=== PATIENT | female | born 1960 | race Caucasian/White ===

== ENCOUNTER 2016-12-08 10:47 | Outpatient (CLI) | payer MEDICAID ==
--- OUTSIDE RECORDS SUMMARY | 2016-12-07 05:54 | XMS REPORT | Continuity of Care Document ---
Author Author [facility] Organization [facility] Address Unknown Phone Unavailable Care Team Providers Care Environmental Management Specialist Name Role Phone PCP Unavailable Source Comments Some departments are not documenting in the electronic medical record. If you do not see the information that you expected, contact Release of Information in the Health Information Management department at [phone] for further assistance in locating additional records.[facility] Active Allergies and Adverse Reactions Not on File Current Medications Not on file Active Problems Not on file Social History Tobacco Use Types Packs/Day Years Used Date Never Assessed Plan of Care Health Maintenance Due Date Last Done Comments Physical (Comprehensive) 1967 Exam Pertussis Vaccine 1971 Tetanus Vaccine 1977 Cervical Cancer Screening 1981 Breast Cancer Screening 2000 Colorectal Cancer 2010 Screening Influenza Vaccine 07/23/2016 Results from Last 3 Months Not on file
[~2016-12-08] VITALS: Ht 162.6 cm; Wt 50.8 kg
[~2016-12-08 10:47] MED LIST: ACLI400A INH; ALBU2.5V52 INH; ALBU8.5H2 INH; ASP81CT PO; ASPI-892 PO; BUDE6HFA IH; BUDE6HFA INH; CETI10TA17 PO; CHOL10003 PO; CLCX200C; CRS350T PO; DIAZ10TA3 PO; ESTR0.9T PO; FENT1PAT5 TD; FLUO20CA25 PO; FLUO40CA PO; FLUO40CA12 PO; FLUT1DIS27; GABA600T2 PO; GABA800T2 PO; LEVO500T69 PO; LEVO750T6 PO; LORA10TA2 PO; LVT.112T; LVT.112T PO; LVT.1T PO; METF-144 PO; METF500T8 PO; METH750T3 PO; MILN100T; MORP60TA12; OLAN1CAP9 PO; OMEG-118 PO; OMEP1CAP10 PO; OMEP40CA36 PO; ORPH100T PO; OXYC-191 PO; OXYC10TA7 PO; OXYC1TAB95; OXYC1TAB95 PO; PRD20T PO; ROFL500T PO; RT-ALBUINH IH; TIOT18CA IH; TOPI100T2 PO; TR1O15 TOP; TRIA1TAB42; VARE1TAB17; [UNRECOGNIZED DRUG - CODE]; [UNRECOGNIZED DRUG - CODE] PO
[2016-12-08] MEDS ORDERED: UBID100C17 PO (10:49)
[2016-12-08] MEDS ORDERED: NFESTCO.45 PO (10:49)
[2016-12-08] MEDS ORDERED: DOCU-143 PO (10:49)
[2016-12-08] MEDS ORDERED: METF500T4 PO (10:49)
[2016-12-08] MEDS ORDERED: VARE1TAB22 PO (10:49)
--- OUTSIDE RECORDS SUMMARY | 2016-12-08 10:50 | XMS REPORT | Continuity of Care Document ---
Author Author [facility] Organization [facility] Address Unknown Phone Unavailable Care Team Providers Care Thread Puller Name Role Phone PCP Unavailable Source Comments Some departments are not documenting in the electronic medical record. If you do not see the information that you expected, contact Release of Information in the Health Information Management department at [phone] for further assistance in locating additional records.[facility] Active Allergies and Adverse Reactions Not [...]
[2016-12-08] MEDS ORDERED: TIOT18CA2 IH (10:56)
[2016-12-08] MEDS ORDERED: IPRA3AMP IH (10:56)
[2016-12-09] MEDS ORDERED: DEXL60CA PO (11:40)
== END 2016-12-08 10:57 ==
LOC: PREOP 10:47
PROVIDERS: ATTEND Surgery Pediatric Surgery
DX: Z01.818 Encounter for other preprocedural examination (principal); R63.4 Abnormal weight loss

== ENCOUNTER 2016-12-09 09:19 | Day surgery (SDC) | payer MEDICAID ==
[~2016-12-09] VITALS: Ht 162.6 cm; Wt 50.8 kg
[~2016-12-09 09:19] MED LIST changes: +DOCU-143 PO; +IPRA3AMP IH; +METF500T4 PO; +NFESTCO.45 PO; +TIOT18CA2 IH; +UBID100C17 PO; +VARE1TAB22 PO
[2016-12-09] MEDS ORDERED: NS IV 500 ML 500 ML ONE ×2 (09:20→10:58)
--- OUTSIDE RECORDS SUMMARY | 2016-12-09 09:24 | XMS REPORT | Continuity of Care Document ---
Author Author [facility] Organization [facility] Address Unknown Phone Unavailable Care Team Providers Care Natural Resource Manager Name Role Phone PCP Unavailable Source Comments Some departments are not documenting in the electronic medical record. If you do not see the information that you expected, contact Release of Information in the Health Information Management department at [phone] for further assistance in locating additional records.[facility] Active Allergies and Adverse Reactions Not [...]
--- OUTSIDE RECORDS SUMMARY | 2016-12-09 09:24 | XMS REPORT | Continuity of Care Document ---
Author Author [facility] Organization [facility] Address Unknown Phone Unavailable Care Team Providers Care Nurse Administrator Name Role Phone PCP Unavailable Source Comments Some departments are not documenting in the electronic medical record. If you do not see the information that you expected, contact Release of Information in the Health Information Management department at [phone] for further assistance in locating additional records.[facility] Active Allergies and Adverse Reactions Not on [...]
[2016-12-09] MEDS ORDERED: FLUMAZENIL (ROMAZICON) 0.1 MG/ML 5 ML VIAL INJ PRN (10:00)
[2016-12-09] MEDS ORDERED: fentaNYL INJECTION 100 MCG/2 ML AMP IVP PRN (10:00)
[2016-12-09] MEDS ORDERED: NALOXONE 0.4 MG/ML 1 ML (NARCAN) VIAL IVP PRN (10:00)
[2016-12-09] MEDS ORDERED: HURRICAINE EXT TUBE (BENZOCAINE) XX PRN (10:00)
[2016-12-09] MEDS ORDERED: MIDAZOLAM 2 MG/2 ML (VERSED) VIAL IVP PRN (10:00)
[2016-12-09] MEDS ORDERED: NS IV 500 ML 500 ML IV PRN (10:00)
[2016-12-09 10:07] VITALS: BP 84/60
[2016-12-09] MEDS ORDERED: FAMOTIDINE 20MG/2ML IV (PEPCID) ONE (10:20)
[2016-12-09] MEDS ORDERED: ONDANSETRON 4 MG/2 ML (SDV) Z0FRAN ONE (10:20)
[2016-12-09] MEDS ORDERED: MIDAZOLAM 5 MG/5 ML (VERSED) VIAL ONE (10:24)
[2016-12-09] MEDS ORDERED: proPOfol 200 MG/20 ML (DIPRIVAN) VIAL IV ONE ×2 (10:24→11:07)
--- NOTE | 2016-12-09 10:26 | Progress Note-Pre Operative ---
Pre-Operative Progress Note H&P Reviewed The H&P was reviewed, patient examined and no changes noted. Date H&P Reviewed: Dec 09, 2016 Time H&P Reviewed: 09:50 Pre-Operative Diagnosis: PUD, GERD, constipation VERA LEBLANC MD Dec 09, 2016 10:25 am
[2016-12-09] MEDS ORDERED: HYDROcodone/APAP 5 MG/325 MG (LORTAB) TAB PO PRN (10:30)
[2016-12-09] MEDS ORDERED: ACETAMINOPHEN 325 MG TABLET/CAPLET (TYLENOL) PO PRN (10:30)
[2016-12-09] MEDS ORDERED: ONDANSETRON 4 MG/2 ML (SDV) Z0FRAN IV PRN (10:30)
[2016-12-09] MEDS ORDERED: morphine INJ 10 MG/ML 1ML (SYR OR VIAL) IV PRN (10:30)
[2016-12-09] MEDS ORDERED: FAMOTIDINE 20MG/2ML IV (PEPCID) IVP ONE (10:45)
[2016-12-09] MEDS ORDERED: ONDANSETRON 4 MG/2 ML (SDV) Z0FRAN IVP ONE (10:45)
--- NOTE | 2016-12-09 11:39 | Progress Note-Post Operative ---
Post-Operative Progess Note Pre-Operative Diagnosis PUD, GERD, constipation Post-Operative Diagnosis reflux esophagitis(class B), small HH(2cm), moderate gastritis. chronic stage 2 ext and int hemorrhoids, moderate sigmoid diverticulosis. Post-Op Procedure Note Date of Procedure: Dec 09, 2016 Name of Procedure: EGD with bx. Colonoscopy. Anesthesia Type MAC Estimated blood loss (mL): minimal Specimen(s) collected GE jxn, antrum VERA LEBLANC MD Dec 09, 2016 11:39 am
[2016-12-09] MEDS ORDERED: DEXL60CA PO (11:40)
--- NOTE | 2016-12-09 11:41 | Discharge Inst-Surgical ---
D/C Lap Instructions-KIDO New, Converted, or Re-Newed RX: RX on Chart Follow Up PRN Activity as tolerated High Fiber Diet 25g or more per day Avoid Alcohol, Caffeine, Spicy [place] and Acid foods. Drink 64 fluid oz or more of fluids per day. Symptoms to Report: Fever over 101 degree F, Nausea/Vomiting If any problems/questions: Contact your physician or go to Emergency Room VERA LEBLANC MD Dec 09, 2016 11:41 am
[2016-12-09 11:45] VITALS: BP 111/54
[2016-12-09 12:15] VITALS: BP 87/50
[2016-12-09 12:35] VITALS: BP 87/50
--- NOTE | 2016-12-10 11:50 | OPERATIVE REPORT ---
PROCEDURE PHYSICIAN: VERA BILLINGS DATE OF PROCEDURE: 12/09/2016 ATTENDING PRIMARY CARE PHYSICIAN: Dr. Renteria PREOPERATIVE DIAGNOSIS: Gastroesophageal reflux disease, peptic ulcer disease, severe constipation and weight loss. POSTOPERATIVE DIAGNOSES: 1. Reflux esophagitis, class B. 2. Small hiatal hernia 1.5 to 2 cm in size. 3. Moderate severity gastritis. 4. Chronic, stage II external and internal hemorrhoids. 5. Moderate sigmoid diverticulosis. PROCEDURE: 1. EGD with biopsy. 2. Colonoscopy. SURGEON: Dr. Billings. ANESTHESIA: Monitored anesthesia care administered by anesthesia. ESTIMATED BLOOD LOSS: Minimal. FINDINGS: EGD: 1. Reflux esophagitis, class B. 2. Small hiatal hernia, approximately 1.5 to 2 cm in size. 3. Moderate severity gastritis. 4. Pylorus and duodenum appeared normal. COLONOSCOPY: 1. Chronic, stage II external and internal hemorrhoids, not actively edematous or inflamed and no bleeding. 2. Moderate sigmoid diverticulosis. 3. The remainder of the colon was normal. There were no polyps or any neoplasms identified. DISPOSITION: The patient tolerated the procedure well. Ms. Yana Pak is a 56-year-old female who we have seen before in the past. She has a history of gastroesophageal reflux disease, peptic ulcer disease, as well as severe constipation. She underwent an EGD and colonoscopy in 2011 and was found to have reflux esophagitis, class B, moderate gastritis, internal hemorrhoids as well as a moderate sigmoid diverticulosis. She states that overall she has done worse in the past few years. The majority of her condition is secondary to stress with issues with one of her children. She states that the stress has caused crampy abdominal pain, loss of appetite and only has one bowel movement every 2 weeks. She states that she takes multiple different stool softeners and lactulose to have a bowel movement. She does not report any red blood per rectum or any dark tarry stools. She does take in a significant amount of pain medication, including narcotic pain medications including fentanyl patch 200 mcg every 48 hours, oxycodone 20 mg q.6 hours. She states that she has to take this for fibromyalgia as well as psoriatic arthritis and chronic pain syndrome. She has lost approximately 20 pounds in the past 5 to 6 months. She reports that her heartburn and reflux have worsened, as well as lower crampy abdominal pain as well. The patient was brought to the endoscopy suite, laid in the left lateral decubitus position. After adequate IV pain and sedative medications and monitored anesthesia care the mouthpiece was applied. The endoscope was placed in the mouth, visualizing the pharynx and hypopharyngeal region. Vocal cords, epiglottis and vallecula identified and appeared to be normal. The endoscope was then gently intubated in the esophageal opening and the esophagus insufflated. The endoscope was then advanced to the first, second, and 3rd portions of the esophagus. At the level of the GE junction, a reflux esophagitis, class B identified. There were no ulcers or strictures identified in this region. A biopsy was taken with forceps of visualization of good hemostasis. The endoscope was then easily advanced into stomach and endoscope retroflexed visualizing a small hiatal hernia, approximately 1.5 to 2 cm in size. There was a moderate severity gastritis towards the stomach antrum. There were no ulcers, polyps or any neoplasms identified. A biopsy was taken of the antrum with forceps with visualization of good hemostasis. The endoscope was then advanced through the pylorus and first and second portions of the duodenum, which appeared normal. There were no distal obstructions. The endoscope was then slowly withdrawn while taking a second look and suctioning of residual air with no additional findings. The patient tolerated this portion of the procedure well. We feel that her symptoms with epigastric pain, reflux, as well as anorexia and weight loss are secondary to gastritis and reflux esophagitis. This most likely is secondary to her continued smoking habit as well as lifestyle including the narcotic pain medications. Stress is also a factor. She is instructed to proceed with the necessary lifestyle and diet accommodation including smoking cessation as well as avoidance of caffeinated beverages, spicy, greasy and acidic foods. We will also proceed with a trial of Dexilant 60 mg daily. COLONOSCOPY: Under the same monitored anesthesia care, we then proceeded with the colonoscopy portion the procedure. A digital rectal examination was performed, which revealed chronic, stage II external and internal hemorrhoids which were not actively edematous or inflamed and no bleeding. Normal sphincter tone was felt and there were no palpable masses. The endoscope was then intubated into the anus and the rectum gently insufflated. The endoscope was advanced through the valves of [place] the rectum with no polyps or any neoplasms identified. Through the sigmoid colon a moderate sigmoid diverticulosis identified. There were no mucosal inflammatory changes to indicate any diverticulitis. The endoscope was then advanced through the remainder of the descending, transverse, and ascending colon to the cecum. These segments were normal. There were no polyps or any neoplasms identified throughout the colon or rectum. The endoscope was slowly withdrawn while taking a second look and suctioning of residual air with no additional findings. The patient tolerated this portion of the procedure well. We will have her continue with medical management with incorporation of a high fiber diet with at least 30 to 35 grams of fiber per day, as well as at least 64 fluid ounces of water daily to promote soft stools on a daily basis. We feel that her constipation is opioid induced as well as diet and lifestyle and she must change these to reverse the issues of constipation. Job ID: [id number] Dictated Date: 12/09/2016 11:37:31 Cad Engineer Date: 12/10/2016 11:37:14 / josef AYOUB
== END 2016-12-09 12:35 | disposition home or self-care (01) ==
LOC: SDC 09:19
PROVIDERS: ATTEND Surgery Pediatric Surgery
DX: K21.0 Gastro-esophageal reflux disease with esophagitis (principal); K64.1 Second degree hemorrhoids; K44.9 Diaphragmatic hernia without obstruction or gangrene; K29.70 Gastritis, unspecified, without bleeding; K57.90 Diverticulosis of intestine, part unspecified, without perforation or abscess without bleeding; E11.9 Type 2 diabetes mellitus without complications; Z79.899 Other long term (current) drug therapy
CPT/HCPCS: 82962

== ENCOUNTER → 2017-01-05 | Outpatient (CLI) | payer MEDICAID ==
[~2017-01-05] MED LIST changes: +DEXL60CA PO
--- OUTSIDE RECORDS SUMMARY | 2017-01-05 14:18 | XMS REPORT | Continuity of Care Document ---
Author Author [facility] Organization [facility] Address Unknown Phone Unavailable Care Team Providers Care Health Diagnostics Teacher Name Role Phone PCP Unavailable Source Comments Some departments are not documenting in the electronic medical record. If you do not see the information that you expected, contact Release of Information in the Health Information Management department at [phone] for further assistance in locating additional records.[facility] Active Allergies and Adverse Reactions [...]
--- NOTE | 2017-01-05 15:44 | Diagnostic Imaging Report ---
EXAMINATION: KUB. INDICATION: Cough. Fever. Weight loss. FINDINGS: There is elevation of the right hemidiaphragm. Cholecystectomy clips are seen. No dilated bowel loops to suggest obstruction. There is a moderate amount of fecal material in the colon and rectum. Calcifications in the pelvis are probably phleboliths. IMPRESSION: No bowel obstruction. Dictated by: Dictated on workstation # [id number]
--- NOTE | 2017-01-05 15:47 | Diagnostic Imaging Report ---
PA and lateral views of the chest. INDICATION: Cough and fever. COMPARISON: 03/27/2016. FINDINGS: There is a minimal right basilar atelectasis or scarring seen in the lateral right lung base. This is an area where a slightly larger opacity was seen in March 2016 exam with probable residual scarring. There is background pulmonary hyperinflation. There is normal cardiac size. No effusion or pneumothorax. Mediastinum and dominick appear unremarkable. IMPRESSION: Minimal right basilar scarring. COPD. Dictated by: Dictated on workstation # [id number]
== END ==
LOC: RAD 14:15
PROVIDERS: ATTEND Family Medicine
DX: R05 Cough (principal); R50.9 Fever, unspecified; R63.4 Abnormal weight loss
CPT/HCPCS: 71020; 74000

== ENCOUNTER → 2017-02-05 | Outpatient (CLI) | payer MEDICAID ==
--- OUTSIDE RECORDS SUMMARY | 2017-02-05 16:24 | XMS REPORT | Continuity of Care Document ---
Author Author [facility] Organization [facility] Address Unknown Phone Unavailable Care Team Providers Care Truck Trailer Final Inspector Name Role Phone PCP Unavailable Source Comments Some departments are not documenting in the electronic medical record. If you do not see the information that you expected, contact Release of Information in the Health Information Management department at [phone] for further assistance in locating additional records.[facility] Active Allergies and Adverse Reactions Not on [...]
[2017-02-05 16:56] LABS: ALANINE AMINOTRANSFERASE 12 U/L (0-55); ALBUMIN 3.6 G/DL (3.2-4.5); ANION GAP 11 MMOL/L (5-14); ASPARTATE AMINO TRANSFERASE 15 U/L (5-34); BILIRUBIN,TOTAL 0.2 MG/DL (0.1-1.0); BLOOD UREA NITROGEN 7 MG/DL (7-18); BUN/CREATININE RATIO 11; CALCIUM 8.9 MG/DL (8.5-10.1); CARBON DIOXIDE 22 MMOL/L (21-32); CHLORIDE 99 MMOL/L (98-107); CREATININE SERUM 0.65 MG/DL (0.60-1.30); GFR ESTIMATED > 60; GLUCOSE 94 MG/DL (70-105); POTASSIUM 3.9 MMOL/L (3.6-5.0); SODIUM 132 MMOL/L (135-145); TOTAL PROTEIN 6.8 G/DL (6.4-8.2)
[2017-02-05 17:17] LABS: BASOPHILS % (AUTO) 0 % (0-10); EOSINOPHILS # (AUTO) 0.1 10^3/uL (0.0-0.3); EOSINOPHILS % (AUTO) 1 % (0-10); LYMPHOCYTES # (AUTO) 3.6 X 10^3 (1.0-4.0); LYMPHOCYTES % (AUTO) 31 % (12-44); MEAN CORPUSCULAR HEMOGLOBIN 29 PG (25-34); MEAN CORPUSCULAR HGB CONC 33 G/DL (32-36); MEAN CORPUSCULAR VOLUME 89 FL (80-99); MEAN PLATELET VOLUME 9.7 FL (7.4-10.4); MONOCYTES # (AUTO) 0.7 X 10^3 (0.0-1.0); MONOCYTES % (AUTO) 6 % (0-12); NEUTROPHILS # (AUTO) 7.3 X 10^3 (1.8-7.8); NEUTROPHILS % (AUTO) 62 % (42-75); PLATELET COUNT 459 10^3/uL (130-400); RED BLOOD COUNT 4.36 10^6/uL (4.35-5.85); RED CELL DISTRIBUTION WIDTH 15.7 % (10.0-14.5); WHITE BLOOD COUNT 11.7 10^3/uL (4.3-11.0)
== END ==
LOC: LAB 16:20
PROVIDERS: ATTEND Surgery
DX: T21.01XA Burn of unspecified degree of chest wall, initial encounter (principal); W40.1XXA Explosion of explosive gases, initial encounter; Y99.8 Other external cause status
CPT/HCPCS: 36415; 80053; 83036; 84134; 85025

== ENCOUNTER 2017-02-19 13:51 | Outpatient (RCR) | payer MEDICAID ==
--- OUTSIDE RECORDS SUMMARY | 2017-02-03 14:19 | XMS REPORT | Continuity of Care Document ---
Author Author [facility] Organization [facility] Address Unknown Phone Unavailable Care Team Providers Care Demo Coordinator Name Role Phone PCP Unavailable Source Comments Some departments are not documenting in the electronic medical record. If you do not see the information that you expected, contact Release of Information in the Health Information Management department at [phone] for further assistance in locating additional records.[facility] Active Allergies and Adverse Reactions Not [...]
== END 2017-02-19 14:51 | disposition home or self-care (01) ==
LOC: WOUNDCARE 13:51
PROVIDERS: ATTEND Surgery
DX: E11.622 Type 2 diabetes mellitus with other skin ulcer (principal); J44.9 Chronic obstructive pulmonary disease, unspecified; T21.21XA Burn of second degree of chest wall, initial encounter; X58.XXXA Exposure to other specified factors, initial encounter; Y99.8 Other external cause status; T65.222A Toxic effect of tobacco cigarettes, intentional self-harm, initial encounter
CPT/HCPCS: 16020; 87070; 87075; 87077; 87186; 87205; 99212

== ENCOUNTER → 2018-09-14 | Outpatient (CLI) | payer MEDICAID ==
[~2018-09-14] MED LIST changes: -IPRA3AMP IH; +IPRA3AMP31 IH; +METF-397 PO; -METF500T4 PO
--- NOTE | 2018-09-14 17:03 | Diagnostic Imaging Report ---
PROCEDURE: US right lower extremity venous. TECHNIQUE: Multiple real-time grayscale images were obtained over the right lower extremity in various projections. Additional duplex Doppler and color Doppler images were also obtained. INDICATION: Right leg swelling FINDINGS: The veins in the right leg have good color-flow and compressibility. There is normal spontaneous and augmented flow. IMPRESSION: Negative venous Doppler of the right leg. Dictated by: Dictated on workstation # [id number]
--- NOTE | 2018-09-14 17:28 | Diagnostic Imaging Report ---
CLINICAL INDICATION: Patient stated her right foot and ankle have swelling at random and radiates to upper leg. No history of trauma or injury. EXAM: X-ray of the pelvis and right hip, AP and frog-leg views. COMPARISON: None. FINDINGS: There is no acute fracture or dislocation. There is a small degenerative spur involving the proximal right femoral head/neck junction region. Left hip shows no significant abnormality. Sacroiliac joints show no significant abnormality. Visualized portions of the sacrum and remaining of the pelvis are unremarkable. Phleboliths are seen in the pelvis. IMPRESSION: 1: There is no acute fracture or dislocation. 2: Mild degenerative disease of the right hip. Dictated by: Dictated on workstation # [id number]
== END ==
LOC: RAD 15:45
PROVIDERS: ATTEND Family Medicine
DX: M16.11 Unilateral primary osteoarthritis, right hip (principal); M79.89 Other specified soft tissue disorders

== ENCOUNTER → 2018-09-15 | Outpatient (CLI) | payer MEDICAID ==
--- NOTE | 2018-09-15 15:30 | Diagnostic Imaging Report ---
INDICATION: Vitamin D deficiency and history of fracture. COMPARISON: No prior studies are available for comparison. FINDINGS: Bone mineral analysis of the lumbar spine and both hips was performed. Bone mineral density of the lumbar spine is 0.991 with T score of -1.7. Bone mineral density of the left femoral neck is 0.738 with T score of -2.2. Bone mineral density of the right femoral neck is 0.789 with a T score of -1.8. IMPRESSION: Findings consistent with osteopenia of the lumbar spine and bilateral femoral necks. Dictated by: Dictated on workstation # [id number]
== END ==
LOC: RAD 11:30
PROVIDERS: ATTEND Family Medicine
DX: E55.9 Vitamin D deficiency, unspecified (principal); Z87.81 Personal history of (healed) traumatic fracture; Z72.0 Tobacco use
CPT/HCPCS: 77080

== ENCOUNTER → 2018-09-15 | Outpatient (CLI) | payer MEDICAID ==
[~2018-09-15] MED LIST changes: +IOHEXOL 350 MG/ML 150 ML (OMNIPAQUE 350) VIAL IV ONE; +NS 250 ML (IVPB) BAG IV ONE
--- NOTE | 2018-09-15 12:35 | Diagnostic Imaging Report ---
PROCEDURE: CT angiography of the chest with contrast. TECHNIQUE: Multiple contiguous axial images were obtained through the chest after uneventful bolus administration of intravenous contrast. 2D reconstructed CTA MIP acquisitions were also performed. INDICATION: Dyspnea and right leg swelling. Comparison is made with noncontrast CT chest from 04/03/2016. Evaluation of the pulmonary arterial system is without evidence of thromboembolism. No filling defects are seen within the central, lobar or segmental branches. The thoracic aorta is normal caliber. No dissection is seen. No pericardial or pleural fluid is identified. No axillary lymphadenopathy is identified. There are occasional prominent mediastinal lymph nodes, seen in the AP window and paratracheal location which appear similar to prior CT. Small lymph nodes in the dominick bilaterally are also seen. Parenchymal dilation does show centrilobular emphysematous changes. There is some linear atelectasis or scarring in the right lower lobe. No parenchymal mass or infiltrate is identified. The upper abdomen is unremarkable. IMPRESSION: 1. No evidence of pulmonary embolism or thoracic aortic dissection. The mediastinal and hilar mildly prominent lymph nodes appear stable. 2. Emphysematous changes in both lungs. Previously noted bilateral infiltrates have resolved since study from 2015. Dictated by: Dictated on workstation # [id number]
== END ==
LOC: RAD 11:32
PROVIDERS: ATTEND Nurse Practitioner Family
DX: J43.9 Emphysema, unspecified (principal); M79.89 Other specified soft tissue disorders
CPT/HCPCS: 71275

== ENCOUNTER → 2018-09-22 | Outpatient (CLI) | payer MEDICAID ==
[~2018-09-22] MED LIST changes: +IOHEXOL 350 MG/ML 100 ML (OMNIPAQUE 350) VIAL IV ONE; -IOHEXOL 350 MG/ML 150 ML (OMNIPAQUE 350) VIAL IV ONE; +RECEIVED CONTRAST (Hold Metformin) IV SCH
--- NOTE | 2018-09-22 13:50 | Diagnostic Imaging Report ---
PROCEDURE: CT abdomen and pelvis with and without contrast. TECHNIQUE: Precontrast acquisitions were acquired through the abdomen and pelvis. Multiple contiguous axial images were obtained through the abdomen and pelvis after the administration of intravenous contrast. INDICATION: Right foot swelling and dyspnea. COMPARISON: Comparison is made with prior CT from 12/09/2010. FINDINGS: The lung bases demonstrate linear parenchymal opacities bilaterally, suggestive of scarring or atelectasis. The liver does demonstrate some mild generalized low density, suggestive of hepatic steatosis. No discrete liver mass is identified. The gallbladder is surgically absent. No biliary ductal dilatation is seen. The pancreas and spleen are unremarkable. No adrenal mass is identified. The kidneys are unremarkable. Aorta is calcified but nonaneurysmal. No central retroperitoneal or mesenteric lymphadenopathy is seen. The small and large bowel loops appear nonobstructed. There is moderate stool within the colon. There is no ascites. The bladder is unremarkable. No pelvic lymphadenopathy is seen. IMPRESSION: 1. Hepatic steatosis. 2. No acute feature in the abdomen and pelvis is seen. No abdominal or pelvic mass or lymphadenopathy is identified. Dictated by: Dictated on workstation # [id number]
== END ==
LOC: RAD 12:50
PROVIDERS: ATTEND Family Medicine
DX: K76.0 Fatty (change of) liver, not elsewhere classified (principal); Z90.49 Acquired absence of other specified parts of digestive tract
CPT/HCPCS: 74178

== ENCOUNTER → 2018-11-07 | Outpatient (CLI) | payer MEDICAID ==
[~2018-11-07] MED LIST changes: -IOHEXOL 350 MG/ML 100 ML (OMNIPAQUE 350) VIAL IV ONE; -NS 250 ML (IVPB) BAG IV ONE; -RECEIVED CONTRAST (Hold Metformin) IV SCH; +RT-ALBUTEROL SULF 2.5 MG/3 ML PRE-MIX VIAL INH ONE; +RT-ALBUTEROL SULF 2.5 MG/3 ML PRE-MIX VIAL ONE
== END ==
LOC: RT 15:32
PROVIDERS: ATTEND Family Medicine
DX: J44.9 Chronic obstructive pulmonary disease, unspecified (principal); R06.00 Dyspnea, unspecified
CPT/HCPCS: 94060; 94729

== ENCOUNTER → 2018-12-26 | Outpatient (CLI) | payer MEDICAID ==
[~2018-12-26] MED LIST changes: -GABA600T2 PO; +GBPN600T PO; -RT-ALBUTEROL SULF 2.5 MG/3 ML PRE-MIX VIAL INH ONE; -RT-ALBUTEROL SULF 2.5 MG/3 ML PRE-MIX VIAL ONE
== END ==
LOC: CARD 14:04
PROVIDERS: ATTEND Nurse Practitioner Family
DX: R06.00 Dyspnea, unspecified (principal); R60.9 Edema, unspecified; I07.1 Rheumatic tricuspid insufficiency
CPT/HCPCS: 93306

== ENCOUNTER → 2019-01-09 | Outpatient (CLI) | payer MEDICAID ==
--- NOTE | 2019-01-09 12:51 | Diagnostic Imaging Report ---
CLINICAL INDICATION: Patient with hypothyroidism. COMPARISONS: None. FINDINGS: THYROID NODULES: None. THYROID GLAND: Slightly small right thyroid gland compared to the left side. Otherwise, the thyroid gland has normal shape and echogenicity. The right lobe measures 2.9 cm x 1.2 cm x 0.9 cm, and the left lobe measures 3.9 cm x 1.0 cm x 0.9 cm in their three dimensions. ISTHMUS: The isthmus is unremarkable and measures 1.5 mm in thickness. IMPRESSION: Slightly small right thyroid gland compared to the left side. Otherwise, thyroid ultrasound examination is unremarkable. There are no thyroid nodules. Dictated by: Dictated on workstation # [id number]
== END ==
LOC: RAD 11:00
PROVIDERS: ATTEND Family Medicine
DX: E03.9 Hypothyroidism, unspecified (principal)
CPT/HCPCS: 76536

== ENCOUNTER 2019-08-14 13:00 | Outpatient (CLI) | payer MEDICAID ==
[~2019-08-14] VITALS: Ht 160 cm; Wt 79.0 kg
[2019-08-14] MEDS ORDERED: UBID200C36 PO (13:34)
[2019-08-14] MEDS ORDERED: FENT1PAT11 TD (13:34)
[2019-08-14] MEDS ORDERED: LEVO50TA6 PO (13:34)
[2019-08-14] MEDS ORDERED: CETI10TA17 PO (13:34)
[2019-08-14] MEDS ORDERED: FLUO40CA12 PO (13:34)
[2019-08-14] MEDS ORDERED: GABA-488 PO (13:34)
[2019-08-14] MEDS ORDERED: BUDE10.2 IH (13:34)
[2019-08-14] MEDS ORDERED: ASPI-999 PO (13:34)
[2019-08-14] MEDS ORDERED: OMEP40CA36 PO (13:34)
[2019-08-14] MEDS ORDERED: ROFL500T PO (13:34)
[2019-08-14] MEDS ORDERED: OXYC15TA79 PO (13:34)
[2019-08-14] MEDS ORDERED: BUDE1AMP2 IH (13:39)
[2019-08-14] MEDS ORDERED: NFBIOT1000 PO (13:39)
[2019-08-14] MEDS ORDERED: CYCL10TA9 PO (13:39)
[2019-08-14] MEDS ORDERED: METH150T PO (13:39)
[2019-08-14] MEDS ORDERED: CHOL200059 PO (13:39)
[2019-08-14] MEDS ORDERED: PROC10TA10 PO (13:39)
[2019-08-14] MEDS ORDERED: FURO40TA4 PO (13:39)
[2019-08-14] MEDS ORDERED: POTA-51 PO (13:39)
[2019-08-14] MEDS ORDERED: FLUC100T6 PO (13:39)
== END 2019-08-14 13:43 | disposition home or self-care (01) ==
LOC: PREOP 13:00
PROVIDERS: ATTEND Surgery
DX: Z01.818 Encounter for other preprocedural examination (principal)

== ENCOUNTER 2019-08-16 10:31 | Day surgery (SDC) | payer MEDICAID ==
[2019-08-16] VITALS (12 sets, daily range): BP systolic 119–151; BP diastolic 57–94
[~2019-08-16] VITALS: Ht 160 cm; Wt 79.0 kg
[~2019-08-16 10:31] MED LIST changes: +ASPI-999 PO; +BUDE10.2 IH; +BUDE1AMP2 IH; +CHOL200059 PO; +CYCL10TA9 PO; +FENT1PAT11 TD; +FLUC100T6 PO; +FURO40TA4 PO; +GABA-488 PO; +LEVO50TA6 PO; +METH150T PO; +NFBIOT1000 PO; +OXYC15TA79 PO; +POTA-51 PO; +PROC10TA10 PO; +UBID200C36 PO
[2019-08-16] MEDS ORDERED: NS IV 500 ML 500 ML ONE (10:38)
[2019-08-16] MEDS ORDERED: HURRICAINE EXT TUBE (BENZOCAINE) XX PRN (11:00)
[2019-08-16] MEDS ORDERED: NS IV 500 ML 500 ML IV PRN (11:00)
[2019-08-16] MEDS ORDERED: LIDOCAINE JELLY 2% 6 ML SYRINGE MM PRN (11:00)
[2019-08-16] MEDS ORDERED: fentaNYL INJECTION 100 MCG/2 ML AMP IVP ONE (11:00)
[2019-08-16] MEDS ORDERED: MIDAZOLAM 2 MG/2 ML (VERSED) VIAL IVP ONE (11:00)
--- NOTE | 2019-08-16 11:25 | Conscious Sedation/ASA ---
Conscious Sedation Pre-Proced Time 11:00 ASA Score 2 For ASA 3 and 4: Consider anesthesia and medical clearance. Also, for patients with a history of failed moderate sedation consider anesthesia. Airway Lungs Heart ASA score ASA 1: a normal healthy patient ASA 2: a patient with a mild systemic disease (mid diabetes, controlled hypertension, obesity ASA 3: a patient with a severe systemic disease that limits activity (angina, COPD, prior Myocardial infarction) ASA 4: a patient with an incapacitating disease that is a constant threat to life (CHF, renal failure) ASA 5: a moribund patient not expected to survive 24 hrs. (ruptured aneurysm) ASA 6: a declared brain- patient whose organs are being harvested. For emergent operations, add the letter E after the classification Mallampati Classification Grade 2 Sedation Plan Analgesia, Amnesia, Plan communicated to team members, Discussed options with patient/fam, Discussed risks with patient/fam The patient is an appropriate candidate to undergo the planned procedure, sedation, and anesthesia. The patient immediately re-assessed prior to indication. VERA LEBLANC MD Aug 16, 2019 11:25
--- NOTE | 2019-08-16 11:26 | Progress Note-Pre Operative ---
Pre-Operative Progress Note H&P Reviewed The H&P was reviewed, patient examined and no changes noted. Date Seen by Provider: Aug 16, 2019 Time Seen by Provider: 11:00 Date H&P Reviewed: Aug 16, 2019 Time H&P Reviewed: 11:00 Pre-Operative Diagnosis: VERA FOX MD Aug 16, 2019 11:26
[2019-08-16] MEDS ORDERED: PANT40TA2 PO (11:28)
--- NOTE | 2019-08-16 11:28 | Discharge Inst-Surgical ---
D/C Lap Instructions-KIDO New, Converted, or Re-Newed RX: RX on Chart Follow Up Activity as tolerated No driving for 24 hours No driving while on pain medications Incentive Spirometry use every 2 hours while awake High Fiber Diet 25g or more per day Avoid Alcohol, Caffeine, Spicy [place] and Acid foods. Drink 64 fluid oz or more of fluids per day. Symptoms to Report: Fever over 101 degree F, Nausea/Vomiting If any problems/questions: Contact your physician or go to Emergency Room VERA LEBLANC MD Aug 16, 2019 11:28
[2019-08-16] MEDS ORDERED: ACETAMINOPHEN 325 MG TABLET PO PRN (11:30)
[2019-08-16] MEDS ORDERED: morphine INJ 10 MG/ML 1ML (SYR OR VIAL) IVP PRN ×2 (11:30)
[2019-08-16] MEDS ORDERED: ONDANSETRON 4 MG/2 ML (SDV) Z0FRAN IVP PRN (11:30)
[2019-08-16] MEDS ORDERED: HYDROcodone/APAP 5 MG/325 MG (LORTAB) TAB PO PRN (11:30)
[2019-08-16] MEDS ORDERED: fentaNYL INJECTION 100 MCG/2 ML AMP ONE ×2 (11:35)
[2019-08-16] MEDS ORDERED: MIDAZOLAM 2 MG/2 ML (VERSED) VIAL ONE ×5 (11:35→12:15)
[2019-08-16] MEDS ORDERED: LIDOCAINE JELLY 2% 6 ML SYRINGE ONE (11:36)
--- NOTE | 2019-08-16 12:52 | Progress Note-Post Operative ---
Post-Operative Progess Note Surgeon (s)/Talent Assistant (s) Surgeon VERA LEBLANC MD Talent Assistant: none Pre-Operative Diagnosis GERD Post-Operative Diagnosis reflux esophagitis(stage 2), mild distal esophageal stricture, small HH(2.5cm), moderate gastritis. Procedure & Operative Findings Date of Procedure 08/16/19 Procedure Performed/Findings egd with bx and balloon dilatation. Anesthesia Type cs Estimated Blood Loss Estimated blood loss (mL): minimal Specimens/Packing Specimens Removed ge jxn, antrum VERA LEBLANC MD Aug 16, 2019 12:52
--- NOTE | 2019-08-16 21:32 | OPERATIVE REPORT ---
DATE OF SERVICE: 08/16/2019 ATTENDING PRIMARY CARE PHYSICIAN: Vika Renteria DO PREOPERATIVE DIAGNOSES: Gastroesophageal reflux disease, regurgitation. POSTOPERATIVE DIAGNOSES: Reflux esophagitis between stage II and III, mild distal esophageal stricture, small hiatal hernia approximately 2 cm in size, moderate gastritis. PROCEDURE: EGD with biopsy and balloon dilatation. SURGEON: Vera Leblanc MD ANESTHESIA: Conscious sedation. ESTIMATED BLOOD LOSS: Minimal. FINDINGS: Reflux esophagitis between stage II and III, mild distal esophageal stricture, small hiatal hernia approximately 2 cm in size, moderate gastritis. DISPOSITION: The patient tolerated the procedure well. INDICATIONS: The patient is a 58-year-old female who we have seen before in the past. We had done an EGD and colonoscopy on her in 2011 for reflux as well as sigmoid diverticulosis and internal hemorrhoids. She also was found to have a hiatal hernia approximately 2 cm in size at that time as well. She reports in the past 6 months she has had worsening reflux and regurgitation; however, she does have a number of risk factors including chronic pain issues and constipation and is on a fentanyl patch as well as oxycodone regularly. She also does have a history of COPD and a long smoking history; however, states that she quit in 2019. DESCRIPTION OF PROCEDURE: The patient was brought to the endoscopy suite and laid in the left lateral decubitus position. After adequate IV pain and sedative medications and conscious sedation anesthesia, the mouthpiece was applied. The endoscope was placed into the mouth visualizing the pharynx and hypopharyngeal region. Vocal cords, epiglottis and vallecula identified and appeared to be normal. The endoscope was gently abated esophageal opening and esophagus insufflated. The endoscope was then advanced through the valves of Wills. Through the first, second and third portion of the esophagus at the level of the GE junction, reflux esophagitis stage II identified. Between stage II and III with a mild Schatzki's ring identified and mild distal esophageal stricture. A biopsy was taken of this region with forceps with visualization of good hemostasis. The endoscope was then easily advanced in the stomach and endoscope retroflexed, visualizing a small hiatal hernia again 2 to 2.5 cm in size. This has not changed in size. There was a moderate severity of gastritis. No formal ulcerations, polyps, or any neoplasms. A biopsy was taken of the antrum to rule out H. pylori with visualization of good hemostasis. Endoscope was then advanced to the pylorus and the first and second portion of the duodenum with no distal obstructions identified. The endoscope was then advanced to the pylorus and the first and second portion of the duodenum, which were normal with no distal obstructions. We then proceeded with dilatation of the distal esophageal stricture. The balloon was placed in the stomach and pulled back to the area of the stricture and we first proceeded to 2 atmospheres of pressure with no resistance. We then proceeded to 4 atmospheres of pressure with minimal resistance. We then proceeded to 6 atmospheres of pressure 20 mm in circumferential diameter with mild resistance and left this in place for approximately 60 seconds. The balloon was then desufflated and removed with visualization of good hemostasis as well as no mucosal tears. Endoscope was then slowly withdrawn while taking a second look and suctioning residual air with no additional findings. The patient tolerated the procedure well. We will recommend the necessary lifestyle and diet accommodation including avoidance of smoking, caffeinated beverages, spicy, greasy and acidic foods as well as taking in small and more frequent meals and avoidance of eating at night as well as head elevation while lying supine. Any form of weight loss and exercise regimen would also help with her symptoms. We will also proceed with a trial of Protonix 40 mg daily as well as Carafate 1 gram q.i.d. for the next 2 weeks, then on a p.r.n. basis. Job ID: [id number] DocumentID: [id number] Dictated Date: 08/16/2019 12:27:13 Machine Operations Supervisor Date: 08/16/2019 21:30:54 Dictated By: VERA LEBLANC MD
== END 2019-08-16 13:05 | disposition home or self-care (01) ==
LOC: ENDO 10:31
PROVIDERS: ATTEND Surgery
DX: K21.0 Gastro-esophageal reflux disease with esophagitis (principal); K22.2 Esophageal obstruction; K44.9 Diaphragmatic hernia without obstruction or gangrene; K29.50 Unspecified chronic gastritis without bleeding; G89.4 Chronic pain syndrome; K59.00 Constipation, unspecified; J44.9 Chronic obstructive pulmonary disease, unspecified; E11.40 Type 2 diabetes mellitus with diabetic neuropathy, unspecified; G35 Multiple sclerosis; I10 Essential (primary) hypertension; E03.9 Hypothyroidism, unspecified; F32.9 Major depressive disorder, single episode, unspecified; M79.7 Fibromyalgia; E78.00 Pure hypercholesterolemia, unspecified; Z87.19 Personal history of other diseases of the digestive system; Z86.73 Personal history of transient ischemic attack (TIA), and cerebral infarction without residual deficits; Z87.891 Personal history of nicotine dependence; Z85.42 Personal history of malignant neoplasm of other parts of uterus; Z79.899 Other long term (current) drug therapy; Z79.82 Long term (current) use of aspirin
CPT/HCPCS: 82962; 88305; 88342

== ENCOUNTER → 2019-12-06 | Outpatient (CLI) | payer MEDICAID ==
[~2019-12-06] MED LIST changes: +OMEP40CA27 PO; +PANT40TA2 PO
--- NOTE | 2019-12-06 10:32 | Diagnostic Imaging Report ---
PROCEDURE: US Hepatic (Liver). TECHNIQUE: Multiple real-time grayscale images were obtained over the right upper quadrant in various projections. INDICATION: Right upper quadrant abdominal pain. The liver is enlarged at 21.3 cm. Diffuse increased echogenicity throughout the liver is noted consistent with hepatic steatosis. No discrete liver mass is identified. The portal vein is patent and shows normal direction of flow. The gallbladder is surgically absent. Visualized pancreas is unremarkable. The IVC is patent. Right kidney is unremarkable. No calculi or hydronephrosis is seen. IMPRESSION: 1. Hepatomegaly and hepatic steatosis. 2. Status post cholecystectomy. 3. No other significant abnormality is seen. Dictated by: Dictated on workstation # [id number]
== END ==
LOC: RAD 09:01
PROVIDERS: ATTEND Family Medicine
DX: K76.0 Fatty (change of) liver, not elsewhere classified (principal); R16.0 Hepatomegaly, not elsewhere classified
CPT/HCPCS: 76705

== ENCOUNTER 2019-12-12 12:52 | Outpatient (RCR) | payer MEDICAID ==
[2019-12-05 13:17] VITALS: BP 127/70
[2019-12-05] MEDS: FERRIC CARBOXYMALTOSE INJ 750 MG in NS (IVPB) 250 ML IV SCH (13:36)
[~2019-12-12] VITALS: Ht 165.1 cm; Wt 79.0 kg
[2019-12-12 12:51] VITALS: BP 111/42
[2019-12-12] MEDS: FERRIC CARBOXYMALTOSE INJ 750 MG in NS (IVPB) 250 ML IV SCH (13:07)
== END 2019-12-12 13:30 | disposition home or self-care (01) ==
LOC: SDC 12:52
PROVIDERS: ATTEND Family Medicine
DX: D50.9 Iron deficiency anemia, unspecified (principal)
CPT/HCPCS: 96365

== ENCOUNTER 2020-04-24 16:45 | Observation (INO) | payer MEDICAID ==
[~2020-04-24] VITALS: Ht 162.6 cm; Wt 90.5 kg
[~2020-04-24 16:45] MED LIST changes: +OXYC-525 PO; -OXYC15TA79 PO
[2020-04-24] MEDS ORDERED: ONDANSETRON 4 MG/2 ML (SDV) Z0FRAN IVP PRN (17:00)
[2020-04-24] MEDS ORDERED: NITROGLYCERIN 0.4 MG SL TABS BTL 25'S SL PRN (17:00)
[2020-04-24] MEDS ORDERED: PATIENT MAY USE OWN MEDS, ALL PO SCH (17:00)
[2020-04-24] MEDS ORDERED: PATIENT MAY USE OWN MEDS, ALL MC SCH (17:15)
[2020-04-24] MEDS ORDERED: ENOXAPARIN 40 MG/0.4 ML (LOVENOX) SYR SC SCH (17:15)
[2020-04-24] MEDS ORDERED: PANTOPRAZOLE 40 MG (PROTONIX) TAB PO NR (17:30)
--- NOTE | 2020-04-24 17:35 | Diagnostic Imaging Report ---
Indication: Chest pain Portable chest 5:28 PM Heart size and pulmonary vascularity are normal. Lungs are clear. There are no effusions or pneumothoraces. IMPRESSION: Negative chest Dictated by: Dictated on workstation # [id number]
[2020-04-24 17:44] VITALS: BP 154/94
[2020-04-24 18:00] VITALS: BP 170/86
[2020-04-24 18:30] VITALS: BP 178/86
[2020-04-24] MEDS ORDERED: meTOproloL SUCCINATE 50 MG (TOPROL XL) TAB PO NR (18:30)
[2020-04-24 18:45] VITALS: BP 152/71
[2020-04-24 18:47] LABS: BASOPHILS % (AUTO) 0 % (0-10); EOSINOPHILS # (AUTO) 0.2 10^3/uL (0.0-0.3); EOSINOPHILS % (AUTO) 2 % (0-10); HEMATOCRIT 38 % (35-52); HEMOGLOBIN 12.7 G/DL (11.5-16.0); LYMPHOCYTES # (AUTO) 2.6 X 10^3 (1.0-4.0); LYMPHOCYTES % (AUTO) 33 % (12-44); MEAN CORPUSCULAR HEMOGLOBIN 32 PG (25-34); MEAN CORPUSCULAR HGB CONC 33 G/DL (32-36); MEAN CORPUSCULAR VOLUME 96 FL (80-99); MEAN PLATELET VOLUME 9.9 FL (7.4-10.4); MONOCYTES # (AUTO) 0.6 X 10^3 (0.0-1.0); MONOCYTES % (AUTO) 8 % (0-12); NEUTROPHILS # (AUTO) 4.5 X 10^3 (1.8-7.8); NEUTROPHILS % (AUTO) 57 % (42-75); PLATELET COUNT 258 10^3/uL (130-400); RED CELL DISTRIBUTION WIDTH 13.2 % (10.0-14.5); WHITE BLOOD COUNT 7.8 10^3/uL (4.3-11.0)
[2020-04-24] MEDS ORDERED: ACETAMINOPHEN 325 MG TABLET ONE (18:52)
[2020-04-24 18:58] LABS: ALBUMIN 4.1 GM/DL (3.2-4.5); CHLORIDE 104 MMOL/L (98-107)
[2020-04-24 18:59] LABS: POTASSIUM 3.8 MMOL/L (3.6-5.0); SODIUM 137 MMOL/L (135-145)
[2020-04-24 19:00] LABS: CALCIUM 9.5 MG/DL (8.5-10.1)
[2020-04-24] MEDS ORDERED: ACETAMINOPHEN 325 MG TABLET PO PRN (19:00)
[2020-04-24 19:01] LABS: FIBRIN DEGRADATION PRODUCTS 0.38 UG/ML (0.00-0.49); GLUCOSE 98 MG/DL (70-105); INR 0.9 (0.8-1.4); PROTHROMBIN TIME PATIENT 12.2 SEC (12.2-14.7); TOTAL PROTEIN 6.9 GM/DL (6.4-8.2)
[2020-04-24 19:02] LABS: CARBON DIOXIDE 22 MMOL/L (21-32)
[2020-04-24 19:03] LABS: BILIRUBIN,TOTAL 0.3 MG/DL (0.1-1.0)
[2020-04-24 19:04] LABS: ALKALINE PHOSPHATASE 67 U/L (40-136); CREATININE SERUM 0.79 MG/DL (0.60-1.30); GFR ESTIMATED > 60
[2020-04-24] MEDS: RT-ALBUTEROL/IPRATROPIUM 3 ML (DUONEB) VIAL INH SCH (19:05)
[2020-04-24 19:06] LABS: BUN/CREATININE RATIO 10
[2020-04-24 19:07] LABS: ALANINE AMINOTRANSFERASE 74 U/L (0-55)
[2020-04-24 20:00] VITALS: BP 144/80
[2020-04-24] MEDS: morphine ER 100 MG (MS CONTIN) TAB PO SCH (20:17)
[2020-04-24] MEDS: hydrOXYzine (VISTARIL/ATARAX) 25 MG capsule/tablet PO SCH (20:17)
[2020-04-24] MEDS: GABAPENTIN 600 MG (NEURONTIN) TAB PO SCH (20:18)
--- OUTSIDE RECORDS SUMMARY | 2020-04-24 21:46 | XMS REPORT | CCD ---
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 1 11/28/2017 Inactive furosemide 40 mg tablet RxNorm: 149771 2 Tablet(s) PO Q AM for 1 week then every other day for 2 weeks 09/27/2018 10/12/2018 Inactive fluoxetine 40 mg capsule RxNorm: 189057 2 Capsule(s) PO QD 09/27/20 18 10/17/2018 Inactive potassium chloride ER 20 mEq tablet,extended release RxNorm: 639538 2 Tablet(s) PO QD for 1 week then every other day for 2 weeks 09/27/2018 2018 Inactive ProAir HFA 90 mcg/actuation aerosol inhaler RxNorm: 9988382 INHALE ONE PUFF BY MOUTH EVERY 4 HOURS FOR WHEEZING OR SHORTNESS OF BREATH 09/26/201811/23 Inactive Synthroid 75 mcg tablet RxNorm: 291866 1 Tablet(s) PO QD 09/09/2018 1 Inactive Synthroid 75 mcg tablet RxNorm: 509726 1 Tablet(s) PO QD 09/09/2018 1 11/28/2017 Inactive furosemide 40 mg tablet RxNorm: 604282 1 Tablet(s) PO QD 09/06/2018 1 Inactive potassium chloride ER 20 mEq tablet,extended release RxNorm: 860308 1 Tablet(s) PO QD 09/06/2018 09/19/2018 Inactive Duragesic 100 mcg/hr transdermal patch RxNorm: 451917 2 Application TD Q48H for pain 08/30/2018 09/28/2018 Inactive gabapentin 300 mg capsule RxNorm: 373035 TAKE ONE CAPSULE BY [facility] TWICE A DAY 08/23/2018 12/20/2018 Inactive Daliresp 500 mcg tablet RxNorm: 9965114 TAKE ONE TABLET BY MOUTH DAILY 08/23/2018 01/19/2019 Inactive Pulmicort 1 mg/2 mL suspension for nebulization RxNorm: 6168 19 USE ONE VIAL VIA NEBULIZER BY MOUTH TWICE A DAY 08/23/2018 07/11/2019 Inactive Synthroid 88 mcg tablet RxNorm: 799540 1 Tablet(s) PO QD 08/19/2018 1 Inactive Medrol (Aníbal) 4 mg tablets in a dose pack RxNorm: 008729 Tablet(s) PO take as directed 08/16/2018 09/05/2018 Inactive Relistor 150 mg tablet RxNorm: 7124812 3 Tablet(s) PO QD 08/16/2018 1 Inactive Zithromax Z-Aníbal 250 mg tablet RxNorm: 543252 Tablet(s) PO take as directed 08/16/2018 09/05/2018 Inactive cyclobenzaprine 10 mg tablet RxNorm: 016194 1 Tablet(s) PO TID as needed 08/16/2018 11/08/2018 Inactive Synthroid 88 mcg tablet RxNorm: 626840 1 Tablet(s) PO Q D NEEDS UPDATED LABS BEFORE FURTHER REFILLS 08/08/2018 08/19/2018 Inactive Premarin 0.45 mg tablet RxNorm: 662318 1 Tablet(s) PO QD 08/03/2018 0 01/31/2019 Inactive fluoxetine 20 mg capsule RxNorm: 621861 TAKE ONE CAPSULE BY BENOIT TH DAILY 08/03/2018 09/26/2018 Inactive Xtampza ER 36 mg capsule sprinkle RxNorm: 7997989 1 Capsule(s) P O BID 08/03/2018 09/01/2018 Inactive metformin ER 500 mg tablet,extended release 24 hr RxNorm: 86 0975 1 Tablet(s) PO QD 08/03/2018 10/31/2018 Inactive Symbicort 160 mcg-4.5 mcg/actuation HFA aerosol inhaler RxNo rm: 4870628 2 Puff(s) INH BID 08/03/2018 01/29/2019 Inactive Duragesic 100 mcg/hr transdermal patch RxNorm: 343833 2 Application TD Q48H for pain 07/29/2018 08/27/2018 Inactive ProAir HFA 90 mcg/actuation aerosol inhaler RxNorm: 884373 INHALE TWO PUFFS BY MOUTH EVERY 4 HOURS FOR WHEEZING OR SHORTNESS OF BREATH 07/27/201802/2018 Inactive Relistor 150 mg tablet RxNorm: 3207194 3 Tablet(s) PO QD 07/20/2018 0 08/15/2018 Inactive metformin ER 500 mg tablet,extended release 24 hr RxNorm: 86 0975 TAKE ONE TABLET BY MOUTH DAILY 07/08/2018 08/02/2018 Inactive fluoxetine 40 mg capsule RxNorm: 740020 TAKE ONE CAPSULE BY BENOIT TH EVERY MORNING 07/08/2018 10/05/2018 Inactive Xtampza ER 18 mg capsule sprinkle RxNorm: 9343341 1 Capsule(s) P O BID 07/08/2018 08/02/2018 Inactive Relistor 150 mg tablet RxNorm: 2504918 3 Tablet(s) PO QD 07/08/2018 0 07/12/2018 Inactive Synthroid 88 mcg tablet RxNorm: 401293 1 Tablet(s) PO Q D NEEDS UPDATED LABS BEFORE FURTHER REFILLS 06/23/2018 07/07/2018 Inactive fluoxetine 40 mg capsule RxNorm: 221181 TAKE ONE CAPSULE BY BENOIT TH EVERY MORNING 06/15/2018 09/26/2018 Inactive orphenadrine citrate ER 100 mg tablet,extended release RxNor m: 878072 TAKE ONE TABLET BY MOUTH TWICE A DAY FOR MUSCLE SPASM 06/15/2018 08/15/2018 Renu ctive Duragesic 100 mcg/hr transdermal patch RxNorm: 254163 2 Application TD Q48H for pain 05/30/2018 06/28/2018 Inactive ProAir HFA 90 mcg/actuation aerosol inhaler RxNorm: 545746 INHALE TWO PUFFS BY MOUTH EVERY 4 HOURS FOR WHEEZING OR SHORTNESS OF BREATH 05/19/20180 03/2018 Inactive Chantix Continuing Month Box 1 mg tablet RxNorm: 374929 TAKE ONE TABLET BY MOUTH TWICE A DAY 05/19/2018 08/15/2018 Inactive oxycodone 10 mg tablet RxNorm: 7800264 1-2 Tablet(s) PO QID as n eeded for pain 05/19/2018 07/07/2018 Inactive gabapentin 300 mg capsule RxNorm: 630152 TAKE ONE CAPSULE BY MO UTH TWICE A DAY 05/18/2018 07/16/2018 Inactive ProAir HFA 90 mcg/actuation aerosol inhaler RxNorm: 248882 INHALE TWO PUFFS BY MOUTH EVERY 4 HOURS FOR WHEEZING OR SHORTNESS OF BREATH 05/04/201804/23 Inactive Augmentin 500 mg-125 mg tablet RxNorm: 540758 1 Tablet(s) PO BID 05/03/2018 Inactive oxycodone 10 mg tablet RxNorm: 5814326 1-2 Tablet(s) PO QID as n eeded for pain 04/21/2018 05/18/2018 Inactive Synthroid 88 mcg tablet RxNorm: 980799 1 Tablet(s) PO QD 04/15/2018 0 08/08/2018 Inactive Symbicort 160 mcg-4.5 mcg/actuation HFA aerosol inhaler RxNo rm: 6984435 2 Puff(s) INH BID 04/15/2018 04/10/2019 Inactive Premarin 0.45 mg tablet RxNorm: 928424 1 Tablet(s) PO QD 04/15/2018 0 08/03/2018 Inactive ProAir HFA 90 mcg/actuation aerosol inhaler RxNorm: 620847 2 Puff(s) INH Q4H prn for wheezing or shortness of breath 04/15/2018 05/03/2018 Inactive metformin ER 500 mg tablet,extended release 24 hr RxNorm: 86 0975 1 Tablet(s) PO QD 04/11/2018 07/07/2018 Inactive omeprazole 40 mg capsule,delayed release RxNorm: 660780 TAKE ONE CAPSULE BY MOUTH DAILY 04/10/2018 06/08/2018 Inactive Synthroid 88 mcg tablet RxNorm: 970287 1 Tablet(s) PO QD 04/04/2018 0 04/14/2018 Inactive Synthroid 88 mcg tablet RxNorm: 677419 1 Tablet(s) PO QD 04/04/2018 0 04/03/2018 Inactive orphenadrine citrate ER 100 mg tablet,extended release RxNor m: 298748 1 Tablet(s) PO BID for muscle spasm 04/04/2018 05/03/2018 Inactive metformin ER 500 mg tablet,extended release 24 hr RxNorm: 86 0975 1 Tablet(s) PO QD NEEDS UPDATED LABS 03/31/2018 04/11/2018 Inactive doxycycline hyclate 100 mg capsule RxNorm: 7339819 1 Capsule(s) PO BID 03/31/2018 04/09/2018 Inactive prednisone 20 mg tablet RxNorm: 777040 3 Tablet(s) PO T ID for 3 days then 1 po BID for 3 days then one daily for 3 days 03/31/2018 07/06/2018 Inactiv e Chantix Continuing Month Box 1 mg tablet RxNorm: 529449 TAKE ONE TABLET BY MOUTH TWICE A DAY 03/25/2018 03/30/2018 Inactive oxycodone 10 mg tablet RxNorm: 8975190 1-2 Tablet(s) PO QID as n eeded for pain 03/21/2018 04/20/2018 Inactive Daliresp 500 mcg tablet RxNorm: 9537572 1 Tablet(s) PO QD 03/15/2018 08/22/2018 Inactive metformin ER 500 mg tablet,extended release 24 hr RxNorm: 86 0975 1 Tablet(s) PO QD NEEDS UPDATED LABS 03/14/2018 03/31/2018 Inactive nystatin 100,000 unit/mL oral suspension RxNorm: 260803 5 Chio liter(s) PO QID 03/02/2018 03/15/2018 Inactive nystatin 100,000 unit/mL oral suspension RxNorm: 684181 5 Chio liter(s) PO QID 03/02/2018 03/01/2018 Inactive oxycodone 10 mg tablet RxNorm: 7142671 1-2 Tablet(s) PO QID as n eeded for pain 02/16/2018 03/20/2018 Inactive fluoxetine 20 mg capsule RxNorm: 630438 1 Capsule(s) PO QD 02/15/20 18 08/02/2018 Inactive metformin ER 500 mg tablet,extended release 24 hr RxNorm: 86 0975 1 Tablet(s) PO QD Needs updated labs 02/14/2018 03/14/2018 Inactive cefdinir 300 mg capsule RxNorm: 447785 1 Capsule(s) PO BID 01/27/20 18 02/04/2018 Inactive orphenadrine citrate ER 100 mg tablet,extended release RxNor m: 318378 1 Tablet(s) PO BID for muscle spasm 01/26/2018 04/04/2018 Inactive gabapentin 300 mg capsule RxNorm: 334320 1 Capsule(s) PO BID 201704/17/2018 Inactive oxycodone 10 mg tablet RxNorm: 1323537 1-2 Tablet(s) PO QID as n eeded for pain 01/17/2018 02/15/2018 Inactive Duragesic 100 mcg/hr transdermal patch RxNorm: 484193 2 Application TD Q48H for pain 01/17/2018 02/15/2018 Inactive gabapentin 300 mg capsule RxNorm: 306562 TAKE ONE CAPSULE BY MO UTH TWICE A DAY 12/20/2017 01/18/2018 Inactive fluoxetine 40 mg capsule RxNorm: 849951 TAKE ONE CAPSULE BY BENOIT TH EVERY MORNING 12/15/2017 03/14/2018 Inactive OneTouch Ultra Test strips RxNorm: TEST DAILY 11/04/2017 02/01/2018 Inactive gabapentin 300 mg capsule RxNorm: 956304 1 Capsule(s) P O TID replaces BID dosing 10/26/2017 02/22/2018 Inactive oxycodone 10 mg tablet RxNorm: 3361894 1-2 Tablet(s) PO QID as n eeded for pain 10/18/2017 01/16/2018 Inactive Duragesic 100 mcg/hr transdermal patch RxNorm: 244612 2 Application TD Q48H for pain 10/18/2017 11/16/2017 Inactive gabapentin 300 mg capsule RxNorm: 945235 1 Capsule(s) PO BID 201610/25/2017 Inactive Abilify 5 mg tablet RxNorm: 726823 1 Tablet(s) PO QAM 09/23/201702/2017 Inactive gabapentin 300 mg capsule RxNorm: 634194 1 Capsule(s) PO BID 201610/17/2017 Inactive oxycodone 10 mg tablet RxNorm: 2072352 1-2 Tablet(s) PO QID as n eeded for pain 09/15/2017 10/17/2017 Inactive Duragesic 100 mcg/hr transdermal patch RxNorm: 680204 2 Application TD Q48H for pain 09/15/2017 10/14/2017 Inactive Duragesic 100 mcg/hr transdermal patch RxNorm: 526230 2 Application TD Q48H for pain 09/15/2017 10/24/2019 Inactive oxycodone 10 mg tablet RxNorm: 7739841 1-2 Tablet(s) PO QID as n eeded for pain 09/15/2017 08/15/2018 Inactive Daliresp 500 mcg tablet RxNorm: 2167861 1 Tablet(s) PO QD 09/06/2017 03/15/2018 Inactive Ventolin HFA 90 mcg/actuation aerosol inhaler RxNorm: 751042 2 Puff(s) INH Q4H as needed 09/02/2017 05/19/2018 Inactive oxycodone 10 mg tablet RxNorm: 6849228 1-2 Tablet(s) PO QID as n eeded for pain 08/17/2017 09/14/2017 Inactive Duragesic 100 mcg/hr transdermal patch RxNorm: 663698 2 Application TD Q48H for pain 08/17/2017 09/14/2017 Inactive fluoxetine 40 mg capsule RxNorm: 719278 Capsule(s) TAKE ONE CAPSULE BY MOUTH EVERY MORNING 08/17/2017 12/14/2017 Inactive Pulmicort 1 mg/2 mL suspension for nebulization RxNorm: 6168 19 1 Unit Dose INH BID Dx: COPD (J44.9) 08/16/2017 08/22/2018 Inactive gabapentin 300 mg capsule RxNorm: 113523 1 Capsule(s) PO QHS 201610/18/2017 Inactive fluoxetine 20 mg capsule RxNorm: 079259 1 Capsule(s) PO QD 08/12/20 17 02/14/2018 Inactive Abilify 2 mg tablet RxNorm: 049743 1 Tablet(s) PO QD TA KE ONE TABLET BY MOUTH DAILY 08/12/2017 10/25/2017 Inactive metformin ER 500 mg tablet,extended release 24 hr RxNorm: 86 0975 1 Tablet(s) PO QD 08/10/2017 02/14/2018 Inactive Synthroid 112 mcg tablet RxNorm: 607992 1 Tablet(s) PO QD 08/10/2017 04/15/2018 Inactive oxycodone 10 mg tablet RxNorm: 0974044 1-2 Tablet(s) PO QID as n eeded for pain 07/19/2017 08/16/2017 Inactive Duragesic 100 mcg/hr transdermal patch RxNorm: 529987 2 Application TD Q48H for pain 07/19/2017 08/16/2017 Inactive Ventolin HFA 90 mcg/actuation aerosol inhaler RxNorm: 740355 2 Puff(s) INH Q4H as needed 07/12/2017 09/02/2017 Inactive Abilify 2 mg tablet RxNorm: 561888 1 Tablet(s) PO QD TA KE ONE TABLET BY MOUTH DAILY 07/06/2017 08/11/2017 Inactive gabapentin 800 mg tablet RxNorm: 132953 1 Tablet(s) PO TID 06/22/20 17 07/05/2017 Inactive Chantix Starting Month Box 0.5 mg (11)-1 mg (42) table ts in dose pack RxNorm: 611190 TAKE BY MOUTH INSTRUCTED - PER PACKAGE INSTRUCTIONS 06/0707/04/2017 Inactive Ventolin HFA 90 mcg/actuation aerosol inhaler RxNorm: 035995 2 Puff(s) INH Q4H as needed 05/26/2017 07/12/2017 Inactive Duragesic 100 mcg/hr transdermal patch RxNorm: 062682 2 Application TD Q48H for pain 05/19/2017 06/17/2017 Inactive oxycodone 10 mg tablet RxNorm: 2069938 1-2 Tablet(s) PO QID as n eeded for pain 05/19/2017 07/18/2017 Inactive Abilify 2 mg tablet RxNorm: 309377 TAKE ONE TABLET BY MOUTH DAILY 0 05/10/2017 07/05/2017 Inactive Synthroid 112 mcg tablet RxNorm: 478002 1 Tablet(s) PO QD 05/06/2017 08/10/2017 Inactive metformin ER 500 mg tablet,extended release 24 hr RxNorm: 86 0975 1 Tablet(s) PO QD 05/06/2017 08/10/2017 Inactive Topamax 100 mg tablet RxNorm: 505074 1 Tablet(s) PO QHS 05/06/2017 Inactive Premarin 0.45 mg tablet RxNorm: 742225 1 Tablet(s) PO QD 05/06/2017 0 04/15/2018 Inactive orphenadrine citrate ER 100 mg tablet,extended release RxNor m: 384635 1 Tablet(s) PO TID for muscle spasm--replaces methocarbamol 04/29/2017 Inactive oxycodone 10 mg tablet RxNorm: 0508202 1-2 Tablet(s) PO QID as n eeded for pain 04/21/2017 05/18/2017 Inactive Duragesic 100 mcg/hr transdermal patch RxNorm: 088082 2 Application TD Q48H for pain 04/21/2017 05/18/2017 Inactive fluoxetine 40 mg capsule RxNorm: 162147 Capsule(s) TAKE ONE CAPSULE BY MOUTH EVERY MORNING 04/20/2017 08/17/2017 Inactive Ventolin HFA 90 mcg/actuation aerosol inhaler RxNorm: 564697 2 Puff(s) INH Q4H as needed 04/05/2017 05/26/2017 Inactive Symbicort 160 mcg-4.5 mcg/actuation HFA aerosol inhaler RxNo rm: 9625253 2 Puff(s) INH BID 03/30/2017 04/15/2018 Inactive Spiriva with HandiHaler 18 mcg and inhalation capsules RxNor m: 800278 1 Capsule(s) INH QD USING HANDIHALER 03/30/2017 02/12/2019 Inactive Duragesic 100 mcg/hr transdermal patch RxNorm: 699809 2 Application TD Q48H for pain 03/18/2017 04/16/2017 Inactive oxycodone 10 mg tablet RxNorm: 4186206 1-2 Tablet(s) PO QID as n eeded for pain 03/18/2017 04/20/2017 Inactive metformin ER 500 mg tablet,extended release 24 hr RxNorm: 86 0975 Tablet(s) TAKE ONE TABLET BY MOUTH DAILY 03/01/2017 05/06/2017 Inactive Premarin 0.45 mg tablet RxNorm: 280602 Tablet(s) TAKE ONE TABLE T BY MOUTH DAILY 03/01/2017 05/06/2017 Inactive Synthroid 112 mcg tablet RxNorm: 521704 Tablet(s) TAKE ONE TABLET BY MOUTH DAILY 03/01/2017 05/06/2017 Inactive Daliresp 500 mcg tablet RxNorm: 3829512 1 Tablet(s) PO QD 03/01/2017 09/06/2017 Inactive 16.2 mg-0.1037 mg-0.0194 mg tablet RxNorm: 9484685 Tablet(s) PO PRN for gas and cramping 02/23/2017 04/28/2017 Inactive TAKE TWO TABLET S BY MOUTH THREE TIMES A DAY NEEDED FOR GAS AND CRAMPING gabapentin 800 mg tablet RxNorm: 789697 1 Tablet(s) PO TID repl aces 600mg 02/23/2017 04/28/2017 Inactive Duragesic 100 mcg/hr transdermal patch RxNorm: 128282 2 Application TD Q48H for pain 02/17/2017 03/17/2017 Inactive fluoxetine 20 mg capsule RxNorm: 568279 1 Capsule(s) PO QD 02/18/20 17 08/12/2017 Inactive oxycodone 20 mg tablet RxNorm: 6241381 1 Tablet(s) PO QID as nee ded for pain 02/17/2017 03/17/2017 Inactive Ventolin HFA 90 mcg/actuation aerosol inhaler RxNorm: 896880 INHALE TWO PUFFS BY MOUTH EVERY 4 HOURS NEEDED 02/15/2017 04/05/2017 Inactive Silvadene 1 % topical cream RxNorm: 285622 1 Application TOP BI D to burn area 02/01/2017 09/22/2017 Inactive Topamax 100 mg tablet RxNorm: 528548 TAKE ONE TABLET BY MOUTH EVERY NIGHT AT BEDTIME 01/29/2017 05/06/2017 Inactive Chantix Starting Month Box 0.5 mg (11)-1 mg (42) table ts in dose pack RxNorm: 386032 Tablet(s) PO as directed 01/29/2017 06/01/2017 Inactive Abilify 2 mg tablet RxNorm: 349957 TAKE ONE TABLET BY MOUTH DAILY 0 01/26/2017 04/25/2017 Inactive Chantix Starting Month Box 0.5 mg (11)-1 mg (42) table ts in dose pack RxNorm: 203533 Tablet(s) PO as directed 01/20/2017 01/28/2017 Inactive gabapentin 600 mg tablet RxNorm: 536376 1 Tablet(s) PO TID 01/21/20 17 02/22/2017 Inactive Chantix Continuing Month Box 1 mg tablet RxNorm: 898746 1 Table t(s) PO BID 12/31/2016 06/01/2017 Inactive Spiriva with HandiHaler 18 mcg and inhalation capsules RxNor m: 532836 INHALE THE ENTIRE CONTENTS OF 1 CAPSULE ONCE A DAY USING HANDIHALER 12/31/201607/2017 Inactive Synthroid 112 mcg tablet RxNorm: 430550 TAKE ONE TABLET BY MOUT H DAILY 12/30/2016 03/01/2017 Inactive metformin ER 500 mg tablet,extended release 24 hr RxNorm: 86 0975 TAKE ONE TABLET BY MOUTH DAILY 12/30/2016 03/01/2017 Inactive Premarin 0.45 mg tablet RxNorm: 330249 TAKE ONE TABLET BY MOUTH DAILY 12/30/2016 03/01/2017 Inactive omeprazole 40 mg capsule,delayed release RxNorm: 895132 TAKE ONE CAPSULE BY MOUTH DAILY 12/30/2016 01/25/2018 Inactive Ventolin HFA 90 mcg/actuation aerosol inhaler RxNorm: 128891 INHALE TWO PUFFS BY MOUTH EVERY 4 HOURS NEEDED 12/28/2016 02/13/2017 Inactive fluoxetine 40 mg capsule RxNorm: 069676 TAKE ONE CAPSULE BY BENOIT TH EVERY MORNING 12/15/2016 04/20/2017 Inactive Chantix Continuing Month Box 1 mg tablet RxNorm: 295257 TAKE ONE TABLET BY MOUTH TWICE A DAY 12/04/2016 12/31/2016 Inactive doxycycline hyclate 100 mg capsule RxNorm: 0053972 1 Capsule(s) PO BID 12/01/2016 12/07/2016 Inactive Levaquin 750 mg tablet RxNorm: 415142 1 Tablet(s) PO QD 12/01/2016 Inactive Abilify 2 mg tablet RxNorm: 859438 TAKE ONE TABLET BY MOUTH DAILY 0 11/25/2016 11/30/2016 Inactive Ventolin HFA 90 mcg/actuation aerosol inhaler RxNorm: 878093 INHALE TWO PUFFS BY MOUTH EVERY 4 HOURS NEEDED 11/02/2016 12/19/2016 Inactive Chantix Continuing Month Box 1 mg tablet RxNorm: 255110 Tablet(s) PO as directed 10/30/2016 12/03/2016 Inactive Symbicort 160 mcg-4.5 mcg/actuation HFA aerosol inhaler RxNo rm: 4028737 INHALE TWO PUFFS TWO TIMES A DAY 10/30/2016 03/30/2017 Inactive Abilify 2 mg tablet RxNorm: 904185 1 Tablet(s) PO QD 10/27/201611/24 Inactive amoxicillin 500 mg capsule RxNorm: 220377 1 Capsule(s) PO TID 10/1410/23/2016 Inactive amoxicillin 500 mg capsule RxNorm: 480552 1 Capsule(s) PO TID 10/1410/13/2016 Inactive Synthroid 112 mcg tablet RxNorm: 441720 TAKE ONE TABLET BY MOUT H DAILY 09/28/2016 12/29/2016 Inactive Topamax 100 mg tablet RxNorm: 152888 TAKE ONE TABLET BY MOUTH EVERY NIGHT AT BEDTIME 09/28/2016 01/28/2017 Inactive Premarin 0.45 mg tablet RxNorm: 447428 TAKE ONE TABLET BY MOUTH DAILY 09/28/2016 12/29/2016 Inactive metformin ER 500 mg tablet,extended release 24 hr RxNorm: 86 0975 TAKE ONE TABLET BY MOUTH DAILY 09/28/2016 12/29/2016 Inactive Ventolin HFA 90 mcg/actuation aerosol inhaler RxNorm: 893280 INHALE TWO PUFFS BY MOUTH EVERY 4 HOURS NEEDED 09/22/2016 10/23/2016 Inactive Pulmicort 1 mg/2 mL suspension for nebulization RxNorm: 6168 19 1 Unit Dose INH BID Dx: COPD (J44.9) 09/10/2016 08/16/2017 Inactive Pulmicort 1 mg/2 mL suspension for nebulization RxNorm: 6168 19 1 Unit Dose INH BID 09/10/2016 09/09/2016 Inactive Brovana 15 mcg/2 mL solution for nebulization RxNorm: 113369 1 Unit Dose INH BID Dx: COPD (J44.9) 09/10/2016 01/25/2018 Inactive Brovana 15 mcg/2 mL solution for nebulization RxNorm: 555433 1 Unit Dose INH BID 09/10/2016 09/09/2016 Inactive ipratropium-albuterol 0.5 mg-3 mg(2.5 mg base)/3 mL ne bulization soln RxNorm: 2468051 1 Unit Dose INH Q4H as needed Dx: COPD (J44.9) 09/10/2016 0 02/12/2019 Inactive orphenadrine citrate ER 100 mg tablet,extended release RxNor m: 921536 1 Tablet(s) PO BID for muscle spasm--replaces methocarbamol 09/09/2016 Inactive Chantix Continuing Month Box 1 mg tablet RxNorm: 611412 Tablet(s) PO as directed 09/09/2016 10/30/2016 Inactive orphenadrine citrate ER 100 mg tablet,extended release RxNor m: 862999 1 Tablet(s) PO BID for muscle spasm 09/09/2016 09/08/2016 Inactive Spiriva with HandiHaler 18 mcg and inhalation capsules RxNor m: 631199 INHALE THE ENTIRE CONTENTS OF 1 CAPSULE ONCE A DAY USING HANDIHALER 09/01/201605/2017 Inactive Daliresp 500 mcg tablet RxNorm: 4750991 1 Tablet(s) PO QD 08/27/2016 03/01/2017 Inactive prednisone 20 mg tablet RxNorm: 677333 3 Tablet(s) PO T ID for 3 days then 1 po BID for 3 days then one daily for 3 days 08/26/2016 04/28/2017 Inactiv e Wellbutrin XL 300 mg 24 hr tablet, extended release RxNorm: 810228 TAKE ONE TABLET BY MOUTH EVERY MORNING 07/29/2016 10/26/2016 Inactive gabapentin 600 mg tablet RxNorm: 872091 1 Tablet(s) PO BID 06/26/20 16 12/22/2016 Inactive fluoxetine 40 mg capsule RxNorm: 085329 TAKE ONE CAPSULE BY BENOIT TH EVERY MORNING 06/24/2016 11/20/2016 Inactive Duragesic 100 mcg/hr transdermal patch RxNorm: 522554 2 Application TD Q48H for pain 06/05/2016 07/04/2016 Inactive oxycodone 10 mg tablet RxNorm: 8978375 1-2 Tablet(s) PO QID as n eeded for pain 06/05/2016 03/17/2017 Inactive Belladonna-Phenobarbital 48 mg tablet,extended release RxNor m: 2 Tablet(s) PO TID 06/05/2016 01/19/2017 Inactive Premarin 0.45 mg tablet RxNorm: 214767 TAKE ONE TABLET BY MOUTH DAILY 05/27/2016 09/23/2016 Inactive Topamax 100 mg tablet RxNorm: 801645 TAKE ONE TABLET BY MOUTH EVERY NIGHT AT BEDTIME 05/27/2016 09/27/2016 Inactive Synthroid 112 mcg tablet RxNorm: 215499 TAKE ONE TABLET BY MOUT H DAILY 05/27/2016 09/23/2016 Inactive metformin ER 500 mg tablet,extended release 24 hr RxNorm: 86 0975 TAKE ONE TABLET BY MOUTH DAILY 05/27/2016 09/23/2016 Inactive Symbicort 160 mcg-4.5 mcg/actuation HFA aerosol inhaler RxNo rm: 3864615 INHALE TWO PUFFS TWO TIMES A DAY 05/27/2016 10/23/2016 Inactive Ventolin HFA 90 mcg/actuation aerosol inhaler RxNorm: 055064 INHALE TWO PUFFS BY MOUTH EVERY 4 HOURS NEEDED 05/21/2016 07/07/2016 Inactive omeprazole 40 mg capsule,delayed release RxNorm: 156577 1 Capsu le(s) PO QD 05/06/2016 08/03/2016 Inactive metformin ER 500 mg tablet,extended release 24 hr RxNorm: 86 0975 TAKE ONE TABLET BY MOUTH DAILY 04/23/2016 05/22/2016 Inactive methocarbamol 750 mg tablet RxNorm: 032301 2 Tablet(s) PO TID as needed for muscle spasm 04/23/2016 09/08/2016 Inactive Synthroid 112 mcg tablet RxNorm: 476885 TAKE ONE TABLET BY MOUT H DAILY 04/23/2016 05/22/2016 Inactive Spiriva with HandiHaler 18 mcg and inhalation capsules RxNor m: 655944 INHALE THE ENTIRE CONTENTS OF 1 CAPSULE ONCE A DAY USING HANDIHALER 04/09/201608/2016 Inactive Diflucan 100 mg tablet RxNorm: 721325 1 Tablet(s) PO QD 04/08/2016 Inactive doxycycline hyclate 100 mg capsule RxNorm: 3783830 1 Capsule(s) PO BID 04/08/2016 04/17/2016 Inactive doxycycline hyclate 100 mg capsule RxNorm: 8320175 1 Capsule(s) PO BID 04/08/2016 04/07/2016 Inactive Diflucan 100 mg tablet RxNorm: 847809 1 Tablet(s) PO QD 04/08/2016 Inactive ondansetron HCl 4 mg tablet RxNorm: 120323 1 Tablet(s) PO Q4H as needed for nausea and vomiting 04/08/2016 09/22/2017 Inactive gabapentin 600 mg tablet RxNorm: 177181 TAKE ONE TABLET BY MOUT H TWICE A DAY 03/24/2016 06/25/2016 Inactive Synthroid 112 mcg tablet RxNorm: 710842 TAKE ONE TABLET BY MOUT H DAILY 02/25/2016 04/22/2016 Inactive Levaquin 500 mg tablet RxNorm: 973850 1 Tablet(s) PO QD 01/23/2016 Inactive prednisone 20 mg tablet RxNorm: 836952 1 Tablet(s) PO T ID for 3 days then 1 po BID for 3 days then one daily for 3 days 01/23/2016 08/25/2016 Inactiv e [employer] Ultra Test strips RxNorm: TEST BLOOD SUGAR ONCE DAILY 250.00 01/09/2016 11/04/2017 Inactive methocarbamol 750 mg tablet RxNorm: 836396 2 Tablet(s) PO TID as needed for muscle spasm 01/09/2016 04/23/2016 Inactive lactulose 10 gram/15 mL oral solution RxNorm: 047236 [address](s) PO QD 01/09/2016 09/22/2017 Inactive TAKE 1 TABLESPOON BY MOUTH ONCE DAILY metformin ER 500 mg tablet,extended release 24 hr RxNorm: 86 0975 1 Tablet(s) PO QD 12/26/2015 04/22/2016 Inactive fluoxetine 20 mg capsule RxNorm: 932701 1 Capsule(s) PO QD 12/23/19 16 06/19/2016 Inactive Premarin 0.45 mg tablet RxNorm: 592679 TAKE ONE TABLET BY MOUTH DAILY 12/23/2015 05/20/2016 Inactive fluoxetine 40 mg capsule RxNorm: 515762 1 Capsule(s) PO QD 12/23/19 16 06/19/2016 Inactive TAKE ONE CAPSULE BY MOUTH EV JANKI MORNING azithromycin 500 mg tablet RxNorm: 750822 1 Tablet(s) PO QD 016 12/19/2015 Inactive Zofran 4 mg tablet RxNorm: 341819 1 Tablet(s) PO Q4H prn nausea /vomiting 12/13/2015 03/30/2018 Inactive azithromycin 500 mg tablet RxNorm: 315197 1 Tablet(s) PO QD 016 12/12/2015 Inactive Duragesic 100 mcg/hr transdermal patch RxNorm: 382869 2 Application TD Q48H for pain 12/09/2015 01/07/2016 Inactive oxycodone 10 mg tablet RxNorm: 3210044 1-2 Tablet(s) PO QID as n eeded for pain 12/09/2015 06/04/2016 Inactive Bactroban 2 % topical cream RxNorm: 874480 Application TOP BID 11/2208/25/2016 Inactive doxycycline hyclate 100 mg capsule RxNorm: 3757067 1 Capsule(s) PO BID 12/03/2015 12/12/2015 Inactive Topamax 100 mg tablet RxNorm: 694323 TAKE ONE TABLET BY MOUTH EVERY NIGHT AT BEDTIME 11/25/2015 05/22/2016 Inactive Symbicort 160 mcg-4.5 mcg/actuation HFA aerosol inhaler RxNo rm: [id number] INHALE TWO PUFFS TWO TIMES A DAY 11/25/2015 05/22/2016 Inactive Synthroid 112 mcg tablet RxNorm: 053416 Tablet(s) TAKE ONE TABLET BY MOUTH DAILY 11/25/2015 02/22/2016 Inactive omeprazole 40 mg capsule,delayed release RxNorm: 893720 1 Capsu le(s) PO QD 11/12/2015 05/05/2016 Inactive oxycodone 10 mg tablet RxNorm: 5682823 1-2 Tablet(s) PO QID as n eeded for pain 11/05/2015 12/08/2015 Inactive Duragesic 100 mcg/hr transdermal patch RxNorm: 230906 2 Application TD Q48H for pain 11/05/2015 12/04/2015 Inactive omeprazole 40 mg capsule,delayed release RxNorm: 481574 1 Capsu le(s) PO QD 10/07/2015 11/11/2015 Inactive Januvia 100 mg tablet RxNorm: 164623 TAKE ONE TABLET BY MOUTH DAILY 09/11/2015 12/25/2015 Inactive Zithromax 500 mg tablet RxNorm: 300679 1 Tablet(s) PO QD 09/10/2015 1 Inactive prednisone 20 mg tablet RxNorm: 213995 1 Tablet(s) PO T ID for 3 days then 1 po BID for 3 days then one daily for 3 days 09/10/2015 08/25/2016 Inactiv e Wellbutrin XL 300 mg 24 hr tablet, extended release RxNorm: 527771 1 Tablet(s) PO QAM 09/10/2015 12/02/2015 Inactive Topamax 100 mg tablet RxNorm: 044096 TAKE ONE TABLET BY MOUTH EVERY NIGHT AT BEDTIME 09/02/2015 11/24/2015 Inactive Synthroid 112 mcg tablet RxNorm: 050550 TAKE ONE TABLET BY MOUT H DAILY 09/02/2015 11/25/2015 Inactive methocarbamol 750 mg tablet RxNorm: 881237 2 Tablet(s) PO TID as needed for muscle spasm 08/15/2015 01/09/2016 Inactive Wellbutrin XL 150 mg 24 hr tablet, extended release RxNorm: 325407 TAKE ONE TABLET BY MOUTH EVERY MORNING 08/13/2015 08/13/2015 Inactive gabapentin 600 mg tablet RxNorm: 239057 1 Tablet(s) PO BID 08/13/20 15 02/08/2016 Inactive Wellbutrin XL 300 mg 24 hr tablet, extended release RxNorm: 076429 1 Tablet(s) PO QAM 08/06/2015 09/09/2015 Inactive Wellbutrin XL 150 mg 24 hr tablet, extended release RxNorm: 851407 1 Tablet(s) PO QAM 07/18/2015 08/05/2015 Inactive prednisone 20 mg tablet RxNorm: 076813 1 Tablet(s) PO BID 07/18/2015 07/22/2015 Inactive doxycycline hyclate 100 mg tablet,delayed release RxNorm: 43 4018 1 Tablet(s) PO BID 07/18/2015 07/27/2015 Inactive pravastatin 40 mg tablet RxNorm: 014191 1 Tablet(s) PO QD NEEDS FASTING LAB 07/15/2015 07/14/2015 Inactive pravastatin 40 mg tablet RxNorm: 739338 1 Tablet(s) PO QD NEEDS FASTING LAB 07/15/2015 01/25/2018 Inactive Ventolin HFA 90 mcg/actuation aerosol inhaler RxNorm: 769453 2 Puff(s) INH Q4H 07/08/2015 07/07/2015 Inactive prn Premarin 0.45 mg tablet RxNorm: 094289 1 Tablet(s) PO QD 07/01/2015 0 12/22/2015 Inactive pravastatin 40 mg tablet RxNorm: 475973 1 Tablet(s) PO QD NEEDS FASTING LAB 06/14/2015 07/15/2015 Inactive Ventolin HFA 90 mcg/actuation aerosol inhaler RxNorm: 1490370 2 Puff(s) INH Q4H 06/06/2015 07/08/2015 Inactive prn albuterol sulfate 2.5 mg/3 mL (0.083 %) solution for n ebulization RxNorm: 498928 1 Unit Dose INH QID 05/30/2015 No Stop Date Active Duragesic 100 mcg/hr transdermal patch RxNorm: 037411 2 Application TD Q48H for pain 04/29/2015 05/28/2015 Inactive gabapentin 600 mg tablet RxNorm: 339245 1 Tablet(s) PO BID 04/11/20 15 08/13/2015 Inactive Onglyza 5 mg tablet RxNorm: 552284 1 Tablet(s) PO QD for blood suga r 04/10/2015 04/15/2015 Inactive [Brand Copay Card: RxBIN:[id number] PCN: RxGRP:[id number] ID#:[id number]] methocarbamol 750 mg tablet RxNorm: 819551 2 Tablet(s) PO TID as needed for muscle spasm 03/28/2015 08/15/2015 Inactive pravastatin 40 mg tablet RxNorm: 357945 1 Tablet(s) PO QD 03/19/2015 03/18/2015 Inactive pravastatin 40 mg tablet RxNorm: 360176 1 Tablet(s) PO QD 03/19/2015 06/14/2015 Inactive lactulose 10 gram/15 mL oral solution RxNorm: 727603 [address](s) PO QD 03/07/2015 01/09/2016 Inactive TAKE 1 TABLESPOON BY MOUTH ONCE DAILY oxycodone 20 mg tablet RxNorm: 2794314 1 Tablet(s) PO QID as nee ded for pain 03/05/2015 07/08/2015 Inactive Topamax 100 mg tablet RxNorm: 828978 1 Tablet(s) PO QHS TAKE ONE TABLET BY MOUTH AT BEDTIME 02/25/2015 02/12/2019 Inactive metformin ER 500 mg tablet,extended release 24 hr RxNorm: 86 0975 1 Tablet(s) PO QD 02/11/2015 03/04/2015 Inactive take one tablet by mouth every day Daliresp 500 mcg tablet RxNorm: 8643861 1 Tablet(s) PO QD 02/11/2015 08/09/2015 Inactive Endocet 10 mg-325 mg tablet RxNorm: 2473095 1 Tablet(s) PO Q4H as needed for pain 01/23/2015 01/23/2015 Inactive gabapentin 600 mg tablet RxNorm: 849749 1 Tablet(s) PO BID 01/23/20 15 04/11/2015 Inactive methocarbamol 750 mg tablet RxNorm: 362287 2 Tablet(s) PO TID as needed for muscle spasm 01/15/2015 02/13/2015 Inactive fluoxetine 40 mg capsule RxNorm: 387667 1 Capsule(s) PO QD 01/14/20 15 12/23/2015 Inactive TAKE ONE CAPSULE BY MOUTH EV JANKI MORNING fluoxetine 20 mg capsule RxNorm: 873255 1 Capsule(s) PO QD 01/14/20 15 12/23/2015 Inactive Premarin 0.45 mg tablet RxNorm: 082171 1 Tablet(s) PO QD 01/02/2015 0 07/01/2015 Inactive Endocet 10 mg-325 mg tablet RxNorm: 8474559 1-2 Tablet(s) PO Q4H 02/12/2019 Inactive PRN PAIN Duragesic 100 mcg/hr transdermal patch RxNorm: 866452 2 Application TD Q48H for pain 12/25/2014 01/23/2015 Inactive Topamax 100 mg tablet RxNorm: 084234 1 Tablet(s) PO QHS TAKE ONE TABLET BY MOUTH AT BEDTIME 12/25/2014 02/24/2015 Inactive Tudorza Pressair 400 mcg/actuation breath activated RxNorm: 7049155 1 BID INHALE ONE PUFF INTO LUNGS TWO TIMES A DAY 12/17/2014 05/15/2015 Inactive Endocet 10 mg-325 mg tablet RxNorm: 6273298 1-2 Tablet(s) PO Q4H 12/19/2014 Inactive PRN PAIN Duragesic 100 mcg/hr transdermal patch RxNorm: 099495 2 Application TD Q48H for pain 11/20/2014 12/24/2014 Inactive Churn LabsTouch Ultra Test strips RxNorm: TEST BLOOD SUGAR ONCE DAILY 250.00 11/16/2014 01/08/2016 Inactive omeprazole 40 mg capsule,delayed release RxNorm: 793924 1 Capsu le(s) PO QD 11/13/2014 11/12/2015 Inactive metformin ER 500 mg tablet,extended release 24 hr RxNorm: 86 0975 1 Tablet(s) PO QD 11/12/2014 02/11/2015 Inactive take one tablet by mouth every day Symbicort 160 mcg-4.5 mcg/actuation HFA aerosol inhaler RxNo rm: 9470202 2 Puff(s) INH BID 11/12/2014 03/11/2015 Inactive INHALE 2 PUFFS O RALLY TWO TIMES A DAY gabapentin 800 mg tablet RxNorm: 140196 1 Tablet(s) PO QD TAKE ONE TABLET BY MOUTH ONCE A DAY 10/22/2014 01/01/2015 Inactive Endocet 10 mg-325 mg tablet RxNorm: 9832825 1-2 Tablet(s) PO Q4H 11/15/2014 Inactive PRN PAIN Duragesic 100 mcg/hr transdermal patch RxNorm: 015959 2 Application TD Q48H for pain 10/17/2014 11/19/2014 Inactive gabapentin 800 mg tablet RxNorm: 347514 1 Tablet(s) PO QD TAKE ONE TABLET BY MOUTH ONCE A DAY 10/04/2014 10/21/2014 Inactive Premarin 0.9 mg tablet RxNorm: 254599 1 Tablet(s) PO QD TAKE ONE TABLET BY MOUTH ONCE A DAY 10/04/2014 01/01/2015 Inactive Spiriva with HandiHaler 18 mcg & inhalation capsules RxNorm: 698133 1 Capsule(s) INH QD 10/03/2014 04/30/2015 Inactive Levaquin 500 mg tablet RxNorm: 752491 1 Tablet(s) PO QD 10/03/2014 Inactive prednisone 20 mg tablet RxNorm: 542003 1 Tablet(s) PO QD 10/03/2014 1 12/09/2013 Inactive Duragesic 100 mcg/hr transdermal patch RxNorm: 403312 2 Application TD Q48H for pain 09/18/2014 10/16/2014 Inactive Endocet 10 mg-325 mg tablet RxNorm: 0250165 1-2 Tablet(s) PO Q4H 10/16/2014 Inactive PRN PAIN Synthroid 112 mcg tablet RxNorm: 343817 1 Tablet(s) QD 09/10/2014 Inactive Synthroid 112 mcg tablet RxNorm: 043655 TAKE ONE TABLET BY MOUTH ONE TIME A DAY. NEEDS LABS 09/10/2014 02/06/2015 Inactive omeprazole 40 mg capsule,delayed release RxNorm: 667513 1 Capsu le(s) PO QD 09/03/2014 11/13/2014 Inactive omeprazole 40 mg capsule,delayed release RxNorm: 959764 1 Capsu le(s) PO QD 09/03/2014 09/02/2014 Inactive Spiriva with HandiHaler 18 mcg & inhalation capsules RxNorm: 892481 1 Capsule(s) INH QD 08/27/2014 10/02/2014 Inactive gabapentin 600 mg tablet RxNorm: 282436 1 Tablet(s) PO BID 08/27/20 14 10/22/2014 Inactive Endocet 10 mg-325 mg tablet RxNorm: 6795612 1-2 Tablet(s) PO Q4H 09/17/2014 Inactive PRN PAIN fentanyl 100 mcg/hr transdermal patch RxNorm: 365214 1 Unit Dos e TD QD 08/21/2014 09/19/2014 Inactive Daliresp 500 mcg tablet RxNorm: 8216524 1 Tablet(s) PO QD 08/13/2014 02/11/2015 Inactive Synthroid 112 mcg tablet RxNorm: 681708 TAKE ONE TABLET BY MOUTH ONE TIME A DAY. NEEDS LABS 08/10/2014 09/10/2014 Inactive Endocet 10 mg-325 mg tablet RxNorm: 4898688 1-2 Tablet(s) PO Q4H 08/17/2014 Inactive PRN PAIN Duragesic 100 mcg/hr transdermal patch RxNorm: 069745 2 Application TD Q48H for pain 07/19/2014 09/17/2014 Inactive fluoxetine 40 mg capsule RxNorm: 713512 1 Capsule(s) PO QD 07/17/20 14 01/14/2015 Inactive TAKE ONE CAPSULE BY MOUTH EV JANKI MORNING fluoxetine 20 mg capsule RxNorm: 745780 1 Capsule(s) PO QD 07/17/20 14 01/14/2015 Inactive Spiriva with HandiHaler 18 mcg & inhalation capsules RxNorm: 492260 1 Capsule(s) INH QD 07/17/2014 08/26/2014 Inactive INHALE CONTENTS OF 1 CAPSULE(S) WITH HANDIHALER ONCE DAILY Zofran 4 mg tablet RxNorm: 191154 1 Tablet(s) PO Q4H prn nausea 07/25/2014 Inactive Synthroid 112 mcg tablet RxNorm: 422964 1 Tablet(s) PO QD 07/09/2014 07/09/2014 Inactive methocarbamol 750 mg tablet RxNorm: 969382 2 Tablet(s) PO TID as needed for muscle spasm 07/09/2014 09/06/2014 Inactive Synthroid 112 mcg tablet RxNorm: 200070 1 Tablet(s) PO QD - [facility] labs 07/09/2014 08/07/2014 Inactive Medrol (Aníbal) 4 mg tablets in a dose pack RxNorm: 696166 6 Tablet(s) PO QD --then as directed 07/03/2014 07/08/2014 Inactive Tudorza Pressair 400 mcg/actuation breath activated RxNorm: 6845128 1 Puff(s) INH BID 07/03/2014 12/17/2014 Inactive cefdinir 300 mg capsule RxNorm: 004826 1 Capsule(s) PO BID 07/03/20 14 07/12/2014 Inactive Topamax 100 mg tablet RxNorm: 723061 Tablet(s) TAKE ONE TABLET BY MOUTH AT BEDTIME 07/02/2014 02/25/2015 Inactive Duragesic 100 mcg/hr transdermal patch RxNorm: 181368 2 Application TD Q48H for pain 06/25/2014 07/18/2014 Inactive Endocet 10 mg-325 mg tablet RxNorm: 0392153 1-2 Tablet(s) PO Q4H 07/18/2014 Inactive PRN PAIN metformin ER 500 mg tablet,extended release 24 hr RxNorm: 86 0975 1 Tablet(s) PO QD Needs labs 06/18/2014 07/01/2014 Inactive take one tablet by mouth every day Duragesic 100 mcg/hr transdermal patch RxNorm: 342790 2 Application TD Q48H for pain 05/22/2014 06/24/2014 Inactive Synthroid 112 mcg tablet RxNorm: 887268 1 Tablet(s) PO QD 05/22/2014 07/09/2014 Inactive Endocet 10 mg-325 mg tablet RxNorm: 7571900 1-2 Tablet(s) PO Q4H 06/20/2014 Inactive PRN PAIN Endocet 10 mg-325 mg tablet RxNorm: 8701168 1-2 Tablet(s) PO Q4H 05/21/2014 Inactive PRN PAIN Duragesic 100 mcg/hr transdermal patch RxNorm: 727705 2 Application TD Q48H for pain 04/25/2014 05/21/2014 Inactive Daliresp 500 mcg tablet RxNorm: 5896769 1 Tablet(s) PO QD 04/24/2014 08/13/2014 Inactive Symbicort 160 mcg-4.5 mcg/actuation HFA aerosol inhaler RxNo rm: 7090959 2 Puff(s) INH BID 04/24/2014 08/21/2014 Inactive INHALE 2 PUFFS O RALLY TWO TIMES A DAY metformin ER 500 mg tablet,extended release 24 hr RxNorm: 86 0975 1 Tablet(s) PO QD 04/24/2014 11/12/2014 Inactive TAKE ONE TABLET BY MOUTH EVERY DAY [AttnRPh:Saving Apply/Adjudicate RxGRP:LDMGRP RxBIN:[id number] RxPCN:2012 PCode:01 ID#:[id number]] Symbicort 160 mcg-4.5 mcg/actuation HFA aerosol inhaler RxNo rm: 6059174 2 Puff(s) INH BID 04/24/2014 11/12/2014 Inactive INHALE 2 PUFFS O RALLY TWO TIMES A DAY Premarin 0.9 mg tablet RxNorm: 251060 1 Tablet(s) PO QD 04/24/2014 Inactive TAKE ONE TABLET BY MOUTH EVERY DAY metformin ER 500 mg tablet,extended release 24 hr RxNorm: 86 0975 1 Tablet(s) PO QD Needs labs 04/24/2014 06/18/2014 Inactive TAKE ONE TABLET BY MOUTH EVERY DAY [AttnRPh:Saving Apply/Adjudicate RxGRP:LDMGRP RxBIN:[id number] RxPCN:2012 PCode:01 ID#:[id number]] gabapentin 800 mg tablet RxNorm: 940691 1 Tablet(s) PO QD 04/24/2014 10/04/2014 Inactive TAKE ONE TABLET BY MOUTH EVERY DAY Topamax 100 mg tablet RxNorm: 209140 1 Tablet(s) PO QHS 04/17/2014 Inactive Topamax 100 mg tablet RxNorm: 635727 TAKE ONE TABLET BY MOUTH A T BEDTIME 04/17/2014 07/01/2014 Inactive Tudorza Pressair 400 mcg/actuation breath activated RxNorm: 8799809 1 Puff(s) INH BID 04/11/2014 07/02/2014 Inactive Duragesic 100 mcg/hr transdermal patch RxNorm: 403489 2 Application TD Q48H for pain 03/27/2014 04/24/2014 Inactive Endocet 10 mg-325 mg tablet RxNorm: 6081059 1-2 Tablet(s) PO Q4H 04/24/2014 Inactive PRN PAIN Robaxin 750 mg tablet RxNorm: 020673 2 Tablet(s) PO TID as need ed for spasm 02/23/2014 03/28/2015 Inactive Duragesic 100 mcg/hr transdermal patch RxNorm: 707733 2 Application TD Q48H for pain 02/23/2014 No Stop Date Active Endocet 10 mg-325 mg tablet RxNorm: 6236651 1-2 Tablet(s) PO Q4H 03/23/2014 Inactive PRN PAIN Synthroid 112 mcg tablet RxNorm: 402290 1 Tablet(s) PO QD TAKE ONE TABLET BY MOUTH EVERY DAY 02/15/2014 05/22/2014 Inactive Zithromax 500 mg tablet RxNorm: 184104 1 Tablet(s) PO QD 01/30/2014 0 02/05/2014 Inactive Diflucan 100 mg tablet RxNorm: 947036 1 Tablet(s) PO QD 01/30/2014 Inactive prednisone 20 mg tablet RxNorm: 955441 1 Tablet(s) PO BID 01/30/2014 02/05/2014 Inactive fluoxetine 40 mg capsule RxNorm: 675853 1 Capsule(s) PO QD 01/23/20 14 07/16/2014 Inactive TAKE ONE CAPSULE BY MOUTH EV JANKI MORNING fluoxetine 40 mg capsule RxNorm: 789897 1 Capsule(s) PO QD 01/23/20 14 07/17/2014 Inactive TAKE ONE CAPSULE BY MOUTH EV JANKI MORNING cefdinir 300 mg capsule RxNorm: 159641 1 Capsule(s) PO BID 01/16/20 14 01/29/2014 Inactive Zithromax 500 mg tablet RxNorm: 879046 1 Tablet(s) PO QD 01/16/2014 0 01/22/2014 Inactive prednisone 20 mg tablet RxNorm: 383255 1 Tablet(s) PO BID 01/16/2014 01/22/2014 Inactive Spiriva with HandiHaler 18 mcg and inhalation capsules RxNor m: 846916 1 Capsule(s) INH QD 12/18/2013 07/17/2014 Inactive INHALE CONTENT S OF 1 CAPSULE(S) WITH HANDIHALER ONCE DAILY fluoxetine 20 mg capsule RxNorm: 751355 1 Capsule(s) PO QD 12/18/19 14 06/15/2014 Inactive Spiriva with HandiHaler 18 mcg & inhalation capsules RxNorm: 511130 1 Capsule(s) INH QD 12/18/2013 06/15/2014 Inactive INHALE CONTENTS OF 1 CAPSULE(S) WITH HANDIHALER ONCE DAILY fluoxetine 20 mg capsule RxNorm: 869163 1 Capsule(s) PO QD 12/18/19 14 07/17/2014 Inactive cefdinir 300 mg capsule RxNorm: 007711 2 Capsule(s) PO QD 12/12/2013 12/21/2013 Inactive Duragesic 100 mcg/hr transdermal patch RxNorm: 777044 2 Application TD Q48H for pain 12/08/2013 12/07/2013 Inactive Topamax 100 mg tablet RxNorm: 990627 1 Tablet(s) PO QHS 12/04/2013 Inactive Endocet 10 mg-325 mg tablet RxNorm: 5754754 1-2 Tablet(s) PO Q4H 12/26/2013 Inactive PRN PAIN Robaxin 750 mg tablet RxNorm: 666496 2 Tablet(s) PO TID as need ed for spasm 11/07/2013 01/05/2014 Inactive gabapentin 800 mg tablet RxNorm: 399665 1 Tablet(s) PO QD 10/16/2013 04/24/2014 Inactive TAKE ONE TABLET BY MOUTH EVERY DAY Symbicort 160 mcg-4.5 mcg/actuation HFA aerosol inhaler RxNo rm: 8054052 2 Puff(s) INH BID 10/16/2013 04/24/2014 Inactive INHALE 2 PUFFS O RALLY TWO TIMES A DAY Premarin 0.9 mg tablet RxNorm: 456811 1 Tablet(s) PO QD 10/16/2013 Inactive TAKE ONE TABLET BY MOUTH EVERY DAY metformin ER 500 mg tablet,extended release 24 hr RxNorm: 86 0975 1 Tablet(s) PO QD 10/16/2013 04/24/2014 Inactive TAKE ONE TABLET BY MOUTH EVERY DAY Daliresp 500 mcg tablet RxNorm: 0398660 1 Tablet(s) PO QD 10/16/2013 04/24/2014 Inactive Robaxin 750 mg tablet RxNorm: 836223 2 Tablet(s) PO TID as need ed for spasm 10/10/2013 11/06/2013 Inactive Duragesic 100 mcg/hr transdermal patch RxNorm: 396190 2 Application TD Q48H for pain 10/09/2013 No Stop Date Active Soma 350 mg tablet RxNorm: 037993 1 Tablet(s) PO TID 09/27/201310/09 Inactive TAKE ONE TABLET BY MOUTH THREE TIMES A D AY lactulose 10 gram/15 mL oral solution RxNorm: 178522 [address]s) PO QD 09/13/2013 03/07/2015 Inactive TAKE 1 TABLESPOON BY MOUTH ONCE DAILY Duragesic 100 mcg/hr transdermal patch RxNorm: 978169 2 Application TD Q48H for pain 09/06/2013 No Stop Date Active Endocet 10 mg-325 mg tablet RxNorm: 5447237 1-2 Tablet(s) PO Q4H 09/27/2013 Inactive PRN PAIN lancets 28 gauge RxNorm: Miscellaneous As needed for blo od glucose sticks 08/24/2013 No Stop Date Active 16.2 mg-0.1037 mg-0.0194 mg tablet RxNorm: 6278035 Tablet(s) PO PRN for gas and cramping 08/24/2013 01/19/2017 Inactive TAKE TWO TABLET S BY MOUTH THREE TIMES A DAY NEEDED FOR GAS AND CRAMPING Topamax 100 mg tablet RxNorm: 652685 1 Tablet(s) PO QHS 07/31/2013 Inactive Diflucan 100 mg tablet RxNorm: 169555 1 Tablet(s) PO QD 07/27/2013 Inactive cefdinir 300 mg capsule RxNorm: 684848 1 Capsule(s) PO BID 07/26/20 13 08/08/2013 Inactive Daliresp 500 mcg tablet RxNorm: 9643309 1 Tablet(s) PO QD 07/25/2013 10/15/2013 Inactive fluoxetine 40 mg capsule RxNorm: 675044 1 Capsule(s) PO QD 07/25/20 13 01/22/2014 Inactive TAKE ONE CAPSULE BY MOUTH EV JANKI MORNING Senokot-S 8.6 mg-50 mg tablet RxNorm: 9489242 1 Tablet(s) PO BID 10/25/2013 Inactive doxycycline hyclate 100 mg capsule RxNorm: 6361332 1 Capsule(s) PO BID 06/28/2013 07/07/2013 Inactive prednisone 20 mg tablet RxNorm: 546553 1 Tablet(s) PO BID 06/28/2013 07/04/2013 Inactive Zofran 4 mg tablet RxNorm: 325854 1 Tablet(s) PO Q4H prn nausea 03/201307/05/2013 Inactive Spiriva with HandiHaler 18 mcg & inhalation capsules RxNorm: 104720 1 Capsule(s) INH QD 06/26/2013 12/18/2013 Inactive INHALE CONTENTS OF 1 CAPSULE(S) WITH HANDIHALER ONCE DAILY Synthroid 112 mcg tablet RxNorm: 720240 1 Tablet(s) PO QD TAKE ONE TABLET BY MOUTH EVERY DAY 06/19/2013 02/15/2014 Inactive fluoxetine 20 mg capsule RxNorm: 392174 1 Capsule(s) PO QD 06/19/20 13 12/18/2013 Inactive Ventolin HFA 90 mcg/actuation Aerosol Inhaler RxNorm: 9615813 2 Puff(s) INH Q4H 06/05/2013 No Stop Date Active prn Soma 350 mg tablet RxNorm: 985215 1 Tablet(s) PO TID 06/05/201307/04 Inactive TAKE ONE TABLET BY MOUTH THREE TIMES A D AY prednisone 20 mg tablet RxNorm: 988455 1 Tablet(s) PO QD 05/31/2013 0 06/06/2013 Inactive Topamax 100 mg tablet RxNorm: 478758 1 Tablet(s) PO QHS 05/22/2013 Inactive Levaquin 500 mg tablet RxNorm: 628549 1 Tablet(s) PO QD 05/03/2013 Inactive Diflucan 100 mg tablet RxNorm: 758613 1 Tablet(s) PO QD 05/03/2013 Inactive Daliresp 500 mcg tablet RxNorm: 9304442 1 Tablet(s) PO QD 05/01/2013 07/24/2013 Inactive Daliresp 500 mcg tablet RxNorm: 9824846 1 Tablet(s) PO QD 05/01/2013 04/30/2013 Inactive gabapentin 800 mg tablet RxNorm: 720100 1 Tablet(s) PO QD 04/10/2013 10/06/2013 Inactive TAKE ONE TABLET BY MOUTH EVERY DAY metformin ER 500 mg tablet,extended release 24 hr RxNorm: 86 0977 1 Tablet(s) PO QD 04/10/2013 10/06/2013 Inactive TAKE ONE TABLET BY MOUTH EVERY DAY Premarin 0.9 mg tablet RxNorm: 027742 1 Tablet(s) PO QD 04/10/2013 Inactive TAKE ONE TABLET BY MOUTH EVERY DAY Symbicort 160 mcg-4.5 mcg/actuation HFA aerosol inhaler RxNo rm: 2477102 2 Puff(s) INH BID 04/10/2013 10/06/2013 Inactive INHALE 2 PUFFS O RALLY TWO TIMES A DAY Synthroid 112 mcg tablet RxNorm: 823212 1 Tablet(s) PO QD TAKE ONE TABLET BY MOUTH EVERY DAY 04/10/2013 06/18/2013 Inactive Ventolin HFA 90 mcg/actuation Aerosol Inhaler RxNorm: 986210 2 Puff(s) INH Q4H 04/10/2013 No Stop Date Active prn fentanyl 100 mcg/hr transdermal patch RxNorm: 765953 1 Unit Dos e TD QD 04/03/2013 05/02/2013 Inactive Endocet 10 mg-325 mg tablet RxNorm: 6995691 1-2 Tablet(s) PO Q4H 05/02/2013 Inactive PRN PAIN Topamax 100 mg tablet RxNorm: 562568 1 Tablet(s) PO QHS 03/13/2013 Inactive Reglan 10 mg tablet RxNorm: 912689 1 Tablet(s) PO QID b efore meals and at bedtime 03/13/2013 04/09/2015 Inactive fluoxetine 20 mg capsule RxNorm: 811881 1 Capsule(s) PO QD 02/28/20 13 05/27/2013 Inactive Ventolin HFA 90 mcg/actuation Aerosol Inhaler RxNorm: 017048 2 Puff(s) INH Q4H 02/13/2013 No Stop Date Active prn fluoxetine 40 mg capsule RxNorm: 899092 1 Capsule(s) PO QD 01/31/20 13 07/24/2013 Inactive TAKE ONE CAPSULE BY MOUTH EV JANKI MORNING Soma 350 mg tablet RxNorm: 348103 1 Tablet(s) PO TID 01/20/201302/18 Inactive TAKE ONE TABLET BY MOUTH THREE TIMES A D AY Endocet 10 mg-325 mg tablet RxNorm: 8509997 1-2 Tablet(s) PO Q4H 02/06/2013 Inactive PRN PAIN MS Contin 200 mg tablet,extended release RxNorm: 309619 1 Table t(s) PO BID 01/18/2013 02/06/2013 Inactive Ventolin HFA 90 mcg/actuation Aerosol Inhaler RxNorm: 794573 2 Puff(s) INH Q4H 01/04/2013 No Stop Date Active prn Spiriva with HandiHaler 18 mcg & inhalation capsules RxNorm: 851229 1 Capsule(s) INH QD 12/29/2012 06/25/2013 Inactive INHALE CONTENTS OF 1 CAPSULE(S) WITH HANDIHALER ONCE DAILY Spiriva with HandiHaler 18 mcg & inhalation capsules RxNorm: 554353 1 Capsule(s) INH QD 12/26/2012 12/28/2012 Inactive INHALE CONTENTS OF 1 CAPSULE(S) WITH HANDIHALER ONCE DAILY Synthroid 112 mcg tablet RxNorm: 573769 Tablet(s) PO TA KE ONE TABLET BY MOUTH EVERY DAY 12/26/2012 04/09/2013 Inactive Endocet 10 mg-325 mg tablet RxNorm: 5967535 1-2 Tablet(s) PO Q4H 01/17/2013 Inactive PRN PAIN MS Contin 200 mg tablet,extended release RxNorm: 580291 1 Table t(s) PO BID 12/21/2012 01/17/2013 Inactive fluoxetine 20 mg capsule RxNorm: 685856 1 Capsule(s) PO QD 12/06/19 13 02/26/2013 Inactive Synthroid 112 mcg tablet RxNorm: 791770 1 Tablet(s) PO QD 12/06/2012 02/12/2019 Inactive TAKE ONE TABLET BY MOUTH EVERY DAY Ventolin HFA 90 mcg/actuation Aerosol Inhaler RxNorm: 044711 2 Puff(s) INH Q4H 12/06/2012 No Stop Date Active prn Reglan 10 mg tablet RxNorm: 415871 1 Tablet(s) PO QID b efore meals and at bedtime 11/24/2012 03/12/2013 Inactive Topamax 100 mg tablet RxNorm: 427759 1 Tablet(s) PO QHS 11/16/2012 Inactive Ventolin HFA 90 mcg/actuation Aerosol Inhaler RxNorm: 288727 2 Puff(s) INH Q4H 11/09/2012 No Stop Date Active prn gabapentin 800 mg tablet RxNorm: 565535 1 Tablet(s) PO QD 10/27/2012 04/09/2013 Inactive TAKE ONE TABLET BY MOUTH EVERY DAY metformin ER 500 mg tablet,extended release 24 hr RxNorm: 86 0977 1 Tablet(s) PO QD 10/27/2012 04/09/2013 Inactive TAKE ONE TABLET BY MOUTH EVERY DAY Symbicort 160 mcg-4.5 mcg/actuation HFA Aerosol Inhaler RxNo rm: 9479515 2 Puff(s) INH BID 10/27/2012 04/09/2013 Inactive INHALE 2 PUFFS O RALLY TWO TIMES A DAY Premarin 0.9 mg tablet RxNorm: 811850 1 Tablet(s) PO QD 10/27/2012 Inactive TAKE ONE TABLET BY MOUTH EVERY DAY Endocet 10 mg-325 mg tablet RxNorm: 0171365 1-2 Tablet(s) PO Q4H 11/24/2012 Inactive PRN PAIN MS Contin 200 mg tablet,extended release RxNorm: 884539 1 Table t(s) PO BID 10/26/2012 11/24/2012 Inactive Soma 350 mg tablet RxNorm: 104078 1 Tablet(s) PO TID 10/04/201211/02 Inactive TAKE ONE TABLET BY MOUTH THREE TIMES A D AY Ventolin HFA 90 mcg/actuation Aerosol Inhaler RxNorm: 687086 2 Puff(s) INH Q4H 10/03/2012 No Stop Date Active prn Daliresp 500 mcg tablet RxNorm: 4722289 1 Tablet(s) PO QD 09/28/2012 09/27/2012 Inactive Daliresp 500 mcg tablet RxNorm: 6817608 1 Tablet(s) PO QD 09/28/2012 04/25/2013 Inactive fluoxetine 20 mg capsule RxNorm: 456012 1 Capsule(s) PO QD 09/05/20 12 12/06/2012 Inactive Topamax 50 mg tablet RxNorm: 879629 Tablet(s) PO for 1w k then 1 po q HS for 1wk then 2 po q HS 08/29/2012 09/27/2012 Inactive TAKE 1/2 TABLET BY MOUTH AT BEDTIME FOR 1 WEEK, THEN 1 TABLET AT BEDTIME FOR 1 WEEK, THEN 2 TABLETS AT BEDTIME Topamax 100 mg tablet RxNorm: 717787 1 Tablet(s) PO QHS 08/29/2012 Inactive Ventolin HFA 90 mcg/actuation Aerosol Inhaler RxNorm: 807118 2 Puff(s) INH Q4H 08/19/2012 No Stop Date Active prn Ventolin HFA 90 mcg/actuation Aerosol Inhaler RxNorm: 531363 2 Puff(s) INH Q4H 08/15/2012 No Stop Date Active prn Synthroid 112 mcg tablet RxNorm: 285236 1 Tablet(s) PO QD 08/10/2012 11/07/2012 Inactive TAKE ONE TABLET BY MOUTH EVERY DAY Synthroid 112 mcg tablet RxNorm: 654194 1 Tablet(s) PO QD 08/01/2012 08/09/2012 Inactive TAKE ONE TABLET BY MOUTH EVERY DAY Reglan 10 mg tablet RxNorm: 042862 1 Tablet(s) PO QID b efore meals and at bedtime 08/01/2012 11/23/2012 Inactive fluoxetine 40 mg capsule RxNorm: 956795 1 Capsule(s) PO QD 08/01/2001/27/2013 Inactive TAKE ONE CAPSULE BY MOUTH EV JANKI MORNING Ventolin HFA 90 mcg/actuation Aerosol Inhaler RxNorm: 561847 2 Puff(s) INH Q4H 08/01/2012 No Stop Date Active prn Soma 350 mg tablet RxNorm: 657785 1 Tablet(s) PO TID 07/20/201208/18 Inactive TAKE ONE TABLET BY MOUTH THREE TIMES A D AY Spiriva with HandiHaler 18 mcg & inhalation capsules RxNorm: 908027 1 Capsule(s) INH 07/01/2012 12/25/2012 Inactive INHALE CONTENTS OF 1 CAPSULE(S) WITH HANDIHALER ONCE DAILY Zithromax 250 mg Tab RxNorm: 576881 2 Tablet(s) PO QD 06/28/201206/22 Inactive MS Contin 200 mg tablet,extended release RxNorm: 484849 1 Table t(s) PO BID 06/28/2012 07/27/2012 Inactive Endocet 10 mg-325 mg tablet RxNorm: 8389508 1-2 Tablet(s) PO Q4H 07/27/2012 Inactive PRN PAIN Topamax 100 mg tablet RxNorm: 610608 1 Tablet(s) PO QHS 06/28/2012 Inactive 16.2 mg-0.1037 mg-0.0194 mg tablet RxNorm: 0797863 Tablet(s) PO PRN for gas and cramping 06/08/2012 08/23/2013 Inactive TAKE TWO TABLET S BY MOUTH THREE TIMES A DAY NEEDED FOR GAS AND CRAMPING Ventolin HFA 90 mcg/actuation Aerosol Inhaler RxNorm: 334137 2 Puff(s) INH Q4H 05/23/2012 No Stop Date Active prn Ventolin HFA 90 mcg/actuation Aerosol Inhaler RxNorm: 035330 2 Puff(s) INH Q4H 05/11/2012 No Stop Date Active prn Synthroid 112 mcg tablet RxNorm: 908628 1 Tablet(s) PO QD 05/09/2012 07/31/2012 Inactive TAKE ONE TABLET BY MOUTH EVERY DAY gabapentin 800 mg tablet RxNorm: 784468 1 Tablet(s) PO QD 05/09/2012 10/26/2012 Inactive TAKE ONE TABLET BY MOUTH EVERY DAY fluoxetine 40 mg capsule RxNorm: 441177 1 Capsule(s) PO QD 05/09/2007/31/2012 Inactive TAKE ONE CAPSULE BY MOUTH EV JANKI MORNING metformin ER 500 mg tablet,extended release 24 hr RxNorm: 86 0977 1 Tablet(s) PO QD 05/09/2012 10/26/2012 Inactive TAKE ONE TABLET BY MOUTH EVERY DAY Premarin 0.9 mg tablet RxNorm: 526037 1 Tablet(s) PO QD 05/09/2012 Inactive TAKE ONE TABLET BY MOUTH EVERY DAY Symbicort 160 mcg-4.5 mcg/actuation HFA Aerosol Inhaler RxNo rm: 5035158 2 Puff(s) INH BID 05/09/2012 10/26/2012 Inactive INHALE 2 PUFFS O RALLY TWO TIMES A DAY Endocet 10 mg-325 mg Tab RxNorm: 9701487 1-2 Tablet(s) PO Q4H 04/2705/26/2012 Inactive PRN PAIN MS Contin 200 mg Tab RxNorm: 195594 1 Tablet(s) PO BID 04/26/201202/2012 Inactive Ventolin HFA 90 mcg/actuation Aerosol Inhaler RxNorm: 381006 2 Puff(s) INH Q4H 04/25/2012 05/10/2012 Inactive prn Soma 350 mg tablet RxNorm: 835452 2 Tablet(s) PO TID 04/19/201207/19 Inactive TAKE ONE TABLET BY MOUTH THREE TIMES A D AY Ventolin HFA 90 mcg/actuation Aerosol Inhaler RxNorm: 494523 2 Puff(s) INH Q4H 04/12/2012 04/24/2012 Inactive prn Reglan 10 mg tablet RxNorm: 822864 1 Tablet(s) PO QID b efore meals and at bedtime 04/11/2012 07/31/2012 Inactive MS Contin 200 mg Tab RxNorm: 240220 1 Tablet(s) PO BID 03/30/201202/2012 Inactive Endocet 10 mg-325 mg Tab RxNorm: 5921849 1-2 Tablet(s) PO Q4H 03/3004/26/2012 Inactive PRN PAIN MS Contin 200 mg Tab RxNorm: 073388 1 Tablet(s) PO BID 03/02/201206/2012 Inactive Endocet 10 mg-325 mg Tab RxNorm: 9122056 1-2 Tablet(s) PO Q4H 03/0203/29/2012 Inactive PRN PAIN Daliresp 500 mcg tablet RxNorm: 2169206 1 Tablet(s) PO QD 03/01/2012 09/28/2012 Inactive MS Contin 200 mg Tab RxNorm: 278072 1 Tablet(s) PO BID 02/02/201208/2012 Inactive Endocet 10 mg-325 mg Tab RxNorm: 7176170 1-2 Tablet(s) PO Q4H 02/0103/01/2012 Inactive PRN PAIN fluoxetine 40 mg capsule RxNorm: 342752 1 Capsule(s) PO QD 02/02/2008/01/2012 Inactive TAKE ONE CAPSULE BY MOUTH EV JANKI MORNING Synthroid 112 mcg Tab RxNorm: 542013 1 Tablet(s) PO QD 01/18/2012 Inactive TAKE ONE TABLET BY MOUTH EVERY DAY lactulose 10 gram/15 mL oral solution RxNorm: 476692 [address](s) PO QD 01/18/2012 No Stop Date Active TAKE 1 TABLESPOON BY MOUTH ONCE DAILY Ventolin HFA 90 mcg/actuation Aerosol Inhaler RxNorm: 930982 2 Puff(s) INH Q4H 01/18/2012 04/11/2012 Inactive prn MS Contin 200 mg Tab RxNorm: 569267 1 Tablet(s) PO BID 01/05/201210/2012 Inactive Endocet 10 mg-325 mg Tab RxNorm: 3995686 1-2 Tablet(s) PO Q4H 01/0502/01/2012 Inactive PRN PAIN ProAir HFA 90 mcg/Actuation Aerosol Inhaler RxNorm: 398137 2 Pu ff(s) INH Q4H 12/21/2011 No Stop Date Active prn for wheezing or shortness of breath Spiriva with HandiHaler 18 mcg & inhalation Caps RxNorm: 580 261 1 Capsule(s) INH 12/21/2011 06/30/2012 Inactive INHALE CONTENTS OF 1 CAPSULE(S) WITH HANDIHALER ONCE DAILY Reglan 10 mg Tab RxNorm: 252464 1 Tablet(s) PO QID before meals and at bedtime 12/21/2011 04/10/2012 Inactive Synthroid 112 mcg Tab RxNorm: 395895 1 Tablet(s) PO QD 12/21/2011 Inactive TAKE ONE TABLET BY MOUTH EVERY DAY Endocet 10 mg-325 mg Tab RxNorm: 7572020 1-2 Tablet(s) PO Q4H 11/2512/24/2011 Inactive PRN PAIN MS Contin 200 mg Tab RxNorm: 806997 1 Tablet(s) PO BID 11/25/201112/2011 Inactive lactulose 10 gram/15 mL Oral Soln RxNorm: 046957 Milliliter(s) PO 1 No Stop Date Active TAKE 1 TABLESPOON BY MOUTH O NCE DAILY lactulose 10 gram/15 mL Oral Soln RxNorm: 549047 Milliliter(s) PO 1 12/12/2010 11/20/2011 Inactive TAKE 1 TABLESPOON BY MOUTH O NCE DAILY Premarin 0.9 mg Tab RxNorm: 444019 1 Tablet(s) PO QD 10/12/201105/08 Inactive TAKE ONE TABLET BY MOUTH EVERY DAY fluoxetine 20 mg capsule RxNorm: 089052 1 Capsule(s) PO QD 10/12/2009/05/2012 Inactive TAKE ONE CAPSULE BY MOUTH EV JANKI DAY Synthroid 112 mcg Tab RxNorm: 105108 1 Tablet(s) PO QD 10/12/2011 Inactive TAKE ONE TABLET BY MOUTH EVERY DAY metformin ER 500 mg 24 hr Tab RxNorm: 735131 1 Tablet(s) PO QD 09/2311/10/2011 Inactive TAKE ONE TABLET BY MOUTH GLYNN RY DAY Synthroid 112 mcg Tab RxNorm: 315584 1 Tablet(s) PO QD 10/12/2011 Inactive TAKE ONE TABLET BY MOUTH EVERY DAY metformin ER 500 mg 24 hr Tab RxNorm: 208404 1 Tablet(s) PO QD 09/2310/11/2011 Inactive TAKE ONE TABLET BY MOUTH GLYNN RY DAY Prevacid 30 mg Cap RxNorm: 344590 Capsule(s) PO 10/12/2011 01/25/2012 Inactive TAKE ONE CAPSULE BY MOUTH EVERY DAY Symbicort 160 mcg-4.5 mcg/actuation HFA Aerosol Inhaler RxNo rm: 6869746 2 Puff(s) INH BID 10/12/2011 05/08/2012 Inactive INHALE 2 PUFFS O RALLY TWO TIMES A DAY gabapentin 800 mg Tab RxNorm: 688338 1 Tablet(s) PO QD 10/12/2011 Inactive TAKE ONE TABLET BY MOUTH EVERY DAY MS Contin 200 mg Tab RxNorm: 830757 1 Tablet(s) PO BID 09/23/201111/2010 Inactive Endocet 10 mg-325 mg Tab RxNorm: 5966768 1-2 Tablet(s) PO Q4H 09/2310/22/2011 Inactive PRN PAIN Endocet 10 mg-325 mg Tab RxNorm: 8390637 1-2 Tablet(s) PO Q4H 08/2109/19/2011 Inactive PRN PAIN MS Contin 200 mg Tab RxNorm: 294396 1 Tablet(s) PO BID 08/21/2011 Inactive Diflucan 100 mg Tab RxNorm: 431826 1 Tablet(s) PO QD 08/10/201108/16 Inactive cefdinir 300 mg Cap RxNorm: 156120 2 Capsule(s) PO QD 08/10/201107/24 Inactive Reglan 10 mg Tab RxNorm: 472006 1 Tablet(s) PO AC & HS 07/15/2011 Inactive Endocet 10 mg-325 mg Tab RxNorm: 3836802 1-2 Tablet(s) PO Q4H 07/1508/13/2011 Inactive PRN PAIN One Touch Ultra Test strips RxNorm: Miscellaneous BID 06/11/201101/16/2014 Inactive TEST TWO TIMES A DAY lactulose 10 gram/15 mL Oral Soln RxNorm: 068371 Milliliter(s) PO 0 06/10/2011 10/11/2011 Inactive TAKE 1 TABLESPOON BY MOUTH O NCE DAILY Chantix Continuing Month Aníbal 1 mg Tab RxNorm: 201840 Tablet(s) PO 0 06/10/2011 11/02/2011 Inactive TAKE DIRECTED - PER PACK[employer] GE INSTRUCTIONS fluoxetine 40 mg Cap RxNorm: 854185 Capsule(s) PO 06/10/2011 02/02/20 12 Inactive TAKE ONE CAPSULE BY MOUTH EVERY MORNING Chantix Continuing Month Aníbal 1 mg Tab RxNorm: 626221 Ta blet(s) PO TAKE DIRECTED - PER PACKAGE INSTRUCTIONS 05/13/2011 06/09/2011 Inactive Soma 350 mg Tab RxNorm: 402637 Tablet(s) PO TAKE ON E TABLET BY MOUTH THREE TIMES A DAY 05/13/2011 04/18/2012 Inactive Chantix Continuing Month Aníbal 1 mg Tab RxNorm: 866213 Ta blet(s) PO as directed per package instructions. 04/22/2011 05/12/2011 Inactive Symbicort 160 mcg-4.5 mcg/Actuation HFA Aerosol Inhaler RxNo rm: 0476846 HFA Aerosol Inhaler INH INHALE 2 PUFFS ORALLY TWO TIMES A DAY 04/13/2011 Inactive Synthroid 112 mcg Tab RxNorm: 125078 Tablet(s) PO TAKE ONE TABLET BY MOUTH EVERY DAY 04/13/2011 10/12/2011 Inactive Premarin 0.9 mg Tab RxNorm: 429465 Tablet(s) PO TAKE ON E TABLET BY MOUTH EVERY DAY 04/13/2011 10/12/2011 Inactive gabapentin 800 mg Tab RxNorm: 407262 Tablet(s) PO TAKE ONE TABLET BY MOUTH EVERY DAY 04/13/2011 10/12/2011 Inactive Prevacid 30 mg Cap RxNorm: 167076 1 Capsule(s) PO QD 04/13/201110/11 Inactive Spiriva with HandiHaler 18 mcg & inhalation Caps RxNorm: 580 261 Capsule(s) INH INHALE CONTENTS OF 1 CAPSULE(S) WITH HANDIHALER ONCE DAILY 04/13/2011 12/21/2011 Inactive metformin ER 500 mg 24 hr Tab RxNorm: 711371 Tablet(s) PO TAKE ONE TABLET BY MOUTH EVERY DAY 04/13/2011 10/12/2011 Inactive Soma 350 mg Tab RxNorm: 464623 1 Tablet(s) PO QID 03/30/2011 02/13/20 19 Inactive fluoxetine 20 mg Cap RxNorm: 875554 Capsule(s) PO TAKE ONE CAPSULE BY MOUTH EVERY DAY 03/25/2011 10/12/2011 Inactive cefdinir 300 mg Cap RxNorm: 579163 2 Capsule(s) PO QD 03/19/201105/2011 Inactive 16.2 mg-0.1037 mg-0.0194 mg Tab RxNorm: 1169203 2 Tablet(s) PO TID PRN for gas and cramping 03/16/2011 07/13/2011 Inactive Soma 350 mg Tab RxNorm: 460083 2 Tablet(s) PO TID 03/16/2011 03/29/20 11 Inactive Chantix Starting Month Aníbal 0.5 mg (11)-1 mg (3x14) Tab s in a Dose Pack RxNorm: 128104 Tablet(s) PO as directed 03/02/2011 No Stop Date Active diazepam 10 mg Tab RxNorm: 303172 1 Tablet(s) PO BID 02/10/201101/19 Inactive Zofran 4 mg tablet RxNorm: 173315 1 Tablet(s) PO Q4H prn nausea 02/16/2011 Inactive Diflucan 100 mg Tab RxNorm: 798723 1 Tablet(s) PO QD 01/18/201101/24 Inactive Premarin 0.625 mg/g Vaginal Cream RxNorm: 539400 VAG In sert 1gm vaginally at bedtime 3 times weekly 01/18/2011 02/12/2019 Inactive loratadine 10 mg Tab RxNorm: 3731229 1 Tablet(s) PO QD 12/17/201003/2012 Inactive Spiriva with HandiHaler 18 mcg & inhalation Caps RxNorm: 580 261 1 Capsule(s) INH QD 12/17/2010 04/12/2011 Inactive Diflucan 100 mg Tab RxNorm: 332714 1 Tablet(s) PO QD 12/17/201012/23 Inactive diazepam 10 mg Tab RxNorm: 790524 1 Tablet(s) PO BID and PRN 201002/12/2019 Inactive One Touch Ultra Test Strips RxNorm: InVt BID Zainab t blood sugar at least twice daily. 11/11/2010 06/11/2011 Inactive fluoxetine 40 mg Cap RxNorm: 626111 1 Capsule(s) PO QAM 11/11/2010 Inactive diazepam 10 mg Tab RxNorm: 406669 1 Tablet(s) PO BID and PRN 200911/12/2010 Inactive Bactrim DS 800 mg-160 mg Tab RxNorm: 965733 1 Tablet(s) PO BID 09/2210/15/2010 Inactive fluoxetine 20 mg Cap RxNorm: 242635 1 Capsule(s) PO QD 10/02/201008/2011 Inactive Bactrim DS 800 mg-160 mg Tab RxNorm: 194178 1 Tablet(s) PO BID 01/201010/03/2010 Inactive Zofran 4 mg Tab RxNorm: 296522 1 Tablet(s) PO Q4H prn nausea 200910/16/2010 Inactive 16.2 mg-0.1037 mg-0.0194 mg Tab RxNorm: 3953491 2 Tablet(s) PO TID PRN for gas and cramping 09/17/2010 10/21/2010 Inactive Gabapentin 800 mg Tab RxNorm: 151394 1 Tablet(s) PO QD 09/16/2010 Inactive ProAir HFA 90 mcg/Actuation Aerosol Inhaler RxNorm: 213324 2 Puff(s) INH Q4H prn shortness of breath 09/15/2010 12/13/2010 Inactive gabapentin 800 mg Tab RxNorm: 213159 1 Tablet(s) PO QD 09/15/2010 Inactive Prevacid 30 mg Cap RxNorm: 692229 1 Capsule(s) PO QD 09/15/201004/12 Inactive loratadine 10 mg Tab RxNorm: 8847335 1 Tablet(s) PO QD 09/15/2010 Inactive Premarin 0.9 mg Tab RxNorm: 420911 1 Tablet(s) PO QD 09/15/201004/12 Inactive Synthroid 112 mcg Tab RxNorm: 222741 1 Tablet(s) PO QD 09/15/2010 Inactive metformin ER 500 mg 24 hr Tab RxNorm: 373446 1 Tablet(s) PO QD 08/2304/12/2011 Inactive Symbicort 160 mcg-4.5 mcg/Actuation Inhalation HFA Aer osol Inhaler RxNorm: 9419695 2 Puff(s) INH BID 09/15/2010 04/12/2011 Inactive diazepam 10 mg Tab RxNorm: 611489 1 Tablet(s) PO BID and PRN 200910/13/2010 Inactive Phentermine 37.5 mg Cap RxNorm: 933292 1 Capsule(s) PO QD 09/02/2010 11/02/2011 Inactive ProAir HFA 90 mcg/Actuation Aerosol Inhaler RxNorm: 781351 2 Puff(s) INH Q4H prn shortness of breath 08/07/2010 No Stop Date Active Premarin 0.9 mg Tab RxNorm: 082945 1 Tablet(s) PO QD 08/07/201009/14 Inactive Loratadine 10 mg Tab RxNorm: 5083011 1 Tablet(s) PO QD 08/07/2010 Inactive Lactulose 10 gram/15 mL Oral Soln RxNorm: 537669 1 Unit Dose PO QD 08/07/2010 02/12/2019 Inactive Zofran 4 mg Tab RxNorm: 876498 1 Tablet(s) PO Q4H prn nausea 2009 No Stop Date Active Gabapentin 800 mg Tab RxNorm: 322441 1 Tablet(s) PO QD 08/07/2010 Inactive Synthroid 112 mcg Tab RxNorm: 379722 1 Tablet(s) PO QD 08/07/2010 Inactive Metformin ER 500 mg 24 hr Tab RxNorm: 464126 1 Tablet(s) PO QD 07/2309/14/2010 Inactive Vitamin D 1,000 unit Tab RxNorm: 843502 1 Tablet(s) PO TID 08/07/20 10 02/12/2019 Inactive Symbicort 160 mcg-4.5 mcg/Actuation Inhalation HFA Aer osol Inhaler RxNorm: 7408071 2 Puff(s) INH BID 08/07/2010 09/14/2010 Inactive Prevacid 30 mg Cap RxNorm: 715653 1 Capsule(s) PO QD 08/07/201009/14 Inactive Metformin ER 500 mg 24 hr Tab RxNorm: 042304 1 Tablet(s) PO QD 06/2308/06/2010 Inactive Vitamin D 1,000 unit Tab RxNorm: 825543 1 Tablet(s) PO TID 07/14/20 10 08/06/2010 Inactive Synthroid 112 mcg Tab RxNorm: 329370 1 Tablet(s) PO QD 07/14/2010 Inactive Lactulose 10 gram/15 mL Oral Soln RxNorm: 963605 1 Unit Dose PO QD 07/14/2010 08/06/2010 Inactive Levaquin 500 mg Tab RxNorm: 460576 1 Tablet(s) PO QD 07/14/201007/27 Inactive Premarin 0.9 mg Tab RxNorm: 792270 1 Tablet(s) PO QD 07/14/201008/06 Inactive ProAir HFA 90 mcg/Actuation Aerosol Inhaler RxNorm: 548685 2 Puff(s) INH Q4H prn shortness of breath 07/14/2010 No Stop Date Active Prevacid 30 mg Cap RxNorm: 290665 1 Capsule(s) PO QD 07/14/201008/06 Inactive Zofran 4 mg Tab RxNorm: 466576 1 Tablet(s) PO Q4H prn nausea 2009 No Stop Date Active Symbicort 160 mcg-4.5 mcg/Actuation Inhalation HFA Aer osol Inhaler RxNorm: 3123565 2 Puff(s) INH BID 07/14/2010 08/06/2010 Inactive Loratadine 10 mg Tab RxNorm: 2966674 1 Tablet(s) PO QD 07/14/2010 Inactive Gabapentin 800 mg Tab RxNorm: 061222 1 Tablet(s) PO QD 07/14/2010 Inactive Metformin ER 500 mg 24 hr Tab RxNorm: 476110 1 Tablet(s) PO 010 07/13/2010 Inactive Diazepam 10 mg Tab RxNorm: 039278 1 Tablet(s) PO BID and PRN 200909/06/2010 Inactive Premarin 0.9 mg Tab RxNorm: 392683 1 Tablet(s) PO QD 06/09/201007/13 Inactive Zofran 4 mg Tab RxNorm: 607601 1 Tablet(s) PO Q4H prn nausea 2009 No Stop Date Active ProAir HFA 90 mcg/Actuation Aerosol Inhaler RxNorm: 400552 2 Puff(s) INH Q4H prn shortness of breath 06/09/2010 No Stop Date Active Gabapentin 800 mg Tab RxNorm: 405554 1 Tablet(s) PO QD 06/09/2010 Inactive Loratadine 10 mg Tab RxNorm: 8197241 1 Tablet(s) PO QD 06/09/2010 Inactive Lactulose 10 gram/15 mL Oral Soln RxNorm: 432990 1 Unit Dose PO QD 06/09/2010 07/13/2010 Inactive Prevacid 30 mg Cap RxNorm: 180124 1 Capsule(s) PO QD 06/09/201007/13 Inactive Synthroid 112 mcg Tab RxNorm: 691141 1 Tablet(s) PO QD 06/09/2010 Inactive Symbicort 160 mcg-4.5 mcg/Actuation Inhalation HFA Aer osol Inhaler RxNorm: 2146265 2 Puff(s) INH BID 06/09/2010 07/13/2010 Inactive Omnicef 300 mg Cap RxNorm: 703657 2 Capsule(s) PO QD 05/07/201005/20 Inactive Metformin 500 mg Tab RxNorm: 464749 1 Tablet(s) PO QD 05/06/201005/22 Inactive ProAir HFA 90 mcg/Actuation Aerosol Inhaler RxNorm: 794275 2 Puff(s) INH Q4H prn shortness of breath 05/06/2010 No Stop Date Active lactulose 10 gram/15 mL Oral Soln RxNorm: 997860 1 Unit Dose PO QD 05/06/2010 06/10/2011 Inactive Loratadine 10 mg Tab RxNorm: 6325362 1 Tablet(s) PO QD 05/06/2010 Inactive Synthroid 112 mcg Tab RxNorm: 091365 1 Tablet(s) PO QD 05/06/2010 Inactive Symbicort 160 mcg-4.5 mcg/Actuation Inhalation HFA Aer osol Inhaler RxNorm: 1417448 2 Puff(s) INH BID 05/06/2010 06/08/2010 Inactive Gabapentin 800 mg Tab RxNorm: 202089 1 Tablet(s) PO QD 05/06/2010 Inactive 16.2 mg-0.1037 mg-0.0194 mg Tab RxNorm: 8328079 2 Tablet(s) PO TID PRN for gas and cramping 05/06/2010 05/12/2010 Inactive Zofran 4 mg Tab RxNorm: 924530 1 Tablet(s) PO Q4H prn nausea 200904/13/2010 Inactive MS Contin 60 mg tablet,extended release RxNorm: 574467 3 Tablet (s) PO BID 04/09/2010 05/08/2010 Inactive Soma 350 mg Tab RxNorm: 228728 2 Tablet(s) PO TID 04/09/2010 05/08/20 10 Inactive Symbicort 160 mcg-4.5 mcg/Actuation Inhalation HFA Aer osol Inhaler RxNorm: 1393393 2 Puff(s) INH BID 04/08/2010 05/05/2010 Inactive Doxycycline 100 mg Cap RxNorm: 2450225 1 Capsule(s) PO BID 04/08/20 10 04/17/2010 Inactive Triamterene-Hydrochlorothiazide 37.5 mg-25 mg Cap RxNorm: 19 8316 1 Capsule(s) PO QAM 04/08/2010 09/04/2010 Inactive fluoxetine 40 mg Cap RxNorm: 394567 1 Capsule(s) PO QAM 04/08/2010 Inactive Morphine SR 120 mg multiphase 24 hr Cap RxNorm: 900096 1 Capsul e(s) PO 03/11/2010 04/07/2010 Inactive Endocet 10 mg-325 mg Tab RxNorm: 3201377 1-2 Tablet(s) PO Q4H AL N PAIN 03/11/2010 04/09/2010 Inactive Savella 100 mg Tab RxNorm: 609739 1 Tablet(s) PO BID 03/10/201004/09 Inactive Soma 350 mg Tab RxNorm: 739671 1 Tablet(s) PO TID prn spasm 010 04/09/2010 Inactive Savella 100 mg Tab RxNorm: 137360 1 Tablet(s) PO BID 02/03/201004/09 Inactive Aspirin 81 mg Tab RxNorm: 545985 1 Tablet(s) PO QD No Start Date Active Zyrtec 10 mg Tab RxNorm: 6147834 1 Tablet(s) PO QD No Start Date Active One Touch Ultra Test Strips RxNorm: Misc test at least t wice daily. No Start Date Active coenzyme Q10 200 mg capsule RxNorm: 922189 1 Capsule(s) PO QD No Star t Date Active One Touch Ultra Test Strips RxNorm: InVt BID Zainab t blood sugar at least twice daily. No Start Date 11/10/2010 Inactive Gabapentin 800 mg Tab RxNorm: 535135 1 Tablet(s) PO QD No Start Date 05/05/2010 Inactive Abilify 5 mg tablet RxNorm: 698213 1 Tablet(s) PO QD No Start Date Inactive Chantix 1 mg Tab RxNorm: 577070 1 Tablet(s) PO BID No Start Date 10/22 Inactive Ozempic 0.25 mg or 0.5 mg (2 mg/1.5 mL) subcutaneous p en injector RxNorm: 7205751 .25 Milligram(s) SQ QW No Start Date 07/04/2019 Inactive lancets 28 gauge RxNorm: Miscellaneous As needed for blo od glucose sticks No Start Date 08/23/2013 Inactive potassium chloride ER 20 mEq tablet,extended release RxNorm: 607086 2 Tablet(s) PO QD No Start Date 09/26/2018 Inactive Ventolin HFA 90 mcg/actuation Aerosol Inhaler RxNorm: 108169 2 Puff(s) INH Q4H prn No Start Date 01/17/2012 Inactive potassium chloride ER 20 mEq tablet,extended release RxNorm: 872641 2 Tablet(s) PO QD No Start Date 10/19/2018 Inactive Januvia 100 mg tablet RxNorm: 273582 1 Tablet(s) PO QD No Start Date 09/10/2015 Inactive Medrol (Aníbal) 4 mg Tabs in a Dose Pack RxNorm: 233534 Tablet(s) PO N o Start Date 08/09/2011 Inactive as directed Zithromax Z-Aníbal 250 mg Tab RxNorm: 440005 Tablet(s) PO No Start Date 01/25/2012 Inactive as directed vitamin B6-vitamin E-magnesium tablet RxNorm: 1 Tablet(s ) PO QHS with INH No Start Date 03/30/2018 Inactive prednisone 20 mg Tab RxNorm: 641462 1 Tablet(s) PO TID for 1wk then 1 po BID for 1wk No Start Date 01/25/2012 Inactive furosemide 40 mg tablet RxNorm: 791528 1 Tablet(s) PO QAM No Start Date 10/09/2018 Inactive Vitamin D3 1000 units Capsule RxNorm: 1 Capsule(s) PO TID No S tart Date 03/19/2015 Inactive Zofran 4 mg Tab RxNorm: 327343 1 Tablet(s) PO Q4H prn nausea No Sta rt Date 04/13/2010 Inactive Premarin 0.625 mg/g Vaginal Cream RxNorm: 335181 1 Gram (s) VAG QHS 3 times a week No Start Date 09/22/2017 Inactive oxycodone 10 mg tablet RxNorm: 5663895 1-2 Tablet(s) PO QID as n eeded for pain No Start Date 11/04/2015 Inactive Nicoderm CQ 21 mg/24 hr daily Patch RxNorm: 354138 1 Applicatio n TD QD No Start Date 08/05/2015 Inactive Topamax 50 mg tablet RxNorm: 360163 1/2 Tablet(s) PO QH S for 1wk then 1 po q HS for 1wk then 2 po q HS No Start Date 06/27/2012 Inactive Chantix Starting Month Aníbal 0.5 mg (11)-1 mg (3x14) Tab s in a Dose Pack RxNorm: 609049 Tablet(s) PO as directed No Start Date 03/01/2011 Inactive Trulicity 0.75 mg/0.5 mL subcutaneous pen injector RxNorm: 1 547053 Milliliter(s) SQ No Start Date 07/04/2019 Inactive Medrol (Aníbal) 4 mg Tabs in a Dose Pack RxNorm: 576786 Tablet(s) PO N o Start Date 01/25/2012 Inactive as directed Duragesic 100 mcg/hr Transderm Patch RxNorm: 767076 2 A pplication TD Q48H for pain No Start Date 09/05/2013 Inactive Premarin 0.9 mg Tab RxNorm: 924419 1 Tablet(s) PO QD No Start Date Inactive Zithromax Z-Aníbal 250 mg Tab RxNorm: 622508 Tablet(s) PO as direc chinmay No Start Date 01/25/2012 Inactive ondansetron 8 mg disintegrating tablet RxNorm: 090626 1 Tablet(s) PO Q6H as needed No Start Date 10/10/2018 Inactive oxycodone 15 mg tablet RxNorm: 5016579 1 Tablet(s) PO QID as nee ded for pain No Start Date 03/05/2019 Inactive ProAir HFA 90 mcg/Actuation Aerosol Inhaler RxNorm: 128514 2 Puff(s) INH Q4H prn for wheezing or shortness of breath No Start Date 12/21/2011 Inactive pravastatin 40 mg tablet RxNorm: 743868 1/2 Tablet(s) PO QOD No Sta rt Date 04/09/2015 Inactive ipratropium-albuterol 0.5 mg-3 mg(2.5 mg base)/3 mL ne bulization soln RxNorm: 6348605 1 Unit Dose INH Q4H as needed No Start Date 09/09/2016 Inactive furosemide 40 mg tablet RxNorm: 772740 1 Tablet(s) PO QAM as ne eded No Start Date 09/24/2019 Inactive Vitamin D2 oral RxNorm: 4018 oral No Start Date 03/18/2015 Inacti ve pravastatin 40 mg tablet RxNorm: 047545 1/2 Tablet(s) PO QD No Star t Date 04/09/2015 Inactive ondansetron HCl 4 mg tablet RxNorm: 150236 1 Tablet(s) PO Q4H as needed for nausea and vomiting No Start Date 04/07/2016 Inactive furosemide 40 mg tablet RxNorm: 346430 2 Tablet(s) PO QAM No Start Date 09/26/2018 Inactive gabapentin 800 mg tablet RxNorm: 993462 1/2 Tablet(s) PO BID No Sta rt Date 06/21/2017 Inactive gabapentin 800 mg tablet RxNorm: 885249 1/2 Tablet(s) PO BID No Sta rt Date 07/05/2017 Inactive ProAir HFA 90 mcg/Actuation Aerosol Inhaler RxNorm: 170512 2 Puff(s) INH Q4H prn shortness of breath No Start Date 05/05/2010 Inactive scopolamine 1 mg over 3 days transdermal patch RxNorm: 55387 2 1 Application TD behind ear. Take off after three days No Start Date 10/10/2018 Inactive Metformin 500 mg Tab RxNorm: 952443 1 Tablet(s) PO QD No Start Date 0 05/05/2010 Inactive MS Contin 200 mg Tab RxNorm: 315126 1 Tablet(s) PO BID No Start Date 08/20/2011 Inactive Belladonna-Phenobarbital 48 mg tablet,extended release RxNor m: 2 Tablet(s) PO TID No Start Date 06/04/2016 Inactive Synthroid 112 mcg Tab RxNorm: 159736 1 Tablet(s) PO QD No Start Date 05/05/2010 Inactive Zegerid 40 mg-1.1 gram Cap RxNorm: 656394 1 Capsule(s) PO QD No Sta rt Date 01/25/2012 Inactive Premarin 0.625 mg/g Vaginal Cream RxNorm: 981226 VAG In sert 1gm vaginally at bedtime 3 times weekly No Start Date 01/17/2011 Inactive potassium chloride ER 20 mEq tablet,extended release RxNorm: 594031 1 Tablet(s) PO QD No Start Date 04/24/2019 Inactive methocarbamol 750 mg tablet RxNorm: 851798 2 Tablet(s) PO TID as needed for muscle spasm No Start Date 07/08/2014 Inactive Biaxin XL Aníbal 500 mg 24 hr Tab RxNorm: 400915 Tablet(s) PO as d irected No Start Date 04/24/2013 Inactive Vitamin D3 1,000 unit tablet RxNorm: 889284 3 Tablet(s) PO QD No St art Date 06/01/2017 Inactive Morphine SR 120 mg multiphase 24 hr Cap RxNorm: 663283 1 Capsul e(s) PO BID No Start Date 04/09/2010 Inactive Silvadene 1 % topical cream RxNorm: 111388 1 Application TOP BI D to burn area No Start Date 01/31/2017 Inactive Prednisone 20 mg Tab RxNorm: 437336 1 Tablet(s) PO TID for 3days then BID for 4days No Start Date 01/25/2012 Inactive gabapentin 600 mg tablet RxNorm: 237426 1 Tablet(s) PO BID No Start Date 01/21/2015 Inactive topiramate 50 mg tablet RxNorm: 655020 1 Tablet(s) PO QHS No Start Date 03/30/2018 Inactive Januvia 100 mg tablet RxNorm: 356553 1/2 Tablet(s) PO QD No Start D ate 12/25/2015 Inactive Diazepam 10 mg Tab RxNorm: 495543 1 Tablet(s) PO BID and PRN No Sta rt Date 06/08/2010 Inactive Medication Administered No Medication Administered data Immunizations Vaccine Codes Date Status Influenza CVX: 141 09/28/2012 Pneumovax Unknown 09/28/2012 Influenza (Adult) CVX: 141 09/02/2010 Results No Results data Procedures Procedure Codes Date THER/PROPH/DIAG INJ SC/IM CPT-4: 23916 07/10/2019 METHYLPREDNISOLONE INJECTION CPT-4: J2930 07/10/2019 URINALYSIS NONAUTO W/O SCOPE CPT-4: 12718 09/06/2018 URINE CULTURE/ COLONY COUNT CPT-4: 40966 09/06/2018 DRAIN/INJECT JOINT/BURSA CPT-4: 18622 04/29/2017 TRIAMCINOLONE ACET INJ NOS CPT-4: J3301 04/29/2017 DEXAMETHASONE SODIUM PHOS CPT-4: J1100 04/29/2017 INFLUENZA ASSAY W/OPTIC CPT-4: 23116 12/01/2016 RESPIRATORY CULTURE & STAIN CPT-4: 55013 07/09/2016 TB INTRADERMAL TEST CPT-4: 29083 04/21/2016 DRAIN/INJECT JOINT/BURSA CPT-4: 81651 11/07/2013 METHYLPREDNISOLONE 40 MG INJ CPT-4: J1030 11/07/2013 TRIAMCINOLONE ACET INJ NOS CPT-4: J3301 11/07/2013 DRAIN/INJECT JOINT/BURSA CPT-4: 60541 08/08/2013 METHYLPREDNISOLONE 40 MG INJ CPT-4: J1030 08/08/2013 TRIAMCINOLONE ACET INJ NOS CPT-4: J3301 08/08/2013 FLU VACCINE 3 YRS & > IM UP 64 CPT-4: 79401 2 PNEUMOCOCCAL VACC 23 ADITYA IM CPT-4: 37537 09/28/2012 IMMUNIZATION ADMIN CPT-4: 53776 09/28/2012 IMMUNIZATION ADMIN EACH ADD CPT-4: 60489 09/28/2012 FLU VACCINE 3 YRS & > IM UP 64 CPT-4: 92062 0 IMMUNIZATION ADMIN CPT-4: 98968 09/02/2010 METHYLPREDNISOLONE INJECTION CPT-4: J2930 05/07/2010 THER/PROPH/DIAG INJ SC/IM CPT-4: 98513 05/07/2010 Vital Signs Date Vital 04/24/2020 Blood Pressure 1: 126/82 Code: 8480-6 Heart Rate 1: 88 bpm Respiratory Rate: 22 bpm SpO2: 95% Temperature: 36.7 (C) / 98.1 (F) We ight: 197 lbs 11/29/2019 Blood Pressure 1: 126/70 Code: 8480-6 Heart Rate 1: 124 bpm Respiratory Rate: 28 bpm SpO2: 95% Temperature: 36.5 (C) / 97.7 (F) We ight: 190 lbs 10/30/2019 Blood Pressure 1: 132/78 Code: 8480-6 Heart Rate 1: 112 bpm Respiratory Rate: 24 bpm SpO2: 96% Temperature: 36.8 (C) / 98.2 (F) 10/25/2019 Blood Pressure 1: 126/82 Code: 8480-6 Heart Rate 1: 84 bpm Respiratory Rate: 22 bpm SpO2: 97% Temperature: 36.8 (C) / 98.3 (F) We ight: 186 lbs 07/26/2019 Blood Pressure 1: 144/70 Code: 8480-6 Heart Rate 1: 84 bpm Respiratory Rate: 22 bpm SpO2: 96% Temperature: 36.8 (C) / 98.2 (F) We ight: 172 lbs 07/19/2019 Blood Pressure 1: 126/68 Code: 8480-6 Heart Rate 1: 108 bpm Respiratory Rate: 26 bpm SpO2: 93% Temperature: 36.3 (C) / 97.4 (F) We ight: 176 lbs 07/10/2019 Blood Pressure 1: 136/82 Code: 8480-6 Heart Rate 1: 92 bpm Respiratory Rate: 20 bpm SpO2: 97% Temperature: 36.9 (C) / 98.5 (F) We ight: 169 lbs 06/05/2019 Blood Pressure 1: 126/82 Code: 8480-6 Heart Rate 1: 84 bpm Respiratory Rate: 20 bpm SpO2: 98% Temperature: 36.6 (C) / 97.9 (F) We ight: 168 lbs 05/03/2019 Blood Pressure 1: 134/78 Code: 8480-6 Heart Rate 1: 92 bpm Respiratory Rate: 24 bpm SpO2: 98% Temperature: 36.9 (C) / 98.4 (F) We ight: 174 lbs 04/11/2019 Blood Pressure 1: 134/82 Code: 8480-6 Heart Rate 1: 88 bpm Respiratory Rate: 20 bpm SpO2: 98% Temperature: 36.9 (C) / 98.4 (F) We ight: 178 lbs 03/16/2019 Blood Pressure 1: 160/70 Code: 8480-6 Heart Rate 1: 92 bpm Respiratory Rate: 24 bpm SpO2: 93% Temperature: 36.8 (C) / 98.2 (F) We ight: 170 lbs 02/13/2019 Blood Pressure 1: 122/78 Code: 8480-6 BMI: 29.5 Code: 09995-4 Heart Rate 1: 76 bpm Height: 5'4" Respiratory Rate: 20 bpm SpO2: 96% Tempera ture: 37.0 (C) / 98.6 (F) Weight: 172 lbs 01/25/2019 Blood Pressure 1: 132/80 Code: 8480-6 BMI: 29.7 Code: 00935-3 Heart Rate 1: 84 bpm Height: 5'4" Respiratory Rate: 22 bpm SpO2: 98% Tempera ture: 36.9 (C) / 98.4 (F) Weight: 173 lbs 01/03/2019 Blood Pressure 1: 116/70 Code: 8480-6 BMI: 29.5 Code: 63514-1 Heart Rate 1: 92 bpm Height: 5'4" Respiratory Rate: 24 bpm SpO2: 98% Tempera ture: 37.2 (C) / 98.9 (F) Weight: 172 lbs 11/21/2018 Blood Pressure 1: 146/82 Code: 8480-6 BMI: 28.2 Code: 47361-8 Heart Rate 1: 88 bpm Height: 5'4" Respiratory Rate: 22 bpm SpO2: 97% Tempera ture: 36.9 (C) / 98.4 (F) Weight: 164 lbs 10/27/2018 Blood Pressure 1: 122/70 Code: 8480-6 BMI: 27.6 Code: 53074-1 Heart Rate 1: 88 bpm Height: 5'4" Respiratory Rate: 20 bpm SpO2: 96% Tempera ture: 36.8 (C) / 98.3 (F) Weight: 161 lbs 10/18/2018 Blood Pressure 1: 126/70 Code: 8480-6 BMI: 28.3 Code: 30689-1 Heart Rate 1: 76 bpm Height: 5'4" Respiratory Rate: 20 bpm SpO2: 95% Tempera ture: 37.0 (C) / 98.6 (F) Weight: 165 lbs 09/27/2018 Blood Pressure 1: 124/78 Code: 8480-6 BMI: 27.1 Code: 32128-4 Heart Rate 1: 88 bpm Height: 5'4" Respiratory Rate: 20 bpm SpO2: 98% Tempera ture: 36.4 (C) / 97.6 (F) Weight: 158 lbs 09/14/2018 Blood Pressure 1: 140/72 Code: 8480-6 BMI: 26.1 Code: 00801-5 Heart Rate 1: 100 bpm Height: 5'4" Respiratory Rate: 20 bpm SpO2: 97% Tempera ture: 36.9 (C) / 98.4 (F) Weight: 152 lbs 09/06/2018 Blood Pressure 1: 156/82 Code: 8480-6 BMI: 26.3 Code: 65038-8 Heart Rate 1: 100 bpm Height: 5'4" Respiratory Rate: 28 bpm SpO2: 95% Tempera ture: 37.2 (C) / 98.9 (F) Weight: 153 lbs 08/16/2018 Blood Pressure 1: 130/78 Code: 8480-6 Heart Rate 1: 87 bpm Respiratory Rate: 24 bpm SpO2: 94% Temperature: 36.9 (C) / 98.4 (F) We ight: 147 lbs 8 oz 07/07/2018 Blood Pressure 1: 116/78 Code: 8480-6 BMI: 22.7 Code: 06611-2 Heart Rate 1: 88 bpm Height: 5'4" Respiratory Rate: 22 bpm SpO2: 98% Tempera ture: 36.5 (C) / 97.7 (F) Weight: 132 lbs 05/31/2018 Blood Pressure 1: 128/78 Code: 8480-6 BMI: 22.3 Code: 35072-5 Heart Rate 1: 92 bpm Height: 5'4" Respiratory Rate: 26 bpm SpO2: 94% Tempera ture: 36.7 (C) / 98.1 (F) Weight: 130 lbs 03/31/2018 Blood Pressure 1: 136/78 Code: 8480-6 BMI: 21.5 Code: 90983-8 Heart Rate 1: 76 bpm Height: 5'4" Respiratory Rate: 24 bpm SpO2: 95% Tempera ture: 36.8 (C) / 98.3 (F) Weight: 125 lbs 01/26/2018 Blood Pressure 1: 142/64 Code: 8480-6 BMI: 20.6 Code: 70766-2 Heart Rate 1: 90 bpm Height: 5'4" Respiratory Rate: 24 bpm SpO2: 92% Tempera ture: 36.3 (C) / 97.3 (F) Weight: 120 lbs 10/26/2017 Blood Pressure 1: 124/70 Code: 8480-6 BMI: 20.3 Code: 84941-8 Heart Rate 1: 76 bpm Height: 5'4" Respiratory Rate: 22 bpm SpO2: 94% Tempera ture: 36.7 (C) / 98.1 (F) Weight: 118 lbs 09/23/2017 Blood Pressure 1: 106/70 Code: 8480-6 BMI: 19.2 Code: 17121-9 Heart Rate 1: 76 bpm Height: 5'4" Respiratory Rate: 20 bpm SpO2: 94% Tempera ture: 36.8 (C) / 98.3 (F) Weight: 112 lbs 08/12/2017 Blood Pressure 1: 116/68 Code: 8480-6 BMI: 20.1 Code: 40714-7 Heart Rate 1: 80 bpm Height: 5'4" Respiratory Rate: 22 bpm SpO2: 95% Tempera ture: 36.8 (C) / 98.2 (F) Weight: 117 lbs 07/06/2017 Blood Pressure 1: 136/78 Code: 8480-6 BMI: 20.6 Code: 97257-5 Heart Rate 1: 76 bpm Height: 5'4" Respiratory Rate: 24 bpm SpO2: 96% Tempera ture: 36.8 (C) / 98.2 (F) Weight: 120 lbs 06/02/2017 Blood Pressure 1: 112/70 Code: 8480-6 Heart Rate 1: 92 bpm Height: 5'4" Respiratory Rate: 24 bpm SpO2: 95% Temperature: 37.0 (C) / 98.6 (F) Weight: 04/29/2017 Blood Pressure 1: 94/52 Code: 8480-6 BMI: 19.6 C ode: 25840-0 Heart Rate 1: 84 bpm Height: 5'4" Respiratory Rate: 20 bpm SpO2: 96% Tempera ture: 36.9 (C) / 98.4 (F) Weight: 114 lbs 02/23/2017 Blood Pressure 1: 104/58 Code: 8480-6 Heart Rate 1: 88 bpm Respiratory Rate: 22 bpm SpO2: 93% Temperature: 36.9 (C) / 98.4 (F) We ight: 110 lbs 02/02/2017 Blood Pressure 1: 110/78 Code: 8480-6 Heart Rate 1: 102 bpm Respiratory Rate: 20 bpm SpO2: 95% Temperature: 36.1 (C) / 97.0 (F) We ight: 111 lbs 01/20/2017 Blood Pressure 1: 122/64 Code: 8480-6 Heart Rate 1: 92 bpm Respiratory Rate: 24 bpm SpO2: 94% Temperature: 37.1 (C) / 98.8 (F) We ight: 110 lbs 12/02/2016 Blood Pressure 1: 92/58 Code: 8480-6 BMI: 19.2 C ode: 51346-8 Heart Rate 1: 84 bpm Height: 5'4" Respiratory Rate: 26 bpm SpO2: 95% Tempera ture: 36.7 (C) / 98.0 (F) Weight: 112 lbs 12/01/2016 Blood Pressure 1: 114/70 Code: 8480-6 BMI: 19.2 Code: 54875-0 Heart Rate 1: 96 bpm Height: 5'4" Respiratory Rate: 28 bpm SpO2: 93% Tempera ture: 38.3 (C) / 101.0 (F) Weight: 112 lbs 10/27/2016 Blood Pressure 1: 126/66 Code: 8480-6 BMI: 19.6 Code: 94717-7 Heart Rate 1: 92 bpm Height: 5'4" Respiratory Rate: 28 bpm SpO2: 90% Tempera ture: 36.8 (C) / 98.3 (F) Weight: 114 lbs 09/09/2016 Blood Pressure 1: 126/74 Code: 8480-6 Heart Rate 1: 104 bpm Height: 5'4" Respiratory Rate: 32 bpm SpO2: 88% Temperature: 37 .2 (C) / 99.0 (F) 08/26/2016 Blood Pressure 1: 134/82 Code: 8480-6 BMI: 22.0 Code: 92689-1 Heart Rate 1: 84 bpm Height: 5'4" Respiratory Rate: 24 bpm SpO2: 94% Tempera ture: 36.8 (C) / 98.3 (F) Weight: 128 lbs 05/21/2016 Blood Pressure 1: 142/80 Code: 8480-6 BMI: 21.6 Code: 02402-2 Heart Rate 1: 104 bpm Height: 5'4" Respiratory Rate: 22 bpm SpO2: 93% Tempera ture: 36.0 (C) / 96.8 (F) Weight: 126 lbs 03/25/2016 Blood Pressure 1: 126/62 Code: 8480-6 Heart Rate 1: 88 bpm Respiratory Rate: 20 bpm SpO2: 92% Temperature: 36.8 (C) / 98.3 (F) We ight: 130 lbs 01/23/2016 Blood Pressure 1: 146/82 Code: 8480-6 BMI: 24.1 Code: 06984-7 Heart Rate 1: 92 bpm Height: 5'3" Respiratory Rate: 22 bpm Temperature: 37 .1 (C) / 98.8 (F) Weight: 136 lbs 12/26/2015 Blood Pressure 1: 142/78 Code: 8480-6 BMI: 24.6 Code: 88732-4 Heart Rate 1: 78 bpm Height: 5'3" Respiratory Rate: 20 bpm Temperature: 36 .7 (C) / 98.1 (F) Weight: 139 lbs 12/03/2015 Blood Pressure 1: 126/60 Code: 8480-6 BMI: 24.6 Code: 99248-0 Heart Rate 1: 100 bpm Height: 5'3" Respiratory Rate: 28 bpm Temperature: 37 .6 (C) / 99.6 (F) Weight: 139 lbs 09/10/2015 Blood Pressure 1: 124/64 Code: 8480-6 BMI: 23.7 Code: 51036-5 Heart Rate 1: 88 bpm Height: 5'3" Respiratory Rate: 24 bpm SpO2: 95% Tempera ture: 36.4 (C) / 97.6 (F) Weight: 134 lbs 08/06/2015 Blood Pressure 1: 114/76 Code: 8480-6 BMI: 23.2 Code: 09265-0 Heart Rate 1: 88 bpm Height: 5'3" Respiratory Rate: 22 bpm Temperature: 36 .6 (C) / 97.9 (F) Weight: 131 lbs 07/18/2015 Blood Pressure 1: 144/78 Code: 8480-6 BMI: 23.7 Code: 55244-9 Heart Rate 1: 84 bpm Height: 5'3" Respiratory Rate: 20 bpm Temperature: 37 .2 (C) / 99.0 (F) Weight: 134 lbs 04/10/2015 Blood Pressure 1: 110/64 Code: 8480-6 Heart Rate 1: 80 bpm Height: Respiratory Rate: 20 bpm Temperature: 37.1 (C) / 98.8 (F) Weight: 03/05/2015 Blood Pressure 1: 136/80 Code: 8480-6 BMI: 23.9 Code: 85081-4 Heart Rate 1: 76 bpm Height: 5'3" Respiratory Rate: 24 bpm Temperature: 37 .0 (C) / 98.6 (F) Weight: 135 lbs 01/30/2015 Blood Pressure 1: 142/80 Code: 8480-6 BMI: 23.0 Code: 58449-9 Heart Rate 1: 96 bpm Height: 5'3" Respiratory Rate: 22 bpm Temperature: 36 .2 (C) / 97.2 (F) Weight: 130 lbs 01/02/2015 Blood Pressure 1: 124/70 Code: 8480-6 BMI: 23.4 Code: 26198-2 Heart Rate 1: 84 bpm Height: 5'3" Respiratory Rate: 24 bpm SpO2: 95% Tempera ture: 36.9 (C) / 98.5 (F) Weight: 132 lbs 10/03/2014 Blood Pressure 1: 106/68 Code: 8480-6 BMI: 22.5 Code: 98485-2 Heart Rate 1: 88 bpm Height: 5'3" Respiratory Rate: 24 bpm Temperature: 37 .0 (C) / 98.6 (F) Weight: 127 lbs 08/27/2014 Blood Pressure 1: 124/68 Code: 8480-6 BMI: 21.1 Code: 11522-5 Heart Rate 1: 88 bpm Height: 5'3" Respiratory Rate: 28 bpm Temperature: 36 .9 (C) / 98.5 (F) Weight: 119 lbs 07/03/2014 Blood Pressure 1: 114/70 Code: 8480-6 Heart Rate 1: 84 bpm Respiratory Rate: 28 bpm Temperature: 36.8 (C) / 98.3 (F) Weight: 121 lbs 04/11/2014 Blood Pressure 1: 112/68 Code: 8480-6 Heart Rate 1: 92 bpm Respiratory Rate: 20 bpm Temperature: 36.7 (C) / 98.0 (F) Weight: 124 lbs 03/07/2014 Blood Pressure 1: 102/68 Code: 8480-6 Heart Rate 1: 84 bpm Respiratory Rate: 20 bpm Temperature: 37.0 (C) / 98.6 (F) Weight: 121 lbs 01/30/2014 Blood Pressure 1: 128/68 Code: 8480-6 Heart Rate 1: 90 bpm Respiratory Rate: 20 bpm Temperature: 37.1 (C) / 98.8 (F) Weight: 116 lbs 01/18/2014 Blood Pressure 1: 132/80 Code: 8480-6 Heart Rate 1: 96 bpm Temperature: 36.7 (C) / 98.0 (F) 01/16/2014 Blood Pressure 1: 126/78 Code: 8480-6 Heart Rate 1: 92 bpm Respiratory Rate: 24 bpm SpO2: 93% Temperature: 36.7 (C) / 98.1 (F) We ight: 12/12/2013 Blood Pressure 1: 126/80 Code: 8480-6 Heart Rate 1: 102 bpm Respiratory Rate: 26 bpm SpO2: 96% Temperature: 37.1 (C) / 98.8 (F) We ight: 120 lbs 11/07/2013 Blood Pressure 1: 114/68 Code: 8480-6 Heart Rate 1: 88 bpm Respiratory Rate: 22 bpm Temperature: 36.3 (C) / 97.3 (F) Weight: 118 lbs 10/10/2013 Blood Pressure 1: 102/58 Code: 8480-6 Heart Rate 1: 90 bpm Respiratory Rate: 18 bpm Temperature: 36.8 (C) / 98.3 (F) Weight: 112 lbs 08/08/2013 Blood Pressure 1: 114/78 Code: 8480-6 Heart Rate 1: 88 bpm Respiratory Rate: 20 bpm Temperature: 36.8 (C) / 98.2 (F) Weight: 117 lbs 07/26/2013 Blood Pressure 1: 120/70 Code: 8480-6 BMI: 19.2 Code: 54421-1 Heart Rate 1: 70 bpm Height: 5'4" Respiratory Rate: 20 bpm Temperature: 36 .9 (C) / 98.4 (F) Weight: 112 lbs 06/28/2013 Blood Pressure 1: 102/68 Code: 8480-6 BMI: 19.6 Code: 12177-3 Heart Rate 1: 76 bpm Height: 5'4" Respiratory Rate: 20 bpm Temperature: 36 .8 (C) / 98.2 (F) Weight: 114 lbs 05/31/2013 Blood Pressure 1: 106/70 Code: 8480-6 BMI: 18.9 Code: 01512-7 Heart Rate 1: 100 bpm Height: 5'4" Respiratory Rate: 20 bpm Temperature: 36 .4 (C) / 97.6 (F) Weight: 110 lbs 05/03/2013 Blood Pressure 1: 126/70 Code: 8480-6 BMI: 19.1 Code: 68806-1 Heart Rate 1: 88 bpm Height: 5'4" Respiratory Rate: 20 bpm Temperature: 37 .1 (C) / 98.8 (F) Weight: 111 lbs 04/25/2013 Blood Pressure 1: 114/68 Code: 8480-6 BMI: 19.4 Code: 09746-6 Heart Rate 1: 92 bpm Height: 5'4" Respiratory Rate: 24 bpm SpO2: 96% Tempera ture: 37.7 (C) / 99.8 (F) Weight: 113 lbs 03/08/2013 Blood Pressure 1: 94/68 Code: 8480-6 BMI: 21.3 C ode: 82339-6 Heart Rate 1: 88 bpm Height: 5'4" Respiratory Rate: 24 bpm Temperature: 37 .0 (C) / 98.6 (F) Weight: 124 lbs 02/07/2013 Blood Pressure 1: 106/64 Code: 8480-6 BMI: 21.8 Code: 99988-3 Heart Rate 1: 84 bpm Height: 5'4" Respiratory Rate: 22 bpm Temperature: 36 .8 (C) / 98.2 (F) Weight: 127 lbs 01/10/2013 Blood Pressure 1: 122/68 Code: 8480-6 BMI: 21.6 Code: 10952-5 Heart Rate 1: 94 bpm Height: 5'4" SpO2: 94% Temperature: 36.7 (C) / 98.1 (F) Weight: 126 lbs 09/28/2012 Blood Pressure 1: 124/78 Code: 8480-6 BMI: 24.9 Code: 62863-1 Heart Rate 1: 92 bpm Height: 5'4" Respiratory Rate: 20 bpm Temperature: 36 .7 (C) / 98.1 (F) Weight: 145 lbs 06/28/2012 Blood Pressure 1: 134/80 Code: 8480-6 BMI: 24.9 Code: 55259-5 Heart Rate 1: 76 bpm Height: 5'4" Respiratory Rate: 20 bpm Temperature: 36 .8 (C) / 98.2 (F) Weight: 145 lbs 05/03/2012 Blood Pressure 1: 108/62 Code: 8480-6 BMI: 25.6 Code: 81263-8 Heart Rate 1: 88 bpm Height: 5'4" Temperature: 36.2 (C) / 97.2 (F) Weight: 149 lbs 03/01/2012 Blood Pressure 1: 124/66 Code: 8480-6 BMI: 25.1 Code: 04188-6 Heart Rate 1: 76 bpm Height: 5'4" Respiratory Rate: 20 bpm Temperature: 36 .6 (C) / 97.9 (F) Weight: 146 lbs 01/26/2012 Blood Pressure 1: 118/82 Code: 8480-6 BMI: 25.1 Code: 73543-2 Heart Rate 1: 74 bpm Height: 5'4" Temperature: 36.8 (C) / 98.2 (F) Weight: 146 lbs 11/03/2011 Blood Pressure 1: 126/80 Code: 8480-6 BMI: 27.3 Code: 79712-1 Heart Rate 1: 72 bpm Height: 5'4" Respiratory Rate: 20 bpm Temperature: 36 .6 (C) / 97.8 (F) Weight: 159 lbs 08/10/2011 Blood Pressure 1: 142/80 Code: 8480-6 Heart Rate 1: 84 bpm Temperature: 36.8 (C) / 98.2 (F) Weight: 150 lbs 07/15/2011 Blood Pressure 1: 144/82 Code: 8480-6 Heart Rate 1: 84 bpm Respiratory Rate: 24 bpm SpO2: 94% Temperature: 36.4 (C) / 97.6 (F) We ight: 148 lbs 03/19/2011 Blood Pressure 1: 122/76 Code: 8480-6 Te mperature: 36.2 (C) / 97.2 (F) Weight: 144 lbs 8 oz 01/28/2011 Blood Pressure 1: 126/80 Code: 8480-6 Heart Rate 1: 84 bpm Temperature: 36.7 (C) / 98.0 (F) Weight: 147 lbs 12/17/2010 Blood Pressure 1: 126/94 Code: 8480-6 Heart Rate 1: 100 bpm Temperature: 36.4 (C) / 97.6 (F) Weight: 143 lbs 2010 Blood Pressure 1: 128/68 Code: 8480-6 Heart Rate 1: 88 bpm Temperature: 36.4 (C) / 97.6 (F) Weight: 155 lbs 10/02/2010 Blood Pressure 1: 136/72 Code: 8480-6 We ight: 153 lbs 09/24/2010 Blood Pressure 1: 128/80 Code: 8480-6 Heart Rate 1: 88 bpm Temperature: 36.6 (C) / 97.9 (F) 09/02/2010 Blood Pressure 1: 134/76 Code: 8480-6 Heart Rate 1: 88 bpm Temperature: 36.2 (C) / 97.2 (F) 07/14/2010 Blood Pressure 1: 126/80 Code: 8480-6 Heart Rate 1: 92 bpm Temperature: 36.6 (C) / 97.8 (F) 05/07/2010 Blood Pressure 1: 126/78 Code: 8480-6 Heart Rate 1: 80 bpm Temperature: 36.6 (C) / 97.8 (F) 04/08/2010 Blood Pressure 1: 136/82 Code: 8480-6 Heart Rate 1: 100 bpm SpO2: 96% Temperature: 36.3 (C) / 97.3 (F) Weight: 183 lbs Functional Status No Functional Status data Reason For Visit Reason For Visit Effective Dates Notes follow up 04/24/2020 follow up 03/12/2020 back pain 02/21/2020 Medication Monitoring 02/13/2020 follow up 11/29/2019 Discuss pneumonia va ccines follow up 10/30/2019 follow up 10/25/2019 follow up 07/26/2019 follow up 07/19/2019 follow up 07/10/2019 follow up 06/05/2019 follow up 05/03/2019 weight gain/obesity 04/11/2019 follow up 03/16/2019 chronic pain follow up 02/13/2019 follow up 01/25/2019 follow up 01/03/2019 follow up 11/21/2018 follow up 10/27/2018 vomiting 10/18/2018 follow up 09/27/2018 1 Week follow up 09/14/2018 Discuss changing to brand duragesic every 72 hours follow up 09/06/2018 Refill Xtempa chest congestion 08/16/2018 follow up 07/07/2018 ETHOS performed COPD 05/31/2018 follow up 03/31/2018 follow up 01/26/2018 2 Month follow up 10/26/2017 1mo fwup follow up 09/23/2017 follow up 08/12/2017 COPD 07/06/2017 follow up 06/02/2017 1mo fwup follow up 04/29/2017 2mo fwup follow up 02/23/2017 burn 02/02/2017 follow up 01/20/2017 3mo fwup follow up 12/02/2016 1 day fwup follow up 12/01/2016 1mo fwup follow up 10/27/2016 Patient needs order for new nebulizer follow up 09/09/2016 follow up 08/26/2016 cough 07/09/2016 genital lesion 05/21/2016 Patient has history of HPV and cervical Cancer- at that time Hysterectomy performed- over 30 years ago per patient. Patient was taking bath yesterday when noticed small lesion to left labia. Nontender follow up 04/24/2016 TB read injection(s) 04/21/2016 TB test follow up 03/25/2016 2 month follow up 01/23/2016 follow up 12/26/2015 1 month follow up 12/03/2015 3mo fwup Medication Monitoring 11/07/2015 follow up 09/10/2015 5 weeks follow up 08/06/2015 1mo fwup follow up 07/18/2015 follow up 04/10/2015 1 month follow up 03/05/2015 1mo fwup follow up 01/30/2015 1 month follow up 01/02/2015 hospital fwup/3mo fw up follow up 10/03/2014 1mo fwup COPD 08/27/2014 Discuss going back t o spiriva chest congestion 07/03/2014 follow up 04/11/2014 1mo fwup follow up 03/07/2014 1mo fwup follow up 01/30/2014 2 weeks follow up 01/18/2014 2 day fwup COPD w/exac 01/16/2014 follow up 12/12/2013 1mo fwup follow up 11/07/2013 1mo fwup follow up 10/10/2013 2 month follow up 08/08/2013 2wk fwup follow up 07/26/2013 muscle weakness 06/28/2013 follow up 05/31/2013 sores 05/03/2013 follow up 04/25/2013 [facility] fw pain, generalized 03/08/2013 follow up 02/07/2013 1mo fwup follow up 01/10/2013 follow up 09/28/2012 2mo fwup follow up 06/28/2012 2mo fwup follow up 05/03/2012 follow up 03/01/2012 1mo fwup diabetes mellitus 01/26/2012 follow up 11/03/2011 3mo fwup follow up 08/10/2011 1mo fwup cough 07/15/2011 cough 03/19/2011 follow up 01/28/2011 1mo fwup follow up 12/17/2010 hospital fwup follow up 2010 2wk [facility] arthralgia(s) 10/02/2010 neck pain 09/24/2010 right sided, feels k not in thigh follow up 09/02/2010 2wk [facility] back pain 07/14/2010 had epidural beginni ng of Jun, seems to be wearing off the last 3 days follow up 05/07/2010 depression 04/08/2010 savella not helping, wants to retry prozac Encounters Encounter Performer Location Codes Date ([id number]) NO CHARGE Diagnosis: Chest pain[ICD10: R07.9] Vika HIGH DANIELLA [employer] CPT-4: 10962 04/24/2020 ([id number]) OFFICE/OUTPATIENT VISIT EST Diagnosis: Spinal stenosis, lumbar region with neurogenic claudication[ICD10: M48.062] Diagnosis: Allergy to morphine[ICD10: Z88.5] [facility] CPT- 4: 99079 03/12/2020 ([id number]) OFFICE/OUTPATIENT VISIT EST Diagnosis: Spinal stenosis, lumbar region with neurogenic claudication[ICD10: M48.062] Diagnosis: Spondylosis without myelopathy or radiculopathy, 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] Vika BLANCO [employer] CPT-4: 13261 02/21/2020 ([id number]) OFFICE/OUTPATIENT VISIT EST Diagnosis: Urticaria[ICD10: L50.9] Diagnosis: Allergy to morphine[ICD10: Z88.5] Diagnosis: Chronic pain syndrome[ICD10: G89.4] Vika ELDER [employer] CPT-4: 21868 02/13/2020 ([id number]) OFFICE/OUTPATIENT VISIT EST Diagnosis: Chronic pain syndrome[ICD10: G89.4] Diagnosis: Localized edema[ICD10: R60.0] Diagnosis: Chronic obstructive pulmonary disease, unspecified[ICD10: J44.9] Diagnosis: Other fatigue[ICD10: R53.83] Diagnosis: Muscle weakness (generalized)[ICD10: M62.81] Diagnosis: Spinal stenosis, lumbar region with neurogenic claudication[ICD10: M48.062] Vika ERNTERIA DO [facility] CPT-4: 32888 11/29/2019 ([id number]) OFFICE/OUTPATIENT VISIT EST Diagnosis: Chronic pain syndrome[ICD10: G89.4] Diagnosis: Lumbar degenerative disc disease[ICD10: M51.36] Diagnosis: Muscle spasm[ICD10: M62.838] Diagnosis: Spinal stenosis, lumbar region with neurogenic claudication[ICD10: M48.062] Diagnosis: Spondylosis without myelopathy or radiculopathy, 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] Vika RENTERIA DO [facility] CPT-4: 60370 10/30/2019 ([id number]) OFFICE/OUTPATIENT VISIT EST Diagnosis: Chronic pain syndrome[ICD10: G89.4] Vika RENTERIA DO [facility] CPT-4: 69005 10/25/2019 ([id number]) OFFICE/OUTPATIENT VISIT EST Diagnosis: Epigastric pain[ICD10: R10.13] Diagnosis: Nausea[ICD10: R11.0] Diagnosis: Chronic obstructive pulmonary disease, unspecified[ICD10: J44.9] Vika RENTERIA [facility] CPT-4: 15500 07/26/2019 ([id number]) OFFICE/OUTPATIENT VISIT EST Diagnosis: Chronic obstructive pulmonary disease with (acute) exacerbation[ICD10: J44.1] Diagnosis: Chronic respiratory failure with hypoxia[ICD10: J96.11] Diagnosis: Other fatigue[ICD10: R53.83] Diagnosis: Edema, unspecified[ICD10: R60.9] Vika RENTERIA DO [facility] CPT-4: 21531 07/19/2019 ([id number]) OFFICE/OUTPATIENT VISIT EST Diagnosis: Chronic obstructive pulmonary disease with acute lower respiratory infection[ICD10: J44.0] Vika RENTERIA DO [facility] CPT-4: 13199 07/10/2019 ([id number]) OFFICE/OUTPATIENT VISIT EST Diagnosis: Type 2 diabetes mellitus with hyperglycemia[ICD10: E11.65] Diagnosis: Other infective otitis externa, left ear[ICD10: H60.392] Vikajenny RENTERIA DO [facility] CPT-4: 95624 06/05/2019 ([id number]) OFFICE/OUTPATIENT VISIT EST Diagnosis: Chronic obstructive pulmonary disease with (acute) exacerbation[ICD10: J44.1] Diagnosis: Type 2 diabetes mellitus with hyperglycemia[ICD10: E11.65] Vika RENTERIA DO [facility] CPT-4: 35758 05/03/2019 ([id number]) OFFICE/OUTPATIENT VISIT EST Diagnosis: Type 2 diabetes mellitus with hyperglycemia[ICD10: E11.65] Diagnosis: Abnormal weight gain[ICD10: R63.5] Diagnosis: Chronic obstructive pulmonary disease with acute lower respiratory infection[ICD10: J44.0] Vika RENTERIA DO [facility] CPT-4: 44572 04/11/2019 ([id number]) OFFICE/OUTPATIENT VISIT EST Diagnosis: Hypothyroidism, unspecified[ICD10: E03.9] Diagnosis: Abnormal weight gain[ICD10: R63.5] Diagnosis: Other fatigue[ICD10: R53.83] Vika RENTERIA DO [facility] CPT-4: 66812 03/16/2019 ([id number]) OFFICE/OUTPATIENT VISIT EST Diagnosis: Abnormal weight gain[ICD10: R63.5] Diagnosis: Chronic obstructive pulmonary disease, unspecified[ICD10: J44.9] Diagnosis: Other chronic pain[ICD10: G89.29] Vika RENTERIA [employer] [facility] CPT-4: 65281 02/13/2019 ([id number]) OFFICE/OUTPATIENT VISIT EST Diagnosis: Chronic pain syndrome[ICD10: G89.4] Diagnosis: Edema, unspecified[ICD10: R60.9] Diagnosis: Major depressive disorder, 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] Diagnosis: Other fatigue[ICD10: R53.83] Vika RENTERIA DO [facility] CPT-4: 96086 01/25/2019 ([id number]) OFFICE/OUTPATIENT VISIT EST Diagnosis: Localized edema[ICD10: R60.0] Diagnosis: Other forms of dyspnea[ICD10: R06.09] Diagnosis: Hypothyroidism, unspecified[ICD10: E03.9] Vika RENTERIA DO [facility] CPT-4: 78110 01/03/2019 ([id number]) OFFICE/OUTPATIENT VISIT EST Diagnosis: Abnormal weight gain[ICD10: R63.5] Diagnosis: Localized edema[ICD10: R60.0] Diagnosis: Chronic pain syndrome[ICD10: G89.4] Vika RENTERIA DO [facility] CPT-4: 80014 11/21/2018 ([id number]) OFFICE/OUTPATIENT VISIT EST Diagnosis: Localized edema[ICD10: R60.0] Vika RENTERIA DO [facility] CPT-4: 02459 10/27/2018 ([id number]) OFFICE/OUTPATIENT VISIT EST Diagnosis: Dizziness and giddiness[ICD10: R42] Diagnosis: Nausea with vomiting, unspecified[ICD10: R11.2] Vika RENTERIA DO [facility] CPT-4: 53602 10/18/2018 ([id number]) OFFICE/OUTPATIENT VISIT EST Diagnosis: Localized edema[ICD10: R60.0] Diagnosis: Hypothyroidism, unspecified[ICD10: E03.9] Diagnosis: Adjustment disorder with mixed anxiety and depressed mood[ICD10: F43.23] Nakia RENTERIA DO [facility] CPT-4: 02376 ([id number]) OFFICE/OUTPATIENT VISIT EST Diagnosis: Localized edema[ICD10: R60.0] Diagnosis: Chronic pain syndrome[ICD10: G89.4] Diagnosis: Other forms of dyspnea[ICD10: R06.09] Vika RENTERIA DO [facility] CPT-4: 45986 09/14/2018 OFFICE/OUTPATIENT VISIT EST Diagnosis: Edema, unspecified[ICD10: R60.9] Diagnosis: Dyspnea, unspecified[ICD10: R06.00] Diagnosis: Other fatigue[ICD10: R53.83] Vika RENTERIA DO [facility] CPT-4: 17357 09/06/2018 ([id number]) OFFICE/OUTPATIENT VISIT EST Diagnosis: Other muscle spasm[ICD10: M62.838] Diagnosis: Acute bronchitis, unspecified[ICD10: J20.9] Diagnosis: Drug induced constipation[ICD10: K59.03] Nakia [facility]NER [facility] CPT-4: 66345 08/16/2018 ([id number]) OFFICE/OUTPATIENT VISIT EST Diagnosis: Chronic pain syndrome[ICD10: G89.4] Diagnosis: Drug induced constipation[ICD10: K59.03] Diagnosis: Encounter for therapeutic drug level monitoring[ICD10: Z51.81] Diagnosis: Chronic obstructive pulmonary disease, unspecified[ICD10: J44.9] Diagnosis: Chronic respiratory failure with hypoxia[ICD10: J96.11] Nakia VEGALINE Eugenia [employer] CPT-4: 50844 07/07/2018 ([id number]) OFFICE/OUTPATIENT VISIT EST Diagnosis: Chronic obstructive pulmonary disease, unspecified[ICD10: J44.9] Diagnosis: Hypoxemia[ICD10: R09.02] Diagnosis: Dependence on supplemental oxygen[ICD10: Z99.81] Diagnosis: Hypothyroidism, unspecified[ICD10: E03.9]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
--- OUTSIDE RECORDS SUMMARY | 2020-04-24 21:48 | XMS REPORT | CCD ---
Author Author Yana Renteria D.O. 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 Role Phone Vika Renteria D.O., PP Unavailable CCM Unavailable Summary Purpose Interface Exchange Insurance Providers Payer name Policy type / Coverage type Covered green party ID Effective Begin Date Effective End Date [employer] [facility] [place] Medicaid [id number] 2018 U nknown Family History Family History data not found Social History Social History Element Codes Description Effective Dates Marital status Unknown 06/28/[address]: [id number] Currently smokes tobacco 05/2013 Allergies, Adverse Reactions, [...] Fill Instructions gabapentin 300 mg capsule RxNorm: 743696 TAKE ONE CAPSULE BY [facility] TWICE A DAY 04/17/2020 No Stop Date Active MS Contin 200 mg tablet,extended release RxNorm: 145695 1 Tablet(s) Oral two times a day 04/16/2020 05/16/2020 Active cyclobenzaprine 10 mg tablet RxNorm: 649812 TAKE ONE TA BLET BY MOUTH THREE TIMES A DAY NEEDED 04/11/2020 No Stop Date Active potassium chloride ER 20 mEq tablet,extended release RxNorm: 612669 TAKE ONE TABLET BY MOUTH DAILY 04/11/2020 No Stop Date Active ProAir HFA 90 mcg/actuation aerosol inhaler RxNorm: 127285 INHALE ONE PUFF BY MOUTH EVERY 4 HOURS FOR WHEEZING OR FOR SHORTNESS OF BREATH 04/11/2020 No Stop Date Active Daliresp 500 mcg tablet RxNorm: 3902297 TAKE ONE TABLET BY MOUTH DAILY 04/11/2020 No Stop Date Active hydroxyzine HCl 50 mg tablet RxNorm: 294549 TAKE ONE TA BLET BY MOUTH TWICE A DAY WITH MORPHINE. *REPLACES BENADRYL* 04/11/2020 No Stop Date Active fluoxetine 20 mg capsule RxNorm: 771620 1 Capsule(s) Oral QD 201905/10/2020 Active fluoxetine 20 mg capsule RxNorm: 186529 1 Capsule(s) Oral QD 201904/09/2020 Inactive levothyroxine 25 mcg tablet RxNorm: 097787 TAKE ONE TAB LET BY MOUTH EVERY MORNING 04/09/2020 No Stop Date Active metformin 500 mg tablet RxNorm: 439679 1 Tablet(s) Oral QD 04/09/2007/08/2020 Active MS Contin 200 mg tablet,extended release RxNorm: 980705 1 Tablet(s) Oral two times a day 03/19/2020 04/15/2020 Inactive Relistor 150 mg tablet RxNorm: 7132606 TAKE THREE TABLETS BY BENOIT TH DAILY 03/13/2020 No Stop Date Active furosemide 40 mg tablet RxNorm: 235193 TAKE ONE TABLET BY MOUTH EVERY MORNING 03/13/2020 No Stop Date Active cyclobenzaprine 10 mg tablet RxNorm: 941461 TAKE ONE TA BLET BY MOUTH THREE TIMES A DAY NEEDED 03/13/2020 04/10/2020 Inactive prednisone 1 mg tablet RxNorm: 963314 1 Tablet(s) Oral two times a day to take with hydroxyzine 03/12/2020 No Stop Date Active hydroxyzine HCl 50 mg tablet RxNorm: 181190 1 Tablet(s) Oral two times a day to take with morphine--replaces benadryl 03/12/2020 04/10/2020 Inactive prednisolone 5 mg tablet RxNorm: 651654 1 Tablet(s) Oral two ti mes a day 02/22/2020 03/23/2020 Inactive prednisolone 5 mg tablet RxNorm: 133941 1 Tablet(s) Oral two ti mes a day 02/22/2020 02/21/2020 Inactive Symbicort 160 mcg-4.5 mcg/actuation HFA aerosol inhaler RxNo rm: 4098942 INHALE TWO PUFFS BY MOUTH TWICE A DAY 02/19/2020 No Stop Date Active Daliresp 500 mcg tablet RxNorm: 8028972 TAKE ONE TABLET BY MOUTH DAILY 02/19/2020 No Stop Date Active prednisone 20 mg tablet RxNorm: 161868 1 Tablet(s) Oral two yumi es a day 02/13/2020 02/20/2020 Inactive oxycodone 30 mg tablet RxNorm: 0986078 1 Tablet(s) Oral four times a day replaces MS Contin 02/13/2020 02/22/2020 Inactive levothyroxine 25 mcg tablet RxNorm: 377285 TAKE ONE TAB LET BY MOUTH EVERY MORNING 02/09/2020 04/08/2020 Inactive MS Contin 200 mg tablet,extended release RxNorm: 020055 1 Tablet(s) Oral two times a day 02/01/2020 03/01/2020 Inactive Premarin 0.45 mg tablet RxNorm: 259047 TAKE ONE TABLET BY MOUTH DAILY 01/31/2020 No Stop Date Active cyclobenzaprine 10 mg tablet RxNorm: 391623 TAKE ONE TA BLET BY MOUTH THREE TIMES A DAY NEEDED 01/31/2020 03/12/2020 Inactive metformin 500 mg tablet RxNorm: 238085 1 Tablet(s) Oral QD 01/31/2004/08/2020 Inactive gabapentin 300 mg capsule RxNorm: 968358 TAKE ONE CAPSULE BY [facility] TWICE A DAY 01/16/2020 04/16/2020 Inactive potassium chloride ER 20 mEq tablet,extended release RxNorm: 471603 TAKE ONE TABLET BY MOUTH DAILY 01/08/2020 07/05/2020 Active ProAir HFA 90 mcg/actuation aerosol inhaler RxNorm: 706538 INHALE ONE PUFF BY MOUTH EVERY 4 HOURS FOR WHEEZING OR FOR SHORTNESS OF BREATH 01/04/2020 04/10/2020 Inactive metformin 500 mg tablet RxNorm: 875967 1 Tablet(s) Oral QD 01/04/2004/09/2020 Inactive MS Contin 200 mg tablet,extended release RxNorm: 843957 1 Tablet(s) Oral two times a day 01/02/2020 01/31/2020 Inactive Pulmicort 1 mg/2 mL suspension for nebulization RxNorm: 6168 19 USE ONE VIAL VIA NEBULIZER BY MOUTH TWICE A DAY 12/21/2019 No Stop Date Active furosemide 40 mg tablet RxNorm: 647912 TAKE ONE TABLET BY MOUTH EVERY MORNING NEEDED 12/20/2019 03/12/2020 Inactive levothyroxine 25 mcg tablet RxNorm: 281475 TAKE ONE TAB LET BY MOUTH EVERY MORNING 12/20/2019 02/08/2020 Inactive MS Contin 200 mg tablet,extended release RxNorm: 637419 1 Tablet(s) Oral two times a day 12/05/2019 01/01/2020 Inactive Medrol (Aníbal) 4 mg tablets in a dose pack RxNorm: 808895 6 Tablet(s) Oral QD --then as directed 11/30/2019 12/05/2019 Inactive MS Contin 200 mg tablet,extended release RxNorm: 379983 1 Tablet(s) Oral two times a day 11/29/2019 12/04/2019 Inactive cyclobenzaprine 10 mg tablet RxNorm: 155900 TAKE ONE TA BLET BY MOUTH THREE TIMES A DAY NEEDED 11/21/2019 01/30/2020 Inactive MS Contin 200 mg tablet,extended release RxNorm: 786146 1 Tablet(s) Oral two times a day replaces 100mg dose 11/03/2019 11/02/2019 Inactive MS Contin 200 mg tablet,extended release RxNorm: 537264 1 Tablet(s) Oral two times a day replaces 100mg dose 11/03/2019 11/29/2019 Inactive ferrous sulfate 325 mg (65 mg iron) tablet RxNorm: 484948 1 Tab let(s) Oral QD 10/30/2019 No Stop Date Active MS Contin 100 mg tablet,extended release RxNorm: 724820 1 Table t(s) Oral QD 10/30/2019 10/29/2019 Inactive MS Contin 100 mg tablet,extended release RxNorm: 152918 1 Table t(s) Oral QD 10/30/2019 11/02/2019 Inactive pantoprazole 40 mg tablet,delayed release RxNorm: 635239 1 Tabl et(s) Oral QD 10/25/2019 No Stop Date Active Minipress 2 mg capsule RxNorm: 134357 1 Capsule(s) Oral QAM and 3 at bedtime 10/25/2019 No Stop Date Active Lancets, Super Thin RxNorm: 1 Unit Dose Miscellaneous QD 9 11/27/2020 Active Relistor 150 mg tablet RxNorm: 9389992 TAKE THREE TABLETS BY BENOIT TH DAILY 10/25/2019 03/12/2020 Inactive oxycodone 15 mg tablet RxNorm: 8588051 1 Tablet(s) Oral four times a day as needed for pain 10/25/2019 11/28/2019 Inactive metformin 500 mg tablet RxNorm: 877682 1 Tablet(s) Oral QD 10/25/20 19 01/03/2020 Inactive levothyroxine 25 mcg tablet RxNorm: 611170 1 Tablet(s) Oral QAM 02/201912/19/2019 Inactive levothyroxine 25 mcg tablet RxNorm: 246009 1 Tablet(s) Oral QAM 02/201910/24/2019 Inactive MS Contin 100 mg tablet,extended release RxNorm: 343852 1 Tablet(s) Oral two times a day replaces fentanyl 10/25/2019 10/25/2019 Inactive Cymbalta 60 mg capsule,delayed release RxNorm: 724062 1 Capsule (s) Oral QAM 10/25/2019 04/09/2020 Inactive Cymbalta 30 mg capsule,delayed release RxNorm: 103261 1 Capsule (s) Oral QAM 10/25/2019 04/09/2020 Inactive Premarin 0.45 mg tablet RxNorm: 966900 TAKE ONE TABLET BY MOUTH DAILY 10/24/2019 01/30/2020 Inactive Duragesic 100 mcg/hr transdermal patch RxNorm: 581491 2 Application TD Q48H for pain 10/18/2019 10/24/2019 Inactive gabapentin 300 mg capsule RxNorm: 313764 TAKE ONE CAPSULE BY MO [facility] TWICE A DAY 10/16/2019 01/15/2020 Inactive cyclobenzaprine 10 mg tablet RxNorm: 053871 TAKE ONE TA BLET BY MOUTH THREE TIMES A DAY NEEDED 09/27/2019 11/20/2019 Inactive Relistor 150 mg tablet RxNorm: 7914589 TAKE THREE TABLETS BY BENOIT TH DAILY 09/25/2019 10/24/2019 Inactive ProAir HFA 90 mcg/actuation aerosol inhaler RxNorm: 347500 INHALE ONE PUFF BY MOUTH EVERY 4 HOURS FOR WHEEZING OR FOR SHORTNESS OF BREATH 09/25/2019 01/03/2020 Inactive furosemide 40 mg tablet RxNorm: 442112 1 Tablet(s) Oral QAM as needed 09/25/2019 09/25/2019 Inactive oxycodone 15 mg tablet RxNorm: 6571969 1 Tablet(s) PO QID as nee ded for pain 09/21/2019 10/24/2019 Inactive Duragesic 100 mcg/hr transdermal patch RxNorm: 761160 2 Application TD Q48H for pain 09/19/2019 10/17/2019 Inactive Daliresp 500 mcg tablet RxNorm: 9407981 1 Tablet(s) Oral QD 019 02/18/2020 Inactive Relistor 150 mg tablet RxNorm: 7815302 TAKE THREE TABLETS BY BENOIT TH DAILY 07/25/2019 07/30/2019 Inactive cyclobenzaprine 10 mg tablet RxNorm: 581993 TAKE ONE TA BLET BY MOUTH THREE TIMES A DAY NEEDED 07/25/2019 09/22/2019 Inactive potassium chloride ER 20 mEq tablet,extended release RxNorm: 824117 TAKE ONE TABLET BY MOUTH DAILY 07/25/2019 01/07/2020 Inactive fluoxetine 40 mg capsule RxNorm: 574595 TAKE ONE CAPSULE BY BENOIT TH EVERY MORNING 07/11/2019 10/24/2019 Inactive Medrol (Aníbal) 4 mg tablets in a dose pack RxNorm: 724185 6 Tablet(s) PO QD --then as directed 07/10/2019 07/15/2019 Inactive omeprazole 40 mg capsule,delayed release RxNorm: 014971 1 Capsule(s) PO QD for stomach TAKE ONE CAPSULE BY MOUTH DAILY 07/10/2019 10/24/2019 Inactive Augmentin 875 mg-125 mg tablet RxNorm: 032393 1 Tablet(s) PO BID 07/16/2019 Inactive Trulicity 0.75 mg/0.5 mL subcutaneous pen injector RxNorm: 1 124289 0.75 Milliliter(s) SQ weekly 07/05/2019 10/24/2019 Inactive Compazine 10 mg tablet RxNorm: 962913 TAKE ONE TABLET B Y MOUTH FOUR TIMES A DAY NEEDED FOR NAUSEA 06/20/2019 07/19/2019 Inactive ProAir HFA 90 mcg/actuation aerosol inhaler RxNorm: 457010 INHALE ONE PUFF BY MOUTH EVERY 4 HOURS FOR WHEEZING OR FOR SHORTNESS OF BREATH 06/20/2019 06/23/2019 Inactive Daliresp 500 mcg tablet RxNorm: 6160735 TAKE ONE TABLET BY MOUTH DAILY 06/12/2019 09/10/2019 Inactive iimfpuul-oytseyabt-ghqswbaez 3.5 mg/mL-10,000 unit/mL- 1 % ear solution RxNorm: 988982 4 Drop(s) otic (ear) TID to left ear 06/05/2019 10/24/2019 Inac tive furosemide 40 mg tablet RxNorm: 264402 TAKE ONE TABLET BY MOUTH EVERY MORNING 05/26/2019 07/09/2019 Inactive Duragesic 100 mcg/hr transdermal patch RxNorm: 823747 2 Application TD Q48H for pain 05/16/2019 06/14/2019 Inactive oxycodone 15 mg tablet RxNorm: 9275544 1 Tablet(s) PO QID as nee ded for pain 05/10/2019 09/20/2019 Inactive doxycycline hyclate 100 mg capsule RxNorm: 5113016 1 Capsule(s) PO BID 05/03/2019 05/12/2019 Inactive prednisone 20 mg tablet RxNorm: 520823 1 Tablet(s) PO T ID for 3 days then 1 po BID for 3 days then one daily for 3 days 05/03/2019 07/11/2019 Inactiv e Ozempic 0.25 mg or 0.5 mg (2 mg/1.5 mL) subcutaneous p en injector RxNorm: 8596116 0.5 Milligram(s) SQ QW 05/03/2019 07/09/2019 Inactive fluconazole 100 mg tablet RxNorm: 682690 1 Tablet(s) PO QD 05/03/2005/07/2019 Inactive Premarin 0.45 mg tablet RxNorm: 676129 TAKE ONE TABLET BY MOUTH DAILY 05/03/2019 10/23/2019 Inactive potassium chloride ER 20 mEq tablet,extended release RxNorm: 756239 1 Tablet(s) PO QD 04/27/2019 07/25/2019 Inactive potassium chloride ER 20 mEq tablet,extended release RxNorm: 201326 1 Tablet(s) PO QD 04/25/2019 04/26/2019 Inactive Compazine 10 mg tablet RxNorm: 185891 1 Tablet(s) PO QID as nee ded for nausea 04/25/2019 05/04/2019 Inactive ProAir HFA 90 mcg/actuation aerosol inhaler RxNorm: 893226 INHALE ONE PUFF BY MOUTH EVERY 4 HOURS FOR WHEEZING OR FOR SHORTNESS OF BREATH 04/12/2019 06/10/2019 Inactive Medrol (Aníbal) 4 mg tablets in a dose pack RxNorm: 546989 6 Tablet(s) PO QD --then as directed 04/11/2019 04/16/2019 Inactive Symbicort 160 mcg-4.5 mcg/actuation HFA aerosol inhaler RxNo rm: 9694297 2 Puff(s) INH BID 04/10/2019 10/06/2019 Inactive levothyroxine 50 mcg tablet RxNorm: 357344 1 Tablet(s) PO QD 201810/24/2019 Inactive gabapentin 300 mg capsule RxNorm: 262510 1 Capsule(s) PO BID 201810/02/2019 Inactive Symbicort 160 mcg-4.5 mcg/actuation HFA aerosol inhaler RxNo rm: 4925729 2 Puff(s) INH BID 04/06/2019 04/09/2019 Inactive oxycodone 15 mg tablet RxNorm: 1134636 1 Tablet(s) PO QID as nee ded for pain 04/05/2019 05/09/2019 Inactive levothyroxine 50 mcg tablet RxNorm: 620254 1 Tablet(s) PO QD 201804/09/2019 Inactive furosemide 40 mg tablet RxNorm: 751045 TAKE ONE TABLET BY MOUTH EVERY MORNING 03/21/2019 04/19/2019 Inactive levothyroxine 50 mcg tablet RxNorm: 341954 TAKE ONE TABLET BY M OUTH DAILY 03/21/2019 03/27/2019 Inactive Duragesic 100 mcg/hr transdermal patch RxNorm: 890303 2 Application TD Q48H for pain 03/13/2019 04/11/2019 Inactive oxycodone 15 mg tablet RxNorm: 6550161 1 Tablet(s) PO QID as nee ded for pain 03/06/2019 04/04/2019 Inactive Relistor 150 mg tablet RxNorm: 5574046 3 Tablet(s) PO QD 02/28/2019 0 05/28/2019 Inactive cyclobenzaprine 10 mg tablet RxNorm: 470381 1 Tablet(s) PO TID as needed 02/28/2019 05/28/2019 Inactive phentermine 37.5 mg tablet RxNorm: 589753 1 Tablet(s) PO QAM 201803/15/2019 Inactive Duragesic 100 mcg/hr transdermal patch RxNorm: 820718 2 Application TD Q48H for pain 02/09/2019 03/10/2019 Inactive Daliresp 500 mcg tablet RxNorm: 2474477 TAKE ONE TABLET BY MOUTH DAILY 01/31/2019 05/30/2019 Inactive Premarin 0.45 mg tablet RxNorm: 560596 1 Tablet(s) PO QD 01/31/2019 0 04/30/2019 Inactive fluoxetine 40 mg capsule RxNorm: 488477 Capsule(s) TAKE ONE CAPSULE BY MOUTH EVERY MORNING 01/31/2019 04/30/2019 Inactive levothyroxine 50 mcg tablet RxNorm: 764691 1 Tablet(s) PO QD 201804/10/2019 Inactive follow up in 3 weeks levothyroxine 50 mcg tablet RxNorm: 458516 1 Tablet(s) PO QD 201801/25/2019 Inactive follow up in 3 weeks potassium chloride ER 20 mEq tablet,extended release RxNorm: 760207 2 Tablet(s) PO BID 01/23/2019 01/08/2020 Inactive Synthroid 50 mcg tablet RxNorm: 023768 TAKE ONE TABLET BY MOUTH DAILY 01/16/2019 10/24/2019 Inactive potassium chloride ER 20 mEq tablet,extended release RxNorm: 249812 2 Tablet(s) PO BID 01/04/2019 01/22/2019 Inactive ProAir HFA 90 mcg/actuation aerosol inhaler RxNorm: 761050 INHALE ONE PUFF BY MOUTH EVERY 4 HOURS FOR WHEEZING OR SHORTNESS OF BREATH 01/04/201902/20 Inactive Request already responded to by other me ans (e.g. phone or fax) ProAir HFA 90 mcg/actuation aerosol inhaler RxNorm: 3223303 INHALE ONE PUFF BY MOUTH EVERY 4 HOURS FOR WHEEZING OR SHORTNESS OF BREATH 01/02/201912/23 Inactive gabapentin 300 mg capsule RxNorm: 338442 TAKE ONE CAPSULE BY MO UTH TWICE A DAY 12/30/2018 04/06/2019 Inactive furosemide 40 mg tablet RxNorm: 565283 1 Tablet(s) PO QAM 12/26/2018 02/23/2019 Inactive Compazine 10 mg tablet RxNorm: 538153 1 Tablet(s) PO QID as nee ded for nausea 12/07/2018 12/16/2018 Inactive metolazone 2.5 mg tablet RxNorm: 508609 TAKE ONE TABLET BY MOUT H EVERY MORNING 12/05/2018 01/03/2019 Inactive metformin ER 500 mg tablet,extended release 24 hr RxNorm: 86 0975 TAKE ONE TABLET BY MOUTH DAILY 12/05/2018 01/31/2020 Inactive Synthroid 50 mcg tablet RxNorm: 287531 1 Tablet(s) PO QD 11/25/2018 0 01/03/2019 Inactive DC any other synthroid strengths. Should be 50mcg only cyclobenzaprine 10 mg tablet RxNorm: 225250 TAKE ONE TA BLET BY MOUTH THREE TIMES A DAY NEEDED 11/09/2018 02/06/2019 Inactive metolazone 2.5 mg tablet RxNorm: 462944 1 Tablet(s) PO QAM repl aces 5mg dose 11/02/2018 12/01/2018 Inactive potassium chloride ER 20 mEq tablet,extended release RxNorm: 175543 2 Tablet(s) PO QD 2018 01/02/2019 Inactive Compazine 10 mg tablet RxNorm: 196216 1 Tablet(s) PO QID as nee ded for nausea 10/18/2018 12/07/2018 Inactive furosemide 40 mg tablet RxNorm: 319618 1 Tablet(s) PO QAM 10/12/2018 12/10/2018 Inactive ondansetron 8 mg disintegrating tablet RxNorm: 198929 1 Tablet(s) PO Q6H as needed 10/11/2018 10/17/2018 Inactive scopolamine 1 mg over 3 days transdermal patch RxNorm: 46117 2 1 Application TD behind ear. Take off after three days 10/11/2018 01/02/2019 Inactive furosemide 40 mg tablet RxNorm: 468502 1 Tablet(s) PO QAM 10/10/2018 12/26/2018 Inactive metolazone 5 mg tablet RxNorm: 835871 1 Tablet(s) PO QAM 10/06/2018 1 01/03/2018 Inactive metolazone 5 mg tablet RxNorm: 004656 1 Tablet(s) PO QAM 10/06/2018 1 12/05/2017 Inactive Xtampza ER 36 mg capsule sprinkle RxNorm: 1850263 1 Capsule(s) P O BID 10/05/2018 01/02/2019 Inactive Xtampza ER 36 mg capsule sprinkle RxNorm: 4729297 1 Capsule(s) P O BID 10/05/2018 02/12/2019 Inactive omeprazole 40 mg capsule,delayed release RxNorm: 278643 TAKE ONE CAPSULE BY MOUTH DAILY 10/03/2018 12/31/2018 Inactive Duragesic 100 mcg/hr transdermal patch RxNorm: 807659 2 Application TD Q48H for pain 09/30/2018 10/29/2018 Inactive Synthroid 50 mcg tablet RxNorm: 561377 1 Tablet(s) PO QD 09/29/2018 0 11/25/2018 Inactive DC any other synthroid strengths. Should be 50mcg only Synthroid 50 mcg tablet RxNorm: 295990 1 Tablet(s) PO QD 09/29/2018 1 11/28/2017 Inactive furosemide 40 mg tablet RxNorm: 599120 2 Tablet(s) PO Q AM for 1 week then every other day for 2 weeks 09/27/2018 10/12/2018 Inactive fluoxetine 40 mg capsule RxNorm: 702596 2 Capsule(s) PO QD 09/27/20 18 10/17/2018 Inactive potassium chloride ER 20 mEq tablet,extended release RxNorm: 468248 2 Tablet(s) PO QD for 1 week then every other day for 2 weeks 09/27/2018 2018 Inactive ProAir HFA 90 mcg/actuation aerosol inhaler RxNorm: 2855480 INHALE ONE PUFF BY MOUTH EVERY 4 HOURS FOR WHEEZING OR SHORTNESS OF BREATH 09/26/201811/23 Inactive Synthroid 75 mcg tablet RxNorm: 857748 1 Tablet(s) PO QD 09/09/2018 1 Inactive Synthroid 75 mcg tablet RxNorm: 826232 1 Tablet(s) PO QD 09/09/2018 1 11/28/2017 Inactive furosemide 40 mg tablet RxNorm: 797904 1 Tablet(s) PO QD 09/06/2018 1 Inactive potassium chloride ER 20 mEq tablet,extended release RxNorm: 681548 1 Tablet(s) PO QD 09/06/2018 09/19/2018 Inactive Duragesic 100 mcg/hr transdermal patch RxNorm: 141824 2 Application TD Q48H for pain 08/30/2018 09/28/2018 Inactive gabapentin 300 mg capsule RxNorm: 640037 TAKE ONE CAPSULE BY [facility] TWICE A DAY 08/23/2018 12/20/2018 Inactive Daliresp 500 mcg tablet RxNorm: 4379022 TAKE ONE TABLET BY MOUTH DAILY 08/23/2018 01/19/2019 Inactive Pulmicort 1 mg/2 mL suspension for nebulization RxNorm: 6168 19 USE ONE VIAL VIA NEBULIZER BY MOUTH TWICE A DAY 08/23/2018 07/11/2019 Inactive Synthroid 88 mcg tablet RxNorm: 991636 1 Tablet(s) PO QD 08/19/2018 1 Inactive Medrol (Aníbal) 4 mg tablets in a dose pack RxNorm: 390982 Tablet(s) PO take as directed 08/16/2018 09/05/2018 Inactive Relistor 150 mg tablet RxNorm: 7163938 3 Tablet(s) PO QD 08/16/2018 1 Inactive Zithromax Z-Aníbal 250 mg tablet RxNorm: 513607 Tablet(s) PO take as directed 08/16/2018 09/05/2018 Inactive cyclobenzaprine 10 mg tablet RxNorm: 288887 1 Tablet(s) PO TID as needed 08/16/2018 11/08/2018 Inactive Synthroid 88 mcg tablet RxNorm: 821851 1 Tablet(s) PO Q D NEEDS UPDATED LABS BEFORE FURTHER REFILLS 08/08/2018 08/19/2018 Inactive Premarin 0.45 mg tablet RxNorm: 750999 1 Tablet(s) PO QD 08/03/2018 0 01/31/2019 Inactive fluoxetine 20 mg capsule RxNorm: 512327 TAKE ONE CAPSULE BY BENOIT TH DAILY 08/03/2018 09/26/2018 Inactive Xtampza ER 36 mg capsule sprinkle RxNorm: 6157085 1 Capsule(s) P O BID 08/03/2018 09/01/2018 Inactive metformin ER 500 mg tablet,extended release 24 hr RxNorm: 86 0975 1 Tablet(s) PO QD 08/03/2018 10/31/2018 Inactive Symbicort 160 mcg-4.5 mcg/actuation HFA aerosol inhaler RxNo rm: 4806909 2 Puff(s) INH BID 08/03/2018 01/29/2019 Inactive Duragesic 100 mcg/hr transdermal patch RxNorm: 563895 2 Application TD Q48H for pain 07/29/2018 08/27/2018 Inactive ProAir HFA 90 mcg/actuation aerosol inhaler RxNorm: 513576 INHALE TWO PUFFS BY MOUTH EVERY 4 HOURS FOR WHEEZING OR SHORTNESS OF BREATH 07/27/201802/2018 Inactive Relistor 150 mg tablet RxNorm: 6418391 3 Tablet(s) PO QD 07/20/2018 0 08/15/2018 Inactive metformin ER 500 mg tablet,extended release 24 hr RxNorm: 86 0975 TAKE ONE TABLET BY MOUTH DAILY 07/08/2018 08/02/2018 Inactive fluoxetine 40 mg capsule RxNorm: 854652 TAKE ONE CAPSULE BY BENOIT TH EVERY MORNING 07/08/2018 10/05/2018 Inactive Xtampza ER 18 mg capsule sprinkle RxNorm: 8285234 1 Capsule(s) P O BID 07/08/2018 08/02/2018 Inactive Relistor 150 mg tablet RxNorm: 2177512 3 Tablet(s) PO QD 07/08/2018 0 07/12/2018 Inactive Synthroid 88 mcg tablet RxNorm: 859600 1 Tablet(s) PO Q D NEEDS UPDATED LABS BEFORE FURTHER REFILLS 06/23/2018 07/07/2018 Inactive fluoxetine 40 mg capsule RxNorm: 109449 TAKE ONE CAPSULE BY BENOIT TH EVERY MORNING 06/15/2018 09/26/2018 Inactive orphenadrine citrate ER 100 mg tablet,extended release RxNor m: 606760 TAKE ONE TABLET BY MOUTH TWICE A DAY FOR MUSCLE SPASM 06/15/2018 08/15/2018 Renu ctive Duragesic 100 mcg/hr transdermal patch RxNorm: 757011 2 Application TD Q48H for pain 05/30/2018 06/28/2018 Inactive ProAir HFA 90 mcg/actuation aerosol inhaler RxNorm: 020731 INHALE TWO PUFFS BY MOUTH EVERY 4 HOURS FOR WHEEZING OR SHORTNESS OF BREATH 05/19/20180 03/2018 Inactive Chantix Continuing Month Box 1 mg tablet RxNorm: 028643 TAKE ONE TABLET BY MOUTH TWICE A DAY 05/19/2018 08/15/2018 Inactive oxycodone 10 mg tablet RxNorm: 2684602 1-2 Tablet(s) PO QID as n eeded for pain 05/19/2018 07/07/2018 Inactive gabapentin 300 mg capsule RxNorm: 052513 TAKE ONE CAPSULE BY MO UTH TWICE A DAY 05/18/2018 07/16/2018 Inactive ProAir HFA 90 mcg/actuation aerosol inhaler RxNorm: 107803 INHALE TWO PUFFS BY MOUTH EVERY 4 HOURS FOR WHEEZING OR SHORTNESS OF BREATH 05/04/201804/23 Inactive Augmentin 500 mg-125 mg tablet RxNorm: 975321 1 Tablet(s) PO BID 05/03/2018 Inactive oxycodone 10 mg tablet RxNorm: 1191782 1-2 Tablet(s) PO QID as n eeded for pain 04/21/2018 05/18/2018 Inactive Synthroid 88 mcg tablet RxNorm: 120381 1 Tablet(s) PO QD 04/15/2018 0 08/08/2018 Inactive Symbicort 160 mcg-4.5 mcg/actuation HFA aerosol inhaler RxNo rm: 9861967 2 Puff(s) INH BID 04/15/2018 04/10/2019 Inactive Premarin 0.45 mg tablet RxNorm: 846001 1 Tablet(s) PO QD 04/15/2018 0 08/03/2018 Inactive ProAir HFA 90 mcg/actuation aerosol inhaler RxNorm: 708981 2 Puff(s) INH Q4H prn for wheezing or shortness of breath 04/15/2018 05/03/2018 Inactive metformin ER 500 mg tablet,extended release 24 hr RxNorm: 86 0975 1 Tablet(s) PO QD 04/11/2018 07/07/2018 Inactive omeprazole 40 mg capsule,delayed release RxNorm: 046528 TAKE ONE CAPSULE BY MOUTH DAILY 04/10/2018 06/08/2018 Inactive Synthroid 88 mcg tablet RxNorm: 615435 1 Tablet(s) PO QD 04/04/2018 0 04/14/2018 Inactive Synthroid 88 mcg tablet RxNorm: 495340 1 Tablet(s) PO QD 04/04/2018 0 04/03/2018 Inactive orphenadrine citrate ER 100 mg tablet,extended release RxNor m: 394541 1 Tablet(s) PO BID for muscle spasm 04/04/2018 05/03/2018 Inactive metformin ER 500 mg tablet,extended release 24 hr RxNorm: 86 0975 1 Tablet(s) PO QD NEEDS UPDATED LABS 03/31/2018 04/11/2018 Inactive doxycycline hyclate 100 mg capsule RxNorm: 2361932 1 Capsule(s) PO BID 03/31/2018 04/09/2018 Inactive prednisone 20 mg tablet RxNorm: 796578 3 Tablet(s) PO T ID for 3 days then 1 po BID for 3 days then one daily for 3 days 03/31/2018 07/06/2018 Inactiv e Chantix Continuing Month Box 1 mg tablet RxNorm: 610229 TAKE ONE TABLET BY MOUTH TWICE A DAY 03/25/2018 03/30/2018 Inactive oxycodone 10 mg tablet RxNorm: 5901432 1-2 Tablet(s) PO QID as n eeded for pain 03/21/2018 04/20/2018 Inactive Daliresp 500 mcg tablet RxNorm: 1308842 1 Tablet(s) PO QD 03/15/2018 08/22/2018 Inactive metformin ER 500 mg tablet,extended release 24 hr RxNorm: 86 0975 1 Tablet(s) PO QD NEEDS UPDATED LABS 03/14/2018 03/31/2018 Inactive nystatin 100,000 unit/mL oral suspension RxNorm: 352639 5 Chio liter(s) PO QID 03/02/2018 03/15/2018 Inactive nystatin 100,000 unit/mL oral suspension RxNorm: 548400 5 Chio liter(s) PO QID 03/02/2018 03/01/2018 Inactive oxycodone 10 mg tablet RxNorm: 5981784 1-2 Tablet(s) PO QID as n eeded for pain 02/16/2018 03/20/2018 Inactive fluoxetine 20 mg capsule RxNorm: 763276 1 Capsule(s) PO QD 02/15/20 18 08/02/2018 Inactive metformin ER 500 mg tablet,extended release 24 hr RxNorm: 86 0975 1 Tablet(s) PO QD Needs updated labs 02/14/2018 03/14/2018 Inactive cefdinir 300 mg capsule RxNorm: 389853 1 Capsule(s) PO BID 01/27/20 18 02/04/2018 Inactive orphenadrine citrate ER 100 mg tablet,extended release RxNor m: 777241 1 Tablet(s) PO BID for muscle spasm 01/26/2018 04/04/2018 Inactive gabapentin 300 mg capsule RxNorm: 652471 1 Capsule(s) PO BID 201704/17/2018 Inactive oxycodone 10 mg tablet RxNorm: 8848886 1-2 Tablet(s) PO QID as n eeded for pain 01/17/2018 02/15/2018 Inactive Duragesic 100 mcg/hr transdermal patch RxNorm: 578043 2 Application TD Q48H for pain 01/17/2018 02/15/2018 Inactive gabapentin 300 mg capsule RxNorm: 353411 TAKE ONE CAPSULE BY MO UTH TWICE A DAY 12/20/2017 01/18/2018 Inactive fluoxetine 40 mg capsule RxNorm: 572556 TAKE ONE CAPSULE BY BENOIT TH EVERY MORNING 12/15/2017 03/14/2018 Inactive OneTouch Ultra Test strips RxNorm: TEST DAILY 11/04/2017 02/01/2018 Inactive gabapentin 300 mg capsule RxNorm: 545887 1 Capsule(s) P O TID replaces BID dosing 10/26/2017 02/22/2018 Inactive oxycodone 10 mg tablet RxNorm: 3682458 1-2 Tablet(s) PO QID as n eeded for pain 10/18/2017 01/16/2018 Inactive Duragesic 100 mcg/hr transdermal patch RxNorm: 750678 2 Application TD Q48H for pain 10/18/2017 11/16/2017 Inactive gabapentin 300 mg capsule RxNorm: 614589 1 Capsule(s) PO BID 201610/25/2017 Inactive Abilify 5 mg tablet RxNorm: 620998 1 Tablet(s) PO QAM 09/23/201702/2017 Inactive gabapentin 300 mg capsule RxNorm: 729688 1 Capsule(s) PO BID 201610/17/2017 Inactive oxycodone 10 mg tablet RxNorm: 1708238 1-2 Tablet(s) PO QID as n eeded for pain 09/15/2017 10/17/2017 Inactive Duragesic 100 mcg/hr transdermal patch RxNorm: 881259 2 Application TD Q48H for pain 09/15/2017 10/14/2017 Inactive Duragesic 100 mcg/hr transdermal patch RxNorm: 196877 2 Application TD Q48H for pain 09/15/2017 10/24/2019 Inactive oxycodone 10 mg tablet RxNorm: 9502157 1-2 Tablet(s) PO QID as n eeded for pain 09/15/2017 08/15/2018 Inactive Daliresp 500 mcg tablet RxNorm: 3372442 1 Tablet(s) PO QD 09/06/2017 03/15/2018 Inactive Ventolin HFA 90 mcg/actuation aerosol inhaler RxNorm: 922029 2 Puff(s) INH Q4H as needed 09/02/2017 05/19/2018 Inactive oxycodone 10 mg tablet RxNorm: 4414474 1-2 Tablet(s) PO QID as n eeded for pain 08/17/2017 09/14/2017 Inactive Duragesic 100 mcg/hr transdermal patch RxNorm: 533917 2 Application TD Q48H for pain 08/17/2017 09/14/2017 Inactive fluoxetine 40 mg capsule RxNorm: 144651 Capsule(s) TAKE ONE CAPSULE BY MOUTH EVERY MORNING 08/17/2017 12/14/2017 Inactive Pulmicort 1 mg/2 mL suspension for nebulization RxNorm: 6168 19 1 Unit Dose INH BID Dx: COPD (J44.9) 08/16/2017 08/22/2018 Inactive gabapentin 300 mg capsule RxNorm: 247159 1 Capsule(s) PO QHS 201610/18/2017 Inactive fluoxetine 20 mg capsule RxNorm: 247581 1 Capsule(s) PO QD 08/12/20 17 02/14/2018 Inactive Abilify 2 mg tablet RxNorm: 844068 1 Tablet(s) PO QD TA KE ONE TABLET BY MOUTH DAILY 08/12/2017 10/25/2017 Inactive metformin ER 500 mg tablet,extended release 24 hr RxNorm: 86 0975 1 Tablet(s) PO QD 08/10/2017 02/14/2018 Inactive Synthroid 112 mcg tablet RxNorm: 758626 1 Tablet(s) PO QD 08/10/2017 04/15/2018 Inactive oxycodone 10 mg tablet RxNorm: 6904914 1-2 Tablet(s) PO QID as n eeded for pain 07/19/2017 08/16/2017 Inactive Duragesic 100 mcg/hr transdermal patch RxNorm: 046866 2 Application TD Q48H for pain 07/19/2017 08/16/2017 Inactive Ventolin HFA 90 mcg/actuation aerosol inhaler RxNorm: 665160 2 Puff(s) INH Q4H as needed 07/12/2017 09/02/2017 Inactive Abilify 2 mg tablet RxNorm: 982892 1 Tablet(s) PO QD TA KE ONE TABLET BY MOUTH DAILY 07/06/2017 08/11/2017 Inactive gabapentin 800 mg tablet RxNorm: 387092 1 Tablet(s) PO TID 06/22/20 17 07/05/2017 Inactive Chantix Starting Month Box 0.5 mg (11)-1 mg (42) table ts in dose pack RxNorm: 381710 TAKE BY MOUTH INSTRUCTED - PER PACKAGE INSTRUCTIONS 06/0707/04/2017 Inactive Ventolin HFA 90 mcg/actuation aerosol inhaler RxNorm: 728021 2 Puff(s) INH Q4H as needed 05/26/2017 07/12/2017 Inactive Duragesic 100 mcg/hr transdermal patch RxNorm: 617894 2 Application TD Q48H for pain 05/19/2017 06/17/2017 Inactive oxycodone 10 mg tablet RxNorm: 6104564 1-2 Tablet(s) PO QID as n eeded for pain 05/19/2017 07/18/2017 Inactive Abilify 2 mg tablet RxNorm: 617863 TAKE ONE TABLET BY MOUTH DAILY 0 05/10/2017 07/05/2017 Inactive Synthroid 112 mcg tablet RxNorm: 702527 1 Tablet(s) PO QD 05/06/2017 08/10/2017 Inactive metformin ER 500 mg tablet,extended release 24 hr RxNorm: 86 0975 1 Tablet(s) PO QD 05/06/2017 08/10/2017 Inactive Topamax 100 mg tablet RxNorm: 714998 1 Tablet(s) PO QHS 05/06/2017 Inactive Premarin 0.45 mg tablet RxNorm: 121177 1 Tablet(s) PO QD 05/06/2017 0 04/15/2018 Inactive orphenadrine citrate ER 100 mg tablet,extended release RxNor m: 989427 1 Tablet(s) PO TID for muscle spasm--replaces methocarbamol 04/29/2017 Inactive oxycodone 10 mg tablet RxNorm: 3910498 1-2 Tablet(s) PO QID as n eeded for pain 04/21/2017 05/18/2017 Inactive Duragesic 100 mcg/hr transdermal patch RxNorm: 330586 2 Application TD Q48H for pain 04/21/2017 05/18/2017 Inactive fluoxetine 40 mg capsule RxNorm: 733827 Capsule(s) TAKE ONE CAPSULE BY MOUTH EVERY MORNING 04/20/2017 08/17/2017 Inactive Ventolin HFA 90 mcg/actuation aerosol inhaler RxNorm: 277179 2 Puff(s) INH Q4H as needed 04/05/2017 05/26/2017 Inactive Symbicort 160 mcg-4.5 mcg/actuation HFA aerosol inhaler RxNo rm: 9597657 2 Puff(s) INH BID 03/30/2017 04/15/2018 Inactive Spiriva with HandiHaler 18 mcg and inhalation capsules RxNor m: 608629 1 Capsule(s) INH QD USING HANDIHALER 03/30/2017 02/12/2019 Inactive Duragesic 100 mcg/hr transdermal patch RxNorm: 704584 2 Application TD Q48H for pain 03/18/2017 04/16/2017 Inactive oxycodone 10 mg tablet RxNorm: 0062650 1-2 Tablet(s) PO QID as n eeded for pain 03/18/2017 04/20/2017 Inactive metformin ER 500 mg tablet,extended release 24 hr RxNorm: 86 0975 Tablet(s) TAKE ONE TABLET BY MOUTH DAILY 03/01/2017 05/06/2017 Inactive Premarin 0.45 mg tablet RxNorm: 334416 Tablet(s) TAKE ONE TABLE T BY MOUTH DAILY 03/01/2017 05/06/2017 Inactive Synthroid 112 mcg tablet RxNorm: 078431 Tablet(s) TAKE ONE TABLET BY MOUTH DAILY 03/01/2017 05/06/2017 Inactive Daliresp 500 mcg tablet RxNorm: 6078218 1 Tablet(s) PO QD 03/01/2017 09/06/2017 Inactive 16.2 mg-0.1037 mg-0.0194 mg tablet RxNorm: 9922893 Tablet(s) PO PRN for gas and cramping 02/23/2017 04/28/2017 Inactive TAKE TWO TABLET S BY MOUTH THREE TIMES A DAY NEEDED FOR GAS AND CRAMPING gabapentin 800 mg tablet RxNorm: 157390 1 Tablet(s) PO TID repl aces 600mg 02/23/2017 04/28/2017 Inactive Duragesic 100 mcg/hr transdermal patch RxNorm: 129681 2 Application TD Q48H for pain 02/17/2017 03/17/2017 Inactive fluoxetine 20 mg capsule RxNorm: 629033 1 Capsule(s) PO QD 02/18/20 17 08/12/2017 Inactive oxycodone 20 mg tablet RxNorm: 9123429 1 Tablet(s) PO QID as nee ded for pain 02/17/2017 03/17/2017 Inactive Ventolin HFA 90 mcg/actuation aerosol inhaler RxNorm: 104372 INHALE TWO PUFFS BY MOUTH EVERY 4 HOURS NEEDED 02/15/2017 04/05/2017 Inactive Silvadene 1 % topical cream RxNorm: 979443 1 Application TOP BI D to burn area 02/01/2017 09/22/2017 Inactive Topamax 100 mg tablet RxNorm: 823311 TAKE ONE TABLET BY MOUTH EVERY NIGHT AT BEDTIME 01/29/2017 05/06/2017 Inactive Chantix Starting Month Box 0.5 mg (11)-1 mg (42) table ts in dose pack RxNorm: 324538 Tablet(s) PO as directed 01/29/2017 06/01/2017 Inactive Abilify 2 mg tablet RxNorm: 707419 TAKE ONE TABLET BY MOUTH DAILY 0 01/26/2017 04/25/2017 Inactive Chantix Starting Month Box 0.5 mg (11)-1 mg (42) table ts in dose pack RxNorm: 068689 Tablet(s) PO as directed 01/20/2017 01/28/2017 Inactive gabapentin 600 mg tablet RxNorm: 588922 1 Tablet(s) PO TID 01/21/20 17 02/22/2017 Inactive Chantix Continuing Month Box 1 mg tablet RxNorm: 439176 1 Table t(s) PO BID 12/31/2016 06/01/2017 Inactive Spiriva with HandiHaler 18 mcg and inhalation capsules RxNor m: 731798 INHALE THE ENTIRE CONTENTS OF 1 CAPSULE ONCE A DAY USING HANDIHALER 12/31/201607/2017 Inactive Synthroid 112 mcg tablet RxNorm: 015947 TAKE ONE TABLET BY MOUT H DAILY 12/30/2016 03/01/2017 Inactive metformin ER 500 mg tablet,extended release 24 hr RxNorm: 86 0975 TAKE ONE TABLET BY MOUTH DAILY 12/30/2016 03/01/2017 Inactive Premarin 0.45 mg tablet RxNorm: 663944 TAKE ONE TABLET BY MOUTH DAILY 12/30/2016 03/01/2017 Inactive omeprazole 40 mg capsule,delayed release RxNorm: 536362 TAKE ONE CAPSULE BY MOUTH DAILY 12/30/2016 01/25/2018 Inactive Ventolin HFA 90 mcg/actuation aerosol inhaler RxNorm: 824608 INHALE TWO PUFFS BY MOUTH EVERY 4 HOURS NEEDED 12/28/2016 02/13/2017 Inactive fluoxetine 40 mg capsule RxNorm: 456566 TAKE ONE CAPSULE BY BENOIT TH EVERY MORNING 12/15/2016 04/20/2017 Inactive Chantix Continuing Month Box 1 mg tablet RxNorm: 436366 TAKE ONE TABLET BY MOUTH TWICE A DAY 12/04/2016 12/31/2016 Inactive doxycycline hyclate 100 mg capsule RxNorm: 8052917 1 Capsule(s) PO BID 12/01/2016 12/07/2016 Inactive Levaquin 750 mg tablet RxNorm: 074262 1 Tablet(s) PO QD 12/01/2016 Inactive Abilify 2 mg tablet RxNorm: 420838 TAKE ONE TABLET BY MOUTH DAILY 0 11/25/2016 11/30/2016 Inactive Ventolin HFA 90 mcg/actuation aerosol inhaler RxNorm: 757264 INHALE TWO PUFFS BY MOUTH EVERY 4 HOURS NEEDED 11/02/2016 12/19/2016 Inactive Chantix Continuing Month Box 1 mg tablet RxNorm: 555542 Tablet(s) PO as directed 10/30/2016 12/03/2016 Inactive Symbicort 160 mcg-4.5 mcg/actuation HFA aerosol inhaler RxNo rm: 9739701 INHALE TWO PUFFS TWO TIMES A DAY 10/30/2016 03/30/2017 Inactive Abilify 2 mg tablet RxNorm: 129634 1 Tablet(s) PO QD 10/27/201611/24 Inactive amoxicillin 500 mg capsule RxNorm: 221345 1 Capsule(s) PO TID 10/1410/23/2016 Inactive amoxicillin 500 mg capsule RxNorm: 657452 1 Capsule(s) PO TID 10/1410/13/2016 Inactive Synthroid 112 mcg tablet RxNorm: 158533 TAKE ONE TABLET BY MOUT H DAILY 09/28/2016 12/29/2016 Inactive Topamax 100 mg tablet RxNorm: 511109 TAKE ONE TABLET BY MOUTH EVERY NIGHT AT BEDTIME 09/28/2016 01/28/2017 Inactive Premarin 0.45 mg tablet RxNorm: 385162 TAKE ONE TABLET BY MOUTH DAILY 09/28/2016 12/29/2016 Inactive metformin ER 500 mg tablet,extended release 24 hr RxNorm: 86 0975 TAKE ONE TABLET BY MOUTH DAILY 09/28/2016 12/29/2016 Inactive Ventolin HFA 90 mcg/actuation aerosol inhaler RxNorm: 632341 INHALE TWO PUFFS BY MOUTH EVERY 4 HOURS NEEDED 09/22/2016 10/23/2016 Inactive Pulmicort 1 mg/2 mL suspension for nebulization RxNorm: 6168 19 1 Unit Dose INH BID Dx: COPD (J44.9) 09/10/2016 08/16/2017 Inactive Pulmicort 1 mg/2 mL suspension for nebulization RxNorm: 6168 19 1 Unit Dose INH BID 09/10/2016 09/09/2016 Inactive Brovana 15 mcg/2 mL solution for nebulization RxNorm: 803586 1 Unit Dose INH BID Dx: COPD (J44.9) 09/10/2016 01/25/2018 Inactive Brovana 15 mcg/2 mL solution for nebulization RxNorm: 352108 1 Unit Dose INH BID 09/10/2016 09/09/2016 Inactive ipratropium-albuterol 0.5 mg-3 mg(2.5 mg base)/3 mL ne bulization soln RxNorm: 7232708 1 Unit Dose INH Q4H as needed Dx: COPD (J44.9) 09/10/2016 0 02/12/2019 Inactive orphenadrine citrate ER 100 mg tablet,extended release RxNor m: 137312 1 Tablet(s) PO BID for muscle spasm--replaces methocarbamol 09/09/2016 Inactive Chantix Continuing Month Box 1 mg tablet RxNorm: 115259 Tablet(s) PO as directed 09/09/2016 10/30/2016 Inactive orphenadrine citrate ER 100 mg tablet,extended release RxNor m: 868082 1 Tablet(s) PO BID for muscle spasm 09/09/2016 09/08/2016 Inactive Spiriva with HandiHaler 18 mcg and inhalation capsules RxNor m: 192376 INHALE THE ENTIRE CONTENTS OF 1 CAPSULE ONCE A DAY USING HANDIHALER 09/01/201605/2017 Inactive Daliresp 500 mcg tablet RxNorm: 6353135 1 Tablet(s) PO QD 08/27/2016 03/01/2017 Inactive prednisone 20 mg tablet RxNorm: 489637 3 Tablet(s) PO T ID for 3 days then 1 po BID for 3 days then one daily for 3 days 08/26/2016 04/28/2017 Inactiv e Wellbutrin XL 300 mg 24 hr tablet, extended release RxNorm: 507902 TAKE ONE TABLET BY MOUTH EVERY MORNING 07/29/2016 10/26/2016 Inactive gabapentin 600 mg tablet RxNorm: 746664 1 Tablet(s) PO BID 06/26/20 16 12/22/2016 Inactive fluoxetine 40 mg capsule RxNorm: 864143 TAKE ONE CAPSULE BY BENOIT TH EVERY MORNING 06/24/2016 11/20/2016 Inactive Duragesic 100 mcg/hr transdermal patch RxNorm: 522550 2 Application TD Q48H for pain 06/05/2016 07/04/2016 Inactive oxycodone 10 mg tablet RxNorm: 2222955 1-2 Tablet(s) PO QID as n eeded for pain 06/05/2016 03/17/2017 Inactive Belladonna-Phenobarbital 48 mg tablet,extended release RxNor m: 2 Tablet(s) PO TID 06/05/2016 01/19/2017 Inactive Premarin 0.45 mg tablet RxNorm: 579608 TAKE ONE TABLET BY MOUTH DAILY 05/27/2016 09/23/2016 Inactive Topamax 100 mg tablet RxNorm: 603138 TAKE ONE TABLET BY MOUTH EVERY NIGHT AT BEDTIME 05/27/2016 09/27/2016 Inactive Synthroid 112 mcg tablet RxNorm: 228901 TAKE ONE TABLET BY MOUT H DAILY 05/27/2016 09/23/2016 Inactive metformin ER 500 mg tablet,extended release 24 hr RxNorm: 86 0975 TAKE ONE TABLET BY MOUTH DAILY 05/27/2016 09/23/2016 Inactive Symbicort 160 mcg-4.5 mcg/actuation HFA aerosol inhaler RxNo rm: 6031754 INHALE TWO PUFFS TWO TIMES A DAY 05/27/2016 10/23/2016 Inactive Ventolin HFA 90 mcg/actuation aerosol inhaler RxNorm: 097031 INHALE TWO PUFFS BY MOUTH EVERY 4 HOURS NEEDED 05/21/2016 07/07/2016 Inactive omeprazole 40 mg capsule,delayed release RxNorm: 603794 1 Capsu le(s) PO QD 05/06/2016 08/03/2016 Inactive metformin ER 500 mg tablet,extended release 24 hr RxNorm: 86 0975 TAKE ONE TABLET BY MOUTH DAILY 04/23/2016 05/22/2016 Inactive methocarbamol 750 mg tablet RxNorm: 605216 2 Tablet(s) PO TID as needed for muscle spasm 04/23/2016 09/08/2016 Inactive Synthroid 112 mcg tablet RxNorm: 998413 TAKE ONE TABLET BY MOUT H DAILY 04/23/2016 05/22/2016 Inactive Spiriva with HandiHaler 18 mcg and inhalation capsules RxNor m: 401924 INHALE THE ENTIRE CONTENTS OF 1 CAPSULE ONCE A DAY USING HANDIHALER 04/09/201608/2016 Inactive Diflucan 100 mg tablet RxNorm: 291302 1 Tablet(s) PO QD 04/08/2016 Inactive doxycycline hyclate 100 mg capsule RxNorm: 4618995 1 Capsule(s) PO BID 04/08/2016 04/17/2016 Inactive doxycycline hyclate 100 mg capsule RxNorm: 3477084 1 Capsule(s) PO BID 04/08/2016 04/07/2016 Inactive Diflucan 100 mg tablet RxNorm: 615890 1 Tablet(s) PO QD 04/08/2016 Inactive ondansetron HCl 4 mg tablet RxNorm: 454312 1 Tablet(s) PO Q4H as needed for nausea and vomiting 04/08/2016 09/22/2017 Inactive gabapentin 600 mg tablet RxNorm: 408227 TAKE ONE TABLET BY MOUT H TWICE A DAY 03/24/2016 06/25/2016 Inactive Synthroid 112 mcg tablet RxNorm: 411788 TAKE ONE TABLET BY MOUT H DAILY 02/25/2016 04/22/2016 Inactive Levaquin 500 mg tablet RxNorm: 623137 1 Tablet(s) PO QD 01/23/2016 Inactive prednisone 20 mg tablet RxNorm: 306600 1 Tablet(s) PO T ID for 3 days then 1 po BID for 3 days then one daily for 3 days 01/23/2016 08/25/2016 Inactiv e Boost Media Ultra Test strips RxNorm: TEST BLOOD SUGAR ONCE DAILY 250.00 01/09/2016 11/04/2017 Inactive methocarbamol 750 mg tablet RxNorm: 928375 2 Tablet(s) PO TID as needed for muscle spasm 01/09/2016 04/23/2016 Inactive lactulose 10 gram/15 mL oral solution RxNorm: 586844 [address](s) PO QD 01/09/2016 09/22/2017 Inactive TAKE 1 TABLESPOON BY MOUTH ONCE DAILY metformin ER 500 mg tablet,extended release 24 hr RxNorm: 86 0975 1 Tablet(s) PO QD 12/26/2015 04/22/2016 Inactive fluoxetine 20 mg capsule RxNorm: 268365 1 Capsule(s) PO QD 12/23/19 16 06/19/2016 Inactive Premarin 0.45 mg tablet RxNorm: 610896 TAKE ONE TABLET BY MOUTH DAILY 12/23/2015 05/20/2016 Inactive fluoxetine 40 mg capsule RxNorm: 536013 1 Capsule(s) PO QD 12/23/19 16 06/19/2016 Inactive TAKE ONE CAPSULE BY MOUTH EV JANKI MORNING azithromycin 500 mg tablet RxNorm: 454476 1 Tablet(s) PO QD 016 12/19/2015 Inactive Zofran 4 mg tablet RxNorm: 964631 1 Tablet(s) PO Q4H prn nausea /vomiting 12/13/2015 03/30/2018 Inactive azithromycin 500 mg tablet RxNorm: 771577 1 Tablet(s) PO QD 016 12/12/2015 Inactive Duragesic 100 mcg/hr transdermal patch RxNorm: 878229 2 Application TD Q48H for pain 12/09/2015 01/07/2016 Inactive oxycodone 10 mg tablet RxNorm: 3579047 1-2 Tablet(s) PO QID as n eeded for pain 12/09/2015 06/04/2016 Inactive Bactroban 2 % topical cream RxNorm: 807628 Application TOP BID 11/2208/25/2016 Inactive doxycycline hyclate 100 mg capsule RxNorm: 5460982 1 Capsule(s) PO BID 12/03/2015 12/12/2015 Inactive Topamax 100 mg tablet RxNorm: 547791 TAKE ONE TABLET BY MOUTH EVERY NIGHT AT BEDTIME 11/25/2015 05/22/2016 Inactive Symbicort 160 mcg-4.5 mcg/actuation HFA aerosol inhaler RxNo rm: 6427042 INHALE TWO PUFFS TWO TIMES A DAY 11/25/2015 05/22/2016 Inactive Synthroid 112 mcg tablet RxNorm: 784492 Tablet(s) TAKE ONE TABLET BY MOUTH DAILY 11/25/2015 02/22/2016 Inactive omeprazole 40 mg capsule,delayed release RxNorm: 913019 1 Capsu le(s) PO QD 11/12/2015 05/05/2016 Inactive oxycodone 10 mg tablet RxNorm: 7670445 1-2 Tablet(s) PO QID as n eeded for pain 11/05/2015 12/08/2015 Inactive Duragesic 100 mcg/hr transdermal patch RxNorm: 670275 2 Application TD Q48H for pain 11/05/2015 12/04/2015 Inactive omeprazole 40 mg capsule,delayed release RxNorm: 417576 1 Capsu le(s) PO QD 10/07/2015 11/11/2015 Inactive Januvia 100 mg tablet RxNorm: 508246 TAKE ONE TABLET BY MOUTH DAILY 09/11/2015 12/25/2015 Inactive Zithromax 500 mg tablet RxNorm: 476606 1 Tablet(s) PO QD 09/10/2015 1 Inactive prednisone 20 mg tablet RxNorm: 992525 1 Tablet(s) PO T ID for 3 days then 1 po BID for 3 days then one daily for 3 days 09/10/2015 08/25/2016 Inactiv e Wellbutrin XL 300 mg 24 hr tablet, extended release RxNorm: 522013 1 Tablet(s) PO QAM 09/10/2015 12/02/2015 Inactive Topamax 100 mg tablet RxNorm: 570046 TAKE ONE TABLET BY MOUTH EVERY NIGHT AT BEDTIME 09/02/2015 11/24/2015 Inactive Synthroid 112 mcg tablet RxNorm: 096805 TAKE ONE TABLET BY MOUT H DAILY 09/02/2015 11/25/2015 Inactive methocarbamol 750 mg tablet RxNorm: 732238 2 Tablet(s) PO TID as needed for muscle spasm 08/15/2015 01/09/2016 Inactive Wellbutrin XL 150 mg 24 hr tablet, extended release RxNorm: 647626 TAKE ONE TABLET BY MOUTH EVERY MORNING 08/13/2015 08/13/2015 Inactive gabapentin 600 mg tablet RxNorm: 818381 1 Tablet(s) PO BID 08/13/20 15 02/08/2016 Inactive Wellbutrin XL 300 mg 24 hr tablet, extended release RxNorm: 941845 1 Tablet(s) PO QAM 08/06/2015 09/09/2015 Inactive Wellbutrin XL 150 mg 24 hr tablet, extended release RxNorm: 676936 1 Tablet(s) PO QAM 07/18/2015 08/05/2015 Inactive prednisone 20 mg tablet RxNorm: 010227 1 Tablet(s) PO BID 07/18/2015 07/22/2015 Inactive doxycycline hyclate 100 mg tablet,delayed release RxNorm: 43 4018 1 Tablet(s) PO BID 07/18/2015 07/27/2015 Inactive pravastatin 40 mg tablet RxNorm: 201919 1 Tablet(s) PO QD NEEDS FASTING LAB 07/15/2015 07/14/2015 Inactive pravastatin 40 mg tablet RxNorm: 618633 1 Tablet(s) PO QD NEEDS FASTING LAB 07/15/2015 01/25/2018 Inactive Ventolin HFA 90 mcg/actuation aerosol inhaler RxNorm: 334329 2 Puff(s) INH Q4H 07/08/2015 07/07/2015 Inactive prn Premarin 0.45 mg tablet RxNorm: 312478 1 Tablet(s) PO QD 07/01/2015 0 12/22/2015 Inactive pravastatin 40 mg tablet RxNorm: 485804 1 Tablet(s) PO QD NEEDS FASTING LAB 06/14/2015 07/15/2015 Inactive Ventolin HFA 90 mcg/actuation aerosol inhaler RxNorm: 1312614 2 Puff(s) INH Q4H 06/06/2015 07/08/2015 Inactive prn albuterol sulfate 2.5 mg/3 mL (0.083 %) solution for n ebulization RxNorm: 192580 1 Unit Dose INH QID 05/30/2015 No Stop Date Active Duragesic 100 mcg/hr transdermal patch RxNorm: 584552 2 Application TD Q48H for pain 04/29/2015 05/28/2015 Inactive gabapentin 600 mg tablet RxNorm: 806935 1 Tablet(s) PO BID 04/11/20 15 08/13/2015 Inactive Onglyza 5 mg tablet RxNorm: 391953 1 Tablet(s) PO QD for blood suga r 04/10/2015 04/15/2015 Inactive [Brand Copay Card: RxBIN:[id number] PCN: RxGRP:[id number] ID#:[id number]] methocarbamol 750 mg tablet RxNorm: 480612 2 Tablet(s) PO TID as needed for muscle spasm 03/28/2015 08/15/2015 Inactive pravastatin 40 mg tablet RxNorm: 901980 1 Tablet(s) PO QD 03/19/2015 03/18/2015 Inactive pravastatin 40 mg tablet RxNorm: 771880 1 Tablet(s) PO QD 03/19/2015 06/14/2015 Inactive lactulose 10 gram/15 mL oral solution RxNorm: 955983 [address]s) PO QD 03/07/2015 01/09/2016 Inactive TAKE 1 TABLESPOON BY MOUTH ONCE DAILY oxycodone 20 mg tablet RxNorm: 8266049 1 Tablet(s) PO QID as nee ded for pain 03/05/2015 07/08/2015 Inactive Topamax 100 mg tablet RxNorm: 640746 1 Tablet(s) PO QHS TAKE ONE TABLET BY MOUTH AT BEDTIME 02/25/2015 02/12/2019 Inactive metformin ER 500 mg tablet,extended release 24 hr RxNorm: 86 0975 1 Tablet(s) PO QD 02/11/2015 03/04/2015 Inactive take one tablet by mouth every day Daliresp 500 mcg tablet RxNorm: 9021965 1 Tablet(s) PO QD 02/11/2015 08/09/2015 Inactive Endocet 10 mg-325 mg tablet RxNorm: 2041005 1 Tablet(s) PO Q4H as needed for pain 01/23/2015 01/23/2015 Inactive gabapentin 600 mg tablet RxNorm: 431143 1 Tablet(s) PO BID 01/23/20 15 04/11/2015 Inactive methocarbamol 750 mg tablet RxNorm: 488652 2 Tablet(s) PO TID as needed for muscle spasm 01/15/2015 02/13/2015 Inactive fluoxetine 40 mg capsule RxNorm: 682037 1 Capsule(s) PO QD 01/14/20 15 12/23/2015 Inactive TAKE ONE CAPSULE BY MOUTH EV JANKI MORNING fluoxetine 20 mg capsule RxNorm: 147203 1 Capsule(s) PO QD 01/14/20 15 12/23/2015 Inactive Premarin 0.45 mg tablet RxNorm: 107469 1 Tablet(s) PO QD 01/02/2015 0 07/01/2015 Inactive Endocet 10 mg-325 mg tablet RxNorm: 0577750 1-2 Tablet(s) PO Q4H 02/12/2019 Inactive PRN PAIN Duragesic 100 mcg/hr transdermal patch RxNorm: 017090 2 Application TD Q48H for pain 12/25/2014 01/23/2015 Inactive Topamax 100 mg tablet RxNorm: 030735 1 Tablet(s) PO QHS TAKE ONE TABLET BY MOUTH AT BEDTIME 12/25/2014 02/24/2015 Inactive Tudorza Pressair 400 mcg/actuation breath activated RxNorm: 8717468 1 BID INHALE ONE PUFF INTO LUNGS TWO TIMES A DAY 12/17/2014 05/15/2015 Inactive Endocet 10 mg-325 mg tablet RxNorm: 0219247 1-2 Tablet(s) PO Q4H 12/19/2014 Inactive PRN PAIN Duragesic 100 mcg/hr transdermal patch RxNorm: 634402 2 Application TD Q48H for pain 11/20/2014 12/24/2014 Inactive JelasticTouch Ultra Test strips RxNorm: TEST BLOOD SUGAR ONCE DAILY 250.00 11/16/2014 01/08/2016 Inactive omeprazole 40 mg capsule,delayed release RxNorm: 982599 1 Capsu le(s) PO QD 11/13/2014 11/12/2015 Inactive metformin ER 500 mg tablet,extended release 24 hr RxNorm: 86 0975 1 Tablet(s) PO QD 11/12/2014 02/11/2015 Inactive take one tablet by mouth every day Symbicort 160 mcg-4.5 mcg/actuation HFA aerosol inhaler RxNo rm: 4357192 2 Puff(s) INH BID 11/12/2014 03/11/2015 Inactive INHALE 2 PUFFS O RALLY TWO TIMES A DAY gabapentin 800 mg tablet RxNorm: 761004 1 Tablet(s) PO QD TAKE ONE TABLET BY MOUTH ONCE A DAY 10/22/2014 01/01/2015 Inactive Endocet 10 mg-325 mg tablet RxNorm: 0427176 1-2 Tablet(s) PO Q4H 11/15/2014 Inactive PRN PAIN Duragesic 100 mcg/hr transdermal patch RxNorm: 676610 2 Application TD Q48H for pain 10/17/2014 11/19/2014 Inactive gabapentin 800 mg tablet RxNorm: 715007 1 Tablet(s) PO QD TAKE ONE TABLET BY MOUTH ONCE A DAY 10/04/2014 10/21/2014 Inactive Premarin 0.9 mg tablet RxNorm: 410540 1 Tablet(s) PO QD TAKE ONE TABLET BY MOUTH ONCE A DAY 10/04/2014 01/01/2015 Inactive Spiriva with HandiHaler 18 mcg & inhalation capsules RxNorm: 513504 1 Capsule(s) INH QD 10/03/2014 04/30/2015 Inactive Levaquin 500 mg tablet RxNorm: 208650 1 Tablet(s) PO QD 10/03/2014 Inactive prednisone 20 mg tablet RxNorm: 042143 1 Tablet(s) PO QD 10/03/2014 1 12/09/2013 Inactive Duragesic 100 mcg/hr transdermal patch RxNorm: 748414 2 Application TD Q48H for pain 09/18/2014 10/16/2014 Inactive Endocet 10 mg-325 mg tablet RxNorm: 7354253 1-2 Tablet(s) PO Q4H 10/16/2014 Inactive PRN PAIN Synthroid 112 mcg tablet RxNorm: 302325 1 Tablet(s) QD 09/10/2014 Inactive Synthroid 112 mcg tablet RxNorm: 832551 TAKE ONE TABLET BY MOUTH ONE TIME A DAY. NEEDS LABS 09/10/2014 02/06/2015 Inactive omeprazole 40 mg capsule,delayed release RxNorm: 189339 1 Capsu le(s) PO QD 09/03/2014 11/13/2014 Inactive omeprazole 40 mg capsule,delayed release RxNorm: 987281 1 Capsu le(s) PO QD 09/03/2014 09/02/2014 Inactive Spiriva with HandiHaler 18 mcg & inhalation capsules RxNorm: 425080 1 Capsule(s) INH QD 08/27/2014 10/02/2014 Inactive gabapentin 600 mg tablet RxNorm: 957911 1 Tablet(s) PO BID 08/27/20 14 10/22/2014 Inactive Endocet 10 mg-325 mg tablet RxNorm: 2312263 1-2 Tablet(s) PO Q4H 09/17/2014 Inactive PRN PAIN fentanyl 100 mcg/hr transdermal patch RxNorm: 667179 1 Unit Dos e TD QD 08/21/2014 09/19/2014 Inactive Daliresp 500 mcg tablet RxNorm: 3778852 1 Tablet(s) PO QD 08/13/2014 02/11/2015 Inactive Synthroid 112 mcg tablet RxNorm: 559971 TAKE ONE TABLET BY MOUTH ONE TIME A DAY. NEEDS LABS 08/10/2014 09/10/2014 Inactive Endocet 10 mg-325 mg tablet RxNorm: 8812540 1-2 Tablet(s) PO Q4H 08/17/2014 Inactive PRN PAIN Duragesic 100 mcg/hr transdermal patch RxNorm: 340350 2 Application TD Q48H for pain 07/19/2014 09/17/2014 Inactive fluoxetine 40 mg capsule RxNorm: 989072 1 Capsule(s) PO QD 07/17/20 14 01/14/2015 Inactive TAKE ONE CAPSULE BY MOUTH EV JANKI MORNING fluoxetine 20 mg capsule RxNorm: 455297 1 Capsule(s) PO QD 07/17/20 14 01/14/2015 Inactive Spiriva with HandiHaler 18 mcg & inhalation capsules RxNorm: 403264 1 Capsule(s) INH QD 07/17/2014 08/26/2014 Inactive INHALE CONTENTS OF 1 CAPSULE(S) WITH HANDIHALER ONCE DAILY Zofran 4 mg tablet RxNorm: 459456 1 Tablet(s) PO Q4H prn nausea 07/25/2014 Inactive Synthroid 112 mcg tablet RxNorm: 554171 1 Tablet(s) PO QD 07/09/2014 07/09/2014 Inactive methocarbamol 750 mg tablet RxNorm: 779356 2 Tablet(s) PO TID as needed for muscle spasm 07/09/2014 09/06/2014 Inactive Synthroid 112 mcg tablet RxNorm: 184745 1 Tablet(s) PO QD - [facility] 07/09/2014 08/07/2014 Inactive Medrol (Aníbal) 4 mg tablets in a dose pack RxNorm: 166110 6 Tablet(s) PO QD --then as directed 07/03/2014 07/08/2014 Inactive Tudorza Pressair 400 mcg/actuation breath activated RxNorm: 8169444 1 Puff(s) INH BID 07/03/2014 12/17/2014 Inactive cefdinir 300 mg capsule RxNorm: 341762 1 Capsule(s) PO BID 07/03/20 14 07/12/2014 Inactive Topamax 100 mg tablet RxNorm: 442616 Tablet(s) TAKE ONE TABLET BY MOUTH AT BEDTIME 07/02/2014 02/25/2015 Inactive Duragesic 100 mcg/hr transdermal patch RxNorm: 027449 2 Application TD Q48H for pain 06/25/2014 07/18/2014 Inactive Endocet 10 mg-325 mg tablet RxNorm: 2337427 1-2 Tablet(s) PO Q4H 07/18/2014 Inactive PRN PAIN metformin ER 500 mg tablet,extended release 24 hr RxNorm: 86 0975 1 Tablet(s) PO QD Needs labs 06/18/2014 07/01/2014 Inactive take one tablet by mouth every day Duragesic 100 mcg/hr transdermal patch RxNorm: 133578 2 Application TD Q48H for pain 05/22/2014 06/24/2014 Inactive Synthroid 112 mcg tablet RxNorm: 279109 1 Tablet(s) PO QD 05/22/2014 07/09/2014 Inactive Endocet 10 mg-325 mg tablet RxNorm: 1877592 1-2 Tablet(s) PO Q4H 06/20/2014 Inactive PRN PAIN Endocet 10 mg-325 mg tablet RxNorm: 9910415 1-2 Tablet(s) PO Q4H 05/21/2014 Inactive PRN PAIN Duragesic 100 mcg/hr transdermal patch RxNorm: 949966 2 Application TD Q48H for pain 04/25/2014 05/21/2014 Inactive Daliresp 500 mcg tablet RxNorm: 3355113 1 Tablet(s) PO QD 04/24/2014 08/13/2014 Inactive Symbicort 160 mcg-4.5 mcg/actuation HFA aerosol inhaler RxNo rm: 9180233 2 Puff(s) INH BID 04/24/2014 08/21/2014 Inactive INHALE 2 PUFFS O RALLY TWO TIMES A DAY metformin ER 500 mg tablet,extended release 24 hr RxNorm: 86 0975 1 Tablet(s) PO QD 04/24/2014 11/12/2014 Inactive TAKE ONE TABLET BY MOUTH EVERY DAY [AttnRPh:Saving Apply/Adjudicate RxGRP:LDMGRP RxBIN:[id number] RxPCN:2012 PCode:01 ID#:[id number]] Symbicort 160 mcg-4.5 mcg/actuation HFA aerosol inhaler RxNo rm: 3688561 2 Puff(s) INH BID 04/24/2014 11/12/2014 Inactive INHALE 2 PUFFS O RALLY TWO TIMES A DAY Premarin 0.9 mg tablet RxNorm: 287557 1 Tablet(s) PO QD 04/24/2014 Inactive TAKE ONE TABLET BY MOUTH EVERY DAY metformin ER 500 mg tablet,extended release 24 hr RxNorm: 86 0975 1 Tablet(s) PO QD Needs labs 04/24/2014 06/18/2014 Inactive TAKE ONE TABLET BY MOUTH EVERY DAY [AttnRPh:Saving Apply/Adjudicate RxGRP:LDMGRP RxBIN:[id number] RxPCN:2012 PCode:01 ID#:[id number]] gabapentin 800 mg tablet RxNorm: 030472 1 Tablet(s) PO QD 04/24/2014 10/04/2014 Inactive TAKE ONE TABLET BY MOUTH EVERY DAY Topamax 100 mg tablet RxNorm: 329603 1 Tablet(s) PO QHS 04/17/2014 Inactive Topamax 100 mg tablet RxNorm: 678169 TAKE ONE TABLET BY MOUTH A T BEDTIME 04/17/2014 07/01/2014 Inactive Tudorza Pressair 400 mcg/actuation breath activated RxNorm: 1689238 1 Puff(s) INH BID 04/11/2014 07/02/2014 Inactive Duragesic 100 mcg/hr transdermal patch RxNorm: 994761 2 Application TD Q48H for pain 03/27/2014 04/24/2014 Inactive Endocet 10 mg-325 mg tablet RxNorm: 9833795 1-2 Tablet(s) PO Q4H 04/24/2014 Inactive PRN PAIN Robaxin 750 mg tablet RxNorm: 976631 2 Tablet(s) PO TID as need ed for spasm 02/23/2014 03/28/2015 Inactive Duragesic 100 mcg/hr transdermal patch RxNorm: 591212 2 Application TD Q48H for pain 02/23/2014 No Stop Date Active Endocet 10 mg-325 mg tablet RxNorm: 6814332 1-2 Tablet(s) PO Q4H 03/23/2014 Inactive PRN PAIN Synthroid 112 mcg tablet RxNorm: 692774 1 Tablet(s) PO QD TAKE ONE TABLET BY MOUTH EVERY DAY 02/15/2014 05/22/2014 Inactive Zithromax 500 mg tablet RxNorm: 692027 1 Tablet(s) PO QD 01/30/2014 0 02/05/2014 Inactive Diflucan 100 mg tablet RxNorm: 940643 1 Tablet(s) PO QD 01/30/2014 Inactive prednisone 20 mg tablet RxNorm: 978602 1 Tablet(s) PO BID 01/30/2014 02/05/2014 Inactive fluoxetine 40 mg capsule RxNorm: 167702 1 Capsule(s) PO QD 01/23/20 14 07/16/2014 Inactive TAKE ONE CAPSULE BY MOUTH EV JANKI MORNING fluoxetine 40 mg capsule RxNorm: 747265 1 Capsule(s) PO QD 01/23/20 14 07/17/2014 Inactive TAKE ONE CAPSULE BY MOUTH EV JANKI MORNING cefdinir 300 mg capsule RxNorm: 952700 1 Capsule(s) PO BID 01/16/20 14 01/29/2014 Inactive Zithromax 500 mg tablet RxNorm: 866823 1 Tablet(s) PO QD 01/16/2014 0 01/22/2014 Inactive prednisone 20 mg tablet RxNorm: 049073 1 Tablet(s) PO BID 01/16/2014 01/22/2014 Inactive Spiriva with HandiHaler 18 mcg and inhalation capsules RxNor m: 313857 1 Capsule(s) INH QD 12/18/2013 07/17/2014 Inactive INHALE CONTENT S OF 1 CAPSULE(S) WITH HANDIHALER ONCE DAILY fluoxetine 20 mg capsule RxNorm: 494308 1 Capsule(s) PO QD 12/18/19 14 06/15/2014 Inactive Spiriva with HandiHaler 18 mcg & inhalation capsules RxNorm: 233124 1 Capsule(s) INH QD 12/18/2013 06/15/2014 Inactive INHALE CONTENTS OF 1 CAPSULE(S) WITH HANDIHALER ONCE DAILY fluoxetine 20 mg capsule RxNorm: 805462 1 Capsule(s) PO QD 12/18/19 14 07/17/2014 Inactive cefdinir 300 mg capsule RxNorm: 501627 2 Capsule(s) PO QD 12/12/2013 12/21/2013 Inactive Duragesic 100 mcg/hr transdermal patch RxNorm: 770655 2 Application TD Q48H for pain 12/08/2013 12/07/2013 Inactive Topamax 100 mg tablet RxNorm: 353929 1 Tablet(s) PO QHS 12/04/2013 Inactive Endocet 10 mg-325 mg tablet RxNorm: 4666417 1-2 Tablet(s) PO Q4H 12/26/2013 Inactive PRN PAIN Robaxin 750 mg tablet RxNorm: 027454 2 Tablet(s) PO TID as need ed for spasm 11/07/2013 01/05/2014 Inactive gabapentin 800 mg tablet RxNorm: 023303 1 Tablet(s) PO QD 10/16/2013 04/24/2014 Inactive TAKE ONE TABLET BY MOUTH EVERY DAY Symbicort 160 mcg-4.5 mcg/actuation HFA aerosol inhaler RxNo rm: 7667245 2 Puff(s) INH BID 10/16/2013 04/24/2014 Inactive INHALE 2 PUFFS O RALLY TWO TIMES A DAY Premarin 0.9 mg tablet RxNorm: 945349 1 Tablet(s) PO QD 10/16/2013 Inactive TAKE ONE TABLET BY MOUTH EVERY DAY metformin ER 500 mg tablet,extended release 24 hr RxNorm: 86 0975 1 Tablet(s) PO QD 10/16/2013 04/24/2014 Inactive TAKE ONE TABLET BY MOUTH EVERY DAY Daliresp 500 mcg tablet RxNorm: 3923492 1 Tablet(s) PO QD 10/16/2013 04/24/2014 Inactive Robaxin 750 mg tablet RxNorm: 791941 2 Tablet(s) PO TID as need ed for spasm 10/10/2013 11/06/2013 Inactive Duragesic 100 mcg/hr transdermal patch RxNorm: 366325 2 Application TD Q48H for pain 10/09/2013 No Stop Date Active Soma 350 mg tablet RxNorm: 291805 1 Tablet(s) PO TID 09/27/201310/09 Inactive TAKE ONE TABLET BY MOUTH THREE TIMES A D AY lactulose 10 gram/15 mL oral solution RxNorm: 154024 [address](s) PO QD 09/13/2013 03/07/2015 Inactive TAKE 1 TABLESPOON BY MOUTH ONCE DAILY Duragesic 100 mcg/hr transdermal patch RxNorm: 989250 2 Application TD Q48H for pain 09/06/2013 No Stop Date Active Endocet 10 mg-325 mg tablet RxNorm: 6007173 1-2 Tablet(s) PO Q4H 09/27/2013 Inactive PRN PAIN lancets 28 gauge RxNorm: Miscellaneous As needed for blo od glucose sticks 08/24/2013 No Stop Date Active 16.2 mg-0.1037 mg-0.0194 mg tablet RxNorm: 3432106 Tablet(s) PO PRN for gas and cramping 08/24/2013 01/19/2017 Inactive TAKE TWO TABLET S BY MOUTH THREE TIMES A DAY NEEDED FOR GAS AND CRAMPING Topamax 100 mg tablet RxNorm: 907346 1 Tablet(s) PO QHS 07/31/2013 Inactive Diflucan 100 mg tablet RxNorm: 754182 1 Tablet(s) PO QD 07/27/2013 Inactive cefdinir 300 mg capsule RxNorm: 838390 1 Capsule(s) PO BID 07/26/20 13 08/08/2013 Inactive Daliresp 500 mcg tablet RxNorm: 0629010 1 Tablet(s) PO QD 07/25/2013 10/15/2013 Inactive fluoxetine 40 mg capsule RxNorm: 572156 1 Capsule(s) PO QD 07/25/20 13 01/22/2014 Inactive TAKE ONE CAPSULE BY MOUTH EV JANKI MORNING Senokot-S 8.6 mg-50 mg tablet RxNorm: 8166448 1 Tablet(s) PO BID 10/25/2013 Inactive doxycycline hyclate 100 mg capsule RxNorm: 1132081 1 Capsule(s) PO BID 06/28/2013 07/07/2013 Inactive prednisone 20 mg tablet RxNorm: 220576 1 Tablet(s) PO BID 06/28/2013 07/04/2013 Inactive Zofran 4 mg tablet RxNorm: 670968 1 Tablet(s) PO Q4H prn nausea 03/201307/05/2013 Inactive Spiriva with HandiHaler 18 mcg & inhalation capsules RxNorm: 502082 1 Capsule(s) INH QD 06/26/2013 12/18/2013 Inactive INHALE CONTENTS OF 1 CAPSULE(S) WITH HANDIHALER ONCE DAILY Synthroid 112 mcg tablet RxNorm: 375542 1 Tablet(s) PO QD TAKE ONE TABLET BY MOUTH EVERY DAY 06/19/2013 02/15/2014 Inactive fluoxetine 20 mg capsule RxNorm: 337892 1 Capsule(s) PO QD 06/19/20 13 12/18/2013 Inactive Ventolin HFA 90 mcg/actuation Aerosol Inhaler RxNorm: 7294088 2 Puff(s) INH Q4H 06/05/2013 No Stop Date Active prn Soma 350 mg tablet RxNorm: 165993 1 Tablet(s) PO TID 06/05/201307/04 Inactive TAKE ONE TABLET BY MOUTH THREE TIMES A D AY prednisone 20 mg tablet RxNorm: 124491 1 Tablet(s) PO QD 05/31/2013 0 06/06/2013 Inactive Topamax 100 mg tablet RxNorm: 397833 1 Tablet(s) PO QHS 05/22/2013 Inactive Levaquin 500 mg tablet RxNorm: 725577 1 Tablet(s) PO QD 05/03/2013 Inactive Diflucan 100 mg tablet RxNorm: 590113 1 Tablet(s) PO QD 05/03/2013 Inactive Daliresp 500 mcg tablet RxNorm: 1423552 1 Tablet(s) PO QD 05/01/2013 07/24/2013 Inactive Daliresp 500 mcg tablet RxNorm: 9802870 1 Tablet(s) PO QD 05/01/2013 04/30/2013 Inactive gabapentin 800 mg tablet RxNorm: 197737 1 Tablet(s) PO QD 04/10/2013 10/06/2013 Inactive TAKE ONE TABLET BY MOUTH EVERY DAY metformin ER 500 mg tablet,extended release 24 hr RxNorm: 86 0977 1 Tablet(s) PO QD 04/10/2013 10/06/2013 Inactive TAKE ONE TABLET BY MOUTH EVERY DAY Premarin 0.9 mg tablet RxNorm: 220307 1 Tablet(s) PO QD 04/10/2013 Inactive TAKE ONE TABLET BY MOUTH EVERY DAY Symbicort 160 mcg-4.5 mcg/actuation HFA aerosol inhaler RxNo rm: 5443690 2 Puff(s) INH BID 04/10/2013 10/06/2013 Inactive INHALE 2 PUFFS O RALLY TWO TIMES A DAY Synthroid 112 mcg tablet RxNorm: 508745 1 Tablet(s) PO QD TAKE ONE TABLET BY MOUTH EVERY DAY 04/10/2013 06/18/2013 Inactive Ventolin HFA 90 mcg/actuation Aerosol Inhaler RxNorm: 778354 2 Puff(s) INH Q4H 04/10/2013 No Stop Date Active prn fentanyl 100 mcg/hr transdermal patch RxNorm: 694747 1 Unit Dos e TD QD 04/03/2013 05/02/2013 Inactive Endocet 10 mg-325 mg tablet RxNorm: 2069812 1-2 Tablet(s) PO Q4H 05/02/2013 Inactive PRN PAIN Topamax 100 mg tablet RxNorm: 381741 1 Tablet(s) PO QHS 03/13/2013 Inactive Reglan 10 mg tablet RxNorm: 513861 1 Tablet(s) PO QID b efore meals and at bedtime 03/13/2013 04/09/2015 Inactive fluoxetine 20 mg capsule RxNorm: 534053 1 Capsule(s) PO QD 02/28/20 13 05/27/2013 Inactive Ventolin HFA 90 mcg/actuation Aerosol Inhaler RxNorm: 951260 2 Puff(s) INH Q4H 02/13/2013 No Stop Date Active prn fluoxetine 40 mg capsule RxNorm: 454974 1 Capsule(s) PO QD 01/31/20 13 07/24/2013 Inactive TAKE ONE CAPSULE BY MOUTH EV JANKI MORNING Soma 350 mg tablet RxNorm: 757182 1 Tablet(s) PO TID 01/20/201302/18 Inactive TAKE ONE TABLET BY MOUTH THREE TIMES A D AY Endocet 10 mg-325 mg tablet RxNorm: 2575120 1-2 Tablet(s) PO Q4H 02/06/2013 Inactive PRN PAIN MS Contin 200 mg tablet,extended release RxNorm: 040370 1 Table t(s) PO BID 01/18/2013 02/06/2013 Inactive Ventolin HFA 90 mcg/actuation Aerosol Inhaler RxNorm: 370290 2 Puff(s) INH Q4H 01/04/2013 No Stop Date Active prn Spiriva with HandiHaler 18 mcg & inhalation capsules RxNorm: 851266 1 Capsule(s) INH QD 12/29/2012 06/25/2013 Inactive INHALE CONTENTS OF 1 CAPSULE(S) WITH HANDIHALER ONCE DAILY Spiriva with HandiHaler 18 mcg & inhalation capsules RxNorm: 837994 1 Capsule(s) INH QD 12/26/2012 12/28/2012 Inactive INHALE CONTENTS OF 1 CAPSULE(S) WITH HANDIHALER ONCE DAILY Synthroid 112 mcg tablet RxNorm: 058651 Tablet(s) PO TA KE ONE TABLET BY MOUTH EVERY DAY 12/26/2012 04/09/2013 Inactive Endocet 10 mg-325 mg tablet RxNorm: 8454188 1-2 Tablet(s) PO Q4H 01/17/2013 Inactive PRN PAIN MS Contin 200 mg tablet,extended release RxNorm: 816488 1 Table t(s) PO BID 12/21/2012 01/17/2013 Inactive fluoxetine 20 mg capsule RxNorm: 705619 1 Capsule(s) PO QD 12/06/19 13 02/26/2013 Inactive Synthroid 112 mcg tablet RxNorm: 259743 1 Tablet(s) PO QD 12/06/2012 02/12/2019 Inactive TAKE ONE TABLET BY MOUTH EVERY DAY Ventolin HFA 90 mcg/actuation Aerosol Inhaler RxNorm: 144551 2 Puff(s) INH Q4H 12/06/2012 No Stop Date Active prn Reglan 10 mg tablet RxNorm: 598470 1 Tablet(s) PO QID b efore meals and at bedtime 11/24/2012 03/12/2013 Inactive Topamax 100 mg tablet RxNorm: 518513 1 Tablet(s) PO QHS 11/16/2012 Inactive Ventolin HFA 90 mcg/actuation Aerosol Inhaler RxNorm: 775137 2 Puff(s) INH Q4H 11/09/2012 No Stop Date Active prn gabapentin 800 mg tablet RxNorm: 408796 1 Tablet(s) PO QD 10/27/2012 04/09/2013 Inactive TAKE ONE TABLET BY MOUTH EVERY DAY metformin ER 500 mg tablet,extended release 24 hr RxNorm: 86 0977 1 Tablet(s) PO QD 10/27/2012 04/09/2013 Inactive TAKE ONE TABLET BY MOUTH EVERY DAY Symbicort 160 mcg-4.5 mcg/actuation HFA Aerosol Inhaler RxNo rm: 9171978 2 Puff(s) INH BID 10/27/2012 04/09/2013 Inactive INHALE 2 PUFFS O RALLY TWO TIMES A DAY Premarin 0.9 mg tablet RxNorm: 448379 1 Tablet(s) PO QD 10/27/2012 Inactive TAKE ONE TABLET BY MOUTH EVERY DAY Endocet 10 mg-325 mg tablet RxNorm: 2181917 1-2 Tablet(s) PO Q4H 11/24/2012 Inactive PRN PAIN MS Contin 200 mg tablet,extended release RxNorm: 734599 1 Table t(s) PO BID 10/26/2012 11/24/2012 Inactive Soma 350 mg tablet RxNorm: 870737 1 Tablet(s) PO TID 10/04/201211/02 Inactive TAKE ONE TABLET BY MOUTH THREE TIMES A D AY Ventolin HFA 90 mcg/actuation Aerosol Inhaler RxNorm: 059031 2 Puff(s) INH Q4H 10/03/2012 No Stop Date Active prn Daliresp 500 mcg tablet RxNorm: 7200255 1 Tablet(s) PO QD 09/28/2012 09/27/2012 Inactive Daliresp 500 mcg tablet RxNorm: 8585140 1 Tablet(s) PO QD 09/28/2012 04/25/2013 Inactive fluoxetine 20 mg capsule RxNorm: 832071 1 Capsule(s) PO QD 09/05/20 12 12/06/2012 Inactive Topamax 50 mg tablet RxNorm: 929378 Tablet(s) PO for 1w k then 1 po q HS for 1wk then 2 po q HS 08/29/2012 09/27/2012 Inactive TAKE 1/2 TABLET BY MOUTH AT BEDTIME FOR 1 WEEK, THEN 1 TABLET AT BEDTIME FOR 1 WEEK, THEN 2 TABLETS AT BEDTIME Topamax 100 mg tablet RxNorm: 860684 1 Tablet(s) PO QHS 08/29/2012 Inactive Ventolin HFA 90 mcg/actuation Aerosol Inhaler RxNorm: 624268 2 Puff(s) INH Q4H 08/19/2012 No Stop Date Active prn Ventolin HFA 90 mcg/actuation Aerosol Inhaler RxNorm: 005169 2 Puff(s) INH Q4H 08/15/2012 No Stop Date Active prn Synthroid 112 mcg tablet RxNorm: 442662 1 Tablet(s) PO QD 08/10/2012 11/07/2012 Inactive TAKE ONE TABLET BY MOUTH EVERY DAY Synthroid 112 mcg tablet RxNorm: 083535 1 Tablet(s) PO QD 08/01/2012 08/09/2012 Inactive TAKE ONE TABLET BY MOUTH EVERY DAY Reglan 10 mg tablet RxNorm: 244565 1 Tablet(s) PO QID b efore meals and at bedtime 08/01/2012 11/23/2012 Inactive fluoxetine 40 mg capsule RxNorm: 492025 1 Capsule(s) PO QD 08/01/2001/27/2013 Inactive TAKE ONE CAPSULE BY MOUTH EV JANKI MORNING Ventolin HFA 90 mcg/actuation Aerosol Inhaler RxNorm: 126060 2 Puff(s) INH Q4H 08/01/2012 No Stop Date Active prn Soma 350 mg tablet RxNorm: 134297 1 Tablet(s) PO TID 07/20/201208/18 Inactive TAKE ONE TABLET BY MOUTH THREE TIMES A D AY Spiriva with HandiHaler 18 mcg & inhalation capsules RxNorm: 627194 1 Capsule(s) INH 07/01/2012 12/25/2012 Inactive INHALE CONTENTS OF 1 CAPSULE(S) WITH HANDIHALER ONCE DAILY Zithromax 250 mg Tab RxNorm: 921235 2 Tablet(s) PO QD 06/28/201206/22 Inactive MS Contin 200 mg tablet,extended release RxNorm: 916799 1 Table t(s) PO BID 06/28/2012 07/27/2012 Inactive Endocet 10 mg-325 mg tablet RxNorm: 4314003 1-2 Tablet(s) PO Q4H 07/27/2012 Inactive PRN PAIN Topamax 100 mg tablet RxNorm: 383397 1 Tablet(s) PO QHS 06/28/2012 Inactive 16.2 mg-0.1037 mg-0.0194 mg tablet RxNorm: 5153719 Tablet(s) PO PRN for gas and cramping 06/08/2012 08/23/2013 Inactive TAKE TWO TABLET S BY MOUTH THREE TIMES A DAY NEEDED FOR GAS AND CRAMPING Ventolin HFA 90 mcg/actuation Aerosol Inhaler RxNorm: 045404 2 Puff(s) INH Q4H 05/23/2012 No Stop Date Active prn Ventolin HFA 90 mcg/actuation Aerosol Inhaler RxNorm: 045968 2 Puff(s) INH Q4H 05/11/2012 No Stop Date Active prn Synthroid 112 mcg tablet RxNorm: 237697 1 Tablet(s) PO QD 05/09/2012 07/31/2012 Inactive TAKE ONE TABLET BY MOUTH EVERY DAY gabapentin 800 mg tablet RxNorm: 294646 1 Tablet(s) PO QD 05/09/2012 10/26/2012 Inactive TAKE ONE TABLET BY MOUTH EVERY DAY fluoxetine 40 mg capsule RxNorm: 887023 1 Capsule(s) PO QD 05/09/2007/31/2012 Inactive TAKE ONE CAPSULE BY MOUTH EV JANKI MORNING metformin ER 500 mg tablet,extended release 24 hr RxNorm: 86 0977 1 Tablet(s) PO QD 05/09/2012 10/26/2012 Inactive TAKE ONE TABLET BY MOUTH EVERY DAY Premarin 0.9 mg tablet RxNorm: 571418 1 Tablet(s) PO QD 05/09/2012 Inactive TAKE ONE TABLET BY MOUTH EVERY DAY Symbicort 160 mcg-4.5 mcg/actuation HFA Aerosol Inhaler RxNo rm: 9357886 2 Puff(s) INH BID 05/09/2012 10/26/2012 Inactive INHALE 2 PUFFS O RALLY TWO TIMES A DAY Endocet 10 mg-325 mg Tab RxNorm: 4789064 1-2 Tablet(s) PO Q4H 04/2705/26/2012 Inactive PRN PAIN MS Contin 200 mg Tab RxNorm: 504899 1 Tablet(s) PO BID 04/26/201202/2012 Inactive Ventolin HFA 90 mcg/actuation Aerosol Inhaler RxNorm: 375443 2 Puff(s) INH Q4H 04/25/2012 05/10/2012 Inactive prn Soma 350 mg tablet RxNorm: 833392 2 Tablet(s) PO TID 04/19/201207/19 Inactive TAKE ONE TABLET BY MOUTH THREE TIMES A D AY Ventolin HFA 90 mcg/actuation Aerosol Inhaler RxNorm: 645863 2 Puff(s) INH Q4H 04/12/2012 04/24/2012 Inactive prn Reglan 10 mg tablet RxNorm: 254159 1 Tablet(s) PO QID b efore meals and at bedtime 04/11/2012 07/31/2012 Inactive MS Contin 200 mg Tab RxNorm: 252439 1 Tablet(s) PO BID 03/30/201202/2012 Inactive Endocet 10 mg-325 mg Tab RxNorm: 7323583 1-2 Tablet(s) PO Q4H 03/3004/26/2012 Inactive PRN PAIN MS Contin 200 mg Tab RxNorm: 944577 1 Tablet(s) PO BID 03/02/201206/2012 Inactive Endocet 10 mg-325 mg Tab RxNorm: 6183397 1-2 Tablet(s) PO Q4H 03/0203/29/2012 Inactive PRN PAIN Daliresp 500 mcg tablet RxNorm: 1306411 1 Tablet(s) PO QD 03/01/2012 09/28/2012 Inactive MS Contin 200 mg Tab RxNorm: 712318 1 Tablet(s) PO BID 02/02/201208/2012 Inactive Endocet 10 mg-325 mg Tab RxNorm: 6449267 1-2 Tablet(s) PO Q4H 02/0103/01/2012 Inactive PRN PAIN fluoxetine 40 mg capsule RxNorm: 358025 1 Capsule(s) PO QD 02/02/2008/01/2012 Inactive TAKE ONE CAPSULE BY MOUTH EV JANKI MORNING Synthroid 112 mcg Tab RxNorm: 863699 1 Tablet(s) PO QD 01/18/2012 Inactive TAKE ONE TABLET BY MOUTH EVERY DAY lactulose 10 gram/15 mL oral solution RxNorm: 952072 [address]s) PO QD 01/18/2012 No Stop Date Active TAKE 1 TABLESPOON BY MOUTH ONCE DAILY Ventolin HFA 90 mcg/actuation Aerosol Inhaler RxNorm: 236260 2 Puff(s) INH Q4H 01/18/2012 04/11/2012 Inactive prn MS Contin 200 mg Tab RxNorm: 445619 1 Tablet(s) PO BID 01/05/201210/2012 Inactive Endocet 10 mg-325 mg Tab RxNorm: 4422787 1-2 Tablet(s) PO Q4H 01/0502/01/2012 Inactive PRN PAIN ProAir HFA 90 mcg/Actuation Aerosol Inhaler RxNorm: 409624 2 Pu ff(s) INH Q4H 12/21/2011 No Stop Date Active prn for wheezing or shortness of breath Spiriva with HandiHaler 18 mcg & inhalation Caps RxNorm: 580 261 1 Capsule(s) INH 12/21/2011 06/30/2012 Inactive INHALE CONTENTS OF 1 CAPSULE(S) WITH HANDIHALER ONCE DAILY Reglan 10 mg Tab RxNorm: 594040 1 Tablet(s) PO QID before meals and at bedtime 12/21/2011 04/10/2012 Inactive Synthroid 112 mcg Tab RxNorm: 479597 1 Tablet(s) PO QD 12/21/2011 Inactive TAKE ONE TABLET BY MOUTH EVERY DAY Endocet 10 mg-325 mg Tab RxNorm: 3878736 1-2 Tablet(s) PO Q4H 11/2512/24/2011 Inactive PRN PAIN MS Contin 200 mg Tab RxNorm: 706721 1 Tablet(s) PO BID 11/25/201112/2011 Inactive lactulose 10 gram/15 mL Oral Soln RxNorm: 497905 Milliliter(s) PO 1 No Stop Date Active TAKE 1 TABLESPOON BY MOUTH O NCE DAILY lactulose 10 gram/15 mL Oral Soln RxNorm: 772651 Milliliter(s) PO 1 12/12/2010 11/20/2011 Inactive TAKE 1 TABLESPOON BY MOUTH O NCE DAILY Premarin 0.9 mg Tab RxNorm: 972321 1 Tablet(s) PO QD 10/12/201105/08 Inactive TAKE ONE TABLET BY MOUTH EVERY DAY fluoxetine 20 mg capsule RxNorm: 199937 1 Capsule(s) PO QD 10/12/2009/05/2012 Inactive TAKE ONE CAPSULE BY MOUTH EV JANKI DAY Synthroid 112 mcg Tab RxNorm: 592914 1 Tablet(s) PO QD 10/12/2011 Inactive TAKE ONE TABLET BY MOUTH EVERY DAY metformin ER 500 mg 24 hr Tab RxNorm: 724931 1 Tablet(s) PO QD 09/2311/10/2011 Inactive TAKE ONE TABLET BY MOUTH GLYNN RY DAY Synthroid 112 mcg Tab RxNorm: 175645 1 Tablet(s) PO QD 10/12/2011 Inactive TAKE ONE TABLET BY MOUTH EVERY DAY metformin ER 500 mg 24 hr Tab RxNorm: 899986 1 Tablet(s) PO QD 09/2310/11/2011 Inactive TAKE ONE TABLET BY MOUTH GLYNN RY DAY Prevacid 30 mg Cap RxNorm: 193858 Capsule(s) PO 10/12/2011 01/25/2012 Inactive TAKE ONE CAPSULE BY MOUTH EVERY DAY Symbicort 160 mcg-4.5 mcg/actuation HFA Aerosol Inhaler RxNo rm: 0231670 2 Puff(s) INH BID 10/12/2011 05/08/2012 Inactive INHALE 2 PUFFS O RALLY TWO TIMES A DAY gabapentin 800 mg Tab RxNorm: 433433 1 Tablet(s) PO QD 10/12/2011 Inactive TAKE ONE TABLET BY MOUTH EVERY DAY MS Contin 200 mg Tab RxNorm: 117330 1 Tablet(s) PO BID 09/23/201111/2010 Inactive Endocet 10 mg-325 mg Tab RxNorm: 5242216 1-2 Tablet(s) PO Q4H 09/2310/22/2011 Inactive PRN PAIN Endocet 10 mg-325 mg Tab RxNorm: 6645140 1-2 Tablet(s) PO Q4H 08/2109/19/2011 Inactive PRN PAIN MS Contin 200 mg Tab RxNorm: 355456 1 Tablet(s) PO BID 08/21/2011 Inactive Diflucan 100 mg Tab RxNorm: 997485 1 Tablet(s) PO QD 08/10/201108/16 Inactive cefdinir 300 mg Cap RxNorm: 604236 2 Capsule(s) PO QD 08/10/201107/24 Inactive Reglan 10 mg Tab RxNorm: 931708 1 Tablet(s) PO AC & HS 07/15/2011 Inactive Endocet 10 mg-325 mg Tab RxNorm: 9914656 1-2 Tablet(s) PO Q4H 07/1508/13/2011 Inactive PRN PAIN One Touch Ultra Test strips RxNorm: Miscellaneous BID 06/11/201101/16/2014 Inactive TEST TWO TIMES A DAY lactulose 10 gram/15 mL Oral Soln RxNorm: 203193 Milliliter(s) PO 0 06/10/2011 10/11/2011 Inactive TAKE 1 TABLESPOON BY MOUTH O NCE DAILY Chantix Continuing Month Aníbal 1 mg Tab RxNorm: 847153 Tablet(s) PO 0 06/10/2011 11/02/2011 Inactive TAKE DIRECTED - PER [employer] GE INSTRUCTIONS fluoxetine 40 mg Cap RxNorm: 920514 Capsule(s) PO 06/10/2011 02/02/20 12 Inactive TAKE ONE CAPSULE BY MOUTH EVERY MORNING Chantix Continuing Month Aníbal 1 mg Tab RxNorm: 235189 Ta blet(s) PO TAKE DIRECTED - PER PACKAGE INSTRUCTIONS 05/13/2011 06/09/2011 Inactive Soma 350 mg Tab RxNorm: 792090 Tablet(s) PO TAKE ON E TABLET BY MOUTH THREE TIMES A DAY 05/13/2011 04/18/2012 Inactive Chantix Continuing Month Aníbal 1 mg Tab RxNorm: 285588 Ta blet(s) PO as directed per package instructions. 04/22/2011 05/12/2011 Inactive Symbicort 160 mcg-4.5 mcg/Actuation HFA Aerosol Inhaler RxNo rm: [id number] HFA Aerosol Inhaler INH INHALE 2 PUFFS ORALLY TWO TIMES A DAY 04/13/2011 Inactive Synthroid 112 mcg Tab RxNorm: 146956 Tablet(s) PO TAKE ONE TABLET BY MOUTH EVERY DAY 04/13/2011 10/12/2011 Inactive Premarin 0.9 mg Tab RxNorm: 759120 Tablet(s) PO TAKE ON E TABLET BY MOUTH EVERY DAY 04/13/2011 10/12/2011 Inactive gabapentin 800 mg Tab RxNorm: 772246 Tablet(s) PO TAKE ONE TABLET BY MOUTH EVERY DAY 04/13/2011 10/12/2011 Inactive Prevacid 30 mg Cap RxNorm: 667183 1 Capsule(s) PO QD 04/13/201110/11 Inactive Spiriva with HandiHaler 18 mcg & inhalation Caps RxNorm: 580 261 Capsule(s) INH INHALE CONTENTS OF 1 CAPSULE(S) WITH HANDIHALER ONCE DAILY 04/13/2011 12/21/2011 Inactive metformin ER 500 mg 24 hr Tab RxNorm: 412330 Tablet(s) PO TAKE ONE TABLET BY MOUTH EVERY DAY 04/13/2011 10/12/2011 Inactive Soma 350 mg Tab RxNorm: 022996 1 Tablet(s) PO QID 03/30/2011 02/13/20 19 Inactive fluoxetine 20 mg Cap RxNorm: 227910 Capsule(s) PO TAKE ONE CAPSULE BY MOUTH EVERY DAY 03/25/2011 10/12/2011 Inactive cefdinir 300 mg Cap RxNorm: 084676 2 Capsule(s) PO QD 03/19/201105/2011 Inactive 16.2 mg-0.1037 mg-0.0194 mg Tab RxNorm: 1576755 2 Tablet(s) PO TID PRN for gas and cramping 03/16/2011 07/13/2011 Inactive Soma 350 mg Tab RxNorm: 716944 2 Tablet(s) PO TID 03/16/2011 03/29/20 11 Inactive Chantix Starting Month Aníbal 0.5 mg (11)-1 mg (3x14) Tab s in a Dose Pack RxNorm: 047497 Tablet(s) PO as directed 03/02/2011 No Stop Date Active diazepam 10 mg Tab RxNorm: 118251 1 Tablet(s) PO BID 02/10/201101/19 Inactive Zofran 4 mg tablet RxNorm: 281319 1 Tablet(s) PO Q4H prn nausea 02/16/2011 Inactive Diflucan 100 mg Tab RxNorm: 305283 1 Tablet(s) PO QD 01/18/201101/24 Inactive Premarin 0.625 mg/g Vaginal Cream RxNorm: 457607 VAG In sert 1gm vaginally at bedtime 3 times weekly 01/18/2011 02/12/2019 Inactive loratadine 10 mg Tab RxNorm: 2820737 1 Tablet(s) PO QD 12/17/201003/2012 Inactive Spiriva with HandiHaler 18 mcg & inhalation Caps RxNorm: 580 261 1 Capsule(s) INH QD 12/17/2010 04/12/2011 Inactive Diflucan 100 mg Tab RxNorm: 131116 1 Tablet(s) PO QD 12/17/201012/23 Inactive diazepam 10 mg Tab RxNorm: 203564 1 Tablet(s) PO BID and PRN 201002/12/2019 Inactive One Touch Ultra Test Strips RxNorm: InVt BID Zainab t blood sugar at least twice daily. 11/11/2010 06/11/2011 Inactive fluoxetine 40 mg Cap RxNorm: 429071 1 Capsule(s) PO QAM 11/11/2010 Inactive diazepam 10 mg Tab RxNorm: 381542 1 Tablet(s) PO BID and PRN 200911/12/2010 Inactive Bactrim DS 800 mg-160 mg Tab RxNorm: 587702 1 Tablet(s) PO BID 09/2210/15/2010 Inactive fluoxetine 20 mg Cap RxNorm: 745023 1 Capsule(s) PO QD 10/02/201008/2011 Inactive Bactrim DS 800 mg-160 mg Tab RxNorm: 483932 1 Tablet(s) PO BID 01/201010/03/2010 Inactive Zofran 4 mg Tab RxNorm: 737069 1 Tablet(s) PO Q4H prn nausea 200910/16/2010 Inactive 16.2 mg-0.1037 mg-0.0194 mg Tab RxNorm: 9429387 2 Tablet(s) PO TID PRN for gas and cramping 09/17/2010 10/21/2010 Inactive Gabapentin 800 mg Tab RxNorm: 882301 1 Tablet(s) PO QD 09/16/2010 Inactive ProAir HFA 90 mcg/Actuation Aerosol Inhaler RxNorm: 852491 2 Puff(s) INH Q4H prn shortness of breath 09/15/2010 12/13/2010 Inactive gabapentin 800 mg Tab RxNorm: 491586 1 Tablet(s) PO QD 09/15/2010 Inactive Prevacid 30 mg Cap RxNorm: 792611 1 Capsule(s) PO QD 09/15/201004/12 Inactive loratadine 10 mg Tab RxNorm: 3691766 1 Tablet(s) PO QD 09/15/2010 Inactive Premarin 0.9 mg Tab RxNorm: 316494 1 Tablet(s) PO QD 09/15/201004/12 Inactive Synthroid 112 mcg Tab RxNorm: 630600 1 Tablet(s) PO QD 09/15/2010 Inactive metformin ER 500 mg 24 hr Tab RxNorm: 148725 1 Tablet(s) PO QD 08/2304/12/2011 Inactive Symbicort 160 mcg-4.5 mcg/Actuation Inhalation HFA Aer osol Inhaler RxNorm: 5801486 2 Puff(s) INH BID 09/15/2010 04/12/2011 Inactive diazepam 10 mg Tab RxNorm: 378773 1 Tablet(s) PO BID and PRN 200910/13/2010 Inactive Phentermine 37.5 mg Cap RxNorm: 369852 1 Capsule(s) PO QD 09/02/2010 11/02/2011 Inactive ProAir HFA 90 mcg/Actuation Aerosol Inhaler RxNorm: 411195 2 Puff(s) INH Q4H prn shortness of breath 08/07/2010 No Stop Date Active Premarin 0.9 mg Tab RxNorm: 702739 1 Tablet(s) PO QD 08/07/201009/14 Inactive Loratadine 10 mg Tab RxNorm: 8308238 1 Tablet(s) PO QD 08/07/2010 Inactive Lactulose 10 gram/15 mL Oral Soln RxNorm: 013990 1 Unit Dose PO QD 08/07/2010 02/12/2019 Inactive Zofran 4 mg Tab RxNorm: 591939 1 Tablet(s) PO Q4H prn nausea 2009 No Stop Date Active Gabapentin 800 mg Tab RxNorm: 280470 1 Tablet(s) PO QD 08/07/2010 Inactive Synthroid 112 mcg Tab RxNorm: 941281 1 Tablet(s) PO QD 08/07/2010 Inactive Metformin ER 500 mg 24 hr Tab RxNorm: 254488 1 Tablet(s) PO QD 07/2309/14/2010 Inactive Vitamin D 1,000 unit Tab RxNorm: 726935 1 Tablet(s) PO TID 08/07/20 10 02/12/2019 Inactive Symbicort 160 mcg-4.5 mcg/Actuation Inhalation HFA Aer osol Inhaler RxNorm: 2791659 2 Puff(s) INH BID 08/07/2010 09/14/2010 Inactive Prevacid 30 mg Cap RxNorm: 617855 1 Capsule(s) PO QD 08/07/201009/14 Inactive Metformin ER 500 mg 24 hr Tab RxNorm: 491392 1 Tablet(s) PO QD 06/2308/06/2010 Inactive Vitamin D 1,000 unit Tab RxNorm: 275300 1 Tablet(s) PO TID 07/14/20 10 08/06/2010 Inactive Synthroid 112 mcg Tab RxNorm: 637707 1 Tablet(s) PO QD 07/14/2010 Inactive Lactulose 10 gram/15 mL Oral Soln RxNorm: 541433 1 Unit Dose PO QD 07/14/2010 08/06/2010 Inactive Levaquin 500 mg Tab RxNorm: 130432 1 Tablet(s) PO QD 07/14/201007/27 Inactive Premarin 0.9 mg Tab RxNorm: 056856 1 Tablet(s) PO QD 07/14/201008/06 Inactive ProAir HFA 90 mcg/Actuation Aerosol Inhaler RxNorm: 613117 2 Puff(s) INH Q4H prn shortness of breath 07/14/2010 No Stop Date Active Prevacid 30 mg Cap RxNorm: 128082 1 Capsule(s) PO QD 07/14/201008/06 Inactive Zofran 4 mg Tab RxNorm: 860894 1 Tablet(s) PO Q4H prn nausea 2009 No Stop Date Active Symbicort 160 mcg-4.5 mcg/Actuation Inhalation HFA Aer osol Inhaler RxNorm: 0669188 2 Puff(s) INH BID 07/14/2010 08/06/2010 Inactive Loratadine 10 mg Tab RxNorm: 2299299 1 Tablet(s) PO QD 07/14/2010 Inactive Gabapentin 800 mg Tab RxNorm: 465001 1 Tablet(s) PO QD 07/14/2010 Inactive Metformin ER 500 mg 24 hr Tab RxNorm: 547861 1 Tablet(s) PO 010 07/13/2010 Inactive Diazepam 10 mg Tab RxNorm: 135834 1 Tablet(s) PO BID and PRN 200909/06/2010 Inactive Premarin 0.9 mg Tab RxNorm: 718621 1 Tablet(s) PO QD 06/09/201007/13 Inactive Zofran 4 mg Tab RxNorm: 699057 1 Tablet(s) PO Q4H prn nausea 2009 No Stop Date Active ProAir HFA 90 mcg/Actuation Aerosol Inhaler RxNorm: 423817 2 Puff(s) INH Q4H prn shortness of breath 06/09/2010 No Stop Date Active Gabapentin 800 mg Tab RxNorm: 056610 1 Tablet(s) PO QD 06/09/2010 Inactive Loratadine 10 mg Tab RxNorm: 4708000 1 Tablet(s) PO QD 06/09/2010 Inactive Lactulose 10 gram/15 mL Oral Soln RxNorm: 089989 1 Unit Dose PO QD 06/09/2010 07/13/2010 Inactive Prevacid 30 mg Cap RxNorm: 754414 1 Capsule(s) PO QD 06/09/201007/13 Inactive Synthroid 112 mcg Tab RxNorm: 330258 1 Tablet(s) PO QD 06/09/2010 Inactive Symbicort 160 mcg-4.5 mcg/Actuation Inhalation HFA Aer osol Inhaler RxNorm: 9232448 2 Puff(s) INH BID 06/09/2010 07/13/2010 Inactive Omnicef 300 mg Cap RxNorm: 601616 2 Capsule(s) PO QD 05/07/201005/20 Inactive Metformin 500 mg Tab RxNorm: 879202 1 Tablet(s) PO QD 05/06/201005/22 Inactive ProAir HFA 90 mcg/Actuation Aerosol Inhaler RxNorm: 698839 2 Puff(s) INH Q4H prn shortness of breath 05/06/2010 No Stop Date Active lactulose 10 gram/15 mL Oral Soln RxNorm: 145084 1 Unit Dose PO QD 05/06/2010 06/10/2011 Inactive Loratadine 10 mg Tab RxNorm: 9259764 1 Tablet(s) PO QD 05/06/2010 Inactive Synthroid 112 mcg Tab RxNorm: 638893 1 Tablet(s) PO QD 05/06/2010 Inactive Symbicort 160 mcg-4.5 mcg/Actuation Inhalation HFA Aer osol Inhaler RxNorm: 1409128 2 Puff(s) INH BID 05/06/2010 06/08/2010 Inactive Gabapentin 800 mg Tab RxNorm: 423347 1 Tablet(s) PO QD 05/06/2010 Inactive 16.2 mg-0.1037 mg-0.0194 mg Tab RxNorm: 9206277 2 Tablet(s) PO TID PRN for gas and cramping 05/06/2010 05/12/2010 Inactive Zofran 4 mg Tab RxNorm: 577882 1 Tablet(s) PO Q4H prn nausea 200904/13/2010 Inactive MS Contin 60 mg tablet,extended release RxNorm: 852014 3 Tablet (s) PO BID 04/09/2010 05/08/2010 Inactive Soma 350 mg Tab RxNorm: 636760 2 Tablet(s) PO TID 04/09/2010 05/08/20 10 Inactive Symbicort 160 mcg-4.5 mcg/Actuation Inhalation HFA Aer osol Inhaler RxNorm: 0801118 2 Puff(s) INH BID 04/08/2010 05/05/2010 Inactive Doxycycline 100 mg Cap RxNorm: 4317209 1 Capsule(s) PO BID 04/08/20 10 04/17/2010 Inactive Triamterene-Hydrochlorothiazide 37.5 mg-25 mg Cap RxNorm: 19 8316 1 Capsule(s) PO QAM 04/08/2010 09/04/2010 Inactive fluoxetine 40 mg Cap RxNorm: 348964 1 Capsule(s) PO QAM 04/08/2010 Inactive Morphine SR 120 mg multiphase 24 hr Cap RxNorm: 493941 1 Capsul e(s) PO 03/11/2010 04/07/2010 Inactive Endocet 10 mg-325 mg Tab RxNorm: 0757046 1-2 Tablet(s) PO Q4H IA N PAIN 03/11/2010 04/09/2010 Inactive Savella 100 mg Tab RxNorm: 068785 1 Tablet(s) PO BID 03/10/201004/09 Inactive Soma 350 mg Tab RxNorm: 827411 1 Tablet(s) PO TID prn spasm 010 04/09/2010 Inactive Savella 100 mg Tab RxNorm: 703429 1 Tablet(s) PO BID 02/03/201004/09 Inactive Aspirin 81 mg Tab RxNorm: 390233 1 Tablet(s) PO QD No Start Date Active Zyrtec 10 mg Tab RxNorm: 3159142 1 Tablet(s) PO QD No Start Date Active One Touch Ultra Test Strips RxNorm: Misc test at least t wice daily. No Start Date Active coenzyme Q10 200 mg capsule RxNorm: 076250 1 Capsule(s) PO QD No Star t Date Active One Touch Ultra Test Strips RxNorm: InVt BID Zainab t blood sugar at least twice daily. No Start Date 11/10/2010 Inactive Gabapentin 800 mg Tab RxNorm: 002203 1 Tablet(s) PO QD No Start Date 05/05/2010 Inactive Abilify 5 mg tablet RxNorm: 148085 1 Tablet(s) PO QD No Start Date Inactive Chantix 1 mg Tab RxNorm: 731735 1 Tablet(s) PO BID No Start Date 10/22 Inactive Ozempic 0.25 mg or 0.5 mg (2 mg/1.5 mL) subcutaneous p en injector RxNorm: 6165822 .25 Milligram(s) SQ QW No Start Date 07/04/2019 Inactive lancets 28 gauge RxNorm: Miscellaneous As needed for blo od glucose sticks No Start Date 08/23/2013 Inactive potassium chloride ER 20 mEq tablet,extended release RxNorm: 451844 2 Tablet(s) PO QD No Start Date 09/26/2018 Inactive Ventolin HFA 90 mcg/actuation Aerosol Inhaler RxNorm: 442837 2 Puff(s) INH Q4H prn No Start Date 01/17/2012 Inactive potassium chloride ER 20 mEq tablet,extended release RxNorm: 244510 2 Tablet(s) PO QD No Start Date 10/19/2018 Inactive Januvia 100 mg tablet RxNorm: 227383 1 Tablet(s) PO QD No Start Date 09/10/2015 Inactive Medrol (Aníbal) 4 mg Tabs in a Dose Pack RxNorm: 554266 Tablet(s) PO N o Start Date 08/09/2011 Inactive as directed Zithromax Z-Aníbal 250 mg Tab RxNorm: 617921 Tablet(s) PO No Start Date 01/25/2012 Inactive as directed vitamin B6-vitamin E-magnesium tablet RxNorm: 1 Tablet(s ) PO QHS with INH No Start Date 03/30/2018 Inactive prednisone 20 mg Tab RxNorm: 005413 1 Tablet(s) PO TID for 1wk then 1 po BID for 1wk No Start Date 01/25/2012 Inactive furosemide 40 mg tablet RxNorm: 258882 1 Tablet(s) PO QAM No Start Date 10/09/2018 Inactive Vitamin D3 1000 units Capsule RxNorm: 1 Capsule(s) PO TID No S tart Date 03/19/2015 Inactive Zofran 4 mg Tab RxNorm: 122572 1 Tablet(s) PO Q4H prn nausea No Sta rt Date 04/13/2010 Inactive Premarin 0.625 mg/g Vaginal Cream RxNorm: 484934 1 Gram (s) VAG QHS 3 times a week No Start Date 09/22/2017 Inactive oxycodone 10 mg tablet RxNorm: 1264762 1-2 Tablet(s) PO QID as n eeded for pain No Start Date 11/04/2015 Inactive Nicoderm CQ 21 mg/24 hr daily Patch RxNorm: 119844 1 Applicatio n TD QD No Start Date 08/05/2015 Inactive Topamax 50 mg tablet RxNorm: 063033 1/2 Tablet(s) PO QH S for 1wk then 1 po q HS for 1wk then 2 po q HS No Start Date 06/27/2012 Inactive Chantix Starting Month Aníbal 0.5 mg (11)-1 mg (3x14) Tab s in a Dose Pack RxNorm: 598582 Tablet(s) PO as directed No Start Date 03/01/2011 Inactive Trulicity 0.75 mg/0.5 mL subcutaneous pen injector RxNorm: 1 226532 Milliliter(s) SQ No Start Date 07/04/2019 Inactive Medrol (Aníbal) 4 mg Tabs in a Dose Pack RxNorm: 687769 Tablet(s) PO N o Start Date 01/25/2012 Inactive as directed Duragesic 100 mcg/hr Transderm Patch RxNorm: 804168 2 A pplication TD Q48H for pain No Start Date 09/05/2013 Inactive Premarin 0.9 mg Tab RxNorm: 394344 1 Tablet(s) PO QD No Start Date Inactive Zithromax Z-Aníbal 250 mg Tab RxNorm: 916477 Tablet(s) PO as direc chinmay No Start Date 01/25/2012 Inactive ondansetron 8 mg disintegrating tablet RxNorm: 267204 1 Tablet(s) PO Q6H as needed No Start Date 10/10/2018 Inactive oxycodone 15 mg tablet RxNorm: 4077803 1 Tablet(s) PO QID as nee ded for pain No Start Date 03/05/2019 Inactive ProAir HFA 90 mcg/Actuation Aerosol Inhaler RxNorm: 509628 2 Puff(s) INH Q4H prn for wheezing or shortness of breath No Start Date 12/21/2011 Inactive pravastatin 40 mg tablet RxNorm: 713294 1/2 Tablet(s) PO QOD No Sta rt Date 04/09/2015 Inactive ipratropium-albuterol 0.5 mg-3 mg(2.5 mg base)/3 mL ne bulization soln RxNorm: 1872310 1 Unit Dose INH Q4H as needed No Start Date 09/09/2016 Inactive furosemide 40 mg tablet RxNorm: 866812 1 Tablet(s) PO QAM as ne eded No Start Date 09/24/2019 Inactive Vitamin D2 oral RxNorm: 4018 oral No Start Date 03/18/2015 Inacti ve pravastatin 40 mg tablet RxNorm: 477789 1/2 Tablet(s) PO QD No Star t Date 04/09/2015 Inactive ondansetron HCl 4 mg tablet RxNorm: 612696 1 Tablet(s) PO Q4H as needed for nausea and vomiting No Start Date 04/07/2016 Inactive furosemide 40 mg tablet RxNorm: 057029 2 Tablet(s) PO QAM No Start Date 09/26/2018 Inactive gabapentin 800 mg tablet RxNorm: 275322 1/2 Tablet(s) PO BID No Sta rt Date 06/21/2017 Inactive gabapentin 800 mg tablet RxNorm: 800561 1/2 Tablet(s) PO BID No Sta rt Date 07/05/2017 Inactive ProAir HFA 90 mcg/Actuation Aerosol Inhaler RxNorm: 783696 2 Puff(s) INH Q4H prn shortness of breath No Start Date 05/05/2010 Inactive scopolamine 1 mg over 3 days transdermal patch RxNorm: 87066 2 1 Application TD behind ear. Take off after three days No Start Date 10/10/2018 Inactive Metformin 500 mg Tab RxNorm: 198526 1 Tablet(s) PO QD No Start Date 0 05/05/2010 Inactive MS Contin 200 mg Tab RxNorm: 372084 1 Tablet(s) PO BID No Start Date 08/20/2011 Inactive Belladonna-Phenobarbital 48 mg tablet,extended release RxNor m: 2 Tablet(s) PO TID No Start Date 06/04/2016 Inactive Synthroid 112 mcg Tab RxNorm: 537296 1 Tablet(s) PO QD No Start Date 05/05/2010 Inactive Zegerid 40 mg-1.1 gram Cap RxNorm: 298447 1 Capsule(s) PO QD No Sta rt Date 01/25/2012 Inactive Premarin 0.625 mg/g Vaginal Cream RxNorm: 972972 VAG In sert 1gm vaginally at bedtime 3 times weekly No Start Date 01/17/2011 Inactive potassium chloride ER 20 mEq tablet,extended release RxNorm: 287495 1 Tablet(s) PO QD No Start Date 04/24/2019 Inactive methocarbamol 750 mg tablet RxNorm: 484706 2 Tablet(s) PO TID as needed for muscle spasm No Start Date 07/08/2014 Inactive Biaxin XL Aníbal 500 mg 24 hr Tab RxNorm: 761592 Tablet(s) PO as d irected No Start Date 04/24/2013 Inactive Vitamin D3 1,000 unit tablet RxNorm: 409947 3 Tablet(s) PO QD No St art Date 06/01/2017 Inactive Morphine SR 120 mg multiphase 24 hr Cap RxNorm: 832635 1 Capsul e(s) PO BID No Start Date 04/09/2010 Inactive Silvadene 1 % topical cream RxNorm: 554457 1 Application TOP BI D to burn area No Start Date 01/31/2017 Inactive Prednisone 20 mg Tab RxNorm: 573161 1 Tablet(s) PO TID for 3days then BID for 4days No Start Date 01/25/2012 Inactive gabapentin 600 mg tablet RxNorm: 360065 1 Tablet(s) PO BID No Start Date 01/21/2015 Inactive topiramate 50 mg tablet RxNorm: 176743 1 Tablet(s) PO QHS No Start Date 03/30/2018 Inactive Januvia 100 mg tablet RxNorm: 993513 1/2 Tablet(s) PO QD No Start D ate 12/25/2015 Inactive Diazepam 10 mg Tab RxNorm: 548168 1 Tablet(s) PO BID and PRN No Sta rt Date 06/08/2010 Inactive Medication Administered No Medication Administered data Immunizations Vaccine Codes Date Status Influenza CVX: 141 09/28/2012 Pneumovax Unknown 09/28/2012 Influenza (Adult) CVX: 141 09/02/2010 Results No Results data Procedures Procedure Codes Date THER/PROPH/DIAG INJ SC/IM CPT-4: 38073 07/10/2019 METHYLPREDNISOLONE INJECTION CPT-4: J2930 07/10/2019 URINALYSIS NONAUTO W/O SCOPE CPT-4: 23658 09/06/2018 URINE CULTURE/ COLONY COUNT CPT-4: 75665 09/06/2018 DRAIN/INJECT JOINT/BURSA CPT-4: 25341 04/29/2017 TRIAMCINOLONE ACET INJ NOS CPT-4: J3301 04/29/2017 DEXAMETHASONE SODIUM PHOS CPT-4: J1100 04/29/2017 INFLUENZA ASSAY W/OPTIC CPT-4: 09371 12/01/2016 RESPIRATORY CULTURE & STAIN CPT-4: 97923 07/09/2016 TB INTRADERMAL TEST CPT-4: 15673 04/21/2016 DRAIN/INJECT JOINT/BURSA CPT-4: 43346 11/07/2013 METHYLPREDNISOLONE 40 MG INJ CPT-4: J1030 11/07/2013 TRIAMCINOLONE ACET INJ NOS CPT-4: J3301 11/07/2013 DRAIN/INJECT JOINT/BURSA CPT-4: 65200 08/08/2013 METHYLPREDNISOLONE 40 MG INJ CPT-4: J1030 08/08/2013 TRIAMCINOLONE ACET INJ NOS CPT-4: J3301 08/08/2013 FLU VACCINE 3 YRS & > IM UP 64 CPT-4: 71175 2 PNEUMOCOCCAL VACC 23 ADITYA IM CPT-4: 90240 09/28/2012 IMMUNIZATION ADMIN CPT-4: 87789 09/28/2012 IMMUNIZATION ADMIN EACH ADD CPT-4: 51222 09/28/2012 FLU VACCINE 3 YRS & > IM UP 64 CPT-4: 64505 0 IMMUNIZATION ADMIN CPT-4: 59217 09/02/2010 METHYLPREDNISOLONE INJECTION CPT-4: J2930 05/07/2010 THER/PROPH/DIAG INJ SC/IM CPT-4: 82311 05/07/2010 Vital Signs Date Vital 04/24/2020 Blood [...] 1: 122/78 Code: 8480-6 BMI: 29.5 Code: 92974-2 Heart Rate 1: 76 bpm Height: 5'4" Respiratory Rate: 20 bpm SpO2: 96% Tempera ture: 37.0 (C) / 98.6 (F) Weight: 172 lbs 01/25/2019 Blood Pressure 1: 132/80 Code: 8480-6 BMI: 29.7 Code: 77784-6 Heart Rate 1: 84 bpm Height: 5'4" Respiratory Rate: 22 bpm SpO2: 98% Tempera ture: 36.9 (C) / 98.4 (F) Weight: 173 lbs 01/03/2019 Blood Pressure 1: 116/70 Code: 8480-6 BMI: 29.5 Code: 34195-9 Heart Rate 1: 92 bpm Height: 5'4" Respiratory Rate: 24 bpm SpO2: 98% Tempera ture: 37.2 (C) / 98.9 (F) Weight: 172 lbs 11/21/2018 Blood Pressure 1: 146/82 Code: 8480-6 BMI: 28.2 Code: 32529-8 Heart Rate 1: 88 bpm Height: 5'4" Respiratory Rate: 22 bpm SpO2: 97% Tempera ture: 36.9 (C) / 98.4 (F) Weight: 164 lbs 10/27/2018 Blood Pressure 1: 122/70 Code: 8480-6 BMI: 27.6 Code: 63085-3 Heart Rate 1: 88 bpm Height: 5'4" Respiratory Rate: 20 bpm SpO2: 96% Tempera ture: 36.8 (C) / 98.3 (F) Weight: 161 lbs 10/18/2018 Blood Pressure 1: 126/70 Code: 8480-6 BMI: 28.3 Code: 34641-5 Heart Rate 1: 76 bpm Height: 5'4" Respiratory Rate: 20 bpm SpO2: 95% Tempera ture: 37.0 (C) / 98.6 (F) Weight: 165 lbs 09/27/2018 Blood Pressure 1: 124/78 Code: 8480-6 BMI: 27.1 Code: 04418-7 Heart Rate 1: 88 bpm Height: 5'4" Respiratory Rate: 20 bpm SpO2: 98% Tempera ture: 36.4 (C) / 97.6 (F) Weight: 158 lbs 09/14/2018 Blood Pressure 1: 140/72 Code: 8480-6 BMI: 26.1 Code: 10035-6 Heart Rate 1: 100 bpm Height: 5'4" Respiratory Rate: 20 bpm SpO2: 97% Tempera ture: 36.9 (C) / 98.4 (F) Weight: 152 lbs 09/06/2018 Blood Pressure 1: 156/82 Code: 8480-6 BMI: 26.3 Code: 43165-8 Heart Rate 1: 100 bpm Height: 5'4" Respiratory Rate: 28 bpm SpO2: 95% Tempera ture: 37.2 (C) / 98.9 (F) Weight: 153 lbs 08/16/2018 Blood Pressure 1: 130/78 Code: 8480-6 Heart Rate 1: 87 bpm Respiratory Rate: 24 bpm SpO2: 94% Temperature: 36.9 (C) / 98.4 (F) We ight: 147 lbs 8 oz 07/07/2018 Blood Pressure 1: 116/78 Code: 8480-6 BMI: 22.7 Code: 49901-5 Heart Rate 1: 88 bpm Height: 5'4" Respiratory Rate: 22 bpm SpO2: 98% Tempera ture: 36.5 (C) / 97.7 (F) Weight: 132 lbs 05/31/2018 Blood Pressure 1: 128/78 Code: 8480-6 BMI: 22.3 Code: 39337-2 Heart Rate 1: 92 bpm Height: 5'4" Respiratory Rate: 26 bpm SpO2: 94% Tempera ture: 36.7 (C) / 98.1 (F) Weight: 130 lbs 03/31/2018 Blood Pressure 1: 136/78 Code: 8480-6 BMI: 21.5 Code: 22765-4 Heart Rate 1: 76 bpm Height: 5'4" Respiratory Rate: 24 bpm SpO2: 95% Tempera ture: 36.8 (C) / 98.3 (F) Weight: 125 lbs 01/26/2018 Blood Pressure 1: 142/64 Code: 8480-6 BMI: 20.6 Code: 51112-0 Heart Rate 1: 90 bpm Height: 5'4" Respiratory Rate: 24 bpm SpO2: 92% Tempera ture: 36.3 (C) / 97.3 (F) Weight: 120 lbs 10/26/2017 Blood Pressure 1: 124/70 Code: 8480-6 BMI: 20.3 Code: 25045-0 Heart Rate 1: 76 bpm Height: 5'4" Respiratory Rate: 22 bpm SpO2: 94% Tempera ture: 36.7 (C) / 98.1 (F) Weight: 118 lbs 09/23/2017 Blood Pressure 1: 106/70 Code: 8480-6 BMI: 19.2 Code: 90508-9 Heart Rate 1: 76 bpm Height: 5'4" Respiratory Rate: 20 bpm SpO2: 94% Tempera ture: 36.8 (C) / 98.3 (F) Weight: 112 lbs 08/12/2017 Blood Pressure 1: 116/68 Code: 8480-6 BMI: 20.1 Code: 25638-7 Heart Rate 1: 80 bpm Height: 5'4" Respiratory Rate: 22 bpm SpO2: 95% Tempera ture: 36.8 (C) / 98.2 (F) Weight: 117 lbs 07/06/2017 Blood Pressure 1: 136/78 Code: 8480-6 BMI: 20.6 Code: 66196-2 Heart Rate 1: 76 bpm Height: 5'4" Respiratory Rate: 24 bpm SpO2: 96% Tempera ture: 36.8 (C) / 98.2 (F) Weight: 120 lbs 06/02/2017 Blood Pressure 1: 112/70 Code: 8480-6 Heart Rate 1: 92 bpm Height: 5'4" Respiratory Rate: 24 bpm SpO2: 95% Temperature: 37.0 (C) / 98.6 (F) Weight: 04/29/2017 Blood Pressure 1: 94/52 Code: 8480-6 BMI: 19.6 C ode: 63398-9 Heart Rate 1: 84 bpm Height: 5'4" [...] 92/58 Code: 8480-6 BMI: 19.2 C ode: 80523-9 Heart Rate 1: 84 bpm Height: 5'4" Respiratory Rate: 26 bpm SpO2: 95% Tempera ture: 36.7 (C) / 98.0 (F) Weight: 112 lbs 12/01/2016 Blood Pressure 1: 114/70 Code: 8480-6 BMI: 19.2 Code: 00986-6 Heart Rate 1: 96 bpm Height: 5'4" Respiratory Rate: 28 bpm SpO2: 93% Tempera ture: 38.3 (C) / 101.0 (F) Weight: 112 lbs 10/27/2016 Blood Pressure 1: 126/66 Code: 8480-6 BMI: 19.6 Code: 16018-9 Heart Rate 1: 92 bpm Height: 5'4" Respiratory Rate: 28 bpm SpO2: 90% Tempera ture: 36.8 (C) / 98.3 (F) Weight: 114 lbs 09/09/2016 Blood Pressure 1: 126/74 Code: 8480-6 Heart Rate 1: 104 bpm Height: 5'4" Respiratory Rate: 32 bpm SpO2: 88% Temperature: 37 .2 (C) / 99.0 (F) 08/26/2016 Blood Pressure 1: 134/82 Code: 8480-6 BMI: 22.0 Code: 62277-3 Heart Rate 1: 84 bpm Height: 5'4" Respiratory Rate: 24 bpm SpO2: 94% Tempera ture: 36.8 (C) / 98.3 (F) Weight: 128 lbs 05/21/2016 Blood Pressure 1: 142/80 Code: 8480-6 BMI: 21.6 Code: 91981-2 Heart Rate 1: 104 bpm Height: 5'4" Respiratory Rate: 22 bpm SpO2: 93% Tempera ture: 36.0 (C) / 96.8 (F) Weight: 126 lbs 03/25/2016 Blood Pressure 1: 126/62 Code: 8480-6 Heart Rate 1: 88 bpm Respiratory Rate: 20 bpm SpO2: 92% Temperature: 36.8 (C) / 98.3 (F) We ight: 130 lbs 01/23/2016 Blood Pressure 1: 146/82 Code: 8480-6 BMI: 24.1 Code: 86451-7 Heart Rate 1: 92 bpm Height: 5'3" Respiratory Rate: 22 bpm Temperature: 37 .1 (C) / 98.8 (F) Weight: 136 lbs 12/26/2015 Blood Pressure 1: 142/78 Code: 8480-6 BMI: 24.6 Code: 12693-5 Heart Rate 1: 78 bpm Height: 5'3" Respiratory Rate: 20 bpm Temperature: 36 .7 (C) / 98.1 (F) Weight: 139 lbs 12/03/2015 Blood Pressure 1: 126/60 Code: 8480-6 BMI: 24.6 Code: 47520-7 Heart Rate 1: 100 bpm Height: 5'3" Respiratory Rate: 28 bpm Temperature: 37 .6 (C) / 99.6 (F) Weight: 139 lbs 09/10/2015 Blood Pressure 1: 124/64 Code: 8480-6 BMI: 23.7 Code: 90103-5 Heart Rate 1: 88 bpm Height: 5'3" Respiratory Rate: 24 bpm SpO2: 95% Tempera ture: 36.4 (C) / 97.6 (F) Weight: 134 lbs 08/06/2015 Blood Pressure 1: 114/76 Code: 8480-6 BMI: 23.2 Code: 37108-4 Heart Rate 1: 88 bpm Height: 5'3" Respiratory Rate: 22 bpm Temperature: 36 .6 (C) / 97.9 (F) Weight: 131 lbs 07/18/2015 Blood Pressure 1: 144/78 Code: 8480-6 BMI: 23.7 Code: 14044-7 Heart Rate 1: 84 bpm Height: 5'3" Respiratory Rate: 20 bpm Temperature: 37 .2 (C) / 99.0 (F) Weight: 134 lbs 04/10/2015 Blood Pressure 1: 110/64 Code: 8480-6 Heart Rate 1: 80 bpm Height: Respiratory Rate: 20 bpm Temperature: 37.1 (C) / 98.8 (F) Weight: 03/05/2015 Blood Pressure 1: 136/80 Code: 8480-6 BMI: 23.9 Code: 61666-4 Heart Rate 1: 76 bpm Height: 5'3" Respiratory Rate: 24 bpm Temperature: 37 .0 (C) / 98.6 (F) Weight: 135 lbs 01/30/2015 Blood Pressure 1: 142/80 Code: 8480-6 BMI: 23.0 Code: 53954-4 Heart Rate 1: 96 bpm Height: 5'3" Respiratory Rate: 22 bpm Temperature: 36 .2 (C) / 97.2 (F) Weight: 130 lbs 01/02/2015 Blood Pressure 1: 124/70 Code: 8480-6 BMI: 23.4 Code: 68933-5 Heart Rate 1: 84 bpm Height: 5'3" Respiratory Rate: 24 bpm SpO2: 95% Tempera ture: 36.9 (C) / 98.5 (F) Weight: 132 lbs 10/03/2014 Blood Pressure 1: 106/68 Code: 8480-6 BMI: 22.5 Code: 62973-7 Heart Rate 1: 88 bpm Height: 5'3" Respiratory Rate: 24 bpm Temperature: 37 .0 (C) / 98.6 (F) Weight: 127 lbs 08/27/2014 Blood Pressure 1: 124/68 Code: 8480-6 BMI: 21.1 Code: 95317-4 Heart Rate 1: 88 bpm Height: 5'3" [...] 1: 120/70 Code: 8480-6 BMI: 19.2 Code: 35073-0 Heart Rate 1: 70 bpm Height: 5'4" Respiratory Rate: 20 bpm Temperature: 36 .9 (C) / 98.4 (F) Weight: 112 lbs 06/28/2013 Blood Pressure 1: 102/68 Code: 8480-6 BMI: 19.6 Code: 48813-2 Heart Rate 1: 76 bpm Height: 5'4" Respiratory Rate: 20 bpm Temperature: 36 .8 (C) / 98.2 (F) Weight: 114 lbs 05/31/2013 Blood Pressure 1: 106/70 Code: 8480-6 BMI: 18.9 Code: 91354-1 Heart Rate 1: 100 bpm Height: 5'4" Respiratory Rate: 20 bpm Temperature: 36 .4 (C) / 97.6 (F) Weight: 110 lbs 05/03/2013 Blood Pressure 1: 126/70 Code: 8480-6 BMI: 19.1 Code: 57320-4 Heart Rate 1: 88 bpm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 Zithromax for 1wk 06/28/2012 Appointment: Vika Renteria WPtel: [address] [place] [address] voicemail FOLLOW UP 06/28/2012 Patient Education: Patient Medication Summary Completed 06/28/2012 Visit Plan: Topamax from Migraine preven tion Smoking cessation 05/03/2012 Appointment: Vika Renteria WPtel: [address] [place] [address] 04/26/12: appt rescheduled from 04/26/12 by daughter [...] smoking cessation 03/01/2012 Appointment: Vika Renteria WPtel: [address] [place], [place] [phone] FOLLOW UP 03/01/2012 Patient Education: Patient Medication Summary Completed 03/01/2012 Visit Plan: Overnight pulse ox Smoking C essation Add Daliresp 500mg daily Hold Metformin 01/26/2012 Appointment: Vika Renteria WPtel: [address] [place] [address] FOLLOW UP 01/26/2012 Patient Education: Patient Medication Summary Completed 01/26/2012 Visit Plan: Discussed methotrexate trial , but do to chronic bronchitis pt wants to hold Smoking cessation Check CMP, CBC, TSH, Free T4, Lipids. ESR, ds DNA, JOVANNY Check EGD 11/03/2011 Appointment: Vika Renteria WPtel: [address] [place] [address] FOLLOW UP 11/03/2011 Patient Education: Patient Medication Summary Completed 11/03/2011 Appointment: Vika Renteriatel: [address] [place] [address] 08/10/2011 Patient Education: Patient Medication Summary Completed 08/10/2011 Visit Plan: Supportive care. Rest, Fluid s, Tylenol/Motrin prn fever or bodyaches. Notify if worsening symptoms. Medrol Dose Pack Smoking Cessation and recommend get rid of cat Add Reglan for stomach 07/15/2011 Appointment: Vika Renteriatel: [address] [place] [address] ACUTE ILLNESS 07/15/2011 Patient Education: Patient Medication Summary Completed 07/15/2011 Appointment: Vika Renteriatel: [address] [place] [address] FOLLOW UP 04/02/2011 Visit Plan: SVN with Albuterol 0.083% Q4 hrs and Q2hrs prn. Cont smoking Cessation 03/19/2011 Appointment: Vika Renteria WPtel: [address] [place] [address] ACUTE ILLNESS 03/19/2011 Patient Education: Patient Medication Summary Completed 03/19/2011 Visit Plan: Repeat Biaxin XL Cont curren t meds Repeat Chantix 01/28/2011 Appointment: Vika Renteria WPtel: [address] [place], [place] [phone] FOLLOW UP 01/28/2011 Patient Education: Patient Medication Summary Completed 01/28/2011 Patient Education: Chantix Unbranded Comp leted 01/28/2011 Appointment: Vika Renteria WPtel: [address] [place], [place] [phone] FOLLOW UP 01/14/2011 Visit Plan: Finish abx Diflucan for vagi nitis Premarin vaginal cream Smoking cessation 12/17/2010 Appointment: Vika Renteria WPtel: [address] [place], [place] [phone] [place] [address] Follow Up 12/17/2010 Patient Education: Patient Medication Summary Completed 12/17/2010 Appointment: Vika Renteria WPtel: [address] [place], [place] [phone] FOLLOW UP 11/06/2010 Visit Plan: Start PT Use SVNs every 4hrs Smoking Cessation Change MS Contin to 200mg q 12hrs 2010 Appointment: Vika Renteria WPtel: [address] [place], [place] [phone] FOLLOW UP 2010 Patient Education: Patient Medication Summary Completed 2010 Visit Plan: Prednisone taper for pain an d lungs 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 Increase fluoxetine to 60mg QD for acute stress reaction 10/02/2010 Appointment: Vika Renteria WPtel: [address] [place], [place] [phone] FOLLOW UP 10/02/2010 Patient Education: Patient Medication Summary Completed 10/02/2010 Visit Plan: Check CT Head, Cervical, Tho racic, and Lumbar Spine Cont current meds Bactrim for left toe 09/24/2010 Appointment: Vika Renteria WPtel: [address] [place], [place] [phone] CHECK UP 09/24/2010 Patient Education: Patient Medication Summary Completed 09/24/2010 Appointment: Vika Renteria WPtel: [address] [place] [address] FOLLOW UP 09/02/2010 Patient Education: Patient Medication Summary Completed 09/02/2010 Visit Plan: Return for 2nd epidural Obse rve right leg lesion Cont Symbicort and Spiriva 07/14/2010 Appointment: Vika Renteria WPtel: [address] [place] [address] FOLLOW UP 07/14/2010 Patient Education: Patient Medication Summary Completed 07/14/2010 Appointment: Vika Renteria WPtel: [address] [place] [address] FOLLOW UP 05/27/2010 Appointment: Vika Renteria WPtel: [address] [place] [address] FOLLOW UP 05/14/2010 Visit Plan: SVN with Albuterol 0.083% Q4 hrs and Q2hrs prn. Restart Spiriva Smoking Cessation 05/07/2010 Appointment: Vika Renteria WPtel: [address] [place] [address] FOLLOW UP 05/07/2010 Patient Education: Patient Medication Summary Completed 05/07/2010 Appointment: Vika Renteria WPtel: [address] [place] [address] ACUTE ILLNESS 04/08/2010 Patient Education: Patient Medication Summary Completed 04/08/2010 Referral: Kyle Billings WPtel: [phone] [address] [place] Referral Completed Referral: Jaylan Matute WPtel: [phone] [facility] [address] [id number] [place] Referral Initiated Referral: Kyle Billings WPtel: [phone] [address] [place] Referral Appointment Requested Instructions Comment . [...] prn breakthrough pain . Discussed that some [employer] produc ts are petroleum free If [...]
--- OUTSIDE RECORDS SUMMARY | 2020-04-24 21:50 | XMS REPORT | CCD ---
Author Author Yana Renteria D.O. 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 Role Phone Vika Renteria D.O., PP Unavailable CCM Unavailable Summary Purpose Interface Exchange Insurance Providers Payer name Policy type / Coverage type Covered green party ID Effective Begin Date Effective End Date [employer] [facility] [place] Medicaid [id number] 2018 U nknown Family History Family History data not found Social History Social History Element Codes Description Effective Dates Marital status Unknown 06/28/[address]: [id number] Currently smokes tobacco 05/2013 Allergies, Adverse Reactions, [...] Fill Instructions gabapentin 300 mg capsule RxNorm: 423684 TAKE ONE CAPSULE BY [facility] TWICE A DAY 04/17/2020 No Stop Date Active MS Contin 200 mg tablet,extended release RxNorm: 993794 1 Tablet(s) Oral two times a day 04/16/2020 05/16/2020 Active cyclobenzaprine 10 mg tablet RxNorm: 300611 TAKE ONE TA BLET BY MOUTH THREE TIMES A DAY NEEDED 04/11/2020 No Stop Date Active potassium chloride ER 20 mEq tablet,extended release RxNorm: 225497 TAKE ONE TABLET BY MOUTH DAILY 04/11/2020 No Stop Date Active ProAir HFA 90 mcg/actuation aerosol inhaler RxNorm: 886506 INHALE ONE PUFF BY MOUTH EVERY 4 HOURS FOR WHEEZING OR FOR SHORTNESS OF BREATH 04/11/2020 No Stop Date Active Daliresp 500 mcg tablet RxNorm: 3983662 TAKE ONE TABLET BY MOUTH DAILY 04/11/2020 No Stop Date Active hydroxyzine HCl 50 mg tablet RxNorm: 365650 TAKE ONE TA BLET BY MOUTH TWICE A DAY WITH MORPHINE. *REPLACES BENADRYL* 04/11/2020 No Stop Date Active fluoxetine 20 mg capsule RxNorm: 042305 1 Capsule(s) Oral QD 201905/10/2020 Active fluoxetine 20 mg capsule RxNorm: 698379 1 Capsule(s) Oral QD 201904/09/2020 Inactive levothyroxine 25 mcg tablet RxNorm: 443173 TAKE ONE TAB LET BY MOUTH EVERY MORNING 04/09/2020 No Stop Date Active metformin 500 mg tablet RxNorm: 452139 1 Tablet(s) Oral QD 04/09/2007/08/2020 Active MS Contin 200 mg tablet,extended release RxNorm: 418690 1 Tablet(s) Oral two times a day 03/19/2020 04/15/2020 Inactive Relistor 150 mg tablet RxNorm: 0768399 TAKE THREE TABLETS BY BENOIT [facility] DAILY 03/13/2020 No Stop Date Active furosemide 40 mg tablet RxNorm: 923433 TAKE ONE TABLET BY MOUTH EVERY MORNING 03/13/2020 No Stop Date Active cyclobenzaprine 10 mg tablet RxNorm: 385033 TAKE ONE TA BLET BY MOUTH THREE TIMES A DAY NEEDED 03/13/2020 04/10/2020 Inactive prednisone 1 mg tablet RxNorm: 178931 1 Tablet(s) Oral two times a day to take with hydroxyzine 03/12/2020 No Stop Date Active hydroxyzine HCl 50 mg tablet RxNorm: 288644 1 Tablet(s) Oral two times a day to take with morphine--replaces benadryl 03/12/2020 04/10/2020 Inactive prednisolone 5 mg tablet RxNorm: 106836 1 Tablet(s) Oral two ti mes a day 02/22/2020 03/23/2020 Inactive prednisolone 5 mg tablet RxNorm: 869371 1 Tablet(s) Oral two ti mes a day 02/22/2020 02/21/2020 Inactive Symbicort 160 mcg-4.5 mcg/actuation HFA aerosol inhaler RxNo rm: 7308833 INHALE TWO PUFFS BY MOUTH TWICE A DAY 02/19/2020 No Stop Date Active Daliresp 500 mcg tablet RxNorm: 0199853 TAKE ONE TABLET BY MOUTH DAILY 02/19/2020 No Stop Date Active prednisone 20 mg tablet RxNorm: 267012 1 Tablet(s) Oral two yumi es a day 02/13/2020 02/20/2020 Inactive oxycodone 30 mg tablet RxNorm: 0872036 1 Tablet(s) Oral four times a day replaces MS Contin 02/13/2020 02/22/2020 Inactive levothyroxine 25 mcg tablet RxNorm: 031204 TAKE ONE TAB LET BY MOUTH EVERY MORNING 02/09/2020 04/08/2020 Inactive MS Contin 200 mg tablet,extended release RxNorm: 281879 1 Tablet(s) Oral two times a day 02/01/2020 03/01/2020 Inactive Premarin 0.45 mg tablet RxNorm: 324691 TAKE ONE TABLET BY MOUTH DAILY 01/31/2020 No Stop Date Active cyclobenzaprine 10 mg tablet RxNorm: 786312 TAKE ONE TA BLET BY MOUTH THREE TIMES A DAY NEEDED 01/31/2020 03/12/2020 Inactive metformin 500 mg tablet RxNorm: 198031 1 Tablet(s) Oral QD 01/31/2004/08/2020 Inactive gabapentin 300 mg capsule RxNorm: 633284 TAKE ONE CAPSULE BY [facility] TWICE A DAY 01/16/2020 04/16/2020 Inactive potassium chloride ER 20 mEq tablet,extended release RxNorm: 291167 TAKE ONE TABLET BY MOUTH DAILY 01/08/2020 07/05/2020 Active ProAir HFA 90 mcg/actuation aerosol inhaler RxNorm: 826813 INHALE ONE PUFF BY MOUTH EVERY 4 HOURS FOR WHEEZING OR FOR SHORTNESS OF BREATH 01/04/2020 04/10/2020 Inactive metformin 500 mg tablet RxNorm: 198962 1 Tablet(s) Oral QD 01/04/2004/09/2020 Inactive MS Contin 200 mg tablet,extended release RxNorm: 775847 1 Tablet(s) Oral two times a day 01/02/2020 01/31/2020 Inactive Pulmicort 1 mg/2 mL suspension for nebulization RxNorm: 6168 19 USE ONE VIAL VIA NEBULIZER BY MOUTH TWICE A DAY 12/21/2019 No Stop Date Active furosemide 40 mg tablet RxNorm: 628868 TAKE ONE TABLET BY MOUTH EVERY MORNING NEEDED 12/20/2019 03/12/2020 Inactive levothyroxine 25 mcg tablet RxNorm: 773390 TAKE ONE TAB LET BY MOUTH EVERY MORNING 12/20/2019 02/08/2020 Inactive MS Contin 200 mg tablet,extended release RxNorm: 880399 1 Tablet(s) Oral two times a day 12/05/2019 01/01/2020 Inactive Medrol (Aníbal) 4 mg tablets in a dose pack RxNorm: 268649 6 Tablet(s) Oral QD --then as directed 11/30/2019 12/05/2019 Inactive MS Contin 200 mg tablet,extended release RxNorm: 963987 1 Tablet(s) Oral two times a day 11/29/2019 12/04/2019 Inactive cyclobenzaprine 10 mg tablet RxNorm: 538448 TAKE ONE TA BLET BY MOUTH THREE TIMES A DAY NEEDED 11/21/2019 01/30/2020 Inactive MS Contin 200 mg tablet,extended release RxNorm: 114073 1 Tablet(s) Oral two times a day replaces 100mg dose 11/03/2019 11/02/2019 Inactive MS Contin 200 mg tablet,extended release RxNorm: 801360 1 Tablet(s) Oral two times a day replaces 100mg dose 11/03/2019 11/29/2019 Inactive ferrous sulfate 325 mg (65 mg iron) tablet RxNorm: 058895 1 Tab let(s) Oral QD 10/30/2019 No Stop Date Active MS Contin 100 mg tablet,extended release RxNorm: 543009 1 Table t(s) Oral QD 10/30/2019 10/29/2019 Inactive MS Contin 100 mg tablet,extended release RxNorm: 554587 1 Table t(s) Oral QD 10/30/2019 11/02/2019 Inactive pantoprazole 40 mg tablet,delayed release RxNorm: 666410 1 Tabl et(s) Oral QD 10/25/2019 No Stop Date Active Minipress 2 mg capsule RxNorm: 526840 1 Capsule(s) Oral QAM and 3 at bedtime 10/25/2019 No Stop Date Active Lancets, Super Thin RxNorm: 1 Unit Dose Miscellaneous QD 9 11/27/2020 Active Relistor 150 mg tablet RxNorm: 3620845 TAKE THREE TABLETS BY BENOIT TH DAILY 10/25/2019 03/12/2020 Inactive oxycodone 15 mg tablet RxNorm: 2788403 1 Tablet(s) Oral four times a day as needed for pain 10/25/2019 11/28/2019 Inactive metformin 500 mg tablet RxNorm: 049486 1 Tablet(s) Oral QD 10/25/20 19 01/03/2020 Inactive levothyroxine 25 mcg tablet RxNorm: 056776 1 Tablet(s) Oral QAM 02/201912/19/2019 Inactive levothyroxine 25 mcg tablet RxNorm: 909135 1 Tablet(s) Oral QAM 02/201910/24/2019 Inactive MS Contin 100 mg tablet,extended release RxNorm: 820035 1 Tablet(s) Oral two times a day replaces fentanyl 10/25/2019 10/25/2019 Inactive Cymbalta 60 mg capsule,delayed release RxNorm: 060647 1 Capsule (s) Oral QAM 10/25/2019 04/09/2020 Inactive Cymbalta 30 mg capsule,delayed release RxNorm: 587927 1 Capsule (s) Oral QAM 10/25/2019 04/09/2020 Inactive Premarin 0.45 mg tablet RxNorm: 447927 TAKE ONE TABLET BY MOUTH DAILY 10/24/2019 01/30/2020 Inactive Duragesic 100 mcg/hr transdermal patch RxNorm: 006555 2 Application TD Q48H for pain 10/18/2019 10/24/2019 Inactive gabapentin 300 mg capsule RxNorm: 415079 TAKE ONE CAPSULE BY MO U[facility] TWICE A DAY 10/16/2019 01/15/2020 Inactive cyclobenzaprine 10 mg tablet RxNorm: 936289 TAKE ONE TA BLET BY MOUTH THREE TIMES A DAY NEEDED 09/27/2019 11/20/2019 Inactive Relistor 150 mg tablet RxNorm: 1261953 TAKE THREE TABLETS BY BENOIT TH DAILY 09/25/2019 10/24/2019 Inactive ProAir HFA 90 mcg/actuation aerosol inhaler RxNorm: 443090 INHALE ONE PUFF BY MOUTH EVERY 4 HOURS FOR WHEEZING OR FOR SHORTNESS OF BREATH 09/25/2019 01/03/2020 Inactive furosemide 40 mg tablet RxNorm: 731700 1 Tablet(s) Oral QAM as needed 09/25/2019 09/25/2019 Inactive oxycodone 15 mg tablet RxNorm: 2438770 1 Tablet(s) PO QID as nee ded for pain 09/21/2019 10/24/2019 Inactive Duragesic 100 mcg/hr transdermal patch RxNorm: 886714 2 Application TD Q48H for pain 09/19/2019 10/17/2019 Inactive Daliresp 500 mcg tablet RxNorm: 9678220 1 Tablet(s) Oral QD 019 02/18/2020 Inactive Relistor 150 mg tablet RxNorm: 0818215 TAKE THREE TABLETS BY BENOIT TH DAILY 07/25/2019 07/30/2019 Inactive cyclobenzaprine 10 mg tablet RxNorm: 092676 TAKE ONE TA BLET BY MOUTH THREE TIMES A DAY NEEDED 07/25/2019 09/22/2019 Inactive potassium chloride ER 20 mEq tablet,extended release RxNorm: 941149 TAKE ONE TABLET BY MOUTH DAILY 07/25/2019 01/07/2020 Inactive fluoxetine 40 mg capsule RxNorm: 914991 TAKE ONE CAPSULE BY BENOIT TH EVERY MORNING 07/11/2019 10/24/2019 Inactive Medrol (Aníbal) 4 mg tablets in a dose pack RxNorm: 702592 6 Tablet(s) PO QD --then as directed 07/10/2019 07/15/2019 Inactive omeprazole 40 mg capsule,delayed release RxNorm: 974146 1 Capsule(s) PO QD for stomach TAKE ONE CAPSULE BY MOUTH DAILY 07/10/2019 10/24/2019 Inactive Augmentin 875 mg-125 mg tablet RxNorm: 890369 1 Tablet(s) PO BID 07/16/2019 Inactive Trulicity 0.75 mg/0.5 mL subcutaneous pen injector RxNorm: 1 740805 0.75 Milliliter(s) SQ weekly 07/05/2019 10/24/2019 Inactive Compazine 10 mg tablet RxNorm: 447098 TAKE ONE TABLET B Y MOUTH FOUR TIMES A DAY NEEDED FOR NAUSEA 06/20/2019 07/19/2019 Inactive ProAir HFA 90 mcg/actuation aerosol inhaler RxNorm: 635666 INHALE ONE PUFF BY MOUTH EVERY 4 HOURS FOR WHEEZING OR FOR SHORTNESS OF BREATH 06/20/2019 06/23/2019 Inactive Daliresp 500 mcg tablet RxNorm: 6617298 TAKE ONE TABLET BY MOUTH DAILY 06/12/2019 09/10/2019 Inactive zlwlowps-itotycvoj-bqnoexnzp 3.5 mg/mL-10,000 unit/mL- 1 % ear solution RxNorm: 370417 4 Drop(s) otic (ear) TID to left ear 06/05/2019 10/24/2019 Inac tive furosemide 40 mg tablet RxNorm: 279411 TAKE ONE TABLET BY MOUTH EVERY MORNING 05/26/2019 07/09/2019 Inactive Duragesic 100 mcg/hr transdermal patch RxNorm: 318331 2 Application TD Q48H for pain 05/16/2019 06/14/2019 Inactive oxycodone 15 mg tablet RxNorm: 5865942 1 Tablet(s) PO QID as nee ded for pain 05/10/2019 09/20/2019 Inactive doxycycline hyclate 100 mg capsule RxNorm: 9944619 1 Capsule(s) PO BID 05/03/2019 05/12/2019 Inactive prednisone 20 mg tablet RxNorm: 732718 1 Tablet(s) PO T ID for 3 days then 1 po BID for 3 days then one daily for 3 days 05/03/2019 07/11/2019 Inactiv e Ozempic 0.25 mg or 0.5 mg (2 mg/1.5 mL) subcutaneous p en injector RxNorm: 7692837 0.5 Milligram(s) SQ QW 05/03/2019 07/09/2019 Inactive fluconazole 100 mg tablet RxNorm: 314895 1 Tablet(s) PO QD 05/03/2005/07/2019 Inactive Premarin 0.45 mg tablet RxNorm: 676038 TAKE ONE TABLET BY MOUTH DAILY 05/03/2019 10/23/2019 Inactive potassium chloride ER 20 mEq tablet,extended release RxNorm: 922190 1 Tablet(s) PO QD 04/27/2019 07/25/2019 Inactive potassium chloride ER 20 mEq tablet,extended release RxNorm: 444487 1 Tablet(s) PO QD 04/25/2019 04/26/2019 Inactive Compazine 10 mg tablet RxNorm: 406658 1 Tablet(s) PO QID as nee ded for nausea 04/25/2019 05/04/2019 Inactive ProAir HFA 90 mcg/actuation aerosol inhaler RxNorm: 897344 INHALE ONE PUFF BY MOUTH EVERY 4 HOURS FOR WHEEZING OR FOR SHORTNESS OF BREATH 04/12/2019 06/10/2019 Inactive Medrol (Aníbal) 4 mg tablets in a dose pack RxNorm: 642098 6 Tablet(s) PO QD --then as directed 04/11/2019 04/16/2019 Inactive Symbicort 160 mcg-4.5 mcg/actuation HFA aerosol inhaler RxNo rm: 8443526 2 Puff(s) INH BID 04/10/2019 10/06/2019 Inactive levothyroxine 50 mcg tablet RxNorm: 686073 1 Tablet(s) PO QD 201810/24/2019 Inactive gabapentin 300 mg capsule RxNorm: 063729 1 Capsule(s) PO BID 201810/02/2019 Inactive Symbicort 160 mcg-4.5 mcg/actuation HFA aerosol inhaler RxNo rm: 9583244 2 Puff(s) INH BID 04/06/2019 04/09/2019 Inactive oxycodone 15 mg tablet RxNorm: 1803080 1 Tablet(s) PO QID as nee ded for pain 04/05/2019 05/09/2019 Inactive levothyroxine 50 mcg tablet RxNorm: 166698 1 Tablet(s) PO QD 201804/09/2019 Inactive furosemide 40 mg tablet RxNorm: 151988 TAKE ONE TABLET BY MOUTH EVERY MORNING 03/21/2019 04/19/2019 Inactive levothyroxine 50 mcg tablet RxNorm: 453069 TAKE ONE TABLET BY M OUTH DAILY 03/21/2019 03/27/2019 Inactive Duragesic 100 mcg/hr transdermal patch RxNorm: 724923 2 Application TD Q48H for pain 03/13/2019 04/11/2019 Inactive oxycodone 15 mg tablet RxNorm: 7662807 1 Tablet(s) PO QID as nee ded for pain 03/06/2019 04/04/2019 Inactive Relistor 150 mg tablet RxNorm: 4674623 3 Tablet(s) PO QD 02/28/2019 0 05/28/2019 Inactive cyclobenzaprine 10 mg tablet RxNorm: 226792 1 Tablet(s) PO TID as needed 02/28/2019 05/28/2019 Inactive phentermine 37.5 mg tablet RxNorm: 159092 1 Tablet(s) PO QAM 201803/15/2019 Inactive Duragesic 100 mcg/hr transdermal patch RxNorm: 000641 2 Application TD Q48H for pain 02/09/2019 03/10/2019 Inactive Daliresp 500 mcg tablet RxNorm: 1606979 TAKE ONE TABLET BY MOUTH DAILY 01/31/2019 05/30/2019 Inactive Premarin 0.45 mg tablet RxNorm: 991170 1 Tablet(s) PO QD 01/31/2019 0 04/30/2019 Inactive fluoxetine 40 mg capsule RxNorm: 663639 Capsule(s) TAKE ONE CAPSULE BY MOUTH EVERY MORNING 01/31/2019 04/30/2019 Inactive levothyroxine 50 mcg tablet RxNorm: 930153 1 Tablet(s) PO QD 201804/10/2019 Inactive follow up in 3 weeks levothyroxine 50 mcg tablet RxNorm: 880879 1 Tablet(s) PO QD 201801/25/2019 Inactive follow up in 3 weeks potassium chloride ER 20 mEq tablet,extended release RxNorm: 797970 2 Tablet(s) PO BID 01/23/2019 01/08/2020 Inactive Synthroid 50 mcg tablet RxNorm: 149757 TAKE ONE TABLET BY MOUTH DAILY 01/16/2019 10/24/2019 Inactive potassium chloride ER 20 mEq tablet,extended release RxNorm: 237360 2 Tablet(s) PO BID 01/04/2019 01/22/2019 Inactive ProAir HFA 90 mcg/actuation aerosol inhaler RxNorm: 648166 INHALE ONE PUFF BY MOUTH EVERY 4 HOURS FOR WHEEZING OR SHORTNESS OF BREATH 01/04/201902/20 Inactive Request already responded to by other me ans (e.g. phone or fax) ProAir HFA 90 mcg/actuation aerosol inhaler RxNorm: 7232563 INHALE ONE PUFF BY MOUTH EVERY 4 HOURS FOR WHEEZING OR SHORTNESS OF BREATH 01/02/201912/23 Inactive gabapentin 300 mg capsule RxNorm: 088025 TAKE ONE CAPSULE BY MO UTH TWICE A DAY 12/30/2018 04/06/2019 Inactive furosemide 40 mg tablet RxNorm: 769049 1 Tablet(s) PO QAM 12/26/2018 02/23/2019 Inactive Compazine 10 mg tablet RxNorm: 685297 1 Tablet(s) PO QID as nee ded for nausea 12/07/2018 12/16/2018 Inactive metolazone 2.5 mg tablet RxNorm: 400219 TAKE ONE TABLET BY MOUT H EVERY MORNING 12/05/2018 01/03/2019 Inactive metformin ER 500 mg tablet,extended release 24 hr RxNorm: 86 0975 TAKE ONE TABLET BY MOUTH DAILY 12/05/2018 01/31/2020 Inactive Synthroid 50 mcg tablet RxNorm: 521721 1 Tablet(s) PO QD 11/25/2018 0 01/03/2019 Inactive DC any other synthroid strengths. Should be 50mcg only cyclobenzaprine 10 mg tablet RxNorm: 242840 TAKE ONE TA BLET BY MOUTH THREE TIMES A DAY NEEDED 11/09/2018 02/06/2019 Inactive metolazone 2.5 mg tablet RxNorm: 678559 1 Tablet(s) PO QAM repl aces 5mg dose 11/02/2018 12/01/2018 Inactive potassium chloride ER 20 mEq tablet,extended release RxNorm: 226181 2 Tablet(s) PO QD 2018 01/02/2019 Inactive Compazine 10 mg tablet RxNorm: 494981 1 Tablet(s) PO QID as nee ded for nausea 10/18/2018 12/07/2018 Inactive furosemide 40 mg tablet RxNorm: 547797 1 Tablet(s) PO QAM 10/12/2018 12/10/2018 Inactive ondansetron 8 mg disintegrating tablet RxNorm: 591719 1 Tablet(s) PO Q6H as needed 10/11/2018 10/17/2018 Inactive scopolamine 1 mg over 3 days transdermal patch RxNorm: 57990 2 1 Application TD behind ear. Take off after three days 10/11/2018 01/02/2019 Inactive furosemide 40 mg tablet RxNorm: 423386 1 Tablet(s) PO QAM 10/10/2018 12/26/2018 Inactive metolazone 5 mg tablet RxNorm: 050775 1 Tablet(s) PO QAM 10/06/2018 1 01/03/2018 Inactive metolazone 5 mg tablet RxNorm: 046309 1 Tablet(s) PO QAM 10/06/2018 1 12/05/2017 Inactive Xtampza ER 36 mg capsule sprinkle RxNorm: 2989531 1 Capsule(s) P O BID 10/05/2018 01/02/2019 Inactive Xtampza ER 36 mg capsule sprinkle RxNorm: 6366370 1 Capsule(s) P O BID 10/05/2018 02/12/2019 Inactive omeprazole 40 mg capsule,delayed release RxNorm: 645863 TAKE ONE CAPSULE BY MOUTH DAILY 10/03/2018 12/31/2018 Inactive Duragesic 100 mcg/hr transdermal patch RxNorm: 940507 2 Application TD Q48H for pain 09/30/2018 10/29/2018 Inactive Synthroid 50 mcg tablet RxNorm: 645095 1 Tablet(s) PO QD 09/29/2018 0 11/25/2018 Inactive DC any other synthroid strengths. Should be 50mcg only Synthroid 50 mcg tablet RxNorm: 926754 1 Tablet(s) PO QD 09/29/2018 1 11/28/2017 Inactive furosemide 40 mg tablet RxNorm: 119743 2 Tablet(s) PO Q AM for 1 week then every other day for 2 weeks 09/27/2018 10/12/2018 Inactive fluoxetine 40 mg capsule RxNorm: 930057 2 Capsule(s) PO QD 09/27/20 18 10/17/2018 Inactive potassium chloride ER 20 mEq tablet,extended release RxNorm: 685359 2 Tablet(s) PO QD for 1 week then every other day for 2 weeks 09/27/2018 2018 Inactive ProAir HFA 90 mcg/actuation aerosol inhaler RxNorm: 2670920 INHALE ONE PUFF BY MOUTH EVERY 4 HOURS FOR WHEEZING OR SHORTNESS OF BREATH 09/26/201811/23 Inactive Synthroid 75 mcg tablet RxNorm: 351384 1 Tablet(s) PO QD 09/09/2018 1 Inactive Synthroid 75 mcg tablet RxNorm: 246727 1 Tablet(s) PO QD 09/09/2018 1 11/28/2017 Inactive furosemide 40 mg tablet RxNorm: 966436 1 Tablet(s) PO QD 09/06/2018 1 Inactive potassium chloride ER 20 mEq tablet,extended release RxNorm: 011322 1 Tablet(s) PO QD 09/06/2018 09/19/2018 Inactive Duragesic 100 mcg/hr transdermal patch RxNorm: 197557 2 Application TD Q48H for pain 08/30/2018 09/28/2018 Inactive gabapentin 300 mg capsule RxNorm: 300400 TAKE ONE CAPSULE BY [facility] TWICE A DAY 08/23/2018 12/20/2018 Inactive Daliresp 500 mcg tablet RxNorm: 2627077 TAKE ONE TABLET BY MOUTH DAILY 08/23/2018 01/19/2019 Inactive Pulmicort 1 mg/2 mL suspension for nebulization RxNorm: 6168 19 USE ONE VIAL VIA NEBULIZER BY MOUTH TWICE A DAY 08/23/2018 07/11/2019 Inactive Synthroid 88 mcg tablet RxNorm: 656198 1 Tablet(s) PO QD 08/19/2018 1 Inactive Medrol (Aníbal) 4 mg tablets in a dose pack RxNorm: 053086 Tablet(s) PO take as directed 08/16/2018 09/05/2018 Inactive Relistor 150 mg tablet RxNorm: 0591517 3 Tablet(s) PO QD 08/16/2018 1 Inactive Zithromax Z-Aníbal 250 mg tablet RxNorm: 122860 Tablet(s) PO take as directed 08/16/2018 09/05/2018 Inactive cyclobenzaprine 10 mg tablet RxNorm: 152999 1 Tablet(s) PO TID as needed 08/16/2018 11/08/2018 Inactive Synthroid 88 mcg tablet RxNorm: 456025 1 Tablet(s) PO Q D NEEDS UPDATED LABS BEFORE FURTHER REFILLS 08/08/2018 08/19/2018 Inactive Premarin 0.45 mg tablet RxNorm: 378815 1 Tablet(s) PO QD 08/03/2018 0 01/31/2019 Inactive fluoxetine 20 mg capsule RxNorm: 166391 TAKE ONE CAPSULE BY BENOIT TH DAILY 08/03/2018 09/26/2018 Inactive Xtampza ER 36 mg capsule sprinkle RxNorm: 2602464 1 Capsule(s) P O BID 08/03/2018 09/01/2018 Inactive metformin ER 500 mg tablet,extended release 24 hr RxNorm: 86 0975 1 Tablet(s) PO QD 08/03/2018 10/31/2018 Inactive Symbicort 160 mcg-4.5 mcg/actuation HFA aerosol inhaler RxNo rm: 1802310 2 Puff(s) INH BID 08/03/2018 01/29/2019 Inactive Duragesic 100 mcg/hr transdermal patch RxNorm: 697526 2 Application TD Q48H for pain 07/29/2018 08/27/2018 Inactive ProAir HFA 90 mcg/actuation aerosol inhaler RxNorm: 467896 INHALE TWO PUFFS BY MOUTH EVERY 4 HOURS FOR WHEEZING OR SHORTNESS OF BREATH 07/27/201802/2018 Inactive Relistor 150 mg tablet RxNorm: 5518874 3 Tablet(s) PO QD 07/20/2018 0 08/15/2018 Inactive metformin ER 500 mg tablet,extended release 24 hr RxNorm: 86 0975 TAKE ONE TABLET BY MOUTH DAILY 07/08/2018 08/02/2018 Inactive fluoxetine 40 mg capsule RxNorm: 889588 TAKE ONE CAPSULE BY BENOIT TH EVERY MORNING 07/08/2018 10/05/2018 Inactive Xtampza ER 18 mg capsule sprinkle RxNorm: 8503684 1 Capsule(s) P O BID 07/08/2018 08/02/2018 Inactive Relistor 150 mg tablet RxNorm: 5384090 3 Tablet(s) PO QD 07/08/2018 0 07/12/2018 Inactive Synthroid 88 mcg tablet RxNorm: 052100 1 Tablet(s) PO Q D NEEDS UPDATED LABS BEFORE FURTHER REFILLS 06/23/2018 07/07/2018 Inactive fluoxetine 40 mg capsule RxNorm: 607853 TAKE ONE CAPSULE BY BENOIT TH EVERY MORNING 06/15/2018 09/26/2018 Inactive orphenadrine citrate ER 100 mg tablet,extended release RxNor m: 413228 TAKE ONE TABLET BY MOUTH TWICE A DAY FOR MUSCLE SPASM 06/15/2018 08/15/2018 Renu ctive Duragesic 100 mcg/hr transdermal patch RxNorm: 342115 2 Application TD Q48H for pain 05/30/2018 06/28/2018 Inactive ProAir HFA 90 mcg/actuation aerosol inhaler RxNorm: 475421 INHALE TWO PUFFS BY MOUTH EVERY 4 HOURS FOR WHEEZING OR SHORTNESS OF BREATH 05/19/20180 03/2018 Inactive Chantix Continuing Month Box 1 mg tablet RxNorm: 567522 TAKE ONE TABLET BY MOUTH TWICE A DAY 05/19/2018 08/15/2018 Inactive oxycodone 10 mg tablet RxNorm: 7537689 1-2 Tablet(s) PO QID as n eeded for pain 05/19/2018 07/07/2018 Inactive gabapentin 300 mg capsule RxNorm: 334302 TAKE ONE CAPSULE BY MO UTH TWICE A DAY 05/18/2018 07/16/2018 Inactive ProAir HFA 90 mcg/actuation aerosol inhaler RxNorm: 135922 INHALE TWO PUFFS BY MOUTH EVERY 4 HOURS FOR WHEEZING OR SHORTNESS OF BREATH 05/04/201804/23 Inactive Augmentin 500 mg-125 mg tablet RxNorm: 599056 1 Tablet(s) PO BID 05/03/2018 Inactive oxycodone 10 mg tablet RxNorm: 0408598 1-2 Tablet(s) PO QID as n eeded for pain 04/21/2018 05/18/2018 Inactive Synthroid 88 mcg tablet RxNorm: 087175 1 Tablet(s) PO QD 04/15/2018 0 08/08/2018 Inactive Symbicort 160 mcg-4.5 mcg/actuation HFA aerosol inhaler RxNo rm: 5087309 2 Puff(s) INH BID 04/15/2018 04/10/2019 Inactive Premarin 0.45 mg tablet RxNorm: 028488 1 Tablet(s) PO QD 04/15/2018 0 08/03/2018 Inactive ProAir HFA 90 mcg/actuation aerosol inhaler RxNorm: 402879 2 Puff(s) INH Q4H prn for wheezing or shortness of breath 04/15/2018 05/03/2018 Inactive metformin ER 500 mg tablet,extended release 24 hr RxNorm: 86 0975 1 Tablet(s) PO QD 04/11/2018 07/07/2018 Inactive omeprazole 40 mg capsule,delayed release RxNorm: 152706 TAKE ONE CAPSULE BY MOUTH DAILY 04/10/2018 06/08/2018 Inactive Synthroid 88 mcg tablet RxNorm: 720722 1 Tablet(s) PO QD 04/04/2018 0 04/14/2018 Inactive Synthroid 88 mcg tablet RxNorm: 219247 1 Tablet(s) PO QD 04/04/2018 0 04/03/2018 Inactive orphenadrine citrate ER 100 mg tablet,extended release RxNor m: 152554 1 Tablet(s) PO BID for muscle spasm 04/04/2018 05/03/2018 Inactive metformin ER 500 mg tablet,extended release 24 hr RxNorm: 86 0975 1 Tablet(s) PO QD NEEDS UPDATED LABS 03/31/2018 04/11/2018 Inactive doxycycline hyclate 100 mg capsule RxNorm: 6003105 1 Capsule(s) PO BID 03/31/2018 04/09/2018 Inactive prednisone 20 mg tablet RxNorm: 492929 3 Tablet(s) PO T ID for 3 days then 1 po BID for 3 days then one daily for 3 days 03/31/2018 07/06/2018 Inactiv e Chantix Continuing Month Box 1 mg tablet RxNorm: 927788 TAKE ONE TABLET BY MOUTH TWICE A DAY 03/25/2018 03/30/2018 Inactive oxycodone 10 mg tablet RxNorm: 1838338 1-2 Tablet(s) PO QID as n eeded for pain 03/21/2018 04/20/2018 Inactive Daliresp 500 mcg tablet RxNorm: 4516461 1 Tablet(s) PO QD 03/15/2018 08/22/2018 Inactive metformin ER 500 mg tablet,extended release 24 hr RxNorm: 86 0975 1 Tablet(s) PO QD NEEDS UPDATED LABS 03/14/2018 03/31/2018 Inactive nystatin 100,000 unit/mL oral suspension RxNorm: 847658 5 Chio liter(s) PO QID 03/02/2018 03/15/2018 Inactive nystatin 100,000 unit/mL oral suspension RxNorm: 115477 5 Chio liter(s) PO QID 03/02/2018 03/01/2018 Inactive oxycodone 10 mg tablet RxNorm: 3674431 1-2 Tablet(s) PO QID as n eeded for pain 02/16/2018 03/20/2018 Inactive fluoxetine 20 mg capsule RxNorm: 488777 1 Capsule(s) PO QD 02/15/20 18 08/02/2018 Inactive metformin ER 500 mg tablet,extended release 24 hr RxNorm: 86 0975 1 Tablet(s) PO QD Needs updated labs 02/14/2018 03/14/2018 Inactive cefdinir 300 mg capsule RxNorm: 831011 1 Capsule(s) PO BID 01/27/20 18 02/04/2018 Inactive orphenadrine citrate ER 100 mg tablet,extended release RxNor m: 662691 1 Tablet(s) PO BID for muscle spasm 01/26/2018 04/04/2018 Inactive gabapentin 300 mg capsule RxNorm: 262288 1 Capsule(s) PO BID 201704/17/2018 Inactive oxycodone 10 mg tablet RxNorm: 6403498 1-2 Tablet(s) PO QID as n eeded for pain 01/17/2018 02/15/2018 Inactive Duragesic 100 mcg/hr transdermal patch RxNorm: 097962 2 Application TD Q48H for pain 01/17/2018 02/15/2018 Inactive gabapentin 300 mg capsule RxNorm: 251863 TAKE ONE CAPSULE BY MO UTH TWICE A DAY 12/20/2017 01/18/2018 Inactive fluoxetine 40 mg capsule RxNorm: 355044 TAKE ONE CAPSULE BY BENOIT TH EVERY MORNING 12/15/2017 03/14/2018 Inactive OneTouch Ultra Test strips RxNorm: TEST DAILY 11/04/2017 02/01/2018 Inactive gabapentin 300 mg capsule RxNorm: 092708 1 Capsule(s) P O TID replaces BID dosing 10/26/2017 02/22/2018 Inactive oxycodone 10 mg tablet RxNorm: 4303548 1-2 Tablet(s) PO QID as n eeded for pain 10/18/2017 01/16/2018 Inactive Duragesic 100 mcg/hr transdermal patch RxNorm: 125854 2 Application TD Q48H for pain 10/18/2017 11/16/2017 Inactive gabapentin 300 mg capsule RxNorm: 727479 1 Capsule(s) PO BID 201610/25/2017 Inactive Abilify 5 mg tablet RxNorm: 484545 1 Tablet(s) PO QAM 09/23/201702/2017 Inactive gabapentin 300 mg capsule RxNorm: 231668 1 Capsule(s) PO BID 201610/17/2017 Inactive oxycodone 10 mg tablet RxNorm: 1661412 1-2 Tablet(s) PO QID as n eeded for pain 09/15/2017 10/17/2017 Inactive Duragesic 100 mcg/hr transdermal patch RxNorm: 128854 2 Application TD Q48H for pain 09/15/2017 10/14/2017 Inactive Duragesic 100 mcg/hr transdermal patch RxNorm: 829787 2 Application TD Q48H for pain 09/15/2017 10/24/2019 Inactive oxycodone 10 mg tablet RxNorm: 5660113 1-2 Tablet(s) PO QID as n eeded for pain 09/15/2017 08/15/2018 Inactive Daliresp 500 mcg tablet RxNorm: 0120752 1 Tablet(s) PO QD 09/06/2017 03/15/2018 Inactive Ventolin HFA 90 mcg/actuation aerosol inhaler RxNorm: 001621 2 Puff(s) INH Q4H as needed 09/02/2017 05/19/2018 Inactive oxycodone 10 mg tablet RxNorm: 6150032 1-2 Tablet(s) PO QID as n eeded for pain 08/17/2017 09/14/2017 Inactive Duragesic 100 mcg/hr transdermal patch RxNorm: 994492 2 Application TD Q48H for pain 08/17/2017 09/14/2017 Inactive fluoxetine 40 mg capsule RxNorm: 850312 Capsule(s) TAKE ONE CAPSULE BY MOUTH EVERY MORNING 08/17/2017 12/14/2017 Inactive Pulmicort 1 mg/2 mL suspension for nebulization RxNorm: 6168 19 1 Unit Dose INH BID Dx: COPD (J44.9) 08/16/2017 08/22/2018 Inactive gabapentin 300 mg capsule RxNorm: 169551 1 Capsule(s) PO QHS 201610/18/2017 Inactive fluoxetine 20 mg capsule RxNorm: 881622 1 Capsule(s) PO QD 08/12/20 17 02/14/2018 Inactive Abilify 2 mg tablet RxNorm: 936365 1 Tablet(s) PO QD TA KE ONE TABLET BY MOUTH DAILY 08/12/2017 10/25/2017 Inactive metformin ER 500 mg tablet,extended release 24 hr RxNorm: 86 0975 1 Tablet(s) PO QD 08/10/2017 02/14/2018 Inactive Synthroid 112 mcg tablet RxNorm: 453404 1 Tablet(s) PO QD 08/10/2017 04/15/2018 Inactive oxycodone 10 mg tablet RxNorm: 3302481 1-2 Tablet(s) PO QID as n eeded for pain 07/19/2017 08/16/2017 Inactive Duragesic 100 mcg/hr transdermal patch RxNorm: 769293 2 Application TD Q48H for pain 07/19/2017 08/16/2017 Inactive Ventolin HFA 90 mcg/actuation aerosol inhaler RxNorm: 222197 2 Puff(s) INH Q4H as needed 07/12/2017 09/02/2017 Inactive Abilify 2 mg tablet RxNorm: 972705 1 Tablet(s) PO QD TA KE ONE TABLET BY MOUTH DAILY 07/06/2017 08/11/2017 Inactive gabapentin 800 mg tablet RxNorm: 940282 1 Tablet(s) PO TID 06/22/20 17 07/05/2017 Inactive Chantix Starting Month Box 0.5 mg (11)-1 mg (42) table ts in dose pack RxNorm: 043989 TAKE BY MOUTH INSTRUCTED - PER PACKAGE INSTRUCTIONS 06/0707/04/2017 Inactive Ventolin HFA 90 mcg/actuation aerosol inhaler RxNorm: 003226 2 Puff(s) INH Q4H as needed 05/26/2017 07/12/2017 Inactive Duragesic 100 mcg/hr transdermal patch RxNorm: 029462 2 Application TD Q48H for pain 05/19/2017 06/17/2017 Inactive oxycodone 10 mg tablet RxNorm: 0795512 1-2 Tablet(s) PO QID as n eeded for pain 05/19/2017 07/18/2017 Inactive Abilify 2 mg tablet RxNorm: 074851 TAKE ONE TABLET BY MOUTH DAILY 0 05/10/2017 07/05/2017 Inactive Synthroid 112 mcg tablet RxNorm: 875628 1 Tablet(s) PO QD 05/06/2017 08/10/2017 Inactive metformin ER 500 mg tablet,extended release 24 hr RxNorm: 86 0975 1 Tablet(s) PO QD 05/06/2017 08/10/2017 Inactive Topamax 100 mg tablet RxNorm: 873391 1 Tablet(s) PO QHS 05/06/2017 Inactive Premarin 0.45 mg tablet RxNorm: 111778 1 Tablet(s) PO QD 05/06/2017 0 04/15/2018 Inactive orphenadrine citrate ER 100 mg tablet,extended release RxNor m: 544844 1 Tablet(s) PO TID for muscle spasm--replaces methocarbamol 04/29/2017 Inactive oxycodone 10 mg tablet RxNorm: 3163495 1-2 Tablet(s) PO QID as n eeded for pain 04/21/2017 05/18/2017 Inactive Duragesic 100 mcg/hr transdermal patch RxNorm: 303748 2 Application TD Q48H for pain 04/21/2017 05/18/2017 Inactive fluoxetine 40 mg capsule RxNorm: 723270 Capsule(s) TAKE ONE CAPSULE BY MOUTH EVERY MORNING 04/20/2017 08/17/2017 Inactive Ventolin HFA 90 mcg/actuation aerosol inhaler RxNorm: 306454 2 Puff(s) INH Q4H as needed 04/05/2017 05/26/2017 Inactive Symbicort 160 mcg-4.5 mcg/actuation HFA aerosol inhaler RxNo rm: 9329600 2 Puff(s) INH BID 03/30/2017 04/15/2018 Inactive Spiriva with HandiHaler 18 mcg and inhalation capsules RxNor m: 025806 1 Capsule(s) INH QD USING HANDIHALER 03/30/2017 02/12/2019 Inactive Duragesic 100 mcg/hr transdermal patch RxNorm: 044579 2 Application TD Q48H for pain 03/18/2017 04/16/2017 Inactive oxycodone 10 mg tablet RxNorm: 0126758 1-2 Tablet(s) PO QID as n eeded for pain 03/18/2017 04/20/2017 Inactive metformin ER 500 mg tablet,extended release 24 hr RxNorm: 86 0975 Tablet(s) TAKE ONE TABLET BY MOUTH DAILY 03/01/2017 05/06/2017 Inactive Premarin 0.45 mg tablet RxNorm: 335635 Tablet(s) TAKE ONE TABLE T BY MOUTH DAILY 03/01/2017 05/06/2017 Inactive Synthroid 112 mcg tablet RxNorm: 580088 Tablet(s) TAKE ONE TABLET BY MOUTH DAILY 03/01/2017 05/06/2017 Inactive Daliresp 500 mcg tablet RxNorm: 9378708 1 Tablet(s) PO QD 03/01/2017 09/06/2017 Inactive 16.2 mg-0.1037 mg-0.0194 mg tablet RxNorm: 5052356 Tablet(s) PO PRN for gas and cramping 02/23/2017 04/28/2017 Inactive TAKE TWO TABLET S BY MOUTH THREE TIMES A DAY NEEDED FOR GAS AND CRAMPING gabapentin 800 mg tablet RxNorm: 505068 1 Tablet(s) PO TID repl aces 600mg 02/23/2017 04/28/2017 Inactive Duragesic 100 mcg/hr transdermal patch RxNorm: 831156 2 Application TD Q48H for pain 02/17/2017 03/17/2017 Inactive fluoxetine 20 mg capsule RxNorm: 966077 1 Capsule(s) PO QD 02/18/20 17 08/12/2017 Inactive oxycodone 20 mg tablet RxNorm: 5127019 1 Tablet(s) PO QID as nee ded for pain 02/17/2017 03/17/2017 Inactive Ventolin HFA 90 mcg/actuation aerosol inhaler RxNorm: 145787 INHALE TWO PUFFS BY MOUTH EVERY 4 HOURS NEEDED 02/15/2017 04/05/2017 Inactive Silvadene 1 % topical cream RxNorm: 626433 1 Application TOP BI D to burn area 02/01/2017 09/22/2017 Inactive Topamax 100 mg tablet RxNorm: 348575 TAKE ONE TABLET BY MOUTH EVERY NIGHT AT BEDTIME 01/29/2017 05/06/2017 Inactive Chantix Starting Month Box 0.5 mg (11)-1 mg (42) table ts in dose pack RxNorm: 850528 Tablet(s) PO as directed 01/29/2017 06/01/2017 Inactive Abilify 2 mg tablet RxNorm: 753761 TAKE ONE TABLET BY MOUTH DAILY 0 01/26/2017 04/25/2017 Inactive Chantix Starting Month Box 0.5 mg (11)-1 mg (42) table ts in dose pack RxNorm: 427667 Tablet(s) PO as directed 01/20/2017 01/28/2017 Inactive gabapentin 600 mg tablet RxNorm: 935696 1 Tablet(s) PO TID 01/21/20 17 02/22/2017 Inactive Chantix Continuing Month Box 1 mg tablet RxNorm: 161163 1 Table t(s) PO BID 12/31/2016 06/01/2017 Inactive Spiriva with HandiHaler 18 mcg and inhalation capsules RxNor m: 257445 INHALE THE ENTIRE CONTENTS OF 1 CAPSULE ONCE A DAY USING HANDIHALER 12/31/201607/2017 Inactive Synthroid 112 mcg tablet RxNorm: 642073 TAKE ONE TABLET BY MOUT H DAILY 12/30/2016 03/01/2017 Inactive metformin ER 500 mg tablet,extended release 24 hr RxNorm: 86 0975 TAKE ONE TABLET BY MOUTH DAILY 12/30/2016 03/01/2017 Inactive Premarin 0.45 mg tablet RxNorm: 717184 TAKE ONE TABLET BY MOUTH DAILY 12/30/2016 03/01/2017 Inactive omeprazole 40 mg capsule,delayed release RxNorm: 877472 TAKE ONE CAPSULE BY MOUTH DAILY 12/30/2016 01/25/2018 Inactive Ventolin HFA 90 mcg/actuation aerosol inhaler RxNorm: 226254 INHALE TWO PUFFS BY MOUTH EVERY 4 HOURS NEEDED 12/28/2016 02/13/2017 Inactive fluoxetine 40 mg capsule RxNorm: 633065 TAKE ONE CAPSULE BY BENOIT TH EVERY MORNING 12/15/2016 04/20/2017 Inactive Chantix Continuing Month Box 1 mg tablet RxNorm: 452621 TAKE ONE TABLET BY MOUTH TWICE A DAY 12/04/2016 12/31/2016 Inactive doxycycline hyclate 100 mg capsule RxNorm: 0247996 1 Capsule(s) PO BID 12/01/2016 12/07/2016 Inactive Levaquin 750 mg tablet RxNorm: 028158 1 Tablet(s) PO QD 12/01/2016 Inactive Abilify 2 mg tablet RxNorm: 261219 TAKE ONE TABLET BY MOUTH DAILY 0 11/25/2016 11/30/2016 Inactive Ventolin HFA 90 mcg/actuation aerosol inhaler RxNorm: 587577 INHALE TWO PUFFS BY MOUTH EVERY 4 HOURS NEEDED 11/02/2016 12/19/2016 Inactive Chantix Continuing Month Box 1 mg tablet RxNorm: 274536 Tablet(s) PO as directed 10/30/2016 12/03/2016 Inactive Symbicort 160 mcg-4.5 mcg/actuation HFA aerosol inhaler RxNo rm: 5458329 INHALE TWO PUFFS TWO TIMES A DAY 10/30/2016 03/30/2017 Inactive Abilify 2 mg tablet RxNorm: 102293 1 Tablet(s) PO QD 10/27/201611/24 Inactive amoxicillin 500 mg capsule RxNorm: 252694 1 Capsule(s) PO TID 10/1410/23/2016 Inactive amoxicillin 500 mg capsule RxNorm: 967438 1 Capsule(s) PO TID 10/1410/13/2016 Inactive Synthroid 112 mcg tablet RxNorm: 308971 TAKE ONE TABLET BY MOUT H DAILY 09/28/2016 12/29/2016 Inactive Topamax 100 mg tablet RxNorm: 355506 TAKE ONE TABLET BY MOUTH EVERY NIGHT AT BEDTIME 09/28/2016 01/28/2017 Inactive Premarin 0.45 mg tablet RxNorm: 686582 TAKE ONE TABLET BY MOUTH DAILY 09/28/2016 12/29/2016 Inactive metformin ER 500 mg tablet,extended release 24 hr RxNorm: 86 0975 TAKE ONE TABLET BY MOUTH DAILY 09/28/2016 12/29/2016 Inactive Ventolin HFA 90 mcg/actuation aerosol inhaler RxNorm: 217159 INHALE TWO PUFFS BY MOUTH EVERY 4 HOURS NEEDED 09/22/2016 10/23/2016 Inactive Pulmicort 1 mg/2 mL suspension for nebulization RxNorm: 6168 19 1 Unit Dose INH BID Dx: COPD (J44.9) 09/10/2016 08/16/2017 Inactive Pulmicort 1 mg/2 mL suspension for nebulization RxNorm: 6168 19 1 Unit Dose INH BID 09/10/2016 09/09/2016 Inactive Brovana 15 mcg/2 mL solution for nebulization RxNorm: 879210 1 Unit Dose INH BID Dx: COPD (J44.9) 09/10/2016 01/25/2018 Inactive Brovana 15 mcg/2 mL solution for nebulization RxNorm: 502828 1 Unit Dose INH BID 09/10/2016 09/09/2016 Inactive ipratropium-albuterol 0.5 mg-3 mg(2.5 mg base)/3 mL ne bulization soln RxNorm: 6735970 1 Unit Dose INH Q4H as needed Dx: COPD (J44.9) 09/10/2016 0 02/12/2019 Inactive orphenadrine citrate ER 100 mg tablet,extended release RxNor m: 038933 1 Tablet(s) PO BID for muscle spasm--replaces methocarbamol 09/09/2016 Inactive Chantix Continuing Month Box 1 mg tablet RxNorm: 426009 Tablet(s) PO as directed 09/09/2016 10/30/2016 Inactive orphenadrine citrate ER 100 mg tablet,extended release RxNor m: 146365 1 Tablet(s) PO BID for muscle spasm 09/09/2016 09/08/2016 Inactive Spiriva with HandiHaler 18 mcg and inhalation capsules RxNor m: 550217 INHALE THE ENTIRE CONTENTS OF 1 CAPSULE ONCE A DAY USING HANDIHALER 09/01/201605/2017 Inactive Daliresp 500 mcg tablet RxNorm: 0631842 1 Tablet(s) PO QD 08/27/2016 03/01/2017 Inactive prednisone 20 mg tablet RxNorm: 844037 3 Tablet(s) PO T ID for 3 days then 1 po BID for 3 days then one daily for 3 days 08/26/2016 04/28/2017 Inactiv e Wellbutrin XL 300 mg 24 hr tablet, extended release RxNorm: 732048 TAKE ONE TABLET BY MOUTH EVERY MORNING 07/29/2016 10/26/2016 Inactive gabapentin 600 mg tablet RxNorm: 048978 1 Tablet(s) PO BID 06/26/20 16 12/22/2016 Inactive fluoxetine 40 mg capsule RxNorm: 489364 TAKE ONE CAPSULE BY BENOIT TH EVERY MORNING 06/24/2016 11/20/2016 Inactive Duragesic 100 mcg/hr transdermal patch RxNorm: 056883 2 Application TD Q48H for pain 06/05/2016 07/04/2016 Inactive oxycodone 10 mg tablet RxNorm: 2183434 1-2 Tablet(s) PO QID as n eeded for pain 06/05/2016 03/17/2017 Inactive Belladonna-Phenobarbital 48 mg tablet,extended release RxNor m: 2 Tablet(s) PO TID 06/05/2016 01/19/2017 Inactive Premarin 0.45 mg tablet RxNorm: 354128 TAKE ONE TABLET BY MOUTH DAILY 05/27/2016 09/23/2016 Inactive Topamax 100 mg tablet RxNorm: 808238 TAKE ONE TABLET BY MOUTH EVERY NIGHT AT BEDTIME 05/27/2016 09/27/2016 Inactive Synthroid 112 mcg tablet RxNorm: 529785 TAKE ONE TABLET BY MOUT H DAILY 05/27/2016 09/23/2016 Inactive metformin ER 500 mg tablet,extended release 24 hr RxNorm: 86 0975 TAKE ONE TABLET BY MOUTH DAILY 05/27/2016 09/23/2016 Inactive Symbicort 160 mcg-4.5 mcg/actuation HFA aerosol inhaler RxNo rm: 1754737 INHALE TWO PUFFS TWO TIMES A DAY 05/27/2016 10/23/2016 Inactive Ventolin HFA 90 mcg/actuation aerosol inhaler RxNorm: 574389 INHALE TWO PUFFS BY MOUTH EVERY 4 HOURS NEEDED 05/21/2016 07/07/2016 Inactive omeprazole 40 mg capsule,delayed release RxNorm: 743183 1 Capsu le(s) PO QD 05/06/2016 08/03/2016 Inactive metformin ER 500 mg tablet,extended release 24 hr RxNorm: 86 0975 TAKE ONE TABLET BY MOUTH DAILY 04/23/2016 05/22/2016 Inactive methocarbamol 750 mg tablet RxNorm: 002792 2 Tablet(s) PO TID as needed for muscle spasm 04/23/2016 09/08/2016 Inactive Synthroid 112 mcg tablet RxNorm: 158573 TAKE ONE TABLET BY MOUT H DAILY 04/23/2016 05/22/2016 Inactive Spiriva with HandiHaler 18 mcg and inhalation capsules RxNor m: 830452 INHALE THE ENTIRE CONTENTS OF 1 CAPSULE ONCE A DAY USING HANDIHALER 04/09/201608/2016 Inactive Diflucan 100 mg tablet RxNorm: 765502 1 Tablet(s) PO QD 04/08/2016 Inactive doxycycline hyclate 100 mg capsule RxNorm: 8661034 1 Capsule(s) PO BID 04/08/2016 04/17/2016 Inactive doxycycline hyclate 100 mg capsule RxNorm: 9194135 1 Capsule(s) PO BID 04/08/2016 04/07/2016 Inactive Diflucan 100 mg tablet RxNorm: 552309 1 Tablet(s) PO QD 04/08/2016 Inactive ondansetron HCl 4 mg tablet RxNorm: 620860 1 Tablet(s) PO Q4H as needed for nausea and vomiting 04/08/2016 09/22/2017 Inactive gabapentin 600 mg tablet RxNorm: 528897 TAKE ONE TABLET BY MOUT H TWICE A DAY 03/24/2016 06/25/2016 Inactive Synthroid 112 mcg tablet RxNorm: 431066 TAKE ONE TABLET BY MOUT H DAILY 02/25/2016 04/22/2016 Inactive Levaquin 500 mg tablet RxNorm: 869290 1 Tablet(s) PO QD 01/23/2016 Inactive prednisone 20 mg tablet RxNorm: 984290 1 Tablet(s) PO T ID for 3 days then 1 po BID for 3 days then one daily for 3 days 01/23/2016 08/25/2016 Inactiv e Uplike Ultra Test strips RxNorm: TEST BLOOD SUGAR ONCE DAILY 250.00 01/09/2016 11/04/2017 Inactive methocarbamol 750 mg tablet RxNorm: 203067 2 Tablet(s) PO TID as needed for muscle spasm 01/09/2016 04/23/2016 Inactive lactulose 10 gram/15 mL oral solution RxNorm: 458809 [address](s) PO QD 01/09/2016 09/22/2017 Inactive TAKE 1 TABLESPOON BY MOUTH ONCE DAILY metformin ER 500 mg tablet,extended release 24 hr RxNorm: 86 0975 1 Tablet(s) PO QD 12/26/2015 04/22/2016 Inactive fluoxetine 20 mg capsule RxNorm: 138233 1 Capsule(s) PO QD 12/23/19 16 06/19/2016 Inactive Premarin 0.45 mg tablet RxNorm: 172565 TAKE ONE TABLET BY MOUTH DAILY 12/23/2015 05/20/2016 Inactive fluoxetine 40 mg capsule RxNorm: 420517 1 Capsule(s) PO QD 12/23/19 16 06/19/2016 Inactive TAKE ONE CAPSULE BY MOUTH EV JANKI MORNING azithromycin 500 mg tablet RxNorm: 039760 1 Tablet(s) PO QD 016 12/19/2015 Inactive Zofran 4 mg tablet RxNorm: 969917 1 Tablet(s) PO Q4H prn nausea /vomiting 12/13/2015 03/30/2018 Inactive azithromycin 500 mg tablet RxNorm: 092321 1 Tablet(s) PO QD 016 12/12/2015 Inactive Duragesic 100 mcg/hr transdermal patch RxNorm: 932010 2 Application TD Q48H for pain 12/09/2015 01/07/2016 Inactive oxycodone 10 mg tablet RxNorm: 7849624 1-2 Tablet(s) PO QID as n eeded for pain 12/09/2015 06/04/2016 Inactive Bactroban 2 % topical cream RxNorm: 924522 Application TOP BID 11/2208/25/2016 Inactive doxycycline hyclate 100 mg capsule RxNorm: 4166197 1 Capsule(s) PO BID 12/03/2015 12/12/2015 Inactive Topamax 100 mg tablet RxNorm: 934784 TAKE ONE TABLET BY MOUTH EVERY NIGHT AT BEDTIME 11/25/2015 05/22/2016 Inactive Symbicort 160 mcg-4.5 mcg/actuation HFA aerosol inhaler RxNo rm: 5285502 INHALE TWO PUFFS TWO TIMES A DAY 11/25/2015 05/22/2016 Inactive Synthroid 112 mcg tablet RxNorm: 180432 Tablet(s) TAKE ONE TABLET BY MOUTH DAILY 11/25/2015 02/22/2016 Inactive omeprazole 40 mg capsule,delayed release RxNorm: 545327 1 Capsu le(s) PO QD 11/12/2015 05/05/2016 Inactive oxycodone 10 mg tablet RxNorm: 7304679 1-2 Tablet(s) PO QID as n eeded for pain 11/05/2015 12/08/2015 Inactive Duragesic 100 mcg/hr transdermal patch RxNorm: 000684 2 Application TD Q48H for pain 11/05/2015 12/04/2015 Inactive omeprazole 40 mg capsule,delayed release RxNorm: 877420 1 Capsu le(s) PO QD 10/07/2015 11/11/2015 Inactive Januvia 100 mg tablet RxNorm: 114202 TAKE ONE TABLET BY MOUTH DAILY 09/11/2015 12/25/2015 Inactive Zithromax 500 mg tablet RxNorm: 687225 1 Tablet(s) PO QD 09/10/2015 1 Inactive prednisone 20 mg tablet RxNorm: 002903 1 Tablet(s) PO T ID for 3 days then 1 po BID for 3 days then one daily for 3 days 09/10/2015 08/25/2016 Inactiv e Wellbutrin XL 300 mg 24 hr tablet, extended release RxNorm: 698343 1 Tablet(s) PO QAM 09/10/2015 12/02/2015 Inactive Topamax 100 mg tablet RxNorm: 450068 TAKE ONE TABLET BY MOUTH EVERY NIGHT AT BEDTIME 09/02/2015 11/24/2015 Inactive Synthroid 112 mcg tablet RxNorm: 453380 TAKE ONE TABLET BY MOUT H DAILY 09/02/2015 11/25/2015 Inactive methocarbamol 750 mg tablet RxNorm: 054527 2 Tablet(s) PO TID as needed for muscle spasm 08/15/2015 01/09/2016 Inactive Wellbutrin XL 150 mg 24 hr tablet, extended release RxNorm: 781305 TAKE ONE TABLET BY MOUTH EVERY MORNING 08/13/2015 08/13/2015 Inactive gabapentin 600 mg tablet RxNorm: 038923 1 Tablet(s) PO BID 08/13/20 15 02/08/2016 Inactive Wellbutrin XL 300 mg 24 hr tablet, extended release RxNorm: 910915 1 Tablet(s) PO QAM 08/06/2015 09/09/2015 Inactive Wellbutrin XL 150 mg 24 hr tablet, extended release RxNorm: 463709 1 Tablet(s) PO QAM 07/18/2015 08/05/2015 Inactive prednisone 20 mg tablet RxNorm: 653720 1 Tablet(s) PO BID 07/18/2015 07/22/2015 Inactive doxycycline hyclate 100 mg tablet,delayed release RxNorm: 43 4018 1 Tablet(s) PO BID 07/18/2015 07/27/2015 Inactive pravastatin 40 mg tablet RxNorm: 374324 1 Tablet(s) PO QD NEEDS FASTING LAB 07/15/2015 07/14/2015 Inactive pravastatin 40 mg tablet RxNorm: 713835 1 Tablet(s) PO QD NEEDS FASTING LAB 07/15/2015 01/25/2018 Inactive Ventolin HFA 90 mcg/actuation aerosol inhaler RxNorm: 956814 2 Puff(s) INH Q4H 07/08/2015 07/07/2015 Inactive prn Premarin 0.45 mg tablet RxNorm: 826471 1 Tablet(s) PO QD 07/01/2015 0 12/22/2015 Inactive pravastatin 40 mg tablet RxNorm: 341038 1 Tablet(s) PO QD NEEDS FASTING LAB 06/14/2015 07/15/2015 Inactive Ventolin HFA 90 mcg/actuation aerosol inhaler RxNorm: 0005228 2 Puff(s) INH Q4H 06/06/2015 07/08/2015 Inactive prn albuterol sulfate 2.5 mg/3 mL (0.083 %) solution for n ebulization RxNorm: 724037 1 Unit Dose INH QID 05/30/2015 No Stop Date Active Duragesic 100 mcg/hr transdermal patch RxNorm: 762644 2 Application TD Q48H for pain 04/29/2015 05/28/2015 Inactive gabapentin 600 mg tablet RxNorm: 308384 1 Tablet(s) PO BID 04/11/20 15 08/13/2015 Inactive Onglyza 5 mg tablet RxNorm: 355542 1 Tablet(s) PO QD for blood suga r 04/10/2015 04/15/2015 Inactive [Brand Copay Card: RxBIN:[id number] PCN: [id number] ID#:[id number]] methocarbamol 750 mg tablet RxNorm: 284323 2 Tablet(s) PO TID as needed for muscle spasm 03/28/2015 08/15/2015 Inactive pravastatin 40 mg tablet RxNorm: 341427 1 Tablet(s) PO QD 03/19/2015 03/18/2015 Inactive pravastatin 40 mg tablet RxNorm: 199829 1 Tablet(s) PO QD 03/19/2015 06/14/2015 Inactive lactulose 10 gram/15 mL oral solution RxNorm: 675581 [address]s) PO QD 03/07/2015 01/09/2016 Inactive TAKE 1 TABLESPOON BY MOUTH ONCE DAILY oxycodone 20 mg tablet RxNorm: 0868738 1 Tablet(s) PO QID as nee ded for pain 03/05/2015 07/08/2015 Inactive Topamax 100 mg tablet RxNorm: 151972 1 Tablet(s) PO QHS TAKE ONE TABLET BY MOUTH AT BEDTIME 02/25/2015 02/12/2019 Inactive metformin ER 500 mg tablet,extended release 24 hr RxNorm: 86 0975 1 Tablet(s) PO QD 02/11/2015 03/04/2015 Inactive take one tablet by mouth every day Daliresp 500 mcg tablet RxNorm: 9517605 1 Tablet(s) PO QD 02/11/2015 08/09/2015 Inactive Endocet 10 mg-325 mg tablet RxNorm: 4209416 1 Tablet(s) PO Q4H as needed for pain 01/23/2015 01/23/2015 Inactive gabapentin 600 mg tablet RxNorm: 973576 1 Tablet(s) PO BID 01/23/20 15 04/11/2015 Inactive methocarbamol 750 mg tablet RxNorm: 674194 2 Tablet(s) PO TID as needed for muscle spasm 01/15/2015 02/13/2015 Inactive fluoxetine 40 mg capsule RxNorm: 200650 1 Capsule(s) PO QD 01/14/20 15 12/23/2015 Inactive TAKE ONE CAPSULE BY MOUTH EV JANKI MORNING fluoxetine 20 mg capsule RxNorm: 387551 1 Capsule(s) PO QD 01/14/20 15 12/23/2015 Inactive Premarin 0.45 mg tablet RxNorm: 700614 1 Tablet(s) PO QD 01/02/2015 0 07/01/2015 Inactive Endocet 10 mg-325 mg tablet RxNorm: 8861213 1-2 Tablet(s) PO Q4H 02/12/2019 Inactive PRN PAIN Duragesic 100 mcg/hr transdermal patch RxNorm: 873347 2 Application TD Q48H for pain 12/25/2014 01/23/2015 Inactive Topamax 100 mg tablet RxNorm: 710850 1 Tablet(s) PO QHS TAKE ONE TABLET BY MOUTH AT BEDTIME 12/25/2014 02/24/2015 Inactive Tudorza Pressair 400 mcg/actuation breath activated RxNorm: 4551450 1 BID INHALE ONE PUFF INTO LUNGS TWO TIMES A DAY 12/17/2014 05/15/2015 Inactive Endocet 10 mg-325 mg tablet RxNorm: 7979707 1-2 Tablet(s) PO Q4H 12/19/2014 Inactive PRN PAIN Duragesic 100 mcg/hr transdermal patch RxNorm: 097337 2 Application TD Q48H for pain 11/20/2014 12/24/2014 Inactive Mark OneTouch Ultra Test strips RxNorm: TEST BLOOD SUGAR ONCE DAILY 250.00 11/16/2014 01/08/2016 Inactive omeprazole 40 mg capsule,delayed release RxNorm: 112544 1 Capsu le(s) PO QD 11/13/2014 11/12/2015 Inactive metformin ER 500 mg tablet,extended release 24 hr RxNorm: 86 0975 1 Tablet(s) PO QD 11/12/2014 02/11/2015 Inactive take one tablet by mouth every day Symbicort 160 mcg-4.5 mcg/actuation HFA aerosol inhaler RxNo rm: 7557550 2 Puff(s) INH BID 11/12/2014 03/11/2015 Inactive INHALE 2 PUFFS O RALLY TWO TIMES A DAY gabapentin 800 mg tablet RxNorm: 189026 1 Tablet(s) PO QD TAKE ONE TABLET BY MOUTH ONCE A DAY 10/22/2014 01/01/2015 Inactive Endocet 10 mg-325 mg tablet RxNorm: 0520655 1-2 Tablet(s) PO Q4H 11/15/2014 Inactive PRN PAIN Duragesic 100 mcg/hr transdermal patch RxNorm: 032440 2 Application TD Q48H for pain 10/17/2014 11/19/2014 Inactive gabapentin 800 mg tablet RxNorm: 867060 1 Tablet(s) PO QD TAKE ONE TABLET BY MOUTH ONCE A DAY 10/04/2014 10/21/2014 Inactive Premarin 0.9 mg tablet RxNorm: 051146 1 Tablet(s) PO QD TAKE ONE TABLET BY MOUTH ONCE A DAY 10/04/2014 01/01/2015 Inactive Spiriva with HandiHaler 18 mcg & inhalation capsules RxNorm: 759719 1 Capsule(s) INH QD 10/03/2014 04/30/2015 Inactive Levaquin 500 mg tablet RxNorm: 498933 1 Tablet(s) PO QD 10/03/2014 Inactive prednisone 20 mg tablet RxNorm: 163306 1 Tablet(s) PO QD 10/03/2014 1 12/09/2013 Inactive Duragesic 100 mcg/hr transdermal patch RxNorm: 257878 2 Application TD Q48H for pain 09/18/2014 10/16/2014 Inactive Endocet 10 mg-325 mg tablet RxNorm: 4199798 1-2 Tablet(s) PO Q4H 10/16/2014 Inactive PRN PAIN Synthroid 112 mcg tablet RxNorm: 836521 1 Tablet(s) QD 09/10/2014 Inactive Synthroid 112 mcg tablet RxNorm: 956202 TAKE ONE TABLET BY MOUTH ONE TIME A DAY. NEEDS LABS 09/10/2014 02/06/2015 Inactive omeprazole 40 mg capsule,delayed release RxNorm: 923746 1 Capsu le(s) PO QD 09/03/2014 11/13/2014 Inactive omeprazole 40 mg capsule,delayed release RxNorm: 275892 1 Capsu le(s) PO QD 09/03/2014 09/02/2014 Inactive Spiriva with HandiHaler 18 mcg & inhalation capsules RxNorm: 178118 1 Capsule(s) INH QD 08/27/2014 10/02/2014 Inactive gabapentin 600 mg tablet RxNorm: 981728 1 Tablet(s) PO BID 08/27/20 14 10/22/2014 Inactive Endocet 10 mg-325 mg tablet RxNorm: 1803304 1-2 Tablet(s) PO Q4H 09/17/2014 Inactive PRN PAIN fentanyl 100 mcg/hr transdermal patch RxNorm: 379648 1 Unit Dos e TD QD 08/21/2014 09/19/2014 Inactive Daliresp 500 mcg tablet RxNorm: 4844145 1 Tablet(s) PO QD 08/13/2014 02/11/2015 Inactive Synthroid 112 mcg tablet RxNorm: 889476 TAKE ONE TABLET BY MOUTH ONE TIME A DAY. NEEDS LABS 08/10/2014 09/10/2014 Inactive Endocet 10 mg-325 mg tablet RxNorm: 5391518 1-2 Tablet(s) PO Q4H 08/17/2014 Inactive PRN PAIN Duragesic 100 mcg/hr transdermal patch RxNorm: 354359 2 Application TD Q48H for pain 07/19/2014 09/17/2014 Inactive fluoxetine 40 mg capsule RxNorm: 334373 1 Capsule(s) PO QD 07/17/20 14 01/14/2015 Inactive TAKE ONE CAPSULE BY MOUTH EV JANKI MORNING fluoxetine 20 mg capsule RxNorm: 507640 1 Capsule(s) PO QD 07/17/20 14 01/14/2015 Inactive Spiriva with HandiHaler 18 mcg & inhalation capsules RxNorm: 205248 1 Capsule(s) INH QD 07/17/2014 08/26/2014 Inactive INHALE CONTENTS OF 1 CAPSULE(S) WITH HANDIHALER ONCE DAILY Zofran 4 mg tablet RxNorm: 441437 1 Tablet(s) PO Q4H prn nausea 07/25/2014 Inactive Synthroid 112 mcg tablet RxNorm: 471494 1 Tablet(s) PO QD 07/09/2014 07/09/2014 Inactive methocarbamol 750 mg tablet RxNorm: 877882 2 Tablet(s) PO TID as needed for muscle spasm 07/09/2014 09/06/2014 Inactive Synthroid 112 mcg tablet RxNorm: 024711 1 Tablet(s) PO QD - [facility] labs 07/09/2014 08/07/2014 Inactive Medrol (Aníbal) 4 mg tablets in a dose pack RxNorm: 899176 6 Tablet(s) PO QD --then as directed 07/03/2014 07/08/2014 Inactive Tudorza Pressair 400 mcg/actuation breath activated RxNorm: 7968489 1 Puff(s) INH BID 07/03/2014 12/17/2014 Inactive cefdinir 300 mg capsule RxNorm: 531757 1 Capsule(s) PO BID 07/03/20 14 07/12/2014 Inactive Topamax 100 mg tablet RxNorm: 261519 Tablet(s) TAKE ONE TABLET BY MOUTH AT BEDTIME 07/02/2014 02/25/2015 Inactive Duragesic 100 mcg/hr transdermal patch RxNorm: 757379 2 Application TD Q48H for pain 06/25/2014 07/18/2014 Inactive Endocet 10 mg-325 mg tablet RxNorm: 2429004 1-2 Tablet(s) PO Q4H 07/18/2014 Inactive PRN PAIN metformin ER 500 mg tablet,extended release 24 hr RxNorm: 86 0975 1 Tablet(s) PO QD Needs labs 06/18/2014 07/01/2014 Inactive take one tablet by mouth every day Duragesic 100 mcg/hr transdermal patch RxNorm: 495134 2 Application TD Q48H for pain 05/22/2014 06/24/2014 Inactive Synthroid 112 mcg tablet RxNorm: 521684 1 Tablet(s) PO QD 05/22/2014 07/09/2014 Inactive Endocet 10 mg-325 mg tablet RxNorm: 6185501 1-2 Tablet(s) PO Q4H 06/20/2014 Inactive PRN PAIN Endocet 10 mg-325 mg tablet RxNorm: 5406046 1-2 Tablet(s) PO Q4H 05/21/2014 Inactive PRN PAIN Duragesic 100 mcg/hr transdermal patch RxNorm: 601008 2 Application TD Q48H for pain 04/25/2014 05/21/2014 Inactive Daliresp 500 mcg tablet RxNorm: 0736674 1 Tablet(s) PO QD 04/24/2014 08/13/2014 Inactive Symbicort 160 mcg-4.5 mcg/actuation HFA aerosol inhaler RxNo rm: 6449123 2 Puff(s) INH BID 04/24/2014 08/21/2014 Inactive INHALE 2 PUFFS O RALLY TWO TIMES A DAY metformin ER 500 mg tablet,extended release 24 hr RxNorm: 86 0975 1 Tablet(s) PO QD 04/24/2014 11/12/2014 Inactive TAKE ONE TABLET BY MOUTH EVERY DAY [AttnRPh:Saving Apply/Adjudicate RxGRP:LDMGRP RxBIN:[id number] RxPCN:2012 PCode:01 ID#:[id number]] Symbicort 160 mcg-4.5 mcg/actuation HFA aerosol inhaler RxNo rm: 1134448 2 Puff(s) INH BID 04/24/2014 11/12/2014 Inactive INHALE 2 PUFFS O RALLY TWO TIMES A DAY Premarin 0.9 mg tablet RxNorm: 761023 1 Tablet(s) PO QD 04/24/2014 Inactive TAKE ONE TABLET BY MOUTH EVERY DAY metformin ER 500 mg tablet,extended release 24 hr RxNorm: 86 0975 1 Tablet(s) PO QD Needs labs 04/24/2014 06/18/2014 Inactive TAKE ONE TABLET BY MOUTH EVERY DAY [AttnRPh:Saving Apply/Adjudicate RxGRP:LDMGRP RxBIN:[id number] RxPCN:2012 PCode:01 ID#:[id number]] gabapentin 800 mg tablet RxNorm: 291337 1 Tablet(s) PO QD 04/24/2014 10/04/2014 Inactive TAKE ONE TABLET BY MOUTH EVERY DAY Topamax 100 mg tablet RxNorm: 743056 1 Tablet(s) PO QHS 04/17/2014 Inactive Topamax 100 mg tablet RxNorm: 918502 TAKE ONE TABLET BY MOUTH A T BEDTIME 04/17/2014 07/01/2014 Inactive Tudorza Pressair 400 mcg/actuation breath activated RxNorm: 2373541 1 Puff(s) INH BID 04/11/2014 07/02/2014 Inactive Duragesic 100 mcg/hr transdermal patch RxNorm: 070882 2 Application TD Q48H for pain 03/27/2014 04/24/2014 Inactive Endocet 10 mg-325 mg tablet RxNorm: 0730859 1-2 Tablet(s) PO Q4H 04/24/2014 Inactive PRN PAIN Robaxin 750 mg tablet RxNorm: 984904 2 Tablet(s) PO TID as need ed for spasm 02/23/2014 03/28/2015 Inactive Duragesic 100 mcg/hr transdermal patch RxNorm: 272555 2 Application TD Q48H for pain 02/23/2014 No Stop Date Active Endocet 10 mg-325 mg tablet RxNorm: 1625807 1-2 Tablet(s) PO Q4H 03/23/2014 Inactive PRN PAIN Synthroid 112 mcg tablet RxNorm: 637225 1 Tablet(s) PO QD TAKE ONE TABLET BY MOUTH EVERY DAY 02/15/2014 05/22/2014 Inactive Zithromax 500 mg tablet RxNorm: 396333 1 Tablet(s) PO QD 01/30/2014 0 02/05/2014 Inactive Diflucan 100 mg tablet RxNorm: 733429 1 Tablet(s) PO QD 01/30/2014 Inactive prednisone 20 mg tablet RxNorm: 873200 1 Tablet(s) PO BID 01/30/2014 02/05/2014 Inactive fluoxetine 40 mg capsule RxNorm: 322649 1 Capsule(s) PO QD 01/23/20 14 07/16/2014 Inactive TAKE ONE CAPSULE BY MOUTH EV JANKI MORNING fluoxetine 40 mg capsule RxNorm: 226986 1 Capsule(s) PO QD 01/23/20 14 07/17/2014 Inactive TAKE ONE CAPSULE BY MOUTH EV JANKI MORNING cefdinir 300 mg capsule RxNorm: 695918 1 Capsule(s) PO BID 01/16/20 14 01/29/2014 Inactive Zithromax 500 mg tablet RxNorm: 114618 1 Tablet(s) PO QD 01/16/2014 0 01/22/2014 Inactive prednisone 20 mg tablet RxNorm: 352989 1 Tablet(s) PO BID 01/16/2014 01/22/2014 Inactive Spiriva with HandiHaler 18 mcg and inhalation capsules RxNor m: 672667 1 Capsule(s) INH QD 12/18/2013 07/17/2014 Inactive INHALE CONTENT S OF 1 CAPSULE(S) WITH HANDIHALER ONCE DAILY fluoxetine 20 mg capsule RxNorm: 075284 1 Capsule(s) PO QD 12/18/19 14 06/15/2014 Inactive Spiriva with HandiHaler 18 mcg & inhalation capsules RxNorm: 151663 1 Capsule(s) INH QD 12/18/2013 06/15/2014 Inactive INHALE CONTENTS OF 1 CAPSULE(S) WITH HANDIHALER ONCE DAILY fluoxetine 20 mg capsule RxNorm: 191248 1 Capsule(s) PO QD 12/18/19 14 07/17/2014 Inactive cefdinir 300 mg capsule RxNorm: 695995 2 Capsule(s) PO QD 12/12/2013 12/21/2013 Inactive Duragesic 100 mcg/hr transdermal patch RxNorm: 930996 2 Application TD Q48H for pain 12/08/2013 12/07/2013 Inactive Topamax 100 mg tablet RxNorm: 400349 1 Tablet(s) PO QHS 12/04/2013 Inactive Endocet 10 mg-325 mg tablet RxNorm: 8461226 1-2 Tablet(s) PO Q4H 12/26/2013 Inactive PRN PAIN Robaxin 750 mg tablet RxNorm: 930497 2 Tablet(s) PO TID as need ed for spasm 11/07/2013 01/05/2014 Inactive gabapentin 800 mg tablet RxNorm: 410365 1 Tablet(s) PO QD 10/16/2013 04/24/2014 Inactive TAKE ONE TABLET BY MOUTH EVERY DAY Symbicort 160 mcg-4.5 mcg/actuation HFA aerosol inhaler RxNo rm: 2269143 2 Puff(s) INH BID 10/16/2013 04/24/2014 Inactive INHALE 2 PUFFS O RALLY TWO TIMES A DAY Premarin 0.9 mg tablet RxNorm: 403158 1 Tablet(s) PO QD 10/16/2013 Inactive TAKE ONE TABLET BY MOUTH EVERY DAY metformin ER 500 mg tablet,extended release 24 hr RxNorm: 86 0975 1 Tablet(s) PO QD 10/16/2013 04/24/2014 Inactive TAKE ONE TABLET BY MOUTH EVERY DAY Daliresp 500 mcg tablet RxNorm: 0198903 1 Tablet(s) PO QD 10/16/2013 04/24/2014 Inactive Robaxin 750 mg tablet RxNorm: 797032 2 Tablet(s) PO TID as need ed for spasm 10/10/2013 11/06/2013 Inactive Duragesic 100 mcg/hr transdermal patch RxNorm: 543160 2 Application TD Q48H for pain 10/09/2013 No Stop Date Active Soma 350 mg tablet RxNorm: 311001 1 Tablet(s) PO TID 09/27/201310/09 Inactive TAKE ONE TABLET BY MOUTH THREE TIMES A D AY lactulose 10 gram/15 mL oral solution RxNorm: 321563 [address](s) PO QD 09/13/2013 03/07/2015 Inactive TAKE 1 TABLESPOON BY MOUTH ONCE DAILY Duragesic 100 mcg/hr transdermal patch RxNorm: 472116 2 Application TD Q48H for pain 09/06/2013 No Stop Date Active Endocet 10 mg-325 mg tablet RxNorm: 5107631 1-2 Tablet(s) PO Q4H 09/27/2013 Inactive PRN PAIN lancets 28 gauge RxNorm: Miscellaneous As needed for blo od glucose sticks 08/24/2013 No Stop Date Active 16.2 mg-0.1037 mg-0.0194 mg tablet RxNorm: 7164501 Tablet(s) PO PRN for gas and cramping 08/24/2013 01/19/2017 Inactive TAKE TWO TABLET S BY MOUTH THREE TIMES A DAY NEEDED FOR GAS AND CRAMPING Topamax 100 mg tablet RxNorm: 103182 1 Tablet(s) PO QHS 07/31/2013 Inactive Diflucan 100 mg tablet RxNorm: 396093 1 Tablet(s) PO QD 07/27/2013 Inactive cefdinir 300 mg capsule RxNorm: 449925 1 Capsule(s) PO BID 07/26/20 13 08/08/2013 Inactive Daliresp 500 mcg tablet RxNorm: 5861966 1 Tablet(s) PO QD 07/25/2013 10/15/2013 Inactive fluoxetine 40 mg capsule RxNorm: 056727 1 Capsule(s) PO QD 07/25/20 13 01/22/2014 Inactive TAKE ONE CAPSULE BY MOUTH EV JANKI MORNING Senokot-S 8.6 mg-50 mg tablet RxNorm: 2633135 1 Tablet(s) PO BID 10/25/2013 Inactive doxycycline hyclate 100 mg capsule RxNorm: 4141822 1 Capsule(s) PO BID 06/28/2013 07/07/2013 Inactive prednisone 20 mg tablet RxNorm: 756044 1 Tablet(s) PO BID 06/28/2013 07/04/2013 Inactive Zofran 4 mg tablet RxNorm: 392043 1 Tablet(s) PO Q4H prn nausea 03/201307/05/2013 Inactive Spiriva with HandiHaler 18 mcg & inhalation capsules RxNorm: 573826 1 Capsule(s) INH QD 06/26/2013 12/18/2013 Inactive INHALE CONTENTS OF 1 CAPSULE(S) WITH HANDIHALER ONCE DAILY Synthroid 112 mcg tablet RxNorm: 773189 1 Tablet(s) PO QD TAKE ONE TABLET BY MOUTH EVERY DAY 06/19/2013 02/15/2014 Inactive fluoxetine 20 mg capsule RxNorm: 223645 1 Capsule(s) PO QD 06/19/20 13 12/18/2013 Inactive Ventolin HFA 90 mcg/actuation Aerosol Inhaler RxNorm: 5764690 2 Puff(s) INH Q4H 06/05/2013 No Stop Date Active prn Soma 350 mg tablet RxNorm: 267285 1 Tablet(s) PO TID 06/05/201307/04 Inactive TAKE ONE TABLET BY MOUTH THREE TIMES A D AY prednisone 20 mg tablet RxNorm: 678671 1 Tablet(s) PO QD 05/31/2013 0 06/06/2013 Inactive Topamax 100 mg tablet RxNorm: 106890 1 Tablet(s) PO QHS 05/22/2013 Inactive Levaquin 500 mg tablet RxNorm: 080922 1 Tablet(s) PO QD 05/03/2013 Inactive Diflucan 100 mg tablet RxNorm: 956943 1 Tablet(s) PO QD 05/03/2013 Inactive Daliresp 500 mcg tablet RxNorm: 0723049 1 Tablet(s) PO QD 05/01/2013 07/24/2013 Inactive Daliresp 500 mcg tablet RxNorm: 0540748 1 Tablet(s) PO QD 05/01/2013 04/30/2013 Inactive gabapentin 800 mg tablet RxNorm: 345325 1 Tablet(s) PO QD 04/10/2013 10/06/2013 Inactive TAKE ONE TABLET BY MOUTH EVERY DAY metformin ER 500 mg tablet,extended release 24 hr RxNorm: 86 0977 1 Tablet(s) PO QD 04/10/2013 10/06/2013 Inactive TAKE ONE TABLET BY MOUTH EVERY DAY Premarin 0.9 mg tablet RxNorm: 854689 1 Tablet(s) PO QD 04/10/2013 Inactive TAKE ONE TABLET BY MOUTH EVERY DAY Symbicort 160 mcg-4.5 mcg/actuation HFA aerosol inhaler RxNo rm: 5603091 2 Puff(s) INH BID 04/10/2013 10/06/2013 Inactive INHALE 2 PUFFS O RALLY TWO TIMES A DAY Synthroid 112 mcg tablet RxNorm: 257227 1 Tablet(s) PO QD TAKE ONE TABLET BY MOUTH EVERY DAY 04/10/2013 06/18/2013 Inactive Ventolin HFA 90 mcg/actuation Aerosol Inhaler RxNorm: 124500 2 Puff(s) INH Q4H 04/10/2013 No Stop Date Active prn fentanyl 100 mcg/hr transdermal patch RxNorm: 677166 1 Unit Dos e TD QD 04/03/2013 05/02/2013 Inactive Endocet 10 mg-325 mg tablet RxNorm: 3418223 1-2 Tablet(s) PO Q4H 05/02/2013 Inactive PRN PAIN Topamax 100 mg tablet RxNorm: 366231 1 Tablet(s) PO QHS 03/13/2013 Inactive Reglan 10 mg tablet RxNorm: 460809 1 Tablet(s) PO QID b efore meals and at bedtime 03/13/2013 04/09/2015 Inactive fluoxetine 20 mg capsule RxNorm: 099416 1 Capsule(s) PO QD 02/28/20 13 05/27/2013 Inactive Ventolin HFA 90 mcg/actuation Aerosol Inhaler RxNorm: 712169 2 Puff(s) INH Q4H 02/13/2013 No Stop Date Active prn fluoxetine 40 mg capsule RxNorm: 677056 1 Capsule(s) PO QD 01/31/20 13 07/24/2013 Inactive TAKE ONE CAPSULE BY MOUTH EV JANKI MORNING Soma 350 mg tablet RxNorm: 891172 1 Tablet(s) PO TID 01/20/201302/18 Inactive TAKE ONE TABLET BY MOUTH THREE TIMES A D AY Endocet 10 mg-325 mg tablet RxNorm: 8251890 1-2 Tablet(s) PO Q4H 02/06/2013 Inactive PRN PAIN MS Contin 200 mg tablet,extended release RxNorm: 328415 1 Table t(s) PO BID 01/18/2013 02/06/2013 Inactive Ventolin HFA 90 mcg/actuation Aerosol Inhaler RxNorm: 751501 2 Puff(s) INH Q4H 01/04/2013 No Stop Date Active prn Spiriva with HandiHaler 18 mcg & inhalation capsules RxNorm: 558304 1 Capsule(s) INH QD 12/29/2012 06/25/2013 Inactive INHALE CONTENTS OF 1 CAPSULE(S) WITH HANDIHALER ONCE DAILY Spiriva with HandiHaler 18 mcg & inhalation capsules RxNorm: 628720 1 Capsule(s) INH QD 12/26/2012 12/28/2012 Inactive INHALE CONTENTS OF 1 CAPSULE(S) WITH HANDIHALER ONCE DAILY Synthroid 112 mcg tablet RxNorm: 305004 Tablet(s) PO TA KE ONE TABLET BY MOUTH EVERY DAY 12/26/2012 04/09/2013 Inactive Endocet 10 mg-325 mg tablet RxNorm: 5194192 1-2 Tablet(s) PO Q4H 01/17/2013 Inactive PRN PAIN MS Contin 200 mg tablet,extended release RxNorm: 702260 1 Table t(s) PO BID 12/21/2012 01/17/2013 Inactive fluoxetine 20 mg capsule RxNorm: 416423 1 Capsule(s) PO QD 12/06/19 13 02/26/2013 Inactive Synthroid 112 mcg tablet RxNorm: 348197 1 Tablet(s) PO QD 12/06/2012 02/12/2019 Inactive TAKE ONE TABLET BY MOUTH EVERY DAY Ventolin HFA 90 mcg/actuation Aerosol Inhaler RxNorm: 262581 2 Puff(s) INH Q4H 12/06/2012 No Stop Date Active prn Reglan 10 mg tablet RxNorm: 641197 1 Tablet(s) PO QID b efore meals and at bedtime 11/24/2012 03/12/2013 Inactive Topamax 100 mg tablet RxNorm: 572082 1 Tablet(s) PO QHS 11/16/2012 Inactive Ventolin HFA 90 mcg/actuation Aerosol Inhaler RxNorm: 992011 2 Puff(s) INH Q4H 11/09/2012 No Stop Date Active prn gabapentin 800 mg tablet RxNorm: 700367 1 Tablet(s) PO QD 10/27/2012 04/09/2013 Inactive TAKE ONE TABLET BY MOUTH EVERY DAY metformin ER 500 mg tablet,extended release 24 hr RxNorm: 86 0977 1 Tablet(s) PO QD 10/27/2012 04/09/2013 Inactive TAKE ONE TABLET BY MOUTH EVERY DAY Symbicort 160 mcg-4.5 mcg/actuation HFA Aerosol Inhaler RxNo rm: 8329004 2 Puff(s) INH BID 10/27/2012 04/09/2013 Inactive INHALE 2 PUFFS O RALLY TWO TIMES A DAY Premarin 0.9 mg tablet RxNorm: 622004 1 Tablet(s) PO QD 10/27/2012 Inactive TAKE ONE TABLET BY MOUTH EVERY DAY Endocet 10 mg-325 mg tablet RxNorm: 2841700 1-2 Tablet(s) PO Q4H 11/24/2012 Inactive PRN PAIN MS Contin 200 mg tablet,extended release RxNorm: 055423 1 Table t(s) PO BID 10/26/2012 11/24/2012 Inactive Soma 350 mg tablet RxNorm: 762789 1 Tablet(s) PO TID 10/04/201211/02 Inactive TAKE ONE TABLET BY MOUTH THREE TIMES A D AY Ventolin HFA 90 mcg/actuation Aerosol Inhaler RxNorm: 701311 2 Puff(s) INH Q4H 10/03/2012 No Stop Date Active prn Daliresp 500 mcg tablet RxNorm: 7134799 1 Tablet(s) PO QD 09/28/2012 09/27/2012 Inactive Daliresp 500 mcg tablet RxNorm: 2003090 1 Tablet(s) PO QD 09/28/2012 04/25/2013 Inactive fluoxetine 20 mg capsule RxNorm: 257562 1 Capsule(s) PO QD 09/05/20 12 12/06/2012 Inactive Topamax 50 mg tablet RxNorm: 049421 Tablet(s) PO for 1w k then 1 po q HS for 1wk then 2 po q HS 08/29/2012 09/27/2012 Inactive TAKE 1/2 TABLET BY MOUTH AT BEDTIME FOR 1 WEEK, THEN 1 TABLET AT BEDTIME FOR 1 WEEK, THEN 2 TABLETS AT BEDTIME Topamax 100 mg tablet RxNorm: 431165 1 Tablet(s) PO QHS 08/29/2012 Inactive Ventolin HFA 90 mcg/actuation Aerosol Inhaler RxNorm: 735691 2 Puff(s) INH Q4H 08/19/2012 No Stop Date Active prn Ventolin HFA 90 mcg/actuation Aerosol Inhaler RxNorm: 673036 2 Puff(s) INH Q4H 08/15/2012 No Stop Date Active prn Synthroid 112 mcg tablet RxNorm: 365114 1 Tablet(s) PO QD 08/10/2012 11/07/2012 Inactive TAKE ONE TABLET BY MOUTH EVERY DAY Synthroid 112 mcg tablet RxNorm: 866436 1 Tablet(s) PO QD 08/01/2012 08/09/2012 Inactive TAKE ONE TABLET BY MOUTH EVERY DAY Reglan 10 mg tablet RxNorm: 377846 1 Tablet(s) PO QID b efore meals and at bedtime 08/01/2012 11/23/2012 Inactive fluoxetine 40 mg capsule RxNorm: 133663 1 Capsule(s) PO QD 08/01/2001/27/2013 Inactive TAKE ONE CAPSULE BY MOUTH EV JANKI MORNING Ventolin HFA 90 mcg/actuation Aerosol Inhaler RxNorm: 036094 2 Puff(s) INH Q4H 08/01/2012 No Stop Date Active prn Soma 350 mg tablet RxNorm: 229419 1 Tablet(s) PO TID 07/20/201208/18 Inactive TAKE ONE TABLET BY MOUTH THREE TIMES A D AY Spiriva with HandiHaler 18 mcg & inhalation capsules RxNorm: 274738 1 Capsule(s) INH 07/01/2012 12/25/2012 Inactive INHALE CONTENTS OF 1 CAPSULE(S) WITH HANDIHALER ONCE DAILY Zithromax 250 mg Tab RxNorm: 142204 2 Tablet(s) PO QD 06/28/201206/22 Inactive MS Contin 200 mg tablet,extended release RxNorm: 164032 1 Table t(s) PO BID 06/28/2012 07/27/2012 Inactive Endocet 10 mg-325 mg tablet RxNorm: 3453335 1-2 Tablet(s) PO Q4H 07/27/2012 Inactive PRN PAIN Topamax 100 mg tablet RxNorm: 426327 1 Tablet(s) PO QHS 06/28/2012 Inactive 16.2 mg-0.1037 mg-0.0194 mg tablet RxNorm: 5009343 Tablet(s) PO PRN for gas and cramping 06/08/2012 08/23/2013 Inactive TAKE TWO TABLET S BY MOUTH THREE TIMES A DAY NEEDED FOR GAS AND CRAMPING Ventolin HFA 90 mcg/actuation Aerosol Inhaler RxNorm: 781454 2 Puff(s) INH Q4H 05/23/2012 No Stop Date Active prn Ventolin HFA 90 mcg/actuation Aerosol Inhaler RxNorm: 740899 2 Puff(s) INH Q4H 05/11/2012 No Stop Date Active prn Synthroid 112 mcg tablet RxNorm: 401008 1 Tablet(s) PO QD 05/09/2012 07/31/2012 Inactive TAKE ONE TABLET BY MOUTH EVERY DAY gabapentin 800 mg tablet RxNorm: 204196 1 Tablet(s) PO QD 05/09/2012 10/26/2012 Inactive TAKE ONE TABLET BY MOUTH EVERY DAY fluoxetine 40 mg capsule RxNorm: 969657 1 Capsule(s) PO QD 05/09/2007/31/2012 Inactive TAKE ONE CAPSULE BY MOUTH EV JANKI MORNING metformin ER 500 mg tablet,extended release 24 hr RxNorm: 86 0977 1 Tablet(s) PO QD 05/09/2012 10/26/2012 Inactive TAKE ONE TABLET BY MOUTH EVERY DAY Premarin 0.9 mg tablet RxNorm: 498214 1 Tablet(s) PO QD 05/09/2012 Inactive TAKE ONE TABLET BY MOUTH EVERY DAY Symbicort 160 mcg-4.5 mcg/actuation HFA Aerosol Inhaler RxNo rm: 4767973 2 Puff(s) INH BID 05/09/2012 10/26/2012 Inactive INHALE 2 PUFFS O RALLY TWO TIMES A DAY Endocet 10 mg-325 mg Tab RxNorm: 8219028 1-2 Tablet(s) PO Q4H 04/2705/26/2012 Inactive PRN PAIN MS Contin 200 mg Tab RxNorm: 112308 1 Tablet(s) PO BID 04/26/201202/2012 Inactive Ventolin HFA 90 mcg/actuation Aerosol Inhaler RxNorm: 432953 2 Puff(s) INH Q4H 04/25/2012 05/10/2012 Inactive prn Soma 350 mg tablet RxNorm: 453397 2 Tablet(s) PO TID 04/19/201207/19 Inactive TAKE ONE TABLET BY MOUTH THREE TIMES A D AY Ventolin HFA 90 mcg/actuation Aerosol Inhaler RxNorm: 262701 2 Puff(s) INH Q4H 04/12/2012 04/24/2012 Inactive prn Reglan 10 mg tablet RxNorm: 579568 1 Tablet(s) PO QID b efore meals and at bedtime 04/11/2012 07/31/2012 Inactive MS Contin 200 mg Tab RxNorm: 667281 1 Tablet(s) PO BID 03/30/201202/2012 Inactive Endocet 10 mg-325 mg Tab RxNorm: 1991448 1-2 Tablet(s) PO Q4H 03/3004/26/2012 Inactive PRN PAIN MS Contin 200 mg Tab RxNorm: 667086 1 Tablet(s) PO BID 03/02/201206/2012 Inactive Endocet 10 mg-325 mg Tab RxNorm: 6902706 1-2 Tablet(s) PO Q4H 03/0203/29/2012 Inactive PRN PAIN Daliresp 500 mcg tablet RxNorm: 6719304 1 Tablet(s) PO QD 03/01/2012 09/28/2012 Inactive MS Contin 200 mg Tab RxNorm: 434210 1 Tablet(s) PO BID 02/02/201208/2012 Inactive Endocet 10 mg-325 mg Tab RxNorm: 8660834 1-2 Tablet(s) PO Q4H 02/0103/01/2012 Inactive PRN PAIN fluoxetine 40 mg capsule RxNorm: 079391 1 Capsule(s) PO QD 02/02/2008/01/2012 Inactive TAKE ONE CAPSULE BY MOUTH EV JANKI MORNING Synthroid 112 mcg Tab RxNorm: 692730 1 Tablet(s) PO QD 01/18/2012 Inactive TAKE ONE TABLET BY MOUTH EVERY DAY lactulose 10 gram/15 mL oral solution RxNorm: 790576 [address]s) PO QD 01/18/2012 No Stop Date Active TAKE 1 TABLESPOON BY MOUTH ONCE DAILY Ventolin HFA 90 mcg/actuation Aerosol Inhaler RxNorm: 009746 2 Puff(s) INH Q4H 01/18/2012 04/11/2012 Inactive prn MS Contin 200 mg Tab RxNorm: 254071 1 Tablet(s) PO BID 01/05/201210/2012 Inactive Endocet 10 mg-325 mg Tab RxNorm: 7534017 1-2 Tablet(s) PO Q4H 01/0502/01/2012 Inactive PRN PAIN ProAir HFA 90 mcg/Actuation Aerosol Inhaler RxNorm: 238214 2 Pu ff(s) INH Q4H 12/21/2011 No Stop Date Active prn for wheezing or shortness of breath Spiriva with HandiHaler 18 mcg & inhalation Caps RxNorm: 580 261 1 Capsule(s) INH 12/21/2011 06/30/2012 Inactive INHALE CONTENTS OF 1 CAPSULE(S) WITH HANDIHALER ONCE DAILY Reglan 10 mg Tab RxNorm: 708549 1 Tablet(s) PO QID before meals and at bedtime 12/21/2011 04/10/2012 Inactive Synthroid 112 mcg Tab RxNorm: 320049 1 Tablet(s) PO QD 12/21/2011 Inactive TAKE ONE TABLET BY MOUTH EVERY DAY Endocet 10 mg-325 mg Tab RxNorm: 1896177 1-2 Tablet(s) PO Q4H 11/2512/24/2011 Inactive PRN PAIN MS Contin 200 mg Tab RxNorm: 749107 1 Tablet(s) PO BID 11/25/201112/2011 Inactive lactulose 10 gram/15 mL Oral Soln RxNorm: 632346 Milliliter(s) PO 1 No Stop Date Active TAKE 1 TABLESPOON BY MOUTH O NCE DAILY lactulose 10 gram/15 mL Oral Soln RxNorm: 296192 Milliliter(s) PO 1 12/12/2010 11/20/2011 Inactive TAKE 1 TABLESPOON BY MOUTH O NCE DAILY Premarin 0.9 mg Tab RxNorm: 512035 1 Tablet(s) PO QD 10/12/201105/08 Inactive TAKE ONE TABLET BY MOUTH EVERY DAY fluoxetine 20 mg capsule RxNorm: 262640 1 Capsule(s) PO QD 10/12/2009/05/2012 Inactive TAKE ONE CAPSULE BY MOUTH EV JANKI DAY Synthroid 112 mcg Tab RxNorm: 002396 1 Tablet(s) PO QD 10/12/2011 Inactive TAKE ONE TABLET BY MOUTH EVERY DAY metformin ER 500 mg 24 hr Tab RxNorm: 861834 1 Tablet(s) PO QD 09/2311/10/2011 Inactive TAKE ONE TABLET BY MOUTH GLYNN RY DAY Synthroid 112 mcg Tab RxNorm: 952653 1 Tablet(s) PO QD 10/12/2011 Inactive TAKE ONE TABLET BY MOUTH EVERY DAY metformin ER 500 mg 24 hr Tab RxNorm: 263968 1 Tablet(s) PO QD 09/2310/11/2011 Inactive TAKE ONE TABLET BY MOUTH GLYNN RY DAY Prevacid 30 mg Cap RxNorm: 132652 Capsule(s) PO 10/12/2011 01/25/2012 Inactive TAKE ONE CAPSULE BY MOUTH EVERY DAY Symbicort 160 mcg-4.5 mcg/actuation HFA Aerosol Inhaler RxNo rm: 2525079 2 Puff(s) INH BID 10/12/2011 05/08/2012 Inactive INHALE 2 PUFFS O RALLY TWO TIMES A DAY gabapentin 800 mg Tab RxNorm: 488867 1 Tablet(s) PO QD 10/12/2011 Inactive TAKE ONE TABLET BY MOUTH EVERY DAY MS Contin 200 mg Tab RxNorm: 089596 1 Tablet(s) PO BID 09/23/201111/2010 Inactive Endocet 10 mg-325 mg Tab RxNorm: 9603048 1-2 Tablet(s) PO Q4H 09/2310/22/2011 Inactive PRN PAIN Endocet 10 mg-325 mg Tab RxNorm: 9950545 1-2 Tablet(s) PO Q4H 08/2109/19/2011 Inactive PRN PAIN MS Contin 200 mg Tab RxNorm: 165551 1 Tablet(s) PO BID 08/21/2011 Inactive Diflucan 100 mg Tab RxNorm: 036482 1 Tablet(s) PO QD 08/10/201108/16 Inactive cefdinir 300 mg Cap RxNorm: 184964 2 Capsule(s) PO QD 08/10/201107/24 Inactive Reglan 10 mg Tab RxNorm: 442018 1 Tablet(s) PO AC & HS 07/15/2011 Inactive Endocet 10 mg-325 mg Tab RxNorm: 5025618 1-2 Tablet(s) PO Q4H 07/1508/13/2011 Inactive PRN PAIN One Touch Ultra Test strips RxNorm: Miscellaneous BID 06/11/201101/16/2014 Inactive TEST TWO TIMES A DAY lactulose 10 gram/15 mL Oral Soln RxNorm: 399127 Milliliter(s) PO 0 06/10/2011 10/11/2011 Inactive TAKE 1 TABLESPOON BY MOUTH O NCE DAILY Chantix Continuing Month Aníbal 1 mg Tab RxNorm: 336803 Tablet(s) PO 0 06/10/2011 11/02/2011 Inactive TAKE DIRECTED - PER [employer] GE INSTRUCTIONS fluoxetine 40 mg Cap RxNorm: 129015 Capsule(s) PO 06/10/2011 02/02/20 12 Inactive TAKE ONE CAPSULE BY MOUTH EVERY MORNING Chantix Continuing Month Aníbal 1 mg Tab RxNorm: 186284 Ta blet(s) PO TAKE DIRECTED - PER PACKAGE INSTRUCTIONS 05/13/2011 06/09/2011 Inactive Soma 350 mg Tab RxNorm: 474453 Tablet(s) PO TAKE ON E TABLET BY MOUTH THREE TIMES A DAY 05/13/2011 04/18/2012 Inactive Chantix Continuing Month Aníbal 1 mg Tab RxNorm: 974596 Ta blet(s) PO as directed per package instructions. 04/22/2011 05/12/2011 Inactive Symbicort 160 mcg-4.5 mcg/Actuation HFA Aerosol Inhaler RxNo rm: [id number] HFA Aerosol Inhaler INH INHALE 2 PUFFS ORALLY TWO TIMES A DAY 04/13/2011 Inactive Synthroid 112 mcg Tab RxNorm: 817489 Tablet(s) PO TAKE ONE TABLET BY MOUTH EVERY DAY 04/13/2011 10/12/2011 Inactive Premarin 0.9 mg Tab RxNorm: 506584 Tablet(s) PO TAKE ON E TABLET BY MOUTH EVERY DAY 04/13/2011 10/12/2011 Inactive gabapentin 800 mg Tab RxNorm: 370472 Tablet(s) PO TAKE ONE TABLET BY MOUTH EVERY DAY 04/13/2011 10/12/2011 Inactive Prevacid 30 mg Cap RxNorm: 374945 1 Capsule(s) PO QD 04/13/201110/11 Inactive Spiriva with HandiHaler 18 mcg & inhalation Caps RxNorm: 580 261 Capsule(s) INH INHALE CONTENTS OF 1 CAPSULE(S) WITH HANDIHALER ONCE DAILY 04/13/2011 12/21/2011 Inactive metformin ER 500 mg 24 hr Tab RxNorm: 325874 Tablet(s) PO TAKE ONE TABLET BY MOUTH EVERY DAY 04/13/2011 10/12/2011 Inactive Soma 350 mg Tab RxNorm: 316942 1 Tablet(s) PO QID 03/30/2011 02/13/20 19 Inactive fluoxetine 20 mg Cap RxNorm: 430005 Capsule(s) PO TAKE ONE CAPSULE BY MOUTH EVERY DAY 03/25/2011 10/12/2011 Inactive cefdinir 300 mg Cap RxNorm: 863888 2 Capsule(s) PO QD 03/19/201105/2011 Inactive 16.2 mg-0.1037 mg-0.0194 mg Tab RxNorm: 2350356 2 Tablet(s) PO TID PRN for gas and cramping 03/16/2011 07/13/2011 Inactive Soma 350 mg Tab RxNorm: 321360 2 Tablet(s) PO TID 03/16/2011 03/29/20 11 Inactive Chantix Starting Month Aníbal 0.5 mg (11)-1 mg (3x14) Tab s in a Dose Pack RxNorm: 368402 Tablet(s) PO as directed 03/02/2011 No Stop Date Active diazepam 10 mg Tab RxNorm: 151399 1 Tablet(s) PO BID 02/10/201101/19 Inactive Zofran 4 mg tablet RxNorm: 225722 1 Tablet(s) PO Q4H prn nausea 02/16/2011 Inactive Diflucan 100 mg Tab RxNorm: 502884 1 Tablet(s) PO QD 01/18/201101/24 Inactive Premarin 0.625 mg/g Vaginal Cream RxNorm: 414593 VAG In sert 1gm vaginally at bedtime 3 times weekly 01/18/2011 02/12/2019 Inactive loratadine 10 mg Tab RxNorm: 6977905 1 Tablet(s) PO QD 12/17/201003/2012 Inactive Spiriva with HandiHaler 18 mcg & inhalation Caps RxNorm: 580 261 1 Capsule(s) INH QD 12/17/2010 04/12/2011 Inactive Diflucan 100 mg Tab RxNorm: 626658 1 Tablet(s) PO QD 12/17/201012/23 Inactive diazepam 10 mg Tab RxNorm: 791260 1 Tablet(s) PO BID and PRN 201002/12/2019 Inactive One Touch Ultra Test Strips RxNorm: InVt BID Zainab t blood sugar at least twice daily. 11/11/2010 06/11/2011 Inactive fluoxetine 40 mg Cap RxNorm: 676600 1 Capsule(s) PO QAM 11/11/2010 Inactive diazepam 10 mg Tab RxNorm: 016203 1 Tablet(s) PO BID and PRN 200911/12/2010 Inactive Bactrim DS 800 mg-160 mg Tab RxNorm: 853566 1 Tablet(s) PO BID 09/2210/15/2010 Inactive fluoxetine 20 mg Cap RxNorm: 335973 1 Capsule(s) PO QD 10/02/201008/2011 Inactive Bactrim DS 800 mg-160 mg Tab RxNorm: 889847 1 Tablet(s) PO BID 01/201010/03/2010 Inactive Zofran 4 mg Tab RxNorm: 119716 1 Tablet(s) PO Q4H prn nausea 200910/16/2010 Inactive 16.2 mg-0.1037 mg-0.0194 mg Tab RxNorm: 7551746 2 Tablet(s) PO TID PRN for gas and cramping 09/17/2010 10/21/2010 Inactive Gabapentin 800 mg Tab RxNorm: 278980 1 Tablet(s) PO QD 09/16/2010 Inactive ProAir HFA 90 mcg/Actuation Aerosol Inhaler RxNorm: 228708 2 Puff(s) INH Q4H prn shortness of breath 09/15/2010 12/13/2010 Inactive gabapentin 800 mg Tab RxNorm: 810400 1 Tablet(s) PO QD 09/15/2010 Inactive Prevacid 30 mg Cap RxNorm: 547109 1 Capsule(s) PO QD 09/15/201004/12 Inactive loratadine 10 mg Tab RxNorm: 9377122 1 Tablet(s) PO QD 09/15/2010 Inactive Premarin 0.9 mg Tab RxNorm: 602259 1 Tablet(s) PO QD 09/15/201004/12 Inactive Synthroid 112 mcg Tab RxNorm: 733423 1 Tablet(s) PO QD 09/15/2010 Inactive metformin ER 500 mg 24 hr Tab RxNorm: 047526 1 Tablet(s) PO QD 08/2304/12/2011 Inactive Symbicort 160 mcg-4.5 mcg/Actuation Inhalation HFA Aer osol Inhaler RxNorm: 4191363 2 Puff(s) INH BID 09/15/2010 04/12/2011 Inactive diazepam 10 mg Tab RxNorm: 276358 1 Tablet(s) PO BID and PRN 200910/13/2010 Inactive Phentermine 37.5 mg Cap RxNorm: 433840 1 Capsule(s) PO QD 09/02/2010 11/02/2011 Inactive ProAir HFA 90 mcg/Actuation Aerosol Inhaler RxNorm: 636969 2 Puff(s) INH Q4H prn shortness of breath 08/07/2010 No Stop Date Active Premarin 0.9 mg Tab RxNorm: 421104 1 Tablet(s) PO QD 08/07/201009/14 Inactive Loratadine 10 mg Tab RxNorm: 1881193 1 Tablet(s) PO QD 08/07/2010 Inactive Lactulose 10 gram/15 mL Oral Soln RxNorm: 102303 1 Unit Dose PO QD 08/07/2010 02/12/2019 Inactive Zofran 4 mg Tab RxNorm: 523038 1 Tablet(s) PO Q4H prn nausea 2009 No Stop Date Active Gabapentin 800 mg Tab RxNorm: 797337 1 Tablet(s) PO QD 08/07/2010 Inactive Synthroid 112 mcg Tab RxNorm: 508051 1 Tablet(s) PO QD 08/07/2010 Inactive Metformin ER 500 mg 24 hr Tab RxNorm: 732003 1 Tablet(s) PO QD 07/2309/14/2010 Inactive Vitamin D 1,000 unit Tab RxNorm: 609290 1 Tablet(s) PO TID 08/07/20 10 02/12/2019 Inactive Symbicort 160 mcg-4.5 mcg/Actuation Inhalation HFA Aer osol Inhaler RxNorm: 0969013 2 Puff(s) INH BID 08/07/2010 09/14/2010 Inactive Prevacid 30 mg Cap RxNorm: 537143 1 Capsule(s) PO QD 08/07/201009/14 Inactive Metformin ER 500 mg 24 hr Tab RxNorm: 242725 1 Tablet(s) PO QD 06/2308/06/2010 Inactive Vitamin D 1,000 unit Tab RxNorm: 189053 1 Tablet(s) PO TID 07/14/20 10 08/06/2010 Inactive Synthroid 112 mcg Tab RxNorm: 640615 1 Tablet(s) PO QD 07/14/2010 Inactive Lactulose 10 gram/15 mL Oral Soln RxNorm: 320424 1 Unit Dose PO QD 07/14/2010 08/06/2010 Inactive Levaquin 500 mg Tab RxNorm: 043237 1 Tablet(s) PO QD 07/14/201007/27 Inactive Premarin 0.9 mg Tab RxNorm: 299175 1 Tablet(s) PO QD 07/14/201008/06 Inactive ProAir HFA 90 mcg/Actuation Aerosol Inhaler RxNorm: 536876 2 Puff(s) INH Q4H prn shortness of breath 07/14/2010 No Stop Date Active Prevacid 30 mg Cap RxNorm: 324221 1 Capsule(s) PO QD 07/14/201008/06 Inactive Zofran 4 mg Tab RxNorm: 961979 1 Tablet(s) PO Q4H prn nausea 2009 No Stop Date Active Symbicort 160 mcg-4.5 mcg/Actuation Inhalation HFA Aer osol Inhaler RxNorm: 9871549 2 Puff(s) INH BID 07/14/2010 08/06/2010 Inactive Loratadine 10 mg Tab RxNorm: 7448656 1 Tablet(s) PO QD 07/14/2010 Inactive Gabapentin 800 mg Tab RxNorm: 395259 1 Tablet(s) PO QD 07/14/2010 Inactive Metformin ER 500 mg 24 hr Tab RxNorm: 084736 1 Tablet(s) PO 010 07/13/2010 Inactive Diazepam 10 mg Tab RxNorm: 039884 1 Tablet(s) PO BID and PRN 200909/06/2010 Inactive Premarin 0.9 mg Tab RxNorm: 218619 1 Tablet(s) PO QD 06/09/201007/13 Inactive Zofran 4 mg Tab RxNorm: 878349 1 Tablet(s) PO Q4H prn nausea 2009 No Stop Date Active ProAir HFA 90 mcg/Actuation Aerosol Inhaler RxNorm: 175388 2 Puff(s) INH Q4H prn shortness of breath 06/09/2010 No Stop Date Active Gabapentin 800 mg Tab RxNorm: 292807 1 Tablet(s) PO QD 06/09/2010 Inactive Loratadine 10 mg Tab RxNorm: 4466954 1 Tablet(s) PO QD 06/09/2010 Inactive Lactulose 10 gram/15 mL Oral Soln RxNorm: 912569 1 Unit Dose PO QD 06/09/2010 07/13/2010 Inactive Prevacid 30 mg Cap RxNorm: 930066 1 Capsule(s) PO QD 06/09/201007/13 Inactive Synthroid 112 mcg Tab RxNorm: 265047 1 Tablet(s) PO QD 06/09/2010 Inactive Symbicort 160 mcg-4.5 mcg/Actuation Inhalation HFA Aer osol Inhaler RxNorm: 8627384 2 Puff(s) INH BID 06/09/2010 07/13/2010 Inactive Omnicef 300 mg Cap RxNorm: 043363 2 Capsule(s) PO QD 05/07/201005/20 Inactive Metformin 500 mg Tab RxNorm: 140128 1 Tablet(s) PO QD 05/06/201005/22 Inactive ProAir HFA 90 mcg/Actuation Aerosol Inhaler RxNorm: 314400 2 Puff(s) INH Q4H prn shortness of breath 05/06/2010 No Stop Date Active lactulose 10 gram/15 mL Oral Soln RxNorm: 080074 1 Unit Dose PO QD 05/06/2010 06/10/2011 Inactive Loratadine 10 mg Tab RxNorm: 8421596 1 Tablet(s) PO QD 05/06/2010 Inactive Synthroid 112 mcg Tab RxNorm: 162557 1 Tablet(s) PO QD 05/06/2010 Inactive Symbicort 160 mcg-4.5 mcg/Actuation Inhalation HFA Aer osol Inhaler RxNorm: 5908089 2 Puff(s) INH BID 05/06/2010 06/08/2010 Inactive Gabapentin 800 mg Tab RxNorm: 664318 1 Tablet(s) PO QD 05/06/2010 Inactive 16.2 mg-0.1037 mg-0.0194 mg Tab RxNorm: 1243776 2 Tablet(s) PO TID PRN for gas and cramping 05/06/2010 05/12/2010 Inactive Zofran 4 mg Tab RxNorm: 442204 1 Tablet(s) PO Q4H prn nausea 200904/13/2010 Inactive MS Contin 60 mg tablet,extended release RxNorm: 996921 3 Tablet (s) PO BID 04/09/2010 05/08/2010 Inactive Soma 350 mg Tab RxNorm: 442262 2 Tablet(s) PO TID 04/09/2010 05/08/20 10 Inactive Symbicort 160 mcg-4.5 mcg/Actuation Inhalation HFA Aer osol Inhaler RxNorm: 3014770 2 Puff(s) INH BID 04/08/2010 05/05/2010 Inactive Doxycycline 100 mg Cap RxNorm: 9851557 1 Capsule(s) PO BID 04/08/20 10 04/17/2010 Inactive Triamterene-Hydrochlorothiazide 37.5 mg-25 mg Cap RxNorm: 19 8316 1 Capsule(s) PO QAM 04/08/2010 09/04/2010 Inactive fluoxetine 40 mg Cap RxNorm: 078734 1 Capsule(s) PO QAM 04/08/2010 Inactive Morphine SR 120 mg multiphase 24 hr Cap RxNorm: 706602 1 Capsul e(s) PO 03/11/2010 04/07/2010 Inactive Endocet 10 mg-325 mg Tab RxNorm: 7714098 1-2 Tablet(s) PO Q4H ME N PAIN 03/11/2010 04/09/2010 Inactive Savella 100 mg Tab RxNorm: 189327 1 Tablet(s) PO BID 03/10/201004/09 Inactive Soma 350 mg Tab RxNorm: 644772 1 Tablet(s) PO TID prn spasm 010 04/09/2010 Inactive Savella 100 mg Tab RxNorm: 435379 1 Tablet(s) PO BID 02/03/201004/09 Inactive Aspirin 81 mg Tab RxNorm: 368283 1 Tablet(s) PO QD No Start Date Active Zyrtec 10 mg Tab RxNorm: 8618216 1 Tablet(s) PO QD No Start Date Active One Touch Ultra Test Strips RxNorm: Misc test at least t wice daily. No Start Date Active coenzyme Q10 200 mg capsule RxNorm: 722944 1 Capsule(s) PO QD No Star t Date Active One Touch Ultra Test Strips RxNorm: InVt BID Zainab t blood sugar at least twice daily. No Start Date 11/10/2010 Inactive Gabapentin 800 mg Tab RxNorm: 675685 1 Tablet(s) PO QD No Start Date 05/05/2010 Inactive Abilify 5 mg tablet RxNorm: 556790 1 Tablet(s) PO QD No Start Date Inactive Chantix 1 mg Tab RxNorm: 514193 1 Tablet(s) PO BID No Start Date 10/22 Inactive Ozempic 0.25 mg or 0.5 mg (2 mg/1.5 mL) subcutaneous p en injector RxNorm: 6846930 .25 Milligram(s) SQ QW No Start Date 07/04/2019 Inactive lancets 28 gauge RxNorm: Miscellaneous As needed for blo od glucose sticks No Start Date 08/23/2013 Inactive potassium chloride ER 20 mEq tablet,extended release RxNorm: 026967 2 Tablet(s) PO QD No Start Date 09/26/2018 Inactive Ventolin HFA 90 mcg/actuation Aerosol Inhaler RxNorm: 736931 2 Puff(s) INH Q4H prn No Start Date 01/17/2012 Inactive potassium chloride ER 20 mEq tablet,extended release RxNorm: 343912 2 Tablet(s) PO QD No Start Date 10/19/2018 Inactive Januvia 100 mg tablet RxNorm: 925481 1 Tablet(s) PO QD No Start Date 09/10/2015 Inactive Medrol (Aníbal) 4 mg Tabs in a Dose Pack RxNorm: 365074 Tablet(s) PO N o Start Date 08/09/2011 Inactive as directed Zithromax Z-Aníbal 250 mg Tab RxNorm: 762685 Tablet(s) PO No Start Date 01/25/2012 Inactive as directed vitamin B6-vitamin E-magnesium tablet RxNorm: 1 Tablet(s ) PO QHS with INH No Start Date 03/30/2018 Inactive prednisone 20 mg Tab RxNorm: 033454 1 Tablet(s) PO TID for 1wk then 1 po BID for 1wk No Start Date 01/25/2012 Inactive furosemide 40 mg tablet RxNorm: 949445 1 Tablet(s) PO QAM No Start Date 10/09/2018 Inactive Vitamin D3 1000 units Capsule RxNorm: 1 Capsule(s) PO TID No S tart Date 03/19/2015 Inactive Zofran 4 mg Tab RxNorm: 659420 1 Tablet(s) PO Q4H prn nausea No Sta rt Date 04/13/2010 Inactive Premarin 0.625 mg/g Vaginal Cream RxNorm: 591648 1 Gram (s) VAG QHS 3 times a week No Start Date 09/22/2017 Inactive oxycodone 10 mg tablet RxNorm: 2870255 1-2 Tablet(s) PO QID as n eeded for pain No Start Date 11/04/2015 Inactive Nicoderm CQ 21 mg/24 hr daily Patch RxNorm: 153891 1 Applicatio n TD QD No Start Date 08/05/2015 Inactive Topamax 50 mg tablet RxNorm: 213177 1/2 Tablet(s) PO QH S for 1wk then 1 po q HS for 1wk then 2 po q HS No Start Date 06/27/2012 Inactive Chantix Starting Month Aníbal 0.5 mg (11)-1 mg (3x14) Tab s in a Dose Pack RxNorm: 140594 Tablet(s) PO as directed No Start Date 03/01/2011 Inactive Trulicity 0.75 mg/0.5 mL subcutaneous pen injector RxNorm: 1 690989 Milliliter(s) SQ No Start Date 07/04/2019 Inactive Medrol (Aníbal) 4 mg Tabs in a Dose Pack RxNorm: 737657 Tablet(s) PO N o Start Date 01/25/2012 Inactive as directed Duragesic 100 mcg/hr Transderm Patch RxNorm: 352210 2 A pplication TD Q48H for pain No Start Date 09/05/2013 Inactive Premarin 0.9 mg Tab RxNorm: 860849 1 Tablet(s) PO QD No Start Date Inactive Zithromax Z-Aníbal 250 mg Tab RxNorm: 691337 Tablet(s) PO as direc chinmay No Start Date 01/25/2012 Inactive ondansetron 8 mg disintegrating tablet RxNorm: 532521 1 Tablet(s) PO Q6H as needed No Start Date 10/10/2018 Inactive oxycodone 15 mg tablet RxNorm: 9664507 1 Tablet(s) PO QID as nee ded for pain No Start Date 03/05/2019 Inactive ProAir HFA 90 mcg/Actuation Aerosol Inhaler RxNorm: 176320 2 Puff(s) INH Q4H prn for wheezing or shortness of breath No Start Date 12/21/2011 Inactive pravastatin 40 mg tablet RxNorm: 806610 1/2 Tablet(s) PO QOD No Sta rt Date 04/09/2015 Inactive ipratropium-albuterol 0.5 mg-3 mg(2.5 mg base)/3 mL ne bulization soln RxNorm: 5935405 1 Unit Dose INH Q4H as needed No Start Date 09/09/2016 Inactive furosemide 40 mg tablet RxNorm: 316218 1 Tablet(s) PO QAM as ne eded No Start Date 09/24/2019 Inactive Vitamin D2 oral RxNorm: 4018 oral No Start Date 03/18/2015 Inacti ve pravastatin 40 mg tablet RxNorm: 012011 1/2 Tablet(s) PO QD No Star t Date 04/09/2015 Inactive ondansetron HCl 4 mg tablet RxNorm: 308329 1 Tablet(s) PO Q4H as needed for nausea and vomiting No Start Date 04/07/2016 Inactive furosemide 40 mg tablet RxNorm: 391056 2 Tablet(s) PO QAM No Start Date 09/26/2018 Inactive gabapentin 800 mg tablet RxNorm: 984331 1/2 Tablet(s) PO BID No Sta rt Date 06/21/2017 Inactive gabapentin 800 mg tablet RxNorm: 114716 1/2 Tablet(s) PO BID No Sta rt Date 07/05/2017 Inactive ProAir HFA 90 mcg/Actuation Aerosol Inhaler RxNorm: 747699 2 Puff(s) INH Q4H prn shortness of breath No Start Date 05/05/2010 Inactive scopolamine 1 mg over 3 days transdermal patch RxNorm: 66604 2 1 Application TD behind ear. Take off after three days No Start Date 10/10/2018 Inactive Metformin 500 mg Tab RxNorm: 898966 1 Tablet(s) PO QD No Start Date 0 05/05/2010 Inactive MS Contin 200 mg Tab RxNorm: 267035 1 Tablet(s) PO BID No Start Date 08/20/2011 Inactive Belladonna-Phenobarbital 48 mg tablet,extended release RxNor m: 2 Tablet(s) PO TID No Start Date 06/04/2016 Inactive Synthroid 112 mcg Tab RxNorm: 862491 1 Tablet(s) PO QD No Start Date 05/05/2010 Inactive Zegerid 40 mg-1.1 gram Cap RxNorm: 447534 1 Capsule(s) PO QD No Sta rt Date 01/25/2012 Inactive Premarin 0.625 mg/g Vaginal Cream RxNorm: 112842 VAG In sert 1gm vaginally at bedtime 3 times weekly No Start Date 01/17/2011 Inactive potassium chloride ER 20 mEq tablet,extended release RxNorm: 020068 1 Tablet(s) PO QD No Start Date 04/24/2019 Inactive methocarbamol 750 mg tablet RxNorm: 887120 2 Tablet(s) PO TID as needed for muscle spasm No Start Date 07/08/2014 Inactive Biaxin XL Aníbal 500 mg 24 hr Tab RxNorm: 126243 Tablet(s) PO as d irected No Start Date 04/24/2013 Inactive Vitamin D3 1,000 unit tablet RxNorm: 806309 3 Tablet(s) PO QD No St art Date 06/01/2017 Inactive Morphine SR 120 mg multiphase 24 hr Cap RxNorm: 669586 1 Capsul e(s) PO BID No Start Date 04/09/2010 Inactive Silvadene 1 % topical cream RxNorm: 512701 1 Application TOP BI D to burn area No Start Date 01/31/2017 Inactive Prednisone 20 mg Tab RxNorm: 428388 1 Tablet(s) PO TID for 3days then BID for 4days No Start Date 01/25/2012 Inactive gabapentin 600 mg tablet RxNorm: 539970 1 Tablet(s) PO BID No Start Date 01/21/2015 Inactive topiramate 50 mg tablet RxNorm: 259103 1 Tablet(s) PO QHS No Start Date 03/30/2018 Inactive Januvia 100 mg tablet RxNorm: 602304 1/2 Tablet(s) PO QD No Start D ate 12/25/2015 Inactive Diazepam 10 mg Tab RxNorm: 962769 1 Tablet(s) PO BID and PRN No Sta rt Date 06/08/2010 Inactive Medication Administered No Medication Administered data Immunizations Vaccine Codes Date Status Influenza CVX: 141 09/28/2012 Pneumovax Unknown 09/28/2012 Influenza (Adult) CVX: 141 09/02/2010 Results No Results data Procedures Procedure Codes Date THER/PROPH/DIAG INJ SC/IM CPT-4: 76958 07/10/2019 METHYLPREDNISOLONE INJECTION CPT-4: J2930 07/10/2019 URINALYSIS NONAUTO W/O SCOPE CPT-4: 24892 09/06/2018 URINE CULTURE/ COLONY COUNT CPT-4: 00660 09/06/2018 DRAIN/INJECT JOINT/BURSA CPT-4: 82405 04/29/2017 TRIAMCINOLONE ACET INJ NOS CPT-4: J3301 04/29/2017 DEXAMETHASONE SODIUM PHOS CPT-4: J1100 04/29/2017 INFLUENZA ASSAY W/OPTIC CPT-4: 45594 12/01/2016 RESPIRATORY CULTURE & STAIN CPT-4: 85059 07/09/2016 TB INTRADERMAL TEST CPT-4: 77759 04/21/2016 DRAIN/INJECT JOINT/BURSA CPT-4: 52427 11/07/2013 METHYLPREDNISOLONE 40 MG INJ CPT-4: J1030 11/07/2013 TRIAMCINOLONE ACET INJ NOS CPT-4: J3301 11/07/2013 DRAIN/INJECT JOINT/BURSA CPT-4: 69897 08/08/2013 METHYLPREDNISOLONE 40 MG INJ CPT-4: J1030 08/08/2013 TRIAMCINOLONE ACET INJ NOS CPT-4: J3301 08/08/2013 FLU VACCINE 3 YRS & > IM UP 64 CPT-4: 50095 2 PNEUMOCOCCAL VACC 23 ADITYA IM CPT-4: 58834 09/28/2012 IMMUNIZATION ADMIN CPT-4: 20185 09/28/2012 IMMUNIZATION ADMIN EACH ADD CPT-4: 28457 09/28/2012 FLU VACCINE 3 YRS & > IM UP 64 CPT-4: 03965 0 IMMUNIZATION ADMIN CPT-4: 46375 09/02/2010 METHYLPREDNISOLONE INJECTION CPT-4: J2930 05/07/2010 THER/PROPH/DIAG INJ SC/IM CPT-4: 65369 05/07/2010 Vital Signs Date Vital 04/24/2020 Blood [...] 1: 122/78 Code: 8480-6 BMI: 29.5 Code: 45047-0 Heart Rate 1: 76 bpm Height: 5'4" Respiratory Rate: 20 bpm SpO2: 96% Tempera ture: 37.0 (C) / 98.6 (F) Weight: 172 lbs 01/25/2019 Blood Pressure 1: 132/80 Code: 8480-6 BMI: 29.7 Code: 83196-1 Heart Rate 1: 84 bpm Height: 5'4" Respiratory Rate: 22 bpm SpO2: 98% Tempera ture: 36.9 (C) / 98.4 (F) Weight: 173 lbs 01/03/2019 Blood Pressure 1: 116/70 Code: 8480-6 BMI: 29.5 Code: 86133-2 Heart Rate 1: 92 bpm Height: 5'4" Respiratory Rate: 24 bpm SpO2: 98% Tempera ture: 37.2 (C) / 98.9 (F) Weight: 172 lbs 11/21/2018 Blood Pressure 1: 146/82 Code: 8480-6 BMI: 28.2 Code: 52091-8 Heart Rate 1: 88 bpm Height: 5'4" Respiratory Rate: 22 bpm SpO2: 97% Tempera ture: 36.9 (C) / 98.4 (F) Weight: 164 lbs 10/27/2018 Blood Pressure 1: 122/70 Code: 8480-6 BMI: 27.6 Code: 44569-0 Heart Rate 1: 88 bpm Height: 5'4" Respiratory Rate: 20 bpm SpO2: 96% Tempera ture: 36.8 (C) / 98.3 (F) Weight: 161 lbs 10/18/2018 Blood Pressure 1: 126/70 Code: 8480-6 BMI: 28.3 Code: 88217-6 Heart Rate 1: 76 bpm Height: 5'4" Respiratory Rate: 20 bpm SpO2: 95% Tempera ture: 37.0 (C) / 98.6 (F) Weight: 165 lbs 09/27/2018 Blood Pressure 1: 124/78 Code: 8480-6 BMI: 27.1 Code: 19214-2 Heart Rate 1: 88 bpm Height: 5'4" Respiratory Rate: 20 bpm SpO2: 98% Tempera ture: 36.4 (C) / 97.6 (F) Weight: 158 lbs 09/14/2018 Blood Pressure 1: 140/72 Code: 8480-6 BMI: 26.1 Code: 83716-3 Heart Rate 1: 100 bpm Height: 5'4" Respiratory Rate: 20 bpm SpO2: 97% Tempera ture: 36.9 (C) / 98.4 (F) Weight: 152 lbs 09/06/2018 Blood Pressure 1: 156/82 Code: 8480-6 BMI: 26.3 Code: 12182-9 Heart Rate 1: 100 bpm Height: 5'4" Respiratory Rate: 28 bpm SpO2: 95% Tempera ture: 37.2 (C) / 98.9 (F) Weight: 153 lbs 08/16/2018 Blood Pressure 1: 130/78 Code: 8480-6 Heart Rate 1: 87 bpm Respiratory Rate: 24 bpm SpO2: 94% Temperature: 36.9 (C) / 98.4 (F) We ight: 147 lbs 8 oz 07/07/2018 Blood Pressure 1: 116/78 Code: 8480-6 BMI: 22.7 Code: 45779-4 Heart Rate 1: 88 bpm Height: 5'4" Respiratory Rate: 22 bpm SpO2: 98% Tempera ture: 36.5 (C) / 97.7 (F) Weight: 132 lbs 05/31/2018 Blood Pressure 1: 128/78 Code: 8480-6 BMI: 22.3 Code: 46606-0 Heart Rate 1: 92 bpm Height: 5'4" Respiratory Rate: 26 bpm SpO2: 94% Tempera ture: 36.7 (C) / 98.1 (F) Weight: 130 lbs 03/31/2018 Blood Pressure 1: 136/78 Code: 8480-6 BMI: 21.5 Code: 68455-8 Heart Rate 1: 76 bpm Height: 5'4" Respiratory Rate: 24 bpm SpO2: 95% Tempera ture: 36.8 (C) / 98.3 (F) Weight: 125 lbs 01/26/2018 Blood Pressure 1: 142/64 Code: 8480-6 BMI: 20.6 Code: 20399-1 Heart Rate 1: 90 bpm Height: 5'4" Respiratory Rate: 24 bpm SpO2: 92% Tempera ture: 36.3 (C) / 97.3 (F) Weight: 120 lbs 10/26/2017 Blood Pressure 1: 124/70 Code: 8480-6 BMI: 20.3 Code: 43384-5 Heart Rate 1: 76 bpm Height: 5'4" Respiratory Rate: 22 bpm SpO2: 94% Tempera ture: 36.7 (C) / 98.1 (F) Weight: 118 lbs 09/23/2017 Blood Pressure 1: 106/70 Code: 8480-6 BMI: 19.2 Code: 84905-5 Heart Rate 1: 76 bpm Height: 5'4" Respiratory Rate: 20 bpm SpO2: 94% Tempera ture: 36.8 (C) / 98.3 (F) Weight: 112 lbs 08/12/2017 Blood Pressure 1: 116/68 Code: 8480-6 BMI: 20.1 Code: 24881-8 Heart Rate 1: 80 bpm Height: 5'4" Respiratory Rate: 22 bpm SpO2: 95% Tempera ture: 36.8 (C) / 98.2 (F) Weight: 117 lbs 07/06/2017 Blood Pressure 1: 136/78 Code: 8480-6 BMI: 20.6 Code: 66094-2 Heart Rate 1: 76 bpm Height: 5'4" Respiratory Rate: 24 bpm SpO2: 96% Tempera ture: 36.8 (C) / 98.2 (F) Weight: 120 lbs 06/02/2017 Blood Pressure 1: 112/70 Code: 8480-6 Heart Rate 1: 92 bpm Height: 5'4" Respiratory Rate: 24 bpm SpO2: 95% Temperature: 37.0 (C) / 98.6 (F) Weight: 04/29/2017 Blood Pressure 1: 94/52 Code: 8480-6 BMI: 19.6 C ode: 70258-1 Heart Rate 1: 84 bpm Height: 5'4" [...] 92/58 Code: 8480-6 BMI: 19.2 C ode: 88052-3 Heart Rate 1: 84 bpm Height: 5'4" Respiratory Rate: 26 bpm SpO2: 95% Tempera ture: 36.7 (C) / 98.0 (F) Weight: 112 lbs 12/01/2016 Blood Pressure 1: 114/70 Code: 8480-6 BMI: 19.2 Code: 19409-4 Heart Rate 1: 96 bpm Height: 5'4" Respiratory Rate: 28 bpm SpO2: 93% Tempera ture: 38.3 (C) / 101.0 (F) Weight: 112 lbs 10/27/2016 Blood Pressure 1: 126/66 Code: 8480-6 BMI: 19.6 Code: 41842-8 Heart Rate 1: 92 bpm Height: 5'4" Respiratory Rate: 28 bpm SpO2: 90% Tempera ture: 36.8 (C) / 98.3 (F) Weight: 114 lbs 09/09/2016 Blood Pressure 1: 126/74 Code: 8480-6 Heart Rate 1: 104 bpm Height: 5'4" Respiratory Rate: 32 bpm SpO2: 88% Temperature: 37 .2 (C) / 99.0 (F) 08/26/2016 Blood Pressure 1: 134/82 Code: 8480-6 BMI: 22.0 Code: 14431-5 Heart Rate 1: 84 bpm Height: 5'4" Respiratory Rate: 24 bpm SpO2: 94% Tempera ture: 36.8 (C) / 98.3 (F) Weight: 128 lbs 05/21/2016 Blood Pressure 1: 142/80 Code: 8480-6 BMI: 21.6 Code: 59762-7 Heart Rate 1: 104 bpm Height: 5'4" Respiratory Rate: 22 bpm SpO2: 93% Tempera ture: 36.0 (C) / 96.8 (F) Weight: 126 lbs 03/25/2016 Blood Pressure 1: 126/62 Code: 8480-6 Heart Rate 1: 88 bpm Respiratory Rate: 20 bpm SpO2: 92% Temperature: 36.8 (C) / 98.3 (F) We ight: 130 lbs 01/23/2016 Blood Pressure 1: 146/82 Code: 8480-6 BMI: 24.1 Code: 25902-3 Heart Rate 1: 92 bpm Height: 5'3" Respiratory Rate: 22 bpm Temperature: 37 .1 (C) / 98.8 (F) Weight: 136 lbs 12/26/2015 Blood Pressure 1: 142/78 Code: 8480-6 BMI: 24.6 Code: 27447-5 Heart Rate 1: 78 bpm Height: 5'3" Respiratory Rate: 20 bpm Temperature: 36 .7 (C) / 98.1 (F) Weight: 139 lbs 12/03/2015 Blood Pressure 1: 126/60 Code: 8480-6 BMI: 24.6 Code: 37811-6 Heart Rate 1: 100 bpm Height: 5'3" Respiratory Rate: 28 bpm Temperature: 37 .6 (C) / 99.6 (F) Weight: 139 lbs 09/10/2015 Blood Pressure 1: 124/64 Code: 8480-6 BMI: 23.7 Code: 07892-9 Heart Rate 1: 88 bpm Height: 5'3" Respiratory Rate: 24 bpm SpO2: 95% Tempera ture: 36.4 (C) / 97.6 (F) Weight: 134 lbs 08/06/2015 Blood Pressure 1: 114/76 Code: 8480-6 BMI: 23.2 Code: 68783-5 Heart Rate 1: 88 bpm Height: 5'3" Respiratory Rate: 22 bpm Temperature: 36 .6 (C) / 97.9 (F) Weight: 131 lbs 07/18/2015 Blood Pressure 1: 144/78 Code: 8480-6 BMI: 23.7 Code: 59357-8 Heart Rate 1: 84 bpm Height: 5'3" Respiratory Rate: 20 bpm Temperature: 37 .2 (C) / 99.0 (F) Weight: 134 lbs 04/10/2015 Blood Pressure 1: 110/64 Code: 8480-6 Heart Rate 1: 80 bpm Height: Respiratory Rate: 20 bpm Temperature: 37.1 (C) / 98.8 (F) Weight: 03/05/2015 Blood Pressure 1: 136/80 Code: 8480-6 BMI: 23.9 Code: 01327-7 Heart Rate 1: 76 bpm Height: 5'3" Respiratory Rate: 24 bpm Temperature: 37 .0 (C) / 98.6 (F) Weight: 135 lbs 01/30/2015 Blood Pressure 1: 142/80 Code: 8480-6 BMI: 23.0 Code: 60753-2 Heart Rate 1: 96 bpm Height: 5'3" Respiratory Rate: 22 bpm Temperature: 36 .2 (C) / 97.2 (F) Weight: 130 lbs 01/02/2015 Blood Pressure 1: 124/70 Code: 8480-6 BMI: 23.4 Code: 30122-9 Heart Rate 1: 84 bpm Height: 5'3" Respiratory Rate: 24 bpm SpO2: 95% Tempera ture: 36.9 (C) / 98.5 (F) Weight: 132 lbs 10/03/2014 Blood Pressure 1: 106/68 Code: 8480-6 BMI: 22.5 Code: 87821-1 Heart Rate 1: 88 bpm Height: 5'3" Respiratory Rate: 24 bpm Temperature: 37 .0 (C) / 98.6 (F) Weight: 127 lbs 08/27/2014 Blood Pressure 1: 124/68 Code: 8480-6 BMI: 21.1 Code: 64910-1 Heart Rate 1: 88 bpm Height: 5'3" [...] 1: 120/70 Code: 8480-6 BMI: 19.2 Code: 65829-3 Heart Rate 1: 70 bpm Height: 5'4" Respiratory Rate: 20 bpm Temperature: 36 .9 (C) / 98.4 (F) Weight: 112 lbs 06/28/2013 Blood Pressure 1: 102/68 Code: 8480-6 BMI: 19.6 Code: 43243-8 Heart Rate 1: 76 bpm Height: 5'4" Respiratory Rate: 20 bpm Temperature: 36 .8 (C) / 98.2 (F) Weight: 114 lbs 05/31/2013 Blood Pressure 1: 106/70 Code: 8480-6 BMI: 18.9 Code: 30219-1 Heart Rate 1: 100 bpm Height: 5'4" Respiratory Rate: 20 bpm Temperature: 36 .4 (C) / 97.6 (F) Weight: 110 lbs 05/03/2013 Blood Pressure 1: 126/70 Code: 8480-6 BMI: 19.1 Code: 96586-7 Heart Rate 1: 88 bpm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 Z88.5 03/12/2020 Appointment: [facility] Rent[facility]el[facility] [facility] [facility] 03/12/2020 Patient Education: prednisone- [employer] Coupon [id number] https://www.ZenDoc/samplemd/resources/getResource/61/76786y5u-7671-37pm-2m Completed 03/12/2020 Patient Education: hydroxyzine HCl- [employer] Coupon [id number] https://www.ZenDoc/PathCentral/resources/getResource/61/58813135-q47l-731u-g1 Completed 03/12/2020 Visit Diagnosis Plan: Spinal stenosis, [...] lives with her daughter who is her cloth cutting machine operator and she will monitor her respiratory status and take her to the ER if needed--need to consider naloxone for daughter to have on hand--will discussed this with daughter and send out ICD-9 : 724.03 ICD-10 : M48.062 02/21/2020 Appointment: Vika Renteria WPtel: [phone] TELEMEDICINE 02/21/2020 Visit Diagnosis Plan: Urticaria [...] TELEMEDICINE 02/13/2020 Patient Education: prednisone- [employer] Coupon [id number] https://www.ZenDoc/samplemd/resources/getResource/61/3b3bx4rz-c8x3-41uf-n7 Completed 02/13/2020 Patient Education: oxycodone- [employer] Coupon [id number] https://www.PathCentral.com/samplemd/resources/getResource/61/3n90mefz-49j2-2j07-9n Completed 02/13/2020 Care Plan: ECHO EXAM OF ABDOMEN liver US LOINC : 68531-0 Pending 12/01/2019 Visit Diagnosis Plan: Localized edema Discussion: Sade [...] ICD-9 : 724.03 ICD-10 : M48.062 11/29/2019 Visit Diagnosis Plan: Other fatigue Discussion: Update CBC and thyroid lab ICD-9 : 780.79 ICD-10 : R53.83 11/29/2019 Appointment: [facility]el[facility] [facility] [place] [facility] 11/29/2019 Appointment: Vika Renteria WPtel: [address] [facility] [place] CANCELED 11/06/2019 Visit Diagnosis Plan: Chronic [...] G89.4 10/30/2019 Appointment: Vika Renteria [facility]Ptel[facility] [address] [facility] [place] FO[facility] 10/30/2019 Care Plan: X-RAY EXAM L-S SPINE 2/3 VWS LOINC : 78406-3 Pending 10/30/2019 Visit Diagnosis Plan: Chronic pain syndrome Discussion : Change fentanyl to MS Contin 100mg po BID--current morphine dose equivalent is 240mg a day Follow Up: 1 months ICD-9 : 338.4 ICD-10 : G89.4 10/25/2019 Appointment: Vika Renteria WPtel: [facility] [place] [facility] 10/25/2019 Patient Education: oxycodone- [employer] Coupon [id number] https://www.PathCentral.SEVENROOMS/PathCentral/resources/getResource/61/16z1295w-9h78-0xs0-c7 Completed 10/25/2019 Visit Diagnosis Plan: Chronic obstructive pulmonary di sease, unspecified Discussion: Continue with SVNs q4hrs prn ICD-9 : 496 ICD-10 : J44.9 07/26/2019 Visit Diagnosis Plan: Epigastric pain Discussion: Proc eed with EGD Fwup after EGD ICD-9 : 789.06 ICD-10 : R10.13 07/26/2019 Visit Diagnosis Plan: Nausea Discussion: Stop trulicit y and resume metformin ICD-9 : 787.02 ICD-10 : R11.0 07/26/2019 Appointment: Vika Renteria WPtel: [address] [place], [place] [address] [place] FOLLOW UP 07/26/2019 Care Plan: Referral Order SNOMED-CT : 30 [id number] Cancelled 07/26/2019 Care Plan: CHEST X-RAY 2VW FRONTAL&LATL LOINC : 87705-2 Pending 07/20/2019 Visit Diagnosis Plan: Edema, unspecified Discussion: C heck CMP now Low Na diet Unable to give UA in office ICD-9 : 782.3 ICD-10 : R60.9 07/19/2019 Visit Diagnosis Plan: Chronic respiratory failure with hypoxia Discussion: Requires and benefits from continuous oxygen therapy ICD-9 : 518.83 ICD-10 : J96.11 07/19/2019 Visit Diagnosis Plan: Other fatigue Discussion: Check stat CBC, TSH, Free T4 ICD-9 : 780.79 ICD-10 : R53.83 07/19/2019 Visit Diagnosis Plan: Chronic obstructiv e pulmonary disease with (acute) exacerbation Discussion: Increase SVNS with duoneb to q4hrs ICD-9 : 491.21 ICD-10 : J44.1 07/19/2019 Appointment: Vika Renteria WPtel: [address] [place], [place] [phone] [place] FOLLOW UP 07/19/2019 Visit Diagnosis Plan: Chronic obstructiv e pulmonary disease with acute lower respiratory infection Discussion: Solumedrol 125mg IM x1 Medro l Dose Pack Augmentin Continue oxygen SVNS with duoneb q4hrs To ER if worsening Recheck 1 week ICD-9 : 491.22 ICD-10 : J44.0 07/10/2019 Appointment: Vika Renteria WPtel: [facility] [place] [facility] 07/10/2019 Patient Education: Medrol (Aníbal)- [employer] Coupon [id number] Completed 07/10/2019 Patient Education: omeprazole- [employer] Coupon [id number] Completed 07/10/2019 Visit Diagnosis Plan: Type 2 diabetes mellitus with hy perglycemia Discussion: Accuchecks daily Continue current ozempic dose Check CMP and HbA1C now and then in 3mos Follow Up: 1 months ICD-9 : 250.00 ICD-10 : E11.65 06/05/2019 Visit Diagnosis Plan: Other infective otitis externa, left ear Discussion: Cortisporin otic susp ICD-9 : 380.16 ICD-10 : H60.392 06/05/2019 Appointment: Vika Renteria WPtel: [address] [place], [place] [address] FOLLOW UP 06/05/2019 Patient Education: ntqdrqkp-exwjspapj-XD- [employer]imizeRX C oupon [id number] https://www.PathCentral.com/samplemd/resources/getResource/61/6rwlot2g-65v8-1772-q5 Completed 06/05/2019 Visit Diagnosis Plan: Type 2 diabetes mellitus with hy perglycemia Discussion: Increase ozempic to 0.5mg sc weekly Accuchecks daily Follow Up: 4 weeks ICD-9 : 250.02 ICD-10 : E11.65 05/03/2019 Visit Diagnosis Plan: Chronic obstructiv e pulmonary disease with (acute) exacerbation Discussion: Prednisone taper SVNS with d uoneb q4hrs Doxycycline Notify if worsening ICD-9 : 491.21 ICD-10 : J44.1 05/03/2019 Appointment: Vika Renteria WPtel: [address] [place], [place] [address] [place] FOLLOW UP 05/03/2019 Patient Education: prednisone- [employer] Coupon [id number] Completed 05/03/2019 Patient Education: doxycycline hyclate- [employer] Coupon [id number] Completed 05/03/2019 Patient Education: fluconazole- [employer] Coupon [id number] Completed 05/03/2019 Visit Diagnosis Plan: Type 2 [...] Vika Renteria WPtel: [facility] ACUTE ILLNESS 04/11/2019 Patient Education: Medrol (Aníbal)- [employer]imize[employer] Coupon [phone] https://www.ZenDoc/PathCentral/resources/getResource/61/61a067ne-w5k6-445u-pt Completed 04/11/2019 Visit Diagnosis Plan: Hypothyroidism, unspecified Disc ussion: Check TSH and Free T4 ICD-9 : 244.9 ICD-10 : E03.9 03/16/2019 Visit Diagnosis Plan: Abnormal weight gain Discussion: Stop phenteramine due to elevated BP Discussed possible saxenda trial ICD-9 : 783.1 ICD-10 : R63.5 03/16/2019 Appointment: Vika Renteria WPtel: [address] [place] [address] [place] FOLLOW UP 03/16/2019 Visit Diagnosis Plan: Abnormal weight gain Discussion: Trial of phenteramine for next month pending lab results ICD-9 : 783.1 ICD-10 : R63.5 02/13/2019 Visit Diagnosis Plan: Chronic obstructive pulmonary di sease, unspecified Discussion: Improved off cigarettes ICD-9 : 496 ICD-10 : J44.9 02/13/2019 Visit Diagnosis Plan: Other chronic pain Discussion: S table back on pain meds Follow Up: 1 months ICD-9 : 338.29 ICD-10 : G89.29 02/13/2019 Appointment: Vika Renteria WPtel: [address] [place], [place] [phone] [place] FOLLOW UP 02/13/2019 Visit Diagnosis Plan: Chronic pain syndrome Discussion : Stable on fentanyl and oxycodone ICD-9 : 338.4 ICD-10 : G89.4 01/25/2019 Visit Diagnosis Plan: Major depressive d isorder, recurrent severe without psychotic features Discussion: Will await lab results ICD-9 : 296.33 ICD-10 : F33.2 01/25/2019 Visit Diagnosis Plan: Edema, unspecified Discussion: I mproved with DC of xtampza ICD-9 : 782.3 ICD-10 : R60.9 01/25/2019 Appointment: Vika Renteria WPtel: [address] [place], [place] [phone] [place] FOLLOW UP 01/25/2019 Care Plan: METABOLIC PANEL TOTAL CA LOIN C : 99542-4 Pending 01/04/2019 Care Plan: US EXAM OF HEAD AND NECK LOIN C : 38067-0 Pending 01/04/2019 Visit Diagnosis Plan: Hypothyroidism, unspecified Disc ussion: Check TSH and free T4 ICD-9 : 244.9 ICD-10 : E03.9 01/03/2019 Visit Diagnosis Plan: Localized edema Discussion: Obta in ECHO results If ECHO normal then will DC Xtampza as swelling seemed to start after this change ICD-9 : 782.3 ICD-10 : R60.0 01/03/2019 Appointment: Vika Renteria WPtel: [address] [place] [address] [place] FOLLOW UP 01/03/2019 Visit Diagnosis Plan: [...] : R63.5 11/21/2018 Appointment: Vika Renteria WPtel: [address] [place], [place] [phone] [place] FOLLOW UP 11/21/2018 Visit Diagnosis Plan: Localized edema Discussion: Cont inue lasix and potassium Never got ECHO done and unable to reschedule due to missing appointments Did discusse possibility of Xtampza could be contributing to swelling Recheck at end of month ICD-9 : 782.3 ICD-10 : R60.0 10/27/2018 Appointment: Vika Renteria WPtel: [address] [place], [place] [phone] [place] FOLLOW UP 10/27/2018 Visit Diagnosis Plan: [...] ICD-10 : F43.23 09/27/2018 Appointment: Nakia Lakhani [address] [place], [place] [id number] [place] FOLLOW UP 09/27/2018 Visit Diagnosis Plan: [...] : G89.4 09/14/2018 Appointment: Vika Renteria WPtel: [address] [place], [place] [address] [place] FOLLOW UP 09/14/2018 Care Plan: X-RAY EXAM OF HIP LOINC : 247 62-7 Pending 09/14/2018 Visit Diagnosis Plan: Edema, unspecified Discussion: L asix and potassium Check stat lab--CBC, CMP, ESR, TSH, Free T4 To ER if worsening May need ECHO Follow Up: 1 weeks ICD-9 : 782.3 ICD-10 : R60.9 09/06/2018 Appointment: Vika Renteria WPtel: [address] [place], [place] [address] [place] FOLLOW UP 09/06/2018 Patient Education: Patient Medication Summary Completed 09/06/2018 Appointment: Vika Renetria WPtel: [address] [place], [place] [address] [place] CANCELED 08/31/2018 Visit Diagnosis Plan: Acute bronchitis, unspecified Di scussion: due to cliical s/s, patient start on zithromax and medrol pack. instructed patient to continue with humidified oxygen to assist with dry nares and to also spray saline up nares to assist with moisturizing. if no improvement or worsening, call clinic. ICD-9 : 466.0 ICD-10 : J20.9 08/16/2018 Visit Diagnosis Plan: Drug induced constipation Discus [...] ICD-9 : 728.85 ICD-10 : M62.838 08/16/2018 Appointment: Nakia Lakhani [address] [id number] [place] ACUTE ILLNESS 08/16/2018 Patient Education: Patient Medication Summary Completed 08/16/2018 Appointment: Vika Renteria WPtel: [address] [id number] [place] CANCELED 07/20/2018 Visit Diagnosis Plan: Chronic [...] past when they were seeing patients in [place] but patient reports she's unable to travel to [place] due to pain. discussed with patient about sending her to [place] for pain management and patient reported she [...] ICD-10 : G89.4 07/07/2018 Visit Diagnosis Plan: Drug induced constipation Discus marsha: samples of relistor given to patient with instructions on use. informed patient to call clinic if effective and will send out rx. however, also, instructed to call if ineffective and will give patient other medication options. ICD-9 : 564.09 ICD-10 : K59.03 07/07/2018 Visit Diagnosis Plan: Encounter for therapeutic drug l evel monitoring Discussion: urine drug screen obtained in office. ICD-9 : V58.83 ICD-10 : Z51.81 07/07/2018 Appointment: Nakia Lakhani [address] [place], [place] [address] MEDICATION REVIEW 07/07/2018 Patient Education: Patient Medication Summary Completed 07/07/2018 Visit Diagnosis Plan: Hypothyroidism, unspecified Disc ussion: Check updated thyroid lab ICD-9 : 244.9 ICD-10 : E03.9 05/31/2018 Visit Diagnosis Plan: Chronic obstructive pulmonary di sease, unspecified Discussion: Continue supplemental oxygen at 2.5L NC continuously as continues to have need for oxygen and to benefit from oxyegne use Continue symbicort at current dose and add back spiriva Follow Up: 3 months ICD-9 : 496 ICD-10 : J44.9 05/31/2018 Appointment: Vika Renteria WPtel: [address] [facility] [facility] 05/31/2018 Patient Education: Patient Medication Summary Completed 05/31/2018 Visit Diagnosis Plan: Chronic obstructiv e pulmonary disease with (acute) exacerbation Discussion: Prednisone and Doxycycline ICD-9 : 466.0 ICD-10 : J44.1 03/31/2018 Visit Diagnosis Plan: Other muscle spasm Discussion: U pdate fasting lab including electrolytes ICD-9 : 728.85 ICD-10 : M62.838 03/31/2018 Appointment: Vika Renteria WPtel: [address] [facility] FO[facility] 03/31/2018 Patient Education: Patient Medication Summary Completed 03/31/2018 Visit Plan: Supportive care. Rest, Fluid s, Tylenol/Motrin prn fever or bodyaches. Notify if worsening symptoms.New toothebrush in 5 days 01/26/2018 Visit NOS Plan: Plan Notes: Supportive care. Rest, Fluids... 01/26/2018 Visit Diagnosis Plan: Chronic pain syndrome Discussion : Stable on current meds Add orphenadrine Follow Up: 2 months ICD-9 : 338.4 ICD-10 : G89.4 01/26/2018 Visit Diagnosis Plan: Acute pharyngitis, unspecified D iscussion: Cefdinir and notify if worsening Follow Up: As needed ICD-9 : 462 ICD-10 : J02.9 01/26/2018 Appointment: Vika Renteria WPtel: [address] [place] [address] FOLLOW UP 01/26/2018 Patient Education: Patient Medication Summary Completed 01/26/2018 Appointment: Vika Renteria WPtel: [address] [place] [address] [place] FOLLOW UP 12/28/2017 Visit Diagnosis Plan: Chronic pain syndrome Discussion : Increase gabapentin to 300mg po TID Follow Up: 3 months ICD-9 : 338.4 ICD-10 : G89.4 10/26/2017 Visit Diagnosis Plan: Major depressive disorder, recur rent, unspecified Discussion: Patient feels like doing okay without abilify so will continue with fluoxetine at current dose and continue counseling ICD-9 : 296.30 ICD-10 : F33.9 10/26/2017 Appointment: Vika Renteria WPtel: [address] [place] [address] [place] FOLLOW UP 10/26/2017 Patient Education: Patient [...] Appointment: Vika Renteriatel: [facility]4 [facility] US FOLLOW UP 09/23/2017 Patient Education: Patient Medication Summary Completed 09/23/2017 Appointment: Vika Renteria WPtel: [facility] US RESCHEDULED 09/14/2017 Visit Diagnosis Plan: Acute [...] : F17.209 08/12/2017 Appointment: Vika Renteria WPtel: [address] [place], [place] [phone] [place] FOLLOW UP 08/12/2017 Patient Education: Patient Medication Summary Completed 08/12/2017 Visit Diagnosis Plan: Other dystonia Discussion: Decre ase gabapentin to 400mg q HS for 1 week then stop to see if jerking muscle movements resolve ICD-9 : 781.0 ICD-10 : G24.8 07/06/2017 Visit Diagnosis Plan: Major depressive disorder, recur rent, unspecified Discussion: Continue abilify at 2mg daily Follow Up: 1 months ICD-9 : 296.30 ICD-10 : F33.9 07/06/2017 Appointment: Vika Renteria WPtel:[phone] [address] [facility] [phone] LM ~sp FOLLOW UP 07/06/2017 Patient Education: [...] F17.209 06/02/2017 Appointment: Vika Renteria WPtel: [address] [facility] 05/31 Confirmed~sl FOLLOW UP 06/02/2017 Patient Education: Patient Medication Summary Completed 06/02/2017 Visit Diagnosis Plan: Other dystonia Discussion: Decre ase gabapentin to 400mg BID Follow Up: 1 months ICD-9 : 781.0 ICD-10 : G24.8 04/29/2017 Visit Diagnosis Plan: Pain in left shoulder Discussion : Left posterior shoulder capsule injection ICD-9 : 719.41 ICD-10 : M25.512 04/29/2017 Visit Diagnosis Plan: Nicotine dependenc e, unspecified, with unspecified nicotine-induced disorders Discussion: Discussed Chantix and quitti ng smoking ICD-9 : 305.1 ICD-10 : F17.209 04/29/2017 Appointment: Vika Retneria WPtel: [address] [facility] 04/28 confirmed`sl FOLLOW UP 04/29/2017 Patient Education: [...] : F17.209 02/23/2017 Appointment: Vika Renteria WPtel: [address] [place] [address] 02/23 confirmed~sl Consult 02/23/2017 Patient Education: Patient [...] ICD-10 : T21.01XA 02/02/2017 Appointment: Sarah Weeks [address] [place] [address] ACUTE ILLNESS 02/02/2017 Patient Education: Patient Medication [...] : G89.4 01/20/2017 Appointment: Vika Renteria WPtel: [address] [place] [address] 01/19 lm ~sl 01/20 lm`sl FOLLOW UP 01/20/2017 Patient Education: Patient Medication Summary Completed 01/20/2017 Appointment: Vika Renteria WPtel: [address] [place], [place] [phone] FOLLOW UP 12/02/2016 Patient Education: Patient Medication [...] Recheck tomorrow 12/01/2016 Appointment: Vika Renteria WPtel: [address] [place], [place] [phone] 11/30 confirmed ~sl FOLLOW UP 12/01/2016 Patient Education: Patient Medication Summary Completed 12/01/2016 Visit Plan: Patient states is doing prot ein shakes but states can't eat due to nerves/stress Still seeing counselor Will proceed with EGD/Colonoscopy Add abilify 2mg daily 10/27/2016 Appointment: Vika Renteria WPtel: [address] [place], [place] [phone] 10/26 lm~sl FOLLOW UP 10/27/2016 Patient Education: Patient Medication Summary Completed 10/27/2016 Appointment: Vika Renteria WPtel: [address] [place], [place] [phone] [place] CANCELED 10/14/2016 Appointment: Vika Renteria WPtel: [address] [place], [place] [phone] 10/08 confirmed~sl 10/12 reschedule do to family issues ~sl RESCHEDULED 10/12/2016 Visit Plan: DC Symbicort and start pulmi niki BID in nebulizer Add Brovana BID in nebulizer Use albuterol with ipratropium q4hrs prn in nebulizer Retry Juni Will repeat CT scan of chest in 1month Recheck 1month 09/09/2016 Appointment: Vika Renteria WPtel: [address] [place], [place] [phone] 09/08 confirmed~sl FOLLOW UP 09/09/2016 Patient Education: [...] Completed 07/09/2016 Referral: Kyle Billings WPtel: [phone] [facility] Referral Appointment Confirmed 05/28/2016 Referral: Kyle Billings WPtel: [phone] [facility] [place] Referral Appointment Confirmed 05/27/2016 Visit Plan: Referral to Dr Billings for furt her evaluation and treatment of growth to labia Appt made for patient - 6/7 @ 3:30 05/21/2016 Appointment: Sarah Weeks [address] [facility] ACUTE ILLNESS 05/21/2016 Patient Education: Patient Medication Summary Completed 05/21/2016 Care Plan: Referral Order SNOMED-CT : 30 [id number] Pending 05/21/2016 Appointment: Vika Renteria WPtel: [address] [facility] US TB Test read 04/24/2016 Patient Education: Patient Medication Summary Completed 04/24/2016 Appointment: Vika Renteria WPtel: [phone] [facility] US TB Test 04/21/2016 Patient Education: Patient Medication Summary Completed 04/21/2016 Patient Education: Patient Medication Summary Completed 03/31/2016 Care Plan: CT CHEST SPINE W/O & W/DYE LO INC : 93460-0 Pending 03/31/2016 Visit Plan: Has been seeing [...] Vika Renteria WPtel: [facility] 01/21 lm-SP 01/22 lm-SP FOLLOW [...] eat properly 12/03/2015 Appointment: Vika Renteria WPtel: [address] [place] [address] 12/02/15 appt confirmed cn ACUTE ILLNESS 12/03 Patient Education: Patient Medication Summary Completed 12/03/2015 Appointment: Vika Renteria WPtel: [address] [place] [address] [facility] 11/07/2015 Patient Education: Patient Medication Summary Completed 11/07/2015 Visit Plan: Continue Wellbutrin at 300mg daily Zithromax and Prednisone taper Continue SVNs with albuterol Q4hrs and q2hrs prn Check CMP, HbA1C Smoking Cessation 09/10/2015 Appointment: Vika Renteria WPtel: [address] [place], [place] [phone] 09/09 lm~sl...09/10 lm~lb confirmed ~sl FOLLOW U P 09/10/2015 Patient Education: Patient Medication Summary Completed 09/10/2015 Visit Plan: Increase Wellbutrin XL to 30 0mg q AM Recheck 5weeks 08/06/2015 Appointment: Vika Renteria WPtel: [address] [place] [address] 08/05/15 lm..08/06/15 appt confirmed cn FOLLOW UP 08/06/2015 Patient Education: Patient Medication Summary Completed 08/06/2015 Visit Plan: Stress Reducers Continue flu oxetine Add Wellbutrin XL 150mg q AM Recheck 1mo Doxycycline and prednisone Smoking cessation 07/18/2015 Appointment: Vika Renteria WPtel: [address] [place] [address] 07/16 left message-lb FOLLOW UP 07/18/2015 Patient Education: Patient Medication Summary Completed 07/18/2015 Visit Plan: Stop pravastatin Onglyza 5mg daily Patient states can't do epidurals unless does PT 04/10/2015 Appointment: Vika Renteria WPtel: [address] [place] [address] [place] 04/02/15 vm cn 04/02/15-Alexandra rescheduled appt [...] respiratory drive 03/05/2015 Appointment: Vika Renteria WPtel: [address] [place] [address] 03/04 FOLLOW UP 03/05/2015 Patient Education: Patient Medication Summary Completed 03/05/2015 Visit Plan: Long discussion about pain m edications and knocking out respiratory drive Stop aspirin Can change oxycodone to 20mg po QID with next refill 01/30/2015 Appointment: Vika Renteria WPtel: [address] [place] [address] FOLLOW UP 01/30/2015 Patient Education: Patient Medication Summary Completed 01/30/2015 Referral: Israel Dodson WPtel: 1 [facility] [place] Referral Initiated 01/24/2015 Visit Plan: Discussed no more then 6 oxy codone a day Can restart premarin at lower dose 0.45mg daily Hold on metformin No smoking Finished all antibiotics and prednisone this AM Can go back to neurontin at 600mg po BID Try to stick with zyrtec at just once daily 10mg 01/02/2015 Appointment: Vika Renteria WPtel: [address] [place] [address] Follow Up 01/02/2015 Appointment: Vika Renteria WPtel: [address] [place] [address] Follow Up 01/02/2015 Patient Education: Patient Medication Summary Completed 01/02/2015 Patient Education: Premarin Orals - 18+ - No MA NE Completed 01/02/2015 Appointment: Vika Renteria WPtel: [address] [place] [address] ACUTE ILLNESS 12/19/2014 Visit Plan: Continue spiriva Add Levaqui n Check alpha 1 antitrypsin defeciency 10/03/2014 Appointment: Vika Renteria WPtel: [address] [place] [address] 09/21 voicemail 09/24/14: rescheduled for 10/03 @ 3:15-LB 10/03/14 FOLLOW UP 10/03/2014 Patient Education: Patient Medication Summary Completed 10/03/2014 Appointment: Vika Renteria WPtel: [address] [place] [address] 08/24 ACUTE ILLNESS 08/27/2014 Patient Education: Patient Medication Summary Completed 08/27/2014 Care Plan: CHEST X-RAY 2VW FRONTAL&LATL LOINC : 68274-7 Ordered 08/27/2014 Visit Plan: Medrol Dose Pack Omnicef Go back Turdoza Continue SVNS with albuterol Smoking Cessation 07/03/2014 Appointment: Vika Renteria WPtel: [address] [place] [address] FOLLOW UP 07/03/2014 Patient Education: Patient Medication Summary Completed 07/03/2014 Appointment: Vika Renteria WPtel: [address] [place], [place] [phone] 05/08 05/09-Julia cancelled appt/will cathy roberta. Taking pt's dog to vet for emergency appt-LB FOLLOW UP 05/09/2014 Visit Plan: Start Tudorza 1p BID Start S VNs with albuterol at least TID to QID 04/11/2014 Appointment: Vika Renteria WPtel: [address] [place] [address] 04/03 04/04 rescheduled by patient's daughter 04/10 FOLLOW UP 04/11/2014 Patient Education: Patient Medication Summary Completed 04/11/2014 Visit Plan: Smoking Cessation DC spiriva --pt feels makes her worse Continue current meds 03/07/2014 Appointment: Vika Renteria WPtel: [address] [place], [place] [phone] 02/28 03/06 FOLLOW UP 03/07/2014 Patient Education: Patient Medication Summary Completed 03/07/2014 Visit Plan: Finishes antibiotics today 1 more week of Zithromax and Diflucan 01/30/2014 Appointment: Vika Renteria WPtel: [address] [place], [place] [phone] 01/29 FOLLOW UP 01/30/2014 Patient Education: Patient Medication Summary Completed 01/30/2014 Visit Plan: Finish abx, prednisone Cont SVNs and oxygen Recheck 2wks unless worsening 01/18/2014 Appointment: Vika Renteria WPtel: [address] [place], [place] [phone] FOLLOW UP 01/18/2014 Patient Education: Patient Medication Summary Completed 01/18/2014 Visit Plan: Omnicef and Zitrhomax and Pr ednisone and SVNs with albuterol q4hrs Pt using O2 at 3L at home 01/16/2014 Appointment: Vika Renteria WPtel: [address] [place], [place] [phone] ACUTE ILLNESS 01/16/2014 Patient Education: Patient Medication Summary Completed 01/16/2014 Visit Plan: Proceed with PT for shoulder PT for strengthening Omnicef for 10 days Smoking Cessation 12/12/2013 Appointment: Vika Renteria WPtel: [address] [place], [place] [phone] FOLLOW UP 12/12/2013 Patient Education: Patient Medication Summary Completed 12/12/2013 Visit Plan: Injection as above Increase Robaxin to 2 po TID for next month 11/07/2013 Appointment: Vika Renteria WPtel: [address] [place] [address] FOLLOW UP 11/07/2013 Patient Education: Patient Medication Summary Completed 11/07/2013 Visit Plan: Change soma to Robaxin 750mg 2 po TID prn spasm Continue current meds To HD for flu shot 10/10/2013 Appointment: Vika Renteria WPtel: [address] [place] [address] FOLLOW UP 10/10/2013 Patient Education: Patient Medication Summary Completed 10/10/2013 Visit Plan: Injection to joint as above Rec counselor Call in 2wks on how shoulder doing 08/08/2013 Appointment: Vika Renteria WPtel: [address] [place], [place] [phone] 08/07 FOLLOW UP 08/08/2013 Patient Education: Patient Medication Summary Completed 08/08/2013 Visit Plan: Supportive care. Rest, Fluid s, Tylenol/Motrin prn fever or bodyaches. Notify if worsening symptoms. New toothebrush in 5 days 07/26/2013 Appointment: Vika Renteria WPtel: [address] [place] [address] FOLLOW UP 07/26/2013 Patient Education: Patient Medication Summary Completed 07/26/2013 Visit Plan: Doxycycline and Prednisone S moking Cessation Notify if worsening May need shoulder injection 06/28/2013 Appointment: Vika Renteriatel: [address] [place], [place] [phone] FOLLOW UP 06/28/2013 Patient Education: Patient Medication Summary Completed 06/28/2013 Visit Plan: Prednisone for shoulder Cont inue duoderm/wound care May need PT for shoulder 05/31/2013 Appointment: Vika Renteria WPtel: [address] [place], [place] [phone] 05/30 FOLLOW UP 05/31/2013 Patient Education: Patient Medication Summary Completed 05/31/2013 Visit Plan: Levaquin and start woundcare 05/03/2013 Appointment: Vika Renteria WPtel: [address] [place], [place] [phone] ACUTE ILLNESS 05/03/2013 Patient Education: Patient Medication Summary Completed 05/03/2013 Visit Plan: PT for strengthening No ciga rettes Continue current meds 04/25/2013 Appointment: Vika Renteria WPtel: [address] [place], [place] [phone] 04/24 left message Hospital Follow Up 04/25/2013 Patient Education: Patient Medication Summary Completed 04/25/2013 Appointment: Vika Renteria WPtel: [address] [place], [place] [phone] FOLLOW UP 04/13/2013 Visit Plan: Check CT head, lungs, abdome n/pelvis Continue duragesic patch with oxycodone for breakthrough pain Fwup pending CT results 03/08/2013 Appointment: Vika Renteria WPtel: [address] [place], [place] [phone] patient daughter called in to reschedule due to med issues...02/28 patient daughter rescheduled due to weather 03/01 03/07 left message FOLLOW UP 03/08/2013 Patient Education: Patient Medication Summary Completed 03/08/2013 Visit Plan: Change MS Contin to Duragesi c Patch 100mcg q48hrs for pain with hydrocodone 10/325mg 1-2 po QID prn breakthrough pain 02/07/2013 Appointment: Vika Renteria WPtel: [address] [place], [place] [phone] 02/06 left message FOLLOW UP 02/07/2013 Patient Education: Patient Medication Summary Completed 02/07/2013 Visit Plan: Discussed that some [employer] products are petroleum free If continues with weight loss will proceed with CT scan of chest--pt refuses at this time Smoking Cessation 01/10/2013 Appointment: Vika Renteria WPtel: [address] [place], [place] [phone] 01/09 FOLLOW UP 01/10/2013 Patient Education: Patient Medication Summary Completed 01/10/2013 Appointment: Vika Renteria WPtel: [address] [place] [address] FOLLOW UP 12/27/2012 Appointment: Vika Renteria WPtel: [address] [place] [address] 08/29/12: Patient called and rescheduled 1:30pm appt for 08/30/12 - LB..09/28 no answer FOLLOW UP 09/28/2012 Patient Education: Patient Medication Summary Completed 09/28/2012 Visit Plan: Increase Topamax to 100mg q HS Pt has stopped smoking cold turkey Zithromax for 1wk 06/28/2012 Appointment: Vika Renteria WPtel: [address] [place] [address] voicemail FOLLOW UP 06/28/2012 Patient Education: Patient Medication Summary Completed 06/28/2012 Visit Plan: Topamax from Migraine preven tion Smoking cessation 05/03/2012 Appointment: Vika Renteria WPtel: [address] [place] [address] 04/26/12: appt rescheduled from 04/26/12 by daughter [...] smoking cessation 03/01/2012 Appointment: Vika Renteria WPtel: [address] [place], [place] [phone] FOLLOW UP 03/01/2012 Patient Education: Patient Medication Summary Completed 03/01/2012 Visit Plan: Overnight pulse ox Smoking C essation Add Daliresp 500mg daily Hold Metformin 01/26/2012 Appointment: Vika Renteria WPtel: [address] [place] [address] FOLLOW UP 01/26/2012 Patient Education: Patient Medication Summary Completed 01/26/2012 Visit Plan: Discussed methotrexate trial , but do to chronic bronchitis pt wants to hold Smoking cessation Check CMP, CBC, TSH, Free T4, Lipids. ESR, ds DNA, JOVANNY Check EGD 11/03/2011 Appointment: Vika Renteria WPtel: [address] [place] [address] FOLLOW UP 11/03/2011 Patient Education: Patient Medication Summary Completed 11/03/2011 Appointment: Vika Renteriatel: [address] [place] [address] 08/10/2011 Patient Education: Patient Medication Summary Completed 08/10/2011 Visit Plan: Supportive care. Rest, Fluid s, Tylenol/Motrin prn fever or bodyaches. Notify if worsening symptoms. Medrol Dose Pack Smoking Cessation and recommend get rid of cat Add Reglan for stomach 07/15/2011 Appointment: Vika Renteriatel: [address] [place] [address] ACUTE ILLNESS 07/15/2011 Patient Education: Patient Medication Summary Completed 07/15/2011 Appointment: Vika Renteriatel: [address] [place] [address] FOLLOW UP 04/02/2011 Visit Plan: SVN with Albuterol 0.083% Q4 hrs and Q2hrs prn. Cont smoking Cessation 03/19/2011 Appointment: Vika Renteria WPtel: [address] [place] [address] ACUTE ILLNESS 03/19/2011 Patient Education: Patient Medication Summary Completed 03/19/2011 Visit Plan: Repeat Biaxin XL Cont curren t meds Repeat Chantix 01/28/2011 Appointment: Vika Renteria WPtel: [address] [place], [place] [phone] FOLLOW UP 01/28/2011 Patient Education: Patient Medication Summary Completed 01/28/2011 Patient Education: Chantix Unbranded Comp leted 01/28/2011 Appointment: Vika Renteria WPtel: [address] [place], [place] [phone] FOLLOW UP 01/14/2011 Visit Plan: Finish abx Diflucan for vagi nitis Premarin vaginal cream Smoking cessation 12/17/2010 Appointment: Vika Renteria WPtel: [address] [place], [place] [phone] [place] [address] Follow Up 12/17/2010 Patient Education: Patient Medication Summary Completed 12/17/2010 Appointment: Vika Renteria WPtel: [address] [place], [place] [phone] FOLLOW UP 11/06/2010 Visit Plan: Start PT Use SVNs every 4hrs Smoking Cessation Change MS Contin to 200mg q 12hrs 2010 Appointment: Vika Renteria WPtel: [address] [place], [place] [address] FOLLOW UP 2010 Patient Education: Patient Medication Summary Completed 2010 Visit Plan: Prednisone taper for pain an d lungs 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 Increase fluoxetine to 60mg QD for acute stress reaction 10/02/2010 Appointment: Vika Renteria WPtel: [address] [place], [place] [phone] FOLLOW UP 10/02/2010 Patient Education: Patient Medication Summary Completed 10/02/2010 Visit Plan: Check CT Head, Cervical, Tho racic, and Lumbar Spine Cont current meds Bactrim for left toe 09/24/2010 Appointment: Vika Renteria WPtel: [address] [place], [place] [phone] CHECK UP 09/24/2010 Patient Education: Patient Medication Summary Completed 09/24/2010 Appointment: Vika Renteria WPtel: [address] [place] [address] FOLLOW UP 09/02/2010 Patient Education: Patient Medication Summary Completed 09/02/2010 Visit Plan: Return for 2nd epidural Obse rve right leg lesion Cont Symbicort and Spiriva 07/14/2010 Appointment: Vika Renteria WPtel: [address] [place] [address] FOLLOW UP 07/14/2010 Patient Education: Patient Medication Summary Completed 07/14/2010 Appointment: Vika Renteria WPtel: [address] [place] [address] FOLLOW UP 05/27/2010 Appointment: Vika Renteria WPtel: [address] [place] [address] FOLLOW UP 05/14/2010 Visit Plan: SVN with Albuterol 0.083% Q4 hrs and Q2hrs prn. Restart Spiriva Smoking Cessation 05/07/2010 Appointment: Vika Renteria WPtel: [address] [place] [address] FOLLOW UP 05/07/2010 Patient Education: Patient Medication Summary Completed 05/07/2010 Appointment: Vika Renteria WPtel: [address] [place] [address] ACUTE ILLNESS 04/08/2010 Patient Education: Patient Medication Summary Completed 04/08/2010 Referral: Kyle Billings WPtel: [phone] [address] [place] Referral Completed Referral: Jaylan Matute WPtel: [address] [facility] [address] [id number] [place] Referral Initiated Referral: Kyle Billings WPtel: [address] [address] [place] Referral Appointment Requested Instructions Comment . [...] prn breakthrough pain . Discussed that some [employer] produ[employer] ts are petroleum free If [...]
--- OUTSIDE RECORDS SUMMARY | 2020-04-24 21:52 | XMS REPORT | CCD ---
Author Author Yana Renteria D.O. 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 Role Phone Vika Renteria D.O., PP Unavailable CCM Unavailable Summary Purpose Interface Exchange Insurance Providers Payer name Policy type / Coverage type Covered constitution party ID Effective Begin Date Effective End Date [employer] [facility] Medicaid [id number] 2018 U nknown Family History Family History data not found Social History Social History Element Codes Description Effective Dates Marital status Unknown 06/28/[address]: [id number] Currently smokes tobacco 05/2013 Allergies, Adverse Reactions, [...] Fill Instructions gabapentin 300 mg capsule RxNorm: 809289 TAKE ONE CAPSULE BY [facility] TWICE A DAY 04/17/2020 No Stop Date Active MS Contin 200 mg tablet,extended release RxNorm: 504957 1 Tablet(s) Oral two times a day 04/16/2020 05/16/2020 Active cyclobenzaprine 10 mg tablet RxNorm: 428478 TAKE ONE TA BLET BY MOUTH THREE TIMES A DAY NEEDED 04/11/2020 No Stop Date Active potassium chloride ER 20 mEq tablet,extended release RxNorm: 626064 TAKE ONE TABLET BY MOUTH DAILY 04/11/2020 No Stop Date Active ProAir HFA 90 mcg/actuation aerosol inhaler RxNorm: 534237 INHALE ONE PUFF BY MOUTH EVERY 4 HOURS FOR WHEEZING OR FOR SHORTNESS OF BREATH 04/11/2020 No Stop Date Active Daliresp 500 mcg tablet RxNorm: 1984164 TAKE ONE TABLET BY MOUTH DAILY 04/11/2020 No Stop Date Active hydroxyzine HCl 50 mg tablet RxNorm: 351435 TAKE ONE TA BLET BY MOUTH TWICE A DAY WITH MORPHINE. *REPLACES BENADRYL* 04/11/2020 No Stop Date Active fluoxetine 20 mg capsule RxNorm: 236981 1 Capsule(s) Oral QD 201905/10/2020 Active fluoxetine 20 mg capsule RxNorm: 539310 1 Capsule(s) Oral QD 201904/09/2020 Inactive levothyroxine 25 mcg tablet RxNorm: 076388 TAKE ONE TAB LET BY MOUTH EVERY MORNING 04/09/2020 No Stop Date Active metformin 500 mg tablet RxNorm: 967390 1 Tablet(s) Oral QD 04/09/2007/08/2020 Active MS Contin 200 mg tablet,extended release RxNorm: 993352 1 Tablet(s) Oral two times a day 03/19/2020 04/15/2020 Inactive Relistor 150 mg tablet RxNorm: 4981208 TAKE THREE TABLETS BY [facility]ENO[facility] DAILY 03/13/2020 No Stop Date Active furosemide 40 mg tablet RxNorm: 409520 TAKE ONE TABLET BY MOUTH EVERY MORNING 03/13/2020 No Stop Date Active cyclobenzaprine 10 mg tablet RxNorm: 853288 TAKE ONE TA BLET BY MOUTH THREE TIMES A DAY NEEDED 03/13/2020 04/10/2020 Inactive prednisone 1 mg tablet RxNorm: 971840 1 Tablet(s) Oral two times a day to take with hydroxyzine 03/12/2020 No Stop Date Active hydroxyzine HCl 50 mg tablet RxNorm: 228944 1 Tablet(s) Oral two times a day to take with morphine--replaces benadryl 03/12/2020 04/10/2020 Inactive prednisolone 5 mg tablet RxNorm: 105202 1 Tablet(s) Oral two ti mes a day 02/22/2020 03/23/2020 Inactive prednisolone 5 mg tablet RxNorm: 502260 1 Tablet(s) Oral two ti mes a day 02/22/2020 02/21/2020 Inactive Symbicort 160 mcg-4.5 mcg/actuation HFA aerosol inhaler RxNo rm: 7889747 INHALE TWO PUFFS BY MOUTH TWICE A DAY 02/19/2020 No Stop Date Active Daliresp 500 mcg tablet RxNorm: 1091403 TAKE ONE TABLET BY MOUTH DAILY 02/19/2020 No Stop Date Active prednisone 20 mg tablet RxNorm: 857016 1 Tablet(s) Oral two yumi es a day 02/13/2020 02/20/2020 Inactive oxycodone 30 mg tablet RxNorm: 9791568 1 Tablet(s) Oral four times a day replaces MS Contin 02/13/2020 02/22/2020 Inactive levothyroxine 25 mcg tablet RxNorm: 151267 TAKE ONE TAB LET BY MOUTH EVERY MORNING 02/09/2020 04/08/2020 Inactive MS Contin 200 mg tablet,extended release RxNorm: 004662 1 Tablet(s) Oral two times a day 02/01/2020 03/01/2020 Inactive Premarin 0.45 mg tablet RxNorm: 264351 TAKE ONE TABLET BY MOUTH DAILY 01/31/2020 No Stop Date Active cyclobenzaprine 10 mg tablet RxNorm: 972496 TAKE ONE TA BLET BY MOUTH THREE TIMES A DAY NEEDED 01/31/2020 03/12/2020 Inactive metformin 500 mg tablet RxNorm: 368127 1 Tablet(s) Oral QD 01/31/2004/08/2020 Inactive gabapentin 300 mg capsule RxNorm: 545659 TAKE ONE CAPSULE BY [facility] TWICE A DAY 01/16/2020 04/16/2020 Inactive potassium chloride ER 20 mEq tablet,extended release RxNorm: 093503 TAKE ONE TABLET BY MOUTH DAILY 01/08/2020 07/05/2020 Active ProAir HFA 90 mcg/actuation aerosol inhaler RxNorm: 785621 INHALE ONE PUFF BY MOUTH EVERY 4 HOURS FOR WHEEZING OR FOR SHORTNESS OF BREATH 01/04/2020 04/10/2020 Inactive metformin 500 mg tablet RxNorm: 081206 1 Tablet(s) Oral QD 01/04/2004/09/2020 Inactive MS Contin 200 mg tablet,extended release RxNorm: 644922 1 Tablet(s) Oral two times a day 01/02/2020 01/31/2020 Inactive Pulmicort 1 mg/2 mL suspension for nebulization RxNorm: 6168 19 USE ONE VIAL VIA NEBULIZER BY MOUTH TWICE A DAY 12/21/2019 No Stop Date Active furosemide 40 mg tablet RxNorm: 335674 TAKE ONE TABLET BY MOUTH EVERY MORNING NEEDED 12/20/2019 03/12/2020 Inactive levothyroxine 25 mcg tablet RxNorm: 545425 TAKE ONE TAB LET BY MOUTH EVERY MORNING 12/20/2019 02/08/2020 Inactive MS Contin 200 mg tablet,extended release RxNorm: 746033 1 Tablet(s) Oral two times a day 12/05/2019 01/01/2020 Inactive Medrol (Aníbal) 4 mg tablets in a dose pack RxNorm: 109159 6 Tablet(s) Oral QD --then as directed 11/30/2019 12/05/2019 Inactive MS Contin 200 mg tablet,extended release RxNorm: 339608 1 Tablet(s) Oral two times a day 11/29/2019 12/04/2019 Inactive cyclobenzaprine 10 mg tablet RxNorm: 531244 TAKE ONE TA BLET BY MOUTH THREE TIMES A DAY NEEDED 11/21/2019 01/30/2020 Inactive MS Contin 200 mg tablet,extended release RxNorm: 274815 1 Tablet(s) Oral two times a day replaces 100mg dose 11/03/2019 11/02/2019 Inactive MS Contin 200 mg tablet,extended release RxNorm: 250183 1 Tablet(s) Oral two times a day replaces 100mg dose 11/03/2019 11/29/2019 Inactive ferrous sulfate 325 mg (65 mg iron) tablet RxNorm: 686787 1 Tab let(s) Oral QD 10/30/2019 No Stop Date Active MS Contin 100 mg tablet,extended release RxNorm: 167995 1 Table t(s) Oral QD 10/30/2019 10/29/2019 Inactive MS Contin 100 mg tablet,extended release RxNorm: 850265 1 Table t(s) Oral QD 10/30/2019 11/02/2019 Inactive pantoprazole 40 mg tablet,delayed release RxNorm: 680363 1 Tabl et(s) Oral QD 10/25/2019 No Stop Date Active Minipress 2 mg capsule RxNorm: 410341 1 Capsule(s) Oral QAM and 3 at bedtime 10/25/2019 No Stop Date Active Lancets, Super Thin RxNorm: 1 Unit Dose Miscellaneous QD 9 11/27/2020 Active Relistor 150 mg tablet RxNorm: 3460404 TAKE THREE TABLETS BY [facility]ENOIT TH DAILY 10/25/2019 03/12/2020 Inactive oxycodone 15 mg tablet RxNorm: 1398693 1 Tablet(s) Oral four times a day as needed for pain 10/25/2019 11/28/2019 Inactive metformin 500 mg tablet RxNorm: 077745 1 Tablet(s) Oral QD 10/25/20 19 01/03/2020 Inactive levothyroxine 25 mcg tablet RxNorm: 973333 1 Tablet(s) Oral QAM 02/201912/19/2019 Inactive levothyroxine 25 mcg tablet RxNorm: 666569 1 Tablet(s) Oral QAM 02/201910/24/2019 Inactive MS Contin 100 mg tablet,extended release RxNorm: 177730 1 Tablet(s) Oral two times a day replaces fentanyl 10/25/2019 10/25/2019 Inactive Cymbalta 60 mg capsule,delayed release RxNorm: 376528 1 Capsule (s) Oral QAM 10/25/2019 04/09/2020 Inactive Cymbalta 30 mg capsule,delayed release RxNorm: 291364 1 Capsule (s) Oral QAM 10/25/2019 04/09/2020 Inactive Premarin 0.45 mg tablet RxNorm: 554890 TAKE ONE TABLET BY MOUTH DAILY 10/24/2019 01/30/2020 Inactive Duragesic 100 mcg/hr transdermal patch RxNorm: 620356 2 Application TD Q48H for pain 10/18/2019 10/24/2019 Inactive gabapentin 300 mg capsule RxNorm: 644160 TAKE ONE CAPSULE BY MO UTH TWICE A DAY 10/16/2019 01/15/2020 Inactive cyclobenzaprine 10 mg tablet RxNorm: 843755 TAKE ONE TA BLET BY MOUTH THREE TIMES A DAY NEEDED 09/27/2019 11/20/2019 Inactive Relistor 150 mg tablet RxNorm: 4552785 TAKE THREE TABLETS BY [facility]ENO[facility] TH DAILY 09/25/2019 10/24/2019 Inactive ProAir HFA 90 mcg/actuation aerosol inhaler RxNorm: 499456 INHALE ONE PUFF BY MOUTH EVERY 4 HOURS FOR WHEEZING OR FOR SHORTNESS OF BREATH 09/25/2019 01/03/2020 Inactive furosemide 40 mg tablet RxNorm: 977095 1 Tablet(s) Oral QAM as needed 09/25/2019 09/25/2019 Inactive oxycodone 15 mg tablet RxNorm: 8913381 1 Tablet(s) PO QID as nee ded for pain 09/21/2019 10/24/2019 Inactive Duragesic 100 mcg/hr transdermal patch RxNorm: 887883 2 Application TD Q48H for pain 09/19/2019 10/17/2019 Inactive Daliresp 500 mcg tablet RxNorm: 1996476 1 Tablet(s) Oral QD 019 02/18/2020 Inactive Relistor 150 mg tablet RxNorm: 2710043 TAKE THREE TABLETS BY [facility]ENOIT TH DAILY 07/25/2019 07/30/2019 Inactive cyclobenzaprine 10 mg tablet RxNorm: 879417 TAKE ONE TA BLET BY MOUTH THREE TIMES A DAY NEEDED 07/25/2019 09/22/2019 Inactive potassium chloride ER 20 mEq tablet,extended release RxNorm: 677551 TAKE ONE TABLET BY MOUTH DAILY 07/25/2019 01/07/2020 Inactive fluoxetine 40 mg capsule RxNorm: 607846 TAKE ONE CAPSULE BY [facility]ENO[facility] TH EVERY MORNING 07/11/2019 10/24/2019 Inactive Medrol (Aníbal) 4 mg tablets in a dose pack RxNorm: 098410 6 Tablet(s) PO QD --then as directed 07/10/2019 07/15/2019 Inactive omeprazole 40 mg capsule,delayed release RxNorm: 885245 1 Capsule(s) PO QD for stomach TAKE ONE CAPSULE BY MOUTH DAILY 07/10/2019 10/24/2019 Inactive Augmentin 875 mg-125 mg tablet RxNorm: 067075 1 Tablet(s) PO BID 07/16/2019 Inactive Trulicity 0.75 mg/0.5 mL subcutaneous pen injector RxNorm: 1 144109 0.75 Milliliter(s) SQ weekly 07/05/2019 10/24/2019 Inactive Compazine 10 mg tablet RxNorm: 741516 TAKE ONE TABLET B Y MOUTH FOUR TIMES A DAY NEEDED FOR NAUSEA 06/20/2019 07/19/2019 Inactive ProAir HFA 90 mcg/actuation aerosol inhaler RxNorm: 921427 INHALE ONE PUFF BY MOUTH EVERY 4 HOURS FOR WHEEZING OR FOR SHORTNESS OF BREATH 06/20/2019 06/23/2019 Inactive Daliresp 500 mcg tablet RxNorm: 2691444 TAKE ONE TABLET BY MOUTH DAILY 06/12/2019 09/10/2019 Inactive ogpelchy-mtvuuthwl-cipuyvmmj 3.5 mg/mL-10,000 unit/mL- 1 % ear solution RxNorm: 514510 4 Drop(s) otic (ear) TID to left ear 06/05/2019 10/24/2019 Inac tive furosemide 40 mg tablet RxNorm: 359926 TAKE ONE TABLET BY MOUTH EVERY MORNING 05/26/2019 07/09/2019 Inactive Duragesic 100 mcg/hr transdermal patch RxNorm: 387849 2 Application TD Q48H for pain 05/16/2019 06/14/2019 Inactive oxycodone 15 mg tablet RxNorm: 6859705 1 Tablet(s) PO QID as nee ded for pain 05/10/2019 09/20/2019 Inactive doxycycline hyclate 100 mg capsule RxNorm: 1837664 1 Capsule(s) PO BID 05/03/2019 05/12/2019 Inactive prednisone 20 mg tablet RxNorm: 564640 1 Tablet(s) PO T ID for 3 days then 1 po BID for 3 days then one daily for 3 days 05/03/2019 07/11/2019 Inactiv e Ozempic 0.25 mg or 0.5 mg (2 mg/1.5 mL) subcutaneous p en injector RxNorm: 8358360 0.5 Milligram(s) SQ QW 05/03/2019 07/09/2019 Inactive fluconazole 100 mg tablet RxNorm: 843226 1 Tablet(s) PO QD 05/03/2005/07/2019 Inactive Premarin 0.45 mg tablet RxNorm: 866544 TAKE ONE TABLET BY MOUTH DAILY 05/03/2019 10/23/2019 Inactive potassium chloride ER 20 mEq tablet,extended release RxNorm: 080195 1 Tablet(s) PO QD 04/27/2019 07/25/2019 Inactive potassium chloride ER 20 mEq tablet,extended release RxNorm: 927204 1 Tablet(s) PO QD 04/25/2019 04/26/2019 Inactive Compazine 10 mg tablet RxNorm: 424056 1 Tablet(s) PO QID as nee ded for nausea 04/25/2019 05/04/2019 Inactive ProAir HFA 90 mcg/actuation aerosol inhaler RxNorm: 082622 INHALE ONE PUFF BY MOUTH EVERY 4 HOURS FOR WHEEZING OR FOR SHORTNESS OF BREATH 04/12/2019 06/10/2019 Inactive Medrol (Aníbal) 4 mg tablets in a dose pack RxNorm: 308337 6 Tablet(s) PO QD --then as directed 04/11/2019 04/16/2019 Inactive Symbicort 160 mcg-4.5 mcg/actuation HFA aerosol inhaler RxNo rm: 9396089 2 Puff(s) INH BID 04/10/2019 10/06/2019 Inactive levothyroxine 50 mcg tablet RxNorm: 594301 1 Tablet(s) PO QD 201810/24/2019 Inactive gabapentin 300 mg capsule RxNorm: 424092 1 Capsule(s) PO BID 201810/02/2019 Inactive Symbicort 160 mcg-4.5 mcg/actuation HFA aerosol inhaler RxNo rm: 5019201 2 Puff(s) INH BID 04/06/2019 04/09/2019 Inactive oxycodone 15 mg tablet RxNorm: 1761523 1 Tablet(s) PO QID as nee ded for pain 04/05/2019 05/09/2019 Inactive levothyroxine 50 mcg tablet RxNorm: 540693 1 Tablet(s) PO QD 201804/09/2019 Inactive furosemide 40 mg tablet RxNorm: 936522 TAKE ONE TABLET BY MOUTH EVERY MORNING 03/21/2019 04/19/2019 Inactive levothyroxine 50 mcg tablet RxNorm: 774486 TAKE ONE TABLET BY M OUTH DAILY 03/21/2019 03/27/2019 Inactive Duragesic 100 mcg/hr transdermal patch RxNorm: 994266 2 Application TD Q48H for pain 03/13/2019 04/11/2019 Inactive oxycodone 15 mg tablet RxNorm: 5408039 1 Tablet(s) PO QID as nee ded for pain 03/06/2019 04/04/2019 Inactive Relistor 150 mg tablet RxNorm: 4542646 3 Tablet(s) PO QD 02/28/2019 0 05/28/2019 Inactive cyclobenzaprine 10 mg tablet RxNorm: 096024 1 Tablet(s) PO TID as needed 02/28/2019 05/28/2019 Inactive phentermine 37.5 mg tablet RxNorm: 885349 1 Tablet(s) PO QAM 201803/15/2019 Inactive Duragesic 100 mcg/hr transdermal patch RxNorm: 195287 2 Application TD Q48H for pain 02/09/2019 03/10/2019 Inactive Daliresp 500 mcg tablet RxNorm: 7598328 TAKE ONE TABLET BY MOUTH DAILY 01/31/2019 05/30/2019 Inactive Premarin 0.45 mg tablet RxNorm: 261192 1 Tablet(s) PO QD 01/31/2019 0 04/30/2019 Inactive fluoxetine 40 mg capsule RxNorm: 048533 Capsule(s) TAKE ONE CAPSULE BY MOUTH EVERY MORNING 01/31/2019 04/30/2019 Inactive levothyroxine 50 mcg tablet RxNorm: 350724 1 Tablet(s) PO QD 201804/10/2019 Inactive follow up in 3 weeks levothyroxine 50 mcg tablet RxNorm: 776936 1 Tablet(s) PO QD 201801/25/2019 Inactive follow up in 3 weeks potassium chloride ER 20 mEq tablet,extended release RxNorm: 219788 2 Tablet(s) PO BID 01/23/2019 01/08/2020 Inactive Synthroid 50 mcg tablet RxNorm: 598190 TAKE ONE TABLET BY MOUTH DAILY 01/16/2019 10/24/2019 Inactive potassium chloride ER 20 mEq tablet,extended release RxNorm: 308850 2 Tablet(s) PO BID 01/04/2019 01/22/2019 Inactive ProAir HFA 90 mcg/actuation aerosol inhaler RxNorm: 792980 INHALE ONE PUFF BY MOUTH EVERY 4 HOURS FOR WHEEZING OR SHORTNESS OF BREATH 01/04/201902/20 Inactive Request already responded to by other me ans (e.g. phone or fax) ProAir HFA 90 mcg/actuation aerosol inhaler RxNorm: 1371374 INHALE ONE PUFF BY MOUTH EVERY 4 HOURS FOR WHEEZING OR SHORTNESS OF BREATH 01/02/201912/23 Inactive gabapentin 300 mg capsule RxNorm: 072797 TAKE ONE CAPSULE BY MO UTH TWICE A DAY 12/30/2018 04/06/2019 Inactive furosemide 40 mg tablet RxNorm: 822145 1 Tablet(s) PO QAM 12/26/2018 02/23/2019 Inactive Compazine 10 mg tablet RxNorm: 731428 1 Tablet(s) PO QID as nee ded for nausea 12/07/2018 12/16/2018 Inactive metolazone 2.5 mg tablet RxNorm: 303884 TAKE ONE TABLET BY MOUT H EVERY MORNING 12/05/2018 01/03/2019 Inactive metformin ER 500 mg tablet,extended release 24 hr RxNorm: 86 0975 TAKE ONE TABLET BY MOUTH DAILY 12/05/2018 01/31/2020 Inactive Synthroid 50 mcg tablet RxNorm: 563367 1 Tablet(s) PO QD 11/25/2018 0 01/03/2019 Inactive DC any other synthroid strengths. Should be 50mcg only cyclobenzaprine 10 mg tablet RxNorm: 759196 TAKE ONE TA BLET BY MOUTH THREE TIMES A DAY NEEDED 11/09/2018 02/06/2019 Inactive metolazone 2.5 mg tablet RxNorm: 544571 1 Tablet(s) PO QAM repl aces 5mg dose 11/02/2018 12/01/2018 Inactive potassium chloride ER 20 mEq tablet,extended release RxNorm: 660190 2 Tablet(s) PO QD 2018 01/02/2019 Inactive Compazine 10 mg tablet RxNorm: 649189 1 Tablet(s) PO QID as nee ded for nausea 10/18/2018 12/07/2018 Inactive furosemide 40 mg tablet RxNorm: 827738 1 Tablet(s) PO QAM 10/12/2018 12/10/2018 Inactive ondansetron 8 mg disintegrating tablet RxNorm: 417921 1 Tablet(s) PO Q6H as needed 10/11/2018 10/17/2018 Inactive scopolamine 1 mg over 3 days transdermal patch RxNorm: 21313 2 1 Application TD behind ear. Take off after three days 10/11/2018 01/02/2019 Inactive furosemide 40 mg tablet RxNorm: 426234 1 Tablet(s) PO QAM 10/10/2018 12/26/2018 Inactive metolazone 5 mg tablet RxNorm: 220662 1 Tablet(s) PO QAM 10/06/2018 1 01/03/2018 Inactive metolazone 5 mg tablet RxNorm: 985551 1 Tablet(s) PO QAM 10/06/2018 1 12/05/2017 Inactive Xtampza ER 36 mg capsule sprinkle RxNorm: 2408278 1 Capsule(s) P O BID 10/05/2018 01/02/2019 Inactive Xtampza ER 36 mg capsule sprinkle RxNorm: 4758503 1 Capsule(s) P O BID 10/05/2018 02/12/2019 Inactive omeprazole 40 mg capsule,delayed release RxNorm: 696294 TAKE ONE CAPSULE BY MOUTH DAILY 10/03/2018 12/31/2018 Inactive Duragesic 100 mcg/hr transdermal patch RxNorm: 105133 2 Application TD Q48H for pain 09/30/2018 10/29/2018 Inactive Synthroid 50 mcg tablet RxNorm: 458018 1 Tablet(s) PO QD 09/29/2018 0 11/25/2018 Inactive DC any other synthroid strengths. Should be 50mcg only Synthroid 50 mcg tablet RxNorm: 845916 1 Tablet(s) PO QD 09/29/2018 1 11/28/2017 Inactive furosemide 40 mg tablet RxNorm: 578532 2 Tablet(s) PO Q AM for 1 week then every other day for 2 weeks 09/27/2018 10/12/2018 Inactive fluoxetine 40 mg capsule RxNorm: 492048 2 Capsule(s) PO QD 09/27/20 18 10/17/2018 Inactive potassium chloride ER 20 mEq tablet,extended release RxNorm: 956092 2 Tablet(s) PO QD for 1 week then every other day for 2 weeks 09/27/2018 2018 Inactive ProAir HFA 90 mcg/actuation aerosol inhaler RxNorm: 4345078 INHALE ONE PUFF BY MOUTH EVERY 4 HOURS FOR WHEEZING OR SHORTNESS OF BREATH 09/26/201811/23 Inactive Synthroid 75 mcg tablet RxNorm: 089833 1 Tablet(s) PO QD 09/09/2018 1 Inactive Synthroid 75 mcg tablet RxNorm: 571370 1 Tablet(s) PO QD 09/09/2018 1 11/28/2017 Inactive furosemide 40 mg tablet RxNorm: 185658 1 Tablet(s) PO QD 09/06/2018 1 Inactive potassium chloride ER 20 mEq tablet,extended release RxNorm: 646473 1 Tablet(s) PO QD 09/06/2018 09/19/2018 Inactive Duragesic 100 mcg/hr transdermal patch RxNorm: 966940 2 Application TD Q48H for pain 08/30/2018 09/28/2018 Inactive gabapentin 300 mg capsule RxNorm: 084378 TAKE ONE CAPSULE BY [facility] TWICE A DAY 08/23/2018 12/20/2018 Inactive Daliresp 500 mcg tablet RxNorm: 3919196 TAKE ONE TABLET BY MOUTH DAILY 08/23/2018 01/19/2019 Inactive Pulmicort 1 mg/2 mL suspension for nebulization RxNorm: 6168 19 USE ONE VIAL VIA NEBULIZER BY MOUTH TWICE A DAY 08/23/2018 07/11/2019 Inactive Synthroid 88 mcg tablet RxNorm: 189127 1 Tablet(s) PO QD 08/19/2018 1 Inactive Medrol (Aníbal) 4 mg tablets in a dose pack RxNorm: 783883 Tablet(s) PO take as directed 08/16/2018 09/05/2018 Inactive Relistor 150 mg tablet RxNorm: 4489005 3 Tablet(s) PO QD 08/16/2018 1 Inactive Zithromax Z-Aníbal 250 mg tablet RxNorm: 754873 Tablet(s) PO take as directed 08/16/2018 09/05/2018 Inactive cyclobenzaprine 10 mg tablet RxNorm: 121467 1 Tablet(s) PO TID as needed 08/16/2018 11/08/2018 Inactive Synthroid 88 mcg tablet RxNorm: 602007 1 Tablet(s) PO Q D NEEDS UPDATED LABS BEFORE FURTHER REFILLS 08/08/2018 08/19/2018 Inactive Premarin 0.45 mg tablet RxNorm: 846254 1 Tablet(s) PO QD 08/03/2018 0 01/31/2019 Inactive fluoxetine 20 mg capsule RxNorm: 118221 TAKE ONE CAPSULE BY BENOIT TH DAILY 08/03/2018 09/26/2018 Inactive Xtampza ER 36 mg capsule sprinkle RxNorm: 8535414 1 Capsule(s) P O BID 08/03/2018 09/01/2018 Inactive metformin ER 500 mg tablet,extended release 24 hr RxNorm: 86 0975 1 Tablet(s) PO QD 08/03/2018 10/31/2018 Inactive Symbicort 160 mcg-4.5 mcg/actuation HFA aerosol inhaler RxNo rm: 1803499 2 Puff(s) INH BID 08/03/2018 01/29/2019 Inactive Duragesic 100 mcg/hr transdermal patch RxNorm: 512227 2 Application TD Q48H for pain 07/29/2018 08/27/2018 Inactive ProAir HFA 90 mcg/actuation aerosol inhaler RxNorm: 316939 INHALE TWO PUFFS BY MOUTH EVERY 4 HOURS FOR WHEEZING OR SHORTNESS OF BREATH 07/27/201802/2018 Inactive Relistor 150 mg tablet RxNorm: 8744437 3 Tablet(s) PO QD 07/20/2018 0 08/15/2018 Inactive metformin ER 500 mg tablet,extended release 24 hr RxNorm: 86 0975 TAKE ONE TABLET BY MOUTH DAILY 07/08/2018 08/02/2018 Inactive fluoxetine 40 mg capsule RxNorm: 756117 TAKE ONE CAPSULE BY BENOIT TH EVERY MORNING 07/08/2018 10/05/2018 Inactive Xtampza ER 18 mg capsule sprinkle RxNorm: 6577919 1 Capsule(s) P O BID 07/08/2018 08/02/2018 Inactive Relistor 150 mg tablet RxNorm: 4298961 3 Tablet(s) PO QD 07/08/2018 0 07/12/2018 Inactive Synthroid 88 mcg tablet RxNorm: 796013 1 Tablet(s) PO Q D NEEDS UPDATED LABS BEFORE FURTHER REFILLS 06/23/2018 07/07/2018 Inactive fluoxetine 40 mg capsule RxNorm: 594772 TAKE ONE CAPSULE BY BENOIT TH EVERY MORNING 06/15/2018 09/26/2018 Inactive orphenadrine citrate ER 100 mg tablet,extended release RxNor m: 898029 TAKE ONE TABLET BY MOUTH TWICE A DAY FOR MUSCLE SPASM 06/15/2018 08/15/2018 Renu ctive Duragesic 100 mcg/hr transdermal patch RxNorm: 578298 2 Application TD Q48H for pain 05/30/2018 06/28/2018 Inactive ProAir HFA 90 mcg/actuation aerosol inhaler RxNorm: 621583 INHALE TWO PUFFS BY MOUTH EVERY 4 HOURS FOR WHEEZING OR SHORTNESS OF BREATH 05/19/20180 03/2018 Inactive Chantix Continuing Month Box 1 mg tablet RxNorm: 461784 TAKE ONE TABLET BY MOUTH TWICE A DAY 05/19/2018 08/15/2018 Inactive oxycodone 10 mg tablet RxNorm: 5178771 1-2 Tablet(s) PO QID as n eeded for pain 05/19/2018 07/07/2018 Inactive gabapentin 300 mg capsule RxNorm: 334457 TAKE ONE CAPSULE BY MO UTH TWICE A DAY 05/18/2018 07/16/2018 Inactive ProAir HFA 90 mcg/actuation aerosol inhaler RxNorm: 592586 INHALE TWO PUFFS BY MOUTH EVERY 4 HOURS FOR WHEEZING OR SHORTNESS OF BREATH 05/04/201804/23 Inactive Augmentin 500 mg-125 mg tablet RxNorm: 093709 1 Tablet(s) PO BID 05/03/2018 Inactive oxycodone 10 mg tablet RxNorm: 6707539 1-2 Tablet(s) PO QID as n eeded for pain 04/21/2018 05/18/2018 Inactive Synthroid 88 mcg tablet RxNorm: 353265 1 Tablet(s) PO QD 04/15/2018 0 08/08/2018 Inactive Symbicort 160 mcg-4.5 mcg/actuation HFA aerosol inhaler RxNo rm: 4701822 2 Puff(s) INH BID 04/15/2018 04/10/2019 Inactive Premarin 0.45 mg tablet RxNorm: 158250 1 Tablet(s) PO QD 04/15/2018 0 08/03/2018 Inactive ProAir HFA 90 mcg/actuation aerosol inhaler RxNorm: 366896 2 Puff(s) INH Q4H prn for wheezing or shortness of breath 04/15/2018 05/03/2018 Inactive metformin ER 500 mg tablet,extended release 24 hr RxNorm: 86 0975 1 Tablet(s) PO QD 04/11/2018 07/07/2018 Inactive omeprazole 40 mg capsule,delayed release RxNorm: 152108 TAKE ONE CAPSULE BY MOUTH DAILY 04/10/2018 06/08/2018 Inactive Synthroid 88 mcg tablet RxNorm: 655780 1 Tablet(s) PO QD 04/04/2018 0 04/14/2018 Inactive Synthroid 88 mcg tablet RxNorm: 537171 1 Tablet(s) PO QD 04/04/2018 0 04/03/2018 Inactive orphenadrine citrate ER 100 mg tablet,extended release RxNor m: 362478 1 Tablet(s) PO BID for muscle spasm 04/04/2018 05/03/2018 Inactive metformin ER 500 mg tablet,extended release 24 hr RxNorm: 86 0975 1 Tablet(s) PO QD NEEDS UPDATED LABS 03/31/2018 04/11/2018 Inactive doxycycline hyclate 100 mg capsule RxNorm: 1451979 1 Capsule(s) PO BID 03/31/2018 04/09/2018 Inactive prednisone 20 mg tablet RxNorm: 494447 3 Tablet(s) PO T ID for 3 days then 1 po BID for 3 days then one daily for 3 days 03/31/2018 07/06/2018 Inactiv e Chantix Continuing Month Box 1 mg tablet RxNorm: 589981 TAKE ONE TABLET BY MOUTH TWICE A DAY 03/25/2018 03/30/2018 Inactive oxycodone 10 mg tablet RxNorm: 8605306 1-2 Tablet(s) PO QID as n eeded for pain 03/21/2018 04/20/2018 Inactive Daliresp 500 mcg tablet RxNorm: 6428709 1 Tablet(s) PO QD 03/15/2018 08/22/2018 Inactive metformin ER 500 mg tablet,extended release 24 hr RxNorm: 86 0975 1 Tablet(s) PO QD NEEDS UPDATED LABS 03/14/2018 03/31/2018 Inactive nystatin 100,000 unit/mL oral suspension RxNorm: 710236 5 Chio liter(s) PO QID 03/02/2018 03/15/2018 Inactive nystatin 100,000 unit/mL oral suspension RxNorm: 656537 5 Chio liter(s) PO QID 03/02/2018 03/01/2018 Inactive oxycodone 10 mg tablet RxNorm: 4131124 1-2 Tablet(s) PO QID as n eeded for pain 02/16/2018 03/20/2018 Inactive fluoxetine 20 mg capsule RxNorm: 501701 1 Capsule(s) PO QD 02/15/20 18 08/02/2018 Inactive metformin ER 500 mg tablet,extended release 24 hr RxNorm: 86 0975 1 Tablet(s) PO QD Needs updated labs 02/14/2018 03/14/2018 Inactive cefdinir 300 mg capsule RxNorm: 515285 1 Capsule(s) PO BID 01/27/20 18 02/04/2018 Inactive orphenadrine citrate ER 100 mg tablet,extended release RxNor m: 447371 1 Tablet(s) PO BID for muscle spasm 01/26/2018 04/04/2018 Inactive gabapentin 300 mg capsule RxNorm: 396080 1 Capsule(s) PO BID 201704/17/2018 Inactive oxycodone 10 mg tablet RxNorm: 6082947 1-2 Tablet(s) PO QID as n eeded for pain 01/17/2018 02/15/2018 Inactive Duragesic 100 mcg/hr transdermal patch RxNorm: 718636 2 Application TD Q48H for pain 01/17/2018 02/15/2018 Inactive gabapentin 300 mg capsule RxNorm: 122169 TAKE ONE CAPSULE BY MO UTH TWICE A DAY 12/20/2017 01/18/2018 Inactive fluoxetine 40 mg capsule RxNorm: 776545 TAKE ONE CAPSULE BY BENOIT TH EVERY MORNING 12/15/2017 03/14/2018 Inactive OneTouch Ultra Test strips RxNorm: TEST DAILY 11/04/2017 02/01/2018 Inactive gabapentin 300 mg capsule RxNorm: 956394 1 Capsule(s) P O TID replaces BID dosing 10/26/2017 02/22/2018 Inactive oxycodone 10 mg tablet RxNorm: 2734600 1-2 Tablet(s) PO QID as n eeded for pain 10/18/2017 01/16/2018 Inactive Duragesic 100 mcg/hr transdermal patch RxNorm: 585570 2 Application TD Q48H for pain 10/18/2017 11/16/2017 Inactive gabapentin 300 mg capsule RxNorm: 095557 1 Capsule(s) PO BID 201610/25/2017 Inactive Abilify 5 mg tablet RxNorm: 396042 1 Tablet(s) PO QAM 09/23/201702/2017 Inactive gabapentin 300 mg capsule RxNorm: 932006 1 Capsule(s) PO BID 201610/17/2017 Inactive oxycodone 10 mg tablet RxNorm: 6118365 1-2 Tablet(s) PO QID as n eeded for pain 09/15/2017 10/17/2017 Inactive Duragesic 100 mcg/hr transdermal patch RxNorm: 678233 2 Application TD Q48H for pain 09/15/2017 10/14/2017 Inactive Duragesic 100 mcg/hr transdermal patch RxNorm: 465569 2 Application TD Q48H for pain 09/15/2017 10/24/2019 Inactive oxycodone 10 mg tablet RxNorm: 8412809 1-2 Tablet(s) PO QID as n eeded for pain 09/15/2017 08/15/2018 Inactive Daliresp 500 mcg tablet RxNorm: 2407031 1 Tablet(s) PO QD 09/06/2017 03/15/2018 Inactive Ventolin HFA 90 mcg/actuation aerosol inhaler RxNorm: 854408 2 Puff(s) INH Q4H as needed 09/02/2017 05/19/2018 Inactive oxycodone 10 mg tablet RxNorm: 6632069 1-2 Tablet(s) PO QID as n eeded for pain 08/17/2017 09/14/2017 Inactive Duragesic 100 mcg/hr transdermal patch RxNorm: 636268 2 Application TD Q48H for pain 08/17/2017 09/14/2017 Inactive fluoxetine 40 mg capsule RxNorm: 408320 Capsule(s) TAKE ONE CAPSULE BY MOUTH EVERY MORNING 08/17/2017 12/14/2017 Inactive Pulmicort 1 mg/2 mL suspension for nebulization RxNorm: 6168 19 1 Unit Dose INH BID Dx: COPD (J44.9) 08/16/2017 08/22/2018 Inactive gabapentin 300 mg capsule RxNorm: 697886 1 Capsule(s) PO QHS 201610/18/2017 Inactive fluoxetine 20 mg capsule RxNorm: 308833 1 Capsule(s) PO QD 08/12/20 17 02/14/2018 Inactive Abilify 2 mg tablet RxNorm: 194967 1 Tablet(s) PO QD TA KE ONE TABLET BY MOUTH DAILY 08/12/2017 10/25/2017 Inactive metformin ER 500 mg tablet,extended release 24 hr RxNorm: 86 0975 1 Tablet(s) PO QD 08/10/2017 02/14/2018 Inactive Synthroid 112 mcg tablet RxNorm: 192339 1 Tablet(s) PO QD 08/10/2017 04/15/2018 Inactive oxycodone 10 mg tablet RxNorm: 7608496 1-2 Tablet(s) PO QID as n eeded for pain 07/19/2017 08/16/2017 Inactive Duragesic 100 mcg/hr transdermal patch RxNorm: 244031 2 Application TD Q48H for pain 07/19/2017 08/16/2017 Inactive Ventolin HFA 90 mcg/actuation aerosol inhaler RxNorm: 594780 2 Puff(s) INH Q4H as needed 07/12/2017 09/02/2017 Inactive Abilify 2 mg tablet RxNorm: 567068 1 Tablet(s) PO QD TA KE ONE TABLET BY MOUTH DAILY 07/06/2017 08/11/2017 Inactive gabapentin 800 mg tablet RxNorm: 404906 1 Tablet(s) PO TID 06/22/20 17 07/05/2017 Inactive Chantix Starting Month Box 0.5 mg (11)-1 mg (42) table ts in dose pack RxNorm: 098321 TAKE BY MOUTH INSTRUCTED - PER PACKAGE INSTRUCTIONS 06/0707/04/2017 Inactive Ventolin HFA 90 mcg/actuation aerosol inhaler RxNorm: 967020 2 Puff(s) INH Q4H as needed 05/26/2017 07/12/2017 Inactive Duragesic 100 mcg/hr transdermal patch RxNorm: 823367 2 Application TD Q48H for pain 05/19/2017 06/17/2017 Inactive oxycodone 10 mg tablet RxNorm: 4064584 1-2 Tablet(s) PO QID as n eeded for pain 05/19/2017 07/18/2017 Inactive Abilify 2 mg tablet RxNorm: 330645 TAKE ONE TABLET BY MOUTH DAILY 0 05/10/2017 07/05/2017 Inactive Synthroid 112 mcg tablet RxNorm: 919350 1 Tablet(s) PO QD 05/06/2017 08/10/2017 Inactive metformin ER 500 mg tablet,extended release 24 hr RxNorm: 86 0975 1 Tablet(s) PO QD 05/06/2017 08/10/2017 Inactive Topamax 100 mg tablet RxNorm: 216371 1 Tablet(s) PO QHS 05/06/2017 Inactive Premarin 0.45 mg tablet RxNorm: 419083 1 Tablet(s) PO QD 05/06/2017 0 04/15/2018 Inactive orphenadrine citrate ER 100 mg tablet,extended release RxNor m: 605102 1 Tablet(s) PO TID for muscle spasm--replaces methocarbamol 04/29/2017 Inactive oxycodone 10 mg tablet RxNorm: 2468270 1-2 Tablet(s) PO QID as n eeded for pain 04/21/2017 05/18/2017 Inactive Duragesic 100 mcg/hr transdermal patch RxNorm: 010081 2 Application TD Q48H for pain 04/21/2017 05/18/2017 Inactive fluoxetine 40 mg capsule RxNorm: 427426 Capsule(s) TAKE ONE CAPSULE BY MOUTH EVERY MORNING 04/20/2017 08/17/2017 Inactive Ventolin HFA 90 mcg/actuation aerosol inhaler RxNorm: 553148 2 Puff(s) INH Q4H as needed 04/05/2017 05/26/2017 Inactive Symbicort 160 mcg-4.5 mcg/actuation HFA aerosol inhaler RxNo rm: 8224027 2 Puff(s) INH BID 03/30/2017 04/15/2018 Inactive Spiriva with HandiHaler 18 mcg and inhalation capsules RxNor m: 993098 1 Capsule(s) INH QD USING HANDIHALER 03/30/2017 02/12/2019 Inactive Duragesic 100 mcg/hr transdermal patch RxNorm: 479676 2 Application TD Q48H for pain 03/18/2017 04/16/2017 Inactive oxycodone 10 mg tablet RxNorm: 4308739 1-2 Tablet(s) PO QID as n eeded for pain 03/18/2017 04/20/2017 Inactive metformin ER 500 mg tablet,extended release 24 hr RxNorm: 86 0975 Tablet(s) TAKE ONE TABLET BY MOUTH DAILY 03/01/2017 05/06/2017 Inactive Premarin 0.45 mg tablet RxNorm: 324477 Tablet(s) TAKE ONE TABLE T BY MOUTH DAILY 03/01/2017 05/06/2017 Inactive Synthroid 112 mcg tablet RxNorm: 399599 Tablet(s) TAKE ONE TABLET BY MOUTH DAILY 03/01/2017 05/06/2017 Inactive Daliresp 500 mcg tablet RxNorm: 7547090 1 Tablet(s) PO QD 03/01/2017 09/06/2017 Inactive 16.2 mg-0.1037 mg-0.0194 mg tablet RxNorm: 0428074 Tablet(s) PO PRN for gas and cramping 02/23/2017 04/28/2017 Inactive TAKE TWO TABLET S BY MOUTH THREE TIMES A DAY NEEDED FOR GAS AND CRAMPING gabapentin 800 mg tablet RxNorm: 814166 1 Tablet(s) PO TID repl aces 600mg 02/23/2017 04/28/2017 Inactive Duragesic 100 mcg/hr transdermal patch RxNorm: 990645 2 Application TD Q48H for pain 02/17/2017 03/17/2017 Inactive fluoxetine 20 mg capsule RxNorm: 681365 1 Capsule(s) PO QD 02/18/20 17 08/12/2017 Inactive oxycodone 20 mg tablet RxNorm: 5575128 1 Tablet(s) PO QID as nee ded for pain 02/17/2017 03/17/2017 Inactive Ventolin HFA 90 mcg/actuation aerosol inhaler RxNorm: 134420 INHALE TWO PUFFS BY MOUTH EVERY 4 HOURS NEEDED 02/15/2017 04/05/2017 Inactive Silvadene 1 % topical cream RxNorm: 669338 1 Application TOP BI D to burn area 02/01/2017 09/22/2017 Inactive Topamax 100 mg tablet RxNorm: 868484 TAKE ONE TABLET BY MOUTH EVERY NIGHT AT BEDTIME 01/29/2017 05/06/2017 Inactive Chantix Starting Month Box 0.5 mg (11)-1 mg (42) table ts in dose pack RxNorm: 661376 Tablet(s) PO as directed 01/29/2017 06/01/2017 Inactive Abilify 2 mg tablet RxNorm: 282320 TAKE ONE TABLET BY MOUTH DAILY 0 01/26/2017 04/25/2017 Inactive Chantix Starting Month Box 0.5 mg (11)-1 mg (42) table ts in dose pack RxNorm: 224830 Tablet(s) PO as directed 01/20/2017 01/28/2017 Inactive gabapentin 600 mg tablet RxNorm: 589698 1 Tablet(s) PO TID 01/21/20 17 02/22/2017 Inactive Chantix Continuing Month Box 1 mg tablet RxNorm: 143293 1 Table t(s) PO BID 12/31/2016 06/01/2017 Inactive Spiriva with HandiHaler 18 mcg and inhalation capsules RxNor m: 127425 INHALE THE ENTIRE CONTENTS OF 1 CAPSULE ONCE A DAY USING HANDIHALER 12/31/201607/2017 Inactive Synthroid 112 mcg tablet RxNorm: 926388 TAKE ONE TABLET BY MOUT H DAILY 12/30/2016 03/01/2017 Inactive metformin ER 500 mg tablet,extended release 24 hr RxNorm: 86 0975 TAKE ONE TABLET BY MOUTH DAILY 12/30/2016 03/01/2017 Inactive Premarin 0.45 mg tablet RxNorm: 866377 TAKE ONE TABLET BY MOUTH DAILY 12/30/2016 03/01/2017 Inactive omeprazole 40 mg capsule,delayed release RxNorm: 116546 TAKE ONE CAPSULE BY MOUTH DAILY 12/30/2016 01/25/2018 Inactive Ventolin HFA 90 mcg/actuation aerosol inhaler RxNorm: 399366 INHALE TWO PUFFS BY MOUTH EVERY 4 HOURS NEEDED 12/28/2016 02/13/2017 Inactive fluoxetine 40 mg capsule RxNorm: 725674 TAKE ONE CAPSULE BY BENOIT TH EVERY MORNING 12/15/2016 04/20/2017 Inactive Chantix Continuing Month Box 1 mg tablet RxNorm: 521413 TAKE ONE TABLET BY MOUTH TWICE A DAY 12/04/2016 12/31/2016 Inactive doxycycline hyclate 100 mg capsule RxNorm: 5182004 1 Capsule(s) PO BID 12/01/2016 12/07/2016 Inactive Levaquin 750 mg tablet RxNorm: 053173 1 Tablet(s) PO QD 12/01/2016 Inactive Abilify 2 mg tablet RxNorm: 661630 TAKE ONE TABLET BY MOUTH DAILY 0 11/25/2016 11/30/2016 Inactive Ventolin HFA 90 mcg/actuation aerosol inhaler RxNorm: 792749 INHALE TWO PUFFS BY MOUTH EVERY 4 HOURS NEEDED 11/02/2016 12/19/2016 Inactive Chantix Continuing Month Box 1 mg tablet RxNorm: 199035 Tablet(s) PO as directed 10/30/2016 12/03/2016 Inactive Symbicort 160 mcg-4.5 mcg/actuation HFA aerosol inhaler RxNo rm: 3385639 INHALE TWO PUFFS TWO TIMES A DAY 10/30/2016 03/30/2017 Inactive Abilify 2 mg tablet RxNorm: 520075 1 Tablet(s) PO QD 10/27/201611/24 Inactive amoxicillin 500 mg capsule RxNorm: 369455 1 Capsule(s) PO TID 10/1410/23/2016 Inactive amoxicillin 500 mg capsule RxNorm: 593535 1 Capsule(s) PO TID 10/1410/13/2016 Inactive Synthroid 112 mcg tablet RxNorm: 918920 TAKE ONE TABLET BY MOUT H DAILY 09/28/2016 12/29/2016 Inactive Topamax 100 mg tablet RxNorm: 110576 TAKE ONE TABLET BY MOUTH EVERY NIGHT AT BEDTIME 09/28/2016 01/28/2017 Inactive Premarin 0.45 mg tablet RxNorm: 553173 TAKE ONE TABLET BY MOUTH DAILY 09/28/2016 12/29/2016 Inactive metformin ER 500 mg tablet,extended release 24 hr RxNorm: 86 0975 TAKE ONE TABLET BY MOUTH DAILY 09/28/2016 12/29/2016 Inactive Ventolin HFA 90 mcg/actuation aerosol inhaler RxNorm: 787322 INHALE TWO PUFFS BY MOUTH EVERY 4 HOURS NEEDED 09/22/2016 10/23/2016 Inactive Pulmicort 1 mg/2 mL suspension for nebulization RxNorm: 6168 19 1 Unit Dose INH BID Dx: COPD (J44.9) 09/10/2016 08/16/2017 Inactive Pulmicort 1 mg/2 mL suspension for nebulization RxNorm: 6168 19 1 Unit Dose INH BID 09/10/2016 09/09/2016 Inactive Brovana 15 mcg/2 mL solution for nebulization RxNorm: 618396 1 Unit Dose INH BID Dx: COPD (J44.9) 09/10/2016 01/25/2018 Inactive Brovana 15 mcg/2 mL solution for nebulization RxNorm: 037845 1 Unit Dose INH BID 09/10/2016 09/09/2016 Inactive ipratropium-albuterol 0.5 mg-3 mg(2.5 mg base)/3 mL ne bulization soln RxNorm: 2116200 1 Unit Dose INH Q4H as needed Dx: COPD (J44.9) 09/10/2016 0 02/12/2019 Inactive orphenadrine citrate ER 100 mg tablet,extended release RxNor m: 835695 1 Tablet(s) PO BID for muscle spasm--replaces methocarbamol 09/09/2016 Inactive Chantix Continuing Month Box 1 mg tablet RxNorm: 411637 Tablet(s) PO as directed 09/09/2016 10/30/2016 Inactive orphenadrine citrate ER 100 mg tablet,extended release RxNor m: 642208 1 Tablet(s) PO BID for muscle spasm 09/09/2016 09/08/2016 Inactive Spiriva with HandiHaler 18 mcg and inhalation capsules RxNor m: 323689 INHALE THE ENTIRE CONTENTS OF 1 CAPSULE ONCE A DAY USING HANDIHALER 09/01/201605/2017 Inactive Daliresp 500 mcg tablet RxNorm: 8876136 1 Tablet(s) PO QD 08/27/2016 03/01/2017 Inactive prednisone 20 mg tablet RxNorm: 661624 3 Tablet(s) PO T ID for 3 days then 1 po BID for 3 days then one daily for 3 days 08/26/2016 04/28/2017 Inactiv e Wellbutrin XL 300 mg 24 hr tablet, extended release RxNorm: 815768 TAKE ONE TABLET BY MOUTH EVERY MORNING 07/29/2016 10/26/2016 Inactive gabapentin 600 mg tablet RxNorm: 361082 1 Tablet(s) PO BID 06/26/20 16 12/22/2016 Inactive fluoxetine 40 mg capsule RxNorm: 374931 TAKE ONE CAPSULE BY BENOIT TH EVERY MORNING 06/24/2016 11/20/2016 Inactive Duragesic 100 mcg/hr transdermal patch RxNorm: 150167 2 Application TD Q48H for pain 06/05/2016 07/04/2016 Inactive oxycodone 10 mg tablet RxNorm: 5793068 1-2 Tablet(s) PO QID as n eeded for pain 06/05/2016 03/17/2017 Inactive Belladonna-Phenobarbital 48 mg tablet,extended release RxNor m: 2 Tablet(s) PO TID 06/05/2016 01/19/2017 Inactive Premarin 0.45 mg tablet RxNorm: 245109 TAKE ONE TABLET BY MOUTH DAILY 05/27/2016 09/23/2016 Inactive Topamax 100 mg tablet RxNorm: 334650 TAKE ONE TABLET BY MOUTH EVERY NIGHT AT BEDTIME 05/27/2016 09/27/2016 Inactive Synthroid 112 mcg tablet RxNorm: 037163 TAKE ONE TABLET BY MOUT H DAILY 05/27/2016 09/23/2016 Inactive metformin ER 500 mg tablet,extended release 24 hr RxNorm: 86 0975 TAKE ONE TABLET BY MOUTH DAILY 05/27/2016 09/23/2016 Inactive Symbicort 160 mcg-4.5 mcg/actuation HFA aerosol inhaler RxNo rm: 6533802 INHALE TWO PUFFS TWO TIMES A DAY 05/27/2016 10/23/2016 Inactive Ventolin HFA 90 mcg/actuation aerosol inhaler RxNorm: 402777 INHALE TWO PUFFS BY MOUTH EVERY 4 HOURS NEEDED 05/21/2016 07/07/2016 Inactive omeprazole 40 mg capsule,delayed release RxNorm: 673444 1 Capsu le(s) PO QD 05/06/2016 08/03/2016 Inactive metformin ER 500 mg tablet,extended release 24 hr RxNorm: 86 0975 TAKE ONE TABLET BY MOUTH DAILY 04/23/2016 05/22/2016 Inactive methocarbamol 750 mg tablet RxNorm: 414598 2 Tablet(s) PO TID as needed for muscle spasm 04/23/2016 09/08/2016 Inactive Synthroid 112 mcg tablet RxNorm: 168488 TAKE ONE TABLET BY MOUT H DAILY 04/23/2016 05/22/2016 Inactive Spiriva with HandiHaler 18 mcg and inhalation capsules RxNor m: 516488 INHALE THE ENTIRE CONTENTS OF 1 CAPSULE ONCE A DAY USING HANDIHALER 04/09/201608/2016 Inactive Diflucan 100 mg tablet RxNorm: 058794 1 Tablet(s) PO QD 04/08/2016 Inactive doxycycline hyclate 100 mg capsule RxNorm: 6537460 1 Capsule(s) PO BID 04/08/2016 04/17/2016 Inactive doxycycline hyclate 100 mg capsule RxNorm: 7400752 1 Capsule(s) PO BID 04/08/2016 04/07/2016 Inactive Diflucan 100 mg tablet RxNorm: 556732 1 Tablet(s) PO QD 04/08/2016 Inactive ondansetron HCl 4 mg tablet RxNorm: 119032 1 Tablet(s) PO Q4H as needed for nausea and vomiting 04/08/2016 09/22/2017 Inactive gabapentin 600 mg tablet RxNorm: 377873 TAKE ONE TABLET BY MOUT H TWICE A DAY 03/24/2016 06/25/2016 Inactive Synthroid 112 mcg tablet RxNorm: 916802 TAKE ONE TABLET BY MOUT H DAILY 02/25/2016 04/22/2016 Inactive Levaquin 500 mg tablet RxNorm: 585926 1 Tablet(s) PO QD 01/23/2016 Inactive prednisone 20 mg tablet RxNorm: 722761 1 Tablet(s) PO T ID for 3 days then 1 po BID for 3 days then one daily for 3 days 01/23/2016 08/25/2016 Inactiv e [employer] Ultra Test strips RxNorm: TEST BLOOD SUGAR ONCE DAILY 250.00 01/09/2016 11/04/2017 Inactive methocarbamol 750 mg tablet RxNorm: 868638 2 Tablet(s) PO TID as needed for muscle spasm 01/09/2016 04/23/2016 Inactive lactulose 10 gram/15 mL oral solution RxNorm: 511498 [address](s) PO QD 01/09/2016 09/22/2017 Inactive TAKE 1 TABLESPOON BY MOUTH ONCE DAILY metformin ER 500 mg tablet,extended release 24 hr RxNorm: 86 0975 1 Tablet(s) PO QD 12/26/2015 04/22/2016 Inactive fluoxetine 20 mg capsule RxNorm: 351600 1 Capsule(s) PO QD 12/23/19 16 06/19/2016 Inactive Premarin 0.45 mg tablet RxNorm: 068012 TAKE ONE TABLET BY MOUTH DAILY 12/23/2015 05/20/2016 Inactive fluoxetine 40 mg capsule RxNorm: 082452 1 Capsule(s) PO QD 12/23/19 16 06/19/2016 Inactive TAKE ONE CAPSULE BY MOUTH EV JANKI MORNING azithromycin 500 mg tablet RxNorm: 944912 1 Tablet(s) PO QD 016 12/19/2015 Inactive Zofran 4 mg tablet RxNorm: 094532 1 Tablet(s) PO Q4H prn nausea /vomiting 12/13/2015 03/30/2018 Inactive azithromycin 500 mg tablet RxNorm: 489806 1 Tablet(s) PO QD 016 12/12/2015 Inactive Duragesic 100 mcg/hr transdermal patch RxNorm: 313011 2 Application TD Q48H for pain 12/09/2015 01/07/2016 Inactive oxycodone 10 mg tablet RxNorm: 9305650 1-2 Tablet(s) PO QID as n eeded for pain 12/09/2015 06/04/2016 Inactive Bactroban 2 % topical cream RxNorm: 127066 Application TOP BID 11/2208/25/2016 Inactive doxycycline hyclate 100 mg capsule RxNorm: 3037345 1 Capsule(s) PO BID 12/03/2015 12/12/2015 Inactive Topamax 100 mg tablet RxNorm: 642408 TAKE ONE TABLET BY MOUTH EVERY NIGHT AT BEDTIME 11/25/2015 05/22/2016 Inactive Symbicort 160 mcg-4.5 mcg/actuation HFA aerosol inhaler RxNo rm: 5457076 INHALE TWO PUFFS TWO TIMES A DAY 11/25/2015 05/22/2016 Inactive Synthroid 112 mcg tablet RxNorm: 187645 Tablet(s) TAKE ONE TABLET BY MOUTH DAILY 11/25/2015 02/22/2016 Inactive omeprazole 40 mg capsule,delayed release RxNorm: 908915 1 Capsu le(s) PO QD 11/12/2015 05/05/2016 Inactive oxycodone 10 mg tablet RxNorm: 5133807 1-2 Tablet(s) PO QID as n eeded for pain 11/05/2015 12/08/2015 Inactive Duragesic 100 mcg/hr transdermal patch RxNorm: 495987 2 Application TD Q48H for pain 11/05/2015 12/04/2015 Inactive omeprazole 40 mg capsule,delayed release RxNorm: 816818 1 Capsu le(s) PO QD 10/07/2015 11/11/2015 Inactive Januvia 100 mg tablet RxNorm: 395977 TAKE ONE TABLET BY MOUTH DAILY 09/11/2015 12/25/2015 Inactive Zithromax 500 mg tablet RxNorm: 123942 1 Tablet(s) PO QD 09/10/2015 1 Inactive prednisone 20 mg tablet RxNorm: 470286 1 Tablet(s) PO T ID for 3 days then 1 po BID for 3 days then one daily for 3 days 09/10/2015 08/25/2016 Inactiv e Wellbutrin XL 300 mg 24 hr tablet, extended release RxNorm: 898621 1 Tablet(s) PO QAM 09/10/2015 12/02/2015 Inactive Topamax 100 mg tablet RxNorm: 041273 TAKE ONE TABLET BY MOUTH EVERY NIGHT AT BEDTIME 09/02/2015 11/24/2015 Inactive Synthroid 112 mcg tablet RxNorm: 869424 TAKE ONE TABLET BY MOUT H DAILY 09/02/2015 11/25/2015 Inactive methocarbamol 750 mg tablet RxNorm: 667531 2 Tablet(s) PO TID as needed for muscle spasm 08/15/2015 01/09/2016 Inactive Wellbutrin XL 150 mg 24 hr tablet, extended release RxNorm: 543159 TAKE ONE TABLET BY MOUTH EVERY MORNING 08/13/2015 08/13/2015 Inactive gabapentin 600 mg tablet RxNorm: 135386 1 Tablet(s) PO BID 08/13/20 15 02/08/2016 Inactive Wellbutrin XL 300 mg 24 hr tablet, extended release RxNorm: 272069 1 Tablet(s) PO QAM 08/06/2015 09/09/2015 Inactive Wellbutrin XL 150 mg 24 hr tablet, extended release RxNorm: 134856 1 Tablet(s) PO QAM 07/18/2015 08/05/2015 Inactive prednisone 20 mg tablet RxNorm: 494058 1 Tablet(s) PO BID 07/18/2015 07/22/2015 Inactive doxycycline hyclate 100 mg tablet,delayed release RxNorm: 43 4018 1 Tablet(s) PO BID 07/18/2015 07/27/2015 Inactive pravastatin 40 mg tablet RxNorm: 501317 1 Tablet(s) PO QD NEEDS FASTING LAB 07/15/2015 07/14/2015 Inactive pravastatin 40 mg tablet RxNorm: 837533 1 Tablet(s) PO QD NEEDS FASTING LAB 07/15/2015 01/25/2018 Inactive Ventolin HFA 90 mcg/actuation aerosol inhaler RxNorm: 661219 2 Puff(s) INH Q4H 07/08/2015 07/07/2015 Inactive prn Premarin 0.45 mg tablet RxNorm: 691322 1 Tablet(s) PO QD 07/01/2015 0 12/22/2015 Inactive pravastatin 40 mg tablet RxNorm: 959702 1 Tablet(s) PO QD NEEDS FASTING LAB 06/14/2015 07/15/2015 Inactive Ventolin HFA 90 mcg/actuation aerosol inhaler RxNorm: 7726106 2 Puff(s) INH Q4H 06/06/2015 07/08/2015 Inactive prn albuterol sulfate 2.5 mg/3 mL (0.083 %) solution for n ebulization RxNorm: 487324 1 Unit Dose INH QID 05/30/2015 No Stop Date Active Duragesic 100 mcg/hr transdermal patch RxNorm: 679440 2 Application TD Q48H for pain 04/29/2015 05/28/2015 Inactive gabapentin 600 mg tablet RxNorm: 174090 1 Tablet(s) PO BID 04/11/20 15 08/13/2015 Inactive Onglyza 5 mg tablet RxNorm: 363625 1 Tablet(s) PO QD for blood suga r 04/10/2015 04/15/2015 Inactive [Brand Copay Card: RxBIN:[id number] PCN: [id number] ID#:[id number]] methocarbamol 750 mg tablet RxNorm: 601385 2 Tablet(s) PO TID as needed for muscle spasm 03/28/2015 08/15/2015 Inactive pravastatin 40 mg tablet RxNorm: 278615 1 Tablet(s) PO QD 03/19/2015 03/18/2015 Inactive pravastatin 40 mg tablet RxNorm: 985656 1 Tablet(s) PO QD 03/19/2015 06/14/2015 Inactive lactulose 10 gram/15 mL oral solution RxNorm: 543359 [address]s) PO QD 03/07/2015 01/09/2016 Inactive TAKE 1 TABLESPOON BY MOUTH ONCE DAILY oxycodone 20 mg tablet RxNorm: 7916873 1 Tablet(s) PO QID as nee ded for pain 03/05/2015 07/08/2015 Inactive Topamax 100 mg tablet RxNorm: 650273 1 Tablet(s) PO QHS TAKE ONE TABLET BY MOUTH AT BEDTIME 02/25/2015 02/12/2019 Inactive metformin ER 500 mg tablet,extended release 24 hr RxNorm: 86 0975 1 Tablet(s) PO QD 02/11/2015 03/04/2015 Inactive take one tablet by mouth every day Daliresp 500 mcg tablet RxNorm: 4390684 1 Tablet(s) PO QD 02/11/2015 08/09/2015 Inactive Endocet 10 mg-325 mg tablet RxNorm: 1836263 1 Tablet(s) PO Q4H as needed for pain 01/23/2015 01/23/2015 Inactive gabapentin 600 mg tablet RxNorm: 799785 1 Tablet(s) PO BID 01/23/20 15 04/11/2015 Inactive methocarbamol 750 mg tablet RxNorm: 759824 2 Tablet(s) PO TID as needed for muscle spasm 01/15/2015 02/13/2015 Inactive fluoxetine 40 mg capsule RxNorm: 309261 1 Capsule(s) PO QD 01/14/20 15 12/23/2015 Inactive TAKE ONE CAPSULE BY MOUTH EV JANKI MORNING fluoxetine 20 mg capsule RxNorm: 618502 1 Capsule(s) PO QD 01/14/20 15 12/23/2015 Inactive Premarin 0.45 mg tablet RxNorm: 345218 1 Tablet(s) PO QD 01/02/2015 0 07/01/2015 Inactive Endocet 10 mg-325 mg tablet RxNorm: 6559714 1-2 Tablet(s) PO Q4H 02/12/2019 Inactive PRN PAIN Duragesic 100 mcg/hr transdermal patch RxNorm: 684032 2 Application TD Q48H for pain 12/25/2014 01/23/2015 Inactive Topamax 100 mg tablet RxNorm: 635969 1 Tablet(s) PO QHS TAKE ONE TABLET BY MOUTH AT BEDTIME 12/25/2014 02/24/2015 Inactive Tudorza Pressair 400 mcg/actuation breath activated RxNorm: 7871867 1 BID INHALE ONE PUFF INTO LUNGS TWO TIMES A DAY 12/17/2014 05/15/2015 Inactive Endocet 10 mg-325 mg tablet RxNorm: 8489392 1-2 Tablet(s) PO Q4H 12/19/2014 Inactive PRN PAIN Duragesic 100 mcg/hr transdermal patch RxNorm: 058931 2 Application TD Q48H for pain 11/20/2014 12/24/2014 Inactive [employer] Ultra Test strips RxNorm: TEST BLOOD SUGAR ONCE DAILY 250.00 11/16/2014 01/08/2016 Inactive omeprazole 40 mg capsule,delayed release RxNorm: 907834 1 Capsu le(s) PO QD 11/13/2014 11/12/2015 Inactive metformin ER 500 mg tablet,extended release 24 hr RxNorm: 86 0975 1 Tablet(s) PO QD 11/12/2014 02/11/2015 Inactive take one tablet by mouth every day Symbicort 160 mcg-4.5 mcg/actuation HFA aerosol inhaler RxNo rm: 1891624 2 Puff(s) INH BID 11/12/2014 03/11/2015 Inactive INHALE 2 PUFFS O RALLY TWO TIMES A DAY gabapentin 800 mg tablet RxNorm: 199366 1 Tablet(s) PO QD TAKE ONE TABLET BY MOUTH ONCE A DAY 10/22/2014 01/01/2015 Inactive Endocet 10 mg-325 mg tablet RxNorm: 4376722 1-2 Tablet(s) PO Q4H 11/15/2014 Inactive PRN PAIN Duragesic 100 mcg/hr transdermal patch RxNorm: 744808 2 Application TD Q48H for pain 10/17/2014 11/19/2014 Inactive gabapentin 800 mg tablet RxNorm: 030629 1 Tablet(s) PO QD TAKE ONE TABLET BY MOUTH ONCE A DAY 10/04/2014 10/21/2014 Inactive Premarin 0.9 mg tablet RxNorm: 535671 1 Tablet(s) PO QD TAKE ONE TABLET BY MOUTH ONCE A DAY 10/04/2014 01/01/2015 Inactive Spiriva with HandiHaler 18 mcg & inhalation capsules RxNorm: 817121 1 Capsule(s) INH QD 10/03/2014 04/30/2015 Inactive Levaquin 500 mg tablet RxNorm: 662460 1 Tablet(s) PO QD 10/03/2014 Inactive prednisone 20 mg tablet RxNorm: 424357 1 Tablet(s) PO QD 10/03/2014 1 12/09/2013 Inactive Duragesic 100 mcg/hr transdermal patch RxNorm: 349764 2 Application TD Q48H for pain 09/18/2014 10/16/2014 Inactive Endocet 10 mg-325 mg tablet RxNorm: 4820453 1-2 Tablet(s) PO Q4H 10/16/2014 Inactive PRN PAIN Synthroid 112 mcg tablet RxNorm: 526556 1 Tablet(s) QD 09/10/2014 Inactive Synthroid 112 mcg tablet RxNorm: 219639 TAKE ONE TABLET BY MOUTH ONE TIME A DAY. NEEDS LABS 09/10/2014 02/06/2015 Inactive omeprazole 40 mg capsule,delayed release RxNorm: 886588 1 Capsu le(s) PO QD 09/03/2014 11/13/2014 Inactive omeprazole 40 mg capsule,delayed release RxNorm: 284025 1 Capsu le(s) PO QD 09/03/2014 09/02/2014 Inactive Spiriva with HandiHaler 18 mcg & inhalation capsules RxNorm: 536445 1 Capsule(s) INH QD 08/27/2014 10/02/2014 Inactive gabapentin 600 mg tablet RxNorm: 188123 1 Tablet(s) PO BID 08/27/20 14 10/22/2014 Inactive Endocet 10 mg-325 mg tablet RxNorm: 8067606 1-2 Tablet(s) PO Q4H 09/17/2014 Inactive PRN PAIN fentanyl 100 mcg/hr transdermal patch RxNorm: 422833 1 Unit Dos e TD QD 08/21/2014 09/19/2014 Inactive Daliresp 500 mcg tablet RxNorm: 0671043 1 Tablet(s) PO QD 08/13/2014 02/11/2015 Inactive Synthroid 112 mcg tablet RxNorm: 746080 TAKE ONE TABLET BY MOUTH ONE TIME A DAY. NEEDS LABS 08/10/2014 09/10/2014 Inactive Endocet 10 mg-325 mg tablet RxNorm: 5196690 1-2 Tablet(s) PO Q4H 08/17/2014 Inactive PRN PAIN Duragesic 100 mcg/hr transdermal patch RxNorm: 637673 2 Application TD Q48H for pain 07/19/2014 09/17/2014 Inactive fluoxetine 40 mg capsule RxNorm: 068532 1 Capsule(s) PO QD 07/17/20 14 01/14/2015 Inactive TAKE ONE CAPSULE BY MOUTH EV JANKI MORNING fluoxetine 20 mg capsule RxNorm: 035770 1 Capsule(s) PO QD 07/17/20 14 01/14/2015 Inactive Spiriva with HandiHaler 18 mcg & inhalation capsules RxNorm: 902197 1 Capsule(s) INH QD 07/17/2014 08/26/2014 Inactive INHALE CONTENTS OF 1 CAPSULE(S) WITH HANDIHALER ONCE DAILY Zofran 4 mg tablet RxNorm: 903834 1 Tablet(s) PO Q4H prn nausea 07/25/2014 Inactive Synthroid 112 mcg tablet RxNorm: 046718 1 Tablet(s) PO QD 07/09/2014 07/09/2014 Inactive methocarbamol 750 mg tablet RxNorm: 104619 2 Tablet(s) PO TID as needed for muscle spasm 07/09/2014 09/06/2014 Inactive Synthroid 112 mcg tablet RxNorm: 930171 1 Tablet(s) PO QD - formerly [facility] labs 07/09/2014 08/07/2014 Inactive Medrol (Aníbal) 4 mg tablets in a dose pack RxNorm: 389466 6 Tablet(s) PO QD --then as directed 07/03/2014 07/08/2014 Inactive Tudorza Pressair 400 mcg/actuation breath activated RxNorm: 6220102 1 Puff(s) INH BID 07/03/2014 12/17/2014 Inactive cefdinir 300 mg capsule RxNorm: 660098 1 Capsule(s) PO BID 07/03/20 14 07/12/2014 Inactive Topamax 100 mg tablet RxNorm: 631371 Tablet(s) TAKE ONE TABLET BY MOUTH AT BEDTIME 07/02/2014 02/25/2015 Inactive Duragesic 100 mcg/hr transdermal patch RxNorm: 697729 2 Application TD Q48H for pain 06/25/2014 07/18/2014 Inactive Endocet 10 mg-325 mg tablet RxNorm: 5381485 1-2 Tablet(s) PO Q4H 07/18/2014 Inactive PRN PAIN metformin ER 500 mg tablet,extended release 24 hr RxNorm: 86 0975 1 Tablet(s) PO QD Needs labs 06/18/2014 07/01/2014 Inactive take one tablet by mouth every day Duragesic 100 mcg/hr transdermal patch RxNorm: 446299 2 Application TD Q48H for pain 05/22/2014 06/24/2014 Inactive Synthroid 112 mcg tablet RxNorm: 820868 1 Tablet(s) PO QD 05/22/2014 07/09/2014 Inactive Endocet 10 mg-325 mg tablet RxNorm: 7236960 1-2 Tablet(s) PO Q4H 06/20/2014 Inactive PRN PAIN Endocet 10 mg-325 mg tablet RxNorm: 0433336 1-2 Tablet(s) PO Q4H 05/21/2014 Inactive PRN PAIN Duragesic 100 mcg/hr transdermal patch RxNorm: 425956 2 Application TD Q48H for pain 04/25/2014 05/21/2014 Inactive Daliresp 500 mcg tablet RxNorm: 3683902 1 Tablet(s) PO QD 04/24/2014 08/13/2014 Inactive Symbicort 160 mcg-4.5 mcg/actuation HFA aerosol inhaler RxNo rm: 3945003 2 Puff(s) INH BID 04/24/2014 08/21/2014 Inactive INHALE 2 PUFFS O RALLY TWO TIMES A DAY metformin ER 500 mg tablet,extended release 24 hr RxNorm: 86 0975 1 Tablet(s) PO QD 04/24/2014 11/12/2014 Inactive TAKE ONE TABLET BY MOUTH EVERY DAY [AttnRPh:Saving Apply/Adjudicate RxGRP:LDMGRP RxBIN:[id number] RxPCN:2012 PCode:01 ID#:[id number]] Symbicort 160 mcg-4.5 mcg/actuation HFA aerosol inhaler RxNo rm: 7908274 2 Puff(s) INH BID 04/24/2014 11/12/2014 Inactive INHALE 2 PUFFS O RALLY TWO TIMES A DAY Premarin 0.9 mg tablet RxNorm: 789730 1 Tablet(s) PO QD 04/24/2014 Inactive TAKE ONE TABLET BY MOUTH EVERY DAY metformin ER 500 mg tablet,extended release 24 hr RxNorm: 86 0975 1 Tablet(s) PO QD Needs labs 04/24/2014 06/18/2014 Inactive TAKE ONE TABLET BY MOUTH EVERY DAY [AttnRPh:Saving Apply/Adjudicate RxGRP:LDMGRP RxBIN:[id number] RxPCN:2012 PCode:01 ID#:[id number]] gabapentin 800 mg tablet RxNorm: 958495 1 Tablet(s) PO QD 04/24/2014 10/04/2014 Inactive TAKE ONE TABLET BY MOUTH EVERY DAY Topamax 100 mg tablet RxNorm: 752791 1 Tablet(s) PO QHS 04/17/2014 Inactive Topamax 100 mg tablet RxNorm: 864824 TAKE ONE TABLET BY MOUTH A T BEDTIME 04/17/2014 07/01/2014 Inactive Tudorza Pressair 400 mcg/actuation breath activated RxNorm: 6360468 1 Puff(s) INH BID 04/11/2014 07/02/2014 Inactive Duragesic 100 mcg/hr transdermal patch RxNorm: 825191 2 Application TD Q48H for pain 03/27/2014 04/24/2014 Inactive Endocet 10 mg-325 mg tablet RxNorm: 9122183 1-2 Tablet(s) PO Q4H 04/24/2014 Inactive PRN PAIN Robaxin 750 mg tablet RxNorm: 695084 2 Tablet(s) PO TID as need ed for spasm 02/23/2014 03/28/2015 Inactive Duragesic 100 mcg/hr transdermal patch RxNorm: 418005 2 Application TD Q48H for pain 02/23/2014 No Stop Date Active Endocet 10 mg-325 mg tablet RxNorm: 5026431 1-2 Tablet(s) PO Q4H 03/23/2014 Inactive PRN PAIN Synthroid 112 mcg tablet RxNorm: 434928 1 Tablet(s) PO QD TAKE ONE TABLET BY MOUTH EVERY DAY 02/15/2014 05/22/2014 Inactive Zithromax 500 mg tablet RxNorm: 983678 1 Tablet(s) PO QD 01/30/2014 0 02/05/2014 Inactive Diflucan 100 mg tablet RxNorm: 431855 1 Tablet(s) PO QD 01/30/2014 Inactive prednisone 20 mg tablet RxNorm: 414891 1 Tablet(s) PO BID 01/30/2014 02/05/2014 Inactive fluoxetine 40 mg capsule RxNorm: 939642 1 Capsule(s) PO QD 01/23/20 14 07/16/2014 Inactive TAKE ONE CAPSULE BY MOUTH EV JANKI MORNING fluoxetine 40 mg capsule RxNorm: 557324 1 Capsule(s) PO QD 01/23/20 14 07/17/2014 Inactive TAKE ONE CAPSULE BY MOUTH EV JANKI MORNING cefdinir 300 mg capsule RxNorm: 827580 1 Capsule(s) PO BID 01/16/20 14 01/29/2014 Inactive Zithromax 500 mg tablet RxNorm: 851572 1 Tablet(s) PO QD 01/16/2014 0 01/22/2014 Inactive prednisone 20 mg tablet RxNorm: 103031 1 Tablet(s) PO BID 01/16/2014 01/22/2014 Inactive Spiriva with HandiHaler 18 mcg and inhalation capsules RxNor m: 895944 1 Capsule(s) INH QD 12/18/2013 07/17/2014 Inactive INHALE CONTENT S OF 1 CAPSULE(S) WITH HANDIHALER ONCE DAILY fluoxetine 20 mg capsule RxNorm: 252705 1 Capsule(s) PO QD 12/18/19 14 06/15/2014 Inactive Spiriva with HandiHaler 18 mcg & inhalation capsules RxNorm: 615349 1 Capsule(s) INH QD 12/18/2013 06/15/2014 Inactive INHALE CONTENTS OF 1 CAPSULE(S) WITH HANDIHALER ONCE DAILY fluoxetine 20 mg capsule RxNorm: 853647 1 Capsule(s) PO QD 12/18/19 14 07/17/2014 Inactive cefdinir 300 mg capsule RxNorm: 278749 2 Capsule(s) PO QD 12/12/2013 12/21/2013 Inactive Duragesic 100 mcg/hr transdermal patch RxNorm: 296890 2 Application TD Q48H for pain 12/08/2013 12/07/2013 Inactive Topamax 100 mg tablet RxNorm: 719405 1 Tablet(s) PO QHS 12/04/2013 Inactive Endocet 10 mg-325 mg tablet RxNorm: 0843269 1-2 Tablet(s) PO Q4H 12/26/2013 Inactive PRN PAIN Robaxin 750 mg tablet RxNorm: 852089 2 Tablet(s) PO TID as need ed for spasm 11/07/2013 01/05/2014 Inactive gabapentin 800 mg tablet RxNorm: 135987 1 Tablet(s) PO QD 10/16/2013 04/24/2014 Inactive TAKE ONE TABLET BY MOUTH EVERY DAY Symbicort 160 mcg-4.5 mcg/actuation HFA aerosol inhaler RxNo rm: 1894569 2 Puff(s) INH BID 10/16/2013 04/24/2014 Inactive INHALE 2 PUFFS O RALLY TWO TIMES A DAY Premarin 0.9 mg tablet RxNorm: 865599 1 Tablet(s) PO QD 10/16/2013 Inactive TAKE ONE TABLET BY MOUTH EVERY DAY metformin ER 500 mg tablet,extended release 24 hr RxNorm: 86 0975 1 Tablet(s) PO QD 10/16/2013 04/24/2014 Inactive TAKE ONE TABLET BY MOUTH EVERY DAY Daliresp 500 mcg tablet RxNorm: 5778523 1 Tablet(s) PO QD 10/16/2013 04/24/2014 Inactive Robaxin 750 mg tablet RxNorm: 675029 2 Tablet(s) PO TID as need ed for spasm 10/10/2013 11/06/2013 Inactive Duragesic 100 mcg/hr transdermal patch RxNorm: 488694 2 Application TD Q48H for pain 10/09/2013 No Stop Date Active Soma 350 mg tablet RxNorm: 177937 1 Tablet(s) PO TID 09/27/201310/09 Inactive TAKE ONE TABLET BY MOUTH THREE TIMES A D AY lactulose 10 gram/15 mL oral solution RxNorm: 467565 [address](s) PO QD 09/13/2013 03/07/2015 Inactive TAKE 1 TABLESPOON BY MOUTH ONCE DAILY Duragesic 100 mcg/hr transdermal patch RxNorm: 262489 2 Application TD Q48H for pain 09/06/2013 No Stop Date Active Endocet 10 mg-325 mg tablet RxNorm: 1193145 1-2 Tablet(s) PO Q4H 09/27/2013 Inactive PRN PAIN lancets 28 gauge RxNorm: Miscellaneous As needed for blo od glucose sticks 08/24/2013 No Stop Date Active 16.2 mg-0.1037 mg-0.0194 mg tablet RxNorm: 6664129 Tablet(s) PO PRN for gas and cramping 08/24/2013 01/19/2017 Inactive TAKE TWO TABLET S BY MOUTH THREE TIMES A DAY NEEDED FOR GAS AND CRAMPING Topamax 100 mg tablet RxNorm: 385146 1 Tablet(s) PO QHS 07/31/2013 Inactive Diflucan 100 mg tablet RxNorm: 277033 1 Tablet(s) PO QD 07/27/2013 Inactive cefdinir 300 mg capsule RxNorm: 639345 1 Capsule(s) PO BID 07/26/20 13 08/08/2013 Inactive Daliresp 500 mcg tablet RxNorm: 6751669 1 Tablet(s) PO QD 07/25/2013 10/15/2013 Inactive fluoxetine 40 mg capsule RxNorm: 440897 1 Capsule(s) PO QD 07/25/20 13 01/22/2014 Inactive TAKE ONE CAPSULE BY MOUTH EV JANKI MORNING Senokot-S 8.6 mg-50 mg tablet RxNorm: 0284102 1 Tablet(s) PO BID 10/25/2013 Inactive doxycycline hyclate 100 mg capsule RxNorm: 8368479 1 Capsule(s) PO BID 06/28/2013 07/07/2013 Inactive prednisone 20 mg tablet RxNorm: 457682 1 Tablet(s) PO BID 06/28/2013 07/04/2013 Inactive Zofran 4 mg tablet RxNorm: 698785 1 Tablet(s) PO Q4H prn nausea 03/201307/05/2013 Inactive Spiriva with HandiHaler 18 mcg & inhalation capsules RxNorm: 088799 1 Capsule(s) INH QD 06/26/2013 12/18/2013 Inactive INHALE CONTENTS OF 1 CAPSULE(S) WITH HANDIHALER ONCE DAILY Synthroid 112 mcg tablet RxNorm: 096707 1 Tablet(s) PO QD TAKE ONE TABLET BY MOUTH EVERY DAY 06/19/2013 02/15/2014 Inactive fluoxetine 20 mg capsule RxNorm: 408719 1 Capsule(s) PO QD 06/19/20 13 12/18/2013 Inactive Ventolin HFA 90 mcg/actuation Aerosol Inhaler RxNorm: 3670850 2 Puff(s) INH Q4H 06/05/2013 No Stop Date Active prn Soma 350 mg tablet RxNorm: 076454 1 Tablet(s) PO TID 06/05/201307/04 Inactive TAKE ONE TABLET BY MOUTH THREE TIMES A D AY prednisone 20 mg tablet RxNorm: 221972 1 Tablet(s) PO QD 05/31/2013 0 06/06/2013 Inactive Topamax 100 mg tablet RxNorm: 457999 1 Tablet(s) PO QHS 05/22/2013 Inactive Levaquin 500 mg tablet RxNorm: 642648 1 Tablet(s) PO QD 05/03/2013 Inactive Diflucan 100 mg tablet RxNorm: 780360 1 Tablet(s) PO QD 05/03/2013 Inactive Daliresp 500 mcg tablet RxNorm: 0937217 1 Tablet(s) PO QD 05/01/2013 07/24/2013 Inactive Daliresp 500 mcg tablet RxNorm: 2786714 1 Tablet(s) PO QD 05/01/2013 04/30/2013 Inactive gabapentin 800 mg tablet RxNorm: 648715 1 Tablet(s) PO QD 04/10/2013 10/06/2013 Inactive TAKE ONE TABLET BY MOUTH EVERY DAY metformin ER 500 mg tablet,extended release 24 hr RxNorm: 86 0977 1 Tablet(s) PO QD 04/10/2013 10/06/2013 Inactive TAKE ONE TABLET BY MOUTH EVERY DAY Premarin 0.9 mg tablet RxNorm: 172844 1 Tablet(s) PO QD 04/10/2013 Inactive TAKE ONE TABLET BY MOUTH EVERY DAY Symbicort 160 mcg-4.5 mcg/actuation HFA aerosol inhaler RxNo rm: 7434475 2 Puff(s) INH BID 04/10/2013 10/06/2013 Inactive INHALE 2 PUFFS O RALLY TWO TIMES A DAY Synthroid 112 mcg tablet RxNorm: 476264 1 Tablet(s) PO QD TAKE ONE TABLET BY MOUTH EVERY DAY 04/10/2013 06/18/2013 Inactive Ventolin HFA 90 mcg/actuation Aerosol Inhaler RxNorm: 055282 2 Puff(s) INH Q4H 04/10/2013 No Stop Date Active prn fentanyl 100 mcg/hr transdermal patch RxNorm: 783672 1 Unit Dos e TD QD 04/03/2013 05/02/2013 Inactive Endocet 10 mg-325 mg tablet RxNorm: 9434121 1-2 Tablet(s) PO Q4H 05/02/2013 Inactive PRN PAIN Topamax 100 mg tablet RxNorm: 646694 1 Tablet(s) PO QHS 03/13/2013 Inactive Reglan 10 mg tablet RxNorm: 169663 1 Tablet(s) PO QID b efore meals and at bedtime 03/13/2013 04/09/2015 Inactive fluoxetine 20 mg capsule RxNorm: 084454 1 Capsule(s) PO QD 02/28/20 13 05/27/2013 Inactive Ventolin HFA 90 mcg/actuation Aerosol Inhaler RxNorm: 385335 2 Puff(s) INH Q4H 02/13/2013 No Stop Date Active prn fluoxetine 40 mg capsule RxNorm: 538903 1 Capsule(s) PO QD 01/31/20 13 07/24/2013 Inactive TAKE ONE CAPSULE BY MOUTH EV JANKI MORNING Soma 350 mg tablet RxNorm: 590065 1 Tablet(s) PO TID 01/20/201302/18 Inactive TAKE ONE TABLET BY MOUTH THREE TIMES A D AY Endocet 10 mg-325 mg tablet RxNorm: 7490780 1-2 Tablet(s) PO Q4H 02/06/2013 Inactive PRN PAIN MS Contin 200 mg tablet,extended release RxNorm: 353654 1 Table t(s) PO BID 01/18/2013 02/06/2013 Inactive Ventolin HFA 90 mcg/actuation Aerosol Inhaler RxNorm: 824238 2 Puff(s) INH Q4H 01/04/2013 No Stop Date Active prn Spiriva with HandiHaler 18 mcg & inhalation capsules RxNorm: 165205 1 Capsule(s) INH QD 12/29/2012 06/25/2013 Inactive INHALE CONTENTS OF 1 CAPSULE(S) WITH HANDIHALER ONCE DAILY Spiriva with HandiHaler 18 mcg & inhalation capsules RxNorm: 380104 1 Capsule(s) INH QD 12/26/2012 12/28/2012 Inactive INHALE CONTENTS OF 1 CAPSULE(S) WITH HANDIHALER ONCE DAILY Synthroid 112 mcg tablet RxNorm: 278294 Tablet(s) PO TA KE ONE TABLET BY MOUTH EVERY DAY 12/26/2012 04/09/2013 Inactive Endocet 10 mg-325 mg tablet RxNorm: 5972852 1-2 Tablet(s) PO Q4H 01/17/2013 Inactive PRN PAIN MS Contin 200 mg tablet,extended release RxNorm: 499164 1 Table t(s) PO BID 12/21/2012 01/17/2013 Inactive fluoxetine 20 mg capsule RxNorm: 000719 1 Capsule(s) PO QD 12/06/19 13 02/26/2013 Inactive Synthroid 112 mcg tablet RxNorm: 272169 1 Tablet(s) PO QD 12/06/2012 02/12/2019 Inactive TAKE ONE TABLET BY MOUTH EVERY DAY Ventolin HFA 90 mcg/actuation Aerosol Inhaler RxNorm: 875612 2 Puff(s) INH Q4H 12/06/2012 No Stop Date Active prn Reglan 10 mg tablet RxNorm: 354671 1 Tablet(s) PO QID b efore meals and at bedtime 11/24/2012 03/12/2013 Inactive Topamax 100 mg tablet RxNorm: 407560 1 Tablet(s) PO QHS 11/16/2012 Inactive Ventolin HFA 90 mcg/actuation Aerosol Inhaler RxNorm: 374281 2 Puff(s) INH Q4H 11/09/2012 No Stop Date Active prn gabapentin 800 mg tablet RxNorm: 571831 1 Tablet(s) PO QD 10/27/2012 04/09/2013 Inactive TAKE ONE TABLET BY MOUTH EVERY DAY metformin ER 500 mg tablet,extended release 24 hr RxNorm: 86 0977 1 Tablet(s) PO QD 10/27/2012 04/09/2013 Inactive TAKE ONE TABLET BY MOUTH EVERY DAY Symbicort 160 mcg-4.5 mcg/actuation HFA Aerosol Inhaler RxNo rm: 4180381 2 Puff(s) INH BID 10/27/2012 04/09/2013 Inactive INHALE 2 PUFFS O RALLY TWO TIMES A DAY Premarin 0.9 mg tablet RxNorm: 335014 1 Tablet(s) PO QD 10/27/2012 Inactive TAKE ONE TABLET BY MOUTH EVERY DAY Endocet 10 mg-325 mg tablet RxNorm: 5538314 1-2 Tablet(s) PO Q4H 11/24/2012 Inactive PRN PAIN MS Contin 200 mg tablet,extended release RxNorm: 249869 1 Table t(s) PO BID 10/26/2012 11/24/2012 Inactive Soma 350 mg tablet RxNorm: 155938 1 Tablet(s) PO TID 10/04/201211/02 Inactive TAKE ONE TABLET BY MOUTH THREE TIMES A D AY Ventolin HFA 90 mcg/actuation Aerosol Inhaler RxNorm: 262385 2 Puff(s) INH Q4H 10/03/2012 No Stop Date Active prn Daliresp 500 mcg tablet RxNorm: 4809342 1 Tablet(s) PO QD 09/28/2012 09/27/2012 Inactive Daliresp 500 mcg tablet RxNorm: 6707738 1 Tablet(s) PO QD 09/28/2012 04/25/2013 Inactive fluoxetine 20 mg capsule RxNorm: 887003 1 Capsule(s) PO QD 09/05/20 12 12/06/2012 Inactive Topamax 50 mg tablet RxNorm: 399631 Tablet(s) PO for 1w k then 1 po q HS for 1wk then 2 po q HS 08/29/2012 09/27/2012 Inactive TAKE 1/2 TABLET BY MOUTH AT BEDTIME FOR 1 WEEK, THEN 1 TABLET AT BEDTIME FOR 1 WEEK, THEN 2 TABLETS AT BEDTIME Topamax 100 mg tablet RxNorm: 302871 1 Tablet(s) PO QHS 08/29/2012 Inactive Ventolin HFA 90 mcg/actuation Aerosol Inhaler RxNorm: 469561 2 Puff(s) INH Q4H 08/19/2012 No Stop Date Active prn Ventolin HFA 90 mcg/actuation Aerosol Inhaler RxNorm: 012466 2 Puff(s) INH Q4H 08/15/2012 No Stop Date Active prn Synthroid 112 mcg tablet RxNorm: 204067 1 Tablet(s) PO QD 08/10/2012 11/07/2012 Inactive TAKE ONE TABLET BY MOUTH EVERY DAY Synthroid 112 mcg tablet RxNorm: 704163 1 Tablet(s) PO QD 08/01/2012 08/09/2012 Inactive TAKE ONE TABLET BY MOUTH EVERY DAY Reglan 10 mg tablet RxNorm: 095368 1 Tablet(s) PO QID b efore meals and at bedtime 08/01/2012 11/23/2012 Inactive fluoxetine 40 mg capsule RxNorm: 010959 1 Capsule(s) PO QD 08/01/2001/27/2013 Inactive TAKE ONE CAPSULE BY MOUTH EV JANKI MORNING Ventolin HFA 90 mcg/actuation Aerosol Inhaler RxNorm: 228538 2 Puff(s) INH Q4H 08/01/2012 No Stop Date Active prn Soma 350 mg tablet RxNorm: 673145 1 Tablet(s) PO TID 07/20/201208/18 Inactive TAKE ONE TABLET BY MOUTH THREE TIMES A D AY Spiriva with HandiHaler 18 mcg & inhalation capsules RxNorm: 375030 1 Capsule(s) INH 07/01/2012 12/25/2012 Inactive INHALE CONTENTS OF 1 CAPSULE(S) WITH HANDIHALER ONCE DAILY Zithromax 250 mg Tab RxNorm: 518845 2 Tablet(s) PO QD 06/28/201206/22 Inactive MS Contin 200 mg tablet,extended release RxNorm: 612516 1 Table t(s) PO BID 06/28/2012 07/27/2012 Inactive Endocet 10 mg-325 mg tablet RxNorm: 9971986 1-2 Tablet(s) PO Q4H 07/27/2012 Inactive PRN PAIN Topamax 100 mg tablet RxNorm: 605165 1 Tablet(s) PO QHS 06/28/2012 Inactive 16.2 mg-0.1037 mg-0.0194 mg tablet RxNorm: 1569213 Tablet(s) PO PRN for gas and cramping 06/08/2012 08/23/2013 Inactive TAKE TWO TABLET S BY MOUTH THREE TIMES A DAY NEEDED FOR GAS AND CRAMPING Ventolin HFA 90 mcg/actuation Aerosol Inhaler RxNorm: 476596 2 Puff(s) INH Q4H 05/23/2012 No Stop Date Active prn Ventolin HFA 90 mcg/actuation Aerosol Inhaler RxNorm: 918207 2 Puff(s) INH Q4H 05/11/2012 No Stop Date Active prn Synthroid 112 mcg tablet RxNorm: 069609 1 Tablet(s) PO QD 05/09/2012 07/31/2012 Inactive TAKE ONE TABLET BY MOUTH EVERY DAY gabapentin 800 mg tablet RxNorm: 952557 1 Tablet(s) PO QD 05/09/2012 10/26/2012 Inactive TAKE ONE TABLET BY MOUTH EVERY DAY fluoxetine 40 mg capsule RxNorm: 586903 1 Capsule(s) PO QD 05/09/2007/31/2012 Inactive TAKE ONE CAPSULE BY MOUTH EV JANKI MORNING metformin ER 500 mg tablet,extended release 24 hr RxNorm: 86 0977 1 Tablet(s) PO QD 05/09/2012 10/26/2012 Inactive TAKE ONE TABLET BY MOUTH EVERY DAY Premarin 0.9 mg tablet RxNorm: 540675 1 Tablet(s) PO QD 05/09/2012 Inactive TAKE ONE TABLET BY MOUTH EVERY DAY Symbicort 160 mcg-4.5 mcg/actuation HFA Aerosol Inhaler RxNo rm: 4241531 2 Puff(s) INH BID 05/09/2012 10/26/2012 Inactive INHALE 2 PUFFS O RALLY TWO TIMES A DAY Endocet 10 mg-325 mg Tab RxNorm: 1991185 1-2 Tablet(s) PO Q4H 04/2705/26/2012 Inactive PRN PAIN MS Contin 200 mg Tab RxNorm: 324854 1 Tablet(s) PO BID 04/26/201202/2012 Inactive Ventolin HFA 90 mcg/actuation Aerosol Inhaler RxNorm: 897478 2 Puff(s) INH Q4H 04/25/2012 05/10/2012 Inactive prn Soma 350 mg tablet RxNorm: 302305 2 Tablet(s) PO TID 04/19/201207/19 Inactive TAKE ONE TABLET BY MOUTH THREE TIMES A D AY Ventolin HFA 90 mcg/actuation Aerosol Inhaler RxNorm: 668929 2 Puff(s) INH Q4H 04/12/2012 04/24/2012 Inactive prn Reglan 10 mg tablet RxNorm: 528849 1 Tablet(s) PO QID b efore meals and at bedtime 04/11/2012 07/31/2012 Inactive MS Contin 200 mg Tab RxNorm: 917346 1 Tablet(s) PO BID 03/30/201202/2012 Inactive Endocet 10 mg-325 mg Tab RxNorm: 0815272 1-2 Tablet(s) PO Q4H 03/3004/26/2012 Inactive PRN PAIN MS Contin 200 mg Tab RxNorm: 587903 1 Tablet(s) PO BID 03/02/201206/2012 Inactive Endocet 10 mg-325 mg Tab RxNorm: 6281469 1-2 Tablet(s) PO Q4H 03/0203/29/2012 Inactive PRN PAIN Daliresp 500 mcg tablet RxNorm: 4438200 1 Tablet(s) PO QD 03/01/2012 09/28/2012 Inactive MS Contin 200 mg Tab RxNorm: 215213 1 Tablet(s) PO BID 02/02/201208/2012 Inactive Endocet 10 mg-325 mg Tab RxNorm: 6695985 1-2 Tablet(s) PO Q4H 02/0103/01/2012 Inactive PRN PAIN fluoxetine 40 mg capsule RxNorm: 119156 1 Capsule(s) PO QD 02/02/2008/01/2012 Inactive TAKE ONE CAPSULE BY MOUTH EV JANKI MORNING Synthroid 112 mcg Tab RxNorm: 642751 1 Tablet(s) PO QD 01/18/2012 Inactive TAKE ONE TABLET BY MOUTH EVERY DAY lactulose 10 gram/15 mL oral solution RxNorm: 022372 [address]s) PO QD 01/18/2012 No Stop Date Active TAKE 1 TABLESPOON BY MOUTH ONCE DAILY Ventolin HFA 90 mcg/actuation Aerosol Inhaler RxNorm: 800448 2 Puff(s) INH Q4H 01/18/2012 04/11/2012 Inactive prn MS Contin 200 mg Tab RxNorm: 135393 1 Tablet(s) PO BID 01/05/201210/2012 Inactive Endocet 10 mg-325 mg Tab RxNorm: 4024009 1-2 Tablet(s) PO Q4H 01/0502/01/2012 Inactive PRN PAIN ProAir HFA 90 mcg/Actuation Aerosol Inhaler RxNorm: 239704 2 Pu ff(s) INH Q4H 12/21/2011 No Stop Date Active prn for wheezing or shortness of breath Spiriva with HandiHaler 18 mcg & inhalation Caps RxNorm: 580 261 1 Capsule(s) INH 12/21/2011 06/30/2012 Inactive INHALE CONTENTS OF 1 CAPSULE(S) WITH HANDIHALER ONCE DAILY Reglan 10 mg Tab RxNorm: 547344 1 Tablet(s) PO QID before meals and at bedtime 12/21/2011 04/10/2012 Inactive Synthroid 112 mcg Tab RxNorm: 401008 1 Tablet(s) PO QD 12/21/2011 Inactive TAKE ONE TABLET BY MOUTH EVERY DAY Endocet 10 mg-325 mg Tab RxNorm: 9178965 1-2 Tablet(s) PO Q4H 11/2512/24/2011 Inactive PRN PAIN MS Contin 200 mg Tab RxNorm: 669265 1 Tablet(s) PO BID 11/25/201112/2011 Inactive lactulose 10 gram/15 mL Oral Soln RxNorm: 250150 Milliliter(s) PO 1 No Stop Date Active TAKE 1 TABLESPOON BY MOUTH O NCE DAILY lactulose 10 gram/15 mL Oral Soln RxNorm: 839402 Milliliter(s) PO 1 12/12/2010 11/20/2011 Inactive TAKE 1 TABLESPOON BY MOUTH O NCE DAILY Premarin 0.9 mg Tab RxNorm: 324200 1 Tablet(s) PO QD 10/12/201105/08 Inactive TAKE ONE TABLET BY MOUTH EVERY DAY fluoxetine 20 mg capsule RxNorm: 069838 1 Capsule(s) PO QD 10/12/2009/05/2012 Inactive TAKE ONE CAPSULE BY MOUTH EV JANKI DAY Synthroid 112 mcg Tab RxNorm: 568442 1 Tablet(s) PO QD 10/12/2011 Inactive TAKE ONE TABLET BY MOUTH EVERY DAY metformin ER 500 mg 24 hr Tab RxNorm: 575290 1 Tablet(s) PO QD 09/2311/10/2011 Inactive TAKE ONE TABLET BY MOUTH GLYNN RY DAY Synthroid 112 mcg Tab RxNorm: 362611 1 Tablet(s) PO QD 10/12/2011 Inactive TAKE ONE TABLET BY MOUTH EVERY DAY metformin ER 500 mg 24 hr Tab RxNorm: 680778 1 Tablet(s) PO QD 09/2310/11/2011 Inactive TAKE ONE TABLET BY MOUTH GLYNN RY DAY Prevacid 30 mg Cap RxNorm: 882205 Capsule(s) PO 10/12/2011 01/25/2012 Inactive TAKE ONE CAPSULE BY MOUTH EVERY DAY Symbicort 160 mcg-4.5 mcg/actuation HFA Aerosol Inhaler RxNo rm: 1527468 2 Puff(s) INH BID 10/12/2011 05/08/2012 Inactive INHALE 2 PUFFS O RALLY TWO TIMES A DAY gabapentin 800 mg Tab RxNorm: 325355 1 Tablet(s) PO QD 10/12/2011 Inactive TAKE ONE TABLET BY MOUTH EVERY DAY MS Contin 200 mg Tab RxNorm: 305406 1 Tablet(s) PO BID 09/23/201111/2010 Inactive Endocet 10 mg-325 mg Tab RxNorm: 2682153 1-2 Tablet(s) PO Q4H 09/2310/22/2011 Inactive PRN PAIN Endocet 10 mg-325 mg Tab RxNorm: 0085279 1-2 Tablet(s) PO Q4H 08/2109/19/2011 Inactive PRN PAIN MS Contin 200 mg Tab RxNorm: 627209 1 Tablet(s) PO BID 08/21/2011 Inactive Diflucan 100 mg Tab RxNorm: 105075 1 Tablet(s) PO QD 08/10/201108/16 Inactive cefdinir 300 mg Cap RxNorm: 569969 2 Capsule(s) PO QD 08/10/201107/24 Inactive Reglan 10 mg Tab RxNorm: 850419 1 Tablet(s) PO AC & HS 07/15/2011 Inactive Endocet 10 mg-325 mg Tab RxNorm: 8132710 1-2 Tablet(s) PO Q4H 07/1508/13/2011 Inactive PRN PAIN One Touch Ultra Test strips RxNorm: Miscellaneous BID 06/11/201101/16/2014 Inactive TEST TWO TIMES A DAY lactulose 10 gram/15 mL Oral Soln RxNorm: 022784 Milliliter(s) PO 0 06/10/2011 10/11/2011 Inactive TAKE 1 TABLESPOON BY MOUTH O NCE DAILY Chantix Continuing Month Aníbal 1 mg Tab RxNorm: 346862 Tablet(s) PO 0 06/10/2011 11/02/2011 Inactive TAKE DIRECTED - PER [employer] GE INSTRUCTIONS fluoxetine 40 mg Cap RxNorm: 248460 Capsule(s) PO 06/10/2011 02/02/20 12 Inactive TAKE ONE CAPSULE BY MOUTH EVERY MORNING Chantix Continuing Month Aníbal 1 mg Tab RxNorm: 863369 Ta blet(s) PO TAKE DIRECTED - PER PACKAGE INSTRUCTIONS 05/13/2011 06/09/2011 Inactive Soma 350 mg Tab RxNorm: 285531 Tablet(s) PO TAKE ON E TABLET BY MOUTH THREE TIMES A DAY 05/13/2011 04/18/2012 Inactive Chantix Continuing Month Aníbal 1 mg Tab RxNorm: 435516 Ta blet(s) PO as directed per package instructions. 04/22/2011 05/12/2011 Inactive Symbicort 160 mcg-4.5 mcg/Actuation HFA Aerosol Inhaler RxNo rm: [id number] HFA Aerosol Inhaler INH INHALE 2 PUFFS ORALLY TWO TIMES A DAY 04/13/2011 Inactive Synthroid 112 mcg Tab RxNorm: 630526 Tablet(s) PO TAKE ONE TABLET BY MOUTH EVERY DAY 04/13/2011 10/12/2011 Inactive Premarin 0.9 mg Tab RxNorm: 876178 Tablet(s) PO TAKE ON E TABLET BY MOUTH EVERY DAY 04/13/2011 10/12/2011 Inactive gabapentin 800 mg Tab RxNorm: 089307 Tablet(s) PO TAKE ONE TABLET BY MOUTH EVERY DAY 04/13/2011 10/12/2011 Inactive Prevacid 30 mg Cap RxNorm: 964680 1 Capsule(s) PO QD 04/13/201110/11 Inactive Spiriva with HandiHaler 18 mcg & inhalation Caps RxNorm: 580 261 Capsule(s) INH INHALE CONTENTS OF 1 CAPSULE(S) WITH HANDIHALER ONCE DAILY 04/13/2011 12/21/2011 Inactive metformin ER 500 mg 24 hr Tab RxNorm: 648904 Tablet(s) PO TAKE ONE TABLET BY MOUTH EVERY DAY 04/13/2011 10/12/2011 Inactive Soma 350 mg Tab RxNorm: 137261 1 Tablet(s) PO QID 03/30/2011 02/13/20 19 Inactive fluoxetine 20 mg Cap RxNorm: 182405 Capsule(s) PO TAKE ONE CAPSULE BY MOUTH EVERY DAY 03/25/2011 10/12/2011 Inactive cefdinir 300 mg Cap RxNorm: 209360 2 Capsule(s) PO QD 03/19/201105/2011 Inactive 16.2 mg-0.1037 mg-0.0194 mg Tab RxNorm: 6586837 2 Tablet(s) PO TID PRN for gas and cramping 03/16/2011 07/13/2011 Inactive Soma 350 mg Tab RxNorm: 752197 2 Tablet(s) PO TID 03/16/2011 03/29/20 11 Inactive Chantix Starting Month Aníbal 0.5 mg (11)-1 mg (3x14) Tab s in a Dose Pack RxNorm: 189841 Tablet(s) PO as directed 03/02/2011 No Stop Date Active diazepam 10 mg Tab RxNorm: 034169 1 Tablet(s) PO BID 02/10/201101/19 Inactive Zofran 4 mg tablet RxNorm: 916950 1 Tablet(s) PO Q4H prn nausea 02/16/2011 Inactive Diflucan 100 mg Tab RxNorm: 575388 1 Tablet(s) PO QD 01/18/201101/24 Inactive Premarin 0.625 mg/g Vaginal Cream RxNorm: 041229 VAG In sert 1gm vaginally at bedtime 3 times weekly 01/18/2011 02/12/2019 Inactive loratadine 10 mg Tab RxNorm: 5422397 1 Tablet(s) PO QD 12/17/201003/2012 Inactive Spiriva with HandiHaler 18 mcg & inhalation Caps RxNorm: 580 261 1 Capsule(s) INH QD 12/17/2010 04/12/2011 Inactive Diflucan 100 mg Tab RxNorm: 618204 1 Tablet(s) PO QD 12/17/201012/23 Inactive diazepam 10 mg Tab RxNorm: 050375 1 Tablet(s) PO BID and PRN 201002/12/2019 Inactive One Touch Ultra Test Strips RxNorm: InVt BID Zainab t blood sugar at least twice daily. 11/11/2010 06/11/2011 Inactive fluoxetine 40 mg Cap RxNorm: 328014 1 Capsule(s) PO QAM 11/11/2010 Inactive diazepam 10 mg Tab RxNorm: 735094 1 Tablet(s) PO BID and PRN 200911/12/2010 Inactive Bactrim DS 800 mg-160 mg Tab RxNorm: 202558 1 Tablet(s) PO BID 09/2210/15/2010 Inactive fluoxetine 20 mg Cap RxNorm: 216079 1 Capsule(s) PO QD 10/02/201008/2011 Inactive Bactrim DS 800 mg-160 mg Tab RxNorm: 099318 1 Tablet(s) PO BID 01/201010/03/2010 Inactive Zofran 4 mg Tab RxNorm: 909263 1 Tablet(s) PO Q4H prn nausea 200910/16/2010 Inactive 16.2 mg-0.1037 mg-0.0194 mg Tab RxNorm: 0489819 2 Tablet(s) PO TID PRN for gas and cramping 09/17/2010 10/21/2010 Inactive Gabapentin 800 mg Tab RxNorm: 498499 1 Tablet(s) PO QD 09/16/2010 Inactive ProAir HFA 90 mcg/Actuation Aerosol Inhaler RxNorm: 953142 2 Puff(s) INH Q4H prn shortness of breath 09/15/2010 12/13/2010 Inactive gabapentin 800 mg Tab RxNorm: 864642 1 Tablet(s) PO QD 09/15/2010 Inactive Prevacid 30 mg Cap RxNorm: 022396 1 Capsule(s) PO QD 09/15/201004/12 Inactive loratadine 10 mg Tab RxNorm: 8828730 1 Tablet(s) PO QD 09/15/2010 Inactive Premarin 0.9 mg Tab RxNorm: 438413 1 Tablet(s) PO QD 09/15/201004/12 Inactive Synthroid 112 mcg Tab RxNorm: 057425 1 Tablet(s) PO QD 09/15/2010 Inactive metformin ER 500 mg 24 hr Tab RxNorm: 990876 1 Tablet(s) PO QD 08/2304/12/2011 Inactive Symbicort 160 mcg-4.5 mcg/Actuation Inhalation HFA Aer osol Inhaler RxNorm: 5848477 2 Puff(s) INH BID 09/15/2010 04/12/2011 Inactive diazepam 10 mg Tab RxNorm: 526988 1 Tablet(s) PO BID and PRN 200910/13/2010 Inactive Phentermine 37.5 mg Cap RxNorm: 595744 1 Capsule(s) PO QD 09/02/2010 11/02/2011 Inactive ProAir HFA 90 mcg/Actuation Aerosol Inhaler RxNorm: 942506 2 Puff(s) INH Q4H prn shortness of breath 08/07/2010 No Stop Date Active Premarin 0.9 mg Tab RxNorm: 903555 1 Tablet(s) PO QD 08/07/201009/14 Inactive Loratadine 10 mg Tab RxNorm: 9076660 1 Tablet(s) PO QD 08/07/2010 Inactive Lactulose 10 gram/15 mL Oral Soln RxNorm: 516083 1 Unit Dose PO QD 08/07/2010 02/12/2019 Inactive Zofran 4 mg Tab RxNorm: 553751 1 Tablet(s) PO Q4H prn nausea 2009 No Stop Date Active Gabapentin 800 mg Tab RxNorm: 170115 1 Tablet(s) PO QD 08/07/2010 Inactive Synthroid 112 mcg Tab RxNorm: 593125 1 Tablet(s) PO QD 08/07/2010 Inactive Metformin ER 500 mg 24 hr Tab RxNorm: 887697 1 Tablet(s) PO QD 07/2309/14/2010 Inactive Vitamin D 1,000 unit Tab RxNorm: 916346 1 Tablet(s) PO TID 08/07/20 10 02/12/2019 Inactive Symbicort 160 mcg-4.5 mcg/Actuation Inhalation HFA Aer osol Inhaler RxNorm: 4656985 2 Puff(s) INH BID 08/07/2010 09/14/2010 Inactive Prevacid 30 mg Cap RxNorm: 188470 1 Capsule(s) PO QD 08/07/201009/14 Inactive Metformin ER 500 mg 24 hr Tab RxNorm: 982362 1 Tablet(s) PO QD 06/2308/06/2010 Inactive Vitamin D 1,000 unit Tab RxNorm: 503111 1 Tablet(s) PO TID 07/14/20 10 08/06/2010 Inactive Synthroid 112 mcg Tab RxNorm: 364140 1 Tablet(s) PO QD 07/14/2010 Inactive Lactulose 10 gram/15 mL Oral Soln RxNorm: 813131 1 Unit Dose PO QD 07/14/2010 08/06/2010 Inactive Levaquin 500 mg Tab RxNorm: 151431 1 Tablet(s) PO QD 07/14/201007/27 Inactive Premarin 0.9 mg Tab RxNorm: 662088 1 Tablet(s) PO QD 07/14/201008/06 Inactive ProAir HFA 90 mcg/Actuation Aerosol Inhaler RxNorm: 836398 2 Puff(s) INH Q4H prn shortness of breath 07/14/2010 No Stop Date Active Prevacid 30 mg Cap RxNorm: 800416 1 Capsule(s) PO QD 07/14/201008/06 Inactive Zofran 4 mg Tab RxNorm: 261414 1 Tablet(s) PO Q4H prn nausea 2009 No Stop Date Active Symbicort 160 mcg-4.5 mcg/Actuation Inhalation HFA Aer osol Inhaler RxNorm: 6069322 2 Puff(s) INH BID 07/14/2010 08/06/2010 Inactive Loratadine 10 mg Tab RxNorm: 0558421 1 Tablet(s) PO QD 07/14/2010 Inactive Gabapentin 800 mg Tab RxNorm: 839430 1 Tablet(s) PO QD 07/14/2010 Inactive Metformin ER 500 mg 24 hr Tab RxNorm: 239187 1 Tablet(s) PO 010 07/13/2010 Inactive Diazepam 10 mg Tab RxNorm: 578964 1 Tablet(s) PO BID and PRN 200909/06/2010 Inactive Premarin 0.9 mg Tab RxNorm: 502051 1 Tablet(s) PO QD 06/09/201007/13 Inactive Zofran 4 mg Tab RxNorm: 958412 1 Tablet(s) PO Q4H prn nausea 2009 No Stop Date Active ProAir HFA 90 mcg/Actuation Aerosol Inhaler RxNorm: 328203 2 Puff(s) INH Q4H prn shortness of breath 06/09/2010 No Stop Date Active Gabapentin 800 mg Tab RxNorm: 233602 1 Tablet(s) PO QD 06/09/2010 Inactive Loratadine 10 mg Tab RxNorm: 4589058 1 Tablet(s) PO QD 06/09/2010 Inactive Lactulose 10 gram/15 mL Oral Soln RxNorm: 281268 1 Unit Dose PO QD 06/09/2010 07/13/2010 Inactive Prevacid 30 mg Cap RxNorm: 481431 1 Capsule(s) PO QD 06/09/201007/13 Inactive Synthroid 112 mcg Tab RxNorm: 133703 1 Tablet(s) PO QD 06/09/2010 Inactive Symbicort 160 mcg-4.5 mcg/Actuation Inhalation HFA Aer osol Inhaler RxNorm: 3041523 2 Puff(s) INH BID 06/09/2010 07/13/2010 Inactive Omnicef 300 mg Cap RxNorm: 302565 2 Capsule(s) PO QD 05/07/201005/20 Inactive Metformin 500 mg Tab RxNorm: 207436 1 Tablet(s) PO QD 05/06/201005/22 Inactive ProAir HFA 90 mcg/Actuation Aerosol Inhaler RxNorm: 241861 2 Puff(s) INH Q4H prn shortness of breath 05/06/2010 No Stop Date Active lactulose 10 gram/15 mL Oral Soln RxNorm: 179978 1 Unit Dose PO QD 05/06/2010 06/10/2011 Inactive Loratadine 10 mg Tab RxNorm: 8183582 1 Tablet(s) PO QD 05/06/2010 Inactive Synthroid 112 mcg Tab RxNorm: 868697 1 Tablet(s) PO QD 05/06/2010 Inactive Symbicort 160 mcg-4.5 mcg/Actuation Inhalation HFA Aer osol Inhaler RxNorm: 7268732 2 Puff(s) INH BID 05/06/2010 06/08/2010 Inactive Gabapentin 800 mg Tab RxNorm: 155253 1 Tablet(s) PO QD 05/06/2010 Inactive 16.2 mg-0.1037 mg-0.0194 mg Tab RxNorm: 7643016 2 Tablet(s) PO TID PRN for gas and cramping 05/06/2010 05/12/2010 Inactive Zofran 4 mg Tab RxNorm: 412879 1 Tablet(s) PO Q4H prn nausea 200904/13/2010 Inactive MS Contin 60 mg tablet,extended release RxNorm: 904514 3 Tablet (s) PO BID 04/09/2010 05/08/2010 Inactive Soma 350 mg Tab RxNorm: 395688 2 Tablet(s) PO TID 04/09/2010 05/08/20 10 Inactive Symbicort 160 mcg-4.5 mcg/Actuation Inhalation HFA Aer osol Inhaler RxNorm: 0319287 2 Puff(s) INH BID 04/08/2010 05/05/2010 Inactive Doxycycline 100 mg Cap RxNorm: 8048314 1 Capsule(s) PO BID 04/08/20 10 04/17/2010 Inactive Triamterene-Hydrochlorothiazide 37.5 mg-25 mg Cap RxNorm: 19 8316 1 Capsule(s) PO QAM 04/08/2010 09/04/2010 Inactive fluoxetine 40 mg Cap RxNorm: 459623 1 Capsule(s) PO QAM 04/08/2010 Inactive Morphine SR 120 mg multiphase 24 hr Cap RxNorm: 863616 1 Capsul e(s) PO 03/11/2010 04/07/2010 Inactive Endocet 10 mg-325 mg Tab RxNorm: 6207322 1-2 Tablet(s) PO Q4H MD N PAIN 03/11/2010 04/09/2010 Inactive Savella 100 mg Tab RxNorm: 354545 1 Tablet(s) PO BID 03/10/201004/09 Inactive Soma 350 mg Tab RxNorm: 505350 1 Tablet(s) PO TID prn spasm 010 04/09/2010 Inactive Savella 100 mg Tab RxNorm: 748192 1 Tablet(s) PO BID 02/03/201004/09 Inactive Aspirin 81 mg Tab RxNorm: 926005 1 Tablet(s) PO QD No Start Date Active Zyrtec 10 mg Tab RxNorm: 5402595 1 Tablet(s) PO QD No Start Date Active One Touch Ultra Test Strips RxNorm: Misc test at least t wice daily. No Start Date Active coenzyme Q10 200 mg capsule RxNorm: 768555 1 Capsule(s) PO QD No Star t Date Active One Touch Ultra Test Strips RxNorm: InVt BID Zainab t blood sugar at least twice daily. No Start Date 11/10/2010 Inactive Gabapentin 800 mg Tab RxNorm: 358765 1 Tablet(s) PO QD No Start Date 05/05/2010 Inactive Abilify 5 mg tablet RxNorm: 617466 1 Tablet(s) PO QD No Start Date Inactive Chantix 1 mg Tab RxNorm: 037521 1 Tablet(s) PO BID No Start Date 10/22 Inactive Ozempic 0.25 mg or 0.5 mg (2 mg/1.5 mL) subcutaneous p en injector RxNorm: 9270638 .25 Milligram(s) SQ QW No Start Date 07/04/2019 Inactive lancets 28 gauge RxNorm: Miscellaneous As needed for blo od glucose sticks No Start Date 08/23/2013 Inactive potassium chloride ER 20 mEq tablet,extended release RxNorm: 151261 2 Tablet(s) PO QD No Start Date 09/26/2018 Inactive Ventolin HFA 90 mcg/actuation Aerosol Inhaler RxNorm: 619528 2 Puff(s) INH Q4H prn No Start Date 01/17/2012 Inactive potassium chloride ER 20 mEq tablet,extended release RxNorm: 435468 2 Tablet(s) PO QD No Start Date 10/19/2018 Inactive Januvia 100 mg tablet RxNorm: 302728 1 Tablet(s) PO QD No Start Date 09/10/2015 Inactive Medrol (Aníbal) 4 mg Tabs in a Dose Pack RxNorm: 745442 Tablet(s) PO N o Start Date 08/09/2011 Inactive as directed Zithromax Z-Aníbal 250 mg Tab RxNorm: 576773 Tablet(s) PO No Start Date 01/25/2012 Inactive as directed vitamin B6-vitamin E-magnesium tablet RxNorm: 1 Tablet(s ) PO QHS with INH No Start Date 03/30/2018 Inactive prednisone 20 mg Tab RxNorm: 694121 1 Tablet(s) PO TID for 1wk then 1 po BID for 1wk No Start Date 01/25/2012 Inactive furosemide 40 mg tablet RxNorm: 589085 1 Tablet(s) PO QAM No Start Date 10/09/2018 Inactive Vitamin D3 1000 units Capsule RxNorm: 1 Capsule(s) PO TID No S tart Date 03/19/2015 Inactive Zofran 4 mg Tab RxNorm: 206400 1 Tablet(s) PO Q4H prn nausea No Sta rt Date 04/13/2010 Inactive Premarin 0.625 mg/g Vaginal Cream RxNorm: 801359 1 Gram (s) VAG QHS 3 times a week No Start Date 09/22/2017 Inactive oxycodone 10 mg tablet RxNorm: 8205059 1-2 Tablet(s) PO QID as n eeded for pain No Start Date 11/04/2015 Inactive Nicoderm CQ 21 mg/24 hr daily Patch RxNorm: 217935 1 Applicatio n TD QD No Start Date 08/05/2015 Inactive Topamax 50 mg tablet RxNorm: 199897 1/2 Tablet(s) PO QH S for 1wk then 1 po q HS for 1wk then 2 po q HS No Start Date 06/27/2012 Inactive Chantix Starting Month Aníbal 0.5 mg (11)-1 mg (3x14) Tab s in a Dose Pack RxNorm: 003602 Tablet(s) PO as directed No Start Date 03/01/2011 Inactive Trulicity 0.75 mg/0.5 mL subcutaneous pen injector RxNorm: 1 141156 Milliliter(s) SQ No Start Date 07/04/2019 Inactive Medrol (Aníbal) 4 mg Tabs in a Dose Pack RxNorm: 346881 Tablet(s) PO N o Start Date 01/25/2012 Inactive as directed Duragesic 100 mcg/hr Transderm Patch RxNorm: 646875 2 A pplication TD Q48H for pain No Start Date 09/05/2013 Inactive Premarin 0.9 mg Tab RxNorm: 985076 1 Tablet(s) PO QD No Start Date Inactive Zithromax Z-Aníbal 250 mg Tab RxNorm: 101734 Tablet(s) PO as direc chinmay No Start Date 01/25/2012 Inactive ondansetron 8 mg disintegrating tablet RxNorm: 795416 1 Tablet(s) PO Q6H as needed No Start Date 10/10/2018 Inactive oxycodone 15 mg tablet RxNorm: 7549781 1 Tablet(s) PO QID as nee ded for pain No Start Date 03/05/2019 Inactive ProAir HFA 90 mcg/Actuation Aerosol Inhaler RxNorm: 080371 2 Puff(s) INH Q4H prn for wheezing or shortness of breath No Start Date 12/21/2011 Inactive pravastatin 40 mg tablet RxNorm: 752842 1/2 Tablet(s) PO QOD No Sta rt Date 04/09/2015 Inactive ipratropium-albuterol 0.5 mg-3 mg(2.5 mg base)/3 mL ne bulization soln RxNorm: 2125001 1 Unit Dose INH Q4H as needed No Start Date 09/09/2016 Inactive furosemide 40 mg tablet RxNorm: 928104 1 Tablet(s) PO QAM as ne eded No Start Date 09/24/2019 Inactive Vitamin D2 oral RxNorm: 4018 oral No Start Date 03/18/2015 Inacti ve pravastatin 40 mg tablet RxNorm: 464081 1/2 Tablet(s) PO QD No Star t Date 04/09/2015 Inactive ondansetron HCl 4 mg tablet RxNorm: 881266 1 Tablet(s) PO Q4H as needed for nausea and vomiting No Start Date 04/07/2016 Inactive furosemide 40 mg tablet RxNorm: 381338 2 Tablet(s) PO QAM No Start Date 09/26/2018 Inactive gabapentin 800 mg tablet RxNorm: 949752 1/2 Tablet(s) PO BID No Sta rt Date 06/21/2017 Inactive gabapentin 800 mg tablet RxNorm: 673060 1/2 Tablet(s) PO BID No Sta rt Date 07/05/2017 Inactive ProAir HFA 90 mcg/Actuation Aerosol Inhaler RxNorm: 651000 2 Puff(s) INH Q4H prn shortness of breath No Start Date 05/05/2010 Inactive scopolamine 1 mg over 3 days transdermal patch RxNorm: 54179 2 1 Application TD behind ear. Take off after three days No Start Date 10/10/2018 Inactive Metformin 500 mg Tab RxNorm: 313282 1 Tablet(s) PO QD No Start Date 0 05/05/2010 Inactive MS Contin 200 mg Tab RxNorm: 434098 1 Tablet(s) PO BID No Start Date 08/20/2011 Inactive Belladonna-Phenobarbital 48 mg tablet,extended release RxNor m: 2 Tablet(s) PO TID No Start Date 06/04/2016 Inactive Synthroid 112 mcg Tab RxNorm: 951112 1 Tablet(s) PO QD No Start Date 05/05/2010 Inactive Zegerid 40 mg-1.1 gram Cap RxNorm: 492641 1 Capsule(s) PO QD No Sta rt Date 01/25/2012 Inactive Premarin 0.625 mg/g Vaginal Cream RxNorm: 202353 VAG In sert 1gm vaginally at bedtime 3 times weekly No Start Date 01/17/2011 Inactive potassium chloride ER 20 mEq tablet,extended release RxNorm: 858226 1 Tablet(s) PO QD No Start Date 04/24/2019 Inactive methocarbamol 750 mg tablet RxNorm: 543252 2 Tablet(s) PO TID as needed for muscle spasm No Start Date 07/08/2014 Inactive Biaxin XL Aníbal 500 mg 24 hr Tab RxNorm: 676077 Tablet(s) PO as d irected No Start Date 04/24/2013 Inactive Vitamin D3 1,000 unit tablet RxNorm: 766967 3 Tablet(s) PO QD No St art Date 06/01/2017 Inactive Morphine SR 120 mg multiphase 24 hr Cap RxNorm: 893006 1 Capsul e(s) PO BID No Start Date 04/09/2010 Inactive Silvadene 1 % topical cream RxNorm: 486735 1 Application TOP BI D to burn area No Start Date 01/31/2017 Inactive Prednisone 20 mg Tab RxNorm: 658019 1 Tablet(s) PO TID for 3days then BID for 4days No Start Date 01/25/2012 Inactive gabapentin 600 mg tablet RxNorm: 891051 1 Tablet(s) PO BID No Start Date 01/21/2015 Inactive topiramate 50 mg tablet RxNorm: 552136 1 Tablet(s) PO QHS No Start Date 03/30/2018 Inactive Januvia 100 mg tablet RxNorm: 758700 1/2 Tablet(s) PO QD No Start D ate 12/25/2015 Inactive Diazepam 10 mg Tab RxNorm: 125457 1 Tablet(s) PO BID and PRN No Sta rt Date 06/08/2010 Inactive Medication Administered No Medication Administered data Immunizations Vaccine Codes Date Status Influenza CVX: 141 09/28/2012 Pneumovax Unknown 09/28/2012 Influenza (Adult) CVX: 141 09/02/2010 Results No Results data Procedures Procedure Codes Date THER/PROPH/DIAG INJ SC/IM CPT-4: 20456 07/10/2019 METHYLPREDNISOLONE INJECTION CPT-4: J2930 07/10/2019 URINALYSIS NONAUTO W/O SCOPE CPT-4: 45746 09/06/2018 URINE CULTURE/ COLONY COUNT CPT-4: 54999 09/06/2018 DRAIN/INJECT JOINT/BURSA CPT-4: 77343 04/29/2017 TRIAMCINOLONE ACET INJ NOS CPT-4: J3301 04/29/2017 DEXAMETHASONE SODIUM PHOS CPT-4: J1100 04/29/2017 INFLUENZA ASSAY W/OPTIC CPT-4: 10431 12/01/2016 RESPIRATORY CULTURE & STAIN CPT-4: 73339 07/09/2016 TB INTRADERMAL TEST CPT-4: 32530 04/21/2016 DRAIN/INJECT JOINT/BURSA CPT-4: 39496 11/07/2013 METHYLPREDNISOLONE 40 MG INJ CPT-4: J1030 11/07/2013 TRIAMCINOLONE ACET INJ NOS CPT-4: J3301 11/07/2013 DRAIN/INJECT JOINT/BURSA CPT-4: 07444 08/08/2013 METHYLPREDNISOLONE 40 MG INJ CPT-4: J1030 08/08/2013 TRIAMCINOLONE ACET INJ NOS CPT-4: J3301 08/08/2013 FLU VACCINE 3 YRS & > IM UP 64 CPT-4: 22281 2 PNEUMOCOCCAL VACC 23 ADITYA IM CPT-4: 34880 09/28/2012 IMMUNIZATION ADMIN CPT-4: 83854 09/28/2012 IMMUNIZATION ADMIN EACH ADD CPT-4: 53221 09/28/2012 FLU VACCINE 3 YRS & > IM UP 64 CPT-4: 96883 0 IMMUNIZATION ADMIN CPT-4: 04791 09/02/2010 METHYLPREDNISOLONE INJECTION CPT-4: J2930 05/07/2010 THER/PROPH/DIAG INJ SC/IM CPT-4: 72257 05/07/2010 Vital Signs Date Vital 04/24/2020 Blood [...] 1: 122/78 Code: 8480-6 BMI: 29.5 Code: 25211-8 Heart Rate 1: 76 bpm Height: 5'4" Respiratory Rate: 20 bpm SpO2: 96% Tempera ture: 37.0 (C) / 98.6 (F) Weight: 172 lbs 01/25/2019 Blood Pressure 1: 132/80 Code: 8480-6 BMI: 29.7 Code: 87065-9 Heart Rate 1: 84 bpm Height: 5'4" Respiratory Rate: 22 bpm SpO2: 98% Tempera ture: 36.9 (C) / 98.4 (F) Weight: 173 lbs 01/03/2019 Blood Pressure 1: 116/70 Code: 8480-6 BMI: 29.5 Code: 28313-0 Heart Rate 1: 92 bpm Height: 5'4" Respiratory Rate: 24 bpm SpO2: 98% Tempera ture: 37.2 (C) / 98.9 (F) Weight: 172 lbs 11/21/2018 Blood Pressure 1: 146/82 Code: 8480-6 BMI: 28.2 Code: 92041-5 Heart Rate 1: 88 bpm Height: 5'4" Respiratory Rate: 22 bpm SpO2: 97% Tempera ture: 36.9 (C) / 98.4 (F) Weight: 164 lbs 10/27/2018 Blood Pressure 1: 122/70 Code: 8480-6 BMI: 27.6 Code: 91361-4 Heart Rate 1: 88 bpm Height: 5'4" Respiratory Rate: 20 bpm SpO2: 96% Tempera ture: 36.8 (C) / 98.3 (F) Weight: 161 lbs 10/18/2018 Blood Pressure 1: 126/70 Code: 8480-6 BMI: 28.3 Code: 15068-0 Heart Rate 1: 76 bpm Height: 5'4" Respiratory Rate: 20 bpm SpO2: 95% Tempera ture: 37.0 (C) / 98.6 (F) Weight: 165 lbs 09/27/2018 Blood Pressure 1: 124/78 Code: 8480-6 BMI: 27.1 Code: 57432-7 Heart Rate 1: 88 bpm Height: 5'4" Respiratory Rate: 20 bpm SpO2: 98% Tempera ture: 36.4 (C) / 97.6 (F) Weight: 158 lbs 09/14/2018 Blood Pressure 1: 140/72 Code: 8480-6 BMI: 26.1 Code: 21549-1 Heart Rate 1: 100 bpm Height: 5'4" Respiratory Rate: 20 bpm SpO2: 97% Tempera ture: 36.9 (C) / 98.4 (F) Weight: 152 lbs 09/06/2018 Blood Pressure 1: 156/82 Code: 8480-6 BMI: 26.3 Code: 62196-9 Heart Rate 1: 100 bpm Height: 5'4" Respiratory Rate: 28 bpm SpO2: 95% Tempera ture: 37.2 (C) / 98.9 (F) Weight: 153 lbs 08/16/2018 Blood Pressure 1: 130/78 Code: 8480-6 Heart Rate 1: 87 bpm Respiratory Rate: 24 bpm SpO2: 94% Temperature: 36.9 (C) / 98.4 (F) We ight: 147 lbs 8 oz 07/07/2018 Blood Pressure 1: 116/78 Code: 8480-6 BMI: 22.7 Code: 36793-3 Heart Rate 1: 88 bpm Height: 5'4" Respiratory Rate: 22 bpm SpO2: 98% Tempera ture: 36.5 (C) / 97.7 (F) Weight: 132 lbs 05/31/2018 Blood Pressure 1: 128/78 Code: 8480-6 BMI: 22.3 Code: 11754-3 Heart Rate 1: 92 bpm Height: 5'4" Respiratory Rate: 26 bpm SpO2: 94% Tempera ture: 36.7 (C) / 98.1 (F) Weight: 130 lbs 03/31/2018 Blood Pressure 1: 136/78 Code: 8480-6 BMI: 21.5 Code: 22297-5 Heart Rate 1: 76 bpm Height: 5'4" Respiratory Rate: 24 bpm SpO2: 95% Tempera ture: 36.8 (C) / 98.3 (F) Weight: 125 lbs 01/26/2018 Blood Pressure 1: 142/64 Code: 8480-6 BMI: 20.6 Code: 76189-7 Heart Rate 1: 90 bpm Height: 5'4" Respiratory Rate: 24 bpm SpO2: 92% Tempera ture: 36.3 (C) / 97.3 (F) Weight: 120 lbs 10/26/2017 Blood Pressure 1: 124/70 Code: 8480-6 BMI: 20.3 Code: 51806-9 Heart Rate 1: 76 bpm Height: 5'4" Respiratory Rate: 22 bpm SpO2: 94% Tempera ture: 36.7 (C) / 98.1 (F) Weight: 118 lbs 09/23/2017 Blood Pressure 1: 106/70 Code: 8480-6 BMI: 19.2 Code: 25588-7 Heart Rate 1: 76 bpm Height: 5'4" Respiratory Rate: 20 bpm SpO2: 94% Tempera ture: 36.8 (C) / 98.3 (F) Weight: 112 lbs 08/12/2017 Blood Pressure 1: 116/68 Code: 8480-6 BMI: 20.1 Code: 48688-7 Heart Rate 1: 80 bpm Height: 5'4" Respiratory Rate: 22 bpm SpO2: 95% Tempera ture: 36.8 (C) / 98.2 (F) Weight: 117 lbs 07/06/2017 Blood Pressure 1: 136/78 Code: 8480-6 BMI: 20.6 Code: 52187-6 Heart Rate 1: 76 bpm Height: 5'4" Respiratory Rate: 24 bpm SpO2: 96% Tempera ture: 36.8 (C) / 98.2 (F) Weight: 120 lbs 06/02/2017 Blood Pressure 1: 112/70 Code: 8480-6 Heart Rate 1: 92 bpm Height: 5'4" Respiratory Rate: 24 bpm SpO2: 95% Temperature: 37.0 (C) / 98.6 (F) Weight: 04/29/2017 Blood Pressure 1: 94/52 Code: 8480-6 BMI: 19.6 C ode: 55129-7 Heart Rate 1: 84 bpm Height: 5'4" [...] 92/58 Code: 8480-6 BMI: 19.2 C ode: 09903-0 Heart Rate 1: 84 bpm Height: 5'4" Respiratory Rate: 26 bpm SpO2: 95% Tempera ture: 36.7 (C) / 98.0 (F) Weight: 112 lbs 12/01/2016 Blood Pressure 1: 114/70 Code: 8480-6 BMI: 19.2 Code: 93692-5 Heart Rate 1: 96 bpm Height: 5'4" Respiratory Rate: 28 bpm SpO2: 93% Tempera ture: 38.3 (C) / 101.0 (F) Weight: 112 lbs 10/27/2016 Blood Pressure 1: 126/66 Code: 8480-6 BMI: 19.6 Code: 19893-3 Heart Rate 1: 92 bpm Height: 5'4" Respiratory Rate: 28 bpm SpO2: 90% Tempera ture: 36.8 (C) / 98.3 (F) Weight: 114 lbs 09/09/2016 Blood Pressure 1: 126/74 Code: 8480-6 Heart Rate 1: 104 bpm Height: 5'4" Respiratory Rate: 32 bpm SpO2: 88% Temperature: 37 .2 (C) / 99.0 (F) 08/26/2016 Blood Pressure 1: 134/82 Code: 8480-6 BMI: 22.0 Code: 71493-6 Heart Rate 1: 84 bpm Height: 5'4" Respiratory Rate: 24 bpm SpO2: 94% Tempera ture: 36.8 (C) / 98.3 (F) Weight: 128 lbs 05/21/2016 Blood Pressure 1: 142/80 Code: 8480-6 BMI: 21.6 Code: 30744-1 Heart Rate 1: 104 bpm Height: 5'4" Respiratory Rate: 22 bpm SpO2: 93% Tempera ture: 36.0 (C) / 96.8 (F) Weight: 126 lbs 03/25/2016 Blood Pressure 1: 126/62 Code: 8480-6 Heart Rate 1: 88 bpm Respiratory Rate: 20 bpm SpO2: 92% Temperature: 36.8 (C) / 98.3 (F) We ight: 130 lbs 01/23/2016 Blood Pressure 1: 146/82 Code: 8480-6 BMI: 24.1 Code: 47504-8 Heart Rate 1: 92 bpm Height: 5'3" Respiratory Rate: 22 bpm Temperature: 37 .1 (C) / 98.8 (F) Weight: 136 lbs 12/26/2015 Blood Pressure 1: 142/78 Code: 8480-6 BMI: 24.6 Code: 55822-7 Heart Rate 1: 78 bpm Height: 5'3" Respiratory Rate: 20 bpm Temperature: 36 .7 (C) / 98.1 (F) Weight: 139 lbs 12/03/2015 Blood Pressure 1: 126/60 Code: 8480-6 BMI: 24.6 Code: 89887-7 Heart Rate 1: 100 bpm Height: 5'3" Respiratory Rate: 28 bpm Temperature: 37 .6 (C) / 99.6 (F) Weight: 139 lbs 09/10/2015 Blood Pressure 1: 124/64 Code: 8480-6 BMI: 23.7 Code: 17821-2 Heart Rate 1: 88 bpm Height: 5'3" Respiratory Rate: 24 bpm SpO2: 95% Tempera ture: 36.4 (C) / 97.6 (F) Weight: 134 lbs 08/06/2015 Blood Pressure 1: 114/76 Code: 8480-6 BMI: 23.2 Code: 60510-8 Heart Rate 1: 88 bpm Height: 5'3" Respiratory Rate: 22 bpm Temperature: 36 .6 (C) / 97.9 (F) Weight: 131 lbs 07/18/2015 Blood Pressure 1: 144/78 Code: 8480-6 BMI: 23.7 Code: 35703-7 Heart Rate 1: 84 bpm Height: 5'3" Respiratory Rate: 20 bpm Temperature: 37 .2 (C) / 99.0 (F) Weight: 134 lbs 04/10/2015 Blood Pressure 1: 110/64 Code: 8480-6 Heart Rate 1: 80 bpm Height: Respiratory Rate: 20 bpm Temperature: 37.1 (C) / 98.8 (F) Weight: 03/05/2015 Blood Pressure 1: 136/80 Code: 8480-6 BMI: 23.9 Code: 47581-0 Heart Rate 1: 76 bpm Height: 5'3" Respiratory Rate: 24 bpm Temperature: 37 .0 (C) / 98.6 (F) Weight: 135 lbs 01/30/2015 Blood Pressure 1: 142/80 Code: 8480-6 BMI: 23.0 Code: 02726-0 Heart Rate 1: 96 bpm Height: 5'3" Respiratory Rate: 22 bpm Temperature: 36 .2 (C) / 97.2 (F) Weight: 130 lbs 01/02/2015 Blood Pressure 1: 124/70 Code: 8480-6 BMI: 23.4 Code: 45089-8 Heart Rate 1: 84 bpm Height: 5'3" Respiratory Rate: 24 bpm SpO2: 95% Tempera ture: 36.9 (C) / 98.5 (F) Weight: 132 lbs 10/03/2014 Blood Pressure 1: 106/68 Code: 8480-6 BMI: 22.5 Code: 90925-3 Heart Rate 1: 88 bpm Height: 5'3" Respiratory Rate: 24 bpm Temperature: 37 .0 (C) / 98.6 (F) Weight: 127 lbs 08/27/2014 Blood Pressure 1: 124/68 Code: 8480-6 BMI: 21.1 Code: 70137-0 Heart Rate 1: 88 bpm Height: 5'3" [...] 1: 120/70 Code: 8480-6 BMI: 19.2 Code: 84234-1 Heart Rate 1: 70 bpm Height: 5'4" Respiratory Rate: 20 bpm Temperature: 36 .9 (C) / 98.4 (F) Weight: 112 lbs 06/28/2013 Blood Pressure 1: 102/68 Code: 8480-6 BMI: 19.6 Code: 19501-0 Heart Rate 1: 76 bpm Height: 5'4" Respiratory Rate: 20 bpm Temperature: 36 .8 (C) / 98.2 (F) Weight: 114 lbs 05/31/2013 Blood Pressure 1: 106/70 Code: 8480-6 BMI: 18.9 Code: 43672-5 Heart Rate 1: 100 bpm Height: 5'4" Respiratory Rate: 20 bpm Temperature: 36 .4 (C) / 97.6 (F) Weight: 110 lbs 05/03/2013 Blood Pressure 1: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 cessation 03/01/2012 Appointment: Vika Renteria WPtel: [address] [place], [place] [phone] FOLLOW UP 03/01/2012 Patient Education: Patient Medication Summary Completed 03/01/2012 Visit Plan: Overnight pulse ox Smoking C essation Add Daliresp 500mg daily Hold Metformin 01/26/2012 Appointment: Vika Renteria WPtel: [address] [place] [address] FOLLOW UP 01/26/2012 Patient Education: Patient Medication Summary Completed 01/26/2012 Visit Plan: Discussed methotrexate trial , but do to chronic bronchitis pt wants to hold Smoking cessation Check CMP, CBC, TSH, Free T4, Lipids. ESR, ds DNA, JOVANNY Check EGD 11/03/2011 Appointment: Vika Renteria WPtel: [address] [place] [address] FOLLOW UP 11/03/2011 Patient Education: Patient Medication Summary Completed 11/03/2011 Appointment: Vika Renteriatel: [address] [place] [address] 08/10/2011 Patient Education: Patient Medication Summary Completed 08/10/2011 Visit Plan: Supportive care. Rest, Fluid s, Tylenol/Motrin prn fever or bodyaches. Notify if worsening symptoms. Medrol Dose Pack Smoking Cessation and recommend get rid of cat Add Reglan for stomach 07/15/2011 Appointment: Vika Renteriatel: [address] [place] [address] ACUTE ILLNESS 07/15/2011 Patient Education: Patient Medication Summary Completed 07/15/2011 Appointment: Vika Renteriatel: [address] [place] [address] FOLLOW UP 04/02/2011 Visit Plan: SVN with Albuterol 0.083% Q4 hrs and Q2hrs prn. Cont smoking Cessation 03/19/2011 Appointment: Vika Renteria WPtel: [address] [place] [address] ACUTE ILLNESS 03/19/2011 Patient Education: Patient Medication Summary Completed 03/19/2011 Visit Plan: Repeat Biaxin XL Cont curren t meds Repeat Chantix 01/28/2011 Appointment: Vika Renteria WPtel: [address] [place], [place] [phone] FOLLOW UP 01/28/2011 Patient Education: Patient Medication Summary Completed 01/28/2011 Patient Education: Chantix Unbranded Comp leted 01/28/2011 Appointment: Vika Renteria WPtel: [address] [place], [place] [phone] FOLLOW UP 01/14/2011 Visit Plan: Finish abx Diflucan for vagi nitis Premarin vaginal cream Smoking cessation 12/17/2010 Appointment: Vika Renteria WPtel: [address] [place], [place] [phone] [place] [address] Follow Up 12/17/2010 Patient Education: Patient Medication Summary Completed 12/17/2010 Appointment: Vika Renteria WPtel: [address] [place], [place] [phone] FOLLOW UP 11/06/2010 Visit Plan: Start PT Use SVNs every 4hrs Smoking Cessation Change MS Contin to 200mg q 12hrs 2010 Appointment: Vika Renteria WPtel: [address] [place], [place] [id number] FOLLOW UP 2010 Patient Education: Patient Medication Summary Completed 2010 Visit Plan: Prednisone taper for pain an d lungs 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 Increase fluoxetine to 60mg QD for acute stress reaction 10/02/2010 Appointment: Vika Renteria WPtel: [address] [place], [place] [phone] FOLLOW UP 10/02/2010 Patient Education: Patient Medication Summary Completed 10/02/2010 Visit Plan: Check CT Head, Cervical, Tho racic, and Lumbar Spine Cont current meds Bactrim for left toe 09/24/2010 Appointment: Vika Renteria WPtel: [address] [place], [place] [phone] CHECK UP 09/24/2010 Patient Education: Patient Medication Summary Completed 09/24/2010 Appointment: Vika Renteria WPtel: [address] [place] [address] FOLLOW UP 09/02/2010 Patient Education: Patient Medication Summary Completed 09/02/2010 Visit Plan: Return for 2nd epidural Obse rve right leg lesion Cont Symbicort and Spiriva 07/14/2010 Appointment: Vika Renteria WPtel: [address] [place] [address] FOLLOW UP 07/14/2010 Patient Education: Patient Medication Summary Completed 07/14/2010 Appointment: Vika Renteria WPtel: [address] [place] [address] FOLLOW UP 05/27/2010 Appointment: Vika Renteria WPtel: [address] [place] [address] FOLLOW UP 05/14/2010 Visit Plan: SVN with Albuterol 0.083% Q4 hrs and Q2hrs prn. Restart Spiriva Smoking Cessation 05/07/2010 Appointment: Vika Renteria WPtel: [address] [place] [address] FOLLOW UP 05/07/2010 Patient Education: Patient Medication Summary Completed 05/07/2010 Appointment: Vika Renteria WPtel: [address] [place] [address] ACUTE ILLNESS 04/08/2010 Patient Education: Patient Medication Summary Completed 04/08/2010 Referral: Kyle Billings WPtel: [phone] [address] [place] Referral Completed Referral: Jaylan Matute WPtel: [address] [facility] [address] [id number] [place] Referral Initiated Referral: Kyle Billings WPtel: [address] [address] [place] Referral Appointment Requested Instructions Comment . [...] prn breakthrough pain . Discussed that some [employer] produc ts are petroleum free If [...]
--- OUTSIDE RECORDS SUMMARY | 2020-04-24 21:53 | XMS REPORT | CCD ---
Author Author Yana Renteria D.O. Organization [facility] DO [facility] Address [address] [place] [address] Phone Care Team Providers Care Natural Science Curator Name Role Phone Vika Renteria D.O., PP Unavailable CCM Unavailable Summary Purpose Interface Exchange Insurance Providers Payer name Policy type / Coverage type Covered green party ID Effective Begin Date Effective End Date [employer] [facility] [place] Medicaid [id number] 2018 U nknown Family History Family History data not found Social History Social History Element Codes Description Effective Dates Marital status Unknown 06/28/[address]: 71751491 Currently smokes tobacco 05/2013 Allergies, Adverse Reactions, Alerts Substance Reaction Codes Entered Date Inactivated Date Status Other Unknown 06/28/2013 No Inactive Date Active * NO KNOWN FOOD ALLERGIES Unknown 06/28/2013 No Inactiv e Date Active * NO KNOWN DRUG ALLERGIES Unknown 05/07/2010 No Inactiv e Date Active Problems Condition Codes Effective Dates 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 ICD-10: Z88.5 [...] Fill Instructions gabapentin 300 mg capsule RxNorm: 106316 TAKE ONE CAPSULE BY [facility] TWICE A DAY 04/17/2020 No Stop Date Active MS Contin 200 mg tablet,extended release RxNorm: 438948 1 Tablet(s) Oral two times a day 04/16/2020 05/16/2020 Active cyclobenzaprine 10 mg tablet RxNorm: 933932 TAKE ONE TA BLET BY MOUTH THREE TIMES A DAY NEEDED 04/11/2020 No Stop Date Active potassium chloride ER 20 mEq tablet,extended release RxNorm: 965604 TAKE ONE TABLET BY MOUTH DAILY 04/11/2020 No Stop Date Active ProAir HFA 90 mcg/actuation aerosol inhaler RxNorm: 846686 INHALE ONE PUFF BY MOUTH EVERY 4 HOURS FOR WHEEZING OR FOR SHORTNESS OF BREATH 04/11/2020 No Stop Date Active Daliresp 500 mcg tablet RxNorm: 1751239 TAKE ONE TABLET BY MOUTH DAILY 04/11/2020 No Stop Date Active hydroxyzine HCl 50 mg tablet RxNorm: 822394 TAKE ONE TA BLET BY MOUTH TWICE A DAY WITH MORPHINE. *REPLACES BENADRYL* 04/11/2020 No Stop Date Active fluoxetine 20 mg capsule RxNorm: 082255 1 Capsule(s) Oral QD 201905/10/2020 Active fluoxetine 20 mg capsule RxNorm: 718914 1 Capsule(s) Oral QD 201904/09/2020 Inactive levothyroxine 25 mcg tablet RxNorm: 694329 TAKE ONE TAB LET BY MOUTH EVERY MORNING 04/09/2020 No Stop Date Active metformin 500 mg tablet RxNorm: 398086 1 Tablet(s) Oral QD 04/09/20 20 07/08/2020 Active MS Contin 200 mg tablet,extended release RxNorm: 884934 1 Tablet(s) Oral two times a day 03/19/2020 04/15/2020 Inactive Relistor 150 mg tablet RxNorm: 4574347 TAKE THREE TABLETS BY [facility] DAILY 03/13/2020 No Stop Date Active furosemide 40 mg tablet RxNorm: 917859 TAKE ONE TABLET BY MOUTH EVERY MORNING 03/13/2020 No Stop Date Active cyclobenzaprine 10 mg tablet RxNorm: 477650 TAKE ONE TA BLET BY MOUTH THREE TIMES A DAY NEEDED 03/13/2020 04/10/2020 Inactive prednisone 1 mg tablet RxNorm: 889918 1 Tablet(s) Oral two times a day to take with hydroxyzine 03/12/2020 No Stop Date Active hydroxyzine HCl 50 mg tablet RxNorm: 755489 1 Tablet(s) Oral two times a day to take with morphine--replaces benadryl 03/12/2020 04/10/2020 Inactive prednisolone 5 mg tablet RxNorm: 065967 1 Tablet(s) Oral two ti mes a day 02/22/2020 03/23/2020 Inactive prednisolone 5 mg tablet RxNorm: 512447 1 Tablet(s) Oral two ti mes a day 02/22/2020 02/21/2020 Inactive Symbicort 160 mcg-4.5 mcg/actuation HFA aerosol inhaler RxNo rm: 4966431 INHALE TWO PUFFS BY MOUTH TWICE A DAY 02/19/2020 No Stop Date Active Daliresp 500 mcg tablet RxNorm: 0719540 TAKE ONE TABLET BY MOUTH DAILY 02/19/2020 No Stop Date Active prednisone 20 mg tablet RxNorm: 561047 1 Tablet(s) Oral two yumi es a day 02/13/2020 02/20/2020 Inactive oxycodone 30 mg tablet RxNorm: 5459354 1 Tablet(s) Oral four times a day replaces MS Contin 02/13/2020 02/22/2020 Inactive levothyroxine 25 mcg tablet RxNorm: 924805 TAKE ONE TAB LET BY MOUTH EVERY MORNING 02/09/2020 04/08/2020 Inactive MS Contin 200 mg tablet,extended release RxNorm: 221268 1 Tablet(s) Oral two times a day 02/01/2020 03/01/2020 Inactive Premarin 0.45 mg tablet RxNorm: 617942 TAKE ONE TABLET BY MOUTH DAILY 01/31/2020 No Stop Date Active cyclobenzaprine 10 mg tablet RxNorm: 104089 TAKE ONE TA BLET BY MOUTH THREE TIMES A DAY NEEDED 01/31/2020 03/12/2020 Inactive metformin 500 mg tablet RxNorm: 370903 1 Tablet(s) Oral QD 01/31/2004/08/2020 Inactive gabapentin 300 mg capsule RxNorm: 626581 TAKE ONE CAPSULE BY [facility] TWICE A DAY 01/16/2020 04/16/2020 Inactive potassium chloride ER 20 mEq tablet,extended release RxNorm: 112489 TAKE ONE TABLET BY MOUTH DAILY 01/08/2020 07/05/2020 Active ProAir HFA 90 mcg/actuation aerosol inhaler RxNorm: 442654 INHALE ONE PUFF BY MOUTH EVERY 4 HOURS FOR WHEEZING OR FOR SHORTNESS OF BREATH 01/04/2020 04/10/2020 Inactive metformin 500 mg tablet RxNorm: 182375 1 Tablet(s) Oral QD 01/04/2004/09/2020 Inactive MS Contin 200 mg tablet,extended release RxNorm: 822909 1 Tablet(s) Oral two times a day 01/02/2020 01/31/2020 Inactive Pulmicort 1 mg/2 mL suspension for nebulization RxNorm: 6168 19 USE ONE VIAL VIA NEBULIZER BY MOUTH TWICE A DAY 12/21/2019 No Stop Date Active furosemide 40 mg tablet RxNorm: 870349 TAKE ONE TABLET BY MOUTH EVERY MORNING NEEDED 12/20/2019 03/12/2020 Inactive levothyroxine 25 mcg tablet RxNorm: 769283 TAKE ONE TAB LET BY MOUTH EVERY MORNING 12/20/2019 02/08/2020 Inactive MS Contin 200 mg tablet,extended release RxNorm: 309259 1 Tablet(s) Oral two times a day 12/05/2019 01/01/2020 Inactive Medrol (Aníbal) 4 mg tablets in a dose pack RxNorm: 721624 6 Tablet(s) Oral QD --then as directed 11/30/2019 12/05/2019 Inactive MS Contin 200 mg tablet,extended release RxNorm: 413135 1 Tablet(s) Oral two times a day 11/29/2019 12/04/2019 Inactive cyclobenzaprine 10 mg tablet RxNorm: 769083 TAKE ONE TA BLET BY MOUTH THREE TIMES A DAY NEEDED 11/21/2019 01/30/2020 Inactive MS Contin 200 mg tablet,extended release RxNorm: 525088 1 Tablet(s) Oral two times a day replaces 100mg dose 11/03/2019 11/02/2019 Inactive MS Contin 200 mg tablet,extended release RxNorm: 853982 1 Tablet(s) Oral two times a day replaces 100mg dose 11/03/2019 11/29/2019 Inactive ferrous sulfate 325 mg (65 mg iron) tablet RxNorm: 141882 1 Tab let(s) Oral QD 10/30/2019 No Stop Date Active MS Contin 100 mg tablet,extended release RxNorm: 035199 1 Table t(s) Oral QD 10/30/2019 10/29/2019 Inactive MS Contin 100 mg tablet,extended release RxNorm: 418811 1 Table t(s) Oral QD 10/30/2019 11/02/2019 Inactive pantoprazole 40 mg tablet,delayed release RxNorm: 282075 1 Tabl et(s) Oral QD 10/25/2019 No Stop Date Active Minipress 2 mg capsule RxNorm: 840595 1 Capsule(s) Oral QAM and 3 at bedtime 10/25/2019 No Stop Date Active Lancets, Super Thin RxNorm: 1 Unit Dose Miscellaneous QD 9 11/27/2020 Active Relistor 150 mg tablet RxNorm: 4657620 TAKE THREE TABLETS BY [facility] TH DAILY 10/25/2019 03/12/2020 Inactive oxycodone 15 mg tablet RxNorm: 8851632 1 Tablet(s) Oral four times a day as needed for pain 10/25/2019 11/28/2019 Inactive metformin 500 mg tablet RxNorm: 365377 1 Tablet(s) Oral QD 10/25/20 19 01/03/2020 Inactive levothyroxine 25 mcg tablet RxNorm: 278838 1 Tablet(s) Oral QAM 02/201912/19/2019 Inactive levothyroxine 25 mcg tablet RxNorm: 241442 1 Tablet(s) Oral QAM 02/201910/24/2019 Inactive MS Contin 100 mg tablet,extended release RxNorm: 075601 1 Tablet(s) Oral two times a day replaces fentanyl 10/25/2019 10/25/2019 Inactive Cymbalta 60 mg capsule,delayed release RxNorm: 708291 1 Capsule (s) Oral QAM 10/25/2019 04/09/2020 Inactive Cymbalta 30 mg capsule,delayed release RxNorm: 488298 1 Capsule (s) Oral QAM 10/25/2019 04/09/2020 Inactive Premarin 0.45 mg tablet RxNorm: 837431 TAKE ONE TABLET BY MOUTH DAILY 10/24/2019 01/30/2020 Inactive Duragesic 100 mcg/hr transdermal patch RxNorm: 175408 2 Application TD Q48H for pain 10/18/2019 10/24/2019 Inactive gabapentin 300 mg capsule RxNorm: 509856 TAKE ONE CAPSULE BY MO UTH TWICE A DAY 10/16/2019 01/15/2020 Inactive cyclobenzaprine 10 mg tablet RxNorm: 277305 TAKE ONE TA BLET BY MOUTH THREE TIMES A DAY NEEDED 09/27/2019 11/20/2019 Inactive Relistor 150 mg tablet RxNorm: 8552909 TAKE THREE TABLETS BY [facility] TH DAILY 09/25/2019 10/24/2019 Inactive ProAir HFA 90 mcg/actuation aerosol inhaler RxNorm: 413639 INHALE ONE PUFF BY MOUTH EVERY 4 HOURS FOR WHEEZING OR FOR SHORTNESS OF BREATH 09/25/2019 01/03/2020 Inactive furosemide 40 mg tablet RxNorm: 825833 1 Tablet(s) Oral QAM as needed 09/25/2019 09/25/2019 Inactive oxycodone 15 mg tablet RxNorm: 5439401 1 Tablet(s) PO QID as nee ded for pain 09/21/2019 10/24/2019 Inactive Duragesic 100 mcg/hr transdermal patch RxNorm: 289459 2 Application TD Q48H for pain 09/19/2019 10/17/2019 Inactive Daliresp 500 mcg tablet RxNorm: 3120812 1 Tablet(s) Oral QD 019 02/18/2020 Inactive Relistor 150 mg tablet RxNorm: 2008444 TAKE THREE TABLETS BY [facility] TH DAILY 07/25/2019 07/30/2019 Inactive cyclobenzaprine 10 mg tablet RxNorm: 958716 TAKE ONE TA BLET BY MOUTH THREE TIMES A DAY NEEDED 07/25/2019 09/22/2019 Inactive potassium chloride ER 20 mEq tablet,extended release RxNorm: 411561 TAKE ONE TABLET BY MOUTH DAILY 07/25/2019 01/07/2020 Inactive fluoxetine 40 mg capsule RxNorm: 660009 TAKE ONE CAPSULE BY [facility] TH EVERY MORNING 07/11/2019 10/24/2019 Inactive Medrol (Aníbal) 4 mg tablets in a dose pack RxNorm: 713948 6 Tablet(s) PO QD --then as directed 07/10/2019 07/15/2019 Inactive omeprazole 40 mg capsule,delayed release RxNorm: 700470 1 Capsule(s) PO QD for stomach TAKE ONE CAPSULE BY MOUTH DAILY 07/10/2019 10/24/2019 Inactive Augmentin 875 mg-125 mg tablet RxNorm: 499439 1 Tablet(s) PO BID 07/16/2019 Inactive Trulicity 0.75 mg/0.5 mL subcutaneous pen injector RxNorm: 1 541551 0.75 Milliliter(s) SQ weekly 07/05/2019 10/24/2019 Inactive Compazine 10 mg tablet RxNorm: 502190 TAKE ONE TABLET B Y MOUTH FOUR TIMES A DAY NEEDED FOR NAUSEA 06/20/2019 07/19/2019 Inactive ProAir HFA 90 mcg/actuation aerosol inhaler RxNorm: 406094 INHALE ONE PUFF BY MOUTH EVERY 4 HOURS FOR WHEEZING OR FOR SHORTNESS OF BREATH 06/20/2019 06/23/2019 Inactive Daliresp 500 mcg tablet RxNorm: 5738252 TAKE ONE TABLET BY MOUTH DAILY 06/12/2019 09/10/2019 Inactive eatehvol-rjewchpgz-amupfoeoa 3.5 mg/mL-10,000 unit/mL- 1 % ear solution RxNorm: 107751 4 Drop(s) otic (ear) TID to left ear 06/05/2019 10/24/2019 Inac tive furosemide 40 mg tablet RxNorm: 660800 TAKE ONE TABLET BY MOUTH EVERY MORNING 05/26/2019 07/09/2019 Inactive Duragesic 100 mcg/hr transdermal patch RxNorm: 505605 2 Application TD Q48H for pain 05/16/2019 06/14/2019 Inactive oxycodone 15 mg tablet RxNorm: 5988929 1 Tablet(s) PO QID as nee ded for pain 05/10/2019 09/20/2019 Inactive doxycycline hyclate 100 mg capsule RxNorm: 3718476 1 Capsule(s) PO BID 05/03/2019 05/12/2019 Inactive prednisone 20 mg tablet RxNorm: 513916 1 Tablet(s) PO T ID for 3 days then 1 po BID for 3 days then one daily for 3 days 05/03/2019 07/11/2019 Inactiv e Ozempic 0.25 mg or 0.5 mg (2 mg/1.5 mL) subcutaneous p en injector RxNorm: 0578509 0.5 Milligram(s) SQ QW 05/03/2019 07/09/2019 Inactive fluconazole 100 mg tablet RxNorm: 308197 1 Tablet(s) PO QD 05/03/2005/07/2019 Inactive Premarin 0.45 mg tablet RxNorm: 404772 TAKE ONE TABLET BY MOUTH DAILY 05/03/2019 10/23/2019 Inactive potassium chloride ER 20 mEq tablet,extended release RxNorm: 269875 1 Tablet(s) PO QD 04/27/2019 07/25/2019 Inactive potassium chloride ER 20 mEq tablet,extended release RxNorm: 091253 1 Tablet(s) PO QD 04/25/2019 04/26/2019 Inactive Compazine 10 mg tablet RxNorm: 475332 1 Tablet(s) PO QID as nee ded for nausea 04/25/2019 05/04/2019 Inactive ProAir HFA 90 mcg/actuation aerosol inhaler RxNorm: 562350 INHALE ONE PUFF BY MOUTH EVERY 4 HOURS FOR WHEEZING OR FOR SHORTNESS OF BREATH 04/12/2019 06/10/2019 Inactive Medrol (Aníbal) 4 mg tablets in a dose pack RxNorm: 668469 6 Tablet(s) PO QD --then as directed 04/11/2019 04/16/2019 Inactive Symbicort 160 mcg-4.5 mcg/actuation HFA aerosol inhaler RxNo rm: 9417405 2 Puff(s) INH BID 04/10/2019 10/06/2019 Inactive levothyroxine 50 mcg tablet RxNorm: 619213 1 Tablet(s) PO QD 201810/24/2019 Inactive gabapentin 300 mg capsule RxNorm: 015689 1 Capsule(s) PO BID 201810/02/2019 Inactive Symbicort 160 mcg-4.5 mcg/actuation HFA aerosol inhaler RxNo rm: 0834732 2 Puff(s) INH BID 04/06/2019 04/09/2019 Inactive oxycodone 15 mg tablet RxNorm: 7413123 1 Tablet(s) PO QID as nee ded for pain 04/05/2019 05/09/2019 Inactive levothyroxine 50 mcg tablet RxNorm: 510183 1 Tablet(s) PO QD 201804/09/2019 Inactive furosemide 40 mg tablet RxNorm: 852940 TAKE ONE TABLET BY MOUTH EVERY MORNING 03/21/2019 04/19/2019 Inactive levothyroxine 50 mcg tablet RxNorm: 423170 TAKE ONE TABLET BY M OUTH DAILY 03/21/2019 03/27/2019 Inactive Duragesic 100 mcg/hr transdermal patch RxNorm: 463763 2 Application TD Q48H for pain 03/13/2019 04/11/2019 Inactive oxycodone 15 mg tablet RxNorm: 3897593 1 Tablet(s) PO QID as nee ded for pain 03/06/2019 04/04/2019 Inactive Relistor 150 mg tablet RxNorm: 0680540 3 Tablet(s) PO QD 02/28/2019 0 05/28/2019 Inactive cyclobenzaprine 10 mg tablet RxNorm: 548112 1 Tablet(s) PO TID as needed 02/28/2019 05/28/2019 Inactive phentermine 37.5 mg tablet RxNorm: 309708 1 Tablet(s) PO QAM 201803/15/2019 Inactive Duragesic 100 mcg/hr transdermal patch RxNorm: 072308 2 Application TD Q48H for pain 02/09/2019 03/10/2019 Inactive Daliresp 500 mcg tablet RxNorm: 3574137 TAKE ONE TABLET BY MOUTH DAILY 01/31/2019 05/30/2019 Inactive Premarin 0.45 mg tablet RxNorm: 257609 1 Tablet(s) PO QD 01/31/2019 0 04/30/2019 Inactive fluoxetine 40 mg capsule RxNorm: 466003 Capsule(s) TAKE ONE CAPSULE BY MOUTH EVERY MORNING 01/31/2019 04/30/2019 Inactive levothyroxine 50 mcg tablet RxNorm: 315494 1 Tablet(s) PO QD 201804/10/2019 Inactive follow up in 3 weeks levothyroxine 50 mcg tablet RxNorm: 157933 1 Tablet(s) PO QD 201801/25/2019 Inactive follow up in 3 weeks potassium chloride ER 20 mEq tablet,extended release RxNorm: 592264 2 Tablet(s) PO BID 01/23/2019 01/08/2020 Inactive Synthroid 50 mcg tablet RxNorm: 752459 TAKE ONE TABLET BY MOUTH DAILY 01/16/2019 10/24/2019 Inactive potassium chloride ER 20 mEq tablet,extended release RxNorm: 495451 2 Tablet(s) PO BID 01/04/2019 01/22/2019 Inactive ProAir HFA 90 mcg/actuation aerosol inhaler RxNorm: 483226 INHALE ONE PUFF BY MOUTH EVERY 4 HOURS FOR WHEEZING OR SHORTNESS OF BREATH 01/04/201902/20 Inactive Request already responded to by other me ans (e.g. phone or fax) ProAir HFA 90 mcg/actuation aerosol inhaler RxNorm: 0224433 INHALE ONE PUFF BY MOUTH EVERY 4 HOURS FOR WHEEZING OR SHORTNESS OF BREATH 01/02/201912/23 Inactive gabapentin 300 mg capsule RxNorm: 917825 TAKE ONE CAPSULE BY MO UTH TWICE A DAY 12/30/2018 04/06/2019 Inactive furosemide 40 mg tablet RxNorm: 198196 1 Tablet(s) PO QAM 12/26/2018 02/23/2019 Inactive Compazine 10 mg tablet RxNorm: 535482 1 Tablet(s) PO QID as nee ded for nausea 12/07/2018 12/16/2018 Inactive metolazone 2.5 mg tablet RxNorm: 059189 TAKE ONE TABLET BY MOUT H EVERY MORNING 12/05/2018 01/03/2019 Inactive metformin ER 500 mg tablet,extended release 24 hr RxNorm: 86 0975 TAKE ONE TABLET BY MOUTH DAILY 12/05/2018 01/31/2020 Inactive Synthroid 50 mcg tablet RxNorm: 807670 1 Tablet(s) PO QD 11/25/2018 0 01/03/2019 Inactive DC any other synthroid strengths. Should be 50mcg only cyclobenzaprine 10 mg tablet RxNorm: 173153 TAKE ONE TA BLET BY MOUTH THREE TIMES A DAY NEEDED 11/09/2018 02/06/2019 Inactive metolazone 2.5 mg tablet RxNorm: 365922 1 Tablet(s) PO QAM repl aces 5mg dose 11/02/2018 12/01/2018 Inactive potassium chloride ER 20 mEq tablet,extended release RxNorm: 651542 2 Tablet(s) PO QD 2018 01/02/2019 Inactive Compazine 10 mg tablet RxNorm: 613715 1 Tablet(s) PO QID as nee ded for nausea 10/18/2018 12/07/2018 Inactive furosemide 40 mg tablet RxNorm: 085350 1 Tablet(s) PO QAM 10/12/2018 12/10/2018 Inactive ondansetron 8 mg disintegrating tablet RxNorm: 221647 1 Tablet(s) PO Q6H as needed 10/11/2018 10/17/2018 Inactive scopolamine 1 mg over 3 days transdermal patch RxNorm: 39514 2 1 Application TD behind ear. Take off after three days 10/11/2018 01/02/2019 Inactive furosemide 40 mg tablet RxNorm: 077113 1 Tablet(s) PO QAM 10/10/2018 12/26/2018 Inactive metolazone 5 mg tablet RxNorm: 641229 1 Tablet(s) PO QAM 10/06/2018 1 01/03/2018 Inactive metolazone 5 mg tablet RxNorm: 053399 1 Tablet(s) PO QAM 10/06/2018 1 12/05/2017 Inactive Xtampza ER 36 mg capsule sprinkle RxNorm: 2238502 1 Capsule(s) P O BID 10/05/2018 01/02/2019 Inactive Xtampza ER 36 mg capsule sprinkle RxNorm: 3533779 1 Capsule(s) P O BID 10/05/2018 02/12/2019 Inactive omeprazole 40 mg capsule,delayed release RxNorm: 829284 TAKE ONE CAPSULE BY MOUTH DAILY 10/03/2018 12/31/2018 Inactive Duragesic 100 mcg/hr transdermal patch RxNorm: 682156 2 Application TD Q48H for pain 09/30/2018 10/29/2018 Inactive Synthroid 50 mcg tablet RxNorm: 124029 1 Tablet(s) PO QD 09/29/2018 0 11/25/2018 Inactive DC any other synthroid strengths. Should be 50mcg only Synthroid 50 mcg tablet RxNorm: 452007 1 Tablet(s) PO QD 09/29/2018 1 11/28/2017 Inactive furosemide 40 mg tablet RxNorm: 362272 2 Tablet(s) PO Q AM for 1 week then every other day for 2 weeks 09/27/2018 10/12/2018 Inactive fluoxetine 40 mg capsule RxNorm: 767034 2 Capsule(s) PO QD 09/27/20 18 10/17/2018 Inactive potassium chloride ER 20 mEq tablet,extended release RxNorm: 318955 2 Tablet(s) PO QD for 1 week then every other day for 2 weeks 09/27/2018 2018 Inactive ProAir HFA 90 mcg/actuation aerosol inhaler RxNorm: 4847586 INHALE ONE PUFF BY MOUTH EVERY 4 HOURS FOR WHEEZING OR SHORTNESS OF BREATH 09/26/201811/23 Inactive Synthroid 75 mcg tablet RxNorm: 322953 1 Tablet(s) PO QD 09/09/2018 1 Inactive Synthroid 75 mcg tablet RxNorm: 036341 1 Tablet(s) PO QD 09/09/2018 1 11/28/2017 Inactive furosemide 40 mg tablet RxNorm: 501565 1 Tablet(s) PO QD 09/06/2018 1 Inactive potassium chloride ER 20 mEq tablet,extended release RxNorm: 374150 1 Tablet(s) PO QD 09/06/2018 09/19/2018 Inactive Duragesic 100 mcg/hr transdermal patch RxNorm: 470921 2 Application TD Q48H for pain 08/30/2018 09/28/2018 Inactive gabapentin 300 mg capsule RxNorm: 365773 TAKE ONE CAPSULE BY [facility] TWICE A DAY 08/23/2018 12/20/2018 Inactive Daliresp 500 mcg tablet RxNorm: 9457549 TAKE ONE TABLET BY MOUTH DAILY 08/23/2018 01/19/2019 Inactive Pulmicort 1 mg/2 mL suspension for nebulization RxNorm: 6168 19 USE ONE VIAL VIA NEBULIZER BY MOUTH TWICE A DAY 08/23/2018 07/11/2019 Inactive Synthroid 88 mcg tablet RxNorm: 266416 1 Tablet(s) PO QD 08/19/2018 1 Inactive Medrol (Aníbal) 4 mg tablets in a dose pack RxNorm: 718436 Tablet(s) PO take as directed 08/16/2018 09/05/2018 Inactive Relistor 150 mg tablet RxNorm: 9156069 3 Tablet(s) PO QD 08/16/2018 1 Inactive Zithromax Z-Aníbal 250 mg tablet RxNorm: 240194 Tablet(s) PO take as directed 08/16/2018 09/05/2018 Inactive cyclobenzaprine 10 mg tablet RxNorm: 123602 1 Tablet(s) PO TID as needed 08/16/2018 11/08/2018 Inactive Synthroid 88 mcg tablet RxNorm: 153550 1 Tablet(s) PO Q D NEEDS UPDATED LABS BEFORE FURTHER REFILLS 08/08/2018 08/19/2018 Inactive Premarin 0.45 mg tablet RxNorm: 904575 1 Tablet(s) PO QD 08/03/2018 0 01/31/2019 Inactive fluoxetine 20 mg capsule RxNorm: 613840 TAKE ONE CAPSULE BY BENOIT DAILY 08/03/2018 09/26/2018 Inactive Xtampza ER 36 mg capsule sprinkle RxNorm: 6295181 1 Capsule(s) P O BID 08/03/2018 09/01/2018 Inactive metformin ER 500 mg tablet,extended release 24 hr RxNorm: 86 0975 1 Tablet(s) PO QD 08/03/2018 10/31/2018 Inactive Symbicort 160 mcg-4.5 mcg/actuation HFA aerosol inhaler RxNo rm: 2892086 2 Puff(s) INH BID 08/03/2018 01/29/2019 Inactive Duragesic 100 mcg/hr transdermal patch RxNorm: 673327 2 Application TD Q48H for pain 07/29/2018 08/27/2018 Inactive ProAir HFA 90 mcg/actuation aerosol inhaler RxNorm: 525277 INHALE TWO PUFFS BY MOUTH EVERY 4 HOURS FOR WHEEZING OR SHORTNESS OF BREATH 07/27/201802/2018 Inactive Relistor 150 mg tablet RxNorm: 7436101 3 Tablet(s) PO QD 07/20/2018 0 08/15/2018 Inactive metformin ER 500 mg tablet,extended release 24 hr RxNorm: 86 0975 TAKE ONE TABLET BY MOUTH DAILY 07/08/2018 08/02/2018 Inactive fluoxetine 40 mg capsule RxNorm: 760049 TAKE ONE CAPSULE BY BENOIT TH EVERY MORNING 07/08/2018 10/05/2018 Inactive Xtampza ER 18 mg capsule sprinkle RxNorm: 6382346 1 Capsule(s) P O BID 07/08/2018 08/02/2018 Inactive Relistor 150 mg tablet RxNorm: 7046440 3 Tablet(s) PO QD 07/08/2018 0 07/12/2018 Inactive Synthroid 88 mcg tablet RxNorm: 068884 1 Tablet(s) PO Q D NEEDS UPDATED LABS BEFORE FURTHER REFILLS 06/23/2018 07/07/2018 Inactive fluoxetine 40 mg capsule RxNorm: 110482 TAKE ONE CAPSULE BY BENOIT TH EVERY MORNING 06/15/2018 09/26/2018 Inactive orphenadrine citrate ER 100 mg tablet,extended release RxNor m: 735532 TAKE ONE TABLET BY MOUTH TWICE A DAY FOR MUSCLE SPASM 06/15/2018 08/15/2018 [place] ct[place] Duragesic 100 mcg/hr transdermal patch RxNorm: 838296 2 Application TD Q48H for pain 05/30/2018 06/28/2018 Inactive ProAir HFA 90 mcg/actuation aerosol inhaler RxNorm: 878408 INHALE TWO PUFFS BY MOUTH EVERY 4 HOURS FOR WHEEZING OR SHORTNESS OF BREATH 05/19/201803/2018 Inactive Chantix Continuing Month Box 1 mg tablet RxNorm: 220896 TAKE ONE TABLET BY MOUTH TWICE A DAY 05/19/2018 08/15/2018 Inactive oxycodone 10 mg tablet RxNorm: 1911454 1-2 Tablet(s) PO QID as n eeded for pain 05/19/2018 07/07/2018 Inactive gabapentin 300 mg capsule RxNorm: 313652 TAKE ONE CAPSULE BY MO UTH TWICE A DAY 05/18/2018 07/16/2018 Inactive ProAir HFA 90 mcg/actuation aerosol inhaler RxNorm: 945330 INHALE TWO PUFFS BY MOUTH EVERY 4 HOURS FOR WHEEZING OR SHORTNESS OF BREATH 05/04/201804/23 Inactive Augmentin 500 mg-125 mg tablet RxNorm: 025734 1 Tablet(s) PO BID 05/03/2018 Inactive oxycodone 10 mg tablet RxNorm: 2192622 1-2 Tablet(s) PO QID as n eeded for pain 04/21/2018 05/18/2018 Inactive Synthroid 88 mcg tablet RxNorm: 266523 1 Tablet(s) PO QD 04/15/2018 0 08/08/2018 Inactive Symbicort 160 mcg-4.5 mcg/actuation HFA aerosol inhaler RxNo rm: 8792739 2 Puff(s) INH BID 04/15/2018 04/10/2019 Inactive Premarin 0.45 mg tablet RxNorm: 466022 1 Tablet(s) PO QD 04/15/2018 0 08/03/2018 Inactive ProAir HFA 90 mcg/actuation aerosol inhaler RxNorm: 483693 2 Puff(s) INH Q4H prn for wheezing or shortness of breath 04/15/2018 05/03/2018 Inactive metformin ER 500 mg tablet,extended release 24 hr RxNorm: 86 0975 1 Tablet(s) PO QD 04/11/2018 07/07/2018 Inactive omeprazole 40 mg capsule,delayed release RxNorm: 711618 TAKE ONE CAPSULE BY MOUTH DAILY 04/10/2018 06/08/2018 Inactive Synthroid 88 mcg tablet RxNorm: 684596 1 Tablet(s) PO QD 04/04/2018 0 04/14/2018 Inactive Synthroid 88 mcg tablet RxNorm: 417276 1 Tablet(s) PO QD 04/04/2018 0 04/03/2018 Inactive orphenadrine citrate ER 100 mg tablet,extended release RxNor m: 105090 1 Tablet(s) PO BID for muscle spasm 04/04/2018 05/03/2018 Inactive metformin ER 500 mg tablet,extended release 24 hr RxNorm: 86 0975 1 Tablet(s) PO QD NEEDS UPDATED LABS 03/31/2018 04/11/2018 Inactive doxycycline hyclate 100 mg capsule RxNorm: 6015145 1 Capsule(s) PO BID 03/31/2018 04/09/2018 Inactive prednisone 20 mg tablet RxNorm: 722961 3 Tablet(s) PO T ID for 3 days then 1 po BID for 3 days then one daily for 3 days 03/31/2018 07/06/2018 Inactiv e Chantix Continuing Month Box 1 mg tablet RxNorm: 165227 TAKE ONE TABLET BY MOUTH TWICE A DAY 03/25/2018 03/30/2018 Inactive oxycodone 10 mg tablet RxNorm: 7903432 1-2 Tablet(s) PO QID as n eeded for pain 03/21/2018 04/20/2018 Inactive Daliresp 500 mcg tablet RxNorm: 5303783 1 Tablet(s) PO QD 03/15/2018 08/22/2018 Inactive metformin ER 500 mg tablet,extended release 24 hr RxNorm: 86 0975 1 Tablet(s) PO QD NEEDS UPDATED LABS 03/14/2018 03/31/2018 Inactive nystatin 100,000 unit/mL oral suspension RxNorm: 321529 5 Chio liter(s) PO QID 03/02/2018 03/15/2018 Inactive nystatin 100,000 unit/mL oral suspension RxNorm: 152250 5 Chio liter(s) PO QID 03/02/2018 03/01/2018 Inactive oxycodone 10 mg tablet RxNorm: 6111332 1-2 Tablet(s) PO QID as n eeded for pain 02/16/2018 03/20/2018 Inactive fluoxetine 20 mg capsule RxNorm: 329066 1 Capsule(s) PO QD 02/15/20 18 08/02/2018 Inactive metformin ER 500 mg tablet,extended release 24 hr RxNorm: 86 0975 1 Tablet(s) PO QD Needs updated labs 02/14/2018 03/14/2018 Inactive cefdinir 300 mg capsule RxNorm: 160970 1 Capsule(s) PO BID 01/27/20 18 02/04/2018 Inactive orphenadrine citrate ER 100 mg tablet,extended release RxNor m: 333486 1 Tablet(s) PO BID for muscle spasm 01/26/2018 04/04/2018 Inactive gabapentin 300 mg capsule RxNorm: 703377 1 Capsule(s) PO BID 201704/17/2018 Inactive oxycodone 10 mg tablet RxNorm: 5838098 1-2 Tablet(s) PO QID as n eeded for pain 01/17/2018 02/15/2018 Inactive Duragesic 100 mcg/hr transdermal patch RxNorm: 119944 2 Application TD Q48H for pain 01/17/2018 02/15/2018 Inactive gabapentin 300 mg capsule RxNorm: 216684 TAKE ONE CAPSULE BY MO UTH TWICE A DAY 12/20/2017 01/18/2018 Inactive fluoxetine 40 mg capsule RxNorm: 027787 TAKE ONE CAPSULE BY BENOIT TH EVERY MORNING 12/15/2017 03/14/2018 Inactive OneTouch Ultra Test strips RxNorm: TEST DAILY 11/04/2017 02/01/2018 Inactive gabapentin 300 mg capsule RxNorm: 493899 1 Capsule(s) P O TID replaces BID dosing 10/26/2017 02/22/2018 Inactive oxycodone 10 mg tablet RxNorm: 5738520 1-2 Tablet(s) PO QID as n eeded for pain 10/18/2017 01/16/2018 Inactive Duragesic 100 mcg/hr transdermal patch RxNorm: 168129 2 Application TD Q48H for pain 10/18/2017 11/16/2017 Inactive gabapentin 300 mg capsule RxNorm: 748518 1 Capsule(s) PO BID 201610/25/2017 Inactive Abilify 5 mg tablet RxNorm: 322051 1 Tablet(s) PO QAM 09/23/201702/2017 Inactive gabapentin 300 mg capsule RxNorm: 882697 1 Capsule(s) PO BID 201610/17/2017 Inactive oxycodone 10 mg tablet RxNorm: 5032487 1-2 Tablet(s) PO QID as n eeded for pain 09/15/2017 10/17/2017 Inactive Duragesic 100 mcg/hr transdermal patch RxNorm: 629146 2 Application TD Q48H for pain 09/15/2017 10/14/2017 Inactive Duragesic 100 mcg/hr transdermal patch RxNorm: 906510 2 Application TD Q48H for pain 09/15/2017 10/24/2019 Inactive oxycodone 10 mg tablet RxNorm: 8912499 1-2 Tablet(s) PO QID as n eeded for pain 09/15/2017 08/15/2018 Inactive Daliresp 500 mcg tablet RxNorm: 8442593 1 Tablet(s) PO QD 09/06/2017 03/15/2018 Inactive Ventolin HFA 90 mcg/actuation aerosol inhaler RxNorm: 204058 2 Puff(s) INH Q4H as needed 09/02/2017 05/19/2018 Inactive oxycodone 10 mg tablet RxNorm: 6425167 1-2 Tablet(s) PO QID as n eeded for pain 08/17/2017 09/14/2017 Inactive Duragesic 100 mcg/hr transdermal patch RxNorm: 452066 2 Application TD Q48H for pain 08/17/2017 09/14/2017 Inactive fluoxetine 40 mg capsule RxNorm: 785147 Capsule(s) TAKE ONE CAPSULE BY MOUTH EVERY MORNING 08/17/2017 12/14/2017 Inactive Pulmicort 1 mg/2 mL suspension for nebulization RxNorm: 6168 19 1 Unit Dose INH BID Dx: COPD (J44.9) 08/16/2017 08/22/2018 Inactive gabapentin 300 mg capsule RxNorm: 464067 1 Capsule(s) PO QHS 201610/18/2017 Inactive fluoxetine 20 mg capsule RxNorm: 523636 1 Capsule(s) PO QD 08/12/20 17 02/14/2018 Inactive Abilify 2 mg tablet RxNorm: 445560 1 Tablet(s) PO QD TA KE ONE TABLET BY MOUTH DAILY 08/12/2017 10/25/2017 Inactive metformin ER 500 mg tablet,extended release 24 hr RxNorm: 86 0975 1 Tablet(s) PO QD 08/10/2017 02/14/2018 Inactive Synthroid 112 mcg tablet RxNorm: 879217 1 Tablet(s) PO QD 08/10/2017 04/15/2018 Inactive oxycodone 10 mg tablet RxNorm: 9968992 1-2 Tablet(s) PO QID as n eeded for pain 07/19/2017 08/16/2017 Inactive Duragesic 100 mcg/hr transdermal patch RxNorm: 523194 2 Application TD Q48H for pain 07/19/2017 08/16/2017 Inactive Ventolin HFA 90 mcg/actuation aerosol inhaler RxNorm: 134944 2 Puff(s) INH Q4H as needed 07/12/2017 09/02/2017 Inactive Abilify 2 mg tablet RxNorm: 469410 1 Tablet(s) PO QD TA KE ONE TABLET BY MOUTH DAILY 07/06/2017 08/11/2017 Inactive gabapentin 800 mg tablet RxNorm: 327630 1 Tablet(s) PO TID 06/22/20 17 07/05/2017 Inactive Chantix Starting Month Box 0.5 mg (11)-1 mg (42) table ts in dose pack RxNorm: 057956 TAKE BY MOUTH INSTRUCTED - PER PACKAGE INSTRUCTIONS 06/0707/04/2017 Inactive Ventolin HFA 90 mcg/actuation aerosol inhaler RxNorm: 887056 2 Puff(s) INH Q4H as needed 05/26/2017 07/12/2017 Inactive Duragesic 100 mcg/hr transdermal patch RxNorm: 213706 2 Application TD Q48H for pain 05/19/2017 06/17/2017 Inactive oxycodone 10 mg tablet RxNorm: 1902768 1-2 Tablet(s) PO QID as n eeded for pain 05/19/2017 07/18/2017 Inactive Abilify 2 mg tablet RxNorm: 436209 TAKE ONE TABLET BY MOUTH DAILY 0 05/10/2017 07/05/2017 Inactive Synthroid 112 mcg tablet RxNorm: 275728 1 Tablet(s) PO QD 05/06/2017 08/10/2017 Inactive metformin ER 500 mg tablet,extended release 24 hr RxNorm: 86 0975 1 Tablet(s) PO QD 05/06/2017 08/10/2017 Inactive Topamax 100 mg tablet RxNorm: 197029 1 Tablet(s) PO QHS 05/06/2017 Inactive Premarin 0.45 mg tablet RxNorm: 663383 1 Tablet(s) PO QD 05/06/2017 0 04/15/2018 Inactive orphenadrine citrate ER 100 mg tablet,extended release RxNor m: 133635 1 Tablet(s) PO TID for muscle spasm--replaces methocarbamol 04/29/2017 Inactive oxycodone 10 mg tablet RxNorm: 7357721 1-2 Tablet(s) PO QID as n eeded for pain 04/21/2017 05/18/2017 Inactive Duragesic 100 mcg/hr transdermal patch RxNorm: 841728 2 Application TD Q48H for pain 04/21/2017 05/18/2017 Inactive fluoxetine 40 mg capsule RxNorm: 688218 Capsule(s) TAKE ONE CAPSULE BY MOUTH EVERY MORNING 04/20/2017 08/17/2017 Inactive Ventolin HFA 90 mcg/actuation aerosol inhaler RxNorm: 573434 2 Puff(s) INH Q4H as needed 04/05/2017 05/26/2017 Inactive Symbicort 160 mcg-4.5 mcg/actuation HFA aerosol inhaler RxNo rm: 5692544 2 Puff(s) INH BID 03/30/2017 04/15/2018 Inactive Spiriva with HandiHaler 18 mcg and inhalation capsules RxNor m: 194795 1 Capsule(s) INH QD USING HANDIHALER 03/30/2017 02/12/2019 Inactive Duragesic 100 mcg/hr transdermal patch RxNorm: 494146 2 Application TD Q48H for pain 03/18/2017 04/16/2017 Inactive oxycodone 10 mg tablet RxNorm: 1384134 1-2 Tablet(s) PO QID as n eeded for pain 03/18/2017 04/20/2017 Inactive metformin ER 500 mg tablet,extended release 24 hr RxNorm: 86 0975 Tablet(s) TAKE ONE TABLET BY MOUTH DAILY 03/01/2017 05/06/2017 Inactive Premarin 0.45 mg tablet RxNorm: 938153 Tablet(s) TAKE ONE TABLE T BY MOUTH DAILY 03/01/2017 05/06/2017 Inactive Synthroid 112 mcg tablet RxNorm: 152122 Tablet(s) TAKE ONE TABLET BY MOUTH DAILY 03/01/2017 05/06/2017 Inactive Daliresp 500 mcg tablet RxNorm: 2747418 1 Tablet(s) PO QD 03/01/2017 09/06/2017 Inactive 16.2 mg-0.1037 mg-0.0194 mg tablet RxNorm: 1340436 Tablet(s) PO PRN for gas and cramping 02/23/2017 04/28/2017 Inactive TAKE TWO TABLET S BY MOUTH THREE TIMES A DAY NEEDED FOR GAS AND CRAMPING gabapentin 800 mg tablet RxNorm: 953409 1 Tablet(s) PO TID repl aces 600mg 02/23/2017 04/28/2017 Inactive Duragesic 100 mcg/hr transdermal patch RxNorm: 012973 2 Application TD Q48H for pain 02/17/2017 03/17/2017 Inactive fluoxetine 20 mg capsule RxNorm: 756051 1 Capsule(s) PO QD 02/18/20 17 08/12/2017 Inactive oxycodone 20 mg tablet RxNorm: 4176040 1 Tablet(s) PO QID as nee ded for pain 02/17/2017 03/17/2017 Inactive Ventolin HFA 90 mcg/actuation aerosol inhaler RxNorm: 811789 INHALE TWO PUFFS BY MOUTH EVERY 4 HOURS NEEDED 02/15/2017 04/05/2017 Inactive Silvadene 1 % topical cream RxNorm: 786860 1 Application TOP BI D to burn area 02/01/2017 09/22/2017 Inactive Topamax 100 mg tablet RxNorm: 234191 TAKE ONE TABLET BY MOUTH EVERY NIGHT AT BEDTIME 01/29/2017 05/06/2017 Inactive Chantix Starting Month Box 0.5 mg (11)-1 mg (42) table ts in dose pack RxNorm: 338426 Tablet(s) PO as directed 01/29/2017 06/01/2017 Inactive Abilify 2 mg tablet RxNorm: 220088 TAKE ONE TABLET BY MOUTH DAILY 0 01/26/2017 04/25/2017 Inactive Chantix Starting Month Box 0.5 mg (11)-1 mg (42) table ts in dose pack RxNorm: 905149 Tablet(s) PO as directed 01/20/2017 01/28/2017 Inactive gabapentin 600 mg tablet RxNorm: 360087 1 Tablet(s) PO TID 01/21/20 17 02/22/2017 Inactive Chantix Continuing Month Box 1 mg tablet RxNorm: 859713 1 Table t(s) PO BID 12/31/2016 06/01/2017 Inactive Spiriva with HandiHaler 18 mcg and inhalation capsules RxNor m: 562508 INHALE THE ENTIRE CONTENTS OF 1 CAPSULE ONCE A DAY USING HANDIHALER 12/31/201607/2017 Inactive Synthroid 112 mcg tablet RxNorm: 042486 TAKE ONE TABLET BY MOUT H DAILY 12/30/2016 03/01/2017 Inactive metformin ER 500 mg tablet,extended release 24 hr RxNorm: 86 0975 TAKE ONE TABLET BY MOUTH DAILY 12/30/2016 03/01/2017 Inactive Premarin 0.45 mg tablet RxNorm: 147765 TAKE ONE TABLET BY MOUTH DAILY 12/30/2016 03/01/2017 Inactive omeprazole 40 mg capsule,delayed release RxNorm: 425604 TAKE ONE CAPSULE BY MOUTH DAILY 12/30/2016 01/25/2018 Inactive Ventolin HFA 90 mcg/actuation aerosol inhaler RxNorm: 218210 INHALE TWO PUFFS BY MOUTH EVERY 4 HOURS NEEDED 12/28/2016 02/13/2017 Inactive fluoxetine 40 mg capsule RxNorm: 153527 TAKE ONE CAPSULE BY BENOIT TH EVERY MORNING 12/15/2016 04/20/2017 Inactive Chantix Continuing Month Box 1 mg tablet RxNorm: 034800 TAKE ONE TABLET BY MOUTH TWICE A DAY 12/04/2016 12/31/2016 Inactive doxycycline hyclate 100 mg capsule RxNorm: 6887433 1 Capsule(s) PO BID 12/01/2016 12/07/2016 Inactive Levaquin 750 mg tablet RxNorm: 120031 1 Tablet(s) PO QD 12/01/2016 Inactive Abilify 2 mg tablet RxNorm: 969134 TAKE ONE TABLET BY MOUTH DAILY 0 11/25/2016 11/30/2016 Inactive Ventolin HFA 90 mcg/actuation aerosol inhaler RxNorm: 696593 INHALE TWO PUFFS BY MOUTH EVERY 4 HOURS NEEDED 11/02/2016 12/19/2016 Inactive Chantix Continuing Month Box 1 mg tablet RxNorm: 940552 Tablet(s) PO as directed 10/30/2016 12/03/2016 Inactive Symbicort 160 mcg-4.5 mcg/actuation HFA aerosol inhaler RxNo rm: 0933664 INHALE TWO PUFFS TWO TIMES A DAY 10/30/2016 03/30/2017 Inactive Abilify 2 mg tablet RxNorm: 702098 1 Tablet(s) PO QD 10/27/201611/24 Inactive amoxicillin 500 mg capsule RxNorm: 114024 1 Capsule(s) PO TID 10/1410/23/2016 Inactive amoxicillin 500 mg capsule RxNorm: 107108 1 Capsule(s) PO TID 10/1410/13/2016 Inactive Synthroid 112 mcg tablet RxNorm: 701610 TAKE ONE TABLET BY MOUT H DAILY 09/28/2016 12/29/2016 Inactive Topamax 100 mg tablet RxNorm: 637940 TAKE ONE TABLET BY MOUTH EVERY NIGHT AT BEDTIME 09/28/2016 01/28/2017 Inactive Premarin 0.45 mg tablet RxNorm: 894006 TAKE ONE TABLET BY MOUTH DAILY 09/28/2016 12/29/2016 Inactive metformin ER 500 mg tablet,extended release 24 hr RxNorm: 86 0975 TAKE ONE TABLET BY MOUTH DAILY 09/28/2016 12/29/2016 Inactive Ventolin HFA 90 mcg/actuation aerosol inhaler RxNorm: 567037 INHALE TWO PUFFS BY MOUTH EVERY 4 HOURS NEEDED 09/22/2016 10/23/2016 Inactive Pulmicort 1 mg/2 mL suspension for nebulization RxNorm: 6168 19 1 Unit Dose INH BID Dx: COPD (J44.9) 09/10/2016 08/16/2017 Inactive Pulmicort 1 mg/2 mL suspension for nebulization RxNorm: 6168 19 1 Unit Dose INH BID 09/10/2016 09/09/2016 Inactive Brovana 15 mcg/2 mL solution for nebulization RxNorm: 600260 1 Unit Dose INH BID Dx: COPD (J44.9) 09/10/2016 01/25/2018 Inactive Brovana 15 mcg/2 mL solution for nebulization RxNorm: 058032 1 Unit Dose INH BID 09/10/2016 09/09/2016 Inactive ipratropium-albuterol 0.5 mg-3 mg(2.5 mg base)/3 mL ne bulization soln RxNorm: 1175517 1 Unit Dose INH Q4H as needed Dx: COPD (J44.9) 09/10/2016 0 02/12/2019 Inactive orphenadrine citrate ER 100 mg tablet,extended release RxNor m: 452063 1 Tablet(s) PO BID for muscle spasm--replaces methocarbamol 09/09/2016 Inactive Chantix Continuing Month Box 1 mg tablet RxNorm: 051809 Tablet(s) PO as directed 09/09/2016 10/30/2016 Inactive orphenadrine citrate ER 100 mg tablet,extended release RxNor m: 464371 1 Tablet(s) PO BID for muscle spasm 09/09/2016 09/08/2016 Inactive Spiriva with HandiHaler 18 mcg and inhalation capsules RxNor m: 537744 INHALE THE ENTIRE CONTENTS OF 1 CAPSULE ONCE A DAY USING HANDIHALER 09/01/201605/2017 Inactive Daliresp 500 mcg tablet RxNorm: 6461635 1 Tablet(s) PO QD 08/27/2016 03/01/2017 Inactive prednisone 20 mg tablet RxNorm: 940628 3 Tablet(s) PO T ID for 3 days then 1 po BID for 3 days then one daily for 3 days 08/26/2016 04/28/2017 Inactiv e Wellbutrin XL 300 mg 24 hr tablet, extended release RxNorm: 760166 TAKE ONE TABLET BY MOUTH EVERY MORNING 07/29/2016 10/26/2016 Inactive gabapentin 600 mg tablet RxNorm: 078922 1 Tablet(s) PO BID 06/26/20 16 12/22/2016 Inactive fluoxetine 40 mg capsule RxNorm: 343635 TAKE ONE CAPSULE BY BENOIT TH EVERY MORNING 06/24/2016 11/20/2016 Inactive Duragesic 100 mcg/hr transdermal patch RxNorm: 831966 2 Application TD Q48H for pain 06/05/2016 07/04/2016 Inactive oxycodone 10 mg tablet RxNorm: 7106873 1-2 Tablet(s) PO QID as n eeded for pain 06/05/2016 03/17/2017 Inactive Belladonna-Phenobarbital 48 mg tablet,extended release RxNor m: 2 Tablet(s) PO TID 06/05/2016 01/19/2017 Inactive Premarin 0.45 mg tablet RxNorm: 421146 TAKE ONE TABLET BY MOUTH DAILY 05/27/2016 09/23/2016 Inactive Topamax 100 mg tablet RxNorm: 106413 TAKE ONE TABLET BY MOUTH EVERY NIGHT AT BEDTIME 05/27/2016 09/27/2016 Inactive Synthroid 112 mcg tablet RxNorm: 919162 TAKE ONE TABLET BY MOUT H DAILY 05/27/2016 09/23/2016 Inactive metformin ER 500 mg tablet,extended release 24 hr RxNorm: 86 0975 TAKE ONE TABLET BY MOUTH DAILY 05/27/2016 09/23/2016 Inactive Symbicort 160 mcg-4.5 mcg/actuation HFA aerosol inhaler RxNo rm: 5181381 INHALE TWO PUFFS TWO TIMES A DAY 05/27/2016 10/23/2016 Inactive Ventolin HFA 90 mcg/actuation aerosol inhaler RxNorm: 565456 INHALE TWO PUFFS BY MOUTH EVERY 4 HOURS NEEDED 05/21/2016 07/07/2016 Inactive omeprazole 40 mg capsule,delayed release RxNorm: 528513 1 Capsu le(s) PO QD 05/06/2016 08/03/2016 Inactive metformin ER 500 mg tablet,extended release 24 hr RxNorm: 86 0975 TAKE ONE TABLET BY MOUTH DAILY 04/23/2016 05/22/2016 Inactive methocarbamol 750 mg tablet RxNorm: 604129 2 Tablet(s) PO TID as needed for muscle spasm 04/23/2016 09/08/2016 Inactive Synthroid 112 mcg tablet RxNorm: 916827 TAKE ONE TABLET BY MOUT H DAILY 04/23/2016 05/22/2016 Inactive Spiriva with HandiHaler 18 mcg and inhalation capsules RxNor m: 009545 INHALE THE ENTIRE CONTENTS OF 1 CAPSULE ONCE A DAY USING HANDIHALER 04/09/201608/2016 Inactive Diflucan 100 mg tablet RxNorm: 476691 1 Tablet(s) PO QD 04/08/2016 Inactive doxycycline hyclate 100 mg capsule RxNorm: 4540143 1 Capsule(s) PO BID 04/08/2016 04/17/2016 Inactive doxycycline hyclate 100 mg capsule RxNorm: 6981199 1 Capsule(s) PO BID 04/08/2016 04/07/2016 Inactive Diflucan 100 mg tablet RxNorm: 996306 1 Tablet(s) PO QD 04/08/2016 Inactive ondansetron HCl 4 mg tablet RxNorm: 133589 1 Tablet(s) PO Q4H as needed for nausea and vomiting 04/08/2016 09/22/2017 Inactive gabapentin 600 mg tablet RxNorm: 617197 TAKE ONE TABLET BY MOUT H TWICE A DAY 03/24/2016 06/25/2016 Inactive Synthroid 112 mcg tablet RxNorm: 967707 TAKE ONE TABLET BY MOUT H DAILY 02/25/2016 04/22/2016 Inactive Levaquin 500 mg tablet RxNorm: 033998 1 Tablet(s) PO QD 01/23/2016 Inactive prednisone 20 mg tablet RxNorm: 984109 1 Tablet(s) PO T ID for 3 days then 1 po BID for 3 days then one daily for 3 days 01/23/2016 08/25/2016 Inactiv e interclick Ultra Test strips RxNorm: TEST BLOOD SUGAR ONCE DAILY 250.00 01/09/2016 11/04/2017 Inactive methocarbamol 750 mg tablet RxNorm: 403029 2 Tablet(s) PO TID as needed for muscle spasm 01/09/2016 04/23/2016 Inactive lactulose 10 gram/15 mL oral solution RxNorm: 763939 [address](s) PO QD 01/09/2016 09/22/2017 Inactive TAKE 1 TABLESPOON BY MOUTH ONCE DAILY metformin ER 500 mg tablet,extended release 24 hr RxNorm: 86 0975 1 Tablet(s) PO QD 12/26/2015 04/22/2016 Inactive fluoxetine 20 mg capsule RxNorm: 233704 1 Capsule(s) PO QD 12/23/19 16 06/19/2016 Inactive Premarin 0.45 mg tablet RxNorm: 734061 TAKE ONE TABLET BY MOUTH DAILY 12/23/2015 05/20/2016 Inactive fluoxetine 40 mg capsule RxNorm: 497631 1 Capsule(s) PO QD 12/23/19 16 06/19/2016 Inactive TAKE ONE CAPSULE BY MOUTH EV JANKI MORNING azithromycin 500 mg tablet RxNorm: 815505 1 Tablet(s) PO QD 016 12/19/2015 Inactive Zofran 4 mg tablet RxNorm: 002725 1 Tablet(s) PO Q4H prn nausea /vomiting 12/13/2015 03/30/2018 Inactive azithromycin 500 mg tablet RxNorm: 425006 1 Tablet(s) PO QD 016 12/12/2015 Inactive Duragesic 100 mcg/hr transdermal patch RxNorm: 266721 2 Application TD Q48H for pain 12/09/2015 01/07/2016 Inactive oxycodone 10 mg tablet RxNorm: 8557392 1-2 Tablet(s) PO QID as n eeded for pain 12/09/2015 06/04/2016 Inactive Bactroban 2 % topical cream RxNorm: 984336 Application TOP BID 11/2208/25/2016 Inactive doxycycline hyclate 100 mg capsule RxNorm: 6944073 1 Capsule(s) PO BID 12/03/2015 12/12/2015 Inactive Topamax 100 mg tablet RxNorm: 087770 TAKE ONE TABLET BY MOUTH EVERY NIGHT AT BEDTIME 11/25/2015 05/22/2016 Inactive Symbicort 160 mcg-4.5 mcg/actuation HFA aerosol inhaler RxNo rm: 7295621 INHALE TWO PUFFS TWO TIMES A DAY 11/25/2015 05/22/2016 Inactive Synthroid 112 mcg tablet RxNorm: 371880 Tablet(s) TAKE ONE TABLET BY MOUTH DAILY 11/25/2015 02/22/2016 Inactive omeprazole 40 mg capsule,delayed release RxNorm: 744904 1 Capsu le(s) PO QD 11/12/2015 05/05/2016 Inactive oxycodone 10 mg tablet RxNorm: 8421180 1-2 Tablet(s) PO QID as n eeded for pain 11/05/2015 12/08/2015 Inactive Duragesic 100 mcg/hr transdermal patch RxNorm: 387276 2 Application TD Q48H for pain 11/05/2015 12/04/2015 Inactive omeprazole 40 mg capsule,delayed release RxNorm: 397991 1 Capsu le(s) PO QD 10/07/2015 11/11/2015 Inactive Januvia 100 mg tablet RxNorm: 310261 TAKE ONE TABLET BY MOUTH DAILY 09/11/2015 12/25/2015 Inactive Zithromax 500 mg tablet RxNorm: 179627 1 Tablet(s) PO QD 09/10/2015 1 Inactive prednisone 20 mg tablet RxNorm: 584706 1 Tablet(s) PO T ID for 3 days then 1 po BID for 3 days then one daily for 3 days 09/10/2015 08/25/2016 Inactiv e Wellbutrin XL 300 mg 24 hr tablet, extended release RxNorm: 695211 1 Tablet(s) PO QAM 09/10/2015 12/02/2015 Inactive Topamax 100 mg tablet RxNorm: 870458 TAKE ONE TABLET BY MOUTH EVERY NIGHT AT BEDTIME 09/02/2015 11/24/2015 Inactive Synthroid 112 mcg tablet RxNorm: 676704 TAKE ONE TABLET BY MOUT H DAILY 09/02/2015 11/25/2015 Inactive methocarbamol 750 mg tablet RxNorm: 434600 2 Tablet(s) PO TID as needed for muscle spasm 08/15/2015 01/09/2016 Inactive Wellbutrin XL 150 mg 24 hr tablet, extended release RxNorm: 616954 TAKE ONE TABLET BY MOUTH EVERY MORNING 08/13/2015 08/13/2015 Inactive gabapentin 600 mg tablet RxNorm: 205893 1 Tablet(s) PO BID 08/13/20 15 02/08/2016 Inactive Wellbutrin XL 300 mg 24 hr tablet, extended release RxNorm: 984470 1 Tablet(s) PO QAM 08/06/2015 09/09/2015 Inactive Wellbutrin XL 150 mg 24 hr tablet, extended release RxNorm: 446113 1 Tablet(s) PO QAM 07/18/2015 08/05/2015 Inactive prednisone 20 mg tablet RxNorm: 892350 1 Tablet(s) PO BID 07/18/2015 07/22/2015 Inactive doxycycline hyclate 100 mg tablet,delayed release RxNorm: 43 4018 1 Tablet(s) PO BID 07/18/2015 07/27/2015 Inactive pravastatin 40 mg tablet RxNorm: 061077 1 Tablet(s) PO QD NEEDS FASTING LAB 07/15/2015 07/14/2015 Inactive pravastatin 40 mg tablet RxNorm: 542481 1 Tablet(s) PO QD NEEDS FASTING LAB 07/15/2015 01/25/2018 Inactive Ventolin HFA 90 mcg/actuation aerosol inhaler RxNorm: 902525 2 Puff(s) INH Q4H 07/08/2015 07/07/2015 Inactive prn Premarin 0.45 mg tablet RxNorm: 574260 1 Tablet(s) PO QD 07/01/2015 0 12/22/2015 Inactive pravastatin 40 mg tablet RxNorm: 316565 1 Tablet(s) PO QD NEEDS FASTING LAB 06/14/2015 07/15/2015 Inactive Ventolin HFA 90 mcg/actuation aerosol inhaler RxNorm: 8136408 2 Puff(s) INH Q4H 06/06/2015 07/08/2015 Inactive prn albuterol sulfate 2.5 mg/3 mL (0.083 %) solution for n ebulization RxNorm: 671120 1 Unit Dose INH QID 05/30/2015 No Stop Date Active Duragesic 100 mcg/hr transdermal patch RxNorm: 107878 2 Application TD Q48H for pain 04/29/2015 05/28/2015 Inactive gabapentin 600 mg tablet RxNorm: 896487 1 Tablet(s) PO BID 04/11/20 15 08/13/2015 Inactive Onglyza 5 mg tablet RxNorm: 850480 1 Tablet(s) PO QD for blood suga r 04/10/2015 04/15/2015 Inactive [Brand Copay Card: RxBIN:[id number] PCN:CRISTIANA RxGRP:[id number] ID#:[id number]] methocarbamol 750 mg tablet RxNorm: 376199 2 Tablet(s) PO TID as needed for muscle spasm 03/28/2015 08/15/2015 Inactive pravastatin 40 mg tablet RxNorm: 815622 1 Tablet(s) PO QD 03/19/2015 03/18/2015 Inactive pravastatin 40 mg tablet RxNorm: 063074 1 Tablet(s) PO QD 03/19/2015 06/14/2015 Inactive lactulose 10 gram/15 mL oral solution RxNorm: 930177 [address]s) PO QD 03/07/2015 01/09/2016 Inactive TAKE 1 TABLESPOON BY MOUTH ONCE DAILY oxycodone 20 mg tablet RxNorm: 0213824 1 Tablet(s) PO QID as nee ded for pain 03/05/2015 07/08/2015 Inactive Topamax 100 mg tablet RxNorm: 164706 1 Tablet(s) PO QHS TAKE ONE TABLET BY MOUTH AT BEDTIME 02/25/2015 02/12/2019 Inactive metformin ER 500 mg tablet,extended release 24 hr RxNorm: 86 0975 1 Tablet(s) PO QD 02/11/2015 03/04/2015 Inactive take one tablet by mouth every day Daliresp 500 mcg tablet RxNorm: 2364632 1 Tablet(s) PO QD 02/11/2015 08/09/2015 Inactive Endocet 10 mg-325 mg tablet RxNorm: 6885126 1 Tablet(s) PO Q4H as needed for pain 01/23/2015 01/23/2015 Inactive gabapentin 600 mg tablet RxNorm: 016977 1 Tablet(s) PO BID 01/23/20 15 04/11/2015 Inactive methocarbamol 750 mg tablet RxNorm: 995863 2 Tablet(s) PO TID as needed for muscle spasm 01/15/2015 02/13/2015 Inactive fluoxetine 40 mg capsule RxNorm: 235957 1 Capsule(s) PO QD 01/14/20 15 12/23/2015 Inactive TAKE ONE CAPSULE BY MOUTH EV JANKI MORNING fluoxetine 20 mg capsule RxNorm: 772892 1 Capsule(s) PO QD 01/14/20 15 12/23/2015 Inactive Premarin 0.45 mg tablet RxNorm: 877799 1 Tablet(s) PO QD 01/02/2015 0 07/01/2015 Inactive Endocet 10 mg-325 mg tablet RxNorm: 6756988 1-2 Tablet(s) PO Q4H 02/12/2019 Inactive PRN PAIN Duragesic 100 mcg/hr transdermal patch RxNorm: 499942 2 Application TD Q48H for pain 12/25/2014 01/23/2015 Inactive Topamax 100 mg tablet RxNorm: 752327 1 Tablet(s) PO QHS TAKE ONE TABLET BY MOUTH AT BEDTIME 12/25/2014 02/24/2015 Inactive Tudorza Pressair 400 mcg/actuation breath activated RxNorm: 9344364 1 BID INHALE ONE PUFF INTO LUNGS TWO TIMES A DAY 12/17/2014 05/15/2015 Inactive Endocet 10 mg-325 mg tablet RxNorm: 9780960 1-2 Tablet(s) PO Q4H 12/19/2014 Inactive PRN PAIN Duragesic 100 mcg/hr transdermal patch RxNorm: 266471 2 Application TD Q48H for pain 11/20/2014 12/24/2014 Inactive OneTouch Ultra Test strips RxNorm: TEST BLOOD SUGAR ONCE DAILY 250.00 11/16/2014 01/08/2016 Inactive omeprazole 40 mg capsule,delayed release RxNorm: 443891 1 Capsu le(s) PO QD 11/13/2014 11/12/2015 Inactive metformin ER 500 mg tablet,extended release 24 hr RxNorm: 86 0975 1 Tablet(s) PO QD 11/12/2014 02/11/2015 Inactive take one tablet by mouth every day Symbicort 160 mcg-4.5 mcg/actuation HFA aerosol inhaler RxNo rm: 1048709 2 Puff(s) INH BID 11/12/2014 03/11/2015 Inactive INHALE 2 PUFFS O RALLY TWO TIMES A DAY gabapentin 800 mg tablet RxNorm: 498991 1 Tablet(s) PO QD TAKE ONE TABLET BY MOUTH ONCE A DAY 10/22/2014 01/01/2015 Inactive Endocet 10 mg-325 mg tablet RxNorm: 7742157 1-2 Tablet(s) PO Q4H 11/15/2014 Inactive PRN PAIN Duragesic 100 mcg/hr transdermal patch RxNorm: 514373 2 Application TD Q48H for pain 10/17/2014 11/19/2014 Inactive gabapentin 800 mg tablet RxNorm: 933770 1 Tablet(s) PO QD TAKE ONE TABLET BY MOUTH ONCE A DAY 10/04/2014 10/21/2014 Inactive Premarin 0.9 mg tablet RxNorm: 315413 1 Tablet(s) PO QD TAKE ONE TABLET BY MOUTH ONCE A DAY 10/04/2014 01/01/2015 Inactive Spiriva with HandiHaler 18 mcg & inhalation capsules RxNorm: 825059 1 Capsule(s) INH QD 10/03/2014 04/30/2015 Inactive Levaquin 500 mg tablet RxNorm: 947525 1 Tablet(s) PO QD 10/03/2014 Inactive prednisone 20 mg tablet RxNorm: 513111 1 Tablet(s) PO QD 10/03/2014 1 12/09/2013 Inactive Duragesic 100 mcg/hr transdermal patch RxNorm: 785983 2 Application TD Q48H for pain 09/18/2014 10/16/2014 Inactive Endocet 10 mg-325 mg tablet RxNorm: 9782249 1-2 Tablet(s) PO Q4H 10/16/2014 Inactive PRN PAIN Synthroid 112 mcg tablet RxNorm: 879213 1 Tablet(s) QD 09/10/2014 Inactive Synthroid 112 mcg tablet RxNorm: 250584 TAKE ONE TABLET BY MOUTH ONE TIME A DAY. NEEDS LABS 09/10/2014 02/06/2015 Inactive omeprazole 40 mg capsule,delayed release RxNorm: 832861 1 Capsu le(s) PO QD 09/03/2014 11/13/2014 Inactive omeprazole 40 mg capsule,delayed release RxNorm: 955413 1 Capsu le(s) PO QD 09/03/2014 09/02/2014 Inactive Spiriva with HandiHaler 18 mcg & inhalation capsules RxNorm: 764922 1 Capsule(s) INH QD 08/27/2014 10/02/2014 Inactive gabapentin 600 mg tablet RxNorm: 787512 1 Tablet(s) PO BID 08/27/20 14 10/22/2014 Inactive Endocet 10 mg-325 mg tablet RxNorm: 4634262 1-2 Tablet(s) PO Q4H 09/17/2014 Inactive PRN PAIN fentanyl 100 mcg/hr transdermal patch RxNorm: 292419 1 Unit Dos e TD QD 08/21/2014 09/19/2014 Inactive Daliresp 500 mcg tablet RxNorm: 2966341 1 Tablet(s) PO QD 08/13/2014 02/11/2015 Inactive Synthroid 112 mcg tablet RxNorm: 677703 TAKE ONE TABLET BY MOUTH ONE TIME A DAY. NEEDS LABS 08/10/2014 09/10/2014 Inactive Endocet 10 mg-325 mg tablet RxNorm: 5567776 1-2 Tablet(s) PO Q4H 08/17/2014 Inactive PRN PAIN Duragesic 100 mcg/hr transdermal patch RxNorm: 436003 2 Application TD Q48H for pain 07/19/2014 09/17/2014 Inactive fluoxetine 40 mg capsule RxNorm: 149044 1 Capsule(s) PO QD 07/17/20 14 01/14/2015 Inactive TAKE ONE CAPSULE BY MOUTH EV JANKI MORNING fluoxetine 20 mg capsule RxNorm: 216603 1 Capsule(s) PO QD 07/17/20 14 01/14/2015 Inactive Spiriva with HandiHaler 18 mcg & inhalation capsules RxNorm: 054242 1 Capsule(s) INH QD 07/17/2014 08/26/2014 Inactive INHALE CONTENTS OF 1 CAPSULE(S) WITH HANDIHALER ONCE DAILY Zofran 4 mg tablet RxNorm: 583983 1 Tablet(s) PO Q4H prn nausea 07/25/2014 Inactive Synthroid 112 mcg tablet RxNorm: 236661 1 Tablet(s) PO QD 07/09/2014 07/09/2014 Inactive methocarbamol 750 mg tablet RxNorm: 052519 2 Tablet(s) PO TID as needed for muscle spasm 07/09/2014 09/06/2014 Inactive Synthroid 112 mcg tablet RxNorm: 431623 1 Tablet(s) PO QD - nee d labs 07/09/2014 08/07/2014 Inactive Medrol (Aníbal) 4 mg tablets in a dose pack RxNorm: 351029 6 Tablet(s) PO QD --then as directed 07/03/2014 07/08/2014 Inactive Tudorza Pressair 400 mcg/actuation breath activated RxNorm: 7635011 1 Puff(s) INH BID 07/03/2014 12/17/2014 Inactive cefdinir 300 mg capsule RxNorm: 091272 1 Capsule(s) PO BID 07/03/20 14 07/12/2014 Inactive Topamax 100 mg tablet RxNorm: 459769 Tablet(s) TAKE ONE TABLET BY MOUTH AT BEDTIME 07/02/2014 02/25/2015 Inactive Duragesic 100 mcg/hr transdermal patch RxNorm: 058448 2 Application TD Q48H for pain 06/25/2014 07/18/2014 Inactive Endocet 10 mg-325 mg tablet RxNorm: 2711407 1-2 Tablet(s) PO Q4H 07/18/2014 Inactive PRN PAIN metformin ER 500 mg tablet,extended release 24 hr RxNorm: 86 0975 1 Tablet(s) PO QD Needs labs 06/18/2014 07/01/2014 Inactive take one tablet by mouth every day Duragesic 100 mcg/hr transdermal patch RxNorm: 604981 2 Application TD Q48H for pain 05/22/2014 06/24/2014 Inactive Synthroid 112 mcg tablet RxNorm: 598913 1 Tablet(s) PO QD 05/22/2014 07/09/2014 Inactive Endocet 10 mg-325 mg tablet RxNorm: 5016140 1-2 Tablet(s) PO Q4H 06/20/2014 Inactive PRN PAIN Endocet 10 mg-325 mg tablet RxNorm: 3688798 1-2 Tablet(s) PO Q4H 05/21/2014 Inactive PRN PAIN Duragesic 100 mcg/hr transdermal patch RxNorm: 408704 2 Application TD Q48H for pain 04/25/2014 05/21/2014 Inactive Daliresp 500 mcg tablet RxNorm: 3201015 1 Tablet(s) PO QD 04/24/2014 08/13/2014 Inactive Symbicort 160 mcg-4.5 mcg/actuation HFA aerosol inhaler RxNo rm: 5705002 2 Puff(s) INH BID 04/24/2014 08/21/2014 Inactive INHALE 2 PUFFS O RALLY TWO TIMES A DAY metformin ER 500 mg tablet,extended release 24 hr RxNorm: 86 0975 1 Tablet(s) PO QD 04/24/2014 11/12/2014 Inactive TAKE ONE TABLET BY MOUTH EVERY DAY [AttnRPh:Saving Apply/Adjudicate RxGRP:LDMGRP RxBIN:[id number] RxPCN:2012 PCode: ID#:[id number]] Symbicort 160 mcg-4.5 mcg/actuation HFA aerosol inhaler RxNo rm: 2858861 2 Puff(s) INH BID 04/24/2014 11/12/2014 Inactive INHALE 2 PUFFS O RALLY TWO TIMES A DAY Premarin 0.9 mg tablet RxNorm: 644432 1 Tablet(s) PO QD 04/24/2014 Inactive TAKE ONE TABLET BY MOUTH EVERY DAY metformin ER 500 mg tablet,extended release 24 hr RxNorm: 86 0975 1 Tablet(s) PO QD Needs labs 04/24/2014 06/18/2014 Inactive TAKE ONE TABLET BY MOUTH EVERY DAY [AttnRPh:Saving Apply/Adjudicate RxGRP:LDMGRP RxBIN:[id number] RxPCN:2012 PCode: ID#:[id number]] gabapentin 800 mg tablet RxNorm: 845006 1 Tablet(s) PO QD 04/24/2014 10/04/2014 Inactive TAKE ONE TABLET BY MOUTH EVERY DAY Topamax 100 mg tablet RxNorm: 220587 1 Tablet(s) PO QHS 04/17/2014 Inactive Topamax 100 mg tablet RxNorm: 959773 TAKE ONE TABLET BY MOUTH A T BEDTIME 04/17/2014 07/01/2014 Inactive Tudorza Pressair 400 mcg/actuation breath activated RxNorm: 7301554 1 Puff(s) INH BID 04/11/2014 07/02/2014 Inactive Duragesic 100 mcg/hr transdermal patch RxNorm: 524077 2 Application TD Q48H for pain 03/27/2014 04/24/2014 Inactive Endocet 10 mg-325 mg tablet RxNorm: 3832206 1-2 Tablet(s) PO Q4H 04/24/2014 Inactive PRN PAIN Robaxin 750 mg tablet RxNorm: 914504 2 Tablet(s) PO TID as need ed for spasm 02/23/2014 03/28/2015 Inactive Duragesic 100 mcg/hr transdermal patch RxNorm: 936537 2 Application TD Q48H for pain 02/23/2014 No Stop Date Active Endocet 10 mg-325 mg tablet RxNorm: 2694193 1-2 Tablet(s) PO Q4H 03/23/2014 Inactive PRN PAIN Synthroid 112 mcg tablet RxNorm: 364911 1 Tablet(s) PO QD TAKE ONE TABLET BY MOUTH EVERY DAY 02/15/2014 05/22/2014 Inactive Zithromax 500 mg tablet RxNorm: 692365 1 Tablet(s) PO QD 01/30/2014 0 02/05/2014 Inactive Diflucan 100 mg tablet RxNorm: 222292 1 Tablet(s) PO QD 01/30/2014 Inactive prednisone 20 mg tablet RxNorm: 234029 1 Tablet(s) PO BID 01/30/2014 02/05/2014 Inactive fluoxetine 40 mg capsule RxNorm: 958112 1 Capsule(s) PO QD 01/23/20 14 07/16/2014 Inactive TAKE ONE CAPSULE BY MOUTH EV JANKI MORNING fluoxetine 40 mg capsule RxNorm: 033117 1 Capsule(s) PO QD 01/23/20 14 07/17/2014 Inactive TAKE ONE CAPSULE BY MOUTH EV JANKI MORNING cefdinir 300 mg capsule RxNorm: 180666 1 Capsule(s) PO BID 01/16/20 14 01/29/2014 Inactive Zithromax 500 mg tablet RxNorm: 831506 1 Tablet(s) PO QD 01/16/2014 0 01/22/2014 Inactive prednisone 20 mg tablet RxNorm: 071888 1 Tablet(s) PO BID 01/16/2014 01/22/2014 Inactive Spiriva with HandiHaler 18 mcg and inhalation capsules RxNor m: 571915 1 Capsule(s) INH QD 12/18/2013 07/17/2014 Inactive INHALE CONTENT S OF 1 CAPSULE(S) WITH HANDIHALER ONCE DAILY fluoxetine 20 mg capsule RxNorm: 122691 1 Capsule(s) PO QD 12/18/19 14 06/15/2014 Inactive Spiriva with HandiHaler 18 mcg & inhalation capsules RxNorm: 229097 1 Capsule(s) INH QD 12/18/2013 06/15/2014 Inactive INHALE CONTENTS OF 1 CAPSULE(S) WITH HANDIHALER ONCE DAILY fluoxetine 20 mg capsule RxNorm: 266029 1 Capsule(s) PO QD 12/18/19 14 07/17/2014 Inactive cefdinir 300 mg capsule RxNorm: 226851 2 Capsule(s) PO QD 12/12/2013 12/21/2013 Inactive Duragesic 100 mcg/hr transdermal patch RxNorm: 213829 2 Application TD Q48H for pain 12/08/2013 12/07/2013 Inactive Topamax 100 mg tablet RxNorm: 233803 1 Tablet(s) PO QHS 12/04/2013 Inactive Endocet 10 mg-325 mg tablet RxNorm: 2118697 1-2 Tablet(s) PO Q4H 12/26/2013 Inactive PRN PAIN Robaxin 750 mg tablet RxNorm: 002184 2 Tablet(s) PO TID as need ed for spasm 11/07/2013 01/05/2014 Inactive gabapentin 800 mg tablet RxNorm: 788102 1 Tablet(s) PO QD 10/16/2013 04/24/2014 Inactive TAKE ONE TABLET BY MOUTH EVERY DAY Symbicort 160 mcg-4.5 mcg/actuation HFA aerosol inhaler RxNo rm: 0512434 2 Puff(s) INH BID 10/16/2013 04/24/2014 Inactive INHALE 2 PUFFS O RALLY TWO TIMES A DAY Premarin 0.9 mg tablet RxNorm: 550349 1 Tablet(s) PO QD 10/16/2013 Inactive TAKE ONE TABLET BY MOUTH EVERY DAY metformin ER 500 mg tablet,extended release 24 hr RxNorm: 86 0975 1 Tablet(s) PO QD 10/16/2013 04/24/2014 Inactive TAKE ONE TABLET BY MOUTH EVERY DAY Daliresp 500 mcg tablet RxNorm: 7574818 1 Tablet(s) PO QD 10/16/2013 04/24/2014 Inactive Robaxin 750 mg tablet RxNorm: 363949 2 Tablet(s) PO TID as need ed for spasm 10/10/2013 11/06/2013 Inactive Duragesic 100 mcg/hr transdermal patch RxNorm: 472573 2 Application TD Q48H for pain 10/09/2013 No Stop Date Active Soma 350 mg tablet RxNorm: 598128 1 Tablet(s) PO TID 09/27/201310/09 Inactive TAKE ONE TABLET BY MOUTH THREE TIMES A D AY lactulose 10 gram/15 mL oral solution RxNorm: 547668 [address](s) PO QD 09/13/2013 03/07/2015 Inactive TAKE 1 TABLESPOON BY MOUTH ONCE DAILY Duragesic 100 mcg/hr transdermal patch RxNorm: 149086 2 Application TD Q48H for pain 09/06/2013 No Stop Date Active Endocet 10 mg-325 mg tablet RxNorm: 9080605 1-2 Tablet(s) PO Q4H 09/27/2013 Inactive PRN PAIN lancets 28 gauge RxNorm: Miscellaneous As needed for blo od glucose sticks 08/24/2013 No Stop Date Active 16.2 mg-0.1037 mg-0.0194 mg tablet RxNorm: 4561092 Tablet(s) PO PRN for gas and cramping 08/24/2013 01/19/2017 Inactive TAKE TWO TABLET S BY MOUTH THREE TIMES A DAY NEEDED FOR GAS AND CRAMPING Topamax 100 mg tablet RxNorm: 533580 1 Tablet(s) PO QHS 07/31/2013 Inactive Diflucan 100 mg tablet RxNorm: 265469 1 Tablet(s) PO QD 07/27/2013 Inactive cefdinir 300 mg capsule RxNorm: 975237 1 Capsule(s) PO BID 07/26/20 13 08/08/2013 Inactive Daliresp 500 mcg tablet RxNorm: 5497007 1 Tablet(s) PO QD 07/25/2013 10/15/2013 Inactive fluoxetine 40 mg capsule RxNorm: 223944 1 Capsule(s) PO QD 07/25/20 13 01/22/2014 Inactive TAKE ONE CAPSULE BY MOUTH EV JANKI MORNING Senokot-S 8.6 mg-50 mg tablet RxNorm: 5118183 1 Tablet(s) PO BID 10/25/2013 Inactive doxycycline hyclate 100 mg capsule RxNorm: 6305431 1 Capsule(s) PO BID 06/28/2013 07/07/2013 Inactive prednisone 20 mg tablet RxNorm: 190486 1 Tablet(s) PO BID 06/28/2013 07/04/2013 Inactive Zofran 4 mg tablet RxNorm: 864190 1 Tablet(s) PO Q4H prn nausea 03/201307/05/2013 Inactive Spiriva with HandiHaler 18 mcg & inhalation capsules RxNorm: 395567 1 Capsule(s) INH QD 06/26/2013 12/18/2013 Inactive INHALE CONTENTS OF 1 CAPSULE(S) WITH HANDIHALER ONCE DAILY Synthroid 112 mcg tablet RxNorm: 426456 1 Tablet(s) PO QD TAKE ONE TABLET BY MOUTH EVERY DAY 06/19/2013 02/15/2014 Inactive fluoxetine 20 mg capsule RxNorm: 437966 1 Capsule(s) PO QD 06/19/2012/18/2013 Inactive Ventolin HFA 90 mcg/actuation Aerosol Inhaler RxNorm: 8956494 2 Puff(s) INH Q4H 06/05/2013 No Stop Date Active prn Soma 350 mg tablet RxNorm: 351631 1 Tablet(s) PO TID 06/05/201307/04 Inactive TAKE ONE TABLET BY MOUTH THREE TIMES A D AY prednisone 20 mg tablet RxNorm: 818949 1 Tablet(s) PO QD 05/31/2013 0 06/06/2013 Inactive Topamax 100 mg tablet RxNorm: 859336 1 Tablet(s) PO QHS 05/22/2013 Inactive Levaquin 500 mg tablet RxNorm: 899276 1 Tablet(s) PO QD 05/03/2013 Inactive Diflucan 100 mg tablet RxNorm: 002686 1 Tablet(s) PO QD 05/03/2013 Inactive Daliresp 500 mcg tablet RxNorm: 2300313 1 Tablet(s) PO QD 05/01/2013 07/24/2013 Inactive Daliresp 500 mcg tablet RxNorm: 0058785 1 Tablet(s) PO QD 05/01/2013 04/30/2013 Inactive gabapentin 800 mg tablet RxNorm: 310404 1 Tablet(s) PO QD 04/10/2013 10/06/2013 Inactive TAKE ONE TABLET BY MOUTH EVERY DAY metformin ER 500 mg tablet,extended release 24 hr RxNorm: 86 0977 1 Tablet(s) PO QD 04/10/2013 10/06/2013 Inactive TAKE ONE TABLET BY MOUTH EVERY DAY Premarin 0.9 mg tablet RxNorm: 932271 1 Tablet(s) PO QD 04/10/2013 Inactive TAKE ONE TABLET BY MOUTH EVERY DAY Symbicort 160 mcg-4.5 mcg/actuation HFA aerosol inhaler RxNo rm: 7745635 2 Puff(s) INH BID 04/10/2013 10/06/2013 Inactive INHALE 2 PUFFS O RALLY TWO TIMES A DAY Synthroid 112 mcg tablet RxNorm: 335044 1 Tablet(s) PO QD TAKE ONE TABLET BY MOUTH EVERY DAY 04/10/2013 06/18/2013 Inactive Ventolin HFA 90 mcg/actuation Aerosol Inhaler RxNorm: 956097 2 Puff(s) INH Q4H 04/10/2013 No Stop Date Active prn fentanyl 100 mcg/hr transdermal patch RxNorm: 908575 1 Unit Dos e TD QD 04/03/2013 05/02/2013 Inactive Endocet 10 mg-325 mg tablet RxNorm: 9829373 1-2 Tablet(s) PO Q4H 05/02/2013 Inactive PRN PAIN Topamax 100 mg tablet RxNorm: 001823 1 Tablet(s) PO QHS 03/13/2013 Inactive Reglan 10 mg tablet RxNorm: 046277 1 Tablet(s) PO QID b efore meals and at bedtime 03/13/2013 04/09/2015 Inactive fluoxetine 20 mg capsule RxNorm: 691293 1 Capsule(s) PO QD 02/28/20 13 05/27/2013 Inactive Ventolin HFA 90 mcg/actuation Aerosol Inhaler RxNorm: 910320 2 Puff(s) INH Q4H 02/13/2013 No Stop Date Active prn fluoxetine 40 mg capsule RxNorm: 063541 1 Capsule(s) PO QD 01/31/20 13 07/24/2013 Inactive TAKE ONE CAPSULE BY MOUTH EV JANKI MORNING Soma 350 mg tablet RxNorm: 900536 1 Tablet(s) PO TID 01/20/201302/18 Inactive TAKE ONE TABLET BY MOUTH THREE TIMES A D AY Endocet 10 mg-325 mg tablet RxNorm: 6116759 1-2 Tablet(s) PO Q4H 02/06/2013 Inactive PRN PAIN MS Contin 200 mg tablet,extended release RxNorm: 628511 1 Table t(s) PO BID 01/18/2013 02/06/2013 Inactive Ventolin HFA 90 mcg/actuation Aerosol Inhaler RxNorm: 788206 2 Puff(s) INH Q4H 01/04/2013 No Stop Date Active prn Spiriva with HandiHaler 18 mcg & inhalation capsules RxNorm: 510027 1 Capsule(s) INH QD 12/29/2012 06/25/2013 Inactive INHALE CONTENTS OF 1 CAPSULE(S) WITH HANDIHALER ONCE DAILY Spiriva with HandiHaler 18 mcg & inhalation capsules RxNorm: 041728 1 Capsule(s) INH QD 12/26/2012 12/28/2012 Inactive INHALE CONTENTS OF 1 CAPSULE(S) WITH HANDIHALER ONCE DAILY Synthroid 112 mcg tablet RxNorm: 681928 Tablet(s) PO TA KE ONE TABLET BY MOUTH EVERY DAY 12/26/2012 04/09/2013 Inactive Endocet 10 mg-325 mg tablet RxNorm: 7948507 1-2 Tablet(s) PO Q4H 01/17/2013 Inactive PRN PAIN MS Contin 200 mg tablet,extended release RxNorm: 927537 1 Table t(s) PO BID 12/21/2012 01/17/2013 Inactive fluoxetine 20 mg capsule RxNorm: 491696 1 Capsule(s) PO QD 12/06/19 13 02/26/2013 Inactive Synthroid 112 mcg tablet RxNorm: 850729 1 Tablet(s) PO QD 12/06/2012 02/12/2019 Inactive TAKE ONE TABLET BY MOUTH EVERY DAY Ventolin HFA 90 mcg/actuation Aerosol Inhaler RxNorm: 034257 2 Puff(s) INH Q4H 12/06/2012 No Stop Date Active prn Reglan 10 mg tablet RxNorm: 050345 1 Tablet(s) PO QID b efore meals and at bedtime 11/24/2012 03/12/2013 Inactive Topamax 100 mg tablet RxNorm: 757581 1 Tablet(s) PO QHS 11/16/2012 Inactive Ventolin HFA 90 mcg/actuation Aerosol Inhaler RxNorm: 892419 2 Puff(s) INH Q4H 11/09/2012 No Stop Date Active prn gabapentin 800 mg tablet RxNorm: 286452 1 Tablet(s) PO QD 10/27/2012 04/09/2013 Inactive TAKE ONE TABLET BY MOUTH EVERY DAY metformin ER 500 mg tablet,extended release 24 hr RxNorm: 86 0977 1 Tablet(s) PO QD 10/27/2012 04/09/2013 Inactive TAKE ONE TABLET BY MOUTH EVERY DAY Symbicort 160 mcg-4.5 mcg/actuation HFA Aerosol Inhaler RxNo rm: 1267085 2 Puff(s) INH BID 10/27/2012 04/09/2013 Inactive INHALE 2 PUFFS O RALLY TWO TIMES A DAY Premarin 0.9 mg tablet RxNorm: 498072 1 Tablet(s) PO QD 10/27/2012 Inactive TAKE ONE TABLET BY MOUTH EVERY DAY Endocet 10 mg-325 mg tablet RxNorm: 5867830 1-2 Tablet(s) PO Q4H 11/24/2012 Inactive PRN PAIN MS Contin 200 mg tablet,extended release RxNorm: 062998 1 Table t(s) PO BID 10/26/2012 11/24/2012 Inactive Soma 350 mg tablet RxNorm: 499482 1 Tablet(s) PO TID 10/04/201211/02 Inactive TAKE ONE TABLET BY MOUTH THREE TIMES A D AY Ventolin HFA 90 mcg/actuation Aerosol Inhaler RxNorm: 340196 2 Puff(s) INH Q4H 10/03/2012 No Stop Date Active prn Daliresp 500 mcg tablet RxNorm: 9383067 1 Tablet(s) PO QD 09/28/2012 09/27/2012 Inactive Daliresp 500 mcg tablet RxNorm: 1033583 1 Tablet(s) PO QD 09/28/2012 04/25/2013 Inactive fluoxetine 20 mg capsule RxNorm: 180415 1 Capsule(s) PO QD 09/05/20 12 12/06/2012 Inactive Topamax 50 mg tablet RxNorm: 692696 Tablet(s) PO for 1w k then 1 po q HS for 1wk then 2 po q HS 08/29/2012 09/27/2012 Inactive TAKE 1/2 TABLET BY MOUTH AT BEDTIME FOR 1 WEEK, THEN 1 TABLET AT BEDTIME FOR 1 WEEK, THEN 2 TABLETS AT BEDTIME Topamax 100 mg tablet RxNorm: 008743 1 Tablet(s) PO QHS 08/29/2012 Inactive Ventolin HFA 90 mcg/actuation Aerosol Inhaler RxNorm: 602018 2 Puff(s) INH Q4H 08/19/2012 No Stop Date Active prn Ventolin HFA 90 mcg/actuation Aerosol Inhaler RxNorm: 916752 2 Puff(s) INH Q4H 08/15/2012 No Stop Date Active prn Synthroid 112 mcg tablet RxNorm: 475300 1 Tablet(s) PO QD 08/10/2012 11/07/2012 Inactive TAKE ONE TABLET BY MOUTH EVERY DAY Synthroid 112 mcg tablet RxNorm: 697057 1 Tablet(s) PO QD 08/01/2012 08/09/2012 Inactive TAKE ONE TABLET BY MOUTH EVERY DAY Reglan 10 mg tablet RxNorm: 604907 1 Tablet(s) PO QID b efore meals and at bedtime 08/01/2012 11/23/2012 Inactive fluoxetine 40 mg capsule RxNorm: 929942 1 Capsule(s) PO QD 08/01/2001/27/2013 Inactive TAKE ONE CAPSULE BY MOUTH EV JANKI MORNING Ventolin HFA 90 mcg/actuation Aerosol Inhaler RxNorm: 081072 2 Puff(s) INH Q4H 08/01/2012 No Stop Date Active prn Soma 350 mg tablet RxNorm: 188234 1 Tablet(s) PO TID 07/20/201208/18 Inactive TAKE ONE TABLET BY MOUTH THREE TIMES A D AY Spiriva with HandiHaler 18 mcg & inhalation capsules RxNorm: 704791 1 Capsule(s) INH 07/01/2012 12/25/2012 Inactive INHALE CONTENTS OF 1 CAPSULE(S) WITH HANDIHALER ONCE DAILY Zithromax 250 mg Tab RxNorm: 349681 2 Tablet(s) PO QD 06/28/201206/22 Inactive MS Contin 200 mg tablet,extended release RxNorm: 164286 1 Table t(s) PO BID 06/28/2012 07/27/2012 Inactive Endocet 10 mg-325 mg tablet RxNorm: 9639168 1-2 Tablet(s) PO Q4H 07/27/2012 Inactive PRN PAIN Topamax 100 mg tablet RxNorm: 299471 1 Tablet(s) PO QHS 06/28/2012 Inactive 16.2 mg-0.1037 mg-0.0194 mg tablet RxNorm: 3768380 Tablet(s) PO PRN for gas and cramping 06/08/2012 08/23/2013 Inactive TAKE TWO TABLET S BY MOUTH THREE TIMES A DAY NEEDED FOR GAS AND CRAMPING Ventolin HFA 90 mcg/actuation Aerosol Inhaler RxNorm: 077275 2 Puff(s) INH Q4H 05/23/2012 No Stop Date Active prn Ventolin HFA 90 mcg/actuation Aerosol Inhaler RxNorm: 005287 2 Puff(s) INH Q4H 05/11/2012 No Stop Date Active prn Synthroid 112 mcg tablet RxNorm: 634999 1 Tablet(s) PO QD 05/09/2012 07/31/2012 Inactive TAKE ONE TABLET BY MOUTH EVERY DAY gabapentin 800 mg tablet RxNorm: 095050 1 Tablet(s) PO QD 05/09/2012 10/26/2012 Inactive TAKE ONE TABLET BY MOUTH EVERY DAY fluoxetine 40 mg capsule RxNorm: 755643 1 Capsule(s) PO QD 05/09/2007/31/2012 Inactive TAKE ONE CAPSULE BY MOUTH EV JANKI MORNING metformin ER 500 mg tablet,extended release 24 hr RxNorm: 86 0977 1 Tablet(s) PO QD 05/09/2012 10/26/2012 Inactive TAKE ONE TABLET BY MOUTH EVERY DAY Premarin 0.9 mg tablet RxNorm: 987488 1 Tablet(s) PO QD 05/09/2012 Inactive TAKE ONE TABLET BY MOUTH EVERY DAY Symbicort 160 mcg-4.5 mcg/actuation HFA Aerosol Inhaler RxNo rm: 8501773 2 Puff(s) INH BID 05/09/2012 10/26/2012 Inactive INHALE 2 PUFFS O RALLY TWO TIMES A DAY Endocet 10 mg-325 mg Tab RxNorm: 5962993 1-2 Tablet(s) PO Q4H 04/2705/26/2012 Inactive PRN PAIN MS Contin 200 mg Tab RxNorm: 936332 1 Tablet(s) PO BID 04/26/201202/2012 Inactive Ventolin HFA 90 mcg/actuation Aerosol Inhaler RxNorm: 241332 2 Puff(s) INH Q4H 04/25/2012 05/10/2012 Inactive prn Soma 350 mg tablet RxNorm: 989018 2 Tablet(s) PO TID 04/19/201207/19 Inactive TAKE ONE TABLET BY MOUTH THREE TIMES A D AY Ventolin HFA 90 mcg/actuation Aerosol Inhaler RxNorm: 169363 2 Puff(s) INH Q4H 04/12/2012 04/24/2012 Inactive prn Reglan 10 mg tablet RxNorm: 096463 1 Tablet(s) PO QID b efore meals and at bedtime 04/11/2012 07/31/2012 Inactive MS Contin 200 mg Tab RxNorm: 530324 1 Tablet(s) PO BID 03/30/201202/2012 Inactive Endocet 10 mg-325 mg Tab RxNorm: 1039766 1-2 Tablet(s) PO Q4H 03/3004/26/2012 Inactive PRN PAIN MS Contin 200 mg Tab RxNorm: 177092 1 Tablet(s) PO BID 03/02/201206/2012 Inactive Endocet 10 mg-325 mg Tab RxNorm: 7672782 1-2 Tablet(s) PO Q4H 03/0203/29/2012 Inactive PRN PAIN Daliresp 500 mcg tablet RxNorm: 6193913 1 Tablet(s) PO QD 03/01/2012 09/28/2012 Inactive MS Contin 200 mg Tab RxNorm: 648957 1 Tablet(s) PO BID 02/02/201208/2012 Inactive Endocet 10 mg-325 mg Tab RxNorm: 3288388 1-2 Tablet(s) PO Q4H 02/0103/01/2012 Inactive PRN PAIN fluoxetine 40 mg capsule RxNorm: 574725 1 Capsule(s) PO QD 02/02/2008/01/2012 Inactive TAKE ONE CAPSULE BY MOUTH EV JANKI MORNING Synthroid 112 mcg Tab RxNorm: 376818 1 Tablet(s) PO QD 01/18/2012 Inactive TAKE ONE TABLET BY MOUTH EVERY DAY lactulose 10 gram/15 mL oral solution RxNorm: 781562 [address]) PO QD 01/18/2012 No Stop Date Active TAKE 1 TABLESPOON BY MOUTH ONCE DAILY Ventolin HFA 90 mcg/actuation Aerosol Inhaler RxNorm: 467121 2 Puff(s) INH Q4H 01/18/2012 04/11/2012 Inactive prn MS Contin 200 mg Tab RxNorm: 384640 1 Tablet(s) PO BID 01/05/201210/2012 Inactive Endocet 10 mg-325 mg Tab RxNorm: 4685764 1-2 Tablet(s) PO Q4H 01/0502/01/2012 Inactive PRN PAIN ProAir HFA 90 mcg/Actuation Aerosol Inhaler RxNorm: 643044 2 Pu ff(s) INH Q4H 12/21/2011 No Stop Date Active prn for wheezing or shortness of breath Spiriva with HandiHaler 18 mcg & inhalation Caps RxNorm: 580 261 1 Capsule(s) INH 12/21/2011 06/30/2012 Inactive INHALE CONTENTS OF 1 CAPSULE(S) WITH HANDIHALER ONCE DAILY Reglan 10 mg Tab RxNorm: 722348 1 Tablet(s) PO QID before meals and at bedtime 12/21/2011 04/10/2012 Inactive Synthroid 112 mcg Tab RxNorm: 333958 1 Tablet(s) PO QD 12/21/2011 Inactive TAKE ONE TABLET BY MOUTH EVERY DAY Endocet 10 mg-325 mg Tab RxNorm: 0359958 1-2 Tablet(s) PO Q4H 11/2512/24/2011 Inactive PRN PAIN MS Contin 200 mg Tab RxNorm: 035719 1 Tablet(s) PO BID 11/25/201112/2011 Inactive lactulose 10 gram/15 mL Oral Soln RxNorm: 608373 Milliliter(s) PO 1 No Stop Date Active TAKE 1 TABLESPOON BY MOUTH O NCE DAILY lactulose 10 gram/15 mL Oral Soln RxNorm: 864791 Milliliter(s) PO 1 12/12/2010 11/20/2011 Inactive TAKE 1 TABLESPOON BY MOUTH O NCE DAILY Premarin 0.9 mg Tab RxNorm: 130446 1 Tablet(s) PO QD 10/12/201105/08 Inactive TAKE ONE TABLET BY MOUTH EVERY DAY fluoxetine 20 mg capsule RxNorm: 832051 1 Capsule(s) PO QD 10/12/2009/05/2012 Inactive TAKE ONE CAPSULE BY MOUTH EV JANKI DAY Synthroid 112 mcg Tab RxNorm: 548523 1 Tablet(s) PO QD 10/12/2011 Inactive TAKE ONE TABLET BY MOUTH EVERY DAY metformin ER 500 mg 24 hr Tab RxNorm: 057473 1 Tablet(s) PO QD 09/2311/10/2011 Inactive TAKE ONE TABLET BY MOUTH GLYNN RY DAY Synthroid 112 mcg Tab RxNorm: 967478 1 Tablet(s) PO QD 10/12/2011 Inactive TAKE ONE TABLET BY MOUTH EVERY DAY metformin ER 500 mg 24 hr Tab RxNorm: 241780 1 Tablet(s) PO QD 09/2310/11/2011 Inactive TAKE ONE TABLET BY MOUTH GLYNN RY DAY Prevacid 30 mg Cap RxNorm: 642631 Capsule(s) PO 10/12/2011 01/25/2012 Inactive TAKE ONE CAPSULE BY MOUTH EVERY DAY Symbicort 160 mcg-4.5 mcg/actuation HFA Aerosol Inhaler RxNo rm: [id number] 2 Puff(s) INH BID 10/12/2011 05/08/2012 Inactive INHALE 2 PUFFS O RALLY TWO TIMES A DAY gabapentin 800 mg Tab RxNorm: 043368 1 Tablet(s) PO QD 10/12/2011 Inactive TAKE ONE TABLET BY MOUTH EVERY DAY MS Contin 200 mg Tab RxNorm: 183620 1 Tablet(s) PO BID 09/23/201111/2010 Inactive Endocet 10 mg-325 mg Tab RxNorm: 6771279 1-2 Tablet(s) PO Q4H 09/2310/22/2011 Inactive PRN PAIN Endocet 10 mg-325 mg Tab RxNorm: 4249589 1-2 Tablet(s) PO Q4H 08/2109/19/2011 Inactive PRN PAIN MS Contin 200 mg Tab RxNorm: 738979 1 Tablet(s) PO BID 08/21/2011 Inactive Diflucan 100 mg Tab RxNorm: 743982 1 Tablet(s) PO QD 08/10/201108/16 Inactive cefdinir 300 mg Cap RxNorm: 503103 2 Capsule(s) PO QD 08/10/201107/24 Inactive Reglan 10 mg Tab RxNorm: 704006 1 Tablet(s) PO AC & HS 07/15/2011 Inactive Endocet 10 mg-325 mg Tab RxNorm: 8287958 1-2 Tablet(s) PO Q4H 07/1508/13/2011 Inactive PRN PAIN One Touch Ultra Test strips RxNorm: Miscellaneous BID 06/11/2011 1 01/16/2014 Inactive TEST TWO TIMES A DAY lactulose 10 gram/15 mL Oral Soln RxNorm: 484860 Milliliter(s) PO 0 06/10/2011 10/11/2011 Inactive TAKE 1 TABLESPOON BY MOUTH O NCE DAILY Chantix Continuing Month Aníbal 1 mg Tab RxNorm: 534670 Tablet(s) PO 0 06/10/2011 11/02/2011 Inactive TAKE DIRECTED - PER [employer] INSTRUCTIONS fluoxetine 40 mg Cap RxNorm: 158800 Capsule(s) PO 06/10/2011 02/02/20 Inactive TAKE ONE CAPSULE BY MOUTH EVERY MORNING Chantix Continuing Month Aníbal 1 mg Tab RxNorm: 964686 Ta blet(s) PO TAKE DIRECTED - PER PACKAGE INSTRUCTIONS 05/13/2011 06/09/2011 Inactive Soma 350 mg Tab RxNorm: 794916 Tablet(s) PO TAKE ON E TABLET BY MOUTH THREE TIMES A DAY 05/13/2011 04/18/2012 Inactive Chantix Continuing Month Aníbal 1 mg Tab RxNorm: 440476 Ta blet(s) PO as directed per package instructions. 04/22/2011 05/12/2011 Inactive Symbicort 160 mcg-4.5 mcg/Actuation HFA Aerosol Inhaler RxNo rm: [id number] HFA Aerosol Inhaler INH INHALE 2 PUFFS ORALLY TWO TIMES A DAY 04/13/2011 Inactive Synthroid 112 mcg Tab RxNorm: 047216 Tablet(s) PO TAKE ONE TABLET BY MOUTH EVERY DAY 04/13/2011 10/12/2011 Inactive Premarin 0.9 mg Tab RxNorm: 908927 Tablet(s) PO TAKE ON E TABLET BY MOUTH EVERY DAY 04/13/2011 10/12/2011 Inactive gabapentin 800 mg Tab RxNorm: 395399 Tablet(s) PO TAKE ONE TABLET BY MOUTH EVERY DAY 04/13/2011 10/12/2011 Inactive Prevacid 30 mg Cap RxNorm: 694559 1 Capsule(s) PO QD 04/13/201110/11 Inactive Spiriva with HandiHaler 18 mcg & inhalation Caps RxNorm: 580 261 Capsule(s) INH INHALE CONTENTS OF 1 CAPSULE(S) WITH HANDIHALER ONCE DAILY 04/13/2011 12/21/2011 Inactive metformin ER 500 mg 24 hr Tab RxNorm: 220566 Tablet(s) PO TAKE ONE TABLET BY MOUTH EVERY DAY 04/13/2011 10/12/2011 Inactive Soma 350 mg Tab RxNorm: 156068 1 Tablet(s) PO QID 03/30/2011 02/13/20 19 Inactive fluoxetine 20 mg Cap RxNorm: 675146 Capsule(s) PO TAKE ONE CAPSULE BY MOUTH EVERY DAY 03/25/2011 10/12/2011 Inactive cefdinir 300 mg Cap RxNorm: 055244 2 Capsule(s) PO QD 03/19/201105/2011 Inactive 16.2 mg-0.1037 mg-0.0194 mg Tab RxNorm: 1219244 2 Tablet(s) PO TID PRN for gas and cramping 03/16/2011 07/13/2011 Inactive Soma 350 mg Tab RxNorm: 498633 2 Tablet(s) PO TID 03/16/2011 03/29/20 11 Inactive Chantix Starting Month Aníbal 0.5 mg (11)-1 mg (3x14) Tab s in a Dose Pack RxNorm: 954525 Tablet(s) PO as directed 03/02/2011 No Stop Date Active diazepam 10 mg Tab RxNorm: 511443 1 Tablet(s) PO BID 02/10/201101/19 Inactive Zofran 4 mg tablet RxNorm: 888932 1 Tablet(s) PO Q4H prn nausea 02/16/2011 Inactive Diflucan 100 mg Tab RxNorm: 640415 1 Tablet(s) PO QD 01/18/201101/24 Inactive Premarin 0.625 mg/g Vaginal Cream RxNorm: 550771 VAG In sert 1gm vaginally at bedtime 3 times weekly 01/18/2011 02/12/2019 Inactive loratadine 10 mg Tab RxNorm: 4881344 1 Tablet(s) PO QD 12/17/201003/2012 Inactive Spiriva with HandiHaler 18 mcg & inhalation Caps RxNorm: 580 261 1 Capsule(s) INH QD 12/17/2010 04/12/2011 Inactive Diflucan 100 mg Tab RxNorm: 118082 1 Tablet(s) PO QD 12/17/201012/23 Inactive diazepam 10 mg Tab RxNorm: 190326 1 Tablet(s) PO BID and PRN 201002/12/2019 Inactive One Touch Ultra Test Strips RxNorm: InVt BID Zainab t blood sugar at least twice daily. 11/11/2010 06/11/2011 Inactive fluoxetine 40 mg Cap RxNorm: 987670 1 Capsule(s) PO QAM 11/11/2010 Inactive diazepam 10 mg Tab RxNorm: 707826 1 Tablet(s) PO BID and PRN 200911/12/2010 Inactive Bactrim DS 800 mg-160 mg Tab RxNorm: 562715 1 Tablet(s) PO BID 09/2210/15/2010 Inactive fluoxetine 20 mg Cap RxNorm: 388176 1 Capsule(s) PO QD 10/02/201008/2011 Inactive Bactrim DS 800 mg-160 mg Tab RxNorm: 185661 1 Tablet(s) PO BID 01/201010/03/2010 Inactive Zofran 4 mg Tab RxNorm: 664526 1 Tablet(s) PO Q4H prn nausea 200910/16/2010 Inactive 16.2 mg-0.1037 mg-0.0194 mg Tab RxNorm: 1286086 2 Tablet(s) PO TID PRN for gas and cramping 09/17/2010 10/21/2010 Inactive Gabapentin 800 mg Tab RxNorm: 202783 1 Tablet(s) PO QD 09/16/2010 Inactive ProAir HFA 90 mcg/Actuation Aerosol Inhaler RxNorm: 168453 2 Puff(s) INH Q4H prn shortness of breath 09/15/2010 12/13/2010 Inactive gabapentin 800 mg Tab RxNorm: 037647 1 Tablet(s) PO QD 09/15/2010 Inactive Prevacid 30 mg Cap RxNorm: 559200 1 Capsule(s) PO QD 09/15/201004/12 Inactive loratadine 10 mg Tab RxNorm: 5270225 1 Tablet(s) PO QD 09/15/2010 Inactive Premarin 0.9 mg Tab RxNorm: 665080 1 Tablet(s) PO QD 09/15/201004/12 Inactive Synthroid 112 mcg Tab RxNorm: 835657 1 Tablet(s) PO QD 09/15/2010 Inactive metformin ER 500 mg 24 hr Tab RxNorm: 756873 1 Tablet(s) PO QD 08/2304/12/2011 Inactive Symbicort 160 mcg-4.5 mcg/Actuation Inhalation HFA Aer osol Inhaler RxNorm: 2402861 2 Puff(s) INH BID 09/15/2010 04/12/2011 Inactive diazepam 10 mg Tab RxNorm: 024516 1 Tablet(s) PO BID and PRN 200910/13/2010 Inactive Phentermine 37.5 mg Cap RxNorm: 669784 1 Capsule(s) PO QD 09/02/2010 11/02/2011 Inactive ProAir HFA 90 mcg/Actuation Aerosol Inhaler RxNorm: 046659 2 Puff(s) INH Q4H prn shortness of breath 08/07/2010 No Stop Date Active Premarin 0.9 mg Tab RxNorm: 322577 1 Tablet(s) PO QD 08/07/201009/14 Inactive Loratadine 10 mg Tab RxNorm: 0424706 1 Tablet(s) PO QD 08/07/2010 Inactive Lactulose 10 gram/15 mL Oral Soln RxNorm: 499162 1 Unit Dose PO QD 08/07/2010 02/12/2019 Inactive Zofran 4 mg Tab RxNorm: 113067 1 Tablet(s) PO Q4H prn nausea 2009 No Stop Date Active Gabapentin 800 mg Tab RxNorm: 329245 1 Tablet(s) PO QD 08/07/2010 Inactive Synthroid 112 mcg Tab RxNorm: 503145 1 Tablet(s) PO QD 08/07/2010 Inactive Metformin ER 500 mg 24 hr Tab RxNorm: 577719 1 Tablet(s) PO QD 07/2309/14/2010 Inactive Vitamin D 1,000 unit Tab RxNorm: 972761 1 Tablet(s) PO TID 08/07/2002/12/2019 Inactive Symbicort 160 mcg-4.5 mcg/Actuation Inhalation HFA Aer osol Inhaler RxNorm: 2266402 2 Puff(s) INH BID 08/07/2010 09/14/2010 Inactive Prevacid 30 mg Cap RxNorm: 135461 1 Capsule(s) PO QD 08/07/201009/14 Inactive Metformin ER 500 mg 24 hr Tab RxNorm: 745406 1 Tablet(s) PO QD 06/2308/06/2010 Inactive Vitamin D 1,000 unit Tab RxNorm: 191259 1 Tablet(s) PO TID 07/14/2008/06/2010 Inactive Synthroid 112 mcg Tab RxNorm: 714926 1 Tablet(s) PO QD 07/14/2010 Inactive Lactulose 10 gram/15 mL Oral Soln RxNorm: 578271 1 Unit Dose PO QD 07/14/2010 08/06/2010 Inactive Levaquin 500 mg Tab RxNorm: 332743 1 Tablet(s) PO QD 07/14/201007/27 Inactive Premarin 0.9 mg Tab RxNorm: 298358 1 Tablet(s) PO QD 07/14/201008/06 Inactive ProAir HFA 90 mcg/Actuation Aerosol Inhaler RxNorm: 280505 2 Puff(s) INH Q4H prn shortness of breath 07/14/2010 No Stop Date Active Prevacid 30 mg Cap RxNorm: 878635 1 Capsule(s) PO QD 07/14/201008/06 Inactive Zofran 4 mg Tab RxNorm: 334149 1 Tablet(s) PO Q4H prn nausea 2009 No Stop Date Active Symbicort 160 mcg-4.5 mcg/Actuation Inhalation HFA Aer osol Inhaler RxNorm: 5354044 2 Puff(s) INH BID 07/14/2010 08/06/2010 Inactive Loratadine 10 mg Tab RxNorm: 6313099 1 Tablet(s) PO QD 07/14/2010 Inactive Gabapentin 800 mg Tab RxNorm: 130019 1 Tablet(s) PO QD 07/14/2010 Inactive Metformin ER 500 mg 24 hr Tab RxNorm: 419862 1 Tablet(s) PO 010 07/13/2010 Inactive Diazepam 10 mg Tab RxNorm: 611422 1 Tablet(s) PO BID and PRN 200909/06/2010 Inactive Premarin 0.9 mg Tab RxNorm: 272468 1 Tablet(s) PO QD 06/09/201007/13 Inactive Zofran 4 mg Tab RxNorm: 195215 1 Tablet(s) PO Q4H prn nausea 2009 No Stop Date Active ProAir HFA 90 mcg/Actuation Aerosol Inhaler RxNorm: 738115 2 Puff(s) INH Q4H prn shortness of breath 06/09/2010 No Stop Date Active Gabapentin 800 mg Tab RxNorm: 942143 1 Tablet(s) PO QD 06/09/2010 Inactive Loratadine 10 mg Tab RxNorm: 0481133 1 Tablet(s) PO QD 06/09/2010 Inactive Lactulose 10 gram/15 mL Oral Soln RxNorm: 291756 1 Unit Dose PO QD 06/09/2010 07/13/2010 Inactive Prevacid 30 mg Cap RxNorm: 520656 1 Capsule(s) PO QD 06/09/201007/13 Inactive Synthroid 112 mcg Tab RxNorm: 703331 1 Tablet(s) PO QD 06/09/2010 Inactive Symbicort 160 mcg-4.5 mcg/Actuation Inhalation HFA Aer osol Inhaler RxNorm: 5065272 2 Puff(s) INH BID 06/09/2010 07/13/2010 Inactive Omnicef 300 mg Cap RxNorm: 642516 2 Capsule(s) PO QD 05/07/201005/20 Inactive Metformin 500 mg Tab RxNorm: 964685 1 Tablet(s) PO QD 05/06/201005/22 Inactive ProAir HFA 90 mcg/Actuation Aerosol Inhaler RxNorm: 645291 2 Puff(s) INH Q4H prn shortness of breath 05/06/2010 No Stop Date Active lactulose 10 gram/15 mL Oral Soln RxNorm: 666710 1 Unit Dose PO QD 05/06/2010 06/10/2011 Inactive Loratadine 10 mg Tab RxNorm: 2027257 1 Tablet(s) PO QD 05/06/2010 Inactive Synthroid 112 mcg Tab RxNorm: 452212 1 Tablet(s) PO QD 05/06/2010 Inactive Symbicort 160 mcg-4.5 mcg/Actuation Inhalation HFA Aer osol Inhaler RxNorm: 4620002 2 Puff(s) INH BID 05/06/2010 06/08/2010 Inactive Gabapentin 800 mg Tab RxNorm: 436247 1 Tablet(s) PO QD 05/06/2010 Inactive 16.2 mg-0.1037 mg-0.0194 mg Tab RxNorm: 9984933 2 Tablet(s) PO TID PRN for gas and cramping 05/06/2010 05/12/2010 Inactive Zofran 4 mg Tab RxNorm: 336974 1 Tablet(s) PO Q4H prn nausea 200904/13/2010 Inactive MS Contin 60 mg tablet,extended release RxNorm: 516804 3 Tablet (s) PO BID 04/09/2010 05/08/2010 Inactive Soma 350 mg Tab RxNorm: 271873 2 Tablet(s) PO TID 04/09/2010 05/08/20 10 Inactive Symbicort 160 mcg-4.5 mcg/Actuation Inhalation HFA Aer osol Inhaler RxNorm: 5055325 2 Puff(s) INH BID 04/08/2010 05/05/2010 Inactive Doxycycline 100 mg Cap RxNorm: 4885062 1 Capsule(s) PO BID 04/08/20 10 04/17/2010 Inactive Triamterene-Hydrochlorothiazide 37.5 mg-25 mg Cap RxNorm: 19 8316 1 Capsule(s) PO QAM 04/08/2010 09/04/2010 Inactive fluoxetine 40 mg Cap RxNorm: 318890 1 Capsule(s) PO QAM 04/08/2010 Inactive Morphine SR 120 mg multiphase 24 hr Cap RxNorm: 157746 1 Capsul e(s) PO 03/11/2010 04/07/2010 Inactive Endocet 10 mg-325 mg Tab RxNorm: 4117107 1-2 Tablet(s) PO Q4H IL N PAIN 03/11/2010 04/09/2010 Inactive Savella 100 mg Tab RxNorm: 546186 1 Tablet(s) PO BID 03/10/201004/09 Inactive Soma 350 mg Tab RxNorm: 988858 1 Tablet(s) PO TID prn spasm 010 04/09/2010 Inactive Savella 100 mg Tab RxNorm: 618166 1 Tablet(s) PO BID 02/03/201004/09 Inactive Aspirin 81 mg Tab RxNorm: 451425 1 Tablet(s) PO QD No Start Date Active Zyrtec 10 mg Tab RxNorm: 3208189 1 Tablet(s) PO QD No Start Date Active One Touch Ultra Test Strips RxNorm: Misc test at least t wice daily. No Start Date Active coenzyme Q10 200 mg capsule RxNorm: 489020 1 Capsule(s) PO QD No Star t Date Active One Touch Ultra Test Strips RxNorm: InVt BID Zainab t blood sugar at least twice daily. No Start Date 11/10/2010 Inactive Gabapentin 800 mg Tab RxNorm: 565450 1 Tablet(s) PO QD No Start Date 05/05/2010 Inactive Abilify 5 mg tablet RxNorm: 736258 1 Tablet(s) PO QD No Start Date Inactive Chantix 1 mg Tab RxNorm: 917618 1 Tablet(s) PO BID No Start Date 10/22 Inactive Ozempic 0.25 mg or 0.5 mg (2 mg/1.5 mL) subcutaneous p en injector RxNorm: 8804569 .25 Milligram(s) SQ QW No Start Date 07/04/2019 Inactive lancets 28 gauge RxNorm: Miscellaneous As needed for blo od glucose sticks No Start Date 08/23/2013 Inactive potassium chloride ER 20 mEq tablet,extended release RxNorm: 219201 2 Tablet(s) PO QD No Start Date 09/26/2018 Inactive Ventolin HFA 90 mcg/actuation Aerosol Inhaler RxNorm: 399823 2 Puff(s) INH Q4H prn No Start Date 01/17/2012 Inactive potassium chloride ER 20 mEq tablet,extended release RxNorm: 633928 2 Tablet(s) PO QD No Start Date 10/19/2018 Inactive Januvia 100 mg tablet RxNorm: 406674 1 Tablet(s) PO QD No Start Date 09/10/2015 Inactive Medrol (Aníbal) 4 mg Tabs in a Dose Pack RxNorm: 970280 Tablet(s) PO N o Start Date 08/09/2011 Inactive as directed Zithromax Z-Aníbal 250 mg Tab RxNorm: 681335 Tablet(s) PO No Start Date 01/25/2012 Inactive as directed vitamin B6-vitamin E-magnesium tablet RxNorm: 1 Tablet(s ) PO QHS with INH No Start Date 03/30/2018 Inactive prednisone 20 mg Tab RxNorm: 662663 1 Tablet(s) PO TID for 1wk then 1 po BID for 1wk No Start Date 01/25/2012 Inactive furosemide 40 mg tablet RxNorm: 922292 1 Tablet(s) PO QAM No Start Date 10/09/2018 Inactive Vitamin D3 1000 units Capsule RxNorm: 1 Capsule(s) PO TID No S tart Date 03/19/2015 Inactive Zofran 4 mg Tab RxNorm: 046817 1 Tablet(s) PO Q4H prn nausea No Sta rt Date 04/13/2010 Inactive Premarin 0.625 mg/g Vaginal Cream RxNorm: 665713 1 Gram (s) VAG QHS 3 times a week No Start Date 09/22/2017 Inactive oxycodone 10 mg tablet RxNorm: 1033428 1-2 Tablet(s) PO QID as n eeded for pain No Start Date 11/04/2015 Inactive Nicoderm CQ 21 mg/24 hr daily Patch RxNorm: 652140 1 Applicatio n TD QD No Start Date 08/05/2015 Inactive Topamax 50 mg tablet RxNorm: 701803 1/2 Tablet(s) PO QH S for 1wk then 1 po q HS for 1wk then 2 po q HS No Start Date 06/27/2012 Inactive Chantix Starting Month Aníbal 0.5 mg (11)-1 mg (3x14) Tab s in a Dose Pack RxNorm: 350525 Tablet(s) PO as directed No Start Date 03/01/2011 Inactive Trulicity 0.75 mg/0.5 mL subcutaneous pen injector RxNorm: 1 879242 Milliliter(s) SQ No Start Date 07/04/2019 Inactive Medrol (Aníbal) 4 mg Tabs in a Dose Pack RxNorm: 590344 Tablet(s) PO N o Start Date 01/25/2012 Inactive as directed Duragesic 100 mcg/hr Transderm Patch RxNorm: 018953 2 A pplication TD Q48H for pain No Start Date 09/05/2013 Inactive Premarin 0.9 mg Tab RxNorm: 359648 1 Tablet(s) PO QD No Start Date Inactive Zithromax Z-Aníbal 250 mg Tab RxNorm: 114784 Tablet(s) PO as direc chinmay No Start Date 01/25/2012 Inactive ondansetron 8 mg disintegrating tablet RxNorm: 136735 1 Tablet(s) PO Q6H as needed No Start Date 10/10/2018 Inactive oxycodone 15 mg tablet RxNorm: 8052717 1 Tablet(s) PO QID as nee ded for pain No Start Date 03/05/2019 Inactive ProAir HFA 90 mcg/Actuation Aerosol Inhaler RxNorm: 293018 2 Puff(s) INH Q4H prn for wheezing or shortness of breath No Start Date 12/21/2011 Inactive pravastatin 40 mg tablet RxNorm: 549067 1/2 Tablet(s) PO QOD No Sta rt Date 04/09/2015 Inactive ipratropium-albuterol 0.5 mg-3 mg(2.5 mg base)/3 mL ne bulization soln RxNorm: 0865406 1 Unit Dose INH Q4H as needed No Start Date 09/09/2016 Inactive furosemide 40 mg tablet RxNorm: 990364 1 Tablet(s) PO QAM as ne eded No Start Date 09/24/2019 Inactive Vitamin D2 oral RxNorm: 4018 oral No Start Date 03/18/2015 Inacti ve pravastatin 40 mg tablet RxNorm: 875828 1/2 Tablet(s) PO QD No Star t Date 04/09/2015 Inactive ondansetron HCl 4 mg tablet RxNorm: 110418 1 Tablet(s) PO Q4H as needed for nausea and vomiting No Start Date 04/07/2016 Inactive furosemide 40 mg tablet RxNorm: 442465 2 Tablet(s) PO QAM No Start Date 09/26/2018 Inactive gabapentin 800 mg tablet RxNorm: 733677 1/2 Tablet(s) PO BID No Sta rt Date 06/21/2017 Inactive gabapentin 800 mg tablet RxNorm: 168550 1/2 Tablet(s) PO BID No Sta rt Date 07/05/2017 Inactive ProAir HFA 90 mcg/Actuation Aerosol Inhaler RxNorm: 427158 2 Puff(s) INH Q4H prn shortness of breath No Start Date 05/05/2010 Inactive scopolamine 1 mg over 3 days transdermal patch RxNorm: 71076 2 1 Application TD behind ear. Take off after three days No Start Date 10/10/2018 Inactive Metformin 500 mg Tab RxNorm: 810280 1 Tablet(s) PO QD No Start Date 0 05/05/2010 Inactive MS Contin 200 mg Tab RxNorm: 665700 1 Tablet(s) PO BID No Start Date 08/20/2011 Inactive Belladonna-Phenobarbital 48 mg tablet,extended release RxNor m: 2 Tablet(s) PO TID No Start Date 06/04/2016 Inactive Synthroid 112 mcg Tab RxNorm: 571310 1 Tablet(s) PO QD No Start Date 05/05/2010 Inactive Zegerid 40 mg-1.1 gram Cap RxNorm: 955017 1 Capsule(s) PO QD No Sta rt Date 01/25/2012 Inactive Premarin 0.625 mg/g Vaginal Cream RxNorm: 828809 VAG In sert 1gm vaginally at bedtime 3 times weekly No Start Date 01/17/2011 Inactive potassium chloride ER 20 mEq tablet,extended release RxNorm: 612477 1 Tablet(s) PO QD No Start Date 04/24/2019 Inactive methocarbamol 750 mg tablet RxNorm: 281054 2 Tablet(s) PO TID as needed for muscle spasm No Start Date 07/08/2014 Inactive Biaxin XL Aníbal 500 mg 24 hr Tab RxNorm: 365932 Tablet(s) PO as d irected No Start Date 04/24/2013 Inactive Vitamin D3 1,000 unit tablet RxNorm: 035218 3 Tablet(s) PO QD No St art Date 06/01/2017 Inactive Morphine SR 120 mg multiphase 24 hr Cap RxNorm: 941206 1 Capsul e(s) PO BID No Start Date 04/09/2010 Inactive Silvadene 1 % topical cream RxNorm: 044570 1 Application TOP BI D to burn area No Start Date 01/31/2017 Inactive Prednisone 20 mg Tab RxNorm: 736357 1 Tablet(s) PO TID for 3days then BID for 4days No Start Date 01/25/2012 Inactive gabapentin 600 mg tablet RxNorm: 719196 1 Tablet(s) PO BID No Start Date 01/21/2015 Inactive topiramate 50 mg tablet RxNorm: 906058 1 Tablet(s) PO QHS No Start Date 03/30/2018 Inactive Januvia 100 mg tablet RxNorm: 489690 1/2 Tablet(s) PO QD No Start D ate 12/25/2015 Inactive Diazepam 10 mg Tab RxNorm: 031757 1 Tablet(s) PO BID and PRN No Sta rt Date 06/08/2010 Inactive Medication Administered No Medication Administered data Immunizations Vaccine Codes Date Status Influenza CVX: 141 09/28/2012 Pneumovax Unknown 09/28/2012 Influenza (Adult) CVX: 141 09/02/2010 Results No Results data Procedures Procedure Codes Date THER/PROPH/DIAG INJ SC/IM CPT-4: 94266 07/10/2019 METHYLPREDNISOLONE INJECTION CPT-4: J2930 07/10/2019 URINALYSIS NONAUTO W/O SCOPE CPT-4: 79626 09/06/2018 URINE CULTURE/ COLONY COUNT CPT-4: 90650 09/06/2018 DRAIN/INJECT JOINT/BURSA CPT-4: 36093 04/29/2017 TRIAMCINOLONE ACET INJ NOS CPT-4: J3301 04/29/2017 DEXAMETHASONE SODIUM PHOS CPT-4: J1100 04/29/2017 INFLUENZA ASSAY W/OPTIC CPT-4: 30617 12/01/2016 RESPIRATORY CULTURE & STAIN CPT-4: 56747 07/09/2016 TB INTRADERMAL TEST CPT-4: 30302 04/21/2016 DRAIN/INJECT JOINT/BURSA CPT-4: 30862 11/07/2013 METHYLPREDNISOLONE 40 MG INJ CPT-4: J1030 11/07/2013 TRIAMCINOLONE ACET INJ NOS CPT-4: J3301 11/07/2013 DRAIN/INJECT JOINT/BURSA CPT-4: 59977 08/08/2013 METHYLPREDNISOLONE 40 MG INJ CPT-4: J1030 08/08/2013 TRIAMCINOLONE ACET INJ NOS CPT-4: J3301 08/08/2013 FLU VACCINE 3 YRS & > IM UP 64 CPT-4: 75359 2 PNEUMOCOCCAL VACC 23 ADITYA IM CPT-4: 14425 09/28/2012 IMMUNIZATION ADMIN CPT-4: 20478 09/28/2012 IMMUNIZATION ADMIN EACH ADD CPT-4: 84729 09/28/2012 FLU VACCINE 3 YRS & > IM UP 64 CPT-4: 58005 0 IMMUNIZATION ADMIN CPT-4: 50169 09/02/2010 METHYLPREDNISOLONE INJECTION CPT-4: J2930 05/07/2010 THER/PROPH/DIAG INJ SC/IM CPT-4: 20184 05/07/2010 Vital Signs Date Vital 11/29/2019 Blood Pressure 1: 126/70 Code: 8480-6 [...] 1: 122/78 Code: 8480-6 BMI: 29.5 Code: 64763-1 Heart Rate 1: 76 bpm Height: 5'4" Respiratory Rate: 20 bpm SpO2: 96% Tempera ture: 37.0 (C) / 98.6 (F) Weight: 172 lbs 01/25/2019 Blood Pressure 1: 132/80 Code: 8480-6 BMI: 29.7 Code: 74097-8 Heart Rate 1: 84 bpm Height: 5'4" Respiratory Rate: 22 bpm SpO2: 98% Tempera ture: 36.9 (C) / 98.4 (F) Weight: 173 lbs 01/03/2019 Blood Pressure 1: 116/70 Code: 8480-6 BMI: 29.5 Code: 44087-2 Heart Rate 1: 92 bpm Height: 5'4" Respiratory Rate: 24 bpm SpO2: 98% Tempera ture: 37.2 (C) / 98.9 (F) Weight: 172 lbs 11/21/2018 Blood Pressure 1: 146/82 Code: 8480-6 BMI: 28.2 Code: 36359-5 Heart Rate 1: 88 bpm Height: 5'4" Respiratory Rate: 22 bpm SpO2: 97% Tempera ture: 36.9 (C) / 98.4 (F) Weight: 164 lbs 10/27/2018 Blood Pressure 1: 122/70 Code: 8480-6 BMI: 27.6 Code: 79853-9 Heart Rate 1: 88 bpm Height: 5'4" Respiratory Rate: 20 bpm SpO2: 96% Tempera ture: 36.8 (C) / 98.3 (F) Weight: 161 lbs 10/18/2018 Blood Pressure 1: 126/70 Code: 8480-6 BMI: 28.3 Code: 71406-3 Heart Rate 1: 76 bpm Height: 5'4" Respiratory Rate: 20 bpm SpO2: 95% Tempera ture: 37.0 (C) / 98.6 (F) Weight: 165 lbs 09/27/2018 Blood Pressure 1: 124/78 Code: 8480-6 BMI: 27.1 Code: 66448-4 Heart Rate 1: 88 bpm Height: 5'4" Respiratory Rate: 20 bpm SpO2: 98% Tempera ture: 36.4 (C) / 97.6 (F) Weight: 158 lbs 09/14/2018 Blood Pressure 1: 140/72 Code: 8480-6 BMI: 26.1 Code: 79262-4 Heart Rate 1: 100 bpm Height: 5'4" Respiratory Rate: 20 bpm SpO2: 97% Tempera ture: 36.9 (C) / 98.4 (F) Weight: 152 lbs 09/06/2018 Blood Pressure 1: 156/82 Code: 8480-6 BMI: 26.3 Code: 84402-1 Heart Rate 1: 100 bpm Height: 5'4" Respiratory Rate: 28 bpm SpO2: 95% Tempera ture: 37.2 (C) / 98.9 (F) Weight: 153 lbs 08/16/2018 Blood Pressure 1: 130/78 Code: 8480-6 Heart Rate 1: 87 bpm Respiratory Rate: 24 bpm SpO2: 94% Temperature: 36.9 (C) / 98.4 (F) We ight: 147 lbs 8 oz 07/07/2018 Blood Pressure 1: 116/78 Code: 8480-6 BMI: 22.7 Code: 75813-4 Heart Rate 1: 88 bpm Height: 5'4" Respiratory Rate: 22 bpm SpO2: 98% Tempera ture: 36.5 (C) / 97.7 (F) Weight: 132 lbs 05/31/2018 Blood Pressure 1: 128/78 Code: 8480-6 BMI: 22.3 Code: 95295-2 Heart Rate 1: 92 bpm Height: 5'4" Respiratory Rate: 26 bpm SpO2: 94% Tempera ture: 36.7 (C) / 98.1 (F) Weight: 130 lbs 03/31/2018 Blood Pressure 1: 136/78 Code: 8480-6 BMI: 21.5 Code: 32012-7 Heart Rate 1: 76 bpm Height: 5'4" Respiratory Rate: 24 bpm SpO2: 95% Tempera ture: 36.8 (C) / 98.3 (F) Weight: 125 lbs 01/26/2018 Blood Pressure 1: 142/64 Code: 8480-6 BMI: 20.6 Code: 94321-5 Heart Rate 1: 90 bpm Height: 5'4" Respiratory Rate: 24 bpm SpO2: 92% Tempera ture: 36.3 (C) / 97.3 (F) Weight: 120 lbs 10/26/2017 Blood Pressure 1: 124/70 Code: 8480-6 BMI: 20.3 Code: 71511-5 Heart Rate 1: 76 bpm Height: 5'4" Respiratory Rate: 22 bpm SpO2: 94% Tempera ture: 36.7 (C) / 98.1 (F) Weight: 118 lbs 09/23/2017 Blood Pressure 1: 106/70 Code: 8480-6 BMI: 19.2 Code: 46977-6 Heart Rate 1: 76 bpm Height: 5'4" Respiratory Rate: 20 bpm SpO2: 94% Tempera ture: 36.8 (C) / 98.3 (F) Weight: 112 lbs 08/12/2017 Blood Pressure 1: 116/68 Code: 8480-6 BMI: 20.1 Code: 93376-0 Heart Rate 1: 80 bpm Height: 5'4" Respiratory Rate: 22 bpm SpO2: 95% Tempera ture: 36.8 (C) / 98.2 (F) Weight: 117 lbs 07/06/2017 Blood Pressure 1: 136/78 Code: 8480-6 BMI: 20.6 Code: 96837-7 Heart Rate 1: 76 bpm Height: 5'4" Respiratory Rate: 24 bpm SpO2: 96% Tempera ture: 36.8 (C) / 98.2 (F) Weight: 120 lbs 06/02/2017 Blood Pressure 1: 112/70 Code: 8480-6 Heart Rate 1: 92 bpm Height: 5'4" Respiratory Rate: 24 bpm SpO2: 95% Temperature: 37.0 (C) / 98.6 (F) Weight: 04/29/2017 Blood Pressure 1: 94/52 Code: 8480-6 BMI: 19.6 C ode: 27935-0 Heart Rate 1: 84 bpm Height: 5'4" [...] 92/58 Code: 8480-6 BMI: 19.2 C ode: 01341-5 Heart Rate 1: 84 bpm Height: 5'4" Respiratory Rate: 26 bpm SpO2: 95% Tempera ture: 36.7 (C) / 98.0 (F) Weight: 112 lbs 12/01/2016 Blood Pressure 1: 114/70 Code: 8480-6 BMI: 19.2 Code: 59620-2 Heart Rate 1: 96 bpm Height: 5'4" Respiratory Rate: 28 bpm SpO2: 93% Tempera ture: 38.3 (C) / 101.0 (F) Weight: 112 lbs 10/27/2016 Blood Pressure 1: 126/66 Code: 8480-6 BMI: 19.6 Code: 85391-9 Heart Rate 1: 92 bpm Height: 5'4" Respiratory Rate: 28 bpm SpO2: 90% Tempera ture: 36.8 (C) / 98.3 (F) Weight: 114 lbs 09/09/2016 Blood Pressure 1: 126/74 Code: 8480-6 Heart Rate 1: 104 bpm Height: 5'4" Respiratory Rate: 32 bpm SpO2: 88% Temperature: 37 .2 (C) / 99.0 (F) 08/26/2016 Blood Pressure 1: 134/82 Code: 8480-6 BMI: 22.0 Code: 61841-1 Heart Rate 1: 84 bpm Height: 5'4" Respiratory Rate: 24 bpm SpO2: 94% Tempera ture: 36.8 (C) / 98.3 (F) Weight: 128 lbs 05/21/2016 Blood Pressure 1: 142/80 Code: 8480-6 BMI: 21.6 Code: 48762-1 Heart Rate 1: 104 bpm Height: 5'4" Respiratory Rate: 22 bpm SpO2: 93% Tempera ture: 36.0 (C) / 96.8 (F) Weight: 126 lbs 03/25/2016 Blood Pressure 1: 126/62 Code: 8480-6 Heart Rate 1: 88 bpm Respiratory Rate: 20 bpm SpO2: 92% Temperature: 36.8 (C) / 98.3 (F) We ight: 130 lbs 01/23/2016 Blood Pressure 1: 146/82 Code: 8480-6 BMI: 24.1 Code: 20655-5 Heart Rate 1: 92 bpm Height: 5'3" Respiratory Rate: 22 bpm Temperature: 37 .1 (C) / 98.8 (F) Weight: 136 lbs 12/26/2015 Blood Pressure 1: 142/78 Code: 8480-6 BMI: 24.6 Code: 67305-8 Heart Rate 1: 78 bpm Height: 5'3" Respiratory Rate: 20 bpm Temperature: 36 .7 (C) / 98.1 (F) Weight: 139 lbs 12/03/2015 Blood Pressure 1: 126/60 Code: 8480-6 BMI: 24.6 Code: 03997-9 Heart Rate 1: 100 bpm Height: 5'3" Respiratory Rate: 28 bpm Temperature: 37 .6 (C) / 99.6 (F) Weight: 139 lbs 09/10/2015 Blood Pressure 1: 124/64 Code: 8480-6 BMI: 23.7 Code: 89801-4 Heart Rate 1: 88 bpm Height: 5'3" Respiratory Rate: 24 bpm SpO2: 95% Tempera ture: 36.4 (C) / 97.6 (F) Weight: 134 lbs 08/06/2015 Blood Pressure 1: 114/76 Code: 8480-6 BMI: 23.2 Code: 01660-6 Heart Rate 1: 88 bpm Height: 5'3" Respiratory Rate: 22 bpm Temperature: 36 .6 (C) / 97.9 (F) Weight: 131 lbs 07/18/2015 Blood Pressure 1: 144/78 Code: 8480-6 BMI: 23.7 Code: 46366-2 Heart Rate 1: 84 bpm Height: 5'3" Respiratory Rate: 20 bpm Temperature: 37 .2 (C) / 99.0 (F) Weight: 134 lbs 04/10/2015 Blood Pressure 1: 110/64 Code: 8480-6 Heart Rate 1: 80 bpm Height: Respiratory Rate: 20 bpm Temperature: 37.1 (C) / 98.8 (F) Weight: 03/05/2015 Blood Pressure 1: 136/80 Code: 8480-6 BMI: 23.9 Code: 37068-4 Heart Rate 1: 76 bpm Height: 5'3" Respiratory Rate: 24 bpm Temperature: 37 .0 (C) / 98.6 (F) Weight: 135 lbs 01/30/2015 Blood Pressure 1: 142/80 Code: 8480-6 BMI: 23.0 Code: 40427-0 Heart Rate 1: 96 bpm Height: 5'3" Respiratory Rate: 22 bpm Temperature: 36 .2 (C) / 97.2 (F) Weight: 130 lbs 01/02/2015 Blood Pressure 1: 124/70 Code: 8480-6 BMI: 23.4 Code: 80827-6 Heart Rate 1: 84 bpm Height: 5'3" Respiratory Rate: 24 bpm SpO2: 95% Tempera ture: 36.9 (C) / 98.5 (F) Weight: 132 lbs 10/03/2014 Blood Pressure 1: 106/68 Code: 8480-6 BMI: 22.5 Code: 48801-9 Heart Rate 1: 88 bpm Height: 5'3" Respiratory Rate: 24 bpm Temperature: 37 .0 (C) / 98.6 (F) Weight: 127 lbs 08/27/2014 Blood Pressure 1: 124/68 Code: 8480-6 BMI: 21.1 Code: 93812-1 Heart Rate 1: 88 bpm Height: 5'3" Respiratory Rate: 28 bpm Temperature: 36 .9 (C) / 98.5 (F) Weight: 119 lbs 07/03/2014 Blood Pressure 1: 114/70 Code: 8480-6 Heart Rate 1: 84 bpm Respiratory Rate: 28 bpm Temperature: 36.8 (C) / 98.3 (F) Weight: 121 lbs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 Patient Medication Summary Completed 07/26/2013 Visit Plan: Doxycycline and Prednisone S moking Cessation Notify if worsening May need shoulder injection 06/28/2013 Appointment: Vika Renteria WPtel: [address] [place] [address] FOLLOW UP 06/28/2013 Patient Education: Patient Medication Summary Completed 06/28/2013 Visit Plan: Prednisone for shoulder Cont inue duoderm/wound care May need PT for shoulder 05/31/2013 Appointment: Vika Renteriatel: [address] [place] [address] 05/30 FOLLOW UP 05/31/2013 Patient Education: Patient Medication Summary Completed 05/31/2013 Visit Plan: Levaquin and start woundcare 05/03/2013 Appointment: Vika Renteria WPtel: [address] [place] [address] ACUTE ILLNESS 05/03/2013 Patient Education: Patient Medication Summary Completed 05/03/2013 Visit Plan: PT for strengthening No ciga rettes Continue current meds 04/25/2013 Appointment: Vika Renteria WPtel: [address] [place], [place] [phone] 04/24 [facility] Follow Up 04/25/2013 Patient Education: Patient Medication Summary Completed 04/25/2013 Appointment: Vika Renteria WPtel: [address] [place], [place] [phone] FOLLOW UP 04/13/2013 Visit Plan: Check CT head, lungs, abdome n/pelvis Continue duragesic patch with oxycodone for breakthrough pain Fwup pending CT results 03/08/2013 Appointment: Vika Renteria WPtel: [address] [place], [place] [phone] patient daughter called in to reschedule due to med issues...02/28 patient daughter rescheduled due to weather 03/01 03/07 left message FOLLOW UP 03/08/2013 Patient Education: Patient Medication Summary Completed 03/08/2013 Visit Plan: Change MS Contin to Duragesi c Patch 100mcg q48hrs for pain with hydrocodone 10/325mg 1-2 po QID prn breakthrough pain 02/07/2013 Appointment: Vika Renteria WPtel: [address] [place], [place] [phone] 02/06 left message FOLLOW UP 02/07/2013 Patient Education: Patient Medication Summary Completed 02/07/2013 Visit Plan: Discussed that some [employer] products are petroleum free If continues with weight loss will proceed with CT scan of chest--pt refuses at this time Smoking Cessation 01/10/2013 Appointment: Vika Renteria WPtel: [address] [place], [place] [phone] 01/09 FOLLOW UP 01/10/2013 Patient Education: Patient Medication Summary Completed 01/10/2013 Appointment: Vika Renteria WPtel: [address] [place], [place] [phone] FOLLOW UP 12/27/2012 Appointment: Vika Renteria WPtel: [address] [place] [phone] 08/29/12: Patient called and rescheduled 1:30pm appt for 08/30/12 - LB..09/28 no answer FOLLOW UP 09/28/2012 Patient Education: Patient Medication Summary Completed 09/28/2012 Visit Plan: Increase Topamax to 100mg q HS Pt has stopped smoking cold turkey Zithromax for 1wk 06/28/2012 Appointment: Vika Renteriatel: [address] [place] [address] voicemail FOLLOW UP 06/28/2012 Patient Education: Patient Medication Summary Completed 06/28/2012 Visit Plan: Topamax from Migraine preven tion Smoking cessation 05/03/2012 Appointment: Vika Renteria WPtel: [address] [place], [place] [id number] 04/26/12: appt rescheduled from 04/26/12 by daughter [...] smoking cessation 03/01/2012 Appointment: Vika Renteria WPtel: [address] [place] [address] FOLLOW UP 03/01/2012 Patient Education: Patient Medication Summary Completed 03/01/2012 Visit Plan: Overnight pulse ox Smoking C essation Add Daliresp 500mg daily Hold Metformin 01/26/2012 Appointment: Vika Renteriatel: [address] [place], [place] [phone] [place] FOLLOW UP 01/26/2012 Patient Education: Patient Medication Summary Completed 01/26/2012 Visit Plan: Discussed methotrexate trial , but do to chronic bronchitis pt wants to hold Smoking cessation Check CMP, CBC, TSH, Free T4, Lipids. ESR, ds DNA, JOVANNY Check EGD 11/03/2011 Appointment: Vika Renteriatel: [address] [place], [place] [phone] FOLLOW UP 11/03/2011 Patient Education: Patient Medication Summary Completed 11/03/2011 Appointment: Vika Renterial: [address] [place], [place] [id number] 08/10/2011 Patient Education: Patient Medication Summary Completed 08/10/2011 Visit Plan: Supportive care. Rest, Fluid s, Tylenol/Motrin prn fever or bodyaches. Notify if worsening symptoms. Medrol Dose Pack Smoking Cessation and recommend get rid of cat Add Reglan for stomach 07/15/2011 Appointment: Vika Renteria WPtel: [address] [place] [address] ACUTE ILLNESS 07/15/2011 Patient Education: Patient Medication Summary Completed 07/15/2011 Appointment: Vika Renteria WPtel: [address] [place] [address] FOLLOW UP 04/02/2011 Visit Plan: SVN with Albuterol 0.083% Q4 hrs and Q2hrs prn. Cont smoking Cessation 03/19/2011 Appointment: Vika Renteria WPtel: [address] [place] [address] ACUTE ILLNESS 03/19/2011 Patient Education: Patient Medication Summary Completed 03/19/2011 Visit Plan: Repeat Biaxin XL Cont curren t meds Repeat Chantix 01/28/2011 Appointment: Vika Renteria WPtel: [address] [place], [place] [id number] FOLLOW UP 01/28/2011 Patient Education: Patient Medication Summary Completed 01/28/2011 Patient Education: Chantix Unbranded Comp leted 01/28/2011 Appointment: Vika Renteria WPtel: [address] [place] [address] FOLLOW UP 01/14/2011 Visit Plan: Finish abx Diflucan for vagi nitis Premarin vaginal cream Smoking cessation 12/17/2010 Appointment: Vika Renteria WPtel: [address] [place], [place] [phone] [place] [address] Follow Up 12/17/2010 Patient Education: Patient Medication Summary Completed 12/17/2010 Appointment: Vika Renteriatel: [address] [place], [place] [phone] FOLLOW UP 11/06/2010 Visit Plan: Start PT Use SVNs every 4hrs Smoking Cessation Change MS Contin to 200mg q 12hrs 2010 Appointment: Vika Renteria WPtel: [address] [place], [place] [phone] FOLLOW UP 2010 Patient Education: Patient Medication Summary Completed 2010 Visit Plan: Prednisone taper for pain an d lungs 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 Increase fluoxetine to 60mg QD for acute stress reaction 10/02/2010 Appointment: Vika Renteria WPtel: [address] [place] [address] FOLLOW UP 10/02/2010 Patient Education: Patient Medication Summary Completed 10/02/2010 Visit Plan: Check CT Head, Cervical, Tho racic, and Lumbar Spine Cont current meds Bactrim for left toe 09/24/2010 Appointment: Vika Renteriatel: [address] [place], [place] [phone] CHECK UP 09/24/2010 Patient Education: Patient Medication Summary Completed 09/24/2010 Appointment: Vika Renteriatel: [address] [place], [place] [phone] FOLLOW UP 09/02/2010 Patient Education: Patient Medication Summary Completed 09/02/2010 Visit Plan: Return for 2nd epidural Obse rve right leg lesion Cont Symbicort and Spiriva 07/14/2010 Appointment: Vika Renteria WPtel: [address] [place], [place] [phone] FOLLOW UP 07/14/2010 Patient Education: Patient Medication Summary Completed 07/14/2010 Appointment: Vika Renteria WPtel: [address] [place], [place] [phone] FOLLOW UP 05/27/2010 Appointment: Vika Renteria WPtel: [address] [place] [address] FOLLOW UP 05/14/2010 Visit Plan: SVN with Albuterol 0.083% Q4 hrs and Q2hrs prn. Restart Spiriva Smoking Cessation 05/07/2010 Appointment: Vika Renteria WPtel: [address] [place], [place] [id number] FOLLOW UP 05/07/2010 Patient Education: Patient Medication Summary Completed 05/07/2010 Appointment: Vika Renteria WPtel: [address] [place] [address] ACUTE ILLNESS 04/08/2010 Patient Education: Patient Medication Summary Completed 04/08/2010 Referral: Kyle Billings WPtel: [address] [address] [place] Referral Completed Referral: Jaylan Matute WPtel: [address] [facility] [address] [id number] [place] Referral Initiated Referral: Kyle Billings WPtel: [address] [address] [place] Referral Appointment Requested Instructions Comment . [...] with ipratropium q4hrs prn in nebulizer Retry Chantix Will repeat CT scan of chest in [...] if worsening . Has made appointment with therapist--pramod bateman her this Wednesday Stop Januvia Restart Metformin [...] prn breakthrough pain . Discussed that some [employer] produc ts are petroleum free If [...]
--- OUTSIDE RECORDS SUMMARY | 2020-04-24 21:55 | XMS REPORT | CCD ---
Author Author Yana Renteria D.O. Organization 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 Role Phone Vika Renteria D.O., PP Unavailable CCM Unavailable Summary Purpose Interface Exchange Insurance Providers Payer name Policy type / Coverage type Covered alliance party ID Effective Begin Date Effective End Date [employer] [facility] [place] Medicaid [id number] 2018 U nknown Family History Family History data not found Social History Social History Element Codes Description Effective Dates Marital status Unknown 06/28/[address]: 75345069 Currently smokes tobacco 05/2013 Allergies, Adverse Reactions, [...] Start Date Stop Date Status Fill Instructions MS Contin 200 mg tablet,extended release RxNorm: 363720 1 Tablet(s) Oral two times a day 04/16/2020 05/16/2020 Active cyclobenzaprine 10 mg tablet RxNorm: 841075 TAKE ONE TA BLET BY MOUTH THREE TIMES A DAY NEEDED 04/11/2020 No Stop Date Active potassium chloride ER 20 mEq tablet,extended release RxNorm: 476281 TAKE ONE TABLET BY MOUTH DAILY 04/11/2020 No Stop Date Active ProAir HFA 90 mcg/actuation aerosol inhaler RxNorm: 393586 INHALE ONE PUFF BY MOUTH EVERY 4 HOURS FOR WHEEZING OR FOR SHORTNESS OF BREATH 04/11/2020 No Stop Date Active Daliresp 500 mcg tablet RxNorm: 6544494 TAKE ONE TABLET BY MOUTH DAILY 04/11/2020 No Stop Date Active hydroxyzine HCl 50 mg tablet RxNorm: 243651 TAKE ONE TA BLET BY MOUTH TWICE A DAY WITH MORPHINE. *REPLACES BENADRYL* 04/11/2020 No Stop Date Active fluoxetine 20 mg capsule RxNorm: 661658 1 Capsule(s) Oral QD 201905/10/2020 Active fluoxetine 20 mg capsule RxNorm: 171336 1 Capsule(s) Oral QD 201904/09/2020 Inactive levothyroxine 25 mcg tablet RxNorm: 793319 TAKE ONE TAB LET BY MOUTH EVERY MORNING 04/09/2020 No Stop Date Active metformin 500 mg tablet RxNorm: 719848 1 Tablet(s) Oral QD 04/09/20 20 07/08/2020 Active MS Contin 200 mg tablet,extended release RxNorm: 860611 1 Tablet(s) Oral two times a day 03/19/2020 04/15/2020 Inactive Relistor 150 mg tablet RxNorm: 3046479 TAKE THREE TABLETS BY BENOIT TH DAILY 03/13/2020 No Stop Date Active furosemide 40 mg tablet RxNorm: 661542 TAKE ONE TABLET BY MOUTH EVERY MORNING 03/13/2020 No Stop Date Active cyclobenzaprine 10 mg tablet RxNorm: 432733 TAKE ONE TA BLET BY MOUTH THREE TIMES A DAY NEEDED 03/13/2020 04/10/2020 Inactive prednisone 1 mg tablet RxNorm: 490655 1 Tablet(s) Oral two times a day to take with hydroxyzine 03/12/2020 No Stop Date Active hydroxyzine HCl 50 mg tablet RxNorm: 576525 1 Tablet(s) Oral two times a day to take with morphine--replaces benadryl 03/12/2020 04/10/2020 Inactive prednisolone 5 mg tablet RxNorm: 565958 1 Tablet(s) Oral two ti mes a day 02/22/2020 03/23/2020 Inactive prednisolone 5 mg tablet RxNorm: 869928 1 Tablet(s) Oral two ti mes a day 02/22/2020 02/21/2020 Inactive Symbicort 160 mcg-4.5 mcg/actuation HFA aerosol inhaler RxNo rm: 8236997 INHALE TWO PUFFS BY MOUTH TWICE A DAY 02/19/2020 No Stop Date Active Daliresp 500 mcg tablet RxNorm: 7825848 TAKE ONE TABLET BY MOUTH DAILY 02/19/2020 No Stop Date Active prednisone 20 mg tablet RxNorm: 485372 1 Tablet(s) Oral two yumi es a day 02/13/2020 02/20/2020 Inactive oxycodone 30 mg tablet RxNorm: 4809696 1 Tablet(s) Oral four times a day replaces MS Contin 02/13/2020 02/22/2020 Inactive levothyroxine 25 mcg tablet RxNorm: 937893 TAKE ONE TAB LET BY MOUTH EVERY MORNING 02/09/2020 04/08/2020 Inactive MS Contin 200 mg tablet,extended release RxNorm: 886986 1 Tablet(s) Oral two times a day 02/01/2020 03/01/2020 Inactive Premarin 0.45 mg tablet RxNorm: 173883 TAKE ONE TABLET BY MOUTH DAILY 01/31/2020 No Stop Date Active cyclobenzaprine 10 mg tablet RxNorm: 341095 TAKE ONE TA BLET BY MOUTH THREE TIMES A DAY NEEDED 01/31/2020 03/12/2020 Inactive metformin 500 mg tablet RxNorm: 044773 1 Tablet(s) Oral QD 01/31/2004/08/2020 Inactive gabapentin 300 mg capsule RxNorm: 411659 TAKE ONE CAPSULE BY [facility] TWICE A DAY 01/16/2020 No Stop Date Active potassium chloride ER 20 mEq tablet,extended release RxNorm: 756080 TAKE ONE TABLET BY MOUTH DAILY 01/08/2020 07/05/2020 Active ProAir HFA 90 mcg/actuation aerosol inhaler RxNorm: 734932 INHALE ONE PUFF BY MOUTH EVERY 4 HOURS FOR WHEEZING OR FOR SHORTNESS OF BREATH 01/04/2020 04/10/2020 Inactive metformin 500 mg tablet RxNorm: 548614 1 Tablet(s) Oral QD 01/04/2004/09/2020 Inactive MS Contin 200 mg tablet,extended release RxNorm: 592499 1 Tablet(s) Oral two times a day 01/02/2020 01/31/2020 Inactive Pulmicort 1 mg/2 mL suspension for nebulization RxNorm: 6168 19 USE ONE VIAL VIA NEBULIZER BY MOUTH TWICE A DAY 12/21/2019 No Stop Date Active furosemide 40 mg tablet RxNorm: 383795 TAKE ONE TABLET BY MOUTH EVERY MORNING NEEDED 12/20/2019 03/12/2020 Inactive levothyroxine 25 mcg tablet RxNorm: 613953 TAKE ONE TAB LET BY MOUTH EVERY MORNING 12/20/2019 02/08/2020 Inactive MS Contin 200 mg tablet,extended release RxNorm: 662867 1 Tablet(s) Oral two times a day 12/05/2019 01/01/2020 Inactive Medrol (Aníbal) 4 mg tablets in a dose pack RxNorm: 163086 6 Tablet(s) Oral QD --then as directed 11/30/2019 12/05/2019 Inactive MS Contin 200 mg tablet,extended release RxNorm: 677165 1 Tablet(s) Oral two times a day 11/29/2019 12/04/2019 Inactive cyclobenzaprine 10 mg tablet RxNorm: 873995 TAKE ONE TA BLET BY MOUTH THREE TIMES A DAY NEEDED 11/21/2019 01/30/2020 Inactive MS Contin 200 mg tablet,extended release RxNorm: 998045 1 Tablet(s) Oral two times a day replaces 100mg dose 11/03/2019 11/02/2019 Inactive MS Contin 200 mg tablet,extended release RxNorm: 311756 1 Tablet(s) Oral two times a day replaces 100mg dose 11/03/2019 11/29/2019 Inactive ferrous sulfate 325 mg (65 mg iron) tablet RxNorm: 839091 1 Tab let(s) Oral QD 10/30/2019 No Stop Date Active MS Contin 100 mg tablet,extended release RxNorm: 897117 1 Table t(s) Oral QD 10/30/2019 10/29/2019 Inactive MS Contin 100 mg tablet,extended release RxNorm: 419718 1 Table t(s) Oral QD 10/30/2019 11/02/2019 Inactive pantoprazole 40 mg tablet,delayed release RxNorm: 713371 1 Tabl et(s) Oral QD 10/25/2019 No Stop Date Active Minipress 2 mg capsule RxNorm: 616362 1 Capsule(s) Oral QAM and 3 at bedtime 10/25/2019 No Stop Date Active Lancets, Super Thin RxNorm: 1 Unit Dose Miscellaneous QD 9 11/27/2020 Active Relistor 150 mg tablet RxNorm: 5283283 TAKE THREE TABLETS BY BENOIT TH DAILY 10/25/2019 03/12/2020 Inactive oxycodone 15 mg tablet RxNorm: 9027709 1 Tablet(s) Oral four times a day as needed for pain 10/25/2019 11/28/2019 Inactive metformin 500 mg tablet RxNorm: 132525 1 Tablet(s) Oral QD 10/25/20 19 01/03/2020 Inactive levothyroxine 25 mcg tablet RxNorm: 701151 1 Tablet(s) Oral QAM 02/201912/19/2019 Inactive levothyroxine 25 mcg tablet RxNorm: 139980 1 Tablet(s) Oral QAM 02/201910/24/2019 Inactive MS Contin 100 mg tablet,extended release RxNorm: 892808 1 Tablet(s) Oral two times a day replaces fentanyl 10/25/2019 10/25/2019 Inactive Cymbalta 60 mg capsule,delayed release RxNorm: 795113 1 Capsule (s) Oral QAM 10/25/2019 04/09/2020 Inactive Cymbalta 30 mg capsule,delayed release RxNorm: 440162 1 Capsule (s) Oral QAM 10/25/2019 04/09/2020 Inactive Premarin 0.45 mg tablet RxNorm: 541497 TAKE ONE TABLET BY MOUTH DAILY 10/24/2019 01/30/2020 Inactive Duragesic 100 mcg/hr transdermal patch RxNorm: 851018 2 Application TD Q48H for pain 10/18/2019 10/24/2019 Inactive gabapentin 300 mg capsule RxNorm: 513577 TAKE ONE CAPSULE BY MO UTH TWICE A DAY 10/16/2019 01/15/2020 Inactive cyclobenzaprine 10 mg tablet RxNorm: 453877 TAKE ONE TA BLET BY MOUTH THREE TIMES A DAY NEEDED 09/27/2019 11/20/2019 Inactive Relistor 150 mg tablet RxNorm: 4935247 TAKE THREE TABLETS BY BENOIT TH DAILY 09/25/2019 10/24/2019 Inactive ProAir HFA 90 mcg/actuation aerosol inhaler RxNorm: 657865 INHALE ONE PUFF BY MOUTH EVERY 4 HOURS FOR WHEEZING OR FOR SHORTNESS OF BREATH 09/25/2019 01/03/2020 Inactive furosemide 40 mg tablet RxNorm: 747704 1 Tablet(s) Oral QAM as needed 09/25/2019 09/25/2019 Inactive oxycodone 15 mg tablet RxNorm: 8481602 1 Tablet(s) PO QID as nee ded for pain 09/21/2019 10/24/2019 Inactive Duragesic 100 mcg/hr transdermal patch RxNorm: 036454 2 Application TD Q48H for pain 09/19/2019 10/17/2019 Inactive Daliresp 500 mcg tablet RxNorm: 3276223 1 Tablet(s) Oral QD 019 02/18/2020 Inactive Relistor 150 mg tablet RxNorm: 0580861 TAKE THREE TABLETS BY BENOIT TH DAILY 07/25/2019 07/30/2019 Inactive cyclobenzaprine 10 mg tablet RxNorm: 647968 TAKE ONE TA BLET BY MOUTH THREE TIMES A DAY NEEDED 07/25/2019 09/22/2019 Inactive potassium chloride ER 20 mEq tablet,extended release RxNorm: 423321 TAKE ONE TABLET BY MOUTH DAILY 07/25/2019 01/07/2020 Inactive fluoxetine 40 mg capsule RxNorm: 138377 TAKE ONE CAPSULE BY BENOIT TH EVERY MORNING 07/11/2019 10/24/2019 Inactive Medrol (Aníbal) 4 mg tablets in a dose pack RxNorm: 965505 6 Tablet(s) PO QD --then as directed 07/10/2019 07/15/2019 Inactive omeprazole 40 mg capsule,delayed release RxNorm: 467128 1 Capsule(s) PO QD for stomach TAKE ONE CAPSULE BY MOUTH DAILY 07/10/2019 10/24/2019 Inactive Augmentin 875 mg-125 mg tablet RxNorm: 373285 1 Tablet(s) PO BID 07/16/2019 Inactive Trulicity 0.75 mg/0.5 mL subcutaneous pen injector RxNorm: 1 274525 0.75 Milliliter(s) SQ weekly 07/05/2019 10/24/2019 Inactive Compazine 10 mg tablet RxNorm: 525290 TAKE ONE TABLET B Y MOUTH FOUR TIMES A DAY NEEDED FOR NAUSEA 06/20/2019 07/19/2019 Inactive ProAir HFA 90 mcg/actuation aerosol inhaler RxNorm: 921155 INHALE ONE PUFF BY MOUTH EVERY 4 HOURS FOR WHEEZING OR FOR SHORTNESS OF BREATH 06/20/2019 06/23/2019 Inactive Daliresp 500 mcg tablet RxNorm: 3218677 TAKE ONE TABLET BY MOUTH DAILY 06/12/2019 09/10/2019 Inactive jqvckdeq-coqpeiizt-irlsstqaa 3.5 mg/mL-10,000 unit/mL- 1 % ear solution RxNorm: 318816 4 Drop(s) otic (ear) TID to left ear 06/05/2019 10/24/2019 Inac tive furosemide 40 mg tablet RxNorm: 159348 TAKE ONE TABLET BY MOUTH EVERY MORNING 05/26/2019 07/09/2019 Inactive Duragesic 100 mcg/hr transdermal patch RxNorm: 712837 2 Application TD Q48H for pain 05/16/2019 06/14/2019 Inactive oxycodone 15 mg tablet RxNorm: 9836068 1 Tablet(s) PO QID as nee ded for pain 05/10/2019 09/20/2019 Inactive doxycycline hyclate 100 mg capsule RxNorm: 2857825 1 Capsule(s) PO BID 05/03/2019 05/12/2019 Inactive prednisone 20 mg tablet RxNorm: 992761 1 Tablet(s) PO T ID for 3 days then 1 po BID for 3 days then one daily for 3 days 05/03/2019 07/11/2019 Inactiv e Ozempic 0.25 mg or 0.5 mg (2 mg/1.5 mL) subcutaneous p en injector RxNorm: 3861076 0.5 Milligram(s) SQ QW 05/03/2019 07/09/2019 Inactive fluconazole 100 mg tablet RxNorm: 088024 1 Tablet(s) PO QD 05/03/20 19 05/07/2019 Inactive Premarin 0.45 mg tablet RxNorm: 265137 TAKE ONE TABLET BY MOUTH DAILY 05/03/2019 10/23/2019 Inactive potassium chloride ER 20 mEq tablet,extended release RxNorm: 615127 1 Tablet(s) PO QD 04/27/2019 07/25/2019 Inactive potassium chloride ER 20 mEq tablet,extended release RxNorm: 062403 1 Tablet(s) PO QD 04/25/2019 04/26/2019 Inactive Compazine 10 mg tablet RxNorm: 881399 1 Tablet(s) PO QID as nee ded for nausea 04/25/2019 05/04/2019 Inactive ProAir HFA 90 mcg/actuation aerosol inhaler RxNorm: 927428 INHALE ONE PUFF BY MOUTH EVERY 4 HOURS FOR WHEEZING OR FOR SHORTNESS OF BREATH 04/12/2019 06/10/2019 Inactive Medrol (Aníbal) 4 mg tablets in a dose pack RxNorm: 643800 6 Tablet(s) PO QD --then as directed 04/11/2019 04/16/2019 Inactive Symbicort 160 mcg-4.5 mcg/actuation HFA aerosol inhaler RxNo rm: 5835411 2 Puff(s) INH BID 04/10/2019 10/06/2019 Inactive levothyroxine 50 mcg tablet RxNorm: 003560 1 Tablet(s) PO QD 201810/24/2019 Inactive gabapentin 300 mg capsule RxNorm: 337060 1 Capsule(s) PO BID 201810/02/2019 Inactive Symbicort 160 mcg-4.5 mcg/actuation HFA aerosol inhaler RxNo rm: 2567101 2 Puff(s) INH BID 04/06/2019 04/09/2019 Inactive oxycodone 15 mg tablet RxNorm: 8480213 1 Tablet(s) PO QID as nee ded for pain 04/05/2019 05/09/2019 Inactive levothyroxine 50 mcg tablet RxNorm: 475539 1 Tablet(s) PO QD 201804/09/2019 Inactive furosemide 40 mg tablet RxNorm: 793584 TAKE ONE TABLET BY MOUTH EVERY MORNING 03/21/2019 04/19/2019 Inactive levothyroxine 50 mcg tablet RxNorm: 701881 TAKE ONE TABLET BY M OUTH DAILY 03/21/2019 03/27/2019 Inactive Duragesic 100 mcg/hr transdermal patch RxNorm: 396574 2 Application TD Q48H for pain 03/13/2019 04/11/2019 Inactive oxycodone 15 mg tablet RxNorm: 4699712 1 Tablet(s) PO QID as nee ded for pain 03/06/2019 04/04/2019 Inactive Relistor 150 mg tablet RxNorm: 5128766 3 Tablet(s) PO QD 02/28/2019 0 05/28/2019 Inactive cyclobenzaprine 10 mg tablet RxNorm: 365588 1 Tablet(s) PO TID as needed 02/28/2019 05/28/2019 Inactive phentermine 37.5 mg tablet RxNorm: 278494 1 Tablet(s) PO QAM 201803/15/2019 Inactive Duragesic 100 mcg/hr transdermal patch RxNorm: 552030 2 Application TD Q48H for pain 02/09/2019 03/10/2019 Inactive Daliresp 500 mcg tablet RxNorm: 8629486 TAKE ONE TABLET BY MOUTH DAILY 01/31/2019 05/30/2019 Inactive Premarin 0.45 mg tablet RxNorm: 088747 1 Tablet(s) PO QD 01/31/2019 0 04/30/2019 Inactive fluoxetine 40 mg capsule RxNorm: 044604 Capsule(s) TAKE ONE CAPSULE BY MOUTH EVERY MORNING 01/31/2019 04/30/2019 Inactive levothyroxine 50 mcg tablet RxNorm: 078465 1 Tablet(s) PO QD 201804/10/2019 Inactive follow up in 3 weeks levothyroxine 50 mcg tablet RxNorm: 537554 1 Tablet(s) PO QD 201801/25/2019 Inactive follow up in 3 weeks potassium chloride ER 20 mEq tablet,extended release RxNorm: 695326 2 Tablet(s) PO BID 01/23/2019 01/08/2020 Inactive Synthroid 50 mcg tablet RxNorm: 821893 TAKE ONE TABLET BY MOUTH DAILY 01/16/2019 10/24/2019 Inactive potassium chloride ER 20 mEq tablet,extended release RxNorm: 465429 2 Tablet(s) PO BID 01/04/2019 01/22/2019 Inactive ProAir HFA 90 mcg/actuation aerosol inhaler RxNorm: 541657 INHALE ONE PUFF BY MOUTH EVERY 4 HOURS FOR WHEEZING OR SHORTNESS OF BREATH 01/04/201902/20 Inactive Request already responded to by other me ans (e.g. phone or fax) ProAir HFA 90 mcg/actuation aerosol inhaler RxNorm: 8060692 INHALE ONE PUFF BY MOUTH EVERY 4 HOURS FOR WHEEZING OR SHORTNESS OF BREATH 01/02/201912/23 Inactive gabapentin 300 mg capsule RxNorm: 301611 TAKE ONE CAPSULE BY MO UTH TWICE A DAY 12/30/2018 04/06/2019 Inactive furosemide 40 mg tablet RxNorm: 761362 1 Tablet(s) PO QAM 12/26/2018 02/23/2019 Inactive Compazine 10 mg tablet RxNorm: 046623 1 Tablet(s) PO QID as nee ded for nausea 12/07/2018 12/16/2018 Inactive metolazone 2.5 mg tablet RxNorm: 852389 TAKE ONE TABLET BY MOUT H EVERY MORNING 12/05/2018 01/03/2019 Inactive metformin ER 500 mg tablet,extended release 24 hr RxNorm: 86 0975 TAKE ONE TABLET BY MOUTH DAILY 12/05/2018 01/31/2020 Inactive Synthroid 50 mcg tablet RxNorm: 963438 1 Tablet(s) PO QD 11/25/2018 0 01/03/2019 Inactive DC any other synthroid strengths. Should be 50mcg only cyclobenzaprine 10 mg tablet RxNorm: 935071 TAKE ONE TA BLET BY MOUTH THREE TIMES A DAY NEEDED 11/09/2018 02/06/2019 Inactive metolazone 2.5 mg tablet RxNorm: 269266 1 Tablet(s) PO QAM repl aces 5mg dose 11/02/2018 12/01/2018 Inactive potassium chloride ER 20 mEq tablet,extended release RxNorm: 824536 2 Tablet(s) PO QD 2018 01/02/2019 Inactive Compazine 10 mg tablet RxNorm: 152678 1 Tablet(s) PO QID as nee ded for nausea 10/18/2018 12/07/2018 Inactive furosemide 40 mg tablet RxNorm: 034877 1 Tablet(s) PO QAM 10/12/2018 12/10/2018 Inactive ondansetron 8 mg disintegrating tablet RxNorm: 614694 1 Tablet(s) PO Q6H as needed 10/11/2018 10/17/2018 Inactive scopolamine 1 mg over 3 days transdermal patch RxNorm: 67975 2 1 Application TD behind ear. Take off after three days 10/11/2018 01/02/2019 Inactive furosemide 40 mg tablet RxNorm: 466124 1 Tablet(s) PO QAM 10/10/2018 12/26/2018 Inactive metolazone 5 mg tablet RxNorm: 541330 1 Tablet(s) PO QAM 10/06/2018 1 01/03/2018 Inactive metolazone 5 mg tablet RxNorm: 493458 1 Tablet(s) PO QAM 10/06/2018 1 12/05/2017 Inactive Xtampza ER 36 mg capsule sprinkle RxNorm: 4272408 1 Capsule(s) P O BID 10/05/2018 01/02/2019 Inactive Xtampza ER 36 mg capsule sprinkle RxNorm: 3482800 1 Capsule(s) P O BID 10/05/2018 02/12/2019 Inactive omeprazole 40 mg capsule,delayed release RxNorm: 543025 TAKE ONE CAPSULE BY MOUTH DAILY 10/03/2018 12/31/2018 Inactive Duragesic 100 mcg/hr transdermal patch RxNorm: 680233 2 Application TD Q48H for pain 09/30/2018 10/29/2018 Inactive Synthroid 50 mcg tablet RxNorm: 551037 1 Tablet(s) PO QD 09/29/2018 0 11/25/2018 Inactive DC any other synthroid strengths. Should be 50mcg only Synthroid 50 mcg tablet RxNorm: 218106 1 Tablet(s) PO QD 09/29/2018 1 11/28/2017 Inactive furosemide 40 mg tablet RxNorm: 737739 2 Tablet(s) PO Q AM for 1 week then every other day for 2 weeks 09/27/2018 10/12/2018 Inactive fluoxetine 40 mg capsule RxNorm: 602288 2 Capsule(s) PO QD 09/27/20 18 10/17/2018 Inactive potassium chloride ER 20 mEq tablet,extended release RxNorm: 008695 2 Tablet(s) PO QD for 1 week then every other day for 2 weeks 09/27/2018 2018 Inactive ProAir HFA 90 mcg/actuation aerosol inhaler RxNorm: 7433994 INHALE ONE PUFF BY MOUTH EVERY 4 HOURS FOR WHEEZING OR SHORTNESS OF BREATH 09/26/201811/23 Inactive Synthroid 75 mcg tablet RxNorm: 449200 1 Tablet(s) PO QD 09/09/2018 1 Inactive Synthroid 75 mcg tablet RxNorm: 818346 1 Tablet(s) PO QD 09/09/2018 1 11/28/2017 Inactive furosemide 40 mg tablet RxNorm: 480681 1 Tablet(s) PO QD 09/06/2018 1 Inactive potassium chloride ER 20 mEq tablet,extended release RxNorm: 415873 1 Tablet(s) PO QD 09/06/2018 09/19/2018 Inactive Duragesic 100 mcg/hr transdermal patch RxNorm: 472443 2 Application TD Q48H for pain 08/30/2018 09/28/2018 Inactive gabapentin 300 mg capsule RxNorm: 593491 TAKE ONE CAPSULE BY [facility] TWICE A DAY 08/23/2018 12/20/2018 Inactive Daliresp 500 mcg tablet RxNorm: 5357461 TAKE ONE TABLET BY MOUTH DAILY 08/23/2018 01/19/2019 Inactive Pulmicort 1 mg/2 mL suspension for nebulization RxNorm: 6168 19 USE ONE VIAL VIA NEBULIZER BY MOUTH TWICE A DAY 08/23/2018 07/11/2019 Inactive Synthroid 88 mcg tablet RxNorm: 826021 1 Tablet(s) PO QD 08/19/2018 1 Inactive Medrol (Aníbal) 4 mg tablets in a dose pack RxNorm: 351682 Tablet(s) PO take as directed 08/16/2018 09/05/2018 Inactive Relistor 150 mg tablet RxNorm: 0018308 3 Tablet(s) PO QD 08/16/2018 1 Inactive Zithromax Z-Aníbal 250 mg tablet RxNorm: 605278 Tablet(s) PO take as directed 08/16/2018 09/05/2018 Inactive cyclobenzaprine 10 mg tablet RxNorm: 232859 1 Tablet(s) PO TID as needed 08/16/2018 11/08/2018 Inactive Synthroid 88 mcg tablet RxNorm: 008064 1 Tablet(s) PO Q D NEEDS UPDATED LABS BEFORE FURTHER REFILLS 08/08/2018 08/19/2018 Inactive Premarin 0.45 mg tablet RxNorm: 400473 1 Tablet(s) PO QD 08/03/2018 0 01/31/2019 Inactive fluoxetine 20 mg capsule RxNorm: 242802 TAKE ONE CAPSULE BY BENOIT TH DAILY 08/03/2018 09/26/2018 Inactive Xtampza ER 36 mg capsule sprinkle RxNorm: 2766904 1 Capsule(s) P O BID 08/03/2018 09/01/2018 Inactive metformin ER 500 mg tablet,extended release 24 hr RxNorm: 86 0975 1 Tablet(s) PO QD 08/03/2018 10/31/2018 Inactive Symbicort 160 mcg-4.5 mcg/actuation HFA aerosol inhaler RxNo rm: 5941097 2 Puff(s) INH BID 08/03/2018 01/29/2019 Inactive Duragesic 100 mcg/hr transdermal patch RxNorm: 050551 2 Application TD Q48H for pain 07/29/2018 08/27/2018 Inactive ProAir HFA 90 mcg/actuation aerosol inhaler RxNorm: 461076 INHALE TWO PUFFS BY MOUTH EVERY 4 HOURS FOR WHEEZING OR SHORTNESS OF BREATH 07/27/201802/2018 Inactive Relistor 150 mg tablet RxNorm: 1112756 3 Tablet(s) PO QD 07/20/2018 0 08/15/2018 Inactive metformin ER 500 mg tablet,extended release 24 hr RxNorm: 86 0975 TAKE ONE TABLET BY MOUTH DAILY 07/08/2018 08/02/2018 Inactive fluoxetine 40 mg capsule RxNorm: 038605 TAKE ONE CAPSULE BY BENOIT TH EVERY MORNING 07/08/2018 10/05/2018 Inactive Xtampza ER 18 mg capsule sprinkle RxNorm: 2317451 1 Capsule(s) P O BID 07/08/2018 08/02/2018 Inactive Relistor 150 mg tablet RxNorm: 3218629 3 Tablet(s) PO QD 07/08/2018 0 07/12/2018 Inactive Synthroid 88 mcg tablet RxNorm: 840465 1 Tablet(s) PO Q D NEEDS UPDATED LABS BEFORE FURTHER REFILLS 06/23/2018 07/07/2018 Inactive fluoxetine 40 mg capsule RxNorm: 211444 TAKE ONE CAPSULE BY BENOIT TH EVERY MORNING 06/15/2018 09/26/2018 Inactive orphenadrine citrate ER 100 mg tablet,extended release RxNor m: 940270 TAKE ONE TABLET BY MOUTH TWICE A DAY FOR MUSCLE SPASM 06/15/2018 08/15/2018 [place] [facility] Duragesic 100 mcg/hr transdermal patch RxNorm: 839147 2 Application TD Q48H for pain 05/30/2018 06/28/2018 Inactive ProAir HFA 90 mcg/actuation aerosol inhaler RxNorm: 863609 INHALE TWO PUFFS BY MOUTH EVERY 4 HOURS FOR WHEEZING OR SHORTNESS OF BREATH 05/19/201803/2018 Inactive Chantix Continuing Month Box 1 mg tablet RxNorm: 939164 TAKE ONE TABLET BY MOUTH TWICE A DAY 05/19/2018 08/15/2018 Inactive oxycodone 10 mg tablet RxNorm: 1322338 1-2 Tablet(s) PO QID as n eeded for pain 05/19/2018 07/07/2018 Inactive gabapentin 300 mg capsule RxNorm: 355670 TAKE ONE CAPSULE BY MO UTH TWICE A DAY 05/18/2018 07/16/2018 Inactive ProAir HFA 90 mcg/actuation aerosol inhaler RxNorm: 928500 INHALE TWO PUFFS BY MOUTH EVERY 4 HOURS FOR WHEEZING OR SHORTNESS OF BREATH 05/04/201804/23 Inactive Augmentin 500 mg-125 mg tablet RxNorm: 240062 1 Tablet(s) PO BID 05/03/2018 Inactive oxycodone 10 mg tablet RxNorm: 3891076 1-2 Tablet(s) PO QID as n eeded for pain 04/21/2018 05/18/2018 Inactive Synthroid 88 mcg tablet RxNorm: 264668 1 Tablet(s) PO QD 04/15/2018 0 08/08/2018 Inactive Symbicort 160 mcg-4.5 mcg/actuation HFA aerosol inhaler RxNo rm: 6654320 2 Puff(s) INH BID 04/15/2018 04/10/2019 Inactive Premarin 0.45 mg tablet RxNorm: 547633 1 Tablet(s) PO QD 04/15/2018 0 08/03/2018 Inactive ProAir HFA 90 mcg/actuation aerosol inhaler RxNorm: 453863 2 Puff(s) INH Q4H prn for wheezing or shortness of breath 04/15/2018 05/03/2018 Inactive metformin ER 500 mg tablet,extended release 24 hr RxNorm: 86 0975 1 Tablet(s) PO QD 04/11/2018 07/07/2018 Inactive omeprazole 40 mg capsule,delayed release RxNorm: 441908 TAKE ONE CAPSULE BY MOUTH DAILY 04/10/2018 06/08/2018 Inactive Synthroid 88 mcg tablet RxNorm: 023788 1 Tablet(s) PO QD 04/04/2018 0 04/14/2018 Inactive Synthroid 88 mcg tablet RxNorm: 159013 1 Tablet(s) PO QD 04/04/2018 0 04/03/2018 Inactive orphenadrine citrate ER 100 mg tablet,extended release RxNor m: 148681 1 Tablet(s) PO BID for muscle spasm 04/04/2018 05/03/2018 Inactive metformin ER 500 mg tablet,extended release 24 hr RxNorm: 86 0975 1 Tablet(s) PO QD NEEDS UPDATED LABS 03/31/2018 04/11/2018 Inactive doxycycline hyclate 100 mg capsule RxNorm: 9594674 1 Capsule(s) PO BID 03/31/2018 04/09/2018 Inactive prednisone 20 mg tablet RxNorm: 615732 3 Tablet(s) PO T ID for 3 days then 1 po BID for 3 days then one daily for 3 days 03/31/2018 07/06/2018 Inactiv e Chantix Continuing Month Box 1 mg tablet RxNorm: 271792 TAKE ONE TABLET BY MOUTH TWICE A DAY 03/25/2018 03/30/2018 Inactive oxycodone 10 mg tablet RxNorm: 3914295 1-2 Tablet(s) PO QID as n eeded for pain 03/21/2018 04/20/2018 Inactive Daliresp 500 mcg tablet RxNorm: 3145190 1 Tablet(s) PO QD 03/15/2018 08/22/2018 Inactive metformin ER 500 mg tablet,extended release 24 hr RxNorm: 86 0975 1 Tablet(s) PO QD NEEDS UPDATED LABS 03/14/2018 03/31/2018 Inactive nystatin 100,000 unit/mL oral suspension RxNorm: 575399 5 [place] liter(s) PO QID 03/02/2018 03/15/2018 Inactive nystatin 100,000 unit/mL oral suspension RxNorm: 093350 5 [place]io liter(s) PO QID 03/02/2018 03/01/2018 Inactive oxycodone 10 mg tablet RxNorm: 2301890 1-2 Tablet(s) PO QID as n eeded for pain 02/16/2018 03/20/2018 Inactive fluoxetine 20 mg capsule RxNorm: 233045 1 Capsule(s) PO QD 02/15/20 18 08/02/2018 Inactive metformin ER 500 mg tablet,extended release 24 hr RxNorm: 86 0975 1 Tablet(s) PO QD Needs updated labs 02/14/2018 03/14/2018 Inactive cefdinir 300 mg capsule RxNorm: 819806 1 Capsule(s) PO BID 01/27/20 18 02/04/2018 Inactive orphenadrine citrate ER 100 mg tablet,extended release RxNor m: 151411 1 Tablet(s) PO BID for muscle spasm 01/26/2018 04/04/2018 Inactive gabapentin 300 mg capsule RxNorm: 758496 1 Capsule(s) PO BID 201704/17/2018 Inactive oxycodone 10 mg tablet RxNorm: 7302998 1-2 Tablet(s) PO QID as n eeded for pain 01/17/2018 02/15/2018 Inactive Duragesic 100 mcg/hr transdermal patch RxNorm: 752334 2 Application TD Q48H for pain 01/17/2018 02/15/2018 Inactive gabapentin 300 mg capsule RxNorm: 259278 TAKE ONE CAPSULE BY [facility] TWICE A DAY 12/20/2017 01/18/2018 Inactive fluoxetine 40 mg capsule RxNorm: 717902 TAKE ONE CAPSULE BY [facility] EVERY MORNING 12/15/2017 03/14/2018 Inactive OneTouch Ultra Test strips RxNorm: TEST DAILY 11/04/2017 02/01/2018 Inactive gabapentin 300 mg capsule RxNorm: 638912 1 Capsule(s) P O TID replaces BID dosing 10/26/2017 02/22/2018 Inactive oxycodone 10 mg tablet RxNorm: 7173690 1-2 Tablet(s) PO QID as n eeded for pain 10/18/2017 01/16/2018 Inactive Duragesic 100 mcg/hr transdermal patch RxNorm: 621463 2 Application TD Q48H for pain 10/18/2017 11/16/2017 Inactive gabapentin 300 mg capsule RxNorm: 850434 1 Capsule(s) PO BID 201610/25/2017 Inactive Abilify 5 mg tablet RxNorm: 748624 1 Tablet(s) PO QAM 09/23/201702/2017 Inactive gabapentin 300 mg capsule RxNorm: 872932 1 Capsule(s) PO BID 201610/17/2017 Inactive oxycodone 10 mg tablet RxNorm: 9128280 1-2 Tablet(s) PO QID as n eeded for pain 09/15/2017 10/17/2017 Inactive Duragesic 100 mcg/hr transdermal patch RxNorm: 908436 2 Application TD Q48H for pain 09/15/2017 10/14/2017 Inactive Duragesic 100 mcg/hr transdermal patch RxNorm: 727875 2 Application TD Q48H for pain 09/15/2017 10/24/2019 Inactive oxycodone 10 mg tablet RxNorm: 1810329 1-2 Tablet(s) PO QID as n eeded for pain 09/15/2017 08/15/2018 Inactive Daliresp 500 mcg tablet RxNorm: 0858477 1 Tablet(s) PO QD 09/06/2017 03/15/2018 Inactive Ventolin HFA 90 mcg/actuation aerosol inhaler RxNorm: 920970 2 Puff(s) INH Q4H as needed 09/02/2017 05/19/2018 Inactive oxycodone 10 mg tablet RxNorm: 4452920 1-2 Tablet(s) PO QID as n eeded for pain 08/17/2017 09/14/2017 Inactive Duragesic 100 mcg/hr transdermal patch RxNorm: 968128 2 Application TD Q48H for pain 08/17/2017 09/14/2017 Inactive fluoxetine 40 mg capsule RxNorm: 449292 Capsule(s) TAKE ONE CAPSULE BY MOUTH EVERY MORNING 08/17/2017 12/14/2017 Inactive Pulmicort 1 mg/2 mL suspension for nebulization RxNorm: 6168 19 1 Unit Dose INH BID Dx: COPD (J44.9) 08/16/2017 08/22/2018 Inactive gabapentin 300 mg capsule RxNorm: 454321 1 Capsule(s) PO QHS 201610/18/2017 Inactive fluoxetine 20 mg capsule RxNorm: 657946 1 Capsule(s) PO QD 08/12/20 17 02/14/2018 Inactive Abilify 2 mg tablet RxNorm: 696724 1 Tablet(s) PO QD TA KE ONE TABLET BY MOUTH DAILY 08/12/2017 10/25/2017 Inactive metformin ER 500 mg tablet,extended release 24 hr RxNorm: 86 0975 1 Tablet(s) PO QD 08/10/2017 02/14/2018 Inactive Synthroid 112 mcg tablet RxNorm: 063061 1 Tablet(s) PO QD 08/10/2017 04/15/2018 Inactive oxycodone 10 mg tablet RxNorm: 6971919 1-2 Tablet(s) PO QID as n eeded for pain 07/19/2017 08/16/2017 Inactive Duragesic 100 mcg/hr transdermal patch RxNorm: 006466 2 Application TD Q48H for pain 07/19/2017 08/16/2017 Inactive Ventolin HFA 90 mcg/actuation aerosol inhaler RxNorm: 713676 2 Puff(s) INH Q4H as needed 07/12/2017 09/02/2017 Inactive Abilify 2 mg tablet RxNorm: 325894 1 Tablet(s) PO QD TA KE ONE TABLET BY MOUTH DAILY 07/06/2017 08/11/2017 Inactive gabapentin 800 mg tablet RxNorm: 448730 1 Tablet(s) PO TID 06/22/20 17 07/05/2017 Inactive Chantix Starting Month Box 0.5 mg (11)-1 mg (42) table ts in dose pack RxNorm: 168307 TAKE BY MOUTH INSTRUCTED - PER PACKAGE INSTRUCTIONS 06/0707/04/2017 Inactive Ventolin HFA 90 mcg/actuation aerosol inhaler RxNorm: 569263 2 Puff(s) INH Q4H as needed 05/26/2017 07/12/2017 Inactive Duragesic 100 mcg/hr transdermal patch RxNorm: 829903 2 Application TD Q48H for pain 05/19/2017 06/17/2017 Inactive oxycodone 10 mg tablet RxNorm: 3101577 1-2 Tablet(s) PO QID as n eeded for pain 05/19/2017 07/18/2017 Inactive Abilify 2 mg tablet RxNorm: 812783 TAKE ONE TABLET BY MOUTH DAILY 0 05/10/2017 07/05/2017 Inactive Synthroid 112 mcg tablet RxNorm: 865612 1 Tablet(s) PO QD 05/06/2017 08/10/2017 Inactive metformin ER 500 mg tablet,extended release 24 hr RxNorm: 86 0975 1 Tablet(s) PO QD 05/06/2017 08/10/2017 Inactive Topamax 100 mg tablet RxNorm: 534814 1 Tablet(s) PO QHS 05/06/2017 Inactive Premarin 0.45 mg tablet RxNorm: 527383 1 Tablet(s) PO QD 05/06/2017 0 04/15/2018 Inactive orphenadrine citrate ER 100 mg tablet,extended release RxNor m: 387656 1 Tablet(s) PO TID for muscle spasm--replaces methocarbamol 04/29/2017 Inactive oxycodone 10 mg tablet RxNorm: 0302200 1-2 Tablet(s) PO QID as n eeded for pain 04/21/2017 05/18/2017 Inactive Duragesic 100 mcg/hr transdermal patch RxNorm: 131230 2 Application TD Q48H for pain 04/21/2017 05/18/2017 Inactive fluoxetine 40 mg capsule RxNorm: 666104 Capsule(s) TAKE ONE CAPSULE BY MOUTH EVERY MORNING 04/20/2017 08/17/2017 Inactive Ventolin HFA 90 mcg/actuation aerosol inhaler RxNorm: 907153 2 Puff(s) INH Q4H as needed 04/05/2017 05/26/2017 Inactive Symbicort 160 mcg-4.5 mcg/actuation HFA aerosol inhaler RxNo rm: 6549292 2 Puff(s) INH BID 03/30/2017 04/15/2018 Inactive Spiriva with HandiHaler 18 mcg and inhalation capsules RxNor m: 108241 1 Capsule(s) INH QD USING HANDIHALER 03/30/2017 02/12/2019 Inactive Duragesic 100 mcg/hr transdermal patch RxNorm: 953846 2 Application TD Q48H for pain 03/18/2017 04/16/2017 Inactive oxycodone 10 mg tablet RxNorm: 8128541 1-2 Tablet(s) PO QID as n eeded for pain 03/18/2017 04/20/2017 Inactive metformin ER 500 mg tablet,extended release 24 hr RxNorm: 86 0975 Tablet(s) TAKE ONE TABLET BY MOUTH DAILY 03/01/2017 05/06/2017 Inactive Premarin 0.45 mg tablet RxNorm: 092878 Tablet(s) TAKE ONE TABLE T BY MOUTH DAILY 03/01/2017 05/06/2017 Inactive Synthroid 112 mcg tablet RxNorm: 079547 Tablet(s) TAKE ONE TABLET BY MOUTH DAILY 03/01/2017 05/06/2017 Inactive Daliresp 500 mcg tablet RxNorm: 0926943 1 Tablet(s) PO QD 03/01/2017 09/06/2017 Inactive 16.2 mg-0.1037 mg-0.0194 mg tablet RxNorm: 7524776 Tablet(s) PO PRN for gas and cramping 02/23/2017 04/28/2017 Inactive TAKE TWO TABLET S BY MOUTH THREE TIMES A DAY NEEDED FOR GAS AND CRAMPING gabapentin 800 mg tablet RxNorm: 114336 1 Tablet(s) PO TID repl aces 600mg 02/23/2017 04/28/2017 Inactive Duragesic 100 mcg/hr transdermal patch RxNorm: 523090 2 Application TD Q48H for pain 02/17/2017 03/17/2017 Inactive fluoxetine 20 mg capsule RxNorm: 533706 1 Capsule(s) PO QD 02/18/20 17 08/12/2017 Inactive oxycodone 20 mg tablet RxNorm: 4012047 1 Tablet(s) PO QID as nee ded for pain 02/17/2017 03/17/2017 Inactive Ventolin HFA 90 mcg/actuation aerosol inhaler RxNorm: 644110 INHALE TWO PUFFS BY MOUTH EVERY 4 HOURS NEEDED 02/15/2017 04/05/2017 Inactive Silvadene 1 % topical cream RxNorm: 088290 1 Application TOP BI D to burn area 02/01/2017 09/22/2017 Inactive Topamax 100 mg tablet RxNorm: 537519 TAKE ONE TABLET BY MOUTH EVERY NIGHT AT BEDTIME 01/29/2017 05/06/2017 Inactive Chantix Starting Month Box 0.5 mg (11)-1 mg (42) table ts in dose pack RxNorm: 562759 Tablet(s) PO as directed 01/29/2017 06/01/2017 Inactive Abilify 2 mg tablet RxNorm: 230955 TAKE ONE TABLET BY MOUTH DAILY 0 01/26/2017 04/25/2017 Inactive Chantix Starting Month Box 0.5 mg (11)-1 mg (42) table ts in dose pack RxNorm: 578560 Tablet(s) PO as directed 01/20/2017 01/28/2017 Inactive gabapentin 600 mg tablet RxNorm: 823423 1 Tablet(s) PO TID 01/21/20 17 02/22/2017 Inactive Chantix Continuing Month Box 1 mg tablet RxNorm: 376922 1 Table t(s) PO BID 12/31/2016 06/01/2017 Inactive Spiriva with HandiHaler 18 mcg and inhalation capsules RxNor m: 014420 INHALE THE ENTIRE CONTENTS OF 1 CAPSULE ONCE A DAY USING HANDIHALER 12/31/201607/2017 Inactive Synthroid 112 mcg tablet RxNorm: 820623 TAKE ONE TABLET BY MOUT H DAILY 12/30/2016 03/01/2017 Inactive metformin ER 500 mg tablet,extended release 24 hr RxNorm: 86 0975 TAKE ONE TABLET BY MOUTH DAILY 12/30/2016 03/01/2017 Inactive Premarin 0.45 mg tablet RxNorm: 449320 TAKE ONE TABLET BY MOUTH DAILY 12/30/2016 03/01/2017 Inactive omeprazole 40 mg capsule,delayed release RxNorm: 756169 TAKE ONE CAPSULE BY MOUTH DAILY 12/30/2016 01/25/2018 Inactive Ventolin HFA 90 mcg/actuation aerosol inhaler RxNorm: 582460 INHALE TWO PUFFS BY MOUTH EVERY 4 HOURS NEEDED 12/28/2016 02/13/2017 Inactive fluoxetine 40 mg capsule RxNorm: 151140 TAKE ONE CAPSULE BY [facility] EVERY MORNING 12/15/2016 04/20/2017 Inactive Chantix Continuing Month Box 1 mg tablet RxNorm: 938690 TAKE ONE TABLET BY MOUTH TWICE A DAY 12/04/2016 12/31/2016 Inactive doxycycline hyclate 100 mg capsule RxNorm: 3221772 1 Capsule(s) PO BID 12/01/2016 12/07/2016 Inactive Levaquin 750 mg tablet RxNorm: 032537 1 Tablet(s) PO QD 12/01/2016 Inactive Abilify 2 mg tablet RxNorm: 065449 TAKE ONE TABLET BY MOUTH DAILY 0 11/25/2016 11/30/2016 Inactive Ventolin HFA 90 mcg/actuation aerosol inhaler RxNorm: 159084 INHALE TWO PUFFS BY MOUTH EVERY 4 HOURS NEEDED 11/02/2016 12/19/2016 Inactive Chantix Continuing Month Box 1 mg tablet RxNorm: 074451 Tablet(s) PO as directed 10/30/2016 12/03/2016 Inactive Symbicort 160 mcg-4.5 mcg/actuation HFA aerosol inhaler RxNo rm: 7783580 INHALE TWO PUFFS TWO TIMES A DAY 10/30/2016 03/30/2017 Inactive Abilify 2 mg tablet RxNorm: 717319 1 Tablet(s) PO QD 10/27/201611/24 Inactive amoxicillin 500 mg capsule RxNorm: 270315 1 Capsule(s) PO TID 10/1410/23/2016 Inactive amoxicillin 500 mg capsule RxNorm: 850485 1 Capsule(s) PO TID 10/1410/13/2016 Inactive Synthroid 112 mcg tablet RxNorm: 682653 TAKE ONE TABLET BY MOUT H DAILY 09/28/2016 12/29/2016 Inactive Topamax 100 mg tablet RxNorm: 786324 TAKE ONE TABLET BY MOUTH EVERY NIGHT AT BEDTIME 09/28/2016 01/28/2017 Inactive Premarin 0.45 mg tablet RxNorm: 194218 TAKE ONE TABLET BY MOUTH DAILY 09/28/2016 12/29/2016 Inactive metformin ER 500 mg tablet,extended release 24 hr RxNorm: 86 0975 TAKE ONE TABLET BY MOUTH DAILY 09/28/2016 12/29/2016 Inactive Ventolin HFA 90 mcg/actuation aerosol inhaler RxNorm: 685854 INHALE TWO PUFFS BY MOUTH EVERY 4 HOURS NEEDED 09/22/2016 10/23/2016 Inactive Pulmicort 1 mg/2 mL suspension for nebulization RxNorm: 6168 19 1 Unit Dose INH BID Dx: COPD (J44.9) 09/10/2016 08/16/2017 Inactive Pulmicort 1 mg/2 mL suspension for nebulization RxNorm: 6168 19 1 Unit Dose INH BID 09/10/2016 09/09/2016 Inactive Brovana 15 mcg/2 mL solution for nebulization RxNorm: 136796 1 Unit Dose INH BID Dx: COPD (J44.9) 09/10/2016 01/25/2018 Inactive Brovana 15 mcg/2 mL solution for nebulization RxNorm: 797604 1 Unit Dose INH BID 09/10/2016 09/09/2016 Inactive ipratropium-albuterol 0.5 mg-3 mg(2.5 mg base)/3 mL ne bulization soln RxNorm: 5529886 1 Unit Dose INH Q4H as needed Dx: COPD (J44.9) 09/10/2016 0 02/12/2019 Inactive orphenadrine citrate ER 100 mg tablet,extended release RxNor m: 802676 1 Tablet(s) PO BID for muscle spasm--replaces methocarbamol 09/09/2016 Inactive Chantix Continuing Month Box 1 mg tablet RxNorm: 654523 Tablet(s) PO as directed 09/09/2016 10/30/2016 Inactive orphenadrine citrate ER 100 mg tablet,extended release RxNor m: 448896 1 Tablet(s) PO BID for muscle spasm 09/09/2016 09/08/2016 Inactive Spiriva with HandiHaler 18 mcg and inhalation capsules RxNor m: 571112 INHALE THE ENTIRE CONTENTS OF 1 CAPSULE ONCE A DAY USING HANDIHALER 09/01/201605/2017 Inactive Daliresp 500 mcg tablet RxNorm: 1430451 1 Tablet(s) PO QD 08/27/2016 03/01/2017 Inactive prednisone 20 mg tablet RxNorm: 387541 3 Tablet(s) PO T ID for 3 days then 1 po BID for 3 days then one daily for 3 days 08/26/2016 04/28/2017 Inactiv e Wellbutrin XL 300 mg 24 hr tablet, extended release RxNorm: 441420 TAKE ONE TABLET BY MOUTH EVERY MORNING 07/29/2016 10/26/2016 Inactive gabapentin 600 mg tablet RxNorm: 851616 1 Tablet(s) PO BID 06/26/20 16 12/22/2016 Inactive fluoxetine 40 mg capsule RxNorm: 540049 TAKE ONE CAPSULE BY [facility] EVERY MORNING 06/24/2016 11/20/2016 Inactive Duragesic 100 mcg/hr transdermal patch RxNorm: 404351 2 Application TD Q48H for pain 06/05/2016 07/04/2016 Inactive oxycodone 10 mg tablet RxNorm: 4952763 1-2 Tablet(s) PO QID as n eeded for pain 06/05/2016 03/17/2017 Inactive Belladonna-Phenobarbital 48 mg tablet,extended release RxNor m: 2 Tablet(s) PO TID 06/05/2016 01/19/2017 Inactive Premarin 0.45 mg tablet RxNorm: 273009 TAKE ONE TABLET BY MOUTH DAILY 05/27/2016 09/23/2016 Inactive Topamax 100 mg tablet RxNorm: 441416 TAKE ONE TABLET BY MOUTH EVERY NIGHT AT BEDTIME 05/27/2016 09/27/2016 Inactive Synthroid 112 mcg tablet RxNorm: 144240 TAKE ONE TABLET BY MOUT H DAILY 05/27/2016 09/23/2016 Inactive metformin ER 500 mg tablet,extended release 24 hr RxNorm: 86 0975 TAKE ONE TABLET BY MOUTH DAILY 05/27/2016 09/23/2016 Inactive Symbicort 160 mcg-4.5 mcg/actuation HFA aerosol inhaler RxNo rm: 9094570 INHALE TWO PUFFS TWO TIMES A DAY 05/27/2016 10/23/2016 Inactive Ventolin HFA 90 mcg/actuation aerosol inhaler RxNorm: 505041 INHALE TWO PUFFS BY MOUTH EVERY 4 HOURS NEEDED 05/21/2016 07/07/2016 Inactive omeprazole 40 mg capsule,delayed release RxNorm: 926117 1 Capsu le(s) PO QD 05/06/2016 08/03/2016 Inactive metformin ER 500 mg tablet,extended release 24 hr RxNorm: 86 0975 TAKE ONE TABLET BY MOUTH DAILY 04/23/2016 05/22/2016 Inactive methocarbamol 750 mg tablet RxNorm: 070981 2 Tablet(s) PO TID as needed for muscle spasm 04/23/2016 09/08/2016 Inactive Synthroid 112 mcg tablet RxNorm: 289283 TAKE ONE TABLET BY MOUT H DAILY 04/23/2016 05/22/2016 Inactive Spiriva with HandiHaler 18 mcg and inhalation capsules RxNor m: 175732 INHALE THE ENTIRE CONTENTS OF 1 CAPSULE ONCE A DAY USING HANDIHALER 04/09/201608/2016 Inactive Diflucan 100 mg tablet RxNorm: 850088 1 Tablet(s) PO QD 04/08/2016 Inactive doxycycline hyclate 100 mg capsule RxNorm: 2059950 1 Capsule(s) PO BID 04/08/2016 04/17/2016 Inactive doxycycline hyclate 100 mg capsule RxNorm: 2952587 1 Capsule(s) PO BID 04/08/2016 04/07/2016 Inactive Diflucan 100 mg tablet RxNorm: 254557 1 Tablet(s) PO QD 04/08/2016 Inactive ondansetron HCl 4 mg tablet RxNorm: 947725 1 Tablet(s) PO Q4H as needed for nausea and vomiting 04/08/2016 09/22/2017 Inactive gabapentin 600 mg tablet RxNorm: 226887 TAKE ONE TABLET BY MOUT H TWICE A DAY 03/24/2016 06/25/2016 Inactive Synthroid 112 mcg tablet RxNorm: 535894 TAKE ONE TABLET BY MOUT H DAILY 02/25/2016 04/22/2016 Inactive Levaquin 500 mg tablet RxNorm: 236114 1 Tablet(s) PO QD 01/23/2016 Inactive prednisone 20 mg tablet RxNorm: 480266 1 Tablet(s) PO T ID for 3 days then 1 po BID for 3 days then one daily for 3 days 01/23/2016 08/25/2016 Inactiv e [employer] Ultra Test strips RxNorm: TEST BLOOD SUGAR ONCE DAILY 250.00 01/09/2016 11/04/2017 Inactive methocarbamol 750 mg tablet RxNorm: 786144 2 Tablet(s) PO TID as needed for muscle spasm 01/09/2016 04/23/2016 Inactive lactulose 10 gram/15 mL oral solution RxNorm: 328143 [address](s) PO QD 01/09/2016 09/22/2017 Inactive TAKE 1 TABLESPOON BY MOUTH ONCE DAILY metformin ER 500 mg tablet,extended release 24 hr RxNorm: 86 0975 1 Tablet(s) PO QD 12/26/2015 04/22/2016 Inactive fluoxetine 20 mg capsule RxNorm: 062167 1 Capsule(s) PO QD 12/23/19 16 06/19/2016 Inactive Premarin 0.45 mg tablet RxNorm: 844207 TAKE ONE TABLET BY MOUTH DAILY 12/23/2015 05/20/2016 Inactive fluoxetine 40 mg capsule RxNorm: 548150 1 Capsule(s) PO QD 12/23/19 16 06/19/2016 Inactive TAKE ONE CAPSULE BY MOUTH EV JANKI MORNING azithromycin 500 mg tablet RxNorm: 532611 1 Tablet(s) PO QD 016 12/19/2015 Inactive Zofran 4 mg tablet RxNorm: 464942 1 Tablet(s) PO Q4H prn nausea /vomiting 12/13/2015 03/30/2018 Inactive azithromycin 500 mg tablet RxNorm: 623173 1 Tablet(s) PO QD 016 12/12/2015 Inactive Duragesic 100 mcg/hr transdermal patch RxNorm: 290318 2 Application TD Q48H for pain 12/09/2015 01/07/2016 Inactive oxycodone 10 mg tablet RxNorm: 8802309 1-2 Tablet(s) PO QID as n eeded for pain 12/09/2015 06/04/2016 Inactive Bactroban 2 % topical cream RxNorm: 715612 Application TOP BID 11/2208/25/2016 Inactive doxycycline hyclate 100 mg capsule RxNorm: 2396003 1 Capsule(s) PO BID 12/03/2015 12/12/2015 Inactive Topamax 100 mg tablet RxNorm: 631803 TAKE ONE TABLET BY MOUTH EVERY NIGHT AT BEDTIME 11/25/2015 05/22/2016 Inactive Symbicort 160 mcg-4.5 mcg/actuation HFA aerosol inhaler RxNo rm: 8453442 INHALE TWO PUFFS TWO TIMES A DAY 11/25/2015 05/22/2016 Inactive Synthroid 112 mcg tablet RxNorm: 087729 Tablet(s) TAKE ONE TABLET BY MOUTH DAILY 11/25/2015 02/22/2016 Inactive omeprazole 40 mg capsule,delayed release RxNorm: 140171 1 Capsu le(s) PO QD 11/12/2015 05/05/2016 Inactive oxycodone 10 mg tablet RxNorm: 9029134 1-2 Tablet(s) PO QID as n eeded for pain 11/05/2015 12/08/2015 Inactive Duragesic 100 mcg/hr transdermal patch RxNorm: 445875 2 Application TD Q48H for pain 11/05/2015 12/04/2015 Inactive omeprazole 40 mg capsule,delayed release RxNorm: 842990 1 Capsu le(s) PO QD 10/07/2015 11/11/2015 Inactive Januvia 100 mg tablet RxNorm: 604378 TAKE ONE TABLET BY MOUTH DAILY 09/11/2015 12/25/2015 Inactive Zithromax 500 mg tablet RxNorm: 436723 1 Tablet(s) PO QD 09/10/2015 1 Inactive prednisone 20 mg tablet RxNorm: 692867 1 Tablet(s) PO T ID for 3 days then 1 po BID for 3 days then one daily for 3 days 09/10/2015 08/25/2016 Inactiv e Wellbutrin XL 300 mg 24 hr tablet, extended release RxNorm: 986268 1 Tablet(s) PO QAM 09/10/2015 12/02/2015 Inactive Topamax 100 mg tablet RxNorm: 417664 TAKE ONE TABLET BY MOUTH EVERY NIGHT AT BEDTIME 09/02/2015 11/24/2015 Inactive Synthroid 112 mcg tablet RxNorm: 497407 TAKE ONE TABLET BY MOUT H DAILY 09/02/2015 11/25/2015 Inactive methocarbamol 750 mg tablet RxNorm: 671192 2 Tablet(s) PO TID as needed for muscle spasm 08/15/2015 01/09/2016 Inactive Wellbutrin XL 150 mg 24 hr tablet, extended release RxNorm: 677186 TAKE ONE TABLET BY MOUTH EVERY MORNING 08/13/2015 08/13/2015 Inactive gabapentin 600 mg tablet RxNorm: 402646 1 Tablet(s) PO BID 08/13/20 15 02/08/2016 Inactive Wellbutrin XL 300 mg 24 hr tablet, extended release RxNorm: 579549 1 Tablet(s) PO QAM 08/06/2015 09/09/2015 Inactive Wellbutrin XL 150 mg 24 hr tablet, extended release RxNorm: 116545 1 Tablet(s) PO QAM 07/18/2015 08/05/2015 Inactive prednisone 20 mg tablet RxNorm: 781961 1 Tablet(s) PO BID 07/18/2015 07/22/2015 Inactive doxycycline hyclate 100 mg tablet,delayed release RxNorm: 43 4018 1 Tablet(s) PO BID 07/18/2015 07/27/2015 Inactive pravastatin 40 mg tablet RxNorm: 741101 1 Tablet(s) PO QD NEEDS FASTING LAB 07/15/2015 07/14/2015 Inactive pravastatin 40 mg tablet RxNorm: 947045 1 Tablet(s) PO QD NEEDS FASTING LAB 07/15/2015 01/25/2018 Inactive Ventolin HFA 90 mcg/actuation aerosol inhaler RxNorm: 291596 2 Puff(s) INH Q4H 07/08/2015 07/07/2015 Inactive prn Premarin 0.45 mg tablet RxNorm: 775328 1 Tablet(s) PO QD 07/01/2015 0 12/22/2015 Inactive pravastatin 40 mg tablet RxNorm: 694061 1 Tablet(s) PO QD NEEDS FASTING LAB 06/14/2015 07/15/2015 Inactive Ventolin HFA 90 mcg/actuation aerosol inhaler RxNorm: 1752040 2 Puff(s) INH Q4H 06/06/2015 07/08/2015 Inactive prn albuterol sulfate 2.5 mg/3 mL (0.083 %) solution for n ebulization RxNorm: 016638 1 Unit Dose INH QID 05/30/2015 No Stop Date Active Duragesic 100 mcg/hr transdermal patch RxNorm: 557779 2 Application TD Q48H for pain 04/29/2015 05/28/2015 Inactive gabapentin 600 mg tablet RxNorm: 910819 1 Tablet(s) PO BID 04/11/20 15 08/13/2015 Inactive Onglyza 5 mg tablet RxNorm: 599806 1 Tablet(s) PO QD for blood suga r 04/10/2015 04/15/2015 Inactive [Brand Copay Card: RxBIN:[id number] PCN:CRISTIANA RxGRP:[id number] ID#:[id number]] methocarbamol 750 mg tablet RxNorm: 170054 2 Tablet(s) PO TID as needed for muscle spasm 03/28/2015 08/15/2015 Inactive pravastatin 40 mg tablet RxNorm: 728524 1 Tablet(s) PO QD 03/19/2015 03/18/2015 Inactive pravastatin 40 mg tablet RxNorm: 035878 1 Tablet(s) PO QD 03/19/2015 06/14/2015 Inactive lactulose 10 gram/15 mL oral solution RxNorm: 089720 [address]s) PO QD 03/07/2015 01/09/2016 Inactive TAKE 1 TABLESPOON BY MOUTH ONCE DAILY oxycodone 20 mg tablet RxNorm: 2348261 1 Tablet(s) PO QID as nee ded for pain 03/05/2015 07/08/2015 Inactive Topamax 100 mg tablet RxNorm: 376368 1 Tablet(s) PO QHS TAKE ONE TABLET BY MOUTH AT BEDTIME 02/25/2015 02/12/2019 Inactive metformin ER 500 mg tablet,extended release 24 hr RxNorm: 86 0975 1 Tablet(s) PO QD 02/11/2015 03/04/2015 Inactive take one tablet by mouth every day Daliresp 500 mcg tablet RxNorm: 1710681 1 Tablet(s) PO QD 02/11/2015 08/09/2015 Inactive Endocet 10 mg-325 mg tablet RxNorm: 0687462 1 Tablet(s) PO Q4H as needed for pain 01/23/2015 01/23/2015 Inactive gabapentin 600 mg tablet RxNorm: 288649 1 Tablet(s) PO BID 01/23/20 15 04/11/2015 Inactive methocarbamol 750 mg tablet RxNorm: 819804 2 Tablet(s) PO TID as needed for muscle spasm 01/15/2015 02/13/2015 Inactive fluoxetine 40 mg capsule RxNorm: 633999 1 Capsule(s) PO QD 01/14/20 15 12/23/2015 Inactive TAKE ONE CAPSULE BY MOUTH EV JANKI MORNING fluoxetine 20 mg capsule RxNorm: 311653 1 Capsule(s) PO QD 01/14/20 15 12/23/2015 Inactive Premarin 0.45 mg tablet RxNorm: 779739 1 Tablet(s) PO QD 01/02/2015 0 07/01/2015 Inactive Endocet 10 mg-325 mg tablet RxNorm: 3181714 1-2 Tablet(s) PO Q4H 02/12/2019 Inactive PRN PAIN Duragesic 100 mcg/hr transdermal patch RxNorm: 387166 2 Application TD Q48H for pain 12/25/2014 01/23/2015 Inactive Topamax 100 mg tablet RxNorm: 358688 1 Tablet(s) PO QHS TAKE ONE TABLET BY MOUTH AT BEDTIME 12/25/2014 02/24/2015 Inactive Tudorza Pressair 400 mcg/actuation breath activated RxNorm: 7069277 1 BID INHALE ONE PUFF INTO LUNGS TWO TIMES A DAY 12/17/2014 05/15/2015 Inactive Endocet 10 mg-325 mg tablet RxNorm: 7077182 1-2 Tablet(s) PO Q4H 12/19/2014 Inactive PRN PAIN Duragesic 100 mcg/hr transdermal patch RxNorm: 199969 2 Application TD Q48H for pain 11/20/2014 12/24/2014 Inactive [employer] Ultra Test strips RxNorm: TEST BLOOD SUGAR ONCE DAILY 250.00 11/16/2014 01/08/2016 Inactive omeprazole 40 mg capsule,delayed release RxNorm: 262465 1 Capsu le(s) PO QD 11/13/2014 11/12/2015 Inactive metformin ER 500 mg tablet,extended release 24 hr RxNorm: 86 0975 1 Tablet(s) PO QD 11/12/2014 02/11/2015 Inactive take one tablet by mouth every day Symbicort 160 mcg-4.5 mcg/actuation HFA aerosol inhaler RxNo rm: 3434130 2 Puff(s) INH BID 11/12/2014 03/11/2015 Inactive INHALE 2 PUFFS O RALLY TWO TIMES A DAY gabapentin 800 mg tablet RxNorm: 057899 1 Tablet(s) PO QD TAKE ONE TABLET BY MOUTH ONCE A DAY 10/22/2014 01/01/2015 Inactive Endocet 10 mg-325 mg tablet RxNorm: 2160918 1-2 Tablet(s) PO Q4H 11/15/2014 Inactive PRN PAIN Duragesic 100 mcg/hr transdermal patch RxNorm: 890475 2 Application TD Q48H for pain 10/17/2014 11/19/2014 Inactive gabapentin 800 mg tablet RxNorm: 395227 1 Tablet(s) PO QD TAKE ONE TABLET BY MOUTH ONCE A DAY 10/04/2014 10/21/2014 Inactive Premarin 0.9 mg tablet RxNorm: 320725 1 Tablet(s) PO QD TAKE ONE TABLET BY MOUTH ONCE A DAY 10/04/2014 01/01/2015 Inactive Spiriva with HandiHaler 18 mcg & inhalation capsules RxNorm: 892139 1 Capsule(s) INH QD 10/03/2014 04/30/2015 Inactive Levaquin 500 mg tablet RxNorm: 155479 1 Tablet(s) PO QD 10/03/2014 Inactive prednisone 20 mg tablet RxNorm: 045503 1 Tablet(s) PO QD 10/03/2014 1 12/09/2013 Inactive Duragesic 100 mcg/hr transdermal patch RxNorm: 302207 2 Application TD Q48H for pain 09/18/2014 10/16/2014 Inactive Endocet 10 mg-325 mg tablet RxNorm: 4717514 1-2 Tablet(s) PO Q4H 10/16/2014 Inactive PRN PAIN Synthroid 112 mcg tablet RxNorm: 092256 1 Tablet(s) QD 09/10/2014 Inactive Synthroid 112 mcg tablet RxNorm: 363864 TAKE ONE TABLET BY MOUTH ONE TIME A DAY. NEEDS LABS 09/10/2014 02/06/2015 Inactive omeprazole 40 mg capsule,delayed release RxNorm: 043968 1 Capsu le(s) PO QD 09/03/2014 11/13/2014 Inactive omeprazole 40 mg capsule,delayed release RxNorm: 071852 1 Capsu le(s) PO QD 09/03/2014 09/02/2014 Inactive Spiriva with HandiHaler 18 mcg & inhalation capsules RxNorm: 817608 1 Capsule(s) INH QD 08/27/2014 10/02/2014 Inactive gabapentin 600 mg tablet RxNorm: 495813 1 Tablet(s) PO BID 08/27/20 14 10/22/2014 Inactive Endocet 10 mg-325 mg tablet RxNorm: 3156024 1-2 Tablet(s) PO Q4H 09/17/2014 Inactive PRN PAIN fentanyl 100 mcg/hr transdermal patch RxNorm: 137274 1 Unit Dos e TD QD 08/21/2014 09/19/2014 Inactive Daliresp 500 mcg tablet RxNorm: 6723632 1 Tablet(s) PO QD 08/13/2014 02/11/2015 Inactive Synthroid 112 mcg tablet RxNorm: 682865 TAKE ONE TABLET BY MOUTH ONE TIME A DAY. NEEDS LABS 08/10/2014 09/10/2014 Inactive Endocet 10 mg-325 mg tablet RxNorm: 3294959 1-2 Tablet(s) PO Q4H 08/17/2014 Inactive PRN PAIN Duragesic 100 mcg/hr transdermal patch RxNorm: 915132 2 Application TD Q48H for pain 07/19/2014 09/17/2014 Inactive fluoxetine 40 mg capsule RxNorm: 165425 1 Capsule(s) PO QD 07/17/20 14 01/14/2015 Inactive TAKE ONE CAPSULE BY MOUTH EV JANKI MORNING fluoxetine 20 mg capsule RxNorm: 210117 1 Capsule(s) PO QD 07/17/20 14 01/14/2015 Inactive Spiriva with HandiHaler 18 mcg & inhalation capsules RxNorm: 679441 1 Capsule(s) INH QD 07/17/2014 08/26/2014 Inactive INHALE CONTENTS OF 1 CAPSULE(S) WITH HANDIHALER ONCE DAILY Zofran 4 mg tablet RxNorm: 305588 1 Tablet(s) PO Q4H prn nausea 07/25/2014 Inactive Synthroid 112 mcg tablet RxNorm: 822824 1 Tablet(s) PO QD 07/09/2014 07/09/2014 Inactive methocarbamol 750 mg tablet RxNorm: 205544 2 Tablet(s) PO TID as needed for muscle spasm 07/09/2014 09/06/2014 Inactive Synthroid 112 mcg tablet RxNorm: 723468 1 Tablet(s) PO QD - nee d labs 07/09/2014 08/07/2014 Inactive Medrol (Aníbal) 4 mg tablets in a dose pack RxNorm: 243178 6 Tablet(s) PO QD --then as directed 07/03/2014 07/08/2014 Inactive Tudorza Pressair 400 mcg/actuation breath activated RxNorm: 7818809 1 Puff(s) INH BID 07/03/2014 12/17/2014 Inactive cefdinir 300 mg capsule RxNorm: 207043 1 Capsule(s) PO BID 07/03/20 14 07/12/2014 Inactive Topamax 100 mg tablet RxNorm: 087563 Tablet(s) TAKE ONE TABLET BY MOUTH AT BEDTIME 07/02/2014 02/25/2015 Inactive Duragesic 100 mcg/hr transdermal patch RxNorm: 835004 2 Application TD Q48H for pain 06/25/2014 07/18/2014 Inactive Endocet 10 mg-325 mg tablet RxNorm: 3732923 1-2 Tablet(s) PO Q4H 07/18/2014 Inactive PRN PAIN metformin ER 500 mg tablet,extended release 24 hr RxNorm: 86 0975 1 Tablet(s) PO QD Needs labs 06/18/2014 07/01/2014 Inactive take one tablet by mouth every day Duragesic 100 mcg/hr transdermal patch RxNorm: 999599 2 Application TD Q48H for pain 05/22/2014 06/24/2014 Inactive Synthroid 112 mcg tablet RxNorm: 044344 1 Tablet(s) PO QD 05/22/2014 07/09/2014 Inactive Endocet 10 mg-325 mg tablet RxNorm: 4053877 1-2 Tablet(s) PO Q4H 06/20/2014 Inactive PRN PAIN Endocet 10 mg-325 mg tablet RxNorm: 1868522 1-2 Tablet(s) PO Q4H 05/21/2014 Inactive PRN PAIN Duragesic 100 mcg/hr transdermal patch RxNorm: 333117 2 Application TD Q48H for pain 04/25/2014 05/21/2014 Inactive Daliresp 500 mcg tablet RxNorm: 2791881 1 Tablet(s) PO QD 04/24/2014 08/13/2014 Inactive Symbicort 160 mcg-4.5 mcg/actuation HFA aerosol inhaler RxNo rm: 6562206 2 Puff(s) INH BID 04/24/2014 08/21/2014 Inactive INHALE 2 PUFFS O RALLY TWO TIMES A DAY metformin ER 500 mg tablet,extended release 24 hr RxNorm: 86 0975 1 Tablet(s) PO QD 04/24/2014 11/12/2014 Inactive TAKE ONE TABLET BY MOUTH EVERY DAY [AttnRPh:Saving Apply/Adjudicate RxGRP:LDMGRP RxBIN:[id number] RxPCN:2012 PCode:01 ID#:[id number]] Symbicort 160 mcg-4.5 mcg/actuation HFA aerosol inhaler RxNo rm: 3548237 2 Puff(s) INH BID 04/24/2014 11/12/2014 Inactive INHALE 2 PUFFS O RALLY TWO TIMES A DAY Premarin 0.9 mg tablet RxNorm: 275129 1 Tablet(s) PO QD 04/24/2014 Inactive TAKE ONE TABLET BY MOUTH EVERY DAY metformin ER 500 mg tablet,extended release 24 hr RxNorm: 86 0975 1 Tablet(s) PO QD Needs labs 04/24/2014 06/18/2014 Inactive TAKE ONE TABLET BY MOUTH EVERY DAY [AttnRPh:Saving Apply/Adjudicate RxGRP:LDMGRP RxBIN:[id number] RxPCN:2012 PCode:01 ID#:[id number]] gabapentin 800 mg tablet RxNorm: 890537 1 Tablet(s) PO QD 04/24/2014 10/04/2014 Inactive TAKE ONE TABLET BY MOUTH EVERY DAY Topamax 100 mg tablet RxNorm: 723833 1 Tablet(s) PO QHS 04/17/2014 Inactive Topamax 100 mg tablet RxNorm: 818227 TAKE ONE TABLET BY MOUTH A T BEDTIME 04/17/2014 07/01/2014 Inactive Tudorza Pressair 400 mcg/actuation breath activated RxNorm: 5892155 1 Puff(s) INH BID 04/11/2014 07/02/2014 Inactive Duragesic 100 mcg/hr transdermal patch RxNorm: 275299 2 Application TD Q48H for pain 03/27/2014 04/24/2014 Inactive Endocet 10 mg-325 mg tablet RxNorm: 1604492 1-2 Tablet(s) PO Q4H 04/24/2014 Inactive PRN PAIN Robaxin 750 mg tablet RxNorm: 194432 2 Tablet(s) PO TID as need ed for spasm 02/23/2014 03/28/2015 Inactive Duragesic 100 mcg/hr transdermal patch RxNorm: 451825 2 Application TD Q48H for pain 02/23/2014 No Stop Date Active Endocet 10 mg-325 mg tablet RxNorm: 6910246 1-2 Tablet(s) PO Q4H 03/23/2014 Inactive PRN PAIN Synthroid 112 mcg tablet RxNorm: 757088 1 Tablet(s) PO QD TAKE ONE TABLET BY MOUTH EVERY DAY 02/15/2014 05/22/2014 Inactive Zithromax 500 mg tablet RxNorm: 835531 1 Tablet(s) PO QD 01/30/2014 0 02/05/2014 Inactive Diflucan 100 mg tablet RxNorm: 653202 1 Tablet(s) PO QD 01/30/2014 Inactive prednisone 20 mg tablet RxNorm: 830752 1 Tablet(s) PO BID 01/30/2014 02/05/2014 Inactive fluoxetine 40 mg capsule RxNorm: 248818 1 Capsule(s) PO QD 01/23/20 14 07/16/2014 Inactive TAKE ONE CAPSULE BY MOUTH EV JANKI MORNING fluoxetine 40 mg capsule RxNorm: 017730 1 Capsule(s) PO QD 01/23/20 14 07/17/2014 Inactive TAKE ONE CAPSULE BY MOUTH EV JANKI MORNING cefdinir 300 mg capsule RxNorm: 297719 1 Capsule(s) PO BID 01/16/20 14 01/29/2014 Inactive Zithromax 500 mg tablet RxNorm: 121165 1 Tablet(s) PO QD 01/16/2014 0 01/22/2014 Inactive prednisone 20 mg tablet RxNorm: 338356 1 Tablet(s) PO BID 01/16/2014 01/22/2014 Inactive Spiriva with HandiHaler 18 mcg and inhalation capsules RxNor m: 081050 1 Capsule(s) INH QD 12/18/2013 07/17/2014 Inactive INHALE CONTENT S OF 1 CAPSULE(S) WITH HANDIHALER ONCE DAILY fluoxetine 20 mg capsule RxNorm: 875144 1 Capsule(s) PO QD 12/18/19 14 06/15/2014 Inactive Spiriva with HandiHaler 18 mcg & inhalation capsules RxNorm: 441498 1 Capsule(s) INH QD 12/18/2013 06/15/2014 Inactive INHALE CONTENTS OF 1 CAPSULE(S) WITH HANDIHALER ONCE DAILY fluoxetine 20 mg capsule RxNorm: 252475 1 Capsule(s) PO QD 12/18/19 14 07/17/2014 Inactive cefdinir 300 mg capsule RxNorm: 733352 2 Capsule(s) PO QD 12/12/2013 12/21/2013 Inactive Duragesic 100 mcg/hr transdermal patch RxNorm: 333086 2 Application TD Q48H for pain 12/08/2013 12/07/2013 Inactive Topamax 100 mg tablet RxNorm: 069522 1 Tablet(s) PO QHS 12/04/2013 Inactive Endocet 10 mg-325 mg tablet RxNorm: 4029224 1-2 Tablet(s) PO Q4H 12/26/2013 Inactive PRN PAIN Robaxin 750 mg tablet RxNorm: 125842 2 Tablet(s) PO TID as need ed for spasm 11/07/2013 01/05/2014 Inactive gabapentin 800 mg tablet RxNorm: 251291 1 Tablet(s) PO QD 10/16/2013 04/24/2014 Inactive TAKE ONE TABLET BY MOUTH EVERY DAY Symbicort 160 mcg-4.5 mcg/actuation HFA aerosol inhaler RxNo rm: 0206968 2 Puff(s) INH BID 10/16/2013 04/24/2014 Inactive INHALE 2 PUFFS O RALLY TWO TIMES A DAY Premarin 0.9 mg tablet RxNorm: 331410 1 Tablet(s) PO QD 10/16/2013 Inactive TAKE ONE TABLET BY MOUTH EVERY DAY metformin ER 500 mg tablet,extended release 24 hr RxNorm: 86 0975 1 Tablet(s) PO QD 10/16/2013 04/24/2014 Inactive TAKE ONE TABLET BY MOUTH EVERY DAY Daliresp 500 mcg tablet RxNorm: 5080382 1 Tablet(s) PO QD 10/16/2013 04/24/2014 Inactive Robaxin 750 mg tablet RxNorm: 276177 2 Tablet(s) PO TID as need ed for spasm 10/10/2013 11/06/2013 Inactive Duragesic 100 mcg/hr transdermal patch RxNorm: 647044 2 Application TD Q48H for pain 10/09/2013 No Stop Date Active Soma 350 mg tablet RxNorm: 175318 1 Tablet(s) PO TID 09/27/201310/09 Inactive TAKE ONE TABLET BY MOUTH THREE TIMES A D AY lactulose 10 gram/15 mL oral solution RxNorm: 907521 [address](s) PO QD 09/13/2013 03/07/2015 Inactive TAKE 1 TABLESPOON BY MOUTH ONCE DAILY Duragesic 100 mcg/hr transdermal patch RxNorm: 949808 2 Application TD Q48H for pain 09/06/2013 No Stop Date Active Endocet 10 mg-325 mg tablet RxNorm: 8830611 1-2 Tablet(s) PO Q4H 09/27/2013 Inactive PRN PAIN lancets 28 gauge RxNorm: Miscellaneous As needed for blo od glucose sticks 08/24/2013 No Stop Date Active 16.2 mg-0.1037 mg-0.0194 mg tablet RxNorm: 0591767 Tablet(s) PO PRN for gas and cramping 08/24/2013 01/19/2017 Inactive TAKE TWO TABLET S BY MOUTH THREE TIMES A DAY NEEDED FOR GAS AND CRAMPING Topamax 100 mg tablet RxNorm: 625506 1 Tablet(s) PO QHS 07/31/2013 Inactive Diflucan 100 mg tablet RxNorm: 313799 1 Tablet(s) PO QD 07/27/2013 Inactive cefdinir 300 mg capsule RxNorm: 641408 1 Capsule(s) PO BID 07/26/20 13 08/08/2013 Inactive Daliresp 500 mcg tablet RxNorm: 0154955 1 Tablet(s) PO QD 07/25/2013 10/15/2013 Inactive fluoxetine 40 mg capsule RxNorm: 926383 1 Capsule(s) PO QD 07/25/20 13 01/22/2014 Inactive TAKE ONE CAPSULE BY MOUTH EV JANKI MORNING Senokot-S 8.6 mg-50 mg tablet RxNorm: 2476880 1 Tablet(s) PO BID 10/25/2013 Inactive doxycycline hyclate 100 mg capsule RxNorm: 0898929 1 Capsule(s) PO BID 06/28/2013 07/07/2013 Inactive prednisone 20 mg tablet RxNorm: 595592 1 Tablet(s) PO BID 06/28/2013 07/04/2013 Inactive Zofran 4 mg tablet RxNorm: 748412 1 Tablet(s) PO Q4H prn nausea 03/201307/05/2013 Inactive Spiriva with HandiHaler 18 mcg & inhalation capsules RxNorm: 632559 1 Capsule(s) INH QD 06/26/2013 12/18/2013 Inactive INHALE CONTENTS OF 1 CAPSULE(S) WITH HANDIHALER ONCE DAILY Synthroid 112 mcg tablet RxNorm: 046390 1 Tablet(s) PO QD TAKE ONE TABLET BY MOUTH EVERY DAY 06/19/2013 02/15/2014 Inactive fluoxetine 20 mg capsule RxNorm: 924468 1 Capsule(s) PO QD 06/19/2012/18/2013 Inactive Ventolin HFA 90 mcg/actuation Aerosol Inhaler RxNorm: 5644803 2 Puff(s) INH Q4H 06/05/2013 No Stop Date Active prn Soma 350 mg tablet RxNorm: 204240 1 Tablet(s) PO TID 06/05/201307/04 Inactive TAKE ONE TABLET BY MOUTH THREE TIMES A D AY prednisone 20 mg tablet RxNorm: 663475 1 Tablet(s) PO QD 05/31/2013 0 06/06/2013 Inactive Topamax 100 mg tablet RxNorm: 867121 1 Tablet(s) PO QHS 05/22/2013 Inactive Levaquin 500 mg tablet RxNorm: 671117 1 Tablet(s) PO QD 05/03/2013 Inactive Diflucan 100 mg tablet RxNorm: 016476 1 Tablet(s) PO QD 05/03/2013 Inactive Daliresp 500 mcg tablet RxNorm: 1058359 1 Tablet(s) PO QD 05/01/2013 07/24/2013 Inactive Daliresp 500 mcg tablet RxNorm: 5663265 1 Tablet(s) PO QD 05/01/2013 04/30/2013 Inactive gabapentin 800 mg tablet RxNorm: 725481 1 Tablet(s) PO QD 04/10/2013 10/06/2013 Inactive TAKE ONE TABLET BY MOUTH EVERY DAY metformin ER 500 mg tablet,extended release 24 hr RxNorm: 86 0977 1 Tablet(s) PO QD 04/10/2013 10/06/2013 Inactive TAKE ONE TABLET BY MOUTH EVERY DAY Premarin 0.9 mg tablet RxNorm: 951245 1 Tablet(s) PO QD 04/10/2013 Inactive TAKE ONE TABLET BY MOUTH EVERY DAY Symbicort 160 mcg-4.5 mcg/actuation HFA aerosol inhaler RxNo rm: 8825635 2 Puff(s) INH BID 04/10/2013 10/06/2013 Inactive INHALE 2 PUFFS O RALLY TWO TIMES A DAY Synthroid 112 mcg tablet RxNorm: 791993 1 Tablet(s) PO QD TAKE ONE TABLET BY MOUTH EVERY DAY 04/10/2013 06/18/2013 Inactive Ventolin HFA 90 mcg/actuation Aerosol Inhaler RxNorm: 251869 2 Puff(s) INH Q4H 04/10/2013 No Stop Date Active prn fentanyl 100 mcg/hr transdermal patch RxNorm: 788376 1 Unit Dos e TD QD 04/03/2013 05/02/2013 Inactive Endocet 10 mg-325 mg tablet RxNorm: 0678480 1-2 Tablet(s) PO Q4H 05/02/2013 Inactive PRN PAIN Topamax 100 mg tablet RxNorm: 235586 1 Tablet(s) PO QHS 03/13/2013 Inactive Reglan 10 mg tablet RxNorm: 016340 1 Tablet(s) PO QID b efore meals and at bedtime 03/13/2013 04/09/2015 Inactive fluoxetine 20 mg capsule RxNorm: 398747 1 Capsule(s) PO QD 02/28/20 13 05/27/2013 Inactive Ventolin HFA 90 mcg/actuation Aerosol Inhaler RxNorm: 349826 2 Puff(s) INH Q4H 02/13/2013 No Stop Date Active prn fluoxetine 40 mg capsule RxNorm: 760053 1 Capsule(s) PO QD 01/31/20 13 07/24/2013 Inactive TAKE ONE CAPSULE BY MOUTH EV JANKI MORNING Soma 350 mg tablet RxNorm: 505790 1 Tablet(s) PO TID 01/20/201302/18 Inactive TAKE ONE TABLET BY MOUTH THREE TIMES A D AY Endocet 10 mg-325 mg tablet RxNorm: 3250003 1-2 Tablet(s) PO Q4H 02/06/2013 Inactive PRN PAIN MS Contin 200 mg tablet,extended release RxNorm: 552606 1 Table t(s) PO BID 01/18/2013 02/06/2013 Inactive Ventolin HFA 90 mcg/actuation Aerosol Inhaler RxNorm: 650326 2 Puff(s) INH Q4H 01/04/2013 No Stop Date Active prn Spiriva with HandiHaler 18 mcg & inhalation capsules RxNorm: 702145 1 Capsule(s) INH QD 12/29/2012 06/25/2013 Inactive INHALE CONTENTS OF 1 CAPSULE(S) WITH HANDIHALER ONCE DAILY Spiriva with HandiHaler 18 mcg & inhalation capsules RxNorm: 147392 1 Capsule(s) INH QD 12/26/2012 12/28/2012 Inactive INHALE CONTENTS OF 1 CAPSULE(S) WITH HANDIHALER ONCE DAILY Synthroid 112 mcg tablet RxNorm: 092392 Tablet(s) PO TA KE ONE TABLET BY MOUTH EVERY DAY 12/26/2012 04/09/2013 Inactive Endocet 10 mg-325 mg tablet RxNorm: 6071378 1-2 Tablet(s) PO Q4H 01/17/2013 Inactive PRN PAIN MS Contin 200 mg tablet,extended release RxNorm: 251916 1 Table t(s) PO BID 12/21/2012 01/17/2013 Inactive fluoxetine 20 mg capsule RxNorm: 086698 1 Capsule(s) PO QD 12/06/19 13 02/26/2013 Inactive Synthroid 112 mcg tablet RxNorm: 862938 1 Tablet(s) PO QD 12/06/2012 02/12/2019 Inactive TAKE ONE TABLET BY MOUTH EVERY DAY Ventolin HFA 90 mcg/actuation Aerosol Inhaler RxNorm: 489761 2 Puff(s) INH Q4H 12/06/2012 No Stop Date Active prn Reglan 10 mg tablet RxNorm: 190535 1 Tablet(s) PO QID b efore meals and at bedtime 11/24/2012 03/12/2013 Inactive Topamax 100 mg tablet RxNorm: 238659 1 Tablet(s) PO QHS 11/16/2012 Inactive Ventolin HFA 90 mcg/actuation Aerosol Inhaler RxNorm: 458207 2 Puff(s) INH Q4H 11/09/2012 No Stop Date Active prn gabapentin 800 mg tablet RxNorm: 678729 1 Tablet(s) PO QD 10/27/2012 04/09/2013 Inactive TAKE ONE TABLET BY MOUTH EVERY DAY metformin ER 500 mg tablet,extended release 24 hr RxNorm: 86 0977 1 Tablet(s) PO QD 10/27/2012 04/09/2013 Inactive TAKE ONE TABLET BY MOUTH EVERY DAY Symbicort 160 mcg-4.5 mcg/actuation HFA Aerosol Inhaler RxNo rm: 8081276 2 Puff(s) INH BID 10/27/2012 04/09/2013 Inactive INHALE 2 PUFFS O RALLY TWO TIMES A DAY Premarin 0.9 mg tablet RxNorm: 522945 1 Tablet(s) PO QD 10/27/2012 Inactive TAKE ONE TABLET BY MOUTH EVERY DAY Endocet 10 mg-325 mg tablet RxNorm: 8613773 1-2 Tablet(s) PO Q4H 11/24/2012 Inactive PRN PAIN MS Contin 200 mg tablet,extended release RxNorm: 875125 1 Table t(s) PO BID 10/26/2012 11/24/2012 Inactive Soma 350 mg tablet RxNorm: 087760 1 Tablet(s) PO TID 10/04/201211/02 Inactive TAKE ONE TABLET BY MOUTH THREE TIMES A D AY Ventolin HFA 90 mcg/actuation Aerosol Inhaler RxNorm: 464375 2 Puff(s) INH Q4H 10/03/2012 No Stop Date Active prn Daliresp 500 mcg tablet RxNorm: 3690646 1 Tablet(s) PO QD 09/28/2012 09/27/2012 Inactive Daliresp 500 mcg tablet RxNorm: 2671219 1 Tablet(s) PO QD 09/28/2012 04/25/2013 Inactive fluoxetine 20 mg capsule RxNorm: 917678 1 Capsule(s) PO QD 09/05/2012/06/2012 Inactive Topamax 50 mg tablet RxNorm: 941095 Tablet(s) PO for 1w k then 1 po q HS for 1wk then 2 po q HS 08/29/2012 09/27/2012 Inactive TAKE 1/2 TABLET BY MOUTH AT BEDTIME FOR 1 WEEK, THEN 1 TABLET AT BEDTIME FOR 1 WEEK, THEN 2 TABLETS AT BEDTIME Topamax 100 mg tablet RxNorm: 346126 1 Tablet(s) PO QHS 08/29/2012 Inactive Ventolin HFA 90 mcg/actuation Aerosol Inhaler RxNorm: 317486 2 Puff(s) INH Q4H 08/19/2012 No Stop Date Active prn Ventolin HFA 90 mcg/actuation Aerosol Inhaler RxNorm: 040533 2 Puff(s) INH Q4H 08/15/2012 No Stop Date Active prn Synthroid 112 mcg tablet RxNorm: 631704 1 Tablet(s) PO QD 08/10/2012 11/07/2012 Inactive TAKE ONE TABLET BY MOUTH EVERY DAY Synthroid 112 mcg tablet RxNorm: 358817 1 Tablet(s) PO QD 08/01/2012 08/09/2012 Inactive TAKE ONE TABLET BY MOUTH EVERY DAY Reglan 10 mg tablet RxNorm: 934847 1 Tablet(s) PO QID b efore meals and at bedtime 08/01/2012 11/23/2012 Inactive fluoxetine 40 mg capsule RxNorm: 277831 1 Capsule(s) PO QD 08/01/2001/27/2013 Inactive TAKE ONE CAPSULE BY MOUTH EV JANKI MORNING Ventolin HFA 90 mcg/actuation Aerosol Inhaler RxNorm: 634650 2 Puff(s) INH Q4H 08/01/2012 No Stop Date Active prn Soma 350 mg tablet RxNorm: 265109 1 Tablet(s) PO TID 07/20/201208/18 Inactive TAKE ONE TABLET BY MOUTH THREE TIMES A D AY Spiriva with HandiHaler 18 mcg & inhalation capsules RxNorm: 091784 1 Capsule(s) INH 07/01/2012 12/25/2012 Inactive INHALE CONTENTS OF 1 CAPSULE(S) WITH HANDIHALER ONCE DAILY Zithromax 250 mg Tab RxNorm: 364720 2 Tablet(s) PO QD 06/28/201206/22 Inactive MS Contin 200 mg tablet,extended release RxNorm: 173716 1 Table t(s) PO BID 06/28/2012 07/27/2012 Inactive Endocet 10 mg-325 mg tablet RxNorm: 0405931 1-2 Tablet(s) PO Q4H 07/27/2012 Inactive PRN PAIN Topamax 100 mg tablet RxNorm: 253909 1 Tablet(s) PO QHS 06/28/2012 Inactive 16.2 mg-0.1037 mg-0.0194 mg tablet RxNorm: 6698839 Tablet(s) PO PRN for gas and cramping 06/08/2012 08/23/2013 Inactive TAKE TWO TABLET S BY MOUTH THREE TIMES A DAY NEEDED FOR GAS AND CRAMPING Ventolin HFA 90 mcg/actuation Aerosol Inhaler RxNorm: 468879 2 Puff(s) INH Q4H 05/23/2012 No Stop Date Active prn Ventolin HFA 90 mcg/actuation Aerosol Inhaler RxNorm: 765271 2 Puff(s) INH Q4H 05/11/2012 No Stop Date Active prn Synthroid 112 mcg tablet RxNorm: 682329 1 Tablet(s) PO QD 05/09/2012 07/31/2012 Inactive TAKE ONE TABLET BY MOUTH EVERY DAY gabapentin 800 mg tablet RxNorm: 744017 1 Tablet(s) PO QD 05/09/2012 10/26/2012 Inactive TAKE ONE TABLET BY MOUTH EVERY DAY fluoxetine 40 mg capsule RxNorm: 223333 1 Capsule(s) PO QD 05/09/2007/31/2012 Inactive TAKE ONE CAPSULE BY MOUTH EV JANKI MORNING metformin ER 500 mg tablet,extended release 24 hr RxNorm: 86 0977 1 Tablet(s) PO QD 05/09/2012 10/26/2012 Inactive TAKE ONE TABLET BY MOUTH EVERY DAY Premarin 0.9 mg tablet RxNorm: 238498 1 Tablet(s) PO QD 05/09/2012 Inactive TAKE ONE TABLET BY MOUTH EVERY DAY Symbicort 160 mcg-4.5 mcg/actuation HFA Aerosol Inhaler RxNo rm: 2672064 2 Puff(s) INH BID 05/09/2012 10/26/2012 Inactive INHALE 2 PUFFS O RALLY TWO TIMES A DAY Endocet 10 mg-325 mg Tab RxNorm: 7539401 1-2 Tablet(s) PO Q4H 04/2705/26/2012 Inactive PRN PAIN MS Contin 200 mg Tab RxNorm: 269728 1 Tablet(s) PO BID 04/26/201202/2012 Inactive Ventolin HFA 90 mcg/actuation Aerosol Inhaler RxNorm: 491048 2 Puff(s) INH Q4H 04/25/2012 05/10/2012 Inactive prn Soma 350 mg tablet RxNorm: 679509 2 Tablet(s) PO TID 04/19/201207/19 Inactive TAKE ONE TABLET BY MOUTH THREE TIMES A D AY Ventolin HFA 90 mcg/actuation Aerosol Inhaler RxNorm: 361081 2 Puff(s) INH Q4H 04/12/2012 04/24/2012 Inactive prn Reglan 10 mg tablet RxNorm: 377607 1 Tablet(s) PO QID b efore meals and at bedtime 04/11/2012 07/31/2012 Inactive MS Contin 200 mg Tab RxNorm: 250181 1 Tablet(s) PO BID 03/30/201202/2012 Inactive Endocet 10 mg-325 mg Tab RxNorm: 4427626 1-2 Tablet(s) PO Q4H 03/3004/26/2012 Inactive PRN PAIN MS Contin 200 mg Tab RxNorm: 865285 1 Tablet(s) PO BID 03/02/201206/2012 Inactive Endocet 10 mg-325 mg Tab RxNorm: 6310838 1-2 Tablet(s) PO Q4H 03/0203/29/2012 Inactive PRN PAIN Daliresp 500 mcg tablet RxNorm: 0137003 1 Tablet(s) PO QD 03/01/2012 09/28/2012 Inactive MS Contin 200 mg Tab RxNorm: 918387 1 Tablet(s) PO BID 02/02/201208/2012 Inactive Endocet 10 mg-325 mg Tab RxNorm: 8992746 1-2 Tablet(s) PO Q4H 02/0103/01/2012 Inactive PRN PAIN fluoxetine 40 mg capsule RxNorm: 129699 1 Capsule(s) PO QD 02/02/2008/01/2012 Inactive TAKE ONE CAPSULE BY MOUTH EV JANKI MORNING Synthroid 112 mcg Tab RxNorm: 010119 1 Tablet(s) PO QD 01/18/2012 Inactive TAKE ONE TABLET BY MOUTH EVERY DAY lactulose 10 gram/15 mL oral solution RxNorm: 239181 [address]s) PO QD 01/18/2012 No Stop Date Active TAKE 1 TABLESPOON BY MOUTH ONCE DAILY Ventolin HFA 90 mcg/actuation Aerosol Inhaler RxNorm: 159648 2 Puff(s) INH Q4H 01/18/2012 04/11/2012 Inactive prn MS Contin 200 mg Tab RxNorm: 226921 1 Tablet(s) PO BID 01/05/201210/2012 Inactive Endocet 10 mg-325 mg Tab RxNorm: 5176372 1-2 Tablet(s) PO Q4H 01/0502/01/2012 Inactive PRN PAIN ProAir HFA 90 mcg/Actuation Aerosol Inhaler RxNorm: 404916 2 Pu ff(s) INH Q4H 12/21/2011 No Stop Date Active prn for wheezing or shortness of breath Spiriva with HandiHaler 18 mcg & inhalation Caps RxNorm: 580 261 1 Capsule(s) INH 12/21/2011 06/30/2012 Inactive INHALE CONTENTS OF 1 CAPSULE(S) WITH HANDIHALER ONCE DAILY Reglan 10 mg Tab RxNorm: 073477 1 Tablet(s) PO QID before meals and at bedtime 12/21/2011 04/10/2012 Inactive Synthroid 112 mcg Tab RxNorm: 637082 1 Tablet(s) PO QD 12/21/2011 Inactive TAKE ONE TABLET BY MOUTH EVERY DAY Endocet 10 mg-325 mg Tab RxNorm: 2140558 1-2 Tablet(s) PO Q4H 11/2512/24/2011 Inactive PRN PAIN MS Contin 200 mg Tab RxNorm: 994827 1 Tablet(s) PO BID 11/25/201112/2011 Inactive lactulose 10 gram/15 mL Oral Soln RxNorm: 835741 Milliliter(s) PO 1 No Stop Date Active TAKE 1 TABLESPOON BY MOUTH O NCE DAILY lactulose 10 gram/15 mL Oral Soln RxNorm: 588261 Milliliter(s) PO 1 12/12/2010 11/20/2011 Inactive TAKE 1 TABLESPOON BY MOUTH O NCE DAILY Premarin 0.9 mg Tab RxNorm: 212036 1 Tablet(s) PO QD 10/12/201105/08 Inactive TAKE ONE TABLET BY MOUTH EVERY DAY fluoxetine 20 mg capsule RxNorm: 581133 1 Capsule(s) PO QD 10/12/2009/05/2012 Inactive TAKE ONE CAPSULE BY MOUTH EV JANKI DAY Synthroid 112 mcg Tab RxNorm: 888853 1 Tablet(s) PO QD 10/12/2011 Inactive TAKE ONE TABLET BY MOUTH EVERY DAY metformin ER 500 mg 24 hr Tab RxNorm: 513335 1 Tablet(s) PO QD 09/2311/10/2011 Inactive TAKE ONE TABLET BY MOUTH GLYNN RY DAY Synthroid 112 mcg Tab RxNorm: 275291 1 Tablet(s) PO QD 10/12/2011 Inactive TAKE ONE TABLET BY MOUTH EVERY DAY metformin ER 500 mg 24 hr Tab RxNorm: 675626 1 Tablet(s) PO QD 09/2310/11/2011 Inactive TAKE ONE TABLET BY MOUTH GLYNN RY DAY Prevacid 30 mg Cap RxNorm: 426850 Capsule(s) PO 10/12/2011 01/25/2012 Inactive TAKE ONE CAPSULE BY MOUTH EVERY DAY Symbicort 160 mcg-4.5 mcg/actuation HFA Aerosol Inhaler RxNo rm: 7535817 2 Puff(s) INH BID 10/12/2011 05/08/2012 Inactive INHALE 2 PUFFS O RALLY TWO TIMES A DAY gabapentin 800 mg Tab RxNorm: 601519 1 Tablet(s) PO QD 10/12/2011 Inactive TAKE ONE TABLET BY MOUTH EVERY DAY MS Contin 200 mg Tab RxNorm: 019768 1 Tablet(s) PO BID 09/23/201111/2010 Inactive Endocet 10 mg-325 mg Tab RxNorm: 3904580 1-2 Tablet(s) PO Q4H 09/2310/22/2011 Inactive PRN PAIN Endocet 10 mg-325 mg Tab RxNorm: 6720903 1-2 Tablet(s) PO Q4H 08/2109/19/2011 Inactive PRN PAIN MS Contin 200 mg Tab RxNorm: 768667 1 Tablet(s) PO BID 08/21/2011 Inactive Diflucan 100 mg Tab RxNorm: 567743 1 Tablet(s) PO QD 08/10/201108/16 Inactive cefdinir 300 mg Cap RxNorm: 926904 2 Capsule(s) PO QD 08/10/201107/24 Inactive Reglan 10 mg Tab RxNorm: 075554 1 Tablet(s) PO AC & HS 07/15/2011 Inactive Endocet 10 mg-325 mg Tab RxNorm: 6213414 1-2 Tablet(s) PO Q4H 07/1508/13/2011 Inactive PRN PAIN One Touch Ultra Test strips RxNorm: Miscellaneous BID 06/11/2011 1 01/16/2014 Inactive TEST TWO TIMES A DAY lactulose 10 gram/15 mL Oral Soln RxNorm: 426024 Milliliter(s) PO 0 06/10/2011 10/11/2011 Inactive TAKE 1 TABLESPOON BY MOUTH O NCE DAILY Chantix Continuing Month Aníbal 1 mg Tab RxNorm: 412835 Tablet(s) PO 0 06/10/2011 11/02/2011 Inactive TAKE DIRECTED - PER [employer] GE INSTRUCTIONS fluoxetine 40 mg Cap RxNorm: 745791 Capsule(s) PO 06/10/2011 02/02/20 12 Inactive TAKE ONE CAPSULE BY MOUTH EVERY MORNING Chantix Continuing Month Aníbal 1 mg Tab RxNorm: 652417 Ta blet(s) PO TAKE DIRECTED - PER PACKAGE INSTRUCTIONS 05/13/2011 06/09/2011 Inactive Soma 350 mg Tab RxNorm: 275786 Tablet(s) PO TAKE ON E TABLET BY MOUTH THREE TIMES A DAY 05/13/2011 04/18/2012 Inactive Chantix Continuing Month Aníbal 1 mg Tab RxNorm: 353833 Ta blet(s) PO as directed per package instructions. 04/22/2011 05/12/2011 Inactive Symbicort 160 mcg-4.5 mcg/Actuation HFA Aerosol Inhaler RxNo rm: [id number] HFA Aerosol Inhaler INH INHALE 2 PUFFS ORALLY TWO TIMES A DAY 04/13/2011 Inactive Synthroid 112 mcg Tab RxNorm: 837583 Tablet(s) PO TAKE ONE TABLET BY MOUTH EVERY DAY 04/13/2011 10/12/2011 Inactive Premarin 0.9 mg Tab RxNorm: 092929 Tablet(s) PO TAKE ON E TABLET BY MOUTH EVERY DAY 04/13/2011 10/12/2011 Inactive gabapentin 800 mg Tab RxNorm: 104895 Tablet(s) PO TAKE ONE TABLET BY MOUTH EVERY DAY 04/13/2011 10/12/2011 Inactive Prevacid 30 mg Cap RxNorm: 342729 1 Capsule(s) PO QD 04/13/201110/11 Inactive Spiriva with HandiHaler 18 mcg & inhalation Caps RxNorm: 580 261 Capsule(s) INH INHALE CONTENTS OF 1 CAPSULE(S) WITH HANDIHALER ONCE DAILY 04/13/2011 12/21/2011 Inactive metformin ER 500 mg 24 hr Tab RxNorm: 394416 Tablet(s) PO TAKE ONE TABLET BY MOUTH EVERY DAY 04/13/2011 10/12/2011 Inactive Soma 350 mg Tab RxNorm: 694694 1 Tablet(s) PO QID 03/30/2011 02/13/20 19 Inactive fluoxetine 20 mg Cap RxNorm: 991550 Capsule(s) PO TAKE ONE CAPSULE BY MOUTH EVERY DAY 03/25/2011 10/12/2011 Inactive cefdinir 300 mg Cap RxNorm: 693581 2 Capsule(s) PO QD 03/19/201105/2011 Inactive 16.2 mg-0.1037 mg-0.0194 mg Tab RxNorm: 0799281 2 Tablet(s) PO TID PRN for gas and cramping 03/16/2011 07/13/2011 Inactive Soma 350 mg Tab RxNorm: 640946 2 Tablet(s) PO TID 03/16/2011 03/29/20 11 Inactive Chantix Starting Month Aníbal 0.5 mg (11)-1 mg (3x14) Tab s in a Dose Pack RxNorm: 415084 Tablet(s) PO as directed 03/02/2011 No Stop Date Active diazepam 10 mg Tab RxNorm: 785792 1 Tablet(s) PO BID 02/10/201101/19 Inactive Zofran 4 mg tablet RxNorm: 738502 1 Tablet(s) PO Q4H prn nausea 02/16/2011 Inactive Diflucan 100 mg Tab RxNorm: 753976 1 Tablet(s) PO QD 01/18/201101/24 Inactive Premarin 0.625 mg/g Vaginal Cream RxNorm: 874531 VAG In sert 1gm vaginally at bedtime 3 times weekly 01/18/2011 02/12/2019 Inactive loratadine 10 mg Tab RxNorm: 6935471 1 Tablet(s) PO QD 12/17/201003/2012 Inactive Spiriva with HandiHaler 18 mcg & inhalation Caps RxNorm: 580 261 1 Capsule(s) INH QD 12/17/2010 04/12/2011 Inactive Diflucan 100 mg Tab RxNorm: 078766 1 Tablet(s) PO QD 12/17/201012/23 Inactive diazepam 10 mg Tab RxNorm: 441437 1 Tablet(s) PO BID and PRN 201002/12/2019 Inactive One Touch Ultra Test Strips RxNorm: InVt BID Zainab t blood sugar at least twice daily. 11/11/2010 06/11/2011 Inactive fluoxetine 40 mg Cap RxNorm: 790066 1 Capsule(s) PO QAM 11/11/2010 Inactive diazepam 10 mg Tab RxNorm: 626895 1 Tablet(s) PO BID and PRN 200911/12/2010 Inactive Bactrim DS 800 mg-160 mg Tab RxNorm: 827077 1 Tablet(s) PO BID 09/2210/15/2010 Inactive fluoxetine 20 mg Cap RxNorm: 746512 1 Capsule(s) PO QD 10/02/201008/2011 Inactive Bactrim DS 800 mg-160 mg Tab RxNorm: 691982 1 Tablet(s) PO BID 01/201010/03/2010 Inactive Zofran 4 mg Tab RxNorm: 131012 1 Tablet(s) PO Q4H prn nausea 200910/16/2010 Inactive 16.2 mg-0.1037 mg-0.0194 mg Tab RxNorm: 1838399 2 Tablet(s) PO TID PRN for gas and cramping 09/17/2010 10/21/2010 Inactive Gabapentin 800 mg Tab RxNorm: 917688 1 Tablet(s) PO QD 09/16/2010 Inactive ProAir HFA 90 mcg/Actuation Aerosol Inhaler RxNorm: 871428 2 Puff(s) INH Q4H prn shortness of breath 09/15/2010 12/13/2010 Inactive gabapentin 800 mg Tab RxNorm: 046774 1 Tablet(s) PO QD 09/15/2010 Inactive Prevacid 30 mg Cap RxNorm: 608122 1 Capsule(s) PO QD 09/15/201004/12 Inactive loratadine 10 mg Tab RxNorm: 7192395 1 Tablet(s) PO QD 09/15/2010 Inactive Premarin 0.9 mg Tab RxNorm: 188649 1 Tablet(s) PO QD 09/15/201004/12 Inactive Synthroid 112 mcg Tab RxNorm: 078300 1 Tablet(s) PO QD 09/15/2010 Inactive metformin ER 500 mg 24 hr Tab RxNorm: 423926 1 Tablet(s) PO QD 08/2304/12/2011 Inactive Symbicort 160 mcg-4.5 mcg/Actuation Inhalation HFA Aer osol Inhaler RxNorm: 6206659 2 Puff(s) INH BID 09/15/2010 04/12/2011 Inactive diazepam 10 mg Tab RxNorm: 483955 1 Tablet(s) PO BID and PRN 200910/13/2010 Inactive Phentermine 37.5 mg Cap RxNorm: 729246 1 Capsule(s) PO QD 09/02/2010 11/02/2011 Inactive ProAir HFA 90 mcg/Actuation Aerosol Inhaler RxNorm: 132985 2 Puff(s) INH Q4H prn shortness of breath 08/07/2010 No Stop Date Active Premarin 0.9 mg Tab RxNorm: 494245 1 Tablet(s) PO QD 08/07/201009/14 Inactive Loratadine 10 mg Tab RxNorm: 1023028 1 Tablet(s) PO QD 08/07/2010 Inactive Lactulose 10 gram/15 mL Oral Soln RxNorm: 024662 1 Unit Dose PO QD 08/07/2010 02/12/2019 Inactive Zofran 4 mg Tab RxNorm: 055024 1 Tablet(s) PO Q4H prn nausea 2009 No Stop Date Active Gabapentin 800 mg Tab RxNorm: 347029 1 Tablet(s) PO QD 08/07/2010 Inactive Synthroid 112 mcg Tab RxNorm: 759115 1 Tablet(s) PO QD 08/07/2010 Inactive Metformin ER 500 mg 24 hr Tab RxNorm: 540178 1 Tablet(s) PO QD 07/2309/14/2010 Inactive Vitamin D 1,000 unit Tab RxNorm: 472156 1 Tablet(s) PO TID 08/07/20 10 02/12/2019 Inactive Symbicort 160 mcg-4.5 mcg/Actuation Inhalation HFA Aer osol Inhaler RxNorm: 9136416 2 Puff(s) INH BID 08/07/2010 09/14/2010 Inactive Prevacid 30 mg Cap RxNorm: 595196 1 Capsule(s) PO QD 08/07/201009/14 Inactive Metformin ER 500 mg 24 hr Tab RxNorm: 785008 1 Tablet(s) PO QD 06/2308/06/2010 Inactive Vitamin D 1,000 unit Tab RxNorm: 709979 1 Tablet(s) PO TID 07/14/2008/06/2010 Inactive Synthroid 112 mcg Tab RxNorm: 050609 1 Tablet(s) PO QD 07/14/2010 Inactive Lactulose 10 gram/15 mL Oral Soln RxNorm: 751250 1 Unit Dose PO QD 07/14/2010 08/06/2010 Inactive Levaquin 500 mg Tab RxNorm: 028390 1 Tablet(s) PO QD 07/14/201007/27 Inactive Premarin 0.9 mg Tab RxNorm: 049597 1 Tablet(s) PO QD 07/14/201008/06 Inactive ProAir HFA 90 mcg/Actuation Aerosol Inhaler RxNorm: 477909 2 Puff(s) INH Q4H prn shortness of breath 07/14/2010 No Stop Date Active Prevacid 30 mg Cap RxNorm: 396265 1 Capsule(s) PO QD 07/14/201008/06 Inactive Zofran 4 mg Tab RxNorm: 413929 1 Tablet(s) PO Q4H prn nausea 2009 No Stop Date Active Symbicort 160 mcg-4.5 mcg/Actuation Inhalation HFA Aer osol Inhaler RxNorm: 0297126 2 Puff(s) INH BID 07/14/2010 08/06/2010 Inactive Loratadine 10 mg Tab RxNorm: 9036114 1 Tablet(s) PO QD 07/14/2010 Inactive Gabapentin 800 mg Tab RxNorm: 082339 1 Tablet(s) PO QD 07/14/2010 Inactive Metformin ER 500 mg 24 hr Tab RxNorm: 050196 1 Tablet(s) PO 010 07/13/2010 Inactive Diazepam 10 mg Tab RxNorm: 003406 1 Tablet(s) PO BID and PRN 200909/06/2010 Inactive Premarin 0.9 mg Tab RxNorm: 161376 1 Tablet(s) PO QD 06/09/201007/13 Inactive Zofran 4 mg Tab RxNorm: 927747 1 Tablet(s) PO Q4H prn nausea 2009 No Stop Date Active ProAir HFA 90 mcg/Actuation Aerosol Inhaler RxNorm: 773902 2 Puff(s) INH Q4H prn shortness of breath 06/09/2010 No Stop Date Active Gabapentin 800 mg Tab RxNorm: 616685 1 Tablet(s) PO QD 06/09/2010 Inactive Loratadine 10 mg Tab RxNorm: 5967593 1 Tablet(s) PO QD 06/09/2010 Inactive Lactulose 10 gram/15 mL Oral Soln RxNorm: 377321 1 Unit Dose PO QD 06/09/2010 07/13/2010 Inactive Prevacid 30 mg Cap RxNorm: 551677 1 Capsule(s) PO QD 06/09/201007/13 Inactive Synthroid 112 mcg Tab RxNorm: 548182 1 Tablet(s) PO QD 06/09/2010 Inactive Symbicort 160 mcg-4.5 mcg/Actuation Inhalation HFA Aer osol Inhaler RxNorm: 2756328 2 Puff(s) INH BID 06/09/2010 07/13/2010 Inactive Omnicef 300 mg Cap RxNorm: 346039 2 Capsule(s) PO QD 05/07/201005/20 Inactive Metformin 500 mg Tab RxNorm: 984218 1 Tablet(s) PO QD 05/06/201005/22 Inactive ProAir HFA 90 mcg/Actuation Aerosol Inhaler RxNorm: 795601 2 Puff(s) INH Q4H prn shortness of breath 05/06/2010 No Stop Date Active lactulose 10 gram/15 mL Oral Soln RxNorm: 382008 1 Unit Dose PO QD 05/06/2010 06/10/2011 Inactive Loratadine 10 mg Tab RxNorm: 3784597 1 Tablet(s) PO QD 05/06/2010 Inactive Synthroid 112 mcg Tab RxNorm: 767336 1 Tablet(s) PO QD 05/06/2010 Inactive Symbicort 160 mcg-4.5 mcg/Actuation Inhalation HFA Aer osol Inhaler RxNorm: 0482992 2 Puff(s) INH BID 05/06/2010 06/08/2010 Inactive Gabapentin 800 mg Tab RxNorm: 402467 1 Tablet(s) PO QD 05/06/2010 Inactive 16.2 mg-0.1037 mg-0.0194 mg Tab RxNorm: 7004123 2 Tablet(s) PO TID PRN for gas and cramping 05/06/2010 05/12/2010 Inactive Zofran 4 mg Tab RxNorm: 651954 1 Tablet(s) PO Q4H prn nausea 200904/13/2010 Inactive MS Contin 60 mg tablet,extended release RxNorm: 695676 3 Tablet (s) PO BID 04/09/2010 05/08/2010 Inactive Soma 350 mg Tab RxNorm: 514076 2 Tablet(s) PO TID 04/09/2010 05/08/20 10 Inactive Symbicort 160 mcg-4.5 mcg/Actuation Inhalation HFA Aer osol Inhaler RxNorm: 0645354 2 Puff(s) INH BID 04/08/2010 05/05/2010 Inactive Doxycycline 100 mg Cap RxNorm: 2985122 1 Capsule(s) PO BID 04/08/20 10 04/17/2010 Inactive Triamterene-Hydrochlorothiazide 37.5 mg-25 mg Cap RxNorm: 19 8316 1 Capsule(s) PO QAM 04/08/2010 09/04/2010 Inactive fluoxetine 40 mg Cap RxNorm: 840383 1 Capsule(s) PO QAM 04/08/2010 Inactive Morphine SR 120 mg multiphase 24 hr Cap RxNorm: 838275 1 Capsul e(s) PO 03/11/2010 04/07/2010 Inactive Endocet 10 mg-325 mg Tab RxNorm: 0688552 1-2 Tablet(s) PO Q4H OK N PAIN 03/11/2010 04/09/2010 Inactive Savella 100 mg Tab RxNorm: 061148 1 Tablet(s) PO BID 03/10/201004/09 Inactive Soma 350 mg Tab RxNorm: 653279 1 Tablet(s) PO TID prn spasm 010 04/09/2010 Inactive Savella 100 mg Tab RxNorm: 485220 1 Tablet(s) PO BID 02/03/201004/09 Inactive Aspirin 81 mg Tab RxNorm: 797735 1 Tablet(s) PO QD No Start Date Active Zyrtec 10 mg Tab RxNorm: 0205358 1 Tablet(s) PO QD No Start Date Active One Touch Ultra Test Strips RxNorm: Misc test at least t wice daily. No Start Date Active coenzyme Q10 200 mg capsule RxNorm: 034567 1 Capsule(s) PO QD No Star t Date Active One Touch Ultra Test Strips RxNorm: InVt BID Zainab t blood sugar at least twice daily. No Start Date 11/10/2010 Inactive Gabapentin 800 mg Tab RxNorm: 694606 1 Tablet(s) PO QD No Start Date 05/05/2010 Inactive Abilify 5 mg tablet RxNorm: 151865 1 Tablet(s) PO QD No Start Date Inactive Chantix 1 mg Tab RxNorm: 786310 1 Tablet(s) PO BID No Start Date 10/22 Inactive Ozempic 0.25 mg or 0.5 mg (2 mg/1.5 mL) subcutaneous p en injector RxNorm: 2881927 .25 Milligram(s) SQ QW No Start Date 07/04/2019 Inactive lancets 28 gauge RxNorm: Miscellaneous As needed for blo od glucose sticks No Start Date 08/23/2013 Inactive potassium chloride ER 20 mEq tablet,extended release RxNorm: 624351 2 Tablet(s) PO QD No Start Date 09/26/2018 Inactive Ventolin HFA 90 mcg/actuation Aerosol Inhaler RxNorm: 928128 2 Puff(s) INH Q4H prn No Start Date 01/17/2012 Inactive potassium chloride ER 20 mEq tablet,extended release RxNorm: 490609 2 Tablet(s) PO QD No Start Date 10/19/2018 Inactive Januvia 100 mg tablet RxNorm: 631596 1 Tablet(s) PO QD No Start Date 09/10/2015 Inactive Medrol (Aníbal) 4 mg Tabs in a Dose Pack RxNorm: 275296 Tablet(s) PO N o Start Date 08/09/2011 Inactive as directed Zithromax Z-Aníbal 250 mg Tab RxNorm: 457002 Tablet(s) PO No Start Date 01/25/2012 Inactive as directed vitamin B6-vitamin E-magnesium tablet RxNorm: 1 Tablet(s ) PO QHS with INH No Start Date 03/30/2018 Inactive prednisone 20 mg Tab RxNorm: 399413 1 Tablet(s) PO TID for 1wk then 1 po BID for 1wk No Start Date 01/25/2012 Inactive furosemide 40 mg tablet RxNorm: 363478 1 Tablet(s) PO QAM No Start Date 10/09/2018 Inactive Vitamin D3 1000 units Capsule RxNorm: 1 Capsule(s) PO TID No S tart Date 03/19/2015 Inactive Zofran 4 mg Tab RxNorm: 039777 1 Tablet(s) PO Q4H prn nausea No Sta rt Date 04/13/2010 Inactive Premarin 0.625 mg/g Vaginal Cream RxNorm: 351190 1 Gram (s) VAG QHS 3 times a week No Start Date 09/22/2017 Inactive oxycodone 10 mg tablet RxNorm: 4066926 1-2 Tablet(s) PO QID as n eeded for pain No Start Date 11/04/2015 Inactive Nicoderm CQ 21 mg/24 hr daily Patch RxNorm: 755447 1 Applicatio n TD QD No Start Date 08/05/2015 Inactive Topamax 50 mg tablet RxNorm: 636980 1/2 Tablet(s) PO QH S for 1wk then 1 po q HS for 1wk then 2 po q HS No Start Date 06/27/2012 Inactive Chantix Starting Month Aníbal 0.5 mg (11)-1 mg (3x14) Tab s in a Dose Pack RxNorm: 899706 Tablet(s) PO as directed No Start Date 03/01/2011 Inactive Trulicity 0.75 mg/0.5 mL subcutaneous pen injector RxNorm: 1 206859 Milliliter(s) SQ No Start Date 07/04/2019 Inactive Medrol (Aníbal) 4 mg Tabs in a Dose Pack RxNorm: 298746 Tablet(s) PO N o Start Date 01/25/2012 Inactive as directed Duragesic 100 mcg/hr Transderm Patch RxNorm: 296173 2 A pplication TD Q48H for pain No Start Date 09/05/2013 Inactive Premarin 0.9 mg Tab RxNorm: 554887 1 Tablet(s) PO QD No Start Date Inactive Zithromax Z-Aníbal 250 mg Tab RxNorm: 363639 Tablet(s) PO as direc chinmay No Start Date 01/25/2012 Inactive ondansetron 8 mg disintegrating tablet RxNorm: 600601 1 Tablet(s) PO Q6H as needed No Start Date 10/10/2018 Inactive oxycodone 15 mg tablet RxNorm: 9203569 1 Tablet(s) PO QID as nee ded for pain No Start Date 03/05/2019 Inactive ProAir HFA 90 mcg/Actuation Aerosol Inhaler RxNorm: 790771 2 Puff(s) INH Q4H prn for wheezing or shortness of breath No Start Date 12/21/2011 Inactive pravastatin 40 mg tablet RxNorm: 959763 1/2 Tablet(s) PO QOD No Sta rt Date 04/09/2015 Inactive ipratropium-albuterol 0.5 mg-3 mg(2.5 mg base)/3 mL ne bulization soln RxNorm: 4269118 1 Unit Dose INH Q4H as needed No Start Date 09/09/2016 Inactive furosemide 40 mg tablet RxNorm: 255566 1 Tablet(s) PO QAM as ne eded No Start Date 09/24/2019 Inactive Vitamin D2 oral RxNorm: 4018 oral No Start Date 03/18/2015 Inacti ve pravastatin 40 mg tablet RxNorm: 495942 1/2 Tablet(s) PO QD No Star t Date 04/09/2015 Inactive ondansetron HCl 4 mg tablet RxNorm: 239940 1 Tablet(s) PO Q4H as needed for nausea and vomiting No Start Date 04/07/2016 Inactive furosemide 40 mg tablet RxNorm: 907000 2 Tablet(s) PO QAM No Start Date 09/26/2018 Inactive gabapentin 800 mg tablet RxNorm: 023712 1/2 Tablet(s) PO BID No Sta rt Date 06/21/2017 Inactive gabapentin 800 mg tablet RxNorm: 920615 1/2 Tablet(s) PO BID No Sta rt Date 07/05/2017 Inactive ProAir HFA 90 mcg/Actuation Aerosol Inhaler RxNorm: 552534 2 Puff(s) INH Q4H prn shortness of breath No Start Date 05/05/2010 Inactive scopolamine 1 mg over 3 days transdermal patch RxNorm: 12299 2 1 Application TD behind ear. Take off after three days No Start Date 10/10/2018 Inactive Metformin 500 mg Tab RxNorm: 212873 1 Tablet(s) PO QD No Start Date 0 05/05/2010 Inactive MS Contin 200 mg Tab RxNorm: 431867 1 Tablet(s) PO BID No Start Date 08/20/2011 Inactive Belladonna-Phenobarbital 48 mg tablet,extended release RxNor m: 2 Tablet(s) PO TID No Start Date 06/04/2016 Inactive Synthroid 112 mcg Tab RxNorm: 842004 1 Tablet(s) PO QD No Start Date 05/05/2010 Inactive Zegerid 40 mg-1.1 gram Cap RxNorm: 657590 1 Capsule(s) PO QD No Sta rt Date 01/25/2012 Inactive Premarin 0.625 mg/g Vaginal Cream RxNorm: 668865 VAG In sert 1gm vaginally at bedtime 3 times weekly No Start Date 01/17/2011 Inactive potassium chloride ER 20 mEq tablet,extended release RxNorm: 317628 1 Tablet(s) PO QD No Start Date 04/24/2019 Inactive methocarbamol 750 mg tablet RxNorm: 450102 2 Tablet(s) PO TID as needed for muscle spasm No Start Date 07/08/2014 Inactive Biaxin XL Aníbal 500 mg 24 hr Tab RxNorm: 754273 Tablet(s) PO as d irected No Start Date 04/24/2013 Inactive Vitamin D3 1,000 unit tablet RxNorm: 938942 3 Tablet(s) PO QD No St art Date 06/01/2017 Inactive Morphine SR 120 mg multiphase 24 hr Cap RxNorm: 732066 1 Capsul e(s) PO BID No Start Date 04/09/2010 Inactive Silvadene 1 % topical cream RxNorm: 498551 1 Application TOP BI D to burn area No Start Date 01/31/2017 Inactive Prednisone 20 mg Tab RxNorm: 123862 1 Tablet(s) PO TID for 3days then BID for 4days No Start Date 01/25/2012 Inactive gabapentin 600 mg tablet RxNorm: 235018 1 Tablet(s) PO BID No Start Date 01/21/2015 Inactive topiramate 50 mg tablet RxNorm: 187225 1 Tablet(s) PO QHS No Start Date 03/30/2018 Inactive Januvia 100 mg tablet RxNorm: 100032 1/2 Tablet(s) PO QD No Start D ate 12/25/2015 Inactive Diazepam 10 mg Tab RxNorm: 866340 1 Tablet(s) PO BID and PRN No Sta rt Date 06/08/2010 Inactive Medication Administered No Medication Administered data Immunizations Vaccine Codes Date Status Influenza CVX: 141 09/28/2012 Pneumovax Unknown 09/28/2012 Influenza (Adult) CVX: 141 09/02/2010 Results No Results data Procedures Procedure Codes Date THER/PROPH/DIAG INJ SC/IM CPT-4: 36254 07/10/2019 METHYLPREDNISOLONE INJECTION CPT-4: J2930 07/10/2019 URINALYSIS NONAUTO W/O SCOPE CPT-4: 87309 09/06/2018 URINE CULTURE/ COLONY COUNT CPT-4: 48065 09/06/2018 DRAIN/INJECT JOINT/BURSA CPT-4: 56332 04/29/2017 TRIAMCINOLONE ACET INJ NOS CPT-4: J3301 04/29/2017 DEXAMETHASONE SODIUM PHOS CPT-4: J1100 04/29/2017 INFLUENZA ASSAY W/OPTIC CPT-4: 55733 12/01/2016 RESPIRATORY CULTURE & STAIN CPT-4: 16424 07/09/2016 TB INTRADERMAL TEST CPT-4: 12177 04/21/2016 DRAIN/INJECT JOINT/BURSA CPT-4: 22031 11/07/2013 METHYLPREDNISOLONE 40 MG INJ CPT-4: J1030 11/07/2013 TRIAMCINOLONE ACET INJ NOS CPT-4: J3301 11/07/2013 DRAIN/INJECT JOINT/BURSA CPT-4: 70866 08/08/2013 METHYLPREDNISOLONE 40 MG INJ CPT-4: J1030 08/08/2013 TRIAMCINOLONE ACET INJ NOS CPT-4: J3301 08/08/2013 FLU VACCINE 3 YRS & > IM UP 64 CPT-4: 63921 2 PNEUMOCOCCAL VACC 23 ADITYA IM CPT-4: 47436 09/28/2012 IMMUNIZATION ADMIN CPT-4: 61389 09/28/2012 IMMUNIZATION ADMIN EACH ADD CPT-4: 47326 09/28/2012 FLU VACCINE 3 YRS & > IM UP 64 CPT-4: 28099 0 IMMUNIZATION ADMIN CPT-4: 75889 09/02/2010 METHYLPREDNISOLONE INJECTION CPT-4: J2930 05/07/2010 THER/PROPH/DIAG INJ SC/IM CPT-4: 40372 05/07/2010 Vital Signs Date Vital 11/29/2019 Blood [...] 1: 122/78 Code: 8480-6 BMI: 29.5 Code: 84498-7 Heart Rate 1: 76 bpm Height: 5'4" Respiratory Rate: 20 bpm SpO2: 96% Tempera ture: 37.0 (C) / 98.6 (F) Weight: 172 lbs 01/25/2019 Blood Pressure 1: 132/80 Code: 8480-6 BMI: 29.7 Code: 69572-5 Heart Rate 1: 84 bpm Height: 5'4" Respiratory Rate: 22 bpm SpO2: 98% Tempera ture: 36.9 (C) / 98.4 (F) Weight: 173 lbs 01/03/2019 Blood Pressure 1: 116/70 Code: 8480-6 BMI: 29.5 Code: 82813-6 Heart Rate 1: 92 bpm Height: 5'4" Respiratory Rate: 24 bpm SpO2: 98% Tempera ture: 37.2 (C) / 98.9 (F) Weight: 172 lbs 11/21/2018 Blood Pressure 1: 146/82 Code: 8480-6 BMI: 28.2 Code: 66178-7 Heart Rate 1: 88 bpm Height: 5'4" Respiratory Rate: 22 bpm SpO2: 97% Tempera ture: 36.9 (C) / 98.4 (F) Weight: 164 lbs 10/27/2018 Blood Pressure 1: 122/70 Code: 8480-6 BMI: 27.6 Code: 91707-4 Heart Rate 1: 88 bpm Height: 5'4" Respiratory Rate: 20 bpm SpO2: 96% Tempera ture: 36.8 (C) / 98.3 (F) Weight: 161 lbs 10/18/2018 Blood Pressure 1: 126/70 Code: 8480-6 BMI: 28.3 Code: 71895-2 Heart Rate 1: 76 bpm Height: 5'4" Respiratory Rate: 20 bpm SpO2: 95% Tempera ture: 37.0 (C) / 98.6 (F) Weight: 165 lbs 09/27/2018 Blood Pressure 1: 124/78 Code: 8480-6 BMI: 27.1 Code: 14883-3 Heart Rate 1: 88 bpm Height: 5'4" Respiratory Rate: 20 bpm SpO2: 98% Tempera ture: 36.4 (C) / 97.6 (F) Weight: 158 lbs 09/14/2018 Blood Pressure 1: 140/72 Code: 8480-6 BMI: 26.1 Code: 62365-9 Heart Rate 1: 100 bpm Height: 5'4" Respiratory Rate: 20 bpm SpO2: 97% Tempera ture: 36.9 (C) / 98.4 (F) Weight: 152 lbs 09/06/2018 Blood Pressure 1: 156/82 Code: 8480-6 BMI: 26.3 Code: 13670-8 Heart Rate 1: 100 bpm Height: 5'4" Respiratory Rate: 28 bpm SpO2: 95% Tempera ture: 37.2 (C) / 98.9 (F) Weight: 153 lbs 08/16/2018 Blood Pressure 1: 130/78 Code: 8480-6 Heart Rate 1: 87 bpm Respiratory Rate: 24 bpm SpO2: 94% Temperature: 36.9 (C) / 98.4 (F) We ight: 147 lbs 8 oz 07/07/2018 Blood Pressure 1: 116/78 Code: 8480-6 BMI: 22.7 Code: 89942-0 Heart Rate 1: 88 bpm Height: 5'4" Respiratory Rate: 22 bpm SpO2: 98% Tempera ture: 36.5 (C) / 97.7 (F) Weight: 132 lbs 05/31/2018 Blood Pressure 1: 128/78 Code: 8480-6 BMI: 22.3 Code: 39527-9 Heart Rate 1: 92 bpm Height: 5'4" Respiratory Rate: 26 bpm SpO2: 94% Tempera ture: 36.7 (C) / 98.1 (F) Weight: 130 lbs 03/31/2018 Blood Pressure 1: 136/78 Code: 8480-6 BMI: 21.5 Code: 33215-1 Heart Rate 1: 76 bpm Height: 5'4" Respiratory Rate: 24 bpm SpO2: 95% Tempera ture: 36.8 (C) / 98.3 (F) Weight: 125 lbs 01/26/2018 Blood Pressure 1: 142/64 Code: 8480-6 BMI: 20.6 Code: 74152-0 Heart Rate 1: 90 bpm Height: 5'4" Respiratory Rate: 24 bpm SpO2: 92% Tempera ture: 36.3 (C) / 97.3 (F) Weight: 120 lbs 10/26/2017 Blood Pressure 1: 124/70 Code: 8480-6 BMI: 20.3 Code: 01282-0 Heart Rate 1: 76 bpm Height: 5'4" Respiratory Rate: 22 bpm SpO2: 94% Tempera ture: 36.7 (C) / 98.1 (F) Weight: 118 lbs 09/23/2017 Blood Pressure 1: 106/70 Code: 8480-6 BMI: 19.2 Code: 67850-7 Heart Rate 1: 76 bpm Height: 5'4" Respiratory Rate: 20 bpm SpO2: 94% Tempera ture: 36.8 (C) / 98.3 (F) Weight: 112 lbs 08/12/2017 Blood Pressure 1: 116/68 Code: 8480-6 BMI: 20.1 Code: 66941-2 Heart Rate 1: 80 bpm Height: 5'4" Respiratory Rate: 22 bpm SpO2: 95% Tempera ture: 36.8 (C) / 98.2 (F) Weight: 117 lbs 07/06/2017 Blood Pressure 1: 136/78 Code: 8480-6 BMI: 20.6 Code: 96393-9 Heart Rate 1: 76 bpm Height: 5'4" Respiratory Rate: 24 bpm SpO2: 96% Tempera ture: 36.8 (C) / 98.2 (F) Weight: 120 lbs 06/02/2017 Blood Pressure 1: 112/70 Code: 8480-6 Heart Rate 1: 92 bpm Height: 5'4" Respiratory Rate: 24 bpm SpO2: 95% Temperature: 37.0 (C) / 98.6 (F) Weight: 04/29/2017 Blood Pressure 1: 94/52 Code: 8480-6 BMI: 19.6 C ode: 07773-0 Heart Rate 1: 84 bpm Height: 5'4" [...] 92/58 Code: 8480-6 BMI: 19.2 C ode: 92102-7 Heart Rate 1: 84 bpm Height: 5'4" Respiratory Rate: 26 bpm SpO2: 95% Tempera ture: 36.7 (C) / 98.0 (F) Weight: 112 lbs 12/01/2016 Blood Pressure 1: 114/70 Code: 8480-6 BMI: 19.2 Code: 93366-8 Heart Rate 1: 96 bpm Height: 5'4" Respiratory Rate: 28 bpm SpO2: 93% Tempera ture: 38.3 (C) / 101.0 (F) Weight: 112 lbs 10/27/2016 Blood Pressure 1: 126/66 Code: 8480-6 BMI: 19.6 Code: 99492-2 Heart Rate 1: 92 bpm Height: 5'4" Respiratory Rate: 28 bpm SpO2: 90% Tempera ture: 36.8 (C) / 98.3 (F) Weight: 114 lbs 09/09/2016 Blood Pressure 1: 126/74 Code: 8480-6 Heart Rate 1: 104 bpm Height: 5'4" Respiratory Rate: 32 bpm SpO2: 88% Temperature: 37 .2 (C) / 99.0 (F) 08/26/2016 Blood Pressure 1: 134/82 Code: 8480-6 BMI: 22.0 Code: 35176-5 Heart Rate 1: 84 bpm Height: 5'4" Respiratory Rate: 24 bpm SpO2: 94% Tempera ture: 36.8 (C) / 98.3 (F) Weight: 128 lbs 05/21/2016 Blood Pressure 1: 142/80 Code: 8480-6 BMI: 21.6 Code: 25511-8 Heart Rate 1: 104 bpm Height: 5'4" Respiratory Rate: 22 bpm SpO2: 93% Tempera ture: 36.0 (C) / 96.8 (F) Weight: 126 lbs 03/25/2016 Blood Pressure 1: 126/62 Code: 8480-6 Heart Rate 1: 88 bpm Respiratory Rate: 20 bpm SpO2: 92% Temperature: 36.8 (C) / 98.3 (F) We ight: 130 lbs 01/23/2016 Blood Pressure 1: 146/82 Code: 8480-6 BMI: 24.1 Code: 87074-4 Heart Rate 1: 92 bpm Height: 5'3" Respiratory Rate: 22 bpm Temperature: 37 .1 (C) / 98.8 (F) Weight: 136 lbs 12/26/2015 Blood Pressure 1: 142/78 Code: 8480-6 BMI: 24.6 Code: 80139-1 Heart Rate 1: 78 bpm Height: 5'3" Respiratory Rate: 20 bpm Temperature: 36 .7 (C) / 98.1 (F) Weight: 139 lbs 12/03/2015 Blood Pressure 1: 126/60 Code: 8480-6 BMI: 24.6 Code: 32333-5 Heart Rate 1: 100 bpm Height: 5'3" Respiratory Rate: 28 bpm Temperature: 37 .6 (C) / 99.6 (F) Weight: 139 lbs 09/10/2015 Blood Pressure 1: 124/64 Code: 8480-6 BMI: 23.7 Code: 54751-5 Heart Rate 1: 88 bpm Height: 5'3" Respiratory Rate: 24 bpm SpO2: 95% Tempera ture: 36.4 (C) / 97.6 (F) Weight: 134 lbs 08/06/2015 Blood Pressure 1: 114/76 Code: 8480-6 BMI: 23.2 Code: 05107-7 Heart Rate 1: 88 bpm Height: 5'3" Respiratory Rate: 22 bpm Temperature: 36 .6 (C) / 97.9 (F) Weight: 131 lbs 07/18/2015 Blood Pressure 1: 144/78 Code: 8480-6 BMI: 23.7 Code: 52417-1 Heart Rate 1: 84 bpm Height: 5'3" Respiratory Rate: 20 bpm Temperature: 37 .2 (C) / 99.0 (F) Weight: 134 lbs 04/10/2015 Blood Pressure 1: 110/64 Code: 8480-6 Heart Rate 1: 80 bpm Height: Respiratory Rate: 20 bpm Temperature: 37.1 (C) / 98.8 (F) Weight: 03/05/2015 Blood Pressure 1: 136/80 Code: 8480-6 BMI: 23.9 Code: 64080-0 Heart Rate 1: 76 bpm Height: 5'3" Respiratory Rate: 24 bpm Temperature: 37 .0 (C) / 98.6 (F) Weight: 135 lbs 01/30/2015 Blood Pressure 1: 142/80 Code: 8480-6 BMI: 23.0 Code: 39511-5 Heart Rate 1: 96 bpm Height: 5'3" Respiratory Rate: 22 bpm Temperature: 36 .2 (C) / 97.2 (F) Weight: 130 lbs 01/02/2015 Blood Pressure 1: 124/70 Code: 8480-6 BMI: 23.4 Code: 47157-0 Heart Rate 1: 84 bpm Height: 5'3" Respiratory Rate: 24 bpm SpO2: 95% Tempera ture: 36.9 (C) / 98.5 (F) Weight: 132 lbs 10/03/2014 Blood Pressure 1: 106/68 Code: 8480-6 BMI: 22.5 Code: 19759-6 Heart Rate 1: 88 bpm Height: 5'3" Respiratory Rate: 24 bpm Temperature: 37 .0 (C) / 98.6 (F) Weight: 127 lbs 08/27/2014 Blood Pressure 1: 124/68 Code: 8480-6 BMI: 21.1 Code: 33343-0 Heart Rate 1: 88 bpm Height: 5'3" [...] 1: 120/70 Code: 8480-6 BMI: 19.2 Code: 24879-2 Heart Rate 1: 70 bpm Height: 5'4" Respiratory Rate: 20 bpm Temperature: 36 .9 (C) / 98.4 (F) Weight: 112 lbs 06/28/2013 Blood Pressure 1: 102/68 Code: 8480-6 BMI: 19.6 Code: 23494-8 Heart Rate 1: 76 bpm Height: 5'4" Respiratory Rate: 20 bpm Temperature: 36 .8 (C) / 98.2 (F) Weight: 114 lbs 05/31/2013 Blood Pressure 1: 106/70 Code: 8480-6 BMI: 18.9 Code: 11879-5 Heart Rate 1: 100 bpm Height: 5'4" Respiratory Rate: 20 bpm Temperature: 36 .4 (C) / 97.6 (F) Weight: 110 lbs 05/03/2013 Blood Pressure 1: 126/70 Code: 8480-6 BMI: 19.1 Code: 68191-2 Heart Rate 1: 88 bpm Height: 5'4" Respiratory Rate: 20 bpm Temperature: 37 .1 (C) / 98.8 (F)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 Daliresp 500mg daily Hold Metformin 01/26/2012 Appointment: Vika Renteria WPtel: [address] [place] [phone] FOLLOW UP 01/26/2012 Patient Education: Patient Medication Summary Completed 01/26/2012 Visit Plan: Discussed methotrexate trial , but do to chronic bronchitis pt wants to hold Smoking cessation Check CMP, CBC, TSH, Free T4, Lipids. ESR, ds DNA, JOVANNY Check EGD 11/03/2011 Appointment: Vika Renteria WPtel: [address] [place], [place] [phone] [place] FOLLOW UP 11/03/2011 Patient Education: Patient Medication Summary Completed 11/03/2011 Appointment: Vika Renteria WPtel: [address] [place] [phone] 08/10/2011 Patient Education: Patient Medication Summary Completed 08/10/2011 Visit Plan: Supportive care. Rest, Fluid s, Tylenol/Motrin prn fever or bodyaches. Notify if worsening symptoms. Medrol Dose Pack Smoking Cessation and recommend get rid of cat Add Reglan for stomach 07/15/2011 Appointment: Vika Renteriatel: [address] [place] [address] ACUTE ILLNESS 07/15/2011 Patient Education: Patient Medication Summary Completed 07/15/2011 Appointment: Vika Renteria WPtel: [address] [place] [address] FOLLOW UP 04/02/2011 Visit Plan: SVN with Albuterol 0.083% Q4 hrs and Q2hrs prn. Cont smoking Cessation 03/19/2011 Appointment: Vika Renteria WPtel: [address] [place] [address] ACUTE ILLNESS 03/19/2011 Patient Education: Patient Medication Summary Completed 03/19/2011 Visit Plan: Repeat Biaxin XL Cont curren t meds Repeat Chantix 01/28/2011 Appointment: Vika Renteriatel: [address] [place], [place] [id number] FOLLOW UP 01/28/2011 Patient Education: Patient Medication Summary Completed 01/28/2011 Patient Education: Chantix Unbranded Comp leted 01/28/2011 Appointment: Vika Renteria WPtel: [address] [place] [address] FOLLOW UP 01/14/2011 Visit Plan: Finish abx Diflucan for vagi nitis Premarin vaginal cream Smoking cessation 12/17/2010 Appointment: Vika Renteria WPtel: [address] [place] [address] Hospital Follow Up 12/17/2010 Patient Education: Patient Medication Summary Completed 12/17/2010 Appointment: Vika Renteria WPtel: [address] [place] [phone] [place] FOLLOW UP 11/06/2010 Visit Plan: Start PT Use SVNs every 4hrs Smoking Cessation Change MS Contin to 200mg q 12hrs 2010 Appointment: Vika Renteria WPtel: [address] [place] [phone] [place] FOLLOW UP 2010 Patient Education: Patient Medication Summary Completed 2010 Visit Plan: Prednisone taper for pain an d lungs 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 Increase fluoxetine to 60mg QD for acute stress reaction 10/02/2010 Appointment: Vika Renteria WPtel: [address] [place] [address] FOLLOW UP 10/02/2010 Patient Education: Patient Medication Summary Completed 10/02/2010 Visit Plan: Check CT Head, Cervical, Tho racic, and Lumbar Spine Cont current meds Bactrim for left toe 09/24/2010 Appointment: Vika Renteria WPtel: [address] [place] [address] [place] CHECK UP 09/24/2010 Patient Education: Patient Medication Summary Completed 09/24/2010 Appointment: Vika Renteria WPtel: [address] [place] [phone] [place] FOLLOW UP 09/02/2010 Patient Education: Patient Medication Summary Completed 09/02/2010 Visit Plan: Return for 2nd epidural Obse rve right leg lesion Cont Symbicort and Spiriva 07/14/2010 Appointment: Vika Renteria WPtel: [address] [place] [phone] [place] FOLLOW UP 07/14/2010 Patient Education: Patient Medication Summary Completed 07/14/2010 Appointment: Vika Renteria WPtel: [address] [place] [phone] [place] FOLLOW UP 05/27/2010 [facility]ointment: [facility]el[facility] [phone] [id number] [place] FOLLOW UP 05/14/2010 Visit Plan: SVN with Albuterol 0.083% Q4 hrs and Q2hrs prn. Restart Spiriva Smoking Cessation 05/07/2010 Appointment: Vika Renteria WPtel: [phone] [id number] FOLLOW UP 05/07/2010 Patient Education: Patient Medication Summary Completed 05/07/2010 Appointment: Vika Renteria WPtel: [phone] [id number] ACUTE ILLNESS 04/08/2010 Patient Education: Patient Medication Summary Completed 04/08/2010 Referral: Kyle Billings WPtel: [address] [facility] [place] Referral Completed Referral: Jaylan Matute WPtel: [address] [facility] [address] [id number] [place] Referral Initiated Referral: Kyle Billings WPtel: [phone] [place] [address] [place] Referral Appointment Requested Instructions Comment . [...] prn breakthrough pain . Discussed that some [employer] produc ts are petroleum free If [...]
--- OUTSIDE RECORDS SUMMARY | 2020-04-24 21:57 | XMS REPORT | CCD ---
Author Author Yana Renteria D.O. Organization [facility] Address [address] [place] [address] Phone Care Team Providers Care Dental Aide Name Role Phone Vika Renteria D.O., PP Unavailable CCM Unavailable Summary Purpose Interface Exchange Insurance Providers Payer name Policy type / Coverage type Covered constitution party ID Effective Begin Date Effective End Date [employer] [facility] [place] Medicaid [id number] 2018 U nknown Family History Family History data not found Social History Social History Element Codes Description Effective Dates Marital status Unknown 06/28/[address]: 10042856 Currently smokes tobacco 05/2013 Allergies, Adverse Reactions, [...] Start Date Stop Date Status Fill Instructions cyclobenzaprine 10 mg tablet RxNorm: 944116 TAKE ONE TA BLET BY MOUTH THREE TIMES A DAY NEEDED 04/11/2020 No Stop Date Active potassium chloride ER 20 mEq tablet,extended release RxNorm: 614195 TAKE ONE TABLET BY MOUTH DAILY 04/11/2020 No Stop Date Active ProAir HFA 90 mcg/actuation aerosol inhaler RxNorm: 604255 INHALE ONE PUFF BY MOUTH EVERY 4 HOURS FOR WHEEZING OR FOR SHORTNESS OF BREATH 04/11/2020 No Stop Date Active Daliresp 500 mcg tablet RxNorm: 0431456 TAKE ONE TABLET BY MOUTH DAILY 04/11/2020 No Stop Date Active hydroxyzine HCl 50 mg tablet RxNorm: 392093 TAKE ONE TA BLET BY MOUTH TWICE A DAY WITH MORPHINE. *REPLACES BENADRYL* 04/11/2020 No Stop Date Active fluoxetine 20 mg capsule RxNorm: 918772 1 Capsule(s) Oral QD 201905/10/2020 Active fluoxetine 20 mg capsule RxNorm: 527658 1 Capsule(s) Oral QD 201904/09/2020 Inactive levothyroxine 25 mcg tablet RxNorm: 090649 TAKE ONE TAB LET BY MOUTH EVERY MORNING 04/09/2020 No Stop Date Active metformin 500 mg tablet RxNorm: 441508 1 Tablet(s) Oral QD 04/09/20 20 07/08/2020 Active MS Contin 200 mg tablet,extended release RxNorm: 005757 1 Tablet(s) Oral two times a day 03/19/2020 04/17/2020 Active Relistor 150 mg tablet RxNorm: 4712652 TAKE THREE TABLETS BY BENOIT TH DAILY 03/13/2020 No Stop Date Active furosemide 40 mg tablet RxNorm: 179787 TAKE ONE TABLET BY MOUTH EVERY MORNING 03/13/2020 No Stop Date Active cyclobenzaprine 10 mg tablet RxNorm: 032751 TAKE ONE TA BLET BY MOUTH THREE TIMES A DAY NEEDED 03/13/2020 04/10/2020 Inactive prednisone 1 mg tablet RxNorm: 519012 1 Tablet(s) Oral two times a day to take with hydroxyzine 03/12/2020 No Stop Date Active hydroxyzine HCl 50 mg tablet RxNorm: 311849 1 Tablet(s) Oral two times a day to take with morphine--replaces benadryl 03/12/2020 04/10/2020 Inactive prednisolone 5 mg tablet RxNorm: 198351 1 Tablet(s) Oral two ti mes a day 02/22/2020 03/23/2020 Inactive prednisolone 5 mg tablet RxNorm: 031450 1 Tablet(s) Oral two ti mes a day 02/22/2020 02/21/2020 Inactive Symbicort 160 mcg-4.5 mcg/actuation HFA aerosol inhaler RxNo rm: 8985750 INHALE TWO PUFFS BY MOUTH TWICE A DAY 02/19/2020 No Stop Date Active Daliresp 500 mcg tablet RxNorm: 1826371 TAKE ONE TABLET BY MOUTH DAILY 02/19/2020 No Stop Date Active prednisone 20 mg tablet RxNorm: 534037 1 Tablet(s) Oral two yumi es a day 02/13/2020 02/20/2020 Inactive oxycodone 30 mg tablet RxNorm: 1778402 1 Tablet(s) Oral four times a day replaces MS Contin 02/13/2020 02/22/2020 Inactive levothyroxine 25 mcg tablet RxNorm: 158542 TAKE ONE TAB LET BY MOUTH EVERY MORNING 02/09/2020 04/08/2020 Inactive MS Contin 200 mg tablet,extended release RxNorm: 596785 1 Tablet(s) Oral two times a day 02/01/2020 03/01/2020 Inactive Premarin 0.45 mg tablet RxNorm: 180390 TAKE ONE TABLET BY MOUTH DAILY 01/31/2020 No Stop Date Active cyclobenzaprine 10 mg tablet RxNorm: 011940 TAKE ONE TA BLET BY MOUTH THREE TIMES A DAY NEEDED 01/31/2020 03/12/2020 Inactive metformin 500 mg tablet RxNorm: 923596 1 Tablet(s) Oral QD 01/31/2004/08/2020 Inactive gabapentin 300 mg capsule RxNorm: 451836 TAKE ONE CAPSULE BY [facility] TWICE A DAY 01/16/2020 No Stop Date Active potassium chloride ER 20 mEq tablet,extended release RxNorm: 816544 TAKE ONE TABLET BY MOUTH DAILY 01/08/2020 07/05/2020 Active ProAir HFA 90 mcg/actuation aerosol inhaler RxNorm: 417147 INHALE ONE PUFF BY MOUTH EVERY 4 HOURS FOR WHEEZING OR FOR SHORTNESS OF BREATH 01/04/2020 04/10/2020 Inactive metformin 500 mg tablet RxNorm: 681922 1 Tablet(s) Oral QD 01/04/2004/09/2020 Inactive MS Contin 200 mg tablet,extended release RxNorm: 836596 1 Tablet(s) Oral two times a day 01/02/2020 01/31/2020 Inactive Pulmicort 1 mg/2 mL suspension for nebulization RxNorm: 6168 19 USE ONE VIAL VIA NEBULIZER BY MOUTH TWICE A DAY 12/21/2019 No Stop Date Active furosemide 40 mg tablet RxNorm: 972263 TAKE ONE TABLET BY MOUTH EVERY MORNING NEEDED 12/20/2019 03/12/2020 Inactive levothyroxine 25 mcg tablet RxNorm: 224352 TAKE ONE TAB LET BY MOUTH EVERY MORNING 12/20/2019 02/08/2020 Inactive MS Contin 200 mg tablet,extended release RxNorm: 081195 1 Tablet(s) Oral two times a day 12/05/2019 01/01/2020 Inactive Medrol (Aníbal) 4 mg tablets in a dose pack RxNorm: 791105 6 Tablet(s) Oral QD --then as directed 11/30/2019 12/05/2019 Inactive MS Contin 200 mg tablet,extended release RxNorm: 485692 1 Tablet(s) Oral two times a day 11/29/2019 12/04/2019 Inactive cyclobenzaprine 10 mg tablet RxNorm: 478108 TAKE ONE TA BLET BY MOUTH THREE TIMES A DAY NEEDED 11/21/2019 01/30/2020 Inactive MS Contin 200 mg tablet,extended release RxNorm: 218439 1 Tablet(s) Oral two times a day replaces 100mg dose 11/03/2019 11/02/2019 Inactive MS Contin 200 mg tablet,extended release RxNorm: 092086 1 Tablet(s) Oral two times a day replaces 100mg dose 11/03/2019 11/29/2019 Inactive ferrous sulfate 325 mg (65 mg iron) tablet RxNorm: 321982 1 Tab let(s) Oral QD 10/30/2019 No Stop Date Active MS Contin 100 mg tablet,extended release RxNorm: 939808 1 Table t(s) Oral QD 10/30/2019 10/29/2019 Inactive MS Contin 100 mg tablet,extended release RxNorm: 204834 1 Table t(s) Oral QD 10/30/2019 11/02/2019 Inactive pantoprazole 40 mg tablet,delayed release RxNorm: 340571 1 Tabl et(s) Oral QD 10/25/2019 No Stop Date Active Minipress 2 mg capsule RxNorm: 196789 1 Capsule(s) Oral QAM and 3 at bedtime 10/25/2019 No Stop Date Active Lancets, Super Thin RxNorm: 1 Unit Dose Miscellaneous QD 9 11/27/2020 Active Relistor 150 mg tablet RxNorm: 1066261 TAKE THREE TABLETS BY BENOIT TH DAILY 10/25/2019 03/12/2020 Inactive oxycodone 15 mg tablet RxNorm: 3587110 1 Tablet(s) Oral four times a day as needed for pain 10/25/2019 11/28/2019 Inactive metformin 500 mg tablet RxNorm: 908688 1 Tablet(s) Oral QD 10/25/20 19 01/03/2020 Inactive levothyroxine 25 mcg tablet RxNorm: 456398 1 Tablet(s) Oral QAM 02/201912/19/2019 Inactive levothyroxine 25 mcg tablet RxNorm: 548885 1 Tablet(s) Oral QAM 02/201910/24/2019 Inactive MS Contin 100 mg tablet,extended release RxNorm: 978110 1 Tablet(s) Oral two times a day replaces fentanyl 10/25/2019 10/25/2019 Inactive Cymbalta 60 mg capsule,delayed release RxNorm: 818190 1 Capsule (s) Oral QAM 10/25/2019 04/09/2020 Inactive Cymbalta 30 mg capsule,delayed release RxNorm: 314130 1 Capsule (s) Oral QAM 10/25/2019 04/09/2020 Inactive Premarin 0.45 mg tablet RxNorm: 758106 TAKE ONE TABLET BY MOUTH DAILY 10/24/2019 01/30/2020 Inactive Duragesic 100 mcg/hr transdermal patch RxNorm: 936751 2 Application TD Q48H for pain 10/18/2019 10/24/2019 Inactive gabapentin 300 mg capsule RxNorm: 882121 TAKE ONE CAPSULE BY MO UTH TWICE A DAY 10/16/2019 01/15/2020 Inactive cyclobenzaprine 10 mg tablet RxNorm: 131514 TAKE ONE TA BLET BY MOUTH THREE TIMES A DAY NEEDED 09/27/2019 11/20/2019 Inactive Relistor 150 mg tablet RxNorm: 6119066 TAKE THREE TABLETS BY BENOIT TH DAILY 09/25/2019 10/24/2019 Inactive ProAir HFA 90 mcg/actuation aerosol inhaler RxNorm: 212514 INHALE ONE PUFF BY MOUTH EVERY 4 HOURS FOR WHEEZING OR FOR SHORTNESS OF BREATH 09/25/2019 01/03/2020 Inactive furosemide 40 mg tablet RxNorm: 910437 1 Tablet(s) Oral QAM as needed 09/25/2019 09/25/2019 Inactive oxycodone 15 mg tablet RxNorm: 8679450 1 Tablet(s) PO QID as nee ded for pain 09/21/2019 10/24/2019 Inactive Duragesic 100 mcg/hr transdermal patch RxNorm: 527163 2 Application TD Q48H for pain 09/19/2019 10/17/2019 Inactive Daliresp 500 mcg tablet RxNorm: 4648843 1 Tablet(s) Oral QD 019 02/18/2020 Inactive Relistor 150 mg tablet RxNorm: 4260959 TAKE THREE TABLETS BY BENOIT TH DAILY 07/25/2019 07/30/2019 Inactive cyclobenzaprine 10 mg tablet RxNorm: 786732 TAKE ONE TA BLET BY MOUTH THREE TIMES A DAY NEEDED 07/25/2019 09/22/2019 Inactive potassium chloride ER 20 mEq tablet,extended release RxNorm: 053200 TAKE ONE TABLET BY MOUTH DAILY 07/25/2019 01/07/2020 Inactive fluoxetine 40 mg capsule RxNorm: 290829 TAKE ONE CAPSULE BY BENOIT TH EVERY MORNING 07/11/2019 10/24/2019 Inactive Medrol (Aníbal) 4 mg tablets in a dose pack RxNorm: 667634 6 Tablet(s) PO QD --then as directed 07/10/2019 07/15/2019 Inactive omeprazole 40 mg capsule,delayed release RxNorm: 293885 1 Capsule(s) PO QD for stomach TAKE ONE CAPSULE BY MOUTH DAILY 07/10/2019 10/24/2019 Inactive Augmentin 875 mg-125 mg tablet RxNorm: 485587 1 Tablet(s) PO BID 07/16/2019 Inactive Trulicity 0.75 mg/0.5 mL subcutaneous pen injector RxNorm: 1 841457 0.75 Milliliter(s) SQ weekly 07/05/2019 10/24/2019 Inactive Compazine 10 mg tablet RxNorm: 176206 TAKE ONE TABLET B Y MOUTH FOUR TIMES A DAY NEEDED FOR NAUSEA 06/20/2019 07/19/2019 Inactive ProAir HFA 90 mcg/actuation aerosol inhaler RxNorm: 979740 INHALE ONE PUFF BY MOUTH EVERY 4 HOURS FOR WHEEZING OR FOR SHORTNESS OF BREATH 06/20/2019 06/23/2019 Inactive Daliresp 500 mcg tablet RxNorm: 3502242 TAKE ONE TABLET BY MOUTH DAILY 06/12/2019 09/10/2019 Inactive puglhfmt-nymieixxt-jgzvgpesj 3.5 mg/mL-10,000 unit/mL- 1 % ear solution RxNorm: 801890 4 Drop(s) otic (ear) TID to left ear 06/05/2019 10/24/2019 Inac tive furosemide 40 mg tablet RxNorm: 174871 TAKE ONE TABLET BY MOUTH EVERY MORNING 05/26/2019 07/09/2019 Inactive Duragesic 100 mcg/hr transdermal patch RxNorm: 865592 2 Application TD Q48H for pain 05/16/2019 06/14/2019 Inactive oxycodone 15 mg tablet RxNorm: 9013309 1 Tablet(s) PO QID as nee ded for pain 05/10/2019 09/20/2019 Inactive doxycycline hyclate 100 mg capsule RxNorm: 8443907 1 Capsule(s) PO BID 05/03/2019 05/12/2019 Inactive prednisone 20 mg tablet RxNorm: 861796 1 Tablet(s) PO T ID for 3 days then 1 po BID for 3 days then one daily for 3 days 05/03/2019 07/11/2019 Inactiv e Ozempic 0.25 mg or 0.5 mg (2 mg/1.5 mL) subcutaneous p en injector RxNorm: 7433054 0.5 Milligram(s) SQ QW 05/03/2019 07/09/2019 Inactive fluconazole 100 mg tablet RxNorm: 089726 1 Tablet(s) PO QD 05/03/2005/07/2019 Inactive Premarin 0.45 mg tablet RxNorm: 875820 TAKE ONE TABLET BY MOUTH DAILY 05/03/2019 10/23/2019 Inactive potassium chloride ER 20 mEq tablet,extended release RxNorm: 156330 1 Tablet(s) PO QD 04/27/2019 07/25/2019 Inactive potassium chloride ER 20 mEq tablet,extended release RxNorm: 264704 1 Tablet(s) PO QD 04/25/2019 04/26/2019 Inactive Compazine 10 mg tablet RxNorm: 356430 1 Tablet(s) PO QID as nee ded for nausea 04/25/2019 05/04/2019 Inactive ProAir HFA 90 mcg/actuation aerosol inhaler RxNorm: 655514 INHALE ONE PUFF BY MOUTH EVERY 4 HOURS FOR WHEEZING OR FOR SHORTNESS OF BREATH 04/12/2019 06/10/2019 Inactive Medrol (Aníbal) 4 mg tablets in a dose pack RxNorm: 041960 6 Tablet(s) PO QD --then as directed 04/11/2019 04/16/2019 Inactive Symbicort 160 mcg-4.5 mcg/actuation HFA aerosol inhaler RxNo rm: 0536126 2 Puff(s) INH BID 04/10/2019 10/06/2019 Inactive levothyroxine 50 mcg tablet RxNorm: 769857 1 Tablet(s) PO QD 201810/24/2019 Inactive gabapentin 300 mg capsule RxNorm: 081437 1 Capsule(s) PO BID 201810/02/2019 Inactive Symbicort 160 mcg-4.5 mcg/actuation HFA aerosol inhaler RxNo rm: 9277229 2 Puff(s) INH BID 04/06/2019 04/09/2019 Inactive oxycodone 15 mg tablet RxNorm: 7070804 1 Tablet(s) PO QID as nee ded for pain 04/05/2019 05/09/2019 Inactive levothyroxine 50 mcg tablet RxNorm: 140763 1 Tablet(s) PO QD 201804/09/2019 Inactive furosemide 40 mg tablet RxNorm: 028648 TAKE ONE TABLET BY MOUTH EVERY MORNING 03/21/2019 04/19/2019 Inactive levothyroxine 50 mcg tablet RxNorm: 859758 TAKE ONE TABLET BY M OUTH DAILY 03/21/2019 03/27/2019 Inactive Duragesic 100 mcg/hr transdermal patch RxNorm: 568630 2 Application TD Q48H for pain 03/13/2019 04/11/2019 Inactive oxycodone 15 mg tablet RxNorm: 1086660 1 Tablet(s) PO QID as nee ded for pain 03/06/2019 04/04/2019 Inactive Relistor 150 mg tablet RxNorm: 4218282 3 Tablet(s) PO QD 02/28/2019 0 05/28/2019 Inactive cyclobenzaprine 10 mg tablet RxNorm: 939871 1 Tablet(s) PO TID as needed 02/28/2019 05/28/2019 Inactive phentermine 37.5 mg tablet RxNorm: 689881 1 Tablet(s) PO QAM 201803/15/2019 Inactive Duragesic 100 mcg/hr transdermal patch RxNorm: 193033 2 Application TD Q48H for pain 02/09/2019 03/10/2019 Inactive Daliresp 500 mcg tablet RxNorm: 3952952 TAKE ONE TABLET BY MOUTH DAILY 01/31/2019 05/30/2019 Inactive Premarin 0.45 mg tablet RxNorm: 690014 1 Tablet(s) PO QD 01/31/2019 0 04/30/2019 Inactive fluoxetine 40 mg capsule RxNorm: 964958 Capsule(s) TAKE ONE CAPSULE BY MOUTH EVERY MORNING 01/31/2019 04/30/2019 Inactive levothyroxine 50 mcg tablet RxNorm: 165086 1 Tablet(s) PO QD 201804/10/2019 Inactive follow up in 3 weeks levothyroxine 50 mcg tablet RxNorm: 269725 1 Tablet(s) PO QD 201801/25/2019 Inactive follow up in 3 weeks potassium chloride ER 20 mEq tablet,extended release RxNorm: 978794 2 Tablet(s) PO BID 01/23/2019 01/08/2020 Inactive Synthroid 50 mcg tablet RxNorm: 440258 TAKE ONE TABLET BY MOUTH DAILY 01/16/2019 10/24/2019 Inactive potassium chloride ER 20 mEq tablet,extended release RxNorm: 352737 2 Tablet(s) PO BID 01/04/2019 01/22/2019 Inactive ProAir HFA 90 mcg/actuation aerosol inhaler RxNorm: 279752 INHALE ONE PUFF BY MOUTH EVERY 4 HOURS FOR WHEEZING OR SHORTNESS OF BREATH 01/04/201902/20 Inactive Request already responded to by other me ans (e.g. phone or fax) ProAir HFA 90 mcg/actuation aerosol inhaler RxNorm: 0942801 INHALE ONE PUFF BY MOUTH EVERY 4 HOURS FOR WHEEZING OR SHORTNESS OF BREATH 01/02/201912/23 Inactive gabapentin 300 mg capsule RxNorm: 256774 TAKE ONE CAPSULE BY MO UTH TWICE A DAY 12/30/2018 04/06/2019 Inactive furosemide 40 mg tablet RxNorm: 580357 1 Tablet(s) PO QAM 12/26/2018 02/23/2019 Inactive Compazine 10 mg tablet RxNorm: 990792 1 Tablet(s) PO QID as nee ded for nausea 12/07/2018 12/16/2018 Inactive metolazone 2.5 mg tablet RxNorm: 793990 TAKE ONE TABLET BY MOUT H EVERY MORNING 12/05/2018 01/03/2019 Inactive metformin ER 500 mg tablet,extended release 24 hr RxNorm: 86 0975 TAKE ONE TABLET BY MOUTH DAILY 12/05/2018 01/31/2020 Inactive Synthroid 50 mcg tablet RxNorm: 643076 1 Tablet(s) PO QD 11/25/2018 0 01/03/2019 Inactive DC any other synthroid strengths. Should be 50mcg only cyclobenzaprine 10 mg tablet RxNorm: 669037 TAKE ONE TA BLET BY MOUTH THREE TIMES A DAY NEEDED 11/09/2018 02/06/2019 Inactive metolazone 2.5 mg tablet RxNorm: 900135 1 Tablet(s) PO QAM repl aces 5mg dose 11/02/2018 12/01/2018 Inactive potassium chloride ER 20 mEq tablet,extended release RxNorm: 131449 2 Tablet(s) PO QD 2018 01/02/2019 Inactive Compazine 10 mg tablet RxNorm: 939617 1 Tablet(s) PO QID as nee ded for nausea 10/18/2018 12/07/2018 Inactive furosemide 40 mg tablet RxNorm: 794425 1 Tablet(s) PO QAM 10/12/2018 12/10/2018 Inactive ondansetron 8 mg disintegrating tablet RxNorm: 049442 1 Tablet(s) PO Q6H as needed 10/11/2018 10/17/2018 Inactive scopolamine 1 mg over 3 days transdermal patch RxNorm: 52099 2 1 Application TD behind ear. Take off after three days 10/11/2018 01/02/2019 Inactive furosemide 40 mg tablet RxNorm: 699767 1 Tablet(s) PO QAM 10/10/2018 12/26/2018 Inactive metolazone 5 mg tablet RxNorm: 985209 1 Tablet(s) PO QAM 10/06/2018 1 01/03/2018 Inactive metolazone 5 mg tablet RxNorm: 380121 1 Tablet(s) PO QAM 10/06/2018 1 12/05/2017 Inactive Xtampza ER 36 mg capsule sprinkle RxNorm: 0478158 1 Capsule(s) P O BID 10/05/2018 01/02/2019 Inactive Xtampza ER 36 mg capsule sprinkle RxNorm: 5514273 1 Capsule(s) P O BID 10/05/2018 02/12/2019 Inactive omeprazole 40 mg capsule,delayed release RxNorm: 877611 TAKE ONE CAPSULE BY MOUTH DAILY 10/03/2018 12/31/2018 Inactive Duragesic 100 mcg/hr transdermal patch RxNorm: 702024 2 Application TD Q48H for pain 09/30/2018 10/29/2018 Inactive Synthroid 50 mcg tablet RxNorm: 806141 1 Tablet(s) PO QD 09/29/2018 0 11/25/2018 Inactive DC any other synthroid strengths. Should be 50mcg only Synthroid 50 mcg tablet RxNorm: 835868 1 Tablet(s) PO QD 09/29/2018 1 11/28/2017 Inactive furosemide 40 mg tablet RxNorm: 199830 2 Tablet(s) PO Q AM for 1 week then every other day for 2 weeks 09/27/2018 10/12/2018 Inactive fluoxetine 40 mg capsule RxNorm: 903555 2 Capsule(s) PO QD 09/27/20 18 10/17/2018 Inactive potassium chloride ER 20 mEq tablet,extended release RxNorm: 247544 2 Tablet(s) PO QD for 1 week then every other day for 2 weeks 09/27/2018 2018 Inactive ProAir HFA 90 mcg/actuation aerosol inhaler RxNorm: 4037815 INHALE ONE PUFF BY MOUTH EVERY 4 HOURS FOR WHEEZING OR SHORTNESS OF BREATH 09/26/201811/23 Inactive Synthroid 75 mcg tablet RxNorm: 289169 1 Tablet(s) PO QD 09/09/2018 1 Inactive Synthroid 75 mcg tablet RxNorm: 467428 1 Tablet(s) PO QD 09/09/2018 1 11/28/2017 Inactive furosemide 40 mg tablet RxNorm: 514906 1 Tablet(s) PO QD 09/06/2018 1 Inactive potassium chloride ER 20 mEq tablet,extended release RxNorm: 129114 1 Tablet(s) PO QD 09/06/2018 09/19/2018 Inactive Duragesic 100 mcg/hr transdermal patch RxNorm: 357038 2 Application TD Q48H for pain 08/30/2018 09/28/2018 Inactive gabapentin 300 mg capsule RxNorm: 291522 TAKE ONE CAPSULE BY [facility] TWICE A DAY 08/23/2018 12/20/2018 Inactive Daliresp 500 mcg tablet RxNorm: 9982228 TAKE ONE TABLET BY MOUTH DAILY 08/23/2018 01/19/2019 Inactive Pulmicort 1 mg/2 mL suspension for nebulization RxNorm: 6168 19 USE ONE VIAL VIA NEBULIZER BY MOUTH TWICE A DAY 08/23/2018 07/11/2019 Inactive Synthroid 88 mcg tablet RxNorm: 054223 1 Tablet(s) PO QD 08/19/2018 Inactive Medrol (Aníbal) 4 mg tablets in a dose pack RxNorm: 101063 Tablet(s) PO take as directed 08/16/2018 09/05/2018 Inactive Relistor 150 mg tablet RxNorm: 7465843 3 Tablet(s) PO QD 08/16/2018 1 Inactive Zithromax Z-Aníbal 250 mg tablet RxNorm: 919265 Tablet(s) PO take as directed 08/16/2018 09/05/2018 Inactive cyclobenzaprine 10 mg tablet RxNorm: 881873 1 Tablet(s) PO TID as needed 08/16/2018 11/08/2018 Inactive Synthroid 88 mcg tablet RxNorm: 271433 1 Tablet(s) PO Q D NEEDS UPDATED LABS BEFORE FURTHER REFILLS 08/08/2018 08/19/2018 Inactive Premarin 0.45 mg tablet RxNorm: 153590 1 Tablet(s) PO QD 08/03/2018 0 01/31/2019 Inactive fluoxetine 20 mg capsule RxNorm: 764070 TAKE ONE CAPSULE BY BENOIT TH DAILY 08/03/2018 09/26/2018 Inactive Xtampza ER 36 mg capsule sprinkle RxNorm: 7834249 1 Capsule(s) P O BID 08/03/2018 09/01/2018 Inactive metformin ER 500 mg tablet,extended release 24 hr RxNorm: 86 0975 1 Tablet(s) PO QD 08/03/2018 10/31/2018 Inactive Symbicort 160 mcg-4.5 mcg/actuation HFA aerosol inhaler RxNo rm: 6843626 2 Puff(s) INH BID 08/03/2018 01/29/2019 Inactive Duragesic 100 mcg/hr transdermal patch RxNorm: 873724 2 Application TD Q48H for pain 07/29/2018 08/27/2018 Inactive ProAir HFA 90 mcg/actuation aerosol inhaler RxNorm: 345048 INHALE TWO PUFFS BY MOUTH EVERY 4 HOURS FOR WHEEZING OR SHORTNESS OF BREATH 07/27/201802/2018 Inactive Relistor 150 mg tablet RxNorm: 0451340 3 Tablet(s) PO QD 07/20/2018 0 08/15/2018 Inactive metformin ER 500 mg tablet,extended release 24 hr RxNorm: 86 0975 TAKE ONE TABLET BY MOUTH DAILY 07/08/2018 08/02/2018 Inactive fluoxetine 40 mg capsule RxNorm: 297507 TAKE ONE CAPSULE BY BENOIT TH EVERY MORNING 07/08/2018 10/05/2018 Inactive Xtampza ER 18 mg capsule sprinkle RxNorm: 3103455 1 Capsule(s) P O BID 07/08/2018 08/02/2018 Inactive Relistor 150 mg tablet RxNorm: 9469931 3 Tablet(s) PO QD 07/08/2018 0 07/12/2018 Inactive Synthroid 88 mcg tablet RxNorm: 724470 1 Tablet(s) PO Q D NEEDS UPDATED LABS BEFORE FURTHER REFILLS 06/23/2018 07/07/2018 Inactive fluoxetine 40 mg capsule RxNorm: 311293 TAKE ONE CAPSULE BY BENOIT EVERY MORNING 06/15/2018 09/26/2018 Inactive orphenadrine citrate ER 100 mg tablet,extended release RxNor m: 271003 TAKE ONE TABLET BY MOUTH TWICE A DAY FOR MUSCLE SPASM 06/15/2018 08/15/2018 Medora ctive Duragesic 100 mcg/hr transdermal patch RxNorm: 904989 2 Application TD Q48H for pain 05/30/2018 06/28/2018 Inactive ProAir HFA 90 mcg/actuation aerosol inhaler RxNorm: 652015 INHALE TWO PUFFS BY MOUTH EVERY 4 HOURS FOR WHEEZING OR SHORTNESS OF BREATH 05/19/201803/2018 Inactive Chantix Continuing Month Box 1 mg tablet RxNorm: 600994 TAKE ONE TABLET BY MOUTH TWICE A DAY 05/19/2018 08/15/2018 Inactive oxycodone 10 mg tablet RxNorm: 0922284 1-2 Tablet(s) PO QID as n eeded for pain 05/19/2018 07/07/2018 Inactive gabapentin 300 mg capsule RxNorm: 006370 TAKE ONE CAPSULE BY [facility] TWICE A DAY 05/18/2018 07/16/2018 Inactive ProAir HFA 90 mcg/actuation aerosol inhaler RxNorm: 151107 INHALE TWO PUFFS BY MOUTH EVERY 4 HOURS FOR WHEEZING OR SHORTNESS OF BREATH 05/04/201804/23 Inactive Augmentin 500 mg-125 mg tablet RxNorm: 080397 1 Tablet(s) PO BID 05/03/2018 Inactive oxycodone 10 mg tablet RxNorm: 7521694 1-2 Tablet(s) PO QID as n eeded for pain 04/21/2018 05/18/2018 Inactive Synthroid 88 mcg tablet RxNorm: 489599 1 Tablet(s) PO QD 04/15/2018 0 08/08/2018 Inactive Symbicort 160 mcg-4.5 mcg/actuation HFA aerosol inhaler RxNo rm: 6792844 2 Puff(s) INH BID 04/15/2018 04/10/2019 Inactive Premarin 0.45 mg tablet RxNorm: 445690 1 Tablet(s) PO QD 04/15/2018 0 08/03/2018 Inactive ProAir HFA 90 mcg/actuation aerosol inhaler RxNorm: 865962 2 Puff(s) INH Q4H prn for wheezing or shortness of breath 04/15/2018 05/03/2018 Inactive metformin ER 500 mg tablet,extended release 24 hr RxNorm: 86 0975 1 Tablet(s) PO QD 04/11/2018 07/07/2018 Inactive omeprazole 40 mg capsule,delayed release RxNorm: 139120 TAKE ONE CAPSULE BY MOUTH DAILY 04/10/2018 06/08/2018 Inactive Synthroid 88 mcg tablet RxNorm: 899234 1 Tablet(s) PO QD 04/04/2018 0 04/14/2018 Inactive Synthroid 88 mcg tablet RxNorm: 055146 1 Tablet(s) PO QD 04/04/2018 0 04/03/2018 Inactive orphenadrine citrate ER 100 mg tablet,extended release RxNor m: 287247 1 Tablet(s) PO BID for muscle spasm 04/04/2018 05/03/2018 Inactive metformin ER 500 mg tablet,extended release 24 hr RxNorm: 86 0975 1 Tablet(s) PO QD NEEDS UPDATED LABS 03/31/2018 04/11/2018 Inactive doxycycline hyclate 100 mg capsule RxNorm: 0585199 1 Capsule(s) PO BID 03/31/2018 04/09/2018 Inactive prednisone 20 mg tablet RxNorm: 673081 3 Tablet(s) PO T ID for 3 days then 1 po BID for 3 days then one daily for 3 days 03/31/2018 07/06/2018 Inactiv e Chantix Continuing Month Box 1 mg tablet RxNorm: 437055 TAKE ONE TABLET BY MOUTH TWICE A DAY 03/25/2018 03/30/2018 Inactive oxycodone 10 mg tablet RxNorm: 1918512 1-2 Tablet(s) PO QID as n eeded for pain 03/21/2018 04/20/2018 Inactive Daliresp 500 mcg tablet RxNorm: 0238409 1 Tablet(s) PO QD 03/15/2018 08/22/2018 Inactive metformin ER 500 mg tablet,extended release 24 hr RxNorm: 86 0975 1 Tablet(s) PO QD NEEDS UPDATED LABS 03/14/2018 03/31/2018 Inactive nystatin 100,000 unit/mL oral suspension RxNorm: 532146 5 Chio liter(s) PO QID 03/02/2018 03/15/2018 Inactive nystatin 100,000 unit/mL oral suspension RxNorm: 988071 5 Chio liter(s) PO QID 03/02/2018 03/01/2018 Inactive oxycodone 10 mg tablet RxNorm: 8914416 1-2 Tablet(s) PO QID as n eeded for pain 02/16/2018 03/20/2018 Inactive fluoxetine 20 mg capsule RxNorm: 338100 1 Capsule(s) PO QD 02/15/20 18 08/02/2018 Inactive metformin ER 500 mg tablet,extended release 24 hr RxNorm: 86 0975 1 Tablet(s) PO QD Needs updated labs 02/14/2018 03/14/2018 Inactive cefdinir 300 mg capsule RxNorm: 966161 1 Capsule(s) PO BID 01/27/20 18 02/04/2018 Inactive orphenadrine citrate ER 100 mg tablet,extended release RxNor m: 424179 1 Tablet(s) PO BID for muscle spasm 01/26/2018 04/04/2018 Inactive gabapentin 300 mg capsule RxNorm: 580890 1 Capsule(s) PO BID 201704/17/2018 Inactive oxycodone 10 mg tablet RxNorm: 3711107 1-2 Tablet(s) PO QID as n eeded for pain 01/17/2018 02/15/2018 Inactive Duragesic 100 mcg/hr transdermal patch RxNorm: 957000 2 Application TD Q48H for pain 01/17/2018 02/15/2018 Inactive gabapentin 300 mg capsule RxNorm: 200521 TAKE ONE CAPSULE BY MO UTH TWICE A DAY 12/20/2017 01/18/2018 Inactive fluoxetine 40 mg capsule RxNorm: 480717 TAKE ONE CAPSULE BY BENOIT TH EVERY MORNING 12/15/2017 03/14/2018 Inactive DatamarsTouch Ultra Test strips RxNorm: TEST DAILY 11/04/2017 02/01/2018 Inactive gabapentin 300 mg capsule RxNorm: 461633 1 Capsule(s) P O TID replaces BID dosing 10/26/2017 02/22/2018 Inactive oxycodone 10 mg tablet RxNorm: 1625268 1-2 Tablet(s) PO QID as n eeded for pain 10/18/2017 01/16/2018 Inactive Duragesic 100 mcg/hr transdermal patch RxNorm: 278926 2 Application TD Q48H for pain 10/18/2017 11/16/2017 Inactive gabapentin 300 mg capsule RxNorm: 364517 1 Capsule(s) PO BID 201610/25/2017 Inactive Abilify 5 mg tablet RxNorm: 798456 1 Tablet(s) PO QAM 09/23/201702/2017 Inactive gabapentin 300 mg capsule RxNorm: 898764 1 Capsule(s) PO BID 201610/17/2017 Inactive oxycodone 10 mg tablet RxNorm: 7650963 1-2 Tablet(s) PO QID as n eeded for pain 09/15/2017 10/17/2017 Inactive Duragesic 100 mcg/hr transdermal patch RxNorm: 348191 2 Application TD Q48H for pain 09/15/2017 10/14/2017 Inactive Duragesic 100 mcg/hr transdermal patch RxNorm: 838405 2 Application TD Q48H for pain 09/15/2017 10/24/2019 Inactive oxycodone 10 mg tablet RxNorm: 3548893 1-2 Tablet(s) PO QID as n eeded for pain 09/15/2017 08/15/2018 Inactive Daliresp 500 mcg tablet RxNorm: 9016257 1 Tablet(s) PO QD 09/06/2017 03/15/2018 Inactive Ventolin HFA 90 mcg/actuation aerosol inhaler RxNorm: 194909 2 Puff(s) INH Q4H as needed 09/02/2017 05/19/2018 Inactive oxycodone 10 mg tablet RxNorm: 5684087 1-2 Tablet(s) PO QID as n eeded for pain 08/17/2017 09/14/2017 Inactive Duragesic 100 mcg/hr transdermal patch RxNorm: 255622 2 Application TD Q48H for pain 08/17/2017 09/14/2017 Inactive fluoxetine 40 mg capsule RxNorm: 122913 Capsule(s) TAKE ONE CAPSULE BY MOUTH EVERY MORNING 08/17/2017 12/14/2017 Inactive Pulmicort 1 mg/2 mL suspension for nebulization RxNorm: 6168 19 1 Unit Dose INH BID Dx: COPD (J44.9) 08/16/2017 08/22/2018 Inactive gabapentin 300 mg capsule RxNorm: 881069 1 Capsule(s) PO QHS 201610/18/2017 Inactive fluoxetine 20 mg capsule RxNorm: 207201 1 Capsule(s) PO QD 08/12/20 17 02/14/2018 Inactive Abilify 2 mg tablet RxNorm: 796496 1 Tablet(s) PO QD TA KE ONE TABLET BY MOUTH DAILY 08/12/2017 10/25/2017 Inactive metformin ER 500 mg tablet,extended release 24 hr RxNorm: 86 0975 1 Tablet(s) PO QD 08/10/2017 02/14/2018 Inactive Synthroid 112 mcg tablet RxNorm: 940929 1 Tablet(s) PO QD 08/10/2017 04/15/2018 Inactive oxycodone 10 mg tablet RxNorm: 3263534 1-2 Tablet(s) PO QID as n eeded for pain 07/19/2017 08/16/2017 Inactive Duragesic 100 mcg/hr transdermal patch RxNorm: 995249 2 Application TD Q48H for pain 07/19/2017 08/16/2017 Inactive Ventolin HFA 90 mcg/actuation aerosol inhaler RxNorm: 504248 2 Puff(s) INH Q4H as needed 07/12/2017 09/02/2017 Inactive Abilify 2 mg tablet RxNorm: 217095 1 Tablet(s) PO QD TA KE ONE TABLET BY MOUTH DAILY 07/06/2017 08/11/2017 Inactive gabapentin 800 mg tablet RxNorm: 217388 1 Tablet(s) PO TID 06/22/2007/05/2017 Inactive Chantix Starting Month Box 0.5 mg (11)-1 mg (42) table ts in dose pack RxNorm: 666969 TAKE BY MOUTH INSTRUCTED - PER PACKAGE INSTRUCTIONS 06/0707/04/2017 Inactive Ventolin HFA 90 mcg/actuation aerosol inhaler RxNorm: 720412 2 Puff(s) INH Q4H as needed 05/26/2017 07/12/2017 Inactive Duragesic 100 mcg/hr transdermal patch RxNorm: 737256 2 Application TD Q48H for pain 05/19/2017 06/17/2017 Inactive oxycodone 10 mg tablet RxNorm: 5895736 1-2 Tablet(s) PO QID as n eeded for pain 05/19/2017 07/18/2017 Inactive Abilify 2 mg tablet RxNorm: 621864 TAKE ONE TABLET BY MOUTH DAILY 0 05/10/2017 07/05/2017 Inactive Synthroid 112 mcg tablet RxNorm: 470577 1 Tablet(s) PO QD 05/06/2017 08/10/2017 Inactive metformin ER 500 mg tablet,extended release 24 hr RxNorm: 86 0975 1 Tablet(s) PO QD 05/06/2017 08/10/2017 Inactive Topamax 100 mg tablet RxNorm: 043181 1 Tablet(s) PO QHS 05/06/2017 Inactive Premarin 0.45 mg tablet RxNorm: 012427 1 Tablet(s) PO QD 05/06/2017 0 04/15/2018 Inactive orphenadrine citrate ER 100 mg tablet,extended release RxNor m: 324208 1 Tablet(s) PO TID for muscle spasm--replaces methocarbamol 04/29/2017 Inactive oxycodone 10 mg tablet RxNorm: 3172765 1-2 Tablet(s) PO QID as n eeded for pain 04/21/2017 05/18/2017 Inactive Duragesic 100 mcg/hr transdermal patch RxNorm: 023782 2 Application TD Q48H for pain 04/21/2017 05/18/2017 Inactive fluoxetine 40 mg capsule RxNorm: 798913 Capsule(s) TAKE ONE CAPSULE BY MOUTH EVERY MORNING 04/20/2017 08/17/2017 Inactive Ventolin HFA 90 mcg/actuation aerosol inhaler RxNorm: 893374 2 Puff(s) INH Q4H as needed 04/05/2017 05/26/2017 Inactive Symbicort 160 mcg-4.5 mcg/actuation HFA aerosol inhaler RxNo rm: 8429514 2 Puff(s) INH BID 03/30/2017 04/15/2018 Inactive Spiriva with HandiHaler 18 mcg and inhalation capsules RxNor m: 681709 1 Capsule(s) INH QD USING HANDIHALER 03/30/2017 02/12/2019 Inactive Duragesic 100 mcg/hr transdermal patch RxNorm: 737770 2 Application TD Q48H for pain 03/18/2017 04/16/2017 Inactive oxycodone 10 mg tablet RxNorm: 6870426 1-2 Tablet(s) PO QID as n eeded for pain 03/18/2017 04/20/2017 Inactive metformin ER 500 mg tablet,extended release 24 hr RxNorm: 86 0975 Tablet(s) TAKE ONE TABLET BY MOUTH DAILY 03/01/2017 05/06/2017 Inactive Premarin 0.45 mg tablet RxNorm: 963669 Tablet(s) TAKE ONE TABLE T BY MOUTH DAILY 03/01/2017 05/06/2017 Inactive Synthroid 112 mcg tablet RxNorm: 843971 Tablet(s) TAKE ONE TABLET BY MOUTH DAILY 03/01/2017 05/06/2017 Inactive Daliresp 500 mcg tablet RxNorm: 0426629 1 Tablet(s) PO QD 03/01/2017 09/06/2017 Inactive 16.2 mg-0.1037 mg-0.0194 mg tablet RxNorm: 5423554 Tablet(s) PO PRN for gas and cramping 02/23/2017 04/28/2017 Inactive TAKE TWO TABLET S BY MOUTH THREE TIMES A DAY NEEDED FOR GAS AND CRAMPING gabapentin 800 mg tablet RxNorm: 139901 1 Tablet(s) PO TID repl aces 600mg 02/23/2017 04/28/2017 Inactive Duragesic 100 mcg/hr transdermal patch RxNorm: 171943 2 Application TD Q48H for pain 02/17/2017 03/17/2017 Inactive fluoxetine 20 mg capsule RxNorm: 484038 1 Capsule(s) PO QD 02/18/20 17 08/12/2017 Inactive oxycodone 20 mg tablet RxNorm: 6962979 1 Tablet(s) PO QID as nee ded for pain 02/17/2017 03/17/2017 Inactive Ventolin HFA 90 mcg/actuation aerosol inhaler RxNorm: 845646 INHALE TWO PUFFS BY MOUTH EVERY 4 HOURS NEEDED 02/15/2017 04/05/2017 Inactive Silvadene 1 % topical cream RxNorm: 087709 1 Application TOP BI D to burn area 02/01/2017 09/22/2017 Inactive Topamax 100 mg tablet RxNorm: 537768 TAKE ONE TABLET BY MOUTH EVERY NIGHT AT BEDTIME 01/29/2017 05/06/2017 Inactive Chantix Starting Month Box 0.5 mg (11)-1 mg (42) table ts in dose pack RxNorm: 126448 Tablet(s) PO as directed 01/29/2017 06/01/2017 Inactive Abilify 2 mg tablet RxNorm: 334536 TAKE ONE TABLET BY MOUTH DAILY 0 01/26/2017 04/25/2017 Inactive Chantix Starting Month Box 0.5 mg (11)-1 mg (42) table ts in dose pack RxNorm: 661081 Tablet(s) PO as directed 01/20/2017 01/28/2017 Inactive gabapentin 600 mg tablet RxNorm: 092151 1 Tablet(s) PO TID 01/21/20 17 02/22/2017 Inactive Chantix Continuing Month Box 1 mg tablet RxNorm: 596778 1 Table t(s) PO BID 12/31/2016 06/01/2017 Inactive Spiriva with HandiHaler 18 mcg and inhalation capsules RxNor m: 683178 INHALE THE ENTIRE CONTENTS OF 1 CAPSULE ONCE A DAY USING HANDIHALER 12/31/201607/2017 Inactive Synthroid 112 mcg tablet RxNorm: 796114 TAKE ONE TABLET BY MOUT H DAILY 12/30/2016 03/01/2017 Inactive metformin ER 500 mg tablet,extended release 24 hr RxNorm: 86 0975 TAKE ONE TABLET BY MOUTH DAILY 12/30/2016 03/01/2017 Inactive Premarin 0.45 mg tablet RxNorm: 529343 TAKE ONE TABLET BY MOUTH DAILY 12/30/2016 03/01/2017 Inactive omeprazole 40 mg capsule,delayed release RxNorm: 687289 TAKE ONE CAPSULE BY MOUTH DAILY 12/30/2016 01/25/2018 Inactive Ventolin HFA 90 mcg/actuation aerosol inhaler RxNorm: 226363 INHALE TWO PUFFS BY MOUTH EVERY 4 HOURS NEEDED 12/28/2016 02/13/2017 Inactive fluoxetine 40 mg capsule RxNorm: 763138 TAKE ONE CAPSULE BY BENOIT TH EVERY MORNING 12/15/2016 04/20/2017 Inactive Chantix Continuing Month Box 1 mg tablet RxNorm: 872347 TAKE ONE TABLET BY MOUTH TWICE A DAY 12/04/2016 12/31/2016 Inactive doxycycline hyclate 100 mg capsule RxNorm: 8404320 1 Capsule(s) PO BID 12/01/2016 12/07/2016 Inactive Levaquin 750 mg tablet RxNorm: 487285 1 Tablet(s) PO QD 12/01/2016 Inactive Abilify 2 mg tablet RxNorm: 487825 TAKE ONE TABLET BY MOUTH DAILY 0 11/25/2016 11/30/2016 Inactive Ventolin HFA 90 mcg/actuation aerosol inhaler RxNorm: 122794 INHALE TWO PUFFS BY MOUTH EVERY 4 HOURS NEEDED 11/02/2016 12/19/2016 Inactive Chantix Continuing Month Box 1 mg tablet RxNorm: 638515 Tablet(s) PO as directed 10/30/2016 12/03/2016 Inactive Symbicort 160 mcg-4.5 mcg/actuation HFA aerosol inhaler RxNo rm: 1068514 INHALE TWO PUFFS TWO TIMES A DAY 10/30/2016 03/30/2017 Inactive Abilify 2 mg tablet RxNorm: 243366 1 Tablet(s) PO QD 10/27/201611/24 Inactive amoxicillin 500 mg capsule RxNorm: 256989 1 Capsule(s) PO TID 10/1410/23/2016 Inactive amoxicillin 500 mg capsule RxNorm: 493784 1 Capsule(s) PO TID 10/1410/13/2016 Inactive Synthroid 112 mcg tablet RxNorm: 368653 TAKE ONE TABLET BY MOUT H DAILY 09/28/2016 12/29/2016 Inactive Topamax 100 mg tablet RxNorm: 948984 TAKE ONE TABLET BY MOUTH EVERY NIGHT AT BEDTIME 09/28/2016 01/28/2017 Inactive Premarin 0.45 mg tablet RxNorm: 567350 TAKE ONE TABLET BY MOUTH DAILY 09/28/2016 12/29/2016 Inactive metformin ER 500 mg tablet,extended release 24 hr RxNorm: 86 0975 TAKE ONE TABLET BY MOUTH DAILY 09/28/2016 12/29/2016 Inactive Ventolin HFA 90 mcg/actuation aerosol inhaler RxNorm: 524842 INHALE TWO PUFFS BY MOUTH EVERY 4 HOURS NEEDED 09/22/2016 10/23/2016 Inactive Pulmicort 1 mg/2 mL suspension for nebulization RxNorm: 6168 19 1 Unit Dose INH BID Dx: COPD (J44.9) 09/10/2016 08/16/2017 Inactive Pulmicort 1 mg/2 mL suspension for nebulization RxNorm: 6168 19 1 Unit Dose INH BID 09/10/2016 09/09/2016 Inactive Brovana 15 mcg/2 mL solution for nebulization RxNorm: 748669 1 Unit Dose INH BID Dx: COPD (J44.9) 09/10/2016 01/25/2018 Inactive Brovana 15 mcg/2 mL solution for nebulization RxNorm: 867424 1 Unit Dose INH BID 09/10/2016 09/09/2016 Inactive ipratropium-albuterol 0.5 mg-3 mg(2.5 mg base)/3 mL ne bulization soln RxNorm: 3449549 1 Unit Dose INH Q4H as needed Dx: COPD (J44.9) 09/10/2016 0 02/12/2019 Inactive orphenadrine citrate ER 100 mg tablet,extended release RxNor m: 806347 1 Tablet(s) PO BID for muscle spasm--replaces methocarbamol 09/09/2016 Inactive Chantix Continuing Month Box 1 mg tablet RxNorm: 520411 Tablet(s) PO as directed 09/09/2016 10/30/2016 Inactive orphenadrine citrate ER 100 mg tablet,extended release RxNor m: 031167 1 Tablet(s) PO BID for muscle spasm 09/09/2016 09/08/2016 Inactive Spiriva with HandiHaler 18 mcg and inhalation capsules RxNor m: 547939 INHALE THE ENTIRE CONTENTS OF 1 CAPSULE ONCE A DAY USING HANDIHALER 09/01/201605/2017 Inactive Daliresp 500 mcg tablet RxNorm: 5148987 1 Tablet(s) PO QD 08/27/2016 03/01/2017 Inactive prednisone 20 mg tablet RxNorm: 445734 3 Tablet(s) PO T ID for 3 days then 1 po BID for 3 days then one daily for 3 days 08/26/2016 04/28/2017 Inactiv e Wellbutrin XL 300 mg 24 hr tablet, extended release RxNorm: 405907 TAKE ONE TABLET BY MOUTH EVERY MORNING 07/29/2016 10/26/2016 Inactive gabapentin 600 mg tablet RxNorm: 849137 1 Tablet(s) PO BID 06/26/20 16 12/22/2016 Inactive fluoxetine 40 mg capsule RxNorm: 402007 TAKE ONE CAPSULE BY BENOIT TH EVERY MORNING 06/24/2016 11/20/2016 Inactive Duragesic 100 mcg/hr transdermal patch RxNorm: 205272 2 Application TD Q48H for pain 06/05/2016 07/04/2016 Inactive oxycodone 10 mg tablet RxNorm: 7977171 1-2 Tablet(s) PO QID as n eeded for pain 06/05/2016 03/17/2017 Inactive Belladonna-Phenobarbital 48 mg tablet,extended release RxNor m: 2 Tablet(s) PO TID 06/05/2016 01/19/2017 Inactive Premarin 0.45 mg tablet RxNorm: 568435 TAKE ONE TABLET BY MOUTH DAILY 05/27/2016 09/23/2016 Inactive Topamax 100 mg tablet RxNorm: 720505 TAKE ONE TABLET BY MOUTH EVERY NIGHT AT BEDTIME 05/27/2016 09/27/2016 Inactive Synthroid 112 mcg tablet RxNorm: 209979 TAKE ONE TABLET BY MOUT H DAILY 05/27/2016 09/23/2016 Inactive metformin ER 500 mg tablet,extended release 24 hr RxNorm: 86 0975 TAKE ONE TABLET BY MOUTH DAILY 05/27/2016 09/23/2016 Inactive Symbicort 160 mcg-4.5 mcg/actuation HFA aerosol inhaler RxNo rm: 0131931 INHALE TWO PUFFS TWO TIMES A DAY 05/27/2016 10/23/2016 Inactive Ventolin HFA 90 mcg/actuation aerosol inhaler RxNorm: 809475 INHALE TWO PUFFS BY MOUTH EVERY 4 HOURS NEEDED 05/21/2016 07/07/2016 Inactive omeprazole 40 mg capsule,delayed release RxNorm: 125922 1 Capsu le(s) PO QD 05/06/2016 08/03/2016 Inactive metformin ER 500 mg tablet,extended release 24 hr RxNorm: 86 0975 TAKE ONE TABLET BY MOUTH DAILY 04/23/2016 05/22/2016 Inactive methocarbamol 750 mg tablet RxNorm: 924530 2 Tablet(s) PO TID as needed for muscle spasm 04/23/2016 09/08/2016 Inactive Synthroid 112 mcg tablet RxNorm: 146638 TAKE ONE TABLET BY MOUT H DAILY 04/23/2016 05/22/2016 Inactive Spiriva with HandiHaler 18 mcg and inhalation capsules RxNor m: 004113 INHALE THE ENTIRE CONTENTS OF 1 CAPSULE ONCE A DAY USING HANDIHALER 04/09/201608/2016 Inactive Diflucan 100 mg tablet RxNorm: 307539 1 Tablet(s) PO QD 04/08/2016 Inactive doxycycline hyclate 100 mg capsule RxNorm: 9048121 1 Capsule(s) PO BID 04/08/2016 04/17/2016 Inactive doxycycline hyclate 100 mg capsule RxNorm: 5314081 1 Capsule(s) PO BID 04/08/2016 04/07/2016 Inactive Diflucan 100 mg tablet RxNorm: 648946 1 Tablet(s) PO QD 04/08/2016 Inactive ondansetron HCl 4 mg tablet RxNorm: 939836 1 Tablet(s) PO Q4H as needed for nausea and vomiting 04/08/2016 09/22/2017 Inactive gabapentin 600 mg tablet RxNorm: 444622 TAKE ONE TABLET BY MOUT H TWICE A DAY 03/24/2016 06/25/2016 Inactive Synthroid 112 mcg tablet RxNorm: 159104 TAKE ONE TABLET BY MOUT H DAILY 02/25/2016 04/22/2016 Inactive Levaquin 500 mg tablet RxNorm: 063499 1 Tablet(s) PO QD 01/23/2016 Inactive prednisone 20 mg tablet RxNorm: 920867 1 Tablet(s) PO T ID for 3 days then 1 po BID for 3 days then one daily for 3 days 01/23/2016 08/25/2016 Inactiv e [employer]er[employer]uch Ultra Test strips RxNorm: TEST BLOOD SUGAR ONCE DAILY 250.00 01/09/2016 11/04/2017 Inactive methocarbamol 750 mg tablet RxNorm: 930230 2 Tablet(s) PO TID as needed for muscle spasm 01/09/2016 04/23/2016 Inactive lactulose 10 gram/15 mL oral solution RxNorm: 600836 [address](s) PO QD 01/09/2016 09/22/2017 Inactive TAKE 1 TABLESPOON BY MOUTH ONCE DAILY metformin ER 500 mg tablet,extended release 24 hr RxNorm: 86 0975 1 Tablet(s) PO QD 12/26/2015 04/22/2016 Inactive fluoxetine 20 mg capsule RxNorm: 122650 1 Capsule(s) PO QD 12/23/19 16 06/19/2016 Inactive Premarin 0.45 mg tablet RxNorm: 915077 TAKE ONE TABLET BY MOUTH DAILY 12/23/2015 05/20/2016 Inactive fluoxetine 40 mg capsule RxNorm: 445381 1 Capsule(s) PO QD 12/23/19 16 06/19/2016 Inactive TAKE ONE CAPSULE BY MOUTH EV JANKI MORNING azithromycin 500 mg tablet RxNorm: 717699 1 Tablet(s) PO QD 016 12/19/2015 Inactive Zofran 4 mg tablet RxNorm: 648321 1 Tablet(s) PO Q4H prn nausea /vomiting 12/13/2015 03/30/2018 Inactive azithromycin 500 mg tablet RxNorm: 390471 1 Tablet(s) PO QD 016 12/12/2015 Inactive Duragesic 100 mcg/hr transdermal patch RxNorm: 892065 2 Application TD Q48H for pain 12/09/2015 01/07/2016 Inactive oxycodone 10 mg tablet RxNorm: 8248270 1-2 Tablet(s) PO QID as n eeded for pain 12/09/2015 06/04/2016 Inactive Bactroban 2 % topical cream RxNorm: 366662 Application TOP BID 11/2208/25/2016 Inactive doxycycline hyclate 100 mg capsule RxNorm: 7046066 1 Capsule(s) PO BID 12/03/2015 12/12/2015 Inactive Topamax 100 mg tablet RxNorm: 278664 TAKE ONE TABLET BY MOUTH EVERY NIGHT AT BEDTIME 11/25/2015 05/22/2016 Inactive Symbicort 160 mcg-4.5 mcg/actuation HFA aerosol inhaler RxNo rm: 7937135 INHALE TWO PUFFS TWO TIMES A DAY 11/25/2015 05/22/2016 Inactive Synthroid 112 mcg tablet RxNorm: 407681 Tablet(s) TAKE ONE TABLET BY MOUTH DAILY 11/25/2015 02/22/2016 Inactive omeprazole 40 mg capsule,delayed release RxNorm: 368071 1 Capsu le(s) PO QD 11/12/2015 05/05/2016 Inactive oxycodone 10 mg tablet RxNorm: 5855190 1-2 Tablet(s) PO QID as n eeded for pain 11/05/2015 12/08/2015 Inactive Duragesic 100 mcg/hr transdermal patch RxNorm: 228121 2 Application TD Q48H for pain 11/05/2015 12/04/2015 Inactive omeprazole 40 mg capsule,delayed release RxNorm: 118306 1 Capsu le(s) PO QD 10/07/2015 11/11/2015 Inactive Januvia 100 mg tablet RxNorm: 337752 TAKE ONE TABLET BY MOUTH DAILY 09/11/2015 12/25/2015 Inactive Zithromax 500 mg tablet RxNorm: 279150 1 Tablet(s) PO QD 09/10/2015 1 Inactive prednisone 20 mg tablet RxNorm: 116029 1 Tablet(s) PO T ID for 3 days then 1 po BID for 3 days then one daily for 3 days 09/10/2015 08/25/2016 Inactiv e Wellbutrin XL 300 mg 24 hr tablet, extended release RxNorm: 477201 1 Tablet(s) PO QAM 09/10/2015 12/02/2015 Inactive Topamax 100 mg tablet RxNorm: 026623 TAKE ONE TABLET BY MOUTH EVERY NIGHT AT BEDTIME 09/02/2015 11/24/2015 Inactive Synthroid 112 mcg tablet RxNorm: 338860 TAKE ONE TABLET BY MOUT H DAILY 09/02/2015 11/25/2015 Inactive methocarbamol 750 mg tablet RxNorm: 173597 2 Tablet(s) PO TID as needed for muscle spasm 08/15/2015 01/09/2016 Inactive Wellbutrin XL 150 mg 24 hr tablet, extended release RxNorm: 562515 TAKE ONE TABLET BY MOUTH EVERY MORNING 08/13/2015 08/13/2015 Inactive gabapentin 600 mg tablet RxNorm: 470472 1 Tablet(s) PO BID 08/13/20 15 02/08/2016 Inactive Wellbutrin XL 300 mg 24 hr tablet, extended release RxNorm: 280959 1 Tablet(s) PO QAM 08/06/2015 09/09/2015 Inactive Wellbutrin XL 150 mg 24 hr tablet, extended release RxNorm: 976653 1 Tablet(s) PO QAM 07/18/2015 08/05/2015 Inactive prednisone 20 mg tablet RxNorm: 417290 1 Tablet(s) PO BID 07/18/2015 07/22/2015 Inactive doxycycline hyclate 100 mg tablet,delayed release RxNorm: 43 4018 1 Tablet(s) PO BID 07/18/2015 07/27/2015 Inactive pravastatin 40 mg tablet RxNorm: 328563 1 Tablet(s) PO QD NEEDS FASTING LAB 07/15/2015 07/14/2015 Inactive pravastatin 40 mg tablet RxNorm: 045422 1 Tablet(s) PO QD NEEDS FASTING LAB 07/15/2015 01/25/2018 Inactive Ventolin HFA 90 mcg/actuation aerosol inhaler RxNorm: 961468 2 Puff(s) INH Q4H 07/08/2015 07/07/2015 Inactive prn Premarin 0.45 mg tablet RxNorm: 960333 1 Tablet(s) PO QD 07/01/2015 0 12/22/2015 Inactive pravastatin 40 mg tablet RxNorm: 254760 1 Tablet(s) PO QD NEEDS FASTING LAB 06/14/2015 07/15/2015 Inactive Ventolin HFA 90 mcg/actuation aerosol inhaler RxNorm: 6772624 2 Puff(s) INH Q4H 06/06/2015 07/08/2015 Inactive prn albuterol sulfate 2.5 mg/3 mL (0.083 %) solution for n ebulization RxNorm: 644137 1 Unit Dose INH QID 05/30/2015 No Stop Date Active Duragesic 100 mcg/hr transdermal patch RxNorm: 265723 2 Application TD Q48H for pain 04/29/2015 05/28/2015 Inactive gabapentin 600 mg tablet RxNorm: 157197 1 Tablet(s) PO BID 04/11/20 15 08/13/2015 Inactive Onglyza 5 mg tablet RxNorm: 782327 1 Tablet(s) PO QD for blood suga r 04/10/2015 04/15/2015 Inactive [Brand Copay Card: RxBIN:[id number] PCN:CN RxGRP:[id number] ID#:[id number]] methocarbamol 750 mg tablet RxNorm: 378127 2 Tablet(s) PO TID as needed for muscle spasm 03/28/2015 08/15/2015 Inactive pravastatin 40 mg tablet RxNorm: 628663 1 Tablet(s) PO QD 03/19/2015 03/18/2015 Inactive pravastatin 40 mg tablet RxNorm: 322888 1 Tablet(s) PO QD 03/19/2015 06/14/2015 Inactive lactulose 10 gram/15 mL oral solution RxNorm: 071851 [address]s) PO QD 03/07/2015 01/09/2016 Inactive TAKE 1 TABLESPOON BY MOUTH ONCE DAILY oxycodone 20 mg tablet RxNorm: 5262723 1 Tablet(s) PO QID as nee ded for pain 03/05/2015 07/08/2015 Inactive Topamax 100 mg tablet RxNorm: 378684 1 Tablet(s) PO QHS TAKE ONE TABLET BY MOUTH AT BEDTIME 02/25/2015 02/12/2019 Inactive metformin ER 500 mg tablet,extended release 24 hr RxNorm: 86 0975 1 Tablet(s) PO QD 02/11/2015 03/04/2015 Inactive take one tablet by mouth every day Daliresp 500 mcg tablet RxNorm: 7038314 1 Tablet(s) PO QD 02/11/2015 08/09/2015 Inactive Endocet 10 mg-325 mg tablet RxNorm: 8288995 1 Tablet(s) PO Q4H as needed for pain 01/23/2015 01/23/2015 Inactive gabapentin 600 mg tablet RxNorm: 646036 1 Tablet(s) PO BID 01/23/20 15 04/11/2015 Inactive methocarbamol 750 mg tablet RxNorm: 344474 2 Tablet(s) PO TID as needed for muscle spasm 01/15/2015 02/13/2015 Inactive fluoxetine 40 mg capsule RxNorm: 737340 1 Capsule(s) PO QD 01/14/20 15 12/23/2015 Inactive TAKE ONE CAPSULE BY MOUTH EV JANKI MORNING fluoxetine 20 mg capsule RxNorm: 723501 1 Capsule(s) PO QD 01/14/20 15 12/23/2015 Inactive Premarin 0.45 mg tablet RxNorm: 701919 1 Tablet(s) PO QD 01/02/2015 0 07/01/2015 Inactive Endocet 10 mg-325 mg tablet RxNorm: 9848025 1-2 Tablet(s) PO Q4H 02/12/2019 Inactive PRN PAIN Duragesic 100 mcg/hr transdermal patch RxNorm: 539606 2 Application TD Q48H for pain 12/25/2014 01/23/2015 Inactive Topamax 100 mg tablet RxNorm: 633997 1 Tablet(s) PO QHS TAKE ONE TABLET BY MOUTH AT BEDTIME 12/25/2014 02/24/2015 Inactive Tudorza Pressair 400 mcg/actuation breath activated RxNorm: 7199408 1 BID INHALE ONE PUFF INTO LUNGS TWO TIMES A DAY 12/17/2014 05/15/2015 Inactive Endocet 10 mg-325 mg tablet RxNorm: 5230321 1-2 Tablet(s) PO Q4H 12/19/2014 Inactive PRN PAIN Duragesic 100 mcg/hr transdermal patch RxNorm: 154494 2 Application TD Q48H for pain 11/20/2014 12/24/2014 Inactive [employer] Ultra Test strips RxNorm: TEST BLOOD SUGAR ONCE DAILY 250.00 11/16/2014 01/08/2016 Inactive omeprazole 40 mg capsule,delayed release RxNorm: 795738 1 Capsu le(s) PO QD 11/13/2014 11/12/2015 Inactive metformin ER 500 mg tablet,extended release 24 hr RxNorm: 86 0975 1 Tablet(s) PO QD 11/12/2014 02/11/2015 Inactive take one tablet by mouth every day Symbicort 160 mcg-4.5 mcg/actuation HFA aerosol inhaler RxNo rm: 8934010 2 Puff(s) INH BID 11/12/2014 03/11/2015 Inactive INHALE 2 PUFFS O RALLY TWO TIMES A DAY gabapentin 800 mg tablet RxNorm: 933855 1 Tablet(s) PO QD TAKE ONE TABLET BY MOUTH ONCE A DAY 10/22/2014 01/01/2015 Inactive Endocet 10 mg-325 mg tablet RxNorm: 2128264 1-2 Tablet(s) PO Q4H 11/15/2014 Inactive PRN PAIN Duragesic 100 mcg/hr transdermal patch RxNorm: 305362 2 Application TD Q48H for pain 10/17/2014 11/19/2014 Inactive gabapentin 800 mg tablet RxNorm: 187446 1 Tablet(s) PO QD TAKE ONE TABLET BY MOUTH ONCE A DAY 10/04/2014 10/21/2014 Inactive Premarin 0.9 mg tablet RxNorm: 742614 1 Tablet(s) PO QD TAKE ONE TABLET BY MOUTH ONCE A DAY 10/04/2014 01/01/2015 Inactive Spiriva with HandiHaler 18 mcg & inhalation capsules RxNorm: 842864 1 Capsule(s) INH QD 10/03/2014 04/30/2015 Inactive Levaquin 500 mg tablet RxNorm: 116654 1 Tablet(s) PO QD 10/03/2014 Inactive prednisone 20 mg tablet RxNorm: 005132 1 Tablet(s) PO QD 10/03/201412/09/2013 Inactive Duragesic 100 mcg/hr transdermal patch RxNorm: 256386 2 Application TD Q48H for pain 09/18/2014 10/16/2014 Inactive Endocet 10 mg-325 mg tablet RxNorm: 3815956 1-2 Tablet(s) PO Q4H 10/16/2014 Inactive PRN PAIN Synthroid 112 mcg tablet RxNorm: 733340 1 Tablet(s) QD 09/10/2014 Inactive Synthroid 112 mcg tablet RxNorm: 938416 TAKE ONE TABLET BY MOUTH ONE TIME A DAY. NEEDS LABS 09/10/2014 02/06/2015 Inactive omeprazole 40 mg capsule,delayed release RxNorm: 826829 1 Capsu le(s) PO QD 09/03/2014 11/13/2014 Inactive omeprazole 40 mg capsule,delayed release RxNorm: 931989 1 Capsu le(s) PO QD 09/03/2014 09/02/2014 Inactive Spiriva with HandiHaler 18 mcg & inhalation capsules RxNorm: 875767 1 Capsule(s) INH QD 08/27/2014 10/02/2014 Inactive gabapentin 600 mg tablet RxNorm: 487238 1 Tablet(s) PO BID 08/27/20 14 10/22/2014 Inactive Endocet 10 mg-325 mg tablet RxNorm: 0216052 1-2 Tablet(s) PO Q4H 09/17/2014 Inactive PRN PAIN fentanyl 100 mcg/hr transdermal patch RxNorm: 020949 1 Unit Dos e TD QD 08/21/2014 09/19/2014 Inactive Daliresp 500 mcg tablet RxNorm: 5351300 1 Tablet(s) PO QD 08/13/2014 02/11/2015 Inactive Synthroid 112 mcg tablet RxNorm: 316105 TAKE ONE TABLET BY MOUTH ONE TIME A DAY. NEEDS LABS 08/10/2014 09/10/2014 Inactive Endocet 10 mg-325 mg tablet RxNorm: 8985283 1-2 Tablet(s) PO Q4H 08/17/2014 Inactive PRN PAIN Duragesic 100 mcg/hr transdermal patch RxNorm: 973852 2 Application TD Q48H for pain 07/19/2014 09/17/2014 Inactive fluoxetine 40 mg capsule RxNorm: 541087 1 Capsule(s) PO QD 07/17/20 14 01/14/2015 Inactive TAKE ONE CAPSULE BY MOUTH EV JANKI MORNING fluoxetine 20 mg capsule RxNorm: 558086 1 Capsule(s) PO QD 07/17/20 14 01/14/2015 Inactive Spiriva with HandiHaler 18 mcg & inhalation capsules RxNorm: 240542 1 Capsule(s) INH QD 07/17/2014 08/26/2014 Inactive INHALE CONTENTS OF 1 CAPSULE(S) WITH HANDIHALER ONCE DAILY Zofran 4 mg tablet RxNorm: 498860 1 Tablet(s) PO Q4H prn nausea 07/25/2014 Inactive Synthroid 112 mcg tablet RxNorm: 320912 1 Tablet(s) PO QD 07/09/2014 07/09/2014 Inactive methocarbamol 750 mg tablet RxNorm: 469470 2 Tablet(s) PO TID as needed for muscle spasm 07/09/2014 09/06/2014 Inactive Synthroid 112 mcg tablet RxNorm: 000685 1 Tablet(s) PO QD - nee d labs 07/09/2014 08/07/2014 Inactive Medrol (Aníbal) 4 mg tablets in a dose pack RxNorm: 028632 6 Tablet(s) PO QD --then as directed 07/03/2014 07/08/2014 Inactive Tudorza Pressair 400 mcg/actuation breath activated RxNorm: 9467939 1 Puff(s) INH BID 07/03/2014 12/17/2014 Inactive cefdinir 300 mg capsule RxNorm: 706629 1 Capsule(s) PO BID 07/03/20 14 07/12/2014 Inactive Topamax 100 mg tablet RxNorm: 159984 Tablet(s) TAKE ONE TABLET BY MOUTH AT BEDTIME 07/02/2014 02/25/2015 Inactive Duragesic 100 mcg/hr transdermal patch RxNorm: 074685 2 Application TD Q48H for pain 06/25/2014 07/18/2014 Inactive Endocet 10 mg-325 mg tablet RxNorm: 2678732 1-2 Tablet(s) PO Q4H 07/18/2014 Inactive PRN PAIN metformin ER 500 mg tablet,extended release 24 hr RxNorm: 86 0975 1 Tablet(s) PO QD Needs labs 06/18/2014 07/01/2014 Inactive take one tablet by mouth every day Duragesic 100 mcg/hr transdermal patch RxNorm: 295709 2 Application TD Q48H for pain 05/22/2014 06/24/2014 Inactive Synthroid 112 mcg tablet RxNorm: 816531 1 Tablet(s) PO QD 05/22/2014 07/09/2014 Inactive Endocet 10 mg-325 mg tablet RxNorm: 7322239 1-2 Tablet(s) PO Q4H 06/20/2014 Inactive PRN PAIN Endocet 10 mg-325 mg tablet RxNorm: 0142742 1-2 Tablet(s) PO Q4H 05/21/2014 Inactive PRN PAIN Duragesic 100 mcg/hr transdermal patch RxNorm: 944241 2 Application TD Q48H for pain 04/25/2014 05/21/2014 Inactive Daliresp 500 mcg tablet RxNorm: 1385036 1 Tablet(s) PO QD 04/24/2014 08/13/2014 Inactive Symbicort 160 mcg-4.5 mcg/actuation HFA aerosol inhaler RxNo rm: 3842166 2 Puff(s) INH BID 04/24/2014 08/21/2014 Inactive INHALE 2 PUFFS O RALLY TWO TIMES A DAY metformin ER 500 mg tablet,extended release 24 hr RxNorm: 86 0975 1 Tablet(s) PO QD 04/24/2014 11/12/2014 Inactive TAKE ONE TABLET BY MOUTH EVERY DAY [AttnRPh:Saving Apply/Adjudicate RxGRP:LDMGRP RxBIN:[id number] RxPCN:2012 PCode:01 ID#:[id number]] Symbicort 160 mcg-4.5 mcg/actuation HFA aerosol inhaler RxNo rm: 4391716 2 Puff(s) INH BID 04/24/2014 11/12/2014 Inactive INHALE 2 PUFFS O RALLY TWO TIMES A DAY Premarin 0.9 mg tablet RxNorm: 246533 1 Tablet(s) PO QD 04/24/2014 Inactive TAKE ONE TABLET BY MOUTH EVERY DAY metformin ER 500 mg tablet,extended release 24 hr RxNorm: 86 0975 1 Tablet(s) PO QD Needs labs 04/24/2014 06/18/2014 Inactive TAKE ONE TABLET BY MOUTH EVERY DAY [AttnRPh:Saving Apply/Adjudicate RxGRP:LDMGRP RxBIN:[id number] RxPCN:2012 PCode:01 ID#:[id number]] gabapentin 800 mg tablet RxNorm: 342483 1 Tablet(s) PO QD 04/24/2014 10/04/2014 Inactive TAKE ONE TABLET BY MOUTH EVERY DAY Topamax 100 mg tablet RxNorm: 730116 1 Tablet(s) PO QHS 04/17/2014 Inactive Topamax 100 mg tablet RxNorm: 370412 TAKE ONE TABLET BY MOUTH A T BEDTIME 04/17/2014 07/01/2014 Inactive Tudorza Pressair 400 mcg/actuation breath activated RxNorm: 2201010 1 Puff(s) INH BID 04/11/2014 07/02/2014 Inactive Duragesic 100 mcg/hr transdermal patch RxNorm: 413176 2 Application TD Q48H for pain 03/27/2014 04/24/2014 Inactive Endocet 10 mg-325 mg tablet RxNorm: 6977762 1-2 Tablet(s) PO Q4H 04/24/2014 Inactive PRN PAIN Robaxin 750 mg tablet RxNorm: 619835 2 Tablet(s) PO TID as need ed for spasm 02/23/2014 03/28/2015 Inactive Duragesic 100 mcg/hr transdermal patch RxNorm: 712028 2 Application TD Q48H for pain 02/23/2014 No Stop Date Active Endocet 10 mg-325 mg tablet RxNorm: 7780702 1-2 Tablet(s) PO Q4H 03/23/2014 Inactive PRN PAIN Synthroid 112 mcg tablet RxNorm: 858444 1 Tablet(s) PO QD TAKE ONE TABLET BY MOUTH EVERY DAY 02/15/2014 05/22/2014 Inactive Zithromax 500 mg tablet RxNorm: 930456 1 Tablet(s) PO QD 01/30/2014 0 02/05/2014 Inactive Diflucan 100 mg tablet RxNorm: 758651 1 Tablet(s) PO QD 01/30/2014 Inactive prednisone 20 mg tablet RxNorm: 957121 1 Tablet(s) PO BID 01/30/2014 02/05/2014 Inactive fluoxetine 40 mg capsule RxNorm: 786430 1 Capsule(s) PO QD 01/23/20 14 07/16/2014 Inactive TAKE ONE CAPSULE BY MOUTH EV JANKI MORNING fluoxetine 40 mg capsule RxNorm: 789397 1 Capsule(s) PO QD 01/23/20 14 07/17/2014 Inactive TAKE ONE CAPSULE BY MOUTH EV JANKI MORNING cefdinir 300 mg capsule RxNorm: 248629 1 Capsule(s) PO BID 01/16/20 14 01/29/2014 Inactive Zithromax 500 mg tablet RxNorm: 976263 1 Tablet(s) PO QD 01/16/2014 0 01/22/2014 Inactive prednisone 20 mg tablet RxNorm: 598245 1 Tablet(s) PO BID 01/16/2014 01/22/2014 Inactive Spiriva with HandiHaler 18 mcg and inhalation capsules RxNor m: 017038 1 Capsule(s) INH QD 12/18/2013 07/17/2014 Inactive INHALE CONTENT S OF 1 CAPSULE(S) WITH HANDIHALER ONCE DAILY fluoxetine 20 mg capsule RxNorm: 406225 1 Capsule(s) PO QD 12/18/19 14 06/15/2014 Inactive Spiriva with HandiHaler 18 mcg & inhalation capsules RxNorm: 965912 1 Capsule(s) INH QD 12/18/2013 06/15/2014 Inactive INHALE CONTENTS OF 1 CAPSULE(S) WITH HANDIHALER ONCE DAILY fluoxetine 20 mg capsule RxNorm: 282882 1 Capsule(s) PO QD 12/18/19 14 07/17/2014 Inactive cefdinir 300 mg capsule RxNorm: 882231 2 Capsule(s) PO QD 12/12/2013 12/21/2013 Inactive Duragesic 100 mcg/hr transdermal patch RxNorm: 181944 2 Application TD Q48H for pain 12/08/2013 12/07/2013 Inactive Topamax 100 mg tablet RxNorm: 468969 1 Tablet(s) PO QHS 12/04/2013 Inactive Endocet 10 mg-325 mg tablet RxNorm: 8457943 1-2 Tablet(s) PO Q4H 12/26/2013 Inactive PRN PAIN Robaxin 750 mg tablet RxNorm: 892497 2 Tablet(s) PO TID as need ed for spasm 11/07/2013 01/05/2014 Inactive gabapentin 800 mg tablet RxNorm: 709882 1 Tablet(s) PO QD 10/16/2013 04/24/2014 Inactive TAKE ONE TABLET BY MOUTH EVERY DAY Symbicort 160 mcg-4.5 mcg/actuation HFA aerosol inhaler RxNo rm: 1333913 2 Puff(s) INH BID 10/16/2013 04/24/2014 Inactive INHALE 2 PUFFS O RALLY TWO TIMES A DAY Premarin 0.9 mg tablet RxNorm: 495182 1 Tablet(s) PO QD 10/16/2013 Inactive TAKE ONE TABLET BY MOUTH EVERY DAY metformin ER 500 mg tablet,extended release 24 hr RxNorm: 86 0975 1 Tablet(s) PO QD 10/16/2013 04/24/2014 Inactive TAKE ONE TABLET BY MOUTH EVERY DAY Daliresp 500 mcg tablet RxNorm: 4485245 1 Tablet(s) PO QD 10/16/2013 04/24/2014 Inactive Robaxin 750 mg tablet RxNorm: 533682 2 Tablet(s) PO TID as need ed for spasm 10/10/2013 11/06/2013 Inactive Duragesic 100 mcg/hr transdermal patch RxNorm: 956453 2 Application TD Q48H for pain 10/09/2013 No Stop Date Active Soma 350 mg tablet RxNorm: 919029 1 Tablet(s) PO TID 09/27/201310/09 Inactive TAKE ONE TABLET BY MOUTH THREE TIMES A D AY lactulose 10 gram/15 mL oral solution RxNorm: 420154 [address](s) PO QD 09/13/2013 03/07/2015 Inactive TAKE 1 TABLESPOON BY MOUTH ONCE DAILY Duragesic 100 mcg/hr transdermal patch RxNorm: 513263 2 Application TD Q48H for pain 09/06/2013 No Stop Date Active Endocet 10 mg-325 mg tablet RxNorm: 1529487 1-2 Tablet(s) PO Q4H 09/27/2013 Inactive PRN PAIN lancets 28 gauge RxNorm: Miscellaneous As needed for blo od glucose sticks 08/24/2013 No Stop Date Active 16.2 mg-0.1037 mg-0.0194 mg tablet RxNorm: 0379021 Tablet(s) PO PRN for gas and cramping 08/24/2013 01/19/2017 Inactive TAKE TWO TABLET S BY MOUTH THREE TIMES A DAY NEEDED FOR GAS AND CRAMPING Topamax 100 mg tablet RxNorm: 121699 1 Tablet(s) PO QHS 07/31/2013 Inactive Diflucan 100 mg tablet RxNorm: 554035 1 Tablet(s) PO QD 07/27/2013 Inactive cefdinir 300 mg capsule RxNorm: 729352 1 Capsule(s) PO BID 07/26/20 13 08/08/2013 Inactive Daliresp 500 mcg tablet RxNorm: 7020444 1 Tablet(s) PO QD 07/25/2013 10/15/2013 Inactive fluoxetine 40 mg capsule RxNorm: 010260 1 Capsule(s) PO QD 07/25/20 13 01/22/2014 Inactive TAKE ONE CAPSULE BY MOUTH EV JANKI MORNING Senokot-S 8.6 mg-50 mg tablet RxNorm: 6991537 1 Tablet(s) PO BID 10/25/2013 Inactive doxycycline hyclate 100 mg capsule RxNorm: 3623293 1 Capsule(s) PO BID 06/28/2013 07/07/2013 Inactive prednisone 20 mg tablet RxNorm: 024394 1 Tablet(s) PO BID 06/28/2013 07/04/2013 Inactive Zofran 4 mg tablet RxNorm: 622165 1 Tablet(s) PO Q4H prn nausea 03/201307/05/2013 Inactive Spiriva with HandiHaler 18 mcg & inhalation capsules RxNorm: 625565 1 Capsule(s) INH QD 06/26/2013 12/18/2013 Inactive INHALE CONTENTS OF 1 CAPSULE(S) WITH HANDIHALER ONCE DAILY Synthroid 112 mcg tablet RxNorm: 693511 1 Tablet(s) PO QD TAKE ONE TABLET BY MOUTH EVERY DAY 06/19/2013 02/15/2014 Inactive fluoxetine 20 mg capsule RxNorm: 340539 1 Capsule(s) PO QD 06/19/20 13 12/18/2013 Inactive Ventolin HFA 90 mcg/actuation Aerosol Inhaler RxNorm: 4631092 2 Puff(s) INH Q4H 06/05/2013 No Stop Date Active prn Soma 350 mg tablet RxNorm: 722146 1 Tablet(s) PO TID 06/05/201307/04 Inactive TAKE ONE TABLET BY MOUTH THREE TIMES A D AY prednisone 20 mg tablet RxNorm: 598874 1 Tablet(s) PO QD 05/31/2013 0 06/06/2013 Inactive Topamax 100 mg tablet RxNorm: 450281 1 Tablet(s) PO QHS 05/22/2013 Inactive Levaquin 500 mg tablet RxNorm: 187525 1 Tablet(s) PO QD 05/03/2013 Inactive Diflucan 100 mg tablet RxNorm: 445751 1 Tablet(s) PO QD 05/03/2013 Inactive Daliresp 500 mcg tablet RxNorm: 2636767 1 Tablet(s) PO QD 05/01/2013 07/24/2013 Inactive Daliresp 500 mcg tablet RxNorm: 5796541 1 Tablet(s) PO QD 05/01/2013 04/30/2013 Inactive gabapentin 800 mg tablet RxNorm: 507890 1 Tablet(s) PO QD 04/10/2013 10/06/2013 Inactive TAKE ONE TABLET BY MOUTH EVERY DAY metformin ER 500 mg tablet,extended release 24 hr RxNorm: 86 0977 1 Tablet(s) PO QD 04/10/2013 10/06/2013 Inactive TAKE ONE TABLET BY MOUTH EVERY DAY Premarin 0.9 mg tablet RxNorm: 851956 1 Tablet(s) PO QD 04/10/2013 Inactive TAKE ONE TABLET BY MOUTH EVERY DAY Symbicort 160 mcg-4.5 mcg/actuation HFA aerosol inhaler RxNo rm: 0153516 2 Puff(s) INH BID 04/10/2013 10/06/2013 Inactive INHALE 2 PUFFS O RALLY TWO TIMES A DAY Synthroid 112 mcg tablet RxNorm: 308535 1 Tablet(s) PO QD TAKE ONE TABLET BY MOUTH EVERY DAY 04/10/2013 06/18/2013 Inactive Ventolin HFA 90 mcg/actuation Aerosol Inhaler RxNorm: 531220 2 Puff(s) INH Q4H 04/10/2013 No Stop Date Active prn fentanyl 100 mcg/hr transdermal patch RxNorm: 886259 1 Unit Dos e TD QD 04/03/2013 05/02/2013 Inactive Endocet 10 mg-325 mg tablet RxNorm: 2992319 1-2 Tablet(s) PO Q4H 05/02/2013 Inactive PRN PAIN Topamax 100 mg tablet RxNorm: 379563 1 Tablet(s) PO QHS 03/13/2013 Inactive Reglan 10 mg tablet RxNorm: 267814 1 Tablet(s) PO QID b efore meals and at bedtime 03/13/2013 04/09/2015 Inactive fluoxetine 20 mg capsule RxNorm: 138211 1 Capsule(s) PO QD 02/28/20 13 05/27/2013 Inactive Ventolin HFA 90 mcg/actuation Aerosol Inhaler RxNorm: 026672 2 Puff(s) INH Q4H 02/13/2013 No Stop Date Active prn fluoxetine 40 mg capsule RxNorm: 666933 1 Capsule(s) PO QD 01/31/20 13 07/24/2013 Inactive TAKE ONE CAPSULE BY MOUTH EV JANKI MORNING Soma 350 mg tablet RxNorm: 931393 1 Tablet(s) PO TID 01/20/201302/18 Inactive TAKE ONE TABLET BY MOUTH THREE TIMES A D AY Endocet 10 mg-325 mg tablet RxNorm: 7758977 1-2 Tablet(s) PO Q4H 02/06/2013 Inactive PRN PAIN MS Contin 200 mg tablet,extended release RxNorm: 037063 1 Table t(s) PO BID 01/18/2013 02/06/2013 Inactive Ventolin HFA 90 mcg/actuation Aerosol Inhaler RxNorm: 654863 2 Puff(s) INH Q4H 01/04/2013 No Stop Date Active prn Spiriva with HandiHaler 18 mcg & inhalation capsules RxNorm: 283871 1 Capsule(s) INH QD 12/29/2012 06/25/2013 Inactive INHALE CONTENTS OF 1 CAPSULE(S) WITH HANDIHALER ONCE DAILY Spiriva with HandiHaler 18 mcg & inhalation capsules RxNorm: 299821 1 Capsule(s) INH QD 12/26/2012 12/28/2012 Inactive INHALE CONTENTS OF 1 CAPSULE(S) WITH HANDIHALER ONCE DAILY Synthroid 112 mcg tablet RxNorm: 619851 Tablet(s) PO TA KE ONE TABLET BY MOUTH EVERY DAY 12/26/2012 04/09/2013 Inactive Endocet 10 mg-325 mg tablet RxNorm: 7125430 1-2 Tablet(s) PO Q4H 01/17/2013 Inactive PRN PAIN MS Contin 200 mg tablet,extended release RxNorm: 356481 1 Table t(s) PO BID 12/21/2012 01/17/2013 Inactive fluoxetine 20 mg capsule RxNorm: 145423 1 Capsule(s) PO QD 12/06/19 13 02/26/2013 Inactive Synthroid 112 mcg tablet RxNorm: 579077 1 Tablet(s) PO QD 12/06/2012 02/12/2019 Inactive TAKE ONE TABLET BY MOUTH EVERY DAY Ventolin HFA 90 mcg/actuation Aerosol Inhaler RxNorm: 065927 2 Puff(s) INH Q4H 12/06/2012 No Stop Date Active prn Reglan 10 mg tablet RxNorm: 979776 1 Tablet(s) PO QID b efore meals and at bedtime 11/24/2012 03/12/2013 Inactive Topamax 100 mg tablet RxNorm: 337706 1 Tablet(s) PO QHS 11/16/2012 Inactive Ventolin HFA 90 mcg/actuation Aerosol Inhaler RxNorm: 114409 2 Puff(s) INH Q4H 11/09/2012 No Stop Date Active prn gabapentin 800 mg tablet RxNorm: 665583 1 Tablet(s) PO QD 10/27/2012 04/09/2013 Inactive TAKE ONE TABLET BY MOUTH EVERY DAY metformin ER 500 mg tablet,extended release 24 hr RxNorm: 86 0977 1 Tablet(s) PO QD 10/27/2012 04/09/2013 Inactive TAKE ONE TABLET BY MOUTH EVERY DAY Symbicort 160 mcg-4.5 mcg/actuation HFA Aerosol Inhaler RxNo rm: 4107993 2 Puff(s) INH BID 10/27/2012 04/09/2013 Inactive INHALE 2 PUFFS O RALLY TWO TIMES A DAY Premarin 0.9 mg tablet RxNorm: 046542 1 Tablet(s) PO QD 10/27/2012 Inactive TAKE ONE TABLET BY MOUTH EVERY DAY Endocet 10 mg-325 mg tablet RxNorm: 2655918 1-2 Tablet(s) PO Q4H 11/24/2012 Inactive PRN PAIN MS Contin 200 mg tablet,extended release RxNorm: 268110 1 Table t(s) PO BID 10/26/2012 11/24/2012 Inactive Soma 350 mg tablet RxNorm: 242531 1 Tablet(s) PO TID 10/04/201211/02 Inactive TAKE ONE TABLET BY MOUTH THREE TIMES A D AY Ventolin HFA 90 mcg/actuation Aerosol Inhaler RxNorm: 845466 2 Puff(s) INH Q4H 10/03/2012 No Stop Date Active prn Daliresp 500 mcg tablet RxNorm: 0015229 1 Tablet(s) PO QD 09/28/2012 09/27/2012 Inactive Daliresp 500 mcg tablet RxNorm: 0574036 1 Tablet(s) PO QD 09/28/2012 04/25/2013 Inactive fluoxetine 20 mg capsule RxNorm: 687566 1 Capsule(s) PO QD 09/05/2012/06/2012 Inactive Topamax 50 mg tablet RxNorm: 324850 Tablet(s) PO for 1w k then 1 po q HS for 1wk then 2 po q HS 08/29/2012 09/27/2012 Inactive TAKE 1/2 TABLET BY MOUTH AT BEDTIME FOR 1 WEEK, THEN 1 TABLET AT BEDTIME FOR 1 WEEK, THEN 2 TABLETS AT BEDTIME Topamax 100 mg tablet RxNorm: 171733 1 Tablet(s) PO QHS 08/29/2012 Inactive Ventolin HFA 90 mcg/actuation Aerosol Inhaler RxNorm: 322989 2 Puff(s) INH Q4H 08/19/2012 No Stop Date Active prn Ventolin HFA 90 mcg/actuation Aerosol Inhaler RxNorm: 307853 2 Puff(s) INH Q4H 08/15/2012 No Stop Date Active prn Synthroid 112 mcg tablet RxNorm: 573586 1 Tablet(s) PO QD 08/10/2012 11/07/2012 Inactive TAKE ONE TABLET BY MOUTH EVERY DAY Synthroid 112 mcg tablet RxNorm: 996748 1 Tablet(s) PO QD 08/01/2012 08/09/2012 Inactive TAKE ONE TABLET BY MOUTH EVERY DAY Reglan 10 mg tablet RxNorm: 456062 1 Tablet(s) PO QID b efore meals and at bedtime 08/01/2012 11/23/2012 Inactive fluoxetine 40 mg capsule RxNorm: 450402 1 Capsule(s) PO QD 08/01/2001/27/2013 Inactive TAKE ONE CAPSULE BY MOUTH EV JANKI MORNING Ventolin HFA 90 mcg/actuation Aerosol Inhaler RxNorm: 206834 2 Puff(s) INH Q4H 08/01/2012 No Stop Date Active prn Soma 350 mg tablet RxNorm: 328911 1 Tablet(s) PO TID 07/20/201208/18 Inactive TAKE ONE TABLET BY MOUTH THREE TIMES A D AY Spiriva with HandiHaler 18 mcg & inhalation capsules RxNorm: 463512 1 Capsule(s) INH 07/01/2012 12/25/2012 Inactive INHALE CONTENTS OF 1 CAPSULE(S) WITH HANDIHALER ONCE DAILY Zithromax 250 mg Tab RxNorm: 874348 2 Tablet(s) PO QD 06/28/201206/22 Inactive MS Contin 200 mg tablet,extended release RxNorm: 867331 1 Table t(s) PO BID 06/28/2012 07/27/2012 Inactive Endocet 10 mg-325 mg tablet RxNorm: 5040441 1-2 Tablet(s) PO Q4H 07/27/2012 Inactive PRN PAIN Topamax 100 mg tablet RxNorm: 412395 1 Tablet(s) PO QHS 06/28/2012 Inactive 16.2 mg-0.1037 mg-0.0194 mg tablet RxNorm: 3371382 Tablet(s) PO PRN for gas and cramping 06/08/2012 08/23/2013 Inactive TAKE TWO TABLET S BY MOUTH THREE TIMES A DAY NEEDED FOR GAS AND CRAMPING Ventolin HFA 90 mcg/actuation Aerosol Inhaler RxNorm: 876905 2 Puff(s) INH Q4H 05/23/2012 No Stop Date Active prn Ventolin HFA 90 mcg/actuation Aerosol Inhaler RxNorm: 870811 2 Puff(s) INH Q4H 05/11/2012 No Stop Date Active prn Synthroid 112 mcg tablet RxNorm: 465362 1 Tablet(s) PO QD 05/09/2012 07/31/2012 Inactive TAKE ONE TABLET BY MOUTH EVERY DAY gabapentin 800 mg tablet RxNorm: 184693 1 Tablet(s) PO QD 05/09/2012 10/26/2012 Inactive TAKE ONE TABLET BY MOUTH EVERY DAY fluoxetine 40 mg capsule RxNorm: 011294 1 Capsule(s) PO QD 05/09/2007/31/2012 Inactive TAKE ONE CAPSULE BY MOUTH EV JANKI MORNING metformin ER 500 mg tablet,extended release 24 hr RxNorm: 86 0977 1 Tablet(s) PO QD 05/09/2012 10/26/2012 Inactive TAKE ONE TABLET BY MOUTH EVERY DAY Premarin 0.9 mg tablet RxNorm: 464350 1 Tablet(s) PO QD 05/09/2012 Inactive TAKE ONE TABLET BY MOUTH EVERY DAY Symbicort 160 mcg-4.5 mcg/actuation HFA Aerosol Inhaler RxNo rm: 1838038 2 Puff(s) INH BID 05/09/2012 10/26/2012 Inactive INHALE 2 PUFFS O RALLY TWO TIMES A DAY Endocet 10 mg-325 mg Tab RxNorm: 7664892 1-2 Tablet(s) PO Q4H 04/2705/26/2012 Inactive PRN PAIN MS Contin 200 mg Tab RxNorm: 825583 1 Tablet(s) PO BID 04/26/201202/2012 Inactive Ventolin HFA 90 mcg/actuation Aerosol Inhaler RxNorm: 386995 2 Puff(s) INH Q4H 04/25/2012 05/10/2012 Inactive prn Soma 350 mg tablet RxNorm: 104711 2 Tablet(s) PO TID 04/19/201207/19 Inactive TAKE ONE TABLET BY MOUTH THREE TIMES A D AY Ventolin HFA 90 mcg/actuation Aerosol Inhaler RxNorm: 450769 2 Puff(s) INH Q4H 04/12/2012 04/24/2012 Inactive prn Reglan 10 mg tablet RxNorm: 062844 1 Tablet(s) PO QID b efore meals and at bedtime 04/11/2012 07/31/2012 Inactive MS Contin 200 mg Tab RxNorm: 280360 1 Tablet(s) PO BID 03/30/201202/2012 Inactive Endocet 10 mg-325 mg Tab RxNorm: 4122552 1-2 Tablet(s) PO Q4H 03/3004/26/2012 Inactive PRN PAIN MS Contin 200 mg Tab RxNorm: 147009 1 Tablet(s) PO BID 03/02/201206/2012 Inactive Endocet 10 mg-325 mg Tab RxNorm: 2210246 1-2 Tablet(s) PO Q4H 03/0203/29/2012 Inactive PRN PAIN Daliresp 500 mcg tablet RxNorm: 8772576 1 Tablet(s) PO QD 03/01/2012 09/28/2012 Inactive MS Contin 200 mg Tab RxNorm: 301661 1 Tablet(s) PO BID 02/02/201208/2012 Inactive Endocet 10 mg-325 mg Tab RxNorm: 6176910 1-2 Tablet(s) PO Q4H 02/0103/01/2012 Inactive PRN PAIN fluoxetine 40 mg capsule RxNorm: 394104 1 Capsule(s) PO QD 02/02/2008/01/2012 Inactive TAKE ONE CAPSULE BY MOUTH EV JANKI MORNING Synthroid 112 mcg Tab RxNorm: 484450 1 Tablet(s) PO QD 01/18/2012 Inactive TAKE ONE TABLET BY MOUTH EVERY DAY lactulose 10 gram/15 mL oral solution RxNorm: 409665 [address]s) PO QD 01/18/2012 No Stop Date Active TAKE 1 TABLESPOON BY MOUTH ONCE DAILY Ventolin HFA 90 mcg/actuation Aerosol Inhaler RxNorm: 788014 2 Puff(s) INH Q4H 01/18/2012 04/11/2012 Inactive prn MS Contin 200 mg Tab RxNorm: 914115 1 Tablet(s) PO BID 01/05/201210/2012 Inactive Endocet 10 mg-325 mg Tab RxNorm: 8475720 1-2 Tablet(s) PO Q4H 01/0502/01/2012 Inactive PRN PAIN ProAir HFA 90 mcg/Actuation Aerosol Inhaler RxNorm: 591991 2 Pu ff(s) INH Q4H 12/21/2011 No Stop Date Active prn for wheezing or shortness of breath Spiriva with HandiHaler 18 mcg & inhalation Caps RxNorm: 580 261 1 Capsule(s) INH 12/21/2011 06/30/2012 Inactive INHALE CONTENTS OF 1 CAPSULE(S) WITH HANDIHALER ONCE DAILY Reglan 10 mg Tab RxNorm: 917718 1 Tablet(s) PO QID before meals and at bedtime 12/21/2011 04/10/2012 Inactive Synthroid 112 mcg Tab RxNorm: 795496 1 Tablet(s) PO QD 12/21/2011 Inactive TAKE ONE TABLET BY MOUTH EVERY DAY Endocet 10 mg-325 mg Tab RxNorm: 7297402 1-2 Tablet(s) PO Q4H 11/2512/24/2011 Inactive PRN PAIN MS Contin 200 mg Tab RxNorm: 011106 1 Tablet(s) PO BID 11/25/201112/2011 Inactive lactulose 10 gram/15 mL Oral Soln RxNorm: 278123 Milliliter(s) PO 1 No Stop Date Active TAKE 1 TABLESPOON BY MOUTH O NCE DAILY lactulose 10 gram/15 mL Oral Soln RxNorm: 940114 Milliliter(s) PO 1 12/12/2010 11/20/2011 Inactive TAKE 1 TABLESPOON BY MOUTH O NCE DAILY Premarin 0.9 mg Tab RxNorm: 418897 1 Tablet(s) PO QD 10/12/201105/08 Inactive TAKE ONE TABLET BY MOUTH EVERY DAY fluoxetine 20 mg capsule RxNorm: 963462 1 Capsule(s) PO QD 10/12/20 11 09/05/2012 Inactive TAKE ONE CAPSULE BY MOUTH EV JANKI DAY Synthroid 112 mcg Tab RxNorm: 664310 1 Tablet(s) PO QD 10/12/2011 Inactive TAKE ONE TABLET BY MOUTH EVERY DAY metformin ER 500 mg 24 hr Tab RxNorm: 401098 1 Tablet(s) PO QD 09/2311/10/2011 Inactive TAKE ONE TABLET BY MOUTH GLYNN RY DAY Synthroid 112 mcg Tab RxNorm: 539506 1 Tablet(s) PO QD 10/12/2011 Inactive TAKE ONE TABLET BY MOUTH EVERY DAY metformin ER 500 mg 24 hr Tab RxNorm: 783400 1 Tablet(s) PO QD 09/2310/11/2011 Inactive TAKE ONE TABLET BY MOUTH GLYNN RY DAY Prevacid 30 mg Cap RxNorm: 464732 Capsule(s) PO 10/12/2011 01/25/2012 Inactive TAKE ONE CAPSULE BY MOUTH EVERY DAY Symbicort 160 mcg-4.5 mcg/actuation HFA Aerosol Inhaler RxNo rm: 2780054 2 Puff(s) INH BID 10/12/2011 05/08/2012 Inactive INHALE 2 PUFFS O RALLY TWO TIMES A DAY gabapentin 800 mg Tab RxNorm: 669916 1 Tablet(s) PO QD 10/12/2011 Inactive TAKE ONE TABLET BY MOUTH EVERY DAY MS Contin 200 mg Tab RxNorm: 529727 1 Tablet(s) PO BID 09/23/201111/2010 Inactive Endocet 10 mg-325 mg Tab RxNorm: 1344185 1-2 Tablet(s) PO Q4H 09/2310/22/2011 Inactive PRN PAIN Endocet 10 mg-325 mg Tab RxNorm: 2942739 1-2 Tablet(s) PO Q4H 08/2109/19/2011 Inactive PRN PAIN MS Contin 200 mg Tab RxNorm: 279373 1 Tablet(s) PO BID 08/21/2011 Inactive Diflucan 100 mg Tab RxNorm: 292155 1 Tablet(s) PO QD 08/10/201108/16 Inactive cefdinir 300 mg Cap RxNorm: 468261 2 Capsule(s) PO QD 08/10/201107/24 Inactive Reglan 10 mg Tab RxNorm: 641462 1 Tablet(s) PO AC & HS 07/15/2011 Inactive Endocet 10 mg-325 mg Tab RxNorm: 3483390 1-2 Tablet(s) PO Q4H 07/1508/13/2011 Inactive PRN PAIN One Touch Ultra Test strips RxNorm: Miscellaneous BID 06/11/2011 1 01/16/2014 Inactive TEST TWO TIMES A DAY lactulose 10 gram/15 mL Oral Soln RxNorm: 330023 Milliliter(s) PO 0 06/10/2011 10/11/2011 Inactive TAKE 1 TABLESPOON BY MOUTH O NCE DAILY Chantix Continuing Month Aníbal 1 mg Tab RxNorm: 361208 Tablet(s) PO 0 06/10/2011 11/02/2011 Inactive TAKE DIRECTED - PER [employer] GE INSTRUCTIONS fluoxetine 40 mg Cap RxNorm: 393817 Capsule(s) PO 06/10/2011 02/02/20 12 Inactive TAKE ONE CAPSULE BY MOUTH EVERY MORNING Chantix Continuing Month Aníbal 1 mg Tab RxNorm: 694367 Ta blet(s) PO TAKE DIRECTED - PER PACKAGE INSTRUCTIONS 05/13/2011 06/09/2011 Inactive Soma 350 mg Tab RxNorm: 655264 Tablet(s) PO TAKE ON E TABLET BY MOUTH THREE TIMES A DAY 05/13/2011 04/18/2012 Inactive Chantix Continuing Month Aníbal 1 mg Tab RxNorm: 246112 Ta blet(s) PO as directed per package instructions. 04/22/2011 05/12/2011 Inactive Symbicort 160 mcg-4.5 mcg/Actuation HFA Aerosol Inhaler RxNo rm: [id number] HFA Aerosol Inhaler INH INHALE 2 PUFFS ORALLY TWO TIMES A DAY 04/13/2011 Inactive Synthroid 112 mcg Tab RxNorm: 064990 Tablet(s) PO TAKE ONE TABLET BY MOUTH EVERY DAY 04/13/2011 10/12/2011 Inactive Premarin 0.9 mg Tab RxNorm: 431797 Tablet(s) PO TAKE ON E TABLET BY MOUTH EVERY DAY 04/13/2011 10/12/2011 Inactive gabapentin 800 mg Tab RxNorm: 586838 Tablet(s) PO TAKE ONE TABLET BY MOUTH EVERY DAY 04/13/2011 10/12/2011 Inactive Prevacid 30 mg Cap RxNorm: 079963 1 Capsule(s) PO QD 04/13/201110/11 Inactive Spiriva with HandiHaler 18 mcg & inhalation Caps RxNorm: 580 261 Capsule(s) INH INHALE CONTENTS OF 1 CAPSULE(S) WITH HANDIHALER ONCE DAILY 04/13/2011 12/21/2011 Inactive metformin ER 500 mg 24 hr Tab RxNorm: 818111 Tablet(s) PO TAKE ONE TABLET BY MOUTH EVERY DAY 04/13/2011 10/12/2011 Inactive Soma 350 mg Tab RxNorm: 391579 1 Tablet(s) PO QID 03/30/2011 02/13/20 19 Inactive fluoxetine 20 mg Cap RxNorm: 526617 Capsule(s) PO TAKE ONE CAPSULE BY MOUTH EVERY DAY 03/25/2011 10/12/2011 Inactive cefdinir 300 mg Cap RxNorm: 833162 2 Capsule(s) PO QD 03/19/201105/2011 Inactive 16.2 mg-0.1037 mg-0.0194 mg Tab RxNorm: 3591081 2 Tablet(s) PO TID PRN for gas and cramping 03/16/2011 07/13/2011 Inactive Soma 350 mg Tab RxNorm: 035274 2 Tablet(s) PO TID 03/16/2011 03/29/20 11 Inactive Chantix Starting Month Aníbal 0.5 mg (11)-1 mg (3x14) Tab s in a Dose Pack RxNorm: 698401 Tablet(s) PO as directed 03/02/2011 No Stop Date Active diazepam 10 mg Tab RxNorm: 509697 1 Tablet(s) PO BID 02/10/201101/19 Inactive Zofran 4 mg tablet RxNorm: 521460 1 Tablet(s) PO Q4H prn nausea 02/16/2011 Inactive Diflucan 100 mg Tab RxNorm: 584106 1 Tablet(s) PO QD 01/18/201101/24 Inactive Premarin 0.625 mg/g Vaginal Cream RxNorm: 664568 VAG In sert 1gm vaginally at bedtime 3 times weekly 01/18/2011 02/12/2019 Inactive loratadine 10 mg Tab RxNorm: 0082604 1 Tablet(s) PO QD 12/17/201003/2012 Inactive Spiriva with HandiHaler 18 mcg & inhalation Caps RxNorm: 580 261 1 Capsule(s) INH QD 12/17/2010 04/12/2011 Inactive Diflucan 100 mg Tab RxNorm: 057830 1 Tablet(s) PO QD 12/17/201012/23 Inactive diazepam 10 mg Tab RxNorm: 836585 1 Tablet(s) PO BID and PRN 201002/12/2019 Inactive One Touch Ultra Test Strips RxNorm: InVt BID Zainab t blood sugar at least twice daily. 11/11/2010 06/11/2011 Inactive fluoxetine 40 mg Cap RxNorm: 064775 1 Capsule(s) PO QAM 11/11/2010 Inactive diazepam 10 mg Tab RxNorm: 019488 1 Tablet(s) PO BID and PRN 200911/12/2010 Inactive Bactrim DS 800 mg-160 mg Tab RxNorm: 840992 1 Tablet(s) PO BID 09/2210/15/2010 Inactive fluoxetine 20 mg Cap RxNorm: 748211 1 Capsule(s) PO QD 10/02/201008/2011 Inactive Bactrim DS 800 mg-160 mg Tab RxNorm: 140757 1 Tablet(s) PO BID 01/201010/03/2010 Inactive Zofran 4 mg Tab RxNorm: 640500 1 Tablet(s) PO Q4H prn nausea 200910/16/2010 Inactive 16.2 mg-0.1037 mg-0.0194 mg Tab RxNorm: 8868357 2 Tablet(s) PO TID PRN for gas and cramping 09/17/2010 10/21/2010 Inactive Gabapentin 800 mg Tab RxNorm: 914365 1 Tablet(s) PO QD 09/16/2010 Inactive ProAir HFA 90 mcg/Actuation Aerosol Inhaler RxNorm: 586968 2 Puff(s) INH Q4H prn shortness of breath 09/15/2010 12/13/2010 Inactive gabapentin 800 mg Tab RxNorm: 399648 1 Tablet(s) PO QD 09/15/2010 Inactive Prevacid 30 mg Cap RxNorm: 884334 1 Capsule(s) PO QD 09/15/201004/12 Inactive loratadine 10 mg Tab RxNorm: 4432011 1 Tablet(s) PO QD 09/15/2010 Inactive Premarin 0.9 mg Tab RxNorm: 069654 1 Tablet(s) PO QD 09/15/201004/12 Inactive Synthroid 112 mcg Tab RxNorm: 585118 1 Tablet(s) PO QD 09/15/2010 Inactive metformin ER 500 mg 24 hr Tab RxNorm: 908332 1 Tablet(s) PO QD 08/2304/12/2011 Inactive Symbicort 160 mcg-4.5 mcg/Actuation Inhalation HFA Aer osol Inhaler RxNorm: 9290916 2 Puff(s) INH BID 09/15/2010 04/12/2011 Inactive diazepam 10 mg Tab RxNorm: 627634 1 Tablet(s) PO BID and PRN 200910/13/2010 Inactive Phentermine 37.5 mg Cap RxNorm: 728970 1 Capsule(s) PO QD 09/02/2010 11/02/2011 Inactive ProAir HFA 90 mcg/Actuation Aerosol Inhaler RxNorm: 608608 2 Puff(s) INH Q4H prn shortness of breath 08/07/2010 No Stop Date Active Premarin 0.9 mg Tab RxNorm: 110101 1 Tablet(s) PO QD 08/07/201009/14 Inactive Loratadine 10 mg Tab RxNorm: 5981000 1 Tablet(s) PO QD 08/07/2010 Inactive Lactulose 10 gram/15 mL Oral Soln RxNorm: 972990 1 Unit Dose PO QD 08/07/2010 02/12/2019 Inactive Zofran 4 mg Tab RxNorm: 427561 1 Tablet(s) PO Q4H prn nausea 2009 No Stop Date Active Gabapentin 800 mg Tab RxNorm: 830249 1 Tablet(s) PO QD 08/07/2010 Inactive Synthroid 112 mcg Tab RxNorm: 115666 1 Tablet(s) PO QD 08/07/2010 Inactive Metformin ER 500 mg 24 hr Tab RxNorm: 909406 1 Tablet(s) PO QD 07/2309/14/2010 Inactive Vitamin D 1,000 unit Tab RxNorm: 179717 1 Tablet(s) PO TID 08/07/2002/12/2019 Inactive Symbicort 160 mcg-4.5 mcg/Actuation Inhalation HFA Aer osol Inhaler RxNorm: 7240505 2 Puff(s) INH BID 08/07/2010 09/14/2010 Inactive Prevacid 30 mg Cap RxNorm: 815001 1 Capsule(s) PO QD 08/07/201009/14 Inactive Metformin ER 500 mg 24 hr Tab RxNorm: 358132 1 Tablet(s) PO QD 06/2308/06/2010 Inactive Vitamin D 1,000 unit Tab RxNorm: 813269 1 Tablet(s) PO TID 07/14/2008/06/2010 Inactive Synthroid 112 mcg Tab RxNorm: 151037 1 Tablet(s) PO QD 07/14/2010 Inactive Lactulose 10 gram/15 mL Oral Soln RxNorm: 941181 1 Unit Dose PO QD 07/14/2010 08/06/2010 Inactive Levaquin 500 mg Tab RxNorm: 911265 1 Tablet(s) PO QD 07/14/201007/27 Inactive Premarin 0.9 mg Tab RxNorm: 518172 1 Tablet(s) PO QD 07/14/201008/06 Inactive ProAir HFA 90 mcg/Actuation Aerosol Inhaler RxNorm: 936905 2 Puff(s) INH Q4H prn shortness of breath 07/14/2010 No Stop Date Active Prevacid 30 mg Cap RxNorm: 946664 1 Capsule(s) PO QD 07/14/201008/06 Inactive Zofran 4 mg Tab RxNorm: 930184 1 Tablet(s) PO Q4H prn nausea 2009 No Stop Date Active Symbicort 160 mcg-4.5 mcg/Actuation Inhalation HFA Aer osol Inhaler RxNorm: 3357209 2 Puff(s) INH BID 07/14/2010 08/06/2010 Inactive Loratadine 10 mg Tab RxNorm: 3298652 1 Tablet(s) PO QD 07/14/2010 Inactive Gabapentin 800 mg Tab RxNorm: 444385 1 Tablet(s) PO QD 07/14/2010 Inactive Metformin ER 500 mg 24 hr Tab RxNorm: 773296 1 Tablet(s) PO 010 07/13/2010 Inactive Diazepam 10 mg Tab RxNorm: 261639 1 Tablet(s) PO BID and PRN 200909/06/2010 Inactive Premarin 0.9 mg Tab RxNorm: 010417 1 Tablet(s) PO QD 06/09/201007/13 Inactive Zofran 4 mg Tab RxNorm: 611606 1 Tablet(s) PO Q4H prn nausea 2009 No Stop Date Active ProAir HFA 90 mcg/Actuation Aerosol Inhaler RxNorm: 098408 2 Puff(s) INH Q4H prn shortness of breath 06/09/2010 No Stop Date Active Gabapentin 800 mg Tab RxNorm: 015109 1 Tablet(s) PO QD 06/09/2010 Inactive Loratadine 10 mg Tab RxNorm: 5812520 1 Tablet(s) PO QD 06/09/2010 Inactive Lactulose 10 gram/15 mL Oral Soln RxNorm: 140966 1 Unit Dose PO QD 06/09/2010 07/13/2010 Inactive Prevacid 30 mg Cap RxNorm: 089608 1 Capsule(s) PO QD 06/09/201007/13 Inactive Synthroid 112 mcg Tab RxNorm: 527953 1 Tablet(s) PO QD 06/09/2010 Inactive Symbicort 160 mcg-4.5 mcg/Actuation Inhalation HFA Aer osol Inhaler RxNorm: 5374268 2 Puff(s) INH BID 06/09/2010 07/13/2010 Inactive Omnicef 300 mg Cap RxNorm: 670376 2 Capsule(s) PO QD 05/07/201005/20 Inactive Metformin 500 mg Tab RxNorm: 154238 1 Tablet(s) PO QD 05/06/201005/22 Inactive ProAir HFA 90 mcg/Actuation Aerosol Inhaler RxNorm: 030511 2 Puff(s) INH Q4H prn shortness of breath 05/06/2010 No Stop Date Active lactulose 10 gram/15 mL Oral Soln RxNorm: 196171 1 Unit Dose PO QD 05/06/2010 06/10/2011 Inactive Loratadine 10 mg Tab RxNorm: 8081100 1 Tablet(s) PO QD 05/06/2010 Inactive Synthroid 112 mcg Tab RxNorm: 963613 1 Tablet(s) PO QD 05/06/2010 Inactive Symbicort 160 mcg-4.5 mcg/Actuation Inhalation HFA Aer osol Inhaler RxNorm: 4457212 2 Puff(s) INH BID 05/06/2010 06/08/2010 Inactive Gabapentin 800 mg Tab RxNorm: 821035 1 Tablet(s) PO QD 05/06/2010 Inactive 16.2 mg-0.1037 mg-0.0194 mg Tab RxNorm: 1409867 2 Tablet(s) PO TID PRN for gas and cramping 05/06/2010 05/12/2010 Inactive Zofran 4 mg Tab RxNorm: 760234 1 Tablet(s) PO Q4H prn nausea 200904/13/2010 Inactive MS Contin 60 mg Tab RxNorm: 068580 3 Tablet(s) PO BID 04/09/201004/22 Inactive Soma 350 mg Tab RxNorm: 075303 2 Tablet(s) PO TID 04/09/2010 05/08/20 10 Inactive Symbicort 160 mcg-4.5 mcg/Actuation Inhalation HFA Aer osol Inhaler RxNorm: 0924096 2 Puff(s) INH BID 04/08/2010 05/05/2010 Inactive Doxycycline 100 mg Cap RxNorm: 4920471 1 Capsule(s) PO BID 04/08/20 10 04/17/2010 Inactive Triamterene-Hydrochlorothiazide 37.5 mg-25 mg Cap RxNorm: 19 8316 1 Capsule(s) PO QAM 04/08/2010 09/04/2010 Inactive fluoxetine 40 mg Cap RxNorm: 719497 1 Capsule(s) PO QAM 04/08/2010 Inactive Morphine SR 120 mg multiphase 24 hr Cap RxNorm: 822379 1 Capsul e(s) PO 03/11/2010 04/07/2010 Inactive Endocet 10 mg-325 mg Tab RxNorm: 4067442 1-2 Tablet(s) PO Q4H NC N PAIN 03/11/2010 04/09/2010 Inactive Savella 100 mg Tab RxNorm: 251648 1 Tablet(s) PO BID 03/10/201004/09 Inactive Soma 350 mg Tab RxNorm: 428794 1 Tablet(s) PO TID prn spasm 010 04/09/2010 Inactive Savella 100 mg Tab RxNorm: 520051 1 Tablet(s) PO BID 02/03/201004/09 Inactive Aspirin 81 mg Tab RxNorm: 413155 1 Tablet(s) PO QD No Start Date Active Zyrtec 10 mg Tab RxNorm: 4528081 1 Tablet(s) PO QD No Start Date Active One Touch Ultra Test Strips RxNorm: Misc test at least t wice daily. No Start Date Active coenzyme Q10 200 mg capsule RxNorm: 521739 1 Capsule(s) PO QD No Star t Date Active One Touch Ultra Test Strips RxNorm: InVt BID Zainab t blood sugar at least twice daily. No Start Date 11/10/2010 Inactive Gabapentin 800 mg Tab RxNorm: 408818 1 Tablet(s) PO QD No Start Date 05/05/2010 Inactive Abilify 5 mg tablet RxNorm: 455151 1 Tablet(s) PO QD No Start Date Inactive Chantix 1 mg Tab RxNorm: 342887 1 Tablet(s) PO BID No Start Date 10/22 Inactive Ozempic 0.25 mg or 0.5 mg (2 mg/1.5 mL) subcutaneous p en injector RxNorm: 8660894 .25 Milligram(s) SQ QW No Start Date 07/04/2019 Inactive lancets 28 gauge RxNorm: Miscellaneous As needed for blo od glucose sticks No Start Date 08/23/2013 Inactive potassium chloride ER 20 mEq tablet,extended release RxNorm: 003990 2 Tablet(s) PO QD No Start Date 09/26/2018 Inactive Ventolin HFA 90 mcg/actuation Aerosol Inhaler RxNorm: 995161 2 Puff(s) INH Q4H prn No Start Date 01/17/2012 Inactive potassium chloride ER 20 mEq tablet,extended release RxNorm: 842033 2 Tablet(s) PO QD No Start Date 10/19/2018 Inactive Januvia 100 mg tablet RxNorm: 028300 1 Tablet(s) PO QD No Start Date 09/10/2015 Inactive Medrol (Aníbal) 4 mg Tabs in a Dose Pack RxNorm: 766964 Tablet(s) PO N o Start Date 08/09/2011 Inactive as directed Zithromax Z-Aníbal 250 mg Tab RxNorm: 995123 Tablet(s) PO No Start Date 01/25/2012 Inactive as directed vitamin B6-vitamin E-magnesium tablet RxNorm: 1 Tablet(s ) PO QHS with INH No Start Date 03/30/2018 Inactive prednisone 20 mg Tab RxNorm: 821228 1 Tablet(s) PO TID for 1wk then 1 po BID for 1wk No Start Date 01/25/2012 Inactive furosemide 40 mg tablet RxNorm: 523611 1 Tablet(s) PO QAM No Start Date 10/09/2018 Inactive Vitamin D3 1000 units Capsule RxNorm: 1 Capsule(s) PO TID No S tart Date 03/19/2015 Inactive Zofran 4 mg Tab RxNorm: 559700 1 Tablet(s) PO Q4H prn nausea No Sta rt Date 04/13/2010 Inactive Premarin 0.625 mg/g Vaginal Cream RxNorm: 116901 1 Gram (s) VAG QHS 3 times a week No Start Date 09/22/2017 Inactive oxycodone 10 mg tablet RxNorm: 4936545 1-2 Tablet(s) PO QID as n eeded for pain No Start Date 11/04/2015 Inactive Nicoderm CQ 21 mg/24 hr daily Patch RxNorm: 814454 1 Applicatio n TD QD No Start Date 08/05/2015 Inactive Topamax 50 mg tablet RxNorm: 373062 1/2 Tablet(s) PO QH S for 1wk then 1 po q HS for 1wk then 2 po q HS No Start Date 06/27/2012 Inactive Chantix Starting Month Aníbal 0.5 mg (11)-1 mg (3x14) Tab s in a Dose Pack RxNorm: 346820 Tablet(s) PO as directed No Start Date 03/01/2011 Inactive Trulicity 0.75 mg/0.5 mL subcutaneous pen injector RxNorm: 1 860322 Milliliter(s) SQ No Start Date 07/04/2019 Inactive Medrol (Aníbal) 4 mg Tabs in a Dose Pack RxNorm: 537183 Tablet(s) PO N o Start Date 01/25/2012 Inactive as directed Duragesic 100 mcg/hr Transderm Patch RxNorm: 277579 2 A pplication TD Q48H for pain No Start Date 09/05/2013 Inactive Premarin 0.9 mg Tab RxNorm: 624893 1 Tablet(s) PO QD No Start Date Inactive Zithromax Z-Aníbal 250 mg Tab RxNorm: 171103 Tablet(s) PO as direc chinmay No Start Date 01/25/2012 Inactive ondansetron 8 mg disintegrating tablet RxNorm: 049487 1 Tablet(s) PO Q6H as needed No Start Date 10/10/2018 Inactive oxycodone 15 mg tablet RxNorm: 7071427 1 Tablet(s) PO QID as nee ded for pain No Start Date 03/05/2019 Inactive ProAir HFA 90 mcg/Actuation Aerosol Inhaler RxNorm: 881324 2 Puff(s) INH Q4H prn for wheezing or shortness of breath No Start Date 12/21/2011 Inactive pravastatin 40 mg tablet RxNorm: 567816 1/2 Tablet(s) PO QOD No Sta rt Date 04/09/2015 Inactive ipratropium-albuterol 0.5 mg-3 mg(2.5 mg base)/3 mL ne bulization soln RxNorm: 5998593 1 Unit Dose INH Q4H as needed No Start Date 09/09/2016 Inactive furosemide 40 mg tablet RxNorm: 452578 1 Tablet(s) PO QAM as ne eded No Start Date 09/24/2019 Inactive Vitamin D2 oral RxNorm: 4018 oral No Start Date 03/18/2015 Inacti ve pravastatin 40 mg tablet RxNorm: 784954 1/2 Tablet(s) PO QD No Star t Date 04/09/2015 Inactive ondansetron HCl 4 mg tablet RxNorm: 057988 1 Tablet(s) PO Q4H as needed for nausea and vomiting No Start Date 04/07/2016 Inactive furosemide 40 mg tablet RxNorm: 295199 2 Tablet(s) PO QAM No Start Date 09/26/2018 Inactive gabapentin 800 mg tablet RxNorm: 372957 1/2 Tablet(s) PO BID No Sta rt Date 06/21/2017 Inactive gabapentin 800 mg tablet RxNorm: 078308 1/2 Tablet(s) PO BID No Sta rt Date 07/05/2017 Inactive ProAir HFA 90 mcg/Actuation Aerosol Inhaler RxNorm: 176540 2 Puff(s) INH Q4H prn shortness of breath No Start Date 05/05/2010 Inactive scopolamine 1 mg over 3 days transdermal patch RxNorm: 88902 2 1 Application TD behind ear. Take off after three days No Start Date 10/10/2018 Inactive Metformin 500 mg Tab RxNorm: 132254 1 Tablet(s) PO QD No Start Date 0 05/05/2010 Inactive MS Contin 200 mg Tab RxNorm: 892538 1 Tablet(s) PO BID No Start Date 08/20/2011 Inactive Belladonna-Phenobarbital 48 mg tablet,extended release RxNor m: 2 Tablet(s) PO TID No Start Date 06/04/2016 Inactive Synthroid 112 mcg Tab RxNorm: 536717 1 Tablet(s) PO QD No Start Date 05/05/2010 Inactive Zegerid 40 mg-1.1 gram Cap RxNorm: 962176 1 Capsule(s) PO QD No Sta rt Date 01/25/2012 Inactive Premarin 0.625 mg/g Vaginal Cream RxNorm: 400830 VAG In sert 1gm vaginally at bedtime 3 times weekly No Start Date 01/17/2011 Inactive potassium chloride ER 20 mEq tablet,extended release RxNorm: 997681 1 Tablet(s) PO QD No Start Date 04/24/2019 Inactive methocarbamol 750 mg tablet RxNorm: 287146 2 Tablet(s) PO TID as needed for muscle spasm No Start Date 07/08/2014 Inactive Biaxin XL Aníbal 500 mg 24 hr Tab RxNorm: 558720 Tablet(s) PO as d irected No Start Date 04/24/2013 Inactive Vitamin D3 1,000 unit tablet RxNorm: 151059 3 Tablet(s) PO QD No St art Date 06/01/2017 Inactive Morphine SR 120 mg multiphase 24 hr Cap RxNorm: 901954 1 Capsul e(s) PO BID No Start Date 04/09/2010 Inactive Silvadene 1 % topical cream RxNorm: 722952 1 Application TOP BI D to burn area No Start Date 01/31/2017 Inactive Prednisone 20 mg Tab RxNorm: 996813 1 Tablet(s) PO TID for 3days then BID for 4days No Start Date 01/25/2012 Inactive gabapentin 600 mg tablet RxNorm: 360985 1 Tablet(s) PO BID No Start Date 01/21/2015 Inactive topiramate 50 mg tablet RxNorm: 199223 1 Tablet(s) PO QHS No Start Date 03/30/2018 Inactive Januvia 100 mg tablet RxNorm: 341995 1/2 Tablet(s) PO QD No Start D ate 12/25/2015 Inactive Diazepam 10 mg Tab RxNorm: 620456 1 Tablet(s) PO BID and PRN No Sta rt Date 06/08/2010 Inactive Medication Administered No Medication Administered data Immunizations Vaccine Codes Date Status Influenza CVX: 141 09/28/2012 Pneumovax Unknown 09/28/2012 Influenza (Adult) CVX: 141 09/02/2010 Results No Results data Procedures Procedure Codes Date THER/PROPH/DIAG INJ SC/IM CPT-4: 39933 07/10/2019 METHYLPREDNISOLONE INJECTION CPT-4: J2930 07/10/2019 URINALYSIS NONAUTO W/O SCOPE CPT-4: 95422 09/06/2018 URINE CULTURE/ COLONY COUNT CPT-4: 13132 09/06/2018 DRAIN/INJECT JOINT/BURSA CPT-4: 67078 04/29/2017 TRIAMCINOLONE ACET INJ NOS CPT-4: J3301 04/29/2017 DEXAMETHASONE SODIUM PHOS CPT-4: J1100 04/29/2017 INFLUENZA ASSAY W/OPTIC CPT-4: 12706 12/01/2016 RESPIRATORY CULTURE & STAIN CPT-4: 03346 07/09/2016 TB INTRADERMAL TEST CPT-4: 20150 04/21/2016 DRAIN/INJECT JOINT/BURSA CPT-4: 14140 11/07/2013 METHYLPREDNISOLONE 40 MG INJ CPT-4: J1030 11/07/2013 TRIAMCINOLONE ACET INJ NOS CPT-4: J3301 11/07/2013 DRAIN/INJECT JOINT/BURSA CPT-4: 43392 08/08/2013 METHYLPREDNISOLONE 40 MG INJ CPT-4: J1030 08/08/2013 TRIAMCINOLONE ACET INJ NOS CPT-4: J3301 08/08/2013 FLU VACCINE 3 YRS & > IM UP 64 CPT-4: 57327 2 PNEUMOCOCCAL VACC 23 ADITYA IM CPT-4: 93778 09/28/2012 IMMUNIZATION ADMIN CPT-4: 91555 09/28/2012 IMMUNIZATION ADMIN EACH ADD CPT-4: 47099 09/28/2012 FLU VACCINE 3 YRS & > IM UP 64 CPT-4: 18293 0 IMMUNIZATION ADMIN CPT-4: 54494 09/02/2010 METHYLPREDNISOLONE INJECTION CPT-4: J2930 05/07/2010 THER/PROPH/DIAG INJ SC/IM CPT-4: 79676 05/07/2010 Vital Signs Date Vital 11/29/2019 Blood [...] 1: 122/78 Code: 8480-6 BMI: 29.5 Code: 23830-1 Heart Rate 1: 76 bpm Height: 5'4" Respiratory Rate: 20 bpm SpO2: 96% Tempera ture: 37.0 (C) / 98.6 (F) Weight: 172 lbs 01/25/2019 Blood Pressure 1: 132/80 Code: 8480-6 BMI: 29.7 Code: 45733-3 Heart Rate 1: 84 bpm Height: 5'4" Respiratory Rate: 22 bpm SpO2: 98% Tempera ture: 36.9 (C) / 98.4 (F) Weight: 173 lbs 01/03/2019 Blood Pressure 1: 116/70 Code: 8480-6 BMI: 29.5 Code: 66011-3 Heart Rate 1: 92 bpm Height: 5'4" Respiratory Rate: 24 bpm SpO2: 98% Tempera ture: 37.2 (C) / 98.9 (F) Weight: 172 lbs 11/21/2018 Blood Pressure 1: 146/82 Code: 8480-6 BMI: 28.2 Code: 42116-5 Heart Rate 1: 88 bpm Height: 5'4" Respiratory Rate: 22 bpm SpO2: 97% Tempera ture: 36.9 (C) / 98.4 (F) Weight: 164 lbs 10/27/2018 Blood Pressure 1: 122/70 Code: 8480-6 BMI: 27.6 Code: 72127-3 Heart Rate 1: 88 bpm Height: 5'4" Respiratory Rate: 20 bpm SpO2: 96% Tempera ture: 36.8 (C) / 98.3 (F) Weight: 161 lbs 10/18/2018 Blood Pressure 1: 126/70 Code: 8480-6 BMI: 28.3 Code: 54323-5 Heart Rate 1: 76 bpm Height: 5'4" Respiratory Rate: 20 bpm SpO2: 95% Tempera ture: 37.0 (C) / 98.6 (F) Weight: 165 lbs 09/27/2018 Blood Pressure 1: 124/78 Code: 8480-6 BMI: 27.1 Code: 32876-8 Heart Rate 1: 88 bpm Height: 5'4" Respiratory Rate: 20 bpm SpO2: 98% Tempera ture: 36.4 (C) / 97.6 (F) Weight: 158 lbs 09/14/2018 Blood Pressure 1: 140/72 Code: 8480-6 BMI: 26.1 Code: 21294-8 Heart Rate 1: 100 bpm Height: 5'4" Respiratory Rate: 20 bpm SpO2: 97% Tempera ture: 36.9 (C) / 98.4 (F) Weight: 152 lbs 09/06/2018 Blood Pressure 1: 156/82 Code: 8480-6 BMI: 26.3 Code: 67285-6 Heart Rate 1: 100 bpm Height: 5'4" Respiratory Rate: 28 bpm SpO2: 95% Tempera ture: 37.2 (C) / 98.9 (F) Weight: 153 lbs 08/16/2018 Blood Pressure 1: 130/78 Code: 8480-6 Heart Rate 1: 87 bpm Respiratory Rate: 24 bpm SpO2: 94% Temperature: 36.9 (C) / 98.4 (F) We ight: 147 lbs 8 oz 07/07/2018 Blood Pressure 1: 116/78 Code: 8480-6 BMI: 22.7 Code: 14735-2 Heart Rate 1: 88 bpm Height: 5'4" Respiratory Rate: 22 bpm SpO2: 98% Tempera ture: 36.5 (C) / 97.7 (F) Weight: 132 lbs 05/31/2018 Blood Pressure 1: 128/78 Code: 8480-6 BMI: 22.3 Code: 73168-1 Heart Rate 1: 92 bpm Height: 5'4" Respiratory Rate: 26 bpm SpO2: 94% Tempera ture: 36.7 (C) / 98.1 (F) Weight: 130 lbs 03/31/2018 Blood Pressure 1: 136/78 Code: 8480-6 BMI: 21.5 Code: 02729-9 Heart Rate 1: 76 bpm Height: 5'4" Respiratory Rate: 24 bpm SpO2: 95% Tempera ture: 36.8 (C) / 98.3 (F) Weight: 125 lbs 01/26/2018 Blood Pressure 1: 142/64 Code: 8480-6 BMI: 20.6 Code: 41974-6 Heart Rate 1: 90 bpm Height: 5'4" Respiratory Rate: 24 bpm SpO2: 92% Tempera ture: 36.3 (C) / 97.3 (F) Weight: 120 lbs 10/26/2017 Blood Pressure 1: 124/70 Code: 8480-6 BMI: 20.3 Code: 30186-1 Heart Rate 1: 76 bpm Height: 5'4" Respiratory Rate: 22 bpm SpO2: 94% Tempera ture: 36.7 (C) / 98.1 (F) Weight: 118 lbs 09/23/2017 Blood Pressure 1: 106/70 Code: 8480-6 BMI: 19.2 Code: 16374-4 Heart Rate 1: 76 bpm Height: 5'4" Respiratory Rate: 20 bpm SpO2: 94% Tempera ture: 36.8 (C) / 98.3 (F) Weight: 112 lbs 08/12/2017 Blood Pressure 1: 116/68 Code: 8480-6 BMI: 20.1 Code: 47554-3 Heart Rate 1: 80 bpm Height: 5'4" Respiratory Rate: 22 bpm SpO2: 95% Tempera ture: 36.8 (C) / 98.2 (F) Weight: 117 lbs 07/06/2017 Blood Pressure 1: 136/78 Code: 8480-6 BMI: 20.6 Code: 10203-4 Heart Rate 1: 76 bpm Height: 5'4" Respiratory Rate: 24 bpm SpO2: 96% Tempera ture: 36.8 (C) / 98.2 (F) Weight: 120 lbs 06/02/2017 Blood Pressure 1: 112/70 Code: 8480-6 Heart Rate 1: 92 bpm Height: 5'4" Respiratory Rate: 24 bpm SpO2: 95% Temperature: 37.0 (C) / 98.6 (F) Weight: 04/29/2017 Blood Pressure 1: 94/52 Code: 8480-6 BMI: 19.6 C ode: 78757-2 Heart Rate 1: 84 bpm Height: 5'4" [...] 92/58 Code: 8480-6 BMI: 19.2 C ode: 82804-7 Heart Rate 1: 84 bpm Height: 5'4" Respiratory Rate: 26 bpm SpO2: 95% Tempera ture: 36.7 (C) / 98.0 (F) Weight: 112 lbs 12/01/2016 Blood Pressure 1: 114/70 Code: 8480-6 BMI: 19.2 Code: 57381-4 Heart Rate 1: 96 bpm Height: 5'4" Respiratory Rate: 28 bpm SpO2: 93% Tempera ture: 38.3 (C) / 101.0 (F) Weight: 112 lbs 10/27/2016 Blood Pressure 1: 126/66 Code: 8480-6 BMI: 19.6 Code: 25388-3 Heart Rate 1: 92 bpm Height: 5'4" Respiratory Rate: 28 bpm SpO2: 90% Tempera ture: 36.8 (C) / 98.3 (F) Weight: 114 lbs 09/09/2016 Blood Pressure 1: 126/74 Code: 8480-6 Heart Rate 1: 104 bpm Height: 5'4" Respiratory Rate: 32 bpm SpO2: 88% Temperature: 37 .2 (C) / 99.0 (F) 08/26/2016 Blood Pressure 1: 134/82 Code: 8480-6 BMI: 22.0 Code: 12053-2 Heart Rate 1: 84 bpm Height: 5'4" Respiratory Rate: 24 bpm SpO2: 94% Tempera ture: 36.8 (C) / 98.3 (F) Weight: 128 lbs 05/21/2016 Blood Pressure 1: 142/80 Code: 8480-6 BMI: 21.6 Code: 23688-7 Heart Rate 1: 104 bpm Height: 5'4" Respiratory Rate: 22 bpm SpO2: 93% Tempera ture: 36.0 (C) / 96.8 (F) Weight: 126 lbs 03/25/2016 Blood Pressure 1: 126/62 Code: 8480-6 Heart Rate 1: 88 bpm Respiratory Rate: 20 bpm SpO2: 92% Temperature: 36.8 (C) / 98.3 (F) We ight: 130 lbs 01/23/2016 Blood Pressure 1: 146/82 Code: 8480-6 BMI: 24.1 Code: 97215-1 Heart Rate 1: 92 bpm Height: 5'3" Respiratory Rate: 22 bpm Temperature: 37 .1 (C) / 98.8 (F) Weight: 136 lbs 12/26/2015 Blood Pressure 1: 142/78 Code: 8480-6 BMI: 24.6 Code: 50999-5 Heart Rate 1: 78 bpm Height: 5'3" Respiratory Rate: 20 bpm Temperature: 36 .7 (C) / 98.1 (F) Weight: 139 lbs 12/03/2015 Blood Pressure 1: 126/60 Code: 8480-6 BMI: 24.6 Code: 50253-4 Heart Rate 1: 100 bpm Height: 5'3" Respiratory Rate: 28 bpm Temperature: 37 .6 (C) / 99.6 (F) Weight: 139 lbs 09/10/2015 Blood Pressure 1: 124/64 Code: 8480-6 BMI: 23.7 Code: 51753-5 Heart Rate 1: 88 bpm Height: 5'3" Respiratory Rate: 24 bpm SpO2: 95% Tempera ture: 36.4 (C) / 97.6 (F) Weight: 134 lbs 08/06/2015 Blood Pressure 1: 114/76 Code: 8480-6 BMI: 23.2 Code: 44073-1 Heart Rate 1: 88 bpm Height: 5'3" Respiratory Rate: 22 bpm Temperature: 36 .6 (C) / 97.9 (F) Weight: 131 lbs 07/18/2015 Blood Pressure 1: 144/78 Code: 8480-6 BMI: 23.7 Code: 23185-0 Heart Rate 1: 84 bpm Height: 5'3" Respiratory Rate: 20 bpm Temperature: 37 .2 (C) / 99.0 (F) Weight: 134 lbs 04/10/2015 Blood Pressure 1: 110/64 Code: 8480-6 Heart Rate 1: 80 bpm Height: Respiratory Rate: 20 bpm Temperature: 37.1 (C) / 98.8 (F) Weight: 03/05/2015 Blood Pressure 1: 136/80 Code: 8480-6 BMI: 23.9 Code: 13523-0 Heart Rate 1: 76 bpm Height: 5'3" Respiratory Rate: 24 bpm Temperature: 37 .0 (C) / 98.6 (F) Weight: 135 lbs 01/30/2015 Blood Pressure 1: 142/80 Code: 8480-6 BMI: 23.0 Code: 35561-4 Heart Rate 1: 96 bpm Height: 5'3" Respiratory Rate: 22 bpm Temperature: 36 .2 (C) / 97.2 (F) Weight: 130 lbs 01/02/2015 Blood Pressure 1: 124/70 Code: 8480-6 BMI: 23.4 Code: 87509-6 Heart Rate 1: 84 bpm Height: 5'3" Respiratory Rate: 24 bpm SpO2: 95% Tempera ture: 36.9 (C) / 98.5 (F) Weight: 132 lbs 10/03/2014 Blood Pressure 1: 106/68 Code: 8480-6 BMI: 22.5 Code: 12057-8 Heart Rate 1: 88 bpm Height: 5'3" Respiratory Rate: 24 bpm Temperature: 37 .0 (C) / 98.6 (F) Weight: 127 lbs 08/27/2014 Blood Pressure 1: 124/68 Code: 8480-6 BMI: 21.1 Code: 37352-3 Heart Rate 1: 88 bpm Height: 5'3" [...] 1: 120/70 Code: 8480-6 BMI: 19.2 Code: 90741-1 Heart Rate 1: 70 bpm Height: 5'4" Respiratory Rate: 20 bpm Temperature: 36 .9 (C) / 98.4 (F) Weight: 112 lbs 06/28/2013 Blood Pressure 1: 102/68 Code: 8480-6 BMI: 19.6 Code: 21075-6 Heart Rate 1: 76 bpm Height: 5'4" Respiratory Rate: 20 bpm Temperature: 36 .8 (C) / 98.2 (F) Weight: 114 lbs 05/31/2013 Blood Pressure 1: 106/70 Code: 8480-6 BMI: 18.9 Code: 29083-5 Heart Rate 1: 100 bpm Height: 5'4" Respiratory Rate: 20 bpm Temperature: 36 .4 (C) / 97.6 (F) Weight: 110 lbs 05/03/2013 Blood Pressure 1: 126/70 Code: 8480-6 BMI: 19.1 Code: 01441-3 Heart Rate 1: 88 bpm Height: 5'4" Respiratory Rate: 20 bpm Temperature: 37 .1 (C) / 98.8 (F) Weight: 111 lbs 04/25/2013 Blood Pressure 1: 114/68 Code: 8480-6 BMI: 19.4 Code: 01466-2 Heart Rate 1: 92 bpm Height: 5'4" Respiratory Rate: 24 bpm SpO2: 96% Tempera ture: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 WPtel: [address] [place], [place] [phone] voicemail FOLLOW UP 06/28/2012 Patient Education: Patient Medication Summary Completed 06/28/2012 Visit Plan: Topamax from Migraine preven tion Smoking cessation 05/03/2012 Appointment: Vika Renteriatel: [address] [place], [place] [phone] 04/26/12: appt rescheduled from 04/26/12 by daughter [...] smoking cessation 03/01/2012 Appointment: Vika Renteria WPtel: [address] [place], [place] [phone] FOLLOW UP 03/01/2012 Patient Education: Patient Medication Summary Completed 03/01/2012 Visit Plan: Overnight pulse ox Smoking C essation Add Daliresp 500mg daily Hold Metformin 01/26/2012 Appointment: Vika Renteria WPtel: [address] [place], [place] [phone] FOLLOW UP 01/26/2012 Patient Education: Patient Medication Summary Completed 01/26/2012 Visit Plan: Discussed methotrexate trial , but do to chronic bronchitis pt wants to hold Smoking cessation Check CMP, CBC, TSH, Free T4, Lipids. ESR, ds DNA, JOVANNY Check EGD 11/03/2011 Appointment: Vika Renteria WPtel: [address] [place], [place] [phone] FOLLOW UP 11/03/2011 Patient Education: Patient Medication Summary Completed 11/03/2011 Appointment: Vika Renteriatel: [address] [place], [place] [phone] 08/10/2011 Patient Education: Patient Medication Summary Completed 08/10/2011 Visit Plan: Supportive care. Rest, Fluid s, Tylenol/Motrin prn fever or bodyaches. Notify if worsening symptoms. Medrol Dose Pack Smoking Cessation and recommend get rid of cat Add Reglan for stomach 07/15/2011 Appointment: Vika Renteriatel: [address] [place] [address] ACUTE ILLNESS 07/15/2011 Patient Education: Patient Medication Summary Completed 07/15/2011 Appointment: Vika Renteria WPtel: [address] [place] [address] FOLLOW UP 04/02/2011 Visit Plan: SVN with Albuterol 0.083% Q4 hrs and Q2hrs prn. Cont smoking Cessation 03/19/2011 Appointment: Vika Renteria WPtel: [address] [place] [address] ACUTE ILLNESS 03/19/2011 Patient Education: Patient Medication Summary Completed 03/19/2011 Visit Plan: Repeat Biaxin XL Cont curren t meds Repeat Chantix 01/28/2011 Appointment: Vika Renteria WPtel: [address] [place] [address] FOLLOW UP 01/28/2011 Patient Education: Patient Medication Summary Completed 01/28/2011 Patient Education: Chantix Unbranded Comp leted 01/28/2011 Appointment: Vika Renteria WPtel: [address] [place] [address] FOLLOW UP 01/14/2011 Visit Plan: Finish abx Diflucan for vagi nitis Premarin vaginal cream Smoking cessation 12/17/2010 Appointment: Vika Renteria WPtel: [address] [place] [address] Follow Up 12/17/2010 Patient Education: Patient Medication Summary Completed 12/17/2010 Appointment: Vika Renteria WPtel: [address] [place] [address] FOLLOW UP 11/06/2010 Visit Plan: Start PT Use SVNs every 4hrs Smoking Cessation Change MS Contin to 200mg q 12hrs 2010 Appointment: Vika Renteria WPtel: [address] [place], [place] [address] FOLLOW UP 2010 Patient Education: Patient Medication Summary Completed 2010 Visit Plan: Prednisone taper for pain an d lungs 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 Increase fluoxetine to 60mg QD for acute stress reaction 10/02/2010 Appointment: Vika Renteria WPtel: [address] [place] [address] FOLLOW UP 10/02/2010 Patient Education: Patient Medication Summary Completed 10/02/2010 Visit Plan: Check CT Head, Cervical, Tho racic, and Lumbar Spine Cont current meds Bactrim for left toe 09/24/2010 Appointment: Vika Renteria WPtel: [address] [place], [place] [address] CHECK UP 09/24/2010 Patient Education: Patient Medication Summary Completed 09/24/2010 Appointment: Vika Renteria WPtel: [address] [place] [address] FOLLOW UP 09/02/2010 Patient Education: Patient Medication Summary Completed 09/02/2010 Visit Plan: Return for 2nd epidural Obse rve right leg lesion Cont Symbicort and Spiriva 07/14/2010 Appointment: Vika Renteria WPtel: [address] [place], [place] [phone] [place] FOLLOW UP 07/14/2010 Patient Education: Patient Medication Summary Completed 07/14/2010 Appointment: Vika Renteria WPtel: [address] [place], [place] [address] [place] FOLLOW UP 05/27/2010 Appointment: Vika Renteria WPtel: [address] [place], [place] [phone] [place] FOLLOW UP 05/14/2010 Visit Plan: SVN with Albuterol 0.083% Q4 hrs and Q2hrs prn. Restart Spiriva Smoking Cessation 05/07/2010 Appointment: Vika Renteria WPtel: [phone] [id number] FOLLOW UP 05/07/2010 Patient Education: Patient Medication Summary Completed 05/07/2010 Appointment: Vika Renteria WPtel: [phone] [id number] ACUTE ILLNESS 04/08/2010 Patient Education: Patient Medication Summary Completed 04/08/2010 Referral: Kyle Billings WPtel: [phone] [id number] [place] Referral Completed Referral: Jaylan Matute WPtel: [address] [facility] [address] [id number] [place] Referral Initiated Referral: Kyle Billings WPtel: [phone] [address] [place] Referral Appointment Requested Instructions Comment . [...]
--- OUTSIDE RECORDS SUMMARY | 2020-04-24 21:59 | XMS REPORT | CCD ---
Author Author Yana Renteria D.O. 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 Role Phone Vika Renteria D.O., PP Unavailable CCM Unavailable Summary Purpose Interface Exchange Insurance Providers Payer name Policy type / Coverage type Covered republican ID Effective Begin Date Effective End Date [employer] [facility] [place] Medicaid [id number] 2018 U nknown Family History Family History data not found Social History Social History Element Codes Description Effective Dates Marital status Unknown 06/28/[address]: [id number] Currently smokes tobacco 05/2013 Allergies, Adverse Reactions, [...] Fill Instructions cyclobenzaprine 10 mg tablet RxNorm: 808785 TAKE ONE TA BLET BY MOUTH THREE TIMES A DAY NEEDED 04/11/2020 No Stop Date Active potassium chloride ER 20 mEq tablet,extended release RxNorm: 262962 TAKE ONE TABLET BY MOUTH DAILY 04/11/2020 No Stop Date Active ProAir HFA 90 mcg/actuation aerosol inhaler RxNorm: 759317 INHALE ONE PUFF BY MOUTH EVERY 4 HOURS FOR WHEEZING OR FOR SHORTNESS OF BREATH 04/11/2020 No Stop Date Active Daliresp 500 mcg tablet RxNorm: 2529742 TAKE ONE TABLET BY MOUTH DAILY 04/11/2020 No Stop Date Active hydroxyzine HCl 50 mg tablet RxNorm: 424629 TAKE ONE TA BLET BY MOUTH TWICE A DAY WITH MORPHINE. *REPLACES BENADRYL* 04/11/2020 No Stop Date Active fluoxetine 20 mg capsule RxNorm: 821008 1 Capsule(s) Oral QD 201905/10/2020 Active fluoxetine 20 mg capsule RxNorm: 340974 1 Capsule(s) Oral QD 201904/09/2020 Inactive levothyroxine 25 mcg tablet RxNorm: 338516 TAKE ONE TAB LET BY MOUTH EVERY MORNING 04/09/2020 No Stop Date Active metformin 500 mg tablet RxNorm: 722774 1 Tablet(s) Oral QD 04/09/20 20 07/08/2020 Active MS Contin 200 mg tablet,extended release RxNorm: 054023 1 Tablet(s) Oral two times a day 03/19/2020 04/17/2020 Active Relistor 150 mg tablet RxNorm: 2132793 TAKE THREE TABLETS BY BENOIT TH DAILY 03/13/2020 No Stop Date Active furosemide 40 mg tablet RxNorm: 329413 TAKE ONE TABLET BY MOUTH EVERY MORNING 03/13/2020 No Stop Date Active cyclobenzaprine 10 mg tablet RxNorm: 643512 TAKE ONE TA BLET BY MOUTH THREE TIMES A DAY NEEDED 03/13/2020 04/10/2020 Inactive prednisone 1 mg tablet RxNorm: 515145 1 Tablet(s) Oral two times a day to take with hydroxyzine 03/12/2020 No Stop Date Active hydroxyzine HCl 50 mg tablet RxNorm: 886400 1 Tablet(s) Oral two times a day to take with morphine--replaces benadryl 03/12/2020 04/10/2020 Inactive prednisolone 5 mg tablet RxNorm: 936630 1 Tablet(s) Oral two ti mes a day 02/22/2020 03/23/2020 Inactive prednisolone 5 mg tablet RxNorm: 063223 1 Tablet(s) Oral two ti mes a day 02/22/2020 02/21/2020 Inactive Symbicort 160 mcg-4.5 mcg/actuation HFA aerosol inhaler RxNo rm: 5324652 INHALE TWO PUFFS BY MOUTH TWICE A DAY 02/19/2020 No Stop Date Active Daliresp 500 mcg tablet RxNorm: 2062529 TAKE ONE TABLET BY MOUTH DAILY 02/19/2020 No Stop Date Active prednisone 20 mg tablet RxNorm: 337921 1 Tablet(s) Oral two yumi es a day 02/13/2020 02/20/2020 Inactive oxycodone 30 mg tablet RxNorm: 0405387 1 Tablet(s) Oral four times a day replaces MS Contin 02/13/2020 02/22/2020 Inactive levothyroxine 25 mcg tablet RxNorm: 275932 TAKE ONE TAB LET BY MOUTH EVERY MORNING 02/09/2020 04/08/2020 Inactive MS Contin 200 mg tablet,extended release RxNorm: 563529 1 Tablet(s) Oral two times a day 02/01/2020 03/01/2020 Inactive Premarin 0.45 mg tablet RxNorm: 277683 TAKE ONE TABLET BY MOUTH DAILY 01/31/2020 No Stop Date Active cyclobenzaprine 10 mg tablet RxNorm: 606691 TAKE ONE TA BLET BY MOUTH THREE TIMES A DAY NEEDED 01/31/2020 03/12/2020 Inactive metformin 500 mg tablet RxNorm: 917350 1 Tablet(s) Oral QD 01/31/2004/08/2020 Inactive gabapentin 300 mg capsule RxNorm: 915351 TAKE ONE CAPSULE BY [facility] TWICE A DAY 01/16/2020 No Stop Date Active potassium chloride ER 20 mEq tablet,extended release RxNorm: 368924 TAKE ONE TABLET BY MOUTH DAILY 01/08/2020 07/05/2020 Active ProAir HFA 90 mcg/actuation aerosol inhaler RxNorm: 766037 INHALE ONE PUFF BY MOUTH EVERY 4 HOURS FOR WHEEZING OR FOR SHORTNESS OF BREATH 01/04/2020 04/10/2020 Inactive metformin 500 mg tablet RxNorm: 130799 1 Tablet(s) Oral QD 01/04/2004/09/2020 Inactive MS Contin 200 mg tablet,extended release RxNorm: 775453 1 Tablet(s) Oral two times a day 01/02/2020 01/31/2020 Inactive Pulmicort 1 mg/2 mL suspension for nebulization RxNorm: 6168 19 USE ONE VIAL VIA NEBULIZER BY MOUTH TWICE A DAY 12/21/2019 No Stop Date Active furosemide 40 mg tablet RxNorm: 161984 TAKE ONE TABLET BY MOUTH EVERY MORNING NEEDED 12/20/2019 03/12/2020 Inactive levothyroxine 25 mcg tablet RxNorm: 491357 TAKE ONE TAB LET BY MOUTH EVERY MORNING 12/20/2019 02/08/2020 Inactive MS Contin 200 mg tablet,extended release RxNorm: 077533 1 Tablet(s) Oral two times a day 12/05/2019 01/01/2020 Inactive Medrol (Aníbal) 4 mg tablets in a dose pack RxNorm: 372793 6 Tablet(s) Oral QD --then as directed 11/30/2019 12/05/2019 Inactive MS Contin 200 mg tablet,extended release RxNorm: 211281 1 Tablet(s) Oral two times a day 11/29/2019 12/04/2019 Inactive cyclobenzaprine 10 mg tablet RxNorm: 914339 TAKE ONE TA BLET BY MOUTH THREE TIMES A DAY NEEDED 11/21/2019 01/30/2020 Inactive MS Contin 200 mg tablet,extended release RxNorm: 053200 1 Tablet(s) Oral two times a day replaces 100mg dose 11/03/2019 11/02/2019 Inactive MS Contin 200 mg tablet,extended release RxNorm: 920022 1 Tablet(s) Oral two times a day replaces 100mg dose 11/03/2019 11/29/2019 Inactive ferrous sulfate 325 mg (65 mg iron) tablet RxNorm: 904092 1 Tab let(s) Oral QD 10/30/2019 No Stop Date Active MS Contin 100 mg tablet,extended release RxNorm: 211268 1 Table t(s) Oral QD 10/30/2019 10/29/2019 Inactive MS Contin 100 mg tablet,extended release RxNorm: 867678 1 Table t(s) Oral QD 10/30/2019 11/02/2019 Inactive pantoprazole 40 mg tablet,delayed release RxNorm: 175459 1 Tabl et(s) Oral QD 10/25/2019 No Stop Date Active Minipress 2 mg capsule RxNorm: 694470 1 Capsule(s) Oral QAM and 3 at bedtime 10/25/2019 No Stop Date Active Lancets, Super Thin RxNorm: 1 Unit Dose Miscellaneous QD 9 11/27/2020 Active Relistor 150 mg tablet RxNorm: 3392203 TAKE THREE TABLETS BY BENOIT TH DAILY 10/25/2019 03/12/2020 Inactive oxycodone 15 mg tablet RxNorm: 7605581 1 Tablet(s) Oral four times a day as needed for pain 10/25/2019 11/28/2019 Inactive metformin 500 mg tablet RxNorm: 028949 1 Tablet(s) Oral QD 10/25/20 19 01/03/2020 Inactive levothyroxine 25 mcg tablet RxNorm: 680391 1 Tablet(s) Oral QAM 02/201912/19/2019 Inactive levothyroxine 25 mcg tablet RxNorm: 479271 1 Tablet(s) Oral QAM 02/201910/24/2019 Inactive MS Contin 100 mg tablet,extended release RxNorm: 468308 1 Tablet(s) Oral two times a day replaces fentanyl 10/25/2019 10/25/2019 Inactive Cymbalta 60 mg capsule,delayed release RxNorm: 506761 1 Capsule (s) Oral QAM 10/25/2019 04/09/2020 Inactive Cymbalta 30 mg capsule,delayed release RxNorm: 575512 1 Capsule (s) Oral QAM 10/25/2019 04/09/2020 Inactive Premarin 0.45 mg tablet RxNorm: 916480 TAKE ONE TABLET BY MOUTH DAILY 10/24/2019 01/30/2020 Inactive Duragesic 100 mcg/hr transdermal patch RxNorm: 064737 2 Application TD Q48H for pain 10/18/2019 10/24/2019 Inactive gabapentin 300 mg capsule RxNorm: 454581 TAKE ONE CAPSULE BY MO UTH TWICE A DAY 10/16/2019 01/15/2020 Inactive cyclobenzaprine 10 mg tablet RxNorm: 550516 TAKE ONE TA BLET BY MOUTH THREE TIMES A DAY NEEDED 09/27/2019 11/20/2019 Inactive Relistor 150 mg tablet RxNorm: 4338458 TAKE THREE TABLETS BY BENOIT TH DAILY 09/25/2019 10/24/2019 Inactive ProAir HFA 90 mcg/actuation aerosol inhaler RxNorm: 176825 INHALE ONE PUFF BY MOUTH EVERY 4 HOURS FOR WHEEZING OR FOR SHORTNESS OF BREATH 09/25/2019 01/03/2020 Inactive furosemide 40 mg tablet RxNorm: 348903 1 Tablet(s) Oral QAM as needed 09/25/2019 09/25/2019 Inactive oxycodone 15 mg tablet RxNorm: 5850009 1 Tablet(s) PO QID as nee ded for pain 09/21/2019 10/24/2019 Inactive Duragesic 100 mcg/hr transdermal patch RxNorm: 380477 2 Application TD Q48H for pain 09/19/2019 10/17/2019 Inactive Daliresp 500 mcg tablet RxNorm: 1338914 1 Tablet(s) Oral QD 019 02/18/2020 Inactive Relistor 150 mg tablet RxNorm: 2302931 TAKE THREE TABLETS BY BENOIT TH DAILY 07/25/2019 07/30/2019 Inactive cyclobenzaprine 10 mg tablet RxNorm: 464161 TAKE ONE TA BLET BY MOUTH THREE TIMES A DAY NEEDED 07/25/2019 09/22/2019 Inactive potassium chloride ER 20 mEq tablet,extended release RxNorm: 146962 TAKE ONE TABLET BY MOUTH DAILY 07/25/2019 01/07/2020 Inactive fluoxetine 40 mg capsule RxNorm: 347926 TAKE ONE CAPSULE BY BENOIT TH EVERY MORNING 07/11/2019 10/24/2019 Inactive Medrol (Aníbal) 4 mg tablets in a dose pack RxNorm: 571823 6 Tablet(s) PO QD --then as directed 07/10/2019 07/15/2019 Inactive omeprazole 40 mg capsule,delayed release RxNorm: 667613 1 Capsule(s) PO QD for stomach TAKE ONE CAPSULE BY MOUTH DAILY 07/10/2019 10/24/2019 Inactive Augmentin 875 mg-125 mg tablet RxNorm: 288039 1 Tablet(s) PO BID 07/16/2019 Inactive Trulicity 0.75 mg/0.5 mL subcutaneous pen injector RxNorm: 1 898232 0.75 Milliliter(s) SQ weekly 07/05/2019 10/24/2019 Inactive Compazine 10 mg tablet RxNorm: 482566 TAKE ONE TABLET B Y MOUTH FOUR TIMES A DAY NEEDED FOR NAUSEA 06/20/2019 07/19/2019 Inactive ProAir HFA 90 mcg/actuation aerosol inhaler RxNorm: 362374 INHALE ONE PUFF BY MOUTH EVERY 4 HOURS FOR WHEEZING OR FOR SHORTNESS OF BREATH 06/20/2019 06/23/2019 Inactive Daliresp 500 mcg tablet RxNorm: 8040500 TAKE ONE TABLET BY MOUTH DAILY 06/12/2019 09/10/2019 Inactive vqjdxeog-rjjhnlxjv-boiqhezqx 3.5 mg/mL-10,000 unit/mL- 1 % ear solution RxNorm: 360816 4 Drop(s) otic (ear) TID to left ear 06/05/2019 10/24/2019 Inac tive furosemide 40 mg tablet RxNorm: 779065 TAKE ONE TABLET BY MOUTH EVERY MORNING 05/26/2019 07/09/2019 Inactive Duragesic 100 mcg/hr transdermal patch RxNorm: 505131 2 Application TD Q48H for pain 05/16/2019 06/14/2019 Inactive oxycodone 15 mg tablet RxNorm: 8899779 1 Tablet(s) PO QID as nee ded for pain 05/10/2019 09/20/2019 Inactive doxycycline hyclate 100 mg capsule RxNorm: 0355027 1 Capsule(s) PO BID 05/03/2019 05/12/2019 Inactive prednisone 20 mg tablet RxNorm: 550656 1 Tablet(s) PO T ID for 3 days then 1 po BID for 3 days then one daily for 3 days 05/03/2019 07/11/2019 Inactiv e Ozempic 0.25 mg or 0.5 mg (2 mg/1.5 mL) subcutaneous p en injector RxNorm: 9834879 0.5 Milligram(s) SQ QW 05/03/2019 07/09/2019 Inactive fluconazole 100 mg tablet RxNorm: 190802 1 Tablet(s) PO QD 05/03/2005/07/2019 Inactive Premarin 0.45 mg tablet RxNorm: 259927 TAKE ONE TABLET BY MOUTH DAILY 05/03/2019 10/23/2019 Inactive potassium chloride ER 20 mEq tablet,extended release RxNorm: 663562 1 Tablet(s) PO QD 04/27/2019 07/25/2019 Inactive potassium chloride ER 20 mEq tablet,extended release RxNorm: 093806 1 Tablet(s) PO QD 04/25/2019 04/26/2019 Inactive Compazine 10 mg tablet RxNorm: 750880 1 Tablet(s) PO QID as nee ded for nausea 04/25/2019 05/04/2019 Inactive ProAir HFA 90 mcg/actuation aerosol inhaler RxNorm: 445986 INHALE ONE PUFF BY MOUTH EVERY 4 HOURS FOR WHEEZING OR FOR SHORTNESS OF BREATH 04/12/2019 06/10/2019 Inactive Medrol (Aníbal) 4 mg tablets in a dose pack RxNorm: 963516 6 Tablet(s) PO QD --then as directed 04/11/2019 04/16/2019 Inactive Symbicort 160 mcg-4.5 mcg/actuation HFA aerosol inhaler RxNo rm: 9040003 2 Puff(s) INH BID 04/10/2019 10/06/2019 Inactive levothyroxine 50 mcg tablet RxNorm: 848751 1 Tablet(s) PO QD 201810/24/2019 Inactive gabapentin 300 mg capsule RxNorm: 700586 1 Capsule(s) PO BID 201810/02/2019 Inactive Symbicort 160 mcg-4.5 mcg/actuation HFA aerosol inhaler RxNo rm: 1154455 2 Puff(s) INH BID 04/06/2019 04/09/2019 Inactive oxycodone 15 mg tablet RxNorm: 4377764 1 Tablet(s) PO QID as nee ded for pain 04/05/2019 05/09/2019 Inactive levothyroxine 50 mcg tablet RxNorm: 257473 1 Tablet(s) PO QD 201804/09/2019 Inactive furosemide 40 mg tablet RxNorm: 098069 TAKE ONE TABLET BY MOUTH EVERY MORNING 03/21/2019 04/19/2019 Inactive levothyroxine 50 mcg tablet RxNorm: 048293 TAKE ONE TABLET BY M OUTH DAILY 03/21/2019 03/27/2019 Inactive Duragesic 100 mcg/hr transdermal patch RxNorm: 768659 2 Application TD Q48H for pain 03/13/2019 04/11/2019 Inactive oxycodone 15 mg tablet RxNorm: 4697430 1 Tablet(s) PO QID as nee ded for pain 03/06/2019 04/04/2019 Inactive Relistor 150 mg tablet RxNorm: 8270124 3 Tablet(s) PO QD 02/28/2019 0 05/28/2019 Inactive cyclobenzaprine 10 mg tablet RxNorm: 929963 1 Tablet(s) PO TID as needed 02/28/2019 05/28/2019 Inactive phentermine 37.5 mg tablet RxNorm: 886828 1 Tablet(s) PO QAM 201803/15/2019 Inactive Duragesic 100 mcg/hr transdermal patch RxNorm: 637932 2 Application TD Q48H for pain 02/09/2019 03/10/2019 Inactive Daliresp 500 mcg tablet RxNorm: 6737108 TAKE ONE TABLET BY MOUTH DAILY 01/31/2019 05/30/2019 Inactive Premarin 0.45 mg tablet RxNorm: 369502 1 Tablet(s) PO QD 01/31/2019 0 04/30/2019 Inactive fluoxetine 40 mg capsule RxNorm: 931921 Capsule(s) TAKE ONE CAPSULE BY MOUTH EVERY MORNING 01/31/2019 04/30/2019 Inactive levothyroxine 50 mcg tablet RxNorm: 958244 1 Tablet(s) PO QD 201804/10/2019 Inactive follow up in 3 weeks levothyroxine 50 mcg tablet RxNorm: 805065 1 Tablet(s) PO QD 201801/25/2019 Inactive follow up in 3 weeks potassium chloride ER 20 mEq tablet,extended release RxNorm: 527303 2 Tablet(s) PO BID 01/23/2019 01/08/2020 Inactive Synthroid 50 mcg tablet RxNorm: 673388 TAKE ONE TABLET BY MOUTH DAILY 01/16/2019 10/24/2019 Inactive potassium chloride ER 20 mEq tablet,extended release RxNorm: 012062 2 Tablet(s) PO BID 01/04/2019 01/22/2019 Inactive ProAir HFA 90 mcg/actuation aerosol inhaler RxNorm: 985196 INHALE ONE PUFF BY MOUTH EVERY 4 HOURS FOR WHEEZING OR SHORTNESS OF BREATH 01/04/201902/20 Inactive Request already responded to by other me ans (e.g. phone or fax) ProAir HFA 90 mcg/actuation aerosol inhaler RxNorm: 9868276 INHALE ONE PUFF BY MOUTH EVERY 4 HOURS FOR WHEEZING OR SHORTNESS OF BREATH 01/02/201912/23 Inactive gabapentin 300 mg capsule RxNorm: 169363 TAKE ONE CAPSULE BY MO UTH TWICE A DAY 12/30/2018 04/06/2019 Inactive furosemide 40 mg tablet RxNorm: 586310 1 Tablet(s) PO QAM 12/26/2018 02/23/2019 Inactive Compazine 10 mg tablet RxNorm: 215568 1 Tablet(s) PO QID as nee ded for nausea 12/07/2018 12/16/2018 Inactive metolazone 2.5 mg tablet RxNorm: 866112 TAKE ONE TABLET BY MOUT H EVERY MORNING 12/05/2018 01/03/2019 Inactive metformin ER 500 mg tablet,extended release 24 hr RxNorm: 86 0975 TAKE ONE TABLET BY MOUTH DAILY 12/05/2018 01/31/2020 Inactive Synthroid 50 mcg tablet RxNorm: 481630 1 Tablet(s) PO QD 11/25/2018 0 01/03/2019 Inactive DC any other synthroid strengths. Should be 50mcg only cyclobenzaprine 10 mg tablet RxNorm: 244250 TAKE ONE TA BLET BY MOUTH THREE TIMES A DAY NEEDED 11/09/2018 02/06/2019 Inactive metolazone 2.5 mg tablet RxNorm: 235537 1 Tablet(s) PO QAM repl aces 5mg dose 11/02/2018 12/01/2018 Inactive potassium chloride ER 20 mEq tablet,extended release RxNorm: 106878 2 Tablet(s) PO QD 2018 01/02/2019 Inactive Compazine 10 mg tablet RxNorm: 303643 1 Tablet(s) PO QID as nee ded for nausea 10/18/2018 12/07/2018 Inactive furosemide 40 mg tablet RxNorm: 424251 1 Tablet(s) PO QAM 10/12/2018 12/10/2018 Inactive ondansetron 8 mg disintegrating tablet RxNorm: 522251 1 Tablet(s) PO Q6H as needed 10/11/2018 10/17/2018 Inactive scopolamine 1 mg over 3 days transdermal patch RxNorm: 88760 2 1 Application TD behind ear. Take off after three days 10/11/2018 01/02/2019 Inactive furosemide 40 mg tablet RxNorm: 244474 1 Tablet(s) PO QAM 10/10/2018 12/26/2018 Inactive metolazone 5 mg tablet RxNorm: 039290 1 Tablet(s) PO QAM 10/06/2018 1 01/03/2018 Inactive metolazone 5 mg tablet RxNorm: 359459 1 Tablet(s) PO QAM 10/06/2018 1 12/05/2017 Inactive Xtampza ER 36 mg capsule sprinkle RxNorm: 8994654 1 Capsule(s) P O BID 10/05/2018 01/02/2019 Inactive Xtampza ER 36 mg capsule sprinkle RxNorm: 7665014 1 Capsule(s) P O BID 10/05/2018 02/12/2019 Inactive omeprazole 40 mg capsule,delayed release RxNorm: 988410 TAKE ONE CAPSULE BY MOUTH DAILY 10/03/2018 12/31/2018 Inactive Duragesic 100 mcg/hr transdermal patch RxNorm: 803981 2 Application TD Q48H for pain 09/30/2018 10/29/2018 Inactive Synthroid 50 mcg tablet RxNorm: 621046 1 Tablet(s) PO QD 09/29/2018 0 11/25/2018 Inactive DC any other synthroid strengths. Should be 50mcg only Synthroid 50 mcg tablet RxNorm: 585284 1 Tablet(s) PO QD 09/29/2018 1 11/28/2017 Inactive furosemide 40 mg tablet RxNorm: 411531 2 Tablet(s) PO Q AM for 1 week then every other day for 2 weeks 09/27/2018 10/12/2018 Inactive fluoxetine 40 mg capsule RxNorm: 645652 2 Capsule(s) PO QD 09/27/20 18 10/17/2018 Inactive potassium chloride ER 20 mEq tablet,extended release RxNorm: 888346 2 Tablet(s) PO QD for 1 week then every other day for 2 weeks 09/27/2018 2018 Inactive ProAir HFA 90 mcg/actuation aerosol inhaler RxNorm: 9431944 INHALE ONE PUFF BY MOUTH EVERY 4 HOURS FOR WHEEZING OR SHORTNESS OF BREATH 09/26/201811/23 Inactive Synthroid 75 mcg tablet RxNorm: 559861 1 Tablet(s) PO QD 09/09/2018 1 Inactive Synthroid 75 mcg tablet RxNorm: 718318 1 Tablet(s) PO QD 09/09/2018 1 11/28/2017 Inactive furosemide 40 mg tablet RxNorm: 716127 1 Tablet(s) PO QD 09/06/2018 1 Inactive potassium chloride ER 20 mEq tablet,extended release RxNorm: 649170 1 Tablet(s) PO QD 09/06/2018 09/19/2018 Inactive Duragesic 100 mcg/hr transdermal patch RxNorm: 850814 2 Application TD Q48H for pain 08/30/2018 09/28/2018 Inactive gabapentin 300 mg capsule RxNorm: 246353 TAKE ONE CAPSULE BY [facility] TWICE A DAY 08/23/2018 12/20/2018 Inactive Daliresp 500 mcg tablet RxNorm: 3287810 TAKE ONE TABLET BY MOUTH DAILY 08/23/2018 01/19/2019 Inactive Pulmicort 1 mg/2 mL suspension for nebulization RxNorm: 6168 19 USE ONE VIAL VIA NEBULIZER BY MOUTH TWICE A DAY 08/23/2018 07/11/2019 Inactive Synthroid 88 mcg tablet RxNorm: 044521 1 Tablet(s) PO QD 08/19/2018 Inactive Medrol (Aníbal) 4 mg tablets in a dose pack RxNorm: 284767 Tablet(s) PO take as directed 08/16/2018 09/05/2018 Inactive Relistor 150 mg tablet RxNorm: 5304250 3 Tablet(s) PO QD 08/16/2018 1 Inactive Zithromax Z-Aníbal 250 mg tablet RxNorm: 458713 Tablet(s) PO take as directed 08/16/2018 09/05/2018 Inactive cyclobenzaprine 10 mg tablet RxNorm: 572666 1 Tablet(s) PO TID as needed 08/16/2018 11/08/2018 Inactive Synthroid 88 mcg tablet RxNorm: 691166 1 Tablet(s) PO Q D NEEDS UPDATED LABS BEFORE FURTHER REFILLS 08/08/2018 08/19/2018 Inactive Premarin 0.45 mg tablet RxNorm: 196489 1 Tablet(s) PO QD 08/03/2018 0 01/31/2019 Inactive fluoxetine 20 mg capsule RxNorm: 202434 TAKE ONE CAPSULE BY BENOIT TH DAILY 08/03/2018 09/26/2018 Inactive Xtampza ER 36 mg capsule sprinkle RxNorm: 6563165 1 Capsule(s) P O BID 08/03/2018 09/01/2018 Inactive metformin ER 500 mg tablet,extended release 24 hr RxNorm: 86 0975 1 Tablet(s) PO QD 08/03/2018 10/31/2018 Inactive Symbicort 160 mcg-4.5 mcg/actuation HFA aerosol inhaler RxNo rm: 3105590 2 Puff(s) INH BID 08/03/2018 01/29/2019 Inactive Duragesic 100 mcg/hr transdermal patch RxNorm: 635494 2 Application TD Q48H for pain 07/29/2018 08/27/2018 Inactive ProAir HFA 90 mcg/actuation aerosol inhaler RxNorm: 717558 INHALE TWO PUFFS BY MOUTH EVERY 4 HOURS FOR WHEEZING OR SHORTNESS OF BREATH 07/27/201802/2018 Inactive Relistor 150 mg tablet RxNorm: 8582402 3 Tablet(s) PO QD 07/20/2018 0 08/15/2018 Inactive metformin ER 500 mg tablet,extended release 24 hr RxNorm: 86 0975 TAKE ONE TABLET BY MOUTH DAILY 07/08/2018 08/02/2018 Inactive fluoxetine 40 mg capsule RxNorm: 017466 TAKE ONE CAPSULE BY BENOIT TH EVERY MORNING 07/08/2018 10/05/2018 Inactive Xtampza ER 18 mg capsule sprinkle RxNorm: 8777958 1 Capsule(s) P O BID 07/08/2018 08/02/2018 Inactive Relistor 150 mg tablet RxNorm: 9323426 3 Tablet(s) PO QD 07/08/2018 0 07/12/2018 Inactive Synthroid 88 mcg tablet RxNorm: 945911 1 Tablet(s) PO Q D NEEDS UPDATED LABS BEFORE FURTHER REFILLS 06/23/2018 07/07/2018 Inactive fluoxetine 40 mg capsule RxNorm: 622428 TAKE ONE CAPSULE BY BENOIT EVERY MORNING 06/15/2018 09/26/2018 Inactive orphenadrine citrate ER 100 mg tablet,extended release RxNor m: 612728 TAKE ONE TABLET BY MOUTH TWICE A DAY FOR MUSCLE SPASM 06/15/2018 08/15/2018 [place] Duragesic 100 mcg/hr transdermal patch RxNorm: 072006 2 Application TD Q48H for pain 05/30/2018 06/28/2018 Inactive ProAir HFA 90 mcg/actuation aerosol inhaler RxNorm: 543729 INHALE TWO PUFFS BY MOUTH EVERY 4 HOURS FOR WHEEZING OR SHORTNESS OF BREATH 05/19/201803/2018 Inactive Chantix Continuing Month Box 1 mg tablet RxNorm: 223666 TAKE ONE TABLET BY MOUTH TWICE A DAY 05/19/2018 08/15/2018 Inactive oxycodone 10 mg tablet RxNorm: 7528107 1-2 Tablet(s) PO QID as n eeded for pain 05/19/2018 07/07/2018 Inactive gabapentin 300 mg capsule RxNorm: 348681 TAKE ONE CAPSULE BY [facility] TWICE A DAY 05/18/2018 07/16/2018 Inactive ProAir HFA 90 mcg/actuation aerosol inhaler RxNorm: 972697 INHALE TWO PUFFS BY MOUTH EVERY 4 HOURS FOR WHEEZING OR SHORTNESS OF BREATH 05/04/201804/23 Inactive Augmentin 500 mg-125 mg tablet RxNorm: 291285 1 Tablet(s) PO BID 05/03/2018 Inactive oxycodone 10 mg tablet RxNorm: 8788559 1-2 Tablet(s) PO QID as n eeded for pain 04/21/2018 05/18/2018 Inactive Synthroid 88 mcg tablet RxNorm: 982957 1 Tablet(s) PO QD 04/15/2018 0 08/08/2018 Inactive Symbicort 160 mcg-4.5 mcg/actuation HFA aerosol inhaler RxNo rm: 8945614 2 Puff(s) INH BID 04/15/2018 04/10/2019 Inactive Premarin 0.45 mg tablet RxNorm: 008219 1 Tablet(s) PO QD 04/15/2018 0 08/03/2018 Inactive ProAir HFA 90 mcg/actuation aerosol inhaler RxNorm: 453685 2 Puff(s) INH Q4H prn for wheezing or shortness of breath 04/15/2018 05/03/2018 Inactive metformin ER 500 mg tablet,extended release 24 hr RxNorm: 86 0975 1 Tablet(s) PO QD 04/11/2018 07/07/2018 Inactive omeprazole 40 mg capsule,delayed release RxNorm: 331034 TAKE ONE CAPSULE BY MOUTH DAILY 04/10/2018 06/08/2018 Inactive Synthroid 88 mcg tablet RxNorm: 343712 1 Tablet(s) PO QD 04/04/2018 0 04/14/2018 Inactive Synthroid 88 mcg tablet RxNorm: 954675 1 Tablet(s) PO QD 04/04/2018 0 04/03/2018 Inactive orphenadrine citrate ER 100 mg tablet,extended release RxNor m: 533083 1 Tablet(s) PO BID for muscle spasm 04/04/2018 05/03/2018 Inactive metformin ER 500 mg tablet,extended release 24 hr RxNorm: 86 0975 1 Tablet(s) PO QD NEEDS UPDATED LABS 03/31/2018 04/11/2018 Inactive doxycycline hyclate 100 mg capsule RxNorm: 1332955 1 Capsule(s) PO BID 03/31/2018 04/09/2018 Inactive prednisone 20 mg tablet RxNorm: 895543 3 Tablet(s) PO T ID for 3 days then 1 po BID for 3 days then one daily for 3 days 03/31/2018 07/06/2018 Inactiv e Chantix Continuing Month Box 1 mg tablet RxNorm: 505046 TAKE ONE TABLET BY MOUTH TWICE A DAY 03/25/2018 03/30/2018 Inactive oxycodone 10 mg tablet RxNorm: 0925402 1-2 Tablet(s) PO QID as n eeded for pain 03/21/2018 04/20/2018 Inactive Daliresp 500 mcg tablet RxNorm: 2442799 1 Tablet(s) PO QD 03/15/2018 08/22/2018 Inactive metformin ER 500 mg tablet,extended release 24 hr RxNorm: 86 0975 1 Tablet(s) PO QD NEEDS UPDATED LABS 03/14/2018 03/31/2018 Inactive nystatin 100,000 unit/mL oral suspension RxNorm: 322660 5 [place]io liter(s) PO QID 03/02/2018 03/15/2018 Inactive nystatin 100,000 unit/mL oral suspension RxNorm: 603850 5 Chio liter(s) PO QID 03/02/2018 03/01/2018 Inactive oxycodone 10 mg tablet RxNorm: 8198074 1-2 Tablet(s) PO QID as n eeded for pain 02/16/2018 03/20/2018 Inactive fluoxetine 20 mg capsule RxNorm: 630028 1 Capsule(s) PO QD 02/15/20 18 08/02/2018 Inactive metformin ER 500 mg tablet,extended release 24 hr RxNorm: 86 0975 1 Tablet(s) PO QD Needs updated labs 02/14/2018 03/14/2018 Inactive cefdinir 300 mg capsule RxNorm: 725423 1 Capsule(s) PO BID 01/27/20 18 02/04/2018 Inactive orphenadrine citrate ER 100 mg tablet,extended release RxNor m: 298166 1 Tablet(s) PO BID for muscle spasm 01/26/2018 04/04/2018 Inactive gabapentin 300 mg capsule RxNorm: 952704 1 Capsule(s) PO BID 201704/17/2018 Inactive oxycodone 10 mg tablet RxNorm: 3390051 1-2 Tablet(s) PO QID as n eeded for pain 01/17/2018 02/15/2018 Inactive Duragesic 100 mcg/hr transdermal patch RxNorm: 335287 2 Application TD Q48H for pain 01/17/2018 02/15/2018 Inactive gabapentin 300 mg capsule RxNorm: 099165 TAKE ONE CAPSULE BY MO UTH TWICE A DAY 12/20/2017 01/18/2018 Inactive fluoxetine 40 mg capsule RxNorm: 263195 TAKE ONE CAPSULE BY BENOIT TH EVERY MORNING 12/15/2017 03/14/2018 Inactive [employer] Ultra Test strips RxNorm: TEST DAILY 11/04/2017 02/01/2018 Inactive gabapentin 300 mg capsule RxNorm: 395815 1 Capsule(s) P O TID replaces BID dosing 10/26/2017 02/22/2018 Inactive oxycodone 10 mg tablet RxNorm: 3183886 1-2 Tablet(s) PO QID as n eeded for pain 10/18/2017 01/16/2018 Inactive Duragesic 100 mcg/hr transdermal patch RxNorm: 178633 2 Application TD Q48H for pain 10/18/2017 11/16/2017 Inactive gabapentin 300 mg capsule RxNorm: 117743 1 Capsule(s) PO BID 201610/25/2017 Inactive Abilify 5 mg tablet RxNorm: 455165 1 Tablet(s) PO QAM 09/23/201702/2017 Inactive gabapentin 300 mg capsule RxNorm: 990744 1 Capsule(s) PO BID 201610/17/2017 Inactive oxycodone 10 mg tablet RxNorm: 1662083 1-2 Tablet(s) PO QID as n eeded for pain 09/15/2017 10/17/2017 Inactive Duragesic 100 mcg/hr transdermal patch RxNorm: 057556 2 Application TD Q48H for pain 09/15/2017 10/14/2017 Inactive Duragesic 100 mcg/hr transdermal patch RxNorm: 879675 2 Application TD Q48H for pain 09/15/2017 10/24/2019 Inactive oxycodone 10 mg tablet RxNorm: 1579743 1-2 Tablet(s) PO QID as n eeded for pain 09/15/2017 08/15/2018 Inactive Daliresp 500 mcg tablet RxNorm: 0693686 1 Tablet(s) PO QD 09/06/2017 03/15/2018 Inactive Ventolin HFA 90 mcg/actuation aerosol inhaler RxNorm: 832568 2 Puff(s) INH Q4H as needed 09/02/2017 05/19/2018 Inactive oxycodone 10 mg tablet RxNorm: 5514791 1-2 Tablet(s) PO QID as n eeded for pain 08/17/2017 09/14/2017 Inactive Duragesic 100 mcg/hr transdermal patch RxNorm: 262200 2 Application TD Q48H for pain 08/17/2017 09/14/2017 Inactive fluoxetine 40 mg capsule RxNorm: 827700 Capsule(s) TAKE ONE CAPSULE BY MOUTH EVERY MORNING 08/17/2017 12/14/2017 Inactive Pulmicort 1 mg/2 mL suspension for nebulization RxNorm: 6168 19 1 Unit Dose INH BID Dx: COPD (J44.9) 08/16/2017 08/22/2018 Inactive gabapentin 300 mg capsule RxNorm: 673618 1 Capsule(s) PO QHS 201610/18/2017 Inactive fluoxetine 20 mg capsule RxNorm: 616307 1 Capsule(s) PO QD 08/12/20 17 02/14/2018 Inactive Abilify 2 mg tablet RxNorm: 729132 1 Tablet(s) PO QD TA KE ONE TABLET BY MOUTH DAILY 08/12/2017 10/25/2017 Inactive metformin ER 500 mg tablet,extended release 24 hr RxNorm: 86 0975 1 Tablet(s) PO QD 08/10/2017 02/14/2018 Inactive Synthroid 112 mcg tablet RxNorm: 932656 1 Tablet(s) PO QD 08/10/2017 04/15/2018 Inactive oxycodone 10 mg tablet RxNorm: 8349522 1-2 Tablet(s) PO QID as n eeded for pain 07/19/2017 08/16/2017 Inactive Duragesic 100 mcg/hr transdermal patch RxNorm: 756327 2 Application TD Q48H for pain 07/19/2017 08/16/2017 Inactive Ventolin HFA 90 mcg/actuation aerosol inhaler RxNorm: 287137 2 Puff(s) INH Q4H as needed 07/12/2017 09/02/2017 Inactive Abilify 2 mg tablet RxNorm: 449930 1 Tablet(s) PO QD TA KE ONE TABLET BY MOUTH DAILY 07/06/2017 08/11/2017 Inactive gabapentin 800 mg tablet RxNorm: 993557 1 Tablet(s) PO TID 06/22/2007/05/2017 Inactive Chantix Starting Month Box 0.5 mg (11)-1 mg (42) table ts in dose pack RxNorm: 241612 TAKE BY MOUTH INSTRUCTED - PER PACKAGE INSTRUCTIONS 06/0707/04/2017 Inactive Ventolin HFA 90 mcg/actuation aerosol inhaler RxNorm: 504875 2 Puff(s) INH Q4H as needed 05/26/2017 07/12/2017 Inactive Duragesic 100 mcg/hr transdermal patch RxNorm: 140728 2 Application TD Q48H for pain 05/19/2017 06/17/2017 Inactive oxycodone 10 mg tablet RxNorm: 7719425 1-2 Tablet(s) PO QID as n eeded for pain 05/19/2017 07/18/2017 Inactive Abilify 2 mg tablet RxNorm: 213204 TAKE ONE TABLET BY MOUTH DAILY 0 05/10/2017 07/05/2017 Inactive Synthroid 112 mcg tablet RxNorm: 391093 1 Tablet(s) PO QD 05/06/2017 08/10/2017 Inactive metformin ER 500 mg tablet,extended release 24 hr RxNorm: 86 0975 1 Tablet(s) PO QD 05/06/2017 08/10/2017 Inactive Topamax 100 mg tablet RxNorm: 674802 1 Tablet(s) PO QHS 05/06/2017 Inactive Premarin 0.45 mg tablet RxNorm: 930278 1 Tablet(s) PO QD 05/06/2017 0 04/15/2018 Inactive orphenadrine citrate ER 100 mg tablet,extended release RxNor m: 735086 1 Tablet(s) PO TID for muscle spasm--replaces methocarbamol 04/29/2017 Inactive oxycodone 10 mg tablet RxNorm: 6146268 1-2 Tablet(s) PO QID as n eeded for pain 04/21/2017 05/18/2017 Inactive Duragesic 100 mcg/hr transdermal patch RxNorm: 709326 2 Application TD Q48H for pain 04/21/2017 05/18/2017 Inactive fluoxetine 40 mg capsule RxNorm: 019417 Capsule(s) TAKE ONE CAPSULE BY MOUTH EVERY MORNING 04/20/2017 08/17/2017 Inactive Ventolin HFA 90 mcg/actuation aerosol inhaler RxNorm: 948541 2 Puff(s) INH Q4H as needed 04/05/2017 05/26/2017 Inactive Symbicort 160 mcg-4.5 mcg/actuation HFA aerosol inhaler RxNo rm: 8205767 2 Puff(s) INH BID 03/30/2017 04/15/2018 Inactive Spiriva with HandiHaler 18 mcg and inhalation capsules RxNor m: 410426 1 Capsule(s) INH QD USING HANDIHALER 03/30/2017 02/12/2019 Inactive Duragesic 100 mcg/hr transdermal patch RxNorm: 484990 2 Application TD Q48H for pain 03/18/2017 04/16/2017 Inactive oxycodone 10 mg tablet RxNorm: 8856658 1-2 Tablet(s) PO QID as n eeded for pain 03/18/2017 04/20/2017 Inactive metformin ER 500 mg tablet,extended release 24 hr RxNorm: 86 0975 Tablet(s) TAKE ONE TABLET BY MOUTH DAILY 03/01/2017 05/06/2017 Inactive Premarin 0.45 mg tablet RxNorm: 120290 Tablet(s) TAKE ONE TABLE T BY MOUTH DAILY 03/01/2017 05/06/2017 Inactive Synthroid 112 mcg tablet RxNorm: 786840 Tablet(s) TAKE ONE TABLET BY MOUTH DAILY 03/01/2017 05/06/2017 Inactive Daliresp 500 mcg tablet RxNorm: 4965276 1 Tablet(s) PO QD 03/01/2017 09/06/2017 Inactive 16.2 mg-0.1037 mg-0.0194 mg tablet RxNorm: 5329940 Tablet(s) PO PRN for gas and cramping 02/23/2017 04/28/2017 Inactive TAKE TWO TABLET S BY MOUTH THREE TIMES A DAY NEEDED FOR GAS AND CRAMPING gabapentin 800 mg tablet RxNorm: 818847 1 Tablet(s) PO TID repl aces 600mg 02/23/2017 04/28/2017 Inactive Duragesic 100 mcg/hr transdermal patch RxNorm: 909008 2 Application TD Q48H for pain 02/17/2017 03/17/2017 Inactive fluoxetine 20 mg capsule RxNorm: 846943 1 Capsule(s) PO QD 02/18/20 17 08/12/2017 Inactive oxycodone 20 mg tablet RxNorm: 5164583 1 Tablet(s) PO QID as nee ded for pain 02/17/2017 03/17/2017 Inactive Ventolin HFA 90 mcg/actuation aerosol inhaler RxNorm: 377263 INHALE TWO PUFFS BY MOUTH EVERY 4 HOURS NEEDED 02/15/2017 04/05/2017 Inactive Silvadene 1 % topical cream RxNorm: 176078 1 Application TOP BI D to burn area 02/01/2017 09/22/2017 Inactive Topamax 100 mg tablet RxNorm: 658560 TAKE ONE TABLET BY MOUTH EVERY NIGHT AT BEDTIME 01/29/2017 05/06/2017 Inactive Chantix Starting Month Box 0.5 mg (11)-1 mg (42) table ts in dose pack RxNorm: 836003 Tablet(s) PO as directed 01/29/2017 06/01/2017 Inactive Abilify 2 mg tablet RxNorm: 969856 TAKE ONE TABLET BY MOUTH DAILY 0 01/26/2017 04/25/2017 Inactive Chantix Starting Month Box 0.5 mg (11)-1 mg (42) table ts in dose pack RxNorm: 090351 Tablet(s) PO as directed 01/20/2017 01/28/2017 Inactive gabapentin 600 mg tablet RxNorm: 695419 1 Tablet(s) PO TID 01/21/20 17 02/22/2017 Inactive Chantix Continuing Month Box 1 mg tablet RxNorm: 647650 1 Table t(s) PO BID 12/31/2016 06/01/2017 Inactive Spiriva with HandiHaler 18 mcg and inhalation capsules RxNor m: 944652 INHALE THE ENTIRE CONTENTS OF 1 CAPSULE ONCE A DAY USING HANDIHALER 12/31/201607/2017 Inactive Synthroid 112 mcg tablet RxNorm: 029014 TAKE ONE TABLET BY MOUT H DAILY 12/30/2016 03/01/2017 Inactive metformin ER 500 mg tablet,extended release 24 hr RxNorm: 86 0975 TAKE ONE TABLET BY MOUTH DAILY 12/30/2016 03/01/2017 Inactive Premarin 0.45 mg tablet RxNorm: 789955 TAKE ONE TABLET BY MOUTH DAILY 12/30/2016 03/01/2017 Inactive omeprazole 40 mg capsule,delayed release RxNorm: 376674 TAKE ONE CAPSULE BY MOUTH DAILY 12/30/2016 01/25/2018 Inactive Ventolin HFA 90 mcg/actuation aerosol inhaler RxNorm: 093133 INHALE TWO PUFFS BY MOUTH EVERY 4 HOURS NEEDED 12/28/2016 02/13/2017 Inactive fluoxetine 40 mg capsule RxNorm: 361234 TAKE ONE CAPSULE BY BENOIT TH EVERY MORNING 12/15/2016 04/20/2017 Inactive Chantix Continuing Month Box 1 mg tablet RxNorm: 788537 TAKE ONE TABLET BY MOUTH TWICE A DAY 12/04/2016 12/31/2016 Inactive doxycycline hyclate 100 mg capsule RxNorm: 0202439 1 Capsule(s) PO BID 12/01/2016 12/07/2016 Inactive Levaquin 750 mg tablet RxNorm: 808101 1 Tablet(s) PO QD 12/01/2016 Inactive Abilify 2 mg tablet RxNorm: 792966 TAKE ONE TABLET BY MOUTH DAILY 0 11/25/2016 11/30/2016 Inactive Ventolin HFA 90 mcg/actuation aerosol inhaler RxNorm: 390325 INHALE TWO PUFFS BY MOUTH EVERY 4 HOURS NEEDED 11/02/2016 12/19/2016 Inactive Chantix Continuing Month Box 1 mg tablet RxNorm: 307095 Tablet(s) PO as directed 10/30/2016 12/03/2016 Inactive Symbicort 160 mcg-4.5 mcg/actuation HFA aerosol inhaler RxNo rm: 2537710 INHALE TWO PUFFS TWO TIMES A DAY 10/30/2016 03/30/2017 Inactive Abilify 2 mg tablet RxNorm: 362406 1 Tablet(s) PO QD 10/27/201611/24 Inactive amoxicillin 500 mg capsule RxNorm: 349852 1 Capsule(s) PO TID 10/1410/23/2016 Inactive amoxicillin 500 mg capsule RxNorm: 921112 1 Capsule(s) PO TID 10/1410/13/2016 Inactive Synthroid 112 mcg tablet RxNorm: 051442 TAKE ONE TABLET BY MOUT H DAILY 09/28/2016 12/29/2016 Inactive Topamax 100 mg tablet RxNorm: 453196 TAKE ONE TABLET BY MOUTH EVERY NIGHT AT BEDTIME 09/28/2016 01/28/2017 Inactive Premarin 0.45 mg tablet RxNorm: 858007 TAKE ONE TABLET BY MOUTH DAILY 09/28/2016 12/29/2016 Inactive metformin ER 500 mg tablet,extended release 24 hr RxNorm: 86 0975 TAKE ONE TABLET BY MOUTH DAILY 09/28/2016 12/29/2016 Inactive Ventolin HFA 90 mcg/actuation aerosol inhaler RxNorm: 273292 INHALE TWO PUFFS BY MOUTH EVERY 4 HOURS NEEDED 09/22/2016 10/23/2016 Inactive Pulmicort 1 mg/2 mL suspension for nebulization RxNorm: 6168 19 1 Unit Dose INH BID Dx: COPD (J44.9) 09/10/2016 08/16/2017 Inactive Pulmicort 1 mg/2 mL suspension for nebulization RxNorm: 6168 19 1 Unit Dose INH BID 09/10/2016 09/09/2016 Inactive Brovana 15 mcg/2 mL solution for nebulization RxNorm: 927744 1 Unit Dose INH BID Dx: COPD (J44.9) 09/10/2016 01/25/2018 Inactive Brovana 15 mcg/2 mL solution for nebulization RxNorm: 621428 1 Unit Dose INH BID 09/10/2016 09/09/2016 Inactive ipratropium-albuterol 0.5 mg-3 mg(2.5 mg base)/3 mL ne bulization soln RxNorm: 8697780 1 Unit Dose INH Q4H as needed Dx: COPD (J44.9) 09/10/2016 0 02/12/2019 Inactive orphenadrine citrate ER 100 mg tablet,extended release RxNor m: 885464 1 Tablet(s) PO BID for muscle spasm--replaces methocarbamol 09/09/2016 Inactive Chantix Continuing Month Box 1 mg tablet RxNorm: 691612 Tablet(s) PO as directed 09/09/2016 10/30/2016 Inactive orphenadrine citrate ER 100 mg tablet,extended release RxNor m: 200282 1 Tablet(s) PO BID for muscle spasm 09/09/2016 09/08/2016 Inactive Spiriva with HandiHaler 18 mcg and inhalation capsules RxNor m: 638067 INHALE THE ENTIRE CONTENTS OF 1 CAPSULE ONCE A DAY USING HANDIHALER 09/01/201605/2017 Inactive Daliresp 500 mcg tablet RxNorm: 6699272 1 Tablet(s) PO QD 08/27/2016 03/01/2017 Inactive prednisone 20 mg tablet RxNorm: 658514 3 Tablet(s) PO T ID for 3 days then 1 po BID for 3 days then one daily for 3 days 08/26/2016 04/28/2017 Inactiv e Wellbutrin XL 300 mg 24 hr tablet, extended release RxNorm: 698544 TAKE ONE TABLET BY MOUTH EVERY MORNING 07/29/2016 10/26/2016 Inactive gabapentin 600 mg tablet RxNorm: 238740 1 Tablet(s) PO BID 06/26/20 16 12/22/2016 Inactive fluoxetine 40 mg capsule RxNorm: 825553 TAKE ONE CAPSULE BY BENOIT TH EVERY MORNING 06/24/2016 11/20/2016 Inactive Duragesic 100 mcg/hr transdermal patch RxNorm: 962846 2 Application TD Q48H for pain 06/05/2016 07/04/2016 Inactive oxycodone 10 mg tablet RxNorm: 9052651 1-2 Tablet(s) PO QID as n eeded for pain 06/05/2016 03/17/2017 Inactive Belladonna-Phenobarbital 48 mg tablet,extended release RxNor m: 2 Tablet(s) PO TID 06/05/2016 01/19/2017 Inactive Premarin 0.45 mg tablet RxNorm: 901409 TAKE ONE TABLET BY MOUTH DAILY 05/27/2016 09/23/2016 Inactive Topamax 100 mg tablet RxNorm: 394219 TAKE ONE TABLET BY MOUTH EVERY NIGHT AT BEDTIME 05/27/2016 09/27/2016 Inactive Synthroid 112 mcg tablet RxNorm: 415249 TAKE ONE TABLET BY MOUT H DAILY 05/27/2016 09/23/2016 Inactive metformin ER 500 mg tablet,extended release 24 hr RxNorm: 86 0975 TAKE ONE TABLET BY MOUTH DAILY 05/27/2016 09/23/2016 Inactive Symbicort 160 mcg-4.5 mcg/actuation HFA aerosol inhaler RxNo rm: 7778654 INHALE TWO PUFFS TWO TIMES A DAY 05/27/2016 10/23/2016 Inactive Ventolin HFA 90 mcg/actuation aerosol inhaler RxNorm: 969697 INHALE TWO PUFFS BY MOUTH EVERY 4 HOURS NEEDED 05/21/2016 07/07/2016 Inactive omeprazole 40 mg capsule,delayed release RxNorm: 541608 1 Capsu le(s) PO QD 05/06/2016 08/03/2016 Inactive metformin ER 500 mg tablet,extended release 24 hr RxNorm: 86 0975 TAKE ONE TABLET BY MOUTH DAILY 04/23/2016 05/22/2016 Inactive methocarbamol 750 mg tablet RxNorm: 489213 2 Tablet(s) PO TID as needed for muscle spasm 04/23/2016 09/08/2016 Inactive Synthroid 112 mcg tablet RxNorm: 446764 TAKE ONE TABLET BY MOUT H DAILY 04/23/2016 05/22/2016 Inactive Spiriva with HandiHaler 18 mcg and inhalation capsules RxNor m: 110634 INHALE THE ENTIRE CONTENTS OF 1 CAPSULE ONCE A DAY USING HANDIHALER 04/09/201608/2016 Inactive Diflucan 100 mg tablet RxNorm: 549949 1 Tablet(s) PO QD 04/08/2016 Inactive doxycycline hyclate 100 mg capsule RxNorm: 5452137 1 Capsule(s) PO BID 04/08/2016 04/17/2016 Inactive doxycycline hyclate 100 mg capsule RxNorm: 9496910 1 Capsule(s) PO BID 04/08/2016 04/07/2016 Inactive Diflucan 100 mg tablet RxNorm: 854262 1 Tablet(s) PO QD 04/08/2016 Inactive ondansetron HCl 4 mg tablet RxNorm: 766006 1 Tablet(s) PO Q4H as needed for nausea and vomiting 04/08/2016 09/22/2017 Inactive gabapentin 600 mg tablet RxNorm: 653742 TAKE ONE TABLET BY MOUT H TWICE A DAY 03/24/2016 06/25/2016 Inactive Synthroid 112 mcg tablet RxNorm: 706067 TAKE ONE TABLET BY MOUT H DAILY 02/25/2016 04/22/2016 Inactive Levaquin 500 mg tablet RxNorm: 815290 1 Tablet(s) PO QD 01/23/2016 Inactive prednisone 20 mg tablet RxNorm: 872864 1 Tablet(s) PO T ID for 3 days then 1 po BID for 3 days then one daily for 3 days 01/23/2016 08/25/2016 Inactiv e [email or web address] Ultra Test strips RxNorm: TEST BLOOD SUGAR ONCE DAILY 250.00 01/09/2016 11/04/2017 Inactive methocarbamol 750 mg tablet RxNorm: 982636 2 Tablet(s) PO TID as needed for muscle spasm 01/09/2016 04/23/2016 Inactive lactulose 10 gram/15 mL oral solution RxNorm: 951172 [address](s) PO QD 01/09/2016 09/22/2017 Inactive TAKE 1 TABLESPOON BY MOUTH ONCE DAILY metformin ER 500 mg tablet,extended release 24 hr RxNorm: 86 0975 1 Tablet(s) PO QD 12/26/2015 04/22/2016 Inactive fluoxetine 20 mg capsule RxNorm: 021470 1 Capsule(s) PO QD 12/23/19 16 06/19/2016 Inactive Premarin 0.45 mg tablet RxNorm: 926561 TAKE ONE TABLET BY MOUTH DAILY 12/23/2015 05/20/2016 Inactive fluoxetine 40 mg capsule RxNorm: 818833 1 Capsule(s) PO QD 12/23/19 16 06/19/2016 Inactive TAKE ONE CAPSULE BY MOUTH EV JANKI MORNING azithromycin 500 mg tablet RxNorm: 714205 1 Tablet(s) PO QD 016 12/19/2015 Inactive Zofran 4 mg tablet RxNorm: 847416 1 Tablet(s) PO Q4H prn nausea /vomiting 12/13/2015 03/30/2018 Inactive azithromycin 500 mg tablet RxNorm: 484652 1 Tablet(s) PO QD 016 12/12/2015 Inactive Duragesic 100 mcg/hr transdermal patch RxNorm: 726425 2 Application TD Q48H for pain 12/09/2015 01/07/2016 Inactive oxycodone 10 mg tablet RxNorm: 3313339 1-2 Tablet(s) PO QID as n eeded for pain 12/09/2015 06/04/2016 Inactive Bactroban 2 % topical cream RxNorm: 066041 Application TOP BID 11/2208/25/2016 Inactive doxycycline hyclate 100 mg capsule RxNorm: 6210728 1 Capsule(s) PO BID 12/03/2015 12/12/2015 Inactive Topamax 100 mg tablet RxNorm: 803446 TAKE ONE TABLET BY MOUTH EVERY NIGHT AT BEDTIME 11/25/2015 05/22/2016 Inactive Symbicort 160 mcg-4.5 mcg/actuation HFA aerosol inhaler RxNo rm: 1635419 INHALE TWO PUFFS TWO TIMES A DAY 11/25/2015 05/22/2016 Inactive Synthroid 112 mcg tablet RxNorm: 855089 Tablet(s) TAKE ONE TABLET BY MOUTH DAILY 11/25/2015 02/22/2016 Inactive omeprazole 40 mg capsule,delayed release RxNorm: 058399 1 Capsu le(s) PO QD 11/12/2015 05/05/2016 Inactive oxycodone 10 mg tablet RxNorm: 2412133 1-2 Tablet(s) PO QID as n eeded for pain 11/05/2015 12/08/2015 Inactive Duragesic 100 mcg/hr transdermal patch RxNorm: 130634 2 Application TD Q48H for pain 11/05/2015 12/04/2015 Inactive omeprazole 40 mg capsule,delayed release RxNorm: 594997 1 Capsu le(s) PO QD 10/07/2015 11/11/2015 Inactive Januvia 100 mg tablet RxNorm: 203308 TAKE ONE TABLET BY MOUTH DAILY 09/11/2015 12/25/2015 Inactive Zithromax 500 mg tablet RxNorm: 218052 1 Tablet(s) PO QD 09/10/2015 1 Inactive prednisone 20 mg tablet RxNorm: 118705 1 Tablet(s) PO T ID for 3 days then 1 po BID for 3 days then one daily for 3 days 09/10/2015 08/25/2016 Inactiv e Wellbutrin XL 300 mg 24 hr tablet, extended release RxNorm: 404896 1 Tablet(s) PO QAM 09/10/2015 12/02/2015 Inactive Topamax 100 mg tablet RxNorm: 219684 TAKE ONE TABLET BY MOUTH EVERY NIGHT AT BEDTIME 09/02/2015 11/24/2015 Inactive Synthroid 112 mcg tablet RxNorm: 094207 TAKE ONE TABLET BY MOUT H DAILY 09/02/2015 11/25/2015 Inactive methocarbamol 750 mg tablet RxNorm: 517695 2 Tablet(s) PO TID as needed for muscle spasm 08/15/2015 01/09/2016 Inactive Wellbutrin XL 150 mg 24 hr tablet, extended release RxNorm: 213069 TAKE ONE TABLET BY MOUTH EVERY MORNING 08/13/2015 08/13/2015 Inactive gabapentin 600 mg tablet RxNorm: 164786 1 Tablet(s) PO BID 08/13/20 15 02/08/2016 Inactive Wellbutrin XL 300 mg 24 hr tablet, extended release RxNorm: 506359 1 Tablet(s) PO QAM 08/06/2015 09/09/2015 Inactive Wellbutrin XL 150 mg 24 hr tablet, extended release RxNorm: 677902 1 Tablet(s) PO QAM 07/18/2015 08/05/2015 Inactive prednisone 20 mg tablet RxNorm: 947555 1 Tablet(s) PO BID 07/18/2015 07/22/2015 Inactive doxycycline hyclate 100 mg tablet,delayed release RxNorm: 43 4018 1 Tablet(s) PO BID 07/18/2015 07/27/2015 Inactive pravastatin 40 mg tablet RxNorm: 786055 1 Tablet(s) PO QD NEEDS FASTING LAB 07/15/2015 07/14/2015 Inactive pravastatin 40 mg tablet RxNorm: 180035 1 Tablet(s) PO QD NEEDS FASTING LAB 07/15/2015 01/25/2018 Inactive Ventolin HFA 90 mcg/actuation aerosol inhaler RxNorm: 994043 2 Puff(s) INH Q4H 07/08/2015 07/07/2015 Inactive prn Premarin 0.45 mg tablet RxNorm: 339488 1 Tablet(s) PO QD 07/01/2015 0 12/22/2015 Inactive pravastatin 40 mg tablet RxNorm: 533067 1 Tablet(s) PO QD NEEDS FASTING LAB 06/14/2015 07/15/2015 Inactive Ventolin HFA 90 mcg/actuation aerosol inhaler RxNorm: 9493794 2 Puff(s) INH Q4H 06/06/2015 07/08/2015 Inactive prn albuterol sulfate 2.5 mg/3 mL (0.083 %) solution for n ebulization RxNorm: 710644 1 Unit Dose INH QID 05/30/2015 No Stop Date Active Duragesic 100 mcg/hr transdermal patch RxNorm: 725491 2 Application TD Q48H for pain 04/29/2015 05/28/2015 Inactive gabapentin 600 mg tablet RxNorm: 139187 1 Tablet(s) PO BID 04/11/20 15 08/13/2015 Inactive Onglyza 5 mg tablet RxNorm: 942692 1 Tablet(s) PO QD for blood suga r 04/10/2015 04/15/2015 Inactive [Brand Copay Card: RxBIN:[id number] PCN:CN RxGRP:[id number] ID#:[id number]] methocarbamol 750 mg tablet RxNorm: 319359 2 Tablet(s) PO TID as needed for muscle spasm 03/28/2015 08/15/2015 Inactive pravastatin 40 mg tablet RxNorm: 943656 1 Tablet(s) PO QD 03/19/2015 03/18/2015 Inactive pravastatin 40 mg tablet RxNorm: 234454 1 Tablet(s) PO QD 03/19/2015 06/14/2015 Inactive lactulose 10 gram/15 mL oral solution RxNorm: 312610 [address]s) PO QD 03/07/2015 01/09/2016 Inactive TAKE 1 TABLESPOON BY MOUTH ONCE DAILY oxycodone 20 mg tablet RxNorm: 4646160 1 Tablet(s) PO QID as nee ded for pain 03/05/2015 07/08/2015 Inactive Topamax 100 mg tablet RxNorm: 984277 1 Tablet(s) PO QHS TAKE ONE TABLET BY MOUTH AT BEDTIME 02/25/2015 02/12/2019 Inactive metformin ER 500 mg tablet,extended release 24 hr RxNorm: 86 0975 1 Tablet(s) PO QD 02/11/2015 03/04/2015 Inactive take one tablet by mouth every day Daliresp 500 mcg tablet RxNorm: 2725728 1 Tablet(s) PO QD 02/11/2015 08/09/2015 Inactive Endocet 10 mg-325 mg tablet RxNorm: 0854191 1 Tablet(s) PO Q4H as needed for pain 01/23/2015 01/23/2015 Inactive gabapentin 600 mg tablet RxNorm: 437534 1 Tablet(s) PO BID 01/23/20 15 04/11/2015 Inactive methocarbamol 750 mg tablet RxNorm: 984024 2 Tablet(s) PO TID as needed for muscle spasm 01/15/2015 02/13/2015 Inactive fluoxetine 40 mg capsule RxNorm: 316732 1 Capsule(s) PO QD 01/14/20 15 12/23/2015 Inactive TAKE ONE CAPSULE BY MOUTH EV JANKI MORNING fluoxetine 20 mg capsule RxNorm: 574100 1 Capsule(s) PO QD 01/14/20 15 12/23/2015 Inactive Premarin 0.45 mg tablet RxNorm: 617638 1 Tablet(s) PO QD 01/02/2015 0 07/01/2015 Inactive Endocet 10 mg-325 mg tablet RxNorm: 7547416 1-2 Tablet(s) PO Q4H 02/12/2019 Inactive PRN PAIN Duragesic 100 mcg/hr transdermal patch RxNorm: 547207 2 Application TD Q48H for pain 12/25/2014 01/23/2015 Inactive Topamax 100 mg tablet RxNorm: 764642 1 Tablet(s) PO QHS TAKE ONE TABLET BY MOUTH AT BEDTIME 12/25/2014 02/24/2015 Inactive Tudorza Pressair 400 mcg/actuation breath activated RxNorm: 6928923 1 BID INHALE ONE PUFF INTO LUNGS TWO TIMES A DAY 12/17/2014 05/15/2015 Inactive Endocet 10 mg-325 mg tablet RxNorm: 5909062 1-2 Tablet(s) PO Q4H 12/19/2014 Inactive PRN PAIN Duragesic 100 mcg/hr transdermal patch RxNorm: 214539 2 Application TD Q48H for pain 11/20/2014 12/24/2014 Inactive [employer] Ultra Test strips RxNorm: TEST BLOOD SUGAR ONCE DAILY 250.00 11/16/2014 01/08/2016 Inactive omeprazole 40 mg capsule,delayed release RxNorm: 828096 1 Capsu le(s) PO QD 11/13/2014 11/12/2015 Inactive metformin ER 500 mg tablet,extended release 24 hr RxNorm: 86 0975 1 Tablet(s) PO QD 11/12/2014 02/11/2015 Inactive take one tablet by mouth every day Symbicort 160 mcg-4.5 mcg/actuation HFA aerosol inhaler RxNo rm: 8841697 2 Puff(s) INH BID 11/12/2014 03/11/2015 Inactive INHALE 2 PUFFS O RALLY TWO TIMES A DAY gabapentin 800 mg tablet RxNorm: 886594 1 Tablet(s) PO QD TAKE ONE TABLET BY MOUTH ONCE A DAY 10/22/2014 01/01/2015 Inactive Endocet 10 mg-325 mg tablet RxNorm: 6619247 1-2 Tablet(s) PO Q4H 11/15/2014 Inactive PRN PAIN Duragesic 100 mcg/hr transdermal patch RxNorm: 041292 2 Application TD Q48H for pain 10/17/2014 11/19/2014 Inactive gabapentin 800 mg tablet RxNorm: 320395 1 Tablet(s) PO QD TAKE ONE TABLET BY MOUTH ONCE A DAY 10/04/2014 10/21/2014 Inactive Premarin 0.9 mg tablet RxNorm: 076892 1 Tablet(s) PO QD TAKE ONE TABLET BY MOUTH ONCE A DAY 10/04/2014 01/01/2015 Inactive Spiriva with HandiHaler 18 mcg & inhalation capsules RxNorm: 201295 1 Capsule(s) INH QD 10/03/2014 04/30/2015 Inactive Levaquin 500 mg tablet RxNorm: 617350 1 Tablet(s) PO QD 10/03/2014 Inactive prednisone 20 mg tablet RxNorm: 059473 1 Tablet(s) PO QD 10/03/201412/09/2013 Inactive Duragesic 100 mcg/hr transdermal patch RxNorm: 191599 2 Application TD Q48H for pain 09/18/2014 10/16/2014 Inactive Endocet 10 mg-325 mg tablet RxNorm: 1734325 1-2 Tablet(s) PO Q4H 10/16/2014 Inactive PRN PAIN Synthroid 112 mcg tablet RxNorm: 449429 1 Tablet(s) QD 09/10/2014 Inactive Synthroid 112 mcg tablet RxNorm: 860009 TAKE ONE TABLET BY MOUTH ONE TIME A DAY. NEEDS LABS 09/10/2014 02/06/2015 Inactive omeprazole 40 mg capsule,delayed release RxNorm: 705371 1 Capsu le(s) PO QD 09/03/2014 11/13/2014 Inactive omeprazole 40 mg capsule,delayed release RxNorm: 970840 1 Capsu le(s) PO QD 09/03/2014 09/02/2014 Inactive Spiriva with HandiHaler 18 mcg & inhalation capsules RxNorm: 419995 1 Capsule(s) INH QD 08/27/2014 10/02/2014 Inactive gabapentin 600 mg tablet RxNorm: 864486 1 Tablet(s) PO BID 08/27/20 14 10/22/2014 Inactive Endocet 10 mg-325 mg tablet RxNorm: 1355705 1-2 Tablet(s) PO Q4H 09/17/2014 Inactive PRN PAIN fentanyl 100 mcg/hr transdermal patch RxNorm: 770693 1 Unit Dos e TD QD 08/21/2014 09/19/2014 Inactive Daliresp 500 mcg tablet RxNorm: 5351679 1 Tablet(s) PO QD 08/13/2014 02/11/2015 Inactive Synthroid 112 mcg tablet RxNorm: 493727 TAKE ONE TABLET BY MOUTH ONE TIME A DAY. NEEDS LABS 08/10/2014 09/10/2014 Inactive Endocet 10 mg-325 mg tablet RxNorm: 4696865 1-2 Tablet(s) PO Q4H 08/17/2014 Inactive PRN PAIN Duragesic 100 mcg/hr transdermal patch RxNorm: 481148 2 Application TD Q48H for pain 07/19/2014 09/17/2014 Inactive fluoxetine 40 mg capsule RxNorm: 677603 1 Capsule(s) PO QD 07/17/20 14 01/14/2015 Inactive TAKE ONE CAPSULE BY MOUTH EV JANKI MORNING fluoxetine 20 mg capsule RxNorm: 614388 1 Capsule(s) PO QD 07/17/20 14 01/14/2015 Inactive Spiriva with HandiHaler 18 mcg & inhalation capsules RxNorm: 071266 1 Capsule(s) INH QD 07/17/2014 08/26/2014 Inactive INHALE CONTENTS OF 1 CAPSULE(S) WITH HANDIHALER ONCE DAILY Zofran 4 mg tablet RxNorm: 373408 1 Tablet(s) PO Q4H prn nausea 07/25/2014 Inactive Synthroid 112 mcg tablet RxNorm: 065244 1 Tablet(s) PO QD 07/09/2014 07/09/2014 Inactive methocarbamol 750 mg tablet RxNorm: 921981 2 Tablet(s) PO TID as needed for muscle spasm 07/09/2014 09/06/2014 Inactive Synthroid 112 mcg tablet RxNorm: 219059 1 Tablet(s) PO QD - nee d labs 07/09/2014 08/07/2014 Inactive Medrol (Aníbal) 4 mg tablets in a dose pack RxNorm: 419481 6 Tablet(s) PO QD --then as directed 07/03/2014 07/08/2014 Inactive Tudorza Pressair 400 mcg/actuation breath activated RxNorm: 1853773 1 Puff(s) INH BID 07/03/2014 12/17/2014 Inactive cefdinir 300 mg capsule RxNorm: 550404 1 Capsule(s) PO BID 07/03/20 14 07/12/2014 Inactive Topamax 100 mg tablet RxNorm: 416109 Tablet(s) TAKE ONE TABLET BY MOUTH AT BEDTIME 07/02/2014 02/25/2015 Inactive Duragesic 100 mcg/hr transdermal patch RxNorm: 244452 2 Application TD Q48H for pain 06/25/2014 07/18/2014 Inactive Endocet 10 mg-325 mg tablet RxNorm: 1468800 1-2 Tablet(s) PO Q4H 07/18/2014 Inactive PRN PAIN metformin ER 500 mg tablet,extended release 24 hr RxNorm: 86 0975 1 Tablet(s) PO QD Needs labs 06/18/2014 07/01/2014 Inactive take one tablet by mouth every day Duragesic 100 mcg/hr transdermal patch RxNorm: 460500 2 Application TD Q48H for pain 05/22/2014 06/24/2014 Inactive Synthroid 112 mcg tablet RxNorm: 026631 1 Tablet(s) PO QD 05/22/2014 07/09/2014 Inactive Endocet 10 mg-325 mg tablet RxNorm: 1698353 1-2 Tablet(s) PO Q4H 06/20/2014 Inactive PRN PAIN Endocet 10 mg-325 mg tablet RxNorm: 6566186 1-2 Tablet(s) PO Q4H 05/21/2014 Inactive PRN PAIN Duragesic 100 mcg/hr transdermal patch RxNorm: 382716 2 Application TD Q48H for pain 04/25/2014 05/21/2014 Inactive Daliresp 500 mcg tablet RxNorm: 8215240 1 Tablet(s) PO QD 04/24/2014 08/13/2014 Inactive Symbicort 160 mcg-4.5 mcg/actuation HFA aerosol inhaler RxNo rm: 0910424 2 Puff(s) INH BID 04/24/2014 08/21/2014 Inactive INHALE 2 PUFFS O RALLY TWO TIMES A DAY metformin ER 500 mg tablet,extended release 24 hr RxNorm: 86 0975 1 Tablet(s) PO QD 04/24/2014 11/12/2014 Inactive TAKE ONE TABLET BY MOUTH EVERY DAY [AttnRPh:Saving Apply/Adjudicate RxGRP:LDMGRP RxBIN:[id number] RxPCN:2012 PCode:01 ID#:[id number]] Symbicort 160 mcg-4.5 mcg/actuation HFA aerosol inhaler RxNo rm: 2530011 2 Puff(s) INH BID 04/24/2014 11/12/2014 Inactive INHALE 2 PUFFS O RALLY TWO TIMES A DAY Premarin 0.9 mg tablet RxNorm: 456012 1 Tablet(s) PO QD 04/24/2014 Inactive TAKE ONE TABLET BY MOUTH EVERY DAY metformin ER 500 mg tablet,extended release 24 hr RxNorm: 86 0975 1 Tablet(s) PO QD Needs labs 04/24/2014 06/18/2014 Inactive TAKE ONE TABLET BY MOUTH EVERY DAY [AttnRPh:Saving Apply/Adjudicate RxGRP:LDMGRP RxBIN:[id number] RxPCN:2012 PCode:01 ID#:[id number]] gabapentin 800 mg tablet RxNorm: 401980 1 Tablet(s) PO QD 04/24/2014 10/04/2014 Inactive TAKE ONE TABLET BY MOUTH EVERY DAY Topamax 100 mg tablet RxNorm: 255387 1 Tablet(s) PO QHS 04/17/2014 Inactive Topamax 100 mg tablet RxNorm: 899605 TAKE ONE TABLET BY MOUTH A T BEDTIME 04/17/2014 07/01/2014 Inactive Tudorza Pressair 400 mcg/actuation breath activated RxNorm: 0235151 1 Puff(s) INH BID 04/11/2014 07/02/2014 Inactive Duragesic 100 mcg/hr transdermal patch RxNorm: 127426 2 Application TD Q48H for pain 03/27/2014 04/24/2014 Inactive Endocet 10 mg-325 mg tablet RxNorm: 8213896 1-2 Tablet(s) PO Q4H 04/24/2014 Inactive PRN PAIN Robaxin 750 mg tablet RxNorm: 160552 2 Tablet(s) PO TID as need ed for spasm 02/23/2014 03/28/2015 Inactive Duragesic 100 mcg/hr transdermal patch RxNorm: 858034 2 Application TD Q48H for pain 02/23/2014 No Stop Date Active Endocet 10 mg-325 mg tablet RxNorm: 0393289 1-2 Tablet(s) PO Q4H 03/23/2014 Inactive PRN PAIN Synthroid 112 mcg tablet RxNorm: 803212 1 Tablet(s) PO QD TAKE ONE TABLET BY MOUTH EVERY DAY 02/15/2014 05/22/2014 Inactive Zithromax 500 mg tablet RxNorm: 896919 1 Tablet(s) PO QD 01/30/2014 0 02/05/2014 Inactive Diflucan 100 mg tablet RxNorm: 862684 1 Tablet(s) PO QD 01/30/2014 Inactive prednisone 20 mg tablet RxNorm: 387981 1 Tablet(s) PO BID 01/30/2014 02/05/2014 Inactive fluoxetine 40 mg capsule RxNorm: 072974 1 Capsule(s) PO QD 01/23/20 14 07/16/2014 Inactive TAKE ONE CAPSULE BY MOUTH EV JANKI MORNING fluoxetine 40 mg capsule RxNorm: 566425 1 Capsule(s) PO QD 01/23/20 14 07/17/2014 Inactive TAKE ONE CAPSULE BY MOUTH EV JANKI MORNING cefdinir 300 mg capsule RxNorm: 119927 1 Capsule(s) PO BID 01/16/20 14 01/29/2014 Inactive Zithromax 500 mg tablet RxNorm: 681023 1 Tablet(s) PO QD 01/16/2014 0 01/22/2014 Inactive prednisone 20 mg tablet RxNorm: 483193 1 Tablet(s) PO BID 01/16/2014 01/22/2014 Inactive Spiriva with HandiHaler 18 mcg and inhalation capsules RxNor m: 824063 1 Capsule(s) INH QD 12/18/2013 07/17/2014 Inactive INHALE CONTENT S OF 1 CAPSULE(S) WITH HANDIHALER ONCE DAILY fluoxetine 20 mg capsule RxNorm: 926563 1 Capsule(s) PO QD 12/18/19 14 06/15/2014 Inactive Spiriva with HandiHaler 18 mcg & inhalation capsules RxNorm: 901756 1 Capsule(s) INH QD 12/18/2013 06/15/2014 Inactive INHALE CONTENTS OF 1 CAPSULE(S) WITH HANDIHALER ONCE DAILY fluoxetine 20 mg capsule RxNorm: 626672 1 Capsule(s) PO QD 12/18/19 14 07/17/2014 Inactive cefdinir 300 mg capsule RxNorm: 923969 2 Capsule(s) PO QD 12/12/2013 12/21/2013 Inactive Duragesic 100 mcg/hr transdermal patch RxNorm: 395926 2 Application TD Q48H for pain 12/08/2013 12/07/2013 Inactive Topamax 100 mg tablet RxNorm: 244321 1 Tablet(s) PO QHS 12/04/2013 Inactive Endocet 10 mg-325 mg tablet RxNorm: 6263423 1-2 Tablet(s) PO Q4H 12/26/2013 Inactive PRN PAIN Robaxin 750 mg tablet RxNorm: 316093 2 Tablet(s) PO TID as need ed for spasm 11/07/2013 01/05/2014 Inactive gabapentin 800 mg tablet RxNorm: 444861 1 Tablet(s) PO QD 10/16/2013 04/24/2014 Inactive TAKE ONE TABLET BY MOUTH EVERY DAY Symbicort 160 mcg-4.5 mcg/actuation HFA aerosol inhaler RxNo rm: 4150626 2 Puff(s) INH BID 10/16/2013 04/24/2014 Inactive INHALE 2 PUFFS O RALLY TWO TIMES A DAY Premarin 0.9 mg tablet RxNorm: 876776 1 Tablet(s) PO QD 10/16/2013 Inactive TAKE ONE TABLET BY MOUTH EVERY DAY metformin ER 500 mg tablet,extended release 24 hr RxNorm: 86 0975 1 Tablet(s) PO QD 10/16/2013 04/24/2014 Inactive TAKE ONE TABLET BY MOUTH EVERY DAY Daliresp 500 mcg tablet RxNorm: 2861089 1 Tablet(s) PO QD 10/16/2013 04/24/2014 Inactive Robaxin 750 mg tablet RxNorm: 741752 2 Tablet(s) PO TID as need ed for spasm 10/10/2013 11/06/2013 Inactive Duragesic 100 mcg/hr transdermal patch RxNorm: 178708 2 Application TD Q48H for pain 10/09/2013 No Stop Date Active Soma 350 mg tablet RxNorm: 805885 1 Tablet(s) PO TID 09/27/201310/09 Inactive TAKE ONE TABLET BY MOUTH THREE TIMES A D AY lactulose 10 gram/15 mL oral solution RxNorm: 675162 [address](s) PO QD 09/13/2013 03/07/2015 Inactive TAKE 1 TABLESPOON BY MOUTH ONCE DAILY Duragesic 100 mcg/hr transdermal patch RxNorm: 333227 2 Application TD Q48H for pain 09/06/2013 No Stop Date Active Endocet 10 mg-325 mg tablet RxNorm: 0735578 1-2 Tablet(s) PO Q4H 09/27/2013 Inactive PRN PAIN lancets 28 gauge RxNorm: Miscellaneous As needed for blo od glucose sticks 08/24/2013 No Stop Date Active 16.2 mg-0.1037 mg-0.0194 mg tablet RxNorm: 3404215 Tablet(s) PO PRN for gas and cramping 08/24/2013 01/19/2017 Inactive TAKE TWO TABLET S BY MOUTH THREE TIMES A DAY NEEDED FOR GAS AND CRAMPING Topamax 100 mg tablet RxNorm: 671256 1 Tablet(s) PO QHS 07/31/2013 Inactive Diflucan 100 mg tablet RxNorm: 725443 1 Tablet(s) PO QD 07/27/2013 Inactive cefdinir 300 mg capsule RxNorm: 890249 1 Capsule(s) PO BID 07/26/20 13 08/08/2013 Inactive Daliresp 500 mcg tablet RxNorm: 7421217 1 Tablet(s) PO QD 07/25/2013 10/15/2013 Inactive fluoxetine 40 mg capsule RxNorm: 045163 1 Capsule(s) PO QD 07/25/20 13 01/22/2014 Inactive TAKE ONE CAPSULE BY MOUTH EV JANKI MORNING Senokot-S 8.6 mg-50 mg tablet RxNorm: 5772013 1 Tablet(s) PO BID 10/25/2013 Inactive doxycycline hyclate 100 mg capsule RxNorm: 7534923 1 Capsule(s) PO BID 06/28/2013 07/07/2013 Inactive prednisone 20 mg tablet RxNorm: 553583 1 Tablet(s) PO BID 06/28/2013 07/04/2013 Inactive Zofran 4 mg tablet RxNorm: 725292 1 Tablet(s) PO Q4H prn nausea 03/201307/05/2013 Inactive Spiriva with HandiHaler 18 mcg & inhalation capsules RxNorm: 777985 1 Capsule(s) INH QD 06/26/2013 12/18/2013 Inactive INHALE CONTENTS OF 1 CAPSULE(S) WITH HANDIHALER ONCE DAILY Synthroid 112 mcg tablet RxNorm: 369043 1 Tablet(s) PO QD TAKE ONE TABLET BY MOUTH EVERY DAY 06/19/2013 02/15/2014 Inactive fluoxetine 20 mg capsule RxNorm: 749250 1 Capsule(s) PO QD 06/19/20 13 12/18/2013 Inactive Ventolin HFA 90 mcg/actuation Aerosol Inhaler RxNorm: 0976624 2 Puff(s) INH Q4H 06/05/2013 No Stop Date Active prn Soma 350 mg tablet RxNorm: 948293 1 Tablet(s) PO TID 06/05/201307/04 Inactive TAKE ONE TABLET BY MOUTH THREE TIMES A D AY prednisone 20 mg tablet RxNorm: 729288 1 Tablet(s) PO QD 05/31/2013 0 06/06/2013 Inactive Topamax 100 mg tablet RxNorm: 490994 1 Tablet(s) PO QHS 05/22/2013 Inactive Levaquin 500 mg tablet RxNorm: 435655 1 Tablet(s) PO QD 05/03/2013 Inactive Diflucan 100 mg tablet RxNorm: 508092 1 Tablet(s) PO QD 05/03/2013 Inactive Daliresp 500 mcg tablet RxNorm: 5755126 1 Tablet(s) PO QD 05/01/2013 07/24/2013 Inactive Daliresp 500 mcg tablet RxNorm: 8829046 1 Tablet(s) PO QD 05/01/2013 04/30/2013 Inactive gabapentin 800 mg tablet RxNorm: 568723 1 Tablet(s) PO QD 04/10/2013 10/06/2013 Inactive TAKE ONE TABLET BY MOUTH EVERY DAY metformin ER 500 mg tablet,extended release 24 hr RxNorm: 86 0977 1 Tablet(s) PO QD 04/10/2013 10/06/2013 Inactive TAKE ONE TABLET BY MOUTH EVERY DAY Premarin 0.9 mg tablet RxNorm: 824875 1 Tablet(s) PO QD 04/10/2013 Inactive TAKE ONE TABLET BY MOUTH EVERY DAY Symbicort 160 mcg-4.5 mcg/actuation HFA aerosol inhaler RxNo rm: 4066238 2 Puff(s) INH BID 04/10/2013 10/06/2013 Inactive INHALE 2 PUFFS O RALLY TWO TIMES A DAY Synthroid 112 mcg tablet RxNorm: 356934 1 Tablet(s) PO QD TAKE ONE TABLET BY MOUTH EVERY DAY 04/10/2013 06/18/2013 Inactive Ventolin HFA 90 mcg/actuation Aerosol Inhaler RxNorm: 557364 2 Puff(s) INH Q4H 04/10/2013 No Stop Date Active prn fentanyl 100 mcg/hr transdermal patch RxNorm: 766589 1 Unit Dos e TD QD 04/03/2013 05/02/2013 Inactive Endocet 10 mg-325 mg tablet RxNorm: 8558452 1-2 Tablet(s) PO Q4H 05/02/2013 Inactive PRN PAIN Topamax 100 mg tablet RxNorm: 893748 1 Tablet(s) PO QHS 03/13/2013 Inactive Reglan 10 mg tablet RxNorm: 365617 1 Tablet(s) PO QID b efore meals and at bedtime 03/13/2013 04/09/2015 Inactive fluoxetine 20 mg capsule RxNorm: 494098 1 Capsule(s) PO QD 02/28/20 13 05/27/2013 Inactive Ventolin HFA 90 mcg/actuation Aerosol Inhaler RxNorm: 504636 2 Puff(s) INH Q4H 02/13/2013 No Stop Date Active prn fluoxetine 40 mg capsule RxNorm: 801723 1 Capsule(s) PO QD 01/31/20 13 07/24/2013 Inactive TAKE ONE CAPSULE BY MOUTH EV JANKI MORNING Soma 350 mg tablet RxNorm: 782561 1 Tablet(s) PO TID 01/20/201302/18 Inactive TAKE ONE TABLET BY MOUTH THREE TIMES A D AY Endocet 10 mg-325 mg tablet RxNorm: 6244049 1-2 Tablet(s) PO Q4H 02/06/2013 Inactive PRN PAIN MS Contin 200 mg tablet,extended release RxNorm: 747716 1 Table t(s) PO BID 01/18/2013 02/06/2013 Inactive Ventolin HFA 90 mcg/actuation Aerosol Inhaler RxNorm: 904983 2 Puff(s) INH Q4H 01/04/2013 No Stop Date Active prn Spiriva with HandiHaler 18 mcg & inhalation capsules RxNorm: 060538 1 Capsule(s) INH QD 12/29/2012 06/25/2013 Inactive INHALE CONTENTS OF 1 CAPSULE(S) WITH HANDIHALER ONCE DAILY Spiriva with HandiHaler 18 mcg & inhalation capsules RxNorm: 252432 1 Capsule(s) INH QD 12/26/2012 12/28/2012 Inactive INHALE CONTENTS OF 1 CAPSULE(S) WITH HANDIHALER ONCE DAILY Synthroid 112 mcg tablet RxNorm: 053820 Tablet(s) PO TA KE ONE TABLET BY MOUTH EVERY DAY 12/26/2012 04/09/2013 Inactive Endocet 10 mg-325 mg tablet RxNorm: 0655398 1-2 Tablet(s) PO Q4H 01/17/2013 Inactive PRN PAIN MS Contin 200 mg tablet,extended release RxNorm: 393730 1 Table t(s) PO BID 12/21/2012 01/17/2013 Inactive fluoxetine 20 mg capsule RxNorm: 210265 1 Capsule(s) PO QD 12/06/19 13 02/26/2013 Inactive Synthroid 112 mcg tablet RxNorm: 488011 1 Tablet(s) PO QD 12/06/2012 02/12/2019 Inactive TAKE ONE TABLET BY MOUTH EVERY DAY Ventolin HFA 90 mcg/actuation Aerosol Inhaler RxNorm: 011156 2 Puff(s) INH Q4H 12/06/2012 No Stop Date Active prn Reglan 10 mg tablet RxNorm: 433491 1 Tablet(s) PO QID b efore meals and at bedtime 11/24/2012 03/12/2013 Inactive Topamax 100 mg tablet RxNorm: 197787 1 Tablet(s) PO QHS 11/16/2012 Inactive Ventolin HFA 90 mcg/actuation Aerosol Inhaler RxNorm: 626873 2 Puff(s) INH Q4H 11/09/2012 No Stop Date Active prn gabapentin 800 mg tablet RxNorm: 690495 1 Tablet(s) PO QD 10/27/2012 04/09/2013 Inactive TAKE ONE TABLET BY MOUTH EVERY DAY metformin ER 500 mg tablet,extended release 24 hr RxNorm: 86 0977 1 Tablet(s) PO QD 10/27/2012 04/09/2013 Inactive TAKE ONE TABLET BY MOUTH EVERY DAY Symbicort 160 mcg-4.5 mcg/actuation HFA Aerosol Inhaler RxNo rm: 4750105 2 Puff(s) INH BID 10/27/2012 04/09/2013 Inactive INHALE 2 PUFFS O RALLY TWO TIMES A DAY Premarin 0.9 mg tablet RxNorm: 870360 1 Tablet(s) PO QD 10/27/2012 Inactive TAKE ONE TABLET BY MOUTH EVERY DAY Endocet 10 mg-325 mg tablet RxNorm: 1304357 1-2 Tablet(s) PO Q4H 11/24/2012 Inactive PRN PAIN MS Contin 200 mg tablet,extended release RxNorm: 223202 1 Table t(s) PO BID 10/26/2012 11/24/2012 Inactive Soma 350 mg tablet RxNorm: 123892 1 Tablet(s) PO TID 10/04/201211/02 Inactive TAKE ONE TABLET BY MOUTH THREE TIMES A D AY Ventolin HFA 90 mcg/actuation Aerosol Inhaler RxNorm: 743397 2 Puff(s) INH Q4H 10/03/2012 No Stop Date Active prn Daliresp 500 mcg tablet RxNorm: 6756335 1 Tablet(s) PO QD 09/28/2012 09/27/2012 Inactive Daliresp 500 mcg tablet RxNorm: 7995230 1 Tablet(s) PO QD 09/28/2012 04/25/2013 Inactive fluoxetine 20 mg capsule RxNorm: 760330 1 Capsule(s) PO QD 09/05/2012/06/2012 Inactive Topamax 50 mg tablet RxNorm: 730069 Tablet(s) PO for 1w k then 1 po q HS for 1wk then 2 po q HS 08/29/2012 09/27/2012 Inactive TAKE 1/2 TABLET BY MOUTH AT BEDTIME FOR 1 WEEK, THEN 1 TABLET AT BEDTIME FOR 1 WEEK, THEN 2 TABLETS AT BEDTIME Topamax 100 mg tablet RxNorm: 253210 1 Tablet(s) PO QHS 08/29/2012 Inactive Ventolin HFA 90 mcg/actuation Aerosol Inhaler RxNorm: 696107 2 Puff(s) INH Q4H 08/19/2012 No Stop Date Active prn Ventolin HFA 90 mcg/actuation Aerosol Inhaler RxNorm: 990815 2 Puff(s) INH Q4H 08/15/2012 No Stop Date Active prn Synthroid 112 mcg tablet RxNorm: 715676 1 Tablet(s) PO QD 08/10/2012 11/07/2012 Inactive TAKE ONE TABLET BY MOUTH EVERY DAY Synthroid 112 mcg tablet RxNorm: 699404 1 Tablet(s) PO QD 08/01/2012 08/09/2012 Inactive TAKE ONE TABLET BY MOUTH EVERY DAY Reglan 10 mg tablet RxNorm: 151578 1 Tablet(s) PO QID b efore meals and at bedtime 08/01/2012 11/23/2012 Inactive fluoxetine 40 mg capsule RxNorm: 549449 1 Capsule(s) PO QD 08/01/2001/27/2013 Inactive TAKE ONE CAPSULE BY MOUTH EV JANKI MORNING Ventolin HFA 90 mcg/actuation Aerosol Inhaler RxNorm: 904839 2 Puff(s) INH Q4H 08/01/2012 No Stop Date Active prn Soma 350 mg tablet RxNorm: 640815 1 Tablet(s) PO TID 07/20/201208/18 Inactive TAKE ONE TABLET BY MOUTH THREE TIMES A D AY Spiriva with HandiHaler 18 mcg & inhalation capsules RxNorm: 850312 1 Capsule(s) INH 07/01/2012 12/25/2012 Inactive INHALE CONTENTS OF 1 CAPSULE(S) WITH HANDIHALER ONCE DAILY Zithromax 250 mg Tab RxNorm: 077518 2 Tablet(s) PO QD 06/28/201206/22 Inactive MS Contin 200 mg tablet,extended release RxNorm: 838378 1 Table t(s) PO BID 06/28/2012 07/27/2012 Inactive Endocet 10 mg-325 mg tablet RxNorm: 8122518 1-2 Tablet(s) PO Q4H 07/27/2012 Inactive PRN PAIN Topamax 100 mg tablet RxNorm: 420388 1 Tablet(s) PO QHS 06/28/2012 Inactive 16.2 mg-0.1037 mg-0.0194 mg tablet RxNorm: 6911009 Tablet(s) PO PRN for gas and cramping 06/08/2012 08/23/2013 Inactive TAKE TWO TABLET S BY MOUTH THREE TIMES A DAY NEEDED FOR GAS AND CRAMPING Ventolin HFA 90 mcg/actuation Aerosol Inhaler RxNorm: 251696 2 Puff(s) INH Q4H 05/23/2012 No Stop Date Active prn Ventolin HFA 90 mcg/actuation Aerosol Inhaler RxNorm: 263059 2 Puff(s) INH Q4H 05/11/2012 No Stop Date Active prn Synthroid 112 mcg tablet RxNorm: 803977 1 Tablet(s) PO QD 05/09/2012 07/31/2012 Inactive TAKE ONE TABLET BY MOUTH EVERY DAY gabapentin 800 mg tablet RxNorm: 008360 1 Tablet(s) PO QD 05/09/2012 10/26/2012 Inactive TAKE ONE TABLET BY MOUTH EVERY DAY fluoxetine 40 mg capsule RxNorm: 131824 1 Capsule(s) PO QD 05/09/2007/31/2012 Inactive TAKE ONE CAPSULE BY MOUTH EV JANKI MORNING metformin ER 500 mg tablet,extended release 24 hr RxNorm: 86 0977 1 Tablet(s) PO QD 05/09/2012 10/26/2012 Inactive TAKE ONE TABLET BY MOUTH EVERY DAY Premarin 0.9 mg tablet RxNorm: 910555 1 Tablet(s) PO QD 05/09/2012 Inactive TAKE ONE TABLET BY MOUTH EVERY DAY Symbicort 160 mcg-4.5 mcg/actuation HFA Aerosol Inhaler RxNo rm: 6679235 2 Puff(s) INH BID 05/09/2012 10/26/2012 Inactive INHALE 2 PUFFS O RALLY TWO TIMES A DAY Endocet 10 mg-325 mg Tab RxNorm: 0427791 1-2 Tablet(s) PO Q4H 04/2705/26/2012 Inactive PRN PAIN MS Contin 200 mg Tab RxNorm: 958025 1 Tablet(s) PO BID 04/26/201202/2012 Inactive Ventolin HFA 90 mcg/actuation Aerosol Inhaler RxNorm: 078078 2 Puff(s) INH Q4H 04/25/2012 05/10/2012 Inactive prn Soma 350 mg tablet RxNorm: 699064 2 Tablet(s) PO TID 04/19/201207/19 Inactive TAKE ONE TABLET BY MOUTH THREE TIMES A D AY Ventolin HFA 90 mcg/actuation Aerosol Inhaler RxNorm: 758615 2 Puff(s) INH Q4H 04/12/2012 04/24/2012 Inactive prn Reglan 10 mg tablet RxNorm: 494427 1 Tablet(s) PO QID b efore meals and at bedtime 04/11/2012 07/31/2012 Inactive MS Contin 200 mg Tab RxNorm: 717253 1 Tablet(s) PO BID 03/30/201202/2012 Inactive Endocet 10 mg-325 mg Tab RxNorm: 3370702 1-2 Tablet(s) PO Q4H 03/3004/26/2012 Inactive PRN PAIN MS Contin 200 mg Tab RxNorm: 382585 1 Tablet(s) PO BID 03/02/201206/2012 Inactive Endocet 10 mg-325 mg Tab RxNorm: 7053285 1-2 Tablet(s) PO Q4H 03/0203/29/2012 Inactive PRN PAIN Daliresp 500 mcg tablet RxNorm: 3436510 1 Tablet(s) PO QD 03/01/2012 09/28/2012 Inactive MS Contin 200 mg Tab RxNorm: 614078 1 Tablet(s) PO BID 02/02/201208/2012 Inactive Endocet 10 mg-325 mg Tab RxNorm: 6188332 1-2 Tablet(s) PO Q4H 02/0103/01/2012 Inactive PRN PAIN fluoxetine 40 mg capsule RxNorm: 183709 1 Capsule(s) PO QD 02/02/2008/01/2012 Inactive TAKE ONE CAPSULE BY MOUTH EV JANKI MORNING Synthroid 112 mcg Tab RxNorm: 864696 1 Tablet(s) PO QD 01/18/2012 Inactive TAKE ONE TABLET BY MOUTH EVERY DAY lactulose 10 gram/15 mL oral solution RxNorm: 258246 [address]s) PO QD 01/18/2012 No Stop Date Active TAKE 1 TABLESPOON BY MOUTH ONCE DAILY Ventolin HFA 90 mcg/actuation Aerosol Inhaler RxNorm: 082986 2 Puff(s) INH Q4H 01/18/2012 04/11/2012 Inactive prn MS Contin 200 mg Tab RxNorm: 275516 1 Tablet(s) PO BID 01/05/201210/2012 Inactive Endocet 10 mg-325 mg Tab RxNorm: 4210214 1-2 Tablet(s) PO Q4H 01/0502/01/2012 Inactive PRN PAIN ProAir HFA 90 mcg/Actuation Aerosol Inhaler RxNorm: 035566 2 Pu ff(s) INH Q4H 12/21/2011 No Stop Date Active prn for wheezing or shortness of breath Spiriva with HandiHaler 18 mcg & inhalation Caps RxNorm: 580 261 1 Capsule(s) INH 12/21/2011 06/30/2012 Inactive INHALE CONTENTS OF 1 CAPSULE(S) WITH HANDIHALER ONCE DAILY Reglan 10 mg Tab RxNorm: 795290 1 Tablet(s) PO QID before meals and at bedtime 12/21/2011 04/10/2012 Inactive Synthroid 112 mcg Tab RxNorm: 665857 1 Tablet(s) PO QD 12/21/2011 Inactive TAKE ONE TABLET BY MOUTH EVERY DAY Endocet 10 mg-325 mg Tab RxNorm: 3287588 1-2 Tablet(s) PO Q4H 11/2512/24/2011 Inactive PRN PAIN MS Contin 200 mg Tab RxNorm: 707641 1 Tablet(s) PO BID 11/25/201112/2011 Inactive lactulose 10 gram/15 mL Oral Soln RxNorm: 980280 Milliliter(s) PO 1 No Stop Date Active TAKE 1 TABLESPOON BY MOUTH O NCE DAILY lactulose 10 gram/15 mL Oral Soln RxNorm: 285732 Milliliter(s) PO 1 12/12/2010 11/20/2011 Inactive TAKE 1 TABLESPOON BY MOUTH O NCE DAILY Premarin 0.9 mg Tab RxNorm: 233529 1 Tablet(s) PO QD 10/12/201105/08 Inactive TAKE ONE TABLET BY MOUTH EVERY DAY fluoxetine 20 mg capsule RxNorm: 426732 1 Capsule(s) PO QD 10/12/20 11 09/05/2012 Inactive TAKE ONE CAPSULE BY MOUTH EV JANKI DAY Synthroid 112 mcg Tab RxNorm: 877150 1 Tablet(s) PO QD 10/12/2011 Inactive TAKE ONE TABLET BY MOUTH EVERY DAY metformin ER 500 mg 24 hr Tab RxNorm: 940509 1 Tablet(s) PO QD 09/2311/10/2011 Inactive TAKE ONE TABLET BY MOUTH GLYNN RY DAY Synthroid 112 mcg Tab RxNorm: 893133 1 Tablet(s) PO QD 10/12/2011 Inactive TAKE ONE TABLET BY MOUTH EVERY DAY metformin ER 500 mg 24 hr Tab RxNorm: 148239 1 Tablet(s) PO QD 09/2310/11/2011 Inactive TAKE ONE TABLET BY MOUTH GLYNN RY DAY Prevacid 30 mg Cap RxNorm: 496429 Capsule(s) PO 10/12/2011 01/25/2012 Inactive TAKE ONE CAPSULE BY MOUTH EVERY DAY Symbicort 160 mcg-4.5 mcg/actuation HFA Aerosol Inhaler RxNo rm: 1567189 2 Puff(s) INH BID 10/12/2011 05/08/2012 Inactive INHALE 2 PUFFS O RALLY TWO TIMES A DAY gabapentin 800 mg Tab RxNorm: 198172 1 Tablet(s) PO QD 10/12/2011 Inactive TAKE ONE TABLET BY MOUTH EVERY DAY MS Contin 200 mg Tab RxNorm: 652886 1 Tablet(s) PO BID 09/23/201111/2010 Inactive Endocet 10 mg-325 mg Tab RxNorm: 8753058 1-2 Tablet(s) PO Q4H 09/2310/22/2011 Inactive PRN PAIN Endocet 10 mg-325 mg Tab RxNorm: 5871921 1-2 Tablet(s) PO Q4H 08/2109/19/2011 Inactive PRN PAIN MS Contin 200 mg Tab RxNorm: 331434 1 Tablet(s) PO BID 08/21/2011 Inactive Diflucan 100 mg Tab RxNorm: 791132 1 Tablet(s) PO QD 08/10/201108/16 Inactive cefdinir 300 mg Cap RxNorm: 875869 2 Capsule(s) PO QD 08/10/201107/24 Inactive Reglan 10 mg Tab RxNorm: 531656 1 Tablet(s) PO AC & HS 07/15/2011 Inactive Endocet 10 mg-325 mg Tab RxNorm: 9335467 1-2 Tablet(s) PO Q4H 07/1508/13/2011 Inactive PRN PAIN One Touch Ultra Test strips RxNorm: Miscellaneous BID 06/11/2011 1 01/16/2014 Inactive TEST TWO TIMES A DAY lactulose 10 gram/15 mL Oral Soln RxNorm: 477175 Milliliter(s) PO 0 06/10/2011 10/11/2011 Inactive TAKE 1 TABLESPOON BY MOUTH O NCE DAILY Chantix Continuing Month Aníbal 1 mg Tab RxNorm: 572498 Tablet(s) PO 0 06/10/2011 11/02/2011 Inactive TAKE DIRECTED - PER [employer] GE INSTRUCTIONS fluoxetine 40 mg Cap RxNorm: 396134 Capsule(s) PO 06/10/2011 02/02/20 12 Inactive TAKE ONE CAPSULE BY MOUTH EVERY MORNING Chantix Continuing Month Aníbal 1 mg Tab RxNorm: 493324 Ta blet(s) PO TAKE DIRECTED - PER PACKAGE INSTRUCTIONS 05/13/2011 06/09/2011 Inactive Soma 350 mg Tab RxNorm: 224245 Tablet(s) PO TAKE ON E TABLET BY MOUTH THREE TIMES A DAY 05/13/2011 04/18/2012 Inactive Chantix Continuing Month Aníbal 1 mg Tab RxNorm: 065676 Ta blet(s) PO as directed per package instructions. 04/22/2011 05/12/2011 Inactive Symbicort 160 mcg-4.5 mcg/Actuation HFA Aerosol Inhaler RxNo rm: [id number] HFA Aerosol Inhaler INH INHALE 2 PUFFS ORALLY TWO TIMES A DAY 04/13/2011 Inactive Synthroid 112 mcg Tab RxNorm: 622779 Tablet(s) PO TAKE ONE TABLET BY MOUTH EVERY DAY 04/13/2011 10/12/2011 Inactive Premarin 0.9 mg Tab RxNorm: 674360 Tablet(s) PO TAKE ON E TABLET BY MOUTH EVERY DAY 04/13/2011 10/12/2011 Inactive gabapentin 800 mg Tab RxNorm: 124465 Tablet(s) PO TAKE ONE TABLET BY MOUTH EVERY DAY 04/13/2011 10/12/2011 Inactive Prevacid 30 mg Cap RxNorm: 329004 1 Capsule(s) PO QD 04/13/201110/11 Inactive Spiriva with HandiHaler 18 mcg & inhalation Caps RxNorm: 580 261 Capsule(s) INH INHALE CONTENTS OF 1 CAPSULE(S) WITH HANDIHALER ONCE DAILY 04/13/2011 12/21/2011 Inactive metformin ER 500 mg 24 hr Tab RxNorm: 409109 Tablet(s) PO TAKE ONE TABLET BY MOUTH EVERY DAY 04/13/2011 10/12/2011 Inactive Soma 350 mg Tab RxNorm: 924484 1 Tablet(s) PO QID 03/30/2011 02/13/20 19 Inactive fluoxetine 20 mg Cap RxNorm: 670149 Capsule(s) PO TAKE ONE CAPSULE BY MOUTH EVERY DAY 03/25/2011 10/12/2011 Inactive cefdinir 300 mg Cap RxNorm: 321429 2 Capsule(s) PO QD 03/19/201105/2011 Inactive 16.2 mg-0.1037 mg-0.0194 mg Tab RxNorm: 5019096 2 Tablet(s) PO TID PRN for gas and cramping 03/16/2011 07/13/2011 Inactive Soma 350 mg Tab RxNorm: 867401 2 Tablet(s) PO TID 03/16/2011 03/29/20 11 Inactive Chantix Starting Month Aníbal 0.5 mg (11)-1 mg (3x14) Tab s in a Dose Pack RxNorm: 438986 Tablet(s) PO as directed 03/02/2011 No Stop Date Active diazepam 10 mg Tab RxNorm: 811285 1 Tablet(s) PO BID 02/10/201101/19 Inactive Zofran 4 mg tablet RxNorm: 335524 1 Tablet(s) PO Q4H prn nausea 02/16/2011 Inactive Diflucan 100 mg Tab RxNorm: 167059 1 Tablet(s) PO QD 01/18/201101/24 Inactive Premarin 0.625 mg/g Vaginal Cream RxNorm: 176873 VAG In sert 1gm vaginally at bedtime 3 times weekly 01/18/2011 02/12/2019 Inactive loratadine 10 mg Tab RxNorm: 4560340 1 Tablet(s) PO QD 12/17/201003/2012 Inactive Spiriva with HandiHaler 18 mcg & inhalation Caps RxNorm: 580 261 1 Capsule(s) INH QD 12/17/2010 04/12/2011 Inactive Diflucan 100 mg Tab RxNorm: 587274 1 Tablet(s) PO QD 12/17/201012/23 Inactive diazepam 10 mg Tab RxNorm: 651633 1 Tablet(s) PO BID and PRN 201002/12/2019 Inactive One Touch Ultra Test Strips RxNorm: InVt BID Zainab t blood sugar at least twice daily. 11/11/2010 06/11/2011 Inactive fluoxetine 40 mg Cap RxNorm: 812736 1 Capsule(s) PO QAM 11/11/2010 Inactive diazepam 10 mg Tab RxNorm: 191618 1 Tablet(s) PO BID and PRN 200911/12/2010 Inactive Bactrim DS 800 mg-160 mg Tab RxNorm: 053610 1 Tablet(s) PO BID 09/2210/15/2010 Inactive fluoxetine 20 mg Cap RxNorm: 525119 1 Capsule(s) PO QD 10/02/201008/2011 Inactive Bactrim DS 800 mg-160 mg Tab RxNorm: 681420 1 Tablet(s) PO BID 01/201010/03/2010 Inactive Zofran 4 mg Tab RxNorm: 701396 1 Tablet(s) PO Q4H prn nausea 200910/16/2010 Inactive 16.2 mg-0.1037 mg-0.0194 mg Tab RxNorm: 4970026 2 Tablet(s) PO TID PRN for gas and cramping 09/17/2010 10/21/2010 Inactive Gabapentin 800 mg Tab RxNorm: 785865 1 Tablet(s) PO QD 09/16/2010 Inactive ProAir HFA 90 mcg/Actuation Aerosol Inhaler RxNorm: 213475 2 Puff(s) INH Q4H prn shortness of breath 09/15/2010 12/13/2010 Inactive gabapentin 800 mg Tab RxNorm: 688195 1 Tablet(s) PO QD 09/15/2010 Inactive Prevacid 30 mg Cap RxNorm: 107981 1 Capsule(s) PO QD 09/15/201004/12 Inactive loratadine 10 mg Tab RxNorm: 3141789 1 Tablet(s) PO QD 09/15/2010 Inactive Premarin 0.9 mg Tab RxNorm: 533901 1 Tablet(s) PO QD 09/15/201004/12 Inactive Synthroid 112 mcg Tab RxNorm: 818193 1 Tablet(s) PO QD 09/15/2010 Inactive metformin ER 500 mg 24 hr Tab RxNorm: 085194 1 Tablet(s) PO QD 08/2304/12/2011 Inactive Symbicort 160 mcg-4.5 mcg/Actuation Inhalation HFA Aer osol Inhaler RxNorm: 0624973 2 Puff(s) INH BID 09/15/2010 04/12/2011 Inactive diazepam 10 mg Tab RxNorm: 531053 1 Tablet(s) PO BID and PRN 200910/13/2010 Inactive Phentermine 37.5 mg Cap RxNorm: 100569 1 Capsule(s) PO QD 09/02/2010 11/02/2011 Inactive ProAir HFA 90 mcg/Actuation Aerosol Inhaler RxNorm: 056920 2 Puff(s) INH Q4H prn shortness of breath 08/07/2010 No Stop Date Active Premarin 0.9 mg Tab RxNorm: 898128 1 Tablet(s) PO QD 08/07/201009/14 Inactive Loratadine 10 mg Tab RxNorm: 8393511 1 Tablet(s) PO QD 08/07/2010 Inactive Lactulose 10 gram/15 mL Oral Soln RxNorm: 392578 1 Unit Dose PO QD 08/07/2010 02/12/2019 Inactive Zofran 4 mg Tab RxNorm: 947752 1 Tablet(s) PO Q4H prn nausea 2009 No Stop Date Active Gabapentin 800 mg Tab RxNorm: 431012 1 Tablet(s) PO QD 08/07/2010 Inactive Synthroid 112 mcg Tab RxNorm: 583608 1 Tablet(s) PO QD 08/07/2010 Inactive Metformin ER 500 mg 24 hr Tab RxNorm: 292228 1 Tablet(s) PO QD 07/2309/14/2010 Inactive Vitamin D 1,000 unit Tab RxNorm: 279094 1 Tablet(s) PO TID 08/07/2002/12/2019 Inactive Symbicort 160 mcg-4.5 mcg/Actuation Inhalation HFA Aer osol Inhaler RxNorm: 0873426 2 Puff(s) INH BID 08/07/2010 09/14/2010 Inactive Prevacid 30 mg Cap RxNorm: 394188 1 Capsule(s) PO QD 08/07/201009/14 Inactive Metformin ER 500 mg 24 hr Tab RxNorm: 469700 1 Tablet(s) PO QD 06/2308/06/2010 Inactive Vitamin D 1,000 unit Tab RxNorm: 013072 1 Tablet(s) PO TID 07/14/2008/06/2010 Inactive Synthroid 112 mcg Tab RxNorm: 370037 1 Tablet(s) PO QD 07/14/2010 Inactive Lactulose 10 gram/15 mL Oral Soln RxNorm: 790019 1 Unit Dose PO QD 07/14/2010 08/06/2010 Inactive Levaquin 500 mg Tab RxNorm: 776107 1 Tablet(s) PO QD 07/14/201007/27 Inactive Premarin 0.9 mg Tab RxNorm: 033178 1 Tablet(s) PO QD 07/14/201008/06 Inactive ProAir HFA 90 mcg/Actuation Aerosol Inhaler RxNorm: 433319 2 Puff(s) INH Q4H prn shortness of breath 07/14/2010 No Stop Date Active Prevacid 30 mg Cap RxNorm: 742204 1 Capsule(s) PO QD 07/14/201008/06 Inactive Zofran 4 mg Tab RxNorm: 279321 1 Tablet(s) PO Q4H prn nausea 2009 No Stop Date Active Symbicort 160 mcg-4.5 mcg/Actuation Inhalation HFA Aer osol Inhaler RxNorm: 7113315 2 Puff(s) INH BID 07/14/2010 08/06/2010 Inactive Loratadine 10 mg Tab RxNorm: 5253202 1 Tablet(s) PO QD 07/14/2010 Inactive Gabapentin 800 mg Tab RxNorm: 924806 1 Tablet(s) PO QD 07/14/2010 Inactive Metformin ER 500 mg 24 hr Tab RxNorm: 450398 1 Tablet(s) PO 010 07/13/2010 Inactive Diazepam 10 mg Tab RxNorm: 643566 1 Tablet(s) PO BID and PRN 200909/06/2010 Inactive Premarin 0.9 mg Tab RxNorm: 351657 1 Tablet(s) PO QD 06/09/201007/13 Inactive Zofran 4 mg Tab RxNorm: 638828 1 Tablet(s) PO Q4H prn nausea 2009 No Stop Date Active ProAir HFA 90 mcg/Actuation Aerosol Inhaler RxNorm: 200482 2 Puff(s) INH Q4H prn shortness of breath 06/09/2010 No Stop Date Active Gabapentin 800 mg Tab RxNorm: 604292 1 Tablet(s) PO QD 06/09/2010 Inactive Loratadine 10 mg Tab RxNorm: 5564106 1 Tablet(s) PO QD 06/09/2010 Inactive Lactulose 10 gram/15 mL Oral Soln RxNorm: 889907 1 Unit Dose PO QD 06/09/2010 07/13/2010 Inactive Prevacid 30 mg Cap RxNorm: 184745 1 Capsule(s) PO QD 06/09/201007/13 Inactive Synthroid 112 mcg Tab RxNorm: 255229 1 Tablet(s) PO QD 06/09/2010 Inactive Symbicort 160 mcg-4.5 mcg/Actuation Inhalation HFA Aer osol Inhaler RxNorm: 0530355 2 Puff(s) INH BID 06/09/2010 07/13/2010 Inactive Omnicef 300 mg Cap RxNorm: 107677 2 Capsule(s) PO QD 05/07/201005/20 Inactive Metformin 500 mg Tab RxNorm: 360790 1 Tablet(s) PO QD 05/06/201005/22 Inactive ProAir HFA 90 mcg/Actuation Aerosol Inhaler RxNorm: 914185 2 Puff(s) INH Q4H prn shortness of breath 05/06/2010 No Stop Date Active lactulose 10 gram/15 mL Oral Soln RxNorm: 859204 1 Unit Dose PO QD 05/06/2010 06/10/2011 Inactive Loratadine 10 mg Tab RxNorm: 1511015 1 Tablet(s) PO QD 05/06/2010 Inactive Synthroid 112 mcg Tab RxNorm: 317023 1 Tablet(s) PO QD 05/06/2010 Inactive Symbicort 160 mcg-4.5 mcg/Actuation Inhalation HFA Aer osol Inhaler RxNorm: 1972180 2 Puff(s) INH BID 05/06/2010 06/08/2010 Inactive Gabapentin 800 mg Tab RxNorm: 228012 1 Tablet(s) PO QD 05/06/2010 Inactive 16.2 mg-0.1037 mg-0.0194 mg Tab RxNorm: 3459075 2 Tablet(s) PO TID PRN for gas and cramping 05/06/2010 05/12/2010 Inactive Zofran 4 mg Tab RxNorm: 882307 1 Tablet(s) PO Q4H prn nausea 200904/13/2010 Inactive MS Contin 60 mg Tab RxNorm: 912261 3 Tablet(s) PO BID 04/09/201004/22 Inactive Soma 350 mg Tab RxNorm: 333490 2 Tablet(s) PO TID 04/09/2010 05/08/20 10 Inactive Symbicort 160 mcg-4.5 mcg/Actuation Inhalation HFA Aer osol Inhaler RxNorm: 2222651 2 Puff(s) INH BID 04/08/2010 05/05/2010 Inactive Doxycycline 100 mg Cap RxNorm: 9470947 1 Capsule(s) PO BID 04/08/20 10 04/17/2010 Inactive Triamterene-Hydrochlorothiazide 37.5 mg-25 mg Cap RxNorm: 19 8316 1 Capsule(s) PO QAM 04/08/2010 09/04/2010 Inactive fluoxetine 40 mg Cap RxNorm: 076280 1 Capsule(s) PO QAM 04/08/2010 Inactive Morphine SR 120 mg multiphase 24 hr Cap RxNorm: 121828 1 Capsul e(s) PO 03/11/2010 04/07/2010 Inactive Endocet 10 mg-325 mg Tab RxNorm: 7876108 1-2 Tablet(s) PO Q4H MO N PAIN 03/11/2010 04/09/2010 Inactive Savella 100 mg Tab RxNorm: 608398 1 Tablet(s) PO BID 03/10/201004/09 Inactive Soma 350 mg Tab RxNorm: 336207 1 Tablet(s) PO TID prn spasm 010 04/09/2010 Inactive Savella 100 mg Tab RxNorm: 172737 1 Tablet(s) PO BID 02/03/201004/09 Inactive Aspirin 81 mg Tab RxNorm: 613791 1 Tablet(s) PO QD No Start Date Active Zyrtec 10 mg Tab RxNorm: 6410362 1 Tablet(s) PO QD No Start Date Active One Touch Ultra Test Strips RxNorm: Misc test at least t wice daily. No Start Date Active coenzyme Q10 200 mg capsule RxNorm: 678467 1 Capsule(s) PO QD No Star t Date Active One Touch Ultra Test Strips RxNorm: InVt BID Zainab t blood sugar at least twice daily. No Start Date 11/10/2010 Inactive Gabapentin 800 mg Tab RxNorm: 341828 1 Tablet(s) PO QD No Start Date 05/05/2010 Inactive Abilify 5 mg tablet RxNorm: 036217 1 Tablet(s) PO QD No Start Date Inactive Chantix 1 mg Tab RxNorm: 284394 1 Tablet(s) PO BID No Start Date 10/22 Inactive Ozempic 0.25 mg or 0.5 mg (2 mg/1.5 mL) subcutaneous p en injector RxNorm: 8327490 .25 Milligram(s) SQ QW No Start Date 07/04/2019 Inactive lancets 28 gauge RxNorm: Miscellaneous As needed for blo od glucose sticks No Start Date 08/23/2013 Inactive potassium chloride ER 20 mEq tablet,extended release RxNorm: 967615 2 Tablet(s) PO QD No Start Date 09/26/2018 Inactive Ventolin HFA 90 mcg/actuation Aerosol Inhaler RxNorm: 839540 2 Puff(s) INH Q4H prn No Start Date 01/17/2012 Inactive potassium chloride ER 20 mEq tablet,extended release RxNorm: 107985 2 Tablet(s) PO QD No Start Date 10/19/2018 Inactive Januvia 100 mg tablet RxNorm: 480174 1 Tablet(s) PO QD No Start Date 09/10/2015 Inactive Medrol (Aníbal) 4 mg Tabs in a Dose Pack RxNorm: 440736 Tablet(s) PO N o Start Date 08/09/2011 Inactive as directed Zithromax Z-Aníbal 250 mg Tab RxNorm: 848406 Tablet(s) PO No Start Date 01/25/2012 Inactive as directed vitamin B6-vitamin E-magnesium tablet RxNorm: 1 Tablet(s ) PO QHS with INH No Start Date 03/30/2018 Inactive prednisone 20 mg Tab RxNorm: 995355 1 Tablet(s) PO TID for 1wk then 1 po BID for 1wk No Start Date 01/25/2012 Inactive furosemide 40 mg tablet RxNorm: 488689 1 Tablet(s) PO QAM No Start Date 10/09/2018 Inactive Vitamin D3 1000 units Capsule RxNorm: 1 Capsule(s) PO TID No S tart Date 03/19/2015 Inactive Zofran 4 mg Tab RxNorm: 852413 1 Tablet(s) PO Q4H prn nausea No Sta rt Date 04/13/2010 Inactive Premarin 0.625 mg/g Vaginal Cream RxNorm: 675770 1 Gram (s) VAG QHS 3 times a week No Start Date 09/22/2017 Inactive oxycodone 10 mg tablet RxNorm: 9131899 1-2 Tablet(s) PO QID as n eeded for pain No Start Date 11/04/2015 Inactive Nicoderm CQ 21 mg/24 hr daily Patch RxNorm: 847333 1 Applicatio n TD QD No Start Date 08/05/2015 Inactive Topamax 50 mg tablet RxNorm: 819791 1/2 Tablet(s) PO QH S for 1wk then 1 po q HS for 1wk then 2 po q HS No Start Date 06/27/2012 Inactive Chantix Starting Month Aníbal 0.5 mg (11)-1 mg (3x14) Tab s in a Dose Pack RxNorm: 671085 Tablet(s) PO as directed No Start Date 03/01/2011 Inactive Trulicity 0.75 mg/0.5 mL subcutaneous pen injector RxNorm: 1 948059 Milliliter(s) SQ No Start Date 07/04/2019 Inactive Medrol (Aníbal) 4 mg Tabs in a Dose Pack RxNorm: 304560 Tablet(s) PO N o Start Date 01/25/2012 Inactive as directed Duragesic 100 mcg/hr Transderm Patch RxNorm: 791356 2 A pplication TD Q48H for pain No Start Date 09/05/2013 Inactive Premarin 0.9 mg Tab RxNorm: 839420 1 Tablet(s) PO QD No Start Date Inactive Zithromax Z-Aníbal 250 mg Tab RxNorm: 787686 Tablet(s) PO as direc chinmay No Start Date 01/25/2012 Inactive ondansetron 8 mg disintegrating tablet RxNorm: 484856 1 Tablet(s) PO Q6H as needed No Start Date 10/10/2018 Inactive oxycodone 15 mg tablet RxNorm: 1846299 1 Tablet(s) PO QID as nee ded for pain No Start Date 03/05/2019 Inactive ProAir HFA 90 mcg/Actuation Aerosol Inhaler RxNorm: 707713 2 Puff(s) INH Q4H prn for wheezing or shortness of breath No Start Date 12/21/2011 Inactive pravastatin 40 mg tablet RxNorm: 743096 1/2 Tablet(s) PO QOD No Sta rt Date 04/09/2015 Inactive ipratropium-albuterol 0.5 mg-3 mg(2.5 mg base)/3 mL ne bulization soln RxNorm: 8005888 1 Unit Dose INH Q4H as needed No Start Date 09/09/2016 Inactive furosemide 40 mg tablet RxNorm: 176996 1 Tablet(s) PO QAM as ne eded No Start Date 09/24/2019 Inactive Vitamin D2 oral RxNorm: 4018 oral No Start Date 03/18/2015 Inacti ve pravastatin 40 mg tablet RxNorm: 353561 1/2 Tablet(s) PO QD No Star t Date 04/09/2015 Inactive ondansetron HCl 4 mg tablet RxNorm: 442262 1 Tablet(s) PO Q4H as needed for nausea and vomiting No Start Date 04/07/2016 Inactive furosemide 40 mg tablet RxNorm: 235365 2 Tablet(s) PO QAM No Start Date 09/26/2018 Inactive gabapentin 800 mg tablet RxNorm: 145479 1/2 Tablet(s) PO BID No Sta rt Date 06/21/2017 Inactive gabapentin 800 mg tablet RxNorm: 620394 1/2 Tablet(s) PO BID No Sta rt Date 07/05/2017 Inactive ProAir HFA 90 mcg/Actuation Aerosol Inhaler RxNorm: 151758 2 Puff(s) INH Q4H prn shortness of breath No Start Date 05/05/2010 Inactive scopolamine 1 mg over 3 days transdermal patch RxNorm: 98994 2 1 Application TD behind ear. Take off after three days No Start Date 10/10/2018 Inactive Metformin 500 mg Tab RxNorm: 465544 1 Tablet(s) PO QD No Start Date 0 05/05/2010 Inactive MS Contin 200 mg Tab RxNorm: 384269 1 Tablet(s) PO BID No Start Date 08/20/2011 Inactive Belladonna-Phenobarbital 48 mg tablet,extended release RxNor m: 2 Tablet(s) PO TID No Start Date 06/04/2016 Inactive Synthroid 112 mcg Tab RxNorm: 607132 1 Tablet(s) PO QD No Start Date 05/05/2010 Inactive Zegerid 40 mg-1.1 gram Cap RxNorm: 880355 1 Capsule(s) PO QD No Sta rt Date 01/25/2012 Inactive Premarin 0.625 mg/g Vaginal Cream RxNorm: 789247 VAG In sert 1gm vaginally at bedtime 3 times weekly No Start Date 01/17/2011 Inactive potassium chloride ER 20 mEq tablet,extended release RxNorm: 142619 1 Tablet(s) PO QD No Start Date 04/24/2019 Inactive methocarbamol 750 mg tablet RxNorm: 739846 2 Tablet(s) PO TID as needed for muscle spasm No Start Date 07/08/2014 Inactive Biaxin XL Aníbal 500 mg 24 hr Tab RxNorm: 307453 Tablet(s) PO as d irected No Start Date 04/24/2013 Inactive Vitamin D3 1,000 unit tablet RxNorm: 824384 3 Tablet(s) PO QD No St art Date 06/01/2017 Inactive Morphine SR 120 mg multiphase 24 hr Cap RxNorm: 580457 1 Capsul e(s) PO BID No Start Date 04/09/2010 Inactive Silvadene 1 % topical cream RxNorm: 061285 1 Application TOP BI D to burn area No Start Date 01/31/2017 Inactive Prednisone 20 mg Tab RxNorm: 028494 1 Tablet(s) PO TID for 3days then BID for 4days No Start Date 01/25/2012 Inactive gabapentin 600 mg tablet RxNorm: 589445 1 Tablet(s) PO BID No Start Date 01/21/2015 Inactive topiramate 50 mg tablet RxNorm: 299144 1 Tablet(s) PO QHS No Start Date 03/30/2018 Inactive Januvia 100 mg tablet RxNorm: 537239 1/2 Tablet(s) PO QD No Start D ate 12/25/2015 Inactive Diazepam 10 mg Tab RxNorm: 965635 1 Tablet(s) PO BID and PRN No Sta rt Date 06/08/2010 Inactive Medication Administered No Medication Administered data Immunizations Vaccine Codes Date Status Influenza CVX: 141 09/28/2012 Pneumovax Unknown 09/28/2012 Influenza (Adult) CVX: 141 09/02/2010 Results No Results data Procedures Procedure Codes Date THER/PROPH/DIAG INJ SC/IM CPT-4: 83184 07/10/2019 METHYLPREDNISOLONE INJECTION CPT-4: J2930 07/10/2019 URINALYSIS NONAUTO W/O SCOPE CPT-4: 17442 09/06/2018 URINE CULTURE/ COLONY COUNT CPT-4: 85582 09/06/2018 DRAIN/INJECT JOINT/BURSA CPT-4: 62837 04/29/2017 TRIAMCINOLONE ACET INJ NOS CPT-4: J3301 04/29/2017 DEXAMETHASONE SODIUM PHOS CPT-4: J1100 04/29/2017 INFLUENZA ASSAY W/OPTIC CPT-4: 43584 12/01/2016 RESPIRATORY CULTURE & STAIN CPT-4: 14225 07/09/2016 TB INTRADERMAL TEST CPT-4: 14720 04/21/2016 DRAIN/INJECT JOINT/BURSA CPT-4: 61361 11/07/2013 METHYLPREDNISOLONE 40 MG INJ CPT-4: J1030 11/07/2013 TRIAMCINOLONE ACET INJ NOS CPT-4: J3301 11/07/2013 DRAIN/INJECT JOINT/BURSA CPT-4: 71423 08/08/2013 METHYLPREDNISOLONE 40 MG INJ CPT-4: J1030 08/08/2013 TRIAMCINOLONE ACET INJ NOS CPT-4: J3301 08/08/2013 FLU VACCINE 3 YRS & > IM UP 64 CPT-4: 87249 2 PNEUMOCOCCAL VACC 23 ADITYA IM CPT-4: 33055 09/28/2012 IMMUNIZATION ADMIN CPT-4: 38307 09/28/2012 IMMUNIZATION ADMIN EACH ADD CPT-4: 00414 09/28/2012 FLU VACCINE 3 YRS & > IM UP 64 CPT-4: 22202 0 IMMUNIZATION ADMIN CPT-4: 50234 09/02/2010 METHYLPREDNISOLONE INJECTION CPT-4: J2930 05/07/2010 THER/PROPH/DIAG INJ SC/IM CPT-4: 80580 05/07/2010 Vital Signs Date Vital 11/29/2019 Blood [...] 1: 122/78 Code: 8480-6 BMI: 29.5 Code: 33579-7 Heart Rate 1: 76 bpm Height: 5'4" Respiratory Rate: 20 bpm SpO2: 96% Tempera ture: 37.0 (C) / 98.6 (F) Weight: 172 lbs 01/25/2019 Blood Pressure 1: 132/80 Code: 8480-6 BMI: 29.7 Code: 49117-0 Heart Rate 1: 84 bpm Height: 5'4" Respiratory Rate: 22 bpm SpO2: 98% Tempera ture: 36.9 (C) / 98.4 (F) Weight: 173 lbs 01/03/2019 Blood Pressure 1: 116/70 Code: 8480-6 BMI: 29.5 Code: 85311-7 Heart Rate 1: 92 bpm Height: 5'4" Respiratory Rate: 24 bpm SpO2: 98% Tempera ture: 37.2 (C) / 98.9 (F) Weight: 172 lbs 11/21/2018 Blood Pressure 1: 146/82 Code: 8480-6 BMI: 28.2 Code: 00980-2 Heart Rate 1: 88 bpm Height: 5'4" Respiratory Rate: 22 bpm SpO2: 97% Tempera ture: 36.9 (C) / 98.4 (F) Weight: 164 lbs 10/27/2018 Blood Pressure 1: 122/70 Code: 8480-6 BMI: 27.6 Code: 17173-3 Heart Rate 1: 88 bpm Height: 5'4" Respiratory Rate: 20 bpm SpO2: 96% Tempera ture: 36.8 (C) / 98.3 (F) Weight: 161 lbs 10/18/2018 Blood Pressure 1: 126/70 Code: 8480-6 BMI: 28.3 Code: 37227-0 Heart Rate 1: 76 bpm Height: 5'4" Respiratory Rate: 20 bpm SpO2: 95% Tempera ture: 37.0 (C) / 98.6 (F) Weight: 165 lbs 09/27/2018 Blood Pressure 1: 124/78 Code: 8480-6 BMI: 27.1 Code: 50415-9 Heart Rate 1: 88 bpm Height: 5'4" Respiratory Rate: 20 bpm SpO2: 98% Tempera ture: 36.4 (C) / 97.6 (F) Weight: 158 lbs 09/14/2018 Blood Pressure 1: 140/72 Code: 8480-6 BMI: 26.1 Code: 65510-2 Heart Rate 1: 100 bpm Height: 5'4" Respiratory Rate: 20 bpm SpO2: 97% Tempera ture: 36.9 (C) / 98.4 (F) Weight: 152 lbs 09/06/2018 Blood Pressure 1: 156/82 Code: 8480-6 BMI: 26.3 Code: 27172-9 Heart Rate 1: 100 bpm Height: 5'4" Respiratory Rate: 28 bpm SpO2: 95% Tempera ture: 37.2 (C) / 98.9 (F) Weight: 153 lbs 08/16/2018 Blood Pressure 1: 130/78 Code: 8480-6 Heart Rate 1: 87 bpm Respiratory Rate: 24 bpm SpO2: 94% Temperature: 36.9 (C) / 98.4 (F) We ight: 147 lbs 8 oz 07/07/2018 Blood Pressure 1: 116/78 Code: 8480-6 BMI: 22.7 Code: 47817-8 Heart Rate 1: 88 bpm Height: 5'4" Respiratory Rate: 22 bpm SpO2: 98% Tempera ture: 36.5 (C) / 97.7 (F) Weight: 132 lbs 05/31/2018 Blood Pressure 1: 128/78 Code: 8480-6 BMI: 22.3 Code: 45144-8 Heart Rate 1: 92 bpm Height: 5'4" Respiratory Rate: 26 bpm SpO2: 94% Tempera ture: 36.7 (C) / 98.1 (F) Weight: 130 lbs 03/31/2018 Blood Pressure 1: 136/78 Code: 8480-6 BMI: 21.5 Code: 11649-8 Heart Rate 1: 76 bpm Height: 5'4" Respiratory Rate: 24 bpm SpO2: 95% Tempera ture: 36.8 (C) / 98.3 (F) Weight: 125 lbs 01/26/2018 Blood Pressure 1: 142/64 Code: 8480-6 BMI: 20.6 Code: 71117-0 Heart Rate 1: 90 bpm Height: 5'4" Respiratory Rate: 24 bpm SpO2: 92% Tempera ture: 36.3 (C) / 97.3 (F) Weight: 120 lbs 10/26/2017 Blood Pressure 1: 124/70 Code: 8480-6 BMI: 20.3 Code: 15946-6 Heart Rate 1: 76 bpm Height: 5'4" Respiratory Rate: 22 bpm SpO2: 94% Tempera ture: 36.7 (C) / 98.1 (F) Weight: 118 lbs 09/23/2017 Blood Pressure 1: 106/70 Code: 8480-6 BMI: 19.2 Code: 72995-4 Heart Rate 1: 76 bpm Height: 5'4" Respiratory Rate: 20 bpm SpO2: 94% Tempera ture: 36.8 (C) / 98.3 (F) Weight: 112 lbs 08/12/2017 Blood Pressure 1: 116/68 Code: 8480-6 BMI: 20.1 Code: 28513-6 Heart Rate 1: 80 bpm Height: 5'4" Respiratory Rate: 22 bpm SpO2: 95% Tempera ture: 36.8 (C) / 98.2 (F) Weight: 117 lbs 07/06/2017 Blood Pressure 1: 136/78 Code: 8480-6 BMI: 20.6 Code: 02502-8 Heart Rate 1: 76 bpm Height: 5'4" Respiratory Rate: 24 bpm SpO2: 96% Tempera ture: 36.8 (C) / 98.2 (F) Weight: 120 lbs 06/02/2017 Blood Pressure 1: 112/70 Code: 8480-6 Heart Rate 1: 92 bpm Height: 5'4" Respiratory Rate: 24 bpm SpO2: 95% Temperature: 37.0 (C) / 98.6 (F) Weight: 04/29/2017 Blood Pressure 1: 94/52 Code: 8480-6 BMI: 19.6 C ode: 17034-7 Heart Rate 1: 84 bpm Height: 5'4" [...] 92/58 Code: 8480-6 BMI: 19.2 C ode: 36871-4 Heart Rate 1: 84 bpm Height: 5'4" Respiratory Rate: 26 bpm SpO2: 95% Tempera ture: 36.7 (C) / 98.0 (F) Weight: 112 lbs 12/01/2016 Blood Pressure 1: 114/70 Code: 8480-6 BMI: 19.2 Code: 05253-7 Heart Rate 1: 96 bpm Height: 5'4" Respiratory Rate: 28 bpm SpO2: 93% Tempera ture: 38.3 (C) / 101.0 (F) Weight: 112 lbs 10/27/2016 Blood Pressure 1: 126/66 Code: 8480-6 BMI: 19.6 Code: 51190-0 Heart Rate 1: 92 bpm Height: 5'4" Respiratory Rate: 28 bpm SpO2: 90% Tempera ture: 36.8 (C) / 98.3 (F) Weight: 114 lbs 09/09/2016 Blood Pressure 1: 126/74 Code: 8480-6 Heart Rate 1: 104 bpm Height: 5'4" Respiratory Rate: 32 bpm SpO2: 88% Temperature: 37 .2 (C) / 99.0 (F) 08/26/2016 Blood Pressure 1: 134/82 Code: 8480-6 BMI: 22.0 Code: 87827-8 Heart Rate 1: 84 bpm Height: 5'4" Respiratory Rate: 24 bpm SpO2: 94% Tempera ture: 36.8 (C) / 98.3 (F) Weight: 128 lbs 05/21/2016 Blood Pressure 1: 142/80 Code: 8480-6 BMI: 21.6 Code: 01310-6 Heart Rate 1: 104 bpm Height: 5'4" Respiratory Rate: 22 bpm SpO2: 93% Tempera ture: 36.0 (C) / 96.8 (F) Weight: 126 lbs 03/25/2016 Blood Pressure 1: 126/62 Code: 8480-6 Heart Rate 1: 88 bpm Respiratory Rate: 20 bpm SpO2: 92% Temperature: 36.8 (C) / 98.3 (F) We ight: 130 lbs 01/23/2016 Blood Pressure 1: 146/82 Code: 8480-6 BMI: 24.1 Code: 32597-7 Heart Rate 1: 92 bpm Height: 5'3" Respiratory Rate: 22 bpm Temperature: 37 .1 (C) / 98.8 (F) Weight: 136 lbs 12/26/2015 Blood Pressure 1: 142/78 Code: 8480-6 BMI: 24.6 Code: 29882-6 Heart Rate 1: 78 bpm Height: 5'3" Respiratory Rate: 20 bpm Temperature: 36 .7 (C) / 98.1 (F) Weight: 139 lbs 12/03/2015 Blood Pressure 1: 126/60 Code: 8480-6 BMI: 24.6 Code: 93836-7 Heart Rate 1: 100 bpm Height: 5'3" Respiratory Rate: 28 bpm Temperature: 37 .6 (C) / 99.6 (F) Weight: 139 lbs 09/10/2015 Blood Pressure 1: 124/64 Code: 8480-6 BMI: 23.7 Code: 10886-0 Heart Rate 1: 88 bpm Height: 5'3" Respiratory Rate: 24 bpm SpO2: 95% Tempera ture: 36.4 (C) / 97.6 (F) Weight: 134 lbs 08/06/2015 Blood Pressure 1: 114/76 Code: 8480-6 BMI: 23.2 Code: 31995-2 Heart Rate 1: 88 bpm Height: 5'3" Respiratory Rate: 22 bpm Temperature: 36 .6 (C) / 97.9 (F) Weight: 131 lbs 07/18/2015 Blood Pressure 1: 144/78 Code: 8480-6 BMI: 23.7 Code: 21159-5 Heart Rate 1: 84 bpm Height: 5'3" Respiratory Rate: 20 bpm Temperature: 37 .2 (C) / 99.0 (F) Weight: 134 lbs 04/10/2015 Blood Pressure 1: 110/64 Code: 8480-6 Heart Rate 1: 80 bpm Height: Respiratory Rate: 20 bpm Temperature: 37.1 (C) / 98.8 (F) Weight: 03/05/2015 Blood Pressure 1: 136/80 Code: 8480-6 BMI: 23.9 Code: 83683-3 Heart Rate 1: 76 bpm Height: 5'3" Respiratory Rate: 24 bpm Temperature: 37 .0 (C) / 98.6 (F) Weight: 135 lbs 01/30/2015 Blood Pressure 1: 142/80 Code: 8480-6 BMI: 23.0 Code: 36563-8 Heart Rate 1: 96 bpm Height: 5'3" Respiratory Rate: 22 bpm Temperature: 36 .2 (C) / 97.2 (F) Weight: 130 lbs 01/02/2015 Blood Pressure 1: 124/70 Code: 8480-6 BMI: 23.4 Code: 88868-3 Heart Rate 1: 84 bpm Height: 5'3" Respiratory Rate: 24 bpm SpO2: 95% Tempera ture: 36.9 (C) / 98.5 (F) Weight: 132 lbs 10/03/2014 Blood Pressure 1: 106/68 Code: 8480-6 BMI: 22.5 Code: 34218-9 Heart Rate 1: 88 bpm Height: 5'3" Respiratory Rate: 24 bpm Temperature: 37 .0 (C) / 98.6 (F) Weight: 127 lbs 08/27/2014 Blood Pressure 1: 124/68 Code: 8480-6 BMI: 21.1 Code: 69794-7 Heart Rate 1: 88 bpm Height: 5'3" [...] 1: 120/70 Code: 8480-6 BMI: 19.2 Code: 40847-4 Heart Rate 1: 70 bpm Height: 5'4" Respiratory Rate: 20 bpm Temperature: 36 .9 (C) / 98.4 (F) Weight: 112 lbs 06/28/2013 Blood Pressure 1: 102/68 Code: 8480-6 BMI: 19.6 Code: 42894-1 Heart Rate 1: 76 bpm Height: 5'4" Respiratory Rate: 20 bpm Temperature: 36 .8 (C) / 98.2 (F) Weight: 114 lbs 05/31/2013 Blood Pressure 1: 106/70 Code: 8480-6 BMI: 18.9 Code: 99536-1 Heart Rate 1: 100 bpm Height: 5'4" Respiratory Rate: 20 bpm Temperature: 36 .4 (C) / 97.6 (F) Weight: 110 lbs 05/03/2013 Blood Pressure 1: 126/70 Code: 8480-6 BMI: 19.1 Code: 08213-9 Heart Rate 1: 88 bpm Height: 5'4" Respiratory Rate: 20 bpm Temperature: 37 .1 (C) / 98.8 (F) Weight: 111 lbs 04/25/2013 Blood Pressure 1: 114/68 Code: 8480-6 BMI: 19.4 Code: 54431-5 Heart Rate 1: 92 bpm Height: 5'4" Respiratory Rate: 24 bpm SpO2: 96% Tempera ture: 37.7 (C) / 99.8 (F) Weight: 113 lbs 03/08/2013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 06/28/2012 Visit Plan: Topamax from Migraine preven tion Smoking cessation 05/03/2012 Appointment: Vika Renteriatel: [address] [place], [place] [phone] 04/26/12: appt rescheduled from 04/26/12 by daughter [...] smoking cessation 03/01/2012 Appointment: Vika Renteria WPtel: [address] [place], [place] [phone] FOLLOW UP 03/01/2012 Patient Education: Patient Medication Summary Completed 03/01/2012 Visit Plan: Overnight pulse ox Smoking C essation Add Daliresp 500mg daily Hold Metformin 01/26/2012 Appointment: Vika Renteria WPtel: [address] [place], [place] [phone] FOLLOW UP 01/26/2012 Patient Education: Patient Medication Summary Completed 01/26/2012 Visit Plan: Discussed methotrexate trial , but do to chronic bronchitis pt wants to hold Smoking cessation Check CMP, CBC, TSH, Free T4, Lipids. ESR, ds DNA, JOVANNY Check EGD 11/03/2011 Appointment: Vika Renteria WPtel: [address] [place], [place] [phone] FOLLOW UP 11/03/2011 Patient Education: Patient Medication Summary Completed 11/03/2011 Appointment: Vika Renteriatel: [address] [place], [place] [phone] 08/10/2011 Patient Education: Patient Medication Summary Completed 08/10/2011 Visit Plan: Supportive care. Rest, Fluid s, Tylenol/Motrin prn fever or bodyaches. Notify if worsening symptoms. Medrol Dose Pack Smoking Cessation and recommend get rid of cat Add Reglan for stomach 07/15/2011 Appointment: Vika Renteriatel: [address] [place] [address] ACUTE ILLNESS 07/15/2011 Patient Education: Patient Medication Summary Completed 07/15/2011 Appointment: Vika Renteria WPtel: [address] [place] [address] FOLLOW UP 04/02/2011 Visit Plan: SVN with Albuterol 0.083% Q4 hrs and Q2hrs prn. Cont smoking Cessation 03/19/2011 Appointment: Vika Renteria WPtel: [address] [place] [address] ACUTE ILLNESS 03/19/2011 Patient Education: Patient Medication Summary Completed 03/19/2011 Visit Plan: Repeat Biaxin XL Cont curren t meds Repeat Chantix 01/28/2011 Appointment: Vika Renteria WPtel: [address] [place] [address] FOLLOW UP 01/28/2011 Patient Education: Patient Medication Summary Completed 01/28/2011 Patient Education: Chantix Unbranded Comp leted 01/28/2011 Appointment: Vika Renteria WPtel: [address] [place] [address] FOLLOW UP 01/14/2011 Visit Plan: Finish abx Diflucan for vagi nitis Premarin vaginal cream Smoking cessation 12/17/2010 Appointment: Vika Renteria WPtel: [address] [place] [address] Follow Up 12/17/2010 Patient Education: Patient Medication Summary Completed 12/17/2010 Appointment: Vika Renteria WPtel: [address] [place] [address] FOLLOW UP 11/06/2010 Visit Plan: Start PT Use SVNs every 4hrs Smoking Cessation Change MS Contin to 200mg q 12hrs 2010 Appointment: Vika Renteria WPtel: [address] [place], [place] [phone] FOLLOW UP 2010 Patient Education: Patient Medication Summary Completed 2010 Visit Plan: Prednisone taper for pain an d lungs 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 Increase fluoxetine to 60mg QD for acute stress reaction 10/02/2010 Appointment: Vika Renteria WPtel: [address] [place] [address] FOLLOW UP 10/02/2010 Patient Education: Patient Medication Summary Completed 10/02/2010 Visit Plan: Check CT Head, Cervical, Tho racic, and Lumbar Spine Cont current meds Bactrim for left toe 09/24/2010 Appointment: Vika Renteria WPtel: [address] [place], [place] [phone] CHECK UP 09/24/2010 Patient Education: Patient Medication Summary Completed 09/24/2010 Appointment: Vika Renteria WPtel: [address] [place] [address] FOLLOW UP 09/02/2010 Patient Education: Patient Medication Summary Completed 09/02/2010 Visit Plan: Return for 2nd epidural Obse rve right leg lesion Cont Symbicort and Spiriva 07/14/2010 Appointment: Vika Renteria WPtel: [address] [place], [place] [phone] [place] FOLLOW UP 07/14/2010 Patient Education: Patient Medication Summary Completed 07/14/2010 Appointment: Vika Renteria WPtel: [address] [place], [place] [phone] [place] FOLLOW UP 05/27/2010 Appointment: Vika Renteria WPtel: [address] [place], [place] [phone] [place] FOLLOW UP 05/14/2010 Visit Plan: SVN with Albuterol 0.083% Q4 hrs and Q2hrs prn. Restart Spiriva Smoking Cessation 05/07/2010 Appointment: Vika Renteria WPtel: [phone] [phone] FOLLOW UP 05/07/2010 Patient Education: Patient Medication Summary Completed 05/07/2010 Appointment: Vika Renteria WPtel: [phone] [phone] ACUTE ILLNESS 04/08/2010 Patient Education: Patient Medication Summary Completed 04/08/2010 Referral: Kyle Billings WPtel: [phone] [facility] [place] Referral Completed Referral: Jaylan Matute WPtel: [address] [facility] [address] [id number] [place] Referral Initiated Referral: Kyle Billings WPtel: [phone] [address] [place] Referral Appointment Requested Instructions Comment . [...]
--- OUTSIDE RECORDS SUMMARY | 2020-04-24 22:01 | XMS REPORT | CCD ---
Author Author Yana Renteria D.O. Organization [facility] Address [address] [place] [address] Phone Care Team Providers Care Turn Supervisor Name Role Phone Vika Renteria D.O., PP Unavailable CCM Unavailable Summary Purpose Interface Exchange Insurance Providers Payer name Policy type / Coverage type Covered green party ID Effective Begin Date Effective End Date [employer] [facility] [place] Medicaid [id number] 2018 U nknown Family History Family History data not found Social History Social History Element Codes Description Effective Dates Marital status Unknown 06/28/[address]: [id number] Currently smokes tobacco 05/2013 Allergies, Adverse Reactions, [...] Fill Instructions cyclobenzaprine 10 mg tablet RxNorm: 185299 TAKE ONE TA BLET BY MOUTH THREE TIMES A DAY NEEDED 04/11/2020 No Stop Date Active potassium chloride ER 20 mEq tablet,extended release RxNorm: 874678 TAKE ONE TABLET BY MOUTH DAILY 04/11/2020 No Stop Date Active ProAir HFA 90 mcg/actuation aerosol inhaler RxNorm: 777973 INHALE ONE PUFF BY MOUTH EVERY 4 HOURS FOR WHEEZING OR FOR SHORTNESS OF BREATH 04/11/2020 No Stop Date Active Daliresp 500 mcg tablet RxNorm: 1056255 TAKE ONE TABLET BY MOUTH DAILY 04/11/2020 No Stop Date Active hydroxyzine HCl 50 mg tablet RxNorm: 523178 TAKE ONE TA BLET BY MOUTH TWICE A DAY WITH MORPHINE. *REPLACES BENADRYL* 04/11/2020 No Stop Date Active fluoxetine 20 mg capsule RxNorm: 282469 1 Capsule(s) Oral QD 201905/10/2020 Active fluoxetine 20 mg capsule RxNorm: 476314 1 Capsule(s) Oral QD 201904/09/2020 Inactive levothyroxine 25 mcg tablet RxNorm: 388242 TAKE ONE TAB LET BY MOUTH EVERY MORNING 04/09/2020 No Stop Date Active metformin 500 mg tablet RxNorm: 316874 1 Tablet(s) Oral QD 04/09/20 20 07/08/2020 Active MS Contin 200 mg tablet,extended release RxNorm: 328395 1 Tablet(s) Oral two times a day 03/19/2020 04/17/2020 Active Relistor 150 mg tablet RxNorm: 6945564 TAKE THREE TABLETS BY BENOIT TH DAILY 03/13/2020 No Stop Date Active furosemide 40 mg tablet RxNorm: 289422 TAKE ONE TABLET BY MOUTH EVERY MORNING 03/13/2020 No Stop Date Active cyclobenzaprine 10 mg tablet RxNorm: 852694 TAKE ONE TA BLET BY MOUTH THREE TIMES A DAY NEEDED 03/13/2020 04/10/2020 Inactive prednisone 1 mg tablet RxNorm: 349528 1 Tablet(s) Oral two times a day to take with hydroxyzine 03/12/2020 No Stop Date Active hydroxyzine HCl 50 mg tablet RxNorm: 494580 1 Tablet(s) Oral two times a day to take with morphine--replaces benadryl 03/12/2020 04/10/2020 Inactive prednisolone 5 mg tablet RxNorm: 728721 1 Tablet(s) Oral two ti mes a day 02/22/2020 03/23/2020 Inactive prednisolone 5 mg tablet RxNorm: 524103 1 Tablet(s) Oral two ti mes a day 02/22/2020 02/21/2020 Inactive Symbicort 160 mcg-4.5 mcg/actuation HFA aerosol inhaler RxNo rm: 6532675 INHALE TWO PUFFS BY MOUTH TWICE A DAY 02/19/2020 No Stop Date Active Daliresp 500 mcg tablet RxNorm: 0958705 TAKE ONE TABLET BY MOUTH DAILY 02/19/2020 No Stop Date Active prednisone 20 mg tablet RxNorm: 064095 1 Tablet(s) Oral two yumi es a day 02/13/2020 02/20/2020 Inactive oxycodone 30 mg tablet RxNorm: 9318252 1 Tablet(s) Oral four times a day replaces MS Contin 02/13/2020 02/22/2020 Inactive levothyroxine 25 mcg tablet RxNorm: 395030 TAKE ONE TAB LET BY MOUTH EVERY MORNING 02/09/2020 04/08/2020 Inactive MS Contin 200 mg tablet,extended release RxNorm: 492794 1 Tablet(s) Oral two times a day 02/01/2020 03/01/2020 Inactive Premarin 0.45 mg tablet RxNorm: 033835 TAKE ONE TABLET BY MOUTH DAILY 01/31/2020 No Stop Date Active cyclobenzaprine 10 mg tablet RxNorm: 699536 TAKE ONE TA BLET BY MOUTH THREE TIMES A DAY NEEDED 01/31/2020 03/12/2020 Inactive metformin 500 mg tablet RxNorm: 279727 1 Tablet(s) Oral QD 01/31/2004/08/2020 Inactive gabapentin 300 mg capsule RxNorm: 631973 TAKE ONE CAPSULE BY [facility] TWICE A DAY 01/16/2020 No Stop Date Active potassium chloride ER 20 mEq tablet,extended release RxNorm: 697283 TAKE ONE TABLET BY MOUTH DAILY 01/08/2020 07/05/2020 Active ProAir HFA 90 mcg/actuation aerosol inhaler RxNorm: 434930 INHALE ONE PUFF BY MOUTH EVERY 4 HOURS FOR WHEEZING OR FOR SHORTNESS OF BREATH 01/04/2020 04/10/2020 Inactive metformin 500 mg tablet RxNorm: 278332 1 Tablet(s) Oral QD 01/04/2004/09/2020 Inactive MS Contin 200 mg tablet,extended release RxNorm: 802314 1 Tablet(s) Oral two times a day 01/02/2020 01/31/2020 Inactive Pulmicort 1 mg/2 mL suspension for nebulization RxNorm: 6168 19 USE ONE VIAL VIA NEBULIZER BY MOUTH TWICE A DAY 12/21/2019 No Stop Date Active furosemide 40 mg tablet RxNorm: 764441 TAKE ONE TABLET BY MOUTH EVERY MORNING NEEDED 12/20/2019 03/12/2020 Inactive levothyroxine 25 mcg tablet RxNorm: 538140 TAKE ONE TAB LET BY MOUTH EVERY MORNING 12/20/2019 02/08/2020 Inactive MS Contin 200 mg tablet,extended release RxNorm: 840120 1 Tablet(s) Oral two times a day 12/05/2019 01/01/2020 Inactive Medrol (Aníbal) 4 mg tablets in a dose pack RxNorm: 532646 6 Tablet(s) Oral QD --then as directed 11/30/2019 12/05/2019 Inactive MS Contin 200 mg tablet,extended release RxNorm: 654832 1 Tablet(s) Oral two times a day 11/29/2019 12/04/2019 Inactive cyclobenzaprine 10 mg tablet RxNorm: 029809 TAKE ONE TA BLET BY MOUTH THREE TIMES A DAY NEEDED 11/21/2019 01/30/2020 Inactive MS Contin 200 mg tablet,extended release RxNorm: 528414 1 Tablet(s) Oral two times a day replaces 100mg dose 11/03/2019 11/02/2019 Inactive MS Contin 200 mg tablet,extended release RxNorm: 764313 1 Tablet(s) Oral two times a day replaces 100mg dose 11/03/2019 11/29/2019 Inactive ferrous sulfate 325 mg (65 mg iron) tablet RxNorm: 014622 1 Tab let(s) Oral QD 10/30/2019 No Stop Date Active MS Contin 100 mg tablet,extended release RxNorm: 115899 1 Table t(s) Oral QD 10/30/2019 10/29/2019 Inactive MS Contin 100 mg tablet,extended release RxNorm: 125115 1 Table t(s) Oral QD 10/30/2019 11/02/2019 Inactive pantoprazole 40 mg tablet,delayed release RxNorm: 257890 1 Tabl et(s) Oral QD 10/25/2019 No Stop Date Active Minipress 2 mg capsule RxNorm: 557279 1 Capsule(s) Oral QAM and 3 at bedtime 10/25/2019 No Stop Date Active Lancets, Super Thin RxNorm: 1 Unit Dose Miscellaneous QD 9 11/27/2020 Active Relistor 150 mg tablet RxNorm: 0314467 TAKE THREE TABLETS BY BENOIT TH DAILY 10/25/2019 03/12/2020 Inactive oxycodone 15 mg tablet RxNorm: 0684851 1 Tablet(s) Oral four times a day as needed for pain 10/25/2019 11/28/2019 Inactive metformin 500 mg tablet RxNorm: 727958 1 Tablet(s) Oral QD 10/25/20 19 01/03/2020 Inactive levothyroxine 25 mcg tablet RxNorm: 598877 1 Tablet(s) Oral QAM 02/201912/19/2019 Inactive levothyroxine 25 mcg tablet RxNorm: 182607 1 Tablet(s) Oral QAM 02/201910/24/2019 Inactive MS Contin 100 mg tablet,extended release RxNorm: 315534 1 Tablet(s) Oral two times a day replaces fentanyl 10/25/2019 10/25/2019 Inactive Cymbalta 60 mg capsule,delayed release RxNorm: 448842 1 Capsule (s) Oral QAM 10/25/2019 04/09/2020 Inactive Cymbalta 30 mg capsule,delayed release RxNorm: 090193 1 Capsule (s) Oral QAM 10/25/2019 04/09/2020 Inactive Premarin 0.45 mg tablet RxNorm: 394778 TAKE ONE TABLET BY MOUTH DAILY 10/24/2019 01/30/2020 Inactive Duragesic 100 mcg/hr transdermal patch RxNorm: 940281 2 Application TD Q48H for pain 10/18/2019 10/24/2019 Inactive gabapentin 300 mg capsule RxNorm: 799103 TAKE ONE CAPSULE BY MO UTH TWICE A DAY 10/16/2019 01/15/2020 Inactive cyclobenzaprine 10 mg tablet RxNorm: 453106 TAKE ONE TA BLET BY MOUTH THREE TIMES A DAY NEEDED 09/27/2019 11/20/2019 Inactive Relistor 150 mg tablet RxNorm: 0740072 TAKE THREE TABLETS BY BENOIT TH DAILY 09/25/2019 10/24/2019 Inactive ProAir HFA 90 mcg/actuation aerosol inhaler RxNorm: 906913 INHALE ONE PUFF BY MOUTH EVERY 4 HOURS FOR WHEEZING OR FOR SHORTNESS OF BREATH 09/25/2019 01/03/2020 Inactive furosemide 40 mg tablet RxNorm: 562201 1 Tablet(s) Oral QAM as needed 09/25/2019 09/25/2019 Inactive oxycodone 15 mg tablet RxNorm: 5438243 1 Tablet(s) PO QID as nee ded for pain 09/21/2019 10/24/2019 Inactive Duragesic 100 mcg/hr transdermal patch RxNorm: 370224 2 Application TD Q48H for pain 09/19/2019 10/17/2019 Inactive Daliresp 500 mcg tablet RxNorm: 1852423 1 Tablet(s) Oral QD 019 02/18/2020 Inactive Relistor 150 mg tablet RxNorm: 9582946 TAKE THREE TABLETS BY BENOIT TH DAILY 07/25/2019 07/30/2019 Inactive cyclobenzaprine 10 mg tablet RxNorm: 256292 TAKE ONE TA BLET BY MOUTH THREE TIMES A DAY NEEDED 07/25/2019 09/22/2019 Inactive potassium chloride ER 20 mEq tablet,extended release RxNorm: 951470 TAKE ONE TABLET BY MOUTH DAILY 07/25/2019 01/07/2020 Inactive fluoxetine 40 mg capsule RxNorm: 572494 TAKE ONE CAPSULE BY BENOIT TH EVERY MORNING 07/11/2019 10/24/2019 Inactive Medrol (Aníbal) 4 mg tablets in a dose pack RxNorm: 697955 6 Tablet(s) PO QD --then as directed 07/10/2019 07/15/2019 Inactive omeprazole 40 mg capsule,delayed release RxNorm: 550714 1 Capsule(s) PO QD for stomach TAKE ONE CAPSULE BY MOUTH DAILY 07/10/2019 10/24/2019 Inactive Augmentin 875 mg-125 mg tablet RxNorm: 775773 1 Tablet(s) PO BID 07/16/2019 Inactive Trulicity 0.75 mg/0.5 mL subcutaneous pen injector RxNorm: 1 878815 0.75 Milliliter(s) SQ weekly 07/05/2019 10/24/2019 Inactive Compazine 10 mg tablet RxNorm: 947995 TAKE ONE TABLET B Y MOUTH FOUR TIMES A DAY NEEDED FOR NAUSEA 06/20/2019 07/19/2019 Inactive ProAir HFA 90 mcg/actuation aerosol inhaler RxNorm: 180637 INHALE ONE PUFF BY MOUTH EVERY 4 HOURS FOR WHEEZING OR FOR SHORTNESS OF BREATH 06/20/2019 06/23/2019 Inactive Daliresp 500 mcg tablet RxNorm: 5490814 TAKE ONE TABLET BY MOUTH DAILY 06/12/2019 09/10/2019 Inactive yjyflqev-bumygnmlw-zfneauvjt 3.5 mg/mL-10,000 unit/mL- 1 % ear solution RxNorm: 214265 4 Drop(s) otic (ear) TID to left ear 06/05/2019 10/24/2019 Inac tive furosemide 40 mg tablet RxNorm: 240216 TAKE ONE TABLET BY MOUTH EVERY MORNING 05/26/2019 07/09/2019 Inactive Duragesic 100 mcg/hr transdermal patch RxNorm: 971781 2 Application TD Q48H for pain 05/16/2019 06/14/2019 Inactive oxycodone 15 mg tablet RxNorm: 3645022 1 Tablet(s) PO QID as nee ded for pain 05/10/2019 09/20/2019 Inactive doxycycline hyclate 100 mg capsule RxNorm: 4163767 1 Capsule(s) PO BID 05/03/2019 05/12/2019 Inactive prednisone 20 mg tablet RxNorm: 466037 1 Tablet(s) PO T ID for 3 days then 1 po BID for 3 days then one daily for 3 days 05/03/2019 07/11/2019 Inactiv e Ozempic 0.25 mg or 0.5 mg (2 mg/1.5 mL) subcutaneous p en injector RxNorm: 2478419 0.5 Milligram(s) SQ QW 05/03/2019 07/09/2019 Inactive fluconazole 100 mg tablet RxNorm: 885838 1 Tablet(s) PO QD 05/03/2005/07/2019 Inactive Premarin 0.45 mg tablet RxNorm: 039765 TAKE ONE TABLET BY MOUTH DAILY 05/03/2019 10/23/2019 Inactive potassium chloride ER 20 mEq tablet,extended release RxNorm: 014814 1 Tablet(s) PO QD 04/27/2019 07/25/2019 Inactive potassium chloride ER 20 mEq tablet,extended release RxNorm: 566609 1 Tablet(s) PO QD 04/25/2019 04/26/2019 Inactive Compazine 10 mg tablet RxNorm: 952649 1 Tablet(s) PO QID as nee ded for nausea 04/25/2019 05/04/2019 Inactive ProAir HFA 90 mcg/actuation aerosol inhaler RxNorm: 091963 INHALE ONE PUFF BY MOUTH EVERY 4 HOURS FOR WHEEZING OR FOR SHORTNESS OF BREATH 04/12/2019 06/10/2019 Inactive Medrol (Aníbal) 4 mg tablets in a dose pack RxNorm: 625256 6 Tablet(s) PO QD --then as directed 04/11/2019 04/16/2019 Inactive Symbicort 160 mcg-4.5 mcg/actuation HFA aerosol inhaler RxNo rm: 0584662 2 Puff(s) INH BID 04/10/2019 10/06/2019 Inactive levothyroxine 50 mcg tablet RxNorm: 486013 1 Tablet(s) PO QD 201810/24/2019 Inactive gabapentin 300 mg capsule RxNorm: 603476 1 Capsule(s) PO BID 201810/02/2019 Inactive Symbicort 160 mcg-4.5 mcg/actuation HFA aerosol inhaler RxNo rm: 8386704 2 Puff(s) INH BID 04/06/2019 04/09/2019 Inactive oxycodone 15 mg tablet RxNorm: 7829787 1 Tablet(s) PO QID as nee ded for pain 04/05/2019 05/09/2019 Inactive levothyroxine 50 mcg tablet RxNorm: 317941 1 Tablet(s) PO QD 201804/09/2019 Inactive furosemide 40 mg tablet RxNorm: 546521 TAKE ONE TABLET BY MOUTH EVERY MORNING 03/21/2019 04/19/2019 Inactive levothyroxine 50 mcg tablet RxNorm: 900507 TAKE ONE TABLET BY M OUTH DAILY 03/21/2019 03/27/2019 Inactive Duragesic 100 mcg/hr transdermal patch RxNorm: 326957 2 Application TD Q48H for pain 03/13/2019 04/11/2019 Inactive oxycodone 15 mg tablet RxNorm: 1293997 1 Tablet(s) PO QID as nee ded for pain 03/06/2019 04/04/2019 Inactive Relistor 150 mg tablet RxNorm: 4678821 3 Tablet(s) PO QD 02/28/2019 0 05/28/2019 Inactive cyclobenzaprine 10 mg tablet RxNorm: 260223 1 Tablet(s) PO TID as needed 02/28/2019 05/28/2019 Inactive phentermine 37.5 mg tablet RxNorm: 233978 1 Tablet(s) PO QAM 201803/15/2019 Inactive Duragesic 100 mcg/hr transdermal patch RxNorm: 353533 2 Application TD Q48H for pain 02/09/2019 03/10/2019 Inactive Daliresp 500 mcg tablet RxNorm: 9904900 TAKE ONE TABLET BY MOUTH DAILY 01/31/2019 05/30/2019 Inactive Premarin 0.45 mg tablet RxNorm: 478303 1 Tablet(s) PO QD 01/31/2019 0 04/30/2019 Inactive fluoxetine 40 mg capsule RxNorm: 032329 Capsule(s) TAKE ONE CAPSULE BY MOUTH EVERY MORNING 01/31/2019 04/30/2019 Inactive levothyroxine 50 mcg tablet RxNorm: 748732 1 Tablet(s) PO QD 201804/10/2019 Inactive follow up in 3 weeks levothyroxine 50 mcg tablet RxNorm: 311544 1 Tablet(s) PO QD 201801/25/2019 Inactive follow up in 3 weeks potassium chloride ER 20 mEq tablet,extended release RxNorm: 185040 2 Tablet(s) PO BID 01/23/2019 01/08/2020 Inactive Synthroid 50 mcg tablet RxNorm: 174391 TAKE ONE TABLET BY MOUTH DAILY 01/16/2019 10/24/2019 Inactive potassium chloride ER 20 mEq tablet,extended release RxNorm: 253904 2 Tablet(s) PO BID 01/04/2019 01/22/2019 Inactive ProAir HFA 90 mcg/actuation aerosol inhaler RxNorm: 541803 INHALE ONE PUFF BY MOUTH EVERY 4 HOURS FOR WHEEZING OR SHORTNESS OF BREATH 01/04/201902/20 Inactive Request already responded to by other me ans (e.g. phone or fax) ProAir HFA 90 mcg/actuation aerosol inhaler RxNorm: 7711507 INHALE ONE PUFF BY MOUTH EVERY 4 HOURS FOR WHEEZING OR SHORTNESS OF BREATH 01/02/201912/23 Inactive gabapentin 300 mg capsule RxNorm: 333384 TAKE ONE CAPSULE BY MO UTH TWICE A DAY 12/30/2018 04/06/2019 Inactive furosemide 40 mg tablet RxNorm: 182299 1 Tablet(s) PO QAM 12/26/2018 02/23/2019 Inactive Compazine 10 mg tablet RxNorm: 383811 1 Tablet(s) PO QID as nee ded for nausea 12/07/2018 12/16/2018 Inactive metolazone 2.5 mg tablet RxNorm: 336644 TAKE ONE TABLET BY MOUT H EVERY MORNING 12/05/2018 01/03/2019 Inactive metformin ER 500 mg tablet,extended release 24 hr RxNorm: 86 0975 TAKE ONE TABLET BY MOUTH DAILY 12/05/2018 01/31/2020 Inactive Synthroid 50 mcg tablet RxNorm: 609440 1 Tablet(s) PO QD 11/25/2018 0 01/03/2019 Inactive DC any other synthroid strengths. Should be 50mcg only cyclobenzaprine 10 mg tablet RxNorm: 935307 TAKE ONE TA BLET BY MOUTH THREE TIMES A DAY NEEDED 11/09/2018 02/06/2019 Inactive metolazone 2.5 mg tablet RxNorm: 142311 1 Tablet(s) PO QAM repl aces 5mg dose 11/02/2018 12/01/2018 Inactive potassium chloride ER 20 mEq tablet,extended release RxNorm: 521000 2 Tablet(s) PO QD 2018 01/02/2019 Inactive Compazine 10 mg tablet RxNorm: 605566 1 Tablet(s) PO QID as nee ded for nausea 10/18/2018 12/07/2018 Inactive furosemide 40 mg tablet RxNorm: 262765 1 Tablet(s) PO QAM 10/12/2018 12/10/2018 Inactive ondansetron 8 mg disintegrating tablet RxNorm: 025639 1 Tablet(s) PO Q6H as needed 10/11/2018 10/17/2018 Inactive scopolamine 1 mg over 3 days transdermal patch RxNorm: 76078 2 1 Application TD behind ear. Take off after three days 10/11/2018 01/02/2019 Inactive furosemide 40 mg tablet RxNorm: 603031 1 Tablet(s) PO QAM 10/10/2018 12/26/2018 Inactive metolazone 5 mg tablet RxNorm: 255420 1 Tablet(s) PO QAM 10/06/2018 1 01/03/2018 Inactive metolazone 5 mg tablet RxNorm: 655854 1 Tablet(s) PO QAM 10/06/2018 1 12/05/2017 Inactive Xtampza ER 36 mg capsule sprinkle RxNorm: 1933873 1 Capsule(s) P O BID 10/05/2018 01/02/2019 Inactive Xtampza ER 36 mg capsule sprinkle RxNorm: 2797288 1 Capsule(s) P O BID 10/05/2018 02/12/2019 Inactive omeprazole 40 mg capsule,delayed release RxNorm: 099083 TAKE ONE CAPSULE BY MOUTH DAILY 10/03/2018 12/31/2018 Inactive Duragesic 100 mcg/hr transdermal patch RxNorm: 951593 2 Application TD Q48H for pain 09/30/2018 10/29/2018 Inactive Synthroid 50 mcg tablet RxNorm: 896130 1 Tablet(s) PO QD 09/29/2018 0 11/25/2018 Inactive DC any other synthroid strengths. Should be 50mcg only Synthroid 50 mcg tablet RxNorm: 694029 1 Tablet(s) PO QD 09/29/2018 1 11/28/2017 Inactive furosemide 40 mg tablet RxNorm: 530287 2 Tablet(s) PO Q AM for 1 week then every other day for 2 weeks 09/27/2018 10/12/2018 Inactive fluoxetine 40 mg capsule RxNorm: 519084 2 Capsule(s) PO QD 09/27/20 18 10/17/2018 Inactive potassium chloride ER 20 mEq tablet,extended release RxNorm: 275046 2 Tablet(s) PO QD for 1 week then every other day for 2 weeks 09/27/2018 2018 Inactive ProAir HFA 90 mcg/actuation aerosol inhaler RxNorm: 6166983 INHALE ONE PUFF BY MOUTH EVERY 4 HOURS FOR WHEEZING OR SHORTNESS OF BREATH 09/26/201811/23 Inactive Synthroid 75 mcg tablet RxNorm: 811271 1 Tablet(s) PO QD 09/09/2018 1 Inactive Synthroid 75 mcg tablet RxNorm: 967922 1 Tablet(s) PO QD 09/09/2018 1 11/28/2017 Inactive furosemide 40 mg tablet RxNorm: 364090 1 Tablet(s) PO QD 09/06/2018 1 Inactive potassium chloride ER 20 mEq tablet,extended release RxNorm: 328706 1 Tablet(s) PO QD 09/06/2018 09/19/2018 Inactive Duragesic 100 mcg/hr transdermal patch RxNorm: 385549 2 Application TD Q48H for pain 08/30/2018 09/28/2018 Inactive gabapentin 300 mg capsule RxNorm: 236526 TAKE ONE CAPSULE BY [facility] TWICE A DAY 08/23/2018 12/20/2018 Inactive Daliresp 500 mcg tablet RxNorm: 6207121 TAKE ONE TABLET BY MOUTH DAILY 08/23/2018 01/19/2019 Inactive Pulmicort 1 mg/2 mL suspension for nebulization RxNorm: 6168 19 USE ONE VIAL VIA NEBULIZER BY MOUTH TWICE A DAY 08/23/2018 07/11/2019 Inactive Synthroid 88 mcg tablet RxNorm: 566971 1 Tablet(s) PO QD 08/19/2018 Inactive Medrol (Aníbal) 4 mg tablets in a dose pack RxNorm: 377834 Tablet(s) PO take as directed 08/16/2018 09/05/2018 Inactive Relistor 150 mg tablet RxNorm: 6270631 3 Tablet(s) PO QD 08/16/2018 1 Inactive Zithromax Z-Aníbal 250 mg tablet RxNorm: 386217 Tablet(s) PO take as directed 08/16/2018 09/05/2018 Inactive cyclobenzaprine 10 mg tablet RxNorm: 139578 1 Tablet(s) PO TID as needed 08/16/2018 11/08/2018 Inactive Synthroid 88 mcg tablet RxNorm: 126815 1 Tablet(s) PO Q D NEEDS UPDATED LABS BEFORE FURTHER REFILLS 08/08/2018 08/19/2018 Inactive Premarin 0.45 mg tablet RxNorm: 406200 1 Tablet(s) PO QD 08/03/2018 0 01/31/2019 Inactive fluoxetine 20 mg capsule RxNorm: 370594 TAKE ONE CAPSULE BY BENOIT TH DAILY 08/03/2018 09/26/2018 Inactive Xtampza ER 36 mg capsule sprinkle RxNorm: 6893234 1 Capsule(s) P O BID 08/03/2018 09/01/2018 Inactive metformin ER 500 mg tablet,extended release 24 hr RxNorm: 86 0975 1 Tablet(s) PO QD 08/03/2018 10/31/2018 Inactive Symbicort 160 mcg-4.5 mcg/actuation HFA aerosol inhaler RxNo rm: 9336427 2 Puff(s) INH BID 08/03/2018 01/29/2019 Inactive Duragesic 100 mcg/hr transdermal patch RxNorm: 631812 2 Application TD Q48H for pain 07/29/2018 08/27/2018 Inactive ProAir HFA 90 mcg/actuation aerosol inhaler RxNorm: 572860 INHALE TWO PUFFS BY MOUTH EVERY 4 HOURS FOR WHEEZING OR SHORTNESS OF BREATH 07/27/201802/2018 Inactive Relistor 150 mg tablet RxNorm: 1199248 3 Tablet(s) PO QD 07/20/2018 0 08/15/2018 Inactive metformin ER 500 mg tablet,extended release 24 hr RxNorm: 86 0975 TAKE ONE TABLET BY MOUTH DAILY 07/08/2018 08/02/2018 Inactive fluoxetine 40 mg capsule RxNorm: 538317 TAKE ONE CAPSULE BY BENOIT TH EVERY MORNING 07/08/2018 10/05/2018 Inactive Xtampza ER 18 mg capsule sprinkle RxNorm: 6486712 1 Capsule(s) P O BID 07/08/2018 08/02/2018 Inactive Relistor 150 mg tablet RxNorm: 5431905 3 Tablet(s) PO QD 07/08/2018 0 07/12/2018 Inactive Synthroid 88 mcg tablet RxNorm: 385583 1 Tablet(s) PO Q D NEEDS UPDATED LABS BEFORE FURTHER REFILLS 06/23/2018 07/07/2018 Inactive fluoxetine 40 mg capsule RxNorm: 654198 TAKE ONE CAPSULE BY BENOIT EVERY MORNING 06/15/2018 09/26/2018 Inactive orphenadrine citrate ER 100 mg tablet,extended release RxNor m: 197094 TAKE ONE TABLET BY MOUTH TWICE A DAY FOR MUSCLE SPASM 06/15/2018 08/15/2018 [place] [facility] Duragesic 100 mcg/hr transdermal patch RxNorm: 683819 2 Application TD Q48H for pain 05/30/2018 06/28/2018 Inactive ProAir HFA 90 mcg/actuation aerosol inhaler RxNorm: 717810 INHALE TWO PUFFS BY MOUTH EVERY 4 HOURS FOR WHEEZING OR SHORTNESS OF BREATH 05/19/201803/2018 Inactive Chantix Continuing Month Box 1 mg tablet RxNorm: 301466 TAKE ONE TABLET BY MOUTH TWICE A DAY 05/19/2018 08/15/2018 Inactive oxycodone 10 mg tablet RxNorm: 2612226 1-2 Tablet(s) PO QID as n eeded for pain 05/19/2018 07/07/2018 Inactive gabapentin 300 mg capsule RxNorm: 097042 TAKE ONE CAPSULE BY [facility] TWICE A DAY 05/18/2018 07/16/2018 Inactive ProAir HFA 90 mcg/actuation aerosol inhaler RxNorm: 423964 INHALE TWO PUFFS BY MOUTH EVERY 4 HOURS FOR WHEEZING OR SHORTNESS OF BREATH 05/04/201804/23 Inactive Augmentin 500 mg-125 mg tablet RxNorm: 135756 1 Tablet(s) PO BID 05/03/2018 Inactive oxycodone 10 mg tablet RxNorm: 2426678 1-2 Tablet(s) PO QID as n eeded for pain 04/21/2018 05/18/2018 Inactive Synthroid 88 mcg tablet RxNorm: 967000 1 Tablet(s) PO QD 04/15/2018 0 08/08/2018 Inactive Symbicort 160 mcg-4.5 mcg/actuation HFA aerosol inhaler RxNo rm: 4185443 2 Puff(s) INH BID 04/15/2018 04/10/2019 Inactive Premarin 0.45 mg tablet RxNorm: 062330 1 Tablet(s) PO QD 04/15/2018 0 08/03/2018 Inactive ProAir HFA 90 mcg/actuation aerosol inhaler RxNorm: 805248 2 Puff(s) INH Q4H prn for wheezing or shortness of breath 04/15/2018 05/03/2018 Inactive metformin ER 500 mg tablet,extended release 24 hr RxNorm: 86 0975 1 Tablet(s) PO QD 04/11/2018 07/07/2018 Inactive omeprazole 40 mg capsule,delayed release RxNorm: 027418 TAKE ONE CAPSULE BY MOUTH DAILY 04/10/2018 06/08/2018 Inactive Synthroid 88 mcg tablet RxNorm: 844160 1 Tablet(s) PO QD 04/04/2018 0 04/14/2018 Inactive Synthroid 88 mcg tablet RxNorm: 997492 1 Tablet(s) PO QD 04/04/2018 0 04/03/2018 Inactive orphenadrine citrate ER 100 mg tablet,extended release RxNor m: 432351 1 Tablet(s) PO BID for muscle spasm 04/04/2018 05/03/2018 Inactive metformin ER 500 mg tablet,extended release 24 hr RxNorm: 86 0975 1 Tablet(s) PO QD NEEDS UPDATED LABS 03/31/2018 04/11/2018 Inactive doxycycline hyclate 100 mg capsule RxNorm: 3545514 1 Capsule(s) PO BID 03/31/2018 04/09/2018 Inactive prednisone 20 mg tablet RxNorm: 820617 3 Tablet(s) PO T ID for 3 days then 1 po BID for 3 days then one daily for 3 days 03/31/2018 07/06/2018 Inactiv e Chantix Continuing Month Box 1 mg tablet RxNorm: 593011 TAKE ONE TABLET BY MOUTH TWICE A DAY 03/25/2018 03/30/2018 Inactive oxycodone 10 mg tablet RxNorm: 1108441 1-2 Tablet(s) PO QID as n eeded for pain 03/21/2018 04/20/2018 Inactive Daliresp 500 mcg tablet RxNorm: 0464885 1 Tablet(s) PO QD 03/15/2018 08/22/2018 Inactive metformin ER 500 mg tablet,extended release 24 hr RxNorm: 86 0975 1 Tablet(s) PO QD NEEDS UPDATED LABS 03/14/2018 03/31/2018 Inactive nystatin 100,000 unit/mL oral suspension RxNorm: 263286 5 [place] liter(s) PO QID 03/02/2018 03/15/2018 Inactive nystatin 100,000 unit/mL oral suspension RxNorm: 821499 5 [place]io liter(s) PO QID 03/02/2018 03/01/2018 Inactive oxycodone 10 mg tablet RxNorm: 7403067 1-2 Tablet(s) PO QID as n eeded for pain 02/16/2018 03/20/2018 Inactive fluoxetine 20 mg capsule RxNorm: 372559 1 Capsule(s) PO QD 02/15/20 18 08/02/2018 Inactive metformin ER 500 mg tablet,extended release 24 hr RxNorm: 86 0975 1 Tablet(s) PO QD Needs updated labs 02/14/2018 03/14/2018 Inactive cefdinir 300 mg capsule RxNorm: 288671 1 Capsule(s) PO BID 01/27/20 18 02/04/2018 Inactive orphenadrine citrate ER 100 mg tablet,extended release RxNor m: 675584 1 Tablet(s) PO BID for muscle spasm 01/26/2018 04/04/2018 Inactive gabapentin 300 mg capsule RxNorm: 317486 1 Capsule(s) PO BID 201704/17/2018 Inactive oxycodone 10 mg tablet RxNorm: 1667888 1-2 Tablet(s) PO QID as n eeded for pain 01/17/2018 02/15/2018 Inactive Duragesic 100 mcg/hr transdermal patch RxNorm: 134705 2 Application TD Q48H for pain 01/17/2018 02/15/2018 Inactive gabapentin 300 mg capsule RxNorm: 249875 TAKE ONE CAPSULE BY MO UTH TWICE A DAY 12/20/2017 01/18/2018 Inactive fluoxetine 40 mg capsule RxNorm: 688430 TAKE ONE CAPSULE BY BENOIT TH EVERY MORNING 12/15/2017 03/14/2018 Inactive [employer] Ultra Test strips RxNorm: TEST DAILY 11/04/2017 02/01/2018 Inactive gabapentin 300 mg capsule RxNorm: 578563 1 Capsule(s) P O TID replaces BID dosing 10/26/2017 02/22/2018 Inactive oxycodone 10 mg tablet RxNorm: 7073336 1-2 Tablet(s) PO QID as n eeded for pain 10/18/2017 01/16/2018 Inactive Duragesic 100 mcg/hr transdermal patch RxNorm: 725389 2 Application TD Q48H for pain 10/18/2017 11/16/2017 Inactive gabapentin 300 mg capsule RxNorm: 559324 1 Capsule(s) PO BID 201610/25/2017 Inactive Abilify 5 mg tablet RxNorm: 718670 1 Tablet(s) PO QAM 09/23/201702/2017 Inactive gabapentin 300 mg capsule RxNorm: 194620 1 Capsule(s) PO BID 201610/17/2017 Inactive oxycodone 10 mg tablet RxNorm: 5414107 1-2 Tablet(s) PO QID as n eeded for pain 09/15/2017 10/17/2017 Inactive Duragesic 100 mcg/hr transdermal patch RxNorm: 738096 2 Application TD Q48H for pain 09/15/2017 10/14/2017 Inactive Duragesic 100 mcg/hr transdermal patch RxNorm: 391154 2 Application TD Q48H for pain 09/15/2017 10/24/2019 Inactive oxycodone 10 mg tablet RxNorm: 0505429 1-2 Tablet(s) PO QID as n eeded for pain 09/15/2017 08/15/2018 Inactive Daliresp 500 mcg tablet RxNorm: 7074032 1 Tablet(s) PO QD 09/06/2017 03/15/2018 Inactive Ventolin HFA 90 mcg/actuation aerosol inhaler RxNorm: 396729 2 Puff(s) INH Q4H as needed 09/02/2017 05/19/2018 Inactive oxycodone 10 mg tablet RxNorm: 7556148 1-2 Tablet(s) PO QID as n eeded for pain 08/17/2017 09/14/2017 Inactive Duragesic 100 mcg/hr transdermal patch RxNorm: 066138 2 Application TD Q48H for pain 08/17/2017 09/14/2017 Inactive fluoxetine 40 mg capsule RxNorm: 368112 Capsule(s) TAKE ONE CAPSULE BY MOUTH EVERY MORNING 08/17/2017 12/14/2017 Inactive Pulmicort 1 mg/2 mL suspension for nebulization RxNorm: 6168 19 1 Unit Dose INH BID Dx: COPD (J44.9) 08/16/2017 08/22/2018 Inactive gabapentin 300 mg capsule RxNorm: 050304 1 Capsule(s) PO QHS 201610/18/2017 Inactive fluoxetine 20 mg capsule RxNorm: 970791 1 Capsule(s) PO QD 08/12/20 17 02/14/2018 Inactive Abilify 2 mg tablet RxNorm: 288803 1 Tablet(s) PO QD TA KE ONE TABLET BY MOUTH DAILY 08/12/2017 10/25/2017 Inactive metformin ER 500 mg tablet,extended release 24 hr RxNorm: 86 0975 1 Tablet(s) PO QD 08/10/2017 02/14/2018 Inactive Synthroid 112 mcg tablet RxNorm: 749528 1 Tablet(s) PO QD 08/10/2017 04/15/2018 Inactive oxycodone 10 mg tablet RxNorm: 1754950 1-2 Tablet(s) PO QID as n eeded for pain 07/19/2017 08/16/2017 Inactive Duragesic 100 mcg/hr transdermal patch RxNorm: 580057 2 Application TD Q48H for pain 07/19/2017 08/16/2017 Inactive Ventolin HFA 90 mcg/actuation aerosol inhaler RxNorm: 327674 2 Puff(s) INH Q4H as needed 07/12/2017 09/02/2017 Inactive Abilify 2 mg tablet RxNorm: 880356 1 Tablet(s) PO QD TA KE ONE TABLET BY MOUTH DAILY 07/06/2017 08/11/2017 Inactive gabapentin 800 mg tablet RxNorm: 856508 1 Tablet(s) PO TID 06/22/2007/05/2017 Inactive Chantix Starting Month Box 0.5 mg (11)-1 mg (42) table ts in dose pack RxNorm: 585673 TAKE BY MOUTH INSTRUCTED - PER PACKAGE INSTRUCTIONS 06/0707/04/2017 Inactive Ventolin HFA 90 mcg/actuation aerosol inhaler RxNorm: 180584 2 Puff(s) INH Q4H as needed 05/26/2017 07/12/2017 Inactive Duragesic 100 mcg/hr transdermal patch RxNorm: 308146 2 Application TD Q48H for pain 05/19/2017 06/17/2017 Inactive oxycodone 10 mg tablet RxNorm: 3011343 1-2 Tablet(s) PO QID as n eeded for pain 05/19/2017 07/18/2017 Inactive Abilify 2 mg tablet RxNorm: 259739 TAKE ONE TABLET BY MOUTH DAILY 0 05/10/2017 07/05/2017 Inactive Synthroid 112 mcg tablet RxNorm: 428791 1 Tablet(s) PO QD 05/06/2017 08/10/2017 Inactive metformin ER 500 mg tablet,extended release 24 hr RxNorm: 86 0975 1 Tablet(s) PO QD 05/06/2017 08/10/2017 Inactive Topamax 100 mg tablet RxNorm: 915007 1 Tablet(s) PO QHS 05/06/2017 Inactive Premarin 0.45 mg tablet RxNorm: 052321 1 Tablet(s) PO QD 05/06/2017 0 04/15/2018 Inactive orphenadrine citrate ER 100 mg tablet,extended release RxNor m: 449663 1 Tablet(s) PO TID for muscle spasm--replaces methocarbamol 04/29/2017 Inactive oxycodone 10 mg tablet RxNorm: 4122273 1-2 Tablet(s) PO QID as n eeded for pain 04/21/2017 05/18/2017 Inactive Duragesic 100 mcg/hr transdermal patch RxNorm: 912999 2 Application TD Q48H for pain 04/21/2017 05/18/2017 Inactive fluoxetine 40 mg capsule RxNorm: 733927 Capsule(s) TAKE ONE CAPSULE BY MOUTH EVERY MORNING 04/20/2017 08/17/2017 Inactive Ventolin HFA 90 mcg/actuation aerosol inhaler RxNorm: 880052 2 Puff(s) INH Q4H as needed 04/05/2017 05/26/2017 Inactive Symbicort 160 mcg-4.5 mcg/actuation HFA aerosol inhaler RxNo rm: 8625246 2 Puff(s) INH BID 03/30/2017 04/15/2018 Inactive Spiriva with HandiHaler 18 mcg and inhalation capsules RxNor m: 916024 1 Capsule(s) INH QD USING HANDIHALER 03/30/2017 02/12/2019 Inactive Duragesic 100 mcg/hr transdermal patch RxNorm: 881558 2 Application TD Q48H for pain 03/18/2017 04/16/2017 Inactive oxycodone 10 mg tablet RxNorm: 4873596 1-2 Tablet(s) PO QID as n eeded for pain 03/18/2017 04/20/2017 Inactive metformin ER 500 mg tablet,extended release 24 hr RxNorm: 86 0975 Tablet(s) TAKE ONE TABLET BY MOUTH DAILY 03/01/2017 05/06/2017 Inactive Premarin 0.45 mg tablet RxNorm: 725750 Tablet(s) TAKE ONE TABLE T BY MOUTH DAILY 03/01/2017 05/06/2017 Inactive Synthroid 112 mcg tablet RxNorm: 733358 Tablet(s) TAKE ONE TABLET BY MOUTH DAILY 03/01/2017 05/06/2017 Inactive Daliresp 500 mcg tablet RxNorm: 8931834 1 Tablet(s) PO QD 03/01/2017 09/06/2017 Inactive 16.2 mg-0.1037 mg-0.0194 mg tablet RxNorm: 0882054 Tablet(s) PO PRN for gas and cramping 02/23/2017 04/28/2017 Inactive TAKE TWO TABLET S BY MOUTH THREE TIMES A DAY NEEDED FOR GAS AND CRAMPING gabapentin 800 mg tablet RxNorm: 480724 1 Tablet(s) PO TID repl aces 600mg 02/23/2017 04/28/2017 Inactive Duragesic 100 mcg/hr transdermal patch RxNorm: 485628 2 Application TD Q48H for pain 02/17/2017 03/17/2017 Inactive fluoxetine 20 mg capsule RxNorm: 625970 1 Capsule(s) PO QD 02/18/20 17 08/12/2017 Inactive oxycodone 20 mg tablet RxNorm: 4926480 1 Tablet(s) PO QID as nee ded for pain 02/17/2017 03/17/2017 Inactive Ventolin HFA 90 mcg/actuation aerosol inhaler RxNorm: 941422 INHALE TWO PUFFS BY MOUTH EVERY 4 HOURS NEEDED 02/15/2017 04/05/2017 Inactive Silvadene 1 % topical cream RxNorm: 062776 1 Application TOP BI D to burn area 02/01/2017 09/22/2017 Inactive Topamax 100 mg tablet RxNorm: 337839 TAKE ONE TABLET BY MOUTH EVERY NIGHT AT BEDTIME 01/29/2017 05/06/2017 Inactive Chantix Starting Month Box 0.5 mg (11)-1 mg (42) table ts in dose pack RxNorm: 632438 Tablet(s) PO as directed 01/29/2017 06/01/2017 Inactive Abilify 2 mg tablet RxNorm: 492128 TAKE ONE TABLET BY MOUTH DAILY 0 01/26/2017 04/25/2017 Inactive Chantix Starting Month Box 0.5 mg (11)-1 mg (42) table ts in dose pack RxNorm: 934707 Tablet(s) PO as directed 01/20/2017 01/28/2017 Inactive gabapentin 600 mg tablet RxNorm: 344360 1 Tablet(s) PO TID 01/21/20 17 02/22/2017 Inactive Chantix Continuing Month Box 1 mg tablet RxNorm: 248903 1 Table t(s) PO BID 12/31/2016 06/01/2017 Inactive Spiriva with HandiHaler 18 mcg and inhalation capsules RxNor m: 987127 INHALE THE ENTIRE CONTENTS OF 1 CAPSULE ONCE A DAY USING HANDIHALER 12/31/201607/2017 Inactive Synthroid 112 mcg tablet RxNorm: 616275 TAKE ONE TABLET BY MOUT H DAILY 12/30/2016 03/01/2017 Inactive metformin ER 500 mg tablet,extended release 24 hr RxNorm: 86 0975 TAKE ONE TABLET BY MOUTH DAILY 12/30/2016 03/01/2017 Inactive Premarin 0.45 mg tablet RxNorm: 720538 TAKE ONE TABLET BY MOUTH DAILY 12/30/2016 03/01/2017 Inactive omeprazole 40 mg capsule,delayed release RxNorm: 874041 TAKE ONE CAPSULE BY MOUTH DAILY 12/30/2016 01/25/2018 Inactive Ventolin HFA 90 mcg/actuation aerosol inhaler RxNorm: 142094 INHALE TWO PUFFS BY MOUTH EVERY 4 HOURS NEEDED 12/28/2016 02/13/2017 Inactive fluoxetine 40 mg capsule RxNorm: 193456 TAKE ONE CAPSULE BY BENOIT TH EVERY MORNING 12/15/2016 04/20/2017 Inactive Chantix Continuing Month Box 1 mg tablet RxNorm: 864544 TAKE ONE TABLET BY MOUTH TWICE A DAY 12/04/2016 12/31/2016 Inactive doxycycline hyclate 100 mg capsule RxNorm: 5023828 1 Capsule(s) PO BID 12/01/2016 12/07/2016 Inactive Levaquin 750 mg tablet RxNorm: 210623 1 Tablet(s) PO QD 12/01/2016 Inactive Abilify 2 mg tablet RxNorm: 469727 TAKE ONE TABLET BY MOUTH DAILY 0 11/25/2016 11/30/2016 Inactive Ventolin HFA 90 mcg/actuation aerosol inhaler RxNorm: 321812 INHALE TWO PUFFS BY MOUTH EVERY 4 HOURS NEEDED 11/02/2016 12/19/2016 Inactive Chantix Continuing Month Box 1 mg tablet RxNorm: 640877 Tablet(s) PO as directed 10/30/2016 12/03/2016 Inactive Symbicort 160 mcg-4.5 mcg/actuation HFA aerosol inhaler RxNo rm: 8399321 INHALE TWO PUFFS TWO TIMES A DAY 10/30/2016 03/30/2017 Inactive Abilify 2 mg tablet RxNorm: 454705 1 Tablet(s) PO QD 10/27/201611/24 Inactive amoxicillin 500 mg capsule RxNorm: 063592 1 Capsule(s) PO TID 10/1410/23/2016 Inactive amoxicillin 500 mg capsule RxNorm: 260015 1 Capsule(s) PO TID 10/1410/13/2016 Inactive Synthroid 112 mcg tablet RxNorm: 300550 TAKE ONE TABLET BY MOUT H DAILY 09/28/2016 12/29/2016 Inactive Topamax 100 mg tablet RxNorm: 266936 TAKE ONE TABLET BY MOUTH EVERY NIGHT AT BEDTIME 09/28/2016 01/28/2017 Inactive Premarin 0.45 mg tablet RxNorm: 523515 TAKE ONE TABLET BY MOUTH DAILY 09/28/2016 12/29/2016 Inactive metformin ER 500 mg tablet,extended release 24 hr RxNorm: 86 0975 TAKE ONE TABLET BY MOUTH DAILY 09/28/2016 12/29/2016 Inactive Ventolin HFA 90 mcg/actuation aerosol inhaler RxNorm: 510014 INHALE TWO PUFFS BY MOUTH EVERY 4 HOURS NEEDED 09/22/2016 10/23/2016 Inactive Pulmicort 1 mg/2 mL suspension for nebulization RxNorm: 6168 19 1 Unit Dose INH BID Dx: COPD (J44.9) 09/10/2016 08/16/2017 Inactive Pulmicort 1 mg/2 mL suspension for nebulization RxNorm: 6168 19 1 Unit Dose INH BID 09/10/2016 09/09/2016 Inactive Brovana 15 mcg/2 mL solution for nebulization RxNorm: 090422 1 Unit Dose INH BID Dx: COPD (J44.9) 09/10/2016 01/25/2018 Inactive Brovana 15 mcg/2 mL solution for nebulization RxNorm: 075998 1 Unit Dose INH BID 09/10/2016 09/09/2016 Inactive ipratropium-albuterol 0.5 mg-3 mg(2.5 mg base)/3 mL ne bulization soln RxNorm: 5877452 1 Unit Dose INH Q4H as needed Dx: COPD (J44.9) 09/10/2016 0 02/12/2019 Inactive orphenadrine citrate ER 100 mg tablet,extended release RxNor m: 252238 1 Tablet(s) PO BID for muscle spasm--replaces methocarbamol 09/09/2016 Inactive Chantix Continuing Month Box 1 mg tablet RxNorm: 293015 Tablet(s) PO as directed 09/09/2016 10/30/2016 Inactive orphenadrine citrate ER 100 mg tablet,extended release RxNor m: 966149 1 Tablet(s) PO BID for muscle spasm 09/09/2016 09/08/2016 Inactive Spiriva with HandiHaler 18 mcg and inhalation capsules RxNor m: 228437 INHALE THE ENTIRE CONTENTS OF 1 CAPSULE ONCE A DAY USING HANDIHALER 09/01/201605/2017 Inactive Daliresp 500 mcg tablet RxNorm: 8102896 1 Tablet(s) PO QD 08/27/2016 03/01/2017 Inactive prednisone 20 mg tablet RxNorm: 261231 3 Tablet(s) PO T ID for 3 days then 1 po BID for 3 days then one daily for 3 days 08/26/2016 04/28/2017 Inactiv e Wellbutrin XL 300 mg 24 hr tablet, extended release RxNorm: 294377 TAKE ONE TABLET BY MOUTH EVERY MORNING 07/29/2016 10/26/2016 Inactive gabapentin 600 mg tablet RxNorm: 883442 1 Tablet(s) PO BID 06/26/20 16 12/22/2016 Inactive fluoxetine 40 mg capsule RxNorm: 497013 TAKE ONE CAPSULE BY BENOIT TH EVERY MORNING 06/24/2016 11/20/2016 Inactive Duragesic 100 mcg/hr transdermal patch RxNorm: 801458 2 Application TD Q48H for pain 06/05/2016 07/04/2016 Inactive oxycodone 10 mg tablet RxNorm: 0582037 1-2 Tablet(s) PO QID as n eeded for pain 06/05/2016 03/17/2017 Inactive Belladonna-Phenobarbital 48 mg tablet,extended release RxNor m: 2 Tablet(s) PO TID 06/05/2016 01/19/2017 Inactive Premarin 0.45 mg tablet RxNorm: 040273 TAKE ONE TABLET BY MOUTH DAILY 05/27/2016 09/23/2016 Inactive Topamax 100 mg tablet RxNorm: 080788 TAKE ONE TABLET BY MOUTH EVERY NIGHT AT BEDTIME 05/27/2016 09/27/2016 Inactive Synthroid 112 mcg tablet RxNorm: 026744 TAKE ONE TABLET BY MOUT H DAILY 05/27/2016 09/23/2016 Inactive metformin ER 500 mg tablet,extended release 24 hr RxNorm: 86 0975 TAKE ONE TABLET BY MOUTH DAILY 05/27/2016 09/23/2016 Inactive Symbicort 160 mcg-4.5 mcg/actuation HFA aerosol inhaler RxNo rm: 6891616 INHALE TWO PUFFS TWO TIMES A DAY 05/27/2016 10/23/2016 Inactive Ventolin HFA 90 mcg/actuation aerosol inhaler RxNorm: 325599 INHALE TWO PUFFS BY MOUTH EVERY 4 HOURS NEEDED 05/21/2016 07/07/2016 Inactive omeprazole 40 mg capsule,delayed release RxNorm: 969765 1 Capsu le(s) PO QD 05/06/2016 08/03/2016 Inactive metformin ER 500 mg tablet,extended release 24 hr RxNorm: 86 0975 TAKE ONE TABLET BY MOUTH DAILY 04/23/2016 05/22/2016 Inactive methocarbamol 750 mg tablet RxNorm: 686704 2 Tablet(s) PO TID as needed for muscle spasm 04/23/2016 09/08/2016 Inactive Synthroid 112 mcg tablet RxNorm: 935627 TAKE ONE TABLET BY MOUT H DAILY 04/23/2016 05/22/2016 Inactive Spiriva with HandiHaler 18 mcg and inhalation capsules RxNor m: 017051 INHALE THE ENTIRE CONTENTS OF 1 CAPSULE ONCE A DAY USING HANDIHALER 04/09/201608/2016 Inactive Diflucan 100 mg tablet RxNorm: 744722 1 Tablet(s) PO QD 04/08/2016 Inactive doxycycline hyclate 100 mg capsule RxNorm: 1189594 1 Capsule(s) PO BID 04/08/2016 04/17/2016 Inactive doxycycline hyclate 100 mg capsule RxNorm: 0402581 1 Capsule(s) PO BID 04/08/2016 04/07/2016 Inactive Diflucan 100 mg tablet RxNorm: 169288 1 Tablet(s) PO QD 04/08/2016 Inactive ondansetron HCl 4 mg tablet RxNorm: 411085 1 Tablet(s) PO Q4H as needed for nausea and vomiting 04/08/2016 09/22/2017 Inactive gabapentin 600 mg tablet RxNorm: 983566 TAKE ONE TABLET BY MOUT H TWICE A DAY 03/24/2016 06/25/2016 Inactive Synthroid 112 mcg tablet RxNorm: 291120 TAKE ONE TABLET BY MOUT H DAILY 02/25/2016 04/22/2016 Inactive Levaquin 500 mg tablet RxNorm: 344187 1 Tablet(s) PO QD 01/23/2016 Inactive prednisone 20 mg tablet RxNorm: 100020 1 Tablet(s) PO T ID for 3 days then 1 po BID for 3 days then one daily for 3 days 01/23/2016 08/25/2016 Inactiv e [employer] Ultra Test strips RxNorm: TEST BLOOD SUGAR ONCE DAILY 250.00 01/09/2016 11/04/2017 Inactive methocarbamol 750 mg tablet RxNorm: 491218 2 Tablet(s) PO TID as needed for muscle spasm 01/09/2016 04/23/2016 Inactive lactulose 10 gram/15 mL oral solution RxNorm: 870067 [address](s) PO QD 01/09/2016 09/22/2017 Inactive TAKE 1 TABLESPOON BY MOUTH ONCE DAILY metformin ER 500 mg tablet,extended release 24 hr RxNorm: 86 0975 1 Tablet(s) PO QD 12/26/2015 04/22/2016 Inactive fluoxetine 20 mg capsule RxNorm: 909580 1 Capsule(s) PO QD 12/23/19 16 06/19/2016 Inactive Premarin 0.45 mg tablet RxNorm: 472188 TAKE ONE TABLET BY MOUTH DAILY 12/23/2015 05/20/2016 Inactive fluoxetine 40 mg capsule RxNorm: 001314 1 Capsule(s) PO QD 12/23/19 16 06/19/2016 Inactive TAKE ONE CAPSULE BY MOUTH EV JANKI MORNING azithromycin 500 mg tablet RxNorm: 022762 1 Tablet(s) PO QD 016 12/19/2015 Inactive Zofran 4 mg tablet RxNorm: 313075 1 Tablet(s) PO Q4H prn nausea /vomiting 12/13/2015 03/30/2018 Inactive azithromycin 500 mg tablet RxNorm: 641242 1 Tablet(s) PO QD 016 12/12/2015 Inactive Duragesic 100 mcg/hr transdermal patch RxNorm: 771103 2 Application TD Q48H for pain 12/09/2015 01/07/2016 Inactive oxycodone 10 mg tablet RxNorm: 1887956 1-2 Tablet(s) PO QID as n eeded for pain 12/09/2015 06/04/2016 Inactive Bactroban 2 % topical cream RxNorm: 573654 Application TOP BID 11/2208/25/2016 Inactive doxycycline hyclate 100 mg capsule RxNorm: 5369077 1 Capsule(s) PO BID 12/03/2015 12/12/2015 Inactive Topamax 100 mg tablet RxNorm: 697723 TAKE ONE TABLET BY MOUTH EVERY NIGHT AT BEDTIME 11/25/2015 05/22/2016 Inactive Symbicort 160 mcg-4.5 mcg/actuation HFA aerosol inhaler RxNo rm: 3558475 INHALE TWO PUFFS TWO TIMES A DAY 11/25/2015 05/22/2016 Inactive Synthroid 112 mcg tablet RxNorm: 203849 Tablet(s) TAKE ONE TABLET BY MOUTH DAILY 11/25/2015 02/22/2016 Inactive omeprazole 40 mg capsule,delayed release RxNorm: 719921 1 Capsu le(s) PO QD 11/12/2015 05/05/2016 Inactive oxycodone 10 mg tablet RxNorm: 3041060 1-2 Tablet(s) PO QID as n eeded for pain 11/05/2015 12/08/2015 Inactive Duragesic 100 mcg/hr transdermal patch RxNorm: 379547 2 Application TD Q48H for pain 11/05/2015 12/04/2015 Inactive omeprazole 40 mg capsule,delayed release RxNorm: 929427 1 Capsu le(s) PO QD 10/07/2015 11/11/2015 Inactive Januvia 100 mg tablet RxNorm: 144353 TAKE ONE TABLET BY MOUTH DAILY 09/11/2015 12/25/2015 Inactive Zithromax 500 mg tablet RxNorm: 906333 1 Tablet(s) PO QD 09/10/2015 1 Inactive prednisone 20 mg tablet RxNorm: 285494 1 Tablet(s) PO T ID for 3 days then 1 po BID for 3 days then one daily for 3 days 09/10/2015 08/25/2016 Inactiv e Wellbutrin XL 300 mg 24 hr tablet, extended release RxNorm: 032062 1 Tablet(s) PO QAM 09/10/2015 12/02/2015 Inactive Topamax 100 mg tablet RxNorm: 336006 TAKE ONE TABLET BY MOUTH EVERY NIGHT AT BEDTIME 09/02/2015 11/24/2015 Inactive Synthroid 112 mcg tablet RxNorm: 333358 TAKE ONE TABLET BY MOUT H DAILY 09/02/2015 11/25/2015 Inactive methocarbamol 750 mg tablet RxNorm: 430618 2 Tablet(s) PO TID as needed for muscle spasm 08/15/2015 01/09/2016 Inactive Wellbutrin XL 150 mg 24 hr tablet, extended release RxNorm: 263588 TAKE ONE TABLET BY MOUTH EVERY MORNING 08/13/2015 08/13/2015 Inactive gabapentin 600 mg tablet RxNorm: 301740 1 Tablet(s) PO BID 08/13/20 15 02/08/2016 Inactive Wellbutrin XL 300 mg 24 hr tablet, extended release RxNorm: 550643 1 Tablet(s) PO QAM 08/06/2015 09/09/2015 Inactive Wellbutrin XL 150 mg 24 hr tablet, extended release RxNorm: 129132 1 Tablet(s) PO QAM 07/18/2015 08/05/2015 Inactive prednisone 20 mg tablet RxNorm: 653892 1 Tablet(s) PO BID 07/18/2015 07/22/2015 Inactive doxycycline hyclate 100 mg tablet,delayed release RxNorm: 43 4018 1 Tablet(s) PO BID 07/18/2015 07/27/2015 Inactive pravastatin 40 mg tablet RxNorm: 390598 1 Tablet(s) PO QD NEEDS FASTING LAB 07/15/2015 07/14/2015 Inactive pravastatin 40 mg tablet RxNorm: 050025 1 Tablet(s) PO QD NEEDS FASTING LAB 07/15/2015 01/25/2018 Inactive Ventolin HFA 90 mcg/actuation aerosol inhaler RxNorm: 823663 2 Puff(s) INH Q4H 07/08/2015 07/07/2015 Inactive prn Premarin 0.45 mg tablet RxNorm: 726929 1 Tablet(s) PO QD 07/01/2015 0 12/22/2015 Inactive pravastatin 40 mg tablet RxNorm: 309204 1 Tablet(s) PO QD NEEDS FASTING LAB 06/14/2015 07/15/2015 Inactive Ventolin HFA 90 mcg/actuation aerosol inhaler RxNorm: 8269431 2 Puff(s) INH Q4H 06/06/2015 07/08/2015 Inactive prn albuterol sulfate 2.5 mg/3 mL (0.083 %) solution for n ebulization RxNorm: 564862 1 Unit Dose INH QID 05/30/2015 No Stop Date Active Duragesic 100 mcg/hr transdermal patch RxNorm: 749291 2 Application TD Q48H for pain 04/29/2015 05/28/2015 Inactive gabapentin 600 mg tablet RxNorm: 738028 1 Tablet(s) PO BID 04/11/20 15 08/13/2015 Inactive Onglyza 5 mg tablet RxNorm: 185350 1 Tablet(s) PO QD for blood suga r 04/10/2015 04/15/2015 Inactive [Brand Copay Card: RxBIN:[id number] PCN:CN RxGRP:[id number] ID#:[id number]] methocarbamol 750 mg tablet RxNorm: 639830 2 Tablet(s) PO TID as needed for muscle spasm 03/28/2015 08/15/2015 Inactive pravastatin 40 mg tablet RxNorm: 567883 1 Tablet(s) PO QD 03/19/2015 03/18/2015 Inactive pravastatin 40 mg tablet RxNorm: 211608 1 Tablet(s) PO QD 03/19/2015 06/14/2015 Inactive lactulose 10 gram/15 mL oral solution RxNorm: 125828 [address]s) PO QD 03/07/2015 01/09/2016 Inactive TAKE 1 TABLESPOON BY MOUTH ONCE DAILY oxycodone 20 mg tablet RxNorm: 1571642 1 Tablet(s) PO QID as nee ded for pain 03/05/2015 07/08/2015 Inactive Topamax 100 mg tablet RxNorm: 558021 1 Tablet(s) PO QHS TAKE ONE TABLET BY MOUTH AT BEDTIME 02/25/2015 02/12/2019 Inactive metformin ER 500 mg tablet,extended release 24 hr RxNorm: 86 0975 1 Tablet(s) PO QD 02/11/2015 03/04/2015 Inactive take one tablet by mouth every day Daliresp 500 mcg tablet RxNorm: 9116259 1 Tablet(s) PO QD 02/11/2015 08/09/2015 Inactive Endocet 10 mg-325 mg tablet RxNorm: 2106491 1 Tablet(s) PO Q4H as needed for pain 01/23/2015 01/23/2015 Inactive gabapentin 600 mg tablet RxNorm: 139061 1 Tablet(s) PO BID 01/23/20 15 04/11/2015 Inactive methocarbamol 750 mg tablet RxNorm: 820551 2 Tablet(s) PO TID as needed for muscle spasm 01/15/2015 02/13/2015 Inactive fluoxetine 40 mg capsule RxNorm: 827364 1 Capsule(s) PO QD 01/14/20 15 12/23/2015 Inactive TAKE ONE CAPSULE BY MOUTH EV JANKI MORNING fluoxetine 20 mg capsule RxNorm: 502029 1 Capsule(s) PO QD 01/14/20 15 12/23/2015 Inactive Premarin 0.45 mg tablet RxNorm: 731550 1 Tablet(s) PO QD 01/02/2015 0 07/01/2015 Inactive Endocet 10 mg-325 mg tablet RxNorm: 0324539 1-2 Tablet(s) PO Q4H 02/12/2019 Inactive PRN PAIN Duragesic 100 mcg/hr transdermal patch RxNorm: 383217 2 Application TD Q48H for pain 12/25/2014 01/23/2015 Inactive Topamax 100 mg tablet RxNorm: 933895 1 Tablet(s) PO QHS TAKE ONE TABLET BY MOUTH AT BEDTIME 12/25/2014 02/24/2015 Inactive Tudorza Pressair 400 mcg/actuation breath activated RxNorm: 5075427 1 BID INHALE ONE PUFF INTO LUNGS TWO TIMES A DAY 12/17/2014 05/15/2015 Inactive Endocet 10 mg-325 mg tablet RxNorm: 8340940 1-2 Tablet(s) PO Q4H 12/19/2014 Inactive PRN PAIN Duragesic 100 mcg/hr transdermal patch RxNorm: 501932 2 Application TD Q48H for pain 11/20/2014 12/24/2014 Inactive [employer] Ultra Test strips RxNorm: TEST BLOOD SUGAR ONCE DAILY 250.00 11/16/2014 01/08/2016 Inactive omeprazole 40 mg capsule,delayed release RxNorm: 128255 1 Capsu le(s) PO QD 11/13/2014 11/12/2015 Inactive metformin ER 500 mg tablet,extended release 24 hr RxNorm: 86 0975 1 Tablet(s) PO QD 11/12/2014 02/11/2015 Inactive take one tablet by mouth every day Symbicort 160 mcg-4.5 mcg/actuation HFA aerosol inhaler RxNo rm: 1725438 2 Puff(s) INH BID 11/12/2014 03/11/2015 Inactive INHALE 2 PUFFS O RALLY TWO TIMES A DAY gabapentin 800 mg tablet RxNorm: 943167 1 Tablet(s) PO QD TAKE ONE TABLET BY MOUTH ONCE A DAY 10/22/2014 01/01/2015 Inactive Endocet 10 mg-325 mg tablet RxNorm: 3109216 1-2 Tablet(s) PO Q4H 11/15/2014 Inactive PRN PAIN Duragesic 100 mcg/hr transdermal patch RxNorm: 142533 2 Application TD Q48H for pain 10/17/2014 11/19/2014 Inactive gabapentin 800 mg tablet RxNorm: 413755 1 Tablet(s) PO QD TAKE ONE TABLET BY MOUTH ONCE A DAY 10/04/2014 10/21/2014 Inactive Premarin 0.9 mg tablet RxNorm: 091398 1 Tablet(s) PO QD TAKE ONE TABLET BY MOUTH ONCE A DAY 10/04/2014 01/01/2015 Inactive Spiriva with HandiHaler 18 mcg & inhalation capsules RxNorm: 840739 1 Capsule(s) INH QD 10/03/2014 04/30/2015 Inactive Levaquin 500 mg tablet RxNorm: 563537 1 Tablet(s) PO QD 10/03/2014 Inactive prednisone 20 mg tablet RxNorm: 375741 1 Tablet(s) PO QD 10/03/201412/09/2013 Inactive Duragesic 100 mcg/hr transdermal patch RxNorm: 350426 2 Application TD Q48H for pain 09/18/2014 10/16/2014 Inactive Endocet 10 mg-325 mg tablet RxNorm: 5655423 1-2 Tablet(s) PO Q4H 10/16/2014 Inactive PRN PAIN Synthroid 112 mcg tablet RxNorm: 826860 1 Tablet(s) QD 09/10/2014 Inactive Synthroid 112 mcg tablet RxNorm: 489429 TAKE ONE TABLET BY MOUTH ONE TIME A DAY. NEEDS LABS 09/10/2014 02/06/2015 Inactive omeprazole 40 mg capsule,delayed release RxNorm: 690527 1 Capsu le(s) PO QD 09/03/2014 11/13/2014 Inactive omeprazole 40 mg capsule,delayed release RxNorm: 130125 1 Capsu le(s) PO QD 09/03/2014 09/02/2014 Inactive Spiriva with HandiHaler 18 mcg & inhalation capsules RxNorm: 966124 1 Capsule(s) INH QD 08/27/2014 10/02/2014 Inactive gabapentin 600 mg tablet RxNorm: 525514 1 Tablet(s) PO BID 08/27/20 14 10/22/2014 Inactive Endocet 10 mg-325 mg tablet RxNorm: 5283359 1-2 Tablet(s) PO Q4H 09/17/2014 Inactive PRN PAIN fentanyl 100 mcg/hr transdermal patch RxNorm: 260219 1 Unit Dos e TD QD 08/21/2014 09/19/2014 Inactive Daliresp 500 mcg tablet RxNorm: 9687329 1 Tablet(s) PO QD 08/13/2014 02/11/2015 Inactive Synthroid 112 mcg tablet RxNorm: 193994 TAKE ONE TABLET BY MOUTH ONE TIME A DAY. NEEDS LABS 08/10/2014 09/10/2014 Inactive Endocet 10 mg-325 mg tablet RxNorm: 8316837 1-2 Tablet(s) PO Q4H 08/17/2014 Inactive PRN PAIN Duragesic 100 mcg/hr transdermal patch RxNorm: 127738 2 Application TD Q48H for pain 07/19/2014 09/17/2014 Inactive fluoxetine 40 mg capsule RxNorm: 655315 1 Capsule(s) PO QD 07/17/20 14 01/14/2015 Inactive TAKE ONE CAPSULE BY MOUTH EV JANKI MORNING fluoxetine 20 mg capsule RxNorm: 243437 1 Capsule(s) PO QD 07/17/20 14 01/14/2015 Inactive Spiriva with HandiHaler 18 mcg & inhalation capsules RxNorm: 388946 1 Capsule(s) INH QD 07/17/2014 08/26/2014 Inactive INHALE CONTENTS OF 1 CAPSULE(S) WITH HANDIHALER ONCE DAILY Zofran 4 mg tablet RxNorm: 490448 1 Tablet(s) PO Q4H prn nausea 07/25/2014 Inactive Synthroid 112 mcg tablet RxNorm: 098405 1 Tablet(s) PO QD 07/09/2014 07/09/2014 Inactive methocarbamol 750 mg tablet RxNorm: 094570 2 Tablet(s) PO TID as needed for muscle spasm 07/09/2014 09/06/2014 Inactive Synthroid 112 mcg tablet RxNorm: 672088 1 Tablet(s) PO QD - nee d labs 07/09/2014 08/07/2014 Inactive Medrol (Aníbal) 4 mg tablets in a dose pack RxNorm: 798660 6 Tablet(s) PO QD --then as directed 07/03/2014 07/08/2014 Inactive Tudorza Pressair 400 mcg/actuation breath activated RxNorm: 4362647 1 Puff(s) INH BID 07/03/2014 12/17/2014 Inactive cefdinir 300 mg capsule RxNorm: 609348 1 Capsule(s) PO BID 07/03/20 14 07/12/2014 Inactive Topamax 100 mg tablet RxNorm: 408545 Tablet(s) TAKE ONE TABLET BY MOUTH AT BEDTIME 07/02/2014 02/25/2015 Inactive Duragesic 100 mcg/hr transdermal patch RxNorm: 802845 2 Application TD Q48H for pain 06/25/2014 07/18/2014 Inactive Endocet 10 mg-325 mg tablet RxNorm: 9633521 1-2 Tablet(s) PO Q4H 07/18/2014 Inactive PRN PAIN metformin ER 500 mg tablet,extended release 24 hr RxNorm: 86 0975 1 Tablet(s) PO QD Needs labs 06/18/2014 07/01/2014 Inactive take one tablet by mouth every day Duragesic 100 mcg/hr transdermal patch RxNorm: 500609 2 Application TD Q48H for pain 05/22/2014 06/24/2014 Inactive Synthroid 112 mcg tablet RxNorm: 380536 1 Tablet(s) PO QD 05/22/2014 07/09/2014 Inactive Endocet 10 mg-325 mg tablet RxNorm: 8682795 1-2 Tablet(s) PO Q4H 06/20/2014 Inactive PRN PAIN Endocet 10 mg-325 mg tablet RxNorm: 5566112 1-2 Tablet(s) PO Q4H 05/21/2014 Inactive PRN PAIN Duragesic 100 mcg/hr transdermal patch RxNorm: 099382 2 Application TD Q48H for pain 04/25/2014 05/21/2014 Inactive Daliresp 500 mcg tablet RxNorm: 8784477 1 Tablet(s) PO QD 04/24/2014 08/13/2014 Inactive Symbicort 160 mcg-4.5 mcg/actuation HFA aerosol inhaler RxNo rm: 0125914 2 Puff(s) INH BID 04/24/2014 08/21/2014 Inactive INHALE 2 PUFFS O RALLY TWO TIMES A DAY metformin ER 500 mg tablet,extended release 24 hr RxNorm: 86 0975 1 Tablet(s) PO QD 04/24/2014 11/12/2014 Inactive TAKE ONE TABLET BY MOUTH EVERY DAY [AttnRPh:Saving Apply/Adjudicate RxGRP:LDMGRP RxBIN:[id number] RxPCN:2012 PCode:01 ID#:[id number]] Symbicort 160 mcg-4.5 mcg/actuation HFA aerosol inhaler RxNo rm: 3978011 2 Puff(s) INH BID 04/24/2014 11/12/2014 Inactive INHALE 2 PUFFS O RALLY TWO TIMES A DAY Premarin 0.9 mg tablet RxNorm: 975534 1 Tablet(s) PO QD 04/24/2014 Inactive TAKE ONE TABLET BY MOUTH EVERY DAY metformin ER 500 mg tablet,extended release 24 hr RxNorm: 86 0975 1 Tablet(s) PO QD Needs labs 04/24/2014 06/18/2014 Inactive TAKE ONE TABLET BY MOUTH EVERY DAY [AttnRPh:Saving Apply/Adjudicate RxGRP:LDMGRP RxBIN:[id number] RxPCN:2012 PCode:01 ID#:[id number]] gabapentin 800 mg tablet RxNorm: 678996 1 Tablet(s) PO QD 04/24/2014 10/04/2014 Inactive TAKE ONE TABLET BY MOUTH EVERY DAY Topamax 100 mg tablet RxNorm: 118564 1 Tablet(s) PO QHS 04/17/2014 Inactive Topamax 100 mg tablet RxNorm: 807667 TAKE ONE TABLET BY MOUTH A T BEDTIME 04/17/2014 07/01/2014 Inactive Tudorza Pressair 400 mcg/actuation breath activated RxNorm: 6060539 1 Puff(s) INH BID 04/11/2014 07/02/2014 Inactive Duragesic 100 mcg/hr transdermal patch RxNorm: 553882 2 Application TD Q48H for pain 03/27/2014 04/24/2014 Inactive Endocet 10 mg-325 mg tablet RxNorm: 6079140 1-2 Tablet(s) PO Q4H 04/24/2014 Inactive PRN PAIN Robaxin 750 mg tablet RxNorm: 084729 2 Tablet(s) PO TID as need ed for spasm 02/23/2014 03/28/2015 Inactive Duragesic 100 mcg/hr transdermal patch RxNorm: 146191 2 Application TD Q48H for pain 02/23/2014 No Stop Date Active Endocet 10 mg-325 mg tablet RxNorm: 6204920 1-2 Tablet(s) PO Q4H 03/23/2014 Inactive PRN PAIN Synthroid 112 mcg tablet RxNorm: 551506 1 Tablet(s) PO QD TAKE ONE TABLET BY MOUTH EVERY DAY 02/15/2014 05/22/2014 Inactive Zithromax 500 mg tablet RxNorm: 747837 1 Tablet(s) PO QD 01/30/2014 0 02/05/2014 Inactive Diflucan 100 mg tablet RxNorm: 627896 1 Tablet(s) PO QD 01/30/2014 Inactive prednisone 20 mg tablet RxNorm: 415720 1 Tablet(s) PO BID 01/30/2014 02/05/2014 Inactive fluoxetine 40 mg capsule RxNorm: 099051 1 Capsule(s) PO QD 01/23/20 14 07/16/2014 Inactive TAKE ONE CAPSULE BY MOUTH EV JANKI MORNING fluoxetine 40 mg capsule RxNorm: 391513 1 Capsule(s) PO QD 01/23/20 14 07/17/2014 Inactive TAKE ONE CAPSULE BY MOUTH EV JANKI MORNING cefdinir 300 mg capsule RxNorm: 159444 1 Capsule(s) PO BID 01/16/20 14 01/29/2014 Inactive Zithromax 500 mg tablet RxNorm: 395101 1 Tablet(s) PO QD 01/16/2014 0 01/22/2014 Inactive prednisone 20 mg tablet RxNorm: 998426 1 Tablet(s) PO BID 01/16/2014 01/22/2014 Inactive Spiriva with HandiHaler 18 mcg and inhalation capsules RxNor m: 703541 1 Capsule(s) INH QD 12/18/2013 07/17/2014 Inactive INHALE CONTENT S OF 1 CAPSULE(S) WITH HANDIHALER ONCE DAILY fluoxetine 20 mg capsule RxNorm: 718365 1 Capsule(s) PO QD 12/18/19 14 06/15/2014 Inactive Spiriva with HandiHaler 18 mcg & inhalation capsules RxNorm: 846489 1 Capsule(s) INH QD 12/18/2013 06/15/2014 Inactive INHALE CONTENTS OF 1 CAPSULE(S) WITH HANDIHALER ONCE DAILY fluoxetine 20 mg capsule RxNorm: 305918 1 Capsule(s) PO QD 12/18/19 14 07/17/2014 Inactive cefdinir 300 mg capsule RxNorm: 422054 2 Capsule(s) PO QD 12/12/2013 12/21/2013 Inactive Duragesic 100 mcg/hr transdermal patch RxNorm: 680304 2 Application TD Q48H for pain 12/08/2013 12/07/2013 Inactive Topamax 100 mg tablet RxNorm: 864189 1 Tablet(s) PO QHS 12/04/2013 Inactive Endocet 10 mg-325 mg tablet RxNorm: 9651764 1-2 Tablet(s) PO Q4H 12/26/2013 Inactive PRN PAIN Robaxin 750 mg tablet RxNorm: 167500 2 Tablet(s) PO TID as need ed for spasm 11/07/2013 01/05/2014 Inactive gabapentin 800 mg tablet RxNorm: 620357 1 Tablet(s) PO QD 10/16/2013 04/24/2014 Inactive TAKE ONE TABLET BY MOUTH EVERY DAY Symbicort 160 mcg-4.5 mcg/actuation HFA aerosol inhaler RxNo rm: 7131681 2 Puff(s) INH BID 10/16/2013 04/24/2014 Inactive INHALE 2 PUFFS O RALLY TWO TIMES A DAY Premarin 0.9 mg tablet RxNorm: 316891 1 Tablet(s) PO QD 10/16/2013 Inactive TAKE ONE TABLET BY MOUTH EVERY DAY metformin ER 500 mg tablet,extended release 24 hr RxNorm: 86 0975 1 Tablet(s) PO QD 10/16/2013 04/24/2014 Inactive TAKE ONE TABLET BY MOUTH EVERY DAY Daliresp 500 mcg tablet RxNorm: 6854842 1 Tablet(s) PO QD 10/16/2013 04/24/2014 Inactive Robaxin 750 mg tablet RxNorm: 480360 2 Tablet(s) PO TID as need ed for spasm 10/10/2013 11/06/2013 Inactive Duragesic 100 mcg/hr transdermal patch RxNorm: 862706 2 Application TD Q48H for pain 10/09/2013 No Stop Date Active Soma 350 mg tablet RxNorm: 746660 1 Tablet(s) PO TID 09/27/201310/09 Inactive TAKE ONE TABLET BY MOUTH THREE TIMES A D AY lactulose 10 gram/15 mL oral solution RxNorm: 946792 [address](s) PO QD 09/13/2013 03/07/2015 Inactive TAKE 1 TABLESPOON BY MOUTH ONCE DAILY Duragesic 100 mcg/hr transdermal patch RxNorm: 030071 2 Application TD Q48H for pain 09/06/2013 No Stop Date Active Endocet 10 mg-325 mg tablet RxNorm: 8691596 1-2 Tablet(s) PO Q4H 09/27/2013 Inactive PRN PAIN lancets 28 gauge RxNorm: Miscellaneous As needed for blo od glucose sticks 08/24/2013 No Stop Date Active 16.2 mg-0.1037 mg-0.0194 mg tablet RxNorm: 7341381 Tablet(s) PO PRN for gas and cramping 08/24/2013 01/19/2017 Inactive TAKE TWO TABLET S BY MOUTH THREE TIMES A DAY NEEDED FOR GAS AND CRAMPING Topamax 100 mg tablet RxNorm: 098284 1 Tablet(s) PO QHS 07/31/2013 Inactive Diflucan 100 mg tablet RxNorm: 877171 1 Tablet(s) PO QD 07/27/2013 Inactive cefdinir 300 mg capsule RxNorm: 312608 1 Capsule(s) PO BID 07/26/20 13 08/08/2013 Inactive Daliresp 500 mcg tablet RxNorm: 3297131 1 Tablet(s) PO QD 07/25/2013 10/15/2013 Inactive fluoxetine 40 mg capsule RxNorm: 764121 1 Capsule(s) PO QD 07/25/20 13 01/22/2014 Inactive TAKE ONE CAPSULE BY MOUTH EV JANKI MORNING Senokot-S 8.6 mg-50 mg tablet RxNorm: 8192641 1 Tablet(s) PO BID 10/25/2013 Inactive doxycycline hyclate 100 mg capsule RxNorm: 9877543 1 Capsule(s) PO BID 06/28/2013 07/07/2013 Inactive prednisone 20 mg tablet RxNorm: 000950 1 Tablet(s) PO BID 06/28/2013 07/04/2013 Inactive Zofran 4 mg tablet RxNorm: 847077 1 Tablet(s) PO Q4H prn nausea 03/201307/05/2013 Inactive Spiriva with HandiHaler 18 mcg & inhalation capsules RxNorm: 439529 1 Capsule(s) INH QD 06/26/2013 12/18/2013 Inactive INHALE CONTENTS OF 1 CAPSULE(S) WITH HANDIHALER ONCE DAILY Synthroid 112 mcg tablet RxNorm: 339160 1 Tablet(s) PO QD TAKE ONE TABLET BY MOUTH EVERY DAY 06/19/2013 02/15/2014 Inactive fluoxetine 20 mg capsule RxNorm: 311680 1 Capsule(s) PO QD 06/19/20 13 12/18/2013 Inactive Ventolin HFA 90 mcg/actuation Aerosol Inhaler RxNorm: 2545874 2 Puff(s) INH Q4H 06/05/2013 No Stop Date Active prn Soma 350 mg tablet RxNorm: 706781 1 Tablet(s) PO TID 06/05/201307/04 Inactive TAKE ONE TABLET BY MOUTH THREE TIMES A D AY prednisone 20 mg tablet RxNorm: 571951 1 Tablet(s) PO QD 05/31/2013 0 06/06/2013 Inactive Topamax 100 mg tablet RxNorm: 590516 1 Tablet(s) PO QHS 05/22/2013 Inactive Levaquin 500 mg tablet RxNorm: 187383 1 Tablet(s) PO QD 05/03/2013 Inactive Diflucan 100 mg tablet RxNorm: 298295 1 Tablet(s) PO QD 05/03/2013 Inactive Daliresp 500 mcg tablet RxNorm: 1499733 1 Tablet(s) PO QD 05/01/2013 07/24/2013 Inactive Daliresp 500 mcg tablet RxNorm: 1253243 1 Tablet(s) PO QD 05/01/2013 04/30/2013 Inactive gabapentin 800 mg tablet RxNorm: 780648 1 Tablet(s) PO QD 04/10/2013 10/06/2013 Inactive TAKE ONE TABLET BY MOUTH EVERY DAY metformin ER 500 mg tablet,extended release 24 hr RxNorm: 86 0977 1 Tablet(s) PO QD 04/10/2013 10/06/2013 Inactive TAKE ONE TABLET BY MOUTH EVERY DAY Premarin 0.9 mg tablet RxNorm: 119170 1 Tablet(s) PO QD 04/10/2013 Inactive TAKE ONE TABLET BY MOUTH EVERY DAY Symbicort 160 mcg-4.5 mcg/actuation HFA aerosol inhaler RxNo rm: 5060810 2 Puff(s) INH BID 04/10/2013 10/06/2013 Inactive INHALE 2 PUFFS O RALLY TWO TIMES A DAY Synthroid 112 mcg tablet RxNorm: 481000 1 Tablet(s) PO QD TAKE ONE TABLET BY MOUTH EVERY DAY 04/10/2013 06/18/2013 Inactive Ventolin HFA 90 mcg/actuation Aerosol Inhaler RxNorm: 267710 2 Puff(s) INH Q4H 04/10/2013 No Stop Date Active prn fentanyl 100 mcg/hr transdermal patch RxNorm: 474822 1 Unit Dos e TD QD 04/03/2013 05/02/2013 Inactive Endocet 10 mg-325 mg tablet RxNorm: 0398664 1-2 Tablet(s) PO Q4H 05/02/2013 Inactive PRN PAIN Topamax 100 mg tablet RxNorm: 398831 1 Tablet(s) PO QHS 03/13/2013 Inactive Reglan 10 mg tablet RxNorm: 914852 1 Tablet(s) PO QID b efore meals and at bedtime 03/13/2013 04/09/2015 Inactive fluoxetine 20 mg capsule RxNorm: 767482 1 Capsule(s) PO QD 02/28/20 13 05/27/2013 Inactive Ventolin HFA 90 mcg/actuation Aerosol Inhaler RxNorm: 681625 2 Puff(s) INH Q4H 02/13/2013 No Stop Date Active prn fluoxetine 40 mg capsule RxNorm: 439044 1 Capsule(s) PO QD 01/31/20 13 07/24/2013 Inactive TAKE ONE CAPSULE BY MOUTH EV JANKI MORNING Soma 350 mg tablet RxNorm: 114044 1 Tablet(s) PO TID 01/20/201302/18 Inactive TAKE ONE TABLET BY MOUTH THREE TIMES A D AY Endocet 10 mg-325 mg tablet RxNorm: 1853573 1-2 Tablet(s) PO Q4H 02/06/2013 Inactive PRN PAIN MS Contin 200 mg tablet,extended release RxNorm: 499332 1 Table t(s) PO BID 01/18/2013 02/06/2013 Inactive Ventolin HFA 90 mcg/actuation Aerosol Inhaler RxNorm: 602765 2 Puff(s) INH Q4H 01/04/2013 No Stop Date Active prn Spiriva with HandiHaler 18 mcg & inhalation capsules RxNorm: 842010 1 Capsule(s) INH QD 12/29/2012 06/25/2013 Inactive INHALE CONTENTS OF 1 CAPSULE(S) WITH HANDIHALER ONCE DAILY Spiriva with HandiHaler 18 mcg & inhalation capsules RxNorm: 436870 1 Capsule(s) INH QD 12/26/2012 12/28/2012 Inactive INHALE CONTENTS OF 1 CAPSULE(S) WITH HANDIHALER ONCE DAILY Synthroid 112 mcg tablet RxNorm: 916835 Tablet(s) PO TA KE ONE TABLET BY MOUTH EVERY DAY 12/26/2012 04/09/2013 Inactive Endocet 10 mg-325 mg tablet RxNorm: 9828409 1-2 Tablet(s) PO Q4H 01/17/2013 Inactive PRN PAIN MS Contin 200 mg tablet,extended release RxNorm: 671470 1 Table t(s) PO BID 12/21/2012 01/17/2013 Inactive fluoxetine 20 mg capsule RxNorm: 520109 1 Capsule(s) PO QD 12/06/19 13 02/26/2013 Inactive Synthroid 112 mcg tablet RxNorm: 376598 1 Tablet(s) PO QD 12/06/2012 02/12/2019 Inactive TAKE ONE TABLET BY MOUTH EVERY DAY Ventolin HFA 90 mcg/actuation Aerosol Inhaler RxNorm: 283730 2 Puff(s) INH Q4H 12/06/2012 No Stop Date Active prn Reglan 10 mg tablet RxNorm: 219711 1 Tablet(s) PO QID b efore meals and at bedtime 11/24/2012 03/12/2013 Inactive Topamax 100 mg tablet RxNorm: 254149 1 Tablet(s) PO QHS 11/16/2012 Inactive Ventolin HFA 90 mcg/actuation Aerosol Inhaler RxNorm: 211855 2 Puff(s) INH Q4H 11/09/2012 No Stop Date Active prn gabapentin 800 mg tablet RxNorm: 504585 1 Tablet(s) PO QD 10/27/2012 04/09/2013 Inactive TAKE ONE TABLET BY MOUTH EVERY DAY metformin ER 500 mg tablet,extended release 24 hr RxNorm: 86 0977 1 Tablet(s) PO QD 10/27/2012 04/09/2013 Inactive TAKE ONE TABLET BY MOUTH EVERY DAY Symbicort 160 mcg-4.5 mcg/actuation HFA Aerosol Inhaler RxNo rm: 2442149 2 Puff(s) INH BID 10/27/2012 04/09/2013 Inactive INHALE 2 PUFFS O RALLY TWO TIMES A DAY Premarin 0.9 mg tablet RxNorm: 536895 1 Tablet(s) PO QD 10/27/2012 Inactive TAKE ONE TABLET BY MOUTH EVERY DAY Endocet 10 mg-325 mg tablet RxNorm: 8831885 1-2 Tablet(s) PO Q4H 11/24/2012 Inactive PRN PAIN MS Contin 200 mg tablet,extended release RxNorm: 430070 1 Table t(s) PO BID 10/26/2012 11/24/2012 Inactive Soma 350 mg tablet RxNorm: 163709 1 Tablet(s) PO TID 10/04/201211/02 Inactive TAKE ONE TABLET BY MOUTH THREE TIMES A D AY Ventolin HFA 90 mcg/actuation Aerosol Inhaler RxNorm: 657826 2 Puff(s) INH Q4H 10/03/2012 No Stop Date Active prn Daliresp 500 mcg tablet RxNorm: 5486888 1 Tablet(s) PO QD 09/28/2012 09/27/2012 Inactive Daliresp 500 mcg tablet RxNorm: 5820093 1 Tablet(s) PO QD 09/28/2012 04/25/2013 Inactive fluoxetine 20 mg capsule RxNorm: 743793 1 Capsule(s) PO QD 09/05/2012/06/2012 Inactive Topamax 50 mg tablet RxNorm: 302464 Tablet(s) PO for 1w k then 1 po q HS for 1wk then 2 po q HS 08/29/2012 09/27/2012 Inactive TAKE 1/2 TABLET BY MOUTH AT BEDTIME FOR 1 WEEK, THEN 1 TABLET AT BEDTIME FOR 1 WEEK, THEN 2 TABLETS AT BEDTIME Topamax 100 mg tablet RxNorm: 001943 1 Tablet(s) PO QHS 08/29/2012 Inactive Ventolin HFA 90 mcg/actuation Aerosol Inhaler RxNorm: 937444 2 Puff(s) INH Q4H 08/19/2012 No Stop Date Active prn Ventolin HFA 90 mcg/actuation Aerosol Inhaler RxNorm: 847466 2 Puff(s) INH Q4H 08/15/2012 No Stop Date Active prn Synthroid 112 mcg tablet RxNorm: 994700 1 Tablet(s) PO QD 08/10/2012 11/07/2012 Inactive TAKE ONE TABLET BY MOUTH EVERY DAY Synthroid 112 mcg tablet RxNorm: 233982 1 Tablet(s) PO QD 08/01/2012 08/09/2012 Inactive TAKE ONE TABLET BY MOUTH EVERY DAY Reglan 10 mg tablet RxNorm: 853314 1 Tablet(s) PO QID b efore meals and at bedtime 08/01/2012 11/23/2012 Inactive fluoxetine 40 mg capsule RxNorm: 651772 1 Capsule(s) PO QD 08/01/2001/27/2013 Inactive TAKE ONE CAPSULE BY MOUTH EV JANKI MORNING Ventolin HFA 90 mcg/actuation Aerosol Inhaler RxNorm: 504361 2 Puff(s) INH Q4H 08/01/2012 No Stop Date Active prn Soma 350 mg tablet RxNorm: 559327 1 Tablet(s) PO TID 07/20/201208/18 Inactive TAKE ONE TABLET BY MOUTH THREE TIMES A D AY Spiriva with HandiHaler 18 mcg & inhalation capsules RxNorm: 341407 1 Capsule(s) INH 07/01/2012 12/25/2012 Inactive INHALE CONTENTS OF 1 CAPSULE(S) WITH HANDIHALER ONCE DAILY Zithromax 250 mg Tab RxNorm: 636113 2 Tablet(s) PO QD 06/28/201206/22 Inactive MS Contin 200 mg tablet,extended release RxNorm: 059201 1 Table t(s) PO BID 06/28/2012 07/27/2012 Inactive Endocet 10 mg-325 mg tablet RxNorm: 7015770 1-2 Tablet(s) PO Q4H 07/27/2012 Inactive PRN PAIN Topamax 100 mg tablet RxNorm: 537322 1 Tablet(s) PO QHS 06/28/2012 Inactive 16.2 mg-0.1037 mg-0.0194 mg tablet RxNorm: 2143976 Tablet(s) PO PRN for gas and cramping 06/08/2012 08/23/2013 Inactive TAKE TWO TABLET S BY MOUTH THREE TIMES A DAY NEEDED FOR GAS AND CRAMPING Ventolin HFA 90 mcg/actuation Aerosol Inhaler RxNorm: 540511 2 Puff(s) INH Q4H 05/23/2012 No Stop Date Active prn Ventolin HFA 90 mcg/actuation Aerosol Inhaler RxNorm: 314786 2 Puff(s) INH Q4H 05/11/2012 No Stop Date Active prn Synthroid 112 mcg tablet RxNorm: 525933 1 Tablet(s) PO QD 05/09/2012 07/31/2012 Inactive TAKE ONE TABLET BY MOUTH EVERY DAY gabapentin 800 mg tablet RxNorm: 228130 1 Tablet(s) PO QD 05/09/2012 10/26/2012 Inactive TAKE ONE TABLET BY MOUTH EVERY DAY fluoxetine 40 mg capsule RxNorm: 012052 1 Capsule(s) PO QD 05/09/2007/31/2012 Inactive TAKE ONE CAPSULE BY MOUTH EV JANKI MORNING metformin ER 500 mg tablet,extended release 24 hr RxNorm: 86 0977 1 Tablet(s) PO QD 05/09/2012 10/26/2012 Inactive TAKE ONE TABLET BY MOUTH EVERY DAY Premarin 0.9 mg tablet RxNorm: 594416 1 Tablet(s) PO QD 05/09/2012 Inactive TAKE ONE TABLET BY MOUTH EVERY DAY Symbicort 160 mcg-4.5 mcg/actuation HFA Aerosol Inhaler RxNo rm: 4883035 2 Puff(s) INH BID 05/09/2012 10/26/2012 Inactive INHALE 2 PUFFS O RALLY TWO TIMES A DAY Endocet 10 mg-325 mg Tab RxNorm: 4133378 1-2 Tablet(s) PO Q4H 04/2705/26/2012 Inactive PRN PAIN MS Contin 200 mg Tab RxNorm: 442494 1 Tablet(s) PO BID 04/26/201202/2012 Inactive Ventolin HFA 90 mcg/actuation Aerosol Inhaler RxNorm: 789608 2 Puff(s) INH Q4H 04/25/2012 05/10/2012 Inactive prn Soma 350 mg tablet RxNorm: 095543 2 Tablet(s) PO TID 04/19/201207/19 Inactive TAKE ONE TABLET BY MOUTH THREE TIMES A D AY Ventolin HFA 90 mcg/actuation Aerosol Inhaler RxNorm: 893985 2 Puff(s) INH Q4H 04/12/2012 04/24/2012 Inactive prn Reglan 10 mg tablet RxNorm: 319046 1 Tablet(s) PO QID b efore meals and at bedtime 04/11/2012 07/31/2012 Inactive MS Contin 200 mg Tab RxNorm: 607823 1 Tablet(s) PO BID 03/30/201202/2012 Inactive Endocet 10 mg-325 mg Tab RxNorm: 7265718 1-2 Tablet(s) PO Q4H 03/3004/26/2012 Inactive PRN PAIN MS Contin 200 mg Tab RxNorm: 410954 1 Tablet(s) PO BID 03/02/201206/2012 Inactive Endocet 10 mg-325 mg Tab RxNorm: 7114552 1-2 Tablet(s) PO Q4H 03/0203/29/2012 Inactive PRN PAIN Daliresp 500 mcg tablet RxNorm: 3197456 1 Tablet(s) PO QD 03/01/2012 09/28/2012 Inactive MS Contin 200 mg Tab RxNorm: 500569 1 Tablet(s) PO BID 02/02/201208/2012 Inactive Endocet 10 mg-325 mg Tab RxNorm: 8543882 1-2 Tablet(s) PO Q4H 02/0103/01/2012 Inactive PRN PAIN fluoxetine 40 mg capsule RxNorm: 143705 1 Capsule(s) PO QD 02/02/2008/01/2012 Inactive TAKE ONE CAPSULE BY MOUTH EV JANKI MORNING Synthroid 112 mcg Tab RxNorm: 243733 1 Tablet(s) PO QD 01/18/2012 Inactive TAKE ONE TABLET BY MOUTH EVERY DAY lactulose 10 gram/15 mL oral solution RxNorm: 945454 [address]s) PO QD 01/18/2012 No Stop Date Active TAKE 1 TABLESPOON BY MOUTH ONCE DAILY Ventolin HFA 90 mcg/actuation Aerosol Inhaler RxNorm: 082728 2 Puff(s) INH Q4H 01/18/2012 04/11/2012 Inactive prn MS Contin 200 mg Tab RxNorm: 004888 1 Tablet(s) PO BID 01/05/201210/2012 Inactive Endocet 10 mg-325 mg Tab RxNorm: 8631705 1-2 Tablet(s) PO Q4H 01/0502/01/2012 Inactive PRN PAIN ProAir HFA 90 mcg/Actuation Aerosol Inhaler RxNorm: 444176 2 Pu ff(s) INH Q4H 12/21/2011 No Stop Date Active prn for wheezing or shortness of breath Spiriva with HandiHaler 18 mcg & inhalation Caps RxNorm: 580 261 1 Capsule(s) INH 12/21/2011 06/30/2012 Inactive INHALE CONTENTS OF 1 CAPSULE(S) WITH HANDIHALER ONCE DAILY Reglan 10 mg Tab RxNorm: 198813 1 Tablet(s) PO QID before meals and at bedtime 12/21/2011 04/10/2012 Inactive Synthroid 112 mcg Tab RxNorm: 145527 1 Tablet(s) PO QD 12/21/2011 Inactive TAKE ONE TABLET BY MOUTH EVERY DAY Endocet 10 mg-325 mg Tab RxNorm: 9828811 1-2 Tablet(s) PO Q4H 11/2512/24/2011 Inactive PRN PAIN MS Contin 200 mg Tab RxNorm: 152427 1 Tablet(s) PO BID 11/25/201112/2011 Inactive lactulose 10 gram/15 mL Oral Soln RxNorm: 911171 Milliliter(s) PO 1 No Stop Date Active TAKE 1 TABLESPOON BY MOUTH O NCE DAILY lactulose 10 gram/15 mL Oral Soln RxNorm: 336320 Milliliter(s) PO 1 12/12/2010 11/20/2011 Inactive TAKE 1 TABLESPOON BY MOUTH O NCE DAILY Premarin 0.9 mg Tab RxNorm: 350428 1 Tablet(s) PO QD 10/12/201105/08 Inactive TAKE ONE TABLET BY MOUTH EVERY DAY fluoxetine 20 mg capsule RxNorm: 774358 1 Capsule(s) PO QD 10/12/20 11 09/05/2012 Inactive TAKE ONE CAPSULE BY MOUTH EV JANKI DAY Synthroid 112 mcg Tab RxNorm: 906961 1 Tablet(s) PO QD 10/12/2011 Inactive TAKE ONE TABLET BY MOUTH EVERY DAY metformin ER 500 mg 24 hr Tab RxNorm: 764175 1 Tablet(s) PO QD 09/2311/10/2011 Inactive TAKE ONE TABLET BY MOUTH GLYNN RY DAY Synthroid 112 mcg Tab RxNorm: 142284 1 Tablet(s) PO QD 10/12/2011 Inactive TAKE ONE TABLET BY MOUTH EVERY DAY metformin ER 500 mg 24 hr Tab RxNorm: 498223 1 Tablet(s) PO QD 09/2310/11/2011 Inactive TAKE ONE TABLET BY MOUTH GLYNN RY DAY Prevacid 30 mg Cap RxNorm: 544215 Capsule(s) PO 10/12/2011 01/25/2012 Inactive TAKE ONE CAPSULE BY MOUTH EVERY DAY Symbicort 160 mcg-4.5 mcg/actuation HFA Aerosol Inhaler RxNo rm: 8004670 2 Puff(s) INH BID 10/12/2011 05/08/2012 Inactive INHALE 2 PUFFS O RALLY TWO TIMES A DAY gabapentin 800 mg Tab RxNorm: 142371 1 Tablet(s) PO QD 10/12/2011 Inactive TAKE ONE TABLET BY MOUTH EVERY DAY MS Contin 200 mg Tab RxNorm: 008458 1 Tablet(s) PO BID 09/23/201111/2010 Inactive Endocet 10 mg-325 mg Tab RxNorm: 5697570 1-2 Tablet(s) PO Q4H 09/2310/22/2011 Inactive PRN PAIN Endocet 10 mg-325 mg Tab RxNorm: 8880052 1-2 Tablet(s) PO Q4H 08/2109/19/2011 Inactive PRN PAIN MS Contin 200 mg Tab RxNorm: 863267 1 Tablet(s) PO BID 08/21/2011 Inactive Diflucan 100 mg Tab RxNorm: 022234 1 Tablet(s) PO QD 08/10/201108/16 Inactive cefdinir 300 mg Cap RxNorm: 607414 2 Capsule(s) PO QD 08/10/201107/24 Inactive Reglan 10 mg Tab RxNorm: 419080 1 Tablet(s) PO AC & HS 07/15/2011 Inactive Endocet 10 mg-325 mg Tab RxNorm: 9348526 1-2 Tablet(s) PO Q4H 07/1508/13/2011 Inactive PRN PAIN One Touch Ultra Test strips RxNorm: Miscellaneous BID 06/11/2011 1 01/16/2014 Inactive TEST TWO TIMES A DAY lactulose 10 gram/15 mL Oral Soln RxNorm: 786295 Milliliter(s) PO 0 06/10/2011 10/11/2011 Inactive TAKE 1 TABLESPOON BY MOUTH O NCE DAILY Chantix Continuing Month Aníbal 1 mg Tab RxNorm: 854846 Tablet(s) PO 0 06/10/2011 11/02/2011 Inactive TAKE DIRECTED - PER [employer] GE INSTRUCTIONS fluoxetine 40 mg Cap RxNorm: 837993 Capsule(s) PO 06/10/2011 02/02/20 12 Inactive TAKE ONE CAPSULE BY MOUTH EVERY MORNING Chantix Continuing Month Aníbal 1 mg Tab RxNorm: 548746 Ta blet(s) PO TAKE DIRECTED - PER PACKAGE INSTRUCTIONS 05/13/2011 06/09/2011 Inactive Soma 350 mg Tab RxNorm: 719264 Tablet(s) PO TAKE ON E TABLET BY MOUTH THREE TIMES A DAY 05/13/2011 04/18/2012 Inactive Chantix Continuing Month Aníbal 1 mg Tab RxNorm: 602170 Ta blet(s) PO as directed per package instructions. 04/22/2011 05/12/2011 Inactive Symbicort 160 mcg-4.5 mcg/Actuation HFA Aerosol Inhaler RxNo rm: [id number] HFA Aerosol Inhaler INH INHALE 2 PUFFS ORALLY TWO TIMES A DAY 04/13/2011 Inactive Synthroid 112 mcg Tab RxNorm: 906010 Tablet(s) PO TAKE ONE TABLET BY MOUTH EVERY DAY 04/13/2011 10/12/2011 Inactive Premarin 0.9 mg Tab RxNorm: 503922 Tablet(s) PO TAKE ON E TABLET BY MOUTH EVERY DAY 04/13/2011 10/12/2011 Inactive gabapentin 800 mg Tab RxNorm: 247815 Tablet(s) PO TAKE ONE TABLET BY MOUTH EVERY DAY 04/13/2011 10/12/2011 Inactive Prevacid 30 mg Cap RxNorm: 783490 1 Capsule(s) PO QD 04/13/201110/11 Inactive Spiriva with HandiHaler 18 mcg & inhalation Caps RxNorm: 580 261 Capsule(s) INH INHALE CONTENTS OF 1 CAPSULE(S) WITH HANDIHALER ONCE DAILY 04/13/2011 12/21/2011 Inactive metformin ER 500 mg 24 hr Tab RxNorm: 538751 Tablet(s) PO TAKE ONE TABLET BY MOUTH EVERY DAY 04/13/2011 10/12/2011 Inactive Soma 350 mg Tab RxNorm: 769295 1 Tablet(s) PO QID 03/30/2011 02/13/20 19 Inactive fluoxetine 20 mg Cap RxNorm: 274680 Capsule(s) PO TAKE ONE CAPSULE BY MOUTH EVERY DAY 03/25/2011 10/12/2011 Inactive cefdinir 300 mg Cap RxNorm: 892508 2 Capsule(s) PO QD 03/19/201105/2011 Inactive 16.2 mg-0.1037 mg-0.0194 mg Tab RxNorm: 2962703 2 Tablet(s) PO TID PRN for gas and cramping 03/16/2011 07/13/2011 Inactive Soma 350 mg Tab RxNorm: 532802 2 Tablet(s) PO TID 03/16/2011 03/29/20 11 Inactive Chantix Starting Month Aníbal 0.5 mg (11)-1 mg (3x14) Tab s in a Dose Pack RxNorm: 488244 Tablet(s) PO as directed 03/02/2011 No Stop Date Active diazepam 10 mg Tab RxNorm: 166157 1 Tablet(s) PO BID 02/10/201101/19 Inactive Zofran 4 mg tablet RxNorm: 096706 1 Tablet(s) PO Q4H prn nausea 02/16/2011 Inactive Diflucan 100 mg Tab RxNorm: 436185 1 Tablet(s) PO QD 01/18/201101/24 Inactive Premarin 0.625 mg/g Vaginal Cream RxNorm: 395686 VAG In sert 1gm vaginally at bedtime 3 times weekly 01/18/2011 02/12/2019 Inactive loratadine 10 mg Tab RxNorm: 6534749 1 Tablet(s) PO QD 12/17/201003/2012 Inactive Spiriva with HandiHaler 18 mcg & inhalation Caps RxNorm: 580 261 1 Capsule(s) INH QD 12/17/2010 04/12/2011 Inactive Diflucan 100 mg Tab RxNorm: 497724 1 Tablet(s) PO QD 12/17/201012/23 Inactive diazepam 10 mg Tab RxNorm: 216853 1 Tablet(s) PO BID and PRN 201002/12/2019 Inactive One Touch Ultra Test Strips RxNorm: InVt BID Zainab t blood sugar at least twice daily. 11/11/2010 06/11/2011 Inactive fluoxetine 40 mg Cap RxNorm: 570421 1 Capsule(s) PO QAM 11/11/2010 Inactive diazepam 10 mg Tab RxNorm: 039253 1 Tablet(s) PO BID and PRN 200911/12/2010 Inactive Bactrim DS 800 mg-160 mg Tab RxNorm: 199755 1 Tablet(s) PO BID 09/2210/15/2010 Inactive fluoxetine 20 mg Cap RxNorm: 008426 1 Capsule(s) PO QD 10/02/201008/2011 Inactive Bactrim DS 800 mg-160 mg Tab RxNorm: 222811 1 Tablet(s) PO BID 01/201010/03/2010 Inactive Zofran 4 mg Tab RxNorm: 434036 1 Tablet(s) PO Q4H prn nausea 200910/16/2010 Inactive 16.2 mg-0.1037 mg-0.0194 mg Tab RxNorm: 4351219 2 Tablet(s) PO TID PRN for gas and cramping 09/17/2010 10/21/2010 Inactive Gabapentin 800 mg Tab RxNorm: 538836 1 Tablet(s) PO QD 09/16/2010 Inactive ProAir HFA 90 mcg/Actuation Aerosol Inhaler RxNorm: 396735 2 Puff(s) INH Q4H prn shortness of breath 09/15/2010 12/13/2010 Inactive gabapentin 800 mg Tab RxNorm: 080776 1 Tablet(s) PO QD 09/15/2010 Inactive Prevacid 30 mg Cap RxNorm: 747210 1 Capsule(s) PO QD 09/15/201004/12 Inactive loratadine 10 mg Tab RxNorm: 6039009 1 Tablet(s) PO QD 09/15/2010 Inactive Premarin 0.9 mg Tab RxNorm: 151625 1 Tablet(s) PO QD 09/15/201004/12 Inactive Synthroid 112 mcg Tab RxNorm: 627105 1 Tablet(s) PO QD 09/15/2010 Inactive metformin ER 500 mg 24 hr Tab RxNorm: 299497 1 Tablet(s) PO QD 08/2304/12/2011 Inactive Symbicort 160 mcg-4.5 mcg/Actuation Inhalation HFA Aer osol Inhaler RxNorm: 9514621 2 Puff(s) INH BID 09/15/2010 04/12/2011 Inactive diazepam 10 mg Tab RxNorm: 081123 1 Tablet(s) PO BID and PRN 200910/13/2010 Inactive Phentermine 37.5 mg Cap RxNorm: 181392 1 Capsule(s) PO QD 09/02/2010 11/02/2011 Inactive ProAir HFA 90 mcg/Actuation Aerosol Inhaler RxNorm: 329027 2 Puff(s) INH Q4H prn shortness of breath 08/07/2010 No Stop Date Active Premarin 0.9 mg Tab RxNorm: 565613 1 Tablet(s) PO QD 08/07/201009/14 Inactive Loratadine 10 mg Tab RxNorm: 6395119 1 Tablet(s) PO QD 08/07/2010 Inactive Lactulose 10 gram/15 mL Oral Soln RxNorm: 740432 1 Unit Dose PO QD 08/07/2010 02/12/2019 Inactive Zofran 4 mg Tab RxNorm: 236633 1 Tablet(s) PO Q4H prn nausea 2009 No Stop Date Active Gabapentin 800 mg Tab RxNorm: 313699 1 Tablet(s) PO QD 08/07/2010 Inactive Synthroid 112 mcg Tab RxNorm: 918478 1 Tablet(s) PO QD 08/07/2010 Inactive Metformin ER 500 mg 24 hr Tab RxNorm: 646948 1 Tablet(s) PO QD 07/2309/14/2010 Inactive Vitamin D 1,000 unit Tab RxNorm: 997966 1 Tablet(s) PO TID 08/07/2002/12/2019 Inactive Symbicort 160 mcg-4.5 mcg/Actuation Inhalation HFA Aer osol Inhaler RxNorm: 1157779 2 Puff(s) INH BID 08/07/2010 09/14/2010 Inactive Prevacid 30 mg Cap RxNorm: 670884 1 Capsule(s) PO QD 08/07/201009/14 Inactive Metformin ER 500 mg 24 hr Tab RxNorm: 036449 1 Tablet(s) PO QD 06/2308/06/2010 Inactive Vitamin D 1,000 unit Tab RxNorm: 847153 1 Tablet(s) PO TID 07/14/2008/06/2010 Inactive Synthroid 112 mcg Tab RxNorm: 095899 1 Tablet(s) PO QD 07/14/2010 Inactive Lactulose 10 gram/15 mL Oral Soln RxNorm: 168145 1 Unit Dose PO QD 07/14/2010 08/06/2010 Inactive Levaquin 500 mg Tab RxNorm: 332460 1 Tablet(s) PO QD 07/14/201007/27 Inactive Premarin 0.9 mg Tab RxNorm: 556186 1 Tablet(s) PO QD 07/14/201008/06 Inactive ProAir HFA 90 mcg/Actuation Aerosol Inhaler RxNorm: 447286 2 Puff(s) INH Q4H prn shortness of breath 07/14/2010 No Stop Date Active Prevacid 30 mg Cap RxNorm: 167069 1 Capsule(s) PO QD 07/14/201008/06 Inactive Zofran 4 mg Tab RxNorm: 056868 1 Tablet(s) PO Q4H prn nausea 2009 No Stop Date Active Symbicort 160 mcg-4.5 mcg/Actuation Inhalation HFA Aer osol Inhaler RxNorm: 4103854 2 Puff(s) INH BID 07/14/2010 08/06/2010 Inactive Loratadine 10 mg Tab RxNorm: 8235263 1 Tablet(s) PO QD 07/14/2010 Inactive Gabapentin 800 mg Tab RxNorm: 000463 1 Tablet(s) PO QD 07/14/2010 Inactive Metformin ER 500 mg 24 hr Tab RxNorm: 636248 1 Tablet(s) PO 010 07/13/2010 Inactive Diazepam 10 mg Tab RxNorm: 404908 1 Tablet(s) PO BID and PRN 200909/06/2010 Inactive Premarin 0.9 mg Tab RxNorm: 322645 1 Tablet(s) PO QD 06/09/201007/13 Inactive Zofran 4 mg Tab RxNorm: 808967 1 Tablet(s) PO Q4H prn nausea 2009 No Stop Date Active ProAir HFA 90 mcg/Actuation Aerosol Inhaler RxNorm: 563642 2 Puff(s) INH Q4H prn shortness of breath 06/09/2010 No Stop Date Active Gabapentin 800 mg Tab RxNorm: 922389 1 Tablet(s) PO QD 06/09/2010 Inactive Loratadine 10 mg Tab RxNorm: 3654809 1 Tablet(s) PO QD 06/09/2010 Inactive Lactulose 10 gram/15 mL Oral Soln RxNorm: 760674 1 Unit Dose PO QD 06/09/2010 07/13/2010 Inactive Prevacid 30 mg Cap RxNorm: 402821 1 Capsule(s) PO QD 06/09/201007/13 Inactive Synthroid 112 mcg Tab RxNorm: 018240 1 Tablet(s) PO QD 06/09/2010 Inactive Symbicort 160 mcg-4.5 mcg/Actuation Inhalation HFA Aer osol Inhaler RxNorm: 5931094 2 Puff(s) INH BID 06/09/2010 07/13/2010 Inactive Omnicef 300 mg Cap RxNorm: 700659 2 Capsule(s) PO QD 05/07/201005/20 Inactive Metformin 500 mg Tab RxNorm: 465998 1 Tablet(s) PO QD 05/06/201005/22 Inactive ProAir HFA 90 mcg/Actuation Aerosol Inhaler RxNorm: 696619 2 Puff(s) INH Q4H prn shortness of breath 05/06/2010 No Stop Date Active lactulose 10 gram/15 mL Oral Soln RxNorm: 439889 1 Unit Dose PO QD 05/06/2010 06/10/2011 Inactive Loratadine 10 mg Tab RxNorm: 3106592 1 Tablet(s) PO QD 05/06/2010 Inactive Synthroid 112 mcg Tab RxNorm: 566124 1 Tablet(s) PO QD 05/06/2010 Inactive Symbicort 160 mcg-4.5 mcg/Actuation Inhalation HFA Aer osol Inhaler RxNorm: 7718909 2 Puff(s) INH BID 05/06/2010 06/08/2010 Inactive Gabapentin 800 mg Tab RxNorm: 195791 1 Tablet(s) PO QD 05/06/2010 Inactive 16.2 mg-0.1037 mg-0.0194 mg Tab RxNorm: 6543099 2 Tablet(s) PO TID PRN for gas and cramping 05/06/2010 05/12/2010 Inactive Zofran 4 mg Tab RxNorm: 590800 1 Tablet(s) PO Q4H prn nausea 200904/13/2010 Inactive MS Contin 60 mg Tab RxNorm: 405215 3 Tablet(s) PO BID 04/09/201004/22 Inactive Soma 350 mg Tab RxNorm: 098094 2 Tablet(s) PO TID 04/09/2010 05/08/20 10 Inactive Symbicort 160 mcg-4.5 mcg/Actuation Inhalation HFA Aer osol Inhaler RxNorm: 0343280 2 Puff(s) INH BID 04/08/2010 05/05/2010 Inactive Doxycycline 100 mg Cap RxNorm: 3874653 1 Capsule(s) PO BID 04/08/20 10 04/17/2010 Inactive Triamterene-Hydrochlorothiazide 37.5 mg-25 mg Cap RxNorm: 19 8316 1 Capsule(s) PO QAM 04/08/2010 09/04/2010 Inactive fluoxetine 40 mg Cap RxNorm: 603694 1 Capsule(s) PO QAM 04/08/2010 Inactive Morphine SR 120 mg multiphase 24 hr Cap RxNorm: 377205 1 Capsul e(s) PO 03/11/2010 04/07/2010 Inactive Endocet 10 mg-325 mg Tab RxNorm: 9913582 1-2 Tablet(s) PO Q4H IA N PAIN 03/11/2010 04/09/2010 Inactive Savella 100 mg Tab RxNorm: 623857 1 Tablet(s) PO BID 03/10/201004/09 Inactive Soma 350 mg Tab RxNorm: 979671 1 Tablet(s) PO TID prn spasm 010 04/09/2010 Inactive Savella 100 mg Tab RxNorm: 475367 1 Tablet(s) PO BID 02/03/201004/09 Inactive Aspirin 81 mg Tab RxNorm: 122097 1 Tablet(s) PO QD No Start Date Active Zyrtec 10 mg Tab RxNorm: 9973605 1 Tablet(s) PO QD No Start Date Active One Touch Ultra Test Strips RxNorm: Misc test at least t wice daily. No Start Date Active coenzyme Q10 200 mg capsule RxNorm: 665157 1 Capsule(s) PO QD No Star t Date Active One Touch Ultra Test Strips RxNorm: InVt BID Zainab t blood sugar at least twice daily. No Start Date 11/10/2010 Inactive Gabapentin 800 mg Tab RxNorm: 195269 1 Tablet(s) PO QD No Start Date 05/05/2010 Inactive Abilify 5 mg tablet RxNorm: 832379 1 Tablet(s) PO QD No Start Date Inactive Chantix 1 mg Tab RxNorm: 859138 1 Tablet(s) PO BID No Start Date 10/22 Inactive Ozempic 0.25 mg or 0.5 mg (2 mg/1.5 mL) subcutaneous p en injector RxNorm: 7079468 .25 Milligram(s) SQ QW No Start Date 07/04/2019 Inactive lancets 28 gauge RxNorm: Miscellaneous As needed for blo od glucose sticks No Start Date 08/23/2013 Inactive potassium chloride ER 20 mEq tablet,extended release RxNorm: 995226 2 Tablet(s) PO QD No Start Date 09/26/2018 Inactive Ventolin HFA 90 mcg/actuation Aerosol Inhaler RxNorm: 850106 2 Puff(s) INH Q4H prn No Start Date 01/17/2012 Inactive potassium chloride ER 20 mEq tablet,extended release RxNorm: 101285 2 Tablet(s) PO QD No Start Date 10/19/2018 Inactive Januvia 100 mg tablet RxNorm: 912556 1 Tablet(s) PO QD No Start Date 09/10/2015 Inactive Medrol (Aníbal) 4 mg Tabs in a Dose Pack RxNorm: 698749 Tablet(s) PO N o Start Date 08/09/2011 Inactive as directed Zithromax Z-Aníbal 250 mg Tab RxNorm: 949875 Tablet(s) PO No Start Date 01/25/2012 Inactive as directed vitamin B6-vitamin E-magnesium tablet RxNorm: 1 Tablet(s ) PO QHS with INH No Start Date 03/30/2018 Inactive prednisone 20 mg Tab RxNorm: 267390 1 Tablet(s) PO TID for 1wk then 1 po BID for 1wk No Start Date 01/25/2012 Inactive furosemide 40 mg tablet RxNorm: 020921 1 Tablet(s) PO QAM No Start Date 10/09/2018 Inactive Vitamin D3 1000 units Capsule RxNorm: 1 Capsule(s) PO TID No S tart Date 03/19/2015 Inactive Zofran 4 mg Tab RxNorm: 670686 1 Tablet(s) PO Q4H prn nausea No Sta rt Date 04/13/2010 Inactive Premarin 0.625 mg/g Vaginal Cream RxNorm: 333719 1 Gram (s) VAG QHS 3 times a week No Start Date 09/22/2017 Inactive oxycodone 10 mg tablet RxNorm: 3709446 1-2 Tablet(s) PO QID as n eeded for pain No Start Date 11/04/2015 Inactive Nicoderm CQ 21 mg/24 hr daily Patch RxNorm: 854604 1 Applicatio n TD QD No Start Date 08/05/2015 Inactive Topamax 50 mg tablet RxNorm: 556771 1/2 Tablet(s) PO QH S for 1wk then 1 po q HS for 1wk then 2 po q HS No Start Date 06/27/2012 Inactive Chantix Starting Month Aníbal 0.5 mg (11)-1 mg (3x14) Tab s in a Dose Pack RxNorm: 326933 Tablet(s) PO as directed No Start Date 03/01/2011 Inactive Trulicity 0.75 mg/0.5 mL subcutaneous pen injector RxNorm: 1 457353 Milliliter(s) SQ No Start Date 07/04/2019 Inactive Medrol (Aníbal) 4 mg Tabs in a Dose Pack RxNorm: 311945 Tablet(s) PO N o Start Date 01/25/2012 Inactive as directed Duragesic 100 mcg/hr Transderm Patch RxNorm: 061873 2 A pplication TD Q48H for pain No Start Date 09/05/2013 Inactive Premarin 0.9 mg Tab RxNorm: 792876 1 Tablet(s) PO QD No Start Date Inactive Zithromax Z-Aníbal 250 mg Tab RxNorm: 960152 Tablet(s) PO as direc chinmay No Start Date 01/25/2012 Inactive ondansetron 8 mg disintegrating tablet RxNorm: 359192 1 Tablet(s) PO Q6H as needed No Start Date 10/10/2018 Inactive oxycodone 15 mg tablet RxNorm: 4302482 1 Tablet(s) PO QID as nee ded for pain No Start Date 03/05/2019 Inactive ProAir HFA 90 mcg/Actuation Aerosol Inhaler RxNorm: 963273 2 Puff(s) INH Q4H prn for wheezing or shortness of breath No Start Date 12/21/2011 Inactive pravastatin 40 mg tablet RxNorm: 742906 1/2 Tablet(s) PO QOD No Sta rt Date 04/09/2015 Inactive ipratropium-albuterol 0.5 mg-3 mg(2.5 mg base)/3 mL ne bulization soln RxNorm: 0431425 1 Unit Dose INH Q4H as needed No Start Date 09/09/2016 Inactive furosemide 40 mg tablet RxNorm: 934097 1 Tablet(s) PO QAM as ne eded No Start Date 09/24/2019 Inactive Vitamin D2 oral RxNorm: 4018 oral No Start Date 03/18/2015 Inacti ve pravastatin 40 mg tablet RxNorm: 271944 1/2 Tablet(s) PO QD No Star t Date 04/09/2015 Inactive ondansetron HCl 4 mg tablet RxNorm: 550043 1 Tablet(s) PO Q4H as needed for nausea and vomiting No Start Date 04/07/2016 Inactive furosemide 40 mg tablet RxNorm: 236386 2 Tablet(s) PO QAM No Start Date 09/26/2018 Inactive gabapentin 800 mg tablet RxNorm: 765188 1/2 Tablet(s) PO BID No Sta rt Date 06/21/2017 Inactive gabapentin 800 mg tablet RxNorm: 561623 1/2 Tablet(s) PO BID No Sta rt Date 07/05/2017 Inactive ProAir HFA 90 mcg/Actuation Aerosol Inhaler RxNorm: 544752 2 Puff(s) INH Q4H prn shortness of breath No Start Date 05/05/2010 Inactive scopolamine 1 mg over 3 days transdermal patch RxNorm: 04259 2 1 Application TD behind ear. Take off after three days No Start Date 10/10/2018 Inactive Metformin 500 mg Tab RxNorm: 182217 1 Tablet(s) PO QD No Start Date 0 05/05/2010 Inactive MS Contin 200 mg Tab RxNorm: 412485 1 Tablet(s) PO BID No Start Date 08/20/2011 Inactive Belladonna-Phenobarbital 48 mg tablet,extended release RxNor m: 2 Tablet(s) PO TID No Start Date 06/04/2016 Inactive Synthroid 112 mcg Tab RxNorm: 350969 1 Tablet(s) PO QD No Start Date 05/05/2010 Inactive Zegerid 40 mg-1.1 gram Cap RxNorm: 749907 1 Capsule(s) PO QD No Sta rt Date 01/25/2012 Inactive Premarin 0.625 mg/g Vaginal Cream RxNorm: 579776 VAG In sert 1gm vaginally at bedtime 3 times weekly No Start Date 01/17/2011 Inactive potassium chloride ER 20 mEq tablet,extended release RxNorm: 912690 1 Tablet(s) PO QD No Start Date 04/24/2019 Inactive methocarbamol 750 mg tablet RxNorm: 491217 2 Tablet(s) PO TID as needed for muscle spasm No Start Date 07/08/2014 Inactive Biaxin XL Aníbal 500 mg 24 hr Tab RxNorm: 687644 Tablet(s) PO as d irected No Start Date 04/24/2013 Inactive Vitamin D3 1,000 unit tablet RxNorm: 355068 3 Tablet(s) PO QD No St art Date 06/01/2017 Inactive Morphine SR 120 mg multiphase 24 hr Cap RxNorm: 895794 1 Capsul e(s) PO BID No Start Date 04/09/2010 Inactive Silvadene 1 % topical cream RxNorm: 311833 1 Application TOP BI D to burn area No Start Date 01/31/2017 Inactive Prednisone 20 mg Tab RxNorm: 260064 1 Tablet(s) PO TID for 3days then BID for 4days No Start Date 01/25/2012 Inactive gabapentin 600 mg tablet RxNorm: 232109 1 Tablet(s) PO BID No Start Date 01/21/2015 Inactive topiramate 50 mg tablet RxNorm: 786381 1 Tablet(s) PO QHS No Start Date 03/30/2018 Inactive Januvia 100 mg tablet RxNorm: 417652 1/2 Tablet(s) PO QD No Start D ate 12/25/2015 Inactive Diazepam 10 mg Tab RxNorm: 712770 1 Tablet(s) PO BID and PRN No Sta rt Date 06/08/2010 Inactive Medication Administered No Medication Administered data Immunizations Vaccine Codes Date Status Influenza CVX: 141 09/28/2012 Pneumovax Unknown 09/28/2012 Influenza (Adult) CVX: 141 09/02/2010 Results No Results data Procedures Procedure Codes Date THER/PROPH/DIAG INJ SC/IM CPT-4: 78217 07/10/2019 METHYLPREDNISOLONE INJECTION CPT-4: J2930 07/10/2019 URINALYSIS NONAUTO W/O SCOPE CPT-4: 59274 09/06/2018 URINE CULTURE/ COLONY COUNT CPT-4: 33772 09/06/2018 DRAIN/INJECT JOINT/BURSA CPT-4: 16119 04/29/2017 TRIAMCINOLONE ACET INJ NOS CPT-4: J3301 04/29/2017 DEXAMETHASONE SODIUM PHOS CPT-4: J1100 04/29/2017 INFLUENZA ASSAY W/OPTIC CPT-4: 23970 12/01/2016 RESPIRATORY CULTURE & STAIN CPT-4: 54121 07/09/2016 TB INTRADERMAL TEST CPT-4: 35797 04/21/2016 DRAIN/INJECT JOINT/BURSA CPT-4: 02950 11/07/2013 METHYLPREDNISOLONE 40 MG INJ CPT-4: J1030 11/07/2013 TRIAMCINOLONE ACET INJ NOS CPT-4: J3301 11/07/2013 DRAIN/INJECT JOINT/BURSA CPT-4: 66126 08/08/2013 METHYLPREDNISOLONE 40 MG INJ CPT-4: J1030 08/08/2013 TRIAMCINOLONE ACET INJ NOS CPT-4: J3301 08/08/2013 FLU VACCINE 3 YRS & > IM UP 64 CPT-4: 01823 2 PNEUMOCOCCAL VACC 23 ADITYA IM CPT-4: 64874 09/28/2012 IMMUNIZATION ADMIN CPT-4: 33372 09/28/2012 IMMUNIZATION ADMIN EACH ADD CPT-4: 43536 09/28/2012 FLU VACCINE 3 YRS & > IM UP 64 CPT-4: 50497 0 IMMUNIZATION ADMIN CPT-4: 90232 09/02/2010 METHYLPREDNISOLONE INJECTION CPT-4: J2930 05/07/2010 THER/PROPH/DIAG INJ SC/IM CPT-4: 17386 05/07/2010 Vital Signs Date Vital 11/29/2019 Blood [...] 1: 122/78 Code: 8480-6 BMI: 29.5 Code: 03857-3 Heart Rate 1: 76 bpm Height: 5'4" Respiratory Rate: 20 bpm SpO2: 96% Tempera ture: 37.0 (C) / 98.6 (F) Weight: 172 lbs 01/25/2019 Blood Pressure 1: 132/80 Code: 8480-6 BMI: 29.7 Code: 20458-7 Heart Rate 1: 84 bpm Height: 5'4" Respiratory Rate: 22 bpm SpO2: 98% Tempera ture: 36.9 (C) / 98.4 (F) Weight: 173 lbs 01/03/2019 Blood Pressure 1: 116/70 Code: 8480-6 BMI: 29.5 Code: 34983-3 Heart Rate 1: 92 bpm Height: 5'4" Respiratory Rate: 24 bpm SpO2: 98% Tempera ture: 37.2 (C) / 98.9 (F) Weight: 172 lbs 11/21/2018 Blood Pressure 1: 146/82 Code: 8480-6 BMI: 28.2 Code: 27505-9 Heart Rate 1: 88 bpm Height: 5'4" Respiratory Rate: 22 bpm SpO2: 97% Tempera ture: 36.9 (C) / 98.4 (F) Weight: 164 lbs 10/27/2018 Blood Pressure 1: 122/70 Code: 8480-6 BMI: 27.6 Code: 54105-8 Heart Rate 1: 88 bpm Height: 5'4" Respiratory Rate: 20 bpm SpO2: 96% Tempera ture: 36.8 (C) / 98.3 (F) Weight: 161 lbs 10/18/2018 Blood Pressure 1: 126/70 Code: 8480-6 BMI: 28.3 Code: 85312-8 Heart Rate 1: 76 bpm Height: 5'4" Respiratory Rate: 20 bpm SpO2: 95% Tempera ture: 37.0 (C) / 98.6 (F) Weight: 165 lbs 09/27/2018 Blood Pressure 1: 124/78 Code: 8480-6 BMI: 27.1 Code: 12936-5 Heart Rate 1: 88 bpm Height: 5'4" Respiratory Rate: 20 bpm SpO2: 98% Tempera ture: 36.4 (C) / 97.6 (F) Weight: 158 lbs 09/14/2018 Blood Pressure 1: 140/72 Code: 8480-6 BMI: 26.1 Code: 10837-4 Heart Rate 1: 100 bpm Height: 5'4" Respiratory Rate: 20 bpm SpO2: 97% Tempera ture: 36.9 (C) / 98.4 (F) Weight: 152 lbs 09/06/2018 Blood Pressure 1: 156/82 Code: 8480-6 BMI: 26.3 Code: 02939-0 Heart Rate 1: 100 bpm Height: 5'4" Respiratory Rate: 28 bpm SpO2: 95% Tempera ture: 37.2 (C) / 98.9 (F) Weight: 153 lbs 08/16/2018 Blood Pressure 1: 130/78 Code: 8480-6 Heart Rate 1: 87 bpm Respiratory Rate: 24 bpm SpO2: 94% Temperature: 36.9 (C) / 98.4 (F) We ight: 147 lbs 8 oz 07/07/2018 Blood Pressure 1: 116/78 Code: 8480-6 BMI: 22.7 Code: 96213-7 Heart Rate 1: 88 bpm Height: 5'4" Respiratory Rate: 22 bpm SpO2: 98% Tempera ture: 36.5 (C) / 97.7 (F) Weight: 132 lbs 05/31/2018 Blood Pressure 1: 128/78 Code: 8480-6 BMI: 22.3 Code: 57890-2 Heart Rate 1: 92 bpm Height: 5'4" Respiratory Rate: 26 bpm SpO2: 94% Tempera ture: 36.7 (C) / 98.1 (F) Weight: 130 lbs 03/31/2018 Blood Pressure 1: 136/78 Code: 8480-6 BMI: 21.5 Code: 32875-8 Heart Rate 1: 76 bpm Height: 5'4" Respiratory Rate: 24 bpm SpO2: 95% Tempera ture: 36.8 (C) / 98.3 (F) Weight: 125 lbs 01/26/2018 Blood Pressure 1: 142/64 Code: 8480-6 BMI: 20.6 Code: 70081-1 Heart Rate 1: 90 bpm Height: 5'4" Respiratory Rate: 24 bpm SpO2: 92% Tempera ture: 36.3 (C) / 97.3 (F) Weight: 120 lbs 10/26/2017 Blood Pressure 1: 124/70 Code: 8480-6 BMI: 20.3 Code: 86887-9 Heart Rate 1: 76 bpm Height: 5'4" Respiratory Rate: 22 bpm SpO2: 94% Tempera ture: 36.7 (C) / 98.1 (F) Weight: 118 lbs 09/23/2017 Blood Pressure 1: 106/70 Code: 8480-6 BMI: 19.2 Code: 07893-9 Heart Rate 1: 76 bpm Height: 5'4" Respiratory Rate: 20 bpm SpO2: 94% Tempera ture: 36.8 (C) / 98.3 (F) Weight: 112 lbs 08/12/2017 Blood Pressure 1: 116/68 Code: 8480-6 BMI: 20.1 Code: 86768-5 Heart Rate 1: 80 bpm Height: 5'4" Respiratory Rate: 22 bpm SpO2: 95% Tempera ture: 36.8 (C) / 98.2 (F) Weight: 117 lbs 07/06/2017 Blood Pressure 1: 136/78 Code: 8480-6 BMI: 20.6 Code: 90938-4 Heart Rate 1: 76 bpm Height: 5'4" Respiratory Rate: 24 bpm SpO2: 96% Tempera ture: 36.8 (C) / 98.2 (F) Weight: 120 lbs 06/02/2017 Blood Pressure 1: 112/70 Code: 8480-6 Heart Rate 1: 92 bpm Height: 5'4" Respiratory Rate: 24 bpm SpO2: 95% Temperature: 37.0 (C) / 98.6 (F) Weight: 04/29/2017 Blood Pressure 1: 94/52 Code: 8480-6 BMI: 19.6 C ode: 40544-0 Heart Rate 1: 84 bpm Height: 5'4" [...] 92/58 Code: 8480-6 BMI: 19.2 C ode: 98211-4 Heart Rate 1: 84 bpm Height: 5'4" Respiratory Rate: 26 bpm SpO2: 95% Tempera ture: 36.7 (C) / 98.0 (F) Weight: 112 lbs 12/01/2016 Blood Pressure 1: 114/70 Code: 8480-6 BMI: 19.2 Code: 11954-1 Heart Rate 1: 96 bpm Height: 5'4" Respiratory Rate: 28 bpm SpO2: 93% Tempera ture: 38.3 (C) / 101.0 (F) Weight: 112 lbs 10/27/2016 Blood Pressure 1: 126/66 Code: 8480-6 BMI: 19.6 Code: 62412-3 Heart Rate 1: 92 bpm Height: 5'4" Respiratory Rate: 28 bpm SpO2: 90% Tempera ture: 36.8 (C) / 98.3 (F) Weight: 114 lbs 09/09/2016 Blood Pressure 1: 126/74 Code: 8480-6 Heart Rate 1: 104 bpm Height: 5'4" Respiratory Rate: 32 bpm SpO2: 88% Temperature: 37 .2 (C) / 99.0 (F) 08/26/2016 Blood Pressure 1: 134/82 Code: 8480-6 BMI: 22.0 Code: 46046-9 Heart Rate 1: 84 bpm Height: 5'4" Respiratory Rate: 24 bpm SpO2: 94% Tempera ture: 36.8 (C) / 98.3 (F) Weight: 128 lbs 05/21/2016 Blood Pressure 1: 142/80 Code: 8480-6 BMI: 21.6 Code: 23183-2 Heart Rate 1: 104 bpm Height: 5'4" Respiratory Rate: 22 bpm SpO2: 93% Tempera ture: 36.0 (C) / 96.8 (F) Weight: 126 lbs 03/25/2016 Blood Pressure 1: 126/62 Code: 8480-6 Heart Rate 1: 88 bpm Respiratory Rate: 20 bpm SpO2: 92% Temperature: 36.8 (C) / 98.3 (F) We ight: 130 lbs 01/23/2016 Blood Pressure 1: 146/82 Code: 8480-6 BMI: 24.1 Code: 77225-1 Heart Rate 1: 92 bpm Height: 5'3" Respiratory Rate: 22 bpm Temperature: 37 .1 (C) / 98.8 (F) Weight: 136 lbs 12/26/2015 Blood Pressure 1: 142/78 Code: 8480-6 BMI: 24.6 Code: 19089-6 Heart Rate 1: 78 bpm Height: 5'3" Respiratory Rate: 20 bpm Temperature: 36 .7 (C) / 98.1 (F) Weight: 139 lbs 12/03/2015 Blood Pressure 1: 126/60 Code: 8480-6 BMI: 24.6 Code: 79317-9 Heart Rate 1: 100 bpm Height: 5'3" Respiratory Rate: 28 bpm Temperature: 37 .6 (C) / 99.6 (F) Weight: 139 lbs 09/10/2015 Blood Pressure 1: 124/64 Code: 8480-6 BMI: 23.7 Code: 47038-1 Heart Rate 1: 88 bpm Height: 5'3" Respiratory Rate: 24 bpm SpO2: 95% Tempera ture: 36.4 (C) / 97.6 (F) Weight: 134 lbs 08/06/2015 Blood Pressure 1: 114/76 Code: 8480-6 BMI: 23.2 Code: 67831-9 Heart Rate 1: 88 bpm Height: 5'3" Respiratory Rate: 22 bpm Temperature: 36 .6 (C) / 97.9 (F) Weight: 131 lbs 07/18/2015 Blood Pressure 1: 144/78 Code: 8480-6 BMI: 23.7 Code: 87832-4 Heart Rate 1: 84 bpm Height: 5'3" Respiratory Rate: 20 bpm Temperature: 37 .2 (C) / 99.0 (F) Weight: 134 lbs 04/10/2015 Blood Pressure 1: 110/64 Code: 8480-6 Heart Rate 1: 80 bpm Height: Respiratory Rate: 20 bpm Temperature: 37.1 (C) / 98.8 (F) Weight: 03/05/2015 Blood Pressure 1: 136/80 Code: 8480-6 BMI: 23.9 Code: 92827-0 Heart Rate 1: 76 bpm Height: 5'3" Respiratory Rate: 24 bpm Temperature: 37 .0 (C) / 98.6 (F) Weight: 135 lbs 01/30/2015 Blood Pressure 1: 142/80 Code: 8480-6 BMI: 23.0 Code: 93088-8 Heart Rate 1: 96 bpm Height: 5'3" Respiratory Rate: 22 bpm Temperature: 36 .2 (C) / 97.2 (F) Weight: 130 lbs 01/02/2015 Blood Pressure 1: 124/70 Code: 8480-6 BMI: 23.4 Code: 86170-5 Heart Rate 1: 84 bpm Height: 5'3" Respiratory Rate: 24 bpm SpO2: 95% Tempera ture: 36.9 (C) / 98.5 (F) Weight: 132 lbs 10/03/2014 Blood Pressure 1: 106/68 Code: 8480-6 BMI: 22.5 Code: 03113-8 Heart Rate 1: 88 bpm Height: 5'3" Respiratory Rate: 24 bpm Temperature: 37 .0 (C) / 98.6 (F) Weight: 127 lbs 08/27/2014 Blood Pressure 1: 124/68 Code: 8480-6 BMI: 21.1 Code: 10173-7 Heart Rate 1: 88 bpm Height: 5'3" [...] 1: 120/70 Code: 8480-6 BMI: 19.2 Code: 34160-9 Heart Rate 1: 70 bpm Height: 5'4" Respiratory Rate: 20 bpm Temperature: 36 .9 (C) / 98.4 (F) Weight: 112 lbs 06/28/2013 Blood Pressure 1: 102/68 Code: 8480-6 BMI: 19.6 Code: 84369-9 Heart Rate 1: 76 bpm Height: 5'4" Respiratory Rate: 20 bpm Temperature: 36 .8 (C) / 98.2 (F) Weight: 114 lbs 05/31/2013 Blood Pressure 1: 106/70 Code: 8480-6 BMI: 18.9 Code: 97315-8 Heart Rate 1: 100 bpm Height: 5'4" Respiratory Rate: 20 bpm Temperature: 36 .4 (C) / 97.6 (F) Weight: 110 lbs 05/03/2013 Blood Pressure 1: 126/70 Code: 8480-6 BMI: 19.1 Code: 51639-8 Heart Rate 1: 88 bpm Height: 5'4" Respiratory Rate: 20 bpm Temperature: 37 .1 (C) / 98.8 (F) Weight: 111 lbs 04/25/2013 Blood Pressure 1: 114/68 Code: 8480-6 BMI: 19.4 Code: 58419-2 Heart Rate 1: 92 bpm Height: 5'4" Respiratory Rate: 24 bpm SpO2: 96% Tempera ture: 37.7 (C) / 99.8 (F) Weight: 113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 06/28/2012 Visit Plan: Topamax from Migraine preven tion Smoking cessation 05/03/2012 Appointment: Vika Renteriatel: [address] [place], [place] [phone] 04/26/12: appt rescheduled from 04/26/12 by daughter [...] smoking cessation 03/01/2012 Appointment: Vika Renteria WPtel: [address] [place], [place] [phone] FOLLOW UP 03/01/2012 Patient Education: Patient Medication Summary Completed 03/01/2012 Visit Plan: Overnight pulse ox Smoking C essation Add Daliresp 500mg daily Hold Metformin 01/26/2012 Appointment: Vika Renteria WPtel: [address] [place], [place] [phone] FOLLOW UP 01/26/2012 Patient Education: Patient Medication Summary Completed 01/26/2012 Visit Plan: Discussed methotrexate trial , but do to chronic bronchitis pt wants to hold Smoking cessation Check CMP, CBC, TSH, Free T4, Lipids. ESR, ds DNA, JOVANNY Check EGD 11/03/2011 Appointment: Vika Renteria WPtel: [address] [place], [place] [phone] FOLLOW UP 11/03/2011 Patient Education: Patient Medication Summary Completed 11/03/2011 Appointment: Vika Renteriatel: [address] [place], [place] [phone] 08/10/2011 Patient Education: Patient Medication Summary Completed 08/10/2011 Visit Plan: Supportive care. Rest, Fluid s, Tylenol/Motrin prn fever or bodyaches. Notify if worsening symptoms. Medrol Dose Pack Smoking Cessation and recommend get rid of cat Add Reglan for stomach 07/15/2011 Appointment: Vika Renteriatel: [address] [place] [address] ACUTE ILLNESS 07/15/2011 Patient Education: Patient Medication Summary Completed 07/15/2011 Appointment: Vika Renteria WPtel: [address] [place] [address] FOLLOW UP 04/02/2011 Visit Plan: SVN with Albuterol 0.083% Q4 hrs and Q2hrs prn. Cont smoking Cessation 03/19/2011 Appointment: Vika Renteria WPtel: [address] [place] [address] ACUTE ILLNESS 03/19/2011 Patient Education: Patient Medication Summary Completed 03/19/2011 Visit Plan: Repeat Biaxin XL Cont curren t meds Repeat Chantix 01/28/2011 Appointment: Vika Renteria WPtel: [address] [place] [address] FOLLOW UP 01/28/2011 Patient Education: Patient Medication Summary Completed 01/28/2011 Patient Education: Chantix Unbranded Comp leted 01/28/2011 Appointment: Vika Renteria WPtel: [address] [place] [address] FOLLOW UP 01/14/2011 Visit Plan: Finish abx Diflucan for vagi nitis Premarin vaginal cream Smoking cessation 12/17/2010 Appointment: Vika Renteria WPtel: [address] [place] [address] Follow Up 12/17/2010 Patient Education: Patient Medication Summary Completed 12/17/2010 Appointment: Vika Renteria WPtel: [address] [place] [address] FOLLOW UP 11/06/2010 Visit Plan: Start PT Use SVNs every 4hrs Smoking Cessation Change MS Contin to 200mg q 12hrs 2010 Appointment: Vika Renteria WPtel: [address] [place], [place] [phone] FOLLOW UP 2010 Patient Education: Patient Medication Summary Completed 2010 Visit Plan: Prednisone taper for pain an d lungs 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 Increase fluoxetine to 60mg QD for acute stress reaction 10/02/2010 Appointment: Vika Renteria WPtel: [address] [place] [address] FOLLOW UP 10/02/2010 Patient Education: Patient Medication Summary Completed 10/02/2010 Visit Plan: Check CT Head, Cervical, Tho racic, and Lumbar Spine Cont current meds Bactrim for left toe 09/24/2010 Appointment: Vika Renteria WPtel: [address] [place], [place] [phone] CHECK UP 09/24/2010 Patient Education: Patient Medication Summary Completed 09/24/2010 Appointment: Vika Renteria WPtel: [address] [place] [address] FOLLOW UP 09/02/2010 Patient Education: Patient Medication Summary Completed 09/02/2010 Visit Plan: Return for 2nd epidural Obse rve right leg lesion Cont Symbicort and Spiriva 07/14/2010 Appointment: Vika Renteria WPtel: [address] [place], [place] [phone] [place] FOLLOW UP 07/14/2010 Patient Education: Patient Medication Summary Completed 07/14/2010 Appointment: Vika Renteria WPtel: [address] [place], [place] [phone] [place] FOLLOW UP 05/27/2010 Appointment: Vika Renteria WPtel: [address] [place], [place] [phone] [place] FOLLOW UP 05/14/2010 Visit Plan: SVN with Albuterol 0.083% Q4 hrs and Q2hrs prn. Restart Spiriva Smoking Cessation 05/07/2010 Appointment: Vika Renteria WPtel: [phone] [facility] FOLLOW UP 05/07/2010 Patient Education: Patient Medication Summary Completed 05/07/2010 Appointment: Vika Renteria WPtel: [phone] [facility] ACUTE ILLNESS 04/08/2010 Patient Education: Patient Medication Summary Completed 04/08/2010 Referral: Kyle Billings WPtel: [phone] [id number] [place] Referral Completed Referral: Jaylan Matute WPtel: [phone] [facility] [address] [id number] [place] Referral Initiated Referral: Kyle Billings WPtel: [phone] [place] [address] [place] Referral Appointment Requested Instructions Comment . [...]
--- OUTSIDE RECORDS SUMMARY | 2020-04-24 22:03 | XMS REPORT | CCD ---
Author Author Yana Renteria D.O. 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 [employer] Name Role Phone Vika Renteria D.O., PP Unavailable CCM Unavailable Summary Purpose Interface Exchange Insurance Providers Payer name Policy type / Coverage type Covered democrat ID Effective Begin Date Effective End Date [employer] [facility] [place] Medicaid [id number] 2018 U nknown Family History Family History data not found Social History Social History Element Codes Description Effective Dates Marital status Unknown 06/28/[address]: 23596114 Currently smokes tobacco 05/2013 Allergies, Adverse Reactions, [...] Start Date Stop Date Status Fill Instructions ProAir HFA 90 mcg/actuation aerosol inhaler RxNorm: 332106 INHALE ONE PUFF BY MOUTH EVERY 4 HOURS FOR WHEEZING OR FOR SHORTNESS OF BREATH 04/11/2020 No Stop Date Active Daliresp 500 mcg tablet RxNorm: 3597804 TAKE ONE TABLET BY MOUTH DAILY 04/11/2020 No Stop Date Active fluoxetine 20 mg capsule RxNorm: 989250 1 Capsule(s) Oral QD 201905/10/2020 Active fluoxetine 20 mg capsule RxNorm: 863624 1 Capsule(s) Oral QD 201904/09/2020 Inactive levothyroxine 25 mcg tablet RxNorm: 866623 TAKE ONE TAB LET BY MOUTH EVERY MORNING 04/09/2020 No Stop Date Active metformin 500 mg tablet RxNorm: 478253 1 Tablet(s) Oral QD 04/09/20 20 07/08/2020 Active MS Contin 200 mg tablet,extended release RxNorm: 417370 1 Tablet(s) Oral two times a day 03/19/2020 04/17/2020 Active Relistor 150 mg tablet RxNorm: 5585385 TAKE THREE TABLETS BY BENOIT TH DAILY 03/13/2020 No Stop Date Active cyclobenzaprine 10 mg tablet RxNorm: 046812 TAKE ONE TA BLET BY MOUTH THREE TIMES A DAY NEEDED 03/13/2020 No Stop Date Active furosemide 40 mg tablet RxNorm: 636294 TAKE ONE TABLET BY MOUTH EVERY MORNING 03/13/2020 No Stop Date Active hydroxyzine HCl 50 mg tablet RxNorm: 544171 1 Tablet(s) Oral two times a day to take with morphine--replaces benadryl 03/12/2020 04/11/2020 Inactive prednisone 1 mg tablet RxNorm: 953185 1 Tablet(s) Oral two times a day to take with hydroxyzine 03/12/2020 No Stop Date Active prednisolone 5 mg tablet RxNorm: 574052 1 Tablet(s) Oral two ti mes a day 02/22/2020 03/23/2020 Inactive prednisolone 5 mg tablet RxNorm: 065415 1 Tablet(s) Oral two ti mes a day 02/22/2020 02/21/2020 Inactive Symbicort 160 mcg-4.5 mcg/actuation HFA aerosol inhaler RxNo rm: 4220897 INHALE TWO PUFFS BY MOUTH TWICE A DAY 02/19/2020 No Stop Date Active Daliresp 500 mcg tablet RxNorm: 7214016 TAKE ONE TABLET BY MOUTH DAILY 02/19/2020 No Stop Date Active prednisone 20 mg tablet RxNorm: 027227 1 Tablet(s) Oral two yumi es a day 02/13/2020 02/20/2020 Inactive oxycodone 30 mg tablet RxNorm: 3022892 1 Tablet(s) Oral four times a day replaces MS Contin 02/13/2020 02/22/2020 Inactive levothyroxine 25 mcg tablet RxNorm: 748467 TAKE ONE TAB LET BY MOUTH EVERY MORNING 02/09/2020 04/08/2020 Inactive MS Contin 200 mg tablet,extended release RxNorm: 748981 1 Tablet(s) Oral two times a day 02/01/2020 03/01/2020 Inactive Premarin 0.45 mg tablet RxNorm: 665225 TAKE ONE TABLET BY MOUTH DAILY 01/31/2020 No Stop Date Active cyclobenzaprine 10 mg tablet RxNorm: 194977 TAKE ONE TA BLET BY MOUTH THREE TIMES A DAY NEEDED 01/31/2020 03/12/2020 Inactive metformin 500 mg tablet RxNorm: 733029 1 Tablet(s) Oral QD 01/31/2004/08/2020 Inactive gabapentin 300 mg capsule RxNorm: 229330 TAKE ONE CAPSULE BY [facility] TWICE A DAY 01/16/2020 No Stop Date Active potassium chloride ER 20 mEq tablet,extended release RxNorm: 575697 TAKE ONE TABLET BY MOUTH DAILY 01/08/2020 07/05/2020 Active ProAir HFA 90 mcg/actuation aerosol inhaler RxNorm: 823812 INHALE ONE PUFF BY MOUTH EVERY 4 HOURS FOR WHEEZING OR FOR SHORTNESS OF BREATH 01/04/2020 04/10/2020 Inactive metformin 500 mg tablet RxNorm: 899527 1 Tablet(s) Oral QD 01/04/2004/09/2020 Inactive MS Contin 200 mg tablet,extended release RxNorm: 602525 1 Tablet(s) Oral two times a day 01/02/2020 01/31/2020 Inactive Pulmicort 1 mg/2 mL suspension for nebulization RxNorm: 6168 19 USE ONE VIAL VIA NEBULIZER BY MOUTH TWICE A DAY 12/21/2019 No Stop Date Active furosemide 40 mg tablet RxNorm: 233893 TAKE ONE TABLET BY MOUTH EVERY MORNING NEEDED 12/20/2019 03/12/2020 Inactive levothyroxine 25 mcg tablet RxNorm: 864277 TAKE ONE TAB LET BY MOUTH EVERY MORNING 12/20/2019 02/08/2020 Inactive MS Contin 200 mg tablet,extended release RxNorm: 980173 1 Tablet(s) Oral two times a day 12/05/2019 01/01/2020 Inactive Medrol (Aníbal) 4 mg tablets in a dose pack RxNorm: 413668 6 Tablet(s) Oral QD --then as directed 11/30/2019 12/05/2019 Inactive MS Contin 200 mg tablet,extended release RxNorm: 496151 1 Tablet(s) Oral two times a day 11/29/2019 12/04/2019 Inactive cyclobenzaprine 10 mg tablet RxNorm: 221077 TAKE ONE TA BLET BY MOUTH THREE TIMES A DAY NEEDED 11/21/2019 01/30/2020 Inactive MS Contin 200 mg tablet,extended release RxNorm: 231180 1 Tablet(s) Oral two times a day replaces 100mg dose 11/03/2019 11/02/2019 Inactive MS Contin 200 mg tablet,extended release RxNorm: 940191 1 Tablet(s) Oral two times a day replaces 100mg dose 11/03/2019 11/29/2019 Inactive ferrous sulfate 325 mg (65 mg iron) tablet RxNorm: 605524 1 Tab let(s) Oral QD 10/30/2019 No Stop Date Active MS Contin 100 mg tablet,extended release RxNorm: 535070 1 Table t(s) Oral QD 10/30/2019 10/29/2019 Inactive MS Contin 100 mg tablet,extended release RxNorm: 136012 1 Table t(s) Oral QD 10/30/2019 11/02/2019 Inactive pantoprazole 40 mg tablet,delayed release RxNorm: 995413 1 Tabl et(s) Oral QD 10/25/2019 No Stop Date Active Minipress 2 mg capsule RxNorm: 410263 1 Capsule(s) Oral QAM and 3 at bedtime 10/25/2019 No Stop Date Active Lancets, Super Thin RxNorm: 1 Unit Dose Miscellaneous QD 9 11/27/2020 Active Relistor 150 mg tablet RxNorm: 0393729 TAKE THREE TABLETS BY BENOIT TH DAILY 10/25/2019 03/12/2020 Inactive oxycodone 15 mg tablet RxNorm: 9227580 1 Tablet(s) Oral four times a day as needed for pain 10/25/2019 11/28/2019 Inactive metformin 500 mg tablet RxNorm: 943944 1 Tablet(s) Oral QD 10/25/2001/03/2020 Inactive levothyroxine 25 mcg tablet RxNorm: 460252 1 Tablet(s) Oral QAM 02/201912/19/2019 Inactive levothyroxine 25 mcg tablet RxNorm: 602921 1 Tablet(s) Oral QAM 02/201910/24/2019 Inactive MS Contin 100 mg tablet,extended release RxNorm: 714396 1 Tablet(s) Oral two times a day replaces fentanyl 10/25/2019 10/25/2019 Inactive Cymbalta 60 mg capsule,delayed release RxNorm: 394629 1 Capsule (s) Oral QAM 10/25/2019 04/09/2020 Inactive Cymbalta 30 mg capsule,delayed release RxNorm: 417244 1 Capsule (s) Oral QAM 10/25/2019 04/09/2020 Inactive Premarin 0.45 mg tablet RxNorm: 561414 TAKE ONE TABLET BY MOUTH DAILY 10/24/2019 01/30/2020 Inactive Duragesic 100 mcg/hr transdermal patch RxNorm: 533876 2 Application TD Q48H for pain 10/18/2019 10/24/2019 Inactive gabapentin 300 mg capsule RxNorm: 501509 TAKE ONE CAPSULE BY MO UTH TWICE A DAY 10/16/2019 01/15/2020 Inactive cyclobenzaprine 10 mg tablet RxNorm: 806653 TAKE ONE TA BLET BY MOUTH THREE TIMES A DAY NEEDED 09/27/2019 11/20/2019 Inactive Relistor 150 mg tablet RxNorm: 2395808 TAKE THREE TABLETS BY BENOIT TH DAILY 09/25/2019 10/24/2019 Inactive ProAir HFA 90 mcg/actuation aerosol inhaler RxNorm: 220133 INHALE ONE PUFF BY MOUTH EVERY 4 HOURS FOR WHEEZING OR FOR SHORTNESS OF BREATH 09/25/2019 01/03/2020 Inactive furosemide 40 mg tablet RxNorm: 434777 1 Tablet(s) Oral QAM as needed 09/25/2019 09/25/2019 Inactive oxycodone 15 mg tablet RxNorm: 9848425 1 Tablet(s) PO QID as nee ded for pain 09/21/2019 10/24/2019 Inactive Duragesic 100 mcg/hr transdermal patch RxNorm: 648771 2 Application TD Q48H for pain 09/19/2019 10/17/2019 Inactive Daliresp 500 mcg tablet RxNorm: 8717968 1 Tablet(s) Oral QD 019 02/18/2020 Inactive Relistor 150 mg tablet RxNorm: 9679476 TAKE THREE TABLETS BY BENOIT TH DAILY 07/25/2019 07/30/2019 Inactive cyclobenzaprine 10 mg tablet RxNorm: 638426 TAKE ONE TA BLET BY MOUTH THREE TIMES A DAY NEEDED 07/25/2019 09/22/2019 Inactive potassium chloride ER 20 mEq tablet,extended release RxNorm: 045980 TAKE ONE TABLET BY MOUTH DAILY 07/25/2019 01/07/2020 Inactive fluoxetine 40 mg capsule RxNorm: 267536 TAKE ONE CAPSULE BY BENOIT TH EVERY MORNING 07/11/2019 10/24/2019 Inactive Medrol (Aníbal) 4 mg tablets in a dose pack RxNorm: 066726 6 Tablet(s) PO QD --then as directed 07/10/2019 07/15/2019 Inactive omeprazole 40 mg capsule,delayed release RxNorm: 992799 1 Capsule(s) PO QD for stomach TAKE ONE CAPSULE BY MOUTH DAILY 07/10/2019 10/24/2019 Inactive Augmentin 875 mg-125 mg tablet RxNorm: 956509 1 Tablet(s) PO BID 07/16/2019 Inactive Trulicity 0.75 mg/0.5 mL subcutaneous pen injector RxNorm: 1 212707 0.75 Milliliter(s) SQ weekly 07/05/2019 10/24/2019 Inactive Compazine 10 mg tablet RxNorm: 319393 TAKE ONE TABLET B Y MOUTH FOUR TIMES A DAY NEEDED FOR NAUSEA 06/20/2019 07/19/2019 Inactive ProAir HFA 90 mcg/actuation aerosol inhaler RxNorm: 983444 INHALE ONE PUFF BY MOUTH EVERY 4 HOURS FOR WHEEZING OR FOR SHORTNESS OF BREATH 06/20/2019 06/23/2019 Inactive Daliresp 500 mcg tablet RxNorm: 1814855 TAKE ONE TABLET BY MOUTH DAILY 06/12/2019 09/10/2019 Inactive bggdnlvf-jihhipzuj-wqxdgmfrc 3.5 mg/mL-10,000 unit/mL- 1 % ear solution RxNorm: 910996 4 Drop(s) otic (ear) TID to left ear 06/05/2019 10/24/2019 Inac tive furosemide 40 mg tablet RxNorm: 379753 TAKE ONE TABLET BY MOUTH EVERY MORNING 05/26/2019 07/09/2019 Inactive Duragesic 100 mcg/hr transdermal patch RxNorm: 189599 2 Application TD Q48H for pain 05/16/2019 06/14/2019 Inactive oxycodone 15 mg tablet RxNorm: 5020490 1 Tablet(s) PO QID as nee ded for pain 05/10/2019 09/20/2019 Inactive doxycycline hyclate 100 mg capsule RxNorm: 0848317 1 Capsule(s) PO BID 05/03/2019 05/12/2019 Inactive prednisone 20 mg tablet RxNorm: 675731 1 Tablet(s) PO T ID for 3 days then 1 po BID for 3 days then one daily for 3 days 05/03/2019 07/11/2019 Inactiv e Ozempic 0.25 mg or 0.5 mg (2 mg/1.5 mL) subcutaneous p en injector RxNorm: 7235160 0.5 Milligram(s) SQ QW 05/03/2019 07/09/2019 Inactive fluconazole 100 mg tablet RxNorm: 540944 1 Tablet(s) PO QD 06/11/10 1905/07/2019 Inactive Premarin 0.45 mg tablet RxNorm: 697190 TAKE ONE TABLET BY MOUTH DAILY 05/03/2019 10/23/2019 Inactive potassium chloride ER 20 mEq tablet,extended release RxNorm: 448698 1 Tablet(s) PO QD 04/27/2019 07/25/2019 Inactive potassium chloride ER 20 mEq tablet,extended release RxNorm: 545758 1 Tablet(s) PO QD 04/25/2019 04/26/2019 Inactive Compazine 10 mg tablet RxNorm: 455669 1 Tablet(s) PO QID as nee ded for nausea 04/25/2019 05/04/2019 Inactive ProAir HFA 90 mcg/actuation aerosol inhaler RxNorm: 334632 INHALE ONE PUFF BY MOUTH EVERY 4 HOURS FOR WHEEZING OR FOR SHORTNESS OF BREATH 04/12/2019 06/10/2019 Inactive Medrol (Aníbal) 4 mg tablets in a dose pack RxNorm: 262653 6 Tablet(s) PO QD --then as directed 04/11/2019 04/16/2019 Inactive Symbicort 160 mcg-4.5 mcg/actuation HFA aerosol inhaler RxNo rm: 2969072 2 Puff(s) INH BID 04/10/2019 10/06/2019 Inactive levothyroxine 50 mcg tablet RxNorm: 283434 1 Tablet(s) PO QD 201810/24/2019 Inactive gabapentin 300 mg capsule RxNorm: 943830 1 Capsule(s) PO BID 201810/02/2019 Inactive Symbicort 160 mcg-4.5 mcg/actuation HFA aerosol inhaler RxNo rm: 1434265 2 Puff(s) INH BID 04/06/2019 04/09/2019 Inactive oxycodone 15 mg tablet RxNorm: 2953447 1 Tablet(s) PO QID as nee ded for pain 04/05/2019 05/09/2019 Inactive levothyroxine 50 mcg tablet RxNorm: 631886 1 Tablet(s) PO QD 201804/09/2019 Inactive furosemide 40 mg tablet RxNorm: 382710 TAKE ONE TABLET BY MOUTH EVERY MORNING 03/21/2019 04/19/2019 Inactive levothyroxine 50 mcg tablet RxNorm: 896292 TAKE ONE TABLET BY M OUTH DAILY 03/21/2019 03/27/2019 Inactive Duragesic 100 mcg/hr transdermal patch RxNorm: 785281 2 Application TD Q48H for pain 03/13/2019 04/11/2019 Inactive oxycodone 15 mg tablet RxNorm: 6849693 1 Tablet(s) PO QID as nee ded for pain 03/06/2019 04/04/2019 Inactive Relistor 150 mg tablet RxNorm: 6124580 3 Tablet(s) PO QD 02/28/2019 0 05/28/2019 Inactive cyclobenzaprine 10 mg tablet RxNorm: 202907 1 Tablet(s) PO TID as needed 02/28/2019 05/28/2019 Inactive phentermine 37.5 mg tablet RxNorm: 312597 1 Tablet(s) PO QAM 201803/15/2019 Inactive Duragesic 100 mcg/hr transdermal patch RxNorm: 743580 2 Application TD Q48H for pain 02/09/2019 03/10/2019 Inactive Daliresp 500 mcg tablet RxNorm: 7021400 TAKE ONE TABLET BY MOUTH DAILY 01/31/2019 05/30/2019 Inactive Premarin 0.45 mg tablet RxNorm: 869577 1 Tablet(s) PO QD 01/31/2019 0 04/30/2019 Inactive fluoxetine 40 mg capsule RxNorm: 013587 Capsule(s) TAKE ONE CAPSULE BY MOUTH EVERY MORNING 01/31/2019 04/30/2019 Inactive levothyroxine 50 mcg tablet RxNorm: 992707 1 Tablet(s) PO QD 201804/10/2019 Inactive follow up in 3 weeks levothyroxine 50 mcg tablet RxNorm: 676262 1 Tablet(s) PO QD 201801/25/2019 Inactive follow up in 3 weeks potassium chloride ER 20 mEq tablet,extended release RxNorm: 036242 2 Tablet(s) PO BID 01/23/2019 01/08/2020 Inactive Synthroid 50 mcg tablet RxNorm: 913943 TAKE ONE TABLET BY MOUTH DAILY 01/16/2019 10/24/2019 Inactive potassium chloride ER 20 mEq tablet,extended release RxNorm: 645124 2 Tablet(s) PO BID 01/04/2019 01/22/2019 Inactive ProAir HFA 90 mcg/actuation aerosol inhaler RxNorm: 438158 INHALE ONE PUFF BY MOUTH EVERY 4 HOURS FOR WHEEZING OR SHORTNESS OF BREATH 01/04/201902/20 Inactive Request already responded to by other me ans (e.g. phone or fax) ProAir HFA 90 mcg/actuation aerosol inhaler RxNorm: 6974531 INHALE ONE PUFF BY MOUTH EVERY 4 HOURS FOR WHEEZING OR SHORTNESS OF BREATH 01/02/201912/23 Inactive gabapentin 300 mg capsule RxNorm: 716320 TAKE ONE CAPSULE BY MO UTH TWICE A DAY 12/30/2018 04/06/2019 Inactive furosemide 40 mg tablet RxNorm: 506086 1 Tablet(s) PO QAM 12/26/2018 02/23/2019 Inactive Compazine 10 mg tablet RxNorm: 413527 1 Tablet(s) PO QID as nee ded for nausea 12/07/2018 12/16/2018 Inactive metolazone 2.5 mg tablet RxNorm: 887395 TAKE ONE TABLET BY MOUT H EVERY MORNING 12/05/2018 01/03/2019 Inactive metformin ER 500 mg tablet,extended release 24 hr RxNorm: 86 0975 TAKE ONE TABLET BY MOUTH DAILY 12/05/2018 01/31/2020 Inactive Synthroid 50 mcg tablet RxNorm: 088139 1 Tablet(s) PO QD 11/25/2018 0 01/03/2019 Inactive DC any other synthroid strengths. Should be 50mcg only cyclobenzaprine 10 mg tablet RxNorm: 703376 TAKE ONE TA BLET BY MOUTH THREE TIMES A DAY NEEDED 11/09/2018 02/06/2019 Inactive metolazone 2.5 mg tablet RxNorm: 426878 1 Tablet(s) PO QAM repl aces 5mg dose 11/02/2018 12/01/2018 Inactive potassium chloride ER 20 mEq tablet,extended release RxNorm: 549773 2 Tablet(s) PO QD 2018 01/02/2019 Inactive Compazine 10 mg tablet RxNorm: 648422 1 Tablet(s) PO QID as nee ded for nausea 10/18/2018 12/07/2018 Inactive furosemide 40 mg tablet RxNorm: 175778 1 Tablet(s) PO QAM 10/12/2018 12/10/2018 Inactive ondansetron 8 mg disintegrating tablet RxNorm: 109539 1 Tablet(s) PO Q6H as needed 10/11/2018 10/17/2018 Inactive scopolamine 1 mg over 3 days transdermal patch RxNorm: 16072 2 1 Application TD behind ear. Take off after three days 10/11/2018 01/02/2019 Inactive furosemide 40 mg tablet RxNorm: 463960 1 Tablet(s) PO QAM 10/10/2018 12/26/2018 Inactive metolazone 5 mg tablet RxNorm: 640063 1 Tablet(s) PO QAM 10/06/2018 1 01/03/2018 Inactive metolazone 5 mg tablet RxNorm: 529819 1 Tablet(s) PO QAM 10/06/2018 1 12/05/2017 Inactive Xtampza ER 36 mg capsule sprinkle RxNorm: 3637891 1 Capsule(s) P O BID 10/05/2018 01/02/2019 Inactive Xtampza ER 36 mg capsule sprinkle RxNorm: 1782406 1 Capsule(s) P O BID 10/05/2018 02/12/2019 Inactive omeprazole 40 mg capsule,delayed release RxNorm: 244661 TAKE ONE CAPSULE BY MOUTH DAILY 10/03/2018 12/31/2018 Inactive Duragesic 100 mcg/hr transdermal patch RxNorm: 894779 2 Application TD Q48H for pain 09/30/2018 10/29/2018 Inactive Synthroid 50 mcg tablet RxNorm: 949619 1 Tablet(s) PO QD 09/29/2018 0 11/25/2018 Inactive DC any other synthroid strengths. Should be 50mcg only Synthroid 50 mcg tablet RxNorm: 272996 1 Tablet(s) PO QD 09/29/2018 1 11/28/2017 Inactive furosemide 40 mg tablet RxNorm: 110167 2 Tablet(s) PO Q AM for 1 week then every other day for 2 weeks 09/27/2018 10/12/2018 Inactive fluoxetine 40 mg capsule RxNorm: 378007 2 Capsule(s) PO QD 09/27/20 18 10/17/2018 Inactive potassium chloride ER 20 mEq tablet,extended release RxNorm: 728021 2 Tablet(s) PO QD for 1 week then every other day for 2 weeks 09/27/2018 2018 Inactive ProAir HFA 90 mcg/actuation aerosol inhaler RxNorm: 0440209 INHALE ONE PUFF BY MOUTH EVERY 4 HOURS FOR WHEEZING OR SHORTNESS OF BREATH 09/26/201811/23 Inactive Synthroid 75 mcg tablet RxNorm: 049986 1 Tablet(s) PO QD 09/09/2018 1 Inactive Synthroid 75 mcg tablet RxNorm: 597145 1 Tablet(s) PO QD 09/09/2018 1 11/28/2017 Inactive furosemide 40 mg tablet RxNorm: 199806 1 Tablet(s) PO QD 09/06/2018 1 Inactive potassium chloride ER 20 mEq tablet,extended release RxNorm: 482748 1 Tablet(s) PO QD 09/06/2018 09/19/2018 Inactive Duragesic 100 mcg/hr transdermal patch RxNorm: 381221 2 Application TD Q48H for pain 08/30/2018 09/28/2018 Inactive gabapentin 300 mg capsule RxNorm: 818072 TAKE ONE CAPSULE BY MO RUST TWICE A DAY 08/23/2018 12/20/2018 Inactive Daliresp 500 mcg tablet RxNorm: 3163211 TAKE ONE TABLET BY MOUTH DAILY 08/23/2018 01/19/2019 Inactive Pulmicort 1 mg/2 mL suspension for nebulization RxNorm: 6168 19 USE ONE VIAL VIA NEBULIZER BY MOUTH TWICE A DAY 08/23/2018 07/11/2019 Inactive Synthroid 88 mcg tablet RxNorm: 617648 1 Tablet(s) PO QD 08/19/2018 1 Inactive Medrol (Aníbal) 4 mg tablets in a dose pack RxNorm: 740102 Tablet(s) PO take as directed 08/16/2018 09/05/2018 Inactive Relistor 150 mg tablet RxNorm: 1572864 3 Tablet(s) PO QD 08/16/2018 1 Inactive Zithromax Z-Aníbal 250 mg tablet RxNorm: 394342 Tablet(s) PO take as directed 08/16/2018 09/05/2018 Inactive cyclobenzaprine 10 mg tablet RxNorm: 943630 1 Tablet(s) PO TID as needed 08/16/2018 11/08/2018 Inactive Synthroid 88 mcg tablet RxNorm: 880709 1 Tablet(s) PO Q D NEEDS UPDATED LABS BEFORE FURTHER REFILLS 08/08/2018 08/19/2018 Inactive Premarin 0.45 mg tablet RxNorm: 348258 1 Tablet(s) PO QD 08/03/2018 0 01/31/2019 Inactive fluoxetine 20 mg capsule RxNorm: 845588 TAKE ONE CAPSULE BY BENOIT TH DAILY 08/03/2018 09/26/2018 Inactive Xtampza ER 36 mg capsule sprinkle RxNorm: 7496455 1 Capsule(s) P O BID 08/03/2018 09/01/2018 Inactive metformin ER 500 mg tablet,extended release 24 hr RxNorm: 86 0975 1 Tablet(s) PO QD 08/03/2018 10/31/2018 Inactive Symbicort 160 mcg-4.5 mcg/actuation HFA aerosol inhaler RxNo rm: 1301796 2 Puff(s) INH BID 08/03/2018 01/29/2019 Inactive Duragesic 100 mcg/hr transdermal patch RxNorm: 279874 2 Application TD Q48H for pain 07/29/2018 08/27/2018 Inactive ProAir HFA 90 mcg/actuation aerosol inhaler RxNorm: 453098 INHALE TWO PUFFS BY MOUTH EVERY 4 HOURS FOR WHEEZING OR SHORTNESS OF BREATH 07/27/201802/2018 Inactive Relistor 150 mg tablet RxNorm: 7727079 3 Tablet(s) PO QD 07/20/2018 0 08/15/2018 Inactive metformin ER 500 mg tablet,extended release 24 hr RxNorm: 86 0975 TAKE ONE TABLET BY MOUTH DAILY 07/08/2018 08/02/2018 Inactive fluoxetine 40 mg capsule RxNorm: 255787 TAKE ONE CAPSULE BY BENOIT TH EVERY MORNING 07/08/2018 10/05/2018 Inactive Xtampza ER 18 mg capsule sprinkle RxNorm: 8420594 1 Capsule(s) P O BID 07/08/2018 08/02/2018 Inactive Relistor 150 mg tablet RxNorm: 7763034 3 Tablet(s) PO QD 07/08/2018 0 07/12/2018 Inactive Synthroid 88 mcg tablet RxNorm: 683301 1 Tablet(s) PO Q D NEEDS UPDATED LABS BEFORE FURTHER REFILLS 06/23/2018 07/07/2018 Inactive fluoxetine 40 mg capsule RxNorm: 282807 TAKE ONE CAPSULE BY BENOIT TH EVERY MORNING 06/15/2018 09/26/2018 Inactive orphenadrine citrate ER 100 mg tablet,extended release RxNor m: 807734 TAKE ONE TABLET BY MOUTH TWICE A DAY FOR MUSCLE SPASM 06/15/2018 08/15/2018 Renu ctive Duragesic 100 mcg/hr transdermal patch RxNorm: 132944 2 Application TD Q48H for pain 05/30/2018 06/28/2018 Inactive ProAir HFA 90 mcg/actuation aerosol inhaler RxNorm: 491541 INHALE TWO PUFFS BY MOUTH EVERY 4 HOURS FOR WHEEZING OR SHORTNESS OF BREATH 05/19/201803/2018 Inactive Chantix Continuing Month Box 1 mg tablet RxNorm: 630932 TAKE ONE TABLET BY MOUTH TWICE A DAY 05/19/2018 08/15/2018 Inactive oxycodone 10 mg tablet RxNorm: 8450502 1-2 Tablet(s) PO QID as n eeded for pain 05/19/2018 07/07/2018 Inactive gabapentin 300 mg capsule RxNorm: 351702 TAKE ONE CAPSULE BY [facility] TWICE A DAY 05/18/2018 07/16/2018 Inactive ProAir HFA 90 mcg/actuation aerosol inhaler RxNorm: 180370 INHALE TWO PUFFS BY MOUTH EVERY 4 HOURS FOR WHEEZING OR SHORTNESS OF BREATH 05/04/201804/23 Inactive Augmentin 500 mg-125 mg tablet RxNorm: 831061 1 Tablet(s) PO BID 05/03/2018 Inactive oxycodone 10 mg tablet RxNorm: 1018785 1-2 Tablet(s) PO QID as n eeded for pain 04/21/2018 05/18/2018 Inactive Synthroid 88 mcg tablet RxNorm: 422846 1 Tablet(s) PO QD 04/15/2018 0 08/08/2018 Inactive Symbicort 160 mcg-4.5 mcg/actuation HFA aerosol inhaler RxNo rm: 6588784 2 Puff(s) INH BID 04/15/2018 04/10/2019 Inactive Premarin 0.45 mg tablet RxNorm: 033674 1 Tablet(s) PO QD 04/15/2018 0 08/03/2018 Inactive ProAir HFA 90 mcg/actuation aerosol inhaler RxNorm: 474827 2 Puff(s) INH Q4H prn for wheezing or shortness of breath 04/15/2018 05/03/2018 Inactive metformin ER 500 mg tablet,extended release 24 hr RxNorm: 86 0975 1 Tablet(s) PO QD 04/11/2018 07/07/2018 Inactive omeprazole 40 mg capsule,delayed release RxNorm: 238451 TAKE ONE CAPSULE BY MOUTH DAILY 04/10/2018 06/08/2018 Inactive Synthroid 88 mcg tablet RxNorm: 741229 1 Tablet(s) PO QD 04/04/2018 0 04/14/2018 Inactive Synthroid 88 mcg tablet RxNorm: 598509 1 Tablet(s) PO QD 04/04/2018 0 04/03/2018 Inactive orphenadrine citrate ER 100 mg tablet,extended release RxNor m: 625061 1 Tablet(s) PO BID for muscle spasm 04/04/2018 05/03/2018 Inactive metformin ER 500 mg tablet,extended release 24 hr RxNorm: 86 0975 1 Tablet(s) PO QD NEEDS UPDATED LABS 03/31/2018 04/11/2018 Inactive doxycycline hyclate 100 mg capsule RxNorm: 6534056 1 Capsule(s) PO BID 03/31/2018 04/09/2018 Inactive prednisone 20 mg tablet RxNorm: 202536 3 Tablet(s) PO T ID for 3 days then 1 po BID for 3 days then one daily for 3 days 03/31/2018 07/06/2018 Inactiv e Chantix Continuing Month Box 1 mg tablet RxNorm: 315584 TAKE ONE TABLET BY MOUTH TWICE A DAY 03/25/2018 03/30/2018 Inactive oxycodone 10 mg tablet RxNorm: 7773796 1-2 Tablet(s) PO QID as n eeded for pain 03/21/2018 04/20/2018 Inactive Daliresp 500 mcg tablet RxNorm: 0650512 1 Tablet(s) PO QD 03/15/2018 08/22/2018 Inactive metformin ER 500 mg tablet,extended release 24 hr RxNorm: 86 0975 1 Tablet(s) PO QD NEEDS UPDATED LABS 03/14/2018 03/31/2018 Inactive nystatin 100,000 unit/mL oral suspension RxNorm: 775580 5 Chio liter(s) PO QID 03/02/2018 03/15/2018 Inactive nystatin 100,000 unit/mL oral suspension RxNorm: 626926 5 Chio liter(s) PO QID 03/02/2018 03/01/2018 Inactive oxycodone 10 mg tablet RxNorm: 3453800 1-2 Tablet(s) PO QID as n eeded for pain 02/16/2018 03/20/2018 Inactive fluoxetine 20 mg capsule RxNorm: 963800 1 Capsule(s) PO QD 02/15/20 18 08/02/2018 Inactive metformin ER 500 mg tablet,extended release 24 hr RxNorm: 86 0975 1 Tablet(s) PO QD Needs updated labs 02/14/2018 03/14/2018 Inactive cefdinir 300 mg capsule RxNorm: 605698 1 Capsule(s) PO BID 01/27/20 18 02/04/2018 Inactive orphenadrine citrate ER 100 mg tablet,extended release RxNor m: 931716 1 Tablet(s) PO BID for muscle spasm 01/26/2018 04/04/2018 Inactive gabapentin 300 mg capsule RxNorm: 090932 1 Capsule(s) PO BID 201704/17/2018 Inactive oxycodone 10 mg tablet RxNorm: 7838491 1-2 Tablet(s) PO QID as n eeded for pain 01/17/2018 02/15/2018 Inactive Duragesic 100 mcg/hr transdermal patch RxNorm: 173649 2 Application TD Q48H for pain 01/17/2018 02/15/2018 Inactive gabapentin 300 mg capsule RxNorm: 596223 TAKE ONE CAPSULE BY MO UTH TWICE A DAY 12/20/2017 01/18/2018 Inactive fluoxetine 40 mg capsule RxNorm: 509951 TAKE ONE CAPSULE BY BENOIT TH EVERY MORNING 12/15/2017 03/14/2018 Inactive OneTouch Ultra Test strips RxNorm: TEST DAILY 11/04/2017 02/01/2018 Inactive gabapentin 300 mg capsule RxNorm: 928162 1 Capsule(s) P O TID replaces BID dosing 10/26/2017 02/22/2018 Inactive oxycodone 10 mg tablet RxNorm: 7697811 1-2 Tablet(s) PO QID as n eeded for pain 10/18/2017 01/16/2018 Inactive Duragesic 100 mcg/hr transdermal patch RxNorm: 589478 2 Application TD Q48H for pain 10/18/2017 11/16/2017 Inactive gabapentin 300 mg capsule RxNorm: 057167 1 Capsule(s) PO BID 201610/25/2017 Inactive Abilify 5 mg tablet RxNorm: 308935 1 Tablet(s) PO QAM 09/23/201702/2017 Inactive gabapentin 300 mg capsule RxNorm: 898301 1 Capsule(s) PO BID 201610/17/2017 Inactive oxycodone 10 mg tablet RxNorm: 6530675 1-2 Tablet(s) PO QID as n eeded for pain 09/15/2017 10/17/2017 Inactive Duragesic 100 mcg/hr transdermal patch RxNorm: 138173 2 Application TD Q48H for pain 09/15/2017 10/14/2017 Inactive Duragesic 100 mcg/hr transdermal patch RxNorm: 869038 2 Application TD Q48H for pain 09/15/2017 10/24/2019 Inactive oxycodone 10 mg tablet RxNorm: 3866227 1-2 Tablet(s) PO QID as n eeded for pain 09/15/2017 08/15/2018 Inactive Daliresp 500 mcg tablet RxNorm: 0213386 1 Tablet(s) PO QD 09/06/2017 03/15/2018 Inactive Ventolin HFA 90 mcg/actuation aerosol inhaler RxNorm: 329704 2 Puff(s) INH Q4H as needed 09/02/2017 05/19/2018 Inactive oxycodone 10 mg tablet RxNorm: 5345257 1-2 Tablet(s) PO QID as n eeded for pain 08/17/2017 09/14/2017 Inactive Duragesic 100 mcg/hr transdermal patch RxNorm: 499477 2 Application TD Q48H for pain 08/17/2017 09/14/2017 Inactive fluoxetine 40 mg capsule RxNorm: 684546 Capsule(s) TAKE ONE CAPSULE BY MOUTH EVERY MORNING 08/17/2017 12/14/2017 Inactive Pulmicort 1 mg/2 mL suspension for nebulization RxNorm: 6168 19 1 Unit Dose INH BID Dx: COPD (J44.9) 08/16/2017 08/22/2018 Inactive gabapentin 300 mg capsule RxNorm: 416988 1 Capsule(s) PO QHS 201610/18/2017 Inactive fluoxetine 20 mg capsule RxNorm: 759755 1 Capsule(s) PO QD 08/12/20 17 02/14/2018 Inactive Abilify 2 mg tablet RxNorm: 522359 1 Tablet(s) PO QD TA KE ONE TABLET BY MOUTH DAILY 08/12/2017 10/25/2017 Inactive metformin ER 500 mg tablet,extended release 24 hr RxNorm: 86 0975 1 Tablet(s) PO QD 08/10/2017 02/14/2018 Inactive Synthroid 112 mcg tablet RxNorm: 907207 1 Tablet(s) PO QD 08/10/2017 04/15/2018 Inactive oxycodone 10 mg tablet RxNorm: 3872287 1-2 Tablet(s) PO QID as n eeded for pain 07/19/2017 08/16/2017 Inactive Duragesic 100 mcg/hr transdermal patch RxNorm: 659812 2 Application TD Q48H for pain 07/19/2017 08/16/2017 Inactive Ventolin HFA 90 mcg/actuation aerosol inhaler RxNorm: 287049 2 Puff(s) INH Q4H as needed 07/12/2017 09/02/2017 Inactive Abilify 2 mg tablet RxNorm: 647331 1 Tablet(s) PO QD TA KE ONE TABLET BY MOUTH DAILY 07/06/2017 08/11/2017 Inactive gabapentin 800 mg tablet RxNorm: 343666 1 Tablet(s) PO TID 06/22/20 17 07/05/2017 Inactive Chantix Starting Month Box 0.5 mg (11)-1 mg (42) table ts in dose pack RxNorm: 446338 TAKE BY MOUTH INSTRUCTED - PER PACKAGE INSTRUCTIONS 06/0707/04/2017 Inactive Ventolin HFA 90 mcg/actuation aerosol inhaler RxNorm: 103656 2 Puff(s) INH Q4H as needed 05/26/2017 07/12/2017 Inactive Duragesic 100 mcg/hr transdermal patch RxNorm: 351268 2 Application TD Q48H for pain 05/19/2017 06/17/2017 Inactive oxycodone 10 mg tablet RxNorm: 1586728 1-2 Tablet(s) PO QID as n eeded for pain 05/19/2017 07/18/2017 Inactive Abilify 2 mg tablet RxNorm: 406353 TAKE ONE TABLET BY MOUTH DAILY 0 05/10/2017 07/05/2017 Inactive Synthroid 112 mcg tablet RxNorm: 226839 1 Tablet(s) PO QD 05/06/2017 08/10/2017 Inactive metformin ER 500 mg tablet,extended release 24 hr RxNorm: 86 0975 1 Tablet(s) PO QD 05/06/2017 08/10/2017 Inactive Topamax 100 mg tablet RxNorm: 038381 1 Tablet(s) PO QHS 05/06/2017 Inactive Premarin 0.45 mg tablet RxNorm: 900874 1 Tablet(s) PO QD 05/06/2017 0 04/15/2018 Inactive orphenadrine citrate ER 100 mg tablet,extended release RxNor m: 843192 1 Tablet(s) PO TID for muscle spasm--replaces methocarbamol 04/29/2017 Inactive oxycodone 10 mg tablet RxNorm: 4597931 1-2 Tablet(s) PO QID as n eeded for pain 04/21/2017 05/18/2017 Inactive Duragesic 100 mcg/hr transdermal patch RxNorm: 983680 2 Application TD Q48H for pain 04/21/2017 05/18/2017 Inactive fluoxetine 40 mg capsule RxNorm: 341527 Capsule(s) TAKE ONE CAPSULE BY MOUTH EVERY MORNING 04/20/2017 08/17/2017 Inactive Ventolin HFA 90 mcg/actuation aerosol inhaler RxNorm: 435266 2 Puff(s) INH Q4H as needed 04/05/2017 05/26/2017 Inactive Symbicort 160 mcg-4.5 mcg/actuation HFA aerosol inhaler RxNo rm: 7377018 2 Puff(s) INH BID 03/30/2017 04/15/2018 Inactive Spiriva with HandiHaler 18 mcg and inhalation capsules RxNor m: 770376 1 Capsule(s) INH QD USING HANDIHALER 03/30/2017 02/12/2019 Inactive Duragesic 100 mcg/hr transdermal patch RxNorm: 371310 2 Application TD Q48H for pain 03/18/2017 04/16/2017 Inactive oxycodone 10 mg tablet RxNorm: 8997098 1-2 Tablet(s) PO QID as n eeded for pain 03/18/2017 04/20/2017 Inactive metformin ER 500 mg tablet,extended release 24 hr RxNorm: 86 0975 Tablet(s) TAKE ONE TABLET BY MOUTH DAILY 03/01/2017 05/06/2017 Inactive Premarin 0.45 mg tablet RxNorm: 570378 Tablet(s) TAKE ONE TABLE T BY MOUTH DAILY 03/01/2017 05/06/2017 Inactive Synthroid 112 mcg tablet RxNorm: 072670 Tablet(s) TAKE ONE TABLET BY MOUTH DAILY 03/01/2017 05/06/2017 Inactive Daliresp 500 mcg tablet RxNorm: 9189510 1 Tablet(s) PO QD 03/01/2017 09/06/2017 Inactive 16.2 mg-0.1037 mg-0.0194 mg tablet RxNorm: 2279953 Tablet(s) PO PRN for gas and cramping 02/23/2017 04/28/2017 Inactive TAKE TWO TABLET S BY MOUTH THREE TIMES A DAY NEEDED FOR GAS AND CRAMPING gabapentin 800 mg tablet RxNorm: 134597 1 Tablet(s) PO TID repl aces 600mg 02/23/2017 04/28/2017 Inactive Duragesic 100 mcg/hr transdermal patch RxNorm: 663070 2 Application TD Q48H for pain 02/17/2017 03/17/2017 Inactive fluoxetine 20 mg capsule RxNorm: 533403 1 Capsule(s) PO QD 02/18/20 17 08/12/2017 Inactive oxycodone 20 mg tablet RxNorm: 0552757 1 Tablet(s) PO QID as nee ded for pain 02/17/2017 03/17/2017 Inactive Ventolin HFA 90 mcg/actuation aerosol inhaler RxNorm: 838725 INHALE TWO PUFFS BY MOUTH EVERY 4 HOURS NEEDED 02/15/2017 04/05/2017 Inactive Silvadene 1 % topical cream RxNorm: 550650 1 Application TOP BI D to burn area 02/01/2017 09/22/2017 Inactive Topamax 100 mg tablet RxNorm: 972466 TAKE ONE TABLET BY MOUTH EVERY NIGHT AT BEDTIME 01/29/2017 05/06/2017 Inactive Chantix Starting Month Box 0.5 mg (11)-1 mg (42) table ts in dose pack RxNorm: 619438 Tablet(s) PO as directed 01/29/2017 06/01/2017 Inactive Abilify 2 mg tablet RxNorm: 239676 TAKE ONE TABLET BY MOUTH DAILY 0 01/26/2017 04/25/2017 Inactive Chantix Starting Month Box 0.5 mg (11)-1 mg (42) table ts in dose pack RxNorm: 110064 Tablet(s) PO as directed 01/20/2017 01/28/2017 Inactive gabapentin 600 mg tablet RxNorm: 809345 1 Tablet(s) PO TID 01/21/20 17 02/22/2017 Inactive Chantix Continuing Month Box 1 mg tablet RxNorm: 184461 1 Table t(s) PO BID 12/31/2016 06/01/2017 Inactive Spiriva with HandiHaler 18 mcg and inhalation capsules RxNor m: 377748 INHALE THE ENTIRE CONTENTS OF 1 CAPSULE ONCE A DAY USING HANDIHALER 12/31/201607/2017 Inactive Synthroid 112 mcg tablet RxNorm: 752057 TAKE ONE TABLET BY MOUT H DAILY 12/30/2016 03/01/2017 Inactive metformin ER 500 mg tablet,extended release 24 hr RxNorm: 86 0975 TAKE ONE TABLET BY MOUTH DAILY 12/30/2016 03/01/2017 Inactive Premarin 0.45 mg tablet RxNorm: 991824 TAKE ONE TABLET BY MOUTH DAILY 12/30/2016 03/01/2017 Inactive omeprazole 40 mg capsule,delayed release RxNorm: 150180 TAKE ONE CAPSULE BY MOUTH DAILY 12/30/2016 01/25/2018 Inactive Ventolin HFA 90 mcg/actuation aerosol inhaler RxNorm: 226364 INHALE TWO PUFFS BY MOUTH EVERY 4 HOURS NEEDED 12/28/2016 02/13/2017 Inactive fluoxetine 40 mg capsule RxNorm: 835750 TAKE ONE CAPSULE BY BENOIT TH EVERY MORNING 12/15/2016 04/20/2017 Inactive Chantix Continuing Month Box 1 mg tablet RxNorm: 269131 TAKE ONE TABLET BY MOUTH TWICE A DAY 12/04/2016 12/31/2016 Inactive doxycycline hyclate 100 mg capsule RxNorm: 4386763 1 Capsule(s) PO BID 12/01/2016 12/07/2016 Inactive Levaquin 750 mg tablet RxNorm: 910389 1 Tablet(s) PO QD 12/01/2016 Inactive Abilify 2 mg tablet RxNorm: 218445 TAKE ONE TABLET BY MOUTH DAILY 0 11/25/2016 11/30/2016 Inactive Ventolin HFA 90 mcg/actuation aerosol inhaler RxNorm: 234153 INHALE TWO PUFFS BY MOUTH EVERY 4 HOURS NEEDED 11/02/2016 12/19/2016 Inactive Chantix Continuing Month Box 1 mg tablet RxNorm: 154300 Tablet(s) PO as directed 10/30/2016 12/03/2016 Inactive Symbicort 160 mcg-4.5 mcg/actuation HFA aerosol inhaler RxNo rm: 7378837 INHALE TWO PUFFS TWO TIMES A DAY 10/30/2016 03/30/2017 Inactive Abilify 2 mg tablet RxNorm: 425323 1 Tablet(s) PO QD 10/27/201611/24 Inactive amoxicillin 500 mg capsule RxNorm: 190563 1 Capsule(s) PO TID 10/1410/23/2016 Inactive amoxicillin 500 mg capsule RxNorm: 743941 1 Capsule(s) PO TID 10/1410/13/2016 Inactive Synthroid 112 mcg tablet RxNorm: 766388 TAKE ONE TABLET BY MOUT H DAILY 09/28/2016 12/29/2016 Inactive Topamax 100 mg tablet RxNorm: 561183 TAKE ONE TABLET BY MOUTH EVERY NIGHT AT BEDTIME 09/28/2016 01/28/2017 Inactive Premarin 0.45 mg tablet RxNorm: 616616 TAKE ONE TABLET BY MOUTH DAILY 09/28/2016 12/29/2016 Inactive metformin ER 500 mg tablet,extended release 24 hr RxNorm: 86 0975 TAKE ONE TABLET BY MOUTH DAILY 09/28/2016 12/29/2016 Inactive Ventolin HFA 90 mcg/actuation aerosol inhaler RxNorm: 945578 INHALE TWO PUFFS BY MOUTH EVERY 4 HOURS NEEDED 09/22/2016 10/23/2016 Inactive Pulmicort 1 mg/2 mL suspension for nebulization RxNorm: 6168 19 1 Unit Dose INH BID Dx: COPD (J44.9) 09/10/2016 08/16/2017 Inactive Pulmicort 1 mg/2 mL suspension for nebulization RxNorm: 6168 19 1 Unit Dose INH BID 09/10/2016 09/09/2016 Inactive Brovana 15 mcg/2 mL solution for nebulization RxNorm: 328297 1 Unit Dose INH BID Dx: COPD (J44.9) 09/10/2016 01/25/2018 Inactive Brovana 15 mcg/2 mL solution for nebulization RxNorm: 714657 1 Unit Dose INH BID 09/10/2016 09/09/2016 Inactive ipratropium-albuterol 0.5 mg-3 mg(2.5 mg base)/3 mL ne bulization soln RxNorm: 4389490 1 Unit Dose INH Q4H as needed Dx: COPD (J44.9) 09/10/2016 0 02/12/2019 Inactive orphenadrine citrate ER 100 mg tablet,extended release RxNor m: 721497 1 Tablet(s) PO BID for muscle spasm--replaces methocarbamol 09/09/2016 Inactive Chantix Continuing Month Box 1 mg tablet RxNorm: 404386 Tablet(s) PO as directed 09/09/2016 10/30/2016 Inactive orphenadrine citrate ER 100 mg tablet,extended release RxNor m: 196093 1 Tablet(s) PO BID for muscle spasm 09/09/2016 09/08/2016 Inactive Spiriva with HandiHaler 18 mcg and inhalation capsules RxNor m: 309730 INHALE THE ENTIRE CONTENTS OF 1 CAPSULE ONCE A DAY USING HANDIHALER 09/01/201605/2017 Inactive Daliresp 500 mcg tablet RxNorm: 5839295 1 Tablet(s) PO QD 08/27/2016 03/01/2017 Inactive prednisone 20 mg tablet RxNorm: 137898 3 Tablet(s) PO T ID for 3 days then 1 po BID for 3 days then one daily for 3 days 08/26/2016 04/28/2017 Inactiv e Wellbutrin XL 300 mg 24 hr tablet, extended release RxNorm: 179584 TAKE ONE TABLET BY MOUTH EVERY MORNING 07/29/2016 10/26/2016 Inactive gabapentin 600 mg tablet RxNorm: 220342 1 Tablet(s) PO BID 06/26/20 16 12/22/2016 Inactive fluoxetine 40 mg capsule RxNorm: 802302 TAKE ONE CAPSULE BY BENOIT TH EVERY MORNING 06/24/2016 11/20/2016 Inactive Duragesic 100 mcg/hr transdermal patch RxNorm: 253142 2 Application TD Q48H for pain 06/05/2016 07/04/2016 Inactive oxycodone 10 mg tablet RxNorm: 0995187 1-2 Tablet(s) PO QID as n eeded for pain 06/05/2016 03/17/2017 Inactive Belladonna-Phenobarbital 48 mg tablet,extended release RxNor m: 2 Tablet(s) PO TID 06/05/2016 01/19/2017 Inactive Premarin 0.45 mg tablet RxNorm: 805825 TAKE ONE TABLET BY MOUTH DAILY 05/27/2016 09/23/2016 Inactive Topamax 100 mg tablet RxNorm: 848920 TAKE ONE TABLET BY MOUTH EVERY NIGHT AT BEDTIME 05/27/2016 09/27/2016 Inactive Synthroid 112 mcg tablet RxNorm: 919130 TAKE ONE TABLET BY MOUT H DAILY 05/27/2016 09/23/2016 Inactive metformin ER 500 mg tablet,extended release 24 hr RxNorm: 86 0975 TAKE ONE TABLET BY MOUTH DAILY 05/27/2016 09/23/2016 Inactive Symbicort 160 mcg-4.5 mcg/actuation HFA aerosol inhaler RxNo rm: 1920603 INHALE TWO PUFFS TWO TIMES A DAY 05/27/2016 10/23/2016 Inactive Ventolin HFA 90 mcg/actuation aerosol inhaler RxNorm: 549217 INHALE TWO PUFFS BY MOUTH EVERY 4 HOURS NEEDED 05/21/2016 07/07/2016 Inactive omeprazole 40 mg capsule,delayed release RxNorm: 177443 1 Capsu le(s) PO QD 05/06/2016 08/03/2016 Inactive metformin ER 500 mg tablet,extended release 24 hr RxNorm: 86 0975 TAKE ONE TABLET BY MOUTH DAILY 04/23/2016 05/22/2016 Inactive methocarbamol 750 mg tablet RxNorm: 082490 2 Tablet(s) PO TID as needed for muscle spasm 04/23/2016 09/08/2016 Inactive Synthroid 112 mcg tablet RxNorm: 888210 TAKE ONE TABLET BY MOUT H DAILY 04/23/2016 05/22/2016 Inactive Spiriva with HandiHaler 18 mcg and inhalation capsules RxNor m: 147547 INHALE THE ENTIRE CONTENTS OF 1 CAPSULE ONCE A DAY USING HANDIHALER 04/09/201608/2016 Inactive Diflucan 100 mg tablet RxNorm: 784108 1 Tablet(s) PO QD 04/08/2016 Inactive doxycycline hyclate 100 mg capsule RxNorm: 0912766 1 Capsule(s) PO BID 04/08/2016 04/17/2016 Inactive doxycycline hyclate 100 mg capsule RxNorm: 4384666 1 Capsule(s) PO BID 04/08/2016 04/07/2016 Inactive Diflucan 100 mg tablet RxNorm: 534831 1 Tablet(s) PO QD 04/08/2016 Inactive ondansetron HCl 4 mg tablet RxNorm: 966439 1 Tablet(s) PO Q4H as needed for nausea and vomiting 04/08/2016 09/22/2017 Inactive gabapentin 600 mg tablet RxNorm: 134317 TAKE ONE TABLET BY MOUT H TWICE A DAY 03/24/2016 06/25/2016 Inactive Synthroid 112 mcg tablet RxNorm: 706539 TAKE ONE TABLET BY MOUT H DAILY 02/25/2016 04/22/2016 Inactive Levaquin 500 mg tablet RxNorm: 318374 1 Tablet(s) PO QD 01/23/2016 Inactive prednisone 20 mg tablet RxNorm: 012723 1 Tablet(s) PO T ID for 3 days then 1 po BID for 3 days then one daily for 3 days 01/23/2016 08/25/2016 Inactiv e [employer] Ultra Test strips RxNorm: TEST BLOOD SUGAR ONCE DAILY 250.00 01/09/2016 11/04/2017 Inactive methocarbamol 750 mg tablet RxNorm: 092181 2 Tablet(s) PO TID as needed for muscle spasm 01/09/2016 04/23/2016 Inactive lactulose 10 gram/15 mL oral solution RxNorm: 971786 [address](s) PO QD 01/09/2016 09/22/2017 Inactive TAKE 1 TABLESPOON BY MOUTH ONCE DAILY metformin ER 500 mg tablet,extended release 24 hr RxNorm: 86 0975 1 Tablet(s) PO QD 12/26/2015 04/22/2016 Inactive fluoxetine 20 mg capsule RxNorm: 333218 1 Capsule(s) PO QD 12/23/19 16 06/19/2016 Inactive Premarin 0.45 mg tablet RxNorm: 982224 TAKE ONE TABLET BY MOUTH DAILY 12/23/2015 05/20/2016 Inactive fluoxetine 40 mg capsule RxNorm: 782878 1 Capsule(s) PO QD 12/23/19 16 06/19/2016 Inactive TAKE ONE CAPSULE BY MOUTH EV JANKI MORNING azithromycin 500 mg tablet RxNorm: 215808 1 Tablet(s) PO QD 016 12/19/2015 Inactive Zofran 4 mg tablet RxNorm: 692189 1 Tablet(s) PO Q4H prn nausea /vomiting 12/13/2015 03/30/2018 Inactive azithromycin 500 mg tablet RxNorm: 587157 1 Tablet(s) PO QD 016 12/12/2015 Inactive Duragesic 100 mcg/hr transdermal patch RxNorm: 715070 2 Application TD Q48H for pain 12/09/2015 01/07/2016 Inactive oxycodone 10 mg tablet RxNorm: 6336439 1-2 Tablet(s) PO QID as n eeded for pain 12/09/2015 06/04/2016 Inactive Bactroban 2 % topical cream RxNorm: 330110 Application TOP BID 11/2208/25/2016 Inactive doxycycline hyclate 100 mg capsule RxNorm: 8529835 1 Capsule(s) PO BID 12/03/2015 12/12/2015 Inactive Topamax 100 mg tablet RxNorm: 854729 TAKE ONE TABLET BY MOUTH EVERY NIGHT AT BEDTIME 11/25/2015 05/22/2016 Inactive Symbicort 160 mcg-4.5 mcg/actuation HFA aerosol inhaler RxNo rm: 3653414 INHALE TWO PUFFS TWO TIMES A DAY 11/25/2015 05/22/2016 Inactive Synthroid 112 mcg tablet RxNorm: 761606 Tablet(s) TAKE ONE TABLET BY MOUTH DAILY 11/25/2015 02/22/2016 Inactive omeprazole 40 mg capsule,delayed release RxNorm: 873684 1 Capsu le(s) PO QD 11/12/2015 05/05/2016 Inactive oxycodone 10 mg tablet RxNorm: 5775094 1-2 Tablet(s) PO QID as n eeded for pain 11/05/2015 12/08/2015 Inactive Duragesic 100 mcg/hr transdermal patch RxNorm: 300912 2 Application TD Q48H for pain 11/05/2015 12/04/2015 Inactive omeprazole 40 mg capsule,delayed release RxNorm: 169043 1 Capsu le(s) PO QD 10/07/2015 11/11/2015 Inactive Januvia 100 mg tablet RxNorm: 900941 TAKE ONE TABLET BY MOUTH DAILY 09/11/2015 12/25/2015 Inactive Zithromax 500 mg tablet RxNorm: 569089 1 Tablet(s) PO QD 09/10/2015 1 Inactive prednisone 20 mg tablet RxNorm: 576948 1 Tablet(s) PO T ID for 3 days then 1 po BID for 3 days then one daily for 3 days 09/10/2015 08/25/2016 Inactiv e Wellbutrin XL 300 mg 24 hr tablet, extended release RxNorm: 692188 1 Tablet(s) PO QAM 09/10/2015 12/02/2015 Inactive Topamax 100 mg tablet RxNorm: 456267 TAKE ONE TABLET BY MOUTH EVERY NIGHT AT BEDTIME 09/02/2015 11/24/2015 Inactive Synthroid 112 mcg tablet RxNorm: 315967 TAKE ONE TABLET BY MOUT H DAILY 09/02/2015 11/25/2015 Inactive methocarbamol 750 mg tablet RxNorm: 829636 2 Tablet(s) PO TID as needed for muscle spasm 08/15/2015 01/09/2016 Inactive Wellbutrin XL 150 mg 24 hr tablet, extended release RxNorm: 276357 TAKE ONE TABLET BY MOUTH EVERY MORNING 08/13/2015 08/13/2015 Inactive gabapentin 600 mg tablet RxNorm: 061174 1 Tablet(s) PO BID 08/13/20 15 02/08/2016 Inactive Wellbutrin XL 300 mg 24 hr tablet, extended release RxNorm: 347566 1 Tablet(s) PO QAM 08/06/2015 09/09/2015 Inactive Wellbutrin XL 150 mg 24 hr tablet, extended release RxNorm: 695614 1 Tablet(s) PO QAM 07/18/2015 08/05/2015 Inactive prednisone 20 mg tablet RxNorm: 222603 1 Tablet(s) PO BID 07/18/2015 07/22/2015 Inactive doxycycline hyclate 100 mg tablet,delayed release RxNorm: 43 4018 1 Tablet(s) PO BID 07/18/2015 07/27/2015 Inactive pravastatin 40 mg tablet RxNorm: 721936 1 Tablet(s) PO QD NEEDS FASTING LAB 07/15/2015 07/14/2015 Inactive pravastatin 40 mg tablet RxNorm: 256338 1 Tablet(s) PO QD NEEDS FASTING LAB 07/15/2015 01/25/2018 Inactive Ventolin HFA 90 mcg/actuation aerosol inhaler RxNorm: 989428 2 Puff(s) INH Q4H 07/08/2015 07/07/2015 Inactive prn Premarin 0.45 mg tablet RxNorm: 692740 1 Tablet(s) PO QD 07/01/2015 0 12/22/2015 Inactive pravastatin 40 mg tablet RxNorm: 193748 1 Tablet(s) PO QD NEEDS FASTING LAB 06/14/2015 07/15/2015 Inactive Ventolin HFA 90 mcg/actuation aerosol inhaler RxNorm: 6308000 2 Puff(s) INH Q4H 06/06/2015 07/08/2015 Inactive prn albuterol sulfate 2.5 mg/3 mL (0.083 %) solution for n ebulization RxNorm: 058644 1 Unit Dose INH QID 05/30/2015 No Stop Date Active Duragesic 100 mcg/hr transdermal patch RxNorm: 785859 2 Application TD Q48H for pain 04/29/2015 05/28/2015 Inactive gabapentin 600 mg tablet RxNorm: 430712 1 Tablet(s) PO BID 04/11/20 15 08/13/2015 Inactive Onglyza 5 mg tablet RxNorm: 514280 1 Tablet(s) PO QD for blood suga r 04/10/2015 04/15/2015 Inactive [Brand Copay Card: RxBIN:[id number] PCN:CRISTIANA RxGRP:[id number] ID#:[id number]] methocarbamol 750 mg tablet RxNorm: 671710 2 Tablet(s) PO TID as needed for muscle spasm 03/28/2015 08/15/2015 Inactive pravastatin 40 mg tablet RxNorm: 061576 1 Tablet(s) PO QD 03/19/2015 03/18/2015 Inactive pravastatin 40 mg tablet RxNorm: 875273 1 Tablet(s) PO QD 03/19/2015 06/14/2015 Inactive lactulose 10 gram/15 mL oral solution RxNorm: 129605 [address]s) PO QD 03/07/2015 01/09/2016 Inactive TAKE 1 TABLESPOON BY MOUTH ONCE DAILY oxycodone 20 mg tablet RxNorm: 5988508 1 Tablet(s) PO QID as nee ded for pain 03/05/2015 07/08/2015 Inactive Topamax 100 mg tablet RxNorm: 070234 1 Tablet(s) PO QHS TAKE ONE TABLET BY MOUTH AT BEDTIME 02/25/2015 02/12/2019 Inactive metformin ER 500 mg tablet,extended release 24 hr RxNorm: 86 0975 1 Tablet(s) PO QD 02/11/2015 03/04/2015 Inactive take one tablet by mouth every day Daliresp 500 mcg tablet RxNorm: 0082723 1 Tablet(s) PO QD 02/11/2015 08/09/2015 Inactive Endocet 10 mg-325 mg tablet RxNorm: 3945421 1 Tablet(s) PO Q4H as needed for pain 01/23/2015 01/23/2015 Inactive gabapentin 600 mg tablet RxNorm: 485626 1 Tablet(s) PO BID 01/23/20 15 04/11/2015 Inactive methocarbamol 750 mg tablet RxNorm: 429148 2 Tablet(s) PO TID as needed for muscle spasm 01/15/2015 02/13/2015 Inactive fluoxetine 40 mg capsule RxNorm: 150498 1 Capsule(s) PO QD 01/14/20 15 12/23/2015 Inactive TAKE ONE CAPSULE BY MOUTH EV JANKI MORNING fluoxetine 20 mg capsule RxNorm: 258744 1 Capsule(s) PO QD 01/14/20 15 12/23/2015 Inactive Premarin 0.45 mg tablet RxNorm: 788301 1 Tablet(s) PO QD 01/02/2015 0 07/01/2015 Inactive Endocet 10 mg-325 mg tablet RxNorm: 6422060 1-2 Tablet(s) PO Q4H 02/12/2019 Inactive PRN PAIN Duragesic 100 mcg/hr transdermal patch RxNorm: 963666 2 Application TD Q48H for pain 12/25/2014 01/23/2015 Inactive Topamax 100 mg tablet RxNorm: 320925 1 Tablet(s) PO QHS TAKE ONE TABLET BY MOUTH AT BEDTIME 12/25/2014 02/24/2015 Inactive Tudorza Pressair 400 mcg/actuation breath activated RxNorm: 7734471 1 BID INHALE ONE PUFF INTO LUNGS TWO TIMES A DAY 12/17/2014 05/15/2015 Inactive Endocet 10 mg-325 mg tablet RxNorm: 0124725 1-2 Tablet(s) PO Q4H 12/19/2014 Inactive PRN PAIN Duragesic 100 mcg/hr transdermal patch RxNorm: 791401 2 Application TD Q48H for pain 11/20/2014 12/24/2014 Inactive [employer] Ultra Test strips RxNorm: TEST BLOOD SUGAR ONCE DAILY 250.00 11/16/2014 01/08/2016 Inactive omeprazole 40 mg capsule,delayed release RxNorm: 153468 1 Capsu le(s) PO QD 11/13/2014 11/12/2015 Inactive metformin ER 500 mg tablet,extended release 24 hr RxNorm: 86 0975 1 Tablet(s) PO QD 11/12/2014 02/11/2015 Inactive take one tablet by mouth every day Symbicort 160 mcg-4.5 mcg/actuation HFA aerosol inhaler RxNo rm: 5759694 2 Puff(s) INH BID 11/12/2014 03/11/2015 Inactive INHALE 2 PUFFS O RALLY TWO TIMES A DAY gabapentin 800 mg tablet RxNorm: 393115 1 Tablet(s) PO QD TAKE ONE TABLET BY MOUTH ONCE A DAY 10/22/2014 01/01/2015 Inactive Endocet 10 mg-325 mg tablet RxNorm: 5004259 1-2 Tablet(s) PO Q4H 11/15/2014 Inactive PRN PAIN Duragesic 100 mcg/hr transdermal patch RxNorm: 229598 2 Application TD Q48H for pain 10/17/2014 11/19/2014 Inactive gabapentin 800 mg tablet RxNorm: 615535 1 Tablet(s) PO QD TAKE ONE TABLET BY MOUTH ONCE A DAY 10/04/2014 10/21/2014 Inactive Premarin 0.9 mg tablet RxNorm: 486665 1 Tablet(s) PO QD TAKE ONE TABLET BY MOUTH ONCE A DAY 10/04/2014 01/01/2015 Inactive Spiriva with HandiHaler 18 mcg & inhalation capsules RxNorm: 898359 1 Capsule(s) INH QD 10/03/2014 04/30/2015 Inactive Levaquin 500 mg tablet RxNorm: 743463 1 Tablet(s) PO QD 10/03/2014 Inactive prednisone 20 mg tablet RxNorm: 309274 1 Tablet(s) PO QD 10/03/2014 1 12/09/2013 Inactive Duragesic 100 mcg/hr transdermal patch RxNorm: 596045 2 Application TD Q48H for pain 09/18/2014 10/16/2014 Inactive Endocet 10 mg-325 mg tablet RxNorm: 8612926 1-2 Tablet(s) PO Q4H 10/16/2014 Inactive PRN PAIN Synthroid 112 mcg tablet RxNorm: 285929 1 Tablet(s) QD 09/10/2014 Inactive Synthroid 112 mcg tablet RxNorm: 428508 TAKE ONE TABLET BY MOUTH ONE TIME A DAY. NEEDS LABS 09/10/2014 02/06/2015 Inactive omeprazole 40 mg capsule,delayed release RxNorm: 696149 1 Capsu le(s) PO QD 09/03/2014 11/13/2014 Inactive omeprazole 40 mg capsule,delayed release RxNorm: 557596 1 Capsu le(s) PO QD 09/03/2014 09/02/2014 Inactive Spiriva with HandiHaler 18 mcg & inhalation capsules RxNorm: 656639 1 Capsule(s) INH QD 08/27/2014 10/02/2014 Inactive gabapentin 600 mg tablet RxNorm: 201059 1 Tablet(s) PO BID 08/27/20 14 10/22/2014 Inactive Endocet 10 mg-325 mg tablet RxNorm: 3837287 1-2 Tablet(s) PO Q4H 09/17/2014 Inactive PRN PAIN fentanyl 100 mcg/hr transdermal patch RxNorm: 194064 1 Unit Dos e TD QD 08/21/2014 09/19/2014 Inactive Daliresp 500 mcg tablet RxNorm: 2159957 1 Tablet(s) PO QD 08/13/2014 02/11/2015 Inactive Synthroid 112 mcg tablet RxNorm: 116732 TAKE ONE TABLET BY MOUTH ONE TIME A DAY. NEEDS LABS 08/10/2014 09/10/2014 Inactive Endocet 10 mg-325 mg tablet RxNorm: 4513522 1-2 Tablet(s) PO Q4H 08/17/2014 Inactive PRN PAIN Duragesic 100 mcg/hr transdermal patch RxNorm: 269553 2 Application TD Q48H for pain 07/19/2014 09/17/2014 Inactive fluoxetine 40 mg capsule RxNorm: 492324 1 Capsule(s) PO QD 07/17/20 14 01/14/2015 Inactive TAKE ONE CAPSULE BY MOUTH EV JANKI MORNING fluoxetine 20 mg capsule RxNorm: 480357 1 Capsule(s) PO QD 07/17/20 14 01/14/2015 Inactive Spiriva with HandiHaler 18 mcg & inhalation capsules RxNorm: 121240 1 Capsule(s) INH QD 07/17/2014 08/26/2014 Inactive INHALE CONTENTS OF 1 CAPSULE(S) WITH HANDIHALER ONCE DAILY Zofran 4 mg tablet RxNorm: 820268 1 Tablet(s) PO Q4H prn nausea 07/25/2014 Inactive Synthroid 112 mcg tablet RxNorm: 377818 1 Tablet(s) PO QD 07/09/2014 07/09/2014 Inactive methocarbamol 750 mg tablet RxNorm: 177885 2 Tablet(s) PO TID as needed for muscle spasm 07/09/2014 09/06/2014 Inactive Synthroid 112 mcg tablet RxNorm: 809561 1 Tablet(s) PO QD - nee d labs 07/09/2014 08/07/2014 Inactive Medrol (Aníbal) 4 mg tablets in a dose pack RxNorm: 519595 6 Tablet(s) PO QD --then as directed 07/03/2014 07/08/2014 Inactive Tudorza Pressair 400 mcg/actuation breath activated RxNorm: 6272650 1 Puff(s) INH BID 07/03/2014 12/17/2014 Inactive cefdinir 300 mg capsule RxNorm: 505453 1 Capsule(s) PO BID 07/03/20 14 07/12/2014 Inactive Topamax 100 mg tablet RxNorm: 116280 Tablet(s) TAKE ONE TABLET BY MOUTH AT BEDTIME 07/02/2014 02/25/2015 Inactive Duragesic 100 mcg/hr transdermal patch RxNorm: 474690 2 Application TD Q48H for pain 06/25/2014 07/18/2014 Inactive Endocet 10 mg-325 mg tablet RxNorm: 5939251 1-2 Tablet(s) PO Q4H 07/18/2014 Inactive PRN PAIN metformin ER 500 mg tablet,extended release 24 hr RxNorm: 86 0975 1 Tablet(s) PO QD Needs labs 06/18/2014 07/01/2014 Inactive take one tablet by mouth every day Duragesic 100 mcg/hr transdermal patch RxNorm: 221363 2 Application TD Q48H for pain 05/22/2014 06/24/2014 Inactive Synthroid 112 mcg tablet RxNorm: 217482 1 Tablet(s) PO QD 05/22/2014 07/09/2014 Inactive Endocet 10 mg-325 mg tablet RxNorm: 0604467 1-2 Tablet(s) PO Q4H 06/20/2014 Inactive PRN PAIN Endocet 10 mg-325 mg tablet RxNorm: 3478818 1-2 Tablet(s) PO Q4H 05/21/2014 Inactive PRN PAIN Duragesic 100 mcg/hr transdermal patch RxNorm: 696925 2 Application TD Q48H for pain 04/25/2014 05/21/2014 Inactive Daliresp 500 mcg tablet RxNorm: 7768998 1 Tablet(s) PO QD 04/24/2014 08/13/2014 Inactive Symbicort 160 mcg-4.5 mcg/actuation HFA aerosol inhaler RxNo rm: 8270152 2 Puff(s) INH BID 04/24/2014 08/21/2014 Inactive INHALE 2 PUFFS O RALLY TWO TIMES A DAY metformin ER 500 mg tablet,extended release 24 hr RxNorm: 86 0975 1 Tablet(s) PO QD 04/24/2014 11/12/2014 Inactive TAKE ONE TABLET BY MOUTH EVERY DAY [AttnRPh:Saving Apply/Adjudicate RxGRP:LDMGRP RxBIN:[id number] RxPCN:2012 PCode:01 ID#:[id number]] Symbicort 160 mcg-4.5 mcg/actuation HFA aerosol inhaler RxNo rm: 0439757 2 Puff(s) INH BID 04/24/2014 11/12/2014 Inactive INHALE 2 PUFFS O RALLY TWO TIMES A DAY Premarin 0.9 mg tablet RxNorm: 735164 1 Tablet(s) PO QD 04/24/2014 Inactive TAKE ONE TABLET BY MOUTH EVERY DAY metformin ER 500 mg tablet,extended release 24 hr RxNorm: 86 0975 1 Tablet(s) PO QD Needs labs 04/24/2014 06/18/2014 Inactive TAKE ONE TABLET BY MOUTH EVERY DAY [AttnRPh:Saving Apply/Adjudicate RxGRP:LDMGRP RxBIN:[id number] RxPCN:2012 PCode:01 ID#:[id number]] gabapentin 800 mg tablet RxNorm: 633168 1 Tablet(s) PO QD 04/24/2014 10/04/2014 Inactive TAKE ONE TABLET BY MOUTH EVERY DAY Topamax 100 mg tablet RxNorm: 565311 1 Tablet(s) PO QHS 04/17/2014 Inactive Topamax 100 mg tablet RxNorm: 338391 TAKE ONE TABLET BY MOUTH A T BEDTIME 04/17/2014 07/01/2014 Inactive Tudorza Pressair 400 mcg/actuation breath activated RxNorm: 5619173 1 Puff(s) INH BID 04/11/2014 07/02/2014 Inactive Duragesic 100 mcg/hr transdermal patch RxNorm: 256112 2 Application TD Q48H for pain 03/27/2014 04/24/2014 Inactive Endocet 10 mg-325 mg tablet RxNorm: 3253109 1-2 Tablet(s) PO Q4H 04/24/2014 Inactive PRN PAIN Robaxin 750 mg tablet RxNorm: 760728 2 Tablet(s) PO TID as need ed for spasm 02/23/2014 03/28/2015 Inactive Duragesic 100 mcg/hr transdermal patch RxNorm: 307348 2 Application TD Q48H for pain 02/23/2014 No Stop Date Active Endocet 10 mg-325 mg tablet RxNorm: 3886952 1-2 Tablet(s) PO Q4H 03/23/2014 Inactive PRN PAIN Synthroid 112 mcg tablet RxNorm: 341935 1 Tablet(s) PO QD TAKE ONE TABLET BY MOUTH EVERY DAY 02/15/2014 05/22/2014 Inactive Zithromax 500 mg tablet RxNorm: 079213 1 Tablet(s) PO QD 01/30/2014 0 02/05/2014 Inactive Diflucan 100 mg tablet RxNorm: 816628 1 Tablet(s) PO QD 01/30/2014 Inactive prednisone 20 mg tablet RxNorm: 083725 1 Tablet(s) PO BID 01/30/2014 02/05/2014 Inactive fluoxetine 40 mg capsule RxNorm: 564062 1 Capsule(s) PO QD 01/23/20 14 07/16/2014 Inactive TAKE ONE CAPSULE BY MOUTH EV JANKI MORNING fluoxetine 40 mg capsule RxNorm: 595078 1 Capsule(s) PO QD 01/23/20 14 07/17/2014 Inactive TAKE ONE CAPSULE BY MOUTH EV JANKI MORNING cefdinir 300 mg capsule RxNorm: 565310 1 Capsule(s) PO BID 01/16/20 14 01/29/2014 Inactive Zithromax 500 mg tablet RxNorm: 857937 1 Tablet(s) PO QD 01/16/2014 0 01/22/2014 Inactive prednisone 20 mg tablet RxNorm: 391734 1 Tablet(s) PO BID 01/16/2014 01/22/2014 Inactive Spiriva with HandiHaler 18 mcg and inhalation capsules RxNor m: 429609 1 Capsule(s) INH QD 12/18/2013 07/17/2014 Inactive INHALE CONTENT S OF 1 CAPSULE(S) WITH HANDIHALER ONCE DAILY fluoxetine 20 mg capsule RxNorm: 304461 1 Capsule(s) PO QD 12/18/19 14 06/15/2014 Inactive Spiriva with HandiHaler 18 mcg & inhalation capsules RxNorm: 635609 1 Capsule(s) INH QD 12/18/2013 06/15/2014 Inactive INHALE CONTENTS OF 1 CAPSULE(S) WITH HANDIHALER ONCE DAILY fluoxetine 20 mg capsule RxNorm: 900423 1 Capsule(s) PO QD 12/18/19 14 07/17/2014 Inactive cefdinir 300 mg capsule RxNorm: 555511 2 Capsule(s) PO QD 12/12/2013 12/21/2013 Inactive Duragesic 100 mcg/hr transdermal patch RxNorm: 860867 2 Application TD Q48H for pain 12/08/2013 12/07/2013 Inactive Topamax 100 mg tablet RxNorm: 730790 1 Tablet(s) PO QHS 12/04/2013 Inactive Endocet 10 mg-325 mg tablet RxNorm: 1021282 1-2 Tablet(s) PO Q4H 12/26/2013 Inactive PRN PAIN Robaxin 750 mg tablet RxNorm: 609190 2 Tablet(s) PO TID as need ed for spasm 11/07/2013 01/05/2014 Inactive gabapentin 800 mg tablet RxNorm: 963445 1 Tablet(s) PO QD 10/16/2013 04/24/2014 Inactive TAKE ONE TABLET BY MOUTH EVERY DAY Symbicort 160 mcg-4.5 mcg/actuation HFA aerosol inhaler RxNo rm: 5559878 2 Puff(s) INH BID 10/16/2013 04/24/2014 Inactive INHALE 2 PUFFS O RALLY TWO TIMES A DAY Premarin 0.9 mg tablet RxNorm: 113170 1 Tablet(s) PO QD 10/16/2013 Inactive TAKE ONE TABLET BY MOUTH EVERY DAY metformin ER 500 mg tablet,extended release 24 hr RxNorm: 86 0975 1 Tablet(s) PO QD 10/16/2013 04/24/2014 Inactive TAKE ONE TABLET BY MOUTH EVERY DAY Daliresp 500 mcg tablet RxNorm: 5486834 1 Tablet(s) PO QD 10/16/2013 04/24/2014 Inactive Robaxin 750 mg tablet RxNorm: 966363 2 Tablet(s) PO TID as need ed for spasm 10/10/2013 11/06/2013 Inactive Duragesic 100 mcg/hr transdermal patch RxNorm: 051636 2 Application TD Q48H for pain 10/09/2013 No Stop Date Active Soma 350 mg tablet RxNorm: 128980 1 Tablet(s) PO TID 09/27/201310/09 Inactive TAKE ONE TABLET BY MOUTH THREE TIMES A D AY lactulose 10 gram/15 mL oral solution RxNorm: 590602 [address](s) PO QD 09/13/2013 03/07/2015 Inactive TAKE 1 TABLESPOON BY MOUTH ONCE DAILY Duragesic 100 mcg/hr transdermal patch RxNorm: 960586 2 Application TD Q48H for pain 09/06/2013 No Stop Date Active Endocet 10 mg-325 mg tablet RxNorm: 4464188 1-2 Tablet(s) PO Q4H 09/27/2013 Inactive PRN PAIN lancets 28 gauge RxNorm: Miscellaneous As needed for blo od glucose sticks 08/24/2013 No Stop Date Active 16.2 mg-0.1037 mg-0.0194 mg tablet RxNorm: 5950505 Tablet(s) PO PRN for gas and cramping 08/24/2013 01/19/2017 Inactive TAKE TWO TABLET S BY MOUTH THREE TIMES A DAY NEEDED FOR GAS AND CRAMPING Topamax 100 mg tablet RxNorm: 247978 1 Tablet(s) PO QHS 07/31/2013 Inactive Diflucan 100 mg tablet RxNorm: 054445 1 Tablet(s) PO QD 07/27/2013 Inactive cefdinir 300 mg capsule RxNorm: 702158 1 Capsule(s) PO BID 07/26/20 13 08/08/2013 Inactive Daliresp 500 mcg tablet RxNorm: 2972247 1 Tablet(s) PO QD 07/25/2013 10/15/2013 Inactive fluoxetine 40 mg capsule RxNorm: 597247 1 Capsule(s) PO QD 07/25/20 13 01/22/2014 Inactive TAKE ONE CAPSULE BY MOUTH EV JANKI MORNING Senokot-S 8.6 mg-50 mg tablet RxNorm: 2020185 1 Tablet(s) PO BID 10/25/2013 Inactive doxycycline hyclate 100 mg capsule RxNorm: 0357366 1 Capsule(s) PO BID 06/28/2013 07/07/2013 Inactive prednisone 20 mg tablet RxNorm: 768934 1 Tablet(s) PO BID 06/28/2013 07/04/2013 Inactive Zofran 4 mg tablet RxNorm: 201145 1 Tablet(s) PO Q4H prn nausea 03/201307/05/2013 Inactive Spiriva with HandiHaler 18 mcg & inhalation capsules RxNorm: 535866 1 Capsule(s) INH QD 06/26/2013 12/18/2013 Inactive INHALE CONTENTS OF 1 CAPSULE(S) WITH HANDIHALER ONCE DAILY Synthroid 112 mcg tablet RxNorm: 274844 1 Tablet(s) PO QD TAKE ONE TABLET BY MOUTH EVERY DAY 06/19/2013 02/15/2014 Inactive fluoxetine 20 mg capsule RxNorm: 302590 1 Capsule(s) PO QD 06/19/20 13 12/18/2013 Inactive Ventolin HFA 90 mcg/actuation Aerosol Inhaler RxNorm: 0517837 2 Puff(s) INH Q4H 06/05/2013 No Stop Date Active prn Soma 350 mg tablet RxNorm: 004418 1 Tablet(s) PO TID 06/05/201307/04 Inactive TAKE ONE TABLET BY MOUTH THREE TIMES A D AY prednisone 20 mg tablet RxNorm: 972020 1 Tablet(s) PO QD 05/31/2013 0 06/06/2013 Inactive Topamax 100 mg tablet RxNorm: 236047 1 Tablet(s) PO QHS 05/22/2013 Inactive Levaquin 500 mg tablet RxNorm: 183431 1 Tablet(s) PO QD 05/03/2013 Inactive Diflucan 100 mg tablet RxNorm: 494954 1 Tablet(s) PO QD 05/03/2013 Inactive Daliresp 500 mcg tablet RxNorm: 8962213 1 Tablet(s) PO QD 05/01/2013 07/24/2013 Inactive Daliresp 500 mcg tablet RxNorm: 2744802 1 Tablet(s) PO QD 05/01/2013 04/30/2013 Inactive gabapentin 800 mg tablet RxNorm: 561809 1 Tablet(s) PO QD 04/10/2013 10/06/2013 Inactive TAKE ONE TABLET BY MOUTH EVERY DAY metformin ER 500 mg tablet,extended release 24 hr RxNorm: 86 0977 1 Tablet(s) PO QD 04/10/2013 10/06/2013 Inactive TAKE ONE TABLET BY MOUTH EVERY DAY Premarin 0.9 mg tablet RxNorm: 874967 1 Tablet(s) PO QD 04/10/2013 Inactive TAKE ONE TABLET BY MOUTH EVERY DAY Symbicort 160 mcg-4.5 mcg/actuation HFA aerosol inhaler RxNo rm: 1179518 2 Puff(s) INH BID 04/10/2013 10/06/2013 Inactive INHALE 2 PUFFS O RALLY TWO TIMES A DAY Synthroid 112 mcg tablet RxNorm: 081451 1 Tablet(s) PO QD TAKE ONE TABLET BY MOUTH EVERY DAY 04/10/2013 06/18/2013 Inactive Ventolin HFA 90 mcg/actuation Aerosol Inhaler RxNorm: 647363 2 Puff(s) INH Q4H 04/10/2013 No Stop Date Active prn fentanyl 100 mcg/hr transdermal patch RxNorm: 412719 1 Unit Dos e TD QD 04/03/2013 05/02/2013 Inactive Endocet 10 mg-325 mg tablet RxNorm: 1323462 1-2 Tablet(s) PO Q4H 05/02/2013 Inactive PRN PAIN Topamax 100 mg tablet RxNorm: 353119 1 Tablet(s) PO QHS 03/13/2013 Inactive Reglan 10 mg tablet RxNorm: 313485 1 Tablet(s) PO QID b efore meals and at bedtime 03/13/2013 04/09/2015 Inactive fluoxetine 20 mg capsule RxNorm: 340225 1 Capsule(s) PO QD 02/28/20 13 05/27/2013 Inactive Ventolin HFA 90 mcg/actuation Aerosol Inhaler RxNorm: 928176 2 Puff(s) INH Q4H 02/13/2013 No Stop Date Active prn fluoxetine 40 mg capsule RxNorm: 731225 1 Capsule(s) PO QD 01/31/20 13 07/24/2013 Inactive TAKE ONE CAPSULE BY MOUTH EV JANKI MORNING Soma 350 mg tablet RxNorm: 761712 1 Tablet(s) PO TID 01/20/201302/18 Inactive TAKE ONE TABLET BY MOUTH THREE TIMES A D AY Endocet 10 mg-325 mg tablet RxNorm: 9660482 1-2 Tablet(s) PO Q4H 02/06/2013 Inactive PRN PAIN MS Contin 200 mg tablet,extended release RxNorm: 409139 1 Table t(s) PO BID 01/18/2013 02/06/2013 Inactive Ventolin HFA 90 mcg/actuation Aerosol Inhaler RxNorm: 434220 2 Puff(s) INH Q4H 01/04/2013 No Stop Date Active prn Spiriva with HandiHaler 18 mcg & inhalation capsules RxNorm: 629244 1 Capsule(s) INH QD 12/29/2012 06/25/2013 Inactive INHALE CONTENTS OF 1 CAPSULE(S) WITH HANDIHALER ONCE DAILY Spiriva with HandiHaler 18 mcg & inhalation capsules RxNorm: 362170 1 Capsule(s) INH QD 12/26/2012 12/28/2012 Inactive INHALE CONTENTS OF 1 CAPSULE(S) WITH HANDIHALER ONCE DAILY Synthroid 112 mcg tablet RxNorm: 975448 Tablet(s) PO TA KE ONE TABLET BY MOUTH EVERY DAY 12/26/2012 04/09/2013 Inactive Endocet 10 mg-325 mg tablet RxNorm: 9194276 1-2 Tablet(s) PO Q4H 01/17/2013 Inactive PRN PAIN MS Contin 200 mg tablet,extended release RxNorm: 414395 1 Table t(s) PO BID 12/21/2012 01/17/2013 Inactive fluoxetine 20 mg capsule RxNorm: 504241 1 Capsule(s) PO QD 12/06/19 13 02/26/2013 Inactive Synthroid 112 mcg tablet RxNorm: 293443 1 Tablet(s) PO QD 12/06/2012 02/12/2019 Inactive TAKE ONE TABLET BY MOUTH EVERY DAY Ventolin HFA 90 mcg/actuation Aerosol Inhaler RxNorm: 132622 2 Puff(s) INH Q4H 12/06/2012 No Stop Date Active prn Reglan 10 mg tablet RxNorm: 571413 1 Tablet(s) PO QID b efore meals and at bedtime 11/24/2012 03/12/2013 Inactive Topamax 100 mg tablet RxNorm: 447033 1 Tablet(s) PO QHS 11/16/2012 Inactive Ventolin HFA 90 mcg/actuation Aerosol Inhaler RxNorm: 883106 2 Puff(s) INH Q4H 11/09/2012 No Stop Date Active prn gabapentin 800 mg tablet RxNorm: 332208 1 Tablet(s) PO QD 10/27/2012 04/09/2013 Inactive TAKE ONE TABLET BY MOUTH EVERY DAY metformin ER 500 mg tablet,extended release 24 hr RxNorm: 86 0977 1 Tablet(s) PO QD 10/27/2012 04/09/2013 Inactive TAKE ONE TABLET BY MOUTH EVERY DAY Symbicort 160 mcg-4.5 mcg/actuation HFA Aerosol Inhaler RxNo rm: 3364118 2 Puff(s) INH BID 10/27/2012 04/09/2013 Inactive INHALE 2 PUFFS O RALLY TWO TIMES A DAY Premarin 0.9 mg tablet RxNorm: 403241 1 Tablet(s) PO QD 10/27/2012 Inactive TAKE ONE TABLET BY MOUTH EVERY DAY Endocet 10 mg-325 mg tablet RxNorm: 4695794 1-2 Tablet(s) PO Q4H 11/24/2012 Inactive PRN PAIN MS Contin 200 mg tablet,extended release RxNorm: 630178 1 Table t(s) PO BID 10/26/2012 11/24/2012 Inactive Soma 350 mg tablet RxNorm: 551194 1 Tablet(s) PO TID 10/04/201211/02 Inactive TAKE ONE TABLET BY MOUTH THREE TIMES A D AY Ventolin HFA 90 mcg/actuation Aerosol Inhaler RxNorm: 341057 2 Puff(s) INH Q4H 10/03/2012 No Stop Date Active prn Daliresp 500 mcg tablet RxNorm: 9692569 1 Tablet(s) PO QD 09/28/2012 09/27/2012 Inactive Daliresp 500 mcg tablet RxNorm: 5788761 1 Tablet(s) PO QD 09/28/2012 04/25/2013 Inactive fluoxetine 20 mg capsule RxNorm: 315509 1 Capsule(s) PO QD 09/05/2012/06/2012 Inactive Topamax 50 mg tablet RxNorm: 308031 Tablet(s) PO for 1w k then 1 po q HS for 1wk then 2 po q HS 08/29/2012 09/27/2012 Inactive TAKE 1/2 TABLET BY MOUTH AT BEDTIME FOR 1 WEEK, THEN 1 TABLET AT BEDTIME FOR 1 WEEK, THEN 2 TABLETS AT BEDTIME Topamax 100 mg tablet RxNorm: 399825 1 Tablet(s) PO QHS 08/29/2012 Inactive Ventolin HFA 90 mcg/actuation Aerosol Inhaler RxNorm: 051395 2 Puff(s) INH Q4H 08/19/2012 No Stop Date Active prn Ventolin HFA 90 mcg/actuation Aerosol Inhaler RxNorm: 987268 2 Puff(s) INH Q4H 08/15/2012 No Stop Date Active prn Synthroid 112 mcg tablet RxNorm: 438064 1 Tablet(s) PO QD 08/10/2012 11/07/2012 Inactive TAKE ONE TABLET BY MOUTH EVERY DAY Synthroid 112 mcg tablet RxNorm: 918571 1 Tablet(s) PO QD 08/01/2012 08/09/2012 Inactive TAKE ONE TABLET BY MOUTH EVERY DAY Reglan 10 mg tablet RxNorm: 574511 1 Tablet(s) PO QID b efore meals and at bedtime 08/01/2012 11/23/2012 Inactive fluoxetine 40 mg capsule RxNorm: 050932 1 Capsule(s) PO QD 08/01/2001/27/2013 Inactive TAKE ONE CAPSULE BY MOUTH EV JANKI MORNING Ventolin HFA 90 mcg/actuation Aerosol Inhaler RxNorm: 019130 2 Puff(s) INH Q4H 08/01/2012 No Stop Date Active prn Soma 350 mg tablet RxNorm: 789783 1 Tablet(s) PO TID 07/20/201208/18 Inactive TAKE ONE TABLET BY MOUTH THREE TIMES A D AY Spiriva with HandiHaler 18 mcg & inhalation capsules RxNorm: 266337 1 Capsule(s) INH 07/01/2012 12/25/2012 Inactive INHALE CONTENTS OF 1 CAPSULE(S) WITH HANDIHALER ONCE DAILY Zithromax 250 mg Tab RxNorm: 406175 2 Tablet(s) PO QD 06/28/201206/22 Inactive MS Contin 200 mg tablet,extended release RxNorm: 373170 1 Table t(s) PO BID 06/28/2012 07/27/2012 Inactive Endocet 10 mg-325 mg tablet RxNorm: 7767356 1-2 Tablet(s) PO Q4H 07/27/2012 Inactive PRN PAIN Topamax 100 mg tablet RxNorm: 112093 1 Tablet(s) PO QHS 06/28/2012 Inactive 16.2 mg-0.1037 mg-0.0194 mg tablet RxNorm: 3625162 Tablet(s) PO PRN for gas and cramping 06/08/2012 08/23/2013 Inactive TAKE TWO TABLET S BY MOUTH THREE TIMES A DAY NEEDED FOR GAS AND CRAMPING Ventolin HFA 90 mcg/actuation Aerosol Inhaler RxNorm: 478519 2 Puff(s) INH Q4H 05/23/2012 No Stop Date Active prn Ventolin HFA 90 mcg/actuation Aerosol Inhaler RxNorm: 118811 2 Puff(s) INH Q4H 05/11/2012 No Stop Date Active prn Synthroid 112 mcg tablet RxNorm: 085777 1 Tablet(s) PO QD 05/09/2012 07/31/2012 Inactive TAKE ONE TABLET BY MOUTH EVERY DAY gabapentin 800 mg tablet RxNorm: 150381 1 Tablet(s) PO QD 05/09/2012 10/26/2012 Inactive TAKE ONE TABLET BY MOUTH EVERY DAY fluoxetine 40 mg capsule RxNorm: 124358 1 Capsule(s) PO QD 05/09/2007/31/2012 Inactive TAKE ONE CAPSULE BY MOUTH EV JANKI MORNING metformin ER 500 mg tablet,extended release 24 hr RxNorm: 86 0977 1 Tablet(s) PO QD 05/09/2012 10/26/2012 Inactive TAKE ONE TABLET BY MOUTH EVERY DAY Premarin 0.9 mg tablet RxNorm: 888744 1 Tablet(s) PO QD 05/09/2012 Inactive TAKE ONE TABLET BY MOUTH EVERY DAY Symbicort 160 mcg-4.5 mcg/actuation HFA Aerosol Inhaler RxNo rm: 2668354 2 Puff(s) INH BID 05/09/2012 10/26/2012 Inactive INHALE 2 PUFFS O RALLY TWO TIMES A DAY Endocet 10 mg-325 mg Tab RxNorm: 5563580 1-2 Tablet(s) PO Q4H 04/2705/26/2012 Inactive PRN PAIN MS Contin 200 mg Tab RxNorm: 959277 1 Tablet(s) PO BID 04/26/201202/2012 Inactive Ventolin HFA 90 mcg/actuation Aerosol Inhaler RxNorm: 464390 2 Puff(s) INH Q4H 04/25/2012 05/10/2012 Inactive prn Soma 350 mg tablet RxNorm: 465793 2 Tablet(s) PO TID 04/19/201207/19 Inactive TAKE ONE TABLET BY MOUTH THREE TIMES A D AY Ventolin HFA 90 mcg/actuation Aerosol Inhaler RxNorm: 669409 2 Puff(s) INH Q4H 04/12/2012 04/24/2012 Inactive prn Reglan 10 mg tablet RxNorm: 554100 1 Tablet(s) PO QID b efore meals and at bedtime 04/11/2012 07/31/2012 Inactive MS Contin 200 mg Tab RxNorm: 320645 1 Tablet(s) PO BID 03/30/201202/2012 Inactive Endocet 10 mg-325 mg Tab RxNorm: 4585999 1-2 Tablet(s) PO Q4H 03/3004/26/2012 Inactive PRN PAIN MS Contin 200 mg Tab RxNorm: 959431 1 Tablet(s) PO BID 03/02/201206/2012 Inactive Endocet 10 mg-325 mg Tab RxNorm: 1945534 1-2 Tablet(s) PO Q4H 03/0203/29/2012 Inactive PRN PAIN Daliresp 500 mcg tablet RxNorm: 1929640 1 Tablet(s) PO QD 03/01/2012 09/28/2012 Inactive MS Contin 200 mg Tab RxNorm: 879213 1 Tablet(s) PO BID 02/02/201208/2012 Inactive Endocet 10 mg-325 mg Tab RxNorm: 6278879 1-2 Tablet(s) PO Q4H 02/0103/01/2012 Inactive PRN PAIN fluoxetine 40 mg capsule RxNorm: 149451 1 Capsule(s) PO QD 02/02/2008/01/2012 Inactive TAKE ONE CAPSULE BY MOUTH EV JANKI MORNING Synthroid 112 mcg Tab RxNorm: 492161 1 Tablet(s) PO QD 01/18/2012 Inactive TAKE ONE TABLET BY MOUTH EVERY DAY lactulose 10 gram/15 mL oral solution RxNorm: 086044 [address]s) PO QD 01/18/2012 No Stop Date Active TAKE 1 TABLESPOON BY MOUTH ONCE DAILY Ventolin HFA 90 mcg/actuation Aerosol Inhaler RxNorm: 127616 2 Puff(s) INH Q4H 01/18/2012 04/11/2012 Inactive prn MS Contin 200 mg Tab RxNorm: 653175 1 Tablet(s) PO BID 01/05/201210/2012 Inactive Endocet 10 mg-325 mg Tab RxNorm: 1849117 1-2 Tablet(s) PO Q4H 01/0502/01/2012 Inactive PRN PAIN ProAir HFA 90 mcg/Actuation Aerosol Inhaler RxNorm: 771419 2 Pu ff(s) INH Q4H 12/21/2011 No Stop Date Active prn for wheezing or shortness of breath Spiriva with HandiHaler 18 mcg & inhalation Caps RxNorm: 580 261 1 Capsule(s) INH 12/21/2011 06/30/2012 Inactive INHALE CONTENTS OF 1 CAPSULE(S) WITH HANDIHALER ONCE DAILY Reglan 10 mg Tab RxNorm: 672036 1 Tablet(s) PO QID before meals and at bedtime 12/21/2011 04/10/2012 Inactive Synthroid 112 mcg Tab RxNorm: 507560 1 Tablet(s) PO QD 12/21/2011 Inactive TAKE ONE TABLET BY MOUTH EVERY DAY Endocet 10 mg-325 mg Tab RxNorm: 9489079 1-2 Tablet(s) PO Q4H 11/2512/24/2011 Inactive PRN PAIN MS Contin 200 mg Tab RxNorm: 479624 1 Tablet(s) PO BID 11/25/201112/2011 Inactive lactulose 10 gram/15 mL Oral Soln RxNorm: 095234 Milliliter(s) PO 1 No Stop Date Active TAKE 1 TABLESPOON BY MOUTH O NCE DAILY lactulose 10 gram/15 mL Oral Soln RxNorm: 635749 Milliliter(s) PO 1 12/12/2010 11/20/2011 Inactive TAKE 1 TABLESPOON BY MOUTH O NCE DAILY Premarin 0.9 mg Tab RxNorm: 460349 1 Tablet(s) PO QD 10/12/201105/08 Inactive TAKE ONE TABLET BY MOUTH EVERY DAY fluoxetine 20 mg capsule RxNorm: 127124 1 Capsule(s) PO QD 10/12/2009/05/2012 Inactive TAKE ONE CAPSULE BY MOUTH EV JANKI DAY Synthroid 112 mcg Tab RxNorm: 480650 1 Tablet(s) PO QD 10/12/2011 Inactive TAKE ONE TABLET BY MOUTH EVERY DAY metformin ER 500 mg 24 hr Tab RxNorm: 317650 1 Tablet(s) PO QD 09/2311/10/2011 Inactive TAKE ONE TABLET BY MOUTH GLYNN RY DAY Synthroid 112 mcg Tab RxNorm: 504467 1 Tablet(s) PO QD 10/12/2011 Inactive TAKE ONE TABLET BY MOUTH EVERY DAY metformin ER 500 mg 24 hr Tab RxNorm: 560632 1 Tablet(s) PO QD 09/2310/11/2011 Inactive TAKE ONE TABLET BY MOUTH GLYNN Prevacid 30 mg Cap RxNorm: 926419 Capsule(s) PO 10/12/2011 01/25/2012 Inactive TAKE ONE CAPSULE BY MOUTH EVERY DAY Symbicort 160 mcg-4.5 mcg/actuation HFA Aerosol Inhaler RxNo rm: 5160333 2 Puff(s) INH BID 10/12/2011 05/08/2012 Inactive INHALE 2 PUFFS O RALLY TWO TIMES A DAY gabapentin 800 mg Tab RxNorm: 184611 1 Tablet(s) PO QD 10/12/2011 Inactive TAKE ONE TABLET BY MOUTH EVERY DAY MS Contin 200 mg Tab RxNorm: 932311 1 Tablet(s) PO BID 09/23/201111/2010 Inactive Endocet 10 mg-325 mg Tab RxNorm: 0720342 1-2 Tablet(s) PO Q4H 09/2310/22/2011 Inactive PRN PAIN Endocet 10 mg-325 mg Tab RxNorm: 0930573 1-2 Tablet(s) PO Q4H 08/2109/19/2011 Inactive PRN PAIN MS Contin 200 mg Tab RxNorm: 878929 1 Tablet(s) PO BID 08/21/2011 Inactive Diflucan 100 mg Tab RxNorm: 596212 1 Tablet(s) PO QD 08/10/201108/16 Inactive cefdinir 300 mg Cap RxNorm: 060750 2 Capsule(s) PO QD 08/10/201107/24 Inactive Reglan 10 mg Tab RxNorm: 246179 1 Tablet(s) PO AC & HS 07/15/2011 Inactive Endocet 10 mg-325 mg Tab RxNorm: 1568329 1-2 Tablet(s) PO Q4H 07/1508/13/2011 Inactive PRN PAIN One Touch Ultra Test strips RxNorm: Miscellaneous BID 06/11/2011 1 01/16/2014 Inactive TEST TWO TIMES A DAY lactulose 10 gram/15 mL Oral Soln RxNorm: 268731 Milliliter(s) PO 0 06/10/2011 10/11/2011 Inactive TAKE 1 TABLESPOON BY MOUTH O NCE DAILY Chantix Continuing Month Aníbal 1 mg Tab RxNorm: 864835 Tablet(s) PO 0 06/10/2011 11/02/2011 Inactive TAKE DIRECTED - PER [employer] GE INSTRUCTIONS fluoxetine 40 mg Cap RxNorm: 067920 Capsule(s) PO 06/10/2011 02/02/20 Inactive TAKE ONE CAPSULE BY MOUTH EVERY MORNING Chantix Continuing Month Aníbal 1 mg Tab RxNorm: 007878 Ta blet(s) PO TAKE DIRECTED - PER PACKAGE INSTRUCTIONS 05/13/2011 06/09/2011 Inactive Soma 350 mg Tab RxNorm: 089434 Tablet(s) PO TAKE ON E TABLET BY MOUTH THREE TIMES A DAY 05/13/2011 04/18/2012 Inactive Chantix Continuing Month Aníbal 1 mg Tab RxNorm: 402323 Ta blet(s) PO as directed per package instructions. 04/22/2011 05/12/2011 Inactive Symbicort 160 mcg-4.5 mcg/Actuation HFA Aerosol Inhaler RxNo rm: [id number] HFA Aerosol Inhaler INH INHALE 2 PUFFS ORALLY TWO TIMES A DAY 04/13/2011 Inactive Synthroid 112 mcg Tab RxNorm: 040397 Tablet(s) PO TAKE ONE TABLET BY MOUTH EVERY DAY 04/13/2011 10/12/2011 Inactive Premarin 0.9 mg Tab RxNorm: 721891 Tablet(s) PO TAKE ON E TABLET BY MOUTH EVERY DAY 04/13/2011 10/12/2011 Inactive gabapentin 800 mg Tab RxNorm: 796137 Tablet(s) PO TAKE ONE TABLET BY MOUTH EVERY DAY 04/13/2011 10/12/2011 Inactive Prevacid 30 mg Cap RxNorm: 868413 1 Capsule(s) PO QD 04/13/201110/11 Inactive Spiriva with HandiHaler 18 mcg & inhalation Caps RxNorm: 580 261 Capsule(s) INH INHALE CONTENTS OF 1 CAPSULE(S) WITH HANDIHALER ONCE DAILY 04/13/2011 12/21/2011 Inactive metformin ER 500 mg 24 hr Tab RxNorm: 672090 Tablet(s) PO TAKE ONE TABLET BY MOUTH EVERY DAY 04/13/2011 10/12/2011 Inactive Soma 350 mg Tab RxNorm: 750305 1 Tablet(s) PO QID 03/30/2011 02/13/20 19 Inactive fluoxetine 20 mg Cap RxNorm: 715347 Capsule(s) PO TAKE ONE CAPSULE BY MOUTH EVERY DAY 03/25/2011 10/12/2011 Inactive cefdinir 300 mg Cap RxNorm: 485848 2 Capsule(s) PO QD 03/19/201105/2011 Inactive 16.2 mg-0.1037 mg-0.0194 mg Tab RxNorm: 9677978 2 Tablet(s) PO TID PRN for gas and cramping 03/16/2011 07/13/2011 Inactive Soma 350 mg Tab RxNorm: 476788 2 Tablet(s) PO TID 03/16/2011 03/29/20 11 Inactive Chantix Starting Month Aínbal 0.5 mg (11)-1 mg (3x14) Tab s in a Dose Pack RxNorm: 652105 Tablet(s) PO as directed 03/02/2011 No Stop Date Active diazepam 10 mg Tab RxNorm: 711993 1 Tablet(s) PO BID 02/10/201101/19 Inactive Zofran 4 mg tablet RxNorm: 161859 1 Tablet(s) PO Q4H prn nausea 02/16/2011 Inactive Diflucan 100 mg Tab RxNorm: 601233 1 Tablet(s) PO QD 01/18/201101/24 Inactive Premarin 0.625 mg/g Vaginal Cream RxNorm: 241629 VAG In sert 1gm vaginally at bedtime 3 times weekly 01/18/2011 02/12/2019 Inactive loratadine 10 mg Tab RxNorm: 1568419 1 Tablet(s) PO QD 12/17/201003/2012 Inactive Spiriva with HandiHaler 18 mcg & inhalation Caps RxNorm: 580 261 1 Capsule(s) INH QD 12/17/2010 04/12/2011 Inactive Diflucan 100 mg Tab RxNorm: 287058 1 Tablet(s) PO QD 12/17/201012/23 Inactive diazepam 10 mg Tab RxNorm: 410113 1 Tablet(s) PO BID and PRN 201002/12/2019 Inactive One Touch Ultra Test Strips RxNorm: InVt BID Zainab t blood sugar at least twice daily. 11/11/2010 06/11/2011 Inactive fluoxetine 40 mg Cap RxNorm: 851830 1 Capsule(s) PO QAM 11/11/2010 Inactive diazepam 10 mg Tab RxNorm: 954283 1 Tablet(s) PO BID and PRN 200911/12/2010 Inactive Bactrim DS 800 mg-160 mg Tab RxNorm: 534204 1 Tablet(s) PO BID 09/2210/15/2010 Inactive fluoxetine 20 mg Cap RxNorm: 112947 1 Capsule(s) PO QD 10/02/201008/2011 Inactive Bactrim DS 800 mg-160 mg Tab RxNorm: 549638 1 Tablet(s) PO BID 01/201010/03/2010 Inactive Zofran 4 mg Tab RxNorm: 537196 1 Tablet(s) PO Q4H prn nausea 200910/16/2010 Inactive 16.2 mg-0.1037 mg-0.0194 mg Tab RxNorm: 5997455 2 Tablet(s) PO TID PRN for gas and cramping 09/17/2010 10/21/2010 Inactive Gabapentin 800 mg Tab RxNorm: 930464 1 Tablet(s) PO QD 09/16/2010 Inactive ProAir HFA 90 mcg/Actuation Aerosol Inhaler RxNorm: 051665 2 Puff(s) INH Q4H prn shortness of breath 09/15/2010 12/13/2010 Inactive gabapentin 800 mg Tab RxNorm: 542837 1 Tablet(s) PO QD 09/15/2010 Inactive Prevacid 30 mg Cap RxNorm: 370190 1 Capsule(s) PO QD 09/15/201004/12 Inactive loratadine 10 mg Tab RxNorm: 7946209 1 Tablet(s) PO QD 09/15/2010 Inactive Premarin 0.9 mg Tab RxNorm: 108856 1 Tablet(s) PO QD 09/15/201004/12 Inactive Synthroid 112 mcg Tab RxNorm: 534201 1 Tablet(s) PO QD 09/15/2010 Inactive metformin ER 500 mg 24 hr Tab RxNorm: 176392 1 Tablet(s) PO QD 08/2304/12/2011 Inactive Symbicort 160 mcg-4.5 mcg/Actuation Inhalation HFA Aer osol Inhaler RxNorm: 7661804 2 Puff(s) INH BID 09/15/2010 04/12/2011 Inactive diazepam 10 mg Tab RxNorm: 247387 1 Tablet(s) PO BID and PRN 200910/13/2010 Inactive Phentermine 37.5 mg Cap RxNorm: 611273 1 Capsule(s) PO QD 09/02/2010 11/02/2011 Inactive ProAir HFA 90 mcg/Actuation Aerosol Inhaler RxNorm: 853935 2 Puff(s) INH Q4H prn shortness of breath 08/07/2010 No Stop Date Active Premarin 0.9 mg Tab RxNorm: 768402 1 Tablet(s) PO QD 08/07/201009/14 Inactive Loratadine 10 mg Tab RxNorm: 3658214 1 Tablet(s) PO QD 08/07/2010 Inactive Lactulose 10 gram/15 mL Oral Soln RxNorm: 636455 1 Unit Dose PO QD 08/07/2010 02/12/2019 Inactive Zofran 4 mg Tab RxNorm: 778814 1 Tablet(s) PO Q4H prn nausea 2009 No Stop Date Active Gabapentin 800 mg Tab RxNorm: 285247 1 Tablet(s) PO QD 08/07/2010 Inactive Synthroid 112 mcg Tab RxNorm: 428599 1 Tablet(s) PO QD 08/07/2010 Inactive Metformin ER 500 mg 24 hr Tab RxNorm: 602803 1 Tablet(s) PO QD 07/2309/14/2010 Inactive Vitamin D 1,000 unit Tab RxNorm: 375821 1 Tablet(s) PO TID 08/07/2002/12/2019 Inactive Symbicort 160 mcg-4.5 mcg/Actuation Inhalation HFA Aer osol Inhaler RxNorm: 0820778 2 Puff(s) INH BID 08/07/2010 09/14/2010 Inactive Prevacid 30 mg Cap RxNorm: 686440 1 Capsule(s) PO QD 08/07/201009/14 Inactive Metformin ER 500 mg 24 hr Tab RxNorm: 898015 1 Tablet(s) PO QD 06/2308/06/2010 Inactive Vitamin D 1,000 unit Tab RxNorm: 075546 1 Tablet(s) PO TID 07/14/2008/06/2010 Inactive Synthroid 112 mcg Tab RxNorm: 524258 1 Tablet(s) PO QD 07/14/2010 Inactive Lactulose 10 gram/15 mL Oral Soln RxNorm: 548906 1 Unit Dose PO QD 07/14/2010 08/06/2010 Inactive Levaquin 500 mg Tab RxNorm: 719086 1 Tablet(s) PO QD 07/14/201007/27 Inactive Premarin 0.9 mg Tab RxNorm: 185369 1 Tablet(s) PO QD 07/14/201008/06 Inactive ProAir HFA 90 mcg/Actuation Aerosol Inhaler RxNorm: 581899 2 Puff(s) INH Q4H prn shortness of breath 07/14/2010 No Stop Date Active Prevacid 30 mg Cap RxNorm: 941297 1 Capsule(s) PO QD 07/14/201008/06 Inactive Zofran 4 mg Tab RxNorm: 772637 1 Tablet(s) PO Q4H prn nausea 2009 No Stop Date Active Symbicort 160 mcg-4.5 mcg/Actuation Inhalation HFA Aer osol Inhaler RxNorm: 1354484 2 Puff(s) INH BID 07/14/2010 08/06/2010 Inactive Loratadine 10 mg Tab RxNorm: 6265660 1 Tablet(s) PO QD 07/14/2010 Inactive Gabapentin 800 mg Tab RxNorm: 201173 1 Tablet(s) PO QD 07/14/2010 Inactive Metformin ER 500 mg 24 hr Tab RxNorm: 809222 1 Tablet(s) PO 010 07/13/2010 Inactive Diazepam 10 mg Tab RxNorm: 389103 1 Tablet(s) PO BID and PRN 200909/06/2010 Inactive Premarin 0.9 mg Tab RxNorm: 431344 1 Tablet(s) PO QD 06/09/201007/13 Inactive Zofran 4 mg Tab RxNorm: 114983 1 Tablet(s) PO Q4H prn nausea 2009 No Stop Date Active ProAir HFA 90 mcg/Actuation Aerosol Inhaler RxNorm: 441704 2 Puff(s) INH Q4H prn shortness of breath 06/09/2010 No Stop Date Active Gabapentin 800 mg Tab RxNorm: 153490 1 Tablet(s) PO QD 06/09/2010 Inactive Loratadine 10 mg Tab RxNorm: 5212720 1 Tablet(s) PO QD 06/09/2010 Inactive Lactulose 10 gram/15 mL Oral Soln RxNorm: 547528 1 Unit Dose PO QD 06/09/2010 07/13/2010 Inactive Prevacid 30 mg Cap RxNorm: 573925 1 Capsule(s) PO QD 06/09/201007/13 Inactive Synthroid 112 mcg Tab RxNorm: 050113 1 Tablet(s) PO QD 06/09/2010 Inactive Symbicort 160 mcg-4.5 mcg/Actuation Inhalation HFA Aer osol Inhaler RxNorm: 6731147 2 Puff(s) INH BID 06/09/2010 07/13/2010 Inactive Omnicef 300 mg Cap RxNorm: 819122 2 Capsule(s) PO QD 05/07/201005/20 Inactive Metformin 500 mg Tab RxNorm: 455822 1 Tablet(s) PO QD 05/06/201005/22 Inactive ProAir HFA 90 mcg/Actuation Aerosol Inhaler RxNorm: 610790 2 Puff(s) INH Q4H prn shortness of breath 05/06/2010 No Stop Date Active lactulose 10 gram/15 mL Oral Soln RxNorm: 600138 1 Unit Dose PO QD 05/06/2010 06/10/2011 Inactive Loratadine 10 mg Tab RxNorm: 6216235 1 Tablet(s) PO QD 05/06/2010 Inactive Synthroid 112 mcg Tab RxNorm: 013999 1 Tablet(s) PO QD 05/06/2010 Inactive Symbicort 160 mcg-4.5 mcg/Actuation Inhalation HFA Aer osol Inhaler RxNorm: 9429307 2 Puff(s) INH BID 05/06/2010 06/08/2010 Inactive Gabapentin 800 mg Tab RxNorm: 800743 1 Tablet(s) PO QD 05/06/2010 Inactive 16.2 mg-0.1037 mg-0.0194 mg Tab RxNorm: 0982913 2 Tablet(s) PO TID PRN for gas and cramping 05/06/2010 05/12/2010 Inactive Zofran 4 mg Tab RxNorm: 161948 1 Tablet(s) PO Q4H prn nausea 200904/13/2010 Inactive MS Contin 60 mg Tab RxNorm: 155886 3 Tablet(s) PO BID 04/09/201004/22 Inactive Soma 350 mg Tab RxNorm: 901665 2 Tablet(s) PO TID 04/09/2010 05/08/20 10 Inactive Symbicort 160 mcg-4.5 mcg/Actuation Inhalation HFA Aer osol Inhaler RxNorm: 7374187 2 Puff(s) INH BID 04/08/2010 05/05/2010 Inactive Doxycycline 100 mg Cap RxNorm: 6383926 1 Capsule(s) PO BID 04/08/20 10 04/17/2010 Inactive Triamterene-Hydrochlorothiazide 37.5 mg-25 mg Cap RxNorm: 19 8316 1 Capsule(s) PO QAM 04/08/2010 09/04/2010 Inactive fluoxetine 40 mg Cap RxNorm: 794649 1 Capsule(s) PO QAM 04/08/2010 Inactive Morphine SR 120 mg multiphase 24 hr Cap RxNorm: 070161 1 Capsul e(s) PO 03/11/2010 04/07/2010 Inactive Endocet 10 mg-325 mg Tab RxNorm: 1292477 1-2 Tablet(s) PO Q4H DC N PAIN 03/11/2010 04/09/2010 Inactive Savella 100 mg Tab RxNorm: 978250 1 Tablet(s) PO BID 03/10/201004/09 Inactive Soma 350 mg Tab RxNorm: 906324 1 Tablet(s) PO TID prn spasm 010 04/09/2010 Inactive Savella 100 mg Tab RxNorm: 257905 1 Tablet(s) PO BID 02/03/201004/09 Inactive Aspirin 81 mg Tab RxNorm: 884475 1 Tablet(s) PO QD No Start Date Active Zyrtec 10 mg Tab RxNorm: 3822637 1 Tablet(s) PO QD No Start Date Active One Touch Ultra Test Strips RxNorm: Misc test at least t wice daily. No Start Date Active coenzyme Q10 200 mg capsule RxNorm: 312389 1 Capsule(s) PO QD No Star t Date Active One Touch Ultra Test Strips RxNorm: InVt BID Zainab t blood sugar at least twice daily. No Start Date 11/10/2010 Inactive Gabapentin 800 mg Tab RxNorm: 565090 1 Tablet(s) PO QD No Start Date 05/05/2010 Inactive Abilify 5 mg tablet RxNorm: 056198 1 Tablet(s) PO QD No Start Date Inactive Chantix 1 mg Tab RxNorm: 707880 1 Tablet(s) PO BID No Start Date 10/22 Inactive Ozempic 0.25 mg or 0.5 mg (2 mg/1.5 mL) subcutaneous p en injector RxNorm: 0061827 .25 Milligram(s) SQ QW No Start Date 07/04/2019 Inactive lancets 28 gauge RxNorm: Miscellaneous As needed for blo od glucose sticks No Start Date 08/23/2013 Inactive potassium chloride ER 20 mEq tablet,extended release RxNorm: 041469 2 Tablet(s) PO QD No Start Date 09/26/2018 Inactive Ventolin HFA 90 mcg/actuation Aerosol Inhaler RxNorm: 750109 2 Puff(s) INH Q4H prn No Start Date 01/17/2012 Inactive potassium chloride ER 20 mEq tablet,extended release RxNorm: 992500 2 Tablet(s) PO QD No Start Date 10/19/2018 Inactive Januvia 100 mg tablet RxNorm: 792996 1 Tablet(s) PO QD No Start Date 09/10/2015 Inactive Medrol (Aníbal) 4 mg Tabs in a Dose Pack RxNorm: 668885 Tablet(s) PO N o Start Date 08/09/2011 Inactive as directed Zithromax Z-Aníbal 250 mg Tab RxNorm: 411676 Tablet(s) PO No Start Date 01/25/2012 Inactive as directed vitamin B6-vitamin E-magnesium tablet RxNorm: 1 Tablet(s ) PO QHS with INH No Start Date 03/30/2018 Inactive prednisone 20 mg Tab RxNorm: 868842 1 Tablet(s) PO TID for 1wk then 1 po BID for 1wk No Start Date 01/25/2012 Inactive furosemide 40 mg tablet RxNorm: 605561 1 Tablet(s) PO QAM No Start Date 10/09/2018 Inactive Vitamin D3 1000 units Capsule RxNorm: 1 Capsule(s) PO TID No S tart Date 03/19/2015 Inactive Zofran 4 mg Tab RxNorm: 814092 1 Tablet(s) PO Q4H prn nausea No Sta rt Date 04/13/2010 Inactive Premarin 0.625 mg/g Vaginal Cream RxNorm: 384196 1 Gram (s) VAG QHS 3 times a week No Start Date 09/22/2017 Inactive oxycodone 10 mg tablet RxNorm: 0370833 1-2 Tablet(s) PO QID as n eeded for pain No Start Date 11/04/2015 Inactive Nicoderm CQ 21 mg/24 hr daily Patch RxNorm: 399761 1 Applicatio n TD QD No Start Date 08/05/2015 Inactive Topamax 50 mg tablet RxNorm: 551905 1/2 Tablet(s) PO QH S for 1wk then 1 po q HS for 1wk then 2 po q HS No Start Date 06/27/2012 Inactive Chantix Starting Month Aníbal 0.5 mg (11)-1 mg (3x14) Tab s in a Dose Pack RxNorm: 703051 Tablet(s) PO as directed No Start Date 03/01/2011 Inactive Trulicity 0.75 mg/0.5 mL subcutaneous pen injector RxNorm: 1 666415 Milliliter(s) SQ No Start Date 07/04/2019 Inactive Medrol (Aníbal) 4 mg Tabs in a Dose Pack RxNorm: 726672 Tablet(s) PO N o Start Date 01/25/2012 Inactive as directed Duragesic 100 mcg/hr Transderm Patch RxNorm: 455948 2 A pplication TD Q48H for pain No Start Date 09/05/2013 Inactive Premarin 0.9 mg Tab RxNorm: 301455 1 Tablet(s) PO QD No Start Date Inactive Zithromax Z-Aníbal 250 mg Tab RxNorm: 988083 Tablet(s) PO as direc chinmay No Start Date 01/25/2012 Inactive ondansetron 8 mg disintegrating tablet RxNorm: 362656 1 Tablet(s) PO Q6H as needed No Start Date 10/10/2018 Inactive oxycodone 15 mg tablet RxNorm: 7714374 1 Tablet(s) PO QID as nee ded for pain No Start Date 03/05/2019 Inactive ProAir HFA 90 mcg/Actuation Aerosol Inhaler RxNorm: 568978 2 Puff(s) INH Q4H prn for wheezing or shortness of breath No Start Date 12/21/2011 Inactive pravastatin 40 mg tablet RxNorm: 495202 1/2 Tablet(s) PO QOD No Sta rt Date 04/09/2015 Inactive ipratropium-albuterol 0.5 mg-3 mg(2.5 mg base)/3 mL ne bulization soln RxNorm: 5940292 1 Unit Dose INH Q4H as needed No Start Date 09/09/2016 Inactive furosemide 40 mg tablet RxNorm: 652401 1 Tablet(s) PO QAM as ne eded No Start Date 09/24/2019 Inactive Vitamin D2 oral RxNorm: 4018 oral No Start Date 03/18/2015 Inacti ve pravastatin 40 mg tablet RxNorm: 923151 1/2 Tablet(s) PO QD No Star t Date 04/09/2015 Inactive ondansetron HCl 4 mg tablet RxNorm: 541986 1 Tablet(s) PO Q4H as needed for nausea and vomiting No Start Date 04/07/2016 Inactive furosemide 40 mg tablet RxNorm: 196927 2 Tablet(s) PO QAM No Start Date 09/26/2018 Inactive gabapentin 800 mg tablet RxNorm: 128254 1/2 Tablet(s) PO BID No Sta rt Date 06/21/2017 Inactive gabapentin 800 mg tablet RxNorm: 887066 1/2 Tablet(s) PO BID No Sta rt Date 07/05/2017 Inactive ProAir HFA 90 mcg/Actuation Aerosol Inhaler RxNorm: 061693 2 Puff(s) INH Q4H prn shortness of breath No Start Date 05/05/2010 Inactive scopolamine 1 mg over 3 days transdermal patch RxNorm: 70073 2 1 Application TD behind ear. Take off after three days No Start Date 10/10/2018 Inactive Metformin 500 mg Tab RxNorm: 229644 1 Tablet(s) PO QD No Start Date 0 05/05/2010 Inactive MS Contin 200 mg Tab RxNorm: 404513 1 Tablet(s) PO BID No Start Date 08/20/2011 Inactive Belladonna-Phenobarbital 48 mg tablet,extended release RxNor m: 2 Tablet(s) PO TID No Start Date 06/04/2016 Inactive Synthroid 112 mcg Tab RxNorm: 047944 1 Tablet(s) PO QD No Start Date 05/05/2010 Inactive Zegerid 40 mg-1.1 gram Cap RxNorm: 315922 1 Capsule(s) PO QD No Sta rt Date 01/25/2012 Inactive Premarin 0.625 mg/g Vaginal Cream RxNorm: 628586 VAG In sert 1gm vaginally at bedtime 3 times weekly No Start Date 01/17/2011 Inactive potassium chloride ER 20 mEq tablet,extended release RxNorm: 041095 1 Tablet(s) PO QD No Start Date 04/24/2019 Inactive methocarbamol 750 mg tablet RxNorm: 547689 2 Tablet(s) PO TID as needed for muscle spasm No Start Date 07/08/2014 Inactive Biaxin XL Aníbal 500 mg 24 hr Tab RxNorm: 290947 Tablet(s) PO as d irected No Start Date 04/24/2013 Inactive Vitamin D3 1,000 unit tablet RxNorm: 936385 3 Tablet(s) PO QD No St art Date 06/01/2017 Inactive Morphine SR 120 mg multiphase 24 hr Cap RxNorm: 292259 1 Capsul e(s) PO BID No Start Date 04/09/2010 Inactive Silvadene 1 % topical cream RxNorm: 987545 1 Application TOP BI D to burn area No Start Date 01/31/2017 Inactive Prednisone 20 mg Tab RxNorm: 939721 1 Tablet(s) PO TID for 3days then BID for 4days No Start Date 01/25/2012 Inactive gabapentin 600 mg tablet RxNorm: 388768 1 Tablet(s) PO BID No Start Date 01/21/2015 Inactive topiramate 50 mg tablet RxNorm: 398167 1 Tablet(s) PO QHS No Start Date 03/30/2018 Inactive Januvia 100 mg tablet RxNorm: 128957 1/2 Tablet(s) PO QD No Start D ate 12/25/2015 Inactive Diazepam 10 mg Tab RxNorm: 739070 1 Tablet(s) PO BID and PRN No Sta rt Date 06/08/2010 Inactive Medication Administered No Medication Administered data Immunizations Vaccine Codes Date Status Influenza CVX: 141 09/28/2012 Pneumovax Unknown 09/28/2012 Influenza (Adult) CVX: 141 09/02/2010 Results No Results data Procedures Procedure Codes Date THER/PROPH/DIAG INJ SC/IM CPT-4: 14407 07/10/2019 METHYLPREDNISOLONE INJECTION CPT-4: J2930 07/10/2019 URINALYSIS NONAUTO W/O SCOPE CPT-4: 18199 09/06/2018 URINE CULTURE/ COLONY COUNT CPT-4: 35180 09/06/2018 DRAIN/INJECT JOINT/BURSA CPT-4: 69505 04/29/2017 TRIAMCINOLONE ACET INJ NOS CPT-4: J3301 04/29/2017 DEXAMETHASONE SODIUM PHOS CPT-4: J1100 04/29/2017 INFLUENZA ASSAY W/OPTIC CPT-4: 35015 12/01/2016 RESPIRATORY CULTURE & STAIN CPT-4: 00588 07/09/2016 TB INTRADERMAL TEST CPT-4: 85593 04/21/2016 DRAIN/INJECT JOINT/BURSA CPT-4: 19642 11/07/2013 METHYLPREDNISOLONE 40 MG INJ CPT-4: J1030 11/07/2013 TRIAMCINOLONE ACET INJ NOS CPT-4: J3301 11/07/2013 DRAIN/INJECT JOINT/BURSA CPT-4: 34028 08/08/2013 METHYLPREDNISOLONE 40 MG INJ CPT-4: J1030 08/08/2013 TRIAMCINOLONE ACET INJ NOS CPT-4: J3301 08/08/2013 FLU VACCINE 3 YRS & > IM UP 64 CPT-4: 66227 2 PNEUMOCOCCAL VACC 23 ADITYA IM CPT-4: 52785 09/28/2012 IMMUNIZATION ADMIN CPT-4: 51222 09/28/2012 IMMUNIZATION ADMIN EACH ADD CPT-4: 59919 09/28/2012 FLU VACCINE 3 YRS & > IM UP 64 CPT-4: 28030 0 IMMUNIZATION ADMIN CPT-4: 27986 09/02/2010 METHYLPREDNISOLONE INJECTION CPT-4: J2930 05/07/2010 THER/PROPH/DIAG INJ SC/IM CPT-4: 60493 05/07/2010 Vital Signs Date Vital 11/29/2019 Blood [...] 1: 122/78 Code: 8480-6 BMI: 29.5 Code: 67547-3 Heart Rate 1: 76 bpm Height: 5'4" Respiratory Rate: 20 bpm SpO2: 96% Tempera ture: 37.0 (C) / 98.6 (F) Weight: 172 lbs 01/25/2019 Blood Pressure 1: 132/80 Code: 8480-6 BMI: 29.7 Code: 13529-1 Heart Rate 1: 84 bpm Height: 5'4" Respiratory Rate: 22 bpm SpO2: 98% Tempera ture: 36.9 (C) / 98.4 (F) Weight: 173 lbs 01/03/2019 Blood Pressure 1: 116/70 Code: 8480-6 BMI: 29.5 Code: 64414-4 Heart Rate 1: 92 bpm Height: 5'4" Respiratory Rate: 24 bpm SpO2: 98% Tempera ture: 37.2 (C) / 98.9 (F) Weight: 172 lbs 11/21/2018 Blood Pressure 1: 146/82 Code: 8480-6 BMI: 28.2 Code: 24413-2 Heart Rate 1: 88 bpm Height: 5'4" Respiratory Rate: 22 bpm SpO2: 97% Tempera ture: 36.9 (C) / 98.4 (F) Weight: 164 lbs 10/27/2018 Blood Pressure 1: 122/70 Code: 8480-6 BMI: 27.6 Code: 97106-7 Heart Rate 1: 88 bpm Height: 5'4" Respiratory Rate: 20 bpm SpO2: 96% Tempera ture: 36.8 (C) / 98.3 (F) Weight: 161 lbs 10/18/2018 Blood Pressure 1: 126/70 Code: 8480-6 BMI: 28.3 Code: 49857-5 Heart Rate 1: 76 bpm Height: 5'4" Respiratory Rate: 20 bpm SpO2: 95% Tempera ture: 37.0 (C) / 98.6 (F) Weight: 165 lbs 09/27/2018 Blood Pressure 1: 124/78 Code: 8480-6 BMI: 27.1 Code: 28704-7 Heart Rate 1: 88 bpm Height: 5'4" Respiratory Rate: 20 bpm SpO2: 98% Tempera ture: 36.4 (C) / 97.6 (F) Weight: 158 lbs 09/14/2018 Blood Pressure 1: 140/72 Code: 8480-6 BMI: 26.1 Code: 53027-9 Heart Rate 1: 100 bpm Height: 5'4" Respiratory Rate: 20 bpm SpO2: 97% Tempera ture: 36.9 (C) / 98.4 (F) Weight: 152 lbs 09/06/2018 Blood Pressure 1: 156/82 Code: 8480-6 BMI: 26.3 Code: 62128-3 Heart Rate 1: 100 bpm Height: 5'4" Respiratory Rate: 28 bpm SpO2: 95% Tempera ture: 37.2 (C) / 98.9 (F) Weight: 153 lbs 08/16/2018 Blood Pressure 1: 130/78 Code: 8480-6 Heart Rate 1: 87 bpm Respiratory Rate: 24 bpm SpO2: 94% Temperature: 36.9 (C) / 98.4 (F) We ight: 147 lbs 8 oz 07/07/2018 Blood Pressure 1: 116/78 Code: 8480-6 BMI: 22.7 Code: 97929-9 Heart Rate 1: 88 bpm Height: 5'4" Respiratory Rate: 22 bpm SpO2: 98% Tempera ture: 36.5 (C) / 97.7 (F) Weight: 132 lbs 05/31/2018 Blood Pressure 1: 128/78 Code: 8480-6 BMI: 22.3 Code: 46740-8 Heart Rate 1: 92 bpm Height: 5'4" Respiratory Rate: 26 bpm SpO2: 94% Tempera ture: 36.7 (C) / 98.1 (F) Weight: 130 lbs 03/31/2018 Blood Pressure 1: 136/78 Code: 8480-6 BMI: 21.5 Code: 40708-7 Heart Rate 1: 76 bpm Height: 5'4" Respiratory Rate: 24 bpm SpO2: 95% Tempera ture: 36.8 (C) / 98.3 (F) Weight: 125 lbs 01/26/2018 Blood Pressure 1: 142/64 Code: 8480-6 BMI: 20.6 Code: 17590-0 Heart Rate 1: 90 bpm Height: 5'4" Respiratory Rate: 24 bpm SpO2: 92% Tempera ture: 36.3 (C) / 97.3 (F) Weight: 120 lbs 10/26/2017 Blood Pressure 1: 124/70 Code: 8480-6 BMI: 20.3 Code: 42006-4 Heart Rate 1: 76 bpm Height: 5'4" Respiratory Rate: 22 bpm SpO2: 94% Tempera ture: 36.7 (C) / 98.1 (F) Weight: 118 lbs 09/23/2017 Blood Pressure 1: 106/70 Code: 8480-6 BMI: 19.2 Code: 74478-5 Heart Rate 1: 76 bpm Height: 5'4" Respiratory Rate: 20 bpm SpO2: 94% Tempera ture: 36.8 (C) / 98.3 (F) Weight: 112 lbs 08/12/2017 Blood Pressure 1: 116/68 Code: 8480-6 BMI: 20.1 Code: 26089-5 Heart Rate 1: 80 bpm Height: 5'4" Respiratory Rate: 22 bpm SpO2: 95% Tempera ture: 36.8 (C) / 98.2 (F) Weight: 117 lbs 07/06/2017 Blood Pressure 1: 136/78 Code: 8480-6 BMI: 20.6 Code: 21978-6 Heart Rate 1: 76 bpm Height: 5'4" Respiratory Rate: 24 bpm SpO2: 96% Tempera ture: 36.8 (C) / 98.2 (F) Weight: 120 lbs 06/02/2017 Blood Pressure 1: 112/70 Code: 8480-6 Heart Rate 1: 92 bpm Height: 5'4" Respiratory Rate: 24 bpm SpO2: 95% Temperature: 37.0 (C) / 98.6 (F) Weight: 04/29/2017 Blood Pressure 1: 94/52 Code: 8480-6 BMI: 19.6 C ode: 42494-3 Heart Rate 1: 84 bpm Height: 5'4" [...] 92/58 Code: 8480-6 BMI: 19.2 C ode: 26055-2 Heart Rate 1: 84 bpm Height: 5'4" Respiratory Rate: 26 bpm SpO2: 95% Tempera ture: 36.7 (C) / 98.0 (F) Weight: 112 lbs 12/01/2016 Blood Pressure 1: 114/70 Code: 8480-6 BMI: 19.2 Code: 36728-5 Heart Rate 1: 96 bpm Height: 5'4" Respiratory Rate: 28 bpm SpO2: 93% Tempera ture: 38.3 (C) / 101.0 (F) Weight: 112 lbs 10/27/2016 Blood Pressure 1: 126/66 Code: 8480-6 BMI: 19.6 Code: 03892-6 Heart Rate 1: 92 bpm Height: 5'4" Respiratory Rate: 28 bpm SpO2: 90% Tempera ture: 36.8 (C) / 98.3 (F) Weight: 114 lbs 09/09/2016 Blood Pressure 1: 126/74 Code: 8480-6 Heart Rate 1: 104 bpm Height: 5'4" Respiratory Rate: 32 bpm SpO2: 88% Temperature: 37 .2 (C) / 99.0 (F) 08/26/2016 Blood Pressure 1: 134/82 Code: 8480-6 BMI: 22.0 Code: 26552-7 Heart Rate 1: 84 bpm Height: 5'4" Respiratory Rate: 24 bpm SpO2: 94% Tempera ture: 36.8 (C) / 98.3 (F) Weight: 128 lbs 05/21/2016 Blood Pressure 1: 142/80 Code: 8480-6 BMI: 21.6 Code: 51789-3 Heart Rate 1: 104 bpm Height: 5'4" Respiratory Rate: 22 bpm SpO2: 93% Tempera ture: 36.0 (C) / 96.8 (F) Weight: 126 lbs 03/25/2016 Blood Pressure 1: 126/62 Code: 8480-6 Heart Rate 1: 88 bpm Respiratory Rate: 20 bpm SpO2: 92% Temperature: 36.8 (C) / 98.3 (F) We ight: 130 lbs 01/23/2016 Blood Pressure 1: 146/82 Code: 8480-6 BMI: 24.1 Code: 53232-6 Heart Rate 1: 92 bpm Height: 5'3" Respiratory Rate: 22 bpm Temperature: 37 .1 (C) / 98.8 (F) Weight: 136 lbs 12/26/2015 Blood Pressure 1: 142/78 Code: 8480-6 BMI: 24.6 Code: 74723-2 Heart Rate 1: 78 bpm Height: 5'3" Respiratory Rate: 20 bpm Temperature: 36 .7 (C) / 98.1 (F) Weight: 139 lbs 12/03/2015 Blood Pressure 1: 126/60 Code: 8480-6 BMI: 24.6 Code: 82469-9 Heart Rate 1: 100 bpm Height: 5'3" Respiratory Rate: 28 bpm Temperature: 37 .6 (C) / 99.6 (F) Weight: 139 lbs 09/10/2015 Blood Pressure 1: 124/64 Code: 8480-6 BMI: 23.7 Code: 11699-5 Heart Rate 1: 88 bpm Height: 5'3" Respiratory Rate: 24 bpm SpO2: 95% Tempera ture: 36.4 (C) / 97.6 (F) Weight: 134 lbs 08/06/2015 Blood Pressure 1: 114/76 Code: 8480-6 BMI: 23.2 Code: 47474-1 Heart Rate 1: 88 bpm Height: 5'3" Respiratory Rate: 22 bpm Temperature: 36 .6 (C) / 97.9 (F) Weight: 131 lbs 07/18/2015 Blood Pressure 1: 144/78 Code: 8480-6 BMI: 23.7 Code: 61665-3 Heart Rate 1: 84 bpm Height: 5'3" Respiratory Rate: 20 bpm Temperature: 37 .2 (C) / 99.0 (F) Weight: 134 lbs 04/10/2015 Blood Pressure 1: 110/64 Code: 8480-6 Heart Rate 1: 80 bpm Height: Respiratory Rate: 20 bpm Temperature: 37.1 (C) / 98.8 (F) Weight: 03/05/2015 Blood Pressure 1: 136/80 Code: 8480-6 BMI: 23.9 Code: 54772-7 Heart Rate 1: 76 bpm Height: 5'3" Respiratory Rate: 24 bpm Temperature: 37 .0 (C) / 98.6 (F) Weight: 135 lbs 01/30/2015 Blood Pressure 1: 142/80 Code: 8480-6 BMI: 23.0 Code: 83175-4 Heart Rate 1: 96 bpm Height: 5'3" Respiratory Rate: 22 bpm Temperature: 36 .2 (C) / 97.2 (F) Weight: 130 lbs 01/02/2015 Blood Pressure 1: 124/70 Code: 8480-6 BMI: 23.4 Code: 77251-7 Heart Rate 1: 84 bpm Height: 5'3" Respiratory Rate: 24 bpm SpO2: 95% Tempera ture: 36.9 (C) / 98.5 (F) Weight: 132 lbs 10/03/2014 Blood Pressure 1: 106/68 Code: 8480-6 BMI: 22.5 Code: 39731-6 Heart Rate 1: 88 bpm Height: 5'3" Respiratory Rate: 24 bpm Temperature: 37 .0 (C) / 98.6 (F) Weight: 127 lbs 08/27/2014 Blood Pressure 1: 124/68 Code: 8480-6 BMI: 21.1 Code: 39741-2 Heart Rate 1: 88 bpm Height: 5'3" [...] 1: 120/70 Code: 8480-6 BMI: 19.2 Code: 78554-2 Heart Rate 1: 70 bpm Height: 5'4" Respiratory Rate: 20 bpm Temperature: 36 .9 (C) / 98.4 (F) Weight: 112 lbs 06/28/2013 Blood Pressure 1: 102/68 Code: 8480-6 BMI: 19.6 Code: 85042-2 Heart Rate 1: 76 bpm Height: 5'4" Respiratory Rate: 20 bpm Temperature: 36 .8 (C) / 98.2 (F) Weight: 114 lbs 05/31/2013 Blood Pressure 1: 106/70 Code: 8480-6 BMI: 18.9 Code: 69655-4 Heart Rate 1: 100 bpm Height: 5'4" Respiratory Rate: 20 bpm Temperature: 36 .4 (C) / 97.6 (F) Weight: 110 lbs 05/03/2013 Blood Pressure 1: 126/70 Code: 8480-6 BMI: 19.1 Code: 30911-8 Heart Rate 1: 88 bpm Height: 5'4" Respiratory Rate: 20 bpm Temperature: 37 .1 (C) / 98.8 (F) Weight: 111 lbs 04/25/2013 Blood Pressure 1: 114/68 Code: 8480-6 BMI: 19.4 Code: 64200-5 Heart Rate 1: 92 bpm Height: 5'4" Respiratory Rate: 24 bpm SpO2: 96% Tempera ture: 37.7 (C) / 99.8 (F) Weight: 113 lbs 03/08/2013 Blood Pressure 1: 94/68 Code: 8480-6 BMI: 21.3 C ode: 35227-1 Heart Rate 1: 88 bpm Height: 5'4" Respiratory Rate: 24 bpm Temperature: 37 .0 (C) / 98.6 (F) Weight: 124 lbs 02/07/2013 Blood Pressure 1: 106/64 Code: 8480-6 BMI: 21.8 Code: 94063-1 Heart Rate 1: 84 bpm Height: 5'4" Respiratory Rate: 22 bpm Temperature: 36 .8 (C) / 98.2 (F) Weight: 127 lbs 01/10/2013 Blood Pressure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 Tylenol/Motrin prn fever or bodyaches. Notify if worsening symptoms. Medrol Dose Pack Smoking Cessation and recommend get rid of cat Add Reglan for stomach 07/15/2011 Appointment: Vika Renteriatel: [address] [place], [place] [id number] ACUTE ILLNESS 07/15/2011 Patient Education: Patient Medication Summary Completed 07/15/2011 Appointment: Vika Renteria WPtel: [address] [place] [address] FOLLOW UP 04/02/2011 Visit Plan: SVN with Albuterol 0.083% Q4 hrs and Q2hrs prn. Cont smoking Cessation 03/19/2011 Appointment: Vika Renteria WPtel: [address] [place] [address] ACUTE ILLNESS 03/19/2011 Patient Education: Patient Medication Summary Completed 03/19/2011 Visit Plan: Repeat Biaxin XL Cont curren t meds Repeat Chantix 01/28/2011 Appointment: Vika Renteria WPtel: [address] [place] [address] FOLLOW UP 01/28/2011 Patient Education: Patient Medication Summary Completed 01/28/2011 Patient Education: Chantix Unbranded Comp leted 01/28/2011 Appointment: Vika Renteria WPtel: [address] [place] [address] FOLLOW UP 01/14/2011 Visit Plan: Finish abx Diflucan for vagi nitis Premarin vaginal cream Smoking cessation 12/17/2010 Appointment: Vika Renteria WPtel: [address] [place] [address] Follow Up 12/17/2010 Patient Education: Patient Medication Summary Completed 12/17/2010 Appointment: Vika Renteriatel: [address] [place] [address] FOLLOW UP 11/06/2010 Visit Plan: Start PT Use SVNs every 4hrs Smoking Cessation Change MS Contin to 200mg q 12hrs 2010 Appointment: Vika Renteriatel: [address] [place] [address] FOLLOW UP 2010 Patient Education: Patient Medication Summary Completed 2010 Visit Plan: Prednisone taper for pain an d lungs 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 Increase fluoxetine to 60mg QD for acute stress reaction 10/02/2010 Appointment: Vika Renteria WPtel: [address] [place], [place] [phone] [place] FOLLOW UP 10/02/2010 Patient Education: Patient Medication Summary Completed 10/02/2010 Visit Plan: Check CT Head, Cervical, Tho racic, and Lumbar Spine Cont current meds Bactrim for left toe 09/24/2010 Appointment: Vika Renteria WPtel: [address] [place] [address] [place] CHECK UP 09/24/2010 Patient Education: Patient Medication Summary Completed 09/24/2010 Appointment: Vika Renteria WPtel: [address] [place] [address] FOLLOW UP 09/02/2010 Patient Education: Patient Medication Summary Completed 09/02/2010 Visit Plan: Return for 2nd epidural Obse rve right leg lesion Cont Symbicort and Spiriva 07/14/2010 Appointment: Vika Renteria WPtel: [address] [place] [address] FOLLOW UP 07/14/2010 Patient Education: Patient Medication Summary Completed 07/14/2010 Appointment: Vika Renteria WPtel: [address] [place], [place] [phone] [place] FOLLOW UP 05/27/2010 Appointment: Vika Renteria WPtel: [address] [place], [place] [phone] [place] FOLLOW UP 05/14/2010 Visit Plan: SVN with Albuterol 0.083% Q4 hrs and Q2hrs prn. Restart Spiriva Smoking Cessation 05/07/2010 Appointment: Vika Renteria WPtel: [address] [place], [place] [phone] [place] FOLLOW UP 05/07/2010 Patient Education: Patient Medication Summary Completed 05/07/2010 Appointment: Vika Renteria WPtel: [address] [place], [place] [phone] ACUTE ILLNESS 04/08/2010 Patient Education: Patient Medication Summary Completed 04/08/2010 [facility]: [facility] [phone] [id number] [place] Referral Completed Referral: Jaylan Matute WPtel: [address] [id number] [place] Referral Initiated Referral: [facility] [address] [id number] [place] Referral Appointment Requested Instructions Comment . [...] prn breakthrough pain . Discussed that some [employer] produc ts are petroleum free If [...]
--- OUTSIDE RECORDS SUMMARY | 2020-04-24 22:06 | XMS REPORT | CCD ---
Author Author Yana Renteria D.O. Organization [facility] Address [address] [place] [address] Phone Care Team Providers Care Crepe Sole Scourer Name Role Phone Vika Renteria D.O., PP Unavailable CCM Unavailable Summary Purpose Interface Exchange Insurance Providers Payer name Policy type / Coverage type Covered republican ID Effective Begin Date Effective End Date [employer] [facility] [place] Medicaid [id number] 2018 U nknown Family History Family History data not found Social History Social History Element Codes Description Effective Dates Marital status Unknown 06/28/[address]: [id number] Currently smokes tobacco 05/2013 Allergies, Adverse Reactions, [...] ProAir HFA 90 mcg/actuation aerosol inhaler RxNorm: 384752 INHALE ONE PUFF BY MOUTH EVERY 4 HOURS FOR WHEEZING OR FOR SHORTNESS OF BREATH 04/11/2020 No Stop Date Active fluoxetine 20 mg capsule RxNorm: 670872 1 Capsule(s) Oral QD 201905/10/2020 Active fluoxetine 20 mg capsule RxNorm: 193283 1 Capsule(s) Oral QD 201904/09/2020 Inactive levothyroxine 25 mcg tablet RxNorm: 045173 TAKE ONE TAB LET BY MOUTH EVERY MORNING 04/09/2020 No Stop Date Active metformin 500 mg tablet RxNorm: 027417 1 Tablet(s) Oral QD 04/09/20 20 07/08/2020 Active MS Contin 200 mg tablet,extended release RxNorm: 096886 1 Tablet(s) Oral two times a day 03/19/2020 04/17/2020 Active Relistor 150 mg tablet RxNorm: 7421841 TAKE THREE TABLETS BY BENOIT TH DAILY 03/13/2020 No Stop Date Active cyclobenzaprine 10 mg tablet RxNorm: 652147 TAKE ONE TA BLET BY MOUTH THREE TIMES A DAY NEEDED 03/13/2020 No Stop Date Active furosemide 40 mg tablet RxNorm: 009466 TAKE ONE TABLET BY MOUTH EVERY MORNING 03/13/2020 No Stop Date Active hydroxyzine HCl 50 mg tablet RxNorm: 380723 1 Tablet(s) Oral two times a day to take with morphine--replaces benadryl 03/12/2020 04/11/2020 Inactive prednisone 1 mg tablet RxNorm: 949179 1 Tablet(s) Oral two times a day to take with hydroxyzine 03/12/2020 No Stop Date Active prednisolone 5 mg tablet RxNorm: 032868 1 Tablet(s) Oral two ti mes a day 02/22/2020 03/23/2020 Inactive prednisolone 5 mg tablet RxNorm: 296885 1 Tablet(s) Oral two ti mes a day 02/22/2020 02/21/2020 Inactive Symbicort 160 mcg-4.5 mcg/actuation HFA aerosol inhaler RxNo rm: 5285022 INHALE TWO PUFFS BY MOUTH TWICE A DAY 02/19/2020 No Stop Date Active Daliresp 500 mcg tablet RxNorm: 9684631 TAKE ONE TABLET BY MOUTH DAILY 02/19/2020 No Stop Date Active prednisone 20 mg tablet RxNorm: 188562 1 Tablet(s) Oral two yumi es a day 02/13/2020 02/20/2020 Inactive oxycodone 30 mg tablet RxNorm: 3169301 1 Tablet(s) Oral four times a day replaces MS Contin 02/13/2020 02/22/2020 Inactive levothyroxine 25 mcg tablet RxNorm: 755501 TAKE ONE TAB LET BY MOUTH EVERY MORNING 02/09/2020 04/08/2020 Inactive MS Contin 200 mg tablet,extended release RxNorm: 689735 1 Tablet(s) Oral two times a day 02/01/2020 03/01/2020 Inactive Premarin 0.45 mg tablet RxNorm: 315331 TAKE ONE TABLET BY MOUTH DAILY 01/31/2020 No Stop Date Active cyclobenzaprine 10 mg tablet RxNorm: 272546 TAKE ONE TA BLET BY MOUTH THREE TIMES A DAY NEEDED 01/31/2020 03/12/2020 Inactive metformin 500 mg tablet RxNorm: 200982 1 Tablet(s) Oral QD 01/31/2004/08/2020 Inactive gabapentin 300 mg capsule RxNorm: 702844 TAKE ONE CAPSULE BY [facility] TWICE A DAY 01/16/2020 No Stop Date Active potassium chloride ER 20 mEq tablet,extended release RxNorm: 792982 TAKE ONE TABLET BY MOUTH DAILY 01/08/2020 07/05/2020 Active ProAir HFA 90 mcg/actuation aerosol inhaler RxNorm: 123644 INHALE ONE PUFF BY MOUTH EVERY 4 HOURS FOR WHEEZING OR FOR SHORTNESS OF BREATH 01/04/2020 04/10/2020 Inactive metformin 500 mg tablet RxNorm: 587261 1 Tablet(s) Oral QD 01/04/20 20 04/09/2020 Inactive MS Contin 200 mg tablet,extended release RxNorm: 105066 1 Tablet(s) Oral two times a day 01/02/2020 01/31/2020 Inactive Pulmicort 1 mg/2 mL suspension for nebulization RxNorm: 6168 19 USE ONE VIAL VIA NEBULIZER BY MOUTH TWICE A DAY 12/21/2019 No Stop Date Active furosemide 40 mg tablet RxNorm: 849672 TAKE ONE TABLET BY MOUTH EVERY MORNING NEEDED 12/20/2019 03/12/2020 Inactive levothyroxine 25 mcg tablet RxNorm: 478182 TAKE ONE TAB LET BY MOUTH EVERY MORNING 12/20/2019 02/08/2020 Inactive MS Contin 200 mg tablet,extended release RxNorm: 439168 1 Tablet(s) Oral two times a day 12/05/2019 01/01/2020 Inactive Medrol (Aníbal) 4 mg tablets in a dose pack RxNorm: 271523 6 Tablet(s) Oral QD --then as directed 11/30/2019 12/05/2019 Inactive MS Contin 200 mg tablet,extended release RxNorm: 488474 1 Tablet(s) Oral two times a day 11/29/2019 12/04/2019 Inactive cyclobenzaprine 10 mg tablet RxNorm: 940182 TAKE ONE TA BLET BY MOUTH THREE TIMES A DAY NEEDED 11/21/2019 01/30/2020 Inactive MS Contin 200 mg tablet,extended release RxNorm: 146752 1 Tablet(s) Oral two times a day replaces 100mg dose 11/03/2019 11/02/2019 Inactive MS Contin 200 mg tablet,extended release RxNorm: 015483 1 Tablet(s) Oral two times a day replaces 100mg dose 11/03/2019 11/29/2019 Inactive ferrous sulfate 325 mg (65 mg iron) tablet RxNorm: 773877 1 Tab let(s) Oral QD 10/30/2019 No Stop Date Active MS Contin 100 mg tablet,extended release RxNorm: 721692 1 Table t(s) Oral QD 10/30/2019 10/29/2019 Inactive MS Contin 100 mg tablet,extended release RxNorm: 601798 1 Table t(s) Oral QD 10/30/2019 11/02/2019 Inactive pantoprazole 40 mg tablet,delayed release RxNorm: 587343 1 Tabl et(s) Oral QD 10/25/2019 No Stop Date Active Minipress 2 mg capsule RxNorm: 255489 1 Capsule(s) Oral QAM and 3 at bedtime 10/25/2019 No Stop Date Active Lancets, Super Thin RxNorm: 1 Unit Dose Miscellaneous QD 9 11/27/2020 Active Relistor 150 mg tablet RxNorm: 7690418 TAKE THREE TABLETS BY BENOIT TH DAILY 10/25/2019 03/12/2020 Inactive oxycodone 15 mg tablet RxNorm: 7082137 1 Tablet(s) Oral four times a day as needed for pain 10/25/2019 11/28/2019 Inactive metformin 500 mg tablet RxNorm: 778743 1 Tablet(s) Oral QD 10/25/2001/03/2020 Inactive levothyroxine 25 mcg tablet RxNorm: 345961 1 Tablet(s) Oral QAM 02/201912/19/2019 Inactive levothyroxine 25 mcg tablet RxNorm: 782391 1 Tablet(s) Oral QAM 02/201910/24/2019 Inactive MS Contin 100 mg tablet,extended release RxNorm: 494701 1 Tablet(s) Oral two times a day replaces fentanyl 10/25/2019 10/25/2019 Inactive Cymbalta 60 mg capsule,delayed release RxNorm: 878646 1 Capsule (s) Oral QAM 10/25/2019 04/09/2020 Inactive Cymbalta 30 mg capsule,delayed release RxNorm: 444842 1 Capsule (s) Oral QAM 10/25/2019 04/09/2020 Inactive Premarin 0.45 mg tablet RxNorm: 473139 TAKE ONE TABLET BY MOUTH DAILY 10/24/2019 01/30/2020 Inactive Duragesic 100 mcg/hr transdermal patch RxNorm: 358223 2 Application TD Q48H for pain 10/18/2019 10/24/2019 Inactive gabapentin 300 mg capsule RxNorm: 859507 TAKE ONE CAPSULE BY MO [facility] TWICE A DAY 10/16/2019 01/15/2020 Inactive cyclobenzaprine 10 mg tablet RxNorm: 147318 TAKE ONE TA BLET BY MOUTH THREE TIMES A DAY NEEDED 09/27/2019 11/20/2019 Inactive Relistor 150 mg tablet RxNorm: 1397764 TAKE THREE TABLETS BY BENOIT TH DAILY 09/25/2019 10/24/2019 Inactive ProAir HFA 90 mcg/actuation aerosol inhaler RxNorm: 057205 INHALE ONE PUFF BY MOUTH EVERY 4 HOURS FOR WHEEZING OR FOR SHORTNESS OF BREATH 09/25/2019 01/03/2020 Inactive furosemide 40 mg tablet RxNorm: 960000 1 Tablet(s) Oral QAM as needed 09/25/2019 09/25/2019 Inactive oxycodone 15 mg tablet RxNorm: 9175507 1 Tablet(s) PO QID as nee ded for pain 09/21/2019 10/24/2019 Inactive Duragesic 100 mcg/hr transdermal patch RxNorm: 207479 2 Application TD Q48H for pain 09/19/2019 10/17/2019 Inactive Daliresp 500 mcg tablet RxNorm: 2951536 1 Tablet(s) Oral QD 019 02/18/2020 Inactive Relistor 150 mg tablet RxNorm: 4697588 TAKE THREE TABLETS BY BENOIT TH DAILY 07/25/2019 07/30/2019 Inactive cyclobenzaprine 10 mg tablet RxNorm: 264454 TAKE ONE TA BLET BY MOUTH THREE TIMES A DAY NEEDED 07/25/2019 09/22/2019 Inactive potassium chloride ER 20 mEq tablet,extended release RxNorm: 016392 TAKE ONE TABLET BY MOUTH DAILY 07/25/2019 01/07/2020 Inactive fluoxetine 40 mg capsule RxNorm: 159197 TAKE ONE CAPSULE BY BENOIT TH EVERY MORNING 07/11/2019 10/24/2019 Inactive Medrol (Aníbal) 4 mg tablets in a dose pack RxNorm: 196697 6 Tablet(s) PO QD --then as directed 07/10/2019 07/15/2019 Inactive omeprazole 40 mg capsule,delayed release RxNorm: 609841 1 Capsule(s) PO QD for stomach TAKE ONE CAPSULE BY MOUTH DAILY 07/10/2019 10/24/2019 Inactive Augmentin 875 mg-125 mg tablet RxNorm: 244493 1 Tablet(s) PO BID 07/16/2019 Inactive Trulicity 0.75 mg/0.5 mL subcutaneous pen injector RxNorm: 1 579925 0.75 Milliliter(s) SQ weekly 07/05/2019 10/24/2019 Inactive Compazine 10 mg tablet RxNorm: 035988 TAKE ONE TABLET B Y MOUTH FOUR TIMES A DAY NEEDED FOR NAUSEA 06/20/2019 07/19/2019 Inactive ProAir HFA 90 mcg/actuation aerosol inhaler RxNorm: 361159 INHALE ONE PUFF BY MOUTH EVERY 4 HOURS FOR WHEEZING OR FOR SHORTNESS OF BREATH 06/20/2019 06/23/2019 Inactive Daliresp 500 mcg tablet RxNorm: 7582880 TAKE ONE TABLET BY MOUTH DAILY 06/12/2019 09/10/2019 Inactive sjscgjjx-yiyrpiyjy-nsaaisakr 3.5 mg/mL-10,000 unit/mL- 1 % ear solution RxNorm: 601648 4 Drop(s) otic (ear) TID to left ear 06/05/2019 10/24/2019 Inac tive furosemide 40 mg tablet RxNorm: 666493 TAKE ONE TABLET BY MOUTH EVERY MORNING 05/26/2019 07/09/2019 Inactive Duragesic 100 mcg/hr transdermal patch RxNorm: 622332 2 Application TD Q48H for pain 05/16/2019 06/14/2019 Inactive oxycodone 15 mg tablet RxNorm: 2984941 1 Tablet(s) PO QID as nee ded for pain 05/10/2019 09/20/2019 Inactive doxycycline hyclate 100 mg capsule RxNorm: 5393412 1 Capsule(s) PO BID 05/03/2019 05/12/2019 Inactive prednisone 20 mg tablet RxNorm: 987894 1 Tablet(s) PO T ID for 3 days then 1 po BID for 3 days then one daily for 3 days 05/03/2019 07/11/2019 Inactiv e Ozempic 0.25 mg or 0.5 mg (2 mg/1.5 mL) subcutaneous p en injector RxNorm: 2702219 0.5 Milligram(s) SQ QW 05/03/2019 07/09/2019 Inactive fluconazole 100 mg tablet RxNorm: 821876 1 Tablet(s) PO QD 05/03/20 19 05/07/2019 Inactive Premarin 0.45 mg tablet RxNorm: 270801 TAKE ONE TABLET BY MOUTH DAILY 05/03/2019 10/23/2019 Inactive potassium chloride ER 20 mEq tablet,extended release RxNorm: 567763 1 Tablet(s) PO QD 04/27/2019 07/25/2019 Inactive potassium chloride ER 20 mEq tablet,extended release RxNorm: 142609 1 Tablet(s) PO QD 04/25/2019 04/26/2019 Inactive Compazine 10 mg tablet RxNorm: 481882 1 Tablet(s) PO QID as nee ded for nausea 04/25/2019 05/04/2019 Inactive ProAir HFA 90 mcg/actuation aerosol inhaler RxNorm: 827471 INHALE ONE PUFF BY MOUTH EVERY 4 HOURS FOR WHEEZING OR FOR SHORTNESS OF BREATH 04/12/2019 06/10/2019 Inactive Medrol (Aníbal) 4 mg tablets in a dose pack RxNorm: 948762 6 Tablet(s) PO QD --then as directed 04/11/2019 04/16/2019 Inactive Symbicort 160 mcg-4.5 mcg/actuation HFA aerosol inhaler RxNo rm: 2787252 2 Puff(s) INH BID 04/10/2019 10/06/2019 Inactive levothyroxine 50 mcg tablet RxNorm: 779230 1 Tablet(s) PO QD 201810/24/2019 Inactive gabapentin 300 mg capsule RxNorm: 278758 1 Capsule(s) PO BID 201810/02/2019 Inactive Symbicort 160 mcg-4.5 mcg/actuation HFA aerosol inhaler RxNo rm: 7889543 2 Puff(s) INH BID 04/06/2019 04/09/2019 Inactive oxycodone 15 mg tablet RxNorm: 1204890 1 Tablet(s) PO QID as nee ded for pain 04/05/2019 05/09/2019 Inactive levothyroxine 50 mcg tablet RxNorm: 573627 1 Tablet(s) PO QD 201804/09/2019 Inactive furosemide 40 mg tablet RxNorm: 373381 TAKE ONE TABLET BY MOUTH EVERY MORNING 03/21/2019 04/19/2019 Inactive levothyroxine 50 mcg tablet RxNorm: 909930 TAKE ONE TABLET BY M OUTH DAILY 03/21/2019 03/27/2019 Inactive Duragesic 100 mcg/hr transdermal patch RxNorm: 679394 2 Application TD Q48H for pain 03/13/2019 04/11/2019 Inactive oxycodone 15 mg tablet RxNorm: 2579405 1 Tablet(s) PO QID as nee ded for pain 03/06/2019 04/04/2019 Inactive Relistor 150 mg tablet RxNorm: 5905707 3 Tablet(s) PO QD 02/28/2019 0 05/28/2019 Inactive cyclobenzaprine 10 mg tablet RxNorm: 363311 1 Tablet(s) PO TID as needed 02/28/2019 05/28/2019 Inactive phentermine 37.5 mg tablet RxNorm: 347670 1 Tablet(s) PO QAM 201803/15/2019 Inactive Duragesic 100 mcg/hr transdermal patch RxNorm: 645851 2 Application TD Q48H for pain 02/09/2019 03/10/2019 Inactive Daliresp 500 mcg tablet RxNorm: 4395628 TAKE ONE TABLET BY MOUTH DAILY 01/31/2019 05/30/2019 Inactive Premarin 0.45 mg tablet RxNorm: 825202 1 Tablet(s) PO QD 01/31/2019 0 04/30/2019 Inactive fluoxetine 40 mg capsule RxNorm: 688921 Capsule(s) TAKE ONE CAPSULE BY MOUTH EVERY MORNING 01/31/2019 04/30/2019 Inactive levothyroxine 50 mcg tablet RxNorm: 059217 1 Tablet(s) PO QD 201804/10/2019 Inactive follow up in 3 weeks levothyroxine 50 mcg tablet RxNorm: 793790 1 Tablet(s) PO QD 201801/25/2019 Inactive follow up in 3 weeks potassium chloride ER 20 mEq tablet,extended release RxNorm: 458460 2 Tablet(s) PO BID 01/23/2019 01/08/2020 Inactive Synthroid 50 mcg tablet RxNorm: 659389 TAKE ONE TABLET BY MOUTH DAILY 01/16/2019 10/24/2019 Inactive potassium chloride ER 20 mEq tablet,extended release RxNorm: 917163 2 Tablet(s) PO BID 01/04/2019 01/22/2019 Inactive ProAir HFA 90 mcg/actuation aerosol inhaler RxNorm: 987413 INHALE ONE PUFF BY MOUTH EVERY 4 HOURS FOR WHEEZING OR SHORTNESS OF BREATH 01/04/201902/20 Inactive Request already responded to by other me ans (e.g. phone or fax) ProAir HFA 90 mcg/actuation aerosol inhaler RxNorm: 6966887 INHALE ONE PUFF BY MOUTH EVERY 4 HOURS FOR WHEEZING OR SHORTNESS OF BREATH 01/02/201912/23 Inactive gabapentin 300 mg capsule RxNorm: 136687 TAKE ONE CAPSULE BY MO UTH TWICE A DAY 12/30/2018 04/06/2019 Inactive furosemide 40 mg tablet RxNorm: 477691 1 Tablet(s) PO QAM 12/26/2018 02/23/2019 Inactive Compazine 10 mg tablet RxNorm: 644475 1 Tablet(s) PO QID as nee ded for nausea 12/07/2018 12/16/2018 Inactive metolazone 2.5 mg tablet RxNorm: 027838 TAKE ONE TABLET BY MOUT H EVERY MORNING 12/05/2018 01/03/2019 Inactive metformin ER 500 mg tablet,extended release 24 hr RxNorm: 86 0975 TAKE ONE TABLET BY MOUTH DAILY 12/05/2018 01/31/2020 Inactive Synthroid 50 mcg tablet RxNorm: 067483 1 Tablet(s) PO QD 11/25/2018 0 01/03/2019 Inactive DC any other synthroid strengths. Should be 50mcg only cyclobenzaprine 10 mg tablet RxNorm: 535746 TAKE ONE TA BLET BY MOUTH THREE TIMES A DAY NEEDED 11/09/2018 02/06/2019 Inactive metolazone 2.5 mg tablet RxNorm: 152133 1 Tablet(s) PO QAM repl aces 5mg dose 11/02/2018 12/01/2018 Inactive potassium chloride ER 20 mEq tablet,extended release RxNorm: 293862 2 Tablet(s) PO QD 2018 01/02/2019 Inactive Compazine 10 mg tablet RxNorm: 112303 1 Tablet(s) PO QID as nee ded for nausea 10/18/2018 12/07/2018 Inactive furosemide 40 mg tablet RxNorm: 839062 1 Tablet(s) PO QAM 10/12/2018 12/10/2018 Inactive ondansetron 8 mg disintegrating tablet RxNorm: 273673 1 Tablet(s) PO Q6H as needed 10/11/2018 10/17/2018 Inactive scopolamine 1 mg over 3 days transdermal patch RxNorm: 72897 2 1 Application TD behind ear. Take off after three days 10/11/2018 01/02/2019 Inactive furosemide 40 mg tablet RxNorm: 697840 1 Tablet(s) PO QAM 10/10/2018 12/26/2018 Inactive metolazone 5 mg tablet RxNorm: 870907 1 Tablet(s) PO QAM 10/06/2018 1 01/03/2018 Inactive metolazone 5 mg tablet RxNorm: 440129 1 Tablet(s) PO QAM 10/06/2018 1 12/05/2017 Inactive Xtampza ER 36 mg capsule sprinkle RxNorm: 7941769 1 Capsule(s) P O BID 10/05/2018 01/02/2019 Inactive Xtampza ER 36 mg capsule sprinkle RxNorm: 9957362 1 Capsule(s) P O BID 10/05/2018 02/12/2019 Inactive omeprazole 40 mg capsule,delayed release RxNorm: 057711 TAKE ONE CAPSULE BY MOUTH DAILY 10/03/2018 12/31/2018 Inactive Duragesic 100 mcg/hr transdermal patch RxNorm: 212386 2 Application TD Q48H for pain 09/30/2018 10/29/2018 Inactive Synthroid 50 mcg tablet RxNorm: 101244 1 Tablet(s) PO QD 09/29/2018 0 11/25/2018 Inactive DC any other synthroid strengths. Should be 50mcg only Synthroid 50 mcg tablet RxNorm: 270610 1 Tablet(s) PO QD 09/29/2018 1 11/28/2017 Inactive furosemide 40 mg tablet RxNorm: 001991 2 Tablet(s) PO Q AM for 1 week then every other day for 2 weeks 09/27/2018 10/12/2018 Inactive fluoxetine 40 mg capsule RxNorm: 390211 2 Capsule(s) PO QD 09/27/20 18 10/17/2018 Inactive potassium chloride ER 20 mEq tablet,extended release RxNorm: 851318 2 Tablet(s) PO QD for 1 week then every other day for 2 weeks 09/27/2018 2018 Inactive ProAir HFA 90 mcg/actuation aerosol inhaler RxNorm: 3325943 INHALE ONE PUFF BY MOUTH EVERY 4 HOURS FOR WHEEZING OR SHORTNESS OF BREATH 09/26/201811/23 Inactive Synthroid 75 mcg tablet RxNorm: 742868 1 Tablet(s) PO QD 09/09/2018 1 Inactive Synthroid 75 mcg tablet RxNorm: 133805 1 Tablet(s) PO QD 09/09/201811/28/2017 Inactive furosemide 40 mg tablet RxNorm: 519460 1 Tablet(s) PO QD 09/06/2018 1 Inactive potassium chloride ER 20 mEq tablet,extended release RxNorm: 102538 1 Tablet(s) PO QD 09/06/2018 09/19/2018 Inactive Duragesic 100 mcg/hr transdermal patch RxNorm: 497631 2 Application TD Q48H for pain 08/30/2018 09/28/2018 Inactive gabapentin 300 mg capsule RxNorm: 726092 TAKE ONE CAPSULE BY MO UT TWICE A DAY 08/23/2018 12/20/2018 Inactive Daliresp 500 mcg tablet RxNorm: 1992567 TAKE ONE TABLET BY MOUTH DAILY 08/23/2018 01/19/2019 Inactive Pulmicort 1 mg/2 mL suspension for nebulization RxNorm: 6168 19 USE ONE VIAL VIA NEBULIZER BY MOUTH TWICE A DAY 08/23/2018 07/11/2019 Inactive Synthroid 88 mcg tablet RxNorm: 354605 1 Tablet(s) PO QD 08/19/2018 Inactive Medrol (Aníbal) 4 mg tablets in a dose pack RxNorm: 494857 Tablet(s) PO take as directed 08/16/2018 09/05/2018 Inactive Relistor 150 mg tablet RxNorm: 8840349 3 Tablet(s) PO QD 08/16/2018 Inactive Zithromax Z-Aníbal 250 mg tablet RxNorm: 421980 Tablet(s) PO take as directed 08/16/2018 09/05/2018 Inactive cyclobenzaprine 10 mg tablet RxNorm: 361340 1 Tablet(s) PO TID as needed 08/16/2018 11/08/2018 Inactive Synthroid 88 mcg tablet RxNorm: 384998 1 Tablet(s) PO Q D NEEDS UPDATED LABS BEFORE FURTHER REFILLS 08/08/2018 08/19/2018 Inactive Premarin 0.45 mg tablet RxNorm: 710833 1 Tablet(s) PO QD 08/03/2018 0 01/31/2019 Inactive fluoxetine 20 mg capsule RxNorm: 970933 TAKE ONE CAPSULE BY BENOIT TH DAILY 08/03/2018 09/26/2018 Inactive Xtampza ER 36 mg capsule sprinkle RxNorm: 8781356 1 Capsule(s) P O BID 08/03/2018 09/01/2018 Inactive metformin ER 500 mg tablet,extended release 24 hr RxNorm: 86 0975 1 Tablet(s) PO QD 08/03/2018 10/31/2018 Inactive Symbicort 160 mcg-4.5 mcg/actuation HFA aerosol inhaler RxNo rm: 9129982 2 Puff(s) INH BID 08/03/2018 01/29/2019 Inactive Duragesic 100 mcg/hr transdermal patch RxNorm: 659780 2 Application TD Q48H for pain 07/29/2018 08/27/2018 Inactive ProAir HFA 90 mcg/actuation aerosol inhaler RxNorm: 579189 INHALE TWO PUFFS BY MOUTH EVERY 4 HOURS FOR WHEEZING OR SHORTNESS OF BREATH 07/27/201802/2018 Inactive Relistor 150 mg tablet RxNorm: 0079697 3 Tablet(s) PO QD 07/20/2018 0 08/15/2018 Inactive metformin ER 500 mg tablet,extended release 24 hr RxNorm: 86 0975 TAKE ONE TABLET BY MOUTH DAILY 07/08/2018 08/02/2018 Inactive fluoxetine 40 mg capsule RxNorm: 491780 TAKE ONE CAPSULE BY BENOIT TH EVERY MORNING 07/08/2018 10/05/2018 Inactive Xtampza ER 18 mg capsule sprinkle RxNorm: 1836645 1 Capsule(s) P O BID 07/08/2018 08/02/2018 Inactive Relistor 150 mg tablet RxNorm: 6480425 3 Tablet(s) PO QD 07/08/2018 0 07/12/2018 Inactive Synthroid 88 mcg tablet RxNorm: 838507 1 Tablet(s) PO Q D NEEDS UPDATED LABS BEFORE FURTHER REFILLS 06/23/2018 07/07/2018 Inactive fluoxetine 40 mg capsule RxNorm: 921532 TAKE ONE CAPSULE BY BENOIT TH EVERY MORNING 06/15/2018 09/26/2018 Inactive orphenadrine citrate ER 100 mg tablet,extended release RxNor m: 929067 TAKE ONE TABLET BY MOUTH TWICE A DAY FOR MUSCLE SPASM 06/15/2018 08/15/2018 Renu ctive Duragesic 100 mcg/hr transdermal patch RxNorm: 747519 2 Application TD Q48H for pain 05/30/2018 06/28/2018 Inactive ProAir HFA 90 mcg/actuation aerosol inhaler RxNorm: 208720 INHALE TWO PUFFS BY MOUTH EVERY 4 HOURS FOR WHEEZING OR SHORTNESS OF BREATH 05/19/201803/2018 Inactive Chantix Continuing Month Box 1 mg tablet RxNorm: 354595 TAKE ONE TABLET BY MOUTH TWICE A DAY 05/19/2018 08/15/2018 Inactive oxycodone 10 mg tablet RxNorm: 0707370 1-2 Tablet(s) PO QID as n eeded for pain 05/19/2018 07/07/2018 Inactive gabapentin 300 mg capsule RxNorm: 962347 TAKE ONE CAPSULE BY MO UT TWICE A DAY 05/18/2018 07/16/2018 Inactive ProAir HFA 90 mcg/actuation aerosol inhaler RxNorm: 664273 INHALE TWO PUFFS BY MOUTH EVERY 4 HOURS FOR WHEEZING OR SHORTNESS OF BREATH 05/04/201804/23 Inactive Augmentin 500 mg-125 mg tablet RxNorm: 130374 1 Tablet(s) PO BID 05/03/2018 Inactive oxycodone 10 mg tablet RxNorm: 4302298 1-2 Tablet(s) PO QID as n eeded for pain 04/21/2018 05/18/2018 Inactive Synthroid 88 mcg tablet RxNorm: 139598 1 Tablet(s) PO QD 04/15/2018 0 08/08/2018 Inactive Symbicort 160 mcg-4.5 mcg/actuation HFA aerosol inhaler RxNo rm: 5817660 2 Puff(s) INH BID 04/15/2018 04/10/2019 Inactive Premarin 0.45 mg tablet RxNorm: 341195 1 Tablet(s) PO QD 04/15/2018 0 08/03/2018 Inactive ProAir HFA 90 mcg/actuation aerosol inhaler RxNorm: 300400 2 Puff(s) INH Q4H prn for wheezing or shortness of breath 04/15/2018 05/03/2018 Inactive metformin ER 500 mg tablet,extended release 24 hr RxNorm: 86 0975 1 Tablet(s) PO QD 04/11/2018 07/07/2018 Inactive omeprazole 40 mg capsule,delayed release RxNorm: 262163 TAKE ONE CAPSULE BY MOUTH DAILY 04/10/2018 06/08/2018 Inactive Synthroid 88 mcg tablet RxNorm: 638534 1 Tablet(s) PO QD 04/04/2018 0 04/14/2018 Inactive Synthroid 88 mcg tablet RxNorm: 803969 1 Tablet(s) PO QD 04/04/2018 0 04/03/2018 Inactive orphenadrine citrate ER 100 mg tablet,extended release RxNor m: 660305 1 Tablet(s) PO BID for muscle spasm 04/04/2018 05/03/2018 Inactive metformin ER 500 mg tablet,extended release 24 hr RxNorm: 86 0975 1 Tablet(s) PO QD NEEDS UPDATED LABS 03/31/2018 04/11/2018 Inactive doxycycline hyclate 100 mg capsule RxNorm: 9580691 1 Capsule(s) PO BID 03/31/2018 04/09/2018 Inactive prednisone 20 mg tablet RxNorm: 723037 3 Tablet(s) PO T ID for 3 days then 1 po BID for 3 days then one daily for 3 days 03/31/2018 07/06/2018 Inactiv e Chantix Continuing Month Box 1 mg tablet RxNorm: 661366 TAKE ONE TABLET BY MOUTH TWICE A DAY 03/25/2018 03/30/2018 Inactive oxycodone 10 mg tablet RxNorm: 2661830 1-2 Tablet(s) PO QID as n eeded for pain 03/21/2018 04/20/2018 Inactive Daliresp 500 mcg tablet RxNorm: 2831180 1 Tablet(s) PO QD 03/15/2018 08/22/2018 Inactive metformin ER 500 mg tablet,extended release 24 hr RxNorm: 86 0975 1 Tablet(s) PO QD NEEDS UPDATED LABS 03/14/2018 03/31/2018 Inactive nystatin 100,000 unit/mL oral suspension RxNorm: 307407 5 Chio liter(s) PO QID 03/02/2018 03/15/2018 Inactive nystatin 100,000 unit/mL oral suspension RxNorm: 968524 5 Chio liter(s) PO QID 03/02/2018 03/01/2018 Inactive oxycodone 10 mg tablet RxNorm: 6437943 1-2 Tablet(s) PO QID as n eeded for pain 02/16/2018 03/20/2018 Inactive fluoxetine 20 mg capsule RxNorm: 468763 1 Capsule(s) PO QD 02/15/20 18 08/02/2018 Inactive metformin ER 500 mg tablet,extended release 24 hr RxNorm: 86 0975 1 Tablet(s) PO QD Needs updated labs 02/14/2018 03/14/2018 Inactive cefdinir 300 mg capsule RxNorm: 131268 1 Capsule(s) PO BID 01/27/20 18 02/04/2018 Inactive orphenadrine citrate ER 100 mg tablet,extended release RxNor m: 809299 1 Tablet(s) PO BID for muscle spasm 01/26/2018 04/04/2018 Inactive gabapentin 300 mg capsule RxNorm: 435933 1 Capsule(s) PO BID 201704/17/2018 Inactive oxycodone 10 mg tablet RxNorm: 6951559 1-2 Tablet(s) PO QID as n eeded for pain 01/17/2018 02/15/2018 Inactive Duragesic 100 mcg/hr transdermal patch RxNorm: 243115 2 Application TD Q48H for pain 01/17/2018 02/15/2018 Inactive gabapentin 300 mg capsule RxNorm: 471066 TAKE ONE CAPSULE BY MO UTH TWICE A DAY 12/20/2017 01/18/2018 Inactive fluoxetine 40 mg capsule RxNorm: 458165 TAKE ONE CAPSULE BY BENOIT TH EVERY MORNING 12/15/2017 03/14/2018 Inactive RadiojarTouch Ultra Test strips RxNorm: TEST DAILY 11/04/2017 02/01/2018 Inactive gabapentin 300 mg capsule RxNorm: 110949 1 Capsule(s) P O TID replaces BID dosing 10/26/2017 02/22/2018 Inactive oxycodone 10 mg tablet RxNorm: 6690942 1-2 Tablet(s) PO QID as n eeded for pain 10/18/2017 01/16/2018 Inactive Duragesic 100 mcg/hr transdermal patch RxNorm: 612080 2 Application TD Q48H for pain 10/18/2017 11/16/2017 Inactive gabapentin 300 mg capsule RxNorm: 989970 1 Capsule(s) PO BID 201610/25/2017 Inactive Abilify 5 mg tablet RxNorm: 112473 1 Tablet(s) PO QAM 09/23/201702/2017 Inactive gabapentin 300 mg capsule RxNorm: 496377 1 Capsule(s) PO BID 201610/17/2017 Inactive oxycodone 10 mg tablet RxNorm: 5679994 1-2 Tablet(s) PO QID as n eeded for pain 09/15/2017 10/17/2017 Inactive Duragesic 100 mcg/hr transdermal patch RxNorm: 960139 2 Application TD Q48H for pain 09/15/2017 10/14/2017 Inactive Duragesic 100 mcg/hr transdermal patch RxNorm: 947389 2 Application TD Q48H for pain 09/15/2017 10/24/2019 Inactive oxycodone 10 mg tablet RxNorm: 8944890 1-2 Tablet(s) PO QID as n eeded for pain 09/15/2017 08/15/2018 Inactive Daliresp 500 mcg tablet RxNorm: 8680000 1 Tablet(s) PO QD 09/06/2017 03/15/2018 Inactive Ventolin HFA 90 mcg/actuation aerosol inhaler RxNorm: 657840 2 Puff(s) INH Q4H as needed 09/02/2017 05/19/2018 Inactive oxycodone 10 mg tablet RxNorm: 9861241 1-2 Tablet(s) PO QID as n eeded for pain 08/17/2017 09/14/2017 Inactive Duragesic 100 mcg/hr transdermal patch RxNorm: 662289 2 Application TD Q48H for pain 08/17/2017 09/14/2017 Inactive fluoxetine 40 mg capsule RxNorm: 925816 Capsule(s) TAKE ONE CAPSULE BY MOUTH EVERY MORNING 08/17/2017 12/14/2017 Inactive Pulmicort 1 mg/2 mL suspension for nebulization RxNorm: 6168 19 1 Unit Dose INH BID Dx: COPD (J44.9) 08/16/2017 08/22/2018 Inactive gabapentin 300 mg capsule RxNorm: 712510 1 Capsule(s) PO QHS 201610/18/2017 Inactive fluoxetine 20 mg capsule RxNorm: 875337 1 Capsule(s) PO QD 08/12/20 17 02/14/2018 Inactive Abilify 2 mg tablet RxNorm: 899958 1 Tablet(s) PO QD TA KE ONE TABLET BY MOUTH DAILY 08/12/2017 10/25/2017 Inactive metformin ER 500 mg tablet,extended release 24 hr RxNorm: 86 0975 1 Tablet(s) PO QD 08/10/2017 02/14/2018 Inactive Synthroid 112 mcg tablet RxNorm: 104500 1 Tablet(s) PO QD 08/10/2017 04/15/2018 Inactive oxycodone 10 mg tablet RxNorm: 9513219 1-2 Tablet(s) PO QID as n eeded for pain 07/19/2017 08/16/2017 Inactive Duragesic 100 mcg/hr transdermal patch RxNorm: 475921 2 Application TD Q48H for pain 07/19/2017 08/16/2017 Inactive Ventolin HFA 90 mcg/actuation aerosol inhaler RxNorm: 862542 2 Puff(s) INH Q4H as needed 07/12/2017 09/02/2017 Inactive Abilify 2 mg tablet RxNorm: 256595 1 Tablet(s) PO QD TA KE ONE TABLET BY MOUTH DAILY 07/06/2017 08/11/2017 Inactive gabapentin 800 mg tablet RxNorm: 718819 1 Tablet(s) PO TID 06/22/20 17 07/05/2017 Inactive Chantix Starting Month Box 0.5 mg (11)-1 mg (42) table ts in dose pack RxNorm: 069772 TAKE BY MOUTH INSTRUCTED - PER PACKAGE INSTRUCTIONS 06/0707/04/2017 Inactive Ventolin HFA 90 mcg/actuation aerosol inhaler RxNorm: 657905 2 Puff(s) INH Q4H as needed 05/26/2017 07/12/2017 Inactive Duragesic 100 mcg/hr transdermal patch RxNorm: 638189 2 Application TD Q48H for pain 05/19/2017 06/17/2017 Inactive oxycodone 10 mg tablet RxNorm: 9286682 1-2 Tablet(s) PO QID as n eeded for pain 05/19/2017 07/18/2017 Inactive Abilify 2 mg tablet RxNorm: 275720 TAKE ONE TABLET BY MOUTH DAILY 0 05/10/2017 07/05/2017 Inactive Synthroid 112 mcg tablet RxNorm: 309963 1 Tablet(s) PO QD 05/06/2017 08/10/2017 Inactive metformin ER 500 mg tablet,extended release 24 hr RxNorm: 86 0975 1 Tablet(s) PO QD 05/06/2017 08/10/2017 Inactive Topamax 100 mg tablet RxNorm: 474210 1 Tablet(s) PO QHS 05/06/2017 Inactive Premarin 0.45 mg tablet RxNorm: 009512 1 Tablet(s) PO QD 05/06/2017 0 04/15/2018 Inactive orphenadrine citrate ER 100 mg tablet,extended release RxNor m: 430523 1 Tablet(s) PO TID for muscle spasm--replaces methocarbamol 04/29/2017 Inactive oxycodone 10 mg tablet RxNorm: 1849138 1-2 Tablet(s) PO QID as n eeded for pain 04/21/2017 05/18/2017 Inactive Duragesic 100 mcg/hr transdermal patch RxNorm: 925197 2 Application TD Q48H for pain 04/21/2017 05/18/2017 Inactive fluoxetine 40 mg capsule RxNorm: 626582 Capsule(s) TAKE ONE CAPSULE BY MOUTH EVERY MORNING 04/20/2017 08/17/2017 Inactive Ventolin HFA 90 mcg/actuation aerosol inhaler RxNorm: 639094 2 Puff(s) INH Q4H as needed 04/05/2017 05/26/2017 Inactive Symbicort 160 mcg-4.5 mcg/actuation HFA aerosol inhaler RxNo rm: 5700823 2 Puff(s) INH BID 03/30/2017 04/15/2018 Inactive Spiriva with HandiHaler 18 mcg and inhalation capsules RxNor m: 110348 1 Capsule(s) INH QD USING HANDIHALER 03/30/2017 02/12/2019 Inactive Duragesic 100 mcg/hr transdermal patch RxNorm: 287562 2 Application TD Q48H for pain 03/18/2017 04/16/2017 Inactive oxycodone 10 mg tablet RxNorm: 8484197 1-2 Tablet(s) PO QID as n eeded for pain 03/18/2017 04/20/2017 Inactive metformin ER 500 mg tablet,extended release 24 hr RxNorm: 86 0975 Tablet(s) TAKE ONE TABLET BY MOUTH DAILY 03/01/2017 05/06/2017 Inactive Premarin 0.45 mg tablet RxNorm: 744531 Tablet(s) TAKE ONE TABLE T BY MOUTH DAILY 03/01/2017 05/06/2017 Inactive Synthroid 112 mcg tablet RxNorm: 781298 Tablet(s) TAKE ONE TABLET BY MOUTH DAILY 03/01/2017 05/06/2017 Inactive Daliresp 500 mcg tablet RxNorm: 4283006 1 Tablet(s) PO QD 03/01/2017 09/06/2017 Inactive 16.2 mg-0.1037 mg-0.0194 mg tablet RxNorm: 2634459 Tablet(s) PO PRN for gas and cramping 02/23/2017 04/28/2017 Inactive TAKE TWO TABLET S BY MOUTH THREE TIMES A DAY NEEDED FOR GAS AND CRAMPING gabapentin 800 mg tablet RxNorm: 154742 1 Tablet(s) PO TID repl aces 600mg 02/23/2017 04/28/2017 Inactive Duragesic 100 mcg/hr transdermal patch RxNorm: 722005 2 Application TD Q48H for pain 02/17/2017 03/17/2017 Inactive fluoxetine 20 mg capsule RxNorm: 675543 1 Capsule(s) PO QD 02/18/20 17 08/12/2017 Inactive oxycodone 20 mg tablet RxNorm: 1781379 1 Tablet(s) PO QID as nee ded for pain 02/17/2017 03/17/2017 Inactive Ventolin HFA 90 mcg/actuation aerosol inhaler RxNorm: 383612 INHALE TWO PUFFS BY MOUTH EVERY 4 HOURS NEEDED 02/15/2017 04/05/2017 Inactive Silvadene 1 % topical cream RxNorm: 305242 1 Application TOP BI D to burn area 02/01/2017 09/22/2017 Inactive Topamax 100 mg tablet RxNorm: 678179 TAKE ONE TABLET BY MOUTH EVERY NIGHT AT BEDTIME 01/29/2017 05/06/2017 Inactive Chantix Starting Month Box 0.5 mg (11)-1 mg (42) table ts in dose pack RxNorm: 622484 Tablet(s) PO as directed 01/29/2017 06/01/2017 Inactive Abilify 2 mg tablet RxNorm: 705486 TAKE ONE TABLET BY MOUTH DAILY 0 01/26/2017 04/25/2017 Inactive Chantix Starting Month Box 0.5 mg (11)-1 mg (42) table ts in dose pack RxNorm: 748934 Tablet(s) PO as directed 01/20/2017 01/28/2017 Inactive gabapentin 600 mg tablet RxNorm: 235013 1 Tablet(s) PO TID 01/21/2002/22/2017 Inactive Chantix Continuing Month Box 1 mg tablet RxNorm: 301215 1 Table t(s) PO BID 12/31/2016 06/01/2017 Inactive Spiriva with HandiHaler 18 mcg and inhalation capsules RxNor m: 926604 INHALE THE ENTIRE CONTENTS OF 1 CAPSULE ONCE A DAY USING HANDIHALER 12/31/201607/2017 Inactive Synthroid 112 mcg tablet RxNorm: 556145 TAKE ONE TABLET BY MOUT H DAILY 12/30/2016 03/01/2017 Inactive metformin ER 500 mg tablet,extended release 24 hr RxNorm: 86 0975 TAKE ONE TABLET BY MOUTH DAILY 12/30/2016 03/01/2017 Inactive Premarin 0.45 mg tablet RxNorm: 049547 TAKE ONE TABLET BY MOUTH DAILY 12/30/2016 03/01/2017 Inactive omeprazole 40 mg capsule,delayed release RxNorm: 780746 TAKE ONE CAPSULE BY MOUTH DAILY 12/30/2016 01/25/2018 Inactive Ventolin HFA 90 mcg/actuation aerosol inhaler RxNorm: 441239 INHALE TWO PUFFS BY MOUTH EVERY 4 HOURS NEEDED 12/28/2016 02/13/2017 Inactive fluoxetine 40 mg capsule RxNorm: 663419 TAKE ONE CAPSULE BY BENOIT TH EVERY MORNING 12/15/2016 04/20/2017 Inactive Chantix Continuing Month Box 1 mg tablet RxNorm: 144297 TAKE ONE TABLET BY MOUTH TWICE A DAY 12/04/2016 12/31/2016 Inactive doxycycline hyclate 100 mg capsule RxNorm: 7117533 1 Capsule(s) PO BID 12/01/2016 12/07/2016 Inactive Levaquin 750 mg tablet RxNorm: 906710 1 Tablet(s) PO QD 12/01/2016 Inactive Abilify 2 mg tablet RxNorm: 604368 TAKE ONE TABLET BY MOUTH DAILY 0 11/25/2016 11/30/2016 Inactive Ventolin HFA 90 mcg/actuation aerosol inhaler RxNorm: 015714 INHALE TWO PUFFS BY MOUTH EVERY 4 HOURS NEEDED 11/02/2016 12/19/2016 Inactive Chantix Continuing Month Box 1 mg tablet RxNorm: 271944 Tablet(s) PO as directed 10/30/2016 12/03/2016 Inactive Symbicort 160 mcg-4.5 mcg/actuation HFA aerosol inhaler RxNo rm: 1914094 INHALE TWO PUFFS TWO TIMES A DAY 10/30/2016 03/30/2017 Inactive Abilify 2 mg tablet RxNorm: 109752 1 Tablet(s) PO QD 10/27/201611/24 Inactive amoxicillin 500 mg capsule RxNorm: 920518 1 Capsule(s) PO TID 10/1410/23/2016 Inactive amoxicillin 500 mg capsule RxNorm: 697556 1 Capsule(s) PO TID 10/1410/13/2016 Inactive Synthroid 112 mcg tablet RxNorm: 750087 TAKE ONE TABLET BY MOUT H DAILY 09/28/2016 12/29/2016 Inactive Topamax 100 mg tablet RxNorm: 931007 TAKE ONE TABLET BY MOUTH EVERY NIGHT AT BEDTIME 09/28/2016 01/28/2017 Inactive Premarin 0.45 mg tablet RxNorm: 550439 TAKE ONE TABLET BY MOUTH DAILY 09/28/2016 12/29/2016 Inactive metformin ER 500 mg tablet,extended release 24 hr RxNorm: 86 0975 TAKE ONE TABLET BY MOUTH DAILY 09/28/2016 12/29/2016 Inactive Ventolin HFA 90 mcg/actuation aerosol inhaler RxNorm: 926093 INHALE TWO PUFFS BY MOUTH EVERY 4 HOURS NEEDED 09/22/2016 10/23/2016 Inactive Pulmicort 1 mg/2 mL suspension for nebulization RxNorm: 6168 19 1 Unit Dose INH BID Dx: COPD (J44.9) 09/10/2016 08/16/2017 Inactive Pulmicort 1 mg/2 mL suspension for nebulization RxNorm: 6168 19 1 Unit Dose INH BID 09/10/2016 09/09/2016 Inactive Brovana 15 mcg/2 mL solution for nebulization RxNorm: 550344 1 Unit Dose INH BID Dx: COPD (J44.9) 09/10/2016 01/25/2018 Inactive Brovana 15 mcg/2 mL solution for nebulization RxNorm: 263746 1 Unit Dose INH BID 09/10/2016 09/09/2016 Inactive ipratropium-albuterol 0.5 mg-3 mg(2.5 mg base)/3 mL ne bulization soln RxNorm: 8986554 1 Unit Dose INH Q4H as needed Dx: COPD (J44.9) 09/10/2016 0 02/12/2019 Inactive orphenadrine citrate ER 100 mg tablet,extended release RxNor m: 625328 1 Tablet(s) PO BID for muscle spasm--replaces methocarbamol 09/09/2016 Inactive Chantix Continuing Month Box 1 mg tablet RxNorm: 222231 Tablet(s) PO as directed 09/09/2016 10/30/2016 Inactive orphenadrine citrate ER 100 mg tablet,extended release RxNor m: 611647 1 Tablet(s) PO BID for muscle spasm 09/09/2016 09/08/2016 Inactive Spiriva with HandiHaler 18 mcg and inhalation capsules RxNor m: 671504 INHALE THE ENTIRE CONTENTS OF 1 CAPSULE ONCE A DAY USING HANDIHALER 09/01/201605/2017 Inactive Daliresp 500 mcg tablet RxNorm: 5154010 1 Tablet(s) PO QD 08/27/2016 03/01/2017 Inactive prednisone 20 mg tablet RxNorm: 085144 3 Tablet(s) PO T ID for 3 days then 1 po BID for 3 days then one daily for 3 days 08/26/2016 04/28/2017 Inactiv e Wellbutrin XL 300 mg 24 hr tablet, extended release RxNorm: 084050 TAKE ONE TABLET BY MOUTH EVERY MORNING 07/29/2016 10/26/2016 Inactive gabapentin 600 mg tablet RxNorm: 912214 1 Tablet(s) PO BID 06/26/20 16 12/22/2016 Inactive fluoxetine 40 mg capsule RxNorm: 589636 TAKE ONE CAPSULE BY BENOIT TH EVERY MORNING 06/24/2016 11/20/2016 Inactive Duragesic 100 mcg/hr transdermal patch RxNorm: 706111 2 Application TD Q48H for pain 06/05/2016 07/04/2016 Inactive oxycodone 10 mg tablet RxNorm: 9232859 1-2 Tablet(s) PO QID as n eeded for pain 06/05/2016 03/17/2017 Inactive Belladonna-Phenobarbital 48 mg tablet,extended release RxNor m: 2 Tablet(s) PO TID 06/05/2016 01/19/2017 Inactive Premarin 0.45 mg tablet RxNorm: 898825 TAKE ONE TABLET BY MOUTH DAILY 05/27/2016 09/23/2016 Inactive Topamax 100 mg tablet RxNorm: 234909 TAKE ONE TABLET BY MOUTH EVERY NIGHT AT BEDTIME 05/27/2016 09/27/2016 Inactive Synthroid 112 mcg tablet RxNorm: 954650 TAKE ONE TABLET BY MOUT H DAILY 05/27/2016 09/23/2016 Inactive metformin ER 500 mg tablet,extended release 24 hr RxNorm: 86 0975 TAKE ONE TABLET BY MOUTH DAILY 05/27/2016 09/23/2016 Inactive Symbicort 160 mcg-4.5 mcg/actuation HFA aerosol inhaler RxNo rm: 9007993 INHALE TWO PUFFS TWO TIMES A DAY 05/27/2016 10/23/2016 Inactive Ventolin HFA 90 mcg/actuation aerosol inhaler RxNorm: 808269 INHALE TWO PUFFS BY MOUTH EVERY 4 HOURS NEEDED 05/21/2016 07/07/2016 Inactive omeprazole 40 mg capsule,delayed release RxNorm: 920676 1 Capsu le(s) PO QD 05/06/2016 08/03/2016 Inactive metformin ER 500 mg tablet,extended release 24 hr RxNorm: 86 0975 TAKE ONE TABLET BY MOUTH DAILY 04/23/2016 05/22/2016 Inactive methocarbamol 750 mg tablet RxNorm: 771660 2 Tablet(s) PO TID as needed for muscle spasm 04/23/2016 09/08/2016 Inactive Synthroid 112 mcg tablet RxNorm: 179469 TAKE ONE TABLET BY MOUT H DAILY 04/23/2016 05/22/2016 Inactive Spiriva with HandiHaler 18 mcg and inhalation capsules RxNor m: 531069 INHALE THE ENTIRE CONTENTS OF 1 CAPSULE ONCE A DAY USING HANDIHALER 04/09/201608/2016 Inactive Diflucan 100 mg tablet RxNorm: 005174 1 Tablet(s) PO QD 04/08/2016 Inactive doxycycline hyclate 100 mg capsule RxNorm: 4161659 1 Capsule(s) PO BID 04/08/2016 04/17/2016 Inactive doxycycline hyclate 100 mg capsule RxNorm: 5854017 1 Capsule(s) PO BID 04/08/2016 04/07/2016 Inactive Diflucan 100 mg tablet RxNorm: 717666 1 Tablet(s) PO QD 04/08/2016 Inactive ondansetron HCl 4 mg tablet RxNorm: 990587 1 Tablet(s) PO Q4H as needed for nausea and vomiting 04/08/2016 09/22/2017 Inactive gabapentin 600 mg tablet RxNorm: 452754 TAKE ONE TABLET BY MOUT H TWICE A DAY 03/24/2016 06/25/2016 Inactive Synthroid 112 mcg tablet RxNorm: 606599 TAKE ONE TABLET BY MOUT H DAILY 02/25/2016 04/22/2016 Inactive Levaquin 500 mg tablet RxNorm: 605132 1 Tablet(s) PO QD 01/23/2016 Inactive prednisone 20 mg tablet RxNorm: 323090 1 Tablet(s) PO T ID for 3 days then 1 po BID for 3 days then one daily for 3 days 01/23/2016 08/25/2016 Inactiv e Kitchensurfing Ultra Test strips RxNorm: TEST BLOOD SUGAR ONCE DAILY 250.00 01/09/2016 11/04/2017 Inactive methocarbamol 750 mg tablet RxNorm: 355334 2 Tablet(s) PO TID as needed for muscle spasm 01/09/2016 04/23/2016 Inactive lactulose 10 gram/15 mL oral solution RxNorm: 177744 [address](s) PO QD 01/09/2016 09/22/2017 Inactive TAKE 1 TABLESPOON BY MOUTH ONCE DAILY metformin ER 500 mg tablet,extended release 24 hr RxNorm: 86 0975 1 Tablet(s) PO QD 12/26/2015 04/22/2016 Inactive fluoxetine 20 mg capsule RxNorm: 411850 1 Capsule(s) PO QD 12/23/19 16 06/19/2016 Inactive Premarin 0.45 mg tablet RxNorm: 968486 TAKE ONE TABLET BY MOUTH DAILY 12/23/2015 05/20/2016 Inactive fluoxetine 40 mg capsule RxNorm: 051004 1 Capsule(s) PO QD 12/23/19 16 06/19/2016 Inactive TAKE ONE CAPSULE BY MOUTH EV JANKI MORNING azithromycin 500 mg tablet RxNorm: 185096 1 Tablet(s) PO QD 016 12/19/2015 Inactive Zofran 4 mg tablet RxNorm: 427646 1 Tablet(s) PO Q4H prn nausea /vomiting 12/13/2015 03/30/2018 Inactive azithromycin 500 mg tablet RxNorm: 105200 1 Tablet(s) PO QD 016 12/12/2015 Inactive Duragesic 100 mcg/hr transdermal patch RxNorm: 128712 2 Application TD Q48H for pain 12/09/2015 01/07/2016 Inactive oxycodone 10 mg tablet RxNorm: 4183808 1-2 Tablet(s) PO QID as n eeded for pain 12/09/2015 06/04/2016 Inactive Bactroban 2 % topical cream RxNorm: 359162 Application TOP BID 11/2208/25/2016 Inactive doxycycline hyclate 100 mg capsule RxNorm: 2553841 1 Capsule(s) PO BID 12/03/2015 12/12/2015 Inactive Topamax 100 mg tablet RxNorm: 469158 TAKE ONE TABLET BY MOUTH EVERY NIGHT AT BEDTIME 11/25/2015 05/22/2016 Inactive Symbicort 160 mcg-4.5 mcg/actuation HFA aerosol inhaler RxNo rm: 0482090 INHALE TWO PUFFS TWO TIMES A DAY 11/25/2015 05/22/2016 Inactive Synthroid 112 mcg tablet RxNorm: 691188 Tablet(s) TAKE ONE TABLET BY MOUTH DAILY 11/25/2015 02/22/2016 Inactive omeprazole 40 mg capsule,delayed release RxNorm: 414930 1 Capsu le(s) PO QD 11/12/2015 05/05/2016 Inactive oxycodone 10 mg tablet RxNorm: 7913945 1-2 Tablet(s) PO QID as n eeded for pain 11/05/2015 12/08/2015 Inactive Duragesic 100 mcg/hr transdermal patch RxNorm: 800495 2 Application TD Q48H for pain 11/05/2015 12/04/2015 Inactive omeprazole 40 mg capsule,delayed release RxNorm: 774739 1 Capsu le(s) PO QD 10/07/2015 11/11/2015 Inactive Januvia 100 mg tablet RxNorm: 527798 TAKE ONE TABLET BY MOUTH DAILY 09/11/2015 12/25/2015 Inactive Zithromax 500 mg tablet RxNorm: 816895 1 Tablet(s) PO QD 09/10/2015 1 Inactive prednisone 20 mg tablet RxNorm: 648252 1 Tablet(s) PO T ID for 3 days then 1 po BID for 3 days then one daily for 3 days 09/10/2015 08/25/2016 Inactiv e Wellbutrin XL 300 mg 24 hr tablet, extended release RxNorm: 042594 1 Tablet(s) PO QAM 09/10/2015 12/02/2015 Inactive Topamax 100 mg tablet RxNorm: 332392 TAKE ONE TABLET BY MOUTH EVERY NIGHT AT BEDTIME 09/02/2015 11/24/2015 Inactive Synthroid 112 mcg tablet RxNorm: 151282 TAKE ONE TABLET BY MOUT H DAILY 09/02/2015 11/25/2015 Inactive methocarbamol 750 mg tablet RxNorm: 114970 2 Tablet(s) PO TID as needed for muscle spasm 08/15/2015 01/09/2016 Inactive Wellbutrin XL 150 mg 24 hr tablet, extended release RxNorm: 592589 TAKE ONE TABLET BY MOUTH EVERY MORNING 08/13/2015 08/13/2015 Inactive gabapentin 600 mg tablet RxNorm: 089056 1 Tablet(s) PO BID 08/13/20 15 02/08/2016 Inactive Wellbutrin XL 300 mg 24 hr tablet, extended release RxNorm: 290633 1 Tablet(s) PO QAM 08/06/2015 09/09/2015 Inactive Wellbutrin XL 150 mg 24 hr tablet, extended release RxNorm: 987735 1 Tablet(s) PO QAM 07/18/2015 08/05/2015 Inactive prednisone 20 mg tablet RxNorm: 792147 1 Tablet(s) PO BID 07/18/2015 07/22/2015 Inactive doxycycline hyclate 100 mg tablet,delayed release RxNorm: 43 4018 1 Tablet(s) PO BID 07/18/2015 07/27/2015 Inactive pravastatin 40 mg tablet RxNorm: 924569 1 Tablet(s) PO QD NEEDS FASTING LAB 07/15/2015 07/14/2015 Inactive pravastatin 40 mg tablet RxNorm: 012531 1 Tablet(s) PO QD NEEDS FASTING LAB 07/15/2015 01/25/2018 Inactive Ventolin HFA 90 mcg/actuation aerosol inhaler RxNorm: 792141 2 Puff(s) INH Q4H 07/08/2015 07/07/2015 Inactive prn Premarin 0.45 mg tablet RxNorm: 468373 1 Tablet(s) PO QD 07/01/2015 0 12/22/2015 Inactive pravastatin 40 mg tablet RxNorm: 975500 1 Tablet(s) PO QD NEEDS FASTING LAB 06/14/2015 07/15/2015 Inactive Ventolin HFA 90 mcg/actuation aerosol inhaler RxNorm: 6931517 2 Puff(s) INH Q4H 06/06/2015 07/08/2015 Inactive prn albuterol sulfate 2.5 mg/3 mL (0.083 %) solution for n ebulization RxNorm: 558653 1 Unit Dose INH QID 05/30/2015 No Stop Date Active Duragesic 100 mcg/hr transdermal patch RxNorm: 656839 2 Application TD Q48H for pain 04/29/2015 05/28/2015 Inactive gabapentin 600 mg tablet RxNorm: 438790 1 Tablet(s) PO BID 04/11/20 15 08/13/2015 Inactive Onglyza 5 mg tablet RxNorm: 700972 1 Tablet(s) PO QD for blood suga r 04/10/2015 04/15/2015 Inactive [Brand Copay Card: RxBIN:[id number] PCN:CRISTIANA RxGRP:[id number] ID#:[id number]] methocarbamol 750 mg tablet RxNorm: 931065 2 Tablet(s) PO TID as needed for muscle spasm 03/28/2015 08/15/2015 Inactive pravastatin 40 mg tablet RxNorm: 532156 1 Tablet(s) PO QD 03/19/2015 03/18/2015 Inactive pravastatin 40 mg tablet RxNorm: 367367 1 Tablet(s) PO QD 03/19/2015 06/14/2015 Inactive lactulose 10 gram/15 mL oral solution RxNorm: 202466 [address]s) PO QD 03/07/2015 01/09/2016 Inactive TAKE 1 TABLESPOON BY MOUTH ONCE DAILY oxycodone 20 mg tablet RxNorm: 4713461 1 Tablet(s) PO QID as nee ded for pain 03/05/2015 07/08/2015 Inactive Topamax 100 mg tablet RxNorm: 170725 1 Tablet(s) PO QHS TAKE ONE TABLET BY MOUTH AT BEDTIME 02/25/2015 02/12/2019 Inactive metformin ER 500 mg tablet,extended release 24 hr RxNorm: 86 0975 1 Tablet(s) PO QD 02/11/2015 03/04/2015 Inactive take one tablet by mouth every day Daliresp 500 mcg tablet RxNorm: 6376137 1 Tablet(s) PO QD 02/11/2015 08/09/2015 Inactive Endocet 10 mg-325 mg tablet RxNorm: 0976895 1 Tablet(s) PO Q4H as needed for pain 01/23/2015 01/23/2015 Inactive gabapentin 600 mg tablet RxNorm: 101318 1 Tablet(s) PO BID 01/23/20 15 04/11/2015 Inactive methocarbamol 750 mg tablet RxNorm: 930007 2 Tablet(s) PO TID as needed for muscle spasm 01/15/2015 02/13/2015 Inactive fluoxetine 40 mg capsule RxNorm: 809016 1 Capsule(s) PO QD 01/14/20 15 12/23/2015 Inactive TAKE ONE CAPSULE BY MOUTH EV JANKI MORNING fluoxetine 20 mg capsule RxNorm: 325617 1 Capsule(s) PO QD 01/14/20 15 12/23/2015 Inactive Premarin 0.45 mg tablet RxNorm: 064898 1 Tablet(s) PO QD 01/02/2015 0 07/01/2015 Inactive Endocet 10 mg-325 mg tablet RxNorm: 7962748 1-2 Tablet(s) PO Q4H 02/12/2019 Inactive PRN PAIN Duragesic 100 mcg/hr transdermal patch RxNorm: 816110 2 Application TD Q48H for pain 12/25/2014 01/23/2015 Inactive Topamax 100 mg tablet RxNorm: 809095 1 Tablet(s) PO QHS TAKE ONE TABLET BY MOUTH AT BEDTIME 12/25/2014 02/24/2015 Inactive Tudorza Pressair 400 mcg/actuation breath activated RxNorm: 3826804 1 BID INHALE ONE PUFF INTO LUNGS TWO TIMES A DAY 12/17/2014 05/15/2015 Inactive Endocet 10 mg-325 mg tablet RxNorm: 6849930 1-2 Tablet(s) PO Q4H 12/19/2014 Inactive PRN PAIN Duragesic 100 mcg/hr transdermal patch RxNorm: 081561 2 Application TD Q48H for pain 11/20/2014 12/24/2014 Inactive Kitchensurfing Ultra Test strips RxNorm: TEST BLOOD SUGAR ONCE DAILY 250.00 11/16/2014 01/08/2016 Inactive omeprazole 40 mg capsule,delayed release RxNorm: 364216 1 Capsu le(s) PO QD 11/13/2014 11/12/2015 Inactive metformin ER 500 mg tablet,extended release 24 hr RxNorm: 86 0975 1 Tablet(s) PO QD 11/12/2014 02/11/2015 Inactive take one tablet by mouth every day Symbicort 160 mcg-4.5 mcg/actuation HFA aerosol inhaler RxNo rm: 7895126 2 Puff(s) INH BID 11/12/2014 03/11/2015 Inactive INHALE 2 PUFFS O RALLY TWO TIMES A DAY gabapentin 800 mg tablet RxNorm: 497907 1 Tablet(s) PO QD TAKE ONE TABLET BY MOUTH ONCE A DAY 10/22/2014 01/01/2015 Inactive Endocet 10 mg-325 mg tablet RxNorm: 5595720 1-2 Tablet(s) PO Q4H 11/15/2014 Inactive PRN PAIN Duragesic 100 mcg/hr transdermal patch RxNorm: 395168 2 Application TD Q48H for pain 10/17/2014 11/19/2014 Inactive gabapentin 800 mg tablet RxNorm: 332271 1 Tablet(s) PO QD TAKE ONE TABLET BY MOUTH ONCE A DAY 10/04/2014 10/21/2014 Inactive Premarin 0.9 mg tablet RxNorm: 882569 1 Tablet(s) PO QD TAKE ONE TABLET BY MOUTH ONCE A DAY 10/04/2014 01/01/2015 Inactive Spiriva with HandiHaler 18 mcg & inhalation capsules RxNorm: 872681 1 Capsule(s) INH QD 10/03/2014 04/30/2015 Inactive Levaquin 500 mg tablet RxNorm: 756463 1 Tablet(s) PO QD 10/03/2014 Inactive prednisone 20 mg tablet RxNorm: 658674 1 Tablet(s) PO QD 10/03/2014 1 12/09/2013 Inactive Duragesic 100 mcg/hr transdermal patch RxNorm: 408794 2 Application TD Q48H for pain 09/18/2014 10/16/2014 Inactive Endocet 10 mg-325 mg tablet RxNorm: 1778605 1-2 Tablet(s) PO Q4H 10/16/2014 Inactive PRN PAIN Synthroid 112 mcg tablet RxNorm: 368832 1 Tablet(s) QD 09/10/2014 Inactive Synthroid 112 mcg tablet RxNorm: 492265 TAKE ONE TABLET BY MOUTH ONE TIME A DAY. NEEDS LABS 09/10/2014 02/06/2015 Inactive omeprazole 40 mg capsule,delayed release RxNorm: 467717 1 Capsu le(s) PO QD 09/03/2014 11/13/2014 Inactive omeprazole 40 mg capsule,delayed release RxNorm: 977581 1 Capsu le(s) PO QD 09/03/2014 09/02/2014 Inactive Spiriva with HandiHaler 18 mcg & inhalation capsules RxNorm: 192044 1 Capsule(s) INH QD 08/27/2014 10/02/2014 Inactive gabapentin 600 mg tablet RxNorm: 189406 1 Tablet(s) PO BID 08/27/20 14 10/22/2014 Inactive Endocet 10 mg-325 mg tablet RxNorm: 0082327 1-2 Tablet(s) PO Q4H 09/17/2014 Inactive PRN PAIN fentanyl 100 mcg/hr transdermal patch RxNorm: 858542 1 Unit Dos e TD QD 08/21/2014 09/19/2014 Inactive Daliresp 500 mcg tablet RxNorm: 4879685 1 Tablet(s) PO QD 08/13/2014 02/11/2015 Inactive Synthroid 112 mcg tablet RxNorm: 340456 TAKE ONE TABLET BY MOUTH ONE TIME A DAY. NEEDS LABS 08/10/2014 09/10/2014 Inactive Endocet 10 mg-325 mg tablet RxNorm: 3906154 1-2 Tablet(s) PO Q4H 08/17/2014 Inactive PRN PAIN Duragesic 100 mcg/hr transdermal patch RxNorm: 532953 2 Application TD Q48H for pain 07/19/2014 09/17/2014 Inactive fluoxetine 40 mg capsule RxNorm: 131290 1 Capsule(s) PO QD 07/17/20 14 01/14/2015 Inactive TAKE ONE CAPSULE BY MOUTH EV JANKI MORNING fluoxetine 20 mg capsule RxNorm: 339825 1 Capsule(s) PO QD 07/17/20 14 01/14/2015 Inactive Spiriva with HandiHaler 18 mcg & inhalation capsules RxNorm: 169057 1 Capsule(s) INH QD 07/17/2014 08/26/2014 Inactive INHALE CONTENTS OF 1 CAPSULE(S) WITH HANDIHALER ONCE DAILY Zofran 4 mg tablet RxNorm: 218379 1 Tablet(s) PO Q4H prn nausea 07/25/2014 Inactive Synthroid 112 mcg tablet RxNorm: 567588 1 Tablet(s) PO QD 07/09/2014 07/09/2014 Inactive methocarbamol 750 mg tablet RxNorm: 438498 2 Tablet(s) PO TID as needed for muscle spasm 07/09/2014 09/06/2014 Inactive Synthroid 112 mcg tablet RxNorm: 929061 1 Tablet(s) PO QD - nee d labs 07/09/2014 08/07/2014 Inactive Medrol (Aníbal) 4 mg tablets in a dose pack RxNorm: 883612 6 Tablet(s) PO QD --then as directed 07/03/2014 07/08/2014 Inactive Tudorza Pressair 400 mcg/actuation breath activated RxNorm: 4710668 1 Puff(s) INH BID 07/03/2014 12/17/2014 Inactive cefdinir 300 mg capsule RxNorm: 646579 1 Capsule(s) PO BID 07/03/20 14 07/12/2014 Inactive Topamax 100 mg tablet RxNorm: 006883 Tablet(s) TAKE ONE TABLET BY MOUTH AT BEDTIME 07/02/2014 02/25/2015 Inactive Duragesic 100 mcg/hr transdermal patch RxNorm: 212194 2 Application TD Q48H for pain 06/25/2014 07/18/2014 Inactive Endocet 10 mg-325 mg tablet RxNorm: 5405077 1-2 Tablet(s) PO Q4H 07/18/2014 Inactive PRN PAIN metformin ER 500 mg tablet,extended release 24 hr RxNorm: 86 0975 1 Tablet(s) PO QD Needs labs 06/18/2014 07/01/2014 Inactive take one tablet by mouth every day Duragesic 100 mcg/hr transdermal patch RxNorm: 282277 2 Application TD Q48H for pain 05/22/2014 06/24/2014 Inactive Synthroid 112 mcg tablet RxNorm: 934101 1 Tablet(s) PO QD 05/22/2014 07/09/2014 Inactive Endocet 10 mg-325 mg tablet RxNorm: 9223422 1-2 Tablet(s) PO Q4H 06/20/2014 Inactive PRN PAIN Endocet 10 mg-325 mg tablet RxNorm: 9041645 1-2 Tablet(s) PO Q4H 05/21/2014 Inactive PRN PAIN Duragesic 100 mcg/hr transdermal patch RxNorm: 835936 2 Application TD Q48H for pain 04/25/2014 05/21/2014 Inactive Daliresp 500 mcg tablet RxNorm: 3717985 1 Tablet(s) PO QD 04/24/2014 08/13/2014 Inactive Symbicort 160 mcg-4.5 mcg/actuation HFA aerosol inhaler RxNo rm: 4076250 2 Puff(s) INH BID 04/24/2014 08/21/2014 Inactive INHALE 2 PUFFS O RALLY TWO TIMES A DAY metformin ER 500 mg tablet,extended release 24 hr RxNorm: 86 0975 1 Tablet(s) PO QD 04/24/2014 11/12/2014 Inactive TAKE ONE TABLET BY MOUTH EVERY DAY [AttnRPh:Saving Apply/Adjudicate RxGRP:LDMGRP RxBIN:[id number] RxPCN:2012 PCode:01 ID#:[id number]] Symbicort 160 mcg-4.5 mcg/actuation HFA aerosol inhaler RxNo rm: 2911097 2 Puff(s) INH BID 04/24/2014 11/12/2014 Inactive INHALE 2 PUFFS O RALLY TWO TIMES A DAY Premarin 0.9 mg tablet RxNorm: 859035 1 Tablet(s) PO QD 04/24/2014 Inactive TAKE ONE TABLET BY MOUTH EVERY DAY metformin ER 500 mg tablet,extended release 24 hr RxNorm: 86 0975 1 Tablet(s) PO QD Needs labs 04/24/2014 06/18/2014 Inactive TAKE ONE TABLET BY MOUTH EVERY DAY [AttnRPh:Saving Apply/Adjudicate RxGRP:LDMGRP RxBIN:[id number] RxPCN:2012 PCode:01 ID#:[id number]] gabapentin 800 mg tablet RxNorm: 765858 1 Tablet(s) PO QD 04/24/2014 10/04/2014 Inactive TAKE ONE TABLET BY MOUTH EVERY DAY Topamax 100 mg tablet RxNorm: 039451 1 Tablet(s) PO QHS 04/17/2014 Inactive Topamax 100 mg tablet RxNorm: 746570 TAKE ONE TABLET BY MOUTH A T BEDTIME 04/17/2014 07/01/2014 Inactive Tudorza Pressair 400 mcg/actuation breath activated RxNorm: 3258684 1 Puff(s) INH BID 04/11/2014 07/02/2014 Inactive Duragesic 100 mcg/hr transdermal patch RxNorm: 414205 2 Application TD Q48H for pain 03/27/2014 04/24/2014 Inactive Endocet 10 mg-325 mg tablet RxNorm: 5660173 1-2 Tablet(s) PO Q4H 04/24/2014 Inactive PRN PAIN Robaxin 750 mg tablet RxNorm: 357165 2 Tablet(s) PO TID as need ed for spasm 02/23/2014 03/28/2015 Inactive Duragesic 100 mcg/hr transdermal patch RxNorm: 600839 2 Application TD Q48H for pain 02/23/2014 No Stop Date Active Endocet 10 mg-325 mg tablet RxNorm: 3568769 1-2 Tablet(s) PO Q4H 03/23/2014 Inactive PRN PAIN Synthroid 112 mcg tablet RxNorm: 211523 1 Tablet(s) PO QD TAKE ONE TABLET BY MOUTH EVERY DAY 02/15/2014 05/22/2014 Inactive Zithromax 500 mg tablet RxNorm: 954904 1 Tablet(s) PO QD 01/30/2014 0 02/05/2014 Inactive Diflucan 100 mg tablet RxNorm: 538598 1 Tablet(s) PO QD 01/30/2014 Inactive prednisone 20 mg tablet RxNorm: 919356 1 Tablet(s) PO BID 01/30/2014 02/05/2014 Inactive fluoxetine 40 mg capsule RxNorm: 454255 1 Capsule(s) PO QD 01/23/20 14 07/16/2014 Inactive TAKE ONE CAPSULE BY MOUTH EV JANKI MORNING fluoxetine 40 mg capsule RxNorm: 091430 1 Capsule(s) PO QD 01/23/20 14 07/17/2014 Inactive TAKE ONE CAPSULE BY MOUTH EV JANKI MORNING cefdinir 300 mg capsule RxNorm: 423879 1 Capsule(s) PO BID 01/16/20 14 01/29/2014 Inactive Zithromax 500 mg tablet RxNorm: 190154 1 Tablet(s) PO QD 01/16/2014 0 01/22/2014 Inactive prednisone 20 mg tablet RxNorm: 916230 1 Tablet(s) PO BID 01/16/2014 01/22/2014 Inactive Spiriva with HandiHaler 18 mcg and inhalation capsules RxNor m: 603970 1 Capsule(s) INH QD 12/18/2013 07/17/2014 Inactive INHALE CONTENT S OF 1 CAPSULE(S) WITH HANDIHALER ONCE DAILY fluoxetine 20 mg capsule RxNorm: 457607 1 Capsule(s) PO QD 12/18/19 14 06/15/2014 Inactive Spiriva with HandiHaler 18 mcg & inhalation capsules RxNorm: 281490 1 Capsule(s) INH QD 12/18/2013 06/15/2014 Inactive INHALE CONTENTS OF 1 CAPSULE(S) WITH HANDIHALER ONCE DAILY fluoxetine 20 mg capsule RxNorm: 171902 1 Capsule(s) PO QD 12/18/19 14 07/17/2014 Inactive cefdinir 300 mg capsule RxNorm: 001675 2 Capsule(s) PO QD 12/12/2013 12/21/2013 Inactive Duragesic 100 mcg/hr transdermal patch RxNorm: 277798 2 Application TD Q48H for pain 12/08/2013 12/07/2013 Inactive Topamax 100 mg tablet RxNorm: 879893 1 Tablet(s) PO QHS 12/04/2013 Inactive Endocet 10 mg-325 mg tablet RxNorm: 4130580 1-2 Tablet(s) PO Q4H 12/26/2013 Inactive PRN PAIN Robaxin 750 mg tablet RxNorm: 868232 2 Tablet(s) PO TID as need ed for spasm 11/07/2013 01/05/2014 Inactive gabapentin 800 mg tablet RxNorm: 025992 1 Tablet(s) PO QD 10/16/2013 04/24/2014 Inactive TAKE ONE TABLET BY MOUTH EVERY DAY Symbicort 160 mcg-4.5 mcg/actuation HFA aerosol inhaler RxNo rm: 8938740 2 Puff(s) INH BID 10/16/2013 04/24/2014 Inactive INHALE 2 PUFFS O RALLY TWO TIMES A DAY Premarin 0.9 mg tablet RxNorm: 445246 1 Tablet(s) PO QD 10/16/2013 Inactive TAKE ONE TABLET BY MOUTH EVERY DAY metformin ER 500 mg tablet,extended release 24 hr RxNorm: 86 0975 1 Tablet(s) PO QD 10/16/2013 04/24/2014 Inactive TAKE ONE TABLET BY MOUTH EVERY DAY Daliresp 500 mcg tablet RxNorm: 4082238 1 Tablet(s) PO QD 10/16/2013 04/24/2014 Inactive Robaxin 750 mg tablet RxNorm: 996591 2 Tablet(s) PO TID as need ed for spasm 10/10/2013 11/06/2013 Inactive Duragesic 100 mcg/hr transdermal patch RxNorm: 971151 2 Application TD Q48H for pain 10/09/2013 No Stop Date Active Soma 350 mg tablet RxNorm: 306927 1 Tablet(s) PO TID 09/27/201310/09 Inactive TAKE ONE TABLET BY MOUTH THREE TIMES A D AY lactulose 10 gram/15 mL oral solution RxNorm: 273405 [address](s) PO QD 09/13/2013 03/07/2015 Inactive TAKE 1 TABLESPOON BY MOUTH ONCE DAILY Duragesic 100 mcg/hr transdermal patch RxNorm: 235733 2 Application TD Q48H for pain 09/06/2013 No Stop Date Active Endocet 10 mg-325 mg tablet RxNorm: 1353985 1-2 Tablet(s) PO Q4H 09/27/2013 Inactive PRN PAIN lancets 28 gauge RxNorm: Miscellaneous As needed for blo od glucose sticks 08/24/2013 No Stop Date Active 16.2 mg-0.1037 mg-0.0194 mg tablet RxNorm: 4413819 Tablet(s) PO PRN for gas and cramping 08/24/2013 01/19/2017 Inactive TAKE TWO TABLET S BY MOUTH THREE TIMES A DAY NEEDED FOR GAS AND CRAMPING Topamax 100 mg tablet RxNorm: 451461 1 Tablet(s) PO QHS 07/31/2013 Inactive Diflucan 100 mg tablet RxNorm: 484564 1 Tablet(s) PO QD 07/27/2013 Inactive cefdinir 300 mg capsule RxNorm: 281890 1 Capsule(s) PO BID 07/26/20 13 08/08/2013 Inactive Daliresp 500 mcg tablet RxNorm: 5011341 1 Tablet(s) PO QD 07/25/2013 10/15/2013 Inactive fluoxetine 40 mg capsule RxNorm: 262352 1 Capsule(s) PO QD 07/25/20 13 01/22/2014 Inactive TAKE ONE CAPSULE BY MOUTH EV JANKI MORNING Senokot-S 8.6 mg-50 mg tablet RxNorm: 1165871 1 Tablet(s) PO BID 10/25/2013 Inactive doxycycline hyclate 100 mg capsule RxNorm: 9697763 1 Capsule(s) PO BID 06/28/2013 07/07/2013 Inactive prednisone 20 mg tablet RxNorm: 665614 1 Tablet(s) PO BID 06/28/2013 07/04/2013 Inactive Zofran 4 mg tablet RxNorm: 871227 1 Tablet(s) PO Q4H prn nausea 03/201307/05/2013 Inactive Spiriva with HandiHaler 18 mcg & inhalation capsules RxNorm: 763516 1 Capsule(s) INH QD 06/26/2013 12/18/2013 Inactive INHALE CONTENTS OF 1 CAPSULE(S) WITH HANDIHALER ONCE DAILY Synthroid 112 mcg tablet RxNorm: 385407 1 Tablet(s) PO QD TAKE ONE TABLET BY MOUTH EVERY DAY 06/19/2013 02/15/2014 Inactive fluoxetine 20 mg capsule RxNorm: 434077 1 Capsule(s) PO QD 06/19/20 13 12/18/2013 Inactive Ventolin HFA 90 mcg/actuation Aerosol Inhaler RxNorm: 4733055 2 Puff(s) INH Q4H 06/05/2013 No Stop Date Active prn Soma 350 mg tablet RxNorm: 005910 1 Tablet(s) PO TID 06/05/201307/04 Inactive TAKE ONE TABLET BY MOUTH THREE TIMES A D AY prednisone 20 mg tablet RxNorm: 640184 1 Tablet(s) PO QD 05/31/2013 0 06/06/2013 Inactive Topamax 100 mg tablet RxNorm: 051372 1 Tablet(s) PO QHS 05/22/2013 Inactive Levaquin 500 mg tablet RxNorm: 067534 1 Tablet(s) PO QD 05/03/2013 Inactive Diflucan 100 mg tablet RxNorm: 816215 1 Tablet(s) PO QD 05/03/2013 Inactive Daliresp 500 mcg tablet RxNorm: 2195526 1 Tablet(s) PO QD 05/01/2013 07/24/2013 Inactive Daliresp 500 mcg tablet RxNorm: 0338105 1 Tablet(s) PO QD 05/01/2013 04/30/2013 Inactive gabapentin 800 mg tablet RxNorm: 564848 1 Tablet(s) PO QD 04/10/2013 10/06/2013 Inactive TAKE ONE TABLET BY MOUTH EVERY DAY metformin ER 500 mg tablet,extended release 24 hr RxNorm: 86 0977 1 Tablet(s) PO QD 04/10/2013 10/06/2013 Inactive TAKE ONE TABLET BY MOUTH EVERY DAY Premarin 0.9 mg tablet RxNorm: 708778 1 Tablet(s) PO QD 04/10/2013 Inactive TAKE ONE TABLET BY MOUTH EVERY DAY Symbicort 160 mcg-4.5 mcg/actuation HFA aerosol inhaler RxNo rm: 5350160 2 Puff(s) INH BID 04/10/2013 10/06/2013 Inactive INHALE 2 PUFFS O RALLY TWO TIMES A DAY Synthroid 112 mcg tablet RxNorm: 434715 1 Tablet(s) PO QD TAKE ONE TABLET BY MOUTH EVERY DAY 04/10/2013 06/18/2013 Inactive Ventolin HFA 90 mcg/actuation Aerosol Inhaler RxNorm: 551105 2 Puff(s) INH Q4H 04/10/2013 No Stop Date Active prn fentanyl 100 mcg/hr transdermal patch RxNorm: 461756 1 Unit Dos e TD QD 04/03/2013 05/02/2013 Inactive Endocet 10 mg-325 mg tablet RxNorm: 1475443 1-2 Tablet(s) PO Q4H 05/02/2013 Inactive PRN PAIN Topamax 100 mg tablet RxNorm: 347373 1 Tablet(s) PO QHS 03/13/2013 Inactive Reglan 10 mg tablet RxNorm: 141391 1 Tablet(s) PO QID b efore meals and at bedtime 03/13/2013 04/09/2015 Inactive fluoxetine 20 mg capsule RxNorm: 068635 1 Capsule(s) PO QD 02/28/20 13 05/27/2013 Inactive Ventolin HFA 90 mcg/actuation Aerosol Inhaler RxNorm: 719604 2 Puff(s) INH Q4H 02/13/2013 No Stop Date Active prn fluoxetine 40 mg capsule RxNorm: 217918 1 Capsule(s) PO QD 01/31/20 13 07/24/2013 Inactive TAKE ONE CAPSULE BY MOUTH EV JANKI MORNING Soma 350 mg tablet RxNorm: 696868 1 Tablet(s) PO TID 01/20/201302/18 Inactive TAKE ONE TABLET BY MOUTH THREE TIMES A D AY Endocet 10 mg-325 mg tablet RxNorm: 3935619 1-2 Tablet(s) PO Q4H 02/06/2013 Inactive PRN PAIN MS Contin 200 mg tablet,extended release RxNorm: 476686 1 Table t(s) PO BID 01/18/2013 02/06/2013 Inactive Ventolin HFA 90 mcg/actuation Aerosol Inhaler RxNorm: 150719 2 Puff(s) INH Q4H 01/04/2013 No Stop Date Active prn Spiriva with HandiHaler 18 mcg & inhalation capsules RxNorm: 518333 1 Capsule(s) INH QD 12/29/2012 06/25/2013 Inactive INHALE CONTENTS OF 1 CAPSULE(S) WITH HANDIHALER ONCE DAILY Spiriva with HandiHaler 18 mcg & inhalation capsules RxNorm: 457058 1 Capsule(s) INH QD 12/26/2012 12/28/2012 Inactive INHALE CONTENTS OF 1 CAPSULE(S) WITH HANDIHALER ONCE DAILY Synthroid 112 mcg tablet RxNorm: 556357 Tablet(s) PO TA KE ONE TABLET BY MOUTH EVERY DAY 12/26/2012 04/09/2013 Inactive Endocet 10 mg-325 mg tablet RxNorm: 4056488 1-2 Tablet(s) PO Q4H 01/17/2013 Inactive PRN PAIN MS Contin 200 mg tablet,extended release RxNorm: 203789 1 Table t(s) PO BID 12/21/2012 01/17/2013 Inactive fluoxetine 20 mg capsule RxNorm: 607351 1 Capsule(s) PO QD 12/06/19 13 02/26/2013 Inactive Synthroid 112 mcg tablet RxNorm: 415464 1 Tablet(s) PO QD 12/06/2012 02/12/2019 Inactive TAKE ONE TABLET BY MOUTH EVERY DAY Ventolin HFA 90 mcg/actuation Aerosol Inhaler RxNorm: 357505 2 Puff(s) INH Q4H 12/06/2012 No Stop Date Active prn Reglan 10 mg tablet RxNorm: 181739 1 Tablet(s) PO QID b efore meals and at bedtime 11/24/2012 03/12/2013 Inactive Topamax 100 mg tablet RxNorm: 741276 1 Tablet(s) PO QHS 11/16/2012 Inactive Ventolin HFA 90 mcg/actuation Aerosol Inhaler RxNorm: 830790 2 Puff(s) INH Q4H 11/09/2012 No Stop Date Active prn gabapentin 800 mg tablet RxNorm: 538786 1 Tablet(s) PO QD 10/27/2012 04/09/2013 Inactive TAKE ONE TABLET BY MOUTH EVERY DAY metformin ER 500 mg tablet,extended release 24 hr RxNorm: 86 0977 1 Tablet(s) PO QD 10/27/2012 04/09/2013 Inactive TAKE ONE TABLET BY MOUTH EVERY DAY Symbicort 160 mcg-4.5 mcg/actuation HFA Aerosol Inhaler RxNo rm: 1930834 2 Puff(s) INH BID 10/27/2012 04/09/2013 Inactive INHALE 2 PUFFS O RALLY TWO TIMES A DAY Premarin 0.9 mg tablet RxNorm: 128375 1 Tablet(s) PO QD 10/27/2012 Inactive TAKE ONE TABLET BY MOUTH EVERY DAY Endocet 10 mg-325 mg tablet RxNorm: 7736381 1-2 Tablet(s) PO Q4H 11/24/2012 Inactive PRN PAIN MS Contin 200 mg tablet,extended release RxNorm: 397465 1 Table t(s) PO BID 10/26/2012 11/24/2012 Inactive Soma 350 mg tablet RxNorm: 802002 1 Tablet(s) PO TID 10/04/201211/02 Inactive TAKE ONE TABLET BY MOUTH THREE TIMES A D AY Ventolin HFA 90 mcg/actuation Aerosol Inhaler RxNorm: 855116 2 Puff(s) INH Q4H 10/03/2012 No Stop Date Active prn Daliresp 500 mcg tablet RxNorm: 9196089 1 Tablet(s) PO QD 09/28/2012 09/27/2012 Inactive Daliresp 500 mcg tablet RxNorm: 1772841 1 Tablet(s) PO QD 09/28/2012 04/25/2013 Inactive fluoxetine 20 mg capsule RxNorm: 503826 1 Capsule(s) PO QD 09/05/2012/06/2012 Inactive Topamax 50 mg tablet RxNorm: 878809 Tablet(s) PO for 1w k then 1 po q HS for 1wk then 2 po q HS 08/29/2012 09/27/2012 Inactive TAKE 1/2 TABLET BY MOUTH AT BEDTIME FOR 1 WEEK, THEN 1 TABLET AT BEDTIME FOR 1 WEEK, THEN 2 TABLETS AT BEDTIME Topamax 100 mg tablet RxNorm: 853761 1 Tablet(s) PO QHS 08/29/2012 Inactive Ventolin HFA 90 mcg/actuation Aerosol Inhaler RxNorm: 582420 2 Puff(s) INH Q4H 08/19/2012 No Stop Date Active prn Ventolin HFA 90 mcg/actuation Aerosol Inhaler RxNorm: 080797 2 Puff(s) INH Q4H 08/15/2012 No Stop Date Active prn Synthroid 112 mcg tablet RxNorm: 768862 1 Tablet(s) PO QD 08/10/2012 11/07/2012 Inactive TAKE ONE TABLET BY MOUTH EVERY DAY Synthroid 112 mcg tablet RxNorm: 907114 1 Tablet(s) PO QD 08/01/2012 08/09/2012 Inactive TAKE ONE TABLET BY MOUTH EVERY DAY Reglan 10 mg tablet RxNorm: 981767 1 Tablet(s) PO QID b efore meals and at bedtime 08/01/2012 11/23/2012 Inactive fluoxetine 40 mg capsule RxNorm: 009045 1 Capsule(s) PO QD 08/01/20 12 01/27/2013 Inactive TAKE ONE CAPSULE BY MOUTH EV JANKI MORNING Ventolin HFA 90 mcg/actuation Aerosol Inhaler RxNorm: 000501 2 Puff(s) INH Q4H 08/01/2012 No Stop Date Active prn Soma 350 mg tablet RxNorm: 958578 1 Tablet(s) PO TID 07/20/201208/18 Inactive TAKE ONE TABLET BY MOUTH THREE TIMES A D AY Spiriva with HandiHaler 18 mcg & inhalation capsules RxNorm: 417673 1 Capsule(s) INH 07/01/2012 12/25/2012 Inactive INHALE CONTENTS OF 1 CAPSULE(S) WITH HANDIHALER ONCE DAILY Zithromax 250 mg Tab RxNorm: 676663 2 Tablet(s) PO QD 06/28/201206/22 Inactive MS Contin 200 mg tablet,extended release RxNorm: 291910 1 Table t(s) PO BID 06/28/2012 07/27/2012 Inactive Endocet 10 mg-325 mg tablet RxNorm: 6702812 1-2 Tablet(s) PO Q4H 07/27/2012 Inactive PRN PAIN Topamax 100 mg tablet RxNorm: 329325 1 Tablet(s) PO QHS 06/28/2012 Inactive 16.2 mg-0.1037 mg-0.0194 mg tablet RxNorm: 3454419 Tablet(s) PO PRN for gas and cramping 06/08/2012 08/23/2013 Inactive TAKE TWO TABLET S BY MOUTH THREE TIMES A DAY NEEDED FOR GAS AND CRAMPING Ventolin HFA 90 mcg/actuation Aerosol Inhaler RxNorm: 163388 2 Puff(s) INH Q4H 05/23/2012 No Stop Date Active prn Ventolin HFA 90 mcg/actuation Aerosol Inhaler RxNorm: 372411 2 Puff(s) INH Q4H 05/11/2012 No Stop Date Active prn Synthroid 112 mcg tablet RxNorm: 030409 1 Tablet(s) PO QD 05/09/2012 07/31/2012 Inactive TAKE ONE TABLET BY MOUTH EVERY DAY gabapentin 800 mg tablet RxNorm: 098520 1 Tablet(s) PO QD 05/09/2012 10/26/2012 Inactive TAKE ONE TABLET BY MOUTH EVERY DAY fluoxetine 40 mg capsule RxNorm: 181154 1 Capsule(s) PO QD 05/09/2007/31/2012 Inactive TAKE ONE CAPSULE BY MOUTH EV JANKI MORNING metformin ER 500 mg tablet,extended release 24 hr RxNorm: 86 0977 1 Tablet(s) PO QD 05/09/2012 10/26/2012 Inactive TAKE ONE TABLET BY MOUTH EVERY DAY Premarin 0.9 mg tablet RxNorm: 448792 1 Tablet(s) PO QD 05/09/2012 Inactive TAKE ONE TABLET BY MOUTH EVERY DAY Symbicort 160 mcg-4.5 mcg/actuation HFA Aerosol Inhaler RxNo rm: 8616425 2 Puff(s) INH BID 05/09/2012 10/26/2012 Inactive INHALE 2 PUFFS O RALLY TWO TIMES A DAY Endocet 10 mg-325 mg Tab RxNorm: 2991782 1-2 Tablet(s) PO Q4H 04/2705/26/2012 Inactive PRN PAIN MS Contin 200 mg Tab RxNorm: 597510 1 Tablet(s) PO BID 04/26/201202/2012 Inactive Ventolin HFA 90 mcg/actuation Aerosol Inhaler RxNorm: 087782 2 Puff(s) INH Q4H 04/25/2012 05/10/2012 Inactive prn Soma 350 mg tablet RxNorm: 602235 2 Tablet(s) PO TID 04/19/201207/19 Inactive TAKE ONE TABLET BY MOUTH THREE TIMES A D AY Ventolin HFA 90 mcg/actuation Aerosol Inhaler RxNorm: 150242 2 Puff(s) INH Q4H 04/12/2012 04/24/2012 Inactive prn Reglan 10 mg tablet RxNorm: 018045 1 Tablet(s) PO QID b efore meals and at bedtime 04/11/2012 07/31/2012 Inactive MS Contin 200 mg Tab RxNorm: 155421 1 Tablet(s) PO BID 03/30/201202/2012 Inactive Endocet 10 mg-325 mg Tab RxNorm: 7373494 1-2 Tablet(s) PO Q4H 03/3004/26/2012 Inactive PRN PAIN MS Contin 200 mg Tab RxNorm: 054694 1 Tablet(s) PO BID 03/02/201206/2012 Inactive Endocet 10 mg-325 mg Tab RxNorm: 4387843 1-2 Tablet(s) PO Q4H 03/0203/29/2012 Inactive PRN PAIN Daliresp 500 mcg tablet RxNorm: 4716587 1 Tablet(s) PO QD 03/01/2012 09/28/2012 Inactive MS Contin 200 mg Tab RxNorm: 065121 1 Tablet(s) PO BID 02/02/201208/2012 Inactive Endocet 10 mg-325 mg Tab RxNorm: 6101046 1-2 Tablet(s) PO Q4H 02/0103/01/2012 Inactive PRN PAIN fluoxetine 40 mg capsule RxNorm: 451829 1 Capsule(s) PO QD 02/02/2008/01/2012 Inactive TAKE ONE CAPSULE BY MOUTH EV JANKI MORNING Synthroid 112 mcg Tab RxNorm: 956261 1 Tablet(s) PO QD 01/18/2012 Inactive TAKE ONE TABLET BY MOUTH EVERY DAY lactulose 10 gram/15 mL oral solution RxNorm: 419753 [address]s) PO QD 01/18/2012 No Stop Date Active TAKE 1 TABLESPOON BY MOUTH ONCE DAILY Ventolin HFA 90 mcg/actuation Aerosol Inhaler RxNorm: 743735 2 Puff(s) INH Q4H 01/18/2012 04/11/2012 Inactive prn MS Contin 200 mg Tab RxNorm: 207408 1 Tablet(s) PO BID 01/05/201210/2012 Inactive Endocet 10 mg-325 mg Tab RxNorm: 4131105 1-2 Tablet(s) PO Q4H 01/0502/01/2012 Inactive PRN PAIN ProAir HFA 90 mcg/Actuation Aerosol Inhaler RxNorm: 706188 2 Pu ff(s) INH Q4H 12/21/2011 No Stop Date Active prn for wheezing or shortness of breath Spiriva with HandiHaler 18 mcg & inhalation Caps RxNorm: 580 261 1 Capsule(s) INH 12/21/2011 06/30/2012 Inactive INHALE CONTENTS OF 1 CAPSULE(S) WITH HANDIHALER ONCE DAILY Reglan 10 mg Tab RxNorm: 538703 1 Tablet(s) PO QID before meals and at bedtime 12/21/2011 04/10/2012 Inactive Synthroid 112 mcg Tab RxNorm: 450246 1 Tablet(s) PO QD 12/21/2011 Inactive TAKE ONE TABLET BY MOUTH EVERY DAY Endocet 10 mg-325 mg Tab RxNorm: 9015548 1-2 Tablet(s) PO Q4H 11/2512/24/2011 Inactive PRN PAIN MS Contin 200 mg Tab RxNorm: 406204 1 Tablet(s) PO BID 11/25/201112/2011 Inactive lactulose 10 gram/15 mL Oral Soln RxNorm: 825561 Milliliter(s) PO 1 No Stop Date Active TAKE 1 TABLESPOON BY MOUTH O NCE DAILY lactulose 10 gram/15 mL Oral Soln RxNorm: 215230 Milliliter(s) PO 1 12/12/2010 11/20/2011 Inactive TAKE 1 TABLESPOON BY MOUTH O NCE DAILY Premarin 0.9 mg Tab RxNorm: 988092 1 Tablet(s) PO QD 10/12/201105/08 Inactive TAKE ONE TABLET BY MOUTH EVERY DAY fluoxetine 20 mg capsule RxNorm: 353582 1 Capsule(s) PO QD 10/12/20 11 09/05/2012 Inactive TAKE ONE CAPSULE BY MOUTH EV JANKI DAY Synthroid 112 mcg Tab RxNorm: 374997 1 Tablet(s) PO QD 10/12/2011 Inactive TAKE ONE TABLET BY MOUTH EVERY DAY metformin ER 500 mg 24 hr Tab RxNorm: 355737 1 Tablet(s) PO QD 09/2311/10/2011 Inactive TAKE ONE TABLET BY MOUTH GLYNN RY DAY Synthroid 112 mcg Tab RxNorm: 373432 1 Tablet(s) PO QD 10/12/2011 Inactive TAKE ONE TABLET BY MOUTH EVERY DAY metformin ER 500 mg 24 hr Tab RxNorm: 372464 1 Tablet(s) PO QD 09/2310/11/2011 Inactive TAKE ONE TABLET BY MOUTH GLYNN DAY Prevacid 30 mg Cap RxNorm: 940855 Capsule(s) PO 10/12/2011 01/25/2012 Inactive TAKE ONE CAPSULE BY MOUTH EVERY DAY Symbicort 160 mcg-4.5 mcg/actuation HFA Aerosol Inhaler RxNo rm: 5207804 2 Puff(s) INH BID 10/12/2011 05/08/2012 Inactive INHALE 2 PUFFS O RALLY TWO TIMES A DAY gabapentin 800 mg Tab RxNorm: 861426 1 Tablet(s) PO QD 10/12/2011 Inactive TAKE ONE TABLET BY MOUTH EVERY DAY MS Contin 200 mg Tab RxNorm: 585674 1 Tablet(s) PO BID 09/23/201111/2010 Inactive Endocet 10 mg-325 mg Tab RxNorm: 9649932 1-2 Tablet(s) PO Q4H 09/2310/22/2011 Inactive PRN PAIN Endocet 10 mg-325 mg Tab RxNorm: 0438100 1-2 Tablet(s) PO Q4H 08/2109/19/2011 Inactive PRN PAIN MS Contin 200 mg Tab RxNorm: 028160 1 Tablet(s) PO BID 08/21/2011 Inactive Diflucan 100 mg Tab RxNorm: 343259 1 Tablet(s) PO QD 08/10/201108/16 Inactive cefdinir 300 mg Cap RxNorm: 938130 2 Capsule(s) PO QD 08/10/201107/24 Inactive Reglan 10 mg Tab RxNorm: 461372 1 Tablet(s) PO AC & HS 07/15/2011 Inactive Endocet 10 mg-325 mg Tab RxNorm: 9475424 1-2 Tablet(s) PO Q4H 07/1508/13/2011 Inactive PRN PAIN One Touch Ultra Test strips RxNorm: Miscellaneous BID 06/11/2011 1 01/16/2014 Inactive TEST TWO TIMES A DAY lactulose 10 gram/15 mL Oral Soln RxNorm: 801139 Milliliter(s) PO 0 06/10/2011 10/11/2011 Inactive TAKE 1 TABLESPOON BY MOUTH O NCE DAILY Chantix Continuing Month Aníbal 1 mg Tab RxNorm: 842397 Tablet(s) PO 0 06/10/2011 11/02/2011 Inactive TAKE DIRECTED - PER [employer] GE INSTRUCTIONS fluoxetine 40 mg Cap RxNorm: 410894 Capsule(s) PO 06/10/2011 02/02/20 12 Inactive TAKE ONE CAPSULE BY MOUTH EVERY MORNING Chantix Continuing Month Aníbal 1 mg Tab RxNorm: 568212 Ta blet(s) PO TAKE DIRECTED - PER PACKAGE INSTRUCTIONS 05/13/2011 06/09/2011 Inactive Soma 350 mg Tab RxNorm: 868484 Tablet(s) PO TAKE ON E TABLET BY MOUTH THREE TIMES A DAY 05/13/2011 04/18/2012 Inactive Chantix Continuing Month Aníbal 1 mg Tab RxNorm: 610910 Ta blet(s) PO as directed per package instructions. 04/22/2011 05/12/2011 Inactive Symbicort 160 mcg-4.5 mcg/Actuation HFA Aerosol Inhaler RxNo rm: [id number] HFA Aerosol Inhaler INH INHALE 2 PUFFS ORALLY TWO TIMES A DAY 04/13/2011 Inactive Synthroid 112 mcg Tab RxNorm: 390966 Tablet(s) PO TAKE ONE TABLET BY MOUTH EVERY DAY 04/13/2011 10/12/2011 Inactive Premarin 0.9 mg Tab RxNorm: 494861 Tablet(s) PO TAKE ON E TABLET BY MOUTH EVERY DAY 04/13/2011 10/12/2011 Inactive gabapentin 800 mg Tab RxNorm: 956897 Tablet(s) PO TAKE ONE TABLET BY MOUTH EVERY DAY 04/13/2011 10/12/2011 Inactive Prevacid 30 mg Cap RxNorm: 895069 1 Capsule(s) PO QD 04/13/201110/11 Inactive Spiriva with HandiHaler 18 mcg & inhalation Caps RxNorm: 580 261 Capsule(s) INH INHALE CONTENTS OF 1 CAPSULE(S) WITH HANDIHALER ONCE DAILY 04/13/2011 12/21/2011 Inactive metformin ER 500 mg 24 hr Tab RxNorm: 167686 Tablet(s) PO TAKE ONE TABLET BY MOUTH EVERY DAY 04/13/2011 10/12/2011 Inactive Soma 350 mg Tab RxNorm: 031697 1 Tablet(s) PO QID 03/30/2011 02/13/20 19 Inactive fluoxetine 20 mg Cap RxNorm: 170742 Capsule(s) PO TAKE ONE CAPSULE BY MOUTH EVERY DAY 03/25/2011 10/12/2011 Inactive cefdinir 300 mg Cap RxNorm: 429417 2 Capsule(s) PO QD 03/19/201105/2011 Inactive 16.2 mg-0.1037 mg-0.0194 mg Tab RxNorm: 5879967 2 Tablet(s) PO TID PRN for gas and cramping 03/16/2011 07/13/2011 Inactive Soma 350 mg Tab RxNorm: 534126 2 Tablet(s) PO TID 03/16/2011 03/29/20 11 Inactive Chantix Starting Month Aníbal 0.5 mg (11)-1 mg (3x14) Tab s in a Dose Pack RxNorm: 567721 Tablet(s) PO as directed 03/02/2011 No Stop Date Active diazepam 10 mg Tab RxNorm: 751294 1 Tablet(s) PO BID 02/10/201101/19 Inactive Zofran 4 mg tablet RxNorm: 451694 1 Tablet(s) PO Q4H prn nausea 02/16/2011 Inactive Diflucan 100 mg Tab RxNorm: 183230 1 Tablet(s) PO QD 01/18/201101/24 Inactive Premarin 0.625 mg/g Vaginal Cream RxNorm: 890110 VAG In sert 1gm vaginally at bedtime 3 times weekly 01/18/2011 02/12/2019 Inactive loratadine 10 mg Tab RxNorm: 6629150 1 Tablet(s) PO QD 12/17/201003/2012 Inactive Spiriva with HandiHaler 18 mcg & inhalation Caps RxNorm: 580 261 1 Capsule(s) INH QD 12/17/2010 04/12/2011 Inactive Diflucan 100 mg Tab RxNorm: 090366 1 Tablet(s) PO QD 12/17/201012/23 Inactive diazepam 10 mg Tab RxNorm: 532306 1 Tablet(s) PO BID and PRN 201002/12/2019 Inactive One Touch Ultra Test Strips RxNorm: InVt BID Zainab t blood sugar at least twice daily. 11/11/2010 06/11/2011 Inactive fluoxetine 40 mg Cap RxNorm: 436696 1 Capsule(s) PO QAM 11/11/2010 Inactive diazepam 10 mg Tab RxNorm: 680294 1 Tablet(s) PO BID and PRN 200911/12/2010 Inactive Bactrim DS 800 mg-160 mg Tab RxNorm: 099037 1 Tablet(s) PO BID 09/2210/15/2010 Inactive fluoxetine 20 mg Cap RxNorm: 739423 1 Capsule(s) PO QD 10/02/201008/2011 Inactive Bactrim DS 800 mg-160 mg Tab RxNorm: 217624 1 Tablet(s) PO BID 01/201010/03/2010 Inactive Zofran 4 mg Tab RxNorm: 164590 1 Tablet(s) PO Q4H prn nausea 200910/16/2010 Inactive 16.2 mg-0.1037 mg-0.0194 mg Tab RxNorm: 3755400 2 Tablet(s) PO TID PRN for gas and cramping 09/17/2010 10/21/2010 Inactive Gabapentin 800 mg Tab RxNorm: 832453 1 Tablet(s) PO QD 09/16/2010 Inactive ProAir HFA 90 mcg/Actuation Aerosol Inhaler RxNorm: 092546 2 Puff(s) INH Q4H prn shortness of breath 09/15/2010 12/13/2010 Inactive gabapentin 800 mg Tab RxNorm: 319851 1 Tablet(s) PO QD 09/15/2010 Inactive Prevacid 30 mg Cap RxNorm: 317581 1 Capsule(s) PO QD 09/15/201004/12 Inactive loratadine 10 mg Tab RxNorm: 7187422 1 Tablet(s) PO QD 09/15/2010 Inactive Premarin 0.9 mg Tab RxNorm: 912560 1 Tablet(s) PO QD 09/15/201004/12 Inactive Synthroid 112 mcg Tab RxNorm: 287407 1 Tablet(s) PO QD 09/15/2010 Inactive metformin ER 500 mg 24 hr Tab RxNorm: 817613 1 Tablet(s) PO QD 08/2304/12/2011 Inactive Symbicort 160 mcg-4.5 mcg/Actuation Inhalation HFA Aer osol Inhaler RxNorm: 4588469 2 Puff(s) INH BID 09/15/2010 04/12/2011 Inactive diazepam 10 mg Tab RxNorm: 113837 1 Tablet(s) PO BID and PRN 200910/13/2010 Inactive Phentermine 37.5 mg Cap RxNorm: 188218 1 Capsule(s) PO QD 09/02/2010 11/02/2011 Inactive ProAir HFA 90 mcg/Actuation Aerosol Inhaler RxNorm: 323558 2 Puff(s) INH Q4H prn shortness of breath 08/07/2010 No Stop Date Active Premarin 0.9 mg Tab RxNorm: 612679 1 Tablet(s) PO QD 08/07/201009/14 Inactive Loratadine 10 mg Tab RxNorm: 8138427 1 Tablet(s) PO QD 08/07/2010 Inactive Lactulose 10 gram/15 mL Oral Soln RxNorm: 869174 1 Unit Dose PO QD 08/07/2010 02/12/2019 Inactive Zofran 4 mg Tab RxNorm: 362389 1 Tablet(s) PO Q4H prn nausea 2009 No Stop Date Active Gabapentin 800 mg Tab RxNorm: 221407 1 Tablet(s) PO QD 08/07/2010 Inactive Synthroid 112 mcg Tab RxNorm: 550081 1 Tablet(s) PO QD 08/07/2010 Inactive Metformin ER 500 mg 24 hr Tab RxNorm: 349313 1 Tablet(s) PO QD 07/2309/14/2010 Inactive Vitamin D 1,000 unit Tab RxNorm: 068590 1 Tablet(s) PO TID 08/07/2002/12/2019 Inactive Symbicort 160 mcg-4.5 mcg/Actuation Inhalation HFA Aer osol Inhaler RxNorm: 6626137 2 Puff(s) INH BID 08/07/2010 09/14/2010 Inactive Prevacid 30 mg Cap RxNorm: 647122 1 Capsule(s) PO QD 08/07/201009/14 Inactive Metformin ER 500 mg 24 hr Tab RxNorm: 360920 1 Tablet(s) PO QD 06/2308/06/2010 Inactive Vitamin D 1,000 unit Tab RxNorm: 785268 1 Tablet(s) PO TID 07/14/2008/06/2010 Inactive Synthroid 112 mcg Tab RxNorm: 132195 1 Tablet(s) PO QD 07/14/2010 Inactive Lactulose 10 gram/15 mL Oral Soln RxNorm: 829235 1 Unit Dose PO QD 07/14/2010 08/06/2010 Inactive Levaquin 500 mg Tab RxNorm: 522496 1 Tablet(s) PO QD 07/14/201007/27 Inactive Premarin 0.9 mg Tab RxNorm: 500641 1 Tablet(s) PO QD 07/14/201008/06 Inactive ProAir HFA 90 mcg/Actuation Aerosol Inhaler RxNorm: 984197 2 Puff(s) INH Q4H prn shortness of breath 07/14/2010 No Stop Date Active Prevacid 30 mg Cap RxNorm: 147281 1 Capsule(s) PO QD 07/14/201008/06 Inactive Zofran 4 mg Tab RxNorm: 154723 1 Tablet(s) PO Q4H prn nausea 2009 No Stop Date Active Symbicort 160 mcg-4.5 mcg/Actuation Inhalation HFA Aer osol Inhaler RxNorm: 6120170 2 Puff(s) INH BID 07/14/2010 08/06/2010 Inactive Loratadine 10 mg Tab RxNorm: 1168795 1 Tablet(s) PO QD 07/14/2010 Inactive Gabapentin 800 mg Tab RxNorm: 173465 1 Tablet(s) PO QD 07/14/2010 Inactive Metformin ER 500 mg 24 hr Tab RxNorm: 077294 1 Tablet(s) PO 010 07/13/2010 Inactive Diazepam 10 mg Tab RxNorm: 546903 1 Tablet(s) PO BID and PRN 200909/06/2010 Inactive Premarin 0.9 mg Tab RxNorm: 667304 1 Tablet(s) PO QD 06/09/201007/13 Inactive Zofran 4 mg Tab RxNorm: 137683 1 Tablet(s) PO Q4H prn nausea 2009 No Stop Date Active ProAir HFA 90 mcg/Actuation Aerosol Inhaler RxNorm: 373609 2 Puff(s) INH Q4H prn shortness of breath 06/09/2010 No Stop Date Active Gabapentin 800 mg Tab RxNorm: 993750 1 Tablet(s) PO QD 06/09/2010 Inactive Loratadine 10 mg Tab RxNorm: 7983991 1 Tablet(s) PO QD 06/09/2010 Inactive Lactulose 10 gram/15 mL Oral Soln RxNorm: 720598 1 Unit Dose PO QD 06/09/2010 07/13/2010 Inactive Prevacid 30 mg Cap RxNorm: 729826 1 Capsule(s) PO QD 06/09/201007/13 Inactive Synthroid 112 mcg Tab RxNorm: 913018 1 Tablet(s) PO QD 06/09/2010 Inactive Symbicort 160 mcg-4.5 mcg/Actuation Inhalation HFA Aer osol Inhaler RxNorm: 1126343 2 Puff(s) INH BID 06/09/2010 07/13/2010 Inactive Omnicef 300 mg Cap RxNorm: 570623 2 Capsule(s) PO QD 05/07/201005/20 Inactive Metformin 500 mg Tab RxNorm: 323335 1 Tablet(s) PO QD 05/06/201005/22 Inactive ProAir HFA 90 mcg/Actuation Aerosol Inhaler RxNorm: 442792 2 Puff(s) INH Q4H prn shortness of breath 05/06/2010 No Stop Date Active lactulose 10 gram/15 mL Oral Soln RxNorm: 832788 1 Unit Dose PO QD 05/06/2010 06/10/2011 Inactive Loratadine 10 mg Tab RxNorm: 2682191 1 Tablet(s) PO QD 05/06/2010 Inactive Synthroid 112 mcg Tab RxNorm: 799759 1 Tablet(s) PO QD 05/06/2010 Inactive Symbicort 160 mcg-4.5 mcg/Actuation Inhalation HFA Aer osol Inhaler RxNorm: 9196540 2 Puff(s) INH BID 05/06/2010 06/08/2010 Inactive Gabapentin 800 mg Tab RxNorm: 117251 1 Tablet(s) PO QD 05/06/2010 Inactive 16.2 mg-0.1037 mg-0.0194 mg Tab RxNorm: 3010712 2 Tablet(s) PO TID PRN for gas and cramping 05/06/2010 05/12/2010 Inactive Zofran 4 mg Tab RxNorm: 700432 1 Tablet(s) PO Q4H prn nausea 200904/13/2010 Inactive MS Contin 60 mg Tab RxNorm: 478074 3 Tablet(s) PO BID 04/09/201004/22 Inactive Soma 350 mg Tab RxNorm: 359662 2 Tablet(s) PO TID 04/09/2010 05/08/20 10 Inactive Symbicort 160 mcg-4.5 mcg/Actuation Inhalation HFA Aer osol Inhaler RxNorm: 5665850 2 Puff(s) INH BID 04/08/2010 05/05/2010 Inactive Doxycycline 100 mg Cap RxNorm: 7223673 1 Capsule(s) PO BID 04/08/20 10 04/17/2010 Inactive Triamterene-Hydrochlorothiazide 37.5 mg-25 mg Cap RxNorm: 19 8316 1 Capsule(s) PO QAM 04/08/2010 09/04/2010 Inactive fluoxetine 40 mg Cap RxNorm: 453033 1 Capsule(s) PO QAM 04/08/2010 Inactive Morphine SR 120 mg multiphase 24 hr Cap RxNorm: 674009 1 Capsul e(s) PO 03/11/2010 04/07/2010 Inactive Endocet 10 mg-325 mg Tab RxNorm: 6888499 1-2 Tablet(s) PO Q4H [place] PAIN 03/11/2010 04/09/2010 Inactive Savella 100 mg Tab RxNorm: 661614 1 Tablet(s) PO BID 03/10/201004/09 Inactive Soma 350 mg Tab RxNorm: 773135 1 Tablet(s) PO TID prn spasm 010 04/09/2010 Inactive Savella 100 mg Tab RxNorm: 341796 1 Tablet(s) PO BID 02/03/201004/09 Inactive Aspirin 81 mg Tab RxNorm: 037164 1 Tablet(s) PO QD No Start Date Active Zyrtec 10 mg Tab RxNorm: 1123970 1 Tablet(s) PO QD No Start Date Active One Touch Ultra Test Strips RxNorm: Misc test at least t wice daily. No Start Date Active coenzyme Q10 200 mg capsule RxNorm: 575476 1 Capsule(s) PO QD No Star t Date Active One Touch Ultra Test Strips RxNorm: InVt BID Zainab t blood sugar at least twice daily. No Start Date 11/10/2010 Inactive Gabapentin 800 mg Tab RxNorm: 191024 1 Tablet(s) PO QD No Start Date 05/05/2010 Inactive Abilify 5 mg tablet RxNorm: 217766 1 Tablet(s) PO QD No Start Date Inactive Chantix 1 mg Tab RxNorm: 217404 1 Tablet(s) PO BID No Start Date 10/22 Inactive Ozempic 0.25 mg or 0.5 mg (2 mg/1.5 mL) subcutaneous p en injector RxNorm: 4130212 .25 Milligram(s) SQ QW No Start Date 07/04/2019 Inactive lancets 28 gauge RxNorm: Miscellaneous As needed for blo od glucose sticks No Start Date 08/23/2013 Inactive potassium chloride ER 20 mEq tablet,extended release RxNorm: 574671 2 Tablet(s) PO QD No Start Date 09/26/2018 Inactive Ventolin HFA 90 mcg/actuation Aerosol Inhaler RxNorm: 939464 2 Puff(s) INH Q4H prn No Start Date 01/17/2012 Inactive potassium chloride ER 20 mEq tablet,extended release RxNorm: 332646 2 Tablet(s) PO QD No Start Date 10/19/2018 Inactive Januvia 100 mg tablet RxNorm: 734458 1 Tablet(s) PO QD No Start Date 09/10/2015 Inactive Medrol (Aníbal) 4 mg Tabs in a Dose Pack RxNorm: 139550 Tablet(s) PO N o Start Date 08/09/2011 Inactive as directed Zithromax Z-Aníbal 250 mg Tab RxNorm: 682500 Tablet(s) PO No Start Date 01/25/2012 Inactive as directed vitamin B6-vitamin E-magnesium tablet RxNorm: 1 Tablet(s ) PO QHS with INH No Start Date 03/30/2018 Inactive prednisone 20 mg Tab RxNorm: 066122 1 Tablet(s) PO TID for 1wk then 1 po BID for 1wk No Start Date 01/25/2012 Inactive furosemide 40 mg tablet RxNorm: 666334 1 Tablet(s) PO QAM No Start Date 10/09/2018 Inactive Vitamin D3 1000 units Capsule RxNorm: 1 Capsule(s) PO TID No S tart Date 03/19/2015 Inactive Zofran 4 mg Tab RxNorm: 919970 1 Tablet(s) PO Q4H prn nausea No Sta rt Date 04/13/2010 Inactive Premarin 0.625 mg/g Vaginal Cream RxNorm: 638107 1 Gram (s) VAG QHS 3 times a week No Start Date 09/22/2017 Inactive oxycodone 10 mg tablet RxNorm: 9711636 1-2 Tablet(s) PO QID as n eeded for pain No Start Date 11/04/2015 Inactive Nicoderm CQ 21 mg/24 hr daily Patch RxNorm: 360975 1 Applicatio n TD QD No Start Date 08/05/2015 Inactive Topamax 50 mg tablet RxNorm: 509381 1/2 Tablet(s) PO QH S for 1wk then 1 po q HS for 1wk then 2 po q HS No Start Date 06/27/2012 Inactive Chantix Starting Month Aníbal 0.5 mg (11)-1 mg (3x14) Tab s in a Dose Pack RxNorm: 028226 Tablet(s) PO as directed No Start Date 03/01/2011 Inactive Trulicity 0.75 mg/0.5 mL subcutaneous pen injector RxNorm: 1 535854 Milliliter(s) SQ No Start Date 07/04/2019 Inactive Medrol (Aníbal) 4 mg Tabs in a Dose Pack RxNorm: 602558 Tablet(s) PO N o Start Date 01/25/2012 Inactive as directed Duragesic 100 mcg/hr Transderm Patch RxNorm: 414359 2 A pplication TD Q48H for pain No Start Date 09/05/2013 Inactive Premarin 0.9 mg Tab RxNorm: 591818 1 Tablet(s) PO QD No Start Date Inactive Zithromax Z-Aníbal 250 mg Tab RxNorm: 489404 Tablet(s) PO as direc chinmay No Start Date 01/25/2012 Inactive ondansetron 8 mg disintegrating tablet RxNorm: 190470 1 Tablet(s) PO Q6H as needed No Start Date 10/10/2018 Inactive oxycodone 15 mg tablet RxNorm: 7332904 1 Tablet(s) PO QID as nee ded for pain No Start Date 03/05/2019 Inactive ProAir HFA 90 mcg/Actuation Aerosol Inhaler RxNorm: 335557 2 Puff(s) INH Q4H prn for wheezing or shortness of breath No Start Date 12/21/2011 Inactive pravastatin 40 mg tablet RxNorm: 575777 1/2 Tablet(s) PO QOD No Sta rt Date 04/09/2015 Inactive ipratropium-albuterol 0.5 mg-3 mg(2.5 mg base)/3 mL ne bulization soln RxNorm: 8584574 1 Unit Dose INH Q4H as needed No Start Date 09/09/2016 Inactive furosemide 40 mg tablet RxNorm: 038592 1 Tablet(s) PO QAM as ne eded No Start Date 09/24/2019 Inactive Vitamin D2 oral RxNorm: 4018 oral No Start Date 03/18/2015 Inacti ve pravastatin 40 mg tablet RxNorm: 470124 1/2 Tablet(s) PO QD No Star t Date 04/09/2015 Inactive ondansetron HCl 4 mg tablet RxNorm: 430001 1 Tablet(s) PO Q4H as needed for nausea and vomiting No Start Date 04/07/2016 Inactive furosemide 40 mg tablet RxNorm: 281848 2 Tablet(s) PO QAM No Start Date 09/26/2018 Inactive gabapentin 800 mg tablet RxNorm: 895460 1/2 Tablet(s) PO BID No Sta rt Date 06/21/2017 Inactive gabapentin 800 mg tablet RxNorm: 597459 1/2 Tablet(s) PO BID No Sta rt Date 07/05/2017 Inactive ProAir HFA 90 mcg/Actuation Aerosol Inhaler RxNorm: 833445 2 Puff(s) INH Q4H prn shortness of breath No Start Date 05/05/2010 Inactive scopolamine 1 mg over 3 days transdermal patch RxNorm: 24867 2 1 Application TD behind ear. Take off after three days No Start Date 10/10/2018 Inactive Metformin 500 mg Tab RxNorm: 261180 1 Tablet(s) PO QD No Start Date 0 05/05/2010 Inactive MS Contin 200 mg Tab RxNorm: 375823 1 Tablet(s) PO BID No Start Date 08/20/2011 Inactive Belladonna-Phenobarbital 48 mg tablet,extended release RxNor m: 2 Tablet(s) PO TID No Start Date 06/04/2016 Inactive Synthroid 112 mcg Tab RxNorm: 126919 1 Tablet(s) PO QD No Start Date 05/05/2010 Inactive Zegerid 40 mg-1.1 gram Cap RxNorm: 783939 1 Capsule(s) PO QD No Sta rt Date 01/25/2012 Inactive Premarin 0.625 mg/g Vaginal Cream RxNorm: 857639 VAG In sert 1gm vaginally at bedtime 3 times weekly No Start Date 01/17/2011 Inactive potassium chloride ER 20 mEq tablet,extended release RxNorm: 000636 1 Tablet(s) PO QD No Start Date 04/24/2019 Inactive methocarbamol 750 mg tablet RxNorm: 259525 2 Tablet(s) PO TID as needed for muscle spasm No Start Date 07/08/2014 Inactive Biaxin XL Aníbal 500 mg 24 hr Tab RxNorm: 929984 Tablet(s) PO as d irected No Start Date 04/24/2013 Inactive Vitamin D3 1,000 unit tablet RxNorm: 666747 3 Tablet(s) PO QD No St art Date 06/01/2017 Inactive Morphine SR 120 mg multiphase 24 hr Cap RxNorm: 619215 1 Capsul e(s) PO BID No Start Date 04/09/2010 Inactive Silvadene 1 % topical cream RxNorm: 315634 1 Application TOP BI D to burn area No Start Date 01/31/2017 Inactive Prednisone 20 mg Tab RxNorm: 165610 1 Tablet(s) PO TID for 3days then BID for 4days No Start Date 01/25/2012 Inactive gabapentin 600 mg tablet RxNorm: 920230 1 Tablet(s) PO BID No Start Date 01/21/2015 Inactive topiramate 50 mg tablet RxNorm: 058211 1 Tablet(s) PO QHS No Start Date 03/30/2018 Inactive Januvia 100 mg tablet RxNorm: 593619 1/2 Tablet(s) PO QD No Start D ate 12/25/2015 Inactive Diazepam 10 mg Tab RxNorm: 300354 1 Tablet(s) PO BID and PRN No Sta rt Date 06/08/2010 Inactive Medication Administered No Medication Administered data Immunizations Vaccine Codes Date Status Influenza CVX: 141 09/28/2012 Pneumovax Unknown 09/28/2012 Influenza (Adult) CVX: 141 09/02/2010 Results No Results data Procedures Procedure Codes Date THER/PROPH/DIAG INJ SC/IM CPT-4: 13562 07/10/2019 METHYLPREDNISOLONE INJECTION CPT-4: J2930 07/10/2019 URINALYSIS NONAUTO W/O SCOPE CPT-4: 60668 09/06/2018 URINE CULTURE/ COLONY COUNT CPT-4: 72896 09/06/2018 DRAIN/INJECT JOINT/BURSA CPT-4: 55956 04/29/2017 TRIAMCINOLONE ACET INJ NOS CPT-4: J3301 04/29/2017 DEXAMETHASONE SODIUM PHOS CPT-4: J1100 04/29/2017 INFLUENZA ASSAY W/OPTIC CPT-4: 60008 12/01/2016 RESPIRATORY CULTURE & STAIN CPT-4: 08310 07/09/2016 TB INTRADERMAL TEST CPT-4: 70621 04/21/2016 DRAIN/INJECT JOINT/BURSA CPT-4: 31772 11/07/2013 METHYLPREDNISOLONE 40 MG INJ CPT-4: J1030 11/07/2013 TRIAMCINOLONE ACET INJ NOS CPT-4: J3301 11/07/2013 DRAIN/INJECT JOINT/BURSA CPT-4: 22415 08/08/2013 METHYLPREDNISOLONE 40 MG INJ CPT-4: J1030 08/08/2013 TRIAMCINOLONE ACET INJ NOS CPT-4: J3301 08/08/2013 FLU VACCINE 3 YRS & > IM UP 64 CPT-4: 95878 2 PNEUMOCOCCAL VACC 23 ADITYA IM CPT-4: 78002 09/28/2012 IMMUNIZATION ADMIN CPT-4: 85118 09/28/2012 IMMUNIZATION ADMIN EACH ADD CPT-4: 86373 09/28/2012 FLU VACCINE 3 YRS & > IM UP 64 CPT-4: 86409 0 IMMUNIZATION ADMIN CPT-4: 30706 09/02/2010 METHYLPREDNISOLONE INJECTION CPT-4: J2930 05/07/2010 THER/PROPH/DIAG INJ SC/IM CPT-4: 17842 05/07/2010 Vital Signs Date Vital 11/29/2019 Blood [...] 1: 122/78 Code: 8480-6 BMI: 29.5 Code: 15397-3 Heart Rate 1: 76 bpm Height: 5'4" Respiratory Rate: 20 bpm SpO2: 96% Tempera ture: 37.0 (C) / 98.6 (F) Weight: 172 lbs 01/25/2019 Blood Pressure 1: 132/80 Code: 8480-6 BMI: 29.7 Code: 99047-8 Heart Rate 1: 84 bpm Height: 5'4" Respiratory Rate: 22 bpm SpO2: 98% Tempera ture: 36.9 (C) / 98.4 (F) Weight: 173 lbs 01/03/2019 Blood Pressure 1: 116/70 Code: 8480-6 BMI: 29.5 Code: 86100-1 Heart Rate 1: 92 bpm Height: 5'4" Respiratory Rate: 24 bpm SpO2: 98% Tempera ture: 37.2 (C) / 98.9 (F) Weight: 172 lbs 11/21/2018 Blood Pressure 1: 146/82 Code: 8480-6 BMI: 28.2 Code: 37417-6 Heart Rate 1: 88 bpm Height: 5'4" Respiratory Rate: 22 bpm SpO2: 97% Tempera ture: 36.9 (C) / 98.4 (F) Weight: 164 lbs 10/27/2018 Blood Pressure 1: 122/70 Code: 8480-6 BMI: 27.6 Code: 89656-1 Heart Rate 1: 88 bpm Height: 5'4" Respiratory Rate: 20 bpm SpO2: 96% Tempera ture: 36.8 (C) / 98.3 (F) Weight: 161 lbs 10/18/2018 Blood Pressure 1: 126/70 Code: 8480-6 BMI: 28.3 Code: 38298-9 Heart Rate 1: 76 bpm Height: 5'4" Respiratory Rate: 20 bpm SpO2: 95% Tempera ture: 37.0 (C) / 98.6 (F) Weight: 165 lbs 09/27/2018 Blood Pressure 1: 124/78 Code: 8480-6 BMI: 27.1 Code: 82922-5 Heart Rate 1: 88 bpm Height: 5'4" Respiratory Rate: 20 bpm SpO2: 98% Tempera ture: 36.4 (C) / 97.6 (F) Weight: 158 lbs 09/14/2018 Blood Pressure 1: 140/72 Code: 8480-6 BMI: 26.1 Code: 79062-8 Heart Rate 1: 100 bpm Height: 5'4" Respiratory Rate: 20 bpm SpO2: 97% Tempera ture: 36.9 (C) / 98.4 (F) Weight: 152 lbs 09/06/2018 Blood Pressure 1: 156/82 Code: 8480-6 BMI: 26.3 Code: 13380-2 Heart Rate 1: 100 bpm Height: 5'4" Respiratory Rate: 28 bpm SpO2: 95% Tempera ture: 37.2 (C) / 98.9 (F) Weight: 153 lbs 08/16/2018 Blood Pressure 1: 130/78 Code: 8480-6 Heart Rate 1: 87 bpm Respiratory Rate: 24 bpm SpO2: 94% Temperature: 36.9 (C) / 98.4 (F) We ight: 147 lbs 8 oz 07/07/2018 Blood Pressure 1: 116/78 Code: 8480-6 BMI: 22.7 Code: 85695-3 Heart Rate 1: 88 bpm Height: 5'4" Respiratory Rate: 22 bpm SpO2: 98% Tempera ture: 36.5 (C) / 97.7 (F) Weight: 132 lbs 05/31/2018 Blood Pressure 1: 128/78 Code: 8480-6 BMI: 22.3 Code: 58058-9 Heart Rate 1: 92 bpm Height: 5'4" Respiratory Rate: 26 bpm SpO2: 94% Tempera ture: 36.7 (C) / 98.1 (F) Weight: 130 lbs 03/31/2018 Blood Pressure 1: 136/78 Code: 8480-6 BMI: 21.5 Code: 10524-2 Heart Rate 1: 76 bpm Height: 5'4" Respiratory Rate: 24 bpm SpO2: 95% Tempera ture: 36.8 (C) / 98.3 (F) Weight: 125 lbs 01/26/2018 Blood Pressure 1: 142/64 Code: 8480-6 BMI: 20.6 Code: 85780-9 Heart Rate 1: 90 bpm Height: 5'4" Respiratory Rate: 24 bpm SpO2: 92% Tempera ture: 36.3 (C) / 97.3 (F) Weight: 120 lbs 10/26/2017 Blood Pressure 1: 124/70 Code: 8480-6 BMI: 20.3 Code: 57354-3 Heart Rate 1: 76 bpm Height: 5'4" Respiratory Rate: 22 bpm SpO2: 94% Tempera ture: 36.7 (C) / 98.1 (F) Weight: 118 lbs 09/23/2017 Blood Pressure 1: 106/70 Code: 8480-6 BMI: 19.2 Code: 46324-9 Heart Rate 1: 76 bpm Height: 5'4" Respiratory Rate: 20 bpm SpO2: 94% Tempera ture: 36.8 (C) / 98.3 (F) Weight: 112 lbs 08/12/2017 Blood Pressure 1: 116/68 Code: 8480-6 BMI: 20.1 Code: 25800-3 Heart Rate 1: 80 bpm Height: 5'4" Respiratory Rate: 22 bpm SpO2: 95% Tempera ture: 36.8 (C) / 98.2 (F) Weight: 117 lbs 07/06/2017 Blood Pressure 1: 136/78 Code: 8480-6 BMI: 20.6 Code: 69216-2 Heart Rate 1: 76 bpm Height: 5'4" Respiratory Rate: 24 bpm SpO2: 96% Tempera ture: 36.8 (C) / 98.2 (F) Weight: 120 lbs 06/02/2017 Blood Pressure 1: 112/70 Code: 8480-6 Heart Rate 1: 92 bpm Height: 5'4" Respiratory Rate: 24 bpm SpO2: 95% Temperature: 37.0 (C) / 98.6 (F) Weight: 04/29/2017 Blood Pressure 1: 94/52 Code: 8480-6 BMI: 19.6 C ode: 86517-4 Heart Rate 1: 84 bpm Height: 5'4" [...] 92/58 Code: 8480-6 BMI: 19.2 C ode: 08428-5 Heart Rate 1: 84 bpm Height: 5'4" Respiratory Rate: 26 bpm SpO2: 95% Tempera ture: 36.7 (C) / 98.0 (F) Weight: 112 lbs 12/01/2016 Blood Pressure 1: 114/70 Code: 8480-6 BMI: 19.2 Code: 21181-2 Heart Rate 1: 96 bpm Height: 5'4" Respiratory Rate: 28 bpm SpO2: 93% Tempera ture: 38.3 (C) / 101.0 (F) Weight: 112 lbs 10/27/2016 Blood Pressure 1: 126/66 Code: 8480-6 BMI: 19.6 Code: 36017-4 Heart Rate 1: 92 bpm Height: 5'4" Respiratory Rate: 28 bpm SpO2: 90% Tempera ture: 36.8 (C) / 98.3 (F) Weight: 114 lbs 09/09/2016 Blood Pressure 1: 126/74 Code: 8480-6 Heart Rate 1: 104 bpm Height: 5'4" Respiratory Rate: 32 bpm SpO2: 88% Temperature: 37 .2 (C) / 99.0 (F) 08/26/2016 Blood Pressure 1: 134/82 Code: 8480-6 BMI: 22.0 Code: 66915-3 Heart Rate 1: 84 bpm Height: 5'4" Respiratory Rate: 24 bpm SpO2: 94% Tempera ture: 36.8 (C) / 98.3 (F) Weight: 128 lbs 05/21/2016 Blood Pressure 1: 142/80 Code: 8480-6 BMI: 21.6 Code: 13425-1 Heart Rate 1: 104 bpm Height: 5'4" Respiratory Rate: 22 bpm SpO2: 93% Tempera ture: 36.0 (C) / 96.8 (F) Weight: 126 lbs 03/25/2016 Blood Pressure 1: 126/62 Code: 8480-6 Heart Rate 1: 88 bpm Respiratory Rate: 20 bpm SpO2: 92% Temperature: 36.8 (C) / 98.3 (F) We ight: 130 lbs 01/23/2016 Blood Pressure 1: 146/82 Code: 8480-6 BMI: 24.1 Code: 19326-2 Heart Rate 1: 92 bpm Height: 5'3" Respiratory Rate: 22 bpm Temperature: 37 .1 (C) / 98.8 (F) Weight: 136 lbs 12/26/2015 Blood Pressure 1: 142/78 Code: 8480-6 BMI: 24.6 Code: 35007-7 Heart Rate 1: 78 bpm Height: 5'3" Respiratory Rate: 20 bpm Temperature: 36 .7 (C) / 98.1 (F) Weight: 139 lbs 12/03/2015 Blood Pressure 1: 126/60 Code: 8480-6 BMI: 24.6 Code: 41695-2 Heart Rate 1: 100 bpm Height: 5'3" Respiratory Rate: 28 bpm Temperature: 37 .6 (C) / 99.6 (F) Weight: 139 lbs 09/10/2015 Blood Pressure 1: 124/64 Code: 8480-6 BMI: 23.7 Code: 07676-1 Heart Rate 1: 88 bpm Height: 5'3" Respiratory Rate: 24 bpm SpO2: 95% Tempera ture: 36.4 (C) / 97.6 (F) Weight: 134 lbs 08/06/2015 Blood Pressure 1: 114/76 Code: 8480-6 BMI: 23.2 Code: 48053-7 Heart Rate 1: 88 bpm Height: 5'3" Respiratory Rate: 22 bpm Temperature: 36 .6 (C) / 97.9 (F) Weight: 131 lbs 07/18/2015 Blood Pressure 1: 144/78 Code: 8480-6 BMI: 23.7 Code: 60380-7 Heart Rate 1: 84 bpm Height: 5'3" Respiratory Rate: 20 bpm Temperature: 37 .2 (C) / 99.0 (F) Weight: 134 lbs 04/10/2015 Blood Pressure 1: 110/64 Code: 8480-6 Heart Rate 1: 80 bpm Height: Respiratory Rate: 20 bpm Temperature: 37.1 (C) / 98.8 (F) Weight: 03/05/2015 Blood Pressure 1: 136/80 Code: 8480-6 BMI: 23.9 Code: 49991-4 Heart Rate 1: 76 bpm Height: 5'3" Respiratory Rate: 24 bpm Temperature: 37 .0 (C) / 98.6 (F) Weight: 135 lbs 01/30/2015 Blood Pressure 1: 142/80 Code: 8480-6 BMI: 23.0 Code: 27769-5 Heart Rate 1: 96 bpm Height: 5'3" Respiratory Rate: 22 bpm Temperature: 36 .2 (C) / 97.2 (F) Weight: 130 lbs 01/02/2015 Blood Pressure 1: 124/70 Code: 8480-6 BMI: 23.4 Code: 75534-8 Heart Rate 1: 84 bpm Height: 5'3" Respiratory Rate: 24 bpm SpO2: 95% Tempera ture: 36.9 (C) / 98.5 (F) Weight: 132 lbs 10/03/2014 Blood Pressure 1: 106/68 Code: 8480-6 BMI: 22.5 Code: 55514-4 Heart Rate 1: 88 bpm Height: 5'3" Respiratory Rate: 24 bpm Temperature: 37 .0 (C) / 98.6 (F) Weight: 127 lbs 08/27/2014 Blood Pressure 1: 124/68 Code: 8480-6 BMI: 21.1 Code: 65622-8 Heart Rate 1: 88 bpm Height: 5'3" [...] 1: 120/70 Code: 8480-6 BMI: 19.2 Code: 81132-5 Heart Rate 1: 70 bpm Height: 5'4" Respiratory Rate: 20 bpm Temperature: 36 .9 (C) / 98.4 (F) Weight: 112 lbs 06/28/2013 Blood Pressure 1: 102/68 Code: 8480-6 BMI: 19.6 Code: 52415-1 Heart Rate 1: 76 bpm Height: 5'4" Respiratory Rate: 20 bpm Temperature: 36 .8 (C) / 98.2 (F) Weight: 114 lbs 05/31/2013 Blood Pressure 1: 106/70 Code: 8480-6 BMI: 18.9 Code: 88003-2 Heart Rate 1: 100 bpm Height: 5'4" Respiratory Rate: 20 bpm Temperature: 36 .4 (C) / 97.6 (F) Weight: 110 lbs 05/03/2013 Blood Pressure 1: 126/70 Code: 8480-6 BMI: 19.1 Code: 89329-5 Heart Rate 1: 88 bpm Height: 5'4" Respiratory Rate: 20 bpm Temperature: 37 .1 (C) / 98.8 (F) Weight: 111 lbs 04/25/2013 Blood Pressure 1: 114/68 Code: 8480-6 BMI: 19.4 Code: 12771-8 Heart Rate 1: 92 bpm Height: 5'4" Respiratory Rate: 24 bpm SpO2: 96% Tempera ture: 37.7 (C) / 99.8 (F) Weight: 113 lbs 03/08/2013 Blood Pressure 1: 9468 Code: 8480-6 BMI: 21.3 C ode: 39313-9 Heart Rate 1: 88 bpm Height: 5'4" Respiratory Rate: 24 bpm Temperature: 37 .0 (C) / 98.6 (F) Weight: 124 lbs 02/07/2013 Blood Pressure 1: 106/64 Code: 8480-6 BMI: 21.8 Code: 33819-3 Heart Rate 1: 84 bpm Height: 5'4" Respiratory Rate: 22 bpm Temperature: 36 .8 (C) / 98.2 (F) Weight: 127 lbs 01/10/2013 Blood Pressure 1: 122/68 Code: 8480-6 BMI: 21.6 Code: 51063-5 Heart Rate 1: 94 bpm Height: 5'4" SpO2: 94% Temperature: 36.7 (C) /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 01/26/2012 Visit Plan: Discussed methotrexate trial , but do to chronic bronchitis pt wants to hold Smoking cessation Check CMP, CBC, TSH, Free T4, Lipids. ESR, ds DNA, JOVANNY Check EGD 11/03/2011 Appointment: Vika Renteria WPtel: [address] [place] [address] FOLLOW UP 11/03/2011 Patient Education: Patient Medication Summary Completed 11/03/2011 Appointment: Vika Renteria WPtel: [address] [place] [address] 08/10/2011 Patient Education: Patient Medication Summary Completed 08/10/2011 Visit Plan: Supportive care. Rest, Fluid s, Tylenol/Motrin prn fever or bodyaches. Notify if worsening symptoms. Medrol Dose Pack Smoking Cessation and recommend get rid of cat Add Reglan for stomach 07/15/2011 Appointment: Vika Renteria WPtel: [address] [place] [address] ACUTE ILLNESS 07/15/2011 Patient Education: Patient Medication Summary Completed 07/15/2011 Appointment: Vika Renteria WPtel: [address] [place] [address] FOLLOW UP 04/02/2011 Visit Plan: SVN with Albuterol 0.083% Q4 hrs and Q2hrs prn. Cont smoking Cessation 03/19/2011 Appointment: Vika Renteriatel: [address] [place], [place] [phone] ACUTE ILLNESS 03/19/2011 Patient Education: Patient Medication Summary Completed 03/19/2011 Visit Plan: Repeat Biaxin XL Cont curren t meds Repeat Chantix 01/28/2011 Appointment: Vika Renteria WPtel: [address] [place], [place] [phone] FOLLOW UP 01/28/2011 Patient Education: Patient Medication Summary Completed 01/28/2011 Patient Education: Chantix Unbranded Comp leted 01/28/2011 Appointment: Vika Renteria WPtel: [address] [place], [place] [phone] FOLLOW UP 01/14/2011 Visit Plan: Finish abx Diflucan for vagi nitis Premarin vaginal cream Smoking cessation 12/17/2010 Appointment: Vika Renteria WPtel: [address] [place], [place] [phone] [place] [address] Follow Up 12/17/2010 Patient Education: Patient Medication Summary Completed 12/17/2010 Appointment: Vika Renteriatel: [address] [place], [place] [phone] FOLLOW UP 11/06/2010 Visit Plan: Start PT Use SVNs every 4hrs Smoking Cessation Change MS Contin to 200mg q 12hrs 2010 Appointment: Vika Renteria WPtel: [address] [place], [place] [phone] FOLLOW UP 2010 Patient Education: Patient Medication Summary Completed 2010 Visit Plan: Prednisone taper for pain an d lungs 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 Increase fluoxetine to 60mg QD for acute stress reaction 10/02/2010 Appointment: Vika Renteria WPtel: [address] [place] [address] FOLLOW UP 10/02/2010 Patient Education: Patient Medication Summary Completed 10/02/2010 Visit Plan: Check CT Head, Cervical, Tho racic, and Lumbar Spine Cont current meds Bactrim for left toe 09/24/2010 Appointment: Vika Renteria WPtel: [address] [place] [address] CHECK UP 09/24/2010 Patient Education: Patient Medication Summary Completed 09/24/2010 Appointment: Vika Renteria WPtel: [address] [place] [address] FOLLOW UP 09/02/2010 Patient Education: Patient Medication Summary Completed 09/02/2010 Visit Plan: Return for 2nd epidural Obse rve right leg lesion Cont Symbicort and Spiriva 07/14/2010 Appointment: Vika Renteria WPtel: [address] [place] [address] FOLLOW UP 07/14/2010 Patient Education: Patient Medication Summary Completed 07/14/2010 Appointment: Vika Renteria WPtel: [address] [place] [address] FOLLOW UP 05/27/2010 Appointment: Vika Renteria WPtel: [address] [place] [address] FOLLOW UP 05/14/2010 Visit Plan: SVN with Albuterol 0.083% Q4 hrs and Q2hrs prn. Restart Spiriva Smoking Cessation 05/07/2010 Appointment: Vika Renteria WPtel: [address] [place] [address] FOLLOW UP 05/07/2010 Patient Education: Patient Medication Summary Completed 05/07/2010 Appointment: Vika Renteria WPtel: [address] [place] [address] ACUTE ILLNESS 04/08/2010 Patient Education: Patient Medication Summary Completed 04/08/2010 [facility]: [facility] [phone] [id number] [place] Referral Completed Referral: Jaylan MatuteSahara WPtel: [address] [facility] [address] [id number] [place] Referral Initiated Referral: Kyle Billings [facility]el[facility] [phone] [id number] [place] Referral Appointment Requested Instructions Comment . [...] with ipratropium q4hrs prn in nebulizer Retry Jamiex Will repeat CT scan of chest in [...] prn breakthrough pain . Discussed that some [employer] produc ts are petroleum free If [...]
--- OUTSIDE RECORDS SUMMARY | 2020-04-24 22:08 | XMS REPORT | CCD ---
Author Author Yana Renteria D.O. Organization [facility] Address [address] [place] [address] Phone Care Team Providers Care Bisque Placer Name Role Phone Vika Renteria D.O., PP Unavailable CCM Unavailable Summary Purpose Interface Exchange Insurance Providers Payer name Policy type / Coverage type Covered democrat ID Effective Begin Date Effective End Date [employer] [facility] Medicaid [id number] 2018 U nknown Family History Family History data not found Social History Social History Element Codes Description Effective Dates Marital status Unknown 06/28/[address]: [id number] Currently smokes tobacco 05/2013 Allergies, Adverse Reactions, [...] Start Date Stop Date Status Fill Instructions fluoxetine 20 mg capsule RxNorm: 112624 1 Capsule(s) Oral QD 201905/10/2020 Active fluoxetine 20 mg capsule RxNorm: 307681 1 Capsule(s) Oral QD 201904/09/2020 Inactive levothyroxine 25 mcg tablet RxNorm: 556191 TAKE ONE TAB LET BY MOUTH EVERY MORNING 04/09/2020 No Stop Date Active metformin 500 mg tablet RxNorm: 583960 1 Tablet(s) Oral QD 04/09/20 20 07/08/2020 Active MS Contin 200 mg tablet,extended release RxNorm: 652340 1 Tablet(s) Oral two times a day 03/19/2020 04/17/2020 Active Relistor 150 mg tablet RxNorm: 4094991 TAKE THREE TABLETS BY [facility]ENOIT [facility] DAILY 03/13/2020 No Stop Date Active cyclobenzaprine 10 mg tablet RxNorm: 522902 TAKE ONE TA BLET BY MOUTH THREE TIMES A DAY NEEDED 03/13/2020 No Stop Date Active furosemide 40 mg tablet RxNorm: 498398 TAKE ONE TABLET BY MOUTH EVERY MORNING 03/13/2020 No Stop Date Active hydroxyzine HCl 50 mg tablet RxNorm: 597180 1 Tablet(s) Oral two times a day to take with morphine--replaces benadryl 03/12/2020 04/11/2020 Active prednisone 1 mg tablet RxNorm: 896334 1 Tablet(s) Oral two times a day to take with hydroxyzine 03/12/2020 No Stop Date Active prednisolone 5 mg tablet RxNorm: 155689 1 Tablet(s) Oral two ti mes a day 02/22/2020 03/23/2020 Inactive prednisolone 5 mg tablet RxNorm: 892459 1 Tablet(s) Oral two ti mes a day 02/22/2020 02/21/2020 Inactive Symbicort 160 mcg-4.5 mcg/actuation HFA aerosol inhaler RxNo rm: 8674717 INHALE TWO PUFFS BY MOUTH TWICE A DAY 02/19/2020 No Stop Date Active Daliresp 500 mcg tablet RxNorm: 1501754 TAKE ONE TABLET BY MOUTH DAILY 02/19/2020 No Stop Date Active prednisone 20 mg tablet RxNorm: 693927 1 Tablet(s) Oral two yumi es a day 02/13/2020 02/20/2020 Inactive oxycodone 30 mg tablet RxNorm: 8572504 1 Tablet(s) Oral four times a day replaces MS Contin 02/13/2020 02/22/2020 Inactive levothyroxine 25 mcg tablet RxNorm: 328595 TAKE ONE TAB LET BY MOUTH EVERY MORNING 02/09/2020 04/08/2020 Inactive MS Contin 200 mg tablet,extended release RxNorm: 362750 1 Tablet(s) Oral two times a day 02/01/2020 03/01/2020 Inactive Premarin 0.45 mg tablet RxNorm: 592324 TAKE ONE TABLET BY MOUTH DAILY 01/31/2020 No Stop Date Active cyclobenzaprine 10 mg tablet RxNorm: 418403 TAKE ONE TA BLET BY MOUTH THREE TIMES A DAY NEEDED 01/31/2020 03/12/2020 Inactive metformin 500 mg tablet RxNorm: 044912 1 Tablet(s) Oral QD 01/31/2004/08/2020 Inactive gabapentin 300 mg capsule RxNorm: 474925 TAKE ONE CAPSULE BY [facility] TWICE A DAY 01/16/2020 No Stop Date Active potassium chloride ER 20 mEq tablet,extended release RxNorm: 338713 TAKE ONE TABLET BY MOUTH DAILY 01/08/2020 07/05/2020 Active ProAir HFA 90 mcg/actuation aerosol inhaler RxNorm: 748381 INHALE ONE PUFF BY MOUTH EVERY 4 HOURS FOR WHEEZING OR FOR SHORTNESS OF BREATH 01/04/2020 No Stop Date Active metformin 500 mg tablet RxNorm: 626358 1 Tablet(s) Oral QD 01/04/20 20 04/09/2020 Inactive MS Contin 200 mg tablet,extended release RxNorm: 028990 1 Tablet(s) Oral two times a day 01/02/2020 01/31/2020 Inactive Pulmicort 1 mg/2 mL suspension for nebulization RxNorm: 6168 19 USE ONE VIAL VIA NEBULIZER BY MOUTH TWICE A DAY 12/21/2019 No Stop Date Active furosemide 40 mg tablet RxNorm: 097874 TAKE ONE TABLET BY MOUTH EVERY MORNING NEEDED 12/20/2019 03/12/2020 Inactive levothyroxine 25 mcg tablet RxNorm: 449303 TAKE ONE TAB LET BY MOUTH EVERY MORNING 12/20/2019 02/08/2020 Inactive MS Contin 200 mg tablet,extended release RxNorm: 281866 1 Tablet(s) Oral two times a day 12/05/2019 01/01/2020 Inactive Medrol (Aníbal) 4 mg tablets in a dose pack RxNorm: 525645 6 Tablet(s) Oral QD --then as directed 11/30/2019 12/05/2019 Inactive MS Contin 200 mg tablet,extended release RxNorm: 475525 1 Tablet(s) Oral two times a day 11/29/2019 12/04/2019 Inactive cyclobenzaprine 10 mg tablet RxNorm: 228347 TAKE ONE TA BLET BY MOUTH THREE TIMES A DAY NEEDED 11/21/2019 01/30/2020 Inactive MS Contin 200 mg tablet,extended release RxNorm: 606849 1 Tablet(s) Oral two times a day replaces 100mg dose 11/03/2019 11/02/2019 Inactive MS Contin 200 mg tablet,extended release RxNorm: 925466 1 Tablet(s) Oral two times a day replaces 100mg dose 11/03/2019 11/29/2019 Inactive ferrous sulfate 325 mg (65 mg iron) tablet RxNorm: 787114 1 Tab let(s) Oral QD 10/30/2019 No Stop Date Active MS Contin 100 mg tablet,extended release RxNorm: 998188 1 Table t(s) Oral QD 10/30/2019 10/29/2019 Inactive MS Contin 100 mg tablet,extended release RxNorm: 616178 1 Table t(s) Oral QD 10/30/2019 11/02/2019 Inactive pantoprazole 40 mg tablet,delayed release RxNorm: 436863 1 Tabl et(s) Oral QD 10/25/2019 No Stop Date Active Minipress 2 mg capsule RxNorm: 693810 1 Capsule(s) Oral QAM and 3 at bedtime 10/25/2019 No Stop Date Active Lancets, Super Thin RxNorm: 1 Unit Dose Miscellaneous QD 9 11/27/2020 Active Relistor 150 mg tablet RxNorm: 2903909 TAKE THREE TABLETS BY BENOIT TH DAILY 10/25/2019 03/12/2020 Inactive oxycodone 15 mg tablet RxNorm: 4446061 1 Tablet(s) Oral four times a day as needed for pain 10/25/2019 11/28/2019 Inactive metformin 500 mg tablet RxNorm: 542844 1 Tablet(s) Oral QD 10/25/2001/03/2020 Inactive levothyroxine 25 mcg tablet RxNorm: 882029 1 Tablet(s) Oral QAM 02/201912/19/2019 Inactive levothyroxine 25 mcg tablet RxNorm: 995052 1 Tablet(s) Oral QAM 02/201910/24/2019 Inactive MS Contin 100 mg tablet,extended release RxNorm: 284186 1 Tablet(s) Oral two times a day replaces fentanyl 10/25/2019 10/25/2019 Inactive Cymbalta 60 mg capsule,delayed release RxNorm: 950274 1 Capsule (s) Oral QAM 10/25/2019 04/09/2020 Inactive Cymbalta 30 mg capsule,delayed release RxNorm: 865945 1 Capsule (s) Oral QAM 10/25/2019 04/09/2020 Inactive Premarin 0.45 mg tablet RxNorm: 029358 TAKE ONE TABLET BY MOUTH DAILY 10/24/2019 01/30/2020 Inactive Duragesic 100 mcg/hr transdermal patch RxNorm: 933209 2 Application TD Q48H for pain 10/18/2019 10/24/2019 Inactive gabapentin 300 mg capsule RxNorm: 573222 TAKE ONE CAPSULE BY MO UTH TWICE A DAY 10/16/2019 01/15/2020 Inactive cyclobenzaprine 10 mg tablet RxNorm: 334431 TAKE ONE TA BLET BY MOUTH THREE TIMES A DAY NEEDED 09/27/2019 11/20/2019 Inactive Relistor 150 mg tablet RxNorm: 8938543 TAKE THREE TABLETS BY BENOIT TH DAILY 09/25/2019 10/24/2019 Inactive ProAir HFA 90 mcg/actuation aerosol inhaler RxNorm: 421376 INHALE ONE PUFF BY MOUTH EVERY 4 HOURS FOR WHEEZING OR FOR SHORTNESS OF BREATH 09/25/2019 01/03/2020 Inactive furosemide 40 mg tablet RxNorm: 009583 1 Tablet(s) Oral QAM as needed 09/25/2019 09/25/2019 Inactive oxycodone 15 mg tablet RxNorm: 0976681 1 Tablet(s) PO QID as nee ded for pain 09/21/2019 10/24/2019 Inactive Duragesic 100 mcg/hr transdermal patch RxNorm: 718502 2 Application TD Q48H for pain 09/19/2019 10/17/2019 Inactive Daliresp 500 mcg tablet RxNorm: 4205865 1 Tablet(s) Oral QD 019 02/18/2020 Inactive Relistor 150 mg tablet RxNorm: 7172280 TAKE THREE TABLETS BY BENOIT TH DAILY 07/25/2019 07/30/2019 Inactive cyclobenzaprine 10 mg tablet RxNorm: 672882 TAKE ONE TA BLET BY MOUTH THREE TIMES A DAY NEEDED 07/25/2019 09/22/2019 Inactive potassium chloride ER 20 mEq tablet,extended release RxNorm: 518830 TAKE ONE TABLET BY MOUTH DAILY 07/25/2019 01/07/2020 Inactive fluoxetine 40 mg capsule RxNorm: 369810 TAKE ONE CAPSULE BY BENOIT TH EVERY MORNING 07/11/2019 10/24/2019 Inactive Medrol (Aníbal) 4 mg tablets in a dose pack RxNorm: 458145 6 Tablet(s) PO QD --then as directed 07/10/2019 07/15/2019 Inactive omeprazole 40 mg capsule,delayed release RxNorm: 876988 1 Capsule(s) PO QD for stomach TAKE ONE CAPSULE BY MOUTH DAILY 07/10/2019 10/24/2019 Inactive Augmentin 875 mg-125 mg tablet RxNorm: 713116 1 Tablet(s) PO BID 07/16/2019 Inactive Trulicity 0.75 mg/0.5 mL subcutaneous pen injector RxNorm: 1 355769 0.75 Milliliter(s) SQ weekly 07/05/2019 10/24/2019 Inactive Compazine 10 mg tablet RxNorm: 173074 TAKE ONE TABLET B Y MOUTH FOUR TIMES A DAY NEEDED FOR NAUSEA 06/20/2019 07/19/2019 Inactive ProAir HFA 90 mcg/actuation aerosol inhaler RxNorm: 667530 INHALE ONE PUFF BY MOUTH EVERY 4 HOURS FOR WHEEZING OR FOR SHORTNESS OF BREATH 06/20/2019 06/23/2019 Inactive Daliresp 500 mcg tablet RxNorm: 8185630 TAKE ONE TABLET BY MOUTH DAILY 06/12/2019 09/10/2019 Inactive pbdzzmtv-vfturupck-aagleyiuo 3.5 mg/mL-10,000 unit/mL- 1 % ear solution RxNorm: 899625 4 Drop(s) otic (ear) TID to left ear 06/05/2019 10/24/2019 Inac tive furosemide 40 mg tablet RxNorm: 104080 TAKE ONE TABLET BY MOUTH EVERY MORNING 05/26/2019 07/09/2019 Inactive Duragesic 100 mcg/hr transdermal patch RxNorm: 291868 2 Application TD Q48H for pain 05/16/2019 06/14/2019 Inactive oxycodone 15 mg tablet RxNorm: 6075738 1 Tablet(s) PO QID as nee ded for pain 05/10/2019 09/20/2019 Inactive doxycycline hyclate 100 mg capsule RxNorm: 8411968 1 Capsule(s) PO BID 05/03/2019 05/12/2019 Inactive prednisone 20 mg tablet RxNorm: 432572 1 Tablet(s) PO T ID for 3 days then 1 po BID for 3 days then one daily for 3 days 05/03/2019 07/11/2019 Inactiv e Ozempic 0.25 mg or 0.5 mg (2 mg/1.5 mL) subcutaneous p en injector RxNorm: 5672079 0.5 Milligram(s) SQ QW 05/03/2019 07/09/2019 Inactive fluconazole 100 mg tablet RxNorm: 935792 1 Tablet(s) PO QD 05/03/2005/07/2019 Inactive Premarin 0.45 mg tablet RxNorm: 105263 TAKE ONE TABLET BY MOUTH DAILY 05/03/2019 10/23/2019 Inactive potassium chloride ER 20 mEq tablet,extended release RxNorm: 547016 1 Tablet(s) PO QD 04/27/2019 07/25/2019 Inactive potassium chloride ER 20 mEq tablet,extended release RxNorm: 562497 1 Tablet(s) PO QD 04/25/2019 04/26/2019 Inactive Compazine 10 mg tablet RxNorm: 875328 1 Tablet(s) PO QID as nee ded for nausea 04/25/2019 05/04/2019 Inactive ProAir HFA 90 mcg/actuation aerosol inhaler RxNorm: 457927 INHALE ONE PUFF BY MOUTH EVERY 4 HOURS FOR WHEEZING OR FOR SHORTNESS OF BREATH 04/12/2019 06/10/2019 Inactive Medrol (Aníbal) 4 mg tablets in a dose pack RxNorm: 382301 6 Tablet(s) PO QD --then as directed 04/11/2019 04/16/2019 Inactive Symbicort 160 mcg-4.5 mcg/actuation HFA aerosol inhaler RxNo rm: 0109697 2 Puff(s) INH BID 04/10/2019 10/06/2019 Inactive levothyroxine 50 mcg tablet RxNorm: 454903 1 Tablet(s) PO QD 201810/24/2019 Inactive gabapentin 300 mg capsule RxNorm: 783561 1 Capsule(s) PO BID 201810/02/2019 Inactive Symbicort 160 mcg-4.5 mcg/actuation HFA aerosol inhaler RxNo rm: 6877498 2 Puff(s) INH BID 04/06/2019 04/09/2019 Inactive oxycodone 15 mg tablet RxNorm: 7623902 1 Tablet(s) PO QID as nee ded for pain 04/05/2019 05/09/2019 Inactive levothyroxine 50 mcg tablet RxNorm: 413521 1 Tablet(s) PO QD 201804/09/2019 Inactive furosemide 40 mg tablet RxNorm: 510487 TAKE ONE TABLET BY MOUTH EVERY MORNING 03/21/2019 04/19/2019 Inactive levothyroxine 50 mcg tablet RxNorm: 338469 TAKE ONE TABLET BY M OUTH DAILY 03/21/2019 03/27/2019 Inactive Duragesic 100 mcg/hr transdermal patch RxNorm: 492612 2 Application TD Q48H for pain 03/13/2019 04/11/2019 Inactive oxycodone 15 mg tablet RxNorm: 5208191 1 Tablet(s) PO QID as nee ded for pain 03/06/2019 04/04/2019 Inactive Relistor 150 mg tablet RxNorm: 9405637 3 Tablet(s) PO QD 02/28/2019 0 05/28/2019 Inactive cyclobenzaprine 10 mg tablet RxNorm: 897466 1 Tablet(s) PO TID as needed 02/28/2019 05/28/2019 Inactive phentermine 37.5 mg tablet RxNorm: 409027 1 Tablet(s) PO QAM 201803/15/2019 Inactive Duragesic 100 mcg/hr transdermal patch RxNorm: 144870 2 Application TD Q48H for pain 02/09/2019 03/10/2019 Inactive Daliresp 500 mcg tablet RxNorm: 5665483 TAKE ONE TABLET BY MOUTH DAILY 01/31/2019 05/30/2019 Inactive Premarin 0.45 mg tablet RxNorm: 042114 1 Tablet(s) PO QD 01/31/2019 0 04/30/2019 Inactive fluoxetine 40 mg capsule RxNorm: 974964 Capsule(s) TAKE ONE CAPSULE BY MOUTH EVERY MORNING 01/31/2019 04/30/2019 Inactive levothyroxine 50 mcg tablet RxNorm: 487797 1 Tablet(s) PO QD 201804/10/2019 Inactive follow up in 3 weeks levothyroxine 50 mcg tablet RxNorm: 192402 1 Tablet(s) PO QD 201801/25/2019 Inactive follow up in 3 weeks potassium chloride ER 20 mEq tablet,extended release RxNorm: 075309 2 Tablet(s) PO BID 01/23/2019 01/08/2020 Inactive Synthroid 50 mcg tablet RxNorm: 183262 TAKE ONE TABLET BY MOUTH DAILY 01/16/2019 10/24/2019 Inactive potassium chloride ER 20 mEq tablet,extended release RxNorm: 837117 2 Tablet(s) PO BID 01/04/2019 01/22/2019 Inactive ProAir HFA 90 mcg/actuation aerosol inhaler RxNorm: 265911 INHALE ONE PUFF BY MOUTH EVERY 4 HOURS FOR WHEEZING OR SHORTNESS OF BREATH 01/04/201902/20 Inactive Request already responded to by other me ans (e.g. phone or fax) ProAir HFA 90 mcg/actuation aerosol inhaler RxNorm: 5200290 INHALE ONE PUFF BY MOUTH EVERY 4 HOURS FOR WHEEZING OR SHORTNESS OF BREATH 01/02/201912/23 Inactive gabapentin 300 mg capsule RxNorm: 968738 TAKE ONE CAPSULE BY MO UTH TWICE A DAY 12/30/2018 04/06/2019 Inactive furosemide 40 mg tablet RxNorm: 380755 1 Tablet(s) PO QAM 12/26/2018 02/23/2019 Inactive Compazine 10 mg tablet RxNorm: 001303 1 Tablet(s) PO QID as nee ded for nausea 12/07/2018 12/16/2018 Inactive metolazone 2.5 mg tablet RxNorm: 051916 TAKE ONE TABLET BY MOUT H EVERY MORNING 12/05/2018 01/03/2019 Inactive metformin ER 500 mg tablet,extended release 24 hr RxNorm: 86 0975 TAKE ONE TABLET BY MOUTH DAILY 12/05/2018 01/31/2020 Inactive Synthroid 50 mcg tablet RxNorm: 674923 1 Tablet(s) PO QD 11/25/2018 0 01/03/2019 Inactive DC any other synthroid strengths. Should be 50mcg only cyclobenzaprine 10 mg tablet RxNorm: 958201 TAKE ONE TA BLET BY MOUTH THREE TIMES A DAY NEEDED 11/09/2018 02/06/2019 Inactive metolazone 2.5 mg tablet RxNorm: 102059 1 Tablet(s) PO QAM repl aces 5mg dose 11/02/2018 12/01/2018 Inactive potassium chloride ER 20 mEq tablet,extended release RxNorm: 921301 2 Tablet(s) PO QD 2018 01/02/2019 Inactive Compazine 10 mg tablet RxNorm: 562322 1 Tablet(s) PO QID as nee ded for nausea 10/18/2018 12/07/2018 Inactive furosemide 40 mg tablet RxNorm: 017694 1 Tablet(s) PO QAM 10/12/2018 12/10/2018 Inactive ondansetron 8 mg disintegrating tablet RxNorm: 721546 1 Tablet(s) PO Q6H as needed 10/11/2018 10/17/2018 Inactive scopolamine 1 mg over 3 days transdermal patch RxNorm: 49274 2 1 Application TD behind ear. Take off after three days 10/11/2018 01/02/2019 Inactive furosemide 40 mg tablet RxNorm: 118167 1 Tablet(s) PO QAM 10/10/2018 12/26/2018 Inactive metolazone 5 mg tablet RxNorm: 914833 1 Tablet(s) PO QAM 10/06/2018 1 01/03/2018 Inactive metolazone 5 mg tablet RxNorm: 798582 1 Tablet(s) PO QAM 10/06/2018 1 12/05/2017 Inactive Xtampza ER 36 mg capsule sprinkle RxNorm: 9232431 1 Capsule(s) P O BID 10/05/2018 01/02/2019 Inactive Xtampza ER 36 mg capsule sprinkle RxNorm: 9189903 1 Capsule(s) P O BID 10/05/2018 02/12/2019 Inactive omeprazole 40 mg capsule,delayed release RxNorm: 095443 TAKE ONE CAPSULE BY MOUTH DAILY 10/03/2018 12/31/2018 Inactive Duragesic 100 mcg/hr transdermal patch RxNorm: 227236 2 Application TD Q48H for pain 09/30/2018 10/29/2018 Inactive Synthroid 50 mcg tablet RxNorm: 338519 1 Tablet(s) PO QD 09/29/2018 0 11/25/2018 Inactive DC any other synthroid strengths. Should be 50mcg only Synthroid 50 mcg tablet RxNorm: 667416 1 Tablet(s) PO QD 09/29/2018 1 11/28/2017 Inactive furosemide 40 mg tablet RxNorm: 152032 2 Tablet(s) PO Q AM for 1 week then every other day for 2 weeks 09/27/2018 10/12/2018 Inactive fluoxetine 40 mg capsule RxNorm: 074376 2 Capsule(s) PO QD 09/27/20 18 10/17/2018 Inactive potassium chloride ER 20 mEq tablet,extended release RxNorm: 885405 2 Tablet(s) PO QD for 1 week then every other day for 2 weeks 09/27/2018 2018 Inactive ProAir HFA 90 mcg/actuation aerosol inhaler RxNorm: 9591093 INHALE ONE PUFF BY MOUTH EVERY 4 HOURS FOR WHEEZING OR SHORTNESS OF BREATH 09/26/201811/23 Inactive Synthroid 75 mcg tablet RxNorm: 944940 1 Tablet(s) PO QD 09/09/2018 1 Inactive Synthroid 75 mcg tablet RxNorm: 334134 1 Tablet(s) PO QD 09/09/2018 1 11/28/2017 Inactive furosemide 40 mg tablet RxNorm: 395058 1 Tablet(s) PO QD 09/06/2018 1 Inactive potassium chloride ER 20 mEq tablet,extended release RxNorm: 145637 1 Tablet(s) PO QD 09/06/2018 09/19/2018 Inactive Duragesic 100 mcg/hr transdermal patch RxNorm: 362695 2 Application TD Q48H for pain 08/30/2018 09/28/2018 Inactive gabapentin 300 mg capsule RxNorm: 759219 TAKE ONE CAPSULE BY [facility] TWICE A DAY 08/23/2018 12/20/2018 Inactive Daliresp 500 mcg tablet RxNorm: 0051437 TAKE ONE TABLET BY MOUTH DAILY 08/23/2018 01/19/2019 Inactive Pulmicort 1 mg/2 mL suspension for nebulization RxNorm: 6168 19 USE ONE VIAL VIA NEBULIZER BY MOUTH TWICE A DAY 08/23/2018 07/11/2019 Inactive Synthroid 88 mcg tablet RxNorm: 354479 1 Tablet(s) PO QD 08/19/2018 1 Inactive Medrol (Aníbal) 4 mg tablets in a dose pack RxNorm: 389028 Tablet(s) PO take as directed 08/16/2018 09/05/2018 Inactive Relistor 150 mg tablet RxNorm: 3653347 3 Tablet(s) PO QD 08/16/2018 1 Inactive Zithromax Z-Aníbal 250 mg tablet RxNorm: 344950 Tablet(s) PO take as directed 08/16/2018 09/05/2018 Inactive cyclobenzaprine 10 mg tablet RxNorm: 921875 1 Tablet(s) PO TID as needed 08/16/2018 11/08/2018 Inactive Synthroid 88 mcg tablet RxNorm: 301321 1 Tablet(s) PO Q D NEEDS UPDATED LABS BEFORE FURTHER REFILLS 08/08/2018 08/19/2018 Inactive Premarin 0.45 mg tablet RxNorm: 511795 1 Tablet(s) PO QD 08/03/2018 0 01/31/2019 Inactive fluoxetine 20 mg capsule RxNorm: 013025 TAKE ONE CAPSULE BY [facility] DAILY 08/03/2018 09/26/2018 Inactive Xtampza ER 36 mg capsule sprinkle RxNorm: 0645402 1 Capsule(s) P O BID 08/03/2018 09/01/2018 Inactive metformin ER 500 mg tablet,extended release 24 hr RxNorm: 86 0975 1 Tablet(s) PO QD 08/03/2018 10/31/2018 Inactive Symbicort 160 mcg-4.5 mcg/actuation HFA aerosol inhaler RxNo rm: 4265659 2 Puff(s) INH BID 08/03/2018 01/29/2019 Inactive Duragesic 100 mcg/hr transdermal patch RxNorm: 827767 2 Application TD Q48H for pain 07/29/2018 08/27/2018 Inactive ProAir HFA 90 mcg/actuation aerosol inhaler RxNorm: 101092 INHALE TWO PUFFS BY MOUTH EVERY 4 HOURS FOR WHEEZING OR SHORTNESS OF BREATH 07/27/201802/2018 Inactive Relistor 150 mg tablet RxNorm: 8503145 3 Tablet(s) PO QD 07/20/2018 0 08/15/2018 Inactive metformin ER 500 mg tablet,extended release 24 hr RxNorm: 86 0975 TAKE ONE TABLET BY MOUTH DAILY 07/08/2018 08/02/2018 Inactive fluoxetine 40 mg capsule RxNorm: 350166 TAKE ONE CAPSULE BY BENOIT TH EVERY MORNING 07/08/2018 10/05/2018 Inactive Xtampza ER 18 mg capsule sprinkle RxNorm: 8279943 1 Capsule(s) P O BID 07/08/2018 08/02/2018 Inactive Relistor 150 mg tablet RxNorm: 8097946 3 Tablet(s) PO QD 07/08/2018 0 07/12/2018 Inactive Synthroid 88 mcg tablet RxNorm: 141003 1 Tablet(s) PO Q D NEEDS UPDATED LABS BEFORE FURTHER REFILLS 06/23/2018 07/07/2018 Inactive fluoxetine 40 mg capsule RxNorm: 456871 TAKE ONE CAPSULE BY BENOIT TH EVERY MORNING 06/15/2018 09/26/2018 Inactive orphenadrine citrate ER 100 mg tablet,extended release RxNor m: 120829 TAKE ONE TABLET BY MOUTH TWICE A DAY FOR MUSCLE SPASM 06/15/2018 08/15/2018 [place] ctive Duragesic 100 mcg/hr transdermal patch RxNorm: 508178 2 Application TD Q48H for pain 05/30/2018 06/28/2018 Inactive ProAir HFA 90 mcg/actuation aerosol inhaler RxNorm: 434070 INHALE TWO PUFFS BY MOUTH EVERY 4 HOURS FOR WHEEZING OR SHORTNESS OF BREATH 05/19/201803/2018 Inactive Chantix Continuing Month Box 1 mg tablet RxNorm: 959078 TAKE ONE TABLET BY MOUTH TWICE A DAY 05/19/2018 08/15/2018 Inactive oxycodone 10 mg tablet RxNorm: 5024853 1-2 Tablet(s) PO QID as n eeded for pain 05/19/2018 07/07/2018 Inactive gabapentin 300 mg capsule RxNorm: 338644 TAKE ONE CAPSULE BY [facility] TWICE A DAY 05/18/2018 07/16/2018 Inactive ProAir HFA 90 mcg/actuation aerosol inhaler RxNorm: 119299 INHALE TWO PUFFS BY MOUTH EVERY 4 HOURS FOR WHEEZING OR SHORTNESS OF BREATH 05/04/201804/23 Inactive Augmentin 500 mg-125 mg tablet RxNorm: 425258 1 Tablet(s) PO BID 05/03/2018 Inactive oxycodone 10 mg tablet RxNorm: 2548356 1-2 Tablet(s) PO QID as n eeded for pain 04/21/2018 05/18/2018 Inactive Synthroid 88 mcg tablet RxNorm: 394561 1 Tablet(s) PO QD 04/15/2018 0 08/08/2018 Inactive Symbicort 160 mcg-4.5 mcg/actuation HFA aerosol inhaler RxNo rm: 5645668 2 Puff(s) INH BID 04/15/2018 04/10/2019 Inactive Premarin 0.45 mg tablet RxNorm: 541290 1 Tablet(s) PO QD 04/15/2018 0 08/03/2018 Inactive ProAir HFA 90 mcg/actuation aerosol inhaler RxNorm: 554363 2 Puff(s) INH Q4H prn for wheezing or shortness of breath 04/15/2018 05/03/2018 Inactive metformin ER 500 mg tablet,extended release 24 hr RxNorm: 86 0975 1 Tablet(s) PO QD 04/11/2018 07/07/2018 Inactive omeprazole 40 mg capsule,delayed release RxNorm: 806119 TAKE ONE CAPSULE BY MOUTH DAILY 04/10/2018 06/08/2018 Inactive Synthroid 88 mcg tablet RxNorm: 181816 1 Tablet(s) PO QD 04/04/2018 0 04/14/2018 Inactive Synthroid 88 mcg tablet RxNorm: 906907 1 Tablet(s) PO QD 04/04/2018 0 04/03/2018 Inactive orphenadrine citrate ER 100 mg tablet,extended release RxNor m: 773320 1 Tablet(s) PO BID for muscle spasm 04/04/2018 05/03/2018 Inactive metformin ER 500 mg tablet,extended release 24 hr RxNorm: 86 0975 1 Tablet(s) PO QD NEEDS UPDATED LABS 03/31/2018 04/11/2018 Inactive doxycycline hyclate 100 mg capsule RxNorm: 8207368 1 Capsule(s) PO BID 03/31/2018 04/09/2018 Inactive prednisone 20 mg tablet RxNorm: 647131 3 Tablet(s) PO T ID for 3 days then 1 po BID for 3 days then one daily for 3 days 03/31/2018 07/06/2018 Inactiv e Chantix Continuing Month Box 1 mg tablet RxNorm: 515460 TAKE ONE TABLET BY MOUTH TWICE A DAY 03/25/2018 03/30/2018 Inactive oxycodone 10 mg tablet RxNorm: 6294292 1-2 Tablet(s) PO QID as n eeded for pain 03/21/2018 04/20/2018 Inactive Daliresp 500 mcg tablet RxNorm: 1189030 1 Tablet(s) PO QD 03/15/2018 08/22/2018 Inactive metformin ER 500 mg tablet,extended release 24 hr RxNorm: 86 0975 1 Tablet(s) PO QD NEEDS UPDATED LABS 03/14/2018 03/31/2018 Inactive nystatin 100,000 unit/mL oral suspension RxNorm: 439965 5 [place] liter(s) PO QID 03/02/2018 03/15/2018 Inactive nystatin 100,000 unit/mL oral suspension RxNorm: 290969 5 [place]io liter(s) PO QID 03/02/2018 03/01/2018 Inactive oxycodone 10 mg tablet RxNorm: 7342063 1-2 Tablet(s) PO QID as n eeded for pain 02/16/2018 03/20/2018 Inactive fluoxetine 20 mg capsule RxNorm: 103516 1 Capsule(s) PO QD 02/15/20 18 08/02/2018 Inactive metformin ER 500 mg tablet,extended release 24 hr RxNorm: 86 0975 1 Tablet(s) PO QD Needs updated labs 02/14/2018 03/14/2018 Inactive cefdinir 300 mg capsule RxNorm: 776569 1 Capsule(s) PO BID 01/27/20 18 02/04/2018 Inactive orphenadrine citrate ER 100 mg tablet,extended release RxNor m: 972901 1 Tablet(s) PO BID for muscle spasm 01/26/2018 04/04/2018 Inactive gabapentin 300 mg capsule RxNorm: 090763 1 Capsule(s) PO BID 201704/17/2018 Inactive oxycodone 10 mg tablet RxNorm: 2503714 1-2 Tablet(s) PO QID as n eeded for pain 01/17/2018 02/15/2018 Inactive Duragesic 100 mcg/hr transdermal patch RxNorm: 686860 2 Application TD Q48H for pain 01/17/2018 02/15/2018 Inactive gabapentin 300 mg capsule RxNorm: 738989 TAKE ONE CAPSULE BY MO UTH TWICE A DAY 12/20/2017 01/18/2018 Inactive fluoxetine 40 mg capsule RxNorm: 636497 TAKE ONE CAPSULE BY BENOIT TH EVERY MORNING 12/15/2017 03/14/2018 Inactive OneTouch Ultra Test strips RxNorm: TEST DAILY 11/04/2017 02/01/2018 Inactive gabapentin 300 mg capsule RxNorm: 274677 1 Capsule(s) P O TID replaces BID dosing 10/26/2017 02/22/2018 Inactive oxycodone 10 mg tablet RxNorm: 9913489 1-2 Tablet(s) PO QID as n eeded for pain 10/18/2017 01/16/2018 Inactive Duragesic 100 mcg/hr transdermal patch RxNorm: 075692 2 Application TD Q48H for pain 10/18/2017 11/16/2017 Inactive gabapentin 300 mg capsule RxNorm: 481385 1 Capsule(s) PO BID 201610/25/2017 Inactive Abilify 5 mg tablet RxNorm: 434110 1 Tablet(s) PO QAM 09/23/201702/2017 Inactive gabapentin 300 mg capsule RxNorm: 418040 1 Capsule(s) PO BID 201610/17/2017 Inactive oxycodone 10 mg tablet RxNorm: 9270409 1-2 Tablet(s) PO QID as n eeded for pain 09/15/2017 10/17/2017 Inactive Duragesic 100 mcg/hr transdermal patch RxNorm: 462400 2 Application TD Q48H for pain 09/15/2017 10/14/2017 Inactive Duragesic 100 mcg/hr transdermal patch RxNorm: 318367 2 Application TD Q48H for pain 09/15/2017 10/24/2019 Inactive oxycodone 10 mg tablet RxNorm: 5816059 1-2 Tablet(s) PO QID as n eeded for pain 09/15/2017 08/15/2018 Inactive Daliresp 500 mcg tablet RxNorm: 4070096 1 Tablet(s) PO QD 09/06/2017 03/15/2018 Inactive Ventolin HFA 90 mcg/actuation aerosol inhaler RxNorm: 915147 2 Puff(s) INH Q4H as needed 09/02/2017 05/19/2018 Inactive oxycodone 10 mg tablet RxNorm: 6321210 1-2 Tablet(s) PO QID as n eeded for pain 08/17/2017 09/14/2017 Inactive Duragesic 100 mcg/hr transdermal patch RxNorm: 509659 2 Application TD Q48H for pain 08/17/2017 09/14/2017 Inactive fluoxetine 40 mg capsule RxNorm: 777071 Capsule(s) TAKE ONE CAPSULE BY MOUTH EVERY MORNING 08/17/2017 12/14/2017 Inactive Pulmicort 1 mg/2 mL suspension for nebulization RxNorm: 6168 19 1 Unit Dose INH BID Dx: COPD (J44.9) 08/16/2017 08/22/2018 Inactive gabapentin 300 mg capsule RxNorm: 401201 1 Capsule(s) PO QHS 201610/18/2017 Inactive fluoxetine 20 mg capsule RxNorm: 494638 1 Capsule(s) PO QD 08/12/20 17 02/14/2018 Inactive Abilify 2 mg tablet RxNorm: 888204 1 Tablet(s) PO QD TA KE ONE TABLET BY MOUTH DAILY 08/12/2017 10/25/2017 Inactive metformin ER 500 mg tablet,extended release 24 hr RxNorm: 86 0975 1 Tablet(s) PO QD 08/10/2017 02/14/2018 Inactive Synthroid 112 mcg tablet RxNorm: 054948 1 Tablet(s) PO QD 08/10/2017 04/15/2018 Inactive oxycodone 10 mg tablet RxNorm: 2983497 1-2 Tablet(s) PO QID as n eeded for pain 07/19/2017 08/16/2017 Inactive Duragesic 100 mcg/hr transdermal patch RxNorm: 342101 2 Application TD Q48H for pain 07/19/2017 08/16/2017 Inactive Ventolin HFA 90 mcg/actuation aerosol inhaler RxNorm: 703632 2 Puff(s) INH Q4H as needed 07/12/2017 09/02/2017 Inactive Abilify 2 mg tablet RxNorm: 617118 1 Tablet(s) PO QD TA KE ONE TABLET BY MOUTH DAILY 07/06/2017 08/11/2017 Inactive gabapentin 800 mg tablet RxNorm: 182705 1 Tablet(s) PO TID 06/22/20 17 07/05/2017 Inactive Chantix Starting Month Box 0.5 mg (11)-1 mg (42) table ts in dose pack RxNorm: 342095 TAKE BY MOUTH INSTRUCTED - PER PACKAGE INSTRUCTIONS 06/0707/04/2017 Inactive Ventolin HFA 90 mcg/actuation aerosol inhaler RxNorm: 247254 2 Puff(s) INH Q4H as needed 05/26/2017 07/12/2017 Inactive Duragesic 100 mcg/hr transdermal patch RxNorm: 851575 2 Application TD Q48H for pain 05/19/2017 06/17/2017 Inactive oxycodone 10 mg tablet RxNorm: 3043192 1-2 Tablet(s) PO QID as n eeded for pain 05/19/2017 07/18/2017 Inactive Abilify 2 mg tablet RxNorm: 995026 TAKE ONE TABLET BY MOUTH DAILY 0 05/10/2017 07/05/2017 Inactive Synthroid 112 mcg tablet RxNorm: 800407 1 Tablet(s) PO QD 05/06/2017 08/10/2017 Inactive metformin ER 500 mg tablet,extended release 24 hr RxNorm: 86 0975 1 Tablet(s) PO QD 05/06/2017 08/10/2017 Inactive Topamax 100 mg tablet RxNorm: 270278 1 Tablet(s) PO QHS 05/06/2017 Inactive Premarin 0.45 mg tablet RxNorm: 604945 1 Tablet(s) PO QD 05/06/2017 0 04/15/2018 Inactive orphenadrine citrate ER 100 mg tablet,extended release RxNor m: 648791 1 Tablet(s) PO TID for muscle spasm--replaces methocarbamol 04/29/2017 Inactive oxycodone 10 mg tablet RxNorm: 1636968 1-2 Tablet(s) PO QID as n eeded for pain 04/21/2017 05/18/2017 Inactive Duragesic 100 mcg/hr transdermal patch RxNorm: 008015 2 Application TD Q48H for pain 04/21/2017 05/18/2017 Inactive fluoxetine 40 mg capsule RxNorm: 391211 Capsule(s) TAKE ONE CAPSULE BY MOUTH EVERY MORNING 04/20/2017 08/17/2017 Inactive Ventolin HFA 90 mcg/actuation aerosol inhaler RxNorm: 425569 2 Puff(s) INH Q4H as needed 04/05/2017 05/26/2017 Inactive Symbicort 160 mcg-4.5 mcg/actuation HFA aerosol inhaler RxNo rm: 1143559 2 Puff(s) INH BID 03/30/2017 04/15/2018 Inactive Spiriva with HandiHaler 18 mcg and inhalation capsules RxNor m: 175187 1 Capsule(s) INH QD USING HANDIHALER 03/30/2017 02/12/2019 Inactive Duragesic 100 mcg/hr transdermal patch RxNorm: 082375 2 Application TD Q48H for pain 03/18/2017 04/16/2017 Inactive oxycodone 10 mg tablet RxNorm: 2351440 1-2 Tablet(s) PO QID as n eeded for pain 03/18/2017 04/20/2017 Inactive metformin ER 500 mg tablet,extended release 24 hr RxNorm: 86 0975 Tablet(s) TAKE ONE TABLET BY MOUTH DAILY 03/01/2017 05/06/2017 Inactive Premarin 0.45 mg tablet RxNorm: 933014 Tablet(s) TAKE ONE TABLE T BY MOUTH DAILY 03/01/2017 05/06/2017 Inactive Synthroid 112 mcg tablet RxNorm: 110062 Tablet(s) TAKE ONE TABLET BY MOUTH DAILY 03/01/2017 05/06/2017 Inactive Daliresp 500 mcg tablet RxNorm: 8756667 1 Tablet(s) PO QD 03/01/2017 09/06/2017 Inactive 16.2 mg-0.1037 mg-0.0194 mg tablet RxNorm: 1235364 Tablet(s) PO PRN for gas and cramping 02/23/2017 04/28/2017 Inactive TAKE TWO TABLET S BY MOUTH THREE TIMES A DAY NEEDED FOR GAS AND CRAMPING gabapentin 800 mg tablet RxNorm: 600775 1 Tablet(s) PO TID repl aces 600mg 02/23/2017 04/28/2017 Inactive Duragesic 100 mcg/hr transdermal patch RxNorm: 021297 2 Application TD Q48H for pain 02/17/2017 03/17/2017 Inactive fluoxetine 20 mg capsule RxNorm: 001425 1 Capsule(s) PO QD 02/18/20 17 08/12/2017 Inactive oxycodone 20 mg tablet RxNorm: 8517233 1 Tablet(s) PO QID as nee ded for pain 02/17/2017 03/17/2017 Inactive Ventolin HFA 90 mcg/actuation aerosol inhaler RxNorm: 154700 INHALE TWO PUFFS BY MOUTH EVERY 4 HOURS NEEDED 02/15/2017 04/05/2017 Inactive Silvadene 1 % topical cream RxNorm: 575177 1 Application TOP BI D to burn area 02/01/2017 09/22/2017 Inactive Topamax 100 mg tablet RxNorm: 337894 TAKE ONE TABLET BY MOUTH EVERY NIGHT AT BEDTIME 01/29/2017 05/06/2017 Inactive Chantix Starting Month Box 0.5 mg (11)-1 mg (42) table ts in dose pack RxNorm: 916803 Tablet(s) PO as directed 01/29/2017 06/01/2017 Inactive Abilify 2 mg tablet RxNorm: 798136 TAKE ONE TABLET BY MOUTH DAILY 0 01/26/2017 04/25/2017 Inactive Chantix Starting Month Box 0.5 mg (11)-1 mg (42) table ts in dose pack RxNorm: 115629 Tablet(s) PO as directed 01/20/2017 01/28/2017 Inactive gabapentin 600 mg tablet RxNorm: 863502 1 Tablet(s) PO TID 01/21/20 17 02/22/2017 Inactive Chantix Continuing Month Box 1 mg tablet RxNorm: 424914 1 Table t(s) PO BID 12/31/2016 06/01/2017 Inactive Spiriva with HandiHaler 18 mcg and inhalation capsules RxNor m: 346930 INHALE THE ENTIRE CONTENTS OF 1 CAPSULE ONCE A DAY USING HANDIHALER 12/31/201607/2017 Inactive Synthroid 112 mcg tablet RxNorm: 758270 TAKE ONE TABLET BY MOUT H DAILY 12/30/2016 03/01/2017 Inactive metformin ER 500 mg tablet,extended release 24 hr RxNorm: 86 0975 TAKE ONE TABLET BY MOUTH DAILY 12/30/2016 03/01/2017 Inactive Premarin 0.45 mg tablet RxNorm: 647692 TAKE ONE TABLET BY MOUTH DAILY 12/30/2016 03/01/2017 Inactive omeprazole 40 mg capsule,delayed release RxNorm: 411618 TAKE ONE CAPSULE BY MOUTH DAILY 12/30/2016 01/25/2018 Inactive Ventolin HFA 90 mcg/actuation aerosol inhaler RxNorm: 563251 INHALE TWO PUFFS BY MOUTH EVERY 4 HOURS NEEDED 12/28/2016 02/13/2017 Inactive fluoxetine 40 mg capsule RxNorm: 437852 TAKE ONE CAPSULE BY BENOIT TH EVERY MORNING 12/15/2016 04/20/2017 Inactive Chantix Continuing Month Box 1 mg tablet RxNorm: 875474 TAKE ONE TABLET BY MOUTH TWICE A DAY 12/04/2016 12/31/2016 Inactive doxycycline hyclate 100 mg capsule RxNorm: 0876066 1 Capsule(s) PO BID 12/01/2016 12/07/2016 Inactive Levaquin 750 mg tablet RxNorm: 779875 1 Tablet(s) PO QD 12/01/2016 Inactive Abilify 2 mg tablet RxNorm: 820967 TAKE ONE TABLET BY MOUTH DAILY 0 11/25/2016 11/30/2016 Inactive Ventolin HFA 90 mcg/actuation aerosol inhaler RxNorm: 894282 INHALE TWO PUFFS BY MOUTH EVERY 4 HOURS NEEDED 11/02/2016 12/19/2016 Inactive Chantix Continuing Month Box 1 mg tablet RxNorm: 047458 Tablet(s) PO as directed 10/30/2016 12/03/2016 Inactive Symbicort 160 mcg-4.5 mcg/actuation HFA aerosol inhaler RxNo rm: 9989338 INHALE TWO PUFFS TWO TIMES A DAY 10/30/2016 03/30/2017 Inactive Abilify 2 mg tablet RxNorm: 944142 1 Tablet(s) PO QD 10/27/201611/24 Inactive amoxicillin 500 mg capsule RxNorm: 501158 1 Capsule(s) PO TID 10/1410/23/2016 Inactive amoxicillin 500 mg capsule RxNorm: 929221 1 Capsule(s) PO TID 10/1410/13/2016 Inactive Synthroid 112 mcg tablet RxNorm: 511075 TAKE ONE TABLET BY MOUT H DAILY 09/28/2016 12/29/2016 Inactive Topamax 100 mg tablet RxNorm: 239370 TAKE ONE TABLET BY MOUTH EVERY NIGHT AT BEDTIME 09/28/2016 01/28/2017 Inactive Premarin 0.45 mg tablet RxNorm: 184866 TAKE ONE TABLET BY MOUTH DAILY 09/28/2016 12/29/2016 Inactive metformin ER 500 mg tablet,extended release 24 hr RxNorm: 86 0975 TAKE ONE TABLET BY MOUTH DAILY 09/28/2016 12/29/2016 Inactive Ventolin HFA 90 mcg/actuation aerosol inhaler RxNorm: 209361 INHALE TWO PUFFS BY MOUTH EVERY 4 HOURS NEEDED 09/22/2016 10/23/2016 Inactive Pulmicort 1 mg/2 mL suspension for nebulization RxNorm: 6168 19 1 Unit Dose INH BID Dx: COPD (J44.9) 09/10/2016 08/16/2017 Inactive Pulmicort 1 mg/2 mL suspension for nebulization RxNorm: 6168 19 1 Unit Dose INH BID 09/10/2016 09/09/2016 Inactive Brovana 15 mcg/2 mL solution for nebulization RxNorm: 344109 1 Unit Dose INH BID Dx: COPD (J44.9) 09/10/2016 01/25/2018 Inactive Brovana 15 mcg/2 mL solution for nebulization RxNorm: 186954 1 Unit Dose INH BID 09/10/2016 09/09/2016 Inactive ipratropium-albuterol 0.5 mg-3 mg(2.5 mg base)/3 mL ne bulization soln RxNorm: 9540126 1 Unit Dose INH Q4H as needed Dx: COPD (J44.9) 09/10/2016 0 02/12/2019 Inactive orphenadrine citrate ER 100 mg tablet,extended release RxNor m: 889206 1 Tablet(s) PO BID for muscle spasm--replaces methocarbamol 09/09/2016 Inactive Chantix Continuing Month Box 1 mg tablet RxNorm: 729158 Tablet(s) PO as directed 09/09/2016 10/30/2016 Inactive orphenadrine citrate ER 100 mg tablet,extended release RxNor m: 184418 1 Tablet(s) PO BID for muscle spasm 09/09/2016 09/08/2016 Inactive Spiriva with HandiHaler 18 mcg and inhalation capsules RxNor m: 071482 INHALE THE ENTIRE CONTENTS OF 1 CAPSULE ONCE A DAY USING HANDIHALER 09/01/201605/2017 Inactive Daliresp 500 mcg tablet RxNorm: 3537368 1 Tablet(s) PO QD 08/27/2016 03/01/2017 Inactive prednisone 20 mg tablet RxNorm: 718308 3 Tablet(s) PO T ID for 3 days then 1 po BID for 3 days then one daily for 3 days 08/26/2016 04/28/2017 Inactiv e Wellbutrin XL 300 mg 24 hr tablet, extended release RxNorm: 256752 TAKE ONE TABLET BY MOUTH EVERY MORNING 07/29/2016 10/26/2016 Inactive gabapentin 600 mg tablet RxNorm: 004218 1 Tablet(s) PO BID 06/26/20 16 12/22/2016 Inactive fluoxetine 40 mg capsule RxNorm: 640003 TAKE ONE CAPSULE BY BENOIT TH EVERY MORNING 06/24/2016 11/20/2016 Inactive Duragesic 100 mcg/hr transdermal patch RxNorm: 799440 2 Application TD Q48H for pain 06/05/2016 07/04/2016 Inactive oxycodone 10 mg tablet RxNorm: 5167054 1-2 Tablet(s) PO QID as n eeded for pain 06/05/2016 03/17/2017 Inactive Belladonna-Phenobarbital 48 mg tablet,extended release RxNor m: 2 Tablet(s) PO TID 06/05/2016 01/19/2017 Inactive Premarin 0.45 mg tablet RxNorm: 775447 TAKE ONE TABLET BY MOUTH DAILY 05/27/2016 09/23/2016 Inactive Topamax 100 mg tablet RxNorm: 146724 TAKE ONE TABLET BY MOUTH EVERY NIGHT AT BEDTIME 05/27/2016 09/27/2016 Inactive Synthroid 112 mcg tablet RxNorm: 461615 TAKE ONE TABLET BY MOUT H DAILY 05/27/2016 09/23/2016 Inactive metformin ER 500 mg tablet,extended release 24 hr RxNorm: 86 0975 TAKE ONE TABLET BY MOUTH DAILY 05/27/2016 09/23/2016 Inactive Symbicort 160 mcg-4.5 mcg/actuation HFA aerosol inhaler RxNo rm: 9211247 INHALE TWO PUFFS TWO TIMES A DAY 05/27/2016 10/23/2016 Inactive Ventolin HFA 90 mcg/actuation aerosol inhaler RxNorm: 660897 INHALE TWO PUFFS BY MOUTH EVERY 4 HOURS NEEDED 05/21/2016 07/07/2016 Inactive omeprazole 40 mg capsule,delayed release RxNorm: 824146 1 Capsu le(s) PO QD 05/06/2016 08/03/2016 Inactive metformin ER 500 mg tablet,extended release 24 hr RxNorm: 86 0975 TAKE ONE TABLET BY MOUTH DAILY 04/23/2016 05/22/2016 Inactive methocarbamol 750 mg tablet RxNorm: 690135 2 Tablet(s) PO TID as needed for muscle spasm 04/23/2016 09/08/2016 Inactive Synthroid 112 mcg tablet RxNorm: 631588 TAKE ONE TABLET BY MOUT H DAILY 04/23/2016 05/22/2016 Inactive Spiriva with HandiHaler 18 mcg and inhalation capsules RxNor m: 336405 INHALE THE ENTIRE CONTENTS OF 1 CAPSULE ONCE A DAY USING HANDIHALER 04/09/201608/2016 Inactive Diflucan 100 mg tablet RxNorm: 063950 1 Tablet(s) PO QD 04/08/2016 Inactive doxycycline hyclate 100 mg capsule RxNorm: 4827174 1 Capsule(s) PO BID 04/08/2016 04/17/2016 Inactive doxycycline hyclate 100 mg capsule RxNorm: 7154969 1 Capsule(s) PO BID 04/08/2016 04/07/2016 Inactive Diflucan 100 mg tablet RxNorm: 511685 1 Tablet(s) PO QD 04/08/2016 Inactive ondansetron HCl 4 mg tablet RxNorm: 449298 1 Tablet(s) PO Q4H as needed for nausea and vomiting 04/08/2016 09/22/2017 Inactive gabapentin 600 mg tablet RxNorm: 610781 TAKE ONE TABLET BY MOUT H TWICE A DAY 03/24/2016 06/25/2016 Inactive Synthroid 112 mcg tablet RxNorm: 893460 TAKE ONE TABLET BY MOUT H DAILY 02/25/2016 04/22/2016 Inactive Levaquin 500 mg tablet RxNorm: 693085 1 Tablet(s) PO QD 01/23/2016 Inactive prednisone 20 mg tablet RxNorm: 335167 1 Tablet(s) PO T ID for 3 days then 1 po BID for 3 days then one daily for 3 days 01/23/2016 08/25/2016 Inactiv e Sybari Ultra Test strips RxNorm: TEST BLOOD SUGAR ONCE DAILY 250.00 01/09/2016 11/04/2017 Inactive methocarbamol 750 mg tablet RxNorm: 533092 2 Tablet(s) PO TID as needed for muscle spasm 01/09/2016 04/23/2016 Inactive lactulose 10 gram/15 mL oral solution RxNorm: 321373 [address](s) PO QD 01/09/2016 09/22/2017 Inactive TAKE 1 TABLESPOON BY MOUTH ONCE DAILY metformin ER 500 mg tablet,extended release 24 hr RxNorm: 86 0975 1 Tablet(s) PO QD 12/26/2015 04/22/2016 Inactive fluoxetine 20 mg capsule RxNorm: 511368 1 Capsule(s) PO QD 12/23/19 16 06/19/2016 Inactive Premarin 0.45 mg tablet RxNorm: 425697 TAKE ONE TABLET BY MOUTH DAILY 12/23/2015 05/20/2016 Inactive fluoxetine 40 mg capsule RxNorm: 420887 1 Capsule(s) PO QD 12/23/19 16 06/19/2016 Inactive TAKE ONE CAPSULE BY MOUTH EV JANKI MORNING azithromycin 500 mg tablet RxNorm: 036809 1 Tablet(s) PO QD 016 12/19/2015 Inactive Zofran 4 mg tablet RxNorm: 600307 1 Tablet(s) PO Q4H prn nausea /vomiting 12/13/2015 03/30/2018 Inactive azithromycin 500 mg tablet RxNorm: 481250 1 Tablet(s) PO QD 016 12/12/2015 Inactive Duragesic 100 mcg/hr transdermal patch RxNorm: 265917 2 Application TD Q48H for pain 12/09/2015 01/07/2016 Inactive oxycodone 10 mg tablet RxNorm: 9370677 1-2 Tablet(s) PO QID as n eeded for pain 12/09/2015 06/04/2016 Inactive Bactroban 2 % topical cream RxNorm: 110275 Application TOP BID 11/2208/25/2016 Inactive doxycycline hyclate 100 mg capsule RxNorm: 8021796 1 Capsule(s) PO BID 12/03/2015 12/12/2015 Inactive Topamax 100 mg tablet RxNorm: 187483 TAKE ONE TABLET BY MOUTH EVERY NIGHT AT BEDTIME 11/25/2015 05/22/2016 Inactive Symbicort 160 mcg-4.5 mcg/actuation HFA aerosol inhaler RxNo rm: 1840414 INHALE TWO PUFFS TWO TIMES A DAY 11/25/2015 05/22/2016 Inactive Synthroid 112 mcg tablet RxNorm: 689399 Tablet(s) TAKE ONE TABLET BY MOUTH DAILY 11/25/2015 02/22/2016 Inactive omeprazole 40 mg capsule,delayed release RxNorm: 752439 1 Capsu le(s) PO QD 11/12/2015 05/05/2016 Inactive oxycodone 10 mg tablet RxNorm: 9351210 1-2 Tablet(s) PO QID as n eeded for pain 11/05/2015 12/08/2015 Inactive Duragesic 100 mcg/hr transdermal patch RxNorm: 952619 2 Application TD Q48H for pain 11/05/2015 12/04/2015 Inactive omeprazole 40 mg capsule,delayed release RxNorm: 790176 1 Capsu le(s) PO QD 10/07/2015 11/11/2015 Inactive Januvia 100 mg tablet RxNorm: 282726 TAKE ONE TABLET BY MOUTH DAILY 09/11/2015 12/25/2015 Inactive Zithromax 500 mg tablet RxNorm: 980447 1 Tablet(s) PO QD 09/10/2015 1 Inactive prednisone 20 mg tablet RxNorm: 067141 1 Tablet(s) PO T ID for 3 days then 1 po BID for 3 days then one daily for 3 days 09/10/2015 08/25/2016 Inactiv e Wellbutrin XL 300 mg 24 hr tablet, extended release RxNorm: 957204 1 Tablet(s) PO QAM 09/10/2015 12/02/2015 Inactive Topamax 100 mg tablet RxNorm: 938304 TAKE ONE TABLET BY MOUTH EVERY NIGHT AT BEDTIME 09/02/2015 11/24/2015 Inactive Synthroid 112 mcg tablet RxNorm: 751937 TAKE ONE TABLET BY MOUT H DAILY 09/02/2015 11/25/2015 Inactive methocarbamol 750 mg tablet RxNorm: 746629 2 Tablet(s) PO TID as needed for muscle spasm 08/15/2015 01/09/2016 Inactive Wellbutrin XL 150 mg 24 hr tablet, extended release RxNorm: 317724 TAKE ONE TABLET BY MOUTH EVERY MORNING 08/13/2015 08/13/2015 Inactive gabapentin 600 mg tablet RxNorm: 357337 1 Tablet(s) PO BID 08/13/20 15 02/08/2016 Inactive Wellbutrin XL 300 mg 24 hr tablet, extended release RxNorm: 722590 1 Tablet(s) PO QAM 08/06/2015 09/09/2015 Inactive Wellbutrin XL 150 mg 24 hr tablet, extended release RxNorm: 651573 1 Tablet(s) PO QAM 07/18/2015 08/05/2015 Inactive prednisone 20 mg tablet RxNorm: 228141 1 Tablet(s) PO BID 07/18/2015 07/22/2015 Inactive doxycycline hyclate 100 mg tablet,delayed release RxNorm: 43 4018 1 Tablet(s) PO BID 07/18/2015 07/27/2015 Inactive pravastatin 40 mg tablet RxNorm: 713221 1 Tablet(s) PO QD NEEDS FASTING LAB 07/15/2015 07/14/2015 Inactive pravastatin 40 mg tablet RxNorm: 592331 1 Tablet(s) PO QD NEEDS FASTING LAB 07/15/2015 01/25/2018 Inactive Ventolin HFA 90 mcg/actuation aerosol inhaler RxNorm: 119424 2 Puff(s) INH Q4H 07/08/2015 07/07/2015 Inactive prn Premarin 0.45 mg tablet RxNorm: 309372 1 Tablet(s) PO QD 07/01/2015 0 12/22/2015 Inactive pravastatin 40 mg tablet RxNorm: 977811 1 Tablet(s) PO QD NEEDS FASTING LAB 06/14/2015 07/15/2015 Inactive Ventolin HFA 90 mcg/actuation aerosol inhaler RxNorm: 0597269 2 Puff(s) INH Q4H 06/06/2015 07/08/2015 Inactive prn albuterol sulfate 2.5 mg/3 mL (0.083 %) solution for n ebulization RxNorm: 860753 1 Unit Dose INH QID 05/30/2015 No Stop Date Active Duragesic 100 mcg/hr transdermal patch RxNorm: 642017 2 Application TD Q48H for pain 04/29/2015 05/28/2015 Inactive gabapentin 600 mg tablet RxNorm: 437380 1 Tablet(s) PO BID 04/11/20 15 08/13/2015 Inactive Onglyza 5 mg tablet RxNorm: 282150 1 Tablet(s) PO QD for blood suga r 04/10/2015 04/15/2015 Inactive [Brand Copay Card: RxBIN:[id number] PCN:CRISTIANA RxGRP:[id number] ID#:[id number]] methocarbamol 750 mg tablet RxNorm: 983873 2 Tablet(s) PO TID as needed for muscle spasm 03/28/2015 08/15/2015 Inactive pravastatin 40 mg tablet RxNorm: 134973 1 Tablet(s) PO QD 03/19/2015 03/18/2015 Inactive pravastatin 40 mg tablet RxNorm: 961329 1 Tablet(s) PO QD 03/19/2015 06/14/2015 Inactive lactulose 10 gram/15 mL oral solution RxNorm: 880044 [address]s) PO QD 03/07/2015 01/09/2016 Inactive TAKE 1 TABLESPOON BY MOUTH ONCE DAILY oxycodone 20 mg tablet RxNorm: 5332242 1 Tablet(s) PO QID as nee ded for pain 03/05/2015 07/08/2015 Inactive Topamax 100 mg tablet RxNorm: 133963 1 Tablet(s) PO QHS TAKE ONE TABLET BY MOUTH AT BEDTIME 02/25/2015 02/12/2019 Inactive metformin ER 500 mg tablet,extended release 24 hr RxNorm: 86 0975 1 Tablet(s) PO QD 02/11/2015 03/04/2015 Inactive take one tablet by mouth every day Daliresp 500 mcg tablet RxNorm: 0008022 1 Tablet(s) PO QD 02/11/2015 08/09/2015 Inactive Endocet 10 mg-325 mg tablet RxNorm: 6636512 1 Tablet(s) PO Q4H as needed for pain 01/23/2015 01/23/2015 Inactive gabapentin 600 mg tablet RxNorm: 930770 1 Tablet(s) PO BID 01/23/20 15 04/11/2015 Inactive methocarbamol 750 mg tablet RxNorm: 191143 2 Tablet(s) PO TID as needed for muscle spasm 01/15/2015 02/13/2015 Inactive fluoxetine 40 mg capsule RxNorm: 689000 1 Capsule(s) PO QD 01/14/20 15 12/23/2015 Inactive TAKE ONE CAPSULE BY MOUTH EV JANKI MORNING fluoxetine 20 mg capsule RxNorm: 592912 1 Capsule(s) PO QD 01/14/20 15 12/23/2015 Inactive Premarin 0.45 mg tablet RxNorm: 312404 1 Tablet(s) PO QD 01/02/2015 0 07/01/2015 Inactive Endocet 10 mg-325 mg tablet RxNorm: 2200101 1-2 Tablet(s) PO Q4H 02/12/2019 Inactive PRN PAIN Duragesic 100 mcg/hr transdermal patch RxNorm: 000510 2 Application TD Q48H for pain 12/25/2014 01/23/2015 Inactive Topamax 100 mg tablet RxNorm: 919004 1 Tablet(s) PO QHS TAKE ONE TABLET BY MOUTH AT BEDTIME 12/25/2014 02/24/2015 Inactive Tudorza Pressair 400 mcg/actuation breath activated RxNorm: 4218722 1 BID INHALE ONE PUFF INTO LUNGS TWO TIMES A DAY 12/17/2014 05/15/2015 Inactive Endocet 10 mg-325 mg tablet RxNorm: 6829704 1-2 Tablet(s) PO Q4H 12/19/2014 Inactive PRN PAIN Duragesic 100 mcg/hr transdermal patch RxNorm: 307453 2 Application TD Q48H for pain 11/20/2014 12/24/2014 Inactive OneTouch Ultra Test strips RxNorm: TEST BLOOD SUGAR ONCE DAILY 250.00 11/16/2014 01/08/2016 Inactive omeprazole 40 mg capsule,delayed release RxNorm: 763953 1 Capsu le(s) PO QD 11/13/2014 11/12/2015 Inactive metformin ER 500 mg tablet,extended release 24 hr RxNorm: 86 0975 1 Tablet(s) PO QD 11/12/2014 02/11/2015 Inactive take one tablet by mouth every day Symbicort 160 mcg-4.5 mcg/actuation HFA aerosol inhaler RxNo rm: 7729729 2 Puff(s) INH BID 11/12/2014 03/11/2015 Inactive INHALE 2 PUFFS O RALLY TWO TIMES A DAY gabapentin 800 mg tablet RxNorm: 286778 1 Tablet(s) PO QD TAKE ONE TABLET BY MOUTH ONCE A DAY 10/22/2014 01/01/2015 Inactive Endocet 10 mg-325 mg tablet RxNorm: 5466267 1-2 Tablet(s) PO Q4H 11/15/2014 Inactive PRN PAIN Duragesic 100 mcg/hr transdermal patch RxNorm: 260446 2 Application TD Q48H for pain 10/17/2014 11/19/2014 Inactive gabapentin 800 mg tablet RxNorm: 122744 1 Tablet(s) PO QD TAKE ONE TABLET BY MOUTH ONCE A DAY 10/04/2014 10/21/2014 Inactive Premarin 0.9 mg tablet RxNorm: 956671 1 Tablet(s) PO QD TAKE ONE TABLET BY MOUTH ONCE A DAY 10/04/2014 01/01/2015 Inactive Spiriva with HandiHaler 18 mcg & inhalation capsules RxNorm: 316295 1 Capsule(s) INH QD 10/03/2014 04/30/2015 Inactive Levaquin 500 mg tablet RxNorm: 479130 1 Tablet(s) PO QD 10/03/2014 Inactive prednisone 20 mg tablet RxNorm: 335120 1 Tablet(s) PO QD 10/03/2014 1 12/09/2013 Inactive Duragesic 100 mcg/hr transdermal patch RxNorm: 672143 2 Application TD Q48H for pain 09/18/2014 10/16/2014 Inactive Endocet 10 mg-325 mg tablet RxNorm: 1394196 1-2 Tablet(s) PO Q4H 10/16/2014 Inactive PRN PAIN Synthroid 112 mcg tablet RxNorm: 905623 1 Tablet(s) QD 09/10/2014 Inactive Synthroid 112 mcg tablet RxNorm: 382134 TAKE ONE TABLET BY MOUTH ONE TIME A DAY. NEEDS LABS 09/10/2014 02/06/2015 Inactive omeprazole 40 mg capsule,delayed release RxNorm: 608993 1 Capsu le(s) PO QD 09/03/2014 11/13/2014 Inactive omeprazole 40 mg capsule,delayed release RxNorm: 410074 1 Capsu le(s) PO QD 09/03/2014 09/02/2014 Inactive Spiriva with HandiHaler 18 mcg & inhalation capsules RxNorm: 752958 1 Capsule(s) INH QD 08/27/2014 10/02/2014 Inactive gabapentin 600 mg tablet RxNorm: 551168 1 Tablet(s) PO BID 08/27/20 14 10/22/2014 Inactive Endocet 10 mg-325 mg tablet RxNorm: 8994555 1-2 Tablet(s) PO Q4H 09/17/2014 Inactive PRN PAIN fentanyl 100 mcg/hr transdermal patch RxNorm: 491839 1 Unit Dos e TD QD 08/21/2014 09/19/2014 Inactive Daliresp 500 mcg tablet RxNorm: 7121155 1 Tablet(s) PO QD 08/13/2014 02/11/2015 Inactive Synthroid 112 mcg tablet RxNorm: 128972 TAKE ONE TABLET BY MOUTH ONE TIME A DAY. NEEDS LABS 08/10/2014 09/10/2014 Inactive Endocet 10 mg-325 mg tablet RxNorm: 0164126 1-2 Tablet(s) PO Q4H 08/17/2014 Inactive PRN PAIN Duragesic 100 mcg/hr transdermal patch RxNorm: 618420 2 Application TD Q48H for pain 07/19/2014 09/17/2014 Inactive fluoxetine 40 mg capsule RxNorm: 180782 1 Capsule(s) PO QD 07/17/20 14 01/14/2015 Inactive TAKE ONE CAPSULE BY MOUTH EV JANKI MORNING fluoxetine 20 mg capsule RxNorm: 485390 1 Capsule(s) PO QD 07/17/20 14 01/14/2015 Inactive Spiriva with HandiHaler 18 mcg & inhalation capsules RxNorm: 827262 1 Capsule(s) INH QD 07/17/2014 08/26/2014 Inactive INHALE CONTENTS OF 1 CAPSULE(S) WITH HANDIHALER ONCE DAILY Zofran 4 mg tablet RxNorm: 728707 1 Tablet(s) PO Q4H prn nausea 07/25/2014 Inactive Synthroid 112 mcg tablet RxNorm: 547040 1 Tablet(s) PO QD 07/09/2014 07/09/2014 Inactive methocarbamol 750 mg tablet RxNorm: 177536 2 Tablet(s) PO TID as needed for muscle spasm 07/09/2014 09/06/2014 Inactive Synthroid 112 mcg tablet RxNorm: 127800 1 Tablet(s) PO QD - nee d labs 07/09/2014 08/07/2014 Inactive Medrol (Aníbal) 4 mg tablets in a dose pack RxNorm: 527902 6 Tablet(s) PO QD --then as directed 07/03/2014 07/08/2014 Inactive Tudorza Pressair 400 mcg/actuation breath activated RxNorm: 2212171 1 Puff(s) INH BID 07/03/2014 12/17/2014 Inactive cefdinir 300 mg capsule RxNorm: 587704 1 Capsule(s) PO BID 07/03/20 14 07/12/2014 Inactive Topamax 100 mg tablet RxNorm: 348921 Tablet(s) TAKE ONE TABLET BY MOUTH AT BEDTIME 07/02/2014 02/25/2015 Inactive Duragesic 100 mcg/hr transdermal patch RxNorm: 613151 2 Application TD Q48H for pain 06/25/2014 07/18/2014 Inactive Endocet 10 mg-325 mg tablet RxNorm: 5111075 1-2 Tablet(s) PO Q4H 07/18/2014 Inactive PRN PAIN metformin ER 500 mg tablet,extended release 24 hr RxNorm: 86 0975 1 Tablet(s) PO QD Needs labs 06/18/2014 07/01/2014 Inactive take one tablet by mouth every day Duragesic 100 mcg/hr transdermal patch RxNorm: 108095 2 Application TD Q48H for pain 05/22/2014 06/24/2014 Inactive Synthroid 112 mcg tablet RxNorm: 359801 1 Tablet(s) PO QD 05/22/2014 07/09/2014 Inactive Endocet 10 mg-325 mg tablet RxNorm: 9745116 1-2 Tablet(s) PO Q4H 06/20/2014 Inactive PRN PAIN Endocet 10 mg-325 mg tablet RxNorm: 6718126 1-2 Tablet(s) PO Q4H 05/21/2014 Inactive PRN PAIN Duragesic 100 mcg/hr transdermal patch RxNorm: 842491 2 Application TD Q48H for pain 04/25/2014 05/21/2014 Inactive Daliresp 500 mcg tablet RxNorm: 2878448 1 Tablet(s) PO QD 04/24/2014 08/13/2014 Inactive Symbicort 160 mcg-4.5 mcg/actuation HFA aerosol inhaler RxNo rm: 8950044 2 Puff(s) INH BID 04/24/2014 08/21/2014 Inactive INHALE 2 PUFFS O RALLY TWO TIMES A DAY metformin ER 500 mg tablet,extended release 24 hr RxNorm: 86 0975 1 Tablet(s) PO QD 04/24/2014 11/12/2014 Inactive TAKE ONE TABLET BY MOUTH EVERY DAY [AttnRPh:Saving Apply/Adjudicate RxGRP:LDMGRP RxBIN:[id number] RxPCN:2012 PCode:01 ID#:[id number]] Symbicort 160 mcg-4.5 mcg/actuation HFA aerosol inhaler RxNo rm: 4805013 2 Puff(s) INH BID 04/24/2014 11/12/2014 Inactive INHALE 2 PUFFS O RALLY TWO TIMES A DAY Premarin 0.9 mg tablet RxNorm: 904067 1 Tablet(s) PO QD 04/24/2014 Inactive TAKE ONE TABLET BY MOUTH EVERY DAY metformin ER 500 mg tablet,extended release 24 hr RxNorm: 86 0975 1 Tablet(s) PO QD Needs labs 04/24/2014 06/18/2014 Inactive TAKE ONE TABLET BY MOUTH EVERY DAY [AttnRPh:Saving Apply/Adjudicate RxGRP:LDMGRP RxBIN:[id number] RxPCN:2012 PCode:01 ID#:[id number]] gabapentin 800 mg tablet RxNorm: 617389 1 Tablet(s) PO QD 04/24/2014 10/04/2014 Inactive TAKE ONE TABLET BY MOUTH EVERY DAY Topamax 100 mg tablet RxNorm: 403280 1 Tablet(s) PO QHS 04/17/2014 Inactive Topamax 100 mg tablet RxNorm: 071725 TAKE ONE TABLET BY MOUTH A T BEDTIME 04/17/2014 07/01/2014 Inactive Tudorza Pressair 400 mcg/actuation breath activated RxNorm: 1715106 1 Puff(s) INH BID 04/11/2014 07/02/2014 Inactive Duragesic 100 mcg/hr transdermal patch RxNorm: 021341 2 Application TD Q48H for pain 03/27/2014 04/24/2014 Inactive Endocet 10 mg-325 mg tablet RxNorm: 6962694 1-2 Tablet(s) PO Q4H 04/24/2014 Inactive PRN PAIN Robaxin 750 mg tablet RxNorm: 561302 2 Tablet(s) PO TID as need ed for spasm 02/23/2014 03/28/2015 Inactive Duragesic 100 mcg/hr transdermal patch RxNorm: 525687 2 Application TD Q48H for pain 02/23/2014 No Stop Date Active Endocet 10 mg-325 mg tablet RxNorm: 4927427 1-2 Tablet(s) PO Q4H 03/23/2014 Inactive PRN PAIN Synthroid 112 mcg tablet RxNorm: 996922 1 Tablet(s) PO QD TAKE ONE TABLET BY MOUTH EVERY DAY 02/15/2014 05/22/2014 Inactive Zithromax 500 mg tablet RxNorm: 748995 1 Tablet(s) PO QD 01/30/2014 0 02/05/2014 Inactive Diflucan 100 mg tablet RxNorm: 952437 1 Tablet(s) PO QD 01/30/2014 Inactive prednisone 20 mg tablet RxNorm: 527775 1 Tablet(s) PO BID 01/30/2014 02/05/2014 Inactive fluoxetine 40 mg capsule RxNorm: 522354 1 Capsule(s) PO QD 01/23/20 14 07/16/2014 Inactive TAKE ONE CAPSULE BY MOUTH EV JANKI MORNING fluoxetine 40 mg capsule RxNorm: 255503 1 Capsule(s) PO QD 01/23/20 14 07/17/2014 Inactive TAKE ONE CAPSULE BY MOUTH EV JANKI MORNING cefdinir 300 mg capsule RxNorm: 761326 1 Capsule(s) PO BID 01/16/20 14 01/29/2014 Inactive Zithromax 500 mg tablet RxNorm: 740610 1 Tablet(s) PO QD 01/16/2014 0 01/22/2014 Inactive prednisone 20 mg tablet RxNorm: 427791 1 Tablet(s) PO BID 01/16/2014 01/22/2014 Inactive Spiriva with HandiHaler 18 mcg and inhalation capsules RxNor m: 411720 1 Capsule(s) INH QD 12/18/2013 07/17/2014 Inactive INHALE CONTENT S OF 1 CAPSULE(S) WITH HANDIHALER ONCE DAILY fluoxetine 20 mg capsule RxNorm: 935756 1 Capsule(s) PO QD 12/18/19 14 06/15/2014 Inactive Spiriva with HandiHaler 18 mcg & inhalation capsules RxNorm: 651171 1 Capsule(s) INH QD 12/18/2013 06/15/2014 Inactive INHALE CONTENTS OF 1 CAPSULE(S) WITH HANDIHALER ONCE DAILY fluoxetine 20 mg capsule RxNorm: 357181 1 Capsule(s) PO QD 12/18/19 14 07/17/2014 Inactive cefdinir 300 mg capsule RxNorm: 191224 2 Capsule(s) PO QD 12/12/2013 12/21/2013 Inactive Duragesic 100 mcg/hr transdermal patch RxNorm: 525188 2 Application TD Q48H for pain 12/08/2013 12/07/2013 Inactive Topamax 100 mg tablet RxNorm: 560158 1 Tablet(s) PO QHS 12/04/2013 Inactive Endocet 10 mg-325 mg tablet RxNorm: 1899759 1-2 Tablet(s) PO Q4H 12/26/2013 Inactive PRN PAIN Robaxin 750 mg tablet RxNorm: 533817 2 Tablet(s) PO TID as need ed for spasm 11/07/2013 01/05/2014 Inactive gabapentin 800 mg tablet RxNorm: 292220 1 Tablet(s) PO QD 10/16/2013 04/24/2014 Inactive TAKE ONE TABLET BY MOUTH EVERY DAY Symbicort 160 mcg-4.5 mcg/actuation HFA aerosol inhaler RxNo rm: 6815527 2 Puff(s) INH BID 10/16/2013 04/24/2014 Inactive INHALE 2 PUFFS O RALLY TWO TIMES A DAY Premarin 0.9 mg tablet RxNorm: 456658 1 Tablet(s) PO QD 10/16/2013 Inactive TAKE ONE TABLET BY MOUTH EVERY DAY metformin ER 500 mg tablet,extended release 24 hr RxNorm: 86 0975 1 Tablet(s) PO QD 10/16/2013 04/24/2014 Inactive TAKE ONE TABLET BY MOUTH EVERY DAY Daliresp 500 mcg tablet RxNorm: 1647633 1 Tablet(s) PO QD 10/16/2013 04/24/2014 Inactive Robaxin 750 mg tablet RxNorm: 187875 2 Tablet(s) PO TID as need ed for spasm 10/10/2013 11/06/2013 Inactive Duragesic 100 mcg/hr transdermal patch RxNorm: 905550 2 Application TD Q48H for pain 10/09/2013 No Stop Date Active Soma 350 mg tablet RxNorm: 064181 1 Tablet(s) PO TID 09/27/201310/09 Inactive TAKE ONE TABLET BY MOUTH THREE TIMES A D AY lactulose 10 gram/15 mL oral solution RxNorm: 106037 [address](s) PO QD 09/13/2013 03/07/2015 Inactive TAKE 1 TABLESPOON BY MOUTH ONCE DAILY Duragesic 100 mcg/hr transdermal patch RxNorm: 397541 2 Application TD Q48H for pain 09/06/2013 No Stop Date Active Endocet 10 mg-325 mg tablet RxNorm: 2248540 1-2 Tablet(s) PO Q4H 09/27/2013 Inactive PRN PAIN lancets 28 gauge RxNorm: Miscellaneous As needed for blo od glucose sticks 08/24/2013 No Stop Date Active 16.2 mg-0.1037 mg-0.0194 mg tablet RxNorm: 6504801 Tablet(s) PO PRN for gas and cramping 08/24/2013 01/19/2017 Inactive TAKE TWO TABLET S BY MOUTH THREE TIMES A DAY NEEDED FOR GAS AND CRAMPING Topamax 100 mg tablet RxNorm: 670795 1 Tablet(s) PO QHS 07/31/2013 Inactive Diflucan 100 mg tablet RxNorm: 377272 1 Tablet(s) PO QD 07/27/2013 Inactive cefdinir 300 mg capsule RxNorm: 903233 1 Capsule(s) PO BID 07/26/20 13 08/08/2013 Inactive Daliresp 500 mcg tablet RxNorm: 9642113 1 Tablet(s) PO QD 07/25/2013 10/15/2013 Inactive fluoxetine 40 mg capsule RxNorm: 800085 1 Capsule(s) PO QD 07/25/20 13 01/22/2014 Inactive TAKE ONE CAPSULE BY MOUTH EV JANKI MORNING Senokot-S 8.6 mg-50 mg tablet RxNorm: 6448628 1 Tablet(s) PO BID 10/25/2013 Inactive doxycycline hyclate 100 mg capsule RxNorm: 1932303 1 Capsule(s) PO BID 06/28/2013 07/07/2013 Inactive prednisone 20 mg tablet RxNorm: 571837 1 Tablet(s) PO BID 06/28/2013 07/04/2013 Inactive Zofran 4 mg tablet RxNorm: 683433 1 Tablet(s) PO Q4H prn nausea 03/201307/05/2013 Inactive Spiriva with HandiHaler 18 mcg & inhalation capsules RxNorm: 695102 1 Capsule(s) INH QD 06/26/2013 12/18/2013 Inactive INHALE CONTENTS OF 1 CAPSULE(S) WITH HANDIHALER ONCE DAILY Synthroid 112 mcg tablet RxNorm: 320221 1 Tablet(s) PO QD TAKE ONE TABLET BY MOUTH EVERY DAY 06/19/2013 02/15/2014 Inactive fluoxetine 20 mg capsule RxNorm: 170023 1 Capsule(s) PO QD 06/19/20 13 12/18/2013 Inactive Ventolin HFA 90 mcg/actuation Aerosol Inhaler RxNorm: 2435004 2 Puff(s) INH Q4H 06/05/2013 No Stop Date Active prn Soma 350 mg tablet RxNorm: 000384 1 Tablet(s) PO TID 06/05/201307/04 Inactive TAKE ONE TABLET BY MOUTH THREE TIMES A D AY prednisone 20 mg tablet RxNorm: 227802 1 Tablet(s) PO QD 05/31/2013 0 06/06/2013 Inactive Topamax 100 mg tablet RxNorm: 541429 1 Tablet(s) PO QHS 05/22/2013 Inactive Levaquin 500 mg tablet RxNorm: 888549 1 Tablet(s) PO QD 05/03/2013 Inactive Diflucan 100 mg tablet RxNorm: 148447 1 Tablet(s) PO QD 05/03/2013 Inactive Daliresp 500 mcg tablet RxNorm: 0654023 1 Tablet(s) PO QD 05/01/2013 07/24/2013 Inactive Daliresp 500 mcg tablet RxNorm: 9276330 1 Tablet(s) PO QD 05/01/2013 04/30/2013 Inactive gabapentin 800 mg tablet RxNorm: 690506 1 Tablet(s) PO QD 04/10/2013 10/06/2013 Inactive TAKE ONE TABLET BY MOUTH EVERY DAY metformin ER 500 mg tablet,extended release 24 hr RxNorm: 86 0977 1 Tablet(s) PO QD 04/10/2013 10/06/2013 Inactive TAKE ONE TABLET BY MOUTH EVERY DAY Premarin 0.9 mg tablet RxNorm: 030224 1 Tablet(s) PO QD 04/10/2013 Inactive TAKE ONE TABLET BY MOUTH EVERY DAY Symbicort 160 mcg-4.5 mcg/actuation HFA aerosol inhaler RxNo rm: 6474434 2 Puff(s) INH BID 04/10/2013 10/06/2013 Inactive INHALE 2 PUFFS O RALLY TWO TIMES A DAY Synthroid 112 mcg tablet RxNorm: 769819 1 Tablet(s) PO QD TAKE ONE TABLET BY MOUTH EVERY DAY 04/10/2013 06/18/2013 Inactive Ventolin HFA 90 mcg/actuation Aerosol Inhaler RxNorm: 744320 2 Puff(s) INH Q4H 04/10/2013 No Stop Date Active prn fentanyl 100 mcg/hr transdermal patch RxNorm: 833439 1 Unit Dos e TD QD 04/03/2013 05/02/2013 Inactive Endocet 10 mg-325 mg tablet RxNorm: 5747982 1-2 Tablet(s) PO Q4H 05/02/2013 Inactive PRN PAIN Topamax 100 mg tablet RxNorm: 105254 1 Tablet(s) PO QHS 03/13/2013 Inactive Reglan 10 mg tablet RxNorm: 167750 1 Tablet(s) PO QID b efore meals and at bedtime 03/13/2013 04/09/2015 Inactive fluoxetine 20 mg capsule RxNorm: 635241 1 Capsule(s) PO QD 02/28/20 13 05/27/2013 Inactive Ventolin HFA 90 mcg/actuation Aerosol Inhaler RxNorm: 168347 2 Puff(s) INH Q4H 02/13/2013 No Stop Date Active prn fluoxetine 40 mg capsule RxNorm: 486350 1 Capsule(s) PO QD 01/31/20 13 07/24/2013 Inactive TAKE ONE CAPSULE BY MOUTH EV JANKI MORNING Soma 350 mg tablet RxNorm: 785030 1 Tablet(s) PO TID 01/20/201302/18 Inactive TAKE ONE TABLET BY MOUTH THREE TIMES A D AY Endocet 10 mg-325 mg tablet RxNorm: 7288385 1-2 Tablet(s) PO Q4H 02/06/2013 Inactive PRN PAIN MS Contin 200 mg tablet,extended release RxNorm: 522425 1 Table t(s) PO BID 01/18/2013 02/06/2013 Inactive Ventolin HFA 90 mcg/actuation Aerosol Inhaler RxNorm: 920004 2 Puff(s) INH Q4H 01/04/2013 No Stop Date Active prn Spiriva with HandiHaler 18 mcg & inhalation capsules RxNorm: 788717 1 Capsule(s) INH QD 12/29/2012 06/25/2013 Inactive INHALE CONTENTS OF 1 CAPSULE(S) WITH HANDIHALER ONCE DAILY Spiriva with HandiHaler 18 mcg & inhalation capsules RxNorm: 096559 1 Capsule(s) INH QD 12/26/2012 12/28/2012 Inactive INHALE CONTENTS OF 1 CAPSULE(S) WITH HANDIHALER ONCE DAILY Synthroid 112 mcg tablet RxNorm: 239946 Tablet(s) PO TA KE ONE TABLET BY MOUTH EVERY DAY 12/26/2012 04/09/2013 Inactive Endocet 10 mg-325 mg tablet RxNorm: 5844802 1-2 Tablet(s) PO Q4H 01/17/2013 Inactive PRN PAIN MS Contin 200 mg tablet,extended release RxNorm: 824022 1 Table t(s) PO BID 12/21/2012 01/17/2013 Inactive fluoxetine 20 mg capsule RxNorm: 000803 1 Capsule(s) PO QD 12/06/19 13 02/26/2013 Inactive Synthroid 112 mcg tablet RxNorm: 338818 1 Tablet(s) PO QD 12/06/2012 02/12/2019 Inactive TAKE ONE TABLET BY MOUTH EVERY DAY Ventolin HFA 90 mcg/actuation Aerosol Inhaler RxNorm: 417447 2 Puff(s) INH Q4H 12/06/2012 No Stop Date Active prn Reglan 10 mg tablet RxNorm: 475565 1 Tablet(s) PO QID b efore meals and at bedtime 11/24/2012 03/12/2013 Inactive Topamax 100 mg tablet RxNorm: 145255 1 Tablet(s) PO QHS 11/16/2012 Inactive Ventolin HFA 90 mcg/actuation Aerosol Inhaler RxNorm: 539424 2 Puff(s) INH Q4H 11/09/2012 No Stop Date Active prn gabapentin 800 mg tablet RxNorm: 944738 1 Tablet(s) PO QD 10/27/2012 04/09/2013 Inactive TAKE ONE TABLET BY MOUTH EVERY DAY metformin ER 500 mg tablet,extended release 24 hr RxNorm: 86 0977 1 Tablet(s) PO QD 10/27/2012 04/09/2013 Inactive TAKE ONE TABLET BY MOUTH EVERY DAY Symbicort 160 mcg-4.5 mcg/actuation HFA Aerosol Inhaler RxNo rm: 5542477 2 Puff(s) INH BID 10/27/2012 04/09/2013 Inactive INHALE 2 PUFFS O RALLY TWO TIMES A DAY Premarin 0.9 mg tablet RxNorm: 515880 1 Tablet(s) PO QD 10/27/2012 Inactive TAKE ONE TABLET BY MOUTH EVERY DAY Endocet 10 mg-325 mg tablet RxNorm: 8816766 1-2 Tablet(s) PO Q4H 11/24/2012 Inactive PRN PAIN MS Contin 200 mg tablet,extended release RxNorm: 793811 1 Table t(s) PO BID 10/26/2012 11/24/2012 Inactive Soma 350 mg tablet RxNorm: 413843 1 Tablet(s) PO TID 10/04/201211/02 Inactive TAKE ONE TABLET BY MOUTH THREE TIMES A D AY Ventolin HFA 90 mcg/actuation Aerosol Inhaler RxNorm: 125095 2 Puff(s) INH Q4H 10/03/2012 No Stop Date Active prn Daliresp 500 mcg tablet RxNorm: 0039267 1 Tablet(s) PO QD 09/28/2012 09/27/2012 Inactive Daliresp 500 mcg tablet RxNorm: 5503728 1 Tablet(s) PO QD 09/28/2012 04/25/2013 Inactive fluoxetine 20 mg capsule RxNorm: 619540 1 Capsule(s) PO QD 09/05/2012/06/2012 Inactive Topamax 50 mg tablet RxNorm: 346808 Tablet(s) PO for 1w k then 1 po q HS for 1wk then 2 po q HS 08/29/2012 09/27/2012 Inactive TAKE 1/2 TABLET BY MOUTH AT BEDTIME FOR 1 WEEK, THEN 1 TABLET AT BEDTIME FOR 1 WEEK, THEN 2 TABLETS AT BEDTIME Topamax 100 mg tablet RxNorm: 247001 1 Tablet(s) PO QHS 08/29/2012 Inactive Ventolin HFA 90 mcg/actuation Aerosol Inhaler RxNorm: 856861 2 Puff(s) INH Q4H 08/19/2012 No Stop Date Active prn Ventolin HFA 90 mcg/actuation Aerosol Inhaler RxNorm: 459147 2 Puff(s) INH Q4H 08/15/2012 No Stop Date Active prn Synthroid 112 mcg tablet RxNorm: 134539 1 Tablet(s) PO QD 08/10/2012 11/07/2012 Inactive TAKE ONE TABLET BY MOUTH EVERY DAY Synthroid 112 mcg tablet RxNorm: 155245 1 Tablet(s) PO QD 08/01/2012 08/09/2012 Inactive TAKE ONE TABLET BY MOUTH EVERY DAY Reglan 10 mg tablet RxNorm: 647703 1 Tablet(s) PO QID b efore meals and at bedtime 08/01/2012 11/23/2012 Inactive fluoxetine 40 mg capsule RxNorm: 704263 1 Capsule(s) PO QD 08/01/20 12 01/27/2013 Inactive TAKE ONE CAPSULE BY MOUTH EV JANKI MORNING Ventolin HFA 90 mcg/actuation Aerosol Inhaler RxNorm: 054603 2 Puff(s) INH Q4H 08/01/2012 No Stop Date Active prn Soma 350 mg tablet RxNorm: 954176 1 Tablet(s) PO TID 07/20/201208/18 Inactive TAKE ONE TABLET BY MOUTH THREE TIMES A D AY Spiriva with HandiHaler 18 mcg & inhalation capsules RxNorm: 828877 1 Capsule(s) INH 07/01/2012 12/25/2012 Inactive INHALE CONTENTS OF 1 CAPSULE(S) WITH HANDIHALER ONCE DAILY Zithromax 250 mg Tab RxNorm: 291646 2 Tablet(s) PO QD 06/28/201206/22 Inactive MS Contin 200 mg tablet,extended release RxNorm: 398825 1 Table t(s) PO BID 06/28/2012 07/27/2012 Inactive Endocet 10 mg-325 mg tablet RxNorm: 8906006 1-2 Tablet(s) PO Q4H 07/27/2012 Inactive PRN PAIN Topamax 100 mg tablet RxNorm: 513842 1 Tablet(s) PO QHS 06/28/2012 Inactive 16.2 mg-0.1037 mg-0.0194 mg tablet RxNorm: 8868966 Tablet(s) PO PRN for gas and cramping 06/08/2012 08/23/2013 Inactive TAKE TWO TABLET S BY MOUTH THREE TIMES A DAY NEEDED FOR GAS AND CRAMPING Ventolin HFA 90 mcg/actuation Aerosol Inhaler RxNorm: 458533 2 Puff(s) INH Q4H 05/23/2012 No Stop Date Active prn Ventolin HFA 90 mcg/actuation Aerosol Inhaler RxNorm: 208995 2 Puff(s) INH Q4H 05/11/2012 No Stop Date Active prn Synthroid 112 mcg tablet RxNorm: 753849 1 Tablet(s) PO QD 05/09/2012 07/31/2012 Inactive TAKE ONE TABLET BY MOUTH EVERY DAY gabapentin 800 mg tablet RxNorm: 557333 1 Tablet(s) PO QD 05/09/2012 10/26/2012 Inactive TAKE ONE TABLET BY MOUTH EVERY DAY fluoxetine 40 mg capsule RxNorm: 457620 1 Capsule(s) PO QD 05/09/2007/31/2012 Inactive TAKE ONE CAPSULE BY MOUTH EV JANKI MORNING metformin ER 500 mg tablet,extended release 24 hr RxNorm: 86 0977 1 Tablet(s) PO QD 05/09/2012 10/26/2012 Inactive TAKE ONE TABLET BY MOUTH EVERY DAY Premarin 0.9 mg tablet RxNorm: 086323 1 Tablet(s) PO QD 05/09/2012 Inactive TAKE ONE TABLET BY MOUTH EVERY DAY Symbicort 160 mcg-4.5 mcg/actuation HFA Aerosol Inhaler RxNo rm: 6899540 2 Puff(s) INH BID 05/09/2012 10/26/2012 Inactive INHALE 2 PUFFS O RALLY TWO TIMES A DAY Endocet 10 mg-325 mg Tab RxNorm: 2673064 1-2 Tablet(s) PO Q4H 04/2705/26/2012 Inactive PRN PAIN MS Contin 200 mg Tab RxNorm: 578684 1 Tablet(s) PO BID 04/26/201202/2012 Inactive Ventolin HFA 90 mcg/actuation Aerosol Inhaler RxNorm: 035725 2 Puff(s) INH Q4H 04/25/2012 05/10/2012 Inactive prn Soma 350 mg tablet RxNorm: 535991 2 Tablet(s) PO TID 04/19/201207/19 Inactive TAKE ONE TABLET BY MOUTH THREE TIMES A D AY Ventolin HFA 90 mcg/actuation Aerosol Inhaler RxNorm: 044689 2 Puff(s) INH Q4H 04/12/2012 04/24/2012 Inactive prn Reglan 10 mg tablet RxNorm: 801953 1 Tablet(s) PO QID b efore meals and at bedtime 04/11/2012 07/31/2012 Inactive MS Contin 200 mg Tab RxNorm: 845547 1 Tablet(s) PO BID 03/30/201202/2012 Inactive Endocet 10 mg-325 mg Tab RxNorm: 8481815 1-2 Tablet(s) PO Q4H 03/3004/26/2012 Inactive PRN PAIN MS Contin 200 mg Tab RxNorm: 294764 1 Tablet(s) PO BID 03/02/201206/2012 Inactive Endocet 10 mg-325 mg Tab RxNorm: 1224451 1-2 Tablet(s) PO Q4H 03/0203/29/2012 Inactive PRN PAIN Daliresp 500 mcg tablet RxNorm: 5632355 1 Tablet(s) PO QD 03/01/2012 09/28/2012 Inactive MS Contin 200 mg Tab RxNorm: 762618 1 Tablet(s) PO BID 02/02/201208/2012 Inactive Endocet 10 mg-325 mg Tab RxNorm: 5208653 1-2 Tablet(s) PO Q4H 02/0103/01/2012 Inactive PRN PAIN fluoxetine 40 mg capsule RxNorm: 234377 1 Capsule(s) PO QD 02/02/2008/01/2012 Inactive TAKE ONE CAPSULE BY MOUTH EV JANKI MORNING Synthroid 112 mcg Tab RxNorm: 481319 1 Tablet(s) PO QD 01/18/2012 Inactive TAKE ONE TABLET BY MOUTH EVERY DAY lactulose 10 gram/15 mL oral solution RxNorm: 244152 [address]s) PO QD 01/18/2012 No Stop Date Active TAKE 1 TABLESPOON BY MOUTH ONCE DAILY Ventolin HFA 90 mcg/actuation Aerosol Inhaler RxNorm: 722817 2 Puff(s) INH Q4H 01/18/2012 04/11/2012 Inactive prn MS Contin 200 mg Tab RxNorm: 563926 1 Tablet(s) PO BID 01/05/201210/2012 Inactive Endocet 10 mg-325 mg Tab RxNorm: 0035320 1-2 Tablet(s) PO Q4H 01/0502/01/2012 Inactive PRN PAIN ProAir HFA 90 mcg/Actuation Aerosol Inhaler RxNorm: 976505 2 Pu ff(s) INH Q4H 12/21/2011 No Stop Date Active prn for wheezing or shortness of breath Spiriva with HandiHaler 18 mcg & inhalation Caps RxNorm: 580 261 1 Capsule(s) INH 12/21/2011 06/30/2012 Inactive INHALE CONTENTS OF 1 CAPSULE(S) WITH HANDIHALER ONCE DAILY Reglan 10 mg Tab RxNorm: 437811 1 Tablet(s) PO QID before meals and at bedtime 12/21/2011 04/10/2012 Inactive Synthroid 112 mcg Tab RxNorm: 886906 1 Tablet(s) PO QD 12/21/2011 Inactive TAKE ONE TABLET BY MOUTH EVERY DAY Endocet 10 mg-325 mg Tab RxNorm: 6977599 1-2 Tablet(s) PO Q4H 11/2512/24/2011 Inactive PRN PAIN MS Contin 200 mg Tab RxNorm: 789631 1 Tablet(s) PO BID 11/25/201112/2011 Inactive lactulose 10 gram/15 mL Oral Soln RxNorm: 035076 Milliliter(s) PO 1 No Stop Date Active TAKE 1 TABLESPOON BY MOUTH O NCE DAILY lactulose 10 gram/15 mL Oral Soln RxNorm: 109767 Milliliter(s) PO 1 12/12/2010 11/20/2011 Inactive TAKE 1 TABLESPOON BY MOUTH O NCE DAILY Premarin 0.9 mg Tab RxNorm: 404590 1 Tablet(s) PO QD 10/12/201105/08 Inactive TAKE ONE TABLET BY MOUTH EVERY DAY fluoxetine 20 mg capsule RxNorm: 889088 1 Capsule(s) PO QD 10/12/2009/05/2012 Inactive TAKE ONE CAPSULE BY MOUTH EV JANKI DAY Synthroid 112 mcg Tab RxNorm: 990883 1 Tablet(s) PO QD 10/12/2011 Inactive TAKE ONE TABLET BY MOUTH EVERY DAY metformin ER 500 mg 24 hr Tab RxNorm: 002814 1 Tablet(s) PO QD 09/2311/10/2011 Inactive TAKE ONE TABLET BY MOUTH GLYNN RY DAY Synthroid 112 mcg Tab RxNorm: 928307 1 Tablet(s) PO QD 10/12/2011 Inactive TAKE ONE TABLET BY MOUTH EVERY DAY metformin ER 500 mg 24 hr Tab RxNorm: 349253 1 Tablet(s) PO QD 09/2310/11/2011 Inactive TAKE ONE TABLET BY MOUTH GLYNN RY DAY Prevacid 30 mg Cap RxNorm: 160884 Capsule(s) PO 10/12/2011 01/25/2012 Inactive TAKE ONE CAPSULE BY MOUTH EVERY DAY Symbicort 160 mcg-4.5 mcg/actuation HFA Aerosol Inhaler RxNo rm: 6765964 2 Puff(s) INH BID 10/12/2011 05/08/2012 Inactive INHALE 2 PUFFS O RALLY TWO TIMES A DAY gabapentin 800 mg Tab RxNorm: 716670 1 Tablet(s) PO QD 10/12/2011 Inactive TAKE ONE TABLET BY MOUTH EVERY DAY MS Contin 200 mg Tab RxNorm: 300962 1 Tablet(s) PO BID 09/23/201111/2010 Inactive Endocet 10 mg-325 mg Tab RxNorm: 3490498 1-2 Tablet(s) PO Q4H 09/2310/22/2011 Inactive PRN PAIN Endocet 10 mg-325 mg Tab RxNorm: 3725199 1-2 Tablet(s) PO Q4H 08/2109/19/2011 Inactive PRN PAIN MS Contin 200 mg Tab RxNorm: 226664 1 Tablet(s) PO BID 08/21/2011 Inactive Diflucan 100 mg Tab RxNorm: 594009 1 Tablet(s) PO QD 08/10/201108/16 Inactive cefdinir 300 mg Cap RxNorm: 428803 2 Capsule(s) PO QD 08/10/201107/24 Inactive Reglan 10 mg Tab RxNorm: 850969 1 Tablet(s) PO AC & HS 07/15/2011 Inactive Endocet 10 mg-325 mg Tab RxNorm: 4915127 1-2 Tablet(s) PO Q4H 07/1508/13/2011 Inactive PRN PAIN One Touch Ultra Test strips RxNorm: Miscellaneous BID 06/11/2011 1 01/16/2014 Inactive TEST TWO TIMES A DAY lactulose 10 gram/15 mL Oral Soln RxNorm: 102901 Milliliter(s) PO 0 06/10/2011 10/11/2011 Inactive TAKE 1 TABLESPOON BY MOUTH O NCE DAILY Chantix Continuing Month Aníbal 1 mg Tab RxNorm: 483800 Tablet(s) PO 0 06/10/2011 11/02/2011 Inactive TAKE DIRECTED - PER [employer] GE INSTRUCTIONS fluoxetine 40 mg Cap RxNorm: 429997 Capsule(s) PO 06/10/2011 02/02/20 12 Inactive TAKE ONE CAPSULE BY MOUTH EVERY MORNING Chantix Continuing Month Aníbal 1 mg Tab RxNorm: 222147 Ta blet(s) PO TAKE DIRECTED - PER PACKAGE INSTRUCTIONS 05/13/2011 06/09/2011 Inactive Soma 350 mg Tab RxNorm: 829840 Tablet(s) PO TAKE ON E TABLET BY MOUTH THREE TIMES A DAY 05/13/2011 04/18/2012 Inactive Chantix Continuing Month Aníbal 1 mg Tab RxNorm: 169097 Ta blet(s) PO as directed per package instructions. 04/22/2011 05/12/2011 Inactive Symbicort 160 mcg-4.5 mcg/Actuation HFA Aerosol Inhaler RxNo rm: 5351099 HFA Aerosol Inhaler INH INHALE 2 PUFFS ORALLY TWO TIMES A DAY 04/13/2011 Inactive Synthroid 112 mcg Tab RxNorm: 452782 Tablet(s) PO TAKE ONE TABLET BY MOUTH EVERY DAY 04/13/2011 10/12/2011 Inactive Premarin 0.9 mg Tab RxNorm: 078294 Tablet(s) PO TAKE ON E TABLET BY MOUTH EVERY DAY 04/13/2011 10/12/2011 Inactive gabapentin 800 mg Tab RxNorm: 148989 Tablet(s) PO TAKE ONE TABLET BY MOUTH EVERY DAY 04/13/2011 10/12/2011 Inactive Prevacid 30 mg Cap RxNorm: 830872 1 Capsule(s) PO QD 04/13/201110/11 Inactive Spiriva with HandiHaler 18 mcg & inhalation Caps RxNorm: 580 261 Capsule(s) INH INHALE CONTENTS OF 1 CAPSULE(S) WITH HANDIHALER ONCE DAILY 04/13/2011 12/21/2011 Inactive metformin ER 500 mg 24 hr Tab RxNorm: 274110 Tablet(s) PO TAKE ONE TABLET BY MOUTH EVERY DAY 04/13/2011 10/12/2011 Inactive Soma 350 mg Tab RxNorm: 698217 1 Tablet(s) PO QID 03/30/2011 02/13/20 19 Inactive fluoxetine 20 mg Cap RxNorm: 741559 Capsule(s) PO TAKE ONE CAPSULE BY MOUTH EVERY DAY 03/25/2011 10/12/2011 Inactive cefdinir 300 mg Cap RxNorm: 164036 2 Capsule(s) PO QD 03/19/2011 0505/2011 Inactive 16.2 mg-0.1037 mg-0.0194 mg Tab RxNorm: 2690511 2 Tablet(s) PO TID PRN for gas and cramping 03/16/2011 07/13/2011 Inactive Soma 350 mg Tab RxNorm: 644314 2 Tablet(s) PO TID 03/16/2011 03/29/20 11 Inactive Chantix Starting Month Aníbal 0.5 mg (11)-1 mg (3x14) Tab s in a Dose Pack RxNorm: 431824 Tablet(s) PO as directed 03/02/2011 No Stop Date Active diazepam 10 mg Tab RxNorm: 074622 1 Tablet(s) PO BID 02/10/201101/19 Inactive Zofran 4 mg tablet RxNorm: 601625 1 Tablet(s) PO Q4H prn nausea 02/16/2011 Inactive Diflucan 100 mg Tab RxNorm: 675547 1 Tablet(s) PO QD 01/18/201101/24 Inactive Premarin 0.625 mg/g Vaginal Cream RxNorm: 184140 VAG In sert 1gm vaginally at bedtime 3 times weekly 01/18/2011 02/12/2019 Inactive loratadine 10 mg Tab RxNorm: 7322843 1 Tablet(s) PO QD 12/17/201003/2012 Inactive Spiriva with HandiHaler 18 mcg & inhalation Caps RxNorm: 580 261 1 Capsule(s) INH QD 12/17/2010 04/12/2011 Inactive Diflucan 100 mg Tab RxNorm: 068834 1 Tablet(s) PO QD 12/17/201012/23 Inactive diazepam 10 mg Tab RxNorm: 553278 1 Tablet(s) PO BID and PRN 201002/12/2019 Inactive One Touch Ultra Test Strips RxNorm: InVt BID Zainab t blood sugar at least twice daily. 11/11/2010 06/11/2011 Inactive fluoxetine 40 mg Cap RxNorm: 249978 1 Capsule(s) PO QAM 11/11/2010 Inactive diazepam 10 mg Tab RxNorm: 495275 1 Tablet(s) PO BID and PRN 200911/12/2010 Inactive Bactrim DS 800 mg-160 mg Tab RxNorm: 523469 1 Tablet(s) PO BID 09/2210/15/2010 Inactive fluoxetine 20 mg Cap RxNorm: 364342 1 Capsule(s) PO QD 10/02/201008/2011 Inactive Bactrim DS 800 mg-160 mg Tab RxNorm: 390062 1 Tablet(s) PO BID 01/201010/03/2010 Inactive Zofran 4 mg Tab RxNorm: 895192 1 Tablet(s) PO Q4H prn nausea 200910/16/2010 Inactive 16.2 mg-0.1037 mg-0.0194 mg Tab RxNorm: 3072690 2 Tablet(s) PO TID PRN for gas and cramping 09/17/2010 10/21/2010 Inactive Gabapentin 800 mg Tab RxNorm: 293282 1 Tablet(s) PO QD 09/16/2010 Inactive ProAir HFA 90 mcg/Actuation Aerosol Inhaler RxNorm: 110275 2 Puff(s) INH Q4H prn shortness of breath 09/15/2010 12/13/2010 Inactive gabapentin 800 mg Tab RxNorm: 682049 1 Tablet(s) PO QD 09/15/2010 Inactive Prevacid 30 mg Cap RxNorm: 124171 1 Capsule(s) PO QD 09/15/201004/12 Inactive loratadine 10 mg Tab RxNorm: 3803022 1 Tablet(s) PO QD 09/15/2010 Inactive Premarin 0.9 mg Tab RxNorm: 598805 1 Tablet(s) PO QD 09/15/201004/12 Inactive Synthroid 112 mcg Tab RxNorm: 342366 1 Tablet(s) PO QD 09/15/2010 Inactive metformin ER 500 mg 24 hr Tab RxNorm: 081197 1 Tablet(s) PO QD 08/2304/12/2011 Inactive Symbicort 160 mcg-4.5 mcg/Actuation Inhalation HFA Aer osol Inhaler RxNorm: 6007654 2 Puff(s) INH BID 09/15/2010 04/12/2011 Inactive diazepam 10 mg Tab RxNorm: 412365 1 Tablet(s) PO BID and PRN 200910/13/2010 Inactive Phentermine 37.5 mg Cap RxNorm: 907046 1 Capsule(s) PO QD 09/02/2010 11/02/2011 Inactive ProAir HFA 90 mcg/Actuation Aerosol Inhaler RxNorm: 882892 2 Puff(s) INH Q4H prn shortness of breath 08/07/2010 No Stop Date Active Premarin 0.9 mg Tab RxNorm: 601632 1 Tablet(s) PO QD 08/07/201009/14 Inactive Loratadine 10 mg Tab RxNorm: 7109896 1 Tablet(s) PO QD 08/07/2010 Inactive Lactulose 10 gram/15 mL Oral Soln RxNorm: 190377 1 Unit Dose PO QD 08/07/2010 02/12/2019 Inactive Zofran 4 mg Tab RxNorm: 156148 1 Tablet(s) PO Q4H prn nausea 2009 No Stop Date Active Gabapentin 800 mg Tab RxNorm: 528683 1 Tablet(s) PO QD 08/07/2010 Inactive Synthroid 112 mcg Tab RxNorm: 223673 1 Tablet(s) PO QD 08/07/2010 Inactive Metformin ER 500 mg 24 hr Tab RxNorm: 313173 1 Tablet(s) PO QD 07/2309/14/2010 Inactive Vitamin D 1,000 unit Tab RxNorm: 902938 1 Tablet(s) PO TID 08/07/2002/12/2019 Inactive Symbicort 160 mcg-4.5 mcg/Actuation Inhalation HFA Aer osol Inhaler RxNorm: 4409982 2 Puff(s) INH BID 08/07/2010 09/14/2010 Inactive Prevacid 30 mg Cap RxNorm: 798288 1 Capsule(s) PO QD 08/07/201009/14 Inactive Metformin ER 500 mg 24 hr Tab RxNorm: 584103 1 Tablet(s) PO QD 06/2308/06/2010 Inactive Vitamin D 1,000 unit Tab RxNorm: 494632 1 Tablet(s) PO TID 07/14/2008/06/2010 Inactive Synthroid 112 mcg Tab RxNorm: 118804 1 Tablet(s) PO QD 07/14/2010 Inactive Lactulose 10 gram/15 mL Oral Soln RxNorm: 193228 1 Unit Dose PO QD 07/14/2010 08/06/2010 Inactive Levaquin 500 mg Tab RxNorm: 442698 1 Tablet(s) PO QD 07/14/201007/27 Inactive Premarin 0.9 mg Tab RxNorm: 501422 1 Tablet(s) PO QD 07/14/201008/06 Inactive ProAir HFA 90 mcg/Actuation Aerosol Inhaler RxNorm: 066815 2 Puff(s) INH Q4H prn shortness of breath 07/14/2010 No Stop Date Active Prevacid 30 mg Cap RxNorm: 349434 1 Capsule(s) PO QD 07/14/201008/06 Inactive Zofran 4 mg Tab RxNorm: 204361 1 Tablet(s) PO Q4H prn nausea 2009 No Stop Date Active Symbicort 160 mcg-4.5 mcg/Actuation Inhalation HFA Aer osol Inhaler RxNorm: 4755088 2 Puff(s) INH BID 07/14/2010 08/06/2010 Inactive Loratadine 10 mg Tab RxNorm: 1163368 1 Tablet(s) PO QD 07/14/2010 Inactive Gabapentin 800 mg Tab RxNorm: 171137 1 Tablet(s) PO QD 07/14/2010 Inactive Metformin ER 500 mg 24 hr Tab RxNorm: 292177 1 Tablet(s) PO 010 07/13/2010 Inactive Diazepam 10 mg Tab RxNorm: 336380 1 Tablet(s) PO BID and PRN 200909/06/2010 Inactive Premarin 0.9 mg Tab RxNorm: 403352 1 Tablet(s) PO QD 06/09/201007/13 Inactive Zofran 4 mg Tab RxNorm: 452531 1 Tablet(s) PO Q4H prn nausea 2009 No Stop Date Active ProAir HFA 90 mcg/Actuation Aerosol Inhaler RxNorm: 650223 2 Puff(s) INH Q4H prn shortness of breath 06/09/2010 No Stop Date Active Gabapentin 800 mg Tab RxNorm: 499384 1 Tablet(s) PO QD 06/09/2010 Inactive Loratadine 10 mg Tab RxNorm: 0625907 1 Tablet(s) PO QD 06/09/2010 Inactive Lactulose 10 gram/15 mL Oral Soln RxNorm: 517213 1 Unit Dose PO QD 06/09/2010 07/13/2010 Inactive Prevacid 30 mg Cap RxNorm: 674386 1 Capsule(s) PO QD 06/09/201007/13 Inactive Synthroid 112 mcg Tab RxNorm: 662058 1 Tablet(s) PO QD 06/09/2010 Inactive Symbicort 160 mcg-4.5 mcg/Actuation Inhalation HFA Aer osol Inhaler RxNorm: 2944940 2 Puff(s) INH BID 06/09/2010 07/13/2010 Inactive Omnicef 300 mg Cap RxNorm: 698266 2 Capsule(s) PO QD 05/07/201005/20 Inactive Metformin 500 mg Tab RxNorm: 108785 1 Tablet(s) PO QD 05/06/201005/22 Inactive ProAir HFA 90 mcg/Actuation Aerosol Inhaler RxNorm: 762451 2 Puff(s) INH Q4H prn shortness of breath 05/06/2010 No Stop Date Active lactulose 10 gram/15 mL Oral Soln RxNorm: 038157 1 Unit Dose PO QD 05/06/2010 06/10/2011 Inactive Loratadine 10 mg Tab RxNorm: 7718145 1 Tablet(s) PO QD 05/06/2010 Inactive Synthroid 112 mcg Tab RxNorm: 011054 1 Tablet(s) PO QD 05/06/2010 Inactive Symbicort 160 mcg-4.5 mcg/Actuation Inhalation HFA Aer osol Inhaler RxNorm: 0381123 2 Puff(s) INH BID 05/06/2010 06/08/2010 Inactive Gabapentin 800 mg Tab RxNorm: 616894 1 Tablet(s) PO QD 05/06/2010 Inactive 16.2 mg-0.1037 mg-0.0194 mg Tab RxNorm: 2640616 2 Tablet(s) PO TID PRN for gas and cramping 05/06/2010 05/12/2010 Inactive Zofran 4 mg Tab RxNorm: 352442 1 Tablet(s) PO Q4H prn nausea 200904/13/2010 Inactive MS Contin 60 mg Tab RxNorm: 903913 3 Tablet(s) PO BID 04/09/201004/22 Inactive Soma 350 mg Tab RxNorm: 951031 2 Tablet(s) PO TID 04/09/2010 05/08/20 10 Inactive Symbicort 160 mcg-4.5 mcg/Actuation Inhalation HFA Aer osol Inhaler RxNorm: 2047052 2 Puff(s) INH BID 04/08/2010 05/05/2010 Inactive Doxycycline 100 mg Cap RxNorm: 9899470 1 Capsule(s) PO BID 04/08/20 10 04/17/2010 Inactive Triamterene-Hydrochlorothiazide 37.5 mg-25 mg Cap RxNorm: 19 8316 1 Capsule(s) PO QAM 04/08/2010 09/04/2010 Inactive fluoxetine 40 mg Cap RxNorm: 785533 1 Capsule(s) PO QAM 04/08/2010 Inactive Morphine SR 120 mg multiphase 24 hr Cap RxNorm: 680459 1 Capsul e(s) PO 03/11/2010 04/07/2010 Inactive Endocet 10 mg-325 mg Tab RxNorm: 7291800 1-2 Tablet(s) PO Q4H [place] N PAIN 03/11/2010 04/09/2010 Inactive Savella 100 mg Tab RxNorm: 022912 1 Tablet(s) PO BID 03/10/201004/09 Inactive Soma 350 mg Tab RxNorm: 223269 1 Tablet(s) PO TID prn spasm 010 04/09/2010 Inactive Savella 100 mg Tab RxNorm: 493617 1 Tablet(s) PO BID 02/03/201004/09 Inactive Aspirin 81 mg Tab RxNorm: 533480 1 Tablet(s) PO QD No Start Date Active Zyrtec 10 mg Tab RxNorm: 8148141 1 Tablet(s) PO QD No Start Date Active One Touch Ultra Test Strips RxNorm: Misc test at least t wice daily. No Start Date Active coenzyme Q10 200 mg capsule RxNorm: 335777 1 Capsule(s) PO QD No Star t Date Active One Touch Ultra Test Strips RxNorm: InVt BID Zainab t blood sugar at least twice daily. No Start Date 11/10/2010 Inactive Gabapentin 800 mg Tab RxNorm: 476704 1 Tablet(s) PO QD No Start Date 05/05/2010 Inactive Abilify 5 mg tablet RxNorm: 115761 1 Tablet(s) PO QD No Start Date Inactive Chantix 1 mg Tab RxNorm: 904607 1 Tablet(s) PO BID No Start Date 10/22 Inactive Ozempic 0.25 mg or 0.5 mg (2 mg/1.5 mL) subcutaneous p en injector RxNorm: 5575551 .25 Milligram(s) SQ QW No Start Date 07/04/2019 Inactive lancets 28 gauge RxNorm: Miscellaneous As needed for blo od glucose sticks No Start Date 08/23/2013 Inactive potassium chloride ER 20 mEq tablet,extended release RxNorm: 251114 2 Tablet(s) PO QD No Start Date 09/26/2018 Inactive Ventolin HFA 90 mcg/actuation Aerosol Inhaler RxNorm: 366152 2 Puff(s) INH Q4H prn No Start Date 01/17/2012 Inactive potassium chloride ER 20 mEq tablet,extended release RxNorm: 567801 2 Tablet(s) PO QD No Start Date 10/19/2018 Inactive Januvia 100 mg tablet RxNorm: 869064 1 Tablet(s) PO QD No Start Date 09/10/2015 Inactive Medrol (Aníbal) 4 mg Tabs in a Dose Pack RxNorm: 765821 Tablet(s) PO N o Start Date 08/09/2011 Inactive as directed Zithromax Z-Aníbal 250 mg Tab RxNorm: 336473 Tablet(s) PO No Start Date 01/25/2012 Inactive as directed vitamin B6-vitamin E-magnesium tablet RxNorm: 1 Tablet(s ) PO QHS with INH No Start Date 03/30/2018 Inactive prednisone 20 mg Tab RxNorm: 523354 1 Tablet(s) PO TID for 1wk then 1 po BID for 1wk No Start Date 01/25/2012 Inactive furosemide 40 mg tablet RxNorm: 514821 1 Tablet(s) PO QAM No Start Date 10/09/2018 Inactive Vitamin D3 1000 units Capsule RxNorm: 1 Capsule(s) PO TID No S tart Date 03/19/2015 Inactive Zofran 4 mg Tab RxNorm: 736497 1 Tablet(s) PO Q4H prn nausea No Sta rt Date 04/13/2010 Inactive Premarin 0.625 mg/g Vaginal Cream RxNorm: 818009 1 Gram (s) VAG QHS 3 times a week No Start Date 09/22/2017 Inactive oxycodone 10 mg tablet RxNorm: 0873749 1-2 Tablet(s) PO QID as n eeded for pain No Start Date 11/04/2015 Inactive Nicoderm CQ 21 mg/24 hr daily Patch RxNorm: 683095 1 Applicatio n TD QD No Start Date 08/05/2015 Inactive Topamax 50 mg tablet RxNorm: 800487 1/2 Tablet(s) PO QH S for 1wk then 1 po q HS for 1wk then 2 po q HS No Start Date 06/27/2012 Inactive Chantix Starting Month Aníbal 0.5 mg (11)-1 mg (3x14) Tab s in a Dose Pack RxNorm: 207059 Tablet(s) PO as directed No Start Date 03/01/2011 Inactive Trulicity 0.75 mg/0.5 mL subcutaneous pen injector RxNorm: 1 709034 Milliliter(s) SQ No Start Date 07/04/2019 Inactive Medrol (Aníbal) 4 mg Tabs in a Dose Pack RxNorm: 030511 Tablet(s) PO N o Start Date 01/25/2012 Inactive as directed Duragesic 100 mcg/hr Transderm Patch RxNorm: 441828 2 A pplication TD Q48H for pain No Start Date 09/05/2013 Inactive Premarin 0.9 mg Tab RxNorm: 421687 1 Tablet(s) PO QD No Start Date Inactive Zithromax Z-Aníbal 250 mg Tab RxNorm: 536868 Tablet(s) PO as direc chinmay No Start Date 01/25/2012 Inactive ondansetron 8 mg disintegrating tablet RxNorm: 410411 1 Tablet(s) PO Q6H as needed No Start Date 10/10/2018 Inactive oxycodone 15 mg tablet RxNorm: 9932960 1 Tablet(s) PO QID as nee ded for pain No Start Date 03/05/2019 Inactive ProAir HFA 90 mcg/Actuation Aerosol Inhaler RxNorm: 227511 2 Puff(s) INH Q4H prn for wheezing or shortness of breath No Start Date 12/21/2011 Inactive pravastatin 40 mg tablet RxNorm: 239537 1/2 Tablet(s) PO QOD No Sta rt Date 04/09/2015 Inactive ipratropium-albuterol 0.5 mg-3 mg(2.5 mg base)/3 mL ne bulization soln RxNorm: 6684553 1 Unit Dose INH Q4H as needed No Start Date 09/09/2016 Inactive furosemide 40 mg tablet RxNorm: 847838 1 Tablet(s) PO QAM as ne eded No Start Date 09/24/2019 Inactive Vitamin D2 oral RxNorm: 4018 oral No Start Date 03/18/2015 Inacti ve pravastatin 40 mg tablet RxNorm: 403858 1/2 Tablet(s) PO QD No Star t Date 04/09/2015 Inactive ondansetron HCl 4 mg tablet RxNorm: 991082 1 Tablet(s) PO Q4H as needed for nausea and vomiting No Start Date 04/07/2016 Inactive furosemide 40 mg tablet RxNorm: 700939 2 Tablet(s) PO QAM No Start Date 09/26/2018 Inactive gabapentin 800 mg tablet RxNorm: 858210 1/2 Tablet(s) PO BID No Sta rt Date 06/21/2017 Inactive gabapentin 800 mg tablet RxNorm: 658580 1/2 Tablet(s) PO BID No Sta rt Date 07/05/2017 Inactive ProAir HFA 90 mcg/Actuation Aerosol Inhaler RxNorm: 440935 2 Puff(s) INH Q4H prn shortness of breath No Start Date 05/05/2010 Inactive scopolamine 1 mg over 3 days transdermal patch RxNorm: 28415 2 1 Application TD behind ear. Take off after three days No Start Date 10/10/2018 Inactive Metformin 500 mg Tab RxNorm: 795241 1 Tablet(s) PO QD No Start Date 0 05/05/2010 Inactive MS Contin 200 mg Tab RxNorm: 843128 1 Tablet(s) PO BID No Start Date 08/20/2011 Inactive Belladonna-Phenobarbital 48 mg tablet,extended release RxNor m: 2 Tablet(s) PO TID No Start Date 06/04/2016 Inactive Synthroid 112 mcg Tab RxNorm: 686097 1 Tablet(s) PO QD No Start Date 05/05/2010 Inactive Zegerid 40 mg-1.1 gram Cap RxNorm: 686169 1 Capsule(s) PO QD No Sta rt Date 01/25/2012 Inactive Premarin 0.625 mg/g Vaginal Cream RxNorm: 567226 VAG In sert 1gm vaginally at bedtime 3 times weekly No Start Date 01/17/2011 Inactive potassium chloride ER 20 mEq tablet,extended release RxNorm: 028149 1 Tablet(s) PO QD No Start Date 04/24/2019 Inactive methocarbamol 750 mg tablet RxNorm: 451930 2 Tablet(s) PO TID as needed for muscle spasm No Start Date 07/08/2014 Inactive Biaxin XL Aníbal 500 mg 24 hr Tab RxNorm: 668467 Tablet(s) PO as d irected No Start Date 04/24/2013 Inactive Vitamin D3 1,000 unit tablet RxNorm: 415057 3 Tablet(s) PO QD No St art Date 06/01/2017 Inactive Morphine SR 120 mg multiphase 24 hr Cap RxNorm: 109648 1 Capsul e(s) PO BID No Start Date 04/09/2010 Inactive Silvadene 1 % topical cream RxNorm: 036869 1 Application TOP BI D to burn area No Start Date 01/31/2017 Inactive Prednisone 20 mg Tab RxNorm: 106348 1 Tablet(s) PO TID for 3days then BID for 4days No Start Date 01/25/2012 Inactive gabapentin 600 mg tablet RxNorm: 922151 1 Tablet(s) PO BID No Start Date 01/21/2015 Inactive topiramate 50 mg tablet RxNorm: 769708 1 Tablet(s) PO QHS No Start Date 03/30/2018 Inactive Januvia 100 mg tablet RxNorm: 947178 1/2 Tablet(s) PO QD No Start D ate 12/25/2015 Inactive Diazepam 10 mg Tab RxNorm: 151534 1 Tablet(s) PO BID and PRN No Sta rt Date 06/08/2010 Inactive Medication Administered No Medication Administered data Immunizations Vaccine Codes Date Status Influenza CVX: 141 09/28/2012 Pneumovax Unknown 09/28/2012 Influenza (Adult) CVX: 141 09/02/2010 Results No Results data Procedures Procedure Codes Date THER/PROPH/DIAG INJ SC/IM CPT-4: 65839 07/10/2019 METHYLPREDNISOLONE INJECTION CPT-4: J2930 07/10/2019 URINALYSIS NONAUTO W/O SCOPE CPT-4: 46046 09/06/2018 URINE CULTURE/ COLONY COUNT CPT-4: 76335 09/06/2018 DRAIN/INJECT JOINT/BURSA CPT-4: 27009 04/29/2017 TRIAMCINOLONE ACET INJ NOS CPT-4: J3301 04/29/2017 DEXAMETHASONE SODIUM PHOS CPT-4: J1100 04/29/2017 INFLUENZA ASSAY W/OPTIC CPT-4: 23573 12/01/2016 RESPIRATORY CULTURE & STAIN CPT-4: 36378 07/09/2016 TB INTRADERMAL TEST CPT-4: 22095 04/21/2016 DRAIN/INJECT JOINT/BURSA CPT-4: 54725 11/07/2013 METHYLPREDNISOLONE 40 MG INJ CPT-4: J1030 11/07/2013 TRIAMCINOLONE ACET INJ NOS CPT-4: J3301 11/07/2013 DRAIN/INJECT JOINT/BURSA CPT-4: 41554 08/08/2013 METHYLPREDNISOLONE 40 MG INJ CPT-4: J1030 08/08/2013 TRIAMCINOLONE ACET INJ NOS CPT-4: J3301 08/08/2013 FLU VACCINE 3 YRS & > IM UP 64 CPT-4: 78272 2 PNEUMOCOCCAL VACC 23 ADITYA IM CPT-4: 38209 09/28/2012 IMMUNIZATION ADMIN CPT-4: 71648 09/28/2012 IMMUNIZATION ADMIN EACH ADD CPT-4: 92398 09/28/2012 FLU VACCINE 3 YRS & > IM UP 64 CPT-4: 21884 0 IMMUNIZATION ADMIN CPT-4: 66144 09/02/2010 METHYLPREDNISOLONE INJECTION CPT-4: J2930 05/07/2010 THER/PROPH/DIAG INJ SC/IM CPT-4: 84065 05/07/2010 Vital Signs Date Vital 11/29/2019 Blood [...] 1: 122/78 Code: 8480-6 BMI: 29.5 Code: 83809-4 Heart Rate 1: 76 bpm Height: 5'4" Respiratory Rate: 20 bpm SpO2: 96% Tempera ture: 37.0 (C) / 98.6 (F) Weight: 172 lbs 01/25/2019 Blood Pressure 1: 132/80 Code: 8480-6 BMI: 29.7 Code: 80506-1 Heart Rate 1: 84 bpm Height: 5'4" Respiratory Rate: 22 bpm SpO2: 98% Tempera ture: 36.9 (C) / 98.4 (F) Weight: 173 lbs 01/03/2019 Blood Pressure 1: 116/70 Code: 8480-6 BMI: 29.5 Code: 37756-2 Heart Rate 1: 92 bpm Height: 5'4" Respiratory Rate: 24 bpm SpO2: 98% Tempera ture: 37.2 (C) / 98.9 (F) Weight: 172 lbs 11/21/2018 Blood Pressure 1: 146/82 Code: 8480-6 BMI: 28.2 Code: 61209-6 Heart Rate 1: 88 bpm Height: 5'4" Respiratory Rate: 22 bpm SpO2: 97% Tempera ture: 36.9 (C) / 98.4 (F) Weight: 164 lbs 10/27/2018 Blood Pressure 1: 122/70 Code: 8480-6 BMI: 27.6 Code: 14538-4 Heart Rate 1: 88 bpm Height: 5'4" Respiratory Rate: 20 bpm SpO2: 96% Tempera ture: 36.8 (C) / 98.3 (F) Weight: 161 lbs 10/18/2018 Blood Pressure 1: 126/70 Code: 8480-6 BMI: 28.3 Code: 19699-0 Heart Rate 1: 76 bpm Height: 5'4" Respiratory Rate: 20 bpm SpO2: 95% Tempera ture: 37.0 (C) / 98.6 (F) Weight: 165 lbs 09/27/2018 Blood Pressure 1: 124/78 Code: 8480-6 BMI: 27.1 Code: 30962-3 Heart Rate 1: 88 bpm Height: 5'4" Respiratory Rate: 20 bpm SpO2: 98% Tempera ture: 36.4 (C) / 97.6 (F) Weight: 158 lbs 09/14/2018 Blood Pressure 1: 140/72 Code: 8480-6 BMI: 26.1 Code: 92467-0 Heart Rate 1: 100 bpm Height: 5'4" Respiratory Rate: 20 bpm SpO2: 97% Tempera ture: 36.9 (C) / 98.4 (F) Weight: 152 lbs 09/06/2018 Blood Pressure 1: 156/82 Code: 8480-6 BMI: 26.3 Code: 91015-3 Heart Rate 1: 100 bpm Height: 5'4" Respiratory Rate: 28 bpm SpO2: 95% Tempera ture: 37.2 (C) / 98.9 (F) Weight: 153 lbs 08/16/2018 Blood Pressure 1: 130/78 Code: 8480-6 Heart Rate 1: 87 bpm Respiratory Rate: 24 bpm SpO2: 94% Temperature: 36.9 (C) / 98.4 (F) We ight: 147 lbs 8 oz 07/07/2018 Blood Pressure 1: 116/78 Code: 8480-6 BMI: 22.7 Code: 27301-6 Heart Rate 1: 88 bpm Height: 5'4" Respiratory Rate: 22 bpm SpO2: 98% Tempera ture: 36.5 (C) / 97.7 (F) Weight: 132 lbs 05/31/2018 Blood Pressure 1: 128/78 Code: 8480-6 BMI: 22.3 Code: 68315-4 Heart Rate 1: 92 bpm Height: 5'4" Respiratory Rate: 26 bpm SpO2: 94% Tempera ture: 36.7 (C) / 98.1 (F) Weight: 130 lbs 03/31/2018 Blood Pressure 1: 136/78 Code: 8480-6 BMI: 21.5 Code: 65383-7 Heart Rate 1: 76 bpm Height: 5'4" Respiratory Rate: 24 bpm SpO2: 95% Tempera ture: 36.8 (C) / 98.3 (F) Weight: 125 lbs 01/26/2018 Blood Pressure 1: 142/64 Code: 8480-6 BMI: 20.6 Code: 36956-6 Heart Rate 1: 90 bpm Height: 5'4" Respiratory Rate: 24 bpm SpO2: 92% Tempera ture: 36.3 (C) / 97.3 (F) Weight: 120 lbs 10/26/2017 Blood Pressure 1: 124/70 Code: 8480-6 BMI: 20.3 Code: 64559-5 Heart Rate 1: 76 bpm Height: 5'4" Respiratory Rate: 22 bpm SpO2: 94% Tempera ture: 36.7 (C) / 98.1 (F) Weight: 118 lbs 09/23/2017 Blood Pressure 1: 106/70 Code: 8480-6 BMI: 19.2 Code: 02094-1 Heart Rate 1: 76 bpm Height: 5'4" Respiratory Rate: 20 bpm SpO2: 94% Tempera ture: 36.8 (C) / 98.3 (F) Weight: 112 lbs 08/12/2017 Blood Pressure 1: 116/68 Code: 8480-6 BMI: 20.1 Code: 93598-2 Heart Rate 1: 80 bpm Height: 5'4" Respiratory Rate: 22 bpm SpO2: 95% Tempera ture: 36.8 (C) / 98.2 (F) Weight: 117 lbs 07/06/2017 Blood Pressure 1: 136/78 Code: 8480-6 BMI: 20.6 Code: 03855-4 Heart Rate 1: 76 bpm Height: 5'4" Respiratory Rate: 24 bpm SpO2: 96% Tempera ture: 36.8 (C) / 98.2 (F) Weight: 120 lbs 06/02/2017 Blood Pressure 1: 112/70 Code: 8480-6 Heart Rate 1: 92 bpm Height: 5'4" Respiratory Rate: 24 bpm SpO2: 95% Temperature: 37.0 (C) / 98.6 (F) Weight: 04/29/2017 Blood Pressure 1: 94/52 Code: 8480-6 BMI: 19.6 C ode: 01522-1 Heart Rate 1: 84 bpm Height: 5'4" [...] 92/58 Code: 8480-6 BMI: 19.2 C ode: 07490-1 Heart Rate 1: 84 bpm Height: 5'4" Respiratory Rate: 26 bpm SpO2: 95% Tempera ture: 36.7 (C) / 98.0 (F) Weight: 112 lbs 12/01/2016 Blood Pressure 1: 114/70 Code: 8480-6 BMI: 19.2 Code: 75749-7 Heart Rate 1: 96 bpm Height: 5'4" Respiratory Rate: 28 bpm SpO2: 93% Tempera ture: 38.3 (C) / 101.0 (F) Weight: 112 lbs 10/27/2016 Blood Pressure 1: 126/66 Code: 8480-6 BMI: 19.6 Code: 06011-6 Heart Rate 1: 92 bpm Height: 5'4" Respiratory Rate: 28 bpm SpO2: 90% Tempera ture: 36.8 (C) / 98.3 (F) Weight: 114 lbs 09/09/2016 Blood Pressure 1: 126/74 Code: 8480-6 Heart Rate 1: 104 bpm Height: 5'4" Respiratory Rate: 32 bpm SpO2: 88% Temperature: 37 .2 (C) / 99.0 (F) 08/26/2016 Blood Pressure 1: 134/82 Code: 8480-6 BMI: 22.0 Code: 28905-3 Heart Rate 1: 84 bpm Height: 5'4" Respiratory Rate: 24 bpm SpO2: 94% Tempera ture: 36.8 (C) / 98.3 (F) Weight: 128 lbs 05/21/2016 Blood Pressure 1: 142/80 Code: 8480-6 BMI: 21.6 Code: 79592-5 Heart Rate 1: 104 bpm Height: 5'4" Respiratory Rate: 22 bpm SpO2: 93% Tempera ture: 36.0 (C) / 96.8 (F) Weight: 126 lbs 03/25/2016 Blood Pressure 1: 126/62 Code: 8480-6 Heart Rate 1: 88 bpm Respiratory Rate: 20 bpm SpO2: 92% Temperature: 36.8 (C) / 98.3 (F) We ight: 130 lbs 01/23/2016 Blood Pressure 1: 146/82 Code: 8480-6 BMI: 24.1 Code: 61515-8 Heart Rate 1: 92 bpm Height: 5'3" Respiratory Rate: 22 bpm Temperature: 37 .1 (C) / 98.8 (F) Weight: 136 lbs 12/26/2015 Blood Pressure 1: 142/78 Code: 8480-6 BMI: 24.6 Code: 66858-9 Heart Rate 1: 78 bpm Height: 5'3" Respiratory Rate: 20 bpm Temperature: 36 .7 (C) / 98.1 (F) Weight: 139 lbs 12/03/2015 Blood Pressure 1: 126/60 Code: 8480-6 BMI: 24.6 Code: 60319-9 Heart Rate 1: 100 bpm Height: 5'3" Respiratory Rate: 28 bpm Temperature: 37 .6 (C) / 99.6 (F) Weight: 139 lbs 09/10/2015 Blood Pressure 1: 124/64 Code: 8480-6 BMI: 23.7 Code: 44542-7 Heart Rate 1: 88 bpm Height: 5'3" Respiratory Rate: 24 bpm SpO2: 95% Tempera ture: 36.4 (C) / 97.6 (F) Weight: 134 lbs 08/06/2015 Blood Pressure 1: 114/76 Code: 8480-6 BMI: 23.2 Code: 48491-1 Heart Rate 1: 88 bpm Height: 5'3" Respiratory Rate: 22 bpm Temperature: 36 .6 (C) / 97.9 (F) Weight: 131 lbs 07/18/2015 Blood Pressure 1: 144/78 Code: 8480-6 BMI: 23.7 Code: 46763-8 Heart Rate 1: 84 bpm Height: 5'3" Respiratory Rate: 20 bpm Temperature: 37 .2 (C) / 99.0 (F) Weight: 134 lbs 04/10/2015 Blood Pressure 1: 110/64 Code: 8480-6 Heart Rate 1: 80 bpm Height: Respiratory Rate: 20 bpm Temperature: 37.1 (C) / 98.8 (F) Weight: 03/05/2015 Blood Pressure 1: 136/80 Code: 8480-6 BMI: 23.9 Code: 72104-6 Heart Rate 1: 76 bpm Height: 5'3" Respiratory Rate: 24 bpm Temperature: 37 .0 (C) / 98.6 (F) Weight: 135 lbs 01/30/2015 Blood Pressure 1: 142/80 Code: 8480-6 BMI: 23.0 Code: 88203-6 Heart Rate 1: 96 bpm Height: 5'3" Respiratory Rate: 22 bpm Temperature: 36 .2 (C) / 97.2 (F) Weight: 130 lbs 01/02/2015 Blood Pressure 1: 124/70 Code: 8480-6 BMI: 23.4 Code: 82731-3 Heart Rate 1: 84 bpm Height: 5'3" Respiratory Rate: 24 bpm SpO2: 95% Tempera ture: 36.9 (C) / 98.5 (F) Weight: 132 lbs 10/03/2014 Blood Pressure 1: 106/68 Code: 8480-6 BMI: 22.5 Code: 94589-7 Heart Rate 1: 88 bpm Height: 5'3" Respiratory Rate: 24 bpm Temperature: 37 .0 (C) / 98.6 (F) Weight: 127 lbs 08/27/2014 Blood Pressure 1: 124/68 Code: 8480-6 BMI: 21.1 Code: 27123-0 Heart Rate 1: 88 bpm Height: 5'3" [...] 1: 120/70 Code: 8480-6 BMI: 19.2 Code: 11450-9 Heart Rate 1: 70 bpm Height: 5'4" Respiratory Rate: 20 bpm Temperature: 36 .9 (C) / 98.4 (F) Weight: 112 lbs 06/28/2013 Blood Pressure 1: 102/68 Code: 8480-6 BMI: 19.6 Code: 60719-7 Heart Rate 1: 76 bpm Height: 5'4" Respiratory Rate: 20 bpm Temperature: 36 .8 (C) / 98.2 (F) Weight: 114 lbs 05/31/2013 Blood Pressure 1: 106/70 Code: 8480-6 BMI: 18.9 Code: 55595-5 Heart Rate 1: 100 bpm Height: 5'4" Respiratory Rate: 20 bpm Temperature: 36 .4 (C) / 97.6 (F) Weight: 110 lbs 05/03/2013 Blood Pressure 1: 126/70 Code: 8480-6 BMI: 19.1 Code: 25732-4 Heart Rate 1: 88 bpm Height: 5'4" Respiratory Rate: 20 bpm Temperature: 37 .1 (C) / 98.8 (F) Weight: 111 lbs 04/25/2013 Blood Pressure 1: 114/68 Code: 8480-6 BMI: 19.4 Code: 82139-7 Heart Rate 1: 92 bpm Height: 5'4" Respiratory Rate: 24 bpm SpO2: 96% Tempera ture: 37.7 (C) / 99.8 (F) Weight: 113 lbs 03/08/2013 Blood Pressure 1: 94/68 Code: 8480-6 BMI: 21.3 C ode: 96915-3 Heart Rate 1: 88 bpm Height: 5'4" Respiratory Rate: 24 bpm Temperature: 37 .0 (C) / 98.6 (F) Weight: 124 lbs 02/07/2013 Blood Pressure 1: 106/64 Code: 8480-6 BMI: 21.8 Code: 93467-2 Heart Rate 1: 84 bpm Height: 5'4" Respiratory Rate: 22 bpm Temperature: 36 .8 (C) / 98.2 (F) Weight: 127 lbs 01/10/2013 Blood Pressure 1: 122/68 Code: 8480-6 BMI: 21.6 Code: 63915-3 Heart Rate 1: 94 bpm Height: 5'4" SpO2: 94% Temperature: 36.7 (C) / 98.1 (F) Weight: 126 lbs 09/28/2012 Blood Pressure 1: 124/78 Code: 8480-6 BMI: 24.9 Code: 30711-2 Heart Rate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 Completed 11/03/2011 Appointment: Vika Renteria WPtel: [address] [place] [address] 08/10/2011 Patient Education: Patient Medication Summary Completed 08/10/2011 Visit Plan: Supportive care. Rest, Fluid s, Tylenol/Motrin prn fever or bodyaches. Notify if worsening symptoms. Medrol Dose Pack Smoking Cessation and recommend get rid of cat Add Reglan for stomach 07/15/2011 Appointment: Vika Renteria WPtel: [address] [place] [address] ACUTE ILLNESS 07/15/2011 Patient Education: Patient Medication Summary Completed 07/15/2011 Appointment: Vika Renteriatel: [address] [place] [address] FOLLOW UP 04/02/2011 Visit Plan: SVN with Albuterol 0.083% Q4 hrs and Q2hrs prn. Cont smoking Cessation 03/19/2011 Appointment: Vika Renteria WPtel: [address] [place] [address] ACUTE ILLNESS 03/19/2011 Patient Education: Patient Medication Summary Completed 03/19/2011 Visit Plan: Repeat Biaxin XL Cont curren t meds Repeat Chantix 01/28/2011 Appointment: Vika Renteria WPtel: [address] [place], [place] [phone] FOLLOW UP 01/28/2011 Patient Education: Patient Medication Summary Completed 01/28/2011 Patient Education: Chantix Unbranded Comp leted 01/28/2011 Appointment: Vika Renteria WPtel: [address] [place], [place] [phone] FOLLOW UP 01/14/2011 Visit Plan: Finish abx Diflucan for vagi nitis Premarin vaginal cream Smoking cessation 12/17/2010 Appointment: Vika Renteria WPtel: [address] [place] [address] Follow Up 12/17/2010 Patient Education: Patient Medication Summary Completed 12/17/2010 Appointment: Vika Renteria WPtel: [address] [place] [address] FOLLOW UP 11/06/2010 Visit Plan: Start PT Use SVNs every 4hrs Smoking Cessation Change MS Contin to 200mg q 12hrs 2010 Appointment: Vika Renteria WPtel: [address] [place], [place] [phone] FOLLOW UP 2010 Patient Education: Patient Medication Summary Completed 2010 Visit Plan: Prednisone taper for pain an d lungs 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 Increase fluoxetine to 60mg QD for acute stress reaction 10/02/2010 Appointment: Vika Renteria WPtel: [address] [place], [place] [phone] FOLLOW UP 10/02/2010 Patient Education: Patient Medication Summary Completed 10/02/2010 Visit Plan: Check CT Head, Cervical, Tho racic, and Lumbar Spine Cont current meds Bactrim for left toe 09/24/2010 Appointment: Vika Renteria WPtel: [address] [place] [address] CHECK UP 09/24/2010 Patient Education: Patient Medication Summary Completed 09/24/2010 Appointment: Vika Renteria WPtel: [address] [place] [address] FOLLOW UP 09/02/2010 Patient Education: Patient Medication Summary Completed 09/02/2010 Visit Plan: Return for 2nd epidural Obse rve right leg lesion Cont Symbicort and Spiriva 07/14/2010 Appointment: Vika Renteria WPtel: [address] [place] [address] FOLLOW UP 07/14/2010 Patient Education: Patient Medication Summary Completed 07/14/2010 Appointment: Vika Renteria WPtel: [address] [place] [address] FOLLOW UP 05/27/2010 Appointment: Vika Renteria WPtel: [address] [place] [address] FOLLOW UP 05/14/2010 Visit Plan: SVN with Albuterol 0.083% Q4 hrs and Q2hrs prn. Restart Spiriva Smoking Cessation 05/07/2010 Appointment: Vika Renteria WPtel: [address] [place] [address] FOLLOW UP 05/07/2010 Patient Education: Patient Medication Summary Completed 05/07/2010 Appointment: Vika Renteria WPtel: [address] [place] [address] ACUTE ILLNESS 04/08/2010 Patient Education: Patient Medication Summary Completed 04/08/2010 Referral: Kyle Billings WPtel: [address] [place] [address] Referral Completed Referral: Jaylan Matute WPtel: [address] [facility] [address] [id number] [place] Referral Initiated Referral: [facility] [phone] [id number] [place] Referral Appointment Requested Instructions Comment [...] prn breakthrough pain . Discussed that some [facility] [place]'s Bees produc ts are petroleum free If [...]
--- OUTSIDE RECORDS SUMMARY | 2020-04-24 22:10 | XMS REPORT | CCD ---
Author Author Yana Renteria D.O. Organization [facility] Address [address] [place] [address] Phone Care Team Providers Care Comfort Station Supervisor Name Role Phone Vika Renteria D.O., PP Unavailable CCM Unavailable Summary Purpose Interface Exchange Insurance Providers Payer name Policy type / Coverage type Covered constitution party ID Effective Begin Date Effective End Date [employer] [facility] [place] Medicaid [id number] 2018 U nknown Family History Family History data not found Social History Social History Element Codes Description Effective Dates Marital status Unknown 06/28/[address]: [id number] Currently smokes tobacco 05/2013 Allergies, Adverse Reactions, [...] Start Date Stop Date Status Fill Instructions levothyroxine 25 mcg tablet RxNorm: 056738 TAKE ONE TAB LET BY MOUTH EVERY MORNING 04/09/2020 No Stop Date Active metformin 500 mg tablet RxNorm: 926366 1 Tablet(s) Oral QD 04/09/20 20 07/08/2020 Active MS Contin 200 mg tablet,extended release RxNorm: 804890 1 Tablet(s) Oral two times a day 03/19/2020 04/17/2020 Active Relistor 150 mg tablet RxNorm: 0128101 TAKE THREE TABLETS BY BENOIT TH DAILY 03/13/2020 No Stop Date Active cyclobenzaprine 10 mg tablet RxNorm: 016324 TAKE ONE TA BLET BY MOUTH THREE TIMES A DAY NEEDED 03/13/2020 No Stop Date Active furosemide 40 mg tablet RxNorm: 408697 TAKE ONE TABLET BY MOUTH EVERY MORNING 03/13/2020 No Stop Date Active hydroxyzine HCl 50 mg tablet RxNorm: 361936 1 Tablet(s) Oral two times a day to take with morphine--replaces benadryl 03/12/2020 04/11/2020 Active prednisone 1 mg tablet RxNorm: 014101 1 Tablet(s) Oral two times a day to take with hydroxyzine 03/12/2020 No Stop Date Active prednisolone 5 mg tablet RxNorm: 879726 1 Tablet(s) Oral two ti mes a day 02/22/2020 03/23/2020 Inactive prednisolone 5 mg tablet RxNorm: 093028 1 Tablet(s) Oral two ti mes a day 02/22/2020 02/21/2020 Inactive Symbicort 160 mcg-4.5 mcg/actuation HFA aerosol inhaler RxNo rm: 0953585 INHALE TWO PUFFS BY MOUTH TWICE A DAY 02/19/2020 No Stop Date Active Daliresp 500 mcg tablet RxNorm: 8441331 TAKE ONE TABLET BY MOUTH DAILY 02/19/2020 No Stop Date Active prednisone 20 mg tablet RxNorm: 772715 1 Tablet(s) Oral two yumi es a day 02/13/2020 02/20/2020 Inactive oxycodone 30 mg tablet RxNorm: 7065303 1 Tablet(s) Oral four times a day replaces MS Contin 02/13/2020 02/22/2020 Inactive levothyroxine 25 mcg tablet RxNorm: 535829 TAKE ONE TAB LET BY MOUTH EVERY MORNING 02/09/2020 04/08/2020 Inactive MS Contin 200 mg tablet,extended release RxNorm: 140062 1 Tablet(s) Oral two times a day 02/01/2020 03/01/2020 Inactive Premarin 0.45 mg tablet RxNorm: 808950 TAKE ONE TABLET BY MOUTH DAILY 01/31/2020 No Stop Date Active cyclobenzaprine 10 mg tablet RxNorm: 110473 TAKE ONE TA BLET BY MOUTH THREE TIMES A DAY NEEDED 01/31/2020 03/12/2020 Inactive metformin 500 mg tablet RxNorm: 028476 1 Tablet(s) Oral QD 01/31/2004/08/2020 Inactive gabapentin 300 mg capsule RxNorm: 253410 TAKE ONE CAPSULE BY [facility] TWICE A DAY 01/16/2020 No Stop Date Active potassium chloride ER 20 mEq tablet,extended release RxNorm: 885529 TAKE ONE TABLET BY MOUTH DAILY 01/08/2020 07/05/2020 Active ProAir HFA 90 mcg/actuation aerosol inhaler RxNorm: 453800 INHALE ONE PUFF BY MOUTH EVERY 4 HOURS FOR WHEEZING OR FOR SHORTNESS OF BREATH 01/04/2020 No Stop Date Active metformin 500 mg tablet RxNorm: 337411 1 Tablet(s) Oral QD 01/04/2004/09/2020 Inactive MS Contin 200 mg tablet,extended release RxNorm: 831953 1 Tablet(s) Oral two times a day 01/02/2020 01/31/2020 Inactive Pulmicort 1 mg/2 mL suspension for nebulization RxNorm: 6168 19 USE ONE VIAL VIA NEBULIZER BY MOUTH TWICE A DAY 12/21/2019 No Stop Date Active furosemide 40 mg tablet RxNorm: 182460 TAKE ONE TABLET BY MOUTH EVERY MORNING NEEDED 12/20/2019 03/12/2020 Inactive levothyroxine 25 mcg tablet RxNorm: 132611 TAKE ONE TAB LET BY MOUTH EVERY MORNING 12/20/2019 02/08/2020 Inactive MS Contin 200 mg tablet,extended release RxNorm: 567408 1 Tablet(s) Oral two times a day 12/05/2019 01/01/2020 Inactive Medrol (Aníbal) 4 mg tablets in a dose pack RxNorm: 000516 6 Tablet(s) Oral QD --then as directed 11/30/2019 12/05/2019 Inactive MS Contin 200 mg tablet,extended release RxNorm: 194700 1 Tablet(s) Oral two times a day 11/29/2019 12/04/2019 Inactive cyclobenzaprine 10 mg tablet RxNorm: 164619 TAKE ONE TA BLET BY MOUTH THREE TIMES A DAY NEEDED 11/21/2019 01/30/2020 Inactive MS Contin 200 mg tablet,extended release RxNorm: 031446 1 Tablet(s) Oral two times a day replaces 100mg dose 11/03/2019 11/02/2019 Inactive MS Contin 200 mg tablet,extended release RxNorm: 311568 1 Tablet(s) Oral two times a day replaces 100mg dose 11/03/2019 11/29/2019 Inactive ferrous sulfate 325 mg (65 mg iron) tablet RxNorm: 255705 1 Tab let(s) Oral QD 10/30/2019 No Stop Date Active MS Contin 100 mg tablet,extended release RxNorm: 603493 1 Table t(s) Oral QD 10/30/2019 10/29/2019 Inactive MS Contin 100 mg tablet,extended release RxNorm: 444102 1 Table t(s) Oral QD 10/30/2019 11/02/2019 Inactive pantoprazole 40 mg tablet,delayed release RxNorm: 178592 1 Tabl et(s) Oral QD 10/25/2019 No Stop Date Active Minipress 2 mg capsule RxNorm: 090361 1 Capsule(s) Oral QAM and 3 at bedtime 10/25/2019 No Stop Date Active Lancets, Super Thin RxNorm: 1 Unit Dose Miscellaneous QD 9 11/27/2020 Active Cymbalta 60 mg capsule,delayed release RxNorm: 656660 1 Capsule (s) Oral QAM 10/25/2019 No Stop Date Active Cymbalta 30 mg capsule,delayed release RxNorm: 643961 1 Capsule (s) Oral QAM 10/25/2019 No Stop Date Active Relistor 150 mg tablet RxNorm: 0851340 TAKE THREE TABLETS BY BENOIT TH DAILY 10/25/2019 03/12/2020 Inactive oxycodone 15 mg tablet RxNorm: 9710631 1 Tablet(s) Oral four times a day as needed for pain 10/25/2019 11/28/2019 Inactive metformin 500 mg tablet RxNorm: 320929 1 Tablet(s) Oral QD 10/25/2001/03/2020 Inactive levothyroxine 25 mcg tablet RxNorm: 037879 1 Tablet(s) Oral QAM 02/201912/19/2019 Inactive levothyroxine 25 mcg tablet RxNorm: 883360 1 Tablet(s) Oral QAM 02/201910/24/2019 Inactive MS Contin 100 mg tablet,extended release RxNorm: 755509 1 Tablet(s) Oral two times a day replaces fentanyl 10/25/2019 10/25/2019 Inactive Premarin 0.45 mg tablet RxNorm: 746685 TAKE ONE TABLET BY MOUTH DAILY 10/24/2019 01/30/2020 Inactive Duragesic 100 mcg/hr transdermal patch RxNorm: 310924 2 Application TD Q48H for pain 10/18/2019 10/24/2019 Inactive gabapentin 300 mg capsule RxNorm: 536097 TAKE ONE CAPSULE BY [facility] TWICE A DAY 10/16/2019 01/15/2020 Inactive cyclobenzaprine 10 mg tablet RxNorm: 173325 TAKE ONE TA BLET BY MOUTH THREE TIMES A DAY NEEDED 09/27/2019 11/20/2019 Inactive Relistor 150 mg tablet RxNorm: 2241685 TAKE THREE TABLETS BY BENOIT DAILY 09/25/2019 10/24/2019 Inactive ProAir HFA 90 mcg/actuation aerosol inhaler RxNorm: 205997 INHALE ONE PUFF BY MOUTH EVERY 4 HOURS FOR WHEEZING OR FOR SHORTNESS OF BREATH 09/25/2019 01/03/2020 Inactive furosemide 40 mg tablet RxNorm: 272519 1 Tablet(s) Oral QAM as needed 09/25/2019 09/25/2019 Inactive oxycodone 15 mg tablet RxNorm: 6317025 1 Tablet(s) PO QID as nee ded for pain 09/21/2019 10/24/2019 Inactive Duragesic 100 mcg/hr transdermal patch RxNorm: 782535 2 Application TD Q48H for pain 09/19/2019 10/17/2019 Inactive Daliresp 500 mcg tablet RxNorm: 3094514 1 Tablet(s) Oral QD 019 02/18/2020 Inactive Relistor 150 mg tablet RxNorm: 0497402 TAKE THREE TABLETS BY BENOIT TH DAILY 07/25/2019 07/30/2019 Inactive cyclobenzaprine 10 mg tablet RxNorm: 967305 TAKE ONE TA BLET BY MOUTH THREE TIMES A DAY NEEDED 07/25/2019 09/22/2019 Inactive potassium chloride ER 20 mEq tablet,extended release RxNorm: 624194 TAKE ONE TABLET BY MOUTH DAILY 07/25/2019 01/07/2020 Inactive fluoxetine 40 mg capsule RxNorm: 123994 TAKE ONE CAPSULE BY BENOIT TH EVERY MORNING 07/11/2019 10/24/2019 Inactive Medrol (Aníbal) 4 mg tablets in a dose pack RxNorm: 615655 6 Tablet(s) PO QD --then as directed 07/10/2019 07/15/2019 Inactive omeprazole 40 mg capsule,delayed release RxNorm: 226263 1 Capsule(s) PO QD for stomach TAKE ONE CAPSULE BY MOUTH DAILY 07/10/2019 10/24/2019 Inactive Augmentin 875 mg-125 mg tablet RxNorm: 564116 1 Tablet(s) PO BID 07/16/2019 Inactive Trulicity 0.75 mg/0.5 mL subcutaneous pen injector RxNorm: 1 858334 0.75 Milliliter(s) SQ weekly 07/05/2019 10/24/2019 Inactive Compazine 10 mg tablet RxNorm: 466936 TAKE ONE TABLET B Y MOUTH FOUR TIMES A DAY NEEDED FOR NAUSEA 06/20/2019 07/19/2019 Inactive ProAir HFA 90 mcg/actuation aerosol inhaler RxNorm: 515444 INHALE ONE PUFF BY MOUTH EVERY 4 HOURS FOR WHEEZING OR FOR SHORTNESS OF BREATH 06/20/2019 06/23/2019 Inactive Daliresp 500 mcg tablet RxNorm: 0443850 TAKE ONE TABLET BY MOUTH DAILY 06/12/2019 09/10/2019 Inactive vbbayekz-bvsbvizcr-agmwktuiy 3.5 mg/mL-10,000 unit/mL- 1 % ear solution RxNorm: 891707 4 Drop(s) otic (ear) TID to left ear 06/05/2019 10/24/2019 Inac tive furosemide 40 mg tablet RxNorm: 400470 TAKE ONE TABLET BY MOUTH EVERY MORNING 05/26/2019 07/09/2019 Inactive Duragesic 100 mcg/hr transdermal patch RxNorm: 102069 2 Application TD Q48H for pain 05/16/2019 06/14/2019 Inactive oxycodone 15 mg tablet RxNorm: 2334421 1 Tablet(s) PO QID as nee ded for pain 05/10/2019 09/20/2019 Inactive doxycycline hyclate 100 mg capsule RxNorm: 9289447 1 Capsule(s) PO BID 05/03/2019 05/12/2019 Inactive prednisone 20 mg tablet RxNorm: 781051 1 Tablet(s) PO T ID for 3 days then 1 po BID for 3 days then one daily for 3 days 05/03/2019 07/11/2019 Inactiv e Ozempic 0.25 mg or 0.5 mg (2 mg/1.5 mL) subcutaneous p en injector RxNorm: 0075497 0.5 Milligram(s) SQ QW 05/03/2019 07/09/2019 Inactive fluconazole 100 mg tablet RxNorm: 093281 1 Tablet(s) PO QD 05/03/2005/07/2019 Inactive Premarin 0.45 mg tablet RxNorm: 242990 TAKE ONE TABLET BY MOUTH DAILY 05/03/2019 10/23/2019 Inactive potassium chloride ER 20 mEq tablet,extended release RxNorm: 437548 1 Tablet(s) PO QD 04/27/2019 07/25/2019 Inactive potassium chloride ER 20 mEq tablet,extended release RxNorm: 529348 1 Tablet(s) PO QD 04/25/2019 04/26/2019 Inactive Compazine 10 mg tablet RxNorm: 191219 1 Tablet(s) PO QID as nee ded for nausea 04/25/2019 05/04/2019 Inactive ProAir HFA 90 mcg/actuation aerosol inhaler RxNorm: 473506 INHALE ONE PUFF BY MOUTH EVERY 4 HOURS FOR WHEEZING OR FOR SHORTNESS OF BREATH 04/12/2019 06/10/2019 Inactive Medrol (Aníbal) 4 mg tablets in a dose pack RxNorm: 512144 6 Tablet(s) PO QD --then as directed 04/11/2019 04/16/2019 Inactive Symbicort 160 mcg-4.5 mcg/actuation HFA aerosol inhaler RxNo rm: 4645810 2 Puff(s) INH BID 04/10/2019 10/06/2019 Inactive levothyroxine 50 mcg tablet RxNorm: 895228 1 Tablet(s) PO QD 201810/24/2019 Inactive gabapentin 300 mg capsule RxNorm: 170075 1 Capsule(s) PO BID 201810/02/2019 Inactive Symbicort 160 mcg-4.5 mcg/actuation HFA aerosol inhaler RxNo rm: 8320531 2 Puff(s) INH BID 04/06/2019 04/09/2019 Inactive oxycodone 15 mg tablet RxNorm: 2257016 1 Tablet(s) PO QID as nee ded for pain 04/05/2019 05/09/2019 Inactive levothyroxine 50 mcg tablet RxNorm: 296756 1 Tablet(s) PO QD 201804/09/2019 Inactive furosemide 40 mg tablet RxNorm: 544086 TAKE ONE TABLET BY MOUTH EVERY MORNING 03/21/2019 04/19/2019 Inactive levothyroxine 50 mcg tablet RxNorm: 359512 TAKE ONE TABLET BY M OUTH DAILY 03/21/2019 03/27/2019 Inactive Duragesic 100 mcg/hr transdermal patch RxNorm: 153889 2 Application TD Q48H for pain 03/13/2019 04/11/2019 Inactive oxycodone 15 mg tablet RxNorm: 0209586 1 Tablet(s) PO QID as nee ded for pain 03/06/2019 04/04/2019 Inactive Relistor 150 mg tablet RxNorm: 0403462 3 Tablet(s) PO QD 02/28/2019 0 05/28/2019 Inactive cyclobenzaprine 10 mg tablet RxNorm: 708958 1 Tablet(s) PO TID as needed 02/28/2019 05/28/2019 Inactive phentermine 37.5 mg tablet RxNorm: 683363 1 Tablet(s) PO QAM 201803/15/2019 Inactive Duragesic 100 mcg/hr transdermal patch RxNorm: 941751 2 Application TD Q48H for pain 02/09/2019 03/10/2019 Inactive Daliresp 500 mcg tablet RxNorm: 4611962 TAKE ONE TABLET BY MOUTH DAILY 01/31/2019 05/30/2019 Inactive Premarin 0.45 mg tablet RxNorm: 103623 1 Tablet(s) PO QD 01/31/2019 0 04/30/2019 Inactive fluoxetine 40 mg capsule RxNorm: 012194 Capsule(s) TAKE ONE CAPSULE BY MOUTH EVERY MORNING 01/31/2019 04/30/2019 Inactive levothyroxine 50 mcg tablet RxNorm: 730778 1 Tablet(s) PO QD 201804/10/2019 Inactive follow up in 3 weeks levothyroxine 50 mcg tablet RxNorm: 792995 1 Tablet(s) PO QD 201801/25/2019 Inactive follow up in 3 weeks potassium chloride ER 20 mEq tablet,extended release RxNorm: 227651 2 Tablet(s) PO BID 01/23/2019 01/08/2020 Inactive Synthroid 50 mcg tablet RxNorm: 505802 TAKE ONE TABLET BY MOUTH DAILY 01/16/2019 10/24/2019 Inactive potassium chloride ER 20 mEq tablet,extended release RxNorm: 883931 2 Tablet(s) PO BID 01/04/2019 01/22/2019 Inactive ProAir HFA 90 mcg/actuation aerosol inhaler RxNorm: 632356 INHALE ONE PUFF BY MOUTH EVERY 4 HOURS FOR WHEEZING OR SHORTNESS OF BREATH 01/04/201902/20 Inactive Request already responded to by other me ans (e.g. phone or fax) ProAir HFA 90 mcg/actuation aerosol inhaler RxNorm: 8344636 INHALE ONE PUFF BY MOUTH EVERY 4 HOURS FOR WHEEZING OR SHORTNESS OF BREATH 01/02/201912/23 Inactive gabapentin 300 mg capsule RxNorm: 987967 TAKE ONE CAPSULE BY [facility] TWICE A DAY 12/30/2018 04/06/2019 Inactive furosemide 40 mg tablet RxNorm: 766309 1 Tablet(s) PO QAM 12/26/2018 02/23/2019 Inactive Compazine 10 mg tablet RxNorm: 932481 1 Tablet(s) PO QID as nee ded for nausea 12/07/2018 12/16/2018 Inactive metolazone 2.5 mg tablet RxNorm: 153131 TAKE ONE TABLET BY MOUT H EVERY MORNING 12/05/2018 01/03/2019 Inactive metformin ER 500 mg tablet,extended release 24 hr RxNorm: 86 0975 TAKE ONE TABLET BY MOUTH DAILY 12/05/2018 01/31/2020 Inactive Synthroid 50 mcg tablet RxNorm: 344657 1 Tablet(s) PO QD 11/25/2018 0 01/03/2019 Inactive DC any other synthroid strengths. Should be 50mcg only cyclobenzaprine 10 mg tablet RxNorm: 879721 TAKE ONE TA BLET BY MOUTH THREE TIMES A DAY NEEDED 11/09/2018 02/06/2019 Inactive metolazone 2.5 mg tablet RxNorm: 449117 1 Tablet(s) PO QAM repl aces 5mg dose 11/02/2018 12/01/2018 Inactive potassium chloride ER 20 mEq tablet,extended release RxNorm: 232657 2 Tablet(s) PO QD 2018 01/02/2019 Inactive Compazine 10 mg tablet RxNorm: 075188 1 Tablet(s) PO QID as nee ded for nausea 10/18/2018 12/07/2018 Inactive furosemide 40 mg tablet RxNorm: 554587 1 Tablet(s) PO QAM 10/12/2018 12/10/2018 Inactive ondansetron 8 mg disintegrating tablet RxNorm: 079058 1 Tablet(s) PO Q6H as needed 10/11/2018 10/17/2018 Inactive scopolamine 1 mg over 3 days transdermal patch RxNorm: 13216 2 1 Application TD behind ear. Take off after three days 10/11/2018 01/02/2019 Inactive furosemide 40 mg tablet RxNorm: 011401 1 Tablet(s) PO QAM 10/10/2018 12/26/2018 Inactive metolazone 5 mg tablet RxNorm: 516663 1 Tablet(s) PO QAM 10/06/2018 1 01/03/2018 Inactive metolazone 5 mg tablet RxNorm: 228380 1 Tablet(s) PO QAM 10/06/2018 1 12/05/2017 Inactive Xtampza ER 36 mg capsule sprinkle RxNorm: 7590629 1 Capsule(s) P O BID 10/05/2018 01/02/2019 Inactive Xtampza ER 36 mg capsule sprinkle RxNorm: 2919937 1 Capsule(s) P O BID 10/05/2018 02/12/2019 Inactive omeprazole 40 mg capsule,delayed release RxNorm: 063102 TAKE ONE CAPSULE BY MOUTH DAILY 10/03/2018 12/31/2018 Inactive Duragesic 100 mcg/hr transdermal patch RxNorm: 577982 2 Application TD Q48H for pain 09/30/2018 10/29/2018 Inactive Synthroid 50 mcg tablet RxNorm: 667107 1 Tablet(s) PO QD 09/29/2018 0 11/25/2018 Inactive DC any other synthroid strengths. Should be 50mcg only Synthroid 50 mcg tablet RxNorm: 432595 1 Tablet(s) PO QD 09/29/2018 1 11/28/2017 Inactive furosemide 40 mg tablet RxNorm: 169463 2 Tablet(s) PO Q AM for 1 week then every other day for 2 weeks 09/27/2018 10/12/2018 Inactive fluoxetine 40 mg capsule RxNorm: 377629 2 Capsule(s) PO QD 09/27/20 18 10/17/2018 Inactive potassium chloride ER 20 mEq tablet,extended release RxNorm: 812058 2 Tablet(s) PO QD for 1 week then every other day for 2 weeks 09/27/2018 2018 Inactive ProAir HFA 90 mcg/actuation aerosol inhaler RxNorm: 2685715 INHALE ONE PUFF BY MOUTH EVERY 4 HOURS FOR WHEEZING OR SHORTNESS OF BREATH 09/26/201811/23 Inactive Synthroid 75 mcg tablet RxNorm: 188407 1 Tablet(s) PO QD 09/09/2018 Inactive Synthroid 75 mcg tablet RxNorm: 570345 1 Tablet(s) PO QD 09/09/2018 1 11/28/2017 Inactive furosemide 40 mg tablet RxNorm: 035751 1 Tablet(s) PO QD 09/06/2018 1 Inactive potassium chloride ER 20 mEq tablet,extended release RxNorm: 139800 1 Tablet(s) PO QD 09/06/2018 09/19/2018 Inactive Duragesic 100 mcg/hr transdermal patch RxNorm: 184177 2 Application TD Q48H for pain 08/30/2018 09/28/2018 Inactive gabapentin 300 mg capsule RxNorm: 780006 TAKE ONE CAPSULE BY MO [facility] TWICE A DAY 08/23/2018 12/20/2018 Inactive Daliresp 500 mcg tablet RxNorm: 0849107 TAKE ONE TABLET BY MOUTH DAILY 08/23/2018 01/19/2019 Inactive Pulmicort 1 mg/2 mL suspension for nebulization RxNorm: 6168 19 USE ONE VIAL VIA NEBULIZER BY MOUTH TWICE A DAY 08/23/2018 07/11/2019 Inactive Synthroid 88 mcg tablet RxNorm: 131673 1 Tablet(s) PO QD 08/19/2018 1 Inactive Medrol (Aníbal) 4 mg tablets in a dose pack RxNorm: 864850 Tablet(s) PO take as directed 08/16/2018 09/05/2018 Inactive Relistor 150 mg tablet RxNorm: 5879238 3 Tablet(s) PO QD 08/16/2018 1 Inactive Zithromax Z-Aníbal 250 mg tablet RxNorm: 197074 Tablet(s) PO take as directed 08/16/2018 09/05/2018 Inactive cyclobenzaprine 10 mg tablet RxNorm: 892628 1 Tablet(s) PO TID as needed 08/16/2018 11/08/2018 Inactive Synthroid 88 mcg tablet RxNorm: 685683 1 Tablet(s) PO Q D NEEDS UPDATED LABS BEFORE FURTHER REFILLS 08/08/2018 08/19/2018 Inactive Premarin 0.45 mg tablet RxNorm: 714061 1 Tablet(s) PO QD 08/03/2018 0 01/31/2019 Inactive fluoxetine 20 mg capsule RxNorm: 164503 TAKE ONE CAPSULE BY BENOIT TH DAILY 08/03/2018 09/26/2018 Inactive Xtampza ER 36 mg capsule sprinkle RxNorm: 7000785 1 Capsule(s) P O BID 08/03/2018 09/01/2018 Inactive metformin ER 500 mg tablet,extended release 24 hr RxNorm: 86 0975 1 Tablet(s) PO QD 08/03/2018 10/31/2018 Inactive Symbicort 160 mcg-4.5 mcg/actuation HFA aerosol inhaler RxNo rm: 6944450 2 Puff(s) INH BID 08/03/2018 01/29/2019 Inactive Duragesic 100 mcg/hr transdermal patch RxNorm: 983471 2 Application TD Q48H for pain 07/29/2018 08/27/2018 Inactive ProAir HFA 90 mcg/actuation aerosol inhaler RxNorm: 218942 INHALE TWO PUFFS BY MOUTH EVERY 4 HOURS FOR WHEEZING OR SHORTNESS OF BREATH 07/27/201802/2018 Inactive Relistor 150 mg tablet RxNorm: 4054024 3 Tablet(s) PO QD 07/20/2018 0 08/15/2018 Inactive metformin ER 500 mg tablet,extended release 24 hr RxNorm: 86 0975 TAKE ONE TABLET BY MOUTH DAILY 07/08/2018 08/02/2018 Inactive fluoxetine 40 mg capsule RxNorm: 268112 TAKE ONE CAPSULE BY BENOIT TH EVERY MORNING 07/08/2018 10/05/2018 Inactive Xtampza ER 18 mg capsule sprinkle RxNorm: 1977263 1 Capsule(s) P O BID 07/08/2018 08/02/2018 Inactive Relistor 150 mg tablet RxNorm: 1987521 3 Tablet(s) PO QD 07/08/2018 0 07/12/2018 Inactive Synthroid 88 mcg tablet RxNorm: 737528 1 Tablet(s) PO Q D NEEDS UPDATED LABS BEFORE FURTHER REFILLS 06/23/2018 07/07/2018 Inactive fluoxetine 40 mg capsule RxNorm: 698824 TAKE ONE CAPSULE BY BENOIT TH EVERY MORNING 06/15/2018 09/26/2018 Inactive orphenadrine citrate ER 100 mg tablet,extended release RxNor m: 945181 TAKE ONE TABLET BY MOUTH TWICE A DAY FOR MUSCLE SPASM 06/15/2018 08/15/2018 Renu ctive Duragesic 100 mcg/hr transdermal patch RxNorm: 850288 2 Application TD Q48H for pain 05/30/2018 06/28/2018 Inactive ProAir HFA 90 mcg/actuation aerosol inhaler RxNorm: 526560 INHALE TWO PUFFS BY MOUTH EVERY 4 HOURS FOR WHEEZING OR SHORTNESS OF BREATH 05/19/201803/2018 Inactive Chantix Continuing Month Box 1 mg tablet RxNorm: 594694 TAKE ONE TABLET BY MOUTH TWICE A DAY 05/19/2018 08/15/2018 Inactive oxycodone 10 mg tablet RxNorm: 6638176 1-2 Tablet(s) PO QID as n eeded for pain 05/19/2018 07/07/2018 Inactive gabapentin 300 mg capsule RxNorm: 800178 TAKE ONE CAPSULE BY [facility] TWICE A DAY 05/18/2018 07/16/2018 Inactive ProAir HFA 90 mcg/actuation aerosol inhaler RxNorm: 504676 INHALE TWO PUFFS BY MOUTH EVERY 4 HOURS FOR WHEEZING OR SHORTNESS OF BREATH 05/04/201804/23 Inactive Augmentin 500 mg-125 mg tablet RxNorm: 642511 1 Tablet(s) PO BID 05/03/2018 Inactive oxycodone 10 mg tablet RxNorm: 0195786 1-2 Tablet(s) PO QID as n eeded for pain 04/21/2018 05/18/2018 Inactive Synthroid 88 mcg tablet RxNorm: 569444 1 Tablet(s) PO QD 04/15/2018 0 08/08/2018 Inactive Symbicort 160 mcg-4.5 mcg/actuation HFA aerosol inhaler RxNo rm: 6280460 2 Puff(s) INH BID 04/15/2018 04/10/2019 Inactive Premarin 0.45 mg tablet RxNorm: 885612 1 Tablet(s) PO QD 04/15/2018 0 08/03/2018 Inactive ProAir HFA 90 mcg/actuation aerosol inhaler RxNorm: 924500 2 Puff(s) INH Q4H prn for wheezing or shortness of breath 04/15/2018 05/03/2018 Inactive metformin ER 500 mg tablet,extended release 24 hr RxNorm: 86 0975 1 Tablet(s) PO QD 04/11/2018 07/07/2018 Inactive omeprazole 40 mg capsule,delayed release RxNorm: 313420 TAKE ONE CAPSULE BY MOUTH DAILY 04/10/2018 06/08/2018 Inactive Synthroid 88 mcg tablet RxNorm: 986969 1 Tablet(s) PO QD 04/04/2018 0 04/14/2018 Inactive Synthroid 88 mcg tablet RxNorm: 607115 1 Tablet(s) PO QD 04/04/2018 0 04/03/2018 Inactive orphenadrine citrate ER 100 mg tablet,extended release RxNor m: 611269 1 Tablet(s) PO BID for muscle spasm 04/04/2018 05/03/2018 Inactive metformin ER 500 mg tablet,extended release 24 hr RxNorm: 86 0975 1 Tablet(s) PO QD NEEDS UPDATED LABS 03/31/2018 04/11/2018 Inactive doxycycline hyclate 100 mg capsule RxNorm: 6414007 1 Capsule(s) PO BID 03/31/2018 04/09/2018 Inactive prednisone 20 mg tablet RxNorm: 907789 3 Tablet(s) PO T ID for 3 days then 1 po BID for 3 days then one daily for 3 days 03/31/2018 07/06/2018 Inactiv e Chantix Continuing Month Box 1 mg tablet RxNorm: 744765 TAKE ONE TABLET BY MOUTH TWICE A DAY 03/25/2018 03/30/2018 Inactive oxycodone 10 mg tablet RxNorm: 0246388 1-2 Tablet(s) PO QID as n eeded for pain 03/21/2018 04/20/2018 Inactive Daliresp 500 mcg tablet RxNorm: 4482654 1 Tablet(s) PO QD 03/15/2018 08/22/2018 Inactive metformin ER 500 mg tablet,extended release 24 hr RxNorm: 86 0975 1 Tablet(s) PO QD NEEDS UPDATED LABS 03/14/2018 03/31/2018 Inactive nystatin 100,000 unit/mL oral suspension RxNorm: 853313 5 Chio liter(s) PO QID 03/02/2018 03/15/2018 Inactive nystatin 100,000 unit/mL oral suspension RxNorm: 106887 5 Chio liter(s) PO QID 03/02/2018 03/01/2018 Inactive oxycodone 10 mg tablet RxNorm: 5224699 1-2 Tablet(s) PO QID as n eeded for pain 02/16/2018 03/20/2018 Inactive fluoxetine 20 mg capsule RxNorm: 678807 1 Capsule(s) PO QD 02/15/20 18 08/02/2018 Inactive metformin ER 500 mg tablet,extended release 24 hr RxNorm: 86 0975 1 Tablet(s) PO QD Needs updated labs 02/14/2018 03/14/2018 Inactive cefdinir 300 mg capsule RxNorm: 679990 1 Capsule(s) PO BID 01/27/20 18 02/04/2018 Inactive orphenadrine citrate ER 100 mg tablet,extended release RxNor m: 309362 1 Tablet(s) PO BID for muscle spasm 01/26/2018 04/04/2018 Inactive gabapentin 300 mg capsule RxNorm: 758696 1 Capsule(s) PO BID 201704/17/2018 Inactive oxycodone 10 mg tablet RxNorm: 9399770 1-2 Tablet(s) PO QID as n eeded for pain 01/17/2018 02/15/2018 Inactive Duragesic 100 mcg/hr transdermal patch RxNorm: 848039 2 Application TD Q48H for pain 01/17/2018 02/15/2018 Inactive gabapentin 300 mg capsule RxNorm: 511400 TAKE ONE CAPSULE BY MO UTH TWICE A DAY 12/20/2017 01/18/2018 Inactive fluoxetine 40 mg capsule RxNorm: 374048 TAKE ONE CAPSULE BY BENOIT TH EVERY MORNING 12/15/2017 03/14/2018 Inactive OneTouch Ultra Test strips RxNorm: TEST DAILY 11/04/2017 02/01/2018 Inactive gabapentin 300 mg capsule RxNorm: 135069 1 Capsule(s) P O TID replaces BID dosing 10/26/2017 02/22/2018 Inactive oxycodone 10 mg tablet RxNorm: 0605099 1-2 Tablet(s) PO QID as n eeded for pain 10/18/2017 01/16/2018 Inactive Duragesic 100 mcg/hr transdermal patch RxNorm: 476040 2 Application TD Q48H for pain 10/18/2017 11/16/2017 Inactive gabapentin 300 mg capsule RxNorm: 015666 1 Capsule(s) PO BID 201610/25/2017 Inactive Abilify 5 mg tablet RxNorm: 942914 1 Tablet(s) PO QAM 09/23/201702/2017 Inactive gabapentin 300 mg capsule RxNorm: 994432 1 Capsule(s) PO BID 201610/17/2017 Inactive oxycodone 10 mg tablet RxNorm: 2297255 1-2 Tablet(s) PO QID as n eeded for pain 09/15/2017 10/17/2017 Inactive Duragesic 100 mcg/hr transdermal patch RxNorm: 881933 2 Application TD Q48H for pain 09/15/2017 10/14/2017 Inactive Duragesic 100 mcg/hr transdermal patch RxNorm: 536973 2 Application TD Q48H for pain 09/15/2017 10/24/2019 Inactive oxycodone 10 mg tablet RxNorm: 5564797 1-2 Tablet(s) PO QID as n eeded for pain 09/15/2017 08/15/2018 Inactive Daliresp 500 mcg tablet RxNorm: 4735339 1 Tablet(s) PO QD 09/06/2017 03/15/2018 Inactive Ventolin HFA 90 mcg/actuation aerosol inhaler RxNorm: 636430 2 Puff(s) INH Q4H as needed 09/02/2017 05/19/2018 Inactive oxycodone 10 mg tablet RxNorm: 4797108 1-2 Tablet(s) PO QID as n eeded for pain 08/17/2017 09/14/2017 Inactive Duragesic 100 mcg/hr transdermal patch RxNorm: 925995 2 Application TD Q48H for pain 08/17/2017 09/14/2017 Inactive fluoxetine 40 mg capsule RxNorm: 104396 Capsule(s) TAKE ONE CAPSULE BY MOUTH EVERY MORNING 08/17/2017 12/14/2017 Inactive Pulmicort 1 mg/2 mL suspension for nebulization RxNorm: 6168 19 1 Unit Dose INH BID Dx: COPD (J44.9) 08/16/2017 08/22/2018 Inactive gabapentin 300 mg capsule RxNorm: 852572 1 Capsule(s) PO QHS 201610/18/2017 Inactive fluoxetine 20 mg capsule RxNorm: 166599 1 Capsule(s) PO QD 08/12/20 17 02/14/2018 Inactive Abilify 2 mg tablet RxNorm: 739684 1 Tablet(s) PO QD TA KE ONE TABLET BY MOUTH DAILY 08/12/2017 10/25/2017 Inactive metformin ER 500 mg tablet,extended release 24 hr RxNorm: 86 0975 1 Tablet(s) PO QD 08/10/2017 02/14/2018 Inactive Synthroid 112 mcg tablet RxNorm: 865215 1 Tablet(s) PO QD 08/10/2017 04/15/2018 Inactive oxycodone 10 mg tablet RxNorm: 0186193 1-2 Tablet(s) PO QID as n eeded for pain 07/19/2017 08/16/2017 Inactive Duragesic 100 mcg/hr transdermal patch RxNorm: 010185 2 Application TD Q48H for pain 07/19/2017 08/16/2017 Inactive Ventolin HFA 90 mcg/actuation aerosol inhaler RxNorm: 209922 2 Puff(s) INH Q4H as needed 07/12/2017 09/02/2017 Inactive Abilify 2 mg tablet RxNorm: 286416 1 Tablet(s) PO QD TA KE ONE TABLET BY MOUTH DAILY 07/06/2017 08/11/2017 Inactive gabapentin 800 mg tablet RxNorm: 451247 1 Tablet(s) PO TID 06/22/2007/05/2017 Inactive Chantix Starting Month Box 0.5 mg (11)-1 mg (42) table ts in dose pack RxNorm: 032396 TAKE BY MOUTH INSTRUCTED - PER PACKAGE INSTRUCTIONS 06/0707/04/2017 Inactive Ventolin HFA 90 mcg/actuation aerosol inhaler RxNorm: 927797 2 Puff(s) INH Q4H as needed 05/26/2017 07/12/2017 Inactive Duragesic 100 mcg/hr transdermal patch RxNorm: 707044 2 Application TD Q48H for pain 05/19/2017 06/17/2017 Inactive oxycodone 10 mg tablet RxNorm: 5084086 1-2 Tablet(s) PO QID as n eeded for pain 05/19/2017 07/18/2017 Inactive Abilify 2 mg tablet RxNorm: 670642 TAKE ONE TABLET BY MOUTH DAILY 0 05/10/2017 07/05/2017 Inactive Synthroid 112 mcg tablet RxNorm: 373964 1 Tablet(s) PO QD 05/06/2017 08/10/2017 Inactive metformin ER 500 mg tablet,extended release 24 hr RxNorm: 86 0975 1 Tablet(s) PO QD 05/06/2017 08/10/2017 Inactive Topamax 100 mg tablet RxNorm: 717970 1 Tablet(s) PO QHS 05/06/2017 Inactive Premarin 0.45 mg tablet RxNorm: 170812 1 Tablet(s) PO QD 05/06/2017 0 04/15/2018 Inactive orphenadrine citrate ER 100 mg tablet,extended release RxNor m: 624429 1 Tablet(s) PO TID for muscle spasm--replaces methocarbamol 04/29/2017 Inactive oxycodone 10 mg tablet RxNorm: 0679230 1-2 Tablet(s) PO QID as n eeded for pain 04/21/2017 05/18/2017 Inactive Duragesic 100 mcg/hr transdermal patch RxNorm: 569974 2 Application TD Q48H for pain 04/21/2017 05/18/2017 Inactive fluoxetine 40 mg capsule RxNorm: 387658 Capsule(s) TAKE ONE CAPSULE BY MOUTH EVERY MORNING 04/20/2017 08/17/2017 Inactive Ventolin HFA 90 mcg/actuation aerosol inhaler RxNorm: 564130 2 Puff(s) INH Q4H as needed 04/05/2017 05/26/2017 Inactive Symbicort 160 mcg-4.5 mcg/actuation HFA aerosol inhaler RxNo rm: 1519900 2 Puff(s) INH BID 03/30/2017 04/15/2018 Inactive Spiriva with HandiHaler 18 mcg and inhalation capsules RxNor m: 146237 1 Capsule(s) INH QD USING HANDIHALER 03/30/2017 02/12/2019 Inactive Duragesic 100 mcg/hr transdermal patch RxNorm: 614210 2 Application TD Q48H for pain 03/18/2017 04/16/2017 Inactive oxycodone 10 mg tablet RxNorm: 9629206 1-2 Tablet(s) PO QID as n eeded for pain 03/18/2017 04/20/2017 Inactive metformin ER 500 mg tablet,extended release 24 hr RxNorm: 86 0975 Tablet(s) TAKE ONE TABLET BY MOUTH DAILY 03/01/2017 05/06/2017 Inactive Premarin 0.45 mg tablet RxNorm: 214669 Tablet(s) TAKE ONE TABLE T BY MOUTH DAILY 03/01/2017 05/06/2017 Inactive Synthroid 112 mcg tablet RxNorm: 083672 Tablet(s) TAKE ONE TABLET BY MOUTH DAILY 03/01/2017 05/06/2017 Inactive Daliresp 500 mcg tablet RxNorm: 4770545 1 Tablet(s) PO QD 03/01/2017 09/06/2017 Inactive 16.2 mg-0.1037 mg-0.0194 mg tablet RxNorm: 2706620 Tablet(s) PO PRN for gas and cramping 02/23/2017 04/28/2017 Inactive TAKE TWO TABLET S BY MOUTH THREE TIMES A DAY NEEDED FOR GAS AND CRAMPING gabapentin 800 mg tablet RxNorm: 404913 1 Tablet(s) PO TID repl aces 600mg 02/23/2017 04/28/2017 Inactive Duragesic 100 mcg/hr transdermal patch RxNorm: 853344 2 Application TD Q48H for pain 02/17/2017 03/17/2017 Inactive fluoxetine 20 mg capsule RxNorm: 912029 1 Capsule(s) PO QD 02/18/2008/12/2017 Inactive oxycodone 20 mg tablet RxNorm: 6956190 1 Tablet(s) PO QID as nee ded for pain 02/17/2017 03/17/2017 Inactive Ventolin HFA 90 mcg/actuation aerosol inhaler RxNorm: 929623 INHALE TWO PUFFS BY MOUTH EVERY 4 HOURS NEEDED 02/15/2017 04/05/2017 Inactive Silvadene 1 % topical cream RxNorm: 186540 1 Application TOP BI D to burn area 02/01/2017 09/22/2017 Inactive Topamax 100 mg tablet RxNorm: 088153 TAKE ONE TABLET BY MOUTH EVERY NIGHT AT BEDTIME 01/29/2017 05/06/2017 Inactive Chantix Starting Month Box 0.5 mg (11)-1 mg (42) table ts in dose pack RxNorm: 499479 Tablet(s) PO as directed 01/29/2017 06/01/2017 Inactive Abilify 2 mg tablet RxNorm: 457651 TAKE ONE TABLET BY MOUTH DAILY 0 01/26/2017 04/25/2017 Inactive Chantix Starting Month Box 0.5 mg (11)-1 mg (42) table ts in dose pack RxNorm: 678396 Tablet(s) PO as directed 01/20/2017 01/28/2017 Inactive gabapentin 600 mg tablet RxNorm: 908341 1 Tablet(s) PO TID 01/21/20 17 02/22/2017 Inactive Chantix Continuing Month Box 1 mg tablet RxNorm: 564524 1 Table t(s) PO BID 12/31/2016 06/01/2017 Inactive Spiriva with HandiHaler 18 mcg and inhalation capsules RxNor m: 118766 INHALE THE ENTIRE CONTENTS OF 1 CAPSULE ONCE A DAY USING HANDIHALER 12/31/201607/2017 Inactive Synthroid 112 mcg tablet RxNorm: 856432 TAKE ONE TABLET BY MOUT H DAILY 12/30/2016 03/01/2017 Inactive metformin ER 500 mg tablet,extended release 24 hr RxNorm: 86 0975 TAKE ONE TABLET BY MOUTH DAILY 12/30/2016 03/01/2017 Inactive Premarin 0.45 mg tablet RxNorm: 017837 TAKE ONE TABLET BY MOUTH DAILY 12/30/2016 03/01/2017 Inactive omeprazole 40 mg capsule,delayed release RxNorm: 310931 TAKE ONE CAPSULE BY MOUTH DAILY 12/30/2016 01/25/2018 Inactive Ventolin HFA 90 mcg/actuation aerosol inhaler RxNorm: 688067 INHALE TWO PUFFS BY MOUTH EVERY 4 HOURS NEEDED 12/28/2016 02/13/2017 Inactive fluoxetine 40 mg capsule RxNorm: 839705 TAKE ONE CAPSULE BY BENOIT TH EVERY MORNING 12/15/2016 04/20/2017 Inactive Chantix Continuing Month Box 1 mg tablet RxNorm: 696612 TAKE ONE TABLET BY MOUTH TWICE A DAY 12/04/2016 12/31/2016 Inactive doxycycline hyclate 100 mg capsule RxNorm: 7986935 1 Capsule(s) PO BID 12/01/2016 12/07/2016 Inactive Levaquin 750 mg tablet RxNorm: 734274 1 Tablet(s) PO QD 12/01/2016 Inactive Abilify 2 mg tablet RxNorm: 439851 TAKE ONE TABLET BY MOUTH DAILY 0 11/25/2016 11/30/2016 Inactive Ventolin HFA 90 mcg/actuation aerosol inhaler RxNorm: 660951 INHALE TWO PUFFS BY MOUTH EVERY 4 HOURS NEEDED 11/02/2016 12/19/2016 Inactive Chantix Continuing Month Box 1 mg tablet RxNorm: 661231 Tablet(s) PO as directed 10/30/2016 12/03/2016 Inactive Symbicort 160 mcg-4.5 mcg/actuation HFA aerosol inhaler RxNo rm: 5007030 INHALE TWO PUFFS TWO TIMES A DAY 10/30/2016 03/30/2017 Inactive Abilify 2 mg tablet RxNorm: 157618 1 Tablet(s) PO QD 10/27/201611/24 Inactive amoxicillin 500 mg capsule RxNorm: 761691 1 Capsule(s) PO TID 10/1410/23/2016 Inactive amoxicillin 500 mg capsule RxNorm: 167524 1 Capsule(s) PO TID 10/1410/13/2016 Inactive Synthroid 112 mcg tablet RxNorm: 064209 TAKE ONE TABLET BY MOUT H DAILY 09/28/2016 12/29/2016 Inactive Topamax 100 mg tablet RxNorm: 421989 TAKE ONE TABLET BY MOUTH EVERY NIGHT AT BEDTIME 09/28/2016 01/28/2017 Inactive Premarin 0.45 mg tablet RxNorm: 825077 TAKE ONE TABLET BY MOUTH DAILY 09/28/2016 12/29/2016 Inactive metformin ER 500 mg tablet,extended release 24 hr RxNorm: 86 0975 TAKE ONE TABLET BY MOUTH DAILY 09/28/2016 12/29/2016 Inactive Ventolin HFA 90 mcg/actuation aerosol inhaler RxNorm: 317175 INHALE TWO PUFFS BY MOUTH EVERY 4 HOURS NEEDED 09/22/2016 10/23/2016 Inactive Pulmicort 1 mg/2 mL suspension for nebulization RxNorm: 6168 19 1 Unit Dose INH BID Dx: COPD (J44.9) 09/10/2016 08/16/2017 Inactive Pulmicort 1 mg/2 mL suspension for nebulization RxNorm: 6168 19 1 Unit Dose INH BID 09/10/2016 09/09/2016 Inactive Brovana 15 mcg/2 mL solution for nebulization RxNorm: 187091 1 Unit Dose INH BID Dx: COPD (J44.9) 09/10/2016 01/25/2018 Inactive Brovana 15 mcg/2 mL solution for nebulization RxNorm: 496561 1 Unit Dose INH BID 09/10/2016 09/09/2016 Inactive ipratropium-albuterol 0.5 mg-3 mg(2.5 mg base)/3 mL ne bulization soln RxNorm: 6188777 1 Unit Dose INH Q4H as needed Dx: COPD (J44.9) 09/10/2016 0 02/12/2019 Inactive orphenadrine citrate ER 100 mg tablet,extended release RxNor m: 453340 1 Tablet(s) PO BID for muscle spasm--replaces methocarbamol 09/09/2016 Inactive Chantix Continuing Month Box 1 mg tablet RxNorm: 868147 Tablet(s) PO as directed 09/09/2016 10/30/2016 Inactive orphenadrine citrate ER 100 mg tablet,extended release RxNor m: 479490 1 Tablet(s) PO BID for muscle spasm 09/09/2016 09/08/2016 Inactive Spiriva with HandiHaler 18 mcg and inhalation capsules RxNor m: 866714 INHALE THE ENTIRE CONTENTS OF 1 CAPSULE ONCE A DAY USING HANDIHALER 09/01/201605/2017 Inactive Daliresp 500 mcg tablet RxNorm: 1522945 1 Tablet(s) PO QD 08/27/2016 03/01/2017 Inactive prednisone 20 mg tablet RxNorm: 421051 3 Tablet(s) PO T ID for 3 days then 1 po BID for 3 days then one daily for 3 days 08/26/2016 04/28/2017 Inactiv e Wellbutrin XL 300 mg 24 hr tablet, extended release RxNorm: 079060 TAKE ONE TABLET BY MOUTH EVERY MORNING 07/29/2016 10/26/2016 Inactive gabapentin 600 mg tablet RxNorm: 255992 1 Tablet(s) PO BID 06/26/20 16 12/22/2016 Inactive fluoxetine 40 mg capsule RxNorm: 616731 TAKE ONE CAPSULE BY BENOIT TH EVERY MORNING 06/24/2016 11/20/2016 Inactive Duragesic 100 mcg/hr transdermal patch RxNorm: 284036 2 Application TD Q48H for pain 06/05/2016 07/04/2016 Inactive oxycodone 10 mg tablet RxNorm: 4739211 1-2 Tablet(s) PO QID as n eeded for pain 06/05/2016 03/17/2017 Inactive Belladonna-Phenobarbital 48 mg tablet,extended release RxNor m: 2 Tablet(s) PO TID 06/05/2016 01/19/2017 Inactive Premarin 0.45 mg tablet RxNorm: 325523 TAKE ONE TABLET BY MOUTH DAILY 05/27/2016 09/23/2016 Inactive Topamax 100 mg tablet RxNorm: 701098 TAKE ONE TABLET BY MOUTH EVERY NIGHT AT BEDTIME 05/27/2016 09/27/2016 Inactive Synthroid 112 mcg tablet RxNorm: 819009 TAKE ONE TABLET BY MOUT H DAILY 05/27/2016 09/23/2016 Inactive metformin ER 500 mg tablet,extended release 24 hr RxNorm: 86 0975 TAKE ONE TABLET BY MOUTH DAILY 05/27/2016 09/23/2016 Inactive Symbicort 160 mcg-4.5 mcg/actuation HFA aerosol inhaler RxNo rm: 0446746 INHALE TWO PUFFS TWO TIMES A DAY 05/27/2016 10/23/2016 Inactive Ventolin HFA 90 mcg/actuation aerosol inhaler RxNorm: 600827 INHALE TWO PUFFS BY MOUTH EVERY 4 HOURS NEEDED 05/21/2016 07/07/2016 Inactive omeprazole 40 mg capsule,delayed release RxNorm: 897277 1 Capsu le(s) PO QD 05/06/2016 08/03/2016 Inactive metformin ER 500 mg tablet,extended release 24 hr RxNorm: 86 0975 TAKE ONE TABLET BY MOUTH DAILY 04/23/2016 05/22/2016 Inactive methocarbamol 750 mg tablet RxNorm: 444281 2 Tablet(s) PO TID as needed for muscle spasm 04/23/2016 09/08/2016 Inactive Synthroid 112 mcg tablet RxNorm: 233820 TAKE ONE TABLET BY MOUT H DAILY 04/23/2016 05/22/2016 Inactive Spiriva with HandiHaler 18 mcg and inhalation capsules RxNor m: 711541 INHALE THE ENTIRE CONTENTS OF 1 CAPSULE ONCE A DAY USING HANDIHALER 04/09/201608/2016 Inactive Diflucan 100 mg tablet RxNorm: 592572 1 Tablet(s) PO QD 04/08/2016 Inactive doxycycline hyclate 100 mg capsule RxNorm: 2608440 1 Capsule(s) PO BID 04/08/2016 04/17/2016 Inactive doxycycline hyclate 100 mg capsule RxNorm: 1148374 1 Capsule(s) PO BID 04/08/2016 04/07/2016 Inactive Diflucan 100 mg tablet RxNorm: 287942 1 Tablet(s) PO QD 04/08/2016 Inactive ondansetron HCl 4 mg tablet RxNorm: 241857 1 Tablet(s) PO Q4H as needed for nausea and vomiting 04/08/2016 09/22/2017 Inactive gabapentin 600 mg tablet RxNorm: 899135 TAKE ONE TABLET BY MOUT H TWICE A DAY 03/24/2016 06/25/2016 Inactive Synthroid 112 mcg tablet RxNorm: 652145 TAKE ONE TABLET BY MOUT H DAILY 02/25/2016 04/22/2016 Inactive Levaquin 500 mg tablet RxNorm: 326398 1 Tablet(s) PO QD 01/23/2016 Inactive prednisone 20 mg tablet RxNorm: 067741 1 Tablet(s) PO T ID for 3 days then 1 po BID for 3 days then one daily for 3 days 01/23/2016 08/25/2016 Inactiv e Sweet P's Ultra Test strips RxNorm: TEST BLOOD SUGAR ONCE DAILY 250.00 01/09/2016 11/04/2017 Inactive methocarbamol 750 mg tablet RxNorm: 776187 2 Tablet(s) PO TID as needed for muscle spasm 01/09/2016 04/23/2016 Inactive lactulose 10 gram/15 mL oral solution RxNorm: 597878 [address](s) PO QD 01/09/2016 09/22/2017 Inactive TAKE 1 TABLESPOON BY MOUTH ONCE DAILY metformin ER 500 mg tablet,extended release 24 hr RxNorm: 86 0975 1 Tablet(s) PO QD 12/26/2015 04/22/2016 Inactive fluoxetine 20 mg capsule RxNorm: 682684 1 Capsule(s) PO QD 12/23/19 16 06/19/2016 Inactive Premarin 0.45 mg tablet RxNorm: 955366 TAKE ONE TABLET BY MOUTH DAILY 12/23/2015 05/20/2016 Inactive fluoxetine 40 mg capsule RxNorm: 588382 1 Capsule(s) PO QD 12/23/19 16 06/19/2016 Inactive TAKE ONE CAPSULE BY MOUTH EV JANKI MORNING azithromycin 500 mg tablet RxNorm: 599319 1 Tablet(s) PO QD 016 12/19/2015 Inactive Zofran 4 mg tablet RxNorm: 579657 1 Tablet(s) PO Q4H prn nausea /vomiting 12/13/2015 03/30/2018 Inactive azithromycin 500 mg tablet RxNorm: 655938 1 Tablet(s) PO QD 016 12/12/2015 Inactive Duragesic 100 mcg/hr transdermal patch RxNorm: 650110 2 Application TD Q48H for pain 12/09/2015 01/07/2016 Inactive oxycodone 10 mg tablet RxNorm: 3873353 1-2 Tablet(s) PO QID as n eeded for pain 12/09/2015 06/04/2016 Inactive Bactroban 2 % topical cream RxNorm: 671812 Application TOP BID 11/2208/25/2016 Inactive doxycycline hyclate 100 mg capsule RxNorm: 7840168 1 Capsule(s) PO BID 12/03/2015 12/12/2015 Inactive Topamax 100 mg tablet RxNorm: 748147 TAKE ONE TABLET BY MOUTH EVERY NIGHT AT BEDTIME 11/25/2015 05/22/2016 Inactive Symbicort 160 mcg-4.5 mcg/actuation HFA aerosol inhaler RxNo rm: 5140294 INHALE TWO PUFFS TWO TIMES A DAY 11/25/2015 05/22/2016 Inactive Synthroid 112 mcg tablet RxNorm: 646155 Tablet(s) TAKE ONE TABLET BY MOUTH DAILY 11/25/2015 02/22/2016 Inactive omeprazole 40 mg capsule,delayed release RxNorm: 697952 1 Capsu le(s) PO QD 11/12/2015 05/05/2016 Inactive oxycodone 10 mg tablet RxNorm: 9997599 1-2 Tablet(s) PO QID as n eeded for pain 11/05/2015 12/08/2015 Inactive Duragesic 100 mcg/hr transdermal patch RxNorm: 484443 2 Application TD Q48H for pain 11/05/2015 12/04/2015 Inactive omeprazole 40 mg capsule,delayed release RxNorm: 089858 1 Capsu le(s) PO QD 10/07/2015 11/11/2015 Inactive Januvia 100 mg tablet RxNorm: 991982 TAKE ONE TABLET BY MOUTH DAILY 09/11/2015 12/25/2015 Inactive Zithromax 500 mg tablet RxNorm: 734974 1 Tablet(s) PO QD 09/10/2015 1 Inactive prednisone 20 mg tablet RxNorm: 708423 1 Tablet(s) PO T ID for 3 days then 1 po BID for 3 days then one daily for 3 days 09/10/2015 08/25/2016 Inactiv e Wellbutrin XL 300 mg 24 hr tablet, extended release RxNorm: 944635 1 Tablet(s) PO QAM 09/10/2015 12/02/2015 Inactive Topamax 100 mg tablet RxNorm: 231784 TAKE ONE TABLET BY MOUTH EVERY NIGHT AT BEDTIME 09/02/2015 11/24/2015 Inactive Synthroid 112 mcg tablet RxNorm: 161950 TAKE ONE TABLET BY MOUT H DAILY 09/02/2015 11/25/2015 Inactive methocarbamol 750 mg tablet RxNorm: 024628 2 Tablet(s) PO TID as needed for muscle spasm 08/15/2015 01/09/2016 Inactive Wellbutrin XL 150 mg 24 hr tablet, extended release RxNorm: 022680 TAKE ONE TABLET BY MOUTH EVERY MORNING 08/13/2015 08/13/2015 Inactive gabapentin 600 mg tablet RxNorm: 527175 1 Tablet(s) PO BID 08/13/20 15 02/08/2016 Inactive Wellbutrin XL 300 mg 24 hr tablet, extended release RxNorm: 237177 1 Tablet(s) PO QAM 08/06/2015 09/09/2015 Inactive Wellbutrin XL 150 mg 24 hr tablet, extended release RxNorm: 770830 1 Tablet(s) PO QAM 07/18/2015 08/05/2015 Inactive prednisone 20 mg tablet RxNorm: 245457 1 Tablet(s) PO BID 07/18/2015 07/22/2015 Inactive doxycycline hyclate 100 mg tablet,delayed release RxNorm: 43 4018 1 Tablet(s) PO BID 07/18/2015 07/27/2015 Inactive pravastatin 40 mg tablet RxNorm: 743920 1 Tablet(s) PO QD NEEDS FASTING LAB 07/15/2015 07/14/2015 Inactive pravastatin 40 mg tablet RxNorm: 600363 1 Tablet(s) PO QD NEEDS FASTING LAB 07/15/2015 01/25/2018 Inactive Ventolin HFA 90 mcg/actuation aerosol inhaler RxNorm: 588673 2 Puff(s) INH Q4H 07/08/2015 07/07/2015 Inactive prn Premarin 0.45 mg tablet RxNorm: 272394 1 Tablet(s) PO QD 07/01/2015 0 12/22/2015 Inactive pravastatin 40 mg tablet RxNorm: 305972 1 Tablet(s) PO QD NEEDS FASTING LAB 06/14/2015 07/15/2015 Inactive Ventolin HFA 90 mcg/actuation aerosol inhaler RxNorm: 9904316 2 Puff(s) INH Q4H 06/06/2015 07/08/2015 Inactive prn albuterol sulfate 2.5 mg/3 mL (0.083 %) solution for n ebulization RxNorm: 366608 1 Unit Dose INH QID 05/30/2015 No Stop Date Active Duragesic 100 mcg/hr transdermal patch RxNorm: 160413 2 Application TD Q48H for pain 04/29/2015 05/28/2015 Inactive gabapentin 600 mg tablet RxNorm: 923003 1 Tablet(s) PO BID 04/11/20 15 08/13/2015 Inactive Onglyza 5 mg tablet RxNorm: 862863 1 Tablet(s) PO QD for blood suga r 04/10/2015 04/15/2015 Inactive [Brand Copay Card: RxBIN:[id number] PCN:CRISTIANA RxGRP:[id number] ID#:[id number]] methocarbamol 750 mg tablet RxNorm: 998882 2 Tablet(s) PO TID as needed for muscle spasm 03/28/2015 08/15/2015 Inactive pravastatin 40 mg tablet RxNorm: 516275 1 Tablet(s) PO QD 03/19/2015 03/18/2015 Inactive pravastatin 40 mg tablet RxNorm: 220419 1 Tablet(s) PO QD 03/19/2015 06/14/2015 Inactive lactulose 10 gram/15 mL oral solution RxNorm: 393297 [address]s) PO QD 03/07/2015 01/09/2016 Inactive TAKE 1 TABLESPOON BY MOUTH ONCE DAILY oxycodone 20 mg tablet RxNorm: 4661311 1 Tablet(s) PO QID as nee ded for pain 03/05/2015 07/08/2015 Inactive Topamax 100 mg tablet RxNorm: 162351 1 Tablet(s) PO QHS TAKE ONE TABLET BY MOUTH AT BEDTIME 02/25/2015 02/12/2019 Inactive metformin ER 500 mg tablet,extended release 24 hr RxNorm: 86 0975 1 Tablet(s) PO QD 02/11/2015 03/04/2015 Inactive take one tablet by mouth every day Daliresp 500 mcg tablet RxNorm: 9916441 1 Tablet(s) PO QD 02/11/2015 08/09/2015 Inactive Endocet 10 mg-325 mg tablet RxNorm: 3322520 1 Tablet(s) PO Q4H as needed for pain 01/23/2015 01/23/2015 Inactive gabapentin 600 mg tablet RxNorm: 123596 1 Tablet(s) PO BID 01/23/20 15 04/11/2015 Inactive methocarbamol 750 mg tablet RxNorm: 816930 2 Tablet(s) PO TID as needed for muscle spasm 01/15/2015 02/13/2015 Inactive fluoxetine 40 mg capsule RxNorm: 905902 1 Capsule(s) PO QD 01/14/20 15 12/23/2015 Inactive TAKE ONE CAPSULE BY MOUTH EV JANKI MORNING fluoxetine 20 mg capsule RxNorm: 319419 1 Capsule(s) PO QD 01/14/20 15 12/23/2015 Inactive Premarin 0.45 mg tablet RxNorm: 178462 1 Tablet(s) PO QD 01/02/2015 0 07/01/2015 Inactive Endocet 10 mg-325 mg tablet RxNorm: 6168002 1-2 Tablet(s) PO Q4H 02/12/2019 Inactive PRN PAIN Duragesic 100 mcg/hr transdermal patch RxNorm: 592009 2 Application TD Q48H for pain 12/25/2014 01/23/2015 Inactive Topamax 100 mg tablet RxNorm: 187691 1 Tablet(s) PO QHS TAKE ONE TABLET BY MOUTH AT BEDTIME 12/25/2014 02/24/2015 Inactive Tudorza Pressair 400 mcg/actuation breath activated RxNorm: 0468059 1 BID INHALE ONE PUFF INTO LUNGS TWO TIMES A DAY 12/17/2014 05/15/2015 Inactive Endocet 10 mg-325 mg tablet RxNorm: 7872074 1-2 Tablet(s) PO Q4H 12/19/2014 Inactive PRN PAIN Duragesic 100 mcg/hr transdermal patch RxNorm: 579031 2 Application TD Q48H for pain 11/20/2014 12/24/2014 Inactive OneTouch Ultra Test strips RxNorm: TEST BLOOD SUGAR ONCE DAILY 250.00 11/16/2014 01/08/2016 Inactive omeprazole 40 mg capsule,delayed release RxNorm: 655503 1 Capsu le(s) PO QD 11/13/2014 11/12/2015 Inactive metformin ER 500 mg tablet,extended release 24 hr RxNorm: 86 0975 1 Tablet(s) PO QD 11/12/2014 02/11/2015 Inactive take one tablet by mouth every day Symbicort 160 mcg-4.5 mcg/actuation HFA aerosol inhaler RxNo rm: 1932986 2 Puff(s) INH BID 11/12/2014 03/11/2015 Inactive INHALE 2 PUFFS O RALLY TWO TIMES A DAY gabapentin 800 mg tablet RxNorm: 392706 1 Tablet(s) PO QD TAKE ONE TABLET BY MOUTH ONCE A DAY 10/22/2014 01/01/2015 Inactive Endocet 10 mg-325 mg tablet RxNorm: 4796000 1-2 Tablet(s) PO Q4H 11/15/2014 Inactive PRN PAIN Duragesic 100 mcg/hr transdermal patch RxNorm: 363490 2 Application TD Q48H for pain 10/17/2014 11/19/2014 Inactive gabapentin 800 mg tablet RxNorm: 282985 1 Tablet(s) PO QD TAKE ONE TABLET BY MOUTH ONCE A DAY 10/04/2014 10/21/2014 Inactive Premarin 0.9 mg tablet RxNorm: 680004 1 Tablet(s) PO QD TAKE ONE TABLET BY MOUTH ONCE A DAY 10/04/2014 01/01/2015 Inactive Spiriva with HandiHaler 18 mcg & inhalation capsules RxNorm: 480099 1 Capsule(s) INH QD 10/03/2014 04/30/2015 Inactive Levaquin 500 mg tablet RxNorm: 054677 1 Tablet(s) PO QD 10/03/2014 Inactive prednisone 20 mg tablet RxNorm: 929327 1 Tablet(s) PO QD 10/03/2014 1 12/09/2013 Inactive Duragesic 100 mcg/hr transdermal patch RxNorm: 778587 2 Application TD Q48H for pain 09/18/2014 10/16/2014 Inactive Endocet 10 mg-325 mg tablet RxNorm: 6817908 1-2 Tablet(s) PO Q4H 10/16/2014 Inactive PRN PAIN Synthroid 112 mcg tablet RxNorm: 205875 1 Tablet(s) QD 09/10/2014 Inactive Synthroid 112 mcg tablet RxNorm: 665788 TAKE ONE TABLET BY MOUTH ONE TIME A DAY. NEEDS LABS 09/10/2014 02/06/2015 Inactive omeprazole 40 mg capsule,delayed release RxNorm: 936870 1 Capsu le(s) PO QD 09/03/2014 11/13/2014 Inactive omeprazole 40 mg capsule,delayed release RxNorm: 375226 1 Capsu le(s) PO QD 09/03/2014 09/02/2014 Inactive Spiriva with HandiHaler 18 mcg & inhalation capsules RxNorm: 859259 1 Capsule(s) INH QD 08/27/2014 10/02/2014 Inactive gabapentin 600 mg tablet RxNorm: 201742 1 Tablet(s) PO BID 08/27/20 14 10/22/2014 Inactive Endocet 10 mg-325 mg tablet RxNorm: 8361507 1-2 Tablet(s) PO Q4H 09/17/2014 Inactive PRN PAIN fentanyl 100 mcg/hr transdermal patch RxNorm: 295538 1 Unit Dos e TD QD 08/21/2014 09/19/2014 Inactive Daliresp 500 mcg tablet RxNorm: 7193125 1 Tablet(s) PO QD 08/13/2014 02/11/2015 Inactive Synthroid 112 mcg tablet RxNorm: 669404 TAKE ONE TABLET BY MOUTH ONE TIME A DAY. NEEDS LABS 08/10/2014 09/10/2014 Inactive Endocet 10 mg-325 mg tablet RxNorm: 2565051 1-2 Tablet(s) PO Q4H 08/17/2014 Inactive PRN PAIN Duragesic 100 mcg/hr transdermal patch RxNorm: 572720 2 Application TD Q48H for pain 07/19/2014 09/17/2014 Inactive fluoxetine 40 mg capsule RxNorm: 571625 1 Capsule(s) PO QD 07/17/20 14 01/14/2015 Inactive TAKE ONE CAPSULE BY MOUTH EV JANKI MORNING fluoxetine 20 mg capsule RxNorm: 068024 1 Capsule(s) PO QD 07/17/20 14 01/14/2015 Inactive Spiriva with HandiHaler 18 mcg & inhalation capsules RxNorm: 015954 1 Capsule(s) INH QD 07/17/2014 08/26/2014 Inactive INHALE CONTENTS OF 1 CAPSULE(S) WITH HANDIHALER ONCE DAILY Zofran 4 mg tablet RxNorm: 322522 1 Tablet(s) PO Q4H prn nausea 07/25/2014 Inactive Synthroid 112 mcg tablet RxNorm: 537313 1 Tablet(s) PO QD 07/09/2014 07/09/2014 Inactive methocarbamol 750 mg tablet RxNorm: 570795 2 Tablet(s) PO TID as needed for muscle spasm 07/09/2014 09/06/2014 Inactive Synthroid 112 mcg tablet RxNorm: 546779 1 Tablet(s) PO QD - nee d labs 07/09/2014 08/07/2014 Inactive Medrol (Aníbal) 4 mg tablets in a dose pack RxNorm: 615950 6 Tablet(s) PO QD --then as directed 07/03/2014 07/08/2014 Inactive Tudorza Pressair 400 mcg/actuation breath activated RxNorm: 5965769 1 Puff(s) INH BID 07/03/2014 12/17/2014 Inactive cefdinir 300 mg capsule RxNorm: 388214 1 Capsule(s) PO BID 07/03/20 14 07/12/2014 Inactive Topamax 100 mg tablet RxNorm: 956452 Tablet(s) TAKE ONE TABLET BY MOUTH AT BEDTIME 07/02/2014 02/25/2015 Inactive Duragesic 100 mcg/hr transdermal patch RxNorm: 047121 2 Application TD Q48H for pain 06/25/2014 07/18/2014 Inactive Endocet 10 mg-325 mg tablet RxNorm: 1591941 1-2 Tablet(s) PO Q4H 07/18/2014 Inactive PRN PAIN metformin ER 500 mg tablet,extended release 24 hr RxNorm: 86 0975 1 Tablet(s) PO QD Needs labs 06/18/2014 07/01/2014 Inactive take one tablet by mouth every day Duragesic 100 mcg/hr transdermal patch RxNorm: 317364 2 Application TD Q48H for pain 05/22/2014 06/24/2014 Inactive Synthroid 112 mcg tablet RxNorm: 478694 1 Tablet(s) PO QD 05/22/2014 07/09/2014 Inactive Endocet 10 mg-325 mg tablet RxNorm: 2718131 1-2 Tablet(s) PO Q4H 06/20/2014 Inactive PRN PAIN Endocet 10 mg-325 mg tablet RxNorm: 5442679 1-2 Tablet(s) PO Q4H 05/21/2014 Inactive PRN PAIN Duragesic 100 mcg/hr transdermal patch RxNorm: 901450 2 Application TD Q48H for pain 04/25/2014 05/21/2014 Inactive Daliresp 500 mcg tablet RxNorm: 3045087 1 Tablet(s) PO QD 04/24/2014 08/13/2014 Inactive Symbicort 160 mcg-4.5 mcg/actuation HFA aerosol inhaler RxNo rm: 7031439 2 Puff(s) INH BID 04/24/2014 08/21/2014 Inactive INHALE 2 PUFFS O RALLY TWO TIMES A DAY metformin ER 500 mg tablet,extended release 24 hr RxNorm: 86 0975 1 Tablet(s) PO QD 04/24/2014 11/12/2014 Inactive TAKE ONE TABLET BY MOUTH EVERY DAY [AttnRPh:Saving Apply/Adjudicate RxGRP:LDMGRP RxBIN:[id number] RxPCN:2012 PCode:01 ID#:[id number]] Symbicort 160 mcg-4.5 mcg/actuation HFA aerosol inhaler RxNo rm: 4885714 2 Puff(s) INH BID 04/24/2014 11/12/2014 Inactive INHALE 2 PUFFS O RALLY TWO TIMES A DAY Premarin 0.9 mg tablet RxNorm: 816223 1 Tablet(s) PO QD 04/24/2014 Inactive TAKE ONE TABLET BY MOUTH EVERY DAY metformin ER 500 mg tablet,extended release 24 hr RxNorm: 86 0975 1 Tablet(s) PO QD Needs labs 04/24/2014 06/18/2014 Inactive TAKE ONE TABLET BY MOUTH EVERY DAY [AttnRPh:Saving Apply/Adjudicate RxGRP:LDMGRP RxBIN:[id number] RxPCN:2012 PCode:01 ID#:[id number]] gabapentin 800 mg tablet RxNorm: 238770 1 Tablet(s) PO QD 04/24/2014 10/04/2014 Inactive TAKE ONE TABLET BY MOUTH EVERY DAY Topamax 100 mg tablet RxNorm: 710610 1 Tablet(s) PO QHS 04/17/2014 Inactive Topamax 100 mg tablet RxNorm: 521017 TAKE ONE TABLET BY MOUTH A T BEDTIME 04/17/2014 07/01/2014 Inactive Tudorza Pressair 400 mcg/actuation breath activated RxNorm: 5159527 1 Puff(s) INH BID 04/11/2014 07/02/2014 Inactive Duragesic 100 mcg/hr transdermal patch RxNorm: 023837 2 Application TD Q48H for pain 03/27/2014 04/24/2014 Inactive Endocet 10 mg-325 mg tablet RxNorm: 5674987 1-2 Tablet(s) PO Q4H 04/24/2014 Inactive PRN PAIN Robaxin 750 mg tablet RxNorm: 880764 2 Tablet(s) PO TID as need ed for spasm 02/23/2014 03/28/2015 Inactive Duragesic 100 mcg/hr transdermal patch RxNorm: 917623 2 Application TD Q48H for pain 02/23/2014 No Stop Date Active Endocet 10 mg-325 mg tablet RxNorm: 4032168 1-2 Tablet(s) PO Q4H 03/23/2014 Inactive PRN PAIN Synthroid 112 mcg tablet RxNorm: 129065 1 Tablet(s) PO QD TAKE ONE TABLET BY MOUTH EVERY DAY 02/15/2014 05/22/2014 Inactive Zithromax 500 mg tablet RxNorm: 361062 1 Tablet(s) PO QD 01/30/2014 0 02/05/2014 Inactive Diflucan 100 mg tablet RxNorm: 472392 1 Tablet(s) PO QD 01/30/2014 Inactive prednisone 20 mg tablet RxNorm: 809091 1 Tablet(s) PO BID 01/30/2014 02/05/2014 Inactive fluoxetine 40 mg capsule RxNorm: 807919 1 Capsule(s) PO QD 01/23/20 14 07/16/2014 Inactive TAKE ONE CAPSULE BY MOUTH EV JANKI MORNING fluoxetine 40 mg capsule RxNorm: 619034 1 Capsule(s) PO QD 01/23/20 14 07/17/2014 Inactive TAKE ONE CAPSULE BY MOUTH EV JANKI MORNING cefdinir 300 mg capsule RxNorm: 197197 1 Capsule(s) PO BID 01/16/20 14 01/29/2014 Inactive Zithromax 500 mg tablet RxNorm: 463210 1 Tablet(s) PO QD 01/16/2014 0 01/22/2014 Inactive prednisone 20 mg tablet RxNorm: 906267 1 Tablet(s) PO BID 01/16/2014 01/22/2014 Inactive Spiriva with HandiHaler 18 mcg and inhalation capsules RxNor m: 138402 1 Capsule(s) INH QD 12/18/2013 07/17/2014 Inactive INHALE CONTENT S OF 1 CAPSULE(S) WITH HANDIHALER ONCE DAILY fluoxetine 20 mg capsule RxNorm: 897035 1 Capsule(s) PO QD 12/18/19 14 06/15/2014 Inactive Spiriva with HandiHaler 18 mcg & inhalation capsules RxNorm: 329227 1 Capsule(s) INH QD 12/18/2013 06/15/2014 Inactive INHALE CONTENTS OF 1 CAPSULE(S) WITH HANDIHALER ONCE DAILY fluoxetine 20 mg capsule RxNorm: 486896 1 Capsule(s) PO QD 12/18/19 14 07/17/2014 Inactive cefdinir 300 mg capsule RxNorm: 058348 2 Capsule(s) PO QD 12/12/2013 12/21/2013 Inactive Duragesic 100 mcg/hr transdermal patch RxNorm: 811425 2 Application TD Q48H for pain 12/08/2013 12/07/2013 Inactive Topamax 100 mg tablet RxNorm: 194794 1 Tablet(s) PO QHS 12/04/2013 Inactive Endocet 10 mg-325 mg tablet RxNorm: 2334292 1-2 Tablet(s) PO Q4H 12/26/2013 Inactive PRN PAIN Robaxin 750 mg tablet RxNorm: 427468 2 Tablet(s) PO TID as need ed for spasm 11/07/2013 01/05/2014 Inactive gabapentin 800 mg tablet RxNorm: 800737 1 Tablet(s) PO QD 10/16/2013 04/24/2014 Inactive TAKE ONE TABLET BY MOUTH EVERY DAY Symbicort 160 mcg-4.5 mcg/actuation HFA aerosol inhaler RxNo rm: 2471383 2 Puff(s) INH BID 10/16/2013 04/24/2014 Inactive INHALE 2 PUFFS O RALLY TWO TIMES A DAY Premarin 0.9 mg tablet RxNorm: 358234 1 Tablet(s) PO QD 10/16/2013 Inactive TAKE ONE TABLET BY MOUTH EVERY DAY metformin ER 500 mg tablet,extended release 24 hr RxNorm: 86 0975 1 Tablet(s) PO QD 10/16/2013 04/24/2014 Inactive TAKE ONE TABLET BY MOUTH EVERY DAY Daliresp 500 mcg tablet RxNorm: 2154770 1 Tablet(s) PO QD 10/16/2013 04/24/2014 Inactive Robaxin 750 mg tablet RxNorm: 177519 2 Tablet(s) PO TID as need ed for spasm 10/10/2013 11/06/2013 Inactive Duragesic 100 mcg/hr transdermal patch RxNorm: 757162 2 Application TD Q48H for pain 10/09/2013 No Stop Date Active Soma 350 mg tablet RxNorm: 187960 1 Tablet(s) PO TID 09/27/201310/09 Inactive TAKE ONE TABLET BY MOUTH THREE TIMES A D AY lactulose 10 gram/15 mL oral solution RxNorm: 646753 [address](s) PO QD 09/13/2013 03/07/2015 Inactive TAKE 1 TABLESPOON BY MOUTH ONCE DAILY Duragesic 100 mcg/hr transdermal patch RxNorm: 579939 2 Application TD Q48H for pain 09/06/2013 No Stop Date Active Endocet 10 mg-325 mg tablet RxNorm: 9231392 1-2 Tablet(s) PO Q4H 09/27/2013 Inactive PRN PAIN lancets 28 gauge RxNorm: Miscellaneous As needed for blo od glucose sticks 08/24/2013 No Stop Date Active 16.2 mg-0.1037 mg-0.0194 mg tablet RxNorm: 5359793 Tablet(s) PO PRN for gas and cramping 08/24/2013 01/19/2017 Inactive TAKE TWO TABLET S BY MOUTH THREE TIMES A DAY NEEDED FOR GAS AND CRAMPING Topamax 100 mg tablet RxNorm: 987150 1 Tablet(s) PO QHS 07/31/2013 Inactive Diflucan 100 mg tablet RxNorm: 710225 1 Tablet(s) PO QD 07/27/2013 Inactive cefdinir 300 mg capsule RxNorm: 027219 1 Capsule(s) PO BID 07/26/20 13 08/08/2013 Inactive Daliresp 500 mcg tablet RxNorm: 9585829 1 Tablet(s) PO QD 07/25/2013 10/15/2013 Inactive fluoxetine 40 mg capsule RxNorm: 496512 1 Capsule(s) PO QD 07/25/20 13 01/22/2014 Inactive TAKE ONE CAPSULE BY MOUTH EV JANKI MORNING Senokot-S 8.6 mg-50 mg tablet RxNorm: 5559389 1 Tablet(s) PO BID 10/25/2013 Inactive doxycycline hyclate 100 mg capsule RxNorm: 1872088 1 Capsule(s) PO BID 06/28/2013 07/07/2013 Inactive prednisone 20 mg tablet RxNorm: 435967 1 Tablet(s) PO BID 06/28/2013 07/04/2013 Inactive Zofran 4 mg tablet RxNorm: 670863 1 Tablet(s) PO Q4H prn nausea 03/201307/05/2013 Inactive Spiriva with HandiHaler 18 mcg & inhalation capsules RxNorm: 299774 1 Capsule(s) INH QD 06/26/2013 12/18/2013 Inactive INHALE CONTENTS OF 1 CAPSULE(S) WITH HANDIHALER ONCE DAILY Synthroid 112 mcg tablet RxNorm: 774888 1 Tablet(s) PO QD TAKE ONE TABLET BY MOUTH EVERY DAY 06/19/2013 02/15/2014 Inactive fluoxetine 20 mg capsule RxNorm: 179717 1 Capsule(s) PO QD 06/19/20 13 12/18/2013 Inactive Ventolin HFA 90 mcg/actuation Aerosol Inhaler RxNorm: 6834395 2 Puff(s) INH Q4H 06/05/2013 No Stop Date Active prn Soma 350 mg tablet RxNorm: 736283 1 Tablet(s) PO TID 06/05/201307/04 Inactive TAKE ONE TABLET BY MOUTH THREE TIMES A D AY prednisone 20 mg tablet RxNorm: 206335 1 Tablet(s) PO QD 05/31/2013 0 06/06/2013 Inactive Topamax 100 mg tablet RxNorm: 400560 1 Tablet(s) PO QHS 05/22/2013 Inactive Levaquin 500 mg tablet RxNorm: 874553 1 Tablet(s) PO QD 05/03/2013 Inactive Diflucan 100 mg tablet RxNorm: 724544 1 Tablet(s) PO QD 05/03/2013 Inactive Daliresp 500 mcg tablet RxNorm: 8640810 1 Tablet(s) PO QD 05/01/2013 07/24/2013 Inactive Daliresp 500 mcg tablet RxNorm: 3316627 1 Tablet(s) PO QD 05/01/2013 04/30/2013 Inactive gabapentin 800 mg tablet RxNorm: 813560 1 Tablet(s) PO QD 04/10/2013 10/06/2013 Inactive TAKE ONE TABLET BY MOUTH EVERY DAY metformin ER 500 mg tablet,extended release 24 hr RxNorm: 86 0977 1 Tablet(s) PO QD 04/10/2013 10/06/2013 Inactive TAKE ONE TABLET BY MOUTH EVERY DAY Premarin 0.9 mg tablet RxNorm: 605576 1 Tablet(s) PO QD 04/10/2013 Inactive TAKE ONE TABLET BY MOUTH EVERY DAY Symbicort 160 mcg-4.5 mcg/actuation HFA aerosol inhaler RxNo rm: 2802290 2 Puff(s) INH BID 04/10/2013 10/06/2013 Inactive INHALE 2 PUFFS O RALLY TWO TIMES A DAY Synthroid 112 mcg tablet RxNorm: 011391 1 Tablet(s) PO QD TAKE ONE TABLET BY MOUTH EVERY DAY 04/10/2013 06/18/2013 Inactive Ventolin HFA 90 mcg/actuation Aerosol Inhaler RxNorm: 426804 2 Puff(s) INH Q4H 04/10/2013 No Stop Date Active prn fentanyl 100 mcg/hr transdermal patch RxNorm: 113320 1 Unit Dos e TD QD 04/03/2013 05/02/2013 Inactive Endocet 10 mg-325 mg tablet RxNorm: 4195184 1-2 Tablet(s) PO Q4H 05/02/2013 Inactive PRN PAIN Topamax 100 mg tablet RxNorm: 446767 1 Tablet(s) PO QHS 03/13/2013 Inactive Reglan 10 mg tablet RxNorm: 204610 1 Tablet(s) PO QID b efore meals and at bedtime 03/13/2013 04/09/2015 Inactive fluoxetine 20 mg capsule RxNorm: 454354 1 Capsule(s) PO QD 02/28/20 13 05/27/2013 Inactive Ventolin HFA 90 mcg/actuation Aerosol Inhaler RxNorm: 557037 2 Puff(s) INH Q4H 02/13/2013 No Stop Date Active prn fluoxetine 40 mg capsule RxNorm: 737498 1 Capsule(s) PO QD 01/31/20 13 07/24/2013 Inactive TAKE ONE CAPSULE BY MOUTH EV JANKI MORNING Soma 350 mg tablet RxNorm: 262132 1 Tablet(s) PO TID 01/20/201302/18 Inactive TAKE ONE TABLET BY MOUTH THREE TIMES A D AY Endocet 10 mg-325 mg tablet RxNorm: 2974361 1-2 Tablet(s) PO Q4H 02/06/2013 Inactive PRN PAIN MS Contin 200 mg tablet,extended release RxNorm: 724056 1 Table t(s) PO BID 01/18/2013 02/06/2013 Inactive Ventolin HFA 90 mcg/actuation Aerosol Inhaler RxNorm: 937404 2 Puff(s) INH Q4H 01/04/2013 No Stop Date Active prn Spiriva with HandiHaler 18 mcg & inhalation capsules RxNorm: 924069 1 Capsule(s) INH QD 12/29/2012 06/25/2013 Inactive INHALE CONTENTS OF 1 CAPSULE(S) WITH HANDIHALER ONCE DAILY Spiriva with HandiHaler 18 mcg & inhalation capsules RxNorm: 752490 1 Capsule(s) INH QD 12/26/2012 12/28/2012 Inactive INHALE CONTENTS OF 1 CAPSULE(S) WITH HANDIHALER ONCE DAILY Synthroid 112 mcg tablet RxNorm: 567689 Tablet(s) PO TA KE ONE TABLET BY MOUTH EVERY DAY 12/26/2012 04/09/2013 Inactive Endocet 10 mg-325 mg tablet RxNorm: 4680991 1-2 Tablet(s) PO Q4H 01/17/2013 Inactive PRN PAIN MS Contin 200 mg tablet,extended release RxNorm: 409742 1 Table t(s) PO BID 12/21/2012 01/17/2013 Inactive fluoxetine 20 mg capsule RxNorm: 430182 1 Capsule(s) PO QD 12/06/19 13 02/26/2013 Inactive Synthroid 112 mcg tablet RxNorm: 253075 1 Tablet(s) PO QD 12/06/2012 02/12/2019 Inactive TAKE ONE TABLET BY MOUTH EVERY DAY Ventolin HFA 90 mcg/actuation Aerosol Inhaler RxNorm: 779303 2 Puff(s) INH Q4H 12/06/2012 No Stop Date Active prn Reglan 10 mg tablet RxNorm: 856143 1 Tablet(s) PO QID b efore meals and at bedtime 11/24/2012 03/12/2013 Inactive Topamax 100 mg tablet RxNorm: 347306 1 Tablet(s) PO QHS 11/16/2012 Inactive Ventolin HFA 90 mcg/actuation Aerosol Inhaler RxNorm: 360816 2 Puff(s) INH Q4H 11/09/2012 No Stop Date Active prn gabapentin 800 mg tablet RxNorm: 652340 1 Tablet(s) PO QD 10/27/2012 04/09/2013 Inactive TAKE ONE TABLET BY MOUTH EVERY DAY metformin ER 500 mg tablet,extended release 24 hr RxNorm: 86 0977 1 Tablet(s) PO QD 10/27/2012 04/09/2013 Inactive TAKE ONE TABLET BY MOUTH EVERY DAY Symbicort 160 mcg-4.5 mcg/actuation HFA Aerosol Inhaler RxNo rm: 5572868 2 Puff(s) INH BID 10/27/2012 04/09/2013 Inactive INHALE 2 PUFFS O RALLY TWO TIMES A DAY Premarin 0.9 mg tablet RxNorm: 905431 1 Tablet(s) PO QD 10/27/2012 Inactive TAKE ONE TABLET BY MOUTH EVERY DAY Endocet 10 mg-325 mg tablet RxNorm: 8368609 1-2 Tablet(s) PO Q4H 11/24/2012 Inactive PRN PAIN MS Contin 200 mg tablet,extended release RxNorm: 597513 1 Table t(s) PO BID 10/26/2012 11/24/2012 Inactive Soma 350 mg tablet RxNorm: 442960 1 Tablet(s) PO TID 10/04/201211/02 Inactive TAKE ONE TABLET BY MOUTH THREE TIMES A D AY Ventolin HFA 90 mcg/actuation Aerosol Inhaler RxNorm: 314768 2 Puff(s) INH Q4H 10/03/2012 No Stop Date Active prn Daliresp 500 mcg tablet RxNorm: 2162964 1 Tablet(s) PO QD 09/28/2012 09/27/2012 Inactive Daliresp 500 mcg tablet RxNorm: 7345694 1 Tablet(s) PO QD 09/28/2012 04/25/2013 Inactive fluoxetine 20 mg capsule RxNorm: 759950 1 Capsule(s) PO QD 09/05/2012/06/2012 Inactive Topamax 50 mg tablet RxNorm: 235674 Tablet(s) PO for 1w k then 1 po q HS for 1wk then 2 po q HS 08/29/2012 09/27/2012 Inactive TAKE 1/2 TABLET BY MOUTH AT BEDTIME FOR 1 WEEK, THEN 1 TABLET AT BEDTIME FOR 1 WEEK, THEN 2 TABLETS AT BEDTIME Topamax 100 mg tablet RxNorm: 700398 1 Tablet(s) PO QHS 08/29/2012 Inactive Ventolin HFA 90 mcg/actuation Aerosol Inhaler RxNorm: 873731 2 Puff(s) INH Q4H 08/19/2012 No Stop Date Active prn Ventolin HFA 90 mcg/actuation Aerosol Inhaler RxNorm: 448150 2 Puff(s) INH Q4H 08/15/2012 No Stop Date Active prn Synthroid 112 mcg tablet RxNorm: 950004 1 Tablet(s) PO QD 08/10/2012 11/07/2012 Inactive TAKE ONE TABLET BY MOUTH EVERY DAY Synthroid 112 mcg tablet RxNorm: 751314 1 Tablet(s) PO QD 08/01/2012 08/09/2012 Inactive TAKE ONE TABLET BY MOUTH EVERY DAY Reglan 10 mg tablet RxNorm: 856032 1 Tablet(s) PO QID b efore meals and at bedtime 08/01/2012 11/23/2012 Inactive fluoxetine 40 mg capsule RxNorm: 652343 1 Capsule(s) PO QD 08/01/20 12 01/27/2013 Inactive TAKE ONE CAPSULE BY MOUTH EV JANKI MORNING Ventolin HFA 90 mcg/actuation Aerosol Inhaler RxNorm: 764975 2 Puff(s) INH Q4H 08/01/2012 No Stop Date Active prn Soma 350 mg tablet RxNorm: 479384 1 Tablet(s) PO TID 07/20/201208/18 Inactive TAKE ONE TABLET BY MOUTH THREE TIMES A D AY Spiriva with HandiHaler 18 mcg & inhalation capsules RxNorm: 257754 1 Capsule(s) INH 07/01/2012 12/25/2012 Inactive INHALE CONTENTS OF 1 CAPSULE(S) WITH HANDIHALER ONCE DAILY Zithromax 250 mg Tab RxNorm: 227339 2 Tablet(s) PO QD 06/28/201206/22 Inactive MS Contin 200 mg tablet,extended release RxNorm: 870191 1 Table t(s) PO BID 06/28/2012 07/27/2012 Inactive Endocet 10 mg-325 mg tablet RxNorm: 3699835 1-2 Tablet(s) PO Q4H 07/27/2012 Inactive PRN PAIN Topamax 100 mg tablet RxNorm: 295171 1 Tablet(s) PO QHS 06/28/2012 Inactive 16.2 mg-0.1037 mg-0.0194 mg tablet RxNorm: 3393985 Tablet(s) PO PRN for gas and cramping 06/08/2012 08/23/2013 Inactive TAKE TWO TABLET S BY MOUTH THREE TIMES A DAY NEEDED FOR GAS AND CRAMPING Ventolin HFA 90 mcg/actuation Aerosol Inhaler RxNorm: 647726 2 Puff(s) INH Q4H 05/23/2012 No Stop Date Active prn Ventolin HFA 90 mcg/actuation Aerosol Inhaler RxNorm: 587357 2 Puff(s) INH Q4H 05/11/2012 No Stop Date Active prn Synthroid 112 mcg tablet RxNorm: 309052 1 Tablet(s) PO QD 05/09/2012 07/31/2012 Inactive TAKE ONE TABLET BY MOUTH EVERY DAY gabapentin 800 mg tablet RxNorm: 052637 1 Tablet(s) PO QD 05/09/2012 10/26/2012 Inactive TAKE ONE TABLET BY MOUTH EVERY DAY fluoxetine 40 mg capsule RxNorm: 618197 1 Capsule(s) PO QD 05/09/2007/31/2012 Inactive TAKE ONE CAPSULE BY MOUTH EV JANKI MORNING metformin ER 500 mg tablet,extended release 24 hr RxNorm: 86 0977 1 Tablet(s) PO QD 05/09/2012 10/26/2012 Inactive TAKE ONE TABLET BY MOUTH EVERY DAY Premarin 0.9 mg tablet RxNorm: 887565 1 Tablet(s) PO QD 05/09/2012 Inactive TAKE ONE TABLET BY MOUTH EVERY DAY Symbicort 160 mcg-4.5 mcg/actuation HFA Aerosol Inhaler RxNo rm: 0174812 2 Puff(s) INH BID 05/09/2012 10/26/2012 Inactive INHALE 2 PUFFS O RALLY TWO TIMES A DAY Endocet 10 mg-325 mg Tab RxNorm: 3299142 1-2 Tablet(s) PO Q4H 04/2705/26/2012 Inactive PRN PAIN MS Contin 200 mg Tab RxNorm: 575135 1 Tablet(s) PO BID 04/26/201202/2012 Inactive Ventolin HFA 90 mcg/actuation Aerosol Inhaler RxNorm: 647373 2 Puff(s) INH Q4H 04/25/2012 05/10/2012 Inactive prn Soma 350 mg tablet RxNorm: 936852 2 Tablet(s) PO TID 04/19/201207/19 Inactive TAKE ONE TABLET BY MOUTH THREE TIMES A D AY Ventolin HFA 90 mcg/actuation Aerosol Inhaler RxNorm: 325128 2 Puff(s) INH Q4H 04/12/2012 04/24/2012 Inactive prn Reglan 10 mg tablet RxNorm: 272586 1 Tablet(s) PO QID b efore meals and at bedtime 04/11/2012 07/31/2012 Inactive MS Contin 200 mg Tab RxNorm: 479364 1 Tablet(s) PO BID 03/30/201202/2012 Inactive Endocet 10 mg-325 mg Tab RxNorm: 3846554 1-2 Tablet(s) PO Q4H 03/3004/26/2012 Inactive PRN PAIN MS Contin 200 mg Tab RxNorm: 589759 1 Tablet(s) PO BID 03/02/201206/2012 Inactive Endocet 10 mg-325 mg Tab RxNorm: 9482892 1-2 Tablet(s) PO Q4H 03/0203/29/2012 Inactive PRN PAIN Daliresp 500 mcg tablet RxNorm: 8746199 1 Tablet(s) PO QD 03/01/2012 09/28/2012 Inactive MS Contin 200 mg Tab RxNorm: 861901 1 Tablet(s) PO BID 02/02/201208/2012 Inactive Endocet 10 mg-325 mg Tab RxNorm: 3864424 1-2 Tablet(s) PO Q4H 02/0103/01/2012 Inactive PRN PAIN fluoxetine 40 mg capsule RxNorm: 552221 1 Capsule(s) PO QD 02/02/2008/01/2012 Inactive TAKE ONE CAPSULE BY MOUTH EV JANKI MORNING Synthroid 112 mcg Tab RxNorm: 662979 1 Tablet(s) PO QD 01/18/2012 Inactive TAKE ONE TABLET BY MOUTH EVERY DAY lactulose 10 gram/15 mL oral solution RxNorm: 886977 [address]s) PO QD 01/18/2012 No Stop Date Active TAKE 1 TABLESPOON BY MOUTH ONCE DAILY Ventolin HFA 90 mcg/actuation Aerosol Inhaler RxNorm: 587178 2 Puff(s) INH Q4H 01/18/2012 04/11/2012 Inactive prn MS Contin 200 mg Tab RxNorm: 986183 1 Tablet(s) PO BID 01/05/201210/2012 Inactive Endocet 10 mg-325 mg Tab RxNorm: 0183011 1-2 Tablet(s) PO Q4H 01/0502/01/2012 Inactive PRN PAIN ProAir HFA 90 mcg/Actuation Aerosol Inhaler RxNorm: 233768 2 Pu ff(s) INH Q4H 12/21/2011 No Stop Date Active prn for wheezing or shortness of breath Spiriva with HandiHaler 18 mcg & inhalation Caps RxNorm: 580 261 1 Capsule(s) INH 12/21/2011 06/30/2012 Inactive INHALE CONTENTS OF 1 CAPSULE(S) WITH HANDIHALER ONCE DAILY Reglan 10 mg Tab RxNorm: 779390 1 Tablet(s) PO QID before meals and at bedtime 12/21/2011 04/10/2012 Inactive Synthroid 112 mcg Tab RxNorm: 373722 1 Tablet(s) PO QD 12/21/2011 Inactive TAKE ONE TABLET BY MOUTH EVERY DAY Endocet 10 mg-325 mg Tab RxNorm: 6932785 1-2 Tablet(s) PO Q4H 11/2512/24/2011 Inactive PRN PAIN MS Contin 200 mg Tab RxNorm: 558903 1 Tablet(s) PO BID 11/25/201112/2011 Inactive lactulose 10 gram/15 mL Oral Soln RxNorm: 069326 Milliliter(s) PO 1 No Stop Date Active TAKE 1 TABLESPOON BY MOUTH O NCE DAILY lactulose 10 gram/15 mL Oral Soln RxNorm: 604251 Milliliter(s) PO 1 12/12/2010 11/20/2011 Inactive TAKE 1 TABLESPOON BY MOUTH O NCE DAILY Premarin 0.9 mg Tab RxNorm: 338789 1 Tablet(s) PO QD 10/12/201105/08 Inactive TAKE ONE TABLET BY MOUTH EVERY DAY fluoxetine 20 mg capsule RxNorm: 364233 1 Capsule(s) PO QD 10/12/2009/05/2012 Inactive TAKE ONE CAPSULE BY MOUTH EV JANKI DAY Synthroid 112 mcg Tab RxNorm: 089328 1 Tablet(s) PO QD 10/12/2011 Inactive TAKE ONE TABLET BY MOUTH EVERY DAY metformin ER 500 mg 24 hr Tab RxNorm: 522730 1 Tablet(s) PO QD 09/2311/10/2011 Inactive TAKE ONE TABLET BY MOUTH GLYNN RY DAY Synthroid 112 mcg Tab RxNorm: 247052 1 Tablet(s) PO QD 10/12/2011 Inactive TAKE ONE TABLET BY MOUTH EVERY DAY metformin ER 500 mg 24 hr Tab RxNorm: 237076 1 Tablet(s) PO QD 09/2310/11/2011 Inactive TAKE ONE TABLET BY MOUTH GLYNN RY DAY Prevacid 30 mg Cap RxNorm: 871189 Capsule(s) PO 10/12/2011 01/25/2012 Inactive TAKE ONE CAPSULE BY MOUTH EVERY DAY Symbicort 160 mcg-4.5 mcg/actuation HFA Aerosol Inhaler RxNo rm: 6271186 2 Puff(s) INH BID 10/12/2011 05/08/2012 Inactive INHALE 2 PUFFS O RALLY TWO TIMES A DAY gabapentin 800 mg Tab RxNorm: 696586 1 Tablet(s) PO QD 10/12/2011 Inactive TAKE ONE TABLET BY MOUTH EVERY DAY MS Contin 200 mg Tab RxNorm: 779217 1 Tablet(s) PO BID 09/23/201111/2010 Inactive Endocet 10 mg-325 mg Tab RxNorm: 9675106 1-2 Tablet(s) PO Q4H 09/2310/22/2011 Inactive PRN PAIN Endocet 10 mg-325 mg Tab RxNorm: 0226763 1-2 Tablet(s) PO Q4H 08/2109/19/2011 Inactive PRN PAIN MS Contin 200 mg Tab RxNorm: 286748 1 Tablet(s) PO BID 08/21/2011 Inactive Diflucan 100 mg Tab RxNorm: 003459 1 Tablet(s) PO QD 08/10/201108/16 Inactive cefdinir 300 mg Cap RxNorm: 892683 2 Capsule(s) PO QD 08/10/201107/24 Inactive Reglan 10 mg Tab RxNorm: 292752 1 Tablet(s) PO AC & HS 07/15/2011 Inactive Endocet 10 mg-325 mg Tab RxNorm: 1056976 1-2 Tablet(s) PO Q4H 07/1508/13/2011 Inactive PRN PAIN One Touch Ultra Test strips RxNorm: Miscellaneous BID 06/11/2011 1 01/16/2014 Inactive TEST TWO TIMES A DAY lactulose 10 gram/15 mL Oral Soln RxNorm: 725693 Milliliter(s) PO 0 06/10/2011 10/11/2011 Inactive TAKE 1 TABLESPOON BY MOUTH O NCE DAILY Chantix Continuing Month Aníbal 1 mg Tab RxNorm: 572648 Tablet(s) PO 0 06/10/2011 11/02/2011 Inactive TAKE DIRECTED - PER [employer] INSTRUCTIONS fluoxetine 40 mg Cap RxNorm: 535095 Capsule(s) PO 06/10/2011 02/02/20 12 Inactive TAKE ONE CAPSULE BY MOUTH EVERY MORNING Chantix Continuing Month Aníbal 1 mg Tab RxNorm: 119486 Ta blet(s) PO TAKE DIRECTED - PER PACKAGE INSTRUCTIONS 05/13/2011 06/09/2011 Inactive Soma 350 mg Tab RxNorm: 676457 Tablet(s) PO TAKE ON E TABLET BY MOUTH THREE TIMES A DAY 05/13/2011 04/18/2012 Inactive Chantix Continuing Month Aníbal 1 mg Tab RxNorm: 426603 Ta blet(s) PO as directed per package instructions. 04/22/2011 05/12/2011 Inactive Symbicort 160 mcg-4.5 mcg/Actuation HFA Aerosol Inhaler RxNo rm: [id number] HFA Aerosol Inhaler INH INHALE 2 PUFFS ORALLY TWO TIMES A DAY 04/13/2011 Inactive Synthroid 112 mcg Tab RxNorm: 877342 Tablet(s) PO TAKE ONE TABLET BY MOUTH EVERY DAY 04/13/2011 10/12/2011 Inactive Premarin 0.9 mg Tab RxNorm: 462183 Tablet(s) PO TAKE ON E TABLET BY MOUTH EVERY DAY 04/13/2011 10/12/2011 Inactive gabapentin 800 mg Tab RxNorm: 458441 Tablet(s) PO TAKE ONE TABLET BY MOUTH EVERY DAY 04/13/2011 10/12/2011 Inactive Prevacid 30 mg Cap RxNorm: 121010 1 Capsule(s) PO QD 04/13/201110/11 Inactive Spiriva with HandiHaler 18 mcg & inhalation Caps RxNorm: 580 261 Capsule(s) INH INHALE CONTENTS OF 1 CAPSULE(S) WITH HANDIHALER ONCE DAILY 04/13/2011 12/21/2011 Inactive metformin ER 500 mg 24 hr Tab RxNorm: 982538 Tablet(s) PO TAKE ONE TABLET BY MOUTH EVERY DAY 04/13/2011 10/12/2011 Inactive Soma 350 mg Tab RxNorm: 331802 1 Tablet(s) PO QID 03/30/2011 02/13/20 19 Inactive fluoxetine 20 mg Cap RxNorm: 958487 Capsule(s) PO TAKE ONE CAPSULE BY MOUTH EVERY DAY 03/25/2011 10/12/2011 Inactive cefdinir 300 mg Cap RxNorm: 412196 2 Capsule(s) PO QD 03/19/201105/2011 Inactive 16.2 mg-0.1037 mg-0.0194 mg Tab RxNorm: 4804344 2 Tablet(s) PO TID PRN for gas and cramping 03/16/2011 07/13/2011 Inactive Soma 350 mg Tab RxNorm: 312910 2 Tablet(s) PO TID 03/16/2011 03/29/20 11 Inactive Chantix Starting Month Aníbal 0.5 mg (11)-1 mg (3x14) Tab s in a Dose Pack RxNorm: 195338 Tablet(s) PO as directed 03/02/2011 No Stop Date Active diazepam 10 mg Tab RxNorm: 633484 1 Tablet(s) PO BID 02/10/201101/19 Inactive Zofran 4 mg tablet RxNorm: 401516 1 Tablet(s) PO Q4H prn nausea 02/16/2011 Inactive Diflucan 100 mg Tab RxNorm: 137306 1 Tablet(s) PO QD 01/18/201101/24 Inactive Premarin 0.625 mg/g Vaginal Cream RxNorm: 401360 VAG In sert 1gm vaginally at bedtime 3 times weekly 01/18/2011 02/12/2019 Inactive loratadine 10 mg Tab RxNorm: 8609500 1 Tablet(s) PO QD 12/17/201003/2012 Inactive Spiriva with HandiHaler 18 mcg & inhalation Caps RxNorm: 580 261 1 Capsule(s) INH QD 12/17/2010 04/12/2011 Inactive Diflucan 100 mg Tab RxNorm: 121471 1 Tablet(s) PO QD 12/17/201012/23 Inactive diazepam 10 mg Tab RxNorm: 461745 1 Tablet(s) PO BID and PRN 201002/12/2019 Inactive One Touch Ultra Test Strips RxNorm: InVt BID Zainab t blood sugar at least twice daily. 11/11/2010 06/11/2011 Inactive fluoxetine 40 mg Cap RxNorm: 569378 1 Capsule(s) PO QAM 11/11/2010 Inactive diazepam 10 mg Tab RxNorm: 430162 1 Tablet(s) PO BID and PRN 200911/12/2010 Inactive Bactrim DS 800 mg-160 mg Tab RxNorm: 478249 1 Tablet(s) PO BID 09/2210/15/2010 Inactive fluoxetine 20 mg Cap RxNorm: 185008 1 Capsule(s) PO QD 10/02/201008/2011 Inactive Bactrim DS 800 mg-160 mg Tab RxNorm: 243231 1 Tablet(s) PO BID 01/201010/03/2010 Inactive Zofran 4 mg Tab RxNorm: 831683 1 Tablet(s) PO Q4H prn nausea 200910/16/2010 Inactive 16.2 mg-0.1037 mg-0.0194 mg Tab RxNorm: 4565071 2 Tablet(s) PO TID PRN for gas and cramping 09/17/2010 10/21/2010 Inactive Gabapentin 800 mg Tab RxNorm: 120385 1 Tablet(s) PO QD 09/16/2010 Inactive ProAir HFA 90 mcg/Actuation Aerosol Inhaler RxNorm: 633511 2 Puff(s) INH Q4H prn shortness of breath 09/15/2010 12/13/2010 Inactive gabapentin 800 mg Tab RxNorm: 825959 1 Tablet(s) PO QD 09/15/2010 Inactive Prevacid 30 mg Cap RxNorm: 455081 1 Capsule(s) PO QD 09/15/201004/12 Inactive loratadine 10 mg Tab RxNorm: 5108031 1 Tablet(s) PO QD 09/15/2010 Inactive Premarin 0.9 mg Tab RxNorm: 770498 1 Tablet(s) PO QD 09/15/201004/12 Inactive Synthroid 112 mcg Tab RxNorm: 083670 1 Tablet(s) PO QD 09/15/2010 Inactive metformin ER 500 mg 24 hr Tab RxNorm: 783317 1 Tablet(s) PO QD 08/2304/12/2011 Inactive Symbicort 160 mcg-4.5 mcg/Actuation Inhalation HFA Aer osol Inhaler RxNorm: 3210514 2 Puff(s) INH BID 09/15/2010 04/12/2011 Inactive diazepam 10 mg Tab RxNorm: 910052 1 Tablet(s) PO BID and PRN 200910/13/2010 Inactive Phentermine 37.5 mg Cap RxNorm: 191077 1 Capsule(s) PO QD 09/02/2010 11/02/2011 Inactive ProAir HFA 90 mcg/Actuation Aerosol Inhaler RxNorm: 151752 2 Puff(s) INH Q4H prn shortness of breath 08/07/2010 No Stop Date Active Premarin 0.9 mg Tab RxNorm: 095852 1 Tablet(s) PO QD 08/07/201009/14 Inactive Loratadine 10 mg Tab RxNorm: 6478136 1 Tablet(s) PO QD 08/07/2010 Inactive Lactulose 10 gram/15 mL Oral Soln RxNorm: 817969 1 Unit Dose PO QD 08/07/2010 02/12/2019 Inactive Zofran 4 mg Tab RxNorm: 615629 1 Tablet(s) PO Q4H prn nausea 2009 No Stop Date Active Gabapentin 800 mg Tab RxNorm: 626814 1 Tablet(s) PO QD 08/07/2010 Inactive Synthroid 112 mcg Tab RxNorm: 624952 1 Tablet(s) PO QD 08/07/2010 Inactive Metformin ER 500 mg 24 hr Tab RxNorm: 824315 1 Tablet(s) PO QD 07/2309/14/2010 Inactive Vitamin D 1,000 unit Tab RxNorm: 727601 1 Tablet(s) PO TID 08/07/2002/12/2019 Inactive Symbicort 160 mcg-4.5 mcg/Actuation Inhalation HFA Aer osol Inhaler RxNorm: 6996778 2 Puff(s) INH BID 08/07/2010 09/14/2010 Inactive Prevacid 30 mg Cap RxNorm: 699701 1 Capsule(s) PO QD 08/07/201009/14 Inactive Metformin ER 500 mg 24 hr Tab RxNorm: 089815 1 Tablet(s) PO QD 06/2308/06/2010 Inactive Vitamin D 1,000 unit Tab RxNorm: 997149 1 Tablet(s) PO TID 07/14/2008/06/2010 Inactive Synthroid 112 mcg Tab RxNorm: 827450 1 Tablet(s) PO QD 07/14/2010 Inactive Lactulose 10 gram/15 mL Oral Soln RxNorm: 247006 1 Unit Dose PO QD 07/14/2010 08/06/2010 Inactive Levaquin 500 mg Tab RxNorm: 805675 1 Tablet(s) PO QD 07/14/201007/27 Inactive Premarin 0.9 mg Tab RxNorm: 398471 1 Tablet(s) PO QD 07/14/201008/06 Inactive ProAir HFA 90 mcg/Actuation Aerosol Inhaler RxNorm: 753453 2 Puff(s) INH Q4H prn shortness of breath 07/14/2010 No Stop Date Active Prevacid 30 mg Cap RxNorm: 868376 1 Capsule(s) PO QD 07/14/201008/06 Inactive Zofran 4 mg Tab RxNorm: 119107 1 Tablet(s) PO Q4H prn nausea 2009 No Stop Date Active Symbicort 160 mcg-4.5 mcg/Actuation Inhalation HFA Aer osol Inhaler RxNorm: 1213261 2 Puff(s) INH BID 07/14/2010 08/06/2010 Inactive Loratadine 10 mg Tab RxNorm: 2534339 1 Tablet(s) PO QD 07/14/2010 Inactive Gabapentin 800 mg Tab RxNorm: 835766 1 Tablet(s) PO QD 07/14/2010 Inactive Metformin ER 500 mg 24 hr Tab RxNorm: 727962 1 Tablet(s) PO 010 07/13/2010 Inactive Diazepam 10 mg Tab RxNorm: 176854 1 Tablet(s) PO BID and PRN 200909/06/2010 Inactive Premarin 0.9 mg Tab RxNorm: 942963 1 Tablet(s) PO QD 06/09/201007/13 Inactive Zofran 4 mg Tab RxNorm: 140831 1 Tablet(s) PO Q4H prn nausea 2009 No Stop Date Active ProAir HFA 90 mcg/Actuation Aerosol Inhaler RxNorm: 579900 2 Puff(s) INH Q4H prn shortness of breath 06/09/2010 No Stop Date Active Gabapentin 800 mg Tab RxNorm: 233441 1 Tablet(s) PO QD 06/09/2010 Inactive Loratadine 10 mg Tab RxNorm: 2782816 1 Tablet(s) PO QD 06/09/2010 Inactive Lactulose 10 gram/15 mL Oral Soln RxNorm: 504542 1 Unit Dose PO QD 06/09/2010 07/13/2010 Inactive Prevacid 30 mg Cap RxNorm: 600944 1 Capsule(s) PO QD 06/09/201007/13 Inactive Synthroid 112 mcg Tab RxNorm: 859521 1 Tablet(s) PO QD 06/09/2010 Inactive Symbicort 160 mcg-4.5 mcg/Actuation Inhalation HFA Aer osol Inhaler RxNorm: 7698010 2 Puff(s) INH BID 06/09/2010 07/13/2010 Inactive Omnicef 300 mg Cap RxNorm: 741887 2 Capsule(s) PO QD 05/07/201005/20 Inactive Metformin 500 mg Tab RxNorm: 908986 1 Tablet(s) PO QD 05/06/201005/22 Inactive ProAir HFA 90 mcg/Actuation Aerosol Inhaler RxNorm: 425030 2 Puff(s) INH Q4H prn shortness of breath 05/06/2010 No Stop Date Active lactulose 10 gram/15 mL Oral Soln RxNorm: 787114 1 Unit Dose PO QD 05/06/2010 06/10/2011 Inactive Loratadine 10 mg Tab RxNorm: 1049309 1 Tablet(s) PO QD 05/06/2010 Inactive Synthroid 112 mcg Tab RxNorm: 674077 1 Tablet(s) PO QD 05/06/2010 Inactive Symbicort 160 mcg-4.5 mcg/Actuation Inhalation HFA Aer osol Inhaler RxNorm: 3429618 2 Puff(s) INH BID 05/06/2010 06/08/2010 Inactive Gabapentin 800 mg Tab RxNorm: 093811 1 Tablet(s) PO QD 05/06/2010 Inactive 16.2 mg-0.1037 mg-0.0194 mg Tab RxNorm: 7560574 2 Tablet(s) PO TID PRN for gas and cramping 05/06/2010 05/12/2010 Inactive Zofran 4 mg Tab RxNorm: 889930 1 Tablet(s) PO Q4H prn nausea 200904/13/2010 Inactive MS Contin 60 mg Tab RxNorm: 359026 3 Tablet(s) PO BID 04/09/201004/22 Inactive Soma 350 mg Tab RxNorm: 336109 2 Tablet(s) PO TID 04/09/2010 05/08/20 10 Inactive Symbicort 160 mcg-4.5 mcg/Actuation Inhalation HFA Aer osol Inhaler RxNorm: 4806223 2 Puff(s) INH BID 04/08/2010 05/05/2010 Inactive Doxycycline 100 mg Cap RxNorm: 1261318 1 Capsule(s) PO BID 04/08/20 10 04/17/2010 Inactive Triamterene-Hydrochlorothiazide 37.5 mg-25 mg Cap RxNorm: 19 8316 1 Capsule(s) PO QAM 04/08/2010 09/04/2010 Inactive fluoxetine 40 mg Cap RxNorm: 491728 1 Capsule(s) PO QAM 04/08/2010 Inactive Morphine SR 120 mg multiphase 24 hr Cap RxNorm: 073611 1 Capsul e(s) PO 03/11/2010 04/07/2010 Inactive Endocet 10 mg-325 mg Tab RxNorm: 1222240 1-2 Tablet(s) PO Q4H IL N PAIN 03/11/2010 04/09/2010 Inactive Savella 100 mg Tab RxNorm: 555685 1 Tablet(s) PO BID 03/10/201004/09 Inactive Soma 350 mg Tab RxNorm: 436281 1 Tablet(s) PO TID prn spasm 010 04/09/2010 Inactive Savella 100 mg Tab RxNorm: 300879 1 Tablet(s) PO BID 02/03/201004/09 Inactive Aspirin 81 mg Tab RxNorm: 750934 1 Tablet(s) PO QD No Start Date Active Zyrtec 10 mg Tab RxNorm: 5746347 1 Tablet(s) PO QD No Start Date Active One Touch Ultra Test Strips RxNorm: Misc test at least t wice daily. No Start Date Active coenzyme Q10 200 mg capsule RxNorm: 586267 1 Capsule(s) PO QD No Star t Date Active One Touch Ultra Test Strips RxNorm: InVt BID Zainab t blood sugar at least twice daily. No Start Date 11/10/2010 Inactive Gabapentin 800 mg Tab RxNorm: 764400 1 Tablet(s) PO QD No Start Date 05/05/2010 Inactive Abilify 5 mg tablet RxNorm: 217622 1 Tablet(s) PO QD No Start Date Inactive Chantix 1 mg Tab RxNorm: 509539 1 Tablet(s) PO BID No Start Date 10/22 Inactive Ozempic 0.25 mg or 0.5 mg (2 mg/1.5 mL) subcutaneous p en injector RxNorm: 6114158 .25 Milligram(s) SQ QW No Start Date 07/04/2019 Inactive lancets 28 gauge RxNorm: Miscellaneous As needed for blo od glucose sticks No Start Date 08/23/2013 Inactive potassium chloride ER 20 mEq tablet,extended release RxNorm: 976018 2 Tablet(s) PO QD No Start Date 09/26/2018 Inactive Ventolin HFA 90 mcg/actuation Aerosol Inhaler RxNorm: 161885 2 Puff(s) INH Q4H prn No Start Date 01/17/2012 Inactive potassium chloride ER 20 mEq tablet,extended release RxNorm: 450032 2 Tablet(s) PO QD No Start Date 10/19/2018 Inactive Januvia 100 mg tablet RxNorm: 488254 1 Tablet(s) PO QD No Start Date 09/10/2015 Inactive Medrol (Aníbal) 4 mg Tabs in a Dose Pack RxNorm: 962657 Tablet(s) PO N o Start Date 08/09/2011 Inactive as directed Zithromax Z-Aníbal 250 mg Tab RxNorm: 073071 Tablet(s) PO No Start Date 01/25/2012 Inactive as directed vitamin B6-vitamin E-magnesium tablet RxNorm: 1 Tablet(s ) PO QHS with INH No Start Date 03/30/2018 Inactive prednisone 20 mg Tab RxNorm: 076242 1 Tablet(s) PO TID for 1wk then 1 po BID for 1wk No Start Date 01/25/2012 Inactive furosemide 40 mg tablet RxNorm: 605869 1 Tablet(s) PO QAM No Start Date 10/09/2018 Inactive Vitamin D3 1000 units Capsule RxNorm: 1 Capsule(s) PO TID No S tart Date 03/19/2015 Inactive Zofran 4 mg Tab RxNorm: 186170 1 Tablet(s) PO Q4H prn nausea No Sta rt Date 04/13/2010 Inactive Premarin 0.625 mg/g Vaginal Cream RxNorm: 647328 1 Gram (s) VAG QHS 3 times a week No Start Date 09/22/2017 Inactive oxycodone 10 mg tablet RxNorm: 6330364 1-2 Tablet(s) PO QID as n eeded for pain No Start Date 11/04/2015 Inactive Nicoderm CQ 21 mg/24 hr daily Patch RxNorm: 133755 1 Applicatio n TD QD No Start Date 08/05/2015 Inactive Topamax 50 mg tablet RxNorm: 487530 1/2 Tablet(s) PO QH S for 1wk then 1 po q HS for 1wk then 2 po q HS No Start Date 06/27/2012 Inactive Chantix Starting Month Aníbal 0.5 mg (11)-1 mg (3x14) Tab s in a Dose Pack RxNorm: 994021 Tablet(s) PO as directed No Start Date 03/01/2011 Inactive Trulicity 0.75 mg/0.5 mL subcutaneous pen injector RxNorm: 1 836312 Milliliter(s) SQ No Start Date 07/04/2019 Inactive Medrol (Aníbal) 4 mg Tabs in a Dose Pack RxNorm: 829365 Tablet(s) PO N o Start Date 01/25/2012 Inactive as directed Duragesic 100 mcg/hr Transderm Patch RxNorm: 653330 2 A pplication TD Q48H for pain No Start Date 09/05/2013 Inactive Premarin 0.9 mg Tab RxNorm: 166187 1 Tablet(s) PO QD No Start Date Inactive Zithromax Z-Aníbal 250 mg Tab RxNorm: 421417 Tablet(s) PO as direc chinmay No Start Date 01/25/2012 Inactive ondansetron 8 mg disintegrating tablet RxNorm: 415644 1 Tablet(s) PO Q6H as needed No Start Date 10/10/2018 Inactive oxycodone 15 mg tablet RxNorm: 3222471 1 Tablet(s) PO QID as nee ded for pain No Start Date 03/05/2019 Inactive ProAir HFA 90 mcg/Actuation Aerosol Inhaler RxNorm: 207318 2 Puff(s) INH Q4H prn for wheezing or shortness of breath No Start Date 12/21/2011 Inactive pravastatin 40 mg tablet RxNorm: 754714 1/2 Tablet(s) PO QOD No Sta rt Date 04/09/2015 Inactive ipratropium-albuterol 0.5 mg-3 mg(2.5 mg base)/3 mL ne bulization soln RxNorm: 0032536 1 Unit Dose INH Q4H as needed No Start Date 09/09/2016 Inactive furosemide 40 mg tablet RxNorm: 363892 1 Tablet(s) PO QAM as ne eded No Start Date 09/24/2019 Inactive Vitamin D2 oral RxNorm: 4018 oral No Start Date 03/18/2015 Inacti ve pravastatin 40 mg tablet RxNorm: 427800 1/2 Tablet(s) PO QD No Star t Date 04/09/2015 Inactive ondansetron HCl 4 mg tablet RxNorm: 723138 1 Tablet(s) PO Q4H as needed for nausea and vomiting No Start Date 04/07/2016 Inactive furosemide 40 mg tablet RxNorm: 605830 2 Tablet(s) PO QAM No Start Date 09/26/2018 Inactive gabapentin 800 mg tablet RxNorm: 470174 1/2 Tablet(s) PO BID No Sta rt Date 06/21/2017 Inactive gabapentin 800 mg tablet RxNorm: 142269 1/2 Tablet(s) PO BID No Sta rt Date 07/05/2017 Inactive ProAir HFA 90 mcg/Actuation Aerosol Inhaler RxNorm: 809997 2 Puff(s) INH Q4H prn shortness of breath No Start Date 05/05/2010 Inactive scopolamine 1 mg over 3 days transdermal patch RxNorm: 05059 2 1 Application TD behind ear. Take off after three days No Start Date 10/10/2018 Inactive Metformin 500 mg Tab RxNorm: 526502 1 Tablet(s) PO QD No Start Date 0 05/05/2010 Inactive MS Contin 200 mg Tab RxNorm: 039189 1 Tablet(s) PO BID No Start Date 08/20/2011 Inactive Belladonna-Phenobarbital 48 mg tablet,extended release RxNor m: 2 Tablet(s) PO TID No Start Date 06/04/2016 Inactive Synthroid 112 mcg Tab RxNorm: 768488 1 Tablet(s) PO QD No Start Date 05/05/2010 Inactive Zegerid 40 mg-1.1 gram Cap RxNorm: 400952 1 Capsule(s) PO QD No Sta rt Date 01/25/2012 Inactive Premarin 0.625 mg/g Vaginal Cream RxNorm: 503013 VAG In sert 1gm vaginally at bedtime 3 times weekly No Start Date 01/17/2011 Inactive potassium chloride ER 20 mEq tablet,extended release RxNorm: 809378 1 Tablet(s) PO QD No Start Date 04/24/2019 Inactive methocarbamol 750 mg tablet RxNorm: 918643 2 Tablet(s) PO TID as needed for muscle spasm No Start Date 07/08/2014 Inactive Biaxin XL Aníbal 500 mg 24 hr Tab RxNorm: 747378 Tablet(s) PO as d irected No Start Date 04/24/2013 Inactive Vitamin D3 1,000 unit tablet RxNorm: 851057 3 Tablet(s) PO QD No St art Date 06/01/2017 Inactive Morphine SR 120 mg multiphase 24 hr Cap RxNorm: 640287 1 Capsul e(s) PO BID No Start Date 04/09/2010 Inactive Silvadene 1 % topical cream RxNorm: 792952 1 Application TOP BI D to burn area No Start Date 01/31/2017 Inactive Prednisone 20 mg Tab RxNorm: 570034 1 Tablet(s) PO TID for 3days then BID for 4days No Start Date 01/25/2012 Inactive gabapentin 600 mg tablet RxNorm: 412677 1 Tablet(s) PO BID No Start Date 01/21/2015 Inactive topiramate 50 mg tablet RxNorm: 076509 1 Tablet(s) PO QHS No Start Date 03/30/2018 Inactive Januvia 100 mg tablet RxNorm: 589898 1/2 Tablet(s) PO QD No Start D ate 12/25/2015 Inactive Diazepam 10 mg Tab RxNorm: 220868 1 Tablet(s) PO BID and PRN No Sta rt Date 06/08/2010 Inactive Medication Administered No Medication Administered data Immunizations Vaccine Codes Date Status Influenza CVX: 141 09/28/2012 Pneumovax Unknown 09/28/2012 Influenza (Adult) CVX: 141 09/02/2010 Results No Results data Procedures Procedure Codes Date THER/PROPH/DIAG INJ SC/IM CPT-4: 79289 07/10/2019 METHYLPREDNISOLONE INJECTION CPT-4: J2930 07/10/2019 URINALYSIS NONAUTO W/O SCOPE CPT-4: 74945 09/06/2018 URINE CULTURE/ COLONY COUNT CPT-4: 14511 09/06/2018 DRAIN/INJECT JOINT/BURSA CPT-4: 31948 04/29/2017 TRIAMCINOLONE ACET INJ NOS CPT-4: J3301 04/29/2017 DEXAMETHASONE SODIUM PHOS CPT-4: J1100 04/29/2017 INFLUENZA ASSAY W/OPTIC CPT-4: 68992 12/01/2016 RESPIRATORY CULTURE & STAIN CPT-4: 99177 07/09/2016 TB INTRADERMAL TEST CPT-4: 23412 04/21/2016 DRAIN/INJECT JOINT/BURSA CPT-4: 25454 11/07/2013 METHYLPREDNISOLONE 40 MG INJ CPT-4: J1030 11/07/2013 TRIAMCINOLONE ACET INJ NOS CPT-4: J3301 11/07/2013 DRAIN/INJECT JOINT/BURSA CPT-4: 37571 08/08/2013 METHYLPREDNISOLONE 40 MG INJ CPT-4: J1030 08/08/2013 TRIAMCINOLONE ACET INJ NOS CPT-4: J3301 08/08/2013 FLU VACCINE 3 YRS & > IM UP 64 CPT-4: 61576 2 PNEUMOCOCCAL VACC 23 ADITYA IM CPT-4: 26415 09/28/2012 IMMUNIZATION ADMIN CPT-4: 72193 09/28/2012 IMMUNIZATION ADMIN EACH ADD CPT-4: 15335 09/28/2012 FLU VACCINE 3 YRS & > IM UP 64 CPT-4: 95937 0 IMMUNIZATION ADMIN CPT-4: 77323 09/02/2010 METHYLPREDNISOLONE INJECTION CPT-4: J2930 05/07/2010 THER/PROPH/DIAG INJ SC/IM CPT-4: 58527 05/07/2010 Vital Signs Date Vital 11/29/2019 Blood [...] 1: 122/78 Code: 8480-6 BMI: 29.5 Code: 18628-5 Heart Rate 1: 76 bpm Height: 5'4" Respiratory Rate: 20 bpm SpO2: 96% Tempera ture: 37.0 (C) / 98.6 (F) Weight: 172 lbs 01/25/2019 Blood Pressure 1: 132/80 Code: 8480-6 BMI: 29.7 Code: 31569-6 Heart Rate 1: 84 bpm Height: 5'4" Respiratory Rate: 22 bpm SpO2: 98% Tempera ture: 36.9 (C) / 98.4 (F) Weight: 173 lbs 01/03/2019 Blood Pressure 1: 116/70 Code: 8480-6 BMI: 29.5 Code: 06930-8 Heart Rate 1: 92 bpm Height: 5'4" Respiratory Rate: 24 bpm SpO2: 98% Tempera ture: 37.2 (C) / 98.9 (F) Weight: 172 lbs 11/21/2018 Blood Pressure 1: 146/82 Code: 8480-6 BMI: 28.2 Code: 15039-2 Heart Rate 1: 88 bpm Height: 5'4" Respiratory Rate: 22 bpm SpO2: 97% Tempera ture: 36.9 (C) / 98.4 (F) Weight: 164 lbs 10/27/2018 Blood Pressure 1: 122/70 Code: 8480-6 BMI: 27.6 Code: 03450-4 Heart Rate 1: 88 bpm Height: 5'4" Respiratory Rate: 20 bpm SpO2: 96% Tempera ture: 36.8 (C) / 98.3 (F) Weight: 161 lbs 10/18/2018 Blood Pressure 1: 126/70 Code: 8480-6 BMI: 28.3 Code: 37724-3 Heart Rate 1: 76 bpm Height: 5'4" Respiratory Rate: 20 bpm SpO2: 95% Tempera ture: 37.0 (C) / 98.6 (F) Weight: 165 lbs 09/27/2018 Blood Pressure 1: 124/78 Code: 8480-6 BMI: 27.1 Code: 65831-7 Heart Rate 1: 88 bpm Height: 5'4" Respiratory Rate: 20 bpm SpO2: 98% Tempera ture: 36.4 (C) / 97.6 (F) Weight: 158 lbs 09/14/2018 Blood Pressure 1: 140/72 Code: 8480-6 BMI: 26.1 Code: 74896-6 Heart Rate 1: 100 bpm Height: 5'4" Respiratory Rate: 20 bpm SpO2: 97% Tempera ture: 36.9 (C) / 98.4 (F) Weight: 152 lbs 09/06/2018 Blood Pressure 1: 156/82 Code: 8480-6 BMI: 26.3 Code: 17690-9 Heart Rate 1: 100 bpm Height: 5'4" Respiratory Rate: 28 bpm SpO2: 95% Tempera ture: 37.2 (C) / 98.9 (F) Weight: 153 lbs 08/16/2018 Blood Pressure 1: 130/78 Code: 8480-6 Heart Rate 1: 87 bpm Respiratory Rate: 24 bpm SpO2: 94% Temperature: 36.9 (C) / 98.4 (F) We ight: 147 lbs 8 oz 07/07/2018 Blood Pressure 1: 116/78 Code: 8480-6 BMI: 22.7 Code: 47290-3 Heart Rate 1: 88 bpm Height: 5'4" Respiratory Rate: 22 bpm SpO2: 98% Tempera ture: 36.5 (C) / 97.7 (F) Weight: 132 lbs 05/31/2018 Blood Pressure 1: 128/78 Code: 8480-6 BMI: 22.3 Code: 14300-1 Heart Rate 1: 92 bpm Height: 5'4" Respiratory Rate: 26 bpm SpO2: 94% Tempera ture: 36.7 (C) / 98.1 (F) Weight: 130 lbs 03/31/2018 Blood Pressure 1: 136/78 Code: 8480-6 BMI: 21.5 Code: 72708-4 Heart Rate 1: 76 bpm Height: 5'4" Respiratory Rate: 24 bpm SpO2: 95% Tempera ture: 36.8 (C) / 98.3 (F) Weight: 125 lbs 01/26/2018 Blood Pressure 1: 142/64 Code: 8480-6 BMI: 20.6 Code: 68371-5 Heart Rate 1: 90 bpm Height: 5'4" Respiratory Rate: 24 bpm SpO2: 92% Tempera ture: 36.3 (C) / 97.3 (F) Weight: 120 lbs 10/26/2017 Blood Pressure 1: 124/70 Code: 8480-6 BMI: 20.3 Code: 91125-9 Heart Rate 1: 76 bpm Height: 5'4" Respiratory Rate: 22 bpm SpO2: 94% Tempera ture: 36.7 (C) / 98.1 (F) Weight: 118 lbs 09/23/2017 Blood Pressure 1: 106/70 Code: 8480-6 BMI: 19.2 Code: 06792-5 Heart Rate 1: 76 bpm Height: 5'4" Respiratory Rate: 20 bpm SpO2: 94% Tempera ture: 36.8 (C) / 98.3 (F) Weight: 112 lbs 08/12/2017 Blood Pressure 1: 116/68 Code: 8480-6 BMI: 20.1 Code: 77048-0 Heart Rate 1: 80 bpm Height: 5'4" Respiratory Rate: 22 bpm SpO2: 95% Tempera ture: 36.8 (C) / 98.2 (F) Weight: 117 lbs 07/06/2017 Blood Pressure 1: 136/78 Code: 8480-6 BMI: 20.6 Code: 36701-5 Heart Rate 1: 76 bpm Height: 5'4" Respiratory Rate: 24 bpm SpO2: 96% Tempera ture: 36.8 (C) / 98.2 (F) Weight: 120 lbs 06/02/2017 Blood Pressure 1: 112/70 Code: 8480-6 Heart Rate 1: 92 bpm Height: 5'4" Respiratory Rate: 24 bpm SpO2: 95% Temperature: 37.0 (C) / 98.6 (F) Weight: 04/29/2017 Blood Pressure 1: 94/52 Code: 8480-6 BMI: 19.6 C ode: 63573-0 Heart Rate 1: 84 bpm Height: 5'4" [...] 92/58 Code: 8480-6 BMI: 19.2 C ode: 59105-9 Heart Rate 1: 84 bpm Height: 5'4" Respiratory Rate: 26 bpm SpO2: 95% Tempera ture: 36.7 (C) / 98.0 (F) Weight: 112 lbs 12/01/2016 Blood Pressure 1: 114/70 Code: 8480-6 BMI: 19.2 Code: 77912-0 Heart Rate 1: 96 bpm Height: 5'4" Respiratory Rate: 28 bpm SpO2: 93% Tempera ture: 38.3 (C) / 101.0 (F) Weight: 112 lbs 10/27/2016 Blood Pressure 1: 126/66 Code: 8480-6 BMI: 19.6 Code: 06451-2 Heart Rate 1: 92 bpm Height: 5'4" Respiratory Rate: 28 bpm SpO2: 90% Tempera ture: 36.8 (C) / 98.3 (F) Weight: 114 lbs 09/09/2016 Blood Pressure 1: 126/74 Code: 8480-6 Heart Rate 1: 104 bpm Height: 5'4" Respiratory Rate: 32 bpm SpO2: 88% Temperature: 37 .2 (C) / 99.0 (F) 08/26/2016 Blood Pressure 1: 134/82 Code: 8480-6 BMI: 22.0 Code: 79068-2 Heart Rate 1: 84 bpm Height: 5'4" Respiratory Rate: 24 bpm SpO2: 94% Tempera ture: 36.8 (C) / 98.3 (F) Weight: 128 lbs 05/21/2016 Blood Pressure 1: 142/80 Code: 8480-6 BMI: 21.6 Code: 36079-2 Heart Rate 1: 104 bpm Height: 5'4" Respiratory Rate: 22 bpm SpO2: 93% Tempera ture: 36.0 (C) / 96.8 (F) Weight: 126 lbs 03/25/2016 Blood Pressure 1: 126/62 Code: 8480-6 Heart Rate 1: 88 bpm Respiratory Rate: 20 bpm SpO2: 92% Temperature: 36.8 (C) / 98.3 (F) We ight: 130 lbs 01/23/2016 Blood Pressure 1: 146/82 Code: 8480-6 BMI: 24.1 Code: 59502-6 Heart Rate 1: 92 bpm Height: 5'3" Respiratory Rate: 22 bpm Temperature: 37 .1 (C) / 98.8 (F) Weight: 136 lbs 12/26/2015 Blood Pressure 1: 142/78 Code: 8480-6 BMI: 24.6 Code: 97778-8 Heart Rate 1: 78 bpm Height: 5'3" Respiratory Rate: 20 bpm Temperature: 36 .7 (C) / 98.1 (F) Weight: 139 lbs 12/03/2015 Blood Pressure 1: 126/60 Code: 8480-6 BMI: 24.6 Code: 04841-9 Heart Rate 1: 100 bpm Height: 5'3" Respiratory Rate: 28 bpm Temperature: 37 .6 (C) / 99.6 (F) Weight: 139 lbs 09/10/2015 Blood Pressure 1: 124/64 Code: 8480-6 BMI: 23.7 Code: 32140-2 Heart Rate 1: 88 bpm Height: 5'3" Respiratory Rate: 24 bpm SpO2: 95% Tempera ture: 36.4 (C) / 97.6 (F) Weight: 134 lbs 08/06/2015 Blood Pressure 1: 114/76 Code: 8480-6 BMI: 23.2 Code: 05941-5 Heart Rate 1: 88 bpm Height: 5'3" Respiratory Rate: 22 bpm Temperature: 36 .6 (C) / 97.9 (F) Weight: 131 lbs 07/18/2015 Blood Pressure 1: 144/78 Code: 8480-6 BMI: 23.7 Code: 48852-6 Heart Rate 1: 84 bpm Height: 5'3" Respiratory Rate: 20 bpm Temperature: 37 .2 (C) / 99.0 (F) Weight: 134 lbs 04/10/2015 Blood Pressure 1: 110/64 Code: 8480-6 Heart Rate 1: 80 bpm Height: Respiratory Rate: 20 bpm Temperature: 37.1 (C) / 98.8 (F) Weight: 03/05/2015 Blood Pressure 1: 136/80 Code: 8480-6 BMI: 23.9 Code: 25739-1 Heart Rate 1: 76 bpm Height: 5'3" Respiratory Rate: 24 bpm Temperature: 37 .0 (C) / 98.6 (F) Weight: 135 lbs 01/30/2015 Blood Pressure 1: 142/80 Code: 8480-6 BMI: 23.0 Code: 27043-1 Heart Rate 1: 96 bpm Height: 5'3" Respiratory Rate: 22 bpm Temperature: 36 .2 (C) / 97.2 (F) Weight: 130 lbs 01/02/2015 Blood Pressure 1: 124/70 Code: 8480-6 BMI: 23.4 Code: 44417-2 Heart Rate 1: 84 bpm Height: 5'3" Respiratory Rate: 24 bpm SpO2: 95% Tempera ture: 36.9 (C) / 98.5 (F) Weight: 132 lbs 10/03/2014 Blood Pressure 1: 106/68 Code: 8480-6 BMI: 22.5 Code: 39940-5 Heart Rate 1: 88 bpm Height: 5'3" Respiratory Rate: 24 bpm Temperature: 37 .0 (C) / 98.6 (F) Weight: 127 lbs 08/27/2014 Blood Pressure 1: 124/68 Code: 8480-6 BMI: 21.1 Code: 25232-2 Heart Rate 1: 88 bpm Height: 5'3" Respiratory Rate: 28 bpm Temperature: 36 .9 (C) / 98.5 (F) Weight: 119 lbs 07/03/2014 Blood Pressure 1: 114/ Code: 8480-6 Heart Rate 1: 84 bpm [...] 1: 120/70 Code: 8480-6 BMI: 19.2 Code: 01904-7 Heart Rate 1: 70 bpm Height: 5'4" Respiratory Rate: 20 bpm Temperature: 36 .9 (C) / 98.4 (F) Weight: 112 lbs 06/28/2013 Blood Pressure 1: 102/68 Code: 8480-6 BMI: 19.6 Code: 32576-3 Heart Rate 1: 76 bpm Height: 5'4" Respiratory Rate: 20 bpm Temperature: 36 .8 (C) / 98.2 (F) Weight: 114 lbs 05/31/2013 Blood Pressure 1: 106/70 Code: 8480-6 BMI: 18.9 Code: 68877-3 Heart Rate 1: 100 bpm Height: 5'4" Respiratory Rate: 20 bpm Temperature: 36 .4 (C) / 97.6 (F) Weight: 110 lbs 05/03/2013 Blood Pressure 1: 126/70 Code: 8480-6 BMI: 19.1 Code: 28169-6 Heart Rate 1: 88 bpm Height: 5'4" Respiratory Rate: 20 bpm Temperature: 37 .1 (C) / 98.8 (F) Weight: 111 lbs 04/25/2013 Blood Pressure 1: 114/68 Code: 8480-6 BMI: 19.4 Code: 90314-2 Heart Rate 1: 92 bpm Height: 5'4" Respiratory Rate: 24 bpm SpO2: 96% Tempera ture: 37.7 (C) / 99.8 (F) Weight: 113 lbs 03/08/2013 Blood Pressure 1: 94/68 Code: 8480-6 BMI: 21.3 C ode: 27682-0 Heart Rate 1: 88 bpm Height: 5'4" Respiratory Rate: 24 bpm Temperature: 37 .0 (C) / 98.6 (F) Weight: 124 lbs 02/07/2013 Blood Pressure 1: 106/64 Code: 8480-6 BMI: 21.8 Code: 01598-7 Heart Rate 1: 84 bpm Height: 5'4" Respiratory Rate: 22 bpm Temperature: 36 .8 (C) / 98.2 (F) Weight: 127 lbs 01/10/2013 Blood Pressure 1: 122/68 Code: 8480-6 BMI: 21.6 Code: 72357-7 Heart Rate 1: 94 bpm Height: 5'4" SpO2: 94% Temperature: 36.7 (C) / 98.1 (F) Weight: 126 lbs 09/28/2012 Blood Pressure 1: 124/78 Code: 8480-6 BMI: 24.9 Code: 05684-1 Heart Rate 1: 92 bpm Height: 5'4" Respiratory Rate: 20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 Medication Summary Completed 08/10/2011 Visit Plan: Supportive care. Rest, Fluid s, Tylenol/Motrin prn fever or bodyaches. Notify if worsening symptoms. Medrol Dose Pack Smoking Cessation and recommend get rid of cat Add Reglan for stomach 07/15/2011 Appointment: Vika Renteriatel: [address] [place] [address] ACUTE ILLNESS 07/15/2011 Patient Education: Patient Medication Summary Completed 07/15/2011 Appointment: Vika Renteriatel: [address] [place] [address] FOLLOW UP 04/02/2011 Visit Plan: SVN with Albuterol 0.083% Q4 hrs and Q2hrs prn. Cont smoking Cessation 03/19/2011 Appointment: Vika Renteriatel: [address] [place] [address] ACUTE ILLNESS 03/19/2011 Patient Education: Patient Medication Summary Completed 03/19/2011 Visit Plan: Repeat Biaxin XL Cont curren t meds Repeat Chantix 01/28/2011 Appointment: Vika Renteria: [address] [place], [place] [phone] FOLLOW UP 01/28/2011 Patient Education: Patient Medication Summary Completed 01/28/2011 Patient Education: Chantix Unbranded Comp leted 01/28/2011 Appointment: Vika Renteria WPtel: [address] [place], [place] [phone] FOLLOW UP 01/14/2011 Visit Plan: Finish abx Diflucan for vagi nitis Premarin vaginal cream Smoking cessation 12/17/2010 Appointment: Vika Renteria WPtel: [address] [place], [place] [phone] [place] [address] Follow Up 12/17/2010 Patient Education: Patient Medication Summary Completed 12/17/2010 Appointment: Vika Renteria WPtel: [address] [place], [place] [phone] FOLLOW UP 11/06/2010 Visit Plan: Start PT Use SVNs every 4hrs Smoking Cessation Change MS Contin to 200mg q 12hrs 2010 Appointment: Vika Renteria WPtel: [address] [place], [place] [phone] FOLLOW UP 2010 Patient Education: Patient Medication Summary Completed 2010 Visit Plan: Prednisone taper for pain an d lungs 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 Increase fluoxetine to 60mg QD for acute stress reaction 10/02/2010 Appointment: Vika Renteria WPtel: [address] [place], [place] [phone] FOLLOW UP 10/02/2010 Patient Education: Patient Medication Summary Completed 10/02/2010 Visit Plan: Check CT Head, Cervical, Tho racic, and Lumbar Spine Cont current meds Bactrim for left toe 09/24/2010 Appointment: Vika Renteria WPtel: [address] [place], [place] [phone] CHECK UP 09/24/2010 Patient Education: Patient Medication Summary Completed 09/24/2010 Appointment: Vika Renteria WPtel: [address] [place] [address] FOLLOW UP 09/02/2010 Patient Education: Patient Medication Summary Completed 09/02/2010 Visit Plan: Return for 2nd epidural Obse rve right leg lesion Cont Symbicort and Spiriva 07/14/2010 Appointment: Vika Renteria WPtel: [address] [place] [address] FOLLOW UP 07/14/2010 Patient Education: Patient Medication Summary Completed 07/14/2010 Appointment: Vika Renteria WPtel: [address] [place] [address] FOLLOW UP 05/27/2010 Appointment: Vika Renteria WPtel: [address] [place] [address] FOLLOW UP 05/14/2010 Visit Plan: SVN with Albuterol 0.083% Q4 hrs and Q2hrs prn. Restart Spiriva Smoking Cessation 05/07/2010 Appointment: Vika Renteria WPtel: [address] [place] [address] FOLLOW UP 05/07/2010 Patient Education: Patient Medication Summary Completed 05/07/2010 Appointment: Vika Renteria WPtel: [address] [place] [address] ACUTE ILLNESS 04/08/2010 Patient Education: Patient Medication Summary Completed 04/08/2010 Referral: Kyle Billings WPtel: [phone] [address] [place] Referral Completed Referral: Jaylan Matute WPtel: [phone] [facility] [address] [id number] [place] Referral Initiated Referral: Kyle Billings WPtel: [phone] [address] [place] Referral Appointment Requested Instructions Comment . [...] prn breakthrough pain . Discussed that some [employer] produc ts are petroleum free If [...]
--- OUTSIDE RECORDS SUMMARY | 2020-04-24 22:13 | XMS REPORT | CCD ---
Author Author Yana Renteria D.O. 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 Name Role Phone Vika Renteria D.O., PP Unavailable CCM Unavailable Summary Purpose Interface Exchange Insurance Providers Payer name Policy type / Coverage type Covered democrat ID Effective Begin Date Effective End Date [employer] [facility] Medicaid [id number] 2018 U nknown Family History Family History data not found Social History Social History Element Codes Description Effective Dates Marital status Unknown 06/28/[address]: [id number] Currently smokes tobacco 05/2013 Allergies, Adverse Reactions, [...] Fill Instructions levothyroxine 25 mcg tablet RxNorm: 255668 TAKE ONE TAB LET BY MOUTH EVERY MORNING 04/09/2020 No Stop Date Active MS Contin 200 mg tablet,extended release RxNorm: 175186 1 Tablet(s) Oral two times a day 03/19/2020 04/17/2020 Active Relistor 150 mg tablet RxNorm: 1223470 TAKE THREE TABLETS BY BENOIT TH DAILY 03/13/2020 No Stop Date Active cyclobenzaprine 10 mg tablet RxNorm: 978160 TAKE ONE TA BLET BY MOUTH THREE TIMES A DAY NEEDED 03/13/2020 No Stop Date Active furosemide 40 mg tablet RxNorm: 109131 TAKE ONE TABLET BY MOUTH EVERY MORNING 03/13/2020 No Stop Date Active hydroxyzine HCl 50 mg tablet RxNorm: 667551 1 Tablet(s) Oral two times a day to take with morphine--replaces benadryl 03/12/2020 04/11/2020 Active prednisone 1 mg tablet RxNorm: 927727 1 Tablet(s) Oral two times a day to take with hydroxyzine 03/12/2020 No Stop Date Active prednisolone 5 mg tablet RxNorm: 771353 1 Tablet(s) Oral two ti mes a day 02/22/2020 03/23/2020 Inactive prednisolone 5 mg tablet RxNorm: 429877 1 Tablet(s) Oral two ti mes a day 02/22/2020 02/21/2020 Inactive Symbicort 160 mcg-4.5 mcg/actuation HFA aerosol inhaler RxNo rm: 2945673 INHALE TWO PUFFS BY MOUTH TWICE A DAY 02/19/2020 No Stop Date Active Daliresp 500 mcg tablet RxNorm: 0864353 TAKE ONE TABLET BY MOUTH DAILY 02/19/2020 No Stop Date Active prednisone 20 mg tablet RxNorm: 809065 1 Tablet(s) Oral two yumi es a day 02/13/2020 02/20/2020 Inactive oxycodone 30 mg tablet RxNorm: 3620039 1 Tablet(s) Oral four times a day replaces MS Contin 02/13/2020 02/22/2020 Inactive levothyroxine 25 mcg tablet RxNorm: 550346 TAKE ONE TAB LET BY MOUTH EVERY MORNING 02/09/2020 04/08/2020 Inactive MS Contin 200 mg tablet,extended release RxNorm: 816021 1 Tablet(s) Oral two times a day 02/01/2020 03/01/2020 Inactive Premarin 0.45 mg tablet RxNorm: 913368 TAKE ONE TABLET BY MOUTH DAILY 01/31/2020 No Stop Date Active metformin 500 mg tablet RxNorm: 901222 1 Tablet(s) Oral QD 01/31/20 20 04/29/2020 Active cyclobenzaprine 10 mg tablet RxNorm: 792959 TAKE ONE TA BLET BY MOUTH THREE TIMES A DAY NEEDED 01/31/2020 03/12/2020 Inactive gabapentin 300 mg capsule RxNorm: 479611 TAKE ONE CAPSULE BY [facility] TWICE A DAY 01/16/2020 No Stop Date Active potassium chloride ER 20 mEq tablet,extended release RxNorm: 099688 TAKE ONE TABLET BY MOUTH DAILY 01/08/2020 07/05/2020 Active ProAir HFA 90 mcg/actuation aerosol inhaler RxNorm: 207458 INHALE ONE PUFF BY MOUTH EVERY 4 HOURS FOR WHEEZING OR FOR SHORTNESS OF BREATH 01/04/2020 No Stop Date Active metformin 500 mg tablet RxNorm: 722833 1 Tablet(s) Oral QD 01/04/20 20 01/30/2020 Inactive MS Contin 200 mg tablet,extended release RxNorm: 764616 1 Tablet(s) Oral two times a day 01/02/2020 01/31/2020 Inactive Pulmicort 1 mg/2 mL suspension for nebulization RxNorm: 6168 19 USE ONE VIAL VIA NEBULIZER BY MOUTH TWICE A DAY 12/21/2019 No Stop Date Active furosemide 40 mg tablet RxNorm: 471477 TAKE ONE TABLET BY MOUTH EVERY MORNING NEEDED 12/20/2019 03/12/2020 Inactive levothyroxine 25 mcg tablet RxNorm: 005645 TAKE ONE TAB LET BY MOUTH EVERY MORNING 12/20/2019 02/08/2020 Inactive MS Contin 200 mg tablet,extended release RxNorm: 275507 1 Tablet(s) Oral two times a day 12/05/2019 01/01/2020 Inactive Medrol (Aníbal) 4 mg tablets in a dose pack RxNorm: 360930 6 Tablet(s) Oral QD --then as directed 11/30/2019 12/05/2019 Inactive MS Contin 200 mg tablet,extended release RxNorm: 790257 1 Tablet(s) Oral two times a day 11/29/2019 12/04/2019 Inactive cyclobenzaprine 10 mg tablet RxNorm: 809322 TAKE ONE TA BLET BY MOUTH THREE TIMES A DAY NEEDED 11/21/2019 01/30/2020 Inactive MS Contin 200 mg tablet,extended release RxNorm: 927201 1 Tablet(s) Oral two times a day replaces 100mg dose 11/03/2019 11/02/2019 Inactive MS Contin 200 mg tablet,extended release RxNorm: 885533 1 Tablet(s) Oral two times a day replaces 100mg dose 11/03/2019 11/29/2019 Inactive ferrous sulfate 325 mg (65 mg iron) tablet RxNorm: 951893 1 Tab let(s) Oral QD 10/30/2019 No Stop Date Active MS Contin 100 mg tablet,extended release RxNorm: 603589 1 Table t(s) Oral QD 10/30/2019 10/29/2019 Inactive MS Contin 100 mg tablet,extended release RxNorm: 185386 1 Table t(s) Oral QD 10/30/2019 11/02/2019 Inactive pantoprazole 40 mg tablet,delayed release RxNorm: 133276 1 Tabl et(s) Oral QD 10/25/2019 No Stop Date Active Minipress 2 mg capsule RxNorm: 662350 1 Capsule(s) Oral QAM and 3 at bedtime 10/25/2019 No Stop Date Active Lancets, Super Thin RxNorm: 1 Unit Dose Miscellaneous QD 9 11/27/2020 Active Cymbalta 60 mg capsule,delayed release RxNorm: 959902 1 Capsule (s) Oral QAM 10/25/2019 No Stop Date Active Cymbalta 30 mg capsule,delayed release RxNorm: 608883 1 Capsule (s) Oral QAM 10/25/2019 No Stop Date Active Relistor 150 mg tablet RxNorm: 6030172 TAKE THREE TABLETS BY BENOIT TH DAILY 10/25/2019 03/12/2020 Inactive oxycodone 15 mg tablet RxNorm: 1712627 1 Tablet(s) Oral four times a day as needed for pain 10/25/2019 11/28/2019 Inactive metformin 500 mg tablet RxNorm: 085015 1 Tablet(s) Oral QD 10/25/20 19 01/03/2020 Inactive levothyroxine 25 mcg tablet RxNorm: 318570 1 Tablet(s) Oral QAM 02/201912/19/2019 Inactive levothyroxine 25 mcg tablet RxNorm: 402285 1 Tablet(s) Oral QAM 02/201910/24/2019 Inactive MS Contin 100 mg tablet,extended release RxNorm: 880487 1 Tablet(s) Oral two times a day replaces fentanyl 10/25/2019 10/25/2019 Inactive Premarin 0.45 mg tablet RxNorm: 170148 TAKE ONE TABLET BY MOUTH DAILY 10/24/2019 01/30/2020 Inactive Duragesic 100 mcg/hr transdermal patch RxNorm: 837563 2 Application TD Q48H for pain 10/18/2019 10/24/2019 Inactive gabapentin 300 mg capsule RxNorm: 298718 TAKE ONE CAPSULE BY [facility] TWICE A DAY 10/16/2019 01/15/2020 Inactive cyclobenzaprine 10 mg tablet RxNorm: 812246 TAKE ONE TA BLET BY MOUTH THREE TIMES A DAY NEEDED 09/27/2019 11/20/2019 Inactive Relistor 150 mg tablet RxNorm: 2309144 TAKE THREE TABLETS BY BENOIT TH DAILY 09/25/2019 10/24/2019 Inactive ProAir HFA 90 mcg/actuation aerosol inhaler RxNorm: 313336 INHALE ONE PUFF BY MOUTH EVERY 4 HOURS FOR WHEEZING OR FOR SHORTNESS OF BREATH 09/25/2019 01/03/2020 Inactive furosemide 40 mg tablet RxNorm: 661606 1 Tablet(s) Oral QAM as needed 09/25/2019 09/25/2019 Inactive oxycodone 15 mg tablet RxNorm: 2308235 1 Tablet(s) PO QID as nee ded for pain 09/21/2019 10/24/2019 Inactive Duragesic 100 mcg/hr transdermal patch RxNorm: 416511 2 Application TD Q48H for pain 09/19/2019 10/17/2019 Inactive Daliresp 500 mcg tablet RxNorm: 3105291 1 Tablet(s) Oral QD 019 02/18/2020 Inactive Relistor 150 mg tablet RxNorm: 4941446 TAKE THREE TABLETS BY BENOIT TH DAILY 07/25/2019 07/30/2019 Inactive cyclobenzaprine 10 mg tablet RxNorm: 424707 TAKE ONE TA BLET BY MOUTH THREE TIMES A DAY NEEDED 07/25/2019 09/22/2019 Inactive potassium chloride ER 20 mEq tablet,extended release RxNorm: 247010 TAKE ONE TABLET BY MOUTH DAILY 07/25/2019 01/07/2020 Inactive fluoxetine 40 mg capsule RxNorm: 177668 TAKE ONE CAPSULE BY BENOIT TH EVERY MORNING 07/11/2019 10/24/2019 Inactive Medrol (Aníbal) 4 mg tablets in a dose pack RxNorm: 207997 6 Tablet(s) PO QD --then as directed 07/10/2019 07/15/2019 Inactive omeprazole 40 mg capsule,delayed release RxNorm: 502383 1 Capsule(s) PO QD for stomach TAKE ONE CAPSULE BY MOUTH DAILY 07/10/2019 10/24/2019 Inactive Augmentin 875 mg-125 mg tablet RxNorm: 258356 1 Tablet(s) PO BID 07/16/2019 Inactive Trulicity 0.75 mg/0.5 mL subcutaneous pen injector RxNorm: 1 588267 0.75 Milliliter(s) SQ weekly 07/05/2019 10/24/2019 Inactive Compazine 10 mg tablet RxNorm: 277175 TAKE ONE TABLET B Y MOUTH FOUR TIMES A DAY NEEDED FOR NAUSEA 06/20/2019 07/19/2019 Inactive ProAir HFA 90 mcg/actuation aerosol inhaler RxNorm: 340650 INHALE ONE PUFF BY MOUTH EVERY 4 HOURS FOR WHEEZING OR FOR SHORTNESS OF BREATH 06/20/2019 06/23/2019 Inactive Daliresp 500 mcg tablet RxNorm: 7488614 TAKE ONE TABLET BY MOUTH DAILY 06/12/2019 09/10/2019 Inactive bmtqlvkx-skghlrzqh-ymlgpgkpo 3.5 mg/mL-10,000 unit/mL- 1 % ear solution RxNorm: 707609 4 Drop(s) otic (ear) TID to left ear 06/05/2019 10/24/2019 Inac tive furosemide 40 mg tablet RxNorm: 678027 TAKE ONE TABLET BY MOUTH EVERY MORNING 05/26/2019 07/09/2019 Inactive Duragesic 100 mcg/hr transdermal patch RxNorm: 007461 2 Application TD Q48H for pain 05/16/2019 06/14/2019 Inactive oxycodone 15 mg tablet RxNorm: 6047246 1 Tablet(s) PO QID as nee ded for pain 05/10/2019 09/20/2019 Inactive doxycycline hyclate 100 mg capsule RxNorm: 7078098 1 Capsule(s) PO BID 05/03/2019 05/12/2019 Inactive prednisone 20 mg tablet RxNorm: 045586 1 Tablet(s) PO T ID for 3 days then 1 po BID for 3 days then one daily for 3 days 05/03/2019 07/11/2019 Inactiv e Ozempic 0.25 mg or 0.5 mg (2 mg/1.5 mL) subcutaneous p en injector RxNorm: 2185647 0.5 Milligram(s) SQ QW 05/03/2019 07/09/2019 Inactive fluconazole 100 mg tablet RxNorm: 401876 1 Tablet(s) PO QD 05/03/2005/07/2019 Inactive Premarin 0.45 mg tablet RxNorm: 991082 TAKE ONE TABLET BY MOUTH DAILY 05/03/2019 10/23/2019 Inactive potassium chloride ER 20 mEq tablet,extended release RxNorm: 124916 1 Tablet(s) PO QD 04/27/2019 07/25/2019 Inactive potassium chloride ER 20 mEq tablet,extended release RxNorm: 850321 1 Tablet(s) PO QD 04/25/2019 04/26/2019 Inactive Compazine 10 mg tablet RxNorm: 625321 1 Tablet(s) PO QID as nee ded for nausea 04/25/2019 05/04/2019 Inactive ProAir HFA 90 mcg/actuation aerosol inhaler RxNorm: 461940 INHALE ONE PUFF BY MOUTH EVERY 4 HOURS FOR WHEEZING OR FOR SHORTNESS OF BREATH 04/12/2019 06/10/2019 Inactive Medrol (Aníbal) 4 mg tablets in a dose pack RxNorm: 689308 6 Tablet(s) PO QD --then as directed 04/11/2019 04/16/2019 Inactive Symbicort 160 mcg-4.5 mcg/actuation HFA aerosol inhaler RxNo rm: 4658849 2 Puff(s) INH BID 04/10/2019 10/06/2019 Inactive levothyroxine 50 mcg tablet RxNorm: 284656 1 Tablet(s) PO QD 201810/24/2019 Inactive gabapentin 300 mg capsule RxNorm: 923008 1 Capsule(s) PO BID 201810/02/2019 Inactive Symbicort 160 mcg-4.5 mcg/actuation HFA aerosol inhaler RxNo rm: 7554430 2 Puff(s) INH BID 04/06/2019 04/09/2019 Inactive oxycodone 15 mg tablet RxNorm: 4725380 1 Tablet(s) PO QID as nee ded for pain 04/05/2019 05/09/2019 Inactive levothyroxine 50 mcg tablet RxNorm: 485936 1 Tablet(s) PO QD 201804/09/2019 Inactive furosemide 40 mg tablet RxNorm: 704091 TAKE ONE TABLET BY MOUTH EVERY MORNING 03/21/2019 04/19/2019 Inactive levothyroxine 50 mcg tablet RxNorm: 260733 TAKE ONE TABLET BY M OUTH DAILY 03/21/2019 03/27/2019 Inactive Duragesic 100 mcg/hr transdermal patch RxNorm: 479635 2 Application TD Q48H for pain 03/13/2019 04/11/2019 Inactive oxycodone 15 mg tablet RxNorm: 6850992 1 Tablet(s) PO QID as nee ded for pain 03/06/2019 04/04/2019 Inactive Relistor 150 mg tablet RxNorm: 0383781 3 Tablet(s) PO QD 02/28/2019 0 05/28/2019 Inactive cyclobenzaprine 10 mg tablet RxNorm: 100356 1 Tablet(s) PO TID as needed 02/28/2019 05/28/2019 Inactive phentermine 37.5 mg tablet RxNorm: 092704 1 Tablet(s) PO QAM 201803/15/2019 Inactive Duragesic 100 mcg/hr transdermal patch RxNorm: 951699 2 Application TD Q48H for pain 02/09/2019 03/10/2019 Inactive Daliresp 500 mcg tablet RxNorm: 3145146 TAKE ONE TABLET BY MOUTH DAILY 01/31/2019 05/30/2019 Inactive Premarin 0.45 mg tablet RxNorm: 912862 1 Tablet(s) PO QD 01/31/2019 0 04/30/2019 Inactive fluoxetine 40 mg capsule RxNorm: 393628 Capsule(s) TAKE ONE CAPSULE BY MOUTH EVERY MORNING 01/31/2019 04/30/2019 Inactive levothyroxine 50 mcg tablet RxNorm: 546558 1 Tablet(s) PO QD 201804/10/2019 Inactive follow up in 3 weeks levothyroxine 50 mcg tablet RxNorm: 984064 1 Tablet(s) PO QD 201801/25/2019 Inactive follow up in 3 weeks potassium chloride ER 20 mEq tablet,extended release RxNorm: 564791 2 Tablet(s) PO BID 01/23/2019 01/08/2020 Inactive Synthroid 50 mcg tablet RxNorm: 128884 TAKE ONE TABLET BY MOUTH DAILY 01/16/2019 10/24/2019 Inactive potassium chloride ER 20 mEq tablet,extended release RxNorm: 661494 2 Tablet(s) PO BID 01/04/2019 01/22/2019 Inactive ProAir HFA 90 mcg/actuation aerosol inhaler RxNorm: 748408 INHALE ONE PUFF BY MOUTH EVERY 4 HOURS FOR WHEEZING OR SHORTNESS OF BREATH 01/04/201902/20 Inactive Request already responded to by other me ans (e.g. phone or fax) ProAir HFA 90 mcg/actuation aerosol inhaler RxNorm: 6505842 INHALE ONE PUFF BY MOUTH EVERY 4 HOURS FOR WHEEZING OR SHORTNESS OF BREATH 01/02/201912/23 Inactive gabapentin 300 mg capsule RxNorm: 223545 TAKE ONE CAPSULE BY MO [facility] TWICE A DAY 12/30/2018 04/06/2019 Inactive furosemide 40 mg tablet RxNorm: 134865 1 Tablet(s) PO QAM 12/26/2018 02/23/2019 Inactive Compazine 10 mg tablet RxNorm: 570014 1 Tablet(s) PO QID as nee ded for nausea 12/07/2018 12/16/2018 Inactive metolazone 2.5 mg tablet RxNorm: 702677 TAKE ONE TABLET BY MOUT H EVERY MORNING 12/05/2018 01/03/2019 Inactive metformin ER 500 mg tablet,extended release 24 hr RxNorm: 86 0975 TAKE ONE TABLET BY MOUTH DAILY 12/05/2018 01/31/2020 Inactive Synthroid 50 mcg tablet RxNorm: 778385 1 Tablet(s) PO QD 11/25/2018 0 01/03/2019 Inactive DC any other synthroid strengths. Should be 50mcg only cyclobenzaprine 10 mg tablet RxNorm: 393306 TAKE ONE TA BLET BY MOUTH THREE TIMES A DAY NEEDED 11/09/2018 02/06/2019 Inactive metolazone 2.5 mg tablet RxNorm: 799629 1 Tablet(s) PO QAM repl aces 5mg dose 11/02/2018 12/01/2018 Inactive potassium chloride ER 20 mEq tablet,extended release RxNorm: 262090 2 Tablet(s) PO QD 2018 01/02/2019 Inactive Compazine 10 mg tablet RxNorm: 098978 1 Tablet(s) PO QID as nee ded for nausea 10/18/2018 12/07/2018 Inactive furosemide 40 mg tablet RxNorm: 990148 1 Tablet(s) PO QAM 10/12/2018 12/10/2018 Inactive ondansetron 8 mg disintegrating tablet RxNorm: 979663 1 Tablet(s) PO Q6H as needed 10/11/2018 10/17/2018 Inactive scopolamine 1 mg over 3 days transdermal patch RxNorm: 82706 2 1 Application TD behind ear. Take off after three days 10/11/2018 01/02/2019 Inactive furosemide 40 mg tablet RxNorm: 168530 1 Tablet(s) PO QAM 10/10/2018 12/26/2018 Inactive metolazone 5 mg tablet RxNorm: 008268 1 Tablet(s) PO QAM 10/06/2018 1 01/03/2018 Inactive metolazone 5 mg tablet RxNorm: 527204 1 Tablet(s) PO QAM 10/06/2018 1 12/05/2017 Inactive Xtampza ER 36 mg capsule sprinkle RxNorm: 8844720 1 Capsule(s) P O BID 10/05/2018 01/02/2019 Inactive Xtampza ER 36 mg capsule sprinkle RxNorm: 3656452 1 Capsule(s) P O BID 10/05/2018 02/12/2019 Inactive omeprazole 40 mg capsule,delayed release RxNorm: 489168 TAKE ONE CAPSULE BY MOUTH DAILY 10/03/2018 12/31/2018 Inactive Duragesic 100 mcg/hr transdermal patch RxNorm: 041988 2 Application TD Q48H for pain 09/30/2018 10/29/2018 Inactive Synthroid 50 mcg tablet RxNorm: 014641 1 Tablet(s) PO QD 09/29/2018 0 11/25/2018 Inactive DC any other synthroid strengths. Should be 50mcg only Synthroid 50 mcg tablet RxNorm: 774920 1 Tablet(s) PO QD 09/29/2018 1 11/28/2017 Inactive furosemide 40 mg tablet RxNorm: 868591 2 Tablet(s) PO Q AM for 1 week then every other day for 2 weeks 09/27/2018 10/12/2018 Inactive fluoxetine 40 mg capsule RxNorm: 788946 2 Capsule(s) PO QD 09/27/20 18 10/17/2018 Inactive potassium chloride ER 20 mEq tablet,extended release RxNorm: 538056 2 Tablet(s) PO QD for 1 week then every other day for 2 weeks 09/27/2018 2018 Inactive ProAir HFA 90 mcg/actuation aerosol inhaler RxNorm: 6880246 INHALE ONE PUFF BY MOUTH EVERY 4 HOURS FOR WHEEZING OR SHORTNESS OF BREATH 09/26/201811/23 Inactive Synthroid 75 mcg tablet RxNorm: 250096 1 Tablet(s) PO QD 09/09/2018 1 Inactive Synthroid 75 mcg tablet RxNorm: 110796 1 Tablet(s) PO QD 09/09/2018 1 11/28/2017 Inactive furosemide 40 mg tablet RxNorm: 793108 1 Tablet(s) PO QD 09/06/2018 1 Inactive potassium chloride ER 20 mEq tablet,extended release RxNorm: 823675 1 Tablet(s) PO QD 09/06/2018 09/19/2018 Inactive Duragesic 100 mcg/hr transdermal patch RxNorm: 938842 2 Application TD Q48H for pain 08/30/2018 09/28/2018 Inactive gabapentin 300 mg capsule RxNorm: 650540 TAKE ONE CAPSULE BY MO [facility] TWICE A DAY 08/23/2018 12/20/2018 Inactive Daliresp 500 mcg tablet RxNorm: 5327210 TAKE ONE TABLET BY MOUTH DAILY 08/23/2018 01/19/2019 Inactive Pulmicort 1 mg/2 mL suspension for nebulization RxNorm: 6168 19 USE ONE VIAL VIA NEBULIZER BY MOUTH TWICE A DAY 08/23/2018 07/11/2019 Inactive Synthroid 88 mcg tablet RxNorm: 237230 1 Tablet(s) PO QD 08/19/2018 1 Inactive Medrol (Aníbal) 4 mg tablets in a dose pack RxNorm: 281857 Tablet(s) PO take as directed 08/16/2018 09/05/2018 Inactive Relistor 150 mg tablet RxNorm: 6783851 3 Tablet(s) PO QD 08/16/2018 1 Inactive Zithromax Z-Aníbal 250 mg tablet RxNorm: 948592 Tablet(s) PO take as directed 08/16/2018 09/05/2018 Inactive cyclobenzaprine 10 mg tablet RxNorm: 829708 1 Tablet(s) PO TID as needed 08/16/2018 11/08/2018 Inactive Synthroid 88 mcg tablet RxNorm: 877148 1 Tablet(s) PO Q D NEEDS UPDATED LABS BEFORE FURTHER REFILLS 08/08/2018 08/19/2018 Inactive Premarin 0.45 mg tablet RxNorm: 388284 1 Tablet(s) PO QD 08/03/2018 0 01/31/2019 Inactive fluoxetine 20 mg capsule RxNorm: 574953 TAKE ONE CAPSULE BY BENOIT DAILY 08/03/2018 09/26/2018 Inactive Xtampza ER 36 mg capsule sprinkle RxNorm: 4891256 1 Capsule(s) P O BID 08/03/2018 09/01/2018 Inactive metformin ER 500 mg tablet,extended release 24 hr RxNorm: 86 0975 1 Tablet(s) PO QD 08/03/2018 10/31/2018 Inactive Symbicort 160 mcg-4.5 mcg/actuation HFA aerosol inhaler RxNo rm: 5950809 2 Puff(s) INH BID 08/03/2018 01/29/2019 Inactive Duragesic 100 mcg/hr transdermal patch RxNorm: 928142 2 Application TD Q48H for pain 07/29/2018 08/27/2018 Inactive ProAir HFA 90 mcg/actuation aerosol inhaler RxNorm: 564294 INHALE TWO PUFFS BY MOUTH EVERY 4 HOURS FOR WHEEZING OR SHORTNESS OF BREATH 07/27/201802/2018 Inactive Relistor 150 mg tablet RxNorm: 0866702 3 Tablet(s) PO QD 07/20/2018 0 08/15/2018 Inactive metformin ER 500 mg tablet,extended release 24 hr RxNorm: 86 0975 TAKE ONE TABLET BY MOUTH DAILY 07/08/2018 08/02/2018 Inactive fluoxetine 40 mg capsule RxNorm: 372016 TAKE ONE CAPSULE BY BENOIT TH EVERY MORNING 07/08/2018 10/05/2018 Inactive Xtampza ER 18 mg capsule sprinkle RxNorm: 5373635 1 Capsule(s) P O BID 07/08/2018 08/02/2018 Inactive Relistor 150 mg tablet RxNorm: 4045843 3 Tablet(s) PO QD 07/08/2018 0 07/12/2018 Inactive Synthroid 88 mcg tablet RxNorm: 850387 1 Tablet(s) PO Q D NEEDS UPDATED LABS BEFORE FURTHER REFILLS 06/23/2018 07/07/2018 Inactive fluoxetine 40 mg capsule RxNorm: 665389 TAKE ONE CAPSULE BY BENOIT TH EVERY MORNING 06/15/2018 09/26/2018 Inactive orphenadrine citrate ER 100 mg tablet,extended release RxNor m: 904907 TAKE ONE TABLET BY MOUTH TWICE A DAY FOR MUSCLE SPASM 06/15/2018 08/15/2018 Renu ctive Duragesic 100 mcg/hr transdermal patch RxNorm: 052089 2 Application TD Q48H for pain 05/30/2018 06/28/2018 Inactive ProAir HFA 90 mcg/actuation aerosol inhaler RxNorm: 741945 INHALE TWO PUFFS BY MOUTH EVERY 4 HOURS FOR WHEEZING OR SHORTNESS OF BREATH 05/19/201803/2018 Inactive Chantix Continuing Month Box 1 mg tablet RxNorm: 311587 TAKE ONE TABLET BY MOUTH TWICE A DAY 05/19/2018 08/15/2018 Inactive oxycodone 10 mg tablet RxNorm: 9587680 1-2 Tablet(s) PO QID as n eeded for pain 05/19/2018 07/07/2018 Inactive gabapentin 300 mg capsule RxNorm: 739220 TAKE ONE CAPSULE BY [facility] TWICE A DAY 05/18/2018 07/16/2018 Inactive ProAir HFA 90 mcg/actuation aerosol inhaler RxNorm: 302026 INHALE TWO PUFFS BY MOUTH EVERY 4 HOURS FOR WHEEZING OR SHORTNESS OF BREATH 05/04/201804/23 Inactive Augmentin 500 mg-125 mg tablet RxNorm: 976714 1 Tablet(s) PO BID 05/03/2018 Inactive oxycodone 10 mg tablet RxNorm: 3166424 1-2 Tablet(s) PO QID as n eeded for pain 04/21/2018 05/18/2018 Inactive Synthroid 88 mcg tablet RxNorm: 698108 1 Tablet(s) PO QD 04/15/2018 0 08/08/2018 Inactive Symbicort 160 mcg-4.5 mcg/actuation HFA aerosol inhaler RxNo rm: 7294312 2 Puff(s) INH BID 04/15/2018 04/10/2019 Inactive Premarin 0.45 mg tablet RxNorm: 378415 1 Tablet(s) PO QD 04/15/2018 0 08/03/2018 Inactive ProAir HFA 90 mcg/actuation aerosol inhaler RxNorm: 567729 2 Puff(s) INH Q4H prn for wheezing or shortness of breath 04/15/2018 05/03/2018 Inactive metformin ER 500 mg tablet,extended release 24 hr RxNorm: 86 0975 1 Tablet(s) PO QD 04/11/2018 07/07/2018 Inactive omeprazole 40 mg capsule,delayed release RxNorm: 424632 TAKE ONE CAPSULE BY MOUTH DAILY 04/10/2018 06/08/2018 Inactive Synthroid 88 mcg tablet RxNorm: 180486 1 Tablet(s) PO QD 04/04/2018 0 04/14/2018 Inactive Synthroid 88 mcg tablet RxNorm: 625780 1 Tablet(s) PO QD 04/04/2018 0 04/03/2018 Inactive orphenadrine citrate ER 100 mg tablet,extended release RxNor m: 904629 1 Tablet(s) PO BID for muscle spasm 04/04/2018 05/03/2018 Inactive metformin ER 500 mg tablet,extended release 24 hr RxNorm: 86 0975 1 Tablet(s) PO QD NEEDS UPDATED LABS 03/31/2018 04/11/2018 Inactive doxycycline hyclate 100 mg capsule RxNorm: 7791608 1 Capsule(s) PO BID 03/31/2018 04/09/2018 Inactive prednisone 20 mg tablet RxNorm: 680605 3 Tablet(s) PO T ID for 3 days then 1 po BID for 3 days then one daily for 3 days 03/31/2018 07/06/2018 Inactiv e Chantix Continuing Month Box 1 mg tablet RxNorm: 879576 TAKE ONE TABLET BY MOUTH TWICE A DAY 03/25/2018 03/30/2018 Inactive oxycodone 10 mg tablet RxNorm: 7798433 1-2 Tablet(s) PO QID as n eeded for pain 03/21/2018 04/20/2018 Inactive Daliresp 500 mcg tablet RxNorm: 5175499 1 Tablet(s) PO QD 03/15/2018 08/22/2018 Inactive metformin ER 500 mg tablet,extended release 24 hr RxNorm: 86 0975 1 Tablet(s) PO QD NEEDS UPDATED LABS 03/14/2018 03/31/2018 Inactive nystatin 100,000 unit/mL oral suspension RxNorm: 104175 5 Chio liter(s) PO QID 03/02/2018 03/15/2018 Inactive nystatin 100,000 unit/mL oral suspension RxNorm: 281571 5 Chio liter(s) PO QID 03/02/2018 03/01/2018 Inactive oxycodone 10 mg tablet RxNorm: 9675102 1-2 Tablet(s) PO QID as n eeded for pain 02/16/2018 03/20/2018 Inactive fluoxetine 20 mg capsule RxNorm: 955727 1 Capsule(s) PO QD 02/15/20 18 08/02/2018 Inactive metformin ER 500 mg tablet,extended release 24 hr RxNorm: 86 0975 1 Tablet(s) PO QD Needs updated labs 02/14/2018 03/14/2018 Inactive cefdinir 300 mg capsule RxNorm: 530156 1 Capsule(s) PO BID 01/27/20 18 02/04/2018 Inactive orphenadrine citrate ER 100 mg tablet,extended release RxNor m: 190142 1 Tablet(s) PO BID for muscle spasm 01/26/2018 04/04/2018 Inactive gabapentin 300 mg capsule RxNorm: 799159 1 Capsule(s) PO BID 201704/17/2018 Inactive oxycodone 10 mg tablet RxNorm: 6879215 1-2 Tablet(s) PO QID as n eeded for pain 01/17/2018 02/15/2018 Inactive Duragesic 100 mcg/hr transdermal patch RxNorm: 678037 2 Application TD Q48H for pain 01/17/2018 02/15/2018 Inactive gabapentin 300 mg capsule RxNorm: 854484 TAKE ONE CAPSULE BY MO UTH TWICE A DAY 12/20/2017 01/18/2018 Inactive fluoxetine 40 mg capsule RxNorm: 927756 TAKE ONE CAPSULE BY BENOIT TH EVERY MORNING 12/15/2017 03/14/2018 Inactive [employer] Ultra Test strips RxNorm: TEST DAILY 11/04/2017 02/01/2018 Inactive gabapentin 300 mg capsule RxNorm: 604046 1 Capsule(s) P O TID replaces BID dosing 10/26/2017 02/22/2018 Inactive oxycodone 10 mg tablet RxNorm: 6938148 1-2 Tablet(s) PO QID as n eeded for pain 10/18/2017 01/16/2018 Inactive Duragesic 100 mcg/hr transdermal patch RxNorm: 297649 2 Application TD Q48H for pain 10/18/2017 11/16/2017 Inactive gabapentin 300 mg capsule RxNorm: 086926 1 Capsule(s) PO BID 201610/25/2017 Inactive Abilify 5 mg tablet RxNorm: 145571 1 Tablet(s) PO QAM 09/23/201702/2017 Inactive gabapentin 300 mg capsule RxNorm: 742882 1 Capsule(s) PO BID 201610/17/2017 Inactive oxycodone 10 mg tablet RxNorm: 9009969 1-2 Tablet(s) PO QID as n eeded for pain 09/15/2017 10/17/2017 Inactive Duragesic 100 mcg/hr transdermal patch RxNorm: 003891 2 Application TD Q48H for pain 09/15/2017 10/14/2017 Inactive Duragesic 100 mcg/hr transdermal patch RxNorm: 546343 2 Application TD Q48H for pain 09/15/2017 10/24/2019 Inactive oxycodone 10 mg tablet RxNorm: 3458989 1-2 Tablet(s) PO QID as n eeded for pain 09/15/2017 08/15/2018 Inactive Daliresp 500 mcg tablet RxNorm: 8241127 1 Tablet(s) PO QD 09/06/2017 03/15/2018 Inactive Ventolin HFA 90 mcg/actuation aerosol inhaler RxNorm: 215062 2 Puff(s) INH Q4H as needed 09/02/2017 05/19/2018 Inactive oxycodone 10 mg tablet RxNorm: 2515031 1-2 Tablet(s) PO QID as n eeded for pain 08/17/2017 09/14/2017 Inactive Duragesic 100 mcg/hr transdermal patch RxNorm: 760438 2 Application TD Q48H for pain 08/17/2017 09/14/2017 Inactive fluoxetine 40 mg capsule RxNorm: 495669 Capsule(s) TAKE ONE CAPSULE BY MOUTH EVERY MORNING 08/17/2017 12/14/2017 Inactive Pulmicort 1 mg/2 mL suspension for nebulization RxNorm: 6168 19 1 Unit Dose INH BID Dx: COPD (J44.9) 08/16/2017 08/22/2018 Inactive gabapentin 300 mg capsule RxNorm: 775022 1 Capsule(s) PO QHS 201610/18/2017 Inactive fluoxetine 20 mg capsule RxNorm: 966849 1 Capsule(s) PO QD 08/12/20 17 02/14/2018 Inactive Abilify 2 mg tablet RxNorm: 172428 1 Tablet(s) PO QD TA KE ONE TABLET BY MOUTH DAILY 08/12/2017 10/25/2017 Inactive metformin ER 500 mg tablet,extended release 24 hr RxNorm: 86 0975 1 Tablet(s) PO QD 08/10/2017 02/14/2018 Inactive Synthroid 112 mcg tablet RxNorm: 361637 1 Tablet(s) PO QD 08/10/2017 04/15/2018 Inactive oxycodone 10 mg tablet RxNorm: 8732840 1-2 Tablet(s) PO QID as n eeded for pain 07/19/2017 08/16/2017 Inactive Duragesic 100 mcg/hr transdermal patch RxNorm: 258676 2 Application TD Q48H for pain 07/19/2017 08/16/2017 Inactive Ventolin HFA 90 mcg/actuation aerosol inhaler RxNorm: 918057 2 Puff(s) INH Q4H as needed 07/12/2017 09/02/2017 Inactive Abilify 2 mg tablet RxNorm: 288922 1 Tablet(s) PO QD TA KE ONE TABLET BY MOUTH DAILY 07/06/2017 08/11/2017 Inactive gabapentin 800 mg tablet RxNorm: 252179 1 Tablet(s) PO TID 06/22/2007/05/2017 Inactive Chantix Starting Month Box 0.5 mg (11)-1 mg (42) table ts in dose pack RxNorm: 170372 TAKE BY MOUTH INSTRUCTED - PER PACKAGE INSTRUCTIONS 06/0707/04/2017 Inactive Ventolin HFA 90 mcg/actuation aerosol inhaler RxNorm: 654637 2 Puff(s) INH Q4H as needed 05/26/2017 07/12/2017 Inactive Duragesic 100 mcg/hr transdermal patch RxNorm: 277012 2 Application TD Q48H for pain 05/19/2017 06/17/2017 Inactive oxycodone 10 mg tablet RxNorm: 3745981 1-2 Tablet(s) PO QID as n eeded for pain 05/19/2017 07/18/2017 Inactive Abilify 2 mg tablet RxNorm: 382939 TAKE ONE TABLET BY MOUTH DAILY 0 05/10/2017 07/05/2017 Inactive Synthroid 112 mcg tablet RxNorm: 148540 1 Tablet(s) PO QD 05/06/2017 08/10/2017 Inactive metformin ER 500 mg tablet,extended release 24 hr RxNorm: 86 0975 1 Tablet(s) PO QD 05/06/2017 08/10/2017 Inactive Topamax 100 mg tablet RxNorm: 523444 1 Tablet(s) PO QHS 05/06/2017 Inactive Premarin 0.45 mg tablet RxNorm: 504799 1 Tablet(s) PO QD 05/06/2017 0 04/15/2018 Inactive orphenadrine citrate ER 100 mg tablet,extended release RxNor m: 497497 1 Tablet(s) PO TID for muscle spasm--replaces methocarbamol 04/29/2017 Inactive oxycodone 10 mg tablet RxNorm: 7545175 1-2 Tablet(s) PO QID as n eeded for pain 04/21/2017 05/18/2017 Inactive Duragesic 100 mcg/hr transdermal patch RxNorm: 810997 2 Application TD Q48H for pain 04/21/2017 05/18/2017 Inactive fluoxetine 40 mg capsule RxNorm: 398139 Capsule(s) TAKE ONE CAPSULE BY MOUTH EVERY MORNING 04/20/2017 08/17/2017 Inactive Ventolin HFA 90 mcg/actuation aerosol inhaler RxNorm: 448870 2 Puff(s) INH Q4H as needed 04/05/2017 05/26/2017 Inactive Symbicort 160 mcg-4.5 mcg/actuation HFA aerosol inhaler RxNo rm: 0895238 2 Puff(s) INH BID 03/30/2017 04/15/2018 Inactive Spiriva with HandiHaler 18 mcg and inhalation capsules RxNor m: 363200 1 Capsule(s) INH QD USING HANDIHALER 03/30/2017 02/12/2019 Inactive Duragesic 100 mcg/hr transdermal patch RxNorm: 761576 2 Application TD Q48H for pain 03/18/2017 04/16/2017 Inactive oxycodone 10 mg tablet RxNorm: 1271423 1-2 Tablet(s) PO QID as n eeded for pain 03/18/2017 04/20/2017 Inactive metformin ER 500 mg tablet,extended release 24 hr RxNorm: 86 0975 Tablet(s) TAKE ONE TABLET BY MOUTH DAILY 03/01/2017 05/06/2017 Inactive Premarin 0.45 mg tablet RxNorm: 606496 Tablet(s) TAKE ONE TABLE T BY MOUTH DAILY 03/01/2017 05/06/2017 Inactive Synthroid 112 mcg tablet RxNorm: 138123 Tablet(s) TAKE ONE TABLET BY MOUTH DAILY 03/01/2017 05/06/2017 Inactive Daliresp 500 mcg tablet RxNorm: 0547368 1 Tablet(s) PO QD 03/01/2017 09/06/2017 Inactive 16.2 mg-0.1037 mg-0.0194 mg tablet RxNorm: 0330047 Tablet(s) PO PRN for gas and cramping 02/23/2017 04/28/2017 Inactive TAKE TWO TABLET S BY MOUTH THREE TIMES A DAY NEEDED FOR GAS AND CRAMPING gabapentin 800 mg tablet RxNorm: 171701 1 Tablet(s) PO TID repl aces 600mg 02/23/2017 04/28/2017 Inactive Duragesic 100 mcg/hr transdermal patch RxNorm: 248462 2 Application TD Q48H for pain 02/17/2017 03/17/2017 Inactive fluoxetine 20 mg capsule RxNorm: 497948 1 Capsule(s) PO QD 02/18/20 17 08/12/2017 Inactive oxycodone 20 mg tablet RxNorm: 5054271 1 Tablet(s) PO QID as nee ded for pain 02/17/2017 03/17/2017 Inactive Ventolin HFA 90 mcg/actuation aerosol inhaler RxNorm: 470715 INHALE TWO PUFFS BY MOUTH EVERY 4 HOURS NEEDED 02/15/2017 04/05/2017 Inactive Silvadene 1 % topical cream RxNorm: 196135 1 Application TOP BI D to burn area 02/01/2017 09/22/2017 Inactive Topamax 100 mg tablet RxNorm: 715390 TAKE ONE TABLET BY MOUTH EVERY NIGHT AT BEDTIME 01/29/2017 05/06/2017 Inactive Chantix Starting Month Box 0.5 mg (11)-1 mg (42) table ts in dose pack RxNorm: 338495 Tablet(s) PO as directed 01/29/2017 06/01/2017 Inactive Abilify 2 mg tablet RxNorm: 676393 TAKE ONE TABLET BY MOUTH DAILY 0 01/26/2017 04/25/2017 Inactive Chantix Starting Month Box 0.5 mg (11)-1 mg (42) table ts in dose pack RxNorm: 846816 Tablet(s) PO as directed 01/20/2017 01/28/2017 Inactive gabapentin 600 mg tablet RxNorm: 150871 1 Tablet(s) PO TID 01/21/20 17 02/22/2017 Inactive Chantix Continuing Month Box 1 mg tablet RxNorm: 042420 1 Table t(s) PO BID 12/31/2016 06/01/2017 Inactive Spiriva with HandiHaler 18 mcg and inhalation capsules RxNor m: 969398 INHALE THE ENTIRE CONTENTS OF 1 CAPSULE ONCE A DAY USING HANDIHALER 12/31/201607/2017 Inactive Synthroid 112 mcg tablet RxNorm: 552866 TAKE ONE TABLET BY MOUT H DAILY 12/30/2016 03/01/2017 Inactive metformin ER 500 mg tablet,extended release 24 hr RxNorm: 86 0975 TAKE ONE TABLET BY MOUTH DAILY 12/30/2016 03/01/2017 Inactive Premarin 0.45 mg tablet RxNorm: 345908 TAKE ONE TABLET BY MOUTH DAILY 12/30/2016 03/01/2017 Inactive omeprazole 40 mg capsule,delayed release RxNorm: 644427 TAKE ONE CAPSULE BY MOUTH DAILY 12/30/2016 01/25/2018 Inactive Ventolin HFA 90 mcg/actuation aerosol inhaler RxNorm: 543691 INHALE TWO PUFFS BY MOUTH EVERY 4 HOURS NEEDED 12/28/2016 02/13/2017 Inactive fluoxetine 40 mg capsule RxNorm: 977062 TAKE ONE CAPSULE BY BENOIT TH EVERY MORNING 12/15/2016 04/20/2017 Inactive Chantix Continuing Month Box 1 mg tablet RxNorm: 998370 TAKE ONE TABLET BY MOUTH TWICE A DAY 12/04/2016 12/31/2016 Inactive doxycycline hyclate 100 mg capsule RxNorm: 6176146 1 Capsule(s) PO BID 12/01/2016 12/07/2016 Inactive Levaquin 750 mg tablet RxNorm: 222671 1 Tablet(s) PO QD 12/01/2016 Inactive Abilify 2 mg tablet RxNorm: 726195 TAKE ONE TABLET BY MOUTH DAILY 0 11/25/2016 11/30/2016 Inactive Ventolin HFA 90 mcg/actuation aerosol inhaler RxNorm: 432688 INHALE TWO PUFFS BY MOUTH EVERY 4 HOURS NEEDED 11/02/2016 12/19/2016 Inactive Chantix Continuing Month Box 1 mg tablet RxNorm: 494397 Tablet(s) PO as directed 10/30/2016 12/03/2016 Inactive Symbicort 160 mcg-4.5 mcg/actuation HFA aerosol inhaler RxNo rm: 7367072 INHALE TWO PUFFS TWO TIMES A DAY 10/30/2016 03/30/2017 Inactive Abilify 2 mg tablet RxNorm: 293198 1 Tablet(s) PO QD 10/27/201611/24 Inactive amoxicillin 500 mg capsule RxNorm: 486427 1 Capsule(s) PO TID 10/1410/23/2016 Inactive amoxicillin 500 mg capsule RxNorm: 368702 1 Capsule(s) PO TID 10/1410/13/2016 Inactive Synthroid 112 mcg tablet RxNorm: 868740 TAKE ONE TABLET BY MOUT H DAILY 09/28/2016 12/29/2016 Inactive Topamax 100 mg tablet RxNorm: 842979 TAKE ONE TABLET BY MOUTH EVERY NIGHT AT BEDTIME 09/28/2016 01/28/2017 Inactive Premarin 0.45 mg tablet RxNorm: 715984 TAKE ONE TABLET BY MOUTH DAILY 09/28/2016 12/29/2016 Inactive metformin ER 500 mg tablet,extended release 24 hr RxNorm: 86 0975 TAKE ONE TABLET BY MOUTH DAILY 09/28/2016 12/29/2016 Inactive Ventolin HFA 90 mcg/actuation aerosol inhaler RxNorm: 931274 INHALE TWO PUFFS BY MOUTH EVERY 4 HOURS NEEDED 09/22/2016 10/23/2016 Inactive Pulmicort 1 mg/2 mL suspension for nebulization RxNorm: 6168 19 1 Unit Dose INH BID Dx: COPD (J44.9) 09/10/2016 08/16/2017 Inactive Pulmicort 1 mg/2 mL suspension for nebulization RxNorm: 6168 19 1 Unit Dose INH BID 09/10/2016 09/09/2016 Inactive Brovana 15 mcg/2 mL solution for nebulization RxNorm: 840539 1 Unit Dose INH BID Dx: COPD (J44.9) 09/10/2016 01/25/2018 Inactive Brovana 15 mcg/2 mL solution for nebulization RxNorm: 432249 1 Unit Dose INH BID 09/10/2016 09/09/2016 Inactive ipratropium-albuterol 0.5 mg-3 mg(2.5 mg base)/3 mL ne bulization soln RxNorm: 3026341 1 Unit Dose INH Q4H as needed Dx: COPD (J44.9) 09/10/2016 0 02/12/2019 Inactive orphenadrine citrate ER 100 mg tablet,extended release RxNor m: 335234 1 Tablet(s) PO BID for muscle spasm--replaces methocarbamol 09/09/2016 Inactive Chantix Continuing Month Box 1 mg tablet RxNorm: 560909 Tablet(s) PO as directed 09/09/2016 10/30/2016 Inactive orphenadrine citrate ER 100 mg tablet,extended release RxNor m: 393110 1 Tablet(s) PO BID for muscle spasm 09/09/2016 09/08/2016 Inactive Spiriva with HandiHaler 18 mcg and inhalation capsules RxNor m: 723497 INHALE THE ENTIRE CONTENTS OF 1 CAPSULE ONCE A DAY USING HANDIHALER 09/01/201605/2017 Inactive Daliresp 500 mcg tablet RxNorm: 7767482 1 Tablet(s) PO QD 08/27/2016 03/01/2017 Inactive prednisone 20 mg tablet RxNorm: 952670 3 Tablet(s) PO T ID for 3 days then 1 po BID for 3 days then one daily for 3 days 08/26/2016 04/28/2017 Inactiv e Wellbutrin XL 300 mg 24 hr tablet, extended release RxNorm: 620260 TAKE ONE TABLET BY MOUTH EVERY MORNING 07/29/2016 10/26/2016 Inactive gabapentin 600 mg tablet RxNorm: 639947 1 Tablet(s) PO BID 06/26/20 16 12/22/2016 Inactive fluoxetine 40 mg capsule RxNorm: 005510 TAKE ONE CAPSULE BY BENOIT TH EVERY MORNING 06/24/2016 11/20/2016 Inactive Duragesic 100 mcg/hr transdermal patch RxNorm: 651362 2 Application TD Q48H for pain 06/05/2016 07/04/2016 Inactive oxycodone 10 mg tablet RxNorm: 2307909 1-2 Tablet(s) PO QID as n eeded for pain 06/05/2016 03/17/2017 Inactive Belladonna-Phenobarbital 48 mg tablet,extended release RxNor m: 2 Tablet(s) PO TID 06/05/2016 01/19/2017 Inactive Premarin 0.45 mg tablet RxNorm: 784173 TAKE ONE TABLET BY MOUTH DAILY 05/27/2016 09/23/2016 Inactive Topamax 100 mg tablet RxNorm: 279182 TAKE ONE TABLET BY MOUTH EVERY NIGHT AT BEDTIME 05/27/2016 09/27/2016 Inactive Synthroid 112 mcg tablet RxNorm: 068941 TAKE ONE TABLET BY MOUT H DAILY 05/27/2016 09/23/2016 Inactive metformin ER 500 mg tablet,extended release 24 hr RxNorm: 86 0975 TAKE ONE TABLET BY MOUTH DAILY 05/27/2016 09/23/2016 Inactive Symbicort 160 mcg-4.5 mcg/actuation HFA aerosol inhaler RxNo rm: 9465200 INHALE TWO PUFFS TWO TIMES A DAY 05/27/2016 10/23/2016 Inactive Ventolin HFA 90 mcg/actuation aerosol inhaler RxNorm: 241147 INHALE TWO PUFFS BY MOUTH EVERY 4 HOURS NEEDED 05/21/2016 07/07/2016 Inactive omeprazole 40 mg capsule,delayed release RxNorm: 215732 1 Capsu le(s) PO QD 05/06/2016 08/03/2016 Inactive metformin ER 500 mg tablet,extended release 24 hr RxNorm: 86 0975 TAKE ONE TABLET BY MOUTH DAILY 04/23/2016 05/22/2016 Inactive methocarbamol 750 mg tablet RxNorm: 576745 2 Tablet(s) PO TID as needed for muscle spasm 04/23/2016 09/08/2016 Inactive Synthroid 112 mcg tablet RxNorm: 406934 TAKE ONE TABLET BY MOUT H DAILY 04/23/2016 05/22/2016 Inactive Spiriva with HandiHaler 18 mcg and inhalation capsules RxNor m: 140245 INHALE THE ENTIRE CONTENTS OF 1 CAPSULE ONCE A DAY USING HANDIHALER 04/09/201608/2016 Inactive Diflucan 100 mg tablet RxNorm: 600701 1 Tablet(s) PO QD 04/08/2016 Inactive doxycycline hyclate 100 mg capsule RxNorm: 7148759 1 Capsule(s) PO BID 04/08/2016 04/17/2016 Inactive doxycycline hyclate 100 mg capsule RxNorm: 5147149 1 Capsule(s) PO BID 04/08/2016 04/07/2016 Inactive Diflucan 100 mg tablet RxNorm: 330374 1 Tablet(s) PO QD 04/08/2016 Inactive ondansetron HCl 4 mg tablet RxNorm: 146477 1 Tablet(s) PO Q4H as needed for nausea and vomiting 04/08/2016 09/22/2017 Inactive gabapentin 600 mg tablet RxNorm: 242667 TAKE ONE TABLET BY MOUT H TWICE A DAY 03/24/2016 06/25/2016 Inactive Synthroid 112 mcg tablet RxNorm: 549068 TAKE ONE TABLET BY MOUT H DAILY 02/25/2016 04/22/2016 Inactive Levaquin 500 mg tablet RxNorm: 134447 1 Tablet(s) PO QD 01/23/2016 Inactive prednisone 20 mg tablet RxNorm: 730670 1 Tablet(s) PO T ID for 3 days then 1 po BID for 3 days then one daily for 3 days 01/23/2016 08/25/2016 Inactiv e [employer] Ultra Test strips RxNorm: TEST BLOOD SUGAR ONCE DAILY 250.00 01/09/2016 11/04/2017 Inactive methocarbamol 750 mg tablet RxNorm: 217658 2 Tablet(s) PO TID as needed for muscle spasm 01/09/2016 04/23/2016 Inactive lactulose 10 gram/15 mL oral solution RxNorm: 893755 [address](s) PO QD 01/09/2016 09/22/2017 Inactive TAKE 1 TABLESPOON BY MOUTH ONCE DAILY metformin ER 500 mg tablet,extended release 24 hr RxNorm: 86 0975 1 Tablet(s) PO QD 12/26/2015 04/22/2016 Inactive fluoxetine 20 mg capsule RxNorm: 701278 1 Capsule(s) PO QD 12/23/19 16 06/19/2016 Inactive Premarin 0.45 mg tablet RxNorm: 794232 TAKE ONE TABLET BY MOUTH DAILY 12/23/2015 05/20/2016 Inactive fluoxetine 40 mg capsule RxNorm: 153206 1 Capsule(s) PO QD 12/23/19 16 06/19/2016 Inactive TAKE ONE CAPSULE BY MOUTH EV JANKI MORNING azithromycin 500 mg tablet RxNorm: 945359 1 Tablet(s) PO QD 016 12/19/2015 Inactive Zofran 4 mg tablet RxNorm: 547622 1 Tablet(s) PO Q4H prn nausea /vomiting 12/13/2015 03/30/2018 Inactive azithromycin 500 mg tablet RxNorm: 968109 1 Tablet(s) PO QD 016 12/12/2015 Inactive Duragesic 100 mcg/hr transdermal patch RxNorm: 287526 2 Application TD Q48H for pain 12/09/2015 01/07/2016 Inactive oxycodone 10 mg tablet RxNorm: 4379742 1-2 Tablet(s) PO QID as n eeded for pain 12/09/2015 06/04/2016 Inactive Bactroban 2 % topical cream RxNorm: 189207 Application TOP BID 11/2208/25/2016 Inactive doxycycline hyclate 100 mg capsule RxNorm: 9715385 1 Capsule(s) PO BID 12/03/2015 12/12/2015 Inactive Topamax 100 mg tablet RxNorm: 442997 TAKE ONE TABLET BY MOUTH EVERY NIGHT AT BEDTIME 11/25/2015 05/22/2016 Inactive Symbicort 160 mcg-4.5 mcg/actuation HFA aerosol inhaler RxNo rm: 3857979 INHALE TWO PUFFS TWO TIMES A DAY 11/25/2015 05/22/2016 Inactive Synthroid 112 mcg tablet RxNorm: 656113 Tablet(s) TAKE ONE TABLET BY MOUTH DAILY 11/25/2015 02/22/2016 Inactive omeprazole 40 mg capsule,delayed release RxNorm: 356379 1 Capsu le(s) PO QD 11/12/2015 05/05/2016 Inactive oxycodone 10 mg tablet RxNorm: 2107236 1-2 Tablet(s) PO QID as n eeded for pain 11/05/2015 12/08/2015 Inactive Duragesic 100 mcg/hr transdermal patch RxNorm: 607816 2 Application TD Q48H for pain 11/05/2015 12/04/2015 Inactive omeprazole 40 mg capsule,delayed release RxNorm: 137474 1 Capsu le(s) PO QD 10/07/2015 11/11/2015 Inactive Januvia 100 mg tablet RxNorm: 442506 TAKE ONE TABLET BY MOUTH DAILY 09/11/2015 12/25/2015 Inactive Zithromax 500 mg tablet RxNorm: 353120 1 Tablet(s) PO QD 09/10/2015 1 Inactive prednisone 20 mg tablet RxNorm: 013864 1 Tablet(s) PO T ID for 3 days then 1 po BID for 3 days then one daily for 3 days 09/10/2015 08/25/2016 Inactiv e Wellbutrin XL 300 mg 24 hr tablet, extended release RxNorm: 467173 1 Tablet(s) PO QAM 09/10/2015 12/02/2015 Inactive Topamax 100 mg tablet RxNorm: 891172 TAKE ONE TABLET BY MOUTH EVERY NIGHT AT BEDTIME 09/02/2015 11/24/2015 Inactive Synthroid 112 mcg tablet RxNorm: 591506 TAKE ONE TABLET BY MOUT H DAILY 09/02/2015 11/25/2015 Inactive methocarbamol 750 mg tablet RxNorm: 273909 2 Tablet(s) PO TID as needed for muscle spasm 08/15/2015 01/09/2016 Inactive Wellbutrin XL 150 mg 24 hr tablet, extended release RxNorm: 270326 TAKE ONE TABLET BY MOUTH EVERY MORNING 08/13/2015 08/13/2015 Inactive gabapentin 600 mg tablet RxNorm: 191119 1 Tablet(s) PO BID 08/13/20 15 02/08/2016 Inactive Wellbutrin XL 300 mg 24 hr tablet, extended release RxNorm: 055642 1 Tablet(s) PO QAM 08/06/2015 09/09/2015 Inactive Wellbutrin XL 150 mg 24 hr tablet, extended release RxNorm: 912925 1 Tablet(s) PO QAM 07/18/2015 08/05/2015 Inactive prednisone 20 mg tablet RxNorm: 843379 1 Tablet(s) PO BID 07/18/2015 07/22/2015 Inactive doxycycline hyclate 100 mg tablet,delayed release RxNorm: 43 4018 1 Tablet(s) PO BID 07/18/2015 07/27/2015 Inactive pravastatin 40 mg tablet RxNorm: 543878 1 Tablet(s) PO QD NEEDS FASTING LAB 07/15/2015 07/14/2015 Inactive pravastatin 40 mg tablet RxNorm: 762447 1 Tablet(s) PO QD NEEDS FASTING LAB 07/15/2015 01/25/2018 Inactive Ventolin HFA 90 mcg/actuation aerosol inhaler RxNorm: 414944 2 Puff(s) INH Q4H 07/08/2015 07/07/2015 Inactive prn Premarin 0.45 mg tablet RxNorm: 777002 1 Tablet(s) PO QD 07/01/2015 0 12/22/2015 Inactive pravastatin 40 mg tablet RxNorm: 936814 1 Tablet(s) PO QD NEEDS FASTING LAB 06/14/2015 07/15/2015 Inactive Ventolin HFA 90 mcg/actuation aerosol inhaler RxNorm: 0421068 2 Puff(s) INH Q4H 06/06/2015 07/08/2015 Inactive prn albuterol sulfate 2.5 mg/3 mL (0.083 %) solution for n ebulization RxNorm: 835652 1 Unit Dose INH QID 05/30/2015 No Stop Date Active Duragesic 100 mcg/hr transdermal patch RxNorm: 094974 2 Application TD Q48H for pain 04/29/2015 05/28/2015 Inactive gabapentin 600 mg tablet RxNorm: 384290 1 Tablet(s) PO BID 04/11/20 15 08/13/2015 Inactive Onglyza 5 mg tablet RxNorm: 848862 1 Tablet(s) PO QD for blood suga r 04/10/2015 04/15/2015 Inactive [Brand Copay Card: RxBIN:[id number] PCN:CRISTIANA RxGRP:[id number] ID#:[id number]] methocarbamol 750 mg tablet RxNorm: 005321 2 Tablet(s) PO TID as needed for muscle spasm 03/28/2015 08/15/2015 Inactive pravastatin 40 mg tablet RxNorm: 473585 1 Tablet(s) PO QD 03/19/2015 03/18/2015 Inactive pravastatin 40 mg tablet RxNorm: 668911 1 Tablet(s) PO QD 03/19/2015 06/14/2015 Inactive lactulose 10 gram/15 mL oral solution RxNorm: 448295 [address]s) PO QD 03/07/2015 01/09/2016 Inactive TAKE 1 TABLESPOON BY MOUTH ONCE DAILY oxycodone 20 mg tablet RxNorm: 3790693 1 Tablet(s) PO QID as nee ded for pain 03/05/2015 07/08/2015 Inactive Topamax 100 mg tablet RxNorm: 485840 1 Tablet(s) PO QHS TAKE ONE TABLET BY MOUTH AT BEDTIME 02/25/2015 02/12/2019 Inactive metformin ER 500 mg tablet,extended release 24 hr RxNorm: 86 0975 1 Tablet(s) PO QD 02/11/2015 03/04/2015 Inactive take one tablet by mouth every day Daliresp 500 mcg tablet RxNorm: 7291330 1 Tablet(s) PO QD 02/11/2015 08/09/2015 Inactive Endocet 10 mg-325 mg tablet RxNorm: 9569094 1 Tablet(s) PO Q4H as needed for pain 01/23/2015 01/23/2015 Inactive gabapentin 600 mg tablet RxNorm: 279648 1 Tablet(s) PO BID 01/23/20 15 04/11/2015 Inactive methocarbamol 750 mg tablet RxNorm: 365813 2 Tablet(s) PO TID as needed for muscle spasm 01/15/2015 02/13/2015 Inactive fluoxetine 40 mg capsule RxNorm: 131998 1 Capsule(s) PO QD 01/14/20 15 12/23/2015 Inactive TAKE ONE CAPSULE BY MOUTH EV JANKI MORNING fluoxetine 20 mg capsule RxNorm: 789452 1 Capsule(s) PO QD 01/14/20 15 12/23/2015 Inactive Premarin 0.45 mg tablet RxNorm: 078468 1 Tablet(s) PO QD 01/02/2015 0 07/01/2015 Inactive Endocet 10 mg-325 mg tablet RxNorm: 9148299 1-2 Tablet(s) PO Q4H 02/12/2019 Inactive PRN PAIN Duragesic 100 mcg/hr transdermal patch RxNorm: 666825 2 Application TD Q48H for pain 12/25/2014 01/23/2015 Inactive Topamax 100 mg tablet RxNorm: 138103 1 Tablet(s) PO QHS TAKE ONE TABLET BY MOUTH AT BEDTIME 12/25/2014 02/24/2015 Inactive Tudorza Pressair 400 mcg/actuation breath activated RxNorm: 2643332 1 BID INHALE ONE PUFF INTO LUNGS TWO TIMES A DAY 12/17/2014 05/15/2015 Inactive Endocet 10 mg-325 mg tablet RxNorm: 8945043 1-2 Tablet(s) PO Q4H 12/19/2014 Inactive PRN PAIN Duragesic 100 mcg/hr transdermal patch RxNorm: 257597 2 Application TD Q48H for pain 11/20/2014 12/24/2014 Inactive [employer] Ultra Test strips RxNorm: TEST BLOOD SUGAR ONCE DAILY 250.00 11/16/2014 01/08/2016 Inactive omeprazole 40 mg capsule,delayed release RxNorm: 820984 1 Capsu le(s) PO QD 11/13/2014 11/12/2015 Inactive metformin ER 500 mg tablet,extended release 24 hr RxNorm: 86 0975 1 Tablet(s) PO QD 11/12/2014 02/11/2015 Inactive take one tablet by mouth every day Symbicort 160 mcg-4.5 mcg/actuation HFA aerosol inhaler RxNo rm: 4727067 2 Puff(s) INH BID 11/12/2014 03/11/2015 Inactive INHALE 2 PUFFS O RALLY TWO TIMES A DAY gabapentin 800 mg tablet RxNorm: 396902 1 Tablet(s) PO QD TAKE ONE TABLET BY MOUTH ONCE A DAY 10/22/2014 01/01/2015 Inactive Endocet 10 mg-325 mg tablet RxNorm: 7908616 1-2 Tablet(s) PO Q4H 11/15/2014 Inactive PRN PAIN Duragesic 100 mcg/hr transdermal patch RxNorm: 589647 2 Application TD Q48H for pain 10/17/2014 11/19/2014 Inactive gabapentin 800 mg tablet RxNorm: 861802 1 Tablet(s) PO QD TAKE ONE TABLET BY MOUTH ONCE A DAY 10/04/2014 10/21/2014 Inactive Premarin 0.9 mg tablet RxNorm: 183175 1 Tablet(s) PO QD TAKE ONE TABLET BY MOUTH ONCE A DAY 10/04/2014 01/01/2015 Inactive Spiriva with HandiHaler 18 mcg & inhalation capsules RxNorm: 486699 1 Capsule(s) INH QD 10/03/2014 04/30/2015 Inactive Levaquin 500 mg tablet RxNorm: 241571 1 Tablet(s) PO QD 10/03/2014 Inactive prednisone 20 mg tablet RxNorm: 101341 1 Tablet(s) PO QD 10/03/2014 1 12/09/2013 Inactive Duragesic 100 mcg/hr transdermal patch RxNorm: 704744 2 Application TD Q48H for pain 09/18/2014 10/16/2014 Inactive Endocet 10 mg-325 mg tablet RxNorm: 1197560 1-2 Tablet(s) PO Q4H 10/16/2014 Inactive PRN PAIN Synthroid 112 mcg tablet RxNorm: 724787 1 Tablet(s) QD 09/10/2014 Inactive Synthroid 112 mcg tablet RxNorm: 768150 TAKE ONE TABLET BY MOUTH ONE TIME A DAY. NEEDS LABS 09/10/2014 02/06/2015 Inactive omeprazole 40 mg capsule,delayed release RxNorm: 816462 1 Capsu le(s) PO QD 09/03/2014 11/13/2014 Inactive omeprazole 40 mg capsule,delayed release RxNorm: 408963 1 Capsu le(s) PO QD 09/03/2014 09/02/2014 Inactive Spiriva with HandiHaler 18 mcg & inhalation capsules RxNorm: 279972 1 Capsule(s) INH QD 08/27/2014 10/02/2014 Inactive gabapentin 600 mg tablet RxNorm: 269431 1 Tablet(s) PO BID 08/27/20 14 10/22/2014 Inactive Endocet 10 mg-325 mg tablet RxNorm: 8856617 1-2 Tablet(s) PO Q4H 09/17/2014 Inactive PRN PAIN fentanyl 100 mcg/hr transdermal patch RxNorm: 847746 1 Unit Dos e TD QD 08/21/2014 09/19/2014 Inactive Daliresp 500 mcg tablet RxNorm: 4889106 1 Tablet(s) PO QD 08/13/2014 02/11/2015 Inactive Synthroid 112 mcg tablet RxNorm: 704691 TAKE ONE TABLET BY MOUTH ONE TIME A DAY. NEEDS LABS 08/10/2014 09/10/2014 Inactive Endocet 10 mg-325 mg tablet RxNorm: 2869759 1-2 Tablet(s) PO Q4H 08/17/2014 Inactive PRN PAIN Duragesic 100 mcg/hr transdermal patch RxNorm: 067165 2 Application TD Q48H for pain 07/19/2014 09/17/2014 Inactive fluoxetine 40 mg capsule RxNorm: 644900 1 Capsule(s) PO QD 07/17/20 14 01/14/2015 Inactive TAKE ONE CAPSULE BY MOUTH EV JANKI MORNING fluoxetine 20 mg capsule RxNorm: 149616 1 Capsule(s) PO QD 07/17/20 14 01/14/2015 Inactive Spiriva with HandiHaler 18 mcg & inhalation capsules RxNorm: 266838 1 Capsule(s) INH QD 07/17/2014 08/26/2014 Inactive INHALE CONTENTS OF 1 CAPSULE(S) WITH HANDIHALER ONCE DAILY Zofran 4 mg tablet RxNorm: 159011 1 Tablet(s) PO Q4H prn nausea 07/25/2014 Inactive Synthroid 112 mcg tablet RxNorm: 471762 1 Tablet(s) PO QD 07/09/2014 07/09/2014 Inactive methocarbamol 750 mg tablet RxNorm: 156449 2 Tablet(s) PO TID as needed for muscle spasm 07/09/2014 09/06/2014 Inactive Synthroid 112 mcg tablet RxNorm: 250818 1 Tablet(s) PO QD - nee d labs 07/09/2014 08/07/2014 Inactive Medrol (Aníbal) 4 mg tablets in a dose pack RxNorm: 936093 6 Tablet(s) PO QD --then as directed 07/03/2014 07/08/2014 Inactive Tudorza Pressair 400 mcg/actuation breath activated RxNorm: 7980300 1 Puff(s) INH BID 07/03/2014 12/17/2014 Inactive cefdinir 300 mg capsule RxNorm: 224282 1 Capsule(s) PO BID 07/03/20 14 07/12/2014 Inactive Topamax 100 mg tablet RxNorm: 553408 Tablet(s) TAKE ONE TABLET BY MOUTH AT BEDTIME 07/02/2014 02/25/2015 Inactive Duragesic 100 mcg/hr transdermal patch RxNorm: 129746 2 Application TD Q48H for pain 06/25/2014 07/18/2014 Inactive Endocet 10 mg-325 mg tablet RxNorm: 4653126 1-2 Tablet(s) PO Q4H 07/18/2014 Inactive PRN PAIN metformin ER 500 mg tablet,extended release 24 hr RxNorm: 86 0975 1 Tablet(s) PO QD Needs labs 06/18/2014 07/01/2014 Inactive take one tablet by mouth every day Duragesic 100 mcg/hr transdermal patch RxNorm: 300547 2 Application TD Q48H for pain 05/22/2014 06/24/2014 Inactive Synthroid 112 mcg tablet RxNorm: 252039 1 Tablet(s) PO QD 05/22/2014 07/09/2014 Inactive Endocet 10 mg-325 mg tablet RxNorm: 6870557 1-2 Tablet(s) PO Q4H 06/20/2014 Inactive PRN PAIN Endocet 10 mg-325 mg tablet RxNorm: 6782324 1-2 Tablet(s) PO Q4H 05/21/2014 Inactive PRN PAIN Duragesic 100 mcg/hr transdermal patch RxNorm: 484990 2 Application TD Q48H for pain 04/25/2014 05/21/2014 Inactive Daliresp 500 mcg tablet RxNorm: 6357606 1 Tablet(s) PO QD 04/24/2014 08/13/2014 Inactive Symbicort 160 mcg-4.5 mcg/actuation HFA aerosol inhaler RxNo rm: 1947037 2 Puff(s) INH BID 04/24/2014 08/21/2014 Inactive INHALE 2 PUFFS O RALLY TWO TIMES A DAY metformin ER 500 mg tablet,extended release 24 hr RxNorm: 86 0975 1 Tablet(s) PO QD 04/24/2014 11/12/2014 Inactive TAKE ONE TABLET BY MOUTH EVERY DAY [AttnRPh:Saving Apply/Adjudicate RxGRP:LDMGRP RxBIN:[id number] RxPCN:2012 PCode:01 ID#:[id number]] Symbicort 160 mcg-4.5 mcg/actuation HFA aerosol inhaler RxNo rm: 3457749 2 Puff(s) INH BID 04/24/2014 11/12/2014 Inactive INHALE 2 PUFFS O RALLY TWO TIMES A DAY Premarin 0.9 mg tablet RxNorm: 925202 1 Tablet(s) PO QD 04/24/2014 Inactive TAKE ONE TABLET BY MOUTH EVERY DAY metformin ER 500 mg tablet,extended release 24 hr RxNorm: 86 0975 1 Tablet(s) PO QD Needs labs 04/24/2014 06/18/2014 Inactive TAKE ONE TABLET BY MOUTH EVERY DAY [AttnRPh:Saving Apply/Adjudicate RxGRP:LDMGRP RxBIN:[id number] RxPCN:2012 PCode:01 ID#:[id number]] gabapentin 800 mg tablet RxNorm: 334654 1 Tablet(s) PO QD 04/24/2014 10/04/2014 Inactive TAKE ONE TABLET BY MOUTH EVERY DAY Topamax 100 mg tablet RxNorm: 791480 1 Tablet(s) PO QHS 04/17/2014 Inactive Topamax 100 mg tablet RxNorm: 707337 TAKE ONE TABLET BY MOUTH A T BEDTIME 04/17/2014 07/01/2014 Inactive Tudorza Pressair 400 mcg/actuation breath activated RxNorm: 2583630 1 Puff(s) INH BID 04/11/2014 07/02/2014 Inactive Duragesic 100 mcg/hr transdermal patch RxNorm: 457002 2 Application TD Q48H for pain 03/27/2014 04/24/2014 Inactive Endocet 10 mg-325 mg tablet RxNorm: 9855425 1-2 Tablet(s) PO Q4H 04/24/2014 Inactive PRN PAIN Robaxin 750 mg tablet RxNorm: 305869 2 Tablet(s) PO TID as need ed for spasm 02/23/2014 03/28/2015 Inactive Duragesic 100 mcg/hr transdermal patch RxNorm: 166969 2 Application TD Q48H for pain 02/23/2014 No Stop Date Active Endocet 10 mg-325 mg tablet RxNorm: 3651136 1-2 Tablet(s) PO Q4H 03/23/2014 Inactive PRN PAIN Synthroid 112 mcg tablet RxNorm: 624697 1 Tablet(s) PO QD TAKE ONE TABLET BY MOUTH EVERY DAY 02/15/2014 05/22/2014 Inactive Zithromax 500 mg tablet RxNorm: 860478 1 Tablet(s) PO QD 01/30/2014 0 02/05/2014 Inactive Diflucan 100 mg tablet RxNorm: 819142 1 Tablet(s) PO QD 01/30/2014 Inactive prednisone 20 mg tablet RxNorm: 150119 1 Tablet(s) PO BID 01/30/2014 02/05/2014 Inactive fluoxetine 40 mg capsule RxNorm: 479711 1 Capsule(s) PO QD 01/23/20 14 07/16/2014 Inactive TAKE ONE CAPSULE BY MOUTH EV JANKI MORNING fluoxetine 40 mg capsule RxNorm: 004895 1 Capsule(s) PO QD 01/23/20 14 07/17/2014 Inactive TAKE ONE CAPSULE BY MOUTH EV JANKI MORNING cefdinir 300 mg capsule RxNorm: 522388 1 Capsule(s) PO BID 01/16/20 14 01/29/2014 Inactive Zithromax 500 mg tablet RxNorm: 267255 1 Tablet(s) PO QD 01/16/2014 0 01/22/2014 Inactive prednisone 20 mg tablet RxNorm: 178524 1 Tablet(s) PO BID 01/16/2014 01/22/2014 Inactive Spiriva with HandiHaler 18 mcg and inhalation capsules RxNor m: 121841 1 Capsule(s) INH QD 12/18/2013 07/17/2014 Inactive INHALE CONTENT S OF 1 CAPSULE(S) WITH HANDIHALER ONCE DAILY fluoxetine 20 mg capsule RxNorm: 173798 1 Capsule(s) PO QD 12/18/19 14 06/15/2014 Inactive Spiriva with HandiHaler 18 mcg & inhalation capsules RxNorm: 434473 1 Capsule(s) INH QD 12/18/2013 06/15/2014 Inactive INHALE CONTENTS OF 1 CAPSULE(S) WITH HANDIHALER ONCE DAILY fluoxetine 20 mg capsule RxNorm: 740938 1 Capsule(s) PO QD 12/18/19 14 07/17/2014 Inactive cefdinir 300 mg capsule RxNorm: 201063 2 Capsule(s) PO QD 12/12/2013 12/21/2013 Inactive Duragesic 100 mcg/hr transdermal patch RxNorm: 844099 2 Application TD Q48H for pain 12/08/2013 12/07/2013 Inactive Topamax 100 mg tablet RxNorm: 793860 1 Tablet(s) PO QHS 12/04/2013 Inactive Endocet 10 mg-325 mg tablet RxNorm: 2689794 1-2 Tablet(s) PO Q4H 12/26/2013 Inactive PRN PAIN Robaxin 750 mg tablet RxNorm: 259475 2 Tablet(s) PO TID as need ed for spasm 11/07/2013 01/05/2014 Inactive gabapentin 800 mg tablet RxNorm: 065752 1 Tablet(s) PO QD 10/16/2013 04/24/2014 Inactive TAKE ONE TABLET BY MOUTH EVERY DAY Symbicort 160 mcg-4.5 mcg/actuation HFA aerosol inhaler RxNo rm: 8773532 2 Puff(s) INH BID 10/16/2013 04/24/2014 Inactive INHALE 2 PUFFS O RALLY TWO TIMES A DAY Premarin 0.9 mg tablet RxNorm: 678015 1 Tablet(s) PO QD 10/16/2013 Inactive TAKE ONE TABLET BY MOUTH EVERY DAY metformin ER 500 mg tablet,extended release 24 hr RxNorm: 86 0975 1 Tablet(s) PO QD 10/16/2013 04/24/2014 Inactive TAKE ONE TABLET BY MOUTH EVERY DAY Daliresp 500 mcg tablet RxNorm: 4264079 1 Tablet(s) PO QD 10/16/2013 04/24/2014 Inactive Robaxin 750 mg tablet RxNorm: 758584 2 Tablet(s) PO TID as need ed for spasm 10/10/2013 11/06/2013 Inactive Duragesic 100 mcg/hr transdermal patch RxNorm: 495836 2 Application TD Q48H for pain 10/09/2013 No Stop Date Active Soma 350 mg tablet RxNorm: 894879 1 Tablet(s) PO TID 09/27/201310/09 Inactive TAKE ONE TABLET BY MOUTH THREE TIMES A D AY lactulose 10 gram/15 mL oral solution RxNorm: 197241 [address](s) PO QD 09/13/2013 03/07/2015 Inactive TAKE 1 TABLESPOON BY MOUTH ONCE DAILY Duragesic 100 mcg/hr transdermal patch RxNorm: 091776 2 Application TD Q48H for pain 09/06/2013 No Stop Date Active Endocet 10 mg-325 mg tablet RxNorm: 2107105 1-2 Tablet(s) PO Q4H 09/27/2013 Inactive PRN PAIN lancets 28 gauge RxNorm: Miscellaneous As needed for blo od glucose sticks 08/24/2013 No Stop Date Active 16.2 mg-0.1037 mg-0.0194 mg tablet RxNorm: 8018947 Tablet(s) PO PRN for gas and cramping 08/24/2013 01/19/2017 Inactive TAKE TWO TABLET S BY MOUTH THREE TIMES A DAY NEEDED FOR GAS AND CRAMPING Topamax 100 mg tablet RxNorm: 142565 1 Tablet(s) PO QHS 07/31/2013 Inactive Diflucan 100 mg tablet RxNorm: 801549 1 Tablet(s) PO QD 07/27/2013 Inactive cefdinir 300 mg capsule RxNorm: 209187 1 Capsule(s) PO BID 07/26/20 13 08/08/2013 Inactive Daliresp 500 mcg tablet RxNorm: 3500055 1 Tablet(s) PO QD 07/25/2013 10/15/2013 Inactive fluoxetine 40 mg capsule RxNorm: 218593 1 Capsule(s) PO QD 07/25/20 13 01/22/2014 Inactive TAKE ONE CAPSULE BY MOUTH EV JANKI MORNING Senokot-S 8.6 mg-50 mg tablet RxNorm: 6955588 1 Tablet(s) PO BID 10/25/2013 Inactive doxycycline hyclate 100 mg capsule RxNorm: 1054500 1 Capsule(s) PO BID 06/28/2013 07/07/2013 Inactive prednisone 20 mg tablet RxNorm: 644397 1 Tablet(s) PO BID 06/28/2013 07/04/2013 Inactive Zofran 4 mg tablet RxNorm: 469243 1 Tablet(s) PO Q4H prn nausea 03/201307/05/2013 Inactive Spiriva with HandiHaler 18 mcg & inhalation capsules RxNorm: 568709 1 Capsule(s) INH QD 06/26/2013 12/18/2013 Inactive INHALE CONTENTS OF 1 CAPSULE(S) WITH HANDIHALER ONCE DAILY Synthroid 112 mcg tablet RxNorm: 376954 1 Tablet(s) PO QD TAKE ONE TABLET BY MOUTH EVERY DAY 06/19/2013 02/15/2014 Inactive fluoxetine 20 mg capsule RxNorm: 553171 1 Capsule(s) PO QD 06/19/20 13 12/18/2013 Inactive Ventolin HFA 90 mcg/actuation Aerosol Inhaler RxNorm: 7805165 2 Puff(s) INH Q4H 06/05/2013 No Stop Date Active prn Soma 350 mg tablet RxNorm: 673638 1 Tablet(s) PO TID 06/05/201307/04 Inactive TAKE ONE TABLET BY MOUTH THREE TIMES A D AY prednisone 20 mg tablet RxNorm: 838308 1 Tablet(s) PO QD 05/31/2013 0 06/06/2013 Inactive Topamax 100 mg tablet RxNorm: 733562 1 Tablet(s) PO QHS 05/22/2013 Inactive Levaquin 500 mg tablet RxNorm: 193169 1 Tablet(s) PO QD 05/03/2013 Inactive Diflucan 100 mg tablet RxNorm: 444387 1 Tablet(s) PO QD 05/03/2013 Inactive Daliresp 500 mcg tablet RxNorm: 6269368 1 Tablet(s) PO QD 05/01/2013 07/24/2013 Inactive Daliresp 500 mcg tablet RxNorm: 0596957 1 Tablet(s) PO QD 05/01/2013 04/30/2013 Inactive gabapentin 800 mg tablet RxNorm: 056722 1 Tablet(s) PO QD 04/10/2013 10/06/2013 Inactive TAKE ONE TABLET BY MOUTH EVERY DAY metformin ER 500 mg tablet,extended release 24 hr RxNorm: 86 0977 1 Tablet(s) PO QD 04/10/2013 10/06/2013 Inactive TAKE ONE TABLET BY MOUTH EVERY DAY Premarin 0.9 mg tablet RxNorm: 499121 1 Tablet(s) PO QD 04/10/2013 Inactive TAKE ONE TABLET BY MOUTH EVERY DAY Symbicort 160 mcg-4.5 mcg/actuation HFA aerosol inhaler RxNo rm: 3747739 2 Puff(s) INH BID 04/10/2013 10/06/2013 Inactive INHALE 2 PUFFS O RALLY TWO TIMES A DAY Synthroid 112 mcg tablet RxNorm: 654998 1 Tablet(s) PO QD TAKE ONE TABLET BY MOUTH EVERY DAY 04/10/2013 06/18/2013 Inactive Ventolin HFA 90 mcg/actuation Aerosol Inhaler RxNorm: 254372 2 Puff(s) INH Q4H 04/10/2013 No Stop Date Active prn fentanyl 100 mcg/hr transdermal patch RxNorm: 954939 1 Unit Dos e TD QD 04/03/2013 05/02/2013 Inactive Endocet 10 mg-325 mg tablet RxNorm: 1323896 1-2 Tablet(s) PO Q4H 05/02/2013 Inactive PRN PAIN Topamax 100 mg tablet RxNorm: 393642 1 Tablet(s) PO QHS 03/13/2013 Inactive Reglan 10 mg tablet RxNorm: 650092 1 Tablet(s) PO QID b efore meals and at bedtime 03/13/2013 04/09/2015 Inactive fluoxetine 20 mg capsule RxNorm: 032775 1 Capsule(s) PO QD 02/28/20 13 05/27/2013 Inactive Ventolin HFA 90 mcg/actuation Aerosol Inhaler RxNorm: 164622 2 Puff(s) INH Q4H 02/13/2013 No Stop Date Active prn fluoxetine 40 mg capsule RxNorm: 499872 1 Capsule(s) PO QD 01/31/20 13 07/24/2013 Inactive TAKE ONE CAPSULE BY MOUTH EV JANKI MORNING Soma 350 mg tablet RxNorm: 290654 1 Tablet(s) PO TID 01/20/201302/18 Inactive TAKE ONE TABLET BY MOUTH THREE TIMES A D AY Endocet 10 mg-325 mg tablet RxNorm: 3033070 1-2 Tablet(s) PO Q4H 02/06/2013 Inactive PRN PAIN MS Contin 200 mg tablet,extended release RxNorm: 511579 1 Table t(s) PO BID 01/18/2013 02/06/2013 Inactive Ventolin HFA 90 mcg/actuation Aerosol Inhaler RxNorm: 590536 2 Puff(s) INH Q4H 01/04/2013 No Stop Date Active prn Spiriva with HandiHaler 18 mcg & inhalation capsules RxNorm: 536441 1 Capsule(s) INH QD 12/29/2012 06/25/2013 Inactive INHALE CONTENTS OF 1 CAPSULE(S) WITH HANDIHALER ONCE DAILY Spiriva with HandiHaler 18 mcg & inhalation capsules RxNorm: 145894 1 Capsule(s) INH QD 12/26/2012 12/28/2012 Inactive INHALE CONTENTS OF 1 CAPSULE(S) WITH HANDIHALER ONCE DAILY Synthroid 112 mcg tablet RxNorm: 326713 Tablet(s) PO TA KE ONE TABLET BY MOUTH EVERY DAY 12/26/2012 04/09/2013 Inactive Endocet 10 mg-325 mg tablet RxNorm: 8126595 1-2 Tablet(s) PO Q4H 01/17/2013 Inactive PRN PAIN MS Contin 200 mg tablet,extended release RxNorm: 281883 1 Table t(s) PO BID 12/21/2012 01/17/2013 Inactive fluoxetine 20 mg capsule RxNorm: 342129 1 Capsule(s) PO QD 12/06/19 13 02/26/2013 Inactive Synthroid 112 mcg tablet RxNorm: 110141 1 Tablet(s) PO QD 12/06/2012 02/12/2019 Inactive TAKE ONE TABLET BY MOUTH EVERY DAY Ventolin HFA 90 mcg/actuation Aerosol Inhaler RxNorm: 546783 2 Puff(s) INH Q4H 12/06/2012 No Stop Date Active prn Reglan 10 mg tablet RxNorm: 833388 1 Tablet(s) PO QID b efore meals and at bedtime 11/24/2012 03/12/2013 Inactive Topamax 100 mg tablet RxNorm: 294822 1 Tablet(s) PO QHS 11/16/2012 Inactive Ventolin HFA 90 mcg/actuation Aerosol Inhaler RxNorm: 946107 2 Puff(s) INH Q4H 11/09/2012 No Stop Date Active prn gabapentin 800 mg tablet RxNorm: 482111 1 Tablet(s) PO QD 10/27/2012 04/09/2013 Inactive TAKE ONE TABLET BY MOUTH EVERY DAY metformin ER 500 mg tablet,extended release 24 hr RxNorm: 86 0977 1 Tablet(s) PO QD 10/27/2012 04/09/2013 Inactive TAKE ONE TABLET BY MOUTH EVERY DAY Symbicort 160 mcg-4.5 mcg/actuation HFA Aerosol Inhaler RxNo rm: 0617976 2 Puff(s) INH BID 10/27/2012 04/09/2013 Inactive INHALE 2 PUFFS O RALLY TWO TIMES A DAY Premarin 0.9 mg tablet RxNorm: 232178 1 Tablet(s) PO QD 10/27/2012 Inactive TAKE ONE TABLET BY MOUTH EVERY DAY Endocet 10 mg-325 mg tablet RxNorm: 0918603 1-2 Tablet(s) PO Q4H 11/24/2012 Inactive PRN PAIN MS Contin 200 mg tablet,extended release RxNorm: 237632 1 Table t(s) PO BID 10/26/2012 11/24/2012 Inactive Soma 350 mg tablet RxNorm: 014298 1 Tablet(s) PO TID 10/04/201211/02 Inactive TAKE ONE TABLET BY MOUTH THREE TIMES A D AY Ventolin HFA 90 mcg/actuation Aerosol Inhaler RxNorm: 489883 2 Puff(s) INH Q4H 10/03/2012 No Stop Date Active prn Daliresp 500 mcg tablet RxNorm: 3286004 1 Tablet(s) PO QD 09/28/2012 09/27/2012 Inactive Daliresp 500 mcg tablet RxNorm: 2221106 1 Tablet(s) PO QD 09/28/2012 04/25/2013 Inactive fluoxetine 20 mg capsule RxNorm: 737127 1 Capsule(s) PO QD 09/05/2012/06/2012 Inactive Topamax 50 mg tablet RxNorm: 881129 Tablet(s) PO for 1w k then 1 po q HS for 1wk then 2 po q HS 08/29/2012 09/27/2012 Inactive TAKE 1/2 TABLET BY MOUTH AT BEDTIME FOR 1 WEEK, THEN 1 TABLET AT BEDTIME FOR 1 WEEK, THEN 2 TABLETS AT BEDTIME Topamax 100 mg tablet RxNorm: 372075 1 Tablet(s) PO QHS 08/29/2012 Inactive Ventolin HFA 90 mcg/actuation Aerosol Inhaler RxNorm: 768332 2 Puff(s) INH Q4H 08/19/2012 No Stop Date Active prn Ventolin HFA 90 mcg/actuation Aerosol Inhaler RxNorm: 325684 2 Puff(s) INH Q4H 08/15/2012 No Stop Date Active prn Synthroid 112 mcg tablet RxNorm: 585503 1 Tablet(s) PO QD 08/10/2012 11/07/2012 Inactive TAKE ONE TABLET BY MOUTH EVERY DAY Synthroid 112 mcg tablet RxNorm: 544563 1 Tablet(s) PO QD 08/01/2012 08/09/2012 Inactive TAKE ONE TABLET BY MOUTH EVERY DAY Reglan 10 mg tablet RxNorm: 586057 1 Tablet(s) PO QID b efore meals and at bedtime 08/01/2012 11/23/2012 Inactive fluoxetine 40 mg capsule RxNorm: 937184 1 Capsule(s) PO QD 08/01/2001/27/2013 Inactive TAKE ONE CAPSULE BY MOUTH EV JANKI MORNING Ventolin HFA 90 mcg/actuation Aerosol Inhaler RxNorm: 911526 2 Puff(s) INH Q4H 08/01/2012 No Stop Date Active prn Soma 350 mg tablet RxNorm: 280231 1 Tablet(s) PO TID 07/20/201208/18 Inactive TAKE ONE TABLET BY MOUTH THREE TIMES A D AY Spiriva with HandiHaler 18 mcg & inhalation capsules RxNorm: 335308 1 Capsule(s) INH 07/01/2012 12/25/2012 Inactive INHALE CONTENTS OF 1 CAPSULE(S) WITH HANDIHALER ONCE DAILY Zithromax 250 mg Tab RxNorm: 519581 2 Tablet(s) PO QD 06/28/201206/22 Inactive MS Contin 200 mg tablet,extended release RxNorm: 984563 1 Table t(s) PO BID 06/28/2012 07/27/2012 Inactive Endocet 10 mg-325 mg tablet RxNorm: 0725528 1-2 Tablet(s) PO Q4H 07/27/2012 Inactive PRN PAIN Topamax 100 mg tablet RxNorm: 874268 1 Tablet(s) PO QHS 06/28/2012 Inactive 16.2 mg-0.1037 mg-0.0194 mg tablet RxNorm: 7926132 Tablet(s) PO PRN for gas and cramping 06/08/2012 08/23/2013 Inactive TAKE TWO TABLET S BY MOUTH THREE TIMES A DAY NEEDED FOR GAS AND CRAMPING Ventolin HFA 90 mcg/actuation Aerosol Inhaler RxNorm: 624892 2 Puff(s) INH Q4H 05/23/2012 No Stop Date Active prn Ventolin HFA 90 mcg/actuation Aerosol Inhaler RxNorm: 774989 2 Puff(s) INH Q4H 05/11/2012 No Stop Date Active prn Synthroid 112 mcg tablet RxNorm: 047784 1 Tablet(s) PO QD 05/09/2012 07/31/2012 Inactive TAKE ONE TABLET BY MOUTH EVERY DAY gabapentin 800 mg tablet RxNorm: 053225 1 Tablet(s) PO QD 05/09/2012 10/26/2012 Inactive TAKE ONE TABLET BY MOUTH EVERY DAY fluoxetine 40 mg capsule RxNorm: 467253 1 Capsule(s) PO QD 05/09/2007/31/2012 Inactive TAKE ONE CAPSULE BY MOUTH EV JANKI MORNING metformin ER 500 mg tablet,extended release 24 hr RxNorm: 86 0977 1 Tablet(s) PO QD 05/09/2012 10/26/2012 Inactive TAKE ONE TABLET BY MOUTH EVERY DAY Premarin 0.9 mg tablet RxNorm: 566311 1 Tablet(s) PO QD 05/09/2012 Inactive TAKE ONE TABLET BY MOUTH EVERY DAY Symbicort 160 mcg-4.5 mcg/actuation HFA Aerosol Inhaler RxNo rm: 5697891 2 Puff(s) INH BID 05/09/2012 10/26/2012 Inactive INHALE 2 PUFFS O RALLY TWO TIMES A DAY Endocet 10 mg-325 mg Tab RxNorm: 2970594 1-2 Tablet(s) PO Q4H 04/2705/26/2012 Inactive PRN PAIN MS Contin 200 mg Tab RxNorm: 594299 1 Tablet(s) PO BID 04/26/201202/2012 Inactive Ventolin HFA 90 mcg/actuation Aerosol Inhaler RxNorm: 899424 2 Puff(s) INH Q4H 04/25/2012 05/10/2012 Inactive prn Soma 350 mg tablet RxNorm: 052618 2 Tablet(s) PO TID 04/19/201207/19 Inactive TAKE ONE TABLET BY MOUTH THREE TIMES A D AY Ventolin HFA 90 mcg/actuation Aerosol Inhaler RxNorm: 231580 2 Puff(s) INH Q4H 04/12/2012 04/24/2012 Inactive prn Reglan 10 mg tablet RxNorm: 280537 1 Tablet(s) PO QID b efore meals and at bedtime 04/11/2012 07/31/2012 Inactive MS Contin 200 mg Tab RxNorm: 664129 1 Tablet(s) PO BID 03/30/201202/2012 Inactive Endocet 10 mg-325 mg Tab RxNorm: 3302138 1-2 Tablet(s) PO Q4H 03/3004/26/2012 Inactive PRN PAIN MS Contin 200 mg Tab RxNorm: 147069 1 Tablet(s) PO BID 03/02/201206/2012 Inactive Endocet 10 mg-325 mg Tab RxNorm: 8382013 1-2 Tablet(s) PO Q4H 03/0203/29/2012 Inactive PRN PAIN Daliresp 500 mcg tablet RxNorm: 9047263 1 Tablet(s) PO QD 03/01/2012 09/28/2012 Inactive MS Contin 200 mg Tab RxNorm: 458465 1 Tablet(s) PO BID 02/02/201208/2012 Inactive Endocet 10 mg-325 mg Tab RxNorm: 4844161 1-2 Tablet(s) PO Q4H 02/0103/01/2012 Inactive PRN PAIN fluoxetine 40 mg capsule RxNorm: 518146 1 Capsule(s) PO QD 02/02/2008/01/2012 Inactive TAKE ONE CAPSULE BY MOUTH EV JANKI MORNING Synthroid 112 mcg Tab RxNorm: 602403 1 Tablet(s) PO QD 01/18/2012 Inactive TAKE ONE TABLET BY MOUTH EVERY DAY lactulose 10 gram/15 mL oral solution RxNorm: 590883 [address]s) PO QD 01/18/2012 No Stop Date Active TAKE 1 TABLESPOON BY MOUTH ONCE DAILY Ventolin HFA 90 mcg/actuation Aerosol Inhaler RxNorm: 898648 2 Puff(s) INH Q4H 01/18/2012 04/11/2012 Inactive prn MS Contin 200 mg Tab RxNorm: 561929 1 Tablet(s) PO BID 01/05/201210/2012 Inactive Endocet 10 mg-325 mg Tab RxNorm: 3196384 1-2 Tablet(s) PO Q4H 01/0502/01/2012 Inactive PRN PAIN ProAir HFA 90 mcg/Actuation Aerosol Inhaler RxNorm: 141054 2 Pu ff(s) INH Q4H 12/21/2011 No Stop Date Active prn for wheezing or shortness of breath Spiriva with HandiHaler 18 mcg & inhalation Caps RxNorm: 580 261 1 Capsule(s) INH 12/21/2011 06/30/2012 Inactive INHALE CONTENTS OF 1 CAPSULE(S) WITH HANDIHALER ONCE DAILY Reglan 10 mg Tab RxNorm: 014087 1 Tablet(s) PO QID before meals and at bedtime 12/21/2011 04/10/2012 Inactive Synthroid 112 mcg Tab RxNorm: 104197 1 Tablet(s) PO QD 12/21/2011 Inactive TAKE ONE TABLET BY MOUTH EVERY DAY Endocet 10 mg-325 mg Tab RxNorm: 7636980 1-2 Tablet(s) PO Q4H 11/2512/24/2011 Inactive PRN PAIN MS Contin 200 mg Tab RxNorm: 413230 1 Tablet(s) PO BID 11/25/201112/2011 Inactive lactulose 10 gram/15 mL Oral Soln RxNorm: 023581 Milliliter(s) PO 1 No Stop Date Active TAKE 1 TABLESPOON BY MOUTH O NCE DAILY lactulose 10 gram/15 mL Oral Soln RxNorm: 465955 Milliliter(s) PO 1 12/12/2010 11/20/2011 Inactive TAKE 1 TABLESPOON BY MOUTH O NCE DAILY Premarin 0.9 mg Tab RxNorm: 836415 1 Tablet(s) PO QD 10/12/201105/08 Inactive TAKE ONE TABLET BY MOUTH EVERY DAY fluoxetine 20 mg capsule RxNorm: 609641 1 Capsule(s) PO QD 10/12/2009/05/2012 Inactive TAKE ONE CAPSULE BY MOUTH EV AJNKI DAY Synthroid 112 mcg Tab RxNorm: 596756 1 Tablet(s) PO QD 10/12/2011 Inactive TAKE ONE TABLET BY MOUTH EVERY DAY metformin ER 500 mg 24 hr Tab RxNorm: 781036 1 Tablet(s) PO QD 09/2311/10/2011 Inactive TAKE ONE TABLET BY MOUTH GLYNN RY DAY Synthroid 112 mcg Tab RxNorm: 467709 1 Tablet(s) PO QD 10/12/2011 Inactive TAKE ONE TABLET BY MOUTH EVERY DAY metformin ER 500 mg 24 hr Tab RxNorm: 335385 1 Tablet(s) PO QD 09/2310/11/2011 Inactive TAKE ONE TABLET BY MOUTH GLYNN RY DAY Prevacid 30 mg Cap RxNorm: 660722 Capsule(s) PO 10/12/2011 01/25/2012 Inactive TAKE ONE CAPSULE BY MOUTH EVERY DAY Symbicort 160 mcg-4.5 mcg/actuation HFA Aerosol Inhaler RxNo rm: 3164796 2 Puff(s) INH BID 10/12/2011 05/08/2012 Inactive INHALE 2 PUFFS O RALLY TWO TIMES A DAY gabapentin 800 mg Tab RxNorm: 691300 1 Tablet(s) PO QD 10/12/2011 Inactive TAKE ONE TABLET BY MOUTH EVERY DAY MS Contin 200 mg Tab RxNorm: 723990 1 Tablet(s) PO BID 09/23/201111/2010 Inactive Endocet 10 mg-325 mg Tab RxNorm: 4271310 1-2 Tablet(s) PO Q4H 09/2310/22/2011 Inactive PRN PAIN Endocet 10 mg-325 mg Tab RxNorm: 2588278 1-2 Tablet(s) PO Q4H 08/2109/19/2011 Inactive PRN PAIN MS Contin 200 mg Tab RxNorm: 137773 1 Tablet(s) PO BID 08/21/2011 Inactive Diflucan 100 mg Tab RxNorm: 724182 1 Tablet(s) PO QD 08/10/201108/16 Inactive cefdinir 300 mg Cap RxNorm: 450859 2 Capsule(s) PO QD 08/10/201107/24 Inactive Reglan 10 mg Tab RxNorm: 109222 1 Tablet(s) PO AC & HS 07/15/2011 Inactive Endocet 10 mg-325 mg Tab RxNorm: 9100903 1-2 Tablet(s) PO Q4H 07/1508/13/2011 Inactive PRN PAIN One Touch Ultra Test strips RxNorm: Miscellaneous BID 06/11/201101/16/2014 Inactive TEST TWO TIMES A DAY lactulose 10 gram/15 mL Oral Soln RxNorm: 450109 Milliliter(s) PO 0 06/10/2011 10/11/2011 Inactive TAKE 1 TABLESPOON BY MOUTH O NCE DAILY Chantix Continuing Month Aníbal 1 mg Tab RxNorm: 878876 Tablet(s) PO 0 06/10/2011 11/02/2011 Inactive TAKE DIRECTED - PER PACK[employer] GE INSTRUCTIONS fluoxetine 40 mg Cap RxNorm: 137378 Capsule(s) PO 06/10/2011 02/02/20 Inactive TAKE ONE CAPSULE BY MOUTH EVERY MORNING Chantix Continuing Month Aníbal 1 mg Tab RxNorm: 667854 Ta blet(s) PO TAKE DIRECTED - PER PACKAGE INSTRUCTIONS 05/13/2011 06/09/2011 Inactive Soma 350 mg Tab RxNorm: 496587 Tablet(s) PO TAKE ON E TABLET BY MOUTH THREE TIMES A DAY 05/13/2011 04/18/2012 Inactive Chantix Continuing Month Aníbal 1 mg Tab RxNorm: 398232 Ta blet(s) PO as directed per package instructions. 04/22/2011 05/12/2011 Inactive Symbicort 160 mcg-4.5 mcg/Actuation HFA Aerosol Inhaler RxNo rm: [id number] HFA Aerosol Inhaler INH INHALE 2 PUFFS ORALLY TWO TIMES A DAY 04/13/2011 Inactive Synthroid 112 mcg Tab RxNorm: 358582 Tablet(s) PO TAKE ONE TABLET BY MOUTH EVERY DAY 04/13/2011 10/12/2011 Inactive Premarin 0.9 mg Tab RxNorm: 119934 Tablet(s) PO TAKE ON E TABLET BY MOUTH EVERY DAY 04/13/2011 10/12/2011 Inactive gabapentin 800 mg Tab RxNorm: 455487 Tablet(s) PO TAKE ONE TABLET BY MOUTH EVERY DAY 04/13/2011 10/12/2011 Inactive Prevacid 30 mg Cap RxNorm: 631310 1 Capsule(s) PO QD 04/13/201110/11 Inactive Spiriva with HandiHaler 18 mcg & inhalation Caps RxNorm: 580 261 Capsule(s) INH INHALE CONTENTS OF 1 CAPSULE(S) WITH HANDIHALER ONCE DAILY 04/13/2011 12/21/2011 Inactive metformin ER 500 mg 24 hr Tab RxNorm: 483156 Tablet(s) PO TAKE ONE TABLET BY MOUTH EVERY DAY 04/13/2011 10/12/2011 Inactive Soma 350 mg Tab RxNorm: 332720 1 Tablet(s) PO QID 03/30/2011 02/13/20 19 Inactive fluoxetine 20 mg Cap RxNorm: 084600 Capsule(s) PO TAKE ONE CAPSULE BY MOUTH EVERY DAY 03/25/2011 10/12/2011 Inactive cefdinir 300 mg Cap RxNorm: 371889 2 Capsule(s) PO QD 03/19/201105/2011 Inactive 16.2 mg-0.1037 mg-0.0194 mg Tab RxNorm: 2164329 2 Tablet(s) PO TID PRN for gas and cramping 03/16/2011 07/13/2011 Inactive Soma 350 mg Tab RxNorm: 862769 2 Tablet(s) PO TID 03/16/2011 03/29/20 11 Inactive Chantix Starting Month Aníbal 0.5 mg (11)-1 mg (3x14) Tab s in a Dose Pack RxNorm: 352333 Tablet(s) PO as directed 03/02/2011 No Stop Date Active diazepam 10 mg Tab RxNorm: 824465 1 Tablet(s) PO BID 02/10/201101/19 Inactive Zofran 4 mg tablet RxNorm: 105394 1 Tablet(s) PO Q4H prn nausea 02/16/2011 Inactive Diflucan 100 mg Tab RxNorm: 413923 1 Tablet(s) PO QD 01/18/201101/24 Inactive Premarin 0.625 mg/g Vaginal Cream RxNorm: 577501 VAG In sert 1gm vaginally at bedtime 3 times weekly 01/18/2011 02/12/2019 Inactive loratadine 10 mg Tab RxNorm: 9925072 1 Tablet(s) PO QD 12/17/201003/2012 Inactive Spiriva with HandiHaler 18 mcg & inhalation Caps RxNorm: 580 261 1 Capsule(s) INH QD 12/17/2010 04/12/2011 Inactive Diflucan 100 mg Tab RxNorm: 248496 1 Tablet(s) PO QD 12/17/201012/23 Inactive diazepam 10 mg Tab RxNorm: 594878 1 Tablet(s) PO BID and PRN 201002/12/2019 Inactive One Touch Ultra Test Strips RxNorm: InVt BID Zainab t blood sugar at least twice daily. 11/11/2010 06/11/2011 Inactive fluoxetine 40 mg Cap RxNorm: 037617 1 Capsule(s) PO QAM 11/11/2010 Inactive diazepam 10 mg Tab RxNorm: 436938 1 Tablet(s) PO BID and PRN 200911/12/2010 Inactive Bactrim DS 800 mg-160 mg Tab RxNorm: 409907 1 Tablet(s) PO BID 09/2210/15/2010 Inactive fluoxetine 20 mg Cap RxNorm: 043276 1 Capsule(s) PO QD 10/02/201008/2011 Inactive Bactrim DS 800 mg-160 mg Tab RxNorm: 120047 1 Tablet(s) PO BID 01/201010/03/2010 Inactive Zofran 4 mg Tab RxNorm: 765188 1 Tablet(s) PO Q4H prn nausea 200910/16/2010 Inactive 16.2 mg-0.1037 mg-0.0194 mg Tab RxNorm: 4110287 2 Tablet(s) PO TID PRN for gas and cramping 09/17/2010 10/21/2010 Inactive Gabapentin 800 mg Tab RxNorm: 661327 1 Tablet(s) PO QD 09/16/2010 Inactive ProAir HFA 90 mcg/Actuation Aerosol Inhaler RxNorm: 566240 2 Puff(s) INH Q4H prn shortness of breath 09/15/2010 12/13/2010 Inactive gabapentin 800 mg Tab RxNorm: 585904 1 Tablet(s) PO QD 09/15/2010 Inactive Prevacid 30 mg Cap RxNorm: 110506 1 Capsule(s) PO QD 09/15/201004/12 Inactive loratadine 10 mg Tab RxNorm: 2550201 1 Tablet(s) PO QD 09/15/2010 Inactive Premarin 0.9 mg Tab RxNorm: 758133 1 Tablet(s) PO QD 09/15/201004/12 Inactive Synthroid 112 mcg Tab RxNorm: 312673 1 Tablet(s) PO QD 09/15/2010 Inactive metformin ER 500 mg 24 hr Tab RxNorm: 495303 1 Tablet(s) PO QD 08/2304/12/2011 Inactive Symbicort 160 mcg-4.5 mcg/Actuation Inhalation HFA Aer osol Inhaler RxNorm: 7219390 2 Puff(s) INH BID 09/15/2010 04/12/2011 Inactive diazepam 10 mg Tab RxNorm: 956624 1 Tablet(s) PO BID and PRN 200910/13/2010 Inactive Phentermine 37.5 mg Cap RxNorm: 072580 1 Capsule(s) PO QD 09/02/2010 11/02/2011 Inactive ProAir HFA 90 mcg/Actuation Aerosol Inhaler RxNorm: 830735 2 Puff(s) INH Q4H prn shortness of breath 08/07/2010 No Stop Date Active Premarin 0.9 mg Tab RxNorm: 120802 1 Tablet(s) PO QD 08/07/201009/14 Inactive Loratadine 10 mg Tab RxNorm: 0016955 1 Tablet(s) PO QD 08/07/2010 Inactive Lactulose 10 gram/15 mL Oral Soln RxNorm: 185228 1 Unit Dose PO QD 08/07/2010 02/12/2019 Inactive Zofran 4 mg Tab RxNorm: 013120 1 Tablet(s) PO Q4H prn nausea 2009 No Stop Date Active Gabapentin 800 mg Tab RxNorm: 693578 1 Tablet(s) PO QD 08/07/2010 Inactive Synthroid 112 mcg Tab RxNorm: 189593 1 Tablet(s) PO QD 08/07/2010 Inactive Metformin ER 500 mg 24 hr Tab RxNorm: 263220 1 Tablet(s) PO QD 07/2309/14/2010 Inactive Vitamin D 1,000 unit Tab RxNorm: 844625 1 Tablet(s) PO TID 08/07/2002/12/2019 Inactive Symbicort 160 mcg-4.5 mcg/Actuation Inhalation HFA Aer osol Inhaler RxNorm: 1043933 2 Puff(s) INH BID 08/07/2010 09/14/2010 Inactive Prevacid 30 mg Cap RxNorm: 526608 1 Capsule(s) PO QD 08/07/201009/14 Inactive Metformin ER 500 mg 24 hr Tab RxNorm: 321470 1 Tablet(s) PO QD 06/2308/06/2010 Inactive Vitamin D 1,000 unit Tab RxNorm: 765736 1 Tablet(s) PO TID 07/14/2008/06/2010 Inactive Synthroid 112 mcg Tab RxNorm: 264112 1 Tablet(s) PO QD 07/14/2010 Inactive Lactulose 10 gram/15 mL Oral Soln RxNorm: 868062 1 Unit Dose PO QD 07/14/2010 08/06/2010 Inactive Levaquin 500 mg Tab RxNorm: 019104 1 Tablet(s) PO QD 07/14/201007/27 Inactive Premarin 0.9 mg Tab RxNorm: 393156 1 Tablet(s) PO QD 07/14/201008/06 Inactive ProAir HFA 90 mcg/Actuation Aerosol Inhaler RxNorm: 367145 2 Puff(s) INH Q4H prn shortness of breath 07/14/2010 No Stop Date Active Prevacid 30 mg Cap RxNorm: 437076 1 Capsule(s) PO QD 07/14/201008/06 Inactive Zofran 4 mg Tab RxNorm: 415751 1 Tablet(s) PO Q4H prn nausea 2009 No Stop Date Active Symbicort 160 mcg-4.5 mcg/Actuation Inhalation HFA Aer osol Inhaler RxNorm: 5854662 2 Puff(s) INH BID 07/14/2010 08/06/2010 Inactive Loratadine 10 mg Tab RxNorm: 7824559 1 Tablet(s) PO QD 07/14/2010 Inactive Gabapentin 800 mg Tab RxNorm: 406737 1 Tablet(s) PO QD 07/14/2010 Inactive Metformin ER 500 mg 24 hr Tab RxNorm: 430643 1 Tablet(s) PO 010 07/13/2010 Inactive Diazepam 10 mg Tab RxNorm: 140240 1 Tablet(s) PO BID and PRN 200909/06/2010 Inactive Premarin 0.9 mg Tab RxNorm: 805025 1 Tablet(s) PO QD 06/09/201007/13 Inactive Zofran 4 mg Tab RxNorm: 386394 1 Tablet(s) PO Q4H prn nausea 2009 No Stop Date Active ProAir HFA 90 mcg/Actuation Aerosol Inhaler RxNorm: 742275 2 Puff(s) INH Q4H prn shortness of breath 06/09/2010 No Stop Date Active Gabapentin 800 mg Tab RxNorm: 610644 1 Tablet(s) PO QD 06/09/2010 Inactive Loratadine 10 mg Tab RxNorm: 4548089 1 Tablet(s) PO QD 06/09/2010 Inactive Lactulose 10 gram/15 mL Oral Soln RxNorm: 898346 1 Unit Dose PO QD 06/09/2010 07/13/2010 Inactive Prevacid 30 mg Cap RxNorm: 871490 1 Capsule(s) PO QD 06/09/201007/13 Inactive Synthroid 112 mcg Tab RxNorm: 742866 1 Tablet(s) PO QD 06/09/2010 Inactive Symbicort 160 mcg-4.5 mcg/Actuation Inhalation HFA Aer osol Inhaler RxNorm: 1428931 2 Puff(s) INH BID 06/09/2010 07/13/2010 Inactive Omnicef 300 mg Cap RxNorm: 197331 2 Capsule(s) PO QD 05/07/201005/20 Inactive Metformin 500 mg Tab RxNorm: 908797 1 Tablet(s) PO QD 05/06/201005/22 Inactive ProAir HFA 90 mcg/Actuation Aerosol Inhaler RxNorm: 621598 2 Puff(s) INH Q4H prn shortness of breath 05/06/2010 No Stop Date Active lactulose 10 gram/15 mL Oral Soln RxNorm: 588972 1 Unit Dose PO QD 05/06/2010 06/10/2011 Inactive Loratadine 10 mg Tab RxNorm: 8453525 1 Tablet(s) PO QD 05/06/2010 Inactive Synthroid 112 mcg Tab RxNorm: 374438 1 Tablet(s) PO QD 05/06/2010 Inactive Symbicort 160 mcg-4.5 mcg/Actuation Inhalation HFA Aer osol Inhaler RxNorm: 7441468 2 Puff(s) INH BID 05/06/2010 06/08/2010 Inactive Gabapentin 800 mg Tab RxNorm: 710555 1 Tablet(s) PO QD 05/06/2010 Inactive 16.2 mg-0.1037 mg-0.0194 mg Tab RxNorm: 5676603 2 Tablet(s) PO TID PRN for gas and cramping 05/06/2010 05/12/2010 Inactive Zofran 4 mg Tab RxNorm: 656727 1 Tablet(s) PO Q4H prn nausea 200904/13/2010 Inactive MS Contin 60 mg Tab RxNorm: 217397 3 Tablet(s) PO BID 04/09/201004/22 Inactive Soma 350 mg Tab RxNorm: 929975 2 Tablet(s) PO TID 04/09/2010 05/08/20 Inactive Symbicort 160 mcg-4.5 mcg/Actuation Inhalation HFA Aer osol Inhaler RxNorm: 3514730 2 Puff(s) INH BID 04/08/2010 05/05/2010 Inactive Doxycycline 100 mg Cap RxNorm: 2879556 1 Capsule(s) PO BID 04/08/20 10 04/17/2010 Inactive Triamterene-Hydrochlorothiazide 37.5 mg-25 mg Cap RxNorm: 19 8316 1 Capsule(s) PO QAM 04/08/2010 09/04/2010 Inactive fluoxetine 40 mg Cap RxNorm: 420472 1 Capsule(s) PO QAM 04/08/2010 Inactive Morphine SR 120 mg multiphase 24 hr Cap RxNorm: 300255 1 Capsul e(s) PO 03/11/2010 04/07/2010 Inactive Endocet 10 mg-325 mg Tab RxNorm: 8714070 1-2 Tablet(s) PO Q4H UT N PAIN 03/11/2010 04/09/2010 Inactive Savella 100 mg Tab RxNorm: 352057 1 Tablet(s) PO BID 03/10/201004/09 Inactive Soma 350 mg Tab RxNorm: 088283 1 Tablet(s) PO TID prn spasm 010 04/09/2010 Inactive Savella 100 mg Tab RxNorm: 900868 1 Tablet(s) PO BID 02/03/201004/09 Inactive Aspirin 81 mg Tab RxNorm: 940112 1 Tablet(s) PO QD No Start Date Active Zyrtec 10 mg Tab RxNorm: 9728196 1 Tablet(s) PO QD No Start Date Active One Touch Ultra Test Strips RxNorm: Misc test at least t wice daily. No Start Date Active coenzyme Q10 200 mg capsule RxNorm: 891069 1 Capsule(s) PO QD No Star t Date Active One Touch Ultra Test Strips RxNorm: InVt BID Zainab t blood sugar at least twice daily. No Start Date 11/10/2010 Inactive Gabapentin 800 mg Tab RxNorm: 893312 1 Tablet(s) PO QD No Start Date 05/05/2010 Inactive Abilify 5 mg tablet RxNorm: 413817 1 Tablet(s) PO QD No Start Date Inactive Chantix 1 mg Tab RxNorm: 048168 1 Tablet(s) PO BID No Start Date 10/22 Inactive Ozempic 0.25 mg or 0.5 mg (2 mg/1.5 mL) subcutaneous p en injector RxNorm: 7000318 .25 Milligram(s) SQ QW No Start Date 07/04/2019 Inactive lancets 28 gauge RxNorm: Miscellaneous As needed for blo od glucose sticks No Start Date 08/23/2013 Inactive potassium chloride ER 20 mEq tablet,extended release RxNorm: 065643 2 Tablet(s) PO QD No Start Date 09/26/2018 Inactive Ventolin HFA 90 mcg/actuation Aerosol Inhaler RxNorm: 323186 2 Puff(s) INH Q4H prn No Start Date 01/17/2012 Inactive potassium chloride ER 20 mEq tablet,extended release RxNorm: 779212 2 Tablet(s) PO QD No Start Date 10/19/2018 Inactive Januvia 100 mg tablet RxNorm: 353571 1 Tablet(s) PO QD No Start Date 09/10/2015 Inactive Medrol (Aníbal) 4 mg Tabs in a Dose Pack RxNorm: 149876 Tablet(s) PO N o Start Date 08/09/2011 Inactive as directed Zithromax Z-Aníbal 250 mg Tab RxNorm: 482194 Tablet(s) PO No Start Date 01/25/2012 Inactive as directed vitamin B6-vitamin E-magnesium tablet RxNorm: 1 Tablet(s ) PO QHS with INH No Start Date 03/30/2018 Inactive prednisone 20 mg Tab RxNorm: 273058 1 Tablet(s) PO TID for 1wk then 1 po BID for 1wk No Start Date 01/25/2012 Inactive furosemide 40 mg tablet RxNorm: 362418 1 Tablet(s) PO QAM No Start Date 10/09/2018 Inactive Vitamin D3 1000 units Capsule RxNorm: 1 Capsule(s) PO TID No S tart Date 03/19/2015 Inactive Zofran 4 mg Tab RxNorm: 087026 1 Tablet(s) PO Q4H prn nausea No Sta rt Date 04/13/2010 Inactive Premarin 0.625 mg/g Vaginal Cream RxNorm: 157623 1 Gram (s) VAG QHS 3 times a week No Start Date 09/22/2017 Inactive oxycodone 10 mg tablet RxNorm: 3216101 1-2 Tablet(s) PO QID as n eeded for pain No Start Date 11/04/2015 Inactive Nicoderm CQ 21 mg/24 hr daily Patch RxNorm: 395249 1 Applicatio n TD QD No Start Date 08/05/2015 Inactive Topamax 50 mg tablet RxNorm: 402166 1/2 Tablet(s) PO QH S for 1wk then 1 po q HS for 1wk then 2 po q HS No Start Date 06/27/2012 Inactive Chantix Starting Month Aníbal 0.5 mg (11)-1 mg (3x14) Tab s in a Dose Pack RxNorm: 395330 Tablet(s) PO as directed No Start Date 03/01/2011 Inactive Trulicity 0.75 mg/0.5 mL subcutaneous pen injector RxNorm: 1 098731 Milliliter(s) SQ No Start Date 07/04/2019 Inactive Medrol (Aníbal) 4 mg Tabs in a Dose Pack RxNorm: 689492 Tablet(s) PO N o Start Date 01/25/2012 Inactive as directed Duragesic 100 mcg/hr Transderm Patch RxNorm: 219852 2 A pplication TD Q48H for pain No Start Date 09/05/2013 Inactive Premarin 0.9 mg Tab RxNorm: 493839 1 Tablet(s) PO QD No Start Date Inactive Zithromax Z-Aníbal 250 mg Tab RxNorm: 585181 Tablet(s) PO as direc chinmay No Start Date 01/25/2012 Inactive ondansetron 8 mg disintegrating tablet RxNorm: 151845 1 Tablet(s) PO Q6H as needed No Start Date 10/10/2018 Inactive oxycodone 15 mg tablet RxNorm: 4286972 1 Tablet(s) PO QID as nee ded for pain No Start Date 03/05/2019 Inactive ProAir HFA 90 mcg/Actuation Aerosol Inhaler RxNorm: 334853 2 Puff(s) INH Q4H prn for wheezing or shortness of breath No Start Date 12/21/2011 Inactive pravastatin 40 mg tablet RxNorm: 297779 1/2 Tablet(s) PO QOD No Sta rt Date 04/09/2015 Inactive ipratropium-albuterol 0.5 mg-3 mg(2.5 mg base)/3 mL ne bulization soln RxNorm: 8017484 1 Unit Dose INH Q4H as needed No Start Date 09/09/2016 Inactive furosemide 40 mg tablet RxNorm: 184236 1 Tablet(s) PO QAM as ne eded No Start Date 09/24/2019 Inactive Vitamin D2 oral RxNorm: 4018 oral No Start Date 03/18/2015 Inacti ve pravastatin 40 mg tablet RxNorm: 674481 1/2 Tablet(s) PO QD No Star t Date 04/09/2015 Inactive ondansetron HCl 4 mg tablet RxNorm: 387755 1 Tablet(s) PO Q4H as needed for nausea and vomiting No Start Date 04/07/2016 Inactive furosemide 40 mg tablet RxNorm: 257550 2 Tablet(s) PO QAM No Start Date 09/26/2018 Inactive gabapentin 800 mg tablet RxNorm: 779133 1/2 Tablet(s) PO BID No Sta rt Date 06/21/2017 Inactive gabapentin 800 mg tablet RxNorm: 748232 1/2 Tablet(s) PO BID No Sta rt Date 07/05/2017 Inactive ProAir HFA 90 mcg/Actuation Aerosol Inhaler RxNorm: 283330 2 Puff(s) INH Q4H prn shortness of breath No Start Date 05/05/2010 Inactive scopolamine 1 mg over 3 days transdermal patch RxNorm: 14734 2 1 Application TD behind ear. Take off after three days No Start Date 10/10/2018 Inactive Metformin 500 mg Tab RxNorm: 751265 1 Tablet(s) PO QD No Start Date 0 05/05/2010 Inactive MS Contin 200 mg Tab RxNorm: 760317 1 Tablet(s) PO BID No Start Date 08/20/2011 Inactive Belladonna-Phenobarbital 48 mg tablet,extended release RxNor m: 2 Tablet(s) PO TID No Start Date 06/04/2016 Inactive Synthroid 112 mcg Tab RxNorm: 737428 1 Tablet(s) PO QD No Start Date 05/05/2010 Inactive Zegerid 40 mg-1.1 gram Cap RxNorm: 218523 1 Capsule(s) PO QD No Sta rt Date 01/25/2012 Inactive Premarin 0.625 mg/g Vaginal Cream RxNorm: 929068 VAG In sert 1gm vaginally at bedtime 3 times weekly No Start Date 01/17/2011 Inactive potassium chloride ER 20 mEq tablet,extended release RxNorm: 963120 1 Tablet(s) PO QD No Start Date 04/24/2019 Inactive methocarbamol 750 mg tablet RxNorm: 957294 2 Tablet(s) PO TID as needed for muscle spasm No Start Date 07/08/2014 Inactive Biaxin XL Aníbal 500 mg 24 hr Tab RxNorm: 453706 Tablet(s) PO as d irected No Start Date 04/24/2013 Inactive Vitamin D3 1,000 unit tablet RxNorm: 161662 3 Tablet(s) PO QD No St art Date 06/01/2017 Inactive Morphine SR 120 mg multiphase 24 hr Cap RxNorm: 538320 1 Capsul e(s) PO BID No Start Date 04/09/2010 Inactive Silvadene 1 % topical cream RxNorm: 954274 1 Application TOP BI D to burn area No Start Date 01/31/2017 Inactive Prednisone 20 mg Tab RxNorm: 168811 1 Tablet(s) PO TID for 3days then BID for 4days No Start Date 01/25/2012 Inactive gabapentin 600 mg tablet RxNorm: 715113 1 Tablet(s) PO BID No Start Date 01/21/2015 Inactive topiramate 50 mg tablet RxNorm: 113466 1 Tablet(s) PO QHS No Start Date 03/30/2018 Inactive Januvia 100 mg tablet RxNorm: 710531 1/2 Tablet(s) PO QD No Start D ate 12/25/2015 Inactive Diazepam 10 mg Tab RxNorm: 738695 1 Tablet(s) PO BID and PRN No Sta rt Date 06/08/2010 Inactive Medication Administered No Medication Administered data Immunizations Vaccine Codes Date Status Influenza CVX: 141 09/28/2012 Pneumovax Unknown 09/28/2012 Influenza (Adult) CVX: 141 09/02/2010 Results No Results data Procedures Procedure Codes Date THER/PROPH/DIAG INJ SC/IM CPT-4: 42213 07/10/2019 METHYLPREDNISOLONE INJECTION CPT-4: J2930 07/10/2019 URINALYSIS NONAUTO W/O SCOPE CPT-4: 26209 09/06/2018 URINE CULTURE/ COLONY COUNT CPT-4: 86318 09/06/2018 DRAIN/INJECT JOINT/BURSA CPT-4: 86446 04/29/2017 TRIAMCINOLONE ACET INJ NOS CPT-4: J3301 04/29/2017 DEXAMETHASONE SODIUM PHOS CPT-4: J1100 04/29/2017 INFLUENZA ASSAY W/OPTIC CPT-4: 03999 12/01/2016 RESPIRATORY CULTURE & STAIN CPT-4: 75663 07/09/2016 TB INTRADERMAL TEST CPT-4: 04673 04/21/2016 DRAIN/INJECT JOINT/BURSA CPT-4: 84171 11/07/2013 METHYLPREDNISOLONE 40 MG INJ CPT-4: J1030 11/07/2013 TRIAMCINOLONE ACET INJ NOS CPT-4: J3301 11/07/2013 DRAIN/INJECT JOINT/BURSA CPT-4: 52100 08/08/2013 METHYLPREDNISOLONE 40 MG INJ CPT-4: J1030 08/08/2013 TRIAMCINOLONE ACET INJ NOS CPT-4: J3301 08/08/2013 FLU VACCINE 3 YRS & > IM UP 64 CPT-4: 51460 2 PNEUMOCOCCAL VACC 23 ADITYA IM CPT-4: 73166 09/28/2012 IMMUNIZATION ADMIN CPT-4: 48996 09/28/2012 IMMUNIZATION ADMIN EACH ADD CPT-4: 59623 09/28/2012 FLU VACCINE 3 YRS & > IM UP 64 CPT-4: 70675 0 IMMUNIZATION ADMIN CPT-4: 22769 09/02/2010 METHYLPREDNISOLONE INJECTION CPT-4: J2930 05/07/2010 THER/PROPH/DIAG INJ SC/IM CPT-4: 63846 05/07/2010 Vital Signs Date Vital 11/29/2019 Blood [...] 1: 122/78 Code: 8480-6 BMI: 29.5 Code: 57236-3 Heart Rate 1: 76 bpm Height: 5'4" Respiratory Rate: 20 bpm SpO2: 96% Tempera ture: 37.0 (C) / 98.6 (F) Weight: 172 lbs 01/25/2019 Blood Pressure 1: 132/80 Code: 8480-6 BMI: 29.7 Code: 56182-6 Heart Rate 1: 84 bpm Height: 5'4" Respiratory Rate: 22 bpm SpO2: 98% Tempera ture: 36.9 (C) / 98.4 (F) Weight: 173 lbs 01/03/2019 Blood Pressure 1: 116/70 Code: 8480-6 BMI: 29.5 Code: 91745-3 Heart Rate 1: 92 bpm Height: 5'4" Respiratory Rate: 24 bpm SpO2: 98% Tempera ture: 37.2 (C) / 98.9 (F) Weight: 172 lbs 11/21/2018 Blood Pressure 1: 146/82 Code: 8480-6 BMI: 28.2 Code: 37458-9 Heart Rate 1: 88 bpm Height: 5'4" Respiratory Rate: 22 bpm SpO2: 97% Tempera ture: 36.9 (C) / 98.4 (F) Weight: 164 lbs 10/27/2018 Blood Pressure 1: 122/70 Code: 8480-6 BMI: 27.6 Code: 56287-1 Heart Rate 1: 88 bpm Height: 5'4" Respiratory Rate: 20 bpm SpO2: 96% Tempera ture: 36.8 (C) / 98.3 (F) Weight: 161 lbs 10/18/2018 Blood Pressure 1: 126/70 Code: 8480-6 BMI: 28.3 Code: 54942-5 Heart Rate 1: 76 bpm Height: 5'4" Respiratory Rate: 20 bpm SpO2: 95% Tempera ture: 37.0 (C) / 98.6 (F) Weight: 165 lbs 09/27/2018 Blood Pressure 1: 124/78 Code: 8480-6 BMI: 27.1 Code: 87554-0 Heart Rate 1: 88 bpm Height: 5'4" Respiratory Rate: 20 bpm SpO2: 98% Tempera ture: 36.4 (C) / 97.6 (F) Weight: 158 lbs 09/14/2018 Blood Pressure 1: 140/72 Code: 8480-6 BMI: 26.1 Code: 87254-1 Heart Rate 1: 100 bpm Height: 5'4" Respiratory Rate: 20 bpm SpO2: 97% Tempera ture: 36.9 (C) / 98.4 (F) Weight: 152 lbs 09/06/2018 Blood Pressure 1: 156/82 Code: 8480-6 BMI: 26.3 Code: 27653-8 Heart Rate 1: 100 bpm Height: 5'4" Respiratory Rate: 28 bpm SpO2: 95% Tempera ture: 37.2 (C) / 98.9 (F) Weight: 153 lbs 08/16/2018 Blood Pressure 1: 130/78 Code: 8480-6 Heart Rate 1: 87 bpm Respiratory Rate: 24 bpm SpO2: 94% Temperature: 36.9 (C) / 98.4 (F) We ight: 147 lbs 8 oz 07/07/2018 Blood Pressure 1: 116/78 Code: 8480-6 BMI: 22.7 Code: 77292-2 Heart Rate 1: 88 bpm Height: 5'4" Respiratory Rate: 22 bpm SpO2: 98% Tempera ture: 36.5 (C) / 97.7 (F) Weight: 132 lbs 05/31/2018 Blood Pressure 1: 128/78 Code: 8480-6 BMI: 22.3 Code: 26598-4 Heart Rate 1: 92 bpm Height: 5'4" Respiratory Rate: 26 bpm SpO2: 94% Tempera ture: 36.7 (C) / 98.1 (F) Weight: 130 lbs 03/31/2018 Blood Pressure 1: 136/78 Code: 8480-6 BMI: 21.5 Code: 25568-2 Heart Rate 1: 76 bpm Height: 5'4" Respiratory Rate: 24 bpm SpO2: 95% Tempera ture: 36.8 (C) / 98.3 (F) Weight: 125 lbs 01/26/2018 Blood Pressure 1: 142/64 Code: 8480-6 BMI: 20.6 Code: 11341-0 Heart Rate 1: 90 bpm Height: 5'4" Respiratory Rate: 24 bpm SpO2: 92% Tempera ture: 36.3 (C) / 97.3 (F) Weight: 120 lbs 10/26/2017 Blood Pressure 1: 124/70 Code: 8480-6 BMI: 20.3 Code: 89064-2 Heart Rate 1: 76 bpm Height: 5'4" Respiratory Rate: 22 bpm SpO2: 94% Tempera ture: 36.7 (C) / 98.1 (F) Weight: 118 lbs 09/23/2017 Blood Pressure 1: 106/70 Code: 8480-6 BMI: 19.2 Code: 54388-4 Heart Rate 1: 76 bpm Height: 5'4" Respiratory Rate: 20 bpm SpO2: 94% Tempera ture: 36.8 (C) / 98.3 (F) Weight: 112 lbs 08/12/2017 Blood Pressure 1: 116/68 Code: 8480-6 BMI: 20.1 Code: 31435-2 Heart Rate 1: 80 bpm Height: 5'4" Respiratory Rate: 22 bpm SpO2: 95% Tempera ture: 36.8 (C) / 98.2 (F) Weight: 117 lbs 07/06/2017 Blood Pressure 1: 136/78 Code: 8480-6 BMI: 20.6 Code: 04990-6 Heart Rate 1: 76 bpm Height: 5'4" Respiratory Rate: 24 bpm SpO2: 96% Tempera ture: 36.8 (C) / 98.2 (F) Weight: 120 lbs 06/02/2017 Blood Pressure 1: 112/70 Code: 8480-6 Heart Rate 1: 92 bpm Height: 5'4" Respiratory Rate: 24 bpm SpO2: 95% Temperature: 37.0 (C) / 98.6 (F) Weight: 04/29/2017 Blood Pressure 1: 94/52 Code: 8480-6 BMI: 19.6 C ode: 79128-1 Heart Rate 1: 84 bpm Height: 5'4" [...] 92/58 Code: 8480-6 BMI: 19.2 C ode: 36834-3 Heart Rate 1: 84 bpm Height: 5'4" Respiratory Rate: 26 bpm SpO2: 95% Tempera ture: 36.7 (C) / 98.0 (F) Weight: 112 lbs 12/01/2016 Blood Pressure 1: 114/70 Code: 8480-6 BMI: 19.2 Code: 16322-8 Heart Rate 1: 96 bpm Height: 5'4" Respiratory Rate: 28 bpm SpO2: 93% Tempera ture: 38.3 (C) / 101.0 (F) Weight: 112 lbs 10/27/2016 Blood Pressure 1: 126/66 Code: 8480-6 BMI: 19.6 Code: 06674-9 Heart Rate 1: 92 bpm Height: 5'4" Respiratory Rate: 28 bpm SpO2: 90% Tempera ture: 36.8 (C) / 98.3 (F) Weight: 114 lbs 09/09/2016 Blood Pressure 1: 126/74 Code: 8480-6 Heart Rate 1: 104 bpm Height: 5'4" Respiratory Rate: 32 bpm SpO2: 88% Temperature: 37 .2 (C) / 99.0 (F) 08/26/2016 Blood Pressure 1: 134/82 Code: 8480-6 BMI: 22.0 Code: 44377-7 Heart Rate 1: 84 bpm Height: 5'4" Respiratory Rate: 24 bpm SpO2: 94% Tempera ture: 36.8 (C) / 98.3 (F) Weight: 128 lbs 05/21/2016 Blood Pressure 1: 142/80 Code: 8480-6 BMI: 21.6 Code: 98082-2 Heart Rate 1: 104 bpm Height: 5'4" Respiratory Rate: 22 bpm SpO2: 93% Tempera ture: 36.0 (C) / 96.8 (F) Weight: 126 lbs 03/25/2016 Blood Pressure 1: 126/62 Code: 8480-6 Heart Rate 1: 88 bpm Respiratory Rate: 20 bpm SpO2: 92% Temperature: 36.8 (C) / 98.3 (F) We ight: 130 lbs 01/23/2016 Blood Pressure 1: 146/82 Code: 8480-6 BMI: 24.1 Code: 92774-4 Heart Rate 1: 92 bpm Height: 5'3" Respiratory Rate: 22 bpm Temperature: 37 .1 (C) / 98.8 (F) Weight: 136 lbs 12/26/2015 Blood Pressure 1: 142/78 Code: 8480-6 BMI: 24.6 Code: 53697-1 Heart Rate 1: 78 bpm Height: 5'3" Respiratory Rate: 20 bpm Temperature: 36 .7 (C) / 98.1 (F) Weight: 139 lbs 12/03/2015 Blood Pressure 1: 126/60 Code: 8480-6 BMI: 24.6 Code: 06653-3 Heart Rate 1: 100 bpm Height: 5'3" Respiratory Rate: 28 bpm Temperature: 37 .6 (C) / 99.6 (F) Weight: 139 lbs 09/10/2015 Blood Pressure 1: 124/64 Code: 8480-6 BMI: 23.7 Code: 48427-8 Heart Rate 1: 88 bpm Height: 5'3" Respiratory Rate: 24 bpm SpO2: 95% Tempera ture: 36.4 (C) / 97.6 (F) Weight: 134 lbs 08/06/2015 Blood Pressure 1: 114/76 Code: 8480-6 BMI: 23.2 Code: 74380-3 Heart Rate 1: 88 bpm Height: 5'3" Respiratory Rate: 22 bpm Temperature: 36 .6 (C) / 97.9 (F) Weight: 131 lbs 07/18/2015 Blood Pressure 1: 144/78 Code: 8480-6 BMI: 23.7 Code: 06460-9 Heart Rate 1: 84 bpm Height: 5'3" Respiratory Rate: 20 bpm Temperature: 37 .2 (C) / 99.0 (F) Weight: 134 lbs 04/10/2015 Blood Pressure 1: 110/64 Code: 8480-6 Heart Rate 1: 80 bpm Height: Respiratory Rate: 20 bpm Temperature: 37.1 (C) / 98.8 (F) Weight: 03/05/2015 Blood Pressure 1: 136/80 Code: 8480-6 BMI: 23.9 Code: 17168-3 Heart Rate 1: 76 bpm Height: 5'3" Respiratory Rate: 24 bpm Temperature: 37 .0 (C) / 98.6 (F) Weight: 135 lbs 01/30/2015 Blood Pressure 1: 142/80 Code: 8480-6 BMI: 23.0 Code: 78703-6 Heart Rate 1: 96 bpm Height: 5'3" Respiratory Rate: 22 bpm Temperature: 36 .2 (C) / 97.2 (F) Weight: 130 lbs 01/02/2015 Blood Pressure 1: 124/70 Code: 8480-6 BMI: 23.4 Code: 42233-4 Heart Rate 1: 84 bpm Height: 5'3" Respiratory Rate: 24 bpm SpO2: 95% Tempera ture: 36.9 (C) / 98.5 (F) Weight: 132 lbs 10/03/2014 Blood Pressure 1: 106/68 Code: 8480-6 BMI: 22.5 Code: 44961-2 Heart Rate 1: 88 bpm Height: 5'3" Respiratory Rate: 24 bpm Temperature: 37 .0 (C) / 98.6 (F) Weight: 127 lbs 08/27/2014 Blood Pressure 1: 12468 Code: 8480-6 BMI: 21.1 Code: 97578-0 Heart Rate 1: 88 bpm Height: 5'3" Respiratory Rate: 28 bpm Temperature: 36 .9 (C) / 98.5 (F) Weight: 119 lbs 07/03/2014 Blood Pressure 1: 114/70 Code: 8480-6 Heart Rate 1: 84 bpm Respiratory Rate: 28 bpm Temperature: 36.8 (C) / 98.3 (F) Weight: 121 lbs 04/11/2014 Blood Pressure 1: 112 Code: 8480-6 Heart Rate 1: 92 bpm Respiratory Rate: 20 bpm Temperature: 36.7 (C) / 98.0 (F) Weight: 124 lbs 03/07/2014 Blood Pressure 1: 102/ Code: 8480-6 Heart Rate 1: 84 bpm [...] 1: 120/70 Code: 8480-6 BMI: 19.2 Code: 56380-6 Heart Rate 1: 70 bpm Height: 5'4" Respiratory Rate: 20 bpm Temperature: 36 .9 (C) / 98.4 (F) Weight: 112 lbs 06/28/2013 Blood Pressure 1: 102/68 Code: 8480-6 BMI: 19.6 Code: 95772-9 Heart Rate 1: 76 bpm Height: 5'4" Respiratory Rate: 20 bpm Temperature: 36 .8 (C) / 98.2 (F) Weight: 114 lbs 05/31/2013 Blood Pressure 1: 106/70 Code: 8480-6 BMI: 18.9 Code: 90322-8 Heart Rate 1: 100 bpm Height: 5'4" Respiratory Rate: 20 bpm Temperature: 36 .4 (C) / 97.6 (F) Weight: 110 lbs 05/03/2013 Blood Pressure 1: 126/70 Code: 8480-6 BMI: 19.1 Code: 05394-1 Heart Rate 1: 88 bpm Height: 5'4" Respiratory Rate: 20 bpm Temperature: 37 .1 (C) / 98.8 (F) Weight: 111 lbs 04/25/2013 Blood Pressure 1: 114/68 Code: 8480-6 BMI: 19.4 Code: 59587-4 Heart Rate 1: 92 bpm Height: 5'4" Respiratory Rate: 24 bpm SpO2: 96% Tempera ture: 37.7 (C) / 99.8 (F) Weight: 113 lbs 03/08/2013 Blood Pressure 1: 94/68 Code: 8480-6 BMI: 21.3 C ode: 86324-7 Heart Rate 1: 88 bpm Height: 5'4" Respiratory Rate: 24 bpm Temperature: 37 .0 (C) / 98.6 (F) Weight: 124 lbs 02/07/2013 Blood Pressure 1: 106/64 Code: 8480-6 BMI: 21.8 Code: 37906-9 Heart Rate 1: 84 bpm Height: 5'4" Respiratory Rate: 22 bpm Temperature: 36 .8 (C) / 98.2 (F) Weight: 127 lbs 01/10/2013 Blood Pressure 1: 122/68 Code: 8480-6 BMI: 21.6 Code: 88138-2 Heart Rate 1: 94 bpm Height: 5'4" SpO2: 94% Temperature: 36.7 (C) /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 Summary Completed 07/15/2011 Appointment: Vika Renteria WPtel: [address] [place] [address] FOLLOW UP 04/02/2011 Visit Plan: SVN with Albuterol 0.083% Q4 hrs and Q2hrs prn. Cont smoking Cessation 03/19/2011 Appointment: Vika Renteria WPtel: [address] [place] [address] ACUTE ILLNESS 03/19/2011 Patient Education: Patient Medication Summary Completed 03/19/2011 Visit Plan: Repeat Biaxin XL Cont curren t meds Repeat Chantix 01/28/2011 Appointment: Vika Renteria WPtel: [address] [place] [address] FOLLOW UP 01/28/2011 Patient Education: Patient Medication Summary Completed 01/28/2011 Patient Education: Chantix Unbranded Comp leted 01/28/2011 Appointment: Vika Renteriatel: [address] [place], [place] [phone] FOLLOW UP 01/14/2011 Visit Plan: Finish abx Diflucan for vagi nitis Premarin vaginal cream Smoking cessation 12/17/2010 Appointment: Vika Renteria WPtel: [address] [place], [place] [phone] [facility] Follow Up 12/17/2010 Patient Education: Patient Medication Summary Completed 12/17/2010 Appointment: Vika Renteriatel: [address] [place], [place] [phone] FOLLOW UP 11/06/2010 Visit Plan: Start PT Use SVNs every 4hrs Smoking Cessation Change MS Contin to 200mg q 12hrs 2010 Appointment: Vika Renteria WPtel: [address] [place], [place] [phone] FOLLOW UP 2010 Patient Education: Patient Medication Summary Completed 2010 Visit Plan: Prednisone taper for pain an d lungs 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 Increase fluoxetine to 60mg QD for acute stress reaction 10/02/2010 Appointment: Vika Renteriatel: [address] [place], [place] [phone] FOLLOW UP 10/02/2010 Patient Education: Patient Medication Summary Completed 10/02/2010 Visit Plan: Check CT Head, Cervical, Tho racic, and Lumbar Spine Cont current meds Bactrim for left toe 09/24/2010 Appointment: Vika Renteriatel: [address] [place], [place] [phone] CHECK UP 09/24/2010 Patient Education: Patient Medication Summary Completed 09/24/2010 Appointment: Vika Renteria WPtel: [address] [place], [place] [phone] [place] FOLLOW UP 09/02/2010 Patient Education: Patient Medication Summary Completed 09/02/2010 Visit Plan: Return for 2nd epidural Obse rve right leg lesion Cont Symbicort and Spiriva 07/14/2010 Appointment: Vika Renteria WPtel: [address] [place], [place] [phone] FOLLOW UP 07/14/2010 Patient Education: Patient Medication Summary Completed 07/14/2010 Appointment: Vika Renteria WPtel: [address] [place], [place] [phone] FOLLOW UP 05/27/2010 Appointment: Vika Renteria WPtel: [address] [place], [place] [phone] FOLLOW UP 05/14/2010 Visit Plan: SVN with Albuterol 0.083% Q4 hrs and Q2hrs prn. Restart Spiriva Smoking Cessation 05/07/2010 Appointment: Vika Renteria WPtel: [address] [place], [place] [id number] FOLLOW UP 05/07/2010 Patient Education: Patient Medication Summary Completed 05/07/2010 Appointment: Vika Renteria WPtel: [address] [place], [place] [phone] ACUTE ILLNESS 04/08/2010 Patient Education: Patient Medication Summary Completed 04/08/2010 Referral: Kyle Billings WPtel: [address] [address] [place] Referral Completed Referral: Jaylan Matute WPtel: [address] [place] [address] [address] [id number] [place] Referral Initiated Referral: Kyle Billings WPtel: [address] [address] [place] Referral Appointment Requested Instructions Comment . [...] prn breakthrough pain . Discussed that some [employer] produc ts are petroleum free If [...]
--- OUTSIDE RECORDS SUMMARY | 2020-04-24 22:15 | XMS REPORT | CCD ---
Author Author Yana Renteria D.O. Organization [facility] Address [address] [place] [address] Phone Care Team Providers Care Commanding Officer Garage Name Role Phone Vika Renteria D.O., PP Unavailable CCM Unavailable Summary Purpose Interface Exchange Insurance Providers Payer name Policy type / Coverage type Covered alliance party ID Effective Begin Date Effective End Date [employer] [facility] [place] Medicaid [id number] 2018 U nknown Family History Family History data not found Social History Social History Element Codes Description Effective Dates Marital status Unknown 06/28/[address]: [id number] Currently smokes tobacco 05/2013 Allergies, Adverse Reactions, [...] MS Contin 200 mg tablet,extended release RxNorm: 627636 1 Tablet(s) Oral two times a day 03/19/2020 04/17/2020 Active Relistor 150 mg tablet RxNorm: 2961853 TAKE THREE TABLETS BY BENOIT TH DAILY 03/13/2020 No Stop Date Active cyclobenzaprine 10 mg tablet RxNorm: 847801 TAKE ONE TA BLET BY MOUTH THREE TIMES A DAY NEEDED 03/13/2020 No Stop Date Active furosemide 40 mg tablet RxNorm: 677851 TAKE ONE TABLET BY MOUTH EVERY MORNING 03/13/2020 No Stop Date Active hydroxyzine HCl 50 mg tablet RxNorm: 519223 1 Tablet(s) Oral two times a day to take with morphine--replaces benadryl 03/12/2020 04/11/2020 Active prednisone 1 mg tablet RxNorm: 339177 1 Tablet(s) Oral two times a day to take with hydroxyzine 03/12/2020 No Stop Date Active prednisolone 5 mg tablet RxNorm: 662078 1 Tablet(s) Oral two ti mes a day 02/22/2020 03/23/2020 Active prednisolone 5 mg tablet RxNorm: 849540 1 Tablet(s) Oral two ti mes a day 02/22/2020 02/21/2020 Inactive Symbicort 160 mcg-4.5 mcg/actuation HFA aerosol inhaler RxNo rm: 8172444 INHALE TWO PUFFS BY MOUTH TWICE A DAY 02/19/2020 No Stop Date Active Daliresp 500 mcg tablet RxNorm: 2234572 TAKE ONE TABLET BY MOUTH DAILY 02/19/2020 No Stop Date Active prednisone 20 mg tablet RxNorm: 479213 1 Tablet(s) Oral two yumi es a day 02/13/2020 02/20/2020 Inactive oxycodone 30 mg tablet RxNorm: 1438070 1 Tablet(s) Oral four times a day replaces MS Contin 02/13/2020 02/22/2020 Inactive levothyroxine 25 mcg tablet RxNorm: 055630 TAKE ONE TAB LET BY MOUTH EVERY MORNING 02/09/2020 No Stop Date Active MS Contin 200 mg tablet,extended release RxNorm: 792734 1 Tablet(s) Oral two times a day 02/01/2020 03/01/2020 Inactive Premarin 0.45 mg tablet RxNorm: 954768 TAKE ONE TABLET BY MOUTH DAILY 01/31/2020 No Stop Date Active metformin 500 mg tablet RxNorm: 213008 1 Tablet(s) Oral QD 01/31/20 20 04/29/2020 Active cyclobenzaprine 10 mg tablet RxNorm: 505749 TAKE ONE TA BLET BY MOUTH THREE TIMES A DAY NEEDED 01/31/2020 03/12/2020 Inactive gabapentin 300 mg capsule RxNorm: 678581 TAKE ONE CAPSULE BY [facility] TWICE A DAY 01/16/2020 No Stop Date Active potassium chloride ER 20 mEq tablet,extended release RxNorm: 826501 TAKE ONE TABLET BY MOUTH DAILY 01/08/2020 07/05/2020 Active ProAir HFA 90 mcg/actuation aerosol inhaler RxNorm: 680313 INHALE ONE PUFF BY MOUTH EVERY 4 HOURS FOR WHEEZING OR FOR SHORTNESS OF BREATH 01/04/2020 No Stop Date Active metformin 500 mg tablet RxNorm: 757458 1 Tablet(s) Oral QD 01/04/20 20 01/30/2020 Inactive MS Contin 200 mg tablet,extended release RxNorm: 045619 1 Tablet(s) Oral two times a day 01/02/2020 01/31/2020 Inactive Pulmicort 1 mg/2 mL suspension for nebulization RxNorm: 6168 19 USE ONE VIAL VIA NEBULIZER BY MOUTH TWICE A DAY 12/21/2019 No Stop Date Active furosemide 40 mg tablet RxNorm: 870279 TAKE ONE TABLET BY MOUTH EVERY MORNING NEEDED 12/20/2019 03/12/2020 Inactive levothyroxine 25 mcg tablet RxNorm: 930165 TAKE ONE TAB LET BY MOUTH EVERY MORNING 12/20/2019 02/08/2020 Inactive MS Contin 200 mg tablet,extended release RxNorm: 144068 1 Tablet(s) Oral two times a day 12/05/2019 01/01/2020 Inactive Medrol (Aníbal) 4 mg tablets in a dose pack RxNorm: 494724 6 Tablet(s) Oral QD --then as directed 11/30/2019 12/05/2019 Inactive MS Contin 200 mg tablet,extended release RxNorm: 693098 1 Tablet(s) Oral two times a day 11/29/2019 12/04/2019 Inactive cyclobenzaprine 10 mg tablet RxNorm: 552485 TAKE ONE TA BLET BY MOUTH THREE TIMES A DAY NEEDED 11/21/2019 01/30/2020 Inactive MS Contin 200 mg tablet,extended release RxNorm: 549190 1 Tablet(s) Oral two times a day replaces 100mg dose 11/03/2019 11/02/2019 Inactive MS Contin 200 mg tablet,extended release RxNorm: 291449 1 Tablet(s) Oral two times a day replaces 100mg dose 11/03/2019 11/29/2019 Inactive ferrous sulfate 325 mg (65 mg iron) tablet RxNorm: 316909 1 Tab let(s) Oral QD 10/30/2019 No Stop Date Active MS Contin 100 mg tablet,extended release RxNorm: 650779 1 Table t(s) Oral QD 10/30/2019 10/29/2019 Inactive MS Contin 100 mg tablet,extended release RxNorm: 823280 1 Table t(s) Oral QD 10/30/2019 11/02/2019 Inactive pantoprazole 40 mg tablet,delayed release RxNorm: 040418 1 Tabl et(s) Oral QD 10/25/2019 No Stop Date Active Minipress 2 mg capsule RxNorm: 470864 1 Capsule(s) Oral QAM and 3 at bedtime 10/25/2019 No Stop Date Active Lancets, Super Thin RxNorm: 1 Unit Dose Miscellaneous QD 9 11/27/2020 Active Cymbalta 60 mg capsule,delayed release RxNorm: 491596 1 Capsule (s) Oral QAM 10/25/2019 No Stop Date Active Cymbalta 30 mg capsule,delayed release RxNorm: 610829 1 Capsule (s) Oral QAM 10/25/2019 No Stop Date Active Relistor 150 mg tablet RxNorm: 5691472 TAKE THREE TABLETS BY BENOIT TH DAILY 10/25/2019 03/12/2020 Inactive oxycodone 15 mg tablet RxNorm: 2776614 1 Tablet(s) Oral four times a day as needed for pain 10/25/2019 11/28/2019 Inactive metformin 500 mg tablet RxNorm: 511024 1 Tablet(s) Oral QD 10/25/20 19 01/03/2020 Inactive levothyroxine 25 mcg tablet RxNorm: 018057 1 Tablet(s) Oral QAM 02/201912/19/2019 Inactive levothyroxine 25 mcg tablet RxNorm: 407024 1 Tablet(s) Oral QAM 02/201910/24/2019 Inactive MS Contin 100 mg tablet,extended release RxNorm: 851913 1 Tablet(s) Oral two times a day replaces fentanyl 10/25/2019 10/25/2019 Inactive Premarin 0.45 mg tablet RxNorm: 876131 TAKE ONE TABLET BY MOUTH DAILY 10/24/2019 01/30/2020 Inactive Duragesic 100 mcg/hr transdermal patch RxNorm: 896399 2 Application TD Q48H for pain 10/18/2019 10/24/2019 Inactive gabapentin 300 mg capsule RxNorm: 423766 TAKE ONE CAPSULE BY [facility] TWICE A DAY 10/16/2019 01/15/2020 Inactive cyclobenzaprine 10 mg tablet RxNorm: 351759 TAKE ONE TA BLET BY MOUTH THREE TIMES A DAY NEEDED 09/27/2019 11/20/2019 Inactive Relistor 150 mg tablet RxNorm: 0817014 TAKE THREE TABLETS BY BENO[facility] TH DAILY 09/25/2019 10/24/2019 Inactive ProAir HFA 90 mcg/actuation aerosol inhaler RxNorm: 302653 INHALE ONE PUFF BY MOUTH EVERY 4 HOURS FOR WHEEZING OR FOR SHORTNESS OF BREATH 09/25/2019 01/03/2020 Inactive furosemide 40 mg tablet RxNorm: 932665 1 Tablet(s) Oral QAM as needed 09/25/2019 09/25/2019 Inactive oxycodone 15 mg tablet RxNorm: 7452103 1 Tablet(s) PO QID as nee ded for pain 09/21/2019 10/24/2019 Inactive Duragesic 100 mcg/hr transdermal patch RxNorm: 719372 2 Application TD Q48H for pain 09/19/2019 10/17/2019 Inactive Daliresp 500 mcg tablet RxNorm: 7158802 1 Tablet(s) Oral QD 019 02/18/2020 Inactive Relistor 150 mg tablet RxNorm: 5655762 TAKE THREE TABLETS BY BENO[facility] TH DAILY 07/25/2019 07/30/2019 Inactive cyclobenzaprine 10 mg tablet RxNorm: 279219 TAKE ONE TA BLET BY MOUTH THREE TIMES A DAY NEEDED 07/25/2019 09/22/2019 Inactive potassium chloride ER 20 mEq tablet,extended release RxNorm: 907846 TAKE ONE TABLET BY MOUTH DAILY 07/25/2019 01/07/2020 Inactive fluoxetine 40 mg capsule RxNorm: 154386 TAKE ONE CAPSULE BY [facility]ENO[facility] TH EVERY MORNING 07/11/2019 10/24/2019 Inactive Medrol (Aníbal) 4 mg tablets in a dose pack RxNorm: 246633 6 Tablet(s) PO QD --then as directed 07/10/2019 07/15/2019 Inactive omeprazole 40 mg capsule,delayed release RxNorm: 279260 1 Capsule(s) PO QD for stomach TAKE ONE CAPSULE BY MOUTH DAILY 07/10/2019 10/24/2019 Inactive Augmentin 875 mg-125 mg tablet RxNorm: 832479 1 Tablet(s) PO BID 07/16/2019 Inactive Trulicity 0.75 mg/0.5 mL subcutaneous pen injector RxNorm: 1 899498 0.75 Milliliter(s) SQ weekly 07/05/2019 10/24/2019 Inactive Compazine 10 mg tablet RxNorm: 278896 TAKE ONE TABLET B Y MOUTH FOUR TIMES A DAY NEEDED FOR NAUSEA 06/20/2019 07/19/2019 Inactive ProAir HFA 90 mcg/actuation aerosol inhaler RxNorm: 093223 INHALE ONE PUFF BY MOUTH EVERY 4 HOURS FOR WHEEZING OR FOR SHORTNESS OF BREATH 06/20/2019 06/23/2019 Inactive Daliresp 500 mcg tablet RxNorm: 1511185 TAKE ONE TABLET BY MOUTH DAILY 06/12/2019 09/10/2019 Inactive loqpeycb-vgeyyjtxl-kthxmbsol 3.5 mg/mL-10,000 unit/mL- 1 % ear solution RxNorm: 731752 4 Drop(s) otic (ear) TID to left ear 06/05/2019 10/24/2019 Inac tive furosemide 40 mg tablet RxNorm: 089210 TAKE ONE TABLET BY MOUTH EVERY MORNING 05/26/2019 07/09/2019 Inactive Duragesic 100 mcg/hr transdermal patch RxNorm: 750479 2 Application TD Q48H for pain 05/16/2019 06/14/2019 Inactive oxycodone 15 mg tablet RxNorm: 1440846 1 Tablet(s) PO QID as nee ded for pain 05/10/2019 09/20/2019 Inactive doxycycline hyclate 100 mg capsule RxNorm: 2033330 1 Capsule(s) PO BID 05/03/2019 05/12/2019 Inactive prednisone 20 mg tablet RxNorm: 209773 1 Tablet(s) PO T ID for 3 days then 1 po BID for 3 days then one daily for 3 days 05/03/2019 07/11/2019 Inactiv e Ozempic 0.25 mg or 0.5 mg (2 mg/1.5 mL) subcutaneous p en injector RxNorm: 2019325 0.5 Milligram(s) SQ QW 05/03/2019 07/09/2019 Inactive fluconazole 100 mg tablet RxNorm: 224166 1 Tablet(s) PO QD 05/03/2005/07/2019 Inactive Premarin 0.45 mg tablet RxNorm: 532678 TAKE ONE TABLET BY MOUTH DAILY 05/03/2019 10/23/2019 Inactive potassium chloride ER 20 mEq tablet,extended release RxNorm: 316698 1 Tablet(s) PO QD 04/27/2019 07/25/2019 Inactive potassium chloride ER 20 mEq tablet,extended release RxNorm: 466983 1 Tablet(s) PO QD 04/25/2019 04/26/2019 Inactive Compazine 10 mg tablet RxNorm: 041827 1 Tablet(s) PO QID as nee ded for nausea 04/25/2019 05/04/2019 Inactive ProAir HFA 90 mcg/actuation aerosol inhaler RxNorm: 778447 INHALE ONE PUFF BY MOUTH EVERY 4 HOURS FOR WHEEZING OR FOR SHORTNESS OF BREATH 04/12/2019 06/10/2019 Inactive Medrol (Aníbal) 4 mg tablets in a dose pack RxNorm: 466934 6 Tablet(s) PO QD --then as directed 04/11/2019 04/16/2019 Inactive Symbicort 160 mcg-4.5 mcg/actuation HFA aerosol inhaler RxNo rm: 7088520 2 Puff(s) INH BID 04/10/2019 10/06/2019 Inactive levothyroxine 50 mcg tablet RxNorm: 687874 1 Tablet(s) PO QD 201810/24/2019 Inactive gabapentin 300 mg capsule RxNorm: 018749 1 Capsule(s) PO BID 201810/02/2019 Inactive Symbicort 160 mcg-4.5 mcg/actuation HFA aerosol inhaler RxNo rm: 4372085 2 Puff(s) INH BID 04/06/2019 04/09/2019 Inactive oxycodone 15 mg tablet RxNorm: 4106573 1 Tablet(s) PO QID as nee ded for pain 04/05/2019 05/09/2019 Inactive levothyroxine 50 mcg tablet RxNorm: 276311 1 Tablet(s) PO QD 201804/09/2019 Inactive furosemide 40 mg tablet RxNorm: 837929 TAKE ONE TABLET BY MOUTH EVERY MORNING 03/21/2019 04/19/2019 Inactive levothyroxine 50 mcg tablet RxNorm: 934987 TAKE ONE TABLET BY M OUTH DAILY 03/21/2019 03/27/2019 Inactive Duragesic 100 mcg/hr transdermal patch RxNorm: 790234 2 Application TD Q48H for pain 03/13/2019 04/11/2019 Inactive oxycodone 15 mg tablet RxNorm: 7656052 1 Tablet(s) PO QID as nee ded for pain 03/06/2019 04/04/2019 Inactive Relistor 150 mg tablet RxNorm: 6397363 3 Tablet(s) PO QD 02/28/2019 0 05/28/2019 Inactive cyclobenzaprine 10 mg tablet RxNorm: 507544 1 Tablet(s) PO TID as needed 02/28/2019 05/28/2019 Inactive phentermine 37.5 mg tablet RxNorm: 145066 1 Tablet(s) PO QAM 201803/15/2019 Inactive Duragesic 100 mcg/hr transdermal patch RxNorm: 126424 2 Application TD Q48H for pain 02/09/2019 03/10/2019 Inactive Daliresp 500 mcg tablet RxNorm: 3607144 TAKE ONE TABLET BY MOUTH DAILY 01/31/2019 05/30/2019 Inactive Premarin 0.45 mg tablet RxNorm: 878541 1 Tablet(s) PO QD 01/31/2019 0 04/30/2019 Inactive fluoxetine 40 mg capsule RxNorm: 993696 Capsule(s) TAKE ONE CAPSULE BY MOUTH EVERY MORNING 01/31/2019 04/30/2019 Inactive levothyroxine 50 mcg tablet RxNorm: 703083 1 Tablet(s) PO QD 201804/10/2019 Inactive follow up in 3 weeks levothyroxine 50 mcg tablet RxNorm: 473481 1 Tablet(s) PO QD 201801/25/2019 Inactive follow up in 3 weeks potassium chloride ER 20 mEq tablet,extended release RxNorm: 380321 2 Tablet(s) PO BID 01/23/2019 01/08/2020 Inactive Synthroid 50 mcg tablet RxNorm: 253853 TAKE ONE TABLET BY MOUTH DAILY 01/16/2019 10/24/2019 Inactive potassium chloride ER 20 mEq tablet,extended release RxNorm: 654156 2 Tablet(s) PO BID 01/04/2019 01/22/2019 Inactive ProAir HFA 90 mcg/actuation aerosol inhaler RxNorm: 699740 INHALE ONE PUFF BY MOUTH EVERY 4 HOURS FOR WHEEZING OR SHORTNESS OF BREATH 01/04/201902/20 Inactive Request already responded to by other me ans (e.g. phone or fax) ProAir HFA 90 mcg/actuation aerosol inhaler RxNorm: 1460247 INHALE ONE PUFF BY MOUTH EVERY 4 HOURS FOR WHEEZING OR SHORTNESS OF BREATH 01/02/201912/23 Inactive gabapentin 300 mg capsule RxNorm: 092407 TAKE ONE CAPSULE BY [facility] TWICE A DAY 12/30/2018 04/06/2019 Inactive furosemide 40 mg tablet RxNorm: 060302 1 Tablet(s) PO QAM 12/26/2018 02/23/2019 Inactive Compazine 10 mg tablet RxNorm: 920997 1 Tablet(s) PO QID as nee ded for nausea 12/07/2018 12/16/2018 Inactive metolazone 2.5 mg tablet RxNorm: 731152 TAKE ONE TABLET BY MOUT H EVERY MORNING 12/05/2018 01/03/2019 Inactive metformin ER 500 mg tablet,extended release 24 hr RxNorm: 86 0975 TAKE ONE TABLET BY MOUTH DAILY 12/05/2018 01/31/2020 Inactive Synthroid 50 mcg tablet RxNorm: 455057 1 Tablet(s) PO QD 11/25/2018 0 01/03/2019 Inactive DC any other synthroid strengths. Should be 50mcg only cyclobenzaprine 10 mg tablet RxNorm: 589810 TAKE ONE TA BLET BY MOUTH THREE TIMES A DAY NEEDED 11/09/2018 02/06/2019 Inactive metolazone 2.5 mg tablet RxNorm: 940403 1 Tablet(s) PO QAM repl aces 5mg dose 11/02/2018 12/01/2018 Inactive potassium chloride ER 20 mEq tablet,extended release RxNorm: 710007 2 Tablet(s) PO QD 2018 01/02/2019 Inactive Compazine 10 mg tablet RxNorm: 936249 1 Tablet(s) PO QID as nee ded for nausea 10/18/2018 12/07/2018 Inactive furosemide 40 mg tablet RxNorm: 125804 1 Tablet(s) PO QAM 10/12/2018 12/10/2018 Inactive ondansetron 8 mg disintegrating tablet RxNorm: 469213 1 Tablet(s) PO Q6H as needed 10/11/2018 10/17/2018 Inactive scopolamine 1 mg over 3 days transdermal patch RxNorm: 28869 2 1 Application TD behind ear. Take off after three days 10/11/2018 01/02/2019 Inactive furosemide 40 mg tablet RxNorm: 545889 1 Tablet(s) PO QAM 10/10/2018 12/26/2018 Inactive metolazone 5 mg tablet RxNorm: 421647 1 Tablet(s) PO QAM 10/06/2018 1 01/03/2018 Inactive metolazone 5 mg tablet RxNorm: 160825 1 Tablet(s) PO QAM 10/06/2018 1 12/05/2017 Inactive Xtampza ER 36 mg capsule sprinkle RxNorm: 1423029 1 Capsule(s) P O BID 10/05/2018 01/02/2019 Inactive Xtampza ER 36 mg capsule sprinkle RxNorm: 1043112 1 Capsule(s) P O BID 10/05/2018 02/12/2019 Inactive omeprazole 40 mg capsule,delayed release RxNorm: 867842 TAKE ONE CAPSULE BY MOUTH DAILY 10/03/2018 12/31/2018 Inactive Duragesic 100 mcg/hr transdermal patch RxNorm: 904368 2 Application TD Q48H for pain 09/30/2018 10/29/2018 Inactive Synthroid 50 mcg tablet RxNorm: 217187 1 Tablet(s) PO QD 09/29/2018 0 11/25/2018 Inactive DC any other synthroid strengths. Should be 50mcg only Synthroid 50 mcg tablet RxNorm: 759654 1 Tablet(s) PO QD 09/29/2018 1 11/28/2017 Inactive furosemide 40 mg tablet RxNorm: 487222 2 Tablet(s) PO Q AM for 1 week then every other day for 2 weeks 09/27/2018 10/12/2018 Inactive fluoxetine 40 mg capsule RxNorm: 397268 2 Capsule(s) PO QD 09/27/20 18 10/17/2018 Inactive potassium chloride ER 20 mEq tablet,extended release RxNorm: 941590 2 Tablet(s) PO QD for 1 week then every other day for 2 weeks 09/27/2018 2018 Inactive ProAir HFA 90 mcg/actuation aerosol inhaler RxNorm: 5197171 INHALE ONE PUFF BY MOUTH EVERY 4 HOURS FOR WHEEZING OR SHORTNESS OF BREATH 09/26/201811/23 Inactive Synthroid 75 mcg tablet RxNorm: 094631 1 Tablet(s) PO QD 09/09/2018 1 Inactive Synthroid 75 mcg tablet RxNorm: 116147 1 Tablet(s) PO QD 09/09/2018 1 11/28/2017 Inactive furosemide 40 mg tablet RxNorm: 656763 1 Tablet(s) PO QD 09/06/2018 1 Inactive potassium chloride ER 20 mEq tablet,extended release RxNorm: 201978 1 Tablet(s) PO QD 09/06/2018 09/19/2018 Inactive Duragesic 100 mcg/hr transdermal patch RxNorm: 874136 2 Application TD Q48H for pain 08/30/2018 09/28/2018 Inactive gabapentin 300 mg capsule RxNorm: 599461 TAKE ONE CAPSULE BY [facility] TWICE A DAY 08/23/2018 12/20/2018 Inactive Daliresp 500 mcg tablet RxNorm: 7347337 TAKE ONE TABLET BY MOUTH DAILY 08/23/2018 01/19/2019 Inactive Pulmicort 1 mg/2 mL suspension for nebulization RxNorm: 6168 19 USE ONE VIAL VIA NEBULIZER BY MOUTH TWICE A DAY 08/23/2018 07/11/2019 Inactive Synthroid 88 mcg tablet RxNorm: 119451 1 Tablet(s) PO QD 08/19/2018 1 Inactive Medrol (Aníbal) 4 mg tablets in a dose pack RxNorm: 682576 Tablet(s) PO take as directed 08/16/2018 09/05/2018 Inactive Relistor 150 mg tablet RxNorm: 6068495 3 Tablet(s) PO QD 08/16/2018 1 Inactive Zithromax Z-Aníbal 250 mg tablet RxNorm: 295438 Tablet(s) PO take as directed 08/16/2018 09/05/2018 Inactive cyclobenzaprine 10 mg tablet RxNorm: 882030 1 Tablet(s) PO TID as needed 08/16/2018 11/08/2018 Inactive Synthroid 88 mcg tablet RxNorm: 918765 1 Tablet(s) PO Q D NEEDS UPDATED LABS BEFORE FURTHER REFILLS 08/08/2018 08/19/2018 Inactive Premarin 0.45 mg tablet RxNorm: 967000 1 Tablet(s) PO QD 08/03/2018 0 01/31/2019 Inactive fluoxetine 20 mg capsule RxNorm: 897313 TAKE ONE CAPSULE BY [facility] DAILY 08/03/2018 09/26/2018 Inactive Xtampza ER 36 mg capsule sprinkle RxNorm: 8217081 1 Capsule(s) P O BID 08/03/2018 09/01/2018 Inactive metformin ER 500 mg tablet,extended release 24 hr RxNorm: 86 0975 1 Tablet(s) PO QD 08/03/2018 10/31/2018 Inactive Symbicort 160 mcg-4.5 mcg/actuation HFA aerosol inhaler RxNo rm: 2086784 2 Puff(s) INH BID 08/03/2018 01/29/2019 Inactive Duragesic 100 mcg/hr transdermal patch RxNorm: 527685 2 Application TD Q48H for pain 07/29/2018 08/27/2018 Inactive ProAir HFA 90 mcg/actuation aerosol inhaler RxNorm: 671756 INHALE TWO PUFFS BY MOUTH EVERY 4 HOURS FOR WHEEZING OR SHORTNESS OF BREATH 07/27/201802/2018 Inactive Relistor 150 mg tablet RxNorm: 2619014 3 Tablet(s) PO QD 07/20/2018 0 08/15/2018 Inactive metformin ER 500 mg tablet,extended release 24 hr RxNorm: 86 0975 TAKE ONE TABLET BY MOUTH DAILY 07/08/2018 08/02/2018 Inactive fluoxetine 40 mg capsule RxNorm: 407468 TAKE ONE CAPSULE BY BENOIT TH EVERY MORNING 07/08/2018 10/05/2018 Inactive Xtampza ER 18 mg capsule sprinkle RxNorm: 0361956 1 Capsule(s) P O BID 07/08/2018 08/02/2018 Inactive Relistor 150 mg tablet RxNorm: 7905562 3 Tablet(s) PO QD 07/08/2018 0 07/12/2018 Inactive Synthroid 88 mcg tablet RxNorm: 575650 1 Tablet(s) PO Q D NEEDS UPDATED LABS BEFORE FURTHER REFILLS 06/23/2018 07/07/2018 Inactive fluoxetine 40 mg capsule RxNorm: 989208 TAKE ONE CAPSULE BY BENOIT TH EVERY MORNING 06/15/2018 09/26/2018 Inactive orphenadrine citrate ER 100 mg tablet,extended release RxNor m: 222591 TAKE ONE TABLET BY MOUTH TWICE A DAY FOR MUSCLE SPASM 06/15/2018 08/15/2018 Renu ctive Duragesic 100 mcg/hr transdermal patch RxNorm: 175250 2 Application TD Q48H for pain 05/30/2018 06/28/2018 Inactive ProAir HFA 90 mcg/actuation aerosol inhaler RxNorm: 374833 INHALE TWO PUFFS BY MOUTH EVERY 4 HOURS FOR WHEEZING OR SHORTNESS OF BREATH 05/19/201803/2018 Inactive Chantix Continuing Month Box 1 mg tablet RxNorm: 310723 TAKE ONE TABLET BY MOUTH TWICE A DAY 05/19/2018 08/15/2018 Inactive oxycodone 10 mg tablet RxNorm: 3147224 1-2 Tablet(s) PO QID as n eeded for pain 05/19/2018 07/07/2018 Inactive gabapentin 300 mg capsule RxNorm: 634540 TAKE ONE CAPSULE BY [facility] TWICE A DAY 05/18/2018 07/16/2018 Inactive ProAir HFA 90 mcg/actuation aerosol inhaler RxNorm: 748870 INHALE TWO PUFFS BY MOUTH EVERY 4 HOURS FOR WHEEZING OR SHORTNESS OF BREATH 05/04/201804/23 Inactive Augmentin 500 mg-125 mg tablet RxNorm: 480198 1 Tablet(s) PO BID 05/03/2018 Inactive oxycodone 10 mg tablet RxNorm: 5851570 1-2 Tablet(s) PO QID as n eeded for pain 04/21/2018 05/18/2018 Inactive Synthroid 88 mcg tablet RxNorm: 954094 1 Tablet(s) PO QD 04/15/2018 0 08/08/2018 Inactive Symbicort 160 mcg-4.5 mcg/actuation HFA aerosol inhaler RxNo rm: 9449525 2 Puff(s) INH BID 04/15/2018 04/10/2019 Inactive Premarin 0.45 mg tablet RxNorm: 594070 1 Tablet(s) PO QD 04/15/2018 0 08/03/2018 Inactive ProAir HFA 90 mcg/actuation aerosol inhaler RxNorm: 869670 2 Puff(s) INH Q4H prn for wheezing or shortness of breath 04/15/2018 05/03/2018 Inactive metformin ER 500 mg tablet,extended release 24 hr RxNorm: 86 0975 1 Tablet(s) PO QD 04/11/2018 07/07/2018 Inactive omeprazole 40 mg capsule,delayed release RxNorm: 845499 TAKE ONE CAPSULE BY MOUTH DAILY 04/10/2018 06/08/2018 Inactive Synthroid 88 mcg tablet RxNorm: 233002 1 Tablet(s) PO QD 04/04/2018 0 04/14/2018 Inactive Synthroid 88 mcg tablet RxNorm: 865885 1 Tablet(s) PO QD 04/04/2018 0 04/03/2018 Inactive orphenadrine citrate ER 100 mg tablet,extended release RxNor m: 628505 1 Tablet(s) PO BID for muscle spasm 04/04/2018 05/03/2018 Inactive metformin ER 500 mg tablet,extended release 24 hr RxNorm: 86 0975 1 Tablet(s) PO QD NEEDS UPDATED LABS 03/31/2018 04/11/2018 Inactive doxycycline hyclate 100 mg capsule RxNorm: 8185461 1 Capsule(s) PO BID 03/31/2018 04/09/2018 Inactive prednisone 20 mg tablet RxNorm: 879185 3 Tablet(s) PO T ID for 3 days then 1 po BID for 3 days then one daily for 3 days 03/31/2018 07/06/2018 Inactiv e Chantix Continuing Month Box 1 mg tablet RxNorm: 949486 TAKE ONE TABLET BY MOUTH TWICE A DAY 03/25/2018 03/30/2018 Inactive oxycodone 10 mg tablet RxNorm: 4768653 1-2 Tablet(s) PO QID as n eeded for pain 03/21/2018 04/20/2018 Inactive Daliresp 500 mcg tablet RxNorm: 4452107 1 Tablet(s) PO QD 03/15/2018 08/22/2018 Inactive metformin ER 500 mg tablet,extended release 24 hr RxNorm: 86 0975 1 Tablet(s) PO QD NEEDS UPDATED LABS 03/14/2018 03/31/2018 Inactive nystatin 100,000 unit/mL oral suspension RxNorm: 988965 5 Chio liter(s) PO QID 03/02/2018 03/15/2018 Inactive nystatin 100,000 unit/mL oral suspension RxNorm: 288473 5 Chio liter(s) PO QID 03/02/2018 03/01/2018 Inactive oxycodone 10 mg tablet RxNorm: 8461848 1-2 Tablet(s) PO QID as n eeded for pain 02/16/2018 03/20/2018 Inactive fluoxetine 20 mg capsule RxNorm: 451509 1 Capsule(s) PO QD 02/15/20 18 08/02/2018 Inactive metformin ER 500 mg tablet,extended release 24 hr RxNorm: 86 0975 1 Tablet(s) PO QD Needs updated labs 02/14/2018 03/14/2018 Inactive cefdinir 300 mg capsule RxNorm: 067110 1 Capsule(s) PO BID 01/27/20 18 02/04/2018 Inactive orphenadrine citrate ER 100 mg tablet,extended release RxNor m: 962363 1 Tablet(s) PO BID for muscle spasm 01/26/2018 04/04/2018 Inactive gabapentin 300 mg capsule RxNorm: 109857 1 Capsule(s) PO BID 201704/17/2018 Inactive oxycodone 10 mg tablet RxNorm: 0257311 1-2 Tablet(s) PO QID as n eeded for pain 01/17/2018 02/15/2018 Inactive Duragesic 100 mcg/hr transdermal patch RxNorm: 791901 2 Application TD Q48H for pain 01/17/2018 02/15/2018 Inactive gabapentin 300 mg capsule RxNorm: 903007 TAKE ONE CAPSULE BY MO [facility] TWICE A DAY 12/20/2017 01/18/2018 Inactive fluoxetine 40 mg capsule RxNorm: 760289 TAKE ONE CAPSULE BY BENOIT TH EVERY MORNING 12/15/2017 03/14/2018 Inactive OneTouch Ultra Test strips RxNorm: TEST DAILY 11/04/2017 02/01/2018 Inactive gabapentin 300 mg capsule RxNorm: 225678 1 Capsule(s) P O TID replaces BID dosing 10/26/2017 02/22/2018 Inactive oxycodone 10 mg tablet RxNorm: 1727617 1-2 Tablet(s) PO QID as n eeded for pain 10/18/2017 01/16/2018 Inactive Duragesic 100 mcg/hr transdermal patch RxNorm: 754140 2 Application TD Q48H for pain 10/18/2017 11/16/2017 Inactive gabapentin 300 mg capsule RxNorm: 674188 1 Capsule(s) PO BID 201610/25/2017 Inactive Abilify 5 mg tablet RxNorm: 469778 1 Tablet(s) PO QAM 09/23/201702/2017 Inactive gabapentin 300 mg capsule RxNorm: 285323 1 Capsule(s) PO BID 201610/17/2017 Inactive oxycodone 10 mg tablet RxNorm: 0255588 1-2 Tablet(s) PO QID as n eeded for pain 09/15/2017 10/17/2017 Inactive Duragesic 100 mcg/hr transdermal patch RxNorm: 269070 2 Application TD Q48H for pain 09/15/2017 10/14/2017 Inactive Duragesic 100 mcg/hr transdermal patch RxNorm: 791378 2 Application TD Q48H for pain 09/15/2017 10/24/2019 Inactive oxycodone 10 mg tablet RxNorm: 0707674 1-2 Tablet(s) PO QID as n eeded for pain 09/15/2017 08/15/2018 Inactive Daliresp 500 mcg tablet RxNorm: 3673759 1 Tablet(s) PO QD 09/06/2017 03/15/2018 Inactive Ventolin HFA 90 mcg/actuation aerosol inhaler RxNorm: 124188 2 Puff(s) INH Q4H as needed 09/02/2017 05/19/2018 Inactive oxycodone 10 mg tablet RxNorm: 0235944 1-2 Tablet(s) PO QID as n eeded for pain 08/17/2017 09/14/2017 Inactive Duragesic 100 mcg/hr transdermal patch RxNorm: 350039 2 Application TD Q48H for pain 08/17/2017 09/14/2017 Inactive fluoxetine 40 mg capsule RxNorm: 122351 Capsule(s) TAKE ONE CAPSULE BY MOUTH EVERY MORNING 08/17/2017 12/14/2017 Inactive Pulmicort 1 mg/2 mL suspension for nebulization RxNorm: 6168 19 1 Unit Dose INH BID Dx: COPD (J44.9) 08/16/2017 08/22/2018 Inactive gabapentin 300 mg capsule RxNorm: 170185 1 Capsule(s) PO QHS 201610/18/2017 Inactive fluoxetine 20 mg capsule RxNorm: 996436 1 Capsule(s) PO QD 08/12/20 17 02/14/2018 Inactive Abilify 2 mg tablet RxNorm: 762339 1 Tablet(s) PO QD TA KE ONE TABLET BY MOUTH DAILY 08/12/2017 10/25/2017 Inactive metformin ER 500 mg tablet,extended release 24 hr RxNorm: 86 0975 1 Tablet(s) PO QD 08/10/2017 02/14/2018 Inactive Synthroid 112 mcg tablet RxNorm: 240211 1 Tablet(s) PO QD 08/10/2017 04/15/2018 Inactive oxycodone 10 mg tablet RxNorm: 6339993 1-2 Tablet(s) PO QID as n eeded for pain 07/19/2017 08/16/2017 Inactive Duragesic 100 mcg/hr transdermal patch RxNorm: 154280 2 Application TD Q48H for pain 07/19/2017 08/16/2017 Inactive Ventolin HFA 90 mcg/actuation aerosol inhaler RxNorm: 212320 2 Puff(s) INH Q4H as needed 07/12/2017 09/02/2017 Inactive Abilify 2 mg tablet RxNorm: 080241 1 Tablet(s) PO QD TA KE ONE TABLET BY MOUTH DAILY 07/06/2017 08/11/2017 Inactive gabapentin 800 mg tablet RxNorm: 186360 1 Tablet(s) PO TID 06/22/2007/05/2017 Inactive Chantix Starting Month Box 0.5 mg (11)-1 mg (42) table ts in dose pack RxNorm: 553196 TAKE BY MOUTH INSTRUCTED - PER PACKAGE INSTRUCTIONS 06/0707/04/2017 Inactive Ventolin HFA 90 mcg/actuation aerosol inhaler RxNorm: 319769 2 Puff(s) INH Q4H as needed 05/26/2017 07/12/2017 Inactive Duragesic 100 mcg/hr transdermal patch RxNorm: 977618 2 Application TD Q48H for pain 05/19/2017 06/17/2017 Inactive oxycodone 10 mg tablet RxNorm: 3180561 1-2 Tablet(s) PO QID as n eeded for pain 05/19/2017 07/18/2017 Inactive Abilify 2 mg tablet RxNorm: 284703 TAKE ONE TABLET BY MOUTH DAILY 0 05/10/2017 07/05/2017 Inactive Synthroid 112 mcg tablet RxNorm: 649870 1 Tablet(s) PO QD 05/06/2017 08/10/2017 Inactive metformin ER 500 mg tablet,extended release 24 hr RxNorm: 86 0975 1 Tablet(s) PO QD 05/06/2017 08/10/2017 Inactive Topamax 100 mg tablet RxNorm: 560717 1 Tablet(s) PO QHS 05/06/2017 Inactive Premarin 0.45 mg tablet RxNorm: 812104 1 Tablet(s) PO QD 05/06/2017 0 04/15/2018 Inactive orphenadrine citrate ER 100 mg tablet,extended release RxNor m: 321963 1 Tablet(s) PO TID for muscle spasm--replaces methocarbamol 04/29/2017 Inactive oxycodone 10 mg tablet RxNorm: 4398927 1-2 Tablet(s) PO QID as n eeded for pain 04/21/2017 05/18/2017 Inactive Duragesic 100 mcg/hr transdermal patch RxNorm: 360350 2 Application TD Q48H for pain 04/21/2017 05/18/2017 Inactive fluoxetine 40 mg capsule RxNorm: 132891 Capsule(s) TAKE ONE CAPSULE BY MOUTH EVERY MORNING 04/20/2017 08/17/2017 Inactive Ventolin HFA 90 mcg/actuation aerosol inhaler RxNorm: 011689 2 Puff(s) INH Q4H as needed 04/05/2017 05/26/2017 Inactive Symbicort 160 mcg-4.5 mcg/actuation HFA aerosol inhaler RxNo rm: 4325970 2 Puff(s) INH BID 03/30/2017 04/15/2018 Inactive Spiriva with HandiHaler 18 mcg and inhalation capsules RxNor m: 464986 1 Capsule(s) INH QD USING HANDIHALER 03/30/2017 02/12/2019 Inactive Duragesic 100 mcg/hr transdermal patch RxNorm: 678252 2 Application TD Q48H for pain 03/18/2017 04/16/2017 Inactive oxycodone 10 mg tablet RxNorm: 5545973 1-2 Tablet(s) PO QID as n eeded for pain 03/18/2017 04/20/2017 Inactive metformin ER 500 mg tablet,extended release 24 hr RxNorm: 86 0975 Tablet(s) TAKE ONE TABLET BY MOUTH DAILY 03/01/2017 05/06/2017 Inactive Premarin 0.45 mg tablet RxNorm: 130225 Tablet(s) TAKE ONE TABLE T BY MOUTH DAILY 03/01/2017 05/06/2017 Inactive Synthroid 112 mcg tablet RxNorm: 958945 Tablet(s) TAKE ONE TABLET BY MOUTH DAILY 03/01/2017 05/06/2017 Inactive Daliresp 500 mcg tablet RxNorm: 9417514 1 Tablet(s) PO QD 03/01/2017 09/06/2017 Inactive 16.2 mg-0.1037 mg-0.0194 mg tablet RxNorm: 3414457 Tablet(s) PO PRN for gas and cramping 02/23/2017 04/28/2017 Inactive TAKE TWO TABLET S BY MOUTH THREE TIMES A DAY NEEDED FOR GAS AND CRAMPING gabapentin 800 mg tablet RxNorm: 834477 1 Tablet(s) PO TID repl aces 600mg 02/23/2017 04/28/2017 Inactive Duragesic 100 mcg/hr transdermal patch RxNorm: 348370 2 Application TD Q48H for pain 02/17/2017 03/17/2017 Inactive fluoxetine 20 mg capsule RxNorm: 708155 1 Capsule(s) PO QD 02/18/20 17 08/12/2017 Inactive oxycodone 20 mg tablet RxNorm: 9052458 1 Tablet(s) PO QID as nee ded for pain 02/17/2017 03/17/2017 Inactive Ventolin HFA 90 mcg/actuation aerosol inhaler RxNorm: 170161 INHALE TWO PUFFS BY MOUTH EVERY 4 HOURS NEEDED 02/15/2017 04/05/2017 Inactive Silvadene 1 % topical cream RxNorm: 568730 1 Application TOP BI D to burn area 02/01/2017 09/22/2017 Inactive Topamax 100 mg tablet RxNorm: 221302 TAKE ONE TABLET BY MOUTH EVERY NIGHT AT BEDTIME 01/29/2017 05/06/2017 Inactive Chantix Starting Month Box 0.5 mg (11)-1 mg (42) table ts in dose pack RxNorm: 239554 Tablet(s) PO as directed 01/29/2017 06/01/2017 Inactive Abilify 2 mg tablet RxNorm: 846954 TAKE ONE TABLET BY MOUTH DAILY 0 01/26/2017 04/25/2017 Inactive Chantix Starting Month Box 0.5 mg (11)-1 mg (42) table ts in dose pack RxNorm: 847609 Tablet(s) PO as directed 01/20/2017 01/28/2017 Inactive gabapentin 600 mg tablet RxNorm: 231273 1 Tablet(s) PO TID 01/21/20 17 02/22/2017 Inactive Chantix Continuing Month Box 1 mg tablet RxNorm: 301154 1 Table t(s) PO BID 12/31/2016 06/01/2017 Inactive Spiriva with HandiHaler 18 mcg and inhalation capsules RxNor m: 904928 INHALE THE ENTIRE CONTENTS OF 1 CAPSULE ONCE A DAY USING HANDIHALER 12/31/201607/2017 Inactive Synthroid 112 mcg tablet RxNorm: 619904 TAKE ONE TABLET BY MOUT H DAILY 12/30/2016 03/01/2017 Inactive metformin ER 500 mg tablet,extended release 24 hr RxNorm: 86 0975 TAKE ONE TABLET BY MOUTH DAILY 12/30/2016 03/01/2017 Inactive Premarin 0.45 mg tablet RxNorm: 070074 TAKE ONE TABLET BY MOUTH DAILY 12/30/2016 03/01/2017 Inactive omeprazole 40 mg capsule,delayed release RxNorm: 925870 TAKE ONE CAPSULE BY MOUTH DAILY 12/30/2016 01/25/2018 Inactive Ventolin HFA 90 mcg/actuation aerosol inhaler RxNorm: 788771 INHALE TWO PUFFS BY MOUTH EVERY 4 HOURS NEEDED 12/28/2016 02/13/2017 Inactive fluoxetine 40 mg capsule RxNorm: 521147 TAKE ONE CAPSULE BY BENOIT TH EVERY MORNING 12/15/2016 04/20/2017 Inactive Chantix Continuing Month Box 1 mg tablet RxNorm: 472396 TAKE ONE TABLET BY MOUTH TWICE A DAY 12/04/2016 12/31/2016 Inactive doxycycline hyclate 100 mg capsule RxNorm: 4292338 1 Capsule(s) PO BID 12/01/2016 12/07/2016 Inactive Levaquin 750 mg tablet RxNorm: 076584 1 Tablet(s) PO QD 12/01/2016 Inactive Abilify 2 mg tablet RxNorm: 014069 TAKE ONE TABLET BY MOUTH DAILY 0 11/25/2016 11/30/2016 Inactive Ventolin HFA 90 mcg/actuation aerosol inhaler RxNorm: 851116 INHALE TWO PUFFS BY MOUTH EVERY 4 HOURS NEEDED 11/02/2016 12/19/2016 Inactive Chantix Continuing Month Box 1 mg tablet RxNorm: 126353 Tablet(s) PO as directed 10/30/2016 12/03/2016 Inactive Symbicort 160 mcg-4.5 mcg/actuation HFA aerosol inhaler RxNo rm: 4157300 INHALE TWO PUFFS TWO TIMES A DAY 10/30/2016 03/30/2017 Inactive Abilify 2 mg tablet RxNorm: 686454 1 Tablet(s) PO QD 10/27/201611/24 Inactive amoxicillin 500 mg capsule RxNorm: 180186 1 Capsule(s) PO TID 10/1410/23/2016 Inactive amoxicillin 500 mg capsule RxNorm: 355973 1 Capsule(s) PO TID 10/1410/13/2016 Inactive Synthroid 112 mcg tablet RxNorm: 144338 TAKE ONE TABLET BY MOUT H DAILY 09/28/2016 12/29/2016 Inactive Topamax 100 mg tablet RxNorm: 190753 TAKE ONE TABLET BY MOUTH EVERY NIGHT AT BEDTIME 09/28/2016 01/28/2017 Inactive Premarin 0.45 mg tablet RxNorm: 402417 TAKE ONE TABLET BY MOUTH DAILY 09/28/2016 12/29/2016 Inactive metformin ER 500 mg tablet,extended release 24 hr RxNorm: 86 0975 TAKE ONE TABLET BY MOUTH DAILY 09/28/2016 12/29/2016 Inactive Ventolin HFA 90 mcg/actuation aerosol inhaler RxNorm: 215863 INHALE TWO PUFFS BY MOUTH EVERY 4 HOURS NEEDED 09/22/2016 10/23/2016 Inactive Pulmicort 1 mg/2 mL suspension for nebulization RxNorm: 6168 19 1 Unit Dose INH BID Dx: COPD (J44.9) 09/10/2016 08/16/2017 Inactive Pulmicort 1 mg/2 mL suspension for nebulization RxNorm: 6168 19 1 Unit Dose INH BID 09/10/2016 09/09/2016 Inactive Brovana 15 mcg/2 mL solution for nebulization RxNorm: 794018 1 Unit Dose INH BID Dx: COPD (J44.9) 09/10/2016 01/25/2018 Inactive Brovana 15 mcg/2 mL solution for nebulization RxNorm: 187141 1 Unit Dose INH BID 09/10/2016 09/09/2016 Inactive ipratropium-albuterol 0.5 mg-3 mg(2.5 mg base)/3 mL ne bulization soln RxNorm: 7600899 1 Unit Dose INH Q4H as needed Dx: COPD (J44.9) 09/10/2016 0 02/12/2019 Inactive orphenadrine citrate ER 100 mg tablet,extended release RxNor m: 685369 1 Tablet(s) PO BID for muscle spasm--replaces methocarbamol 09/09/2016 Inactive Chantix Continuing Month Box 1 mg tablet RxNorm: 013403 Tablet(s) PO as directed 09/09/2016 10/30/2016 Inactive orphenadrine citrate ER 100 mg tablet,extended release RxNor m: 298652 1 Tablet(s) PO BID for muscle spasm 09/09/2016 09/08/2016 Inactive Spiriva with HandiHaler 18 mcg and inhalation capsules RxNor m: 932612 INHALE THE ENTIRE CONTENTS OF 1 CAPSULE ONCE A DAY USING HANDIHALER 09/01/201605/2017 Inactive Daliresp 500 mcg tablet RxNorm: 6572546 1 Tablet(s) PO QD 08/27/2016 03/01/2017 Inactive prednisone 20 mg tablet RxNorm: 048829 3 Tablet(s) PO T ID for 3 days then 1 po BID for 3 days then one daily for 3 days 08/26/2016 04/28/2017 Inactiv e Wellbutrin XL 300 mg 24 hr tablet, extended release RxNorm: 912779 TAKE ONE TABLET BY MOUTH EVERY MORNING 07/29/2016 10/26/2016 Inactive gabapentin 600 mg tablet RxNorm: 018404 1 Tablet(s) PO BID 06/26/20 16 12/22/2016 Inactive fluoxetine 40 mg capsule RxNorm: 801982 TAKE ONE CAPSULE BY BENOIT TH EVERY MORNING 06/24/2016 11/20/2016 Inactive Duragesic 100 mcg/hr transdermal patch RxNorm: 549237 2 Application TD Q48H for pain 06/05/2016 07/04/2016 Inactive oxycodone 10 mg tablet RxNorm: 7907597 1-2 Tablet(s) PO QID as n eeded for pain 06/05/2016 03/17/2017 Inactive Belladonna-Phenobarbital 48 mg tablet,extended release RxNor m: 2 Tablet(s) PO TID 06/05/2016 01/19/2017 Inactive Premarin 0.45 mg tablet RxNorm: 696483 TAKE ONE TABLET BY MOUTH DAILY 05/27/2016 09/23/2016 Inactive Topamax 100 mg tablet RxNorm: 046772 TAKE ONE TABLET BY MOUTH EVERY NIGHT AT BEDTIME 05/27/2016 09/27/2016 Inactive Synthroid 112 mcg tablet RxNorm: 644954 TAKE ONE TABLET BY MOUT H DAILY 05/27/2016 09/23/2016 Inactive metformin ER 500 mg tablet,extended release 24 hr RxNorm: 86 0975 TAKE ONE TABLET BY MOUTH DAILY 05/27/2016 09/23/2016 Inactive Symbicort 160 mcg-4.5 mcg/actuation HFA aerosol inhaler RxNo rm: 7980397 INHALE TWO PUFFS TWO TIMES A DAY 05/27/2016 10/23/2016 Inactive Ventolin HFA 90 mcg/actuation aerosol inhaler RxNorm: 917321 INHALE TWO PUFFS BY MOUTH EVERY 4 HOURS NEEDED 05/21/2016 07/07/2016 Inactive omeprazole 40 mg capsule,delayed release RxNorm: 630866 1 Capsu le(s) PO QD 05/06/2016 08/03/2016 Inactive metformin ER 500 mg tablet,extended release 24 hr RxNorm: 86 0975 TAKE ONE TABLET BY MOUTH DAILY 04/23/2016 05/22/2016 Inactive methocarbamol 750 mg tablet RxNorm: 572461 2 Tablet(s) PO TID as needed for muscle spasm 04/23/2016 09/08/2016 Inactive Synthroid 112 mcg tablet RxNorm: 181821 TAKE ONE TABLET BY MOUT H DAILY 04/23/2016 05/22/2016 Inactive Spiriva with HandiHaler 18 mcg and inhalation capsules RxNor m: 115057 INHALE THE ENTIRE CONTENTS OF 1 CAPSULE ONCE A DAY USING HANDIHALER 04/09/201608/2016 Inactive Diflucan 100 mg tablet RxNorm: 982501 1 Tablet(s) PO QD 04/08/2016 Inactive doxycycline hyclate 100 mg capsule RxNorm: 5908337 1 Capsule(s) PO BID 04/08/2016 04/17/2016 Inactive doxycycline hyclate 100 mg capsule RxNorm: 8337660 1 Capsule(s) PO BID 04/08/2016 04/07/2016 Inactive Diflucan 100 mg tablet RxNorm: 727053 1 Tablet(s) PO QD 04/08/2016 Inactive ondansetron HCl 4 mg tablet RxNorm: 874419 1 Tablet(s) PO Q4H as needed for nausea and vomiting 04/08/2016 09/22/2017 Inactive gabapentin 600 mg tablet RxNorm: 005918 TAKE ONE TABLET BY MOUT H TWICE A DAY 03/24/2016 06/25/2016 Inactive Synthroid 112 mcg tablet RxNorm: 125796 TAKE ONE TABLET BY MOUT H DAILY 02/25/2016 04/22/2016 Inactive Levaquin 500 mg tablet RxNorm: 068282 1 Tablet(s) PO QD 01/23/2016 Inactive prednisone 20 mg tablet RxNorm: 961666 1 Tablet(s) PO T ID for 3 days then 1 po BID for 3 days then one daily for 3 days 01/23/2016 08/25/2016 Inactiv e ASSET4 Ultra Test strips RxNorm: TEST BLOOD SUGAR ONCE DAILY 250.00 01/09/2016 11/04/2017 Inactive methocarbamol 750 mg tablet RxNorm: 037282 2 Tablet(s) PO TID as needed for muscle spasm 01/09/2016 04/23/2016 Inactive lactulose 10 gram/15 mL oral solution RxNorm: 519107 [address](s) PO QD 01/09/2016 09/22/2017 Inactive TAKE 1 TABLESPOON BY MOUTH ONCE DAILY metformin ER 500 mg tablet,extended release 24 hr RxNorm: 86 0975 1 Tablet(s) PO QD 12/26/2015 04/22/2016 Inactive fluoxetine 20 mg capsule RxNorm: 010736 1 Capsule(s) PO QD 12/23/19 16 06/19/2016 Inactive Premarin 0.45 mg tablet RxNorm: 704012 TAKE ONE TABLET BY MOUTH DAILY 12/23/2015 05/20/2016 Inactive fluoxetine 40 mg capsule RxNorm: 569766 1 Capsule(s) PO QD 12/23/19 16 06/19/2016 Inactive TAKE ONE CAPSULE BY MOUTH EV JANKI MORNING azithromycin 500 mg tablet RxNorm: 956520 1 Tablet(s) PO QD 016 12/19/2015 Inactive Zofran 4 mg tablet RxNorm: 025576 1 Tablet(s) PO Q4H prn nausea /vomiting 12/13/2015 03/30/2018 Inactive azithromycin 500 mg tablet RxNorm: 497724 1 Tablet(s) PO QD 016 12/12/2015 Inactive Duragesic 100 mcg/hr transdermal patch RxNorm: 283921 2 Application TD Q48H for pain 12/09/2015 01/07/2016 Inactive oxycodone 10 mg tablet RxNorm: 4219749 1-2 Tablet(s) PO QID as n eeded for pain 12/09/2015 06/04/2016 Inactive Bactroban 2 % topical cream RxNorm: 409845 Application TOP BID 11/2208/25/2016 Inactive doxycycline hyclate 100 mg capsule RxNorm: 6056090 1 Capsule(s) PO BID 12/03/2015 12/12/2015 Inactive Topamax 100 mg tablet RxNorm: 612312 TAKE ONE TABLET BY MOUTH EVERY NIGHT AT BEDTIME 11/25/2015 05/22/2016 Inactive Symbicort 160 mcg-4.5 mcg/actuation HFA aerosol inhaler RxNo rm: 5192254 INHALE TWO PUFFS TWO TIMES A DAY 11/25/2015 05/22/2016 Inactive Synthroid 112 mcg tablet RxNorm: 366949 Tablet(s) TAKE ONE TABLET BY MOUTH DAILY 11/25/2015 02/22/2016 Inactive omeprazole 40 mg capsule,delayed release RxNorm: 511053 1 Capsu le(s) PO QD 11/12/2015 05/05/2016 Inactive oxycodone 10 mg tablet RxNorm: 1251269 1-2 Tablet(s) PO QID as n eeded for pain 11/05/2015 12/08/2015 Inactive Duragesic 100 mcg/hr transdermal patch RxNorm: 844494 2 Application TD Q48H for pain 11/05/2015 12/04/2015 Inactive omeprazole 40 mg capsule,delayed release RxNorm: 156841 1 Capsu le(s) PO QD 10/07/2015 11/11/2015 Inactive Januvia 100 mg tablet RxNorm: 956971 TAKE ONE TABLET BY MOUTH DAILY 09/11/2015 12/25/2015 Inactive Zithromax 500 mg tablet RxNorm: 070770 1 Tablet(s) PO QD 09/10/2015 1 Inactive prednisone 20 mg tablet RxNorm: 781640 1 Tablet(s) PO T ID for 3 days then 1 po BID for 3 days then one daily for 3 days 09/10/2015 08/25/2016 Inactiv e Wellbutrin XL 300 mg 24 hr tablet, extended release RxNorm: 334166 1 Tablet(s) PO QAM 09/10/2015 12/02/2015 Inactive Topamax 100 mg tablet RxNorm: 148200 TAKE ONE TABLET BY MOUTH EVERY NIGHT AT BEDTIME 09/02/2015 11/24/2015 Inactive Synthroid 112 mcg tablet RxNorm: 167646 TAKE ONE TABLET BY MOUT H DAILY 09/02/2015 11/25/2015 Inactive methocarbamol 750 mg tablet RxNorm: 022258 2 Tablet(s) PO TID as needed for muscle spasm 08/15/2015 01/09/2016 Inactive Wellbutrin XL 150 mg 24 hr tablet, extended release RxNorm: 174138 TAKE ONE TABLET BY MOUTH EVERY MORNING 08/13/2015 08/13/2015 Inactive gabapentin 600 mg tablet RxNorm: 570574 1 Tablet(s) PO BID 08/13/20 15 02/08/2016 Inactive Wellbutrin XL 300 mg 24 hr tablet, extended release RxNorm: 964525 1 Tablet(s) PO QAM 08/06/2015 09/09/2015 Inactive Wellbutrin XL 150 mg 24 hr tablet, extended release RxNorm: 255190 1 Tablet(s) PO QAM 07/18/2015 08/05/2015 Inactive prednisone 20 mg tablet RxNorm: 153856 1 Tablet(s) PO BID 07/18/2015 07/22/2015 Inactive doxycycline hyclate 100 mg tablet,delayed release RxNorm: 43 4018 1 Tablet(s) PO BID 07/18/2015 07/27/2015 Inactive pravastatin 40 mg tablet RxNorm: 532500 1 Tablet(s) PO QD NEEDS FASTING LAB 07/15/2015 07/14/2015 Inactive pravastatin 40 mg tablet RxNorm: 675719 1 Tablet(s) PO QD NEEDS FASTING LAB 07/15/2015 01/25/2018 Inactive Ventolin HFA 90 mcg/actuation aerosol inhaler RxNorm: 828281 2 Puff(s) INH Q4H 07/08/2015 07/07/2015 Inactive prn Premarin 0.45 mg tablet RxNorm: 700597 1 Tablet(s) PO QD 07/01/2015 0 12/22/2015 Inactive pravastatin 40 mg tablet RxNorm: 094737 1 Tablet(s) PO QD NEEDS FASTING LAB 06/14/2015 07/15/2015 Inactive Ventolin HFA 90 mcg/actuation aerosol inhaler RxNorm: 1916063 2 Puff(s) INH Q4H 06/06/2015 07/08/2015 Inactive prn albuterol sulfate 2.5 mg/3 mL (0.083 %) solution for n ebulization RxNorm: 676699 1 Unit Dose INH QID 05/30/2015 No Stop Date Active Duragesic 100 mcg/hr transdermal patch RxNorm: 139810 2 Application TD Q48H for pain 04/29/2015 05/28/2015 Inactive gabapentin 600 mg tablet RxNorm: 430929 1 Tablet(s) PO BID 04/11/20 15 08/13/2015 Inactive Onglyza 5 mg tablet RxNorm: 841309 1 Tablet(s) PO QD for blood suga r 04/10/2015 04/15/2015 Inactive [Brand Copay Card: RxBIN:[id number] PCN:CRISTIANA RxGRP:[id number] ID#:[id number]] methocarbamol 750 mg tablet RxNorm: 691996 2 Tablet(s) PO TID as needed for muscle spasm 03/28/2015 08/15/2015 Inactive pravastatin 40 mg tablet RxNorm: 840802 1 Tablet(s) PO QD 03/19/2015 03/18/2015 Inactive pravastatin 40 mg tablet RxNorm: 898522 1 Tablet(s) PO QD 03/19/2015 06/14/2015 Inactive lactulose 10 gram/15 mL oral solution RxNorm: 976231 [address]s) PO QD 03/07/2015 01/09/2016 Inactive TAKE 1 TABLESPOON BY MOUTH ONCE DAILY oxycodone 20 mg tablet RxNorm: 1276250 1 Tablet(s) PO QID as nee ded for pain 03/05/2015 07/08/2015 Inactive Topamax 100 mg tablet RxNorm: 058493 1 Tablet(s) PO QHS TAKE ONE TABLET BY MOUTH AT BEDTIME 02/25/2015 02/12/2019 Inactive metformin ER 500 mg tablet,extended release 24 hr RxNorm: 86 0975 1 Tablet(s) PO QD 02/11/2015 03/04/2015 Inactive take one tablet by mouth every day Daliresp 500 mcg tablet RxNorm: 2787674 1 Tablet(s) PO QD 02/11/2015 08/09/2015 Inactive Endocet 10 mg-325 mg tablet RxNorm: 3970001 1 Tablet(s) PO Q4H as needed for pain 01/23/2015 01/23/2015 Inactive gabapentin 600 mg tablet RxNorm: 678861 1 Tablet(s) PO BID 01/23/20 15 04/11/2015 Inactive methocarbamol 750 mg tablet RxNorm: 171861 2 Tablet(s) PO TID as needed for muscle spasm 01/15/2015 02/13/2015 Inactive fluoxetine 40 mg capsule RxNorm: 244111 1 Capsule(s) PO QD 01/14/20 15 12/23/2015 Inactive TAKE ONE CAPSULE BY MOUTH EV JANKI MORNING fluoxetine 20 mg capsule RxNorm: 723035 1 Capsule(s) PO QD 01/14/20 15 12/23/2015 Inactive Premarin 0.45 mg tablet RxNorm: 894296 1 Tablet(s) PO QD 01/02/2015 0 07/01/2015 Inactive Endocet 10 mg-325 mg tablet RxNorm: 9918261 1-2 Tablet(s) PO Q4H 02/12/2019 Inactive PRN PAIN Duragesic 100 mcg/hr transdermal patch RxNorm: 727477 2 Application TD Q48H for pain 12/25/2014 01/23/2015 Inactive Topamax 100 mg tablet RxNorm: 887193 1 Tablet(s) PO QHS TAKE ONE TABLET BY MOUTH AT BEDTIME 12/25/2014 02/24/2015 Inactive Tudorza Pressair 400 mcg/actuation breath activated RxNorm: 5563094 1 BID INHALE ONE PUFF INTO LUNGS TWO TIMES A DAY 12/17/2014 05/15/2015 Inactive Endocet 10 mg-325 mg tablet RxNorm: 3974952 1-2 Tablet(s) PO Q4H 12/19/2014 Inactive PRN PAIN Duragesic 100 mcg/hr transdermal patch RxNorm: 841442 2 Application TD Q48H for pain 11/20/2014 12/24/2014 Inactive OneTouch Ultra Test strips RxNorm: TEST BLOOD SUGAR ONCE DAILY 250.00 11/16/2014 01/08/2016 Inactive omeprazole 40 mg capsule,delayed release RxNorm: 457992 1 Capsu le(s) PO QD 11/13/2014 11/12/2015 Inactive metformin ER 500 mg tablet,extended release 24 hr RxNorm: 86 0975 1 Tablet(s) PO QD 11/12/2014 02/11/2015 Inactive take one tablet by mouth every day Symbicort 160 mcg-4.5 mcg/actuation HFA aerosol inhaler RxNo rm: 8789066 2 Puff(s) INH BID 11/12/2014 03/11/2015 Inactive INHALE 2 PUFFS O RALLY TWO TIMES A DAY gabapentin 800 mg tablet RxNorm: 650286 1 Tablet(s) PO QD TAKE ONE TABLET BY MOUTH ONCE A DAY 10/22/2014 01/01/2015 Inactive Endocet 10 mg-325 mg tablet RxNorm: 2013267 1-2 Tablet(s) PO Q4H 11/15/2014 Inactive PRN PAIN Duragesic 100 mcg/hr transdermal patch RxNorm: 741614 2 Application TD Q48H for pain 10/17/2014 11/19/2014 Inactive gabapentin 800 mg tablet RxNorm: 169456 1 Tablet(s) PO QD TAKE ONE TABLET BY MOUTH ONCE A DAY 10/04/2014 10/21/2014 Inactive Premarin 0.9 mg tablet RxNorm: 029526 1 Tablet(s) PO QD TAKE ONE TABLET BY MOUTH ONCE A DAY 10/04/2014 01/01/2015 Inactive Spiriva with HandiHaler 18 mcg & inhalation capsules RxNorm: 136636 1 Capsule(s) INH QD 10/03/2014 04/30/2015 Inactive Levaquin 500 mg tablet RxNorm: 194198 1 Tablet(s) PO QD 10/03/2014 Inactive prednisone 20 mg tablet RxNorm: 627144 1 Tablet(s) PO QD 10/03/201412/09/2013 Inactive Duragesic 100 mcg/hr transdermal patch RxNorm: 748302 2 Application TD Q48H for pain 09/18/2014 10/16/2014 Inactive Endocet 10 mg-325 mg tablet RxNorm: 5115661 1-2 Tablet(s) PO Q4H 10/16/2014 Inactive PRN PAIN Synthroid 112 mcg tablet RxNorm: 563493 1 Tablet(s) QD 09/10/2014 Inactive Synthroid 112 mcg tablet RxNorm: 410260 TAKE ONE TABLET BY MOUTH ONE TIME A DAY. NEEDS LABS 09/10/2014 02/06/2015 Inactive omeprazole 40 mg capsule,delayed release RxNorm: 290652 1 Capsu le(s) PO QD 09/03/2014 11/13/2014 Inactive omeprazole 40 mg capsule,delayed release RxNorm: 367162 1 Capsu le(s) PO QD 09/03/2014 09/02/2014 Inactive Spiriva with HandiHaler 18 mcg & inhalation capsules RxNorm: 498348 1 Capsule(s) INH QD 08/27/2014 10/02/2014 Inactive gabapentin 600 mg tablet RxNorm: 121994 1 Tablet(s) PO BID 08/27/20 14 10/22/2014 Inactive Endocet 10 mg-325 mg tablet RxNorm: 3804992 1-2 Tablet(s) PO Q4H 09/17/2014 Inactive PRN PAIN fentanyl 100 mcg/hr transdermal patch RxNorm: 157018 1 Unit Dos e TD QD 08/21/2014 09/19/2014 Inactive Daliresp 500 mcg tablet RxNorm: 1572857 1 Tablet(s) PO QD 08/13/2014 02/11/2015 Inactive Synthroid 112 mcg tablet RxNorm: 076729 TAKE ONE TABLET BY MOUTH ONE TIME A DAY. NEEDS LABS 08/10/2014 09/10/2014 Inactive Endocet 10 mg-325 mg tablet RxNorm: 5465695 1-2 Tablet(s) PO Q4H 08/17/2014 Inactive PRN PAIN Duragesic 100 mcg/hr transdermal patch RxNorm: 353928 2 Application TD Q48H for pain 07/19/2014 09/17/2014 Inactive fluoxetine 40 mg capsule RxNorm: 850065 1 Capsule(s) PO QD 07/17/20 14 01/14/2015 Inactive TAKE ONE CAPSULE BY MOUTH EV JANKI MORNING fluoxetine 20 mg capsule RxNorm: 968746 1 Capsule(s) PO QD 07/17/20 14 01/14/2015 Inactive Spiriva with HandiHaler 18 mcg & inhalation capsules RxNorm: 330168 1 Capsule(s) INH QD 07/17/2014 08/26/2014 Inactive INHALE CONTENTS OF 1 CAPSULE(S) WITH HANDIHALER ONCE DAILY Zofran 4 mg tablet RxNorm: 056877 1 Tablet(s) PO Q4H prn nausea 07/25/2014 Inactive Synthroid 112 mcg tablet RxNorm: 946887 1 Tablet(s) PO QD 07/09/2014 07/09/2014 Inactive methocarbamol 750 mg tablet RxNorm: 726619 2 Tablet(s) PO TID as needed for muscle spasm 07/09/2014 09/06/2014 Inactive Synthroid 112 mcg tablet RxNorm: 791294 1 Tablet(s) PO QD - nee d labs 07/09/2014 08/07/2014 Inactive Medrol (Aníbal) 4 mg tablets in a dose pack RxNorm: 852772 6 Tablet(s) PO QD --then as directed 07/03/2014 07/08/2014 Inactive Tudorza Pressair 400 mcg/actuation breath activated RxNorm: 7811916 1 Puff(s) INH BID 07/03/2014 12/17/2014 Inactive cefdinir 300 mg capsule RxNorm: 797622 1 Capsule(s) PO BID 07/03/20 14 07/12/2014 Inactive Topamax 100 mg tablet RxNorm: 022885 Tablet(s) TAKE ONE TABLET BY MOUTH AT BEDTIME 07/02/2014 02/25/2015 Inactive Duragesic 100 mcg/hr transdermal patch RxNorm: 732538 2 Application TD Q48H for pain 06/25/2014 07/18/2014 Inactive Endocet 10 mg-325 mg tablet RxNorm: 7720531 1-2 Tablet(s) PO Q4H 07/18/2014 Inactive PRN PAIN metformin ER 500 mg tablet,extended release 24 hr RxNorm: 86 0975 1 Tablet(s) PO QD Needs labs 06/18/2014 07/01/2014 Inactive take one tablet by mouth every day Duragesic 100 mcg/hr transdermal patch RxNorm: 478927 2 Application TD Q48H for pain 05/22/2014 06/24/2014 Inactive Synthroid 112 mcg tablet RxNorm: 658136 1 Tablet(s) PO QD 05/22/2014 07/09/2014 Inactive Endocet 10 mg-325 mg tablet RxNorm: 6699560 1-2 Tablet(s) PO Q4H 06/20/2014 Inactive PRN PAIN Endocet 10 mg-325 mg tablet RxNorm: 8742836 1-2 Tablet(s) PO Q4H 05/21/2014 Inactive PRN PAIN Duragesic 100 mcg/hr transdermal patch RxNorm: 302354 2 Application TD Q48H for pain 04/25/2014 05/21/2014 Inactive Daliresp 500 mcg tablet RxNorm: 1588093 1 Tablet(s) PO QD 04/24/2014 08/13/2014 Inactive Symbicort 160 mcg-4.5 mcg/actuation HFA aerosol inhaler RxNo rm: 5407396 2 Puff(s) INH BID 04/24/2014 08/21/2014 Inactive INHALE 2 PUFFS O RALLY TWO TIMES A DAY metformin ER 500 mg tablet,extended release 24 hr RxNorm: 86 0975 1 Tablet(s) PO QD 04/24/2014 11/12/2014 Inactive TAKE ONE TABLET BY MOUTH EVERY DAY [AttnRPh:Saving Apply/Adjudicate RxGRP:LDMGRP RxBIN:[id number] RxPCN:2012 PCode:01 ID#:[id number]] Symbicort 160 mcg-4.5 mcg/actuation HFA aerosol inhaler RxNo rm: 2969342 2 Puff(s) INH BID 04/24/2014 11/12/2014 Inactive INHALE 2 PUFFS O RALLY TWO TIMES A DAY Premarin 0.9 mg tablet RxNorm: 712621 1 Tablet(s) PO QD 04/24/2014 Inactive TAKE ONE TABLET BY MOUTH EVERY DAY metformin ER 500 mg tablet,extended release 24 hr RxNorm: 86 0975 1 Tablet(s) PO QD Needs labs 04/24/2014 06/18/2014 Inactive TAKE ONE TABLET BY MOUTH EVERY DAY [AttnRPh:Saving Apply/Adjudicate RxGRP:LDMGRP RxBIN:[id number] RxPCN:2012 PCode:01 ID#:[id number]] gabapentin 800 mg tablet RxNorm: 789082 1 Tablet(s) PO QD 04/24/2014 10/04/2014 Inactive TAKE ONE TABLET BY MOUTH EVERY DAY Topamax 100 mg tablet RxNorm: 916342 1 Tablet(s) PO QHS 04/17/2014 Inactive Topamax 100 mg tablet RxNorm: 096216 TAKE ONE TABLET BY MOUTH A T BEDTIME 04/17/2014 07/01/2014 Inactive Tudorza Pressair 400 mcg/actuation breath activated RxNorm: 4971381 1 Puff(s) INH BID 04/11/2014 07/02/2014 Inactive Duragesic 100 mcg/hr transdermal patch RxNorm: 312943 2 Application TD Q48H for pain 03/27/2014 04/24/2014 Inactive Endocet 10 mg-325 mg tablet RxNorm: 5244905 1-2 Tablet(s) PO Q4H 04/24/2014 Inactive PRN PAIN Robaxin 750 mg tablet RxNorm: 332014 2 Tablet(s) PO TID as need ed for spasm 02/23/2014 03/28/2015 Inactive Duragesic 100 mcg/hr transdermal patch RxNorm: 027475 2 Application TD Q48H for pain 02/23/2014 No Stop Date Active Endocet 10 mg-325 mg tablet RxNorm: 3723791 1-2 Tablet(s) PO Q4H 03/23/2014 Inactive PRN PAIN Synthroid 112 mcg tablet RxNorm: 220624 1 Tablet(s) PO QD TAKE ONE TABLET BY MOUTH EVERY DAY 02/15/2014 05/22/2014 Inactive Zithromax 500 mg tablet RxNorm: 563000 1 Tablet(s) PO QD 01/30/2014 0 02/05/2014 Inactive Diflucan 100 mg tablet RxNorm: 050041 1 Tablet(s) PO QD 01/30/2014 Inactive prednisone 20 mg tablet RxNorm: 461174 1 Tablet(s) PO BID 01/30/2014 02/05/2014 Inactive fluoxetine 40 mg capsule RxNorm: 174795 1 Capsule(s) PO QD 01/23/20 14 07/16/2014 Inactive TAKE ONE CAPSULE BY MOUTH EV JANKI MORNING fluoxetine 40 mg capsule RxNorm: 135533 1 Capsule(s) PO QD 01/23/20 14 07/17/2014 Inactive TAKE ONE CAPSULE BY MOUTH EV JANKI MORNING cefdinir 300 mg capsule RxNorm: 111178 1 Capsule(s) PO BID 01/16/20 14 01/29/2014 Inactive Zithromax 500 mg tablet RxNorm: 106028 1 Tablet(s) PO QD 01/16/2014 0 01/22/2014 Inactive prednisone 20 mg tablet RxNorm: 156902 1 Tablet(s) PO BID 01/16/2014 01/22/2014 Inactive Spiriva with HandiHaler 18 mcg and inhalation capsules RxNor m: 056938 1 Capsule(s) INH QD 12/18/2013 07/17/2014 Inactive INHALE CONTENT S OF 1 CAPSULE(S) WITH HANDIHALER ONCE DAILY fluoxetine 20 mg capsule RxNorm: 932393 1 Capsule(s) PO QD 12/18/19 14 06/15/2014 Inactive Spiriva with HandiHaler 18 mcg & inhalation capsules RxNorm: 457013 1 Capsule(s) INH QD 12/18/2013 06/15/2014 Inactive INHALE CONTENTS OF 1 CAPSULE(S) WITH HANDIHALER ONCE DAILY fluoxetine 20 mg capsule RxNorm: 913154 1 Capsule(s) PO QD 12/18/19 14 07/17/2014 Inactive cefdinir 300 mg capsule RxNorm: 139352 2 Capsule(s) PO QD 12/12/2013 12/21/2013 Inactive Duragesic 100 mcg/hr transdermal patch RxNorm: 819280 2 Application TD Q48H for pain 12/08/2013 12/07/2013 Inactive Topamax 100 mg tablet RxNorm: 878100 1 Tablet(s) PO QHS 12/04/2013 Inactive Endocet 10 mg-325 mg tablet RxNorm: 2182014 1-2 Tablet(s) PO Q4H 12/26/2013 Inactive PRN PAIN Robaxin 750 mg tablet RxNorm: 799988 2 Tablet(s) PO TID as need ed for spasm 11/07/2013 01/05/2014 Inactive gabapentin 800 mg tablet RxNorm: 507790 1 Tablet(s) PO QD 10/16/2013 04/24/2014 Inactive TAKE ONE TABLET BY MOUTH EVERY DAY Symbicort 160 mcg-4.5 mcg/actuation HFA aerosol inhaler RxNo rm: 7273499 2 Puff(s) INH BID 10/16/2013 04/24/2014 Inactive INHALE 2 PUFFS O RALLY TWO TIMES A DAY Premarin 0.9 mg tablet RxNorm: 064365 1 Tablet(s) PO QD 10/16/2013 Inactive TAKE ONE TABLET BY MOUTH EVERY DAY metformin ER 500 mg tablet,extended release 24 hr RxNorm: 86 0975 1 Tablet(s) PO QD 10/16/2013 04/24/2014 Inactive TAKE ONE TABLET BY MOUTH EVERY DAY Daliresp 500 mcg tablet RxNorm: 6623764 1 Tablet(s) PO QD 10/16/2013 04/24/2014 Inactive Robaxin 750 mg tablet RxNorm: 626899 2 Tablet(s) PO TID as need ed for spasm 10/10/2013 11/06/2013 Inactive Duragesic 100 mcg/hr transdermal patch RxNorm: 852463 2 Application TD Q48H for pain 10/09/2013 No Stop Date Active Soma 350 mg tablet RxNorm: 619906 1 Tablet(s) PO TID 09/27/201310/09 Inactive TAKE ONE TABLET BY MOUTH THREE TIMES A D AY lactulose 10 gram/15 mL oral solution RxNorm: 260554 [address](s) PO QD 09/13/2013 03/07/2015 Inactive TAKE 1 TABLESPOON BY MOUTH ONCE DAILY Duragesic 100 mcg/hr transdermal patch RxNorm: 711737 2 Application TD Q48H for pain 09/06/2013 No Stop Date Active Endocet 10 mg-325 mg tablet RxNorm: 7609345 1-2 Tablet(s) PO Q4H 09/27/2013 Inactive PRN PAIN lancets 28 gauge RxNorm: Miscellaneous As needed for blo od glucose sticks 08/24/2013 No Stop Date Active 16.2 mg-0.1037 mg-0.0194 mg tablet RxNorm: 7740262 Tablet(s) PO PRN for gas and cramping 08/24/2013 01/19/2017 Inactive TAKE TWO TABLET S BY MOUTH THREE TIMES A DAY NEEDED FOR GAS AND CRAMPING Topamax 100 mg tablet RxNorm: 175807 1 Tablet(s) PO QHS 07/31/2013 Inactive Diflucan 100 mg tablet RxNorm: 168081 1 Tablet(s) PO QD 07/27/2013 Inactive cefdinir 300 mg capsule RxNorm: 476922 1 Capsule(s) PO BID 07/26/20 13 08/08/2013 Inactive Daliresp 500 mcg tablet RxNorm: 5924588 1 Tablet(s) PO QD 07/25/2013 10/15/2013 Inactive fluoxetine 40 mg capsule RxNorm: 343846 1 Capsule(s) PO QD 07/25/20 13 01/22/2014 Inactive TAKE ONE CAPSULE BY MOUTH EV JANKI MORNING Senokot-S 8.6 mg-50 mg tablet RxNorm: 0990876 1 Tablet(s) PO BID 10/25/2013 Inactive doxycycline hyclate 100 mg capsule RxNorm: 9508682 1 Capsule(s) PO BID 06/28/2013 07/07/2013 Inactive prednisone 20 mg tablet RxNorm: 298225 1 Tablet(s) PO BID 06/28/2013 07/04/2013 Inactive Zofran 4 mg tablet RxNorm: 972342 1 Tablet(s) PO Q4H prn nausea 03/201307/05/2013 Inactive Spiriva with HandiHaler 18 mcg & inhalation capsules RxNorm: 873344 1 Capsule(s) INH QD 06/26/2013 12/18/2013 Inactive INHALE CONTENTS OF 1 CAPSULE(S) WITH HANDIHALER ONCE DAILY Synthroid 112 mcg tablet RxNorm: 624101 1 Tablet(s) PO QD TAKE ONE TABLET BY MOUTH EVERY DAY 06/19/2013 02/15/2014 Inactive fluoxetine 20 mg capsule RxNorm: 839939 1 Capsule(s) PO QD 06/19/20 13 12/18/2013 Inactive Ventolin HFA 90 mcg/actuation Aerosol Inhaler RxNorm: 8734659 2 Puff(s) INH Q4H 06/05/2013 No Stop Date Active prn Soma 350 mg tablet RxNorm: 211911 1 Tablet(s) PO TID 06/05/201307/04 Inactive TAKE ONE TABLET BY MOUTH THREE TIMES A D AY prednisone 20 mg tablet RxNorm: 581602 1 Tablet(s) PO QD 05/31/2013 0 06/06/2013 Inactive Topamax 100 mg tablet RxNorm: 089578 1 Tablet(s) PO QHS 05/22/2013 Inactive Levaquin 500 mg tablet RxNorm: 471121 1 Tablet(s) PO QD 05/03/2013 Inactive Diflucan 100 mg tablet RxNorm: 138952 1 Tablet(s) PO QD 05/03/2013 Inactive Daliresp 500 mcg tablet RxNorm: 6433862 1 Tablet(s) PO QD 05/01/2013 07/24/2013 Inactive Daliresp 500 mcg tablet RxNorm: 6566226 1 Tablet(s) PO QD 05/01/2013 04/30/2013 Inactive gabapentin 800 mg tablet RxNorm: 152091 1 Tablet(s) PO QD 04/10/2013 10/06/2013 Inactive TAKE ONE TABLET BY MOUTH EVERY DAY metformin ER 500 mg tablet,extended release 24 hr RxNorm: 86 0977 1 Tablet(s) PO QD 04/10/2013 10/06/2013 Inactive TAKE ONE TABLET BY MOUTH EVERY DAY Premarin 0.9 mg tablet RxNorm: 695950 1 Tablet(s) PO QD 04/10/2013 Inactive TAKE ONE TABLET BY MOUTH EVERY DAY Symbicort 160 mcg-4.5 mcg/actuation HFA aerosol inhaler RxNo rm: 9329534 2 Puff(s) INH BID 04/10/2013 10/06/2013 Inactive INHALE 2 PUFFS O RALLY TWO TIMES A DAY Synthroid 112 mcg tablet RxNorm: 102576 1 Tablet(s) PO QD TAKE ONE TABLET BY MOUTH EVERY DAY 04/10/2013 06/18/2013 Inactive Ventolin HFA 90 mcg/actuation Aerosol Inhaler RxNorm: 637637 2 Puff(s) INH Q4H 04/10/2013 No Stop Date Active prn fentanyl 100 mcg/hr transdermal patch RxNorm: 474727 1 Unit Dos e TD QD 04/03/2013 05/02/2013 Inactive Endocet 10 mg-325 mg tablet RxNorm: 3897139 1-2 Tablet(s) PO Q4H 05/02/2013 Inactive PRN PAIN Topamax 100 mg tablet RxNorm: 352296 1 Tablet(s) PO QHS 03/13/2013 Inactive Reglan 10 mg tablet RxNorm: 626177 1 Tablet(s) PO QID b efore meals and at bedtime 03/13/2013 04/09/2015 Inactive fluoxetine 20 mg capsule RxNorm: 797700 1 Capsule(s) PO QD 02/28/20 13 05/27/2013 Inactive Ventolin HFA 90 mcg/actuation Aerosol Inhaler RxNorm: 783249 2 Puff(s) INH Q4H 02/13/2013 No Stop Date Active prn fluoxetine 40 mg capsule RxNorm: 930125 1 Capsule(s) PO QD 01/31/20 13 07/24/2013 Inactive TAKE ONE CAPSULE BY MOUTH EV JANKI MORNING Soma 350 mg tablet RxNorm: 453198 1 Tablet(s) PO TID 01/20/201302/18 Inactive TAKE ONE TABLET BY MOUTH THREE TIMES A D AY Endocet 10 mg-325 mg tablet RxNorm: 8869197 1-2 Tablet(s) PO Q4H 02/06/2013 Inactive PRN PAIN MS Contin 200 mg tablet,extended release RxNorm: 867507 1 Table t(s) PO BID 01/18/2013 02/06/2013 Inactive Ventolin HFA 90 mcg/actuation Aerosol Inhaler RxNorm: 678898 2 Puff(s) INH Q4H 01/04/2013 No Stop Date Active prn Spiriva with HandiHaler 18 mcg & inhalation capsules RxNorm: 548475 1 Capsule(s) INH QD 12/29/2012 06/25/2013 Inactive INHALE CONTENTS OF 1 CAPSULE(S) WITH HANDIHALER ONCE DAILY Spiriva with HandiHaler 18 mcg & inhalation capsules RxNorm: 634787 1 Capsule(s) INH QD 12/26/2012 12/28/2012 Inactive INHALE CONTENTS OF 1 CAPSULE(S) WITH HANDIHALER ONCE DAILY Synthroid 112 mcg tablet RxNorm: 094655 Tablet(s) PO TA KE ONE TABLET BY MOUTH EVERY DAY 12/26/2012 04/09/2013 Inactive Endocet 10 mg-325 mg tablet RxNorm: 3595867 1-2 Tablet(s) PO Q4H 01/17/2013 Inactive PRN PAIN MS Contin 200 mg tablet,extended release RxNorm: 331904 1 Table t(s) PO BID 12/21/2012 01/17/2013 Inactive fluoxetine 20 mg capsule RxNorm: 628095 1 Capsule(s) PO QD 12/06/19 13 02/26/2013 Inactive Synthroid 112 mcg tablet RxNorm: 420740 1 Tablet(s) PO QD 12/06/2012 02/12/2019 Inactive TAKE ONE TABLET BY MOUTH EVERY DAY Ventolin HFA 90 mcg/actuation Aerosol Inhaler RxNorm: 798206 2 Puff(s) INH Q4H 12/06/2012 No Stop Date Active prn Reglan 10 mg tablet RxNorm: 170968 1 Tablet(s) PO QID b efore meals and at bedtime 11/24/2012 03/12/2013 Inactive Topamax 100 mg tablet RxNorm: 817273 1 Tablet(s) PO QHS 11/16/2012 Inactive Ventolin HFA 90 mcg/actuation Aerosol Inhaler RxNorm: 092781 2 Puff(s) INH Q4H 11/09/2012 No Stop Date Active prn gabapentin 800 mg tablet RxNorm: 028078 1 Tablet(s) PO QD 10/27/2012 04/09/2013 Inactive TAKE ONE TABLET BY MOUTH EVERY DAY metformin ER 500 mg tablet,extended release 24 hr RxNorm: 86 0977 1 Tablet(s) PO QD 10/27/2012 04/09/2013 Inactive TAKE ONE TABLET BY MOUTH EVERY DAY Symbicort 160 mcg-4.5 mcg/actuation HFA Aerosol Inhaler RxNo rm: 5922084 2 Puff(s) INH BID 10/27/2012 04/09/2013 Inactive INHALE 2 PUFFS O RALLY TWO TIMES A DAY Premarin 0.9 mg tablet RxNorm: 443547 1 Tablet(s) PO QD 10/27/2012 Inactive TAKE ONE TABLET BY MOUTH EVERY DAY Endocet 10 mg-325 mg tablet RxNorm: 5312561 1-2 Tablet(s) PO Q4H 11/24/2012 Inactive PRN PAIN MS Contin 200 mg tablet,extended release RxNorm: 074152 1 Table t(s) PO BID 10/26/2012 11/24/2012 Inactive Soma 350 mg tablet RxNorm: 076865 1 Tablet(s) PO TID 10/04/201211/02 Inactive TAKE ONE TABLET BY MOUTH THREE TIMES A D AY Ventolin HFA 90 mcg/actuation Aerosol Inhaler RxNorm: 454124 2 Puff(s) INH Q4H 10/03/2012 No Stop Date Active prn Daliresp 500 mcg tablet RxNorm: 0880313 1 Tablet(s) PO QD 09/28/2012 09/27/2012 Inactive Daliresp 500 mcg tablet RxNorm: 6118591 1 Tablet(s) PO QD 09/28/2012 04/25/2013 Inactive fluoxetine 20 mg capsule RxNorm: 843032 1 Capsule(s) PO QD 09/05/20 12 12/06/2012 Inactive Topamax 50 mg tablet RxNorm: 060782 Tablet(s) PO for 1w k then 1 po q HS for 1wk then 2 po q HS 08/29/2012 09/27/2012 Inactive TAKE 1/2 TABLET BY MOUTH AT BEDTIME FOR 1 WEEK, THEN 1 TABLET AT BEDTIME FOR 1 WEEK, THEN 2 TABLETS AT BEDTIME Topamax 100 mg tablet RxNorm: 383441 1 Tablet(s) PO QHS 08/29/2012 Inactive Ventolin HFA 90 mcg/actuation Aerosol Inhaler RxNorm: 360040 2 Puff(s) INH Q4H 08/19/2012 No Stop Date Active prn Ventolin HFA 90 mcg/actuation Aerosol Inhaler RxNorm: 647382 2 Puff(s) INH Q4H 08/15/2012 No Stop Date Active prn Synthroid 112 mcg tablet RxNorm: 165084 1 Tablet(s) PO QD 08/10/2012 11/07/2012 Inactive TAKE ONE TABLET BY MOUTH EVERY DAY Synthroid 112 mcg tablet RxNorm: 699427 1 Tablet(s) PO QD 08/01/2012 08/09/2012 Inactive TAKE ONE TABLET BY MOUTH EVERY DAY Reglan 10 mg tablet RxNorm: 275104 1 Tablet(s) PO QID b efore meals and at bedtime 08/01/2012 11/23/2012 Inactive fluoxetine 40 mg capsule RxNorm: 721028 1 Capsule(s) PO QD 08/01/20 12 01/27/2013 Inactive TAKE ONE CAPSULE BY MOUTH EV JANKI MORNING Ventolin HFA 90 mcg/actuation Aerosol Inhaler RxNorm: 219319 2 Puff(s) INH Q4H 08/01/2012 No Stop Date Active prn Soma 350 mg tablet RxNorm: 843083 1 Tablet(s) PO TID 07/20/201208/18 Inactive TAKE ONE TABLET BY MOUTH THREE TIMES A D AY Spiriva with HandiHaler 18 mcg & inhalation capsules RxNorm: 366298 1 Capsule(s) INH 07/01/2012 12/25/2012 Inactive INHALE CONTENTS OF 1 CAPSULE(S) WITH HANDIHALER ONCE DAILY Zithromax 250 mg Tab RxNorm: 674675 2 Tablet(s) PO QD 06/28/201206/22 Inactive MS Contin 200 mg tablet,extended release RxNorm: 903698 1 Table t(s) PO BID 06/28/2012 07/27/2012 Inactive Endocet 10 mg-325 mg tablet RxNorm: 5417026 1-2 Tablet(s) PO Q4H 07/27/2012 Inactive PRN PAIN Topamax 100 mg tablet RxNorm: 288188 1 Tablet(s) PO QHS 06/28/2012 Inactive 16.2 mg-0.1037 mg-0.0194 mg tablet RxNorm: 0325445 Tablet(s) PO PRN for gas and cramping 06/08/2012 08/23/2013 Inactive TAKE TWO TABLET S BY MOUTH THREE TIMES A DAY NEEDED FOR GAS AND CRAMPING Ventolin HFA 90 mcg/actuation Aerosol Inhaler RxNorm: 688698 2 Puff(s) INH Q4H 05/23/2012 No Stop Date Active prn Ventolin HFA 90 mcg/actuation Aerosol Inhaler RxNorm: 003038 2 Puff(s) INH Q4H 05/11/2012 No Stop Date Active prn Synthroid 112 mcg tablet RxNorm: 061702 1 Tablet(s) PO QD 05/09/2012 07/31/2012 Inactive TAKE ONE TABLET BY MOUTH EVERY DAY gabapentin 800 mg tablet RxNorm: 629012 1 Tablet(s) PO QD 05/09/2012 10/26/2012 Inactive TAKE ONE TABLET BY MOUTH EVERY DAY fluoxetine 40 mg capsule RxNorm: 801763 1 Capsule(s) PO QD 05/09/2007/31/2012 Inactive TAKE ONE CAPSULE BY MOUTH EV JANKI MORNING metformin ER 500 mg tablet,extended release 24 hr RxNorm: 86 0977 1 Tablet(s) PO QD 05/09/2012 10/26/2012 Inactive TAKE ONE TABLET BY MOUTH EVERY DAY Premarin 0.9 mg tablet RxNorm: 422839 1 Tablet(s) PO QD 05/09/2012 Inactive TAKE ONE TABLET BY MOUTH EVERY DAY Symbicort 160 mcg-4.5 mcg/actuation HFA Aerosol Inhaler RxNo rm: 9434784 2 Puff(s) INH BID 05/09/2012 10/26/2012 Inactive INHALE 2 PUFFS O RALLY TWO TIMES A DAY Endocet 10 mg-325 mg Tab RxNorm: 2859154 1-2 Tablet(s) PO Q4H 04/2705/26/2012 Inactive PRN PAIN MS Contin 200 mg Tab RxNorm: 560038 1 Tablet(s) PO BID 04/26/201202/2012 Inactive Ventolin HFA 90 mcg/actuation Aerosol Inhaler RxNorm: 715664 2 Puff(s) INH Q4H 04/25/2012 05/10/2012 Inactive prn Soma 350 mg tablet RxNorm: 882711 2 Tablet(s) PO TID 04/19/201207/19 Inactive TAKE ONE TABLET BY MOUTH THREE TIMES A D AY Ventolin HFA 90 mcg/actuation Aerosol Inhaler RxNorm: 411984 2 Puff(s) INH Q4H 04/12/2012 04/24/2012 Inactive prn Reglan 10 mg tablet RxNorm: 368215 1 Tablet(s) PO QID b efore meals and at bedtime 04/11/2012 07/31/2012 Inactive MS Contin 200 mg Tab RxNorm: 914767 1 Tablet(s) PO BID 03/30/201202/2012 Inactive Endocet 10 mg-325 mg Tab RxNorm: 9915301 1-2 Tablet(s) PO Q4H 03/3004/26/2012 Inactive PRN PAIN MS Contin 200 mg Tab RxNorm: 535751 1 Tablet(s) PO BID 03/02/201206/2012 Inactive Endocet 10 mg-325 mg Tab RxNorm: 5524631 1-2 Tablet(s) PO Q4H 03/0203/29/2012 Inactive PRN PAIN Daliresp 500 mcg tablet RxNorm: 1806155 1 Tablet(s) PO QD 03/01/2012 09/28/2012 Inactive MS Contin 200 mg Tab RxNorm: 892046 1 Tablet(s) PO BID 02/02/201208/2012 Inactive Endocet 10 mg-325 mg Tab RxNorm: 5391437 1-2 Tablet(s) PO Q4H 02/0103/01/2012 Inactive PRN PAIN fluoxetine 40 mg capsule RxNorm: 158572 1 Capsule(s) PO QD 02/02/2008/01/2012 Inactive TAKE ONE CAPSULE BY MOUTH EV JANKI MORNING Synthroid 112 mcg Tab RxNorm: 367706 1 Tablet(s) PO QD 01/18/2012 Inactive TAKE ONE TABLET BY MOUTH EVERY DAY lactulose 10 gram/15 mL oral solution RxNorm: 085927 [address]s) PO QD 01/18/2012 No Stop Date Active TAKE 1 TABLESPOON BY MOUTH ONCE DAILY Ventolin HFA 90 mcg/actuation Aerosol Inhaler RxNorm: 526547 2 Puff(s) INH Q4H 01/18/2012 04/11/2012 Inactive prn MS Contin 200 mg Tab RxNorm: 530148 1 Tablet(s) PO BID 01/05/201210/2012 Inactive Endocet 10 mg-325 mg Tab RxNorm: 3760628 1-2 Tablet(s) PO Q4H 01/0502/01/2012 Inactive PRN PAIN ProAir HFA 90 mcg/Actuation Aerosol Inhaler RxNorm: 327849 2 Pu ff(s) INH Q4H 12/21/2011 No Stop Date Active prn for wheezing or shortness of breath Spiriva with HandiHaler 18 mcg & inhalation Caps RxNorm: 580 261 1 Capsule(s) INH 12/21/2011 06/30/2012 Inactive INHALE CONTENTS OF 1 CAPSULE(S) WITH HANDIHALER ONCE DAILY Reglan 10 mg Tab RxNorm: 581351 1 Tablet(s) PO QID before meals and at bedtime 12/21/2011 04/10/2012 Inactive Synthroid 112 mcg Tab RxNorm: 855754 1 Tablet(s) PO QD 12/21/2011 Inactive TAKE ONE TABLET BY MOUTH EVERY DAY Endocet 10 mg-325 mg Tab RxNorm: 6987909 1-2 Tablet(s) PO Q4H 11/2512/24/2011 Inactive PRN PAIN MS Contin 200 mg Tab RxNorm: 720222 1 Tablet(s) PO BID 11/25/201112/2011 Inactive lactulose 10 gram/15 mL Oral Soln RxNorm: 075627 Milliliter(s) PO 1 No Stop Date Active TAKE 1 TABLESPOON BY MOUTH O NCE DAILY lactulose 10 gram/15 mL Oral Soln RxNorm: 013625 Milliliter(s) PO 1 12/12/2010 11/20/2011 Inactive TAKE 1 TABLESPOON BY MOUTH O NCE DAILY Premarin 0.9 mg Tab RxNorm: 196601 1 Tablet(s) PO QD 10/12/201105/08 Inactive TAKE ONE TABLET BY MOUTH EVERY DAY fluoxetine 20 mg capsule RxNorm: 807629 1 Capsule(s) PO QD 10/12/2009/05/2012 Inactive TAKE ONE CAPSULE BY MOUTH EV JANKI DAY Synthroid 112 mcg Tab RxNorm: 948168 1 Tablet(s) PO QD 10/12/2011 Inactive TAKE ONE TABLET BY MOUTH EVERY DAY metformin ER 500 mg 24 hr Tab RxNorm: 242997 1 Tablet(s) PO QD 09/2311/10/2011 Inactive TAKE ONE TABLET BY MOUTH GLYNN RY DAY Synthroid 112 mcg Tab RxNorm: 813181 1 Tablet(s) PO QD 10/12/2011 Inactive TAKE ONE TABLET BY MOUTH EVERY DAY metformin ER 500 mg 24 hr Tab RxNorm: 118879 1 Tablet(s) PO QD 09/2310/11/2011 Inactive TAKE ONE TABLET BY MOUTH GLYNN RY DAY Prevacid 30 mg Cap RxNorm: 491926 Capsule(s) PO 10/12/2011 01/25/2012 Inactive TAKE ONE CAPSULE BY MOUTH EVERY DAY Symbicort 160 mcg-4.5 mcg/actuation HFA Aerosol Inhaler RxNo rm: 7802009 2 Puff(s) INH BID 10/12/2011 05/08/2012 Inactive INHALE 2 PUFFS O RALLY TWO TIMES A DAY gabapentin 800 mg Tab RxNorm: 643529 1 Tablet(s) PO QD 10/12/2011 Inactive TAKE ONE TABLET BY MOUTH EVERY DAY MS Contin 200 mg Tab RxNorm: 562646 1 Tablet(s) PO BID 09/23/201111/2010 Inactive Endocet 10 mg-325 mg Tab RxNorm: 2922593 1-2 Tablet(s) PO Q4H 09/2310/22/2011 Inactive PRN PAIN Endocet 10 mg-325 mg Tab RxNorm: 8913714 1-2 Tablet(s) PO Q4H 08/2109/19/2011 Inactive PRN PAIN MS Contin 200 mg Tab RxNorm: 020802 1 Tablet(s) PO BID 08/21/2011 Inactive Diflucan 100 mg Tab RxNorm: 538862 1 Tablet(s) PO QD 08/10/201108/16 Inactive cefdinir 300 mg Cap RxNorm: 641504 2 Capsule(s) PO QD 08/10/201107/24 Inactive Reglan 10 mg Tab RxNorm: 649075 1 Tablet(s) PO AC & HS 07/15/2011 Inactive Endocet 10 mg-325 mg Tab RxNorm: 9858234 1-2 Tablet(s) PO Q4H 07/1508/13/2011 Inactive PRN PAIN One Touch Ultra Test strips RxNorm: Miscellaneous BID 06/11/2011 1 01/16/2014 Inactive TEST TWO TIMES A DAY lactulose 10 gram/15 mL Oral Soln RxNorm: 395541 Milliliter(s) PO 0 06/10/2011 10/11/2011 Inactive TAKE 1 TABLESPOON BY MOUTH O NCE DAILY Chantix Continuing Month Aníbal 1 mg Tab RxNorm: 503396 Tablet(s) PO 0 06/10/2011 11/02/2011 Inactive TAKE DIRECTED - PER PACK[employer] GE INSTRUCTIONS fluoxetine 40 mg Cap RxNorm: 662610 Capsule(s) PO 06/10/2011 02/02/20 12 Inactive TAKE ONE CAPSULE BY MOUTH EVERY MORNING Chantix Continuing Month Aníbal 1 mg Tab RxNorm: 670932 Ta blet(s) PO TAKE DIRECTED - PER PACKAGE INSTRUCTIONS 05/13/2011 06/09/2011 Inactive Soma 350 mg Tab RxNorm: 070890 Tablet(s) PO TAKE ON E TABLET BY MOUTH THREE TIMES A DAY 05/13/2011 04/18/2012 Inactive Chantix Continuing Month Aníbal 1 mg Tab RxNorm: 086199 Ta blet(s) PO as directed per package instructions. 04/22/2011 05/12/2011 Inactive Symbicort 160 mcg-4.5 mcg/Actuation HFA Aerosol Inhaler RxNo rm: [id number] HFA Aerosol Inhaler INH INHALE 2 PUFFS ORALLY TWO TIMES A DAY 04/13/2011 Inactive Synthroid 112 mcg Tab RxNorm: 051396 Tablet(s) PO TAKE ONE TABLET BY MOUTH EVERY DAY 04/13/2011 10/12/2011 Inactive Premarin 0.9 mg Tab RxNorm: 638050 Tablet(s) PO TAKE ON E TABLET BY MOUTH EVERY DAY 04/13/2011 10/12/2011 Inactive gabapentin 800 mg Tab RxNorm: 166484 Tablet(s) PO TAKE ONE TABLET BY MOUTH EVERY DAY 04/13/2011 10/12/2011 Inactive Prevacid 30 mg Cap RxNorm: 335486 1 Capsule(s) PO QD 04/13/201110/11 Inactive Spiriva with HandiHaler 18 mcg & inhalation Caps RxNorm: 580 261 Capsule(s) INH INHALE CONTENTS OF 1 CAPSULE(S) WITH HANDIHALER ONCE DAILY 04/13/2011 12/21/2011 Inactive metformin ER 500 mg 24 hr Tab RxNorm: 880100 Tablet(s) PO TAKE ONE TABLET BY MOUTH EVERY DAY 04/13/2011 10/12/2011 Inactive Soma 350 mg Tab RxNorm: 765525 1 Tablet(s) PO QID 03/30/2011 02/13/20 19 Inactive fluoxetine 20 mg Cap RxNorm: 467413 Capsule(s) PO TAKE ONE CAPSULE BY MOUTH EVERY DAY 03/25/2011 10/12/2011 Inactive cefdinir 300 mg Cap RxNorm: 579036 2 Capsule(s) PO QD 03/19/201105/2011 Inactive 16.2 mg-0.1037 mg-0.0194 mg Tab RxNorm: 3545632 2 Tablet(s) PO TID PRN for gas and cramping 03/16/2011 07/13/2011 Inactive Soma 350 mg Tab RxNorm: 926382 2 Tablet(s) PO TID 03/16/2011 03/29/20 11 Inactive Chantix Starting Month Aníbal 0.5 mg (11)-1 mg (3x14) Tab s in a Dose Pack RxNorm: 700487 Tablet(s) PO as directed 03/02/2011 No Stop Date Active diazepam 10 mg Tab RxNorm: 616362 1 Tablet(s) PO BID 02/10/201101/19 Inactive Zofran 4 mg tablet RxNorm: 399013 1 Tablet(s) PO Q4H prn nausea 02/16/2011 Inactive Diflucan 100 mg Tab RxNorm: 889928 1 Tablet(s) PO QD 01/18/201101/24 Inactive Premarin 0.625 mg/g Vaginal Cream RxNorm: 270931 VAG In sert 1gm vaginally at bedtime 3 times weekly 01/18/2011 02/12/2019 Inactive loratadine 10 mg Tab RxNorm: 4100993 1 Tablet(s) PO QD 12/17/201003/2012 Inactive Spiriva with HandiHaler 18 mcg & inhalation Caps RxNorm: 580 261 1 Capsule(s) INH QD 12/17/2010 04/12/2011 Inactive Diflucan 100 mg Tab RxNorm: 509903 1 Tablet(s) PO QD 12/17/201012/23 Inactive diazepam 10 mg Tab RxNorm: 925845 1 Tablet(s) PO BID and PRN 201002/12/2019 Inactive One Touch Ultra Test Strips RxNorm: InVt BID Zainab t blood sugar at least twice daily. 11/11/2010 06/11/2011 Inactive fluoxetine 40 mg Cap RxNorm: 074196 1 Capsule(s) PO QAM 11/11/2010 Inactive diazepam 10 mg Tab RxNorm: 153552 1 Tablet(s) PO BID and PRN 200911/12/2010 Inactive Bactrim DS 800 mg-160 mg Tab RxNorm: 840908 1 Tablet(s) PO BID 09/2210/15/2010 Inactive fluoxetine 20 mg Cap RxNorm: 446335 1 Capsule(s) PO QD 10/02/201008/2011 Inactive Bactrim DS 800 mg-160 mg Tab RxNorm: 217421 1 Tablet(s) PO BID 01/201010/03/2010 Inactive Zofran 4 mg Tab RxNorm: 234508 1 Tablet(s) PO Q4H prn nausea 200910/16/2010 Inactive 16.2 mg-0.1037 mg-0.0194 mg Tab RxNorm: 3108746 2 Tablet(s) PO TID PRN for gas and cramping 09/17/2010 10/21/2010 Inactive Gabapentin 800 mg Tab RxNorm: 729419 1 Tablet(s) PO QD 09/16/2010 Inactive ProAir HFA 90 mcg/Actuation Aerosol Inhaler RxNorm: 842827 2 Puff(s) INH Q4H prn shortness of breath 09/15/2010 12/13/2010 Inactive gabapentin 800 mg Tab RxNorm: 775546 1 Tablet(s) PO QD 09/15/2010 Inactive Prevacid 30 mg Cap RxNorm: 961601 1 Capsule(s) PO QD 09/15/201004/12 Inactive loratadine 10 mg Tab RxNorm: 8277214 1 Tablet(s) PO QD 09/15/2010 Inactive Premarin 0.9 mg Tab RxNorm: 189243 1 Tablet(s) PO QD 09/15/201004/12 Inactive Synthroid 112 mcg Tab RxNorm: 136360 1 Tablet(s) PO QD 09/15/2010 Inactive metformin ER 500 mg 24 hr Tab RxNorm: 159780 1 Tablet(s) PO QD 08/2304/12/2011 Inactive Symbicort 160 mcg-4.5 mcg/Actuation Inhalation HFA Aer osol Inhaler RxNorm: 2093251 2 Puff(s) INH BID 09/15/2010 04/12/2011 Inactive diazepam 10 mg Tab RxNorm: 228131 1 Tablet(s) PO BID and PRN 200910/13/2010 Inactive Phentermine 37.5 mg Cap RxNorm: 323403 1 Capsule(s) PO QD 09/02/2010 11/02/2011 Inactive ProAir HFA 90 mcg/Actuation Aerosol Inhaler RxNorm: 305187 2 Puff(s) INH Q4H prn shortness of breath 08/07/2010 No Stop Date Active Premarin 0.9 mg Tab RxNorm: 324754 1 Tablet(s) PO QD 08/07/201009/14 Inactive Loratadine 10 mg Tab RxNorm: 9609217 1 Tablet(s) PO QD 08/07/2010 Inactive Lactulose 10 gram/15 mL Oral Soln RxNorm: 021485 1 Unit Dose PO QD 08/07/2010 02/12/2019 Inactive Zofran 4 mg Tab RxNorm: 222701 1 Tablet(s) PO Q4H prn nausea 2009 No Stop Date Active Gabapentin 800 mg Tab RxNorm: 800478 1 Tablet(s) PO QD 08/07/2010 Inactive Synthroid 112 mcg Tab RxNorm: 229132 1 Tablet(s) PO QD 08/07/2010 Inactive Metformin ER 500 mg 24 hr Tab RxNorm: 743597 1 Tablet(s) PO QD 07/2309/14/2010 Inactive Vitamin D 1,000 unit Tab RxNorm: 247177 1 Tablet(s) PO TID 08/07/2002/12/2019 Inactive Symbicort 160 mcg-4.5 mcg/Actuation Inhalation HFA Aer osol Inhaler RxNorm: 4374494 2 Puff(s) INH BID 08/07/2010 09/14/2010 Inactive Prevacid 30 mg Cap RxNorm: 806128 1 Capsule(s) PO QD 08/07/201009/14 Inactive Metformin ER 500 mg 24 hr Tab RxNorm: 434627 1 Tablet(s) PO QD 06/2308/06/2010 Inactive Vitamin D 1,000 unit Tab RxNorm: 903631 1 Tablet(s) PO TID 07/14/2008/06/2010 Inactive Synthroid 112 mcg Tab RxNorm: 191732 1 Tablet(s) PO QD 07/14/2010 Inactive Lactulose 10 gram/15 mL Oral Soln RxNorm: 603839 1 Unit Dose PO QD 07/14/2010 08/06/2010 Inactive Levaquin 500 mg Tab RxNorm: 815781 1 Tablet(s) PO QD 07/14/201007/27 Inactive Premarin 0.9 mg Tab RxNorm: 126152 1 Tablet(s) PO QD 07/14/201008/06 Inactive ProAir HFA 90 mcg/Actuation Aerosol Inhaler RxNorm: 994024 2 Puff(s) INH Q4H prn shortness of breath 07/14/2010 No Stop Date Active Prevacid 30 mg Cap RxNorm: 047575 1 Capsule(s) PO QD 07/14/201008/06 Inactive Zofran 4 mg Tab RxNorm: 513002 1 Tablet(s) PO Q4H prn nausea 2009 No Stop Date Active Symbicort 160 mcg-4.5 mcg/Actuation Inhalation HFA Aer osol Inhaler RxNorm: 9220853 2 Puff(s) INH BID 07/14/2010 08/06/2010 Inactive Loratadine 10 mg Tab RxNorm: 5181568 1 Tablet(s) PO QD 07/14/2010 Inactive Gabapentin 800 mg Tab RxNorm: 512242 1 Tablet(s) PO QD 07/14/2010 Inactive Metformin ER 500 mg 24 hr Tab RxNorm: 124396 1 Tablet(s) PO 010 07/13/2010 Inactive Diazepam 10 mg Tab RxNorm: 525138 1 Tablet(s) PO BID and PRN 200909/06/2010 Inactive Premarin 0.9 mg Tab RxNorm: 843833 1 Tablet(s) PO QD 06/09/201007/13 Inactive Zofran 4 mg Tab RxNorm: 804463 1 Tablet(s) PO Q4H prn nausea 2009 No Stop Date Active ProAir HFA 90 mcg/Actuation Aerosol Inhaler RxNorm: 571045 2 Puff(s) INH Q4H prn shortness of breath 06/09/2010 No Stop Date Active Gabapentin 800 mg Tab RxNorm: 330162 1 Tablet(s) PO QD 06/09/2010 Inactive Loratadine 10 mg Tab RxNorm: 5514445 1 Tablet(s) PO QD 06/09/2010 Inactive Lactulose 10 gram/15 mL Oral Soln RxNorm: 814145 1 Unit Dose PO QD 06/09/2010 07/13/2010 Inactive Prevacid 30 mg Cap RxNorm: 646839 1 Capsule(s) PO QD 06/09/201007/13 Inactive Synthroid 112 mcg Tab RxNorm: 677111 1 Tablet(s) PO QD 06/09/2010 Inactive Symbicort 160 mcg-4.5 mcg/Actuation Inhalation HFA Aer osol Inhaler RxNorm: 5922507 2 Puff(s) INH BID 06/09/2010 07/13/2010 Inactive Omnicef 300 mg Cap RxNorm: 202523 2 Capsule(s) PO QD 05/07/201005/20 Inactive Metformin 500 mg Tab RxNorm: 328155 1 Tablet(s) PO QD 05/06/201005/22 Inactive ProAir HFA 90 mcg/Actuation Aerosol Inhaler RxNorm: 308220 2 Puff(s) INH Q4H prn shortness of breath 05/06/2010 No Stop Date Active lactulose 10 gram/15 mL Oral Soln RxNorm: 268598 1 Unit Dose PO QD 05/06/2010 06/10/2011 Inactive Loratadine 10 mg Tab RxNorm: 2760447 1 Tablet(s) PO QD 05/06/2010 Inactive Synthroid 112 mcg Tab RxNorm: 413351 1 Tablet(s) PO QD 05/06/2010 Inactive Symbicort 160 mcg-4.5 mcg/Actuation Inhalation HFA Aer osol Inhaler RxNorm: 4389028 2 Puff(s) INH BID 05/06/2010 06/08/2010 Inactive Gabapentin 800 mg Tab RxNorm: 459549 1 Tablet(s) PO QD 05/06/2010 Inactive 16.2 mg-0.1037 mg-0.0194 mg Tab RxNorm: 1859579 2 Tablet(s) PO TID PRN for gas and cramping 05/06/2010 05/12/2010 Inactive Zofran 4 mg Tab RxNorm: 675920 1 Tablet(s) PO Q4H prn nausea 200904/13/2010 Inactive MS Contin 60 mg Tab RxNorm: 790879 3 Tablet(s) PO BID 04/09/201004/22 Inactive Soma 350 mg Tab RxNorm: 247362 2 Tablet(s) PO TID 04/09/2010 05/08/20 10 Inactive Symbicort 160 mcg-4.5 mcg/Actuation Inhalation HFA Aer osol Inhaler RxNorm: 2555964 2 Puff(s) INH BID 04/08/2010 05/05/2010 Inactive Doxycycline 100 mg Cap RxNorm: 0485974 1 Capsule(s) PO BID 04/08/20 10 04/17/2010 Inactive Triamterene-Hydrochlorothiazide 37.5 mg-25 mg Cap RxNorm: 19 8316 1 Capsule(s) PO QAM 04/08/2010 09/04/2010 Inactive fluoxetine 40 mg Cap RxNorm: 528275 1 Capsule(s) PO QAM 04/08/2010 Inactive Morphine SR 120 mg multiphase 24 hr Cap RxNorm: 176427 1 Capsul e(s) PO 03/11/2010 04/07/2010 Inactive Endocet 10 mg-325 mg Tab RxNorm: 8308563 1-2 Tablet(s) PO Q4H [place]IN 03/11/2010 04/09/2010 Inactive Savella 100 mg Tab RxNorm: 691107 1 Tablet(s) PO BID 03/10/201004/09 Inactive Soma 350 mg Tab RxNorm: 317546 1 Tablet(s) PO TID prn spasm 010 04/09/2010 Inactive Savella 100 mg Tab RxNorm: 944146 1 Tablet(s) PO BID 02/03/201004/09 Inactive Aspirin 81 mg Tab RxNorm: 116275 1 Tablet(s) PO QD No Start Date Active Zyrtec 10 mg Tab RxNorm: 0394828 1 Tablet(s) PO QD No Start Date Active One Touch Ultra Test Strips RxNorm: Misc test at least t wice daily. No Start Date Active coenzyme Q10 200 mg capsule RxNorm: 992761 1 Capsule(s) PO QD No Star t Date Active One Touch Ultra Test Strips RxNorm: InVt BID Zainab t blood sugar at least twice daily. No Start Date 11/10/2010 Inactive Gabapentin 800 mg Tab RxNorm: 381801 1 Tablet(s) PO QD No Start Date 05/05/2010 Inactive Abilify 5 mg tablet RxNorm: 981642 1 Tablet(s) PO QD No Start Date Inactive Chantix 1 mg Tab RxNorm: 539047 1 Tablet(s) PO BID No Start Date 10/22 Inactive Ozempic 0.25 mg or 0.5 mg (2 mg/1.5 mL) subcutaneous p en injector RxNorm: 6469634 .25 Milligram(s) SQ QW No Start Date 07/04/2019 Inactive lancets 28 gauge RxNorm: Miscellaneous As needed for blo od glucose sticks No Start Date 08/23/2013 Inactive potassium chloride ER 20 mEq tablet,extended release RxNorm: 198983 2 Tablet(s) PO QD No Start Date 09/26/2018 Inactive Ventolin HFA 90 mcg/actuation Aerosol Inhaler RxNorm: 324350 2 Puff(s) INH Q4H prn No Start Date 01/17/2012 Inactive potassium chloride ER 20 mEq tablet,extended release RxNorm: 279841 2 Tablet(s) PO QD No Start Date 10/19/2018 Inactive Januvia 100 mg tablet RxNorm: 984176 1 Tablet(s) PO QD No Start Date 09/10/2015 Inactive Medrol (Aníbal) 4 mg Tabs in a Dose Pack RxNorm: 709141 Tablet(s) PO N o Start Date 08/09/2011 Inactive as directed Zithromax Z-Aníbal 250 mg Tab RxNorm: 202051 Tablet(s) PO No Start Date 01/25/2012 Inactive as directed vitamin B6-vitamin E-magnesium tablet RxNorm: 1 Tablet(s ) PO QHS with INH No Start Date 03/30/2018 Inactive prednisone 20 mg Tab RxNorm: 806315 1 Tablet(s) PO TID for 1wk then 1 po BID for 1wk No Start Date 01/25/2012 Inactive furosemide 40 mg tablet RxNorm: 904599 1 Tablet(s) PO QAM No Start Date 10/09/2018 Inactive Vitamin D3 1000 units Capsule RxNorm: 1 Capsule(s) PO TID No S tart Date 03/19/2015 Inactive Zofran 4 mg Tab RxNorm: 621309 1 Tablet(s) PO Q4H prn nausea No Sta rt Date 04/13/2010 Inactive Premarin 0.625 mg/g Vaginal Cream RxNorm: 942365 1 Gram (s) VAG QHS 3 times a week No Start Date 09/22/2017 Inactive oxycodone 10 mg tablet RxNorm: 5194889 1-2 Tablet(s) PO QID as n eeded for pain No Start Date 11/04/2015 Inactive Nicoderm CQ 21 mg/24 hr daily Patch RxNorm: 066605 1 Applicatio n TD QD No Start Date 08/05/2015 Inactive Topamax 50 mg tablet RxNorm: 538145 1/2 Tablet(s) PO QH S for 1wk then 1 po q HS for 1wk then 2 po q HS No Start Date 06/27/2012 Inactive Chantix Starting Month Aníbal 0.5 mg (11)-1 mg (3x14) Tab s in a Dose Pack RxNorm: 509479 Tablet(s) PO as directed No Start Date 03/01/2011 Inactive Trulicity 0.75 mg/0.5 mL subcutaneous pen injector RxNorm: 1 310748 Milliliter(s) SQ No Start Date 07/04/2019 Inactive Medrol (Aníbal) 4 mg Tabs in a Dose Pack RxNorm: 465117 Tablet(s) PO N o Start Date 01/25/2012 Inactive as directed Duragesic 100 mcg/hr Transderm Patch RxNorm: 493310 2 A pplication TD Q48H for pain No Start Date 09/05/2013 Inactive Premarin 0.9 mg Tab RxNorm: 891289 1 Tablet(s) PO QD No Start Date Inactive Zithromax Z-Aníbal 250 mg Tab RxNorm: 193920 Tablet(s) PO as direc chinmay No Start Date 01/25/2012 Inactive ondansetron 8 mg disintegrating tablet RxNorm: 592964 1 Tablet(s) PO Q6H as needed No Start Date 10/10/2018 Inactive oxycodone 15 mg tablet RxNorm: 0643442 1 Tablet(s) PO QID as nee ded for pain No Start Date 03/05/2019 Inactive ProAir HFA 90 mcg/Actuation Aerosol Inhaler RxNorm: 686461 2 Puff(s) INH Q4H prn for wheezing or shortness of breath No Start Date 12/21/2011 Inactive pravastatin 40 mg tablet RxNorm: 994691 1/2 Tablet(s) PO QOD No Sta rt Date 04/09/2015 Inactive ipratropium-albuterol 0.5 mg-3 mg(2.5 mg base)/3 mL ne bulization soln RxNorm: 3728683 1 Unit Dose INH Q4H as needed No Start Date 09/09/2016 Inactive furosemide 40 mg tablet RxNorm: 546357 1 Tablet(s) PO QAM as ne eded No Start Date 09/24/2019 Inactive Vitamin D2 oral RxNorm: 4018 oral No Start Date 03/18/2015 Inacti ve pravastatin 40 mg tablet RxNorm: 094954 1/2 Tablet(s) PO QD No Star t Date 04/09/2015 Inactive ondansetron HCl 4 mg tablet RxNorm: 520840 1 Tablet(s) PO Q4H as needed for nausea and vomiting No Start Date 04/07/2016 Inactive furosemide 40 mg tablet RxNorm: 397383 2 Tablet(s) PO QAM No Start Date 09/26/2018 Inactive gabapentin 800 mg tablet RxNorm: 722170 1/2 Tablet(s) PO BID No Sta rt Date 06/21/2017 Inactive gabapentin 800 mg tablet RxNorm: 640331 1/2 Tablet(s) PO BID No Sta rt Date 07/05/2017 Inactive ProAir HFA 90 mcg/Actuation Aerosol Inhaler RxNorm: 499398 2 Puff(s) INH Q4H prn shortness of breath No Start Date 05/05/2010 Inactive scopolamine 1 mg over 3 days transdermal patch RxNorm: 07364 2 1 Application TD behind ear. Take off after three days No Start Date 10/10/2018 Inactive Metformin 500 mg Tab RxNorm: 686866 1 Tablet(s) PO QD No Start Date 0 05/05/2010 Inactive MS Contin 200 mg Tab RxNorm: 977020 1 Tablet(s) PO BID No Start Date 08/20/2011 Inactive Belladonna-Phenobarbital 48 mg tablet,extended release RxNor m: 2 Tablet(s) PO TID No Start Date 06/04/2016 Inactive Synthroid 112 mcg Tab RxNorm: 997493 1 Tablet(s) PO QD No Start Date 05/05/2010 Inactive Zegerid 40 mg-1.1 gram Cap RxNorm: 865922 1 Capsule(s) PO QD No Sta rt Date 01/25/2012 Inactive Premarin 0.625 mg/g Vaginal Cream RxNorm: 499201 VAG In sert 1gm vaginally at bedtime 3 times weekly No Start Date 01/17/2011 Inactive potassium chloride ER 20 mEq tablet,extended release RxNorm: 204460 1 Tablet(s) PO QD No Start Date 04/24/2019 Inactive methocarbamol 750 mg tablet RxNorm: 552836 2 Tablet(s) PO TID as needed for muscle spasm No Start Date 07/08/2014 Inactive Biaxin XL Aníbal 500 mg 24 hr Tab RxNorm: 376152 Tablet(s) PO as d irected No Start Date 04/24/2013 Inactive Vitamin D3 1,000 unit tablet RxNorm: 187988 3 Tablet(s) PO QD No St art Date 06/01/2017 Inactive Morphine SR 120 mg multiphase 24 hr Cap RxNorm: 565165 1 Capsul e(s) PO BID No Start Date 04/09/2010 Inactive Silvadene 1 % topical cream RxNorm: 476541 1 Application TOP BI D to burn area No Start Date 01/31/2017 Inactive Prednisone 20 mg Tab RxNorm: 972322 1 Tablet(s) PO TID for 3days then BID for 4days No Start Date 01/25/2012 Inactive gabapentin 600 mg tablet RxNorm: 420525 1 Tablet(s) PO BID No Start Date 01/21/2015 Inactive topiramate 50 mg tablet RxNorm: 602055 1 Tablet(s) PO QHS No Start Date 03/30/2018 Inactive Januvia 100 mg tablet RxNorm: 366935 1/2 Tablet(s) PO QD No Start D ate 12/25/2015 Inactive Diazepam 10 mg Tab RxNorm: 847494 1 Tablet(s) PO BID and PRN No Sta rt Date 06/08/2010 Inactive Medication Administered No Medication Administered data Immunizations Vaccine Codes Date Status Influenza CVX: 141 09/28/2012 Pneumovax Unknown 09/28/2012 Influenza (Adult) CVX: 141 09/02/2010 Results No Results data Procedures Procedure Codes Date THER/PROPH/DIAG INJ SC/IM CPT-4: 64124 07/10/2019 METHYLPREDNISOLONE INJECTION CPT-4: J2930 07/10/2019 URINALYSIS NONAUTO W/O SCOPE CPT-4: 33240 09/06/2018 URINE CULTURE/ COLONY COUNT CPT-4: 28600 09/06/2018 DRAIN/INJECT JOINT/BURSA CPT-4: 55397 04/29/2017 TRIAMCINOLONE ACET INJ NOS CPT-4: J3301 04/29/2017 DEXAMETHASONE SODIUM PHOS CPT-4: J1100 04/29/2017 INFLUENZA ASSAY W/OPTIC CPT-4: 38686 12/01/2016 RESPIRATORY CULTURE & STAIN CPT-4: 61913 07/09/2016 TB INTRADERMAL TEST CPT-4: 17372 04/21/2016 DRAIN/INJECT JOINT/BURSA CPT-4: 90177 11/07/2013 METHYLPREDNISOLONE 40 MG INJ CPT-4: J1030 11/07/2013 TRIAMCINOLONE ACET INJ NOS CPT-4: J3301 11/07/2013 DRAIN/INJECT JOINT/BURSA CPT-4: 18822 08/08/2013 METHYLPREDNISOLONE 40 MG INJ CPT-4: J1030 08/08/2013 TRIAMCINOLONE ACET INJ NOS CPT-4: J3301 08/08/2013 FLU VACCINE 3 YRS & > IM UP 64 CPT-4: 02140 2 PNEUMOCOCCAL VACC 23 ADITYA IM CPT-4: 57124 09/28/2012 IMMUNIZATION ADMIN CPT-4: 00024 09/28/2012 IMMUNIZATION ADMIN EACH ADD CPT-4: 74281 09/28/2012 FLU VACCINE 3 YRS & > IM UP 64 CPT-4: 69984 0 IMMUNIZATION ADMIN CPT-4: 43950 09/02/2010 METHYLPREDNISOLONE INJECTION CPT-4: J2930 05/07/2010 THER/PROPH/DIAG INJ SC/IM CPT-4: 01728 05/07/2010 Vital Signs Date Vital 11/29/2019 Blood [...] 1: 122/78 Code: 8480-6 BMI: 29.5 Code: 21852-0 Heart Rate 1: 76 bpm Height: 5'4" Respiratory Rate: 20 bpm SpO2: 96% Tempera ture: 37.0 (C) / 98.6 (F) Weight: 172 lbs 01/25/2019 Blood Pressure 1: 132/80 Code: 8480-6 BMI: 29.7 Code: 62061-4 Heart Rate 1: 84 bpm Height: 5'4" Respiratory Rate: 22 bpm SpO2: 98% Tempera ture: 36.9 (C) / 98.4 (F) Weight: 173 lbs 01/03/2019 Blood Pressure 1: 116/70 Code: 8480-6 BMI: 29.5 Code: 81331-3 Heart Rate 1: 92 bpm Height: 5'4" Respiratory Rate: 24 bpm SpO2: 98% Tempera ture: 37.2 (C) / 98.9 (F) Weight: 172 lbs 11/21/2018 Blood Pressure 1: 146/82 Code: 8480-6 BMI: 28.2 Code: 95005-3 Heart Rate 1: 88 bpm Height: 5'4" Respiratory Rate: 22 bpm SpO2: 97% Tempera ture: 36.9 (C) / 98.4 (F) Weight: 164 lbs 10/27/2018 Blood Pressure 1: 122/70 Code: 8480-6 BMI: 27.6 Code: 24914-5 Heart Rate 1: 88 bpm Height: 5'4" Respiratory Rate: 20 bpm SpO2: 96% Tempera ture: 36.8 (C) / 98.3 (F) Weight: 161 lbs 10/18/2018 Blood Pressure 1: 126/70 Code: 8480-6 BMI: 28.3 Code: 29067-4 Heart Rate 1: 76 bpm Height: 5'4" Respiratory Rate: 20 bpm SpO2: 95% Tempera ture: 37.0 (C) / 98.6 (F) Weight: 165 lbs 09/27/2018 Blood Pressure 1: 124/78 Code: 8480-6 BMI: 27.1 Code: 10075-9 Heart Rate 1: 88 bpm Height: 5'4" Respiratory Rate: 20 bpm SpO2: 98% Tempera ture: 36.4 (C) / 97.6 (F) Weight: 158 lbs 09/14/2018 Blood Pressure 1: 140/72 Code: 8480-6 BMI: 26.1 Code: 35165-1 Heart Rate 1: 100 bpm Height: 5'4" Respiratory Rate: 20 bpm SpO2: 97% Tempera ture: 36.9 (C) / 98.4 (F) Weight: 152 lbs 09/06/2018 Blood Pressure 1: 156/82 Code: 8480-6 BMI: 26.3 Code: 39360-5 Heart Rate 1: 100 bpm Height: 5'4" Respiratory Rate: 28 bpm SpO2: 95% Tempera ture: 37.2 (C) / 98.9 (F) Weight: 153 lbs 08/16/2018 Blood Pressure 1: 130/78 Code: 8480-6 Heart Rate 1: 87 bpm Respiratory Rate: 24 bpm SpO2: 94% Temperature: 36.9 (C) / 98.4 (F) We ight: 147 lbs 8 oz 07/07/2018 Blood Pressure 1: 116/78 Code: 8480-6 BMI: 22.7 Code: 93331-2 Heart Rate 1: 88 bpm Height: 5'4" Respiratory Rate: 22 bpm SpO2: 98% Tempera ture: 36.5 (C) / 97.7 (F) Weight: 132 lbs 05/31/2018 Blood Pressure 1: 128/78 Code: 8480-6 BMI: 22.3 Code: 60391-2 Heart Rate 1: 92 bpm Height: 5'4" Respiratory Rate: 26 bpm SpO2: 94% Tempera ture: 36.7 (C) / 98.1 (F) Weight: 130 lbs 03/31/2018 Blood Pressure 1: 136/78 Code: 8480-6 BMI: 21.5 Code: 22476-6 Heart Rate 1: 76 bpm Height: 5'4" Respiratory Rate: 24 bpm SpO2: 95% Tempera ture: 36.8 (C) / 98.3 (F) Weight: 125 lbs 01/26/2018 Blood Pressure 1: 142/64 Code: 8480-6 BMI: 20.6 Code: 03927-0 Heart Rate 1: 90 bpm Height: 5'4" Respiratory Rate: 24 bpm SpO2: 92% Tempera ture: 36.3 (C) / 97.3 (F) Weight: 120 lbs 10/26/2017 Blood Pressure 1: 124/70 Code: 8480-6 BMI: 20.3 Code: 88600-4 Heart Rate 1: 76 bpm Height: 5'4" Respiratory Rate: 22 bpm SpO2: 94% Tempera ture: 36.7 (C) / 98.1 (F) Weight: 118 lbs 09/23/2017 Blood Pressure 1: 106/70 Code: 8480-6 BMI: 19.2 Code: 14923-7 Heart Rate 1: 76 bpm Height: 5'4" Respiratory Rate: 20 bpm SpO2: 94% Tempera ture: 36.8 (C) / 98.3 (F) Weight: 112 lbs 08/12/2017 Blood Pressure 1: 116/68 Code: 8480-6 BMI: 20.1 Code: 82807-8 Heart Rate 1: 80 bpm Height: 5'4" Respiratory Rate: 22 bpm SpO2: 95% Tempera ture: 36.8 (C) / 98.2 (F) Weight: 117 lbs 07/06/2017 Blood Pressure 1: 136/78 Code: 8480-6 BMI: 20.6 Code: 84567-7 Heart Rate 1: 76 bpm Height: 5'4" Respiratory Rate: 24 bpm SpO2: 96% Tempera ture: 36.8 (C) / 98.2 (F) Weight: 120 lbs 06/02/2017 Blood Pressure 1: 112/70 Code: 8480-6 Heart Rate 1: 92 bpm Height: 5'4" Respiratory Rate: 24 bpm SpO2: 95% Temperature: 37.0 (C) / 98.6 (F) Weight: 04/29/2017 Blood Pressure 1: 94/52 Code: 8480-6 BMI: 19.6 C ode: 58154-9 Heart Rate 1: 84 bpm Height: 5'4" [...] 92/58 Code: 8480-6 BMI: 19.2 C ode: 96800-2 Heart Rate 1: 84 bpm Height: 5'4" Respiratory Rate: 26 bpm SpO2: 95% Tempera ture: 36.7 (C) / 98.0 (F) Weight: 112 lbs 12/01/2016 Blood Pressure 1: 114/70 Code: 8480-6 BMI: 19.2 Code: 70805-8 Heart Rate 1: 96 bpm Height: 5'4" Respiratory Rate: 28 bpm SpO2: 93% Tempera ture: 38.3 (C) / 101.0 (F) Weight: 112 lbs 10/27/2016 Blood Pressure 1: 126/66 Code: 8480-6 BMI: 19.6 Code: 07496-5 Heart Rate 1: 92 bpm Height: 5'4" Respiratory Rate: 28 bpm SpO2: 90% Tempera ture: 36.8 (C) / 98.3 (F) Weight: 114 lbs 09/09/2016 Blood Pressure 1: 126/74 Code: 8480-6 Heart Rate 1: 104 bpm Height: 5'4" Respiratory Rate: 32 bpm SpO2: 88% Temperature: 37 .2 (C) / 99.0 (F) 08/26/2016 Blood Pressure 1: 134/82 Code: 8480-6 BMI: 22.0 Code: 55004-5 Heart Rate 1: 84 bpm Height: 5'4" Respiratory Rate: 24 bpm SpO2: 94% Tempera ture: 36.8 (C) / 98.3 (F) Weight: 128 lbs 05/21/2016 Blood Pressure 1: 142/80 Code: 8480-6 BMI: 21.6 Code: 85928-1 Heart Rate 1: 104 bpm Height: 5'4" Respiratory Rate: 22 bpm SpO2: 93% Tempera ture: 36.0 (C) / 96.8 (F) Weight: 126 lbs 03/25/2016 Blood Pressure 1: 126/62 Code: 8480-6 Heart Rate 1: 88 bpm Respiratory Rate: 20 bpm SpO2: 92% Temperature: 36.8 (C) / 98.3 (F) We ight: 130 lbs 01/23/2016 Blood Pressure 1: 146/82 Code: 8480-6 BMI: 24.1 Code: 83575-0 Heart Rate 1: 92 bpm Height: 5'3" Respiratory Rate: 22 bpm Temperature: 37 .1 (C) / 98.8 (F) Weight: 136 lbs 12/26/2015 Blood Pressure 1: 142/78 Code: 8480-6 BMI: 24.6 Code: 49967-3 Heart Rate 1: 78 bpm Height: 5'3" Respiratory Rate: 20 bpm Temperature: 36 .7 (C) / 98.1 (F) Weight: 139 lbs 12/03/2015 Blood Pressure 1: 126/60 Code: 8480-6 BMI: 24.6 Code: 84177-6 Heart Rate 1: 100 bpm Height: 5'3" Respiratory Rate: 28 bpm Temperature: 37 .6 (C) / 99.6 (F) Weight: 139 lbs 09/10/2015 Blood Pressure 1: 124/64 Code: 8480-6 BMI: 23.7 Code: 66206-0 Heart Rate 1: 88 bpm Height: 5'3" Respiratory Rate: 24 bpm SpO2: 95% Tempera ture: 36.4 (C) / 97.6 (F) Weight: 134 lbs 08/06/2015 Blood Pressure 1: 114/76 Code: 8480-6 BMI: 23.2 Code: 29692-3 Heart Rate 1: 88 bpm Height: 5'3" Respiratory Rate: 22 bpm Temperature: 36 .6 (C) / 97.9 (F) Weight: 131 lbs 07/18/2015 Blood Pressure 1: 144/78 Code: 8480-6 BMI: 23.7 Code: 59942-3 Heart Rate 1: 84 bpm Height: 5'3" Respiratory Rate: 20 bpm Temperature: 37 .2 (C) / 99.0 (F) Weight: 134 lbs 04/10/2015 Blood Pressure 1: 110/64 Code: 8480-6 Heart Rate 1: 80 bpm Height: Respiratory Rate: 20 bpm Temperature: 37.1 (C) / 98.8 (F) Weight: 03/05/2015 Blood Pressure 1: 136/80 Code: 8480-6 BMI: 23.9 Code: 00208-1 Heart Rate 1: 76 bpm Height: 5'3" Respiratory Rate: 24 bpm Temperature: 37 .0 (C) / 98.6 (F) Weight: 135 lbs 01/30/2015 Blood Pressure 1: 142/80 Code: 8480-6 BMI: 23.0 Code: 61587-2 Heart Rate 1: 96 bpm Height: 5'3" Respiratory Rate: 22 bpm Temperature: 36 .2 (C) / 97.2 (F) Weight: 130 lbs 01/02/2015 Blood Pressure 1: 124/70 Code: 8480-6 BMI: 23.4 Code: 95629-5 Heart Rate 1: 84 bpm Height: 5'3" Respiratory Rate: 24 bpm SpO2: 95% Tempera ture: 36.9 (C) / 98.5 (F) Weight: 132 lbs 10/03/2014 Blood Pressure 1: 106/68 Code: 8480-6 BMI: 22.5 Code: 09405-0 Heart Rate 1: 88 bpm Height: 5'3" Respiratory Rate: 24 bpm Temperature: 37 .0 (C) / 98.6 (F) Weight: 127 lbs 08/27/2014 Blood Pressure 1: 12468 Code: 8480-6 BMI: 21.1 Code: 32480-2 Heart Rate 1: 88 bpm Height: 5'3" [...] 1: 120/70 Code: 8480-6 BMI: 19.2 Code: 39335-3 Heart Rate 1: 70 bpm Height: 5'4" Respiratory Rate: 20 bpm Temperature: 36 .9 (C) / 98.4 (F) Weight: 112 lbs 06/28/2013 Blood Pressure 1: 102/68 Code: 8480-6 BMI: 19.6 Code: 57523-8 Heart Rate 1: 76 bpm Height: 5'4" Respiratory Rate: 20 bpm Temperature: 36 .8 (C) / 98.2 (F) Weight: 114 lbs 05/31/2013 Blood Pressure 1: 106/70 Code: 8480-6 BMI: 18.9 Code: 55445-8 Heart Rate 1: 100 bpm Height: 5'4" Respiratory Rate: 20 bpm Temperature: 36 .4 (C) / 97.6 (F) Weight: 110 lbs 05/03/2013 Blood Pressure 1: 126/70 Code: 8480-6 BMI: 19.1 Code: 43884-2 Heart Rate 1: 88 bpm Height: 5'4" Respiratory Rate: 20 bpm Temperature: 37 .1 (C) / 98.8 (F) Weight: 111 lbs 04/25/2013 Blood Pressure 1: 114/68 Code: 8480-6 BMI: 19.4 Code: 20387-6 Heart Rate 1: 92 bpm Height: 5'4" Respiratory Rate: 24 bpm SpO2: 96% Tempera ture: 37.7 (C) / 99.8 (F) Weight: 113 lbs 03/08/2013 Blood Pressure 1: 94/68 Code: 8480-6 BMI: 21.3 C ode: 32423-2 Heart Rate 1: 88 bpm Height: 5'4" Respiratory Rate: 24 bpm Temperature: 37 .0 (C) / 98.6 (F) Weight: 124 lbs 02/07/2013 Blood Pressure 1: 106/64 Code: 8480-6 BMI: 21.8 Code: 59711-8 Heart Rate 1: 84 bpm Height: 5'4" Respiratory Rate: 22 bpm Temperature: 36 .8 (C) / 98.2 (F) Weight: 127 lbs 01/10/2013 Blood Pressure 1: 122/68 Code: 8480-6 BMI: 21.6 Code: 84546-1 Heart Rate 1: 94 bpm Height: 5'4" SpO2: 94% Temperature: 36.7 (C) / 98.1 (F) Weight: 126 lbs 09/28/2012 Blood Pressure 1: 124/78 Code: 8480-6 BMI: 24.9 Code: 64926-1 Heart Rate 1: 92 bpm Height: 5'4" Respiratory Rate: 20 bpm Temperature: 36 .7 (C) / 98.1 (F) Weight: 145 lbs 06/28/2012 Blood Pressure 1: 134/80 Code: 8480-6 BMI: 24.9 Code: 82899-3 Heart Rate 1: 76 bpm Height: 5'4" Respiratory Rate: 20 bpm Temperature: 36 .8 (C) / 98.2 (F) Weight: 145 lbs 05/03/2012 Blood Pressure 1: 108/62 Code: 8480-6 BMI: 25.6 Code: 80845-0 Heart Rate 1: 88 bpm Height: 5'4"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 Education: Patient Medication Summary Completed 03/19/2011 Visit Plan: Repeat Biaxin XL Cont curren t meds Repeat Chantix 01/28/2011 Appointment: Vika Renteria WPtel: [address] [place] [address] FOLLOW UP 01/28/2011 Patient Education: Patient Medication Summary Completed 01/28/2011 Patient Education: Chantix Unbranded Comp leted 01/28/2011 Appointment: Vika Renteria WPtel: [address] [place], [place] [phone] FOLLOW UP 01/14/2011 Visit Plan: Finish abx Diflucan for vagi nitis Premarin vaginal cream Smoking cessation 12/17/2010 Appointment: Vika Renteria WPtel: [address] [place], [place] [phone] [facility] Follow Up 12/17/2010 Patient Education: Patient Medication Summary Completed 12/17/2010 Appointment: Vika Renteria WPtel: [address] [place], [place] [phone] FOLLOW UP 11/06/2010 Visit Plan: Start PT Use SVNs every 4hrs Smoking Cessation Change MS Contin to 200mg q 12hrs 2010 Appointment: Vika Renteria WPtel: [address] [place], [place] [phone] FOLLOW UP 2010 Patient Education: Patient Medication Summary Completed 2010 Visit Plan: Prednisone taper for pain an d lungs 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 Increase fluoxetine to 60mg QD for acute stress reaction 10/02/2010 Appointment: Vika Renteria WPtel: [address] [place], [place] [phone] FOLLOW UP 10/02/2010 Patient Education: Patient Medication Summary Completed 10/02/2010 Visit Plan: Check CT Head, Cervical, Tho racic, and Lumbar Spine Cont current meds Bactrim for left toe 09/24/2010 Appointment: Vika Renteria WPtel: [address] [place], [place] [phone] CHECK UP 09/24/2010 Patient Education: Patient Medication Summary Completed 09/24/2010 Appointment: Vika Renteria WPtel: [address] [place], [place] [phone] FOLLOW UP 09/02/2010 Patient Education: Patient Medication Summary Completed 09/02/2010 Visit Plan: Return for 2nd epidural Obse rve right leg lesion Cont Symbicort and Spiriva 07/14/2010 Appointment: Vika Renteria WPtel: [address] [place] [address] FOLLOW UP 07/14/2010 Patient Education: Patient Medication Summary Completed 07/14/2010 Appointment: Vika Renteria WPtel: [address] [place] [address] FOLLOW UP 05/27/2010 Appointment: Vika Renteria WPtel: [address] [place] [address] FOLLOW UP 05/14/2010 Visit Plan: SVN with Albuterol 0.083% Q4 hrs and Q2hrs prn. Restart Spiriva Smoking Cessation 05/07/2010 Appointment: Vika Renteria WPtel: [address] [place] [address] FOLLOW UP 05/07/2010 Patient Education: Patient Medication Summary Completed 05/07/2010 Appointment: Vika Renteria WPtel: [address] [place] [address] ACUTE ILLNESS 04/08/2010 Patient Education: Patient Medication Summary Completed 04/08/2010 Referral: Kyle Billings WPtel: [phone] [address] [place] Referral Completed Referral: Jaylan Matute WPtel: [address] [facility] [address] [id number] [place] Referral Initiated Referral: Kyle Billings WPtel: [phone] [address] [place] Referral Appointment Requested Instructions Comment . Supportive care. Rest, Fluids, Tyleno l/Motrin prn fever or bodyaches. Notify if worsening symptoms.New toothebrush in 5 days . Recommend direct admit to hospital--consuelo farfan refuses--even though told she is high risk for respiratory failure and even Doxycycline 100mg po BID and Levaquin 750mg po daily for 7 days--start tonight To ER alie if worsening Recheck tomorrow . Patient states [...] prn breakthrough pain . Discussed that some [employer] produc ts are petroleum free If [...]
--- OUTSIDE RECORDS SUMMARY | 2020-04-24 22:17 | XMS REPORT | CCD ---
Author Author Yana Renteria D.O. 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 Name Role Phone Vika Renteria D.O., PP Unavailable CCM Unavailable Summary Purpose Interface Exchange Insurance Providers Payer name Policy type / Coverage type Covered constitution party ID Effective Begin Date Effective End Date [employer] [facility] Medicaid [id number] 2018 U nknown Family History Family History data not found Social History Social History Element Codes Description Effective Dates Marital status Unknown 06/28/[address]: [id number] Currently smokes tobacco 05/2013 Allergies, Adverse Reactions, [...] Start Date Stop Date Status Fill Instructions Relistor 150 mg tablet RxNorm: 5675539 TAKE THREE TABLETS BY BENOIT TH DAILY 03/13/2020 No Stop Date Active cyclobenzaprine 10 mg tablet RxNorm: 252468 TAKE ONE TA BLET BY MOUTH THREE TIMES A DAY NEEDED 03/13/2020 No Stop Date Active furosemide 40 mg tablet RxNorm: 874782 TAKE ONE TABLET BY MOUTH EVERY MORNING 03/13/2020 No Stop Date Active hydroxyzine HCl 50 mg tablet RxNorm: 294589 1 Tablet(s) Oral two times a day to take with morphine--replaces benadryl 03/12/2020 04/11/2020 Active prednisone 1 mg tablet RxNorm: 224954 1 Tablet(s) Oral two times a day to take with hydroxyzine 03/12/2020 No Stop Date Active prednisolone 5 mg tablet RxNorm: 432347 1 Tablet(s) Oral two ti mes a day 02/22/2020 03/23/2020 Active prednisolone 5 mg tablet RxNorm: 771153 1 Tablet(s) Oral two ti mes a day 02/22/2020 02/21/2020 Inactive Symbicort 160 mcg-4.5 mcg/actuation HFA aerosol inhaler RxNo rm: 3975558 INHALE TWO PUFFS BY MOUTH TWICE A DAY 02/19/2020 No Stop Date Active Daliresp 500 mcg tablet RxNorm: 1079388 TAKE ONE TABLET BY MOUTH DAILY 02/19/2020 No Stop Date Active prednisone 20 mg tablet RxNorm: 089504 1 Tablet(s) Oral two yumi es a day 02/13/2020 02/20/2020 Inactive oxycodone 30 mg tablet RxNorm: 1925005 1 Tablet(s) Oral four times a day replaces MS Contin 02/13/2020 02/22/2020 Inactive levothyroxine 25 mcg tablet RxNorm: 140104 TAKE ONE TAB LET BY MOUTH EVERY MORNING 02/09/2020 No Stop Date Active MS Contin 200 mg tablet,extended release RxNorm: 354946 1 Tablet(s) Oral two times a day 02/01/2020 03/01/2020 Inactive Premarin 0.45 mg tablet RxNorm: 194408 TAKE ONE TABLET BY MOUTH DAILY 01/31/2020 No Stop Date Active metformin 500 mg tablet RxNorm: 625161 1 Tablet(s) Oral QD 01/31/20 20 04/29/2020 Active cyclobenzaprine 10 mg tablet RxNorm: 849441 TAKE ONE TA BLET BY MOUTH THREE TIMES A DAY NEEDED 01/31/2020 03/12/2020 Inactive gabapentin 300 mg capsule RxNorm: 042578 TAKE ONE CAPSULE BY [facility] TWICE A DAY 01/16/2020 No Stop Date Active potassium chloride ER 20 mEq tablet,extended release RxNorm: 935552 TAKE ONE TABLET BY MOUTH DAILY 01/08/2020 07/05/2020 Active ProAir HFA 90 mcg/actuation aerosol inhaler RxNorm: 228643 INHALE ONE PUFF BY MOUTH EVERY 4 HOURS FOR WHEEZING OR FOR SHORTNESS OF BREATH 01/04/2020 No Stop Date Active metformin 500 mg tablet RxNorm: 621578 1 Tablet(s) Oral QD 01/04/20 20 01/30/2020 Inactive MS Contin 200 mg tablet,extended release RxNorm: 151585 1 Tablet(s) Oral two times a day 01/02/2020 01/31/2020 Inactive Pulmicort 1 mg/2 mL suspension for nebulization RxNorm: 6168 19 USE ONE VIAL VIA NEBULIZER BY MOUTH TWICE A DAY 12/21/2019 No Stop Date Active furosemide 40 mg tablet RxNorm: 255183 TAKE ONE TABLET BY MOUTH EVERY MORNING NEEDED 12/20/2019 03/12/2020 Inactive levothyroxine 25 mcg tablet RxNorm: 179059 TAKE ONE TAB LET BY MOUTH EVERY MORNING 12/20/2019 02/08/2020 Inactive MS Contin 200 mg tablet,extended release RxNorm: 874006 1 Tablet(s) Oral two times a day 12/05/2019 01/01/2020 Inactive Medrol (Aníbal) 4 mg tablets in a dose pack RxNorm: 968360 6 Tablet(s) Oral QD --then as directed 11/30/2019 12/05/2019 Inactive MS Contin 200 mg tablet,extended release RxNorm: 986709 1 Tablet(s) Oral two times a day 11/29/2019 12/04/2019 Inactive cyclobenzaprine 10 mg tablet RxNorm: 422249 TAKE ONE TA BLET BY MOUTH THREE TIMES A DAY NEEDED 11/21/2019 01/30/2020 Inactive MS Contin 200 mg tablet,extended release RxNorm: 593817 1 Tablet(s) Oral two times a day replaces 100mg dose 11/03/2019 11/02/2019 Inactive MS Contin 200 mg tablet,extended release RxNorm: 801523 1 Tablet(s) Oral two times a day replaces 100mg dose 11/03/2019 11/29/2019 Inactive ferrous sulfate 325 mg (65 mg iron) tablet RxNorm: 684752 1 Tab let(s) Oral QD 10/30/2019 No Stop Date Active MS Contin 100 mg tablet,extended release RxNorm: 575364 1 Table t(s) Oral QD 10/30/2019 10/29/2019 Inactive MS Contin 100 mg tablet,extended release RxNorm: 172855 1 Table t(s) Oral QD 10/30/2019 11/02/2019 Inactive pantoprazole 40 mg tablet,delayed release RxNorm: 859849 1 Tabl et(s) Oral QD 10/25/2019 No Stop Date Active Minipress 2 mg capsule RxNorm: 673688 1 Capsule(s) Oral QAM and 3 at bedtime 10/25/2019 No Stop Date Active Lancets, Super Thin RxNorm: 1 Unit Dose Miscellaneous QD 9 11/27/2020 Active Cymbalta 60 mg capsule,delayed release RxNorm: 635949 1 Capsule (s) Oral QAM 10/25/2019 No Stop Date Active Cymbalta 30 mg capsule,delayed release RxNorm: 308674 1 Capsule (s) Oral QAM 10/25/2019 No Stop Date Active Relistor 150 mg tablet RxNorm: 3817955 TAKE THREE TABLETS BY BENOIT TH DAILY 10/25/2019 03/12/2020 Inactive oxycodone 15 mg tablet RxNorm: 8840250 1 Tablet(s) Oral four times a day as needed for pain 10/25/2019 11/28/2019 Inactive metformin 500 mg tablet RxNorm: 587142 1 Tablet(s) Oral QD 10/25/20 19 01/03/2020 Inactive levothyroxine 25 mcg tablet RxNorm: 600665 1 Tablet(s) Oral QAM 02/201912/19/2019 Inactive levothyroxine 25 mcg tablet RxNorm: 741253 1 Tablet(s) Oral QAM 02/201910/24/2019 Inactive MS Contin 100 mg tablet,extended release RxNorm: 179141 1 Tablet(s) Oral two times a day replaces fentanyl 10/25/2019 10/25/2019 Inactive Premarin 0.45 mg tablet RxNorm: 795828 TAKE ONE TABLET BY MOUTH DAILY 10/24/2019 01/30/2020 Inactive Duragesic 100 mcg/hr transdermal patch RxNorm: 375317 2 Application TD Q48H for pain 10/18/2019 10/24/2019 Inactive gabapentin 300 mg capsule RxNorm: 022554 TAKE ONE CAPSULE BY MO UTH TWICE A DAY 10/16/2019 01/15/2020 Inactive cyclobenzaprine 10 mg tablet RxNorm: 734844 TAKE ONE TA BLET BY MOUTH THREE TIMES A DAY NEEDED 09/27/2019 11/20/2019 Inactive Relistor 150 mg tablet RxNorm: 3739989 TAKE THREE TABLETS BY BENOIT TH DAILY 09/25/2019 10/24/2019 Inactive ProAir HFA 90 mcg/actuation aerosol inhaler RxNorm: 183518 INHALE ONE PUFF BY MOUTH EVERY 4 HOURS FOR WHEEZING OR FOR SHORTNESS OF BREATH 09/25/2019 01/03/2020 Inactive furosemide 40 mg tablet RxNorm: 469338 1 Tablet(s) Oral QAM as needed 09/25/2019 09/25/2019 Inactive oxycodone 15 mg tablet RxNorm: 6286935 1 Tablet(s) PO QID as nee ded for pain 09/21/2019 10/24/2019 Inactive Duragesic 100 mcg/hr transdermal patch RxNorm: 251365 2 Application TD Q48H for pain 09/19/2019 10/17/2019 Inactive Daliresp 500 mcg tablet RxNorm: 7563873 1 Tablet(s) Oral QD 019 02/18/2020 Inactive Relistor 150 mg tablet RxNorm: 7263367 TAKE THREE TABLETS BY BENOIT TH DAILY 07/25/2019 07/30/2019 Inactive cyclobenzaprine 10 mg tablet RxNorm: 289067 TAKE ONE TA BLET BY MOUTH THREE TIMES A DAY NEEDED 07/25/2019 09/22/2019 Inactive potassium chloride ER 20 mEq tablet,extended release RxNorm: 048358 TAKE ONE TABLET BY MOUTH DAILY 07/25/2019 01/07/2020 Inactive fluoxetine 40 mg capsule RxNorm: 443875 TAKE ONE CAPSULE BY BENOIT TH EVERY MORNING 07/11/2019 10/24/2019 Inactive Medrol (Aníbal) 4 mg tablets in a dose pack RxNorm: 669595 6 Tablet(s) PO QD --then as directed 07/10/2019 07/15/2019 Inactive omeprazole 40 mg capsule,delayed release RxNorm: 783490 1 Capsule(s) PO QD for stomach TAKE ONE CAPSULE BY MOUTH DAILY 07/10/2019 10/24/2019 Inactive Augmentin 875 mg-125 mg tablet RxNorm: 288765 1 Tablet(s) PO BID 07/16/2019 Inactive Trulicity 0.75 mg/0.5 mL subcutaneous pen injector RxNorm: 1 730847 0.75 Milliliter(s) SQ weekly 07/05/2019 10/24/2019 Inactive Compazine 10 mg tablet RxNorm: 243680 TAKE ONE TABLET B Y MOUTH FOUR TIMES A DAY NEEDED FOR NAUSEA 06/20/2019 07/19/2019 Inactive ProAir HFA 90 mcg/actuation aerosol inhaler RxNorm: 988366 INHALE ONE PUFF BY MOUTH EVERY 4 HOURS FOR WHEEZING OR FOR SHORTNESS OF BREATH 06/20/2019 06/23/2019 Inactive Daliresp 500 mcg tablet RxNorm: 0071052 TAKE ONE TABLET BY MOUTH DAILY 06/12/2019 09/10/2019 Inactive oinufshx-jnvvixqgt-havpesqkq 3.5 mg/mL-10,000 unit/mL- 1 % ear solution RxNorm: 113726 4 Drop(s) otic (ear) TID to left ear 06/05/2019 10/24/2019 Inac tive furosemide 40 mg tablet RxNorm: 421395 TAKE ONE TABLET BY MOUTH EVERY MORNING 05/26/2019 07/09/2019 Inactive Duragesic 100 mcg/hr transdermal patch RxNorm: 024563 2 Application TD Q48H for pain 05/16/2019 06/14/2019 Inactive oxycodone 15 mg tablet RxNorm: 8215817 1 Tablet(s) PO QID as nee ded for pain 05/10/2019 09/20/2019 Inactive doxycycline hyclate 100 mg capsule RxNorm: 8701407 1 Capsule(s) PO BID 05/03/2019 05/12/2019 Inactive prednisone 20 mg tablet RxNorm: 804557 1 Tablet(s) PO T ID for 3 days then 1 po BID for 3 days then one daily for 3 days 05/03/2019 07/11/2019 Inactiv e Ozempic 0.25 mg or 0.5 mg (2 mg/1.5 mL) subcutaneous p en injector RxNorm: 1512231 0.5 Milligram(s) SQ QW 05/03/2019 07/09/2019 Inactive fluconazole 100 mg tablet RxNorm: 514485 1 Tablet(s) PO QD 05/03/2005/07/2019 Inactive Premarin 0.45 mg tablet RxNorm: 184054 TAKE ONE TABLET BY MOUTH DAILY 05/03/2019 10/23/2019 Inactive potassium chloride ER 20 mEq tablet,extended release RxNorm: 418416 1 Tablet(s) PO QD 04/27/2019 07/25/2019 Inactive potassium chloride ER 20 mEq tablet,extended release RxNorm: 498258 1 Tablet(s) PO QD 04/25/2019 04/26/2019 Inactive Compazine 10 mg tablet RxNorm: 539994 1 Tablet(s) PO QID as nee ded for nausea 04/25/2019 05/04/2019 Inactive ProAir HFA 90 mcg/actuation aerosol inhaler RxNorm: 383294 INHALE ONE PUFF BY MOUTH EVERY 4 HOURS FOR WHEEZING OR FOR SHORTNESS OF BREATH 04/12/2019 06/10/2019 Inactive Medrol (Aníbal) 4 mg tablets in a dose pack RxNorm: 856375 6 Tablet(s) PO QD --then as directed 04/11/2019 04/16/2019 Inactive Symbicort 160 mcg-4.5 mcg/actuation HFA aerosol inhaler RxNo rm: 8417558 2 Puff(s) INH BID 04/10/2019 10/06/2019 Inactive levothyroxine 50 mcg tablet RxNorm: 150070 1 Tablet(s) PO QD 201810/24/2019 Inactive gabapentin 300 mg capsule RxNorm: 742146 1 Capsule(s) PO BID 201810/02/2019 Inactive Symbicort 160 mcg-4.5 mcg/actuation HFA aerosol inhaler RxNo rm: 4049989 2 Puff(s) INH BID 04/06/2019 04/09/2019 Inactive oxycodone 15 mg tablet RxNorm: 9401034 1 Tablet(s) PO QID as nee ded for pain 04/05/2019 05/09/2019 Inactive levothyroxine 50 mcg tablet RxNorm: 702837 1 Tablet(s) PO QD 201804/09/2019 Inactive furosemide 40 mg tablet RxNorm: 972596 TAKE ONE TABLET BY MOUTH EVERY MORNING 03/21/2019 04/19/2019 Inactive levothyroxine 50 mcg tablet RxNorm: 597221 TAKE ONE TABLET BY M OUTH DAILY 03/21/2019 03/27/2019 Inactive Duragesic 100 mcg/hr transdermal patch RxNorm: 147335 2 Application TD Q48H for pain 03/13/2019 04/11/2019 Inactive oxycodone 15 mg tablet RxNorm: 9888834 1 Tablet(s) PO QID as nee ded for pain 03/06/2019 04/04/2019 Inactive Relistor 150 mg tablet RxNorm: 6899483 3 Tablet(s) PO QD 02/28/2019 0 05/28/2019 Inactive cyclobenzaprine 10 mg tablet RxNorm: 039803 1 Tablet(s) PO TID as needed 02/28/2019 05/28/2019 Inactive phentermine 37.5 mg tablet RxNorm: 937755 1 Tablet(s) PO QAM 201803/15/2019 Inactive Duragesic 100 mcg/hr transdermal patch RxNorm: 081428 2 Application TD Q48H for pain 02/09/2019 03/10/2019 Inactive Daliresp 500 mcg tablet RxNorm: 9181042 TAKE ONE TABLET BY MOUTH DAILY 01/31/2019 05/30/2019 Inactive Premarin 0.45 mg tablet RxNorm: 619958 1 Tablet(s) PO QD 01/31/2019 0 04/30/2019 Inactive fluoxetine 40 mg capsule RxNorm: 984058 Capsule(s) TAKE ONE CAPSULE BY MOUTH EVERY MORNING 01/31/2019 04/30/2019 Inactive levothyroxine 50 mcg tablet RxNorm: 847394 1 Tablet(s) PO QD 201804/10/2019 Inactive follow up in 3 weeks levothyroxine 50 mcg tablet RxNorm: 854351 1 Tablet(s) PO QD 201801/25/2019 Inactive follow up in 3 weeks potassium chloride ER 20 mEq tablet,extended release RxNorm: 352743 2 Tablet(s) PO BID 01/23/2019 01/08/2020 Inactive Synthroid 50 mcg tablet RxNorm: 325490 TAKE ONE TABLET BY MOUTH DAILY 01/16/2019 10/24/2019 Inactive potassium chloride ER 20 mEq tablet,extended release RxNorm: 435341 2 Tablet(s) PO BID 01/04/2019 01/22/2019 Inactive ProAir HFA 90 mcg/actuation aerosol inhaler RxNorm: 981059 INHALE ONE PUFF BY MOUTH EVERY 4 HOURS FOR WHEEZING OR SHORTNESS OF BREATH 01/04/201902/20 Inactive Request already responded to by other me ans (e.g. phone or fax) ProAir HFA 90 mcg/actuation aerosol inhaler RxNorm: 7298863 INHALE ONE PUFF BY MOUTH EVERY 4 HOURS FOR WHEEZING OR SHORTNESS OF BREATH 01/02/201912/23 Inactive gabapentin 300 mg capsule RxNorm: 387954 TAKE ONE CAPSULE BY MO UTH TWICE A DAY 12/30/2018 04/06/2019 Inactive furosemide 40 mg tablet RxNorm: 662887 1 Tablet(s) PO QAM 12/26/2018 02/23/2019 Inactive Compazine 10 mg tablet RxNorm: 278401 1 Tablet(s) PO QID as nee ded for nausea 12/07/2018 12/16/2018 Inactive metolazone 2.5 mg tablet RxNorm: 902940 TAKE ONE TABLET BY MOUT H EVERY MORNING 12/05/2018 01/03/2019 Inactive metformin ER 500 mg tablet,extended release 24 hr RxNorm: 86 0975 TAKE ONE TABLET BY MOUTH DAILY 12/05/2018 01/31/2020 Inactive Synthroid 50 mcg tablet RxNorm: 542543 1 Tablet(s) PO QD 11/25/2018 0 01/03/2019 Inactive DC any other synthroid strengths. Should be 50mcg only cyclobenzaprine 10 mg tablet RxNorm: 270800 TAKE ONE TA BLET BY MOUTH THREE TIMES A DAY NEEDED 11/09/2018 02/06/2019 Inactive metolazone 2.5 mg tablet RxNorm: 586850 1 Tablet(s) PO QAM repl aces 5mg dose 11/02/2018 12/01/2018 Inactive potassium chloride ER 20 mEq tablet,extended release RxNorm: 400840 2 Tablet(s) PO QD 2018 01/02/2019 Inactive Compazine 10 mg tablet RxNorm: 984467 1 Tablet(s) PO QID as nee ded for nausea 10/18/2018 12/07/2018 Inactive furosemide 40 mg tablet RxNorm: 526124 1 Tablet(s) PO QAM 10/12/2018 12/10/2018 Inactive ondansetron 8 mg disintegrating tablet RxNorm: 732935 1 Tablet(s) PO Q6H as needed 10/11/2018 10/17/2018 Inactive scopolamine 1 mg over 3 days transdermal patch RxNorm: 14268 2 1 Application TD behind ear. Take off after three days 10/11/2018 01/02/2019 Inactive furosemide 40 mg tablet RxNorm: 684590 1 Tablet(s) PO QAM 10/10/2018 12/26/2018 Inactive metolazone 5 mg tablet RxNorm: 436201 1 Tablet(s) PO QAM 10/06/2018 1 01/03/2018 Inactive metolazone 5 mg tablet RxNorm: 672756 1 Tablet(s) PO QAM 10/06/2018 1 12/05/2017 Inactive Xtampza ER 36 mg capsule sprinkle RxNorm: 3415963 1 Capsule(s) P O BID 10/05/2018 01/02/2019 Inactive Xtampza ER 36 mg capsule sprinkle RxNorm: 8698000 1 Capsule(s) P O BID 10/05/2018 02/12/2019 Inactive omeprazole 40 mg capsule,delayed release RxNorm: 961232 TAKE ONE CAPSULE BY MOUTH DAILY 10/03/2018 12/31/2018 Inactive Duragesic 100 mcg/hr transdermal patch RxNorm: 834618 2 Application TD Q48H for pain 09/30/2018 10/29/2018 Inactive Synthroid 50 mcg tablet RxNorm: 526647 1 Tablet(s) PO QD 09/29/2018 0 11/25/2018 Inactive DC any other synthroid strengths. Should be 50mcg only Synthroid 50 mcg tablet RxNorm: 893603 1 Tablet(s) PO QD 09/29/2018 1 11/28/2017 Inactive furosemide 40 mg tablet RxNorm: 098693 2 Tablet(s) PO Q AM for 1 week then every other day for 2 weeks 09/27/2018 10/12/2018 Inactive fluoxetine 40 mg capsule RxNorm: 789795 2 Capsule(s) PO QD 09/27/20 18 10/17/2018 Inactive potassium chloride ER 20 mEq tablet,extended release RxNorm: 229386 2 Tablet(s) PO QD for 1 week then every other day for 2 weeks 09/27/2018 2018 Inactive ProAir HFA 90 mcg/actuation aerosol inhaler RxNorm: 8847352 INHALE ONE PUFF BY MOUTH EVERY 4 HOURS FOR WHEEZING OR SHORTNESS OF BREATH 09/26/201811/23 Inactive Synthroid 75 mcg tablet RxNorm: 609204 1 Tablet(s) PO QD 09/09/2018 1 Inactive Synthroid 75 mcg tablet RxNorm: 753246 1 Tablet(s) PO QD 09/09/2018 1 11/28/2017 Inactive furosemide 40 mg tablet RxNorm: 651483 1 Tablet(s) PO QD 09/06/2018 1 Inactive potassium chloride ER 20 mEq tablet,extended release RxNorm: 029737 1 Tablet(s) PO QD 09/06/2018 09/19/2018 Inactive Duragesic 100 mcg/hr transdermal patch RxNorm: 180932 2 Application TD Q48H for pain 08/30/2018 09/28/2018 Inactive gabapentin 300 mg capsule RxNorm: 532794 TAKE ONE CAPSULE BY MO UT TWICE A DAY 08/23/2018 12/20/2018 Inactive Daliresp 500 mcg tablet RxNorm: 8606140 TAKE ONE TABLET BY MOUTH DAILY 08/23/2018 01/19/2019 Inactive Pulmicort 1 mg/2 mL suspension for nebulization RxNorm: 6168 19 USE ONE VIAL VIA NEBULIZER BY MOUTH TWICE A DAY 08/23/2018 07/11/2019 Inactive Synthroid 88 mcg tablet RxNorm: 794600 1 Tablet(s) PO QD 08/19/2018 1 Inactive Medrol (Aníbal) 4 mg tablets in a dose pack RxNorm: 351910 Tablet(s) PO take as directed 08/16/2018 09/05/2018 Inactive Relistor 150 mg tablet RxNorm: 6961079 3 Tablet(s) PO QD 08/16/2018 1 Inactive Zithromax Z-Aníbal 250 mg tablet RxNorm: 603724 Tablet(s) PO take as directed 08/16/2018 09/05/2018 Inactive cyclobenzaprine 10 mg tablet RxNorm: 430887 1 Tablet(s) PO TID as needed 08/16/2018 11/08/2018 Inactive Synthroid 88 mcg tablet RxNorm: 434256 1 Tablet(s) PO Q D NEEDS UPDATED LABS BEFORE FURTHER REFILLS 08/08/2018 08/19/2018 Inactive Premarin 0.45 mg tablet RxNorm: 095799 1 Tablet(s) PO QD 08/03/2018 0 01/31/2019 Inactive fluoxetine 20 mg capsule RxNorm: 411428 TAKE ONE CAPSULE BY BENOIT TH DAILY 08/03/2018 09/26/2018 Inactive Xtampza ER 36 mg capsule sprinkle RxNorm: 1557776 1 Capsule(s) P O BID 08/03/2018 09/01/2018 Inactive metformin ER 500 mg tablet,extended release 24 hr RxNorm: 86 0975 1 Tablet(s) PO QD 08/03/2018 10/31/2018 Inactive Symbicort 160 mcg-4.5 mcg/actuation HFA aerosol inhaler RxNo rm: 5401108 2 Puff(s) INH BID 08/03/2018 01/29/2019 Inactive Duragesic 100 mcg/hr transdermal patch RxNorm: 187482 2 Application TD Q48H for pain 07/29/2018 08/27/2018 Inactive ProAir HFA 90 mcg/actuation aerosol inhaler RxNorm: 183942 INHALE TWO PUFFS BY MOUTH EVERY 4 HOURS FOR WHEEZING OR SHORTNESS OF BREATH 07/27/201802/2018 Inactive Relistor 150 mg tablet RxNorm: 5422082 3 Tablet(s) PO QD 07/20/2018 0 08/15/2018 Inactive metformin ER 500 mg tablet,extended release 24 hr RxNorm: 86 0975 TAKE ONE TABLET BY MOUTH DAILY 07/08/2018 08/02/2018 Inactive fluoxetine 40 mg capsule RxNorm: 632681 TAKE ONE CAPSULE BY BENOIT TH EVERY MORNING 07/08/2018 10/05/2018 Inactive Xtampza ER 18 mg capsule sprinkle RxNorm: 6178058 1 Capsule(s) P O BID 07/08/2018 08/02/2018 Inactive Relistor 150 mg tablet RxNorm: 5351135 3 Tablet(s) PO QD 07/08/2018 0 07/12/2018 Inactive Synthroid 88 mcg tablet RxNorm: 913352 1 Tablet(s) PO Q D NEEDS UPDATED LABS BEFORE FURTHER REFILLS 06/23/2018 07/07/2018 Inactive fluoxetine 40 mg capsule RxNorm: 908865 TAKE ONE CAPSULE BY BENOIT TH EVERY MORNING 06/15/2018 09/26/2018 Inactive orphenadrine citrate ER 100 mg tablet,extended release RxNor m: 368044 TAKE ONE TABLET BY MOUTH TWICE A DAY FOR MUSCLE SPASM 06/15/2018 08/15/2018 Renu ctive Duragesic 100 mcg/hr transdermal patch RxNorm: 176063 2 Application TD Q48H for pain 05/30/2018 06/28/2018 Inactive ProAir HFA 90 mcg/actuation aerosol inhaler RxNorm: 629551 INHALE TWO PUFFS BY MOUTH EVERY 4 HOURS FOR WHEEZING OR SHORTNESS OF BREATH 05/19/201803/2018 Inactive Chantix Continuing Month Box 1 mg tablet RxNorm: 201907 TAKE ONE TABLET BY MOUTH TWICE A DAY 05/19/2018 08/15/2018 Inactive oxycodone 10 mg tablet RxNorm: 8133331 1-2 Tablet(s) PO QID as n eeded for pain 05/19/2018 07/07/2018 Inactive gabapentin 300 mg capsule RxNorm: 510911 TAKE ONE CAPSULE BY MO UTH TWICE A DAY 05/18/2018 07/16/2018 Inactive ProAir HFA 90 mcg/actuation aerosol inhaler RxNorm: 004922 INHALE TWO PUFFS BY MOUTH EVERY 4 HOURS FOR WHEEZING OR SHORTNESS OF BREATH 05/04/201804/23 Inactive Augmentin 500 mg-125 mg tablet RxNorm: 140837 1 Tablet(s) PO BID 05/03/2018 Inactive oxycodone 10 mg tablet RxNorm: 2354977 1-2 Tablet(s) PO QID as n eeded for pain 04/21/2018 05/18/2018 Inactive Synthroid 88 mcg tablet RxNorm: 523380 1 Tablet(s) PO QD 04/15/2018 0 08/08/2018 Inactive Symbicort 160 mcg-4.5 mcg/actuation HFA aerosol inhaler RxNo rm: 0145793 2 Puff(s) INH BID 04/15/2018 04/10/2019 Inactive Premarin 0.45 mg tablet RxNorm: 516672 1 Tablet(s) PO QD 04/15/2018 0 08/03/2018 Inactive ProAir HFA 90 mcg/actuation aerosol inhaler RxNorm: 494789 2 Puff(s) INH Q4H prn for wheezing or shortness of breath 04/15/2018 05/03/2018 Inactive metformin ER 500 mg tablet,extended release 24 hr RxNorm: 86 0975 1 Tablet(s) PO QD 04/11/2018 07/07/2018 Inactive omeprazole 40 mg capsule,delayed release RxNorm: 991344 TAKE ONE CAPSULE BY MOUTH DAILY 04/10/2018 06/08/2018 Inactive Synthroid 88 mcg tablet RxNorm: 701841 1 Tablet(s) PO QD 04/04/2018 0 04/14/2018 Inactive Synthroid 88 mcg tablet RxNorm: 391777 1 Tablet(s) PO QD 04/04/2018 0 04/03/2018 Inactive orphenadrine citrate ER 100 mg tablet,extended release RxNor m: 733960 1 Tablet(s) PO BID for muscle spasm 04/04/2018 05/03/2018 Inactive metformin ER 500 mg tablet,extended release 24 hr RxNorm: 86 0975 1 Tablet(s) PO QD NEEDS UPDATED LABS 03/31/2018 04/11/2018 Inactive doxycycline hyclate 100 mg capsule RxNorm: 4748140 1 Capsule(s) PO BID 03/31/2018 04/09/2018 Inactive prednisone 20 mg tablet RxNorm: 634990 3 Tablet(s) PO T ID for 3 days then 1 po BID for 3 days then one daily for 3 days 03/31/2018 07/06/2018 Inactiv e Chantix Continuing Month Box 1 mg tablet RxNorm: 136482 TAKE ONE TABLET BY MOUTH TWICE A DAY 03/25/2018 03/30/2018 Inactive oxycodone 10 mg tablet RxNorm: 2585759 1-2 Tablet(s) PO QID as n eeded for pain 03/21/2018 04/20/2018 Inactive Daliresp 500 mcg tablet RxNorm: 5565714 1 Tablet(s) PO QD 03/15/2018 08/22/2018 Inactive metformin ER 500 mg tablet,extended release 24 hr RxNorm: 86 0975 1 Tablet(s) PO QD NEEDS UPDATED LABS 03/14/2018 03/31/2018 Inactive nystatin 100,000 unit/mL oral suspension RxNorm: 255665 5 Chio liter(s) PO QID 03/02/2018 03/15/2018 Inactive nystatin 100,000 unit/mL oral suspension RxNorm: 664235 5 Chio liter(s) PO QID 03/02/2018 03/01/2018 Inactive oxycodone 10 mg tablet RxNorm: 2095736 1-2 Tablet(s) PO QID as n eeded for pain 02/16/2018 03/20/2018 Inactive fluoxetine 20 mg capsule RxNorm: 877106 1 Capsule(s) PO QD 02/15/20 18 08/02/2018 Inactive metformin ER 500 mg tablet,extended release 24 hr RxNorm: 86 0975 1 Tablet(s) PO QD Needs updated labs 02/14/2018 03/14/2018 Inactive cefdinir 300 mg capsule RxNorm: 137032 1 Capsule(s) PO BID 01/27/20 18 02/04/2018 Inactive orphenadrine citrate ER 100 mg tablet,extended release RxNor m: 409067 1 Tablet(s) PO BID for muscle spasm 01/26/2018 04/04/2018 Inactive gabapentin 300 mg capsule RxNorm: 587072 1 Capsule(s) PO BID 201704/17/2018 Inactive oxycodone 10 mg tablet RxNorm: 1605778 1-2 Tablet(s) PO QID as n eeded for pain 01/17/2018 02/15/2018 Inactive Duragesic 100 mcg/hr transdermal patch RxNorm: 370923 2 Application TD Q48H for pain 01/17/2018 02/15/2018 Inactive gabapentin 300 mg capsule RxNorm: 986581 TAKE ONE CAPSULE BY MO UTH TWICE A DAY 12/20/2017 01/18/2018 Inactive fluoxetine 40 mg capsule RxNorm: 478427 TAKE ONE CAPSULE BY BENOIT TH EVERY MORNING 12/15/2017 03/14/2018 Inactive OneTouch Ultra Test strips RxNorm: TEST DAILY 11/04/2017 02/01/2018 Inactive gabapentin 300 mg capsule RxNorm: 260856 1 Capsule(s) P O TID replaces BID dosing 10/26/2017 02/22/2018 Inactive oxycodone 10 mg tablet RxNorm: 7766317 1-2 Tablet(s) PO QID as n eeded for pain 10/18/2017 01/16/2018 Inactive Duragesic 100 mcg/hr transdermal patch RxNorm: 053988 2 Application TD Q48H for pain 10/18/2017 11/16/2017 Inactive gabapentin 300 mg capsule RxNorm: 776448 1 Capsule(s) PO BID 201610/25/2017 Inactive Abilify 5 mg tablet RxNorm: 795829 1 Tablet(s) PO QAM 09/23/201702/2017 Inactive gabapentin 300 mg capsule RxNorm: 568754 1 Capsule(s) PO BID 201610/17/2017 Inactive oxycodone 10 mg tablet RxNorm: 2881117 1-2 Tablet(s) PO QID as n eeded for pain 09/15/2017 10/17/2017 Inactive Duragesic 100 mcg/hr transdermal patch RxNorm: 057335 2 Application TD Q48H for pain 09/15/2017 10/14/2017 Inactive Duragesic 100 mcg/hr transdermal patch RxNorm: 254289 2 Application TD Q48H for pain 09/15/2017 10/24/2019 Inactive oxycodone 10 mg tablet RxNorm: 2144003 1-2 Tablet(s) PO QID as n eeded for pain 09/15/2017 08/15/2018 Inactive Daliresp 500 mcg tablet RxNorm: 0710331 1 Tablet(s) PO QD 09/06/2017 03/15/2018 Inactive Ventolin HFA 90 mcg/actuation aerosol inhaler RxNorm: 962950 2 Puff(s) INH Q4H as needed 09/02/2017 05/19/2018 Inactive oxycodone 10 mg tablet RxNorm: 7658939 1-2 Tablet(s) PO QID as n eeded for pain 08/17/2017 09/14/2017 Inactive Duragesic 100 mcg/hr transdermal patch RxNorm: 556896 2 Application TD Q48H for pain 08/17/2017 09/14/2017 Inactive fluoxetine 40 mg capsule RxNorm: 063741 Capsule(s) TAKE ONE CAPSULE BY MOUTH EVERY MORNING 08/17/2017 12/14/2017 Inactive Pulmicort 1 mg/2 mL suspension for nebulization RxNorm: 6168 19 1 Unit Dose INH BID Dx: COPD (J44.9) 08/16/2017 08/22/2018 Inactive gabapentin 300 mg capsule RxNorm: 560207 1 Capsule(s) PO QHS 201610/18/2017 Inactive fluoxetine 20 mg capsule RxNorm: 255234 1 Capsule(s) PO QD 08/12/20 17 02/14/2018 Inactive Abilify 2 mg tablet RxNorm: 892702 1 Tablet(s) PO QD TA KE ONE TABLET BY MOUTH DAILY 08/12/2017 10/25/2017 Inactive metformin ER 500 mg tablet,extended release 24 hr RxNorm: 86 0975 1 Tablet(s) PO QD 08/10/2017 02/14/2018 Inactive Synthroid 112 mcg tablet RxNorm: 875048 1 Tablet(s) PO QD 08/10/2017 04/15/2018 Inactive oxycodone 10 mg tablet RxNorm: 9208889 1-2 Tablet(s) PO QID as n eeded for pain 07/19/2017 08/16/2017 Inactive Duragesic 100 mcg/hr transdermal patch RxNorm: 944546 2 Application TD Q48H for pain 07/19/2017 08/16/2017 Inactive Ventolin HFA 90 mcg/actuation aerosol inhaler RxNorm: 598148 2 Puff(s) INH Q4H as needed 07/12/2017 09/02/2017 Inactive Abilify 2 mg tablet RxNorm: 767507 1 Tablet(s) PO QD TA KE ONE TABLET BY MOUTH DAILY 07/06/2017 08/11/2017 Inactive gabapentin 800 mg tablet RxNorm: 673612 1 Tablet(s) PO TID 06/22/20 17 07/05/2017 Inactive Chantix Starting Month Box 0.5 mg (11)-1 mg (42) table ts in dose pack RxNorm: 913688 TAKE BY MOUTH INSTRUCTED - PER PACKAGE INSTRUCTIONS 06/0707/04/2017 Inactive Ventolin HFA 90 mcg/actuation aerosol inhaler RxNorm: 164767 2 Puff(s) INH Q4H as needed 05/26/2017 07/12/2017 Inactive Duragesic 100 mcg/hr transdermal patch RxNorm: 523615 2 Application TD Q48H for pain 05/19/2017 06/17/2017 Inactive oxycodone 10 mg tablet RxNorm: 4491400 1-2 Tablet(s) PO QID as n eeded for pain 05/19/2017 07/18/2017 Inactive Abilify 2 mg tablet RxNorm: 611904 TAKE ONE TABLET BY MOUTH DAILY 0 05/10/2017 07/05/2017 Inactive Synthroid 112 mcg tablet RxNorm: 277708 1 Tablet(s) PO QD 05/06/2017 08/10/2017 Inactive metformin ER 500 mg tablet,extended release 24 hr RxNorm: 86 0975 1 Tablet(s) PO QD 05/06/2017 08/10/2017 Inactive Topamax 100 mg tablet RxNorm: 356531 1 Tablet(s) PO QHS 05/06/2017 Inactive Premarin 0.45 mg tablet RxNorm: 646347 1 Tablet(s) PO QD 05/06/2017 0 04/15/2018 Inactive orphenadrine citrate ER 100 mg tablet,extended release RxNor m: 484943 1 Tablet(s) PO TID for muscle spasm--replaces methocarbamol 04/29/2017 Inactive oxycodone 10 mg tablet RxNorm: 4806572 1-2 Tablet(s) PO QID as n eeded for pain 04/21/2017 05/18/2017 Inactive Duragesic 100 mcg/hr transdermal patch RxNorm: 758718 2 Application TD Q48H for pain 04/21/2017 05/18/2017 Inactive fluoxetine 40 mg capsule RxNorm: 366971 Capsule(s) TAKE ONE CAPSULE BY MOUTH EVERY MORNING 04/20/2017 08/17/2017 Inactive Ventolin HFA 90 mcg/actuation aerosol inhaler RxNorm: 409960 2 Puff(s) INH Q4H as needed 04/05/2017 05/26/2017 Inactive Symbicort 160 mcg-4.5 mcg/actuation HFA aerosol inhaler RxNo rm: 9234613 2 Puff(s) INH BID 03/30/2017 04/15/2018 Inactive Spiriva with HandiHaler 18 mcg and inhalation capsules RxNor m: 073186 1 Capsule(s) INH QD USING HANDIHALER 03/30/2017 02/12/2019 Inactive Duragesic 100 mcg/hr transdermal patch RxNorm: 699959 2 Application TD Q48H for pain 03/18/2017 04/16/2017 Inactive oxycodone 10 mg tablet RxNorm: 7155951 1-2 Tablet(s) PO QID as n eeded for pain 03/18/2017 04/20/2017 Inactive metformin ER 500 mg tablet,extended release 24 hr RxNorm: 86 0975 Tablet(s) TAKE ONE TABLET BY MOUTH DAILY 03/01/2017 05/06/2017 Inactive Premarin 0.45 mg tablet RxNorm: 040974 Tablet(s) TAKE ONE TABLE T BY MOUTH DAILY 03/01/2017 05/06/2017 Inactive Synthroid 112 mcg tablet RxNorm: 482185 Tablet(s) TAKE ONE TABLET BY MOUTH DAILY 03/01/2017 05/06/2017 Inactive Daliresp 500 mcg tablet RxNorm: 9388728 1 Tablet(s) PO QD 03/01/2017 09/06/2017 Inactive 16.2 mg-0.1037 mg-0.0194 mg tablet RxNorm: 6397152 Tablet(s) PO PRN for gas and cramping 02/23/2017 04/28/2017 Inactive TAKE TWO TABLET S BY MOUTH THREE TIMES A DAY NEEDED FOR GAS AND CRAMPING gabapentin 800 mg tablet RxNorm: 851816 1 Tablet(s) PO TID repl aces 600mg 02/23/2017 04/28/2017 Inactive Duragesic 100 mcg/hr transdermal patch RxNorm: 410960 2 Application TD Q48H for pain 02/17/2017 03/17/2017 Inactive fluoxetine 20 mg capsule RxNorm: 101523 1 Capsule(s) PO QD 02/18/20 17 08/12/2017 Inactive oxycodone 20 mg tablet RxNorm: 1679367 1 Tablet(s) PO QID as nee ded for pain 02/17/2017 03/17/2017 Inactive Ventolin HFA 90 mcg/actuation aerosol inhaler RxNorm: 485344 INHALE TWO PUFFS BY MOUTH EVERY 4 HOURS NEEDED 02/15/2017 04/05/2017 Inactive Silvadene 1 % topical cream RxNorm: 905051 1 Application TOP BI D to burn area 02/01/2017 09/22/2017 Inactive Topamax 100 mg tablet RxNorm: 881185 TAKE ONE TABLET BY MOUTH EVERY NIGHT AT BEDTIME 01/29/2017 05/06/2017 Inactive Chantix Starting Month Box 0.5 mg (11)-1 mg (42) table ts in dose pack RxNorm: 810948 Tablet(s) PO as directed 01/29/2017 06/01/2017 Inactive Abilify 2 mg tablet RxNorm: 301431 TAKE ONE TABLET BY MOUTH DAILY 0 01/26/2017 04/25/2017 Inactive Chantix Starting Month Box 0.5 mg (11)-1 mg (42) table ts in dose pack RxNorm: 994728 Tablet(s) PO as directed 01/20/2017 01/28/2017 Inactive gabapentin 600 mg tablet RxNorm: 237596 1 Tablet(s) PO TID 01/21/20 17 02/22/2017 Inactive Chantix Continuing Month Box 1 mg tablet RxNorm: 312105 1 Table t(s) PO BID 12/31/2016 06/01/2017 Inactive Spiriva with HandiHaler 18 mcg and inhalation capsules RxNor m: 387543 INHALE THE ENTIRE CONTENTS OF 1 CAPSULE ONCE A DAY USING HANDIHALER 12/31/201607/2017 Inactive Synthroid 112 mcg tablet RxNorm: 272654 TAKE ONE TABLET BY MOUT H DAILY 12/30/2016 03/01/2017 Inactive metformin ER 500 mg tablet,extended release 24 hr RxNorm: 86 0975 TAKE ONE TABLET BY MOUTH DAILY 12/30/2016 03/01/2017 Inactive Premarin 0.45 mg tablet RxNorm: 510675 TAKE ONE TABLET BY MOUTH DAILY 12/30/2016 03/01/2017 Inactive omeprazole 40 mg capsule,delayed release RxNorm: 873478 TAKE ONE CAPSULE BY MOUTH DAILY 12/30/2016 01/25/2018 Inactive Ventolin HFA 90 mcg/actuation aerosol inhaler RxNorm: 491543 INHALE TWO PUFFS BY MOUTH EVERY 4 HOURS NEEDED 12/28/2016 02/13/2017 Inactive fluoxetine 40 mg capsule RxNorm: 885652 TAKE ONE CAPSULE BY BENOIT TH EVERY MORNING 12/15/2016 04/20/2017 Inactive Chantix Continuing Month Box 1 mg tablet RxNorm: 453411 TAKE ONE TABLET BY MOUTH TWICE A DAY 12/04/2016 12/31/2016 Inactive doxycycline hyclate 100 mg capsule RxNorm: 9769517 1 Capsule(s) PO BID 12/01/2016 12/07/2016 Inactive Levaquin 750 mg tablet RxNorm: 423456 1 Tablet(s) PO QD 12/01/2016 Inactive Abilify 2 mg tablet RxNorm: 482474 TAKE ONE TABLET BY MOUTH DAILY 0 11/25/2016 11/30/2016 Inactive Ventolin HFA 90 mcg/actuation aerosol inhaler RxNorm: 220549 INHALE TWO PUFFS BY MOUTH EVERY 4 HOURS NEEDED 11/02/2016 12/19/2016 Inactive Chantix Continuing Month Box 1 mg tablet RxNorm: 439669 Tablet(s) PO as directed 10/30/2016 12/03/2016 Inactive Symbicort 160 mcg-4.5 mcg/actuation HFA aerosol inhaler RxNo rm: 5564810 INHALE TWO PUFFS TWO TIMES A DAY 10/30/2016 03/30/2017 Inactive Abilify 2 mg tablet RxNorm: 319632 1 Tablet(s) PO QD 10/27/201611/24 Inactive amoxicillin 500 mg capsule RxNorm: 137020 1 Capsule(s) PO TID 10/1410/23/2016 Inactive amoxicillin 500 mg capsule RxNorm: 266711 1 Capsule(s) PO TID 10/1410/13/2016 Inactive Synthroid 112 mcg tablet RxNorm: 256886 TAKE ONE TABLET BY MOUT H DAILY 09/28/2016 12/29/2016 Inactive Topamax 100 mg tablet RxNorm: 358977 TAKE ONE TABLET BY MOUTH EVERY NIGHT AT BEDTIME 09/28/2016 01/28/2017 Inactive Premarin 0.45 mg tablet RxNorm: 770387 TAKE ONE TABLET BY MOUTH DAILY 09/28/2016 12/29/2016 Inactive metformin ER 500 mg tablet,extended release 24 hr RxNorm: 86 0975 TAKE ONE TABLET BY MOUTH DAILY 09/28/2016 12/29/2016 Inactive Ventolin HFA 90 mcg/actuation aerosol inhaler RxNorm: 573366 INHALE TWO PUFFS BY MOUTH EVERY 4 HOURS NEEDED 09/22/2016 10/23/2016 Inactive Pulmicort 1 mg/2 mL suspension for nebulization RxNorm: 6168 19 1 Unit Dose INH BID Dx: COPD (J44.9) 09/10/2016 08/16/2017 Inactive Pulmicort 1 mg/2 mL suspension for nebulization RxNorm: 6168 19 1 Unit Dose INH BID 09/10/2016 09/09/2016 Inactive Brovana 15 mcg/2 mL solution for nebulization RxNorm: 731897 1 Unit Dose INH BID Dx: COPD (J44.9) 09/10/2016 01/25/2018 Inactive Brovana 15 mcg/2 mL solution for nebulization RxNorm: 213776 1 Unit Dose INH BID 09/10/2016 09/09/2016 Inactive ipratropium-albuterol 0.5 mg-3 mg(2.5 mg base)/3 mL ne bulization soln RxNorm: 3373772 1 Unit Dose INH Q4H as needed Dx: COPD (J44.9) 09/10/2016 0 02/12/2019 Inactive orphenadrine citrate ER 100 mg tablet,extended release RxNor m: 661526 1 Tablet(s) PO BID for muscle spasm--replaces methocarbamol 09/09/2016 Inactive Chantix Continuing Month Box 1 mg tablet RxNorm: 499421 Tablet(s) PO as directed 09/09/2016 10/30/2016 Inactive orphenadrine citrate ER 100 mg tablet,extended release RxNor m: 293451 1 Tablet(s) PO BID for muscle spasm 09/09/2016 09/08/2016 Inactive Spiriva with HandiHaler 18 mcg and inhalation capsules RxNor m: 557943 INHALE THE ENTIRE CONTENTS OF 1 CAPSULE ONCE A DAY USING HANDIHALER 09/01/201605/2017 Inactive Daliresp 500 mcg tablet RxNorm: 8689671 1 Tablet(s) PO QD 08/27/2016 03/01/2017 Inactive prednisone 20 mg tablet RxNorm: 693232 3 Tablet(s) PO T ID for 3 days then 1 po BID for 3 days then one daily for 3 days 08/26/2016 04/28/2017 Inactiv e Wellbutrin XL 300 mg 24 hr tablet, extended release RxNorm: 589610 TAKE ONE TABLET BY MOUTH EVERY MORNING 07/29/2016 10/26/2016 Inactive gabapentin 600 mg tablet RxNorm: 055260 1 Tablet(s) PO BID 06/26/20 16 12/22/2016 Inactive fluoxetine 40 mg capsule RxNorm: 914768 TAKE ONE CAPSULE BY BENOIT TH EVERY MORNING 06/24/2016 11/20/2016 Inactive Duragesic 100 mcg/hr transdermal patch RxNorm: 446299 2 Application TD Q48H for pain 06/05/2016 07/04/2016 Inactive oxycodone 10 mg tablet RxNorm: 9406904 1-2 Tablet(s) PO QID as n eeded for pain 06/05/2016 03/17/2017 Inactive Belladonna-Phenobarbital 48 mg tablet,extended release RxNor m: 2 Tablet(s) PO TID 06/05/2016 01/19/2017 Inactive Premarin 0.45 mg tablet RxNorm: 167753 TAKE ONE TABLET BY MOUTH DAILY 05/27/2016 09/23/2016 Inactive Topamax 100 mg tablet RxNorm: 082028 TAKE ONE TABLET BY MOUTH EVERY NIGHT AT BEDTIME 05/27/2016 09/27/2016 Inactive Synthroid 112 mcg tablet RxNorm: 686388 TAKE ONE TABLET BY MOUT H DAILY 05/27/2016 09/23/2016 Inactive metformin ER 500 mg tablet,extended release 24 hr RxNorm: 86 0975 TAKE ONE TABLET BY MOUTH DAILY 05/27/2016 09/23/2016 Inactive Symbicort 160 mcg-4.5 mcg/actuation HFA aerosol inhaler RxNo rm: 5994940 INHALE TWO PUFFS TWO TIMES A DAY 05/27/2016 10/23/2016 Inactive Ventolin HFA 90 mcg/actuation aerosol inhaler RxNorm: 881901 INHALE TWO PUFFS BY MOUTH EVERY 4 HOURS NEEDED 05/21/2016 07/07/2016 Inactive omeprazole 40 mg capsule,delayed release RxNorm: 788733 1 Capsu le(s) PO QD 05/06/2016 08/03/2016 Inactive metformin ER 500 mg tablet,extended release 24 hr RxNorm: 86 0975 TAKE ONE TABLET BY MOUTH DAILY 04/23/2016 05/22/2016 Inactive methocarbamol 750 mg tablet RxNorm: 277882 2 Tablet(s) PO TID as needed for muscle spasm 04/23/2016 09/08/2016 Inactive Synthroid 112 mcg tablet RxNorm: 429733 TAKE ONE TABLET BY MOUT H DAILY 04/23/2016 05/22/2016 Inactive Spiriva with HandiHaler 18 mcg and inhalation capsules RxNor m: 165867 INHALE THE ENTIRE CONTENTS OF 1 CAPSULE ONCE A DAY USING HANDIHALER 04/09/201608/2016 Inactive Diflucan 100 mg tablet RxNorm: 310519 1 Tablet(s) PO QD 04/08/2016 Inactive doxycycline hyclate 100 mg capsule RxNorm: 5772570 1 Capsule(s) PO BID 04/08/2016 04/17/2016 Inactive doxycycline hyclate 100 mg capsule RxNorm: 1099821 1 Capsule(s) PO BID 04/08/2016 04/07/2016 Inactive Diflucan 100 mg tablet RxNorm: 868801 1 Tablet(s) PO QD 04/08/2016 Inactive ondansetron HCl 4 mg tablet RxNorm: 848406 1 Tablet(s) PO Q4H as needed for nausea and vomiting 04/08/2016 09/22/2017 Inactive gabapentin 600 mg tablet RxNorm: 361286 TAKE ONE TABLET BY MOUT H TWICE A DAY 03/24/2016 06/25/2016 Inactive Synthroid 112 mcg tablet RxNorm: 612744 TAKE ONE TABLET BY MOUT H DAILY 02/25/2016 04/22/2016 Inactive Levaquin 500 mg tablet RxNorm: 590596 1 Tablet(s) PO QD 01/23/2016 Inactive prednisone 20 mg tablet RxNorm: 861045 1 Tablet(s) PO T ID for 3 days then 1 po BID for 3 days then one daily for 3 days 01/23/2016 08/25/2016 Inactiv e [employer] Ultra Test strips RxNorm: TEST BLOOD SUGAR ONCE DAILY 250.00 01/09/2016 11/04/2017 Inactive methocarbamol 750 mg tablet RxNorm: 078571 2 Tablet(s) PO TID as needed for muscle spasm 01/09/2016 04/23/2016 Inactive lactulose 10 gram/15 mL oral solution RxNorm: 437672 [address](s) PO QD 01/09/2016 09/22/2017 Inactive TAKE 1 TABLESPOON BY MOUTH ONCE DAILY metformin ER 500 mg tablet,extended release 24 hr RxNorm: 86 0975 1 Tablet(s) PO QD 12/26/2015 04/22/2016 Inactive fluoxetine 20 mg capsule RxNorm: 803167 1 Capsule(s) PO QD 12/23/19 16 06/19/2016 Inactive Premarin 0.45 mg tablet RxNorm: 358740 TAKE ONE TABLET BY MOUTH DAILY 12/23/2015 05/20/2016 Inactive fluoxetine 40 mg capsule RxNorm: 595241 1 Capsule(s) PO QD 12/23/19 16 06/19/2016 Inactive TAKE ONE CAPSULE BY MOUTH EV JANKI MORNING azithromycin 500 mg tablet RxNorm: 113633 1 Tablet(s) PO QD 016 12/19/2015 Inactive Zofran 4 mg tablet RxNorm: 465341 1 Tablet(s) PO Q4H prn nausea /vomiting 12/13/2015 03/30/2018 Inactive azithromycin 500 mg tablet RxNorm: 675774 1 Tablet(s) PO QD 016 12/12/2015 Inactive Duragesic 100 mcg/hr transdermal patch RxNorm: 813619 2 Application TD Q48H for pain 12/09/2015 01/07/2016 Inactive oxycodone 10 mg tablet RxNorm: 4148803 1-2 Tablet(s) PO QID as n eeded for pain 12/09/2015 06/04/2016 Inactive Bactroban 2 % topical cream RxNorm: 814421 Application TOP BID 11/2208/25/2016 Inactive doxycycline hyclate 100 mg capsule RxNorm: 6205209 1 Capsule(s) PO BID 12/03/2015 12/12/2015 Inactive Topamax 100 mg tablet RxNorm: 960578 TAKE ONE TABLET BY MOUTH EVERY NIGHT AT BEDTIME 11/25/2015 05/22/2016 Inactive Symbicort 160 mcg-4.5 mcg/actuation HFA aerosol inhaler RxNo rm: 3716243 INHALE TWO PUFFS TWO TIMES A DAY 11/25/2015 05/22/2016 Inactive Synthroid 112 mcg tablet RxNorm: 021759 Tablet(s) TAKE ONE TABLET BY MOUTH DAILY 11/25/2015 02/22/2016 Inactive omeprazole 40 mg capsule,delayed release RxNorm: 204263 1 Capsu le(s) PO QD 11/12/2015 05/05/2016 Inactive oxycodone 10 mg tablet RxNorm: 2731095 1-2 Tablet(s) PO QID as n eeded for pain 11/05/2015 12/08/2015 Inactive Duragesic 100 mcg/hr transdermal patch RxNorm: 705262 2 Application TD Q48H for pain 11/05/2015 12/04/2015 Inactive omeprazole 40 mg capsule,delayed release RxNorm: 623787 1 Capsu le(s) PO QD 10/07/2015 11/11/2015 Inactive Januvia 100 mg tablet RxNorm: 055886 TAKE ONE TABLET BY MOUTH DAILY 09/11/2015 12/25/2015 Inactive Zithromax 500 mg tablet RxNorm: 887915 1 Tablet(s) PO QD 09/10/2015 1 Inactive prednisone 20 mg tablet RxNorm: 593902 1 Tablet(s) PO T ID for 3 days then 1 po BID for 3 days then one daily for 3 days 09/10/2015 08/25/2016 Inactiv e Wellbutrin XL 300 mg 24 hr tablet, extended release RxNorm: 134208 1 Tablet(s) PO QAM 09/10/2015 12/02/2015 Inactive Topamax 100 mg tablet RxNorm: 419650 TAKE ONE TABLET BY MOUTH EVERY NIGHT AT BEDTIME 09/02/2015 11/24/2015 Inactive Synthroid 112 mcg tablet RxNorm: 447033 TAKE ONE TABLET BY MOUT H DAILY 09/02/2015 11/25/2015 Inactive methocarbamol 750 mg tablet RxNorm: 872372 2 Tablet(s) PO TID as needed for muscle spasm 08/15/2015 01/09/2016 Inactive Wellbutrin XL 150 mg 24 hr tablet, extended release RxNorm: 304303 TAKE ONE TABLET BY MOUTH EVERY MORNING 08/13/2015 08/13/2015 Inactive gabapentin 600 mg tablet RxNorm: 271990 1 Tablet(s) PO BID 08/13/20 15 02/08/2016 Inactive Wellbutrin XL 300 mg 24 hr tablet, extended release RxNorm: 752550 1 Tablet(s) PO QAM 08/06/2015 09/09/2015 Inactive Wellbutrin XL 150 mg 24 hr tablet, extended release RxNorm: 014291 1 Tablet(s) PO QAM 07/18/2015 08/05/2015 Inactive prednisone 20 mg tablet RxNorm: 735263 1 Tablet(s) PO BID 07/18/2015 07/22/2015 Inactive doxycycline hyclate 100 mg tablet,delayed release RxNorm: 43 4018 1 Tablet(s) PO BID 07/18/2015 07/27/2015 Inactive pravastatin 40 mg tablet RxNorm: 289817 1 Tablet(s) PO QD NEEDS FASTING LAB 07/15/2015 07/14/2015 Inactive pravastatin 40 mg tablet RxNorm: 919368 1 Tablet(s) PO QD NEEDS FASTING LAB 07/15/2015 01/25/2018 Inactive Ventolin HFA 90 mcg/actuation aerosol inhaler RxNorm: 330594 2 Puff(s) INH Q4H 07/08/2015 07/07/2015 Inactive prn Premarin 0.45 mg tablet RxNorm: 139978 1 Tablet(s) PO QD 07/01/2015 0 12/22/2015 Inactive pravastatin 40 mg tablet RxNorm: 546079 1 Tablet(s) PO QD NEEDS FASTING LAB 06/14/2015 07/15/2015 Inactive Ventolin HFA 90 mcg/actuation aerosol inhaler RxNorm: 3248884 2 Puff(s) INH Q4H 06/06/2015 07/08/2015 Inactive prn albuterol sulfate 2.5 mg/3 mL (0.083 %) solution for n ebulization RxNorm: 044225 1 Unit Dose INH QID 05/30/2015 No Stop Date Active Duragesic 100 mcg/hr transdermal patch RxNorm: 630606 2 Application TD Q48H for pain 04/29/2015 05/28/2015 Inactive gabapentin 600 mg tablet RxNorm: 795770 1 Tablet(s) PO BID 04/11/20 15 08/13/2015 Inactive Onglyza 5 mg tablet RxNorm: 157104 1 Tablet(s) PO QD for blood suga r 04/10/2015 04/15/2015 Inactive [Brand Copay Card: RxBIN:[id number] PCN: RxGRP:[id number] ID#:[id number]] methocarbamol 750 mg tablet RxNorm: 061543 2 Tablet(s) PO TID as needed for muscle spasm 03/28/2015 08/15/2015 Inactive pravastatin 40 mg tablet RxNorm: 356249 1 Tablet(s) PO QD 03/19/2015 03/18/2015 Inactive pravastatin 40 mg tablet RxNorm: 658024 1 Tablet(s) PO QD 03/19/2015 06/14/2015 Inactive lactulose 10 gram/15 mL oral solution RxNorm: 134486 [address]s) PO QD 03/07/2015 01/09/2016 Inactive TAKE 1 TABLESPOON BY MOUTH ONCE DAILY oxycodone 20 mg tablet RxNorm: 3054676 1 Tablet(s) PO QID as nee ded for pain 03/05/2015 07/08/2015 Inactive Topamax 100 mg tablet RxNorm: 367290 1 Tablet(s) PO QHS TAKE ONE TABLET BY MOUTH AT BEDTIME 02/25/2015 02/12/2019 Inactive metformin ER 500 mg tablet,extended release 24 hr RxNorm: 86 0975 1 Tablet(s) PO QD 02/11/2015 03/04/2015 Inactive take one tablet by mouth every day Daliresp 500 mcg tablet RxNorm: 9235814 1 Tablet(s) PO QD 02/11/2015 08/09/2015 Inactive Endocet 10 mg-325 mg tablet RxNorm: 5659866 1 Tablet(s) PO Q4H as needed for pain 01/23/2015 01/23/2015 Inactive gabapentin 600 mg tablet RxNorm: 718175 1 Tablet(s) PO BID 01/23/20 15 04/11/2015 Inactive methocarbamol 750 mg tablet RxNorm: 289143 2 Tablet(s) PO TID as needed for muscle spasm 01/15/2015 02/13/2015 Inactive fluoxetine 40 mg capsule RxNorm: 862176 1 Capsule(s) PO QD 01/14/20 15 12/23/2015 Inactive TAKE ONE CAPSULE BY MOUTH EV JANKI MORNING fluoxetine 20 mg capsule RxNorm: 373219 1 Capsule(s) PO QD 01/14/20 15 12/23/2015 Inactive Premarin 0.45 mg tablet RxNorm: 104996 1 Tablet(s) PO QD 01/02/2015 0 07/01/2015 Inactive Endocet 10 mg-325 mg tablet RxNorm: 0877776 1-2 Tablet(s) PO Q4H 02/12/2019 Inactive PRN PAIN Duragesic 100 mcg/hr transdermal patch RxNorm: 496020 2 Application TD Q48H for pain 12/25/2014 01/23/2015 Inactive Topamax 100 mg tablet RxNorm: 902813 1 Tablet(s) PO QHS TAKE ONE TABLET BY MOUTH AT BEDTIME 12/25/2014 02/24/2015 Inactive Tudorza Pressair 400 mcg/actuation breath activated RxNorm: 8161644 1 BID INHALE ONE PUFF INTO LUNGS TWO TIMES A DAY 12/17/2014 05/15/2015 Inactive Endocet 10 mg-325 mg tablet RxNorm: 7693336 1-2 Tablet(s) PO Q4H 12/19/2014 Inactive PRN PAIN Duragesic 100 mcg/hr transdermal patch RxNorm: 303225 2 Application TD Q48H for pain 11/20/2014 12/24/2014 Inactive [employer] Ultra Test strips RxNorm: TEST BLOOD SUGAR ONCE DAILY 250.00 11/16/2014 01/08/2016 Inactive omeprazole 40 mg capsule,delayed release RxNorm: 845400 1 Capsu le(s) PO QD 11/13/2014 11/12/2015 Inactive metformin ER 500 mg tablet,extended release 24 hr RxNorm: 86 0975 1 Tablet(s) PO QD 11/12/2014 02/11/2015 Inactive take one tablet by mouth every day Symbicort 160 mcg-4.5 mcg/actuation HFA aerosol inhaler RxNo rm: 4827762 2 Puff(s) INH BID 11/12/2014 03/11/2015 Inactive INHALE 2 PUFFS O RALLY TWO TIMES A DAY gabapentin 800 mg tablet RxNorm: 392845 1 Tablet(s) PO QD TAKE ONE TABLET BY MOUTH ONCE A DAY 10/22/2014 01/01/2015 Inactive Endocet 10 mg-325 mg tablet RxNorm: 6967977 1-2 Tablet(s) PO Q4H 11/15/2014 Inactive PRN PAIN Duragesic 100 mcg/hr transdermal patch RxNorm: 155254 2 Application TD Q48H for pain 10/17/2014 11/19/2014 Inactive gabapentin 800 mg tablet RxNorm: 729140 1 Tablet(s) PO QD TAKE ONE TABLET BY MOUTH ONCE A DAY 10/04/2014 10/21/2014 Inactive Premarin 0.9 mg tablet RxNorm: 372361 1 Tablet(s) PO QD TAKE ONE TABLET BY MOUTH ONCE A DAY 10/04/2014 01/01/2015 Inactive Spiriva with HandiHaler 18 mcg & inhalation capsules RxNorm: 999047 1 Capsule(s) INH QD 10/03/2014 04/30/2015 Inactive Levaquin 500 mg tablet RxNorm: 105745 1 Tablet(s) PO QD 10/03/2014 Inactive prednisone 20 mg tablet RxNorm: 328171 1 Tablet(s) PO QD 10/03/2014 1 12/09/2013 Inactive Duragesic 100 mcg/hr transdermal patch RxNorm: 825636 2 Application TD Q48H for pain 09/18/2014 10/16/2014 Inactive Endocet 10 mg-325 mg tablet RxNorm: 6527375 1-2 Tablet(s) PO Q4H 10/16/2014 Inactive PRN PAIN Synthroid 112 mcg tablet RxNorm: 836354 1 Tablet(s) QD 09/10/2014 Inactive Synthroid 112 mcg tablet RxNorm: 497663 TAKE ONE TABLET BY MOUTH ONE TIME A DAY. NEEDS LABS 09/10/2014 02/06/2015 Inactive omeprazole 40 mg capsule,delayed release RxNorm: 633288 1 Capsu le(s) PO QD 09/03/2014 11/13/2014 Inactive omeprazole 40 mg capsule,delayed release RxNorm: 016935 1 Capsu le(s) PO QD 09/03/2014 09/02/2014 Inactive Spiriva with HandiHaler 18 mcg & inhalation capsules RxNorm: 855468 1 Capsule(s) INH QD 08/27/2014 10/02/2014 Inactive gabapentin 600 mg tablet RxNorm: 659455 1 Tablet(s) PO BID 08/27/20 14 10/22/2014 Inactive Endocet 10 mg-325 mg tablet RxNorm: 1104274 1-2 Tablet(s) PO Q4H 09/17/2014 Inactive PRN PAIN fentanyl 100 mcg/hr transdermal patch RxNorm: 220180 1 Unit Dos e TD QD 08/21/2014 09/19/2014 Inactive Daliresp 500 mcg tablet RxNorm: 0771534 1 Tablet(s) PO QD 08/13/2014 02/11/2015 Inactive Synthroid 112 mcg tablet RxNorm: 482141 TAKE ONE TABLET BY MOUTH ONE TIME A DAY. NEEDS LABS 08/10/2014 09/10/2014 Inactive Endocet 10 mg-325 mg tablet RxNorm: 7635206 1-2 Tablet(s) PO Q4H 08/17/2014 Inactive PRN PAIN Duragesic 100 mcg/hr transdermal patch RxNorm: 268357 2 Application TD Q48H for pain 07/19/2014 09/17/2014 Inactive fluoxetine 40 mg capsule RxNorm: 999970 1 Capsule(s) PO QD 07/17/20 14 01/14/2015 Inactive TAKE ONE CAPSULE BY MOUTH EV JANKI MORNING fluoxetine 20 mg capsule RxNorm: 993654 1 Capsule(s) PO QD 07/17/20 14 01/14/2015 Inactive Spiriva with HandiHaler 18 mcg & inhalation capsules RxNorm: 515461 1 Capsule(s) INH QD 07/17/2014 08/26/2014 Inactive INHALE CONTENTS OF 1 CAPSULE(S) WITH HANDIHALER ONCE DAILY Zofran 4 mg tablet RxNorm: 202043 1 Tablet(s) PO Q4H prn nausea 07/25/2014 Inactive Synthroid 112 mcg tablet RxNorm: 380952 1 Tablet(s) PO QD 07/09/2014 07/09/2014 Inactive methocarbamol 750 mg tablet RxNorm: 343054 2 Tablet(s) PO TID as needed for muscle spasm 07/09/2014 09/06/2014 Inactive Synthroid 112 mcg tablet RxNorm: 044967 1 Tablet(s) PO QD - nee d labs 07/09/2014 08/07/2014 Inactive Medrol (Aníbal) 4 mg tablets in a dose pack RxNorm: 559559 6 Tablet(s) PO QD --then as directed 07/03/2014 07/08/2014 Inactive Tudorza Pressair 400 mcg/actuation breath activated RxNorm: 3111128 1 Puff(s) INH BID 07/03/2014 12/17/2014 Inactive cefdinir 300 mg capsule RxNorm: 846303 1 Capsule(s) PO BID 07/03/20 14 07/12/2014 Inactive Topamax 100 mg tablet RxNorm: 841481 Tablet(s) TAKE ONE TABLET BY MOUTH AT BEDTIME 07/02/2014 02/25/2015 Inactive Duragesic 100 mcg/hr transdermal patch RxNorm: 048589 2 Application TD Q48H for pain 06/25/2014 07/18/2014 Inactive Endocet 10 mg-325 mg tablet RxNorm: 4733082 1-2 Tablet(s) PO Q4H 07/18/2014 Inactive PRN PAIN metformin ER 500 mg tablet,extended release 24 hr RxNorm: 86 0975 1 Tablet(s) PO QD Needs labs 06/18/2014 07/01/2014 Inactive take one tablet by mouth every day Duragesic 100 mcg/hr transdermal patch RxNorm: 459754 2 Application TD Q48H for pain 05/22/2014 06/24/2014 Inactive Synthroid 112 mcg tablet RxNorm: 847580 1 Tablet(s) PO QD 05/22/2014 07/09/2014 Inactive Endocet 10 mg-325 mg tablet RxNorm: 2667292 1-2 Tablet(s) PO Q4H 06/20/2014 Inactive PRN PAIN Endocet 10 mg-325 mg tablet RxNorm: 0798584 1-2 Tablet(s) PO Q4H 05/21/2014 Inactive PRN PAIN Duragesic 100 mcg/hr transdermal patch RxNorm: 775035 2 Application TD Q48H for pain 04/25/2014 05/21/2014 Inactive Daliresp 500 mcg tablet RxNorm: 8588935 1 Tablet(s) PO QD 04/24/2014 08/13/2014 Inactive Symbicort 160 mcg-4.5 mcg/actuation HFA aerosol inhaler RxNo rm: 0974574 2 Puff(s) INH BID 04/24/2014 08/21/2014 Inactive INHALE 2 PUFFS O RALLY TWO TIMES A DAY metformin ER 500 mg tablet,extended release 24 hr RxNorm: 86 0975 1 Tablet(s) PO QD 04/24/2014 11/12/2014 Inactive TAKE ONE TABLET BY MOUTH EVERY DAY [AttnRPh:Saving Apply/Adjudicate RxGRP:LDMGRP RxBIN:[id number] RxPCN:2012 PCode:01 ID#:[id number]] Symbicort 160 mcg-4.5 mcg/actuation HFA aerosol inhaler RxNo rm: 7016051 2 Puff(s) INH BID 04/24/2014 11/12/2014 Inactive INHALE 2 PUFFS O RALLY TWO TIMES A DAY Premarin 0.9 mg tablet RxNorm: 960828 1 Tablet(s) PO QD 04/24/2014 Inactive TAKE ONE TABLET BY MOUTH EVERY DAY metformin ER 500 mg tablet,extended release 24 hr RxNorm: 86 0975 1 Tablet(s) PO QD Needs labs 04/24/2014 06/18/2014 Inactive TAKE ONE TABLET BY MOUTH EVERY DAY [AttnRPh:Saving Apply/Adjudicate RxGRP:LDMGRP RxBIN:[id number] RxPCN:2012 PCode:01 ID#:[id number]] gabapentin 800 mg tablet RxNorm: 052065 1 Tablet(s) PO QD 04/24/2014 10/04/2014 Inactive TAKE ONE TABLET BY MOUTH EVERY DAY Topamax 100 mg tablet RxNorm: 652999 1 Tablet(s) PO QHS 04/17/2014 Inactive Topamax 100 mg tablet RxNorm: 599358 TAKE ONE TABLET BY MOUTH A T BEDTIME 04/17/2014 07/01/2014 Inactive Tudorza Pressair 400 mcg/actuation breath activated RxNorm: 1340593 1 Puff(s) INH BID 04/11/2014 07/02/2014 Inactive Duragesic 100 mcg/hr transdermal patch RxNorm: 396488 2 Application TD Q48H for pain 03/27/2014 04/24/2014 Inactive Endocet 10 mg-325 mg tablet RxNorm: 5376939 1-2 Tablet(s) PO Q4H 04/24/2014 Inactive PRN PAIN Robaxin 750 mg tablet RxNorm: 349909 2 Tablet(s) PO TID as need ed for spasm 02/23/2014 03/28/2015 Inactive Duragesic 100 mcg/hr transdermal patch RxNorm: 256982 2 Application TD Q48H for pain 02/23/2014 No Stop Date Active Endocet 10 mg-325 mg tablet RxNorm: 4287754 1-2 Tablet(s) PO Q4H 03/23/2014 Inactive PRN PAIN Synthroid 112 mcg tablet RxNorm: 235932 1 Tablet(s) PO QD TAKE ONE TABLET BY MOUTH EVERY DAY 02/15/2014 05/22/2014 Inactive Zithromax 500 mg tablet RxNorm: 352146 1 Tablet(s) PO QD 01/30/2014 0 02/05/2014 Inactive Diflucan 100 mg tablet RxNorm: 120901 1 Tablet(s) PO QD 01/30/2014 Inactive prednisone 20 mg tablet RxNorm: 493726 1 Tablet(s) PO BID 01/30/2014 02/05/2014 Inactive fluoxetine 40 mg capsule RxNorm: 413380 1 Capsule(s) PO QD 01/23/20 14 07/16/2014 Inactive TAKE ONE CAPSULE BY MOUTH EV JANKI MORNING fluoxetine 40 mg capsule RxNorm: 871956 1 Capsule(s) PO QD 01/23/20 14 07/17/2014 Inactive TAKE ONE CAPSULE BY MOUTH EV JANKI MORNING cefdinir 300 mg capsule RxNorm: 364497 1 Capsule(s) PO BID 01/16/20 14 01/29/2014 Inactive Zithromax 500 mg tablet RxNorm: 450699 1 Tablet(s) PO QD 01/16/2014 0 01/22/2014 Inactive prednisone 20 mg tablet RxNorm: 139363 1 Tablet(s) PO BID 01/16/2014 01/22/2014 Inactive Spiriva with HandiHaler 18 mcg and inhalation capsules RxNor m: 267822 1 Capsule(s) INH QD 12/18/2013 07/17/2014 Inactive INHALE CONTENT S OF 1 CAPSULE(S) WITH HANDIHALER ONCE DAILY fluoxetine 20 mg capsule RxNorm: 925762 1 Capsule(s) PO QD 12/18/19 14 06/15/2014 Inactive Spiriva with HandiHaler 18 mcg & inhalation capsules RxNorm: 068604 1 Capsule(s) INH QD 12/18/2013 06/15/2014 Inactive INHALE CONTENTS OF 1 CAPSULE(S) WITH HANDIHALER ONCE DAILY fluoxetine 20 mg capsule RxNorm: 545487 1 Capsule(s) PO QD 12/18/19 14 07/17/2014 Inactive cefdinir 300 mg capsule RxNorm: 259556 2 Capsule(s) PO QD 12/12/2013 12/21/2013 Inactive Duragesic 100 mcg/hr transdermal patch RxNorm: 236317 2 Application TD Q48H for pain 12/08/2013 12/07/2013 Inactive Topamax 100 mg tablet RxNorm: 888206 1 Tablet(s) PO QHS 12/04/2013 Inactive Endocet 10 mg-325 mg tablet RxNorm: 2459075 1-2 Tablet(s) PO Q4H 12/26/2013 Inactive PRN PAIN Robaxin 750 mg tablet RxNorm: 480187 2 Tablet(s) PO TID as need ed for spasm 11/07/2013 01/05/2014 Inactive gabapentin 800 mg tablet RxNorm: 492261 1 Tablet(s) PO QD 10/16/2013 04/24/2014 Inactive TAKE ONE TABLET BY MOUTH EVERY DAY Symbicort 160 mcg-4.5 mcg/actuation HFA aerosol inhaler RxNo rm: 7552643 2 Puff(s) INH BID 10/16/2013 04/24/2014 Inactive INHALE 2 PUFFS O RALLY TWO TIMES A DAY Premarin 0.9 mg tablet RxNorm: 932400 1 Tablet(s) PO QD 10/16/2013 Inactive TAKE ONE TABLET BY MOUTH EVERY DAY metformin ER 500 mg tablet,extended release 24 hr RxNorm: 86 0975 1 Tablet(s) PO QD 10/16/2013 04/24/2014 Inactive TAKE ONE TABLET BY MOUTH EVERY DAY Daliresp 500 mcg tablet RxNorm: 7277093 1 Tablet(s) PO QD 10/16/2013 04/24/2014 Inactive Robaxin 750 mg tablet RxNorm: 737823 2 Tablet(s) PO TID as need ed for spasm 10/10/2013 11/06/2013 Inactive Duragesic 100 mcg/hr transdermal patch RxNorm: 446717 2 Application TD Q48H for pain 10/09/2013 No Stop Date Active Soma 350 mg tablet RxNorm: 989760 1 Tablet(s) PO TID 09/27/201310/09 Inactive TAKE ONE TABLET BY MOUTH THREE TIMES A D AY lactulose 10 gram/15 mL oral solution RxNorm: 248184 [address](s) PO QD 09/13/2013 03/07/2015 Inactive TAKE 1 TABLESPOON BY MOUTH ONCE DAILY Duragesic 100 mcg/hr transdermal patch RxNorm: 241569 2 Application TD Q48H for pain 09/06/2013 No Stop Date Active Endocet 10 mg-325 mg tablet RxNorm: 7588000 1-2 Tablet(s) PO Q4H 09/27/2013 Inactive PRN PAIN lancets 28 gauge RxNorm: Miscellaneous As needed for blo od glucose sticks 08/24/2013 No Stop Date Active 16.2 mg-0.1037 mg-0.0194 mg tablet RxNorm: 6182673 Tablet(s) PO PRN for gas and cramping 08/24/2013 01/19/2017 Inactive TAKE TWO TABLET S BY MOUTH THREE TIMES A DAY NEEDED FOR GAS AND CRAMPING Topamax 100 mg tablet RxNorm: 052133 1 Tablet(s) PO QHS 07/31/2013 Inactive Diflucan 100 mg tablet RxNorm: 402011 1 Tablet(s) PO QD 07/27/2013 Inactive cefdinir 300 mg capsule RxNorm: 949351 1 Capsule(s) PO BID 07/26/20 13 08/08/2013 Inactive Daliresp 500 mcg tablet RxNorm: 1665269 1 Tablet(s) PO QD 07/25/2013 10/15/2013 Inactive fluoxetine 40 mg capsule RxNorm: 804084 1 Capsule(s) PO QD 07/25/20 13 01/22/2014 Inactive TAKE ONE CAPSULE BY MOUTH EV JANKI MORNING Senokot-S 8.6 mg-50 mg tablet RxNorm: 9175360 1 Tablet(s) PO BID 10/25/2013 Inactive doxycycline hyclate 100 mg capsule RxNorm: 0594417 1 Capsule(s) PO BID 06/28/2013 07/07/2013 Inactive prednisone 20 mg tablet RxNorm: 955432 1 Tablet(s) PO BID 06/28/2013 07/04/2013 Inactive Zofran 4 mg tablet RxNorm: 246828 1 Tablet(s) PO Q4H prn nausea 03/201307/05/2013 Inactive Spiriva with HandiHaler 18 mcg & inhalation capsules RxNorm: 075138 1 Capsule(s) INH QD 06/26/2013 12/18/2013 Inactive INHALE CONTENTS OF 1 CAPSULE(S) WITH HANDIHALER ONCE DAILY Synthroid 112 mcg tablet RxNorm: 370591 1 Tablet(s) PO QD TAKE ONE TABLET BY MOUTH EVERY DAY 06/19/2013 02/15/2014 Inactive fluoxetine 20 mg capsule RxNorm: 915062 1 Capsule(s) PO QD 06/19/20 13 12/18/2013 Inactive Ventolin HFA 90 mcg/actuation Aerosol Inhaler RxNorm: 4185449 2 Puff(s) INH Q4H 06/05/2013 No Stop Date Active prn Soma 350 mg tablet RxNorm: 154608 1 Tablet(s) PO TID 06/05/201307/04 Inactive TAKE ONE TABLET BY MOUTH THREE TIMES A D AY prednisone 20 mg tablet RxNorm: 222679 1 Tablet(s) PO QD 05/31/2013 0 06/06/2013 Inactive Topamax 100 mg tablet RxNorm: 073710 1 Tablet(s) PO QHS 05/22/2013 Inactive Levaquin 500 mg tablet RxNorm: 945285 1 Tablet(s) PO QD 05/03/2013 Inactive Diflucan 100 mg tablet RxNorm: 538456 1 Tablet(s) PO QD 05/03/2013 Inactive Daliresp 500 mcg tablet RxNorm: 6273953 1 Tablet(s) PO QD 05/01/2013 07/24/2013 Inactive Daliresp 500 mcg tablet RxNorm: 4883861 1 Tablet(s) PO QD 05/01/2013 04/30/2013 Inactive gabapentin 800 mg tablet RxNorm: 311718 1 Tablet(s) PO QD 04/10/2013 10/06/2013 Inactive TAKE ONE TABLET BY MOUTH EVERY DAY metformin ER 500 mg tablet,extended release 24 hr RxNorm: 86 0977 1 Tablet(s) PO QD 04/10/2013 10/06/2013 Inactive TAKE ONE TABLET BY MOUTH EVERY DAY Premarin 0.9 mg tablet RxNorm: 056673 1 Tablet(s) PO QD 04/10/2013 Inactive TAKE ONE TABLET BY MOUTH EVERY DAY Symbicort 160 mcg-4.5 mcg/actuation HFA aerosol inhaler RxNo rm: 5967174 2 Puff(s) INH BID 04/10/2013 10/06/2013 Inactive INHALE 2 PUFFS O RALLY TWO TIMES A DAY Synthroid 112 mcg tablet RxNorm: 491702 1 Tablet(s) PO QD TAKE ONE TABLET BY MOUTH EVERY DAY 04/10/2013 06/18/2013 Inactive Ventolin HFA 90 mcg/actuation Aerosol Inhaler RxNorm: 689072 2 Puff(s) INH Q4H 04/10/2013 No Stop Date Active prn fentanyl 100 mcg/hr transdermal patch RxNorm: 212782 1 Unit Dos e TD QD 04/03/2013 05/02/2013 Inactive Endocet 10 mg-325 mg tablet RxNorm: 2334863 1-2 Tablet(s) PO Q4H 05/02/2013 Inactive PRN PAIN Topamax 100 mg tablet RxNorm: 328325 1 Tablet(s) PO QHS 03/13/2013 Inactive Reglan 10 mg tablet RxNorm: 368562 1 Tablet(s) PO QID b efore meals and at bedtime 03/13/2013 04/09/2015 Inactive fluoxetine 20 mg capsule RxNorm: 877508 1 Capsule(s) PO QD 02/28/20 13 05/27/2013 Inactive Ventolin HFA 90 mcg/actuation Aerosol Inhaler RxNorm: 035092 2 Puff(s) INH Q4H 02/13/2013 No Stop Date Active prn fluoxetine 40 mg capsule RxNorm: 838291 1 Capsule(s) PO QD 01/31/20 13 07/24/2013 Inactive TAKE ONE CAPSULE BY MOUTH EV JANKI MORNING Soma 350 mg tablet RxNorm: 908202 1 Tablet(s) PO TID 01/20/201302/18 Inactive TAKE ONE TABLET BY MOUTH THREE TIMES A D AY Endocet 10 mg-325 mg tablet RxNorm: 0739583 1-2 Tablet(s) PO Q4H 02/06/2013 Inactive PRN PAIN MS Contin 200 mg tablet,extended release RxNorm: 482701 1 Table t(s) PO BID 01/18/2013 02/06/2013 Inactive Ventolin HFA 90 mcg/actuation Aerosol Inhaler RxNorm: 573854 2 Puff(s) INH Q4H 01/04/2013 No Stop Date Active prn Spiriva with HandiHaler 18 mcg & inhalation capsules RxNorm: 256077 1 Capsule(s) INH QD 12/29/2012 06/25/2013 Inactive INHALE CONTENTS OF 1 CAPSULE(S) WITH HANDIHALER ONCE DAILY Spiriva with HandiHaler 18 mcg & inhalation capsules RxNorm: 287326 1 Capsule(s) INH QD 12/26/2012 12/28/2012 Inactive INHALE CONTENTS OF 1 CAPSULE(S) WITH HANDIHALER ONCE DAILY Synthroid 112 mcg tablet RxNorm: 965225 Tablet(s) PO TA KE ONE TABLET BY MOUTH EVERY DAY 12/26/2012 04/09/2013 Inactive Endocet 10 mg-325 mg tablet RxNorm: 4871797 1-2 Tablet(s) PO Q4H 01/17/2013 Inactive PRN PAIN MS Contin 200 mg tablet,extended release RxNorm: 281860 1 Table t(s) PO BID 12/21/2012 01/17/2013 Inactive fluoxetine 20 mg capsule RxNorm: 939754 1 Capsule(s) PO QD 12/06/19 13 02/26/2013 Inactive Synthroid 112 mcg tablet RxNorm: 438252 1 Tablet(s) PO QD 12/06/2012 02/12/2019 Inactive TAKE ONE TABLET BY MOUTH EVERY DAY Ventolin HFA 90 mcg/actuation Aerosol Inhaler RxNorm: 741178 2 Puff(s) INH Q4H 12/06/2012 No Stop Date Active prn Reglan 10 mg tablet RxNorm: 664869 1 Tablet(s) PO QID b efore meals and at bedtime 11/24/2012 03/12/2013 Inactive Topamax 100 mg tablet RxNorm: 654981 1 Tablet(s) PO QHS 11/16/2012 Inactive Ventolin HFA 90 mcg/actuation Aerosol Inhaler RxNorm: 764927 2 Puff(s) INH Q4H 11/09/2012 No Stop Date Active prn gabapentin 800 mg tablet RxNorm: 404186 1 Tablet(s) PO QD 10/27/2012 04/09/2013 Inactive TAKE ONE TABLET BY MOUTH EVERY DAY metformin ER 500 mg tablet,extended release 24 hr RxNorm: 86 0977 1 Tablet(s) PO QD 10/27/2012 04/09/2013 Inactive TAKE ONE TABLET BY MOUTH EVERY DAY Symbicort 160 mcg-4.5 mcg/actuation HFA Aerosol Inhaler RxNo rm: 7320805 2 Puff(s) INH BID 10/27/2012 04/09/2013 Inactive INHALE 2 PUFFS O RALLY TWO TIMES A DAY Premarin 0.9 mg tablet RxNorm: 894274 1 Tablet(s) PO QD 10/27/2012 Inactive TAKE ONE TABLET BY MOUTH EVERY DAY Endocet 10 mg-325 mg tablet RxNorm: 5978082 1-2 Tablet(s) PO Q4H 11/24/2012 Inactive PRN PAIN MS Contin 200 mg tablet,extended release RxNorm: 890542 1 Table t(s) PO BID 10/26/2012 11/24/2012 Inactive Soma 350 mg tablet RxNorm: 322088 1 Tablet(s) PO TID 10/04/201211/02 Inactive TAKE ONE TABLET BY MOUTH THREE TIMES A D AY Ventolin HFA 90 mcg/actuation Aerosol Inhaler RxNorm: 012196 2 Puff(s) INH Q4H 10/03/2012 No Stop Date Active prn Daliresp 500 mcg tablet RxNorm: 7693610 1 Tablet(s) PO QD 09/28/2012 09/27/2012 Inactive Daliresp 500 mcg tablet RxNorm: 3664652 1 Tablet(s) PO QD 09/28/2012 04/25/2013 Inactive fluoxetine 20 mg capsule RxNorm: 625724 1 Capsule(s) PO QD 09/05/20 12 12/06/2012 Inactive Topamax 50 mg tablet RxNorm: 153556 Tablet(s) PO for 1w k then 1 po q HS for 1wk then 2 po q HS 08/29/2012 09/27/2012 Inactive TAKE 1/2 TABLET BY MOUTH AT BEDTIME FOR 1 WEEK, THEN 1 TABLET AT BEDTIME FOR 1 WEEK, THEN 2 TABLETS AT BEDTIME Topamax 100 mg tablet RxNorm: 465662 1 Tablet(s) PO QHS 08/29/2012 Inactive Ventolin HFA 90 mcg/actuation Aerosol Inhaler RxNorm: 836749 2 Puff(s) INH Q4H 08/19/2012 No Stop Date Active prn Ventolin HFA 90 mcg/actuation Aerosol Inhaler RxNorm: 468289 2 Puff(s) INH Q4H 08/15/2012 No Stop Date Active prn Synthroid 112 mcg tablet RxNorm: 307592 1 Tablet(s) PO QD 08/10/2012 11/07/2012 Inactive TAKE ONE TABLET BY MOUTH EVERY DAY Synthroid 112 mcg tablet RxNorm: 489749 1 Tablet(s) PO QD 08/01/2012 08/09/2012 Inactive TAKE ONE TABLET BY MOUTH EVERY DAY Reglan 10 mg tablet RxNorm: 174653 1 Tablet(s) PO QID b efore meals and at bedtime 08/01/2012 11/23/2012 Inactive fluoxetine 40 mg capsule RxNorm: 930349 1 Capsule(s) PO QD 08/01/20 12 01/27/2013 Inactive TAKE ONE CAPSULE BY MOUTH EV JANKI MORNING Ventolin HFA 90 mcg/actuation Aerosol Inhaler RxNorm: 272714 2 Puff(s) INH Q4H 08/01/2012 No Stop Date Active prn Soma 350 mg tablet RxNorm: 607917 1 Tablet(s) PO TID 07/20/201208/18 Inactive TAKE ONE TABLET BY MOUTH THREE TIMES A D AY Spiriva with HandiHaler 18 mcg & inhalation capsules RxNorm: 099761 1 Capsule(s) INH 07/01/2012 12/25/2012 Inactive INHALE CONTENTS OF 1 CAPSULE(S) WITH HANDIHALER ONCE DAILY Zithromax 250 mg Tab RxNorm: 462609 2 Tablet(s) PO QD 06/28/201206/22 Inactive MS Contin 200 mg tablet,extended release RxNorm: 644262 1 Table t(s) PO BID 06/28/2012 07/27/2012 Inactive Endocet 10 mg-325 mg tablet RxNorm: 0871217 1-2 Tablet(s) PO Q4H 07/27/2012 Inactive PRN PAIN Topamax 100 mg tablet RxNorm: 623365 1 Tablet(s) PO QHS 06/28/2012 Inactive 16.2 mg-0.1037 mg-0.0194 mg tablet RxNorm: 5972432 Tablet(s) PO PRN for gas and cramping 06/08/2012 08/23/2013 Inactive TAKE TWO TABLET S BY MOUTH THREE TIMES A DAY NEEDED FOR GAS AND CRAMPING Ventolin HFA 90 mcg/actuation Aerosol Inhaler RxNorm: 113324 2 Puff(s) INH Q4H 05/23/2012 No Stop Date Active prn Ventolin HFA 90 mcg/actuation Aerosol Inhaler RxNorm: 872210 2 Puff(s) INH Q4H 05/11/2012 No Stop Date Active prn Synthroid 112 mcg tablet RxNorm: 157147 1 Tablet(s) PO QD 05/09/2012 07/31/2012 Inactive TAKE ONE TABLET BY MOUTH EVERY DAY gabapentin 800 mg tablet RxNorm: 740219 1 Tablet(s) PO QD 05/09/2012 10/26/2012 Inactive TAKE ONE TABLET BY MOUTH EVERY DAY fluoxetine 40 mg capsule RxNorm: 222477 1 Capsule(s) PO QD 05/09/2007/31/2012 Inactive TAKE ONE CAPSULE BY MOUTH EV JANKI MORNING metformin ER 500 mg tablet,extended release 24 hr RxNorm: 86 0977 1 Tablet(s) PO QD 05/09/2012 10/26/2012 Inactive TAKE ONE TABLET BY MOUTH EVERY DAY Premarin 0.9 mg tablet RxNorm: 277270 1 Tablet(s) PO QD 05/09/2012 Inactive TAKE ONE TABLET BY MOUTH EVERY DAY Symbicort 160 mcg-4.5 mcg/actuation HFA Aerosol Inhaler RxNo rm: 9278088 2 Puff(s) INH BID 05/09/2012 10/26/2012 Inactive INHALE 2 PUFFS O RALLY TWO TIMES A DAY Endocet 10 mg-325 mg Tab RxNorm: 4168825 1-2 Tablet(s) PO Q4H 04/2705/26/2012 Inactive PRN PAIN MS Contin 200 mg Tab RxNorm: 875142 1 Tablet(s) PO BID 04/26/201202/2012 Inactive Ventolin HFA 90 mcg/actuation Aerosol Inhaler RxNorm: 383501 2 Puff(s) INH Q4H 04/25/2012 05/10/2012 Inactive prn Soma 350 mg tablet RxNorm: 060549 2 Tablet(s) PO TID 04/19/201207/19 Inactive TAKE ONE TABLET BY MOUTH THREE TIMES A D AY Ventolin HFA 90 mcg/actuation Aerosol Inhaler RxNorm: 081504 2 Puff(s) INH Q4H 04/12/2012 04/24/2012 Inactive prn Reglan 10 mg tablet RxNorm: 695973 1 Tablet(s) PO QID b efore meals and at bedtime 04/11/2012 07/31/2012 Inactive MS Contin 200 mg Tab RxNorm: 152660 1 Tablet(s) PO BID 03/30/201202/2012 Inactive Endocet 10 mg-325 mg Tab RxNorm: 0379419 1-2 Tablet(s) PO Q4H 03/3004/26/2012 Inactive PRN PAIN MS Contin 200 mg Tab RxNorm: 347605 1 Tablet(s) PO BID 03/02/201206/2012 Inactive Endocet 10 mg-325 mg Tab RxNorm: 7188231 1-2 Tablet(s) PO Q4H 03/0203/29/2012 Inactive PRN PAIN Daliresp 500 mcg tablet RxNorm: 5911555 1 Tablet(s) PO QD 03/01/2012 09/28/2012 Inactive MS Contin 200 mg Tab RxNorm: 537499 1 Tablet(s) PO BID 02/02/201208/2012 Inactive Endocet 10 mg-325 mg Tab RxNorm: 2837476 1-2 Tablet(s) PO Q4H 02/0103/01/2012 Inactive PRN PAIN fluoxetine 40 mg capsule RxNorm: 553916 1 Capsule(s) PO QD 02/02/2008/01/2012 Inactive TAKE ONE CAPSULE BY MOUTH EV JANKI MORNING Synthroid 112 mcg Tab RxNorm: 313546 1 Tablet(s) PO QD 01/18/2012 Inactive TAKE ONE TABLET BY MOUTH EVERY DAY lactulose 10 gram/15 mL oral solution RxNorm: 199878 [address]s) PO QD 01/18/2012 No Stop Date Active TAKE 1 TABLESPOON BY MOUTH ONCE DAILY Ventolin HFA 90 mcg/actuation Aerosol Inhaler RxNorm: 338803 2 Puff(s) INH Q4H 01/18/2012 04/11/2012 Inactive prn MS Contin 200 mg Tab RxNorm: 451756 1 Tablet(s) PO BID 01/05/201210/2012 Inactive Endocet 10 mg-325 mg Tab RxNorm: 6271204 1-2 Tablet(s) PO Q4H 01/0502/01/2012 Inactive PRN PAIN ProAir HFA 90 mcg/Actuation Aerosol Inhaler RxNorm: 400657 2 Pu ff(s) INH Q4H 12/21/2011 No Stop Date Active prn for wheezing or shortness of breath Spiriva with HandiHaler 18 mcg & inhalation Caps RxNorm: 580 261 1 Capsule(s) INH 12/21/2011 06/30/2012 Inactive INHALE CONTENTS OF 1 CAPSULE(S) WITH HANDIHALER ONCE DAILY Reglan 10 mg Tab RxNorm: 251686 1 Tablet(s) PO QID before meals and at bedtime 12/21/2011 04/10/2012 Inactive Synthroid 112 mcg Tab RxNorm: 357660 1 Tablet(s) PO QD 12/21/2011 Inactive TAKE ONE TABLET BY MOUTH EVERY DAY Endocet 10 mg-325 mg Tab RxNorm: 2182298 1-2 Tablet(s) PO Q4H 11/2512/24/2011 Inactive PRN PAIN MS Contin 200 mg Tab RxNorm: 010480 1 Tablet(s) PO BID 11/25/201112/2011 Inactive lactulose 10 gram/15 mL Oral Soln RxNorm: 798360 Milliliter(s) PO 1 No Stop Date Active TAKE 1 TABLESPOON BY MOUTH O NCE DAILY lactulose 10 gram/15 mL Oral Soln RxNorm: 977892 Milliliter(s) PO 1 12/12/2010 11/20/2011 Inactive TAKE 1 TABLESPOON BY MOUTH O NCE DAILY Premarin 0.9 mg Tab RxNorm: 445669 1 Tablet(s) PO QD 10/12/201105/08 Inactive TAKE ONE TABLET BY MOUTH EVERY DAY fluoxetine 20 mg capsule RxNorm: 814721 1 Capsule(s) PO QD 10/12/2009/05/2012 Inactive TAKE ONE CAPSULE BY MOUTH EV JANKI DAY Synthroid 112 mcg Tab RxNorm: 709062 1 Tablet(s) PO QD 10/12/2011 Inactive TAKE ONE TABLET BY MOUTH EVERY DAY metformin ER 500 mg 24 hr Tab RxNorm: 760071 1 Tablet(s) PO QD 09/2311/10/2011 Inactive TAKE ONE TABLET BY MOUTH GLYNN RY DAY Synthroid 112 mcg Tab RxNorm: 779458 1 Tablet(s) PO QD 10/12/2011 Inactive TAKE ONE TABLET BY MOUTH EVERY DAY metformin ER 500 mg 24 hr Tab RxNorm: 830769 1 Tablet(s) PO QD 09/2310/11/2011 Inactive TAKE ONE TABLET BY MOUTH GLYNN RY DAY Prevacid 30 mg Cap RxNorm: 844986 Capsule(s) PO 10/12/2011 01/25/2012 Inactive TAKE ONE CAPSULE BY MOUTH EVERY DAY Symbicort 160 mcg-4.5 mcg/actuation HFA Aerosol Inhaler RxNo rm: 9616755 2 Puff(s) INH BID 10/12/2011 05/08/2012 Inactive INHALE 2 PUFFS O RALLY TWO TIMES A DAY gabapentin 800 mg Tab RxNorm: 539558 1 Tablet(s) PO QD 10/12/2011 Inactive TAKE ONE TABLET BY MOUTH EVERY DAY MS Contin 200 mg Tab RxNorm: 312904 1 Tablet(s) PO BID 09/23/201111/2010 Inactive Endocet 10 mg-325 mg Tab RxNorm: 8390966 1-2 Tablet(s) PO Q4H 09/2310/22/2011 Inactive PRN PAIN Endocet 10 mg-325 mg Tab RxNorm: 1070779 1-2 Tablet(s) PO Q4H 08/2109/19/2011 Inactive PRN PAIN MS Contin 200 mg Tab RxNorm: 098957 1 Tablet(s) PO BID 08/21/2011 Inactive Diflucan 100 mg Tab RxNorm: 539169 1 Tablet(s) PO QD 08/10/201108/16 Inactive cefdinir 300 mg Cap RxNorm: 912174 2 Capsule(s) PO QD 08/10/201107/24 Inactive Reglan 10 mg Tab RxNorm: 007539 1 Tablet(s) PO AC & HS 07/15/2011 Inactive Endocet 10 mg-325 mg Tab RxNorm: 6302970 1-2 Tablet(s) PO Q4H 07/1508/13/2011 Inactive PRN PAIN One Touch Ultra Test strips RxNorm: Miscellaneous BID 06/11/2011 1 01/16/2014 Inactive TEST TWO TIMES A DAY lactulose 10 gram/15 mL Oral Soln RxNorm: 665264 Milliliter(s) PO 0 06/10/2011 10/11/2011 Inactive TAKE 1 TABLESPOON BY MOUTH O NCE DAILY Chantix Continuing Month Aníbal 1 mg Tab RxNorm: 908982 Tablet(s) PO 0 06/10/2011 11/02/2011 Inactive TAKE DIRECTED - PER PACK[employer] GE INSTRUCTIONS fluoxetine 40 mg Cap RxNorm: 788835 Capsule(s) PO 06/10/2011 02/02/20 12 Inactive TAKE ONE CAPSULE BY MOUTH EVERY MORNING Chantix Continuing Month Aníbal 1 mg Tab RxNorm: 245127 Ta blet(s) PO TAKE DIRECTED - PER PACKAGE INSTRUCTIONS 05/13/2011 06/09/2011 Inactive Soma 350 mg Tab RxNorm: 746307 Tablet(s) PO TAKE ON E TABLET BY MOUTH THREE TIMES A DAY 05/13/2011 04/18/2012 Inactive Chantix Continuing Month Aníbal 1 mg Tab RxNorm: 763574 Ta blet(s) PO as directed per package instructions. 04/22/2011 05/12/2011 Inactive Symbicort 160 mcg-4.5 mcg/Actuation HFA Aerosol Inhaler RxNo rm: [id number] HFA Aerosol Inhaler INH INHALE 2 PUFFS ORALLY TWO TIMES A DAY 04/13/2011 Inactive Synthroid 112 mcg Tab RxNorm: 944524 Tablet(s) PO TAKE ONE TABLET BY MOUTH EVERY DAY 04/13/2011 10/12/2011 Inactive Premarin 0.9 mg Tab RxNorm: 033057 Tablet(s) PO TAKE ON E TABLET BY MOUTH EVERY DAY 04/13/2011 10/12/2011 Inactive gabapentin 800 mg Tab RxNorm: 905925 Tablet(s) PO TAKE ONE TABLET BY MOUTH EVERY DAY 04/13/2011 10/12/2011 Inactive Prevacid 30 mg Cap RxNorm: 368014 1 Capsule(s) PO QD 04/13/201110/11 Inactive Spiriva with HandiHaler 18 mcg & inhalation Caps RxNorm: 580 261 Capsule(s) INH INHALE CONTENTS OF 1 CAPSULE(S) WITH HANDIHALER ONCE DAILY 04/13/2011 12/21/2011 Inactive metformin ER 500 mg 24 hr Tab RxNorm: 292764 Tablet(s) PO TAKE ONE TABLET BY MOUTH EVERY DAY 04/13/2011 10/12/2011 Inactive Soma 350 mg Tab RxNorm: 763069 1 Tablet(s) PO QID 03/30/2011 02/13/20 19 Inactive fluoxetine 20 mg Cap RxNorm: 141072 Capsule(s) PO TAKE ONE CAPSULE BY MOUTH EVERY DAY 03/25/2011 10/12/2011 Inactive cefdinir 300 mg Cap RxNorm: 580643 2 Capsule(s) PO QD 03/19/201105/2011 Inactive 16.2 mg-0.1037 mg-0.0194 mg Tab RxNorm: 1515749 2 Tablet(s) PO TID PRN for gas and cramping 03/16/2011 07/13/2011 Inactive Soma 350 mg Tab RxNorm: 681612 2 Tablet(s) PO TID 03/16/2011 03/29/20 11 Inactive Chantix Starting Month Aníbal 0.5 mg (11)-1 mg (3x14) Tab s in a Dose Pack RxNorm: 914792 Tablet(s) PO as directed 03/02/2011 No Stop Date Active diazepam 10 mg Tab RxNorm: 536823 1 Tablet(s) PO BID 02/10/201101/19 Inactive Zofran 4 mg tablet RxNorm: 587263 1 Tablet(s) PO Q4H prn nausea 02/16/2011 Inactive Diflucan 100 mg Tab RxNorm: 434211 1 Tablet(s) PO QD 01/18/201101/24 Inactive Premarin 0.625 mg/g Vaginal Cream RxNorm: 325239 VAG In sert 1gm vaginally at bedtime 3 times weekly 01/18/2011 02/12/2019 Inactive loratadine 10 mg Tab RxNorm: 2483503 1 Tablet(s) PO QD 12/17/201003/2012 Inactive Spiriva with HandiHaler 18 mcg & inhalation Caps RxNorm: 580 261 1 Capsule(s) INH QD 12/17/2010 04/12/2011 Inactive Diflucan 100 mg Tab RxNorm: 753169 1 Tablet(s) PO QD 12/17/201012/23 Inactive diazepam 10 mg Tab RxNorm: 857263 1 Tablet(s) PO BID and PRN 201002/12/2019 Inactive One Touch Ultra Test Strips RxNorm: InVt BID Zainab t blood sugar at least twice daily. 11/11/2010 06/11/2011 Inactive fluoxetine 40 mg Cap RxNorm: 998529 1 Capsule(s) PO QAM 11/11/2010 Inactive diazepam 10 mg Tab RxNorm: 450558 1 Tablet(s) PO BID and PRN 200911/12/2010 Inactive Bactrim DS 800 mg-160 mg Tab RxNorm: 124020 1 Tablet(s) PO BID 09/2210/15/2010 Inactive fluoxetine 20 mg Cap RxNorm: 973757 1 Capsule(s) PO QD 10/02/201008/2011 Inactive Bactrim DS 800 mg-160 mg Tab RxNorm: 173615 1 Tablet(s) PO BID 01/201010/03/2010 Inactive Zofran 4 mg Tab RxNorm: 156995 1 Tablet(s) PO Q4H prn nausea 200910/16/2010 Inactive 16.2 mg-0.1037 mg-0.0194 mg Tab RxNorm: 4365943 2 Tablet(s) PO TID PRN for gas and cramping 09/17/2010 10/21/2010 Inactive Gabapentin 800 mg Tab RxNorm: 859861 1 Tablet(s) PO QD 09/16/2010 Inactive ProAir HFA 90 mcg/Actuation Aerosol Inhaler RxNorm: 773201 2 Puff(s) INH Q4H prn shortness of breath 09/15/2010 12/13/2010 Inactive gabapentin 800 mg Tab RxNorm: 620816 1 Tablet(s) PO QD 09/15/2010 Inactive Prevacid 30 mg Cap RxNorm: 866032 1 Capsule(s) PO QD 09/15/201004/12 Inactive loratadine 10 mg Tab RxNorm: 3142950 1 Tablet(s) PO QD 09/15/2010 Inactive Premarin 0.9 mg Tab RxNorm: 403604 1 Tablet(s) PO QD 09/15/201004/12 Inactive Synthroid 112 mcg Tab RxNorm: 951380 1 Tablet(s) PO QD 09/15/2010 Inactive metformin ER 500 mg 24 hr Tab RxNorm: 379873 1 Tablet(s) PO QD 08/2304/12/2011 Inactive Symbicort 160 mcg-4.5 mcg/Actuation Inhalation HFA Aer osol Inhaler RxNorm: 0529304 2 Puff(s) INH BID 09/15/2010 04/12/2011 Inactive diazepam 10 mg Tab RxNorm: 050411 1 Tablet(s) PO BID and PRN 200910/13/2010 Inactive Phentermine 37.5 mg Cap RxNorm: 343630 1 Capsule(s) PO QD 09/02/2010 11/02/2011 Inactive ProAir HFA 90 mcg/Actuation Aerosol Inhaler RxNorm: 061486 2 Puff(s) INH Q4H prn shortness of breath 08/07/2010 No Stop Date Active Premarin 0.9 mg Tab RxNorm: 277357 1 Tablet(s) PO QD 08/07/201009/14 Inactive Loratadine 10 mg Tab RxNorm: 5533503 1 Tablet(s) PO QD 08/07/2010 Inactive Lactulose 10 gram/15 mL Oral Soln RxNorm: 385983 1 Unit Dose PO QD 08/07/2010 02/12/2019 Inactive Zofran 4 mg Tab RxNorm: 359138 1 Tablet(s) PO Q4H prn nausea 2009 No Stop Date Active Gabapentin 800 mg Tab RxNorm: 370026 1 Tablet(s) PO QD 08/07/2010 Inactive Synthroid 112 mcg Tab RxNorm: 875583 1 Tablet(s) PO QD 08/07/2010 Inactive Metformin ER 500 mg 24 hr Tab RxNorm: 661238 1 Tablet(s) PO QD 07/2309/14/2010 Inactive Vitamin D 1,000 unit Tab RxNorm: 671323 1 Tablet(s) PO TID 08/07/2002/12/2019 Inactive Symbicort 160 mcg-4.5 mcg/Actuation Inhalation HFA Aer osol Inhaler RxNorm: 9950928 2 Puff(s) INH BID 08/07/2010 09/14/2010 Inactive Prevacid 30 mg Cap RxNorm: 492332 1 Capsule(s) PO QD 08/07/201009/14 Inactive Metformin ER 500 mg 24 hr Tab RxNorm: 763723 1 Tablet(s) PO QD 06/2308/06/2010 Inactive Vitamin D 1,000 unit Tab RxNorm: 108542 1 Tablet(s) PO TID 07/14/2008/06/2010 Inactive Synthroid 112 mcg Tab RxNorm: 592496 1 Tablet(s) PO QD 07/14/2010 Inactive Lactulose 10 gram/15 mL Oral Soln RxNorm: 280386 1 Unit Dose PO QD 07/14/2010 08/06/2010 Inactive Levaquin 500 mg Tab RxNorm: 861349 1 Tablet(s) PO QD 07/14/201007/27 Inactive Premarin 0.9 mg Tab RxNorm: 571670 1 Tablet(s) PO QD 07/14/201008/06 Inactive ProAir HFA 90 mcg/Actuation Aerosol Inhaler RxNorm: 360768 2 Puff(s) INH Q4H prn shortness of breath 07/14/2010 No Stop Date Active Prevacid 30 mg Cap RxNorm: 262004 1 Capsule(s) PO QD 07/14/201008/06 Inactive Zofran 4 mg Tab RxNorm: 469960 1 Tablet(s) PO Q4H prn nausea 2009 No Stop Date Active Symbicort 160 mcg-4.5 mcg/Actuation Inhalation HFA Aer osol Inhaler RxNorm: 5403755 2 Puff(s) INH BID 07/14/2010 08/06/2010 Inactive Loratadine 10 mg Tab RxNorm: 2818550 1 Tablet(s) PO QD 07/14/2010 Inactive Gabapentin 800 mg Tab RxNorm: 894706 1 Tablet(s) PO QD 07/14/2010 Inactive Metformin ER 500 mg 24 hr Tab RxNorm: 690913 1 Tablet(s) PO 010 07/13/2010 Inactive Diazepam 10 mg Tab RxNorm: 499060 1 Tablet(s) PO BID and PRN 200909/06/2010 Inactive Premarin 0.9 mg Tab RxNorm: 055574 1 Tablet(s) PO QD 06/09/201007/13 Inactive Zofran 4 mg Tab RxNorm: 489960 1 Tablet(s) PO Q4H prn nausea 2009 No Stop Date Active ProAir HFA 90 mcg/Actuation Aerosol Inhaler RxNorm: 641278 2 Puff(s) INH Q4H prn shortness of breath 06/09/2010 No Stop Date Active Gabapentin 800 mg Tab RxNorm: 031553 1 Tablet(s) PO QD 06/09/2010 Inactive Loratadine 10 mg Tab RxNorm: 4315186 1 Tablet(s) PO QD 06/09/2010 Inactive Lactulose 10 gram/15 mL Oral Soln RxNorm: 873560 1 Unit Dose PO QD 06/09/2010 07/13/2010 Inactive Prevacid 30 mg Cap RxNorm: 444867 1 Capsule(s) PO QD 06/09/201007/13 Inactive Synthroid 112 mcg Tab RxNorm: 204588 1 Tablet(s) PO QD 06/09/2010 Inactive Symbicort 160 mcg-4.5 mcg/Actuation Inhalation HFA Aer osol Inhaler RxNorm: 4626557 2 Puff(s) INH BID 06/09/2010 07/13/2010 Inactive Omnicef 300 mg Cap RxNorm: 773686 2 Capsule(s) PO QD 05/07/201005/20 Inactive Metformin 500 mg Tab RxNorm: 315257 1 Tablet(s) PO QD 05/06/201005/22 Inactive ProAir HFA 90 mcg/Actuation Aerosol Inhaler RxNorm: 462385 2 Puff(s) INH Q4H prn shortness of breath 05/06/2010 No Stop Date Active lactulose 10 gram/15 mL Oral Soln RxNorm: 148477 1 Unit Dose PO QD 05/06/2010 06/10/2011 Inactive Loratadine 10 mg Tab RxNorm: 4143034 1 Tablet(s) PO QD 05/06/2010 Inactive Synthroid 112 mcg Tab RxNorm: 722747 1 Tablet(s) PO QD 05/06/2010 Inactive Symbicort 160 mcg-4.5 mcg/Actuation Inhalation HFA Aer osol Inhaler RxNorm: 4110476 2 Puff(s) INH BID 05/06/2010 06/08/2010 Inactive Gabapentin 800 mg Tab RxNorm: 984685 1 Tablet(s) PO QD 05/06/2010 Inactive 16.2 mg-0.1037 mg-0.0194 mg Tab RxNorm: 0133395 2 Tablet(s) PO TID PRN for gas and cramping 05/06/2010 05/12/2010 Inactive Zofran 4 mg Tab RxNorm: 481024 1 Tablet(s) PO Q4H prn nausea 200904/13/2010 Inactive MS Contin 60 mg Tab RxNorm: 534778 3 Tablet(s) PO BID 04/09/201004/22 Inactive Soma 350 mg Tab RxNorm: 023118 2 Tablet(s) PO TID 04/09/2010 05/08/20 Inactive Symbicort 160 mcg-4.5 mcg/Actuation Inhalation HFA Aer osol Inhaler RxNorm: 7250111 2 Puff(s) INH BID 04/08/2010 05/05/2010 Inactive Doxycycline 100 mg Cap RxNorm: 9808987 1 Capsule(s) PO BID 04/08/20 10 04/17/2010 Inactive Triamterene-Hydrochlorothiazide 37.5 mg-25 mg Cap RxNorm: 19 8316 1 Capsule(s) PO QAM 04/08/2010 09/04/2010 Inactive fluoxetine 40 mg Cap RxNorm: 131547 1 Capsule(s) PO QAM 04/08/2010 Inactive Morphine SR 120 mg multiphase 24 hr Cap RxNorm: 434717 1 Capsul e(s) PO 03/11/2010 04/07/2010 Inactive Endocet 10 mg-325 mg Tab RxNorm: 2914396 1-2 Tablet(s) PO Q4H [place] N PAIN 03/11/2010 04/09/2010 Inactive Savella 100 mg Tab RxNorm: 440155 1 Tablet(s) PO BID 03/10/201004/09 Inactive Soma 350 mg Tab RxNorm: 376805 1 Tablet(s) PO TID prn spasm 010 04/09/2010 Inactive Savella 100 mg Tab RxNorm: 897929 1 Tablet(s) PO BID 02/03/201004/09 Inactive Aspirin 81 mg Tab RxNorm: 746945 1 Tablet(s) PO QD No Start Date Active Zyrtec 10 mg Tab RxNorm: 7084845 1 Tablet(s) PO QD No Start Date Active One Touch Ultra Test Strips RxNorm: Misc test at least t wice daily. No Start Date Active coenzyme Q10 200 mg capsule RxNorm: 936458 1 Capsule(s) PO QD No Star t Date Active One Touch Ultra Test Strips RxNorm: InVt BID Zainab t blood sugar at least twice daily. No Start Date 11/10/2010 Inactive Gabapentin 800 mg Tab RxNorm: 957664 1 Tablet(s) PO QD No Start Date 05/05/2010 Inactive Abilify 5 mg tablet RxNorm: 887001 1 Tablet(s) PO QD No Start Date Inactive Chantix 1 mg Tab RxNorm: 560473 1 Tablet(s) PO BID No Start Date 10/22 Inactive Ozempic 0.25 mg or 0.5 mg (2 mg/1.5 mL) subcutaneous p en injector RxNorm: 0269233 .25 Milligram(s) SQ QW No Start Date 07/04/2019 Inactive lancets 28 gauge RxNorm: Miscellaneous As needed for blo od glucose sticks No Start Date 08/23/2013 Inactive potassium chloride ER 20 mEq tablet,extended release RxNorm: 445938 2 Tablet(s) PO QD No Start Date 09/26/2018 Inactive Ventolin HFA 90 mcg/actuation Aerosol Inhaler RxNorm: 569586 2 Puff(s) INH Q4H prn No Start Date 01/17/2012 Inactive potassium chloride ER 20 mEq tablet,extended release RxNorm: 485666 2 Tablet(s) PO QD No Start Date 10/19/2018 Inactive Januvia 100 mg tablet RxNorm: 735805 1 Tablet(s) PO QD No Start Date 09/10/2015 Inactive Medrol (Aníbal) 4 mg Tabs in a Dose Pack RxNorm: 014541 Tablet(s) PO N o Start Date 08/09/2011 Inactive as directed Zithromax Z-Aníbal 250 mg Tab RxNorm: 409543 Tablet(s) PO No Start Date 01/25/2012 Inactive as directed vitamin B6-vitamin E-magnesium tablet RxNorm: 1 Tablet(s ) PO QHS with INH No Start Date 03/30/2018 Inactive prednisone 20 mg Tab RxNorm: 853191 1 Tablet(s) PO TID for 1wk then 1 po BID for 1wk No Start Date 01/25/2012 Inactive furosemide 40 mg tablet RxNorm: 586470 1 Tablet(s) PO QAM No Start Date 10/09/2018 Inactive Vitamin D3 1000 units Capsule RxNorm: 1 Capsule(s) PO TID No S tart Date 03/19/2015 Inactive Zofran 4 mg Tab RxNorm: 736356 1 Tablet(s) PO Q4H prn nausea No Sta rt Date 04/13/2010 Inactive Premarin 0.625 mg/g Vaginal Cream RxNorm: 492057 1 Gram (s) VAG QHS 3 times a week No Start Date 09/22/2017 Inactive oxycodone 10 mg tablet RxNorm: 7253728 1-2 Tablet(s) PO QID as n eeded for pain No Start Date 11/04/2015 Inactive Nicoderm CQ 21 mg/24 hr daily Patch RxNorm: 897885 1 Applicatio n TD QD No Start Date 08/05/2015 Inactive Topamax 50 mg tablet RxNorm: 876119 1/2 Tablet(s) PO QH S for 1wk then 1 po q HS for 1wk then 2 po q HS No Start Date 06/27/2012 Inactive Chantix Starting Month Aníbal 0.5 mg (11)-1 mg (3x14) Tab s in a Dose Pack RxNorm: 110036 Tablet(s) PO as directed No Start Date 03/01/2011 Inactive Trulicity 0.75 mg/0.5 mL subcutaneous pen injector RxNorm: 1 033745 Milliliter(s) SQ No Start Date 07/04/2019 Inactive Medrol (Aníbal) 4 mg Tabs in a Dose Pack RxNorm: 734066 Tablet(s) PO N o Start Date 01/25/2012 Inactive as directed Duragesic 100 mcg/hr Transderm Patch RxNorm: 901745 2 A pplication TD Q48H for pain No Start Date 09/05/2013 Inactive Premarin 0.9 mg Tab RxNorm: 294257 1 Tablet(s) PO QD No Start Date Inactive Zithromax Z-Aníbal 250 mg Tab RxNorm: 902422 Tablet(s) PO as direc chinmay No Start Date 01/25/2012 Inactive ondansetron 8 mg disintegrating tablet RxNorm: 096239 1 Tablet(s) PO Q6H as needed No Start Date 10/10/2018 Inactive oxycodone 15 mg tablet RxNorm: 8150236 1 Tablet(s) PO QID as nee ded for pain No Start Date 03/05/2019 Inactive ProAir HFA 90 mcg/Actuation Aerosol Inhaler RxNorm: 398242 2 Puff(s) INH Q4H prn for wheezing or shortness of breath No Start Date 12/21/2011 Inactive pravastatin 40 mg tablet RxNorm: 642907 1/2 Tablet(s) PO QOD No Sta rt Date 04/09/2015 Inactive ipratropium-albuterol 0.5 mg-3 mg(2.5 mg base)/3 mL ne bulization soln RxNorm: 5269226 1 Unit Dose INH Q4H as needed No Start Date 09/09/2016 Inactive furosemide 40 mg tablet RxNorm: 526678 1 Tablet(s) PO QAM as ne eded No Start Date 09/24/2019 Inactive Vitamin D2 oral RxNorm: 4018 oral No Start Date 03/18/2015 Inacti ve pravastatin 40 mg tablet RxNorm: 404632 1/2 Tablet(s) PO QD No Star t Date 04/09/2015 Inactive ondansetron HCl 4 mg tablet RxNorm: 457143 1 Tablet(s) PO Q4H as needed for nausea and vomiting No Start Date 04/07/2016 Inactive furosemide 40 mg tablet RxNorm: 590478 2 Tablet(s) PO QAM No Start Date 09/26/2018 Inactive gabapentin 800 mg tablet RxNorm: 104148 1/2 Tablet(s) PO BID No Sta rt Date 06/21/2017 Inactive gabapentin 800 mg tablet RxNorm: 303085 1/2 Tablet(s) PO BID No Sta rt Date 07/05/2017 Inactive ProAir HFA 90 mcg/Actuation Aerosol Inhaler RxNorm: 643928 2 Puff(s) INH Q4H prn shortness of breath No Start Date 05/05/2010 Inactive scopolamine 1 mg over 3 days transdermal patch RxNorm: 52152 2 1 Application TD behind ear. Take off after three days No Start Date 10/10/2018 Inactive Metformin 500 mg Tab RxNorm: 496839 1 Tablet(s) PO QD No Start Date 0 05/05/2010 Inactive MS Contin 200 mg Tab RxNorm: 898023 1 Tablet(s) PO BID No Start Date 08/20/2011 Inactive Belladonna-Phenobarbital 48 mg tablet,extended release RxNor m: 2 Tablet(s) PO TID No Start Date 06/04/2016 Inactive Synthroid 112 mcg Tab RxNorm: 122364 1 Tablet(s) PO QD No Start Date 05/05/2010 Inactive Zegerid 40 mg-1.1 gram Cap RxNorm: 358991 1 Capsule(s) PO QD No Sta rt Date 01/25/2012 Inactive Premarin 0.625 mg/g Vaginal Cream RxNorm: 356042 VAG In sert 1gm vaginally at bedtime 3 times weekly No Start Date 01/17/2011 Inactive potassium chloride ER 20 mEq tablet,extended release RxNorm: 353595 1 Tablet(s) PO QD No Start Date 04/24/2019 Inactive methocarbamol 750 mg tablet RxNorm: 124144 2 Tablet(s) PO TID as needed for muscle spasm No Start Date 07/08/2014 Inactive Biaxin XL Aníbal 500 mg 24 hr Tab RxNorm: 755406 Tablet(s) PO as d irected No Start Date 04/24/2013 Inactive Vitamin D3 1,000 unit tablet RxNorm: 029180 3 Tablet(s) PO QD No St art Date 06/01/2017 Inactive Morphine SR 120 mg multiphase 24 hr Cap RxNorm: 728385 1 Capsul e(s) PO BID No Start Date 04/09/2010 Inactive Silvadene 1 % topical cream RxNorm: 356076 1 Application TOP BI D to burn area No Start Date 01/31/2017 Inactive Prednisone 20 mg Tab RxNorm: 468992 1 Tablet(s) PO TID for 3days then BID for 4days No Start Date 01/25/2012 Inactive gabapentin 600 mg tablet RxNorm: 277409 1 Tablet(s) PO BID No Start Date 01/21/2015 Inactive topiramate 50 mg tablet RxNorm: 029430 1 Tablet(s) PO QHS No Start Date 03/30/2018 Inactive Januvia 100 mg tablet RxNorm: 481986 1/2 Tablet(s) PO QD No Start D ate 12/25/2015 Inactive Diazepam 10 mg Tab RxNorm: 583496 1 Tablet(s) PO BID and PRN No Sta rt Date 06/08/2010 Inactive Medication Administered No Medication Administered data Immunizations Vaccine Codes Date Status Influenza CVX: 141 09/28/2012 Pneumovax Unknown 09/28/2012 Influenza (Adult) CVX: 141 09/02/2010 Results No Results data Procedures Procedure Codes Date THER/PROPH/DIAG INJ SC/IM CPT-4: 45856 07/10/2019 METHYLPREDNISOLONE INJECTION CPT-4: J2930 07/10/2019 URINALYSIS NONAUTO W/O SCOPE CPT-4: 74559 09/06/2018 URINE CULTURE/ COLONY COUNT CPT-4: 21335 09/06/2018 DRAIN/INJECT JOINT/BURSA CPT-4: 94257 04/29/2017 TRIAMCINOLONE ACET INJ NOS CPT-4: J3301 04/29/2017 DEXAMETHASONE SODIUM PHOS CPT-4: J1100 04/29/2017 INFLUENZA ASSAY W/OPTIC CPT-4: 16706 12/01/2016 RESPIRATORY CULTURE & STAIN CPT-4: 47818 07/09/2016 TB INTRADERMAL TEST CPT-4: 65286 04/21/2016 DRAIN/INJECT JOINT/BURSA CPT-4: 64222 11/07/2013 METHYLPREDNISOLONE 40 MG INJ CPT-4: J1030 11/07/2013 TRIAMCINOLONE ACET INJ NOS CPT-4: J3301 11/07/2013 DRAIN/INJECT JOINT/BURSA CPT-4: 59048 08/08/2013 METHYLPREDNISOLONE 40 MG INJ CPT-4: J1030 08/08/2013 TRIAMCINOLONE ACET INJ NOS CPT-4: J3301 08/08/2013 FLU VACCINE 3 YRS & > IM UP 64 CPT-4: 58007 2 PNEUMOCOCCAL VACC 23 ADITYA IM CPT-4: 47775 09/28/2012 IMMUNIZATION ADMIN CPT-4: 46365 09/28/2012 IMMUNIZATION ADMIN EACH ADD CPT-4: 70836 09/28/2012 FLU VACCINE 3 YRS & > IM UP 64 CPT-4: 34656 0 IMMUNIZATION ADMIN CPT-4: 09129 09/02/2010 METHYLPREDNISOLONE INJECTION CPT-4: J2930 05/07/2010 THER/PROPH/DIAG INJ SC/IM CPT-4: 08007 05/07/2010 Vital Signs Date Vital 11/29/2019 Blood [...] 1: 122/78 Code: 8480-6 BMI: 29.5 Code: 82594-9 Heart Rate 1: 76 bpm Height: 5'4" Respiratory Rate: 20 bpm SpO2: 96% Tempera ture: 37.0 (C) / 98.6 (F) Weight: 172 lbs 01/25/2019 Blood Pressure 1: 132/80 Code: 8480-6 BMI: 29.7 Code: 26325-4 Heart Rate 1: 84 bpm Height: 5'4" Respiratory Rate: 22 bpm SpO2: 98% Tempera ture: 36.9 (C) / 98.4 (F) Weight: 173 lbs 01/03/2019 Blood Pressure 1: 116/70 Code: 8480-6 BMI: 29.5 Code: 07621-7 Heart Rate 1: 92 bpm Height: 5'4" Respiratory Rate: 24 bpm SpO2: 98% Tempera ture: 37.2 (C) / 98.9 (F) Weight: 172 lbs 11/21/2018 Blood Pressure 1: 146/82 Code: 8480-6 BMI: 28.2 Code: 03889-5 Heart Rate 1: 88 bpm Height: 5'4" Respiratory Rate: 22 bpm SpO2: 97% Tempera ture: 36.9 (C) / 98.4 (F) Weight: 164 lbs 10/27/2018 Blood Pressure 1: 122/70 Code: 8480-6 BMI: 27.6 Code: 52945-0 Heart Rate 1: 88 bpm Height: 5'4" Respiratory Rate: 20 bpm SpO2: 96% Tempera ture: 36.8 (C) / 98.3 (F) Weight: 161 lbs 10/18/2018 Blood Pressure 1: 126/70 Code: 8480-6 BMI: 28.3 Code: 81504-3 Heart Rate 1: 76 bpm Height: 5'4" Respiratory Rate: 20 bpm SpO2: 95% Tempera ture: 37.0 (C) / 98.6 (F) Weight: 165 lbs 09/27/2018 Blood Pressure 1: 124/78 Code: 8480-6 BMI: 27.1 Code: 75028-7 Heart Rate 1: 88 bpm Height: 5'4" Respiratory Rate: 20 bpm SpO2: 98% Tempera ture: 36.4 (C) / 97.6 (F) Weight: 158 lbs 09/14/2018 Blood Pressure 1: 140/72 Code: 8480-6 BMI: 26.1 Code: 73097-9 Heart Rate 1: 100 bpm Height: 5'4" Respiratory Rate: 20 bpm SpO2: 97% Tempera ture: 36.9 (C) / 98.4 (F) Weight: 152 lbs 09/06/2018 Blood Pressure 1: 156/82 Code: 8480-6 BMI: 26.3 Code: 92178-7 Heart Rate 1: 100 bpm Height: 5'4" Respiratory Rate: 28 bpm SpO2: 95% Tempera ture: 37.2 (C) / 98.9 (F) Weight: 153 lbs 08/16/2018 Blood Pressure 1: 130/78 Code: 8480-6 Heart Rate 1: 87 bpm Respiratory Rate: 24 bpm SpO2: 94% Temperature: 36.9 (C) / 98.4 (F) We ight: 147 lbs 8 oz 07/07/2018 Blood Pressure 1: 116/78 Code: 8480-6 BMI: 22.7 Code: 82937-9 Heart Rate 1: 88 bpm Height: 5'4" Respiratory Rate: 22 bpm SpO2: 98% Tempera ture: 36.5 (C) / 97.7 (F) Weight: 132 lbs 05/31/2018 Blood Pressure 1: 128/78 Code: 8480-6 BMI: 22.3 Code: 95813-9 Heart Rate 1: 92 bpm Height: 5'4" Respiratory Rate: 26 bpm SpO2: 94% Tempera ture: 36.7 (C) / 98.1 (F) Weight: 130 lbs 03/31/2018 Blood Pressure 1: 136/78 Code: 8480-6 BMI: 21.5 Code: 86378-2 Heart Rate 1: 76 bpm Height: 5'4" Respiratory Rate: 24 bpm SpO2: 95% Tempera ture: 36.8 (C) / 98.3 (F) Weight: 125 lbs 01/26/2018 Blood Pressure 1: 142/64 Code: 8480-6 BMI: 20.6 Code: 46262-3 Heart Rate 1: 90 bpm Height: 5'4" Respiratory Rate: 24 bpm SpO2: 92% Tempera ture: 36.3 (C) / 97.3 (F) Weight: 120 lbs 10/26/2017 Blood Pressure 1: 124/70 Code: 8480-6 BMI: 20.3 Code: 08709-9 Heart Rate 1: 76 bpm Height: 5'4" Respiratory Rate: 22 bpm SpO2: 94% Tempera ture: 36.7 (C) / 98.1 (F) Weight: 118 lbs 09/23/2017 Blood Pressure 1: 106/70 Code: 8480-6 BMI: 19.2 Code: 05866-4 Heart Rate 1: 76 bpm Height: 5'4" Respiratory Rate: 20 bpm SpO2: 94% Tempera ture: 36.8 (C) / 98.3 (F) Weight: 112 lbs 08/12/2017 Blood Pressure 1: 116/68 Code: 8480-6 BMI: 20.1 Code: 84032-2 Heart Rate 1: 80 bpm Height: 5'4" Respiratory Rate: 22 bpm SpO2: 95% Tempera ture: 36.8 (C) / 98.2 (F) Weight: 117 lbs 07/06/2017 Blood Pressure 1: 136/78 Code: 8480-6 BMI: 20.6 Code: 91077-4 Heart Rate 1: 76 bpm Height: 5'4" Respiratory Rate: 24 bpm SpO2: 96% Tempera ture: 36.8 (C) / 98.2 (F) Weight: 120 lbs 06/02/2017 Blood Pressure 1: 112/70 Code: 8480-6 Heart Rate 1: 92 bpm Height: 5'4" Respiratory Rate: 24 bpm SpO2: 95% Temperature: 37.0 (C) / 98.6 (F) Weight: 04/29/2017 Blood Pressure 1: 94/52 Code: 8480-6 BMI: 19.6 C ode: 71302-7 Heart Rate 1: 84 bpm Height: 5'4" [...] 92/58 Code: 8480-6 BMI: 19.2 C ode: 46881-4 Heart Rate 1: 84 bpm Height: 5'4" Respiratory Rate: 26 bpm SpO2: 95% Tempera ture: 36.7 (C) / 98.0 (F) Weight: 112 lbs 12/01/2016 Blood Pressure 1: 114/70 Code: 8480-6 BMI: 19.2 Code: 35241-2 Heart Rate 1: 96 bpm Height: 5'4" Respiratory Rate: 28 bpm SpO2: 93% Tempera ture: 38.3 (C) / 101.0 (F) Weight: 112 lbs 10/27/2016 Blood Pressure 1: 126/66 Code: 8480-6 BMI: 19.6 Code: 87528-2 Heart Rate 1: 92 bpm Height: 5'4" Respiratory Rate: 28 bpm SpO2: 90% Tempera ture: 36.8 (C) / 98.3 (F) Weight: 114 lbs 09/09/2016 Blood Pressure 1: 126/74 Code: 8480-6 Heart Rate 1: 104 bpm Height: 5'4" Respiratory Rate: 32 bpm SpO2: 88% Temperature: 37 .2 (C) / 99.0 (F) 08/26/2016 Blood Pressure 1: 134/82 Code: 8480-6 BMI: 22.0 Code: 16189-6 Heart Rate 1: 84 bpm Height: 5'4" Respiratory Rate: 24 bpm SpO2: 94% Tempera ture: 36.8 (C) / 98.3 (F) Weight: 128 lbs 05/21/2016 Blood Pressure 1: 142/80 Code: 8480-6 BMI: 21.6 Code: 71792-2 Heart Rate 1: 104 bpm Height: 5'4" Respiratory Rate: 22 bpm SpO2: 93% Tempera ture: 36.0 (C) / 96.8 (F) Weight: 126 lbs 03/25/2016 Blood Pressure 1: 126/62 Code: 8480-6 Heart Rate 1: 88 bpm Respiratory Rate: 20 bpm SpO2: 92% Temperature: 36.8 (C) / 98.3 (F) We ight: 130 lbs 01/23/2016 Blood Pressure 1: 146/82 Code: 8480-6 BMI: 24.1 Code: 40291-5 Heart Rate 1: 92 bpm Height: 5'3" Respiratory Rate: 22 bpm Temperature: 37 .1 (C) / 98.8 (F) Weight: 136 lbs 12/26/2015 Blood Pressure 1: 142/78 Code: 8480-6 BMI: 24.6 Code: 07101-9 Heart Rate 1: 78 bpm Height: 5'3" Respiratory Rate: 20 bpm Temperature: 36 .7 (C) / 98.1 (F) Weight: 139 lbs 12/03/2015 Blood Pressure 1: 126/60 Code: 8480-6 BMI: 24.6 Code: 86280-6 Heart Rate 1: 100 bpm Height: 5'3" Respiratory Rate: 28 bpm Temperature: 37 .6 (C) / 99.6 (F) Weight: 139 lbs 09/10/2015 Blood Pressure 1: 124/64 Code: 8480-6 BMI: 23.7 Code: 51941-2 Heart Rate 1: 88 bpm Height: 5'3" Respiratory Rate: 24 bpm SpO2: 95% Tempera ture: 36.4 (C) / 97.6 (F) Weight: 134 lbs 08/06/2015 Blood Pressure 1: 114/76 Code: 8480-6 BMI: 23.2 Code: 43932-4 Heart Rate 1: 88 bpm Height: 5'3" Respiratory Rate: 22 bpm Temperature: 36 .6 (C) / 97.9 (F) Weight: 131 lbs 07/18/2015 Blood Pressure 1: 144/78 Code: 8480-6 BMI: 23.7 Code: 37492-7 Heart Rate 1: 84 bpm Height: 5'3" Respiratory Rate: 20 bpm Temperature: 37 .2 (C) / 99.0 (F) Weight: 134 lbs 04/10/2015 Blood Pressure 1: 110/64 Code: 8480-6 Heart Rate 1: 80 bpm Height: Respiratory Rate: 20 bpm Temperature: 37.1 (C) / 98.8 (F) Weight: 03/05/2015 Blood Pressure 1: 136/80 Code: 8480-6 BMI: 23.9 Code: 36018-8 Heart Rate 1: 76 bpm Height: 5'3" Respiratory Rate: 24 bpm Temperature: 37 .0 (C) / 98.6 (F) Weight: 135 lbs 01/30/2015 Blood Pressure 1: 142/80 Code: 8480-6 BMI: 23.0 Code: 32513-4 Heart Rate 1: 96 bpm Height: 5'3" Respiratory Rate: 22 bpm Temperature: 36 .2 (C) / 97.2 (F) Weight: 130 lbs 01/02/2015 Blood Pressure 1: 124/70 Code: 8480-6 BMI: 23.4 Code: 23160-4 Heart Rate 1: 84 bpm Height: 5'3" Respiratory Rate: 24 bpm SpO2: 95% Tempera ture: 36.9 (C) / 98.5 (F) Weight: 132 lbs 10/03/2014 Blood Pressure 1: 106/68 Code: 8480-6 BMI: 22.5 Code: 56262-1 Heart Rate 1: 88 bpm Height: 5'3" Respiratory Rate: 24 bpm Temperature: 37 .0 (C) / 98.6 (F) Weight: 127 lbs 08/27/2014 Blood Pressure 1: 12468 Code: 8480-6 BMI: 21.1 Code: 46991-9 Heart Rate 1: 88 bpm Height: 5'3" [...] Weight: 124 lbs 03/07/2014 Blood Pressure 1: 102 Code: 8480-6 Heart Rate 1: 84 bpm [...] 1: 120/70 Code: 8480-6 BMI: 19.2 Code: 47092-7 Heart Rate 1: 70 bpm Height: 5'4" Respiratory Rate: 20 bpm Temperature: 36 .9 (C) / 98.4 (F) Weight: 112 lbs 06/28/2013 Blood Pressure 1: 102/68 Code: 8480-6 BMI: 19.6 Code: 03443-3 Heart Rate 1: 76 bpm Height: 5'4" Respiratory Rate: 20 bpm Temperature: 36 .8 (C) / 98.2 (F) Weight: 114 lbs 05/31/2013 Blood Pressure 1: 106/70 Code: 8480-6 BMI: 18.9 Code: 12746-7 Heart Rate 1: 100 bpm Height: 5'4" Respiratory Rate: 20 bpm Temperature: 36 .4 (C) / 97.6 (F) Weight: 110 lbs 05/03/2013 Blood Pressure 1: 126/70 Code: 8480-6 BMI: 19.1 Code: 32549-0 Heart Rate 1: 88 bpm Height: 5'4" Respiratory Rate: 20 bpm Temperature: 37 .1 (C) / 98.8 (F) Weight: 111 lbs 04/25/2013 Blood Pressure 1: 114/68 Code: 8480-6 BMI: 19.4 Code: 35086-4 Heart Rate 1: 92 bpm Height: 5'4" Respiratory Rate: 24 bpm SpO2: 96% Tempera ture: 37.7 (C) / 99.8 (F) Weight: 113 lbs 03/08/2013 Blood Pressure 1: 94/68 Code: 8480-6 BMI: 21.3 C ode: 62934-6 Heart Rate 1: 88 bpm Height: 5'4" Respiratory Rate: 24 bpm Temperature: 37 .0 (C) / 98.6 (F) Weight: 124 lbs 02/07/2013 Blood Pressure 1: 106/64 Code: 8480-6 BMI: 21.8 Code: 09667-4 Heart Rate 1: 84 bpm Height: 5'4" Respiratory Rate: 22 bpm Temperature: 36 .8 (C) / 98.2 (F) Weight: 127 lbs 01/10/2013 Blood Pressure 1: 122/68 Code: 8480-6 BMI: 21.6 Code: 14748-8 Heart Rate 1: 94 bpm Height: 5'4" SpO2: 94% Temperature: 36.7 (C) / 98.1 (F) Weight: 126 lbs 09/28/2012 Blood Pressure 1: 124/78 Code: 8480-6 BMI: 24.9 Code: 49632-0 Heart Rate 1: 92 bpm Height: 5'4" Respiratory Rate: 20 bpm Temperature: 36 .7 (C) / 98.1 (F) Weight: 145 lbs 06/28/2012 Blood Pressure 1: 134/80 Code: 8480-6 BMI: 24.9 Code: 11391-4 Heart Rate 1: 76 bpm Height: 5'4" Respiratory Rate: 20 bpm Temperature: 36 .8 (C) / 98.2 (F) Weight: 145 lbs 05/03/2012 Blood Pressure 1: 108/62 Code: 8480-6 BMI: 25.6 Code: 10009-6 Heart Rate 1: 88 bpm Height: 5'4" Temperature: 36.2 (C) / 97.2 (F) Weight: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 Appointment: Vika Renteria WPtel: [address] [place] [address] ACUTE ILLNESS 07/15/2011 Patient Education: Patient Medication Summary Completed 07/15/2011 Appointment: Vika Renteria WPtel: [address] [place] [address] FOLLOW UP 04/02/2011 Visit Plan: SVN with Albuterol 0.083% Q4 hrs and Q2hrs prn. Cont smoking Cessation 03/19/2011 Appointment: Vika Renteria WPtel: [address] [place] [address] ACUTE ILLNESS 03/19/2011 Patient Education: Patient Medication Summary Completed 03/19/2011 Visit Plan: Repeat Biaxin XL Cont curren t meds Repeat Chantix 01/28/2011 Appointment: Vika Renteria WPtel: [address] [place] [address] FOLLOW UP 01/28/2011 Patient Education: Patient Medication Summary Completed 01/28/2011 Patient Education: Chantix Unbranded Comp leted 01/28/2011 Appointment: Vika Renteria WPtel: [address] [place] [address] FOLLOW UP 01/14/2011 Visit Plan: Finish abx Diflucan for vagi nitis Premarin vaginal cream Smoking cessation 12/17/2010 Appointment: Vika Renteriatel: [address] [place] [address] Follow Up 12/17/2010 Patient Education: Patient Medication Summary Completed 12/17/2010 Appointment: Vika Renteria WPtel: [address] [place] [address] FOLLOW UP 11/06/2010 Visit Plan: Start PT Use SVNs every 4hrs Smoking Cessation Change MS Contin to 200mg q 12hrs 2010 Appointment: Vika Renteria WPtel: [address] [place] [address] FOLLOW UP 2010 Patient Education: Patient Medication Summary Completed 2010 Visit Plan: Prednisone taper for pain an d lungs 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 Increase fluoxetine to 60mg QD for acute stress reaction 10/02/2010 Appointment: Vika Renteriatel: [address] [place] [address] FOLLOW UP 10/02/2010 Patient Education: Patient Medication Summary Completed 10/02/2010 Visit Plan: Check CT Head, Cervical, Tho racic, and Lumbar Spine Cont current meds Bactrim for left toe 09/24/2010 Appointment: Vika Renteria WPtel: [address] [place] [address] CHECK UP 09/24/2010 Patient Education: Patient Medication Summary Completed 09/24/2010 Appointment: Vika Renteriatel: [address] [place] [address] FOLLOW UP 09/02/2010 Patient Education: Patient Medication Summary Completed 09/02/2010 Visit Plan: Return for 2nd epidural Obse rve right leg lesion Cont Symbicort and Spiriva 07/14/2010 Appointment: Vika Renteriatel: [address] [place], [place] [phone] [place] FOLLOW UP 07/14/2010 Patient Education: Patient Medication Summary Completed 07/14/2010 Appointment: Vika Renteria WPtel: [address] [place], [place] [phone] FOLLOW UP 05/27/2010 Appointment: Vika Renteria WPtel: [address] [place], [place] [phone] [place] FOLLOW UP 05/14/2010 Visit Plan: SVN with Albuterol 0.083% Q4 hrs and Q2hrs prn. Restart Spiriva Smoking Cessation 05/07/2010 Appointment: Vika Renteria WPtel: [address] [place], [place] [phone] FOLLOW UP 05/07/2010 Patient Education: Patient Medication Summary Completed 05/07/2010 Appointment: Vika Renteria WPtel: [address] [place], [place] [phone] ACUTE ILLNESS 04/08/2010 Patient Education: Patient Medication Summary Completed 04/08/2010 Referral: Kyle Billings WPtel: [phone] [id number] [place] Referral Completed Referral: Jaylan Matute WPtel: [address] [place] [address] [address] [id number] [place] Referral Initiated Referral: Kyle Billings WPtel: [address] [address] [place] Referral Appointment Requested Instructions Comment . [...] prn breakthrough pain . Discussed that some [employer] produc ts are petroleum free If [...]
--- OUTSIDE RECORDS SUMMARY | 2020-04-24 22:20 | XMS REPORT | CCD ---
Author Author Yana Renteria D.O. 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 Name Role Phone Vika Renteria D.O., PP Unavailable CCM Unavailable Summary Purpose Interface Exchange Insurance Providers Payer name Policy type / Coverage type Covered green party ID Effective Begin Date Effective End Date [employer] [facility] [place] Medicaid [id number] 2018 U nknown Family History Family History data not found Social History Social History Element Codes Description Effective Dates Marital status Unknown 06/28/[address]: [id number] Currently smokes tobacco 05/2013 Allergies, Adverse Reactions, [...] Fill Instructions Relistor 150 mg tablet RxNorm: 2999161 TAKE THREE TABLETS BY BENOIT TH DAILY 03/13/2020 No Stop Date Active furosemide 40 mg tablet RxNorm: 521614 TAKE ONE TABLET BY MOUTH EVERY MORNING 03/13/2020 No Stop Date Active hydroxyzine HCl 50 mg tablet RxNorm: 657922 1 Tablet(s) Oral two times a day to take with morphine--replaces benadryl 03/12/2020 04/11/2020 Active prednisone 1 mg tablet RxNorm: 081341 1 Tablet(s) Oral two times a day to take with hydroxyzine 03/12/2020 No Stop Date Active prednisolone 5 mg tablet RxNorm: 084451 1 Tablet(s) Oral two ti mes a day 02/22/2020 03/23/2020 Active prednisolone 5 mg tablet RxNorm: 377450 1 Tablet(s) Oral two ti mes a day 02/22/2020 02/21/2020 Inactive Symbicort 160 mcg-4.5 mcg/actuation HFA aerosol inhaler RxNo rm: 9286788 INHALE TWO PUFFS BY MOUTH TWICE A DAY 02/19/2020 No Stop Date Active Daliresp 500 mcg tablet RxNorm: 7728712 TAKE ONE TABLET BY MOUTH DAILY 02/19/2020 No Stop Date Active prednisone 20 mg tablet RxNorm: 552038 1 Tablet(s) Oral two yumi es a day 02/13/2020 02/20/2020 Inactive oxycodone 30 mg tablet RxNorm: 2148634 1 Tablet(s) Oral four times a day replaces MS Contin 02/13/2020 02/22/2020 Inactive levothyroxine 25 mcg tablet RxNorm: 736846 TAKE ONE TAB LET BY MOUTH EVERY MORNING 02/09/2020 No Stop Date Active MS Contin 200 mg tablet,extended release RxNorm: 706950 1 Tablet(s) Oral two times a day 02/01/2020 03/01/2020 Inactive cyclobenzaprine 10 mg tablet RxNorm: 469148 TAKE ONE TA BLET BY MOUTH THREE TIMES A DAY NEEDED 01/31/2020 No Stop Date Active Premarin 0.45 mg tablet RxNorm: 461562 TAKE ONE TABLET BY MOUTH DAILY 01/31/2020 No Stop Date Active metformin 500 mg tablet RxNorm: 063126 1 Tablet(s) Oral QD 01/31/20 20 04/29/2020 Active gabapentin 300 mg capsule RxNorm: 258915 TAKE ONE CAPSULE BY [facility] TWICE A DAY 01/16/2020 No Stop Date Active potassium chloride ER 20 mEq tablet,extended release RxNorm: 488173 TAKE ONE TABLET BY MOUTH DAILY 01/08/2020 07/05/2020 Active ProAir HFA 90 mcg/actuation aerosol inhaler RxNorm: 402063 INHALE ONE PUFF BY MOUTH EVERY 4 HOURS FOR WHEEZING OR FOR SHORTNESS OF BREATH 01/04/2020 No Stop Date Active metformin 500 mg tablet RxNorm: 202362 1 Tablet(s) Oral QD 01/04/20 20 01/30/2020 Inactive MS Contin 200 mg tablet,extended release RxNorm: 601015 1 Tablet(s) Oral two times a day 01/02/2020 01/31/2020 Inactive Pulmicort 1 mg/2 mL suspension for nebulization RxNorm: 6168 19 USE ONE VIAL VIA NEBULIZER BY MOUTH TWICE A DAY 12/21/2019 No Stop Date Active furosemide 40 mg tablet RxNorm: 717965 TAKE ONE TABLET BY MOUTH EVERY MORNING NEEDED 12/20/2019 03/12/2020 Inactive levothyroxine 25 mcg tablet RxNorm: 189846 TAKE ONE TAB LET BY MOUTH EVERY MORNING 12/20/2019 02/08/2020 Inactive MS Contin 200 mg tablet,extended release RxNorm: 835822 1 Tablet(s) Oral two times a day 12/05/2019 01/01/2020 Inactive Medrol (Aníbal) 4 mg tablets in a dose pack RxNorm: 991216 6 Tablet(s) Oral QD --then as directed 11/30/2019 12/05/2019 Inactive MS Contin 200 mg tablet,extended release RxNorm: 578049 1 Tablet(s) Oral two times a day 11/29/2019 12/04/2019 Inactive cyclobenzaprine 10 mg tablet RxNorm: 866171 TAKE ONE TA BLET BY MOUTH THREE TIMES A DAY NEEDED 11/21/2019 01/30/2020 Inactive MS Contin 200 mg tablet,extended release RxNorm: 013826 1 Tablet(s) Oral two times a day replaces 100mg dose 11/03/2019 11/02/2019 Inactive MS Contin 200 mg tablet,extended release RxNorm: 945470 1 Tablet(s) Oral two times a day replaces 100mg dose 11/03/2019 11/29/2019 Inactive ferrous sulfate 325 mg (65 mg iron) tablet RxNorm: 173205 1 Tab let(s) Oral QD 10/30/2019 No Stop Date Active MS Contin 100 mg tablet,extended release RxNorm: 016472 1 Table t(s) Oral QD 10/30/2019 10/29/2019 Inactive MS Contin 100 mg tablet,extended release RxNorm: 167905 1 Table t(s) Oral QD 10/30/2019 11/02/2019 Inactive pantoprazole 40 mg tablet,delayed release RxNorm: 666719 1 Tabl et(s) Oral QD 10/25/2019 No Stop Date Active Minipress 2 mg capsule RxNorm: 913299 1 Capsule(s) Oral QAM and 3 at bedtime 10/25/2019 No Stop Date Active Lancets, Super Thin RxNorm: 1 Unit Dose Miscellaneous QD 9 11/27/2020 Active Cymbalta 60 mg capsule,delayed release RxNorm: 373254 1 Capsule (s) Oral QAM 10/25/2019 No Stop Date Active Cymbalta 30 mg capsule,delayed release RxNorm: 438588 1 Capsule (s) Oral QAM 10/25/2019 No Stop Date Active Relistor 150 mg tablet RxNorm: 8258919 TAKE THREE TABLETS BY BENOIT TH DAILY 10/25/2019 03/12/2020 Inactive oxycodone 15 mg tablet RxNorm: 6896237 1 Tablet(s) Oral four times a day as needed for pain 10/25/2019 11/28/2019 Inactive metformin 500 mg tablet RxNorm: 416996 1 Tablet(s) Oral QD 10/25/20 19 01/03/2020 Inactive levothyroxine 25 mcg tablet RxNorm: 645189 1 Tablet(s) Oral QAM 02/201912/19/2019 Inactive levothyroxine 25 mcg tablet RxNorm: 241945 1 Tablet(s) Oral QAM 02/201910/24/2019 Inactive MS Contin 100 mg tablet,extended release RxNorm: 376300 1 Tablet(s) Oral two times a day replaces fentanyl 10/25/2019 10/25/2019 Inactive Premarin 0.45 mg tablet RxNorm: 868162 TAKE ONE TABLET BY MOUTH DAILY 10/24/2019 01/30/2020 Inactive Duragesic 100 mcg/hr transdermal patch RxNorm: 078696 2 Application TD Q48H for pain 10/18/2019 10/24/2019 Inactive gabapentin 300 mg capsule RxNorm: 169137 TAKE ONE CAPSULE BY [facility] TWICE A DAY 10/16/2019 01/15/2020 Inactive cyclobenzaprine 10 mg tablet RxNorm: 548966 TAKE ONE TA BLET BY MOUTH THREE TIMES A DAY NEEDED 09/27/2019 11/20/2019 Inactive Relistor 150 mg tablet RxNorm: 3289789 TAKE THREE TABLETS BY BENOIT TH DAILY 09/25/2019 10/24/2019 Inactive ProAir HFA 90 mcg/actuation aerosol inhaler RxNorm: 566896 INHALE ONE PUFF BY MOUTH EVERY 4 HOURS FOR WHEEZING OR FOR SHORTNESS OF BREATH 09/25/2019 01/03/2020 Inactive furosemide 40 mg tablet RxNorm: 814425 1 Tablet(s) Oral QAM as needed 09/25/2019 09/25/2019 Inactive oxycodone 15 mg tablet RxNorm: 0688170 1 Tablet(s) PO QID as nee ded for pain 09/21/2019 10/24/2019 Inactive Duragesic 100 mcg/hr transdermal patch RxNorm: 790933 2 Application TD Q48H for pain 09/19/2019 10/17/2019 Inactive Daliresp 500 mcg tablet RxNorm: 0886876 1 Tablet(s) Oral QD 019 02/18/2020 Inactive Relistor 150 mg tablet RxNorm: 0817885 TAKE THREE TABLETS BY BENOIT TH DAILY 07/25/2019 07/30/2019 Inactive cyclobenzaprine 10 mg tablet RxNorm: 653522 TAKE ONE TA BLET BY MOUTH THREE TIMES A DAY NEEDED 07/25/2019 09/22/2019 Inactive potassium chloride ER 20 mEq tablet,extended release RxNorm: 352345 TAKE ONE TABLET BY MOUTH DAILY 07/25/2019 01/07/2020 Inactive fluoxetine 40 mg capsule RxNorm: 585199 TAKE ONE CAPSULE BY BENOIT TH EVERY MORNING 07/11/2019 10/24/2019 Inactive Medrol (Aníbal) 4 mg tablets in a dose pack RxNorm: 712946 6 Tablet(s) PO QD --then as directed 07/10/2019 07/15/2019 Inactive omeprazole 40 mg capsule,delayed release RxNorm: 611736 1 Capsule(s) PO QD for stomach TAKE ONE CAPSULE BY MOUTH DAILY 07/10/2019 10/24/2019 Inactive Augmentin 875 mg-125 mg tablet RxNorm: 413665 1 Tablet(s) PO BID 07/16/2019 Inactive Trulicity 0.75 mg/0.5 mL subcutaneous pen injector RxNorm: 1 651331 0.75 Milliliter(s) SQ weekly 07/05/2019 10/24/2019 Inactive Compazine 10 mg tablet RxNorm: 233194 TAKE ONE TABLET B Y MOUTH FOUR TIMES A DAY NEEDED FOR NAUSEA 06/20/2019 07/19/2019 Inactive ProAir HFA 90 mcg/actuation aerosol inhaler RxNorm: 905766 INHALE ONE PUFF BY MOUTH EVERY 4 HOURS FOR WHEEZING OR FOR SHORTNESS OF BREATH 06/20/2019 06/23/2019 Inactive Daliresp 500 mcg tablet RxNorm: 2284612 TAKE ONE TABLET BY MOUTH DAILY 06/12/2019 09/10/2019 Inactive okbhaysz-ytxvpozyv-iglmbxpim 3.5 mg/mL-10,000 unit/mL- 1 % ear solution RxNorm: 316580 4 Drop(s) otic (ear) TID to left ear 06/05/2019 10/24/2019 Inac tive furosemide 40 mg tablet RxNorm: 810524 TAKE ONE TABLET BY MOUTH EVERY MORNING 05/26/2019 07/09/2019 Inactive Duragesic 100 mcg/hr transdermal patch RxNorm: 745997 2 Application TD Q48H for pain 05/16/2019 06/14/2019 Inactive oxycodone 15 mg tablet RxNorm: 4763647 1 Tablet(s) PO QID as nee ded for pain 05/10/2019 09/20/2019 Inactive doxycycline hyclate 100 mg capsule RxNorm: 7968995 1 Capsule(s) PO BID 05/03/2019 05/12/2019 Inactive prednisone 20 mg tablet RxNorm: 545889 1 Tablet(s) PO T ID for 3 days then 1 po BID for 3 days then one daily for 3 days 05/03/2019 07/11/2019 Inactiv e Ozempic 0.25 mg or 0.5 mg (2 mg/1.5 mL) subcutaneous p en injector RxNorm: 5458168 0.5 Milligram(s) SQ QW 05/03/2019 07/09/2019 Inactive fluconazole 100 mg tablet RxNorm: 627385 1 Tablet(s) PO QD 05/03/2005/07/2019 Inactive Premarin 0.45 mg tablet RxNorm: 050189 TAKE ONE TABLET BY MOUTH DAILY 05/03/2019 10/23/2019 Inactive potassium chloride ER 20 mEq tablet,extended release RxNorm: 592429 1 Tablet(s) PO QD 04/27/2019 07/25/2019 Inactive potassium chloride ER 20 mEq tablet,extended release RxNorm: 896387 1 Tablet(s) PO QD 04/25/2019 04/26/2019 Inactive Compazine 10 mg tablet RxNorm: 043926 1 Tablet(s) PO QID as nee ded for nausea 04/25/2019 05/04/2019 Inactive ProAir HFA 90 mcg/actuation aerosol inhaler RxNorm: 843903 INHALE ONE PUFF BY MOUTH EVERY 4 HOURS FOR WHEEZING OR FOR SHORTNESS OF BREATH 04/12/2019 06/10/2019 Inactive Medrol (Aínbal) 4 mg tablets in a dose pack RxNorm: 841282 6 Tablet(s) PO QD --then as directed 04/11/2019 04/16/2019 Inactive Symbicort 160 mcg-4.5 mcg/actuation HFA aerosol inhaler RxNo rm: 1886867 2 Puff(s) INH BID 04/10/2019 10/06/2019 Inactive levothyroxine 50 mcg tablet RxNorm: 785944 1 Tablet(s) PO QD 201810/24/2019 Inactive gabapentin 300 mg capsule RxNorm: 983452 1 Capsule(s) PO BID 201810/02/2019 Inactive Symbicort 160 mcg-4.5 mcg/actuation HFA aerosol inhaler RxNo rm: 8685744 2 Puff(s) INH BID 04/06/2019 04/09/2019 Inactive oxycodone 15 mg tablet RxNorm: 4113939 1 Tablet(s) PO QID as nee ded for pain 04/05/2019 05/09/2019 Inactive levothyroxine 50 mcg tablet RxNorm: 233390 1 Tablet(s) PO QD 201804/09/2019 Inactive furosemide 40 mg tablet RxNorm: 957301 TAKE ONE TABLET BY MOUTH EVERY MORNING 03/21/2019 04/19/2019 Inactive levothyroxine 50 mcg tablet RxNorm: 371062 TAKE ONE TABLET BY M OUTH DAILY 03/21/2019 03/27/2019 Inactive Duragesic 100 mcg/hr transdermal patch RxNorm: 108576 2 Application TD Q48H for pain 03/13/2019 04/11/2019 Inactive oxycodone 15 mg tablet RxNorm: 1377986 1 Tablet(s) PO QID as nee ded for pain 03/06/2019 04/04/2019 Inactive Relistor 150 mg tablet RxNorm: 6323310 3 Tablet(s) PO QD 02/28/2019 0 05/28/2019 Inactive cyclobenzaprine 10 mg tablet RxNorm: 585287 1 Tablet(s) PO TID as needed 02/28/2019 05/28/2019 Inactive phentermine 37.5 mg tablet RxNorm: 410083 1 Tablet(s) PO QAM 201803/15/2019 Inactive Duragesic 100 mcg/hr transdermal patch RxNorm: 561039 2 Application TD Q48H for pain 02/09/2019 03/10/2019 Inactive Daliresp 500 mcg tablet RxNorm: 9830796 TAKE ONE TABLET BY MOUTH DAILY 01/31/2019 05/30/2019 Inactive Premarin 0.45 mg tablet RxNorm: 018787 1 Tablet(s) PO QD 01/31/2019 0 04/30/2019 Inactive fluoxetine 40 mg capsule RxNorm: 678419 Capsule(s) TAKE ONE CAPSULE BY MOUTH EVERY MORNING 01/31/2019 04/30/2019 Inactive levothyroxine 50 mcg tablet RxNorm: 242688 1 Tablet(s) PO QD 201804/10/2019 Inactive follow up in 3 weeks levothyroxine 50 mcg tablet RxNorm: 589907 1 Tablet(s) PO QD 201801/25/2019 Inactive follow up in 3 weeks potassium chloride ER 20 mEq tablet,extended release RxNorm: 859935 2 Tablet(s) PO BID 01/23/2019 01/08/2020 Inactive Synthroid 50 mcg tablet RxNorm: 993889 TAKE ONE TABLET BY MOUTH DAILY 01/16/2019 10/24/2019 Inactive potassium chloride ER 20 mEq tablet,extended release RxNorm: 732722 2 Tablet(s) PO BID 01/04/2019 01/22/2019 Inactive ProAir HFA 90 mcg/actuation aerosol inhaler RxNorm: 798637 INHALE ONE PUFF BY MOUTH EVERY 4 HOURS FOR WHEEZING OR SHORTNESS OF BREATH 01/04/201902/20 Inactive Request already responded to by other me ans (e.g. phone or fax) ProAir HFA 90 mcg/actuation aerosol inhaler RxNorm: 0523036 INHALE ONE PUFF BY MOUTH EVERY 4 HOURS FOR WHEEZING OR SHORTNESS OF BREATH 01/02/201912/23 Inactive gabapentin 300 mg capsule RxNorm: 916191 TAKE ONE CAPSULE BY MO UTH TWICE A DAY 12/30/2018 04/06/2019 Inactive furosemide 40 mg tablet RxNorm: 481767 1 Tablet(s) PO QAM 12/26/2018 02/23/2019 Inactive Compazine 10 mg tablet RxNorm: 393976 1 Tablet(s) PO QID as nee ded for nausea 12/07/2018 12/16/2018 Inactive metolazone 2.5 mg tablet RxNorm: 545716 TAKE ONE TABLET BY MOUT H EVERY MORNING 12/05/2018 01/03/2019 Inactive metformin ER 500 mg tablet,extended release 24 hr RxNorm: 86 0975 TAKE ONE TABLET BY MOUTH DAILY 12/05/2018 01/31/2020 Inactive Synthroid 50 mcg tablet RxNorm: 522549 1 Tablet(s) PO QD 11/25/2018 0 01/03/2019 Inactive DC any other synthroid strengths. Should be 50mcg only cyclobenzaprine 10 mg tablet RxNorm: 782031 TAKE ONE TA BLET BY MOUTH THREE TIMES A DAY NEEDED 11/09/2018 02/06/2019 Inactive metolazone 2.5 mg tablet RxNorm: 072714 1 Tablet(s) PO QAM repl aces 5mg dose 11/02/2018 12/01/2018 Inactive potassium chloride ER 20 mEq tablet,extended release RxNorm: 885199 2 Tablet(s) PO QD 2018 01/02/2019 Inactive Compazine 10 mg tablet RxNorm: 360735 1 Tablet(s) PO QID as nee ded for nausea 10/18/2018 12/07/2018 Inactive furosemide 40 mg tablet RxNorm: 962028 1 Tablet(s) PO QAM 10/12/2018 12/10/2018 Inactive ondansetron 8 mg disintegrating tablet RxNorm: 579239 1 Tablet(s) PO Q6H as needed 10/11/2018 10/17/2018 Inactive scopolamine 1 mg over 3 days transdermal patch RxNorm: 76664 2 1 Application TD behind ear. Take off after three days 10/11/2018 01/02/2019 Inactive furosemide 40 mg tablet RxNorm: 066201 1 Tablet(s) PO QAM 10/10/2018 12/26/2018 Inactive metolazone 5 mg tablet RxNorm: 705402 1 Tablet(s) PO QAM 10/06/2018 1 01/03/2018 Inactive metolazone 5 mg tablet RxNorm: 028185 1 Tablet(s) PO QAM 10/06/2018 1 12/05/2017 Inactive Xtampza ER 36 mg capsule sprinkle RxNorm: 2403897 1 Capsule(s) P O BID 10/05/2018 01/02/2019 Inactive Xtampza ER 36 mg capsule sprinkle RxNorm: 4308894 1 Capsule(s) P O BID 10/05/2018 02/12/2019 Inactive omeprazole 40 mg capsule,delayed release RxNorm: 552406 TAKE ONE CAPSULE BY MOUTH DAILY 10/03/2018 12/31/2018 Inactive Duragesic 100 mcg/hr transdermal patch RxNorm: 971789 2 Application TD Q48H for pain 09/30/2018 10/29/2018 Inactive Synthroid 50 mcg tablet RxNorm: 815185 1 Tablet(s) PO QD 09/29/2018 0 11/25/2018 Inactive DC any other synthroid strengths. Should be 50mcg only Synthroid 50 mcg tablet RxNorm: 165215 1 Tablet(s) PO QD 09/29/2018 1 11/28/2017 Inactive furosemide 40 mg tablet RxNorm: 563244 2 Tablet(s) PO Q AM for 1 week then every other day for 2 weeks 09/27/2018 10/12/2018 Inactive fluoxetine 40 mg capsule RxNorm: 416795 2 Capsule(s) PO QD 09/27/20 18 10/17/2018 Inactive potassium chloride ER 20 mEq tablet,extended release RxNorm: 097450 2 Tablet(s) PO QD for 1 week then every other day for 2 weeks 09/27/2018 2018 Inactive ProAir HFA 90 mcg/actuation aerosol inhaler RxNorm: 2275129 INHALE ONE PUFF BY MOUTH EVERY 4 HOURS FOR WHEEZING OR SHORTNESS OF BREATH 09/26/201811/23 Inactive Synthroid 75 mcg tablet RxNorm: 777434 1 Tablet(s) PO QD 09/09/2018 1 Inactive Synthroid 75 mcg tablet RxNorm: 277462 1 Tablet(s) PO QD 09/09/2018 1 11/28/2017 Inactive furosemide 40 mg tablet RxNorm: 216865 1 Tablet(s) PO QD 09/06/2018 1 Inactive potassium chloride ER 20 mEq tablet,extended release RxNorm: 173068 1 Tablet(s) PO QD 09/06/2018 09/19/2018 Inactive Duragesic 100 mcg/hr transdermal patch RxNorm: 425343 2 Application TD Q48H for pain 08/30/2018 09/28/2018 Inactive gabapentin 300 mg capsule RxNorm: 919121 TAKE ONE CAPSULE BY [facility] TWICE A DAY 08/23/2018 12/20/2018 Inactive Daliresp 500 mcg tablet RxNorm: 2296964 TAKE ONE TABLET BY MOUTH DAILY 08/23/2018 01/19/2019 Inactive Pulmicort 1 mg/2 mL suspension for nebulization RxNorm: 6168 19 USE ONE VIAL VIA NEBULIZER BY MOUTH TWICE A DAY 08/23/2018 07/11/2019 Inactive Synthroid 88 mcg tablet RxNorm: 544136 1 Tablet(s) PO QD 08/19/2018 1 Inactive Medrol (Aníbal) 4 mg tablets in a dose pack RxNorm: 901578 Tablet(s) PO take as directed 08/16/2018 09/05/2018 Inactive Relistor 150 mg tablet RxNorm: 3646340 3 Tablet(s) PO QD 08/16/2018 1 Inactive Zithromax Z-Aníbal 250 mg tablet RxNorm: 618863 Tablet(s) PO take as directed 08/16/2018 09/05/2018 Inactive cyclobenzaprine 10 mg tablet RxNorm: 991257 1 Tablet(s) PO TID as needed 08/16/2018 11/08/2018 Inactive Synthroid 88 mcg tablet RxNorm: 701270 1 Tablet(s) PO Q D NEEDS UPDATED LABS BEFORE FURTHER REFILLS 08/08/2018 08/19/2018 Inactive Premarin 0.45 mg tablet RxNorm: 507769 1 Tablet(s) PO QD 08/03/2018 0 01/31/2019 Inactive fluoxetine 20 mg capsule RxNorm: 151821 TAKE ONE CAPSULE BY BENOIT TH DAILY 08/03/2018 09/26/2018 Inactive Xtampza ER 36 mg capsule sprinkle RxNorm: 1211049 1 Capsule(s) P O BID 08/03/2018 09/01/2018 Inactive metformin ER 500 mg tablet,extended release 24 hr RxNorm: 86 0975 1 Tablet(s) PO QD 08/03/2018 10/31/2018 Inactive Symbicort 160 mcg-4.5 mcg/actuation HFA aerosol inhaler RxNo rm: 3144502 2 Puff(s) INH BID 08/03/2018 01/29/2019 Inactive Duragesic 100 mcg/hr transdermal patch RxNorm: 010246 2 Application TD Q48H for pain 07/29/2018 08/27/2018 Inactive ProAir HFA 90 mcg/actuation aerosol inhaler RxNorm: 811067 INHALE TWO PUFFS BY MOUTH EVERY 4 HOURS FOR WHEEZING OR SHORTNESS OF BREATH 07/27/201802/2018 Inactive Relistor 150 mg tablet RxNorm: 2925617 3 Tablet(s) PO QD 07/20/2018 0 08/15/2018 Inactive metformin ER 500 mg tablet,extended release 24 hr RxNorm: 86 0975 TAKE ONE TABLET BY MOUTH DAILY 07/08/2018 08/02/2018 Inactive fluoxetine 40 mg capsule RxNorm: 121529 TAKE ONE CAPSULE BY BENOIT TH EVERY MORNING 07/08/2018 10/05/2018 Inactive Xtampza ER 18 mg capsule sprinkle RxNorm: 0154125 1 Capsule(s) P O BID 07/08/2018 08/02/2018 Inactive Relistor 150 mg tablet RxNorm: 4283911 3 Tablet(s) PO QD 07/08/2018 0 07/12/2018 Inactive Synthroid 88 mcg tablet RxNorm: 849640 1 Tablet(s) PO Q D NEEDS UPDATED LABS BEFORE FURTHER REFILLS 06/23/2018 07/07/2018 Inactive fluoxetine 40 mg capsule RxNorm: 258228 TAKE ONE CAPSULE BY BENOIT TH EVERY MORNING 06/15/2018 09/26/2018 Inactive orphenadrine citrate ER 100 mg tablet,extended release RxNor m: 591521 TAKE ONE TABLET BY MOUTH TWICE A DAY FOR MUSCLE SPASM 06/15/2018 08/15/2018 Renu ctive Duragesic 100 mcg/hr transdermal patch RxNorm: 526246 2 Application TD Q48H for pain 05/30/2018 06/28/2018 Inactive ProAir HFA 90 mcg/actuation aerosol inhaler RxNorm: 496155 INHALE TWO PUFFS BY MOUTH EVERY 4 HOURS FOR WHEEZING OR SHORTNESS OF BREATH 05/19/201803/2018 Inactive Chantix Continuing Month Box 1 mg tablet RxNorm: 464107 TAKE ONE TABLET BY MOUTH TWICE A DAY 05/19/2018 08/15/2018 Inactive oxycodone 10 mg tablet RxNorm: 7417398 1-2 Tablet(s) PO QID as n eeded for pain 05/19/2018 07/07/2018 Inactive gabapentin 300 mg capsule RxNorm: 584276 TAKE ONE CAPSULE BY MO UTH TWICE A DAY 05/18/2018 07/16/2018 Inactive ProAir HFA 90 mcg/actuation aerosol inhaler RxNorm: 593808 INHALE TWO PUFFS BY MOUTH EVERY 4 HOURS FOR WHEEZING OR SHORTNESS OF BREATH 05/04/201804/23 Inactive Augmentin 500 mg-125 mg tablet RxNorm: 312780 1 Tablet(s) PO BID 05/03/2018 Inactive oxycodone 10 mg tablet RxNorm: 9990960 1-2 Tablet(s) PO QID as n eeded for pain 04/21/2018 05/18/2018 Inactive Synthroid 88 mcg tablet RxNorm: 059474 1 Tablet(s) PO QD 04/15/2018 0 08/08/2018 Inactive Symbicort 160 mcg-4.5 mcg/actuation HFA aerosol inhaler RxNo rm: 0662771 2 Puff(s) INH BID 04/15/2018 04/10/2019 Inactive Premarin 0.45 mg tablet RxNorm: 591703 1 Tablet(s) PO QD 04/15/2018 0 08/03/2018 Inactive ProAir HFA 90 mcg/actuation aerosol inhaler RxNorm: 940528 2 Puff(s) INH Q4H prn for wheezing or shortness of breath 04/15/2018 05/03/2018 Inactive metformin ER 500 mg tablet,extended release 24 hr RxNorm: 86 0975 1 Tablet(s) PO QD 04/11/2018 07/07/2018 Inactive omeprazole 40 mg capsule,delayed release RxNorm: 054743 TAKE ONE CAPSULE BY MOUTH DAILY 04/10/2018 06/08/2018 Inactive Synthroid 88 mcg tablet RxNorm: 833766 1 Tablet(s) PO QD 04/04/2018 0 04/14/2018 Inactive Synthroid 88 mcg tablet RxNorm: 737257 1 Tablet(s) PO QD 04/04/2018 0 04/03/2018 Inactive orphenadrine citrate ER 100 mg tablet,extended release RxNor m: 394227 1 Tablet(s) PO BID for muscle spasm 04/04/2018 05/03/2018 Inactive metformin ER 500 mg tablet,extended release 24 hr RxNorm: 86 0975 1 Tablet(s) PO QD NEEDS UPDATED LABS 03/31/2018 04/11/2018 Inactive doxycycline hyclate 100 mg capsule RxNorm: 4637877 1 Capsule(s) PO BID 03/31/2018 04/09/2018 Inactive prednisone 20 mg tablet RxNorm: 071149 3 Tablet(s) PO T ID for 3 days then 1 po BID for 3 days then one daily for 3 days 03/31/2018 07/06/2018 Inactiv roxie Chantix Continuing Month Box 1 mg tablet RxNorm: 555214 TAKE ONE TABLET BY MOUTH TWICE A DAY 03/25/2018 03/30/2018 Inactive oxycodone 10 mg tablet RxNorm: 2860334 1-2 Tablet(s) PO QID as n eeded for pain 03/21/2018 04/20/2018 Inactive Daliresp 500 mcg tablet RxNorm: 4892161 1 Tablet(s) PO QD 03/15/2018 08/22/2018 Inactive metformin ER 500 mg tablet,extended release 24 hr RxNorm: 86 0975 1 Tablet(s) PO QD NEEDS UPDATED LABS 03/14/2018 03/31/2018 Inactive nystatin 100,000 unit/mL oral suspension RxNorm: 387993 5 Chio liter(s) PO QID 03/02/2018 03/15/2018 Inactive nystatin 100,000 unit/mL oral suspension RxNorm: 085037 5 Chio liter(s) PO QID 03/02/2018 03/01/2018 Inactive oxycodone 10 mg tablet RxNorm: 9336571 1-2 Tablet(s) PO QID as n eeded for pain 02/16/2018 03/20/2018 Inactive fluoxetine 20 mg capsule RxNorm: 314430 1 Capsule(s) PO QD 02/15/20 18 08/02/2018 Inactive metformin ER 500 mg tablet,extended release 24 hr RxNorm: 86 0975 1 Tablet(s) PO QD Needs updated labs 02/14/2018 03/14/2018 Inactive cefdinir 300 mg capsule RxNorm: 787633 1 Capsule(s) PO BID 01/27/20 18 02/04/2018 Inactive orphenadrine citrate ER 100 mg tablet,extended release RxNor m: 159162 1 Tablet(s) PO BID for muscle spasm 01/26/2018 04/04/2018 Inactive gabapentin 300 mg capsule RxNorm: 767910 1 Capsule(s) PO BID 201704/17/2018 Inactive oxycodone 10 mg tablet RxNorm: 2091284 1-2 Tablet(s) PO QID as n eeded for pain 01/17/2018 02/15/2018 Inactive Duragesic 100 mcg/hr transdermal patch RxNorm: 269096 2 Application TD Q48H for pain 01/17/2018 02/15/2018 Inactive gabapentin 300 mg capsule RxNorm: 746696 TAKE ONE CAPSULE BY MO UTH TWICE A DAY 12/20/2017 01/18/2018 Inactive fluoxetine 40 mg capsule RxNorm: 249648 TAKE ONE CAPSULE BY BENOIT TH EVERY MORNING 12/15/2017 03/14/2018 Inactive OneTouch Ultra Test strips RxNorm: TEST DAILY 11/04/2017 02/01/2018 Inactive gabapentin 300 mg capsule RxNorm: 302097 1 Capsule(s) P O TID replaces BID dosing 10/26/2017 02/22/2018 Inactive oxycodone 10 mg tablet RxNorm: 9930304 1-2 Tablet(s) PO QID as n eeded for pain 10/18/2017 01/16/2018 Inactive Duragesic 100 mcg/hr transdermal patch RxNorm: 994392 2 Application TD Q48H for pain 10/18/2017 11/16/2017 Inactive gabapentin 300 mg capsule RxNorm: 363566 1 Capsule(s) PO BID 201610/25/2017 Inactive Abilify 5 mg tablet RxNorm: 640732 1 Tablet(s) PO QAM 09/23/201702/2017 Inactive gabapentin 300 mg capsule RxNorm: 046580 1 Capsule(s) PO BID 201610/17/2017 Inactive oxycodone 10 mg tablet RxNorm: 5718526 1-2 Tablet(s) PO QID as n eeded for pain 09/15/2017 10/17/2017 Inactive Duragesic 100 mcg/hr transdermal patch RxNorm: 512558 2 Application TD Q48H for pain 09/15/2017 10/14/2017 Inactive Duragesic 100 mcg/hr transdermal patch RxNorm: 779153 2 Application TD Q48H for pain 09/15/2017 10/24/2019 Inactive oxycodone 10 mg tablet RxNorm: 8029556 1-2 Tablet(s) PO QID as n eeded for pain 09/15/2017 08/15/2018 Inactive Daliresp 500 mcg tablet RxNorm: 4656053 1 Tablet(s) PO QD 09/06/2017 03/15/2018 Inactive Ventolin HFA 90 mcg/actuation aerosol inhaler RxNorm: 648372 2 Puff(s) INH Q4H as needed 09/02/2017 05/19/2018 Inactive oxycodone 10 mg tablet RxNorm: 2063255 1-2 Tablet(s) PO QID as n eeded for pain 08/17/2017 09/14/2017 Inactive Duragesic 100 mcg/hr transdermal patch RxNorm: 717200 2 Application TD Q48H for pain 08/17/2017 09/14/2017 Inactive fluoxetine 40 mg capsule RxNorm: 786702 Capsule(s) TAKE ONE CAPSULE BY MOUTH EVERY MORNING 08/17/2017 12/14/2017 Inactive Pulmicort 1 mg/2 mL suspension for nebulization RxNorm: 6168 19 1 Unit Dose INH BID Dx: COPD (J44.9) 08/16/2017 08/22/2018 Inactive gabapentin 300 mg capsule RxNorm: 319267 1 Capsule(s) PO QHS 201610/18/2017 Inactive fluoxetine 20 mg capsule RxNorm: 681776 1 Capsule(s) PO QD 08/12/20 17 02/14/2018 Inactive Abilify 2 mg tablet RxNorm: 510506 1 Tablet(s) PO QD TA KE ONE TABLET BY MOUTH DAILY 08/12/2017 10/25/2017 Inactive metformin ER 500 mg tablet,extended release 24 hr RxNorm: 86 0975 1 Tablet(s) PO QD 08/10/2017 02/14/2018 Inactive Synthroid 112 mcg tablet RxNorm: 333887 1 Tablet(s) PO QD 08/10/2017 04/15/2018 Inactive oxycodone 10 mg tablet RxNorm: 3303215 1-2 Tablet(s) PO QID as n eeded for pain 07/19/2017 08/16/2017 Inactive Duragesic 100 mcg/hr transdermal patch RxNorm: 692397 2 Application TD Q48H for pain 07/19/2017 08/16/2017 Inactive Ventolin HFA 90 mcg/actuation aerosol inhaler RxNorm: 216328 2 Puff(s) INH Q4H as needed 07/12/2017 09/02/2017 Inactive Abilify 2 mg tablet RxNorm: 039964 1 Tablet(s) PO QD TA KE ONE TABLET BY MOUTH DAILY 07/06/2017 08/11/2017 Inactive gabapentin 800 mg tablet RxNorm: 461640 1 Tablet(s) PO TID 06/22/2007/05/2017 Inactive Chantix Starting Month Box 0.5 mg (11)-1 mg (42) table ts in dose pack RxNorm: 325551 TAKE BY MOUTH INSTRUCTED - PER PACKAGE INSTRUCTIONS 06/0707/04/2017 Inactive Ventolin HFA 90 mcg/actuation aerosol inhaler RxNorm: 772617 2 Puff(s) INH Q4H as needed 05/26/2017 07/12/2017 Inactive Duragesic 100 mcg/hr transdermal patch RxNorm: 728253 2 Application TD Q48H for pain 05/19/2017 06/17/2017 Inactive oxycodone 10 mg tablet RxNorm: 3810378 1-2 Tablet(s) PO QID as n eeded for pain 05/19/2017 07/18/2017 Inactive Abilify 2 mg tablet RxNorm: 675943 TAKE ONE TABLET BY MOUTH DAILY 0 05/10/2017 07/05/2017 Inactive Synthroid 112 mcg tablet RxNorm: 310494 1 Tablet(s) PO QD 05/06/2017 08/10/2017 Inactive metformin ER 500 mg tablet,extended release 24 hr RxNorm: 86 0975 1 Tablet(s) PO QD 05/06/2017 08/10/2017 Inactive Topamax 100 mg tablet RxNorm: 903842 1 Tablet(s) PO QHS 05/06/2017 Inactive Premarin 0.45 mg tablet RxNorm: 701771 1 Tablet(s) PO QD 05/06/2017 0 04/15/2018 Inactive orphenadrine citrate ER 100 mg tablet,extended release RxNor m: 073166 1 Tablet(s) PO TID for muscle spasm--replaces methocarbamol 04/29/2017 Inactive oxycodone 10 mg tablet RxNorm: 2400764 1-2 Tablet(s) PO QID as n eeded for pain 04/21/2017 05/18/2017 Inactive Duragesic 100 mcg/hr transdermal patch RxNorm: 028563 2 Application TD Q48H for pain 04/21/2017 05/18/2017 Inactive fluoxetine 40 mg capsule RxNorm: 775409 Capsule(s) TAKE ONE CAPSULE BY MOUTH EVERY MORNING 04/20/2017 08/17/2017 Inactive Ventolin HFA 90 mcg/actuation aerosol inhaler RxNorm: 728921 2 Puff(s) INH Q4H as needed 04/05/2017 05/26/2017 Inactive Symbicort 160 mcg-4.5 mcg/actuation HFA aerosol inhaler RxNo rm: 9112709 2 Puff(s) INH BID 03/30/2017 04/15/2018 Inactive Spiriva with HandiHaler 18 mcg and inhalation capsules RxNor m: 762000 1 Capsule(s) INH QD USING HANDIHALER 03/30/2017 02/12/2019 Inactive Duragesic 100 mcg/hr transdermal patch RxNorm: 958720 2 Application TD Q48H for pain 03/18/2017 04/16/2017 Inactive oxycodone 10 mg tablet RxNorm: 9156717 1-2 Tablet(s) PO QID as n eeded for pain 03/18/2017 04/20/2017 Inactive metformin ER 500 mg tablet,extended release 24 hr RxNorm: 86 0975 Tablet(s) TAKE ONE TABLET BY MOUTH DAILY 03/01/2017 05/06/2017 Inactive Premarin 0.45 mg tablet RxNorm: 152656 Tablet(s) TAKE ONE TABLE T BY MOUTH DAILY 03/01/2017 05/06/2017 Inactive Synthroid 112 mcg tablet RxNorm: 154406 Tablet(s) TAKE ONE TABLET BY MOUTH DAILY 03/01/2017 05/06/2017 Inactive Daliresp 500 mcg tablet RxNorm: 1220760 1 Tablet(s) PO QD 03/01/2017 09/06/2017 Inactive 16.2 mg-0.1037 mg-0.0194 mg tablet RxNorm: 3223256 Tablet(s) PO PRN for gas and cramping 02/23/2017 04/28/2017 Inactive TAKE TWO TABLET S BY MOUTH THREE TIMES A DAY NEEDED FOR GAS AND CRAMPING gabapentin 800 mg tablet RxNorm: 838506 1 Tablet(s) PO TID repl aces 600mg 02/23/2017 04/28/2017 Inactive Duragesic 100 mcg/hr transdermal patch RxNorm: 809217 2 Application TD Q48H for pain 02/17/2017 03/17/2017 Inactive fluoxetine 20 mg capsule RxNorm: 615570 1 Capsule(s) PO QD 02/18/20 17 08/12/2017 Inactive oxycodone 20 mg tablet RxNorm: 3824468 1 Tablet(s) PO QID as nee ded for pain 02/17/2017 03/17/2017 Inactive Ventolin HFA 90 mcg/actuation aerosol inhaler RxNorm: 196772 INHALE TWO PUFFS BY MOUTH EVERY 4 HOURS NEEDED 02/15/2017 04/05/2017 Inactive Silvadene 1 % topical cream RxNorm: 939933 1 Application TOP BI D to burn area 02/01/2017 09/22/2017 Inactive Topamax 100 mg tablet RxNorm: 602549 TAKE ONE TABLET BY MOUTH EVERY NIGHT AT BEDTIME 01/29/2017 05/06/2017 Inactive Chantix Starting Month Box 0.5 mg (11)-1 mg (42) table ts in dose pack RxNorm: 273249 Tablet(s) PO as directed 01/29/2017 06/01/2017 Inactive Abilify 2 mg tablet RxNorm: 452853 TAKE ONE TABLET BY MOUTH DAILY 0 01/26/2017 04/25/2017 Inactive Chantix Starting Month Box 0.5 mg (11)-1 mg (42) table ts in dose pack RxNorm: 359081 Tablet(s) PO as directed 01/20/2017 01/28/2017 Inactive gabapentin 600 mg tablet RxNorm: 675800 1 Tablet(s) PO TID 01/21/20 17 02/22/2017 Inactive Chantix Continuing Month Box 1 mg tablet RxNorm: 166074 1 Table t(s) PO BID 12/31/2016 06/01/2017 Inactive Spiriva with HandiHaler 18 mcg and inhalation capsules RxNor m: 384019 INHALE THE ENTIRE CONTENTS OF 1 CAPSULE ONCE A DAY USING HANDIHALER 12/31/201607/2017 Inactive Synthroid 112 mcg tablet RxNorm: 023262 TAKE ONE TABLET BY MOUT H DAILY 12/30/2016 03/01/2017 Inactive metformin ER 500 mg tablet,extended release 24 hr RxNorm: 86 0975 TAKE ONE TABLET BY MOUTH DAILY 12/30/2016 03/01/2017 Inactive Premarin 0.45 mg tablet RxNorm: 371355 TAKE ONE TABLET BY MOUTH DAILY 12/30/2016 03/01/2017 Inactive omeprazole 40 mg capsule,delayed release RxNorm: 931304 TAKE ONE CAPSULE BY MOUTH DAILY 12/30/2016 01/25/2018 Inactive Ventolin HFA 90 mcg/actuation aerosol inhaler RxNorm: 864932 INHALE TWO PUFFS BY MOUTH EVERY 4 HOURS NEEDED 12/28/2016 02/13/2017 Inactive fluoxetine 40 mg capsule RxNorm: 746874 TAKE ONE CAPSULE BY BENOIT TH EVERY MORNING 12/15/2016 04/20/2017 Inactive Chantix Continuing Month Box 1 mg tablet RxNorm: 477586 TAKE ONE TABLET BY MOUTH TWICE A DAY 12/04/2016 12/31/2016 Inactive doxycycline hyclate 100 mg capsule RxNorm: 1410986 1 Capsule(s) PO BID 12/01/2016 12/07/2016 Inactive Levaquin 750 mg tablet RxNorm: 804486 1 Tablet(s) PO QD 12/01/2016 Inactive Abilify 2 mg tablet RxNorm: 857669 TAKE ONE TABLET BY MOUTH DAILY 0 11/25/2016 11/30/2016 Inactive Ventolin HFA 90 mcg/actuation aerosol inhaler RxNorm: 680503 INHALE TWO PUFFS BY MOUTH EVERY 4 HOURS NEEDED 11/02/2016 12/19/2016 Inactive Chantix Continuing Month Box 1 mg tablet RxNorm: 585110 Tablet(s) PO as directed 10/30/2016 12/03/2016 Inactive Symbicort 160 mcg-4.5 mcg/actuation HFA aerosol inhaler RxNo rm: 3952815 INHALE TWO PUFFS TWO TIMES A DAY 10/30/2016 03/30/2017 Inactive Abilify 2 mg tablet RxNorm: 135884 1 Tablet(s) PO QD 10/27/201611/24 Inactive amoxicillin 500 mg capsule RxNorm: 401980 1 Capsule(s) PO TID 10/1410/23/2016 Inactive amoxicillin 500 mg capsule RxNorm: 483311 1 Capsule(s) PO TID 10/1410/13/2016 Inactive Synthroid 112 mcg tablet RxNorm: 462331 TAKE ONE TABLET BY MOUT H DAILY 09/28/2016 12/29/2016 Inactive Topamax 100 mg tablet RxNorm: 522974 TAKE ONE TABLET BY MOUTH EVERY NIGHT AT BEDTIME 09/28/2016 01/28/2017 Inactive Premarin 0.45 mg tablet RxNorm: 484539 TAKE ONE TABLET BY MOUTH DAILY 09/28/2016 12/29/2016 Inactive metformin ER 500 mg tablet,extended release 24 hr RxNorm: 86 0975 TAKE ONE TABLET BY MOUTH DAILY 09/28/2016 12/29/2016 Inactive Ventolin HFA 90 mcg/actuation aerosol inhaler RxNorm: 529620 INHALE TWO PUFFS BY MOUTH EVERY 4 HOURS NEEDED 09/22/2016 10/23/2016 Inactive Pulmicort 1 mg/2 mL suspension for nebulization RxNorm: 6168 19 1 Unit Dose INH BID Dx: COPD (J44.9) 09/10/2016 08/16/2017 Inactive Pulmicort 1 mg/2 mL suspension for nebulization RxNorm: 6168 19 1 Unit Dose INH BID 09/10/2016 09/09/2016 Inactive Brovana 15 mcg/2 mL solution for nebulization RxNorm: 729513 1 Unit Dose INH BID Dx: COPD (J44.9) 09/10/2016 01/25/2018 Inactive Brovana 15 mcg/2 mL solution for nebulization RxNorm: 325745 1 Unit Dose INH BID 09/10/2016 09/09/2016 Inactive ipratropium-albuterol 0.5 mg-3 mg(2.5 mg base)/3 mL ne bulization soln RxNorm: 4254525 1 Unit Dose INH Q4H as needed Dx: COPD (J44.9) 09/10/2016 0 02/12/2019 Inactive orphenadrine citrate ER 100 mg tablet,extended release RxNor m: 935398 1 Tablet(s) PO BID for muscle spasm--replaces methocarbamol 09/09/2016 Inactive Chantix Continuing Month Box 1 mg tablet RxNorm: 590291 Tablet(s) PO as directed 09/09/2016 10/30/2016 Inactive orphenadrine citrate ER 100 mg tablet,extended release RxNor m: 356525 1 Tablet(s) PO BID for muscle spasm 09/09/2016 09/08/2016 Inactive Spiriva with HandiHaler 18 mcg and inhalation capsules RxNor m: 967841 INHALE THE ENTIRE CONTENTS OF 1 CAPSULE ONCE A DAY USING HANDIHALER 09/01/201605/2017 Inactive Daliresp 500 mcg tablet RxNorm: 7075890 1 Tablet(s) PO QD 08/27/2016 03/01/2017 Inactive prednisone 20 mg tablet RxNorm: 146273 3 Tablet(s) PO T ID for 3 days then 1 po BID for 3 days then one daily for 3 days 08/26/2016 04/28/2017 Inactiv e Wellbutrin XL 300 mg 24 hr tablet, extended release RxNorm: 416544 TAKE ONE TABLET BY MOUTH EVERY MORNING 07/29/2016 10/26/2016 Inactive gabapentin 600 mg tablet RxNorm: 363417 1 Tablet(s) PO BID 06/26/20 16 12/22/2016 Inactive fluoxetine 40 mg capsule RxNorm: 226811 TAKE ONE CAPSULE BY BENOIT TH EVERY MORNING 06/24/2016 11/20/2016 Inactive Duragesic 100 mcg/hr transdermal patch RxNorm: 188241 2 Application TD Q48H for pain 06/05/2016 07/04/2016 Inactive oxycodone 10 mg tablet RxNorm: 6347633 1-2 Tablet(s) PO QID as n eeded for pain 06/05/2016 03/17/2017 Inactive Belladonna-Phenobarbital 48 mg tablet,extended release RxNor m: 2 Tablet(s) PO TID 06/05/2016 01/19/2017 Inactive Premarin 0.45 mg tablet RxNorm: 895752 TAKE ONE TABLET BY MOUTH DAILY 05/27/2016 09/23/2016 Inactive Topamax 100 mg tablet RxNorm: 009154 TAKE ONE TABLET BY MOUTH EVERY NIGHT AT BEDTIME 05/27/2016 09/27/2016 Inactive Synthroid 112 mcg tablet RxNorm: 314385 TAKE ONE TABLET BY MOUT H DAILY 05/27/2016 09/23/2016 Inactive metformin ER 500 mg tablet,extended release 24 hr RxNorm: 86 0975 TAKE ONE TABLET BY MOUTH DAILY 05/27/2016 09/23/2016 Inactive Symbicort 160 mcg-4.5 mcg/actuation HFA aerosol inhaler RxNo rm: 3087090 INHALE TWO PUFFS TWO TIMES A DAY 05/27/2016 10/23/2016 Inactive Ventolin HFA 90 mcg/actuation aerosol inhaler RxNorm: 442968 INHALE TWO PUFFS BY MOUTH EVERY 4 HOURS NEEDED 05/21/2016 07/07/2016 Inactive omeprazole 40 mg capsule,delayed release RxNorm: 177140 1 Capsu le(s) PO QD 05/06/2016 08/03/2016 Inactive metformin ER 500 mg tablet,extended release 24 hr RxNorm: 86 0975 TAKE ONE TABLET BY MOUTH DAILY 04/23/2016 05/22/2016 Inactive methocarbamol 750 mg tablet RxNorm: 506517 2 Tablet(s) PO TID as needed for muscle spasm 04/23/2016 09/08/2016 Inactive Synthroid 112 mcg tablet RxNorm: 562880 TAKE ONE TABLET BY MOUT H DAILY 04/23/2016 05/22/2016 Inactive Spiriva with HandiHaler 18 mcg and inhalation capsules RxNor m: 467616 INHALE THE ENTIRE CONTENTS OF 1 CAPSULE ONCE A DAY USING HANDIHALER 04/09/201608/2016 Inactive Diflucan 100 mg tablet RxNorm: 813049 1 Tablet(s) PO QD 04/08/2016 Inactive doxycycline hyclate 100 mg capsule RxNorm: 8320678 1 Capsule(s) PO BID 04/08/2016 04/17/2016 Inactive doxycycline hyclate 100 mg capsule RxNorm: 3700670 1 Capsule(s) PO BID 04/08/2016 04/07/2016 Inactive Diflucan 100 mg tablet RxNorm: 568690 1 Tablet(s) PO QD 04/08/2016 Inactive ondansetron HCl 4 mg tablet RxNorm: 664987 1 Tablet(s) PO Q4H as needed for nausea and vomiting 04/08/2016 09/22/2017 Inactive gabapentin 600 mg tablet RxNorm: 469399 TAKE ONE TABLET BY MOUT H TWICE A DAY 03/24/2016 06/25/2016 Inactive Synthroid 112 mcg tablet RxNorm: 800518 TAKE ONE TABLET BY MOUT H DAILY 02/25/2016 04/22/2016 Inactive Levaquin 500 mg tablet RxNorm: 361839 1 Tablet(s) PO QD 01/23/2016 Inactive prednisone 20 mg tablet RxNorm: 947314 1 Tablet(s) PO T ID for 3 days then 1 po BID for 3 days then one daily for 3 days 01/23/2016 08/25/2016 Inactiv e Skigit Ultra Test strips RxNorm: TEST BLOOD SUGAR ONCE DAILY 250.00 01/09/2016 11/04/2017 Inactive methocarbamol 750 mg tablet RxNorm: 615792 2 Tablet(s) PO TID as needed for muscle spasm 01/09/2016 04/23/2016 Inactive lactulose 10 gram/15 mL oral solution RxNorm: 443410 [address](s) PO QD 01/09/2016 09/22/2017 Inactive TAKE 1 TABLESPOON BY MOUTH ONCE DAILY metformin ER 500 mg tablet,extended release 24 hr RxNorm: 86 0975 1 Tablet(s) PO QD 12/26/2015 04/22/2016 Inactive fluoxetine 20 mg capsule RxNorm: 421029 1 Capsule(s) PO QD 12/23/19 16 06/19/2016 Inactive Premarin 0.45 mg tablet RxNorm: 399379 TAKE ONE TABLET BY MOUTH DAILY 12/23/2015 05/20/2016 Inactive fluoxetine 40 mg capsule RxNorm: 988614 1 Capsule(s) PO QD 12/23/19 16 06/19/2016 Inactive TAKE ONE CAPSULE BY MOUTH EV JANKI MORNING azithromycin 500 mg tablet RxNorm: 484385 1 Tablet(s) PO QD 016 12/19/2015 Inactive Zofran 4 mg tablet RxNorm: 988337 1 Tablet(s) PO Q4H prn nausea /vomiting 12/13/2015 03/30/2018 Inactive azithromycin 500 mg tablet RxNorm: 780326 1 Tablet(s) PO QD 016 12/12/2015 Inactive Duragesic 100 mcg/hr transdermal patch RxNorm: 148700 2 Application TD Q48H for pain 12/09/2015 01/07/2016 Inactive oxycodone 10 mg tablet RxNorm: 8525500 1-2 Tablet(s) PO QID as n eeded for pain 12/09/2015 06/04/2016 Inactive Bactroban 2 % topical cream RxNorm: 340406 Application TOP BID 11/2208/25/2016 Inactive doxycycline hyclate 100 mg capsule RxNorm: 4860745 1 Capsule(s) PO BID 12/03/2015 12/12/2015 Inactive Topamax 100 mg tablet RxNorm: 404918 TAKE ONE TABLET BY MOUTH EVERY NIGHT AT BEDTIME 11/25/2015 05/22/2016 Inactive Symbicort 160 mcg-4.5 mcg/actuation HFA aerosol inhaler RxNo rm: 1164093 INHALE TWO PUFFS TWO TIMES A DAY 11/25/2015 05/22/2016 Inactive Synthroid 112 mcg tablet RxNorm: 011892 Tablet(s) TAKE ONE TABLET BY MOUTH DAILY 11/25/2015 02/22/2016 Inactive omeprazole 40 mg capsule,delayed release RxNorm: 859381 1 Capsu le(s) PO QD 11/12/2015 05/05/2016 Inactive oxycodone 10 mg tablet RxNorm: 4822171 1-2 Tablet(s) PO QID as n eeded for pain 11/05/2015 12/08/2015 Inactive Duragesic 100 mcg/hr transdermal patch RxNorm: 355744 2 Application TD Q48H for pain 11/05/2015 12/04/2015 Inactive omeprazole 40 mg capsule,delayed release RxNorm: 580521 1 Capsu le(s) PO QD 10/07/2015 11/11/2015 Inactive Januvia 100 mg tablet RxNorm: 142404 TAKE ONE TABLET BY MOUTH DAILY 09/11/2015 12/25/2015 Inactive Zithromax 500 mg tablet RxNorm: 301437 1 Tablet(s) PO QD 09/10/2015 1 Inactive prednisone 20 mg tablet RxNorm: 039858 1 Tablet(s) PO T ID for 3 days then 1 po BID for 3 days then one daily for 3 days 09/10/2015 08/25/2016 Inactiv e Wellbutrin XL 300 mg 24 hr tablet, extended release RxNorm: 784513 1 Tablet(s) PO QAM 09/10/2015 12/02/2015 Inactive Topamax 100 mg tablet RxNorm: 774309 TAKE ONE TABLET BY MOUTH EVERY NIGHT AT BEDTIME 09/02/2015 11/24/2015 Inactive Synthroid 112 mcg tablet RxNorm: 477739 TAKE ONE TABLET BY MOUT H DAILY 09/02/2015 11/25/2015 Inactive methocarbamol 750 mg tablet RxNorm: 495487 2 Tablet(s) PO TID as needed for muscle spasm 08/15/2015 01/09/2016 Inactive Wellbutrin XL 150 mg 24 hr tablet, extended release RxNorm: 350639 TAKE ONE TABLET BY MOUTH EVERY MORNING 08/13/2015 08/13/2015 Inactive gabapentin 600 mg tablet RxNorm: 368889 1 Tablet(s) PO BID 08/13/20 15 02/08/2016 Inactive Wellbutrin XL 300 mg 24 hr tablet, extended release RxNorm: 042510 1 Tablet(s) PO QAM 08/06/2015 09/09/2015 Inactive Wellbutrin XL 150 mg 24 hr tablet, extended release RxNorm: 840795 1 Tablet(s) PO QAM 07/18/2015 08/05/2015 Inactive prednisone 20 mg tablet RxNorm: 128706 1 Tablet(s) PO BID 07/18/2015 07/22/2015 Inactive doxycycline hyclate 100 mg tablet,delayed release RxNorm: 43 4018 1 Tablet(s) PO BID 07/18/2015 07/27/2015 Inactive pravastatin 40 mg tablet RxNorm: 241957 1 Tablet(s) PO QD NEEDS FASTING LAB 07/15/2015 07/14/2015 Inactive pravastatin 40 mg tablet RxNorm: 689156 1 Tablet(s) PO QD NEEDS FASTING LAB 07/15/2015 01/25/2018 Inactive Ventolin HFA 90 mcg/actuation aerosol inhaler RxNorm: 127090 2 Puff(s) INH Q4H 07/08/2015 07/07/2015 Inactive prn Premarin 0.45 mg tablet RxNorm: 370927 1 Tablet(s) PO QD 07/01/2015 0 12/22/2015 Inactive pravastatin 40 mg tablet RxNorm: 094526 1 Tablet(s) PO QD NEEDS FASTING LAB 06/14/2015 07/15/2015 Inactive Ventolin HFA 90 mcg/actuation aerosol inhaler RxNorm: 2333657 2 Puff(s) INH Q4H 06/06/2015 07/08/2015 Inactive prn albuterol sulfate 2.5 mg/3 mL (0.083 %) solution for n ebulization RxNorm: 636882 1 Unit Dose INH QID 05/30/2015 No Stop Date Active Duragesic 100 mcg/hr transdermal patch RxNorm: 629186 2 Application TD Q48H for pain 04/29/2015 05/28/2015 Inactive gabapentin 600 mg tablet RxNorm: 676653 1 Tablet(s) PO BID 04/11/20 15 08/13/2015 Inactive Onglyza 5 mg tablet RxNorm: 491650 1 Tablet(s) PO QD for blood suga r 04/10/2015 04/15/2015 Inactive [Brand Copay Card: RxBIN:[id number] PCN:CRISTIANA RxGRP:[id number] ID#:[id number]] methocarbamol 750 mg tablet RxNorm: 439939 2 Tablet(s) PO TID as needed for muscle spasm 03/28/2015 08/15/2015 Inactive pravastatin 40 mg tablet RxNorm: 250080 1 Tablet(s) PO QD 03/19/2015 03/18/2015 Inactive pravastatin 40 mg tablet RxNorm: 864492 1 Tablet(s) PO QD 03/19/2015 06/14/2015 Inactive lactulose 10 gram/15 mL oral solution RxNorm: 563207 [address]s) PO QD 03/07/2015 01/09/2016 Inactive TAKE 1 TABLESPOON BY MOUTH ONCE DAILY oxycodone 20 mg tablet RxNorm: 4003289 1 Tablet(s) PO QID as nee ded for pain 03/05/2015 07/08/2015 Inactive Topamax 100 mg tablet RxNorm: 362796 1 Tablet(s) PO QHS TAKE ONE TABLET BY MOUTH AT BEDTIME 02/25/2015 02/12/2019 Inactive metformin ER 500 mg tablet,extended release 24 hr RxNorm: 86 0975 1 Tablet(s) PO QD 02/11/2015 03/04/2015 Inactive take one tablet by mouth every day Daliresp 500 mcg tablet RxNorm: 6380168 1 Tablet(s) PO QD 02/11/2015 08/09/2015 Inactive Endocet 10 mg-325 mg tablet RxNorm: 8643580 1 Tablet(s) PO Q4H as needed for pain 01/23/2015 01/23/2015 Inactive gabapentin 600 mg tablet RxNorm: 987675 1 Tablet(s) PO BID 01/23/20 15 04/11/2015 Inactive methocarbamol 750 mg tablet RxNorm: 857363 2 Tablet(s) PO TID as needed for muscle spasm 01/15/2015 02/13/2015 Inactive fluoxetine 40 mg capsule RxNorm: 294773 1 Capsule(s) PO QD 01/14/20 15 12/23/2015 Inactive TAKE ONE CAPSULE BY MOUTH EV JANKI MORNING fluoxetine 20 mg capsule RxNorm: 419966 1 Capsule(s) PO QD 01/14/20 15 12/23/2015 Inactive Premarin 0.45 mg tablet RxNorm: 543775 1 Tablet(s) PO QD 01/02/2015 0 07/01/2015 Inactive Endocet 10 mg-325 mg tablet RxNorm: 9141209 1-2 Tablet(s) PO Q4H 02/12/2019 Inactive PRN PAIN Duragesic 100 mcg/hr transdermal patch RxNorm: 019250 2 Application TD Q48H for pain 12/25/2014 01/23/2015 Inactive Topamax 100 mg tablet RxNorm: 827458 1 Tablet(s) PO QHS TAKE ONE TABLET BY MOUTH AT BEDTIME 12/25/2014 02/24/2015 Inactive Tudorza Pressair 400 mcg/actuation breath activated RxNorm: 5345591 1 BID INHALE ONE PUFF INTO LUNGS TWO TIMES A DAY 12/17/2014 05/15/2015 Inactive Endocet 10 mg-325 mg tablet RxNorm: 6761445 1-2 Tablet(s) PO Q4H 12/19/2014 Inactive PRN PAIN Duragesic 100 mcg/hr transdermal patch RxNorm: 481671 2 Application TD Q48H for pain 11/20/2014 12/24/2014 Inactive [employer]Touch Ultra Test strips RxNorm: TEST BLOOD SUGAR ONCE DAILY 250.00 11/16/2014 01/08/2016 Inactive omeprazole 40 mg capsule,delayed release RxNorm: 549391 1 Capsu le(s) PO QD 11/13/2014 11/12/2015 Inactive metformin ER 500 mg tablet,extended release 24 hr RxNorm: 86 0975 1 Tablet(s) PO QD 11/12/2014 02/11/2015 Inactive take one tablet by mouth every day Symbicort 160 mcg-4.5 mcg/actuation HFA aerosol inhaler RxNo rm: 3390843 2 Puff(s) INH BID 11/12/2014 03/11/2015 Inactive INHALE 2 PUFFS O RALLY TWO TIMES A DAY gabapentin 800 mg tablet RxNorm: 598983 1 Tablet(s) PO QD TAKE ONE TABLET BY MOUTH ONCE A DAY 10/22/2014 01/01/2015 Inactive Endocet 10 mg-325 mg tablet RxNorm: 8243478 1-2 Tablet(s) PO Q4H 11/15/2014 Inactive PRN PAIN Duragesic 100 mcg/hr transdermal patch RxNorm: 805217 2 Application TD Q48H for pain 10/17/2014 11/19/2014 Inactive gabapentin 800 mg tablet RxNorm: 733423 1 Tablet(s) PO QD TAKE ONE TABLET BY MOUTH ONCE A DAY 10/04/2014 10/21/2014 Inactive Premarin 0.9 mg tablet RxNorm: 145179 1 Tablet(s) PO QD TAKE ONE TABLET BY MOUTH ONCE A DAY 10/04/2014 01/01/2015 Inactive Spiriva with HandiHaler 18 mcg & inhalation capsules RxNorm: 925217 1 Capsule(s) INH QD 10/03/2014 04/30/2015 Inactive Levaquin 500 mg tablet RxNorm: 628432 1 Tablet(s) PO QD 10/03/2014 Inactive prednisone 20 mg tablet RxNorm: 242126 1 Tablet(s) PO QD 10/03/2014 1 12/09/2013 Inactive Duragesic 100 mcg/hr transdermal patch RxNorm: 248573 2 Application TD Q48H for pain 09/18/2014 10/16/2014 Inactive Endocet 10 mg-325 mg tablet RxNorm: 6082283 1-2 Tablet(s) PO Q4H 10/16/2014 Inactive PRN PAIN Synthroid 112 mcg tablet RxNorm: 310298 1 Tablet(s) QD 09/10/2014 Inactive Synthroid 112 mcg tablet RxNorm: 052010 TAKE ONE TABLET BY MOUTH ONE TIME A DAY. NEEDS LABS 09/10/2014 02/06/2015 Inactive omeprazole 40 mg capsule,delayed release RxNorm: 847569 1 Capsu le(s) PO QD 09/03/2014 11/13/2014 Inactive omeprazole 40 mg capsule,delayed release RxNorm: 762322 1 Capsu le(s) PO QD 09/03/2014 09/02/2014 Inactive Spiriva with HandiHaler 18 mcg & inhalation capsules RxNorm: 743417 1 Capsule(s) INH QD 08/27/2014 10/02/2014 Inactive gabapentin 600 mg tablet RxNorm: 523266 1 Tablet(s) PO BID 08/27/20 14 10/22/2014 Inactive Endocet 10 mg-325 mg tablet RxNorm: 0958156 1-2 Tablet(s) PO Q4H 09/17/2014 Inactive PRN PAIN fentanyl 100 mcg/hr transdermal patch RxNorm: 256791 1 Unit Dos e TD QD 08/21/2014 09/19/2014 Inactive Daliresp 500 mcg tablet RxNorm: 0765603 1 Tablet(s) PO QD 08/13/2014 02/11/2015 Inactive Synthroid 112 mcg tablet RxNorm: 075184 TAKE ONE TABLET BY MOUTH ONE TIME A DAY. NEEDS LABS 08/10/2014 09/10/2014 Inactive Endocet 10 mg-325 mg tablet RxNorm: 4582765 1-2 Tablet(s) PO Q4H 08/17/2014 Inactive PRN PAIN Duragesic 100 mcg/hr transdermal patch RxNorm: 777739 2 Application TD Q48H for pain 07/19/2014 09/17/2014 Inactive fluoxetine 40 mg capsule RxNorm: 513243 1 Capsule(s) PO QD 07/17/20 14 01/14/2015 Inactive TAKE ONE CAPSULE BY MOUTH EV JANKI MORNING fluoxetine 20 mg capsule RxNorm: 462453 1 Capsule(s) PO QD 07/17/20 14 01/14/2015 Inactive Spiriva with HandiHaler 18 mcg & inhalation capsules RxNorm: 871636 1 Capsule(s) INH QD 07/17/2014 08/26/2014 Inactive INHALE CONTENTS OF 1 CAPSULE(S) WITH HANDIHALER ONCE DAILY Zofran 4 mg tablet RxNorm: 791351 1 Tablet(s) PO Q4H prn nausea 07/25/2014 Inactive Synthroid 112 mcg tablet RxNorm: 765173 1 Tablet(s) PO QD 07/09/2014 07/09/2014 Inactive methocarbamol 750 mg tablet RxNorm: 881061 2 Tablet(s) PO TID as needed for muscle spasm 07/09/2014 09/06/2014 Inactive Synthroid 112 mcg tablet RxNorm: 257745 1 Tablet(s) PO QD - ile d labs 07/09/2014 08/07/2014 Inactive Medrol (Aníbal) 4 mg tablets in a dose pack RxNorm: 494236 6 Tablet(s) PO QD --then as directed 07/03/2014 07/08/2014 Inactive Tudorza Pressair 400 mcg/actuation breath activated RxNorm: 5033433 1 Puff(s) INH BID 07/03/2014 12/17/2014 Inactive cefdinir 300 mg capsule RxNorm: 501518 1 Capsule(s) PO BID 07/03/20 14 07/12/2014 Inactive Topamax 100 mg tablet RxNorm: 518109 Tablet(s) TAKE ONE TABLET BY MOUTH AT BEDTIME 07/02/2014 02/25/2015 Inactive Duragesic 100 mcg/hr transdermal patch RxNorm: 933143 2 Application TD Q48H for pain 06/25/2014 07/18/2014 Inactive Endocet 10 mg-325 mg tablet RxNorm: 1923368 1-2 Tablet(s) PO Q4H 07/18/2014 Inactive PRN PAIN metformin ER 500 mg tablet,extended release 24 hr RxNorm: 86 0975 1 Tablet(s) PO QD Needs labs 06/18/2014 07/01/2014 Inactive take one tablet by mouth every day Duragesic 100 mcg/hr transdermal patch RxNorm: 867939 2 Application TD Q48H for pain 05/22/2014 06/24/2014 Inactive Synthroid 112 mcg tablet RxNorm: 396140 1 Tablet(s) PO QD 05/22/2014 07/09/2014 Inactive Endocet 10 mg-325 mg tablet RxNorm: 6987305 1-2 Tablet(s) PO Q4H 06/20/2014 Inactive PRN PAIN Endocet 10 mg-325 mg tablet RxNorm: 9217277 1-2 Tablet(s) PO Q4H 05/21/2014 Inactive PRN PAIN Duragesic 100 mcg/hr transdermal patch RxNorm: 692318 2 Application TD Q48H for pain 04/25/2014 05/21/2014 Inactive Daliresp 500 mcg tablet RxNorm: 9478990 1 Tablet(s) PO QD 04/24/2014 08/13/2014 Inactive Symbicort 160 mcg-4.5 mcg/actuation HFA aerosol inhaler RxNo rm: 7411411 2 Puff(s) INH BID 04/24/2014 08/21/2014 Inactive INHALE 2 PUFFS O RALLY TWO TIMES A DAY metformin ER 500 mg tablet,extended release 24 hr RxNorm: 86 0975 1 Tablet(s) PO QD 04/24/2014 11/12/2014 Inactive TAKE ONE TABLET BY MOUTH EVERY DAY [AttnRPh:Saving Apply/Adjudicate RxGRP:LDMGRP RxBIN:[id number] RxPCN:2012 PCode:01 ID#:[id number]] Symbicort 160 mcg-4.5 mcg/actuation HFA aerosol inhaler RxNo rm: 8294499 2 Puff(s) INH BID 04/24/2014 11/12/2014 Inactive INHALE 2 PUFFS O RALLY TWO TIMES A DAY Premarin 0.9 mg tablet RxNorm: 329410 1 Tablet(s) PO QD 04/24/2014 Inactive TAKE ONE TABLET BY MOUTH EVERY DAY metformin ER 500 mg tablet,extended release 24 hr RxNorm: 86 0975 1 Tablet(s) PO QD Needs labs 04/24/2014 06/18/2014 Inactive TAKE ONE TABLET BY MOUTH EVERY DAY [AttnRPh:Saving Apply/Adjudicate RxGRP:LDMGRP RxBIN:[id number] RxPCN:2012 PCode:01 ID#:[id number]] gabapentin 800 mg tablet RxNorm: 189766 1 Tablet(s) PO QD 04/24/2014 10/04/2014 Inactive TAKE ONE TABLET BY MOUTH EVERY DAY Topamax 100 mg tablet RxNorm: 381926 1 Tablet(s) PO QHS 04/17/2014 Inactive Topamax 100 mg tablet RxNorm: 293973 TAKE ONE TABLET BY MOUTH A T BEDTIME 04/17/2014 07/01/2014 Inactive Tudorza Pressair 400 mcg/actuation breath activated RxNorm: 0502393 1 Puff(s) INH BID 04/11/2014 07/02/2014 Inactive Duragesic 100 mcg/hr transdermal patch RxNorm: 246543 2 Application TD Q48H for pain 03/27/2014 04/24/2014 Inactive Endocet 10 mg-325 mg tablet RxNorm: 7176590 1-2 Tablet(s) PO Q4H 04/24/2014 Inactive PRN PAIN Robaxin 750 mg tablet RxNorm: 476226 2 Tablet(s) PO TID as need ed for spasm 02/23/2014 03/28/2015 Inactive Duragesic 100 mcg/hr transdermal patch RxNorm: 568906 2 Application TD Q48H for pain 02/23/2014 No Stop Date Active Endocet 10 mg-325 mg tablet RxNorm: 6530561 1-2 Tablet(s) PO Q4H 03/23/2014 Inactive PRN PAIN Synthroid 112 mcg tablet RxNorm: 607180 1 Tablet(s) PO QD TAKE ONE TABLET BY MOUTH EVERY DAY 02/15/2014 05/22/2014 Inactive Zithromax 500 mg tablet RxNorm: 637660 1 Tablet(s) PO QD 01/30/2014 0 02/05/2014 Inactive Diflucan 100 mg tablet RxNorm: 530924 1 Tablet(s) PO QD 01/30/2014 Inactive prednisone 20 mg tablet RxNorm: 146888 1 Tablet(s) PO BID 01/30/2014 02/05/2014 Inactive fluoxetine 40 mg capsule RxNorm: 093134 1 Capsule(s) PO QD 01/23/20 14 07/16/2014 Inactive TAKE ONE CAPSULE BY MOUTH EV JANKI MORNING fluoxetine 40 mg capsule RxNorm: 850434 1 Capsule(s) PO QD 01/23/20 14 07/17/2014 Inactive TAKE ONE CAPSULE BY MOUTH EV JANKI MORNING cefdinir 300 mg capsule RxNorm: 500183 1 Capsule(s) PO BID 01/16/20 14 01/29/2014 Inactive Zithromax 500 mg tablet RxNorm: 120070 1 Tablet(s) PO QD 01/16/2014 0 01/22/2014 Inactive prednisone 20 mg tablet RxNorm: 450946 1 Tablet(s) PO BID 01/16/2014 01/22/2014 Inactive Spiriva with HandiHaler 18 mcg and inhalation capsules RxNor m: 064226 1 Capsule(s) INH QD 12/18/2013 07/17/2014 Inactive INHALE CONTENT S OF 1 CAPSULE(S) WITH HANDIHALER ONCE DAILY fluoxetine 20 mg capsule RxNorm: 959468 1 Capsule(s) PO QD 12/18/19 14 06/15/2014 Inactive Spiriva with HandiHaler 18 mcg & inhalation capsules RxNorm: 754772 1 Capsule(s) INH QD 12/18/2013 06/15/2014 Inactive INHALE CONTENTS OF 1 CAPSULE(S) WITH HANDIHALER ONCE DAILY fluoxetine 20 mg capsule RxNorm: 898463 1 Capsule(s) PO QD 12/18/19 14 07/17/2014 Inactive cefdinir 300 mg capsule RxNorm: 754506 2 Capsule(s) PO QD 12/12/2013 12/21/2013 Inactive Duragesic 100 mcg/hr transdermal patch RxNorm: 210683 2 Application TD Q48H for pain 12/08/2013 12/07/2013 Inactive Topamax 100 mg tablet RxNorm: 104208 1 Tablet(s) PO QHS 12/04/2013 Inactive Endocet 10 mg-325 mg tablet RxNorm: 1070624 1-2 Tablet(s) PO Q4H 12/26/2013 Inactive PRN PAIN Robaxin 750 mg tablet RxNorm: 027431 2 Tablet(s) PO TID as need ed for spasm 11/07/2013 01/05/2014 Inactive gabapentin 800 mg tablet RxNorm: 285898 1 Tablet(s) PO QD 10/16/2013 04/24/2014 Inactive TAKE ONE TABLET BY MOUTH EVERY DAY Symbicort 160 mcg-4.5 mcg/actuation HFA aerosol inhaler RxNo rm: 9221602 2 Puff(s) INH BID 10/16/2013 04/24/2014 Inactive INHALE 2 PUFFS O RALLY TWO TIMES A DAY Premarin 0.9 mg tablet RxNorm: 849608 1 Tablet(s) PO QD 10/16/2013 Inactive TAKE ONE TABLET BY MOUTH EVERY DAY metformin ER 500 mg tablet,extended release 24 hr RxNorm: 86 0975 1 Tablet(s) PO QD 10/16/2013 04/24/2014 Inactive TAKE ONE TABLET BY MOUTH EVERY DAY Daliresp 500 mcg tablet RxNorm: 2041896 1 Tablet(s) PO QD 10/16/2013 04/24/2014 Inactive Robaxin 750 mg tablet RxNorm: 504131 2 Tablet(s) PO TID as need ed for spasm 10/10/2013 11/06/2013 Inactive Duragesic 100 mcg/hr transdermal patch RxNorm: 845428 2 Application TD Q48H for pain 10/09/2013 No Stop Date Active Soma 350 mg tablet RxNorm: 805322 1 Tablet(s) PO TID 09/27/201310/09 Inactive TAKE ONE TABLET BY MOUTH THREE TIMES A D AY lactulose 10 gram/15 mL oral solution RxNorm: 989534 [address](s) PO QD 09/13/2013 03/07/2015 Inactive TAKE 1 TABLESPOON BY MOUTH ONCE DAILY Duragesic 100 mcg/hr transdermal patch RxNorm: 059030 2 Application TD Q48H for pain 09/06/2013 No Stop Date Active Endocet 10 mg-325 mg tablet RxNorm: 1173391 1-2 Tablet(s) PO Q4H 09/27/2013 Inactive PRN PAIN lancets 28 gauge RxNorm: Miscellaneous As needed for blo od glucose sticks 08/24/2013 No Stop Date Active 16.2 mg-0.1037 mg-0.0194 mg tablet RxNorm: 0991118 Tablet(s) PO PRN for gas and cramping 08/24/2013 01/19/2017 Inactive TAKE TWO TABLET S BY MOUTH THREE TIMES A DAY NEEDED FOR GAS AND CRAMPING Topamax 100 mg tablet RxNorm: 006984 1 Tablet(s) PO QHS 07/31/2013 Inactive Diflucan 100 mg tablet RxNorm: 927794 1 Tablet(s) PO QD 07/27/2013 Inactive cefdinir 300 mg capsule RxNorm: 945457 1 Capsule(s) PO BID 07/26/20 13 08/08/2013 Inactive Daliresp 500 mcg tablet RxNorm: 6281759 1 Tablet(s) PO QD 07/25/2013 10/15/2013 Inactive fluoxetine 40 mg capsule RxNorm: 557469 1 Capsule(s) PO QD 07/25/20 13 01/22/2014 Inactive TAKE ONE CAPSULE BY MOUTH EV JANKI MORNING Senokot-S 8.6 mg-50 mg tablet RxNorm: 7382471 1 Tablet(s) PO BID 10/25/2013 Inactive doxycycline hyclate 100 mg capsule RxNorm: 3190958 1 Capsule(s) PO BID 06/28/2013 07/07/2013 Inactive prednisone 20 mg tablet RxNorm: 962354 1 Tablet(s) PO BID 06/28/2013 07/04/2013 Inactive Zofran 4 mg tablet RxNorm: 101278 1 Tablet(s) PO Q4H prn nausea 03/201307/05/2013 Inactive Spiriva with HandiHaler 18 mcg & inhalation capsules RxNorm: 327210 1 Capsule(s) INH QD 06/26/2013 12/18/2013 Inactive INHALE CONTENTS OF 1 CAPSULE(S) WITH HANDIHALER ONCE DAILY Synthroid 112 mcg tablet RxNorm: 307910 1 Tablet(s) PO QD TAKE ONE TABLET BY MOUTH EVERY DAY 06/19/2013 02/15/2014 Inactive fluoxetine 20 mg capsule RxNorm: 249251 1 Capsule(s) PO QD 06/19/20 13 12/18/2013 Inactive Ventolin HFA 90 mcg/actuation Aerosol Inhaler RxNorm: 0940784 2 Puff(s) INH Q4H 06/05/2013 No Stop Date Active prn Soma 350 mg tablet RxNorm: 892452 1 Tablet(s) PO TID 06/05/201307/04 Inactive TAKE ONE TABLET BY MOUTH THREE TIMES A D AY prednisone 20 mg tablet RxNorm: 117718 1 Tablet(s) PO QD 05/31/2013 0 06/06/2013 Inactive Topamax 100 mg tablet RxNorm: 665830 1 Tablet(s) PO QHS 05/22/2013 Inactive Levaquin 500 mg tablet RxNorm: 238850 1 Tablet(s) PO QD 05/03/2013 Inactive Diflucan 100 mg tablet RxNorm: 624291 1 Tablet(s) PO QD 05/03/2013 Inactive Daliresp 500 mcg tablet RxNorm: 4011273 1 Tablet(s) PO QD 05/01/2013 07/24/2013 Inactive Daliresp 500 mcg tablet RxNorm: 0523008 1 Tablet(s) PO QD 05/01/2013 04/30/2013 Inactive gabapentin 800 mg tablet RxNorm: 169866 1 Tablet(s) PO QD 04/10/2013 10/06/2013 Inactive TAKE ONE TABLET BY MOUTH EVERY DAY metformin ER 500 mg tablet,extended release 24 hr RxNorm: 86 0977 1 Tablet(s) PO QD 04/10/2013 10/06/2013 Inactive TAKE ONE TABLET BY MOUTH EVERY DAY Premarin 0.9 mg tablet RxNorm: 822790 1 Tablet(s) PO QD 04/10/2013 Inactive TAKE ONE TABLET BY MOUTH EVERY DAY Symbicort 160 mcg-4.5 mcg/actuation HFA aerosol inhaler RxNo rm: 0459429 2 Puff(s) INH BID 04/10/2013 10/06/2013 Inactive INHALE 2 PUFFS O RALLY TWO TIMES A DAY Synthroid 112 mcg tablet RxNorm: 046635 1 Tablet(s) PO QD TAKE ONE TABLET BY MOUTH EVERY DAY 04/10/2013 06/18/2013 Inactive Ventolin HFA 90 mcg/actuation Aerosol Inhaler RxNorm: 234279 2 Puff(s) INH Q4H 04/10/2013 No Stop Date Active prn fentanyl 100 mcg/hr transdermal patch RxNorm: 776135 1 Unit Dos e TD QD 04/03/2013 05/02/2013 Inactive Endocet 10 mg-325 mg tablet RxNorm: 0443571 1-2 Tablet(s) PO Q4H 05/02/2013 Inactive PRN PAIN Topamax 100 mg tablet RxNorm: 874130 1 Tablet(s) PO QHS 03/13/2013 Inactive Reglan 10 mg tablet RxNorm: 284122 1 Tablet(s) PO QID b efore meals and at bedtime 03/13/2013 04/09/2015 Inactive fluoxetine 20 mg capsule RxNorm: 085630 1 Capsule(s) PO QD 02/28/20 13 05/27/2013 Inactive Ventolin HFA 90 mcg/actuation Aerosol Inhaler RxNorm: 494343 2 Puff(s) INH Q4H 02/13/2013 No Stop Date Active prn fluoxetine 40 mg capsule RxNorm: 125104 1 Capsule(s) PO QD 01/31/20 13 07/24/2013 Inactive TAKE ONE CAPSULE BY MOUTH EV JANKI MORNING Soma 350 mg tablet RxNorm: 124239 1 Tablet(s) PO TID 01/20/201302/18 Inactive TAKE ONE TABLET BY MOUTH THREE TIMES A D AY Endocet 10 mg-325 mg tablet RxNorm: 9192869 1-2 Tablet(s) PO Q4H 02/06/2013 Inactive PRN PAIN MS Contin 200 mg tablet,extended release RxNorm: 368295 1 Table t(s) PO BID 01/18/2013 02/06/2013 Inactive Ventolin HFA 90 mcg/actuation Aerosol Inhaler RxNorm: 335615 2 Puff(s) INH Q4H 01/04/2013 No Stop Date Active prn Spiriva with HandiHaler 18 mcg & inhalation capsules RxNorm: 110681 1 Capsule(s) INH QD 12/29/2012 06/25/2013 Inactive INHALE CONTENTS OF 1 CAPSULE(S) WITH HANDIHALER ONCE DAILY Spiriva with HandiHaler 18 mcg & inhalation capsules RxNorm: 903758 1 Capsule(s) INH QD 12/26/2012 12/28/2012 Inactive INHALE CONTENTS OF 1 CAPSULE(S) WITH HANDIHALER ONCE DAILY Synthroid 112 mcg tablet RxNorm: 300230 Tablet(s) PO TA KE ONE TABLET BY MOUTH EVERY DAY 12/26/2012 04/09/2013 Inactive Endocet 10 mg-325 mg tablet RxNorm: 6415506 1-2 Tablet(s) PO Q4H 01/17/2013 Inactive PRN PAIN MS Contin 200 mg tablet,extended release RxNorm: 771714 1 Table t(s) PO BID 12/21/2012 01/17/2013 Inactive fluoxetine 20 mg capsule RxNorm: 943005 1 Capsule(s) PO QD 12/06/19 13 02/26/2013 Inactive Synthroid 112 mcg tablet RxNorm: 635531 1 Tablet(s) PO QD 12/06/2012 02/12/2019 Inactive TAKE ONE TABLET BY MOUTH EVERY DAY Ventolin HFA 90 mcg/actuation Aerosol Inhaler RxNorm: 354931 2 Puff(s) INH Q4H 12/06/2012 No Stop Date Active prn Reglan 10 mg tablet RxNorm: 775038 1 Tablet(s) PO QID b efore meals and at bedtime 11/24/2012 03/12/2013 Inactive Topamax 100 mg tablet RxNorm: 968207 1 Tablet(s) PO QHS 11/16/2012 Inactive Ventolin HFA 90 mcg/actuation Aerosol Inhaler RxNorm: 611190 2 Puff(s) INH Q4H 11/09/2012 No Stop Date Active prn gabapentin 800 mg tablet RxNorm: 913019 1 Tablet(s) PO QD 10/27/2012 04/09/2013 Inactive TAKE ONE TABLET BY MOUTH EVERY DAY metformin ER 500 mg tablet,extended release 24 hr RxNorm: 86 0977 1 Tablet(s) PO QD 10/27/2012 04/09/2013 Inactive TAKE ONE TABLET BY MOUTH EVERY DAY Symbicort 160 mcg-4.5 mcg/actuation HFA Aerosol Inhaler RxNo rm: 2005287 2 Puff(s) INH BID 10/27/2012 04/09/2013 Inactive INHALE 2 PUFFS O RALLY TWO TIMES A DAY Premarin 0.9 mg tablet RxNorm: 818844 1 Tablet(s) PO QD 10/27/2012 Inactive TAKE ONE TABLET BY MOUTH EVERY DAY Endocet 10 mg-325 mg tablet RxNorm: 2602581 1-2 Tablet(s) PO Q4H 11/24/2012 Inactive PRN PAIN MS Contin 200 mg tablet,extended release RxNorm: 700891 1 Table t(s) PO BID 10/26/2012 11/24/2012 Inactive Soma 350 mg tablet RxNorm: 569606 1 Tablet(s) PO TID 10/04/201211/02 Inactive TAKE ONE TABLET BY MOUTH THREE TIMES A D AY Ventolin HFA 90 mcg/actuation Aerosol Inhaler RxNorm: 196806 2 Puff(s) INH Q4H 10/03/2012 No Stop Date Active prn Daliresp 500 mcg tablet RxNorm: 1365074 1 Tablet(s) PO QD 09/28/2012 09/27/2012 Inactive Daliresp 500 mcg tablet RxNorm: 7917456 1 Tablet(s) PO QD 09/28/2012 04/25/2013 Inactive fluoxetine 20 mg capsule RxNorm: 781674 1 Capsule(s) PO QD 09/05/20 12 12/06/2012 Inactive Topamax 50 mg tablet RxNorm: 247818 Tablet(s) PO for 1w k then 1 po q HS for 1wk then 2 po q HS 08/29/2012 09/27/2012 Inactive TAKE 1/2 TABLET BY MOUTH AT BEDTIME FOR 1 WEEK, THEN 1 TABLET AT BEDTIME FOR 1 WEEK, THEN 2 TABLETS AT BEDTIME Topamax 100 mg tablet RxNorm: 375703 1 Tablet(s) PO QHS 08/29/2012 Inactive Ventolin HFA 90 mcg/actuation Aerosol Inhaler RxNorm: 341470 2 Puff(s) INH Q4H 08/19/2012 No Stop Date Active prn Ventolin HFA 90 mcg/actuation Aerosol Inhaler RxNorm: 755690 2 Puff(s) INH Q4H 08/15/2012 No Stop Date Active prn Synthroid 112 mcg tablet RxNorm: 529988 1 Tablet(s) PO QD 08/10/2012 11/07/2012 Inactive TAKE ONE TABLET BY MOUTH EVERY DAY Synthroid 112 mcg tablet RxNorm: 984182 1 Tablet(s) PO QD 08/01/2012 08/09/2012 Inactive TAKE ONE TABLET BY MOUTH EVERY DAY Reglan 10 mg tablet RxNorm: 730118 1 Tablet(s) PO QID b efore meals and at bedtime 08/01/2012 11/23/2012 Inactive fluoxetine 40 mg capsule RxNorm: 815748 1 Capsule(s) PO QD 08/01/20 12 01/27/2013 Inactive TAKE ONE CAPSULE BY MOUTH EV JANKI MORNING Ventolin HFA 90 mcg/actuation Aerosol Inhaler RxNorm: 427140 2 Puff(s) INH Q4H 08/01/2012 No Stop Date Active prn Soma 350 mg tablet RxNorm: 166527 1 Tablet(s) PO TID 07/20/201208/18 Inactive TAKE ONE TABLET BY MOUTH THREE TIMES A D AY Spiriva with HandiHaler 18 mcg & inhalation capsules RxNorm: 287967 1 Capsule(s) INH 07/01/2012 12/25/2012 Inactive INHALE CONTENTS OF 1 CAPSULE(S) WITH HANDIHALER ONCE DAILY Zithromax 250 mg Tab RxNorm: 468226 2 Tablet(s) PO QD 06/28/201206/22 Inactive MS Contin 200 mg tablet,extended release RxNorm: 861756 1 Table t(s) PO BID 06/28/2012 07/27/2012 Inactive Endocet 10 mg-325 mg tablet RxNorm: 9286378 1-2 Tablet(s) PO Q4H 07/27/2012 Inactive PRN PAIN Topamax 100 mg tablet RxNorm: 770371 1 Tablet(s) PO QHS 06/28/2012 Inactive 16.2 mg-0.1037 mg-0.0194 mg tablet RxNorm: 1977972 Tablet(s) PO PRN for gas and cramping 06/08/2012 08/23/2013 Inactive TAKE TWO TABLET S BY MOUTH THREE TIMES A DAY NEEDED FOR GAS AND CRAMPING Ventolin HFA 90 mcg/actuation Aerosol Inhaler RxNorm: 075403 2 Puff(s) INH Q4H 05/23/2012 No Stop Date Active prn Ventolin HFA 90 mcg/actuation Aerosol Inhaler RxNorm: 572792 2 Puff(s) INH Q4H 05/11/2012 No Stop Date Active prn Synthroid 112 mcg tablet RxNorm: 498114 1 Tablet(s) PO QD 05/09/2012 07/31/2012 Inactive TAKE ONE TABLET BY MOUTH EVERY DAY gabapentin 800 mg tablet RxNorm: 098116 1 Tablet(s) PO QD 05/09/2012 10/26/2012 Inactive TAKE ONE TABLET BY MOUTH EVERY DAY fluoxetine 40 mg capsule RxNorm: 022930 1 Capsule(s) PO QD 05/09/2007/31/2012 Inactive TAKE ONE CAPSULE BY MOUTH EV JANKI MORNING metformin ER 500 mg tablet,extended release 24 hr RxNorm: 86 0977 1 Tablet(s) PO QD 05/09/2012 10/26/2012 Inactive TAKE ONE TABLET BY MOUTH EVERY DAY Premarin 0.9 mg tablet RxNorm: 039578 1 Tablet(s) PO QD 05/09/2012 Inactive TAKE ONE TABLET BY MOUTH EVERY DAY Symbicort 160 mcg-4.5 mcg/actuation HFA Aerosol Inhaler RxNo rm: 5834120 2 Puff(s) INH BID 05/09/2012 10/26/2012 Inactive INHALE 2 PUFFS O RALLY TWO TIMES A DAY Endocet 10 mg-325 mg Tab RxNorm: 3612712 1-2 Tablet(s) PO Q4H 04/2705/26/2012 Inactive PRN PAIN MS Contin 200 mg Tab RxNorm: 057426 1 Tablet(s) PO BID 04/26/201202/2012 Inactive Ventolin HFA 90 mcg/actuation Aerosol Inhaler RxNorm: 784034 2 Puff(s) INH Q4H 04/25/2012 05/10/2012 Inactive prn Soma 350 mg tablet RxNorm: 225447 2 Tablet(s) PO TID 04/19/201207/19 Inactive TAKE ONE TABLET BY MOUTH THREE TIMES A D AY Ventolin HFA 90 mcg/actuation Aerosol Inhaler RxNorm: 816123 2 Puff(s) INH Q4H 04/12/2012 04/24/2012 Inactive prn Reglan 10 mg tablet RxNorm: 775772 1 Tablet(s) PO QID b efore meals and at bedtime 04/11/2012 07/31/2012 Inactive MS Contin 200 mg Tab RxNorm: 509217 1 Tablet(s) PO BID 03/30/201202/2012 Inactive Endocet 10 mg-325 mg Tab RxNorm: 1211402 1-2 Tablet(s) PO Q4H 03/3004/26/2012 Inactive PRN PAIN MS Contin 200 mg Tab RxNorm: 416779 1 Tablet(s) PO BID 03/02/201206/2012 Inactive Endocet 10 mg-325 mg Tab RxNorm: 0114755 1-2 Tablet(s) PO Q4H 03/0203/29/2012 Inactive PRN PAIN Daliresp 500 mcg tablet RxNorm: 0061861 1 Tablet(s) PO QD 03/01/2012 09/28/2012 Inactive MS Contin 200 mg Tab RxNorm: 128757 1 Tablet(s) PO BID 02/02/201208/2012 Inactive Endocet 10 mg-325 mg Tab RxNorm: 0674419 1-2 Tablet(s) PO Q4H 02/0103/01/2012 Inactive PRN PAIN fluoxetine 40 mg capsule RxNorm: 057728 1 Capsule(s) PO QD 02/02/2008/01/2012 Inactive TAKE ONE CAPSULE BY MOUTH EV JANKI MORNING Synthroid 112 mcg Tab RxNorm: 840134 1 Tablet(s) PO QD 01/18/2012 Inactive TAKE ONE TABLET BY MOUTH EVERY DAY lactulose 10 gram/15 mL oral solution RxNorm: 986322 [address]s) PO QD 01/18/2012 No Stop Date Active TAKE 1 TABLESPOON BY MOUTH ONCE DAILY Ventolin HFA 90 mcg/actuation Aerosol Inhaler RxNorm: 182576 2 Puff(s) INH Q4H 01/18/2012 04/11/2012 Inactive prn MS Contin 200 mg Tab RxNorm: 066441 1 Tablet(s) PO BID 01/05/201210/2012 Inactive Endocet 10 mg-325 mg Tab RxNorm: 9024120 1-2 Tablet(s) PO Q4H 01/0502/01/2012 Inactive PRN PAIN ProAir HFA 90 mcg/Actuation Aerosol Inhaler RxNorm: 639407 2 Pu ff(s) INH Q4H 12/21/2011 No Stop Date Active prn for wheezing or shortness of breath Spiriva with HandiHaler 18 mcg & inhalation Caps RxNorm: 580 261 1 Capsule(s) INH 12/21/2011 06/30/2012 Inactive INHALE CONTENTS OF 1 CAPSULE(S) WITH HANDIHALER ONCE DAILY Reglan 10 mg Tab RxNorm: 076074 1 Tablet(s) PO QID before meals and at bedtime 12/21/2011 04/10/2012 Inactive Synthroid 112 mcg Tab RxNorm: 306834 1 Tablet(s) PO QD 12/21/2011 Inactive TAKE ONE TABLET BY MOUTH EVERY DAY Endocet 10 mg-325 mg Tab RxNorm: 9547786 1-2 Tablet(s) PO Q4H 11/2512/24/2011 Inactive PRN PAIN MS Contin 200 mg Tab RxNorm: 536679 1 Tablet(s) PO BID 11/25/201112/2011 Inactive lactulose 10 gram/15 mL Oral Soln RxNorm: 446202 Milliliter(s) PO 1 No Stop Date Active TAKE 1 TABLESPOON BY MOUTH O NCE DAILY lactulose 10 gram/15 mL Oral Soln RxNorm: 231814 Milliliter(s) PO 1 12/12/2010 11/20/2011 Inactive TAKE 1 TABLESPOON BY MOUTH O NCE DAILY Premarin 0.9 mg Tab RxNorm: 465564 1 Tablet(s) PO QD 10/12/201105/08 Inactive TAKE ONE TABLET BY MOUTH EVERY DAY fluoxetine 20 mg capsule RxNorm: 247067 1 Capsule(s) PO QD 10/12/2009/05/2012 Inactive TAKE ONE CAPSULE BY MOUTH EV JANKI DAY Synthroid 112 mcg Tab RxNorm: 727724 1 Tablet(s) PO QD 10/12/2011 Inactive TAKE ONE TABLET BY MOUTH EVERY DAY metformin ER 500 mg 24 hr Tab RxNorm: 592852 1 Tablet(s) PO QD 09/2311/10/2011 Inactive TAKE ONE TABLET BY MOUTH GLYNN RY DAY Synthroid 112 mcg Tab RxNorm: 024183 1 Tablet(s) PO QD 10/12/2011 Inactive TAKE ONE TABLET BY MOUTH EVERY DAY metformin ER 500 mg 24 hr Tab RxNorm: 635515 1 Tablet(s) PO QD 09/2310/11/2011 Inactive TAKE ONE TABLET BY MOUTH GLYNN RY DAY Prevacid 30 mg Cap RxNorm: 148375 Capsule(s) PO 10/12/2011 01/25/2012 Inactive TAKE ONE CAPSULE BY MOUTH EVERY DAY Symbicort 160 mcg-4.5 mcg/actuation HFA Aerosol Inhaler RxNo rm: 5705070 2 Puff(s) INH BID 10/12/2011 05/08/2012 Inactive INHALE 2 PUFFS O RALLY TWO TIMES A DAY gabapentin 800 mg Tab RxNorm: 591887 1 Tablet(s) PO QD 10/12/2011 Inactive TAKE ONE TABLET BY MOUTH EVERY DAY MS Contin 200 mg Tab RxNorm: 648305 1 Tablet(s) PO BID 09/23/201111/2010 Inactive Endocet 10 mg-325 mg Tab RxNorm: 3212259 1-2 Tablet(s) PO Q4H 09/2310/22/2011 Inactive PRN PAIN Endocet 10 mg-325 mg Tab RxNorm: 3764741 1-2 Tablet(s) PO Q4H 08/2109/19/2011 Inactive PRN PAIN MS Contin 200 mg Tab RxNorm: 599717 1 Tablet(s) PO BID 08/21/2011 Inactive Diflucan 100 mg Tab RxNorm: 405821 1 Tablet(s) PO QD 08/10/201108/16 Inactive cefdinir 300 mg Cap RxNorm: 800627 2 Capsule(s) PO QD 08/10/201107/24 Inactive Reglan 10 mg Tab RxNorm: 814499 1 Tablet(s) PO AC & HS 07/15/2011 Inactive Endocet 10 mg-325 mg Tab RxNorm: 0388879 1-2 Tablet(s) PO Q4H 07/1508/13/2011 Inactive PRN PAIN One Touch Ultra Test strips RxNorm: Miscellaneous BID 06/11/2011 1 01/16/2014 Inactive TEST TWO TIMES A DAY lactulose 10 gram/15 mL Oral Soln RxNorm: 259792 Milliliter(s) PO 0 06/10/2011 10/11/2011 Inactive TAKE 1 TABLESPOON BY MOUTH O NCE DAILY Chantix Continuing Month Aníbal 1 mg Tab RxNorm: 350150 Tablet(s) PO 0 06/10/2011 11/02/2011 Inactive TAKE DIRECTED - PER [employer] GE INSTRUCTIONS fluoxetine 40 mg Cap RxNorm: 979710 Capsule(s) PO 06/10/2011 02/02/20 12 Inactive TAKE ONE CAPSULE BY MOUTH EVERY MORNING Chantix Continuing Month Aníbal 1 mg Tab RxNorm: 958952 Ta blet(s) PO TAKE DIRECTED - PER PACKAGE INSTRUCTIONS 05/13/2011 06/09/2011 Inactive Soma 350 mg Tab RxNorm: 532300 Tablet(s) PO TAKE ON E TABLET BY MOUTH THREE TIMES A DAY 05/13/2011 04/18/2012 Inactive Chantix Continuing Month Aníbal 1 mg Tab RxNorm: 826973 Ta blet(s) PO as directed per package instructions. 04/22/2011 05/12/2011 Inactive Symbicort 160 mcg-4.5 mcg/Actuation HFA Aerosol Inhaler RxNo rm: [id number] HFA Aerosol Inhaler INH INHALE 2 PUFFS ORALLY TWO TIMES A DAY 04/13/2011 Inactive Synthroid 112 mcg Tab RxNorm: 837427 Tablet(s) PO TAKE ONE TABLET BY MOUTH EVERY DAY 04/13/2011 10/12/2011 Inactive Premarin 0.9 mg Tab RxNorm: 914755 Tablet(s) PO TAKE ON E TABLET BY MOUTH EVERY DAY 04/13/2011 10/12/2011 Inactive gabapentin 800 mg Tab RxNorm: 128085 Tablet(s) PO TAKE ONE TABLET BY MOUTH EVERY DAY 04/13/2011 10/12/2011 Inactive Prevacid 30 mg Cap RxNorm: 043747 1 Capsule(s) PO QD 04/13/201110/11 Inactive Spiriva with HandiHaler 18 mcg & inhalation Caps RxNorm: 580 261 Capsule(s) INH INHALE CONTENTS OF 1 CAPSULE(S) WITH HANDIHALER ONCE DAILY 04/13/2011 12/21/2011 Inactive metformin ER 500 mg 24 hr Tab RxNorm: 913049 Tablet(s) PO TAKE ONE TABLET BY MOUTH EVERY DAY 04/13/2011 10/12/2011 Inactive Soma 350 mg Tab RxNorm: 551471 1 Tablet(s) PO QID 03/30/2011 02/13/20 19 Inactive fluoxetine 20 mg Cap RxNorm: 820379 Capsule(s) PO TAKE ONE CAPSULE BY MOUTH EVERY DAY 03/25/2011 10/12/2011 Inactive cefdinir 300 mg Cap RxNorm: 682229 2 Capsule(s) PO QD 03/19/201105/2011 Inactive 16.2 mg-0.1037 mg-0.0194 mg Tab RxNorm: 1751860 2 Tablet(s) PO TID PRN for gas and cramping 03/16/2011 07/13/2011 Inactive Soma 350 mg Tab RxNorm: 233198 2 Tablet(s) PO TID 03/16/2011 03/29/20 11 Inactive Chantix Starting Month Aníbal 0.5 mg (11)-1 mg (3x14) Tab s in a Dose Pack RxNorm: 855718 Tablet(s) PO as directed 03/02/2011 No Stop Date Active diazepam 10 mg Tab RxNorm: 703691 1 Tablet(s) PO BID 02/10/201101/19 Inactive Zofran 4 mg tablet RxNorm: 810650 1 Tablet(s) PO Q4H prn nausea 02/16/2011 Inactive Diflucan 100 mg Tab RxNorm: 456698 1 Tablet(s) PO QD 01/18/201101/24 Inactive Premarin 0.625 mg/g Vaginal Cream RxNorm: 343689 VAG In sert 1gm vaginally at bedtime 3 times weekly 01/18/2011 02/12/2019 Inactive loratadine 10 mg Tab RxNorm: 6012964 1 Tablet(s) PO QD 12/17/201003/2012 Inactive Spiriva with HandiHaler 18 mcg & inhalation Caps RxNorm: 580 261 1 Capsule(s) INH QD 12/17/2010 04/12/2011 Inactive Diflucan 100 mg Tab RxNorm: 866098 1 Tablet(s) PO QD 12/17/201012/23 Inactive diazepam 10 mg Tab RxNorm: 986141 1 Tablet(s) PO BID and PRN 201002/12/2019 Inactive One Touch Ultra Test Strips RxNorm: InVt BID Zainab t blood sugar at least twice daily. 11/11/2010 06/11/2011 Inactive fluoxetine 40 mg Cap RxNorm: 673242 1 Capsule(s) PO QAM 11/11/2010 Inactive diazepam 10 mg Tab RxNorm: 394247 1 Tablet(s) PO BID and PRN 200911/12/2010 Inactive Bactrim DS 800 mg-160 mg Tab RxNorm: 353435 1 Tablet(s) PO BID 09/2210/15/2010 Inactive fluoxetine 20 mg Cap RxNorm: 332970 1 Capsule(s) PO QD 10/02/201008/2011 Inactive Bactrim DS 800 mg-160 mg Tab RxNorm: 601346 1 Tablet(s) PO BID 01/201010/03/2010 Inactive Zofran 4 mg Tab RxNorm: 697164 1 Tablet(s) PO Q4H prn nausea 200910/16/2010 Inactive 16.2 mg-0.1037 mg-0.0194 mg Tab RxNorm: 0012859 2 Tablet(s) PO TID PRN for gas and cramping 09/17/2010 10/21/2010 Inactive Gabapentin 800 mg Tab RxNorm: 446126 1 Tablet(s) PO QD 09/16/2010 Inactive ProAir HFA 90 mcg/Actuation Aerosol Inhaler RxNorm: 825564 2 Puff(s) INH Q4H prn shortness of breath 09/15/2010 12/13/2010 Inactive gabapentin 800 mg Tab RxNorm: 528877 1 Tablet(s) PO QD 09/15/2010 Inactive Prevacid 30 mg Cap RxNorm: 990179 1 Capsule(s) PO QD 09/15/201004/12 Inactive loratadine 10 mg Tab RxNorm: 7491541 1 Tablet(s) PO QD 09/15/2010 Inactive Premarin 0.9 mg Tab RxNorm: 341565 1 Tablet(s) PO QD 09/15/201004/12 Inactive Synthroid 112 mcg Tab RxNorm: 999005 1 Tablet(s) PO QD 09/15/2010 Inactive metformin ER 500 mg 24 hr Tab RxNorm: 625762 1 Tablet(s) PO QD 08/2304/12/2011 Inactive Symbicort 160 mcg-4.5 mcg/Actuation Inhalation HFA Aer osol Inhaler RxNorm: 0004715 2 Puff(s) INH BID 09/15/2010 04/12/2011 Inactive diazepam 10 mg Tab RxNorm: 393938 1 Tablet(s) PO BID and PRN 200910/13/2010 Inactive Phentermine 37.5 mg Cap RxNorm: 404447 1 Capsule(s) PO QD 09/02/2010 11/02/2011 Inactive ProAir HFA 90 mcg/Actuation Aerosol Inhaler RxNorm: 838842 2 Puff(s) INH Q4H prn shortness of breath 08/07/2010 No Stop Date Active Premarin 0.9 mg Tab RxNorm: 104354 1 Tablet(s) PO QD 08/07/201009/14 Inactive Loratadine 10 mg Tab RxNorm: 7906624 1 Tablet(s) PO QD 08/07/2010 Inactive Lactulose 10 gram/15 mL Oral Soln RxNorm: 328696 1 Unit Dose PO QD 08/07/2010 02/12/2019 Inactive Zofran 4 mg Tab RxNorm: 623465 1 Tablet(s) PO Q4H prn nausea 2009 No Stop Date Active Gabapentin 800 mg Tab RxNorm: 557495 1 Tablet(s) PO QD 08/07/2010 Inactive Synthroid 112 mcg Tab RxNorm: 924834 1 Tablet(s) PO QD 08/07/2010 Inactive Metformin ER 500 mg 24 hr Tab RxNorm: 897005 1 Tablet(s) PO QD 07/2309/14/2010 Inactive Vitamin D 1,000 unit Tab RxNorm: 249310 1 Tablet(s) PO TID 08/07/20 10 02/12/2019 Inactive Symbicort 160 mcg-4.5 mcg/Actuation Inhalation HFA Aer osol Inhaler RxNorm: 7722178 2 Puff(s) INH BID 08/07/2010 09/14/2010 Inactive Prevacid 30 mg Cap RxNorm: 478953 1 Capsule(s) PO QD 08/07/201009/14 Inactive Metformin ER 500 mg 24 hr Tab RxNorm: 376991 1 Tablet(s) PO QD 06/2308/06/2010 Inactive Vitamin D 1,000 unit Tab RxNorm: 906027 1 Tablet(s) PO TID 07/14/2008/06/2010 Inactive Synthroid 112 mcg Tab RxNorm: 417149 1 Tablet(s) PO QD 07/14/2010 Inactive Lactulose 10 gram/15 mL Oral Soln RxNorm: 750114 1 Unit Dose PO QD 07/14/2010 08/06/2010 Inactive Levaquin 500 mg Tab RxNorm: 722341 1 Tablet(s) PO QD 07/14/201007/27 Inactive Premarin 0.9 mg Tab RxNorm: 133937 1 Tablet(s) PO QD 07/14/201008/06 Inactive ProAir HFA 90 mcg/Actuation Aerosol Inhaler RxNorm: 584315 2 Puff(s) INH Q4H prn shortness of breath 07/14/2010 No Stop Date Active Prevacid 30 mg Cap RxNorm: 586651 1 Capsule(s) PO QD 07/14/201008/06 Inactive Zofran 4 mg Tab RxNorm: 604476 1 Tablet(s) PO Q4H prn nausea 2009 No Stop Date Active Symbicort 160 mcg-4.5 mcg/Actuation Inhalation HFA Aer osol Inhaler RxNorm: 9296468 2 Puff(s) INH BID 07/14/2010 08/06/2010 Inactive Loratadine 10 mg Tab RxNorm: 6599297 1 Tablet(s) PO QD 07/14/2010 Inactive Gabapentin 800 mg Tab RxNorm: 649425 1 Tablet(s) PO QD 07/14/2010 Inactive Metformin ER 500 mg 24 hr Tab RxNorm: 590126 1 Tablet(s) PO 010 07/13/2010 Inactive Diazepam 10 mg Tab RxNorm: 788458 1 Tablet(s) PO BID and PRN 200909/06/2010 Inactive Premarin 0.9 mg Tab RxNorm: 122570 1 Tablet(s) PO QD 06/09/201007/13 Inactive Zofran 4 mg Tab RxNorm: 679248 1 Tablet(s) PO Q4H prn nausea 2009 No Stop Date Active ProAir HFA 90 mcg/Actuation Aerosol Inhaler RxNorm: 687492 2 Puff(s) INH Q4H prn shortness of breath 06/09/2010 No Stop Date Active Gabapentin 800 mg Tab RxNorm: 735595 1 Tablet(s) PO QD 06/09/2010 Inactive Loratadine 10 mg Tab RxNorm: 9471796 1 Tablet(s) PO QD 06/09/2010 Inactive Lactulose 10 gram/15 mL Oral Soln RxNorm: 804657 1 Unit Dose PO QD 06/09/2010 07/13/2010 Inactive Prevacid 30 mg Cap RxNorm: 569625 1 Capsule(s) PO QD 06/09/201007/13 Inactive Synthroid 112 mcg Tab RxNorm: 764830 1 Tablet(s) PO QD 06/09/2010 Inactive Symbicort 160 mcg-4.5 mcg/Actuation Inhalation HFA Aer osol Inhaler RxNorm: 0011786 2 Puff(s) INH BID 06/09/2010 07/13/2010 Inactive Omnicef 300 mg Cap RxNorm: 284305 2 Capsule(s) PO QD 05/07/201005/20 Inactive Metformin 500 mg Tab RxNorm: 059410 1 Tablet(s) PO QD 05/06/201005/22 Inactive ProAir HFA 90 mcg/Actuation Aerosol Inhaler RxNorm: 420270 2 Puff(s) INH Q4H prn shortness of breath 05/06/2010 No Stop Date Active lactulose 10 gram/15 mL Oral Soln RxNorm: 571052 1 Unit Dose PO QD 05/06/2010 06/10/2011 Inactive Loratadine 10 mg Tab RxNorm: 1398656 1 Tablet(s) PO QD 05/06/2010 Inactive Synthroid 112 mcg Tab RxNorm: 781913 1 Tablet(s) PO QD 05/06/2010 Inactive Symbicort 160 mcg-4.5 mcg/Actuation Inhalation HFA Aer osol Inhaler RxNorm: 5002131 2 Puff(s) INH BID 05/06/2010 06/08/2010 Inactive Gabapentin 800 mg Tab RxNorm: 582366 1 Tablet(s) PO QD 05/06/2010 Inactive 16.2 mg-0.1037 mg-0.0194 mg Tab RxNorm: 0405861 2 Tablet(s) PO TID PRN for gas and cramping 05/06/2010 05/12/2010 Inactive Zofran 4 mg Tab RxNorm: 820084 1 Tablet(s) PO Q4H prn nausea 200904/13/2010 Inactive MS Contin 60 mg Tab RxNorm: 861530 3 Tablet(s) PO BID 04/09/201004/22 Inactive Soma 350 mg Tab RxNorm: 164615 2 Tablet(s) PO TID 04/09/2010 05/08/20 10 Inactive Symbicort 160 mcg-4.5 mcg/Actuation Inhalation HFA Aer osol Inhaler RxNorm: 0220068 2 Puff(s) INH BID 04/08/2010 05/05/2010 Inactive Doxycycline 100 mg Cap RxNorm: 8045067 1 Capsule(s) PO BID 04/08/20 10 04/17/2010 Inactive Triamterene-Hydrochlorothiazide 37.5 mg-25 mg Cap RxNorm: 19 8316 1 Capsule(s) PO QAM 04/08/2010 09/04/2010 Inactive fluoxetine 40 mg Cap RxNorm: 446699 1 Capsule(s) PO QAM 04/08/2010 Inactive Morphine SR 120 mg multiphase 24 hr Cap RxNorm: 788257 1 Capsul e(s) PO 03/11/2010 04/07/2010 Inactive Endocet 10 mg-325 mg Tab RxNorm: 0939863 1-2 Tablet(s) PO Q4H GA N PAIN 03/11/2010 04/09/2010 Inactive Savella 100 mg Tab RxNorm: 229855 1 Tablet(s) PO BID 03/10/201004/09 Inactive Soma 350 mg Tab RxNorm: 080150 1 Tablet(s) PO TID prn spasm 010 04/09/2010 Inactive Savella 100 mg Tab RxNorm: 494489 1 Tablet(s) PO BID 02/03/201004/09 Inactive Aspirin 81 mg Tab RxNorm: 078625 1 Tablet(s) PO QD No Start Date Active Zyrtec 10 mg Tab RxNorm: 6561159 1 Tablet(s) PO QD No Start Date Active One Touch Ultra Test Strips RxNorm: Misc test at least t wice daily. No Start Date Active coenzyme Q10 200 mg capsule RxNorm: 690803 1 Capsule(s) PO QD No Star t Date Active One Touch Ultra Test Strips RxNorm: InVt BID Zainab t blood sugar at least twice daily. No Start Date 11/10/2010 Inactive Gabapentin 800 mg Tab RxNorm: 513012 1 Tablet(s) PO QD No Start Date 05/05/2010 Inactive Abilify 5 mg tablet RxNorm: 340952 1 Tablet(s) PO QD No Start Date Inactive Chantix 1 mg Tab RxNorm: 309787 1 Tablet(s) PO BID No Start Date 10/22 Inactive Ozempic 0.25 mg or 0.5 mg (2 mg/1.5 mL) subcutaneous p en injector RxNorm: 6922021 .25 Milligram(s) SQ QW No Start Date 07/04/2019 Inactive lancets 28 gauge RxNorm: Miscellaneous As needed for blo od glucose sticks No Start Date 08/23/2013 Inactive potassium chloride ER 20 mEq tablet,extended release RxNorm: 840713 2 Tablet(s) PO QD No Start Date 09/26/2018 Inactive Ventolin HFA 90 mcg/actuation Aerosol Inhaler RxNorm: 197565 2 Puff(s) INH Q4H prn No Start Date 01/17/2012 Inactive potassium chloride ER 20 mEq tablet,extended release RxNorm: 388075 2 Tablet(s) PO QD No Start Date 10/19/2018 Inactive Januvia 100 mg tablet RxNorm: 603781 1 Tablet(s) PO QD No Start Date 09/10/2015 Inactive Medrol (Aníbal) 4 mg Tabs in a Dose Pack RxNorm: 963598 Tablet(s) PO N o Start Date 08/09/2011 Inactive as directed Zithromax Z-Aníbal 250 mg Tab RxNorm: 623879 Tablet(s) PO No Start Date 01/25/2012 Inactive as directed vitamin B6-vitamin E-magnesium tablet RxNorm: 1 Tablet(s ) PO QHS with INH No Start Date 03/30/2018 Inactive prednisone 20 mg Tab RxNorm: 415851 1 Tablet(s) PO TID for 1wk then 1 po BID for 1wk No Start Date 01/25/2012 Inactive furosemide 40 mg tablet RxNorm: 832810 1 Tablet(s) PO QAM No Start Date 10/09/2018 Inactive Vitamin D3 1000 units Capsule RxNorm: 1 Capsule(s) PO TID No S tart Date 03/19/2015 Inactive Zofran 4 mg Tab RxNorm: 195370 1 Tablet(s) PO Q4H prn nausea No Sta rt Date 04/13/2010 Inactive Premarin 0.625 mg/g Vaginal Cream RxNorm: 672387 1 Gram (s) VAG QHS 3 times a week No Start Date 09/22/2017 Inactive oxycodone 10 mg tablet RxNorm: 9409054 1-2 Tablet(s) PO QID as n eeded for pain No Start Date 11/04/2015 Inactive Nicoderm CQ 21 mg/24 hr daily Patch RxNorm: 590264 1 Applicatio n TD QD No Start Date 08/05/2015 Inactive Topamax 50 mg tablet RxNorm: 680594 1/2 Tablet(s) PO QH S for 1wk then 1 po q HS for 1wk then 2 po q HS No Start Date 06/27/2012 Inactive Chantix Starting Month Aníbal 0.5 mg (11)-1 mg (3x14) Tab s in a Dose Pack RxNorm: 553582 Tablet(s) PO as directed No Start Date 03/01/2011 Inactive Trulicity 0.75 mg/0.5 mL subcutaneous pen injector RxNorm: 1 117255 Milliliter(s) SQ No Start Date 07/04/2019 Inactive Medrol (Aníbal) 4 mg Tabs in a Dose Pack RxNorm: 732036 Tablet(s) PO N o Start Date 01/25/2012 Inactive as directed Duragesic 100 mcg/hr Transderm Patch RxNorm: 934233 2 A pplication TD Q48H for pain No Start Date 09/05/2013 Inactive Premarin 0.9 mg Tab RxNorm: 194019 1 Tablet(s) PO QD No Start Date Inactive Zithromax Z-Aníbal 250 mg Tab RxNorm: 891704 Tablet(s) PO as direc chinmay No Start Date 01/25/2012 Inactive ondansetron 8 mg disintegrating tablet RxNorm: 847612 1 Tablet(s) PO Q6H as needed No Start Date 10/10/2018 Inactive oxycodone 15 mg tablet RxNorm: 8734530 1 Tablet(s) PO QID as nee ded for pain No Start Date 03/05/2019 Inactive ProAir HFA 90 mcg/Actuation Aerosol Inhaler RxNorm: 323566 2 Puff(s) INH Q4H prn for wheezing or shortness of breath No Start Date 12/21/2011 Inactive pravastatin 40 mg tablet RxNorm: 467302 1/2 Tablet(s) PO QOD No Sta rt Date 04/09/2015 Inactive ipratropium-albuterol 0.5 mg-3 mg(2.5 mg base)/3 mL ne bulization soln RxNorm: 9139048 1 Unit Dose INH Q4H as needed No Start Date 09/09/2016 Inactive furosemide 40 mg tablet RxNorm: 582437 1 Tablet(s) PO QAM as ne eded No Start Date 09/24/2019 Inactive Vitamin D2 oral RxNorm: 4018 oral No Start Date 03/18/2015 Inacti ve pravastatin 40 mg tablet RxNorm: 793287 1/2 Tablet(s) PO QD No Star t Date 04/09/2015 Inactive ondansetron HCl 4 mg tablet RxNorm: 734557 1 Tablet(s) PO Q4H as needed for nausea and vomiting No Start Date 04/07/2016 Inactive furosemide 40 mg tablet RxNorm: 349381 2 Tablet(s) PO QAM No Start Date 09/26/2018 Inactive gabapentin 800 mg tablet RxNorm: 293832 1/2 Tablet(s) PO BID No Sta rt Date 06/21/2017 Inactive gabapentin 800 mg tablet RxNorm: 705533 1/2 Tablet(s) PO BID No Sta rt Date 07/05/2017 Inactive ProAir HFA 90 mcg/Actuation Aerosol Inhaler RxNorm: 931264 2 Puff(s) INH Q4H prn shortness of breath No Start Date 05/05/2010 Inactive scopolamine 1 mg over 3 days transdermal patch RxNorm: 03973 2 1 Application TD behind ear. Take off after three days No Start Date 10/10/2018 Inactive Metformin 500 mg Tab RxNorm: 089174 1 Tablet(s) PO QD No Start Date 0 05/05/2010 Inactive MS Contin 200 mg Tab RxNorm: 120103 1 Tablet(s) PO BID No Start Date 08/20/2011 Inactive Belladonna-Phenobarbital 48 mg tablet,extended release RxNor m: 2 Tablet(s) PO TID No Start Date 06/04/2016 Inactive Synthroid 112 mcg Tab RxNorm: 473210 1 Tablet(s) PO QD No Start Date 05/05/2010 Inactive Zegerid 40 mg-1.1 gram Cap RxNorm: 003859 1 Capsule(s) PO QD No Sta rt Date 01/25/2012 Inactive Premarin 0.625 mg/g Vaginal Cream RxNorm: 890261 VAG In sert 1gm vaginally at bedtime 3 times weekly No Start Date 01/17/2011 Inactive potassium chloride ER 20 mEq tablet,extended release RxNorm: 378596 1 Tablet(s) PO QD No Start Date 04/24/2019 Inactive methocarbamol 750 mg tablet RxNorm: 302318 2 Tablet(s) PO TID as needed for muscle spasm No Start Date 07/08/2014 Inactive Biaxin XL Aníbal 500 mg 24 hr Tab RxNorm: 731165 Tablet(s) PO as d irected No Start Date 04/24/2013 Inactive Vitamin D3 1,000 unit tablet RxNorm: 288868 3 Tablet(s) PO QD No St art Date 06/01/2017 Inactive Morphine SR 120 mg multiphase 24 hr Cap RxNorm: 951453 1 Capsul e(s) PO BID No Start Date 04/09/2010 Inactive Silvadene 1 % topical cream RxNorm: 020676 1 Application TOP BI D to burn area No Start Date 01/31/2017 Inactive Prednisone 20 mg Tab RxNorm: 225143 1 Tablet(s) PO TID for 3days then BID for 4days No Start Date 01/25/2012 Inactive gabapentin 600 mg tablet RxNorm: 989735 1 Tablet(s) PO BID No Start Date 01/21/2015 Inactive topiramate 50 mg tablet RxNorm: 014023 1 Tablet(s) PO QHS No Start Date 03/30/2018 Inactive Januvia 100 mg tablet RxNorm: 536119 1/2 Tablet(s) PO QD No Start D ate 12/25/2015 Inactive Diazepam 10 mg Tab RxNorm: 381110 1 Tablet(s) PO BID and PRN No Sta rt Date 06/08/2010 Inactive Medication Administered No Medication Administered data Immunizations Vaccine Codes Date Status Influenza CVX: 141 09/28/2012 Pneumovax Unknown 09/28/2012 Influenza (Adult) CVX: 141 09/02/2010 Results No Results data Procedures Procedure Codes Date THER/PROPH/DIAG INJ SC/IM CPT-4: 21219 07/10/2019 METHYLPREDNISOLONE INJECTION CPT-4: J2930 07/10/2019 URINALYSIS NONAUTO W/O SCOPE CPT-4: 93281 09/06/2018 URINE CULTURE/ COLONY COUNT CPT-4: 39268 09/06/2018 DRAIN/INJECT JOINT/BURSA CPT-4: 08998 04/29/2017 TRIAMCINOLONE ACET INJ NOS CPT-4: J3301 04/29/2017 DEXAMETHASONE SODIUM PHOS CPT-4: J1100 04/29/2017 INFLUENZA ASSAY W/OPTIC CPT-4: 88616 12/01/2016 RESPIRATORY CULTURE & STAIN CPT-4: 06488 07/09/2016 TB INTRADERMAL TEST CPT-4: 59450 04/21/2016 DRAIN/INJECT JOINT/BURSA CPT-4: 40099 11/07/2013 METHYLPREDNISOLONE 40 MG INJ CPT-4: J1030 11/07/2013 TRIAMCINOLONE ACET INJ NOS CPT-4: J3301 11/07/2013 DRAIN/INJECT JOINT/BURSA CPT-4: 55450 08/08/2013 METHYLPREDNISOLONE 40 MG INJ CPT-4: J1030 08/08/2013 TRIAMCINOLONE ACET INJ NOS CPT-4: J3301 08/08/2013 FLU VACCINE 3 YRS & > IM UP 64 CPT-4: 69298 2 PNEUMOCOCCAL VACC 23 ADITYA IM CPT-4: 22931 09/28/2012 IMMUNIZATION ADMIN CPT-4: 18931 09/28/2012 IMMUNIZATION ADMIN EACH ADD CPT-4: 01472 09/28/2012 FLU VACCINE 3 YRS & > IM UP 64 CPT-4: 35017 0 IMMUNIZATION ADMIN CPT-4: 24786 09/02/2010 METHYLPREDNISOLONE INJECTION CPT-4: J2930 05/07/2010 THER/PROPH/DIAG INJ SC/IM CPT-4: 79947 05/07/2010 Vital Signs Date Vital 11/29/2019 Blood [...] 1: 122/78 Code: 8480-6 BMI: 29.5 Code: 40746-4 Heart Rate 1: 76 bpm Height: 5'4" Respiratory Rate: 20 bpm SpO2: 96% Tempera ture: 37.0 (C) / 98.6 (F) Weight: 172 lbs 01/25/2019 Blood Pressure 1: 132/80 Code: 8480-6 BMI: 29.7 Code: 27599-5 Heart Rate 1: 84 bpm Height: 5'4" Respiratory Rate: 22 bpm SpO2: 98% Tempera ture: 36.9 (C) / 98.4 (F) Weight: 173 lbs 01/03/2019 Blood Pressure 1: 116/70 Code: 8480-6 BMI: 29.5 Code: 06067-5 Heart Rate 1: 92 bpm Height: 5'4" Respiratory Rate: 24 bpm SpO2: 98% Tempera ture: 37.2 (C) / 98.9 (F) Weight: 172 lbs 11/21/2018 Blood Pressure 1: 146/82 Code: 8480-6 BMI: 28.2 Code: 52132-8 Heart Rate 1: 88 bpm Height: 5'4" Respiratory Rate: 22 bpm SpO2: 97% Tempera ture: 36.9 (C) / 98.4 (F) Weight: 164 lbs 10/27/2018 Blood Pressure 1: 122/70 Code: 8480-6 BMI: 27.6 Code: 75541-2 Heart Rate 1: 88 bpm Height: 5'4" Respiratory Rate: 20 bpm SpO2: 96% Tempera ture: 36.8 (C) / 98.3 (F) Weight: 161 lbs 10/18/2018 Blood Pressure 1: 126/70 Code: 8480-6 BMI: 28.3 Code: 24654-5 Heart Rate 1: 76 bpm Height: 5'4" Respiratory Rate: 20 bpm SpO2: 95% Tempera ture: 37.0 (C) / 98.6 (F) Weight: 165 lbs 09/27/2018 Blood Pressure 1: 124/78 Code: 8480-6 BMI: 27.1 Code: 77010-1 Heart Rate 1: 88 bpm Height: 5'4" Respiratory Rate: 20 bpm SpO2: 98% Tempera ture: 36.4 (C) / 97.6 (F) Weight: 158 lbs 09/14/2018 Blood Pressure 1: 140/72 Code: 8480-6 BMI: 26.1 Code: 26962-2 Heart Rate 1: 100 bpm Height: 5'4" Respiratory Rate: 20 bpm SpO2: 97% Tempera ture: 36.9 (C) / 98.4 (F) Weight: 152 lbs 09/06/2018 Blood Pressure 1: 156/82 Code: 8480-6 BMI: 26.3 Code: 43292-9 Heart Rate 1: 100 bpm Height: 5'4" Respiratory Rate: 28 bpm SpO2: 95% Tempera ture: 37.2 (C) / 98.9 (F) Weight: 153 lbs 08/16/2018 Blood Pressure 1: 130/78 Code: 8480-6 Heart Rate 1: 87 bpm Respiratory Rate: 24 bpm SpO2: 94% Temperature: 36.9 (C) / 98.4 (F) We ight: 147 lbs 8 oz 07/07/2018 Blood Pressure 1: 116/78 Code: 8480-6 BMI: 22.7 Code: 67503-1 Heart Rate 1: 88 bpm Height: 5'4" Respiratory Rate: 22 bpm SpO2: 98% Tempera ture: 36.5 (C) / 97.7 (F) Weight: 132 lbs 05/31/2018 Blood Pressure 1: 128/78 Code: 8480-6 BMI: 22.3 Code: 42130-3 Heart Rate 1: 92 bpm Height: 5'4" Respiratory Rate: 26 bpm SpO2: 94% Tempera ture: 36.7 (C) / 98.1 (F) Weight: 130 lbs 03/31/2018 Blood Pressure 1: 136/78 Code: 8480-6 BMI: 21.5 Code: 76333-3 Heart Rate 1: 76 bpm Height: 5'4" Respiratory Rate: 24 bpm SpO2: 95% Tempera ture: 36.8 (C) / 98.3 (F) Weight: 125 lbs 01/26/2018 Blood Pressure 1: 142/64 Code: 8480-6 BMI: 20.6 Code: 09689-5 Heart Rate 1: 90 bpm Height: 5'4" Respiratory Rate: 24 bpm SpO2: 92% Tempera ture: 36.3 (C) / 97.3 (F) Weight: 120 lbs 10/26/2017 Blood Pressure 1: 124/70 Code: 8480-6 BMI: 20.3 Code: 44403-7 Heart Rate 1: 76 bpm Height: 5'4" Respiratory Rate: 22 bpm SpO2: 94% Tempera ture: 36.7 (C) / 98.1 (F) Weight: 118 lbs 09/23/2017 Blood Pressure 1: 106/70 Code: 8480-6 BMI: 19.2 Code: 11484-8 Heart Rate 1: 76 bpm Height: 5'4" Respiratory Rate: 20 bpm SpO2: 94% Tempera ture: 36.8 (C) / 98.3 (F) Weight: 112 lbs 08/12/2017 Blood Pressure 1: 116/68 Code: 8480-6 BMI: 20.1 Code: 72767-0 Heart Rate 1: 80 bpm Height: 5'4" Respiratory Rate: 22 bpm SpO2: 95% Tempera ture: 36.8 (C) / 98.2 (F) Weight: 117 lbs 07/06/2017 Blood Pressure 1: 136/78 Code: 8480-6 BMI: 20.6 Code: 25382-2 Heart Rate 1: 76 bpm Height: 5'4" Respiratory Rate: 24 bpm SpO2: 96% Tempera ture: 36.8 (C) / 98.2 (F) Weight: 120 lbs 06/02/2017 Blood Pressure 1: 112/70 Code: 8480-6 Heart Rate 1: 92 bpm Height: 5'4" Respiratory Rate: 24 bpm SpO2: 95% Temperature: 37.0 (C) / 98.6 (F) Weight: 04/29/2017 Blood Pressure 1: 94/52 Code: 8480-6 BMI: 19.6 C ode: 32141-1 Heart Rate 1: 84 bpm Height: 5'4" [...] 92/58 Code: 8480-6 BMI: 19.2 C ode: 52672-5 Heart Rate 1: 84 bpm Height: 5'4" Respiratory Rate: 26 bpm SpO2: 95% Tempera ture: 36.7 (C) / 98.0 (F) Weight: 112 lbs 12/01/2016 Blood Pressure 1: 114/70 Code: 8480-6 BMI: 19.2 Code: 88869-4 Heart Rate 1: 96 bpm Height: 5'4" Respiratory Rate: 28 bpm SpO2: 93% Tempera ture: 38.3 (C) / 101.0 (F) Weight: 112 lbs 10/27/2016 Blood Pressure 1: 126/66 Code: 8480-6 BMI: 19.6 Code: 55755-3 Heart Rate 1: 92 bpm Height: 5'4" Respiratory Rate: 28 bpm SpO2: 90% Tempera ture: 36.8 (C) / 98.3 (F) Weight: 114 lbs 09/09/2016 Blood Pressure 1: 126/74 Code: 8480-6 Heart Rate 1: 104 bpm Height: 5'4" Respiratory Rate: 32 bpm SpO2: 88% Temperature: 37 .2 (C) / 99.0 (F) 08/26/2016 Blood Pressure 1: 134/82 Code: 8480-6 BMI: 22.0 Code: 02120-5 Heart Rate 1: 84 bpm Height: 5'4" Respiratory Rate: 24 bpm SpO2: 94% Tempera ture: 36.8 (C) / 98.3 (F) Weight: 128 lbs 05/21/2016 Blood Pressure 1: 142/80 Code: 8480-6 BMI: 21.6 Code: 21312-1 Heart Rate 1: 104 bpm Height: 5'4" Respiratory Rate: 22 bpm SpO2: 93% Tempera ture: 36.0 (C) / 96.8 (F) Weight: 126 lbs 03/25/2016 Blood Pressure 1: 126/62 Code: 8480-6 Heart Rate 1: 88 bpm Respiratory Rate: 20 bpm SpO2: 92% Temperature: 36.8 (C) / 98.3 (F) We ight: 130 lbs 01/23/2016 Blood Pressure 1: 146/82 Code: 8480-6 BMI: 24.1 Code: 75885-9 Heart Rate 1: 92 bpm Height: 5'3" Respiratory Rate: 22 bpm Temperature: 37 .1 (C) / 98.8 (F) Weight: 136 lbs 12/26/2015 Blood Pressure 1: 142/78 Code: 8480-6 BMI: 24.6 Code: 10041-4 Heart Rate 1: 78 bpm Height: 5'3" Respiratory Rate: 20 bpm Temperature: 36 .7 (C) / 98.1 (F) Weight: 139 lbs 12/03/2015 Blood Pressure 1: 126/60 Code: 8480-6 BMI: 24.6 Code: 50096-3 Heart Rate 1: 100 bpm Height: 5'3" Respiratory Rate: 28 bpm Temperature: 37 .6 (C) / 99.6 (F) Weight: 139 lbs 09/10/2015 Blood Pressure 1: 124/64 Code: 8480-6 BMI: 23.7 Code: 62029-6 Heart Rate 1: 88 bpm Height: 5'3" Respiratory Rate: 24 bpm SpO2: 95% Tempera ture: 36.4 (C) / 97.6 (F) Weight: 134 lbs 08/06/2015 Blood Pressure 1: 114/76 Code: 8480-6 BMI: 23.2 Code: 38441-7 Heart Rate 1: 88 bpm Height: 5'3" Respiratory Rate: 22 bpm Temperature: 36 .6 (C) / 97.9 (F) Weight: 131 lbs 07/18/2015 Blood Pressure 1: 144/78 Code: 8480-6 BMI: 23.7 Code: 65906-0 Heart Rate 1: 84 bpm Height: 5'3" Respiratory Rate: 20 bpm Temperature: 37 .2 (C) / 99.0 (F) Weight: 134 lbs 04/10/2015 Blood Pressure 1: 110/64 Code: 8480-6 Heart Rate 1: 80 bpm Height: Respiratory Rate: 20 bpm Temperature: 37.1 (C) / 98.8 (F) Weight: 03/05/2015 Blood Pressure 1: 136/80 Code: 8480-6 BMI: 23.9 Code: 72900-3 Heart Rate 1: 76 bpm Height: 5'3" Respiratory Rate: 24 bpm Temperature: 37 .0 (C) / 98.6 (F) Weight: 135 lbs 01/30/2015 Blood Pressure 1: 142/80 Code: 8480-6 BMI: 23.0 Code: 49359-1 Heart Rate 1: 96 bpm Height: 5'3" Respiratory Rate: 22 bpm Temperature: 36 .2 (C) / 97.2 (F) Weight: 130 lbs 01/02/2015 Blood Pressure 1: 124/70 Code: 8480-6 BMI: 23.4 Code: 26704-4 Heart Rate 1: 84 bpm Height: 5'3" Respiratory Rate: 24 bpm SpO2: 95% Tempera ture: 36.9 (C) / 98.5 (F) Weight: 132 lbs 10/03/2014 Blood Pressure 1: 106/68 Code: 8480-6 BMI: 22.5 Code: 15164-6 Heart Rate 1: 88 bpm Height: 5'3" Respiratory Rate: 24 bpm Temperature: 37 .0 (C) / 98.6 (F) Weight: 127 lbs 08/27/2014 Blood Pressure 1: 124/68 Code: 8480-6 BMI: 21.1 Code: 05778-9 Heart Rate 1: 88 bpm Height: 5'3" [...] 1: 120/70 Code: 8480-6 BMI: 19.2 Code: 68208-0 Heart Rate 1: 70 bpm Height: 5'4" Respiratory Rate: 20 bpm Temperature: 36 .9 (C) / 98.4 (F) Weight: 112 lbs 06/28/2013 Blood Pressure 1: 102/68 Code: 8480-6 BMI: 19.6 Code: 74103-3 Heart Rate 1: 76 bpm Height: 5'4" Respiratory Rate: 20 bpm Temperature: 36 .8 (C) / 98.2 (F) Weight: 114 lbs 05/31/2013 Blood Pressure 1: 106/70 Code: 8480-6 BMI: 18.9 Code: 15927-9 Heart Rate 1: 100 bpm Height: 5'4" Respiratory Rate: 20 bpm Temperature: 36 .4 (C) / 97.6 (F) Weight: 110 lbs 05/03/2013 Blood Pressure 1: 126/70 Code: 8480-6 BMI: 19.1 Code: 08267-8 Heart Rate 1: 88 bpm Height: 5'4" Respiratory Rate: 20 bpm Temperature: 37 .1 (C) / 98.8 (F) Weight: 111 lbs 04/25/2013 Blood Pressure 1: 114/68 Code: 8480-6 BMI: 19.4 Code: 46018-5 Heart Rate 1: 92 bpm Height: 5'4" Respiratory Rate: 24 bpm SpO2: 96% Tempera ture: 37.7 (C) / 99.8 (F) Weight: 113 lbs 03/08/2013 Blood Pressure 1: 94/68 Code: 8480-6 BMI: 21.3 C ode: 92106-0 Heart Rate 1: 88 bpm Height: 5'4" Respiratory Rate: 24 bpm Temperature: 37 .0 (C) / 98.6 (F) Weight: 124 lbs 02/07/2013 Blood Pressure 1: 106/64 Code: 8480-6 BMI: 21.8 Code: 46526-0 Heart Rate 1: 84 bpm Height: 5'4" Respiratory Rate: 22 bpm Temperature: 36 .8 (C) / 98.2 (F) Weight: 127 lbs 01/10/2013 Blood Pressure 1: 122/68 Code: 8480-6 BMI: 21.6 Code: 83722-7 Heart Rate 1: 94 bpm Height: 5'4" SpO2: 94% Temperature: 36.7 (C) / 98.1 (F) Weight: 126 lbs 09/28/2012 Blood Pressure 1: 124/78 Code: 8480-6 BMI: 24.9 Code: 77254-3 Heart Rate 1: 92 bpm Height: 5'4" Respiratory Rate: 20 bpm Temperature: 36 .7 (C) / 98.1 (F) Weight: 145 lbs 06/28/2012 Blood Pressure 1: 134/80 Code: 8480-6 BMI: 24.9 Code: 47183-7 Heart Rate 1: 76 bpm Height: 5'4" Respiratory Rate: 20 bpm Temperature: 36 .8 (C) / 98.2 (F) Weight: 145 lbs 05/03/2012 Blood Pressure 1: 108/62 Code: 8480-6 BMI: 25.6 Code: 81814-8 Heart Rate 1: 88 bpm Height: 5'4" Temperature: 36.2 (C) / 97.2 (F) Weight: 149 lbs 03/01/2012 Blood Pressure 1: 124/66 Code: 8480-6 BMI: 25.1 Code: 33708-2 Heart Rate 1: 76 bpm Height: 5'4" Respiratory Rate: 20 bpm Temperature: 36 .6 (C) / 97.9 (F) Weight: 146 lbs 01/26/2012 Blood Pressure 1: 118/82 Code: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 Education: Patient Medication Summary Completed 01/28/2011 Patient Education: Chantix Unbranded Comp leted 01/28/2011 Appointment: Vika Renteria WPtel: [address] [place] [address] FOLLOW UP 01/14/2011 Visit Plan: Finish abx Diflucan for vagi nitis Premarin vaginal cream Smoking cessation 12/17/2010 Appointment: Vika Renteria WPtel: [address] [place] [phone] [facility] Follow Up 12/17/2010 Patient Education: Patient Medication Summary Completed 12/17/2010 Appointment: Vika Renteria WPtel: [address] [place], [place] [phone] FOLLOW UP 11/06/2010 Visit Plan: Start PT Use SVNs every 4hrs Smoking Cessation Change MS Contin to 200mg q 12hrs 2010 Appointment: Vika Renteria WPtel: [address] [place], [place] [phone] FOLLOW UP 2010 Patient Education: Patient Medication Summary Completed 2010 Visit Plan: Prednisone taper for pain an d lungs 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 Increase fluoxetine to 60mg QD for acute stress reaction 10/02/2010 Appointment: Vika Renteria WPtel: [address] [place], [place] [phone] FOLLOW UP 10/02/2010 Patient Education: Patient Medication Summary Completed 10/02/2010 Visit Plan: Check CT Head, Cervical, Tho racic, and Lumbar Spine Cont current meds Bactrim for left toe 09/24/2010 Appointment: Vika Renteria WPtel: [address] [place], [place] [phone] CHECK UP 09/24/2010 Patient Education: Patient Medication Summary Completed 09/24/2010 Appointment: Vika Renteria WPtel: [address] [place], [place] [phone] FOLLOW UP 09/02/2010 Patient Education: Patient Medication Summary Completed 09/02/2010 Visit Plan: Return for 2nd epidural Obse rve right leg lesion Cont Symbicort and Spiriva 07/14/2010 Appointment: Vika Renteria WPtel: [address] [place], [place] [phone] FOLLOW UP 07/14/2010 Patient Education: Patient Medication Summary Completed 07/14/2010 Appointment: Vika Renteria WPtel: [address] [place] [place] [address] FOLLOW UP 05/27/2010 Appointment: Vika Renteria WPtel: [address] [place], [place] [phone] FOLLOW UP 05/14/2010 Visit Plan: SVN with Albuterol 0.083% Q4 hrs and Q2hrs prn. Restart Spiriva Smoking Cessation 05/07/2010 Appointment: Vika Renteria WPtel: [address] [place] [place] [address] FOLLOW UP 05/07/2010 Patient Education: Patient Medication Summary Completed 05/07/2010 Appointment: Vika Renteria WPtel: [address] [place] [place] [address] ACUTE ILLNESS 04/08/2010 Patient Education: Patient Medication Summary Completed 04/08/2010 Referral: Kyle Billings WPtel: [address] [address] [place] Referral Completed Referral: Jaylan Matute WPtel: [address] [facility] [address] [id number] [place] Referral Initiated Referral: Kyle Billings WPtel: [address] [address] [place] Referral Appointment Requested Instructions Comment . [...] albuterol with ipratropium q4hrs prn in nebulizer Stephanie Alfredo Will repeat CT scan of chest in [...]
--- OUTSIDE RECORDS SUMMARY | 2020-04-24 22:22 | XMS REPORT | CCD ---
Author Author Yana Renteria D.O. Organization [facility] Address [address] [place] [address] Phone Care Team Providers Care Tape Duplicator Name Role Phone Vika Renteria D.O., PP Unavailable CCM Unavailable Summary Purpose Interface Exchange Insurance Providers Payer name Policy type / Coverage type Covered alliance party ID Effective Begin Date Effective End Date [employer] [facility] [place] Medicaid [id number] 2018 U nknown Family History Family History data not found Social History Social History Element Codes Description Effective Dates Marital status Unknown 06/28/[address]: [id number] Currently smokes tobacco 05/2013 Allergies, Adverse Reactions, [...] Start Date Stop Date Status Fill Instructions furosemide 40 mg tablet RxNorm: 299160 TAKE ONE TABLET BY MOUTH EVERY MORNING 03/13/2020 No Stop Date Active hydroxyzine HCl 50 mg tablet RxNorm: 607716 1 Tablet(s) Oral two times a day to take with morphine--replaces benadryl 03/12/2020 04/11/2020 Active prednisone 1 mg tablet RxNorm: 502571 1 Tablet(s) Oral two times a day to take with hydroxyzine 03/12/2020 No Stop Date Active prednisolone 5 mg tablet RxNorm: 408135 1 Tablet(s) Oral two ti mes a day 02/22/2020 03/23/2020 Active prednisolone 5 mg tablet RxNorm: 937067 1 Tablet(s) Oral two ti mes a day 02/22/2020 02/21/2020 Inactive Symbicort 160 mcg-4.5 mcg/actuation HFA aerosol inhaler RxNo rm: 7206563 INHALE TWO PUFFS BY MOUTH TWICE A DAY 02/19/2020 No Stop Date Active Daliresp 500 mcg tablet RxNorm: 8615625 TAKE ONE TABLET BY MOUTH DAILY 02/19/2020 No Stop Date Active prednisone 20 mg tablet RxNorm: 856572 1 Tablet(s) Oral two yumi es a day 02/13/2020 02/20/2020 Inactive oxycodone 30 mg tablet RxNorm: 5935358 1 Tablet(s) Oral four times a day replaces MS Contin 02/13/2020 02/22/2020 Inactive levothyroxine 25 mcg tablet RxNorm: 455380 TAKE ONE TAB LET BY MOUTH EVERY MORNING 02/09/2020 No Stop Date Active MS Contin 200 mg tablet,extended release RxNorm: 768485 1 Tablet(s) Oral two times a day 02/01/2020 03/01/2020 Inactive cyclobenzaprine 10 mg tablet RxNorm: 922875 TAKE ONE TA BLET BY MOUTH THREE TIMES A DAY NEEDED 01/31/2020 No Stop Date Active Premarin 0.45 mg tablet RxNorm: 488797 TAKE ONE TABLET BY MOUTH DAILY 01/31/2020 No Stop Date Active metformin 500 mg tablet RxNorm: 769870 1 Tablet(s) Oral QD 01/31/20 20 04/29/2020 Active gabapentin 300 mg capsule RxNorm: 141794 TAKE ONE CAPSULE BY [facility] TWICE A DAY 01/16/2020 No Stop Date Active potassium chloride ER 20 mEq tablet,extended release RxNorm: 776468 TAKE ONE TABLET BY MOUTH DAILY 01/08/2020 07/05/2020 Active ProAir HFA 90 mcg/actuation aerosol inhaler RxNorm: 551344 INHALE ONE PUFF BY MOUTH EVERY 4 HOURS FOR WHEEZING OR FOR SHORTNESS OF BREATH 01/04/2020 No Stop Date Active metformin 500 mg tablet RxNorm: 653257 1 Tablet(s) Oral QD 01/04/20 20 01/30/2020 Inactive MS Contin 200 mg tablet,extended release RxNorm: 615116 1 Tablet(s) Oral two times a day 01/02/2020 01/31/2020 Inactive Pulmicort 1 mg/2 mL suspension for nebulization RxNorm: 6168 19 USE ONE VIAL VIA NEBULIZER BY MOUTH TWICE A DAY 12/21/2019 No Stop Date Active furosemide 40 mg tablet RxNorm: 460261 TAKE ONE TABLET BY MOUTH EVERY MORNING NEEDED 12/20/2019 03/12/2020 Inactive levothyroxine 25 mcg tablet RxNorm: 085525 TAKE ONE TAB LET BY MOUTH EVERY MORNING 12/20/2019 02/08/2020 Inactive MS Contin 200 mg tablet,extended release RxNorm: 937305 1 Tablet(s) Oral two times a day 12/05/2019 01/01/2020 Inactive Medrol (Aníbal) 4 mg tablets in a dose pack RxNorm: 500212 6 Tablet(s) Oral QD --then as directed 11/30/2019 12/05/2019 Inactive MS Contin 200 mg tablet,extended release RxNorm: 114660 1 Tablet(s) Oral two times a day 11/29/2019 12/04/2019 Inactive cyclobenzaprine 10 mg tablet RxNorm: 602126 TAKE ONE TA BLET BY MOUTH THREE TIMES A DAY NEEDED 11/21/2019 01/30/2020 Inactive MS Contin 200 mg tablet,extended release RxNorm: 609003 1 Tablet(s) Oral two times a day replaces 100mg dose 11/03/2019 11/02/2019 Inactive MS Contin 200 mg tablet,extended release RxNorm: 541152 1 Tablet(s) Oral two times a day replaces 100mg dose 11/03/2019 11/29/2019 Inactive ferrous sulfate 325 mg (65 mg iron) tablet RxNorm: 146364 1 Tab let(s) Oral QD 10/30/2019 No Stop Date Active MS Contin 100 mg tablet,extended release RxNorm: 489084 1 Table t(s) Oral QD 10/30/2019 10/29/2019 Inactive MS Contin 100 mg tablet,extended release RxNorm: 118315 1 Table t(s) Oral QD 10/30/2019 11/02/2019 Inactive Relistor 150 mg tablet RxNorm: 7303583 TAKE THREE TABLETS BY BENOIT TH DAILY 10/25/2019 No Stop Date Active pantoprazole 40 mg tablet,delayed release RxNorm: 745394 1 Tabl et(s) Oral QD 10/25/2019 No Stop Date Active Minipress 2 mg capsule RxNorm: 843884 1 Capsule(s) Oral QAM and 3 at bedtime 10/25/2019 No Stop Date Active Lancets, Super Thin RxNorm: 1 Unit Dose Miscellaneous QD 9 11/27/2020 Active Cymbalta 60 mg capsule,delayed release RxNorm: 816578 1 Capsule (s) Oral QAM 10/25/2019 No Stop Date Active Cymbalta 30 mg capsule,delayed release RxNorm: 164742 1 Capsule (s) Oral QAM 10/25/2019 No Stop Date Active oxycodone 15 mg tablet RxNorm: 7890947 1 Tablet(s) Oral four times a day as needed for pain 10/25/2019 11/28/2019 Inactive metformin 500 mg tablet RxNorm: 891578 1 Tablet(s) Oral QD 10/25/20 01/03/2020 Inactive levothyroxine 25 mcg tablet RxNorm: 464234 1 Tablet(s) Oral QAM 02/201912/19/2019 Inactive levothyroxine 25 mcg tablet RxNorm: 876807 1 Tablet(s) Oral QAM 02/201910/24/2019 Inactive MS Contin 100 mg tablet,extended release RxNorm: 147297 1 Tablet(s) Oral two times a day replaces fentanyl 10/25/2019 10/25/2019 Inactive Premarin 0.45 mg tablet RxNorm: 547978 TAKE ONE TABLET BY MOUTH DAILY 10/24/2019 01/30/2020 Inactive Duragesic 100 mcg/hr transdermal patch RxNorm: 837986 2 Application TD Q48H for pain 10/18/2019 10/24/2019 Inactive gabapentin 300 mg capsule RxNorm: 630012 TAKE ONE CAPSULE BY MO UTH TWICE A DAY 10/16/2019 01/15/2020 Inactive cyclobenzaprine 10 mg tablet RxNorm: 220986 TAKE ONE TA BLET BY MOUTH THREE TIMES A DAY NEEDED 09/27/2019 11/20/2019 Inactive Relistor 150 mg tablet RxNorm: 9491545 TAKE THREE TABLETS BY BENOIT TH DAILY 09/25/2019 10/24/2019 Inactive ProAir HFA 90 mcg/actuation aerosol inhaler RxNorm: 016097 INHALE ONE PUFF BY MOUTH EVERY 4 HOURS FOR WHEEZING OR FOR SHORTNESS OF BREATH 09/25/2019 01/03/2020 Inactive furosemide 40 mg tablet RxNorm: 798929 1 Tablet(s) Oral QAM as needed 09/25/2019 09/25/2019 Inactive oxycodone 15 mg tablet RxNorm: 2540303 1 Tablet(s) PO QID as nee ded for pain 09/21/2019 10/24/2019 Inactive Duragesic 100 mcg/hr transdermal patch RxNorm: 379707 2 Application TD Q48H for pain 09/19/2019 10/17/2019 Inactive Daliresp 500 mcg tablet RxNorm: 4132416 1 Tablet(s) Oral QD 019 02/18/2020 Inactive Relistor 150 mg tablet RxNorm: 9526132 TAKE THREE TABLETS BY BENOIT TH DAILY 07/25/2019 07/30/2019 Inactive cyclobenzaprine 10 mg tablet RxNorm: 999907 TAKE ONE TA BLET BY MOUTH THREE TIMES A DAY NEEDED 07/25/2019 09/22/2019 Inactive potassium chloride ER 20 mEq tablet,extended release RxNorm: 041991 TAKE ONE TABLET BY MOUTH DAILY 07/25/2019 01/07/2020 Inactive fluoxetine 40 mg capsule RxNorm: 807638 TAKE ONE CAPSULE BY BENOIT TH EVERY MORNING 07/11/2019 10/24/2019 Inactive Medrol (Aníbal) 4 mg tablets in a dose pack RxNorm: 845355 6 Tablet(s) PO QD --then as directed 07/10/2019 07/15/2019 Inactive omeprazole 40 mg capsule,delayed release RxNorm: 734466 1 Capsule(s) PO QD for stomach TAKE ONE CAPSULE BY MOUTH DAILY 07/10/2019 10/24/2019 Inactive Augmentin 875 mg-125 mg tablet RxNorm: 494897 1 Tablet(s) PO BID 07/16/2019 Inactive Trulicity 0.75 mg/0.5 mL subcutaneous pen injector RxNorm: 1 881498 0.75 Milliliter(s) SQ weekly 07/05/2019 10/24/2019 Inactive Compazine 10 mg tablet RxNorm: 757821 TAKE ONE TABLET B Y MOUTH FOUR TIMES A DAY NEEDED FOR NAUSEA 06/20/2019 07/19/2019 Inactive ProAir HFA 90 mcg/actuation aerosol inhaler RxNorm: 073767 INHALE ONE PUFF BY MOUTH EVERY 4 HOURS FOR WHEEZING OR FOR SHORTNESS OF BREATH 06/20/2019 06/23/2019 Inactive Daliresp 500 mcg tablet RxNorm: 0495253 TAKE ONE TABLET BY MOUTH DAILY 06/12/2019 09/10/2019 Inactive gpnucajj-oktgpmozo-hiycxwtlk 3.5 mg/mL-10,000 unit/mL- 1 % ear solution RxNorm: 127722 4 Drop(s) otic (ear) TID to left ear 06/05/2019 10/24/2019 Inac tive furosemide 40 mg tablet RxNorm: 876745 TAKE ONE TABLET BY MOUTH EVERY MORNING 05/26/2019 07/09/2019 Inactive Duragesic 100 mcg/hr transdermal patch RxNorm: 966548 2 Application TD Q48H for pain 05/16/2019 06/14/2019 Inactive oxycodone 15 mg tablet RxNorm: 1988606 1 Tablet(s) PO QID as nee ded for pain 05/10/2019 09/20/2019 Inactive doxycycline hyclate 100 mg capsule RxNorm: 7214213 1 Capsule(s) PO BID 05/03/2019 05/12/2019 Inactive prednisone 20 mg tablet RxNorm: 938696 1 Tablet(s) PO T ID for 3 days then 1 po BID for 3 days then one daily for 3 days 05/03/2019 07/11/2019 Inactiv e Ozempic 0.25 mg or 0.5 mg (2 mg/1.5 mL) subcutaneous p en injector RxNorm: 1893505 0.5 Milligram(s) SQ QW 05/03/2019 07/09/2019 Inactive fluconazole 100 mg tablet RxNorm: 360083 1 Tablet(s) PO QD 05/03/2005/07/2019 Inactive Premarin 0.45 mg tablet RxNorm: 308089 TAKE ONE TABLET BY MOUTH DAILY 05/03/2019 10/23/2019 Inactive potassium chloride ER 20 mEq tablet,extended release RxNorm: 059707 1 Tablet(s) PO QD 04/27/2019 07/25/2019 Inactive potassium chloride ER 20 mEq tablet,extended release RxNorm: 992281 1 Tablet(s) PO QD 04/25/2019 04/26/2019 Inactive Compazine 10 mg tablet RxNorm: 298833 1 Tablet(s) PO QID as nee ded for nausea 04/25/2019 05/04/2019 Inactive ProAir HFA 90 mcg/actuation aerosol inhaler RxNorm: 111344 INHALE ONE PUFF BY MOUTH EVERY 4 HOURS FOR WHEEZING OR FOR SHORTNESS OF BREATH 04/12/2019 06/10/2019 Inactive Medrol (Aníbal) 4 mg tablets in a dose pack RxNorm: 925113 6 Tablet(s) PO QD --then as directed 04/11/2019 04/16/2019 Inactive Symbicort 160 mcg-4.5 mcg/actuation HFA aerosol inhaler RxNo rm: 8078145 2 Puff(s) INH BID 04/10/2019 10/06/2019 Inactive levothyroxine 50 mcg tablet RxNorm: 936531 1 Tablet(s) PO QD 201810/24/2019 Inactive gabapentin 300 mg capsule RxNorm: 131576 1 Capsule(s) PO BID 201810/02/2019 Inactive Symbicort 160 mcg-4.5 mcg/actuation HFA aerosol inhaler RxNo rm: 2344015 2 Puff(s) INH BID 04/06/2019 04/09/2019 Inactive oxycodone 15 mg tablet RxNorm: 7360401 1 Tablet(s) PO QID as nee ded for pain 04/05/2019 05/09/2019 Inactive levothyroxine 50 mcg tablet RxNorm: 577765 1 Tablet(s) PO QD 201804/09/2019 Inactive furosemide 40 mg tablet RxNorm: 279602 TAKE ONE TABLET BY MOUTH EVERY MORNING 03/21/2019 04/19/2019 Inactive levothyroxine 50 mcg tablet RxNorm: 911300 TAKE ONE TABLET BY M OUTH DAILY 03/21/2019 03/27/2019 Inactive Duragesic 100 mcg/hr transdermal patch RxNorm: 793742 2 Application TD Q48H for pain 03/13/2019 04/11/2019 Inactive oxycodone 15 mg tablet RxNorm: 9619579 1 Tablet(s) PO QID as nee ded for pain 03/06/2019 04/04/2019 Inactive Relistor 150 mg tablet RxNorm: 2844103 3 Tablet(s) PO QD 02/28/2019 0 05/28/2019 Inactive cyclobenzaprine 10 mg tablet RxNorm: 180858 1 Tablet(s) PO TID as needed 02/28/2019 05/28/2019 Inactive phentermine 37.5 mg tablet RxNorm: 624885 1 Tablet(s) PO QAM 201803/15/2019 Inactive Duragesic 100 mcg/hr transdermal patch RxNorm: 161496 2 Application TD Q48H for pain 02/09/2019 03/10/2019 Inactive Daliresp 500 mcg tablet RxNorm: 0377791 TAKE ONE TABLET BY MOUTH DAILY 01/31/2019 05/30/2019 Inactive Premarin 0.45 mg tablet RxNorm: 996327 1 Tablet(s) PO QD 01/31/2019 0 04/30/2019 Inactive fluoxetine 40 mg capsule RxNorm: 826549 Capsule(s) TAKE ONE CAPSULE BY MOUTH EVERY MORNING 01/31/2019 04/30/2019 Inactive levothyroxine 50 mcg tablet RxNorm: 969865 1 Tablet(s) PO QD 201804/10/2019 Inactive follow up in 3 weeks levothyroxine 50 mcg tablet RxNorm: 161653 1 Tablet(s) PO QD 201801/25/2019 Inactive follow up in 3 weeks potassium chloride ER 20 mEq tablet,extended release RxNorm: 676764 2 Tablet(s) PO BID 01/23/2019 01/08/2020 Inactive Synthroid 50 mcg tablet RxNorm: 677406 TAKE ONE TABLET BY MOUTH DAILY 01/16/2019 10/24/2019 Inactive potassium chloride ER 20 mEq tablet,extended release RxNorm: 842766 2 Tablet(s) PO BID 01/04/2019 01/22/2019 Inactive ProAir HFA 90 mcg/actuation aerosol inhaler RxNorm: 792942 INHALE ONE PUFF BY MOUTH EVERY 4 HOURS FOR WHEEZING OR SHORTNESS OF BREATH 01/04/201902/20 Inactive Request already responded to by other me ans (e.g. phone or fax) ProAir HFA 90 mcg/actuation aerosol inhaler RxNorm: 5833492 INHALE ONE PUFF BY MOUTH EVERY 4 HOURS FOR WHEEZING OR SHORTNESS OF BREATH 01/02/201912/23 Inactive gabapentin 300 mg capsule RxNorm: 668611 TAKE ONE CAPSULE BY MO UTH TWICE A DAY 12/30/2018 04/06/2019 Inactive furosemide 40 mg tablet RxNorm: 286497 1 Tablet(s) PO QAM 12/26/2018 02/23/2019 Inactive Compazine 10 mg tablet RxNorm: 639083 1 Tablet(s) PO QID as nee ded for nausea 12/07/2018 12/16/2018 Inactive metolazone 2.5 mg tablet RxNorm: 167630 TAKE ONE TABLET BY MOUT H EVERY MORNING 12/05/2018 01/03/2019 Inactive metformin ER 500 mg tablet,extended release 24 hr RxNorm: 86 0975 TAKE ONE TABLET BY MOUTH DAILY 12/05/2018 01/31/2020 Inactive Synthroid 50 mcg tablet RxNorm: 296119 1 Tablet(s) PO QD 11/25/2018 0 01/03/2019 Inactive DC any other synthroid strengths. Should be 50mcg only cyclobenzaprine 10 mg tablet RxNorm: 086342 TAKE ONE TA BLET BY MOUTH THREE TIMES A DAY NEEDED 11/09/2018 02/06/2019 Inactive metolazone 2.5 mg tablet RxNorm: 519643 1 Tablet(s) PO QAM repl aces 5mg dose 11/02/2018 12/01/2018 Inactive potassium chloride ER 20 mEq tablet,extended release RxNorm: 768496 2 Tablet(s) PO QD 2018 01/02/2019 Inactive Compazine 10 mg tablet RxNorm: 209708 1 Tablet(s) PO QID as nee ded for nausea 10/18/2018 12/07/2018 Inactive furosemide 40 mg tablet RxNorm: 902783 1 Tablet(s) PO QAM 10/12/2018 12/10/2018 Inactive ondansetron 8 mg disintegrating tablet RxNorm: 625384 1 Tablet(s) PO Q6H as needed 10/11/2018 10/17/2018 Inactive scopolamine 1 mg over 3 days transdermal patch RxNorm: 68981 2 1 Application TD behind ear. Take off after three days 10/11/2018 01/02/2019 Inactive furosemide 40 mg tablet RxNorm: 423034 1 Tablet(s) PO QAM 10/10/2018 12/26/2018 Inactive metolazone 5 mg tablet RxNorm: 884230 1 Tablet(s) PO QAM 10/06/2018 1 01/03/2018 Inactive metolazone 5 mg tablet RxNorm: 144806 1 Tablet(s) PO QAM 10/06/2018 1 12/05/2017 Inactive Xtampza ER 36 mg capsule sprinkle RxNorm: 9471509 1 Capsule(s) P O BID 10/05/2018 01/02/2019 Inactive Xtampza ER 36 mg capsule sprinkle RxNorm: 3181800 1 Capsule(s) P O BID 10/05/2018 02/12/2019 Inactive omeprazole 40 mg capsule,delayed release RxNorm: 391879 TAKE ONE CAPSULE BY MOUTH DAILY 10/03/2018 12/31/2018 Inactive Duragesic 100 mcg/hr transdermal patch RxNorm: 524662 2 Application TD Q48H for pain 09/30/2018 10/29/2018 Inactive Synthroid 50 mcg tablet RxNorm: 467348 1 Tablet(s) PO QD 09/29/2018 0 11/25/2018 Inactive DC any other synthroid strengths. Should be 50mcg only Synthroid 50 mcg tablet RxNorm: 548293 1 Tablet(s) PO QD 09/29/2018 1 11/28/2017 Inactive furosemide 40 mg tablet RxNorm: 926428 2 Tablet(s) PO Q AM for 1 week then every other day for 2 weeks 09/27/2018 10/12/2018 Inactive fluoxetine 40 mg capsule RxNorm: 565813 2 Capsule(s) PO QD 09/27/20 18 10/17/2018 Inactive potassium chloride ER 20 mEq tablet,extended release RxNorm: 742856 2 Tablet(s) PO QD for 1 week then every other day for 2 weeks 09/27/2018 2018 Inactive ProAir HFA 90 mcg/actuation aerosol inhaler RxNorm: 2454385 INHALE ONE PUFF BY MOUTH EVERY 4 HOURS FOR WHEEZING OR SHORTNESS OF BREATH 09/26/201811/23 Inactive Synthroid 75 mcg tablet RxNorm: 986201 1 Tablet(s) PO QD 09/09/2018 1 Inactive Synthroid 75 mcg tablet RxNorm: 054415 1 Tablet(s) PO QD 09/09/2018 1 11/28/2017 Inactive furosemide 40 mg tablet RxNorm: 320695 1 Tablet(s) PO QD 09/06/2018 1 Inactive potassium chloride ER 20 mEq tablet,extended release RxNorm: 930063 1 Tablet(s) PO QD 09/06/2018 09/19/2018 Inactive Duragesic 100 mcg/hr transdermal patch RxNorm: 432256 2 Application TD Q48H for pain 08/30/2018 09/28/2018 Inactive gabapentin 300 mg capsule RxNorm: 117848 TAKE ONE CAPSULE BY MO UT TWICE A DAY 08/23/2018 12/20/2018 Inactive Daliresp 500 mcg tablet RxNorm: 3861357 TAKE ONE TABLET BY MOUTH DAILY 08/23/2018 01/19/2019 Inactive Pulmicort 1 mg/2 mL suspension for nebulization RxNorm: 6168 19 USE ONE VIAL VIA NEBULIZER BY MOUTH TWICE A DAY 08/23/2018 07/11/2019 Inactive Synthroid 88 mcg tablet RxNorm: 811975 1 Tablet(s) PO QD 08/19/2018 1 Inactive Medrol (Aníbal) 4 mg tablets in a dose pack RxNorm: 087732 Tablet(s) PO take as directed 08/16/2018 09/05/2018 Inactive Relistor 150 mg tablet RxNorm: 3896351 3 Tablet(s) PO QD 08/16/2018 1 Inactive Zithromax Z-Aníbal 250 mg tablet RxNorm: 790969 Tablet(s) PO take as directed 08/16/2018 09/05/2018 Inactive cyclobenzaprine 10 mg tablet RxNorm: 499642 1 Tablet(s) PO TID as needed 08/16/2018 11/08/2018 Inactive Synthroid 88 mcg tablet RxNorm: 678984 1 Tablet(s) PO Q D NEEDS UPDATED LABS BEFORE FURTHER REFILLS 08/08/2018 08/19/2018 Inactive Premarin 0.45 mg tablet RxNorm: 485261 1 Tablet(s) PO QD 08/03/2018 0 01/31/2019 Inactive fluoxetine 20 mg capsule RxNorm: 552495 TAKE ONE CAPSULE BY BENOIT TH DAILY 08/03/2018 09/26/2018 Inactive Xtampza ER 36 mg capsule sprinkle RxNorm: 7994498 1 Capsule(s) P O BID 08/03/2018 09/01/2018 Inactive metformin ER 500 mg tablet,extended release 24 hr RxNorm: 86 0975 1 Tablet(s) PO QD 08/03/2018 10/31/2018 Inactive Symbicort 160 mcg-4.5 mcg/actuation HFA aerosol inhaler RxNo rm: 7701248 2 Puff(s) INH BID 08/03/2018 01/29/2019 Inactive Duragesic 100 mcg/hr transdermal patch RxNorm: 389690 2 Application TD Q48H for pain 07/29/2018 08/27/2018 Inactive ProAir HFA 90 mcg/actuation aerosol inhaler RxNorm: 587894 INHALE TWO PUFFS BY MOUTH EVERY 4 HOURS FOR WHEEZING OR SHORTNESS OF BREATH 07/27/201802/2018 Inactive Relistor 150 mg tablet RxNorm: 5307519 3 Tablet(s) PO QD 07/20/2018 0 08/15/2018 Inactive metformin ER 500 mg tablet,extended release 24 hr RxNorm: 86 0975 TAKE ONE TABLET BY MOUTH DAILY 07/08/2018 08/02/2018 Inactive fluoxetine 40 mg capsule RxNorm: 149160 TAKE ONE CAPSULE BY BENOIT TH EVERY MORNING 07/08/2018 10/05/2018 Inactive Xtampza ER 18 mg capsule sprinkle RxNorm: 8151574 1 Capsule(s) P O BID 07/08/2018 08/02/2018 Inactive Relistor 150 mg tablet RxNorm: 2168845 3 Tablet(s) PO QD 07/08/2018 0 07/12/2018 Inactive Synthroid 88 mcg tablet RxNorm: 477667 1 Tablet(s) PO Q D NEEDS UPDATED LABS BEFORE FURTHER REFILLS 06/23/2018 07/07/2018 Inactive fluoxetine 40 mg capsule RxNorm: 891371 TAKE ONE CAPSULE BY BENOIT TH EVERY MORNING 06/15/2018 09/26/2018 Inactive orphenadrine citrate ER 100 mg tablet,extended release RxNor m: 157538 TAKE ONE TABLET BY MOUTH TWICE A DAY FOR MUSCLE SPASM 06/15/2018 08/15/2018 [place] Duragesic 100 mcg/hr transdermal patch RxNorm: 290884 2 Application TD Q48H for pain 05/30/2018 06/28/2018 Inactive ProAir HFA 90 mcg/actuation aerosol inhaler RxNorm: 003787 INHALE TWO PUFFS BY MOUTH EVERY 4 HOURS FOR WHEEZING OR SHORTNESS OF BREATH 05/19/2018/0 03/2018 Inactive Chantix Continuing Month Box 1 mg tablet RxNorm: 344463 TAKE ONE TABLET BY MOUTH TWICE A DAY 05/19/2018 08/15/2018 Inactive oxycodone 10 mg tablet RxNorm: 6845500 1-2 Tablet(s) PO QID as n eeded for pain 05/19/2018 07/07/2018 Inactive gabapentin 300 mg capsule RxNorm: 431958 TAKE ONE CAPSULE BY MO UTH TWICE A DAY 05/18/2018 07/16/2018 Inactive ProAir HFA 90 mcg/actuation aerosol inhaler RxNorm: 872559 INHALE TWO PUFFS BY MOUTH EVERY 4 HOURS FOR WHEEZING OR SHORTNESS OF BREATH 05/04/201804/23 Inactive Augmentin 500 mg-125 mg tablet RxNorm: 859483 1 Tablet(s) PO BID 05/03/2018 Inactive oxycodone 10 mg tablet RxNorm: 0469287 1-2 Tablet(s) PO QID as n eeded for pain 04/21/2018 05/18/2018 Inactive Synthroid 88 mcg tablet RxNorm: 452808 1 Tablet(s) PO QD 04/15/2018 0 08/08/2018 Inactive Symbicort 160 mcg-4.5 mcg/actuation HFA aerosol inhaler RxNo rm: 5581552 2 Puff(s) INH BID 04/15/2018 04/10/2019 Inactive Premarin 0.45 mg tablet RxNorm: 341462 1 Tablet(s) PO QD 04/15/2018 0 08/03/2018 Inactive ProAir HFA 90 mcg/actuation aerosol inhaler RxNorm: 753790 2 Puff(s) INH Q4H prn for wheezing or shortness of breath 04/15/2018 05/03/2018 Inactive metformin ER 500 mg tablet,extended release 24 hr RxNorm: 86 0975 1 Tablet(s) PO QD 04/11/2018 07/07/2018 Inactive omeprazole 40 mg capsule,delayed release RxNorm: 303171 TAKE ONE CAPSULE BY MOUTH DAILY 04/10/2018 06/08/2018 Inactive Synthroid 88 mcg tablet RxNorm: 369696 1 Tablet(s) PO QD 04/04/2018 0 04/14/2018 Inactive Synthroid 88 mcg tablet RxNorm: 415609 1 Tablet(s) PO QD 04/04/2018 0 04/03/2018 Inactive orphenadrine citrate ER 100 mg tablet,extended release RxNor m: 363004 1 Tablet(s) PO BID for muscle spasm 04/04/2018 05/03/2018 Inactive metformin ER 500 mg tablet,extended release 24 hr RxNorm: 86 0975 1 Tablet(s) PO QD NEEDS UPDATED LABS 03/31/2018 04/11/2018 Inactive doxycycline hyclate 100 mg capsule RxNorm: 3363140 1 Capsule(s) PO BID 03/31/2018 04/09/2018 Inactive prednisone 20 mg tablet RxNorm: 521628 3 Tablet(s) PO T ID for 3 days then 1 po BID for 3 days then one daily for 3 days 03/31/2018 07/06/2018 Inactiv e Chantix Continuing Month Box 1 mg tablet RxNorm: 299182 TAKE ONE TABLET BY MOUTH TWICE A DAY 03/25/2018 03/30/2018 Inactive oxycodone 10 mg tablet RxNorm: 6536147 1-2 Tablet(s) PO QID as n eeded for pain 03/21/2018 04/20/2018 Inactive Daliresp 500 mcg tablet RxNorm: 2128334 1 Tablet(s) PO QD 03/15/2018 08/22/2018 Inactive metformin ER 500 mg tablet,extended release 24 hr RxNorm: 86 0975 1 Tablet(s) PO QD NEEDS UPDATED LABS 03/14/2018 03/31/2018 Inactive nystatin 100,000 unit/mL oral suspension RxNorm: 298602 5 [place]io liter(s) PO QID 03/02/2018 03/15/2018 Inactive nystatin 100,000 unit/mL oral suspension RxNorm: 693418 5 Chio liter(s) PO QID 03/02/2018 03/01/2018 Inactive oxycodone 10 mg tablet RxNorm: 1235683 1-2 Tablet(s) PO QID as n eeded for pain 02/16/2018 03/20/2018 Inactive fluoxetine 20 mg capsule RxNorm: 879366 1 Capsule(s) PO QD 02/15/20 18 08/02/2018 Inactive metformin ER 500 mg tablet,extended release 24 hr RxNorm: 86 0975 1 Tablet(s) PO QD Needs updated labs 02/14/2018 03/14/2018 Inactive cefdinir 300 mg capsule RxNorm: 470428 1 Capsule(s) PO BID 01/27/20 18 02/04/2018 Inactive orphenadrine citrate ER 100 mg tablet,extended release RxNor m: 273672 1 Tablet(s) PO BID for muscle spasm 01/26/2018 04/04/2018 Inactive gabapentin 300 mg capsule RxNorm: 743317 1 Capsule(s) PO BID 201704/17/2018 Inactive oxycodone 10 mg tablet RxNorm: 6435142 1-2 Tablet(s) PO QID as n eeded for pain 01/17/2018 02/15/2018 Inactive Duragesic 100 mcg/hr transdermal patch RxNorm: 499797 2 Application TD Q48H for pain 01/17/2018 02/15/2018 Inactive gabapentin 300 mg capsule RxNorm: 833662 TAKE ONE CAPSULE BY MO UTH TWICE A DAY 12/20/2017 01/18/2018 Inactive fluoxetine 40 mg capsule RxNorm: 404555 TAKE ONE CAPSULE BY BENOIT TH EVERY MORNING 12/15/2017 03/14/2018 Inactive OneTouch Ultra Test strips RxNorm: TEST DAILY 11/04/2017 02/01/2018 Inactive gabapentin 300 mg capsule RxNorm: 130388 1 Capsule(s) P O TID replaces BID dosing 10/26/2017 02/22/2018 Inactive oxycodone 10 mg tablet RxNorm: 3841823 1-2 Tablet(s) PO QID as n eeded for pain 10/18/2017 01/16/2018 Inactive Duragesic 100 mcg/hr transdermal patch RxNorm: 877033 2 Application TD Q48H for pain 10/18/2017 11/16/2017 Inactive gabapentin 300 mg capsule RxNorm: 602486 1 Capsule(s) PO BID 201610/25/2017 Inactive Abilify 5 mg tablet RxNorm: 554620 1 Tablet(s) PO QAM 09/23/201702/2017 Inactive gabapentin 300 mg capsule RxNorm: 167626 1 Capsule(s) PO BID 201610/17/2017 Inactive oxycodone 10 mg tablet RxNorm: 2194935 1-2 Tablet(s) PO QID as n eeded for pain 09/15/2017 10/17/2017 Inactive Duragesic 100 mcg/hr transdermal patch RxNorm: 874658 2 Application TD Q48H for pain 09/15/2017 10/14/2017 Inactive Duragesic 100 mcg/hr transdermal patch RxNorm: 593791 2 Application TD Q48H for pain 09/15/2017 10/24/2019 Inactive oxycodone 10 mg tablet RxNorm: 1831510 1-2 Tablet(s) PO QID as n eeded for pain 09/15/2017 08/15/2018 Inactive Daliresp 500 mcg tablet RxNorm: 7995419 1 Tablet(s) PO QD 09/06/2017 03/15/2018 Inactive Ventolin HFA 90 mcg/actuation aerosol inhaler RxNorm: 829283 2 Puff(s) INH Q4H as needed 09/02/2017 05/19/2018 Inactive oxycodone 10 mg tablet RxNorm: 5691345 1-2 Tablet(s) PO QID as n eeded for pain 08/17/2017 09/14/2017 Inactive Duragesic 100 mcg/hr transdermal patch RxNorm: 570117 2 Application TD Q48H for pain 08/17/2017 09/14/2017 Inactive fluoxetine 40 mg capsule RxNorm: 731509 Capsule(s) TAKE ONE CAPSULE BY MOUTH EVERY MORNING 08/17/2017 12/14/2017 Inactive Pulmicort 1 mg/2 mL suspension for nebulization RxNorm: 6168 19 1 Unit Dose INH BID Dx: COPD (J44.9) 08/16/2017 08/22/2018 Inactive gabapentin 300 mg capsule RxNorm: 343567 1 Capsule(s) PO QHS 201610/18/2017 Inactive fluoxetine 20 mg capsule RxNorm: 831999 1 Capsule(s) PO QD 08/12/20 17 02/14/2018 Inactive Abilify 2 mg tablet RxNorm: 674037 1 Tablet(s) PO QD TA KE ONE TABLET BY MOUTH DAILY 08/12/2017 10/25/2017 Inactive metformin ER 500 mg tablet,extended release 24 hr RxNorm: 86 0975 1 Tablet(s) PO QD 08/10/2017 02/14/2018 Inactive Synthroid 112 mcg tablet RxNorm: 654194 1 Tablet(s) PO QD 08/10/2017 04/15/2018 Inactive oxycodone 10 mg tablet RxNorm: 1581254 1-2 Tablet(s) PO QID as n eeded for pain 07/19/2017 08/16/2017 Inactive Duragesic 100 mcg/hr transdermal patch RxNorm: 950627 2 Application TD Q48H for pain 07/19/2017 08/16/2017 Inactive Ventolin HFA 90 mcg/actuation aerosol inhaler RxNorm: 043070 2 Puff(s) INH Q4H as needed 07/12/2017 09/02/2017 Inactive Abilify 2 mg tablet RxNorm: 001287 1 Tablet(s) PO QD TA KE ONE TABLET BY MOUTH DAILY 07/06/2017 08/11/2017 Inactive gabapentin 800 mg tablet RxNorm: 422680 1 Tablet(s) PO TID 06/22/20 17 07/05/2017 Inactive Chantix Starting Month Box 0.5 mg (11)-1 mg (42) table ts in dose pack RxNorm: 192166 TAKE BY MOUTH INSTRUCTED - PER PACKAGE INSTRUCTIONS 06/0707/04/2017 Inactive Ventolin HFA 90 mcg/actuation aerosol inhaler RxNorm: 096278 2 Puff(s) INH Q4H as needed 05/26/2017 07/12/2017 Inactive Duragesic 100 mcg/hr transdermal patch RxNorm: 177457 2 Application TD Q48H for pain 05/19/2017 06/17/2017 Inactive oxycodone 10 mg tablet RxNorm: 6835636 1-2 Tablet(s) PO QID as n eeded for pain 05/19/2017 07/18/2017 Inactive Abilify 2 mg tablet RxNorm: 303848 TAKE ONE TABLET BY MOUTH DAILY 0 05/10/2017 07/05/2017 Inactive Synthroid 112 mcg tablet RxNorm: 074028 1 Tablet(s) PO QD 05/06/2017 08/10/2017 Inactive metformin ER 500 mg tablet,extended release 24 hr RxNorm: 86 0975 1 Tablet(s) PO QD 05/06/2017 08/10/2017 Inactive Topamax 100 mg tablet RxNorm: 489251 1 Tablet(s) PO QHS 05/06/2017 Inactive Premarin 0.45 mg tablet RxNorm: 043288 1 Tablet(s) PO QD 05/06/2017 0 04/15/2018 Inactive orphenadrine citrate ER 100 mg tablet,extended release RxNor m: 027443 1 Tablet(s) PO TID for muscle spasm--replaces methocarbamol 04/29/2017 Inactive oxycodone 10 mg tablet RxNorm: 2279067 1-2 Tablet(s) PO QID as n eeded for pain 04/21/2017 05/18/2017 Inactive Duragesic 100 mcg/hr transdermal patch RxNorm: 316898 2 Application TD Q48H for pain 04/21/2017 05/18/2017 Inactive fluoxetine 40 mg capsule RxNorm: 027149 Capsule(s) TAKE ONE CAPSULE BY MOUTH EVERY MORNING 04/20/2017 08/17/2017 Inactive Ventolin HFA 90 mcg/actuation aerosol inhaler RxNorm: 571881 2 Puff(s) INH Q4H as needed 04/05/2017 05/26/2017 Inactive Symbicort 160 mcg-4.5 mcg/actuation HFA aerosol inhaler RxNo rm: 4772815 2 Puff(s) INH BID 03/30/2017 04/15/2018 Inactive Spiriva with HandiHaler 18 mcg and inhalation capsules RxNor m: 063086 1 Capsule(s) INH QD USING HANDIHALER 03/30/2017 02/12/2019 Inactive Duragesic 100 mcg/hr transdermal patch RxNorm: 880786 2 Application TD Q48H for pain 03/18/2017 04/16/2017 Inactive oxycodone 10 mg tablet RxNorm: 6091415 1-2 Tablet(s) PO QID as n eeded for pain 03/18/2017 04/20/2017 Inactive metformin ER 500 mg tablet,extended release 24 hr RxNorm: 86 0975 Tablet(s) TAKE ONE TABLET BY MOUTH DAILY 03/01/2017 05/06/2017 Inactive Premarin 0.45 mg tablet RxNorm: 953863 Tablet(s) TAKE ONE TABLE T BY MOUTH DAILY 03/01/2017 05/06/2017 Inactive Synthroid 112 mcg tablet RxNorm: 425849 Tablet(s) TAKE ONE TABLET BY MOUTH DAILY 03/01/2017 05/06/2017 Inactive Daliresp 500 mcg tablet RxNorm: 2990641 1 Tablet(s) PO QD 03/01/2017 09/06/2017 Inactive 16.2 mg-0.1037 mg-0.0194 mg tablet RxNorm: 9640351 Tablet(s) PO PRN for gas and cramping 02/23/2017 04/28/2017 Inactive TAKE TWO TABLET S BY MOUTH THREE TIMES A DAY NEEDED FOR GAS AND CRAMPING gabapentin 800 mg tablet RxNorm: 272674 1 Tablet(s) PO TID repl aces 600mg 02/23/2017 04/28/2017 Inactive Duragesic 100 mcg/hr transdermal patch RxNorm: 301021 2 Application TD Q48H for pain 02/17/2017 03/17/2017 Inactive fluoxetine 20 mg capsule RxNorm: 787220 1 Capsule(s) PO QD 02/18/20 17 08/12/2017 Inactive oxycodone 20 mg tablet RxNorm: 8654008 1 Tablet(s) PO QID as nee ded for pain 02/17/2017 03/17/2017 Inactive Ventolin HFA 90 mcg/actuation aerosol inhaler RxNorm: 221198 INHALE TWO PUFFS BY MOUTH EVERY 4 HOURS NEEDED 02/15/2017 04/05/2017 Inactive Silvadene 1 % topical cream RxNorm: 887441 1 Application TOP BI D to burn area 02/01/2017 09/22/2017 Inactive Topamax 100 mg tablet RxNorm: 250273 TAKE ONE TABLET BY MOUTH EVERY NIGHT AT BEDTIME 01/29/2017 05/06/2017 Inactive Chantix Starting Month Box 0.5 mg (11)-1 mg (42) table ts in dose pack RxNorm: 044365 Tablet(s) PO as directed 01/29/2017 06/01/2017 Inactive Abilify 2 mg tablet RxNorm: 153803 TAKE ONE TABLET BY MOUTH DAILY 0 01/26/2017 04/25/2017 Inactive Chantix Starting Month Box 0.5 mg (11)-1 mg (42) table ts in dose pack RxNorm: 865897 Tablet(s) PO as directed 01/20/2017 01/28/2017 Inactive gabapentin 600 mg tablet RxNorm: 589761 1 Tablet(s) PO TID 01/21/20 17 02/22/2017 Inactive Chantix Continuing Month Box 1 mg tablet RxNorm: 405359 1 Table t(s) PO BID 12/31/2016 06/01/2017 Inactive Spiriva with HandiHaler 18 mcg and inhalation capsules RxNor m: 634985 INHALE THE ENTIRE CONTENTS OF 1 CAPSULE ONCE A DAY USING HANDIHALER 12/31/201607/2017 Inactive Synthroid 112 mcg tablet RxNorm: 833082 TAKE ONE TABLET BY MOUT H DAILY 12/30/2016 03/01/2017 Inactive metformin ER 500 mg tablet,extended release 24 hr RxNorm: 86 0975 TAKE ONE TABLET BY MOUTH DAILY 12/30/2016 03/01/2017 Inactive Premarin 0.45 mg tablet RxNorm: 897216 TAKE ONE TABLET BY MOUTH DAILY 12/30/2016 03/01/2017 Inactive omeprazole 40 mg capsule,delayed release RxNorm: 703787 TAKE ONE CAPSULE BY MOUTH DAILY 12/30/2016 01/25/2018 Inactive Ventolin HFA 90 mcg/actuation aerosol inhaler RxNorm: 764044 INHALE TWO PUFFS BY MOUTH EVERY 4 HOURS NEEDED 12/28/2016 02/13/2017 Inactive fluoxetine 40 mg capsule RxNorm: 124004 TAKE ONE CAPSULE BY BENOIT TH EVERY MORNING 12/15/2016 04/20/2017 Inactive Chantix Continuing Month Box 1 mg tablet RxNorm: 751030 TAKE ONE TABLET BY MOUTH TWICE A DAY 12/04/2016 12/31/2016 Inactive doxycycline hyclate 100 mg capsule RxNorm: 5468359 1 Capsule(s) PO BID 12/01/2016 12/07/2016 Inactive Levaquin 750 mg tablet RxNorm: 901130 1 Tablet(s) PO QD 12/01/2016 Inactive Abilify 2 mg tablet RxNorm: 489447 TAKE ONE TABLET BY MOUTH DAILY 0 11/25/2016 11/30/2016 Inactive Ventolin HFA 90 mcg/actuation aerosol inhaler RxNorm: 985450 INHALE TWO PUFFS BY MOUTH EVERY 4 HOURS NEEDED 11/02/2016 12/19/2016 Inactive Chantix Continuing Month Box 1 mg tablet RxNorm: 754602 Tablet(s) PO as directed 10/30/2016 12/03/2016 Inactive Symbicort 160 mcg-4.5 mcg/actuation HFA aerosol inhaler RxNo rm: 5544467 INHALE TWO PUFFS TWO TIMES A DAY 10/30/2016 03/30/2017 Inactive Abilify 2 mg tablet RxNorm: 938060 1 Tablet(s) PO QD 10/27/201611/24 Inactive amoxicillin 500 mg capsule RxNorm: 846374 1 Capsule(s) PO TID 10/1410/23/2016 Inactive amoxicillin 500 mg capsule RxNorm: 202012 1 Capsule(s) PO TID 10/1410/13/2016 Inactive Synthroid 112 mcg tablet RxNorm: 727186 TAKE ONE TABLET BY MOUT H DAILY 09/28/2016 12/29/2016 Inactive Topamax 100 mg tablet RxNorm: 856692 TAKE ONE TABLET BY MOUTH EVERY NIGHT AT BEDTIME 09/28/2016 01/28/2017 Inactive Premarin 0.45 mg tablet RxNorm: 597121 TAKE ONE TABLET BY MOUTH DAILY 09/28/2016 12/29/2016 Inactive metformin ER 500 mg tablet,extended release 24 hr RxNorm: 86 0975 TAKE ONE TABLET BY MOUTH DAILY 09/28/2016 12/29/2016 Inactive Ventolin HFA 90 mcg/actuation aerosol inhaler RxNorm: 138306 INHALE TWO PUFFS BY MOUTH EVERY 4 HOURS NEEDED 09/22/2016 10/23/2016 Inactive Pulmicort 1 mg/2 mL suspension for nebulization RxNorm: 6168 19 1 Unit Dose INH BID Dx: COPD (J44.9) 09/10/2016 08/16/2017 Inactive Pulmicort 1 mg/2 mL suspension for nebulization RxNorm: 6168 19 1 Unit Dose INH BID 09/10/2016 09/09/2016 Inactive Brovana 15 mcg/2 mL solution for nebulization RxNorm: 369162 1 Unit Dose INH BID Dx: COPD (J44.9) 09/10/2016 01/25/2018 Inactive Brovana 15 mcg/2 mL solution for nebulization RxNorm: 089748 1 Unit Dose INH BID 09/10/2016 09/09/2016 Inactive ipratropium-albuterol 0.5 mg-3 mg(2.5 mg base)/3 mL ne bulization soln RxNorm: 0794571 1 Unit Dose INH Q4H as needed Dx: COPD (J44.9) 09/10/2016 0 02/12/2019 Inactive orphenadrine citrate ER 100 mg tablet,extended release RxNor m: 029482 1 Tablet(s) PO BID for muscle spasm--replaces methocarbamol 09/09/2016 Inactive Chantix Continuing Month Box 1 mg tablet RxNorm: 548731 Tablet(s) PO as directed 09/09/2016 10/30/2016 Inactive orphenadrine citrate ER 100 mg tablet,extended release RxNor m: 990707 1 Tablet(s) PO BID for muscle spasm 09/09/2016 09/08/2016 Inactive Spiriva with HandiHaler 18 mcg and inhalation capsules RxNor m: 007470 INHALE THE ENTIRE CONTENTS OF 1 CAPSULE ONCE A DAY USING HANDIHALER 09/01/201605/2017 Inactive Daliresp 500 mcg tablet RxNorm: 3080993 1 Tablet(s) PO QD 08/27/2016 03/01/2017 Inactive prednisone 20 mg tablet RxNorm: 877869 3 Tablet(s) PO T ID for 3 days then 1 po BID for 3 days then one daily for 3 days 08/26/2016 04/28/2017 Inactiv e Wellbutrin XL 300 mg 24 hr tablet, extended release RxNorm: 616618 TAKE ONE TABLET BY MOUTH EVERY MORNING 07/29/2016 10/26/2016 Inactive gabapentin 600 mg tablet RxNorm: 838656 1 Tablet(s) PO BID 06/26/20 16 12/22/2016 Inactive fluoxetine 40 mg capsule RxNorm: 543703 TAKE ONE CAPSULE BY BENOIT TH EVERY MORNING 06/24/2016 11/20/2016 Inactive Duragesic 100 mcg/hr transdermal patch RxNorm: 694932 2 Application TD Q48H for pain 06/05/2016 07/04/2016 Inactive oxycodone 10 mg tablet RxNorm: 7251872 1-2 Tablet(s) PO QID as n eeded for pain 06/05/2016 03/17/2017 Inactive Belladonna-Phenobarbital 48 mg tablet,extended release RxNor m: 2 Tablet(s) PO TID 06/05/2016 01/19/2017 Inactive Premarin 0.45 mg tablet RxNorm: 771209 TAKE ONE TABLET BY MOUTH DAILY 05/27/2016 09/23/2016 Inactive Topamax 100 mg tablet RxNorm: 376844 TAKE ONE TABLET BY MOUTH EVERY NIGHT AT BEDTIME 05/27/2016 09/27/2016 Inactive Synthroid 112 mcg tablet RxNorm: 090883 TAKE ONE TABLET BY MOUT H DAILY 05/27/2016 09/23/2016 Inactive metformin ER 500 mg tablet,extended release 24 hr RxNorm: 86 0975 TAKE ONE TABLET BY MOUTH DAILY 05/27/2016 09/23/2016 Inactive Symbicort 160 mcg-4.5 mcg/actuation HFA aerosol inhaler RxNo rm: 4885431 INHALE TWO PUFFS TWO TIMES A DAY 05/27/2016 10/23/2016 Inactive Ventolin HFA 90 mcg/actuation aerosol inhaler RxNorm: 810698 INHALE TWO PUFFS BY MOUTH EVERY 4 HOURS NEEDED 05/21/2016 07/07/2016 Inactive omeprazole 40 mg capsule,delayed release RxNorm: 134225 1 Capsu le(s) PO QD 05/06/2016 08/03/2016 Inactive metformin ER 500 mg tablet,extended release 24 hr RxNorm: 86 0975 TAKE ONE TABLET BY MOUTH DAILY 04/23/2016 05/22/2016 Inactive methocarbamol 750 mg tablet RxNorm: 051009 2 Tablet(s) PO TID as needed for muscle spasm 04/23/2016 09/08/2016 Inactive Synthroid 112 mcg tablet RxNorm: 203303 TAKE ONE TABLET BY MOUT H DAILY 04/23/2016 05/22/2016 Inactive Spiriva with HandiHaler 18 mcg and inhalation capsules RxNor m: 023669 INHALE THE ENTIRE CONTENTS OF 1 CAPSULE ONCE A DAY USING HANDIHALER 04/09/201608/2016 Inactive Diflucan 100 mg tablet RxNorm: 060460 1 Tablet(s) PO QD 04/08/2016 Inactive doxycycline hyclate 100 mg capsule RxNorm: 0023210 1 Capsule(s) PO BID 04/08/2016 04/17/2016 Inactive doxycycline hyclate 100 mg capsule RxNorm: 2036750 1 Capsule(s) PO BID 04/08/2016 04/07/2016 Inactive Diflucan 100 mg tablet RxNorm: 546672 1 Tablet(s) PO QD 04/08/2016 Inactive ondansetron HCl 4 mg tablet RxNorm: 862445 1 Tablet(s) PO Q4H as needed for nausea and vomiting 04/08/2016 09/22/2017 Inactive gabapentin 600 mg tablet RxNorm: 088784 TAKE ONE TABLET BY MOUT H TWICE A DAY 03/24/2016 06/25/2016 Inactive Synthroid 112 mcg tablet RxNorm: 806313 TAKE ONE TABLET BY MOUT H DAILY 02/25/2016 04/22/2016 Inactive Levaquin 500 mg tablet RxNorm: 253829 1 Tablet(s) PO QD 01/23/2016 Inactive prednisone 20 mg tablet RxNorm: 645160 1 Tablet(s) PO T ID for 3 days then 1 po BID for 3 days then one daily for 3 days 01/23/2016 08/25/2016 Inactiv e [employer] Ultra Test strips RxNorm: TEST BLOOD SUGAR ONCE DAILY 250.00 01/09/2016 11/04/2017 Inactive methocarbamol 750 mg tablet RxNorm: 890834 2 Tablet(s) PO TID as needed for muscle spasm 01/09/2016 04/23/2016 Inactive lactulose 10 gram/15 mL oral solution RxNorm: 409073 [address](s) PO QD 01/09/2016 09/22/2017 Inactive TAKE 1 TABLESPOON BY MOUTH ONCE DAILY metformin ER 500 mg tablet,extended release 24 hr RxNorm: 86 0975 1 Tablet(s) PO QD 12/26/2015 04/22/2016 Inactive fluoxetine 20 mg capsule RxNorm: 552013 1 Capsule(s) PO QD 12/23/19 16 06/19/2016 Inactive Premarin 0.45 mg tablet RxNorm: 823759 TAKE ONE TABLET BY MOUTH DAILY 12/23/2015 05/20/2016 Inactive fluoxetine 40 mg capsule RxNorm: 582557 1 Capsule(s) PO QD 12/23/19 16 06/19/2016 Inactive TAKE ONE CAPSULE BY MOUTH EV JANKI MORNING azithromycin 500 mg tablet RxNorm: 803344 1 Tablet(s) PO QD 016 12/19/2015 Inactive Zofran 4 mg tablet RxNorm: 757659 1 Tablet(s) PO Q4H prn nausea /vomiting 12/13/2015 03/30/2018 Inactive azithromycin 500 mg tablet RxNorm: 064578 1 Tablet(s) PO QD 016 12/12/2015 Inactive Duragesic 100 mcg/hr transdermal patch RxNorm: 925291 2 Application TD Q48H for pain 12/09/2015 01/07/2016 Inactive oxycodone 10 mg tablet RxNorm: 2204442 1-2 Tablet(s) PO QID as n eeded for pain 12/09/2015 06/04/2016 Inactive Bactroban 2 % topical cream RxNorm: 948298 Application TOP BID 11/2208/25/2016 Inactive doxycycline hyclate 100 mg capsule RxNorm: 9197409 1 Capsule(s) PO BID 12/03/2015 12/12/2015 Inactive Topamax 100 mg tablet RxNorm: 098861 TAKE ONE TABLET BY MOUTH EVERY NIGHT AT BEDTIME 11/25/2015 05/22/2016 Inactive Symbicort 160 mcg-4.5 mcg/actuation HFA aerosol inhaler RxNo rm: 7156484 INHALE TWO PUFFS TWO TIMES A DAY 11/25/2015 05/22/2016 Inactive Synthroid 112 mcg tablet RxNorm: 152055 Tablet(s) TAKE ONE TABLET BY MOUTH DAILY 11/25/2015 02/22/2016 Inactive omeprazole 40 mg capsule,delayed release RxNorm: 895814 1 Capsu le(s) PO QD 11/12/2015 05/05/2016 Inactive oxycodone 10 mg tablet RxNorm: 2326557 1-2 Tablet(s) PO QID as n eeded for pain 11/05/2015 12/08/2015 Inactive Duragesic 100 mcg/hr transdermal patch RxNorm: 455513 2 Application TD Q48H for pain 11/05/2015 12/04/2015 Inactive omeprazole 40 mg capsule,delayed release RxNorm: 818949 1 Capsu le(s) PO QD 10/07/2015 11/11/2015 Inactive Januvia 100 mg tablet RxNorm: 906794 TAKE ONE TABLET BY MOUTH DAILY 09/11/2015 12/25/2015 Inactive Zithromax 500 mg tablet RxNorm: 783049 1 Tablet(s) PO QD 09/10/2015 1 Inactive prednisone 20 mg tablet RxNorm: 657065 1 Tablet(s) PO T ID for 3 days then 1 po BID for 3 days then one daily for 3 days 09/10/2015 08/25/2016 Inactiv e Wellbutrin XL 300 mg 24 hr tablet, extended release RxNorm: 048571 1 Tablet(s) PO QAM 09/10/2015 12/02/2015 Inactive Topamax 100 mg tablet RxNorm: 442906 TAKE ONE TABLET BY MOUTH EVERY NIGHT AT BEDTIME 09/02/2015 11/24/2015 Inactive Synthroid 112 mcg tablet RxNorm: 441918 TAKE ONE TABLET BY MOUT H DAILY 09/02/2015 11/25/2015 Inactive methocarbamol 750 mg tablet RxNorm: 325404 2 Tablet(s) PO TID as needed for muscle spasm 08/15/2015 01/09/2016 Inactive Wellbutrin XL 150 mg 24 hr tablet, extended release RxNorm: 536606 TAKE ONE TABLET BY MOUTH EVERY MORNING 08/13/2015 08/13/2015 Inactive gabapentin 600 mg tablet RxNorm: 519444 1 Tablet(s) PO BID 08/13/20 15 02/08/2016 Inactive Wellbutrin XL 300 mg 24 hr tablet, extended release RxNorm: 413389 1 Tablet(s) PO QAM 08/06/2015 09/09/2015 Inactive Wellbutrin XL 150 mg 24 hr tablet, extended release RxNorm: 148143 1 Tablet(s) PO QAM 07/18/2015 08/05/2015 Inactive prednisone 20 mg tablet RxNorm: 614088 1 Tablet(s) PO BID 07/18/2015 07/22/2015 Inactive doxycycline hyclate 100 mg tablet,delayed release RxNorm: 43 4018 1 Tablet(s) PO BID 07/18/2015 07/27/2015 Inactive pravastatin 40 mg tablet RxNorm: 533753 1 Tablet(s) PO QD NEEDS FASTING LAB 07/15/2015 07/14/2015 Inactive pravastatin 40 mg tablet RxNorm: 455794 1 Tablet(s) PO QD NEEDS FASTING LAB 07/15/2015 01/25/2018 Inactive Ventolin HFA 90 mcg/actuation aerosol inhaler RxNorm: 027368 2 Puff(s) INH Q4H 07/08/2015 07/07/2015 Inactive prn Premarin 0.45 mg tablet RxNorm: 422128 1 Tablet(s) PO QD 07/01/2015 0 12/22/2015 Inactive pravastatin 40 mg tablet RxNorm: 713335 1 Tablet(s) PO QD NEEDS FASTING LAB 06/14/2015 07/15/2015 Inactive Ventolin HFA 90 mcg/actuation aerosol inhaler RxNorm: 6749609 2 Puff(s) INH Q4H 06/06/2015 07/08/2015 Inactive prn albuterol sulfate 2.5 mg/3 mL (0.083 %) solution for n ebulization RxNorm: 736159 1 Unit Dose INH QID 05/30/2015 No Stop Date Active Duragesic 100 mcg/hr transdermal patch RxNorm: 252556 2 Application TD Q48H for pain 04/29/2015 05/28/2015 Inactive gabapentin 600 mg tablet RxNorm: 059811 1 Tablet(s) PO BID 04/11/20 15 08/13/2015 Inactive Onglyza 5 mg tablet RxNorm: 677001 1 Tablet(s) PO QD for blood suga r 04/10/2015 04/15/2015 Inactive [Brand Copay Card: RxBIN:[id number] PCN:CRISTIANA RxGRP:[id number] ID#:[id number]] methocarbamol 750 mg tablet RxNorm: 365703 2 Tablet(s) PO TID as needed for muscle spasm 03/28/2015 08/15/2015 Inactive pravastatin 40 mg tablet RxNorm: 505032 1 Tablet(s) PO QD 03/19/2015 03/18/2015 Inactive pravastatin 40 mg tablet RxNorm: 836020 1 Tablet(s) PO QD 03/19/2015 06/14/2015 Inactive lactulose 10 gram/15 mL oral solution RxNorm: 567074 [address]s) PO QD 03/07/2015 01/09/2016 Inactive TAKE 1 TABLESPOON BY MOUTH ONCE DAILY oxycodone 20 mg tablet RxNorm: 5075796 1 Tablet(s) PO QID as nee ded for pain 03/05/2015 07/08/2015 Inactive Topamax 100 mg tablet RxNorm: 877879 1 Tablet(s) PO QHS TAKE ONE TABLET BY MOUTH AT BEDTIME 02/25/2015 02/12/2019 Inactive metformin ER 500 mg tablet,extended release 24 hr RxNorm: 86 0975 1 Tablet(s) PO QD 02/11/2015 03/04/2015 Inactive take one tablet by mouth every day Daliresp 500 mcg tablet RxNorm: 0086699 1 Tablet(s) PO QD 02/11/2015 08/09/2015 Inactive Endocet 10 mg-325 mg tablet RxNorm: 2848863 1 Tablet(s) PO Q4H as needed for pain 01/23/2015 01/23/2015 Inactive gabapentin 600 mg tablet RxNorm: 480065 1 Tablet(s) PO BID 01/23/20 15 04/11/2015 Inactive methocarbamol 750 mg tablet RxNorm: 999460 2 Tablet(s) PO TID as needed for muscle spasm 01/15/2015 02/13/2015 Inactive fluoxetine 40 mg capsule RxNorm: 210974 1 Capsule(s) PO QD 01/14/20 15 12/23/2015 Inactive TAKE ONE CAPSULE BY MOUTH EV JANKI MORNING fluoxetine 20 mg capsule RxNorm: 144431 1 Capsule(s) PO QD 01/14/20 15 12/23/2015 Inactive Premarin 0.45 mg tablet RxNorm: 957545 1 Tablet(s) PO QD 01/02/2015 0 07/01/2015 Inactive Endocet 10 mg-325 mg tablet RxNorm: 9675443 1-2 Tablet(s) PO Q4H 02/12/2019 Inactive PRN PAIN Duragesic 100 mcg/hr transdermal patch RxNorm: 544849 2 Application TD Q48H for pain 12/25/2014 01/23/2015 Inactive Topamax 100 mg tablet RxNorm: 703757 1 Tablet(s) PO QHS TAKE ONE TABLET BY MOUTH AT BEDTIME 12/25/2014 02/24/2015 Inactive Tudorza Pressair 400 mcg/actuation breath activated RxNorm: 9046704 1 BID INHALE ONE PUFF INTO LUNGS TWO TIMES A DAY 12/17/2014 05/15/2015 Inactive Endocet 10 mg-325 mg tablet RxNorm: 3897796 1-2 Tablet(s) PO Q4H 12/19/2014 Inactive PRN PAIN Duragesic 100 mcg/hr transdermal patch RxNorm: 018788 2 Application TD Q48H for pain 11/20/2014 12/24/2014 Inactive OneTouch Ultra Test strips RxNorm: TEST BLOOD SUGAR ONCE DAILY 250.00 11/16/2014 01/08/2016 Inactive omeprazole 40 mg capsule,delayed release RxNorm: 744221 1 Capsu le(s) PO QD 11/13/2014 11/12/2015 Inactive metformin ER 500 mg tablet,extended release 24 hr RxNorm: 86 0975 1 Tablet(s) PO QD 11/12/2014 02/11/2015 Inactive take one tablet by mouth every day Symbicort 160 mcg-4.5 mcg/actuation HFA aerosol inhaler RxNo rm: 3254816 2 Puff(s) INH BID 11/12/2014 03/11/2015 Inactive INHALE 2 PUFFS O RALLY TWO TIMES A DAY gabapentin 800 mg tablet RxNorm: 821802 1 Tablet(s) PO QD TAKE ONE TABLET BY MOUTH ONCE A DAY 10/22/2014 01/01/2015 Inactive Endocet 10 mg-325 mg tablet RxNorm: 7516544 1-2 Tablet(s) PO Q4H 11/15/2014 Inactive PRN PAIN Duragesic 100 mcg/hr transdermal patch RxNorm: 121323 2 Application TD Q48H for pain 10/17/2014 11/19/2014 Inactive gabapentin 800 mg tablet RxNorm: 014062 1 Tablet(s) PO QD TAKE ONE TABLET BY MOUTH ONCE A DAY 10/04/2014 10/21/2014 Inactive Premarin 0.9 mg tablet RxNorm: 126734 1 Tablet(s) PO QD TAKE ONE TABLET BY MOUTH ONCE A DAY 10/04/2014 01/01/2015 Inactive Spiriva with HandiHaler 18 mcg & inhalation capsules RxNorm: 600139 1 Capsule(s) INH QD 10/03/2014 04/30/2015 Inactive Levaquin 500 mg tablet RxNorm: 925128 1 Tablet(s) PO QD 10/03/2014 Inactive prednisone 20 mg tablet RxNorm: 869534 1 Tablet(s) PO QD 10/03/2014 1 12/09/2013 Inactive Duragesic 100 mcg/hr transdermal patch RxNorm: 120402 2 Application TD Q48H for pain 09/18/2014 10/16/2014 Inactive Endocet 10 mg-325 mg tablet RxNorm: 8888900 1-2 Tablet(s) PO Q4H 10/16/2014 Inactive PRN PAIN Synthroid 112 mcg tablet RxNorm: 035688 1 Tablet(s) QD 09/10/2014 Inactive Synthroid 112 mcg tablet RxNorm: 303705 TAKE ONE TABLET BY MOUTH ONE TIME A DAY. NEEDS LABS 09/10/2014 02/06/2015 Inactive omeprazole 40 mg capsule,delayed release RxNorm: 194409 1 Capsu le(s) PO QD 09/03/2014 11/13/2014 Inactive omeprazole 40 mg capsule,delayed release RxNorm: 551590 1 Capsu le(s) PO QD 09/03/2014 09/02/2014 Inactive Spiriva with HandiHaler 18 mcg & inhalation capsules RxNorm: 277916 1 Capsule(s) INH QD 08/27/2014 10/02/2014 Inactive gabapentin 600 mg tablet RxNorm: 598614 1 Tablet(s) PO BID 08/27/20 14 10/22/2014 Inactive Endocet 10 mg-325 mg tablet RxNorm: 6680247 1-2 Tablet(s) PO Q4H 09/17/2014 Inactive PRN PAIN fentanyl 100 mcg/hr transdermal patch RxNorm: 342303 1 Unit Dos e TD QD 08/21/2014 09/19/2014 Inactive Daliresp 500 mcg tablet RxNorm: 1190538 1 Tablet(s) PO QD 08/13/2014 02/11/2015 Inactive Synthroid 112 mcg tablet RxNorm: 652988 TAKE ONE TABLET BY MOUTH ONE TIME A DAY. NEEDS LABS 08/10/2014 09/10/2014 Inactive Endocet 10 mg-325 mg tablet RxNorm: 2087388 1-2 Tablet(s) PO Q4H 08/17/2014 Inactive PRN PAIN Duragesic 100 mcg/hr transdermal patch RxNorm: 099843 2 Application TD Q48H for pain 07/19/2014 09/17/2014 Inactive fluoxetine 40 mg capsule RxNorm: 092152 1 Capsule(s) PO QD 07/17/20 14 01/14/2015 Inactive TAKE ONE CAPSULE BY MOUTH EV JANKI MORNING fluoxetine 20 mg capsule RxNorm: 385922 1 Capsule(s) PO QD 07/17/20 14 01/14/2015 Inactive Spiriva with HandiHaler 18 mcg & inhalation capsules RxNorm: 747157 1 Capsule(s) INH QD 07/17/2014 08/26/2014 Inactive INHALE CONTENTS OF 1 CAPSULE(S) WITH HANDIHALER ONCE DAILY Zofran 4 mg tablet RxNorm: 691395 1 Tablet(s) PO Q4H prn nausea 07/25/2014 Inactive Synthroid 112 mcg tablet RxNorm: 943247 1 Tablet(s) PO QD 07/09/2014 07/09/2014 Inactive methocarbamol 750 mg tablet RxNorm: 958969 2 Tablet(s) PO TID as needed for muscle spasm 07/09/2014 09/06/2014 Inactive Synthroid 112 mcg tablet RxNorm: 962846 1 Tablet(s) PO QD - nee d labs 07/09/2014 08/07/2014 Inactive Medrol (Aníbal) 4 mg tablets in a dose pack RxNorm: 351994 6 Tablet(s) PO QD --then as directed 07/03/2014 07/08/2014 Inactive Tudorza Pressair 400 mcg/actuation breath activated RxNorm: 4423848 1 Puff(s) INH BID 07/03/2014 12/17/2014 Inactive cefdinir 300 mg capsule RxNorm: 823852 1 Capsule(s) PO BID 07/03/20 14 07/12/2014 Inactive Topamax 100 mg tablet RxNorm: 900863 Tablet(s) TAKE ONE TABLET BY MOUTH AT BEDTIME 07/02/2014 02/25/2015 Inactive Duragesic 100 mcg/hr transdermal patch RxNorm: 465833 2 Application TD Q48H for pain 06/25/2014 07/18/2014 Inactive Endocet 10 mg-325 mg tablet RxNorm: 9439617 1-2 Tablet(s) PO Q4H 07/18/2014 Inactive PRN PAIN metformin ER 500 mg tablet,extended release 24 hr RxNorm: 86 0975 1 Tablet(s) PO QD Needs labs 06/18/2014 07/01/2014 Inactive take one tablet by mouth every day Duragesic 100 mcg/hr transdermal patch RxNorm: 158679 2 Application TD Q48H for pain 05/22/2014 06/24/2014 Inactive Synthroid 112 mcg tablet RxNorm: 347645 1 Tablet(s) PO QD 05/22/2014 07/09/2014 Inactive Endocet 10 mg-325 mg tablet RxNorm: 1597101 1-2 Tablet(s) PO Q4H 06/20/2014 Inactive PRN PAIN Endocet 10 mg-325 mg tablet RxNorm: 1629397 1-2 Tablet(s) PO Q4H 05/21/2014 Inactive PRN PAIN Duragesic 100 mcg/hr transdermal patch RxNorm: 225225 2 Application TD Q48H for pain 04/25/2014 05/21/2014 Inactive Daliresp 500 mcg tablet RxNorm: 6985443 1 Tablet(s) PO QD 04/24/2014 08/13/2014 Inactive Symbicort 160 mcg-4.5 mcg/actuation HFA aerosol inhaler RxNo rm: 1866575 2 Puff(s) INH BID 04/24/2014 08/21/2014 Inactive INHALE 2 PUFFS O RALLY TWO TIMES A DAY metformin ER 500 mg tablet,extended release 24 hr RxNorm: 86 0975 1 Tablet(s) PO QD 04/24/2014 11/12/2014 Inactive TAKE ONE TABLET BY MOUTH EVERY DAY [AttnRPh:Saving Apply/Adjudicate RxGRP:LDMGRP RxBIN:[id number] RxPCN:2012 PCode:01 ID#:[id number]] Symbicort 160 mcg-4.5 mcg/actuation HFA aerosol inhaler RxNo rm: 1672993 2 Puff(s) INH BID 04/24/2014 11/12/2014 Inactive INHALE 2 PUFFS O RALLY TWO TIMES A DAY Premarin 0.9 mg tablet RxNorm: 382576 1 Tablet(s) PO QD 04/24/2014 Inactive TAKE ONE TABLET BY MOUTH EVERY DAY metformin ER 500 mg tablet,extended release 24 hr RxNorm: 86 0975 1 Tablet(s) PO QD Needs labs 04/24/2014 06/18/2014 Inactive TAKE ONE TABLET BY MOUTH EVERY DAY [AttnRPh:Saving Apply/Adjudicate RxGRP:LDMGRP RxBIN:[id number] RxPCN:2012 PCode: ID#:[id number]] gabapentin 800 mg tablet RxNorm: 513033 1 Tablet(s) PO QD 04/24/2014 10/04/2014 Inactive TAKE ONE TABLET BY MOUTH EVERY DAY Topamax 100 mg tablet RxNorm: 280721 1 Tablet(s) PO QHS 04/17/2014 Inactive Topamax 100 mg tablet RxNorm: 292039 TAKE ONE TABLET BY MOUTH A T BEDTIME 04/17/2014 07/01/2014 Inactive Tudorza Pressair 400 mcg/actuation breath activated RxNorm: 1681139 1 Puff(s) INH BID 04/11/2014 07/02/2014 Inactive Duragesic 100 mcg/hr transdermal patch RxNorm: 650074 2 Application TD Q48H for pain 03/27/2014 04/24/2014 Inactive Endocet 10 mg-325 mg tablet RxNorm: 6888263 1-2 Tablet(s) PO Q4H 04/24/2014 Inactive PRN PAIN Robaxin 750 mg tablet RxNorm: 032558 2 Tablet(s) PO TID as need ed for spasm 02/23/2014 03/28/2015 Inactive Duragesic 100 mcg/hr transdermal patch RxNorm: 158809 2 Application TD Q48H for pain 02/23/2014 No Stop Date Active Endocet 10 mg-325 mg tablet RxNorm: 0849385 1-2 Tablet(s) PO Q4H 03/23/2014 Inactive PRN PAIN Synthroid 112 mcg tablet RxNorm: 562915 1 Tablet(s) PO QD TAKE ONE TABLET BY MOUTH EVERY DAY 02/15/2014 05/22/2014 Inactive Zithromax 500 mg tablet RxNorm: 432926 1 Tablet(s) PO QD 01/30/2014 0 02/05/2014 Inactive Diflucan 100 mg tablet RxNorm: 600344 1 Tablet(s) PO QD 01/30/2014 Inactive prednisone 20 mg tablet RxNorm: 368350 1 Tablet(s) PO BID 01/30/2014 02/05/2014 Inactive fluoxetine 40 mg capsule RxNorm: 712183 1 Capsule(s) PO QD 01/23/20 14 07/16/2014 Inactive TAKE ONE CAPSULE BY MOUTH EV JANKI MORNING fluoxetine 40 mg capsule RxNorm: 033413 1 Capsule(s) PO QD 01/23/20 14 07/17/2014 Inactive TAKE ONE CAPSULE BY MOUTH EV JANKI MORNING cefdinir 300 mg capsule RxNorm: 469942 1 Capsule(s) PO BID 01/16/20 14 01/29/2014 Inactive Zithromax 500 mg tablet RxNorm: 781893 1 Tablet(s) PO QD 01/16/2014 0 01/22/2014 Inactive prednisone 20 mg tablet RxNorm: 028044 1 Tablet(s) PO BID 01/16/2014 01/22/2014 Inactive Spiriva with HandiHaler 18 mcg and inhalation capsules RxNor m: 860189 1 Capsule(s) INH QD 12/18/2013 07/17/2014 Inactive INHALE CONTENT S OF 1 CAPSULE(S) WITH HANDIHALER ONCE DAILY fluoxetine 20 mg capsule RxNorm: 791213 1 Capsule(s) PO QD 12/18/19 14 06/15/2014 Inactive Spiriva with HandiHaler 18 mcg & inhalation capsules RxNorm: 714993 1 Capsule(s) INH QD 12/18/2013 06/15/2014 Inactive INHALE CONTENTS OF 1 CAPSULE(S) WITH HANDIHALER ONCE DAILY fluoxetine 20 mg capsule RxNorm: 141301 1 Capsule(s) PO QD 12/18/19 14 07/17/2014 Inactive cefdinir 300 mg capsule RxNorm: 738299 2 Capsule(s) PO QD 12/12/2013 12/21/2013 Inactive Duragesic 100 mcg/hr transdermal patch RxNorm: 361886 2 Application TD Q48H for pain 12/08/2013 12/07/2013 Inactive Topamax 100 mg tablet RxNorm: 257173 1 Tablet(s) PO QHS 12/04/2013 Inactive Endocet 10 mg-325 mg tablet RxNorm: 5058816 1-2 Tablet(s) PO Q4H 12/26/2013 Inactive PRN PAIN Robaxin 750 mg tablet RxNorm: 134894 2 Tablet(s) PO TID as need ed for spasm 11/07/2013 01/05/2014 Inactive gabapentin 800 mg tablet RxNorm: 996640 1 Tablet(s) PO QD 10/16/2013 04/24/2014 Inactive TAKE ONE TABLET BY MOUTH EVERY DAY Symbicort 160 mcg-4.5 mcg/actuation HFA aerosol inhaler RxNo rm: 3558227 2 Puff(s) INH BID 10/16/2013 04/24/2014 Inactive INHALE 2 PUFFS O RALLY TWO TIMES A DAY Premarin 0.9 mg tablet RxNorm: 839110 1 Tablet(s) PO QD 10/16/2013 Inactive TAKE ONE TABLET BY MOUTH EVERY DAY metformin ER 500 mg tablet,extended release 24 hr RxNorm: 86 0975 1 Tablet(s) PO QD 10/16/2013 04/24/2014 Inactive TAKE ONE TABLET BY MOUTH EVERY DAY Daliresp 500 mcg tablet RxNorm: 2982585 1 Tablet(s) PO QD 10/16/2013 04/24/2014 Inactive Robaxin 750 mg tablet RxNorm: 612441 2 Tablet(s) PO TID as need ed for spasm 10/10/2013 11/06/2013 Inactive Duragesic 100 mcg/hr transdermal patch RxNorm: 457901 2 Application TD Q48H for pain 10/09/2013 No Stop Date Active Soma 350 mg tablet RxNorm: 558383 1 Tablet(s) PO TID 09/27/201310/09 Inactive TAKE ONE TABLET BY MOUTH THREE TIMES A D AY lactulose 10 gram/15 mL oral solution RxNorm: 904443 [address](s) PO QD 09/13/2013 03/07/2015 Inactive TAKE 1 TABLESPOON BY MOUTH ONCE DAILY Duragesic 100 mcg/hr transdermal patch RxNorm: 197429 2 Application TD Q48H for pain 09/06/2013 No Stop Date Active Endocet 10 mg-325 mg tablet RxNorm: 6189963 1-2 Tablet(s) PO Q4H 09/27/2013 Inactive PRN PAIN lancets 28 gauge RxNorm: Miscellaneous As needed for blo od glucose sticks 08/24/2013 No Stop Date Active 16.2 mg-0.1037 mg-0.0194 mg tablet RxNorm: 2283182 Tablet(s) PO PRN for gas and cramping 08/24/2013 01/19/2017 Inactive TAKE TWO TABLET S BY MOUTH THREE TIMES A DAY NEEDED FOR GAS AND CRAMPING Topamax 100 mg tablet RxNorm: 295794 1 Tablet(s) PO QHS 07/31/2013 Inactive Diflucan 100 mg tablet RxNorm: 828087 1 Tablet(s) PO QD 07/27/2013 Inactive cefdinir 300 mg capsule RxNorm: 809347 1 Capsule(s) PO BID 07/26/20 13 08/08/2013 Inactive Daliresp 500 mcg tablet RxNorm: 4716500 1 Tablet(s) PO QD 07/25/2013 10/15/2013 Inactive fluoxetine 40 mg capsule RxNorm: 126515 1 Capsule(s) PO QD 07/25/20 13 01/22/2014 Inactive TAKE ONE CAPSULE BY MOUTH EV JANKI MORNING Senokot-S 8.6 mg-50 mg tablet RxNorm: 4109824 1 Tablet(s) PO BID 10/25/2013 Inactive doxycycline hyclate 100 mg capsule RxNorm: 8060383 1 Capsule(s) PO BID 06/28/2013 07/07/2013 Inactive prednisone 20 mg tablet RxNorm: 061327 1 Tablet(s) PO BID 06/28/2013 07/04/2013 Inactive Zofran 4 mg tablet RxNorm: 807783 1 Tablet(s) PO Q4H prn nausea 03/201307/05/2013 Inactive Spiriva with HandiHaler 18 mcg & inhalation capsules RxNorm: 429895 1 Capsule(s) INH QD 06/26/2013 12/18/2013 Inactive INHALE CONTENTS OF 1 CAPSULE(S) WITH HANDIHALER ONCE DAILY Synthroid 112 mcg tablet RxNorm: 652265 1 Tablet(s) PO QD TAKE ONE TABLET BY MOUTH EVERY DAY 06/19/2013 02/15/2014 Inactive fluoxetine 20 mg capsule RxNorm: 488586 1 Capsule(s) PO QD 06/19/20 13 12/18/2013 Inactive Ventolin HFA 90 mcg/actuation Aerosol Inhaler RxNorm: 2601141 2 Puff(s) INH Q4H 06/05/2013 No Stop Date Active prn Soma 350 mg tablet RxNorm: 653028 1 Tablet(s) PO TID 06/05/201307/04 Inactive TAKE ONE TABLET BY MOUTH THREE TIMES A D AY prednisone 20 mg tablet RxNorm: 681567 1 Tablet(s) PO QD 05/31/2013 0 06/06/2013 Inactive Topamax 100 mg tablet RxNorm: 174070 1 Tablet(s) PO QHS 05/22/2013 Inactive Levaquin 500 mg tablet RxNorm: 628554 1 Tablet(s) PO QD 05/03/2013 Inactive Diflucan 100 mg tablet RxNorm: 958940 1 Tablet(s) PO QD 05/03/2013 Inactive Daliresp 500 mcg tablet RxNorm: 3795513 1 Tablet(s) PO QD 05/01/2013 07/24/2013 Inactive Daliresp 500 mcg tablet RxNorm: 4904484 1 Tablet(s) PO QD 05/01/2013 04/30/2013 Inactive gabapentin 800 mg tablet RxNorm: 464744 1 Tablet(s) PO QD 04/10/2013 10/06/2013 Inactive TAKE ONE TABLET BY MOUTH EVERY DAY metformin ER 500 mg tablet,extended release 24 hr RxNorm: 86 0977 1 Tablet(s) PO QD 04/10/2013 10/06/2013 Inactive TAKE ONE TABLET BY MOUTH EVERY DAY Premarin 0.9 mg tablet RxNorm: 813861 1 Tablet(s) PO QD 04/10/2013 Inactive TAKE ONE TABLET BY MOUTH EVERY DAY Symbicort 160 mcg-4.5 mcg/actuation HFA aerosol inhaler RxNo rm: 8560495 2 Puff(s) INH BID 04/10/2013 10/06/2013 Inactive INHALE 2 PUFFS O RALLY TWO TIMES A DAY Synthroid 112 mcg tablet RxNorm: 594807 1 Tablet(s) PO QD TAKE ONE TABLET BY MOUTH EVERY DAY 04/10/2013 06/18/2013 Inactive Ventolin HFA 90 mcg/actuation Aerosol Inhaler RxNorm: 221664 2 Puff(s) INH Q4H 04/10/2013 No Stop Date Active prn fentanyl 100 mcg/hr transdermal patch RxNorm: 118846 1 Unit Dos e TD QD 04/03/2013 05/02/2013 Inactive Endocet 10 mg-325 mg tablet RxNorm: 0245365 1-2 Tablet(s) PO Q4H 05/02/2013 Inactive PRN PAIN Topamax 100 mg tablet RxNorm: 762545 1 Tablet(s) PO QHS 03/13/2013 Inactive Reglan 10 mg tablet RxNorm: 993904 1 Tablet(s) PO QID b efore meals and at bedtime 03/13/2013 04/09/2015 Inactive fluoxetine 20 mg capsule RxNorm: 006144 1 Capsule(s) PO QD 02/28/20 13 05/27/2013 Inactive Ventolin HFA 90 mcg/actuation Aerosol Inhaler RxNorm: 259496 2 Puff(s) INH Q4H 02/13/2013 No Stop Date Active prn fluoxetine 40 mg capsule RxNorm: 229449 1 Capsule(s) PO QD 01/31/20 13 07/24/2013 Inactive TAKE ONE CAPSULE BY MOUTH EV JANKI MORNING Soma 350 mg tablet RxNorm: 919393 1 Tablet(s) PO TID 01/20/201302/18 Inactive TAKE ONE TABLET BY MOUTH THREE TIMES A D AY Endocet 10 mg-325 mg tablet RxNorm: 8097404 1-2 Tablet(s) PO Q4H 02/06/2013 Inactive PRN PAIN MS Contin 200 mg tablet,extended release RxNorm: 030566 1 Table t(s) PO BID 01/18/2013 02/06/2013 Inactive Ventolin HFA 90 mcg/actuation Aerosol Inhaler RxNorm: 755301 2 Puff(s) INH Q4H 01/04/2013 No Stop Date Active prn Spiriva with HandiHaler 18 mcg & inhalation capsules RxNorm: 955915 1 Capsule(s) INH QD 12/29/2012 06/25/2013 Inactive INHALE CONTENTS OF 1 CAPSULE(S) WITH HANDIHALER ONCE DAILY Spiriva with HandiHaler 18 mcg & inhalation capsules RxNorm: 514972 1 Capsule(s) INH QD 12/26/2012 12/28/2012 Inactive INHALE CONTENTS OF 1 CAPSULE(S) WITH HANDIHALER ONCE DAILY Synthroid 112 mcg tablet RxNorm: 547871 Tablet(s) PO TA KE ONE TABLET BY MOUTH EVERY DAY 12/26/2012 04/09/2013 Inactive Endocet 10 mg-325 mg tablet RxNorm: 0261952 1-2 Tablet(s) PO Q4H 01/17/2013 Inactive PRN PAIN MS Contin 200 mg tablet,extended release RxNorm: 501066 1 Table t(s) PO BID 12/21/2012 01/17/2013 Inactive fluoxetine 20 mg capsule RxNorm: 390032 1 Capsule(s) PO QD 12/06/19 13 02/26/2013 Inactive Synthroid 112 mcg tablet RxNorm: 849426 1 Tablet(s) PO QD 12/06/2012 02/12/2019 Inactive TAKE ONE TABLET BY MOUTH EVERY DAY Ventolin HFA 90 mcg/actuation Aerosol Inhaler RxNorm: 491686 2 Puff(s) INH Q4H 12/06/2012 No Stop Date Active prn Reglan 10 mg tablet RxNorm: 418248 1 Tablet(s) PO QID b efore meals and at bedtime 11/24/2012 03/12/2013 Inactive Topamax 100 mg tablet RxNorm: 979014 1 Tablet(s) PO QHS 11/16/2012 Inactive Ventolin HFA 90 mcg/actuation Aerosol Inhaler RxNorm: 470546 2 Puff(s) INH Q4H 11/09/2012 No Stop Date Active prn gabapentin 800 mg tablet RxNorm: 376791 1 Tablet(s) PO QD 10/27/2012 04/09/2013 Inactive TAKE ONE TABLET BY MOUTH EVERY DAY metformin ER 500 mg tablet,extended release 24 hr RxNorm: 86 0977 1 Tablet(s) PO QD 10/27/2012 04/09/2013 Inactive TAKE ONE TABLET BY MOUTH EVERY DAY Symbicort 160 mcg-4.5 mcg/actuation HFA Aerosol Inhaler RxNo rm: 4715978 2 Puff(s) INH BID 10/27/2012 04/09/2013 Inactive INHALE 2 PUFFS O RALLY TWO TIMES A DAY Premarin 0.9 mg tablet RxNorm: 715555 1 Tablet(s) PO QD 10/27/2012 Inactive TAKE ONE TABLET BY MOUTH EVERY DAY Endocet 10 mg-325 mg tablet RxNorm: 8662552 1-2 Tablet(s) PO Q4H 11/24/2012 Inactive PRN PAIN MS Contin 200 mg tablet,extended release RxNorm: 010061 1 Table t(s) PO BID 10/26/2012 11/24/2012 Inactive Soma 350 mg tablet RxNorm: 054063 1 Tablet(s) PO TID 10/04/201211/02 Inactive TAKE ONE TABLET BY MOUTH THREE TIMES A D AY Ventolin HFA 90 mcg/actuation Aerosol Inhaler RxNorm: 764807 2 Puff(s) INH Q4H 10/03/2012 No Stop Date Active prn Daliresp 500 mcg tablet RxNorm: 9730439 1 Tablet(s) PO QD 09/28/2012 09/27/2012 Inactive Daliresp 500 mcg tablet RxNorm: 4140512 1 Tablet(s) PO QD 09/28/2012 04/25/2013 Inactive fluoxetine 20 mg capsule RxNorm: 274030 1 Capsule(s) PO QD 09/05/20 12 12/06/2012 Inactive Topamax 50 mg tablet RxNorm: 819730 Tablet(s) PO for 1w k then 1 po q HS for 1wk then 2 po q HS 08/29/2012 09/27/2012 Inactive TAKE 1/2 TABLET BY MOUTH AT BEDTIME FOR 1 WEEK, THEN 1 TABLET AT BEDTIME FOR 1 WEEK, THEN 2 TABLETS AT BEDTIME Topamax 100 mg tablet RxNorm: 331277 1 Tablet(s) PO QHS 08/29/2012 Inactive Ventolin HFA 90 mcg/actuation Aerosol Inhaler RxNorm: 058634 2 Puff(s) INH Q4H 08/19/2012 No Stop Date Active prn Ventolin HFA 90 mcg/actuation Aerosol Inhaler RxNorm: 864203 2 Puff(s) INH Q4H 08/15/2012 No Stop Date Active prn Synthroid 112 mcg tablet RxNorm: 211534 1 Tablet(s) PO QD 08/10/2012 11/07/2012 Inactive TAKE ONE TABLET BY MOUTH EVERY DAY Synthroid 112 mcg tablet RxNorm: 547179 1 Tablet(s) PO QD 08/01/2012 08/09/2012 Inactive TAKE ONE TABLET BY MOUTH EVERY DAY Reglan 10 mg tablet RxNorm: 413600 1 Tablet(s) PO QID b efore meals and at bedtime 08/01/2012 11/23/2012 Inactive fluoxetine 40 mg capsule RxNorm: 141843 1 Capsule(s) PO QD 08/01/2001/27/2013 Inactive TAKE ONE CAPSULE BY MOUTH EV JANKI MORNING Ventolin HFA 90 mcg/actuation Aerosol Inhaler RxNorm: 193174 2 Puff(s) INH Q4H 08/01/2012 No Stop Date Active prn Soma 350 mg tablet RxNorm: 797676 1 Tablet(s) PO TID 07/20/201208/18 Inactive TAKE ONE TABLET BY MOUTH THREE TIMES A D AY Spiriva with HandiHaler 18 mcg & inhalation capsules RxNorm: 430862 1 Capsule(s) INH 07/01/2012 12/25/2012 Inactive INHALE CONTENTS OF 1 CAPSULE(S) WITH HANDIHALER ONCE DAILY Zithromax 250 mg Tab RxNorm: 036260 2 Tablet(s) PO QD 06/28/201206/22 Inactive MS Contin 200 mg tablet,extended release RxNorm: 150279 1 Table t(s) PO BID 06/28/2012 07/27/2012 Inactive Endocet 10 mg-325 mg tablet RxNorm: 9215379 1-2 Tablet(s) PO Q4H 07/27/2012 Inactive PRN PAIN Topamax 100 mg tablet RxNorm: 094020 1 Tablet(s) PO QHS 06/28/2012 Inactive 16.2 mg-0.1037 mg-0.0194 mg tablet RxNorm: 4533761 Tablet(s) PO PRN for gas and cramping 06/08/2012 08/23/2013 Inactive TAKE TWO TABLET S BY MOUTH THREE TIMES A DAY NEEDED FOR GAS AND CRAMPING Ventolin HFA 90 mcg/actuation Aerosol Inhaler RxNorm: 396379 2 Puff(s) INH Q4H 05/23/2012 No Stop Date Active prn Ventolin HFA 90 mcg/actuation Aerosol Inhaler RxNorm: 653015 2 Puff(s) INH Q4H 05/11/2012 No Stop Date Active prn Synthroid 112 mcg tablet RxNorm: 775071 1 Tablet(s) PO QD 05/09/2012 07/31/2012 Inactive TAKE ONE TABLET BY MOUTH EVERY DAY gabapentin 800 mg tablet RxNorm: 942859 1 Tablet(s) PO QD 05/09/2012 10/26/2012 Inactive TAKE ONE TABLET BY MOUTH EVERY DAY fluoxetine 40 mg capsule RxNorm: 244490 1 Capsule(s) PO QD 05/09/2007/31/2012 Inactive TAKE ONE CAPSULE BY MOUTH EV JANKI MORNING metformin ER 500 mg tablet,extended release 24 hr RxNorm: 86 0977 1 Tablet(s) PO QD 05/09/2012 10/26/2012 Inactive TAKE ONE TABLET BY MOUTH EVERY DAY Premarin 0.9 mg tablet RxNorm: 044851 1 Tablet(s) PO QD 05/09/2012 Inactive TAKE ONE TABLET BY MOUTH EVERY DAY Symbicort 160 mcg-4.5 mcg/actuation HFA Aerosol Inhaler RxNo rm: 8857642 2 Puff(s) INH BID 05/09/2012 10/26/2012 Inactive INHALE 2 PUFFS O RALLY TWO TIMES A DAY Endocet 10 mg-325 mg Tab RxNorm: 2236074 1-2 Tablet(s) PO Q4H 04/2705/26/2012 Inactive PRN PAIN MS Contin 200 mg Tab RxNorm: 324976 1 Tablet(s) PO BID 04/26/201202/2012 Inactive Ventolin HFA 90 mcg/actuation Aerosol Inhaler RxNorm: 899561 2 Puff(s) INH Q4H 04/25/2012 05/10/2012 Inactive prn Soma 350 mg tablet RxNorm: 494842 2 Tablet(s) PO TID 04/19/201207/19 Inactive TAKE ONE TABLET BY MOUTH THREE TIMES A D AY Ventolin HFA 90 mcg/actuation Aerosol Inhaler RxNorm: 190734 2 Puff(s) INH Q4H 04/12/2012 04/24/2012 Inactive prn Reglan 10 mg tablet RxNorm: 169708 1 Tablet(s) PO QID b efore meals and at bedtime 04/11/2012 07/31/2012 Inactive MS Contin 200 mg Tab RxNorm: 868152 1 Tablet(s) PO BID 03/30/201202/2012 Inactive Endocet 10 mg-325 mg Tab RxNorm: 0260302 1-2 Tablet(s) PO Q4H 03/3004/26/2012 Inactive PRN PAIN MS Contin 200 mg Tab RxNorm: 602576 1 Tablet(s) PO BID 03/02/201206/2012 Inactive Endocet 10 mg-325 mg Tab RxNorm: 7076708 1-2 Tablet(s) PO Q4H 03/0203/29/2012 Inactive PRN PAIN Daliresp 500 mcg tablet RxNorm: 4028627 1 Tablet(s) PO QD 03/01/2012 09/28/2012 Inactive MS Contin 200 mg Tab RxNorm: 575223 1 Tablet(s) PO BID 02/02/201208/2012 Inactive Endocet 10 mg-325 mg Tab RxNorm: 1454641 1-2 Tablet(s) PO Q4H 02/0103/01/2012 Inactive PRN PAIN fluoxetine 40 mg capsule RxNorm: 398271 1 Capsule(s) PO QD 02/02/2008/01/2012 Inactive TAKE ONE CAPSULE BY MOUTH EV JANKI MORNING Synthroid 112 mcg Tab RxNorm: 837635 1 Tablet(s) PO QD 01/18/2012 Inactive TAKE ONE TABLET BY MOUTH EVERY DAY lactulose 10 gram/15 mL oral solution RxNorm: 924615 [address]s) PO QD 01/18/2012 No Stop Date Active TAKE 1 TABLESPOON BY MOUTH ONCE DAILY Ventolin HFA 90 mcg/actuation Aerosol Inhaler RxNorm: 665059 2 Puff(s) INH Q4H 01/18/2012 04/11/2012 Inactive prn MS Contin 200 mg Tab RxNorm: 639030 1 Tablet(s) PO BID 01/05/201210/2012 Inactive Endocet 10 mg-325 mg Tab RxNorm: 6162917 1-2 Tablet(s) PO Q4H 01/0502/01/2012 Inactive PRN PAIN ProAir HFA 90 mcg/Actuation Aerosol Inhaler RxNorm: 226907 2 Pu ff(s) INH Q4H 12/21/2011 No Stop Date Active prn for wheezing or shortness of breath Spiriva with HandiHaler 18 mcg & inhalation Caps RxNorm: 580 261 1 Capsule(s) INH 12/21/2011 06/30/2012 Inactive INHALE CONTENTS OF 1 CAPSULE(S) WITH HANDIHALER ONCE DAILY Reglan 10 mg Tab RxNorm: 678611 1 Tablet(s) PO QID before meals and at bedtime 12/21/2011 04/10/2012 Inactive Synthroid 112 mcg Tab RxNorm: 584909 1 Tablet(s) PO QD 12/21/2011 Inactive TAKE ONE TABLET BY MOUTH EVERY DAY Endocet 10 mg-325 mg Tab RxNorm: 5577270 1-2 Tablet(s) PO Q4H 11/2512/24/2011 Inactive PRN PAIN MS Contin 200 mg Tab RxNorm: 540819 1 Tablet(s) PO BID 11/25/201112/2011 Inactive lactulose 10 gram/15 mL Oral Soln RxNorm: 849485 Milliliter(s) PO 1 No Stop Date Active TAKE 1 TABLESPOON BY MOUTH O NCE DAILY lactulose 10 gram/15 mL Oral Soln RxNorm: 577953 Milliliter(s) PO 1 12/12/2010 11/20/2011 Inactive TAKE 1 TABLESPOON BY MOUTH O NCE DAILY Premarin 0.9 mg Tab RxNorm: 872463 1 Tablet(s) PO QD 10/12/201105/08 Inactive TAKE ONE TABLET BY MOUTH EVERY DAY fluoxetine 20 mg capsule RxNorm: 709763 1 Capsule(s) PO QD 10/12/2009/05/2012 Inactive TAKE ONE CAPSULE BY MOUTH EV JANKI DAY Synthroid 112 mcg Tab RxNorm: 871219 1 Tablet(s) PO QD 10/12/2011 Inactive TAKE ONE TABLET BY MOUTH EVERY DAY metformin ER 500 mg 24 hr Tab RxNorm: 671084 1 Tablet(s) PO QD 09/2311/10/2011 Inactive TAKE ONE TABLET BY MOUTH GLYNN RY DAY Synthroid 112 mcg Tab RxNorm: 816752 1 Tablet(s) PO QD 10/12/2011 Inactive TAKE ONE TABLET BY MOUTH EVERY DAY metformin ER 500 mg 24 hr Tab RxNorm: 620231 1 Tablet(s) PO QD 09/2310/11/2011 Inactive TAKE ONE TABLET BY MOUTH GLYNN RY DAY Prevacid 30 mg Cap RxNorm: 280341 Capsule(s) PO 10/12/2011 01/25/2012 Inactive TAKE ONE CAPSULE BY MOUTH EVERY DAY Symbicort 160 mcg-4.5 mcg/actuation HFA Aerosol Inhaler RxNo rm: 2512837 2 Puff(s) INH BID 10/12/2011 05/08/2012 Inactive INHALE 2 PUFFS O RALLY TWO TIMES A DAY gabapentin 800 mg Tab RxNorm: 150611 1 Tablet(s) PO QD 10/12/2011 Inactive TAKE ONE TABLET BY MOUTH EVERY DAY MS Contin 200 mg Tab RxNorm: 781847 1 Tablet(s) PO BID 09/23/201111/2010 Inactive Endocet 10 mg-325 mg Tab RxNorm: 6292041 1-2 Tablet(s) PO Q4H 09/2310/22/2011 Inactive PRN PAIN Endocet 10 mg-325 mg Tab RxNorm: 7141423 1-2 Tablet(s) PO Q4H 08/2109/19/2011 Inactive PRN PAIN MS Contin 200 mg Tab RxNorm: 470962 1 Tablet(s) PO BID 08/21/2011 Inactive Diflucan 100 mg Tab RxNorm: 894492 1 Tablet(s) PO QD 08/10/201108/16 Inactive cefdinir 300 mg Cap RxNorm: 045037 2 Capsule(s) PO QD 08/10/201107/24 Inactive Reglan 10 mg Tab RxNorm: 698168 1 Tablet(s) PO AC & HS 07/15/2011 Inactive Endocet 10 mg-325 mg Tab RxNorm: 6223476 1-2 Tablet(s) PO Q4H 07/1508/13/2011 Inactive PRN PAIN One Touch Ultra Test strips RxNorm: Miscellaneous BID 06/11/2011 1 01/16/2014 Inactive TEST TWO TIMES A DAY lactulose 10 gram/15 mL Oral Soln RxNorm: 852588 Milliliter(s) PO 0 06/10/2011 10/11/2011 Inactive TAKE 1 TABLESPOON BY MOUTH O NCE DAILY Chantix Continuing Month Aníbal 1 mg Tab RxNorm: 591972 Tablet(s) PO 0 06/10/2011 11/02/2011 Inactive TAKE DIRECTED - PER [employer] INSTRUCTIONS fluoxetine 40 mg Cap RxNorm: 529945 Capsule(s) PO 06/10/2011 02/02/20 12 Inactive TAKE ONE CAPSULE BY MOUTH EVERY MORNING Chantix Continuing Month Aníbal 1 mg Tab RxNorm: 458793 Ta blet(s) PO TAKE DIRECTED - PER PACKAGE INSTRUCTIONS 05/13/2011 06/09/2011 Inactive Soma 350 mg Tab RxNorm: 291292 Tablet(s) PO TAKE ON E TABLET BY MOUTH THREE TIMES A DAY 05/13/2011 04/18/2012 Inactive Chantix Continuing Month Aníbal 1 mg Tab RxNorm: 841900 Ta blet(s) PO as directed per package instructions. 04/22/2011 05/12/2011 Inactive Symbicort 160 mcg-4.5 mcg/Actuation HFA Aerosol Inhaler RxNo rm: 5125951 HFA Aerosol Inhaler INH INHALE 2 PUFFS ORALLY TWO TIMES A DAY 04/13/2011 Inactive Synthroid 112 mcg Tab RxNorm: 834379 Tablet(s) PO TAKE ONE TABLET BY MOUTH EVERY DAY 04/13/2011 10/12/2011 Inactive Premarin 0.9 mg Tab RxNorm: 128152 Tablet(s) PO TAKE ON E TABLET BY MOUTH EVERY DAY 04/13/2011 10/12/2011 Inactive gabapentin 800 mg Tab RxNorm: 447570 Tablet(s) PO TAKE ONE TABLET BY MOUTH EVERY DAY 04/13/2011 10/12/2011 Inactive Prevacid 30 mg Cap RxNorm: 732553 1 Capsule(s) PO QD 04/13/201110/11 Inactive Spiriva with HandiHaler 18 mcg & inhalation Caps RxNorm: 580 261 Capsule(s) INH INHALE CONTENTS OF 1 CAPSULE(S) WITH HANDIHALER ONCE DAILY 04/13/2011 12/21/2011 Inactive metformin ER 500 mg 24 hr Tab RxNorm: 461519 Tablet(s) PO TAKE ONE TABLET BY MOUTH EVERY DAY 04/13/2011 10/12/2011 Inactive Soma 350 mg Tab RxNorm: 929735 1 Tablet(s) PO QID 03/30/2011 02/13/20 19 Inactive fluoxetine 20 mg Cap RxNorm: 314233 Capsule(s) PO TAKE ONE CAPSULE BY MOUTH EVERY DAY 03/25/2011 10/12/2011 Inactive cefdinir 300 mg Cap RxNorm: 422117 2 Capsule(s) PO QD 03/19/201105/2011 Inactive 16.2 mg-0.1037 mg-0.0194 mg Tab RxNorm: 3522267 2 Tablet(s) PO TID PRN for gas and cramping 03/16/2011 07/13/2011 Inactive Soma 350 mg Tab RxNorm: 547622 2 Tablet(s) PO TID 03/16/2011 03/29/20 11 Inactive Chantix Starting Month Aníbal 0.5 mg (11)-1 mg (3x14) Tab s in a Dose Pack RxNorm: 243340 Tablet(s) PO as directed 03/02/2011 No Stop Date Active diazepam 10 mg Tab RxNorm: 057481 1 Tablet(s) PO BID 02/10/201101/19 Inactive Zofran 4 mg tablet RxNorm: 257079 1 Tablet(s) PO Q4H prn nausea 02/16/2011 Inactive Diflucan 100 mg Tab RxNorm: 905957 1 Tablet(s) PO QD 01/18/201101/24 Inactive Premarin 0.625 mg/g Vaginal Cream RxNorm: 544874 VAG In sert 1gm vaginally at bedtime 3 times weekly 01/18/2011 02/12/2019 Inactive loratadine 10 mg Tab RxNorm: 5327044 1 Tablet(s) PO QD 12/17/201003/2012 Inactive Spiriva with HandiHaler 18 mcg & inhalation Caps RxNorm: 580 261 1 Capsule(s) INH QD 12/17/2010 04/12/2011 Inactive Diflucan 100 mg Tab RxNorm: 323846 1 Tablet(s) PO QD 12/17/201012/23 Inactive diazepam 10 mg Tab RxNorm: 237556 1 Tablet(s) PO BID and PRN 201002/12/2019 Inactive One Touch Ultra Test Strips RxNorm: InVt BID Zainab t blood sugar at least twice daily. 11/11/2010 06/11/2011 Inactive fluoxetine 40 mg Cap RxNorm: 014974 1 Capsule(s) PO QAM 11/11/2010 Inactive diazepam 10 mg Tab RxNorm: 276367 1 Tablet(s) PO BID and PRN 200911/12/2010 Inactive Bactrim DS 800 mg-160 mg Tab RxNorm: 165638 1 Tablet(s) PO BID 09/2210/15/2010 Inactive fluoxetine 20 mg Cap RxNorm: 764083 1 Capsule(s) PO QD 10/02/201008/2011 Inactive Bactrim DS 800 mg-160 mg Tab RxNorm: 755323 1 Tablet(s) PO BID 01/201010/03/2010 Inactive Zofran 4 mg Tab RxNorm: 791249 1 Tablet(s) PO Q4H prn nausea 200910/16/2010 Inactive 16.2 mg-0.1037 mg-0.0194 mg Tab RxNorm: 2802480 2 Tablet(s) PO TID PRN for gas and cramping 09/17/2010 10/21/2010 Inactive Gabapentin 800 mg Tab RxNorm: 799874 1 Tablet(s) PO QD 09/16/2010 Inactive ProAir HFA 90 mcg/Actuation Aerosol Inhaler RxNorm: 680036 2 Puff(s) INH Q4H prn shortness of breath 09/15/2010 12/13/2010 Inactive gabapentin 800 mg Tab RxNorm: 231708 1 Tablet(s) PO QD 09/15/2010 Inactive Prevacid 30 mg Cap RxNorm: 515606 1 Capsule(s) PO QD 09/15/201004/12 Inactive loratadine 10 mg Tab RxNorm: 8262697 1 Tablet(s) PO QD 09/15/2010 Inactive Premarin 0.9 mg Tab RxNorm: 945899 1 Tablet(s) PO QD 09/15/201004/12 Inactive Synthroid 112 mcg Tab RxNorm: 298526 1 Tablet(s) PO QD 09/15/2010 Inactive metformin ER 500 mg 24 hr Tab RxNorm: 829306 1 Tablet(s) PO QD 08/2304/12/2011 Inactive Symbicort 160 mcg-4.5 mcg/Actuation Inhalation HFA Aer osol Inhaler RxNorm: 4430694 2 Puff(s) INH BID 09/15/2010 04/12/2011 Inactive diazepam 10 mg Tab RxNorm: 131879 1 Tablet(s) PO BID and PRN 200910/13/2010 Inactive Phentermine 37.5 mg Cap RxNorm: 863007 1 Capsule(s) PO QD 09/02/2010 11/02/2011 Inactive ProAir HFA 90 mcg/Actuation Aerosol Inhaler RxNorm: 003229 2 Puff(s) INH Q4H prn shortness of breath 08/07/2010 No Stop Date Active Premarin 0.9 mg Tab RxNorm: 169005 1 Tablet(s) PO QD 08/07/201009/14 Inactive Loratadine 10 mg Tab RxNorm: 3528213 1 Tablet(s) PO QD 08/07/2010 Inactive Lactulose 10 gram/15 mL Oral Soln RxNorm: 854332 1 Unit Dose PO QD 08/07/2010 02/12/2019 Inactive Zofran 4 mg Tab RxNorm: 380930 1 Tablet(s) PO Q4H prn nausea 2009 No Stop Date Active Gabapentin 800 mg Tab RxNorm: 461419 1 Tablet(s) PO QD 08/07/2010 Inactive Synthroid 112 mcg Tab RxNorm: 465873 1 Tablet(s) PO QD 08/07/2010 Inactive Metformin ER 500 mg 24 hr Tab RxNorm: 980845 1 Tablet(s) PO QD 07/2309/14/2010 Inactive Vitamin D 1,000 unit Tab RxNorm: 128411 1 Tablet(s) PO TID 08/07/20 10 02/12/2019 Inactive Symbicort 160 mcg-4.5 mcg/Actuation Inhalation HFA Aer osol Inhaler RxNorm: 5026828 2 Puff(s) INH BID 08/07/2010 09/14/2010 Inactive Prevacid 30 mg Cap RxNorm: 055659 1 Capsule(s) PO QD 08/07/201009/14 Inactive Metformin ER 500 mg 24 hr Tab RxNorm: 939482 1 Tablet(s) PO QD 06/2308/06/2010 Inactive Vitamin D 1,000 unit Tab RxNorm: 138855 1 Tablet(s) PO TID 07/14/20 10 08/06/2010 Inactive Synthroid 112 mcg Tab RxNorm: 448130 1 Tablet(s) PO QD 07/14/2010 Inactive Lactulose 10 gram/15 mL Oral Soln RxNorm: 695170 1 Unit Dose PO QD 07/14/2010 08/06/2010 Inactive Levaquin 500 mg Tab RxNorm: 565193 1 Tablet(s) PO QD 07/14/201007/27 Inactive Premarin 0.9 mg Tab RxNorm: 467999 1 Tablet(s) PO QD 07/14/201008/06 Inactive ProAir HFA 90 mcg/Actuation Aerosol Inhaler RxNorm: 303630 2 Puff(s) INH Q4H prn shortness of breath 07/14/2010 No Stop Date Active Prevacid 30 mg Cap RxNorm: 168975 1 Capsule(s) PO QD 07/14/201008/06 Inactive Zofran 4 mg Tab RxNorm: 142481 1 Tablet(s) PO Q4H prn nausea 2009 No Stop Date Active Symbicort 160 mcg-4.5 mcg/Actuation Inhalation HFA Aer osol Inhaler RxNorm: 2112240 2 Puff(s) INH BID 07/14/2010 08/06/2010 Inactive Loratadine 10 mg Tab RxNorm: 7179781 1 Tablet(s) PO QD 07/14/2010 Inactive Gabapentin 800 mg Tab RxNorm: 834545 1 Tablet(s) PO QD 07/14/2010 Inactive Metformin ER 500 mg 24 hr Tab RxNorm: 893043 1 Tablet(s) PO 010 07/13/2010 Inactive Diazepam 10 mg Tab RxNorm: 266278 1 Tablet(s) PO BID and PRN 200909/06/2010 Inactive Premarin 0.9 mg Tab RxNorm: 928980 1 Tablet(s) PO QD 06/09/201007/13 Inactive Zofran 4 mg Tab RxNorm: 885846 1 Tablet(s) PO Q4H prn nausea 2009 No Stop Date Active ProAir HFA 90 mcg/Actuation Aerosol Inhaler RxNorm: 987114 2 Puff(s) INH Q4H prn shortness of breath 06/09/2010 No Stop Date Active Gabapentin 800 mg Tab RxNorm: 937896 1 Tablet(s) PO QD 06/09/2010 Inactive Loratadine 10 mg Tab RxNorm: 3188637 1 Tablet(s) PO QD 06/09/2010 Inactive Lactulose 10 gram/15 mL Oral Soln RxNorm: 036994 1 Unit Dose PO QD 06/09/2010 07/13/2010 Inactive Prevacid 30 mg Cap RxNorm: 402621 1 Capsule(s) PO QD 06/09/201007/13 Inactive Synthroid 112 mcg Tab RxNorm: 687088 1 Tablet(s) PO QD 06/09/2010 Inactive Symbicort 160 mcg-4.5 mcg/Actuation Inhalation HFA Aer osol Inhaler RxNorm: 8365198 2 Puff(s) INH BID 06/09/2010 07/13/2010 Inactive Omnicef 300 mg Cap RxNorm: 405316 2 Capsule(s) PO QD 05/07/201005/20 Inactive Metformin 500 mg Tab RxNorm: 732306 1 Tablet(s) PO QD 05/06/201005/22 Inactive ProAir HFA 90 mcg/Actuation Aerosol Inhaler RxNorm: 491164 2 Puff(s) INH Q4H prn shortness of breath 05/06/2010 No Stop Date Active lactulose 10 gram/15 mL Oral Soln RxNorm: 748309 1 Unit Dose PO QD 05/06/2010 06/10/2011 Inactive Loratadine 10 mg Tab RxNorm: 3839468 1 Tablet(s) PO QD 05/06/2010 Inactive Synthroid 112 mcg Tab RxNorm: 335523 1 Tablet(s) PO QD 05/06/2010 Inactive Symbicort 160 mcg-4.5 mcg/Actuation Inhalation HFA Aer osol Inhaler RxNorm: 2870991 2 Puff(s) INH BID 05/06/2010 06/08/2010 Inactive Gabapentin 800 mg Tab RxNorm: 500531 1 Tablet(s) PO QD 05/06/2010 Inactive 16.2 mg-0.1037 mg-0.0194 mg Tab RxNorm: 7915008 2 Tablet(s) PO TID PRN for gas and cramping 05/06/2010 05/12/2010 Inactive Zofran 4 mg Tab RxNorm: 136426 1 Tablet(s) PO Q4H prn nausea 200904/13/2010 Inactive MS Contin 60 mg Tab RxNorm: 753099 3 Tablet(s) PO BID 04/09/201004/22 Inactive Soma 350 mg Tab RxNorm: 097402 2 Tablet(s) PO TID 04/09/2010 05/08/20 Inactive Symbicort 160 mcg-4.5 mcg/Actuation Inhalation HFA Aer osol Inhaler RxNorm: 2712960 2 Puff(s) INH BID 04/08/2010 05/05/2010 Inactive Doxycycline 100 mg Cap RxNorm: 5343781 1 Capsule(s) PO BID 04/08/20 10 04/17/2010 Inactive Triamterene-Hydrochlorothiazide 37.5 mg-25 mg Cap RxNorm: 19 8316 1 Capsule(s) PO QAM 04/08/2010 09/04/2010 Inactive fluoxetine 40 mg Cap RxNorm: 222206 1 Capsule(s) PO QAM 04/08/2010 Inactive Morphine SR 120 mg multiphase 24 hr Cap RxNorm: 670092 1 Capsul e(s) PO 03/11/2010 04/07/2010 Inactive Endocet 10 mg-325 mg Tab RxNorm: 5469879 1-2 Tablet(s) PO Q4H OK N PAIN 03/11/2010 04/09/2010 Inactive Savella 100 mg Tab RxNorm: 722620 1 Tablet(s) PO BID 03/10/201004/09 Inactive Soma 350 mg Tab RxNorm: 537297 1 Tablet(s) PO TID prn spasm 010 04/09/2010 Inactive Savella 100 mg Tab RxNorm: 044895 1 Tablet(s) PO BID 02/03/201004/09 Inactive Aspirin 81 mg Tab RxNorm: 118269 1 Tablet(s) PO QD No Start Date Active Zyrtec 10 mg Tab RxNorm: 9549972 1 Tablet(s) PO QD No Start Date Active One Touch Ultra Test Strips RxNorm: Misc test at least t wice daily. No Start Date Active coenzyme Q10 200 mg capsule RxNorm: 576155 1 Capsule(s) PO QD No Star t Date Active One Touch Ultra Test Strips RxNorm: InVt BID Zainab t blood sugar at least twice daily. No Start Date 11/10/2010 Inactive Gabapentin 800 mg Tab RxNorm: 166652 1 Tablet(s) PO QD No Start Date 05/05/2010 Inactive Abilify 5 mg tablet RxNorm: 051780 1 Tablet(s) PO QD No Start Date Inactive Chantix 1 mg Tab RxNorm: 994804 1 Tablet(s) PO BID No Start Date 10/22 Inactive Ozempic 0.25 mg or 0.5 mg (2 mg/1.5 mL) subcutaneous p en injector RxNorm: 2432130 .25 Milligram(s) SQ QW No Start Date 07/04/2019 Inactive lancets 28 gauge RxNorm: Miscellaneous As needed for blo od glucose sticks No Start Date 08/23/2013 Inactive potassium chloride ER 20 mEq tablet,extended release RxNorm: 390340 2 Tablet(s) PO QD No Start Date 09/26/2018 Inactive Ventolin HFA 90 mcg/actuation Aerosol Inhaler RxNorm: 522497 2 Puff(s) INH Q4H prn No Start Date 01/17/2012 Inactive potassium chloride ER 20 mEq tablet,extended release RxNorm: 803970 2 Tablet(s) PO QD No Start Date 10/19/2018 Inactive Januvia 100 mg tablet RxNorm: 331446 1 Tablet(s) PO QD No Start Date 09/10/2015 Inactive Medrol (Aníbal) 4 mg Tabs in a Dose Pack RxNorm: 246662 Tablet(s) PO N o Start Date 08/09/2011 Inactive as directed Zithromax Z-Aníbal 250 mg Tab RxNorm: 920199 Tablet(s) PO No Start Date 01/25/2012 Inactive as directed vitamin B6-vitamin E-magnesium tablet RxNorm: 1 Tablet(s ) PO QHS with INH No Start Date 03/30/2018 Inactive prednisone 20 mg Tab RxNorm: 022170 1 Tablet(s) PO TID for 1wk then 1 po BID for 1wk No Start Date 01/25/2012 Inactive furosemide 40 mg tablet RxNorm: 896970 1 Tablet(s) PO QAM No Start Date 10/09/2018 Inactive Vitamin D3 1000 units Capsule RxNorm: 1 Capsule(s) PO TID No S tart Date 03/19/2015 Inactive Zofran 4 mg Tab RxNorm: 841719 1 Tablet(s) PO Q4H prn nausea No Sta rt Date 04/13/2010 Inactive Premarin 0.625 mg/g Vaginal Cream RxNorm: 556828 1 Gram (s) VAG QHS 3 times a week No Start Date 09/22/2017 Inactive oxycodone 10 mg tablet RxNorm: 3380668 1-2 Tablet(s) PO QID as n eeded for pain No Start Date 11/04/2015 Inactive Nicoderm CQ 21 mg/24 hr daily Patch RxNorm: 890355 1 Applicatio n TD QD No Start Date 08/05/2015 Inactive Topamax 50 mg tablet RxNorm: 997080 1/2 Tablet(s) PO QH S for 1wk then 1 po q HS for 1wk then 2 po q HS No Start Date 06/27/2012 Inactive Chantix Starting Month Aníbal 0.5 mg (11)-1 mg (3x14) Tab s in a Dose Pack RxNorm: 079613 Tablet(s) PO as directed No Start Date 03/01/2011 Inactive Trulicity 0.75 mg/0.5 mL subcutaneous pen injector RxNorm: 1 117402 Milliliter(s) SQ No Start Date 07/04/2019 Inactive Medrol (Aníbal) 4 mg Tabs in a Dose Pack RxNorm: 272636 Tablet(s) PO N o Start Date 01/25/2012 Inactive as directed Duragesic 100 mcg/hr Transderm Patch RxNorm: 196566 2 A pplication TD Q48H for pain No Start Date 09/05/2013 Inactive Premarin 0.9 mg Tab RxNorm: 184817 1 Tablet(s) PO QD No Start Date Inactive Zithromax Z-Aníbal 250 mg Tab RxNorm: 308277 Tablet(s) PO as direc chinmay No Start Date 01/25/2012 Inactive ondansetron 8 mg disintegrating tablet RxNorm: 432662 1 Tablet(s) PO Q6H as needed No Start Date 10/10/2018 Inactive oxycodone 15 mg tablet RxNorm: 4398041 1 Tablet(s) PO QID as nee ded for pain No Start Date 03/05/2019 Inactive ProAir HFA 90 mcg/Actuation Aerosol Inhaler RxNorm: 192137 2 Puff(s) INH Q4H prn for wheezing or shortness of breath No Start Date 12/21/2011 Inactive pravastatin 40 mg tablet RxNorm: 408867 1/2 Tablet(s) PO QOD No Sta rt Date 04/09/2015 Inactive ipratropium-albuterol 0.5 mg-3 mg(2.5 mg base)/3 mL ne bulization soln RxNorm: 6626273 1 Unit Dose INH Q4H as needed No Start Date 09/09/2016 Inactive furosemide 40 mg tablet RxNorm: 849997 1 Tablet(s) PO QAM as ne eded No Start Date 09/24/2019 Inactive Vitamin D2 oral RxNorm: 4018 oral No Start Date 03/18/2015 Inacti ve pravastatin 40 mg tablet RxNorm: 020834 1/2 Tablet(s) PO QD No Star t Date 04/09/2015 Inactive ondansetron HCl 4 mg tablet RxNorm: 964074 1 Tablet(s) PO Q4H as needed for nausea and vomiting No Start Date 04/07/2016 Inactive furosemide 40 mg tablet RxNorm: 080980 2 Tablet(s) PO QAM No Start Date 09/26/2018 Inactive gabapentin 800 mg tablet RxNorm: 949669 1/2 Tablet(s) PO BID No Sta rt Date 06/21/2017 Inactive gabapentin 800 mg tablet RxNorm: 644456 1/2 Tablet(s) PO BID No Sta rt Date 07/05/2017 Inactive ProAir HFA 90 mcg/Actuation Aerosol Inhaler RxNorm: 644335 2 Puff(s) INH Q4H prn shortness of breath No Start Date 05/05/2010 Inactive scopolamine 1 mg over 3 days transdermal patch RxNorm: 90583 2 1 Application TD behind ear. Take off after three days No Start Date 10/10/2018 Inactive Metformin 500 mg Tab RxNorm: 175514 1 Tablet(s) PO QD No Start Date 0 05/05/2010 Inactive MS Contin 200 mg Tab RxNorm: 633181 1 Tablet(s) PO BID No Start Date 08/20/2011 Inactive Belladonna-Phenobarbital 48 mg tablet,extended release RxNor m: 2 Tablet(s) PO TID No Start Date 06/04/2016 Inactive Synthroid 112 mcg Tab RxNorm: 824716 1 Tablet(s) PO QD No Start Date 05/05/2010 Inactive Zegerid 40 mg-1.1 gram Cap RxNorm: 782833 1 Capsule(s) PO QD No Sta rt Date 01/25/2012 Inactive Premarin 0.625 mg/g Vaginal Cream RxNorm: 008873 VAG In sert 1gm vaginally at bedtime 3 times weekly No Start Date 01/17/2011 Inactive potassium chloride ER 20 mEq tablet,extended release RxNorm: 681290 1 Tablet(s) PO QD No Start Date 04/24/2019 Inactive methocarbamol 750 mg tablet RxNorm: 711487 2 Tablet(s) PO TID as needed for muscle spasm No Start Date 07/08/2014 Inactive Biaxin XL Aníbal 500 mg 24 hr Tab RxNorm: 174577 Tablet(s) PO as d irected No Start Date 04/24/2013 Inactive Vitamin D3 1,000 unit tablet RxNorm: 899495 3 Tablet(s) PO QD No St art Date 06/01/2017 Inactive Morphine SR 120 mg multiphase 24 hr Cap RxNorm: 108220 1 Capsul e(s) PO BID No Start Date 04/09/2010 Inactive Silvadene 1 % topical cream RxNorm: 309864 1 Application TOP BI D to burn area No Start Date 01/31/2017 Inactive Prednisone 20 mg Tab RxNorm: 564280 1 Tablet(s) PO TID for 3days then BID for 4days No Start Date 01/25/2012 Inactive gabapentin 600 mg tablet RxNorm: 427046 1 Tablet(s) PO BID No Start Date 01/21/2015 Inactive topiramate 50 mg tablet RxNorm: 631068 1 Tablet(s) PO QHS No Start Date 03/30/2018 Inactive Januvia 100 mg tablet RxNorm: 020829 1/2 Tablet(s) PO QD No Start D ate 12/25/2015 Inactive Diazepam 10 mg Tab RxNorm: 216420 1 Tablet(s) PO BID and PRN No Sta rt Date 06/08/2010 Inactive Medication Administered No Medication Administered data Immunizations Vaccine Codes Date Status Influenza CVX: 141 09/28/2012 Pneumovax Unknown 09/28/2012 Influenza (Adult) CVX: 141 09/02/2010 Results No Results data Procedures Procedure Codes Date THER/PROPH/DIAG INJ SC/IM CPT-4: 69475 07/10/2019 METHYLPREDNISOLONE INJECTION CPT-4: J2930 07/10/2019 URINALYSIS NONAUTO W/O SCOPE CPT-4: 45215 09/06/2018 URINE CULTURE/ COLONY COUNT CPT-4: 36441 09/06/2018 DRAIN/INJECT JOINT/BURSA CPT-4: 37176 04/29/2017 TRIAMCINOLONE ACET INJ NOS CPT-4: J3301 04/29/2017 DEXAMETHASONE SODIUM PHOS CPT-4: J1100 04/29/2017 INFLUENZA ASSAY W/OPTIC CPT-4: 90196 12/01/2016 RESPIRATORY CULTURE & STAIN CPT-4: 37526 07/09/2016 TB INTRADERMAL TEST CPT-4: 31895 04/21/2016 DRAIN/INJECT JOINT/BURSA CPT-4: 18324 11/07/2013 METHYLPREDNISOLONE 40 MG INJ CPT-4: J1030 11/07/2013 TRIAMCINOLONE ACET INJ NOS CPT-4: J3301 11/07/2013 DRAIN/INJECT JOINT/BURSA CPT-4: 46665 08/08/2013 METHYLPREDNISOLONE 40 MG INJ CPT-4: J1030 08/08/2013 TRIAMCINOLONE ACET INJ NOS CPT-4: J3301 08/08/2013 FLU VACCINE 3 YRS & > IM UP 64 CPT-4: 65389 2 PNEUMOCOCCAL VACC 23 ADITYA IM CPT-4: 48997 09/28/2012 IMMUNIZATION ADMIN CPT-4: 11384 09/28/2012 IMMUNIZATION ADMIN EACH ADD CPT-4: 79754 09/28/2012 FLU VACCINE 3 YRS & > IM UP 64 CPT-4: 73820 0 IMMUNIZATION ADMIN CPT-4: 40660 09/02/2010 METHYLPREDNISOLONE INJECTION CPT-4: J2930 05/07/2010 THER/PROPH/DIAG INJ SC/IM CPT-4: 42805 05/07/2010 Vital Signs Date Vital 11/29/2019 Blood [...] 1: 122/78 Code: 8480-6 BMI: 29.5 Code: 24291-6 Heart Rate 1: 76 bpm Height: 5'4" Respiratory Rate: 20 bpm SpO2: 96% Tempera ture: 37.0 (C) / 98.6 (F) Weight: 172 lbs 01/25/2019 Blood Pressure 1: 132/80 Code: 8480-6 BMI: 29.7 Code: 97738-1 Heart Rate 1: 84 bpm Height: 5'4" Respiratory Rate: 22 bpm SpO2: 98% Tempera ture: 36.9 (C) / 98.4 (F) Weight: 173 lbs 01/03/2019 Blood Pressure 1: 116/70 Code: 8480-6 BMI: 29.5 Code: 36099-4 Heart Rate 1: 92 bpm Height: 5'4" Respiratory Rate: 24 bpm SpO2: 98% Tempera ture: 37.2 (C) / 98.9 (F) Weight: 172 lbs 11/21/2018 Blood Pressure 1: 146/82 Code: 8480-6 BMI: 28.2 Code: 09197-3 Heart Rate 1: 88 bpm Height: 5'4" Respiratory Rate: 22 bpm SpO2: 97% Tempera ture: 36.9 (C) / 98.4 (F) Weight: 164 lbs 10/27/2018 Blood Pressure 1: 122/70 Code: 8480-6 BMI: 27.6 Code: 57165-8 Heart Rate 1: 88 bpm Height: 5'4" Respiratory Rate: 20 bpm SpO2: 96% Tempera ture: 36.8 (C) / 98.3 (F) Weight: 161 lbs 10/18/2018 Blood Pressure 1: 126/70 Code: 8480-6 BMI: 28.3 Code: 02604-0 Heart Rate 1: 76 bpm Height: 5'4" Respiratory Rate: 20 bpm SpO2: 95% Tempera ture: 37.0 (C) / 98.6 (F) Weight: 165 lbs 09/27/2018 Blood Pressure 1: 124/78 Code: 8480-6 BMI: 27.1 Code: 35497-1 Heart Rate 1: 88 bpm Height: 5'4" Respiratory Rate: 20 bpm SpO2: 98% Tempera ture: 36.4 (C) / 97.6 (F) Weight: 158 lbs 09/14/2018 Blood Pressure 1: 140/72 Code: 8480-6 BMI: 26.1 Code: 75309-9 Heart Rate 1: 100 bpm Height: 5'4" Respiratory Rate: 20 bpm SpO2: 97% Tempera ture: 36.9 (C) / 98.4 (F) Weight: 152 lbs 09/06/2018 Blood Pressure 1: 156/82 Code: 8480-6 BMI: 26.3 Code: 29774-1 Heart Rate 1: 100 bpm Height: 5'4" Respiratory Rate: 28 bpm SpO2: 95% Tempera ture: 37.2 (C) / 98.9 (F) Weight: 153 lbs 08/16/2018 Blood Pressure 1: 130/78 Code: 8480-6 Heart Rate 1: 87 bpm Respiratory Rate: 24 bpm SpO2: 94% Temperature: 36.9 (C) / 98.4 (F) We ight: 147 lbs 8 oz 07/07/2018 Blood Pressure 1: 116/78 Code: 8480-6 BMI: 22.7 Code: 05705-7 Heart Rate 1: 88 bpm Height: 5'4" Respiratory Rate: 22 bpm SpO2: 98% Tempera ture: 36.5 (C) / 97.7 (F) Weight: 132 lbs 05/31/2018 Blood Pressure 1: 128/78 Code: 8480-6 BMI: 22.3 Code: 45679-4 Heart Rate 1: 92 bpm Height: 5'4" Respiratory Rate: 26 bpm SpO2: 94% Tempera ture: 36.7 (C) / 98.1 (F) Weight: 130 lbs 03/31/2018 Blood Pressure 1: 136/78 Code: 8480-6 BMI: 21.5 Code: 52345-0 Heart Rate 1: 76 bpm Height: 5'4" Respiratory Rate: 24 bpm SpO2: 95% Tempera ture: 36.8 (C) / 98.3 (F) Weight: 125 lbs 01/26/2018 Blood Pressure 1: 142/64 Code: 8480-6 BMI: 20.6 Code: 29111-5 Heart Rate 1: 90 bpm Height: 5'4" Respiratory Rate: 24 bpm SpO2: 92% Tempera ture: 36.3 (C) / 97.3 (F) Weight: 120 lbs 10/26/2017 Blood Pressure 1: 124/70 Code: 8480-6 BMI: 20.3 Code: 20116-7 Heart Rate 1: 76 bpm Height: 5'4" Respiratory Rate: 22 bpm SpO2: 94% Tempera ture: 36.7 (C) / 98.1 (F) Weight: 118 lbs 09/23/2017 Blood Pressure 1: 106/70 Code: 8480-6 BMI: 19.2 Code: 36224-6 Heart Rate 1: 76 bpm Height: 5'4" Respiratory Rate: 20 bpm SpO2: 94% Tempera ture: 36.8 (C) / 98.3 (F) Weight: 112 lbs 08/12/2017 Blood Pressure 1: 116/68 Code: 8480-6 BMI: 20.1 Code: 94734-1 Heart Rate 1: 80 bpm Height: 5'4" Respiratory Rate: 22 bpm SpO2: 95% Tempera ture: 36.8 (C) / 98.2 (F) Weight: 117 lbs 07/06/2017 Blood Pressure 1: 136/78 Code: 8480-6 BMI: 20.6 Code: 58409-7 Heart Rate 1: 76 bpm Height: 5'4" Respiratory Rate: 24 bpm SpO2: 96% Tempera ture: 36.8 (C) / 98.2 (F) Weight: 120 lbs 06/02/2017 Blood Pressure 1: 112/70 Code: 8480-6 Heart Rate 1: 92 bpm Height: 5'4" Respiratory Rate: 24 bpm SpO2: 95% Temperature: 37.0 (C) / 98.6 (F) Weight: 04/29/2017 Blood Pressure 1: 94/52 Code: 8480-6 BMI: 19.6 C ode: 87618-8 Heart Rate 1: 84 bpm Height: 5'4" [...] 92/58 Code: 8480-6 BMI: 19.2 C ode: 62630-6 Heart Rate 1: 84 bpm Height: 5'4" Respiratory Rate: 26 bpm SpO2: 95% Tempera ture: 36.7 (C) / 98.0 (F) Weight: 112 lbs 12/01/2016 Blood Pressure 1: 114/70 Code: 8480-6 BMI: 19.2 Code: 82819-0 Heart Rate 1: 96 bpm Height: 5'4" Respiratory Rate: 28 bpm SpO2: 93% Tempera ture: 38.3 (C) / 101.0 (F) Weight: 112 lbs 10/27/2016 Blood Pressure 1: 126/66 Code: 8480-6 BMI: 19.6 Code: 81514-5 Heart Rate 1: 92 bpm Height: 5'4" Respiratory Rate: 28 bpm SpO2: 90% Tempera ture: 36.8 (C) / 98.3 (F) Weight: 114 lbs 09/09/2016 Blood Pressure 1: 126/74 Code: 8480-6 Heart Rate 1: 104 bpm Height: 5'4" Respiratory Rate: 32 bpm SpO2: 88% Temperature: 37 .2 (C) / 99.0 (F) 08/26/2016 Blood Pressure 1: 134/82 Code: 8480-6 BMI: 22.0 Code: 31211-7 Heart Rate 1: 84 bpm Height: 5'4" Respiratory Rate: 24 bpm SpO2: 94% Tempera ture: 36.8 (C) / 98.3 (F) Weight: 128 lbs 05/21/2016 Blood Pressure 1: 142/80 Code: 8480-6 BMI: 21.6 Code: 50345-0 Heart Rate 1: 104 bpm Height: 5'4" Respiratory Rate: 22 bpm SpO2: 93% Tempera ture: 36.0 (C) / 96.8 (F) Weight: 126 lbs 03/25/2016 Blood Pressure 1: 126/62 Code: 8480-6 Heart Rate 1: 88 bpm Respiratory Rate: 20 bpm SpO2: 92% Temperature: 36.8 (C) / 98.3 (F) We ight: 130 lbs 01/23/2016 Blood Pressure 1: 146/82 Code: 8480-6 BMI: 24.1 Code: 11516-6 Heart Rate 1: 92 bpm Height: 5'3" Respiratory Rate: 22 bpm Temperature: 37 .1 (C) / 98.8 (F) Weight: 136 lbs 12/26/2015 Blood Pressure 1: 142/78 Code: 8480-6 BMI: 24.6 Code: 16130-7 Heart Rate 1: 78 bpm Height: 5'3" Respiratory Rate: 20 bpm Temperature: 36 .7 (C) / 98.1 (F) Weight: 139 lbs 12/03/2015 Blood Pressure 1: 126/60 Code: 8480-6 BMI: 24.6 Code: 86531-5 Heart Rate 1: 100 bpm Height: 5'3" Respiratory Rate: 28 bpm Temperature: 37 .6 (C) / 99.6 (F) Weight: 139 lbs 09/10/2015 Blood Pressure 1: 124/64 Code: 8480-6 BMI: 23.7 Code: 62502-4 Heart Rate 1: 88 bpm Height: 5'3" Respiratory Rate: 24 bpm SpO2: 95% Tempera ture: 36.4 (C) / 97.6 (F) Weight: 134 lbs 08/06/2015 Blood Pressure 1: 114/76 Code: 8480-6 BMI: 23.2 Code: 88491-3 Heart Rate 1: 88 bpm Height: 5'3" Respiratory Rate: 22 bpm Temperature: 36 .6 (C) / 97.9 (F) Weight: 131 lbs 07/18/2015 Blood Pressure 1: 144/78 Code: 8480-6 BMI: 23.7 Code: 19286-9 Heart Rate 1: 84 bpm Height: 5'3" Respiratory Rate: 20 bpm Temperature: 37 .2 (C) / 99.0 (F) Weight: 134 lbs 04/10/2015 Blood Pressure 1: 110/64 Code: 8480-6 Heart Rate 1: 80 bpm Height: Respiratory Rate: 20 bpm Temperature: 37.1 (C) / 98.8 (F) Weight: 03/05/2015 Blood Pressure 1: 136/80 Code: 8480-6 BMI: 23.9 Code: 48486-7 Heart Rate 1: 76 bpm Height: 5'3" Respiratory Rate: 24 bpm Temperature: 37 .0 (C) / 98.6 (F) Weight: 135 lbs 01/30/2015 Blood Pressure 1: 142/80 Code: 8480-6 BMI: 23.0 Code: 14520-3 Heart Rate 1: 96 bpm Height: 5'3" Respiratory Rate: 22 bpm Temperature: 36 .2 (C) / 97.2 (F) Weight: 130 lbs 01/02/2015 Blood Pressure 1: 124/70 Code: 8480-6 BMI: 23.4 Code: 43937-1 Heart Rate 1: 84 bpm Height: 5'3" Respiratory Rate: 24 bpm SpO2: 95% Tempera ture: 36.9 (C) / 98.5 (F) Weight: 132 lbs 10/03/2014 Blood Pressure 1: 106/68 Code: 8480-6 BMI: 22.5 Code: 51701-7 Heart Rate 1: 88 bpm Height: 5'3" Respiratory Rate: 24 bpm Temperature: 37 .0 (C) / 98.6 (F) Weight: 127 lbs 08/27/2014 Blood Pressure 1: 124/68 Code: 8480-6 BMI: 21.1 Code: 45427-8 Heart Rate 1: 88 bpm Height: 5'3" [...] 1: 120/70 Code: 8480-6 BMI: 19.2 Code: 16391-3 Heart Rate 1: 70 bpm Height: 5'4" Respiratory Rate: 20 bpm Temperature: 36 .9 (C) / 98.4 (F) Weight: 112 lbs 06/28/2013 Blood Pressure 1: 10268 Code: 8480-6 BMI: 19.6 Code: 35038-5 Heart Rate 1: 76 bpm Height: 5'4" Respiratory Rate: 20 bpm Temperature: 36 .8 (C) / 98.2 (F) Weight: 114 lbs 05/31/2013 Blood Pressure 1: 106/70 Code: 8480-6 BMI: 18.9 Code: 45179-4 Heart Rate 1: 100 bpm Height: 5'4" Respiratory Rate: 20 bpm Temperature: 36 .4 (C) / 97.6 (F) Weight: 110 lbs 05/03/2013 Blood Pressure 1: 126/70 Code: 8480-6 BMI: 19.1 Code: 92239-4 Heart Rate 1: 88 bpm Height: 5'4" Respiratory Rate: 20 bpm Temperature: 37 .1 (C) / 98.8 (F) Weight: 111 lbs 04/25/2013 Blood Pressure 1: 114/68 Code: 8480-6 BMI: 19.4 Code: 93223-1 Heart Rate 1: 92 bpm Height: 5'4" Respiratory Rate: 24 bpm SpO2: 96% Tempera ture: 37.7 (C) / 99.8 (F) Weight: 113 lbs 03/08/2013 Blood Pressure 1: 94/68 Code: 8480-6 BMI: 21.3 C ode: 28920-8 Heart Rate 1: 88 bpm Height: 5'4" Respiratory Rate: 24 bpm Temperature: 37 .0 (C) / 98.6 (F) Weight: 124 lbs 02/07/2013 Blood Pressure 1: 106/64 Code: 8480-6 BMI: 21.8 Code: 11184-9 Heart Rate 1: 84 bpm Height: 5'4" Respiratory Rate: 22 bpm Temperature: 36 .8 (C) / 98.2 (F) Weight: 127 lbs 01/10/2013 Blood Pressure 1: 122/68 Code: 8480-6 BMI: 21.6 Code: 09260-4 Heart Rate 1: 94 bpm Height: 5'4" SpO2: 94% Temperature: 36.7 (C) / 98.1 (F) Weight: 126 lbs 09/28/2012 Blood Pressure 1: 124/78 Code: 8480-6 BMI: 24.9 Code: 29437-9 Heart Rate 1: 92 bpm Height: 5'4" Respiratory Rate: 20 bpm Temperature: 36 .7 (C) / 98.1 (F) Weight: 145 lbs 06/28/2012 Blood Pressure 1: 134/80 Code: 8480-6 BMI: 24.9 Code: 25265-9 Heart Rate 1: 76 bpm Height: 5'4" Respiratory Rate: 20 bpm Temperature: 36 .8 (C) / 98.2 (F) Weight: 145 lbs 05/03/2012 Blood Pressure 1: 108/62 Code: 8480-6 BMI: 25.6 Code: 09671-6 Heart Rate 1: 88 bpm Height: 5'4" Temperature: 36.2 (C) / 97.2 (F) Weight: 149 lbs 03/01/2012 Blood Pressure 1: 124/66 Code: 8480-6 BMI: 25.1 Code: 03140-0 Heart Rate 1: 76 bpm Height: 5'4" Respiratory Rate: 20 bpm Temperature: 36 .6 (C) / 97.9 (F) Weight: 146 lbs 01/26/2012 Blood Pressure 1: 118/82 Code: 8480-6 BMI: 25.1 Code: 16530-1 Heart Rate 1: 74 bpm Height: 5'4" Temperature: 36.8 (C) / 98.2 (F)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 04/26/12: appt rescheduled from 04/26/12 by daughter [...] smoking cessation 03/01/2012 Appointment: Vika Renteria WPtel: [address] [place], [place] [phone] FOLLOW UP 03/01/2012 Patient Education: Patient Medication Summary Completed 03/01/2012 Visit Plan: Overnight pulse ox Smoking C essation Add Daliresp 500mg daily Hold Metformin 01/26/2012 Appointment: Vika Renteria WPtel: [address] [place], [place] [phone] FOLLOW UP 01/26/2012 Patient Education: Patient Medication Summary Completed 01/26/2012 Visit Plan: Discussed methotrexate trial , but do to chronic bronchitis pt wants to hold Smoking cessation Check CMP, CBC, TSH, Free T4, Lipids. ESR, ds DNA, JOVANNY Check EGD 11/03/2011 Appointment: Vika Renteria WPtel: [address] [place], [place] [phone] FOLLOW UP 11/03/2011 Patient Education: Patient Medication Summary Completed 11/03/2011 Appointment: Vika Renteria WPtel: [address] [place] [address] 08/10/2011 Patient Education: Patient Medication Summary Completed 08/10/2011 Visit Plan: Supportive care. Rest, Fluid s, Tylenol/Motrin prn fever or bodyaches. Notify if worsening symptoms. Medrol Dose Pack Smoking Cessation and recommend get rid of cat Add Reglan for stomach 07/15/2011 Appointment: Vika Renteria WPtel: [address] [place] [address] ACUTE ILLNESS 07/15/2011 Patient Education: Patient Medication Summary Completed 07/15/2011 Appointment: Vika Renteria WPtel: [address] [place] [address] FOLLOW UP 04/02/2011 Visit Plan: SVN with Albuterol 0.083% Q4 hrs and Q2hrs prn. Cont smoking Cessation 03/19/2011 Appointment: Vika Renteria WPtel: [address] [place] [address] ACUTE ILLNESS 03/19/2011 Patient Education: Patient Medication Summary Completed 03/19/2011 Visit Plan: Repeat Biaxin XL Cont curren t meds Repeat Chantix 01/28/2011 Appointment: Vika Renteria WPtel: [address] [place] [address] FOLLOW UP 01/28/2011 Patient Education: Patient Medication Summary Completed 01/28/2011 Patient Education: Chantix Unbranded Comp leted 01/28/2011 Appointment: Vika Renteria WPtel: [address] [place] [address] FOLLOW UP 01/14/2011 Visit Plan: Finish abx Diflucan for vagi nitis Premarin vaginal cream Smoking cessation 12/17/2010 Appointment: Vika Renteria WPtel: [address] [place] [address] Follow Up 12/17/2010 Patient Education: Patient Medication Summary Completed 12/17/2010 Appointment: Vika Renteriatel: [address] [place], [place] [phone] FOLLOW UP 11/06/2010 Visit Plan: Start PT Use SVNs every 4hrs Smoking Cessation Change MS Contin to 200mg q 12hrs 2010 Appointment: Vika Renteria WPtel: [address] [place], [place] [phone] FOLLOW UP 2010 Patient Education: Patient Medication Summary Completed 2010 Visit Plan: Prednisone taper for pain an d lungs 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 Increase fluoxetine to 60mg QD for acute stress reaction 10/02/2010 Appointment: Vika Renteriatel: [address] [place] [address] FOLLOW UP 10/02/2010 Patient Education: Patient Medication Summary Completed 10/02/2010 Visit Plan: Check CT Head, Cervical, Tho racic, and Lumbar Spine Cont current meds Bactrim for left toe 09/24/2010 Appointment: Vika Renteriatel: [address] [place], [place] [phone] CHECK UP 09/24/2010 Patient Education: Patient Medication Summary Completed 09/24/2010 Appointment: Vika Renteriatel: [address] [place], [place] [phone] FOLLOW UP 09/02/2010 Patient Education: Patient Medication Summary Completed 09/02/2010 Visit Plan: Return for 2nd epidural Obse rve right leg lesion Cont Symbicort and Spiriva 07/14/2010 Appointment: Vika Renteriatel: [address] [place], [place] [phone] FOLLOW UP 07/14/2010 Patient Education: Patient Medication Summary Completed 07/14/2010 Appointment: Vika Renteria WPtel: [address] [place], [place] [phone] FOLLOW UP 05/27/2010 Appointment: Vika Renteria WPtel: [address] [place], [place] [phone] [place] FOLLOW UP 05/14/2010 Visit Plan: SVN with Albuterol 0.083% Q4 hrs and Q2hrs prn. Restart Spiriva Smoking Cessation 05/07/2010 Appointment: Vika Renteria WPtel: [address] [place], [place] [phone] FOLLOW UP 05/07/2010 Patient Education: Patient Medication Summary Completed 05/07/2010 Appointment: Vika Renteria WPtel: [address] [place], [place] [phone] ACUTE ILLNESS 04/08/2010 Patient Education: Patient Medication Summary Completed 04/08/2010 Referral: Kyle Billings WPtel: [address] [address] [place] Referral Completed Referral: Jaylan Matute WPtel: [address] [place] [address] [address] [id number] [place] Referral Initiated Referral: Kyle Billings WPtel: [address] [address] [place] Referral Appointment Requested Instructions Comment . [...] prn breakthrough pain . Discussed that some [employer] ts are petroleum free If [...]
--- OUTSIDE RECORDS SUMMARY | 2020-04-24 22:24 | XMS REPORT | CCD ---
Author Author Yana Renteria D.O. 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 Name Role Phone Vika Renteria D.O., PP Unavailable CCM Unavailable Summary Purpose Interface Exchange Insurance Providers Payer name Policy type / Coverage type Covered republican ID Effective Begin Date Effective End Date [employer] [facility] [place] Medicaid [id number] 2018 U nknown Family History Family History data not found Social History Social History Element Codes Description Effective Dates Marital status Unknown 06/28/[address]: [id number] Currently smokes tobacco 05/2013 Allergies, Adverse Reactions, [...] Start Date Stop Date Status Fill Instructions hydroxyzine HCl 50 mg tablet RxNorm: 191835 1 Tablet(s) Oral two times a day to take with morphine--replaces benadryl 03/12/2020 04/11/2020 Active prednisone 1 mg tablet RxNorm: 518855 1 Tablet(s) Oral two times a day to take with hydroxyzine 03/12/2020 No Stop Date Active prednisolone 5 mg tablet RxNorm: 960018 1 Tablet(s) Oral two ti mes a day 02/22/2020 03/23/2020 Active prednisolone 5 mg tablet RxNorm: 500153 1 Tablet(s) Oral two ti mes a day 02/22/2020 02/21/2020 Inactive Symbicort 160 mcg-4.5 mcg/actuation HFA aerosol inhaler RxNo rm: [id number] INHALE TWO PUFFS BY MOUTH TWICE A DAY 02/19/2020 No Stop Date Active Daliresp 500 mcg tablet RxNorm: 1390520 TAKE ONE TABLET BY MOUTH DAILY 02/19/2020 No Stop Date Active prednisone 20 mg tablet RxNorm: 472852 1 Tablet(s) Oral two yumi es a day 02/13/2020 02/20/2020 Inactive oxycodone 30 mg tablet RxNorm: 4211111 1 Tablet(s) Oral four times a day replaces MS Contin 02/13/2020 02/22/2020 Inactive levothyroxine 25 mcg tablet RxNorm: 528031 TAKE ONE TAB LET BY MOUTH EVERY MORNING 02/09/2020 No Stop Date Active MS Contin 200 mg tablet,extended release RxNorm: 441356 1 Tablet(s) Oral two times a day 02/01/2020 03/01/2020 Inactive cyclobenzaprine 10 mg tablet RxNorm: 948258 TAKE ONE TA BLET BY MOUTH THREE TIMES A DAY NEEDED 01/31/2020 No Stop Date Active Premarin 0.45 mg tablet RxNorm: 755535 TAKE ONE TABLET BY MOUTH DAILY 01/31/2020 No Stop Date Active metformin 500 mg tablet RxNorm: 274853 1 Tablet(s) Oral QD 01/31/20 20 04/29/2020 Active gabapentin 300 mg capsule RxNorm: 194088 TAKE ONE CAPSULE BY [facility] TWICE A DAY 01/16/2020 No Stop Date Active potassium chloride ER 20 mEq tablet,extended release RxNorm: 612905 TAKE ONE TABLET BY MOUTH DAILY 01/08/2020 07/05/2020 Active ProAir HFA 90 mcg/actuation aerosol inhaler RxNorm: 022908 INHALE ONE PUFF BY MOUTH EVERY 4 HOURS FOR WHEEZING OR FOR SHORTNESS OF BREATH 01/04/2020 No Stop Date Active metformin 500 mg tablet RxNorm: 828325 1 Tablet(s) Oral QD 01/04/20 20 01/30/2020 Inactive MS Contin 200 mg tablet,extended release RxNorm: 792317 1 Tablet(s) Oral two times a day 01/02/2020 01/31/2020 Inactive Pulmicort 1 mg/2 mL suspension for nebulization RxNorm: 6168 19 USE ONE VIAL VIA NEBULIZER BY MOUTH TWICE A DAY 12/21/2019 No Stop Date Active furosemide 40 mg tablet RxNorm: 423782 TAKE ONE TABLET BY MOUTH EVERY MORNING NEEDED 12/20/2019 No Stop Date Active levothyroxine 25 mcg tablet RxNorm: 726332 TAKE ONE TAB LET BY MOUTH EVERY MORNING 12/20/2019 02/08/2020 Inactive MS Contin 200 mg tablet,extended release RxNorm: 562489 1 Tablet(s) Oral two times a day 12/05/2019 01/01/2020 Inactive Medrol (Aníbal) 4 mg tablets in a dose pack RxNorm: 990206 6 Tablet(s) Oral QD --then as directed 11/30/2019 12/05/2019 Inactive MS Contin 200 mg tablet,extended release RxNorm: 851005 1 Tablet(s) Oral two times a day 11/29/2019 12/04/2019 Inactive cyclobenzaprine 10 mg tablet RxNorm: 677128 TAKE ONE TA BLET BY MOUTH THREE TIMES A DAY NEEDED 11/21/2019 01/30/2020 Inactive MS Contin 200 mg tablet,extended release RxNorm: 312583 1 Tablet(s) Oral two times a day replaces 100mg dose 11/03/2019 11/02/2019 Inactive MS Contin 200 mg tablet,extended release RxNorm: 510301 1 Tablet(s) Oral two times a day replaces 100mg dose 11/03/2019 11/29/2019 Inactive ferrous sulfate 325 mg (65 mg iron) tablet RxNorm: 061485 1 Tab let(s) Oral QD 10/30/2019 No Stop Date Active MS Contin 100 mg tablet,extended release RxNorm: 565137 1 Table t(s) Oral QD 10/30/2019 10/29/2019 Inactive MS Contin 100 mg tablet,extended release RxNorm: 318995 1 Table t(s) Oral QD 10/30/2019 11/02/2019 Inactive Relistor 150 mg tablet RxNorm: 8255891 TAKE THREE TABLETS BY [facility] DAILY 10/25/2019 No Stop Date Active pantoprazole 40 mg tablet,delayed release RxNorm: 936822 1 Tabl et(s) Oral QD 10/25/2019 No Stop Date Active Minipress 2 mg capsule RxNorm: 114543 1 Capsule(s) Oral QAM and 3 at bedtime 10/25/2019 No Stop Date Active Lancets, Super Thin RxNorm: 1 Unit Dose Miscellaneous QD 9 11/27/2020 Active Cymbalta 60 mg capsule,delayed release RxNorm: 079269 1 Capsule (s) Oral QAM 10/25/2019 No Stop Date Active Cymbalta 30 mg capsule,delayed release RxNorm: 259028 1 Capsule (s) Oral QAM 10/25/2019 No Stop Date Active oxycodone 15 mg tablet RxNorm: 4470334 1 Tablet(s) Oral four times a day as needed for pain 10/25/2019 11/28/2019 Inactive metformin 500 mg tablet RxNorm: 691535 1 Tablet(s) Oral QD 10/25/20 19 01/03/2020 Inactive levothyroxine 25 mcg tablet RxNorm: 984128 1 Tablet(s) Oral QAM 02/201912/19/2019 Inactive levothyroxine 25 mcg tablet RxNorm: 080489 1 Tablet(s) Oral QAM 02/201910/24/2019 Inactive MS Contin 100 mg tablet,extended release RxNorm: 026356 1 Tablet(s) Oral two times a day replaces fentanyl 10/25/2019 10/25/2019 Inactive Premarin 0.45 mg tablet RxNorm: 376031 TAKE ONE TABLET BY MOUTH DAILY 10/24/2019 01/30/2020 Inactive Duragesic 100 mcg/hr transdermal patch RxNorm: 786037 2 Application TD Q48H for pain 10/18/2019 10/24/2019 Inactive gabapentin 300 mg capsule RxNorm: 107429 TAKE ONE CAPSULE BY MO UTH TWICE A DAY 10/16/2019 01/15/2020 Inactive cyclobenzaprine 10 mg tablet RxNorm: 197237 TAKE ONE TA BLET BY MOUTH THREE TIMES A DAY NEEDED 09/27/2019 11/20/2019 Inactive Relistor 150 mg tablet RxNorm: 6083358 TAKE THREE TABLETS BY [facility] DAILY 09/25/2019 10/24/2019 Inactive ProAir HFA 90 mcg/actuation aerosol inhaler RxNorm: 343448 INHALE ONE PUFF BY MOUTH EVERY 4 HOURS FOR WHEEZING OR FOR SHORTNESS OF BREATH 09/25/2019 01/03/2020 Inactive furosemide 40 mg tablet RxNorm: 788648 1 Tablet(s) Oral QAM as needed 09/25/2019 09/25/2019 Inactive oxycodone 15 mg tablet RxNorm: 9433388 1 Tablet(s) PO QID as nee ded for pain 09/21/2019 10/24/2019 Inactive Duragesic 100 mcg/hr transdermal patch RxNorm: 967404 2 Application TD Q48H for pain 09/19/2019 10/17/2019 Inactive Daliresp 500 mcg tablet RxNorm: 9959250 1 Tablet(s) Oral QD 019 02/18/2020 Inactive Relistor 150 mg tablet RxNorm: 0557925 TAKE THREE TABLETS BY [facility] DAILY 07/25/2019 07/30/2019 Inactive cyclobenzaprine 10 mg tablet RxNorm: 392269 TAKE ONE TA BLET BY MOUTH THREE TIMES A DAY NEEDED 07/25/2019 09/22/2019 Inactive potassium chloride ER 20 mEq tablet,extended release RxNorm: 372652 TAKE ONE TABLET BY MOUTH DAILY 07/25/2019 01/07/2020 Inactive fluoxetine 40 mg capsule RxNorm: 451646 TAKE ONE CAPSULE BY [facility]ENO[facility] EVERY MORNING 07/11/2019 10/24/2019 Inactive Medrol (Aníbal) 4 mg tablets in a dose pack RxNorm: 965366 6 Tablet(s) PO QD --then as directed 07/10/2019 07/15/2019 Inactive omeprazole 40 mg capsule,delayed release RxNorm: 046164 1 Capsule(s) PO QD for stomach TAKE ONE CAPSULE BY MOUTH DAILY 07/10/2019 10/24/2019 Inactive Augmentin 875 mg-125 mg tablet RxNorm: 513330 1 Tablet(s) PO BID 07/16/2019 Inactive Trulicity 0.75 mg/0.5 mL subcutaneous pen injector RxNorm: 1 368826 0.75 Milliliter(s) SQ weekly 07/05/2019 10/24/2019 Inactive Compazine 10 mg tablet RxNorm: 393072 TAKE ONE TABLET B Y MOUTH FOUR TIMES A DAY NEEDED FOR NAUSEA 06/20/2019 07/19/2019 Inactive ProAir HFA 90 mcg/actuation aerosol inhaler RxNorm: 382231 INHALE ONE PUFF BY MOUTH EVERY 4 HOURS FOR WHEEZING OR FOR SHORTNESS OF BREATH 06/20/2019 06/23/2019 Inactive Daliresp 500 mcg tablet RxNorm: 8667265 TAKE ONE TABLET BY MOUTH DAILY 06/12/2019 09/10/2019 Inactive coqdomfp-snyfqvouj-ggnlzloyo 3.5 mg/mL-10,000 unit/mL- 1 % ear solution RxNorm: 159910 4 Drop(s) otic (ear) TID to left ear 06/05/2019 10/24/2019 Inac tive furosemide 40 mg tablet RxNorm: 272260 TAKE ONE TABLET BY MOUTH EVERY MORNING 05/26/2019 07/09/2019 Inactive Duragesic 100 mcg/hr transdermal patch RxNorm: 671602 2 Application TD Q48H for pain 05/16/2019 06/14/2019 Inactive oxycodone 15 mg tablet RxNorm: 4503295 1 Tablet(s) PO QID as nee ded for pain 05/10/2019 09/20/2019 Inactive doxycycline hyclate 100 mg capsule RxNorm: 6881424 1 Capsule(s) PO BID 05/03/2019 05/12/2019 Inactive prednisone 20 mg tablet RxNorm: 597256 1 Tablet(s) PO T ID for 3 days then 1 po BID for 3 days then one daily for 3 days 05/03/2019 07/11/2019 Inactiv e Ozempic 0.25 mg or 0.5 mg (2 mg/1.5 mL) subcutaneous p en injector RxNorm: 2756487 0.5 Milligram(s) SQ QW 05/03/2019 07/09/2019 Inactive fluconazole 100 mg tablet RxNorm: 098645 1 Tablet(s) PO QD 05/03/2005/07/2019 Inactive Premarin 0.45 mg tablet RxNorm: 539856 TAKE ONE TABLET BY MOUTH DAILY 05/03/2019 10/23/2019 Inactive potassium chloride ER 20 mEq tablet,extended release RxNorm: 372602 1 Tablet(s) PO QD 04/27/2019 07/25/2019 Inactive potassium chloride ER 20 mEq tablet,extended release RxNorm: 955689 1 Tablet(s) PO QD 04/25/2019 04/26/2019 Inactive Compazine 10 mg tablet RxNorm: 471499 1 Tablet(s) PO QID as nee ded for nausea 04/25/2019 05/04/2019 Inactive ProAir HFA 90 mcg/actuation aerosol inhaler RxNorm: 836111 INHALE ONE PUFF BY MOUTH EVERY 4 HOURS FOR WHEEZING OR FOR SHORTNESS OF BREATH 04/12/2019 06/10/2019 Inactive Medrol (Aníbal) 4 mg tablets in a dose pack RxNorm: 319827 6 Tablet(s) PO QD --then as directed 04/11/2019 04/16/2019 Inactive Symbicort 160 mcg-4.5 mcg/actuation HFA aerosol inhaler RxNo rm: 0914337 2 Puff(s) INH BID 04/10/2019 10/06/2019 Inactive levothyroxine 50 mcg tablet RxNorm: 489322 1 Tablet(s) PO QD 201810/24/2019 Inactive gabapentin 300 mg capsule RxNorm: 969049 1 Capsule(s) PO BID 201810/02/2019 Inactive Symbicort 160 mcg-4.5 mcg/actuation HFA aerosol inhaler RxNo rm: 7988137 2 Puff(s) INH BID 04/06/2019 04/09/2019 Inactive oxycodone 15 mg tablet RxNorm: 9886991 1 Tablet(s) PO QID as nee ded for pain 04/05/2019 05/09/2019 Inactive levothyroxine 50 mcg tablet RxNorm: 757147 1 Tablet(s) PO QD 201804/09/2019 Inactive furosemide 40 mg tablet RxNorm: 990328 TAKE ONE TABLET BY MOUTH EVERY MORNING 03/21/2019 04/19/2019 Inactive levothyroxine 50 mcg tablet RxNorm: 776453 TAKE ONE TABLET BY M OUTH DAILY 03/21/2019 03/27/2019 Inactive Duragesic 100 mcg/hr transdermal patch RxNorm: 812255 2 Application TD Q48H for pain 03/13/2019 04/11/2019 Inactive oxycodone 15 mg tablet RxNorm: 7551051 1 Tablet(s) PO QID as nee ded for pain 03/06/2019 04/04/2019 Inactive Relistor 150 mg tablet RxNorm: 5700756 3 Tablet(s) PO QD 02/28/2019 0 05/28/2019 Inactive cyclobenzaprine 10 mg tablet RxNorm: 302170 1 Tablet(s) PO TID as needed 02/28/2019 05/28/2019 Inactive phentermine 37.5 mg tablet RxNorm: 651681 1 Tablet(s) PO QAM 201803/15/2019 Inactive Duragesic 100 mcg/hr transdermal patch RxNorm: 297071 2 Application TD Q48H for pain 02/09/2019 03/10/2019 Inactive Daliresp 500 mcg tablet RxNorm: 6264782 TAKE ONE TABLET BY MOUTH DAILY 01/31/2019 05/30/2019 Inactive Premarin 0.45 mg tablet RxNorm: 877017 1 Tablet(s) PO QD 01/31/2019 0 04/30/2019 Inactive fluoxetine 40 mg capsule RxNorm: 481840 Capsule(s) TAKE ONE CAPSULE BY MOUTH EVERY MORNING 01/31/2019 04/30/2019 Inactive levothyroxine 50 mcg tablet RxNorm: 371708 1 Tablet(s) PO QD 201804/10/2019 Inactive follow up in 3 weeks levothyroxine 50 mcg tablet RxNorm: 474946 1 Tablet(s) PO QD 201801/25/2019 Inactive follow up in 3 weeks potassium chloride ER 20 mEq tablet,extended release RxNorm: 996284 2 Tablet(s) PO BID 01/23/2019 01/08/2020 Inactive Synthroid 50 mcg tablet RxNorm: 518500 TAKE ONE TABLET BY MOUTH DAILY 01/16/2019 10/24/2019 Inactive potassium chloride ER 20 mEq tablet,extended release RxNorm: 589873 2 Tablet(s) PO BID 01/04/2019 01/22/2019 Inactive ProAir HFA 90 mcg/actuation aerosol inhaler RxNorm: 396648 INHALE ONE PUFF BY MOUTH EVERY 4 HOURS FOR WHEEZING OR SHORTNESS OF BREATH 01/04/201902/20 Inactive Request already responded to by other me ans (e.g. phone or fax) ProAir HFA 90 mcg/actuation aerosol inhaler RxNorm: 7923614 INHALE ONE PUFF BY MOUTH EVERY 4 HOURS FOR WHEEZING OR SHORTNESS OF BREATH 01/02/201912/23 Inactive gabapentin 300 mg capsule RxNorm: 878555 TAKE ONE CAPSULE BY MO UTH TWICE A DAY 12/30/2018 04/06/2019 Inactive furosemide 40 mg tablet RxNorm: 526848 1 Tablet(s) PO QAM 12/26/2018 02/23/2019 Inactive Compazine 10 mg tablet RxNorm: 478112 1 Tablet(s) PO QID as nee ded for nausea 12/07/2018 12/16/2018 Inactive metolazone 2.5 mg tablet RxNorm: 435536 TAKE ONE TABLET BY MOUT H EVERY MORNING 12/05/2018 01/03/2019 Inactive metformin ER 500 mg tablet,extended release 24 hr RxNorm: 86 0975 TAKE ONE TABLET BY MOUTH DAILY 12/05/2018 01/31/2020 Inactive Synthroid 50 mcg tablet RxNorm: 111721 1 Tablet(s) PO QD 11/25/2018 0 01/03/2019 Inactive DC any other synthroid strengths. Should be 50mcg only cyclobenzaprine 10 mg tablet RxNorm: 646044 TAKE ONE TA BLET BY MOUTH THREE TIMES A DAY NEEDED 11/09/2018 02/06/2019 Inactive metolazone 2.5 mg tablet RxNorm: 604291 1 Tablet(s) PO QAM repl aces 5mg dose 11/02/2018 12/01/2018 Inactive potassium chloride ER 20 mEq tablet,extended release RxNorm: 421197 2 Tablet(s) PO QD 2018 01/02/2019 Inactive Compazine 10 mg tablet RxNorm: 095087 1 Tablet(s) PO QID as nee ded for nausea 10/18/2018 12/07/2018 Inactive furosemide 40 mg tablet RxNorm: 107808 1 Tablet(s) PO QAM 10/12/2018 12/10/2018 Inactive ondansetron 8 mg disintegrating tablet RxNorm: 470241 1 Tablet(s) PO Q6H as needed 10/11/2018 10/17/2018 Inactive scopolamine 1 mg over 3 days transdermal patch RxNorm: 68394 2 1 Application TD behind ear. Take off after three days 10/11/2018 01/02/2019 Inactive furosemide 40 mg tablet RxNorm: 246472 1 Tablet(s) PO QAM 10/10/2018 12/26/2018 Inactive metolazone 5 mg tablet RxNorm: 562045 1 Tablet(s) PO QAM 10/06/2018 1 01/03/2018 Inactive metolazone 5 mg tablet RxNorm: 733799 1 Tablet(s) PO QAM 10/06/2018 1 12/05/2017 Inactive Xtampza ER 36 mg capsule sprinkle RxNorm: 6721104 1 Capsule(s) P O BID 10/05/2018 01/02/2019 Inactive Xtampza ER 36 mg capsule sprinkle RxNorm: 1132032 1 Capsule(s) P O BID 10/05/2018 02/12/2019 Inactive omeprazole 40 mg capsule,delayed release RxNorm: 620727 TAKE ONE CAPSULE BY MOUTH DAILY 10/03/2018 12/31/2018 Inactive Duragesic 100 mcg/hr transdermal patch RxNorm: 779000 2 Application TD Q48H for pain 09/30/2018 10/29/2018 Inactive Synthroid 50 mcg tablet RxNorm: 601623 1 Tablet(s) PO QD 09/29/2018 0 11/25/2018 Inactive DC any other synthroid strengths. Should be 50mcg only Synthroid 50 mcg tablet RxNorm: 702699 1 Tablet(s) PO QD 09/29/2018 1 11/28/2017 Inactive furosemide 40 mg tablet RxNorm: 294706 2 Tablet(s) PO Q AM for 1 week then every other day for 2 weeks 09/27/2018 10/12/2018 Inactive fluoxetine 40 mg capsule RxNorm: 468825 2 Capsule(s) PO QD 09/27/20 18 10/17/2018 Inactive potassium chloride ER 20 mEq tablet,extended release RxNorm: 212063 2 Tablet(s) PO QD for 1 week then every other day for 2 weeks 09/27/2018 2018 Inactive ProAir HFA 90 mcg/actuation aerosol inhaler RxNorm: 3896098 INHALE ONE PUFF BY MOUTH EVERY 4 HOURS FOR WHEEZING OR SHORTNESS OF BREATH 09/26/201811/23 Inactive Synthroid 75 mcg tablet RxNorm: 565726 1 Tablet(s) PO QD 09/09/2018 1 Inactive Synthroid 75 mcg tablet RxNorm: 754153 1 Tablet(s) PO QD 09/09/2018 1 11/28/2017 Inactive furosemide 40 mg tablet RxNorm: 226021 1 Tablet(s) PO QD 09/06/2018 1 Inactive potassium chloride ER 20 mEq tablet,extended release RxNorm: 269285 1 Tablet(s) PO QD 09/06/2018 09/19/2018 Inactive Duragesic 100 mcg/hr transdermal patch RxNorm: 459558 2 Application TD Q48H for pain 08/30/2018 09/28/2018 Inactive gabapentin 300 mg capsule RxNorm: 177446 TAKE ONE CAPSULE BY [facility] TWICE A DAY 08/23/2018 12/20/2018 Inactive Daliresp 500 mcg tablet RxNorm: 4610534 TAKE ONE TABLET BY MOUTH DAILY 08/23/2018 01/19/2019 Inactive Pulmicort 1 mg/2 mL suspension for nebulization RxNorm: 6168 19 USE ONE VIAL VIA NEBULIZER BY MOUTH TWICE A DAY 08/23/2018 07/11/2019 Inactive Synthroid 88 mcg tablet RxNorm: 411739 1 Tablet(s) PO QD 08/19/2018 1 Inactive Medrol (Aníbal) 4 mg tablets in a dose pack RxNorm: 130864 Tablet(s) PO take as directed 08/16/2018 09/05/2018 Inactive Relistor 150 mg tablet RxNorm: 1822044 3 Tablet(s) PO QD 08/16/2018 1 Inactive Zithromax Z-Aníbal 250 mg tablet RxNorm: 077833 Tablet(s) PO take as directed 08/16/2018 09/05/2018 Inactive cyclobenzaprine 10 mg tablet RxNorm: 109560 1 Tablet(s) PO TID as needed 08/16/2018 11/08/2018 Inactive Synthroid 88 mcg tablet RxNorm: 521810 1 Tablet(s) PO Q D NEEDS UPDATED LABS BEFORE FURTHER REFILLS 08/08/2018 08/19/2018 Inactive Premarin 0.45 mg tablet RxNorm: 216909 1 Tablet(s) PO QD 08/03/2018 0 01/31/2019 Inactive fluoxetine 20 mg capsule RxNorm: 885718 TAKE ONE CAPSULE BY [facility] TH DAILY 08/03/2018 09/26/2018 Inactive Xtampza ER 36 mg capsule sprinkle RxNorm: 6776209 1 Capsule(s) P O BID 08/03/2018 09/01/2018 Inactive metformin ER 500 mg tablet,extended release 24 hr RxNorm: 86 0975 1 Tablet(s) PO QD 08/03/2018 10/31/2018 Inactive Symbicort 160 mcg-4.5 mcg/actuation HFA aerosol inhaler RxNo rm: 6846309 2 Puff(s) INH BID 08/03/2018 01/29/2019 Inactive Duragesic 100 mcg/hr transdermal patch RxNorm: 164169 2 Application TD Q48H for pain 07/29/2018 08/27/2018 Inactive ProAir HFA 90 mcg/actuation aerosol inhaler RxNorm: 036868 INHALE TWO PUFFS BY MOUTH EVERY 4 HOURS FOR WHEEZING OR SHORTNESS OF BREATH 07/27/201802/2018 Inactive Relistor 150 mg tablet RxNorm: 4085937 3 Tablet(s) PO QD 07/20/2018 0 08/15/2018 Inactive metformin ER 500 mg tablet,extended release 24 hr RxNorm: 86 0975 TAKE ONE TABLET BY MOUTH DAILY 07/08/2018 08/02/2018 Inactive fluoxetine 40 mg capsule RxNorm: 785727 TAKE ONE CAPSULE BY [facility] TH EVERY MORNING 07/08/2018 10/05/2018 Inactive Xtampza ER 18 mg capsule sprinkle RxNorm: 2016309 1 Capsule(s) P O BID 07/08/2018 08/02/2018 Inactive Relistor 150 mg tablet RxNorm: 6963913 3 Tablet(s) PO QD 07/08/2018 0 07/12/2018 Inactive Synthroid 88 mcg tablet RxNorm: 500148 1 Tablet(s) PO Q D NEEDS UPDATED LABS BEFORE FURTHER REFILLS 06/23/2018 07/07/2018 Inactive fluoxetine 40 mg capsule RxNorm: 161176 TAKE ONE CAPSULE BY BENOIT TH EVERY MORNING 06/15/2018 09/26/2018 Inactive orphenadrine citrate ER 100 mg tablet,extended release RxNor m: 068076 TAKE ONE TABLET BY MOUTH TWICE A DAY FOR MUSCLE SPASM 06/15/2018 08/15/2018 Doyline ctive Duragesic 100 mcg/hr transdermal patch RxNorm: 617811 2 Application TD Q48H for pain 05/30/2018 06/28/2018 Inactive ProAir HFA 90 mcg/actuation aerosol inhaler RxNorm: 048701 INHALE TWO PUFFS BY MOUTH EVERY 4 HOURS FOR WHEEZING OR SHORTNESS OF BREATH 05/19/201803/2018 Inactive Chantix Continuing Month Box 1 mg tablet RxNorm: 520596 TAKE ONE TABLET BY MOUTH TWICE A DAY 05/19/2018 08/15/2018 Inactive oxycodone 10 mg tablet RxNorm: 8640013 1-2 Tablet(s) PO QID as n eeded for pain 05/19/2018 07/07/2018 Inactive gabapentin 300 mg capsule RxNorm: 083779 TAKE ONE CAPSULE BY MO UTH TWICE A DAY 05/18/2018 07/16/2018 Inactive ProAir HFA 90 mcg/actuation aerosol inhaler RxNorm: 364755 INHALE TWO PUFFS BY MOUTH EVERY 4 HOURS FOR WHEEZING OR SHORTNESS OF BREATH 05/04/201804/23 Inactive Augmentin 500 mg-125 mg tablet RxNorm: 915138 1 Tablet(s) PO BID 05/03/2018 Inactive oxycodone 10 mg tablet RxNorm: 7105207 1-2 Tablet(s) PO QID as n eeded for pain 04/21/2018 05/18/2018 Inactive Synthroid 88 mcg tablet RxNorm: 022104 1 Tablet(s) PO QD 04/15/2018 0 08/08/2018 Inactive Symbicort 160 mcg-4.5 mcg/actuation HFA aerosol inhaler RxNo rm: 6610777 2 Puff(s) INH BID 04/15/2018 04/10/2019 Inactive Premarin 0.45 mg tablet RxNorm: 809289 1 Tablet(s) PO QD 04/15/2018 0 08/03/2018 Inactive ProAir HFA 90 mcg/actuation aerosol inhaler RxNorm: 169626 2 Puff(s) INH Q4H prn for wheezing or shortness of breath 04/15/2018 05/03/2018 Inactive metformin ER 500 mg tablet,extended release 24 hr RxNorm: 86 0975 1 Tablet(s) PO QD 04/11/2018 07/07/2018 Inactive omeprazole 40 mg capsule,delayed release RxNorm: 287814 TAKE ONE CAPSULE BY MOUTH DAILY 04/10/2018 06/08/2018 Inactive Synthroid 88 mcg tablet RxNorm: 402939 1 Tablet(s) PO QD 04/04/2018 0 04/14/2018 Inactive Synthroid 88 mcg tablet RxNorm: 933960 1 Tablet(s) PO QD 04/04/2018 0 04/03/2018 Inactive orphenadrine citrate ER 100 mg tablet,extended release RxNor m: 777027 1 Tablet(s) PO BID for muscle spasm 04/04/2018 05/03/2018 Inactive metformin ER 500 mg tablet,extended release 24 hr RxNorm: 86 0975 1 Tablet(s) PO QD NEEDS UPDATED LABS 03/31/2018 04/11/2018 Inactive doxycycline hyclate 100 mg capsule RxNorm: 3533854 1 Capsule(s) PO BID 03/31/2018 04/09/2018 Inactive prednisone 20 mg tablet RxNorm: 343179 3 Tablet(s) PO T ID for 3 days then 1 po BID for 3 days then one daily for 3 days 03/31/2018 07/06/2018 Inactiv e Chantix Continuing Month Box 1 mg tablet RxNorm: 093936 TAKE ONE TABLET BY MOUTH TWICE A DAY 03/25/2018 03/30/2018 Inactive oxycodone 10 mg tablet RxNorm: 4171076 1-2 Tablet(s) PO QID as n eeded for pain 03/21/2018 04/20/2018 Inactive Daliresp 500 mcg tablet RxNorm: 3043843 1 Tablet(s) PO QD 03/15/2018 08/22/2018 Inactive metformin ER 500 mg tablet,extended release 24 hr RxNorm: 86 0975 1 Tablet(s) PO QD NEEDS UPDATED LABS 03/14/2018 03/31/2018 Inactive nystatin 100,000 unit/mL oral suspension RxNorm: 355355 5 Chio liter(s) PO QID 03/02/2018 03/15/2018 Inactive nystatin 100,000 unit/mL oral suspension RxNorm: 411478 5 Chio liter(s) PO QID 03/02/2018 03/01/2018 Inactive oxycodone 10 mg tablet RxNorm: 2151657 1-2 Tablet(s) PO QID as n eeded for pain 02/16/2018 03/20/2018 Inactive fluoxetine 20 mg capsule RxNorm: 954766 1 Capsule(s) PO QD 02/15/20 18 08/02/2018 Inactive metformin ER 500 mg tablet,extended release 24 hr RxNorm: 86 0975 1 Tablet(s) PO QD Needs updated labs 02/14/2018 03/14/2018 Inactive cefdinir 300 mg capsule RxNorm: 338260 1 Capsule(s) PO BID 01/27/20 18 02/04/2018 Inactive orphenadrine citrate ER 100 mg tablet,extended release RxNor m: 227120 1 Tablet(s) PO BID for muscle spasm 01/26/2018 04/04/2018 Inactive gabapentin 300 mg capsule RxNorm: 446643 1 Capsule(s) PO BID 201704/17/2018 Inactive oxycodone 10 mg tablet RxNorm: 7265946 1-2 Tablet(s) PO QID as n eeded for pain 01/17/2018 02/15/2018 Inactive Duragesic 100 mcg/hr transdermal patch RxNorm: 967208 2 Application TD Q48H for pain 01/17/2018 02/15/2018 Inactive gabapentin 300 mg capsule RxNorm: 097672 TAKE ONE CAPSULE BY MO UTH TWICE A DAY 12/20/2017 01/18/2018 Inactive fluoxetine 40 mg capsule RxNorm: 559305 TAKE ONE CAPSULE BY BENOIT TH EVERY MORNING 12/15/2017 03/14/2018 Inactive OneTouch Ultra Test strips RxNorm: TEST DAILY 11/04/2017 02/01/2018 Inactive gabapentin 300 mg capsule RxNorm: 755582 1 Capsule(s) P O TID replaces BID dosing 10/26/2017 02/22/2018 Inactive oxycodone 10 mg tablet RxNorm: 2262985 1-2 Tablet(s) PO QID as n eeded for pain 10/18/2017 01/16/2018 Inactive Duragesic 100 mcg/hr transdermal patch RxNorm: 743600 2 Application TD Q48H for pain 10/18/2017 11/16/2017 Inactive gabapentin 300 mg capsule RxNorm: 036570 1 Capsule(s) PO BID 201610/25/2017 Inactive Abilify 5 mg tablet RxNorm: 438956 1 Tablet(s) PO QAM 09/23/201702/2017 Inactive gabapentin 300 mg capsule RxNorm: 677409 1 Capsule(s) PO BID 201610/17/2017 Inactive oxycodone 10 mg tablet RxNorm: 9299973 1-2 Tablet(s) PO QID as n eeded for pain 09/15/2017 10/17/2017 Inactive Duragesic 100 mcg/hr transdermal patch RxNorm: 955809 2 Application TD Q48H for pain 09/15/2017 10/14/2017 Inactive Duragesic 100 mcg/hr transdermal patch RxNorm: 856487 2 Application TD Q48H for pain 09/15/2017 10/24/2019 Inactive oxycodone 10 mg tablet RxNorm: 5646397 1-2 Tablet(s) PO QID as n eeded for pain 09/15/2017 08/15/2018 Inactive Daliresp 500 mcg tablet RxNorm: 2291320 1 Tablet(s) PO QD 09/06/2017 03/15/2018 Inactive Ventolin HFA 90 mcg/actuation aerosol inhaler RxNorm: 786470 2 Puff(s) INH Q4H as needed 09/02/2017 05/19/2018 Inactive oxycodone 10 mg tablet RxNorm: 0028526 1-2 Tablet(s) PO QID as n eeded for pain 08/17/2017 09/14/2017 Inactive Duragesic 100 mcg/hr transdermal patch RxNorm: 357339 2 Application TD Q48H for pain 08/17/2017 09/14/2017 Inactive fluoxetine 40 mg capsule RxNorm: 047971 Capsule(s) TAKE ONE CAPSULE BY MOUTH EVERY MORNING 08/17/2017 12/14/2017 Inactive Pulmicort 1 mg/2 mL suspension for nebulization RxNorm: 6168 19 1 Unit Dose INH BID Dx: COPD (J44.9) 08/16/2017 08/22/2018 Inactive gabapentin 300 mg capsule RxNorm: 191874 1 Capsule(s) PO QHS 201610/18/2017 Inactive fluoxetine 20 mg capsule RxNorm: 758997 1 Capsule(s) PO QD 08/12/20 17 02/14/2018 Inactive Abilify 2 mg tablet RxNorm: 898000 1 Tablet(s) PO QD TA KE ONE TABLET BY MOUTH DAILY 08/12/2017 10/25/2017 Inactive metformin ER 500 mg tablet,extended release 24 hr RxNorm: 86 0975 1 Tablet(s) PO QD 08/10/2017 02/14/2018 Inactive Synthroid 112 mcg tablet RxNorm: 858791 1 Tablet(s) PO QD 08/10/2017 04/15/2018 Inactive oxycodone 10 mg tablet RxNorm: 8739124 1-2 Tablet(s) PO QID as n eeded for pain 07/19/2017 08/16/2017 Inactive Duragesic 100 mcg/hr transdermal patch RxNorm: 118530 2 Application TD Q48H for pain 07/19/2017 08/16/2017 Inactive Ventolin HFA 90 mcg/actuation aerosol inhaler RxNorm: 383866 2 Puff(s) INH Q4H as needed 07/12/2017 09/02/2017 Inactive Abilify 2 mg tablet RxNorm: 964117 1 Tablet(s) PO QD TA KE ONE TABLET BY MOUTH DAILY 07/06/2017 08/11/2017 Inactive gabapentin 800 mg tablet RxNorm: 055462 1 Tablet(s) PO TID 06/22/20 17 07/05/2017 Inactive Chantix Starting Month Box 0.5 mg (11)-1 mg (42) table ts in dose pack RxNorm: 801166 TAKE BY MOUTH INSTRUCTED - PER PACKAGE INSTRUCTIONS 06/0707/04/2017 Inactive Ventolin HFA 90 mcg/actuation aerosol inhaler RxNorm: 142998 2 Puff(s) INH Q4H as needed 05/26/2017 07/12/2017 Inactive Duragesic 100 mcg/hr transdermal patch RxNorm: 354797 2 Application TD Q48H for pain 05/19/2017 06/17/2017 Inactive oxycodone 10 mg tablet RxNorm: 1879368 1-2 Tablet(s) PO QID as n eeded for pain 05/19/2017 07/18/2017 Inactive Abilify 2 mg tablet RxNorm: 148104 TAKE ONE TABLET BY MOUTH DAILY 0 05/10/2017 07/05/2017 Inactive Synthroid 112 mcg tablet RxNorm: 149848 1 Tablet(s) PO QD 05/06/2017 08/10/2017 Inactive metformin ER 500 mg tablet,extended release 24 hr RxNorm: 86 0975 1 Tablet(s) PO QD 05/06/2017 08/10/2017 Inactive Topamax 100 mg tablet RxNorm: 590597 1 Tablet(s) PO QHS 05/06/2017 Inactive Premarin 0.45 mg tablet RxNorm: 444413 1 Tablet(s) PO QD 05/06/2017 0 04/15/2018 Inactive orphenadrine citrate ER 100 mg tablet,extended release RxNor m: 586696 1 Tablet(s) PO TID for muscle spasm--replaces methocarbamol 04/29/2017 Inactive oxycodone 10 mg tablet RxNorm: 2472720 1-2 Tablet(s) PO QID as n eeded for pain 04/21/2017 05/18/2017 Inactive Duragesic 100 mcg/hr transdermal patch RxNorm: 813213 2 Application TD Q48H for pain 04/21/2017 05/18/2017 Inactive fluoxetine 40 mg capsule RxNorm: 285868 Capsule(s) TAKE ONE CAPSULE BY MOUTH EVERY MORNING 04/20/2017 08/17/2017 Inactive Ventolin HFA 90 mcg/actuation aerosol inhaler RxNorm: 925305 2 Puff(s) INH Q4H as needed 04/05/2017 05/26/2017 Inactive Symbicort 160 mcg-4.5 mcg/actuation HFA aerosol inhaler RxNo rm: 4399237 2 Puff(s) INH BID 03/30/2017 04/15/2018 Inactive Spiriva with HandiHaler 18 mcg and inhalation capsules RxNor m: 955907 1 Capsule(s) INH QD USING HANDIHALER 03/30/2017 02/12/2019 Inactive Duragesic 100 mcg/hr transdermal patch RxNorm: 937518 2 Application TD Q48H for pain 03/18/2017 04/16/2017 Inactive oxycodone 10 mg tablet RxNorm: 5347588 1-2 Tablet(s) PO QID as n eeded for pain 03/18/2017 04/20/2017 Inactive metformin ER 500 mg tablet,extended release 24 hr RxNorm: 86 0975 Tablet(s) TAKE ONE TABLET BY MOUTH DAILY 03/01/2017 05/06/2017 Inactive Premarin 0.45 mg tablet RxNorm: 528244 Tablet(s) TAKE ONE TABLE T BY MOUTH DAILY 03/01/2017 05/06/2017 Inactive Synthroid 112 mcg tablet RxNorm: 236542 Tablet(s) TAKE ONE TABLET BY MOUTH DAILY 03/01/2017 05/06/2017 Inactive Daliresp 500 mcg tablet RxNorm: 6378163 1 Tablet(s) PO QD 03/01/2017 09/06/2017 Inactive 16.2 mg-0.1037 mg-0.0194 mg tablet RxNorm: 4229154 Tablet(s) PO PRN for gas and cramping 02/23/2017 04/28/2017 Inactive TAKE TWO TABLET S BY MOUTH THREE TIMES A DAY NEEDED FOR GAS AND CRAMPING gabapentin 800 mg tablet RxNorm: 254443 1 Tablet(s) PO TID repl aces 600mg 02/23/2017 04/28/2017 Inactive Duragesic 100 mcg/hr transdermal patch RxNorm: 008566 2 Application TD Q48H for pain 02/17/2017 03/17/2017 Inactive fluoxetine 20 mg capsule RxNorm: 913686 1 Capsule(s) PO QD 02/18/20 17 08/12/2017 Inactive oxycodone 20 mg tablet RxNorm: 4426485 1 Tablet(s) PO QID as nee ded for pain 02/17/2017 03/17/2017 Inactive Ventolin HFA 90 mcg/actuation aerosol inhaler RxNorm: 821585 INHALE TWO PUFFS BY MOUTH EVERY 4 HOURS NEEDED 02/15/2017 04/05/2017 Inactive Silvadene 1 % topical cream RxNorm: 255821 1 Application TOP BI D to burn area 02/01/2017 09/22/2017 Inactive Topamax 100 mg tablet RxNorm: 394571 TAKE ONE TABLET BY MOUTH EVERY NIGHT AT BEDTIME 01/29/2017 05/06/2017 Inactive Chantix Starting Month Box 0.5 mg (11)-1 mg (42) table ts in dose pack RxNorm: 970007 Tablet(s) PO as directed 01/29/2017 06/01/2017 Inactive Abilify 2 mg tablet RxNorm: 789563 TAKE ONE TABLET BY MOUTH DAILY 0 01/26/2017 04/25/2017 Inactive Chantix Starting Month Box 0.5 mg (11)-1 mg (42) table ts in dose pack RxNorm: 220020 Tablet(s) PO as directed 01/20/2017 01/28/2017 Inactive gabapentin 600 mg tablet RxNorm: 015786 1 Tablet(s) PO TID 01/21/20 17 02/22/2017 Inactive Chantix Continuing Month Box 1 mg tablet RxNorm: 791646 1 Table t(s) PO BID 12/31/2016 06/01/2017 Inactive Spiriva with HandiHaler 18 mcg and inhalation capsules RxNor m: 947156 INHALE THE ENTIRE CONTENTS OF 1 CAPSULE ONCE A DAY USING HANDIHALER 12/31/201607/2017 Inactive Synthroid 112 mcg tablet RxNorm: 482240 TAKE ONE TABLET BY MOUT H DAILY 12/30/2016 03/01/2017 Inactive metformin ER 500 mg tablet,extended release 24 hr RxNorm: 86 0975 TAKE ONE TABLET BY MOUTH DAILY 12/30/2016 03/01/2017 Inactive Premarin 0.45 mg tablet RxNorm: 031275 TAKE ONE TABLET BY MOUTH DAILY 12/30/2016 03/01/2017 Inactive omeprazole 40 mg capsule,delayed release RxNorm: 216316 TAKE ONE CAPSULE BY MOUTH DAILY 12/30/2016 01/25/2018 Inactive Ventolin HFA 90 mcg/actuation aerosol inhaler RxNorm: 423520 INHALE TWO PUFFS BY MOUTH EVERY 4 HOURS NEEDED 12/28/2016 02/13/2017 Inactive fluoxetine 40 mg capsule RxNorm: 670536 TAKE ONE CAPSULE BY BENOIT TH EVERY MORNING 12/15/2016 04/20/2017 Inactive Chantix Continuing Month Box 1 mg tablet RxNorm: 220807 TAKE ONE TABLET BY MOUTH TWICE A DAY 12/04/2016 12/31/2016 Inactive doxycycline hyclate 100 mg capsule RxNorm: 5993225 1 Capsule(s) PO BID 12/01/2016 12/07/2016 Inactive Levaquin 750 mg tablet RxNorm: 278820 1 Tablet(s) PO QD 12/01/2016 Inactive Abilify 2 mg tablet RxNorm: 632884 TAKE ONE TABLET BY MOUTH DAILY 0 11/25/2016 11/30/2016 Inactive Ventolin HFA 90 mcg/actuation aerosol inhaler RxNorm: 030634 INHALE TWO PUFFS BY MOUTH EVERY 4 HOURS NEEDED 11/02/2016 12/19/2016 Inactive Chantix Continuing Month Box 1 mg tablet RxNorm: 906127 Tablet(s) PO as directed 10/30/2016 12/03/2016 Inactive Symbicort 160 mcg-4.5 mcg/actuation HFA aerosol inhaler RxNo rm: 0782291 INHALE TWO PUFFS TWO TIMES A DAY 10/30/2016 03/30/2017 Inactive Abilify 2 mg tablet RxNorm: 746463 1 Tablet(s) PO QD 10/27/201611/24 Inactive amoxicillin 500 mg capsule RxNorm: 765771 1 Capsule(s) PO TID 10/1410/23/2016 Inactive amoxicillin 500 mg capsule RxNorm: 658390 1 Capsule(s) PO TID 10/1410/13/2016 Inactive Synthroid 112 mcg tablet RxNorm: 135521 TAKE ONE TABLET BY MOUT H DAILY 09/28/2016 12/29/2016 Inactive Topamax 100 mg tablet RxNorm: 746203 TAKE ONE TABLET BY MOUTH EVERY NIGHT AT BEDTIME 09/28/2016 01/28/2017 Inactive Premarin 0.45 mg tablet RxNorm: 300903 TAKE ONE TABLET BY MOUTH DAILY 09/28/2016 12/29/2016 Inactive metformin ER 500 mg tablet,extended release 24 hr RxNorm: 86 0975 TAKE ONE TABLET BY MOUTH DAILY 09/28/2016 12/29/2016 Inactive Ventolin HFA 90 mcg/actuation aerosol inhaler RxNorm: 322388 INHALE TWO PUFFS BY MOUTH EVERY 4 HOURS NEEDED 09/22/2016 10/23/2016 Inactive Pulmicort 1 mg/2 mL suspension for nebulization RxNorm: 6168 19 1 Unit Dose INH BID Dx: COPD (J44.9) 09/10/2016 08/16/2017 Inactive Pulmicort 1 mg/2 mL suspension for nebulization RxNorm: 6168 19 1 Unit Dose INH BID 09/10/2016 09/09/2016 Inactive Brovana 15 mcg/2 mL solution for nebulization RxNorm: 912156 1 Unit Dose INH BID Dx: COPD (J44.9) 09/10/2016 01/25/2018 Inactive Brovana 15 mcg/2 mL solution for nebulization RxNorm: 361423 1 Unit Dose INH BID 09/10/2016 09/09/2016 Inactive ipratropium-albuterol 0.5 mg-3 mg(2.5 mg base)/3 mL ne bulization soln RxNorm: 4673380 1 Unit Dose INH Q4H as needed Dx: COPD (J44.9) 09/10/2016 0 02/12/2019 Inactive orphenadrine citrate ER 100 mg tablet,extended release RxNor m: 827974 1 Tablet(s) PO BID for muscle spasm--replaces methocarbamol 09/09/2016 Inactive Chantix Continuing Month Box 1 mg tablet RxNorm: 145889 Tablet(s) PO as directed 09/09/2016 10/30/2016 Inactive orphenadrine citrate ER 100 mg tablet,extended release RxNor m: 329118 1 Tablet(s) PO BID for muscle spasm 09/09/2016 09/08/2016 Inactive Spiriva with HandiHaler 18 mcg and inhalation capsules RxNor m: 897045 INHALE THE ENTIRE CONTENTS OF 1 CAPSULE ONCE A DAY USING HANDIHALER 09/01/201605/2017 Inactive Daliresp 500 mcg tablet RxNorm: 8735665 1 Tablet(s) PO QD 08/27/2016 03/01/2017 Inactive prednisone 20 mg tablet RxNorm: 123885 3 Tablet(s) PO T ID for 3 days then 1 po BID for 3 days then one daily for 3 days 08/26/2016 04/28/2017 Inactiv e Wellbutrin XL 300 mg 24 hr tablet, extended release RxNorm: 659487 TAKE ONE TABLET BY MOUTH EVERY MORNING 07/29/2016 10/26/2016 Inactive gabapentin 600 mg tablet RxNorm: 215291 1 Tablet(s) PO BID 06/26/20 16 12/22/2016 Inactive fluoxetine 40 mg capsule RxNorm: 558459 TAKE ONE CAPSULE BY BENOIT TH EVERY MORNING 06/24/2016 11/20/2016 Inactive Duragesic 100 mcg/hr transdermal patch RxNorm: 535815 2 Application TD Q48H for pain 06/05/2016 07/04/2016 Inactive oxycodone 10 mg tablet RxNorm: 6587478 1-2 Tablet(s) PO QID as n eeded for pain 06/05/2016 03/17/2017 Inactive Belladonna-Phenobarbital 48 mg tablet,extended release RxNor m: 2 Tablet(s) PO TID 06/05/2016 01/19/2017 Inactive Premarin 0.45 mg tablet RxNorm: 154383 TAKE ONE TABLET BY MOUTH DAILY 05/27/2016 09/23/2016 Inactive Topamax 100 mg tablet RxNorm: 882241 TAKE ONE TABLET BY MOUTH EVERY NIGHT AT BEDTIME 05/27/2016 09/27/2016 Inactive Synthroid 112 mcg tablet RxNorm: 661460 TAKE ONE TABLET BY MOUT H DAILY 05/27/2016 09/23/2016 Inactive metformin ER 500 mg tablet,extended release 24 hr RxNorm: 86 0975 TAKE ONE TABLET BY MOUTH DAILY 05/27/2016 09/23/2016 Inactive Symbicort 160 mcg-4.5 mcg/actuation HFA aerosol inhaler RxNo rm: 5366641 INHALE TWO PUFFS TWO TIMES A DAY 05/27/2016 10/23/2016 Inactive Ventolin HFA 90 mcg/actuation aerosol inhaler RxNorm: 998344 INHALE TWO PUFFS BY MOUTH EVERY 4 HOURS NEEDED 05/21/2016 07/07/2016 Inactive omeprazole 40 mg capsule,delayed release RxNorm: 285842 1 Capsu le(s) PO QD 05/06/2016 08/03/2016 Inactive metformin ER 500 mg tablet,extended release 24 hr RxNorm: 86 0975 TAKE ONE TABLET BY MOUTH DAILY 04/23/2016 05/22/2016 Inactive methocarbamol 750 mg tablet RxNorm: 139224 2 Tablet(s) PO TID as needed for muscle spasm 04/23/2016 09/08/2016 Inactive Synthroid 112 mcg tablet RxNorm: 841592 TAKE ONE TABLET BY MOUT H DAILY 04/23/2016 05/22/2016 Inactive Spiriva with HandiHaler 18 mcg and inhalation capsules RxNor m: 244864 INHALE THE ENTIRE CONTENTS OF 1 CAPSULE ONCE A DAY USING HANDIHALER 04/09/201608/2016 Inactive Diflucan 100 mg tablet RxNorm: 497254 1 Tablet(s) PO QD 04/08/2016 Inactive doxycycline hyclate 100 mg capsule RxNorm: 6724927 1 Capsule(s) PO BID 04/08/2016 04/17/2016 Inactive doxycycline hyclate 100 mg capsule RxNorm: 4642276 1 Capsule(s) PO BID 04/08/2016 04/07/2016 Inactive Diflucan 100 mg tablet RxNorm: 398128 1 Tablet(s) PO QD 04/08/2016 Inactive ondansetron HCl 4 mg tablet RxNorm: 026126 1 Tablet(s) PO Q4H as needed for nausea and vomiting 04/08/2016 09/22/2017 Inactive gabapentin 600 mg tablet RxNorm: 932629 TAKE ONE TABLET BY MOUT H TWICE A DAY 03/24/2016 06/25/2016 Inactive Synthroid 112 mcg tablet RxNorm: 896141 TAKE ONE TABLET BY MOUT H DAILY 02/25/2016 04/22/2016 Inactive Levaquin 500 mg tablet RxNorm: 067452 1 Tablet(s) PO QD 01/23/2016 Inactive prednisone 20 mg tablet RxNorm: 978111 1 Tablet(s) PO T ID for 3 days then 1 po BID for 3 days then one daily for 3 days 01/23/2016 08/25/2016 Inactiv e [employer] Ultra Test strips RxNorm: TEST BLOOD SUGAR ONCE DAILY 250.00 01/09/2016 11/04/2017 Inactive methocarbamol 750 mg tablet RxNorm: 270114 2 Tablet(s) PO TID as needed for muscle spasm 01/09/2016 04/23/2016 Inactive lactulose 10 gram/15 mL oral solution RxNorm: 967315 [address](s) PO QD 01/09/2016 09/22/2017 Inactive TAKE 1 TABLESPOON BY MOUTH ONCE DAILY metformin ER 500 mg tablet,extended release 24 hr RxNorm: 86 0975 1 Tablet(s) PO QD 12/26/2015 04/22/2016 Inactive fluoxetine 20 mg capsule RxNorm: 617163 1 Capsule(s) PO QD 12/23/19 16 06/19/2016 Inactive Premarin 0.45 mg tablet RxNorm: 516713 TAKE ONE TABLET BY MOUTH DAILY 12/23/2015 05/20/2016 Inactive fluoxetine 40 mg capsule RxNorm: 016876 1 Capsule(s) PO QD 12/23/19 16 06/19/2016 Inactive TAKE ONE CAPSULE BY MOUTH EV JANKI MORNING azithromycin 500 mg tablet RxNorm: 485535 1 Tablet(s) PO QD 016 12/19/2015 Inactive Zofran 4 mg tablet RxNorm: 171096 1 Tablet(s) PO Q4H prn nausea /vomiting 12/13/2015 03/30/2018 Inactive azithromycin 500 mg tablet RxNorm: 243529 1 Tablet(s) PO QD 016 12/12/2015 Inactive Duragesic 100 mcg/hr transdermal patch RxNorm: 056232 2 Application TD Q48H for pain 12/09/2015 01/07/2016 Inactive oxycodone 10 mg tablet RxNorm: 4561691 1-2 Tablet(s) PO QID as n eeded for pain 12/09/2015 06/04/2016 Inactive Bactroban 2 % topical cream RxNorm: 160852 Application TOP BID 11/2208/25/2016 Inactive doxycycline hyclate 100 mg capsule RxNorm: 0189372 1 Capsule(s) PO BID 12/03/2015 12/12/2015 Inactive Topamax 100 mg tablet RxNorm: 432880 TAKE ONE TABLET BY MOUTH EVERY NIGHT AT BEDTIME 11/25/2015 05/22/2016 Inactive Symbicort 160 mcg-4.5 mcg/actuation HFA aerosol inhaler RxNo rm: 8273553 INHALE TWO PUFFS TWO TIMES A DAY 11/25/2015 05/22/2016 Inactive Synthroid 112 mcg tablet RxNorm: 882845 Tablet(s) TAKE ONE TABLET BY MOUTH DAILY 11/25/2015 02/22/2016 Inactive omeprazole 40 mg capsule,delayed release RxNorm: 254921 1 Capsu le(s) PO QD 11/12/2015 05/05/2016 Inactive oxycodone 10 mg tablet RxNorm: 8350830 1-2 Tablet(s) PO QID as n eeded for pain 11/05/2015 12/08/2015 Inactive Duragesic 100 mcg/hr transdermal patch RxNorm: 041152 2 Application TD Q48H for pain 11/05/2015 12/04/2015 Inactive omeprazole 40 mg capsule,delayed release RxNorm: 361994 1 Capsu le(s) PO QD 10/07/2015 11/11/2015 Inactive Januvia 100 mg tablet RxNorm: 100834 TAKE ONE TABLET BY MOUTH DAILY 09/11/2015 12/25/2015 Inactive Zithromax 500 mg tablet RxNorm: 073896 1 Tablet(s) PO QD 09/10/2015 1 Inactive prednisone 20 mg tablet RxNorm: 331477 1 Tablet(s) PO T ID for 3 days then 1 po BID for 3 days then one daily for 3 days 09/10/2015 08/25/2016 Inactiv e Wellbutrin XL 300 mg 24 hr tablet, extended release RxNorm: 092482 1 Tablet(s) PO QAM 09/10/2015 12/02/2015 Inactive Topamax 100 mg tablet RxNorm: 129575 TAKE ONE TABLET BY MOUTH EVERY NIGHT AT BEDTIME 09/02/2015 11/24/2015 Inactive Synthroid 112 mcg tablet RxNorm: 988259 TAKE ONE TABLET BY MOUT H DAILY 09/02/2015 11/25/2015 Inactive methocarbamol 750 mg tablet RxNorm: 976404 2 Tablet(s) PO TID as needed for muscle spasm 08/15/2015 01/09/2016 Inactive Wellbutrin XL 150 mg 24 hr tablet, extended release RxNorm: 026504 TAKE ONE TABLET BY MOUTH EVERY MORNING 08/13/2015 08/13/2015 Inactive gabapentin 600 mg tablet RxNorm: 420985 1 Tablet(s) PO BID 08/13/20 15 02/08/2016 Inactive Wellbutrin XL 300 mg 24 hr tablet, extended release RxNorm: 410697 1 Tablet(s) PO QAM 08/06/2015 09/09/2015 Inactive Wellbutrin XL 150 mg 24 hr tablet, extended release RxNorm: 505928 1 Tablet(s) PO QAM 07/18/2015 08/05/2015 Inactive prednisone 20 mg tablet RxNorm: 240184 1 Tablet(s) PO BID 07/18/2015 07/22/2015 Inactive doxycycline hyclate 100 mg tablet,delayed release RxNorm: 43 4018 1 Tablet(s) PO BID 07/18/2015 07/27/2015 Inactive pravastatin 40 mg tablet RxNorm: 335043 1 Tablet(s) PO QD NEEDS FASTING LAB 07/15/2015 07/14/2015 Inactive pravastatin 40 mg tablet RxNorm: 922870 1 Tablet(s) PO QD NEEDS FASTING LAB 07/15/2015 01/25/2018 Inactive Ventolin HFA 90 mcg/actuation aerosol inhaler RxNorm: 438321 2 Puff(s) INH Q4H 07/08/2015 07/07/2015 Inactive prn Premarin 0.45 mg tablet RxNorm: 001560 1 Tablet(s) PO QD 07/01/2015 0 12/22/2015 Inactive pravastatin 40 mg tablet RxNorm: 770271 1 Tablet(s) PO QD NEEDS FASTING LAB 06/14/2015 07/15/2015 Inactive Ventolin HFA 90 mcg/actuation aerosol inhaler RxNorm: 1538312 2 Puff(s) INH Q4H 06/06/2015 07/08/2015 Inactive prn albuterol sulfate 2.5 mg/3 mL (0.083 %) solution for n ebulization RxNorm: 661868 1 Unit Dose INH QID 05/30/2015 No Stop Date Active Duragesic 100 mcg/hr transdermal patch RxNorm: 473678 2 Application TD Q48H for pain 04/29/2015 05/28/2015 Inactive gabapentin 600 mg tablet RxNorm: 273861 1 Tablet(s) PO BID 04/11/20 15 08/13/2015 Inactive Onglyza 5 mg tablet RxNorm: 620738 1 Tablet(s) PO QD for blood suga r 04/10/2015 04/15/2015 Inactive [Brand Copay Card: RxBIN:[id number] PCN:CRISTIANA RxGRP:[id number] ID#:[id number]] methocarbamol 750 mg tablet RxNorm: 053542 2 Tablet(s) PO TID as needed for muscle spasm 03/28/2015 08/15/2015 Inactive pravastatin 40 mg tablet RxNorm: 273350 1 Tablet(s) PO QD 03/19/2015 03/18/2015 Inactive pravastatin 40 mg tablet RxNorm: 195399 1 Tablet(s) PO QD 03/19/2015 06/14/2015 Inactive lactulose 10 gram/15 mL oral solution RxNorm: 123999 [address]s) PO QD 03/07/2015 01/09/2016 Inactive TAKE 1 TABLESPOON BY MOUTH ONCE DAILY oxycodone 20 mg tablet RxNorm: 4255995 1 Tablet(s) PO QID as nee ded for pain 03/05/2015 07/08/2015 Inactive Topamax 100 mg tablet RxNorm: 728377 1 Tablet(s) PO QHS TAKE ONE TABLET BY MOUTH AT BEDTIME 02/25/2015 02/12/2019 Inactive metformin ER 500 mg tablet,extended release 24 hr RxNorm: 86 0975 1 Tablet(s) PO QD 02/11/2015 03/04/2015 Inactive take one tablet by mouth every day Daliresp 500 mcg tablet RxNorm: 6535624 1 Tablet(s) PO QD 02/11/2015 08/09/2015 Inactive Endocet 10 mg-325 mg tablet RxNorm: 9200156 1 Tablet(s) PO Q4H as needed for pain 01/23/2015 01/23/2015 Inactive gabapentin 600 mg tablet RxNorm: 226383 1 Tablet(s) PO BID 01/23/2004/11/2015 Inactive methocarbamol 750 mg tablet RxNorm: 363186 2 Tablet(s) PO TID as needed for muscle spasm 01/15/2015 02/13/2015 Inactive fluoxetine 40 mg capsule RxNorm: 276077 1 Capsule(s) PO QD 01/14/20 15 12/23/2015 Inactive TAKE ONE CAPSULE BY MOUTH EV JANKI MORNING fluoxetine 20 mg capsule RxNorm: 874595 1 Capsule(s) PO QD 01/14/20 15 12/23/2015 Inactive Premarin 0.45 mg tablet RxNorm: 721383 1 Tablet(s) PO QD 01/02/2015 0 07/01/2015 Inactive Endocet 10 mg-325 mg tablet RxNorm: 3014778 1-2 Tablet(s) PO Q4H 02/12/2019 Inactive PRN PAIN Duragesic 100 mcg/hr transdermal patch RxNorm: 822901 2 Application TD Q48H for pain 12/25/2014 01/23/2015 Inactive Topamax 100 mg tablet RxNorm: 505320 1 Tablet(s) PO QHS TAKE ONE TABLET BY MOUTH AT BEDTIME 12/25/2014 02/24/2015 Inactive Tudorza Pressair 400 mcg/actuation breath activated RxNorm: 7383238 1 BID INHALE ONE PUFF INTO LUNGS TWO TIMES A DAY 12/17/2014 05/15/2015 Inactive Endocet 10 mg-325 mg tablet RxNorm: 6433319 1-2 Tablet(s) PO Q4H 12/19/2014 Inactive PRN PAIN Duragesic 100 mcg/hr transdermal patch RxNorm: 150232 2 Application TD Q48H for pain 11/20/2014 12/24/2014 Inactive OneTouch Ultra Test strips RxNorm: TEST BLOOD SUGAR ONCE DAILY 250.00 11/16/2014 01/08/2016 Inactive omeprazole 40 mg capsule,delayed release RxNorm: 749024 1 Capsu le(s) PO QD 11/13/2014 11/12/2015 Inactive metformin ER 500 mg tablet,extended release 24 hr RxNorm: 86 0975 1 Tablet(s) PO QD 11/12/2014 02/11/2015 Inactive take one tablet by mouth every day Symbicort 160 mcg-4.5 mcg/actuation HFA aerosol inhaler RxNo rm: 6981469 2 Puff(s) INH BID 11/12/2014 03/11/2015 Inactive INHALE 2 PUFFS O RALLY TWO TIMES A DAY gabapentin 800 mg tablet RxNorm: 325040 1 Tablet(s) PO QD TAKE ONE TABLET BY MOUTH ONCE A DAY 10/22/2014 01/01/2015 Inactive Endocet 10 mg-325 mg tablet RxNorm: 0639992 1-2 Tablet(s) PO Q4H 11/15/2014 Inactive PRN PAIN Duragesic 100 mcg/hr transdermal patch RxNorm: 608090 2 Application TD Q48H for pain 10/17/2014 11/19/2014 Inactive gabapentin 800 mg tablet RxNorm: 754804 1 Tablet(s) PO QD TAKE ONE TABLET BY MOUTH ONCE A DAY 10/04/2014 10/21/2014 Inactive Premarin 0.9 mg tablet RxNorm: 464102 1 Tablet(s) PO QD TAKE ONE TABLET BY MOUTH ONCE A DAY 10/04/2014 01/01/2015 Inactive Spiriva with HandiHaler 18 mcg & inhalation capsules RxNorm: 888245 1 Capsule(s) INH QD 10/03/2014 04/30/2015 Inactive Levaquin 500 mg tablet RxNorm: 911319 1 Tablet(s) PO QD 10/03/2014 Inactive prednisone 20 mg tablet RxNorm: 303638 1 Tablet(s) PO QD 10/03/2014 1 12/09/2013 Inactive Duragesic 100 mcg/hr transdermal patch RxNorm: 608410 2 Application TD Q48H for pain 09/18/2014 10/16/2014 Inactive Endocet 10 mg-325 mg tablet RxNorm: 7433798 1-2 Tablet(s) PO Q4H 10/16/2014 Inactive PRN PAIN Synthroid 112 mcg tablet RxNorm: 368282 1 Tablet(s) QD 09/10/2014 Inactive Synthroid 112 mcg tablet RxNorm: 313107 TAKE ONE TABLET BY MOUTH ONE TIME A DAY. NEEDS LABS 09/10/2014 02/06/2015 Inactive omeprazole 40 mg capsule,delayed release RxNorm: 182983 1 Capsu le(s) PO QD 09/03/2014 11/13/2014 Inactive omeprazole 40 mg capsule,delayed release RxNorm: 982155 1 Capsu le(s) PO QD 09/03/2014 09/02/2014 Inactive Spiriva with HandiHaler 18 mcg & inhalation capsules RxNorm: 372313 1 Capsule(s) INH QD 08/27/2014 10/02/2014 Inactive gabapentin 600 mg tablet RxNorm: 262220 1 Tablet(s) PO BID 08/27/20 14 10/22/2014 Inactive Endocet 10 mg-325 mg tablet RxNorm: 8640309 1-2 Tablet(s) PO Q4H 09/17/2014 Inactive PRN PAIN fentanyl 100 mcg/hr transdermal patch RxNorm: 745227 1 Unit Dos e TD QD 08/21/2014 09/19/2014 Inactive Daliresp 500 mcg tablet RxNorm: 2960423 1 Tablet(s) PO QD 08/13/2014 02/11/2015 Inactive Synthroid 112 mcg tablet RxNorm: 090802 TAKE ONE TABLET BY MOUTH ONE TIME A DAY. NEEDS LABS 08/10/2014 09/10/2014 Inactive Endocet 10 mg-325 mg tablet RxNorm: 1645162 1-2 Tablet(s) PO Q4H 08/17/2014 Inactive PRN PAIN Duragesic 100 mcg/hr transdermal patch RxNorm: 060996 2 Application TD Q48H for pain 07/19/2014 09/17/2014 Inactive fluoxetine 40 mg capsule RxNorm: 366005 1 Capsule(s) PO QD 07/17/20 14 01/14/2015 Inactive TAKE ONE CAPSULE BY MOUTH EV JANKI MORNING fluoxetine 20 mg capsule RxNorm: 262462 1 Capsule(s) PO QD 07/17/20 14 01/14/2015 Inactive Spiriva with HandiHaler 18 mcg & inhalation capsules RxNorm: 029644 1 Capsule(s) INH QD 07/17/2014 08/26/2014 Inactive INHALE CONTENTS OF 1 CAPSULE(S) WITH HANDIHALER ONCE DAILY Zofran 4 mg tablet RxNorm: 297574 1 Tablet(s) PO Q4H prn nausea 07/25/2014 Inactive Synthroid 112 mcg tablet RxNorm: 064832 1 Tablet(s) PO QD 07/09/2014 07/09/2014 Inactive methocarbamol 750 mg tablet RxNorm: 354605 2 Tablet(s) PO TID as needed for muscle spasm 07/09/2014 09/06/2014 Inactive Synthroid 112 mcg tablet RxNorm: 368983 1 Tablet(s) PO QD - nee d labs 07/09/2014 08/07/2014 Inactive Medrol (Aníbal) 4 mg tablets in a dose pack RxNorm: 235322 6 Tablet(s) PO QD --then as directed 07/03/2014 07/08/2014 Inactive Tudorza Pressair 400 mcg/actuation breath activated RxNorm: 6919718 1 Puff(s) INH BID 07/03/2014 12/17/2014 Inactive cefdinir 300 mg capsule RxNorm: 013303 1 Capsule(s) PO BID 07/03/20 14 07/12/2014 Inactive Topamax 100 mg tablet RxNorm: 359567 Tablet(s) TAKE ONE TABLET BY MOUTH AT BEDTIME 07/02/2014 02/25/2015 Inactive Duragesic 100 mcg/hr transdermal patch RxNorm: 009065 2 Application TD Q48H for pain 06/25/2014 07/18/2014 Inactive Endocet 10 mg-325 mg tablet RxNorm: 9765027 1-2 Tablet(s) PO Q4H 07/18/2014 Inactive PRN PAIN metformin ER 500 mg tablet,extended release 24 hr RxNorm: 86 0975 1 Tablet(s) PO QD Needs labs 06/18/2014 07/01/2014 Inactive take one tablet by mouth every day Duragesic 100 mcg/hr transdermal patch RxNorm: 290783 2 Application TD Q48H for pain 05/22/2014 06/24/2014 Inactive Synthroid 112 mcg tablet RxNorm: 713555 1 Tablet(s) PO QD 05/22/2014 07/09/2014 Inactive Endocet 10 mg-325 mg tablet RxNorm: 7718670 1-2 Tablet(s) PO Q4H 06/20/2014 Inactive PRN PAIN Endocet 10 mg-325 mg tablet RxNorm: 0882115 1-2 Tablet(s) PO Q4H 05/21/2014 Inactive PRN PAIN Duragesic 100 mcg/hr transdermal patch RxNorm: 929752 2 Application TD Q48H for pain 04/25/2014 05/21/2014 Inactive Daliresp 500 mcg tablet RxNorm: 9562655 1 Tablet(s) PO QD 04/24/2014 08/13/2014 Inactive Symbicort 160 mcg-4.5 mcg/actuation HFA aerosol inhaler RxNo rm: 9507322 2 Puff(s) INH BID 04/24/2014 08/21/2014 Inactive INHALE 2 PUFFS O RALLY TWO TIMES A DAY metformin ER 500 mg tablet,extended release 24 hr RxNorm: 86 0975 1 Tablet(s) PO QD 04/24/2014 11/12/2014 Inactive TAKE ONE TABLET BY MOUTH EVERY DAY [AttnRPh:Saving Apply/Adjudicate RxGRP:LDMGRP RxBIN:[id number] RxPCN:2012 PCode:01 ID#:[id number]] Symbicort 160 mcg-4.5 mcg/actuation HFA aerosol inhaler RxNo rm: 6980154 2 Puff(s) INH BID 04/24/2014 11/12/2014 Inactive INHALE 2 PUFFS O RALLY TWO TIMES A DAY Premarin 0.9 mg tablet RxNorm: 061760 1 Tablet(s) PO QD 04/24/2014 Inactive TAKE ONE TABLET BY MOUTH EVERY DAY metformin ER 500 mg tablet,extended release 24 hr RxNorm: 86 0975 1 Tablet(s) PO QD Needs labs 04/24/2014 06/18/2014 Inactive TAKE ONE TABLET BY MOUTH EVERY DAY [AttnRPh:Saving Apply/Adjudicate RxGRP:LDMGRP RxBIN:[id number] RxPCN:2012 PCode:01 ID#:[id number]] gabapentin 800 mg tablet RxNorm: 614183 1 Tablet(s) PO QD 04/24/2014 10/04/2014 Inactive TAKE ONE TABLET BY MOUTH EVERY DAY Topamax 100 mg tablet RxNorm: 069400 1 Tablet(s) PO QHS 04/17/2014 Inactive Topamax 100 mg tablet RxNorm: 966591 TAKE ONE TABLET BY MOUTH A T BEDTIME 04/17/2014 07/01/2014 Inactive Tudorza Pressair 400 mcg/actuation breath activated RxNorm: 6376404 1 Puff(s) INH BID 04/11/2014 07/02/2014 Inactive Duragesic 100 mcg/hr transdermal patch RxNorm: 013192 2 Application TD Q48H for pain 03/27/2014 04/24/2014 Inactive Endocet 10 mg-325 mg tablet RxNorm: 6111717 1-2 Tablet(s) PO Q4H 04/24/2014 Inactive PRN PAIN Robaxin 750 mg tablet RxNorm: 586766 2 Tablet(s) PO TID as need ed for spasm 02/23/2014 03/28/2015 Inactive Duragesic 100 mcg/hr transdermal patch RxNorm: 124918 2 Application TD Q48H for pain 02/23/2014 No Stop Date Active Endocet 10 mg-325 mg tablet RxNorm: 6336987 1-2 Tablet(s) PO Q4H 03/23/2014 Inactive PRN PAIN Synthroid 112 mcg tablet RxNorm: 527009 1 Tablet(s) PO QD TAKE ONE TABLET BY MOUTH EVERY DAY 02/15/2014 05/22/2014 Inactive Zithromax 500 mg tablet RxNorm: 054155 1 Tablet(s) PO QD 01/30/2014 0 02/05/2014 Inactive Diflucan 100 mg tablet RxNorm: 953225 1 Tablet(s) PO QD 01/30/2014 Inactive prednisone 20 mg tablet RxNorm: 330905 1 Tablet(s) PO BID 01/30/2014 02/05/2014 Inactive fluoxetine 40 mg capsule RxNorm: 868449 1 Capsule(s) PO QD 01/23/20 14 07/16/2014 Inactive TAKE ONE CAPSULE BY MOUTH EV JANKI MORNING fluoxetine 40 mg capsule RxNorm: 484883 1 Capsule(s) PO QD 01/23/20 14 07/17/2014 Inactive TAKE ONE CAPSULE BY MOUTH EV JANKI MORNING cefdinir 300 mg capsule RxNorm: 159753 1 Capsule(s) PO BID 01/16/20 14 01/29/2014 Inactive Zithromax 500 mg tablet RxNorm: 843618 1 Tablet(s) PO QD 01/16/2014 0 01/22/2014 Inactive prednisone 20 mg tablet RxNorm: 998019 1 Tablet(s) PO BID 01/16/2014 01/22/2014 Inactive Spiriva with HandiHaler 18 mcg and inhalation capsules RxNor m: 401184 1 Capsule(s) INH QD 12/18/2013 07/17/2014 Inactive INHALE CONTENT S OF 1 CAPSULE(S) WITH HANDIHALER ONCE DAILY fluoxetine 20 mg capsule RxNorm: 950698 1 Capsule(s) PO QD 12/18/19 14 06/15/2014 Inactive Spiriva with HandiHaler 18 mcg & inhalation capsules RxNorm: 285692 1 Capsule(s) INH QD 12/18/2013 06/15/2014 Inactive INHALE CONTENTS OF 1 CAPSULE(S) WITH HANDIHALER ONCE DAILY fluoxetine 20 mg capsule RxNorm: 690289 1 Capsule(s) PO QD 12/18/19 14 07/17/2014 Inactive cefdinir 300 mg capsule RxNorm: 525606 2 Capsule(s) PO QD 12/12/2013 12/21/2013 Inactive Duragesic 100 mcg/hr transdermal patch RxNorm: 854777 2 Application TD Q48H for pain 12/08/2013 12/07/2013 Inactive Topamax 100 mg tablet RxNorm: 250939 1 Tablet(s) PO QHS 12/04/2013 Inactive Endocet 10 mg-325 mg tablet RxNorm: 0798667 1-2 Tablet(s) PO Q4H 12/26/2013 Inactive PRN PAIN Robaxin 750 mg tablet RxNorm: 923557 2 Tablet(s) PO TID as need ed for spasm 11/07/2013 01/05/2014 Inactive gabapentin 800 mg tablet RxNorm: 123885 1 Tablet(s) PO QD 10/16/2013 04/24/2014 Inactive TAKE ONE TABLET BY MOUTH EVERY DAY Symbicort 160 mcg-4.5 mcg/actuation HFA aerosol inhaler RxNo rm: 1748331 2 Puff(s) INH BID 10/16/2013 04/24/2014 Inactive INHALE 2 PUFFS O RALLY TWO TIMES A DAY Premarin 0.9 mg tablet RxNorm: 125294 1 Tablet(s) PO QD 10/16/2013 Inactive TAKE ONE TABLET BY MOUTH EVERY DAY metformin ER 500 mg tablet,extended release 24 hr RxNorm: 86 0975 1 Tablet(s) PO QD 10/16/2013 04/24/2014 Inactive TAKE ONE TABLET BY MOUTH EVERY DAY Daliresp 500 mcg tablet RxNorm: 9776073 1 Tablet(s) PO QD 10/16/2013 04/24/2014 Inactive Robaxin 750 mg tablet RxNorm: 091122 2 Tablet(s) PO TID as need ed for spasm 10/10/2013 11/06/2013 Inactive Duragesic 100 mcg/hr transdermal patch RxNorm: 663846 2 Application TD Q48H for pain 10/09/2013 No Stop Date Active Soma 350 mg tablet RxNorm: 868604 1 Tablet(s) PO TID 09/27/201310/09 Inactive TAKE ONE TABLET BY MOUTH THREE TIMES A D AY lactulose 10 gram/15 mL oral solution RxNorm: 704581 [address](s) PO QD 09/13/2013 03/07/2015 Inactive TAKE 1 TABLESPOON BY MOUTH ONCE DAILY Duragesic 100 mcg/hr transdermal patch RxNorm: 896251 2 Application TD Q48H for pain 09/06/2013 No Stop Date Active Endocet 10 mg-325 mg tablet RxNorm: 9502945 1-2 Tablet(s) PO Q4H 09/27/2013 Inactive PRN PAIN lancets 28 gauge RxNorm: Miscellaneous As needed for blo od glucose sticks 08/24/2013 No Stop Date Active 16.2 mg-0.1037 mg-0.0194 mg tablet RxNorm: 9061752 Tablet(s) PO PRN for gas and cramping 08/24/2013 01/19/2017 Inactive TAKE TWO TABLET S BY MOUTH THREE TIMES A DAY NEEDED FOR GAS AND CRAMPING Topamax 100 mg tablet RxNorm: 741703 1 Tablet(s) PO QHS 07/31/2013 Inactive Diflucan 100 mg tablet RxNorm: 962449 1 Tablet(s) PO QD 07/27/2013 Inactive cefdinir 300 mg capsule RxNorm: 707829 1 Capsule(s) PO BID 07/26/20 13 08/08/2013 Inactive Daliresp 500 mcg tablet RxNorm: 8205219 1 Tablet(s) PO QD 07/25/2013 10/15/2013 Inactive fluoxetine 40 mg capsule RxNorm: 196449 1 Capsule(s) PO QD 07/25/20 13 01/22/2014 Inactive TAKE ONE CAPSULE BY MOUTH EV JANKI MORNING Senokot-S 8.6 mg-50 mg tablet RxNorm: 6290185 1 Tablet(s) PO BID 10/25/2013 Inactive doxycycline hyclate 100 mg capsule RxNorm: 0055967 1 Capsule(s) PO BID 06/28/2013 07/07/2013 Inactive prednisone 20 mg tablet RxNorm: 179581 1 Tablet(s) PO BID 06/28/2013 07/04/2013 Inactive Zofran 4 mg tablet RxNorm: 187054 1 Tablet(s) PO Q4H prn nausea 03/201307/05/2013 Inactive Spiriva with HandiHaler 18 mcg & inhalation capsules RxNorm: 100745 1 Capsule(s) INH QD 06/26/2013 12/18/2013 Inactive INHALE CONTENTS OF 1 CAPSULE(S) WITH HANDIHALER ONCE DAILY Synthroid 112 mcg tablet RxNorm: 207655 1 Tablet(s) PO QD TAKE ONE TABLET BY MOUTH EVERY DAY 06/19/2013 02/15/2014 Inactive fluoxetine 20 mg capsule RxNorm: 829517 1 Capsule(s) PO QD 06/19/2012/18/2013 Inactive Ventolin HFA 90 mcg/actuation Aerosol Inhaler RxNorm: 9366278 2 Puff(s) INH Q4H 06/05/2013 No Stop Date Active prn Soma 350 mg tablet RxNorm: 211994 1 Tablet(s) PO TID 06/05/201307/04 Inactive TAKE ONE TABLET BY MOUTH THREE TIMES A D AY prednisone 20 mg tablet RxNorm: 810669 1 Tablet(s) PO QD 05/31/2013 0 06/06/2013 Inactive Topamax 100 mg tablet RxNorm: 271056 1 Tablet(s) PO QHS 05/22/2013 Inactive Levaquin 500 mg tablet RxNorm: 421291 1 Tablet(s) PO QD 05/03/2013 Inactive Diflucan 100 mg tablet RxNorm: 347713 1 Tablet(s) PO QD 05/03/2013 Inactive Daliresp 500 mcg tablet RxNorm: 7964943 1 Tablet(s) PO QD 05/01/2013 07/24/2013 Inactive Daliresp 500 mcg tablet RxNorm: 6284279 1 Tablet(s) PO QD 05/01/2013 04/30/2013 Inactive gabapentin 800 mg tablet RxNorm: 931879 1 Tablet(s) PO QD 04/10/2013 10/06/2013 Inactive TAKE ONE TABLET BY MOUTH EVERY DAY metformin ER 500 mg tablet,extended release 24 hr RxNorm: 86 0977 1 Tablet(s) PO QD 04/10/2013 10/06/2013 Inactive TAKE ONE TABLET BY MOUTH EVERY DAY Premarin 0.9 mg tablet RxNorm: 170313 1 Tablet(s) PO QD 04/10/2013 Inactive TAKE ONE TABLET BY MOUTH EVERY DAY Symbicort 160 mcg-4.5 mcg/actuation HFA aerosol inhaler RxNo rm: 3138207 2 Puff(s) INH BID 04/10/2013 10/06/2013 Inactive INHALE 2 PUFFS O RALLY TWO TIMES A DAY Synthroid 112 mcg tablet RxNorm: 721720 1 Tablet(s) PO QD TAKE ONE TABLET BY MOUTH EVERY DAY 04/10/2013 06/18/2013 Inactive Ventolin HFA 90 mcg/actuation Aerosol Inhaler RxNorm: 237064 2 Puff(s) INH Q4H 04/10/2013 No Stop Date Active prn fentanyl 100 mcg/hr transdermal patch RxNorm: 908334 1 Unit Dos e TD QD 04/03/2013 05/02/2013 Inactive Endocet 10 mg-325 mg tablet RxNorm: 0473683 1-2 Tablet(s) PO Q4H 05/02/2013 Inactive PRN PAIN Topamax 100 mg tablet RxNorm: 674403 1 Tablet(s) PO QHS 03/13/2013 Inactive Reglan 10 mg tablet RxNorm: 279367 1 Tablet(s) PO QID b efore meals and at bedtime 03/13/2013 04/09/2015 Inactive fluoxetine 20 mg capsule RxNorm: 322614 1 Capsule(s) PO QD 02/28/20 13 05/27/2013 Inactive Ventolin HFA 90 mcg/actuation Aerosol Inhaler RxNorm: 729649 2 Puff(s) INH Q4H 02/13/2013 No Stop Date Active prn fluoxetine 40 mg capsule RxNorm: 562747 1 Capsule(s) PO QD 01/31/20 13 07/24/2013 Inactive TAKE ONE CAPSULE BY MOUTH EV JANKI MORNING Soma 350 mg tablet RxNorm: 362795 1 Tablet(s) PO TID 01/20/201302/18 Inactive TAKE ONE TABLET BY MOUTH THREE TIMES A D AY Endocet 10 mg-325 mg tablet RxNorm: 3177497 1-2 Tablet(s) PO Q4H 02/06/2013 Inactive PRN PAIN MS Contin 200 mg tablet,extended release RxNorm: 661454 1 Table t(s) PO BID 01/18/2013 02/06/2013 Inactive Ventolin HFA 90 mcg/actuation Aerosol Inhaler RxNorm: 698178 2 Puff(s) INH Q4H 01/04/2013 No Stop Date Active prn Spiriva with HandiHaler 18 mcg & inhalation capsules RxNorm: 490532 1 Capsule(s) INH QD 12/29/2012 06/25/2013 Inactive INHALE CONTENTS OF 1 CAPSULE(S) WITH HANDIHALER ONCE DAILY Spiriva with HandiHaler 18 mcg & inhalation capsules RxNorm: 810801 1 Capsule(s) INH QD 12/26/2012 12/28/2012 Inactive INHALE CONTENTS OF 1 CAPSULE(S) WITH HANDIHALER ONCE DAILY Synthroid 112 mcg tablet RxNorm: 605677 Tablet(s) PO TA KE ONE TABLET BY MOUTH EVERY DAY 12/26/2012 04/09/2013 Inactive Endocet 10 mg-325 mg tablet RxNorm: 1827931 1-2 Tablet(s) PO Q4H 01/17/2013 Inactive PRN PAIN MS Contin 200 mg tablet,extended release RxNorm: 785780 1 Table t(s) PO BID 12/21/2012 01/17/2013 Inactive fluoxetine 20 mg capsule RxNorm: 939405 1 Capsule(s) PO QD 12/06/19 13 02/26/2013 Inactive Synthroid 112 mcg tablet RxNorm: 510317 1 Tablet(s) PO QD 12/06/2012 02/12/2019 Inactive TAKE ONE TABLET BY MOUTH EVERY DAY Ventolin HFA 90 mcg/actuation Aerosol Inhaler RxNorm: 962194 2 Puff(s) INH Q4H 12/06/2012 No Stop Date Active prn Reglan 10 mg tablet RxNorm: 440833 1 Tablet(s) PO QID b efore meals and at bedtime 11/24/2012 03/12/2013 Inactive Topamax 100 mg tablet RxNorm: 425029 1 Tablet(s) PO QHS 11/16/2012 Inactive Ventolin HFA 90 mcg/actuation Aerosol Inhaler RxNorm: 162586 2 Puff(s) INH Q4H 11/09/2012 No Stop Date Active prn gabapentin 800 mg tablet RxNorm: 648454 1 Tablet(s) PO QD 10/27/2012 04/09/2013 Inactive TAKE ONE TABLET BY MOUTH EVERY DAY metformin ER 500 mg tablet,extended release 24 hr RxNorm: 86 0977 1 Tablet(s) PO QD 10/27/2012 04/09/2013 Inactive TAKE ONE TABLET BY MOUTH EVERY DAY Symbicort 160 mcg-4.5 mcg/actuation HFA Aerosol Inhaler RxNo rm: 0985889 2 Puff(s) INH BID 10/27/2012 04/09/2013 Inactive INHALE 2 PUFFS O RALLY TWO TIMES A DAY Premarin 0.9 mg tablet RxNorm: 598592 1 Tablet(s) PO QD 10/27/2012 Inactive TAKE ONE TABLET BY MOUTH EVERY DAY Endocet 10 mg-325 mg tablet RxNorm: 4143976 1-2 Tablet(s) PO Q4H 11/24/2012 Inactive PRN PAIN MS Contin 200 mg tablet,extended release RxNorm: 526961 1 Table t(s) PO BID 10/26/2012 11/24/2012 Inactive Soma 350 mg tablet RxNorm: 311317 1 Tablet(s) PO TID 10/04/201211/02 Inactive TAKE ONE TABLET BY MOUTH THREE TIMES A D AY Ventolin HFA 90 mcg/actuation Aerosol Inhaler RxNorm: 790779 2 Puff(s) INH Q4H 10/03/2012 No Stop Date Active prn Daliresp 500 mcg tablet RxNorm: 7611799 1 Tablet(s) PO QD 09/28/2012 09/27/2012 Inactive Daliresp 500 mcg tablet RxNorm: 3429531 1 Tablet(s) PO QD 09/28/2012 04/25/2013 Inactive fluoxetine 20 mg capsule RxNorm: 671525 1 Capsule(s) PO QD 09/05/2012/06/2012 Inactive Topamax 50 mg tablet RxNorm: 962832 Tablet(s) PO for 1w k then 1 po q HS for 1wk then 2 po q HS 08/29/2012 09/27/2012 Inactive TAKE 1/2 TABLET BY MOUTH AT BEDTIME FOR 1 WEEK, THEN 1 TABLET AT BEDTIME FOR 1 WEEK, THEN 2 TABLETS AT BEDTIME Topamax 100 mg tablet RxNorm: 045168 1 Tablet(s) PO QHS 08/29/2012 Inactive Ventolin HFA 90 mcg/actuation Aerosol Inhaler RxNorm: 770598 2 Puff(s) INH Q4H 08/19/2012 No Stop Date Active prn Ventolin HFA 90 mcg/actuation Aerosol Inhaler RxNorm: 348008 2 Puff(s) INH Q4H 08/15/2012 No Stop Date Active prn Synthroid 112 mcg tablet RxNorm: 648503 1 Tablet(s) PO QD 08/10/2012 11/07/2012 Inactive TAKE ONE TABLET BY MOUTH EVERY DAY Synthroid 112 mcg tablet RxNorm: 437056 1 Tablet(s) PO QD 08/01/2012 08/09/2012 Inactive TAKE ONE TABLET BY MOUTH EVERY DAY Reglan 10 mg tablet RxNorm: 741863 1 Tablet(s) PO QID b efore meals and at bedtime 08/01/2012 11/23/2012 Inactive fluoxetine 40 mg capsule RxNorm: 493588 1 Capsule(s) PO QD 08/01/2001/27/2013 Inactive TAKE ONE CAPSULE BY MOUTH EV JANKI MORNING Ventolin HFA 90 mcg/actuation Aerosol Inhaler RxNorm: 648323 2 Puff(s) INH Q4H 08/01/2012 No Stop Date Active prn Soma 350 mg tablet RxNorm: 300744 1 Tablet(s) PO TID 07/20/201208/18 Inactive TAKE ONE TABLET BY MOUTH THREE TIMES A D AY Spiriva with HandiHaler 18 mcg & inhalation capsules RxNorm: 994807 1 Capsule(s) INH 07/01/2012 12/25/2012 Inactive INHALE CONTENTS OF 1 CAPSULE(S) WITH HANDIHALER ONCE DAILY Zithromax 250 mg Tab RxNorm: 220869 2 Tablet(s) PO QD 06/28/201206/22 Inactive MS Contin 200 mg tablet,extended release RxNorm: 731777 1 Table t(s) PO BID 06/28/2012 07/27/2012 Inactive Endocet 10 mg-325 mg tablet RxNorm: 8836847 1-2 Tablet(s) PO Q4H 07/27/2012 Inactive PRN PAIN Topamax 100 mg tablet RxNorm: 252597 1 Tablet(s) PO QHS 06/28/2012 Inactive 16.2 mg-0.1037 mg-0.0194 mg tablet RxNorm: 4666518 Tablet(s) PO PRN for gas and cramping 06/08/2012 08/23/2013 Inactive TAKE TWO TABLET S BY MOUTH THREE TIMES A DAY NEEDED FOR GAS AND CRAMPING Ventolin HFA 90 mcg/actuation Aerosol Inhaler RxNorm: 657512 2 Puff(s) INH Q4H 05/23/2012 No Stop Date Active prn Ventolin HFA 90 mcg/actuation Aerosol Inhaler RxNorm: 327838 2 Puff(s) INH Q4H 05/11/2012 No Stop Date Active prn Synthroid 112 mcg tablet RxNorm: 652190 1 Tablet(s) PO QD 05/09/2012 07/31/2012 Inactive TAKE ONE TABLET BY MOUTH EVERY DAY gabapentin 800 mg tablet RxNorm: 437032 1 Tablet(s) PO QD 05/09/2012 10/26/2012 Inactive TAKE ONE TABLET BY MOUTH EVERY DAY fluoxetine 40 mg capsule RxNorm: 741192 1 Capsule(s) PO QD 05/09/2007/31/2012 Inactive TAKE ONE CAPSULE BY MOUTH EV JANKI MORNING metformin ER 500 mg tablet,extended release 24 hr RxNorm: 86 0977 1 Tablet(s) PO QD 05/09/2012 10/26/2012 Inactive TAKE ONE TABLET BY MOUTH EVERY DAY Premarin 0.9 mg tablet RxNorm: 686621 1 Tablet(s) PO QD 05/09/2012 Inactive TAKE ONE TABLET BY MOUTH EVERY DAY Symbicort 160 mcg-4.5 mcg/actuation HFA Aerosol Inhaler RxNo rm: 3317069 2 Puff(s) INH BID 05/09/2012 10/26/2012 Inactive INHALE 2 PUFFS O RALLY TWO TIMES A DAY Endocet 10 mg-325 mg Tab RxNorm: 1400616 1-2 Tablet(s) PO Q4H 04/2705/26/2012 Inactive PRN PAIN MS Contin 200 mg Tab RxNorm: 697053 1 Tablet(s) PO BID 04/26/201202/2012 Inactive Ventolin HFA 90 mcg/actuation Aerosol Inhaler RxNorm: 039408 2 Puff(s) INH Q4H 04/25/2012 05/10/2012 Inactive prn Soma 350 mg tablet RxNorm: 858024 2 Tablet(s) PO TID 04/19/201207/19 Inactive TAKE ONE TABLET BY MOUTH THREE TIMES A D AY Ventolin HFA 90 mcg/actuation Aerosol Inhaler RxNorm: 324713 2 Puff(s) INH Q4H 04/12/2012 04/24/2012 Inactive prn Reglan 10 mg tablet RxNorm: 439910 1 Tablet(s) PO QID b efore meals and at bedtime 04/11/2012 07/31/2012 Inactive MS Contin 200 mg Tab RxNorm: 792611 1 Tablet(s) PO BID 03/30/201202/2012 Inactive Endocet 10 mg-325 mg Tab RxNorm: 1488327 1-2 Tablet(s) PO Q4H 03/3004/26/2012 Inactive PRN PAIN MS Contin 200 mg Tab RxNorm: 535626 1 Tablet(s) PO BID 03/02/201206/2012 Inactive Endocet 10 mg-325 mg Tab RxNorm: 5592408 1-2 Tablet(s) PO Q4H 03/0203/29/2012 Inactive PRN PAIN Daliresp 500 mcg tablet RxNorm: 1508973 1 Tablet(s) PO QD 03/01/2012 09/28/2012 Inactive MS Contin 200 mg Tab RxNorm: 238043 1 Tablet(s) PO BID 02/02/201208/2012 Inactive Endocet 10 mg-325 mg Tab RxNorm: 2852738 1-2 Tablet(s) PO Q4H 02/0103/01/2012 Inactive PRN PAIN fluoxetine 40 mg capsule RxNorm: 141204 1 Capsule(s) PO QD 02/02/2008/01/2012 Inactive TAKE ONE CAPSULE BY MOUTH EV JANKI MORNING Synthroid 112 mcg Tab RxNorm: 522726 1 Tablet(s) PO QD 01/18/2012 Inactive TAKE ONE TABLET BY MOUTH EVERY DAY lactulose 10 gram/15 mL oral solution RxNorm: 417428 [address]s) PO QD 01/18/2012 No Stop Date Active TAKE 1 TABLESPOON BY MOUTH ONCE DAILY Ventolin HFA 90 mcg/actuation Aerosol Inhaler RxNorm: 079166 2 Puff(s) INH Q4H 01/18/2012 04/11/2012 Inactive prn MS Contin 200 mg Tab RxNorm: 228856 1 Tablet(s) PO BID 01/05/201210/2012 Inactive Endocet 10 mg-325 mg Tab RxNorm: 8772578 1-2 Tablet(s) PO Q4H 01/0502/01/2012 Inactive PRN PAIN ProAir HFA 90 mcg/Actuation Aerosol Inhaler RxNorm: 537075 2 Pu ff(s) INH Q4H 12/21/2011 No Stop Date Active prn for wheezing or shortness of breath Spiriva with HandiHaler 18 mcg & inhalation Caps RxNorm: 580 261 1 Capsule(s) INH 12/21/2011 06/30/2012 Inactive INHALE CONTENTS OF 1 CAPSULE(S) WITH HANDIHALER ONCE DAILY Reglan 10 mg Tab RxNorm: 872626 1 Tablet(s) PO QID before meals and at bedtime 12/21/2011 04/10/2012 Inactive Synthroid 112 mcg Tab RxNorm: 390534 1 Tablet(s) PO QD 12/21/2011 Inactive TAKE ONE TABLET BY MOUTH EVERY DAY Endocet 10 mg-325 mg Tab RxNorm: 7949294 1-2 Tablet(s) PO Q4H 11/2512/24/2011 Inactive PRN PAIN MS Contin 200 mg Tab RxNorm: 374716 1 Tablet(s) PO BID 11/25/201112/2011 Inactive lactulose 10 gram/15 mL Oral Soln RxNorm: 314557 Milliliter(s) PO 1 No Stop Date Active TAKE 1 TABLESPOON BY MOUTH O NCE DAILY lactulose 10 gram/15 mL Oral Soln RxNorm: 783313 Milliliter(s) PO 1 12/12/2010 11/20/2011 Inactive TAKE 1 TABLESPOON BY MOUTH O NCE DAILY Premarin 0.9 mg Tab RxNorm: 951731 1 Tablet(s) PO QD 10/12/201105/08 Inactive TAKE ONE TABLET BY MOUTH EVERY DAY fluoxetine 20 mg capsule RxNorm: 647222 1 Capsule(s) PO QD 10/12/2009/05/2012 Inactive TAKE ONE CAPSULE BY MOUTH EV JANKI DAY Synthroid 112 mcg Tab RxNorm: 731404 1 Tablet(s) PO QD 10/12/2011 Inactive TAKE ONE TABLET BY MOUTH EVERY DAY metformin ER 500 mg 24 hr Tab RxNorm: 745273 1 Tablet(s) PO QD 09/2311/10/2011 Inactive TAKE ONE TABLET BY MOUTH GLYNN RY DAY Synthroid 112 mcg Tab RxNorm: 647347 1 Tablet(s) PO QD 10/12/2011 Inactive TAKE ONE TABLET BY MOUTH EVERY DAY metformin ER 500 mg 24 hr Tab RxNorm: 576255 1 Tablet(s) PO QD 09/2310/11/2011 Inactive TAKE ONE TABLET BY MOUTH GLYNN RY DAY Prevacid 30 mg Cap RxNorm: 137404 Capsule(s) PO 10/12/2011 01/25/2012 Inactive TAKE ONE CAPSULE BY MOUTH EVERY DAY Symbicort 160 mcg-4.5 mcg/actuation HFA Aerosol Inhaler RxNo rm: 5898993 2 Puff(s) INH BID 10/12/2011 05/08/2012 Inactive INHALE 2 PUFFS O RALLY TWO TIMES A DAY gabapentin 800 mg Tab RxNorm: 264334 1 Tablet(s) PO QD 10/12/2011 Inactive TAKE ONE TABLET BY MOUTH EVERY DAY MS Contin 200 mg Tab RxNorm: 277461 1 Tablet(s) PO BID 09/23/201111/2010 Inactive Endocet 10 mg-325 mg Tab RxNorm: 8853836 1-2 Tablet(s) PO Q4H 09/2310/22/2011 Inactive PRN PAIN Endocet 10 mg-325 mg Tab RxNorm: 2950809 1-2 Tablet(s) PO Q4H 08/2109/19/2011 Inactive PRN PAIN MS Contin 200 mg Tab RxNorm: 446717 1 Tablet(s) PO BID 08/21/2011 Inactive Diflucan 100 mg Tab RxNorm: 245304 1 Tablet(s) PO QD 08/10/201108/16 Inactive cefdinir 300 mg Cap RxNorm: 330209 2 Capsule(s) PO QD 08/10/201107/24 Inactive Reglan 10 mg Tab RxNorm: 026337 1 Tablet(s) PO AC & HS 07/15/2011 Inactive Endocet 10 mg-325 mg Tab RxNorm: 0225175 1-2 Tablet(s) PO Q4H 07/1508/13/2011 Inactive PRN PAIN One Touch Ultra Test strips RxNorm: Miscellaneous BID 06/11/2011 1 01/16/2014 Inactive TEST TWO TIMES A DAY lactulose 10 gram/15 mL Oral Soln RxNorm: 122418 Milliliter(s) PO 0 06/10/2011 10/11/2011 Inactive TAKE 1 TABLESPOON BY MOUTH O NCE DAILY Chantix Continuing Month Aníbal 1 mg Tab RxNorm: 161442 Tablet(s) PO 0 06/10/2011 11/02/2011 Inactive TAKE DIRECTED - PER [employer] GE INSTRUCTIONS fluoxetine 40 mg Cap RxNorm: 178311 Capsule(s) PO 06/10/2011 02/02/20 12 Inactive TAKE ONE CAPSULE BY MOUTH EVERY MORNING Chantix Continuing Month Aníbal 1 mg Tab RxNorm: 677007 Ta blet(s) PO TAKE DIRECTED - PER PACKAGE INSTRUCTIONS 05/13/2011 06/09/2011 Inactive Soma 350 mg Tab RxNorm: 115077 Tablet(s) PO TAKE ON E TABLET BY MOUTH THREE TIMES A DAY 05/13/2011 04/18/2012 Inactive Chantix Continuing Month Aníbal 1 mg Tab RxNorm: 168185 Ta blet(s) PO as directed per package instructions. 04/22/2011 05/12/2011 Inactive Symbicort 160 mcg-4.5 mcg/Actuation HFA Aerosol Inhaler RxNo rm: 8554841 HFA Aerosol Inhaler INH INHALE 2 PUFFS ORALLY TWO TIMES A DAY 04/13/2011 Inactive Synthroid 112 mcg Tab RxNorm: 770637 Tablet(s) PO TAKE ONE TABLET BY MOUTH EVERY DAY 04/13/2011 10/12/2011 Inactive Premarin 0.9 mg Tab RxNorm: 862238 Tablet(s) PO TAKE ON E TABLET BY MOUTH EVERY DAY 04/13/2011 10/12/2011 Inactive gabapentin 800 mg Tab RxNorm: 301530 Tablet(s) PO TAKE ONE TABLET BY MOUTH EVERY DAY 04/13/2011 10/12/2011 Inactive Prevacid 30 mg Cap RxNorm: 110368 1 Capsule(s) PO QD 04/13/201110/11 Inactive Spiriva with HandiHaler 18 mcg & inhalation Caps RxNorm: 580 261 Capsule(s) INH INHALE CONTENTS OF 1 CAPSULE(S) WITH HANDIHALER ONCE DAILY 04/13/2011 12/21/2011 Inactive metformin ER 500 mg 24 hr Tab RxNorm: 879795 Tablet(s) PO TAKE ONE TABLET BY MOUTH EVERY DAY 04/13/2011 10/12/2011 Inactive Soma 350 mg Tab RxNorm: 587135 1 Tablet(s) PO QID 03/30/2011 02/13/20 19 Inactive fluoxetine 20 mg Cap RxNorm: 245530 Capsule(s) PO TAKE ONE CAPSULE BY MOUTH EVERY DAY 03/25/2011 10/12/2011 Inactive cefdinir 300 mg Cap RxNorm: 859463 2 Capsule(s) PO QD 03/19/201105/2011 Inactive 16.2 mg-0.1037 mg-0.0194 mg Tab RxNorm: 7173202 2 Tablet(s) PO TID PRN for gas and cramping 03/16/2011 07/13/2011 Inactive Soma 350 mg Tab RxNorm: 622337 2 Tablet(s) PO TID 03/16/2011 03/29/20 11 Inactive Chantix Starting Month Aníbal 0.5 mg (11)-1 mg (3x14) Tab s in a Dose Pack RxNorm: 299465 Tablet(s) PO as directed 03/02/2011 No Stop Date Active diazepam 10 mg Tab RxNorm: 919867 1 Tablet(s) PO BID 02/10/201101/19 Inactive Zofran 4 mg tablet RxNorm: 642997 1 Tablet(s) PO Q4H prn nausea 02/16/2011 Inactive Diflucan 100 mg Tab RxNorm: 417197 1 Tablet(s) PO QD 01/18/201101/24 Inactive Premarin 0.625 mg/g Vaginal Cream RxNorm: 271003 VAG In sert 1gm vaginally at bedtime 3 times weekly 01/18/2011 02/12/2019 Inactive loratadine 10 mg Tab RxNorm: 5163259 1 Tablet(s) PO QD 12/17/201003/2012 Inactive Spiriva with HandiHaler 18 mcg & inhalation Caps RxNorm: 580 261 1 Capsule(s) INH QD 12/17/2010 04/12/2011 Inactive Diflucan 100 mg Tab RxNorm: 263988 1 Tablet(s) PO QD 12/17/201012/23 Inactive diazepam 10 mg Tab RxNorm: 734138 1 Tablet(s) PO BID and PRN 201002/12/2019 Inactive One Touch Ultra Test Strips RxNorm: InVt BID Zainab t blood sugar at least twice daily. 11/11/2010 06/11/2011 Inactive fluoxetine 40 mg Cap RxNorm: 976055 1 Capsule(s) PO QAM 11/11/2010 Inactive diazepam 10 mg Tab RxNorm: 853488 1 Tablet(s) PO BID and PRN 200911/12/2010 Inactive Bactrim DS 800 mg-160 mg Tab RxNorm: 358063 1 Tablet(s) PO BID 09/2210/15/2010 Inactive fluoxetine 20 mg Cap RxNorm: 979986 1 Capsule(s) PO QD 10/02/201008/2011 Inactive Bactrim DS 800 mg-160 mg Tab RxNorm: 455261 1 Tablet(s) PO BID 01/201010/03/2010 Inactive Zofran 4 mg Tab RxNorm: 895362 1 Tablet(s) PO Q4H prn nausea 200910/16/2010 Inactive 16.2 mg-0.1037 mg-0.0194 mg Tab RxNorm: 9724487 2 Tablet(s) PO TID PRN for gas and cramping 09/17/2010 10/21/2010 Inactive Gabapentin 800 mg Tab RxNorm: 220791 1 Tablet(s) PO QD 09/16/2010 Inactive ProAir HFA 90 mcg/Actuation Aerosol Inhaler RxNorm: 628710 2 Puff(s) INH Q4H prn shortness of breath 09/15/2010 12/13/2010 Inactive gabapentin 800 mg Tab RxNorm: 310725 1 Tablet(s) PO QD 09/15/2010 Inactive Prevacid 30 mg Cap RxNorm: 318882 1 Capsule(s) PO QD 09/15/201004/12 Inactive loratadine 10 mg Tab RxNorm: 8796983 1 Tablet(s) PO QD 09/15/2010 Inactive Premarin 0.9 mg Tab RxNorm: 183812 1 Tablet(s) PO QD 09/15/201004/12 Inactive Synthroid 112 mcg Tab RxNorm: 994195 1 Tablet(s) PO QD 09/15/2010 Inactive metformin ER 500 mg 24 hr Tab RxNorm: 724067 1 Tablet(s) PO QD 08/2304/12/2011 Inactive Symbicort 160 mcg-4.5 mcg/Actuation Inhalation HFA Aer osol Inhaler RxNorm: 0866491 2 Puff(s) INH BID 09/15/2010 04/12/2011 Inactive diazepam 10 mg Tab RxNorm: 382681 1 Tablet(s) PO BID and PRN 200910/13/2010 Inactive Phentermine 37.5 mg Cap RxNorm: 880216 1 Capsule(s) PO QD 09/02/2010 11/02/2011 Inactive ProAir HFA 90 mcg/Actuation Aerosol Inhaler RxNorm: 862930 2 Puff(s) INH Q4H prn shortness of breath 08/07/2010 No Stop Date Active Premarin 0.9 mg Tab RxNorm: 532180 1 Tablet(s) PO QD 08/07/201009/14 Inactive Loratadine 10 mg Tab RxNorm: 8659367 1 Tablet(s) PO QD 08/07/2010 Inactive Lactulose 10 gram/15 mL Oral Soln RxNorm: 816431 1 Unit Dose PO QD 08/07/2010 02/12/2019 Inactive Zofran 4 mg Tab RxNorm: 000255 1 Tablet(s) PO Q4H prn nausea 2009 No Stop Date Active Gabapentin 800 mg Tab RxNorm: 571039 1 Tablet(s) PO QD 08/07/2010 Inactive Synthroid 112 mcg Tab RxNorm: 705347 1 Tablet(s) PO QD 08/07/2010 Inactive Metformin ER 500 mg 24 hr Tab RxNorm: 059919 1 Tablet(s) PO QD 07/2309/14/2010 Inactive Vitamin D 1,000 unit Tab RxNorm: 982766 1 Tablet(s) PO TID 08/07/20 10 02/12/2019 Inactive Symbicort 160 mcg-4.5 mcg/Actuation Inhalation HFA Aer osol Inhaler RxNorm: 1577338 2 Puff(s) INH BID 08/07/2010 09/14/2010 Inactive Prevacid 30 mg Cap RxNorm: 683214 1 Capsule(s) PO QD 08/07/201009/14 Inactive Metformin ER 500 mg 24 hr Tab RxNorm: 544077 1 Tablet(s) PO QD 06/2308/06/2010 Inactive Vitamin D 1,000 unit Tab RxNorm: 126797 1 Tablet(s) PO TID 07/14/2008/06/2010 Inactive Synthroid 112 mcg Tab RxNorm: 480492 1 Tablet(s) PO QD 07/14/2010 Inactive Lactulose 10 gram/15 mL Oral Soln RxNorm: 823565 1 Unit Dose PO QD 07/14/2010 08/06/2010 Inactive Levaquin 500 mg Tab RxNorm: 506396 1 Tablet(s) PO QD 07/14/201007/27 Inactive Premarin 0.9 mg Tab RxNorm: 576452 1 Tablet(s) PO QD 07/14/201008/06 Inactive ProAir HFA 90 mcg/Actuation Aerosol Inhaler RxNorm: 721732 2 Puff(s) INH Q4H prn shortness of breath 07/14/2010 No Stop Date Active Prevacid 30 mg Cap RxNorm: 579558 1 Capsule(s) PO QD 07/14/201008/06 Inactive Zofran 4 mg Tab RxNorm: 365858 1 Tablet(s) PO Q4H prn nausea 2009 No Stop Date Active Symbicort 160 mcg-4.5 mcg/Actuation Inhalation HFA Aer osol Inhaler RxNorm: 3171966 2 Puff(s) INH BID 07/14/2010 08/06/2010 Inactive Loratadine 10 mg Tab RxNorm: 7943002 1 Tablet(s) PO QD 07/14/2010 Inactive Gabapentin 800 mg Tab RxNorm: 234731 1 Tablet(s) PO QD 07/14/2010 Inactive Metformin ER 500 mg 24 hr Tab RxNorm: 337859 1 Tablet(s) PO 010 07/13/2010 Inactive Diazepam 10 mg Tab RxNorm: 528414 1 Tablet(s) PO BID and PRN 200909/06/2010 Inactive Premarin 0.9 mg Tab RxNorm: 526630 1 Tablet(s) PO QD 06/09/201007/13 Inactive Zofran 4 mg Tab RxNorm: 202866 1 Tablet(s) PO Q4H prn nausea 2009 No Stop Date Active ProAir HFA 90 mcg/Actuation Aerosol Inhaler RxNorm: 667359 2 Puff(s) INH Q4H prn shortness of breath 06/09/2010 No Stop Date Active Gabapentin 800 mg Tab RxNorm: 781732 1 Tablet(s) PO QD 06/09/2010 Inactive Loratadine 10 mg Tab RxNorm: 5856624 1 Tablet(s) PO QD 06/09/2010 Inactive Lactulose 10 gram/15 mL Oral Soln RxNorm: 145488 1 Unit Dose PO QD 06/09/2010 07/13/2010 Inactive Prevacid 30 mg Cap RxNorm: 618922 1 Capsule(s) PO QD 06/09/201007/13 Inactive Synthroid 112 mcg Tab RxNorm: 112093 1 Tablet(s) PO QD 06/09/2010 Inactive Symbicort 160 mcg-4.5 mcg/Actuation Inhalation HFA Aer osol Inhaler RxNorm: 4654878 2 Puff(s) INH BID 06/09/2010 07/13/2010 Inactive Omnicef 300 mg Cap RxNorm: 386755 2 Capsule(s) PO QD 05/07/201005/20 Inactive Metformin 500 mg Tab RxNorm: 102278 1 Tablet(s) PO QD 05/06/201005/22 Inactive ProAir HFA 90 mcg/Actuation Aerosol Inhaler RxNorm: 983550 2 Puff(s) INH Q4H prn shortness of breath 05/06/2010 No Stop Date Active lactulose 10 gram/15 mL Oral Soln RxNorm: 999573 1 Unit Dose PO QD 05/06/2010 06/10/2011 Inactive Loratadine 10 mg Tab RxNorm: 3855912 1 Tablet(s) PO QD 05/06/2010 Inactive Synthroid 112 mcg Tab RxNorm: 523722 1 Tablet(s) PO QD 05/06/2010 Inactive Symbicort 160 mcg-4.5 mcg/Actuation Inhalation HFA Aer osol Inhaler RxNorm: 8518564 2 Puff(s) INH BID 05/06/2010 06/08/2010 Inactive Gabapentin 800 mg Tab RxNorm: 639953 1 Tablet(s) PO QD 05/06/2010 Inactive 16.2 mg-0.1037 mg-0.0194 mg Tab RxNorm: 7843503 2 Tablet(s) PO TID PRN for gas and cramping 05/06/2010 05/12/2010 Inactive Zofran 4 mg Tab RxNorm: 825226 1 Tablet(s) PO Q4H prn nausea 200904/13/2010 Inactive MS Contin 60 mg Tab RxNorm: 769751 3 Tablet(s) PO BID 04/09/201004/22 Inactive Soma 350 mg Tab RxNorm: 165459 2 Tablet(s) PO TID 04/09/2010 05/08/20 10 Inactive Symbicort 160 mcg-4.5 mcg/Actuation Inhalation HFA Aer osol Inhaler RxNorm: 7139457 2 Puff(s) INH BID 04/08/2010 05/05/2010 Inactive Doxycycline 100 mg Cap RxNorm: 5349847 1 Capsule(s) PO BID 04/08/20 10 04/17/2010 Inactive Triamterene-Hydrochlorothiazide 37.5 mg-25 mg Cap RxNorm: 19 8316 1 Capsule(s) PO QAM 04/08/2010 09/04/2010 Inactive fluoxetine 40 mg Cap RxNorm: 573560 1 Capsule(s) PO QAM 04/08/2010 Inactive Morphine SR 120 mg multiphase 24 hr Cap RxNorm: 387169 1 Capsul e(s) PO 03/11/2010 04/07/2010 Inactive Endocet 10 mg-325 mg Tab RxNorm: 9676515 1-2 Tablet(s) PO Q4H CA N PAIN 03/11/2010 04/09/2010 Inactive Savella 100 mg Tab RxNorm: 364726 1 Tablet(s) PO BID 03/10/201004/09 Inactive Soma 350 mg Tab RxNorm: 664036 1 Tablet(s) PO TID prn spasm 010 04/09/2010 Inactive Savella 100 mg Tab RxNorm: 823032 1 Tablet(s) PO BID 02/03/201004/09 Inactive Aspirin 81 mg Tab RxNorm: 288177 1 Tablet(s) PO QD No Start Date Active Zyrtec 10 mg Tab RxNorm: 7348996 1 Tablet(s) PO QD No Start Date Active One Touch Ultra Test Strips RxNorm: Misc test at least t wice daily. No Start Date Active coenzyme Q10 200 mg capsule RxNorm: 257720 1 Capsule(s) PO QD No Star t Date Active One Touch Ultra Test Strips RxNorm: InVt BID Zainab t blood sugar at least twice daily. No Start Date 11/10/2010 Inactive Gabapentin 800 mg Tab RxNorm: 319276 1 Tablet(s) PO QD No Start Date 05/05/2010 Inactive Abilify 5 mg tablet RxNorm: 767388 1 Tablet(s) PO QD No Start Date Inactive Chantix 1 mg Tab RxNorm: 697789 1 Tablet(s) PO BID No Start Date 10/22 Inactive Ozempic 0.25 mg or 0.5 mg (2 mg/1.5 mL) subcutaneous p en injector RxNorm: 2663515 .25 Milligram(s) SQ QW No Start Date 07/04/2019 Inactive lancets 28 gauge RxNorm: Miscellaneous As needed for blo od glucose sticks No Start Date 08/23/2013 Inactive potassium chloride ER 20 mEq tablet,extended release RxNorm: 851996 2 Tablet(s) PO QD No Start Date 09/26/2018 Inactive Ventolin HFA 90 mcg/actuation Aerosol Inhaler RxNorm: 273310 2 Puff(s) INH Q4H prn No Start Date 01/17/2012 Inactive potassium chloride ER 20 mEq tablet,extended release RxNorm: 099212 2 Tablet(s) PO QD No Start Date 10/19/2018 Inactive Januvia 100 mg tablet RxNorm: 137719 1 Tablet(s) PO QD No Start Date 09/10/2015 Inactive Medrol (Aníbal) 4 mg Tabs in a Dose Pack RxNorm: 642458 Tablet(s) PO N o Start Date 08/09/2011 Inactive as directed Zithromax Z-Aníbal 250 mg Tab RxNorm: 212944 Tablet(s) PO No Start Date 01/25/2012 Inactive as directed vitamin B6-vitamin E-magnesium tablet RxNorm: 1 Tablet(s ) PO QHS with INH No Start Date 03/30/2018 Inactive prednisone 20 mg Tab RxNorm: 058214 1 Tablet(s) PO TID for 1wk then 1 po BID for 1wk No Start Date 01/25/2012 Inactive furosemide 40 mg tablet RxNorm: 671451 1 Tablet(s) PO QAM No Start Date 10/09/2018 Inactive Vitamin D3 1000 units Capsule RxNorm: 1 Capsule(s) PO TID No S tart Date 03/19/2015 Inactive Zofran 4 mg Tab RxNorm: 540604 1 Tablet(s) PO Q4H prn nausea No Sta rt Date 04/13/2010 Inactive Premarin 0.625 mg/g Vaginal Cream RxNorm: 457103 1 Gram (s) VAG QHS 3 times a week No Start Date 09/22/2017 Inactive oxycodone 10 mg tablet RxNorm: 2583646 1-2 Tablet(s) PO QID as n eeded for pain No Start Date 11/04/2015 Inactive Nicoderm CQ 21 mg/24 hr daily Patch RxNorm: 594896 1 Applicatio n TD QD No Start Date 08/05/2015 Inactive Topamax 50 mg tablet RxNorm: 434529 1/2 Tablet(s) PO QH S for 1wk then 1 po q HS for 1wk then 2 po q HS No Start Date 06/27/2012 Inactive Chantix Starting Month Aníbal 0.5 mg (11)-1 mg (3x14) Tab s in a Dose Pack RxNorm: 423748 Tablet(s) PO as directed No Start Date 03/01/2011 Inactive Trulicity 0.75 mg/0.5 mL subcutaneous pen injector RxNorm: 1 697955 Milliliter(s) SQ No Start Date 07/04/2019 Inactive Medrol (Aníbal) 4 mg Tabs in a Dose Pack RxNorm: 690245 Tablet(s) PO N o Start Date 01/25/2012 Inactive as directed Duragesic 100 mcg/hr Transderm Patch RxNorm: 003401 2 A pplication TD Q48H for pain No Start Date 09/05/2013 Inactive Premarin 0.9 mg Tab RxNorm: 897285 1 Tablet(s) PO QD No Start Date Inactive Zithromax Z-Aníbal 250 mg Tab RxNorm: 298517 Tablet(s) PO as direc chinmay No Start Date 01/25/2012 Inactive ondansetron 8 mg disintegrating tablet RxNorm: 503703 1 Tablet(s) PO Q6H as needed No Start Date 10/10/2018 Inactive oxycodone 15 mg tablet RxNorm: 3924525 1 Tablet(s) PO QID as nee ded for pain No Start Date 03/05/2019 Inactive ProAir HFA 90 mcg/Actuation Aerosol Inhaler RxNorm: 040217 2 Puff(s) INH Q4H prn for wheezing or shortness of breath No Start Date 12/21/2011 Inactive pravastatin 40 mg tablet RxNorm: 302803 1/2 Tablet(s) PO QOD No Sta rt Date 04/09/2015 Inactive ipratropium-albuterol 0.5 mg-3 mg(2.5 mg base)/3 mL ne bulization soln RxNorm: 2314266 1 Unit Dose INH Q4H as needed No Start Date 09/09/2016 Inactive furosemide 40 mg tablet RxNorm: 161409 1 Tablet(s) PO QAM as ne eded No Start Date 09/24/2019 Inactive Vitamin D2 oral RxNorm: 4018 oral No Start Date 03/18/2015 Inacti ve pravastatin 40 mg tablet RxNorm: 565908 1/2 Tablet(s) PO QD No Star t Date 04/09/2015 Inactive ondansetron HCl 4 mg tablet RxNorm: 388133 1 Tablet(s) PO Q4H as needed for nausea and vomiting No Start Date 04/07/2016 Inactive furosemide 40 mg tablet RxNorm: 745380 2 Tablet(s) PO QAM No Start Date 09/26/2018 Inactive gabapentin 800 mg tablet RxNorm: 349822 1/2 Tablet(s) PO BID No Sta rt Date 06/21/2017 Inactive gabapentin 800 mg tablet RxNorm: 366177 1/2 Tablet(s) PO BID No Sta rt Date 07/05/2017 Inactive ProAir HFA 90 mcg/Actuation Aerosol Inhaler RxNorm: 539264 2 Puff(s) INH Q4H prn shortness of breath No Start Date 05/05/2010 Inactive scopolamine 1 mg over 3 days transdermal patch RxNorm: 47709 2 1 Application TD behind ear. Take off after three days No Start Date 10/10/2018 Inactive Metformin 500 mg Tab RxNorm: 745783 1 Tablet(s) PO QD No Start Date 0 05/05/2010 Inactive MS Contin 200 mg Tab RxNorm: 704021 1 Tablet(s) PO BID No Start Date 08/20/2011 Inactive Belladonna-Phenobarbital 48 mg tablet,extended release RxNor m: 2 Tablet(s) PO TID No Start Date 06/04/2016 Inactive Synthroid 112 mcg Tab RxNorm: 477994 1 Tablet(s) PO QD No Start Date 05/05/2010 Inactive Zegerid 40 mg-1.1 gram Cap RxNorm: 554864 1 Capsule(s) PO QD No Sta rt Date 01/25/2012 Inactive Premarin 0.625 mg/g Vaginal Cream RxNorm: 851055 VAG In sert 1gm vaginally at bedtime 3 times weekly No Start Date 01/17/2011 Inactive potassium chloride ER 20 mEq tablet,extended release RxNorm: 913002 1 Tablet(s) PO QD No Start Date 04/24/2019 Inactive methocarbamol 750 mg tablet RxNorm: 340782 2 Tablet(s) PO TID as needed for muscle spasm No Start Date 07/08/2014 Inactive Biaxin XL Aníbal 500 mg 24 hr Tab RxNorm: 125806 Tablet(s) PO as d irected No Start Date 04/24/2013 Inactive Vitamin D3 1,000 unit tablet RxNorm: 528879 3 Tablet(s) PO QD No St art Date 06/01/2017 Inactive Morphine SR 120 mg multiphase 24 hr Cap RxNorm: 703155 1 Capsul e(s) PO BID No Start Date 04/09/2010 Inactive Silvadene 1 % topical cream RxNorm: 462110 1 Application TOP BI D to burn area No Start Date 01/31/2017 Inactive Prednisone 20 mg Tab RxNorm: 592202 1 Tablet(s) PO TID for 3days then BID for 4days No Start Date 01/25/2012 Inactive gabapentin 600 mg tablet RxNorm: 262400 1 Tablet(s) PO BID No Start Date 01/21/2015 Inactive topiramate 50 mg tablet RxNorm: 820768 1 Tablet(s) PO QHS No Start Date 03/30/2018 Inactive Januvia 100 mg tablet RxNorm: 796166 1/2 Tablet(s) PO QD No Start D ate 12/25/2015 Inactive Diazepam 10 mg Tab RxNorm: 242296 1 Tablet(s) PO BID and PRN No Sta rt Date 06/08/2010 Inactive Medication Administered No Medication Administered data Immunizations Vaccine Codes Date Status Influenza CVX: 141 09/28/2012 Pneumovax Unknown 09/28/2012 Influenza (Adult) CVX: 141 09/02/2010 Results No Results data Procedures Procedure Codes Date THER/PROPH/DIAG INJ SC/IM CPT-4: 63068 07/10/2019 METHYLPREDNISOLONE INJECTION CPT-4: J2930 07/10/2019 URINALYSIS NONAUTO W/O SCOPE CPT-4: 69259 09/06/2018 URINE CULTURE/ COLONY COUNT CPT-4: 27766 09/06/2018 DRAIN/INJECT JOINT/BURSA CPT-4: 32519 04/29/2017 TRIAMCINOLONE ACET INJ NOS CPT-4: J3301 04/29/2017 DEXAMETHASONE SODIUM PHOS CPT-4: J1100 04/29/2017 INFLUENZA ASSAY W/OPTIC CPT-4: 03144 12/01/2016 RESPIRATORY CULTURE & STAIN CPT-4: 43168 07/09/2016 TB INTRADERMAL TEST CPT-4: 16043 04/21/2016 DRAIN/INJECT JOINT/BURSA CPT-4: 21869 11/07/2013 METHYLPREDNISOLONE 40 MG INJ CPT-4: J1030 11/07/2013 TRIAMCINOLONE ACET INJ NOS CPT-4: J3301 11/07/2013 DRAIN/INJECT JOINT/BURSA CPT-4: 78590 08/08/2013 METHYLPREDNISOLONE 40 MG INJ CPT-4: J1030 08/08/2013 TRIAMCINOLONE ACET INJ NOS CPT-4: J3301 08/08/2013 FLU VACCINE 3 YRS & > IM UP 64 CPT-4: 88223 2 PNEUMOCOCCAL VACC 23 ADITYA IM CPT-4: 52271 09/28/2012 IMMUNIZATION ADMIN CPT-4: 22476 09/28/2012 IMMUNIZATION ADMIN EACH ADD CPT-4: 97456 09/28/2012 FLU VACCINE 3 YRS & > IM UP 64 CPT-4: 57017 0 IMMUNIZATION ADMIN CPT-4: 07190 09/02/2010 METHYLPREDNISOLONE INJECTION CPT-4: J2930 05/07/2010 THER/PROPH/DIAG INJ SC/IM CPT-4: 25108 05/07/2010 Vital Signs Date Vital 11/29/2019 Blood [...] 1: 122/78 Code: 8480-6 BMI: 29.5 Code: 29918-4 Heart Rate 1: 76 bpm Height: 5'4" Respiratory Rate: 20 bpm SpO2: 96% Tempera ture: 37.0 (C) / 98.6 (F) Weight: 172 lbs 01/25/2019 Blood Pressure 1: 132/80 Code: 8480-6 BMI: 29.7 Code: 07573-1 Heart Rate 1: 84 bpm Height: 5'4" Respiratory Rate: 22 bpm SpO2: 98% Tempera ture: 36.9 (C) / 98.4 (F) Weight: 173 lbs 01/03/2019 Blood Pressure 1: 116/70 Code: 8480-6 BMI: 29.5 Code: 81188-8 Heart Rate 1: 92 bpm Height: 5'4" Respiratory Rate: 24 bpm SpO2: 98% Tempera ture: 37.2 (C) / 98.9 (F) Weight: 172 lbs 11/21/2018 Blood Pressure 1: 146/82 Code: 8480-6 BMI: 28.2 Code: 70979-8 Heart Rate 1: 88 bpm Height: 5'4" Respiratory Rate: 22 bpm SpO2: 97% Tempera ture: 36.9 (C) / 98.4 (F) Weight: 164 lbs 10/27/2018 Blood Pressure 1: 122/70 Code: 8480-6 BMI: 27.6 Code: 40679-0 Heart Rate 1: 88 bpm Height: 5'4" Respiratory Rate: 20 bpm SpO2: 96% Tempera ture: 36.8 (C) / 98.3 (F) Weight: 161 lbs 10/18/2018 Blood Pressure 1: 126/70 Code: 8480-6 BMI: 28.3 Code: 25714-9 Heart Rate 1: 76 bpm Height: 5'4" Respiratory Rate: 20 bpm SpO2: 95% Tempera ture: 37.0 (C) / 98.6 (F) Weight: 165 lbs 09/27/2018 Blood Pressure 1: 124/78 Code: 8480-6 BMI: 27.1 Code: 31235-9 Heart Rate 1: 88 bpm Height: 5'4" Respiratory Rate: 20 bpm SpO2: 98% Tempera ture: 36.4 (C) / 97.6 (F) Weight: 158 lbs 09/14/2018 Blood Pressure 1: 140/72 Code: 8480-6 BMI: 26.1 Code: 23468-0 Heart Rate 1: 100 bpm Height: 5'4" Respiratory Rate: 20 bpm SpO2: 97% Tempera ture: 36.9 (C) / 98.4 (F) Weight: 152 lbs 09/06/2018 Blood Pressure 1: 156/82 Code: 8480-6 BMI: 26.3 Code: 70490-8 Heart Rate 1: 100 bpm Height: 5'4" Respiratory Rate: 28 bpm SpO2: 95% Tempera ture: 37.2 (C) / 98.9 (F) Weight: 153 lbs 08/16/2018 Blood Pressure 1: 130/78 Code: 8480-6 Heart Rate 1: 87 bpm Respiratory Rate: 24 bpm SpO2: 94% Temperature: 36.9 (C) / 98.4 (F) We ight: 147 lbs 8 oz 07/07/2018 Blood Pressure 1: 116/78 Code: 8480-6 BMI: 22.7 Code: 45739-4 Heart Rate 1: 88 bpm Height: 5'4" Respiratory Rate: 22 bpm SpO2: 98% Tempera ture: 36.5 (C) / 97.7 (F) Weight: 132 lbs 05/31/2018 Blood Pressure 1: 128/78 Code: 8480-6 BMI: 22.3 Code: 30679-1 Heart Rate 1: 92 bpm Height: 5'4" Respiratory Rate: 26 bpm SpO2: 94% Tempera ture: 36.7 (C) / 98.1 (F) Weight: 130 lbs 03/31/2018 Blood Pressure 1: 136/78 Code: 8480-6 BMI: 21.5 Code: 83853-4 Heart Rate 1: 76 bpm Height: 5'4" Respiratory Rate: 24 bpm SpO2: 95% Tempera ture: 36.8 (C) / 98.3 (F) Weight: 125 lbs 01/26/2018 Blood Pressure 1: 142/64 Code: 8480-6 BMI: 20.6 Code: 36853-7 Heart Rate 1: 90 bpm Height: 5'4" Respiratory Rate: 24 bpm SpO2: 92% Tempera ture: 36.3 (C) / 97.3 (F) Weight: 120 lbs 10/26/2017 Blood Pressure 1: 124/70 Code: 8480-6 BMI: 20.3 Code: 28516-9 Heart Rate 1: 76 bpm Height: 5'4" Respiratory Rate: 22 bpm SpO2: 94% Tempera ture: 36.7 (C) / 98.1 (F) Weight: 118 lbs 09/23/2017 Blood Pressure 1: 106/70 Code: 8480-6 BMI: 19.2 Code: 08937-6 Heart Rate 1: 76 bpm Height: 5'4" Respiratory Rate: 20 bpm SpO2: 94% Tempera ture: 36.8 (C) / 98.3 (F) Weight: 112 lbs 08/12/2017 Blood Pressure 1: 116/68 Code: 8480-6 BMI: 20.1 Code: 22727-1 Heart Rate 1: 80 bpm Height: 5'4" Respiratory Rate: 22 bpm SpO2: 95% Tempera ture: 36.8 (C) / 98.2 (F) Weight: 117 lbs 07/06/2017 Blood Pressure 1: 136/78 Code: 8480-6 BMI: 20.6 Code: 30312-2 Heart Rate 1: 76 bpm Height: 5'4" Respiratory Rate: 24 bpm SpO2: 96% Tempera ture: 36.8 (C) / 98.2 (F) Weight: 120 lbs 06/02/2017 Blood Pressure 1: 112/70 Code: 8480-6 Heart Rate 1: 92 bpm Height: 5'4" Respiratory Rate: 24 bpm SpO2: 95% Temperature: 37.0 (C) / 98.6 (F) Weight: 04/29/2017 Blood Pressure 1: 94/52 Code: 8480-6 BMI: 19.6 C ode: 91600-1 Heart Rate 1: 84 bpm Height: 5'4" [...] 92/58 Code: 8480-6 BMI: 19.2 C ode: 41326-6 Heart Rate 1: 84 bpm Height: 5'4" Respiratory Rate: 26 bpm SpO2: 95% Tempera ture: 36.7 (C) / 98.0 (F) Weight: 112 lbs 12/01/2016 Blood Pressure 1: 114/70 Code: 8480-6 BMI: 19.2 Code: 38108-3 Heart Rate 1: 96 bpm Height: 5'4" Respiratory Rate: 28 bpm SpO2: 93% Tempera ture: 38.3 (C) / 101.0 (F) Weight: 112 lbs 10/27/2016 Blood Pressure 1: 126/66 Code: 8480-6 BMI: 19.6 Code: 61837-2 Heart Rate 1: 92 bpm Height: 5'4" Respiratory Rate: 28 bpm SpO2: 90% Tempera ture: 36.8 (C) / 98.3 (F) Weight: 114 lbs 09/09/2016 Blood Pressure 1: 126/74 Code: 8480-6 Heart Rate 1: 104 bpm Height: 5'4" Respiratory Rate: 32 bpm SpO2: 88% Temperature: 37 .2 (C) / 99.0 (F) 08/26/2016 Blood Pressure 1: 134/82 Code: 8480-6 BMI: 22.0 Code: 17526-6 Heart Rate 1: 84 bpm Height: 5'4" Respiratory Rate: 24 bpm SpO2: 94% Tempera ture: 36.8 (C) / 98.3 (F) Weight: 128 lbs 05/21/2016 Blood Pressure 1: 142/80 Code: 8480-6 BMI: 21.6 Code: 09904-7 Heart Rate 1: 104 bpm Height: 5'4" Respiratory Rate: 22 bpm SpO2: 93% Tempera ture: 36.0 (C) / 96.8 (F) Weight: 126 lbs 03/25/2016 Blood Pressure 1: 126/62 Code: 8480-6 Heart Rate 1: 88 bpm Respiratory Rate: 20 bpm SpO2: 92% Temperature: 36.8 (C) / 98.3 (F) We ight: 130 lbs 01/23/2016 Blood Pressure 1: 146/82 Code: 8480-6 BMI: 24.1 Code: 06870-6 Heart Rate 1: 92 bpm Height: 5'3" Respiratory Rate: 22 bpm Temperature: 37 .1 (C) / 98.8 (F) Weight: 136 lbs 12/26/2015 Blood Pressure 1: 142/78 Code: 8480-6 BMI: 24.6 Code: 51255-0 Heart Rate 1: 78 bpm Height: 5'3" Respiratory Rate: 20 bpm Temperature: 36 .7 (C) / 98.1 (F) Weight: 139 lbs 12/03/2015 Blood Pressure 1: 126/60 Code: 8480-6 BMI: 24.6 Code: 02079-0 Heart Rate 1: 100 bpm Height: 5'3" Respiratory Rate: 28 bpm Temperature: 37 .6 (C) / 99.6 (F) Weight: 139 lbs 09/10/2015 Blood Pressure 1: 124/64 Code: 8480-6 BMI: 23.7 Code: 28996-0 Heart Rate 1: 88 bpm Height: 5'3" Respiratory Rate: 24 bpm SpO2: 95% Tempera ture: 36.4 (C) / 97.6 (F) Weight: 134 lbs 08/06/2015 Blood Pressure 1: 114/76 Code: 8480-6 BMI: 23.2 Code: 02669-8 Heart Rate 1: 88 bpm Height: 5'3" Respiratory Rate: 22 bpm Temperature: 36 .6 (C) / 97.9 (F) Weight: 131 lbs 07/18/2015 Blood Pressure 1: 144/78 Code: 8480-6 BMI: 23.7 Code: 94490-7 Heart Rate 1: 84 bpm Height: 5'3" Respiratory Rate: 20 bpm Temperature: 37 .2 (C) / 99.0 (F) Weight: 134 lbs 04/10/2015 Blood Pressure 1: 110/64 Code: 8480-6 Heart Rate 1: 80 bpm Height: Respiratory Rate: 20 bpm Temperature: 37.1 (C) / 98.8 (F) Weight: 03/05/2015 Blood Pressure 1: 136/80 Code: 8480-6 BMI: 23.9 Code: 75619-1 Heart Rate 1: 76 bpm Height: 5'3" Respiratory Rate: 24 bpm Temperature: 37 .0 (C) / 98.6 (F) Weight: 135 lbs 01/30/2015 Blood Pressure 1: 142/80 Code: 8480-6 BMI: 23.0 Code: 14486-9 Heart Rate 1: 96 bpm Height: 5'3" Respiratory Rate: 22 bpm Temperature: 36 .2 (C) / 97.2 (F) Weight: 130 lbs 01/02/2015 Blood Pressure 1: 124/70 Code: 8480-6 BMI: 23.4 Code: 38398-7 Heart Rate 1: 84 bpm Height: 5'3" Respiratory Rate: 24 bpm SpO2: 95% Tempera ture: 36.9 (C) / 98.5 (F) Weight: 132 lbs 10/03/2014 Blood Pressure 1: 106/68 Code: 8480-6 BMI: 22.5 Code: 74072-1 Heart Rate 1: 88 bpm Height: 5'3" Respiratory Rate: 24 bpm Temperature: 37 .0 (C) / 98.6 (F) Weight: 127 lbs 08/27/2014 Blood Pressure 1: 124/68 Code: 8480-6 BMI: 21.1 Code: 84542-9 Heart Rate 1: 88 bpm Height: 5'3" [...] 1: 120/70 Code: 8480-6 BMI: 19.2 Code: 65105-4 Heart Rate 1: 70 bpm Height: 5'4" Respiratory Rate: 20 bpm Temperature: 36 .9 (C) / 98.4 (F) Weight: 112 lbs 06/28/2013 Blood Pressure 1: 102 Code: 8480-6 BMI: 19.6 Code: 76661-6 Heart Rate 1: 76 bpm Height: 5'4" Respiratory Rate: 20 bpm Temperature: 36 .8 (C) / 98.2 (F) Weight: 114 lbs 05/31/2013 Blood Pressure 1: 106/70 Code: 8480-6 BMI: 18.9 Code: 90762-4 Heart Rate 1: 100 bpm Height: 5'4" Respiratory Rate: 20 bpm Temperature: 36 .4 (C) / 97.6 (F) Weight: 110 lbs 05/03/2013 Blood Pressure 1: 126/70 Code: 8480-6 BMI: 19.1 Code: 90095-4 Heart Rate 1: 88 bpm Height: 5'4" Respiratory Rate: 20 bpm Temperature: 37 .1 (C) / 98.8 (F) Weight: 111 lbs 04/25/2013 Blood Pressure 1: 114/68 Code: 8480-6 BMI: 19.4 Code: 65987-8 Heart Rate 1: 92 bpm Height: 5'4" Respiratory Rate: 24 bpm SpO2: 96% Tempera ture: 37.7 (C) / 99.8 (F) Weight: 113 lbs 03/08/2013 Blood Pressure 1: 9468 Code: 8480-6 BMI: 21.3 C ode: 76551-9 Heart Rate 1: 88 bpm Height: 5'4" Respiratory Rate: 24 bpm Temperature: 37 .0 (C) / 98.6 (F) Weight: 124 lbs 02/07/2013 Blood Pressure 1: 106/64 Code: 8480-6 BMI: 21.8 Code: 84660-0 Heart Rate 1: 84 bpm Height: 5'4" Respiratory Rate: 22 bpm Temperature: 36 .8 (C) / 98.2 (F) Weight: 127 lbs 01/10/2013 Blood Pressure 1: 122/68 Code: 8480-6 BMI: 21.6 Code: 31384-9 Heart Rate 1: 94 bpm Height: 5'4" SpO2: 94% Temperature: 36.7 (C) / 98.1 (F) Weight: 126 lbs 09/28/2012 Blood Pressure 1: 124/78 Code: 8480-6 BMI: 24.9 Code: 76699-1 Heart Rate 1: 92 bpm Height: 5'4" Respiratory Rate: 20 bpm Temperature: 36 .7 (C) / 98.1 (F) Weight: 145 lbs 06/28/2012 Blood Pressure 1: 134/80 Code: 8480-6 BMI: 24.9 Code: 19132-9 Heart Rate 1: 76 bpm Height: 5'4" Respiratory Rate: 20 bpm Temperature: 36 .8 (C) / 98.2 (F) Weight: 145 lbs 05/03/2012 Blood Pressure 1: 108/62 Code: 8480-6 BMI: 25.6 Code: 96868-3 Heart Rate 1: 88 bpm Height: 5'4" Temperature: 36.2 (C) / 97.2 (F) Weight: 149 lbs 03/01/2012 Blood Pressure 1: 124/66 Code: 8480-6 BMI: 25.1 Code: 33973-4 Heart Rate 1: 76 bpm Height: 5'4" Respiratory Rate: 20 bpm Temperature: 36 .6 (C) / 97.9 (F) Weight: 146 lbs 01/26/2012 Blood Pressure 1: 118/82 Code: 8480-6 BMI: 25.1 Code: 70701-7 Heart Rate 1: 74 bpm Height: 5'4" Temperature: 36.8 (C) / [age] (F) Weight: 146 lbs 11/03/2011 Blood Pressure 1: 126/80 Code: 8480-6 BMI: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 Appointment: Vika Renteria WPtel: [address] [place] [address] FOLLOW UP 01/28/2011 Patient Education: Patient Medication Summary Completed 01/28/2011 Patient Education: Chantix Unbranded Comp leted 01/28/2011 Appointment: Vika Renteria WPtel: [address] [place] [address] FOLLOW UP 01/14/2011 Visit Plan: Finish abx Diflucan for vagi nitis Premarin vaginal cream Smoking cessation 12/17/2010 Appointment: Vika Renteria WPtel: [address] [place] [address] Follow Up 12/17/2010 Patient Education: Patient Medication Summary Completed 12/17/2010 Appointment: Vika Renteria WPtel: [address] [place] [address] FOLLOW UP 11/06/2010 Visit Plan: Start PT Use SVNs every 4hrs Smoking Cessation Change MS Contin to 200mg q 12hrs 2010 Appointment: Vika Renteriatel: [address] [place], [place] [phone] FOLLOW UP 2010 Patient Education: Patient Medication Summary Completed 2010 Visit Plan: Prednisone taper for pain an d lungs 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 Increase fluoxetine to 60mg QD for acute stress reaction 10/02/2010 Appointment: Vika Renteria WPtel: [address] [place], [place] [phone] FOLLOW UP 10/02/2010 Patient Education: Patient Medication Summary Completed 10/02/2010 Visit Plan: Check CT Head, Cervical, Tho racic, and Lumbar Spine Cont current meds Bactrim for left toe 09/24/2010 Appointment: Vika Renteria WPtel: [address] [place], [place] [phone] CHECK UP 09/24/2010 Patient Education: Patient Medication Summary Completed 09/24/2010 Appointment: Vika Renteriatel: [address] [place], [place] [phone] FOLLOW UP 09/02/2010 Patient Education: Patient Medication Summary Completed 09/02/2010 Visit Plan: Return for 2nd epidural Obse rve right leg lesion Cont Symbicort and Spiriva 07/14/2010 Appointment: Vika Renteria WPtel: [address] [place], [place] [phone] FOLLOW UP 07/14/2010 Patient Education: Patient Medication Summary Completed 07/14/2010 Appointment: Vika Renteria WPtel: [address] [place], [place] [phone] [place] FOLLOW UP 05/27/2010 Appointment: Vika Renteria WPtel: [address] [place], [place] [phone] [place] FOLLOW UP 05/14/2010 Visit Plan: SVN with Albuterol 0.083% Q4 hrs and Q2hrs prn. Restart Spiriva Smoking Cessation 05/07/2010 Appointment: Vika Renteria WPtel: [phone] [facility] FOLLOW UP 05/07/2010 Patient Education: Patient Medication Summary Completed 05/07/2010 Appointment: Vika Renteria WPtel: [phone] [facility] ACUTE ILLNESS 04/08/2010 Patient Education: Patient Medication Summary Completed 04/08/2010 Referral: Kyle Billings WPtel: [phone] [facility] [place] Referral Completed Referral: Jaylan Matute WPtel: [address] [facility] [address] [id number] [place] Referral Initiated Referral: Kyle Billings WPtel: [phone] [facility] [place] Referral Appointment Requested Instructions Comment . [...]
--- OUTSIDE RECORDS SUMMARY | 2020-04-24 22:27 | XMS REPORT | CCD ---
Author Author Yana Renteria D.O. Organization [facility] Address [address] [place] [address] Phone Care Team Providers Care Qualitative Executive Researcher Name Role Phone Vika Renteria D.O., PP Unavailable CCM Unavailable Summary Purpose Interface Exchange Insurance Providers Payer name Policy type / Coverage type Covered constitution party ID Effective Begin Date Effective End Date [employer] [facility] Medicaid [id number] 2018 U nknown Family History Family History data not found Social History Social History Element Codes Description Effective Dates Marital status Unknown 06/28/[address]: [id number] Currently smokes tobacco 05/2013 Allergies, Adverse Reactions, [...] Instructions hydroxyzine HCl 50 mg tablet RxNorm: 709938 1 Tablet(s) Oral two times a day to take with morphine--replaces benadryl 03/12/2020 04/11/2020 Active prednisone 1 mg tablet RxNorm: 222601 1 Tablet(s) Oral two times a day to take with hydroxyzine 03/12/2020 No Stop Date Active prednisolone 5 mg tablet RxNorm: 475028 1 Tablet(s) Oral two ti mes a day 02/22/2020 03/23/2020 Active prednisolone 5 mg tablet RxNorm: 371590 1 Tablet(s) Oral two ti mes a day 02/22/2020 02/21/2020 Inactive Symbicort 160 mcg-4.5 mcg/actuation HFA aerosol inhaler RxNo rm: 2711022 INHALE TWO PUFFS BY MOUTH TWICE A DAY 02/19/2020 No Stop Date Active Daliresp 500 mcg tablet RxNorm: 8675016 TAKE ONE TABLET BY MOUTH DAILY 02/19/2020 No Stop Date Active prednisone 20 mg tablet RxNorm: 124923 1 Tablet(s) Oral two yumi es a day 02/13/2020 02/20/2020 Inactive oxycodone 30 mg tablet RxNorm: 1314970 1 Tablet(s) Oral four times a day replaces MS Contin 02/13/2020 02/22/2020 Inactive levothyroxine 25 mcg tablet RxNorm: 461352 TAKE ONE TAB LET BY MOUTH EVERY MORNING 02/09/2020 No Stop Date Active MS Contin 200 mg tablet,extended release RxNorm: 210458 1 Tablet(s) Oral two times a day 02/01/2020 03/01/2020 Inactive cyclobenzaprine 10 mg tablet RxNorm: 118392 TAKE ONE TA BLET BY MOUTH THREE TIMES A DAY NEEDED 01/31/2020 No Stop Date Active Premarin 0.45 mg tablet RxNorm: 199607 TAKE ONE TABLET BY MOUTH DAILY 01/31/2020 No Stop Date Active metformin 500 mg tablet RxNorm: 063573 1 Tablet(s) Oral QD 01/31/20 20 04/29/2020 Active gabapentin 300 mg capsule RxNorm: 117771 TAKE ONE CAPSULE BY [facility] TWICE A DAY 01/16/2020 No Stop Date Active potassium chloride ER 20 mEq tablet,extended release RxNorm: 779654 TAKE ONE TABLET BY MOUTH DAILY 01/08/2020 07/05/2020 Active ProAir HFA 90 mcg/actuation aerosol inhaler RxNorm: 352592 INHALE ONE PUFF BY MOUTH EVERY 4 HOURS FOR WHEEZING OR FOR SHORTNESS OF BREATH 01/04/2020 No Stop Date Active metformin 500 mg tablet RxNorm: 983416 1 Tablet(s) Oral QD 01/04/20 20 01/30/2020 Inactive MS Contin 200 mg tablet,extended release RxNorm: 751199 1 Tablet(s) Oral two times a day 01/02/2020 01/31/2020 Inactive Pulmicort 1 mg/2 mL suspension for nebulization RxNorm: 6168 19 USE ONE VIAL VIA NEBULIZER BY MOUTH TWICE A DAY 12/21/2019 No Stop Date Active furosemide 40 mg tablet RxNorm: 783294 TAKE ONE TABLET BY MOUTH EVERY MORNING NEEDED 12/20/2019 No Stop Date Active levothyroxine 25 mcg tablet RxNorm: 246248 TAKE ONE TAB LET BY MOUTH EVERY MORNING 12/20/2019 02/08/2020 Inactive MS Contin 200 mg tablet,extended release RxNorm: 544387 1 Tablet(s) Oral two times a day 12/05/2019 01/01/2020 Inactive Medrol (Aníbal) 4 mg tablets in a dose pack RxNorm: 600675 6 Tablet(s) Oral QD --then as directed 11/30/2019 12/05/2019 Inactive MS Contin 200 mg tablet,extended release RxNorm: 565383 1 Tablet(s) Oral two times a day 11/29/2019 12/04/2019 Inactive cyclobenzaprine 10 mg tablet RxNorm: 454456 TAKE ONE TA BLET BY MOUTH THREE TIMES A DAY NEEDED 11/21/2019 01/30/2020 Inactive MS Contin 200 mg tablet,extended release RxNorm: 981865 1 Tablet(s) Oral two times a day replaces 100mg dose 11/03/2019 11/02/2019 Inactive MS Contin 200 mg tablet,extended release RxNorm: 562005 1 Tablet(s) Oral two times a day replaces 100mg dose 11/03/2019 11/29/2019 Inactive ferrous sulfate 325 mg (65 mg iron) tablet RxNorm: 790029 1 Tab let(s) Oral QD 10/30/2019 No Stop Date Active MS Contin 100 mg tablet,extended release RxNorm: 505387 1 Table t(s) Oral QD 10/30/2019 10/29/2019 Inactive MS Contin 100 mg tablet,extended release RxNorm: 446509 1 Table t(s) Oral QD 10/30/2019 11/02/2019 Inactive Relistor 150 mg tablet RxNorm: 2801139 TAKE THREE TABLETS BY [facility]ENOIT TH DAILY 10/25/2019 No Stop Date Active pantoprazole 40 mg tablet,delayed release RxNorm: 283165 1 Tabl et(s) Oral QD 10/25/2019 No Stop Date Active Minipress 2 mg capsule RxNorm: 975704 1 Capsule(s) Oral QAM and 3 at bedtime 10/25/2019 No Stop Date Active Lancets, Super Thin RxNorm: 1 Unit Dose Miscellaneous QD 9 11/27/2020 Active Cymbalta 60 mg capsule,delayed release RxNorm: 210459 1 Capsule (s) Oral QAM 10/25/2019 No Stop Date Active Cymbalta 30 mg capsule,delayed release RxNorm: 386551 1 Capsule (s) Oral QAM 10/25/2019 No Stop Date Active oxycodone 15 mg tablet RxNorm: 1276342 1 Tablet(s) Oral four times a day as needed for pain 10/25/2019 11/28/2019 Inactive metformin 500 mg tablet RxNorm: 966296 1 Tablet(s) Oral QD 10/25/20 19 01/03/2020 Inactive levothyroxine 25 mcg tablet RxNorm: 400917 1 Tablet(s) Oral QAM 02/201912/19/2019 Inactive levothyroxine 25 mcg tablet RxNorm: 186193 1 Tablet(s) Oral QAM 02/201910/24/2019 Inactive MS Contin 100 mg tablet,extended release RxNorm: 279934 1 Tablet(s) Oral two times a day replaces fentanyl 10/25/2019 10/25/2019 Inactive Premarin 0.45 mg tablet RxNorm: 594362 TAKE ONE TABLET BY MOUTH DAILY 10/24/2019 01/30/2020 Inactive Duragesic 100 mcg/hr transdermal patch RxNorm: 359788 2 Application TD Q48H for pain 10/18/2019 10/24/2019 Inactive gabapentin 300 mg capsule RxNorm: 654421 TAKE ONE CAPSULE BY MO UTH TWICE A DAY 10/16/2019 01/15/2020 Inactive cyclobenzaprine 10 mg tablet RxNorm: 441864 TAKE ONE TA BLET BY MOUTH THREE TIMES A DAY NEEDED 09/27/2019 11/20/2019 Inactive Relistor 150 mg tablet RxNorm: 6618898 TAKE THREE TABLETS BY BENOIT TH DAILY 09/25/2019 10/24/2019 Inactive ProAir HFA 90 mcg/actuation aerosol inhaler RxNorm: 963719 INHALE ONE PUFF BY MOUTH EVERY 4 HOURS FOR WHEEZING OR FOR SHORTNESS OF BREATH 09/25/2019 01/03/2020 Inactive furosemide 40 mg tablet RxNorm: 291643 1 Tablet(s) Oral QAM as needed 09/25/2019 09/25/2019 Inactive oxycodone 15 mg tablet RxNorm: 9807121 1 Tablet(s) PO QID as nee ded for pain 09/21/2019 10/24/2019 Inactive Duragesic 100 mcg/hr transdermal patch RxNorm: 314626 2 Application TD Q48H for pain 09/19/2019 10/17/2019 Inactive Daliresp 500 mcg tablet RxNorm: 8153970 1 Tablet(s) Oral QD 019 02/18/2020 Inactive Relistor 150 mg tablet RxNorm: 9504907 TAKE THREE TABLETS BY BENOIT TH DAILY 07/25/2019 07/30/2019 Inactive cyclobenzaprine 10 mg tablet RxNorm: 524829 TAKE ONE TA BLET BY MOUTH THREE TIMES A DAY NEEDED 07/25/2019 09/22/2019 Inactive potassium chloride ER 20 mEq tablet,extended release RxNorm: 844491 TAKE ONE TABLET BY MOUTH DAILY 07/25/2019 01/07/2020 Inactive fluoxetine 40 mg capsule RxNorm: 368562 TAKE ONE CAPSULE BY BENOIT TH EVERY MORNING 07/11/2019 10/24/2019 Inactive Medrol (Aníbal) 4 mg tablets in a dose pack RxNorm: 558861 6 Tablet(s) PO QD --then as directed 07/10/2019 07/15/2019 Inactive omeprazole 40 mg capsule,delayed release RxNorm: 073114 1 Capsule(s) PO QD for stomach TAKE ONE CAPSULE BY MOUTH DAILY 07/10/2019 10/24/2019 Inactive Augmentin 875 mg-125 mg tablet RxNorm: 108298 1 Tablet(s) PO BID 07/16/2019 Inactive Trulicity 0.75 mg/0.5 mL subcutaneous pen injector RxNorm: 1 344282 0.75 Milliliter(s) SQ weekly 07/05/2019 10/24/2019 Inactive Compazine 10 mg tablet RxNorm: 558161 TAKE ONE TABLET B Y MOUTH FOUR TIMES A DAY NEEDED FOR NAUSEA 06/20/2019 07/19/2019 Inactive ProAir HFA 90 mcg/actuation aerosol inhaler RxNorm: 593200 INHALE ONE PUFF BY MOUTH EVERY 4 HOURS FOR WHEEZING OR FOR SHORTNESS OF BREATH 06/20/2019 06/23/2019 Inactive Daliresp 500 mcg tablet RxNorm: 3651247 TAKE ONE TABLET BY MOUTH DAILY 06/12/2019 09/10/2019 Inactive exhphges-cssevpggn-hzfcqviao 3.5 mg/mL-10,000 unit/mL- 1 % ear solution RxNorm: 835320 4 Drop(s) otic (ear) TID to left ear 06/05/2019 10/24/2019 Inac tive furosemide 40 mg tablet RxNorm: 023942 TAKE ONE TABLET BY MOUTH EVERY MORNING 05/26/2019 07/09/2019 Inactive Duragesic 100 mcg/hr transdermal patch RxNorm: 166806 2 Application TD Q48H for pain 05/16/2019 06/14/2019 Inactive oxycodone 15 mg tablet RxNorm: 0692086 1 Tablet(s) PO QID as nee ded for pain 05/10/2019 09/20/2019 Inactive doxycycline hyclate 100 mg capsule RxNorm: 0341064 1 Capsule(s) PO BID 05/03/2019 05/12/2019 Inactive prednisone 20 mg tablet RxNorm: 264669 1 Tablet(s) PO T ID for 3 days then 1 po BID for 3 days then one daily for 3 days 05/03/2019 07/11/2019 Inactiv e Ozempic 0.25 mg or 0.5 mg (2 mg/1.5 mL) subcutaneous p en injector RxNorm: 7147019 0.5 Milligram(s) SQ QW 05/03/2019 07/09/2019 Inactive fluconazole 100 mg tablet RxNorm: 740467 1 Tablet(s) PO QD 05/03/2005/07/2019 Inactive Premarin 0.45 mg tablet RxNorm: 505900 TAKE ONE TABLET BY MOUTH DAILY 05/03/2019 10/23/2019 Inactive potassium chloride ER 20 mEq tablet,extended release RxNorm: 005061 1 Tablet(s) PO QD 04/27/2019 07/25/2019 Inactive potassium chloride ER 20 mEq tablet,extended release RxNorm: 324666 1 Tablet(s) PO QD 04/25/2019 04/26/2019 Inactive Compazine 10 mg tablet RxNorm: 591129 1 Tablet(s) PO QID as nee ded for nausea 04/25/2019 05/04/2019 Inactive ProAir HFA 90 mcg/actuation aerosol inhaler RxNorm: 258961 INHALE ONE PUFF BY MOUTH EVERY 4 HOURS FOR WHEEZING OR FOR SHORTNESS OF BREATH 04/12/2019 06/10/2019 Inactive Medrol (Aníbal) 4 mg tablets in a dose pack RxNorm: 508627 6 Tablet(s) PO QD --then as directed 04/11/2019 04/16/2019 Inactive Symbicort 160 mcg-4.5 mcg/actuation HFA aerosol inhaler RxNo rm: 7231467 2 Puff(s) INH BID 04/10/2019 10/06/2019 Inactive levothyroxine 50 mcg tablet RxNorm: 526337 1 Tablet(s) PO QD 201810/24/2019 Inactive gabapentin 300 mg capsule RxNorm: 156549 1 Capsule(s) PO BID 201810/02/2019 Inactive Symbicort 160 mcg-4.5 mcg/actuation HFA aerosol inhaler RxNo rm: 6646966 2 Puff(s) INH BID 04/06/2019 04/09/2019 Inactive oxycodone 15 mg tablet RxNorm: 6036156 1 Tablet(s) PO QID as nee ded for pain 04/05/2019 05/09/2019 Inactive levothyroxine 50 mcg tablet RxNorm: 990678 1 Tablet(s) PO QD 201804/09/2019 Inactive furosemide 40 mg tablet RxNorm: 205093 TAKE ONE TABLET BY MOUTH EVERY MORNING 03/21/2019 04/19/2019 Inactive levothyroxine 50 mcg tablet RxNorm: 383097 TAKE ONE TABLET BY M OUTH DAILY 03/21/2019 03/27/2019 Inactive Duragesic 100 mcg/hr transdermal patch RxNorm: 473706 2 Application TD Q48H for pain 03/13/2019 04/11/2019 Inactive oxycodone 15 mg tablet RxNorm: 2128820 1 Tablet(s) PO QID as nee ded for pain 03/06/2019 04/04/2019 Inactive Relistor 150 mg tablet RxNorm: 5184415 3 Tablet(s) PO QD 02/28/2019 0 05/28/2019 Inactive cyclobenzaprine 10 mg tablet RxNorm: 943293 1 Tablet(s) PO TID as needed 02/28/2019 05/28/2019 Inactive phentermine 37.5 mg tablet RxNorm: 910570 1 Tablet(s) PO QAM 201803/15/2019 Inactive Duragesic 100 mcg/hr transdermal patch RxNorm: 479339 2 Application TD Q48H for pain 02/09/2019 03/10/2019 Inactive Daliresp 500 mcg tablet RxNorm: 8834226 TAKE ONE TABLET BY MOUTH DAILY 01/31/2019 05/30/2019 Inactive Premarin 0.45 mg tablet RxNorm: 689117 1 Tablet(s) PO QD 01/31/2019 0 04/30/2019 Inactive fluoxetine 40 mg capsule RxNorm: 134990 Capsule(s) TAKE ONE CAPSULE BY MOUTH EVERY MORNING 01/31/2019 04/30/2019 Inactive levothyroxine 50 mcg tablet RxNorm: 193428 1 Tablet(s) PO QD 201804/10/2019 Inactive follow up in 3 weeks levothyroxine 50 mcg tablet RxNorm: 195177 1 Tablet(s) PO QD 201801/25/2019 Inactive follow up in 3 weeks potassium chloride ER 20 mEq tablet,extended release RxNorm: 909887 2 Tablet(s) PO BID 01/23/2019 01/08/2020 Inactive Synthroid 50 mcg tablet RxNorm: 017785 TAKE ONE TABLET BY MOUTH DAILY 01/16/2019 10/24/2019 Inactive potassium chloride ER 20 mEq tablet,extended release RxNorm: 868536 2 Tablet(s) PO BID 01/04/2019 01/22/2019 Inactive ProAir HFA 90 mcg/actuation aerosol inhaler RxNorm: 560389 INHALE ONE PUFF BY MOUTH EVERY 4 HOURS FOR WHEEZING OR SHORTNESS OF BREATH 01/04/201902/20 Inactive Request already responded to by other me ans (e.g. phone or fax) ProAir HFA 90 mcg/actuation aerosol inhaler RxNorm: 1222380 INHALE ONE PUFF BY MOUTH EVERY 4 HOURS FOR WHEEZING OR SHORTNESS OF BREATH 01/02/201912/23 Inactive gabapentin 300 mg capsule RxNorm: 846952 TAKE ONE CAPSULE BY MO UTH TWICE A DAY 12/30/2018 04/06/2019 Inactive furosemide 40 mg tablet RxNorm: 584708 1 Tablet(s) PO QAM 12/26/2018 02/23/2019 Inactive Compazine 10 mg tablet RxNorm: 477596 1 Tablet(s) PO QID as nee ded for nausea 12/07/2018 12/16/2018 Inactive metolazone 2.5 mg tablet RxNorm: 571386 TAKE ONE TABLET BY MOUT H EVERY MORNING 12/05/2018 01/03/2019 Inactive metformin ER 500 mg tablet,extended release 24 hr RxNorm: 86 0975 TAKE ONE TABLET BY MOUTH DAILY 12/05/2018 01/31/2020 Inactive Synthroid 50 mcg tablet RxNorm: 058245 1 Tablet(s) PO QD 11/25/2018 0 01/03/2019 Inactive DC any other synthroid strengths. Should be 50mcg only cyclobenzaprine 10 mg tablet RxNorm: 845018 TAKE ONE TA BLET BY MOUTH THREE TIMES A DAY NEEDED 11/09/2018 02/06/2019 Inactive metolazone 2.5 mg tablet RxNorm: 841585 1 Tablet(s) PO QAM repl aces 5mg dose 11/02/2018 12/01/2018 Inactive potassium chloride ER 20 mEq tablet,extended release RxNorm: 717370 2 Tablet(s) PO QD 2018 01/02/2019 Inactive Compazine 10 mg tablet RxNorm: 970193 1 Tablet(s) PO QID as nee ded for nausea 10/18/2018 12/07/2018 Inactive furosemide 40 mg tablet RxNorm: 259957 1 Tablet(s) PO QAM 10/12/2018 12/10/2018 Inactive ondansetron 8 mg disintegrating tablet RxNorm: 761621 1 Tablet(s) PO Q6H as needed 10/11/2018 10/17/2018 Inactive scopolamine 1 mg over 3 days transdermal patch RxNorm: 21760 2 1 Application TD behind ear. Take off after three days 10/11/2018 01/02/2019 Inactive furosemide 40 mg tablet RxNorm: 743504 1 Tablet(s) PO QAM 10/10/2018 12/26/2018 Inactive metolazone 5 mg tablet RxNorm: 783524 1 Tablet(s) PO QAM 10/06/2018 1 01/03/2018 Inactive metolazone 5 mg tablet RxNorm: 426149 1 Tablet(s) PO QAM 10/06/2018 1 12/05/2017 Inactive Xtampza ER 36 mg capsule sprinkle RxNorm: 5356036 1 Capsule(s) P O BID 10/05/2018 01/02/2019 Inactive Xtampza ER 36 mg capsule sprinkle RxNorm: 5134691 1 Capsule(s) P O BID 10/05/2018 02/12/2019 Inactive omeprazole 40 mg capsule,delayed release RxNorm: 083704 TAKE ONE CAPSULE BY MOUTH DAILY 10/03/2018 12/31/2018 Inactive Duragesic 100 mcg/hr transdermal patch RxNorm: 257115 2 Application TD Q48H for pain 09/30/2018 10/29/2018 Inactive Synthroid 50 mcg tablet RxNorm: 715272 1 Tablet(s) PO QD 09/29/2018 0 11/25/2018 Inactive DC any other synthroid strengths. Should be 50mcg only Synthroid 50 mcg tablet RxNorm: 739595 1 Tablet(s) PO QD 09/29/2018 1 11/28/2017 Inactive furosemide 40 mg tablet RxNorm: 558814 2 Tablet(s) PO Q AM for 1 week then every other day for 2 weeks 09/27/2018 10/12/2018 Inactive fluoxetine 40 mg capsule RxNorm: 457585 2 Capsule(s) PO QD 09/27/20 18 10/17/2018 Inactive potassium chloride ER 20 mEq tablet,extended release RxNorm: 627565 2 Tablet(s) PO QD for 1 week then every other day for 2 weeks 09/27/2018 2018 Inactive ProAir HFA 90 mcg/actuation aerosol inhaler RxNorm: 4445821 INHALE ONE PUFF BY MOUTH EVERY 4 HOURS FOR WHEEZING OR SHORTNESS OF BREATH 09/26/201811/23 Inactive Synthroid 75 mcg tablet RxNorm: 345449 1 Tablet(s) PO QD 09/09/2018 1 Inactive Synthroid 75 mcg tablet RxNorm: 580577 1 Tablet(s) PO QD 09/09/2018 1 11/28/2017 Inactive furosemide 40 mg tablet RxNorm: 804445 1 Tablet(s) PO QD 09/06/2018 1 Inactive potassium chloride ER 20 mEq tablet,extended release RxNorm: 190959 1 Tablet(s) PO QD 09/06/2018 09/19/2018 Inactive Duragesic 100 mcg/hr transdermal patch RxNorm: 267989 2 Application TD Q48H for pain 08/30/2018 09/28/2018 Inactive gabapentin 300 mg capsule RxNorm: 304069 TAKE ONE CAPSULE BY [facility] TWICE A DAY 08/23/2018 12/20/2018 Inactive Daliresp 500 mcg tablet RxNorm: 6543073 TAKE ONE TABLET BY MOUTH DAILY 08/23/2018 01/19/2019 Inactive Pulmicort 1 mg/2 mL suspension for nebulization RxNorm: 6168 19 USE ONE VIAL VIA NEBULIZER BY MOUTH TWICE A DAY 08/23/2018 07/11/2019 Inactive Synthroid 88 mcg tablet RxNorm: 550506 1 Tablet(s) PO QD 08/19/2018 1 Inactive Medrol (Aníbal) 4 mg tablets in a dose pack RxNorm: 077313 Tablet(s) PO take as directed 08/16/2018 09/05/2018 Inactive Relistor 150 mg tablet RxNorm: 1190210 3 Tablet(s) PO QD 08/16/2018 1 Inactive Zithromax Z-Aníbal 250 mg tablet RxNorm: 112748 Tablet(s) PO take as directed 08/16/2018 09/05/2018 Inactive cyclobenzaprine 10 mg tablet RxNorm: 763622 1 Tablet(s) PO TID as needed 08/16/2018 11/08/2018 Inactive Synthroid 88 mcg tablet RxNorm: 465986 1 Tablet(s) PO Q D NEEDS UPDATED LABS BEFORE FURTHER REFILLS 08/08/2018 08/19/2018 Inactive Premarin 0.45 mg tablet RxNorm: 496360 1 Tablet(s) PO QD 08/03/2018 0 01/31/2019 Inactive fluoxetine 20 mg capsule RxNorm: 823102 TAKE ONE CAPSULE BY BENOIT TH DAILY 08/03/2018 09/26/2018 Inactive Xtampza ER 36 mg capsule sprinkle RxNorm: 4059121 1 Capsule(s) P O BID 08/03/2018 09/01/2018 Inactive metformin ER 500 mg tablet,extended release 24 hr RxNorm: 86 0975 1 Tablet(s) PO QD 08/03/2018 10/31/2018 Inactive Symbicort 160 mcg-4.5 mcg/actuation HFA aerosol inhaler RxNo rm: 2398057 2 Puff(s) INH BID 08/03/2018 01/29/2019 Inactive Duragesic 100 mcg/hr transdermal patch RxNorm: 841288 2 Application TD Q48H for pain 07/29/2018 08/27/2018 Inactive ProAir HFA 90 mcg/actuation aerosol inhaler RxNorm: 910876 INHALE TWO PUFFS BY MOUTH EVERY 4 HOURS FOR WHEEZING OR SHORTNESS OF BREATH 07/27/201802/2018 Inactive Relistor 150 mg tablet RxNorm: 4479997 3 Tablet(s) PO QD 07/20/2018 0 08/15/2018 Inactive metformin ER 500 mg tablet,extended release 24 hr RxNorm: 86 0975 TAKE ONE TABLET BY MOUTH DAILY 07/08/2018 08/02/2018 Inactive fluoxetine 40 mg capsule RxNorm: 590815 TAKE ONE CAPSULE BY BENOIT TH EVERY MORNING 07/08/2018 10/05/2018 Inactive Xtampza ER 18 mg capsule sprinkle RxNorm: 1200331 1 Capsule(s) P O BID 07/08/2018 08/02/2018 Inactive Relistor 150 mg tablet RxNorm: 1844398 3 Tablet(s) PO QD 07/08/2018 0 07/12/2018 Inactive Synthroid 88 mcg tablet RxNorm: 119134 1 Tablet(s) PO Q D NEEDS UPDATED LABS BEFORE FURTHER REFILLS 06/23/2018 07/07/2018 Inactive fluoxetine 40 mg capsule RxNorm: 963567 TAKE ONE CAPSULE BY BENOIT TH EVERY MORNING 06/15/2018 09/26/2018 Inactive orphenadrine citrate ER 100 mg tablet,extended release RxNor m: 902621 TAKE ONE TABLET BY MOUTH TWICE A DAY FOR MUSCLE SPASM 06/15/2018 08/15/2018 [place] [facility] Duragesic 100 mcg/hr transdermal patch RxNorm: 347911 2 Application TD Q48H for pain 05/30/2018 06/28/2018 Inactive ProAir HFA 90 mcg/actuation aerosol inhaler RxNorm: 833190 INHALE TWO PUFFS BY MOUTH EVERY 4 HOURS FOR WHEEZING OR SHORTNESS OF BREATH 05/19/201803/2018 Inactive Chantix Continuing Month Box 1 mg tablet RxNorm: 351512 TAKE ONE TABLET BY MOUTH TWICE A DAY 05/19/2018 08/15/2018 Inactive oxycodone 10 mg tablet RxNorm: 0313472 1-2 Tablet(s) PO QID as n eeded for pain 05/19/2018 07/07/2018 Inactive gabapentin 300 mg capsule RxNorm: 443246 TAKE ONE CAPSULE BY MO UTH TWICE A DAY 05/18/2018 07/16/2018 Inactive ProAir HFA 90 mcg/actuation aerosol inhaler RxNorm: 535909 INHALE TWO PUFFS BY MOUTH EVERY 4 HOURS FOR WHEEZING OR SHORTNESS OF BREATH 05/04/201804/23 Inactive Augmentin 500 mg-125 mg tablet RxNorm: 020253 1 Tablet(s) PO BID 05/03/2018 Inactive oxycodone 10 mg tablet RxNorm: 0423470 1-2 Tablet(s) PO QID as n eeded for pain 04/21/2018 05/18/2018 Inactive Synthroid 88 mcg tablet RxNorm: 979722 1 Tablet(s) PO QD 04/15/2018 0 08/08/2018 Inactive Symbicort 160 mcg-4.5 mcg/actuation HFA aerosol inhaler RxNo rm: 9449457 2 Puff(s) INH BID 04/15/2018 04/10/2019 Inactive Premarin 0.45 mg tablet RxNorm: 266968 1 Tablet(s) PO QD 04/15/2018 0 08/03/2018 Inactive ProAir HFA 90 mcg/actuation aerosol inhaler RxNorm: 163087 2 Puff(s) INH Q4H prn for wheezing or shortness of breath 04/15/2018 05/03/2018 Inactive metformin ER 500 mg tablet,extended release 24 hr RxNorm: 86 0975 1 Tablet(s) PO QD 04/11/2018 07/07/2018 Inactive omeprazole 40 mg capsule,delayed release RxNorm: 952103 TAKE ONE CAPSULE BY MOUTH DAILY 04/10/2018 06/08/2018 Inactive Synthroid 88 mcg tablet RxNorm: 584964 1 Tablet(s) PO QD 04/04/2018 0 04/14/2018 Inactive Synthroid 88 mcg tablet RxNorm: 499826 1 Tablet(s) PO QD 04/04/2018 0 04/03/2018 Inactive orphenadrine citrate ER 100 mg tablet,extended release RxNor m: 975833 1 Tablet(s) PO BID for muscle spasm 04/04/2018 05/03/2018 Inactive metformin ER 500 mg tablet,extended release 24 hr RxNorm: 86 0975 1 Tablet(s) PO QD NEEDS UPDATED LABS 03/31/2018 04/11/2018 Inactive doxycycline hyclate 100 mg capsule RxNorm: 6357297 1 Capsule(s) PO BID 03/31/2018 04/09/2018 Inactive prednisone 20 mg tablet RxNorm: 760681 3 Tablet(s) PO T ID for 3 days then 1 po BID for 3 days then one daily for 3 days 03/31/2018 07/06/2018 Inactiv e Chantix Continuing Month Box 1 mg tablet RxNorm: 460354 TAKE ONE TABLET BY MOUTH TWICE A DAY 03/25/2018 03/30/2018 Inactive oxycodone 10 mg tablet RxNorm: 2214408 1-2 Tablet(s) PO QID as n eeded for pain 03/21/2018 04/20/2018 Inactive Daliresp 500 mcg tablet RxNorm: 4290942 1 Tablet(s) PO QD 03/15/2018 08/22/2018 Inactive metformin ER 500 mg tablet,extended release 24 hr RxNorm: 86 0975 1 Tablet(s) PO QD NEEDS UPDATED LABS 03/14/2018 03/31/2018 Inactive nystatin 100,000 unit/mL oral suspension RxNorm: 276629 5 Chio liter(s) PO QID 03/02/2018 03/15/2018 Inactive nystatin 100,000 unit/mL oral suspension RxNorm: 216740 5 Chio liter(s) PO QID 03/02/2018 03/01/2018 Inactive oxycodone 10 mg tablet RxNorm: 6159200 1-2 Tablet(s) PO QID as n eeded for pain 02/16/2018 03/20/2018 Inactive fluoxetine 20 mg capsule RxNorm: 842945 1 Capsule(s) PO QD 02/15/20 18 08/02/2018 Inactive metformin ER 500 mg tablet,extended release 24 hr RxNorm: 86 0975 1 Tablet(s) PO QD Needs updated labs 02/14/2018 03/14/2018 Inactive cefdinir 300 mg capsule RxNorm: 664098 1 Capsule(s) PO BID 01/27/20 18 02/04/2018 Inactive orphenadrine citrate ER 100 mg tablet,extended release RxNor m: 189584 1 Tablet(s) PO BID for muscle spasm 01/26/2018 04/04/2018 Inactive gabapentin 300 mg capsule RxNorm: 659563 1 Capsule(s) PO BID 201704/17/2018 Inactive oxycodone 10 mg tablet RxNorm: 2738511 1-2 Tablet(s) PO QID as n eeded for pain 01/17/2018 02/15/2018 Inactive Duragesic 100 mcg/hr transdermal patch RxNorm: 117708 2 Application TD Q48H for pain 01/17/2018 02/15/2018 Inactive gabapentin 300 mg capsule RxNorm: 251935 TAKE ONE CAPSULE BY MO UTH TWICE A DAY 12/20/2017 01/18/2018 Inactive fluoxetine 40 mg capsule RxNorm: 556502 TAKE ONE CAPSULE BY BENOIT TH EVERY MORNING 12/15/2017 03/14/2018 Inactive OneTouch Ultra Test strips RxNorm: TEST DAILY 11/04/2017 02/01/2018 Inactive gabapentin 300 mg capsule RxNorm: 034985 1 Capsule(s) P O TID replaces BID dosing 10/26/2017 02/22/2018 Inactive oxycodone 10 mg tablet RxNorm: 2389513 1-2 Tablet(s) PO QID as n eeded for pain 10/18/2017 01/16/2018 Inactive Duragesic 100 mcg/hr transdermal patch RxNorm: 541881 2 Application TD Q48H for pain 10/18/2017 11/16/2017 Inactive gabapentin 300 mg capsule RxNorm: 115648 1 Capsule(s) PO BID 201610/25/2017 Inactive Abilify 5 mg tablet RxNorm: 554014 1 Tablet(s) PO QAM 09/23/201702/2017 Inactive gabapentin 300 mg capsule RxNorm: 134288 1 Capsule(s) PO BID 201610/17/2017 Inactive oxycodone 10 mg tablet RxNorm: 7608071 1-2 Tablet(s) PO QID as n eeded for pain 09/15/2017 10/17/2017 Inactive Duragesic 100 mcg/hr transdermal patch RxNorm: 872523 2 Application TD Q48H for pain 09/15/2017 10/14/2017 Inactive Duragesic 100 mcg/hr transdermal patch RxNorm: 245606 2 Application TD Q48H for pain 09/15/2017 10/24/2019 Inactive oxycodone 10 mg tablet RxNorm: 8645108 1-2 Tablet(s) PO QID as n eeded for pain 09/15/2017 08/15/2018 Inactive Daliresp 500 mcg tablet RxNorm: 7952741 1 Tablet(s) PO QD 09/06/2017 03/15/2018 Inactive Ventolin HFA 90 mcg/actuation aerosol inhaler RxNorm: 230174 2 Puff(s) INH Q4H as needed 09/02/2017 05/19/2018 Inactive oxycodone 10 mg tablet RxNorm: 8694424 1-2 Tablet(s) PO QID as n eeded for pain 08/17/2017 09/14/2017 Inactive Duragesic 100 mcg/hr transdermal patch RxNorm: 132392 2 Application TD Q48H for pain 08/17/2017 09/14/2017 Inactive fluoxetine 40 mg capsule RxNorm: 440915 Capsule(s) TAKE ONE CAPSULE BY MOUTH EVERY MORNING 08/17/2017 12/14/2017 Inactive Pulmicort 1 mg/2 mL suspension for nebulization RxNorm: 6168 19 1 Unit Dose INH BID Dx: COPD (J44.9) 08/16/2017 08/22/2018 Inactive gabapentin 300 mg capsule RxNorm: 150746 1 Capsule(s) PO QHS 201610/18/2017 Inactive fluoxetine 20 mg capsule RxNorm: 552096 1 Capsule(s) PO QD 08/12/20 17 02/14/2018 Inactive Abilify 2 mg tablet RxNorm: 892637 1 Tablet(s) PO QD TA KE ONE TABLET BY MOUTH DAILY 08/12/2017 10/25/2017 Inactive metformin ER 500 mg tablet,extended release 24 hr RxNorm: 86 0975 1 Tablet(s) PO QD 08/10/2017 02/14/2018 Inactive Synthroid 112 mcg tablet RxNorm: 654761 1 Tablet(s) PO QD 08/10/2017 04/15/2018 Inactive oxycodone 10 mg tablet RxNorm: 0586527 1-2 Tablet(s) PO QID as n eeded for pain 07/19/2017 08/16/2017 Inactive Duragesic 100 mcg/hr transdermal patch RxNorm: 013387 2 Application TD Q48H for pain 07/19/2017 08/16/2017 Inactive Ventolin HFA 90 mcg/actuation aerosol inhaler RxNorm: 950389 2 Puff(s) INH Q4H as needed 07/12/2017 09/02/2017 Inactive Abilify 2 mg tablet RxNorm: 004205 1 Tablet(s) PO QD TA KE ONE TABLET BY MOUTH DAILY 07/06/2017 08/11/2017 Inactive gabapentin 800 mg tablet RxNorm: 552939 1 Tablet(s) PO TID 06/22/20 17 07/05/2017 Inactive Chantix Starting Month Box 0.5 mg (11)-1 mg (42) table ts in dose pack RxNorm: 531302 TAKE BY MOUTH INSTRUCTED - PER PACKAGE INSTRUCTIONS 06/0707/04/2017 Inactive Ventolin HFA 90 mcg/actuation aerosol inhaler RxNorm: 445945 2 Puff(s) INH Q4H as needed 05/26/2017 07/12/2017 Inactive Duragesic 100 mcg/hr transdermal patch RxNorm: 142683 2 Application TD Q48H for pain 05/19/2017 06/17/2017 Inactive oxycodone 10 mg tablet RxNorm: 0446095 1-2 Tablet(s) PO QID as n eeded for pain 05/19/2017 07/18/2017 Inactive Abilify 2 mg tablet RxNorm: 417590 TAKE ONE TABLET BY MOUTH DAILY 0 05/10/2017 07/05/2017 Inactive Synthroid 112 mcg tablet RxNorm: 901435 1 Tablet(s) PO QD 05/06/2017 08/10/2017 Inactive metformin ER 500 mg tablet,extended release 24 hr RxNorm: 86 0975 1 Tablet(s) PO QD 05/06/2017 08/10/2017 Inactive Topamax 100 mg tablet RxNorm: 928423 1 Tablet(s) PO QHS 05/06/2017 Inactive Premarin 0.45 mg tablet RxNorm: 392053 1 Tablet(s) PO QD 05/06/2017 0 04/15/2018 Inactive orphenadrine citrate ER 100 mg tablet,extended release RxNor m: 453662 1 Tablet(s) PO TID for muscle spasm--replaces methocarbamol 04/29/2017 Inactive oxycodone 10 mg tablet RxNorm: 3312290 1-2 Tablet(s) PO QID as n eeded for pain 04/21/2017 05/18/2017 Inactive Duragesic 100 mcg/hr transdermal patch RxNorm: 759119 2 Application TD Q48H for pain 04/21/2017 05/18/2017 Inactive fluoxetine 40 mg capsule RxNorm: 266510 Capsule(s) TAKE ONE CAPSULE BY MOUTH EVERY MORNING 04/20/2017 08/17/2017 Inactive Ventolin HFA 90 mcg/actuation aerosol inhaler RxNorm: 685971 2 Puff(s) INH Q4H as needed 04/05/2017 05/26/2017 Inactive Symbicort 160 mcg-4.5 mcg/actuation HFA aerosol inhaler RxNo rm: 8828943 2 Puff(s) INH BID 03/30/2017 04/15/2018 Inactive Spiriva with HandiHaler 18 mcg and inhalation capsules RxNor m: 573665 1 Capsule(s) INH QD USING HANDIHALER 03/30/2017 02/12/2019 Inactive Duragesic 100 mcg/hr transdermal patch RxNorm: 627293 2 Application TD Q48H for pain 03/18/2017 04/16/2017 Inactive oxycodone 10 mg tablet RxNorm: 7253358 1-2 Tablet(s) PO QID as n eeded for pain 03/18/2017 04/20/2017 Inactive metformin ER 500 mg tablet,extended release 24 hr RxNorm: 86 0975 Tablet(s) TAKE ONE TABLET BY MOUTH DAILY 03/01/2017 05/06/2017 Inactive Premarin 0.45 mg tablet RxNorm: 130019 Tablet(s) TAKE ONE TABLE T BY MOUTH DAILY 03/01/2017 05/06/2017 Inactive Synthroid 112 mcg tablet RxNorm: 353162 Tablet(s) TAKE ONE TABLET BY MOUTH DAILY 03/01/2017 05/06/2017 Inactive Daliresp 500 mcg tablet RxNorm: 3458649 1 Tablet(s) PO QD 03/01/2017 09/06/2017 Inactive 16.2 mg-0.1037 mg-0.0194 mg tablet RxNorm: 8118047 Tablet(s) PO PRN for gas and cramping 02/23/2017 04/28/2017 Inactive TAKE TWO TABLET S BY MOUTH THREE TIMES A DAY NEEDED FOR GAS AND CRAMPING gabapentin 800 mg tablet RxNorm: 206586 1 Tablet(s) PO TID repl aces 600mg 02/23/2017 04/28/2017 Inactive Duragesic 100 mcg/hr transdermal patch RxNorm: 769219 2 Application TD Q48H for pain 02/17/2017 03/17/2017 Inactive fluoxetine 20 mg capsule RxNorm: 479002 1 Capsule(s) PO QD 02/18/20 17 08/12/2017 Inactive oxycodone 20 mg tablet RxNorm: 5304606 1 Tablet(s) PO QID as nee ded for pain 02/17/2017 03/17/2017 Inactive Ventolin HFA 90 mcg/actuation aerosol inhaler RxNorm: 232172 INHALE TWO PUFFS BY MOUTH EVERY 4 HOURS NEEDED 02/15/2017 04/05/2017 Inactive Silvadene 1 % topical cream RxNorm: 399099 1 Application TOP BI D to burn area 02/01/2017 09/22/2017 Inactive Topamax 100 mg tablet RxNorm: 465972 TAKE ONE TABLET BY MOUTH EVERY NIGHT AT BEDTIME 01/29/2017 05/06/2017 Inactive Chantix Starting Month Box 0.5 mg (11)-1 mg (42) table ts in dose pack RxNorm: 583455 Tablet(s) PO as directed 01/29/2017 06/01/2017 Inactive Abilify 2 mg tablet RxNorm: 631368 TAKE ONE TABLET BY MOUTH DAILY 0 01/26/2017 04/25/2017 Inactive Chantix Starting Month Box 0.5 mg (11)-1 mg (42) table ts in dose pack RxNorm: 543677 Tablet(s) PO as directed 01/20/2017 01/28/2017 Inactive gabapentin 600 mg tablet RxNorm: 192055 1 Tablet(s) PO TID 01/21/20 17 02/22/2017 Inactive Chantix Continuing Month Box 1 mg tablet RxNorm: 196823 1 Table t(s) PO BID 12/31/2016 06/01/2017 Inactive Spiriva with HandiHaler 18 mcg and inhalation capsules RxNor m: 975024 INHALE THE ENTIRE CONTENTS OF 1 CAPSULE ONCE A DAY USING HANDIHALER 12/31/201607/2017 Inactive Synthroid 112 mcg tablet RxNorm: 684644 TAKE ONE TABLET BY MOUT H DAILY 12/30/2016 03/01/2017 Inactive metformin ER 500 mg tablet,extended release 24 hr RxNorm: 86 0975 TAKE ONE TABLET BY MOUTH DAILY 12/30/2016 03/01/2017 Inactive Premarin 0.45 mg tablet RxNorm: 367196 TAKE ONE TABLET BY MOUTH DAILY 12/30/2016 03/01/2017 Inactive omeprazole 40 mg capsule,delayed release RxNorm: 164777 TAKE ONE CAPSULE BY MOUTH DAILY 12/30/2016 01/25/2018 Inactive Ventolin HFA 90 mcg/actuation aerosol inhaler RxNorm: 150216 INHALE TWO PUFFS BY MOUTH EVERY 4 HOURS NEEDED 12/28/2016 02/13/2017 Inactive fluoxetine 40 mg capsule RxNorm: 692616 TAKE ONE CAPSULE BY BENOIT TH EVERY MORNING 12/15/2016 04/20/2017 Inactive Chantix Continuing Month Box 1 mg tablet RxNorm: 147626 TAKE ONE TABLET BY MOUTH TWICE A DAY 12/04/2016 12/31/2016 Inactive doxycycline hyclate 100 mg capsule RxNorm: 0515802 1 Capsule(s) PO BID 12/01/2016 12/07/2016 Inactive Levaquin 750 mg tablet RxNorm: 363126 1 Tablet(s) PO QD 12/01/2016 Inactive Abilify 2 mg tablet RxNorm: 601844 TAKE ONE TABLET BY MOUTH DAILY 0 11/25/2016 11/30/2016 Inactive Ventolin HFA 90 mcg/actuation aerosol inhaler RxNorm: 009419 INHALE TWO PUFFS BY MOUTH EVERY 4 HOURS NEEDED 11/02/2016 12/19/2016 Inactive Chantix Continuing Month Box 1 mg tablet RxNorm: 878450 Tablet(s) PO as directed 10/30/2016 12/03/2016 Inactive Symbicort 160 mcg-4.5 mcg/actuation HFA aerosol inhaler RxNo rm: 5747847 INHALE TWO PUFFS TWO TIMES A DAY 10/30/2016 03/30/2017 Inactive Abilify 2 mg tablet RxNorm: 547696 1 Tablet(s) PO QD 10/27/201611/24 Inactive amoxicillin 500 mg capsule RxNorm: 182143 1 Capsule(s) PO TID 10/1410/23/2016 Inactive amoxicillin 500 mg capsule RxNorm: 861822 1 Capsule(s) PO TID 10/1410/13/2016 Inactive Synthroid 112 mcg tablet RxNorm: 155168 TAKE ONE TABLET BY MOUT H DAILY 09/28/2016 12/29/2016 Inactive Topamax 100 mg tablet RxNorm: 761211 TAKE ONE TABLET BY MOUTH EVERY NIGHT AT BEDTIME 09/28/2016 01/28/2017 Inactive Premarin 0.45 mg tablet RxNorm: 058750 TAKE ONE TABLET BY MOUTH DAILY 09/28/2016 12/29/2016 Inactive metformin ER 500 mg tablet,extended release 24 hr RxNorm: 86 0975 TAKE ONE TABLET BY MOUTH DAILY 09/28/2016 12/29/2016 Inactive Ventolin HFA 90 mcg/actuation aerosol inhaler RxNorm: 819789 INHALE TWO PUFFS BY MOUTH EVERY 4 HOURS NEEDED 09/22/2016 10/23/2016 Inactive Pulmicort 1 mg/2 mL suspension for nebulization RxNorm: 6168 19 1 Unit Dose INH BID Dx: COPD (J44.9) 09/10/2016 08/16/2017 Inactive Pulmicort 1 mg/2 mL suspension for nebulization RxNorm: 6168 19 1 Unit Dose INH BID 09/10/2016 09/09/2016 Inactive Brovana 15 mcg/2 mL solution for nebulization RxNorm: 784149 1 Unit Dose INH BID Dx: COPD (J44.9) 09/10/2016 01/25/2018 Inactive Brovana 15 mcg/2 mL solution for nebulization RxNorm: 265309 1 Unit Dose INH BID 09/10/2016 09/09/2016 Inactive ipratropium-albuterol 0.5 mg-3 mg(2.5 mg base)/3 mL ne bulization soln RxNorm: 5874561 1 Unit Dose INH Q4H as needed Dx: COPD (J44.9) 09/10/2016 0 02/12/2019 Inactive orphenadrine citrate ER 100 mg tablet,extended release RxNor m: 343911 1 Tablet(s) PO BID for muscle spasm--replaces methocarbamol 09/09/2016 Inactive Chantix Continuing Month Box 1 mg tablet RxNorm: 535951 Tablet(s) PO as directed 09/09/2016 10/30/2016 Inactive orphenadrine citrate ER 100 mg tablet,extended release RxNor m: 725367 1 Tablet(s) PO BID for muscle spasm 09/09/2016 09/08/2016 Inactive Spiriva with HandiHaler 18 mcg and inhalation capsules RxNor m: 983672 INHALE THE ENTIRE CONTENTS OF 1 CAPSULE ONCE A DAY USING HANDIHALER 09/01/201605/2017 Inactive Daliresp 500 mcg tablet RxNorm: 8167773 1 Tablet(s) PO QD 08/27/2016 03/01/2017 Inactive prednisone 20 mg tablet RxNorm: 113514 3 Tablet(s) PO T ID for 3 days then 1 po BID for 3 days then one daily for 3 days 08/26/2016 04/28/2017 Inactiv e Wellbutrin XL 300 mg 24 hr tablet, extended release RxNorm: 047005 TAKE ONE TABLET BY MOUTH EVERY MORNING 07/29/2016 10/26/2016 Inactive gabapentin 600 mg tablet RxNorm: 263804 1 Tablet(s) PO BID 06/26/20 16 12/22/2016 Inactive fluoxetine 40 mg capsule RxNorm: 865246 TAKE ONE CAPSULE BY BENOIT TH EVERY MORNING 06/24/2016 11/20/2016 Inactive Duragesic 100 mcg/hr transdermal patch RxNorm: 989274 2 Application TD Q48H for pain 06/05/2016 07/04/2016 Inactive oxycodone 10 mg tablet RxNorm: 7488531 1-2 Tablet(s) PO QID as n eeded for pain 06/05/2016 03/17/2017 Inactive Belladonna-Phenobarbital 48 mg tablet,extended release RxNor m: 2 Tablet(s) PO TID 06/05/2016 01/19/2017 Inactive Premarin 0.45 mg tablet RxNorm: 092574 TAKE ONE TABLET BY MOUTH DAILY 05/27/2016 09/23/2016 Inactive Topamax 100 mg tablet RxNorm: 254092 TAKE ONE TABLET BY MOUTH EVERY NIGHT AT BEDTIME 05/27/2016 09/27/2016 Inactive Synthroid 112 mcg tablet RxNorm: 849263 TAKE ONE TABLET BY MOUT H DAILY 05/27/2016 09/23/2016 Inactive metformin ER 500 mg tablet,extended release 24 hr RxNorm: 86 0975 TAKE ONE TABLET BY MOUTH DAILY 05/27/2016 09/23/2016 Inactive Symbicort 160 mcg-4.5 mcg/actuation HFA aerosol inhaler RxNo rm: 9732481 INHALE TWO PUFFS TWO TIMES A DAY 05/27/2016 10/23/2016 Inactive Ventolin HFA 90 mcg/actuation aerosol inhaler RxNorm: 311058 INHALE TWO PUFFS BY MOUTH EVERY 4 HOURS NEEDED 05/21/2016 07/07/2016 Inactive omeprazole 40 mg capsule,delayed release RxNorm: 230842 1 Capsu le(s) PO QD 05/06/2016 08/03/2016 Inactive metformin ER 500 mg tablet,extended release 24 hr RxNorm: 86 0975 TAKE ONE TABLET BY MOUTH DAILY 04/23/2016 05/22/2016 Inactive methocarbamol 750 mg tablet RxNorm: 551440 2 Tablet(s) PO TID as needed for muscle spasm 04/23/2016 09/08/2016 Inactive Synthroid 112 mcg tablet RxNorm: 619833 TAKE ONE TABLET BY MOUT H DAILY 04/23/2016 05/22/2016 Inactive Spiriva with HandiHaler 18 mcg and inhalation capsules RxNor m: 693111 INHALE THE ENTIRE CONTENTS OF 1 CAPSULE ONCE A DAY USING HANDIHALER 04/09/201608/2016 Inactive Diflucan 100 mg tablet RxNorm: 731560 1 Tablet(s) PO QD 04/08/2016 Inactive doxycycline hyclate 100 mg capsule RxNorm: 5802276 1 Capsule(s) PO BID 04/08/2016 04/17/2016 Inactive doxycycline hyclate 100 mg capsule RxNorm: 1454554 1 Capsule(s) PO BID 04/08/2016 04/07/2016 Inactive Diflucan 100 mg tablet RxNorm: 934725 1 Tablet(s) PO QD 04/08/2016 Inactive ondansetron HCl 4 mg tablet RxNorm: 715665 1 Tablet(s) PO Q4H as needed for nausea and vomiting 04/08/2016 09/22/2017 Inactive gabapentin 600 mg tablet RxNorm: 389123 TAKE ONE TABLET BY MOUT H TWICE A DAY 03/24/2016 06/25/2016 Inactive Synthroid 112 mcg tablet RxNorm: 114717 TAKE ONE TABLET BY MOUT H DAILY 02/25/2016 04/22/2016 Inactive Levaquin 500 mg tablet RxNorm: 945500 1 Tablet(s) PO QD 01/23/2016 Inactive prednisone 20 mg tablet RxNorm: 518215 1 Tablet(s) PO T ID for 3 days then 1 po BID for 3 days then one daily for 3 days 01/23/2016 08/25/2016 Inactiv e [employer] Ultra Test strips RxNorm: TEST BLOOD SUGAR ONCE DAILY 250.00 01/09/2016 11/04/2017 Inactive methocarbamol 750 mg tablet RxNorm: 453053 2 Tablet(s) PO TID as needed for muscle spasm 01/09/2016 04/23/2016 Inactive lactulose 10 gram/15 mL oral solution RxNorm: 966253 [address](s) PO QD 01/09/2016 09/22/2017 Inactive TAKE 1 TABLESPOON BY MOUTH ONCE DAILY metformin ER 500 mg tablet,extended release 24 hr RxNorm: 86 0975 1 Tablet(s) PO QD 12/26/2015 04/22/2016 Inactive fluoxetine 20 mg capsule RxNorm: 961953 1 Capsule(s) PO QD 12/23/19 16 06/19/2016 Inactive Premarin 0.45 mg tablet RxNorm: 133561 TAKE ONE TABLET BY MOUTH DAILY 12/23/2015 05/20/2016 Inactive fluoxetine 40 mg capsule RxNorm: 586192 1 Capsule(s) PO QD 12/23/19 16 06/19/2016 Inactive TAKE ONE CAPSULE BY MOUTH EV JANKI MORNING azithromycin 500 mg tablet RxNorm: 774525 1 Tablet(s) PO QD 016 12/19/2015 Inactive Zofran 4 mg tablet RxNorm: 900289 1 Tablet(s) PO Q4H prn nausea /vomiting 12/13/2015 03/30/2018 Inactive azithromycin 500 mg tablet RxNorm: 949418 1 Tablet(s) PO QD 016 12/12/2015 Inactive Duragesic 100 mcg/hr transdermal patch RxNorm: 395952 2 Application TD Q48H for pain 12/09/2015 01/07/2016 Inactive oxycodone 10 mg tablet RxNorm: 0904580 1-2 Tablet(s) PO QID as n eeded for pain 12/09/2015 06/04/2016 Inactive Bactroban 2 % topical cream RxNorm: 761986 Application TOP BID 11/2208/25/2016 Inactive doxycycline hyclate 100 mg capsule RxNorm: 6660393 1 Capsule(s) PO BID 12/03/2015 12/12/2015 Inactive Topamax 100 mg tablet RxNorm: 160519 TAKE ONE TABLET BY MOUTH EVERY NIGHT AT BEDTIME 11/25/2015 05/22/2016 Inactive Symbicort 160 mcg-4.5 mcg/actuation HFA aerosol inhaler RxNo rm: 5076864 INHALE TWO PUFFS TWO TIMES A DAY 11/25/2015 05/22/2016 Inactive Synthroid 112 mcg tablet RxNorm: 150988 Tablet(s) TAKE ONE TABLET BY MOUTH DAILY 11/25/2015 02/22/2016 Inactive omeprazole 40 mg capsule,delayed release RxNorm: 068333 1 Capsu le(s) PO QD 11/12/2015 05/05/2016 Inactive oxycodone 10 mg tablet RxNorm: 0164634 1-2 Tablet(s) PO QID as n eeded for pain 11/05/2015 12/08/2015 Inactive Duragesic 100 mcg/hr transdermal patch RxNorm: 724060 2 Application TD Q48H for pain 11/05/2015 12/04/2015 Inactive omeprazole 40 mg capsule,delayed release RxNorm: 332376 1 Capsu le(s) PO QD 10/07/2015 11/11/2015 Inactive Januvia 100 mg tablet RxNorm: 668753 TAKE ONE TABLET BY MOUTH DAILY 09/11/2015 12/25/2015 Inactive Zithromax 500 mg tablet RxNorm: 482809 1 Tablet(s) PO QD 09/10/2015 1 Inactive prednisone 20 mg tablet RxNorm: 179517 1 Tablet(s) PO T ID for 3 days then 1 po BID for 3 days then one daily for 3 days 09/10/2015 08/25/2016 Inactiv e Wellbutrin XL 300 mg 24 hr tablet, extended release RxNorm: 843725 1 Tablet(s) PO QAM 09/10/2015 12/02/2015 Inactive Topamax 100 mg tablet RxNorm: 948464 TAKE ONE TABLET BY MOUTH EVERY NIGHT AT BEDTIME 09/02/2015 11/24/2015 Inactive Synthroid 112 mcg tablet RxNorm: 313645 TAKE ONE TABLET BY MOUT H DAILY 09/02/2015 11/25/2015 Inactive methocarbamol 750 mg tablet RxNorm: 004456 2 Tablet(s) PO TID as needed for muscle spasm 08/15/2015 01/09/2016 Inactive Wellbutrin XL 150 mg 24 hr tablet, extended release RxNorm: 934461 TAKE ONE TABLET BY MOUTH EVERY MORNING 08/13/2015 08/13/2015 Inactive gabapentin 600 mg tablet RxNorm: 497095 1 Tablet(s) PO BID 08/13/20 15 02/08/2016 Inactive Wellbutrin XL 300 mg 24 hr tablet, extended release RxNorm: 726265 1 Tablet(s) PO QAM 08/06/2015 09/09/2015 Inactive Wellbutrin XL 150 mg 24 hr tablet, extended release RxNorm: 552228 1 Tablet(s) PO QAM 07/18/2015 08/05/2015 Inactive prednisone 20 mg tablet RxNorm: 540955 1 Tablet(s) PO BID 07/18/2015 07/22/2015 Inactive doxycycline hyclate 100 mg tablet,delayed release RxNorm: 43 4018 1 Tablet(s) PO BID 07/18/2015 07/27/2015 Inactive pravastatin 40 mg tablet RxNorm: 709386 1 Tablet(s) PO QD NEEDS FASTING LAB 07/15/2015 07/14/2015 Inactive pravastatin 40 mg tablet RxNorm: 659308 1 Tablet(s) PO QD NEEDS FASTING LAB 07/15/2015 01/25/2018 Inactive Ventolin HFA 90 mcg/actuation aerosol inhaler RxNorm: 634599 2 Puff(s) INH Q4H 07/08/2015 07/07/2015 Inactive prn Premarin 0.45 mg tablet RxNorm: 799264 1 Tablet(s) PO QD 07/01/2015 0 12/22/2015 Inactive pravastatin 40 mg tablet RxNorm: 465962 1 Tablet(s) PO QD NEEDS FASTING LAB 06/14/2015 07/15/2015 Inactive Ventolin HFA 90 mcg/actuation aerosol inhaler RxNorm: 1612741 2 Puff(s) INH Q4H 06/06/2015 07/08/2015 Inactive prn albuterol sulfate 2.5 mg/3 mL (0.083 %) solution for n ebulization RxNorm: 482618 1 Unit Dose INH QID 05/30/2015 No Stop Date Active Duragesic 100 mcg/hr transdermal patch RxNorm: 245209 2 Application TD Q48H for pain 04/29/2015 05/28/2015 Inactive gabapentin 600 mg tablet RxNorm: 081446 1 Tablet(s) PO BID 04/11/20 15 08/13/2015 Inactive Onglyza 5 mg tablet RxNorm: 728305 1 Tablet(s) PO QD for blood suga r 04/10/2015 04/15/2015 Inactive [Brand Copay Card: RxBIN:[id number] PCN:CRISTIANA RxGRP:[id number] ID#:[id number]] methocarbamol 750 mg tablet RxNorm: 021697 2 Tablet(s) PO TID as needed for muscle spasm 03/28/2015 08/15/2015 Inactive pravastatin 40 mg tablet RxNorm: 558613 1 Tablet(s) PO QD 03/19/2015 03/18/2015 Inactive pravastatin 40 mg tablet RxNorm: 651929 1 Tablet(s) PO QD 03/19/2015 06/14/2015 Inactive lactulose 10 gram/15 mL oral solution RxNorm: 049855 [address]s) PO QD 03/07/2015 01/09/2016 Inactive TAKE 1 TABLESPOON BY MOUTH ONCE DAILY oxycodone 20 mg tablet RxNorm: 4423233 1 Tablet(s) PO QID as nee ded for pain 03/05/2015 07/08/2015 Inactive Topamax 100 mg tablet RxNorm: 130686 1 Tablet(s) PO QHS TAKE ONE TABLET BY MOUTH AT BEDTIME 02/25/2015 02/12/2019 Inactive metformin ER 500 mg tablet,extended release 24 hr RxNorm: 86 0975 1 Tablet(s) PO QD 02/11/2015 03/04/2015 Inactive take one tablet by mouth every day Daliresp 500 mcg tablet RxNorm: 5614457 1 Tablet(s) PO QD 02/11/2015 08/09/2015 Inactive Endocet 10 mg-325 mg tablet RxNorm: 1122372 1 Tablet(s) PO Q4H as needed for pain 01/23/2015 01/23/2015 Inactive gabapentin 600 mg tablet RxNorm: 495081 1 Tablet(s) PO BID 01/23/2004/11/2015 Inactive methocarbamol 750 mg tablet RxNorm: 855557 2 Tablet(s) PO TID as needed for muscle spasm 01/15/2015 02/13/2015 Inactive fluoxetine 40 mg capsule RxNorm: 420118 1 Capsule(s) PO QD 01/14/20 15 12/23/2015 Inactive TAKE ONE CAPSULE BY MOUTH EV JANKI MORNING fluoxetine 20 mg capsule RxNorm: 597624 1 Capsule(s) PO QD 01/14/20 15 12/23/2015 Inactive Premarin 0.45 mg tablet RxNorm: 668847 1 Tablet(s) PO QD 01/02/2015 0 07/01/2015 Inactive Endocet 10 mg-325 mg tablet RxNorm: 1624355 1-2 Tablet(s) PO Q4H 02/12/2019 Inactive PRN PAIN Duragesic 100 mcg/hr transdermal patch RxNorm: 380905 2 Application TD Q48H for pain 12/25/2014 01/23/2015 Inactive Topamax 100 mg tablet RxNorm: 538471 1 Tablet(s) PO QHS TAKE ONE TABLET BY MOUTH AT BEDTIME 12/25/2014 02/24/2015 Inactive Tudorza Pressair 400 mcg/actuation breath activated RxNorm: 5747104 1 BID INHALE ONE PUFF INTO LUNGS TWO TIMES A DAY 12/17/2014 05/15/2015 Inactive Endocet 10 mg-325 mg tablet RxNorm: 5221431 1-2 Tablet(s) PO Q4H 12/19/2014 Inactive PRN PAIN Duragesic 100 mcg/hr transdermal patch RxNorm: 964801 2 Application TD Q48H for pain 11/20/2014 12/24/2014 Inactive [employer]Touch Ultra Test strips RxNorm: TEST BLOOD SUGAR ONCE DAILY 250.00 11/16/2014 01/08/2016 Inactive omeprazole 40 mg capsule,delayed release RxNorm: 270449 1 Capsu le(s) PO QD 11/13/2014 11/12/2015 Inactive metformin ER 500 mg tablet,extended release 24 hr RxNorm: 86 0975 1 Tablet(s) PO QD 11/12/2014 02/11/2015 Inactive take one tablet by mouth every day Symbicort 160 mcg-4.5 mcg/actuation HFA aerosol inhaler RxNo rm: 8066990 2 Puff(s) INH BID 11/12/2014 03/11/2015 Inactive INHALE 2 PUFFS O RALLY TWO TIMES A DAY gabapentin 800 mg tablet RxNorm: 349617 1 Tablet(s) PO QD TAKE ONE TABLET BY MOUTH ONCE A DAY 10/22/2014 01/01/2015 Inactive Endocet 10 mg-325 mg tablet RxNorm: 7595537 1-2 Tablet(s) PO Q4H 11/15/2014 Inactive PRN PAIN Duragesic 100 mcg/hr transdermal patch RxNorm: 392454 2 Application TD Q48H for pain 10/17/2014 11/19/2014 Inactive gabapentin 800 mg tablet RxNorm: 321249 1 Tablet(s) PO QD TAKE ONE TABLET BY MOUTH ONCE A DAY 10/04/2014 10/21/2014 Inactive Premarin 0.9 mg tablet RxNorm: 576166 1 Tablet(s) PO QD TAKE ONE TABLET BY MOUTH ONCE A DAY 10/04/2014 01/01/2015 Inactive Spiriva with HandiHaler 18 mcg & inhalation capsules RxNorm: 291532 1 Capsule(s) INH QD 10/03/2014 04/30/2015 Inactive Levaquin 500 mg tablet RxNorm: 898346 1 Tablet(s) PO QD 10/03/2014 Inactive prednisone 20 mg tablet RxNorm: 566086 1 Tablet(s) PO QD 10/03/2014 1 12/09/2013 Inactive Duragesic 100 mcg/hr transdermal patch RxNorm: 142624 2 Application TD Q48H for pain 09/18/2014 10/16/2014 Inactive Endocet 10 mg-325 mg tablet RxNorm: 5590538 1-2 Tablet(s) PO Q4H 10/16/2014 Inactive PRN PAIN Synthroid 112 mcg tablet RxNorm: 962634 1 Tablet(s) QD 09/10/2014 Inactive Synthroid 112 mcg tablet RxNorm: 914922 TAKE ONE TABLET BY MOUTH ONE TIME A DAY. NEEDS LABS 09/10/2014 02/06/2015 Inactive omeprazole 40 mg capsule,delayed release RxNorm: 116923 1 Capsu le(s) PO QD 09/03/2014 11/13/2014 Inactive omeprazole 40 mg capsule,delayed release RxNorm: 934265 1 Capsu le(s) PO QD 09/03/2014 09/02/2014 Inactive Spiriva with HandiHaler 18 mcg & inhalation capsules RxNorm: 443867 1 Capsule(s) INH QD 08/27/2014 10/02/2014 Inactive gabapentin 600 mg tablet RxNorm: 383799 1 Tablet(s) PO BID 08/27/20 14 10/22/2014 Inactive Endocet 10 mg-325 mg tablet RxNorm: 2995862 1-2 Tablet(s) PO Q4H 09/17/2014 Inactive PRN PAIN fentanyl 100 mcg/hr transdermal patch RxNorm: 957839 1 Unit Dos e TD QD 08/21/2014 09/19/2014 Inactive Daliresp 500 mcg tablet RxNorm: 5375251 1 Tablet(s) PO QD 08/13/2014 02/11/2015 Inactive Synthroid 112 mcg tablet RxNorm: 837511 TAKE ONE TABLET BY MOUTH ONE TIME A DAY. NEEDS LABS 08/10/2014 09/10/2014 Inactive Endocet 10 mg-325 mg tablet RxNorm: 4347554 1-2 Tablet(s) PO Q4H 08/17/2014 Inactive PRN PAIN Duragesic 100 mcg/hr transdermal patch RxNorm: 344663 2 Application TD Q48H for pain 07/19/2014 09/17/2014 Inactive fluoxetine 40 mg capsule RxNorm: 629145 1 Capsule(s) PO QD 07/17/20 14 01/14/2015 Inactive TAKE ONE CAPSULE BY MOUTH EV JANKI MORNING fluoxetine 20 mg capsule RxNorm: 779012 1 Capsule(s) PO QD 07/17/20 14 01/14/2015 Inactive Spiriva with HandiHaler 18 mcg & inhalation capsules RxNorm: 480794 1 Capsule(s) INH QD 07/17/2014 08/26/2014 Inactive INHALE CONTENTS OF 1 CAPSULE(S) WITH HANDIHALER ONCE DAILY Zofran 4 mg tablet RxNorm: 902010 1 Tablet(s) PO Q4H prn nausea 07/25/2014 Inactive Synthroid 112 mcg tablet RxNorm: 277453 1 Tablet(s) PO QD 07/09/2014 07/09/2014 Inactive methocarbamol 750 mg tablet RxNorm: 765394 2 Tablet(s) PO TID as needed for muscle spasm 07/09/2014 09/06/2014 Inactive Synthroid 112 mcg tablet RxNorm: 331844 1 Tablet(s) PO QD - nee d labs 07/09/2014 08/07/2014 Inactive Medrol (Aníbal) 4 mg tablets in a dose pack RxNorm: 093635 6 Tablet(s) PO QD --then as directed 07/03/2014 07/08/2014 Inactive Tudorza Pressair 400 mcg/actuation breath activated RxNorm: 8803568 1 Puff(s) INH BID 07/03/2014 12/17/2014 Inactive cefdinir 300 mg capsule RxNorm: 960143 1 Capsule(s) PO BID 07/03/20 14 07/12/2014 Inactive Topamax 100 mg tablet RxNorm: 477984 Tablet(s) TAKE ONE TABLET BY MOUTH AT BEDTIME 07/02/2014 02/25/2015 Inactive Duragesic 100 mcg/hr transdermal patch RxNorm: 121277 2 Application TD Q48H for pain 06/25/2014 07/18/2014 Inactive Endocet 10 mg-325 mg tablet RxNorm: 0410480 1-2 Tablet(s) PO Q4H 07/18/2014 Inactive PRN PAIN metformin ER 500 mg tablet,extended release 24 hr RxNorm: 86 0975 1 Tablet(s) PO QD Needs labs 06/18/2014 07/01/2014 Inactive take one tablet by mouth every day Duragesic 100 mcg/hr transdermal patch RxNorm: 602443 2 Application TD Q48H for pain 05/22/2014 06/24/2014 Inactive Synthroid 112 mcg tablet RxNorm: 451026 1 Tablet(s) PO QD 05/22/2014 07/09/2014 Inactive Endocet 10 mg-325 mg tablet RxNorm: 2583219 1-2 Tablet(s) PO Q4H 06/20/2014 Inactive PRN PAIN Endocet 10 mg-325 mg tablet RxNorm: 6491878 1-2 Tablet(s) PO Q4H 05/21/2014 Inactive PRN PAIN Duragesic 100 mcg/hr transdermal patch RxNorm: 459225 2 Application TD Q48H for pain 04/25/2014 05/21/2014 Inactive Daliresp 500 mcg tablet RxNorm: 9275928 1 Tablet(s) PO QD 04/24/2014 08/13/2014 Inactive Symbicort 160 mcg-4.5 mcg/actuation HFA aerosol inhaler RxNo rm: 6985164 2 Puff(s) INH BID 04/24/2014 08/21/2014 Inactive INHALE 2 PUFFS O RALLY TWO TIMES A DAY metformin ER 500 mg tablet,extended release 24 hr RxNorm: 86 0975 1 Tablet(s) PO QD 04/24/2014 11/12/2014 Inactive TAKE ONE TABLET BY MOUTH EVERY DAY [AttnRPh:Saving Apply/Adjudicate RxGRP:LDMGRP RxBIN:[id number] RxPCN:2012 PCode:01 ID#:[id number]] Symbicort 160 mcg-4.5 mcg/actuation HFA aerosol inhaler RxNo rm: 3122831 2 Puff(s) INH BID 04/24/2014 11/12/2014 Inactive INHALE 2 PUFFS O RALLY TWO TIMES A DAY Premarin 0.9 mg tablet RxNorm: 978344 1 Tablet(s) PO QD 04/24/2014 Inactive TAKE ONE TABLET BY MOUTH EVERY DAY metformin ER 500 mg tablet,extended release 24 hr RxNorm: 86 0975 1 Tablet(s) PO QD Needs labs 04/24/2014 06/18/2014 Inactive TAKE ONE TABLET BY MOUTH EVERY DAY [AttnRPh:Saving Apply/Adjudicate RxGRP:LDMGRP RxBIN:[id number] RxPCN:2012 PCode:01 ID#:[id number]] gabapentin 800 mg tablet RxNorm: 248131 1 Tablet(s) PO QD 04/24/2014 10/04/2014 Inactive TAKE ONE TABLET BY MOUTH EVERY DAY Topamax 100 mg tablet RxNorm: 899388 1 Tablet(s) PO QHS 04/17/2014 Inactive Topamax 100 mg tablet RxNorm: 460079 TAKE ONE TABLET BY MOUTH A T BEDTIME 04/17/2014 07/01/2014 Inactive Tudorza Pressair 400 mcg/actuation breath activated RxNorm: 2229848 1 Puff(s) INH BID 04/11/2014 07/02/2014 Inactive Duragesic 100 mcg/hr transdermal patch RxNorm: 368284 2 Application TD Q48H for pain 03/27/2014 04/24/2014 Inactive Endocet 10 mg-325 mg tablet RxNorm: 1546518 1-2 Tablet(s) PO Q4H 04/24/2014 Inactive PRN PAIN Robaxin 750 mg tablet RxNorm: 292572 2 Tablet(s) PO TID as need ed for spasm 02/23/2014 03/28/2015 Inactive Duragesic 100 mcg/hr transdermal patch RxNorm: 161683 2 Application TD Q48H for pain 02/23/2014 No Stop Date Active Endocet 10 mg-325 mg tablet RxNorm: 1250629 1-2 Tablet(s) PO Q4H 03/23/2014 Inactive PRN PAIN Synthroid 112 mcg tablet RxNorm: 937850 1 Tablet(s) PO QD TAKE ONE TABLET BY MOUTH EVERY DAY 02/15/2014 05/22/2014 Inactive Zithromax 500 mg tablet RxNorm: 340406 1 Tablet(s) PO QD 01/30/2014 0 02/05/2014 Inactive Diflucan 100 mg tablet RxNorm: 059536 1 Tablet(s) PO QD 01/30/2014 Inactive prednisone 20 mg tablet RxNorm: 175583 1 Tablet(s) PO BID 01/30/2014 02/05/2014 Inactive fluoxetine 40 mg capsule RxNorm: 777178 1 Capsule(s) PO QD 01/23/20 14 07/16/2014 Inactive TAKE ONE CAPSULE BY MOUTH EV JANKI MORNING fluoxetine 40 mg capsule RxNorm: 586705 1 Capsule(s) PO QD 01/23/20 14 07/17/2014 Inactive TAKE ONE CAPSULE BY MOUTH EV JANKI MORNING cefdinir 300 mg capsule RxNorm: 457966 1 Capsule(s) PO BID 01/16/20 14 01/29/2014 Inactive Zithromax 500 mg tablet RxNorm: 746896 1 Tablet(s) PO QD 01/16/2014 0 01/22/2014 Inactive prednisone 20 mg tablet RxNorm: 742586 1 Tablet(s) PO BID 01/16/2014 01/22/2014 Inactive Spiriva with HandiHaler 18 mcg and inhalation capsules RxNor m: 361371 1 Capsule(s) INH QD 12/18/2013 07/17/2014 Inactive INHALE CONTENT S OF 1 CAPSULE(S) WITH HANDIHALER ONCE DAILY fluoxetine 20 mg capsule RxNorm: 817968 1 Capsule(s) PO QD 12/18/19 14 06/15/2014 Inactive Spiriva with HandiHaler 18 mcg & inhalation capsules RxNorm: 932894 1 Capsule(s) INH QD 12/18/2013 06/15/2014 Inactive INHALE CONTENTS OF 1 CAPSULE(S) WITH HANDIHALER ONCE DAILY fluoxetine 20 mg capsule RxNorm: 938055 1 Capsule(s) PO QD 12/18/19 14 07/17/2014 Inactive cefdinir 300 mg capsule RxNorm: 688433 2 Capsule(s) PO QD 12/12/2013 12/21/2013 Inactive Duragesic 100 mcg/hr transdermal patch RxNorm: 197254 2 Application TD Q48H for pain 12/08/2013 12/07/2013 Inactive Topamax 100 mg tablet RxNorm: 225719 1 Tablet(s) PO QHS 12/04/2013 Inactive Endocet 10 mg-325 mg tablet RxNorm: 0557438 1-2 Tablet(s) PO Q4H 12/26/2013 Inactive PRN PAIN Robaxin 750 mg tablet RxNorm: 629622 2 Tablet(s) PO TID as need ed for spasm 11/07/2013 01/05/2014 Inactive gabapentin 800 mg tablet RxNorm: 597204 1 Tablet(s) PO QD 10/16/2013 04/24/2014 Inactive TAKE ONE TABLET BY MOUTH EVERY DAY Symbicort 160 mcg-4.5 mcg/actuation HFA aerosol inhaler RxNo rm: 3119231 2 Puff(s) INH BID 10/16/2013 04/24/2014 Inactive INHALE 2 PUFFS O RALLY TWO TIMES A DAY Premarin 0.9 mg tablet RxNorm: 484931 1 Tablet(s) PO QD 10/16/2013 Inactive TAKE ONE TABLET BY MOUTH EVERY DAY metformin ER 500 mg tablet,extended release 24 hr RxNorm: 86 0975 1 Tablet(s) PO QD 10/16/2013 04/24/2014 Inactive TAKE ONE TABLET BY MOUTH EVERY DAY Daliresp 500 mcg tablet RxNorm: 5120297 1 Tablet(s) PO QD 10/16/2013 04/24/2014 Inactive Robaxin 750 mg tablet RxNorm: 019530 2 Tablet(s) PO TID as need ed for spasm 10/10/2013 11/06/2013 Inactive Duragesic 100 mcg/hr transdermal patch RxNorm: 236644 2 Application TD Q48H for pain 10/09/2013 No Stop Date Active Soma 350 mg tablet RxNorm: 344223 1 Tablet(s) PO TID 09/27/201310/09 Inactive TAKE ONE TABLET BY MOUTH THREE TIMES A D AY lactulose 10 gram/15 mL oral solution RxNorm: 419615 [address](s) PO QD 09/13/2013 03/07/2015 Inactive TAKE 1 TABLESPOON BY MOUTH ONCE DAILY Duragesic 100 mcg/hr transdermal patch RxNorm: 085429 2 Application TD Q48H for pain 09/06/2013 No Stop Date Active Endocet 10 mg-325 mg tablet RxNorm: 9249951 1-2 Tablet(s) PO Q4H 09/27/2013 Inactive PRN PAIN lancets 28 gauge RxNorm: Miscellaneous As needed for blo od glucose sticks 08/24/2013 No Stop Date Active 16.2 mg-0.1037 mg-0.0194 mg tablet RxNorm: 6240039 Tablet(s) PO PRN for gas and cramping 08/24/2013 01/19/2017 Inactive TAKE TWO TABLET S BY MOUTH THREE TIMES A DAY NEEDED FOR GAS AND CRAMPING Topamax 100 mg tablet RxNorm: 730790 1 Tablet(s) PO QHS 07/31/2013 Inactive Diflucan 100 mg tablet RxNorm: 910377 1 Tablet(s) PO QD 07/27/2013 Inactive cefdinir 300 mg capsule RxNorm: 944290 1 Capsule(s) PO BID 07/26/20 13 08/08/2013 Inactive Daliresp 500 mcg tablet RxNorm: 9445016 1 Tablet(s) PO QD 07/25/2013 10/15/2013 Inactive fluoxetine 40 mg capsule RxNorm: 948573 1 Capsule(s) PO QD 07/25/20 13 01/22/2014 Inactive TAKE ONE CAPSULE BY MOUTH EV JANKI MORNING Senokot-S 8.6 mg-50 mg tablet RxNorm: 5254581 1 Tablet(s) PO BID 10/25/2013 Inactive doxycycline hyclate 100 mg capsule RxNorm: 5093853 1 Capsule(s) PO BID 06/28/2013 07/07/2013 Inactive prednisone 20 mg tablet RxNorm: 334365 1 Tablet(s) PO BID 06/28/2013 07/04/2013 Inactive Zofran 4 mg tablet RxNorm: 213754 1 Tablet(s) PO Q4H prn nausea 03/201307/05/2013 Inactive Spiriva with HandiHaler 18 mcg & inhalation capsules RxNorm: 108444 1 Capsule(s) INH QD 06/26/2013 12/18/2013 Inactive INHALE CONTENTS OF 1 CAPSULE(S) WITH HANDIHALER ONCE DAILY Synthroid 112 mcg tablet RxNorm: 292531 1 Tablet(s) PO QD TAKE ONE TABLET BY MOUTH EVERY DAY 06/19/2013 02/15/2014 Inactive fluoxetine 20 mg capsule RxNorm: 979326 1 Capsule(s) PO QD 06/19/2012/18/2013 Inactive Ventolin HFA 90 mcg/actuation Aerosol Inhaler RxNorm: 1816756 2 Puff(s) INH Q4H 06/05/2013 No Stop Date Active prn Soma 350 mg tablet RxNorm: 809077 1 Tablet(s) PO TID 06/05/201307/04 Inactive TAKE ONE TABLET BY MOUTH THREE TIMES A D AY prednisone 20 mg tablet RxNorm: 036640 1 Tablet(s) PO QD 05/31/2013 0 06/06/2013 Inactive Topamax 100 mg tablet RxNorm: 163053 1 Tablet(s) PO QHS 05/22/2013 Inactive Levaquin 500 mg tablet RxNorm: 079749 1 Tablet(s) PO QD 05/03/2013 Inactive Diflucan 100 mg tablet RxNorm: 256500 1 Tablet(s) PO QD 05/03/2013 Inactive Daliresp 500 mcg tablet RxNorm: 0849624 1 Tablet(s) PO QD 05/01/2013 07/24/2013 Inactive Daliresp 500 mcg tablet RxNorm: 7942214 1 Tablet(s) PO QD 05/01/2013 04/30/2013 Inactive gabapentin 800 mg tablet RxNorm: 461725 1 Tablet(s) PO QD 04/10/2013 10/06/2013 Inactive TAKE ONE TABLET BY MOUTH EVERY DAY metformin ER 500 mg tablet,extended release 24 hr RxNorm: 86 0977 1 Tablet(s) PO QD 04/10/2013 10/06/2013 Inactive TAKE ONE TABLET BY MOUTH EVERY DAY Premarin 0.9 mg tablet RxNorm: 790908 1 Tablet(s) PO QD 04/10/2013 Inactive TAKE ONE TABLET BY MOUTH EVERY DAY Symbicort 160 mcg-4.5 mcg/actuation HFA aerosol inhaler RxNo rm: 2442007 2 Puff(s) INH BID 04/10/2013 10/06/2013 Inactive INHALE 2 PUFFS O RALLY TWO TIMES A DAY Synthroid 112 mcg tablet RxNorm: 281376 1 Tablet(s) PO QD TAKE ONE TABLET BY MOUTH EVERY DAY 04/10/2013 06/18/2013 Inactive Ventolin HFA 90 mcg/actuation Aerosol Inhaler RxNorm: 115926 2 Puff(s) INH Q4H 04/10/2013 No Stop Date Active prn fentanyl 100 mcg/hr transdermal patch RxNorm: 447673 1 Unit Dos e TD QD 04/03/2013 05/02/2013 Inactive Endocet 10 mg-325 mg tablet RxNorm: 8370873 1-2 Tablet(s) PO Q4H 05/02/2013 Inactive PRN PAIN Topamax 100 mg tablet RxNorm: 847589 1 Tablet(s) PO QHS 03/13/2013 Inactive Reglan 10 mg tablet RxNorm: 470370 1 Tablet(s) PO QID b efore meals and at bedtime 03/13/2013 04/09/2015 Inactive fluoxetine 20 mg capsule RxNorm: 251119 1 Capsule(s) PO QD 02/28/20 13 05/27/2013 Inactive Ventolin HFA 90 mcg/actuation Aerosol Inhaler RxNorm: 113252 2 Puff(s) INH Q4H 02/13/2013 No Stop Date Active prn fluoxetine 40 mg capsule RxNorm: 746964 1 Capsule(s) PO QD 01/31/20 13 07/24/2013 Inactive TAKE ONE CAPSULE BY MOUTH EV JANKI MORNING Soma 350 mg tablet RxNorm: 008031 1 Tablet(s) PO TID 01/20/201302/18 Inactive TAKE ONE TABLET BY MOUTH THREE TIMES A D AY Endocet 10 mg-325 mg tablet RxNorm: 4499690 1-2 Tablet(s) PO Q4H 02/06/2013 Inactive PRN PAIN MS Contin 200 mg tablet,extended release RxNorm: 480508 1 Table t(s) PO BID 01/18/2013 02/06/2013 Inactive Ventolin HFA 90 mcg/actuation Aerosol Inhaler RxNorm: 213046 2 Puff(s) INH Q4H 01/04/2013 No Stop Date Active prn Spiriva with HandiHaler 18 mcg & inhalation capsules RxNorm: 589416 1 Capsule(s) INH QD 12/29/2012 06/25/2013 Inactive INHALE CONTENTS OF 1 CAPSULE(S) WITH HANDIHALER ONCE DAILY Spiriva with HandiHaler 18 mcg & inhalation capsules RxNorm: 130831 1 Capsule(s) INH QD 12/26/2012 12/28/2012 Inactive INHALE CONTENTS OF 1 CAPSULE(S) WITH HANDIHALER ONCE DAILY Synthroid 112 mcg tablet RxNorm: 014267 Tablet(s) PO TA KE ONE TABLET BY MOUTH EVERY DAY 12/26/2012 04/09/2013 Inactive Endocet 10 mg-325 mg tablet RxNorm: 6430536 1-2 Tablet(s) PO Q4H 01/17/2013 Inactive PRN PAIN MS Contin 200 mg tablet,extended release RxNorm: 611078 1 Table t(s) PO BID 12/21/2012 01/17/2013 Inactive fluoxetine 20 mg capsule RxNorm: 203723 1 Capsule(s) PO QD 12/06/19 13 02/26/2013 Inactive Synthroid 112 mcg tablet RxNorm: 614476 1 Tablet(s) PO QD 12/06/2012 02/12/2019 Inactive TAKE ONE TABLET BY MOUTH EVERY DAY Ventolin HFA 90 mcg/actuation Aerosol Inhaler RxNorm: 483782 2 Puff(s) INH Q4H 12/06/2012 No Stop Date Active prn Reglan 10 mg tablet RxNorm: 329281 1 Tablet(s) PO QID b efore meals and at bedtime 11/24/2012 03/12/2013 Inactive Topamax 100 mg tablet RxNorm: 606910 1 Tablet(s) PO QHS 11/16/2012 Inactive Ventolin HFA 90 mcg/actuation Aerosol Inhaler RxNorm: 460656 2 Puff(s) INH Q4H 11/09/2012 No Stop Date Active prn gabapentin 800 mg tablet RxNorm: 440436 1 Tablet(s) PO QD 10/27/2012 04/09/2013 Inactive TAKE ONE TABLET BY MOUTH EVERY DAY metformin ER 500 mg tablet,extended release 24 hr RxNorm: 86 0977 1 Tablet(s) PO QD 10/27/2012 04/09/2013 Inactive TAKE ONE TABLET BY MOUTH EVERY DAY Symbicort 160 mcg-4.5 mcg/actuation HFA Aerosol Inhaler RxNo rm: 5309674 2 Puff(s) INH BID 10/27/2012 04/09/2013 Inactive INHALE 2 PUFFS O RALLY TWO TIMES A DAY Premarin 0.9 mg tablet RxNorm: 125233 1 Tablet(s) PO QD 10/27/2012 Inactive TAKE ONE TABLET BY MOUTH EVERY DAY Endocet 10 mg-325 mg tablet RxNorm: 8816753 1-2 Tablet(s) PO Q4H 11/24/2012 Inactive PRN PAIN MS Contin 200 mg tablet,extended release RxNorm: 698133 1 Table t(s) PO BID 10/26/2012 11/24/2012 Inactive Soma 350 mg tablet RxNorm: 741889 1 Tablet(s) PO TID 10/04/201211/02 Inactive TAKE ONE TABLET BY MOUTH THREE TIMES A D AY Ventolin HFA 90 mcg/actuation Aerosol Inhaler RxNorm: 506367 2 Puff(s) INH Q4H 10/03/2012 No Stop Date Active prn Daliresp 500 mcg tablet RxNorm: 9713549 1 Tablet(s) PO QD 09/28/2012 09/27/2012 Inactive Daliresp 500 mcg tablet RxNorm: 5480336 1 Tablet(s) PO QD 09/28/2012 04/25/2013 Inactive fluoxetine 20 mg capsule RxNorm: 835491 1 Capsule(s) PO QD 09/05/2012/06/2012 Inactive Topamax 50 mg tablet RxNorm: 054179 Tablet(s) PO for 1w k then 1 po q HS for 1wk then 2 po q HS 08/29/2012 09/27/2012 Inactive TAKE 1/2 TABLET BY MOUTH AT BEDTIME FOR 1 WEEK, THEN 1 TABLET AT BEDTIME FOR 1 WEEK, THEN 2 TABLETS AT BEDTIME Topamax 100 mg tablet RxNorm: 481213 1 Tablet(s) PO QHS 08/29/2012 Inactive Ventolin HFA 90 mcg/actuation Aerosol Inhaler RxNorm: 987175 2 Puff(s) INH Q4H 08/19/2012 No Stop Date Active prn Ventolin HFA 90 mcg/actuation Aerosol Inhaler RxNorm: 572217 2 Puff(s) INH Q4H 08/15/2012 No Stop Date Active prn Synthroid 112 mcg tablet RxNorm: 967496 1 Tablet(s) PO QD 08/10/2012 11/07/2012 Inactive TAKE ONE TABLET BY MOUTH EVERY DAY Synthroid 112 mcg tablet RxNorm: 768423 1 Tablet(s) PO QD 08/01/2012 08/09/2012 Inactive TAKE ONE TABLET BY MOUTH EVERY DAY Reglan 10 mg tablet RxNorm: 676165 1 Tablet(s) PO QID b efore meals and at bedtime 08/01/2012 11/23/2012 Inactive fluoxetine 40 mg capsule RxNorm: 076558 1 Capsule(s) PO QD 08/01/2001/27/2013 Inactive TAKE ONE CAPSULE BY MOUTH EV JANKI MORNING Ventolin HFA 90 mcg/actuation Aerosol Inhaler RxNorm: 377043 2 Puff(s) INH Q4H 08/01/2012 No Stop Date Active prn Soma 350 mg tablet RxNorm: 735269 1 Tablet(s) PO TID 07/20/201208/18 Inactive TAKE ONE TABLET BY MOUTH THREE TIMES A D AY Spiriva with HandiHaler 18 mcg & inhalation capsules RxNorm: 634432 1 Capsule(s) INH 07/01/2012 12/25/2012 Inactive INHALE CONTENTS OF 1 CAPSULE(S) WITH HANDIHALER ONCE DAILY Zithromax 250 mg Tab RxNorm: 387709 2 Tablet(s) PO QD 06/28/201206/22 Inactive MS Contin 200 mg tablet,extended release RxNorm: 473738 1 Table t(s) PO BID 06/28/2012 07/27/2012 Inactive Endocet 10 mg-325 mg tablet RxNorm: 5759576 1-2 Tablet(s) PO Q4H 07/27/2012 Inactive PRN PAIN Topamax 100 mg tablet RxNorm: 666321 1 Tablet(s) PO QHS 06/28/2012 Inactive 16.2 mg-0.1037 mg-0.0194 mg tablet RxNorm: 5710971 Tablet(s) PO PRN for gas and cramping 06/08/2012 08/23/2013 Inactive TAKE TWO TABLET S BY MOUTH THREE TIMES A DAY NEEDED FOR GAS AND CRAMPING Ventolin HFA 90 mcg/actuation Aerosol Inhaler RxNorm: 351504 2 Puff(s) INH Q4H 05/23/2012 No Stop Date Active prn Ventolin HFA 90 mcg/actuation Aerosol Inhaler RxNorm: 407585 2 Puff(s) INH Q4H 05/11/2012 No Stop Date Active prn Synthroid 112 mcg tablet RxNorm: 992115 1 Tablet(s) PO QD 05/09/2012 07/31/2012 Inactive TAKE ONE TABLET BY MOUTH EVERY DAY gabapentin 800 mg tablet RxNorm: 768221 1 Tablet(s) PO QD 05/09/2012 10/26/2012 Inactive TAKE ONE TABLET BY MOUTH EVERY DAY fluoxetine 40 mg capsule RxNorm: 723922 1 Capsule(s) PO QD 05/09/2007/31/2012 Inactive TAKE ONE CAPSULE BY MOUTH EV JANKI MORNING metformin ER 500 mg tablet,extended release 24 hr RxNorm: 86 0977 1 Tablet(s) PO QD 05/09/2012 10/26/2012 Inactive TAKE ONE TABLET BY MOUTH EVERY DAY Premarin 0.9 mg tablet RxNorm: 619870 1 Tablet(s) PO QD 05/09/2012 Inactive TAKE ONE TABLET BY MOUTH EVERY DAY Symbicort 160 mcg-4.5 mcg/actuation HFA Aerosol Inhaler RxNo rm: 6615160 2 Puff(s) INH BID 05/09/2012 10/26/2012 Inactive INHALE 2 PUFFS O RALLY TWO TIMES A DAY Endocet 10 mg-325 mg Tab RxNorm: 4333448 1-2 Tablet(s) PO Q4H 04/2705/26/2012 Inactive PRN PAIN MS Contin 200 mg Tab RxNorm: 520398 1 Tablet(s) PO BID 04/26/201202/2012 Inactive Ventolin HFA 90 mcg/actuation Aerosol Inhaler RxNorm: 034288 2 Puff(s) INH Q4H 04/25/2012 05/10/2012 Inactive prn Soma 350 mg tablet RxNorm: 349043 2 Tablet(s) PO TID 04/19/201207/19 Inactive TAKE ONE TABLET BY MOUTH THREE TIMES A D AY Ventolin HFA 90 mcg/actuation Aerosol Inhaler RxNorm: 628141 2 Puff(s) INH Q4H 04/12/2012 04/24/2012 Inactive prn Reglan 10 mg tablet RxNorm: 997387 1 Tablet(s) PO QID b efore meals and at bedtime 04/11/2012 07/31/2012 Inactive MS Contin 200 mg Tab RxNorm: 423372 1 Tablet(s) PO BID 03/30/201202/2012 Inactive Endocet 10 mg-325 mg Tab RxNorm: 9856247 1-2 Tablet(s) PO Q4H 03/3004/26/2012 Inactive PRN PAIN MS Contin 200 mg Tab RxNorm: 908051 1 Tablet(s) PO BID 03/02/201206/2012 Inactive Endocet 10 mg-325 mg Tab RxNorm: 6723374 1-2 Tablet(s) PO Q4H 03/0203/29/2012 Inactive PRN PAIN Daliresp 500 mcg tablet RxNorm: 6565038 1 Tablet(s) PO QD 03/01/2012 09/28/2012 Inactive MS Contin 200 mg Tab RxNorm: 071941 1 Tablet(s) PO BID 02/02/201208/2012 Inactive Endocet 10 mg-325 mg Tab RxNorm: 5092934 1-2 Tablet(s) PO Q4H 02/0103/01/2012 Inactive PRN PAIN fluoxetine 40 mg capsule RxNorm: 566072 1 Capsule(s) PO QD 02/02/2008/01/2012 Inactive TAKE ONE CAPSULE BY MOUTH EV JANKI MORNING Synthroid 112 mcg Tab RxNorm: 243420 1 Tablet(s) PO QD 01/18/2012 Inactive TAKE ONE TABLET BY MOUTH EVERY DAY lactulose 10 gram/15 mL oral solution RxNorm: 216474 [address]s) PO QD 01/18/2012 No Stop Date Active TAKE 1 TABLESPOON BY MOUTH ONCE DAILY Ventolin HFA 90 mcg/actuation Aerosol Inhaler RxNorm: 494698 2 Puff(s) INH Q4H 01/18/2012 04/11/2012 Inactive prn MS Contin 200 mg Tab RxNorm: 121686 1 Tablet(s) PO BID 01/05/201210/2012 Inactive Endocet 10 mg-325 mg Tab RxNorm: 1469905 1-2 Tablet(s) PO Q4H 01/0502/01/2012 Inactive PRN PAIN ProAir HFA 90 mcg/Actuation Aerosol Inhaler RxNorm: 743428 2 Pu ff(s) INH Q4H 12/21/2011 No Stop Date Active prn for wheezing or shortness of breath Spiriva with HandiHaler 18 mcg & inhalation Caps RxNorm: 580 261 1 Capsule(s) INH 12/21/2011 06/30/2012 Inactive INHALE CONTENTS OF 1 CAPSULE(S) WITH HANDIHALER ONCE DAILY Reglan 10 mg Tab RxNorm: 520156 1 Tablet(s) PO QID before meals and at bedtime 12/21/2011 04/10/2012 Inactive Synthroid 112 mcg Tab RxNorm: 765758 1 Tablet(s) PO QD 12/21/2011 Inactive TAKE ONE TABLET BY MOUTH EVERY DAY Endocet 10 mg-325 mg Tab RxNorm: 7289618 1-2 Tablet(s) PO Q4H 11/2512/24/2011 Inactive PRN PAIN MS Contin 200 mg Tab RxNorm: 369667 1 Tablet(s) PO BID 11/25/201112/2011 Inactive lactulose 10 gram/15 mL Oral Soln RxNorm: 930965 Milliliter(s) PO 1 No Stop Date Active TAKE 1 TABLESPOON BY MOUTH O NCE DAILY lactulose 10 gram/15 mL Oral Soln RxNorm: 891398 Milliliter(s) PO 1 12/12/2010 11/20/2011 Inactive TAKE 1 TABLESPOON BY MOUTH O NCE DAILY Premarin 0.9 mg Tab RxNorm: 537867 1 Tablet(s) PO QD 10/12/201105/08 Inactive TAKE ONE TABLET BY MOUTH EVERY DAY fluoxetine 20 mg capsule RxNorm: 402914 1 Capsule(s) PO QD 10/12/2009/05/2012 Inactive TAKE ONE CAPSULE BY MOUTH EV JANKI DAY Synthroid 112 mcg Tab RxNorm: 908744 1 Tablet(s) PO QD 10/12/2011 Inactive TAKE ONE TABLET BY MOUTH EVERY DAY metformin ER 500 mg 24 hr Tab RxNorm: 688312 1 Tablet(s) PO QD 09/2311/10/2011 Inactive TAKE ONE TABLET BY MOUTH GLYNN RY DAY Synthroid 112 mcg Tab RxNorm: 945540 1 Tablet(s) PO QD 10/12/2011 Inactive TAKE ONE TABLET BY MOUTH EVERY DAY metformin ER 500 mg 24 hr Tab RxNorm: 757322 1 Tablet(s) PO QD 09/2310/11/2011 Inactive TAKE ONE TABLET BY MOUTH GLYNN RY DAY Prevacid 30 mg Cap RxNorm: 529626 Capsule(s) PO 10/12/2011 01/25/2012 Inactive TAKE ONE CAPSULE BY MOUTH EVERY DAY Symbicort 160 mcg-4.5 mcg/actuation HFA Aerosol Inhaler RxNo rm: 5255190 2 Puff(s) INH BID 10/12/2011 05/08/2012 Inactive INHALE 2 PUFFS O RALLY TWO TIMES A DAY gabapentin 800 mg Tab RxNorm: 811659 1 Tablet(s) PO QD 10/12/2011 Inactive TAKE ONE TABLET BY MOUTH EVERY DAY MS Contin 200 mg Tab RxNorm: 138560 1 Tablet(s) PO BID 09/23/201111/2010 Inactive Endocet 10 mg-325 mg Tab RxNorm: 8445633 1-2 Tablet(s) PO Q4H 09/2310/22/2011 Inactive PRN PAIN Endocet 10 mg-325 mg Tab RxNorm: 0307829 1-2 Tablet(s) PO Q4H 08/2109/19/2011 Inactive PRN PAIN MS Contin 200 mg Tab RxNorm: 003779 1 Tablet(s) PO BID 08/21/2011 Inactive Diflucan 100 mg Tab RxNorm: 083914 1 Tablet(s) PO QD 08/10/201108/16 Inactive cefdinir 300 mg Cap RxNorm: 551134 2 Capsule(s) PO QD 08/10/201107/24 Inactive Reglan 10 mg Tab RxNorm: 381723 1 Tablet(s) PO AC & HS 07/15/2011 Inactive Endocet 10 mg-325 mg Tab RxNorm: 2326916 1-2 Tablet(s) PO Q4H 07/1508/13/2011 Inactive PRN PAIN One Touch Ultra Test strips RxNorm: Miscellaneous BID 06/11/2011 1 01/16/2014 Inactive TEST TWO TIMES A DAY lactulose 10 gram/15 mL Oral Soln RxNorm: 343469 Milliliter(s) PO 0 06/10/2011 10/11/2011 Inactive TAKE 1 TABLESPOON BY MOUTH O NCE DAILY Chantix Continuing Month Aníbal 1 mg Tab RxNorm: 039225 Tablet(s) PO 0 06/10/2011 11/02/2011 Inactive TAKE DIRECTED - PER [employer] GE INSTRUCTIONS fluoxetine 40 mg Cap RxNorm: 581011 Capsule(s) PO 06/10/2011 02/02/20 12 Inactive TAKE ONE CAPSULE BY MOUTH EVERY MORNING Chantix Continuing Month Aníbal 1 mg Tab RxNorm: 399737 Ta blet(s) PO TAKE DIRECTED - PER PACKAGE INSTRUCTIONS 05/13/2011 06/09/2011 Inactive Soma 350 mg Tab RxNorm: 751026 Tablet(s) PO TAKE ON E TABLET BY MOUTH THREE TIMES A DAY 05/13/2011 04/18/2012 Inactive Chantix Continuing Month Aníbal 1 mg Tab RxNorm: 002425 Ta blet(s) PO as directed per package instructions. 04/22/2011 05/12/2011 Inactive Symbicort 160 mcg-4.5 mcg/Actuation HFA Aerosol Inhaler RxNo rm: 1891342 HFA Aerosol Inhaler INH INHALE 2 PUFFS ORALLY TWO TIMES A DAY 04/13/2011 Inactive Synthroid 112 mcg Tab RxNorm: 193979 Tablet(s) PO TAKE ONE TABLET BY MOUTH EVERY DAY 04/13/2011 10/12/2011 Inactive Premarin 0.9 mg Tab RxNorm: 548459 Tablet(s) PO TAKE ON E TABLET BY MOUTH EVERY DAY 04/13/2011 10/12/2011 Inactive gabapentin 800 mg Tab RxNorm: 176055 Tablet(s) PO TAKE ONE TABLET BY MOUTH EVERY DAY 04/13/2011 10/12/2011 Inactive Prevacid 30 mg Cap RxNorm: 837690 1 Capsule(s) PO QD 04/13/201110/11 Inactive Spiriva with HandiHaler 18 mcg & inhalation Caps RxNorm: 580 261 Capsule(s) INH INHALE CONTENTS OF 1 CAPSULE(S) WITH HANDIHALER ONCE DAILY 04/13/2011 12/21/2011 Inactive metformin ER 500 mg 24 hr Tab RxNorm: 142947 Tablet(s) PO TAKE ONE TABLET BY MOUTH EVERY DAY 04/13/2011 10/12/2011 Inactive Soma 350 mg Tab RxNorm: 080465 1 Tablet(s) PO QID 03/30/2011 02/13/20 19 Inactive fluoxetine 20 mg Cap RxNorm: 961820 Capsule(s) PO TAKE ONE CAPSULE BY MOUTH EVERY DAY 03/25/2011 10/12/2011 Inactive cefdinir 300 mg Cap RxNorm: 472782 2 Capsule(s) PO QD 03/19/201105/2011 Inactive 16.2 mg-0.1037 mg-0.0194 mg Tab RxNorm: 8605156 2 Tablet(s) PO TID PRN for gas and cramping 03/16/2011 07/13/2011 Inactive Soma 350 mg Tab RxNorm: 474830 2 Tablet(s) PO TID 03/16/2011 03/29/20 11 Inactive Chantix Starting Month Aníbal 0.5 mg (11)-1 mg (3x14) Tab s in a Dose Pack RxNorm: 563323 Tablet(s) PO as directed 03/02/2011 No Stop Date Active diazepam 10 mg Tab RxNorm: 711856 1 Tablet(s) PO BID 02/10/201101/19 Inactive Zofran 4 mg tablet RxNorm: 250515 1 Tablet(s) PO Q4H prn nausea 02/16/2011 Inactive Diflucan 100 mg Tab RxNorm: 817768 1 Tablet(s) PO QD 01/18/201101/24 Inactive Premarin 0.625 mg/g Vaginal Cream RxNorm: 409863 VAG In sert 1gm vaginally at bedtime 3 times weekly 01/18/2011 02/12/2019 Inactive loratadine 10 mg Tab RxNorm: 4005181 1 Tablet(s) PO QD 12/17/201003/2012 Inactive Spiriva with HandiHaler 18 mcg & inhalation Caps RxNorm: 580 261 1 Capsule(s) INH QD 12/17/2010 04/12/2011 Inactive Diflucan 100 mg Tab RxNorm: 115132 1 Tablet(s) PO QD 12/17/201012/23 Inactive diazepam 10 mg Tab RxNorm: 729744 1 Tablet(s) PO BID and PRN 201002/12/2019 Inactive One Touch Ultra Test Strips RxNorm: InVt BID Zainab t blood sugar at least twice daily. 11/11/2010 06/11/2011 Inactive fluoxetine 40 mg Cap RxNorm: 026882 1 Capsule(s) PO QAM 11/11/2010 Inactive diazepam 10 mg Tab RxNorm: 169580 1 Tablet(s) PO BID and PRN 200911/12/2010 Inactive Bactrim DS 800 mg-160 mg Tab RxNorm: 221781 1 Tablet(s) PO BID 09/2210/15/2010 Inactive fluoxetine 20 mg Cap RxNorm: 101481 1 Capsule(s) PO QD 10/02/201008/2011 Inactive Bactrim DS 800 mg-160 mg Tab RxNorm: 300280 1 Tablet(s) PO BID 01/201010/03/2010 Inactive Zofran 4 mg Tab RxNorm: 792646 1 Tablet(s) PO Q4H prn nausea 200910/16/2010 Inactive 16.2 mg-0.1037 mg-0.0194 mg Tab RxNorm: 4022326 2 Tablet(s) PO TID PRN for gas and cramping 09/17/2010 10/21/2010 Inactive Gabapentin 800 mg Tab RxNorm: 947470 1 Tablet(s) PO QD 09/16/2010 Inactive ProAir HFA 90 mcg/Actuation Aerosol Inhaler RxNorm: 911293 2 Puff(s) INH Q4H prn shortness of breath 09/15/2010 12/13/2010 Inactive gabapentin 800 mg Tab RxNorm: 101316 1 Tablet(s) PO QD 09/15/2010 Inactive Prevacid 30 mg Cap RxNorm: 626343 1 Capsule(s) PO QD 09/15/201004/12 Inactive loratadine 10 mg Tab RxNorm: 3083147 1 Tablet(s) PO QD 09/15/2010 Inactive Premarin 0.9 mg Tab RxNorm: 686627 1 Tablet(s) PO QD 09/15/201004/12 Inactive Synthroid 112 mcg Tab RxNorm: 549060 1 Tablet(s) PO QD 09/15/2010 Inactive metformin ER 500 mg 24 hr Tab RxNorm: 684714 1 Tablet(s) PO QD 08/2304/12/2011 Inactive Symbicort 160 mcg-4.5 mcg/Actuation Inhalation HFA Aer osol Inhaler RxNorm: 2607039 2 Puff(s) INH BID 09/15/2010 04/12/2011 Inactive diazepam 10 mg Tab RxNorm: 278483 1 Tablet(s) PO BID and PRN 200910/13/2010 Inactive Phentermine 37.5 mg Cap RxNorm: 524502 1 Capsule(s) PO QD 09/02/2010 11/02/2011 Inactive ProAir HFA 90 mcg/Actuation Aerosol Inhaler RxNorm: 898002 2 Puff(s) INH Q4H prn shortness of breath 08/07/2010 No Stop Date Active Premarin 0.9 mg Tab RxNorm: 288480 1 Tablet(s) PO QD 08/07/201009/14 Inactive Loratadine 10 mg Tab RxNorm: 0036959 1 Tablet(s) PO QD 08/07/2010 Inactive Lactulose 10 gram/15 mL Oral Soln RxNorm: 261983 1 Unit Dose PO QD 08/07/2010 02/12/2019 Inactive Zofran 4 mg Tab RxNorm: 311867 1 Tablet(s) PO Q4H prn nausea 2009 No Stop Date Active Gabapentin 800 mg Tab RxNorm: 562669 1 Tablet(s) PO QD 08/07/2010 Inactive Synthroid 112 mcg Tab RxNorm: 943596 1 Tablet(s) PO QD 08/07/2010 Inactive Metformin ER 500 mg 24 hr Tab RxNorm: 243382 1 Tablet(s) PO QD 07/2309/14/2010 Inactive Vitamin D 1,000 unit Tab RxNorm: 631008 1 Tablet(s) PO TID 08/07/20 10 02/12/2019 Inactive Symbicort 160 mcg-4.5 mcg/Actuation Inhalation HFA Aer osol Inhaler RxNorm: 5748584 2 Puff(s) INH BID 08/07/2010 09/14/2010 Inactive Prevacid 30 mg Cap RxNorm: 222545 1 Capsule(s) PO QD 08/07/201009/14 Inactive Metformin ER 500 mg 24 hr Tab RxNorm: 634238 1 Tablet(s) PO QD 06/2308/06/2010 Inactive Vitamin D 1,000 unit Tab RxNorm: 299404 1 Tablet(s) PO TID 07/14/2008/06/2010 Inactive Synthroid 112 mcg Tab RxNorm: 008431 1 Tablet(s) PO QD 07/14/2010 Inactive Lactulose 10 gram/15 mL Oral Soln RxNorm: 823814 1 Unit Dose PO QD 07/14/2010 08/06/2010 Inactive Levaquin 500 mg Tab RxNorm: 333776 1 Tablet(s) PO QD 07/14/201007/27 Inactive Premarin 0.9 mg Tab RxNorm: 997050 1 Tablet(s) PO QD 07/14/201008/06 Inactive ProAir HFA 90 mcg/Actuation Aerosol Inhaler RxNorm: 437721 2 Puff(s) INH Q4H prn shortness of breath 07/14/2010 No Stop Date Active Prevacid 30 mg Cap RxNorm: 186961 1 Capsule(s) PO QD 07/14/201008/06 Inactive Zofran 4 mg Tab RxNorm: 099020 1 Tablet(s) PO Q4H prn nausea 2009 No Stop Date Active Symbicort 160 mcg-4.5 mcg/Actuation Inhalation HFA Aer osol Inhaler RxNorm: 6741805 2 Puff(s) INH BID 07/14/2010 08/06/2010 Inactive Loratadine 10 mg Tab RxNorm: 6460528 1 Tablet(s) PO QD 07/14/2010 Inactive Gabapentin 800 mg Tab RxNorm: 023269 1 Tablet(s) PO QD 07/14/2010 Inactive Metformin ER 500 mg 24 hr Tab RxNorm: 664167 1 Tablet(s) PO 010 07/13/2010 Inactive Diazepam 10 mg Tab RxNorm: 719367 1 Tablet(s) PO BID and PRN 200909/06/2010 Inactive Premarin 0.9 mg Tab RxNorm: 808680 1 Tablet(s) PO QD 06/09/201007/13 Inactive Zofran 4 mg Tab RxNorm: 958916 1 Tablet(s) PO Q4H prn nausea 2009 No Stop Date Active ProAir HFA 90 mcg/Actuation Aerosol Inhaler RxNorm: 225707 2 Puff(s) INH Q4H prn shortness of breath 06/09/2010 No Stop Date Active Gabapentin 800 mg Tab RxNorm: 638006 1 Tablet(s) PO QD 06/09/2010 Inactive Loratadine 10 mg Tab RxNorm: 3556683 1 Tablet(s) PO QD 06/09/2010 Inactive Lactulose 10 gram/15 mL Oral Soln RxNorm: 753513 1 Unit Dose PO QD 06/09/2010 07/13/2010 Inactive Prevacid 30 mg Cap RxNorm: 805172 1 Capsule(s) PO QD 06/09/201007/13 Inactive Synthroid 112 mcg Tab RxNorm: 919068 1 Tablet(s) PO QD 06/09/2010 Inactive Symbicort 160 mcg-4.5 mcg/Actuation Inhalation HFA Aer osol Inhaler RxNorm: 0970619 2 Puff(s) INH BID 06/09/2010 07/13/2010 Inactive Omnicef 300 mg Cap RxNorm: 619036 2 Capsule(s) PO QD 05/07/201005/20 Inactive Metformin 500 mg Tab RxNorm: 922222 1 Tablet(s) PO QD 05/06/201005/22 Inactive ProAir HFA 90 mcg/Actuation Aerosol Inhaler RxNorm: 918687 2 Puff(s) INH Q4H prn shortness of breath 05/06/2010 No Stop Date Active lactulose 10 gram/15 mL Oral Soln RxNorm: 050812 1 Unit Dose PO QD 05/06/2010 06/10/2011 Inactive Loratadine 10 mg Tab RxNorm: 2291899 1 Tablet(s) PO QD 05/06/2010 Inactive Synthroid 112 mcg Tab RxNorm: 701563 1 Tablet(s) PO QD 05/06/2010 Inactive Symbicort 160 mcg-4.5 mcg/Actuation Inhalation HFA Aer osol Inhaler RxNorm: 3588628 2 Puff(s) INH BID 05/06/2010 06/08/2010 Inactive Gabapentin 800 mg Tab RxNorm: 494594 1 Tablet(s) PO QD 05/06/2010 Inactive 16.2 mg-0.1037 mg-0.0194 mg Tab RxNorm: 0284799 2 Tablet(s) PO TID PRN for gas and cramping 05/06/2010 05/12/2010 Inactive Zofran 4 mg Tab RxNorm: 212651 1 Tablet(s) PO Q4H prn nausea 200904/13/2010 Inactive MS Contin 60 mg Tab RxNorm: 057551 3 Tablet(s) PO BID 04/09/201004/22 Inactive Soma 350 mg Tab RxNorm: 737150 2 Tablet(s) PO TID 04/09/2010 05/08/20 10 Inactive Symbicort 160 mcg-4.5 mcg/Actuation Inhalation HFA Aer osol Inhaler RxNorm: 1174486 2 Puff(s) INH BID 04/08/2010 05/05/2010 Inactive Doxycycline 100 mg Cap RxNorm: 7823973 1 Capsule(s) PO BID 04/08/20 10 04/17/2010 Inactive Triamterene-Hydrochlorothiazide 37.5 mg-25 mg Cap RxNorm: 19 8316 1 Capsule(s) PO QAM 04/08/2010 09/04/2010 Inactive fluoxetine 40 mg Cap RxNorm: 582711 1 Capsule(s) PO QAM 04/08/2010 Inactive Morphine SR 120 mg multiphase 24 hr Cap RxNorm: 164293 1 Capsul e(s) PO 03/11/2010 04/07/2010 Inactive Endocet 10 mg-325 mg Tab RxNorm: 0025316 1-2 Tablet(s) PO Q4H RI N PAIN 03/11/2010 04/09/2010 Inactive Savella 100 mg Tab RxNorm: 696737 1 Tablet(s) PO BID 03/10/201004/09 Inactive Soma 350 mg Tab RxNorm: 316716 1 Tablet(s) PO TID prn spasm 010 04/09/2010 Inactive Savella 100 mg Tab RxNorm: 084222 1 Tablet(s) PO BID 02/03/201004/09 Inactive Aspirin 81 mg Tab RxNorm: 080757 1 Tablet(s) PO QD No Start Date Active Zyrtec 10 mg Tab RxNorm: 1113022 1 Tablet(s) PO QD No Start Date Active One Touch Ultra Test Strips RxNorm: Misc test at least t wice daily. No Start Date Active coenzyme Q10 200 mg capsule RxNorm: 149526 1 Capsule(s) PO QD No Star t Date Active One Touch Ultra Test Strips RxNorm: InVt BID Zainab t blood sugar at least twice daily. No Start Date 11/10/2010 Inactive Gabapentin 800 mg Tab RxNorm: 810428 1 Tablet(s) PO QD No Start Date 05/05/2010 Inactive Abilify 5 mg tablet RxNorm: 496014 1 Tablet(s) PO QD No Start Date Inactive Chantix 1 mg Tab RxNorm: 822763 1 Tablet(s) PO BID No Start Date 10/22 Inactive Ozempic 0.25 mg or 0.5 mg (2 mg/1.5 mL) subcutaneous p en injector RxNorm: 5238542 .25 Milligram(s) SQ QW No Start Date 07/04/2019 Inactive lancets 28 gauge RxNorm: Miscellaneous As needed for blo od glucose sticks No Start Date 08/23/2013 Inactive potassium chloride ER 20 mEq tablet,extended release RxNorm: 268626 2 Tablet(s) PO QD No Start Date 09/26/2018 Inactive Ventolin HFA 90 mcg/actuation Aerosol Inhaler RxNorm: 010010 2 Puff(s) INH Q4H prn No Start Date 01/17/2012 Inactive potassium chloride ER 20 mEq tablet,extended release RxNorm: 723380 2 Tablet(s) PO QD No Start Date 10/19/2018 Inactive Januvia 100 mg tablet RxNorm: 747898 1 Tablet(s) PO QD No Start Date 09/10/2015 Inactive Medrol (Aníbal) 4 mg Tabs in a Dose Pack RxNorm: 814734 Tablet(s) PO N o Start Date 08/09/2011 Inactive as directed Zithromax Z-Aníbal 250 mg Tab RxNorm: 557199 Tablet(s) PO No Start Date 01/25/2012 Inactive as directed vitamin B6-vitamin E-magnesium tablet RxNorm: 1 Tablet(s ) PO QHS with INH No Start Date 03/30/2018 Inactive prednisone 20 mg Tab RxNorm: 421378 1 Tablet(s) PO TID for 1wk then 1 po BID for 1wk No Start Date 01/25/2012 Inactive furosemide 40 mg tablet RxNorm: 644689 1 Tablet(s) PO QAM No Start Date 10/09/2018 Inactive Vitamin D3 1000 units Capsule RxNorm: 1 Capsule(s) PO TID No S tart Date 03/19/2015 Inactive Zofran 4 mg Tab RxNorm: 265644 1 Tablet(s) PO Q4H prn nausea No Sta rt Date 04/13/2010 Inactive Premarin 0.625 mg/g Vaginal Cream RxNorm: 486332 1 Gram (s) VAG QHS 3 times a week No Start Date 09/22/2017 Inactive oxycodone 10 mg tablet RxNorm: 4603212 1-2 Tablet(s) PO QID as n eeded for pain No Start Date 11/04/2015 Inactive Nicoderm CQ 21 mg/24 hr daily Patch RxNorm: 412066 1 Applicatio n TD QD No Start Date 08/05/2015 Inactive Topamax 50 mg tablet RxNorm: 266851 1/2 Tablet(s) PO QH S for 1wk then 1 po q HS for 1wk then 2 po q HS No Start Date 06/27/2012 Inactive Chantix Starting Month Aníbal 0.5 mg (11)-1 mg (3x14) Tab s in a Dose Pack RxNorm: 205013 Tablet(s) PO as directed No Start Date 03/01/2011 Inactive Trulicity 0.75 mg/0.5 mL subcutaneous pen injector RxNorm: 1 531117 Milliliter(s) SQ No Start Date 07/04/2019 Inactive Medrol (Aníbal) 4 mg Tabs in a Dose Pack RxNorm: 172007 Tablet(s) PO N o Start Date 01/25/2012 Inactive as directed Duragesic 100 mcg/hr Transderm Patch RxNorm: 931341 2 A pplication TD Q48H for pain No Start Date 09/05/2013 Inactive Premarin 0.9 mg Tab RxNorm: 097710 1 Tablet(s) PO QD No Start Date Inactive Zithromax Z-Aníbal 250 mg Tab RxNorm: 681565 Tablet(s) PO as direc chinmay No Start Date 01/25/2012 Inactive ondansetron 8 mg disintegrating tablet RxNorm: 085200 1 Tablet(s) PO Q6H as needed No Start Date 10/10/2018 Inactive oxycodone 15 mg tablet RxNorm: 2361881 1 Tablet(s) PO QID as nee ded for pain No Start Date 03/05/2019 Inactive ProAir HFA 90 mcg/Actuation Aerosol Inhaler RxNorm: 347483 2 Puff(s) INH Q4H prn for wheezing or shortness of breath No Start Date 12/21/2011 Inactive pravastatin 40 mg tablet RxNorm: 661030 1/2 Tablet(s) PO QOD No Sta rt Date 04/09/2015 Inactive ipratropium-albuterol 0.5 mg-3 mg(2.5 mg base)/3 mL ne bulization soln RxNorm: 7491312 1 Unit Dose INH Q4H as needed No Start Date 09/09/2016 Inactive furosemide 40 mg tablet RxNorm: 764438 1 Tablet(s) PO QAM as ne eded No Start Date 09/24/2019 Inactive Vitamin D2 oral RxNorm: 4018 oral No Start Date 03/18/2015 Inacti ve pravastatin 40 mg tablet RxNorm: 581382 1/2 Tablet(s) PO QD No Star t Date 04/09/2015 Inactive ondansetron HCl 4 mg tablet RxNorm: 866772 1 Tablet(s) PO Q4H as needed for nausea and vomiting No Start Date 04/07/2016 Inactive furosemide 40 mg tablet RxNorm: 195486 2 Tablet(s) PO QAM No Start Date 09/26/2018 Inactive gabapentin 800 mg tablet RxNorm: 038398 1/2 Tablet(s) PO BID No Sta rt Date 06/21/2017 Inactive gabapentin 800 mg tablet RxNorm: 313436 1/2 Tablet(s) PO BID No Sta rt Date 07/05/2017 Inactive ProAir HFA 90 mcg/Actuation Aerosol Inhaler RxNorm: 026815 2 Puff(s) INH Q4H prn shortness of breath No Start Date 05/05/2010 Inactive scopolamine 1 mg over 3 days transdermal patch RxNorm: 76416 2 1 Application TD behind ear. Take off after three days No Start Date 10/10/2018 Inactive Metformin 500 mg Tab RxNorm: 204133 1 Tablet(s) PO QD No Start Date 0 05/05/2010 Inactive MS Contin 200 mg Tab RxNorm: 041962 1 Tablet(s) PO BID No Start Date 08/20/2011 Inactive Belladonna-Phenobarbital 48 mg tablet,extended release RxNor m: 2 Tablet(s) PO TID No Start Date 06/04/2016 Inactive Synthroid 112 mcg Tab RxNorm: 983867 1 Tablet(s) PO QD No Start Date 05/05/2010 Inactive Zegerid 40 mg-1.1 gram Cap RxNorm: 234544 1 Capsule(s) PO QD No Sta rt Date 01/25/2012 Inactive Premarin 0.625 mg/g Vaginal Cream RxNorm: 997473 VAG In sert 1gm vaginally at bedtime 3 times weekly No Start Date 01/17/2011 Inactive potassium chloride ER 20 mEq tablet,extended release RxNorm: 731491 1 Tablet(s) PO QD No Start Date 04/24/2019 Inactive methocarbamol 750 mg tablet RxNorm: 836260 2 Tablet(s) PO TID as needed for muscle spasm No Start Date 07/08/2014 Inactive Biaxin XL Aníbal 500 mg 24 hr Tab RxNorm: 132922 Tablet(s) PO as d irected No Start Date 04/24/2013 Inactive Vitamin D3 1,000 unit tablet RxNorm: 626384 3 Tablet(s) PO QD No St art Date 06/01/2017 Inactive Morphine SR 120 mg multiphase 24 hr Cap RxNorm: 126124 1 Capsul e(s) PO BID No Start Date 04/09/2010 Inactive Silvadene 1 % topical cream RxNorm: 625921 1 Application TOP BI D to burn area No Start Date 01/31/2017 Inactive Prednisone 20 mg Tab RxNorm: 553607 1 Tablet(s) PO TID for 3days then BID for 4days No Start Date 01/25/2012 Inactive gabapentin 600 mg tablet RxNorm: 563065 1 Tablet(s) PO BID No Start Date 01/21/2015 Inactive topiramate 50 mg tablet RxNorm: 518543 1 Tablet(s) PO QHS No Start Date 03/30/2018 Inactive Januvia 100 mg tablet RxNorm: 387076 1/2 Tablet(s) PO QD No Start D ate 12/25/2015 Inactive Diazepam 10 mg Tab RxNorm: 415008 1 Tablet(s) PO BID and PRN No Sta rt Date 06/08/2010 Inactive Medication Administered No Medication Administered data Immunizations Vaccine Codes Date Status Influenza CVX: 141 09/28/2012 Pneumovax Unknown 09/28/2012 Influenza (Adult) CVX: 141 09/02/2010 Results No Results data Procedures Procedure Codes Date THER/PROPH/DIAG INJ SC/IM CPT-4: 41069 07/10/2019 METHYLPREDNISOLONE INJECTION CPT-4: J2930 07/10/2019 URINALYSIS NONAUTO W/O SCOPE CPT-4: 27009 09/06/2018 URINE CULTURE/ COLONY COUNT CPT-4: 06043 09/06/2018 DRAIN/INJECT JOINT/BURSA CPT-4: 78184 04/29/2017 TRIAMCINOLONE ACET INJ NOS CPT-4: J3301 04/29/2017 DEXAMETHASONE SODIUM PHOS CPT-4: J1100 04/29/2017 INFLUENZA ASSAY W/OPTIC CPT-4: 98427 12/01/2016 RESPIRATORY CULTURE & STAIN CPT-4: 52481 07/09/2016 TB INTRADERMAL TEST CPT-4: 59785 04/21/2016 DRAIN/INJECT JOINT/BURSA CPT-4: 16847 11/07/2013 METHYLPREDNISOLONE 40 MG INJ CPT-4: J1030 11/07/2013 TRIAMCINOLONE ACET INJ NOS CPT-4: J3301 11/07/2013 DRAIN/INJECT JOINT/BURSA CPT-4: 08052 08/08/2013 METHYLPREDNISOLONE 40 MG INJ CPT-4: J1030 08/08/2013 TRIAMCINOLONE ACET INJ NOS CPT-4: J3301 08/08/2013 FLU VACCINE 3 YRS & > IM UP 64 CPT-4: 64276 2 PNEUMOCOCCAL VACC 23 ADITYA IM CPT-4: 35376 09/28/2012 IMMUNIZATION ADMIN CPT-4: 88224 09/28/2012 IMMUNIZATION ADMIN EACH ADD CPT-4: 48511 09/28/2012 FLU VACCINE 3 YRS & > IM UP 64 CPT-4: 43406 0 IMMUNIZATION ADMIN CPT-4: 18286 09/02/2010 METHYLPREDNISOLONE INJECTION CPT-4: J2930 05/07/2010 THER/PROPH/DIAG INJ SC/IM CPT-4: 03341 05/07/2010 Vital Signs Date Vital 11/29/2019 Blood [...] 1: 122/78 Code: 8480-6 BMI: 29.5 Code: 34397-7 Heart Rate 1: 76 bpm Height: 5'4" Respiratory Rate: 20 bpm SpO2: 96% Tempera ture: 37.0 (C) / 98.6 (F) Weight: 172 lbs 01/25/2019 Blood Pressure 1: 132/80 Code: 8480-6 BMI: 29.7 Code: 58221-9 Heart Rate 1: 84 bpm Height: 5'4" Respiratory Rate: 22 bpm SpO2: 98% Tempera ture: 36.9 (C) / 98.4 (F) Weight: 173 lbs 01/03/2019 Blood Pressure 1: 116/70 Code: 8480-6 BMI: 29.5 Code: 07336-2 Heart Rate 1: 92 bpm Height: 5'4" Respiratory Rate: 24 bpm SpO2: 98% Tempera ture: 37.2 (C) / 98.9 (F) Weight: 172 lbs 11/21/2018 Blood Pressure 1: 146/82 Code: 8480-6 BMI: 28.2 Code: 72250-1 Heart Rate 1: 88 bpm Height: 5'4" Respiratory Rate: 22 bpm SpO2: 97% Tempera ture: 36.9 (C) / 98.4 (F) Weight: 164 lbs 10/27/2018 Blood Pressure 1: 122/70 Code: 8480-6 BMI: 27.6 Code: 33441-9 Heart Rate 1: 88 bpm Height: 5'4" Respiratory Rate: 20 bpm SpO2: 96% Tempera ture: 36.8 (C) / 98.3 (F) Weight: 161 lbs 10/18/2018 Blood Pressure 1: 126/70 Code: 8480-6 BMI: 28.3 Code: 16315-7 Heart Rate 1: 76 bpm Height: 5'4" Respiratory Rate: 20 bpm SpO2: 95% Tempera ture: 37.0 (C) / 98.6 (F) Weight: 165 lbs 09/27/2018 Blood Pressure 1: 124/78 Code: 8480-6 BMI: 27.1 Code: 28485-3 Heart Rate 1: 88 bpm Height: 5'4" Respiratory Rate: 20 bpm SpO2: 98% Tempera ture: 36.4 (C) / 97.6 (F) Weight: 158 lbs 09/14/2018 Blood Pressure 1: 140/72 Code: 8480-6 BMI: 26.1 Code: 84659-5 Heart Rate 1: 100 bpm Height: 5'4" Respiratory Rate: 20 bpm SpO2: 97% Tempera ture: 36.9 (C) / 98.4 (F) Weight: 152 lbs 09/06/2018 Blood Pressure 1: 156/82 Code: 8480-6 BMI: 26.3 Code: 63465-8 Heart Rate 1: 100 bpm Height: 5'4" Respiratory Rate: 28 bpm SpO2: 95% Tempera ture: 37.2 (C) / 98.9 (F) Weight: 153 lbs 08/16/2018 Blood Pressure 1: 130/78 Code: 8480-6 Heart Rate 1: 87 bpm Respiratory Rate: 24 bpm SpO2: 94% Temperature: 36.9 (C) / 98.4 (F) We ight: 147 lbs 8 oz 07/07/2018 Blood Pressure 1: 116/78 Code: 8480-6 BMI: 22.7 Code: 61917-8 Heart Rate 1: 88 bpm Height: 5'4" Respiratory Rate: 22 bpm SpO2: 98% Tempera ture: 36.5 (C) / 97.7 (F) Weight: 132 lbs 05/31/2018 Blood Pressure 1: 128/78 Code: 8480-6 BMI: 22.3 Code: 82333-8 Heart Rate 1: 92 bpm Height: 5'4" Respiratory Rate: 26 bpm SpO2: 94% Tempera ture: 36.7 (C) / 98.1 (F) Weight: 130 lbs 03/31/2018 Blood Pressure 1: 136/78 Code: 8480-6 BMI: 21.5 Code: 91468-7 Heart Rate 1: 76 bpm Height: 5'4" Respiratory Rate: 24 bpm SpO2: 95% Tempera ture: 36.8 (C) / 98.3 (F) Weight: 125 lbs 01/26/2018 Blood Pressure 1: 142/64 Code: 8480-6 BMI: 20.6 Code: 42853-2 Heart Rate 1: 90 bpm Height: 5'4" Respiratory Rate: 24 bpm SpO2: 92% Tempera ture: 36.3 (C) / 97.3 (F) Weight: 120 lbs 10/26/2017 Blood Pressure 1: 124/70 Code: 8480-6 BMI: 20.3 Code: 61696-8 Heart Rate 1: 76 bpm Height: 5'4" Respiratory Rate: 22 bpm SpO2: 94% Tempera ture: 36.7 (C) / 98.1 (F) Weight: 118 lbs 09/23/2017 Blood Pressure 1: 106/70 Code: 8480-6 BMI: 19.2 Code: 14589-9 Heart Rate 1: 76 bpm Height: 5'4" Respiratory Rate: 20 bpm SpO2: 94% Tempera ture: 36.8 (C) / 98.3 (F) Weight: 112 lbs 08/12/2017 Blood Pressure 1: 116/68 Code: 8480-6 BMI: 20.1 Code: 09627-2 Heart Rate 1: 80 bpm Height: 5'4" Respiratory Rate: 22 bpm SpO2: 95% Tempera ture: 36.8 (C) / 98.2 (F) Weight: 117 lbs 07/06/2017 Blood Pressure 1: 136/78 Code: 8480-6 BMI: 20.6 Code: 75721-1 Heart Rate 1: 76 bpm Height: 5'4" Respiratory Rate: 24 bpm SpO2: 96% Tempera ture: 36.8 (C) / 98.2 (F) Weight: 120 lbs 06/02/2017 Blood Pressure 1: 112/70 Code: 8480-6 Heart Rate 1: 92 bpm Height: 5'4" Respiratory Rate: 24 bpm SpO2: 95% Temperature: 37.0 (C) / 98.6 (F) Weight: 04/29/2017 Blood Pressure 1: 94/52 Code: 8480-6 BMI: 19.6 C ode: 38677-7 Heart Rate 1: 84 bpm Height: 5'4" [...] 92/58 Code: 8480-6 BMI: 19.2 C ode: 47396-6 Heart Rate 1: 84 bpm Height: 5'4" Respiratory Rate: 26 bpm SpO2: 95% Tempera ture: 36.7 (C) / 98.0 (F) Weight: 112 lbs 12/01/2016 Blood Pressure 1: 114/70 Code: 8480-6 BMI: 19.2 Code: 80574-6 Heart Rate 1: 96 bpm Height: 5'4" Respiratory Rate: 28 bpm SpO2: 93% Tempera ture: 38.3 (C) / 101.0 (F) Weight: 112 lbs 10/27/2016 Blood Pressure 1: 126/66 Code: 8480-6 BMI: 19.6 Code: 20967-2 Heart Rate 1: 92 bpm Height: 5'4" Respiratory Rate: 28 bpm SpO2: 90% Tempera ture: 36.8 (C) / 98.3 (F) Weight: 114 lbs 09/09/2016 Blood Pressure 1: 126/74 Code: 8480-6 Heart Rate 1: 104 bpm Height: 5'4" Respiratory Rate: 32 bpm SpO2: 88% Temperature: 37 .2 (C) / 99.0 (F) 08/26/2016 Blood Pressure 1: 134/82 Code: 8480-6 BMI: 22.0 Code: 79870-5 Heart Rate 1: 84 bpm Height: 5'4" Respiratory Rate: 24 bpm SpO2: 94% Tempera ture: 36.8 (C) / 98.3 (F) Weight: 128 lbs 05/21/2016 Blood Pressure 1: 142/80 Code: 8480-6 BMI: 21.6 Code: 67161-7 Heart Rate 1: 104 bpm Height: 5'4" Respiratory Rate: 22 bpm SpO2: 93% Tempera ture: 36.0 (C) / 96.8 (F) Weight: 126 lbs 03/25/2016 Blood Pressure 1: 126/62 Code: 8480-6 Heart Rate 1: 88 bpm Respiratory Rate: 20 bpm SpO2: 92% Temperature: 36.8 (C) / 98.3 (F) We ight: 130 lbs 01/23/2016 Blood Pressure 1: 146/82 Code: 8480-6 BMI: 24.1 Code: 54449-6 Heart Rate 1: 92 bpm Height: 5'3" Respiratory Rate: 22 bpm Temperature: 37 .1 (C) / 98.8 (F) Weight: 136 lbs 12/26/2015 Blood Pressure 1: 142/78 Code: 8480-6 BMI: 24.6 Code: 04112-0 Heart Rate 1: 78 bpm Height: 5'3" Respiratory Rate: 20 bpm Temperature: 36 .7 (C) / 98.1 (F) Weight: 139 lbs 12/03/2015 Blood Pressure 1: 126/60 Code: 8480-6 BMI: 24.6 Code: 29682-1 Heart Rate 1: 100 bpm Height: 5'3" Respiratory Rate: 28 bpm Temperature: 37 .6 (C) / 99.6 (F) Weight: 139 lbs 09/10/2015 Blood Pressure 1: 124/64 Code: 8480-6 BMI: 23.7 Code: 63242-0 Heart Rate 1: 88 bpm Height: 5'3" Respiratory Rate: 24 bpm SpO2: 95% Tempera ture: 36.4 (C) / 97.6 (F) Weight: 134 lbs 08/06/2015 Blood Pressure 1: 114/76 Code: 8480-6 BMI: 23.2 Code: 60359-8 Heart Rate 1: 88 bpm Height: 5'3" Respiratory Rate: 22 bpm Temperature: 36 .6 (C) / 97.9 (F) Weight: 131 lbs 07/18/2015 Blood Pressure 1: 144/78 Code: 8480-6 BMI: 23.7 Code: 50613-6 Heart Rate 1: 84 bpm Height: 5'3" Respiratory Rate: 20 bpm Temperature: 37 .2 (C) / 99.0 (F) Weight: 134 lbs 04/10/2015 Blood Pressure 1: 110/64 Code: 8480-6 Heart Rate 1: 80 bpm Height: Respiratory Rate: 20 bpm Temperature: 37.1 (C) / 98.8 (F) Weight: 03/05/2015 Blood Pressure 1: 136/80 Code: 8480-6 BMI: 23.9 Code: 74448-0 Heart Rate 1: 76 bpm Height: 5'3" Respiratory Rate: 24 bpm Temperature: 37 .0 (C) / 98.6 (F) Weight: 135 lbs 01/30/2015 Blood Pressure 1: 142/80 Code: 8480-6 BMI: 23.0 Code: 38270-6 Heart Rate 1: 96 bpm Height: 5'3" Respiratory Rate: 22 bpm Temperature: 36 .2 (C) / 97.2 (F) Weight: 130 lbs 01/02/2015 Blood Pressure 1: 124/70 Code: 8480-6 BMI: 23.4 Code: 23537-1 Heart Rate 1: 84 bpm Height: 5'3" Respiratory Rate: 24 bpm SpO2: 95% Tempera ture: 36.9 (C) / 98.5 (F) Weight: 132 lbs 10/03/2014 Blood Pressure 1: 106/68 Code: 8480-6 BMI: 22.5 Code: 16852-0 Heart Rate 1: 88 bpm Height: 5'3" Respiratory Rate: 24 bpm Temperature: 37 .0 (C) / 98.6 (F) Weight: 127 lbs 08/27/2014 Blood Pressure 1: 124/68 Code: 8480-6 BMI: 21.1 Code: 23358-9 Heart Rate 1: 88 bpm Height: 5'3" [...] 1: 120/70 Code: 8480-6 BMI: 19.2 Code: 24786-0 Heart Rate 1: 70 bpm Height: 5'4" Respiratory Rate: 20 bpm Temperature: 36 .9 (C) / 98.4 (F) Weight: 112 lbs 06/28/2013 Blood Pressure 1: 102 Code: 8480-6 BMI: 19.6 Code: 43852-1 Heart Rate 1: 76 bpm Height: 5'4" Respiratory Rate: 20 bpm Temperature: 36 .8 (C) / 98.2 (F) Weight: 114 lbs 05/31/2013 Blood Pressure 1: 106/70 Code: 8480-6 BMI: 18.9 Code: 14177-6 Heart Rate 1: 100 bpm Height: 5'4" Respiratory Rate: 20 bpm Temperature: 36 .4 (C) / 97.6 (F) Weight: 110 lbs 05/03/2013 Blood Pressure 1: 126/70 Code: 8480-6 BMI: 19.1 Code: 73068-4 Heart Rate 1: 88 bpm Height: 5'4" Respiratory Rate: 20 bpm Temperature: 37 .1 (C) / 98.8 (F) Weight: 111 lbs 04/25/2013 Blood Pressure 1: 114/68 Code: 8480-6 BMI: 19.4 Code: 05610-8 Heart Rate 1: 92 bpm Height: 5'4" Respiratory Rate: 24 bpm SpO2: 96% Tempera ture: 37.7 (C) / 99.8 (F) Weight: 113 lbs 03/08/2013 Blood Pressure 1: 9468 Code: 8480-6 BMI: 21.3 C ode: 81915-0 Heart Rate 1: 88 bpm Height: 5'4" Respiratory Rate: 24 bpm Temperature: 37 .0 (C) / 98.6 (F) Weight: 124 lbs 02/07/2013 Blood Pressure 1: 106/64 Code: 8480-6 BMI: 21.8 Code: 07921-8 Heart Rate 1: 84 bpm Height: 5'4" Respiratory Rate: 22 bpm Temperature: 36 .8 (C) / 98.2 (F) Weight: 127 lbs 01/10/2013 Blood Pressure 1: 122/68 Code: 8480-6 BMI: 21.6 Code: 19668-8 Heart Rate 1: 94 bpm Height: 5'4" SpO2: 94% Temperature: 36.7 (C) / 98.1 (F) Weight: 126 lbs 09/28/2012 Blood Pressure 1: 124/78 Code: 8480-6 BMI: 24.9 Code: 66105-1 Heart Rate 1: 92 bpm Height: 5'4" Respiratory Rate: 20 bpm Temperature: 36 .7 (C) / 98.1 (F) Weight: 145 lbs 06/28/2012 Blood Pressure 1: 134/80 Code: 8480-6 BMI: 24.9 Code: 48813-3 Heart Rate 1: 76 bpm Height: 5'4" Respiratory Rate: 20 bpm Temperature: 36 .8 (C) / 98.2 (F) Weight: 145 lbs 05/03/2012 Blood Pressure 1: 108/62 Code: 8480-6 BMI: 25.6 Code: 12015-8 Heart Rate 1: 88 bpm Height: 5'4" Temperature: 36.2 (C) / 97.2 (F) Weight: 149 lbs 03/01/2012 Blood Pressure 1: 124/66 Code: 8480-6 BMI: 25.1 Code: 44864-6 Heart Rate 1: 76 bpm Height: 5'4" Respiratory Rate: 20 bpm Temperature: 36 .6 (C) / 97.9 (F) Weight: 146 lbs 01/26/2012 Blood Pressure 1: 118/82 Code: 8480-6 BMI: 25.1 Code: 95802-8 Heart Rate 1: 74 bpm Height: 5'4" Temperature: 36.8 (C) / 98.2 (F) Weight: 146 lbs 11/03/2011 Blood Pressure 1: 126/80 Code: 8480-6 BMI: 27.3 Code: 41749-0 Heart Rate 1: 72 bpm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 vagi nitis Premarin vaginal cream Smoking cessation 12/17/2010 Appointment: Vika Renteria WPtel: [address] [place] [address] Follow Up 12/17/2010 Patient Education: Patient Medication Summary Completed 12/17/2010 Appointment: Vika Renteria WPtel: [address] [place] [address] FOLLOW UP 11/06/2010 Visit Plan: Start PT Use SVNs every 4hrs Smoking Cessation Change MS Contin to 200mg q 12hrs 2010 Appointment: Vika Renteriatel: [address] [place], [place] [phone] FOLLOW UP 2010 Patient Education: Patient Medication Summary Completed 2010 Visit Plan: Prednisone taper for pain an d lungs 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 Increase fluoxetine to 60mg QD for acute stress reaction 10/02/2010 Appointment: Vika Renteria WPtel: [address] [place], [place] [id number] FOLLOW UP 10/02/2010 Patient Education: Patient Medication Summary Completed 10/02/2010 Visit Plan: Check CT Head, Cervical, Tho racic, and Lumbar Spine Cont current meds Bactrim for left toe 09/24/2010 Appointment: Vika Renteria WPtel: [address] [place], [place] [phone] CHECK UP 09/24/2010 Patient Education: Patient Medication Summary Completed 09/24/2010 Appointment: Vika Renteriatel: [address] [place], [place] [phone] FOLLOW UP 09/02/2010 Patient Education: Patient Medication Summary Completed 09/02/2010 Visit Plan: Return for 2nd epidural Obse rve right leg lesion Cont Symbicort and Spiriva 07/14/2010 Appointment: Vika Renteria WPtel: [address] [place], [place] [phone] FOLLOW UP 07/14/2010 Patient Education: Patient Medication Summary Completed 07/14/2010 Appointment: Vika Renteria WPtel: [address] [place], [place] [phone] [place] FOLLOW UP 05/27/2010 Appointment: Vika Renteria WPtel: [address] [place], [place] [phone] [place] FOLLOW UP 05/14/2010 Visit Plan: SVN with Albuterol 0.083% Q4 hrs and Q2hrs prn. Restart Spiriva Smoking Cessation 05/07/2010 Appointment: Vika Renteria WPtel: [phone] [id number] FOLLOW UP 05/07/2010 Patient Education: Patient Medication Summary Completed 05/07/2010 Appointment: Vika Renteria WPtel: [phone] [phone] ACUTE ILLNESS 04/08/2010 Patient Education: Patient Medication Summary Completed 04/08/2010 Referral: Kyle Billings WPtel: [phone] [facility] [place] Referral Completed Referral: Jaylan Matute WPtel: [address] [facility] [address] [id number] [place] Referral Initiated Referral: Kyle Billings WPtel: [phone] [facility] [place] Referral Appointment Requested Instructions Comment [...]
--- OUTSIDE RECORDS SUMMARY | 2020-04-24 22:29 | XMS REPORT | CCD ---
Author Author Yana Renteria D.O. 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 Name Role Phone Vika Renteria D.O., PP Unavailable CCM Unavailable Summary Purpose Interface Exchange Insurance Providers Payer name Policy type / Coverage type Covered constitution party ID Effective Begin Date Effective End Date [employer] [facility] Medicaid [id number] U nknown Family History Family History data not found Social History Social History Element Codes Description Effective Dates Marital status Unknown 06/28/[address]: 80724305 Currently smokes tobacco 05/2013 Allergies, Adverse Reactions, Alerts Substance Reaction Codes Entered Date Inactivated Date Status Other Unknown 06/28/2013 No Inactive Date Active * NO KNOWN FOOD ALLERGIES Unknown 06/28/2013 No Inactiv e Date Active * NO KNOWN DRUG ALLERGIES Unknown 05/07/2010 No Inactiv e Date Active Problems Condition Codes Effective Dates Condition Status Spinal stenosis, lumbar region with neurogenic claudic ation ICD-9: 724.03 ICD-10: M48.062 10/30/2019 Active Spondylosis without myelopathy or radiculopathy, cervi brooks region ICD-9: 721.0 ICD-10: M47.812 10/30/2019 Active Allergy to morphine ICD-9: V14.5 ICD-10: Z88.5 02/13/2020 Active Chronic pain syndrome ICD-9: 338.4 ICD-10: [...] Start Date Stop Date Status Fill Instructions prednisolone 5 mg tablet RxNorm: 820878 1 Tablet(s) Oral two ti mes a day 02/22/2020 03/23/2020 Active prednisolone 5 mg tablet RxNorm: 793263 1 Tablet(s) Oral two ti mes a day 02/22/2020 02/21/2020 Inactive Symbicort 160 mcg-4.5 mcg/actuation HFA aerosol inhaler RxNo rm: 3754494 INHALE TWO PUFFS BY MOUTH TWICE A DAY 02/19/2020 No Stop Date Active Daliresp 500 mcg tablet RxNorm: 5197090 TAKE ONE TABLET BY MOUTH DAILY 02/19/2020 No Stop Date Active oxycodone 30 mg tablet RxNorm: 4639436 1 Tablet(s) Oral four times a day replaces MS Contin 02/13/2020 03/14/2020 Active prednisone 20 mg tablet RxNorm: 542039 1 Tablet(s) Oral two yumi es a day 02/13/2020 02/20/2020 Inactive levothyroxine 25 mcg tablet RxNorm: 785820 TAKE ONE TAB LET BY MOUTH EVERY MORNING 02/09/2020 No Stop Date Active MS Contin 200 mg tablet,extended release RxNorm: 549382 1 Tablet(s) Oral two times a day 02/01/2020 03/01/2020 Active cyclobenzaprine 10 mg tablet RxNorm: 716573 TAKE ONE TA BLET BY MOUTH THREE TIMES A DAY NEEDED 01/31/2020 No Stop Date Active Premarin 0.45 mg tablet RxNorm: 767924 TAKE ONE TABLET BY MOUTH DAILY 01/31/2020 No Stop Date Active metformin 500 mg tablet RxNorm: 951540 1 Tablet(s) Oral QD 01/31/20 20 04/29/2020 Active gabapentin 300 mg capsule RxNorm: 547492 TAKE ONE CAPSULE BY [facility] TWICE A DAY 01/16/2020 No Stop Date Active potassium chloride ER 20 mEq tablet,extended release RxNorm: 071118 TAKE ONE TABLET BY MOUTH DAILY 01/08/2020 07/05/2020 Active ProAir HFA 90 mcg/actuation aerosol inhaler RxNorm: 771123 INHALE ONE PUFF BY MOUTH EVERY 4 HOURS FOR WHEEZING OR FOR SHORTNESS OF BREATH 01/04/2020 No Stop Date Active metformin 500 mg tablet RxNorm: 785062 1 Tablet(s) Oral QD 01/04/20 20 01/30/2020 Inactive MS Contin 200 mg tablet,extended release RxNorm: 154278 1 Tablet(s) Oral two times a day 01/02/2020 01/31/2020 Inactive Pulmicort 1 mg/2 mL suspension for nebulization RxNorm: 6168 19 USE ONE VIAL VIA NEBULIZER BY MOUTH TWICE A DAY 12/21/2019 No Stop Date Active furosemide 40 mg tablet RxNorm: 314484 TAKE ONE TABLET BY MOUTH EVERY MORNING NEEDED 12/20/2019 No Stop Date Active levothyroxine 25 mcg tablet RxNorm: 262465 TAKE ONE TAB LET BY MOUTH EVERY MORNING 12/20/2019 02/08/2020 Inactive MS Contin 200 mg tablet,extended release RxNorm: 544866 1 Tablet(s) Oral two times a day 12/05/2019 01/01/2020 Inactive Medrol (Aínbal) 4 mg tablets in a dose pack RxNorm: 555396 6 Tablet(s) Oral QD --then as directed 11/30/2019 12/05/2019 Inactive MS Contin 200 mg tablet,extended release RxNorm: 970459 1 Tablet(s) Oral two times a day 11/29/2019 12/04/2019 Inactive cyclobenzaprine 10 mg tablet RxNorm: 645489 TAKE ONE TA BLET BY MOUTH THREE TIMES A DAY NEEDED 11/21/2019 01/30/2020 Inactive MS Contin 200 mg tablet,extended release RxNorm: 513894 1 Tablet(s) Oral two times a day replaces 100mg dose 11/03/2019 11/02/2019 Inactive MS Contin 200 mg tablet,extended release RxNorm: 749827 1 Tablet(s) Oral two times a day replaces 100mg dose 11/03/2019 11/29/2019 Inactive ferrous sulfate 325 mg (65 mg iron) tablet RxNorm: 633805 1 Tab let(s) Oral QD 10/30/2019 No Stop Date Active MS Contin 100 mg tablet,extended release RxNorm: 772850 1 Table t(s) Oral QD 10/30/2019 10/29/2019 Inactive MS Contin 100 mg tablet,extended release RxNorm: 790249 1 Table t(s) Oral QD 10/30/2019 11/02/2019 Inactive Relistor 150 mg tablet RxNorm: 0629106 TAKE THREE TABLETS BY BENOIT TH DAILY 10/25/2019 No Stop Date Active pantoprazole 40 mg tablet,delayed release RxNorm: 745659 1 Tabl et(s) Oral QD 10/25/2019 No Stop Date Active Minipress 2 mg capsule RxNorm: 482638 1 Capsule(s) Oral QAM and 3 at bedtime 10/25/2019 No Stop Date Active Lancets, Super Thin RxNorm: 1 Unit Dose Miscellaneous QD 9 11/27/2020 Active Cymbalta 60 mg capsule,delayed release RxNorm: 724762 1 Capsule (s) Oral QAM 10/25/2019 No Stop Date Active Cymbalta 30 mg capsule,delayed release RxNorm: 707338 1 Capsule (s) Oral QAM 10/25/2019 No Stop Date Active oxycodone 15 mg tablet RxNorm: 2606582 1 Tablet(s) Oral four times a day as needed for pain 10/25/2019 11/28/2019 Inactive metformin 500 mg tablet RxNorm: 489248 1 Tablet(s) Oral QD 10/25/20 19 01/03/2020 Inactive levothyroxine 25 mcg tablet RxNorm: 924579 1 Tablet(s) Oral QAM 02/201912/19/2019 Inactive levothyroxine 25 mcg tablet RxNorm: 029939 1 Tablet(s) Oral QAM 02/201910/24/2019 Inactive MS Contin 100 mg tablet,extended release RxNorm: 522508 1 Tablet(s) Oral two times a day replaces fentanyl 10/25/2019 10/25/2019 Inactive Premarin 0.45 mg tablet RxNorm: 242101 TAKE ONE TABLET BY MOUTH DAILY 10/24/2019 01/30/2020 Inactive Duragesic 100 mcg/hr transdermal patch RxNorm: 395176 2 Application TD Q48H for pain 10/18/2019 10/24/2019 Inactive gabapentin 300 mg capsule RxNorm: 433373 TAKE ONE CAPSULE BY MO UTH TWICE A DAY 10/16/2019 01/15/2020 Inactive cyclobenzaprine 10 mg tablet RxNorm: 581531 TAKE ONE TA BLET BY MOUTH THREE TIMES A DAY NEEDED 09/27/2019 11/20/2019 Inactive Relistor 150 mg tablet RxNorm: 9324947 TAKE THREE TABLETS BY BENOIT TH DAILY 09/25/2019 10/24/2019 Inactive ProAir HFA 90 mcg/actuation aerosol inhaler RxNorm: 707190 INHALE ONE PUFF BY MOUTH EVERY 4 HOURS FOR WHEEZING OR FOR SHORTNESS OF BREATH 09/25/2019 01/03/2020 Inactive furosemide 40 mg tablet RxNorm: 224335 1 Tablet(s) Oral QAM as needed 09/25/2019 09/25/2019 Inactive oxycodone 15 mg tablet RxNorm: 4786971 1 Tablet(s) PO QID as nee ded for pain 09/21/2019 10/24/2019 Inactive Duragesic 100 mcg/hr transdermal patch RxNorm: 536847 2 Application TD Q48H for pain 09/19/2019 10/17/2019 Inactive Daliresp 500 mcg tablet RxNorm: 5169494 1 Tablet(s) Oral QD 019 02/18/2020 Inactive Relistor 150 mg tablet RxNorm: 8051884 TAKE THREE TABLETS BY BENOIT TH DAILY 07/25/2019 07/30/2019 Inactive cyclobenzaprine 10 mg tablet RxNorm: 865773 TAKE ONE TA BLET BY MOUTH THREE TIMES A DAY NEEDED 07/25/2019 09/22/2019 Inactive potassium chloride ER 20 mEq tablet,extended release RxNorm: 595630 TAKE ONE TABLET BY MOUTH DAILY 07/25/2019 01/07/2020 Inactive fluoxetine 40 mg capsule RxNorm: 183260 TAKE ONE CAPSULE BY BENOIT TH EVERY MORNING 07/11/2019 10/24/2019 Inactive Medrol (Aníbal) 4 mg tablets in a dose pack RxNorm: 365642 6 Tablet(s) PO QD --then as directed 07/10/2019 07/15/2019 Inactive omeprazole 40 mg capsule,delayed release RxNorm: 477113 1 Capsule(s) PO QD for stomach TAKE ONE CAPSULE BY MOUTH DAILY 07/10/2019 10/24/2019 Inactive Augmentin 875 mg-125 mg tablet RxNorm: 023063 1 Tablet(s) PO BID 07/16/2019 Inactive Trulicity 0.75 mg/0.5 mL subcutaneous pen injector RxNorm: 1 174232 0.75 Milliliter(s) SQ weekly 07/05/2019 10/24/2019 Inactive Compazine 10 mg tablet RxNorm: 380600 TAKE ONE TABLET B Y MOUTH FOUR TIMES A DAY NEEDED FOR NAUSEA 06/20/2019 07/19/2019 Inactive ProAir HFA 90 mcg/actuation aerosol inhaler RxNorm: 115069 INHALE ONE PUFF BY MOUTH EVERY 4 HOURS FOR WHEEZING OR FOR SHORTNESS OF BREATH 06/20/2019 06/23/2019 Inactive Daliresp 500 mcg tablet RxNorm: 8898027 TAKE ONE TABLET BY MOUTH DAILY 06/12/2019 09/10/2019 Inactive dkwqdpjr-tkqonbcdd-ufwuispso 3.5 mg/mL-10,000 unit/mL- 1 % ear solution RxNorm: 658722 4 Drop(s) otic (ear) TID to left ear 06/05/2019 10/24/2019 Inac tive furosemide 40 mg tablet RxNorm: 321929 TAKE ONE TABLET BY MOUTH EVERY MORNING 05/26/2019 07/09/2019 Inactive Duragesic 100 mcg/hr transdermal patch RxNorm: 136057 2 Application TD Q48H for pain 05/16/2019 06/14/2019 Inactive oxycodone 15 mg tablet RxNorm: 7537990 1 Tablet(s) PO QID as nee ded for pain 05/10/2019 09/20/2019 Inactive doxycycline hyclate 100 mg capsule RxNorm: 0946707 1 Capsule(s) PO BID 05/03/2019 05/12/2019 Inactive prednisone 20 mg tablet RxNorm: 846832 1 Tablet(s) PO T ID for 3 days then 1 po BID for 3 days then one daily for 3 days 05/03/2019 07/11/2019 Inactiv e Ozempic 0.25 mg or 0.5 mg (2 mg/1.5 mL) subcutaneous p en injector RxNorm: 9659132 0.5 Milligram(s) SQ QW 05/03/2019 07/09/2019 Inactive fluconazole 100 mg tablet RxNorm: 540992 1 Tablet(s) PO QD 05/03/20 19 05/07/2019 Inactive Premarin 0.45 mg tablet RxNorm: 064603 TAKE ONE TABLET BY MOUTH DAILY 05/03/2019 10/23/2019 Inactive potassium chloride ER 20 mEq tablet,extended release RxNorm: 539692 1 Tablet(s) PO QD 04/27/2019 07/25/2019 Inactive potassium chloride ER 20 mEq tablet,extended release RxNorm: 635979 1 Tablet(s) PO QD 04/25/2019 04/26/2019 Inactive Compazine 10 mg tablet RxNorm: 543687 1 Tablet(s) PO QID as nee ded for nausea 04/25/2019 05/04/2019 Inactive ProAir HFA 90 mcg/actuation aerosol inhaler RxNorm: 145632 INHALE ONE PUFF BY MOUTH EVERY 4 HOURS FOR WHEEZING OR FOR SHORTNESS OF BREATH 04/12/2019 06/10/2019 Inactive Medrol (Aníbal) 4 mg tablets in a dose pack RxNorm: 261624 6 Tablet(s) PO QD --then as directed 04/11/2019 04/16/2019 Inactive Symbicort 160 mcg-4.5 mcg/actuation HFA aerosol inhaler RxNo rm: 0520210 2 Puff(s) INH BID 04/10/2019 10/06/2019 Inactive levothyroxine 50 mcg tablet RxNorm: 970372 1 Tablet(s) PO QD 201810/24/2019 Inactive gabapentin 300 mg capsule RxNorm: 430648 1 Capsule(s) PO BID 201810/02/2019 Inactive Symbicort 160 mcg-4.5 mcg/actuation HFA aerosol inhaler RxNo rm: 1836929 2 Puff(s) INH BID 04/06/2019 04/09/2019 Inactive oxycodone 15 mg tablet RxNorm: 4555322 1 Tablet(s) PO QID as nee ded for pain 04/05/2019 05/09/2019 Inactive levothyroxine 50 mcg tablet RxNorm: 334719 1 Tablet(s) PO QD 201804/09/2019 Inactive furosemide 40 mg tablet RxNorm: 183634 TAKE ONE TABLET BY MOUTH EVERY MORNING 03/21/2019 04/19/2019 Inactive levothyroxine 50 mcg tablet RxNorm: 451134 TAKE ONE TABLET BY M OUTH DAILY 03/21/2019 03/27/2019 Inactive Duragesic 100 mcg/hr transdermal patch RxNorm: 021964 2 Application TD Q48H for pain 03/13/2019 04/11/2019 Inactive oxycodone 15 mg tablet RxNorm: 3138236 1 Tablet(s) PO QID as nee ded for pain 03/06/2019 04/04/2019 Inactive Relistor 150 mg tablet RxNorm: 4312685 3 Tablet(s) PO QD 02/28/2019 0 05/28/2019 Inactive cyclobenzaprine 10 mg tablet RxNorm: 135549 1 Tablet(s) PO TID as needed 02/28/2019 05/28/2019 Inactive phentermine 37.5 mg tablet RxNorm: 069385 1 Tablet(s) PO QAM 201803/15/2019 Inactive Duragesic 100 mcg/hr transdermal patch RxNorm: 723448 2 Application TD Q48H for pain 02/09/2019 03/10/2019 Inactive Daliresp 500 mcg tablet RxNorm: 8756839 TAKE ONE TABLET BY MOUTH DAILY 01/31/2019 05/30/2019 Inactive Premarin 0.45 mg tablet RxNorm: 151582 1 Tablet(s) PO QD 01/31/2019 0 04/30/2019 Inactive fluoxetine 40 mg capsule RxNorm: 519077 Capsule(s) TAKE ONE CAPSULE BY MOUTH EVERY MORNING 01/31/2019 04/30/2019 Inactive levothyroxine 50 mcg tablet RxNorm: 120716 1 Tablet(s) PO QD 201804/10/2019 Inactive follow up in 3 weeks levothyroxine 50 mcg tablet RxNorm: 720243 1 Tablet(s) PO QD 201801/25/2019 Inactive follow up in 3 weeks potassium chloride ER 20 mEq tablet,extended release RxNorm: 857072 2 Tablet(s) PO BID 01/23/2019 01/08/2020 Inactive Synthroid 50 mcg tablet RxNorm: 070342 TAKE ONE TABLET BY MOUTH DAILY 01/16/2019 10/24/2019 Inactive potassium chloride ER 20 mEq tablet,extended release RxNorm: 942810 2 Tablet(s) PO BID 01/04/2019 01/22/2019 Inactive ProAir HFA 90 mcg/actuation aerosol inhaler RxNorm: 672986 INHALE ONE PUFF BY MOUTH EVERY 4 HOURS FOR WHEEZING OR SHORTNESS OF BREATH 01/04/201902/20 Inactive Request already responded to by other me ans (e.g. phone or fax) ProAir HFA 90 mcg/actuation aerosol inhaler RxNorm: 2711090 INHALE ONE PUFF BY MOUTH EVERY 4 HOURS FOR WHEEZING OR SHORTNESS OF BREATH 01/02/201912/23 Inactive gabapentin 300 mg capsule RxNorm: 606468 TAKE ONE CAPSULE BY MO UTH TWICE A DAY 12/30/2018 04/06/2019 Inactive furosemide 40 mg tablet RxNorm: 314586 1 Tablet(s) PO QAM 12/26/2018 02/23/2019 Inactive Compazine 10 mg tablet RxNorm: 559932 1 Tablet(s) PO QID as nee ded for nausea 12/07/2018 12/16/2018 Inactive metolazone 2.5 mg tablet RxNorm: 432743 TAKE ONE TABLET BY MOUT H EVERY MORNING 12/05/2018 01/03/2019 Inactive metformin ER 500 mg tablet,extended release 24 hr RxNorm: 86 0975 TAKE ONE TABLET BY MOUTH DAILY 12/05/2018 01/31/2020 Inactive Synthroid 50 mcg tablet RxNorm: 472821 1 Tablet(s) PO QD 11/25/2018 0 01/03/2019 Inactive DC any other synthroid strengths. Should be 50mcg only cyclobenzaprine 10 mg tablet RxNorm: 730505 TAKE ONE TA BLET BY MOUTH THREE TIMES A DAY NEEDED 11/09/2018 02/06/2019 Inactive metolazone 2.5 mg tablet RxNorm: 656062 1 Tablet(s) PO QAM repl aces 5mg dose 11/02/2018 12/01/2018 Inactive potassium chloride ER 20 mEq tablet,extended release RxNorm: 034102 2 Tablet(s) PO QD 2018 01/02/2019 Inactive Compazine 10 mg tablet RxNorm: 601752 1 Tablet(s) PO QID as nee ded for nausea 10/18/2018 12/07/2018 Inactive furosemide 40 mg tablet RxNorm: 867936 1 Tablet(s) PO QAM 10/12/2018 12/10/2018 Inactive ondansetron 8 mg disintegrating tablet RxNorm: 007095 1 Tablet(s) PO Q6H as needed 10/11/2018 10/17/2018 Inactive scopolamine 1 mg over 3 days transdermal patch RxNorm: 33420 2 1 Application TD behind ear. Take off after three days 10/11/2018 01/02/2019 Inactive furosemide 40 mg tablet RxNorm: 101842 1 Tablet(s) PO QAM 10/10/2018 12/26/2018 Inactive metolazone 5 mg tablet RxNorm: 746740 1 Tablet(s) PO QAM 10/06/2018 1 01/03/2018 Inactive metolazone 5 mg tablet RxNorm: 817096 1 Tablet(s) PO QAM 10/06/2018 1 12/05/2017 Inactive Xtampza ER 36 mg capsule sprinkle RxNorm: 4729488 1 Capsule(s) P O BID 10/05/2018 01/02/2019 Inactive Xtampza ER 36 mg capsule sprinkle RxNorm: 8624267 1 Capsule(s) P O BID 10/05/2018 02/12/2019 Inactive omeprazole 40 mg capsule,delayed release RxNorm: 434224 TAKE ONE CAPSULE BY MOUTH DAILY 10/03/2018 12/31/2018 Inactive Duragesic 100 mcg/hr transdermal patch RxNorm: 072268 2 Application TD Q48H for pain 09/30/2018 10/29/2018 Inactive Synthroid 50 mcg tablet RxNorm: 734995 1 Tablet(s) PO QD 09/29/2018 0 11/25/2018 Inactive DC any other synthroid strengths. Should be 50mcg only Synthroid 50 mcg tablet RxNorm: 126132 1 Tablet(s) PO QD 09/29/2018 1 11/28/2017 Inactive furosemide 40 mg tablet RxNorm: 335630 2 Tablet(s) PO Q AM for 1 week then every other day for 2 weeks 09/27/2018 10/12/2018 Inactive fluoxetine 40 mg capsule RxNorm: 104294 2 Capsule(s) PO QD 09/27/20 18 10/17/2018 Inactive potassium chloride ER 20 mEq tablet,extended release RxNorm: 981453 2 Tablet(s) PO QD for 1 week then every other day for 2 weeks 09/27/2018 2018 Inactive ProAir HFA 90 mcg/actuation aerosol inhaler RxNorm: 1581233 INHALE ONE PUFF BY MOUTH EVERY 4 HOURS FOR WHEEZING OR SHORTNESS OF BREATH 09/26/201811/23 Inactive Synthroid 75 mcg tablet RxNorm: 594648 1 Tablet(s) PO QD 09/09/2018 1 Inactive Synthroid 75 mcg tablet RxNorm: 309321 1 Tablet(s) PO QD 09/09/2018 1 11/28/2017 Inactive furosemide 40 mg tablet RxNorm: 307119 1 Tablet(s) PO QD 09/06/2018 1 Inactive potassium chloride ER 20 mEq tablet,extended release RxNorm: 388433 1 Tablet(s) PO QD 09/06/2018 09/19/2018 Inactive Duragesic 100 mcg/hr transdermal patch RxNorm: 721255 2 Application TD Q48H for pain 08/30/2018 09/28/2018 Inactive gabapentin 300 mg capsule RxNorm: 693586 TAKE ONE CAPSULE BY MO [facility] TWICE A DAY 08/23/2018 12/20/2018 Inactive Daliresp 500 mcg tablet RxNorm: 2747444 TAKE ONE TABLET BY MOUTH DAILY 08/23/2018 01/19/2019 Inactive Pulmicort 1 mg/2 mL suspension for nebulization RxNorm: 6168 19 USE ONE VIAL VIA NEBULIZER BY MOUTH TWICE A DAY 08/23/2018 07/11/2019 Inactive Synthroid 88 mcg tablet RxNorm: 397756 1 Tablet(s) PO QD 08/19/2018 Inactive Medrol (Aníbal) 4 mg tablets in a dose pack RxNorm: 522921 Tablet(s) PO take as directed 08/16/2018 09/05/2018 Inactive Relistor 150 mg tablet RxNorm: 0580589 3 Tablet(s) PO QD 08/16/2018 1 Inactive Zithromax Z-Aníbal 250 mg tablet RxNorm: 398753 Tablet(s) PO take as directed 08/16/2018 09/05/2018 Inactive cyclobenzaprine 10 mg tablet RxNorm: 192755 1 Tablet(s) PO TID as needed 08/16/2018 11/08/2018 Inactive Synthroid 88 mcg tablet RxNorm: 284789 1 Tablet(s) PO Q D NEEDS UPDATED LABS BEFORE FURTHER REFILLS 08/08/2018 08/19/2018 Inactive Premarin 0.45 mg tablet RxNorm: 387017 1 Tablet(s) PO QD 08/03/2018 0 01/31/2019 Inactive fluoxetine 20 mg capsule RxNorm: 510029 TAKE ONE CAPSULE BY BENOIT TH DAILY 08/03/2018 09/26/2018 Inactive Xtampza ER 36 mg capsule sprinkle RxNorm: 3973882 1 Capsule(s) P O BID 08/03/2018 09/01/2018 Inactive metformin ER 500 mg tablet,extended release 24 hr RxNorm: 86 0975 1 Tablet(s) PO QD 08/03/2018 10/31/2018 Inactive Symbicort 160 mcg-4.5 mcg/actuation HFA aerosol inhaler RxNo rm: 7664038 2 Puff(s) INH BID 08/03/2018 01/29/2019 Inactive Duragesic 100 mcg/hr transdermal patch RxNorm: 722091 2 Application TD Q48H for pain 07/29/2018 08/27/2018 Inactive ProAir HFA 90 mcg/actuation aerosol inhaler RxNorm: 829765 INHALE TWO PUFFS BY MOUTH EVERY 4 HOURS FOR WHEEZING OR SHORTNESS OF BREATH 07/27/201802/2018 Inactive Relistor 150 mg tablet RxNorm: 3837453 3 Tablet(s) PO QD 07/20/2018 0 08/15/2018 Inactive metformin ER 500 mg tablet,extended release 24 hr RxNorm: 86 0975 TAKE ONE TABLET BY MOUTH DAILY 07/08/2018 08/02/2018 Inactive fluoxetine 40 mg capsule RxNorm: 253175 TAKE ONE CAPSULE BY BENOIT TH EVERY MORNING 07/08/2018 10/05/2018 Inactive Xtampza ER 18 mg capsule sprinkle RxNorm: 0623631 1 Capsule(s) P O BID 07/08/2018 08/02/2018 Inactive Relistor 150 mg tablet RxNorm: 1718040 3 Tablet(s) PO QD 07/08/2018 0 07/12/2018 Inactive Synthroid 88 mcg tablet RxNorm: 104553 1 Tablet(s) PO Q D NEEDS UPDATED LABS BEFORE FURTHER REFILLS 06/23/2018 07/07/2018 Inactive fluoxetine 40 mg capsule RxNorm: 972517 TAKE ONE CAPSULE BY BENOIT TH EVERY MORNING 06/15/2018 09/26/2018 Inactive orphenadrine citrate ER 100 mg tablet,extended release RxNor m: 486503 TAKE ONE TABLET BY MOUTH TWICE A DAY FOR MUSCLE SPASM 06/15/2018 08/15/2018 [place] [facility] Duragesic 100 mcg/hr transdermal patch RxNorm: 196653 2 Application TD Q48H for pain 05/30/2018 06/28/2018 Inactive ProAir HFA 90 mcg/actuation aerosol inhaler RxNorm: 624641 INHALE TWO PUFFS BY MOUTH EVERY 4 HOURS FOR WHEEZING OR SHORTNESS OF BREATH 05/19/201803/2018 Inactive Chantix Continuing Month Box 1 mg tablet RxNorm: 264019 TAKE ONE TABLET BY MOUTH TWICE A DAY 05/19/2018 08/15/2018 Inactive oxycodone 10 mg tablet RxNorm: 0587676 1-2 Tablet(s) PO QID as n eeded for pain 05/19/2018 07/07/2018 Inactive gabapentin 300 mg capsule RxNorm: 236249 TAKE ONE CAPSULE BY MO UTH TWICE A DAY 05/18/2018 07/16/2018 Inactive ProAir HFA 90 mcg/actuation aerosol inhaler RxNorm: 230429 INHALE TWO PUFFS BY MOUTH EVERY 4 HOURS FOR WHEEZING OR SHORTNESS OF BREATH 05/04/201804/23 Inactive Augmentin 500 mg-125 mg tablet RxNorm: 595852 1 Tablet(s) PO BID 05/03/2018 Inactive oxycodone 10 mg tablet RxNorm: 7704662 1-2 Tablet(s) PO QID as n eeded for pain 04/21/2018 05/18/2018 Inactive Synthroid 88 mcg tablet RxNorm: 367979 1 Tablet(s) PO QD 04/15/2018 0 08/08/2018 Inactive Symbicort 160 mcg-4.5 mcg/actuation HFA aerosol inhaler RxNo rm: 1790959 2 Puff(s) INH BID 04/15/2018 04/10/2019 Inactive Premarin 0.45 mg tablet RxNorm: 240559 1 Tablet(s) PO QD 04/15/2018 0 08/03/2018 Inactive ProAir HFA 90 mcg/actuation aerosol inhaler RxNorm: 861872 2 Puff(s) INH Q4H prn for wheezing or shortness of breath 04/15/2018 05/03/2018 Inactive metformin ER 500 mg tablet,extended release 24 hr RxNorm: 86 0975 1 Tablet(s) PO QD 04/11/2018 07/07/2018 Inactive omeprazole 40 mg capsule,delayed release RxNorm: 202157 TAKE ONE CAPSULE BY MOUTH DAILY 04/10/2018 06/08/2018 Inactive Synthroid 88 mcg tablet RxNorm: 096334 1 Tablet(s) PO QD 04/04/2018 0 04/14/2018 Inactive Synthroid 88 mcg tablet RxNorm: 336867 1 Tablet(s) PO QD 04/04/2018 0 04/03/2018 Inactive orphenadrine citrate ER 100 mg tablet,extended release RxNor m: 676104 1 Tablet(s) PO BID for muscle spasm 04/04/2018 05/03/2018 Inactive metformin ER 500 mg tablet,extended release 24 hr RxNorm: 86 0975 1 Tablet(s) PO QD NEEDS UPDATED LABS 03/31/2018 04/11/2018 Inactive doxycycline hyclate 100 mg capsule RxNorm: 0646537 1 Capsule(s) PO BID 03/31/2018 04/09/2018 Inactive prednisone 20 mg tablet RxNorm: 072254 3 Tablet(s) PO T ID for 3 days then 1 po BID for 3 days then one daily for 3 days 03/31/2018 07/06/2018 Inactiv e Chantix Continuing Month Box 1 mg tablet RxNorm: 401170 TAKE ONE TABLET BY MOUTH TWICE A DAY 03/25/2018 03/30/2018 Inactive oxycodone 10 mg tablet RxNorm: 6507706 1-2 Tablet(s) PO QID as n eeded for pain 03/21/2018 04/20/2018 Inactive Daliresp 500 mcg tablet RxNorm: 8483823 1 Tablet(s) PO QD 03/15/2018 08/22/2018 Inactive metformin ER 500 mg tablet,extended release 24 hr RxNorm: 86 0975 1 Tablet(s) PO QD NEEDS UPDATED LABS 03/14/2018 03/31/2018 Inactive nystatin 100,000 unit/mL oral suspension RxNorm: 908105 5 [place] liter(s) PO QID 03/02/2018 03/15/2018 Inactive nystatin 100,000 unit/mL oral suspension RxNorm: 911707 5 Chio liter(s) PO QID 03/02/2018 03/01/2018 Inactive oxycodone 10 mg tablet RxNorm: 2308752 1-2 Tablet(s) PO QID as n eeded for pain 02/16/2018 03/20/2018 Inactive fluoxetine 20 mg capsule RxNorm: 355689 1 Capsule(s) PO QD 02/15/20 18 08/02/2018 Inactive metformin ER 500 mg tablet,extended release 24 hr RxNorm: 86 0975 1 Tablet(s) PO QD Needs updated labs 02/14/2018 03/14/2018 Inactive cefdinir 300 mg capsule RxNorm: 792957 1 Capsule(s) PO BID 01/27/20 18 02/04/2018 Inactive orphenadrine citrate ER 100 mg tablet,extended release RxNor m: 541093 1 Tablet(s) PO BID for muscle spasm 01/26/2018 04/04/2018 Inactive gabapentin 300 mg capsule RxNorm: 087764 1 Capsule(s) PO BID 201704/17/2018 Inactive oxycodone 10 mg tablet RxNorm: 8371878 1-2 Tablet(s) PO QID as n eeded for pain 01/17/2018 02/15/2018 Inactive Duragesic 100 mcg/hr transdermal patch RxNorm: 969891 2 Application TD Q48H for pain 01/17/2018 02/15/2018 Inactive gabapentin 300 mg capsule RxNorm: 225536 TAKE ONE CAPSULE BY MO UTH TWICE A DAY 12/20/2017 01/18/2018 Inactive fluoxetine 40 mg capsule RxNorm: 102191 TAKE ONE CAPSULE BY BENOIT TH EVERY MORNING 12/15/2017 03/14/2018 Inactive OneTouch Ultra Test strips RxNorm: TEST DAILY 11/04/2017 02/01/2018 Inactive gabapentin 300 mg capsule RxNorm: 852443 1 Capsule(s) P O TID replaces BID dosing 10/26/2017 02/22/2018 Inactive oxycodone 10 mg tablet RxNorm: 5915234 1-2 Tablet(s) PO QID as n eeded for pain 10/18/2017 01/16/2018 Inactive Duragesic 100 mcg/hr transdermal patch RxNorm: 023161 2 Application TD Q48H for pain 10/18/2017 11/16/2017 Inactive gabapentin 300 mg capsule RxNorm: 726665 1 Capsule(s) PO BID 201610/25/2017 Inactive Abilify 5 mg tablet RxNorm: 037058 1 Tablet(s) PO QAM 09/23/201702/2017 Inactive gabapentin 300 mg capsule RxNorm: 522477 1 Capsule(s) PO BID 201610/17/2017 Inactive oxycodone 10 mg tablet RxNorm: 7113398 1-2 Tablet(s) PO QID as n eeded for pain 09/15/2017 10/17/2017 Inactive Duragesic 100 mcg/hr transdermal patch RxNorm: 517202 2 Application TD Q48H for pain 09/15/2017 10/14/2017 Inactive Duragesic 100 mcg/hr transdermal patch RxNorm: 211611 2 Application TD Q48H for pain 09/15/2017 10/24/2019 Inactive oxycodone 10 mg tablet RxNorm: 0802632 1-2 Tablet(s) PO QID as n eeded for pain 09/15/2017 08/15/2018 Inactive Daliresp 500 mcg tablet RxNorm: 7290912 1 Tablet(s) PO QD 09/06/2017 03/15/2018 Inactive Ventolin HFA 90 mcg/actuation aerosol inhaler RxNorm: 139539 2 Puff(s) INH Q4H as needed 09/02/2017 05/19/2018 Inactive oxycodone 10 mg tablet RxNorm: 0232301 1-2 Tablet(s) PO QID as n eeded for pain 08/17/2017 09/14/2017 Inactive Duragesic 100 mcg/hr transdermal patch RxNorm: 165244 2 Application TD Q48H for pain 08/17/2017 09/14/2017 Inactive fluoxetine 40 mg capsule RxNorm: 525516 Capsule(s) TAKE ONE CAPSULE BY MOUTH EVERY MORNING 08/17/2017 12/14/2017 Inactive Pulmicort 1 mg/2 mL suspension for nebulization RxNorm: 6168 19 1 Unit Dose INH BID Dx: COPD (J44.9) 08/16/2017 08/22/2018 Inactive gabapentin 300 mg capsule RxNorm: 692752 1 Capsule(s) PO QHS 201610/18/2017 Inactive fluoxetine 20 mg capsule RxNorm: 831906 1 Capsule(s) PO QD 08/12/20 17 02/14/2018 Inactive Abilify 2 mg tablet RxNorm: 711382 1 Tablet(s) PO QD TA KE ONE TABLET BY MOUTH DAILY 08/12/2017 10/25/2017 Inactive metformin ER 500 mg tablet,extended release 24 hr RxNorm: 86 0975 1 Tablet(s) PO QD 08/10/2017 02/14/2018 Inactive Synthroid 112 mcg tablet RxNorm: 368060 1 Tablet(s) PO QD 08/10/2017 04/15/2018 Inactive oxycodone 10 mg tablet RxNorm: 1781693 1-2 Tablet(s) PO QID as n eeded for pain 07/19/2017 08/16/2017 Inactive Duragesic 100 mcg/hr transdermal patch RxNorm: 120975 2 Application TD Q48H for pain 07/19/2017 08/16/2017 Inactive Ventolin HFA 90 mcg/actuation aerosol inhaler RxNorm: 016019 2 Puff(s) INH Q4H as needed 07/12/2017 09/02/2017 Inactive Abilify 2 mg tablet RxNorm: 131527 1 Tablet(s) PO QD TA KE ONE TABLET BY MOUTH DAILY 07/06/2017 08/11/2017 Inactive gabapentin 800 mg tablet RxNorm: 413456 1 Tablet(s) PO TID 06/22/20 17 07/05/2017 Inactive Chantix Starting Month Box 0.5 mg (11)-1 mg (42) table ts in dose pack RxNorm: 326140 TAKE BY MOUTH INSTRUCTED - PER PACKAGE INSTRUCTIONS 06/0707/04/2017 Inactive Ventolin HFA 90 mcg/actuation aerosol inhaler RxNorm: 526861 2 Puff(s) INH Q4H as needed 05/26/2017 07/12/2017 Inactive Duragesic 100 mcg/hr transdermal patch RxNorm: 743266 2 Application TD Q48H for pain 05/19/2017 06/17/2017 Inactive oxycodone 10 mg tablet RxNorm: 6043033 1-2 Tablet(s) PO QID as n eeded for pain 05/19/2017 07/18/2017 Inactive Abilify 2 mg tablet RxNorm: 208403 TAKE ONE TABLET BY MOUTH DAILY 0 05/10/2017 07/05/2017 Inactive Synthroid 112 mcg tablet RxNorm: 598328 1 Tablet(s) PO QD 05/06/2017 08/10/2017 Inactive metformin ER 500 mg tablet,extended release 24 hr RxNorm: 86 0975 1 Tablet(s) PO QD 05/06/2017 08/10/2017 Inactive Topamax 100 mg tablet RxNorm: 254853 1 Tablet(s) PO QHS 05/06/2017 Inactive Premarin 0.45 mg tablet RxNorm: 278309 1 Tablet(s) PO QD 05/06/2017 0 04/15/2018 Inactive orphenadrine citrate ER 100 mg tablet,extended release RxNor m: 401346 1 Tablet(s) PO TID for muscle spasm--replaces methocarbamol 04/29/2017 Inactive oxycodone 10 mg tablet RxNorm: 3563930 1-2 Tablet(s) PO QID as n eeded for pain 04/21/2017 05/18/2017 Inactive Duragesic 100 mcg/hr transdermal patch RxNorm: 931918 2 Application TD Q48H for pain 04/21/2017 05/18/2017 Inactive fluoxetine 40 mg capsule RxNorm: 222621 Capsule(s) TAKE ONE CAPSULE BY MOUTH EVERY MORNING 04/20/2017 08/17/2017 Inactive Ventolin HFA 90 mcg/actuation aerosol inhaler RxNorm: 839586 2 Puff(s) INH Q4H as needed 04/05/2017 05/26/2017 Inactive Symbicort 160 mcg-4.5 mcg/actuation HFA aerosol inhaler RxNo rm: 0476152 2 Puff(s) INH BID 03/30/2017 04/15/2018 Inactive Spiriva with HandiHaler 18 mcg and inhalation capsules RxNor m: 804725 1 Capsule(s) INH QD USING HANDIHALER 03/30/2017 02/12/2019 Inactive Duragesic 100 mcg/hr transdermal patch RxNorm: 536641 2 Application TD Q48H for pain 03/18/2017 04/16/2017 Inactive oxycodone 10 mg tablet RxNorm: 2108038 1-2 Tablet(s) PO QID as n eeded for pain 03/18/2017 04/20/2017 Inactive metformin ER 500 mg tablet,extended release 24 hr RxNorm: 86 0975 Tablet(s) TAKE ONE TABLET BY MOUTH DAILY 03/01/2017 05/06/2017 Inactive Premarin 0.45 mg tablet RxNorm: 467377 Tablet(s) TAKE ONE TABLE T BY MOUTH DAILY 03/01/2017 05/06/2017 Inactive Synthroid 112 mcg tablet RxNorm: 625080 Tablet(s) TAKE ONE TABLET BY MOUTH DAILY 03/01/2017 05/06/2017 Inactive Daliresp 500 mcg tablet RxNorm: 8772099 1 Tablet(s) PO QD 03/01/2017 09/06/2017 Inactive 16.2 mg-0.1037 mg-0.0194 mg tablet RxNorm: 4960687 Tablet(s) PO PRN for gas and cramping 02/23/2017 04/28/2017 Inactive TAKE TWO TABLET S BY MOUTH THREE TIMES A DAY NEEDED FOR GAS AND CRAMPING gabapentin 800 mg tablet RxNorm: 169029 1 Tablet(s) PO TID repl aces 600mg 02/23/2017 04/28/2017 Inactive Duragesic 100 mcg/hr transdermal patch RxNorm: 699091 2 Application TD Q48H for pain 02/17/2017 03/17/2017 Inactive fluoxetine 20 mg capsule RxNorm: 659654 1 Capsule(s) PO QD 02/18/20 17 08/12/2017 Inactive oxycodone 20 mg tablet RxNorm: 2631490 1 Tablet(s) PO QID as nee ded for pain 02/17/2017 03/17/2017 Inactive Ventolin HFA 90 mcg/actuation aerosol inhaler RxNorm: 309520 INHALE TWO PUFFS BY MOUTH EVERY 4 HOURS NEEDED 02/15/2017 04/05/2017 Inactive Silvadene 1 % topical cream RxNorm: 731215 1 Application TOP BI D to burn area 02/01/2017 09/22/2017 Inactive Topamax 100 mg tablet RxNorm: 475571 TAKE ONE TABLET BY MOUTH EVERY NIGHT AT BEDTIME 01/29/2017 05/06/2017 Inactive Chantix Starting Month Box 0.5 mg (11)-1 mg (42) table ts in dose pack RxNorm: 558323 Tablet(s) PO as directed 01/29/2017 06/01/2017 Inactive Abilify 2 mg tablet RxNorm: 479185 TAKE ONE TABLET BY MOUTH DAILY 0 01/26/2017 04/25/2017 Inactive Chantix Starting Month Box 0.5 mg (11)-1 mg (42) table ts in dose pack RxNorm: 191580 Tablet(s) PO as directed 01/20/2017 01/28/2017 Inactive gabapentin 600 mg tablet RxNorm: 046330 1 Tablet(s) PO TID 01/21/20 17 02/22/2017 Inactive Chantix Continuing Month Box 1 mg tablet RxNorm: 908240 1 Table t(s) PO BID 12/31/2016 06/01/2017 Inactive Spiriva with HandiHaler 18 mcg and inhalation capsules RxNor m: 663527 INHALE THE ENTIRE CONTENTS OF 1 CAPSULE ONCE A DAY USING HANDIHALER 12/31/201607/2017 Inactive Synthroid 112 mcg tablet RxNorm: 220080 TAKE ONE TABLET BY MOUT H DAILY 12/30/2016 03/01/2017 Inactive metformin ER 500 mg tablet,extended release 24 hr RxNorm: 86 0975 TAKE ONE TABLET BY MOUTH DAILY 12/30/2016 03/01/2017 Inactive Premarin 0.45 mg tablet RxNorm: 484854 TAKE ONE TABLET BY MOUTH DAILY 12/30/2016 03/01/2017 Inactive omeprazole 40 mg capsule,delayed release RxNorm: 645533 TAKE ONE CAPSULE BY MOUTH DAILY 12/30/2016 01/25/2018 Inactive Ventolin HFA 90 mcg/actuation aerosol inhaler RxNorm: 613189 INHALE TWO PUFFS BY MOUTH EVERY 4 HOURS NEEDED 12/28/2016 02/13/2017 Inactive fluoxetine 40 mg capsule RxNorm: 101356 TAKE ONE CAPSULE BY BENOIT TH EVERY MORNING 12/15/2016 04/20/2017 Inactive Chantix Continuing Month Box 1 mg tablet RxNorm: 539702 TAKE ONE TABLET BY MOUTH TWICE A DAY 12/04/2016 12/31/2016 Inactive doxycycline hyclate 100 mg capsule RxNorm: 7326971 1 Capsule(s) PO BID 12/01/2016 12/07/2016 Inactive Levaquin 750 mg tablet RxNorm: 224035 1 Tablet(s) PO QD 12/01/2016 Inactive Abilify 2 mg tablet RxNorm: 932905 TAKE ONE TABLET BY MOUTH DAILY 0 11/25/2016 11/30/2016 Inactive Ventolin HFA 90 mcg/actuation aerosol inhaler RxNorm: 963208 INHALE TWO PUFFS BY MOUTH EVERY 4 HOURS NEEDED 11/02/2016 12/19/2016 Inactive Chantix Continuing Month Box 1 mg tablet RxNorm: 297201 Tablet(s) PO as directed 10/30/2016 12/03/2016 Inactive Symbicort 160 mcg-4.5 mcg/actuation HFA aerosol inhaler RxNo rm: 9065158 INHALE TWO PUFFS TWO TIMES A DAY 10/30/2016 03/30/2017 Inactive Abilify 2 mg tablet RxNorm: 239815 1 Tablet(s) PO QD 10/27/201611/24 Inactive amoxicillin 500 mg capsule RxNorm: 068013 1 Capsule(s) PO TID 10/1410/23/2016 Inactive amoxicillin 500 mg capsule RxNorm: 999560 1 Capsule(s) PO TID 10/1410/13/2016 Inactive Synthroid 112 mcg tablet RxNorm: 851667 TAKE ONE TABLET BY MOUT H DAILY 09/28/2016 12/29/2016 Inactive Topamax 100 mg tablet RxNorm: 744895 TAKE ONE TABLET BY MOUTH EVERY NIGHT AT BEDTIME 09/28/2016 01/28/2017 Inactive Premarin 0.45 mg tablet RxNorm: 562195 TAKE ONE TABLET BY MOUTH DAILY 09/28/2016 12/29/2016 Inactive metformin ER 500 mg tablet,extended release 24 hr RxNorm: 86 0975 TAKE ONE TABLET BY MOUTH DAILY 09/28/2016 12/29/2016 Inactive Ventolin HFA 90 mcg/actuation aerosol inhaler RxNorm: 709945 INHALE TWO PUFFS BY MOUTH EVERY 4 HOURS NEEDED 09/22/2016 10/23/2016 Inactive Pulmicort 1 mg/2 mL suspension for nebulization RxNorm: 6168 19 1 Unit Dose INH BID Dx: COPD (J44.9) 09/10/2016 08/16/2017 Inactive Pulmicort 1 mg/2 mL suspension for nebulization RxNorm: 6168 19 1 Unit Dose INH BID 09/10/2016 09/09/2016 Inactive Brovana 15 mcg/2 mL solution for nebulization RxNorm: 775013 1 Unit Dose INH BID Dx: COPD (J44.9) 09/10/2016 01/25/2018 Inactive Brovana 15 mcg/2 mL solution for nebulization RxNorm: 200577 1 Unit Dose INH BID 09/10/2016 09/09/2016 Inactive ipratropium-albuterol 0.5 mg-3 mg(2.5 mg base)/3 mL ne bulization soln RxNorm: 7254368 1 Unit Dose INH Q4H as needed Dx: COPD (J44.9) 09/10/2016 0 02/12/2019 Inactive orphenadrine citrate ER 100 mg tablet,extended release RxNor m: 084486 1 Tablet(s) PO BID for muscle spasm--replaces methocarbamol 09/09/2016 Inactive Chantix Continuing Month Box 1 mg tablet RxNorm: 435826 Tablet(s) PO as directed 09/09/2016 10/30/2016 Inactive orphenadrine citrate ER 100 mg tablet,extended release RxNor m: 815770 1 Tablet(s) PO BID for muscle spasm 09/09/2016 09/08/2016 Inactive Spiriva with HandiHaler 18 mcg and inhalation capsules RxNor m: 929997 INHALE THE ENTIRE CONTENTS OF 1 CAPSULE ONCE A DAY USING HANDIHALER 09/01/201605/2017 Inactive Daliresp 500 mcg tablet RxNorm: 9203902 1 Tablet(s) PO QD 08/27/2016 03/01/2017 Inactive prednisone 20 mg tablet RxNorm: 148824 3 Tablet(s) PO T ID for 3 days then 1 po BID for 3 days then one daily for 3 days 08/26/2016 04/28/2017 Inactiv e Wellbutrin XL 300 mg 24 hr tablet, extended release RxNorm: 509274 TAKE ONE TABLET BY MOUTH EVERY MORNING 07/29/2016 10/26/2016 Inactive gabapentin 600 mg tablet RxNorm: 209863 1 Tablet(s) PO BID 06/26/20 16 12/22/2016 Inactive fluoxetine 40 mg capsule RxNorm: 248878 TAKE ONE CAPSULE BY BENOIT TH EVERY MORNING 06/24/2016 11/20/2016 Inactive Duragesic 100 mcg/hr transdermal patch RxNorm: 574296 2 Application TD Q48H for pain 06/05/2016 07/04/2016 Inactive oxycodone 10 mg tablet RxNorm: 1015607 1-2 Tablet(s) PO QID as n eeded for pain 06/05/2016 03/17/2017 Inactive Belladonna-Phenobarbital 48 mg tablet,extended release RxNor m: 2 Tablet(s) PO TID 06/05/2016 01/19/2017 Inactive Premarin 0.45 mg tablet RxNorm: 916642 TAKE ONE TABLET BY MOUTH DAILY 05/27/2016 09/23/2016 Inactive Topamax 100 mg tablet RxNorm: 366263 TAKE ONE TABLET BY MOUTH EVERY NIGHT AT BEDTIME 05/27/2016 09/27/2016 Inactive Synthroid 112 mcg tablet RxNorm: 747697 TAKE ONE TABLET BY MOUT H DAILY 05/27/2016 09/23/2016 Inactive metformin ER 500 mg tablet,extended release 24 hr RxNorm: 86 0975 TAKE ONE TABLET BY MOUTH DAILY 05/27/2016 09/23/2016 Inactive Symbicort 160 mcg-4.5 mcg/actuation HFA aerosol inhaler RxNo rm: 6760847 INHALE TWO PUFFS TWO TIMES A DAY 05/27/2016 10/23/2016 Inactive Ventolin HFA 90 mcg/actuation aerosol inhaler RxNorm: 557668 INHALE TWO PUFFS BY MOUTH EVERY 4 HOURS NEEDED 05/21/2016 07/07/2016 Inactive omeprazole 40 mg capsule,delayed release RxNorm: 129244 1 Capsu le(s) PO QD 05/06/2016 08/03/2016 Inactive metformin ER 500 mg tablet,extended release 24 hr RxNorm: 86 0975 TAKE ONE TABLET BY MOUTH DAILY 04/23/2016 05/22/2016 Inactive methocarbamol 750 mg tablet RxNorm: 019795 2 Tablet(s) PO TID as needed for muscle spasm 04/23/2016 09/08/2016 Inactive Synthroid 112 mcg tablet RxNorm: 739456 TAKE ONE TABLET BY MOUT H DAILY 04/23/2016 05/22/2016 Inactive Spiriva with HandiHaler 18 mcg and inhalation capsules RxNor m: 262792 INHALE THE ENTIRE CONTENTS OF 1 CAPSULE ONCE A DAY USING HANDIHALER 04/09/201608/2016 Inactive Diflucan 100 mg tablet RxNorm: 947558 1 Tablet(s) PO QD 04/08/2016 Inactive doxycycline hyclate 100 mg capsule RxNorm: 7544530 1 Capsule(s) PO BID 04/08/2016 04/17/2016 Inactive doxycycline hyclate 100 mg capsule RxNorm: 0903696 1 Capsule(s) PO BID 04/08/2016 04/07/2016 Inactive Diflucan 100 mg tablet RxNorm: 522531 1 Tablet(s) PO QD 04/08/2016 Inactive ondansetron HCl 4 mg tablet RxNorm: 135571 1 Tablet(s) PO Q4H as needed for nausea and vomiting 04/08/2016 09/22/2017 Inactive gabapentin 600 mg tablet RxNorm: 217521 TAKE ONE TABLET BY MOUT H TWICE A DAY 03/24/2016 06/25/2016 Inactive Synthroid 112 mcg tablet RxNorm: 557723 TAKE ONE TABLET BY MOUT H DAILY 02/25/2016 04/22/2016 Inactive Levaquin 500 mg tablet RxNorm: 451026 1 Tablet(s) PO QD 01/23/2016 Inactive prednisone 20 mg tablet RxNorm: 000111 1 Tablet(s) PO T ID for 3 days then 1 po BID for 3 days then one daily for 3 days 01/23/2016 08/25/2016 Inactiv e [employer] Ultra Test strips RxNorm: TEST BLOOD SUGAR ONCE DAILY 250.00 01/09/2016 11/04/2017 Inactive methocarbamol 750 mg tablet RxNorm: 619867 2 Tablet(s) PO TID as needed for muscle spasm 01/09/2016 04/23/2016 Inactive lactulose 10 gram/15 mL oral solution RxNorm: 672009 [address](s) PO QD 01/09/2016 09/22/2017 Inactive TAKE 1 TABLESPOON BY MOUTH ONCE DAILY metformin ER 500 mg tablet,extended release 24 hr RxNorm: 86 0975 1 Tablet(s) PO QD 12/26/2015 04/22/2016 Inactive fluoxetine 20 mg capsule RxNorm: 999488 1 Capsule(s) PO QD 12/23/19 16 06/19/2016 Inactive Premarin 0.45 mg tablet RxNorm: 060631 TAKE ONE TABLET BY MOUTH DAILY 12/23/2015 05/20/2016 Inactive fluoxetine 40 mg capsule RxNorm: 476894 1 Capsule(s) PO QD 12/23/19 16 06/19/2016 Inactive TAKE ONE CAPSULE BY MOUTH EV JANKI MORNING azithromycin 500 mg tablet RxNorm: 607768 1 Tablet(s) PO QD 016 12/19/2015 Inactive Zofran 4 mg tablet RxNorm: 073287 1 Tablet(s) PO Q4H prn nausea /vomiting 12/13/2015 03/30/2018 Inactive azithromycin 500 mg tablet RxNorm: 994478 1 Tablet(s) PO QD 016 12/12/2015 Inactive Duragesic 100 mcg/hr transdermal patch RxNorm: 266590 2 Application TD Q48H for pain 12/09/2015 01/07/2016 Inactive oxycodone 10 mg tablet RxNorm: 1014597 1-2 Tablet(s) PO QID as n eeded for pain 12/09/2015 06/04/2016 Inactive Bactroban 2 % topical cream RxNorm: 341548 Application TOP BID 11/2208/25/2016 Inactive doxycycline hyclate 100 mg capsule RxNorm: 8291335 1 Capsule(s) PO BID 12/03/2015 12/12/2015 Inactive Topamax 100 mg tablet RxNorm: 007784 TAKE ONE TABLET BY MOUTH EVERY NIGHT AT BEDTIME 11/25/2015 05/22/2016 Inactive Symbicort 160 mcg-4.5 mcg/actuation HFA aerosol inhaler RxNo rm: 5683088 INHALE TWO PUFFS TWO TIMES A DAY 11/25/2015 05/22/2016 Inactive Synthroid 112 mcg tablet RxNorm: 762880 Tablet(s) TAKE ONE TABLET BY MOUTH DAILY 11/25/2015 02/22/2016 Inactive omeprazole 40 mg capsule,delayed release RxNorm: 918847 1 Capsu le(s) PO QD 11/12/2015 05/05/2016 Inactive oxycodone 10 mg tablet RxNorm: 6266400 1-2 Tablet(s) PO QID as n eeded for pain 11/05/2015 12/08/2015 Inactive Duragesic 100 mcg/hr transdermal patch RxNorm: 262922 2 Application TD Q48H for pain 11/05/2015 12/04/2015 Inactive omeprazole 40 mg capsule,delayed release RxNorm: 184776 1 Capsu le(s) PO QD 10/07/2015 11/11/2015 Inactive Januvia 100 mg tablet RxNorm: 573167 TAKE ONE TABLET BY MOUTH DAILY 09/11/2015 12/25/2015 Inactive Zithromax 500 mg tablet RxNorm: 156732 1 Tablet(s) PO QD 09/10/2015 1 Inactive prednisone 20 mg tablet RxNorm: 707275 1 Tablet(s) PO T ID for 3 days then 1 po BID for 3 days then one daily for 3 days 09/10/2015 08/25/2016 Inactiv e Wellbutrin XL 300 mg 24 hr tablet, extended release RxNorm: 518056 1 Tablet(s) PO QAM 09/10/2015 12/02/2015 Inactive Topamax 100 mg tablet RxNorm: 954493 TAKE ONE TABLET BY MOUTH EVERY NIGHT AT BEDTIME 09/02/2015 11/24/2015 Inactive Synthroid 112 mcg tablet RxNorm: 933720 TAKE ONE TABLET BY MOUT H DAILY 09/02/2015 11/25/2015 Inactive methocarbamol 750 mg tablet RxNorm: 040393 2 Tablet(s) PO TID as needed for muscle spasm 08/15/2015 01/09/2016 Inactive Wellbutrin XL 150 mg 24 hr tablet, extended release RxNorm: 427362 TAKE ONE TABLET BY MOUTH EVERY MORNING 08/13/2015 08/13/2015 Inactive gabapentin 600 mg tablet RxNorm: 596534 1 Tablet(s) PO BID 08/13/20 15 02/08/2016 Inactive Wellbutrin XL 300 mg 24 hr tablet, extended release RxNorm: 782806 1 Tablet(s) PO QAM 08/06/2015 09/09/2015 Inactive Wellbutrin XL 150 mg 24 hr tablet, extended release RxNorm: 455121 1 Tablet(s) PO QAM 07/18/2015 08/05/2015 Inactive prednisone 20 mg tablet RxNorm: 119057 1 Tablet(s) PO BID 07/18/2015 07/22/2015 Inactive doxycycline hyclate 100 mg tablet,delayed release RxNorm: 43 4018 1 Tablet(s) PO BID 07/18/2015 07/27/2015 Inactive pravastatin 40 mg tablet RxNorm: 660635 1 Tablet(s) PO QD NEEDS FASTING LAB 07/15/2015 07/14/2015 Inactive pravastatin 40 mg tablet RxNorm: 418048 1 Tablet(s) PO QD NEEDS FASTING LAB 07/15/2015 01/25/2018 Inactive Ventolin HFA 90 mcg/actuation aerosol inhaler RxNorm: 938865 2 Puff(s) INH Q4H 07/08/2015 07/07/2015 Inactive prn Premarin 0.45 mg tablet RxNorm: 915375 1 Tablet(s) PO QD 07/01/2015 0 12/22/2015 Inactive pravastatin 40 mg tablet RxNorm: 453564 1 Tablet(s) PO QD NEEDS FASTING LAB 06/14/2015 07/15/2015 Inactive Ventolin HFA 90 mcg/actuation aerosol inhaler RxNorm: 2242070 2 Puff(s) INH Q4H 06/06/2015 07/08/2015 Inactive prn albuterol sulfate 2.5 mg/3 mL (0.083 %) solution for n ebulization RxNorm: 307475 1 Unit Dose INH QID 05/30/2015 No Stop Date Active Duragesic 100 mcg/hr transdermal patch RxNorm: 620201 2 Application TD Q48H for pain 04/29/2015 05/28/2015 Inactive gabapentin 600 mg tablet RxNorm: 913267 1 Tablet(s) PO BID 04/11/20 15 08/13/2015 Inactive Onglyza 5 mg tablet RxNorm: 384974 1 Tablet(s) PO QD for blood suga r 04/10/2015 04/15/2015 Inactive [Brand Copay Card: RxBIN:[id number] PCN:CN RxGRP:[id number] ID#:[id number]] methocarbamol 750 mg tablet RxNorm: 892179 2 Tablet(s) PO TID as needed for muscle spasm 03/28/2015 08/15/2015 Inactive pravastatin 40 mg tablet RxNorm: 986538 1 Tablet(s) PO QD 03/19/2015 03/18/2015 Inactive pravastatin 40 mg tablet RxNorm: 281348 1 Tablet(s) PO QD 03/19/2015 06/14/2015 Inactive lactulose 10 gram/15 mL oral solution RxNorm: 341782 [address]s) PO QD 03/07/2015 01/09/2016 Inactive TAKE 1 TABLESPOON BY MOUTH ONCE DAILY oxycodone 20 mg tablet RxNorm: 9015593 1 Tablet(s) PO QID as nee ded for pain 03/05/2015 07/08/2015 Inactive Topamax 100 mg tablet RxNorm: 701517 1 Tablet(s) PO QHS TAKE ONE TABLET BY MOUTH AT BEDTIME 02/25/2015 02/12/2019 Inactive metformin ER 500 mg tablet,extended release 24 hr RxNorm: 86 0975 1 Tablet(s) PO QD 02/11/2015 03/04/2015 Inactive take one tablet by mouth every day Daliresp 500 mcg tablet RxNorm: 2575839 1 Tablet(s) PO QD 02/11/2015 08/09/2015 Inactive Endocet 10 mg-325 mg tablet RxNorm: 6553033 1 Tablet(s) PO Q4H as needed for pain 01/23/2015 01/23/2015 Inactive gabapentin 600 mg tablet RxNorm: 287355 1 Tablet(s) PO BID 01/23/20 15 04/11/2015 Inactive methocarbamol 750 mg tablet RxNorm: 578105 2 Tablet(s) PO TID as needed for muscle spasm 01/15/2015 02/13/2015 Inactive fluoxetine 40 mg capsule RxNorm: 372219 1 Capsule(s) PO QD 01/14/20 15 12/23/2015 Inactive TAKE ONE CAPSULE BY MOUTH EV JANKI MORNING fluoxetine 20 mg capsule RxNorm: 934408 1 Capsule(s) PO QD 01/14/20 15 12/23/2015 Inactive Premarin 0.45 mg tablet RxNorm: 553750 1 Tablet(s) PO QD 01/02/2015 0 07/01/2015 Inactive Endocet 10 mg-325 mg tablet RxNorm: 0081988 1-2 Tablet(s) PO Q4H 02/12/2019 Inactive PRN PAIN Duragesic 100 mcg/hr transdermal patch RxNorm: 488958 2 Application TD Q48H for pain 12/25/2014 01/23/2015 Inactive Topamax 100 mg tablet RxNorm: 628042 1 Tablet(s) PO QHS TAKE ONE TABLET BY MOUTH AT BEDTIME 12/25/2014 02/24/2015 Inactive Tudorza Pressair 400 mcg/actuation breath activated RxNorm: 7155334 1 BID INHALE ONE PUFF INTO LUNGS TWO TIMES A DAY 12/17/2014 05/15/2015 Inactive Endocet 10 mg-325 mg tablet RxNorm: 8004574 1-2 Tablet(s) PO Q4H 12/19/2014 Inactive PRN PAIN Duragesic 100 mcg/hr transdermal patch RxNorm: 169282 2 Application TD Q48H for pain 11/20/2014 12/24/2014 Inactive [employer] Ultra Test strips RxNorm: TEST BLOOD SUGAR ONCE DAILY 250.00 11/16/2014 01/08/2016 Inactive omeprazole 40 mg capsule,delayed release RxNorm: 240535 1 Capsu le(s) PO QD 11/13/2014 11/12/2015 Inactive metformin ER 500 mg tablet,extended release 24 hr RxNorm: 86 0975 1 Tablet(s) PO QD 11/12/2014 02/11/2015 Inactive take one tablet by mouth every day Symbicort 160 mcg-4.5 mcg/actuation HFA aerosol inhaler RxNo rm: 6286354 2 Puff(s) INH BID 11/12/2014 03/11/2015 Inactive INHALE 2 PUFFS O RALLY TWO TIMES A DAY gabapentin 800 mg tablet RxNorm: 412395 1 Tablet(s) PO QD TAKE ONE TABLET BY MOUTH ONCE A DAY 10/22/2014 01/01/2015 Inactive Endocet 10 mg-325 mg tablet RxNorm: 2637842 1-2 Tablet(s) PO Q4H 11/15/2014 Inactive PRN PAIN Duragesic 100 mcg/hr transdermal patch RxNorm: 536385 2 Application TD Q48H for pain 10/17/2014 11/19/2014 Inactive gabapentin 800 mg tablet RxNorm: 049917 1 Tablet(s) PO QD TAKE ONE TABLET BY MOUTH ONCE A DAY 10/04/2014 10/21/2014 Inactive Premarin 0.9 mg tablet RxNorm: 527623 1 Tablet(s) PO QD TAKE ONE TABLET BY MOUTH ONCE A DAY 10/04/2014 01/01/2015 Inactive Spiriva with HandiHaler 18 mcg & inhalation capsules RxNorm: 673092 1 Capsule(s) INH QD 10/03/2014 04/30/2015 Inactive Levaquin 500 mg tablet RxNorm: 402756 1 Tablet(s) PO QD 10/03/2014 Inactive prednisone 20 mg tablet RxNorm: 525680 1 Tablet(s) PO QD 10/03/2014 1 12/09/2013 Inactive Duragesic 100 mcg/hr transdermal patch RxNorm: 691908 2 Application TD Q48H for pain 09/18/2014 10/16/2014 Inactive Endocet 10 mg-325 mg tablet RxNorm: 4519759 1-2 Tablet(s) PO Q4H 10/16/2014 Inactive PRN PAIN Synthroid 112 mcg tablet RxNorm: 948249 1 Tablet(s) QD 09/10/2014 Inactive Synthroid 112 mcg tablet RxNorm: 502427 TAKE ONE TABLET BY MOUTH ONE TIME A DAY. NEEDS LABS 09/10/2014 02/06/2015 Inactive omeprazole 40 mg capsule,delayed release RxNorm: 519243 1 Capsu le(s) PO QD 09/03/2014 11/13/2014 Inactive omeprazole 40 mg capsule,delayed release RxNorm: 728304 1 Capsu le(s) PO QD 09/03/2014 09/02/2014 Inactive Spiriva with HandiHaler 18 mcg & inhalation capsules RxNorm: 040617 1 Capsule(s) INH QD 08/27/2014 10/02/2014 Inactive gabapentin 600 mg tablet RxNorm: 907551 1 Tablet(s) PO BID 08/27/20 14 10/22/2014 Inactive Endocet 10 mg-325 mg tablet RxNorm: 5802175 1-2 Tablet(s) PO Q4H 09/17/2014 Inactive PRN PAIN fentanyl 100 mcg/hr transdermal patch RxNorm: 631130 1 Unit Dos e TD QD 08/21/2014 09/19/2014 Inactive Daliresp 500 mcg tablet RxNorm: 2471839 1 Tablet(s) PO QD 08/13/2014 02/11/2015 Inactive Synthroid 112 mcg tablet RxNorm: 164762 TAKE ONE TABLET BY MOUTH ONE TIME A DAY. NEEDS LABS 08/10/2014 09/10/2014 Inactive Endocet 10 mg-325 mg tablet RxNorm: 8643425 1-2 Tablet(s) PO Q4H 08/17/2014 Inactive PRN PAIN Duragesic 100 mcg/hr transdermal patch RxNorm: 085152 2 Application TD Q48H for pain 07/19/2014 09/17/2014 Inactive fluoxetine 40 mg capsule RxNorm: 812728 1 Capsule(s) PO QD 07/17/20 14 01/14/2015 Inactive TAKE ONE CAPSULE BY MOUTH EV JANKI MORNING fluoxetine 20 mg capsule RxNorm: 748115 1 Capsule(s) PO QD 07/17/20 14 01/14/2015 Inactive Spiriva with HandiHaler 18 mcg & inhalation capsules RxNorm: 940354 1 Capsule(s) INH QD 07/17/2014 08/26/2014 Inactive INHALE CONTENTS OF 1 CAPSULE(S) WITH HANDIHALER ONCE DAILY Zofran 4 mg tablet RxNorm: 333464 1 Tablet(s) PO Q4H prn nausea 07/25/2014 Inactive Synthroid 112 mcg tablet RxNorm: 332542 1 Tablet(s) PO QD 07/09/2014 07/09/2014 Inactive methocarbamol 750 mg tablet RxNorm: 566978 2 Tablet(s) PO TID as needed for muscle spasm 07/09/2014 09/06/2014 Inactive Synthroid 112 mcg tablet RxNorm: 187650 1 Tablet(s) PO QD - nee d labs 07/09/2014 08/07/2014 Inactive Medrol (Aníbal) 4 mg tablets in a dose pack RxNorm: 041806 6 Tablet(s) PO QD --then as directed 07/03/2014 07/08/2014 Inactive Tudorza Pressair 400 mcg/actuation breath activated RxNorm: 6143403 1 Puff(s) INH BID 07/03/2014 12/17/2014 Inactive cefdinir 300 mg capsule RxNorm: 554831 1 Capsule(s) PO BID 07/03/20 14 07/12/2014 Inactive Topamax 100 mg tablet RxNorm: 006580 Tablet(s) TAKE ONE TABLET BY MOUTH AT BEDTIME 07/02/2014 02/25/2015 Inactive Duragesic 100 mcg/hr transdermal patch RxNorm: 580124 2 Application TD Q48H for pain 06/25/2014 07/18/2014 Inactive Endocet 10 mg-325 mg tablet RxNorm: 9486786 1-2 Tablet(s) PO Q4H 07/18/2014 Inactive PRN PAIN metformin ER 500 mg tablet,extended release 24 hr RxNorm: 86 0975 1 Tablet(s) PO QD Needs labs 06/18/2014 07/01/2014 Inactive take one tablet by mouth every day Duragesic 100 mcg/hr transdermal patch RxNorm: 813596 2 Application TD Q48H for pain 05/22/2014 06/24/2014 Inactive Synthroid 112 mcg tablet RxNorm: 031162 1 Tablet(s) PO QD 05/22/2014 07/09/2014 Inactive Endocet 10 mg-325 mg tablet RxNorm: 0576844 1-2 Tablet(s) PO Q4H 06/20/2014 Inactive PRN PAIN Endocet 10 mg-325 mg tablet RxNorm: 1318122 1-2 Tablet(s) PO Q4H 05/21/2014 Inactive PRN PAIN Duragesic 100 mcg/hr transdermal patch RxNorm: 709933 2 Application TD Q48H for pain 04/25/2014 05/21/2014 Inactive Daliresp 500 mcg tablet RxNorm: 2879416 1 Tablet(s) PO QD 04/24/2014 08/13/2014 Inactive Symbicort 160 mcg-4.5 mcg/actuation HFA aerosol inhaler RxNo rm: 3516555 2 Puff(s) INH BID 04/24/2014 08/21/2014 Inactive INHALE 2 PUFFS O RALLY TWO TIMES A DAY metformin ER 500 mg tablet,extended release 24 hr RxNorm: 86 0975 1 Tablet(s) PO QD 04/24/2014 11/12/2014 Inactive TAKE ONE TABLET BY MOUTH EVERY DAY [AttnRPh:Saving Apply/Adjudicate RxGRP:LDMGRP RxBIN:[id number] RxPCN:2012 PCode:01 ID#:[id number]] Symbicort 160 mcg-4.5 mcg/actuation HFA aerosol inhaler RxNo rm: 2537958 2 Puff(s) INH BID 04/24/2014 11/12/2014 Inactive INHALE 2 PUFFS O RALLY TWO TIMES A DAY Premarin 0.9 mg tablet RxNorm: 866889 1 Tablet(s) PO QD 04/24/2014 Inactive TAKE ONE TABLET BY MOUTH EVERY DAY metformin ER 500 mg tablet,extended release 24 hr RxNorm: 86 0975 1 Tablet(s) PO QD Needs labs 04/24/2014 06/18/2014 Inactive TAKE ONE TABLET BY MOUTH EVERY DAY [AttnRPh:Saving Apply/Adjudicate RxGRP:LDMGRP RxBIN:[id number] RxPCN:2012 PCode:01 ID#:[id number]] gabapentin 800 mg tablet RxNorm: 838013 1 Tablet(s) PO QD 04/24/2014 10/04/2014 Inactive TAKE ONE TABLET BY MOUTH EVERY DAY Topamax 100 mg tablet RxNorm: 651807 1 Tablet(s) PO QHS 04/17/2014 Inactive Topamax 100 mg tablet RxNorm: 612617 TAKE ONE TABLET BY MOUTH A T BEDTIME 04/17/2014 07/01/2014 Inactive Tudorza Pressair 400 mcg/actuation breath activated RxNorm: 2505197 1 Puff(s) INH BID 04/11/2014 07/02/2014 Inactive Duragesic 100 mcg/hr transdermal patch RxNorm: 566008 2 Application TD Q48H for pain 03/27/2014 04/24/2014 Inactive Endocet 10 mg-325 mg tablet RxNorm: 0236084 1-2 Tablet(s) PO Q4H 04/24/2014 Inactive PRN PAIN Robaxin 750 mg tablet RxNorm: 147425 2 Tablet(s) PO TID as need ed for spasm 02/23/2014 03/28/2015 Inactive Duragesic 100 mcg/hr transdermal patch RxNorm: 003015 2 Application TD Q48H for pain 02/23/2014 No Stop Date Active Endocet 10 mg-325 mg tablet RxNorm: 9010286 1-2 Tablet(s) PO Q4H 03/23/2014 Inactive PRN PAIN Synthroid 112 mcg tablet RxNorm: 208858 1 Tablet(s) PO QD TAKE ONE TABLET BY MOUTH EVERY DAY 02/15/2014 05/22/2014 Inactive Zithromax 500 mg tablet RxNorm: 342426 1 Tablet(s) PO QD 01/30/2014 0 02/05/2014 Inactive Diflucan 100 mg tablet RxNorm: 900893 1 Tablet(s) PO QD 01/30/2014 Inactive prednisone 20 mg tablet RxNorm: 009229 1 Tablet(s) PO BID 01/30/2014 02/05/2014 Inactive fluoxetine 40 mg capsule RxNorm: 652050 1 Capsule(s) PO QD 01/23/20 14 07/16/2014 Inactive TAKE ONE CAPSULE BY MOUTH EV JANKI MORNING fluoxetine 40 mg capsule RxNorm: 248382 1 Capsule(s) PO QD 01/23/20 14 07/17/2014 Inactive TAKE ONE CAPSULE BY MOUTH EV JANKI MORNING cefdinir 300 mg capsule RxNorm: 642735 1 Capsule(s) PO BID 01/16/20 14 01/29/2014 Inactive Zithromax 500 mg tablet RxNorm: 741644 1 Tablet(s) PO QD 01/16/2014 0 01/22/2014 Inactive prednisone 20 mg tablet RxNorm: 715348 1 Tablet(s) PO BID 01/16/2014 01/22/2014 Inactive Spiriva with HandiHaler 18 mcg and inhalation capsules RxNor m: 563954 1 Capsule(s) INH QD 12/18/2013 07/17/2014 Inactive INHALE CONTENT S OF 1 CAPSULE(S) WITH HANDIHALER ONCE DAILY fluoxetine 20 mg capsule RxNorm: 976660 1 Capsule(s) PO QD 12/18/19 14 06/15/2014 Inactive Spiriva with HandiHaler 18 mcg & inhalation capsules RxNorm: 359302 1 Capsule(s) INH QD 12/18/2013 06/15/2014 Inactive INHALE CONTENTS OF 1 CAPSULE(S) WITH HANDIHALER ONCE DAILY fluoxetine 20 mg capsule RxNorm: 748629 1 Capsule(s) PO QD 12/18/19 14 07/17/2014 Inactive cefdinir 300 mg capsule RxNorm: 548361 2 Capsule(s) PO QD 12/12/2013 12/21/2013 Inactive Duragesic 100 mcg/hr transdermal patch RxNorm: 895684 2 Application TD Q48H for pain 12/08/2013 12/07/2013 Inactive Topamax 100 mg tablet RxNorm: 788683 1 Tablet(s) PO QHS 12/04/2013 Inactive Endocet 10 mg-325 mg tablet RxNorm: 1806766 1-2 Tablet(s) PO Q4H 12/26/2013 Inactive PRN PAIN Robaxin 750 mg tablet RxNorm: 638555 2 Tablet(s) PO TID as need ed for spasm 11/07/2013 01/05/2014 Inactive gabapentin 800 mg tablet RxNorm: 805771 1 Tablet(s) PO QD 10/16/2013 04/24/2014 Inactive TAKE ONE TABLET BY MOUTH EVERY DAY Symbicort 160 mcg-4.5 mcg/actuation HFA aerosol inhaler RxNo rm: 1649686 2 Puff(s) INH BID 10/16/2013 04/24/2014 Inactive INHALE 2 PUFFS O RALLY TWO TIMES A DAY Premarin 0.9 mg tablet RxNorm: 960939 1 Tablet(s) PO QD 10/16/2013 Inactive TAKE ONE TABLET BY MOUTH EVERY DAY metformin ER 500 mg tablet,extended release 24 hr RxNorm: 86 0975 1 Tablet(s) PO QD 10/16/2013 04/24/2014 Inactive TAKE ONE TABLET BY MOUTH EVERY DAY Daliresp 500 mcg tablet RxNorm: 3375622 1 Tablet(s) PO QD 10/16/2013 04/24/2014 Inactive Robaxin 750 mg tablet RxNorm: 375958 2 Tablet(s) PO TID as need ed for spasm 10/10/2013 11/06/2013 Inactive Duragesic 100 mcg/hr transdermal patch RxNorm: 669360 2 Application TD Q48H for pain 10/09/2013 No Stop Date Active Soma 350 mg tablet RxNorm: 958246 1 Tablet(s) PO TID 09/27/201310/09 Inactive TAKE ONE TABLET BY MOUTH THREE TIMES A D AY lactulose 10 gram/15 mL oral solution RxNorm: 651697 [address](s) PO QD 09/13/2013 03/07/2015 Inactive TAKE 1 TABLESPOON BY MOUTH ONCE DAILY Duragesic 100 mcg/hr transdermal patch RxNorm: 718526 2 Application TD Q48H for pain 09/06/2013 No Stop Date Active Endocet 10 mg-325 mg tablet RxNorm: 0796782 1-2 Tablet(s) PO Q4H 09/27/2013 Inactive PRN PAIN lancets 28 gauge RxNorm: Miscellaneous As needed for blo od glucose sticks 08/24/2013 No Stop Date Active 16.2 mg-0.1037 mg-0.0194 mg tablet RxNorm: 9350671 Tablet(s) PO PRN for gas and cramping 08/24/2013 01/19/2017 Inactive TAKE TWO TABLET S BY MOUTH THREE TIMES A DAY NEEDED FOR GAS AND CRAMPING Topamax 100 mg tablet RxNorm: 880186 1 Tablet(s) PO QHS 07/31/2013 Inactive Diflucan 100 mg tablet RxNorm: 443596 1 Tablet(s) PO QD 07/27/2013 Inactive cefdinir 300 mg capsule RxNorm: 386316 1 Capsule(s) PO BID 07/26/20 13 08/08/2013 Inactive Daliresp 500 mcg tablet RxNorm: 5130065 1 Tablet(s) PO QD 07/25/2013 10/15/2013 Inactive fluoxetine 40 mg capsule RxNorm: 994302 1 Capsule(s) PO QD 07/25/20 13 01/22/2014 Inactive TAKE ONE CAPSULE BY MOUTH EV JANKI MORNING Senokot-S 8.6 mg-50 mg tablet RxNorm: 3586142 1 Tablet(s) PO BID 10/25/2013 Inactive doxycycline hyclate 100 mg capsule RxNorm: 2704139 1 Capsule(s) PO BID 06/28/2013 07/07/2013 Inactive prednisone 20 mg tablet RxNorm: 751277 1 Tablet(s) PO BID 06/28/2013 07/04/2013 Inactive Zofran 4 mg tablet RxNorm: 468024 1 Tablet(s) PO Q4H prn nausea 03/201307/05/2013 Inactive Spiriva with HandiHaler 18 mcg & inhalation capsules RxNorm: 680938 1 Capsule(s) INH QD 06/26/2013 12/18/2013 Inactive INHALE CONTENTS OF 1 CAPSULE(S) WITH HANDIHALER ONCE DAILY Synthroid 112 mcg tablet RxNorm: 388151 1 Tablet(s) PO QD TAKE ONE TABLET BY MOUTH EVERY DAY 06/19/2013 02/15/2014 Inactive fluoxetine 20 mg capsule RxNorm: 025816 1 Capsule(s) PO QD 06/19/20 13 12/18/2013 Inactive Ventolin HFA 90 mcg/actuation Aerosol Inhaler RxNorm: 7111663 2 Puff(s) INH Q4H 06/05/2013 No Stop Date Active prn Soma 350 mg tablet RxNorm: 278614 1 Tablet(s) PO TID 06/05/201307/04 Inactive TAKE ONE TABLET BY MOUTH THREE TIMES A D AY prednisone 20 mg tablet RxNorm: 058322 1 Tablet(s) PO QD 05/31/2013 0 06/06/2013 Inactive Topamax 100 mg tablet RxNorm: 595797 1 Tablet(s) PO QHS 05/22/2013 Inactive Levaquin 500 mg tablet RxNorm: 380005 1 Tablet(s) PO QD 05/03/2013 Inactive Diflucan 100 mg tablet RxNorm: 146616 1 Tablet(s) PO QD 05/03/2013 Inactive Daliresp 500 mcg tablet RxNorm: 9601989 1 Tablet(s) PO QD 05/01/2013 07/24/2013 Inactive Daliresp 500 mcg tablet RxNorm: 4550852 1 Tablet(s) PO QD 05/01/2013 04/30/2013 Inactive gabapentin 800 mg tablet RxNorm: 786527 1 Tablet(s) PO QD 04/10/2013 10/06/2013 Inactive TAKE ONE TABLET BY MOUTH EVERY DAY metformin ER 500 mg tablet,extended release 24 hr RxNorm: 86 0977 1 Tablet(s) PO QD 04/10/2013 10/06/2013 Inactive TAKE ONE TABLET BY MOUTH EVERY DAY Premarin 0.9 mg tablet RxNorm: 157301 1 Tablet(s) PO QD 04/10/2013 Inactive TAKE ONE TABLET BY MOUTH EVERY DAY Symbicort 160 mcg-4.5 mcg/actuation HFA aerosol inhaler RxNo rm: 5731292 2 Puff(s) INH BID 04/10/2013 10/06/2013 Inactive INHALE 2 PUFFS O RALLY TWO TIMES A DAY Synthroid 112 mcg tablet RxNorm: 599358 1 Tablet(s) PO QD TAKE ONE TABLET BY MOUTH EVERY DAY 04/10/2013 06/18/2013 Inactive Ventolin HFA 90 mcg/actuation Aerosol Inhaler RxNorm: 555783 2 Puff(s) INH Q4H 04/10/2013 No Stop Date Active prn fentanyl 100 mcg/hr transdermal patch RxNorm: 992520 1 Unit Dos e TD QD 04/03/2013 05/02/2013 Inactive Endocet 10 mg-325 mg tablet RxNorm: 6033377 1-2 Tablet(s) PO Q4H 05/02/2013 Inactive PRN PAIN Topamax 100 mg tablet RxNorm: 729235 1 Tablet(s) PO QHS 03/13/2013 Inactive Reglan 10 mg tablet RxNorm: 844656 1 Tablet(s) PO QID b efore meals and at bedtime 03/13/2013 04/09/2015 Inactive fluoxetine 20 mg capsule RxNorm: 049457 1 Capsule(s) PO QD 02/28/20 13 05/27/2013 Inactive Ventolin HFA 90 mcg/actuation Aerosol Inhaler RxNorm: 530385 2 Puff(s) INH Q4H 02/13/2013 No Stop Date Active prn fluoxetine 40 mg capsule RxNorm: 331575 1 Capsule(s) PO QD 01/31/20 13 07/24/2013 Inactive TAKE ONE CAPSULE BY MOUTH EV JANKI MORNING Soma 350 mg tablet RxNorm: 579479 1 Tablet(s) PO TID 01/20/201302/18 Inactive TAKE ONE TABLET BY MOUTH THREE TIMES A D AY Endocet 10 mg-325 mg tablet RxNorm: 7109173 1-2 Tablet(s) PO Q4H 02/06/2013 Inactive PRN PAIN MS Contin 200 mg tablet,extended release RxNorm: 099974 1 Table t(s) PO BID 01/18/2013 02/06/2013 Inactive Ventolin HFA 90 mcg/actuation Aerosol Inhaler RxNorm: 109538 2 Puff(s) INH Q4H 01/04/2013 No Stop Date Active prn Spiriva with HandiHaler 18 mcg & inhalation capsules RxNorm: 641301 1 Capsule(s) INH QD 12/29/2012 06/25/2013 Inactive INHALE CONTENTS OF 1 CAPSULE(S) WITH HANDIHALER ONCE DAILY Spiriva with HandiHaler 18 mcg & inhalation capsules RxNorm: 498295 1 Capsule(s) INH QD 12/26/2012 12/28/2012 Inactive INHALE CONTENTS OF 1 CAPSULE(S) WITH HANDIHALER ONCE DAILY Synthroid 112 mcg tablet RxNorm: 197980 Tablet(s) PO TA KE ONE TABLET BY MOUTH EVERY DAY 12/26/2012 04/09/2013 Inactive Endocet 10 mg-325 mg tablet RxNorm: 4652088 1-2 Tablet(s) PO Q4H 01/17/2013 Inactive PRN PAIN MS Contin 200 mg tablet,extended release RxNorm: 245640 1 Table t(s) PO BID 12/21/2012 01/17/2013 Inactive fluoxetine 20 mg capsule RxNorm: 951620 1 Capsule(s) PO QD 12/06/1902/26/2013 Inactive Synthroid 112 mcg tablet RxNorm: 181190 1 Tablet(s) PO QD 12/06/2012 02/12/2019 Inactive TAKE ONE TABLET BY MOUTH EVERY DAY Ventolin HFA 90 mcg/actuation Aerosol Inhaler RxNorm: 136696 2 Puff(s) INH Q4H 12/06/2012 No Stop Date Active prn Reglan 10 mg tablet RxNorm: 371215 1 Tablet(s) PO QID b efore meals and at bedtime 11/24/2012 03/12/2013 Inactive Topamax 100 mg tablet RxNorm: 044021 1 Tablet(s) PO QHS 11/16/2012 Inactive Ventolin HFA 90 mcg/actuation Aerosol Inhaler RxNorm: 985782 2 Puff(s) INH Q4H 11/09/2012 No Stop Date Active prn gabapentin 800 mg tablet RxNorm: 021700 1 Tablet(s) PO QD 10/27/2012 04/09/2013 Inactive TAKE ONE TABLET BY MOUTH EVERY DAY metformin ER 500 mg tablet,extended release 24 hr RxNorm: 86 0977 1 Tablet(s) PO QD 10/27/2012 04/09/2013 Inactive TAKE ONE TABLET BY MOUTH EVERY DAY Symbicort 160 mcg-4.5 mcg/actuation HFA Aerosol Inhaler RxNo rm: 6728562 2 Puff(s) INH BID 10/27/2012 04/09/2013 Inactive INHALE 2 PUFFS O RALLY TWO TIMES A DAY Premarin 0.9 mg tablet RxNorm: 484610 1 Tablet(s) PO QD 10/27/2012 Inactive TAKE ONE TABLET BY MOUTH EVERY DAY Endocet 10 mg-325 mg tablet RxNorm: 0057491 1-2 Tablet(s) PO Q4H 11/24/2012 Inactive PRN PAIN MS Contin 200 mg tablet,extended release RxNorm: 263008 1 Table t(s) PO BID 10/26/2012 11/24/2012 Inactive Soma 350 mg tablet RxNorm: 309081 1 Tablet(s) PO TID 10/04/201211/02 Inactive TAKE ONE TABLET BY MOUTH THREE TIMES A D AY Ventolin HFA 90 mcg/actuation Aerosol Inhaler RxNorm: 657190 2 Puff(s) INH Q4H 10/03/2012 No Stop Date Active prn Daliresp 500 mcg tablet RxNorm: 9686304 1 Tablet(s) PO QD 09/28/2012 09/27/2012 Inactive Daliresp 500 mcg tablet RxNorm: 6605421 1 Tablet(s) PO QD 09/28/2012 04/25/2013 Inactive fluoxetine 20 mg capsule RxNorm: 160070 1 Capsule(s) PO QD 09/05/2012/06/2012 Inactive Topamax 50 mg tablet RxNorm: 709617 Tablet(s) PO for 1w k then 1 po q HS for 1wk then 2 po q HS 08/29/2012 09/27/2012 Inactive TAKE 1/2 TABLET BY MOUTH AT BEDTIME FOR 1 WEEK, THEN 1 TABLET AT BEDTIME FOR 1 WEEK, THEN 2 TABLETS AT BEDTIME Topamax 100 mg tablet RxNorm: 250202 1 Tablet(s) PO QHS 08/29/2012 Inactive Ventolin HFA 90 mcg/actuation Aerosol Inhaler RxNorm: 162880 2 Puff(s) INH Q4H 08/19/2012 No Stop Date Active prn Ventolin HFA 90 mcg/actuation Aerosol Inhaler RxNorm: 027366 2 Puff(s) INH Q4H 08/15/2012 No Stop Date Active prn Synthroid 112 mcg tablet RxNorm: 189948 1 Tablet(s) PO QD 08/10/2012 11/07/2012 Inactive TAKE ONE TABLET BY MOUTH EVERY DAY Synthroid 112 mcg tablet RxNorm: 427358 1 Tablet(s) PO QD 08/01/2012 08/09/2012 Inactive TAKE ONE TABLET BY MOUTH EVERY DAY Reglan 10 mg tablet RxNorm: 165196 1 Tablet(s) PO QID b efore meals and at bedtime 08/01/2012 11/23/2012 Inactive fluoxetine 40 mg capsule RxNorm: 455846 1 Capsule(s) PO QD 08/01/2001/27/2013 Inactive TAKE ONE CAPSULE BY MOUTH EV JANKI MORNING Ventolin HFA 90 mcg/actuation Aerosol Inhaler RxNorm: 974101 2 Puff(s) INH Q4H 08/01/2012 No Stop Date Active prn Soma 350 mg tablet RxNorm: 502159 1 Tablet(s) PO TID 07/20/201208/18 Inactive TAKE ONE TABLET BY MOUTH THREE TIMES A D AY Spiriva with HandiHaler 18 mcg & inhalation capsules RxNorm: 930697 1 Capsule(s) INH 07/01/2012 12/25/2012 Inactive INHALE CONTENTS OF 1 CAPSULE(S) WITH HANDIHALER ONCE DAILY Zithromax 250 mg Tab RxNorm: 923125 2 Tablet(s) PO QD 06/28/201206/22 Inactive MS Contin 200 mg tablet,extended release RxNorm: 746074 1 Table t(s) PO BID 06/28/2012 07/27/2012 Inactive Endocet 10 mg-325 mg tablet RxNorm: 6231237 1-2 Tablet(s) PO Q4H 07/27/2012 Inactive PRN PAIN Topamax 100 mg tablet RxNorm: 750651 1 Tablet(s) PO QHS 06/28/2012 Inactive 16.2 mg-0.1037 mg-0.0194 mg tablet RxNorm: 6435567 Tablet(s) PO PRN for gas and cramping 06/08/2012 08/23/2013 Inactive TAKE TWO TABLET S BY MOUTH THREE TIMES A DAY NEEDED FOR GAS AND CRAMPING Ventolin HFA 90 mcg/actuation Aerosol Inhaler RxNorm: 714043 2 Puff(s) INH Q4H 05/23/2012 No Stop Date Active prn Ventolin HFA 90 mcg/actuation Aerosol Inhaler RxNorm: 728943 2 Puff(s) INH Q4H 05/11/2012 No Stop Date Active prn Synthroid 112 mcg tablet RxNorm: 959393 1 Tablet(s) PO QD 05/09/2012 07/31/2012 Inactive TAKE ONE TABLET BY MOUTH EVERY DAY gabapentin 800 mg tablet RxNorm: 818577 1 Tablet(s) PO QD 05/09/2012 10/26/2012 Inactive TAKE ONE TABLET BY MOUTH EVERY DAY fluoxetine 40 mg capsule RxNorm: 896105 1 Capsule(s) PO QD 05/09/2007/31/2012 Inactive TAKE ONE CAPSULE BY MOUTH EV JANKI MORNING metformin ER 500 mg tablet,extended release 24 hr RxNorm: 86 0977 1 Tablet(s) PO QD 05/09/2012 10/26/2012 Inactive TAKE ONE TABLET BY MOUTH EVERY DAY Premarin 0.9 mg tablet RxNorm: 232789 1 Tablet(s) PO QD 05/09/2012 Inactive TAKE ONE TABLET BY MOUTH EVERY DAY Symbicort 160 mcg-4.5 mcg/actuation HFA Aerosol Inhaler RxNo rm: 2266879 2 Puff(s) INH BID 05/09/2012 10/26/2012 Inactive INHALE 2 PUFFS O RALLY TWO TIMES A DAY Endocet 10 mg-325 mg Tab RxNorm: 4468814 1-2 Tablet(s) PO Q4H 04/2705/26/2012 Inactive PRN PAIN MS Contin 200 mg Tab RxNorm: 664930 1 Tablet(s) PO BID 04/26/201202/2012 Inactive Ventolin HFA 90 mcg/actuation Aerosol Inhaler RxNorm: 291214 2 Puff(s) INH Q4H 04/25/2012 05/10/2012 Inactive prn Soma 350 mg tablet RxNorm: 524069 2 Tablet(s) PO TID 04/19/201207/19 Inactive TAKE ONE TABLET BY MOUTH THREE TIMES A D AY Ventolin HFA 90 mcg/actuation Aerosol Inhaler RxNorm: 935155 2 Puff(s) INH Q4H 04/12/2012 04/24/2012 Inactive prn Reglan 10 mg tablet RxNorm: 732183 1 Tablet(s) PO QID b efore meals and at bedtime 04/11/2012 07/31/2012 Inactive MS Contin 200 mg Tab RxNorm: 437124 1 Tablet(s) PO BID 03/30/201202/2012 Inactive Endocet 10 mg-325 mg Tab RxNorm: 2341799 1-2 Tablet(s) PO Q4H 03/3004/26/2012 Inactive PRN PAIN MS Contin 200 mg Tab RxNorm: 313038 1 Tablet(s) PO BID 03/02/201206/2012 Inactive Endocet 10 mg-325 mg Tab RxNorm: 9080880 1-2 Tablet(s) PO Q4H 03/0203/29/2012 Inactive PRN PAIN Daliresp 500 mcg tablet RxNorm: 1742751 1 Tablet(s) PO QD 03/01/2012 09/28/2012 Inactive MS Contin 200 mg Tab RxNorm: 252814 1 Tablet(s) PO BID 02/02/201208/2012 Inactive Endocet 10 mg-325 mg Tab RxNorm: 9335883 1-2 Tablet(s) PO Q4H 02/0103/01/2012 Inactive PRN PAIN fluoxetine 40 mg capsule RxNorm: 180976 1 Capsule(s) PO QD 02/02/2008/01/2012 Inactive TAKE ONE CAPSULE BY MOUTH EV JANKI MORNING Synthroid 112 mcg Tab RxNorm: 654198 1 Tablet(s) PO QD 01/18/2012 Inactive TAKE ONE TABLET BY MOUTH EVERY DAY lactulose 10 gram/15 mL oral solution RxNorm: 803518 [address]s) PO QD 01/18/2012 No Stop Date Active TAKE 1 TABLESPOON BY MOUTH ONCE DAILY Ventolin HFA 90 mcg/actuation Aerosol Inhaler RxNorm: 423170 2 Puff(s) INH Q4H 01/18/2012 04/11/2012 Inactive prn MS Contin 200 mg Tab RxNorm: 627773 1 Tablet(s) PO BID 01/05/201210/2012 Inactive Endocet 10 mg-325 mg Tab RxNorm: 2036855 1-2 Tablet(s) PO Q4H 01/0502/01/2012 Inactive PRN PAIN ProAir HFA 90 mcg/Actuation Aerosol Inhaler RxNorm: 361055 2 Pu ff(s) INH Q4H 12/21/2011 No Stop Date Active prn for wheezing or shortness of breath Spiriva with HandiHaler 18 mcg & inhalation Caps RxNorm: 580 261 1 Capsule(s) INH 12/21/2011 06/30/2012 Inactive INHALE CONTENTS OF 1 CAPSULE(S) WITH HANDIHALER ONCE DAILY Reglan 10 mg Tab RxNorm: 676715 1 Tablet(s) PO QID before meals and at bedtime 12/21/2011 04/10/2012 Inactive Synthroid 112 mcg Tab RxNorm: 831514 1 Tablet(s) PO QD 12/21/2011 Inactive TAKE ONE TABLET BY MOUTH EVERY DAY Endocet 10 mg-325 mg Tab RxNorm: 8932847 1-2 Tablet(s) PO Q4H 11/2512/24/2011 Inactive PRN PAIN MS Contin 200 mg Tab RxNorm: 985668 1 Tablet(s) PO BID 11/25/201112/2011 Inactive lactulose 10 gram/15 mL Oral Soln RxNorm: 102317 Milliliter(s) PO 1 No Stop Date Active TAKE 1 TABLESPOON BY MOUTH O NCE DAILY lactulose 10 gram/15 mL Oral Soln RxNorm: 662868 Milliliter(s) PO 1 12/12/2010 11/20/2011 Inactive TAKE 1 TABLESPOON BY MOUTH O NCE DAILY Premarin 0.9 mg Tab RxNorm: 575486 1 Tablet(s) PO QD 10/12/201105/08 Inactive TAKE ONE TABLET BY MOUTH EVERY DAY fluoxetine 20 mg capsule RxNorm: 190731 1 Capsule(s) PO QD 10/12/20 11 09/05/2012 Inactive TAKE ONE CAPSULE BY MOUTH EV Synthroid 112 mcg Tab RxNorm: 979123 1 Tablet(s) PO QD 10/12/2011 Inactive TAKE ONE TABLET BY MOUTH EVERY DAY metformin ER 500 mg 24 hr Tab RxNorm: 642012 1 Tablet(s) PO QD 09/2311/10/2011 Inactive TAKE ONE TABLET BY MOUTH GLYNN RY DAY Synthroid 112 mcg Tab RxNorm: 106282 1 Tablet(s) PO QD 10/12/2011 Inactive TAKE ONE TABLET BY MOUTH EVERY DAY metformin ER 500 mg 24 hr Tab RxNorm: 571922 1 Tablet(s) PO QD 09/2310/11/2011 Inactive TAKE ONE TABLET BY MOUTH GLYNN RY DAY Prevacid 30 mg Cap RxNorm: 012840 Capsule(s) PO 10/12/2011 01/25/2012 Inactive TAKE ONE CAPSULE BY MOUTH EVERY DAY Symbicort 160 mcg-4.5 mcg/actuation HFA Aerosol Inhaler RxNo rm: 5902586 2 Puff(s) INH BID 10/12/2011 05/08/2012 Inactive INHALE 2 PUFFS O RALLY TWO TIMES A DAY gabapentin 800 mg Tab RxNorm: 179421 1 Tablet(s) PO QD 10/12/2011 Inactive TAKE ONE TABLET BY MOUTH EVERY DAY MS Contin 200 mg Tab RxNorm: 910847 1 Tablet(s) PO BID 09/23/201111/2010 Inactive Endocet 10 mg-325 mg Tab RxNorm: 4905834 1-2 Tablet(s) PO Q4H 09/2310/22/2011 Inactive PRN PAIN Endocet 10 mg-325 mg Tab RxNorm: 6225568 1-2 Tablet(s) PO Q4H 08/2109/19/2011 Inactive PRN PAIN MS Contin 200 mg Tab RxNorm: 649307 1 Tablet(s) PO BID 08/21/2011 Inactive Diflucan 100 mg Tab RxNorm: 648679 1 Tablet(s) PO QD 08/10/201108/16 Inactive cefdinir 300 mg Cap RxNorm: 217964 2 Capsule(s) PO QD 08/10/201107/24 Inactive Reglan 10 mg Tab RxNorm: 881205 1 Tablet(s) PO AC & HS 07/15/2011 Inactive Endocet 10 mg-325 mg Tab RxNorm: 9926631 1-2 Tablet(s) PO Q4H 07/1508/13/2011 Inactive PRN PAIN One Touch Ultra Test strips RxNorm: Miscellaneous BID 06/11/2011 1 01/16/2014 Inactive TEST TWO TIMES A DAY lactulose 10 gram/15 mL Oral Soln RxNorm: 253827 Milliliter(s) PO 0 06/10/2011 10/11/2011 Inactive TAKE 1 TABLESPOON BY MOUTH O NCE DAILY Chantix Continuing Month Aníbal 1 mg Tab RxNorm: 037907 Tablet(s) PO 0 06/10/2011 11/02/2011 Inactive TAKE DIRECTED - PER PACK[employer] GE INSTRUCTIONS fluoxetine 40 mg Cap RxNorm: 522841 Capsule(s) PO 06/10/2011 02/02/20 Inactive TAKE ONE CAPSULE BY MOUTH EVERY MORNING Chantix Continuing Month Aníbal 1 mg Tab RxNorm: 545599 Ta blet(s) PO TAKE DIRECTED - PER PACKAGE INSTRUCTIONS 05/13/2011 06/09/2011 Inactive Soma 350 mg Tab RxNorm: 418290 Tablet(s) PO TAKE ON E TABLET BY MOUTH THREE TIMES A DAY 05/13/2011 04/18/2012 Inactive Chantix Continuing Month Aníbal 1 mg Tab RxNorm: 336340 Ta blet(s) PO as directed per package instructions. 04/22/2011 05/12/2011 Inactive Symbicort 160 mcg-4.5 mcg/Actuation HFA Aerosol Inhaler RxNo rm: [id number] HFA Aerosol Inhaler INH INHALE 2 PUFFS ORALLY TWO TIMES A DAY 04/13/2011 Inactive Synthroid 112 mcg Tab RxNorm: 605429 Tablet(s) PO TAKE ONE TABLET BY MOUTH EVERY DAY 04/13/2011 10/12/2011 Inactive Premarin 0.9 mg Tab RxNorm: 482484 Tablet(s) PO TAKE ON E TABLET BY MOUTH EVERY DAY 04/13/2011 10/12/2011 Inactive gabapentin 800 mg Tab RxNorm: 106323 Tablet(s) PO TAKE ONE TABLET BY MOUTH EVERY DAY 04/13/2011 10/12/2011 Inactive Prevacid 30 mg Cap RxNorm: 182401 1 Capsule(s) PO QD 04/13/201110/11 Inactive Spiriva with HandiHaler 18 mcg & inhalation Caps RxNorm: 580 261 Capsule(s) INH INHALE CONTENTS OF 1 CAPSULE(S) WITH HANDIHALER ONCE DAILY 04/13/2011 12/21/2011 Inactive metformin ER 500 mg 24 hr Tab RxNorm: 497083 Tablet(s) PO TAKE ONE TABLET BY MOUTH EVERY DAY 04/13/2011 10/12/2011 Inactive Soma 350 mg Tab RxNorm: 114452 1 Tablet(s) PO QID 03/30/2011 02/13/20 19 Inactive fluoxetine 20 mg Cap RxNorm: 282224 Capsule(s) PO TAKE ONE CAPSULE BY MOUTH EVERY DAY 03/25/2011 10/12/2011 Inactive cefdinir 300 mg Cap RxNorm: 252520 2 Capsule(s) PO QD 03/19/201105/2011 Inactive 16.2 mg-0.1037 mg-0.0194 mg Tab RxNorm: 0926612 2 Tablet(s) PO TID PRN for gas and cramping 03/16/2011 07/13/2011 Inactive Soma 350 mg Tab RxNorm: 808502 2 Tablet(s) PO TID 03/16/2011 03/29/20 11 Inactive Chantix Starting Month Aníbal 0.5 mg (11)-1 mg (3x14) Tab s in a Dose Pack RxNorm: 414639 Tablet(s) PO as directed 03/02/2011 No Stop Date Active diazepam 10 mg Tab RxNorm: 627543 1 Tablet(s) PO BID 02/10/201101/19 Inactive Zofran 4 mg tablet RxNorm: 025479 1 Tablet(s) PO Q4H prn nausea 02/16/2011 Inactive Diflucan 100 mg Tab RxNorm: 746058 1 Tablet(s) PO QD 01/18/201101/24 Inactive Premarin 0.625 mg/g Vaginal Cream RxNorm: 818988 VAG In sert 1gm vaginally at bedtime 3 times weekly 01/18/2011 02/12/2019 Inactive loratadine 10 mg Tab RxNorm: 7416109 1 Tablet(s) PO QD 12/17/201003/2012 Inactive Spiriva with HandiHaler 18 mcg & inhalation Caps RxNorm: 580 261 1 Capsule(s) INH QD 12/17/2010 04/12/2011 Inactive Diflucan 100 mg Tab RxNorm: 682621 1 Tablet(s) PO QD 12/17/201012/23 Inactive diazepam 10 mg Tab RxNorm: 948453 1 Tablet(s) PO BID and PRN 201002/12/2019 Inactive One Touch Ultra Test Strips RxNorm: InVt BID Zainab t blood sugar at least twice daily. 11/11/2010 06/11/2011 Inactive fluoxetine 40 mg Cap RxNorm: 547415 1 Capsule(s) PO QAM 11/11/2010 Inactive diazepam 10 mg Tab RxNorm: 608793 1 Tablet(s) PO BID and PRN 200911/12/2010 Inactive Bactrim DS 800 mg-160 mg Tab RxNorm: 257405 1 Tablet(s) PO BID 09/2210/15/2010 Inactive fluoxetine 20 mg Cap RxNorm: 311288 1 Capsule(s) PO QD 10/02/201008/2011 Inactive Bactrim DS 800 mg-160 mg Tab RxNorm: 582922 1 Tablet(s) PO BID 01/201010/03/2010 Inactive Zofran 4 mg Tab RxNorm: 128720 1 Tablet(s) PO Q4H prn nausea 200910/16/2010 Inactive 16.2 mg-0.1037 mg-0.0194 mg Tab RxNorm: 2064186 2 Tablet(s) PO TID PRN for gas and cramping 09/17/2010 10/21/2010 Inactive Gabapentin 800 mg Tab RxNorm: 587485 1 Tablet(s) PO QD 09/16/2010 Inactive ProAir HFA 90 mcg/Actuation Aerosol Inhaler RxNorm: 050779 2 Puff(s) INH Q4H prn shortness of breath 09/15/2010 12/13/2010 Inactive gabapentin 800 mg Tab RxNorm: 192200 1 Tablet(s) PO QD 09/15/2010 Inactive Prevacid 30 mg Cap RxNorm: 243683 1 Capsule(s) PO QD 09/15/201004/12 Inactive loratadine 10 mg Tab RxNorm: 3446279 1 Tablet(s) PO QD 09/15/2010 Inactive Premarin 0.9 mg Tab RxNorm: 396103 1 Tablet(s) PO QD 09/15/201004/12 Inactive Synthroid 112 mcg Tab RxNorm: 767065 1 Tablet(s) PO QD 09/15/2010 Inactive metformin ER 500 mg 24 hr Tab RxNorm: 645606 1 Tablet(s) PO QD 08/2304/12/2011 Inactive Symbicort 160 mcg-4.5 mcg/Actuation Inhalation HFA Aer osol Inhaler RxNorm: 5573106 2 Puff(s) INH BID 09/15/2010 04/12/2011 Inactive diazepam 10 mg Tab RxNorm: 714687 1 Tablet(s) PO BID and PRN 200910/13/2010 Inactive Phentermine 37.5 mg Cap RxNorm: 639806 1 Capsule(s) PO QD 09/02/2010 11/02/2011 Inactive ProAir HFA 90 mcg/Actuation Aerosol Inhaler RxNorm: 401158 2 Puff(s) INH Q4H prn shortness of breath 08/07/2010 No Stop Date Active Premarin 0.9 mg Tab RxNorm: 201009 1 Tablet(s) PO QD 08/07/201009/14 Inactive Loratadine 10 mg Tab RxNorm: 0877683 1 Tablet(s) PO QD 08/07/2010 Inactive Lactulose 10 gram/15 mL Oral Soln RxNorm: 084309 1 Unit Dose PO QD 08/07/2010 02/12/2019 Inactive Zofran 4 mg Tab RxNorm: 010787 1 Tablet(s) PO Q4H prn nausea 2009 No Stop Date Active Gabapentin 800 mg Tab RxNorm: 530530 1 Tablet(s) PO QD 08/07/2010 Inactive Synthroid 112 mcg Tab RxNorm: 077801 1 Tablet(s) PO QD 08/07/2010 Inactive Metformin ER 500 mg 24 hr Tab RxNorm: 200540 1 Tablet(s) PO QD 07/2309/14/2010 Inactive Vitamin D 1,000 unit Tab RxNorm: 735217 1 Tablet(s) PO TID 08/07/20 02/12/2019 Inactive Symbicort 160 mcg-4.5 mcg/Actuation Inhalation HFA Aer osol Inhaler RxNorm: 1591404 2 Puff(s) INH BID 08/07/2010 09/14/2010 Inactive Prevacid 30 mg Cap RxNorm: 705176 1 Capsule(s) PO QD 08/07/201009/14 Inactive Metformin ER 500 mg 24 hr Tab RxNorm: 243259 1 Tablet(s) PO QD 06/2308/06/2010 Inactive Vitamin D 1,000 unit Tab RxNorm: 803085 1 Tablet(s) PO TID 07/14/20 10 08/06/2010 Inactive Synthroid 112 mcg Tab RxNorm: 956373 1 Tablet(s) PO QD 07/14/2010 Inactive Lactulose 10 gram/15 mL Oral Soln RxNorm: 298923 1 Unit Dose PO QD 07/14/2010 08/06/2010 Inactive Levaquin 500 mg Tab RxNorm: 702564 1 Tablet(s) PO QD 07/14/201007/27 Inactive Premarin 0.9 mg Tab RxNorm: 049206 1 Tablet(s) PO QD 07/14/201008/06 Inactive ProAir HFA 90 mcg/Actuation Aerosol Inhaler RxNorm: 397437 2 Puff(s) INH Q4H prn shortness of breath 07/14/2010 No Stop Date Active Prevacid 30 mg Cap RxNorm: 260358 1 Capsule(s) PO QD 07/14/201008/06 Inactive Zofran 4 mg Tab RxNorm: 666273 1 Tablet(s) PO Q4H prn nausea 2009 No Stop Date Active Symbicort 160 mcg-4.5 mcg/Actuation Inhalation HFA Aer osol Inhaler RxNorm: 4192484 2 Puff(s) INH BID 07/14/2010 08/06/2010 Inactive Loratadine 10 mg Tab RxNorm: 4916272 1 Tablet(s) PO QD 07/14/2010 Inactive Gabapentin 800 mg Tab RxNorm: 748481 1 Tablet(s) PO QD 07/14/2010 Inactive Metformin ER 500 mg 24 hr Tab RxNorm: 696831 1 Tablet(s) PO 010 07/13/2010 Inactive Diazepam 10 mg Tab RxNorm: 468887 1 Tablet(s) PO BID and PRN 200909/06/2010 Inactive Premarin 0.9 mg Tab RxNorm: 992357 1 Tablet(s) PO QD 06/09/201007/13 Inactive Zofran 4 mg Tab RxNorm: 795660 1 Tablet(s) PO Q4H prn nausea 2009 No Stop Date Active ProAir HFA 90 mcg/Actuation Aerosol Inhaler RxNorm: 147792 2 Puff(s) INH Q4H prn shortness of breath 06/09/2010 No Stop Date Active Gabapentin 800 mg Tab RxNorm: 036567 1 Tablet(s) PO QD 06/09/2010 Inactive Loratadine 10 mg Tab RxNorm: 3614315 1 Tablet(s) PO QD 06/09/2010 Inactive Lactulose 10 gram/15 mL Oral Soln RxNorm: 743129 1 Unit Dose PO QD 06/09/2010 07/13/2010 Inactive Prevacid 30 mg Cap RxNorm: 553784 1 Capsule(s) PO QD 06/09/201007/13 Inactive Synthroid 112 mcg Tab RxNorm: 959494 1 Tablet(s) PO QD 06/09/2010 Inactive Symbicort 160 mcg-4.5 mcg/Actuation Inhalation HFA Aer osol Inhaler RxNorm: 7133454 2 Puff(s) INH BID 06/09/2010 07/13/2010 Inactive Omnicef 300 mg Cap RxNorm: 431256 2 Capsule(s) PO QD 05/07/201005/20 Inactive Metformin 500 mg Tab RxNorm: 175690 1 Tablet(s) PO QD 05/06/201005/22 Inactive ProAir HFA 90 mcg/Actuation Aerosol Inhaler RxNorm: 265162 2 Puff(s) INH Q4H prn shortness of breath 05/06/2010 No Stop Date Active lactulose 10 gram/15 mL Oral Soln RxNorm: 446350 1 Unit Dose PO QD 05/06/2010 06/10/2011 Inactive Loratadine 10 mg Tab RxNorm: 3653209 1 Tablet(s) PO QD 05/06/2010 Inactive Synthroid 112 mcg Tab RxNorm: 744750 1 Tablet(s) PO QD 05/06/2010 Inactive Symbicort 160 mcg-4.5 mcg/Actuation Inhalation HFA Aer osol Inhaler RxNorm: 6085386 2 Puff(s) INH BID 05/06/2010 06/08/2010 Inactive Gabapentin 800 mg Tab RxNorm: 086919 1 Tablet(s) PO QD 05/06/2010 Inactive 16.2 mg-0.1037 mg-0.0194 mg Tab RxNorm: 2654044 2 Tablet(s) PO TID PRN for gas and cramping 05/06/2010 05/12/2010 Inactive Zofran 4 mg Tab RxNorm: 090119 1 Tablet(s) PO Q4H prn nausea 200904/13/2010 Inactive MS Contin 60 mg Tab RxNorm: 887787 3 Tablet(s) PO BID 04/09/201004/22 Inactive Soma 350 mg Tab RxNorm: 871783 2 Tablet(s) PO TID 04/09/2010 05/08/20 10 Inactive Symbicort 160 mcg-4.5 mcg/Actuation Inhalation HFA Aer osol Inhaler RxNorm: 9892544 2 Puff(s) INH BID 04/08/2010 05/05/2010 Inactive Doxycycline 100 mg Cap RxNorm: 9550995 1 Capsule(s) PO BID 04/08/20 10 04/17/2010 Inactive Triamterene-Hydrochlorothiazide 37.5 mg-25 mg Cap RxNorm: 19 8316 1 Capsule(s) PO QAM 04/08/2010 09/04/2010 Inactive fluoxetine 40 mg Cap RxNorm: 907326 1 Capsule(s) PO QAM 04/08/2010 Inactive Morphine SR 120 mg multiphase 24 hr Cap RxNorm: 614852 1 Capsul e(s) PO 03/11/2010 04/07/2010 Inactive Endocet 10 mg-325 mg Tab RxNorm: 0493082 1-2 Tablet(s) PO Q4H OH N PAIN 03/11/2010 04/09/2010 Inactive Savella 100 mg Tab RxNorm: 978160 1 Tablet(s) PO BID 03/10/201004/09 Inactive Soma 350 mg Tab RxNorm: 319647 1 Tablet(s) PO TID prn spasm 010 04/09/2010 Inactive Savella 100 mg Tab RxNorm: 837171 1 Tablet(s) PO BID 02/03/201004/09 Inactive Aspirin 81 mg Tab RxNorm: 850172 1 Tablet(s) PO QD No Start Date Active Zyrtec 10 mg Tab RxNorm: 1440308 1 Tablet(s) PO QD No Start Date Active One Touch Ultra Test Strips RxNorm: Misc test at least t wice daily. No Start Date Active coenzyme Q10 200 mg capsule RxNorm: 422104 1 Capsule(s) PO QD No Star t Date Active One Touch Ultra Test Strips RxNorm: InVt BID Zainab t blood sugar at least twice daily. No Start Date 11/10/2010 Inactive Gabapentin 800 mg Tab RxNorm: 093625 1 Tablet(s) PO QD No Start Date 05/05/2010 Inactive Abilify 5 mg tablet RxNorm: 846268 1 Tablet(s) PO QD No Start Date Inactive Chantix 1 mg Tab RxNorm: 992618 1 Tablet(s) PO BID No Start Date 10/22 Inactive Ozempic 0.25 mg or 0.5 mg (2 mg/1.5 mL) subcutaneous p en injector RxNorm: 4975082 .25 Milligram(s) SQ QW No Start Date 07/04/2019 Inactive lancets 28 gauge RxNorm: Miscellaneous As needed for blo od glucose sticks No Start Date 08/23/2013 Inactive potassium chloride ER 20 mEq tablet,extended release RxNorm: 625080 2 Tablet(s) PO QD No Start Date 09/26/2018 Inactive Ventolin HFA 90 mcg/actuation Aerosol Inhaler RxNorm: 753123 2 Puff(s) INH Q4H prn No Start Date 01/17/2012 Inactive potassium chloride ER 20 mEq tablet,extended release RxNorm: 794883 2 Tablet(s) PO QD No Start Date 10/19/2018 Inactive Januvia 100 mg tablet RxNorm: 884352 1 Tablet(s) PO QD No Start Date 09/10/2015 Inactive Medrol (Aníbal) 4 mg Tabs in a Dose Pack RxNorm: 741168 Tablet(s) PO N o Start Date 08/09/2011 Inactive as directed Zithromax Z-Aníbal 250 mg Tab RxNorm: 129720 Tablet(s) PO No Start Date 01/25/2012 Inactive as directed vitamin B6-vitamin E-magnesium tablet RxNorm: 1 Tablet(s ) PO QHS with INH No Start Date 03/30/2018 Inactive prednisone 20 mg Tab RxNorm: 505433 1 Tablet(s) PO TID for 1wk then 1 po BID for 1wk No Start Date 01/25/2012 Inactive furosemide 40 mg tablet RxNorm: 604470 1 Tablet(s) PO QAM No Start Date 10/09/2018 Inactive Vitamin D3 1000 units Capsule RxNorm: 1 Capsule(s) PO TID No S tart Date 03/19/2015 Inactive Zofran 4 mg Tab RxNorm: 878499 1 Tablet(s) PO Q4H prn nausea No Sta rt Date 04/13/2010 Inactive Premarin 0.625 mg/g Vaginal Cream RxNorm: 262197 1 Gram (s) VAG QHS 3 times a week No Start Date 09/22/2017 Inactive oxycodone 10 mg tablet RxNorm: 4418672 1-2 Tablet(s) PO QID as n eeded for pain No Start Date 11/04/2015 Inactive Nicoderm CQ 21 mg/24 hr daily Patch RxNorm: 192448 1 Applicatio n TD QD No Start Date 08/05/2015 Inactive Topamax 50 mg tablet RxNorm: 689286 1/2 Tablet(s) PO QH S for 1wk then 1 po q HS for 1wk then 2 po q HS No Start Date 06/27/2012 Inactive Chantix Starting Month Aníbal 0.5 mg (11)-1 mg (3x14) Tab s in a Dose Pack RxNorm: 234756 Tablet(s) PO as directed No Start Date 03/01/2011 Inactive Trulicity 0.75 mg/0.5 mL subcutaneous pen injector RxNorm: 1 462675 Milliliter(s) SQ No Start Date 07/04/2019 Inactive Medrol (Aníbal) 4 mg Tabs in a Dose Pack RxNorm: 994475 Tablet(s) PO N o Start Date 01/25/2012 Inactive as directed Duragesic 100 mcg/hr Transderm Patch RxNorm: 055713 2 A pplication TD Q48H for pain No Start Date 09/05/2013 Inactive Premarin 0.9 mg Tab RxNorm: 765353 1 Tablet(s) PO QD No Start Date Inactive Zithromax Z-Aníbal 250 mg Tab RxNorm: 014170 Tablet(s) PO as direc chinmay No Start Date 01/25/2012 Inactive ondansetron 8 mg disintegrating tablet RxNorm: 994779 1 Tablet(s) PO Q6H as needed No Start Date 10/10/2018 Inactive oxycodone 15 mg tablet RxNorm: 0189621 1 Tablet(s) PO QID as nee ded for pain No Start Date 03/05/2019 Inactive ProAir HFA 90 mcg/Actuation Aerosol Inhaler RxNorm: 134129 2 Puff(s) INH Q4H prn for wheezing or shortness of breath No Start Date 12/21/2011 Inactive pravastatin 40 mg tablet RxNorm: 822363 1/2 Tablet(s) PO QOD No Sta rt Date 04/09/2015 Inactive ipratropium-albuterol 0.5 mg-3 mg(2.5 mg base)/3 mL ne bulization soln RxNorm: 9860864 1 Unit Dose INH Q4H as needed No Start Date 09/09/2016 Inactive furosemide 40 mg tablet RxNorm: 304061 1 Tablet(s) PO QAM as ne eded No Start Date 09/24/2019 Inactive Vitamin D2 oral RxNorm: 4018 oral No Start Date 03/18/2015 Inacti ve pravastatin 40 mg tablet RxNorm: 735647 1/2 Tablet(s) PO QD No Star t Date 04/09/2015 Inactive ondansetron HCl 4 mg tablet RxNorm: 062707 1 Tablet(s) PO Q4H as needed for nausea and vomiting No Start Date 04/07/2016 Inactive furosemide 40 mg tablet RxNorm: 971122 2 Tablet(s) PO QAM No Start Date 09/26/2018 Inactive gabapentin 800 mg tablet RxNorm: 883273 1/2 Tablet(s) PO BID No Sta rt Date 06/21/2017 Inactive gabapentin 800 mg tablet RxNorm: 492790 1/2 Tablet(s) PO BID No Sta rt Date 07/05/2017 Inactive ProAir HFA 90 mcg/Actuation Aerosol Inhaler RxNorm: 358415 2 Puff(s) INH Q4H prn shortness of breath No Start Date 05/05/2010 Inactive scopolamine 1 mg over 3 days transdermal patch RxNorm: 83951 2 1 Application TD behind ear. Take off after three days No Start Date 10/10/2018 Inactive Metformin 500 mg Tab RxNorm: 196406 1 Tablet(s) PO QD No Start Date 0 05/05/2010 Inactive MS Contin 200 mg Tab RxNorm: 728387 1 Tablet(s) PO BID No Start Date 08/20/2011 Inactive Belladonna-Phenobarbital 48 mg tablet,extended release RxNor m: 2 Tablet(s) PO TID No Start Date 06/04/2016 Inactive Synthroid 112 mcg Tab RxNorm: 263983 1 Tablet(s) PO QD No Start Date 05/05/2010 Inactive Zegerid 40 mg-1.1 gram Cap RxNorm: 157016 1 Capsule(s) PO QD No Sta rt Date 01/25/2012 Inactive Premarin 0.625 mg/g Vaginal Cream RxNorm: 779578 VAG In sert 1gm vaginally at bedtime 3 times weekly No Start Date 01/17/2011 Inactive potassium chloride ER 20 mEq tablet,extended release RxNorm: 849658 1 Tablet(s) PO QD No Start Date 04/24/2019 Inactive methocarbamol 750 mg tablet RxNorm: 663851 2 Tablet(s) PO TID as needed for muscle spasm No Start Date 07/08/2014 Inactive Biaxin XL Aníbal 500 mg 24 hr Tab RxNorm: 814772 Tablet(s) PO as d irected No Start Date 04/24/2013 Inactive Vitamin D3 1,000 unit tablet RxNorm: 626791 3 Tablet(s) PO QD No St art Date 06/01/2017 Inactive Morphine SR 120 mg multiphase 24 hr Cap RxNorm: 247293 1 Capsul e(s) PO BID No Start Date 04/09/2010 Inactive Silvadene 1 % topical cream RxNorm: 692330 1 Application TOP BI D to burn area No Start Date 01/31/2017 Inactive Prednisone 20 mg Tab RxNorm: 744304 1 Tablet(s) PO TID for 3days then BID for 4days No Start Date 01/25/2012 Inactive gabapentin 600 mg tablet RxNorm: 461566 1 Tablet(s) PO BID No Start Date 01/21/2015 Inactive topiramate 50 mg tablet RxNorm: 452889 1 Tablet(s) PO QHS No Start Date 03/30/2018 Inactive Januvia 100 mg tablet RxNorm: 886972 1/2 Tablet(s) PO QD No Start D ate 12/25/2015 Inactive Diazepam 10 mg Tab RxNorm: 282023 1 Tablet(s) PO BID and PRN No Sta rt Date 06/08/2010 Inactive Medication Administered No Medication Administered data Immunizations Vaccine Codes Date Status Influenza CVX: 141 09/28/2012 Pneumovax Unknown 09/28/2012 Influenza (Adult) CVX: 141 09/02/2010 Results No Results data Procedures Procedure Codes Date THER/PROPH/DIAG INJ SC/IM CPT-4: 15282 07/10/2019 METHYLPREDNISOLONE INJECTION CPT-4: J2930 07/10/2019 URINALYSIS NONAUTO W/O SCOPE CPT-4: 66565 09/06/2018 URINE CULTURE/ COLONY COUNT CPT-4: 64165 09/06/2018 DRAIN/INJECT JOINT/BURSA CPT-4: 94716 04/29/2017 TRIAMCINOLONE ACET INJ NOS CPT-4: J3301 04/29/2017 DEXAMETHASONE SODIUM PHOS CPT-4: J1100 04/29/2017 INFLUENZA ASSAY W/OPTIC CPT-4: 75524 12/01/2016 RESPIRATORY CULTURE & STAIN CPT-4: 00793 07/09/2016 TB INTRADERMAL TEST CPT-4: 04442 04/21/2016 DRAIN/INJECT JOINT/BURSA CPT-4: 72157 11/07/2013 METHYLPREDNISOLONE 40 MG INJ CPT-4: J1030 11/07/2013 TRIAMCINOLONE ACET INJ NOS CPT-4: J3301 11/07/2013 DRAIN/INJECT JOINT/BURSA CPT-4: 10042 08/08/2013 METHYLPREDNISOLONE 40 MG INJ CPT-4: J1030 08/08/2013 TRIAMCINOLONE ACET INJ NOS CPT-4: J3301 08/08/2013 FLU VACCINE 3 YRS & > IM UP 64 CPT-4: 17177 2 PNEUMOCOCCAL VACC 23 ADITYA IM CPT-4: 30025 09/28/2012 IMMUNIZATION ADMIN CPT-4: 55445 09/28/2012 IMMUNIZATION ADMIN EACH ADD CPT-4: 47870 09/28/2012 FLU VACCINE 3 YRS & > IM UP 64 CPT-4: 83291 0 IMMUNIZATION ADMIN CPT-4: 23745 09/02/2010 METHYLPREDNISOLONE INJECTION CPT-4: J2930 05/07/2010 THER/PROPH/DIAG INJ SC/IM CPT-4: 62311 05/07/2010 Vital Signs Date Vital 11/29/2019 Blood [...] 1: 122/78 Code: 8480-6 BMI: 29.5 Code: 17712-9 Heart Rate 1: 76 bpm Height: 5'4" Respiratory Rate: 20 bpm SpO2: 96% Tempera ture: 37.0 (C) / 98.6 (F) Weight: 172 lbs 01/25/2019 Blood Pressure 1: 132/80 Code: 8480-6 BMI: 29.7 Code: 91653-2 Heart Rate 1: 84 bpm Height: 5'4" Respiratory Rate: 22 bpm SpO2: 98% Tempera ture: 36.9 (C) / 98.4 (F) Weight: 173 lbs 01/03/2019 Blood Pressure 1: 116/70 Code: 8480-6 BMI: 29.5 Code: 78890-7 Heart Rate 1: 92 bpm Height: 5'4" Respiratory Rate: 24 bpm SpO2: 98% Tempera ture: 37.2 (C) / 98.9 (F) Weight: 172 lbs 11/21/2018 Blood Pressure 1: 146/82 Code: 8480-6 BMI: 28.2 Code: 20049-4 Heart Rate 1: 88 bpm Height: 5'4" Respiratory Rate: 22 bpm SpO2: 97% Tempera ture: 36.9 (C) / 98.4 (F) Weight: 164 lbs 10/27/2018 Blood Pressure 1: 122/70 Code: 8480-6 BMI: 27.6 Code: 24494-3 Heart Rate 1: 88 bpm Height: 5'4" Respiratory Rate: 20 bpm SpO2: 96% Tempera ture: 36.8 (C) / 98.3 (F) Weight: 161 lbs 10/18/2018 Blood Pressure 1: 126/70 Code: 8480-6 BMI: 28.3 Code: 28800-8 Heart Rate 1: 76 bpm Height: 5'4" Respiratory Rate: 20 bpm SpO2: 95% Tempera ture: 37.0 (C) / 98.6 (F) Weight: 165 lbs 09/27/2018 Blood Pressure 1: 124/78 Code: 8480-6 BMI: 27.1 Code: 77438-5 Heart Rate 1: 88 bpm Height: 5'4" Respiratory Rate: 20 bpm SpO2: 98% Tempera ture: 36.4 (C) / 97.6 (F) Weight: 158 lbs 09/14/2018 Blood Pressure 1: 140/72 Code: 8480-6 BMI: 26.1 Code: 51025-7 Heart Rate 1: 100 bpm Height: 5'4" Respiratory Rate: 20 bpm SpO2: 97% Tempera ture: 36.9 (C) / 98.4 (F) Weight: 152 lbs 09/06/2018 Blood Pressure 1: 156/82 Code: 8480-6 BMI: 26.3 Code: 13517-5 Heart Rate 1: 100 bpm Height: 5'4" Respiratory Rate: 28 bpm SpO2: 95% Tempera ture: 37.2 (C) / 98.9 (F) Weight: 153 lbs 08/16/2018 Blood Pressure 1: 130/78 Code: 8480-6 Heart Rate 1: 87 bpm Respiratory Rate: 24 bpm SpO2: 94% Temperature: 36.9 (C) / 98.4 (F) We ight: 147 lbs 8 oz 07/07/2018 Blood Pressure 1: 116/78 Code: 8480-6 BMI: 22.7 Code: 77937-9 Heart Rate 1: 88 bpm Height: 5'4" Respiratory Rate: 22 bpm SpO2: 98% Tempera ture: 36.5 (C) / 97.7 (F) Weight: 132 lbs 05/31/2018 Blood Pressure 1: 128/78 Code: 8480-6 BMI: 22.3 Code: 84743-3 Heart Rate 1: 92 bpm Height: 5'4" Respiratory Rate: 26 bpm SpO2: 94% Tempera ture: 36.7 (C) / 98.1 (F) Weight: 130 lbs 03/31/2018 Blood Pressure 1: 136/78 Code: 8480-6 BMI: 21.5 Code: 05429-3 Heart Rate 1: 76 bpm Height: 5'4" Respiratory Rate: 24 bpm SpO2: 95% Tempera ture: 36.8 (C) / 98.3 (F) Weight: 125 lbs 01/26/2018 Blood Pressure 1: 142/64 Code: 8480-6 BMI: 20.6 Code: 56746-5 Heart Rate 1: 90 bpm Height: 5'4" Respiratory Rate: 24 bpm SpO2: 92% Tempera ture: 36.3 (C) / 97.3 (F) Weight: 120 lbs 10/26/2017 Blood Pressure 1: 124/70 Code: 8480-6 BMI: 20.3 Code: 43673-7 Heart Rate 1: 76 bpm Height: 5'4" Respiratory Rate: 22 bpm SpO2: 94% Tempera ture: 36.7 (C) / 98.1 (F) Weight: 118 lbs 09/23/2017 Blood Pressure 1: 106/70 Code: 8480-6 BMI: 19.2 Code: 88775-5 Heart Rate 1: 76 bpm Height: 5'4" Respiratory Rate: 20 bpm SpO2: 94% Tempera ture: 36.8 (C) / 98.3 (F) Weight: 112 lbs 08/12/2017 Blood Pressure 1: 116/68 Code: 8480-6 BMI: 20.1 Code: 14746-9 Heart Rate 1: 80 bpm Height: 5'4" Respiratory Rate: 22 bpm SpO2: 95% Tempera ture: 36.8 (C) / 98.2 (F) Weight: 117 lbs 07/06/2017 Blood Pressure 1: 136/78 Code: 8480-6 BMI: 20.6 Code: 39799-1 Heart Rate 1: 76 bpm Height: 5'4" Respiratory Rate: 24 bpm SpO2: 96% Tempera ture: 36.8 (C) / 98.2 (F) Weight: 120 lbs 06/02/2017 Blood Pressure 1: 112/70 Code: 8480-6 Heart Rate 1: 92 bpm Height: 5'4" Respiratory Rate: 24 bpm SpO2: 95% Temperature: 37.0 (C) / 98.6 (F) Weight: 04/29/2017 Blood Pressure 1: 94/52 Code: 8480-6 BMI: 19.6 C ode: 24112-4 Heart Rate 1: 84 bpm Height: 5'4" [...] 92/58 Code: 8480-6 BMI: 19.2 C ode: 57218-7 Heart Rate 1: 84 bpm Height: 5'4" Respiratory Rate: 26 bpm SpO2: 95% Tempera ture: 36.7 (C) / 98.0 (F) Weight: 112 lbs 12/01/2016 Blood Pressure 1: 114/70 Code: 8480-6 BMI: 19.2 Code: 92055-0 Heart Rate 1: 96 bpm Height: 5'4" Respiratory Rate: 28 bpm SpO2: 93% Tempera ture: 38.3 (C) / 101.0 (F) Weight: 112 lbs 10/27/2016 Blood Pressure 1: 126/66 Code: 8480-6 BMI: 19.6 Code: 52823-8 Heart Rate 1: 92 bpm Height: 5'4" Respiratory Rate: 28 bpm SpO2: 90% Tempera ture: 36.8 (C) / 98.3 (F) Weight: 114 lbs 09/09/2016 Blood Pressure 1: 126/74 Code: 8480-6 Heart Rate 1: 104 bpm Height: 5'4" Respiratory Rate: 32 bpm SpO2: 88% Temperature: 37 .2 (C) / 99.0 (F) 08/26/2016 Blood Pressure 1: 134/82 Code: 8480-6 BMI: 22.0 Code: 15142-9 Heart Rate 1: 84 bpm Height: 5'4" Respiratory Rate: 24 bpm SpO2: 94% Tempera ture: 36.8 (C) / 98.3 (F) Weight: 128 lbs 05/21/2016 Blood Pressure 1: 142/80 Code: 8480-6 BMI: 21.6 Code: 06234-3 Heart Rate 1: 104 bpm Height: 5'4" Respiratory Rate: 22 bpm SpO2: 93% Tempera ture: 36.0 (C) / 96.8 (F) Weight: 126 lbs 03/25/2016 Blood Pressure 1: 126/62 Code: 8480-6 Heart Rate 1: 88 bpm Respiratory Rate: 20 bpm SpO2: 92% Temperature: 36.8 (C) / 98.3 (F) We ight: 130 lbs 01/23/2016 Blood Pressure 1: 146/82 Code: 8480-6 BMI: 24.1 Code: 96152-6 Heart Rate 1: 92 bpm Height: 5'3" Respiratory Rate: 22 bpm Temperature: 37 .1 (C) / 98.8 (F) Weight: 136 lbs 12/26/2015 Blood Pressure 1: 142/78 Code: 8480-6 BMI: 24.6 Code: 45138-2 Heart Rate 1: 78 bpm Height: 5'3" Respiratory Rate: 20 bpm Temperature: 36 .7 (C) / 98.1 (F) Weight: 139 lbs 12/03/2015 Blood Pressure 1: 126/60 Code: 8480-6 BMI: 24.6 Code: 82972-3 Heart Rate 1: 100 bpm Height: 5'3" Respiratory Rate: 28 bpm Temperature: 37 .6 (C) / 99.6 (F) Weight: 139 lbs 09/10/2015 Blood Pressure 1: 124/64 Code: 8480-6 BMI: 23.7 Code: 47752-3 Heart Rate 1: 88 bpm Height: 5'3" Respiratory Rate: 24 bpm SpO2: 95% Tempera ture: 36.4 (C) / 97.6 (F) Weight: 134 lbs 08/06/2015 Blood Pressure 1: 114/76 Code: 8480-6 BMI: 23.2 Code: 28794-2 Heart Rate 1: 88 bpm Height: 5'3" Respiratory Rate: 22 bpm Temperature: 36 .6 (C) / 97.9 (F) Weight: 131 lbs 07/18/2015 Blood Pressure 1: 144/78 Code: 8480-6 BMI: 23.7 Code: 46616-6 Heart Rate 1: 84 bpm Height: 5'3" Respiratory Rate: 20 bpm Temperature: 37 .2 (C) / 99.0 (F) Weight: 134 lbs 04/10/2015 Blood Pressure 1: 110/64 Code: 8480-6 Heart Rate 1: 80 bpm Height: Respiratory Rate: 20 bpm Temperature: 37.1 (C) / 98.8 (F) Weight: 03/05/2015 Blood Pressure 1: 136/80 Code: 8480-6 BMI: 23.9 Code: 57949-6 Heart Rate 1: 76 bpm Height: 5'3" Respiratory Rate: 24 bpm Temperature: 37 .0 (C) / 98.6 (F) Weight: 135 lbs 01/30/2015 Blood Pressure 1: 142/80 Code: 8480-6 BMI: 23.0 Code: 85084-7 Heart Rate 1: 96 bpm Height: 5'3" Respiratory Rate: 22 bpm Temperature: 36 .2 (C) / 97.2 (F) Weight: 130 lbs 01/02/2015 Blood Pressure 1: 124/70 Code: 8480-6 BMI: 23.4 Code: 54851-1 Heart Rate 1: 84 bpm Height: 5'3" Respiratory Rate: 24 bpm SpO2: 95% Tempera ture: 36.9 (C) / 98.5 (F) Weight: 132 lbs 10/03/2014 Blood Pressure 1: 106/68 Code: 8480-6 BMI: 22.5 Code: 09678-3 Heart Rate 1: 88 bpm Height: 5'3" Respiratory Rate: 24 bpm Temperature: 37 .0 (C) / 98.6 (F) Weight: 127 lbs 08/27/2014 Blood Pressure 1: 124/68 Code: 8480-6 BMI: 21.1 Code: 26374-7 Heart Rate 1: 88 bpm Height: 5'3" [...] 1: 120/70 Code: 8480-6 BMI: 19.2 Code: 81491-6 Heart Rate 1: 70 bpm Height: 5'4" Respiratory Rate: 20 bpm Temperature: 36 .9 (C) / 98.4 (F) Weight: 112 lbs 06/28/2013 Blood Pressure 1: 102/68 Code: 8480-6 BMI: 19.6 Code: 63862-7 Heart Rate 1: 76 bpm Height: 5'4" Respiratory Rate: 20 bpm Temperature: 36 .8 (C) / 98.2 (F) Weight: 114 lbs 05/31/2013 Blood Pressure 1: 106/70 Code: 8480-6 BMI: 18.9 Code: 04213-5 Heart Rate 1: 100 bpm Height: 5'4" Respiratory Rate: 20 bpm Temperature: 36 .4 (C) / 97.6 (F) Weight: 110 lbs 05/03/2013 Blood Pressure 1: 126/70 Code: 8480-6 BMI: 19.1 Code: 56452-0 Heart Rate 1: 88 bpm Height: 5'4" Respiratory Rate: 20 bpm Temperature: 37 .1 (C) / 98.8 (F) Weight: 111 lbs 04/25/2013 Blood Pressure 1: 114/68 Code: 8480-6 BMI: 19.4 Code: 00729-1 Heart Rate 1: 92 bpm Height: 5'4" Respiratory Rate: 24 bpm SpO2: 96% Tempera ture: 37.7 (C) / 99.8 (F) Weight: 113 lbs 03/08/2013 Blood Pressure 1: 94/68 Code: 8480-6 BMI: 21.3 C ode: 68172-0 Heart Rate 1: 88 bpm Height: 5'4" Respiratory Rate: 24 bpm Temperature: 37 .0 (C) / 98.6 (F) Weight: 124 lbs 02/07/2013 Blood Pressure 1: 106/64 Code: 8480-6 BMI: 21.8 Code: 42232-4 Heart Rate 1: 84 bpm Height: 5'4" Respiratory Rate: 22 bpm Temperature: 36 .8 (C) / 98.2 (F) Weight: 127 lbs 01/10/2013 Blood Pressure 1: 122/68 Code: 8480-6 BMI: 21.6 Code: 30777-8 Heart Rate 1: 94 bpm Height: 5'4" SpO2: 94% Temperature: 36.7 (C) / 98.1 (F) Weight: 126 lbs 09/28/2012 Blood Pressure 1: 124/78 Code: 8480-6 BMI: 24.9 Code: 75786-0 Heart Rate 1: 92 bpm Height: 5'4" Respiratory Rate: 20 bpm Temperature: 36 .7 (C) / 98.1 (F) Weight: 145 lbs 06/28/2012 Blood Pressure 1: 134/80 Code: 8480-6 BMI: 24.9 Code: 34622-1 Heart Rate 1: 76 bpm Height: 5'4" Respiratory Rate: 20 bpm Temperature: 36 .8 (C) / 98.2 (F) Weight: 145 lbs 05/03/2012 Blood Pressure 1: 108/62 Code: 8480-6 BMI: 25.6 Code: 99767-8 Heart Rate 1: 88 bpm Height: 5'4" Temperature: 36.2 (C) / 97.2 (F) Weight: 149 lbs 03/01/2012 Blood Pressure 1: 124/66 Code: 8480-6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 12/17/2010 Appointment: Vika Rneteria: [address] [place], [place] [phone] [place] FOLLOW UP 11/06/2010 Visit Plan: Start PT Use SVNs every 4hrs Smoking Cessation Change MS Contin to 200mg q 12hrs 2010 Appointment: Vika Renteria WPtel: [address] [place], [place] [phone] FOLLOW UP 2010 Patient Education: Patient Medication Summary Completed 2010 Visit Plan: Prednisone taper for pain an d lungs 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 Increase fluoxetine to 60mg QD for acute stress reaction 10/02/2010 Appointment: Vika Renteria WPtel: [address] [place] [address] FOLLOW UP 10/02/2010 Patient Education: Patient Medication Summary Completed 10/02/2010 Visit Plan: Check CT Head, Cervical, Tho racic, and Lumbar Spine Cont current meds Bactrim for left toe 09/24/2010 Appointment: Vika Renteria WPtel: [address] [place] [address] CHECK UP 09/24/2010 Patient Education: Patient Medication Summary Completed 09/24/2010 Appointment: Vika Renteriatel: [address] [place], [place] [phone] FOLLOW UP 09/02/2010 Patient Education: Patient Medication Summary Completed 09/02/2010 Visit Plan: Return for 2nd epidural Obse rve right leg lesion Cont Symbicort and Spiriva 07/14/2010 Appointment: Vika Renteria WPtel: [address] [place], [place] [phone] [place] FOLLOW UP 07/14/2010 Patient Education: Patient Medication Summary Completed 07/14/2010 Appointment: Vika Renteria WPtel: [address] [place], [place] [phone] [place] FOLLOW UP 05/27/2010 Appointment: Vika Renterial: [phone] [id number] FOLLOW UP 05/14/2010 Visit Plan: SVN with Albuterol 0.083% Q4 hrs and Q2hrs prn. Restart Spiriva Smoking Cessation 05/07/2010 Appointment: Vika Renteria WPtel: [phone] [id number] FOLLOW UP 05/07/2010 Patient Education: Patient Medication Summary Completed 05/07/2010 Appointment: Vika Renteria WPtel: [phone] [facility] ACUTE ILLNESS 04/08/2010 Patient Education: Patient Medication Summary Completed 04/08/2010 Referral: Kyle Billings WPtel: [phone] [facility] [place] Referral Completed Referral: Jaylan Matute WPtel: [address] [facility] [address] [id number] [place] Referral Initiated Referral: Kyle Billings WPtel: [phone] [place] [address] [place] Referral Appointment Requested Instructions Comment . [...] Fwup pending CT results . Change MS Latasha to Duragesic Patch 10 0mcg q48hrs for pain with hydrocodone 10/325mg 1-2 po QID prn breakthrough pain . Discussed that some [place] Bees produc ts are petroleum free If [...]
--- OUTSIDE RECORDS SUMMARY | 2020-04-24 22:31 | XMS REPORT | CCD ---
Author Author Yana Renteria D.O. Organization [facility] Address [address] [place] [address] Phone Care Team Providers Care Electronic Publisher Name Role Phone Vika Renteria D.O., PP Unavailable CCM Unavailable Summary Purpose Interface Exchange Insurance Providers Payer name Policy type / Coverage type Covered constitution party ID Effective Begin Date Effective End Date [employer] [facility] Medicaid [id number] U nknown Family History Family History data not found Social History Social History Element Codes Description Effective Dates Marital status Unknown 06/28/[address]: [id number] Currently smokes tobacco 05/2013 Allergies, Adverse Reactions, [...] Start Date Stop Date Status Fill Instructions Symbicort 160 mcg-4.5 mcg/actuation HFA aerosol inhaler RxNo rm: 6548588 INHALE TWO PUFFS BY MOUTH TWICE A DAY 02/19/2020 No Stop Date Active Daliresp 500 mcg tablet RxNorm: 1267094 TAKE ONE TABLET BY MOUTH DAILY 02/19/2020 No Stop Date Active oxycodone 30 mg tablet RxNorm: 4799283 1 Tablet(s) Oral four times a day replaces MS Contin 02/13/2020 03/14/2020 Active prednisone 20 mg tablet RxNorm: 520588 1 Tablet(s) Oral two yumi es a day 02/13/2020 02/20/2020 Inactive levothyroxine 25 mcg tablet RxNorm: 914790 TAKE ONE TAB LET BY MOUTH EVERY MORNING 02/09/2020 No Stop Date Active MS Contin 200 mg tablet,extended release RxNorm: 660701 1 Tablet(s) Oral two times a day 02/01/2020 03/01/2020 Active cyclobenzaprine 10 mg tablet RxNorm: 860817 TAKE ONE TA BLET BY MOUTH THREE TIMES A DAY NEEDED 01/31/2020 No Stop Date Active Premarin 0.45 mg tablet RxNorm: 259261 TAKE ONE TABLET BY MOUTH DAILY 01/31/2020 No Stop Date Active metformin 500 mg tablet RxNorm: 339165 1 Tablet(s) Oral QD 01/31/20 20 04/29/2020 Active gabapentin 300 mg capsule RxNorm: 042624 TAKE ONE CAPSULE BY [facility] TWICE A DAY 01/16/2020 No Stop Date Active potassium chloride ER 20 mEq tablet,extended release RxNorm: 239061 TAKE ONE TABLET BY MOUTH DAILY 01/08/2020 07/05/2020 Active ProAir HFA 90 mcg/actuation aerosol inhaler RxNorm: 680642 INHALE ONE PUFF BY MOUTH EVERY 4 HOURS FOR WHEEZING OR FOR SHORTNESS OF BREATH 01/04/2020 No Stop Date Active metformin 500 mg tablet RxNorm: 859414 1 Tablet(s) Oral QD 01/04/20 20 01/30/2020 Inactive MS Contin 200 mg tablet,extended release RxNorm: 226704 1 Tablet(s) Oral two times a day 01/02/2020 01/31/2020 Inactive Pulmicort 1 mg/2 mL suspension for nebulization RxNorm: 6168 19 USE ONE VIAL VIA NEBULIZER BY MOUTH TWICE A DAY 12/21/2019 No Stop Date Active furosemide 40 mg tablet RxNorm: 420860 TAKE ONE TABLET BY MOUTH EVERY MORNING NEEDED 12/20/2019 No Stop Date Active levothyroxine 25 mcg tablet RxNorm: 794876 TAKE ONE TAB LET BY MOUTH EVERY MORNING 12/20/2019 02/08/2020 Inactive MS Contin 200 mg tablet,extended release RxNorm: 607912 1 Tablet(s) Oral two times a day 12/05/2019 01/01/2020 Inactive Medrol (Aníbal) 4 mg tablets in a dose pack RxNorm: 099827 6 Tablet(s) Oral QD --then as directed 11/30/2019 12/05/2019 Inactive MS Contin 200 mg tablet,extended release RxNorm: 999448 1 Tablet(s) Oral two times a day 11/29/2019 12/04/2019 Inactive cyclobenzaprine 10 mg tablet RxNorm: 169465 TAKE ONE TA BLET BY MOUTH THREE TIMES A DAY NEEDED 11/21/2019 01/30/2020 Inactive MS Contin 200 mg tablet,extended release RxNorm: 770620 1 Tablet(s) Oral two times a day replaces 100mg dose 11/03/2019 11/02/2019 Inactive MS Contin 200 mg tablet,extended release RxNorm: 244804 1 Tablet(s) Oral two times a day replaces 100mg dose 11/03/2019 11/29/2019 Inactive ferrous sulfate 325 mg (65 mg iron) tablet RxNorm: 465466 1 Tab let(s) Oral QD 10/30/2019 No Stop Date Active MS Contin 100 mg tablet,extended release RxNorm: 024971 1 Table t(s) Oral QD 10/30/2019 10/29/2019 Inactive MS Contin 100 mg tablet,extended release RxNorm: 335441 1 Table t(s) Oral QD 10/30/2019 11/02/2019 Inactive Relistor 150 mg tablet RxNorm: 1016820 TAKE THREE TABLETS BY [facility]ENOIT [facility] DAILY 10/25/2019 No Stop Date Active pantoprazole 40 mg tablet,delayed release RxNorm: 400512 1 Tabl et(s) Oral QD 10/25/2019 No Stop Date Active Minipress 2 mg capsule RxNorm: 850652 1 Capsule(s) Oral QAM and 3 at bedtime 10/25/2019 No Stop Date Active Lancets, Super Thin RxNorm: 1 Unit Dose Miscellaneous QD 9 11/27/2020 Active Cymbalta 60 mg capsule,delayed release RxNorm: 372163 1 Capsule (s) Oral QAM 10/25/2019 No Stop Date Active Cymbalta 30 mg capsule,delayed release RxNorm: 904380 1 Capsule (s) Oral QAM 10/25/2019 No Stop Date Active oxycodone 15 mg tablet RxNorm: 6309538 1 Tablet(s) Oral four times a day as needed for pain 10/25/2019 11/28/2019 Inactive metformin 500 mg tablet RxNorm: 371952 1 Tablet(s) Oral QD 10/25/20 19 01/03/2020 Inactive levothyroxine 25 mcg tablet RxNorm: 176606 1 Tablet(s) Oral QAM 02/201912/19/2019 Inactive levothyroxine 25 mcg tablet RxNorm: 798530 1 Tablet(s) Oral QAM 02/201910/24/2019 Inactive MS Contin 100 mg tablet,extended release RxNorm: 199760 1 Tablet(s) Oral two times a day replaces fentanyl 10/25/2019 10/25/2019 Inactive Premarin 0.45 mg tablet RxNorm: 786197 TAKE ONE TABLET BY MOUTH DAILY 10/24/2019 01/30/2020 Inactive Duragesic 100 mcg/hr transdermal patch RxNorm: 790066 2 Application TD Q48H for pain 10/18/2019 10/24/2019 Inactive gabapentin 300 mg capsule RxNorm: 111684 TAKE ONE CAPSULE BY MO UTH TWICE A DAY 10/16/2019 01/15/2020 Inactive cyclobenzaprine 10 mg tablet RxNorm: 759378 TAKE ONE TA BLET BY MOUTH THREE TIMES A DAY NEEDED 09/27/2019 11/20/2019 Inactive Relistor 150 mg tablet RxNorm: 9868496 TAKE THREE TABLETS BY [facility] DAILY 09/25/2019 10/24/2019 Inactive ProAir HFA 90 mcg/actuation aerosol inhaler RxNorm: 011146 INHALE ONE PUFF BY MOUTH EVERY 4 HOURS FOR WHEEZING OR FOR SHORTNESS OF BREATH 09/25/2019 01/03/2020 Inactive furosemide 40 mg tablet RxNorm: 106267 1 Tablet(s) Oral QAM as needed 09/25/2019 09/25/2019 Inactive oxycodone 15 mg tablet RxNorm: 6016303 1 Tablet(s) PO QID as nee ded for pain 09/21/2019 10/24/2019 Inactive Duragesic 100 mcg/hr transdermal patch RxNorm: 647269 2 Application TD Q48H for pain 09/19/2019 10/17/2019 Inactive Daliresp 500 mcg tablet RxNorm: 8358192 1 Tablet(s) Oral QD 019 02/18/2020 Inactive Relistor 150 mg tablet RxNorm: 5356838 TAKE THREE TABLETS BY [facility]ENO[facility] TH DAILY 07/25/2019 07/30/2019 Inactive cyclobenzaprine 10 mg tablet RxNorm: 088405 TAKE ONE TA BLET BY MOUTH THREE TIMES A DAY NEEDED 07/25/2019 09/22/2019 Inactive potassium chloride ER 20 mEq tablet,extended release RxNorm: 688698 TAKE ONE TABLET BY MOUTH DAILY 07/25/2019 01/07/2020 Inactive fluoxetine 40 mg capsule RxNorm: 307717 TAKE ONE CAPSULE BY BENOIT TH EVERY MORNING 07/11/2019 10/24/2019 Inactive Medrol (Aníbal) 4 mg tablets in a dose pack RxNorm: 639592 6 Tablet(s) PO QD --then as directed 07/10/2019 07/15/2019 Inactive omeprazole 40 mg capsule,delayed release RxNorm: 515326 1 Capsule(s) PO QD for stomach TAKE ONE CAPSULE BY MOUTH DAILY 07/10/2019 10/24/2019 Inactive Augmentin 875 mg-125 mg tablet RxNorm: 687589 1 Tablet(s) PO BID 07/16/2019 Inactive Trulicity 0.75 mg/0.5 mL subcutaneous pen injector RxNorm: 1 951005 0.75 Milliliter(s) SQ weekly 07/05/2019 10/24/2019 Inactive Compazine 10 mg tablet RxNorm: 136969 TAKE ONE TABLET B Y MOUTH FOUR TIMES A DAY NEEDED FOR NAUSEA 06/20/2019 07/19/2019 Inactive ProAir HFA 90 mcg/actuation aerosol inhaler RxNorm: 441173 INHALE ONE PUFF BY MOUTH EVERY 4 HOURS FOR WHEEZING OR FOR SHORTNESS OF BREATH 06/20/2019 06/23/2019 Inactive Daliresp 500 mcg tablet RxNorm: 2253827 TAKE ONE TABLET BY MOUTH DAILY 06/12/2019 09/10/2019 Inactive wnftetkb-ozxujflgx-flxzdvegb 3.5 mg/mL-10,000 unit/mL- 1 % ear solution RxNorm: 147730 4 Drop(s) otic (ear) TID to left ear 06/05/2019 10/24/2019 Inac tive furosemide 40 mg tablet RxNorm: 385921 TAKE ONE TABLET BY MOUTH EVERY MORNING 05/26/2019 07/09/2019 Inactive Duragesic 100 mcg/hr transdermal patch RxNorm: 746907 2 Application TD Q48H for pain 05/16/2019 06/14/2019 Inactive oxycodone 15 mg tablet RxNorm: 8296048 1 Tablet(s) PO QID as nee ded for pain 05/10/2019 09/20/2019 Inactive doxycycline hyclate 100 mg capsule RxNorm: 9233026 1 Capsule(s) PO BID 05/03/2019 05/12/2019 Inactive prednisone 20 mg tablet RxNorm: 000918 1 Tablet(s) PO T ID for 3 days then 1 po BID for 3 days then one daily for 3 days 05/03/2019 07/11/2019 Inactiv e Ozempic 0.25 mg or 0.5 mg (2 mg/1.5 mL) subcutaneous p en injector RxNorm: 4195533 0.5 Milligram(s) SQ QW 05/03/2019 07/09/2019 Inactive fluconazole 100 mg tablet RxNorm: 476381 1 Tablet(s) PO QD 05/03/20 19 05/07/2019 Inactive Premarin 0.45 mg tablet RxNorm: 545549 TAKE ONE TABLET BY MOUTH DAILY 05/03/2019 10/23/2019 Inactive potassium chloride ER 20 mEq tablet,extended release RxNorm: 806377 1 Tablet(s) PO QD 04/27/2019 07/25/2019 Inactive potassium chloride ER 20 mEq tablet,extended release RxNorm: 559662 1 Tablet(s) PO QD 04/25/2019 04/26/2019 Inactive Compazine 10 mg tablet RxNorm: 007950 1 Tablet(s) PO QID as nee ded for nausea 04/25/2019 05/04/2019 Inactive ProAir HFA 90 mcg/actuation aerosol inhaler RxNorm: 837788 INHALE ONE PUFF BY MOUTH EVERY 4 HOURS FOR WHEEZING OR FOR SHORTNESS OF BREATH 04/12/2019 06/10/2019 Inactive Medrol (Aníbal) 4 mg tablets in a dose pack RxNorm: 347649 6 Tablet(s) PO QD --then as directed 04/11/2019 04/16/2019 Inactive Symbicort 160 mcg-4.5 mcg/actuation HFA aerosol inhaler RxNo rm: 9415342 2 Puff(s) INH BID 04/10/2019 10/06/2019 Inactive levothyroxine 50 mcg tablet RxNorm: 083809 1 Tablet(s) PO QD 201810/24/2019 Inactive gabapentin 300 mg capsule RxNorm: 080153 1 Capsule(s) PO BID 201810/02/2019 Inactive Symbicort 160 mcg-4.5 mcg/actuation HFA aerosol inhaler RxNo rm: 1392398 2 Puff(s) INH BID 04/06/2019 04/09/2019 Inactive oxycodone 15 mg tablet RxNorm: 7092661 1 Tablet(s) PO QID as nee ded for pain 04/05/2019 05/09/2019 Inactive levothyroxine 50 mcg tablet RxNorm: 456695 1 Tablet(s) PO QD 201804/09/2019 Inactive furosemide 40 mg tablet RxNorm: 085778 TAKE ONE TABLET BY MOUTH EVERY MORNING 03/21/2019 04/19/2019 Inactive levothyroxine 50 mcg tablet RxNorm: 349326 TAKE ONE TABLET BY M OUTH DAILY 03/21/2019 03/27/2019 Inactive Duragesic 100 mcg/hr transdermal patch RxNorm: 763684 2 Application TD Q48H for pain 03/13/2019 04/11/2019 Inactive oxycodone 15 mg tablet RxNorm: 5540331 1 Tablet(s) PO QID as nee ded for pain 03/06/2019 04/04/2019 Inactive Relistor 150 mg tablet RxNorm: 2919858 3 Tablet(s) PO QD 02/28/2019 0 05/28/2019 Inactive cyclobenzaprine 10 mg tablet RxNorm: 383764 1 Tablet(s) PO TID as needed 02/28/2019 05/28/2019 Inactive phentermine 37.5 mg tablet RxNorm: 501740 1 Tablet(s) PO QAM 201803/15/2019 Inactive Duragesic 100 mcg/hr transdermal patch RxNorm: 060940 2 Application TD Q48H for pain 02/09/2019 03/10/2019 Inactive Daliresp 500 mcg tablet RxNorm: 1589377 TAKE ONE TABLET BY MOUTH DAILY 01/31/2019 05/30/2019 Inactive Premarin 0.45 mg tablet RxNorm: 231423 1 Tablet(s) PO QD 01/31/2019 0 04/30/2019 Inactive fluoxetine 40 mg capsule RxNorm: 291341 Capsule(s) TAKE ONE CAPSULE BY MOUTH EVERY MORNING 01/31/2019 04/30/2019 Inactive levothyroxine 50 mcg tablet RxNorm: 080807 1 Tablet(s) PO QD 201804/10/2019 Inactive follow up in 3 weeks levothyroxine 50 mcg tablet RxNorm: 367397 1 Tablet(s) PO QD 201801/25/2019 Inactive follow up in 3 weeks potassium chloride ER 20 mEq tablet,extended release RxNorm: 014963 2 Tablet(s) PO BID 01/23/2019 01/08/2020 Inactive Synthroid 50 mcg tablet RxNorm: 200022 TAKE ONE TABLET BY MOUTH DAILY 01/16/2019 10/24/2019 Inactive potassium chloride ER 20 mEq tablet,extended release RxNorm: 331888 2 Tablet(s) PO BID 01/04/2019 01/22/2019 Inactive ProAir HFA 90 mcg/actuation aerosol inhaler RxNorm: 731629 INHALE ONE PUFF BY MOUTH EVERY 4 HOURS FOR WHEEZING OR SHORTNESS OF BREATH 01/04/201902/20 Inactive Request already responded to by other me ans (e.g. phone or fax) ProAir HFA 90 mcg/actuation aerosol inhaler RxNorm: 6248318 INHALE ONE PUFF BY MOUTH EVERY 4 HOURS FOR WHEEZING OR SHORTNESS OF BREATH 01/02/201912/23 Inactive gabapentin 300 mg capsule RxNorm: 168394 TAKE ONE CAPSULE BY MO UTH TWICE A DAY 12/30/2018 04/06/2019 Inactive furosemide 40 mg tablet RxNorm: 687776 1 Tablet(s) PO QAM 12/26/2018 02/23/2019 Inactive Compazine 10 mg tablet RxNorm: 253630 1 Tablet(s) PO QID as nee ded for nausea 12/07/2018 12/16/2018 Inactive metolazone 2.5 mg tablet RxNorm: 697197 TAKE ONE TABLET BY MOUT H EVERY MORNING 12/05/2018 01/03/2019 Inactive metformin ER 500 mg tablet,extended release 24 hr RxNorm: 86 0975 TAKE ONE TABLET BY MOUTH DAILY 12/05/2018 01/31/2020 Inactive Synthroid 50 mcg tablet RxNorm: 567336 1 Tablet(s) PO QD 11/25/2018 0 01/03/2019 Inactive DC any other synthroid strengths. Should be 50mcg only cyclobenzaprine 10 mg tablet RxNorm: 965193 TAKE ONE TA BLET BY MOUTH THREE TIMES A DAY NEEDED 11/09/2018 02/06/2019 Inactive metolazone 2.5 mg tablet RxNorm: 689744 1 Tablet(s) PO QAM repl aces 5mg dose 11/02/2018 12/01/2018 Inactive potassium chloride ER 20 mEq tablet,extended release RxNorm: 069352 2 Tablet(s) PO QD 2018 01/02/2019 Inactive Compazine 10 mg tablet RxNorm: 381588 1 Tablet(s) PO QID as nee ded for nausea 10/18/2018 12/07/2018 Inactive furosemide 40 mg tablet RxNorm: 390898 1 Tablet(s) PO QAM 10/12/2018 12/10/2018 Inactive ondansetron 8 mg disintegrating tablet RxNorm: 980558 1 Tablet(s) PO Q6H as needed 10/11/2018 10/17/2018 Inactive scopolamine 1 mg over 3 days transdermal patch RxNorm: 70287 2 1 Application TD behind ear. Take off after three days 10/11/2018 01/02/2019 Inactive furosemide 40 mg tablet RxNorm: 357487 1 Tablet(s) PO QAM 10/10/2018 12/26/2018 Inactive metolazone 5 mg tablet RxNorm: 925580 1 Tablet(s) PO QAM 10/06/2018 1 01/03/2018 Inactive metolazone 5 mg tablet RxNorm: 518541 1 Tablet(s) PO QAM 10/06/2018 1 12/05/2017 Inactive Xtampza ER 36 mg capsule sprinkle RxNorm: 3658155 1 Capsule(s) P O BID 10/05/2018 01/02/2019 Inactive Xtampza ER 36 mg capsule sprinkle RxNorm: 8091905 1 Capsule(s) P O BID 10/05/2018 02/12/2019 Inactive omeprazole 40 mg capsule,delayed release RxNorm: 836839 TAKE ONE CAPSULE BY MOUTH DAILY 10/03/2018 12/31/2018 Inactive Duragesic 100 mcg/hr transdermal patch RxNorm: 790728 2 Application TD Q48H for pain 09/30/2018 10/29/2018 Inactive Synthroid 50 mcg tablet RxNorm: 680900 1 Tablet(s) PO QD 09/29/2018 0 11/25/2018 Inactive DC any other synthroid strengths. Should be 50mcg only Synthroid 50 mcg tablet RxNorm: 349330 1 Tablet(s) PO QD 09/29/2018 1 11/28/2017 Inactive furosemide 40 mg tablet RxNorm: 407393 2 Tablet(s) PO Q AM for 1 week then every other day for 2 weeks 09/27/2018 10/12/2018 Inactive fluoxetine 40 mg capsule RxNorm: 930720 2 Capsule(s) PO QD 09/27/20 18 10/17/2018 Inactive potassium chloride ER 20 mEq tablet,extended release RxNorm: 689996 2 Tablet(s) PO QD for 1 week then every other day for 2 weeks 09/27/2018 2018 Inactive ProAir HFA 90 mcg/actuation aerosol inhaler RxNorm: 4365271 INHALE ONE PUFF BY MOUTH EVERY 4 HOURS FOR WHEEZING OR SHORTNESS OF BREATH 09/26/201811/23 Inactive Synthroid 75 mcg tablet RxNorm: 824447 1 Tablet(s) PO QD 09/09/2018 1 Inactive Synthroid 75 mcg tablet RxNorm: 335714 1 Tablet(s) PO QD 09/09/2018 1 11/28/2017 Inactive furosemide 40 mg tablet RxNorm: 318355 1 Tablet(s) PO QD 09/06/2018 1 Inactive potassium chloride ER 20 mEq tablet,extended release RxNorm: 857438 1 Tablet(s) PO QD 09/06/2018 09/19/2018 Inactive Duragesic 100 mcg/hr transdermal patch RxNorm: 897936 2 Application TD Q48H for pain 08/30/2018 09/28/2018 Inactive gabapentin 300 mg capsule RxNorm: 725910 TAKE ONE CAPSULE BY [facility] TWICE A DAY 08/23/2018 12/20/2018 Inactive Daliresp 500 mcg tablet RxNorm: 6656756 TAKE ONE TABLET BY MOUTH DAILY 08/23/2018 01/19/2019 Inactive Pulmicort 1 mg/2 mL suspension for nebulization RxNorm: 6168 19 USE ONE VIAL VIA NEBULIZER BY MOUTH TWICE A DAY 08/23/2018 07/11/2019 Inactive Synthroid 88 mcg tablet RxNorm: 852700 1 Tablet(s) PO QD 08/19/2018 Inactive Medrol (Aníbal) 4 mg tablets in a dose pack RxNorm: 342273 Tablet(s) PO take as directed 08/16/2018 09/05/2018 Inactive Relistor 150 mg tablet RxNorm: 6596955 3 Tablet(s) PO QD 08/16/2018 Inactive Zithromax Z-Aníbal 250 mg tablet RxNorm: 849864 Tablet(s) PO take as directed 08/16/2018 09/05/2018 Inactive cyclobenzaprine 10 mg tablet RxNorm: 851749 1 Tablet(s) PO TID as needed 08/16/2018 11/08/2018 Inactive Synthroid 88 mcg tablet RxNorm: 564714 1 Tablet(s) PO Q D NEEDS UPDATED LABS BEFORE FURTHER REFILLS 08/08/2018 08/19/2018 Inactive Premarin 0.45 mg tablet RxNorm: 077062 1 Tablet(s) PO QD 08/03/2018 0 01/31/2019 Inactive fluoxetine 20 mg capsule RxNorm: 259254 TAKE ONE CAPSULE BY [facility]ENO[facility] TH DAILY 08/03/2018 09/26/2018 Inactive Xtampza ER 36 mg capsule sprinkle RxNorm: 0991647 1 Capsule(s) P O BID 08/03/2018 09/01/2018 Inactive metformin ER 500 mg tablet,extended release 24 hr RxNorm: 86 0975 1 Tablet(s) PO QD 08/03/2018 10/31/2018 Inactive Symbicort 160 mcg-4.5 mcg/actuation HFA aerosol inhaler RxNo rm: 1592206 2 Puff(s) INH BID 08/03/2018 01/29/2019 Inactive Duragesic 100 mcg/hr transdermal patch RxNorm: 004983 2 Application TD Q48H for pain 07/29/2018 08/27/2018 Inactive ProAir HFA 90 mcg/actuation aerosol inhaler RxNorm: 145238 INHALE TWO PUFFS BY MOUTH EVERY 4 HOURS FOR WHEEZING OR SHORTNESS OF BREATH 07/27/201802/2018 Inactive Relistor 150 mg tablet RxNorm: 8821876 3 Tablet(s) PO QD 07/20/2018 0 08/15/2018 Inactive metformin ER 500 mg tablet,extended release 24 hr RxNorm: 86 0975 TAKE ONE TABLET BY MOUTH DAILY 07/08/2018 08/02/2018 Inactive fluoxetine 40 mg capsule RxNorm: 513171 TAKE ONE CAPSULE BY [facility]ENOIT TH EVERY MORNING 07/08/2018 10/05/2018 Inactive Xtampza ER 18 mg capsule sprinkle RxNorm: 0295065 1 Capsule(s) P O BID 07/08/2018 08/02/2018 Inactive Relistor 150 mg tablet RxNorm: 9537535 3 Tablet(s) PO QD 07/08/2018 0 07/12/2018 Inactive Synthroid 88 mcg tablet RxNorm: 834128 1 Tablet(s) PO Q D NEEDS UPDATED LABS BEFORE FURTHER REFILLS 06/23/2018 07/07/2018 Inactive fluoxetine 40 mg capsule RxNorm: 418146 TAKE ONE CAPSULE BY BENOIT TH EVERY MORNING 06/15/2018 09/26/2018 Inactive orphenadrine citrate ER 100 mg tablet,extended release RxNor m: 783233 TAKE ONE TABLET BY MOUTH TWICE A DAY FOR MUSCLE SPASM 06/15/2018 08/15/2018 [place] ctive Duragesic 100 mcg/hr transdermal patch RxNorm: 180023 2 Application TD Q48H for pain 05/30/2018 06/28/2018 Inactive ProAir HFA 90 mcg/actuation aerosol inhaler RxNorm: 848431 INHALE TWO PUFFS BY MOUTH EVERY 4 HOURS FOR WHEEZING OR SHORTNESS OF BREATH 05/19/201803/2018 Inactive Chantix Continuing Month Box 1 mg tablet RxNorm: 157408 TAKE ONE TABLET BY MOUTH TWICE A DAY 05/19/2018 08/15/2018 Inactive oxycodone 10 mg tablet RxNorm: 6791195 1-2 Tablet(s) PO QID as n eeded for pain 05/19/2018 07/07/2018 Inactive gabapentin 300 mg capsule RxNorm: 377867 TAKE ONE CAPSULE BY MO TXH TWICE A DAY 05/18/2018 07/16/2018 Inactive ProAir HFA 90 mcg/actuation aerosol inhaler RxNorm: 413936 INHALE TWO PUFFS BY MOUTH EVERY 4 HOURS FOR WHEEZING OR SHORTNESS OF BREATH 05/04/201804/23 Inactive Augmentin 500 mg-125 mg tablet RxNorm: 504443 1 Tablet(s) PO BID 05/03/2018 Inactive oxycodone 10 mg tablet RxNorm: 4955494 1-2 Tablet(s) PO QID as n eeded for pain 04/21/2018 05/18/2018 Inactive Synthroid 88 mcg tablet RxNorm: 032018 1 Tablet(s) PO QD 04/15/2018 0 08/08/2018 Inactive Symbicort 160 mcg-4.5 mcg/actuation HFA aerosol inhaler RxNo rm: 5755364 2 Puff(s) INH BID 04/15/2018 04/10/2019 Inactive Premarin 0.45 mg tablet RxNorm: 638219 1 Tablet(s) PO QD 04/15/2018 0 08/03/2018 Inactive ProAir HFA 90 mcg/actuation aerosol inhaler RxNorm: 815225 2 Puff(s) INH Q4H prn for wheezing or shortness of breath 04/15/2018 05/03/2018 Inactive metformin ER 500 mg tablet,extended release 24 hr RxNorm: 86 0975 1 Tablet(s) PO QD 04/11/2018 07/07/2018 Inactive omeprazole 40 mg capsule,delayed release RxNorm: 920789 TAKE ONE CAPSULE BY MOUTH DAILY 04/10/2018 06/08/2018 Inactive Synthroid 88 mcg tablet RxNorm: 252278 1 Tablet(s) PO QD 04/04/2018 0 04/14/2018 Inactive Synthroid 88 mcg tablet RxNorm: 132724 1 Tablet(s) PO QD 04/04/2018 0 04/03/2018 Inactive orphenadrine citrate ER 100 mg tablet,extended release RxNor m: 516705 1 Tablet(s) PO BID for muscle spasm 04/04/2018 05/03/2018 Inactive metformin ER 500 mg tablet,extended release 24 hr RxNorm: 86 0975 1 Tablet(s) PO QD NEEDS UPDATED LABS 03/31/2018 04/11/2018 Inactive doxycycline hyclate 100 mg capsule RxNorm: 9289132 1 Capsule(s) PO BID 03/31/2018 04/09/2018 Inactive prednisone 20 mg tablet RxNorm: 716345 3 Tablet(s) PO T ID for 3 days then 1 po BID for 3 days then one daily for 3 days 03/31/2018 07/06/2018 Inactiv e Chantix Continuing Month Box 1 mg tablet RxNorm: 737247 TAKE ONE TABLET BY MOUTH TWICE A DAY 03/25/2018 03/30/2018 Inactive oxycodone 10 mg tablet RxNorm: 9340900 1-2 Tablet(s) PO QID as n eeded for pain 03/21/2018 04/20/2018 Inactive Daliresp 500 mcg tablet RxNorm: 7199027 1 Tablet(s) PO QD 03/15/2018 08/22/2018 Inactive metformin ER 500 mg tablet,extended release 24 hr RxNorm: 86 0975 1 Tablet(s) PO QD NEEDS UPDATED LABS 03/14/2018 03/31/2018 Inactive nystatin 100,000 unit/mL oral suspension RxNorm: 609635 5 Chio liter(s) PO QID 03/02/2018 03/15/2018 Inactive nystatin 100,000 unit/mL oral suspension RxNorm: 712590 5 Chio liter(s) PO QID 03/02/2018 03/01/2018 Inactive oxycodone 10 mg tablet RxNorm: 6137342 1-2 Tablet(s) PO QID as n eeded for pain 02/16/2018 03/20/2018 Inactive fluoxetine 20 mg capsule RxNorm: 550984 1 Capsule(s) PO QD 02/15/20 18 08/02/2018 Inactive metformin ER 500 mg tablet,extended release 24 hr RxNorm: 86 0975 1 Tablet(s) PO QD Needs updated labs 02/14/2018 03/14/2018 Inactive cefdinir 300 mg capsule RxNorm: 677656 1 Capsule(s) PO BID 01/27/20 18 02/04/2018 Inactive orphenadrine citrate ER 100 mg tablet,extended release RxNor m: 201861 1 Tablet(s) PO BID for muscle spasm 01/26/2018 04/04/2018 Inactive gabapentin 300 mg capsule RxNorm: 826167 1 Capsule(s) PO BID 201704/17/2018 Inactive oxycodone 10 mg tablet RxNorm: 2240385 1-2 Tablet(s) PO QID as n eeded for pain 01/17/2018 02/15/2018 Inactive Duragesic 100 mcg/hr transdermal patch RxNorm: 532733 2 Application TD Q48H for pain 01/17/2018 02/15/2018 Inactive gabapentin 300 mg capsule RxNorm: 092102 TAKE ONE CAPSULE BY MO UTH TWICE A DAY 12/20/2017 01/18/2018 Inactive fluoxetine 40 mg capsule RxNorm: 706706 TAKE ONE CAPSULE BY BENOIT TH EVERY MORNING 12/15/2017 03/14/2018 Inactive OneTouch Ultra Test strips RxNorm: TEST DAILY 11/04/2017 02/01/2018 Inactive gabapentin 300 mg capsule RxNorm: 150126 1 Capsule(s) P O TID replaces BID dosing 10/26/2017 02/22/2018 Inactive oxycodone 10 mg tablet RxNorm: 3444058 1-2 Tablet(s) PO QID as n eeded for pain 10/18/2017 01/16/2018 Inactive Duragesic 100 mcg/hr transdermal patch RxNorm: 078395 2 Application TD Q48H for pain 10/18/2017 11/16/2017 Inactive gabapentin 300 mg capsule RxNorm: 940022 1 Capsule(s) PO BID 201610/25/2017 Inactive Abilify 5 mg tablet RxNorm: 078977 1 Tablet(s) PO QAM 09/23/201702/2017 Inactive gabapentin 300 mg capsule RxNorm: 357459 1 Capsule(s) PO BID 201610/17/2017 Inactive oxycodone 10 mg tablet RxNorm: 9733834 1-2 Tablet(s) PO QID as n eeded for pain 09/15/2017 10/17/2017 Inactive Duragesic 100 mcg/hr transdermal patch RxNorm: 366087 2 Application TD Q48H for pain 09/15/2017 10/14/2017 Inactive Duragesic 100 mcg/hr transdermal patch RxNorm: 365847 2 Application TD Q48H for pain 09/15/2017 10/24/2019 Inactive oxycodone 10 mg tablet RxNorm: 2875025 1-2 Tablet(s) PO QID as n eeded for pain 09/15/2017 08/15/2018 Inactive Daliresp 500 mcg tablet RxNorm: 4903604 1 Tablet(s) PO QD 09/06/2017 03/15/2018 Inactive Ventolin HFA 90 mcg/actuation aerosol inhaler RxNorm: 199619 2 Puff(s) INH Q4H as needed 09/02/2017 05/19/2018 Inactive oxycodone 10 mg tablet RxNorm: 8641873 1-2 Tablet(s) PO QID as n eeded for pain 08/17/2017 09/14/2017 Inactive Duragesic 100 mcg/hr transdermal patch RxNorm: 080660 2 Application TD Q48H for pain 08/17/2017 09/14/2017 Inactive fluoxetine 40 mg capsule RxNorm: 608181 Capsule(s) TAKE ONE CAPSULE BY MOUTH EVERY MORNING 08/17/2017 12/14/2017 Inactive Pulmicort 1 mg/2 mL suspension for nebulization RxNorm: 6168 19 1 Unit Dose INH BID Dx: COPD (J44.9) 08/16/2017 08/22/2018 Inactive gabapentin 300 mg capsule RxNorm: 262434 1 Capsule(s) PO QHS 201610/18/2017 Inactive fluoxetine 20 mg capsule RxNorm: 317257 1 Capsule(s) PO QD 08/12/20 17 02/14/2018 Inactive Abilify 2 mg tablet RxNorm: 705248 1 Tablet(s) PO QD TA KE ONE TABLET BY MOUTH DAILY 08/12/2017 10/25/2017 Inactive metformin ER 500 mg tablet,extended release 24 hr RxNorm: 86 0975 1 Tablet(s) PO QD 08/10/2017 02/14/2018 Inactive Synthroid 112 mcg tablet RxNorm: 311112 1 Tablet(s) PO QD 08/10/2017 04/15/2018 Inactive oxycodone 10 mg tablet RxNorm: 9551395 1-2 Tablet(s) PO QID as n eeded for pain 07/19/2017 08/16/2017 Inactive Duragesic 100 mcg/hr transdermal patch RxNorm: 143332 2 Application TD Q48H for pain 07/19/2017 08/16/2017 Inactive Ventolin HFA 90 mcg/actuation aerosol inhaler RxNorm: 789240 2 Puff(s) INH Q4H as needed 07/12/2017 09/02/2017 Inactive Abilify 2 mg tablet RxNorm: 326279 1 Tablet(s) PO QD TA KE ONE TABLET BY MOUTH DAILY 07/06/2017 08/11/2017 Inactive gabapentin 800 mg tablet RxNorm: 261414 1 Tablet(s) PO TID 06/22/20 17 07/05/2017 Inactive Chantix Starting Month Box 0.5 mg (11)-1 mg (42) table ts in dose pack RxNorm: 537423 TAKE BY MOUTH INSTRUCTED - PER PACKAGE INSTRUCTIONS 06/0707/04/2017 Inactive Ventolin HFA 90 mcg/actuation aerosol inhaler RxNorm: 323474 2 Puff(s) INH Q4H as needed 05/26/2017 07/12/2017 Inactive Duragesic 100 mcg/hr transdermal patch RxNorm: 832445 2 Application TD Q48H for pain 05/19/2017 06/17/2017 Inactive oxycodone 10 mg tablet RxNorm: 9616787 1-2 Tablet(s) PO QID as n eeded for pain 05/19/2017 07/18/2017 Inactive Abilify 2 mg tablet RxNorm: 599640 TAKE ONE TABLET BY MOUTH DAILY 0 05/10/2017 07/05/2017 Inactive Synthroid 112 mcg tablet RxNorm: 371520 1 Tablet(s) PO QD 05/06/2017 08/10/2017 Inactive metformin ER 500 mg tablet,extended release 24 hr RxNorm: 86 0975 1 Tablet(s) PO QD 05/06/2017 08/10/2017 Inactive Topamax 100 mg tablet RxNorm: 632379 1 Tablet(s) PO QHS 05/06/2017 Inactive Premarin 0.45 mg tablet RxNorm: 906228 1 Tablet(s) PO QD 05/06/2017 0 04/15/2018 Inactive orphenadrine citrate ER 100 mg tablet,extended release RxNor m: 296860 1 Tablet(s) PO TID for muscle spasm--replaces methocarbamol 04/29/2017 Inactive oxycodone 10 mg tablet RxNorm: 4948828 1-2 Tablet(s) PO QID as n eeded for pain 04/21/2017 05/18/2017 Inactive Duragesic 100 mcg/hr transdermal patch RxNorm: 128063 2 Application TD Q48H for pain 04/21/2017 05/18/2017 Inactive fluoxetine 40 mg capsule RxNorm: 338409 Capsule(s) TAKE ONE CAPSULE BY MOUTH EVERY MORNING 04/20/2017 08/17/2017 Inactive Ventolin HFA 90 mcg/actuation aerosol inhaler RxNorm: 717718 2 Puff(s) INH Q4H as needed 04/05/2017 05/26/2017 Inactive Symbicort 160 mcg-4.5 mcg/actuation HFA aerosol inhaler RxNo rm: 9013799 2 Puff(s) INH BID 03/30/2017 04/15/2018 Inactive Spiriva with HandiHaler 18 mcg and inhalation capsules RxNor m: 472790 1 Capsule(s) INH QD USING HANDIHALER 03/30/2017 02/12/2019 Inactive Duragesic 100 mcg/hr transdermal patch RxNorm: 896384 2 Application TD Q48H for pain 03/18/2017 04/16/2017 Inactive oxycodone 10 mg tablet RxNorm: 0492473 1-2 Tablet(s) PO QID as n eeded for pain 03/18/2017 04/20/2017 Inactive metformin ER 500 mg tablet,extended release 24 hr RxNorm: 86 0975 Tablet(s) TAKE ONE TABLET BY MOUTH DAILY 03/01/2017 05/06/2017 Inactive Premarin 0.45 mg tablet RxNorm: 752328 Tablet(s) TAKE ONE TABLE T BY MOUTH DAILY 03/01/2017 05/06/2017 Inactive Synthroid 112 mcg tablet RxNorm: 044268 Tablet(s) TAKE ONE TABLET BY MOUTH DAILY 03/01/2017 05/06/2017 Inactive Daliresp 500 mcg tablet RxNorm: 8452733 1 Tablet(s) PO QD 03/01/2017 09/06/2017 Inactive 16.2 mg-0.1037 mg-0.0194 mg tablet RxNorm: 9752645 Tablet(s) PO PRN for gas and cramping 02/23/2017 04/28/2017 Inactive TAKE TWO TABLET S BY MOUTH THREE TIMES A DAY NEEDED FOR GAS AND CRAMPING gabapentin 800 mg tablet RxNorm: 520870 1 Tablet(s) PO TID repl aces 600mg 02/23/2017 04/28/2017 Inactive Duragesic 100 mcg/hr transdermal patch RxNorm: 625349 2 Application TD Q48H for pain 02/17/2017 03/17/2017 Inactive fluoxetine 20 mg capsule RxNorm: 246041 1 Capsule(s) PO QD 02/18/20 17 08/12/2017 Inactive oxycodone 20 mg tablet RxNorm: 8589847 1 Tablet(s) PO QID as nee ded for pain 02/17/2017 03/17/2017 Inactive Ventolin HFA 90 mcg/actuation aerosol inhaler RxNorm: 348026 INHALE TWO PUFFS BY MOUTH EVERY 4 HOURS NEEDED 02/15/2017 04/05/2017 Inactive Silvadene 1 % topical cream RxNorm: 523080 1 Application TOP BI D to burn area 02/01/2017 09/22/2017 Inactive Topamax 100 mg tablet RxNorm: 480783 TAKE ONE TABLET BY MOUTH EVERY NIGHT AT BEDTIME 01/29/2017 05/06/2017 Inactive Chantix Starting Month Box 0.5 mg (11)-1 mg (42) table ts in dose pack RxNorm: 943992 Tablet(s) PO as directed 01/29/2017 06/01/2017 Inactive Abilify 2 mg tablet RxNorm: 340588 TAKE ONE TABLET BY MOUTH DAILY 0 01/26/2017 04/25/2017 Inactive Chantix Starting Month Box 0.5 mg (11)-1 mg (42) table ts in dose pack RxNorm: 332469 Tablet(s) PO as directed 01/20/2017 01/28/2017 Inactive gabapentin 600 mg tablet RxNorm: 281553 1 Tablet(s) PO TID 01/21/20 17 02/22/2017 Inactive Chantix Continuing Month Box 1 mg tablet RxNorm: 005601 1 Table t(s) PO BID 12/31/2016 06/01/2017 Inactive Spiriva with HandiHaler 18 mcg and inhalation capsules RxNor m: 363022 INHALE THE ENTIRE CONTENTS OF 1 CAPSULE ONCE A DAY USING HANDIHALER 12/31/201607/2017 Inactive Synthroid 112 mcg tablet RxNorm: 454845 TAKE ONE TABLET BY MOUT H DAILY 12/30/2016 03/01/2017 Inactive metformin ER 500 mg tablet,extended release 24 hr RxNorm: 86 0975 TAKE ONE TABLET BY MOUTH DAILY 12/30/2016 03/01/2017 Inactive Premarin 0.45 mg tablet RxNorm: 673687 TAKE ONE TABLET BY MOUTH DAILY 12/30/2016 03/01/2017 Inactive omeprazole 40 mg capsule,delayed release RxNorm: 683684 TAKE ONE CAPSULE BY MOUTH DAILY 12/30/2016 01/25/2018 Inactive Ventolin HFA 90 mcg/actuation aerosol inhaler RxNorm: 973999 INHALE TWO PUFFS BY MOUTH EVERY 4 HOURS NEEDED 12/28/2016 02/13/2017 Inactive fluoxetine 40 mg capsule RxNorm: 470247 TAKE ONE CAPSULE BY BENOIT TH EVERY MORNING 12/15/2016 04/20/2017 Inactive Chantix Continuing Month Box 1 mg tablet RxNorm: 036753 TAKE ONE TABLET BY MOUTH TWICE A DAY 12/04/2016 12/31/2016 Inactive doxycycline hyclate 100 mg capsule RxNorm: 0910933 1 Capsule(s) PO BID 12/01/2016 12/07/2016 Inactive Levaquin 750 mg tablet RxNorm: 691276 1 Tablet(s) PO QD 12/01/2016 Inactive Abilify 2 mg tablet RxNorm: 521824 TAKE ONE TABLET BY MOUTH DAILY 0 11/25/2016 11/30/2016 Inactive Ventolin HFA 90 mcg/actuation aerosol inhaler RxNorm: 323994 INHALE TWO PUFFS BY MOUTH EVERY 4 HOURS NEEDED 11/02/2016 12/19/2016 Inactive Chantix Continuing Month Box 1 mg tablet RxNorm: 828357 Tablet(s) PO as directed 10/30/2016 12/03/2016 Inactive Symbicort 160 mcg-4.5 mcg/actuation HFA aerosol inhaler RxNo rm: 0632567 INHALE TWO PUFFS TWO TIMES A DAY 10/30/2016 03/30/2017 Inactive Abilify 2 mg tablet RxNorm: 088730 1 Tablet(s) PO QD 10/27/201611/24 Inactive amoxicillin 500 mg capsule RxNorm: 330270 1 Capsule(s) PO TID 10/1410/23/2016 Inactive amoxicillin 500 mg capsule RxNorm: 738648 1 Capsule(s) PO TID 10/1410/13/2016 Inactive Synthroid 112 mcg tablet RxNorm: 901782 TAKE ONE TABLET BY MOUT H DAILY 09/28/2016 12/29/2016 Inactive Topamax 100 mg tablet RxNorm: 037396 TAKE ONE TABLET BY MOUTH EVERY NIGHT AT BEDTIME 09/28/2016 01/28/2017 Inactive Premarin 0.45 mg tablet RxNorm: 581473 TAKE ONE TABLET BY MOUTH DAILY 09/28/2016 12/29/2016 Inactive metformin ER 500 mg tablet,extended release 24 hr RxNorm: 86 0975 TAKE ONE TABLET BY MOUTH DAILY 09/28/2016 12/29/2016 Inactive Ventolin HFA 90 mcg/actuation aerosol inhaler RxNorm: 916044 INHALE TWO PUFFS BY MOUTH EVERY 4 HOURS NEEDED 09/22/2016 10/23/2016 Inactive Pulmicort 1 mg/2 mL suspension for nebulization RxNorm: 6168 19 1 Unit Dose INH BID Dx: COPD (J44.9) 09/10/2016 08/16/2017 Inactive Pulmicort 1 mg/2 mL suspension for nebulization RxNorm: 6168 19 1 Unit Dose INH BID 09/10/2016 09/09/2016 Inactive Brovana 15 mcg/2 mL solution for nebulization RxNorm: 892406 1 Unit Dose INH BID Dx: COPD (J44.9) 09/10/2016 01/25/2018 Inactive Brovana 15 mcg/2 mL solution for nebulization RxNorm: 274786 1 Unit Dose INH BID 09/10/2016 09/09/2016 Inactive ipratropium-albuterol 0.5 mg-3 mg(2.5 mg base)/3 mL ne bulization soln RxNorm: 7175159 1 Unit Dose INH Q4H as needed Dx: COPD (J44.9) 09/10/2016 0 02/12/2019 Inactive orphenadrine citrate ER 100 mg tablet,extended release RxNor m: 619467 1 Tablet(s) PO BID for muscle spasm--replaces methocarbamol 09/09/2016 Inactive Chantix Continuing Month Box 1 mg tablet RxNorm: 293690 Tablet(s) PO as directed 09/09/2016 10/30/2016 Inactive orphenadrine citrate ER 100 mg tablet,extended release RxNor m: 595951 1 Tablet(s) PO BID for muscle spasm 09/09/2016 09/08/2016 Inactive Spiriva with HandiHaler 18 mcg and inhalation capsules RxNor m: 884063 INHALE THE ENTIRE CONTENTS OF 1 CAPSULE ONCE A DAY USING HANDIHALER 09/01/201605/2017 Inactive Daliresp 500 mcg tablet RxNorm: 2755268 1 Tablet(s) PO QD 08/27/2016 03/01/2017 Inactive prednisone 20 mg tablet RxNorm: 574900 3 Tablet(s) PO T ID for 3 days then 1 po BID for 3 days then one daily for 3 days 08/26/2016 04/28/2017 Inactiv e Wellbutrin XL 300 mg 24 hr tablet, extended release RxNorm: 322212 TAKE ONE TABLET BY MOUTH EVERY MORNING 07/29/2016 10/26/2016 Inactive gabapentin 600 mg tablet RxNorm: 326778 1 Tablet(s) PO BID 06/26/20 16 12/22/2016 Inactive fluoxetine 40 mg capsule RxNorm: 365327 TAKE ONE CAPSULE BY BENOIT TH EVERY MORNING 06/24/2016 11/20/2016 Inactive Duragesic 100 mcg/hr transdermal patch RxNorm: 139599 2 Application TD Q48H for pain 06/05/2016 07/04/2016 Inactive oxycodone 10 mg tablet RxNorm: 8938951 1-2 Tablet(s) PO QID as n eeded for pain 06/05/2016 03/17/2017 Inactive Belladonna-Phenobarbital 48 mg tablet,extended release RxNor m: 2 Tablet(s) PO TID 06/05/2016 01/19/2017 Inactive Premarin 0.45 mg tablet RxNorm: 976391 TAKE ONE TABLET BY MOUTH DAILY 05/27/2016 09/23/2016 Inactive Topamax 100 mg tablet RxNorm: 861513 TAKE ONE TABLET BY MOUTH EVERY NIGHT AT BEDTIME 05/27/2016 09/27/2016 Inactive Synthroid 112 mcg tablet RxNorm: 592511 TAKE ONE TABLET BY MOUT H DAILY 05/27/2016 09/23/2016 Inactive metformin ER 500 mg tablet,extended release 24 hr RxNorm: 86 0975 TAKE ONE TABLET BY MOUTH DAILY 05/27/2016 09/23/2016 Inactive Symbicort 160 mcg-4.5 mcg/actuation HFA aerosol inhaler RxNo rm: 7567222 INHALE TWO PUFFS TWO TIMES A DAY 05/27/2016 10/23/2016 Inactive Ventolin HFA 90 mcg/actuation aerosol inhaler RxNorm: 518027 INHALE TWO PUFFS BY MOUTH EVERY 4 HOURS NEEDED 05/21/2016 07/07/2016 Inactive omeprazole 40 mg capsule,delayed release RxNorm: 391905 1 Capsu le(s) PO QD 05/06/2016 08/03/2016 Inactive metformin ER 500 mg tablet,extended release 24 hr RxNorm: 86 0975 TAKE ONE TABLET BY MOUTH DAILY 04/23/2016 05/22/2016 Inactive methocarbamol 750 mg tablet RxNorm: 880269 2 Tablet(s) PO TID as needed for muscle spasm 04/23/2016 09/08/2016 Inactive Synthroid 112 mcg tablet RxNorm: 525224 TAKE ONE TABLET BY MOUT H DAILY 04/23/2016 05/22/2016 Inactive Spiriva with HandiHaler 18 mcg and inhalation capsules RxNor m: 783115 INHALE THE ENTIRE CONTENTS OF 1 CAPSULE ONCE A DAY USING HANDIHALER 04/09/201608/2016 Inactive Diflucan 100 mg tablet RxNorm: 995620 1 Tablet(s) PO QD 04/08/2016 Inactive doxycycline hyclate 100 mg capsule RxNorm: 3825737 1 Capsule(s) PO BID 04/08/2016 04/17/2016 Inactive doxycycline hyclate 100 mg capsule RxNorm: 5373264 1 Capsule(s) PO BID 04/08/2016 04/07/2016 Inactive Diflucan 100 mg tablet RxNorm: 799734 1 Tablet(s) PO QD 04/08/2016 Inactive ondansetron HCl 4 mg tablet RxNorm: 765322 1 Tablet(s) PO Q4H as needed for nausea and vomiting 04/08/2016 09/22/2017 Inactive gabapentin 600 mg tablet RxNorm: 883694 TAKE ONE TABLET BY MOUT H TWICE A DAY 03/24/2016 06/25/2016 Inactive Synthroid 112 mcg tablet RxNorm: 659527 TAKE ONE TABLET BY MOUT H DAILY 02/25/2016 04/22/2016 Inactive Levaquin 500 mg tablet RxNorm: 144249 1 Tablet(s) PO QD 01/23/2016 Inactive prednisone 20 mg tablet RxNorm: 484086 1 Tablet(s) PO T ID for 3 days then 1 po BID for 3 days then one daily for 3 days 01/23/2016 08/25/2016 Inactiv e Ferfics Ultra Test strips RxNorm: TEST BLOOD SUGAR ONCE DAILY 250.00 01/09/2016 11/04/2017 Inactive methocarbamol 750 mg tablet RxNorm: 395897 2 Tablet(s) PO TID as needed for muscle spasm 01/09/2016 04/23/2016 Inactive lactulose 10 gram/15 mL oral solution RxNorm: 536394 [address](s) PO QD 01/09/2016 09/22/2017 Inactive TAKE 1 TABLESPOON BY MOUTH ONCE DAILY metformin ER 500 mg tablet,extended release 24 hr RxNorm: 86 0975 1 Tablet(s) PO QD 12/26/2015 04/22/2016 Inactive fluoxetine 20 mg capsule RxNorm: 232872 1 Capsule(s) PO QD 12/23/19 16 06/19/2016 Inactive Premarin 0.45 mg tablet RxNorm: 732877 TAKE ONE TABLET BY MOUTH DAILY 12/23/2015 05/20/2016 Inactive fluoxetine 40 mg capsule RxNorm: 029336 1 Capsule(s) PO QD 12/23/19 16 06/19/2016 Inactive TAKE ONE CAPSULE BY MOUTH EV JANKI MORNING azithromycin 500 mg tablet RxNorm: 814653 1 Tablet(s) PO QD 016 12/19/2015 Inactive Zofran 4 mg tablet RxNorm: 188501 1 Tablet(s) PO Q4H prn nausea /vomiting 12/13/2015 03/30/2018 Inactive azithromycin 500 mg tablet RxNorm: 207687 1 Tablet(s) PO QD 016 12/12/2015 Inactive Duragesic 100 mcg/hr transdermal patch RxNorm: 582641 2 Application TD Q48H for pain 12/09/2015 01/07/2016 Inactive oxycodone 10 mg tablet RxNorm: 2695189 1-2 Tablet(s) PO QID as n eeded for pain 12/09/2015 06/04/2016 Inactive Bactroban 2 % topical cream RxNorm: 306364 Application TOP BID 11/2208/25/2016 Inactive doxycycline hyclate 100 mg capsule RxNorm: 0994647 1 Capsule(s) PO BID 12/03/2015 12/12/2015 Inactive Topamax 100 mg tablet RxNorm: 585476 TAKE ONE TABLET BY MOUTH EVERY NIGHT AT BEDTIME 11/25/2015 05/22/2016 Inactive Symbicort 160 mcg-4.5 mcg/actuation HFA aerosol inhaler RxNo rm: 0517441 INHALE TWO PUFFS TWO TIMES A DAY 11/25/2015 05/22/2016 Inactive Synthroid 112 mcg tablet RxNorm: 549048 Tablet(s) TAKE ONE TABLET BY MOUTH DAILY 11/25/2015 02/22/2016 Inactive omeprazole 40 mg capsule,delayed release RxNorm: 773259 1 Capsu le(s) PO QD 11/12/2015 05/05/2016 Inactive oxycodone 10 mg tablet RxNorm: 4882367 1-2 Tablet(s) PO QID as n eeded for pain 11/05/2015 12/08/2015 Inactive Duragesic 100 mcg/hr transdermal patch RxNorm: 609168 2 Application TD Q48H for pain 11/05/2015 12/04/2015 Inactive omeprazole 40 mg capsule,delayed release RxNorm: 785883 1 Capsu le(s) PO QD 10/07/2015 11/11/2015 Inactive Januvia 100 mg tablet RxNorm: 471627 TAKE ONE TABLET BY MOUTH DAILY 09/11/2015 12/25/2015 Inactive Zithromax 500 mg tablet RxNorm: 488915 1 Tablet(s) PO QD 09/10/2015 1 Inactive prednisone 20 mg tablet RxNorm: 087009 1 Tablet(s) PO T ID for 3 days then 1 po BID for 3 days then one daily for 3 days 09/10/2015 08/25/2016 Inactiv e Wellbutrin XL 300 mg 24 hr tablet, extended release RxNorm: 322125 1 Tablet(s) PO QAM 09/10/2015 12/02/2015 Inactive Topamax 100 mg tablet RxNorm: 963878 TAKE ONE TABLET BY MOUTH EVERY NIGHT AT BEDTIME 09/02/2015 11/24/2015 Inactive Synthroid 112 mcg tablet RxNorm: 202538 TAKE ONE TABLET BY MOUT H DAILY 09/02/2015 11/25/2015 Inactive methocarbamol 750 mg tablet RxNorm: 320873 2 Tablet(s) PO TID as needed for muscle spasm 08/15/2015 01/09/2016 Inactive Wellbutrin XL 150 mg 24 hr tablet, extended release RxNorm: 794923 TAKE ONE TABLET BY MOUTH EVERY MORNING 08/13/2015 08/13/2015 Inactive gabapentin 600 mg tablet RxNorm: 122419 1 Tablet(s) PO BID 08/13/20 15 02/08/2016 Inactive Wellbutrin XL 300 mg 24 hr tablet, extended release RxNorm: 042918 1 Tablet(s) PO QAM 08/06/2015 09/09/2015 Inactive Wellbutrin XL 150 mg 24 hr tablet, extended release RxNorm: 936625 1 Tablet(s) PO QAM 07/18/2015 08/05/2015 Inactive prednisone 20 mg tablet RxNorm: 781424 1 Tablet(s) PO BID 07/18/2015 07/22/2015 Inactive doxycycline hyclate 100 mg tablet,delayed release RxNorm: 43 4018 1 Tablet(s) PO BID 07/18/2015 07/27/2015 Inactive pravastatin 40 mg tablet RxNorm: 961087 1 Tablet(s) PO QD NEEDS FASTING LAB 07/15/2015 07/14/2015 Inactive pravastatin 40 mg tablet RxNorm: 950169 1 Tablet(s) PO QD NEEDS FASTING LAB 07/15/2015 01/25/2018 Inactive Ventolin HFA 90 mcg/actuation aerosol inhaler RxNorm: 235238 2 Puff(s) INH Q4H 07/08/2015 07/07/2015 Inactive prn Premarin 0.45 mg tablet RxNorm: 507264 1 Tablet(s) PO QD 07/01/2015 0 12/22/2015 Inactive pravastatin 40 mg tablet RxNorm: 701660 1 Tablet(s) PO QD NEEDS FASTING LAB 06/14/2015 07/15/2015 Inactive Ventolin HFA 90 mcg/actuation aerosol inhaler RxNorm: 3959133 2 Puff(s) INH Q4H 06/06/2015 07/08/2015 Inactive prn albuterol sulfate 2.5 mg/3 mL (0.083 %) solution for n ebulization RxNorm: 045429 1 Unit Dose INH QID 05/30/2015 No Stop Date Active Duragesic 100 mcg/hr transdermal patch RxNorm: 200879 2 Application TD Q48H for pain 04/29/2015 05/28/2015 Inactive gabapentin 600 mg tablet RxNorm: 985566 1 Tablet(s) PO BID 04/11/20 15 08/13/2015 Inactive Onglyza 5 mg tablet RxNorm: 018819 1 Tablet(s) PO QD for blood suga r 04/10/2015 04/15/2015 Inactive [Brand Copay Card: RxBIN:[id number] PCN:CRISTIANA RxGRP:[id number] ID#:[id number]] methocarbamol 750 mg tablet RxNorm: 847447 2 Tablet(s) PO TID as needed for muscle spasm 03/28/2015 08/15/2015 Inactive pravastatin 40 mg tablet RxNorm: 381313 1 Tablet(s) PO QD 03/19/2015 03/18/2015 Inactive pravastatin 40 mg tablet RxNorm: 026971 1 Tablet(s) PO QD 03/19/2015 06/14/2015 Inactive lactulose 10 gram/15 mL oral solution RxNorm: 582595 [address]s) PO QD 03/07/2015 01/09/2016 Inactive TAKE 1 TABLESPOON BY MOUTH ONCE DAILY oxycodone 20 mg tablet RxNorm: 9309326 1 Tablet(s) PO QID as nee ded for pain 03/05/2015 07/08/2015 Inactive Topamax 100 mg tablet RxNorm: 118946 1 Tablet(s) PO QHS TAKE ONE TABLET BY MOUTH AT BEDTIME 02/25/2015 02/12/2019 Inactive metformin ER 500 mg tablet,extended release 24 hr RxNorm: 86 0975 1 Tablet(s) PO QD 02/11/2015 03/04/2015 Inactive take one tablet by mouth every day Daliresp 500 mcg tablet RxNorm: 2719379 1 Tablet(s) PO QD 02/11/2015 08/09/2015 Inactive Endocet 10 mg-325 mg tablet RxNorm: 2511531 1 Tablet(s) PO Q4H as needed for pain 01/23/2015 01/23/2015 Inactive gabapentin 600 mg tablet RxNorm: 991404 1 Tablet(s) PO BID 01/23/20 15 04/11/2015 Inactive methocarbamol 750 mg tablet RxNorm: 172140 2 Tablet(s) PO TID as needed for muscle spasm 01/15/2015 02/13/2015 Inactive fluoxetine 40 mg capsule RxNorm: 155692 1 Capsule(s) PO QD 01/14/20 15 12/23/2015 Inactive TAKE ONE CAPSULE BY MOUTH EV JANKI MORNING fluoxetine 20 mg capsule RxNorm: 235077 1 Capsule(s) PO QD 01/14/20 15 12/23/2015 Inactive Premarin 0.45 mg tablet RxNorm: 629513 1 Tablet(s) PO QD 01/02/2015 0 07/01/2015 Inactive Endocet 10 mg-325 mg tablet RxNorm: 2047922 1-2 Tablet(s) PO Q4H 02/12/2019 Inactive PRN PAIN Duragesic 100 mcg/hr transdermal patch RxNorm: 997840 2 Application TD Q48H for pain 12/25/2014 01/23/2015 Inactive Topamax 100 mg tablet RxNorm: 710408 1 Tablet(s) PO QHS TAKE ONE TABLET BY MOUTH AT BEDTIME 12/25/2014 02/24/2015 Inactive Tudorza Pressair 400 mcg/actuation breath activated RxNorm: 9719468 1 BID INHALE ONE PUFF INTO LUNGS TWO TIMES A DAY 12/17/2014 05/15/2015 Inactive Endocet 10 mg-325 mg tablet RxNorm: 0494527 1-2 Tablet(s) PO Q4H 12/19/2014 Inactive PRN PAIN Duragesic 100 mcg/hr transdermal patch RxNorm: 203202 2 Application TD Q48H for pain 11/20/2014 12/24/2014 Inactive Ferfics Ultra Test strips RxNorm: TEST BLOOD SUGAR ONCE DAILY 250.00 11/16/2014 01/08/2016 Inactive omeprazole 40 mg capsule,delayed release RxNorm: 114080 1 Capsu le(s) PO QD 11/13/2014 11/12/2015 Inactive metformin ER 500 mg tablet,extended release 24 hr RxNorm: 86 0975 1 Tablet(s) PO QD 11/12/2014 02/11/2015 Inactive take one tablet by mouth every day Symbicort 160 mcg-4.5 mcg/actuation HFA aerosol inhaler RxNo rm: 0749786 2 Puff(s) INH BID 11/12/2014 03/11/2015 Inactive INHALE 2 PUFFS O RALLY TWO TIMES A DAY gabapentin 800 mg tablet RxNorm: 231203 1 Tablet(s) PO QD TAKE ONE TABLET BY MOUTH ONCE A DAY 10/22/2014 01/01/2015 Inactive Endocet 10 mg-325 mg tablet RxNorm: 9199434 1-2 Tablet(s) PO Q4H 11/15/2014 Inactive PRN PAIN Duragesic 100 mcg/hr transdermal patch RxNorm: 093741 2 Application TD Q48H for pain 10/17/2014 11/19/2014 Inactive gabapentin 800 mg tablet RxNorm: 457507 1 Tablet(s) PO QD TAKE ONE TABLET BY MOUTH ONCE A DAY 10/04/2014 10/21/2014 Inactive Premarin 0.9 mg tablet RxNorm: 472516 1 Tablet(s) PO QD TAKE ONE TABLET BY MOUTH ONCE A DAY 10/04/2014 01/01/2015 Inactive Spiriva with HandiHaler 18 mcg & inhalation capsules RxNorm: 373053 1 Capsule(s) INH QD 10/03/2014 04/30/2015 Inactive Levaquin 500 mg tablet RxNorm: 835560 1 Tablet(s) PO QD 10/03/2014 Inactive prednisone 20 mg tablet RxNorm: 765691 1 Tablet(s) PO QD 10/03/2014 1 12/09/2013 Inactive Duragesic 100 mcg/hr transdermal patch RxNorm: 843397 2 Application TD Q48H for pain 09/18/2014 10/16/2014 Inactive Endocet 10 mg-325 mg tablet RxNorm: 6160844 1-2 Tablet(s) PO Q4H 10/16/2014 Inactive PRN PAIN Synthroid 112 mcg tablet RxNorm: 763121 1 Tablet(s) QD 09/10/2014 Inactive Synthroid 112 mcg tablet RxNorm: 701973 TAKE ONE TABLET BY MOUTH ONE TIME A DAY. NEEDS LABS 09/10/2014 02/06/2015 Inactive omeprazole 40 mg capsule,delayed release RxNorm: 578307 1 Capsu le(s) PO QD 09/03/2014 11/13/2014 Inactive omeprazole 40 mg capsule,delayed release RxNorm: 842790 1 Capsu le(s) PO QD 09/03/2014 09/02/2014 Inactive Spiriva with HandiHaler 18 mcg & inhalation capsules RxNorm: 162178 1 Capsule(s) INH QD 08/27/2014 10/02/2014 Inactive gabapentin 600 mg tablet RxNorm: 878841 1 Tablet(s) PO BID 08/27/20 14 10/22/2014 Inactive Endocet 10 mg-325 mg tablet RxNorm: 7087564 1-2 Tablet(s) PO Q4H 09/17/2014 Inactive PRN PAIN fentanyl 100 mcg/hr transdermal patch RxNorm: 596026 1 Unit Dos e TD QD 08/21/2014 09/19/2014 Inactive Daliresp 500 mcg tablet RxNorm: 0140593 1 Tablet(s) PO QD 08/13/2014 02/11/2015 Inactive Synthroid 112 mcg tablet RxNorm: 073617 TAKE ONE TABLET BY MOUTH ONE TIME A DAY. NEEDS LABS 08/10/2014 09/10/2014 Inactive Endocet 10 mg-325 mg tablet RxNorm: 4379107 1-2 Tablet(s) PO Q4H 08/17/2014 Inactive PRN PAIN Duragesic 100 mcg/hr transdermal patch RxNorm: 129424 2 Application TD Q48H for pain 07/19/2014 09/17/2014 Inactive fluoxetine 40 mg capsule RxNorm: 924480 1 Capsule(s) PO QD 07/17/20 14 01/14/2015 Inactive TAKE ONE CAPSULE BY MOUTH EV JANKI MORNING fluoxetine 20 mg capsule RxNorm: 385296 1 Capsule(s) PO QD 07/17/20 14 01/14/2015 Inactive Spiriva with HandiHaler 18 mcg & inhalation capsules RxNorm: 370706 1 Capsule(s) INH QD 07/17/2014 08/26/2014 Inactive INHALE CONTENTS OF 1 CAPSULE(S) WITH HANDIHALER ONCE DAILY Zofran 4 mg tablet RxNorm: 577283 1 Tablet(s) PO Q4H prn nausea 07/25/2014 Inactive Synthroid 112 mcg tablet RxNorm: 073510 1 Tablet(s) PO QD 07/09/2014 07/09/2014 Inactive methocarbamol 750 mg tablet RxNorm: 618204 2 Tablet(s) PO TID as needed for muscle spasm 07/09/2014 09/06/2014 Inactive Synthroid 112 mcg tablet RxNorm: 951358 1 Tablet(s) PO QD - nee d labs 07/09/2014 08/07/2014 Inactive Medrol (Aníbal) 4 mg tablets in a dose pack RxNorm: 784759 6 Tablet(s) PO QD --then as directed 07/03/2014 07/08/2014 Inactive Tudorza Pressair 400 mcg/actuation breath activated RxNorm: 3774361 1 Puff(s) INH BID 07/03/2014 12/17/2014 Inactive cefdinir 300 mg capsule RxNorm: 356171 1 Capsule(s) PO BID 07/03/20 14 07/12/2014 Inactive Topamax 100 mg tablet RxNorm: 366726 Tablet(s) TAKE ONE TABLET BY MOUTH AT BEDTIME 07/02/2014 02/25/2015 Inactive Duragesic 100 mcg/hr transdermal patch RxNorm: 608008 2 Application TD Q48H for pain 06/25/2014 07/18/2014 Inactive Endocet 10 mg-325 mg tablet RxNorm: 7427511 1-2 Tablet(s) PO Q4H 07/18/2014 Inactive PRN PAIN metformin ER 500 mg tablet,extended release 24 hr RxNorm: 86 0975 1 Tablet(s) PO QD Needs labs 06/18/2014 07/01/2014 Inactive take one tablet by mouth every day Duragesic 100 mcg/hr transdermal patch RxNorm: 820429 2 Application TD Q48H for pain 05/22/2014 06/24/2014 Inactive Synthroid 112 mcg tablet RxNorm: 566769 1 Tablet(s) PO QD 05/22/2014 07/09/2014 Inactive Endocet 10 mg-325 mg tablet RxNorm: 2312362 1-2 Tablet(s) PO Q4H 06/20/2014 Inactive PRN PAIN Endocet 10 mg-325 mg tablet RxNorm: 7674263 1-2 Tablet(s) PO Q4H 05/21/2014 Inactive PRN PAIN Duragesic 100 mcg/hr transdermal patch RxNorm: 916861 2 Application TD Q48H for pain 04/25/2014 05/21/2014 Inactive Daliresp 500 mcg tablet RxNorm: 4840763 1 Tablet(s) PO QD 04/24/2014 08/13/2014 Inactive Symbicort 160 mcg-4.5 mcg/actuation HFA aerosol inhaler RxNo rm: 1622517 2 Puff(s) INH BID 04/24/2014 08/21/2014 Inactive INHALE 2 PUFFS O RALLY TWO TIMES A DAY metformin ER 500 mg tablet,extended release 24 hr RxNorm: 86 0975 1 Tablet(s) PO QD 04/24/2014 11/12/2014 Inactive TAKE ONE TABLET BY MOUTH EVERY DAY [AttnRPh:Saving Apply/Adjudicate RxGRP:LDMGRP RxBIN:[id number] RxPCN:2012 PCode:01 ID#:[id number]] Symbicort 160 mcg-4.5 mcg/actuation HFA aerosol inhaler RxNo rm: 7858117 2 Puff(s) INH BID 04/24/2014 11/12/2014 Inactive INHALE 2 PUFFS O RALLY TWO TIMES A DAY Premarin 0.9 mg tablet RxNorm: 045613 1 Tablet(s) PO QD 04/24/2014 Inactive TAKE ONE TABLET BY MOUTH EVERY DAY metformin ER 500 mg tablet,extended release 24 hr RxNorm: 86 0975 1 Tablet(s) PO QD Needs labs 04/24/2014 06/18/2014 Inactive TAKE ONE TABLET BY MOUTH EVERY DAY [AttnRPh:Saving Apply/Adjudicate RxGRP:LDMGRP RxBIN:[id number] RxPCN:2012 PCode:01 ID#:[id number]] gabapentin 800 mg tablet RxNorm: 000521 1 Tablet(s) PO QD 04/24/2014 10/04/2014 Inactive TAKE ONE TABLET BY MOUTH EVERY DAY Topamax 100 mg tablet RxNorm: 153478 1 Tablet(s) PO QHS 04/17/2014 Inactive Topamax 100 mg tablet RxNorm: 374584 TAKE ONE TABLET BY MOUTH A T BEDTIME 04/17/2014 07/01/2014 Inactive Tudorza Pressair 400 mcg/actuation breath activated RxNorm: 0013308 1 Puff(s) INH BID 04/11/2014 07/02/2014 Inactive Duragesic 100 mcg/hr transdermal patch RxNorm: 910584 2 Application TD Q48H for pain 03/27/2014 04/24/2014 Inactive Endocet 10 mg-325 mg tablet RxNorm: 9936882 1-2 Tablet(s) PO Q4H 04/24/2014 Inactive PRN PAIN Robaxin 750 mg tablet RxNorm: 102900 2 Tablet(s) PO TID as need ed for spasm 02/23/2014 03/28/2015 Inactive Duragesic 100 mcg/hr transdermal patch RxNorm: 682866 2 Application TD Q48H for pain 02/23/2014 No Stop Date Active Endocet 10 mg-325 mg tablet RxNorm: 9408685 1-2 Tablet(s) PO Q4H 03/23/2014 Inactive PRN PAIN Synthroid 112 mcg tablet RxNorm: 149789 1 Tablet(s) PO QD TAKE ONE TABLET BY MOUTH EVERY DAY 02/15/2014 05/22/2014 Inactive Zithromax 500 mg tablet RxNorm: 722610 1 Tablet(s) PO QD 01/30/2014 0 02/05/2014 Inactive Diflucan 100 mg tablet RxNorm: 991258 1 Tablet(s) PO QD 01/30/2014 Inactive prednisone 20 mg tablet RxNorm: 099580 1 Tablet(s) PO BID 01/30/2014 02/05/2014 Inactive fluoxetine 40 mg capsule RxNorm: 642200 1 Capsule(s) PO QD 01/23/20 14 07/16/2014 Inactive TAKE ONE CAPSULE BY MOUTH EV JANKI MORNING fluoxetine 40 mg capsule RxNorm: 230815 1 Capsule(s) PO QD 01/23/20 14 07/17/2014 Inactive TAKE ONE CAPSULE BY MOUTH EV JANKI MORNING cefdinir 300 mg capsule RxNorm: 452724 1 Capsule(s) PO BID 01/16/20 14 01/29/2014 Inactive Zithromax 500 mg tablet RxNorm: 165009 1 Tablet(s) PO QD 01/16/2014 0 01/22/2014 Inactive prednisone 20 mg tablet RxNorm: 266289 1 Tablet(s) PO BID 01/16/2014 01/22/2014 Inactive Spiriva with HandiHaler 18 mcg and inhalation capsules RxNor m: 034939 1 Capsule(s) INH QD 12/18/2013 07/17/2014 Inactive INHALE CONTENT S OF 1 CAPSULE(S) WITH HANDIHALER ONCE DAILY fluoxetine 20 mg capsule RxNorm: 367929 1 Capsule(s) PO QD 12/18/19 14 06/15/2014 Inactive Spiriva with HandiHaler 18 mcg & inhalation capsules RxNorm: 009482 1 Capsule(s) INH QD 12/18/2013 06/15/2014 Inactive INHALE CONTENTS OF 1 CAPSULE(S) WITH HANDIHALER ONCE DAILY fluoxetine 20 mg capsule RxNorm: 285386 1 Capsule(s) PO QD 12/18/19 14 07/17/2014 Inactive cefdinir 300 mg capsule RxNorm: 612403 2 Capsule(s) PO QD 12/12/2013 12/21/2013 Inactive Duragesic 100 mcg/hr transdermal patch RxNorm: 774886 2 Application TD Q48H for pain 12/08/2013 12/07/2013 Inactive Topamax 100 mg tablet RxNorm: 740690 1 Tablet(s) PO QHS 12/04/2013 Inactive Endocet 10 mg-325 mg tablet RxNorm: 7756384 1-2 Tablet(s) PO Q4H 12/26/2013 Inactive PRN PAIN Robaxin 750 mg tablet RxNorm: 986107 2 Tablet(s) PO TID as need ed for spasm 11/07/2013 01/05/2014 Inactive gabapentin 800 mg tablet RxNorm: 537940 1 Tablet(s) PO QD 10/16/2013 04/24/2014 Inactive TAKE ONE TABLET BY MOUTH EVERY DAY Symbicort 160 mcg-4.5 mcg/actuation HFA aerosol inhaler RxNo rm: 3680642 2 Puff(s) INH BID 10/16/2013 04/24/2014 Inactive INHALE 2 PUFFS O RALLY TWO TIMES A DAY Premarin 0.9 mg tablet RxNorm: 056714 1 Tablet(s) PO QD 10/16/2013 Inactive TAKE ONE TABLET BY MOUTH EVERY DAY metformin ER 500 mg tablet,extended release 24 hr RxNorm: 86 0975 1 Tablet(s) PO QD 10/16/2013 04/24/2014 Inactive TAKE ONE TABLET BY MOUTH EVERY DAY Daliresp 500 mcg tablet RxNorm: 2261300 1 Tablet(s) PO QD 10/16/2013 04/24/2014 Inactive Robaxin 750 mg tablet RxNorm: 484305 2 Tablet(s) PO TID as need ed for spasm 10/10/2013 11/06/2013 Inactive Duragesic 100 mcg/hr transdermal patch RxNorm: 684155 2 Application TD Q48H for pain 10/09/2013 No Stop Date Active Soma 350 mg tablet RxNorm: 772305 1 Tablet(s) PO TID 09/27/201310/09 Inactive TAKE ONE TABLET BY MOUTH THREE TIMES A D AY lactulose 10 gram/15 mL oral solution RxNorm: 277298 [address](s) PO QD 09/13/2013 03/07/2015 Inactive TAKE 1 TABLESPOON BY MOUTH ONCE DAILY Duragesic 100 mcg/hr transdermal patch RxNorm: 314488 2 Application TD Q48H for pain 09/06/2013 No Stop Date Active Endocet 10 mg-325 mg tablet RxNorm: 0935356 1-2 Tablet(s) PO Q4H 09/27/2013 Inactive PRN PAIN lancets 28 gauge RxNorm: Miscellaneous As needed for blo od glucose sticks 08/24/2013 No Stop Date Active 16.2 mg-0.1037 mg-0.0194 mg tablet RxNorm: 6500669 Tablet(s) PO PRN for gas and cramping 08/24/2013 01/19/2017 Inactive TAKE TWO TABLET S BY MOUTH THREE TIMES A DAY NEEDED FOR GAS AND CRAMPING Topamax 100 mg tablet RxNorm: 607260 1 Tablet(s) PO QHS 07/31/2013 Inactive Diflucan 100 mg tablet RxNorm: 916011 1 Tablet(s) PO QD 07/27/2013 Inactive cefdinir 300 mg capsule RxNorm: 617646 1 Capsule(s) PO BID 07/26/20 13 08/08/2013 Inactive Daliresp 500 mcg tablet RxNorm: 0468994 1 Tablet(s) PO QD 07/25/2013 10/15/2013 Inactive fluoxetine 40 mg capsule RxNorm: 067317 1 Capsule(s) PO QD 07/25/20 13 01/22/2014 Inactive TAKE ONE CAPSULE BY MOUTH EV JANKI MORNING Senokot-S 8.6 mg-50 mg tablet RxNorm: 9010174 1 Tablet(s) PO BID 10/25/2013 Inactive doxycycline hyclate 100 mg capsule RxNorm: 2806618 1 Capsule(s) PO BID 06/28/2013 07/07/2013 Inactive prednisone 20 mg tablet RxNorm: 995267 1 Tablet(s) PO BID 06/28/2013 07/04/2013 Inactive Zofran 4 mg tablet RxNorm: 323674 1 Tablet(s) PO Q4H prn nausea 03/201307/05/2013 Inactive Spiriva with HandiHaler 18 mcg & inhalation capsules RxNorm: 714408 1 Capsule(s) INH QD 06/26/2013 12/18/2013 Inactive INHALE CONTENTS OF 1 CAPSULE(S) WITH HANDIHALER ONCE DAILY Synthroid 112 mcg tablet RxNorm: 232195 1 Tablet(s) PO QD TAKE ONE TABLET BY MOUTH EVERY DAY 06/19/2013 02/15/2014 Inactive fluoxetine 20 mg capsule RxNorm: 366849 1 Capsule(s) PO QD 06/19/20 13 12/18/2013 Inactive Ventolin HFA 90 mcg/actuation Aerosol Inhaler RxNorm: 0150397 2 Puff(s) INH Q4H 06/05/2013 No Stop Date Active prn Soma 350 mg tablet RxNorm: 830364 1 Tablet(s) PO TID 06/05/201307/04 Inactive TAKE ONE TABLET BY MOUTH THREE TIMES A D AY prednisone 20 mg tablet RxNorm: 884917 1 Tablet(s) PO QD 05/31/2013 0 06/06/2013 Inactive Topamax 100 mg tablet RxNorm: 191893 1 Tablet(s) PO QHS 05/22/2013 Inactive Levaquin 500 mg tablet RxNorm: 672282 1 Tablet(s) PO QD 05/03/2013 Inactive Diflucan 100 mg tablet RxNorm: 924494 1 Tablet(s) PO QD 05/03/2013 Inactive Daliresp 500 mcg tablet RxNorm: 5864888 1 Tablet(s) PO QD 05/01/2013 07/24/2013 Inactive Daliresp 500 mcg tablet RxNorm: 6728978 1 Tablet(s) PO QD 05/01/2013 04/30/2013 Inactive gabapentin 800 mg tablet RxNorm: 936196 1 Tablet(s) PO QD 04/10/2013 10/06/2013 Inactive TAKE ONE TABLET BY MOUTH EVERY DAY metformin ER 500 mg tablet,extended release 24 hr RxNorm: 86 0977 1 Tablet(s) PO QD 04/10/2013 10/06/2013 Inactive TAKE ONE TABLET BY MOUTH EVERY DAY Premarin 0.9 mg tablet RxNorm: 180219 1 Tablet(s) PO QD 04/10/2013 Inactive TAKE ONE TABLET BY MOUTH EVERY DAY Symbicort 160 mcg-4.5 mcg/actuation HFA aerosol inhaler RxNo rm: 1756978 2 Puff(s) INH BID 04/10/2013 10/06/2013 Inactive INHALE 2 PUFFS O RALLY TWO TIMES A DAY Synthroid 112 mcg tablet RxNorm: 867672 1 Tablet(s) PO QD TAKE ONE TABLET BY MOUTH EVERY DAY 04/10/2013 06/18/2013 Inactive Ventolin HFA 90 mcg/actuation Aerosol Inhaler RxNorm: 418090 2 Puff(s) INH Q4H 04/10/2013 No Stop Date Active prn fentanyl 100 mcg/hr transdermal patch RxNorm: 850793 1 Unit Dos e TD QD 04/03/2013 05/02/2013 Inactive Endocet 10 mg-325 mg tablet RxNorm: 7263721 1-2 Tablet(s) PO Q4H 05/02/2013 Inactive PRN PAIN Topamax 100 mg tablet RxNorm: 996112 1 Tablet(s) PO QHS 03/13/2013 Inactive Reglan 10 mg tablet RxNorm: 874600 1 Tablet(s) PO QID b efore meals and at bedtime 03/13/2013 04/09/2015 Inactive fluoxetine 20 mg capsule RxNorm: 825780 1 Capsule(s) PO QD 02/28/20 13 05/27/2013 Inactive Ventolin HFA 90 mcg/actuation Aerosol Inhaler RxNorm: 741877 2 Puff(s) INH Q4H 02/13/2013 No Stop Date Active prn fluoxetine 40 mg capsule RxNorm: 176386 1 Capsule(s) PO QD 01/31/20 13 07/24/2013 Inactive TAKE ONE CAPSULE BY MOUTH EV JANKI MORNING Soma 350 mg tablet RxNorm: 136601 1 Tablet(s) PO TID 01/20/201302/18 Inactive TAKE ONE TABLET BY MOUTH THREE TIMES A D AY Endocet 10 mg-325 mg tablet RxNorm: 8817038 1-2 Tablet(s) PO Q4H 02/06/2013 Inactive PRN PAIN MS Contin 200 mg tablet,extended release RxNorm: 403168 1 Table t(s) PO BID 01/18/2013 02/06/2013 Inactive Ventolin HFA 90 mcg/actuation Aerosol Inhaler RxNorm: 707923 2 Puff(s) INH Q4H 01/04/2013 No Stop Date Active prn Spiriva with HandiHaler 18 mcg & inhalation capsules RxNorm: 394958 1 Capsule(s) INH QD 12/29/2012 06/25/2013 Inactive INHALE CONTENTS OF 1 CAPSULE(S) WITH HANDIHALER ONCE DAILY Spiriva with HandiHaler 18 mcg & inhalation capsules RxNorm: 509586 1 Capsule(s) INH QD 12/26/2012 12/28/2012 Inactive INHALE CONTENTS OF 1 CAPSULE(S) WITH HANDIHALER ONCE DAILY Synthroid 112 mcg tablet RxNorm: 754469 Tablet(s) PO TA KE ONE TABLET BY MOUTH EVERY DAY 12/26/2012 04/09/2013 Inactive Endocet 10 mg-325 mg tablet RxNorm: 6533281 1-2 Tablet(s) PO Q4H 01/17/2013 Inactive PRN PAIN MS Contin 200 mg tablet,extended release RxNorm: 319994 1 Table t(s) PO BID 12/21/2012 01/17/2013 Inactive fluoxetine 20 mg capsule RxNorm: 740904 1 Capsule(s) PO QD 12/06/19 13 02/26/2013 Inactive Synthroid 112 mcg tablet RxNorm: 675120 1 Tablet(s) PO QD 12/06/2012 02/12/2019 Inactive TAKE ONE TABLET BY MOUTH EVERY DAY Ventolin HFA 90 mcg/actuation Aerosol Inhaler RxNorm: 434566 2 Puff(s) INH Q4H 12/06/2012 No Stop Date Active prn Reglan 10 mg tablet RxNorm: 609705 1 Tablet(s) PO QID b efore meals and at bedtime 11/24/2012 03/12/2013 Inactive Topamax 100 mg tablet RxNorm: 806840 1 Tablet(s) PO QHS 11/16/2012 Inactive Ventolin HFA 90 mcg/actuation Aerosol Inhaler RxNorm: 954463 2 Puff(s) INH Q4H 11/09/2012 No Stop Date Active prn gabapentin 800 mg tablet RxNorm: 168281 1 Tablet(s) PO QD 10/27/2012 04/09/2013 Inactive TAKE ONE TABLET BY MOUTH EVERY DAY metformin ER 500 mg tablet,extended release 24 hr RxNorm: 86 0977 1 Tablet(s) PO QD 10/27/2012 04/09/2013 Inactive TAKE ONE TABLET BY MOUTH EVERY DAY Symbicort 160 mcg-4.5 mcg/actuation HFA Aerosol Inhaler RxNo rm: 9062412 2 Puff(s) INH BID 10/27/2012 04/09/2013 Inactive INHALE 2 PUFFS O RALLY TWO TIMES A DAY Premarin 0.9 mg tablet RxNorm: 886909 1 Tablet(s) PO QD 10/27/2012 Inactive TAKE ONE TABLET BY MOUTH EVERY DAY Endocet 10 mg-325 mg tablet RxNorm: 1694117 1-2 Tablet(s) PO Q4H 11/24/2012 Inactive PRN PAIN MS Contin 200 mg tablet,extended release RxNorm: 161892 1 Table t(s) PO BID 10/26/2012 11/24/2012 Inactive Soma 350 mg tablet RxNorm: 727193 1 Tablet(s) PO TID 10/04/201211/02 Inactive TAKE ONE TABLET BY MOUTH THREE TIMES A D AY Ventolin HFA 90 mcg/actuation Aerosol Inhaler RxNorm: 821509 2 Puff(s) INH Q4H 10/03/2012 No Stop Date Active prn Daliresp 500 mcg tablet RxNorm: 3223278 1 Tablet(s) PO QD 09/28/2012 09/27/2012 Inactive Daliresp 500 mcg tablet RxNorm: 5196526 1 Tablet(s) PO QD 09/28/2012 04/25/2013 Inactive fluoxetine 20 mg capsule RxNorm: 534931 1 Capsule(s) PO QD 09/05/2012/06/2012 Inactive Topamax 50 mg tablet RxNorm: 122051 Tablet(s) PO for 1w k then 1 po q HS for 1wk then 2 po q HS 08/29/2012 09/27/2012 Inactive TAKE 1/2 TABLET BY MOUTH AT BEDTIME FOR 1 WEEK, THEN 1 TABLET AT BEDTIME FOR 1 WEEK, THEN 2 TABLETS AT BEDTIME Topamax 100 mg tablet RxNorm: 457314 1 Tablet(s) PO QHS 08/29/2012 Inactive Ventolin HFA 90 mcg/actuation Aerosol Inhaler RxNorm: 537436 2 Puff(s) INH Q4H 08/19/2012 No Stop Date Active prn Ventolin HFA 90 mcg/actuation Aerosol Inhaler RxNorm: 221909 2 Puff(s) INH Q4H 08/15/2012 No Stop Date Active prn Synthroid 112 mcg tablet RxNorm: 996062 1 Tablet(s) PO QD 08/10/2012 11/07/2012 Inactive TAKE ONE TABLET BY MOUTH EVERY DAY Synthroid 112 mcg tablet RxNorm: 303296 1 Tablet(s) PO QD 08/01/2012 08/09/2012 Inactive TAKE ONE TABLET BY MOUTH EVERY DAY Reglan 10 mg tablet RxNorm: 717775 1 Tablet(s) PO QID b efore meals and at bedtime 08/01/2012 11/23/2012 Inactive fluoxetine 40 mg capsule RxNorm: 502150 1 Capsule(s) PO QD 08/01/20 12 01/27/2013 Inactive TAKE ONE CAPSULE BY MOUTH EV JANKI MORNING Ventolin HFA 90 mcg/actuation Aerosol Inhaler RxNorm: 294386 2 Puff(s) INH Q4H 08/01/2012 No Stop Date Active prn Soma 350 mg tablet RxNorm: 639181 1 Tablet(s) PO TID 07/20/201208/18 Inactive TAKE ONE TABLET BY MOUTH THREE TIMES A D AY Spiriva with HandiHaler 18 mcg & inhalation capsules RxNorm: 176230 1 Capsule(s) INH 07/01/2012 12/25/2012 Inactive INHALE CONTENTS OF 1 CAPSULE(S) WITH HANDIHALER ONCE DAILY Zithromax 250 mg Tab RxNorm: 235447 2 Tablet(s) PO QD 06/28/201206/22 Inactive MS Contin 200 mg tablet,extended release RxNorm: 970213 1 Table t(s) PO BID 06/28/2012 07/27/2012 Inactive Endocet 10 mg-325 mg tablet RxNorm: 6006480 1-2 Tablet(s) PO Q4H 07/27/2012 Inactive PRN PAIN Topamax 100 mg tablet RxNorm: 133439 1 Tablet(s) PO QHS 06/28/2012 Inactive 16.2 mg-0.1037 mg-0.0194 mg tablet RxNorm: 2112533 Tablet(s) PO PRN for gas and cramping 06/08/2012 08/23/2013 Inactive TAKE TWO TABLET S BY MOUTH THREE TIMES A DAY NEEDED FOR GAS AND CRAMPING Ventolin HFA 90 mcg/actuation Aerosol Inhaler RxNorm: 759681 2 Puff(s) INH Q4H 05/23/2012 No Stop Date Active prn Ventolin HFA 90 mcg/actuation Aerosol Inhaler RxNorm: 318192 2 Puff(s) INH Q4H 05/11/2012 No Stop Date Active prn Synthroid 112 mcg tablet RxNorm: 956232 1 Tablet(s) PO QD 05/09/2012 07/31/2012 Inactive TAKE ONE TABLET BY MOUTH EVERY DAY gabapentin 800 mg tablet RxNorm: 018565 1 Tablet(s) PO QD 05/09/2012 10/26/2012 Inactive TAKE ONE TABLET BY MOUTH EVERY DAY fluoxetine 40 mg capsule RxNorm: 285296 1 Capsule(s) PO QD 05/09/2007/31/2012 Inactive TAKE ONE CAPSULE BY MOUTH EV JANKI MORNING metformin ER 500 mg tablet,extended release 24 hr RxNorm: 86 0977 1 Tablet(s) PO QD 05/09/2012 10/26/2012 Inactive TAKE ONE TABLET BY MOUTH EVERY DAY Premarin 0.9 mg tablet RxNorm: 898194 1 Tablet(s) PO QD 05/09/2012 Inactive TAKE ONE TABLET BY MOUTH EVERY DAY Symbicort 160 mcg-4.5 mcg/actuation HFA Aerosol Inhaler RxNo rm: 5312945 2 Puff(s) INH BID 05/09/2012 10/26/2012 Inactive INHALE 2 PUFFS O RALLY TWO TIMES A DAY Endocet 10 mg-325 mg Tab RxNorm: 8994795 1-2 Tablet(s) PO Q4H 04/2705/26/2012 Inactive PRN PAIN MS Contin 200 mg Tab RxNorm: 237536 1 Tablet(s) PO BID 04/26/201202/2012 Inactive Ventolin HFA 90 mcg/actuation Aerosol Inhaler RxNorm: 142497 2 Puff(s) INH Q4H 04/25/2012 05/10/2012 Inactive prn Soma 350 mg tablet RxNorm: 330621 2 Tablet(s) PO TID 04/19/201207/19 Inactive TAKE ONE TABLET BY MOUTH THREE TIMES A D AY Ventolin HFA 90 mcg/actuation Aerosol Inhaler RxNorm: 736185 2 Puff(s) INH Q4H 04/12/2012 04/24/2012 Inactive prn Reglan 10 mg tablet RxNorm: 773543 1 Tablet(s) PO QID b efore meals and at bedtime 04/11/2012 07/31/2012 Inactive MS Contin 200 mg Tab RxNorm: 617709 1 Tablet(s) PO BID 03/30/201202/2012 Inactive Endocet 10 mg-325 mg Tab RxNorm: 0730796 1-2 Tablet(s) PO Q4H 03/3004/26/2012 Inactive PRN PAIN MS Contin 200 mg Tab RxNorm: 157094 1 Tablet(s) PO BID 03/02/201206/2012 Inactive Endocet 10 mg-325 mg Tab RxNorm: 4346033 1-2 Tablet(s) PO Q4H 03/0203/29/2012 Inactive PRN PAIN Daliresp 500 mcg tablet RxNorm: 1624740 1 Tablet(s) PO QD 03/01/2012 09/28/2012 Inactive MS Contin 200 mg Tab RxNorm: 550556 1 Tablet(s) PO BID 02/02/201208/2012 Inactive Endocet 10 mg-325 mg Tab RxNorm: 9709853 1-2 Tablet(s) PO Q4H 02/0103/01/2012 Inactive PRN PAIN fluoxetine 40 mg capsule RxNorm: 459695 1 Capsule(s) PO QD 02/02/2008/01/2012 Inactive TAKE ONE CAPSULE BY MOUTH EV JANKI MORNING Synthroid 112 mcg Tab RxNorm: 115180 1 Tablet(s) PO QD 01/18/2012 Inactive TAKE ONE TABLET BY MOUTH EVERY DAY lactulose 10 gram/15 mL oral solution RxNorm: 725031 [address]s) PO QD 01/18/2012 No Stop Date Active TAKE 1 TABLESPOON BY MOUTH ONCE DAILY Ventolin HFA 90 mcg/actuation Aerosol Inhaler RxNorm: 603026 2 Puff(s) INH Q4H 01/18/2012 04/11/2012 Inactive prn MS Contin 200 mg Tab RxNorm: 415704 1 Tablet(s) PO BID 01/05/201210/2012 Inactive Endocet 10 mg-325 mg Tab RxNorm: 2787095 1-2 Tablet(s) PO Q4H 01/0502/01/2012 Inactive PRN PAIN ProAir HFA 90 mcg/Actuation Aerosol Inhaler RxNorm: 057809 2 Pu ff(s) INH Q4H 12/21/2011 No Stop Date Active prn for wheezing or shortness of breath Spiriva with HandiHaler 18 mcg & inhalation Caps RxNorm: 580 261 1 Capsule(s) INH 12/21/2011 06/30/2012 Inactive INHALE CONTENTS OF 1 CAPSULE(S) WITH HANDIHALER ONCE DAILY Reglan 10 mg Tab RxNorm: 629493 1 Tablet(s) PO QID before meals and at bedtime 12/21/2011 04/10/2012 Inactive Synthroid 112 mcg Tab RxNorm: 022719 1 Tablet(s) PO QD 12/21/2011 Inactive TAKE ONE TABLET BY MOUTH EVERY DAY Endocet 10 mg-325 mg Tab RxNorm: 7787680 1-2 Tablet(s) PO Q4H 11/2512/24/2011 Inactive PRN PAIN MS Contin 200 mg Tab RxNorm: 578913 1 Tablet(s) PO BID 11/25/201112/2011 Inactive lactulose 10 gram/15 mL Oral Soln RxNorm: 525246 Milliliter(s) PO 1 No Stop Date Active TAKE 1 TABLESPOON BY MOUTH O NCE DAILY lactulose 10 gram/15 mL Oral Soln RxNorm: 914748 Milliliter(s) PO 1 12/12/2010 11/20/2011 Inactive TAKE 1 TABLESPOON BY MOUTH O NCE DAILY Premarin 0.9 mg Tab RxNorm: 632581 1 Tablet(s) PO QD 10/12/201105/08 Inactive TAKE ONE TABLET BY MOUTH EVERY DAY fluoxetine 20 mg capsule RxNorm: 540344 1 Capsule(s) PO QD 10/12/2009/05/2012 Inactive TAKE ONE CAPSULE BY MOUTH EV JANKI DAY Synthroid 112 mcg Tab RxNorm: 105756 1 Tablet(s) PO QD 10/12/2011 Inactive TAKE ONE TABLET BY MOUTH EVERY DAY metformin ER 500 mg 24 hr Tab RxNorm: 173143 1 Tablet(s) PO QD 09/2311/10/2011 Inactive TAKE ONE TABLET BY MOUTH GLYNN RY DAY Synthroid 112 mcg Tab RxNorm: 341483 1 Tablet(s) PO QD 10/12/2011 Inactive TAKE ONE TABLET BY MOUTH EVERY DAY metformin ER 500 mg 24 hr Tab RxNorm: 089765 1 Tablet(s) PO QD 09/2310/11/2011 Inactive TAKE ONE TABLET BY MOUTH GLYNN Prevacid 30 mg Cap RxNorm: 572962 Capsule(s) PO 10/12/2011 01/25/2012 Inactive TAKE ONE CAPSULE BY MOUTH EVERY DAY Symbicort 160 mcg-4.5 mcg/actuation HFA Aerosol Inhaler RxNo rm: 3009645 2 Puff(s) INH BID 10/12/2011 05/08/2012 Inactive INHALE 2 PUFFS O RALLY TWO TIMES A DAY gabapentin 800 mg Tab RxNorm: 053007 1 Tablet(s) PO QD 10/12/2011 Inactive TAKE ONE TABLET BY MOUTH EVERY DAY MS Contin 200 mg Tab RxNorm: 737122 1 Tablet(s) PO BID 09/23/201111/2010 Inactive Endocet 10 mg-325 mg Tab RxNorm: 3639970 1-2 Tablet(s) PO Q4H 09/2310/22/2011 Inactive PRN PAIN Endocet 10 mg-325 mg Tab RxNorm: 4714731 1-2 Tablet(s) PO Q4H 08/2109/19/2011 Inactive PRN PAIN MS Contin 200 mg Tab RxNorm: 355459 1 Tablet(s) PO BID 08/21/2011 Inactive Diflucan 100 mg Tab RxNorm: 947009 1 Tablet(s) PO QD 08/10/201108/16 Inactive cefdinir 300 mg Cap RxNorm: 576452 2 Capsule(s) PO QD 08/10/201107/24 Inactive Reglan 10 mg Tab RxNorm: 286238 1 Tablet(s) PO AC & HS 07/15/2011 Inactive Endocet 10 mg-325 mg Tab RxNorm: 0918646 1-2 Tablet(s) PO Q4H 07/1508/13/2011 Inactive PRN PAIN One Touch Ultra Test strips RxNorm: Miscellaneous BID 06/11/2011 1 01/16/2014 Inactive TEST TWO TIMES A DAY lactulose 10 gram/15 mL Oral Soln RxNorm: 842447 Milliliter(s) PO 0 06/10/2011 10/11/2011 Inactive TAKE 1 TABLESPOON BY MOUTH O NCE DAILY Chantix Continuing Month Aníbal 1 mg Tab RxNorm: 248526 Tablet(s) PO 0 06/10/2011 11/02/2011 Inactive TAKE DIRECTED - PER PACK[employer] GE INSTRUCTIONS fluoxetine 40 mg Cap RxNorm: 359981 Capsule(s) PO 06/10/2011 02/02/20 Inactive TAKE ONE CAPSULE BY MOUTH EVERY MORNING Chantix Continuing Month Aníbal 1 mg Tab RxNorm: 460499 Ta blet(s) PO TAKE DIRECTED - PER PACKAGE INSTRUCTIONS 05/13/2011 06/09/2011 Inactive Soma 350 mg Tab RxNorm: 445612 Tablet(s) PO TAKE ON E TABLET BY MOUTH THREE TIMES A DAY 05/13/2011 04/18/2012 Inactive Chantix Continuing Month Aníbal 1 mg Tab RxNorm: 702169 Ta blet(s) PO as directed per package instructions. 04/22/2011 05/12/2011 Inactive Symbicort 160 mcg-4.5 mcg/Actuation HFA Aerosol Inhaler RxNo rm: 3427227 HFA Aerosol Inhaler INH INHALE 2 PUFFS ORALLY TWO TIMES A DAY 04/13/2011 Inactive Synthroid 112 mcg Tab RxNorm: 978867 Tablet(s) PO TAKE ONE TABLET BY MOUTH EVERY DAY 04/13/2011 10/12/2011 Inactive Premarin 0.9 mg Tab RxNorm: 679382 Tablet(s) PO TAKE ON E TABLET BY MOUTH EVERY DAY 04/13/2011 10/12/2011 Inactive gabapentin 800 mg Tab RxNorm: 131875 Tablet(s) PO TAKE ONE TABLET BY MOUTH EVERY DAY 04/13/2011 10/12/2011 Inactive Prevacid 30 mg Cap RxNorm: 886950 1 Capsule(s) PO QD 04/13/201110/11 Inactive Spiriva with HandiHaler 18 mcg & inhalation Caps RxNorm: 580 261 Capsule(s) INH INHALE CONTENTS OF 1 CAPSULE(S) WITH HANDIHALER ONCE DAILY 04/13/2011 12/21/2011 Inactive metformin ER 500 mg 24 hr Tab RxNorm: 777844 Tablet(s) PO TAKE ONE TABLET BY MOUTH EVERY DAY 04/13/2011 10/12/2011 Inactive Soma 350 mg Tab RxNorm: 017871 1 Tablet(s) PO QID 03/30/2011 02/13/20 19 Inactive fluoxetine 20 mg Cap RxNorm: 046331 Capsule(s) PO TAKE ONE CAPSULE BY MOUTH EVERY DAY 03/25/2011 10/12/2011 Inactive cefdinir 300 mg Cap RxNorm: 426295 2 Capsule(s) PO QD 03/19/201105/2011 Inactive 16.2 mg-0.1037 mg-0.0194 mg Tab RxNorm: 8999418 2 Tablet(s) PO TID PRN for gas and cramping 03/16/2011 07/13/2011 Inactive Soma 350 mg Tab RxNorm: 689246 2 Tablet(s) PO TID 03/16/2011 03/29/20 11 Inactive Chantix Starting Month Aníbal 0.5 mg (11)-1 mg (3x14) Tab s in a Dose Pack RxNorm: 918844 Tablet(s) PO as directed 03/02/2011 No Stop Date Active diazepam 10 mg Tab RxNorm: 822065 1 Tablet(s) PO BID 02/10/201101/19 Inactive Zofran 4 mg tablet RxNorm: 969743 1 Tablet(s) PO Q4H prn nausea 02/16/2011 Inactive Diflucan 100 mg Tab RxNorm: 095582 1 Tablet(s) PO QD 01/18/201101/24 Inactive Premarin 0.625 mg/g Vaginal Cream RxNorm: 237152 VAG In sert 1gm vaginally at bedtime 3 times weekly 01/18/2011 02/12/2019 Inactive loratadine 10 mg Tab RxNorm: 5023974 1 Tablet(s) PO QD 12/17/201003/2012 Inactive Spiriva with HandiHaler 18 mcg & inhalation Caps RxNorm: 580 261 1 Capsule(s) INH QD 12/17/2010 04/12/2011 Inactive Diflucan 100 mg Tab RxNorm: 909093 1 Tablet(s) PO QD 12/17/201012/23 Inactive diazepam 10 mg Tab RxNorm: 159684 1 Tablet(s) PO BID and PRN 201002/12/2019 Inactive One Touch Ultra Test Strips RxNorm: InVt BID Zainab t blood sugar at least twice daily. 11/11/2010 06/11/2011 Inactive fluoxetine 40 mg Cap RxNorm: 414775 1 Capsule(s) PO QAM 11/11/2010 Inactive diazepam 10 mg Tab RxNorm: 678093 1 Tablet(s) PO BID and PRN 200911/12/2010 Inactive Bactrim DS 800 mg-160 mg Tab RxNorm: 792047 1 Tablet(s) PO BID 09/2210/15/2010 Inactive fluoxetine 20 mg Cap RxNorm: 758488 1 Capsule(s) PO QD 10/02/201008/2011 Inactive Bactrim DS 800 mg-160 mg Tab RxNorm: 187989 1 Tablet(s) PO BID 01/201010/03/2010 Inactive Zofran 4 mg Tab RxNorm: 150769 1 Tablet(s) PO Q4H prn nausea 200910/16/2010 Inactive 16.2 mg-0.1037 mg-0.0194 mg Tab RxNorm: 3301724 2 Tablet(s) PO TID PRN for gas and cramping 09/17/2010 10/21/2010 Inactive Gabapentin 800 mg Tab RxNorm: 938446 1 Tablet(s) PO QD 09/16/2010 Inactive ProAir HFA 90 mcg/Actuation Aerosol Inhaler RxNorm: 937968 2 Puff(s) INH Q4H prn shortness of breath 09/15/2010 12/13/2010 Inactive gabapentin 800 mg Tab RxNorm: 944026 1 Tablet(s) PO QD 09/15/2010 Inactive Prevacid 30 mg Cap RxNorm: 050857 1 Capsule(s) PO QD 09/15/201004/12 Inactive loratadine 10 mg Tab RxNorm: 1660202 1 Tablet(s) PO QD 09/15/2010 Inactive Premarin 0.9 mg Tab RxNorm: 756572 1 Tablet(s) PO QD 09/15/201004/12 Inactive Synthroid 112 mcg Tab RxNorm: 287776 1 Tablet(s) PO QD 09/15/2010 Inactive metformin ER 500 mg 24 hr Tab RxNorm: 452522 1 Tablet(s) PO QD 08/2304/12/2011 Inactive Symbicort 160 mcg-4.5 mcg/Actuation Inhalation HFA Aer osol Inhaler RxNorm: 5735797 2 Puff(s) INH BID 09/15/2010 04/12/2011 Inactive diazepam 10 mg Tab RxNorm: 094924 1 Tablet(s) PO BID and PRN 200910/13/2010 Inactive Phentermine 37.5 mg Cap RxNorm: 167961 1 Capsule(s) PO QD 09/02/2010 11/02/2011 Inactive ProAir HFA 90 mcg/Actuation Aerosol Inhaler RxNorm: 044187 2 Puff(s) INH Q4H prn shortness of breath 08/07/2010 No Stop Date Active Premarin 0.9 mg Tab RxNorm: 523365 1 Tablet(s) PO QD 08/07/201009/14 Inactive Loratadine 10 mg Tab RxNorm: 8539560 1 Tablet(s) PO QD 08/07/2010 Inactive Lactulose 10 gram/15 mL Oral Soln RxNorm: 525942 1 Unit Dose PO QD 08/07/2010 02/12/2019 Inactive Zofran 4 mg Tab RxNorm: 275444 1 Tablet(s) PO Q4H prn nausea 2009 No Stop Date Active Gabapentin 800 mg Tab RxNorm: 242985 1 Tablet(s) PO QD 08/07/2010 Inactive Synthroid 112 mcg Tab RxNorm: 565542 1 Tablet(s) PO QD 08/07/2010 Inactive Metformin ER 500 mg 24 hr Tab RxNorm: 874450 1 Tablet(s) PO QD 07/2309/14/2010 Inactive Vitamin D 1,000 unit Tab RxNorm: 884133 1 Tablet(s) PO TID 08/07/2002/12/2019 Inactive Symbicort 160 mcg-4.5 mcg/Actuation Inhalation HFA Aer osol Inhaler RxNorm: 2780922 2 Puff(s) INH BID 08/07/2010 09/14/2010 Inactive Prevacid 30 mg Cap RxNorm: 778968 1 Capsule(s) PO QD 08/07/201009/14 Inactive Metformin ER 500 mg 24 hr Tab RxNorm: 774512 1 Tablet(s) PO QD 06/2308/06/2010 Inactive Vitamin D 1,000 unit Tab RxNorm: 952115 1 Tablet(s) PO TID 07/14/2008/06/2010 Inactive Synthroid 112 mcg Tab RxNorm: 016517 1 Tablet(s) PO QD 07/14/2010 Inactive Lactulose 10 gram/15 mL Oral Soln RxNorm: 120799 1 Unit Dose PO QD 07/14/2010 08/06/2010 Inactive Levaquin 500 mg Tab RxNorm: 318190 1 Tablet(s) PO QD 07/14/201007/27 Inactive Premarin 0.9 mg Tab RxNorm: 946762 1 Tablet(s) PO QD 07/14/201008/06 Inactive ProAir HFA 90 mcg/Actuation Aerosol Inhaler RxNorm: 199153 2 Puff(s) INH Q4H prn shortness of breath 07/14/2010 No Stop Date Active Prevacid 30 mg Cap RxNorm: 891702 1 Capsule(s) PO QD 07/14/201008/06 Inactive Zofran 4 mg Tab RxNorm: 107022 1 Tablet(s) PO Q4H prn nausea 2009 No Stop Date Active Symbicort 160 mcg-4.5 mcg/Actuation Inhalation HFA Aer osol Inhaler RxNorm: 9494543 2 Puff(s) INH BID 07/14/2010 08/06/2010 Inactive Loratadine 10 mg Tab RxNorm: 3580610 1 Tablet(s) PO QD 07/14/2010 Inactive Gabapentin 800 mg Tab RxNorm: 386538 1 Tablet(s) PO QD 07/14/2010 Inactive Metformin ER 500 mg 24 hr Tab RxNorm: 312564 1 Tablet(s) PO 010 07/13/2010 Inactive Diazepam 10 mg Tab RxNorm: 216481 1 Tablet(s) PO BID and PRN 200909/06/2010 Inactive Premarin 0.9 mg Tab RxNorm: 409829 1 Tablet(s) PO QD 06/09/201007/13 Inactive Zofran 4 mg Tab RxNorm: 068177 1 Tablet(s) PO Q4H prn nausea 2009 No Stop Date Active ProAir HFA 90 mcg/Actuation Aerosol Inhaler RxNorm: 606467 2 Puff(s) INH Q4H prn shortness of breath 06/09/2010 No Stop Date Active Gabapentin 800 mg Tab RxNorm: 194711 1 Tablet(s) PO QD 06/09/2010 Inactive Loratadine 10 mg Tab RxNorm: 5472792 1 Tablet(s) PO QD 06/09/2010 Inactive Lactulose 10 gram/15 mL Oral Soln RxNorm: 773105 1 Unit Dose PO QD 06/09/2010 07/13/2010 Inactive Prevacid 30 mg Cap RxNorm: 492213 1 Capsule(s) PO QD 06/09/201007/13 Inactive Synthroid 112 mcg Tab RxNorm: 261448 1 Tablet(s) PO QD 06/09/2010 Inactive Symbicort 160 mcg-4.5 mcg/Actuation Inhalation HFA Aer osol Inhaler RxNorm: 4839687 2 Puff(s) INH BID 06/09/2010 07/13/2010 Inactive Omnicef 300 mg Cap RxNorm: 514570 2 Capsule(s) PO QD 05/07/201005/20 Inactive Metformin 500 mg Tab RxNorm: 369540 1 Tablet(s) PO QD 05/06/201005/22 Inactive ProAir HFA 90 mcg/Actuation Aerosol Inhaler RxNorm: 524325 2 Puff(s) INH Q4H prn shortness of breath 05/06/2010 No Stop Date Active lactulose 10 gram/15 mL Oral Soln RxNorm: 067446 1 Unit Dose PO QD 05/06/2010 06/10/2011 Inactive Loratadine 10 mg Tab RxNorm: 5637672 1 Tablet(s) PO QD 05/06/2010 Inactive Synthroid 112 mcg Tab RxNorm: 211589 1 Tablet(s) PO QD 05/06/2010 Inactive Symbicort 160 mcg-4.5 mcg/Actuation Inhalation HFA Aer osol Inhaler RxNorm: 2979454 2 Puff(s) INH BID 05/06/2010 06/08/2010 Inactive Gabapentin 800 mg Tab RxNorm: 840104 1 Tablet(s) PO QD 05/06/2010 Inactive 16.2 mg-0.1037 mg-0.0194 mg Tab RxNorm: 1386097 2 Tablet(s) PO TID PRN for gas and cramping 05/06/2010 05/12/2010 Inactive Zofran 4 mg Tab RxNorm: 750180 1 Tablet(s) PO Q4H prn nausea 200904/13/2010 Inactive MS Contin 60 mg Tab RxNorm: 625730 3 Tablet(s) PO BID 04/09/201004/22 Inactive Soma 350 mg Tab RxNorm: 870298 2 Tablet(s) PO TID 04/09/2010 05/08/20 10 Inactive Symbicort 160 mcg-4.5 mcg/Actuation Inhalation HFA Aer osol Inhaler RxNorm: 8551752 2 Puff(s) INH BID 04/08/2010 05/05/2010 Inactive Doxycycline 100 mg Cap RxNorm: 0916993 1 Capsule(s) PO BID 04/08/20 10 04/17/2010 Inactive Triamterene-Hydrochlorothiazide 37.5 mg-25 mg Cap RxNorm: 19 8316 1 Capsule(s) PO QAM 04/08/2010 09/04/2010 Inactive fluoxetine 40 mg Cap RxNorm: 030245 1 Capsule(s) PO QAM 04/08/2010 Inactive Morphine SR 120 mg multiphase 24 hr Cap RxNorm: 924693 1 Capsul e(s) PO 03/11/2010 04/07/2010 Inactive Endocet 10 mg-325 mg Tab RxNorm: 2736141 1-2 Tablet(s) PO Q4H LA N PAIN 03/11/2010 04/09/2010 Inactive Savella 100 mg Tab RxNorm: 508756 1 Tablet(s) PO BID 03/10/201004/09 Inactive Soma 350 mg Tab RxNorm: 933380 1 Tablet(s) PO TID prn spasm 010 04/09/2010 Inactive Savella 100 mg Tab RxNorm: 576985 1 Tablet(s) PO BID 02/03/201004/09 Inactive Aspirin 81 mg Tab RxNorm: 663277 1 Tablet(s) PO QD No Start Date Active Zyrtec 10 mg Tab RxNorm: 3511939 1 Tablet(s) PO QD No Start Date Active One Touch Ultra Test Strips RxNorm: Misc test at least t wice daily. No Start Date Active coenzyme Q10 200 mg capsule RxNorm: 146925 1 Capsule(s) PO QD No Star t Date Active One Touch Ultra Test Strips RxNorm: InVt BID Zainab t blood sugar at least twice daily. No Start Date 11/10/2010 Inactive Gabapentin 800 mg Tab RxNorm: 117725 1 Tablet(s) PO QD No Start Date 05/05/2010 Inactive Abilify 5 mg tablet RxNorm: 546094 1 Tablet(s) PO QD No Start Date Inactive Chantix 1 mg Tab RxNorm: 756027 1 Tablet(s) PO BID No Start Date 10/22 Inactive Ozempic 0.25 mg or 0.5 mg (2 mg/1.5 mL) subcutaneous p en injector RxNorm: 0280484 .25 Milligram(s) SQ QW No Start Date 07/04/2019 Inactive lancets 28 gauge RxNorm: Miscellaneous As needed for blo od glucose sticks No Start Date 08/23/2013 Inactive potassium chloride ER 20 mEq tablet,extended release RxNorm: 949737 2 Tablet(s) PO QD No Start Date 09/26/2018 Inactive Ventolin HFA 90 mcg/actuation Aerosol Inhaler RxNorm: 213277 2 Puff(s) INH Q4H prn No Start Date 01/17/2012 Inactive potassium chloride ER 20 mEq tablet,extended release RxNorm: 398211 2 Tablet(s) PO QD No Start Date 10/19/2018 Inactive Januvia 100 mg tablet RxNorm: 401842 1 Tablet(s) PO QD No Start Date 09/10/2015 Inactive Medrol (Aníbal) 4 mg Tabs in a Dose Pack RxNorm: 589801 Tablet(s) PO N o Start Date 08/09/2011 Inactive as directed Zithromax Z-Aníbal 250 mg Tab RxNorm: 700056 Tablet(s) PO No Start Date 01/25/2012 Inactive as directed vitamin B6-vitamin E-magnesium tablet RxNorm: 1 Tablet(s ) PO QHS with INH No Start Date 03/30/2018 Inactive prednisone 20 mg Tab RxNorm: 342170 1 Tablet(s) PO TID for 1wk then 1 po BID for 1wk No Start Date 01/25/2012 Inactive furosemide 40 mg tablet RxNorm: 081077 1 Tablet(s) PO QAM No Start Date 10/09/2018 Inactive Vitamin D3 1000 units Capsule RxNorm: 1 Capsule(s) PO TID No S tart Date 03/19/2015 Inactive Zofran 4 mg Tab RxNorm: 099691 1 Tablet(s) PO Q4H prn nausea No Sta rt Date 04/13/2010 Inactive Premarin 0.625 mg/g Vaginal Cream RxNorm: 489497 1 Gram (s) VAG QHS 3 times a week No Start Date 09/22/2017 Inactive oxycodone 10 mg tablet RxNorm: 3717574 1-2 Tablet(s) PO QID as n eeded for pain No Start Date 11/04/2015 Inactive Nicoderm CQ 21 mg/24 hr daily Patch RxNorm: 872816 1 Applicatio n TD QD No Start Date 08/05/2015 Inactive Topamax 50 mg tablet RxNorm: 777679 1/2 Tablet(s) PO QH S for 1wk then 1 po q HS for 1wk then 2 po q HS No Start Date 06/27/2012 Inactive Chantix Starting Month Aníbal 0.5 mg (11)-1 mg (3x14) Tab s in a Dose Pack RxNorm: 590457 Tablet(s) PO as directed No Start Date 03/01/2011 Inactive Trulicity 0.75 mg/0.5 mL subcutaneous pen injector RxNorm: 1 715713 Milliliter(s) SQ No Start Date 07/04/2019 Inactive Medrol (Aníbal) 4 mg Tabs in a Dose Pack RxNorm: 075703 Tablet(s) PO N o Start Date 01/25/2012 Inactive as directed Duragesic 100 mcg/hr Transderm Patch RxNorm: 413936 2 A pplication TD Q48H for pain No Start Date 09/05/2013 Inactive Premarin 0.9 mg Tab RxNorm: 342877 1 Tablet(s) PO QD No Start Date Inactive Zithromax Z-Aníbal 250 mg Tab RxNorm: 548163 Tablet(s) PO as direc chinmay No Start Date 01/25/2012 Inactive ondansetron 8 mg disintegrating tablet RxNorm: 940970 1 Tablet(s) PO Q6H as needed No Start Date 10/10/2018 Inactive oxycodone 15 mg tablet RxNorm: 5329827 1 Tablet(s) PO QID as nee ded for pain No Start Date 03/05/2019 Inactive ProAir HFA 90 mcg/Actuation Aerosol Inhaler RxNorm: 043791 2 Puff(s) INH Q4H prn for wheezing or shortness of breath No Start Date 12/21/2011 Inactive pravastatin 40 mg tablet RxNorm: 081820 1/2 Tablet(s) PO QOD No Sta rt Date 04/09/2015 Inactive ipratropium-albuterol 0.5 mg-3 mg(2.5 mg base)/3 mL ne bulization soln RxNorm: 0109416 1 Unit Dose INH Q4H as needed No Start Date 09/09/2016 Inactive furosemide 40 mg tablet RxNorm: 884234 1 Tablet(s) PO QAM as ne eded No Start Date 09/24/2019 Inactive Vitamin D2 oral RxNorm: 4018 oral No Start Date 03/18/2015 Inacti ve pravastatin 40 mg tablet RxNorm: 834915 1/2 Tablet(s) PO QD No Star t Date 04/09/2015 Inactive ondansetron HCl 4 mg tablet RxNorm: 711978 1 Tablet(s) PO Q4H as needed for nausea and vomiting No Start Date 04/07/2016 Inactive furosemide 40 mg tablet RxNorm: 056038 2 Tablet(s) PO QAM No Start Date 09/26/2018 Inactive gabapentin 800 mg tablet RxNorm: 536324 1/2 Tablet(s) PO BID No Sta rt Date 06/21/2017 Inactive gabapentin 800 mg tablet RxNorm: 081760 1/2 Tablet(s) PO BID No Sta rt Date 07/05/2017 Inactive ProAir HFA 90 mcg/Actuation Aerosol Inhaler RxNorm: 399325 2 Puff(s) INH Q4H prn shortness of breath No Start Date 05/05/2010 Inactive scopolamine 1 mg over 3 days transdermal patch RxNorm: 89677 2 1 Application TD behind ear. Take off after three days No Start Date 10/10/2018 Inactive Metformin 500 mg Tab RxNorm: 764848 1 Tablet(s) PO QD No Start Date 0 05/05/2010 Inactive MS Contin 200 mg Tab RxNorm: 660489 1 Tablet(s) PO BID No Start Date 08/20/2011 Inactive Belladonna-Phenobarbital 48 mg tablet,extended release RxNor m: 2 Tablet(s) PO TID No Start Date 06/04/2016 Inactive Synthroid 112 mcg Tab RxNorm: 808884 1 Tablet(s) PO QD No Start Date 05/05/2010 Inactive Zegerid 40 mg-1.1 gram Cap RxNorm: 660246 1 Capsule(s) PO QD No Sta rt Date 01/25/2012 Inactive Premarin 0.625 mg/g Vaginal Cream RxNorm: 122109 VAG In sert 1gm vaginally at bedtime 3 times weekly No Start Date 01/17/2011 Inactive potassium chloride ER 20 mEq tablet,extended release RxNorm: 330321 1 Tablet(s) PO QD No Start Date 04/24/2019 Inactive methocarbamol 750 mg tablet RxNorm: 774805 2 Tablet(s) PO TID as needed for muscle spasm No Start Date 07/08/2014 Inactive Biaxin XL Aníbal 500 mg 24 hr Tab RxNorm: 795213 Tablet(s) PO as d irected No Start Date 04/24/2013 Inactive Vitamin D3 1,000 unit tablet RxNorm: 394196 3 Tablet(s) PO QD No St art Date 06/01/2017 Inactive Morphine SR 120 mg multiphase 24 hr Cap RxNorm: 816748 1 Capsul e(s) PO BID No Start Date 04/09/2010 Inactive Silvadene 1 % topical cream RxNorm: 723341 1 Application TOP BI D to burn area No Start Date 01/31/2017 Inactive Prednisone 20 mg Tab RxNorm: 183058 1 Tablet(s) PO TID for 3days then BID for 4days No Start Date 01/25/2012 Inactive gabapentin 600 mg tablet RxNorm: 035980 1 Tablet(s) PO BID No Start Date 01/21/2015 Inactive topiramate 50 mg tablet RxNorm: 466920 1 Tablet(s) PO QHS No Start Date 03/30/2018 Inactive Januvia 100 mg tablet RxNorm: 614512 1/2 Tablet(s) PO QD No Start D ate 12/25/2015 Inactive Diazepam 10 mg Tab RxNorm: 193803 1 Tablet(s) PO BID and PRN No Sta rt Date 06/08/2010 Inactive Medication Administered No Medication Administered data Immunizations Vaccine Codes Date Status Influenza CVX: 141 09/28/2012 Pneumovax Unknown 09/28/2012 Influenza (Adult) CVX: 141 09/02/2010 Results No Results data Procedures Procedure Codes Date THER/PROPH/DIAG INJ SC/IM CPT-4: 69249 07/10/2019 METHYLPREDNISOLONE INJECTION CPT-4: J2930 07/10/2019 URINALYSIS NONAUTO W/O SCOPE CPT-4: 79761 09/06/2018 URINE CULTURE/ COLONY COUNT CPT-4: 67910 09/06/2018 DRAIN/INJECT JOINT/BURSA CPT-4: 34162 04/29/2017 TRIAMCINOLONE ACET INJ NOS CPT-4: J3301 04/29/2017 DEXAMETHASONE SODIUM PHOS CPT-4: J1100 04/29/2017 INFLUENZA ASSAY W/OPTIC CPT-4: 82923 12/01/2016 RESPIRATORY CULTURE & STAIN CPT-4: 65850 07/09/2016 TB INTRADERMAL TEST CPT-4: 27236 04/21/2016 DRAIN/INJECT JOINT/BURSA CPT-4: 62246 11/07/2013 METHYLPREDNISOLONE 40 MG INJ CPT-4: J1030 11/07/2013 TRIAMCINOLONE ACET INJ NOS CPT-4: J3301 11/07/2013 DRAIN/INJECT JOINT/BURSA CPT-4: 63649 08/08/2013 METHYLPREDNISOLONE 40 MG INJ CPT-4: J1030 08/08/2013 TRIAMCINOLONE ACET INJ NOS CPT-4: J3301 08/08/2013 FLU VACCINE 3 YRS & > IM UP 64 CPT-4: 17405 2 PNEUMOCOCCAL VACC 23 ADITYA IM CPT-4: 96345 09/28/2012 IMMUNIZATION ADMIN CPT-4: 76003 09/28/2012 IMMUNIZATION ADMIN EACH ADD CPT-4: 83526 09/28/2012 FLU VACCINE 3 YRS & > IM UP 64 CPT-4: 66214 0 IMMUNIZATION ADMIN CPT-4: 43548 09/02/2010 METHYLPREDNISOLONE INJECTION CPT-4: J2930 05/07/2010 THER/PROPH/DIAG INJ SC/IM CPT-4: 20490 05/07/2010 Vital Signs Date Vital 11/29/2019 Blood [...] 1: 122/78 Code: 8480-6 BMI: 29.5 Code: 69987-5 Heart Rate 1: 76 bpm Height: 5'4" Respiratory Rate: 20 bpm SpO2: 96% Tempera ture: 37.0 (C) / 98.6 (F) Weight: 172 lbs 01/25/2019 Blood Pressure 1: 132/80 Code: 8480-6 BMI: 29.7 Code: 05351-9 Heart Rate 1: 84 bpm Height: 5'4" Respiratory Rate: 22 bpm SpO2: 98% Tempera ture: 36.9 (C) / 98.4 (F) Weight: 173 lbs 01/03/2019 Blood Pressure 1: 116/70 Code: 8480-6 BMI: 29.5 Code: 95606-4 Heart Rate 1: 92 bpm Height: 5'4" Respiratory Rate: 24 bpm SpO2: 98% Tempera ture: 37.2 (C) / 98.9 (F) Weight: 172 lbs 11/21/2018 Blood Pressure 1: 146/82 Code: 8480-6 BMI: 28.2 Code: 58730-5 Heart Rate 1: 88 bpm Height: 5'4" Respiratory Rate: 22 bpm SpO2: 97% Tempera ture: 36.9 (C) / 98.4 (F) Weight: 164 lbs 10/27/2018 Blood Pressure 1: 122/70 Code: 8480-6 BMI: 27.6 Code: 83096-0 Heart Rate 1: 88 bpm Height: 5'4" Respiratory Rate: 20 bpm SpO2: 96% Tempera ture: 36.8 (C) / 98.3 (F) Weight: 161 lbs 10/18/2018 Blood Pressure 1: 126/70 Code: 8480-6 BMI: 28.3 Code: 88339-4 Heart Rate 1: 76 bpm Height: 5'4" Respiratory Rate: 20 bpm SpO2: 95% Tempera ture: 37.0 (C) / 98.6 (F) Weight: 165 lbs 09/27/2018 Blood Pressure 1: 124/78 Code: 8480-6 BMI: 27.1 Code: 43619-1 Heart Rate 1: 88 bpm Height: 5'4" Respiratory Rate: 20 bpm SpO2: 98% Tempera ture: 36.4 (C) / 97.6 (F) Weight: 158 lbs 09/14/2018 Blood Pressure 1: 140/72 Code: 8480-6 BMI: 26.1 Code: 94081-0 Heart Rate 1: 100 bpm Height: 5'4" Respiratory Rate: 20 bpm SpO2: 97% Tempera ture: 36.9 (C) / 98.4 (F) Weight: 152 lbs 09/06/2018 Blood Pressure 1: 156/82 Code: 8480-6 BMI: 26.3 Code: 35098-7 Heart Rate 1: 100 bpm Height: 5'4" Respiratory Rate: 28 bpm SpO2: 95% Tempera ture: 37.2 (C) / 98.9 (F) Weight: 153 lbs 08/16/2018 Blood Pressure 1: 130/78 Code: 8480-6 Heart Rate 1: 87 bpm Respiratory Rate: 24 bpm SpO2: 94% Temperature: 36.9 (C) / 98.4 (F) We ight: 147 lbs 8 oz 07/07/2018 Blood Pressure 1: 116/78 Code: 8480-6 BMI: 22.7 Code: 43263-7 Heart Rate 1: 88 bpm Height: 5'4" Respiratory Rate: 22 bpm SpO2: 98% Tempera ture: 36.5 (C) / 97.7 (F) Weight: 132 lbs 05/31/2018 Blood Pressure 1: 128/78 Code: 8480-6 BMI: 22.3 Code: 91072-4 Heart Rate 1: 92 bpm Height: 5'4" Respiratory Rate: 26 bpm SpO2: 94% Tempera ture: 36.7 (C) / 98.1 (F) Weight: 130 lbs 03/31/2018 Blood Pressure 1: 136/78 Code: 8480-6 BMI: 21.5 Code: 45060-5 Heart Rate 1: 76 bpm Height: 5'4" Respiratory Rate: 24 bpm SpO2: 95% Tempera ture: 36.8 (C) / 98.3 (F) Weight: 125 lbs 01/26/2018 Blood Pressure 1: 142/64 Code: 8480-6 BMI: 20.6 Code: 99920-2 Heart Rate 1: 90 bpm Height: 5'4" Respiratory Rate: 24 bpm SpO2: 92% Tempera ture: 36.3 (C) / 97.3 (F) Weight: 120 lbs 10/26/2017 Blood Pressure 1: 124/70 Code: 8480-6 BMI: 20.3 Code: 36157-4 Heart Rate 1: 76 bpm Height: 5'4" Respiratory Rate: 22 bpm SpO2: 94% Tempera ture: 36.7 (C) / 98.1 (F) Weight: 118 lbs 09/23/2017 Blood Pressure 1: 106/70 Code: 8480-6 BMI: 19.2 Code: 24321-7 Heart Rate 1: 76 bpm Height: 5'4" Respiratory Rate: 20 bpm SpO2: 94% Tempera ture: 36.8 (C) / 98.3 (F) Weight: 112 lbs 08/12/2017 Blood Pressure 1: 116/68 Code: 8480-6 BMI: 20.1 Code: 51722-7 Heart Rate 1: 80 bpm Height: 5'4" Respiratory Rate: 22 bpm SpO2: 95% Tempera ture: 36.8 (C) / 98.2 (F) Weight: 117 lbs 07/06/2017 Blood Pressure 1: 136/78 Code: 8480-6 BMI: 20.6 Code: 93455-3 Heart Rate 1: 76 bpm Height: 5'4" Respiratory Rate: 24 bpm SpO2: 96% Tempera ture: 36.8 (C) / 98.2 (F) Weight: 120 lbs 06/02/2017 Blood Pressure 1: 112/70 Code: 8480-6 Heart Rate 1: 92 bpm Height: 5'4" Respiratory Rate: 24 bpm SpO2: 95% Temperature: 37.0 (C) / 98.6 (F) Weight: 04/29/2017 Blood Pressure 1: 94/52 Code: 8480-6 BMI: 19.6 C ode: 70710-7 Heart Rate 1: 84 bpm Height: 5'4" [...] 92/58 Code: 8480-6 BMI: 19.2 C ode: 91152-0 Heart Rate 1: 84 bpm Height: 5'4" Respiratory Rate: 26 bpm SpO2: 95% Tempera ture: 36.7 (C) / 98.0 (F) Weight: 112 lbs 12/01/2016 Blood Pressure 1: 114/70 Code: 8480-6 BMI: 19.2 Code: 10248-2 Heart Rate 1: 96 bpm Height: 5'4" Respiratory Rate: 28 bpm SpO2: 93% Tempera ture: 38.3 (C) / 101.0 (F) Weight: 112 lbs 10/27/2016 Blood Pressure 1: 126/66 Code: 8480-6 BMI: 19.6 Code: 51752-4 Heart Rate 1: 92 bpm Height: 5'4" Respiratory Rate: 28 bpm SpO2: 90% Tempera ture: 36.8 (C) / 98.3 (F) Weight: 114 lbs 09/09/2016 Blood Pressure 1: 126/74 Code: 8480-6 Heart Rate 1: 104 bpm Height: 5'4" Respiratory Rate: 32 bpm SpO2: 88% Temperature: 37 .2 (C) / 99.0 (F) 08/26/2016 Blood Pressure 1: 134/82 Code: 8480-6 BMI: 22.0 Code: 54839-4 Heart Rate 1: 84 bpm Height: 5'4" Respiratory Rate: 24 bpm SpO2: 94% Tempera ture: 36.8 (C) / 98.3 (F) Weight: 128 lbs 05/21/2016 Blood Pressure 1: 142/80 Code: 8480-6 BMI: 21.6 Code: 37566-0 Heart Rate 1: 104 bpm Height: 5'4" Respiratory Rate: 22 bpm SpO2: 93% Tempera ture: 36.0 (C) / 96.8 (F) Weight: 126 lbs 03/25/2016 Blood Pressure 1: 126/62 Code: 8480-6 Heart Rate 1: 88 bpm Respiratory Rate: 20 bpm SpO2: 92% Temperature: 36.8 (C) / 98.3 (F) We ight: 130 lbs 01/23/2016 Blood Pressure 1: 146/82 Code: 8480-6 BMI: 24.1 Code: 46436-6 Heart Rate 1: 92 bpm Height: 5'3" Respiratory Rate: 22 bpm Temperature: 37 .1 (C) / 98.8 (F) Weight: 136 lbs 12/26/2015 Blood Pressure 1: 142/78 Code: 8480-6 BMI: 24.6 Code: 55480-8 Heart Rate 1: 78 bpm Height: 5'3" Respiratory Rate: 20 bpm Temperature: 36 .7 (C) / 98.1 (F) Weight: 139 lbs 12/03/2015 Blood Pressure 1: 126/60 Code: 8480-6 BMI: 24.6 Code: 66222-9 Heart Rate 1: 100 bpm Height: 5'3" Respiratory Rate: 28 bpm Temperature: 37 .6 (C) / 99.6 (F) Weight: 139 lbs 09/10/2015 Blood Pressure 1: 124/64 Code: 8480-6 BMI: 23.7 Code: 36879-7 Heart Rate 1: 88 bpm Height: 5'3" Respiratory Rate: 24 bpm SpO2: 95% Tempera ture: 36.4 (C) / 97.6 (F) Weight: 134 lbs 08/06/2015 Blood Pressure 1: 114/76 Code: 8480-6 BMI: 23.2 Code: 80775-3 Heart Rate 1: 88 bpm Height: 5'3" Respiratory Rate: 22 bpm Temperature: 36 .6 (C) / 97.9 (F) Weight: 131 lbs 07/18/2015 Blood Pressure 1: 144/78 Code: 8480-6 BMI: 23.7 Code: 23844-5 Heart Rate 1: 84 bpm Height: 5'3" Respiratory Rate: 20 bpm Temperature: 37 .2 (C) / 99.0 (F) Weight: 134 lbs 04/10/2015 Blood Pressure 1: 110/64 Code: 8480-6 Heart Rate 1: 80 bpm Height: Respiratory Rate: 20 bpm Temperature: 37.1 (C) / 98.8 (F) Weight: 03/05/2015 Blood Pressure 1: 136/80 Code: 8480-6 BMI: 23.9 Code: 73661-5 Heart Rate 1: 76 bpm Height: 5'3" Respiratory Rate: 24 bpm Temperature: 37 .0 (C) / 98.6 (F) Weight: 135 lbs 01/30/2015 Blood Pressure 1: 142/80 Code: 8480-6 BMI: 23.0 Code: 95899-0 Heart Rate 1: 96 bpm Height: 5'3" Respiratory Rate: 22 bpm Temperature: 36 .2 (C) / 97.2 (F) Weight: 130 lbs 01/02/2015 Blood Pressure 1: 124/70 Code: 8480-6 BMI: 23.4 Code: 95450-3 Heart Rate 1: 84 bpm Height: 5'3" Respiratory Rate: 24 bpm SpO2: 95% Tempera ture: 36.9 (C) / 98.5 (F) Weight: 132 lbs 10/03/2014 Blood Pressure 1: 106/68 Code: 8480-6 BMI: 22.5 Code: 63058-0 Heart Rate 1: 88 bpm Height: 5'3" Respiratory Rate: 24 bpm Temperature: 37 .0 (C) / 98.6 (F) Weight: 127 lbs 08/27/2014 Blood Pressure 1: 124/68 Code: 8480-6 BMI: 21.1 Code: 50273-0 Heart Rate 1: 88 bpm Height: 5'3" [...] 1: 120/70 Code: 8480-6 BMI: 19.2 Code: 46174-7 Heart Rate 1: 70 bpm Height: 5'4" Respiratory Rate: 20 bpm Temperature: 36 .9 (C) / 98.4 (F) Weight: 112 lbs 06/28/2013 Blood Pressure 1: 102/68 Code: 8480-6 BMI: 19.6 Code: 49908-5 Heart Rate 1: 76 bpm Height: 5'4" Respiratory Rate: 20 bpm Temperature: 36 .8 (C) / 98.2 (F) Weight: 114 lbs 05/31/2013 Blood Pressure 1: 106/70 Code: 8480-6 BMI: 18.9 Code: 50511-8 Heart Rate 1: 100 bpm Height: 5'4" Respiratory Rate: 20 bpm Temperature: 36 .4 (C) / 97.6 (F) Weight: 110 lbs 05/03/2013 Blood Pressure 1: 126/70 Code: 8480-6 BMI: 19.1 Code: 23903-8 Heart Rate 1: 88 bpm Height: 5'4" Respiratory Rate: 20 bpm Temperature: 37 .1 (C) / 98.8 (F) Weight: 111 lbs 04/25/2013 Blood Pressure 1: 114/68 Code: 8480-6 BMI: 19.4 Code: 52651-3 Heart Rate 1: 92 bpm Height: 5'4" Respiratory Rate: 24 bpm SpO2: 96% Tempera ture: 37.7 (C) / 99.8 (F) Weight: 113 lbs 03/08/2013 Blood Pressure 1: 94/68 Code: 8480-6 BMI: 21.3 C ode: 62211-8 Heart Rate 1: 88 bpm Height: 5'4" Respiratory Rate: 24 bpm Temperature: 37 .0 (C) / 98.6 (F) Weight: 124 lbs 02/07/2013 Blood Pressure 1: 106/64 Code: 8480-6 BMI: 21.8 Code: 86898-4 Heart Rate 1: 84 bpm Height: 5'4" Respiratory Rate: 22 bpm Temperature: 36 .8 (C) / 98.2 (F) Weight: 127 lbs 01/10/2013 Blood Pressure 1: 122/68 Code: 8480-6 BMI: 21.6 Code: 23572-1 Heart Rate 1: 94 bpm Height: 5'4" SpO2: 94% Temperature: 36.7 (C) / 98.1 (F) Weight: 126 lbs 09/28/2012 Blood Pressure 1: 124/78 Code: 8480-6 BMI: 24.9 Code: 59465-3 Heart Rate 1: 92 bpm Height: 5'4" Respiratory Rate: 20 bpm Temperature: 36 .7 (C) / 98.1 (F) Weight: 145 lbs 06/28/2012 Blood Pressure 1: 134/80 Code: 8480-6 BMI: 24.9 Code: 37602-3 Heart Rate 1: 76 bpm Height: 5'4" Respiratory Rate: 20 bpm Temperature: 36 .8 (C) / 98.2 (F) Weight: 145 lbs 05/03/2012 Blood Pressure 1: 108/62 Code: 8480-6 BMI: 25.6 Code: 27844-1 Heart Rate 1: 88 bpm Height: 5'4" Temperature: 36.2 (C) / 97.2 (F) Weight: 149 lbs 03/01/2012 Blood Pressure 1: 124/66 Code: 8480-6 BMI: 25.1 Code: 92841-9 Heart Rate 1: 76 bpm Height: 5'4" Respiratory Rate: 20 bpm Temperature: 36 .6 (C) / 97.9 (F) Weight: 146 lbs 01/26/2012 Blood Pressure 1: 118/82 Code: 8480-6 BMI: 25.1 Code: 82120-2 Heart Rate 1: 74 bpm Height: 5'4" Temperature: 36.8 (C) / 98.2 (F) Weight: 146 lbs 11/03/2011 Blood Pressure 1: 126/80 Code: 8480-6 BMI: 27.3 Code: 12728-9 Heart Rate 1: 72 bpm Height: 5'4" [...] prozac Encounters Encounter Performer Location Codes Date ([id number]) OFFICE/OUTPATIENT VISIT EST Diagnosis: Spinal stenosis, lumbar region with neurogenic claudication[ICD10: M48.062] Diagnosis: Spondylosis without myelopathy or radiculopathy, 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] Vika RENTERIA DO [facility] CPT-4: 52020 02/21/2020 ([id number]) OFFICE/OUTPATIENT VISIT EST Diagnosis: Urticaria[ICD10: L50.9]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 07/14/2010 Patient Education: Patient Medication Summary Completed 07/14/2010 Appointment: Vika Renteria WPtel: [address] [place], [place] [phone] [place] FOLLOW UP 05/27/2010 Appointment: Vika Renteria WPtel: [address] [place], [place] [phone] [place] FOLLOW UP 05/14/2010 Visit Plan: SVN with Albuterol 0.083% Q4 hrs and Q2hrs prn. Restart Spiriva Smoking Cessation 05/07/2010 Appointment: Vika Renteria WPtel: [phone] [facility] FOLLOW UP 05/07/2010 Patient Education: Patient Medication Summary Completed 05/07/2010 Appointment: Vika Renteria WPtel: [phone] [facility] ACUTE ILLNESS 04/08/2010 Patient Education: Patient Medication Summary Completed 04/08/2010 Referral: Kyle Billings WPtel: [phone] [facility] [place] Referral Completed Referral: Jaylan Matute WPtel: [address] [facility] [address] [id number] [place] Referral Initiated Referral: Kyle Billings WPtel: [phone] [facility] [place] Referral Appointment Requested Instructions Comment [...] prn breakthrough pain . 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
--- OUTSIDE RECORDS SUMMARY | 2020-04-24 22:33 | XMS REPORT | CCD ---
Author Author Yana Renteria D.O. Organization [facility] Address [address] [place] [address] Phone Care Team Providers Care Project Officer Name Role Phone Vika Renteria D.O., PP Unavailable CCM Unavailable Summary Purpose Interface Exchange Insurance Providers Payer name Policy type / Coverage type Covered republican ID Effective Begin Date Effective End Date [employer] [facility] [place] Medicaid [id number] U nknown Family History Family History data not found Social History Social History Element Codes Description Effective Dates Marital status Unknown 06/28/[address]: [id number] Currently smokes tobacco 05/2013 Allergies, Adverse Reactions, [...] mcg-4.5 mcg/actuation HFA aerosol inhaler RxNo rm: 2938057 INHALE TWO PUFFS BY MOUTH TWICE A DAY 02/19/2020 No Stop Date Active Daliresp 500 mcg tablet RxNorm: 3378722 TAKE ONE TABLET BY MOUTH DAILY 02/19/2020 No Stop Date Active oxycodone 30 mg tablet RxNorm: 3485759 1 Tablet(s) Oral four times a day replaces MS Contin 02/13/2020 03/14/2020 Active prednisone 20 mg tablet RxNorm: 909508 1 Tablet(s) Oral two yumi es a day 02/13/2020 02/20/2020 Inactive levothyroxine 25 mcg tablet RxNorm: 758819 TAKE ONE TAB LET BY MOUTH EVERY MORNING 02/09/2020 No Stop Date Active MS Contin 200 mg tablet,extended release RxNorm: 236784 1 Tablet(s) Oral two times a day 02/01/2020 03/01/2020 Active cyclobenzaprine 10 mg tablet RxNorm: 538565 TAKE ONE TA BLET BY MOUTH THREE TIMES A DAY NEEDED 01/31/2020 No Stop Date Active Premarin 0.45 mg tablet RxNorm: 656344 TAKE ONE TABLET BY MOUTH DAILY 01/31/2020 No Stop Date Active metformin 500 mg tablet RxNorm: 323571 1 Tablet(s) Oral QD 01/31/20 20 04/29/2020 Active gabapentin 300 mg capsule RxNorm: 907985 TAKE ONE CAPSULE BY [facility] TWICE A DAY 01/16/2020 No Stop Date Active potassium chloride ER 20 mEq tablet,extended release RxNorm: 166056 TAKE ONE TABLET BY MOUTH DAILY 01/08/2020 07/05/2020 Active ProAir HFA 90 mcg/actuation aerosol inhaler RxNorm: 626018 INHALE ONE PUFF BY MOUTH EVERY 4 HOURS FOR WHEEZING OR FOR SHORTNESS OF BREATH 01/04/2020 No Stop Date Active metformin 500 mg tablet RxNorm: 689093 1 Tablet(s) Oral QD 01/04/20 20 01/30/2020 Inactive MS Contin 200 mg tablet,extended release RxNorm: 684960 1 Tablet(s) Oral two times a day 01/02/2020 01/31/2020 Inactive Pulmicort 1 mg/2 mL suspension for nebulization RxNorm: 6168 19 USE ONE VIAL VIA NEBULIZER BY MOUTH TWICE A DAY 12/21/2019 No Stop Date Active furosemide 40 mg tablet RxNorm: 968063 TAKE ONE TABLET BY MOUTH EVERY MORNING NEEDED 12/20/2019 No Stop Date Active levothyroxine 25 mcg tablet RxNorm: 703204 TAKE ONE TAB LET BY MOUTH EVERY MORNING 12/20/2019 02/08/2020 Inactive MS Contin 200 mg tablet,extended release RxNorm: 141659 1 Tablet(s) Oral two times a day 12/05/2019 01/01/2020 Inactive Medrol (Aníbal) 4 mg tablets in a dose pack RxNorm: 176256 6 Tablet(s) Oral QD --then as directed 11/30/2019 12/05/2019 Inactive MS Contin 200 mg tablet,extended release RxNorm: 309645 1 Tablet(s) Oral two times a day 11/29/2019 12/04/2019 Inactive cyclobenzaprine 10 mg tablet RxNorm: 237146 TAKE ONE TA BLET BY MOUTH THREE TIMES A DAY NEEDED 11/21/2019 01/30/2020 Inactive MS Contin 200 mg tablet,extended release RxNorm: 795386 1 Tablet(s) Oral two times a day replaces 100mg dose 11/03/2019 11/02/2019 Inactive MS Contin 200 mg tablet,extended release RxNorm: 348259 1 Tablet(s) Oral two times a day replaces 100mg dose 11/03/2019 11/29/2019 Inactive ferrous sulfate 325 mg (65 mg iron) tablet RxNorm: 431090 1 Tab let(s) Oral QD 10/30/2019 No Stop Date Active MS Contin 100 mg tablet,extended release RxNorm: 311284 1 Table t(s) Oral QD 10/30/2019 10/29/2019 Inactive MS Contin 100 mg tablet,extended release RxNorm: 637307 1 Table t(s) Oral QD 10/30/2019 11/02/2019 Inactive Relistor 150 mg tablet RxNorm: 0791569 TAKE THREE TABLETS BY [facility]ENOIT TH DAILY 10/25/2019 No Stop Date Active pantoprazole 40 mg tablet,delayed release RxNorm: 236881 1 Tabl et(s) Oral QD 10/25/2019 No Stop Date Active Minipress 2 mg capsule RxNorm: 059205 1 Capsule(s) Oral QAM and 3 at bedtime 10/25/2019 No Stop Date Active Lancets, Super Thin RxNorm: 1 Unit Dose Miscellaneous QD 9 11/27/2020 Active Cymbalta 60 mg capsule,delayed release RxNorm: 903535 1 Capsule (s) Oral QAM 10/25/2019 No Stop Date Active Cymbalta 30 mg capsule,delayed release RxNorm: 174084 1 Capsule (s) Oral QAM 10/25/2019 No Stop Date Active oxycodone 15 mg tablet RxNorm: 6262114 1 Tablet(s) Oral four times a day as needed for pain 10/25/2019 11/28/2019 Inactive metformin 500 mg tablet RxNorm: 739664 1 Tablet(s) Oral QD 10/25/20 19 01/03/2020 Inactive levothyroxine 25 mcg tablet RxNorm: 659268 1 Tablet(s) Oral QAM 02/201912/19/2019 Inactive levothyroxine 25 mcg tablet RxNorm: 192070 1 Tablet(s) Oral QAM 02/201910/24/2019 Inactive MS Contin 100 mg tablet,extended release RxNorm: 920761 1 Tablet(s) Oral two times a day replaces fentanyl 10/25/2019 10/25/2019 Inactive Premarin 0.45 mg tablet RxNorm: 114298 TAKE ONE TABLET BY MOUTH DAILY 10/24/2019 01/30/2020 Inactive Duragesic 100 mcg/hr transdermal patch RxNorm: 391742 2 Application TD Q48H for pain 10/18/2019 10/24/2019 Inactive gabapentin 300 mg capsule RxNorm: 208997 TAKE ONE CAPSULE BY MO UTH TWICE A DAY 10/16/2019 01/15/2020 Inactive cyclobenzaprine 10 mg tablet RxNorm: 206021 TAKE ONE TA BLET BY MOUTH THREE TIMES A DAY NEEDED 09/27/2019 11/20/2019 Inactive Relistor 150 mg tablet RxNorm: 0338105 TAKE THREE TABLETS BY BENOIT TH DAILY 09/25/2019 10/24/2019 Inactive ProAir HFA 90 mcg/actuation aerosol inhaler RxNorm: 538414 INHALE ONE PUFF BY MOUTH EVERY 4 HOURS FOR WHEEZING OR FOR SHORTNESS OF BREATH 09/25/2019 01/03/2020 Inactive furosemide 40 mg tablet RxNorm: 122337 1 Tablet(s) Oral QAM as needed 09/25/2019 09/25/2019 Inactive oxycodone 15 mg tablet RxNorm: 7442943 1 Tablet(s) PO QID as nee ded for pain 09/21/2019 10/24/2019 Inactive Duragesic 100 mcg/hr transdermal patch RxNorm: 166920 2 Application TD Q48H for pain 09/19/2019 10/17/2019 Inactive Daliresp 500 mcg tablet RxNorm: 5904475 1 Tablet(s) Oral QD 019 02/18/2020 Inactive Relistor 150 mg tablet RxNorm: 6115963 TAKE THREE TABLETS BY BENOIT TH DAILY 07/25/2019 07/30/2019 Inactive cyclobenzaprine 10 mg tablet RxNorm: 323035 TAKE ONE TA BLET BY MOUTH THREE TIMES A DAY NEEDED 07/25/2019 09/22/2019 Inactive potassium chloride ER 20 mEq tablet,extended release RxNorm: 378491 TAKE ONE TABLET BY MOUTH DAILY 07/25/2019 01/07/2020 Inactive fluoxetine 40 mg capsule RxNorm: 896354 TAKE ONE CAPSULE BY BENOIT TH EVERY MORNING 07/11/2019 10/24/2019 Inactive Medrol (Aníbal) 4 mg tablets in a dose pack RxNorm: 796324 6 Tablet(s) PO QD --then as directed 07/10/2019 07/15/2019 Inactive omeprazole 40 mg capsule,delayed release RxNorm: 569064 1 Capsule(s) PO QD for stomach TAKE ONE CAPSULE BY MOUTH DAILY 07/10/2019 10/24/2019 Inactive Augmentin 875 mg-125 mg tablet RxNorm: 308376 1 Tablet(s) PO BID 07/16/2019 Inactive Trulicity 0.75 mg/0.5 mL subcutaneous pen injector RxNorm: 1 880751 0.75 Milliliter(s) SQ weekly 07/05/2019 10/24/2019 Inactive Compazine 10 mg tablet RxNorm: 591986 TAKE ONE TABLET B Y MOUTH FOUR TIMES A DAY NEEDED FOR NAUSEA 06/20/2019 07/19/2019 Inactive ProAir HFA 90 mcg/actuation aerosol inhaler RxNorm: 088725 INHALE ONE PUFF BY MOUTH EVERY 4 HOURS FOR WHEEZING OR FOR SHORTNESS OF BREATH 06/20/2019 06/23/2019 Inactive Daliresp 500 mcg tablet RxNorm: 5724087 TAKE ONE TABLET BY MOUTH DAILY 06/12/2019 09/10/2019 Inactive okpofroi-mnwgqboqr-wpeaxgtyf 3.5 mg/mL-10,000 unit/mL- 1 % ear solution RxNorm: 759681 4 Drop(s) otic (ear) TID to left ear 06/05/2019 10/24/2019 Inac tive furosemide 40 mg tablet RxNorm: 180283 TAKE ONE TABLET BY MOUTH EVERY MORNING 05/26/2019 07/09/2019 Inactive Duragesic 100 mcg/hr transdermal patch RxNorm: 934087 2 Application TD Q48H for pain 05/16/2019 06/14/2019 Inactive oxycodone 15 mg tablet RxNorm: 1099945 1 Tablet(s) PO QID as nee ded for pain 05/10/2019 09/20/2019 Inactive doxycycline hyclate 100 mg capsule RxNorm: 7226264 1 Capsule(s) PO BID 05/03/2019 05/12/2019 Inactive prednisone 20 mg tablet RxNorm: 222211 1 Tablet(s) PO T ID for 3 days then 1 po BID for 3 days then one daily for 3 days 05/03/2019 07/11/2019 Inactiv e Ozempic 0.25 mg or 0.5 mg (2 mg/1.5 mL) subcutaneous p en injector RxNorm: 4463218 0.5 Milligram(s) SQ QW 05/03/2019 07/09/2019 Inactive fluconazole 100 mg tablet RxNorm: 781885 1 Tablet(s) PO QD 05/03/20 19 05/07/2019 Inactive Premarin 0.45 mg tablet RxNorm: 052359 TAKE ONE TABLET BY MOUTH DAILY 05/03/2019 10/23/2019 Inactive potassium chloride ER 20 mEq tablet,extended release RxNorm: 311563 1 Tablet(s) PO QD 04/27/2019 07/25/2019 Inactive potassium chloride ER 20 mEq tablet,extended release RxNorm: 403401 1 Tablet(s) PO QD 04/25/2019 04/26/2019 Inactive Compazine 10 mg tablet RxNorm: 632076 1 Tablet(s) PO QID as nee ded for nausea 04/25/2019 05/04/2019 Inactive ProAir HFA 90 mcg/actuation aerosol inhaler RxNorm: 866331 INHALE ONE PUFF BY MOUTH EVERY 4 HOURS FOR WHEEZING OR FOR SHORTNESS OF BREATH 04/12/2019 06/10/2019 Inactive Medrol (Aníbal) 4 mg tablets in a dose pack RxNorm: 293180 6 Tablet(s) PO QD --then as directed 04/11/2019 04/16/2019 Inactive Symbicort 160 mcg-4.5 mcg/actuation HFA aerosol inhaler RxNo rm: 8519528 2 Puff(s) INH BID 04/10/2019 10/06/2019 Inactive levothyroxine 50 mcg tablet RxNorm: 327538 1 Tablet(s) PO QD 201810/24/2019 Inactive gabapentin 300 mg capsule RxNorm: 405560 1 Capsule(s) PO BID 201810/02/2019 Inactive Symbicort 160 mcg-4.5 mcg/actuation HFA aerosol inhaler RxNo rm: 3136801 2 Puff(s) INH BID 04/06/2019 04/09/2019 Inactive oxycodone 15 mg tablet RxNorm: 8719736 1 Tablet(s) PO QID as nee ded for pain 04/05/2019 05/09/2019 Inactive levothyroxine 50 mcg tablet RxNorm: 096516 1 Tablet(s) PO QD 201804/09/2019 Inactive furosemide 40 mg tablet RxNorm: 661489 TAKE ONE TABLET BY MOUTH EVERY MORNING 03/21/2019 04/19/2019 Inactive levothyroxine 50 mcg tablet RxNorm: 546637 TAKE ONE TABLET BY M OUTH DAILY 03/21/2019 03/27/2019 Inactive Duragesic 100 mcg/hr transdermal patch RxNorm: 028630 2 Application TD Q48H for pain 03/13/2019 04/11/2019 Inactive oxycodone 15 mg tablet RxNorm: 9294411 1 Tablet(s) PO QID as nee ded for pain 03/06/2019 04/04/2019 Inactive Relistor 150 mg tablet RxNorm: 8903222 3 Tablet(s) PO QD 02/28/2019 0 05/28/2019 Inactive cyclobenzaprine 10 mg tablet RxNorm: 059446 1 Tablet(s) PO TID as needed 02/28/2019 05/28/2019 Inactive phentermine 37.5 mg tablet RxNorm: 984470 1 Tablet(s) PO QAM 201803/15/2019 Inactive Duragesic 100 mcg/hr transdermal patch RxNorm: 179438 2 Application TD Q48H for pain 02/09/2019 03/10/2019 Inactive Daliresp 500 mcg tablet RxNorm: 7511036 TAKE ONE TABLET BY MOUTH DAILY 01/31/2019 05/30/2019 Inactive Premarin 0.45 mg tablet RxNorm: 782821 1 Tablet(s) PO QD 01/31/2019 0 04/30/2019 Inactive fluoxetine 40 mg capsule RxNorm: 360242 Capsule(s) TAKE ONE CAPSULE BY MOUTH EVERY MORNING 01/31/2019 04/30/2019 Inactive levothyroxine 50 mcg tablet RxNorm: 759858 1 Tablet(s) PO QD 201804/10/2019 Inactive follow up in 3 weeks levothyroxine 50 mcg tablet RxNorm: 427673 1 Tablet(s) PO QD 201801/25/2019 Inactive follow up in 3 weeks potassium chloride ER 20 mEq tablet,extended release RxNorm: 819743 2 Tablet(s) PO BID 01/23/2019 01/08/2020 Inactive Synthroid 50 mcg tablet RxNorm: 099017 TAKE ONE TABLET BY MOUTH DAILY 01/16/2019 10/24/2019 Inactive potassium chloride ER 20 mEq tablet,extended release RxNorm: 926875 2 Tablet(s) PO BID 01/04/2019 01/22/2019 Inactive ProAir HFA 90 mcg/actuation aerosol inhaler RxNorm: 601210 INHALE ONE PUFF BY MOUTH EVERY 4 HOURS FOR WHEEZING OR SHORTNESS OF BREATH 01/04/201902/20 Inactive Request already responded to by other me ans (e.g. phone or fax) ProAir HFA 90 mcg/actuation aerosol inhaler RxNorm: 2264884 INHALE ONE PUFF BY MOUTH EVERY 4 HOURS FOR WHEEZING OR SHORTNESS OF BREATH 01/02/201912/23 Inactive gabapentin 300 mg capsule RxNorm: 947773 TAKE ONE CAPSULE BY MO UTH TWICE A DAY 12/30/2018 04/06/2019 Inactive furosemide 40 mg tablet RxNorm: 742277 1 Tablet(s) PO QAM 12/26/2018 02/23/2019 Inactive Compazine 10 mg tablet RxNorm: 397888 1 Tablet(s) PO QID as nee ded for nausea 12/07/2018 12/16/2018 Inactive metolazone 2.5 mg tablet RxNorm: 059560 TAKE ONE TABLET BY MOUT H EVERY MORNING 12/05/2018 01/03/2019 Inactive metformin ER 500 mg tablet,extended release 24 hr RxNorm: 86 0975 TAKE ONE TABLET BY MOUTH DAILY 12/05/2018 01/31/2020 Inactive Synthroid 50 mcg tablet RxNorm: 090301 1 Tablet(s) PO QD 11/25/2018 0 01/03/2019 Inactive DC any other synthroid strengths. Should be 50mcg only cyclobenzaprine 10 mg tablet RxNorm: 166790 TAKE ONE TA BLET BY MOUTH THREE TIMES A DAY NEEDED 11/09/2018 02/06/2019 Inactive metolazone 2.5 mg tablet RxNorm: 189768 1 Tablet(s) PO QAM repl aces 5mg dose 11/02/2018 12/01/2018 Inactive potassium chloride ER 20 mEq tablet,extended release RxNorm: 963428 2 Tablet(s) PO QD 2018 01/02/2019 Inactive Compazine 10 mg tablet RxNorm: 229717 1 Tablet(s) PO QID as nee ded for nausea 10/18/2018 12/07/2018 Inactive furosemide 40 mg tablet RxNorm: 171224 1 Tablet(s) PO QAM 10/12/2018 12/10/2018 Inactive ondansetron 8 mg disintegrating tablet RxNorm: 603312 1 Tablet(s) PO Q6H as needed 10/11/2018 10/17/2018 Inactive scopolamine 1 mg over 3 days transdermal patch RxNorm: 52707 2 1 Application TD behind ear. Take off after three days 10/11/2018 01/02/2019 Inactive furosemide 40 mg tablet RxNorm: 328276 1 Tablet(s) PO QAM 10/10/2018 12/26/2018 Inactive metolazone 5 mg tablet RxNorm: 140758 1 Tablet(s) PO QAM 10/06/2018 1 01/03/2018 Inactive metolazone 5 mg tablet RxNorm: 600842 1 Tablet(s) PO QAM 10/06/2018 1 12/05/2017 Inactive Xtampza ER 36 mg capsule sprinkle RxNorm: 4033245 1 Capsule(s) P O BID 10/05/2018 01/02/2019 Inactive Xtampza ER 36 mg capsule sprinkle RxNorm: 8844433 1 Capsule(s) P O BID 10/05/2018 02/12/2019 Inactive omeprazole 40 mg capsule,delayed release RxNorm: 945151 TAKE ONE CAPSULE BY MOUTH DAILY 10/03/2018 12/31/2018 Inactive Duragesic 100 mcg/hr transdermal patch RxNorm: 150147 2 Application TD Q48H for pain 09/30/2018 10/29/2018 Inactive Synthroid 50 mcg tablet RxNorm: 201892 1 Tablet(s) PO QD 09/29/2018 0 11/25/2018 Inactive DC any other synthroid strengths. Should be 50mcg only Synthroid 50 mcg tablet RxNorm: 055253 1 Tablet(s) PO QD 09/29/2018 1 11/28/2017 Inactive furosemide 40 mg tablet RxNorm: 832321 2 Tablet(s) PO Q AM for 1 week then every other day for 2 weeks 09/27/2018 10/12/2018 Inactive fluoxetine 40 mg capsule RxNorm: 229537 2 Capsule(s) PO QD 09/27/20 18 10/17/2018 Inactive potassium chloride ER 20 mEq tablet,extended release RxNorm: 722186 2 Tablet(s) PO QD for 1 week then every other day for 2 weeks 09/27/2018 2018 Inactive ProAir HFA 90 mcg/actuation aerosol inhaler RxNorm: 7105564 INHALE ONE PUFF BY MOUTH EVERY 4 HOURS FOR WHEEZING OR SHORTNESS OF BREATH 09/26/201811/23 Inactive Synthroid 75 mcg tablet RxNorm: 716679 1 Tablet(s) PO QD 09/09/2018 1 Inactive Synthroid 75 mcg tablet RxNorm: 014979 1 Tablet(s) PO QD 09/09/2018 1 11/28/2017 Inactive furosemide 40 mg tablet RxNorm: 270059 1 Tablet(s) PO QD 09/06/2018 1 Inactive potassium chloride ER 20 mEq tablet,extended release RxNorm: 376111 1 Tablet(s) PO QD 09/06/2018 09/19/2018 Inactive Duragesic 100 mcg/hr transdermal patch RxNorm: 032845 2 Application TD Q48H for pain 08/30/2018 09/28/2018 Inactive gabapentin 300 mg capsule RxNorm: 007441 TAKE ONE CAPSULE BY [facility] TWICE A DAY 08/23/2018 12/20/2018 Inactive Daliresp 500 mcg tablet RxNorm: 0799223 TAKE ONE TABLET BY MOUTH DAILY 08/23/2018 01/19/2019 Inactive Pulmicort 1 mg/2 mL suspension for nebulization RxNorm: 6168 19 USE ONE VIAL VIA NEBULIZER BY MOUTH TWICE A DAY 08/23/2018 07/11/2019 Inactive Synthroid 88 mcg tablet RxNorm: 217069 1 Tablet(s) PO QD 08/19/2018 Inactive Medrol (Aníbal) 4 mg tablets in a dose pack RxNorm: 222548 Tablet(s) PO take as directed 08/16/2018 09/05/2018 Inactive Relistor 150 mg tablet RxNorm: 3903335 3 Tablet(s) PO QD 08/16/2018 Inactive Zithromax Z-Aníbal 250 mg tablet RxNorm: 627554 Tablet(s) PO take as directed 08/16/2018 09/05/2018 Inactive cyclobenzaprine 10 mg tablet RxNorm: 092124 1 Tablet(s) PO TID as needed 08/16/2018 11/08/2018 Inactive Synthroid 88 mcg tablet RxNorm: 260952 1 Tablet(s) PO Q D NEEDS UPDATED LABS BEFORE FURTHER REFILLS 08/08/2018 08/19/2018 Inactive Premarin 0.45 mg tablet RxNorm: 202351 1 Tablet(s) PO QD 08/03/2018 0 01/31/2019 Inactive fluoxetine 20 mg capsule RxNorm: 281866 TAKE ONE CAPSULE BY BENOIT TH DAILY 08/03/2018 09/26/2018 Inactive Xtampza ER 36 mg capsule sprinkle RxNorm: 4459423 1 Capsule(s) P O BID 08/03/2018 09/01/2018 Inactive metformin ER 500 mg tablet,extended release 24 hr RxNorm: 86 0975 1 Tablet(s) PO QD 08/03/2018 10/31/2018 Inactive Symbicort 160 mcg-4.5 mcg/actuation HFA aerosol inhaler RxNo rm: 4309634 2 Puff(s) INH BID 08/03/2018 01/29/2019 Inactive Duragesic 100 mcg/hr transdermal patch RxNorm: 864682 2 Application TD Q48H for pain 07/29/2018 08/27/2018 Inactive ProAir HFA 90 mcg/actuation aerosol inhaler RxNorm: 733908 INHALE TWO PUFFS BY MOUTH EVERY 4 HOURS FOR WHEEZING OR SHORTNESS OF BREATH 07/27/201802/2018 Inactive Relistor 150 mg tablet RxNorm: 4787582 3 Tablet(s) PO QD 07/20/2018 0 08/15/2018 Inactive metformin ER 500 mg tablet,extended release 24 hr RxNorm: 86 0975 TAKE ONE TABLET BY MOUTH DAILY 07/08/2018 08/02/2018 Inactive fluoxetine 40 mg capsule RxNorm: 251494 TAKE ONE CAPSULE BY BENOIT TH EVERY MORNING 07/08/2018 10/05/2018 Inactive Xtampza ER 18 mg capsule sprinkle RxNorm: 0130455 1 Capsule(s) P O BID 07/08/2018 08/02/2018 Inactive Relistor 150 mg tablet RxNorm: 7786929 3 Tablet(s) PO QD 07/08/2018 0 07/12/2018 Inactive Synthroid 88 mcg tablet RxNorm: 996479 1 Tablet(s) PO Q D NEEDS UPDATED LABS BEFORE FURTHER REFILLS 06/23/2018 07/07/2018 Inactive fluoxetine 40 mg capsule RxNorm: 739717 TAKE ONE CAPSULE BY BENOIT TH EVERY MORNING 06/15/2018 09/26/2018 Inactive orphenadrine citrate ER 100 mg tablet,extended release RxNor m: 927279 TAKE ONE TABLET BY MOUTH TWICE A DAY FOR MUSCLE SPASM 06/15/2018 08/15/2018 [place] Duragesic 100 mcg/hr transdermal patch RxNorm: 991759 2 Application TD Q48H for pain 05/30/2018 06/28/2018 Inactive ProAir HFA 90 mcg/actuation aerosol inhaler RxNorm: 752895 INHALE TWO PUFFS BY MOUTH EVERY 4 HOURS FOR WHEEZING OR SHORTNESS OF BREATH 05/19/201803/2018 Inactive Chantix Continuing Month Box 1 mg tablet RxNorm: 093317 TAKE ONE TABLET BY MOUTH TWICE A DAY 05/19/2018 08/15/2018 Inactive oxycodone 10 mg tablet RxNorm: 1901667 1-2 Tablet(s) PO QID as n eeded for pain 05/19/2018 07/07/2018 Inactive gabapentin 300 mg capsule RxNorm: 854871 TAKE ONE CAPSULE BY MO COH TWICE A DAY 05/18/2018 07/16/2018 Inactive ProAir HFA 90 mcg/actuation aerosol inhaler RxNorm: 565807 INHALE TWO PUFFS BY MOUTH EVERY 4 HOURS FOR WHEEZING OR SHORTNESS OF BREATH 05/04/201804/23 Inactive Augmentin 500 mg-125 mg tablet RxNorm: 023987 1 Tablet(s) PO BID 05/03/2018 Inactive oxycodone 10 mg tablet RxNorm: 9755942 1-2 Tablet(s) PO QID as n eeded for pain 04/21/2018 05/18/2018 Inactive Synthroid 88 mcg tablet RxNorm: 900309 1 Tablet(s) PO QD 04/15/2018 0 08/08/2018 Inactive Symbicort 160 mcg-4.5 mcg/actuation HFA aerosol inhaler RxNo rm: 1209510 2 Puff(s) INH BID 04/15/2018 04/10/2019 Inactive Premarin 0.45 mg tablet RxNorm: 110029 1 Tablet(s) PO QD 04/15/2018 0 08/03/2018 Inactive ProAir HFA 90 mcg/actuation aerosol inhaler RxNorm: 265684 2 Puff(s) INH Q4H prn for wheezing or shortness of breath 04/15/2018 05/03/2018 Inactive metformin ER 500 mg tablet,extended release 24 hr RxNorm: 86 0975 1 Tablet(s) PO QD 04/11/2018 07/07/2018 Inactive omeprazole 40 mg capsule,delayed release RxNorm: 045488 TAKE ONE CAPSULE BY MOUTH DAILY 04/10/2018 06/08/2018 Inactive Synthroid 88 mcg tablet RxNorm: 929716 1 Tablet(s) PO QD 04/04/2018 0 04/14/2018 Inactive Synthroid 88 mcg tablet RxNorm: 422610 1 Tablet(s) PO QD 04/04/2018 0 04/03/2018 Inactive orphenadrine citrate ER 100 mg tablet,extended release RxNor m: 169954 1 Tablet(s) PO BID for muscle spasm 04/04/2018 05/03/2018 Inactive metformin ER 500 mg tablet,extended release 24 hr RxNorm: 86 0975 1 Tablet(s) PO QD NEEDS UPDATED LABS 03/31/2018 04/11/2018 Inactive doxycycline hyclate 100 mg capsule RxNorm: 6711738 1 Capsule(s) PO BID 03/31/2018 04/09/2018 Inactive prednisone 20 mg tablet RxNorm: 833411 3 Tablet(s) PO T ID for 3 days then 1 po BID for 3 days then one daily for 3 days 03/31/2018 07/06/2018 Inactiv e Chantix Continuing Month Box 1 mg tablet RxNorm: 400818 TAKE ONE TABLET BY MOUTH TWICE A DAY 03/25/2018 03/30/2018 Inactive oxycodone 10 mg tablet RxNorm: 8565062 1-2 Tablet(s) PO QID as n eeded for pain 03/21/2018 04/20/2018 Inactive Daliresp 500 mcg tablet RxNorm: 1531811 1 Tablet(s) PO QD 03/15/2018 08/22/2018 Inactive metformin ER 500 mg tablet,extended release 24 hr RxNorm: 86 0975 1 Tablet(s) PO QD NEEDS UPDATED LABS 03/14/2018 03/31/2018 Inactive nystatin 100,000 unit/mL oral suspension RxNorm: 210623 5 [place] liter(s) PO QID 03/02/2018 03/15/2018 Inactive nystatin 100,000 unit/mL oral suspension RxNorm: 888457 5 [place]io liter(s) PO QID 03/02/2018 03/01/2018 Inactive oxycodone 10 mg tablet RxNorm: 6480908 1-2 Tablet(s) PO QID as n eeded for pain 02/16/2018 03/20/2018 Inactive fluoxetine 20 mg capsule RxNorm: 044937 1 Capsule(s) PO QD 02/15/20 18 08/02/2018 Inactive metformin ER 500 mg tablet,extended release 24 hr RxNorm: 86 0975 1 Tablet(s) PO QD Needs updated labs 02/14/2018 03/14/2018 Inactive cefdinir 300 mg capsule RxNorm: 933212 1 Capsule(s) PO BID 01/27/20 18 02/04/2018 Inactive orphenadrine citrate ER 100 mg tablet,extended release RxNor m: 143136 1 Tablet(s) PO BID for muscle spasm 01/26/2018 04/04/2018 Inactive gabapentin 300 mg capsule RxNorm: 791726 1 Capsule(s) PO BID 201704/17/2018 Inactive oxycodone 10 mg tablet RxNorm: 8543333 1-2 Tablet(s) PO QID as n eeded for pain 01/17/2018 02/15/2018 Inactive Duragesic 100 mcg/hr transdermal patch RxNorm: 806678 2 Application TD Q48H for pain 01/17/2018 02/15/2018 Inactive gabapentin 300 mg capsule RxNorm: 999544 TAKE ONE CAPSULE BY MO UTH TWICE A DAY 12/20/2017 01/18/2018 Inactive fluoxetine 40 mg capsule RxNorm: 140817 TAKE ONE CAPSULE BY BENOIT TH EVERY MORNING 12/15/2017 03/14/2018 Inactive OneTouch Ultra Test strips RxNorm: TEST DAILY 11/04/2017 02/01/2018 Inactive gabapentin 300 mg capsule RxNorm: 622701 1 Capsule(s) P O TID replaces BID dosing 10/26/2017 02/22/2018 Inactive oxycodone 10 mg tablet RxNorm: 1902662 1-2 Tablet(s) PO QID as n eeded for pain 10/18/2017 01/16/2018 Inactive Duragesic 100 mcg/hr transdermal patch RxNorm: 175244 2 Application TD Q48H for pain 10/18/2017 11/16/2017 Inactive gabapentin 300 mg capsule RxNorm: 703201 1 Capsule(s) PO BID 201610/25/2017 Inactive Abilify 5 mg tablet RxNorm: 434883 1 Tablet(s) PO QAM 09/23/201702/2017 Inactive gabapentin 300 mg capsule RxNorm: 020618 1 Capsule(s) PO BID 201610/17/2017 Inactive oxycodone 10 mg tablet RxNorm: 9470371 1-2 Tablet(s) PO QID as n eeded for pain 09/15/2017 10/17/2017 Inactive Duragesic 100 mcg/hr transdermal patch RxNorm: 068483 2 Application TD Q48H for pain 09/15/2017 10/14/2017 Inactive Duragesic 100 mcg/hr transdermal patch RxNorm: 908585 2 Application TD Q48H for pain 09/15/2017 10/24/2019 Inactive oxycodone 10 mg tablet RxNorm: 6608552 1-2 Tablet(s) PO QID as n eeded for pain 09/15/2017 08/15/2018 Inactive Daliresp 500 mcg tablet RxNorm: 7524518 1 Tablet(s) PO QD 09/06/2017 03/15/2018 Inactive Ventolin HFA 90 mcg/actuation aerosol inhaler RxNorm: 781228 2 Puff(s) INH Q4H as needed 09/02/2017 05/19/2018 Inactive oxycodone 10 mg tablet RxNorm: 5032945 1-2 Tablet(s) PO QID as n eeded for pain 08/17/2017 09/14/2017 Inactive Duragesic 100 mcg/hr transdermal patch RxNorm: 638764 2 Application TD Q48H for pain 08/17/2017 09/14/2017 Inactive fluoxetine 40 mg capsule RxNorm: 395357 Capsule(s) TAKE ONE CAPSULE BY MOUTH EVERY MORNING 08/17/2017 12/14/2017 Inactive Pulmicort 1 mg/2 mL suspension for nebulization RxNorm: 6168 19 1 Unit Dose INH BID Dx: COPD (J44.9) 08/16/2017 08/22/2018 Inactive gabapentin 300 mg capsule RxNorm: 320343 1 Capsule(s) PO QHS 201610/18/2017 Inactive fluoxetine 20 mg capsule RxNorm: 673203 1 Capsule(s) PO QD 08/12/20 17 02/14/2018 Inactive Abilify 2 mg tablet RxNorm: 111101 1 Tablet(s) PO QD TA KE ONE TABLET BY MOUTH DAILY 08/12/2017 10/25/2017 Inactive metformin ER 500 mg tablet,extended release 24 hr RxNorm: 86 0975 1 Tablet(s) PO QD 08/10/2017 02/14/2018 Inactive Synthroid 112 mcg tablet RxNorm: 348995 1 Tablet(s) PO QD 08/10/2017 04/15/2018 Inactive oxycodone 10 mg tablet RxNorm: 9433205 1-2 Tablet(s) PO QID as n eeded for pain 07/19/2017 08/16/2017 Inactive Duragesic 100 mcg/hr transdermal patch RxNorm: 011840 2 Application TD Q48H for pain 07/19/2017 08/16/2017 Inactive Ventolin HFA 90 mcg/actuation aerosol inhaler RxNorm: 885044 2 Puff(s) INH Q4H as needed 07/12/2017 09/02/2017 Inactive Abilify 2 mg tablet RxNorm: 901372 1 Tablet(s) PO QD TA KE ONE TABLET BY MOUTH DAILY 07/06/2017 08/11/2017 Inactive gabapentin 800 mg tablet RxNorm: 013997 1 Tablet(s) PO TID 06/22/20 17 07/05/2017 Inactive Chantix Starting Month Box 0.5 mg (11)-1 mg (42) table ts in dose pack RxNorm: 239560 TAKE BY MOUTH INSTRUCTED - PER PACKAGE INSTRUCTIONS 06/0707/04/2017 Inactive Ventolin HFA 90 mcg/actuation aerosol inhaler RxNorm: 681119 2 Puff(s) INH Q4H as needed 05/26/2017 07/12/2017 Inactive Duragesic 100 mcg/hr transdermal patch RxNorm: 517303 2 Application TD Q48H for pain 05/19/2017 06/17/2017 Inactive oxycodone 10 mg tablet RxNorm: 6193874 1-2 Tablet(s) PO QID as n eeded for pain 05/19/2017 07/18/2017 Inactive Abilify 2 mg tablet RxNorm: 577989 TAKE ONE TABLET BY MOUTH DAILY 0 05/10/2017 07/05/2017 Inactive Synthroid 112 mcg tablet RxNorm: 201007 1 Tablet(s) PO QD 05/06/2017 08/10/2017 Inactive metformin ER 500 mg tablet,extended release 24 hr RxNorm: 86 0975 1 Tablet(s) PO QD 05/06/2017 08/10/2017 Inactive Topamax 100 mg tablet RxNorm: 831467 1 Tablet(s) PO QHS 05/06/2017 Inactive Premarin 0.45 mg tablet RxNorm: 472356 1 Tablet(s) PO QD 05/06/2017 0 04/15/2018 Inactive orphenadrine citrate ER 100 mg tablet,extended release RxNor m: 605168 1 Tablet(s) PO TID for muscle spasm--replaces methocarbamol 04/29/2017 Inactive oxycodone 10 mg tablet RxNorm: 6848297 1-2 Tablet(s) PO QID as n eeded for pain 04/21/2017 05/18/2017 Inactive Duragesic 100 mcg/hr transdermal patch RxNorm: 640671 2 Application TD Q48H for pain 04/21/2017 05/18/2017 Inactive fluoxetine 40 mg capsule RxNorm: 938527 Capsule(s) TAKE ONE CAPSULE BY MOUTH EVERY MORNING 04/20/2017 08/17/2017 Inactive Ventolin HFA 90 mcg/actuation aerosol inhaler RxNorm: 658974 2 Puff(s) INH Q4H as needed 04/05/2017 05/26/2017 Inactive Symbicort 160 mcg-4.5 mcg/actuation HFA aerosol inhaler RxNo rm: 2566111 2 Puff(s) INH BID 03/30/2017 04/15/2018 Inactive Spiriva with HandiHaler 18 mcg and inhalation capsules RxNor m: 411246 1 Capsule(s) INH QD USING HANDIHALER 03/30/2017 02/12/2019 Inactive Duragesic 100 mcg/hr transdermal patch RxNorm: 729492 2 Application TD Q48H for pain 03/18/2017 04/16/2017 Inactive oxycodone 10 mg tablet RxNorm: 7698496 1-2 Tablet(s) PO QID as n eeded for pain 03/18/2017 04/20/2017 Inactive metformin ER 500 mg tablet,extended release 24 hr RxNorm: 86 0975 Tablet(s) TAKE ONE TABLET BY MOUTH DAILY 03/01/2017 05/06/2017 Inactive Premarin 0.45 mg tablet RxNorm: 922996 Tablet(s) TAKE ONE TABLE T BY MOUTH DAILY 03/01/2017 05/06/2017 Inactive Synthroid 112 mcg tablet RxNorm: 044061 Tablet(s) TAKE ONE TABLET BY MOUTH DAILY 03/01/2017 05/06/2017 Inactive Daliresp 500 mcg tablet RxNorm: 2790329 1 Tablet(s) PO QD 03/01/2017 09/06/2017 Inactive 16.2 mg-0.1037 mg-0.0194 mg tablet RxNorm: 6215413 Tablet(s) PO PRN for gas and cramping 02/23/2017 04/28/2017 Inactive TAKE TWO TABLET S BY MOUTH THREE TIMES A DAY NEEDED FOR GAS AND CRAMPING gabapentin 800 mg tablet RxNorm: 339107 1 Tablet(s) PO TID repl aces 600mg 02/23/2017 04/28/2017 Inactive Duragesic 100 mcg/hr transdermal patch RxNorm: 784777 2 Application TD Q48H for pain 02/17/2017 03/17/2017 Inactive fluoxetine 20 mg capsule RxNorm: 425239 1 Capsule(s) PO QD 02/18/20 17 08/12/2017 Inactive oxycodone 20 mg tablet RxNorm: 1121548 1 Tablet(s) PO QID as nee ded for pain 02/17/2017 03/17/2017 Inactive Ventolin HFA 90 mcg/actuation aerosol inhaler RxNorm: 026204 INHALE TWO PUFFS BY MOUTH EVERY 4 HOURS NEEDED 02/15/2017 04/05/2017 Inactive Silvadene 1 % topical cream RxNorm: 136213 1 Application TOP BI D to burn area 02/01/2017 09/22/2017 Inactive Topamax 100 mg tablet RxNorm: 072070 TAKE ONE TABLET BY MOUTH EVERY NIGHT AT BEDTIME 01/29/2017 05/06/2017 Inactive Chantix Starting Month Box 0.5 mg (11)-1 mg (42) table ts in dose pack RxNorm: 417833 Tablet(s) PO as directed 01/29/2017 06/01/2017 Inactive Abilify 2 mg tablet RxNorm: 490475 TAKE ONE TABLET BY MOUTH DAILY 0 01/26/2017 04/25/2017 Inactive Chantix Starting Month Box 0.5 mg (11)-1 mg (42) table ts in dose pack RxNorm: 150322 Tablet(s) PO as directed 01/20/2017 01/28/2017 Inactive gabapentin 600 mg tablet RxNorm: 025697 1 Tablet(s) PO TID 01/21/20 17 02/22/2017 Inactive Chantix Continuing Month Box 1 mg tablet RxNorm: 121056 1 Table t(s) PO BID 12/31/2016 06/01/2017 Inactive Spiriva with HandiHaler 18 mcg and inhalation capsules RxNor m: 282482 INHALE THE ENTIRE CONTENTS OF 1 CAPSULE ONCE A DAY USING HANDIHALER 12/31/201607/2017 Inactive Synthroid 112 mcg tablet RxNorm: 757338 TAKE ONE TABLET BY MOUT H DAILY 12/30/2016 03/01/2017 Inactive metformin ER 500 mg tablet,extended release 24 hr RxNorm: 86 0975 TAKE ONE TABLET BY MOUTH DAILY 12/30/2016 03/01/2017 Inactive Premarin 0.45 mg tablet RxNorm: 659469 TAKE ONE TABLET BY MOUTH DAILY 12/30/2016 03/01/2017 Inactive omeprazole 40 mg capsule,delayed release RxNorm: 010708 TAKE ONE CAPSULE BY MOUTH DAILY 12/30/2016 01/25/2018 Inactive Ventolin HFA 90 mcg/actuation aerosol inhaler RxNorm: 815902 INHALE TWO PUFFS BY MOUTH EVERY 4 HOURS NEEDED 12/28/2016 02/13/2017 Inactive fluoxetine 40 mg capsule RxNorm: 235723 TAKE ONE CAPSULE BY BENOIT TH EVERY MORNING 12/15/2016 04/20/2017 Inactive Chantix Continuing Month Box 1 mg tablet RxNorm: 673604 TAKE ONE TABLET BY MOUTH TWICE A DAY 12/04/2016 12/31/2016 Inactive doxycycline hyclate 100 mg capsule RxNorm: 5957517 1 Capsule(s) PO BID 12/01/2016 12/07/2016 Inactive Levaquin 750 mg tablet RxNorm: 647601 1 Tablet(s) PO QD 12/01/2016 Inactive Abilify 2 mg tablet RxNorm: 482067 TAKE ONE TABLET BY MOUTH DAILY 0 11/25/2016 11/30/2016 Inactive Ventolin HFA 90 mcg/actuation aerosol inhaler RxNorm: 674123 INHALE TWO PUFFS BY MOUTH EVERY 4 HOURS NEEDED 11/02/2016 12/19/2016 Inactive Chantix Continuing Month Box 1 mg tablet RxNorm: 475544 Tablet(s) PO as directed 10/30/2016 12/03/2016 Inactive Symbicort 160 mcg-4.5 mcg/actuation HFA aerosol inhaler RxNo rm: 6974294 INHALE TWO PUFFS TWO TIMES A DAY 10/30/2016 03/30/2017 Inactive Abilify 2 mg tablet RxNorm: 597202 1 Tablet(s) PO QD 10/27/201611/24 Inactive amoxicillin 500 mg capsule RxNorm: 185672 1 Capsule(s) PO TID 10/1410/23/2016 Inactive amoxicillin 500 mg capsule RxNorm: 384434 1 Capsule(s) PO TID 10/1410/13/2016 Inactive Synthroid 112 mcg tablet RxNorm: 846361 TAKE ONE TABLET BY MOUT H DAILY 09/28/2016 12/29/2016 Inactive Topamax 100 mg tablet RxNorm: 153901 TAKE ONE TABLET BY MOUTH EVERY NIGHT AT BEDTIME 09/28/2016 01/28/2017 Inactive Premarin 0.45 mg tablet RxNorm: 776754 TAKE ONE TABLET BY MOUTH DAILY 09/28/2016 12/29/2016 Inactive metformin ER 500 mg tablet,extended release 24 hr RxNorm: 86 0975 TAKE ONE TABLET BY MOUTH DAILY 09/28/2016 12/29/2016 Inactive Ventolin HFA 90 mcg/actuation aerosol inhaler RxNorm: 807656 INHALE TWO PUFFS BY MOUTH EVERY 4 HOURS NEEDED 09/22/2016 10/23/2016 Inactive Pulmicort 1 mg/2 mL suspension for nebulization RxNorm: 6168 19 1 Unit Dose INH BID Dx: COPD (J44.9) 09/10/2016 08/16/2017 Inactive Pulmicort 1 mg/2 mL suspension for nebulization RxNorm: 6168 19 1 Unit Dose INH BID 09/10/2016 09/09/2016 Inactive Brovana 15 mcg/2 mL solution for nebulization RxNorm: 055126 1 Unit Dose INH BID Dx: COPD (J44.9) 09/10/2016 01/25/2018 Inactive Brovana 15 mcg/2 mL solution for nebulization RxNorm: 580612 1 Unit Dose INH BID 09/10/2016 09/09/2016 Inactive ipratropium-albuterol 0.5 mg-3 mg(2.5 mg base)/3 mL ne bulization soln RxNorm: 4448819 1 Unit Dose INH Q4H as needed Dx: COPD (J44.9) 09/10/2016 0 02/12/2019 Inactive orphenadrine citrate ER 100 mg tablet,extended release RxNor m: 463090 1 Tablet(s) PO BID for muscle spasm--replaces methocarbamol 09/09/2016 Inactive Chantix Continuing Month Box 1 mg tablet RxNorm: 361905 Tablet(s) PO as directed 09/09/2016 10/30/2016 Inactive orphenadrine citrate ER 100 mg tablet,extended release RxNor m: 855222 1 Tablet(s) PO BID for muscle spasm 09/09/2016 09/08/2016 Inactive Spiriva with HandiHaler 18 mcg and inhalation capsules RxNor m: 754298 INHALE THE ENTIRE CONTENTS OF 1 CAPSULE ONCE A DAY USING HANDIHALER 09/01/201605/2017 Inactive Daliresp 500 mcg tablet RxNorm: 0288592 1 Tablet(s) PO QD 08/27/2016 03/01/2017 Inactive prednisone 20 mg tablet RxNorm: 133531 3 Tablet(s) PO T ID for 3 days then 1 po BID for 3 days then one daily for 3 days 08/26/2016 04/28/2017 Inactiv e Wellbutrin XL 300 mg 24 hr tablet, extended release RxNorm: 445848 TAKE ONE TABLET BY MOUTH EVERY MORNING 07/29/2016 10/26/2016 Inactive gabapentin 600 mg tablet RxNorm: 061746 1 Tablet(s) PO BID 06/26/20 16 12/22/2016 Inactive fluoxetine 40 mg capsule RxNorm: 311485 TAKE ONE CAPSULE BY BENOIT TH EVERY MORNING 06/24/2016 11/20/2016 Inactive Duragesic 100 mcg/hr transdermal patch RxNorm: 975290 2 Application TD Q48H for pain 06/05/2016 07/04/2016 Inactive oxycodone 10 mg tablet RxNorm: 7566328 1-2 Tablet(s) PO QID as n eeded for pain 06/05/2016 03/17/2017 Inactive Belladonna-Phenobarbital 48 mg tablet,extended release RxNor m: 2 Tablet(s) PO TID 06/05/2016 01/19/2017 Inactive Premarin 0.45 mg tablet RxNorm: 727257 TAKE ONE TABLET BY MOUTH DAILY 05/27/2016 09/23/2016 Inactive Topamax 100 mg tablet RxNorm: 580341 TAKE ONE TABLET BY MOUTH EVERY NIGHT AT BEDTIME 05/27/2016 09/27/2016 Inactive Synthroid 112 mcg tablet RxNorm: 551435 TAKE ONE TABLET BY MOUT H DAILY 05/27/2016 09/23/2016 Inactive metformin ER 500 mg tablet,extended release 24 hr RxNorm: 86 0975 TAKE ONE TABLET BY MOUTH DAILY 05/27/2016 09/23/2016 Inactive Symbicort 160 mcg-4.5 mcg/actuation HFA aerosol inhaler RxNo rm: 0653622 INHALE TWO PUFFS TWO TIMES A DAY 05/27/2016 10/23/2016 Inactive Ventolin HFA 90 mcg/actuation aerosol inhaler RxNorm: 010826 INHALE TWO PUFFS BY MOUTH EVERY 4 HOURS NEEDED 05/21/2016 07/07/2016 Inactive omeprazole 40 mg capsule,delayed release RxNorm: 602695 1 Capsu le(s) PO QD 05/06/2016 08/03/2016 Inactive metformin ER 500 mg tablet,extended release 24 hr RxNorm: 86 0975 TAKE ONE TABLET BY MOUTH DAILY 04/23/2016 05/22/2016 Inactive methocarbamol 750 mg tablet RxNorm: 270127 2 Tablet(s) PO TID as needed for muscle spasm 04/23/2016 09/08/2016 Inactive Synthroid 112 mcg tablet RxNorm: 987706 TAKE ONE TABLET BY MOUT H DAILY 04/23/2016 05/22/2016 Inactive Spiriva with HandiHaler 18 mcg and inhalation capsules RxNor m: 913008 INHALE THE ENTIRE CONTENTS OF 1 CAPSULE ONCE A DAY USING HANDIHALER 04/09/201608/2016 Inactive Diflucan 100 mg tablet RxNorm: 598558 1 Tablet(s) PO QD 04/08/2016 Inactive doxycycline hyclate 100 mg capsule RxNorm: 7296617 1 Capsule(s) PO BID 04/08/2016 04/17/2016 Inactive doxycycline hyclate 100 mg capsule RxNorm: 4942000 1 Capsule(s) PO BID 04/08/2016 04/07/2016 Inactive Diflucan 100 mg tablet RxNorm: 438335 1 Tablet(s) PO QD 04/08/2016 Inactive ondansetron HCl 4 mg tablet RxNorm: 393376 1 Tablet(s) PO Q4H as needed for nausea and vomiting 04/08/2016 09/22/2017 Inactive gabapentin 600 mg tablet RxNorm: 210579 TAKE ONE TABLET BY MOUT H TWICE A DAY 03/24/2016 06/25/2016 Inactive Synthroid 112 mcg tablet RxNorm: 432249 TAKE ONE TABLET BY MOUT H DAILY 02/25/2016 04/22/2016 Inactive Levaquin 500 mg tablet RxNorm: 104897 1 Tablet(s) PO QD 01/23/2016 Inactive prednisone 20 mg tablet RxNorm: 271355 1 Tablet(s) PO T ID for 3 days then 1 po BID for 3 days then one daily for 3 days 01/23/2016 08/25/2016 Inactiv e [employer] Ultra Test strips RxNorm: TEST BLOOD SUGAR ONCE DAILY 250.00 01/09/2016 11/04/2017 Inactive methocarbamol 750 mg tablet RxNorm: 726650 2 Tablet(s) PO TID as needed for muscle spasm 01/09/2016 04/23/2016 Inactive lactulose 10 gram/15 mL oral solution RxNorm: 668348 [address](s) PO QD 01/09/2016 09/22/2017 Inactive TAKE 1 TABLESPOON BY MOUTH ONCE DAILY metformin ER 500 mg tablet,extended release 24 hr RxNorm: 86 0975 1 Tablet(s) PO QD 12/26/2015 04/22/2016 Inactive fluoxetine 20 mg capsule RxNorm: 054958 1 Capsule(s) PO QD 12/23/19 16 06/19/2016 Inactive Premarin 0.45 mg tablet RxNorm: 120183 TAKE ONE TABLET BY MOUTH DAILY 12/23/2015 05/20/2016 Inactive fluoxetine 40 mg capsule RxNorm: 898231 1 Capsule(s) PO QD 12/23/19 16 06/19/2016 Inactive TAKE ONE CAPSULE BY MOUTH EV JANKI MORNING azithromycin 500 mg tablet RxNorm: 644739 1 Tablet(s) PO QD 016 12/19/2015 Inactive Zofran 4 mg tablet RxNorm: 013827 1 Tablet(s) PO Q4H prn nausea /vomiting 12/13/2015 03/30/2018 Inactive azithromycin 500 mg tablet RxNorm: 570563 1 Tablet(s) PO QD 016 12/12/2015 Inactive Duragesic 100 mcg/hr transdermal patch RxNorm: 189353 2 Application TD Q48H for pain 12/09/2015 01/07/2016 Inactive oxycodone 10 mg tablet RxNorm: 8232794 1-2 Tablet(s) PO QID as n eeded for pain 12/09/2015 06/04/2016 Inactive Bactroban 2 % topical cream RxNorm: 291324 Application TOP BID 11/2208/25/2016 Inactive doxycycline hyclate 100 mg capsule RxNorm: 8594328 1 Capsule(s) PO BID 12/03/2015 12/12/2015 Inactive Topamax 100 mg tablet RxNorm: 310017 TAKE ONE TABLET BY MOUTH EVERY NIGHT AT BEDTIME 11/25/2015 05/22/2016 Inactive Symbicort 160 mcg-4.5 mcg/actuation HFA aerosol inhaler RxNo rm: 3812844 INHALE TWO PUFFS TWO TIMES A DAY 11/25/2015 05/22/2016 Inactive Synthroid 112 mcg tablet RxNorm: 018982 Tablet(s) TAKE ONE TABLET BY MOUTH DAILY 11/25/2015 02/22/2016 Inactive omeprazole 40 mg capsule,delayed release RxNorm: 186024 1 Capsu le(s) PO QD 11/12/2015 05/05/2016 Inactive oxycodone 10 mg tablet RxNorm: 4537329 1-2 Tablet(s) PO QID as n eeded for pain 11/05/2015 12/08/2015 Inactive Duragesic 100 mcg/hr transdermal patch RxNorm: 595521 2 Application TD Q48H for pain 11/05/2015 12/04/2015 Inactive omeprazole 40 mg capsule,delayed release RxNorm: 200878 1 Capsu le(s) PO QD 10/07/2015 11/11/2015 Inactive Januvia 100 mg tablet RxNorm: 396477 TAKE ONE TABLET BY MOUTH DAILY 09/11/2015 12/25/2015 Inactive Zithromax 500 mg tablet RxNorm: 702885 1 Tablet(s) PO QD 09/10/2015 1 Inactive prednisone 20 mg tablet RxNorm: 390442 1 Tablet(s) PO T ID for 3 days then 1 po BID for 3 days then one daily for 3 days 09/10/2015 08/25/2016 Inactiv e Wellbutrin XL 300 mg 24 hr tablet, extended release RxNorm: 582619 1 Tablet(s) PO QAM 09/10/2015 12/02/2015 Inactive Topamax 100 mg tablet RxNorm: 612267 TAKE ONE TABLET BY MOUTH EVERY NIGHT AT BEDTIME 09/02/2015 11/24/2015 Inactive Synthroid 112 mcg tablet RxNorm: 202513 TAKE ONE TABLET BY MOUT H DAILY 09/02/2015 11/25/2015 Inactive methocarbamol 750 mg tablet RxNorm: 303150 2 Tablet(s) PO TID as needed for muscle spasm 08/15/2015 01/09/2016 Inactive Wellbutrin XL 150 mg 24 hr tablet, extended release RxNorm: 698402 TAKE ONE TABLET BY MOUTH EVERY MORNING 08/13/2015 08/13/2015 Inactive gabapentin 600 mg tablet RxNorm: 669659 1 Tablet(s) PO BID 08/13/20 15 02/08/2016 Inactive Wellbutrin XL 300 mg 24 hr tablet, extended release RxNorm: 667675 1 Tablet(s) PO QAM 08/06/2015 09/09/2015 Inactive Wellbutrin XL 150 mg 24 hr tablet, extended release RxNorm: 020310 1 Tablet(s) PO QAM 07/18/2015 08/05/2015 Inactive prednisone 20 mg tablet RxNorm: 559587 1 Tablet(s) PO BID 07/18/2015 07/22/2015 Inactive doxycycline hyclate 100 mg tablet,delayed release RxNorm: 43 4018 1 Tablet(s) PO BID 07/18/2015 07/27/2015 Inactive pravastatin 40 mg tablet RxNorm: 101844 1 Tablet(s) PO QD NEEDS FASTING LAB 07/15/2015 07/14/2015 Inactive pravastatin 40 mg tablet RxNorm: 581005 1 Tablet(s) PO QD NEEDS FASTING LAB 07/15/2015 01/25/2018 Inactive Ventolin HFA 90 mcg/actuation aerosol inhaler RxNorm: 202238 2 Puff(s) INH Q4H 07/08/2015 07/07/2015 Inactive prn Premarin 0.45 mg tablet RxNorm: 354393 1 Tablet(s) PO QD 07/01/2015 0 12/22/2015 Inactive pravastatin 40 mg tablet RxNorm: 337720 1 Tablet(s) PO QD NEEDS FASTING LAB 06/14/2015 07/15/2015 Inactive Ventolin HFA 90 mcg/actuation aerosol inhaler RxNorm: 9538230 2 Puff(s) INH Q4H 06/06/2015 07/08/2015 Inactive prn albuterol sulfate 2.5 mg/3 mL (0.083 %) solution for n ebulization RxNorm: 603141 1 Unit Dose INH QID 05/30/2015 No Stop Date Active Duragesic 100 mcg/hr transdermal patch RxNorm: 831392 2 Application TD Q48H for pain 04/29/2015 05/28/2015 Inactive gabapentin 600 mg tablet RxNorm: 427943 1 Tablet(s) PO BID 04/11/20 15 08/13/2015 Inactive Onglyza 5 mg tablet RxNorm: 359218 1 Tablet(s) PO QD for blood suga r 04/10/2015 04/15/2015 Inactive [Brand Copay Card: RxBIN:[id number] PCN:CRISTIANA RxGRP:[id number] ID#:[id number]] methocarbamol 750 mg tablet RxNorm: 854899 2 Tablet(s) PO TID as needed for muscle spasm 03/28/2015 08/15/2015 Inactive pravastatin 40 mg tablet RxNorm: 432496 1 Tablet(s) PO QD 03/19/2015 03/18/2015 Inactive pravastatin 40 mg tablet RxNorm: 935788 1 Tablet(s) PO QD 03/19/2015 06/14/2015 Inactive lactulose 10 gram/15 mL oral solution RxNorm: 776134 [address]s) PO QD 03/07/2015 01/09/2016 Inactive TAKE 1 TABLESPOON BY MOUTH ONCE DAILY oxycodone 20 mg tablet RxNorm: 2721857 1 Tablet(s) PO QID as nee ded for pain 03/05/2015 07/08/2015 Inactive Topamax 100 mg tablet RxNorm: 606928 1 Tablet(s) PO QHS TAKE ONE TABLET BY MOUTH AT BEDTIME 02/25/2015 02/12/2019 Inactive metformin ER 500 mg tablet,extended release 24 hr RxNorm: 86 0975 1 Tablet(s) PO QD 02/11/2015 03/04/2015 Inactive take one tablet by mouth every day Daliresp 500 mcg tablet RxNorm: 2257152 1 Tablet(s) PO QD 02/11/2015 08/09/2015 Inactive Endocet 10 mg-325 mg tablet RxNorm: 5407895 1 Tablet(s) PO Q4H as needed for pain 01/23/2015 01/23/2015 Inactive gabapentin 600 mg tablet RxNorm: 020123 1 Tablet(s) PO BID 01/23/20 15 04/11/2015 Inactive methocarbamol 750 mg tablet RxNorm: 704680 2 Tablet(s) PO TID as needed for muscle spasm 01/15/2015 02/13/2015 Inactive fluoxetine 40 mg capsule RxNorm: 898540 1 Capsule(s) PO QD 01/14/20 15 12/23/2015 Inactive TAKE ONE CAPSULE BY MOUTH EV JNAKI MORNING fluoxetine 20 mg capsule RxNorm: 900484 1 Capsule(s) PO QD 01/14/20 15 12/23/2015 Inactive Premarin 0.45 mg tablet RxNorm: 131807 1 Tablet(s) PO QD 01/02/2015 0 07/01/2015 Inactive Endocet 10 mg-325 mg tablet RxNorm: 9998674 1-2 Tablet(s) PO Q4H 02/12/2019 Inactive PRN PAIN Duragesic 100 mcg/hr transdermal patch RxNorm: 309784 2 Application TD Q48H for pain 12/25/2014 01/23/2015 Inactive Topamax 100 mg tablet RxNorm: 442146 1 Tablet(s) PO QHS TAKE ONE TABLET BY MOUTH AT BEDTIME 12/25/2014 02/24/2015 Inactive Tudorza Pressair 400 mcg/actuation breath activated RxNorm: 4934908 1 BID INHALE ONE PUFF INTO LUNGS TWO TIMES A DAY 12/17/2014 05/15/2015 Inactive Endocet 10 mg-325 mg tablet RxNorm: 9525857 1-2 Tablet(s) PO Q4H 12/19/2014 Inactive PRN PAIN Duragesic 100 mcg/hr transdermal patch RxNorm: 983861 2 Application TD Q48H for pain 11/20/2014 12/24/2014 Inactive [employer] Ultra Test strips RxNorm: TEST BLOOD SUGAR ONCE DAILY 250.00 11/16/2014 01/08/2016 Inactive omeprazole 40 mg capsule,delayed release RxNorm: 041718 1 Capsu le(s) PO QD 11/13/2014 11/12/2015 Inactive metformin ER 500 mg tablet,extended release 24 hr RxNorm: 86 0975 1 Tablet(s) PO QD 11/12/2014 02/11/2015 Inactive take one tablet by mouth every day Symbicort 160 mcg-4.5 mcg/actuation HFA aerosol inhaler RxNo rm: 0020968 2 Puff(s) INH BID 11/12/2014 03/11/2015 Inactive INHALE 2 PUFFS O RALLY TWO TIMES A DAY gabapentin 800 mg tablet RxNorm: 395436 1 Tablet(s) PO QD TAKE ONE TABLET BY MOUTH ONCE A DAY 10/22/2014 01/01/2015 Inactive Endocet 10 mg-325 mg tablet RxNorm: 7706711 1-2 Tablet(s) PO Q4H 11/15/2014 Inactive PRN PAIN Duragesic 100 mcg/hr transdermal patch RxNorm: 448633 2 Application TD Q48H for pain 10/17/2014 11/19/2014 Inactive gabapentin 800 mg tablet RxNorm: 896603 1 Tablet(s) PO QD TAKE ONE TABLET BY MOUTH ONCE A DAY 10/04/2014 10/21/2014 Inactive Premarin 0.9 mg tablet RxNorm: 562528 1 Tablet(s) PO QD TAKE ONE TABLET BY MOUTH ONCE A DAY 10/04/2014 01/01/2015 Inactive Spiriva with HandiHaler 18 mcg & inhalation capsules RxNorm: 658396 1 Capsule(s) INH QD 10/03/2014 04/30/2015 Inactive Levaquin 500 mg tablet RxNorm: 393698 1 Tablet(s) PO QD 10/03/2014 Inactive prednisone 20 mg tablet RxNorm: 702263 1 Tablet(s) PO QD 10/03/2014 1 12/09/2013 Inactive Duragesic 100 mcg/hr transdermal patch RxNorm: 051832 2 Application TD Q48H for pain 09/18/2014 10/16/2014 Inactive Endocet 10 mg-325 mg tablet RxNorm: 8678060 1-2 Tablet(s) PO Q4H 10/16/2014 Inactive PRN PAIN Synthroid 112 mcg tablet RxNorm: 220261 1 Tablet(s) QD 09/10/2014 Inactive Synthroid 112 mcg tablet RxNorm: 749379 TAKE ONE TABLET BY MOUTH ONE TIME A DAY. NEEDS LABS 09/10/2014 02/06/2015 Inactive omeprazole 40 mg capsule,delayed release RxNorm: 481638 1 Capsu le(s) PO QD 09/03/2014 11/13/2014 Inactive omeprazole 40 mg capsule,delayed release RxNorm: 957239 1 Capsu le(s) PO QD 09/03/2014 09/02/2014 Inactive Spiriva with HandiHaler 18 mcg & inhalation capsules RxNorm: 224107 1 Capsule(s) INH QD 08/27/2014 10/02/2014 Inactive gabapentin 600 mg tablet RxNorm: 495318 1 Tablet(s) PO BID 08/27/20 14 10/22/2014 Inactive Endocet 10 mg-325 mg tablet RxNorm: 0926970 1-2 Tablet(s) PO Q4H 09/17/2014 Inactive PRN PAIN fentanyl 100 mcg/hr transdermal patch RxNorm: 681287 1 Unit Dos e TD QD 08/21/2014 09/19/2014 Inactive Daliresp 500 mcg tablet RxNorm: 3929679 1 Tablet(s) PO QD 08/13/2014 02/11/2015 Inactive Synthroid 112 mcg tablet RxNorm: 054585 TAKE ONE TABLET BY MOUTH ONE TIME A DAY. NEEDS LABS 08/10/2014 09/10/2014 Inactive Endocet 10 mg-325 mg tablet RxNorm: 8487443 1-2 Tablet(s) PO Q4H 08/17/2014 Inactive PRN PAIN Duragesic 100 mcg/hr transdermal patch RxNorm: 838658 2 Application TD Q48H for pain 07/19/2014 09/17/2014 Inactive fluoxetine 40 mg capsule RxNorm: 143704 1 Capsule(s) PO QD 07/17/20 14 01/14/2015 Inactive TAKE ONE CAPSULE BY MOUTH EV JANKI MORNING fluoxetine 20 mg capsule RxNorm: 179708 1 Capsule(s) PO QD 07/17/20 14 01/14/2015 Inactive Spiriva with HandiHaler 18 mcg & inhalation capsules RxNorm: 558293 1 Capsule(s) INH QD 07/17/2014 08/26/2014 Inactive INHALE CONTENTS OF 1 CAPSULE(S) WITH HANDIHALER ONCE DAILY Zofran 4 mg tablet RxNorm: 106367 1 Tablet(s) PO Q4H prn nausea 07/25/2014 Inactive Synthroid 112 mcg tablet RxNorm: 474225 1 Tablet(s) PO QD 07/09/2014 07/09/2014 Inactive methocarbamol 750 mg tablet RxNorm: 823241 2 Tablet(s) PO TID as needed for muscle spasm 07/09/2014 09/06/2014 Inactive Synthroid 112 mcg tablet RxNorm: 795909 1 Tablet(s) PO QD - nee d labs 07/09/2014 08/07/2014 Inactive Medrol (Aníbal) 4 mg tablets in a dose pack RxNorm: 399208 6 Tablet(s) PO QD --then as directed 07/03/2014 07/08/2014 Inactive Tudorza Pressair 400 mcg/actuation breath activated RxNorm: 1929833 1 Puff(s) INH BID 07/03/2014 12/17/2014 Inactive cefdinir 300 mg capsule RxNorm: 237962 1 Capsule(s) PO BID 07/03/20 14 07/12/2014 Inactive Topamax 100 mg tablet RxNorm: 209384 Tablet(s) TAKE ONE TABLET BY MOUTH AT BEDTIME 07/02/2014 02/25/2015 Inactive Duragesic 100 mcg/hr transdermal patch RxNorm: 014903 2 Application TD Q48H for pain 06/25/2014 07/18/2014 Inactive Endocet 10 mg-325 mg tablet RxNorm: 8129983 1-2 Tablet(s) PO Q4H 07/18/2014 Inactive PRN PAIN metformin ER 500 mg tablet,extended release 24 hr RxNorm: 86 0975 1 Tablet(s) PO QD Needs labs 06/18/2014 07/01/2014 Inactive take one tablet by mouth every day Duragesic 100 mcg/hr transdermal patch RxNorm: 039541 2 Application TD Q48H for pain 05/22/2014 06/24/2014 Inactive Synthroid 112 mcg tablet RxNorm: 325773 1 Tablet(s) PO QD 05/22/2014 07/09/2014 Inactive Endocet 10 mg-325 mg tablet RxNorm: 1489538 1-2 Tablet(s) PO Q4H 06/20/2014 Inactive PRN PAIN Endocet 10 mg-325 mg tablet RxNorm: 2324972 1-2 Tablet(s) PO Q4H 05/21/2014 Inactive PRN PAIN Duragesic 100 mcg/hr transdermal patch RxNorm: 983239 2 Application TD Q48H for pain 04/25/2014 05/21/2014 Inactive Daliresp 500 mcg tablet RxNorm: 7630015 1 Tablet(s) PO QD 04/24/2014 08/13/2014 Inactive Symbicort 160 mcg-4.5 mcg/actuation HFA aerosol inhaler RxNo rm: 2895196 2 Puff(s) INH BID 04/24/2014 08/21/2014 Inactive INHALE 2 PUFFS O RALLY TWO TIMES A DAY metformin ER 500 mg tablet,extended release 24 hr RxNorm: 86 0975 1 Tablet(s) PO QD 04/24/2014 11/12/2014 Inactive TAKE ONE TABLET BY MOUTH EVERY DAY [AttnRPh:Saving Apply/Adjudicate RxGRP:LDMGRP RxBIN:[id number] RxPCN:2012 PCode:01 ID#:[id number]] Symbicort 160 mcg-4.5 mcg/actuation HFA aerosol inhaler RxNo rm: 3083409 2 Puff(s) INH BID 04/24/2014 11/12/2014 Inactive INHALE 2 PUFFS O RALLY TWO TIMES A DAY Premarin 0.9 mg tablet RxNorm: 794086 1 Tablet(s) PO QD 04/24/2014 Inactive TAKE ONE TABLET BY MOUTH EVERY DAY metformin ER 500 mg tablet,extended release 24 hr RxNorm: 86 0975 1 Tablet(s) PO QD Needs labs 04/24/2014 06/18/2014 Inactive TAKE ONE TABLET BY MOUTH EVERY DAY [AttnRPh:Saving Apply/Adjudicate RxGRP:LDMGRP RxBIN:[id number] RxPCN:2012 PCode:01 ID#:[id number]] gabapentin 800 mg tablet RxNorm: 255054 1 Tablet(s) PO QD 04/24/2014 10/04/2014 Inactive TAKE ONE TABLET BY MOUTH EVERY DAY Topamax 100 mg tablet RxNorm: 012488 1 Tablet(s) PO QHS 04/17/2014 Inactive Topamax 100 mg tablet RxNorm: 043825 TAKE ONE TABLET BY MOUTH A T BEDTIME 04/17/2014 07/01/2014 Inactive Tudorza Pressair 400 mcg/actuation breath activated RxNorm: 4091194 1 Puff(s) INH BID 04/11/2014 07/02/2014 Inactive Duragesic 100 mcg/hr transdermal patch RxNorm: 304276 2 Application TD Q48H for pain 03/27/2014 04/24/2014 Inactive Endocet 10 mg-325 mg tablet RxNorm: 3956594 1-2 Tablet(s) PO Q4H 04/24/2014 Inactive PRN PAIN Robaxin 750 mg tablet RxNorm: 572466 2 Tablet(s) PO TID as need ed for spasm 02/23/2014 03/28/2015 Inactive Duragesic 100 mcg/hr transdermal patch RxNorm: 674678 2 Application TD Q48H for pain 02/23/2014 No Stop Date Active Endocet 10 mg-325 mg tablet RxNorm: 8626053 1-2 Tablet(s) PO Q4H 03/23/2014 Inactive PRN PAIN Synthroid 112 mcg tablet RxNorm: 349238 1 Tablet(s) PO QD TAKE ONE TABLET BY MOUTH EVERY DAY 02/15/2014 05/22/2014 Inactive Zithromax 500 mg tablet RxNorm: 977788 1 Tablet(s) PO QD 01/30/2014 0 02/05/2014 Inactive Diflucan 100 mg tablet RxNorm: 475450 1 Tablet(s) PO QD 01/30/2014 Inactive prednisone 20 mg tablet RxNorm: 579038 1 Tablet(s) PO BID 01/30/2014 02/05/2014 Inactive fluoxetine 40 mg capsule RxNorm: 361175 1 Capsule(s) PO QD 01/23/20 14 07/16/2014 Inactive TAKE ONE CAPSULE BY MOUTH EV JANKI MORNING fluoxetine 40 mg capsule RxNorm: 531981 1 Capsule(s) PO QD 01/23/20 14 07/17/2014 Inactive TAKE ONE CAPSULE BY MOUTH EV JANKI MORNING cefdinir 300 mg capsule RxNorm: 299774 1 Capsule(s) PO BID 01/16/20 14 01/29/2014 Inactive Zithromax 500 mg tablet RxNorm: 404273 1 Tablet(s) PO QD 01/16/2014 0 01/22/2014 Inactive prednisone 20 mg tablet RxNorm: 309311 1 Tablet(s) PO BID 01/16/2014 01/22/2014 Inactive Spiriva with HandiHaler 18 mcg and inhalation capsules RxNor m: 173048 1 Capsule(s) INH QD 12/18/2013 07/17/2014 Inactive INHALE CONTENT S OF 1 CAPSULE(S) WITH HANDIHALER ONCE DAILY fluoxetine 20 mg capsule RxNorm: 457649 1 Capsule(s) PO QD 12/18/19 14 06/15/2014 Inactive Spiriva with HandiHaler 18 mcg & inhalation capsules RxNorm: 022022 1 Capsule(s) INH QD 12/18/2013 06/15/2014 Inactive INHALE CONTENTS OF 1 CAPSULE(S) WITH HANDIHALER ONCE DAILY fluoxetine 20 mg capsule RxNorm: 729379 1 Capsule(s) PO QD 12/18/19 14 07/17/2014 Inactive cefdinir 300 mg capsule RxNorm: 796527 2 Capsule(s) PO QD 12/12/2013 12/21/2013 Inactive Duragesic 100 mcg/hr transdermal patch RxNorm: 174465 2 Application TD Q48H for pain 12/08/2013 12/07/2013 Inactive Topamax 100 mg tablet RxNorm: 629920 1 Tablet(s) PO QHS 12/04/2013 Inactive Endocet 10 mg-325 mg tablet RxNorm: 8869831 1-2 Tablet(s) PO Q4H 12/26/2013 Inactive PRN PAIN Robaxin 750 mg tablet RxNorm: 871791 2 Tablet(s) PO TID as need ed for spasm 11/07/2013 01/05/2014 Inactive gabapentin 800 mg tablet RxNorm: 170684 1 Tablet(s) PO QD 10/16/2013 04/24/2014 Inactive TAKE ONE TABLET BY MOUTH EVERY DAY Symbicort 160 mcg-4.5 mcg/actuation HFA aerosol inhaler RxNo rm: 2886687 2 Puff(s) INH BID 10/16/2013 04/24/2014 Inactive INHALE 2 PUFFS O RALLY TWO TIMES A DAY Premarin 0.9 mg tablet RxNorm: 435754 1 Tablet(s) PO QD 10/16/2013 Inactive TAKE ONE TABLET BY MOUTH EVERY DAY metformin ER 500 mg tablet,extended release 24 hr RxNorm: 86 0975 1 Tablet(s) PO QD 10/16/2013 04/24/2014 Inactive TAKE ONE TABLET BY MOUTH EVERY DAY Daliresp 500 mcg tablet RxNorm: 2606516 1 Tablet(s) PO QD 10/16/2013 04/24/2014 Inactive Robaxin 750 mg tablet RxNorm: 363528 2 Tablet(s) PO TID as need ed for spasm 10/10/2013 11/06/2013 Inactive Duragesic 100 mcg/hr transdermal patch RxNorm: 634485 2 Application TD Q48H for pain 10/09/2013 No Stop Date Active Soma 350 mg tablet RxNorm: 048603 1 Tablet(s) PO TID 09/27/201310/09 Inactive TAKE ONE TABLET BY MOUTH THREE TIMES A D AY lactulose 10 gram/15 mL oral solution RxNorm: 594922 [address](s) PO QD 09/13/2013 03/07/2015 Inactive TAKE 1 TABLESPOON BY MOUTH ONCE DAILY Duragesic 100 mcg/hr transdermal patch RxNorm: 148568 2 Application TD Q48H for pain 09/06/2013 No Stop Date Active Endocet 10 mg-325 mg tablet RxNorm: 4996318 1-2 Tablet(s) PO Q4H 09/27/2013 Inactive PRN PAIN lancets 28 gauge RxNorm: Miscellaneous As needed for blo od glucose sticks 08/24/2013 No Stop Date Active 16.2 mg-0.1037 mg-0.0194 mg tablet RxNorm: 4067959 Tablet(s) PO PRN for gas and cramping 08/24/2013 01/19/2017 Inactive TAKE TWO TABLET S BY MOUTH THREE TIMES A DAY NEEDED FOR GAS AND CRAMPING Topamax 100 mg tablet RxNorm: 583294 1 Tablet(s) PO QHS 07/31/2013 Inactive Diflucan 100 mg tablet RxNorm: 389393 1 Tablet(s) PO QD 07/27/2013 Inactive cefdinir 300 mg capsule RxNorm: 373644 1 Capsule(s) PO BID 07/26/20 13 08/08/2013 Inactive Daliresp 500 mcg tablet RxNorm: 8242595 1 Tablet(s) PO QD 07/25/2013 10/15/2013 Inactive fluoxetine 40 mg capsule RxNorm: 173860 1 Capsule(s) PO QD 07/25/20 13 01/22/2014 Inactive TAKE ONE CAPSULE BY MOUTH EV JANKI MORNING Senokot-S 8.6 mg-50 mg tablet RxNorm: 7181161 1 Tablet(s) PO BID 10/25/2013 Inactive doxycycline hyclate 100 mg capsule RxNorm: 3877308 1 Capsule(s) PO BID 06/28/2013 07/07/2013 Inactive prednisone 20 mg tablet RxNorm: 516372 1 Tablet(s) PO BID 06/28/2013 07/04/2013 Inactive Zofran 4 mg tablet RxNorm: 283241 1 Tablet(s) PO Q4H prn nausea 03/201307/05/2013 Inactive Spiriva with HandiHaler 18 mcg & inhalation capsules RxNorm: 204428 1 Capsule(s) INH QD 06/26/2013 12/18/2013 Inactive INHALE CONTENTS OF 1 CAPSULE(S) WITH HANDIHALER ONCE DAILY Synthroid 112 mcg tablet RxNorm: 351113 1 Tablet(s) PO QD TAKE ONE TABLET BY MOUTH EVERY DAY 06/19/2013 02/15/2014 Inactive fluoxetine 20 mg capsule RxNorm: 088678 1 Capsule(s) PO QD 06/19/20 13 12/18/2013 Inactive Ventolin HFA 90 mcg/actuation Aerosol Inhaler RxNorm: 3585970 2 Puff(s) INH Q4H 06/05/2013 No Stop Date Active prn Soma 350 mg tablet RxNorm: 876029 1 Tablet(s) PO TID 06/05/201307/04 Inactive TAKE ONE TABLET BY MOUTH THREE TIMES A D AY prednisone 20 mg tablet RxNorm: 616873 1 Tablet(s) PO QD 05/31/2013 0 06/06/2013 Inactive Topamax 100 mg tablet RxNorm: 343762 1 Tablet(s) PO QHS 05/22/2013 Inactive Levaquin 500 mg tablet RxNorm: 212223 1 Tablet(s) PO QD 05/03/2013 Inactive Diflucan 100 mg tablet RxNorm: 943516 1 Tablet(s) PO QD 05/03/2013 Inactive Daliresp 500 mcg tablet RxNorm: 3711065 1 Tablet(s) PO QD 05/01/2013 07/24/2013 Inactive Daliresp 500 mcg tablet RxNorm: 6992295 1 Tablet(s) PO QD 05/01/2013 04/30/2013 Inactive gabapentin 800 mg tablet RxNorm: 090469 1 Tablet(s) PO QD 04/10/2013 10/06/2013 Inactive TAKE ONE TABLET BY MOUTH EVERY DAY metformin ER 500 mg tablet,extended release 24 hr RxNorm: 86 0977 1 Tablet(s) PO QD 04/10/2013 10/06/2013 Inactive TAKE ONE TABLET BY MOUTH EVERY DAY Premarin 0.9 mg tablet RxNorm: 696396 1 Tablet(s) PO QD 04/10/2013 Inactive TAKE ONE TABLET BY MOUTH EVERY DAY Symbicort 160 mcg-4.5 mcg/actuation HFA aerosol inhaler RxNo rm: 4119772 2 Puff(s) INH BID 04/10/2013 10/06/2013 Inactive INHALE 2 PUFFS O RALLY TWO TIMES A DAY Synthroid 112 mcg tablet RxNorm: 736753 1 Tablet(s) PO QD TAKE ONE TABLET BY MOUTH EVERY DAY 04/10/2013 06/18/2013 Inactive Ventolin HFA 90 mcg/actuation Aerosol Inhaler RxNorm: 729229 2 Puff(s) INH Q4H 04/10/2013 No Stop Date Active prn fentanyl 100 mcg/hr transdermal patch RxNorm: 071378 1 Unit Dos e TD QD 04/03/2013 05/02/2013 Inactive Endocet 10 mg-325 mg tablet RxNorm: 0990022 1-2 Tablet(s) PO Q4H 05/02/2013 Inactive PRN PAIN Topamax 100 mg tablet RxNorm: 649551 1 Tablet(s) PO QHS 03/13/2013 Inactive Reglan 10 mg tablet RxNorm: 406892 1 Tablet(s) PO QID b efore meals and at bedtime 03/13/2013 04/09/2015 Inactive fluoxetine 20 mg capsule RxNorm: 477056 1 Capsule(s) PO QD 02/28/20 13 05/27/2013 Inactive Ventolin HFA 90 mcg/actuation Aerosol Inhaler RxNorm: 126947 2 Puff(s) INH Q4H 02/13/2013 No Stop Date Active prn fluoxetine 40 mg capsule RxNorm: 135435 1 Capsule(s) PO QD 01/31/20 13 07/24/2013 Inactive TAKE ONE CAPSULE BY MOUTH EV JANKI MORNING Soma 350 mg tablet RxNorm: 405467 1 Tablet(s) PO TID 01/20/201302/18 Inactive TAKE ONE TABLET BY MOUTH THREE TIMES A D AY Endocet 10 mg-325 mg tablet RxNorm: 6757915 1-2 Tablet(s) PO Q4H 02/06/2013 Inactive PRN PAIN MS Contin 200 mg tablet,extended release RxNorm: 749162 1 Table t(s) PO BID 01/18/2013 02/06/2013 Inactive Ventolin HFA 90 mcg/actuation Aerosol Inhaler RxNorm: 251253 2 Puff(s) INH Q4H 01/04/2013 No Stop Date Active prn Spiriva with HandiHaler 18 mcg & inhalation capsules RxNorm: 319478 1 Capsule(s) INH QD 12/29/2012 06/25/2013 Inactive INHALE CONTENTS OF 1 CAPSULE(S) WITH HANDIHALER ONCE DAILY Spiriva with HandiHaler 18 mcg & inhalation capsules RxNorm: 784448 1 Capsule(s) INH QD 12/26/2012 12/28/2012 Inactive INHALE CONTENTS OF 1 CAPSULE(S) WITH HANDIHALER ONCE DAILY Synthroid 112 mcg tablet RxNorm: 495516 Tablet(s) PO TA KE ONE TABLET BY MOUTH EVERY DAY 12/26/2012 04/09/2013 Inactive Endocet 10 mg-325 mg tablet RxNorm: 6549173 1-2 Tablet(s) PO Q4H 01/17/2013 Inactive PRN PAIN MS Contin 200 mg tablet,extended release RxNorm: 349225 1 Table t(s) PO BID 12/21/2012 01/17/2013 Inactive fluoxetine 20 mg capsule RxNorm: 985091 1 Capsule(s) PO QD 12/06/19 13 02/26/2013 Inactive Synthroid 112 mcg tablet RxNorm: 900986 1 Tablet(s) PO QD 12/06/2012 02/12/2019 Inactive TAKE ONE TABLET BY MOUTH EVERY DAY Ventolin HFA 90 mcg/actuation Aerosol Inhaler RxNorm: 182853 2 Puff(s) INH Q4H 12/06/2012 No Stop Date Active prn Reglan 10 mg tablet RxNorm: 912703 1 Tablet(s) PO QID b efore meals and at bedtime 11/24/2012 03/12/2013 Inactive Topamax 100 mg tablet RxNorm: 254988 1 Tablet(s) PO QHS 11/16/2012 Inactive Ventolin HFA 90 mcg/actuation Aerosol Inhaler RxNorm: 661768 2 Puff(s) INH Q4H 11/09/2012 No Stop Date Active prn gabapentin 800 mg tablet RxNorm: 670571 1 Tablet(s) PO QD 10/27/2012 04/09/2013 Inactive TAKE ONE TABLET BY MOUTH EVERY DAY metformin ER 500 mg tablet,extended release 24 hr RxNorm: 86 0977 1 Tablet(s) PO QD 10/27/2012 04/09/2013 Inactive TAKE ONE TABLET BY MOUTH EVERY DAY Symbicort 160 mcg-4.5 mcg/actuation HFA Aerosol Inhaler RxNo rm: 7912610 2 Puff(s) INH BID 10/27/2012 04/09/2013 Inactive INHALE 2 PUFFS O RALLY TWO TIMES A DAY Premarin 0.9 mg tablet RxNorm: 967522 1 Tablet(s) PO QD 10/27/2012 Inactive TAKE ONE TABLET BY MOUTH EVERY DAY Endocet 10 mg-325 mg tablet RxNorm: 2128999 1-2 Tablet(s) PO Q4H 11/24/2012 Inactive PRN PAIN MS Contin 200 mg tablet,extended release RxNorm: 943088 1 Table t(s) PO BID 10/26/2012 11/24/2012 Inactive Soma 350 mg tablet RxNorm: 802902 1 Tablet(s) PO TID 10/04/201211/02 Inactive TAKE ONE TABLET BY MOUTH THREE TIMES A D AY Ventolin HFA 90 mcg/actuation Aerosol Inhaler RxNorm: 152174 2 Puff(s) INH Q4H 10/03/2012 No Stop Date Active prn Daliresp 500 mcg tablet RxNorm: 9313379 1 Tablet(s) PO QD 09/28/2012 09/27/2012 Inactive Daliresp 500 mcg tablet RxNorm: 5261529 1 Tablet(s) PO QD 09/28/2012 04/25/2013 Inactive fluoxetine 20 mg capsule RxNorm: 813897 1 Capsule(s) PO QD 09/05/2012/06/2012 Inactive Topamax 50 mg tablet RxNorm: 371027 Tablet(s) PO for 1w k then 1 po q HS for 1wk then 2 po q HS 08/29/2012 09/27/2012 Inactive TAKE 1/2 TABLET BY MOUTH AT BEDTIME FOR 1 WEEK, THEN 1 TABLET AT BEDTIME FOR 1 WEEK, THEN 2 TABLETS AT BEDTIME Topamax 100 mg tablet RxNorm: 923361 1 Tablet(s) PO QHS 08/29/2012 Inactive Ventolin HFA 90 mcg/actuation Aerosol Inhaler RxNorm: 177326 2 Puff(s) INH Q4H 08/19/2012 No Stop Date Active prn Ventolin HFA 90 mcg/actuation Aerosol Inhaler RxNorm: 293236 2 Puff(s) INH Q4H 08/15/2012 No Stop Date Active prn Synthroid 112 mcg tablet RxNorm: 829912 1 Tablet(s) PO QD 08/10/2012 11/07/2012 Inactive TAKE ONE TABLET BY MOUTH EVERY DAY Synthroid 112 mcg tablet RxNorm: 147360 1 Tablet(s) PO QD 08/01/2012 08/09/2012 Inactive TAKE ONE TABLET BY MOUTH EVERY DAY Reglan 10 mg tablet RxNorm: 899225 1 Tablet(s) PO QID b efore meals and at bedtime 08/01/2012 11/23/2012 Inactive fluoxetine 40 mg capsule RxNorm: 891107 1 Capsule(s) PO QD 08/01/20 12 01/27/2013 Inactive TAKE ONE CAPSULE BY MOUTH EV JANKI MORNING Ventolin HFA 90 mcg/actuation Aerosol Inhaler RxNorm: 456166 2 Puff(s) INH Q4H 08/01/2012 No Stop Date Active prn Soma 350 mg tablet RxNorm: 927024 1 Tablet(s) PO TID 07/20/201208/18 Inactive TAKE ONE TABLET BY MOUTH THREE TIMES A D AY Spiriva with HandiHaler 18 mcg & inhalation capsules RxNorm: 657128 1 Capsule(s) INH 07/01/2012 12/25/2012 Inactive INHALE CONTENTS OF 1 CAPSULE(S) WITH HANDIHALER ONCE DAILY Zithromax 250 mg Tab RxNorm: 689411 2 Tablet(s) PO QD 06/28/201206/22 Inactive MS Contin 200 mg tablet,extended release RxNorm: 102337 1 Table t(s) PO BID 06/28/2012 07/27/2012 Inactive Endocet 10 mg-325 mg tablet RxNorm: 2057188 1-2 Tablet(s) PO Q4H 07/27/2012 Inactive PRN PAIN Topamax 100 mg tablet RxNorm: 297999 1 Tablet(s) PO QHS 06/28/2012 Inactive 16.2 mg-0.1037 mg-0.0194 mg tablet RxNorm: 4586517 Tablet(s) PO PRN for gas and cramping 06/08/2012 08/23/2013 Inactive TAKE TWO TABLET S BY MOUTH THREE TIMES A DAY NEEDED FOR GAS AND CRAMPING Ventolin HFA 90 mcg/actuation Aerosol Inhaler RxNorm: 158540 2 Puff(s) INH Q4H 05/23/2012 No Stop Date Active prn Ventolin HFA 90 mcg/actuation Aerosol Inhaler RxNorm: 319305 2 Puff(s) INH Q4H 05/11/2012 No Stop Date Active prn Synthroid 112 mcg tablet RxNorm: 248484 1 Tablet(s) PO QD 05/09/2012 07/31/2012 Inactive TAKE ONE TABLET BY MOUTH EVERY DAY gabapentin 800 mg tablet RxNorm: 874182 1 Tablet(s) PO QD 05/09/2012 10/26/2012 Inactive TAKE ONE TABLET BY MOUTH EVERY DAY fluoxetine 40 mg capsule RxNorm: 352758 1 Capsule(s) PO QD 05/09/2007/31/2012 Inactive TAKE ONE CAPSULE BY MOUTH EV JANKI MORNING metformin ER 500 mg tablet,extended release 24 hr RxNorm: 86 0977 1 Tablet(s) PO QD 05/09/2012 10/26/2012 Inactive TAKE ONE TABLET BY MOUTH EVERY DAY Premarin 0.9 mg tablet RxNorm: 332523 1 Tablet(s) PO QD 05/09/2012 Inactive TAKE ONE TABLET BY MOUTH EVERY DAY Symbicort 160 mcg-4.5 mcg/actuation HFA Aerosol Inhaler RxNo rm: 8316918 2 Puff(s) INH BID 05/09/2012 10/26/2012 Inactive INHALE 2 PUFFS O RALLY TWO TIMES A DAY Endocet 10 mg-325 mg Tab RxNorm: 6320601 1-2 Tablet(s) PO Q4H 04/2705/26/2012 Inactive PRN PAIN MS Contin 200 mg Tab RxNorm: 106368 1 Tablet(s) PO BID 04/26/201202/2012 Inactive Ventolin HFA 90 mcg/actuation Aerosol Inhaler RxNorm: 087694 2 Puff(s) INH Q4H 04/25/2012 05/10/2012 Inactive prn Soma 350 mg tablet RxNorm: 735403 2 Tablet(s) PO TID 04/19/201207/19 Inactive TAKE ONE TABLET BY MOUTH THREE TIMES A D AY Ventolin HFA 90 mcg/actuation Aerosol Inhaler RxNorm: 361006 2 Puff(s) INH Q4H 04/12/2012 04/24/2012 Inactive prn Reglan 10 mg tablet RxNorm: 679159 1 Tablet(s) PO QID b efore meals and at bedtime 04/11/2012 07/31/2012 Inactive MS Contin 200 mg Tab RxNorm: 464951 1 Tablet(s) PO BID 03/30/201202/2012 Inactive Endocet 10 mg-325 mg Tab RxNorm: 3209995 1-2 Tablet(s) PO Q4H 03/3004/26/2012 Inactive PRN PAIN MS Contin 200 mg Tab RxNorm: 062172 1 Tablet(s) PO BID 03/02/201206/2012 Inactive Endocet 10 mg-325 mg Tab RxNorm: 8379232 1-2 Tablet(s) PO Q4H 03/0203/29/2012 Inactive PRN PAIN Daliresp 500 mcg tablet RxNorm: 0646027 1 Tablet(s) PO QD 03/01/2012 09/28/2012 Inactive MS Contin 200 mg Tab RxNorm: 447331 1 Tablet(s) PO BID 02/02/201208/2012 Inactive Endocet 10 mg-325 mg Tab RxNorm: 9129243 1-2 Tablet(s) PO Q4H 02/0103/01/2012 Inactive PRN PAIN fluoxetine 40 mg capsule RxNorm: 438635 1 Capsule(s) PO QD 02/02/2008/01/2012 Inactive TAKE ONE CAPSULE BY MOUTH EV JANKI MORNING Synthroid 112 mcg Tab RxNorm: 065310 1 Tablet(s) PO QD 01/18/2012 Inactive TAKE ONE TABLET BY MOUTH EVERY DAY lactulose 10 gram/15 mL oral solution RxNorm: 899484 [address]s) PO QD 01/18/2012 No Stop Date Active TAKE 1 TABLESPOON BY MOUTH ONCE DAILY Ventolin HFA 90 mcg/actuation Aerosol Inhaler RxNorm: 902772 2 Puff(s) INH Q4H 01/18/2012 04/11/2012 Inactive prn MS Contin 200 mg Tab RxNorm: 662691 1 Tablet(s) PO BID 01/05/201210/2012 Inactive Endocet 10 mg-325 mg Tab RxNorm: 2866852 1-2 Tablet(s) PO Q4H 01/0502/01/2012 Inactive PRN PAIN ProAir HFA 90 mcg/Actuation Aerosol Inhaler RxNorm: 007473 2 Pu ff(s) INH Q4H 12/21/2011 No Stop Date Active prn for wheezing or shortness of breath Spiriva with HandiHaler 18 mcg & inhalation Caps RxNorm: 580 261 1 Capsule(s) INH 12/21/2011 06/30/2012 Inactive INHALE CONTENTS OF 1 CAPSULE(S) WITH HANDIHALER ONCE DAILY Reglan 10 mg Tab RxNorm: 266670 1 Tablet(s) PO QID before meals and at bedtime 12/21/2011 04/10/2012 Inactive Synthroid 112 mcg Tab RxNorm: 639968 1 Tablet(s) PO QD 12/21/2011 Inactive TAKE ONE TABLET BY MOUTH EVERY DAY Endocet 10 mg-325 mg Tab RxNorm: 2654661 1-2 Tablet(s) PO Q4H 11/2512/24/2011 Inactive PRN PAIN MS Contin 200 mg Tab RxNorm: 359835 1 Tablet(s) PO BID 11/25/201112/2011 Inactive lactulose 10 gram/15 mL Oral Soln RxNorm: 113974 Milliliter(s) PO 1 No Stop Date Active TAKE 1 TABLESPOON BY MOUTH O NCE DAILY lactulose 10 gram/15 mL Oral Soln RxNorm: 060298 Milliliter(s) PO 1 12/12/2010 11/20/2011 Inactive TAKE 1 TABLESPOON BY MOUTH O NCE DAILY Premarin 0.9 mg Tab RxNorm: 608426 1 Tablet(s) PO QD 10/12/201105/08 Inactive TAKE ONE TABLET BY MOUTH EVERY DAY fluoxetine 20 mg capsule RxNorm: 720946 1 Capsule(s) PO QD 10/12/2009/05/2012 Inactive TAKE ONE CAPSULE BY MOUTH EV JANKI DAY Synthroid 112 mcg Tab RxNorm: 158534 1 Tablet(s) PO QD 10/12/2011 Inactive TAKE ONE TABLET BY MOUTH EVERY DAY metformin ER 500 mg 24 hr Tab RxNorm: 297865 1 Tablet(s) PO QD 09/2311/10/2011 Inactive TAKE ONE TABLET BY MOUTH GLYNN RY DAY Synthroid 112 mcg Tab RxNorm: 143602 1 Tablet(s) PO QD 10/12/2011 Inactive TAKE ONE TABLET BY MOUTH EVERY DAY metformin ER 500 mg 24 hr Tab RxNorm: 104158 1 Tablet(s) PO QD 09/2310/11/2011 Inactive TAKE ONE TABLET BY MOUTH GLYNN Prevacid 30 mg Cap RxNorm: 818511 Capsule(s) PO 10/12/2011 01/25/2012 Inactive TAKE ONE CAPSULE BY MOUTH EVERY DAY Symbicort 160 mcg-4.5 mcg/actuation HFA Aerosol Inhaler RxNo rm: 6491658 2 Puff(s) INH BID 10/12/2011 05/08/2012 Inactive INHALE 2 PUFFS O RALLY TWO TIMES A DAY gabapentin 800 mg Tab RxNorm: 047694 1 Tablet(s) PO QD 10/12/2011 Inactive TAKE ONE TABLET BY MOUTH EVERY DAY MS Contin 200 mg Tab RxNorm: 840554 1 Tablet(s) PO BID 09/23/201111/2010 Inactive Endocet 10 mg-325 mg Tab RxNorm: 2076382 1-2 Tablet(s) PO Q4H 09/2310/22/2011 Inactive PRN PAIN Endocet 10 mg-325 mg Tab RxNorm: 0654285 1-2 Tablet(s) PO Q4H 08/2109/19/2011 Inactive PRN PAIN MS Contin 200 mg Tab RxNorm: 610599 1 Tablet(s) PO BID 08/21/2011 Inactive Diflucan 100 mg Tab RxNorm: 153522 1 Tablet(s) PO QD 08/10/201108/16 Inactive cefdinir 300 mg Cap RxNorm: 872824 2 Capsule(s) PO QD 08/10/201107/24 Inactive Reglan 10 mg Tab RxNorm: 752798 1 Tablet(s) PO AC & HS 07/15/2011 Inactive Endocet 10 mg-325 mg Tab RxNorm: 4823640 1-2 Tablet(s) PO Q4H 07/1508/13/2011 Inactive PRN PAIN One Touch Ultra Test strips RxNorm: Miscellaneous BID 06/11/2011 1 01/16/2014 Inactive TEST TWO TIMES A DAY lactulose 10 gram/15 mL Oral Soln RxNorm: 210848 Milliliter(s) PO 0 06/10/2011 10/11/2011 Inactive TAKE 1 TABLESPOON BY MOUTH O NCE DAILY Chantix Continuing Month Aníbal 1 mg Tab RxNorm: 215638 Tablet(s) PO 0 06/10/2011 11/02/2011 Inactive TAKE DIRECTED - PER [employer] GE INSTRUCTIONS fluoxetine 40 mg Cap RxNorm: 233286 Capsule(s) PO 06/10/2011 02/02/20 Inactive TAKE ONE CAPSULE BY MOUTH EVERY MORNING Chantix Continuing Month Aníbal 1 mg Tab RxNorm: 060390 Ta blet(s) PO TAKE DIRECTED - PER PACKAGE INSTRUCTIONS 05/13/2011 06/09/2011 Inactive Soma 350 mg Tab RxNorm: 756890 Tablet(s) PO TAKE ON E TABLET BY MOUTH THREE TIMES A DAY 05/13/2011 04/18/2012 Inactive Chantix Continuing Month Aníbal 1 mg Tab RxNorm: 748750 Ta blet(s) PO as directed per package instructions. 04/22/2011 05/12/2011 Inactive Symbicort 160 mcg-4.5 mcg/Actuation HFA Aerosol Inhaler RxNo rm: 7130728 HFA Aerosol Inhaler INH INHALE 2 PUFFS ORALLY TWO TIMES A DAY 04/13/2011 Inactive Synthroid 112 mcg Tab RxNorm: 234184 Tablet(s) PO TAKE ONE TABLET BY MOUTH EVERY DAY 04/13/2011 10/12/2011 Inactive Premarin 0.9 mg Tab RxNorm: 977987 Tablet(s) PO TAKE ON E TABLET BY MOUTH EVERY DAY 04/13/2011 10/12/2011 Inactive gabapentin 800 mg Tab RxNorm: 034909 Tablet(s) PO TAKE ONE TABLET BY MOUTH EVERY DAY 04/13/2011 10/12/2011 Inactive Prevacid 30 mg Cap RxNorm: 785603 1 Capsule(s) PO QD 04/13/201110/11 Inactive Spiriva with HandiHaler 18 mcg & inhalation Caps RxNorm: 580 261 Capsule(s) INH INHALE CONTENTS OF 1 CAPSULE(S) WITH HANDIHALER ONCE DAILY 04/13/2011 12/21/2011 Inactive metformin ER 500 mg 24 hr Tab RxNorm: 467476 Tablet(s) PO TAKE ONE TABLET BY MOUTH EVERY DAY 04/13/2011 10/12/2011 Inactive Soma 350 mg Tab RxNorm: 890786 1 Tablet(s) PO QID 03/30/2011 02/13/20 19 Inactive fluoxetine 20 mg Cap RxNorm: 874230 Capsule(s) PO TAKE ONE CAPSULE BY MOUTH EVERY DAY 03/25/2011 10/12/2011 Inactive cefdinir 300 mg Cap RxNorm: 229341 2 Capsule(s) PO QD 03/19/201105/2011 Inactive 16.2 mg-0.1037 mg-0.0194 mg Tab RxNorm: 5148540 2 Tablet(s) PO TID PRN for gas and cramping 03/16/2011 07/13/2011 Inactive Soma 350 mg Tab RxNorm: 401389 2 Tablet(s) PO TID 03/16/2011 03/29/20 11 Inactive Chantix Starting Month Aníbal 0.5 mg (11)-1 mg (3x14) Tab s in a Dose Pack RxNorm: 088968 Tablet(s) PO as directed 03/02/2011 No Stop Date Active diazepam 10 mg Tab RxNorm: 395837 1 Tablet(s) PO BID 02/10/201101/19 Inactive Zofran 4 mg tablet RxNorm: 651177 1 Tablet(s) PO Q4H prn nausea 02/16/2011 Inactive Diflucan 100 mg Tab RxNorm: 691004 1 Tablet(s) PO QD 01/18/201101/24 Inactive Premarin 0.625 mg/g Vaginal Cream RxNorm: 681643 VAG In sert 1gm vaginally at bedtime 3 times weekly 01/18/2011 02/12/2019 Inactive loratadine 10 mg Tab RxNorm: 9508207 1 Tablet(s) PO QD 12/17/201003/2012 Inactive Spiriva with HandiHaler 18 mcg & inhalation Caps RxNorm: 580 261 1 Capsule(s) INH QD 12/17/2010 04/12/2011 Inactive Diflucan 100 mg Tab RxNorm: 954000 1 Tablet(s) PO QD 12/17/201012/23 Inactive diazepam 10 mg Tab RxNorm: 697371 1 Tablet(s) PO BID and PRN 201002/12/2019 Inactive One Touch Ultra Test Strips RxNorm: InVt BID Zainab t blood sugar at least twice daily. 11/11/2010 06/11/2011 Inactive fluoxetine 40 mg Cap RxNorm: 116072 1 Capsule(s) PO QAM 11/11/2010 Inactive diazepam 10 mg Tab RxNorm: 516538 1 Tablet(s) PO BID and PRN 200911/12/2010 Inactive Bactrim DS 800 mg-160 mg Tab RxNorm: 322618 1 Tablet(s) PO BID 09/2210/15/2010 Inactive fluoxetine 20 mg Cap RxNorm: 750538 1 Capsule(s) PO QD 10/02/201008/2011 Inactive Bactrim DS 800 mg-160 mg Tab RxNorm: 568921 1 Tablet(s) PO BID 01/201010/03/2010 Inactive Zofran 4 mg Tab RxNorm: 904762 1 Tablet(s) PO Q4H prn nausea 200910/16/2010 Inactive 16.2 mg-0.1037 mg-0.0194 mg Tab RxNorm: 7139674 2 Tablet(s) PO TID PRN for gas and cramping 09/17/2010 10/21/2010 Inactive Gabapentin 800 mg Tab RxNorm: 999758 1 Tablet(s) PO QD 09/16/2010 Inactive ProAir HFA 90 mcg/Actuation Aerosol Inhaler RxNorm: 691538 2 Puff(s) INH Q4H prn shortness of breath 09/15/2010 12/13/2010 Inactive gabapentin 800 mg Tab RxNorm: 438446 1 Tablet(s) PO QD 09/15/2010 Inactive Prevacid 30 mg Cap RxNorm: 975203 1 Capsule(s) PO QD 09/15/201004/12 Inactive loratadine 10 mg Tab RxNorm: 6847757 1 Tablet(s) PO QD 09/15/2010 Inactive Premarin 0.9 mg Tab RxNorm: 707990 1 Tablet(s) PO QD 09/15/201004/12 Inactive Synthroid 112 mcg Tab RxNorm: 504930 1 Tablet(s) PO QD 09/15/2010 Inactive metformin ER 500 mg 24 hr Tab RxNorm: 737488 1 Tablet(s) PO QD 08/2304/12/2011 Inactive Symbicort 160 mcg-4.5 mcg/Actuation Inhalation HFA Aer osol Inhaler RxNorm: 0405390 2 Puff(s) INH BID 09/15/2010 04/12/2011 Inactive diazepam 10 mg Tab RxNorm: 458253 1 Tablet(s) PO BID and PRN 200910/13/2010 Inactive Phentermine 37.5 mg Cap RxNorm: 218264 1 Capsule(s) PO QD 09/02/2010 11/02/2011 Inactive ProAir HFA 90 mcg/Actuation Aerosol Inhaler RxNorm: 708517 2 Puff(s) INH Q4H prn shortness of breath 08/07/2010 No Stop Date Active Premarin 0.9 mg Tab RxNorm: 087653 1 Tablet(s) PO QD 08/07/201009/14 Inactive Loratadine 10 mg Tab RxNorm: 7333638 1 Tablet(s) PO QD 08/07/2010 Inactive Lactulose 10 gram/15 mL Oral Soln RxNorm: 279631 1 Unit Dose PO QD 08/07/2010 02/12/2019 Inactive Zofran 4 mg Tab RxNorm: 101802 1 Tablet(s) PO Q4H prn nausea 2009 No Stop Date Active Gabapentin 800 mg Tab RxNorm: 626127 1 Tablet(s) PO QD 08/07/2010 Inactive Synthroid 112 mcg Tab RxNorm: 554618 1 Tablet(s) PO QD 08/07/2010 Inactive Metformin ER 500 mg 24 hr Tab RxNorm: 954391 1 Tablet(s) PO QD 07/2309/14/2010 Inactive Vitamin D 1,000 unit Tab RxNorm: 856192 1 Tablet(s) PO TID 08/07/2002/12/2019 Inactive Symbicort 160 mcg-4.5 mcg/Actuation Inhalation HFA Aer osol Inhaler RxNorm: 7116873 2 Puff(s) INH BID 08/07/2010 09/14/2010 Inactive Prevacid 30 mg Cap RxNorm: 737603 1 Capsule(s) PO QD 08/07/201009/14 Inactive Metformin ER 500 mg 24 hr Tab RxNorm: 974556 1 Tablet(s) PO QD 06/2308/06/2010 Inactive Vitamin D 1,000 unit Tab RxNorm: 369104 1 Tablet(s) PO TID 07/14/2008/06/2010 Inactive Synthroid 112 mcg Tab RxNorm: 942562 1 Tablet(s) PO QD 07/14/2010 Inactive Lactulose 10 gram/15 mL Oral Soln RxNorm: 006069 1 Unit Dose PO QD 07/14/2010 08/06/2010 Inactive Levaquin 500 mg Tab RxNorm: 037845 1 Tablet(s) PO QD 07/14/201007/27 Inactive Premarin 0.9 mg Tab RxNorm: 634852 1 Tablet(s) PO QD 07/14/201008/06 Inactive ProAir HFA 90 mcg/Actuation Aerosol Inhaler RxNorm: 249352 2 Puff(s) INH Q4H prn shortness of breath 07/14/2010 No Stop Date Active Prevacid 30 mg Cap RxNorm: 341216 1 Capsule(s) PO QD 07/14/201008/06 Inactive Zofran 4 mg Tab RxNorm: 194442 1 Tablet(s) PO Q4H prn nausea 2009 No Stop Date Active Symbicort 160 mcg-4.5 mcg/Actuation Inhalation HFA Aer osol Inhaler RxNorm: 7800244 2 Puff(s) INH BID 07/14/2010 08/06/2010 Inactive Loratadine 10 mg Tab RxNorm: 1422154 1 Tablet(s) PO QD 07/14/2010 Inactive Gabapentin 800 mg Tab RxNorm: 320623 1 Tablet(s) PO QD 07/14/2010 Inactive Metformin ER 500 mg 24 hr Tab RxNorm: 410808 1 Tablet(s) PO 010 07/13/2010 Inactive Diazepam 10 mg Tab RxNorm: 083165 1 Tablet(s) PO BID and PRN 200909/06/2010 Inactive Premarin 0.9 mg Tab RxNorm: 139587 1 Tablet(s) PO QD 06/09/201007/13 Inactive Zofran 4 mg Tab RxNorm: 866781 1 Tablet(s) PO Q4H prn nausea 2009 No Stop Date Active ProAir HFA 90 mcg/Actuation Aerosol Inhaler RxNorm: 395065 2 Puff(s) INH Q4H prn shortness of breath 06/09/2010 No Stop Date Active Gabapentin 800 mg Tab RxNorm: 782588 1 Tablet(s) PO QD 06/09/2010 Inactive Loratadine 10 mg Tab RxNorm: 0912160 1 Tablet(s) PO QD 06/09/2010 Inactive Lactulose 10 gram/15 mL Oral Soln RxNorm: 455757 1 Unit Dose PO QD 06/09/2010 07/13/2010 Inactive Prevacid 30 mg Cap RxNorm: 993634 1 Capsule(s) PO QD 06/09/201007/13 Inactive Synthroid 112 mcg Tab RxNorm: 944187 1 Tablet(s) PO QD 06/09/2010 Inactive Symbicort 160 mcg-4.5 mcg/Actuation Inhalation HFA Aer osol Inhaler RxNorm: 1105422 2 Puff(s) INH BID 06/09/2010 07/13/2010 Inactive Omnicef 300 mg Cap RxNorm: 787834 2 Capsule(s) PO QD 05/07/201005/20 Inactive Metformin 500 mg Tab RxNorm: 736177 1 Tablet(s) PO QD 05/06/201005/22 Inactive ProAir HFA 90 mcg/Actuation Aerosol Inhaler RxNorm: 563892 2 Puff(s) INH Q4H prn shortness of breath 05/06/2010 No Stop Date Active lactulose 10 gram/15 mL Oral Soln RxNorm: 740298 1 Unit Dose PO QD 05/06/2010 06/10/2011 Inactive Loratadine 10 mg Tab RxNorm: 2574253 1 Tablet(s) PO QD 05/06/2010 Inactive Synthroid 112 mcg Tab RxNorm: 283493 1 Tablet(s) PO QD 05/06/2010 Inactive Symbicort 160 mcg-4.5 mcg/Actuation Inhalation HFA Aer osol Inhaler RxNorm: 3933899 2 Puff(s) INH BID 05/06/2010 06/08/2010 Inactive Gabapentin 800 mg Tab RxNorm: 582205 1 Tablet(s) PO QD 05/06/2010 Inactive 16.2 mg-0.1037 mg-0.0194 mg Tab RxNorm: 6408663 2 Tablet(s) PO TID PRN for gas and cramping 05/06/2010 05/12/2010 Inactive Zofran 4 mg Tab RxNorm: 177632 1 Tablet(s) PO Q4H prn nausea 200904/13/2010 Inactive MS Contin 60 mg Tab RxNorm: 475131 3 Tablet(s) PO BID 04/09/201004/22 Inactive Soma 350 mg Tab RxNorm: 352419 2 Tablet(s) PO TID 04/09/2010 05/08/20 10 Inactive Symbicort 160 mcg-4.5 mcg/Actuation Inhalation HFA Aer osol Inhaler RxNorm: 2958244 2 Puff(s) INH BID 04/08/2010 05/05/2010 Inactive Doxycycline 100 mg Cap RxNorm: 5995560 1 Capsule(s) PO BID 04/08/20 10 04/17/2010 Inactive Triamterene-Hydrochlorothiazide 37.5 mg-25 mg Cap RxNorm: 19 8316 1 Capsule(s) PO QAM 04/08/2010 09/04/2010 Inactive fluoxetine 40 mg Cap RxNorm: 282421 1 Capsule(s) PO QAM 04/08/2010 Inactive Morphine SR 120 mg multiphase 24 hr Cap RxNorm: 566261 1 Capsul e(s) PO 03/11/2010 04/07/2010 Inactive Endocet 10 mg-325 mg Tab RxNorm: 9865719 1-2 Tablet(s) PO Q4H TN N PAIN 03/11/2010 04/09/2010 Inactive Savella 100 mg Tab RxNorm: 607348 1 Tablet(s) PO BID 03/10/201004/09 Inactive Soma 350 mg Tab RxNorm: 291122 1 Tablet(s) PO TID prn spasm 010 04/09/2010 Inactive Savella 100 mg Tab RxNorm: 121150 1 Tablet(s) PO BID 02/03/201004/09 Inactive Aspirin 81 mg Tab RxNorm: 220592 1 Tablet(s) PO QD No Start Date Active Zyrtec 10 mg Tab RxNorm: 5739645 1 Tablet(s) PO QD No Start Date Active One Touch Ultra Test Strips RxNorm: Misc test at least t wice daily. No Start Date Active coenzyme Q10 200 mg capsule RxNorm: 964616 1 Capsule(s) PO QD No Star t Date Active One Touch Ultra Test Strips RxNorm: InVt BID Zainab t blood sugar at least twice daily. No Start Date 11/10/2010 Inactive Gabapentin 800 mg Tab RxNorm: 819820 1 Tablet(s) PO QD No Start Date 05/05/2010 Inactive Abilify 5 mg tablet RxNorm: 750945 1 Tablet(s) PO QD No Start Date Inactive Chantix 1 mg Tab RxNorm: 603031 1 Tablet(s) PO BID No Start Date 10/22 Inactive Ozempic 0.25 mg or 0.5 mg (2 mg/1.5 mL) subcutaneous p en injector RxNorm: 8443492 .25 Milligram(s) SQ QW No Start Date 07/04/2019 Inactive lancets 28 gauge RxNorm: Miscellaneous As needed for blo od glucose sticks No Start Date 08/23/2013 Inactive potassium chloride ER 20 mEq tablet,extended release RxNorm: 875129 2 Tablet(s) PO QD No Start Date 09/26/2018 Inactive Ventolin HFA 90 mcg/actuation Aerosol Inhaler RxNorm: 303658 2 Puff(s) INH Q4H prn No Start Date 01/17/2012 Inactive potassium chloride ER 20 mEq tablet,extended release RxNorm: 372391 2 Tablet(s) PO QD No Start Date 10/19/2018 Inactive Januvia 100 mg tablet RxNorm: 969293 1 Tablet(s) PO QD No Start Date 09/10/2015 Inactive Medrol (Aníbal) 4 mg Tabs in a Dose Pack RxNorm: 430087 Tablet(s) PO N o Start Date 08/09/2011 Inactive as directed Zithromax Z-Aníbal 250 mg Tab RxNorm: 809533 Tablet(s) PO No Start Date 01/25/2012 Inactive as directed vitamin B6-vitamin E-magnesium tablet RxNorm: 1 Tablet(s ) PO QHS with INH No Start Date 03/30/2018 Inactive prednisone 20 mg Tab RxNorm: 665697 1 Tablet(s) PO TID for 1wk then 1 po BID for 1wk No Start Date 01/25/2012 Inactive furosemide 40 mg tablet RxNorm: 773044 1 Tablet(s) PO QAM No Start Date 10/09/2018 Inactive Vitamin D3 1000 units Capsule RxNorm: 1 Capsule(s) PO TID No S tart Date 03/19/2015 Inactive Zofran 4 mg Tab RxNorm: 248828 1 Tablet(s) PO Q4H prn nausea No Sta rt Date 04/13/2010 Inactive Premarin 0.625 mg/g Vaginal Cream RxNorm: 233160 1 Gram (s) VAG QHS 3 times a week No Start Date 09/22/2017 Inactive oxycodone 10 mg tablet RxNorm: 9373179 1-2 Tablet(s) PO QID as n eeded for pain No Start Date 11/04/2015 Inactive Nicoderm CQ 21 mg/24 hr daily Patch RxNorm: 379589 1 Applicatio n TD QD No Start Date 08/05/2015 Inactive Topamax 50 mg tablet RxNorm: 661594 1/2 Tablet(s) PO QH S for 1wk then 1 po q HS for 1wk then 2 po q HS No Start Date 06/27/2012 Inactive Chantix Starting Month Aníbal 0.5 mg (11)-1 mg (3x14) Tab s in a Dose Pack RxNorm: 513547 Tablet(s) PO as directed No Start Date 03/01/2011 Inactive Trulicity 0.75 mg/0.5 mL subcutaneous pen injector RxNorm: 1 060198 Milliliter(s) SQ No Start Date 07/04/2019 Inactive Medrol (Aníbal) 4 mg Tabs in a Dose Pack RxNorm: 003999 Tablet(s) PO N o Start Date 01/25/2012 Inactive as directed Duragesic 100 mcg/hr Transderm Patch RxNorm: 382195 2 A pplication TD Q48H for pain No Start Date 09/05/2013 Inactive Premarin 0.9 mg Tab RxNorm: 619096 1 Tablet(s) PO QD No Start Date Inactive Zithromax Z-Aníbal 250 mg Tab RxNorm: 551114 Tablet(s) PO as direc chinmay No Start Date 01/25/2012 Inactive ondansetron 8 mg disintegrating tablet RxNorm: 489778 1 Tablet(s) PO Q6H as needed No Start Date 10/10/2018 Inactive oxycodone 15 mg tablet RxNorm: 8694362 1 Tablet(s) PO QID as nee ded for pain No Start Date 03/05/2019 Inactive ProAir HFA 90 mcg/Actuation Aerosol Inhaler RxNorm: 696279 2 Puff(s) INH Q4H prn for wheezing or shortness of breath No Start Date 12/21/2011 Inactive pravastatin 40 mg tablet RxNorm: 855350 1/2 Tablet(s) PO QOD No Sta rt Date 04/09/2015 Inactive ipratropium-albuterol 0.5 mg-3 mg(2.5 mg base)/3 mL ne bulization soln RxNorm: 0106552 1 Unit Dose INH Q4H as needed No Start Date 09/09/2016 Inactive furosemide 40 mg tablet RxNorm: 182908 1 Tablet(s) PO QAM as ne eded No Start Date 09/24/2019 Inactive Vitamin D2 oral RxNorm: 4018 oral No Start Date 03/18/2015 Inacti ve pravastatin 40 mg tablet RxNorm: 981247 1/2 Tablet(s) PO QD No Star t Date 04/09/2015 Inactive ondansetron HCl 4 mg tablet RxNorm: 794795 1 Tablet(s) PO Q4H as needed for nausea and vomiting No Start Date 04/07/2016 Inactive furosemide 40 mg tablet RxNorm: 237766 2 Tablet(s) PO QAM No Start Date 09/26/2018 Inactive gabapentin 800 mg tablet RxNorm: 835106 1/2 Tablet(s) PO BID No Sta rt Date 06/21/2017 Inactive gabapentin 800 mg tablet RxNorm: 199775 1/2 Tablet(s) PO BID No Sta rt Date 07/05/2017 Inactive ProAir HFA 90 mcg/Actuation Aerosol Inhaler RxNorm: 165563 2 Puff(s) INH Q4H prn shortness of breath No Start Date 05/05/2010 Inactive scopolamine 1 mg over 3 days transdermal patch RxNorm: 12302 2 1 Application TD behind ear. Take off after three days No Start Date 10/10/2018 Inactive Metformin 500 mg Tab RxNorm: 055897 1 Tablet(s) PO QD No Start Date 0 05/05/2010 Inactive MS Contin 200 mg Tab RxNorm: 102562 1 Tablet(s) PO BID No Start Date 08/20/2011 Inactive Belladonna-Phenobarbital 48 mg tablet,extended release RxNor m: 2 Tablet(s) PO TID No Start Date 06/04/2016 Inactive Synthroid 112 mcg Tab RxNorm: 617940 1 Tablet(s) PO QD No Start Date 05/05/2010 Inactive Zegerid 40 mg-1.1 gram Cap RxNorm: 322520 1 Capsule(s) PO QD No Sta rt Date 01/25/2012 Inactive Premarin 0.625 mg/g Vaginal Cream RxNorm: 912368 VAG In sert 1gm vaginally at bedtime 3 times weekly No Start Date 01/17/2011 Inactive potassium chloride ER 20 mEq tablet,extended release RxNorm: 268451 1 Tablet(s) PO QD No Start Date 04/24/2019 Inactive methocarbamol 750 mg tablet RxNorm: 451295 2 Tablet(s) PO TID as needed for muscle spasm No Start Date 07/08/2014 Inactive Biaxin XL Aníbal 500 mg 24 hr Tab RxNorm: 931754 Tablet(s) PO as d irected No Start Date 04/24/2013 Inactive Vitamin D3 1,000 unit tablet RxNorm: 073241 3 Tablet(s) PO QD No St art Date 06/01/2017 Inactive Morphine SR 120 mg multiphase 24 hr Cap RxNorm: 385863 1 Capsul e(s) PO BID No Start Date 04/09/2010 Inactive Silvadene 1 % topical cream RxNorm: 674242 1 Application TOP BI D to burn area No Start Date 01/31/2017 Inactive Prednisone 20 mg Tab RxNorm: 492663 1 Tablet(s) PO TID for 3days then BID for 4days No Start Date 01/25/2012 Inactive gabapentin 600 mg tablet RxNorm: 032177 1 Tablet(s) PO BID No Start Date 01/21/2015 Inactive topiramate 50 mg tablet RxNorm: 500719 1 Tablet(s) PO QHS No Start Date 03/30/2018 Inactive Januvia 100 mg tablet RxNorm: 694757 1/2 Tablet(s) PO QD No Start D ate 12/25/2015 Inactive Diazepam 10 mg Tab RxNorm: 973331 1 Tablet(s) PO BID and PRN No Sta rt Date 06/08/2010 Inactive Medication Administered No Medication Administered data Immunizations Vaccine Codes Date Status Influenza CVX: 141 09/28/2012 Pneumovax Unknown 09/28/2012 Influenza (Adult) CVX: 141 09/02/2010 Results No Results data Procedures Procedure Codes Date THER/PROPH/DIAG INJ SC/IM CPT-4: 18682 07/10/2019 METHYLPREDNISOLONE INJECTION CPT-4: J2930 07/10/2019 URINALYSIS NONAUTO W/O SCOPE CPT-4: 23408 09/06/2018 URINE CULTURE/ COLONY COUNT CPT-4: 24377 09/06/2018 DRAIN/INJECT JOINT/BURSA CPT-4: 69661 04/29/2017 TRIAMCINOLONE ACET INJ NOS CPT-4: J3301 04/29/2017 DEXAMETHASONE SODIUM PHOS CPT-4: J1100 04/29/2017 INFLUENZA ASSAY W/OPTIC CPT-4: 50726 12/01/2016 RESPIRATORY CULTURE & STAIN CPT-4: 87652 07/09/2016 TB INTRADERMAL TEST CPT-4: 13941 04/21/2016 DRAIN/INJECT JOINT/BURSA CPT-4: 98900 11/07/2013 METHYLPREDNISOLONE 40 MG INJ CPT-4: J1030 11/07/2013 TRIAMCINOLONE ACET INJ NOS CPT-4: J3301 11/07/2013 DRAIN/INJECT JOINT/BURSA CPT-4: 45666 08/08/2013 METHYLPREDNISOLONE 40 MG INJ CPT-4: J1030 08/08/2013 TRIAMCINOLONE ACET INJ NOS CPT-4: J3301 08/08/2013 FLU VACCINE 3 YRS & > IM UP 64 CPT-4: 82348 2 PNEUMOCOCCAL VACC 23 ADITYA IM CPT-4: 79365 09/28/2012 IMMUNIZATION ADMIN CPT-4: 95143 09/28/2012 IMMUNIZATION ADMIN EACH ADD CPT-4: 84561 09/28/2012 FLU VACCINE 3 YRS & > IM UP 64 CPT-4: 53529 0 IMMUNIZATION ADMIN CPT-4: 75669 09/02/2010 METHYLPREDNISOLONE INJECTION CPT-4: J2930 05/07/2010 THER/PROPH/DIAG INJ SC/IM CPT-4: 77589 05/07/2010 Vital Signs Date Vital 11/29/2019 Blood [...] 1: 122/78 Code: 8480-6 BMI: 29.5 Code: 20739-8 Heart Rate 1: 76 bpm Height: 5'4" Respiratory Rate: 20 bpm SpO2: 96% Tempera ture: 37.0 (C) / 98.6 (F) Weight: 172 lbs 01/25/2019 Blood Pressure 1: 132/80 Code: 8480-6 BMI: 29.7 Code: 87623-5 Heart Rate 1: 84 bpm Height: 5'4" Respiratory Rate: 22 bpm SpO2: 98% Tempera ture: 36.9 (C) / 98.4 (F) Weight: 173 lbs 01/03/2019 Blood Pressure 1: 116/70 Code: 8480-6 BMI: 29.5 Code: 98115-3 Heart Rate 1: 92 bpm Height: 5'4" Respiratory Rate: 24 bpm SpO2: 98% Tempera ture: 37.2 (C) / 98.9 (F) Weight: 172 lbs 11/21/2018 Blood Pressure 1: 146/82 Code: 8480-6 BMI: 28.2 Code: 11050-7 Heart Rate 1: 88 bpm Height: 5'4" Respiratory Rate: 22 bpm SpO2: 97% Tempera ture: 36.9 (C) / 98.4 (F) Weight: 164 lbs 10/27/2018 Blood Pressure 1: 122/70 Code: 8480-6 BMI: 27.6 Code: 95664-4 Heart Rate 1: 88 bpm Height: 5'4" Respiratory Rate: 20 bpm SpO2: 96% Tempera ture: 36.8 (C) / 98.3 (F) Weight: 161 lbs 10/18/2018 Blood Pressure 1: 126/70 Code: 8480-6 BMI: 28.3 Code: 64944-1 Heart Rate 1: 76 bpm Height: 5'4" Respiratory Rate: 20 bpm SpO2: 95% Tempera ture: 37.0 (C) / 98.6 (F) Weight: 165 lbs 09/27/2018 Blood Pressure 1: 124/78 Code: 8480-6 BMI: 27.1 Code: 23411-7 Heart Rate 1: 88 bpm Height: 5'4" Respiratory Rate: 20 bpm SpO2: 98% Tempera ture: 36.4 (C) / 97.6 (F) Weight: 158 lbs 09/14/2018 Blood Pressure 1: 140/72 Code: 8480-6 BMI: 26.1 Code: 58378-4 Heart Rate 1: 100 bpm Height: 5'4" Respiratory Rate: 20 bpm SpO2: 97% Tempera ture: 36.9 (C) / 98.4 (F) Weight: 152 lbs 09/06/2018 Blood Pressure 1: 156/82 Code: 8480-6 BMI: 26.3 Code: 47930-0 Heart Rate 1: 100 bpm Height: 5'4" Respiratory Rate: 28 bpm SpO2: 95% Tempera ture: 37.2 (C) / 98.9 (F) Weight: 153 lbs 08/16/2018 Blood Pressure 1: 130/78 Code: 8480-6 Heart Rate 1: 87 bpm Respiratory Rate: 24 bpm SpO2: 94% Temperature: 36.9 (C) / 98.4 (F) We ight: 147 lbs 8 oz 07/07/2018 Blood Pressure 1: 116/78 Code: 8480-6 BMI: 22.7 Code: 51664-7 Heart Rate 1: 88 bpm Height: 5'4" Respiratory Rate: 22 bpm SpO2: 98% Tempera ture: 36.5 (C) / 97.7 (F) Weight: 132 lbs 05/31/2018 Blood Pressure 1: 128/78 Code: 8480-6 BMI: 22.3 Code: 99741-3 Heart Rate 1: 92 bpm Height: 5'4" Respiratory Rate: 26 bpm SpO2: 94% Tempera ture: 36.7 (C) / 98.1 (F) Weight: 130 lbs 03/31/2018 Blood Pressure 1: 136/78 Code: 8480-6 BMI: 21.5 Code: 02307-6 Heart Rate 1: 76 bpm Height: 5'4" Respiratory Rate: 24 bpm SpO2: 95% Tempera ture: 36.8 (C) / 98.3 (F) Weight: 125 lbs 01/26/2018 Blood Pressure 1: 142/64 Code: 8480-6 BMI: 20.6 Code: 54739-8 Heart Rate 1: 90 bpm Height: 5'4" Respiratory Rate: 24 bpm SpO2: 92% Tempera ture: 36.3 (C) / 97.3 (F) Weight: 120 lbs 10/26/2017 Blood Pressure 1: 124/70 Code: 8480-6 BMI: 20.3 Code: 87510-4 Heart Rate 1: 76 bpm Height: 5'4" Respiratory Rate: 22 bpm SpO2: 94% Tempera ture: 36.7 (C) / 98.1 (F) Weight: 118 lbs 09/23/2017 Blood Pressure 1: 106/70 Code: 8480-6 BMI: 19.2 Code: 99200-7 Heart Rate 1: 76 bpm Height: 5'4" Respiratory Rate: 20 bpm SpO2: 94% Tempera ture: 36.8 (C) / 98.3 (F) Weight: 112 lbs 08/12/2017 Blood Pressure 1: 116/68 Code: 8480-6 BMI: 20.1 Code: 21276-2 Heart Rate 1: 80 bpm Height: 5'4" Respiratory Rate: 22 bpm SpO2: 95% Tempera ture: 36.8 (C) / 98.2 (F) Weight: 117 lbs 07/06/2017 Blood Pressure 1: 136/78 Code: 8480-6 BMI: 20.6 Code: 68124-2 Heart Rate 1: 76 bpm Height: 5'4" Respiratory Rate: 24 bpm SpO2: 96% Tempera ture: 36.8 (C) / 98.2 (F) Weight: 120 lbs 06/02/2017 Blood Pressure 1: 112/70 Code: 8480-6 Heart Rate 1: 92 bpm Height: 5'4" Respiratory Rate: 24 bpm SpO2: 95% Temperature: 37.0 (C) / 98.6 (F) Weight: 04/29/2017 Blood Pressure 1: 94/52 Code: 8480-6 BMI: 19.6 C ode: 74359-8 Heart Rate 1: 84 bpm Height: 5'4" [...] 92/58 Code: 8480-6 BMI: 19.2 C ode: 62862-2 Heart Rate 1: 84 bpm Height: 5'4" Respiratory Rate: 26 bpm SpO2: 95% Tempera ture: 36.7 (C) / 98.0 (F) Weight: 112 lbs 12/01/2016 Blood Pressure 1: 114/70 Code: 8480-6 BMI: 19.2 Code: 10039-2 Heart Rate 1: 96 bpm Height: 5'4" Respiratory Rate: 28 bpm SpO2: 93% Tempera ture: 38.3 (C) / 101.0 (F) Weight: 112 lbs 10/27/2016 Blood Pressure 1: 126/66 Code: 8480-6 BMI: 19.6 Code: 27176-9 Heart Rate 1: 92 bpm Height: 5'4" Respiratory Rate: 28 bpm SpO2: 90% Tempera ture: 36.8 (C) / 98.3 (F) Weight: 114 lbs 09/09/2016 Blood Pressure 1: 126/74 Code: 8480-6 Heart Rate 1: 104 bpm Height: 5'4" Respiratory Rate: 32 bpm SpO2: 88% Temperature: 37 .2 (C) / 99.0 (F) 08/26/2016 Blood Pressure 1: 134/82 Code: 8480-6 BMI: 22.0 Code: 14498-6 Heart Rate 1: 84 bpm Height: 5'4" Respiratory Rate: 24 bpm SpO2: 94% Tempera ture: 36.8 (C) / 98.3 (F) Weight: 128 lbs 05/21/2016 Blood Pressure 1: 142/80 Code: 8480-6 BMI: 21.6 Code: 58693-2 Heart Rate 1: 104 bpm Height: 5'4" Respiratory Rate: 22 bpm SpO2: 93% Tempera ture: 36.0 (C) / 96.8 (F) Weight: 126 lbs 03/25/2016 Blood Pressure 1: 126/62 Code: 8480-6 Heart Rate 1: 88 bpm Respiratory Rate: 20 bpm SpO2: 92% Temperature: 36.8 (C) / 98.3 (F) We ight: 130 lbs 01/23/2016 Blood Pressure 1: 146/82 Code: 8480-6 BMI: 24.1 Code: 78821-2 Heart Rate 1: 92 bpm Height: 5'3" Respiratory Rate: 22 bpm Temperature: 37 .1 (C) / 98.8 (F) Weight: 136 lbs 12/26/2015 Blood Pressure 1: 142/78 Code: 8480-6 BMI: 24.6 Code: 23842-2 Heart Rate 1: 78 bpm Height: 5'3" Respiratory Rate: 20 bpm Temperature: 36 .7 (C) / 98.1 (F) Weight: 139 lbs 12/03/2015 Blood Pressure 1: 126/60 Code: 8480-6 BMI: 24.6 Code: 35755-0 Heart Rate 1: 100 bpm Height: 5'3" Respiratory Rate: 28 bpm Temperature: 37 .6 (C) / 99.6 (F) Weight: 139 lbs 09/10/2015 Blood Pressure 1: 124/64 Code: 8480-6 BMI: 23.7 Code: 57233-3 Heart Rate 1: 88 bpm Height: 5'3" Respiratory Rate: 24 bpm SpO2: 95% Tempera ture: 36.4 (C) / 97.6 (F) Weight: 134 lbs 08/06/2015 Blood Pressure 1: 114/76 Code: 8480-6 BMI: 23.2 Code: 11361-6 Heart Rate 1: 88 bpm Height: 5'3" Respiratory Rate: 22 bpm Temperature: 36 .6 (C) / 97.9 (F) Weight: 131 lbs 07/18/2015 Blood Pressure 1: 144/78 Code: 8480-6 BMI: 23.7 Code: 31261-7 Heart Rate 1: 84 bpm Height: 5'3" Respiratory Rate: 20 bpm Temperature: 37 .2 (C) / 99.0 (F) Weight: 134 lbs 04/10/2015 Blood Pressure 1: 110/64 Code: 8480-6 Heart Rate 1: 80 bpm Height: Respiratory Rate: 20 bpm Temperature: 37.1 (C) / 98.8 (F) Weight: 03/05/2015 Blood Pressure 1: 136/80 Code: 8480-6 BMI: 23.9 Code: 60333-9 Heart Rate 1: 76 bpm Height: 5'3" Respiratory Rate: 24 bpm Temperature: 37 .0 (C) / 98.6 (F) Weight: 135 lbs 01/30/2015 Blood Pressure 1: 142/80 Code: 8480-6 BMI: 23.0 Code: 12660-2 Heart Rate 1: 96 bpm Height: 5'3" Respiratory Rate: 22 bpm Temperature: 36 .2 (C) / 97.2 (F) Weight: 130 lbs 01/02/2015 Blood Pressure 1: 124/70 Code: 8480-6 BMI: 23.4 Code: 92861-3 Heart Rate 1: 84 bpm Height: 5'3" Respiratory Rate: 24 bpm SpO2: 95% Tempera ture: 36.9 (C) / 98.5 (F) Weight: 132 lbs 10/03/2014 Blood Pressure 1: 106/68 Code: 8480-6 BMI: 22.5 Code: 00878-9 Heart Rate 1: 88 bpm Height: 5'3" Respiratory Rate: 24 bpm Temperature: 37 .0 (C) / 98.6 (F) Weight: 127 lbs 08/27/2014 Blood Pressure 1: 124/68 Code: 8480-6 BMI: 21.1 Code: 25799-5 Heart Rate 1: 88 bpm Height: 5'3" [...] 1: 120/70 Code: 8480-6 BMI: 19.2 Code: 40582-8 Heart Rate 1: 70 bpm Height: 5'4" Respiratory Rate: 20 bpm Temperature: 36 .9 (C) / 98.4 (F) Weight: 112 lbs 06/28/2013 Blood Pressure 1: 102/68 Code: 8480-6 BMI: 19.6 Code: 85324-3 Heart Rate 1: 76 bpm Height: 5'4" Respiratory Rate: 20 bpm Temperature: 36 .8 (C) / 98.2 (F) Weight: 114 lbs 05/31/2013 Blood Pressure 1: 106/70 Code: 8480-6 BMI: 18.9 Code: 88988-2 Heart Rate 1: 100 bpm Height: 5'4" Respiratory Rate: 20 bpm Temperature: 36 .4 (C) / 97.6 (F) Weight: 110 lbs 05/03/2013 Blood Pressure 1: 126/70 Code: 8480-6 BMI: 19.1 Code: 10349-4 Heart Rate 1: 88 bpm Height: 5'4" Respiratory Rate: 20 bpm Temperature: 37 .1 (C) / 98.8 (F) Weight: 111 lbs 04/25/2013 Blood Pressure 1: 114/68 Code: 8480-6 BMI: 19.4 Code: 34885-9 Heart Rate 1: 92 bpm Height: 5'4" Respiratory Rate: 24 bpm SpO2: 96% Tempera ture: 37.7 (C) / 99.8 (F) Weight: 113 lbs 03/08/2013 Blood Pressure 1: 94/68 Code: 8480-6 BMI: 21.3 C ode: 18628-2 Heart Rate 1: 88 bpm Height: 5'4" Respiratory Rate: 24 bpm Temperature: 37 .0 (C) / 98.6 (F) Weight: 124 lbs 02/07/2013 Blood Pressure 1: 106/64 Code: 8480-6 BMI: 21.8 Code: 81450-8 Heart Rate 1: 84 bpm Height: 5'4" Respiratory Rate: 22 bpm Temperature: 36 .8 (C) / 98.2 (F) Weight: 127 lbs 01/10/2013 Blood Pressure 1: 122/68 Code: 8480-6 BMI: 21.6 Code: 17057-6 Heart Rate 1: 94 bpm Height: 5'4" SpO2: 94% Temperature: 36.7 (C) / 98.1 (F) Weight: 126 lbs 09/28/2012 Blood Pressure 1: 124/78 Code: 8480-6 BMI: 24.9 Code: 12899-6 Heart Rate 1: 92 bpm Height: 5'4" Respiratory Rate: 20 bpm Temperature: 36 .7 (C) / 98.1 (F) Weight: 145 lbs 06/28/2012 Blood Pressure 1: 134/80 Code: 8480-6 BMI: 24.9 Code: 01708-6 Heart Rate 1: 76 bpm Height: 5'4" Respiratory Rate: 20 bpm Temperature: 36 .8 (C) / 98.2 (F) Weight: 145 lbs 05/03/2012 Blood Pressure 1: 108/62 Code: 8480-6 BMI: 25.6 Code: 80382-3 Heart Rate 1: 88 bpm Height: 5'4" Temperature: 36.2 (C) / 97.2 (F) Weight: 149 lbs 03/01/2012 Blood Pressure 1: 124/66 Code: 8480-6 BMI: 25.1 Code: 65175-1 Heart Rate 1: 76 bpm Height: 5'4" Respiratory Rate: 20 bpm Temperature: 36 .6 (C) / 97.9 (F) Weight: 146 lbs 01/26/2012 Blood Pressure 1: 118/82 Code: 8480-6 BMI: 25.1 Code: 95768-2 Heart Rate 1: 74 bpm Height: 5'4" Temperature: 36.8 (C) / 98.2 (F) Weight: 146 lbs 11/03/2011 Blood Pressure 1: 126/80 Code: 8480-6 BMI: 27.3 Code: 60639-6 Heart Rate 1: 72 bpm Height: 5'4" [...] prozac Encounters Encounter Performer Location Codes Date ([id number]) OFFICE/OUTPATIENT VISIT EST Diagnosis: Spinal stenosis, lumbar region with neurogenic claudication[ICD10: M48.062] Diagnosis: Spondylosis without myelopathy or radiculopathy, 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] Vika RENTERIA DO [facility] CPT-4: 97784 02/21/2020 ([id number]) OFFICE/OUTPATIENT VISIT EST Diagnosis: Urticaria[ICD10: L50.9] Diagnosis: Allergy to morphine[ICD10: Z88.5] Diagnosis: Chronic pain syndrome[ICD10: G89.4] Vika RENTERIA Angiodroid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 Lumbar Spine Cont current meds Bactrim for left toe 09/24/2010 Appointment: Vika Renteria WPtel: [address] [place], [place] [phone] CHECK UP 09/24/2010 Patient Education: Patient Medication Summary Completed 09/24/2010 Appointment: Vika Renteria WPtel: [address] [place], [place] [phone] FOLLOW UP 09/02/2010 Patient Education: Patient Medication Summary Completed 09/02/2010 Visit Plan: Return for 2nd epidural Obse rve right leg lesion Cont Symbicort and Spiriva 07/14/2010 Appointment: Vika Renteria WPtel: [address] [place], [place] [phone] [place] FOLLOW UP 07/14/2010 Patient Education: Patient Medication Summary Completed 07/14/2010 Appointment: Vika Renteria WPtel: [address] [place] [phone] [place] FOLLOW UP 05/27/2010 Appointment: Vika Renteria WPtel: [address] [place], [place] [phone] [place] FOLLOW UP 05/14/2010 Visit Plan: SVN with Albuterol 0.083% Q4 hrs and Q2hrs prn. Restart Spiriva Smoking Cessation 05/07/2010 Appointment: Vika Renteria WPtel: [phone] [id number] FOLLOW UP 05/07/2010 Patient Education: Patient Medication Summary Completed 05/07/2010 Appointment: Vika Renteria WPtel: [phone] [facility] ACUTE ILLNESS 04/08/2010 Patient Education: Patient Medication Summary Completed 04/08/2010 Referral: Kyle Billings WPtel: [phone] [facility] [place] Referral Completed Referral: Jaylan Matute WPtel: [address] [facility] [address] [id number] [place] Referral Initiated Referral: Kyle Billings WPtel: [phone] [facility] [place] Referral Appointment Requested Instructions Comment . [...] prn breakthrough pain . Discussed that some [employer] produc ts are petroleum free If [...]
--- OUTSIDE RECORDS SUMMARY | 2020-04-24 22:36 | XMS REPORT | CCD ---
Author Author Yana Renteria D.O. Organization [facility] Address [address] [place] [address] Phone Care Team Providers Care Airways Control Specialist Name Role Phone Vika Renteria D.O., PP Unavailable CCM Unavailable Summary Purpose Interface Exchange Insurance Providers Payer name Policy type / Coverage type Covered alliance party ID Effective Begin Date Effective End Date [employer] [facility] Medicaid [id number] U nknown Family History Family History data not found Social History Social History Element Codes Description Effective Dates Marital status Unknown 06/28/[address]: [id number] Currently smokes tobacco 05/2013 Allergies, Adverse Reactions, [...] mcg-4.5 mcg/actuation HFA aerosol inhaler RxNo rm: 1144090 INHALE TWO PUFFS BY MOUTH TWICE A DAY 02/19/2020 No Stop Date Active Daliresp 500 mcg tablet RxNorm: 2109299 TAKE ONE TABLET BY MOUTH DAILY 02/19/2020 No Stop Date Active oxycodone 30 mg tablet RxNorm: 6146962 1 Tablet(s) Oral four times a day replaces MS Contin 02/13/2020 03/14/2020 Active prednisone 20 mg tablet RxNorm: 399777 1 Tablet(s) Oral two yumi es a day 02/13/2020 02/20/2020 Inactive levothyroxine 25 mcg tablet RxNorm: 887717 TAKE ONE TAB LET BY MOUTH EVERY MORNING 02/09/2020 No Stop Date Active MS Contin 200 mg tablet,extended release RxNorm: 143555 1 Tablet(s) Oral two times a day 02/01/2020 03/01/2020 Active cyclobenzaprine 10 mg tablet RxNorm: 232721 TAKE ONE TA BLET BY MOUTH THREE TIMES A DAY NEEDED 01/31/2020 No Stop Date Active Premarin 0.45 mg tablet RxNorm: 633552 TAKE ONE TABLET BY MOUTH DAILY 01/31/2020 No Stop Date Active metformin 500 mg tablet RxNorm: 572257 1 Tablet(s) Oral QD 01/31/20 20 04/29/2020 Active gabapentin 300 mg capsule RxNorm: 531325 TAKE ONE CAPSULE BY [facility] TWICE A DAY 01/16/2020 No Stop Date Active potassium chloride ER 20 mEq tablet,extended release RxNorm: 706371 TAKE ONE TABLET BY MOUTH DAILY 01/08/2020 07/05/2020 Active ProAir HFA 90 mcg/actuation aerosol inhaler RxNorm: 733833 INHALE ONE PUFF BY MOUTH EVERY 4 HOURS FOR WHEEZING OR FOR SHORTNESS OF BREATH 01/04/2020 No Stop Date Active metformin 500 mg tablet RxNorm: 837188 1 Tablet(s) Oral QD 01/04/20 20 01/30/2020 Inactive MS Contin 200 mg tablet,extended release RxNorm: 343603 1 Tablet(s) Oral two times a day 01/02/2020 01/31/2020 Inactive Pulmicort 1 mg/2 mL suspension for nebulization RxNorm: 6168 19 USE ONE VIAL VIA NEBULIZER BY MOUTH TWICE A DAY 12/21/2019 No Stop Date Active furosemide 40 mg tablet RxNorm: 060598 TAKE ONE TABLET BY MOUTH EVERY MORNING NEEDED 12/20/2019 No Stop Date Active levothyroxine 25 mcg tablet RxNorm: 538982 TAKE ONE TAB LET BY MOUTH EVERY MORNING 12/20/2019 02/08/2020 Inactive MS Contin 200 mg tablet,extended release RxNorm: 197708 1 Tablet(s) Oral two times a day 12/05/2019 01/01/2020 Inactive Medrol (Aníbal) 4 mg tablets in a dose pack RxNorm: 964296 6 Tablet(s) Oral QD --then as directed 11/30/2019 12/05/2019 Inactive MS Contin 200 mg tablet,extended release RxNorm: 848519 1 Tablet(s) Oral two times a day 11/29/2019 12/04/2019 Inactive cyclobenzaprine 10 mg tablet RxNorm: 473784 TAKE ONE TA BLET BY MOUTH THREE TIMES A DAY NEEDED 11/21/2019 01/30/2020 Inactive MS Contin 200 mg tablet,extended release RxNorm: 462387 1 Tablet(s) Oral two times a day replaces 100mg dose 11/03/2019 11/02/2019 Inactive MS Contin 200 mg tablet,extended release RxNorm: 400405 1 Tablet(s) Oral two times a day replaces 100mg dose 11/03/2019 11/29/2019 Inactive ferrous sulfate 325 mg (65 mg iron) tablet RxNorm: 544996 1 Tab let(s) Oral QD 10/30/2019 No Stop Date Active MS Contin 100 mg tablet,extended release RxNorm: 434662 1 Table t(s) Oral QD 10/30/2019 10/29/2019 Inactive MS Contin 100 mg tablet,extended release RxNorm: 008134 1 Table t(s) Oral QD 10/30/2019 11/02/2019 Inactive Relistor 150 mg tablet RxNorm: 1684203 TAKE THREE TABLETS BY [facility]ENO[facility] DAILY 10/25/2019 No Stop Date Active pantoprazole 40 mg tablet,delayed release RxNorm: 363063 1 Tabl et(s) Oral QD 10/25/2019 No Stop Date Active Minipress 2 mg capsule RxNorm: 767079 1 Capsule(s) Oral QAM and 3 at bedtime 10/25/2019 No Stop Date Active Lancets, Super Thin RxNorm: 1 Unit Dose Miscellaneous QD 9 11/27/2020 Active Cymbalta 60 mg capsule,delayed release RxNorm: 394073 1 Capsule (s) Oral QAM 10/25/2019 No Stop Date Active Cymbalta 30 mg capsule,delayed release RxNorm: 774874 1 Capsule (s) Oral QAM 10/25/2019 No Stop Date Active oxycodone 15 mg tablet RxNorm: 0286522 1 Tablet(s) Oral four times a day as needed for pain 10/25/2019 11/28/2019 Inactive metformin 500 mg tablet RxNorm: 943104 1 Tablet(s) Oral QD 10/25/20 19 01/03/2020 Inactive levothyroxine 25 mcg tablet RxNorm: 017819 1 Tablet(s) Oral QAM 02/201912/19/2019 Inactive levothyroxine 25 mcg tablet RxNorm: 172336 1 Tablet(s) Oral QAM 02/201910/24/2019 Inactive MS Contin 100 mg tablet,extended release RxNorm: 670039 1 Tablet(s) Oral two times a day replaces fentanyl 10/25/2019 10/25/2019 Inactive Premarin 0.45 mg tablet RxNorm: 923686 TAKE ONE TABLET BY MOUTH DAILY 10/24/2019 01/30/2020 Inactive Duragesic 100 mcg/hr transdermal patch RxNorm: 675880 2 Application TD Q48H for pain 10/18/2019 10/24/2019 Inactive gabapentin 300 mg capsule RxNorm: 702136 TAKE ONE CAPSULE BY MO UTH TWICE A DAY 10/16/2019 01/15/2020 Inactive cyclobenzaprine 10 mg tablet RxNorm: 970872 TAKE ONE TA BLET BY MOUTH THREE TIMES A DAY NEEDED 09/27/2019 11/20/2019 Inactive Relistor 150 mg tablet RxNorm: 7820543 TAKE THREE TABLETS BY [facility]ENO[facility] DAILY 09/25/2019 10/24/2019 Inactive ProAir HFA 90 mcg/actuation aerosol inhaler RxNorm: 726899 INHALE ONE PUFF BY MOUTH EVERY 4 HOURS FOR WHEEZING OR FOR SHORTNESS OF BREATH 09/25/2019 01/03/2020 Inactive furosemide 40 mg tablet RxNorm: 930782 1 Tablet(s) Oral QAM as needed 09/25/2019 09/25/2019 Inactive oxycodone 15 mg tablet RxNorm: 9095881 1 Tablet(s) PO QID as nee ded for pain 09/21/2019 10/24/2019 Inactive Duragesic 100 mcg/hr transdermal patch RxNorm: 810605 2 Application TD Q48H for pain 09/19/2019 10/17/2019 Inactive Daliresp 500 mcg tablet RxNorm: 1276937 1 Tablet(s) Oral QD 019 02/18/2020 Inactive Relistor 150 mg tablet RxNorm: 8080478 TAKE THREE TABLETS BY BENOIT TH DAILY 07/25/2019 07/30/2019 Inactive cyclobenzaprine 10 mg tablet RxNorm: 510357 TAKE ONE TA BLET BY MOUTH THREE TIMES A DAY NEEDED 07/25/2019 09/22/2019 Inactive potassium chloride ER 20 mEq tablet,extended release RxNorm: 196770 TAKE ONE TABLET BY MOUTH DAILY 07/25/2019 01/07/2020 Inactive fluoxetine 40 mg capsule RxNorm: 196092 TAKE ONE CAPSULE BY BENOIT TH EVERY MORNING 07/11/2019 10/24/2019 Inactive Medrol (Aníbal) 4 mg tablets in a dose pack RxNorm: 472306 6 Tablet(s) PO QD --then as directed 07/10/2019 07/15/2019 Inactive omeprazole 40 mg capsule,delayed release RxNorm: 625738 1 Capsule(s) PO QD for stomach TAKE ONE CAPSULE BY MOUTH DAILY 07/10/2019 10/24/2019 Inactive Augmentin 875 mg-125 mg tablet RxNorm: 475196 1 Tablet(s) PO BID 07/16/2019 Inactive Trulicity 0.75 mg/0.5 mL subcutaneous pen injector RxNorm: 1 257160 0.75 Milliliter(s) SQ weekly 07/05/2019 10/24/2019 Inactive Compazine 10 mg tablet RxNorm: 491101 TAKE ONE TABLET B Y MOUTH FOUR TIMES A DAY NEEDED FOR NAUSEA 06/20/2019 07/19/2019 Inactive ProAir HFA 90 mcg/actuation aerosol inhaler RxNorm: 942224 INHALE ONE PUFF BY MOUTH EVERY 4 HOURS FOR WHEEZING OR FOR SHORTNESS OF BREATH 06/20/2019 06/23/2019 Inactive Daliresp 500 mcg tablet RxNorm: 5591895 TAKE ONE TABLET BY MOUTH DAILY 06/12/2019 09/10/2019 Inactive ccvddbmk-bayqttbco-fwavlrdsx 3.5 mg/mL-10,000 unit/mL- 1 % ear solution RxNorm: 064316 4 Drop(s) otic (ear) TID to left ear 06/05/2019 10/24/2019 Inac tive furosemide 40 mg tablet RxNorm: 039022 TAKE ONE TABLET BY MOUTH EVERY MORNING 05/26/2019 07/09/2019 Inactive Duragesic 100 mcg/hr transdermal patch RxNorm: 095196 2 Application TD Q48H for pain 05/16/2019 06/14/2019 Inactive oxycodone 15 mg tablet RxNorm: 3334312 1 Tablet(s) PO QID as nee ded for pain 05/10/2019 09/20/2019 Inactive doxycycline hyclate 100 mg capsule RxNorm: 7248667 1 Capsule(s) PO BID 05/03/2019 05/12/2019 Inactive prednisone 20 mg tablet RxNorm: 952831 1 Tablet(s) PO T ID for 3 days then 1 po BID for 3 days then one daily for 3 days 05/03/2019 07/11/2019 Inactiv e Ozempic 0.25 mg or 0.5 mg (2 mg/1.5 mL) subcutaneous p en injector RxNorm: 5140041 0.5 Milligram(s) SQ QW 05/03/2019 07/09/2019 Inactive fluconazole 100 mg tablet RxNorm: 621838 1 Tablet(s) PO QD 05/03/20 19 05/07/2019 Inactive Premarin 0.45 mg tablet RxNorm: 777042 TAKE ONE TABLET BY MOUTH DAILY 05/03/2019 10/23/2019 Inactive potassium chloride ER 20 mEq tablet,extended release RxNorm: 017393 1 Tablet(s) PO QD 04/27/2019 07/25/2019 Inactive potassium chloride ER 20 mEq tablet,extended release RxNorm: 861938 1 Tablet(s) PO QD 04/25/2019 04/26/2019 Inactive Compazine 10 mg tablet RxNorm: 884835 1 Tablet(s) PO QID as nee ded for nausea 04/25/2019 05/04/2019 Inactive ProAir HFA 90 mcg/actuation aerosol inhaler RxNorm: 813695 INHALE ONE PUFF BY MOUTH EVERY 4 HOURS FOR WHEEZING OR FOR SHORTNESS OF BREATH 04/12/2019 06/10/2019 Inactive Medrol (Aníbal) 4 mg tablets in a dose pack RxNorm: 765892 6 Tablet(s) PO QD --then as directed 04/11/2019 04/16/2019 Inactive Symbicort 160 mcg-4.5 mcg/actuation HFA aerosol inhaler RxNo rm: 8761060 2 Puff(s) INH BID 04/10/2019 10/06/2019 Inactive levothyroxine 50 mcg tablet RxNorm: 496652 1 Tablet(s) PO QD 201810/24/2019 Inactive gabapentin 300 mg capsule RxNorm: 605842 1 Capsule(s) PO BID 201810/02/2019 Inactive Symbicort 160 mcg-4.5 mcg/actuation HFA aerosol inhaler RxNo rm: 4149894 2 Puff(s) INH BID 04/06/2019 04/09/2019 Inactive oxycodone 15 mg tablet RxNorm: 9305863 1 Tablet(s) PO QID as nee ded for pain 04/05/2019 05/09/2019 Inactive levothyroxine 50 mcg tablet RxNorm: 560971 1 Tablet(s) PO QD 201804/09/2019 Inactive furosemide 40 mg tablet RxNorm: 658241 TAKE ONE TABLET BY MOUTH EVERY MORNING 03/21/2019 04/19/2019 Inactive levothyroxine 50 mcg tablet RxNorm: 514224 TAKE ONE TABLET BY M OUTH DAILY 03/21/2019 03/27/2019 Inactive Duragesic 100 mcg/hr transdermal patch RxNorm: 467060 2 Application TD Q48H for pain 03/13/2019 04/11/2019 Inactive oxycodone 15 mg tablet RxNorm: 3549968 1 Tablet(s) PO QID as nee ded for pain 03/06/2019 04/04/2019 Inactive Relistor 150 mg tablet RxNorm: 4135465 3 Tablet(s) PO QD 02/28/2019 0 05/28/2019 Inactive cyclobenzaprine 10 mg tablet RxNorm: 346004 1 Tablet(s) PO TID as needed 02/28/2019 05/28/2019 Inactive phentermine 37.5 mg tablet RxNorm: 118371 1 Tablet(s) PO QAM 201803/15/2019 Inactive Duragesic 100 mcg/hr transdermal patch RxNorm: 918417 2 Application TD Q48H for pain 02/09/2019 03/10/2019 Inactive Daliresp 500 mcg tablet RxNorm: 0648133 TAKE ONE TABLET BY MOUTH DAILY 01/31/2019 05/30/2019 Inactive Premarin 0.45 mg tablet RxNorm: 006046 1 Tablet(s) PO QD 01/31/2019 0 04/30/2019 Inactive fluoxetine 40 mg capsule RxNorm: 561550 Capsule(s) TAKE ONE CAPSULE BY MOUTH EVERY MORNING 01/31/2019 04/30/2019 Inactive levothyroxine 50 mcg tablet RxNorm: 063047 1 Tablet(s) PO QD 201804/10/2019 Inactive follow up in 3 weeks levothyroxine 50 mcg tablet RxNorm: 974209 1 Tablet(s) PO QD 201801/25/2019 Inactive follow up in 3 weeks potassium chloride ER 20 mEq tablet,extended release RxNorm: 840610 2 Tablet(s) PO BID 01/23/2019 01/08/2020 Inactive Synthroid 50 mcg tablet RxNorm: 546581 TAKE ONE TABLET BY MOUTH DAILY 01/16/2019 10/24/2019 Inactive potassium chloride ER 20 mEq tablet,extended release RxNorm: 721392 2 Tablet(s) PO BID 01/04/2019 01/22/2019 Inactive ProAir HFA 90 mcg/actuation aerosol inhaler RxNorm: 131262 INHALE ONE PUFF BY MOUTH EVERY 4 HOURS FOR WHEEZING OR SHORTNESS OF BREATH 01/04/201902/20 Inactive Request already responded to by other me ans (e.g. phone or fax) ProAir HFA 90 mcg/actuation aerosol inhaler RxNorm: 6954312 INHALE ONE PUFF BY MOUTH EVERY 4 HOURS FOR WHEEZING OR SHORTNESS OF BREATH 01/02/201912/23 Inactive gabapentin 300 mg capsule RxNorm: 547616 TAKE ONE CAPSULE BY MO UTH TWICE A DAY 12/30/2018 04/06/2019 Inactive furosemide 40 mg tablet RxNorm: 498035 1 Tablet(s) PO QAM 12/26/2018 02/23/2019 Inactive Compazine 10 mg tablet RxNorm: 328148 1 Tablet(s) PO QID as nee ded for nausea 12/07/2018 12/16/2018 Inactive metolazone 2.5 mg tablet RxNorm: 136109 TAKE ONE TABLET BY MOUT H EVERY MORNING 12/05/2018 01/03/2019 Inactive metformin ER 500 mg tablet,extended release 24 hr RxNorm: 86 0975 TAKE ONE TABLET BY MOUTH DAILY 12/05/2018 01/31/2020 Inactive Synthroid 50 mcg tablet RxNorm: 427170 1 Tablet(s) PO QD 11/25/2018 0 01/03/2019 Inactive DC any other synthroid strengths. Should be 50mcg only cyclobenzaprine 10 mg tablet RxNorm: 536262 TAKE ONE TA BLET BY MOUTH THREE TIMES A DAY NEEDED 11/09/2018 02/06/2019 Inactive metolazone 2.5 mg tablet RxNorm: 203096 1 Tablet(s) PO QAM repl aces 5mg dose 11/02/2018 12/01/2018 Inactive potassium chloride ER 20 mEq tablet,extended release RxNorm: 645404 2 Tablet(s) PO QD 2018 01/02/2019 Inactive Compazine 10 mg tablet RxNorm: 547833 1 Tablet(s) PO QID as nee ded for nausea 10/18/2018 12/07/2018 Inactive furosemide 40 mg tablet RxNorm: 209968 1 Tablet(s) PO QAM 10/12/2018 12/10/2018 Inactive ondansetron 8 mg disintegrating tablet RxNorm: 896423 1 Tablet(s) PO Q6H as needed 10/11/2018 10/17/2018 Inactive scopolamine 1 mg over 3 days transdermal patch RxNorm: 84630 2 1 Application TD behind ear. Take off after three days 10/11/2018 01/02/2019 Inactive furosemide 40 mg tablet RxNorm: 941316 1 Tablet(s) PO QAM 10/10/2018 12/26/2018 Inactive metolazone 5 mg tablet RxNorm: 012607 1 Tablet(s) PO QAM 10/06/2018 1 01/03/2018 Inactive metolazone 5 mg tablet RxNorm: 865117 1 Tablet(s) PO QAM 10/06/2018 1 12/05/2017 Inactive Xtampza ER 36 mg capsule sprinkle RxNorm: 6377324 1 Capsule(s) P O BID 10/05/2018 01/02/2019 Inactive Xtampza ER 36 mg capsule sprinkle RxNorm: 7574111 1 Capsule(s) P O BID 10/05/2018 02/12/2019 Inactive omeprazole 40 mg capsule,delayed release RxNorm: 404982 TAKE ONE CAPSULE BY MOUTH DAILY 10/03/2018 12/31/2018 Inactive Duragesic 100 mcg/hr transdermal patch RxNorm: 421591 2 Application TD Q48H for pain 09/30/2018 10/29/2018 Inactive Synthroid 50 mcg tablet RxNorm: 897880 1 Tablet(s) PO QD 09/29/2018 0 11/25/2018 Inactive DC any other synthroid strengths. Should be 50mcg only Synthroid 50 mcg tablet RxNorm: 166476 1 Tablet(s) PO QD 09/29/2018 1 11/28/2017 Inactive furosemide 40 mg tablet RxNorm: 638356 2 Tablet(s) PO Q AM for 1 week then every other day for 2 weeks 09/27/2018 10/12/2018 Inactive fluoxetine 40 mg capsule RxNorm: 398931 2 Capsule(s) PO QD 09/27/20 18 10/17/2018 Inactive potassium chloride ER 20 mEq tablet,extended release RxNorm: 950700 2 Tablet(s) PO QD for 1 week then every other day for 2 weeks 09/27/2018 2018 Inactive ProAir HFA 90 mcg/actuation aerosol inhaler RxNorm: 6838429 INHALE ONE PUFF BY MOUTH EVERY 4 HOURS FOR WHEEZING OR SHORTNESS OF BREATH 09/26/201811/23 Inactive Synthroid 75 mcg tablet RxNorm: 113209 1 Tablet(s) PO QD 09/09/2018 1 Inactive Synthroid 75 mcg tablet RxNorm: 174464 1 Tablet(s) PO QD 09/09/2018 1 11/28/2017 Inactive furosemide 40 mg tablet RxNorm: 914553 1 Tablet(s) PO QD 09/06/2018 1 Inactive potassium chloride ER 20 mEq tablet,extended release RxNorm: 506094 1 Tablet(s) PO QD 09/06/2018 09/19/2018 Inactive Duragesic 100 mcg/hr transdermal patch RxNorm: 770659 2 Application TD Q48H for pain 08/30/2018 09/28/2018 Inactive gabapentin 300 mg capsule RxNorm: 352180 TAKE ONE CAPSULE BY [facility] TWICE A DAY 08/23/2018 12/20/2018 Inactive Daliresp 500 mcg tablet RxNorm: 2051207 TAKE ONE TABLET BY MOUTH DAILY 08/23/2018 01/19/2019 Inactive Pulmicort 1 mg/2 mL suspension for nebulization RxNorm: 6168 19 USE ONE VIAL VIA NEBULIZER BY MOUTH TWICE A DAY 08/23/2018 07/11/2019 Inactive Synthroid 88 mcg tablet RxNorm: 932696 1 Tablet(s) PO QD 08/19/2018 Inactive Medrol (Aníbal) 4 mg tablets in a dose pack RxNorm: 089190 Tablet(s) PO take as directed 08/16/2018 09/05/2018 Inactive Relistor 150 mg tablet RxNorm: 4931670 3 Tablet(s) PO QD 08/16/2018 Inactive Zithromax Z-Aníbal 250 mg tablet RxNorm: 324282 Tablet(s) PO take as directed 08/16/2018 09/05/2018 Inactive cyclobenzaprine 10 mg tablet RxNorm: 885474 1 Tablet(s) PO TID as needed 08/16/2018 11/08/2018 Inactive Synthroid 88 mcg tablet RxNorm: 590646 1 Tablet(s) PO Q D NEEDS UPDATED LABS BEFORE FURTHER REFILLS 08/08/2018 08/19/2018 Inactive Premarin 0.45 mg tablet RxNorm: 700527 1 Tablet(s) PO QD 08/03/2018 0 01/31/2019 Inactive fluoxetine 20 mg capsule RxNorm: 566336 TAKE ONE CAPSULE BY BENOIT TH DAILY 08/03/2018 09/26/2018 Inactive Xtampza ER 36 mg capsule sprinkle RxNorm: 3299938 1 Capsule(s) P O BID 08/03/2018 09/01/2018 Inactive metformin ER 500 mg tablet,extended release 24 hr RxNorm: 86 0975 1 Tablet(s) PO QD 08/03/2018 10/31/2018 Inactive Symbicort 160 mcg-4.5 mcg/actuation HFA aerosol inhaler RxNo rm: 0752716 2 Puff(s) INH BID 08/03/2018 01/29/2019 Inactive Duragesic 100 mcg/hr transdermal patch RxNorm: 610055 2 Application TD Q48H for pain 07/29/2018 08/27/2018 Inactive ProAir HFA 90 mcg/actuation aerosol inhaler RxNorm: 334404 INHALE TWO PUFFS BY MOUTH EVERY 4 HOURS FOR WHEEZING OR SHORTNESS OF BREATH 07/27/201802/2018 Inactive Relistor 150 mg tablet RxNorm: 5348071 3 Tablet(s) PO QD 07/20/2018 0 08/15/2018 Inactive metformin ER 500 mg tablet,extended release 24 hr RxNorm: 86 0975 TAKE ONE TABLET BY MOUTH DAILY 07/08/2018 08/02/2018 Inactive fluoxetine 40 mg capsule RxNorm: 760367 TAKE ONE CAPSULE BY BENOIT TH EVERY MORNING 07/08/2018 10/05/2018 Inactive Xtampza ER 18 mg capsule sprinkle RxNorm: 8043013 1 Capsule(s) P O BID 07/08/2018 08/02/2018 Inactive Relistor 150 mg tablet RxNorm: 6954203 3 Tablet(s) PO QD 07/08/2018 0 07/12/2018 Inactive Synthroid 88 mcg tablet RxNorm: 541758 1 Tablet(s) PO Q D NEEDS UPDATED LABS BEFORE FURTHER REFILLS 06/23/2018 07/07/2018 Inactive fluoxetine 40 mg capsule RxNorm: 544501 TAKE ONE CAPSULE BY BENOIT TH EVERY MORNING 06/15/2018 09/26/2018 Inactive orphenadrine citrate ER 100 mg tablet,extended release RxNor m: 176609 TAKE ONE TABLET BY MOUTH TWICE A DAY FOR MUSCLE SPASM 06/15/2018 08/15/2018 [place] [facility] Duragesic 100 mcg/hr transdermal patch RxNorm: 641744 2 Application TD Q48H for pain 05/30/2018 06/28/2018 Inactive ProAir HFA 90 mcg/actuation aerosol inhaler RxNorm: 873940 INHALE TWO PUFFS BY MOUTH EVERY 4 HOURS FOR WHEEZING OR SHORTNESS OF BREATH 05/19/201803/2018 Inactive Chantix Continuing Month Box 1 mg tablet RxNorm: 342572 TAKE ONE TABLET BY MOUTH TWICE A DAY 05/19/2018 08/15/2018 Inactive oxycodone 10 mg tablet RxNorm: 7944034 1-2 Tablet(s) PO QID as n eeded for pain 05/19/2018 07/07/2018 Inactive gabapentin 300 mg capsule RxNorm: 332138 TAKE ONE CAPSULE BY MO ALH TWICE A DAY 05/18/2018 07/16/2018 Inactive ProAir HFA 90 mcg/actuation aerosol inhaler RxNorm: 874919 INHALE TWO PUFFS BY MOUTH EVERY 4 HOURS FOR WHEEZING OR SHORTNESS OF BREATH 05/04/201804/23 Inactive Augmentin 500 mg-125 mg tablet RxNorm: 115248 1 Tablet(s) PO BID 05/03/2018 Inactive oxycodone 10 mg tablet RxNorm: 7571260 1-2 Tablet(s) PO QID as n eeded for pain 04/21/2018 05/18/2018 Inactive Synthroid 88 mcg tablet RxNorm: 993378 1 Tablet(s) PO QD 04/15/2018 0 08/08/2018 Inactive Symbicort 160 mcg-4.5 mcg/actuation HFA aerosol inhaler RxNo rm: 8592683 2 Puff(s) INH BID 04/15/2018 04/10/2019 Inactive Premarin 0.45 mg tablet RxNorm: 094488 1 Tablet(s) PO QD 04/15/2018 0 08/03/2018 Inactive ProAir HFA 90 mcg/actuation aerosol inhaler RxNorm: 146073 2 Puff(s) INH Q4H prn for wheezing or shortness of breath 04/15/2018 05/03/2018 Inactive metformin ER 500 mg tablet,extended release 24 hr RxNorm: 86 0975 1 Tablet(s) PO QD 04/11/2018 07/07/2018 Inactive omeprazole 40 mg capsule,delayed release RxNorm: 889090 TAKE ONE CAPSULE BY MOUTH DAILY 04/10/2018 06/08/2018 Inactive Synthroid 88 mcg tablet RxNorm: 069223 1 Tablet(s) PO QD 04/04/2018 0 04/14/2018 Inactive Synthroid 88 mcg tablet RxNorm: 736575 1 Tablet(s) PO QD 04/04/2018 0 04/03/2018 Inactive orphenadrine citrate ER 100 mg tablet,extended release RxNor m: 490507 1 Tablet(s) PO BID for muscle spasm 04/04/2018 05/03/2018 Inactive metformin ER 500 mg tablet,extended release 24 hr RxNorm: 86 0975 1 Tablet(s) PO QD NEEDS UPDATED LABS 03/31/2018 04/11/2018 Inactive doxycycline hyclate 100 mg capsule RxNorm: 1198367 1 Capsule(s) PO BID 03/31/2018 04/09/2018 Inactive prednisone 20 mg tablet RxNorm: 151958 3 Tablet(s) PO T ID for 3 days then 1 po BID for 3 days then one daily for 3 days 03/31/2018 07/06/2018 Inactiv e Chantix Continuing Month Box 1 mg tablet RxNorm: 700166 TAKE ONE TABLET BY MOUTH TWICE A DAY 03/25/2018 03/30/2018 Inactive oxycodone 10 mg tablet RxNorm: 0060197 1-2 Tablet(s) PO QID as n eeded for pain 03/21/2018 04/20/2018 Inactive Daliresp 500 mcg tablet RxNorm: 5668106 1 Tablet(s) PO QD 03/15/2018 08/22/2018 Inactive metformin ER 500 mg tablet,extended release 24 hr RxNorm: 86 0975 1 Tablet(s) PO QD NEEDS UPDATED LABS 03/14/2018 03/31/2018 Inactive nystatin 100,000 unit/mL oral suspension RxNorm: 846774 5 [place] liter(s) PO QID 03/02/2018 03/15/2018 Inactive nystatin 100,000 unit/mL oral suspension RxNorm: 532584 5 [place]io liter(s) PO QID 03/02/2018 03/01/2018 Inactive oxycodone 10 mg tablet RxNorm: 1008486 1-2 Tablet(s) PO QID as n eeded for pain 02/16/2018 03/20/2018 Inactive fluoxetine 20 mg capsule RxNorm: 795106 1 Capsule(s) PO QD 02/15/20 18 08/02/2018 Inactive metformin ER 500 mg tablet,extended release 24 hr RxNorm: 86 0975 1 Tablet(s) PO QD Needs updated labs 02/14/2018 03/14/2018 Inactive cefdinir 300 mg capsule RxNorm: 519737 1 Capsule(s) PO BID 01/27/20 18 02/04/2018 Inactive orphenadrine citrate ER 100 mg tablet,extended release RxNor m: 363187 1 Tablet(s) PO BID for muscle spasm 01/26/2018 04/04/2018 Inactive gabapentin 300 mg capsule RxNorm: 938333 1 Capsule(s) PO BID 201704/17/2018 Inactive oxycodone 10 mg tablet RxNorm: 6045433 1-2 Tablet(s) PO QID as n eeded for pain 01/17/2018 02/15/2018 Inactive Duragesic 100 mcg/hr transdermal patch RxNorm: 435540 2 Application TD Q48H for pain 01/17/2018 02/15/2018 Inactive gabapentin 300 mg capsule RxNorm: 507279 TAKE ONE CAPSULE BY MO UTH TWICE A DAY 12/20/2017 01/18/2018 Inactive fluoxetine 40 mg capsule RxNorm: 171360 TAKE ONE CAPSULE BY BENOIT TH EVERY MORNING 12/15/2017 03/14/2018 Inactive OneTouch Ultra Test strips RxNorm: TEST DAILY 11/04/2017 02/01/2018 Inactive gabapentin 300 mg capsule RxNorm: 630581 1 Capsule(s) P O TID replaces BID dosing 10/26/2017 02/22/2018 Inactive oxycodone 10 mg tablet RxNorm: 0142490 1-2 Tablet(s) PO QID as n eeded for pain 10/18/2017 01/16/2018 Inactive Duragesic 100 mcg/hr transdermal patch RxNorm: 578683 2 Application TD Q48H for pain 10/18/2017 11/16/2017 Inactive gabapentin 300 mg capsule RxNorm: 726648 1 Capsule(s) PO BID 201610/25/2017 Inactive Abilify 5 mg tablet RxNorm: 779956 1 Tablet(s) PO QAM 09/23/201702/2017 Inactive gabapentin 300 mg capsule RxNorm: 419686 1 Capsule(s) PO BID 201610/17/2017 Inactive oxycodone 10 mg tablet RxNorm: 1249078 1-2 Tablet(s) PO QID as n eeded for pain 09/15/2017 10/17/2017 Inactive Duragesic 100 mcg/hr transdermal patch RxNorm: 432791 2 Application TD Q48H for pain 09/15/2017 10/14/2017 Inactive Duragesic 100 mcg/hr transdermal patch RxNorm: 557963 2 Application TD Q48H for pain 09/15/2017 10/24/2019 Inactive oxycodone 10 mg tablet RxNorm: 1481842 1-2 Tablet(s) PO QID as n eeded for pain 09/15/2017 08/15/2018 Inactive Daliresp 500 mcg tablet RxNorm: 4850644 1 Tablet(s) PO QD 09/06/2017 03/15/2018 Inactive Ventolin HFA 90 mcg/actuation aerosol inhaler RxNorm: 119031 2 Puff(s) INH Q4H as needed 09/02/2017 05/19/2018 Inactive oxycodone 10 mg tablet RxNorm: 0298591 1-2 Tablet(s) PO QID as n eeded for pain 08/17/2017 09/14/2017 Inactive Duragesic 100 mcg/hr transdermal patch RxNorm: 726611 2 Application TD Q48H for pain 08/17/2017 09/14/2017 Inactive fluoxetine 40 mg capsule RxNorm: 277174 Capsule(s) TAKE ONE CAPSULE BY MOUTH EVERY MORNING 08/17/2017 12/14/2017 Inactive Pulmicort 1 mg/2 mL suspension for nebulization RxNorm: 6168 19 1 Unit Dose INH BID Dx: COPD (J44.9) 08/16/2017 08/22/2018 Inactive gabapentin 300 mg capsule RxNorm: 715330 1 Capsule(s) PO QHS 201610/18/2017 Inactive fluoxetine 20 mg capsule RxNorm: 688513 1 Capsule(s) PO QD 08/12/20 17 02/14/2018 Inactive Abilify 2 mg tablet RxNorm: 449793 1 Tablet(s) PO QD TA KE ONE TABLET BY MOUTH DAILY 08/12/2017 10/25/2017 Inactive metformin ER 500 mg tablet,extended release 24 hr RxNorm: 86 0975 1 Tablet(s) PO QD 08/10/2017 02/14/2018 Inactive Synthroid 112 mcg tablet RxNorm: 734693 1 Tablet(s) PO QD 08/10/2017 04/15/2018 Inactive oxycodone 10 mg tablet RxNorm: 8306421 1-2 Tablet(s) PO QID as n eeded for pain 07/19/2017 08/16/2017 Inactive Duragesic 100 mcg/hr transdermal patch RxNorm: 598120 2 Application TD Q48H for pain 07/19/2017 08/16/2017 Inactive Ventolin HFA 90 mcg/actuation aerosol inhaler RxNorm: 822444 2 Puff(s) INH Q4H as needed 07/12/2017 09/02/2017 Inactive Abilify 2 mg tablet RxNorm: 693497 1 Tablet(s) PO QD TA KE ONE TABLET BY MOUTH DAILY 07/06/2017 08/11/2017 Inactive gabapentin 800 mg tablet RxNorm: 301726 1 Tablet(s) PO TID 06/22/20 17 07/05/2017 Inactive Chantix Starting Month Box 0.5 mg (11)-1 mg (42) table ts in dose pack RxNorm: 126745 TAKE BY MOUTH INSTRUCTED - PER PACKAGE INSTRUCTIONS 06/0707/04/2017 Inactive Ventolin HFA 90 mcg/actuation aerosol inhaler RxNorm: 536617 2 Puff(s) INH Q4H as needed 05/26/2017 07/12/2017 Inactive Duragesic 100 mcg/hr transdermal patch RxNorm: 527347 2 Application TD Q48H for pain 05/19/2017 06/17/2017 Inactive oxycodone 10 mg tablet RxNorm: 0986517 1-2 Tablet(s) PO QID as n eeded for pain 05/19/2017 07/18/2017 Inactive Abilify 2 mg tablet RxNorm: 040461 TAKE ONE TABLET BY MOUTH DAILY 0 05/10/2017 07/05/2017 Inactive Synthroid 112 mcg tablet RxNorm: 748669 1 Tablet(s) PO QD 05/06/2017 08/10/2017 Inactive metformin ER 500 mg tablet,extended release 24 hr RxNorm: 86 0975 1 Tablet(s) PO QD 05/06/2017 08/10/2017 Inactive Topamax 100 mg tablet RxNorm: 124679 1 Tablet(s) PO QHS 05/06/2017 Inactive Premarin 0.45 mg tablet RxNorm: 784450 1 Tablet(s) PO QD 05/06/2017 0 04/15/2018 Inactive orphenadrine citrate ER 100 mg tablet,extended release RxNor m: 889066 1 Tablet(s) PO TID for muscle spasm--replaces methocarbamol 04/29/2017 Inactive oxycodone 10 mg tablet RxNorm: 8667527 1-2 Tablet(s) PO QID as n eeded for pain 04/21/2017 05/18/2017 Inactive Duragesic 100 mcg/hr transdermal patch RxNorm: 462908 2 Application TD Q48H for pain 04/21/2017 05/18/2017 Inactive fluoxetine 40 mg capsule RxNorm: 955776 Capsule(s) TAKE ONE CAPSULE BY MOUTH EVERY MORNING 04/20/2017 08/17/2017 Inactive Ventolin HFA 90 mcg/actuation aerosol inhaler RxNorm: 102208 2 Puff(s) INH Q4H as needed 04/05/2017 05/26/2017 Inactive Symbicort 160 mcg-4.5 mcg/actuation HFA aerosol inhaler RxNo rm: 6104589 2 Puff(s) INH BID 03/30/2017 04/15/2018 Inactive Spiriva with HandiHaler 18 mcg and inhalation capsules RxNor m: 816637 1 Capsule(s) INH QD USING HANDIHALER 03/30/2017 02/12/2019 Inactive Duragesic 100 mcg/hr transdermal patch RxNorm: 447756 2 Application TD Q48H for pain 03/18/2017 04/16/2017 Inactive oxycodone 10 mg tablet RxNorm: 4578853 1-2 Tablet(s) PO QID as n eeded for pain 03/18/2017 04/20/2017 Inactive metformin ER 500 mg tablet,extended release 24 hr RxNorm: 86 0975 Tablet(s) TAKE ONE TABLET BY MOUTH DAILY 03/01/2017 05/06/2017 Inactive Premarin 0.45 mg tablet RxNorm: 202489 Tablet(s) TAKE ONE TABLE T BY MOUTH DAILY 03/01/2017 05/06/2017 Inactive Synthroid 112 mcg tablet RxNorm: 858217 Tablet(s) TAKE ONE TABLET BY MOUTH DAILY 03/01/2017 05/06/2017 Inactive Daliresp 500 mcg tablet RxNorm: 0946281 1 Tablet(s) PO QD 03/01/2017 09/06/2017 Inactive 16.2 mg-0.1037 mg-0.0194 mg tablet RxNorm: 8696947 Tablet(s) PO PRN for gas and cramping 02/23/2017 04/28/2017 Inactive TAKE TWO TABLET S BY MOUTH THREE TIMES A DAY NEEDED FOR GAS AND CRAMPING gabapentin 800 mg tablet RxNorm: 665318 1 Tablet(s) PO TID repl aces 600mg 02/23/2017 04/28/2017 Inactive Duragesic 100 mcg/hr transdermal patch RxNorm: 022159 2 Application TD Q48H for pain 02/17/2017 03/17/2017 Inactive fluoxetine 20 mg capsule RxNorm: 135685 1 Capsule(s) PO QD 02/18/20 17 08/12/2017 Inactive oxycodone 20 mg tablet RxNorm: 8236784 1 Tablet(s) PO QID as nee ded for pain 02/17/2017 03/17/2017 Inactive Ventolin HFA 90 mcg/actuation aerosol inhaler RxNorm: 116813 INHALE TWO PUFFS BY MOUTH EVERY 4 HOURS NEEDED 02/15/2017 04/05/2017 Inactive Silvadene 1 % topical cream RxNorm: 473926 1 Application TOP BI D to burn area 02/01/2017 09/22/2017 Inactive Topamax 100 mg tablet RxNorm: 712839 TAKE ONE TABLET BY MOUTH EVERY NIGHT AT BEDTIME 01/29/2017 05/06/2017 Inactive Chantix Starting Month Box 0.5 mg (11)-1 mg (42) table ts in dose pack RxNorm: 569706 Tablet(s) PO as directed 01/29/2017 06/01/2017 Inactive Abilify 2 mg tablet RxNorm: 776897 TAKE ONE TABLET BY MOUTH DAILY 0 01/26/2017 04/25/2017 Inactive Chantix Starting Month Box 0.5 mg (11)-1 mg (42) table ts in dose pack RxNorm: 766703 Tablet(s) PO as directed 01/20/2017 01/28/2017 Inactive gabapentin 600 mg tablet RxNorm: 551145 1 Tablet(s) PO TID 01/21/20 17 02/22/2017 Inactive Chantix Continuing Month Box 1 mg tablet RxNorm: 451158 1 Table t(s) PO BID 12/31/2016 06/01/2017 Inactive Spiriva with HandiHaler 18 mcg and inhalation capsules RxNor m: 505220 INHALE THE ENTIRE CONTENTS OF 1 CAPSULE ONCE A DAY USING HANDIHALER 12/31/201607/2017 Inactive Synthroid 112 mcg tablet RxNorm: 020871 TAKE ONE TABLET BY MOUT H DAILY 12/30/2016 03/01/2017 Inactive metformin ER 500 mg tablet,extended release 24 hr RxNorm: 86 0975 TAKE ONE TABLET BY MOUTH DAILY 12/30/2016 03/01/2017 Inactive Premarin 0.45 mg tablet RxNorm: 732031 TAKE ONE TABLET BY MOUTH DAILY 12/30/2016 03/01/2017 Inactive omeprazole 40 mg capsule,delayed release RxNorm: 156274 TAKE ONE CAPSULE BY MOUTH DAILY 12/30/2016 01/25/2018 Inactive Ventolin HFA 90 mcg/actuation aerosol inhaler RxNorm: 695317 INHALE TWO PUFFS BY MOUTH EVERY 4 HOURS NEEDED 12/28/2016 02/13/2017 Inactive fluoxetine 40 mg capsule RxNorm: 490737 TAKE ONE CAPSULE BY BENOIT TH EVERY MORNING 12/15/2016 04/20/2017 Inactive Chantix Continuing Month Box 1 mg tablet RxNorm: 172876 TAKE ONE TABLET BY MOUTH TWICE A DAY 12/04/2016 12/31/2016 Inactive doxycycline hyclate 100 mg capsule RxNorm: 4925711 1 Capsule(s) PO BID 12/01/2016 12/07/2016 Inactive Levaquin 750 mg tablet RxNorm: 696537 1 Tablet(s) PO QD 12/01/2016 Inactive Abilify 2 mg tablet RxNorm: 432865 TAKE ONE TABLET BY MOUTH DAILY 0 11/25/2016 11/30/2016 Inactive Ventolin HFA 90 mcg/actuation aerosol inhaler RxNorm: 290986 INHALE TWO PUFFS BY MOUTH EVERY 4 HOURS NEEDED 11/02/2016 12/19/2016 Inactive Chantix Continuing Month Box 1 mg tablet RxNorm: 273829 Tablet(s) PO as directed 10/30/2016 12/03/2016 Inactive Symbicort 160 mcg-4.5 mcg/actuation HFA aerosol inhaler RxNo rm: 0950116 INHALE TWO PUFFS TWO TIMES A DAY 10/30/2016 03/30/2017 Inactive Abilify 2 mg tablet RxNorm: 067086 1 Tablet(s) PO QD 10/27/201611/24 Inactive amoxicillin 500 mg capsule RxNorm: 146609 1 Capsule(s) PO TID 10/1410/23/2016 Inactive amoxicillin 500 mg capsule RxNorm: 660163 1 Capsule(s) PO TID 10/1410/13/2016 Inactive Synthroid 112 mcg tablet RxNorm: 914184 TAKE ONE TABLET BY MOUT H DAILY 09/28/2016 12/29/2016 Inactive Topamax 100 mg tablet RxNorm: 709189 TAKE ONE TABLET BY MOUTH EVERY NIGHT AT BEDTIME 09/28/2016 01/28/2017 Inactive Premarin 0.45 mg tablet RxNorm: 730124 TAKE ONE TABLET BY MOUTH DAILY 09/28/2016 12/29/2016 Inactive metformin ER 500 mg tablet,extended release 24 hr RxNorm: 86 0975 TAKE ONE TABLET BY MOUTH DAILY 09/28/2016 12/29/2016 Inactive Ventolin HFA 90 mcg/actuation aerosol inhaler RxNorm: 404490 INHALE TWO PUFFS BY MOUTH EVERY 4 HOURS NEEDED 09/22/2016 10/23/2016 Inactive Pulmicort 1 mg/2 mL suspension for nebulization RxNorm: 6168 19 1 Unit Dose INH BID Dx: COPD (J44.9) 09/10/2016 08/16/2017 Inactive Pulmicort 1 mg/2 mL suspension for nebulization RxNorm: 6168 19 1 Unit Dose INH BID 09/10/2016 09/09/2016 Inactive Brovana 15 mcg/2 mL solution for nebulization RxNorm: 951222 1 Unit Dose INH BID Dx: COPD (J44.9) 09/10/2016 01/25/2018 Inactive Brovana 15 mcg/2 mL solution for nebulization RxNorm: 661010 1 Unit Dose INH BID 09/10/2016 09/09/2016 Inactive ipratropium-albuterol 0.5 mg-3 mg(2.5 mg base)/3 mL ne bulization soln RxNorm: 4302550 1 Unit Dose INH Q4H as needed Dx: COPD (J44.9) 09/10/2016 0 02/12/2019 Inactive orphenadrine citrate ER 100 mg tablet,extended release RxNor m: 196264 1 Tablet(s) PO BID for muscle spasm--replaces methocarbamol 09/09/2016 Inactive Chantix Continuing Month Box 1 mg tablet RxNorm: 335936 Tablet(s) PO as directed 09/09/2016 10/30/2016 Inactive orphenadrine citrate ER 100 mg tablet,extended release RxNor m: 472157 1 Tablet(s) PO BID for muscle spasm 09/09/2016 09/08/2016 Inactive Spiriva with HandiHaler 18 mcg and inhalation capsules RxNor m: 960775 INHALE THE ENTIRE CONTENTS OF 1 CAPSULE ONCE A DAY USING HANDIHALER 09/01/201605/2017 Inactive Daliresp 500 mcg tablet RxNorm: 3255363 1 Tablet(s) PO QD 08/27/2016 03/01/2017 Inactive prednisone 20 mg tablet RxNorm: 196791 3 Tablet(s) PO T ID for 3 days then 1 po BID for 3 days then one daily for 3 days 08/26/2016 04/28/2017 Inactiv e Wellbutrin XL 300 mg 24 hr tablet, extended release RxNorm: 867837 TAKE ONE TABLET BY MOUTH EVERY MORNING 07/29/2016 10/26/2016 Inactive gabapentin 600 mg tablet RxNorm: 850184 1 Tablet(s) PO BID 06/26/20 16 12/22/2016 Inactive fluoxetine 40 mg capsule RxNorm: 110293 TAKE ONE CAPSULE BY BENOIT TH EVERY MORNING 06/24/2016 11/20/2016 Inactive Duragesic 100 mcg/hr transdermal patch RxNorm: 664629 2 Application TD Q48H for pain 06/05/2016 07/04/2016 Inactive oxycodone 10 mg tablet RxNorm: 7741020 1-2 Tablet(s) PO QID as n eeded for pain 06/05/2016 03/17/2017 Inactive Belladonna-Phenobarbital 48 mg tablet,extended release RxNor m: 2 Tablet(s) PO TID 06/05/2016 01/19/2017 Inactive Premarin 0.45 mg tablet RxNorm: 982407 TAKE ONE TABLET BY MOUTH DAILY 05/27/2016 09/23/2016 Inactive Topamax 100 mg tablet RxNorm: 394384 TAKE ONE TABLET BY MOUTH EVERY NIGHT AT BEDTIME 05/27/2016 09/27/2016 Inactive Synthroid 112 mcg tablet RxNorm: 783378 TAKE ONE TABLET BY MOUT H DAILY 05/27/2016 09/23/2016 Inactive metformin ER 500 mg tablet,extended release 24 hr RxNorm: 86 0975 TAKE ONE TABLET BY MOUTH DAILY 05/27/2016 09/23/2016 Inactive Symbicort 160 mcg-4.5 mcg/actuation HFA aerosol inhaler RxNo rm: 6291984 INHALE TWO PUFFS TWO TIMES A DAY 05/27/2016 10/23/2016 Inactive Ventolin HFA 90 mcg/actuation aerosol inhaler RxNorm: 063043 INHALE TWO PUFFS BY MOUTH EVERY 4 HOURS NEEDED 05/21/2016 07/07/2016 Inactive omeprazole 40 mg capsule,delayed release RxNorm: 132752 1 Capsu le(s) PO QD 05/06/2016 08/03/2016 Inactive metformin ER 500 mg tablet,extended release 24 hr RxNorm: 86 0975 TAKE ONE TABLET BY MOUTH DAILY 04/23/2016 05/22/2016 Inactive methocarbamol 750 mg tablet RxNorm: 797412 2 Tablet(s) PO TID as needed for muscle spasm 04/23/2016 09/08/2016 Inactive Synthroid 112 mcg tablet RxNorm: 616660 TAKE ONE TABLET BY MOUT H DAILY 04/23/2016 05/22/2016 Inactive Spiriva with HandiHaler 18 mcg and inhalation capsules RxNor m: 616460 INHALE THE ENTIRE CONTENTS OF 1 CAPSULE ONCE A DAY USING HANDIHALER 04/09/201608/2016 Inactive Diflucan 100 mg tablet RxNorm: 156135 1 Tablet(s) PO QD 04/08/2016 Inactive doxycycline hyclate 100 mg capsule RxNorm: 4740903 1 Capsule(s) PO BID 04/08/2016 04/17/2016 Inactive doxycycline hyclate 100 mg capsule RxNorm: 0271961 1 Capsule(s) PO BID 04/08/2016 04/07/2016 Inactive Diflucan 100 mg tablet RxNorm: 857172 1 Tablet(s) PO QD 04/08/2016 Inactive ondansetron HCl 4 mg tablet RxNorm: 081239 1 Tablet(s) PO Q4H as needed for nausea and vomiting 04/08/2016 09/22/2017 Inactive gabapentin 600 mg tablet RxNorm: 683453 TAKE ONE TABLET BY MOUT H TWICE A DAY 03/24/2016 06/25/2016 Inactive Synthroid 112 mcg tablet RxNorm: 298014 TAKE ONE TABLET BY MOUT H DAILY 02/25/2016 04/22/2016 Inactive Levaquin 500 mg tablet RxNorm: 976283 1 Tablet(s) PO QD 01/23/2016 Inactive prednisone 20 mg tablet RxNorm: 434569 1 Tablet(s) PO T ID for 3 days then 1 po BID for 3 days then one daily for 3 days 01/23/2016 08/25/2016 Inactiv e Melinta Ultra Test strips RxNorm: TEST BLOOD SUGAR ONCE DAILY 250.00 01/09/2016 11/04/2017 Inactive methocarbamol 750 mg tablet RxNorm: 644930 2 Tablet(s) PO TID as needed for muscle spasm 01/09/2016 04/23/2016 Inactive lactulose 10 gram/15 mL oral solution RxNorm: 417377 [address](s) PO QD 01/09/2016 09/22/2017 Inactive TAKE 1 TABLESPOON BY MOUTH ONCE DAILY metformin ER 500 mg tablet,extended release 24 hr RxNorm: 86 0975 1 Tablet(s) PO QD 12/26/2015 04/22/2016 Inactive fluoxetine 20 mg capsule RxNorm: 332854 1 Capsule(s) PO QD 12/23/19 16 06/19/2016 Inactive Premarin 0.45 mg tablet RxNorm: 757133 TAKE ONE TABLET BY MOUTH DAILY 12/23/2015 05/20/2016 Inactive fluoxetine 40 mg capsule RxNorm: 665609 1 Capsule(s) PO QD 12/23/19 16 06/19/2016 Inactive TAKE ONE CAPSULE BY MOUTH EV JANKI MORNING azithromycin 500 mg tablet RxNorm: 400015 1 Tablet(s) PO QD 016 12/19/2015 Inactive Zofran 4 mg tablet RxNorm: 212626 1 Tablet(s) PO Q4H prn nausea /vomiting 12/13/2015 03/30/2018 Inactive azithromycin 500 mg tablet RxNorm: 364944 1 Tablet(s) PO QD 016 12/12/2015 Inactive Duragesic 100 mcg/hr transdermal patch RxNorm: 255886 2 Application TD Q48H for pain 12/09/2015 01/07/2016 Inactive oxycodone 10 mg tablet RxNorm: 0055438 1-2 Tablet(s) PO QID as n eeded for pain 12/09/2015 06/04/2016 Inactive Bactroban 2 % topical cream RxNorm: 683875 Application TOP BID 11/2208/25/2016 Inactive doxycycline hyclate 100 mg capsule RxNorm: 3297823 1 Capsule(s) PO BID 12/03/2015 12/12/2015 Inactive Topamax 100 mg tablet RxNorm: 495902 TAKE ONE TABLET BY MOUTH EVERY NIGHT AT BEDTIME 11/25/2015 05/22/2016 Inactive Symbicort 160 mcg-4.5 mcg/actuation HFA aerosol inhaler RxNo rm: 4229177 INHALE TWO PUFFS TWO TIMES A DAY 11/25/2015 05/22/2016 Inactive Synthroid 112 mcg tablet RxNorm: 491883 Tablet(s) TAKE ONE TABLET BY MOUTH DAILY 11/25/2015 02/22/2016 Inactive omeprazole 40 mg capsule,delayed release RxNorm: 650754 1 Capsu le(s) PO QD 11/12/2015 05/05/2016 Inactive oxycodone 10 mg tablet RxNorm: 2021608 1-2 Tablet(s) PO QID as n eeded for pain 11/05/2015 12/08/2015 Inactive Duragesic 100 mcg/hr transdermal patch RxNorm: 066624 2 Application TD Q48H for pain 11/05/2015 12/04/2015 Inactive omeprazole 40 mg capsule,delayed release RxNorm: 674821 1 Capsu le(s) PO QD 10/07/2015 11/11/2015 Inactive Januvia 100 mg tablet RxNorm: 990098 TAKE ONE TABLET BY MOUTH DAILY 09/11/2015 12/25/2015 Inactive Zithromax 500 mg tablet RxNorm: 243028 1 Tablet(s) PO QD 09/10/2015 1 Inactive prednisone 20 mg tablet RxNorm: 550932 1 Tablet(s) PO T ID for 3 days then 1 po BID for 3 days then one daily for 3 days 09/10/2015 08/25/2016 Inactiv e Wellbutrin XL 300 mg 24 hr tablet, extended release RxNorm: 615505 1 Tablet(s) PO QAM 09/10/2015 12/02/2015 Inactive Topamax 100 mg tablet RxNorm: 522323 TAKE ONE TABLET BY MOUTH EVERY NIGHT AT BEDTIME 09/02/2015 11/24/2015 Inactive Synthroid 112 mcg tablet RxNorm: 739755 TAKE ONE TABLET BY MOUT H DAILY 09/02/2015 11/25/2015 Inactive methocarbamol 750 mg tablet RxNorm: 591333 2 Tablet(s) PO TID as needed for muscle spasm 08/15/2015 01/09/2016 Inactive Wellbutrin XL 150 mg 24 hr tablet, extended release RxNorm: 722728 TAKE ONE TABLET BY MOUTH EVERY MORNING 08/13/2015 08/13/2015 Inactive gabapentin 600 mg tablet RxNorm: 861734 1 Tablet(s) PO BID 08/13/20 15 02/08/2016 Inactive Wellbutrin XL 300 mg 24 hr tablet, extended release RxNorm: 496311 1 Tablet(s) PO QAM 08/06/2015 09/09/2015 Inactive Wellbutrin XL 150 mg 24 hr tablet, extended release RxNorm: 096054 1 Tablet(s) PO QAM 07/18/2015 08/05/2015 Inactive prednisone 20 mg tablet RxNorm: 170272 1 Tablet(s) PO BID 07/18/2015 07/22/2015 Inactive doxycycline hyclate 100 mg tablet,delayed release RxNorm: 43 4018 1 Tablet(s) PO BID 07/18/2015 07/27/2015 Inactive pravastatin 40 mg tablet RxNorm: 339513 1 Tablet(s) PO QD NEEDS FASTING LAB 07/15/2015 07/14/2015 Inactive pravastatin 40 mg tablet RxNorm: 777110 1 Tablet(s) PO QD NEEDS FASTING LAB 07/15/2015 01/25/2018 Inactive Ventolin HFA 90 mcg/actuation aerosol inhaler RxNorm: 922468 2 Puff(s) INH Q4H 07/08/2015 07/07/2015 Inactive prn Premarin 0.45 mg tablet RxNorm: 946585 1 Tablet(s) PO QD 07/01/2015 0 12/22/2015 Inactive pravastatin 40 mg tablet RxNorm: 702687 1 Tablet(s) PO QD NEEDS FASTING LAB 06/14/2015 07/15/2015 Inactive Ventolin HFA 90 mcg/actuation aerosol inhaler RxNorm: 6905921 2 Puff(s) INH Q4H 06/06/2015 07/08/2015 Inactive prn albuterol sulfate 2.5 mg/3 mL (0.083 %) solution for n ebulization RxNorm: 849955 1 Unit Dose INH QID 05/30/2015 No Stop Date Active Duragesic 100 mcg/hr transdermal patch RxNorm: 823743 2 Application TD Q48H for pain 04/29/2015 05/28/2015 Inactive gabapentin 600 mg tablet RxNorm: 610327 1 Tablet(s) PO BID 04/11/20 15 08/13/2015 Inactive Onglyza 5 mg tablet RxNorm: 884570 1 Tablet(s) PO QD for blood suga r 04/10/2015 04/15/2015 Inactive [Brand Copay Card: RxBIN:[id number] PCN:CRISTIANA RxGRP:[id number] ID#:[id number]] methocarbamol 750 mg tablet RxNorm: 251374 2 Tablet(s) PO TID as needed for muscle spasm 03/28/2015 08/15/2015 Inactive pravastatin 40 mg tablet RxNorm: 343228 1 Tablet(s) PO QD 03/19/2015 03/18/2015 Inactive pravastatin 40 mg tablet RxNorm: 774064 1 Tablet(s) PO QD 03/19/2015 06/14/2015 Inactive lactulose 10 gram/15 mL oral solution RxNorm: 470372 [address]s) PO QD 03/07/2015 01/09/2016 Inactive TAKE 1 TABLESPOON BY MOUTH ONCE DAILY oxycodone 20 mg tablet RxNorm: 0479633 1 Tablet(s) PO QID as nee ded for pain 03/05/2015 07/08/2015 Inactive Topamax 100 mg tablet RxNorm: 115423 1 Tablet(s) PO QHS TAKE ONE TABLET BY MOUTH AT BEDTIME 02/25/2015 02/12/2019 Inactive metformin ER 500 mg tablet,extended release 24 hr RxNorm: 86 0975 1 Tablet(s) PO QD 02/11/2015 03/04/2015 Inactive take one tablet by mouth every day Daliresp 500 mcg tablet RxNorm: 9631703 1 Tablet(s) PO QD 02/11/2015 08/09/2015 Inactive Endocet 10 mg-325 mg tablet RxNorm: 8363943 1 Tablet(s) PO Q4H as needed for pain 01/23/2015 01/23/2015 Inactive gabapentin 600 mg tablet RxNorm: 215463 1 Tablet(s) PO BID 01/23/20 15 04/11/2015 Inactive methocarbamol 750 mg tablet RxNorm: 275790 2 Tablet(s) PO TID as needed for muscle spasm 01/15/2015 02/13/2015 Inactive fluoxetine 40 mg capsule RxNorm: 059898 1 Capsule(s) PO QD 01/14/20 15 12/23/2015 Inactive TAKE ONE CAPSULE BY MOUTH EV JANKI MORNING fluoxetine 20 mg capsule RxNorm: 640863 1 Capsule(s) PO QD 01/14/20 15 12/23/2015 Inactive Premarin 0.45 mg tablet RxNorm: 862232 1 Tablet(s) PO QD 01/02/2015 0 07/01/2015 Inactive Endocet 10 mg-325 mg tablet RxNorm: 8770048 1-2 Tablet(s) PO Q4H 02/12/2019 Inactive PRN PAIN Duragesic 100 mcg/hr transdermal patch RxNorm: 459392 2 Application TD Q48H for pain 12/25/2014 01/23/2015 Inactive Topamax 100 mg tablet RxNorm: 464450 1 Tablet(s) PO QHS TAKE ONE TABLET BY MOUTH AT BEDTIME 12/25/2014 02/24/2015 Inactive Tudorza Pressair 400 mcg/actuation breath activated RxNorm: 0615603 1 BID INHALE ONE PUFF INTO LUNGS TWO TIMES A DAY 12/17/2014 05/15/2015 Inactive Endocet 10 mg-325 mg tablet RxNorm: 0302295 1-2 Tablet(s) PO Q4H 12/19/2014 Inactive PRN PAIN Duragesic 100 mcg/hr transdermal patch RxNorm: 563530 2 Application TD Q48H for pain 11/20/2014 12/24/2014 Inactive Melinta Ultra Test strips RxNorm: TEST BLOOD SUGAR ONCE DAILY 250.00 11/16/2014 01/08/2016 Inactive omeprazole 40 mg capsule,delayed release RxNorm: 942732 1 Capsu le(s) PO QD 11/13/2014 11/12/2015 Inactive metformin ER 500 mg tablet,extended release 24 hr RxNorm: 86 0975 1 Tablet(s) PO QD 11/12/2014 02/11/2015 Inactive take one tablet by mouth every day Symbicort 160 mcg-4.5 mcg/actuation HFA aerosol inhaler RxNo rm: 2685406 2 Puff(s) INH BID 11/12/2014 03/11/2015 Inactive INHALE 2 PUFFS O RALLY TWO TIMES A DAY gabapentin 800 mg tablet RxNorm: 547889 1 Tablet(s) PO QD TAKE ONE TABLET BY MOUTH ONCE A DAY 10/22/2014 01/01/2015 Inactive Endocet 10 mg-325 mg tablet RxNorm: 8564306 1-2 Tablet(s) PO Q4H 11/15/2014 Inactive PRN PAIN Duragesic 100 mcg/hr transdermal patch RxNorm: 995079 2 Application TD Q48H for pain 10/17/2014 11/19/2014 Inactive gabapentin 800 mg tablet RxNorm: 842877 1 Tablet(s) PO QD TAKE ONE TABLET BY MOUTH ONCE A DAY 10/04/2014 10/21/2014 Inactive Premarin 0.9 mg tablet RxNorm: 883046 1 Tablet(s) PO QD TAKE ONE TABLET BY MOUTH ONCE A DAY 10/04/2014 01/01/2015 Inactive Spiriva with HandiHaler 18 mcg & inhalation capsules RxNorm: 050869 1 Capsule(s) INH QD 10/03/2014 04/30/2015 Inactive Levaquin 500 mg tablet RxNorm: 077498 1 Tablet(s) PO QD 10/03/2014 Inactive prednisone 20 mg tablet RxNorm: 782893 1 Tablet(s) PO QD 10/03/2014 1 12/09/2013 Inactive Duragesic 100 mcg/hr transdermal patch RxNorm: 203142 2 Application TD Q48H for pain 09/18/2014 10/16/2014 Inactive Endocet 10 mg-325 mg tablet RxNorm: 9232553 1-2 Tablet(s) PO Q4H 10/16/2014 Inactive PRN PAIN Synthroid 112 mcg tablet RxNorm: 128265 1 Tablet(s) QD 09/10/2014 Inactive Synthroid 112 mcg tablet RxNorm: 877719 TAKE ONE TABLET BY MOUTH ONE TIME A DAY. NEEDS LABS 09/10/2014 02/06/2015 Inactive omeprazole 40 mg capsule,delayed release RxNorm: 073568 1 Capsu le(s) PO QD 09/03/2014 11/13/2014 Inactive omeprazole 40 mg capsule,delayed release RxNorm: 248005 1 Capsu le(s) PO QD 09/03/2014 09/02/2014 Inactive Spiriva with HandiHaler 18 mcg & inhalation capsules RxNorm: 127902 1 Capsule(s) INH QD 08/27/2014 10/02/2014 Inactive gabapentin 600 mg tablet RxNorm: 973713 1 Tablet(s) PO BID 08/27/20 14 10/22/2014 Inactive Endocet 10 mg-325 mg tablet RxNorm: 2588086 1-2 Tablet(s) PO Q4H 09/17/2014 Inactive PRN PAIN fentanyl 100 mcg/hr transdermal patch RxNorm: 825178 1 Unit Dos e TD QD 08/21/2014 09/19/2014 Inactive Daliresp 500 mcg tablet RxNorm: 1654239 1 Tablet(s) PO QD 08/13/2014 02/11/2015 Inactive Synthroid 112 mcg tablet RxNorm: 265916 TAKE ONE TABLET BY MOUTH ONE TIME A DAY. NEEDS LABS 08/10/2014 09/10/2014 Inactive Endocet 10 mg-325 mg tablet RxNorm: 0929129 1-2 Tablet(s) PO Q4H 08/17/2014 Inactive PRN PAIN Duragesic 100 mcg/hr transdermal patch RxNorm: 406922 2 Application TD Q48H for pain 07/19/2014 09/17/2014 Inactive fluoxetine 40 mg capsule RxNorm: 915880 1 Capsule(s) PO QD 07/17/20 14 01/14/2015 Inactive TAKE ONE CAPSULE BY MOUTH EV JANKI MORNING fluoxetine 20 mg capsule RxNorm: 478081 1 Capsule(s) PO QD 07/17/20 14 01/14/2015 Inactive Spiriva with HandiHaler 18 mcg & inhalation capsules RxNorm: 197942 1 Capsule(s) INH QD 07/17/2014 08/26/2014 Inactive INHALE CONTENTS OF 1 CAPSULE(S) WITH HANDIHALER ONCE DAILY Zofran 4 mg tablet RxNorm: 839217 1 Tablet(s) PO Q4H prn nausea 07/25/2014 Inactive Synthroid 112 mcg tablet RxNorm: 636200 1 Tablet(s) PO QD 07/09/2014 07/09/2014 Inactive methocarbamol 750 mg tablet RxNorm: 180957 2 Tablet(s) PO TID as needed for muscle spasm 07/09/2014 09/06/2014 Inactive Synthroid 112 mcg tablet RxNorm: 292959 1 Tablet(s) PO QD - nee d labs 07/09/2014 08/07/2014 Inactive Medrol (Aníbal) 4 mg tablets in a dose pack RxNorm: 767211 6 Tablet(s) PO QD --then as directed 07/03/2014 07/08/2014 Inactive Tudorza Pressair 400 mcg/actuation breath activated RxNorm: 2716759 1 Puff(s) INH BID 07/03/2014 12/17/2014 Inactive cefdinir 300 mg capsule RxNorm: 673394 1 Capsule(s) PO BID 07/03/20 14 07/12/2014 Inactive Topamax 100 mg tablet RxNorm: 780255 Tablet(s) TAKE ONE TABLET BY MOUTH AT BEDTIME 07/02/2014 02/25/2015 Inactive Duragesic 100 mcg/hr transdermal patch RxNorm: 844267 2 Application TD Q48H for pain 06/25/2014 07/18/2014 Inactive Endocet 10 mg-325 mg tablet RxNorm: 2944603 1-2 Tablet(s) PO Q4H 07/18/2014 Inactive PRN PAIN metformin ER 500 mg tablet,extended release 24 hr RxNorm: 86 0975 1 Tablet(s) PO QD Needs labs 06/18/2014 07/01/2014 Inactive take one tablet by mouth every day Duragesic 100 mcg/hr transdermal patch RxNorm: 460014 2 Application TD Q48H for pain 05/22/2014 06/24/2014 Inactive Synthroid 112 mcg tablet RxNorm: 461284 1 Tablet(s) PO QD 05/22/2014 07/09/2014 Inactive Endocet 10 mg-325 mg tablet RxNorm: 1358444 1-2 Tablet(s) PO Q4H 06/20/2014 Inactive PRN PAIN Endocet 10 mg-325 mg tablet RxNorm: 5076672 1-2 Tablet(s) PO Q4H 05/21/2014 Inactive PRN PAIN Duragesic 100 mcg/hr transdermal patch RxNorm: 007357 2 Application TD Q48H for pain 04/25/2014 05/21/2014 Inactive Daliresp 500 mcg tablet RxNorm: 6285377 1 Tablet(s) PO QD 04/24/2014 08/13/2014 Inactive Symbicort 160 mcg-4.5 mcg/actuation HFA aerosol inhaler RxNo rm: 2386075 2 Puff(s) INH BID 04/24/2014 08/21/2014 Inactive INHALE 2 PUFFS O RALLY TWO TIMES A DAY metformin ER 500 mg tablet,extended release 24 hr RxNorm: 86 0975 1 Tablet(s) PO QD 04/24/2014 11/12/2014 Inactive TAKE ONE TABLET BY MOUTH EVERY DAY [AttnRPh:Saving Apply/Adjudicate RxGRP:LDMGRP RxBIN:[id number] RxPCN:2012 PCode:01 ID#:[id number]] Symbicort 160 mcg-4.5 mcg/actuation HFA aerosol inhaler RxNo rm: [id number] 2 Puff(s) INH BID 04/24/2014 11/12/2014 Inactive INHALE 2 PUFFS O RALLY TWO TIMES A DAY Premarin 0.9 mg tablet RxNorm: 123395 1 Tablet(s) PO QD 04/24/2014 Inactive TAKE ONE TABLET BY MOUTH EVERY DAY metformin ER 500 mg tablet,extended release 24 hr RxNorm: 86 0975 1 Tablet(s) PO QD Needs labs 04/24/2014 06/18/2014 Inactive TAKE ONE TABLET BY MOUTH EVERY DAY [AttnRPh:Saving Apply/Adjudicate RxGRP:LDMGRP RxBIN:[id number] RxPCN:2012 PCode:01 ID#:[id number]] gabapentin 800 mg tablet RxNorm: 627374 1 Tablet(s) PO QD 04/24/2014 10/04/2014 Inactive TAKE ONE TABLET BY MOUTH EVERY DAY Topamax 100 mg tablet RxNorm: 014199 1 Tablet(s) PO QHS 04/17/2014 Inactive Topamax 100 mg tablet RxNorm: 422999 TAKE ONE TABLET BY MOUTH A T BEDTIME 04/17/2014 07/01/2014 Inactive Tudorza Pressair 400 mcg/actuation breath activated RxNorm: 1661984 1 Puff(s) INH BID 04/11/2014 07/02/2014 Inactive Duragesic 100 mcg/hr transdermal patch RxNorm: 006962 2 Application TD Q48H for pain 03/27/2014 04/24/2014 Inactive Endocet 10 mg-325 mg tablet RxNorm: 4820953 1-2 Tablet(s) PO Q4H 04/24/2014 Inactive PRN PAIN Robaxin 750 mg tablet RxNorm: 648836 2 Tablet(s) PO TID as need ed for spasm 02/23/2014 03/28/2015 Inactive Duragesic 100 mcg/hr transdermal patch RxNorm: 960594 2 Application TD Q48H for pain 02/23/2014 No Stop Date Active Endocet 10 mg-325 mg tablet RxNorm: 5947963 1-2 Tablet(s) PO Q4H 03/23/2014 Inactive PRN PAIN Synthroid 112 mcg tablet RxNorm: 927490 1 Tablet(s) PO QD TAKE ONE TABLET BY MOUTH EVERY DAY 02/15/2014 05/22/2014 Inactive Zithromax 500 mg tablet RxNorm: 475701 1 Tablet(s) PO QD 01/30/2014 0 02/05/2014 Inactive Diflucan 100 mg tablet RxNorm: 837591 1 Tablet(s) PO QD 01/30/2014 Inactive prednisone 20 mg tablet RxNorm: 497653 1 Tablet(s) PO BID 01/30/2014 02/05/2014 Inactive fluoxetine 40 mg capsule RxNorm: 264255 1 Capsule(s) PO QD 01/23/20 14 07/16/2014 Inactive TAKE ONE CAPSULE BY MOUTH EV JANKI MORNING fluoxetine 40 mg capsule RxNorm: 524738 1 Capsule(s) PO QD 01/23/20 14 07/17/2014 Inactive TAKE ONE CAPSULE BY MOUTH EV JANKI MORNING cefdinir 300 mg capsule RxNorm: 187697 1 Capsule(s) PO BID 01/16/20 14 01/29/2014 Inactive Zithromax 500 mg tablet RxNorm: 571856 1 Tablet(s) PO QD 01/16/2014 0 01/22/2014 Inactive prednisone 20 mg tablet RxNorm: 351768 1 Tablet(s) PO BID 01/16/2014 01/22/2014 Inactive Spiriva with HandiHaler 18 mcg and inhalation capsules RxNor m: 677774 1 Capsule(s) INH QD 12/18/2013 07/17/2014 Inactive INHALE CONTENT S OF 1 CAPSULE(S) WITH HANDIHALER ONCE DAILY fluoxetine 20 mg capsule RxNorm: 834918 1 Capsule(s) PO QD 12/18/19 14 06/15/2014 Inactive Spiriva with HandiHaler 18 mcg & inhalation capsules RxNorm: 709178 1 Capsule(s) INH QD 12/18/2013 06/15/2014 Inactive INHALE CONTENTS OF 1 CAPSULE(S) WITH HANDIHALER ONCE DAILY fluoxetine 20 mg capsule RxNorm: 104947 1 Capsule(s) PO QD 12/18/19 14 07/17/2014 Inactive cefdinir 300 mg capsule RxNorm: 528807 2 Capsule(s) PO QD 12/12/2013 12/21/2013 Inactive Duragesic 100 mcg/hr transdermal patch RxNorm: 828585 2 Application TD Q48H for pain 12/08/2013 12/07/2013 Inactive Topamax 100 mg tablet RxNorm: 316282 1 Tablet(s) PO QHS 12/04/2013 Inactive Endocet 10 mg-325 mg tablet RxNorm: 6363702 1-2 Tablet(s) PO Q4H 12/26/2013 Inactive PRN PAIN Robaxin 750 mg tablet RxNorm: 278866 2 Tablet(s) PO TID as need ed for spasm 11/07/2013 01/05/2014 Inactive gabapentin 800 mg tablet RxNorm: 520325 1 Tablet(s) PO QD 10/16/2013 04/24/2014 Inactive TAKE ONE TABLET BY MOUTH EVERY DAY Symbicort 160 mcg-4.5 mcg/actuation HFA aerosol inhaler RxNo rm: 4111262 2 Puff(s) INH BID 10/16/2013 04/24/2014 Inactive INHALE 2 PUFFS O RALLY TWO TIMES A DAY Premarin 0.9 mg tablet RxNorm: 177077 1 Tablet(s) PO QD 10/16/2013 Inactive TAKE ONE TABLET BY MOUTH EVERY DAY metformin ER 500 mg tablet,extended release 24 hr RxNorm: 86 0975 1 Tablet(s) PO QD 10/16/2013 04/24/2014 Inactive TAKE ONE TABLET BY MOUTH EVERY DAY Daliresp 500 mcg tablet RxNorm: 7323786 1 Tablet(s) PO QD 10/16/2013 04/24/2014 Inactive Robaxin 750 mg tablet RxNorm: 438977 2 Tablet(s) PO TID as need ed for spasm 10/10/2013 11/06/2013 Inactive Duragesic 100 mcg/hr transdermal patch RxNorm: 897451 2 Application TD Q48H for pain 10/09/2013 No Stop Date Active Soma 350 mg tablet RxNorm: 156172 1 Tablet(s) PO TID 09/27/201310/09 Inactive TAKE ONE TABLET BY MOUTH THREE TIMES A D AY lactulose 10 gram/15 mL oral solution RxNorm: 998713 [address](s) PO QD 09/13/2013 03/07/2015 Inactive TAKE 1 TABLESPOON BY MOUTH ONCE DAILY Duragesic 100 mcg/hr transdermal patch RxNorm: 111662 2 Application TD Q48H for pain 09/06/2013 No Stop Date Active Endocet 10 mg-325 mg tablet RxNorm: 5269221 1-2 Tablet(s) PO Q4H 09/27/2013 Inactive PRN PAIN lancets 28 gauge RxNorm: Miscellaneous As needed for blo od glucose sticks 08/24/2013 No Stop Date Active 16.2 mg-0.1037 mg-0.0194 mg tablet RxNorm: 3407123 Tablet(s) PO PRN for gas and cramping 08/24/2013 01/19/2017 Inactive TAKE TWO TABLET S BY MOUTH THREE TIMES A DAY NEEDED FOR GAS AND CRAMPING Topamax 100 mg tablet RxNorm: 871572 1 Tablet(s) PO QHS 07/31/2013 Inactive Diflucan 100 mg tablet RxNorm: 444878 1 Tablet(s) PO QD 07/27/2013 Inactive cefdinir 300 mg capsule RxNorm: 146315 1 Capsule(s) PO BID 07/26/20 13 08/08/2013 Inactive Daliresp 500 mcg tablet RxNorm: 0342626 1 Tablet(s) PO QD 07/25/2013 10/15/2013 Inactive fluoxetine 40 mg capsule RxNorm: 150318 1 Capsule(s) PO QD 07/25/20 13 01/22/2014 Inactive TAKE ONE CAPSULE BY MOUTH EV JANIK MORNING Senokot-S 8.6 mg-50 mg tablet RxNorm: 7570952 1 Tablet(s) PO BID 10/25/2013 Inactive doxycycline hyclate 100 mg capsule RxNorm: 1597976 1 Capsule(s) PO BID 06/28/2013 07/07/2013 Inactive prednisone 20 mg tablet RxNorm: 489264 1 Tablet(s) PO BID 06/28/2013 07/04/2013 Inactive Zofran 4 mg tablet RxNorm: 211947 1 Tablet(s) PO Q4H prn nausea 03/201307/05/2013 Inactive Spiriva with HandiHaler 18 mcg & inhalation capsules RxNorm: 188001 1 Capsule(s) INH QD 06/26/2013 12/18/2013 Inactive INHALE CONTENTS OF 1 CAPSULE(S) WITH HANDIHALER ONCE DAILY Synthroid 112 mcg tablet RxNorm: 665488 1 Tablet(s) PO QD TAKE ONE TABLET BY MOUTH EVERY DAY 06/19/2013 02/15/2014 Inactive fluoxetine 20 mg capsule RxNorm: 226059 1 Capsule(s) PO QD 06/19/20 13 12/18/2013 Inactive Ventolin HFA 90 mcg/actuation Aerosol Inhaler RxNorm: 1159318 2 Puff(s) INH Q4H 06/05/2013 No Stop Date Active prn Soma 350 mg tablet RxNorm: 448292 1 Tablet(s) PO TID 06/05/201307/04 Inactive TAKE ONE TABLET BY MOUTH THREE TIMES A D AY prednisone 20 mg tablet RxNorm: 661999 1 Tablet(s) PO QD 05/31/2013 0 06/06/2013 Inactive Topamax 100 mg tablet RxNorm: 635220 1 Tablet(s) PO QHS 05/22/2013 Inactive Levaquin 500 mg tablet RxNorm: 987851 1 Tablet(s) PO QD 05/03/2013 Inactive Diflucan 100 mg tablet RxNorm: 832373 1 Tablet(s) PO QD 05/03/2013 Inactive Daliresp 500 mcg tablet RxNorm: 6771962 1 Tablet(s) PO QD 05/01/2013 07/24/2013 Inactive Daliresp 500 mcg tablet RxNorm: 4850550 1 Tablet(s) PO QD 05/01/2013 04/30/2013 Inactive gabapentin 800 mg tablet RxNorm: 950646 1 Tablet(s) PO QD 04/10/2013 10/06/2013 Inactive TAKE ONE TABLET BY MOUTH EVERY DAY metformin ER 500 mg tablet,extended release 24 hr RxNorm: 86 0977 1 Tablet(s) PO QD 04/10/2013 10/06/2013 Inactive TAKE ONE TABLET BY MOUTH EVERY DAY Premarin 0.9 mg tablet RxNorm: 820678 1 Tablet(s) PO QD 04/10/2013 Inactive TAKE ONE TABLET BY MOUTH EVERY DAY Symbicort 160 mcg-4.5 mcg/actuation HFA aerosol inhaler RxNo rm: 0187604 2 Puff(s) INH BID 04/10/2013 10/06/2013 Inactive INHALE 2 PUFFS O RALLY TWO TIMES A DAY Synthroid 112 mcg tablet RxNorm: 129307 1 Tablet(s) PO QD TAKE ONE TABLET BY MOUTH EVERY DAY 04/10/2013 06/18/2013 Inactive Ventolin HFA 90 mcg/actuation Aerosol Inhaler RxNorm: 991127 2 Puff(s) INH Q4H 04/10/2013 No Stop Date Active prn fentanyl 100 mcg/hr transdermal patch RxNorm: 673589 1 Unit Dos e TD QD 04/03/2013 05/02/2013 Inactive Endocet 10 mg-325 mg tablet RxNorm: 3002696 1-2 Tablet(s) PO Q4H 05/02/2013 Inactive PRN PAIN Topamax 100 mg tablet RxNorm: 529246 1 Tablet(s) PO QHS 03/13/2013 Inactive Reglan 10 mg tablet RxNorm: 419137 1 Tablet(s) PO QID b efore meals and at bedtime 03/13/2013 04/09/2015 Inactive fluoxetine 20 mg capsule RxNorm: 469652 1 Capsule(s) PO QD 02/28/20 13 05/27/2013 Inactive Ventolin HFA 90 mcg/actuation Aerosol Inhaler RxNorm: 116359 2 Puff(s) INH Q4H 02/13/2013 No Stop Date Active prn fluoxetine 40 mg capsule RxNorm: 238968 1 Capsule(s) PO QD 01/31/20 13 07/24/2013 Inactive TAKE ONE CAPSULE BY MOUTH EV JANKI MORNING Soma 350 mg tablet RxNorm: 970407 1 Tablet(s) PO TID 01/20/201302/18 Inactive TAKE ONE TABLET BY MOUTH THREE TIMES A D AY Endocet 10 mg-325 mg tablet RxNorm: 1643012 1-2 Tablet(s) PO Q4H 02/06/2013 Inactive PRN PAIN MS Contin 200 mg tablet,extended release RxNorm: 571749 1 Table t(s) PO BID 01/18/2013 02/06/2013 Inactive Ventolin HFA 90 mcg/actuation Aerosol Inhaler RxNorm: 635985 2 Puff(s) INH Q4H 01/04/2013 No Stop Date Active prn Spiriva with HandiHaler 18 mcg & inhalation capsules RxNorm: 014394 1 Capsule(s) INH QD 12/29/2012 06/25/2013 Inactive INHALE CONTENTS OF 1 CAPSULE(S) WITH HANDIHALER ONCE DAILY Spiriva with HandiHaler 18 mcg & inhalation capsules RxNorm: 296740 1 Capsule(s) INH QD 12/26/2012 12/28/2012 Inactive INHALE CONTENTS OF 1 CAPSULE(S) WITH HANDIHALER ONCE DAILY Synthroid 112 mcg tablet RxNorm: 826400 Tablet(s) PO TA KE ONE TABLET BY MOUTH EVERY DAY 12/26/2012 04/09/2013 Inactive Endocet 10 mg-325 mg tablet RxNorm: 7797134 1-2 Tablet(s) PO Q4H 01/17/2013 Inactive PRN PAIN MS Contin 200 mg tablet,extended release RxNorm: 095628 1 Table t(s) PO BID 12/21/2012 01/17/2013 Inactive fluoxetine 20 mg capsule RxNorm: 520939 1 Capsule(s) PO QD 12/06/19 13 02/26/2013 Inactive Synthroid 112 mcg tablet RxNorm: 755130 1 Tablet(s) PO QD 12/06/2012 02/12/2019 Inactive TAKE ONE TABLET BY MOUTH EVERY DAY Ventolin HFA 90 mcg/actuation Aerosol Inhaler RxNorm: 028986 2 Puff(s) INH Q4H 12/06/2012 No Stop Date Active prn Reglan 10 mg tablet RxNorm: 359459 1 Tablet(s) PO QID b efore meals and at bedtime 11/24/2012 03/12/2013 Inactive Topamax 100 mg tablet RxNorm: 400248 1 Tablet(s) PO QHS 11/16/2012 Inactive Ventolin HFA 90 mcg/actuation Aerosol Inhaler RxNorm: 024094 2 Puff(s) INH Q4H 11/09/2012 No Stop Date Active prn gabapentin 800 mg tablet RxNorm: 345250 1 Tablet(s) PO QD 10/27/2012 04/09/2013 Inactive TAKE ONE TABLET BY MOUTH EVERY DAY metformin ER 500 mg tablet,extended release 24 hr RxNorm: 86 0977 1 Tablet(s) PO QD 10/27/2012 04/09/2013 Inactive TAKE ONE TABLET BY MOUTH EVERY DAY Symbicort 160 mcg-4.5 mcg/actuation HFA Aerosol Inhaler RxNo rm: 1912246 2 Puff(s) INH BID 10/27/2012 04/09/2013 Inactive INHALE 2 PUFFS O RALLY TWO TIMES A DAY Premarin 0.9 mg tablet RxNorm: 123471 1 Tablet(s) PO QD 10/27/2012 Inactive TAKE ONE TABLET BY MOUTH EVERY DAY Endocet 10 mg-325 mg tablet RxNorm: 2251147 1-2 Tablet(s) PO Q4H 11/24/2012 Inactive PRN PAIN MS Contin 200 mg tablet,extended release RxNorm: 521735 1 Table t(s) PO BID 10/26/2012 11/24/2012 Inactive Soma 350 mg tablet RxNorm: 500732 1 Tablet(s) PO TID 10/04/201211/02 Inactive TAKE ONE TABLET BY MOUTH THREE TIMES A D AY Ventolin HFA 90 mcg/actuation Aerosol Inhaler RxNorm: 528131 2 Puff(s) INH Q4H 10/03/2012 No Stop Date Active prn Daliresp 500 mcg tablet RxNorm: 5894478 1 Tablet(s) PO QD 09/28/2012 09/27/2012 Inactive Daliresp 500 mcg tablet RxNorm: 1318309 1 Tablet(s) PO QD 09/28/2012 04/25/2013 Inactive fluoxetine 20 mg capsule RxNorm: 279883 1 Capsule(s) PO QD 09/05/2012/06/2012 Inactive Topamax 50 mg tablet RxNorm: 301164 Tablet(s) PO for 1w k then 1 po q HS for 1wk then 2 po q HS 08/29/2012 09/27/2012 Inactive TAKE 1/2 TABLET BY MOUTH AT BEDTIME FOR 1 WEEK, THEN 1 TABLET AT BEDTIME FOR 1 WEEK, THEN 2 TABLETS AT BEDTIME Topamax 100 mg tablet RxNorm: 529812 1 Tablet(s) PO QHS 08/29/2012 Inactive Ventolin HFA 90 mcg/actuation Aerosol Inhaler RxNorm: 497255 2 Puff(s) INH Q4H 08/19/2012 No Stop Date Active prn Ventolin HFA 90 mcg/actuation Aerosol Inhaler RxNorm: 943896 2 Puff(s) INH Q4H 08/15/2012 No Stop Date Active prn Synthroid 112 mcg tablet RxNorm: 339930 1 Tablet(s) PO QD 08/10/2012 11/07/2012 Inactive TAKE ONE TABLET BY MOUTH EVERY DAY Synthroid 112 mcg tablet RxNorm: 760832 1 Tablet(s) PO QD 08/01/2012 08/09/2012 Inactive TAKE ONE TABLET BY MOUTH EVERY DAY Reglan 10 mg tablet RxNorm: 437081 1 Tablet(s) PO QID b efore meals and at bedtime 08/01/2012 11/23/2012 Inactive fluoxetine 40 mg capsule RxNorm: 661702 1 Capsule(s) PO QD 08/01/20 12 01/27/2013 Inactive TAKE ONE CAPSULE BY MOUTH EV JANKI MORNING Ventolin HFA 90 mcg/actuation Aerosol Inhaler RxNorm: 684706 2 Puff(s) INH Q4H 08/01/2012 No Stop Date Active prn Soma 350 mg tablet RxNorm: 548420 1 Tablet(s) PO TID 07/20/201208/18 Inactive TAKE ONE TABLET BY MOUTH THREE TIMES A D AY Spiriva with HandiHaler 18 mcg & inhalation capsules RxNorm: 779652 1 Capsule(s) INH 07/01/2012 12/25/2012 Inactive INHALE CONTENTS OF 1 CAPSULE(S) WITH HANDIHALER ONCE DAILY Zithromax 250 mg Tab RxNorm: 043361 2 Tablet(s) PO QD 06/28/201206/22 Inactive MS Contin 200 mg tablet,extended release RxNorm: 842129 1 Table t(s) PO BID 06/28/2012 07/27/2012 Inactive Endocet 10 mg-325 mg tablet RxNorm: 0048889 1-2 Tablet(s) PO Q4H 07/27/2012 Inactive PRN PAIN Topamax 100 mg tablet RxNorm: 475470 1 Tablet(s) PO QHS 06/28/2012 Inactive 16.2 mg-0.1037 mg-0.0194 mg tablet RxNorm: 3485027 Tablet(s) PO PRN for gas and cramping 06/08/2012 08/23/2013 Inactive TAKE TWO TABLET S BY MOUTH THREE TIMES A DAY NEEDED FOR GAS AND CRAMPING Ventolin HFA 90 mcg/actuation Aerosol Inhaler RxNorm: 218736 2 Puff(s) INH Q4H 05/23/2012 No Stop Date Active prn Ventolin HFA 90 mcg/actuation Aerosol Inhaler RxNorm: 976860 2 Puff(s) INH Q4H 05/11/2012 No Stop Date Active prn Synthroid 112 mcg tablet RxNorm: 553969 1 Tablet(s) PO QD 05/09/2012 07/31/2012 Inactive TAKE ONE TABLET BY MOUTH EVERY DAY gabapentin 800 mg tablet RxNorm: 659204 1 Tablet(s) PO QD 05/09/2012 10/26/2012 Inactive TAKE ONE TABLET BY MOUTH EVERY DAY fluoxetine 40 mg capsule RxNorm: 564260 1 Capsule(s) PO QD 05/09/2007/31/2012 Inactive TAKE ONE CAPSULE BY MOUTH EV JANKI MORNING metformin ER 500 mg tablet,extended release 24 hr RxNorm: 86 0977 1 Tablet(s) PO QD 05/09/2012 10/26/2012 Inactive TAKE ONE TABLET BY MOUTH EVERY DAY Premarin 0.9 mg tablet RxNorm: 409914 1 Tablet(s) PO QD 05/09/2012 Inactive TAKE ONE TABLET BY MOUTH EVERY DAY Symbicort 160 mcg-4.5 mcg/actuation HFA Aerosol Inhaler RxNo rm: 1246818 2 Puff(s) INH BID 05/09/2012 10/26/2012 Inactive INHALE 2 PUFFS O RALLY TWO TIMES A DAY Endocet 10 mg-325 mg Tab RxNorm: 9232579 1-2 Tablet(s) PO Q4H 04/2705/26/2012 Inactive PRN PAIN MS Contin 200 mg Tab RxNorm: 877067 1 Tablet(s) PO BID 04/26/201202/2012 Inactive Ventolin HFA 90 mcg/actuation Aerosol Inhaler RxNorm: 032515 2 Puff(s) INH Q4H 04/25/2012 05/10/2012 Inactive prn Soma 350 mg tablet RxNorm: 892275 2 Tablet(s) PO TID 04/19/201207/19 Inactive TAKE ONE TABLET BY MOUTH THREE TIMES A D AY Ventolin HFA 90 mcg/actuation Aerosol Inhaler RxNorm: 939600 2 Puff(s) INH Q4H 04/12/2012 04/24/2012 Inactive prn Reglan 10 mg tablet RxNorm: 117042 1 Tablet(s) PO QID b efore meals and at bedtime 04/11/2012 07/31/2012 Inactive MS Contin 200 mg Tab RxNorm: 304761 1 Tablet(s) PO BID 03/30/201202/2012 Inactive Endocet 10 mg-325 mg Tab RxNorm: 4258583 1-2 Tablet(s) PO Q4H 03/3004/26/2012 Inactive PRN PAIN MS Contin 200 mg Tab RxNorm: 759219 1 Tablet(s) PO BID 03/02/201206/2012 Inactive Endocet 10 mg-325 mg Tab RxNorm: 9869192 1-2 Tablet(s) PO Q4H 03/0203/29/2012 Inactive PRN PAIN Daliresp 500 mcg tablet RxNorm: 4267753 1 Tablet(s) PO QD 03/01/2012 09/28/2012 Inactive MS Contin 200 mg Tab RxNorm: 331244 1 Tablet(s) PO BID 02/02/201208/2012 Inactive Endocet 10 mg-325 mg Tab RxNorm: 6719498 1-2 Tablet(s) PO Q4H 02/0103/01/2012 Inactive PRN PAIN fluoxetine 40 mg capsule RxNorm: 890875 1 Capsule(s) PO QD 02/02/2008/01/2012 Inactive TAKE ONE CAPSULE BY MOUTH EV JANKI MORNING Synthroid 112 mcg Tab RxNorm: 123915 1 Tablet(s) PO QD 01/18/2012 Inactive TAKE ONE TABLET BY MOUTH EVERY DAY lactulose 10 gram/15 mL oral solution RxNorm: 151621 [address]s) PO QD 01/18/2012 No Stop Date Active TAKE 1 TABLESPOON BY MOUTH ONCE DAILY Ventolin HFA 90 mcg/actuation Aerosol Inhaler RxNorm: 600376 2 Puff(s) INH Q4H 01/18/2012 04/11/2012 Inactive prn MS Contin 200 mg Tab RxNorm: 652050 1 Tablet(s) PO BID 01/05/201210/2012 Inactive Endocet 10 mg-325 mg Tab RxNorm: 7163575 1-2 Tablet(s) PO Q4H 01/0502/01/2012 Inactive PRN PAIN ProAir HFA 90 mcg/Actuation Aerosol Inhaler RxNorm: 428735 2 Pu ff(s) INH Q4H 12/21/2011 No Stop Date Active prn for wheezing or shortness of breath Spiriva with HandiHaler 18 mcg & inhalation Caps RxNorm: 580 261 1 Capsule(s) INH 12/21/2011 06/30/2012 Inactive INHALE CONTENTS OF 1 CAPSULE(S) WITH HANDIHALER ONCE DAILY Reglan 10 mg Tab RxNorm: 441322 1 Tablet(s) PO QID before meals and at bedtime 12/21/2011 04/10/2012 Inactive Synthroid 112 mcg Tab RxNorm: 413866 1 Tablet(s) PO QD 12/21/2011 Inactive TAKE ONE TABLET BY MOUTH EVERY DAY Endocet 10 mg-325 mg Tab RxNorm: 7994015 1-2 Tablet(s) PO Q4H 11/2512/24/2011 Inactive PRN PAIN MS Contin 200 mg Tab RxNorm: 449196 1 Tablet(s) PO BID 11/25/201112/2011 Inactive lactulose 10 gram/15 mL Oral Soln RxNorm: 077741 Milliliter(s) PO 1 No Stop Date Active TAKE 1 TABLESPOON BY MOUTH O NCE DAILY lactulose 10 gram/15 mL Oral Soln RxNorm: 219740 Milliliter(s) PO 1 12/12/2010 11/20/2011 Inactive TAKE 1 TABLESPOON BY MOUTH O NCE DAILY Premarin 0.9 mg Tab RxNorm: 093110 1 Tablet(s) PO QD 10/12/201105/08 Inactive TAKE ONE TABLET BY MOUTH EVERY DAY fluoxetine 20 mg capsule RxNorm: 586459 1 Capsule(s) PO QD 10/12/2009/05/2012 Inactive TAKE ONE CAPSULE BY MOUTH EV JANKI DAY Synthroid 112 mcg Tab RxNorm: 170883 1 Tablet(s) PO QD 10/12/2011 Inactive TAKE ONE TABLET BY MOUTH EVERY DAY metformin ER 500 mg 24 hr Tab RxNorm: 066734 1 Tablet(s) PO QD 09/2311/10/2011 Inactive TAKE ONE TABLET BY MOUTH GLYNN RY DAY Synthroid 112 mcg Tab RxNorm: 864065 1 Tablet(s) PO QD 10/12/2011 Inactive TAKE ONE TABLET BY MOUTH EVERY DAY metformin ER 500 mg 24 hr Tab RxNorm: 141274 1 Tablet(s) PO QD 09/2310/11/2011 Inactive TAKE ONE TABLET BY MOUTH GLYNN Prevacid 30 mg Cap RxNorm: 849066 Capsule(s) PO 10/12/2011 01/25/2012 Inactive TAKE ONE CAPSULE BY MOUTH EVERY DAY Symbicort 160 mcg-4.5 mcg/actuation HFA Aerosol Inhaler RxNo rm: 8630269 2 Puff(s) INH BID 10/12/2011 05/08/2012 Inactive INHALE 2 PUFFS O RALLY TWO TIMES A DAY gabapentin 800 mg Tab RxNorm: 050164 1 Tablet(s) PO QD 10/12/2011 Inactive TAKE ONE TABLET BY MOUTH EVERY DAY MS Contin 200 mg Tab RxNorm: 356524 1 Tablet(s) PO BID 09/23/201111/2010 Inactive Endocet 10 mg-325 mg Tab RxNorm: 4305164 1-2 Tablet(s) PO Q4H 09/2310/22/2011 Inactive PRN PAIN Endocet 10 mg-325 mg Tab RxNorm: 8756863 1-2 Tablet(s) PO Q4H 08/2109/19/2011 Inactive PRN PAIN MS Contin 200 mg Tab RxNorm: 896261 1 Tablet(s) PO BID 08/21/2011 Inactive Diflucan 100 mg Tab RxNorm: 561705 1 Tablet(s) PO QD 08/10/201108/16 Inactive cefdinir 300 mg Cap RxNorm: 038053 2 Capsule(s) PO QD 08/10/201107/24 Inactive Reglan 10 mg Tab RxNorm: 389684 1 Tablet(s) PO AC & HS 07/15/2011 Inactive Endocet 10 mg-325 mg Tab RxNorm: 8110943 1-2 Tablet(s) PO Q4H 07/1508/13/2011 Inactive PRN PAIN One Touch Ultra Test strips RxNorm: Miscellaneous BID 06/11/2011 1 01/16/2014 Inactive TEST TWO TIMES A DAY lactulose 10 gram/15 mL Oral Soln RxNorm: 175126 Milliliter(s) PO 0 06/10/2011 10/11/2011 Inactive TAKE 1 TABLESPOON BY MOUTH O NCE DAILY Chantix Continuing Month Aníbal 1 mg Tab RxNorm: 833868 Tablet(s) PO 0 06/10/2011 11/02/2011 Inactive TAKE DIRECTED - PER PACK[employer] GE INSTRUCTIONS fluoxetine 40 mg Cap RxNorm: 182062 Capsule(s) PO 06/10/2011 02/02/20 Inactive TAKE ONE CAPSULE BY MOUTH EVERY MORNING Chantix Continuing Month Aníbal 1 mg Tab RxNorm: 044232 Ta blet(s) PO TAKE DIRECTED - PER PACKAGE INSTRUCTIONS 05/13/2011 06/09/2011 Inactive Soma 350 mg Tab RxNorm: 707546 Tablet(s) PO TAKE ON E TABLET BY MOUTH THREE TIMES A DAY 05/13/2011 04/18/2012 Inactive Chantix Continuing Month Aníbal 1 mg Tab RxNorm: 499699 Ta blet(s) PO as directed per package instructions. 04/22/2011 05/12/2011 Inactive Symbicort 160 mcg-4.5 mcg/Actuation HFA Aerosol Inhaler RxNo rm: 4798448 HFA Aerosol Inhaler INH INHALE 2 PUFFS ORALLY TWO TIMES A DAY 04/13/2011 Inactive Synthroid 112 mcg Tab RxNorm: 645036 Tablet(s) PO TAKE ONE TABLET BY MOUTH EVERY DAY 04/13/2011 10/12/2011 Inactive Premarin 0.9 mg Tab RxNorm: 065658 Tablet(s) PO TAKE ON E TABLET BY MOUTH EVERY DAY 04/13/2011 10/12/2011 Inactive gabapentin 800 mg Tab RxNorm: 629786 Tablet(s) PO TAKE ONE TABLET BY MOUTH EVERY DAY 04/13/2011 10/12/2011 Inactive Prevacid 30 mg Cap RxNorm: 408638 1 Capsule(s) PO QD 04/13/201110/11 Inactive Spiriva with HandiHaler 18 mcg & inhalation Caps RxNorm: 580 261 Capsule(s) INH INHALE CONTENTS OF 1 CAPSULE(S) WITH HANDIHALER ONCE DAILY 04/13/2011 12/21/2011 Inactive metformin ER 500 mg 24 hr Tab RxNorm: 932722 Tablet(s) PO TAKE ONE TABLET BY MOUTH EVERY DAY 04/13/2011 10/12/2011 Inactive Soma 350 mg Tab RxNorm: 195044 1 Tablet(s) PO QID 03/30/2011 02/13/20 19 Inactive fluoxetine 20 mg Cap RxNorm: 060473 Capsule(s) PO TAKE ONE CAPSULE BY MOUTH EVERY DAY 03/25/2011 10/12/2011 Inactive cefdinir 300 mg Cap RxNorm: 165184 2 Capsule(s) PO QD 03/19/201105/2011 Inactive 16.2 mg-0.1037 mg-0.0194 mg Tab RxNorm: 0186109 2 Tablet(s) PO TID PRN for gas and cramping 03/16/2011 07/13/2011 Inactive Soma 350 mg Tab RxNorm: 620676 2 Tablet(s) PO TID 03/16/2011 03/29/20 11 Inactive Chantix Starting Month Aníbal 0.5 mg (11)-1 mg (3x14) Tab s in a Dose Pack RxNorm: 628360 Tablet(s) PO as directed 03/02/2011 No Stop Date Active diazepam 10 mg Tab RxNorm: 338065 1 Tablet(s) PO BID 02/10/201101/19 Inactive Zofran 4 mg tablet RxNorm: 954199 1 Tablet(s) PO Q4H prn nausea 02/16/2011 Inactive Diflucan 100 mg Tab RxNorm: 156736 1 Tablet(s) PO QD 01/18/201101/24 Inactive Premarin 0.625 mg/g Vaginal Cream RxNorm: 582741 VAG In sert 1gm vaginally at bedtime 3 times weekly 01/18/2011 02/12/2019 Inactive loratadine 10 mg Tab RxNorm: 0933912 1 Tablet(s) PO QD 12/17/201003/2012 Inactive Spiriva with HandiHaler 18 mcg & inhalation Caps RxNorm: 580 261 1 Capsule(s) INH QD 12/17/2010 04/12/2011 Inactive Diflucan 100 mg Tab RxNorm: 583551 1 Tablet(s) PO QD 12/17/201012/23 Inactive diazepam 10 mg Tab RxNorm: 016047 1 Tablet(s) PO BID and PRN 201002/12/2019 Inactive One Touch Ultra Test Strips RxNorm: InVt BID Zainab t blood sugar at least twice daily. 11/11/2010 06/11/2011 Inactive fluoxetine 40 mg Cap RxNorm: 104152 1 Capsule(s) PO QAM 11/11/2010 Inactive diazepam 10 mg Tab RxNorm: 364792 1 Tablet(s) PO BID and PRN 200911/12/2010 Inactive Bactrim DS 800 mg-160 mg Tab RxNorm: 947533 1 Tablet(s) PO BID 09/2210/15/2010 Inactive fluoxetine 20 mg Cap RxNorm: 917358 1 Capsule(s) PO QD 10/02/201008/2011 Inactive Bactrim DS 800 mg-160 mg Tab RxNorm: 807557 1 Tablet(s) PO BID 01/201010/03/2010 Inactive Zofran 4 mg Tab RxNorm: 253335 1 Tablet(s) PO Q4H prn nausea 200910/16/2010 Inactive 16.2 mg-0.1037 mg-0.0194 mg Tab RxNorm: 0370113 2 Tablet(s) PO TID PRN for gas and cramping 09/17/2010 10/21/2010 Inactive Gabapentin 800 mg Tab RxNorm: 806605 1 Tablet(s) PO QD 09/16/2010 Inactive ProAir HFA 90 mcg/Actuation Aerosol Inhaler RxNorm: 174202 2 Puff(s) INH Q4H prn shortness of breath 09/15/2010 12/13/2010 Inactive gabapentin 800 mg Tab RxNorm: 686158 1 Tablet(s) PO QD 09/15/2010 Inactive Prevacid 30 mg Cap RxNorm: 662450 1 Capsule(s) PO QD 09/15/201004/12 Inactive loratadine 10 mg Tab RxNorm: 0193016 1 Tablet(s) PO QD 09/15/2010 Inactive Premarin 0.9 mg Tab RxNorm: 056981 1 Tablet(s) PO QD 09/15/201004/12 Inactive Synthroid 112 mcg Tab RxNorm: 226168 1 Tablet(s) PO QD 09/15/2010 Inactive metformin ER 500 mg 24 hr Tab RxNorm: 322583 1 Tablet(s) PO QD 08/2304/12/2011 Inactive Symbicort 160 mcg-4.5 mcg/Actuation Inhalation HFA Aer osol Inhaler RxNorm: 9152922 2 Puff(s) INH BID 09/15/2010 04/12/2011 Inactive diazepam 10 mg Tab RxNorm: 338713 1 Tablet(s) PO BID and PRN 200910/13/2010 Inactive Phentermine 37.5 mg Cap RxNorm: 325583 1 Capsule(s) PO QD 09/02/2010 11/02/2011 Inactive ProAir HFA 90 mcg/Actuation Aerosol Inhaler RxNorm: 672363 2 Puff(s) INH Q4H prn shortness of breath 08/07/2010 No Stop Date Active Premarin 0.9 mg Tab RxNorm: 610047 1 Tablet(s) PO QD 08/07/201009/14 Inactive Loratadine 10 mg Tab RxNorm: 0012574 1 Tablet(s) PO QD 08/07/2010 Inactive Lactulose 10 gram/15 mL Oral Soln RxNorm: 189150 1 Unit Dose PO QD 08/07/2010 02/12/2019 Inactive Zofran 4 mg Tab RxNorm: 493040 1 Tablet(s) PO Q4H prn nausea 2009 No Stop Date Active Gabapentin 800 mg Tab RxNorm: 351801 1 Tablet(s) PO QD 08/07/2010 Inactive Synthroid 112 mcg Tab RxNorm: 639133 1 Tablet(s) PO QD 08/07/2010 Inactive Metformin ER 500 mg 24 hr Tab RxNorm: 220588 1 Tablet(s) PO QD 07/2309/14/2010 Inactive Vitamin D 1,000 unit Tab RxNorm: 695521 1 Tablet(s) PO TID 08/07/2002/12/2019 Inactive Symbicort 160 mcg-4.5 mcg/Actuation Inhalation HFA Aer osol Inhaler RxNorm: 8004463 2 Puff(s) INH BID 08/07/2010 09/14/2010 Inactive Prevacid 30 mg Cap RxNorm: 774151 1 Capsule(s) PO QD 08/07/201009/14 Inactive Metformin ER 500 mg 24 hr Tab RxNorm: 015179 1 Tablet(s) PO QD 06/2308/06/2010 Inactive Vitamin D 1,000 unit Tab RxNorm: 861473 1 Tablet(s) PO TID 07/14/2008/06/2010 Inactive Synthroid 112 mcg Tab RxNorm: 883551 1 Tablet(s) PO QD 07/14/2010 Inactive Lactulose 10 gram/15 mL Oral Soln RxNorm: 589078 1 Unit Dose PO QD 07/14/2010 08/06/2010 Inactive Levaquin 500 mg Tab RxNorm: 333684 1 Tablet(s) PO QD 07/14/201007/27 Inactive Premarin 0.9 mg Tab RxNorm: 031112 1 Tablet(s) PO QD 07/14/201008/06 Inactive ProAir HFA 90 mcg/Actuation Aerosol Inhaler RxNorm: 852115 2 Puff(s) INH Q4H prn shortness of breath 07/14/2010 No Stop Date Active Prevacid 30 mg Cap RxNorm: 859856 1 Capsule(s) PO QD 07/14/201008/06 Inactive Zofran 4 mg Tab RxNorm: 845132 1 Tablet(s) PO Q4H prn nausea 2009 No Stop Date Active Symbicort 160 mcg-4.5 mcg/Actuation Inhalation HFA Aer osol Inhaler RxNorm: 7102443 2 Puff(s) INH BID 07/14/2010 08/06/2010 Inactive Loratadine 10 mg Tab RxNorm: 9100974 1 Tablet(s) PO QD 07/14/2010 Inactive Gabapentin 800 mg Tab RxNorm: 198792 1 Tablet(s) PO QD 07/14/2010 Inactive Metformin ER 500 mg 24 hr Tab RxNorm: 824506 1 Tablet(s) PO 010 07/13/2010 Inactive Diazepam 10 mg Tab RxNorm: 231679 1 Tablet(s) PO BID and PRN 200909/06/2010 Inactive Premarin 0.9 mg Tab RxNorm: 755319 1 Tablet(s) PO QD 06/09/201007/13 Inactive Zofran 4 mg Tab RxNorm: 855785 1 Tablet(s) PO Q4H prn nausea 2009 No Stop Date Active ProAir HFA 90 mcg/Actuation Aerosol Inhaler RxNorm: 556963 2 Puff(s) INH Q4H prn shortness of breath 06/09/2010 No Stop Date Active Gabapentin 800 mg Tab RxNorm: 492006 1 Tablet(s) PO QD 06/09/2010 Inactive Loratadine 10 mg Tab RxNorm: 0180288 1 Tablet(s) PO QD 06/09/2010 Inactive Lactulose 10 gram/15 mL Oral Soln RxNorm: 352058 1 Unit Dose PO QD 06/09/2010 07/13/2010 Inactive Prevacid 30 mg Cap RxNorm: 158408 1 Capsule(s) PO QD 06/09/201007/13 Inactive Synthroid 112 mcg Tab RxNorm: 974093 1 Tablet(s) PO QD 06/09/2010 Inactive Symbicort 160 mcg-4.5 mcg/Actuation Inhalation HFA Aer osol Inhaler RxNorm: 9589019 2 Puff(s) INH BID 06/09/2010 07/13/2010 Inactive Omnicef 300 mg Cap RxNorm: 783575 2 Capsule(s) PO QD 05/07/201005/20 Inactive Metformin 500 mg Tab RxNorm: 360254 1 Tablet(s) PO QD 05/06/201005/22 Inactive ProAir HFA 90 mcg/Actuation Aerosol Inhaler RxNorm: 842443 2 Puff(s) INH Q4H prn shortness of breath 05/06/2010 No Stop Date Active lactulose 10 gram/15 mL Oral Soln RxNorm: 266493 1 Unit Dose PO QD 05/06/2010 06/10/2011 Inactive Loratadine 10 mg Tab RxNorm: 4363064 1 Tablet(s) PO QD 05/06/2010 Inactive Synthroid 112 mcg Tab RxNorm: 591711 1 Tablet(s) PO QD 05/06/2010 Inactive Symbicort 160 mcg-4.5 mcg/Actuation Inhalation HFA Aer osol Inhaler RxNorm: 7954609 2 Puff(s) INH BID 05/06/2010 06/08/2010 Inactive Gabapentin 800 mg Tab RxNorm: 031458 1 Tablet(s) PO QD 05/06/2010 Inactive 16.2 mg-0.1037 mg-0.0194 mg Tab RxNorm: 9621244 2 Tablet(s) PO TID PRN for gas and cramping 05/06/2010 05/12/2010 Inactive Zofran 4 mg Tab RxNorm: 934882 1 Tablet(s) PO Q4H prn nausea 200904/13/2010 Inactive MS Contin 60 mg Tab RxNorm: 648888 3 Tablet(s) PO BID 04/09/201004/22 Inactive Soma 350 mg Tab RxNorm: 361957 2 Tablet(s) PO TID 04/09/2010 05/08/20 10 Inactive Symbicort 160 mcg-4.5 mcg/Actuation Inhalation HFA Aer osol Inhaler RxNorm: 1582166 2 Puff(s) INH BID 04/08/2010 05/05/2010 Inactive Doxycycline 100 mg Cap RxNorm: 8984738 1 Capsule(s) PO BID 04/08/20 10 04/17/2010 Inactive Triamterene-Hydrochlorothiazide 37.5 mg-25 mg Cap RxNorm: 19 8316 1 Capsule(s) PO QAM 04/08/2010 09/04/2010 Inactive fluoxetine 40 mg Cap RxNorm: 290267 1 Capsule(s) PO QAM 04/08/2010 Inactive Morphine SR 120 mg multiphase 24 hr Cap RxNorm: 453234 1 Capsul e(s) PO 03/11/2010 04/07/2010 Inactive Endocet 10 mg-325 mg Tab RxNorm: 1865623 1-2 Tablet(s) PO Q4H [place] N PAIN 03/11/2010 04/09/2010 Inactive Savella 100 mg Tab RxNorm: 689582 1 Tablet(s) PO BID 03/10/201004/09 Inactive Soma 350 mg Tab RxNorm: 206790 1 Tablet(s) PO TID prn spasm 010 04/09/2010 Inactive Savella 100 mg Tab RxNorm: 510882 1 Tablet(s) PO BID 02/03/201004/09 Inactive Aspirin 81 mg Tab RxNorm: 852262 1 Tablet(s) PO QD No Start Date Active Zyrtec 10 mg Tab RxNorm: 2186506 1 Tablet(s) PO QD No Start Date Active One Touch Ultra Test Strips RxNorm: Misc test at least t wice daily. No Start Date Active coenzyme Q10 200 mg capsule RxNorm: 771157 1 Capsule(s) PO QD No Star t Date Active One Touch Ultra Test Strips RxNorm: InVt BID Zainab t blood sugar at least twice daily. No Start Date 11/10/2010 Inactive Gabapentin 800 mg Tab RxNorm: 332966 1 Tablet(s) PO QD No Start Date 05/05/2010 Inactive Abilify 5 mg tablet RxNorm: 545751 1 Tablet(s) PO QD No Start Date Inactive Chantix 1 mg Tab RxNorm: 860441 1 Tablet(s) PO BID No Start Date 10/22 Inactive Ozempic 0.25 mg or 0.5 mg (2 mg/1.5 mL) subcutaneous p en injector RxNorm: 1458266 .25 Milligram(s) SQ QW No Start Date 07/04/2019 Inactive lancets 28 gauge RxNorm: Miscellaneous As needed for blo od glucose sticks No Start Date 08/23/2013 Inactive potassium chloride ER 20 mEq tablet,extended release RxNorm: 408453 2 Tablet(s) PO QD No Start Date 09/26/2018 Inactive Ventolin HFA 90 mcg/actuation Aerosol Inhaler RxNorm: 772356 2 Puff(s) INH Q4H prn No Start Date 01/17/2012 Inactive potassium chloride ER 20 mEq tablet,extended release RxNorm: 712029 2 Tablet(s) PO QD No Start Date 10/19/2018 Inactive Januvia 100 mg tablet RxNorm: 320532 1 Tablet(s) PO QD No Start Date 09/10/2015 Inactive Medrol (Aníbal) 4 mg Tabs in a Dose Pack RxNorm: 090705 Tablet(s) PO N o Start Date 08/09/2011 Inactive as directed Zithromax Z-Aníbal 250 mg Tab RxNorm: 532886 Tablet(s) PO No Start Date 01/25/2012 Inactive as directed vitamin B6-vitamin E-magnesium tablet RxNorm: 1 Tablet(s ) PO QHS with INH No Start Date 03/30/2018 Inactive prednisone 20 mg Tab RxNorm: 041144 1 Tablet(s) PO TID for 1wk then 1 po BID for 1wk No Start Date 01/25/2012 Inactive furosemide 40 mg tablet RxNorm: 879123 1 Tablet(s) PO QAM No Start Date 10/09/2018 Inactive Vitamin D3 1000 units Capsule RxNorm: 1 Capsule(s) PO TID No S tart Date 03/19/2015 Inactive Zofran 4 mg Tab RxNorm: 178490 1 Tablet(s) PO Q4H prn nausea No Sta rt Date 04/13/2010 Inactive Premarin 0.625 mg/g Vaginal Cream RxNorm: 151087 1 Gram (s) VAG QHS 3 times a week No Start Date 09/22/2017 Inactive oxycodone 10 mg tablet RxNorm: 3802887 1-2 Tablet(s) PO QID as n eeded for pain No Start Date 11/04/2015 Inactive Nicoderm CQ 21 mg/24 hr daily Patch RxNorm: 075530 1 Applicatio n TD QD No Start Date 08/05/2015 Inactive Topamax 50 mg tablet RxNorm: 991049 1/2 Tablet(s) PO QH S for 1wk then 1 po q HS for 1wk then 2 po q HS No Start Date 06/27/2012 Inactive Chantix Starting Month Aníbal 0.5 mg (11)-1 mg (3x14) Tab s in a Dose Pack RxNorm: 625367 Tablet(s) PO as directed No Start Date 03/01/2011 Inactive Trulicity 0.75 mg/0.5 mL subcutaneous pen injector RxNorm: 1 954745 Milliliter(s) SQ No Start Date 07/04/2019 Inactive Medrol (Aníbal) 4 mg Tabs in a Dose Pack RxNorm: 554799 Tablet(s) PO N o Start Date 01/25/2012 Inactive as directed Duragesic 100 mcg/hr Transderm Patch RxNorm: 203807 2 A pplication TD Q48H for pain No Start Date 09/05/2013 Inactive Premarin 0.9 mg Tab RxNorm: 575230 1 Tablet(s) PO QD No Start Date Inactive Zithromax Z-Aníbal 250 mg Tab RxNorm: 993637 Tablet(s) PO as direc chinmay No Start Date 01/25/2012 Inactive ondansetron 8 mg disintegrating tablet RxNorm: 443193 1 Tablet(s) PO Q6H as needed No Start Date 10/10/2018 Inactive oxycodone 15 mg tablet RxNorm: 7415707 1 Tablet(s) PO QID as nee ded for pain No Start Date 03/05/2019 Inactive ProAir HFA 90 mcg/Actuation Aerosol Inhaler RxNorm: 635607 2 Puff(s) INH Q4H prn for wheezing or shortness of breath No Start Date 12/21/2011 Inactive pravastatin 40 mg tablet RxNorm: 880106 1/2 Tablet(s) PO QOD No Sta rt Date 04/09/2015 Inactive ipratropium-albuterol 0.5 mg-3 mg(2.5 mg base)/3 mL ne bulization soln RxNorm: 8040465 1 Unit Dose INH Q4H as needed No Start Date 09/09/2016 Inactive furosemide 40 mg tablet RxNorm: 828472 1 Tablet(s) PO QAM as ne eded No Start Date 09/24/2019 Inactive Vitamin D2 oral RxNorm: 4018 oral No Start Date 03/18/2015 Inacti ve pravastatin 40 mg tablet RxNorm: 359765 1/2 Tablet(s) PO QD No Star t Date 04/09/2015 Inactive ondansetron HCl 4 mg tablet RxNorm: 982177 1 Tablet(s) PO Q4H as needed for nausea and vomiting No Start Date 04/07/2016 Inactive furosemide 40 mg tablet RxNorm: 249289 2 Tablet(s) PO QAM No Start Date 09/26/2018 Inactive gabapentin 800 mg tablet RxNorm: 787996 1/2 Tablet(s) PO BID No Sta rt Date 06/21/2017 Inactive gabapentin 800 mg tablet RxNorm: 856060 1/2 Tablet(s) PO BID No Sta rt Date 07/05/2017 Inactive ProAir HFA 90 mcg/Actuation Aerosol Inhaler RxNorm: 286811 2 Puff(s) INH Q4H prn shortness of breath No Start Date 05/05/2010 Inactive scopolamine 1 mg over 3 days transdermal patch RxNorm: 88226 2 1 Application TD behind ear. Take off after three days No Start Date 10/10/2018 Inactive Metformin 500 mg Tab RxNorm: 772469 1 Tablet(s) PO QD No Start Date 0 05/05/2010 Inactive MS Contin 200 mg Tab RxNorm: 240521 1 Tablet(s) PO BID No Start Date 08/20/2011 Inactive Belladonna-Phenobarbital 48 mg tablet,extended release RxNor m: 2 Tablet(s) PO TID No Start Date 06/04/2016 Inactive Synthroid 112 mcg Tab RxNorm: 821773 1 Tablet(s) PO QD No Start Date 05/05/2010 Inactive Zegerid 40 mg-1.1 gram Cap RxNorm: 697055 1 Capsule(s) PO QD No Sta rt Date 01/25/2012 Inactive Premarin 0.625 mg/g Vaginal Cream RxNorm: 714499 VAG In sert 1gm vaginally at bedtime 3 times weekly No Start Date 01/17/2011 Inactive potassium chloride ER 20 mEq tablet,extended release RxNorm: 486261 1 Tablet(s) PO QD No Start Date 04/24/2019 Inactive methocarbamol 750 mg tablet RxNorm: 853710 2 Tablet(s) PO TID as needed for muscle spasm No Start Date 07/08/2014 Inactive Biaxin XL Aníbal 500 mg 24 hr Tab RxNorm: 749991 Tablet(s) PO as d irected No Start Date 04/24/2013 Inactive Vitamin D3 1,000 unit tablet RxNorm: 835277 3 Tablet(s) PO QD No St art Date 06/01/2017 Inactive Morphine SR 120 mg multiphase 24 hr Cap RxNorm: 216564 1 Capsul e(s) PO BID No Start Date 04/09/2010 Inactive Silvadene 1 % topical cream RxNorm: 090419 1 Application TOP BI D to burn area No Start Date 01/31/2017 Inactive Prednisone 20 mg Tab RxNorm: 768805 1 Tablet(s) PO TID for 3days then BID for 4days No Start Date 01/25/2012 Inactive gabapentin 600 mg tablet RxNorm: 715574 1 Tablet(s) PO BID No Start Date 01/21/2015 Inactive topiramate 50 mg tablet RxNorm: 371532 1 Tablet(s) PO QHS No Start Date 03/30/2018 Inactive Januvia 100 mg tablet RxNorm: 012969 1/2 Tablet(s) PO QD No Start D ate 12/25/2015 Inactive Diazepam 10 mg Tab RxNorm: 257703 1 Tablet(s) PO BID and PRN No Sta rt Date 06/08/2010 Inactive Medication Administered No Medication Administered data Immunizations Vaccine Codes Date Status Influenza CVX: 141 09/28/2012 Pneumovax Unknown 09/28/2012 Influenza (Adult) CVX: 141 09/02/2010 Results No Results data Procedures Procedure Codes Date THER/PROPH/DIAG INJ SC/IM CPT-4: 00106 07/10/2019 METHYLPREDNISOLONE INJECTION CPT-4: J2930 07/10/2019 URINALYSIS NONAUTO W/O SCOPE CPT-4: 54065 09/06/2018 URINE CULTURE/ COLONY COUNT CPT-4: 96475 09/06/2018 DRAIN/INJECT JOINT/BURSA CPT-4: 55863 04/29/2017 TRIAMCINOLONE ACET INJ NOS CPT-4: J3301 04/29/2017 DEXAMETHASONE SODIUM PHOS CPT-4: J1100 04/29/2017 INFLUENZA ASSAY W/OPTIC CPT-4: 65002 12/01/2016 RESPIRATORY CULTURE & STAIN CPT-4: 66153 07/09/2016 TB INTRADERMAL TEST CPT-4: 92621 04/21/2016 DRAIN/INJECT JOINT/BURSA CPT-4: 74752 11/07/2013 METHYLPREDNISOLONE 40 MG INJ CPT-4: J1030 11/07/2013 TRIAMCINOLONE ACET INJ NOS CPT-4: J3301 11/07/2013 DRAIN/INJECT JOINT/BURSA CPT-4: 72268 08/08/2013 METHYLPREDNISOLONE 40 MG INJ CPT-4: J1030 08/08/2013 TRIAMCINOLONE ACET INJ NOS CPT-4: J3301 08/08/2013 FLU VACCINE 3 YRS & > IM UP 64 CPT-4: 62868 2 PNEUMOCOCCAL VACC 23 ADITYA IM CPT-4: 30069 09/28/2012 IMMUNIZATION ADMIN CPT-4: 76032 09/28/2012 IMMUNIZATION ADMIN EACH ADD CPT-4: 02728 09/28/2012 FLU VACCINE 3 YRS & > IM UP 64 CPT-4: 64100 0 IMMUNIZATION ADMIN CPT-4: 69463 09/02/2010 METHYLPREDNISOLONE INJECTION CPT-4: J2930 05/07/2010 THER/PROPH/DIAG INJ SC/IM CPT-4: 91811 05/07/2010 Vital Signs Date Vital 11/29/2019 Blood [...] 1: 122/78 Code: 8480-6 BMI: 29.5 Code: 93230-6 Heart Rate 1: 76 bpm Height: 5'4" Respiratory Rate: 20 bpm SpO2: 96% Tempera ture: 37.0 (C) / 98.6 (F) Weight: 172 lbs 01/25/2019 Blood Pressure 1: 132/80 Code: 8480-6 BMI: 29.7 Code: 25290-5 Heart Rate 1: 84 bpm Height: 5'4" Respiratory Rate: 22 bpm SpO2: 98% Tempera ture: 36.9 (C) / 98.4 (F) Weight: 173 lbs 01/03/2019 Blood Pressure 1: 116/70 Code: 8480-6 BMI: 29.5 Code: 29076-2 Heart Rate 1: 92 bpm Height: 5'4" Respiratory Rate: 24 bpm SpO2: 98% Tempera ture: 37.2 (C) / 98.9 (F) Weight: 172 lbs 11/21/2018 Blood Pressure 1: 146/82 Code: 8480-6 BMI: 28.2 Code: 61571-3 Heart Rate 1: 88 bpm Height: 5'4" Respiratory Rate: 22 bpm SpO2: 97% Tempera ture: 36.9 (C) / 98.4 (F) Weight: 164 lbs 10/27/2018 Blood Pressure 1: 122/70 Code: 8480-6 BMI: 27.6 Code: 34526-7 Heart Rate 1: 88 bpm Height: 5'4" Respiratory Rate: 20 bpm SpO2: 96% Tempera ture: 36.8 (C) / 98.3 (F) Weight: 161 lbs 10/18/2018 Blood Pressure 1: 126/70 Code: 8480-6 BMI: 28.3 Code: 79123-2 Heart Rate 1: 76 bpm Height: 5'4" Respiratory Rate: 20 bpm SpO2: 95% Tempera ture: 37.0 (C) / 98.6 (F) Weight: 165 lbs 09/27/2018 Blood Pressure 1: 124/78 Code: 8480-6 BMI: 27.1 Code: 13710-4 Heart Rate 1: 88 bpm Height: 5'4" Respiratory Rate: 20 bpm SpO2: 98% Tempera ture: 36.4 (C) / 97.6 (F) Weight: 158 lbs 09/14/2018 Blood Pressure 1: 140/72 Code: 8480-6 BMI: 26.1 Code: 05294-5 Heart Rate 1: 100 bpm Height: 5'4" Respiratory Rate: 20 bpm SpO2: 97% Tempera ture: 36.9 (C) / 98.4 (F) Weight: 152 lbs 09/06/2018 Blood Pressure 1: 156/82 Code: 8480-6 BMI: 26.3 Code: 20763-9 Heart Rate 1: 100 bpm Height: 5'4" Respiratory Rate: 28 bpm SpO2: 95% Tempera ture: 37.2 (C) / 98.9 (F) Weight: 153 lbs 08/16/2018 Blood Pressure 1: 130/78 Code: 8480-6 Heart Rate 1: 87 bpm Respiratory Rate: 24 bpm SpO2: 94% Temperature: 36.9 (C) / 98.4 (F) We ight: 147 lbs 8 oz 07/07/2018 Blood Pressure 1: 116/78 Code: 8480-6 BMI: 22.7 Code: 12075-6 Heart Rate 1: 88 bpm Height: 5'4" Respiratory Rate: 22 bpm SpO2: 98% Tempera ture: 36.5 (C) / 97.7 (F) Weight: 132 lbs 05/31/2018 Blood Pressure 1: 128/78 Code: 8480-6 BMI: 22.3 Code: 64731-7 Heart Rate 1: 92 bpm Height: 5'4" Respiratory Rate: 26 bpm SpO2: 94% Tempera ture: 36.7 (C) / 98.1 (F) Weight: 130 lbs 03/31/2018 Blood Pressure 1: 136/78 Code: 8480-6 BMI: 21.5 Code: 42570-2 Heart Rate 1: 76 bpm Height: 5'4" Respiratory Rate: 24 bpm SpO2: 95% Tempera ture: 36.8 (C) / 98.3 (F) Weight: 125 lbs 01/26/2018 Blood Pressure 1: 142/64 Code: 8480-6 BMI: 20.6 Code: 21312-7 Heart Rate 1: 90 bpm Height: 5'4" Respiratory Rate: 24 bpm SpO2: 92% Tempera ture: 36.3 (C) / 97.3 (F) Weight: 120 lbs 10/26/2017 Blood Pressure 1: 124/70 Code: 8480-6 BMI: 20.3 Code: 30032-4 Heart Rate 1: 76 bpm Height: 5'4" Respiratory Rate: 22 bpm SpO2: 94% Tempera ture: 36.7 (C) / 98.1 (F) Weight: 118 lbs 09/23/2017 Blood Pressure 1: 106/70 Code: 8480-6 BMI: 19.2 Code: 71642-9 Heart Rate 1: 76 bpm Height: 5'4" Respiratory Rate: 20 bpm SpO2: 94% Tempera ture: 36.8 (C) / 98.3 (F) Weight: 112 lbs 08/12/2017 Blood Pressure 1: 116/68 Code: 8480-6 BMI: 20.1 Code: 56942-8 Heart Rate 1: 80 bpm Height: 5'4" Respiratory Rate: 22 bpm SpO2: 95% Tempera ture: 36.8 (C) / 98.2 (F) Weight: 117 lbs 07/06/2017 Blood Pressure 1: 136/78 Code: 8480-6 BMI: 20.6 Code: 79025-4 Heart Rate 1: 76 bpm Height: 5'4" Respiratory Rate: 24 bpm SpO2: 96% Tempera ture: 36.8 (C) / 98.2 (F) Weight: 120 lbs 06/02/2017 Blood Pressure 1: 112/70 Code: 8480-6 Heart Rate 1: 92 bpm Height: 5'4" Respiratory Rate: 24 bpm SpO2: 95% Temperature: 37.0 (C) / 98.6 (F) Weight: 04/29/2017 Blood Pressure 1: 94/52 Code: 8480-6 BMI: 19.6 C ode: 60993-4 Heart Rate 1: 84 bpm Height: 5'4" [...] 92/58 Code: 8480-6 BMI: 19.2 C ode: 65847-7 Heart Rate 1: 84 bpm Height: 5'4" Respiratory Rate: 26 bpm SpO2: 95% Tempera ture: 36.7 (C) / 98.0 (F) Weight: 112 lbs 12/01/2016 Blood Pressure 1: 114/70 Code: 8480-6 BMI: 19.2 Code: 21063-5 Heart Rate 1: 96 bpm Height: 5'4" Respiratory Rate: 28 bpm SpO2: 93% Tempera ture: 38.3 (C) / 101.0 (F) Weight: 112 lbs 10/27/2016 Blood Pressure 1: 126/66 Code: 8480-6 BMI: 19.6 Code: 46335-3 Heart Rate 1: 92 bpm Height: 5'4" Respiratory Rate: 28 bpm SpO2: 90% Tempera ture: 36.8 (C) / 98.3 (F) Weight: 114 lbs 09/09/2016 Blood Pressure 1: 126/74 Code: 8480-6 Heart Rate 1: 104 bpm Height: 5'4" Respiratory Rate: 32 bpm SpO2: 88% Temperature: 37 .2 (C) / 99.0 (F) 08/26/2016 Blood Pressure 1: 134/82 Code: 8480-6 BMI: 22.0 Code: 17078-3 Heart Rate 1: 84 bpm Height: 5'4" Respiratory Rate: 24 bpm SpO2: 94% Tempera ture: 36.8 (C) / 98.3 (F) Weight: 128 lbs 05/21/2016 Blood Pressure 1: 142/80 Code: 8480-6 BMI: 21.6 Code: 99440-9 Heart Rate 1: 104 bpm Height: 5'4" Respiratory Rate: 22 bpm SpO2: 93% Tempera ture: 36.0 (C) / 96.8 (F) Weight: 126 lbs 03/25/2016 Blood Pressure 1: 126/62 Code: 8480-6 Heart Rate 1: 88 bpm Respiratory Rate: 20 bpm SpO2: 92% Temperature: 36.8 (C) / 98.3 (F) We ight: 130 lbs 01/23/2016 Blood Pressure 1: 146/82 Code: 8480-6 BMI: 24.1 Code: 03948-3 Heart Rate 1: 92 bpm Height: 5'3" Respiratory Rate: 22 bpm Temperature: 37 .1 (C) / 98.8 (F) Weight: 136 lbs 12/26/2015 Blood Pressure 1: 142/78 Code: 8480-6 BMI: 24.6 Code: 67051-2 Heart Rate 1: 78 bpm Height: 5'3" Respiratory Rate: 20 bpm Temperature: 36 .7 (C) / 98.1 (F) Weight: 139 lbs 12/03/2015 Blood Pressure 1: 126/60 Code: 8480-6 BMI: 24.6 Code: 83784-5 Heart Rate 1: 100 bpm Height: 5'3" Respiratory Rate: 28 bpm Temperature: 37 .6 (C) / 99.6 (F) Weight: 139 lbs 09/10/2015 Blood Pressure 1: 124/64 Code: 8480-6 BMI: 23.7 Code: 72527-7 Heart Rate 1: 88 bpm Height: 5'3" Respiratory Rate: 24 bpm SpO2: 95% Tempera ture: 36.4 (C) / 97.6 (F) Weight: 134 lbs 08/06/2015 Blood Pressure 1: 114/76 Code: 8480-6 BMI: 23.2 Code: 50744-3 Heart Rate 1: 88 bpm Height: 5'3" Respiratory Rate: 22 bpm Temperature: 36 .6 (C) / 97.9 (F) Weight: 131 lbs 07/18/2015 Blood Pressure 1: 144/78 Code: 8480-6 BMI: 23.7 Code: 22916-6 Heart Rate 1: 84 bpm Height: 5'3" Respiratory Rate: 20 bpm Temperature: 37 .2 (C) / 99.0 (F) Weight: 134 lbs 04/10/2015 Blood Pressure 1: 110/64 Code: 8480-6 Heart Rate 1: 80 bpm Height: Respiratory Rate: 20 bpm Temperature: 37.1 (C) / 98.8 (F) Weight: 03/05/2015 Blood Pressure 1: 136/80 Code: 8480-6 BMI: 23.9 Code: 99620-3 Heart Rate 1: 76 bpm Height: 5'3" Respiratory Rate: 24 bpm Temperature: 37 .0 (C) / 98.6 (F) Weight: 135 lbs 01/30/2015 Blood Pressure 1: 142/80 Code: 8480-6 BMI: 23.0 Code: 32961-4 Heart Rate 1: 96 bpm Height: 5'3" Respiratory Rate: 22 bpm Temperature: 36 .2 (C) / 97.2 (F) Weight: 130 lbs 01/02/2015 Blood Pressure 1: 124/70 Code: 8480-6 BMI: 23.4 Code: 25123-5 Heart Rate 1: 84 bpm Height: 5'3" Respiratory Rate: 24 bpm SpO2: 95% Tempera ture: 36.9 (C) / 98.5 (F) Weight: 132 lbs 10/03/2014 Blood Pressure 1: 106/68 Code: 8480-6 BMI: 22.5 Code: 44966-5 Heart Rate 1: 88 bpm Height: 5'3" Respiratory Rate: 24 bpm Temperature: 37 .0 (C) / 98.6 (F) Weight: 127 lbs 08/27/2014 Blood Pressure 1: 124/68 Code: 8480-6 BMI: 21.1 Code: 93924-8 Heart Rate 1: 88 bpm Height: 5'3" [...] 1: 120/70 Code: 8480-6 BMI: 19.2 Code: 30697-7 Heart Rate 1: 70 bpm Height: 5'4" Respiratory Rate: 20 bpm Temperature: 36 .9 (C) / 98.4 (F) Weight: 112 lbs 06/28/2013 Blood Pressure 1: 102/68 Code: 8480-6 BMI: 19.6 Code: 82940-7 Heart Rate 1: 76 bpm Height: 5'4" Respiratory Rate: 20 bpm Temperature: 36 .8 (C) / 98.2 (F) Weight: 114 lbs 05/31/2013 Blood Pressure 1: 106/70 Code: 8480-6 BMI: 18.9 Code: 89439-4 Heart Rate 1: 100 bpm Height: 5'4" Respiratory Rate: 20 bpm Temperature: 36 .4 (C) / 97.6 (F) Weight: 110 lbs 05/03/2013 Blood Pressure 1: 126/70 Code: 8480-6 BMI: 19.1 Code: 09314-3 Heart Rate 1: 88 bpm Height: 5'4" Respiratory Rate: 20 bpm Temperature: 37 .1 (C) / 98.8 (F) Weight: 111 lbs 04/25/2013 Blood Pressure 1: 114/68 Code: 8480-6 BMI: 19.4 Code: 43604-9 Heart Rate 1: 92 bpm Height: 5'4" Respiratory Rate: 24 bpm SpO2: 96% Tempera ture: 37.7 (C) / 99.8 (F) Weight: 113 lbs 03/08/2013 Blood Pressure 1: 94/68 Code: 8480-6 BMI: 21.3 C ode: 65763-4 Heart Rate 1: 88 bpm Height: 5'4" Respiratory Rate: 24 bpm Temperature: 37 .0 (C) / 98.6 (F) Weight: 124 lbs 02/07/2013 Blood Pressure 1: 106/64 Code: 8480-6 BMI: 21.8 Code: 96566-1 Heart Rate 1: 84 bpm Height: 5'4" Respiratory Rate: 22 bpm Temperature: 36 .8 (C) / 98.2 (F) Weight: 127 lbs 01/10/2013 Blood Pressure 1: 122/68 Code: 8480-6 BMI: 21.6 Code: 32609-6 Heart Rate 1: 94 bpm Height: 5'4" SpO2: 94% Temperature: 36.7 (C) / 98.1 (F) Weight: 126 lbs 09/28/2012 Blood Pressure 1: 124/78 Code: 8480-6 BMI: 24.9 Code: 42724-4 Heart Rate 1: 92 bpm Height: 5'4" Respiratory Rate: 20 bpm Temperature: 36 .7 (C) / 98.1 (F) Weight: 145 lbs 06/28/2012 Blood Pressure 1: 134/80 Code: 8480-6 BMI: 24.9 Code: 45841-1 Heart Rate 1: 76 bpm Height: 5'4" Respiratory Rate: 20 bpm Temperature: 36 .8 (C) / 98.2 (F) Weight: 145 lbs 05/03/2012 Blood Pressure 1: 108/62 Code: 8480-6 BMI: 25.6 Code: 56087-2 Heart Rate 1: 88 bpm Height: 5'4" Temperature: 36.2 (C) / 97.2 (F) Weight: 149 lbs 03/01/2012 Blood Pressure 1: 124/66 Code: 8480-6 BMI: 25.1 Code: 95245-9 Heart Rate 1: 76 bpm Height: 5'4" Respiratory Rate: 20 bpm Temperature: 36 .6 (C) / 97.9 (F) Weight: 146 lbs 01/26/2012 Blood Pressure 1: 118/82 Code: 8480-6 BMI: 25.1 Code: 57844-0 Heart Rate 1: 74 bpm Height: 5'4" Temperature: 36.8 (C) / 98.2 (F) Weight: 146 lbs 11/03/2011 Blood Pressure 1: 126/80 Code: 8480-6 BMI: 27.3 Code: 47021-0 Heart Rate 1: 72 bpm Height: 5'4" [...] prozac Encounters Encounter Performer Location Codes Date ([id number]) OFFICE/OUTPATIENT VISIT EST Diagnosis: Spinal stenosis, lumbar region with neurogenic claudication[ICD10: M48.062] Diagnosis: Spondylosis without myelopathy or radiculopathy, 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 CPT-4: 49403 02/21/2020 ([id number]) OFFICE/OUTPATIENT VISIT EST Diagnosis: Urticaria[ICD10: L50.9] Diagnosis: Allergy to morphine[ICD10: Z88.5] Diagnosis: Chronic pain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 [address] [place], [place] [id number] [place] FOLLOW UP 05/14/2010 Visit Plan: SVN with Albuterol 0.083% Q4 hrs and Q2hrs prn. Restart Spiriva Smoking Cessation 05/07/2010 Appointment: Vika Renteria WPtel: [address] [place], [place] [id number] [place] FOLLOW UP 05/07/2010 Patient Education: Patient Medication Summary Completed 05/07/2010 Appointment: Vika Renteria WPtel: [phone] [id number] ACUTE ILLNESS 04/08/2010 Patient Education: Patient Medication Summary Completed 04/08/2010 Referral: Kyle Billings WPtel: [phone] [facility] [place] Referral Completed Referral: Jaylan Matute WPtel: [address] [facility] [address] [id number] [place] Referral Initiated Referral: Kyle Billings WPtel: [phone] [facility] [place] Referral Appointment Requested Instructions Comment [...] prn breakthrough pain . Discussed that some [place] produc ts are petroleum free If [...]
--- OUTSIDE RECORDS SUMMARY | 2020-04-24 22:38 | XMS REPORT | CCD ---
Author Author Yana Renteria D.O. Organization [facility] Address [address] [place] [address] Phone Care Team Providers Care Utility Bagger Name Role Phone Vika Renteria D.O., PP Unavailable CCM Unavailable Summary Purpose Interface Exchange Insurance Providers Payer name Policy type / Coverage type Covered constitution party ID Effective Begin Date Effective End Date [employer] [facility] Medicaid [id number] U nknown Family History Family History data not found Social History Social History Element Codes Description Effective Dates Marital status Unknown 06/28/[address]: [id number] Currently smokes tobacco 05/2013 Allergies, Adverse Reactions, [...] mcg-4.5 mcg/actuation HFA aerosol inhaler RxNo rm: 6558185 INHALE TWO PUFFS BY MOUTH TWICE A DAY 02/19/2020 No Stop Date Active Daliresp 500 mcg tablet RxNorm: 9871363 TAKE ONE TABLET BY MOUTH DAILY 02/19/2020 No Stop Date Active oxycodone 30 mg tablet RxNorm: 8632757 1 Tablet(s) Oral four times a day replaces MS Contin 02/13/2020 03/14/2020 Active prednisone 20 mg tablet RxNorm: 881644 1 Tablet(s) Oral two yumi es a day 02/13/2020 02/20/2020 Inactive levothyroxine 25 mcg tablet RxNorm: 221046 TAKE ONE TAB LET BY MOUTH EVERY MORNING 02/09/2020 No Stop Date Active MS Contin 200 mg tablet,extended release RxNorm: 927138 1 Tablet(s) Oral two times a day 02/01/2020 03/01/2020 Active cyclobenzaprine 10 mg tablet RxNorm: 431810 TAKE ONE TA BLET BY MOUTH THREE TIMES A DAY NEEDED 01/31/2020 No Stop Date Active Premarin 0.45 mg tablet RxNorm: 825729 TAKE ONE TABLET BY MOUTH DAILY 01/31/2020 No Stop Date Active metformin 500 mg tablet RxNorm: 176353 1 Tablet(s) Oral QD 01/31/20 20 04/29/2020 Active gabapentin 300 mg capsule RxNorm: 414812 TAKE ONE CAPSULE BY [facility] TWICE A DAY 01/16/2020 No Stop Date Active potassium chloride ER 20 mEq tablet,extended release RxNorm: 404189 TAKE ONE TABLET BY MOUTH DAILY 01/08/2020 07/05/2020 Active ProAir HFA 90 mcg/actuation aerosol inhaler RxNorm: 970628 INHALE ONE PUFF BY MOUTH EVERY 4 HOURS FOR WHEEZING OR FOR SHORTNESS OF BREATH 01/04/2020 No Stop Date Active metformin 500 mg tablet RxNorm: 558437 1 Tablet(s) Oral QD 01/04/20 20 01/30/2020 Inactive MS Contin 200 mg tablet,extended release RxNorm: 414681 1 Tablet(s) Oral two times a day 01/02/2020 01/31/2020 Inactive Pulmicort 1 mg/2 mL suspension for nebulization RxNorm: 6168 19 USE ONE VIAL VIA NEBULIZER BY MOUTH TWICE A DAY 12/21/2019 No Stop Date Active furosemide 40 mg tablet RxNorm: 120723 TAKE ONE TABLET BY MOUTH EVERY MORNING NEEDED 12/20/2019 No Stop Date Active levothyroxine 25 mcg tablet RxNorm: 283462 TAKE ONE TAB LET BY MOUTH EVERY MORNING 12/20/2019 02/08/2020 Inactive MS Contin 200 mg tablet,extended release RxNorm: 540291 1 Tablet(s) Oral two times a day 12/05/2019 01/01/2020 Inactive Medrol (Aníbal) 4 mg tablets in a dose pack RxNorm: 922688 6 Tablet(s) Oral QD --then as directed 11/30/2019 12/05/2019 Inactive MS Contin 200 mg tablet,extended release RxNorm: 570979 1 Tablet(s) Oral two times a day 11/29/2019 12/04/2019 Inactive cyclobenzaprine 10 mg tablet RxNorm: 963347 TAKE ONE TA BLET BY MOUTH THREE TIMES A DAY NEEDED 11/21/2019 01/30/2020 Inactive MS Contin 200 mg tablet,extended release RxNorm: 968371 1 Tablet(s) Oral two times a day replaces 100mg dose 11/03/2019 11/02/2019 Inactive MS Contin 200 mg tablet,extended release RxNorm: 896630 1 Tablet(s) Oral two times a day replaces 100mg dose 11/03/2019 11/29/2019 Inactive ferrous sulfate 325 mg (65 mg iron) tablet RxNorm: 966675 1 Tab let(s) Oral QD 10/30/2019 No Stop Date Active MS Contin 100 mg tablet,extended release RxNorm: 962386 1 Table t(s) Oral QD 10/30/2019 10/29/2019 Inactive MS Contin 100 mg tablet,extended release RxNorm: 128711 1 Table t(s) Oral QD 10/30/2019 11/02/2019 Inactive Relistor 150 mg tablet RxNorm: 0577170 TAKE THREE TABLETS BY BENOIT TH DAILY 10/25/2019 No Stop Date Active pantoprazole 40 mg tablet,delayed release RxNorm: 300682 1 Tabl et(s) Oral QD 10/25/2019 No Stop Date Active Minipress 2 mg capsule RxNorm: 058220 1 Capsule(s) Oral QAM and 3 at bedtime 10/25/2019 No Stop Date Active Lancets, Super Thin RxNorm: 1 Unit Dose Miscellaneous QD 9 11/27/2020 Active Cymbalta 60 mg capsule,delayed release RxNorm: 027409 1 Capsule (s) Oral QAM 10/25/2019 No Stop Date Active Cymbalta 30 mg capsule,delayed release RxNorm: 550314 1 Capsule (s) Oral QAM 10/25/2019 No Stop Date Active oxycodone 15 mg tablet RxNorm: 8014672 1 Tablet(s) Oral four times a day as needed for pain 10/25/2019 11/28/2019 Inactive metformin 500 mg tablet RxNorm: 438176 1 Tablet(s) Oral QD 10/25/20 19 01/03/2020 Inactive levothyroxine 25 mcg tablet RxNorm: 781642 1 Tablet(s) Oral QAM 02/201912/19/2019 Inactive levothyroxine 25 mcg tablet RxNorm: 842694 1 Tablet(s) Oral QAM 02/201910/24/2019 Inactive MS Contin 100 mg tablet,extended release RxNorm: 899319 1 Tablet(s) Oral two times a day replaces fentanyl 10/25/2019 10/25/2019 Inactive Premarin 0.45 mg tablet RxNorm: 730737 TAKE ONE TABLET BY MOUTH DAILY 10/24/2019 01/30/2020 Inactive Duragesic 100 mcg/hr transdermal patch RxNorm: 601356 2 Application TD Q48H for pain 10/18/2019 10/24/2019 Inactive gabapentin 300 mg capsule RxNorm: 955757 TAKE ONE CAPSULE BY MO UTH TWICE A DAY 10/16/2019 01/15/2020 Inactive cyclobenzaprine 10 mg tablet RxNorm: 480712 TAKE ONE TA BLET BY MOUTH THREE TIMES A DAY NEEDED 09/27/2019 11/20/2019 Inactive Relistor 150 mg tablet RxNorm: 7652854 TAKE THREE TABLETS BY BENOIT TH DAILY 09/25/2019 10/24/2019 Inactive ProAir HFA 90 mcg/actuation aerosol inhaler RxNorm: 488455 INHALE ONE PUFF BY MOUTH EVERY 4 HOURS FOR WHEEZING OR FOR SHORTNESS OF BREATH 09/25/2019 01/03/2020 Inactive furosemide 40 mg tablet RxNorm: 114287 1 Tablet(s) Oral QAM as needed 09/25/2019 09/25/2019 Inactive oxycodone 15 mg tablet RxNorm: 4147629 1 Tablet(s) PO QID as nee ded for pain 09/21/2019 10/24/2019 Inactive Duragesic 100 mcg/hr transdermal patch RxNorm: 045033 2 Application TD Q48H for pain 09/19/2019 10/17/2019 Inactive Daliresp 500 mcg tablet RxNorm: 0528456 1 Tablet(s) Oral QD 019 02/18/2020 Inactive Relistor 150 mg tablet RxNorm: 7097270 TAKE THREE TABLETS BY BENOIT TH DAILY 07/25/2019 07/30/2019 Inactive cyclobenzaprine 10 mg tablet RxNorm: 058601 TAKE ONE TA BLET BY MOUTH THREE TIMES A DAY NEEDED 07/25/2019 09/22/2019 Inactive potassium chloride ER 20 mEq tablet,extended release RxNorm: 349949 TAKE ONE TABLET BY MOUTH DAILY 07/25/2019 01/07/2020 Inactive fluoxetine 40 mg capsule RxNorm: 667057 TAKE ONE CAPSULE BY BENOIT TH EVERY MORNING 07/11/2019 10/24/2019 Inactive Medrol (Aníbal) 4 mg tablets in a dose pack RxNorm: 609053 6 Tablet(s) PO QD --then as directed 07/10/2019 07/15/2019 Inactive omeprazole 40 mg capsule,delayed release RxNorm: 229199 1 Capsule(s) PO QD for stomach TAKE ONE CAPSULE BY MOUTH DAILY 07/10/2019 10/24/2019 Inactive Augmentin 875 mg-125 mg tablet RxNorm: 035045 1 Tablet(s) PO BID 07/16/2019 Inactive Trulicity 0.75 mg/0.5 mL subcutaneous pen injector RxNorm: 1 004909 0.75 Milliliter(s) SQ weekly 07/05/2019 10/24/2019 Inactive Compazine 10 mg tablet RxNorm: 203176 TAKE ONE TABLET B Y MOUTH FOUR TIMES A DAY NEEDED FOR NAUSEA 06/20/2019 07/19/2019 Inactive ProAir HFA 90 mcg/actuation aerosol inhaler RxNorm: 968520 INHALE ONE PUFF BY MOUTH EVERY 4 HOURS FOR WHEEZING OR FOR SHORTNESS OF BREATH 06/20/2019 06/23/2019 Inactive Daliresp 500 mcg tablet RxNorm: 9126140 TAKE ONE TABLET BY MOUTH DAILY 06/12/2019 09/10/2019 Inactive dqzcilou-atxmmoisq-knbdqqzet 3.5 mg/mL-10,000 unit/mL- 1 % ear solution RxNorm: 292305 4 Drop(s) otic (ear) TID to left ear 06/05/2019 10/24/2019 Inac tive furosemide 40 mg tablet RxNorm: 949150 TAKE ONE TABLET BY MOUTH EVERY MORNING 05/26/2019 07/09/2019 Inactive Duragesic 100 mcg/hr transdermal patch RxNorm: 999089 2 Application TD Q48H for pain 05/16/2019 06/14/2019 Inactive oxycodone 15 mg tablet RxNorm: 9423528 1 Tablet(s) PO QID as nee ded for pain 05/10/2019 09/20/2019 Inactive doxycycline hyclate 100 mg capsule RxNorm: 1363101 1 Capsule(s) PO BID 05/03/2019 05/12/2019 Inactive prednisone 20 mg tablet RxNorm: 540694 1 Tablet(s) PO T ID for 3 days then 1 po BID for 3 days then one daily for 3 days 05/03/2019 07/11/2019 Inactiv e Ozempic 0.25 mg or 0.5 mg (2 mg/1.5 mL) subcutaneous p en injector RxNorm: 0714657 0.5 Milligram(s) SQ QW 05/03/2019 07/09/2019 Inactive fluconazole 100 mg tablet RxNorm: 648565 1 Tablet(s) PO QD 05/03/20 19 05/07/2019 Inactive Premarin 0.45 mg tablet RxNorm: 405963 TAKE ONE TABLET BY MOUTH DAILY 05/03/2019 10/23/2019 Inactive potassium chloride ER 20 mEq tablet,extended release RxNorm: 285509 1 Tablet(s) PO QD 04/27/2019 07/25/2019 Inactive potassium chloride ER 20 mEq tablet,extended release RxNorm: 653106 1 Tablet(s) PO QD 04/25/2019 04/26/2019 Inactive Compazine 10 mg tablet RxNorm: 347413 1 Tablet(s) PO QID as nee ded for nausea 04/25/2019 05/04/2019 Inactive ProAir HFA 90 mcg/actuation aerosol inhaler RxNorm: 747742 INHALE ONE PUFF BY MOUTH EVERY 4 HOURS FOR WHEEZING OR FOR SHORTNESS OF BREATH 04/12/2019 06/10/2019 Inactive Medrol (Aníbal) 4 mg tablets in a dose pack RxNorm: 044997 6 Tablet(s) PO QD --then as directed 04/11/2019 04/16/2019 Inactive Symbicort 160 mcg-4.5 mcg/actuation HFA aerosol inhaler RxNo rm: 6837845 2 Puff(s) INH BID 04/10/2019 10/06/2019 Inactive levothyroxine 50 mcg tablet RxNorm: 788660 1 Tablet(s) PO QD 201810/24/2019 Inactive gabapentin 300 mg capsule RxNorm: 737278 1 Capsule(s) PO BID 201810/02/2019 Inactive Symbicort 160 mcg-4.5 mcg/actuation HFA aerosol inhaler RxNo rm: 9699016 2 Puff(s) INH BID 04/06/2019 04/09/2019 Inactive oxycodone 15 mg tablet RxNorm: 4549801 1 Tablet(s) PO QID as nee ded for pain 04/05/2019 05/09/2019 Inactive levothyroxine 50 mcg tablet RxNorm: 934489 1 Tablet(s) PO QD 201804/09/2019 Inactive furosemide 40 mg tablet RxNorm: 317103 TAKE ONE TABLET BY MOUTH EVERY MORNING 03/21/2019 04/19/2019 Inactive levothyroxine 50 mcg tablet RxNorm: 662591 TAKE ONE TABLET BY M OUTH DAILY 03/21/2019 03/27/2019 Inactive Duragesic 100 mcg/hr transdermal patch RxNorm: 248374 2 Application TD Q48H for pain 03/13/2019 04/11/2019 Inactive oxycodone 15 mg tablet RxNorm: 3879439 1 Tablet(s) PO QID as nee ded for pain 03/06/2019 04/04/2019 Inactive Relistor 150 mg tablet RxNorm: 4326077 3 Tablet(s) PO QD 02/28/2019 0 05/28/2019 Inactive cyclobenzaprine 10 mg tablet RxNorm: 519418 1 Tablet(s) PO TID as needed 02/28/2019 05/28/2019 Inactive phentermine 37.5 mg tablet RxNorm: 345828 1 Tablet(s) PO QAM 201803/15/2019 Inactive Duragesic 100 mcg/hr transdermal patch RxNorm: 160816 2 Application TD Q48H for pain 02/09/2019 03/10/2019 Inactive Daliresp 500 mcg tablet RxNorm: 6127810 TAKE ONE TABLET BY MOUTH DAILY 01/31/2019 05/30/2019 Inactive Premarin 0.45 mg tablet RxNorm: 571767 1 Tablet(s) PO QD 01/31/2019 0 04/30/2019 Inactive fluoxetine 40 mg capsule RxNorm: 098648 Capsule(s) TAKE ONE CAPSULE BY MOUTH EVERY MORNING 01/31/2019 04/30/2019 Inactive levothyroxine 50 mcg tablet RxNorm: 639325 1 Tablet(s) PO QD 201804/10/2019 Inactive follow up in 3 weeks levothyroxine 50 mcg tablet RxNorm: 160060 1 Tablet(s) PO QD 201801/25/2019 Inactive follow up in 3 weeks potassium chloride ER 20 mEq tablet,extended release RxNorm: 627492 2 Tablet(s) PO BID 01/23/2019 01/08/2020 Inactive Synthroid 50 mcg tablet RxNorm: 789277 TAKE ONE TABLET BY MOUTH DAILY 01/16/2019 10/24/2019 Inactive potassium chloride ER 20 mEq tablet,extended release RxNorm: 478823 2 Tablet(s) PO BID 01/04/2019 01/22/2019 Inactive ProAir HFA 90 mcg/actuation aerosol inhaler RxNorm: 831751 INHALE ONE PUFF BY MOUTH EVERY 4 HOURS FOR WHEEZING OR SHORTNESS OF BREATH 01/04/201902/20 Inactive Request already responded to by other me ans (e.g. phone or fax) ProAir HFA 90 mcg/actuation aerosol inhaler RxNorm: 9882304 INHALE ONE PUFF BY MOUTH EVERY 4 HOURS FOR WHEEZING OR SHORTNESS OF BREATH 01/02/201912/23 Inactive gabapentin 300 mg capsule RxNorm: 655283 TAKE ONE CAPSULE BY MO UTH TWICE A DAY 12/30/2018 04/06/2019 Inactive furosemide 40 mg tablet RxNorm: 633522 1 Tablet(s) PO QAM 12/26/2018 02/23/2019 Inactive Compazine 10 mg tablet RxNorm: 886067 1 Tablet(s) PO QID as nee ded for nausea 12/07/2018 12/16/2018 Inactive metolazone 2.5 mg tablet RxNorm: 126701 TAKE ONE TABLET BY MOUT H EVERY MORNING 12/05/2018 01/03/2019 Inactive metformin ER 500 mg tablet,extended release 24 hr RxNorm: 86 0975 TAKE ONE TABLET BY MOUTH DAILY 12/05/2018 01/31/2020 Inactive Synthroid 50 mcg tablet RxNorm: 042959 1 Tablet(s) PO QD 11/25/2018 0 01/03/2019 Inactive DC any other synthroid strengths. Should be 50mcg only cyclobenzaprine 10 mg tablet RxNorm: 392301 TAKE ONE TA BLET BY MOUTH THREE TIMES A DAY NEEDED 11/09/2018 02/06/2019 Inactive metolazone 2.5 mg tablet RxNorm: 874197 1 Tablet(s) PO QAM repl aces 5mg dose 11/02/2018 12/01/2018 Inactive potassium chloride ER 20 mEq tablet,extended release RxNorm: 465702 2 Tablet(s) PO QD 2018 01/02/2019 Inactive Compazine 10 mg tablet RxNorm: 563615 1 Tablet(s) PO QID as nee ded for nausea 10/18/2018 12/07/2018 Inactive furosemide 40 mg tablet RxNorm: 123212 1 Tablet(s) PO QAM 10/12/2018 12/10/2018 Inactive ondansetron 8 mg disintegrating tablet RxNorm: 433670 1 Tablet(s) PO Q6H as needed 10/11/2018 10/17/2018 Inactive scopolamine 1 mg over 3 days transdermal patch RxNorm: 36761 2 1 Application TD behind ear. Take off after three days 10/11/2018 01/02/2019 Inactive furosemide 40 mg tablet RxNorm: 636836 1 Tablet(s) PO QAM 10/10/2018 12/26/2018 Inactive metolazone 5 mg tablet RxNorm: 884147 1 Tablet(s) PO QAM 10/06/2018 1 01/03/2018 Inactive metolazone 5 mg tablet RxNorm: 066495 1 Tablet(s) PO QAM 10/06/2018 1 12/05/2017 Inactive Xtampza ER 36 mg capsule sprinkle RxNorm: 2318501 1 Capsule(s) P O BID 10/05/2018 01/02/2019 Inactive Xtampza ER 36 mg capsule sprinkle RxNorm: 5434197 1 Capsule(s) P O BID 10/05/2018 02/12/2019 Inactive omeprazole 40 mg capsule,delayed release RxNorm: 712321 TAKE ONE CAPSULE BY MOUTH DAILY 10/03/2018 12/31/2018 Inactive Duragesic 100 mcg/hr transdermal patch RxNorm: 570295 2 Application TD Q48H for pain 09/30/2018 10/29/2018 Inactive Synthroid 50 mcg tablet RxNorm: 790554 1 Tablet(s) PO QD 09/29/2018 0 11/25/2018 Inactive DC any other synthroid strengths. Should be 50mcg only Synthroid 50 mcg tablet RxNorm: 468628 1 Tablet(s) PO QD 09/29/2018 1 11/28/2017 Inactive furosemide 40 mg tablet RxNorm: 279174 2 Tablet(s) PO Q AM for 1 week then every other day for 2 weeks 09/27/2018 10/12/2018 Inactive fluoxetine 40 mg capsule RxNorm: 812599 2 Capsule(s) PO QD 09/27/20 18 10/17/2018 Inactive potassium chloride ER 20 mEq tablet,extended release RxNorm: 575644 2 Tablet(s) PO QD for 1 week then every other day for 2 weeks 09/27/2018 2018 Inactive ProAir HFA 90 mcg/actuation aerosol inhaler RxNorm: 8710176 INHALE ONE PUFF BY MOUTH EVERY 4 HOURS FOR WHEEZING OR SHORTNESS OF BREATH 09/26/201811/23 Inactive Synthroid 75 mcg tablet RxNorm: 879036 1 Tablet(s) PO QD 09/09/2018 1 Inactive Synthroid 75 mcg tablet RxNorm: 492744 1 Tablet(s) PO QD 09/09/2018 1 11/28/2017 Inactive furosemide 40 mg tablet RxNorm: 524866 1 Tablet(s) PO QD 09/06/2018 1 Inactive potassium chloride ER 20 mEq tablet,extended release RxNorm: 705252 1 Tablet(s) PO QD 09/06/2018 09/19/2018 Inactive Duragesic 100 mcg/hr transdermal patch RxNorm: 427736 2 Application TD Q48H for pain 08/30/2018 09/28/2018 Inactive gabapentin 300 mg capsule RxNorm: 178613 TAKE ONE CAPSULE BY [facility] TWICE A DAY 08/23/2018 12/20/2018 Inactive Daliresp 500 mcg tablet RxNorm: 9050230 TAKE ONE TABLET BY MOUTH DAILY 08/23/2018 01/19/2019 Inactive Pulmicort 1 mg/2 mL suspension for nebulization RxNorm: 6168 19 USE ONE VIAL VIA NEBULIZER BY MOUTH TWICE A DAY 08/23/2018 07/11/2019 Inactive Synthroid 88 mcg tablet RxNorm: 973226 1 Tablet(s) PO QD 08/19/2018 Inactive Medrol (Aníbal) 4 mg tablets in a dose pack RxNorm: 080507 Tablet(s) PO take as directed 08/16/2018 09/05/2018 Inactive Relistor 150 mg tablet RxNorm: 4239816 3 Tablet(s) PO QD 08/16/2018 Inactive Zithromax Z-Aníbal 250 mg tablet RxNorm: 936948 Tablet(s) PO take as directed 08/16/2018 09/05/2018 Inactive cyclobenzaprine 10 mg tablet RxNorm: 898257 1 Tablet(s) PO TID as needed 08/16/2018 11/08/2018 Inactive Synthroid 88 mcg tablet RxNorm: 073511 1 Tablet(s) PO Q D NEEDS UPDATED LABS BEFORE FURTHER REFILLS 08/08/2018 08/19/2018 Inactive Premarin 0.45 mg tablet RxNorm: 008875 1 Tablet(s) PO QD 08/03/2018 0 01/31/2019 Inactive fluoxetine 20 mg capsule RxNorm: 406659 TAKE ONE CAPSULE BY BENOIT TH DAILY 08/03/2018 09/26/2018 Inactive Xtampza ER 36 mg capsule sprinkle RxNorm: 5187493 1 Capsule(s) P O BID 08/03/2018 09/01/2018 Inactive metformin ER 500 mg tablet,extended release 24 hr RxNorm: 86 0975 1 Tablet(s) PO QD 08/03/2018 10/31/2018 Inactive Symbicort 160 mcg-4.5 mcg/actuation HFA aerosol inhaler RxNo rm: 8132659 2 Puff(s) INH BID 08/03/2018 01/29/2019 Inactive Duragesic 100 mcg/hr transdermal patch RxNorm: 509849 2 Application TD Q48H for pain 07/29/2018 08/27/2018 Inactive ProAir HFA 90 mcg/actuation aerosol inhaler RxNorm: 077538 INHALE TWO PUFFS BY MOUTH EVERY 4 HOURS FOR WHEEZING OR SHORTNESS OF BREATH 07/27/201802/2018 Inactive Relistor 150 mg tablet RxNorm: 8420890 3 Tablet(s) PO QD 07/20/2018 0 08/15/2018 Inactive metformin ER 500 mg tablet,extended release 24 hr RxNorm: 86 0975 TAKE ONE TABLET BY MOUTH DAILY 07/08/2018 08/02/2018 Inactive fluoxetine 40 mg capsule RxNorm: 871435 TAKE ONE CAPSULE BY BENOIT TH EVERY MORNING 07/08/2018 10/05/2018 Inactive Xtampza ER 18 mg capsule sprinkle RxNorm: 4268684 1 Capsule(s) P O BID 07/08/2018 08/02/2018 Inactive Relistor 150 mg tablet RxNorm: 2430771 3 Tablet(s) PO QD 07/08/2018 0 07/12/2018 Inactive Synthroid 88 mcg tablet RxNorm: 119524 1 Tablet(s) PO Q D NEEDS UPDATED LABS BEFORE FURTHER REFILLS 06/23/2018 07/07/2018 Inactive fluoxetine 40 mg capsule RxNorm: 151932 TAKE ONE CAPSULE BY BENOIT TH EVERY MORNING 06/15/2018 09/26/2018 Inactive orphenadrine citrate ER 100 mg tablet,extended release RxNor m: 266817 TAKE ONE TABLET BY MOUTH TWICE A DAY FOR MUSCLE SPASM 06/15/2018 08/15/2018 Truman ctive Duragesic 100 mcg/hr transdermal patch RxNorm: 688325 2 Application TD Q48H for pain 05/30/2018 06/28/2018 Inactive ProAir HFA 90 mcg/actuation aerosol inhaler RxNorm: 272361 INHALE TWO PUFFS BY MOUTH EVERY 4 HOURS FOR WHEEZING OR SHORTNESS OF BREATH 05/19/201803/2018 Inactive Chantix Continuing Month Box 1 mg tablet RxNorm: 290899 TAKE ONE TABLET BY MOUTH TWICE A DAY 05/19/2018 08/15/2018 Inactive oxycodone 10 mg tablet RxNorm: 2600170 1-2 Tablet(s) PO QID as n eeded for pain 05/19/2018 07/07/2018 Inactive gabapentin 300 mg capsule RxNorm: 158728 TAKE ONE CAPSULE BY MO COH TWICE A DAY 05/18/2018 07/16/2018 Inactive ProAir HFA 90 mcg/actuation aerosol inhaler RxNorm: 049300 INHALE TWO PUFFS BY MOUTH EVERY 4 HOURS FOR WHEEZING OR SHORTNESS OF BREATH 05/04/201804/23 Inactive Augmentin 500 mg-125 mg tablet RxNorm: 434591 1 Tablet(s) PO BID 05/03/2018 Inactive oxycodone 10 mg tablet RxNorm: 8980653 1-2 Tablet(s) PO QID as n eeded for pain 04/21/2018 05/18/2018 Inactive Synthroid 88 mcg tablet RxNorm: 458912 1 Tablet(s) PO QD 04/15/2018 0 08/08/2018 Inactive Symbicort 160 mcg-4.5 mcg/actuation HFA aerosol inhaler RxNo rm: 0481109 2 Puff(s) INH BID 04/15/2018 04/10/2019 Inactive Premarin 0.45 mg tablet RxNorm: 849298 1 Tablet(s) PO QD 04/15/2018 0 08/03/2018 Inactive ProAir HFA 90 mcg/actuation aerosol inhaler RxNorm: 223603 2 Puff(s) INH Q4H prn for wheezing or shortness of breath 04/15/2018 05/03/2018 Inactive metformin ER 500 mg tablet,extended release 24 hr RxNorm: 86 0975 1 Tablet(s) PO QD 04/11/2018 07/07/2018 Inactive omeprazole 40 mg capsule,delayed release RxNorm: 004740 TAKE ONE CAPSULE BY MOUTH DAILY 04/10/2018 06/08/2018 Inactive Synthroid 88 mcg tablet RxNorm: 611649 1 Tablet(s) PO QD 04/04/2018 0 04/14/2018 Inactive Synthroid 88 mcg tablet RxNorm: 378345 1 Tablet(s) PO QD 04/04/2018 0 04/03/2018 Inactive orphenadrine citrate ER 100 mg tablet,extended release RxNor m: 576962 1 Tablet(s) PO BID for muscle spasm 04/04/2018 05/03/2018 Inactive metformin ER 500 mg tablet,extended release 24 hr RxNorm: 86 0975 1 Tablet(s) PO QD NEEDS UPDATED LABS 03/31/2018 04/11/2018 Inactive doxycycline hyclate 100 mg capsule RxNorm: 6351789 1 Capsule(s) PO BID 03/31/2018 04/09/2018 Inactive prednisone 20 mg tablet RxNorm: 265874 3 Tablet(s) PO T ID for 3 days then 1 po BID for 3 days then one daily for 3 days 03/31/2018 07/06/2018 Inactiv e Chantix Continuing Month Box 1 mg tablet RxNorm: 468180 TAKE ONE TABLET BY MOUTH TWICE A DAY 03/25/2018 03/30/2018 Inactive oxycodone 10 mg tablet RxNorm: 8792025 1-2 Tablet(s) PO QID as n eeded for pain 03/21/2018 04/20/2018 Inactive Daliresp 500 mcg tablet RxNorm: 9549383 1 Tablet(s) PO QD 03/15/2018 08/22/2018 Inactive metformin ER 500 mg tablet,extended release 24 hr RxNorm: 86 0975 1 Tablet(s) PO QD NEEDS UPDATED LABS 03/14/2018 03/31/2018 Inactive nystatin 100,000 unit/mL oral suspension RxNorm: 583118 5 Chio liter(s) PO QID 03/02/2018 03/15/2018 Inactive nystatin 100,000 unit/mL oral suspension RxNorm: 072734 5 Chio liter(s) PO QID 03/02/2018 03/01/2018 Inactive oxycodone 10 mg tablet RxNorm: 7707922 1-2 Tablet(s) PO QID as n eeded for pain 02/16/2018 03/20/2018 Inactive fluoxetine 20 mg capsule RxNorm: 254718 1 Capsule(s) PO QD 02/15/20 18 08/02/2018 Inactive metformin ER 500 mg tablet,extended release 24 hr RxNorm: 86 0975 1 Tablet(s) PO QD Needs updated labs 02/14/2018 03/14/2018 Inactive cefdinir 300 mg capsule RxNorm: 500969 1 Capsule(s) PO BID 01/27/20 18 02/04/2018 Inactive orphenadrine citrate ER 100 mg tablet,extended release RxNor m: 362507 1 Tablet(s) PO BID for muscle spasm 01/26/2018 04/04/2018 Inactive gabapentin 300 mg capsule RxNorm: 431428 1 Capsule(s) PO BID 201704/17/2018 Inactive oxycodone 10 mg tablet RxNorm: 0647487 1-2 Tablet(s) PO QID as n eeded for pain 01/17/2018 02/15/2018 Inactive Duragesic 100 mcg/hr transdermal patch RxNorm: 272295 2 Application TD Q48H for pain 01/17/2018 02/15/2018 Inactive gabapentin 300 mg capsule RxNorm: 050748 TAKE ONE CAPSULE BY MO UTH TWICE A DAY 12/20/2017 01/18/2018 Inactive fluoxetine 40 mg capsule RxNorm: 789813 TAKE ONE CAPSULE BY BENOIT TH EVERY MORNING 12/15/2017 03/14/2018 Inactive OneTouch Ultra Test strips RxNorm: TEST DAILY 11/04/2017 02/01/2018 Inactive gabapentin 300 mg capsule RxNorm: 980366 1 Capsule(s) P O TID replaces BID dosing 10/26/2017 02/22/2018 Inactive oxycodone 10 mg tablet RxNorm: 5197246 1-2 Tablet(s) PO QID as n eeded for pain 10/18/2017 01/16/2018 Inactive Duragesic 100 mcg/hr transdermal patch RxNorm: 523216 2 Application TD Q48H for pain 10/18/2017 11/16/2017 Inactive gabapentin 300 mg capsule RxNorm: 073225 1 Capsule(s) PO BID 201610/25/2017 Inactive Abilify 5 mg tablet RxNorm: 074496 1 Tablet(s) PO QAM 09/23/201702/2017 Inactive gabapentin 300 mg capsule RxNorm: 957695 1 Capsule(s) PO BID 201610/17/2017 Inactive oxycodone 10 mg tablet RxNorm: 6192016 1-2 Tablet(s) PO QID as n eeded for pain 09/15/2017 10/17/2017 Inactive Duragesic 100 mcg/hr transdermal patch RxNorm: 907956 2 Application TD Q48H for pain 09/15/2017 10/14/2017 Inactive Duragesic 100 mcg/hr transdermal patch RxNorm: 025823 2 Application TD Q48H for pain 09/15/2017 10/24/2019 Inactive oxycodone 10 mg tablet RxNorm: 5584706 1-2 Tablet(s) PO QID as n eeded for pain 09/15/2017 08/15/2018 Inactive Daliresp 500 mcg tablet RxNorm: 7390176 1 Tablet(s) PO QD 09/06/2017 03/15/2018 Inactive Ventolin HFA 90 mcg/actuation aerosol inhaler RxNorm: 954711 2 Puff(s) INH Q4H as needed 09/02/2017 05/19/2018 Inactive oxycodone 10 mg tablet RxNorm: 4597965 1-2 Tablet(s) PO QID as n eeded for pain 08/17/2017 09/14/2017 Inactive Duragesic 100 mcg/hr transdermal patch RxNorm: 033552 2 Application TD Q48H for pain 08/17/2017 09/14/2017 Inactive fluoxetine 40 mg capsule RxNorm: 292196 Capsule(s) TAKE ONE CAPSULE BY MOUTH EVERY MORNING 08/17/2017 12/14/2017 Inactive Pulmicort 1 mg/2 mL suspension for nebulization RxNorm: 6168 19 1 Unit Dose INH BID Dx: COPD (J44.9) 08/16/2017 08/22/2018 Inactive gabapentin 300 mg capsule RxNorm: 875534 1 Capsule(s) PO QHS 201610/18/2017 Inactive fluoxetine 20 mg capsule RxNorm: 883198 1 Capsule(s) PO QD 08/12/20 17 02/14/2018 Inactive Abilify 2 mg tablet RxNorm: 487343 1 Tablet(s) PO QD TA KE ONE TABLET BY MOUTH DAILY 08/12/2017 10/25/2017 Inactive metformin ER 500 mg tablet,extended release 24 hr RxNorm: 86 0975 1 Tablet(s) PO QD 08/10/2017 02/14/2018 Inactive Synthroid 112 mcg tablet RxNorm: 858965 1 Tablet(s) PO QD 08/10/2017 04/15/2018 Inactive oxycodone 10 mg tablet RxNorm: 8169943 1-2 Tablet(s) PO QID as n eeded for pain 07/19/2017 08/16/2017 Inactive Duragesic 100 mcg/hr transdermal patch RxNorm: 262730 2 Application TD Q48H for pain 07/19/2017 08/16/2017 Inactive Ventolin HFA 90 mcg/actuation aerosol inhaler RxNorm: 185412 2 Puff(s) INH Q4H as needed 07/12/2017 09/02/2017 Inactive Abilify 2 mg tablet RxNorm: 319315 1 Tablet(s) PO QD TA KE ONE TABLET BY MOUTH DAILY 07/06/2017 08/11/2017 Inactive gabapentin 800 mg tablet RxNorm: 407231 1 Tablet(s) PO TID 06/22/20 17 07/05/2017 Inactive Chantix Starting Month Box 0.5 mg (11)-1 mg (42) table ts in dose pack RxNorm: 355176 TAKE BY MOUTH INSTRUCTED - PER PACKAGE INSTRUCTIONS 06/0707/04/2017 Inactive Ventolin HFA 90 mcg/actuation aerosol inhaler RxNorm: 028268 2 Puff(s) INH Q4H as needed 05/26/2017 07/12/2017 Inactive Duragesic 100 mcg/hr transdermal patch RxNorm: 419013 2 Application TD Q48H for pain 05/19/2017 06/17/2017 Inactive oxycodone 10 mg tablet RxNorm: 7849142 1-2 Tablet(s) PO QID as n eeded for pain 05/19/2017 07/18/2017 Inactive Abilify 2 mg tablet RxNorm: 025520 TAKE ONE TABLET BY MOUTH DAILY 0 05/10/2017 07/05/2017 Inactive Synthroid 112 mcg tablet RxNorm: 197961 1 Tablet(s) PO QD 05/06/2017 08/10/2017 Inactive metformin ER 500 mg tablet,extended release 24 hr RxNorm: 86 0975 1 Tablet(s) PO QD 05/06/2017 08/10/2017 Inactive Topamax 100 mg tablet RxNorm: 717967 1 Tablet(s) PO QHS 05/06/2017 Inactive Premarin 0.45 mg tablet RxNorm: 176252 1 Tablet(s) PO QD 05/06/2017 0 04/15/2018 Inactive orphenadrine citrate ER 100 mg tablet,extended release RxNor m: 056929 1 Tablet(s) PO TID for muscle spasm--replaces methocarbamol 04/29/2017 Inactive oxycodone 10 mg tablet RxNorm: 8518738 1-2 Tablet(s) PO QID as n eeded for pain 04/21/2017 05/18/2017 Inactive Duragesic 100 mcg/hr transdermal patch RxNorm: 797114 2 Application TD Q48H for pain 04/21/2017 05/18/2017 Inactive fluoxetine 40 mg capsule RxNorm: 776668 Capsule(s) TAKE ONE CAPSULE BY MOUTH EVERY MORNING 04/20/2017 08/17/2017 Inactive Ventolin HFA 90 mcg/actuation aerosol inhaler RxNorm: 813392 2 Puff(s) INH Q4H as needed 04/05/2017 05/26/2017 Inactive Symbicort 160 mcg-4.5 mcg/actuation HFA aerosol inhaler RxNo rm: 9391429 2 Puff(s) INH BID 03/30/2017 04/15/2018 Inactive Spiriva with HandiHaler 18 mcg and inhalation capsules RxNor m: 258899 1 Capsule(s) INH QD USING HANDIHALER 03/30/2017 02/12/2019 Inactive Duragesic 100 mcg/hr transdermal patch RxNorm: 630922 2 Application TD Q48H for pain 03/18/2017 04/16/2017 Inactive oxycodone 10 mg tablet RxNorm: 6843026 1-2 Tablet(s) PO QID as n eeded for pain 03/18/2017 04/20/2017 Inactive metformin ER 500 mg tablet,extended release 24 hr RxNorm: 86 0975 Tablet(s) TAKE ONE TABLET BY MOUTH DAILY 03/01/2017 05/06/2017 Inactive Premarin 0.45 mg tablet RxNorm: 429714 Tablet(s) TAKE ONE TABLE T BY MOUTH DAILY 03/01/2017 05/06/2017 Inactive Synthroid 112 mcg tablet RxNorm: 130930 Tablet(s) TAKE ONE TABLET BY MOUTH DAILY 03/01/2017 05/06/2017 Inactive Daliresp 500 mcg tablet RxNorm: 4399299 1 Tablet(s) PO QD 03/01/2017 09/06/2017 Inactive 16.2 mg-0.1037 mg-0.0194 mg tablet RxNorm: 1237310 Tablet(s) PO PRN for gas and cramping 02/23/2017 04/28/2017 Inactive TAKE TWO TABLET S BY MOUTH THREE TIMES A DAY NEEDED FOR GAS AND CRAMPING gabapentin 800 mg tablet RxNorm: 242816 1 Tablet(s) PO TID repl aces 600mg 02/23/2017 04/28/2017 Inactive Duragesic 100 mcg/hr transdermal patch RxNorm: 554494 2 Application TD Q48H for pain 02/17/2017 03/17/2017 Inactive fluoxetine 20 mg capsule RxNorm: 166625 1 Capsule(s) PO QD 02/18/20 17 08/12/2017 Inactive oxycodone 20 mg tablet RxNorm: 2914056 1 Tablet(s) PO QID as nee ded for pain 02/17/2017 03/17/2017 Inactive Ventolin HFA 90 mcg/actuation aerosol inhaler RxNorm: 836166 INHALE TWO PUFFS BY MOUTH EVERY 4 HOURS NEEDED 02/15/2017 04/05/2017 Inactive Silvadene 1 % topical cream RxNorm: 191146 1 Application TOP BI D to burn area 02/01/2017 09/22/2017 Inactive Topamax 100 mg tablet RxNorm: 038001 TAKE ONE TABLET BY MOUTH EVERY NIGHT AT BEDTIME 01/29/2017 05/06/2017 Inactive Chantix Starting Month Box 0.5 mg (11)-1 mg (42) table ts in dose pack RxNorm: 713950 Tablet(s) PO as directed 01/29/2017 06/01/2017 Inactive Abilify 2 mg tablet RxNorm: 024151 TAKE ONE TABLET BY MOUTH DAILY 0 01/26/2017 04/25/2017 Inactive Chantix Starting Month Box 0.5 mg (11)-1 mg (42) table ts in dose pack RxNorm: 958087 Tablet(s) PO as directed 01/20/2017 01/28/2017 Inactive gabapentin 600 mg tablet RxNorm: 759626 1 Tablet(s) PO TID 01/21/20 17 02/22/2017 Inactive Chantix Continuing Month Box 1 mg tablet RxNorm: 805385 1 Table t(s) PO BID 12/31/2016 06/01/2017 Inactive Spiriva with HandiHaler 18 mcg and inhalation capsules RxNor m: 455639 INHALE THE ENTIRE CONTENTS OF 1 CAPSULE ONCE A DAY USING HANDIHALER 12/31/201607/2017 Inactive Synthroid 112 mcg tablet RxNorm: 782669 TAKE ONE TABLET BY MOUT H DAILY 12/30/2016 03/01/2017 Inactive metformin ER 500 mg tablet,extended release 24 hr RxNorm: 86 0975 TAKE ONE TABLET BY MOUTH DAILY 12/30/2016 03/01/2017 Inactive Premarin 0.45 mg tablet RxNorm: 731255 TAKE ONE TABLET BY MOUTH DAILY 12/30/2016 03/01/2017 Inactive omeprazole 40 mg capsule,delayed release RxNorm: 046717 TAKE ONE CAPSULE BY MOUTH DAILY 12/30/2016 01/25/2018 Inactive Ventolin HFA 90 mcg/actuation aerosol inhaler RxNorm: 906681 INHALE TWO PUFFS BY MOUTH EVERY 4 HOURS NEEDED 12/28/2016 02/13/2017 Inactive fluoxetine 40 mg capsule RxNorm: 420224 TAKE ONE CAPSULE BY BENOIT TH EVERY MORNING 12/15/2016 04/20/2017 Inactive Chantix Continuing Month Box 1 mg tablet RxNorm: 131376 TAKE ONE TABLET BY MOUTH TWICE A DAY 12/04/2016 12/31/2016 Inactive doxycycline hyclate 100 mg capsule RxNorm: 7428787 1 Capsule(s) PO BID 12/01/2016 12/07/2016 Inactive Levaquin 750 mg tablet RxNorm: 408075 1 Tablet(s) PO QD 12/01/2016 Inactive Abilify 2 mg tablet RxNorm: 210270 TAKE ONE TABLET BY MOUTH DAILY 0 11/25/2016 11/30/2016 Inactive Ventolin HFA 90 mcg/actuation aerosol inhaler RxNorm: 465057 INHALE TWO PUFFS BY MOUTH EVERY 4 HOURS NEEDED 11/02/2016 12/19/2016 Inactive Chantix Continuing Month Box 1 mg tablet RxNorm: 192752 Tablet(s) PO as directed 10/30/2016 12/03/2016 Inactive Symbicort 160 mcg-4.5 mcg/actuation HFA aerosol inhaler RxNo rm: 6866024 INHALE TWO PUFFS TWO TIMES A DAY 10/30/2016 03/30/2017 Inactive Abilify 2 mg tablet RxNorm: 429680 1 Tablet(s) PO QD 10/27/201611/24 Inactive amoxicillin 500 mg capsule RxNorm: 011978 1 Capsule(s) PO TID 10/1410/23/2016 Inactive amoxicillin 500 mg capsule RxNorm: 404207 1 Capsule(s) PO TID 10/1410/13/2016 Inactive Synthroid 112 mcg tablet RxNorm: 552657 TAKE ONE TABLET BY MOUT H DAILY 09/28/2016 12/29/2016 Inactive Topamax 100 mg tablet RxNorm: 756916 TAKE ONE TABLET BY MOUTH EVERY NIGHT AT BEDTIME 09/28/2016 01/28/2017 Inactive Premarin 0.45 mg tablet RxNorm: 648906 TAKE ONE TABLET BY MOUTH DAILY 09/28/2016 12/29/2016 Inactive metformin ER 500 mg tablet,extended release 24 hr RxNorm: 86 0975 TAKE ONE TABLET BY MOUTH DAILY 09/28/2016 12/29/2016 Inactive Ventolin HFA 90 mcg/actuation aerosol inhaler RxNorm: 405570 INHALE TWO PUFFS BY MOUTH EVERY 4 HOURS NEEDED 09/22/2016 10/23/2016 Inactive Pulmicort 1 mg/2 mL suspension for nebulization RxNorm: 6168 19 1 Unit Dose INH BID Dx: COPD (J44.9) 09/10/2016 08/16/2017 Inactive Pulmicort 1 mg/2 mL suspension for nebulization RxNorm: 6168 19 1 Unit Dose INH BID 09/10/2016 09/09/2016 Inactive Brovana 15 mcg/2 mL solution for nebulization RxNorm: 919347 1 Unit Dose INH BID Dx: COPD (J44.9) 09/10/2016 01/25/2018 Inactive Brovana 15 mcg/2 mL solution for nebulization RxNorm: 604972 1 Unit Dose INH BID 09/10/2016 09/09/2016 Inactive ipratropium-albuterol 0.5 mg-3 mg(2.5 mg base)/3 mL ne bulization soln RxNorm: 5665335 1 Unit Dose INH Q4H as needed Dx: COPD (J44.9) 09/10/2016 0 02/12/2019 Inactive orphenadrine citrate ER 100 mg tablet,extended release RxNor m: 092307 1 Tablet(s) PO BID for muscle spasm--replaces methocarbamol 09/09/2016 Inactive Chantix Continuing Month Box 1 mg tablet RxNorm: 356736 Tablet(s) PO as directed 09/09/2016 10/30/2016 Inactive orphenadrine citrate ER 100 mg tablet,extended release RxNor m: 512973 1 Tablet(s) PO BID for muscle spasm 09/09/2016 09/08/2016 Inactive Spiriva with HandiHaler 18 mcg and inhalation capsules RxNor m: 181114 INHALE THE ENTIRE CONTENTS OF 1 CAPSULE ONCE A DAY USING HANDIHALER 09/01/201605/2017 Inactive Daliresp 500 mcg tablet RxNorm: 5732558 1 Tablet(s) PO QD 08/27/2016 03/01/2017 Inactive prednisone 20 mg tablet RxNorm: 780256 3 Tablet(s) PO T ID for 3 days then 1 po BID for 3 days then one daily for 3 days 08/26/2016 04/28/2017 Inactiv e Wellbutrin XL 300 mg 24 hr tablet, extended release RxNorm: 325606 TAKE ONE TABLET BY MOUTH EVERY MORNING 07/29/2016 10/26/2016 Inactive gabapentin 600 mg tablet RxNorm: 332791 1 Tablet(s) PO BID 06/26/20 16 12/22/2016 Inactive fluoxetine 40 mg capsule RxNorm: 852989 TAKE ONE CAPSULE BY BENOIT TH EVERY MORNING 06/24/2016 11/20/2016 Inactive Duragesic 100 mcg/hr transdermal patch RxNorm: 773105 2 Application TD Q48H for pain 06/05/2016 07/04/2016 Inactive oxycodone 10 mg tablet RxNorm: 4482579 1-2 Tablet(s) PO QID as n eeded for pain 06/05/2016 03/17/2017 Inactive Belladonna-Phenobarbital 48 mg tablet,extended release RxNor m: 2 Tablet(s) PO TID 06/05/2016 01/19/2017 Inactive Premarin 0.45 mg tablet RxNorm: 719806 TAKE ONE TABLET BY MOUTH DAILY 05/27/2016 09/23/2016 Inactive Topamax 100 mg tablet RxNorm: 431779 TAKE ONE TABLET BY MOUTH EVERY NIGHT AT BEDTIME 05/27/2016 09/27/2016 Inactive Synthroid 112 mcg tablet RxNorm: 214135 TAKE ONE TABLET BY MOUT H DAILY 05/27/2016 09/23/2016 Inactive metformin ER 500 mg tablet,extended release 24 hr RxNorm: 86 0975 TAKE ONE TABLET BY MOUTH DAILY 05/27/2016 09/23/2016 Inactive Symbicort 160 mcg-4.5 mcg/actuation HFA aerosol inhaler RxNo rm: 2589185 INHALE TWO PUFFS TWO TIMES A DAY 05/27/2016 10/23/2016 Inactive Ventolin HFA 90 mcg/actuation aerosol inhaler RxNorm: 893740 INHALE TWO PUFFS BY MOUTH EVERY 4 HOURS NEEDED 05/21/2016 07/07/2016 Inactive omeprazole 40 mg capsule,delayed release RxNorm: 390289 1 Capsu le(s) PO QD 05/06/2016 08/03/2016 Inactive metformin ER 500 mg tablet,extended release 24 hr RxNorm: 86 0975 TAKE ONE TABLET BY MOUTH DAILY 04/23/2016 05/22/2016 Inactive methocarbamol 750 mg tablet RxNorm: 463661 2 Tablet(s) PO TID as needed for muscle spasm 04/23/2016 09/08/2016 Inactive Synthroid 112 mcg tablet RxNorm: 532421 TAKE ONE TABLET BY MOUT H DAILY 04/23/2016 05/22/2016 Inactive Spiriva with HandiHaler 18 mcg and inhalation capsules RxNor m: 347885 INHALE THE ENTIRE CONTENTS OF 1 CAPSULE ONCE A DAY USING HANDIHALER 04/09/201608/2016 Inactive Diflucan 100 mg tablet RxNorm: 201143 1 Tablet(s) PO QD 04/08/2016 Inactive doxycycline hyclate 100 mg capsule RxNorm: 2902469 1 Capsule(s) PO BID 04/08/2016 04/17/2016 Inactive doxycycline hyclate 100 mg capsule RxNorm: 7103512 1 Capsule(s) PO BID 04/08/2016 04/07/2016 Inactive Diflucan 100 mg tablet RxNorm: 190272 1 Tablet(s) PO QD 04/08/2016 Inactive ondansetron HCl 4 mg tablet RxNorm: 375194 1 Tablet(s) PO Q4H as needed for nausea and vomiting 04/08/2016 09/22/2017 Inactive gabapentin 600 mg tablet RxNorm: 120548 TAKE ONE TABLET BY MOUT H TWICE A DAY 03/24/2016 06/25/2016 Inactive Synthroid 112 mcg tablet RxNorm: 728076 TAKE ONE TABLET BY MOUT H DAILY 02/25/2016 04/22/2016 Inactive Levaquin 500 mg tablet RxNorm: 323919 1 Tablet(s) PO QD 01/23/2016 Inactive prednisone 20 mg tablet RxNorm: 235420 1 Tablet(s) PO T ID for 3 days then 1 po BID for 3 days then one daily for 3 days 01/23/2016 08/25/2016 Inactiv e [employer] Ultra Test strips RxNorm: TEST BLOOD SUGAR ONCE DAILY 250.00 01/09/2016 11/04/2017 Inactive methocarbamol 750 mg tablet RxNorm: 598586 2 Tablet(s) PO TID as needed for muscle spasm 01/09/2016 04/23/2016 Inactive lactulose 10 gram/15 mL oral solution RxNorm: 447790 [address](s) PO QD 01/09/2016 09/22/2017 Inactive TAKE 1 TABLESPOON BY MOUTH ONCE DAILY metformin ER 500 mg tablet,extended release 24 hr RxNorm: 86 0975 1 Tablet(s) PO QD 12/26/2015 04/22/2016 Inactive fluoxetine 20 mg capsule RxNorm: 572659 1 Capsule(s) PO QD 12/23/19 16 06/19/2016 Inactive Premarin 0.45 mg tablet RxNorm: 107334 TAKE ONE TABLET BY MOUTH DAILY 12/23/2015 05/20/2016 Inactive fluoxetine 40 mg capsule RxNorm: 701762 1 Capsule(s) PO QD 12/23/19 16 06/19/2016 Inactive TAKE ONE CAPSULE BY MOUTH EV JANKI MORNING azithromycin 500 mg tablet RxNorm: 681851 1 Tablet(s) PO QD 016 12/19/2015 Inactive Zofran 4 mg tablet RxNorm: 010381 1 Tablet(s) PO Q4H prn nausea /vomiting 12/13/2015 03/30/2018 Inactive azithromycin 500 mg tablet RxNorm: 960366 1 Tablet(s) PO QD 016 12/12/2015 Inactive Duragesic 100 mcg/hr transdermal patch RxNorm: 671739 2 Application TD Q48H for pain 12/09/2015 01/07/2016 Inactive oxycodone 10 mg tablet RxNorm: 5103043 1-2 Tablet(s) PO QID as n eeded for pain 12/09/2015 06/04/2016 Inactive Bactroban 2 % topical cream RxNorm: 514833 Application TOP BID 11/2208/25/2016 Inactive doxycycline hyclate 100 mg capsule RxNorm: 5227518 1 Capsule(s) PO BID 12/03/2015 12/12/2015 Inactive Topamax 100 mg tablet RxNorm: 352819 TAKE ONE TABLET BY MOUTH EVERY NIGHT AT BEDTIME 11/25/2015 05/22/2016 Inactive Symbicort 160 mcg-4.5 mcg/actuation HFA aerosol inhaler RxNo rm: 5235146 INHALE TWO PUFFS TWO TIMES A DAY 11/25/2015 05/22/2016 Inactive Synthroid 112 mcg tablet RxNorm: 853869 Tablet(s) TAKE ONE TABLET BY MOUTH DAILY 11/25/2015 02/22/2016 Inactive omeprazole 40 mg capsule,delayed release RxNorm: 746946 1 Capsu le(s) PO QD 11/12/2015 05/05/2016 Inactive oxycodone 10 mg tablet RxNorm: 7008534 1-2 Tablet(s) PO QID as n eeded for pain 11/05/2015 12/08/2015 Inactive Duragesic 100 mcg/hr transdermal patch RxNorm: 403408 2 Application TD Q48H for pain 11/05/2015 12/04/2015 Inactive omeprazole 40 mg capsule,delayed release RxNorm: 380195 1 Capsu le(s) PO QD 10/07/2015 11/11/2015 Inactive Januvia 100 mg tablet RxNorm: 312866 TAKE ONE TABLET BY MOUTH DAILY 09/11/2015 12/25/2015 Inactive Zithromax 500 mg tablet RxNorm: 461327 1 Tablet(s) PO QD 09/10/2015 1 Inactive prednisone 20 mg tablet RxNorm: 388463 1 Tablet(s) PO T ID for 3 days then 1 po BID for 3 days then one daily for 3 days 09/10/2015 08/25/2016 Inactiv e Wellbutrin XL 300 mg 24 hr tablet, extended release RxNorm: 652853 1 Tablet(s) PO QAM 09/10/2015 12/02/2015 Inactive Topamax 100 mg tablet RxNorm: 581742 TAKE ONE TABLET BY MOUTH EVERY NIGHT AT BEDTIME 09/02/2015 11/24/2015 Inactive Synthroid 112 mcg tablet RxNorm: 330953 TAKE ONE TABLET BY MOUT H DAILY 09/02/2015 11/25/2015 Inactive methocarbamol 750 mg tablet RxNorm: 544533 2 Tablet(s) PO TID as needed for muscle spasm 08/15/2015 01/09/2016 Inactive Wellbutrin XL 150 mg 24 hr tablet, extended release RxNorm: 703273 TAKE ONE TABLET BY MOUTH EVERY MORNING 08/13/2015 08/13/2015 Inactive gabapentin 600 mg tablet RxNorm: 775915 1 Tablet(s) PO BID 08/13/20 15 02/08/2016 Inactive Wellbutrin XL 300 mg 24 hr tablet, extended release RxNorm: 090641 1 Tablet(s) PO QAM 08/06/2015 09/09/2015 Inactive Wellbutrin XL 150 mg 24 hr tablet, extended release RxNorm: 653948 1 Tablet(s) PO QAM 07/18/2015 08/05/2015 Inactive prednisone 20 mg tablet RxNorm: 035520 1 Tablet(s) PO BID 07/18/2015 07/22/2015 Inactive doxycycline hyclate 100 mg tablet,delayed release RxNorm: 43 4018 1 Tablet(s) PO BID 07/18/2015 07/27/2015 Inactive pravastatin 40 mg tablet RxNorm: 088444 1 Tablet(s) PO QD NEEDS FASTING LAB 07/15/2015 07/14/2015 Inactive pravastatin 40 mg tablet RxNorm: 082472 1 Tablet(s) PO QD NEEDS FASTING LAB 07/15/2015 01/25/2018 Inactive Ventolin HFA 90 mcg/actuation aerosol inhaler RxNorm: 370427 2 Puff(s) INH Q4H 07/08/2015 07/07/2015 Inactive prn Premarin 0.45 mg tablet RxNorm: 320473 1 Tablet(s) PO QD 07/01/2015 0 12/22/2015 Inactive pravastatin 40 mg tablet RxNorm: 656953 1 Tablet(s) PO QD NEEDS FASTING LAB 06/14/2015 07/15/2015 Inactive Ventolin HFA 90 mcg/actuation aerosol inhaler RxNorm: 7105764 2 Puff(s) INH Q4H 06/06/2015 07/08/2015 Inactive prn albuterol sulfate 2.5 mg/3 mL (0.083 %) solution for n ebulization RxNorm: 469069 1 Unit Dose INH QID 05/30/2015 No Stop Date Active Duragesic 100 mcg/hr transdermal patch RxNorm: 257827 2 Application TD Q48H for pain 04/29/2015 05/28/2015 Inactive gabapentin 600 mg tablet RxNorm: 340295 1 Tablet(s) PO BID 04/11/20 15 08/13/2015 Inactive Onglyza 5 mg tablet RxNorm: 858604 1 Tablet(s) PO QD for blood suga r 04/10/2015 04/15/2015 Inactive [Brand Copay Card: RxBIN:[id number] PCN:CRISTIANA RxGRP:[id number] ID#:[id number]] methocarbamol 750 mg tablet RxNorm: 585113 2 Tablet(s) PO TID as needed for muscle spasm 03/28/2015 08/15/2015 Inactive pravastatin 40 mg tablet RxNorm: 820799 1 Tablet(s) PO QD 03/19/2015 03/18/2015 Inactive pravastatin 40 mg tablet RxNorm: 322748 1 Tablet(s) PO QD 03/19/2015 06/14/2015 Inactive lactulose 10 gram/15 mL oral solution RxNorm: 762818 [address]s) PO QD 03/07/2015 01/09/2016 Inactive TAKE 1 TABLESPOON BY MOUTH ONCE DAILY oxycodone 20 mg tablet RxNorm: 7196679 1 Tablet(s) PO QID as nee ded for pain 03/05/2015 07/08/2015 Inactive Topamax 100 mg tablet RxNorm: 899199 1 Tablet(s) PO QHS TAKE ONE TABLET BY MOUTH AT BEDTIME 02/25/2015 02/12/2019 Inactive metformin ER 500 mg tablet,extended release 24 hr RxNorm: 86 0975 1 Tablet(s) PO QD 02/11/2015 03/04/2015 Inactive take one tablet by mouth every day Daliresp 500 mcg tablet RxNorm: 2981263 1 Tablet(s) PO QD 02/11/2015 08/09/2015 Inactive Endocet 10 mg-325 mg tablet RxNorm: 3053549 1 Tablet(s) PO Q4H as needed for pain 01/23/2015 01/23/2015 Inactive gabapentin 600 mg tablet RxNorm: 233948 1 Tablet(s) PO BID 01/23/20 15 04/11/2015 Inactive methocarbamol 750 mg tablet RxNorm: 837183 2 Tablet(s) PO TID as needed for muscle spasm 01/15/2015 02/13/2015 Inactive fluoxetine 40 mg capsule RxNorm: 624767 1 Capsule(s) PO QD 01/14/20 15 12/23/2015 Inactive TAKE ONE CAPSULE BY MOUTH EV JANKI MORNING fluoxetine 20 mg capsule RxNorm: 764059 1 Capsule(s) PO QD 01/14/20 15 12/23/2015 Inactive Premarin 0.45 mg tablet RxNorm: 555405 1 Tablet(s) PO QD 01/02/2015 0 07/01/2015 Inactive Endocet 10 mg-325 mg tablet RxNorm: 0509792 1-2 Tablet(s) PO Q4H 02/12/2019 Inactive PRN PAIN Duragesic 100 mcg/hr transdermal patch RxNorm: 647805 2 Application TD Q48H for pain 12/25/2014 01/23/2015 Inactive Topamax 100 mg tablet RxNorm: 454174 1 Tablet(s) PO QHS TAKE ONE TABLET BY MOUTH AT BEDTIME 12/25/2014 02/24/2015 Inactive Tudorza Pressair 400 mcg/actuation breath activated RxNorm: 8187375 1 BID INHALE ONE PUFF INTO LUNGS TWO TIMES A DAY 12/17/2014 05/15/2015 Inactive Endocet 10 mg-325 mg tablet RxNorm: 8600286 1-2 Tablet(s) PO Q4H 12/19/2014 Inactive PRN PAIN Duragesic 100 mcg/hr transdermal patch RxNorm: 170050 2 Application TD Q48H for pain 11/20/2014 12/24/2014 Inactive [employer] Ultra Test strips RxNorm: TEST BLOOD SUGAR ONCE DAILY 250.00 11/16/2014 01/08/2016 Inactive omeprazole 40 mg capsule,delayed release RxNorm: 812182 1 Capsu le(s) PO QD 11/13/2014 11/12/2015 Inactive metformin ER 500 mg tablet,extended release 24 hr RxNorm: 86 0975 1 Tablet(s) PO QD 11/12/2014 02/11/2015 Inactive take one tablet by mouth every day Symbicort 160 mcg-4.5 mcg/actuation HFA aerosol inhaler RxNo rm: 3945329 2 Puff(s) INH BID 11/12/2014 03/11/2015 Inactive INHALE 2 PUFFS O RALLY TWO TIMES A DAY gabapentin 800 mg tablet RxNorm: 209578 1 Tablet(s) PO QD TAKE ONE TABLET BY MOUTH ONCE A DAY 10/22/2014 01/01/2015 Inactive Endocet 10 mg-325 mg tablet RxNorm: 2531279 1-2 Tablet(s) PO Q4H 11/15/2014 Inactive PRN PAIN Duragesic 100 mcg/hr transdermal patch RxNorm: 966243 2 Application TD Q48H for pain 10/17/2014 11/19/2014 Inactive gabapentin 800 mg tablet RxNorm: 294504 1 Tablet(s) PO QD TAKE ONE TABLET BY MOUTH ONCE A DAY 10/04/2014 10/21/2014 Inactive Premarin 0.9 mg tablet RxNorm: 539708 1 Tablet(s) PO QD TAKE ONE TABLET BY MOUTH ONCE A DAY 10/04/2014 01/01/2015 Inactive Spiriva with HandiHaler 18 mcg & inhalation capsules RxNorm: 375116 1 Capsule(s) INH QD 10/03/2014 04/30/2015 Inactive Levaquin 500 mg tablet RxNorm: 522475 1 Tablet(s) PO QD 10/03/2014 Inactive prednisone 20 mg tablet RxNorm: 251595 1 Tablet(s) PO QD 10/03/2014 1 12/09/2013 Inactive Duragesic 100 mcg/hr transdermal patch RxNorm: 744362 2 Application TD Q48H for pain 09/18/2014 10/16/2014 Inactive Endocet 10 mg-325 mg tablet RxNorm: 6845422 1-2 Tablet(s) PO Q4H 10/16/2014 Inactive PRN PAIN Synthroid 112 mcg tablet RxNorm: 814883 1 Tablet(s) QD 09/10/2014 Inactive Synthroid 112 mcg tablet RxNorm: 367072 TAKE ONE TABLET BY MOUTH ONE TIME A DAY. NEEDS LABS 09/10/2014 02/06/2015 Inactive omeprazole 40 mg capsule,delayed release RxNorm: 490628 1 Capsu le(s) PO QD 09/03/2014 11/13/2014 Inactive omeprazole 40 mg capsule,delayed release RxNorm: 099693 1 Capsu le(s) PO QD 09/03/2014 09/02/2014 Inactive Spiriva with HandiHaler 18 mcg & inhalation capsules RxNorm: 823352 1 Capsule(s) INH QD 08/27/2014 10/02/2014 Inactive gabapentin 600 mg tablet RxNorm: 454632 1 Tablet(s) PO BID 08/27/20 14 10/22/2014 Inactive Endocet 10 mg-325 mg tablet RxNorm: 5085378 1-2 Tablet(s) PO Q4H 09/17/2014 Inactive PRN PAIN fentanyl 100 mcg/hr transdermal patch RxNorm: 607843 1 Unit Dos e TD QD 08/21/2014 09/19/2014 Inactive Daliresp 500 mcg tablet RxNorm: 6851779 1 Tablet(s) PO QD 08/13/2014 02/11/2015 Inactive Synthroid 112 mcg tablet RxNorm: 942446 TAKE ONE TABLET BY MOUTH ONE TIME A DAY. NEEDS LABS 08/10/2014 09/10/2014 Inactive Endocet 10 mg-325 mg tablet RxNorm: 9271427 1-2 Tablet(s) PO Q4H 08/17/2014 Inactive PRN PAIN Duragesic 100 mcg/hr transdermal patch RxNorm: 417653 2 Application TD Q48H for pain 07/19/2014 09/17/2014 Inactive fluoxetine 40 mg capsule RxNorm: 647350 1 Capsule(s) PO QD 07/17/20 14 01/14/2015 Inactive TAKE ONE CAPSULE BY MOUTH EV JANKI MORNING fluoxetine 20 mg capsule RxNorm: 132982 1 Capsule(s) PO QD 07/17/20 14 01/14/2015 Inactive Spiriva with HandiHaler 18 mcg & inhalation capsules RxNorm: 781989 1 Capsule(s) INH QD 07/17/2014 08/26/2014 Inactive INHALE CONTENTS OF 1 CAPSULE(S) WITH HANDIHALER ONCE DAILY Zofran 4 mg tablet RxNorm: 284727 1 Tablet(s) PO Q4H prn nausea 07/25/2014 Inactive Synthroid 112 mcg tablet RxNorm: 952635 1 Tablet(s) PO QD 07/09/2014 07/09/2014 Inactive methocarbamol 750 mg tablet RxNorm: 531922 2 Tablet(s) PO TID as needed for muscle spasm 07/09/2014 09/06/2014 Inactive Synthroid 112 mcg tablet RxNorm: 334547 1 Tablet(s) PO QD - nee d labs 07/09/2014 08/07/2014 Inactive Medrol (Aníbal) 4 mg tablets in a dose pack RxNorm: 516962 6 Tablet(s) PO QD --then as directed 07/03/2014 07/08/2014 Inactive Tudorza Pressair 400 mcg/actuation breath activated RxNorm: 6012691 1 Puff(s) INH BID 07/03/2014 12/17/2014 Inactive cefdinir 300 mg capsule RxNorm: 558699 1 Capsule(s) PO BID 07/03/20 14 07/12/2014 Inactive Topamax 100 mg tablet RxNorm: 707167 Tablet(s) TAKE ONE TABLET BY MOUTH AT BEDTIME 07/02/2014 02/25/2015 Inactive Duragesic 100 mcg/hr transdermal patch RxNorm: 274187 2 Application TD Q48H for pain 06/25/2014 07/18/2014 Inactive Endocet 10 mg-325 mg tablet RxNorm: 4301788 1-2 Tablet(s) PO Q4H 07/18/2014 Inactive PRN PAIN metformin ER 500 mg tablet,extended release 24 hr RxNorm: 86 0975 1 Tablet(s) PO QD Needs labs 06/18/2014 07/01/2014 Inactive take one tablet by mouth every day Duragesic 100 mcg/hr transdermal patch RxNorm: 740427 2 Application TD Q48H for pain 05/22/2014 06/24/2014 Inactive Synthroid 112 mcg tablet RxNorm: 242040 1 Tablet(s) PO QD 05/22/2014 07/09/2014 Inactive Endocet 10 mg-325 mg tablet RxNorm: 0131706 1-2 Tablet(s) PO Q4H 06/20/2014 Inactive PRN PAIN Endocet 10 mg-325 mg tablet RxNorm: 8695353 1-2 Tablet(s) PO Q4H 05/21/2014 Inactive PRN PAIN Duragesic 100 mcg/hr transdermal patch RxNorm: 574893 2 Application TD Q48H for pain 04/25/2014 05/21/2014 Inactive Daliresp 500 mcg tablet RxNorm: 6388059 1 Tablet(s) PO QD 04/24/2014 08/13/2014 Inactive Symbicort 160 mcg-4.5 mcg/actuation HFA aerosol inhaler RxNo rm: 5280150 2 Puff(s) INH BID 04/24/2014 08/21/2014 Inactive INHALE 2 PUFFS O RALLY TWO TIMES A DAY metformin ER 500 mg tablet,extended release 24 hr RxNorm: 86 0975 1 Tablet(s) PO QD 04/24/2014 11/12/2014 Inactive TAKE ONE TABLET BY MOUTH EVERY DAY [AttnRPh:Saving Apply/Adjudicate RxGRP:LDMGRP RxBIN:[id number] RxPCN:2012 PCode:01 ID#:[id number]] Symbicort 160 mcg-4.5 mcg/actuation HFA aerosol inhaler RxNo rm: 3423146 2 Puff(s) INH BID 04/24/2014 11/12/2014 Inactive INHALE 2 PUFFS O RALLY TWO TIMES A DAY Premarin 0.9 mg tablet RxNorm: 108700 1 Tablet(s) PO QD 04/24/2014 Inactive TAKE ONE TABLET BY MOUTH EVERY DAY metformin ER 500 mg tablet,extended release 24 hr RxNorm: 86 0975 1 Tablet(s) PO QD Needs labs 04/24/2014 06/18/2014 Inactive TAKE ONE TABLET BY MOUTH EVERY DAY [AttnRPh:Saving Apply/Adjudicate RxGRP:LDMGRP RxBIN:[id number] RxPCN:2012 PCode:01 ID#:[id number]] gabapentin 800 mg tablet RxNorm: 031752 1 Tablet(s) PO QD 04/24/2014 10/04/2014 Inactive TAKE ONE TABLET BY MOUTH EVERY DAY Topamax 100 mg tablet RxNorm: 757716 1 Tablet(s) PO QHS 04/17/2014 Inactive Topamax 100 mg tablet RxNorm: 467130 TAKE ONE TABLET BY MOUTH A T BEDTIME 04/17/2014 07/01/2014 Inactive Tudorza Pressair 400 mcg/actuation breath activated RxNorm: 9397027 1 Puff(s) INH BID 04/11/2014 07/02/2014 Inactive Duragesic 100 mcg/hr transdermal patch RxNorm: 045231 2 Application TD Q48H for pain 03/27/2014 04/24/2014 Inactive Endocet 10 mg-325 mg tablet RxNorm: 3363058 1-2 Tablet(s) PO Q4H 04/24/2014 Inactive PRN PAIN Robaxin 750 mg tablet RxNorm: 516475 2 Tablet(s) PO TID as need ed for spasm 02/23/2014 03/28/2015 Inactive Duragesic 100 mcg/hr transdermal patch RxNorm: 189789 2 Application TD Q48H for pain 02/23/2014 No Stop Date Active Endocet 10 mg-325 mg tablet RxNorm: 4165662 1-2 Tablet(s) PO Q4H 03/23/2014 Inactive PRN PAIN Synthroid 112 mcg tablet RxNorm: 800343 1 Tablet(s) PO QD TAKE ONE TABLET BY MOUTH EVERY DAY 02/15/2014 05/22/2014 Inactive Zithromax 500 mg tablet RxNorm: 296962 1 Tablet(s) PO QD 01/30/2014 0 02/05/2014 Inactive Diflucan 100 mg tablet RxNorm: 336311 1 Tablet(s) PO QD 01/30/2014 Inactive prednisone 20 mg tablet RxNorm: 090061 1 Tablet(s) PO BID 01/30/2014 02/05/2014 Inactive fluoxetine 40 mg capsule RxNorm: 483093 1 Capsule(s) PO QD 01/23/20 14 07/16/2014 Inactive TAKE ONE CAPSULE BY MOUTH EV JANKI MORNING fluoxetine 40 mg capsule RxNorm: 570042 1 Capsule(s) PO QD 01/23/20 14 07/17/2014 Inactive TAKE ONE CAPSULE BY MOUTH EV JANKI MORNING cefdinir 300 mg capsule RxNorm: 669706 1 Capsule(s) PO BID 01/16/20 14 01/29/2014 Inactive Zithromax 500 mg tablet RxNorm: 855666 1 Tablet(s) PO QD 01/16/2014 0 01/22/2014 Inactive prednisone 20 mg tablet RxNorm: 079558 1 Tablet(s) PO BID 01/16/2014 01/22/2014 Inactive Spiriva with HandiHaler 18 mcg and inhalation capsules RxNor m: 508828 1 Capsule(s) INH QD 12/18/2013 07/17/2014 Inactive INHALE CONTENT S OF 1 CAPSULE(S) WITH HANDIHALER ONCE DAILY fluoxetine 20 mg capsule RxNorm: 875792 1 Capsule(s) PO QD 12/18/19 14 06/15/2014 Inactive Spiriva with HandiHaler 18 mcg & inhalation capsules RxNorm: 514167 1 Capsule(s) INH QD 12/18/2013 06/15/2014 Inactive INHALE CONTENTS OF 1 CAPSULE(S) WITH HANDIHALER ONCE DAILY fluoxetine 20 mg capsule RxNorm: 474799 1 Capsule(s) PO QD 12/18/19 14 07/17/2014 Inactive cefdinir 300 mg capsule RxNorm: 196223 2 Capsule(s) PO QD 12/12/2013 12/21/2013 Inactive Duragesic 100 mcg/hr transdermal patch RxNorm: 454726 2 Application TD Q48H for pain 12/08/2013 12/07/2013 Inactive Topamax 100 mg tablet RxNorm: 396344 1 Tablet(s) PO QHS 12/04/2013 Inactive Endocet 10 mg-325 mg tablet RxNorm: 9833116 1-2 Tablet(s) PO Q4H 12/26/2013 Inactive PRN PAIN Robaxin 750 mg tablet RxNorm: 745871 2 Tablet(s) PO TID as need ed for spasm 11/07/2013 01/05/2014 Inactive gabapentin 800 mg tablet RxNorm: 385447 1 Tablet(s) PO QD 10/16/2013 04/24/2014 Inactive TAKE ONE TABLET BY MOUTH EVERY DAY Symbicort 160 mcg-4.5 mcg/actuation HFA aerosol inhaler RxNo rm: 5265734 2 Puff(s) INH BID 10/16/2013 04/24/2014 Inactive INHALE 2 PUFFS O RALLY TWO TIMES A DAY Premarin 0.9 mg tablet RxNorm: 377144 1 Tablet(s) PO QD 10/16/2013 Inactive TAKE ONE TABLET BY MOUTH EVERY DAY metformin ER 500 mg tablet,extended release 24 hr RxNorm: 86 0975 1 Tablet(s) PO QD 10/16/2013 04/24/2014 Inactive TAKE ONE TABLET BY MOUTH EVERY DAY Daliresp 500 mcg tablet RxNorm: 4337107 1 Tablet(s) PO QD 10/16/2013 04/24/2014 Inactive Robaxin 750 mg tablet RxNorm: 498565 2 Tablet(s) PO TID as need ed for spasm 10/10/2013 11/06/2013 Inactive Duragesic 100 mcg/hr transdermal patch RxNorm: 457317 2 Application TD Q48H for pain 10/09/2013 No Stop Date Active Soma 350 mg tablet RxNorm: 191366 1 Tablet(s) PO TID 09/27/201310/09 Inactive TAKE ONE TABLET BY MOUTH THREE TIMES A D AY lactulose 10 gram/15 mL oral solution RxNorm: 563380 [address](s) PO QD 09/13/2013 03/07/2015 Inactive TAKE 1 TABLESPOON BY MOUTH ONCE DAILY Duragesic 100 mcg/hr transdermal patch RxNorm: 707826 2 Application TD Q48H for pain 09/06/2013 No Stop Date Active Endocet 10 mg-325 mg tablet RxNorm: 3445803 1-2 Tablet(s) PO Q4H 09/27/2013 Inactive PRN PAIN lancets 28 gauge RxNorm: Miscellaneous As needed for blo od glucose sticks 08/24/2013 No Stop Date Active 16.2 mg-0.1037 mg-0.0194 mg tablet RxNorm: 5430692 Tablet(s) PO PRN for gas and cramping 08/24/2013 01/19/2017 Inactive TAKE TWO TABLET S BY MOUTH THREE TIMES A DAY NEEDED FOR GAS AND CRAMPING Topamax 100 mg tablet RxNorm: 734595 1 Tablet(s) PO QHS 07/31/2013 Inactive Diflucan 100 mg tablet RxNorm: 821173 1 Tablet(s) PO QD 07/27/2013 Inactive cefdinir 300 mg capsule RxNorm: 239231 1 Capsule(s) PO BID 07/26/20 13 08/08/2013 Inactive Daliresp 500 mcg tablet RxNorm: 8223353 1 Tablet(s) PO QD 07/25/2013 10/15/2013 Inactive fluoxetine 40 mg capsule RxNorm: 150907 1 Capsule(s) PO QD 07/25/20 13 01/22/2014 Inactive TAKE ONE CAPSULE BY MOUTH EV JANKI MORNING Senokot-S 8.6 mg-50 mg tablet RxNorm: 8592498 1 Tablet(s) PO BID 10/25/2013 Inactive doxycycline hyclate 100 mg capsule RxNorm: 2212248 1 Capsule(s) PO BID 06/28/2013 07/07/2013 Inactive prednisone 20 mg tablet RxNorm: 733837 1 Tablet(s) PO BID 06/28/2013 07/04/2013 Inactive Zofran 4 mg tablet RxNorm: 531212 1 Tablet(s) PO Q4H prn nausea 03/201307/05/2013 Inactive Spiriva with HandiHaler 18 mcg & inhalation capsules RxNorm: 791974 1 Capsule(s) INH QD 06/26/2013 12/18/2013 Inactive INHALE CONTENTS OF 1 CAPSULE(S) WITH HANDIHALER ONCE DAILY Synthroid 112 mcg tablet RxNorm: 968961 1 Tablet(s) PO QD TAKE ONE TABLET BY MOUTH EVERY DAY 06/19/2013 02/15/2014 Inactive fluoxetine 20 mg capsule RxNorm: 021246 1 Capsule(s) PO QD 06/19/20 13 12/18/2013 Inactive Ventolin HFA 90 mcg/actuation Aerosol Inhaler RxNorm: 7778483 2 Puff(s) INH Q4H 06/05/2013 No Stop Date Active prn Soma 350 mg tablet RxNorm: 904440 1 Tablet(s) PO TID 06/05/201307/04 Inactive TAKE ONE TABLET BY MOUTH THREE TIMES A D AY prednisone 20 mg tablet RxNorm: 033178 1 Tablet(s) PO QD 05/31/2013 0 06/06/2013 Inactive Topamax 100 mg tablet RxNorm: 986604 1 Tablet(s) PO QHS 05/22/2013 Inactive Levaquin 500 mg tablet RxNorm: 216547 1 Tablet(s) PO QD 05/03/2013 Inactive Diflucan 100 mg tablet RxNorm: 394178 1 Tablet(s) PO QD 05/03/2013 Inactive Daliresp 500 mcg tablet RxNorm: 7495318 1 Tablet(s) PO QD 05/01/2013 07/24/2013 Inactive Daliresp 500 mcg tablet RxNorm: 8315330 1 Tablet(s) PO QD 05/01/2013 04/30/2013 Inactive gabapentin 800 mg tablet RxNorm: 844726 1 Tablet(s) PO QD 04/10/2013 10/06/2013 Inactive TAKE ONE TABLET BY MOUTH EVERY DAY metformin ER 500 mg tablet,extended release 24 hr RxNorm: 86 0977 1 Tablet(s) PO QD 04/10/2013 10/06/2013 Inactive TAKE ONE TABLET BY MOUTH EVERY DAY Premarin 0.9 mg tablet RxNorm: 542443 1 Tablet(s) PO QD 04/10/2013 Inactive TAKE ONE TABLET BY MOUTH EVERY DAY Symbicort 160 mcg-4.5 mcg/actuation HFA aerosol inhaler RxNo rm: 0122565 2 Puff(s) INH BID 04/10/2013 10/06/2013 Inactive INHALE 2 PUFFS O RALLY TWO TIMES A DAY Synthroid 112 mcg tablet RxNorm: 139817 1 Tablet(s) PO QD TAKE ONE TABLET BY MOUTH EVERY DAY 04/10/2013 06/18/2013 Inactive Ventolin HFA 90 mcg/actuation Aerosol Inhaler RxNorm: 592959 2 Puff(s) INH Q4H 04/10/2013 No Stop Date Active prn fentanyl 100 mcg/hr transdermal patch RxNorm: 634351 1 Unit Dos e TD QD 04/03/2013 05/02/2013 Inactive Endocet 10 mg-325 mg tablet RxNorm: 0993391 1-2 Tablet(s) PO Q4H 05/02/2013 Inactive PRN PAIN Topamax 100 mg tablet RxNorm: 299971 1 Tablet(s) PO QHS 03/13/2013 Inactive Reglan 10 mg tablet RxNorm: 719976 1 Tablet(s) PO QID b efore meals and at bedtime 03/13/2013 04/09/2015 Inactive fluoxetine 20 mg capsule RxNorm: 239668 1 Capsule(s) PO QD 02/28/20 13 05/27/2013 Inactive Ventolin HFA 90 mcg/actuation Aerosol Inhaler RxNorm: 251710 2 Puff(s) INH Q4H 02/13/2013 No Stop Date Active prn fluoxetine 40 mg capsule RxNorm: 865176 1 Capsule(s) PO QD 01/31/20 13 07/24/2013 Inactive TAKE ONE CAPSULE BY MOUTH EV JANKI MORNING Soma 350 mg tablet RxNorm: 280119 1 Tablet(s) PO TID 01/20/201302/18 Inactive TAKE ONE TABLET BY MOUTH THREE TIMES A D AY Endocet 10 mg-325 mg tablet RxNorm: 1065163 1-2 Tablet(s) PO Q4H 02/06/2013 Inactive PRN PAIN MS Contin 200 mg tablet,extended release RxNorm: 078611 1 Table t(s) PO BID 01/18/2013 02/06/2013 Inactive Ventolin HFA 90 mcg/actuation Aerosol Inhaler RxNorm: 667300 2 Puff(s) INH Q4H 01/04/2013 No Stop Date Active prn Spiriva with HandiHaler 18 mcg & inhalation capsules RxNorm: 168884 1 Capsule(s) INH QD 12/29/2012 06/25/2013 Inactive INHALE CONTENTS OF 1 CAPSULE(S) WITH HANDIHALER ONCE DAILY Spiriva with HandiHaler 18 mcg & inhalation capsules RxNorm: 491545 1 Capsule(s) INH QD 12/26/2012 12/28/2012 Inactive INHALE CONTENTS OF 1 CAPSULE(S) WITH HANDIHALER ONCE DAILY Synthroid 112 mcg tablet RxNorm: 689357 Tablet(s) PO TA KE ONE TABLET BY MOUTH EVERY DAY 12/26/2012 04/09/2013 Inactive Endocet 10 mg-325 mg tablet RxNorm: 9259135 1-2 Tablet(s) PO Q4H 01/17/2013 Inactive PRN PAIN MS Contin 200 mg tablet,extended release RxNorm: 052596 1 Table t(s) PO BID 12/21/2012 01/17/2013 Inactive fluoxetine 20 mg capsule RxNorm: 156654 1 Capsule(s) PO QD 12/06/19 13 02/26/2013 Inactive Synthroid 112 mcg tablet RxNorm: 427791 1 Tablet(s) PO QD 12/06/2012 02/12/2019 Inactive TAKE ONE TABLET BY MOUTH EVERY DAY Ventolin HFA 90 mcg/actuation Aerosol Inhaler RxNorm: 500451 2 Puff(s) INH Q4H 12/06/2012 No Stop Date Active prn Reglan 10 mg tablet RxNorm: 650599 1 Tablet(s) PO QID b efore meals and at bedtime 11/24/2012 03/12/2013 Inactive Topamax 100 mg tablet RxNorm: 070988 1 Tablet(s) PO QHS 11/16/2012 Inactive Ventolin HFA 90 mcg/actuation Aerosol Inhaler RxNorm: 484079 2 Puff(s) INH Q4H 11/09/2012 No Stop Date Active prn gabapentin 800 mg tablet RxNorm: 747216 1 Tablet(s) PO QD 10/27/2012 04/09/2013 Inactive TAKE ONE TABLET BY MOUTH EVERY DAY metformin ER 500 mg tablet,extended release 24 hr RxNorm: 86 0977 1 Tablet(s) PO QD 10/27/2012 04/09/2013 Inactive TAKE ONE TABLET BY MOUTH EVERY DAY Symbicort 160 mcg-4.5 mcg/actuation HFA Aerosol Inhaler RxNo rm: 2724175 2 Puff(s) INH BID 10/27/2012 04/09/2013 Inactive INHALE 2 PUFFS O RALLY TWO TIMES A DAY Premarin 0.9 mg tablet RxNorm: 221530 1 Tablet(s) PO QD 10/27/2012 Inactive TAKE ONE TABLET BY MOUTH EVERY DAY Endocet 10 mg-325 mg tablet RxNorm: 7165952 1-2 Tablet(s) PO Q4H 11/24/2012 Inactive PRN PAIN MS Contin 200 mg tablet,extended release RxNorm: 968790 1 Table t(s) PO BID 10/26/2012 11/24/2012 Inactive Soma 350 mg tablet RxNorm: 183847 1 Tablet(s) PO TID 10/04/201211/02 Inactive TAKE ONE TABLET BY MOUTH THREE TIMES A D AY Ventolin HFA 90 mcg/actuation Aerosol Inhaler RxNorm: 050252 2 Puff(s) INH Q4H 10/03/2012 No Stop Date Active prn Daliresp 500 mcg tablet RxNorm: 3310976 1 Tablet(s) PO QD 09/28/2012 09/27/2012 Inactive Daliresp 500 mcg tablet RxNorm: 5609969 1 Tablet(s) PO QD 09/28/2012 04/25/2013 Inactive fluoxetine 20 mg capsule RxNorm: 578340 1 Capsule(s) PO QD 09/05/2012/06/2012 Inactive Topamax 50 mg tablet RxNorm: 980139 Tablet(s) PO for 1w k then 1 po q HS for 1wk then 2 po q HS 08/29/2012 09/27/2012 Inactive TAKE 1/2 TABLET BY MOUTH AT BEDTIME FOR 1 WEEK, THEN 1 TABLET AT BEDTIME FOR 1 WEEK, THEN 2 TABLETS AT BEDTIME Topamax 100 mg tablet RxNorm: 205696 1 Tablet(s) PO QHS 08/29/2012 Inactive Ventolin HFA 90 mcg/actuation Aerosol Inhaler RxNorm: 500657 2 Puff(s) INH Q4H 08/19/2012 No Stop Date Active prn Ventolin HFA 90 mcg/actuation Aerosol Inhaler RxNorm: 910041 2 Puff(s) INH Q4H 08/15/2012 No Stop Date Active prn Synthroid 112 mcg tablet RxNorm: 819600 1 Tablet(s) PO QD 08/10/2012 11/07/2012 Inactive TAKE ONE TABLET BY MOUTH EVERY DAY Synthroid 112 mcg tablet RxNorm: 713106 1 Tablet(s) PO QD 08/01/2012 08/09/2012 Inactive TAKE ONE TABLET BY MOUTH EVERY DAY Reglan 10 mg tablet RxNorm: 270313 1 Tablet(s) PO QID b efore meals and at bedtime 08/01/2012 11/23/2012 Inactive fluoxetine 40 mg capsule RxNorm: 340009 1 Capsule(s) PO QD 08/01/20 12 01/27/2013 Inactive TAKE ONE CAPSULE BY MOUTH EV JANKI MORNING Ventolin HFA 90 mcg/actuation Aerosol Inhaler RxNorm: 767778 2 Puff(s) INH Q4H 08/01/2012 No Stop Date Active prn Soma 350 mg tablet RxNorm: 387809 1 Tablet(s) PO TID 07/20/201208/18 Inactive TAKE ONE TABLET BY MOUTH THREE TIMES A D AY Spiriva with HandiHaler 18 mcg & inhalation capsules RxNorm: 048370 1 Capsule(s) INH 07/01/2012 12/25/2012 Inactive INHALE CONTENTS OF 1 CAPSULE(S) WITH HANDIHALER ONCE DAILY Zithromax 250 mg Tab RxNorm: 985496 2 Tablet(s) PO QD 06/28/201206/22 Inactive MS Contin 200 mg tablet,extended release RxNorm: 363011 1 Table t(s) PO BID 06/28/2012 07/27/2012 Inactive Endocet 10 mg-325 mg tablet RxNorm: 4796359 1-2 Tablet(s) PO Q4H 07/27/2012 Inactive PRN PAIN Topamax 100 mg tablet RxNorm: 910330 1 Tablet(s) PO QHS 06/28/2012 Inactive 16.2 mg-0.1037 mg-0.0194 mg tablet RxNorm: 7290901 Tablet(s) PO PRN for gas and cramping 06/08/2012 08/23/2013 Inactive TAKE TWO TABLET S BY MOUTH THREE TIMES A DAY NEEDED FOR GAS AND CRAMPING Ventolin HFA 90 mcg/actuation Aerosol Inhaler RxNorm: 031668 2 Puff(s) INH Q4H 05/23/2012 No Stop Date Active prn Ventolin HFA 90 mcg/actuation Aerosol Inhaler RxNorm: 879071 2 Puff(s) INH Q4H 05/11/2012 No Stop Date Active prn Synthroid 112 mcg tablet RxNorm: 752412 1 Tablet(s) PO QD 05/09/2012 07/31/2012 Inactive TAKE ONE TABLET BY MOUTH EVERY DAY gabapentin 800 mg tablet RxNorm: 930249 1 Tablet(s) PO QD 05/09/2012 10/26/2012 Inactive TAKE ONE TABLET BY MOUTH EVERY DAY fluoxetine 40 mg capsule RxNorm: 743951 1 Capsule(s) PO QD 05/09/2007/31/2012 Inactive TAKE ONE CAPSULE BY MOUTH EV JANKI MORNING metformin ER 500 mg tablet,extended release 24 hr RxNorm: 86 0977 1 Tablet(s) PO QD 05/09/2012 10/26/2012 Inactive TAKE ONE TABLET BY MOUTH EVERY DAY Premarin 0.9 mg tablet RxNorm: 406442 1 Tablet(s) PO QD 05/09/2012 Inactive TAKE ONE TABLET BY MOUTH EVERY DAY Symbicort 160 mcg-4.5 mcg/actuation HFA Aerosol Inhaler RxNo rm: 3734936 2 Puff(s) INH BID 05/09/2012 10/26/2012 Inactive INHALE 2 PUFFS O RALLY TWO TIMES A DAY Endocet 10 mg-325 mg Tab RxNorm: 1650974 1-2 Tablet(s) PO Q4H 04/2705/26/2012 Inactive PRN PAIN MS Contin 200 mg Tab RxNorm: 398083 1 Tablet(s) PO BID 04/26/201202/2012 Inactive Ventolin HFA 90 mcg/actuation Aerosol Inhaler RxNorm: 461468 2 Puff(s) INH Q4H 04/25/2012 05/10/2012 Inactive prn Soma 350 mg tablet RxNorm: 370372 2 Tablet(s) PO TID 04/19/201207/19 Inactive TAKE ONE TABLET BY MOUTH THREE TIMES A D AY Ventolin HFA 90 mcg/actuation Aerosol Inhaler RxNorm: 937848 2 Puff(s) INH Q4H 04/12/2012 04/24/2012 Inactive prn Reglan 10 mg tablet RxNorm: 177666 1 Tablet(s) PO QID b efore meals and at bedtime 04/11/2012 07/31/2012 Inactive MS Contin 200 mg Tab RxNorm: 290419 1 Tablet(s) PO BID 03/30/201202/2012 Inactive Endocet 10 mg-325 mg Tab RxNorm: 3478124 1-2 Tablet(s) PO Q4H 03/3004/26/2012 Inactive PRN PAIN MS Contin 200 mg Tab RxNorm: 887700 1 Tablet(s) PO BID 03/02/201206/2012 Inactive Endocet 10 mg-325 mg Tab RxNorm: 3860704 1-2 Tablet(s) PO Q4H 03/0203/29/2012 Inactive PRN PAIN Daliresp 500 mcg tablet RxNorm: 6527105 1 Tablet(s) PO QD 03/01/2012 09/28/2012 Inactive MS Contin 200 mg Tab RxNorm: 445529 1 Tablet(s) PO BID 02/02/201208/2012 Inactive Endocet 10 mg-325 mg Tab RxNorm: 8074301 1-2 Tablet(s) PO Q4H 02/0103/01/2012 Inactive PRN PAIN fluoxetine 40 mg capsule RxNorm: 197486 1 Capsule(s) PO QD 02/02/2008/01/2012 Inactive TAKE ONE CAPSULE BY MOUTH EV JANKI MORNING Synthroid 112 mcg Tab RxNorm: 331706 1 Tablet(s) PO QD 01/18/2012 Inactive TAKE ONE TABLET BY MOUTH EVERY DAY lactulose 10 gram/15 mL oral solution RxNorm: 096773 [address]s) PO QD 01/18/2012 No Stop Date Active TAKE 1 TABLESPOON BY MOUTH ONCE DAILY Ventolin HFA 90 mcg/actuation Aerosol Inhaler RxNorm: 114225 2 Puff(s) INH Q4H 01/18/2012 04/11/2012 Inactive prn MS Contin 200 mg Tab RxNorm: 261996 1 Tablet(s) PO BID 01/05/201210/2012 Inactive Endocet 10 mg-325 mg Tab RxNorm: 6274461 1-2 Tablet(s) PO Q4H 01/0502/01/2012 Inactive PRN PAIN ProAir HFA 90 mcg/Actuation Aerosol Inhaler RxNorm: 783591 2 Pu ff(s) INH Q4H 12/21/2011 No Stop Date Active prn for wheezing or shortness of breath Spiriva with HandiHaler 18 mcg & inhalation Caps RxNorm: 580 261 1 Capsule(s) INH 12/21/2011 06/30/2012 Inactive INHALE CONTENTS OF 1 CAPSULE(S) WITH HANDIHALER ONCE DAILY Reglan 10 mg Tab RxNorm: 371149 1 Tablet(s) PO QID before meals and at bedtime 12/21/2011 04/10/2012 Inactive Synthroid 112 mcg Tab RxNorm: 871268 1 Tablet(s) PO QD 12/21/2011 Inactive TAKE ONE TABLET BY MOUTH EVERY DAY Endocet 10 mg-325 mg Tab RxNorm: 8616645 1-2 Tablet(s) PO Q4H 11/2512/24/2011 Inactive PRN PAIN MS Contin 200 mg Tab RxNorm: 595500 1 Tablet(s) PO BID 11/25/201112/2011 Inactive lactulose 10 gram/15 mL Oral Soln RxNorm: 848094 Milliliter(s) PO 1 No Stop Date Active TAKE 1 TABLESPOON BY MOUTH O NCE DAILY lactulose 10 gram/15 mL Oral Soln RxNorm: 278514 Milliliter(s) PO 1 12/12/2010 11/20/2011 Inactive TAKE 1 TABLESPOON BY MOUTH O NCE DAILY Premarin 0.9 mg Tab RxNorm: 264750 1 Tablet(s) PO QD 10/12/201105/08 Inactive TAKE ONE TABLET BY MOUTH EVERY DAY fluoxetine 20 mg capsule RxNorm: 339831 1 Capsule(s) PO QD 10/12/2009/05/2012 Inactive TAKE ONE CAPSULE BY MOUTH EV JANKI DAY Synthroid 112 mcg Tab RxNorm: 647402 1 Tablet(s) PO QD 10/12/2011 Inactive TAKE ONE TABLET BY MOUTH EVERY DAY metformin ER 500 mg 24 hr Tab RxNorm: 427056 1 Tablet(s) PO QD 09/2311/10/2011 Inactive TAKE ONE TABLET BY MOUTH GLYNN RY DAY Synthroid 112 mcg Tab RxNorm: 298754 1 Tablet(s) PO QD 10/12/2011 Inactive TAKE ONE TABLET BY MOUTH EVERY DAY metformin ER 500 mg 24 hr Tab RxNorm: 959673 1 Tablet(s) PO QD 09/2310/11/2011 Inactive TAKE ONE TABLET BY MOUTH GLYNN Prevacid 30 mg Cap RxNorm: 894049 Capsule(s) PO 10/12/2011 01/25/2012 Inactive TAKE ONE CAPSULE BY MOUTH EVERY DAY Symbicort 160 mcg-4.5 mcg/actuation HFA Aerosol Inhaler RxNo rm: 3984918 2 Puff(s) INH BID 10/12/2011 05/08/2012 Inactive INHALE 2 PUFFS O RALLY TWO TIMES A DAY gabapentin 800 mg Tab RxNorm: 105637 1 Tablet(s) PO QD 10/12/2011 Inactive TAKE ONE TABLET BY MOUTH EVERY DAY MS Contin 200 mg Tab RxNorm: 071547 1 Tablet(s) PO BID 09/23/201111/2010 Inactive Endocet 10 mg-325 mg Tab RxNorm: 3505725 1-2 Tablet(s) PO Q4H 09/2310/22/2011 Inactive PRN PAIN Endocet 10 mg-325 mg Tab RxNorm: 8325949 1-2 Tablet(s) PO Q4H 08/2109/19/2011 Inactive PRN PAIN MS Contin 200 mg Tab RxNorm: 238208 1 Tablet(s) PO BID 08/21/2011 Inactive Diflucan 100 mg Tab RxNorm: 918093 1 Tablet(s) PO QD 08/10/201108/16 Inactive cefdinir 300 mg Cap RxNorm: 558831 2 Capsule(s) PO QD 08/10/201107/24 Inactive Reglan 10 mg Tab RxNorm: 301883 1 Tablet(s) PO AC & HS 07/15/2011 Inactive Endocet 10 mg-325 mg Tab RxNorm: 8026970 1-2 Tablet(s) PO Q4H 07/1508/13/2011 Inactive PRN PAIN One Touch Ultra Test strips RxNorm: Miscellaneous BID 06/11/2011 1 01/16/2014 Inactive TEST TWO TIMES A DAY lactulose 10 gram/15 mL Oral Soln RxNorm: 451116 Milliliter(s) PO 0 06/10/2011 10/11/2011 Inactive TAKE 1 TABLESPOON BY MOUTH O NCE DAILY Chantix Continuing Month Aníbal 1 mg Tab RxNorm: 015034 Tablet(s) PO 0 06/10/2011 11/02/2011 Inactive TAKE DIRECTED - PER PACK[employer] GE INSTRUCTIONS fluoxetine 40 mg Cap RxNorm: 170397 Capsule(s) PO 06/10/2011 02/02/20 Inactive TAKE ONE CAPSULE BY MOUTH EVERY MORNING Chantix Continuing Month Aníbal 1 mg Tab RxNorm: 093804 Ta blet(s) PO TAKE DIRECTED - PER PACKAGE INSTRUCTIONS 05/13/2011 06/09/2011 Inactive Soma 350 mg Tab RxNorm: 982538 Tablet(s) PO TAKE ON E TABLET BY MOUTH THREE TIMES A DAY 05/13/2011 04/18/2012 Inactive Chantix Continuing Month Aníbal 1 mg Tab RxNorm: 428070 Ta blet(s) PO as directed per package instructions. 04/22/2011 05/12/2011 Inactive Symbicort 160 mcg-4.5 mcg/Actuation HFA Aerosol Inhaler RxNo rm: 6984169 HFA Aerosol Inhaler INH INHALE 2 PUFFS ORALLY TWO TIMES A DAY 04/13/2011 Inactive Synthroid 112 mcg Tab RxNorm: 501148 Tablet(s) PO TAKE ONE TABLET BY MOUTH EVERY DAY 04/13/2011 10/12/2011 Inactive Premarin 0.9 mg Tab RxNorm: 146023 Tablet(s) PO TAKE ON E TABLET BY MOUTH EVERY DAY 04/13/2011 10/12/2011 Inactive gabapentin 800 mg Tab RxNorm: 924207 Tablet(s) PO TAKE ONE TABLET BY MOUTH EVERY DAY 04/13/2011 10/12/2011 Inactive Prevacid 30 mg Cap RxNorm: 140116 1 Capsule(s) PO QD 04/13/201110/11 Inactive Spiriva with HandiHaler 18 mcg & inhalation Caps RxNorm: 580 261 Capsule(s) INH INHALE CONTENTS OF 1 CAPSULE(S) WITH HANDIHALER ONCE DAILY 04/13/2011 12/21/2011 Inactive metformin ER 500 mg 24 hr Tab RxNorm: 303602 Tablet(s) PO TAKE ONE TABLET BY MOUTH EVERY DAY 04/13/2011 10/12/2011 Inactive Soma 350 mg Tab RxNorm: 006261 1 Tablet(s) PO QID 03/30/2011 02/13/20 19 Inactive fluoxetine 20 mg Cap RxNorm: 938917 Capsule(s) PO TAKE ONE CAPSULE BY MOUTH EVERY DAY 03/25/2011 10/12/2011 Inactive cefdinir 300 mg Cap RxNorm: 390603 2 Capsule(s) PO QD 03/19/201105/2011 Inactive 16.2 mg-0.1037 mg-0.0194 mg Tab RxNorm: 7769983 2 Tablet(s) PO TID PRN for gas and cramping 03/16/2011 07/13/2011 Inactive Soma 350 mg Tab RxNorm: 463363 2 Tablet(s) PO TID 03/16/2011 03/29/20 11 Inactive Chantix Starting Month Aníbal 0.5 mg (11)-1 mg (3x14) Tab s in a Dose Pack RxNorm: 149979 Tablet(s) PO as directed 03/02/2011 No Stop Date Active diazepam 10 mg Tab RxNorm: 189682 1 Tablet(s) PO BID 02/10/201101/19 Inactive Zofran 4 mg tablet RxNorm: 790356 1 Tablet(s) PO Q4H prn nausea 02/16/2011 Inactive Diflucan 100 mg Tab RxNorm: 271005 1 Tablet(s) PO QD 01/18/201101/24 Inactive Premarin 0.625 mg/g Vaginal Cream RxNorm: 843872 VAG In sert 1gm vaginally at bedtime 3 times weekly 01/18/2011 02/12/2019 Inactive loratadine 10 mg Tab RxNorm: 7302539 1 Tablet(s) PO QD 12/17/201003/2012 Inactive Spiriva with HandiHaler 18 mcg & inhalation Caps RxNorm: 580 261 1 Capsule(s) INH QD 12/17/2010 04/12/2011 Inactive Diflucan 100 mg Tab RxNorm: 207381 1 Tablet(s) PO QD 12/17/201012/23 Inactive diazepam 10 mg Tab RxNorm: 949292 1 Tablet(s) PO BID and PRN 201002/12/2019 Inactive One Touch Ultra Test Strips RxNorm: InVt BID Zainab t blood sugar at least twice daily. 11/11/2010 06/11/2011 Inactive fluoxetine 40 mg Cap RxNorm: 845544 1 Capsule(s) PO QAM 11/11/2010 Inactive diazepam 10 mg Tab RxNorm: 731050 1 Tablet(s) PO BID and PRN 200911/12/2010 Inactive Bactrim DS 800 mg-160 mg Tab RxNorm: 635525 1 Tablet(s) PO BID 09/2210/15/2010 Inactive fluoxetine 20 mg Cap RxNorm: 492173 1 Capsule(s) PO QD 10/02/201008/2011 Inactive Bactrim DS 800 mg-160 mg Tab RxNorm: 091644 1 Tablet(s) PO BID 01/201010/03/2010 Inactive Zofran 4 mg Tab RxNorm: 939827 1 Tablet(s) PO Q4H prn nausea 200910/16/2010 Inactive 16.2 mg-0.1037 mg-0.0194 mg Tab RxNorm: 5314518 2 Tablet(s) PO TID PRN for gas and cramping 09/17/2010 10/21/2010 Inactive Gabapentin 800 mg Tab RxNorm: 399383 1 Tablet(s) PO QD 09/16/2010 Inactive ProAir HFA 90 mcg/Actuation Aerosol Inhaler RxNorm: 738949 2 Puff(s) INH Q4H prn shortness of breath 09/15/2010 12/13/2010 Inactive gabapentin 800 mg Tab RxNorm: 974578 1 Tablet(s) PO QD 09/15/2010 Inactive Prevacid 30 mg Cap RxNorm: 512718 1 Capsule(s) PO QD 09/15/201004/12 Inactive loratadine 10 mg Tab RxNorm: 4360470 1 Tablet(s) PO QD 09/15/2010 Inactive Premarin 0.9 mg Tab RxNorm: 413688 1 Tablet(s) PO QD 09/15/201004/12 Inactive Synthroid 112 mcg Tab RxNorm: 094291 1 Tablet(s) PO QD 09/15/2010 Inactive metformin ER 500 mg 24 hr Tab RxNorm: 484805 1 Tablet(s) PO QD 08/2304/12/2011 Inactive Symbicort 160 mcg-4.5 mcg/Actuation Inhalation HFA Aer osol Inhaler RxNorm: 5039106 2 Puff(s) INH BID 09/15/2010 04/12/2011 Inactive diazepam 10 mg Tab RxNorm: 407278 1 Tablet(s) PO BID and PRN 200910/13/2010 Inactive Phentermine 37.5 mg Cap RxNorm: 884101 1 Capsule(s) PO QD 09/02/2010 11/02/2011 Inactive ProAir HFA 90 mcg/Actuation Aerosol Inhaler RxNorm: 788336 2 Puff(s) INH Q4H prn shortness of breath 08/07/2010 No Stop Date Active Premarin 0.9 mg Tab RxNorm: 725506 1 Tablet(s) PO QD 08/07/201009/14 Inactive Loratadine 10 mg Tab RxNorm: 3605591 1 Tablet(s) PO QD 08/07/2010 Inactive Lactulose 10 gram/15 mL Oral Soln RxNorm: 205298 1 Unit Dose PO QD 08/07/2010 02/12/2019 Inactive Zofran 4 mg Tab RxNorm: 497265 1 Tablet(s) PO Q4H prn nausea 2009 No Stop Date Active Gabapentin 800 mg Tab RxNorm: 111691 1 Tablet(s) PO QD 08/07/2010 Inactive Synthroid 112 mcg Tab RxNorm: 976024 1 Tablet(s) PO QD 08/07/2010 Inactive Metformin ER 500 mg 24 hr Tab RxNorm: 985977 1 Tablet(s) PO QD 07/2309/14/2010 Inactive Vitamin D 1,000 unit Tab RxNorm: 328883 1 Tablet(s) PO TID 08/07/2002/12/2019 Inactive Symbicort 160 mcg-4.5 mcg/Actuation Inhalation HFA Aer osol Inhaler RxNorm: 2151856 2 Puff(s) INH BID 08/07/2010 09/14/2010 Inactive Prevacid 30 mg Cap RxNorm: 792056 1 Capsule(s) PO QD 08/07/201009/14 Inactive Metformin ER 500 mg 24 hr Tab RxNorm: 324206 1 Tablet(s) PO QD 06/2308/06/2010 Inactive Vitamin D 1,000 unit Tab RxNorm: 663619 1 Tablet(s) PO TID 07/14/2008/06/2010 Inactive Synthroid 112 mcg Tab RxNorm: 236311 1 Tablet(s) PO QD 07/14/2010 Inactive Lactulose 10 gram/15 mL Oral Soln RxNorm: 102029 1 Unit Dose PO QD 07/14/2010 08/06/2010 Inactive Levaquin 500 mg Tab RxNorm: 577918 1 Tablet(s) PO QD 07/14/201007/27 Inactive Premarin 0.9 mg Tab RxNorm: 538714 1 Tablet(s) PO QD 07/14/201008/06 Inactive ProAir HFA 90 mcg/Actuation Aerosol Inhaler RxNorm: 616951 2 Puff(s) INH Q4H prn shortness of breath 07/14/2010 No Stop Date Active Prevacid 30 mg Cap RxNorm: 730070 1 Capsule(s) PO QD 07/14/201008/06 Inactive Zofran 4 mg Tab RxNorm: 001466 1 Tablet(s) PO Q4H prn nausea 2009 No Stop Date Active Symbicort 160 mcg-4.5 mcg/Actuation Inhalation HFA Aer osol Inhaler RxNorm: 6516222 2 Puff(s) INH BID 07/14/2010 08/06/2010 Inactive Loratadine 10 mg Tab RxNorm: 2577944 1 Tablet(s) PO QD 07/14/2010 Inactive Gabapentin 800 mg Tab RxNorm: 183092 1 Tablet(s) PO QD 07/14/2010 Inactive Metformin ER 500 mg 24 hr Tab RxNorm: 620868 1 Tablet(s) PO 010 07/13/2010 Inactive Diazepam 10 mg Tab RxNorm: 667992 1 Tablet(s) PO BID and PRN 200909/06/2010 Inactive Premarin 0.9 mg Tab RxNorm: 532563 1 Tablet(s) PO QD 06/09/201007/13 Inactive Zofran 4 mg Tab RxNorm: 160236 1 Tablet(s) PO Q4H prn nausea 2009 No Stop Date Active ProAir HFA 90 mcg/Actuation Aerosol Inhaler RxNorm: 090378 2 Puff(s) INH Q4H prn shortness of breath 06/09/2010 No Stop Date Active Gabapentin 800 mg Tab RxNorm: 658365 1 Tablet(s) PO QD 06/09/2010 Inactive Loratadine 10 mg Tab RxNorm: 0986439 1 Tablet(s) PO QD 06/09/2010 Inactive Lactulose 10 gram/15 mL Oral Soln RxNorm: 654141 1 Unit Dose PO QD 06/09/2010 07/13/2010 Inactive Prevacid 30 mg Cap RxNorm: 024400 1 Capsule(s) PO QD 06/09/201007/13 Inactive Synthroid 112 mcg Tab RxNorm: 352370 1 Tablet(s) PO QD 06/09/2010 Inactive Symbicort 160 mcg-4.5 mcg/Actuation Inhalation HFA Aer osol Inhaler RxNorm: 5694429 2 Puff(s) INH BID 06/09/2010 07/13/2010 Inactive Omnicef 300 mg Cap RxNorm: 203309 2 Capsule(s) PO QD 05/07/201005/20 Inactive Metformin 500 mg Tab RxNorm: 607605 1 Tablet(s) PO QD 05/06/201005/22 Inactive ProAir HFA 90 mcg/Actuation Aerosol Inhaler RxNorm: 800088 2 Puff(s) INH Q4H prn shortness of breath 05/06/2010 No Stop Date Active lactulose 10 gram/15 mL Oral Soln RxNorm: 883520 1 Unit Dose PO QD 05/06/2010 06/10/2011 Inactive Loratadine 10 mg Tab RxNorm: 4089634 1 Tablet(s) PO QD 05/06/2010 Inactive Synthroid 112 mcg Tab RxNorm: 999429 1 Tablet(s) PO QD 05/06/2010 Inactive Symbicort 160 mcg-4.5 mcg/Actuation Inhalation HFA Aer osol Inhaler RxNorm: 7245881 2 Puff(s) INH BID 05/06/2010 06/08/2010 Inactive Gabapentin 800 mg Tab RxNorm: 652320 1 Tablet(s) PO QD 05/06/2010 Inactive 16.2 mg-0.1037 mg-0.0194 mg Tab RxNorm: 7191182 2 Tablet(s) PO TID PRN for gas and cramping 05/06/2010 05/12/2010 Inactive Zofran 4 mg Tab RxNorm: 364319 1 Tablet(s) PO Q4H prn nausea 200904/13/2010 Inactive MS Contin 60 mg Tab RxNorm: 329350 3 Tablet(s) PO BID 04/09/201004/22 Inactive Soma 350 mg Tab RxNorm: 223438 2 Tablet(s) PO TID 04/09/2010 05/08/20 10 Inactive Symbicort 160 mcg-4.5 mcg/Actuation Inhalation HFA Aer osol Inhaler RxNorm: 5808770 2 Puff(s) INH BID 04/08/2010 05/05/2010 Inactive Doxycycline 100 mg Cap RxNorm: 0332124 1 Capsule(s) PO BID 04/08/20 10 04/17/2010 Inactive Triamterene-Hydrochlorothiazide 37.5 mg-25 mg Cap RxNorm: 19 8316 1 Capsule(s) PO QAM 04/08/2010 09/04/2010 Inactive fluoxetine 40 mg Cap RxNorm: 525386 1 Capsule(s) PO QAM 04/08/2010 Inactive Morphine SR 120 mg multiphase 24 hr Cap RxNorm: 384102 1 Capsul e(s) PO 03/11/2010 04/07/2010 Inactive Endocet 10 mg-325 mg Tab RxNorm: 5057968 1-2 Tablet(s) PO Q4H CO N PAIN 03/11/2010 04/09/2010 Inactive Savella 100 mg Tab RxNorm: 286989 1 Tablet(s) PO BID 03/10/201004/09 Inactive Soma 350 mg Tab RxNorm: 951838 1 Tablet(s) PO TID prn spasm 010 04/09/2010 Inactive Savella 100 mg Tab RxNorm: 187338 1 Tablet(s) PO BID 02/03/201004/09 Inactive Aspirin 81 mg Tab RxNorm: 710378 1 Tablet(s) PO QD No Start Date Active Zyrtec 10 mg Tab RxNorm: 9431806 1 Tablet(s) PO QD No Start Date Active One Touch Ultra Test Strips RxNorm: Misc test at least t wice daily. No Start Date Active coenzyme Q10 200 mg capsule RxNorm: 135818 1 Capsule(s) PO QD No Star t Date Active One Touch Ultra Test Strips RxNorm: InVt BID Zainab t blood sugar at least twice daily. No Start Date 11/10/2010 Inactive Gabapentin 800 mg Tab RxNorm: 912864 1 Tablet(s) PO QD No Start Date 05/05/2010 Inactive Abilify 5 mg tablet RxNorm: 203447 1 Tablet(s) PO QD No Start Date Inactive Chantix 1 mg Tab RxNorm: 781590 1 Tablet(s) PO BID No Start Date 10/22 Inactive Ozempic 0.25 mg or 0.5 mg (2 mg/1.5 mL) subcutaneous p en injector RxNorm: 9488074 .25 Milligram(s) SQ QW No Start Date 07/04/2019 Inactive lancets 28 gauge RxNorm: Miscellaneous As needed for blo od glucose sticks No Start Date 08/23/2013 Inactive potassium chloride ER 20 mEq tablet,extended release RxNorm: 535618 2 Tablet(s) PO QD No Start Date 09/26/2018 Inactive Ventolin HFA 90 mcg/actuation Aerosol Inhaler RxNorm: 181644 2 Puff(s) INH Q4H prn No Start Date 01/17/2012 Inactive potassium chloride ER 20 mEq tablet,extended release RxNorm: 269639 2 Tablet(s) PO QD No Start Date 10/19/2018 Inactive Januvia 100 mg tablet RxNorm: 549849 1 Tablet(s) PO QD No Start Date 09/10/2015 Inactive Medrol (Aníbal) 4 mg Tabs in a Dose Pack RxNorm: 569577 Tablet(s) PO N o Start Date 08/09/2011 Inactive as directed Zithromax Z-Aníbal 250 mg Tab RxNorm: 162309 Tablet(s) PO No Start Date 01/25/2012 Inactive as directed vitamin B6-vitamin E-magnesium tablet RxNorm: 1 Tablet(s ) PO QHS with INH No Start Date 03/30/2018 Inactive prednisone 20 mg Tab RxNorm: 273864 1 Tablet(s) PO TID for 1wk then 1 po BID for 1wk No Start Date 01/25/2012 Inactive furosemide 40 mg tablet RxNorm: 094212 1 Tablet(s) PO QAM No Start Date 10/09/2018 Inactive Vitamin D3 1000 units Capsule RxNorm: 1 Capsule(s) PO TID No S tart Date 03/19/2015 Inactive Zofran 4 mg Tab RxNorm: 328304 1 Tablet(s) PO Q4H prn nausea No Sta rt Date 04/13/2010 Inactive Premarin 0.625 mg/g Vaginal Cream RxNorm: 962476 1 Gram (s) VAG QHS 3 times a week No Start Date 09/22/2017 Inactive oxycodone 10 mg tablet RxNorm: 5046671 1-2 Tablet(s) PO QID as n eeded for pain No Start Date 11/04/2015 Inactive Nicoderm CQ 21 mg/24 hr daily Patch RxNorm: 113688 1 Applicatio n TD QD No Start Date 08/05/2015 Inactive Topamax 50 mg tablet RxNorm: 822592 1/2 Tablet(s) PO QH S for 1wk then 1 po q HS for 1wk then 2 po q HS No Start Date 06/27/2012 Inactive Chantix Starting Month Aníbal 0.5 mg (11)-1 mg (3x14) Tab s in a Dose Pack RxNorm: 839763 Tablet(s) PO as directed No Start Date 03/01/2011 Inactive Trulicity 0.75 mg/0.5 mL subcutaneous pen injector RxNorm: 1 685516 Milliliter(s) SQ No Start Date 07/04/2019 Inactive Medrol (Aníbal) 4 mg Tabs in a Dose Pack RxNorm: 789074 Tablet(s) PO N o Start Date 01/25/2012 Inactive as directed Duragesic 100 mcg/hr Transderm Patch RxNorm: 375736 2 A pplication TD Q48H for pain No Start Date 09/05/2013 Inactive Premarin 0.9 mg Tab RxNorm: 470176 1 Tablet(s) PO QD No Start Date Inactive Zithromax Z-Aníbal 250 mg Tab RxNorm: 708046 Tablet(s) PO as direc chinmay No Start Date 01/25/2012 Inactive ondansetron 8 mg disintegrating tablet RxNorm: 004786 1 Tablet(s) PO Q6H as needed No Start Date 10/10/2018 Inactive oxycodone 15 mg tablet RxNorm: 7816932 1 Tablet(s) PO QID as nee ded for pain No Start Date 03/05/2019 Inactive ProAir HFA 90 mcg/Actuation Aerosol Inhaler RxNorm: 406911 2 Puff(s) INH Q4H prn for wheezing or shortness of breath No Start Date 12/21/2011 Inactive pravastatin 40 mg tablet RxNorm: 963092 1/2 Tablet(s) PO QOD No Sta rt Date 04/09/2015 Inactive ipratropium-albuterol 0.5 mg-3 mg(2.5 mg base)/3 mL ne bulization soln RxNorm: 0478961 1 Unit Dose INH Q4H as needed No Start Date 09/09/2016 Inactive furosemide 40 mg tablet RxNorm: 465312 1 Tablet(s) PO QAM as ne eded No Start Date 09/24/2019 Inactive Vitamin D2 oral RxNorm: 4018 oral No Start Date 03/18/2015 Inacti ve pravastatin 40 mg tablet RxNorm: 128955 1/2 Tablet(s) PO QD No Star t Date 04/09/2015 Inactive ondansetron HCl 4 mg tablet RxNorm: 256538 1 Tablet(s) PO Q4H as needed for nausea and vomiting No Start Date 04/07/2016 Inactive furosemide 40 mg tablet RxNorm: 404688 2 Tablet(s) PO QAM No Start Date 09/26/2018 Inactive gabapentin 800 mg tablet RxNorm: 618548 1/2 Tablet(s) PO BID No Sta rt Date 06/21/2017 Inactive gabapentin 800 mg tablet RxNorm: 570180 1/2 Tablet(s) PO BID No Sta rt Date 07/05/2017 Inactive ProAir HFA 90 mcg/Actuation Aerosol Inhaler RxNorm: 492071 2 Puff(s) INH Q4H prn shortness of breath No Start Date 05/05/2010 Inactive scopolamine 1 mg over 3 days transdermal patch RxNorm: 46323 2 1 Application TD behind ear. Take off after three days No Start Date 10/10/2018 Inactive Metformin 500 mg Tab RxNorm: 684781 1 Tablet(s) PO QD No Start Date 0 05/05/2010 Inactive MS Contin 200 mg Tab RxNorm: 863453 1 Tablet(s) PO BID No Start Date 08/20/2011 Inactive Belladonna-Phenobarbital 48 mg tablet,extended release RxNor m: 2 Tablet(s) PO TID No Start Date 06/04/2016 Inactive Synthroid 112 mcg Tab RxNorm: 425298 1 Tablet(s) PO QD No Start Date 05/05/2010 Inactive Zegerid 40 mg-1.1 gram Cap RxNorm: 243925 1 Capsule(s) PO QD No Sta rt Date 01/25/2012 Inactive Premarin 0.625 mg/g Vaginal Cream RxNorm: 819848 VAG In sert 1gm vaginally at bedtime 3 times weekly No Start Date 01/17/2011 Inactive potassium chloride ER 20 mEq tablet,extended release RxNorm: 678325 1 Tablet(s) PO QD No Start Date 04/24/2019 Inactive methocarbamol 750 mg tablet RxNorm: 753164 2 Tablet(s) PO TID as needed for muscle spasm No Start Date 07/08/2014 Inactive Biaxin XL Aníbal 500 mg 24 hr Tab RxNorm: 025759 Tablet(s) PO as d irected No Start Date 04/24/2013 Inactive Vitamin D3 1,000 unit tablet RxNorm: 012433 3 Tablet(s) PO QD No St art Date 06/01/2017 Inactive Morphine SR 120 mg multiphase 24 hr Cap RxNorm: 792955 1 Capsul e(s) PO BID No Start Date 04/09/2010 Inactive Silvadene 1 % topical cream RxNorm: 631836 1 Application TOP BI D to burn area No Start Date 01/31/2017 Inactive Prednisone 20 mg Tab RxNorm: 111572 1 Tablet(s) PO TID for 3days then BID for 4days No Start Date 01/25/2012 Inactive gabapentin 600 mg tablet RxNorm: 905500 1 Tablet(s) PO BID No Start Date 01/21/2015 Inactive topiramate 50 mg tablet RxNorm: 929349 1 Tablet(s) PO QHS No Start Date 03/30/2018 Inactive Januvia 100 mg tablet RxNorm: 323223 1/2 Tablet(s) PO QD No Start D ate 12/25/2015 Inactive Diazepam 10 mg Tab RxNorm: 068089 1 Tablet(s) PO BID and PRN No Sta rt Date 06/08/2010 Inactive Medication Administered No Medication Administered data Immunizations Vaccine Codes Date Status Influenza CVX: 141 09/28/2012 Pneumovax Unknown 09/28/2012 Influenza (Adult) CVX: 141 09/02/2010 Results No Results data Procedures Procedure Codes Date THER/PROPH/DIAG INJ SC/IM CPT-4: 90753 07/10/2019 METHYLPREDNISOLONE INJECTION CPT-4: J2930 07/10/2019 URINALYSIS NONAUTO W/O SCOPE CPT-4: 46041 09/06/2018 URINE CULTURE/ COLONY COUNT CPT-4: 18597 09/06/2018 DRAIN/INJECT JOINT/BURSA CPT-4: 57277 04/29/2017 TRIAMCINOLONE ACET INJ NOS CPT-4: J3301 04/29/2017 DEXAMETHASONE SODIUM PHOS CPT-4: J1100 04/29/2017 INFLUENZA ASSAY W/OPTIC CPT-4: 51188 12/01/2016 RESPIRATORY CULTURE & STAIN CPT-4: 84217 07/09/2016 TB INTRADERMAL TEST CPT-4: 13631 04/21/2016 DRAIN/INJECT JOINT/BURSA CPT-4: 67572 11/07/2013 METHYLPREDNISOLONE 40 MG INJ CPT-4: J1030 11/07/2013 TRIAMCINOLONE ACET INJ NOS CPT-4: J3301 11/07/2013 DRAIN/INJECT JOINT/BURSA CPT-4: 06821 08/08/2013 METHYLPREDNISOLONE 40 MG INJ CPT-4: J1030 08/08/2013 TRIAMCINOLONE ACET INJ NOS CPT-4: J3301 08/08/2013 FLU VACCINE 3 YRS & > IM UP 64 CPT-4: 49424 2 PNEUMOCOCCAL VACC 23 ADITYA IM CPT-4: 34508 09/28/2012 IMMUNIZATION ADMIN CPT-4: 89021 09/28/2012 IMMUNIZATION ADMIN EACH ADD CPT-4: 30389 09/28/2012 FLU VACCINE 3 YRS & > IM UP 64 CPT-4: 14993 0 IMMUNIZATION ADMIN CPT-4: 33318 09/02/2010 METHYLPREDNISOLONE INJECTION CPT-4: J2930 05/07/2010 THER/PROPH/DIAG INJ SC/IM CPT-4: 09101 05/07/2010 Vital Signs Date Vital 11/29/2019 Blood [...] 1: 122/78 Code: 8480-6 BMI: 29.5 Code: 44320-7 Heart Rate 1: 76 bpm Height: 5'4" Respiratory Rate: 20 bpm SpO2: 96% Tempera ture: 37.0 (C) / 98.6 (F) Weight: 172 lbs 01/25/2019 Blood Pressure 1: 132/80 Code: 8480-6 BMI: 29.7 Code: 54738-0 Heart Rate 1: 84 bpm Height: 5'4" Respiratory Rate: 22 bpm SpO2: 98% Tempera ture: 36.9 (C) / 98.4 (F) Weight: 173 lbs 01/03/2019 Blood Pressure 1: 116/70 Code: 8480-6 BMI: 29.5 Code: 53159-5 Heart Rate 1: 92 bpm Height: 5'4" Respiratory Rate: 24 bpm SpO2: 98% Tempera ture: 37.2 (C) / 98.9 (F) Weight: 172 lbs 11/21/2018 Blood Pressure 1: 146/82 Code: 8480-6 BMI: 28.2 Code: 27263-6 Heart Rate 1: 88 bpm Height: 5'4" Respiratory Rate: 22 bpm SpO2: 97% Tempera ture: 36.9 (C) / 98.4 (F) Weight: 164 lbs 10/27/2018 Blood Pressure 1: 122/70 Code: 8480-6 BMI: 27.6 Code: 08817-1 Heart Rate 1: 88 bpm Height: 5'4" Respiratory Rate: 20 bpm SpO2: 96% Tempera ture: 36.8 (C) / 98.3 (F) Weight: 161 lbs 10/18/2018 Blood Pressure 1: 126/70 Code: 8480-6 BMI: 28.3 Code: 43383-5 Heart Rate 1: 76 bpm Height: 5'4" Respiratory Rate: 20 bpm SpO2: 95% Tempera ture: 37.0 (C) / 98.6 (F) Weight: 165 lbs 09/27/2018 Blood Pressure 1: 124/78 Code: 8480-6 BMI: 27.1 Code: 18235-5 Heart Rate 1: 88 bpm Height: 5'4" Respiratory Rate: 20 bpm SpO2: 98% Tempera ture: 36.4 (C) / 97.6 (F) Weight: 158 lbs 09/14/2018 Blood Pressure 1: 140/72 Code: 8480-6 BMI: 26.1 Code: 90929-9 Heart Rate 1: 100 bpm Height: 5'4" Respiratory Rate: 20 bpm SpO2: 97% Tempera ture: 36.9 (C) / 98.4 (F) Weight: 152 lbs 09/06/2018 Blood Pressure 1: 156/82 Code: 8480-6 BMI: 26.3 Code: 78426-2 Heart Rate 1: 100 bpm Height: 5'4" Respiratory Rate: 28 bpm SpO2: 95% Tempera ture: 37.2 (C) / 98.9 (F) Weight: 153 lbs 08/16/2018 Blood Pressure 1: 130/78 Code: 8480-6 Heart Rate 1: 87 bpm Respiratory Rate: 24 bpm SpO2: 94% Temperature: 36.9 (C) / 98.4 (F) We ight: 147 lbs 8 oz 07/07/2018 Blood Pressure 1: 116/78 Code: 8480-6 BMI: 22.7 Code: 09204-6 Heart Rate 1: 88 bpm Height: 5'4" Respiratory Rate: 22 bpm SpO2: 98% Tempera ture: 36.5 (C) / 97.7 (F) Weight: 132 lbs 05/31/2018 Blood Pressure 1: 128/78 Code: 8480-6 BMI: 22.3 Code: 67992-7 Heart Rate 1: 92 bpm Height: 5'4" Respiratory Rate: 26 bpm SpO2: 94% Tempera ture: 36.7 (C) / 98.1 (F) Weight: 130 lbs 03/31/2018 Blood Pressure 1: 136/78 Code: 8480-6 BMI: 21.5 Code: 93666-0 Heart Rate 1: 76 bpm Height: 5'4" Respiratory Rate: 24 bpm SpO2: 95% Tempera ture: 36.8 (C) / 98.3 (F) Weight: 125 lbs 01/26/2018 Blood Pressure 1: 142/64 Code: 8480-6 BMI: 20.6 Code: 46870-7 Heart Rate 1: 90 bpm Height: 5'4" Respiratory Rate: 24 bpm SpO2: 92% Tempera ture: 36.3 (C) / 97.3 (F) Weight: 120 lbs 10/26/2017 Blood Pressure 1: 124/70 Code: 8480-6 BMI: 20.3 Code: 95481-4 Heart Rate 1: 76 bpm Height: 5'4" Respiratory Rate: 22 bpm SpO2: 94% Tempera ture: 36.7 (C) / 98.1 (F) Weight: 118 lbs 09/23/2017 Blood Pressure 1: 106/70 Code: 8480-6 BMI: 19.2 Code: 23207-9 Heart Rate 1: 76 bpm Height: 5'4" Respiratory Rate: 20 bpm SpO2: 94% Tempera ture: 36.8 (C) / 98.3 (F) Weight: 112 lbs 08/12/2017 Blood Pressure 1: 116/68 Code: 8480-6 BMI: 20.1 Code: 89440-7 Heart Rate 1: 80 bpm Height: 5'4" Respiratory Rate: 22 bpm SpO2: 95% Tempera ture: 36.8 (C) / 98.2 (F) Weight: 117 lbs 07/06/2017 Blood Pressure 1: 136/78 Code: 8480-6 BMI: 20.6 Code: 57205-8 Heart Rate 1: 76 bpm Height: 5'4" Respiratory Rate: 24 bpm SpO2: 96% Tempera ture: 36.8 (C) / 98.2 (F) Weight: 120 lbs 06/02/2017 Blood Pressure 1: 112/70 Code: 8480-6 Heart Rate 1: 92 bpm Height: 5'4" Respiratory Rate: 24 bpm SpO2: 95% Temperature: 37.0 (C) / 98.6 (F) Weight: 04/29/2017 Blood Pressure 1: 94/52 Code: 8480-6 BMI: 19.6 C ode: 96546-6 Heart Rate 1: 84 bpm Height: 5'4" [...] 92/58 Code: 8480-6 BMI: 19.2 C ode: 15739-5 Heart Rate 1: 84 bpm Height: 5'4" Respiratory Rate: 26 bpm SpO2: 95% Tempera ture: 36.7 (C) / 98.0 (F) Weight: 112 lbs 12/01/2016 Blood Pressure 1: 114/70 Code: 8480-6 BMI: 19.2 Code: 27090-9 Heart Rate 1: 96 bpm Height: 5'4" Respiratory Rate: 28 bpm SpO2: 93% Tempera ture: 38.3 (C) / 101.0 (F) Weight: 112 lbs 10/27/2016 Blood Pressure 1: 126/66 Code: 8480-6 BMI: 19.6 Code: 80556-1 Heart Rate 1: 92 bpm Height: 5'4" Respiratory Rate: 28 bpm SpO2: 90% Tempera ture: 36.8 (C) / 98.3 (F) Weight: 114 lbs 09/09/2016 Blood Pressure 1: 126/74 Code: 8480-6 Heart Rate 1: 104 bpm Height: 5'4" Respiratory Rate: 32 bpm SpO2: 88% Temperature: 37 .2 (C) / 99.0 (F) 08/26/2016 Blood Pressure 1: 134/82 Code: 8480-6 BMI: 22.0 Code: 05412-8 Heart Rate 1: 84 bpm Height: 5'4" Respiratory Rate: 24 bpm SpO2: 94% Tempera ture: 36.8 (C) / 98.3 (F) Weight: 128 lbs 05/21/2016 Blood Pressure 1: 142/80 Code: 8480-6 BMI: 21.6 Code: 81686-4 Heart Rate 1: 104 bpm Height: 5'4" Respiratory Rate: 22 bpm SpO2: 93% Tempera ture: 36.0 (C) / 96.8 (F) Weight: 126 lbs 03/25/2016 Blood Pressure 1: 126/62 Code: 8480-6 Heart Rate 1: 88 bpm Respiratory Rate: 20 bpm SpO2: 92% Temperature: 36.8 (C) / 98.3 (F) We ight: 130 lbs 01/23/2016 Blood Pressure 1: 146/82 Code: 8480-6 BMI: 24.1 Code: 40168-9 Heart Rate 1: 92 bpm Height: 5'3" Respiratory Rate: 22 bpm Temperature: 37 .1 (C) / 98.8 (F) Weight: 136 lbs 12/26/2015 Blood Pressure 1: 142/78 Code: 8480-6 BMI: 24.6 Code: 73977-9 Heart Rate 1: 78 bpm Height: 5'3" Respiratory Rate: 20 bpm Temperature: 36 .7 (C) / 98.1 (F) Weight: 139 lbs 12/03/2015 Blood Pressure 1: 126/60 Code: 8480-6 BMI: 24.6 Code: 13664-1 Heart Rate 1: 100 bpm Height: 5'3" Respiratory Rate: 28 bpm Temperature: 37 .6 (C) / 99.6 (F) Weight: 139 lbs 09/10/2015 Blood Pressure 1: 124/64 Code: 8480-6 BMI: 23.7 Code: 44779-2 Heart Rate 1: 88 bpm Height: 5'3" Respiratory Rate: 24 bpm SpO2: 95% Tempera ture: 36.4 (C) / 97.6 (F) Weight: 134 lbs 08/06/2015 Blood Pressure 1: 114/76 Code: 8480-6 BMI: 23.2 Code: 05278-5 Heart Rate 1: 88 bpm Height: 5'3" Respiratory Rate: 22 bpm Temperature: 36 .6 (C) / 97.9 (F) Weight: 131 lbs 07/18/2015 Blood Pressure 1: 144/78 Code: 8480-6 BMI: 23.7 Code: 83299-1 Heart Rate 1: 84 bpm Height: 5'3" Respiratory Rate: 20 bpm Temperature: 37 .2 (C) / 99.0 (F) Weight: 134 lbs 04/10/2015 Blood Pressure 1: 110/64 Code: 8480-6 Heart Rate 1: 80 bpm Height: Respiratory Rate: 20 bpm Temperature: 37.1 (C) / 98.8 (F) Weight: 03/05/2015 Blood Pressure 1: 136/80 Code: 8480-6 BMI: 23.9 Code: 83648-4 Heart Rate 1: 76 bpm Height: 5'3" Respiratory Rate: 24 bpm Temperature: 37 .0 (C) / 98.6 (F) Weight: 135 lbs 01/30/2015 Blood Pressure 1: 142/80 Code: 8480-6 BMI: 23.0 Code: 80126-6 Heart Rate 1: 96 bpm Height: 5'3" Respiratory Rate: 22 bpm Temperature: 36 .2 (C) / 97.2 (F) Weight: 130 lbs 01/02/2015 Blood Pressure 1: 124/70 Code: 8480-6 BMI: 23.4 Code: 40671-2 Heart Rate 1: 84 bpm Height: 5'3" Respiratory Rate: 24 bpm SpO2: 95% Tempera ture: 36.9 (C) / 98.5 (F) Weight: 132 lbs 10/03/2014 Blood Pressure 1: 106/68 Code: 8480-6 BMI: 22.5 Code: 44873-4 Heart Rate 1: 88 bpm Height: 5'3" Respiratory Rate: 24 bpm Temperature: 37 .0 (C) / 98.6 (F) Weight: 127 lbs 08/27/2014 Blood Pressure 1: 124/68 Code: 8480-6 BMI: 21.1 Code: 85094-1 Heart Rate 1: 88 bpm Height: 5'3" [...] 1: 120/70 Code: 8480-6 BMI: 19.2 Code: 18878-9 Heart Rate 1: 70 bpm Height: 5'4" Respiratory Rate: 20 bpm Temperature: 36 .9 (C) / 98.4 (F) Weight: 112 lbs 06/28/2013 Blood Pressure 1: 102/68 Code: 8480-6 BMI: 19.6 Code: 62020-6 Heart Rate 1: 76 bpm Height: 5'4" Respiratory Rate: 20 bpm Temperature: 36 .8 (C) / 98.2 (F) Weight: 114 lbs 05/31/2013 Blood Pressure 1: 106/70 Code: 8480-6 BMI: 18.9 Code: 37817-3 Heart Rate 1: 100 bpm Height: 5'4" Respiratory Rate: 20 bpm Temperature: 36 .4 (C) / 97.6 (F) Weight: 110 lbs 05/03/2013 Blood Pressure 1: 126/70 Code: 8480-6 BMI: 19.1 Code: 56098-1 Heart Rate 1: 88 bpm Height: 5'4" Respiratory Rate: 20 bpm Temperature: 37 .1 (C) / 98.8 (F) Weight: 111 lbs 04/25/2013 Blood Pressure 1: 114/68 Code: 8480-6 BMI: 19.4 Code: 93091-2 Heart Rate 1: 92 bpm Height: 5'4" Respiratory Rate: 24 bpm SpO2: 96% Tempera ture: 37.7 (C) / 99.8 (F) Weight: 113 lbs 03/08/2013 Blood Pressure 1: 94/68 Code: 8480-6 BMI: 21.3 C ode: 63006-6 Heart Rate 1: 88 bpm Height: 5'4" Respiratory Rate: 24 bpm Temperature: 37 .0 (C) / 98.6 (F) Weight: 124 lbs 02/07/2013 Blood Pressure 1: 106/64 Code: 8480-6 BMI: 21.8 Code: 72653-9 Heart Rate 1: 84 bpm Height: 5'4" Respiratory Rate: 22 bpm Temperature: 36 .8 (C) / 98.2 (F) Weight: 127 lbs 01/10/2013 Blood Pressure 1: 122/68 Code: 8480-6 BMI: 21.6 Code: 79128-2 Heart Rate 1: 94 bpm Height: 5'4" SpO2: 94% Temperature: 36.7 (C) / 98.1 (F) Weight: 126 lbs 09/28/2012 Blood Pressure 1: 124/78 Code: 8480-6 BMI: 24.9 Code: 65781-5 Heart Rate 1: 92 bpm Height: 5'4" Respiratory Rate: 20 bpm Temperature: 36 .7 (C) / 98.1 (F) Weight: 145 lbs 06/28/2012 Blood Pressure 1: 134/80 Code: 8480-6 BMI: 24.9 Code: 03176-7 Heart Rate 1: 76 bpm Height: 5'4" Respiratory Rate: 20 bpm Temperature: 36 .8 (C) / 98.2 (F) Weight: 145 lbs 05/03/2012 Blood Pressure 1: 108/62 Code: 8480-6 BMI: 25.6 Code: 50945-2 Heart Rate 1: 88 bpm Height: 5'4" Temperature: 36.2 (C) / 97.2 (F) Weight: 149 lbs 03/01/2012 Blood Pressure 1: 124/66 Code: 8480-6 BMI: 25.1 Code: 54836-6 Heart Rate 1: 76 bpm Height: 5'4" Respiratory Rate: 20 bpm Temperature: 36 .6 (C) / 97.9 (F) Weight: 146 lbs 01/26/2012 Blood Pressure 1: 118/82 Code: 8480-6 BMI: 25.1 Code: 36020-0 Heart Rate 1: 74 bpm Height: 5'4" Temperature: 36.8 (C) / 98.2 (F) Weight: 146 lbs 11/03/2011 Blood Pressure 1: 126/80 Code: 8480-6 BMI: 27.3 Code: 74904-8 Heart Rate 1: 72 bpm Height: 5'4" [...] prozac Encounters Encounter Performer Location Codes Date ([id number]) OFFICE/OUTPATIENT VISIT EST Diagnosis: Spinal stenosis, lumbar region with neurogenic claudication[ICD10: M48.062] Diagnosis: Spondylosis without myelopathy or radiculopathy, 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 Medication Summary Completed 09/02/2010 Visit Plan: Return for 2nd epidural Obse rve right leg lesion Cont Symbicort and Spiriva 07/14/2010 Appointment: Vika Renteriatel: [address] [place] [address] [place] FOLLOW UP 07/14/2010 Patient Education: Patient Medication Summary Completed 07/14/2010 Appointment: Vika Renteria WPtel: [address] [place], [place] [phone] [place] FOLLOW UP 05/27/2010 Appointment: Vika Renteria WPtel: [address] [place], [place] [phone] [place] FOLLOW UP 05/14/2010 Visit Plan: SVN with Albuterol 0.083% Q4 hrs and Q2hrs prn. Restart Spiriva Smoking Cessation 05/07/2010 Appointment: Vika Renteria WPtel: [address] [place], [place] [phone] [place] FOLLOW UP 05/07/2010 Patient Education: Patient Medication Summary Completed 05/07/2010 Appointment: Vika Renteria WPtel: [id number] ACUTE ILLNESS 04/08/2010 Patient Education: Patient Medication Summary Completed 04/08/2010 Referral: Kyle Billings WPtel: [phone] [facility] [place] Referral Completed Referral: Jaylan Matute WPtel: [phone] [facility] [address] [id number] [place] Referral Initiated Referral: Kyle Billings WPtel: [phone] [facility] [place] Referral Appointment Requested Instructions Comment [...] prn breakthrough pain . Discussed that some [place] produc ts are petroleum free If [...]
--- OUTSIDE RECORDS SUMMARY | 2020-04-24 22:40 | XMS REPORT | CCD ---
Author Author Yana Renteria D.O. Organization [facility] Address [address] [place] [address] Phone Care Team Providers Care Pharmacy Grad Intern Name Role Phone Vika Renteria D.O., PP Unavailable CCM Unavailable Summary Purpose Interface Exchange Insurance Providers Payer name Policy type / Coverage type Covered green party ID Effective Begin Date Effective End Date [employer] [facility] Medicaid [id number] U nknown Family History Family History data not found Social History Social History Element Codes Description Effective Dates Marital status Unknown 06/28/[address]: [id number] Currently smokes tobacco 05/2013 Allergies, Adverse Reactions, [...] fatigue ICD-9: 780.79 ICD-10: R53.83 08/27/2014 Active Spinal stenosis, lumbar region with neurogenic claudic ation ICD-9: 724.03 ICD-10: M48.062 10/30/2019 Active Lumbar degenerative disc disease ICD-9: 722.52 ICD-10: M51.36 10/30/2019 Active Muscle spasm ICD-9: 728.85 ICD-10: M62.838 03/31/2018 Active Spondylosis without myelopathy or radiculopathy, cervi brooks region ICD-9: 721.0 ICD-10: M47.812 10/30/2019 Active Epigastric pain ICD-9: 789.06 ICD-10: R10.13 [...] mcg-4.5 mcg/actuation HFA aerosol inhaler RxNo rm: [id number] INHALE TWO PUFFS BY MOUTH TWICE A DAY 02/19/2020 No Stop Date Active Daliresp 500 mcg tablet RxNorm: 7577834 TAKE ONE TABLET BY MOUTH DAILY 02/19/2020 No Stop Date Active prednisone 20 mg tablet RxNorm: 510854 1 Tablet(s) Oral two yumi es a day 02/13/2020 02/20/2020 Active oxycodone 30 mg tablet RxNorm: 7249499 1 Tablet(s) Oral four times a day replaces MS Contin 02/13/2020 03/14/2020 Active levothyroxine 25 mcg tablet RxNorm: 284077 TAKE ONE TAB LET BY MOUTH EVERY MORNING 02/09/2020 No Stop Date Active MS Contin 200 mg tablet,extended release RxNorm: 499356 1 Tablet(s) Oral two times a day 02/01/2020 03/01/2020 Active cyclobenzaprine 10 mg tablet RxNorm: 763608 TAKE ONE TA BLET BY MOUTH THREE TIMES A DAY NEEDED 01/31/2020 No Stop Date Active Premarin 0.45 mg tablet RxNorm: 265757 TAKE ONE TABLET BY MOUTH DAILY 01/31/2020 No Stop Date Active metformin 500 mg tablet RxNorm: 210043 1 Tablet(s) Oral QD 01/31/20 20 04/29/2020 Active gabapentin 300 mg capsule RxNorm: 637617 TAKE ONE CAPSULE BY [facility] TWICE A DAY 01/16/2020 No Stop Date Active potassium chloride ER 20 mEq tablet,extended release RxNorm: 434521 TAKE ONE TABLET BY MOUTH DAILY 01/08/2020 07/05/2020 Active ProAir HFA 90 mcg/actuation aerosol inhaler RxNorm: 606952 INHALE ONE PUFF BY MOUTH EVERY 4 HOURS FOR WHEEZING OR FOR SHORTNESS OF BREATH 01/04/2020 No Stop Date Active metformin 500 mg tablet RxNorm: 496420 1 Tablet(s) Oral QD 01/04/20 20 01/30/2020 Inactive MS Contin 200 mg tablet,extended release RxNorm: 313347 1 Tablet(s) Oral two times a day 01/02/2020 01/31/2020 Inactive Pulmicort 1 mg/2 mL suspension for nebulization RxNorm: 6168 19 USE ONE VIAL VIA NEBULIZER BY MOUTH TWICE A DAY 12/21/2019 No Stop Date Active furosemide 40 mg tablet RxNorm: 210471 TAKE ONE TABLET BY MOUTH EVERY MORNING NEEDED 12/20/2019 No Stop Date Active levothyroxine 25 mcg tablet RxNorm: 710372 TAKE ONE TAB LET BY MOUTH EVERY MORNING 12/20/2019 02/08/2020 Inactive MS Contin 200 mg tablet,extended release RxNorm: 465146 1 Tablet(s) Oral two times a day 12/05/2019 01/01/2020 Inactive Medrol (Aníbal) 4 mg tablets in a dose pack RxNorm: 798925 6 Tablet(s) Oral QD --then as directed 11/30/2019 12/05/2019 Inactive MS Contin 200 mg tablet,extended release RxNorm: 956502 1 Tablet(s) Oral two times a day 11/29/2019 12/04/2019 Inactive cyclobenzaprine 10 mg tablet RxNorm: 270367 TAKE ONE TA BLET BY MOUTH THREE TIMES A DAY NEEDED 11/21/2019 01/30/2020 Inactive MS Contin 200 mg tablet,extended release RxNorm: 272803 1 Tablet(s) Oral two times a day replaces 100mg dose 11/03/2019 11/02/2019 Inactive MS Contin 200 mg tablet,extended release RxNorm: 566943 1 Tablet(s) Oral two times a day replaces 100mg dose 11/03/2019 11/29/2019 Inactive ferrous sulfate 325 mg (65 mg iron) tablet RxNorm: 793027 1 Tab let(s) Oral QD 10/30/2019 No Stop Date Active MS Contin 100 mg tablet,extended release RxNorm: 132735 1 Table t(s) Oral QD 10/30/2019 10/29/2019 Inactive MS Contin 100 mg tablet,extended release RxNorm: 530474 1 Table t(s) Oral QD 10/30/2019 11/02/2019 Inactive Relistor 150 mg tablet RxNorm: 5290555 TAKE THREE TABLETS BY BENOIT TH DAILY 10/25/2019 No Stop Date Active pantoprazole 40 mg tablet,delayed release RxNorm: 966801 1 Tabl et(s) Oral QD 10/25/2019 No Stop Date Active Minipress 2 mg capsule RxNorm: 106346 1 Capsule(s) Oral QAM and 3 at bedtime 10/25/2019 No Stop Date Active Lancets, Super Thin RxNorm: 1 Unit Dose Miscellaneous QD 9 11/27/2020 Active Cymbalta 60 mg capsule,delayed release RxNorm: 219030 1 Capsule (s) Oral QAM 10/25/2019 No Stop Date Active Cymbalta 30 mg capsule,delayed release RxNorm: 690282 1 Capsule (s) Oral QAM 10/25/2019 No Stop Date Active oxycodone 15 mg tablet RxNorm: 6651171 1 Tablet(s) Oral four times a day as needed for pain 10/25/2019 11/28/2019 Inactive metformin 500 mg tablet RxNorm: 734911 1 Tablet(s) Oral QD 10/25/20 19 01/03/2020 Inactive levothyroxine 25 mcg tablet RxNorm: 532078 1 Tablet(s) Oral QAM 02/201912/19/2019 Inactive levothyroxine 25 mcg tablet RxNorm: 702290 1 Tablet(s) Oral QAM 02/201910/24/2019 Inactive MS Contin 100 mg tablet,extended release RxNorm: 628973 1 Tablet(s) Oral two times a day replaces fentanyl 10/25/2019 10/25/2019 Inactive Premarin 0.45 mg tablet RxNorm: 656559 TAKE ONE TABLET BY MOUTH DAILY 10/24/2019 01/30/2020 Inactive Duragesic 100 mcg/hr transdermal patch RxNorm: 157978 2 Application TD Q48H for pain 10/18/2019 10/24/2019 Inactive gabapentin 300 mg capsule RxNorm: 804369 TAKE ONE CAPSULE BY MO UTH TWICE A DAY 10/16/2019 01/15/2020 Inactive cyclobenzaprine 10 mg tablet RxNorm: 918011 TAKE ONE TA BLET BY MOUTH THREE TIMES A DAY NEEDED 09/27/2019 11/20/2019 Inactive Relistor 150 mg tablet RxNorm: 6368179 TAKE THREE TABLETS BY BENOIT TH DAILY 09/25/2019 10/24/2019 Inactive ProAir HFA 90 mcg/actuation aerosol inhaler RxNorm: 432035 INHALE ONE PUFF BY MOUTH EVERY 4 HOURS FOR WHEEZING OR FOR SHORTNESS OF BREATH 09/25/2019 01/03/2020 Inactive furosemide 40 mg tablet RxNorm: 705681 1 Tablet(s) Oral QAM as needed 09/25/2019 09/25/2019 Inactive oxycodone 15 mg tablet RxNorm: 7226542 1 Tablet(s) PO QID as nee ded for pain 09/21/2019 10/24/2019 Inactive Duragesic 100 mcg/hr transdermal patch RxNorm: 245039 2 Application TD Q48H for pain 09/19/2019 10/17/2019 Inactive Daliresp 500 mcg tablet RxNorm: 0730806 1 Tablet(s) Oral QD 019 02/18/2020 Inactive Relistor 150 mg tablet RxNorm: 3607723 TAKE THREE TABLETS BY BENOIT TH DAILY 07/25/2019 07/30/2019 Inactive cyclobenzaprine 10 mg tablet RxNorm: 054346 TAKE ONE TA BLET BY MOUTH THREE TIMES A DAY NEEDED 07/25/2019 09/22/2019 Inactive potassium chloride ER 20 mEq tablet,extended release RxNorm: 398769 TAKE ONE TABLET BY MOUTH DAILY 07/25/2019 01/07/2020 Inactive fluoxetine 40 mg capsule RxNorm: 302621 TAKE ONE CAPSULE BY BENOIT TH EVERY MORNING 07/11/2019 10/24/2019 Inactive Medrol (Aníbal) 4 mg tablets in a dose pack RxNorm: 036777 6 Tablet(s) PO QD --then as directed 07/10/2019 07/15/2019 Inactive omeprazole 40 mg capsule,delayed release RxNorm: 016449 1 Capsule(s) PO QD for stomach TAKE ONE CAPSULE BY MOUTH DAILY 07/10/2019 10/24/2019 Inactive Augmentin 875 mg-125 mg tablet RxNorm: 117141 1 Tablet(s) PO BID 07/16/2019 Inactive Trulicity 0.75 mg/0.5 mL subcutaneous pen injector RxNorm: 1 721271 0.75 Milliliter(s) SQ weekly 07/05/2019 10/24/2019 Inactive Compazine 10 mg tablet RxNorm: 860687 TAKE ONE TABLET B Y MOUTH FOUR TIMES A DAY NEEDED FOR NAUSEA 06/20/2019 07/19/2019 Inactive ProAir HFA 90 mcg/actuation aerosol inhaler RxNorm: 984579 INHALE ONE PUFF BY MOUTH EVERY 4 HOURS FOR WHEEZING OR FOR SHORTNESS OF BREATH 06/20/2019 06/23/2019 Inactive Daliresp 500 mcg tablet RxNorm: 5791665 TAKE ONE TABLET BY MOUTH DAILY 06/12/2019 09/10/2019 Inactive dvjduxpi-ifyvipcry-iaftaohku 3.5 mg/mL-10,000 unit/mL- 1 % ear solution RxNorm: 174872 4 Drop(s) otic (ear) TID to left ear 06/05/2019 10/24/2019 Inac tive furosemide 40 mg tablet RxNorm: 137680 TAKE ONE TABLET BY MOUTH EVERY MORNING 05/26/2019 07/09/2019 Inactive Duragesic 100 mcg/hr transdermal patch RxNorm: 711048 2 Application TD Q48H for pain 05/16/2019 06/14/2019 Inactive oxycodone 15 mg tablet RxNorm: 1848276 1 Tablet(s) PO QID as nee ded for pain 05/10/2019 09/20/2019 Inactive doxycycline hyclate 100 mg capsule RxNorm: 9190677 1 Capsule(s) PO BID 05/03/2019 05/12/2019 Inactive prednisone 20 mg tablet RxNorm: 719926 1 Tablet(s) PO T ID for 3 days then 1 po BID for 3 days then one daily for 3 days 05/03/2019 07/11/2019 Inactiv e Ozempic 0.25 mg or 0.5 mg (2 mg/1.5 mL) subcutaneous p en injector RxNorm: 8395890 0.5 Milligram(s) SQ QW 05/03/2019 07/09/2019 Inactive fluconazole 100 mg tablet RxNorm: 819294 1 Tablet(s) PO QD 05/03/20 19 05/07/2019 Inactive Premarin 0.45 mg tablet RxNorm: 534702 TAKE ONE TABLET BY MOUTH DAILY 05/03/2019 10/23/2019 Inactive potassium chloride ER 20 mEq tablet,extended release RxNorm: 015757 1 Tablet(s) PO QD 04/27/2019 07/25/2019 Inactive potassium chloride ER 20 mEq tablet,extended release RxNorm: 622623 1 Tablet(s) PO QD 04/25/2019 04/26/2019 Inactive Compazine 10 mg tablet RxNorm: 736727 1 Tablet(s) PO QID as nee ded for nausea 04/25/2019 05/04/2019 Inactive ProAir HFA 90 mcg/actuation aerosol inhaler RxNorm: 173889 INHALE ONE PUFF BY MOUTH EVERY 4 HOURS FOR WHEEZING OR FOR SHORTNESS OF BREATH 04/12/2019 06/10/2019 Inactive Medrol (Aníbal) 4 mg tablets in a dose pack RxNorm: 535217 6 Tablet(s) PO QD --then as directed 04/11/2019 04/16/2019 Inactive Symbicort 160 mcg-4.5 mcg/actuation HFA aerosol inhaler RxNo rm: 2711801 2 Puff(s) INH BID 04/10/2019 10/06/2019 Inactive levothyroxine 50 mcg tablet RxNorm: 495677 1 Tablet(s) PO QD 201810/24/2019 Inactive gabapentin 300 mg capsule RxNorm: 813876 1 Capsule(s) PO BID 201810/02/2019 Inactive Symbicort 160 mcg-4.5 mcg/actuation HFA aerosol inhaler RxNo rm: 5444948 2 Puff(s) INH BID 04/06/2019 04/09/2019 Inactive oxycodone 15 mg tablet RxNorm: 0725385 1 Tablet(s) PO QID as nee ded for pain 04/05/2019 05/09/2019 Inactive levothyroxine 50 mcg tablet RxNorm: 854669 1 Tablet(s) PO QD 201804/09/2019 Inactive furosemide 40 mg tablet RxNorm: 079780 TAKE ONE TABLET BY MOUTH EVERY MORNING 03/21/2019 04/19/2019 Inactive levothyroxine 50 mcg tablet RxNorm: 754504 TAKE ONE TABLET BY M OUTH DAILY 03/21/2019 03/27/2019 Inactive Duragesic 100 mcg/hr transdermal patch RxNorm: 651227 2 Application TD Q48H for pain 03/13/2019 04/11/2019 Inactive oxycodone 15 mg tablet RxNorm: 0679607 1 Tablet(s) PO QID as nee ded for pain 03/06/2019 04/04/2019 Inactive Relistor 150 mg tablet RxNorm: 4454743 3 Tablet(s) PO QD 02/28/2019 0 05/28/2019 Inactive cyclobenzaprine 10 mg tablet RxNorm: 555178 1 Tablet(s) PO TID as needed 02/28/2019 05/28/2019 Inactive phentermine 37.5 mg tablet RxNorm: 144149 1 Tablet(s) PO QAM 201803/15/2019 Inactive Duragesic 100 mcg/hr transdermal patch RxNorm: 407504 2 Application TD Q48H for pain 02/09/2019 03/10/2019 Inactive Daliresp 500 mcg tablet RxNorm: 2126394 TAKE ONE TABLET BY MOUTH DAILY 01/31/2019 05/30/2019 Inactive Premarin 0.45 mg tablet RxNorm: 206884 1 Tablet(s) PO QD 01/31/2019 0 04/30/2019 Inactive fluoxetine 40 mg capsule RxNorm: 708622 Capsule(s) TAKE ONE CAPSULE BY MOUTH EVERY MORNING 01/31/2019 04/30/2019 Inactive levothyroxine 50 mcg tablet RxNorm: 127025 1 Tablet(s) PO QD 201804/10/2019 Inactive follow up in 3 weeks levothyroxine 50 mcg tablet RxNorm: 634186 1 Tablet(s) PO QD 201801/25/2019 Inactive follow up in 3 weeks potassium chloride ER 20 mEq tablet,extended release RxNorm: 331999 2 Tablet(s) PO BID 01/23/2019 01/08/2020 Inactive Synthroid 50 mcg tablet RxNorm: 551593 TAKE ONE TABLET BY MOUTH DAILY 01/16/2019 10/24/2019 Inactive potassium chloride ER 20 mEq tablet,extended release RxNorm: 042356 2 Tablet(s) PO BID 01/04/2019 01/22/2019 Inactive ProAir HFA 90 mcg/actuation aerosol inhaler RxNorm: 191020 INHALE ONE PUFF BY MOUTH EVERY 4 HOURS FOR WHEEZING OR SHORTNESS OF BREATH 01/04/201902/20 Inactive Request already responded to by other me ans (e.g. phone or fax) ProAir HFA 90 mcg/actuation aerosol inhaler RxNorm: 6998133 INHALE ONE PUFF BY MOUTH EVERY 4 HOURS FOR WHEEZING OR SHORTNESS OF BREATH 01/02/201912/23 Inactive gabapentin 300 mg capsule RxNorm: 459873 TAKE ONE CAPSULE BY MO UTH TWICE A DAY 12/30/2018 04/06/2019 Inactive furosemide 40 mg tablet RxNorm: 737094 1 Tablet(s) PO QAM 12/26/2018 02/23/2019 Inactive Compazine 10 mg tablet RxNorm: 884318 1 Tablet(s) PO QID as nee ded for nausea 12/07/2018 12/16/2018 Inactive metolazone 2.5 mg tablet RxNorm: 209357 TAKE ONE TABLET BY MOUT H EVERY MORNING 12/05/2018 01/03/2019 Inactive metformin ER 500 mg tablet,extended release 24 hr RxNorm: 86 0975 TAKE ONE TABLET BY MOUTH DAILY 12/05/2018 01/31/2020 Inactive Synthroid 50 mcg tablet RxNorm: 792051 1 Tablet(s) PO QD 11/25/2018 0 01/03/2019 Inactive DC any other synthroid strengths. Should be 50mcg only cyclobenzaprine 10 mg tablet RxNorm: 995867 TAKE ONE TA BLET BY MOUTH THREE TIMES A DAY NEEDED 11/09/2018 02/06/2019 Inactive metolazone 2.5 mg tablet RxNorm: 702538 1 Tablet(s) PO QAM repl aces 5mg dose 11/02/2018 12/01/2018 Inactive potassium chloride ER 20 mEq tablet,extended release RxNorm: 189573 2 Tablet(s) PO QD 2018 01/02/2019 Inactive Compazine 10 mg tablet RxNorm: 289352 1 Tablet(s) PO QID as nee ded for nausea 10/18/2018 12/07/2018 Inactive furosemide 40 mg tablet RxNorm: 147931 1 Tablet(s) PO QAM 10/12/2018 12/10/2018 Inactive ondansetron 8 mg disintegrating tablet RxNorm: 080503 1 Tablet(s) PO Q6H as needed 10/11/2018 10/17/2018 Inactive scopolamine 1 mg over 3 days transdermal patch RxNorm: 57953 2 1 Application TD behind ear. Take off after three days 10/11/2018 01/02/2019 Inactive furosemide 40 mg tablet RxNorm: 425370 1 Tablet(s) PO QAM 10/10/2018 12/26/2018 Inactive metolazone 5 mg tablet RxNorm: 120424 1 Tablet(s) PO QAM 10/06/2018 1 01/03/2018 Inactive metolazone 5 mg tablet RxNorm: 763473 1 Tablet(s) PO QAM 10/06/2018 1 12/05/2017 Inactive Xtampza ER 36 mg capsule sprinkle RxNorm: 9867421 1 Capsule(s) P O BID 10/05/2018 01/02/2019 Inactive Xtampza ER 36 mg capsule sprinkle RxNorm: 0182334 1 Capsule(s) P O BID 10/05/2018 02/12/2019 Inactive omeprazole 40 mg capsule,delayed release RxNorm: 597661 TAKE ONE CAPSULE BY MOUTH DAILY 10/03/2018 12/31/2018 Inactive Duragesic 100 mcg/hr transdermal patch RxNorm: 140027 2 Application TD Q48H for pain 09/30/2018 10/29/2018 Inactive Synthroid 50 mcg tablet RxNorm: 194038 1 Tablet(s) PO QD 09/29/2018 0 11/25/2018 Inactive DC any other synthroid strengths. Should be 50mcg only Synthroid 50 mcg tablet RxNorm: 291547 1 Tablet(s) PO QD 09/29/2018 1 11/28/2017 Inactive furosemide 40 mg tablet RxNorm: 997323 2 Tablet(s) PO Q AM for 1 week then every other day for 2 weeks 09/27/2018 10/12/2018 Inactive fluoxetine 40 mg capsule RxNorm: 847494 2 Capsule(s) PO QD 09/27/20 18 10/17/2018 Inactive potassium chloride ER 20 mEq tablet,extended release RxNorm: 051531 2 Tablet(s) PO QD for 1 week then every other day for 2 weeks 09/27/2018 2018 Inactive ProAir HFA 90 mcg/actuation aerosol inhaler RxNorm: 3078480 INHALE ONE PUFF BY MOUTH EVERY 4 HOURS FOR WHEEZING OR SHORTNESS OF BREATH 09/26/201811/23 Inactive Synthroid 75 mcg tablet RxNorm: 696678 1 Tablet(s) PO QD 09/09/2018 1 Inactive Synthroid 75 mcg tablet RxNorm: 893575 1 Tablet(s) PO QD 09/09/2018 1 11/28/2017 Inactive furosemide 40 mg tablet RxNorm: 200163 1 Tablet(s) PO QD 09/06/2018 1 Inactive potassium chloride ER 20 mEq tablet,extended release RxNorm: 098758 1 Tablet(s) PO QD 09/06/2018 09/19/2018 Inactive Duragesic 100 mcg/hr transdermal patch RxNorm: 455540 2 Application TD Q48H for pain 08/30/2018 09/28/2018 Inactive gabapentin 300 mg capsule RxNorm: 679939 TAKE ONE CAPSULE BY [facility] TWICE A DAY 08/23/2018 12/20/2018 Inactive Daliresp 500 mcg tablet RxNorm: 4693948 TAKE ONE TABLET BY MOUTH DAILY 08/23/2018 01/19/2019 Inactive Pulmicort 1 mg/2 mL suspension for nebulization RxNorm: 6168 19 USE ONE VIAL VIA NEBULIZER BY MOUTH TWICE A DAY 08/23/2018 07/11/2019 Inactive Synthroid 88 mcg tablet RxNorm: 622085 1 Tablet(s) PO QD 08/19/2018 Inactive Medrol (Aníbal) 4 mg tablets in a dose pack RxNorm: 365551 Tablet(s) PO take as directed 08/16/2018 09/05/2018 Inactive Relistor 150 mg tablet RxNorm: 5224998 3 Tablet(s) PO QD 08/16/2018 Inactive Zithromax Z-Aníbal 250 mg tablet RxNorm: 978323 Tablet(s) PO take as directed 08/16/2018 09/05/2018 Inactive cyclobenzaprine 10 mg tablet RxNorm: 777055 1 Tablet(s) PO TID as needed 08/16/2018 11/08/2018 Inactive Synthroid 88 mcg tablet RxNorm: 463104 1 Tablet(s) PO Q D NEEDS UPDATED LABS BEFORE FURTHER REFILLS 08/08/2018 08/19/2018 Inactive Premarin 0.45 mg tablet RxNorm: 955843 1 Tablet(s) PO QD 08/03/2018 0 01/31/2019 Inactive fluoxetine 20 mg capsule RxNorm: 134622 TAKE ONE CAPSULE BY BENOIT TH DAILY 08/03/2018 09/26/2018 Inactive Xtampza ER 36 mg capsule sprinkle RxNorm: 6491438 1 Capsule(s) P O BID 08/03/2018 09/01/2018 Inactive metformin ER 500 mg tablet,extended release 24 hr RxNorm: 86 0975 1 Tablet(s) PO QD 08/03/2018 10/31/2018 Inactive Symbicort 160 mcg-4.5 mcg/actuation HFA aerosol inhaler RxNo rm: 0757488 2 Puff(s) INH BID 08/03/2018 01/29/2019 Inactive Duragesic 100 mcg/hr transdermal patch RxNorm: 111484 2 Application TD Q48H for pain 07/29/2018 08/27/2018 Inactive ProAir HFA 90 mcg/actuation aerosol inhaler RxNorm: 531137 INHALE TWO PUFFS BY MOUTH EVERY 4 HOURS FOR WHEEZING OR SHORTNESS OF BREATH 07/27/201802/2018 Inactive Relistor 150 mg tablet RxNorm: 9346373 3 Tablet(s) PO QD 07/20/2018 0 08/15/2018 Inactive metformin ER 500 mg tablet,extended release 24 hr RxNorm: 86 0975 TAKE ONE TABLET BY MOUTH DAILY 07/08/2018 08/02/2018 Inactive fluoxetine 40 mg capsule RxNorm: 560893 TAKE ONE CAPSULE BY BENOIT TH EVERY MORNING 07/08/2018 10/05/2018 Inactive Xtampza ER 18 mg capsule sprinkle RxNorm: 9295464 1 Capsule(s) P O BID 07/08/2018 08/02/2018 Inactive Relistor 150 mg tablet RxNorm: 1275440 3 Tablet(s) PO QD 07/08/2018 0 07/12/2018 Inactive Synthroid 88 mcg tablet RxNorm: 165806 1 Tablet(s) PO Q D NEEDS UPDATED LABS BEFORE FURTHER REFILLS 06/23/2018 07/07/2018 Inactive fluoxetine 40 mg capsule RxNorm: 988433 TAKE ONE CAPSULE BY BENOIT TH EVERY MORNING 06/15/2018 09/26/2018 Inactive orphenadrine citrate ER 100 mg tablet,extended release RxNor m: 773983 TAKE ONE TABLET BY MOUTH TWICE A DAY FOR MUSCLE SPASM 06/15/2018 08/15/2018 Renu ctive Duragesic 100 mcg/hr transdermal patch RxNorm: 452784 2 Application TD Q48H for pain 05/30/2018 06/28/2018 Inactive ProAir HFA 90 mcg/actuation aerosol inhaler RxNorm: 183246 INHALE TWO PUFFS BY MOUTH EVERY 4 HOURS FOR WHEEZING OR SHORTNESS OF BREATH 05/19/201803/2018 Inactive Chantix Continuing Month Box 1 mg tablet RxNorm: 104874 TAKE ONE TABLET BY MOUTH TWICE A DAY 05/19/2018 08/15/2018 Inactive oxycodone 10 mg tablet RxNorm: 4846484 1-2 Tablet(s) PO QID as n eeded for pain 05/19/2018 07/07/2018 Inactive gabapentin 300 mg capsule RxNorm: 900608 TAKE ONE CAPSULE BY MO AKH TWICE A DAY 05/18/2018 07/16/2018 Inactive ProAir HFA 90 mcg/actuation aerosol inhaler RxNorm: 611024 INHALE TWO PUFFS BY MOUTH EVERY 4 HOURS FOR WHEEZING OR SHORTNESS OF BREATH 05/04/201804/23 Inactive Augmentin 500 mg-125 mg tablet RxNorm: 796555 1 Tablet(s) PO BID 05/03/2018 Inactive oxycodone 10 mg tablet RxNorm: 9730489 1-2 Tablet(s) PO QID as n eeded for pain 04/21/2018 05/18/2018 Inactive Synthroid 88 mcg tablet RxNorm: 468325 1 Tablet(s) PO QD 04/15/2018 0 08/08/2018 Inactive Symbicort 160 mcg-4.5 mcg/actuation HFA aerosol inhaler RxNo rm: 5522531 2 Puff(s) INH BID 04/15/2018 04/10/2019 Inactive Premarin 0.45 mg tablet RxNorm: 826247 1 Tablet(s) PO QD 04/15/2018 0 08/03/2018 Inactive ProAir HFA 90 mcg/actuation aerosol inhaler RxNorm: 188153 2 Puff(s) INH Q4H prn for wheezing or shortness of breath 04/15/2018 05/03/2018 Inactive metformin ER 500 mg tablet,extended release 24 hr RxNorm: 86 0975 1 Tablet(s) PO QD 04/11/2018 07/07/2018 Inactive omeprazole 40 mg capsule,delayed release RxNorm: 101753 TAKE ONE CAPSULE BY MOUTH DAILY 04/10/2018 06/08/2018 Inactive Synthroid 88 mcg tablet RxNorm: 635322 1 Tablet(s) PO QD 04/04/2018 0 04/14/2018 Inactive Synthroid 88 mcg tablet RxNorm: 454584 1 Tablet(s) PO QD 04/04/2018 0 04/03/2018 Inactive orphenadrine citrate ER 100 mg tablet,extended release RxNor m: 533673 1 Tablet(s) PO BID for muscle spasm 04/04/2018 05/03/2018 Inactive metformin ER 500 mg tablet,extended release 24 hr RxNorm: 86 0975 1 Tablet(s) PO QD NEEDS UPDATED LABS 03/31/2018 04/11/2018 Inactive doxycycline hyclate 100 mg capsule RxNorm: 9183018 1 Capsule(s) PO BID 03/31/2018 04/09/2018 Inactive prednisone 20 mg tablet RxNorm: 492266 3 Tablet(s) PO T ID for 3 days then 1 po BID for 3 days then one daily for 3 days 03/31/2018 07/06/2018 Inactiv e Chantix Continuing Month Box 1 mg tablet RxNorm: 729350 TAKE ONE TABLET BY MOUTH TWICE A DAY 03/25/2018 03/30/2018 Inactive oxycodone 10 mg tablet RxNorm: 8372336 1-2 Tablet(s) PO QID as n eeded for pain 03/21/2018 04/20/2018 Inactive Daliresp 500 mcg tablet RxNorm: 3386837 1 Tablet(s) PO QD 03/15/2018 08/22/2018 Inactive metformin ER 500 mg tablet,extended release 24 hr RxNorm: 86 0975 1 Tablet(s) PO QD NEEDS UPDATED LABS 03/14/2018 03/31/2018 Inactive nystatin 100,000 unit/mL oral suspension RxNorm: 761330 5 Chio liter(s) PO QID 03/02/2018 03/15/2018 Inactive nystatin 100,000 unit/mL oral suspension RxNorm: 726561 5 Chio liter(s) PO QID 03/02/2018 03/01/2018 Inactive oxycodone 10 mg tablet RxNorm: 3301070 1-2 Tablet(s) PO QID as n eeded for pain 02/16/2018 03/20/2018 Inactive fluoxetine 20 mg capsule RxNorm: 067317 1 Capsule(s) PO QD 02/15/20 18 08/02/2018 Inactive metformin ER 500 mg tablet,extended release 24 hr RxNorm: 86 0975 1 Tablet(s) PO QD Needs updated labs 02/14/2018 03/14/2018 Inactive cefdinir 300 mg capsule RxNorm: 418897 1 Capsule(s) PO BID 01/27/20 18 02/04/2018 Inactive orphenadrine citrate ER 100 mg tablet,extended release RxNor m: 819022 1 Tablet(s) PO BID for muscle spasm 01/26/2018 04/04/2018 Inactive gabapentin 300 mg capsule RxNorm: 807183 1 Capsule(s) PO BID 201704/17/2018 Inactive oxycodone 10 mg tablet RxNorm: 4383274 1-2 Tablet(s) PO QID as n eeded for pain 01/17/2018 02/15/2018 Inactive Duragesic 100 mcg/hr transdermal patch RxNorm: 836689 2 Application TD Q48H for pain 01/17/2018 02/15/2018 Inactive gabapentin 300 mg capsule RxNorm: 214085 TAKE ONE CAPSULE BY MO UTH TWICE A DAY 12/20/2017 01/18/2018 Inactive fluoxetine 40 mg capsule RxNorm: 571673 TAKE ONE CAPSULE BY BENOIT TH EVERY MORNING 12/15/2017 03/14/2018 Inactive OneTouch Ultra Test strips RxNorm: TEST DAILY 11/04/2017 02/01/2018 Inactive gabapentin 300 mg capsule RxNorm: 518047 1 Capsule(s) P O TID replaces BID dosing 10/26/2017 02/22/2018 Inactive oxycodone 10 mg tablet RxNorm: 9626159 1-2 Tablet(s) PO QID as n eeded for pain 10/18/2017 01/16/2018 Inactive Duragesic 100 mcg/hr transdermal patch RxNorm: 938331 2 Application TD Q48H for pain 10/18/2017 11/16/2017 Inactive gabapentin 300 mg capsule RxNorm: 438929 1 Capsule(s) PO BID 201610/25/2017 Inactive Abilify 5 mg tablet RxNorm: 997245 1 Tablet(s) PO QAM 09/23/201702/2017 Inactive gabapentin 300 mg capsule RxNorm: 896962 1 Capsule(s) PO BID 201610/17/2017 Inactive oxycodone 10 mg tablet RxNorm: 1863976 1-2 Tablet(s) PO QID as n eeded for pain 09/15/2017 10/17/2017 Inactive Duragesic 100 mcg/hr transdermal patch RxNorm: 251208 2 Application TD Q48H for pain 09/15/2017 10/14/2017 Inactive Duragesic 100 mcg/hr transdermal patch RxNorm: 847608 2 Application TD Q48H for pain 09/15/2017 10/24/2019 Inactive oxycodone 10 mg tablet RxNorm: 9453320 1-2 Tablet(s) PO QID as n eeded for pain 09/15/2017 08/15/2018 Inactive Daliresp 500 mcg tablet RxNorm: 6674399 1 Tablet(s) PO QD 09/06/2017 03/15/2018 Inactive Ventolin HFA 90 mcg/actuation aerosol inhaler RxNorm: 956039 2 Puff(s) INH Q4H as needed 09/02/2017 05/19/2018 Inactive oxycodone 10 mg tablet RxNorm: 5013946 1-2 Tablet(s) PO QID as n eeded for pain 08/17/2017 09/14/2017 Inactive Duragesic 100 mcg/hr transdermal patch RxNorm: 369552 2 Application TD Q48H for pain 08/17/2017 09/14/2017 Inactive fluoxetine 40 mg capsule RxNorm: 767488 Capsule(s) TAKE ONE CAPSULE BY MOUTH EVERY MORNING 08/17/2017 12/14/2017 Inactive Pulmicort 1 mg/2 mL suspension for nebulization RxNorm: 6168 19 1 Unit Dose INH BID Dx: COPD (J44.9) 08/16/2017 08/22/2018 Inactive gabapentin 300 mg capsule RxNorm: 303676 1 Capsule(s) PO QHS 201610/18/2017 Inactive fluoxetine 20 mg capsule RxNorm: 293111 1 Capsule(s) PO QD 08/12/20 17 02/14/2018 Inactive Abilify 2 mg tablet RxNorm: 803859 1 Tablet(s) PO QD TA KE ONE TABLET BY MOUTH DAILY 08/12/2017 10/25/2017 Inactive metformin ER 500 mg tablet,extended release 24 hr RxNorm: 86 0975 1 Tablet(s) PO QD 08/10/2017 02/14/2018 Inactive Synthroid 112 mcg tablet RxNorm: 282356 1 Tablet(s) PO QD 08/10/2017 04/15/2018 Inactive oxycodone 10 mg tablet RxNorm: 2190109 1-2 Tablet(s) PO QID as n eeded for pain 07/19/2017 08/16/2017 Inactive Duragesic 100 mcg/hr transdermal patch RxNorm: 276498 2 Application TD Q48H for pain 07/19/2017 08/16/2017 Inactive Ventolin HFA 90 mcg/actuation aerosol inhaler RxNorm: 483690 2 Puff(s) INH Q4H as needed 07/12/2017 09/02/2017 Inactive Abilify 2 mg tablet RxNorm: 138090 1 Tablet(s) PO QD TA KE ONE TABLET BY MOUTH DAILY 07/06/2017 08/11/2017 Inactive gabapentin 800 mg tablet RxNorm: 516535 1 Tablet(s) PO TID 06/22/20 17 07/05/2017 Inactive Chantix Starting Month Box 0.5 mg (11)-1 mg (42) table ts in dose pack RxNorm: 966242 TAKE BY MOUTH INSTRUCTED - PER PACKAGE INSTRUCTIONS 06/0707/04/2017 Inactive Ventolin HFA 90 mcg/actuation aerosol inhaler RxNorm: 208146 2 Puff(s) INH Q4H as needed 05/26/2017 07/12/2017 Inactive Duragesic 100 mcg/hr transdermal patch RxNorm: 520462 2 Application TD Q48H for pain 05/19/2017 06/17/2017 Inactive oxycodone 10 mg tablet RxNorm: 2918361 1-2 Tablet(s) PO QID as n eeded for pain 05/19/2017 07/18/2017 Inactive Abilify 2 mg tablet RxNorm: 099270 TAKE ONE TABLET BY MOUTH DAILY 0 05/10/2017 07/05/2017 Inactive Synthroid 112 mcg tablet RxNorm: 119074 1 Tablet(s) PO QD 05/06/2017 08/10/2017 Inactive metformin ER 500 mg tablet,extended release 24 hr RxNorm: 86 0975 1 Tablet(s) PO QD 05/06/2017 08/10/2017 Inactive Topamax 100 mg tablet RxNorm: 744509 1 Tablet(s) PO QHS 05/06/2017 Inactive Premarin 0.45 mg tablet RxNorm: 459011 1 Tablet(s) PO QD 05/06/2017 0 04/15/2018 Inactive orphenadrine citrate ER 100 mg tablet,extended release RxNor m: 366709 1 Tablet(s) PO TID for muscle spasm--replaces methocarbamol 04/29/2017 Inactive oxycodone 10 mg tablet RxNorm: 2541163 1-2 Tablet(s) PO QID as n eeded for pain 04/21/2017 05/18/2017 Inactive Duragesic 100 mcg/hr transdermal patch RxNorm: 447447 2 Application TD Q48H for pain 04/21/2017 05/18/2017 Inactive fluoxetine 40 mg capsule RxNorm: 398039 Capsule(s) TAKE ONE CAPSULE BY MOUTH EVERY MORNING 04/20/2017 08/17/2017 Inactive Ventolin HFA 90 mcg/actuation aerosol inhaler RxNorm: 298677 2 Puff(s) INH Q4H as needed 04/05/2017 05/26/2017 Inactive Symbicort 160 mcg-4.5 mcg/actuation HFA aerosol inhaler RxNo rm: 1806902 2 Puff(s) INH BID 03/30/2017 04/15/2018 Inactive Spiriva with HandiHaler 18 mcg and inhalation capsules RxNor m: 708825 1 Capsule(s) INH QD USING HANDIHALER 03/30/2017 02/12/2019 Inactive Duragesic 100 mcg/hr transdermal patch RxNorm: 706134 2 Application TD Q48H for pain 03/18/2017 04/16/2017 Inactive oxycodone 10 mg tablet RxNorm: 8667293 1-2 Tablet(s) PO QID as n eeded for pain 03/18/2017 04/20/2017 Inactive metformin ER 500 mg tablet,extended release 24 hr RxNorm: 86 0975 Tablet(s) TAKE ONE TABLET BY MOUTH DAILY 03/01/2017 05/06/2017 Inactive Premarin 0.45 mg tablet RxNorm: 076112 Tablet(s) TAKE ONE TABLE T BY MOUTH DAILY 03/01/2017 05/06/2017 Inactive Synthroid 112 mcg tablet RxNorm: 411001 Tablet(s) TAKE ONE TABLET BY MOUTH DAILY 03/01/2017 05/06/2017 Inactive Daliresp 500 mcg tablet RxNorm: 6824877 1 Tablet(s) PO QD 03/01/2017 09/06/2017 Inactive 16.2 mg-0.1037 mg-0.0194 mg tablet RxNorm: 7163841 Tablet(s) PO PRN for gas and cramping 02/23/2017 04/28/2017 Inactive TAKE TWO TABLET S BY MOUTH THREE TIMES A DAY NEEDED FOR GAS AND CRAMPING gabapentin 800 mg tablet RxNorm: 605312 1 Tablet(s) PO TID repl aces 600mg 02/23/2017 04/28/2017 Inactive Duragesic 100 mcg/hr transdermal patch RxNorm: 384752 2 Application TD Q48H for pain 02/17/2017 03/17/2017 Inactive fluoxetine 20 mg capsule RxNorm: 002762 1 Capsule(s) PO QD 02/18/20 17 08/12/2017 Inactive oxycodone 20 mg tablet RxNorm: 7739846 1 Tablet(s) PO QID as nee ded for pain 02/17/2017 03/17/2017 Inactive Ventolin HFA 90 mcg/actuation aerosol inhaler RxNorm: 807810 INHALE TWO PUFFS BY MOUTH EVERY 4 HOURS NEEDED 02/15/2017 04/05/2017 Inactive Silvadene 1 % topical cream RxNorm: 643395 1 Application TOP BI D to burn area 02/01/2017 09/22/2017 Inactive Topamax 100 mg tablet RxNorm: 194744 TAKE ONE TABLET BY MOUTH EVERY NIGHT AT BEDTIME 01/29/2017 05/06/2017 Inactive Chantix Starting Month Box 0.5 mg (11)-1 mg (42) table ts in dose pack RxNorm: 545261 Tablet(s) PO as directed 01/29/2017 06/01/2017 Inactive Abilify 2 mg tablet RxNorm: 307393 TAKE ONE TABLET BY MOUTH DAILY 0 01/26/2017 04/25/2017 Inactive Chantix Starting Month Box 0.5 mg (11)-1 mg (42) table ts in dose pack RxNorm: 076932 Tablet(s) PO as directed 01/20/2017 01/28/2017 Inactive gabapentin 600 mg tablet RxNorm: 252370 1 Tablet(s) PO TID 01/21/20 17 02/22/2017 Inactive Chantix Continuing Month Box 1 mg tablet RxNorm: 210690 1 Table t(s) PO BID 12/31/2016 06/01/2017 Inactive Spiriva with HandiHaler 18 mcg and inhalation capsules RxNor m: 366103 INHALE THE ENTIRE CONTENTS OF 1 CAPSULE ONCE A DAY USING HANDIHALER 12/31/201607/2017 Inactive Synthroid 112 mcg tablet RxNorm: 250701 TAKE ONE TABLET BY MOUT H DAILY 12/30/2016 03/01/2017 Inactive metformin ER 500 mg tablet,extended release 24 hr RxNorm: 86 0975 TAKE ONE TABLET BY MOUTH DAILY 12/30/2016 03/01/2017 Inactive Premarin 0.45 mg tablet RxNorm: 769279 TAKE ONE TABLET BY MOUTH DAILY 12/30/2016 03/01/2017 Inactive omeprazole 40 mg capsule,delayed release RxNorm: 937871 TAKE ONE CAPSULE BY MOUTH DAILY 12/30/2016 01/25/2018 Inactive Ventolin HFA 90 mcg/actuation aerosol inhaler RxNorm: 861369 INHALE TWO PUFFS BY MOUTH EVERY 4 HOURS NEEDED 12/28/2016 02/13/2017 Inactive fluoxetine 40 mg capsule RxNorm: 801930 TAKE ONE CAPSULE BY BENOIT TH EVERY MORNING 12/15/2016 04/20/2017 Inactive Chantix Continuing Month Box 1 mg tablet RxNorm: 252799 TAKE ONE TABLET BY MOUTH TWICE A DAY 12/04/2016 12/31/2016 Inactive doxycycline hyclate 100 mg capsule RxNorm: 4031379 1 Capsule(s) PO BID 12/01/2016 12/07/2016 Inactive Levaquin 750 mg tablet RxNorm: 606471 1 Tablet(s) PO QD 12/01/2016 Inactive Abilify 2 mg tablet RxNorm: 653494 TAKE ONE TABLET BY MOUTH DAILY 0 11/25/2016 11/30/2016 Inactive Ventolin HFA 90 mcg/actuation aerosol inhaler RxNorm: 043634 INHALE TWO PUFFS BY MOUTH EVERY 4 HOURS NEEDED 11/02/2016 12/19/2016 Inactive Chantix Continuing Month Box 1 mg tablet RxNorm: 085790 Tablet(s) PO as directed 10/30/2016 12/03/2016 Inactive Symbicort 160 mcg-4.5 mcg/actuation HFA aerosol inhaler RxNo rm: 6630240 INHALE TWO PUFFS TWO TIMES A DAY 10/30/2016 03/30/2017 Inactive Abilify 2 mg tablet RxNorm: 337658 1 Tablet(s) PO QD 10/27/201611/24 Inactive amoxicillin 500 mg capsule RxNorm: 721697 1 Capsule(s) PO TID 10/1410/23/2016 Inactive amoxicillin 500 mg capsule RxNorm: 704751 1 Capsule(s) PO TID 10/1410/13/2016 Inactive Synthroid 112 mcg tablet RxNorm: 313922 TAKE ONE TABLET BY MOUT H DAILY 09/28/2016 12/29/2016 Inactive Topamax 100 mg tablet RxNorm: 266786 TAKE ONE TABLET BY MOUTH EVERY NIGHT AT BEDTIME 09/28/2016 01/28/2017 Inactive Premarin 0.45 mg tablet RxNorm: 325842 TAKE ONE TABLET BY MOUTH DAILY 09/28/2016 12/29/2016 Inactive metformin ER 500 mg tablet,extended release 24 hr RxNorm: 86 0975 TAKE ONE TABLET BY MOUTH DAILY 09/28/2016 12/29/2016 Inactive Ventolin HFA 90 mcg/actuation aerosol inhaler RxNorm: 259019 INHALE TWO PUFFS BY MOUTH EVERY 4 HOURS NEEDED 09/22/2016 10/23/2016 Inactive Pulmicort 1 mg/2 mL suspension for nebulization RxNorm: 6168 19 1 Unit Dose INH BID Dx: COPD (J44.9) 09/10/2016 08/16/2017 Inactive Pulmicort 1 mg/2 mL suspension for nebulization RxNorm: 6168 19 1 Unit Dose INH BID 09/10/2016 09/09/2016 Inactive Brovana 15 mcg/2 mL solution for nebulization RxNorm: 346225 1 Unit Dose INH BID Dx: COPD (J44.9) 09/10/2016 01/25/2018 Inactive Brovana 15 mcg/2 mL solution for nebulization RxNorm: 470774 1 Unit Dose INH BID 09/10/2016 09/09/2016 Inactive ipratropium-albuterol 0.5 mg-3 mg(2.5 mg base)/3 mL ne bulization soln RxNorm: 9752226 1 Unit Dose INH Q4H as needed Dx: COPD (J44.9) 09/10/2016 0 02/12/2019 Inactive orphenadrine citrate ER 100 mg tablet,extended release RxNor m: 248368 1 Tablet(s) PO BID for muscle spasm--replaces methocarbamol 09/09/2016 Inactive Chantix Continuing Month Box 1 mg tablet RxNorm: 704390 Tablet(s) PO as directed 09/09/2016 10/30/2016 Inactive orphenadrine citrate ER 100 mg tablet,extended release RxNor m: 266352 1 Tablet(s) PO BID for muscle spasm 09/09/2016 09/08/2016 Inactive Spiriva with HandiHaler 18 mcg and inhalation capsules RxNor m: 919967 INHALE THE ENTIRE CONTENTS OF 1 CAPSULE ONCE A DAY USING HANDIHALER 09/01/201605/2017 Inactive Daliresp 500 mcg tablet RxNorm: 5665883 1 Tablet(s) PO QD 08/27/2016 03/01/2017 Inactive prednisone 20 mg tablet RxNorm: 062643 3 Tablet(s) PO T ID for 3 days then 1 po BID for 3 days then one daily for 3 days 08/26/2016 04/28/2017 Inactiv e Wellbutrin XL 300 mg 24 hr tablet, extended release RxNorm: 065524 TAKE ONE TABLET BY MOUTH EVERY MORNING 07/29/2016 10/26/2016 Inactive gabapentin 600 mg tablet RxNorm: 118255 1 Tablet(s) PO BID 06/26/20 16 12/22/2016 Inactive fluoxetine 40 mg capsule RxNorm: 524035 TAKE ONE CAPSULE BY BENOIT TH EVERY MORNING 06/24/2016 11/20/2016 Inactive Duragesic 100 mcg/hr transdermal patch RxNorm: 727672 2 Application TD Q48H for pain 06/05/2016 07/04/2016 Inactive oxycodone 10 mg tablet RxNorm: 2960951 1-2 Tablet(s) PO QID as n eeded for pain 06/05/2016 03/17/2017 Inactive Belladonna-Phenobarbital 48 mg tablet,extended release RxNor m: 2 Tablet(s) PO TID 06/05/2016 01/19/2017 Inactive Premarin 0.45 mg tablet RxNorm: 966151 TAKE ONE TABLET BY MOUTH DAILY 05/27/2016 09/23/2016 Inactive Topamax 100 mg tablet RxNorm: 637115 TAKE ONE TABLET BY MOUTH EVERY NIGHT AT BEDTIME 05/27/2016 09/27/2016 Inactive Synthroid 112 mcg tablet RxNorm: 767597 TAKE ONE TABLET BY MOUT H DAILY 05/27/2016 09/23/2016 Inactive metformin ER 500 mg tablet,extended release 24 hr RxNorm: 86 0975 TAKE ONE TABLET BY MOUTH DAILY 05/27/2016 09/23/2016 Inactive Symbicort 160 mcg-4.5 mcg/actuation HFA aerosol inhaler RxNo rm: 2459733 INHALE TWO PUFFS TWO TIMES A DAY 05/27/2016 10/23/2016 Inactive Ventolin HFA 90 mcg/actuation aerosol inhaler RxNorm: 532805 INHALE TWO PUFFS BY MOUTH EVERY 4 HOURS NEEDED 05/21/2016 07/07/2016 Inactive omeprazole 40 mg capsule,delayed release RxNorm: 823955 1 Capsu le(s) PO QD 05/06/2016 08/03/2016 Inactive metformin ER 500 mg tablet,extended release 24 hr RxNorm: 86 0975 TAKE ONE TABLET BY MOUTH DAILY 04/23/2016 05/22/2016 Inactive methocarbamol 750 mg tablet RxNorm: 123737 2 Tablet(s) PO TID as needed for muscle spasm 04/23/2016 09/08/2016 Inactive Synthroid 112 mcg tablet RxNorm: 877743 TAKE ONE TABLET BY MOUT H DAILY 04/23/2016 05/22/2016 Inactive Spiriva with HandiHaler 18 mcg and inhalation capsules RxNor m: 040891 INHALE THE ENTIRE CONTENTS OF 1 CAPSULE ONCE A DAY USING HANDIHALER 04/09/201608/2016 Inactive Diflucan 100 mg tablet RxNorm: 388215 1 Tablet(s) PO QD 04/08/2016 Inactive doxycycline hyclate 100 mg capsule RxNorm: 7581431 1 Capsule(s) PO BID 04/08/2016 04/17/2016 Inactive doxycycline hyclate 100 mg capsule RxNorm: 2802077 1 Capsule(s) PO BID 04/08/2016 04/07/2016 Inactive Diflucan 100 mg tablet RxNorm: 085613 1 Tablet(s) PO QD 04/08/2016 Inactive ondansetron HCl 4 mg tablet RxNorm: 446387 1 Tablet(s) PO Q4H as needed for nausea and vomiting 04/08/2016 09/22/2017 Inactive gabapentin 600 mg tablet RxNorm: 789626 TAKE ONE TABLET BY MOUT H TWICE A DAY 03/24/2016 06/25/2016 Inactive Synthroid 112 mcg tablet RxNorm: 418569 TAKE ONE TABLET BY MOUT H DAILY 02/25/2016 04/22/2016 Inactive Levaquin 500 mg tablet RxNorm: 142323 1 Tablet(s) PO QD 01/23/2016 Inactive prednisone 20 mg tablet RxNorm: 238643 1 Tablet(s) PO T ID for 3 days then 1 po BID for 3 days then one daily for 3 days 01/23/2016 08/25/2016 Inactiv e [employer] Ultra Test strips RxNorm: TEST BLOOD SUGAR ONCE DAILY 250.00 01/09/2016 11/04/2017 Inactive methocarbamol 750 mg tablet RxNorm: 998898 2 Tablet(s) PO TID as needed for muscle spasm 01/09/2016 04/23/2016 Inactive lactulose 10 gram/15 mL oral solution RxNorm: 566931 [address](s) PO QD 01/09/2016 09/22/2017 Inactive TAKE 1 TABLESPOON BY MOUTH ONCE DAILY metformin ER 500 mg tablet,extended release 24 hr RxNorm: 86 0975 1 Tablet(s) PO QD 12/26/2015 04/22/2016 Inactive fluoxetine 20 mg capsule RxNorm: 966710 1 Capsule(s) PO QD 12/23/19 16 06/19/2016 Inactive Premarin 0.45 mg tablet RxNorm: 650501 TAKE ONE TABLET BY MOUTH DAILY 12/23/2015 05/20/2016 Inactive fluoxetine 40 mg capsule RxNorm: 281006 1 Capsule(s) PO QD 12/23/19 16 06/19/2016 Inactive TAKE ONE CAPSULE BY MOUTH EV JANKI MORNING azithromycin 500 mg tablet RxNorm: 133007 1 Tablet(s) PO QD 016 12/19/2015 Inactive Zofran 4 mg tablet RxNorm: 738628 1 Tablet(s) PO Q4H prn nausea /vomiting 12/13/2015 03/30/2018 Inactive azithromycin 500 mg tablet RxNorm: 206325 1 Tablet(s) PO QD 016 12/12/2015 Inactive Duragesic 100 mcg/hr transdermal patch RxNorm: 823682 2 Application TD Q48H for pain 12/09/2015 01/07/2016 Inactive oxycodone 10 mg tablet RxNorm: 3889031 1-2 Tablet(s) PO QID as n eeded for pain 12/09/2015 06/04/2016 Inactive Bactroban 2 % topical cream RxNorm: 094943 Application TOP BID 11/2208/25/2016 Inactive doxycycline hyclate 100 mg capsule RxNorm: 5286738 1 Capsule(s) PO BID 12/03/2015 12/12/2015 Inactive Topamax 100 mg tablet RxNorm: 251513 TAKE ONE TABLET BY MOUTH EVERY NIGHT AT BEDTIME 11/25/2015 05/22/2016 Inactive Symbicort 160 mcg-4.5 mcg/actuation HFA aerosol inhaler RxNo rm: 9927304 INHALE TWO PUFFS TWO TIMES A DAY 11/25/2015 05/22/2016 Inactive Synthroid 112 mcg tablet RxNorm: 951256 Tablet(s) TAKE ONE TABLET BY MOUTH DAILY 11/25/2015 02/22/2016 Inactive omeprazole 40 mg capsule,delayed release RxNorm: 462190 1 Capsu le(s) PO QD 11/12/2015 05/05/2016 Inactive oxycodone 10 mg tablet RxNorm: 1274806 1-2 Tablet(s) PO QID as n eeded for pain 11/05/2015 12/08/2015 Inactive Duragesic 100 mcg/hr transdermal patch RxNorm: 479737 2 Application TD Q48H for pain 11/05/2015 12/04/2015 Inactive omeprazole 40 mg capsule,delayed release RxNorm: 860238 1 Capsu le(s) PO QD 10/07/2015 11/11/2015 Inactive Januvia 100 mg tablet RxNorm: 340794 TAKE ONE TABLET BY MOUTH DAILY 09/11/2015 12/25/2015 Inactive Zithromax 500 mg tablet RxNorm: 027234 1 Tablet(s) PO QD 09/10/2015 1 Inactive prednisone 20 mg tablet RxNorm: 452667 1 Tablet(s) PO T ID for 3 days then 1 po BID for 3 days then one daily for 3 days 09/10/2015 08/25/2016 Inactiv e Wellbutrin XL 300 mg 24 hr tablet, extended release RxNorm: 873610 1 Tablet(s) PO QAM 09/10/2015 12/02/2015 Inactive Topamax 100 mg tablet RxNorm: 317687 TAKE ONE TABLET BY MOUTH EVERY NIGHT AT BEDTIME 09/02/2015 11/24/2015 Inactive Synthroid 112 mcg tablet RxNorm: 212304 TAKE ONE TABLET BY MOUT H DAILY 09/02/2015 11/25/2015 Inactive methocarbamol 750 mg tablet RxNorm: 152967 2 Tablet(s) PO TID as needed for muscle spasm 08/15/2015 01/09/2016 Inactive Wellbutrin XL 150 mg 24 hr tablet, extended release RxNorm: 668759 TAKE ONE TABLET BY MOUTH EVERY MORNING 08/13/2015 08/13/2015 Inactive gabapentin 600 mg tablet RxNorm: 050001 1 Tablet(s) PO BID 08/13/20 15 02/08/2016 Inactive Wellbutrin XL 300 mg 24 hr tablet, extended release RxNorm: 073910 1 Tablet(s) PO QAM 08/06/2015 09/09/2015 Inactive Wellbutrin XL 150 mg 24 hr tablet, extended release RxNorm: 838638 1 Tablet(s) PO QAM 07/18/2015 08/05/2015 Inactive prednisone 20 mg tablet RxNorm: 093287 1 Tablet(s) PO BID 07/18/2015 07/22/2015 Inactive doxycycline hyclate 100 mg tablet,delayed release RxNorm: 43 4018 1 Tablet(s) PO BID 07/18/2015 07/27/2015 Inactive pravastatin 40 mg tablet RxNorm: 548938 1 Tablet(s) PO QD NEEDS FASTING LAB 07/15/2015 07/14/2015 Inactive pravastatin 40 mg tablet RxNorm: 736913 1 Tablet(s) PO QD NEEDS FASTING LAB 07/15/2015 01/25/2018 Inactive Ventolin HFA 90 mcg/actuation aerosol inhaler RxNorm: 161791 2 Puff(s) INH Q4H 07/08/2015 07/07/2015 Inactive prn Premarin 0.45 mg tablet RxNorm: 773348 1 Tablet(s) PO QD 07/01/2015 0 12/22/2015 Inactive pravastatin 40 mg tablet RxNorm: 550853 1 Tablet(s) PO QD NEEDS FASTING LAB 06/14/2015 07/15/2015 Inactive Ventolin HFA 90 mcg/actuation aerosol inhaler RxNorm: 6678591 2 Puff(s) INH Q4H 06/06/2015 07/08/2015 Inactive prn albuterol sulfate 2.5 mg/3 mL (0.083 %) solution for n ebulization RxNorm: 061792 1 Unit Dose INH QID 05/30/2015 No Stop Date Active Duragesic 100 mcg/hr transdermal patch RxNorm: 115942 2 Application TD Q48H for pain 04/29/2015 05/28/2015 Inactive gabapentin 600 mg tablet RxNorm: 896522 1 Tablet(s) PO BID 04/11/20 15 08/13/2015 Inactive Onglyza 5 mg tablet RxNorm: 726073 1 Tablet(s) PO QD for blood suga r 04/10/2015 04/15/2015 Inactive [Brand Copay Card: RxBIN:[id number] PCN:CRISTIANA RxGRP:[id number] ID#:[id number]] methocarbamol 750 mg tablet RxNorm: 909025 2 Tablet(s) PO TID as needed for muscle spasm 03/28/2015 08/15/2015 Inactive pravastatin 40 mg tablet RxNorm: 444945 1 Tablet(s) PO QD 03/19/2015 03/18/2015 Inactive pravastatin 40 mg tablet RxNorm: 942795 1 Tablet(s) PO QD 03/19/2015 06/14/2015 Inactive lactulose 10 gram/15 mL oral solution RxNorm: 452847 [address]s) PO QD 03/07/2015 01/09/2016 Inactive TAKE 1 TABLESPOON BY MOUTH ONCE DAILY oxycodone 20 mg tablet RxNorm: 7739041 1 Tablet(s) PO QID as nee ded for pain 03/05/2015 07/08/2015 Inactive Topamax 100 mg tablet RxNorm: 038915 1 Tablet(s) PO QHS TAKE ONE TABLET BY MOUTH AT BEDTIME 02/25/2015 02/12/2019 Inactive metformin ER 500 mg tablet,extended release 24 hr RxNorm: 86 0975 1 Tablet(s) PO QD 02/11/2015 03/04/2015 Inactive take one tablet by mouth every day Daliresp 500 mcg tablet RxNorm: 4029823 1 Tablet(s) PO QD 02/11/2015 08/09/2015 Inactive Endocet 10 mg-325 mg tablet RxNorm: 5295019 1 Tablet(s) PO Q4H as needed for pain 01/23/2015 01/23/2015 Inactive gabapentin 600 mg tablet RxNorm: 408540 1 Tablet(s) PO BID 01/23/20 15 04/11/2015 Inactive methocarbamol 750 mg tablet RxNorm: 672289 2 Tablet(s) PO TID as needed for muscle spasm 01/15/2015 02/13/2015 Inactive fluoxetine 40 mg capsule RxNorm: 162674 1 Capsule(s) PO QD 01/14/20 15 12/23/2015 Inactive TAKE ONE CAPSULE BY MOUTH EV JANKI MORNING fluoxetine 20 mg capsule RxNorm: 813074 1 Capsule(s) PO QD 01/14/20 15 12/23/2015 Inactive Premarin 0.45 mg tablet RxNorm: 855168 1 Tablet(s) PO QD 01/02/2015 0 07/01/2015 Inactive Endocet 10 mg-325 mg tablet RxNorm: 2233584 1-2 Tablet(s) PO Q4H 02/12/2019 Inactive PRN PAIN Duragesic 100 mcg/hr transdermal patch RxNorm: 101834 2 Application TD Q48H for pain 12/25/2014 01/23/2015 Inactive Topamax 100 mg tablet RxNorm: 324383 1 Tablet(s) PO QHS TAKE ONE TABLET BY MOUTH AT BEDTIME 12/25/2014 02/24/2015 Inactive Tudorza Pressair 400 mcg/actuation breath activated RxNorm: 2968218 1 BID INHALE ONE PUFF INTO LUNGS TWO TIMES A DAY 12/17/2014 05/15/2015 Inactive Endocet 10 mg-325 mg tablet RxNorm: 9207956 1-2 Tablet(s) PO Q4H 12/19/2014 Inactive PRN PAIN Duragesic 100 mcg/hr transdermal patch RxNorm: 189014 2 Application TD Q48H for pain 11/20/2014 12/24/2014 Inactive [employer] Ultra Test strips RxNorm: TEST BLOOD SUGAR ONCE DAILY 250.00 11/16/2014 01/08/2016 Inactive omeprazole 40 mg capsule,delayed release RxNorm: 206680 1 Capsu le(s) PO QD 11/13/2014 11/12/2015 Inactive metformin ER 500 mg tablet,extended release 24 hr RxNorm: 86 0975 1 Tablet(s) PO QD 11/12/2014 02/11/2015 Inactive take one tablet by mouth every day Symbicort 160 mcg-4.5 mcg/actuation HFA aerosol inhaler RxNo rm: 4389748 2 Puff(s) INH BID 11/12/2014 03/11/2015 Inactive INHALE 2 PUFFS O RALLY TWO TIMES A DAY gabapentin 800 mg tablet RxNorm: 232372 1 Tablet(s) PO QD TAKE ONE TABLET BY MOUTH ONCE A DAY 10/22/2014 01/01/2015 Inactive Endocet 10 mg-325 mg tablet RxNorm: 4326384 1-2 Tablet(s) PO Q4H 11/15/2014 Inactive PRN PAIN Duragesic 100 mcg/hr transdermal patch RxNorm: 522267 2 Application TD Q48H for pain 10/17/2014 11/19/2014 Inactive gabapentin 800 mg tablet RxNorm: 772342 1 Tablet(s) PO QD TAKE ONE TABLET BY MOUTH ONCE A DAY 10/04/2014 10/21/2014 Inactive Premarin 0.9 mg tablet RxNorm: 795093 1 Tablet(s) PO QD TAKE ONE TABLET BY MOUTH ONCE A DAY 10/04/2014 01/01/2015 Inactive Spiriva with HandiHaler 18 mcg & inhalation capsules RxNorm: 337448 1 Capsule(s) INH QD 10/03/2014 04/30/2015 Inactive Levaquin 500 mg tablet RxNorm: 586403 1 Tablet(s) PO QD 10/03/2014 Inactive prednisone 20 mg tablet RxNorm: 430180 1 Tablet(s) PO QD 10/03/2014 1 12/09/2013 Inactive Duragesic 100 mcg/hr transdermal patch RxNorm: 330915 2 Application TD Q48H for pain 09/18/2014 10/16/2014 Inactive Endocet 10 mg-325 mg tablet RxNorm: 5690449 1-2 Tablet(s) PO Q4H 10/16/2014 Inactive PRN PAIN Synthroid 112 mcg tablet RxNorm: 953455 1 Tablet(s) QD 09/10/2014 Inactive Synthroid 112 mcg tablet RxNorm: 710015 TAKE ONE TABLET BY MOUTH ONE TIME A DAY. NEEDS LABS 09/10/2014 02/06/2015 Inactive omeprazole 40 mg capsule,delayed release RxNorm: 780921 1 Capsu le(s) PO QD 09/03/2014 11/13/2014 Inactive omeprazole 40 mg capsule,delayed release RxNorm: 740644 1 Capsu le(s) PO QD 09/03/2014 09/02/2014 Inactive Spiriva with HandiHaler 18 mcg & inhalation capsules RxNorm: 110895 1 Capsule(s) INH QD 08/27/2014 10/02/2014 Inactive gabapentin 600 mg tablet RxNorm: 925006 1 Tablet(s) PO BID 08/27/20 14 10/22/2014 Inactive Endocet 10 mg-325 mg tablet RxNorm: 6835330 1-2 Tablet(s) PO Q4H 09/17/2014 Inactive PRN PAIN fentanyl 100 mcg/hr transdermal patch RxNorm: 564355 1 Unit Dos e TD QD 08/21/2014 09/19/2014 Inactive Daliresp 500 mcg tablet RxNorm: 7390070 1 Tablet(s) PO QD 08/13/2014 02/11/2015 Inactive Synthroid 112 mcg tablet RxNorm: 359344 TAKE ONE TABLET BY MOUTH ONE TIME A DAY. NEEDS LABS 08/10/2014 09/10/2014 Inactive Endocet 10 mg-325 mg tablet RxNorm: 8783494 1-2 Tablet(s) PO Q4H 08/17/2014 Inactive PRN PAIN Duragesic 100 mcg/hr transdermal patch RxNorm: 361835 2 Application TD Q48H for pain 07/19/2014 09/17/2014 Inactive fluoxetine 40 mg capsule RxNorm: 888254 1 Capsule(s) PO QD 07/17/20 14 01/14/2015 Inactive TAKE ONE CAPSULE BY MOUTH EV JANKI MORNING fluoxetine 20 mg capsule RxNorm: 408660 1 Capsule(s) PO QD 07/17/20 14 01/14/2015 Inactive Spiriva with HandiHaler 18 mcg & inhalation capsules RxNorm: 900770 1 Capsule(s) INH QD 07/17/2014 08/26/2014 Inactive INHALE CONTENTS OF 1 CAPSULE(S) WITH HANDIHALER ONCE DAILY Zofran 4 mg tablet RxNorm: 297998 1 Tablet(s) PO Q4H prn nausea 07/25/2014 Inactive Synthroid 112 mcg tablet RxNorm: 720925 1 Tablet(s) PO QD 07/09/2014 07/09/2014 Inactive methocarbamol 750 mg tablet RxNorm: 427761 2 Tablet(s) PO TID as needed for muscle spasm 07/09/2014 09/06/2014 Inactive Synthroid 112 mcg tablet RxNorm: 980901 1 Tablet(s) PO QD - nee d labs 07/09/2014 08/07/2014 Inactive Medrol (Aníbal) 4 mg tablets in a dose pack RxNorm: 210633 6 Tablet(s) PO QD --then as directed 07/03/2014 07/08/2014 Inactive Tudorza Pressair 400 mcg/actuation breath activated RxNorm: 8226854 1 Puff(s) INH BID 07/03/2014 12/17/2014 Inactive cefdinir 300 mg capsule RxNorm: 931361 1 Capsule(s) PO BID 07/03/20 14 07/12/2014 Inactive Topamax 100 mg tablet RxNorm: 528694 Tablet(s) TAKE ONE TABLET BY MOUTH AT BEDTIME 07/02/2014 02/25/2015 Inactive Duragesic 100 mcg/hr transdermal patch RxNorm: 929139 2 Application TD Q48H for pain 06/25/2014 07/18/2014 Inactive Endocet 10 mg-325 mg tablet RxNorm: 2249528 1-2 Tablet(s) PO Q4H 07/18/2014 Inactive PRN PAIN metformin ER 500 mg tablet,extended release 24 hr RxNorm: 86 0975 1 Tablet(s) PO QD Needs labs 06/18/2014 07/01/2014 Inactive take one tablet by mouth every day Duragesic 100 mcg/hr transdermal patch RxNorm: 384386 2 Application TD Q48H for pain 05/22/2014 06/24/2014 Inactive Synthroid 112 mcg tablet RxNorm: 765209 1 Tablet(s) PO QD 05/22/2014 07/09/2014 Inactive Endocet 10 mg-325 mg tablet RxNorm: 7126341 1-2 Tablet(s) PO Q4H 06/20/2014 Inactive PRN PAIN Endocet 10 mg-325 mg tablet RxNorm: 8736203 1-2 Tablet(s) PO Q4H 05/21/2014 Inactive PRN PAIN Duragesic 100 mcg/hr transdermal patch RxNorm: 732872 2 Application TD Q48H for pain 04/25/2014 05/21/2014 Inactive Daliresp 500 mcg tablet RxNorm: 6390890 1 Tablet(s) PO QD 04/24/2014 08/13/2014 Inactive Symbicort 160 mcg-4.5 mcg/actuation HFA aerosol inhaler RxNo rm: 8213593 2 Puff(s) INH BID 04/24/2014 08/21/2014 Inactive INHALE 2 PUFFS O RALLY TWO TIMES A DAY metformin ER 500 mg tablet,extended release 24 hr RxNorm: 86 0975 1 Tablet(s) PO QD 04/24/2014 11/12/2014 Inactive TAKE ONE TABLET BY MOUTH EVERY DAY [AttnRPh:Saving Apply/Adjudicate RxGRP:LDMGRP RxBIN:[id number] RxPCN:2012 PCode:01 ID#:[id number]] Symbicort 160 mcg-4.5 mcg/actuation HFA aerosol inhaler RxNo rm: 0285667 2 Puff(s) INH BID 04/24/2014 11/12/2014 Inactive INHALE 2 PUFFS O RALLY TWO TIMES A DAY Premarin 0.9 mg tablet RxNorm: 274537 1 Tablet(s) PO QD 04/24/2014 Inactive TAKE ONE TABLET BY MOUTH EVERY DAY metformin ER 500 mg tablet,extended release 24 hr RxNorm: 86 0975 1 Tablet(s) PO QD Needs labs 04/24/2014 06/18/2014 Inactive TAKE ONE TABLET BY MOUTH EVERY DAY [AttnRPh:Saving Apply/Adjudicate RxGRP:LDMGRP RxBIN:[id number] RxPCN:2012 PCode:01 ID#:[id number]] gabapentin 800 mg tablet RxNorm: 055063 1 Tablet(s) PO QD 04/24/2014 10/04/2014 Inactive TAKE ONE TABLET BY MOUTH EVERY DAY Topamax 100 mg tablet RxNorm: 106663 1 Tablet(s) PO QHS 04/17/2014 Inactive Topamax 100 mg tablet RxNorm: 224839 TAKE ONE TABLET BY MOUTH A T BEDTIME 04/17/2014 07/01/2014 Inactive Tudorza Pressair 400 mcg/actuation breath activated RxNorm: 3990099 1 Puff(s) INH BID 04/11/2014 07/02/2014 Inactive Duragesic 100 mcg/hr transdermal patch RxNorm: 522850 2 Application TD Q48H for pain 03/27/2014 04/24/2014 Inactive Endocet 10 mg-325 mg tablet RxNorm: 0990754 1-2 Tablet(s) PO Q4H 04/24/2014 Inactive PRN PAIN Robaxin 750 mg tablet RxNorm: 565517 2 Tablet(s) PO TID as need ed for spasm 02/23/2014 03/28/2015 Inactive Duragesic 100 mcg/hr transdermal patch RxNorm: 467118 2 Application TD Q48H for pain 02/23/2014 No Stop Date Active Endocet 10 mg-325 mg tablet RxNorm: 2282992 1-2 Tablet(s) PO Q4H 03/23/2014 Inactive PRN PAIN Synthroid 112 mcg tablet RxNorm: 797608 1 Tablet(s) PO QD TAKE ONE TABLET BY MOUTH EVERY DAY 02/15/2014 05/22/2014 Inactive Zithromax 500 mg tablet RxNorm: 269543 1 Tablet(s) PO QD 01/30/2014 0 02/05/2014 Inactive Diflucan 100 mg tablet RxNorm: 510234 1 Tablet(s) PO QD 01/30/2014 Inactive prednisone 20 mg tablet RxNorm: 826528 1 Tablet(s) PO BID 01/30/2014 02/05/2014 Inactive fluoxetine 40 mg capsule RxNorm: 052515 1 Capsule(s) PO QD 01/23/20 14 07/16/2014 Inactive TAKE ONE CAPSULE BY MOUTH EV JANKI MORNING fluoxetine 40 mg capsule RxNorm: 766235 1 Capsule(s) PO QD 01/23/20 14 07/17/2014 Inactive TAKE ONE CAPSULE BY MOUTH EV JANKI MORNING cefdinir 300 mg capsule RxNorm: 944717 1 Capsule(s) PO BID 01/16/20 14 01/29/2014 Inactive Zithromax 500 mg tablet RxNorm: 347289 1 Tablet(s) PO QD 01/16/2014 0 01/22/2014 Inactive prednisone 20 mg tablet RxNorm: 467691 1 Tablet(s) PO BID 01/16/2014 01/22/2014 Inactive Spiriva with HandiHaler 18 mcg and inhalation capsules RxNor m: 174345 1 Capsule(s) INH QD 12/18/2013 07/17/2014 Inactive INHALE CONTENT S OF 1 CAPSULE(S) WITH HANDIHALER ONCE DAILY fluoxetine 20 mg capsule RxNorm: 453664 1 Capsule(s) PO QD 12/18/19 14 06/15/2014 Inactive Spiriva with HandiHaler 18 mcg & inhalation capsules RxNorm: 052884 1 Capsule(s) INH QD 12/18/2013 06/15/2014 Inactive INHALE CONTENTS OF 1 CAPSULE(S) WITH HANDIHALER ONCE DAILY fluoxetine 20 mg capsule RxNorm: 879084 1 Capsule(s) PO QD 12/18/19 14 07/17/2014 Inactive cefdinir 300 mg capsule RxNorm: 364946 2 Capsule(s) PO QD 12/12/2013 12/21/2013 Inactive Duragesic 100 mcg/hr transdermal patch RxNorm: 002698 2 Application TD Q48H for pain 12/08/2013 12/07/2013 Inactive Topamax 100 mg tablet RxNorm: 276204 1 Tablet(s) PO QHS 12/04/2013 Inactive Endocet 10 mg-325 mg tablet RxNorm: 8010429 1-2 Tablet(s) PO Q4H 12/26/2013 Inactive PRN PAIN Robaxin 750 mg tablet RxNorm: 322972 2 Tablet(s) PO TID as need ed for spasm 11/07/2013 01/05/2014 Inactive gabapentin 800 mg tablet RxNorm: 491603 1 Tablet(s) PO QD 10/16/2013 04/24/2014 Inactive TAKE ONE TABLET BY MOUTH EVERY DAY Symbicort 160 mcg-4.5 mcg/actuation HFA aerosol inhaler RxNo rm: 2142027 2 Puff(s) INH BID 10/16/2013 04/24/2014 Inactive INHALE 2 PUFFS O RALLY TWO TIMES A DAY Premarin 0.9 mg tablet RxNorm: 476799 1 Tablet(s) PO QD 10/16/2013 Inactive TAKE ONE TABLET BY MOUTH EVERY DAY metformin ER 500 mg tablet,extended release 24 hr RxNorm: 86 0975 1 Tablet(s) PO QD 10/16/2013 04/24/2014 Inactive TAKE ONE TABLET BY MOUTH EVERY DAY Daliresp 500 mcg tablet RxNorm: 8590792 1 Tablet(s) PO QD 10/16/2013 04/24/2014 Inactive Robaxin 750 mg tablet RxNorm: 592399 2 Tablet(s) PO TID as need ed for spasm 10/10/2013 11/06/2013 Inactive Duragesic 100 mcg/hr transdermal patch RxNorm: 892709 2 Application TD Q48H for pain 10/09/2013 No Stop Date Active Soma 350 mg tablet RxNorm: 774260 1 Tablet(s) PO TID 09/27/201310/09 Inactive TAKE ONE TABLET BY MOUTH THREE TIMES A D AY lactulose 10 gram/15 mL oral solution RxNorm: 254091 [address](s) PO QD 09/13/2013 03/07/2015 Inactive TAKE 1 TABLESPOON BY MOUTH ONCE DAILY Duragesic 100 mcg/hr transdermal patch RxNorm: 704018 2 Application TD Q48H for pain 09/06/2013 No Stop Date Active Endocet 10 mg-325 mg tablet RxNorm: 3858912 1-2 Tablet(s) PO Q4H 09/27/2013 Inactive PRN PAIN lancets 28 gauge RxNorm: Miscellaneous As needed for blo od glucose sticks 08/24/2013 No Stop Date Active 16.2 mg-0.1037 mg-0.0194 mg tablet RxNorm: 6687699 Tablet(s) PO PRN for gas and cramping 08/24/2013 01/19/2017 Inactive TAKE TWO TABLET S BY MOUTH THREE TIMES A DAY NEEDED FOR GAS AND CRAMPING Topamax 100 mg tablet RxNorm: 641087 1 Tablet(s) PO QHS 07/31/2013 Inactive Diflucan 100 mg tablet RxNorm: 675463 1 Tablet(s) PO QD 07/27/2013 Inactive cefdinir 300 mg capsule RxNorm: 257519 1 Capsule(s) PO BID 07/26/20 13 08/08/2013 Inactive Daliresp 500 mcg tablet RxNorm: 3823947 1 Tablet(s) PO QD 07/25/2013 10/15/2013 Inactive fluoxetine 40 mg capsule RxNorm: 420079 1 Capsule(s) PO QD 07/25/20 13 01/22/2014 Inactive TAKE ONE CAPSULE BY MOUTH EV JANKI MORNING Senokot-S 8.6 mg-50 mg tablet RxNorm: 5738496 1 Tablet(s) PO BID 10/25/2013 Inactive doxycycline hyclate 100 mg capsule RxNorm: 7277092 1 Capsule(s) PO BID 06/28/2013 07/07/2013 Inactive prednisone 20 mg tablet RxNorm: 495275 1 Tablet(s) PO BID 06/28/2013 07/04/2013 Inactive Zofran 4 mg tablet RxNorm: 874878 1 Tablet(s) PO Q4H prn nausea 03/201307/05/2013 Inactive Spiriva with HandiHaler 18 mcg & inhalation capsules RxNorm: 574282 1 Capsule(s) INH QD 06/26/2013 12/18/2013 Inactive INHALE CONTENTS OF 1 CAPSULE(S) WITH HANDIHALER ONCE DAILY Synthroid 112 mcg tablet RxNorm: 895786 1 Tablet(s) PO QD TAKE ONE TABLET BY MOUTH EVERY DAY 06/19/2013 02/15/2014 Inactive fluoxetine 20 mg capsule RxNorm: 554659 1 Capsule(s) PO QD 06/19/20 13 12/18/2013 Inactive Ventolin HFA 90 mcg/actuation Aerosol Inhaler RxNorm: 4333683 2 Puff(s) INH Q4H 06/05/2013 No Stop Date Active prn Soma 350 mg tablet RxNorm: 139182 1 Tablet(s) PO TID 06/05/201307/04 Inactive TAKE ONE TABLET BY MOUTH THREE TIMES A D AY prednisone 20 mg tablet RxNorm: 588560 1 Tablet(s) PO QD 05/31/2013 0 06/06/2013 Inactive Topamax 100 mg tablet RxNorm: 616426 1 Tablet(s) PO QHS 05/22/2013 Inactive Levaquin 500 mg tablet RxNorm: 890302 1 Tablet(s) PO QD 05/03/2013 Inactive Diflucan 100 mg tablet RxNorm: 935428 1 Tablet(s) PO QD 05/03/2013 Inactive Daliresp 500 mcg tablet RxNorm: 4137937 1 Tablet(s) PO QD 05/01/2013 07/24/2013 Inactive Daliresp 500 mcg tablet RxNorm: 8559161 1 Tablet(s) PO QD 05/01/2013 04/30/2013 Inactive gabapentin 800 mg tablet RxNorm: 392275 1 Tablet(s) PO QD 04/10/2013 10/06/2013 Inactive TAKE ONE TABLET BY MOUTH EVERY DAY metformin ER 500 mg tablet,extended release 24 hr RxNorm: 86 0977 1 Tablet(s) PO QD 04/10/2013 10/06/2013 Inactive TAKE ONE TABLET BY MOUTH EVERY DAY Premarin 0.9 mg tablet RxNorm: 030312 1 Tablet(s) PO QD 04/10/2013 Inactive TAKE ONE TABLET BY MOUTH EVERY DAY Symbicort 160 mcg-4.5 mcg/actuation HFA aerosol inhaler RxNo rm: 8561082 2 Puff(s) INH BID 04/10/2013 10/06/2013 Inactive INHALE 2 PUFFS O RALLY TWO TIMES A DAY Synthroid 112 mcg tablet RxNorm: 638773 1 Tablet(s) PO QD TAKE ONE TABLET BY MOUTH EVERY DAY 04/10/2013 06/18/2013 Inactive Ventolin HFA 90 mcg/actuation Aerosol Inhaler RxNorm: 617431 2 Puff(s) INH Q4H 04/10/2013 No Stop Date Active prn fentanyl 100 mcg/hr transdermal patch RxNorm: 061963 1 Unit Dos e TD QD 04/03/2013 05/02/2013 Inactive Endocet 10 mg-325 mg tablet RxNorm: 3118535 1-2 Tablet(s) PO Q4H 05/02/2013 Inactive PRN PAIN Topamax 100 mg tablet RxNorm: 780591 1 Tablet(s) PO QHS 03/13/2013 Inactive Reglan 10 mg tablet RxNorm: 378740 1 Tablet(s) PO QID b efore meals and at bedtime 03/13/2013 04/09/2015 Inactive fluoxetine 20 mg capsule RxNorm: 435764 1 Capsule(s) PO QD 02/28/20 13 05/27/2013 Inactive Ventolin HFA 90 mcg/actuation Aerosol Inhaler RxNorm: 453132 2 Puff(s) INH Q4H 02/13/2013 No Stop Date Active prn fluoxetine 40 mg capsule RxNorm: 809425 1 Capsule(s) PO QD 01/31/20 13 07/24/2013 Inactive TAKE ONE CAPSULE BY MOUTH EV JANKI MORNING Soma 350 mg tablet RxNorm: 216655 1 Tablet(s) PO TID 01/20/201302/18 Inactive TAKE ONE TABLET BY MOUTH THREE TIMES A D AY Endocet 10 mg-325 mg tablet RxNorm: 7610605 1-2 Tablet(s) PO Q4H 02/06/2013 Inactive PRN PAIN MS Contin 200 mg tablet,extended release RxNorm: 571939 1 Table t(s) PO BID 01/18/2013 02/06/2013 Inactive Ventolin HFA 90 mcg/actuation Aerosol Inhaler RxNorm: 434466 2 Puff(s) INH Q4H 01/04/2013 No Stop Date Active prn Spiriva with HandiHaler 18 mcg & inhalation capsules RxNorm: 772842 1 Capsule(s) INH QD 12/29/2012 06/25/2013 Inactive INHALE CONTENTS OF 1 CAPSULE(S) WITH HANDIHALER ONCE DAILY Spiriva with HandiHaler 18 mcg & inhalation capsules RxNorm: 519871 1 Capsule(s) INH QD 12/26/2012 12/28/2012 Inactive INHALE CONTENTS OF 1 CAPSULE(S) WITH HANDIHALER ONCE DAILY Synthroid 112 mcg tablet RxNorm: 357245 Tablet(s) PO TA KE ONE TABLET BY MOUTH EVERY DAY 12/26/2012 04/09/2013 Inactive Endocet 10 mg-325 mg tablet RxNorm: 3739739 1-2 Tablet(s) PO Q4H 01/17/2013 Inactive PRN PAIN MS Contin 200 mg tablet,extended release RxNorm: 146198 1 Table t(s) PO BID 12/21/2012 01/17/2013 Inactive fluoxetine 20 mg capsule RxNorm: 294567 1 Capsule(s) PO QD 12/06/19 13 02/26/2013 Inactive Synthroid 112 mcg tablet RxNorm: 795953 1 Tablet(s) PO QD 12/06/2012 02/12/2019 Inactive TAKE ONE TABLET BY MOUTH EVERY DAY Ventolin HFA 90 mcg/actuation Aerosol Inhaler RxNorm: 608353 2 Puff(s) INH Q4H 12/06/2012 No Stop Date Active prn Reglan 10 mg tablet RxNorm: 704730 1 Tablet(s) PO QID b efore meals and at bedtime 11/24/2012 03/12/2013 Inactive Topamax 100 mg tablet RxNorm: 572768 1 Tablet(s) PO QHS 11/16/2012 Inactive Ventolin HFA 90 mcg/actuation Aerosol Inhaler RxNorm: 680099 2 Puff(s) INH Q4H 11/09/2012 No Stop Date Active prn gabapentin 800 mg tablet RxNorm: 790225 1 Tablet(s) PO QD 10/27/2012 04/09/2013 Inactive TAKE ONE TABLET BY MOUTH EVERY DAY metformin ER 500 mg tablet,extended release 24 hr RxNorm: 86 0977 1 Tablet(s) PO QD 10/27/2012 04/09/2013 Inactive TAKE ONE TABLET BY MOUTH EVERY DAY Symbicort 160 mcg-4.5 mcg/actuation HFA Aerosol Inhaler RxNo rm: 8413448 2 Puff(s) INH BID 10/27/2012 04/09/2013 Inactive INHALE 2 PUFFS O RALLY TWO TIMES A DAY Premarin 0.9 mg tablet RxNorm: 552462 1 Tablet(s) PO QD 10/27/2012 Inactive TAKE ONE TABLET BY MOUTH EVERY DAY Endocet 10 mg-325 mg tablet RxNorm: 2483364 1-2 Tablet(s) PO Q4H 11/24/2012 Inactive PRN PAIN MS Contin 200 mg tablet,extended release RxNorm: 994940 1 Table t(s) PO BID 10/26/2012 11/24/2012 Inactive Soma 350 mg tablet RxNorm: 322361 1 Tablet(s) PO TID 10/04/201211/02 Inactive TAKE ONE TABLET BY MOUTH THREE TIMES A D AY Ventolin HFA 90 mcg/actuation Aerosol Inhaler RxNorm: 810372 2 Puff(s) INH Q4H 10/03/2012 No Stop Date Active prn Daliresp 500 mcg tablet RxNorm: 6661959 1 Tablet(s) PO QD 09/28/2012 09/27/2012 Inactive Daliresp 500 mcg tablet RxNorm: 1808808 1 Tablet(s) PO QD 09/28/2012 04/25/2013 Inactive fluoxetine 20 mg capsule RxNorm: 556464 1 Capsule(s) PO QD 09/05/2012/06/2012 Inactive Topamax 50 mg tablet RxNorm: 220906 Tablet(s) PO for 1w k then 1 po q HS for 1wk then 2 po q HS 08/29/2012 09/27/2012 Inactive TAKE 1/2 TABLET BY MOUTH AT BEDTIME FOR 1 WEEK, THEN 1 TABLET AT BEDTIME FOR 1 WEEK, THEN 2 TABLETS AT BEDTIME Topamax 100 mg tablet RxNorm: 820775 1 Tablet(s) PO QHS 08/29/2012 Inactive Ventolin HFA 90 mcg/actuation Aerosol Inhaler RxNorm: 666981 2 Puff(s) INH Q4H 08/19/2012 No Stop Date Active prn Ventolin HFA 90 mcg/actuation Aerosol Inhaler RxNorm: 472768 2 Puff(s) INH Q4H 08/15/2012 No Stop Date Active prn Synthroid 112 mcg tablet RxNorm: 716241 1 Tablet(s) PO QD 08/10/2012 11/07/2012 Inactive TAKE ONE TABLET BY MOUTH EVERY DAY Synthroid 112 mcg tablet RxNorm: 075435 1 Tablet(s) PO QD 08/01/2012 08/09/2012 Inactive TAKE ONE TABLET BY MOUTH EVERY DAY Reglan 10 mg tablet RxNorm: 036111 1 Tablet(s) PO QID b efore meals and at bedtime 08/01/2012 11/23/2012 Inactive fluoxetine 40 mg capsule RxNorm: 821714 1 Capsule(s) PO QD 08/01/20 12 01/27/2013 Inactive TAKE ONE CAPSULE BY MOUTH EV JANIK MORNING Ventolin HFA 90 mcg/actuation Aerosol Inhaler RxNorm: 304971 2 Puff(s) INH Q4H 08/01/2012 No Stop Date Active prn Soma 350 mg tablet RxNorm: 865327 1 Tablet(s) PO TID 07/20/201208/18 Inactive TAKE ONE TABLET BY MOUTH THREE TIMES A D AY Spiriva with HandiHaler 18 mcg & inhalation capsules RxNorm: 005890 1 Capsule(s) INH 07/01/2012 12/25/2012 Inactive INHALE CONTENTS OF 1 CAPSULE(S) WITH HANDIHALER ONCE DAILY Zithromax 250 mg Tab RxNorm: 875434 2 Tablet(s) PO QD 06/28/201206/22 Inactive MS Contin 200 mg tablet,extended release RxNorm: 249741 1 Table t(s) PO BID 06/28/2012 07/27/2012 Inactive Endocet 10 mg-325 mg tablet RxNorm: 7460949 1-2 Tablet(s) PO Q4H 07/27/2012 Inactive PRN PAIN Topamax 100 mg tablet RxNorm: 524177 1 Tablet(s) PO QHS 06/28/2012 Inactive 16.2 mg-0.1037 mg-0.0194 mg tablet RxNorm: 6707377 Tablet(s) PO PRN for gas and cramping 06/08/2012 08/23/2013 Inactive TAKE TWO TABLET S BY MOUTH THREE TIMES A DAY NEEDED FOR GAS AND CRAMPING Ventolin HFA 90 mcg/actuation Aerosol Inhaler RxNorm: 634838 2 Puff(s) INH Q4H 05/23/2012 No Stop Date Active prn Ventolin HFA 90 mcg/actuation Aerosol Inhaler RxNorm: 986562 2 Puff(s) INH Q4H 05/11/2012 No Stop Date Active prn Synthroid 112 mcg tablet RxNorm: 356634 1 Tablet(s) PO QD 05/09/2012 07/31/2012 Inactive TAKE ONE TABLET BY MOUTH EVERY DAY gabapentin 800 mg tablet RxNorm: 098335 1 Tablet(s) PO QD 05/09/2012 10/26/2012 Inactive TAKE ONE TABLET BY MOUTH EVERY DAY fluoxetine 40 mg capsule RxNorm: 670708 1 Capsule(s) PO QD 05/09/2007/31/2012 Inactive TAKE ONE CAPSULE BY MOUTH EV JANKI MORNING metformin ER 500 mg tablet,extended release 24 hr RxNorm: 86 0977 1 Tablet(s) PO QD 05/09/2012 10/26/2012 Inactive TAKE ONE TABLET BY MOUTH EVERY DAY Premarin 0.9 mg tablet RxNorm: 832790 1 Tablet(s) PO QD 05/09/2012 Inactive TAKE ONE TABLET BY MOUTH EVERY DAY Symbicort 160 mcg-4.5 mcg/actuation HFA Aerosol Inhaler RxNo rm: 8865605 2 Puff(s) INH BID 05/09/2012 10/26/2012 Inactive INHALE 2 PUFFS O RALLY TWO TIMES A DAY Endocet 10 mg-325 mg Tab RxNorm: 9777753 1-2 Tablet(s) PO Q4H 04/2705/26/2012 Inactive PRN PAIN MS Contin 200 mg Tab RxNorm: 070292 1 Tablet(s) PO BID 04/26/201202/2012 Inactive Ventolin HFA 90 mcg/actuation Aerosol Inhaler RxNorm: 672814 2 Puff(s) INH Q4H 04/25/2012 05/10/2012 Inactive prn Soma 350 mg tablet RxNorm: 746487 2 Tablet(s) PO TID 04/19/201207/19 Inactive TAKE ONE TABLET BY MOUTH THREE TIMES A D AY Ventolin HFA 90 mcg/actuation Aerosol Inhaler RxNorm: 275175 2 Puff(s) INH Q4H 04/12/2012 04/24/2012 Inactive prn Reglan 10 mg tablet RxNorm: 341805 1 Tablet(s) PO QID b efore meals and at bedtime 04/11/2012 07/31/2012 Inactive MS Contin 200 mg Tab RxNorm: 379874 1 Tablet(s) PO BID 03/30/201202/2012 Inactive Endocet 10 mg-325 mg Tab RxNorm: 9175092 1-2 Tablet(s) PO Q4H 03/3004/26/2012 Inactive PRN PAIN MS Contin 200 mg Tab RxNorm: 685534 1 Tablet(s) PO BID 03/02/201206/2012 Inactive Endocet 10 mg-325 mg Tab RxNorm: 5071398 1-2 Tablet(s) PO Q4H 03/0203/29/2012 Inactive PRN PAIN Daliresp 500 mcg tablet RxNorm: 7723199 1 Tablet(s) PO QD 03/01/2012 09/28/2012 Inactive MS Contin 200 mg Tab RxNorm: 476191 1 Tablet(s) PO BID 02/02/201208/2012 Inactive Endocet 10 mg-325 mg Tab RxNorm: 6195485 1-2 Tablet(s) PO Q4H 02/0103/01/2012 Inactive PRN PAIN fluoxetine 40 mg capsule RxNorm: 999102 1 Capsule(s) PO QD 02/02/2008/01/2012 Inactive TAKE ONE CAPSULE BY MOUTH EV JANKI MORNING Synthroid 112 mcg Tab RxNorm: 525502 1 Tablet(s) PO QD 01/18/2012 Inactive TAKE ONE TABLET BY MOUTH EVERY DAY lactulose 10 gram/15 mL oral solution RxNorm: 394122 [address]s) PO QD 01/18/2012 No Stop Date Active TAKE 1 TABLESPOON BY MOUTH ONCE DAILY Ventolin HFA 90 mcg/actuation Aerosol Inhaler RxNorm: 049714 2 Puff(s) INH Q4H 01/18/2012 04/11/2012 Inactive prn MS Contin 200 mg Tab RxNorm: 516470 1 Tablet(s) PO BID 01/05/201210/2012 Inactive Endocet 10 mg-325 mg Tab RxNorm: 4140036 1-2 Tablet(s) PO Q4H 01/0502/01/2012 Inactive PRN PAIN ProAir HFA 90 mcg/Actuation Aerosol Inhaler RxNorm: 450173 2 Pu ff(s) INH Q4H 12/21/2011 No Stop Date Active prn for wheezing or shortness of breath Spiriva with HandiHaler 18 mcg & inhalation Caps RxNorm: 580 261 1 Capsule(s) INH 12/21/2011 06/30/2012 Inactive INHALE CONTENTS OF 1 CAPSULE(S) WITH HANDIHALER ONCE DAILY Reglan 10 mg Tab RxNorm: 948266 1 Tablet(s) PO QID before meals and at bedtime 12/21/2011 04/10/2012 Inactive Synthroid 112 mcg Tab RxNorm: 101093 1 Tablet(s) PO QD 12/21/2011 Inactive TAKE ONE TABLET BY MOUTH EVERY DAY Endocet 10 mg-325 mg Tab RxNorm: 0827906 1-2 Tablet(s) PO Q4H 11/2512/24/2011 Inactive PRN PAIN MS Contin 200 mg Tab RxNorm: 581351 1 Tablet(s) PO BID 11/25/201112/2011 Inactive lactulose 10 gram/15 mL Oral Soln RxNorm: 919994 Milliliter(s) PO 1 No Stop Date Active TAKE 1 TABLESPOON BY MOUTH O NCE DAILY lactulose 10 gram/15 mL Oral Soln RxNorm: 229385 Milliliter(s) PO 1 12/12/2010 11/20/2011 Inactive TAKE 1 TABLESPOON BY MOUTH O NCE DAILY Premarin 0.9 mg Tab RxNorm: 504615 1 Tablet(s) PO QD 10/12/201105/08 Inactive TAKE ONE TABLET BY MOUTH EVERY DAY fluoxetine 20 mg capsule RxNorm: 612290 1 Capsule(s) PO QD 10/12/2009/05/2012 Inactive TAKE ONE CAPSULE BY MOUTH EV JANKI DAY Synthroid 112 mcg Tab RxNorm: 290778 1 Tablet(s) PO QD 10/12/2011 Inactive TAKE ONE TABLET BY MOUTH EVERY DAY metformin ER 500 mg 24 hr Tab RxNorm: 662923 1 Tablet(s) PO QD 09/2311/10/2011 Inactive TAKE ONE TABLET BY MOUTH GLYNN RY DAY Synthroid 112 mcg Tab RxNorm: 601423 1 Tablet(s) PO QD 10/12/2011 Inactive TAKE ONE TABLET BY MOUTH EVERY DAY metformin ER 500 mg 24 hr Tab RxNorm: 554935 1 Tablet(s) PO QD 09/2310/11/2011 Inactive TAKE ONE TABLET BY MOUTH GLYNN Prevacid 30 mg Cap RxNorm: 327965 Capsule(s) PO 10/12/2011 01/25/2012 Inactive TAKE ONE CAPSULE BY MOUTH EVERY DAY Symbicort 160 mcg-4.5 mcg/actuation HFA Aerosol Inhaler RxNo rm: 9720061 2 Puff(s) INH BID 10/12/2011 05/08/2012 Inactive INHALE 2 PUFFS O RALLY TWO TIMES A DAY gabapentin 800 mg Tab RxNorm: 578324 1 Tablet(s) PO QD 10/12/2011 Inactive TAKE ONE TABLET BY MOUTH EVERY DAY MS Contin 200 mg Tab RxNorm: 395803 1 Tablet(s) PO BID 09/23/201111/2010 Inactive Endocet 10 mg-325 mg Tab RxNorm: 1952743 1-2 Tablet(s) PO Q4H 09/2310/22/2011 Inactive PRN PAIN Endocet 10 mg-325 mg Tab RxNorm: 4871056 1-2 Tablet(s) PO Q4H 08/2109/19/2011 Inactive PRN PAIN MS Contin 200 mg Tab RxNorm: 762261 1 Tablet(s) PO BID 08/21/2011 Inactive Diflucan 100 mg Tab RxNorm: 406904 1 Tablet(s) PO QD 08/10/201108/16 Inactive cefdinir 300 mg Cap RxNorm: 529651 2 Capsule(s) PO QD 08/10/201107/24 Inactive Reglan 10 mg Tab RxNorm: 144135 1 Tablet(s) PO AC & HS 07/15/2011 Inactive Endocet 10 mg-325 mg Tab RxNorm: 6524446 1-2 Tablet(s) PO Q4H 07/1508/13/2011 Inactive PRN PAIN One Touch Ultra Test strips RxNorm: Miscellaneous BID 06/11/2011 1 01/16/2014 Inactive TEST TWO TIMES A DAY lactulose 10 gram/15 mL Oral Soln RxNorm: 215613 Milliliter(s) PO 0 06/10/2011 10/11/2011 Inactive TAKE 1 TABLESPOON BY MOUTH O NCE DAILY Chantix Continuing Month Aníbal 1 mg Tab RxNorm: 014929 Tablet(s) PO 0 06/10/2011 11/02/2011 Inactive TAKE DIRECTED - PER PACK[employer] GE INSTRUCTIONS fluoxetine 40 mg Cap RxNorm: 645776 Capsule(s) PO 06/10/2011 02/02/20 Inactive TAKE ONE CAPSULE BY MOUTH EVERY MORNING Chantix Continuing Month Aníbal 1 mg Tab RxNorm: 304498 Ta blet(s) PO TAKE DIRECTED - PER PACKAGE INSTRUCTIONS 05/13/2011 06/09/2011 Inactive Soma 350 mg Tab RxNorm: 432350 Tablet(s) PO TAKE ON E TABLET BY MOUTH THREE TIMES A DAY 05/13/2011 04/18/2012 Inactive Chantix Continuing Month Aníbal 1 mg Tab RxNorm: 168976 Ta blet(s) PO as directed per package instructions. 04/22/2011 05/12/2011 Inactive Symbicort 160 mcg-4.5 mcg/Actuation HFA Aerosol Inhaler RxNo rm: 5089868 HFA Aerosol Inhaler INH INHALE 2 PUFFS ORALLY TWO TIMES A DAY 04/13/2011 Inactive Synthroid 112 mcg Tab RxNorm: 899467 Tablet(s) PO TAKE ONE TABLET BY MOUTH EVERY DAY 04/13/2011 10/12/2011 Inactive Premarin 0.9 mg Tab RxNorm: 380727 Tablet(s) PO TAKE ON E TABLET BY MOUTH EVERY DAY 04/13/2011 10/12/2011 Inactive gabapentin 800 mg Tab RxNorm: 799530 Tablet(s) PO TAKE ONE TABLET BY MOUTH EVERY DAY 04/13/2011 10/12/2011 Inactive Prevacid 30 mg Cap RxNorm: 088992 1 Capsule(s) PO QD 04/13/201110/11 Inactive Spiriva with HandiHaler 18 mcg & inhalation Caps RxNorm: 580 261 Capsule(s) INH INHALE CONTENTS OF 1 CAPSULE(S) WITH HANDIHALER ONCE DAILY 04/13/2011 12/21/2011 Inactive metformin ER 500 mg 24 hr Tab RxNorm: 895819 Tablet(s) PO TAKE ONE TABLET BY MOUTH EVERY DAY 04/13/2011 10/12/2011 Inactive Soma 350 mg Tab RxNorm: 002973 1 Tablet(s) PO QID 03/30/2011 02/13/20 19 Inactive fluoxetine 20 mg Cap RxNorm: 524136 Capsule(s) PO TAKE ONE CAPSULE BY MOUTH EVERY DAY 03/25/2011 10/12/2011 Inactive cefdinir 300 mg Cap RxNorm: 680253 2 Capsule(s) PO QD 03/19/201105/2011 Inactive 16.2 mg-0.1037 mg-0.0194 mg Tab RxNorm: 0892896 2 Tablet(s) PO TID PRN for gas and cramping 03/16/2011 07/13/2011 Inactive Soma 350 mg Tab RxNorm: 741520 2 Tablet(s) PO TID 03/16/2011 03/29/20 11 Inactive Chantix Starting Month Aníbal 0.5 mg (11)-1 mg (3x14) Tab s in a Dose Pack RxNorm: 027143 Tablet(s) PO as directed 03/02/2011 No Stop Date Active diazepam 10 mg Tab RxNorm: 974807 1 Tablet(s) PO BID 02/10/201101/19 Inactive Zofran 4 mg tablet RxNorm: 441007 1 Tablet(s) PO Q4H prn nausea 02/16/2011 Inactive Diflucan 100 mg Tab RxNorm: 357623 1 Tablet(s) PO QD 01/18/201101/24 Inactive Premarin 0.625 mg/g Vaginal Cream RxNorm: 722736 VAG In sert 1gm vaginally at bedtime 3 times weekly 01/18/2011 02/12/2019 Inactive loratadine 10 mg Tab RxNorm: 6439121 1 Tablet(s) PO QD 12/17/201003/2012 Inactive Spiriva with HandiHaler 18 mcg & inhalation Caps RxNorm: 580 261 1 Capsule(s) INH QD 12/17/2010 04/12/2011 Inactive Diflucan 100 mg Tab RxNorm: 482184 1 Tablet(s) PO QD 12/17/201012/23 Inactive diazepam 10 mg Tab RxNorm: 527101 1 Tablet(s) PO BID and PRN 201002/12/2019 Inactive One Touch Ultra Test Strips RxNorm: InVt BID Zainab t blood sugar at least twice daily. 11/11/2010 06/11/2011 Inactive fluoxetine 40 mg Cap RxNorm: 105400 1 Capsule(s) PO QAM 11/11/2010 Inactive diazepam 10 mg Tab RxNorm: 782624 1 Tablet(s) PO BID and PRN 200911/12/2010 Inactive Bactrim DS 800 mg-160 mg Tab RxNorm: 463191 1 Tablet(s) PO BID 09/2210/15/2010 Inactive fluoxetine 20 mg Cap RxNorm: 497193 1 Capsule(s) PO QD 10/02/201008/2011 Inactive Bactrim DS 800 mg-160 mg Tab RxNorm: 636863 1 Tablet(s) PO BID 01/201010/03/2010 Inactive Zofran 4 mg Tab RxNorm: 152988 1 Tablet(s) PO Q4H prn nausea 200910/16/2010 Inactive 16.2 mg-0.1037 mg-0.0194 mg Tab RxNorm: 4643165 2 Tablet(s) PO TID PRN for gas and cramping 09/17/2010 10/21/2010 Inactive Gabapentin 800 mg Tab RxNorm: 791860 1 Tablet(s) PO QD 09/16/2010 Inactive ProAir HFA 90 mcg/Actuation Aerosol Inhaler RxNorm: 772034 2 Puff(s) INH Q4H prn shortness of breath 09/15/2010 12/13/2010 Inactive gabapentin 800 mg Tab RxNorm: 925226 1 Tablet(s) PO QD 09/15/2010 Inactive Prevacid 30 mg Cap RxNorm: 404029 1 Capsule(s) PO QD 09/15/201004/12 Inactive loratadine 10 mg Tab RxNorm: 3770528 1 Tablet(s) PO QD 09/15/2010 Inactive Premarin 0.9 mg Tab RxNorm: 657854 1 Tablet(s) PO QD 09/15/201004/12 Inactive Synthroid 112 mcg Tab RxNorm: 372252 1 Tablet(s) PO QD 09/15/2010 Inactive metformin ER 500 mg 24 hr Tab RxNorm: 858768 1 Tablet(s) PO QD 08/2304/12/2011 Inactive Symbicort 160 mcg-4.5 mcg/Actuation Inhalation HFA Aer osol Inhaler RxNorm: 7888521 2 Puff(s) INH BID 09/15/2010 04/12/2011 Inactive diazepam 10 mg Tab RxNorm: 040758 1 Tablet(s) PO BID and PRN 200910/13/2010 Inactive Phentermine 37.5 mg Cap RxNorm: 517052 1 Capsule(s) PO QD 09/02/2010 11/02/2011 Inactive ProAir HFA 90 mcg/Actuation Aerosol Inhaler RxNorm: 814324 2 Puff(s) INH Q4H prn shortness of breath 08/07/2010 No Stop Date Active Premarin 0.9 mg Tab RxNorm: 815910 1 Tablet(s) PO QD 08/07/201009/14 Inactive Loratadine 10 mg Tab RxNorm: 4227630 1 Tablet(s) PO QD 08/07/2010 Inactive Lactulose 10 gram/15 mL Oral Soln RxNorm: 108194 1 Unit Dose PO QD 08/07/2010 02/12/2019 Inactive Zofran 4 mg Tab RxNorm: 490021 1 Tablet(s) PO Q4H prn nausea 2009 No Stop Date Active Gabapentin 800 mg Tab RxNorm: 291523 1 Tablet(s) PO QD 08/07/2010 Inactive Synthroid 112 mcg Tab RxNorm: 662501 1 Tablet(s) PO QD 08/07/2010 Inactive Metformin ER 500 mg 24 hr Tab RxNorm: 716894 1 Tablet(s) PO QD 07/2309/14/2010 Inactive Vitamin D 1,000 unit Tab RxNorm: 440620 1 Tablet(s) PO TID 08/07/2002/12/2019 Inactive Symbicort 160 mcg-4.5 mcg/Actuation Inhalation HFA Aer osol Inhaler RxNorm: 8676536 2 Puff(s) INH BID 08/07/2010 09/14/2010 Inactive Prevacid 30 mg Cap RxNorm: 308835 1 Capsule(s) PO QD 08/07/201009/14 Inactive Metformin ER 500 mg 24 hr Tab RxNorm: 172910 1 Tablet(s) PO QD 06/2308/06/2010 Inactive Vitamin D 1,000 unit Tab RxNorm: 613283 1 Tablet(s) PO TID 07/14/2008/06/2010 Inactive Synthroid 112 mcg Tab RxNorm: 607120 1 Tablet(s) PO QD 07/14/2010 Inactive Lactulose 10 gram/15 mL Oral Soln RxNorm: 105278 1 Unit Dose PO QD 07/14/2010 08/06/2010 Inactive Levaquin 500 mg Tab RxNorm: 436906 1 Tablet(s) PO QD 07/14/201007/27 Inactive Premarin 0.9 mg Tab RxNorm: 951771 1 Tablet(s) PO QD 07/14/201008/06 Inactive ProAir HFA 90 mcg/Actuation Aerosol Inhaler RxNorm: 328148 2 Puff(s) INH Q4H prn shortness of breath 07/14/2010 No Stop Date Active Prevacid 30 mg Cap RxNorm: 893463 1 Capsule(s) PO QD 07/14/201008/06 Inactive Zofran 4 mg Tab RxNorm: 091358 1 Tablet(s) PO Q4H prn nausea 2009 No Stop Date Active Symbicort 160 mcg-4.5 mcg/Actuation Inhalation HFA Aer osol Inhaler RxNorm: 2895344 2 Puff(s) INH BID 07/14/2010 08/06/2010 Inactive Loratadine 10 mg Tab RxNorm: 6664939 1 Tablet(s) PO QD 07/14/2010 Inactive Gabapentin 800 mg Tab RxNorm: 708058 1 Tablet(s) PO QD 07/14/2010 Inactive Metformin ER 500 mg 24 hr Tab RxNorm: 453066 1 Tablet(s) PO 010 07/13/2010 Inactive Diazepam 10 mg Tab RxNorm: 681126 1 Tablet(s) PO BID and PRN 200909/06/2010 Inactive Premarin 0.9 mg Tab RxNorm: 314202 1 Tablet(s) PO QD 06/09/201007/13 Inactive Zofran 4 mg Tab RxNorm: 986075 1 Tablet(s) PO Q4H prn nausea 2009 No Stop Date Active ProAir HFA 90 mcg/Actuation Aerosol Inhaler RxNorm: 133403 2 Puff(s) INH Q4H prn shortness of breath 06/09/2010 No Stop Date Active Gabapentin 800 mg Tab RxNorm: 381564 1 Tablet(s) PO QD 06/09/2010 Inactive Loratadine 10 mg Tab RxNorm: 0045875 1 Tablet(s) PO QD 06/09/2010 Inactive Lactulose 10 gram/15 mL Oral Soln RxNorm: 956626 1 Unit Dose PO QD 06/09/2010 07/13/2010 Inactive Prevacid 30 mg Cap RxNorm: 064658 1 Capsule(s) PO QD 06/09/201007/13 Inactive Synthroid 112 mcg Tab RxNorm: 726642 1 Tablet(s) PO QD 06/09/2010 Inactive Symbicort 160 mcg-4.5 mcg/Actuation Inhalation HFA Aer osol Inhaler RxNorm: 8725525 2 Puff(s) INH BID 06/09/2010 07/13/2010 Inactive Omnicef 300 mg Cap RxNorm: 147261 2 Capsule(s) PO QD 05/07/201005/20 Inactive Metformin 500 mg Tab RxNorm: 491973 1 Tablet(s) PO QD 05/06/201005/22 Inactive ProAir HFA 90 mcg/Actuation Aerosol Inhaler RxNorm: 397602 2 Puff(s) INH Q4H prn shortness of breath 05/06/2010 No Stop Date Active lactulose 10 gram/15 mL Oral Soln RxNorm: 566754 1 Unit Dose PO QD 05/06/2010 06/10/2011 Inactive Loratadine 10 mg Tab RxNorm: 6765266 1 Tablet(s) PO QD 05/06/2010 Inactive Synthroid 112 mcg Tab RxNorm: 668892 1 Tablet(s) PO QD 05/06/2010 Inactive Symbicort 160 mcg-4.5 mcg/Actuation Inhalation HFA Aer osol Inhaler RxNorm: 9458338 2 Puff(s) INH BID 05/06/2010 06/08/2010 Inactive Gabapentin 800 mg Tab RxNorm: 304939 1 Tablet(s) PO QD 05/06/2010 Inactive 16.2 mg-0.1037 mg-0.0194 mg Tab RxNorm: 3844981 2 Tablet(s) PO TID PRN for gas and cramping 05/06/2010 05/12/2010 Inactive Zofran 4 mg Tab RxNorm: 286543 1 Tablet(s) PO Q4H prn nausea 200904/13/2010 Inactive MS Contin 60 mg Tab RxNorm: 223124 3 Tablet(s) PO BID 04/09/201004/22 Inactive Soma 350 mg Tab RxNorm: 449288 2 Tablet(s) PO TID 04/09/2010 05/08/20 10 Inactive Symbicort 160 mcg-4.5 mcg/Actuation Inhalation HFA Aer osol Inhaler RxNorm: 9090424 2 Puff(s) INH BID 04/08/2010 05/05/2010 Inactive Doxycycline 100 mg Cap RxNorm: 8893093 1 Capsule(s) PO BID 04/08/20 10 04/17/2010 Inactive Triamterene-Hydrochlorothiazide 37.5 mg-25 mg Cap RxNorm: 19 8316 1 Capsule(s) PO QAM 04/08/2010 09/04/2010 Inactive fluoxetine 40 mg Cap RxNorm: 646181 1 Capsule(s) PO QAM 04/08/2010 Inactive Morphine SR 120 mg multiphase 24 hr Cap RxNorm: 582969 1 Capsul e(s) PO 03/11/2010 04/07/2010 Inactive Endocet 10 mg-325 mg Tab RxNorm: 0479716 1-2 Tablet(s) PO Q4H [place] N PAIN 03/11/2010 04/09/2010 Inactive Savella 100 mg Tab RxNorm: 137239 1 Tablet(s) PO BID 03/10/201004/09 Inactive Soma 350 mg Tab RxNorm: 722092 1 Tablet(s) PO TID prn spasm 010 04/09/2010 Inactive Savella 100 mg Tab RxNorm: 232113 1 Tablet(s) PO BID 02/03/201004/09 Inactive Aspirin 81 mg Tab RxNorm: 348878 1 Tablet(s) PO QD No Start Date Active Zyrtec 10 mg Tab RxNorm: 3596034 1 Tablet(s) PO QD No Start Date Active One Touch Ultra Test Strips RxNorm: Misc test at least t wice daily. No Start Date Active coenzyme Q10 200 mg capsule RxNorm: 236637 1 Capsule(s) PO QD No Star t Date Active One Touch Ultra Test Strips RxNorm: InVt BID Zainab t blood sugar at least twice daily. No Start Date 11/10/2010 Inactive Gabapentin 800 mg Tab RxNorm: 883233 1 Tablet(s) PO QD No Start Date 05/05/2010 Inactive Abilify 5 mg tablet RxNorm: 650806 1 Tablet(s) PO QD No Start Date Inactive Chantix 1 mg Tab RxNorm: 094635 1 Tablet(s) PO BID No Start Date 10/22 Inactive Ozempic 0.25 mg or 0.5 mg (2 mg/1.5 mL) subcutaneous p en injector RxNorm: 0539376 .25 Milligram(s) SQ QW No Start Date 07/04/2019 Inactive lancets 28 gauge RxNorm: Miscellaneous As needed for blo od glucose sticks No Start Date 08/23/2013 Inactive potassium chloride ER 20 mEq tablet,extended release RxNorm: 040256 2 Tablet(s) PO QD No Start Date 09/26/2018 Inactive Ventolin HFA 90 mcg/actuation Aerosol Inhaler RxNorm: 815939 2 Puff(s) INH Q4H prn No Start Date 01/17/2012 Inactive potassium chloride ER 20 mEq tablet,extended release RxNorm: 109909 2 Tablet(s) PO QD No Start Date 10/19/2018 Inactive Januvia 100 mg tablet RxNorm: 747331 1 Tablet(s) PO QD No Start Date 09/10/2015 Inactive Medrol (Aníbal) 4 mg Tabs in a Dose Pack RxNorm: 195990 Tablet(s) PO N o Start Date 08/09/2011 Inactive as directed Zithromax Z-Aníbal 250 mg Tab RxNorm: 431239 Tablet(s) PO No Start Date 01/25/2012 Inactive as directed vitamin B6-vitamin E-magnesium tablet RxNorm: 1 Tablet(s ) PO QHS with INH No Start Date 03/30/2018 Inactive prednisone 20 mg Tab RxNorm: 954784 1 Tablet(s) PO TID for 1wk then 1 po BID for 1wk No Start Date 01/25/2012 Inactive furosemide 40 mg tablet RxNorm: 647165 1 Tablet(s) PO QAM No Start Date 10/09/2018 Inactive Vitamin D3 1000 units Capsule RxNorm: 1 Capsule(s) PO TID No S tart Date 03/19/2015 Inactive Zofran 4 mg Tab RxNorm: 771545 1 Tablet(s) PO Q4H prn nausea No Sta rt Date 04/13/2010 Inactive Premarin 0.625 mg/g Vaginal Cream RxNorm: 440588 1 Gram (s) VAG QHS 3 times a week No Start Date 09/22/2017 Inactive oxycodone 10 mg tablet RxNorm: 9790870 1-2 Tablet(s) PO QID as n eeded for pain No Start Date 11/04/2015 Inactive Nicoderm CQ 21 mg/24 hr daily Patch RxNorm: 760817 1 Applicatio n TD QD No Start Date 08/05/2015 Inactive Topamax 50 mg tablet RxNorm: 244049 1/2 Tablet(s) PO QH S for 1wk then 1 po q HS for 1wk then 2 po q HS No Start Date 06/27/2012 Inactive Chantix Starting Month Aníbal 0.5 mg (11)-1 mg (3x14) Tab s in a Dose Pack RxNorm: 684166 Tablet(s) PO as directed No Start Date 03/01/2011 Inactive Trulicity 0.75 mg/0.5 mL subcutaneous pen injector RxNorm: 1 831569 Milliliter(s) SQ No Start Date 07/04/2019 Inactive Medrol (Aníbal) 4 mg Tabs in a Dose Pack RxNorm: 401652 Tablet(s) PO N o Start Date 01/25/2012 Inactive as directed Duragesic 100 mcg/hr Transderm Patch RxNorm: 879689 2 A pplication TD Q48H for pain No Start Date 09/05/2013 Inactive Premarin 0.9 mg Tab RxNorm: 489842 1 Tablet(s) PO QD No Start Date Inactive Zithromax Z-Aníbal 250 mg Tab RxNorm: 820862 Tablet(s) PO as direc chinmay No Start Date 01/25/2012 Inactive ondansetron 8 mg disintegrating tablet RxNorm: 085139 1 Tablet(s) PO Q6H as needed No Start Date 10/10/2018 Inactive oxycodone 15 mg tablet RxNorm: 1628216 1 Tablet(s) PO QID as nee ded for pain No Start Date 03/05/2019 Inactive ProAir HFA 90 mcg/Actuation Aerosol Inhaler RxNorm: 074477 2 Puff(s) INH Q4H prn for wheezing or shortness of breath No Start Date 12/21/2011 Inactive pravastatin 40 mg tablet RxNorm: 157373 1/2 Tablet(s) PO QOD No Sta rt Date 04/09/2015 Inactive ipratropium-albuterol 0.5 mg-3 mg(2.5 mg base)/3 mL ne bulization soln RxNorm: 6850349 1 Unit Dose INH Q4H as needed No Start Date 09/09/2016 Inactive furosemide 40 mg tablet RxNorm: 306714 1 Tablet(s) PO QAM as ne eded No Start Date 09/24/2019 Inactive Vitamin D2 oral RxNorm: 4018 oral No Start Date 03/18/2015 Inacti ve pravastatin 40 mg tablet RxNorm: 504507 1/2 Tablet(s) PO QD No Star t Date 04/09/2015 Inactive ondansetron HCl 4 mg tablet RxNorm: 740157 1 Tablet(s) PO Q4H as needed for nausea and vomiting No Start Date 04/07/2016 Inactive furosemide 40 mg tablet RxNorm: 754754 2 Tablet(s) PO QAM No Start Date 09/26/2018 Inactive gabapentin 800 mg tablet RxNorm: 375203 1/2 Tablet(s) PO BID No Sta rt Date 06/21/2017 Inactive gabapentin 800 mg tablet RxNorm: 710532 1/2 Tablet(s) PO BID No Sta rt Date 07/05/2017 Inactive ProAir HFA 90 mcg/Actuation Aerosol Inhaler RxNorm: 980614 2 Puff(s) INH Q4H prn shortness of breath No Start Date 05/05/2010 Inactive scopolamine 1 mg over 3 days transdermal patch RxNorm: 43504 2 1 Application TD behind ear. Take off after three days No Start Date 10/10/2018 Inactive Metformin 500 mg Tab RxNorm: 832021 1 Tablet(s) PO QD No Start Date 0 05/05/2010 Inactive MS Contin 200 mg Tab RxNorm: 963251 1 Tablet(s) PO BID No Start Date 08/20/2011 Inactive Belladonna-Phenobarbital 48 mg tablet,extended release RxNor m: 2 Tablet(s) PO TID No Start Date 06/04/2016 Inactive Synthroid 112 mcg Tab RxNorm: 331617 1 Tablet(s) PO QD No Start Date 05/05/2010 Inactive Zegerid 40 mg-1.1 gram Cap RxNorm: 645033 1 Capsule(s) PO QD No Sta rt Date 01/25/2012 Inactive Premarin 0.625 mg/g Vaginal Cream RxNorm: 909706 VAG In sert 1gm vaginally at bedtime 3 times weekly No Start Date 01/17/2011 Inactive potassium chloride ER 20 mEq tablet,extended release RxNorm: 267709 1 Tablet(s) PO QD No Start Date 04/24/2019 Inactive methocarbamol 750 mg tablet RxNorm: 849019 2 Tablet(s) PO TID as needed for muscle spasm No Start Date 07/08/2014 Inactive Biaxin XL Aníbal 500 mg 24 hr Tab RxNorm: 155582 Tablet(s) PO as d irected No Start Date 04/24/2013 Inactive Vitamin D3 1,000 unit tablet RxNorm: 447266 3 Tablet(s) PO QD No St art Date 06/01/2017 Inactive Morphine SR 120 mg multiphase 24 hr Cap RxNorm: 110290 1 Capsul e(s) PO BID No Start Date 04/09/2010 Inactive Silvadene 1 % topical cream RxNorm: 915548 1 Application TOP BI D to burn area No Start Date 01/31/2017 Inactive Prednisone 20 mg Tab RxNorm: 370811 1 Tablet(s) PO TID for 3days then BID for 4days No Start Date 01/25/2012 Inactive gabapentin 600 mg tablet RxNorm: 034937 1 Tablet(s) PO BID No Start Date 01/21/2015 Inactive topiramate 50 mg tablet RxNorm: 781133 1 Tablet(s) PO QHS No Start Date 03/30/2018 Inactive Januvia 100 mg tablet RxNorm: 796779 1/2 Tablet(s) PO QD No Start D ate 12/25/2015 Inactive Diazepam 10 mg Tab RxNorm: 501675 1 Tablet(s) PO BID and PRN No Sta rt Date 06/08/2010 Inactive Medication Administered No Medication Administered data Immunizations Vaccine Codes Date Status Influenza CVX: 141 09/28/2012 Pneumovax Unknown 09/28/2012 Influenza (Adult) CVX: 141 09/02/2010 Results No Results data Procedures Procedure Codes Date THER/PROPH/DIAG INJ SC/IM CPT-4: 60302 07/10/2019 METHYLPREDNISOLONE INJECTION CPT-4: J2930 07/10/2019 URINALYSIS NONAUTO W/O SCOPE CPT-4: 86223 09/06/2018 URINE CULTURE/ COLONY COUNT CPT-4: 47670 09/06/2018 DRAIN/INJECT JOINT/BURSA CPT-4: 83038 04/29/2017 TRIAMCINOLONE ACET INJ NOS CPT-4: J3301 04/29/2017 DEXAMETHASONE SODIUM PHOS CPT-4: J1100 04/29/2017 INFLUENZA ASSAY W/OPTIC CPT-4: 37315 12/01/2016 RESPIRATORY CULTURE & STAIN CPT-4: 35018 07/09/2016 TB INTRADERMAL TEST CPT-4: 01051 04/21/2016 DRAIN/INJECT JOINT/BURSA CPT-4: 43251 11/07/2013 METHYLPREDNISOLONE 40 MG INJ CPT-4: J1030 11/07/2013 TRIAMCINOLONE ACET INJ NOS CPT-4: J3301 11/07/2013 DRAIN/INJECT JOINT/BURSA CPT-4: 20977 08/08/2013 METHYLPREDNISOLONE 40 MG INJ CPT-4: J1030 08/08/2013 TRIAMCINOLONE ACET INJ NOS CPT-4: J3301 08/08/2013 FLU VACCINE 3 YRS & > IM UP 64 CPT-4: 55110 2 PNEUMOCOCCAL VACC 23 ADITYA IM CPT-4: 19297 09/28/2012 IMMUNIZATION ADMIN CPT-4: 85660 09/28/2012 IMMUNIZATION ADMIN EACH ADD CPT-4: 32896 09/28/2012 FLU VACCINE 3 YRS & > IM UP 64 CPT-4: 39093 0 IMMUNIZATION ADMIN CPT-4: 74016 09/02/2010 METHYLPREDNISOLONE INJECTION CPT-4: J2930 05/07/2010 THER/PROPH/DIAG INJ SC/IM CPT-4: 45196 05/07/2010 Vital Signs Date Vital 11/29/2019 Blood [...] 1: 122/78 Code: 8480-6 BMI: 29.5 Code: 82094-5 Heart Rate 1: 76 bpm Height: 5'4" Respiratory Rate: 20 bpm SpO2: 96% Tempera ture: 37.0 (C) / 98.6 (F) Weight: 172 lbs 01/25/2019 Blood Pressure 1: 132/80 Code: 8480-6 BMI: 29.7 Code: 26541-9 Heart Rate 1: 84 bpm Height: 5'4" Respiratory Rate: 22 bpm SpO2: 98% Tempera ture: 36.9 (C) / 98.4 (F) Weight: 173 lbs 01/03/2019 Blood Pressure 1: 116/70 Code: 8480-6 BMI: 29.5 Code: 36807-4 Heart Rate 1: 92 bpm Height: 5'4" Respiratory Rate: 24 bpm SpO2: 98% Tempera ture: 37.2 (C) / 98.9 (F) Weight: 172 lbs 11/21/2018 Blood Pressure 1: 146/82 Code: 8480-6 BMI: 28.2 Code: 29830-4 Heart Rate 1: 88 bpm Height: 5'4" Respiratory Rate: 22 bpm SpO2: 97% Tempera ture: 36.9 (C) / 98.4 (F) Weight: 164 lbs 10/27/2018 Blood Pressure 1: 122/70 Code: 8480-6 BMI: 27.6 Code: 37396-5 Heart Rate 1: 88 bpm Height: 5'4" Respiratory Rate: 20 bpm SpO2: 96% Tempera ture: 36.8 (C) / 98.3 (F) Weight: 161 lbs 10/18/2018 Blood Pressure 1: 126/70 Code: 8480-6 BMI: 28.3 Code: 32794-0 Heart Rate 1: 76 bpm Height: 5'4" Respiratory Rate: 20 bpm SpO2: 95% Tempera ture: 37.0 (C) / 98.6 (F) Weight: 165 lbs 09/27/2018 Blood Pressure 1: 124/78 Code: 8480-6 BMI: 27.1 Code: 95018-6 Heart Rate 1: 88 bpm Height: 5'4" Respiratory Rate: 20 bpm SpO2: 98% Tempera ture: 36.4 (C) / 97.6 (F) Weight: 158 lbs 09/14/2018 Blood Pressure 1: 140/72 Code: 8480-6 BMI: 26.1 Code: 62779-7 Heart Rate 1: 100 bpm Height: 5'4" Respiratory Rate: 20 bpm SpO2: 97% Tempera ture: 36.9 (C) / 98.4 (F) Weight: 152 lbs 09/06/2018 Blood Pressure 1: 156/82 Code: 8480-6 BMI: 26.3 Code: 42336-4 Heart Rate 1: 100 bpm Height: 5'4" Respiratory Rate: 28 bpm SpO2: 95% Tempera ture: 37.2 (C) / 98.9 (F) Weight: 153 lbs 08/16/2018 Blood Pressure 1: 130/78 Code: 8480-6 Heart Rate 1: 87 bpm Respiratory Rate: 24 bpm SpO2: 94% Temperature: 36.9 (C) / 98.4 (F) We ight: 147 lbs 8 oz 07/07/2018 Blood Pressure 1: 116/78 Code: 8480-6 BMI: 22.7 Code: 77793-8 Heart Rate 1: 88 bpm Height: 5'4" Respiratory Rate: 22 bpm SpO2: 98% Tempera ture: 36.5 (C) / 97.7 (F) Weight: 132 lbs 05/31/2018 Blood Pressure 1: 128/78 Code: 8480-6 BMI: 22.3 Code: 34884-7 Heart Rate 1: 92 bpm Height: 5'4" Respiratory Rate: 26 bpm SpO2: 94% Tempera ture: 36.7 (C) / 98.1 (F) Weight: 130 lbs 03/31/2018 Blood Pressure 1: 136/78 Code: 8480-6 BMI: 21.5 Code: 82880-3 Heart Rate 1: 76 bpm Height: 5'4" Respiratory Rate: 24 bpm SpO2: 95% Tempera ture: 36.8 (C) / 98.3 (F) Weight: 125 lbs 01/26/2018 Blood Pressure 1: 142/64 Code: 8480-6 BMI: 20.6 Code: 18742-0 Heart Rate 1: 90 bpm Height: 5'4" Respiratory Rate: 24 bpm SpO2: 92% Tempera ture: 36.3 (C) / 97.3 (F) Weight: 120 lbs 10/26/2017 Blood Pressure 1: 124/70 Code: 8480-6 BMI: 20.3 Code: 25688-6 Heart Rate 1: 76 bpm Height: 5'4" Respiratory Rate: 22 bpm SpO2: 94% Tempera ture: 36.7 (C) / 98.1 (F) Weight: 118 lbs 09/23/2017 Blood Pressure 1: 106/70 Code: 8480-6 BMI: 19.2 Code: 54468-7 Heart Rate 1: 76 bpm Height: 5'4" Respiratory Rate: 20 bpm SpO2: 94% Tempera ture: 36.8 (C) / 98.3 (F) Weight: 112 lbs 08/12/2017 Blood Pressure 1: 116/68 Code: 8480-6 BMI: 20.1 Code: 59817-6 Heart Rate 1: 80 bpm Height: 5'4" Respiratory Rate: 22 bpm SpO2: 95% Tempera ture: 36.8 (C) / 98.2 (F) Weight: 117 lbs 07/06/2017 Blood Pressure 1: 136/78 Code: 8480-6 BMI: 20.6 Code: 42158-9 Heart Rate 1: 76 bpm Height: 5'4" Respiratory Rate: 24 bpm SpO2: 96% Tempera ture: 36.8 (C) / 98.2 (F) Weight: 120 lbs 06/02/2017 Blood Pressure 1: 112/70 Code: 8480-6 Heart Rate 1: 92 bpm Height: 5'4" Respiratory Rate: 24 bpm SpO2: 95% Temperature: 37.0 (C) / 98.6 (F) Weight: 04/29/2017 Blood Pressure 1: 94/52 Code: 8480-6 BMI: 19.6 C ode: 65227-0 Heart Rate 1: 84 bpm Height: 5'4" [...] 92/58 Code: 8480-6 BMI: 19.2 C ode: 16915-5 Heart Rate 1: 84 bpm Height: 5'4" Respiratory Rate: 26 bpm SpO2: 95% Tempera ture: 36.7 (C) / 98.0 (F) Weight: 112 lbs 12/01/2016 Blood Pressure 1: 114/70 Code: 8480-6 BMI: 19.2 Code: 74285-3 Heart Rate 1: 96 bpm Height: 5'4" Respiratory Rate: 28 bpm SpO2: 93% Tempera ture: 38.3 (C) / 101.0 (F) Weight: 112 lbs 10/27/2016 Blood Pressure 1: 126/66 Code: 8480-6 BMI: 19.6 Code: 57564-2 Heart Rate 1: 92 bpm Height: 5'4" Respiratory Rate: 28 bpm SpO2: 90% Tempera ture: 36.8 (C) / 98.3 (F) Weight: 114 lbs 09/09/2016 Blood Pressure 1: 126/74 Code: 8480-6 Heart Rate 1: 104 bpm Height: 5'4" Respiratory Rate: 32 bpm SpO2: 88% Temperature: 37 .2 (C) / 99.0 (F) 08/26/2016 Blood Pressure 1: 134/82 Code: 8480-6 BMI: 22.0 Code: 41485-9 Heart Rate 1: 84 bpm Height: 5'4" Respiratory Rate: 24 bpm SpO2: 94% Tempera ture: 36.8 (C) / 98.3 (F) Weight: 128 lbs 05/21/2016 Blood Pressure 1: 142/80 Code: 8480-6 BMI: 21.6 Code: 12603-6 Heart Rate 1: 104 bpm Height: 5'4" Respiratory Rate: 22 bpm SpO2: 93% Tempera ture: 36.0 (C) / 96.8 (F) Weight: 126 lbs 03/25/2016 Blood Pressure 1: 126/62 Code: 8480-6 Heart Rate 1: 88 bpm Respiratory Rate: 20 bpm SpO2: 92% Temperature: 36.8 (C) / 98.3 (F) We ight: 130 lbs 01/23/2016 Blood Pressure 1: 146/82 Code: 8480-6 BMI: 24.1 Code: 40522-2 Heart Rate 1: 92 bpm Height: 5'3" Respiratory Rate: 22 bpm Temperature: 37 .1 (C) / 98.8 (F) Weight: 136 lbs 12/26/2015 Blood Pressure 1: 142/78 Code: 8480-6 BMI: 24.6 Code: 03437-1 Heart Rate 1: 78 bpm Height: 5'3" Respiratory Rate: 20 bpm Temperature: 36 .7 (C) / 98.1 (F) Weight: 139 lbs 12/03/2015 Blood Pressure 1: 126/60 Code: 8480-6 BMI: 24.6 Code: 24412-4 Heart Rate 1: 100 bpm Height: 5'3" Respiratory Rate: 28 bpm Temperature: 37 .6 (C) / 99.6 (F) Weight: 139 lbs 09/10/2015 Blood Pressure 1: 124/64 Code: 8480-6 BMI: 23.7 Code: 70730-9 Heart Rate 1: 88 bpm Height: 5'3" Respiratory Rate: 24 bpm SpO2: 95% Tempera ture: 36.4 (C) / 97.6 (F) Weight: 134 lbs 08/06/2015 Blood Pressure 1: 114/76 Code: 8480-6 BMI: 23.2 Code: 11172-9 Heart Rate 1: 88 bpm Height: 5'3" Respiratory Rate: 22 bpm Temperature: 36 .6 (C) / 97.9 (F) Weight: 131 lbs 07/18/2015 Blood Pressure 1: 144/78 Code: 8480-6 BMI: 23.7 Code: 68160-0 Heart Rate 1: 84 bpm Height: 5'3" Respiratory Rate: 20 bpm Temperature: 37 .2 (C) / 99.0 (F) Weight: 134 lbs 04/10/2015 Blood Pressure 1: 110/64 Code: 8480-6 Heart Rate 1: 80 bpm Height: Respiratory Rate: 20 bpm Temperature: 37.1 (C) / 98.8 (F) Weight: 03/05/2015 Blood Pressure 1: 136/80 Code: 8480-6 BMI: 23.9 Code: 36942-8 Heart Rate 1: 76 bpm Height: 5'3" Respiratory Rate: 24 bpm Temperature: 37 .0 (C) / 98.6 (F) Weight: 135 lbs 01/30/2015 Blood Pressure 1: 142/80 Code: 8480-6 BMI: 23.0 Code: 94970-2 Heart Rate 1: 96 bpm Height: 5'3" Respiratory Rate: 22 bpm Temperature: 36 .2 (C) / 97.2 (F) Weight: 130 lbs 01/02/2015 Blood Pressure 1: 124/70 Code: 8480-6 BMI: 23.4 Code: 45761-0 Heart Rate 1: 84 bpm Height: 5'3" Respiratory Rate: 24 bpm SpO2: 95% Tempera ture: 36.9 (C) / 98.5 (F) Weight: 132 lbs 10/03/2014 Blood Pressure 1: 106/68 Code: 8480-6 BMI: 22.5 Code: 55647-7 Heart Rate 1: 88 bpm Height: 5'3" Respiratory Rate: 24 bpm Temperature: 37 .0 (C) / 98.6 (F) Weight: 127 lbs 08/27/2014 Blood Pressure 1: 124/68 Code: 8480-6 BMI: 21.1 Code: 47018-9 Heart Rate 1: 88 bpm Height: 5'3" [...] 1: 120/70 Code: 8480-6 BMI: 19.2 Code: 20251-4 Heart Rate 1: 70 bpm Height: 5'4" Respiratory Rate: 20 bpm Temperature: 36 .9 (C) / 98.4 (F) Weight: 112 lbs 06/28/2013 Blood Pressure 1: 102/68 Code: 8480-6 BMI: 19.6 Code: 08543-6 Heart Rate 1: 76 bpm Height: 5'4" Respiratory Rate: 20 bpm Temperature: 36 .8 (C) / 98.2 (F) Weight: 114 lbs 05/31/2013 Blood Pressure 1: 106/70 Code: 8480-6 BMI: 18.9 Code: 52872-0 Heart Rate 1: 100 bpm Height: 5'4" Respiratory Rate: 20 bpm Temperature: 36 .4 (C) / 97.6 (F) Weight: 110 lbs 05/03/2013 Blood Pressure 1: 126/70 Code: 8480-6 BMI: 19.1 Code: 14136-7 Heart Rate 1: 88 bpm Height: 5'4" Respiratory Rate: 20 bpm Temperature: 37 .1 (C) / 98.8 (F) Weight: 111 lbs 04/25/2013 Blood Pressure 1: 114/68 Code: 8480-6 BMI: 19.4 Code: 16450-2 Heart Rate 1: 92 bpm Height: 5'4" Respiratory Rate: 24 bpm SpO2: 96% Tempera ture: 37.7 (C) / 99.8 (F) Weight: 113 lbs 03/08/2013 Blood Pressure 1: 94/68 Code: 8480-6 BMI: 21.3 C ode: 85701-2 Heart Rate 1: 88 bpm Height: 5'4" Respiratory Rate: 24 bpm Temperature: 37 .0 (C) / 98.6 (F) Weight: 124 lbs 02/07/2013 Blood Pressure 1: 106/64 Code: 8480-6 BMI: 21.8 Code: 29594-8 Heart Rate 1: 84 bpm Height: 5'4" Respiratory Rate: 22 bpm Temperature: 36 .8 (C) / 98.2 (F) Weight: 127 lbs 01/10/2013 Blood Pressure 1: 122/68 Code: 8480-6 BMI: 21.6 Code: 58901-3 Heart Rate 1: 94 bpm Height: 5'4" SpO2: 94% Temperature: 36.7 (C) / 98.1 (F) Weight: 126 lbs 09/28/2012 Blood Pressure 1: 124/78 Code: 8480-6 BMI: 24.9 Code: 33458-9 Heart Rate 1: 92 bpm Height: 5'4" Respiratory Rate: 20 bpm Temperature: 36 .7 (C) / 98.1 (F) Weight: 145 lbs 06/28/2012 Blood Pressure 1: 134/80 Code: 8480-6 BMI: 24.9 Code: 32889-1 Heart Rate 1: 76 bpm Height: 5'4" Respiratory Rate: 20 bpm Temperature: 36 .8 (C) / 98.2 (F) Weight: 145 lbs 05/03/2012 Blood Pressure 1: 108/62 Code: 8480-6 BMI: 25.6 Code: 59029-8 Heart Rate 1: 88 bpm Height: 5'4" Temperature: 36.2 (C) / 97.2 (F) Weight: 149 lbs 03/01/2012 Blood Pressure 1: 124/66 Code: 8480-6 BMI: 25.1 Code: 83040-3 Heart Rate 1: 76 bpm Height: 5'4" Respiratory Rate: 20 bpm Temperature: 36 .6 (C) / 97.9 (F) Weight: 146 lbs 01/26/2012 Blood Pressure 1: 118/82 Code: 8480-6 BMI: 25.1 Code: 02630-7 Heart Rate 1: 74 bpm Height: 5'4" Temperature: 36.8 (C) / 98.2 (F) Weight: 146 lbs 11/03/2011 Blood Pressure 1: 126/80 Code: 8480-6 BMI: 27.3 Code: 07779-6 Heart Rate 1: 72 bpm Height: 5'4" [...] Visit Reason For Visit Effective Dates Notes Medication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 lesion Cont Symbicort and Spiriva 07/14/2010 Appointment: Vika Renteria WPtel: [address] [place], [place] [phone] [place] FOLLOW UP 07/14/2010 Patient Education: Patient Medication Summary Completed 07/14/2010 Appointment: Vika Renteria WPtel: [address] [place], [place] [phone] FOLLOW UP 05/27/2010 Appointment: Vika Renteria WPtel: [address] [place], [place] [phone] [place] FOLLOW UP 05/14/2010 Visit Plan: SVN with Albuterol 0.083% Q4 hrs and Q2hrs prn. Restart Spiriva Smoking Cessation 05/07/2010 Appointment: Vika Renteria WPtel: [address] [place], [place] [id number] FOLLOW UP 05/07/2010 Patient Education: Patient Medication Summary Completed 05/07/2010 Appointment: Vika Renteria WPtel: [address] [place], [place] [id number] ACUTE ILLNESS 04/08/2010 Patient Education: Patient Medication Summary Completed 04/08/2010 Referral: Kyle Billings WPtel: [phone] [id number] [place] Referral Completed Referral: Jaylan Matute WPtel: [address] [place] [address] [address] [id number] [place] Referral Initiated Referral: Kyle Billings WPtel: [address] [place] [address] [place] Referral Appointment Requested Instructions Comment . [...] prn breakthrough pain . Discussed that some [place] Bees produc ts are petroleum free If [...]
--- OUTSIDE RECORDS SUMMARY | 2020-04-24 22:43 | XMS REPORT | CCD ---
Author Author Yana Renteria D.O. Organization [facility] Address [address] [place] [address] Phone Care Team Providers Care Office Rn Name Role Phone Vika Renteria D.O., PP Unavailable CCM Unavailable Summary Purpose Interface Exchange Insurance Providers Payer name Policy type / Coverage type Covered republican ID Effective Begin Date Effective End Date [employer] [facility] Medicaid [id number] U nknown Family History Family History data not found Social History Social History Element Codes Description Effective Dates Marital status Unknown 06/28/[address]: [id number] Currently smokes tobacco 05/2013 Allergies, Adverse Reactions, [...] mcg-4.5 mcg/actuation HFA aerosol inhaler RxNo rm: 8483014 INHALE TWO PUFFS BY MOUTH TWICE A DAY 02/19/2020 No Stop Date Active Daliresp 500 mcg tablet RxNorm: 9426378 TAKE ONE TABLET BY MOUTH DAILY 02/19/2020 No Stop Date Active prednisone 20 mg tablet RxNorm: 556737 1 Tablet(s) Oral two yumi es a day 02/13/2020 02/20/2020 Active oxycodone 30 mg tablet RxNorm: 7073117 1 Tablet(s) Oral four times a day replaces MS Contin 02/13/2020 03/14/2020 Active levothyroxine 25 mcg tablet RxNorm: 294363 TAKE ONE TAB LET BY MOUTH EVERY MORNING 02/09/2020 No Stop Date Active MS Contin 200 mg tablet,extended release RxNorm: 080985 1 Tablet(s) Oral two times a day 02/01/2020 03/01/2020 Active cyclobenzaprine 10 mg tablet RxNorm: 243800 TAKE ONE TA BLET BY MOUTH THREE TIMES A DAY NEEDED 01/31/2020 No Stop Date Active Premarin 0.45 mg tablet RxNorm: 145862 TAKE ONE TABLET BY MOUTH DAILY 01/31/2020 No Stop Date Active metformin 500 mg tablet RxNorm: 512685 1 Tablet(s) Oral QD 01/31/20 20 04/29/2020 Active gabapentin 300 mg capsule RxNorm: 702267 TAKE ONE CAPSULE BY [facility] TWICE A DAY 01/16/2020 No Stop Date Active potassium chloride ER 20 mEq tablet,extended release RxNorm: 117019 TAKE ONE TABLET BY MOUTH DAILY 01/08/2020 07/05/2020 Active ProAir HFA 90 mcg/actuation aerosol inhaler RxNorm: 562702 INHALE ONE PUFF BY MOUTH EVERY 4 HOURS FOR WHEEZING OR FOR SHORTNESS OF BREATH 01/04/2020 No Stop Date Active metformin 500 mg tablet RxNorm: 431136 1 Tablet(s) Oral QD 01/04/20 20 01/30/2020 Inactive MS Contin 200 mg tablet,extended release RxNorm: 987552 1 Tablet(s) Oral two times a day 01/02/2020 01/31/2020 Inactive Pulmicort 1 mg/2 mL suspension for nebulization RxNorm: 6168 19 USE ONE VIAL VIA NEBULIZER BY MOUTH TWICE A DAY 12/21/2019 No Stop Date Active furosemide 40 mg tablet RxNorm: 228565 TAKE ONE TABLET BY MOUTH EVERY MORNING NEEDED 12/20/2019 No Stop Date Active levothyroxine 25 mcg tablet RxNorm: 066177 TAKE ONE TAB LET BY MOUTH EVERY MORNING 12/20/2019 02/08/2020 Inactive MS Contin 200 mg tablet,extended release RxNorm: 230759 1 Tablet(s) Oral two times a day 12/05/2019 01/01/2020 Inactive Medrol (Aníbal) 4 mg tablets in a dose pack RxNorm: 733776 6 Tablet(s) Oral QD --then as directed 11/30/2019 12/05/2019 Inactive MS Contin 200 mg tablet,extended release RxNorm: 736623 1 Tablet(s) Oral two times a day 11/29/2019 12/04/2019 Inactive cyclobenzaprine 10 mg tablet RxNorm: 415578 TAKE ONE TA BLET BY MOUTH THREE TIMES A DAY NEEDED 11/21/2019 01/30/2020 Inactive MS Contin 200 mg tablet,extended release RxNorm: 903613 1 Tablet(s) Oral two times a day replaces 100mg dose 11/03/2019 11/02/2019 Inactive MS Contin 200 mg tablet,extended release RxNorm: 546550 1 Tablet(s) Oral two times a day replaces 100mg dose 11/03/2019 11/29/2019 Inactive ferrous sulfate 325 mg (65 mg iron) tablet RxNorm: 619690 1 Tab let(s) Oral QD 10/30/2019 No Stop Date Active MS Contin 100 mg tablet,extended release RxNorm: 120281 1 Table t(s) Oral QD 10/30/2019 10/29/2019 Inactive MS Contin 100 mg tablet,extended release RxNorm: 211743 1 Table t(s) Oral QD 10/30/2019 11/02/2019 Inactive Relistor 150 mg tablet RxNorm: 4415174 TAKE THREE TABLETS BY BENOIT TH DAILY 10/25/2019 No Stop Date Active pantoprazole 40 mg tablet,delayed release RxNorm: 984540 1 Tabl et(s) Oral QD 10/25/2019 No Stop Date Active Minipress 2 mg capsule RxNorm: 082155 1 Capsule(s) Oral QAM and 3 at bedtime 10/25/2019 No Stop Date Active Lancets, Super Thin RxNorm: 1 Unit Dose Miscellaneous QD 9 11/27/2020 Active Cymbalta 60 mg capsule,delayed release RxNorm: 613433 1 Capsule (s) Oral QAM 10/25/2019 No Stop Date Active Cymbalta 30 mg capsule,delayed release RxNorm: 203883 1 Capsule (s) Oral QAM 10/25/2019 No Stop Date Active oxycodone 15 mg tablet RxNorm: 8011712 1 Tablet(s) Oral four times a day as needed for pain 10/25/2019 11/28/2019 Inactive metformin 500 mg tablet RxNorm: 823774 1 Tablet(s) Oral QD 10/25/20 19 01/03/2020 Inactive levothyroxine 25 mcg tablet RxNorm: 757585 1 Tablet(s) Oral QAM 02/201912/19/2019 Inactive levothyroxine 25 mcg tablet RxNorm: 326583 1 Tablet(s) Oral QAM 02/201910/24/2019 Inactive MS Contin 100 mg tablet,extended release RxNorm: 935900 1 Tablet(s) Oral two times a day replaces fentanyl 10/25/2019 10/25/2019 Inactive Premarin 0.45 mg tablet RxNorm: 473823 TAKE ONE TABLET BY MOUTH DAILY 10/24/2019 01/30/2020 Inactive Duragesic 100 mcg/hr transdermal patch RxNorm: 935316 2 Application TD Q48H for pain 10/18/2019 10/24/2019 Inactive gabapentin 300 mg capsule RxNorm: 814668 TAKE ONE CAPSULE BY MO UTH TWICE A DAY 10/16/2019 01/15/2020 Inactive cyclobenzaprine 10 mg tablet RxNorm: 055723 TAKE ONE TA BLET BY MOUTH THREE TIMES A DAY NEEDED 09/27/2019 11/20/2019 Inactive Relistor 150 mg tablet RxNorm: 7617065 TAKE THREE TABLETS BY BENOIT TH DAILY 09/25/2019 10/24/2019 Inactive ProAir HFA 90 mcg/actuation aerosol inhaler RxNorm: 851984 INHALE ONE PUFF BY MOUTH EVERY 4 HOURS FOR WHEEZING OR FOR SHORTNESS OF BREATH 09/25/2019 01/03/2020 Inactive furosemide 40 mg tablet RxNorm: 537443 1 Tablet(s) Oral QAM as needed 09/25/2019 09/25/2019 Inactive oxycodone 15 mg tablet RxNorm: 5194111 1 Tablet(s) PO QID as nee ded for pain 09/21/2019 10/24/2019 Inactive Duragesic 100 mcg/hr transdermal patch RxNorm: 592971 2 Application TD Q48H for pain 09/19/2019 10/17/2019 Inactive Daliresp 500 mcg tablet RxNorm: 0726557 1 Tablet(s) Oral QD 019 02/18/2020 Inactive Relistor 150 mg tablet RxNorm: 3045873 TAKE THREE TABLETS BY BENOIT TH DAILY 07/25/2019 07/30/2019 Inactive cyclobenzaprine 10 mg tablet RxNorm: 803685 TAKE ONE TA BLET BY MOUTH THREE TIMES A DAY NEEDED 07/25/2019 09/22/2019 Inactive potassium chloride ER 20 mEq tablet,extended release RxNorm: 911300 TAKE ONE TABLET BY MOUTH DAILY 07/25/2019 01/07/2020 Inactive fluoxetine 40 mg capsule RxNorm: 374113 TAKE ONE CAPSULE BY BENOIT TH EVERY MORNING 07/11/2019 10/24/2019 Inactive Medrol (Aníbal) 4 mg tablets in a dose pack RxNorm: 850612 6 Tablet(s) PO QD --then as directed 07/10/2019 07/15/2019 Inactive omeprazole 40 mg capsule,delayed release RxNorm: 267050 1 Capsule(s) PO QD for stomach TAKE ONE CAPSULE BY MOUTH DAILY 07/10/2019 10/24/2019 Inactive Augmentin 875 mg-125 mg tablet RxNorm: 484279 1 Tablet(s) PO BID 07/16/2019 Inactive Trulicity 0.75 mg/0.5 mL subcutaneous pen injector RxNorm: 1 103139 0.75 Milliliter(s) SQ weekly 07/05/2019 10/24/2019 Inactive Compazine 10 mg tablet RxNorm: 924639 TAKE ONE TABLET B Y MOUTH FOUR TIMES A DAY NEEDED FOR NAUSEA 06/20/2019 07/19/2019 Inactive ProAir HFA 90 mcg/actuation aerosol inhaler RxNorm: 550739 INHALE ONE PUFF BY MOUTH EVERY 4 HOURS FOR WHEEZING OR FOR SHORTNESS OF BREATH 06/20/2019 06/23/2019 Inactive Daliresp 500 mcg tablet RxNorm: 2294896 TAKE ONE TABLET BY MOUTH DAILY 06/12/2019 09/10/2019 Inactive oftlrydh-xdbmydrjc-ymwfhpusb 3.5 mg/mL-10,000 unit/mL- 1 % ear solution RxNorm: 396748 4 Drop(s) otic (ear) TID to left ear 06/05/2019 10/24/2019 Inac tive furosemide 40 mg tablet RxNorm: 330949 TAKE ONE TABLET BY MOUTH EVERY MORNING 05/26/2019 07/09/2019 Inactive Duragesic 100 mcg/hr transdermal patch RxNorm: 926975 2 Application TD Q48H for pain 05/16/2019 06/14/2019 Inactive oxycodone 15 mg tablet RxNorm: 5567683 1 Tablet(s) PO QID as nee ded for pain 05/10/2019 09/20/2019 Inactive doxycycline hyclate 100 mg capsule RxNorm: 0925140 1 Capsule(s) PO BID 05/03/2019 05/12/2019 Inactive prednisone 20 mg tablet RxNorm: 044796 1 Tablet(s) PO T ID for 3 days then 1 po BID for 3 days then one daily for 3 days 05/03/2019 07/11/2019 Inactiv e Ozempic 0.25 mg or 0.5 mg (2 mg/1.5 mL) subcutaneous p en injector RxNorm: 2609863 0.5 Milligram(s) SQ QW 05/03/2019 07/09/2019 Inactive fluconazole 100 mg tablet RxNorm: 121207 1 Tablet(s) PO QD 05/03/20 19 05/07/2019 Inactive Premarin 0.45 mg tablet RxNorm: 196525 TAKE ONE TABLET BY MOUTH DAILY 05/03/2019 10/23/2019 Inactive potassium chloride ER 20 mEq tablet,extended release RxNorm: 046784 1 Tablet(s) PO QD 04/27/2019 07/25/2019 Inactive potassium chloride ER 20 mEq tablet,extended release RxNorm: 646598 1 Tablet(s) PO QD 04/25/2019 04/26/2019 Inactive Compazine 10 mg tablet RxNorm: 038062 1 Tablet(s) PO QID as nee ded for nausea 04/25/2019 05/04/2019 Inactive ProAir HFA 90 mcg/actuation aerosol inhaler RxNorm: 819711 INHALE ONE PUFF BY MOUTH EVERY 4 HOURS FOR WHEEZING OR FOR SHORTNESS OF BREATH 04/12/2019 06/10/2019 Inactive Medrol (Aníbal) 4 mg tablets in a dose pack RxNorm: 584470 6 Tablet(s) PO QD --then as directed 04/11/2019 04/16/2019 Inactive Symbicort 160 mcg-4.5 mcg/actuation HFA aerosol inhaler RxNo rm: 0948332 2 Puff(s) INH BID 04/10/2019 10/06/2019 Inactive levothyroxine 50 mcg tablet RxNorm: 182335 1 Tablet(s) PO QD 201810/24/2019 Inactive gabapentin 300 mg capsule RxNorm: 745905 1 Capsule(s) PO BID 201810/02/2019 Inactive Symbicort 160 mcg-4.5 mcg/actuation HFA aerosol inhaler RxNo rm: 6103286 2 Puff(s) INH BID 04/06/2019 04/09/2019 Inactive oxycodone 15 mg tablet RxNorm: 5820412 1 Tablet(s) PO QID as nee ded for pain 04/05/2019 05/09/2019 Inactive levothyroxine 50 mcg tablet RxNorm: 752950 1 Tablet(s) PO QD 201804/09/2019 Inactive furosemide 40 mg tablet RxNorm: 451628 TAKE ONE TABLET BY MOUTH EVERY MORNING 03/21/2019 04/19/2019 Inactive levothyroxine 50 mcg tablet RxNorm: 429451 TAKE ONE TABLET BY M OUTH DAILY 03/21/2019 03/27/2019 Inactive Duragesic 100 mcg/hr transdermal patch RxNorm: 039307 2 Application TD Q48H for pain 03/13/2019 04/11/2019 Inactive oxycodone 15 mg tablet RxNorm: 4272406 1 Tablet(s) PO QID as nee ded for pain 03/06/2019 04/04/2019 Inactive Relistor 150 mg tablet RxNorm: 7072567 3 Tablet(s) PO QD 02/28/2019 0 05/28/2019 Inactive cyclobenzaprine 10 mg tablet RxNorm: 556631 1 Tablet(s) PO TID as needed 02/28/2019 05/28/2019 Inactive phentermine 37.5 mg tablet RxNorm: 774048 1 Tablet(s) PO QAM 201803/15/2019 Inactive Duragesic 100 mcg/hr transdermal patch RxNorm: 889650 2 Application TD Q48H for pain 02/09/2019 03/10/2019 Inactive Daliresp 500 mcg tablet RxNorm: 2293278 TAKE ONE TABLET BY MOUTH DAILY 01/31/2019 05/30/2019 Inactive Premarin 0.45 mg tablet RxNorm: 380359 1 Tablet(s) PO QD 01/31/2019 0 04/30/2019 Inactive fluoxetine 40 mg capsule RxNorm: 082408 Capsule(s) TAKE ONE CAPSULE BY MOUTH EVERY MORNING 01/31/2019 04/30/2019 Inactive levothyroxine 50 mcg tablet RxNorm: 373711 1 Tablet(s) PO QD 201804/10/2019 Inactive follow up in 3 weeks levothyroxine 50 mcg tablet RxNorm: 324690 1 Tablet(s) PO QD 201801/25/2019 Inactive follow up in 3 weeks potassium chloride ER 20 mEq tablet,extended release RxNorm: 446196 2 Tablet(s) PO BID 01/23/2019 01/08/2020 Inactive Synthroid 50 mcg tablet RxNorm: 703623 TAKE ONE TABLET BY MOUTH DAILY 01/16/2019 10/24/2019 Inactive potassium chloride ER 20 mEq tablet,extended release RxNorm: 925712 2 Tablet(s) PO BID 01/04/2019 01/22/2019 Inactive ProAir HFA 90 mcg/actuation aerosol inhaler RxNorm: 196419 INHALE ONE PUFF BY MOUTH EVERY 4 HOURS FOR WHEEZING OR SHORTNESS OF BREATH 01/04/201902/20 Inactive Request already responded to by other me ans (e.g. phone or fax) ProAir HFA 90 mcg/actuation aerosol inhaler RxNorm: 1246470 INHALE ONE PUFF BY MOUTH EVERY 4 HOURS FOR WHEEZING OR SHORTNESS OF BREATH 01/02/201912/23 Inactive gabapentin 300 mg capsule RxNorm: 569246 TAKE ONE CAPSULE BY MO UTH TWICE A DAY 12/30/2018 04/06/2019 Inactive furosemide 40 mg tablet RxNorm: 286567 1 Tablet(s) PO QAM 12/26/2018 02/23/2019 Inactive Compazine 10 mg tablet RxNorm: 587796 1 Tablet(s) PO QID as nee ded for nausea 12/07/2018 12/16/2018 Inactive metolazone 2.5 mg tablet RxNorm: 249847 TAKE ONE TABLET BY MOUT H EVERY MORNING 12/05/2018 01/03/2019 Inactive metformin ER 500 mg tablet,extended release 24 hr RxNorm: 86 0975 TAKE ONE TABLET BY MOUTH DAILY 12/05/2018 01/31/2020 Inactive Synthroid 50 mcg tablet RxNorm: 139677 1 Tablet(s) PO QD 11/25/2018 0 01/03/2019 Inactive DC any other synthroid strengths. Should be 50mcg only cyclobenzaprine 10 mg tablet RxNorm: 910337 TAKE ONE TA BLET BY MOUTH THREE TIMES A DAY NEEDED 11/09/2018 02/06/2019 Inactive metolazone 2.5 mg tablet RxNorm: 538129 1 Tablet(s) PO QAM repl aces 5mg dose 11/02/2018 12/01/2018 Inactive potassium chloride ER 20 mEq tablet,extended release RxNorm: 761722 2 Tablet(s) PO QD 2018 01/02/2019 Inactive Compazine 10 mg tablet RxNorm: 602038 1 Tablet(s) PO QID as nee ded for nausea 10/18/2018 12/07/2018 Inactive furosemide 40 mg tablet RxNorm: 868601 1 Tablet(s) PO QAM 10/12/2018 12/10/2018 Inactive ondansetron 8 mg disintegrating tablet RxNorm: 015747 1 Tablet(s) PO Q6H as needed 10/11/2018 10/17/2018 Inactive scopolamine 1 mg over 3 days transdermal patch RxNorm: 02171 2 1 Application TD behind ear. Take off after three days 10/11/2018 01/02/2019 Inactive furosemide 40 mg tablet RxNorm: 560866 1 Tablet(s) PO QAM 10/10/2018 12/26/2018 Inactive metolazone 5 mg tablet RxNorm: 101518 1 Tablet(s) PO QAM 10/06/2018 1 01/03/2018 Inactive metolazone 5 mg tablet RxNorm: 866377 1 Tablet(s) PO QAM 10/06/2018 1 12/05/2017 Inactive Xtampza ER 36 mg capsule sprinkle RxNorm: 8999631 1 Capsule(s) P O BID 10/05/2018 01/02/2019 Inactive Xtampza ER 36 mg capsule sprinkle RxNorm: 1898532 1 Capsule(s) P O BID 10/05/2018 02/12/2019 Inactive omeprazole 40 mg capsule,delayed release RxNorm: 656743 TAKE ONE CAPSULE BY MOUTH DAILY 10/03/2018 12/31/2018 Inactive Duragesic 100 mcg/hr transdermal patch RxNorm: 284445 2 Application TD Q48H for pain 09/30/2018 10/29/2018 Inactive Synthroid 50 mcg tablet RxNorm: 266021 1 Tablet(s) PO QD 09/29/2018 0 11/25/2018 Inactive DC any other synthroid strengths. Should be 50mcg only Synthroid 50 mcg tablet RxNorm: 812856 1 Tablet(s) PO QD 09/29/2018 1 11/28/2017 Inactive furosemide 40 mg tablet RxNorm: 370846 2 Tablet(s) PO Q AM for 1 week then every other day for 2 weeks 09/27/2018 10/12/2018 Inactive fluoxetine 40 mg capsule RxNorm: 009327 2 Capsule(s) PO QD 09/27/20 18 10/17/2018 Inactive potassium chloride ER 20 mEq tablet,extended release RxNorm: 399412 2 Tablet(s) PO QD for 1 week then every other day for 2 weeks 09/27/2018 2018 Inactive ProAir HFA 90 mcg/actuation aerosol inhaler RxNorm: 4960967 INHALE ONE PUFF BY MOUTH EVERY 4 HOURS FOR WHEEZING OR SHORTNESS OF BREATH 09/26/201811/23 Inactive Synthroid 75 mcg tablet RxNorm: 874910 1 Tablet(s) PO QD 09/09/2018 1 Inactive Synthroid 75 mcg tablet RxNorm: 721614 1 Tablet(s) PO QD 09/09/2018 1 11/28/2017 Inactive furosemide 40 mg tablet RxNorm: 085710 1 Tablet(s) PO QD 09/06/2018 1 Inactive potassium chloride ER 20 mEq tablet,extended release RxNorm: 291166 1 Tablet(s) PO QD 09/06/2018 09/19/2018 Inactive Duragesic 100 mcg/hr transdermal patch RxNorm: 801080 2 Application TD Q48H for pain 08/30/2018 09/28/2018 Inactive gabapentin 300 mg capsule RxNorm: 766134 TAKE ONE CAPSULE BY [facility] TWICE A DAY 08/23/2018 12/20/2018 Inactive Daliresp 500 mcg tablet RxNorm: 3261839 TAKE ONE TABLET BY MOUTH DAILY 08/23/2018 01/19/2019 Inactive Pulmicort 1 mg/2 mL suspension for nebulization RxNorm: 6168 19 USE ONE VIAL VIA NEBULIZER BY MOUTH TWICE A DAY 08/23/2018 07/11/2019 Inactive Synthroid 88 mcg tablet RxNorm: 485567 1 Tablet(s) PO QD 08/19/2018 Inactive Medrol (Aníbal) 4 mg tablets in a dose pack RxNorm: 269450 Tablet(s) PO take as directed 08/16/2018 09/05/2018 Inactive Relistor 150 mg tablet RxNorm: 7658285 3 Tablet(s) PO QD 08/16/2018 Inactive Zithromax Z-Aníbal 250 mg tablet RxNorm: 493375 Tablet(s) PO take as directed 08/16/2018 09/05/2018 Inactive cyclobenzaprine 10 mg tablet RxNorm: 376425 1 Tablet(s) PO TID as needed 08/16/2018 11/08/2018 Inactive Synthroid 88 mcg tablet RxNorm: 804584 1 Tablet(s) PO Q D NEEDS UPDATED LABS BEFORE FURTHER REFILLS 08/08/2018 08/19/2018 Inactive Premarin 0.45 mg tablet RxNorm: 302231 1 Tablet(s) PO QD 08/03/2018 0 01/31/2019 Inactive fluoxetine 20 mg capsule RxNorm: 237753 TAKE ONE CAPSULE BY BENOIT TH DAILY 08/03/2018 09/26/2018 Inactive Xtampza ER 36 mg capsule sprinkle RxNorm: 8430156 1 Capsule(s) P O BID 08/03/2018 09/01/2018 Inactive metformin ER 500 mg tablet,extended release 24 hr RxNorm: 86 0975 1 Tablet(s) PO QD 08/03/2018 10/31/2018 Inactive Symbicort 160 mcg-4.5 mcg/actuation HFA aerosol inhaler RxNo rm: 4063411 2 Puff(s) INH BID 08/03/2018 01/29/2019 Inactive Duragesic 100 mcg/hr transdermal patch RxNorm: 498505 2 Application TD Q48H for pain 07/29/2018 08/27/2018 Inactive ProAir HFA 90 mcg/actuation aerosol inhaler RxNorm: 038285 INHALE TWO PUFFS BY MOUTH EVERY 4 HOURS FOR WHEEZING OR SHORTNESS OF BREATH 07/27/201802/2018 Inactive Relistor 150 mg tablet RxNorm: 1295521 3 Tablet(s) PO QD 07/20/2018 0 08/15/2018 Inactive metformin ER 500 mg tablet,extended release 24 hr RxNorm: 86 0975 TAKE ONE TABLET BY MOUTH DAILY 07/08/2018 08/02/2018 Inactive fluoxetine 40 mg capsule RxNorm: 133477 TAKE ONE CAPSULE BY BENOIT TH EVERY MORNING 07/08/2018 10/05/2018 Inactive Xtampza ER 18 mg capsule sprinkle RxNorm: 9675503 1 Capsule(s) P O BID 07/08/2018 08/02/2018 Inactive Relistor 150 mg tablet RxNorm: 4757656 3 Tablet(s) PO QD 07/08/2018 0 07/12/2018 Inactive Synthroid 88 mcg tablet RxNorm: 485223 1 Tablet(s) PO Q D NEEDS UPDATED LABS BEFORE FURTHER REFILLS 06/23/2018 07/07/2018 Inactive fluoxetine 40 mg capsule RxNorm: 488222 TAKE ONE CAPSULE BY BENOIT TH EVERY MORNING 06/15/2018 09/26/2018 Inactive orphenadrine citrate ER 100 mg tablet,extended release RxNor m: 771841 TAKE ONE TABLET BY MOUTH TWICE A DAY FOR MUSCLE SPASM 06/15/2018 08/15/2018 Renu ctive Duragesic 100 mcg/hr transdermal patch RxNorm: 564435 2 Application TD Q48H for pain 05/30/2018 06/28/2018 Inactive ProAir HFA 90 mcg/actuation aerosol inhaler RxNorm: 081658 INHALE TWO PUFFS BY MOUTH EVERY 4 HOURS FOR WHEEZING OR SHORTNESS OF BREATH 05/19/201803/2018 Inactive Chantix Continuing Month Box 1 mg tablet RxNorm: 159057 TAKE ONE TABLET BY MOUTH TWICE A DAY 05/19/2018 08/15/2018 Inactive oxycodone 10 mg tablet RxNorm: 7905823 1-2 Tablet(s) PO QID as n eeded for pain 05/19/2018 07/07/2018 Inactive gabapentin 300 mg capsule RxNorm: 224097 TAKE ONE CAPSULE BY MO [facility] TWICE A DAY 05/18/2018 07/16/2018 Inactive ProAir HFA 90 mcg/actuation aerosol inhaler RxNorm: 616917 INHALE TWO PUFFS BY MOUTH EVERY 4 HOURS FOR WHEEZING OR SHORTNESS OF BREATH 05/04/201804/23 Inactive Augmentin 500 mg-125 mg tablet RxNorm: 027669 1 Tablet(s) PO BID 05/03/2018 Inactive oxycodone 10 mg tablet RxNorm: 3387965 1-2 Tablet(s) PO QID as n eeded for pain 04/21/2018 05/18/2018 Inactive Synthroid 88 mcg tablet RxNorm: 721958 1 Tablet(s) PO QD 04/15/2018 0 08/08/2018 Inactive Symbicort 160 mcg-4.5 mcg/actuation HFA aerosol inhaler RxNo rm: 0496077 2 Puff(s) INH BID 04/15/2018 04/10/2019 Inactive Premarin 0.45 mg tablet RxNorm: 709624 1 Tablet(s) PO QD 04/15/2018 0 08/03/2018 Inactive ProAir HFA 90 mcg/actuation aerosol inhaler RxNorm: 716783 2 Puff(s) INH Q4H prn for wheezing or shortness of breath 04/15/2018 05/03/2018 Inactive metformin ER 500 mg tablet,extended release 24 hr RxNorm: 86 0975 1 Tablet(s) PO QD 04/11/2018 07/07/2018 Inactive omeprazole 40 mg capsule,delayed release RxNorm: 992627 TAKE ONE CAPSULE BY MOUTH DAILY 04/10/2018 06/08/2018 Inactive Synthroid 88 mcg tablet RxNorm: 477260 1 Tablet(s) PO QD 04/04/2018 0 04/14/2018 Inactive Synthroid 88 mcg tablet RxNorm: 194163 1 Tablet(s) PO QD 04/04/2018 0 04/03/2018 Inactive orphenadrine citrate ER 100 mg tablet,extended release RxNor m: 073191 1 Tablet(s) PO BID for muscle spasm 04/04/2018 05/03/2018 Inactive metformin ER 500 mg tablet,extended release 24 hr RxNorm: 86 0975 1 Tablet(s) PO QD NEEDS UPDATED LABS 03/31/2018 04/11/2018 Inactive doxycycline hyclate 100 mg capsule RxNorm: 7084369 1 Capsule(s) PO BID 03/31/2018 04/09/2018 Inactive prednisone 20 mg tablet RxNorm: 970087 3 Tablet(s) PO T ID for 3 days then 1 po BID for 3 days then one daily for 3 days 03/31/2018 07/06/2018 Inactiv e Chantix Continuing Month Box 1 mg tablet RxNorm: 764356 TAKE ONE TABLET BY MOUTH TWICE A DAY 03/25/2018 03/30/2018 Inactive oxycodone 10 mg tablet RxNorm: 4477676 1-2 Tablet(s) PO QID as n eeded for pain 03/21/2018 04/20/2018 Inactive Daliresp 500 mcg tablet RxNorm: 6988957 1 Tablet(s) PO QD 03/15/2018 08/22/2018 Inactive metformin ER 500 mg tablet,extended release 24 hr RxNorm: 86 0975 1 Tablet(s) PO QD NEEDS UPDATED LABS 03/14/2018 03/31/2018 Inactive nystatin 100,000 unit/mL oral suspension RxNorm: 581915 5 Chio liter(s) PO QID 03/02/2018 03/15/2018 Inactive nystatin 100,000 unit/mL oral suspension RxNorm: 508305 5 Chio liter(s) PO QID 03/02/2018 03/01/2018 Inactive oxycodone 10 mg tablet RxNorm: 1365877 1-2 Tablet(s) PO QID as n eeded for pain 02/16/2018 03/20/2018 Inactive fluoxetine 20 mg capsule RxNorm: 784055 1 Capsule(s) PO QD 02/15/20 18 08/02/2018 Inactive metformin ER 500 mg tablet,extended release 24 hr RxNorm: 86 0975 1 Tablet(s) PO QD Needs updated labs 02/14/2018 03/14/2018 Inactive cefdinir 300 mg capsule RxNorm: 825735 1 Capsule(s) PO BID 01/27/20 18 02/04/2018 Inactive orphenadrine citrate ER 100 mg tablet,extended release RxNor m: 253902 1 Tablet(s) PO BID for muscle spasm 01/26/2018 04/04/2018 Inactive gabapentin 300 mg capsule RxNorm: 267884 1 Capsule(s) PO BID 201704/17/2018 Inactive oxycodone 10 mg tablet RxNorm: 9917120 1-2 Tablet(s) PO QID as n eeded for pain 01/17/2018 02/15/2018 Inactive Duragesic 100 mcg/hr transdermal patch RxNorm: 350101 2 Application TD Q48H for pain 01/17/2018 02/15/2018 Inactive gabapentin 300 mg capsule RxNorm: 661052 TAKE ONE CAPSULE BY MO UTH TWICE A DAY 12/20/2017 01/18/2018 Inactive fluoxetine 40 mg capsule RxNorm: 211267 TAKE ONE CAPSULE BY BENOIT TH EVERY MORNING 12/15/2017 03/14/2018 Inactive OneTouch Ultra Test strips RxNorm: TEST DAILY 11/04/2017 02/01/2018 Inactive gabapentin 300 mg capsule RxNorm: 436448 1 Capsule(s) P O TID replaces BID dosing 10/26/2017 02/22/2018 Inactive oxycodone 10 mg tablet RxNorm: 7154564 1-2 Tablet(s) PO QID as n eeded for pain 10/18/2017 01/16/2018 Inactive Duragesic 100 mcg/hr transdermal patch RxNorm: 030426 2 Application TD Q48H for pain 10/18/2017 11/16/2017 Inactive gabapentin 300 mg capsule RxNorm: 896243 1 Capsule(s) PO BID 201610/25/2017 Inactive Abilify 5 mg tablet RxNorm: 895323 1 Tablet(s) PO QAM 09/23/201702/2017 Inactive gabapentin 300 mg capsule RxNorm: 911859 1 Capsule(s) PO BID 201610/17/2017 Inactive oxycodone 10 mg tablet RxNorm: 6021600 1-2 Tablet(s) PO QID as n eeded for pain 09/15/2017 10/17/2017 Inactive Duragesic 100 mcg/hr transdermal patch RxNorm: 140945 2 Application TD Q48H for pain 09/15/2017 10/14/2017 Inactive Duragesic 100 mcg/hr transdermal patch RxNorm: 323246 2 Application TD Q48H for pain 09/15/2017 10/24/2019 Inactive oxycodone 10 mg tablet RxNorm: 9235978 1-2 Tablet(s) PO QID as n eeded for pain 09/15/2017 08/15/2018 Inactive Daliresp 500 mcg tablet RxNorm: 3888207 1 Tablet(s) PO QD 09/06/2017 03/15/2018 Inactive Ventolin HFA 90 mcg/actuation aerosol inhaler RxNorm: 779921 2 Puff(s) INH Q4H as needed 09/02/2017 05/19/2018 Inactive oxycodone 10 mg tablet RxNorm: 1652367 1-2 Tablet(s) PO QID as n eeded for pain 08/17/2017 09/14/2017 Inactive Duragesic 100 mcg/hr transdermal patch RxNorm: 291146 2 Application TD Q48H for pain 08/17/2017 09/14/2017 Inactive fluoxetine 40 mg capsule RxNorm: 530790 Capsule(s) TAKE ONE CAPSULE BY MOUTH EVERY MORNING 08/17/2017 12/14/2017 Inactive Pulmicort 1 mg/2 mL suspension for nebulization RxNorm: 6168 19 1 Unit Dose INH BID Dx: COPD (J44.9) 08/16/2017 08/22/2018 Inactive gabapentin 300 mg capsule RxNorm: 897224 1 Capsule(s) PO QHS 201610/18/2017 Inactive fluoxetine 20 mg capsule RxNorm: 197831 1 Capsule(s) PO QD 08/12/20 17 02/14/2018 Inactive Abilify 2 mg tablet RxNorm: 845329 1 Tablet(s) PO QD TA KE ONE TABLET BY MOUTH DAILY 08/12/2017 10/25/2017 Inactive metformin ER 500 mg tablet,extended release 24 hr RxNorm: 86 0975 1 Tablet(s) PO QD 08/10/2017 02/14/2018 Inactive Synthroid 112 mcg tablet RxNorm: 425335 1 Tablet(s) PO QD 08/10/2017 04/15/2018 Inactive oxycodone 10 mg tablet RxNorm: 0471977 1-2 Tablet(s) PO QID as n eeded for pain 07/19/2017 08/16/2017 Inactive Duragesic 100 mcg/hr transdermal patch RxNorm: 743254 2 Application TD Q48H for pain 07/19/2017 08/16/2017 Inactive Ventolin HFA 90 mcg/actuation aerosol inhaler RxNorm: 233071 2 Puff(s) INH Q4H as needed 07/12/2017 09/02/2017 Inactive Abilify 2 mg tablet RxNorm: 256924 1 Tablet(s) PO QD TA KE ONE TABLET BY MOUTH DAILY 07/06/2017 08/11/2017 Inactive gabapentin 800 mg tablet RxNorm: 648543 1 Tablet(s) PO TID 06/22/20 17 07/05/2017 Inactive Chantix Starting Month Box 0.5 mg (11)-1 mg (42) table ts in dose pack RxNorm: 306677 TAKE BY MOUTH INSTRUCTED - PER PACKAGE INSTRUCTIONS 06/0707/04/2017 Inactive Ventolin HFA 90 mcg/actuation aerosol inhaler RxNorm: 618163 2 Puff(s) INH Q4H as needed 05/26/2017 07/12/2017 Inactive Duragesic 100 mcg/hr transdermal patch RxNorm: 926652 2 Application TD Q48H for pain 05/19/2017 06/17/2017 Inactive oxycodone 10 mg tablet RxNorm: 8702851 1-2 Tablet(s) PO QID as n eeded for pain 05/19/2017 07/18/2017 Inactive Abilify 2 mg tablet RxNorm: 830812 TAKE ONE TABLET BY MOUTH DAILY 0 05/10/2017 07/05/2017 Inactive Synthroid 112 mcg tablet RxNorm: 788632 1 Tablet(s) PO QD 05/06/2017 08/10/2017 Inactive metformin ER 500 mg tablet,extended release 24 hr RxNorm: 86 0975 1 Tablet(s) PO QD 05/06/2017 08/10/2017 Inactive Topamax 100 mg tablet RxNorm: 854965 1 Tablet(s) PO QHS 05/06/2017 Inactive Premarin 0.45 mg tablet RxNorm: 260535 1 Tablet(s) PO QD 05/06/2017 0 04/15/2018 Inactive orphenadrine citrate ER 100 mg tablet,extended release RxNor m: 702650 1 Tablet(s) PO TID for muscle spasm--replaces methocarbamol 04/29/2017 Inactive oxycodone 10 mg tablet RxNorm: 9921701 1-2 Tablet(s) PO QID as n eeded for pain 04/21/2017 05/18/2017 Inactive Duragesic 100 mcg/hr transdermal patch RxNorm: 320000 2 Application TD Q48H for pain 04/21/2017 05/18/2017 Inactive fluoxetine 40 mg capsule RxNorm: 867571 Capsule(s) TAKE ONE CAPSULE BY MOUTH EVERY MORNING 04/20/2017 08/17/2017 Inactive Ventolin HFA 90 mcg/actuation aerosol inhaler RxNorm: 263768 2 Puff(s) INH Q4H as needed 04/05/2017 05/26/2017 Inactive Symbicort 160 mcg-4.5 mcg/actuation HFA aerosol inhaler RxNo rm: 6683012 2 Puff(s) INH BID 03/30/2017 04/15/2018 Inactive Spiriva with HandiHaler 18 mcg and inhalation capsules RxNor m: 103813 1 Capsule(s) INH QD USING HANDIHALER 03/30/2017 02/12/2019 Inactive Duragesic 100 mcg/hr transdermal patch RxNorm: 791522 2 Application TD Q48H for pain 03/18/2017 04/16/2017 Inactive oxycodone 10 mg tablet RxNorm: 2234887 1-2 Tablet(s) PO QID as n eeded for pain 03/18/2017 04/20/2017 Inactive metformin ER 500 mg tablet,extended release 24 hr RxNorm: 86 0975 Tablet(s) TAKE ONE TABLET BY MOUTH DAILY 03/01/2017 05/06/2017 Inactive Premarin 0.45 mg tablet RxNorm: 168637 Tablet(s) TAKE ONE TABLE T BY MOUTH DAILY 03/01/2017 05/06/2017 Inactive Synthroid 112 mcg tablet RxNorm: 774334 Tablet(s) TAKE ONE TABLET BY MOUTH DAILY 03/01/2017 05/06/2017 Inactive Daliresp 500 mcg tablet RxNorm: 8650680 1 Tablet(s) PO QD 03/01/2017 09/06/2017 Inactive 16.2 mg-0.1037 mg-0.0194 mg tablet RxNorm: 1049807 Tablet(s) PO PRN for gas and cramping 02/23/2017 04/28/2017 Inactive TAKE TWO TABLET S BY MOUTH THREE TIMES A DAY NEEDED FOR GAS AND CRAMPING gabapentin 800 mg tablet RxNorm: 524008 1 Tablet(s) PO TID repl aces 600mg 02/23/2017 04/28/2017 Inactive Duragesic 100 mcg/hr transdermal patch RxNorm: 758604 2 Application TD Q48H for pain 02/17/2017 03/17/2017 Inactive fluoxetine 20 mg capsule RxNorm: 656712 1 Capsule(s) PO QD 02/18/20 17 08/12/2017 Inactive oxycodone 20 mg tablet RxNorm: 0335578 1 Tablet(s) PO QID as nee ded for pain 02/17/2017 03/17/2017 Inactive Ventolin HFA 90 mcg/actuation aerosol inhaler RxNorm: 447752 INHALE TWO PUFFS BY MOUTH EVERY 4 HOURS NEEDED 02/15/2017 04/05/2017 Inactive Silvadene 1 % topical cream RxNorm: 139718 1 Application TOP BI D to burn area 02/01/2017 09/22/2017 Inactive Topamax 100 mg tablet RxNorm: 404400 TAKE ONE TABLET BY MOUTH EVERY NIGHT AT BEDTIME 01/29/2017 05/06/2017 Inactive Chantix Starting Month Box 0.5 mg (11)-1 mg (42) table ts in dose pack RxNorm: 471252 Tablet(s) PO as directed 01/29/2017 06/01/2017 Inactive Abilify 2 mg tablet RxNorm: 468746 TAKE ONE TABLET BY MOUTH DAILY 0 01/26/2017 04/25/2017 Inactive Chantix Starting Month Box 0.5 mg (11)-1 mg (42) table ts in dose pack RxNorm: 518250 Tablet(s) PO as directed 01/20/2017 01/28/2017 Inactive gabapentin 600 mg tablet RxNorm: 904559 1 Tablet(s) PO TID 01/21/20 17 02/22/2017 Inactive Chantix Continuing Month Box 1 mg tablet RxNorm: 706113 1 Table t(s) PO BID 12/31/2016 06/01/2017 Inactive Spiriva with HandiHaler 18 mcg and inhalation capsules RxNor m: 067214 INHALE THE ENTIRE CONTENTS OF 1 CAPSULE ONCE A DAY USING HANDIHALER 12/31/201607/2017 Inactive Synthroid 112 mcg tablet RxNorm: 061056 TAKE ONE TABLET BY MOUT H DAILY 12/30/2016 03/01/2017 Inactive metformin ER 500 mg tablet,extended release 24 hr RxNorm: 86 0975 TAKE ONE TABLET BY MOUTH DAILY 12/30/2016 03/01/2017 Inactive Premarin 0.45 mg tablet RxNorm: 890355 TAKE ONE TABLET BY MOUTH DAILY 12/30/2016 03/01/2017 Inactive omeprazole 40 mg capsule,delayed release RxNorm: 562957 TAKE ONE CAPSULE BY MOUTH DAILY 12/30/2016 01/25/2018 Inactive Ventolin HFA 90 mcg/actuation aerosol inhaler RxNorm: 841398 INHALE TWO PUFFS BY MOUTH EVERY 4 HOURS NEEDED 12/28/2016 02/13/2017 Inactive fluoxetine 40 mg capsule RxNorm: 964704 TAKE ONE CAPSULE BY BENOIT TH EVERY MORNING 12/15/2016 04/20/2017 Inactive Chantix Continuing Month Box 1 mg tablet RxNorm: 571706 TAKE ONE TABLET BY MOUTH TWICE A DAY 12/04/2016 12/31/2016 Inactive doxycycline hyclate 100 mg capsule RxNorm: 2214265 1 Capsule(s) PO BID 12/01/2016 12/07/2016 Inactive Levaquin 750 mg tablet RxNorm: 357196 1 Tablet(s) PO QD 12/01/2016 Inactive Abilify 2 mg tablet RxNorm: 463715 TAKE ONE TABLET BY MOUTH DAILY 0 11/25/2016 11/30/2016 Inactive Ventolin HFA 90 mcg/actuation aerosol inhaler RxNorm: 912310 INHALE TWO PUFFS BY MOUTH EVERY 4 HOURS NEEDED 11/02/2016 12/19/2016 Inactive Chantix Continuing Month Box 1 mg tablet RxNorm: 120994 Tablet(s) PO as directed 10/30/2016 12/03/2016 Inactive Symbicort 160 mcg-4.5 mcg/actuation HFA aerosol inhaler RxNo rm: 3944882 INHALE TWO PUFFS TWO TIMES A DAY 10/30/2016 03/30/2017 Inactive Abilify 2 mg tablet RxNorm: 438589 1 Tablet(s) PO QD 10/27/201611/24 Inactive amoxicillin 500 mg capsule RxNorm: 306883 1 Capsule(s) PO TID 10/1410/23/2016 Inactive amoxicillin 500 mg capsule RxNorm: 835112 1 Capsule(s) PO TID 10/1410/13/2016 Inactive Synthroid 112 mcg tablet RxNorm: 359727 TAKE ONE TABLET BY MOUT H DAILY 09/28/2016 12/29/2016 Inactive Topamax 100 mg tablet RxNorm: 926689 TAKE ONE TABLET BY MOUTH EVERY NIGHT AT BEDTIME 09/28/2016 01/28/2017 Inactive Premarin 0.45 mg tablet RxNorm: 201963 TAKE ONE TABLET BY MOUTH DAILY 09/28/2016 12/29/2016 Inactive metformin ER 500 mg tablet,extended release 24 hr RxNorm: 86 0975 TAKE ONE TABLET BY MOUTH DAILY 09/28/2016 12/29/2016 Inactive Ventolin HFA 90 mcg/actuation aerosol inhaler RxNorm: 837655 INHALE TWO PUFFS BY MOUTH EVERY 4 HOURS NEEDED 09/22/2016 10/23/2016 Inactive Pulmicort 1 mg/2 mL suspension for nebulization RxNorm: 6168 19 1 Unit Dose INH BID Dx: COPD (J44.9) 09/10/2016 08/16/2017 Inactive Pulmicort 1 mg/2 mL suspension for nebulization RxNorm: 6168 19 1 Unit Dose INH BID 09/10/2016 09/09/2016 Inactive Brovana 15 mcg/2 mL solution for nebulization RxNorm: 678444 1 Unit Dose INH BID Dx: COPD (J44.9) 09/10/2016 01/25/2018 Inactive Brovana 15 mcg/2 mL solution for nebulization RxNorm: 585402 1 Unit Dose INH BID 09/10/2016 09/09/2016 Inactive ipratropium-albuterol 0.5 mg-3 mg(2.5 mg base)/3 mL ne bulization soln RxNorm: 7333058 1 Unit Dose INH Q4H as needed Dx: COPD (J44.9) 09/10/2016 0 02/12/2019 Inactive orphenadrine citrate ER 100 mg tablet,extended release RxNor m: 197191 1 Tablet(s) PO BID for muscle spasm--replaces methocarbamol 09/09/2016 Inactive Chantix Continuing Month Box 1 mg tablet RxNorm: 880974 Tablet(s) PO as directed 09/09/2016 10/30/2016 Inactive orphenadrine citrate ER 100 mg tablet,extended release RxNor m: 772606 1 Tablet(s) PO BID for muscle spasm 09/09/2016 09/08/2016 Inactive Spiriva with HandiHaler 18 mcg and inhalation capsules RxNor m: 900041 INHALE THE ENTIRE CONTENTS OF 1 CAPSULE ONCE A DAY USING HANDIHALER 09/01/201605/2017 Inactive Daliresp 500 mcg tablet RxNorm: 2497154 1 Tablet(s) PO QD 08/27/2016 03/01/2017 Inactive prednisone 20 mg tablet RxNorm: 610797 3 Tablet(s) PO T ID for 3 days then 1 po BID for 3 days then one daily for 3 days 08/26/2016 04/28/2017 Inactiv e Wellbutrin XL 300 mg 24 hr tablet, extended release RxNorm: 232180 TAKE ONE TABLET BY MOUTH EVERY MORNING 07/29/2016 10/26/2016 Inactive gabapentin 600 mg tablet RxNorm: 970221 1 Tablet(s) PO BID 06/26/20 16 12/22/2016 Inactive fluoxetine 40 mg capsule RxNorm: 785217 TAKE ONE CAPSULE BY BENOIT TH EVERY MORNING 06/24/2016 11/20/2016 Inactive Duragesic 100 mcg/hr transdermal patch RxNorm: 004621 2 Application TD Q48H for pain 06/05/2016 07/04/2016 Inactive oxycodone 10 mg tablet RxNorm: 1684392 1-2 Tablet(s) PO QID as n eeded for pain 06/05/2016 03/17/2017 Inactive Belladonna-Phenobarbital 48 mg tablet,extended release RxNor m: 2 Tablet(s) PO TID 06/05/2016 01/19/2017 Inactive Premarin 0.45 mg tablet RxNorm: 554910 TAKE ONE TABLET BY MOUTH DAILY 05/27/2016 09/23/2016 Inactive Topamax 100 mg tablet RxNorm: 313802 TAKE ONE TABLET BY MOUTH EVERY NIGHT AT BEDTIME 05/27/2016 09/27/2016 Inactive Synthroid 112 mcg tablet RxNorm: 001742 TAKE ONE TABLET BY MOUT H DAILY 05/27/2016 09/23/2016 Inactive metformin ER 500 mg tablet,extended release 24 hr RxNorm: 86 0975 TAKE ONE TABLET BY MOUTH DAILY 05/27/2016 09/23/2016 Inactive Symbicort 160 mcg-4.5 mcg/actuation HFA aerosol inhaler RxNo rm: 1480347 INHALE TWO PUFFS TWO TIMES A DAY 05/27/2016 10/23/2016 Inactive Ventolin HFA 90 mcg/actuation aerosol inhaler RxNorm: 490066 INHALE TWO PUFFS BY MOUTH EVERY 4 HOURS NEEDED 05/21/2016 07/07/2016 Inactive omeprazole 40 mg capsule,delayed release RxNorm: 424098 1 Capsu le(s) PO QD 05/06/2016 08/03/2016 Inactive metformin ER 500 mg tablet,extended release 24 hr RxNorm: 86 0975 TAKE ONE TABLET BY MOUTH DAILY 04/23/2016 05/22/2016 Inactive methocarbamol 750 mg tablet RxNorm: 474418 2 Tablet(s) PO TID as needed for muscle spasm 04/23/2016 09/08/2016 Inactive Synthroid 112 mcg tablet RxNorm: 171911 TAKE ONE TABLET BY MOUT H DAILY 04/23/2016 05/22/2016 Inactive Spiriva with HandiHaler 18 mcg and inhalation capsules RxNor m: 191565 INHALE THE ENTIRE CONTENTS OF 1 CAPSULE ONCE A DAY USING HANDIHALER 04/09/201608/2016 Inactive Diflucan 100 mg tablet RxNorm: 789010 1 Tablet(s) PO QD 04/08/2016 Inactive doxycycline hyclate 100 mg capsule RxNorm: 0827508 1 Capsule(s) PO BID 04/08/2016 04/17/2016 Inactive doxycycline hyclate 100 mg capsule RxNorm: 3252967 1 Capsule(s) PO BID 04/08/2016 04/07/2016 Inactive Diflucan 100 mg tablet RxNorm: 058532 1 Tablet(s) PO QD 04/08/2016 Inactive ondansetron HCl 4 mg tablet RxNorm: 423992 1 Tablet(s) PO Q4H as needed for nausea and vomiting 04/08/2016 09/22/2017 Inactive gabapentin 600 mg tablet RxNorm: 946318 TAKE ONE TABLET BY MOUT H TWICE A DAY 03/24/2016 06/25/2016 Inactive Synthroid 112 mcg tablet RxNorm: 665665 TAKE ONE TABLET BY MOUT H DAILY 02/25/2016 04/22/2016 Inactive Levaquin 500 mg tablet RxNorm: 842191 1 Tablet(s) PO QD 01/23/2016 Inactive prednisone 20 mg tablet RxNorm: 119228 1 Tablet(s) PO T ID for 3 days then 1 po BID for 3 days then one daily for 3 days 01/23/2016 08/25/2016 Inactiv e ABSMaterials Ultra Test strips RxNorm: TEST BLOOD SUGAR ONCE DAILY 250.00 01/09/2016 11/04/2017 Inactive methocarbamol 750 mg tablet RxNorm: 095030 2 Tablet(s) PO TID as needed for muscle spasm 01/09/2016 04/23/2016 Inactive lactulose 10 gram/15 mL oral solution RxNorm: 496387 [address](s) PO QD 01/09/2016 09/22/2017 Inactive TAKE 1 TABLESPOON BY MOUTH ONCE DAILY metformin ER 500 mg tablet,extended release 24 hr RxNorm: 86 0975 1 Tablet(s) PO QD 12/26/2015 04/22/2016 Inactive fluoxetine 20 mg capsule RxNorm: 765757 1 Capsule(s) PO QD 12/23/19 16 06/19/2016 Inactive Premarin 0.45 mg tablet RxNorm: 170281 TAKE ONE TABLET BY MOUTH DAILY 12/23/2015 05/20/2016 Inactive fluoxetine 40 mg capsule RxNorm: 597959 1 Capsule(s) PO QD 12/23/19 16 06/19/2016 Inactive TAKE ONE CAPSULE BY MOUTH EV JANKI MORNING azithromycin 500 mg tablet RxNorm: 493135 1 Tablet(s) PO QD 016 12/19/2015 Inactive Zofran 4 mg tablet RxNorm: 169808 1 Tablet(s) PO Q4H prn nausea /vomiting 12/13/2015 03/30/2018 Inactive azithromycin 500 mg tablet RxNorm: 231397 1 Tablet(s) PO QD 016 12/12/2015 Inactive Duragesic 100 mcg/hr transdermal patch RxNorm: 950599 2 Application TD Q48H for pain 12/09/2015 01/07/2016 Inactive oxycodone 10 mg tablet RxNorm: 2298783 1-2 Tablet(s) PO QID as n eeded for pain 12/09/2015 06/04/2016 Inactive Bactroban 2 % topical cream RxNorm: 966283 Application TOP BID 11/2208/25/2016 Inactive doxycycline hyclate 100 mg capsule RxNorm: 3887192 1 Capsule(s) PO BID 12/03/2015 12/12/2015 Inactive Topamax 100 mg tablet RxNorm: 216932 TAKE ONE TABLET BY MOUTH EVERY NIGHT AT BEDTIME 11/25/2015 05/22/2016 Inactive Symbicort 160 mcg-4.5 mcg/actuation HFA aerosol inhaler RxNo rm: 6878658 INHALE TWO PUFFS TWO TIMES A DAY 11/25/2015 05/22/2016 Inactive Synthroid 112 mcg tablet RxNorm: 104157 Tablet(s) TAKE ONE TABLET BY MOUTH DAILY 11/25/2015 02/22/2016 Inactive omeprazole 40 mg capsule,delayed release RxNorm: 130339 1 Capsu le(s) PO QD 11/12/2015 05/05/2016 Inactive oxycodone 10 mg tablet RxNorm: 6534404 1-2 Tablet(s) PO QID as n eeded for pain 11/05/2015 12/08/2015 Inactive Duragesic 100 mcg/hr transdermal patch RxNorm: 704999 2 Application TD Q48H for pain 11/05/2015 12/04/2015 Inactive omeprazole 40 mg capsule,delayed release RxNorm: 628156 1 Capsu le(s) PO QD 10/07/2015 11/11/2015 Inactive Januvia 100 mg tablet RxNorm: 825627 TAKE ONE TABLET BY MOUTH DAILY 09/11/2015 12/25/2015 Inactive Zithromax 500 mg tablet RxNorm: 328614 1 Tablet(s) PO QD 09/10/2015 1 Inactive prednisone 20 mg tablet RxNorm: 300382 1 Tablet(s) PO T ID for 3 days then 1 po BID for 3 days then one daily for 3 days 09/10/2015 08/25/2016 Inactiv e Wellbutrin XL 300 mg 24 hr tablet, extended release RxNorm: 569346 1 Tablet(s) PO QAM 09/10/2015 12/02/2015 Inactive Topamax 100 mg tablet RxNorm: 589824 TAKE ONE TABLET BY MOUTH EVERY NIGHT AT BEDTIME 09/02/2015 11/24/2015 Inactive Synthroid 112 mcg tablet RxNorm: 949879 TAKE ONE TABLET BY MOUT H DAILY 09/02/2015 11/25/2015 Inactive methocarbamol 750 mg tablet RxNorm: 726956 2 Tablet(s) PO TID as needed for muscle spasm 08/15/2015 01/09/2016 Inactive Wellbutrin XL 150 mg 24 hr tablet, extended release RxNorm: 419460 TAKE ONE TABLET BY MOUTH EVERY MORNING 08/13/2015 08/13/2015 Inactive gabapentin 600 mg tablet RxNorm: 576832 1 Tablet(s) PO BID 08/13/20 15 02/08/2016 Inactive Wellbutrin XL 300 mg 24 hr tablet, extended release RxNorm: 336383 1 Tablet(s) PO QAM 08/06/2015 09/09/2015 Inactive Wellbutrin XL 150 mg 24 hr tablet, extended release RxNorm: 698845 1 Tablet(s) PO QAM 07/18/2015 08/05/2015 Inactive prednisone 20 mg tablet RxNorm: 543799 1 Tablet(s) PO BID 07/18/2015 07/22/2015 Inactive doxycycline hyclate 100 mg tablet,delayed release RxNorm: 43 4018 1 Tablet(s) PO BID 07/18/2015 07/27/2015 Inactive pravastatin 40 mg tablet RxNorm: 749413 1 Tablet(s) PO QD NEEDS FASTING LAB 07/15/2015 07/14/2015 Inactive pravastatin 40 mg tablet RxNorm: 502946 1 Tablet(s) PO QD NEEDS FASTING LAB 07/15/2015 01/25/2018 Inactive Ventolin HFA 90 mcg/actuation aerosol inhaler RxNorm: 227064 2 Puff(s) INH Q4H 07/08/2015 07/07/2015 Inactive prn Premarin 0.45 mg tablet RxNorm: 453720 1 Tablet(s) PO QD 07/01/2015 0 12/22/2015 Inactive pravastatin 40 mg tablet RxNorm: 023235 1 Tablet(s) PO QD NEEDS FASTING LAB 06/14/2015 07/15/2015 Inactive Ventolin HFA 90 mcg/actuation aerosol inhaler RxNorm: 5158015 2 Puff(s) INH Q4H 06/06/2015 07/08/2015 Inactive prn albuterol sulfate 2.5 mg/3 mL (0.083 %) solution for n ebulization RxNorm: 446820 1 Unit Dose INH QID 05/30/2015 No Stop Date Active Duragesic 100 mcg/hr transdermal patch RxNorm: 575021 2 Application TD Q48H for pain 04/29/2015 05/28/2015 Inactive gabapentin 600 mg tablet RxNorm: 092627 1 Tablet(s) PO BID 04/11/20 15 08/13/2015 Inactive Onglyza 5 mg tablet RxNorm: 217133 1 Tablet(s) PO QD for blood suga r 04/10/2015 04/15/2015 Inactive [Brand Copay Card: RxBIN:[id number] PCN:CRISTIANA RxGRP:[id number] ID#:[id number]] methocarbamol 750 mg tablet RxNorm: 479080 2 Tablet(s) PO TID as needed for muscle spasm 03/28/2015 08/15/2015 Inactive pravastatin 40 mg tablet RxNorm: 037587 1 Tablet(s) PO QD 03/19/2015 03/18/2015 Inactive pravastatin 40 mg tablet RxNorm: 783818 1 Tablet(s) PO QD 03/19/2015 06/14/2015 Inactive lactulose 10 gram/15 mL oral solution RxNorm: 018422 [address]s) PO QD 03/07/2015 01/09/2016 Inactive TAKE 1 TABLESPOON BY MOUTH ONCE DAILY oxycodone 20 mg tablet RxNorm: 0873563 1 Tablet(s) PO QID as nee ded for pain 03/05/2015 07/08/2015 Inactive Topamax 100 mg tablet RxNorm: 206720 1 Tablet(s) PO QHS TAKE ONE TABLET BY MOUTH AT BEDTIME 02/25/2015 02/12/2019 Inactive metformin ER 500 mg tablet,extended release 24 hr RxNorm: 86 0975 1 Tablet(s) PO QD 02/11/2015 03/04/2015 Inactive take one tablet by mouth every day Daliresp 500 mcg tablet RxNorm: 2047293 1 Tablet(s) PO QD 02/11/2015 08/09/2015 Inactive Endocet 10 mg-325 mg tablet RxNorm: 0398294 1 Tablet(s) PO Q4H as needed for pain 01/23/2015 01/23/2015 Inactive gabapentin 600 mg tablet RxNorm: 311423 1 Tablet(s) PO BID 01/23/20 15 04/11/2015 Inactive methocarbamol 750 mg tablet RxNorm: 297602 2 Tablet(s) PO TID as needed for muscle spasm 01/15/2015 02/13/2015 Inactive fluoxetine 40 mg capsule RxNorm: 059973 1 Capsule(s) PO QD 01/14/20 15 12/23/2015 Inactive TAKE ONE CAPSULE BY MOUTH EV JANKI MORNING fluoxetine 20 mg capsule RxNorm: 558086 1 Capsule(s) PO QD 01/14/20 15 12/23/2015 Inactive Premarin 0.45 mg tablet RxNorm: 348794 1 Tablet(s) PO QD 01/02/2015 0 07/01/2015 Inactive Endocet 10 mg-325 mg tablet RxNorm: 3928120 1-2 Tablet(s) PO Q4H 02/12/2019 Inactive PRN PAIN Duragesic 100 mcg/hr transdermal patch RxNorm: 557269 2 Application TD Q48H for pain 12/25/2014 01/23/2015 Inactive Topamax 100 mg tablet RxNorm: 360816 1 Tablet(s) PO QHS TAKE ONE TABLET BY MOUTH AT BEDTIME 12/25/2014 02/24/2015 Inactive Tudorza Pressair 400 mcg/actuation breath activated RxNorm: 6183789 1 BID INHALE ONE PUFF INTO LUNGS TWO TIMES A DAY 12/17/2014 05/15/2015 Inactive Endocet 10 mg-325 mg tablet RxNorm: 2986228 1-2 Tablet(s) PO Q4H 12/19/2014 Inactive PRN PAIN Duragesic 100 mcg/hr transdermal patch RxNorm: 040254 2 Application TD Q48H for pain 11/20/2014 12/24/2014 Inactive ABSMaterials Ultra Test strips RxNorm: TEST BLOOD SUGAR ONCE DAILY 250.00 11/16/2014 01/08/2016 Inactive omeprazole 40 mg capsule,delayed release RxNorm: 218727 1 Capsu le(s) PO QD 11/13/2014 11/12/2015 Inactive metformin ER 500 mg tablet,extended release 24 hr RxNorm: 86 0975 1 Tablet(s) PO QD 11/12/2014 02/11/2015 Inactive take one tablet by mouth every day Symbicort 160 mcg-4.5 mcg/actuation HFA aerosol inhaler RxNo rm: 0849052 2 Puff(s) INH BID 11/12/2014 03/11/2015 Inactive INHALE 2 PUFFS O RALLY TWO TIMES A DAY gabapentin 800 mg tablet RxNorm: 473248 1 Tablet(s) PO QD TAKE ONE TABLET BY MOUTH ONCE A DAY 10/22/2014 01/01/2015 Inactive Endocet 10 mg-325 mg tablet RxNorm: 6855944 1-2 Tablet(s) PO Q4H 11/15/2014 Inactive PRN PAIN Duragesic 100 mcg/hr transdermal patch RxNorm: 834363 2 Application TD Q48H for pain 10/17/2014 11/19/2014 Inactive gabapentin 800 mg tablet RxNorm: 674382 1 Tablet(s) PO QD TAKE ONE TABLET BY MOUTH ONCE A DAY 10/04/2014 10/21/2014 Inactive Premarin 0.9 mg tablet RxNorm: 606969 1 Tablet(s) PO QD TAKE ONE TABLET BY MOUTH ONCE A DAY 10/04/2014 01/01/2015 Inactive Spiriva with HandiHaler 18 mcg & inhalation capsules RxNorm: 845053 1 Capsule(s) INH QD 10/03/2014 04/30/2015 Inactive Levaquin 500 mg tablet RxNorm: 271515 1 Tablet(s) PO QD 10/03/2014 Inactive prednisone 20 mg tablet RxNorm: 852873 1 Tablet(s) PO QD 10/03/2014 1 12/09/2013 Inactive Duragesic 100 mcg/hr transdermal patch RxNorm: 236336 2 Application TD Q48H for pain 09/18/2014 10/16/2014 Inactive Endocet 10 mg-325 mg tablet RxNorm: 3115248 1-2 Tablet(s) PO Q4H 10/16/2014 Inactive PRN PAIN Synthroid 112 mcg tablet RxNorm: 027419 1 Tablet(s) QD 09/10/2014 Inactive Synthroid 112 mcg tablet RxNorm: 806273 TAKE ONE TABLET BY MOUTH ONE TIME A DAY. NEEDS LABS 09/10/2014 02/06/2015 Inactive omeprazole 40 mg capsule,delayed release RxNorm: 461207 1 Capsu le(s) PO QD 09/03/2014 11/13/2014 Inactive omeprazole 40 mg capsule,delayed release RxNorm: 950153 1 Capsu le(s) PO QD 09/03/2014 09/02/2014 Inactive Spiriva with HandiHaler 18 mcg & inhalation capsules RxNorm: 587907 1 Capsule(s) INH QD 08/27/2014 10/02/2014 Inactive gabapentin 600 mg tablet RxNorm: 199568 1 Tablet(s) PO BID 08/27/20 14 10/22/2014 Inactive Endocet 10 mg-325 mg tablet RxNorm: 6064206 1-2 Tablet(s) PO Q4H 09/17/2014 Inactive PRN PAIN fentanyl 100 mcg/hr transdermal patch RxNorm: 533919 1 Unit Dos e TD QD 08/21/2014 09/19/2014 Inactive Daliresp 500 mcg tablet RxNorm: 8933675 1 Tablet(s) PO QD 08/13/2014 02/11/2015 Inactive Synthroid 112 mcg tablet RxNorm: 561436 TAKE ONE TABLET BY MOUTH ONE TIME A DAY. NEEDS LABS 08/10/2014 09/10/2014 Inactive Endocet 10 mg-325 mg tablet RxNorm: 2864354 1-2 Tablet(s) PO Q4H 08/17/2014 Inactive PRN PAIN Duragesic 100 mcg/hr transdermal patch RxNorm: 941133 2 Application TD Q48H for pain 07/19/2014 09/17/2014 Inactive fluoxetine 40 mg capsule RxNorm: 345824 1 Capsule(s) PO QD 07/17/20 14 01/14/2015 Inactive TAKE ONE CAPSULE BY MOUTH EV JANKI MORNING fluoxetine 20 mg capsule RxNorm: 236938 1 Capsule(s) PO QD 07/17/20 14 01/14/2015 Inactive Spiriva with HandiHaler 18 mcg & inhalation capsules RxNorm: 718059 1 Capsule(s) INH QD 07/17/2014 08/26/2014 Inactive INHALE CONTENTS OF 1 CAPSULE(S) WITH HANDIHALER ONCE DAILY Zofran 4 mg tablet RxNorm: 830999 1 Tablet(s) PO Q4H prn nausea 07/25/2014 Inactive Synthroid 112 mcg tablet RxNorm: 706567 1 Tablet(s) PO QD 07/09/2014 07/09/2014 Inactive methocarbamol 750 mg tablet RxNorm: 628513 2 Tablet(s) PO TID as needed for muscle spasm 07/09/2014 09/06/2014 Inactive Synthroid 112 mcg tablet RxNorm: 480137 1 Tablet(s) PO QD - nee d labs 07/09/2014 08/07/2014 Inactive Medrol (Aníbal) 4 mg tablets in a dose pack RxNorm: 105219 6 Tablet(s) PO QD --then as directed 07/03/2014 07/08/2014 Inactive Tudorza Pressair 400 mcg/actuation breath activated RxNorm: 5268810 1 Puff(s) INH BID 07/03/2014 12/17/2014 Inactive cefdinir 300 mg capsule RxNorm: 294008 1 Capsule(s) PO BID 07/03/20 14 07/12/2014 Inactive Topamax 100 mg tablet RxNorm: 543808 Tablet(s) TAKE ONE TABLET BY MOUTH AT BEDTIME 07/02/2014 02/25/2015 Inactive Duragesic 100 mcg/hr transdermal patch RxNorm: 886322 2 Application TD Q48H for pain 06/25/2014 07/18/2014 Inactive Endocet 10 mg-325 mg tablet RxNorm: 7584595 1-2 Tablet(s) PO Q4H 07/18/2014 Inactive PRN PAIN metformin ER 500 mg tablet,extended release 24 hr RxNorm: 86 0975 1 Tablet(s) PO QD Needs labs 06/18/2014 07/01/2014 Inactive take one tablet by mouth every day Duragesic 100 mcg/hr transdermal patch RxNorm: 730125 2 Application TD Q48H for pain 05/22/2014 06/24/2014 Inactive Synthroid 112 mcg tablet RxNorm: 291017 1 Tablet(s) PO QD 05/22/2014 07/09/2014 Inactive Endocet 10 mg-325 mg tablet RxNorm: 4991027 1-2 Tablet(s) PO Q4H 06/20/2014 Inactive PRN PAIN Endocet 10 mg-325 mg tablet RxNorm: 3228539 1-2 Tablet(s) PO Q4H 05/21/2014 Inactive PRN PAIN Duragesic 100 mcg/hr transdermal patch RxNorm: 930273 2 Application TD Q48H for pain 04/25/2014 05/21/2014 Inactive Daliresp 500 mcg tablet RxNorm: 7242334 1 Tablet(s) PO QD 04/24/2014 08/13/2014 Inactive Symbicort 160 mcg-4.5 mcg/actuation HFA aerosol inhaler RxNo rm: 1378329 2 Puff(s) INH BID 04/24/2014 08/21/2014 Inactive INHALE 2 PUFFS O RALLY TWO TIMES A DAY metformin ER 500 mg tablet,extended release 24 hr RxNorm: 86 0975 1 Tablet(s) PO QD 04/24/2014 11/12/2014 Inactive TAKE ONE TABLET BY MOUTH EVERY DAY [AttnRPh:Saving Apply/Adjudicate RxGRP:LDMGRP RxBIN:[id number] RxPCN:2012 PCode:01 ID#:[id number]] Symbicort 160 mcg-4.5 mcg/actuation HFA aerosol inhaler RxNo rm: 2999698 2 Puff(s) INH BID 04/24/2014 11/12/2014 Inactive INHALE 2 PUFFS O RALLY TWO TIMES A DAY Premarin 0.9 mg tablet RxNorm: 121160 1 Tablet(s) PO QD 04/24/2014 Inactive TAKE ONE TABLET BY MOUTH EVERY DAY metformin ER 500 mg tablet,extended release 24 hr RxNorm: 86 0975 1 Tablet(s) PO QD Needs labs 04/24/2014 06/18/2014 Inactive TAKE ONE TABLET BY MOUTH EVERY DAY [AttnRPh:Saving Apply/Adjudicate RxGRP:LDMGRP RxBIN:[id number] RxPCN:2012 PCode:01 ID#:[id number]] gabapentin 800 mg tablet RxNorm: 161402 1 Tablet(s) PO QD 04/24/2014 10/04/2014 Inactive TAKE ONE TABLET BY MOUTH EVERY DAY Topamax 100 mg tablet RxNorm: 835935 1 Tablet(s) PO QHS 04/17/2014 Inactive Topamax 100 mg tablet RxNorm: 641507 TAKE ONE TABLET BY MOUTH A T BEDTIME 04/17/2014 07/01/2014 Inactive Tudorza Pressair 400 mcg/actuation breath activated RxNorm: 9029259 1 Puff(s) INH BID 04/11/2014 07/02/2014 Inactive Duragesic 100 mcg/hr transdermal patch RxNorm: 309120 2 Application TD Q48H for pain 03/27/2014 04/24/2014 Inactive Endocet 10 mg-325 mg tablet RxNorm: 4225004 1-2 Tablet(s) PO Q4H 04/24/2014 Inactive PRN PAIN Robaxin 750 mg tablet RxNorm: 460262 2 Tablet(s) PO TID as need ed for spasm 02/23/2014 03/28/2015 Inactive Duragesic 100 mcg/hr transdermal patch RxNorm: 414779 2 Application TD Q48H for pain 02/23/2014 No Stop Date Active Endocet 10 mg-325 mg tablet RxNorm: 2710858 1-2 Tablet(s) PO Q4H 03/23/2014 Inactive PRN PAIN Synthroid 112 mcg tablet RxNorm: 964714 1 Tablet(s) PO QD TAKE ONE TABLET BY MOUTH EVERY DAY 02/15/2014 05/22/2014 Inactive Zithromax 500 mg tablet RxNorm: 574944 1 Tablet(s) PO QD 01/30/2014 0 02/05/2014 Inactive Diflucan 100 mg tablet RxNorm: 460821 1 Tablet(s) PO QD 01/30/2014 Inactive prednisone 20 mg tablet RxNorm: 456065 1 Tablet(s) PO BID 01/30/2014 02/05/2014 Inactive fluoxetine 40 mg capsule RxNorm: 427407 1 Capsule(s) PO QD 01/23/20 14 07/16/2014 Inactive TAKE ONE CAPSULE BY MOUTH EV JANKI MORNING fluoxetine 40 mg capsule RxNorm: 739493 1 Capsule(s) PO QD 01/23/20 14 07/17/2014 Inactive TAKE ONE CAPSULE BY MOUTH EV JANKI MORNING cefdinir 300 mg capsule RxNorm: 652446 1 Capsule(s) PO BID 01/16/20 14 01/29/2014 Inactive Zithromax 500 mg tablet RxNorm: 556986 1 Tablet(s) PO QD 01/16/2014 0 01/22/2014 Inactive prednisone 20 mg tablet RxNorm: 203794 1 Tablet(s) PO BID 01/16/2014 01/22/2014 Inactive Spiriva with HandiHaler 18 mcg and inhalation capsules RxNor m: 556626 1 Capsule(s) INH QD 12/18/2013 07/17/2014 Inactive INHALE CONTENT S OF 1 CAPSULE(S) WITH HANDIHALER ONCE DAILY fluoxetine 20 mg capsule RxNorm: 577415 1 Capsule(s) PO QD 12/18/19 14 06/15/2014 Inactive Spiriva with HandiHaler 18 mcg & inhalation capsules RxNorm: 731333 1 Capsule(s) INH QD 12/18/2013 06/15/2014 Inactive INHALE CONTENTS OF 1 CAPSULE(S) WITH HANDIHALER ONCE DAILY fluoxetine 20 mg capsule RxNorm: 586735 1 Capsule(s) PO QD 12/18/19 14 07/17/2014 Inactive cefdinir 300 mg capsule RxNorm: 252032 2 Capsule(s) PO QD 12/12/2013 12/21/2013 Inactive Duragesic 100 mcg/hr transdermal patch RxNorm: 206443 2 Application TD Q48H for pain 12/08/2013 12/07/2013 Inactive Topamax 100 mg tablet RxNorm: 797903 1 Tablet(s) PO QHS 12/04/2013 Inactive Endocet 10 mg-325 mg tablet RxNorm: 8156912 1-2 Tablet(s) PO Q4H 12/26/2013 Inactive PRN PAIN Robaxin 750 mg tablet RxNorm: 999751 2 Tablet(s) PO TID as need ed for spasm 11/07/2013 01/05/2014 Inactive gabapentin 800 mg tablet RxNorm: 713971 1 Tablet(s) PO QD 10/16/2013 04/24/2014 Inactive TAKE ONE TABLET BY MOUTH EVERY DAY Symbicort 160 mcg-4.5 mcg/actuation HFA aerosol inhaler RxNo rm: 2568102 2 Puff(s) INH BID 10/16/2013 04/24/2014 Inactive INHALE 2 PUFFS O RALLY TWO TIMES A DAY Premarin 0.9 mg tablet RxNorm: 102489 1 Tablet(s) PO QD 10/16/2013 Inactive TAKE ONE TABLET BY MOUTH EVERY DAY metformin ER 500 mg tablet,extended release 24 hr RxNorm: 86 0975 1 Tablet(s) PO QD 10/16/2013 04/24/2014 Inactive TAKE ONE TABLET BY MOUTH EVERY DAY Daliresp 500 mcg tablet RxNorm: 7999759 1 Tablet(s) PO QD 10/16/2013 04/24/2014 Inactive Robaxin 750 mg tablet RxNorm: 349472 2 Tablet(s) PO TID as need ed for spasm 10/10/2013 11/06/2013 Inactive Duragesic 100 mcg/hr transdermal patch RxNorm: 965149 2 Application TD Q48H for pain 10/09/2013 No Stop Date Active Soma 350 mg tablet RxNorm: 461281 1 Tablet(s) PO TID 09/27/201310/09 Inactive TAKE ONE TABLET BY MOUTH THREE TIMES A D AY lactulose 10 gram/15 mL oral solution RxNorm: 676558 [address](s) PO QD 09/13/2013 03/07/2015 Inactive TAKE 1 TABLESPOON BY MOUTH ONCE DAILY Duragesic 100 mcg/hr transdermal patch RxNorm: 667686 2 Application TD Q48H for pain 09/06/2013 No Stop Date Active Endocet 10 mg-325 mg tablet RxNorm: 9730214 1-2 Tablet(s) PO Q4H 09/27/2013 Inactive PRN PAIN lancets 28 gauge RxNorm: Miscellaneous As needed for blo od glucose sticks 08/24/2013 No Stop Date Active 16.2 mg-0.1037 mg-0.0194 mg tablet RxNorm: 3475695 Tablet(s) PO PRN for gas and cramping 08/24/2013 01/19/2017 Inactive TAKE TWO TABLET S BY MOUTH THREE TIMES A DAY NEEDED FOR GAS AND CRAMPING Topamax 100 mg tablet RxNorm: 146188 1 Tablet(s) PO QHS 07/31/2013 Inactive Diflucan 100 mg tablet RxNorm: 590371 1 Tablet(s) PO QD 07/27/2013 Inactive cefdinir 300 mg capsule RxNorm: 592561 1 Capsule(s) PO BID 07/26/20 13 08/08/2013 Inactive Daliresp 500 mcg tablet RxNorm: 7172473 1 Tablet(s) PO QD 07/25/2013 10/15/2013 Inactive fluoxetine 40 mg capsule RxNorm: 000141 1 Capsule(s) PO QD 07/25/20 13 01/22/2014 Inactive TAKE ONE CAPSULE BY MOUTH EV JANKI MORNING Senokot-S 8.6 mg-50 mg tablet RxNorm: 2811123 1 Tablet(s) PO BID 10/25/2013 Inactive doxycycline hyclate 100 mg capsule RxNorm: 4907212 1 Capsule(s) PO BID 06/28/2013 07/07/2013 Inactive prednisone 20 mg tablet RxNorm: 266235 1 Tablet(s) PO BID 06/28/2013 07/04/2013 Inactive Zofran 4 mg tablet RxNorm: 560843 1 Tablet(s) PO Q4H prn nausea 03/201307/05/2013 Inactive Spiriva with HandiHaler 18 mcg & inhalation capsules RxNorm: 738806 1 Capsule(s) INH QD 06/26/2013 12/18/2013 Inactive INHALE CONTENTS OF 1 CAPSULE(S) WITH HANDIHALER ONCE DAILY Synthroid 112 mcg tablet RxNorm: 293827 1 Tablet(s) PO QD TAKE ONE TABLET BY MOUTH EVERY DAY 06/19/2013 02/15/2014 Inactive fluoxetine 20 mg capsule RxNorm: 327941 1 Capsule(s) PO QD 06/19/20 13 12/18/2013 Inactive Ventolin HFA 90 mcg/actuation Aerosol Inhaler RxNorm: 9768145 2 Puff(s) INH Q4H 06/05/2013 No Stop Date Active prn Soma 350 mg tablet RxNorm: 367336 1 Tablet(s) PO TID 06/05/201307/04 Inactive TAKE ONE TABLET BY MOUTH THREE TIMES A D AY prednisone 20 mg tablet RxNorm: 694009 1 Tablet(s) PO QD 05/31/2013 0 06/06/2013 Inactive Topamax 100 mg tablet RxNorm: 470154 1 Tablet(s) PO QHS 05/22/2013 Inactive Levaquin 500 mg tablet RxNorm: 819177 1 Tablet(s) PO QD 05/03/2013 Inactive Diflucan 100 mg tablet RxNorm: 218668 1 Tablet(s) PO QD 05/03/2013 Inactive Daliresp 500 mcg tablet RxNorm: 1782818 1 Tablet(s) PO QD 05/01/2013 07/24/2013 Inactive Daliresp 500 mcg tablet RxNorm: 3012885 1 Tablet(s) PO QD 05/01/2013 04/30/2013 Inactive gabapentin 800 mg tablet RxNorm: 374538 1 Tablet(s) PO QD 04/10/2013 10/06/2013 Inactive TAKE ONE TABLET BY MOUTH EVERY DAY metformin ER 500 mg tablet,extended release 24 hr RxNorm: 86 0977 1 Tablet(s) PO QD 04/10/2013 10/06/2013 Inactive TAKE ONE TABLET BY MOUTH EVERY DAY Premarin 0.9 mg tablet RxNorm: 934706 1 Tablet(s) PO QD 04/10/2013 Inactive TAKE ONE TABLET BY MOUTH EVERY DAY Symbicort 160 mcg-4.5 mcg/actuation HFA aerosol inhaler RxNo rm: 6900330 2 Puff(s) INH BID 04/10/2013 10/06/2013 Inactive INHALE 2 PUFFS O RALLY TWO TIMES A DAY Synthroid 112 mcg tablet RxNorm: 529087 1 Tablet(s) PO QD TAKE ONE TABLET BY MOUTH EVERY DAY 04/10/2013 06/18/2013 Inactive Ventolin HFA 90 mcg/actuation Aerosol Inhaler RxNorm: 988350 2 Puff(s) INH Q4H 04/10/2013 No Stop Date Active prn fentanyl 100 mcg/hr transdermal patch RxNorm: 247635 1 Unit Dos e TD QD 04/03/2013 05/02/2013 Inactive Endocet 10 mg-325 mg tablet RxNorm: 0763768 1-2 Tablet(s) PO Q4H 05/02/2013 Inactive PRN PAIN Topamax 100 mg tablet RxNorm: 706432 1 Tablet(s) PO QHS 03/13/2013 Inactive Reglan 10 mg tablet RxNorm: 397770 1 Tablet(s) PO QID b efore meals and at bedtime 03/13/2013 04/09/2015 Inactive fluoxetine 20 mg capsule RxNorm: 112045 1 Capsule(s) PO QD 02/28/20 13 05/27/2013 Inactive Ventolin HFA 90 mcg/actuation Aerosol Inhaler RxNorm: 314778 2 Puff(s) INH Q4H 02/13/2013 No Stop Date Active prn fluoxetine 40 mg capsule RxNorm: 098156 1 Capsule(s) PO QD 01/31/20 13 07/24/2013 Inactive TAKE ONE CAPSULE BY MOUTH EV JANKI MORNING Soma 350 mg tablet RxNorm: 263133 1 Tablet(s) PO TID 01/20/201302/18 Inactive TAKE ONE TABLET BY MOUTH THREE TIMES A D AY Endocet 10 mg-325 mg tablet RxNorm: 2218146 1-2 Tablet(s) PO Q4H 02/06/2013 Inactive PRN PAIN MS Contin 200 mg tablet,extended release RxNorm: 833539 1 Table t(s) PO BID 01/18/2013 02/06/2013 Inactive Ventolin HFA 90 mcg/actuation Aerosol Inhaler RxNorm: 615100 2 Puff(s) INH Q4H 01/04/2013 No Stop Date Active prn Spiriva with HandiHaler 18 mcg & inhalation capsules RxNorm: 192298 1 Capsule(s) INH QD 12/29/2012 06/25/2013 Inactive INHALE CONTENTS OF 1 CAPSULE(S) WITH HANDIHALER ONCE DAILY Spiriva with HandiHaler 18 mcg & inhalation capsules RxNorm: 102507 1 Capsule(s) INH QD 12/26/2012 12/28/2012 Inactive INHALE CONTENTS OF 1 CAPSULE(S) WITH HANDIHALER ONCE DAILY Synthroid 112 mcg tablet RxNorm: 729564 Tablet(s) PO TA KE ONE TABLET BY MOUTH EVERY DAY 12/26/2012 04/09/2013 Inactive Endocet 10 mg-325 mg tablet RxNorm: 6370855 1-2 Tablet(s) PO Q4H 01/17/2013 Inactive PRN PAIN MS Contin 200 mg tablet,extended release RxNorm: 627339 1 Table t(s) PO BID 12/21/2012 01/17/2013 Inactive fluoxetine 20 mg capsule RxNorm: 399589 1 Capsule(s) PO QD 12/06/19 13 02/26/2013 Inactive Synthroid 112 mcg tablet RxNorm: 272611 1 Tablet(s) PO QD 12/06/2012 02/12/2019 Inactive TAKE ONE TABLET BY MOUTH EVERY DAY Ventolin HFA 90 mcg/actuation Aerosol Inhaler RxNorm: 920178 2 Puff(s) INH Q4H 12/06/2012 No Stop Date Active prn Reglan 10 mg tablet RxNorm: 495668 1 Tablet(s) PO QID b efore meals and at bedtime 11/24/2012 03/12/2013 Inactive Topamax 100 mg tablet RxNorm: 981372 1 Tablet(s) PO QHS 11/16/2012 Inactive Ventolin HFA 90 mcg/actuation Aerosol Inhaler RxNorm: 370928 2 Puff(s) INH Q4H 11/09/2012 No Stop Date Active prn gabapentin 800 mg tablet RxNorm: 539617 1 Tablet(s) PO QD 10/27/2012 04/09/2013 Inactive TAKE ONE TABLET BY MOUTH EVERY DAY metformin ER 500 mg tablet,extended release 24 hr RxNorm: 86 0977 1 Tablet(s) PO QD 10/27/2012 04/09/2013 Inactive TAKE ONE TABLET BY MOUTH EVERY DAY Symbicort 160 mcg-4.5 mcg/actuation HFA Aerosol Inhaler RxNo rm: 7460090 2 Puff(s) INH BID 10/27/2012 04/09/2013 Inactive INHALE 2 PUFFS O RALLY TWO TIMES A DAY Premarin 0.9 mg tablet RxNorm: 136767 1 Tablet(s) PO QD 10/27/2012 Inactive TAKE ONE TABLET BY MOUTH EVERY DAY Endocet 10 mg-325 mg tablet RxNorm: 2951533 1-2 Tablet(s) PO Q4H 11/24/2012 Inactive PRN PAIN MS Contin 200 mg tablet,extended release RxNorm: 659393 1 Table t(s) PO BID 10/26/2012 11/24/2012 Inactive Soma 350 mg tablet RxNorm: 967566 1 Tablet(s) PO TID 10/04/201211/02 Inactive TAKE ONE TABLET BY MOUTH THREE TIMES A D AY Ventolin HFA 90 mcg/actuation Aerosol Inhaler RxNorm: 529502 2 Puff(s) INH Q4H 10/03/2012 No Stop Date Active prn Daliresp 500 mcg tablet RxNorm: 1618898 1 Tablet(s) PO QD 09/28/2012 09/27/2012 Inactive Daliresp 500 mcg tablet RxNorm: 1082322 1 Tablet(s) PO QD 09/28/2012 04/25/2013 Inactive fluoxetine 20 mg capsule RxNorm: 202818 1 Capsule(s) PO QD 09/05/2012/06/2012 Inactive Topamax 50 mg tablet RxNorm: 147296 Tablet(s) PO for 1w k then 1 po q HS for 1wk then 2 po q HS 08/29/2012 09/27/2012 Inactive TAKE 1/2 TABLET BY MOUTH AT BEDTIME FOR 1 WEEK, THEN 1 TABLET AT BEDTIME FOR 1 WEEK, THEN 2 TABLETS AT BEDTIME Topamax 100 mg tablet RxNorm: 789127 1 Tablet(s) PO QHS 08/29/2012 Inactive Ventolin HFA 90 mcg/actuation Aerosol Inhaler RxNorm: 881199 2 Puff(s) INH Q4H 08/19/2012 No Stop Date Active prn Ventolin HFA 90 mcg/actuation Aerosol Inhaler RxNorm: 466884 2 Puff(s) INH Q4H 08/15/2012 No Stop Date Active prn Synthroid 112 mcg tablet RxNorm: 728907 1 Tablet(s) PO QD 08/10/2012 11/07/2012 Inactive TAKE ONE TABLET BY MOUTH EVERY DAY Synthroid 112 mcg tablet RxNorm: 730762 1 Tablet(s) PO QD 08/01/2012 08/09/2012 Inactive TAKE ONE TABLET BY MOUTH EVERY DAY Reglan 10 mg tablet RxNorm: 373411 1 Tablet(s) PO QID b efore meals and at bedtime 08/01/2012 11/23/2012 Inactive fluoxetine 40 mg capsule RxNorm: 297688 1 Capsule(s) PO QD 08/01/20 12 01/27/2013 Inactive TAKE ONE CAPSULE BY MOUTH EV JANKI MORNING Ventolin HFA 90 mcg/actuation Aerosol Inhaler RxNorm: 040887 2 Puff(s) INH Q4H 08/01/2012 No Stop Date Active prn Soma 350 mg tablet RxNorm: 294527 1 Tablet(s) PO TID 07/20/201208/18 Inactive TAKE ONE TABLET BY MOUTH THREE TIMES A D AY Spiriva with HandiHaler 18 mcg & inhalation capsules RxNorm: 315833 1 Capsule(s) INH 07/01/2012 12/25/2012 Inactive INHALE CONTENTS OF 1 CAPSULE(S) WITH HANDIHALER ONCE DAILY Zithromax 250 mg Tab RxNorm: 131885 2 Tablet(s) PO QD 06/28/201206/22 Inactive MS Contin 200 mg tablet,extended release RxNorm: 077210 1 Table t(s) PO BID 06/28/2012 07/27/2012 Inactive Endocet 10 mg-325 mg tablet RxNorm: 6216188 1-2 Tablet(s) PO Q4H 07/27/2012 Inactive PRN PAIN Topamax 100 mg tablet RxNorm: 783647 1 Tablet(s) PO QHS 06/28/2012 Inactive 16.2 mg-0.1037 mg-0.0194 mg tablet RxNorm: 6819843 Tablet(s) PO PRN for gas and cramping 06/08/2012 08/23/2013 Inactive TAKE TWO TABLET S BY MOUTH THREE TIMES A DAY NEEDED FOR GAS AND CRAMPING Ventolin HFA 90 mcg/actuation Aerosol Inhaler RxNorm: 364112 2 Puff(s) INH Q4H 05/23/2012 No Stop Date Active prn Ventolin HFA 90 mcg/actuation Aerosol Inhaler RxNorm: 914897 2 Puff(s) INH Q4H 05/11/2012 No Stop Date Active prn Synthroid 112 mcg tablet RxNorm: 804159 1 Tablet(s) PO QD 05/09/2012 07/31/2012 Inactive TAKE ONE TABLET BY MOUTH EVERY DAY gabapentin 800 mg tablet RxNorm: 319427 1 Tablet(s) PO QD 05/09/2012 10/26/2012 Inactive TAKE ONE TABLET BY MOUTH EVERY DAY fluoxetine 40 mg capsule RxNorm: 639266 1 Capsule(s) PO QD 05/09/2007/31/2012 Inactive TAKE ONE CAPSULE BY MOUTH EV JANKI MORNING metformin ER 500 mg tablet,extended release 24 hr RxNorm: 86 0977 1 Tablet(s) PO QD 05/09/2012 10/26/2012 Inactive TAKE ONE TABLET BY MOUTH EVERY DAY Premarin 0.9 mg tablet RxNorm: 621600 1 Tablet(s) PO QD 05/09/2012 Inactive TAKE ONE TABLET BY MOUTH EVERY DAY Symbicort 160 mcg-4.5 mcg/actuation HFA Aerosol Inhaler RxNo rm: 0614121 2 Puff(s) INH BID 05/09/2012 10/26/2012 Inactive INHALE 2 PUFFS O RALLY TWO TIMES A DAY Endocet 10 mg-325 mg Tab RxNorm: 5057812 1-2 Tablet(s) PO Q4H 04/2705/26/2012 Inactive PRN PAIN MS Contin 200 mg Tab RxNorm: 407184 1 Tablet(s) PO BID 04/26/201202/2012 Inactive Ventolin HFA 90 mcg/actuation Aerosol Inhaler RxNorm: 478051 2 Puff(s) INH Q4H 04/25/2012 05/10/2012 Inactive prn Soma 350 mg tablet RxNorm: 266694 2 Tablet(s) PO TID 04/19/201207/19 Inactive TAKE ONE TABLET BY MOUTH THREE TIMES A D AY Ventolin HFA 90 mcg/actuation Aerosol Inhaler RxNorm: 544619 2 Puff(s) INH Q4H 04/12/2012 04/24/2012 Inactive prn Reglan 10 mg tablet RxNorm: 130715 1 Tablet(s) PO QID b efore meals and at bedtime 04/11/2012 07/31/2012 Inactive MS Contin 200 mg Tab RxNorm: 132730 1 Tablet(s) PO BID 03/30/201202/2012 Inactive Endocet 10 mg-325 mg Tab RxNorm: 8763407 1-2 Tablet(s) PO Q4H 03/3004/26/2012 Inactive PRN PAIN MS Contin 200 mg Tab RxNorm: 578651 1 Tablet(s) PO BID 03/02/201206/2012 Inactive Endocet 10 mg-325 mg Tab RxNorm: 4809145 1-2 Tablet(s) PO Q4H 03/0203/29/2012 Inactive PRN PAIN Daliresp 500 mcg tablet RxNorm: 4584197 1 Tablet(s) PO QD 03/01/2012 09/28/2012 Inactive MS Contin 200 mg Tab RxNorm: 944883 1 Tablet(s) PO BID 02/02/201208/2012 Inactive Endocet 10 mg-325 mg Tab RxNorm: 9915033 1-2 Tablet(s) PO Q4H 02/0103/01/2012 Inactive PRN PAIN fluoxetine 40 mg capsule RxNorm: 851562 1 Capsule(s) PO QD 02/02/2008/01/2012 Inactive TAKE ONE CAPSULE BY MOUTH EV JANKI MORNING Synthroid 112 mcg Tab RxNorm: 133278 1 Tablet(s) PO QD 01/18/2012 Inactive TAKE ONE TABLET BY MOUTH EVERY DAY lactulose 10 gram/15 mL oral solution RxNorm: 426824 [address]s) PO QD 01/18/2012 No Stop Date Active TAKE 1 TABLESPOON BY MOUTH ONCE DAILY Ventolin HFA 90 mcg/actuation Aerosol Inhaler RxNorm: 051862 2 Puff(s) INH Q4H 01/18/2012 04/11/2012 Inactive prn MS Contin 200 mg Tab RxNorm: 005519 1 Tablet(s) PO BID 01/05/201210/2012 Inactive Endocet 10 mg-325 mg Tab RxNorm: 7656373 1-2 Tablet(s) PO Q4H 01/0502/01/2012 Inactive PRN PAIN ProAir HFA 90 mcg/Actuation Aerosol Inhaler RxNorm: 112327 2 Pu ff(s) INH Q4H 12/21/2011 No Stop Date Active prn for wheezing or shortness of breath Spiriva with HandiHaler 18 mcg & inhalation Caps RxNorm: 580 261 1 Capsule(s) INH 12/21/2011 06/30/2012 Inactive INHALE CONTENTS OF 1 CAPSULE(S) WITH HANDIHALER ONCE DAILY Reglan 10 mg Tab RxNorm: 519285 1 Tablet(s) PO QID before meals and at bedtime 12/21/2011 04/10/2012 Inactive Synthroid 112 mcg Tab RxNorm: 224660 1 Tablet(s) PO QD 12/21/2011 Inactive TAKE ONE TABLET BY MOUTH EVERY DAY Endocet 10 mg-325 mg Tab RxNorm: 9387411 1-2 Tablet(s) PO Q4H 11/2512/24/2011 Inactive PRN PAIN MS Contin 200 mg Tab RxNorm: 138739 1 Tablet(s) PO BID 11/25/201112/2011 Inactive lactulose 10 gram/15 mL Oral Soln RxNorm: 786292 Milliliter(s) PO 1 No Stop Date Active TAKE 1 TABLESPOON BY MOUTH O NCE DAILY lactulose 10 gram/15 mL Oral Soln RxNorm: 637903 Milliliter(s) PO 1 12/12/2010 11/20/2011 Inactive TAKE 1 TABLESPOON BY MOUTH O NCE DAILY Premarin 0.9 mg Tab RxNorm: 608412 1 Tablet(s) PO QD 10/12/201105/08 Inactive TAKE ONE TABLET BY MOUTH EVERY DAY fluoxetine 20 mg capsule RxNorm: 153752 1 Capsule(s) PO QD 10/12/2009/05/2012 Inactive TAKE ONE CAPSULE BY MOUTH EV JANKI DAY Synthroid 112 mcg Tab RxNorm: 508657 1 Tablet(s) PO QD 10/12/2011 Inactive TAKE ONE TABLET BY MOUTH EVERY DAY metformin ER 500 mg 24 hr Tab RxNorm: 463140 1 Tablet(s) PO QD 09/2311/10/2011 Inactive TAKE ONE TABLET BY MOUTH GLYNN RY DAY Synthroid 112 mcg Tab RxNorm: 684844 1 Tablet(s) PO QD 10/12/2011 Inactive TAKE ONE TABLET BY MOUTH EVERY DAY metformin ER 500 mg 24 hr Tab RxNorm: 486319 1 Tablet(s) PO QD 09/2310/11/2011 Inactive TAKE ONE TABLET BY MOUTH GLYNN Prevacid 30 mg Cap RxNorm: 196352 Capsule(s) PO 10/12/2011 01/25/2012 Inactive TAKE ONE CAPSULE BY MOUTH EVERY DAY Symbicort 160 mcg-4.5 mcg/actuation HFA Aerosol Inhaler RxNo rm: 6120961 2 Puff(s) INH BID 10/12/2011 05/08/2012 Inactive INHALE 2 PUFFS O RALLY TWO TIMES A DAY gabapentin 800 mg Tab RxNorm: 554125 1 Tablet(s) PO QD 10/12/2011 Inactive TAKE ONE TABLET BY MOUTH EVERY DAY MS Contin 200 mg Tab RxNorm: 222912 1 Tablet(s) PO BID 09/23/201111/2010 Inactive Endocet 10 mg-325 mg Tab RxNorm: 2694492 1-2 Tablet(s) PO Q4H 09/2310/22/2011 Inactive PRN PAIN Endocet 10 mg-325 mg Tab RxNorm: 5984012 1-2 Tablet(s) PO Q4H 08/2109/19/2011 Inactive PRN PAIN MS Contin 200 mg Tab RxNorm: 848042 1 Tablet(s) PO BID 08/21/2011 Inactive Diflucan 100 mg Tab RxNorm: 791817 1 Tablet(s) PO QD 08/10/201108/16 Inactive cefdinir 300 mg Cap RxNorm: 987149 2 Capsule(s) PO QD 08/10/201107/24 Inactive Reglan 10 mg Tab RxNorm: 699880 1 Tablet(s) PO AC & HS 07/15/2011 Inactive Endocet 10 mg-325 mg Tab RxNorm: 1544669 1-2 Tablet(s) PO Q4H 07/1508/13/2011 Inactive PRN PAIN One Touch Ultra Test strips RxNorm: Miscellaneous BID 06/11/2011 1 01/16/2014 Inactive TEST TWO TIMES A DAY lactulose 10 gram/15 mL Oral Soln RxNorm: 438432 Milliliter(s) PO 0 06/10/2011 10/11/2011 Inactive TAKE 1 TABLESPOON BY MOUTH O NCE DAILY Chantix Continuing Month Aníbal 1 mg Tab RxNorm: 431089 Tablet(s) PO 0 06/10/2011 11/02/2011 Inactive TAKE DIRECTED - PER P[employer] GE INSTRUCTIONS fluoxetine 40 mg Cap RxNorm: 341519 Capsule(s) PO 06/10/2011 02/02/20 Inactive TAKE ONE CAPSULE BY MOUTH EVERY MORNING Chantix Continuing Month Aníbal 1 mg Tab RxNorm: 936458 Ta blet(s) PO TAKE DIRECTED - PER PACKAGE INSTRUCTIONS 05/13/2011 06/09/2011 Inactive Soma 350 mg Tab RxNorm: 450395 Tablet(s) PO TAKE ON E TABLET BY MOUTH THREE TIMES A DAY 05/13/2011 04/18/2012 Inactive Chantix Continuing Month Aníbal 1 mg Tab RxNorm: 592375 Ta blet(s) PO as directed per package instructions. 04/22/2011 05/12/2011 Inactive Symbicort 160 mcg-4.5 mcg/Actuation HFA Aerosol Inhaler RxNo rm: 3219071 HFA Aerosol Inhaler INH INHALE 2 PUFFS ORALLY TWO TIMES A DAY 04/13/2011 Inactive Synthroid 112 mcg Tab RxNorm: 398545 Tablet(s) PO TAKE ONE TABLET BY MOUTH EVERY DAY 04/13/2011 10/12/2011 Inactive Premarin 0.9 mg Tab RxNorm: 004495 Tablet(s) PO TAKE ON E TABLET BY MOUTH EVERY DAY 04/13/2011 10/12/2011 Inactive gabapentin 800 mg Tab RxNorm: 271277 Tablet(s) PO TAKE ONE TABLET BY MOUTH EVERY DAY 04/13/2011 10/12/2011 Inactive Prevacid 30 mg Cap RxNorm: 144380 1 Capsule(s) PO QD 04/13/201110/11 Inactive Spiriva with HandiHaler 18 mcg & inhalation Caps RxNorm: 580 261 Capsule(s) INH INHALE CONTENTS OF 1 CAPSULE(S) WITH HANDIHALER ONCE DAILY 04/13/2011 12/21/2011 Inactive metformin ER 500 mg 24 hr Tab RxNorm: 933251 Tablet(s) PO TAKE ONE TABLET BY MOUTH EVERY DAY 04/13/2011 10/12/2011 Inactive Soma 350 mg Tab RxNorm: 265947 1 Tablet(s) PO QID 03/30/2011 02/13/20 19 Inactive fluoxetine 20 mg Cap RxNorm: 724701 Capsule(s) PO TAKE ONE CAPSULE BY MOUTH EVERY DAY 03/25/2011 10/12/2011 Inactive cefdinir 300 mg Cap RxNorm: 561627 2 Capsule(s) PO QD 03/19/201105/2011 Inactive 16.2 mg-0.1037 mg-0.0194 mg Tab RxNorm: 0007607 2 Tablet(s) PO TID PRN for gas and cramping 03/16/2011 07/13/2011 Inactive Soma 350 mg Tab RxNorm: 061363 2 Tablet(s) PO TID 03/16/2011 03/29/20 11 Inactive Chantix Starting Month Aníbal 0.5 mg (11)-1 mg (3x14) Tab s in a Dose Pack RxNorm: 028353 Tablet(s) PO as directed 03/02/2011 No Stop Date Active diazepam 10 mg Tab RxNorm: 706152 1 Tablet(s) PO BID 02/10/201101/19 Inactive Zofran 4 mg tablet RxNorm: 629219 1 Tablet(s) PO Q4H prn nausea 02/16/2011 Inactive Diflucan 100 mg Tab RxNorm: 337556 1 Tablet(s) PO QD 01/18/201101/24 Inactive Premarin 0.625 mg/g Vaginal Cream RxNorm: 496943 VAG In sert 1gm vaginally at bedtime 3 times weekly 01/18/2011 02/12/2019 Inactive loratadine 10 mg Tab RxNorm: 2330661 1 Tablet(s) PO QD 12/17/201003/2012 Inactive Spiriva with HandiHaler 18 mcg & inhalation Caps RxNorm: 580 261 1 Capsule(s) INH QD 12/17/2010 04/12/2011 Inactive Diflucan 100 mg Tab RxNorm: 580475 1 Tablet(s) PO QD 12/17/201012/23 Inactive diazepam 10 mg Tab RxNorm: 096631 1 Tablet(s) PO BID and PRN 201002/12/2019 Inactive One Touch Ultra Test Strips RxNorm: InVt BID Zainab t blood sugar at least twice daily. 11/11/2010 06/11/2011 Inactive fluoxetine 40 mg Cap RxNorm: 964878 1 Capsule(s) PO QAM 11/11/2010 Inactive diazepam 10 mg Tab RxNorm: 463572 1 Tablet(s) PO BID and PRN 200911/12/2010 Inactive Bactrim DS 800 mg-160 mg Tab RxNorm: 310821 1 Tablet(s) PO BID 09/2210/15/2010 Inactive fluoxetine 20 mg Cap RxNorm: 282100 1 Capsule(s) PO QD 10/02/201008/2011 Inactive Bactrim DS 800 mg-160 mg Tab RxNorm: 386595 1 Tablet(s) PO BID 01/201010/03/2010 Inactive Zofran 4 mg Tab RxNorm: 031787 1 Tablet(s) PO Q4H prn nausea 200910/16/2010 Inactive 16.2 mg-0.1037 mg-0.0194 mg Tab RxNorm: 7290830 2 Tablet(s) PO TID PRN for gas and cramping 09/17/2010 10/21/2010 Inactive Gabapentin 800 mg Tab RxNorm: 396322 1 Tablet(s) PO QD 09/16/2010 Inactive ProAir HFA 90 mcg/Actuation Aerosol Inhaler RxNorm: 801146 2 Puff(s) INH Q4H prn shortness of breath 09/15/2010 12/13/2010 Inactive gabapentin 800 mg Tab RxNorm: 414928 1 Tablet(s) PO QD 09/15/2010 Inactive Prevacid 30 mg Cap RxNorm: 034716 1 Capsule(s) PO QD 09/15/201004/12 Inactive loratadine 10 mg Tab RxNorm: 8115622 1 Tablet(s) PO QD 09/15/2010 Inactive Premarin 0.9 mg Tab RxNorm: 326349 1 Tablet(s) PO QD 09/15/201004/12 Inactive Synthroid 112 mcg Tab RxNorm: 576422 1 Tablet(s) PO QD 09/15/2010 Inactive metformin ER 500 mg 24 hr Tab RxNorm: 131000 1 Tablet(s) PO QD 08/2304/12/2011 Inactive Symbicort 160 mcg-4.5 mcg/Actuation Inhalation HFA Aer osol Inhaler RxNorm: 3642366 2 Puff(s) INH BID 09/15/2010 04/12/2011 Inactive diazepam 10 mg Tab RxNorm: 296041 1 Tablet(s) PO BID and PRN 200910/13/2010 Inactive Phentermine 37.5 mg Cap RxNorm: 654288 1 Capsule(s) PO QD 09/02/2010 11/02/2011 Inactive ProAir HFA 90 mcg/Actuation Aerosol Inhaler RxNorm: 792329 2 Puff(s) INH Q4H prn shortness of breath 08/07/2010 No Stop Date Active Premarin 0.9 mg Tab RxNorm: 885853 1 Tablet(s) PO QD 08/07/201009/14 Inactive Loratadine 10 mg Tab RxNorm: 7434749 1 Tablet(s) PO QD 08/07/2010 Inactive Lactulose 10 gram/15 mL Oral Soln RxNorm: 377874 1 Unit Dose PO QD 08/07/2010 02/12/2019 Inactive Zofran 4 mg Tab RxNorm: 983739 1 Tablet(s) PO Q4H prn nausea 2009 No Stop Date Active Gabapentin 800 mg Tab RxNorm: 514483 1 Tablet(s) PO QD 08/07/2010 Inactive Synthroid 112 mcg Tab RxNorm: 667114 1 Tablet(s) PO QD 08/07/2010 Inactive Metformin ER 500 mg 24 hr Tab RxNorm: 792052 1 Tablet(s) PO QD 07/2309/14/2010 Inactive Vitamin D 1,000 unit Tab RxNorm: 572712 1 Tablet(s) PO TID 08/07/2002/12/2019 Inactive Symbicort 160 mcg-4.5 mcg/Actuation Inhalation HFA Aer osol Inhaler RxNorm: 3274558 2 Puff(s) INH BID 08/07/2010 09/14/2010 Inactive Prevacid 30 mg Cap RxNorm: 783894 1 Capsule(s) PO QD 08/07/201009/14 Inactive Metformin ER 500 mg 24 hr Tab RxNorm: 776424 1 Tablet(s) PO QD 06/2308/06/2010 Inactive Vitamin D 1,000 unit Tab RxNorm: 199209 1 Tablet(s) PO TID 07/14/2008/06/2010 Inactive Synthroid 112 mcg Tab RxNorm: 439785 1 Tablet(s) PO QD 07/14/2010 Inactive Lactulose 10 gram/15 mL Oral Soln RxNorm: 952344 1 Unit Dose PO QD 07/14/2010 08/06/2010 Inactive Levaquin 500 mg Tab RxNorm: 385106 1 Tablet(s) PO QD 07/14/201007/27 Inactive Premarin 0.9 mg Tab RxNorm: 487127 1 Tablet(s) PO QD 07/14/201008/06 Inactive ProAir HFA 90 mcg/Actuation Aerosol Inhaler RxNorm: 533837 2 Puff(s) INH Q4H prn shortness of breath 07/14/2010 No Stop Date Active Prevacid 30 mg Cap RxNorm: 002161 1 Capsule(s) PO QD 07/14/201008/06 Inactive Zofran 4 mg Tab RxNorm: 324347 1 Tablet(s) PO Q4H prn nausea 2009 No Stop Date Active Symbicort 160 mcg-4.5 mcg/Actuation Inhalation HFA Aer osol Inhaler RxNorm: 2800665 2 Puff(s) INH BID 07/14/2010 08/06/2010 Inactive Loratadine 10 mg Tab RxNorm: 8517342 1 Tablet(s) PO QD 07/14/2010 Inactive Gabapentin 800 mg Tab RxNorm: 883857 1 Tablet(s) PO QD 07/14/2010 Inactive Metformin ER 500 mg 24 hr Tab RxNorm: 727064 1 Tablet(s) PO 010 07/13/2010 Inactive Diazepam 10 mg Tab RxNorm: 669614 1 Tablet(s) PO BID and PRN 200909/06/2010 Inactive Premarin 0.9 mg Tab RxNorm: 060636 1 Tablet(s) PO QD 06/09/201007/13 Inactive Zofran 4 mg Tab RxNorm: 769353 1 Tablet(s) PO Q4H prn nausea 2009 No Stop Date Active ProAir HFA 90 mcg/Actuation Aerosol Inhaler RxNorm: 581826 2 Puff(s) INH Q4H prn shortness of breath 06/09/2010 No Stop Date Active Gabapentin 800 mg Tab RxNorm: 560462 1 Tablet(s) PO QD 06/09/2010 Inactive Loratadine 10 mg Tab RxNorm: 5183666 1 Tablet(s) PO QD 06/09/2010 Inactive Lactulose 10 gram/15 mL Oral Soln RxNorm: 934630 1 Unit Dose PO QD 06/09/2010 07/13/2010 Inactive Prevacid 30 mg Cap RxNorm: 880741 1 Capsule(s) PO QD 06/09/201007/13 Inactive Synthroid 112 mcg Tab RxNorm: 531985 1 Tablet(s) PO QD 06/09/2010 Inactive Symbicort 160 mcg-4.5 mcg/Actuation Inhalation HFA Aer osol Inhaler RxNorm: 2244607 2 Puff(s) INH BID 06/09/2010 07/13/2010 Inactive Omnicef 300 mg Cap RxNorm: 137737 2 Capsule(s) PO QD 05/07/201005/20 Inactive Metformin 500 mg Tab RxNorm: 330581 1 Tablet(s) PO QD 05/06/201005/22 Inactive ProAir HFA 90 mcg/Actuation Aerosol Inhaler RxNorm: 079828 2 Puff(s) INH Q4H prn shortness of breath 05/06/2010 No Stop Date Active lactulose 10 gram/15 mL Oral Soln RxNorm: 509954 1 Unit Dose PO QD 05/06/2010 06/10/2011 Inactive Loratadine 10 mg Tab RxNorm: 6080629 1 Tablet(s) PO QD 05/06/2010 Inactive Synthroid 112 mcg Tab RxNorm: 016464 1 Tablet(s) PO QD 05/06/2010 Inactive Symbicort 160 mcg-4.5 mcg/Actuation Inhalation HFA Aer osol Inhaler RxNorm: 0586058 2 Puff(s) INH BID 05/06/2010 06/08/2010 Inactive Gabapentin 800 mg Tab RxNorm: 646415 1 Tablet(s) PO QD 05/06/2010 Inactive 16.2 mg-0.1037 mg-0.0194 mg Tab RxNorm: 0680529 2 Tablet(s) PO TID PRN for gas and cramping 05/06/2010 05/12/2010 Inactive Zofran 4 mg Tab RxNorm: 275437 1 Tablet(s) PO Q4H prn nausea 200904/13/2010 Inactive MS Contin 60 mg Tab RxNorm: 590233 3 Tablet(s) PO BID 04/09/201004/22 Inactive Soma 350 mg Tab RxNorm: 249421 2 Tablet(s) PO TID 04/09/2010 05/08/20 10 Inactive Symbicort 160 mcg-4.5 mcg/Actuation Inhalation HFA Aer osol Inhaler RxNorm: 8703982 2 Puff(s) INH BID 04/08/2010 05/05/2010 Inactive Doxycycline 100 mg Cap RxNorm: 6435763 1 Capsule(s) PO BID 04/08/20 10 04/17/2010 Inactive Triamterene-Hydrochlorothiazide 37.5 mg-25 mg Cap RxNorm: 19 8316 1 Capsule(s) PO QAM 04/08/2010 09/04/2010 Inactive fluoxetine 40 mg Cap RxNorm: 336480 1 Capsule(s) PO QAM 04/08/2010 Inactive Morphine SR 120 mg multiphase 24 hr Cap RxNorm: 925051 1 Capsul e(s) PO 03/11/2010 04/07/2010 Inactive Endocet 10 mg-325 mg Tab RxNorm: 3886630 1-2 Tablet(s) PO Q4H OR N PAIN 03/11/2010 04/09/2010 Inactive Savella 100 mg Tab RxNorm: 138805 1 Tablet(s) PO BID 03/10/201004/09 Inactive Soma 350 mg Tab RxNorm: 948598 1 Tablet(s) PO TID prn spasm 010 04/09/2010 Inactive Savella 100 mg Tab RxNorm: 679005 1 Tablet(s) PO BID 02/03/201004/09 Inactive Aspirin 81 mg Tab RxNorm: 055487 1 Tablet(s) PO QD No Start Date Active Zyrtec 10 mg Tab RxNorm: 3212295 1 Tablet(s) PO QD No Start Date Active One Touch Ultra Test Strips RxNorm: Misc test at least t wice daily. No Start Date Active coenzyme Q10 200 mg capsule RxNorm: 638318 1 Capsule(s) PO QD No Star t Date Active One Touch Ultra Test Strips RxNorm: InVt BID Zainab t blood sugar at least twice daily. No Start Date 11/10/2010 Inactive Gabapentin 800 mg Tab RxNorm: 836394 1 Tablet(s) PO QD No Start Date 05/05/2010 Inactive Abilify 5 mg tablet RxNorm: 395411 1 Tablet(s) PO QD No Start Date Inactive Chantix 1 mg Tab RxNorm: 825417 1 Tablet(s) PO BID No Start Date 10/22 Inactive Ozempic 0.25 mg or 0.5 mg (2 mg/1.5 mL) subcutaneous p en injector RxNorm: 0065968 .25 Milligram(s) SQ QW No Start Date 07/04/2019 Inactive lancets 28 gauge RxNorm: Miscellaneous As needed for blo od glucose sticks No Start Date 08/23/2013 Inactive potassium chloride ER 20 mEq tablet,extended release RxNorm: 777052 2 Tablet(s) PO QD No Start Date 09/26/2018 Inactive Ventolin HFA 90 mcg/actuation Aerosol Inhaler RxNorm: 634913 2 Puff(s) INH Q4H prn No Start Date 01/17/2012 Inactive potassium chloride ER 20 mEq tablet,extended release RxNorm: 326447 2 Tablet(s) PO QD No Start Date 10/19/2018 Inactive Januvia 100 mg tablet RxNorm: 188458 1 Tablet(s) PO QD No Start Date 09/10/2015 Inactive Medrol (Aníbal) 4 mg Tabs in a Dose Pack RxNorm: 873399 Tablet(s) PO N o Start Date 08/09/2011 Inactive as directed Zithromax Z-Aníbal 250 mg Tab RxNorm: 967229 Tablet(s) PO No Start Date 01/25/2012 Inactive as directed vitamin B6-vitamin E-magnesium tablet RxNorm: 1 Tablet(s ) PO QHS with INH No Start Date 03/30/2018 Inactive prednisone 20 mg Tab RxNorm: 596386 1 Tablet(s) PO TID for 1wk then 1 po BID for 1wk No Start Date 01/25/2012 Inactive furosemide 40 mg tablet RxNorm: 827681 1 Tablet(s) PO QAM No Start Date 10/09/2018 Inactive Vitamin D3 1000 units Capsule RxNorm: 1 Capsule(s) PO TID No S tart Date 03/19/2015 Inactive Zofran 4 mg Tab RxNorm: 038765 1 Tablet(s) PO Q4H prn nausea No Sta rt Date 04/13/2010 Inactive Premarin 0.625 mg/g Vaginal Cream RxNorm: 065034 1 Gram (s) VAG QHS 3 times a week No Start Date 09/22/2017 Inactive oxycodone 10 mg tablet RxNorm: 6683141 1-2 Tablet(s) PO QID as n eeded for pain No Start Date 11/04/2015 Inactive Nicoderm CQ 21 mg/24 hr daily Patch RxNorm: 361340 1 Applicatio n TD QD No Start Date 08/05/2015 Inactive Topamax 50 mg tablet RxNorm: 033662 1/2 Tablet(s) PO QH S for 1wk then 1 po q HS for 1wk then 2 po q HS No Start Date 06/27/2012 Inactive Chantix Starting Month Aníbal 0.5 mg (11)-1 mg (3x14) Tab s in a Dose Pack RxNorm: 693211 Tablet(s) PO as directed No Start Date 03/01/2011 Inactive Trulicity 0.75 mg/0.5 mL subcutaneous pen injector RxNorm: 1 878034 Milliliter(s) SQ No Start Date 07/04/2019 Inactive Medrol (Aníbal) 4 mg Tabs in a Dose Pack RxNorm: 774773 Tablet(s) PO N o Start Date 01/25/2012 Inactive as directed Duragesic 100 mcg/hr Transderm Patch RxNorm: 206497 2 A pplication TD Q48H for pain No Start Date 09/05/2013 Inactive Premarin 0.9 mg Tab RxNorm: 656846 1 Tablet(s) PO QD No Start Date Inactive Zithromax Z-Aníbal 250 mg Tab RxNorm: 671384 Tablet(s) PO as direc chinmay No Start Date 01/25/2012 Inactive ondansetron 8 mg disintegrating tablet RxNorm: 110460 1 Tablet(s) PO Q6H as needed No Start Date 10/10/2018 Inactive oxycodone 15 mg tablet RxNorm: 7322562 1 Tablet(s) PO QID as nee ded for pain No Start Date 03/05/2019 Inactive ProAir HFA 90 mcg/Actuation Aerosol Inhaler RxNorm: 266205 2 Puff(s) INH Q4H prn for wheezing or shortness of breath No Start Date 12/21/2011 Inactive pravastatin 40 mg tablet RxNorm: 202752 1/2 Tablet(s) PO QOD No Sta rt Date 04/09/2015 Inactive ipratropium-albuterol 0.5 mg-3 mg(2.5 mg base)/3 mL ne bulization soln RxNorm: 3569053 1 Unit Dose INH Q4H as needed No Start Date 09/09/2016 Inactive furosemide 40 mg tablet RxNorm: 576133 1 Tablet(s) PO QAM as ne eded No Start Date 09/24/2019 Inactive Vitamin D2 oral RxNorm: 4018 oral No Start Date 03/18/2015 Inacti ve pravastatin 40 mg tablet RxNorm: 930511 1/2 Tablet(s) PO QD No Star t Date 04/09/2015 Inactive ondansetron HCl 4 mg tablet RxNorm: 646606 1 Tablet(s) PO Q4H as needed for nausea and vomiting No Start Date 04/07/2016 Inactive furosemide 40 mg tablet RxNorm: 328269 2 Tablet(s) PO QAM No Start Date 09/26/2018 Inactive gabapentin 800 mg tablet RxNorm: 350311 1/2 Tablet(s) PO BID No Sta rt Date 06/21/2017 Inactive gabapentin 800 mg tablet RxNorm: 511325 1/2 Tablet(s) PO BID No Sta rt Date 07/05/2017 Inactive ProAir HFA 90 mcg/Actuation Aerosol Inhaler RxNorm: 866393 2 Puff(s) INH Q4H prn shortness of breath No Start Date 05/05/2010 Inactive scopolamine 1 mg over 3 days transdermal patch RxNorm: 34366 2 1 Application TD behind ear. Take off after three days No Start Date 10/10/2018 Inactive Metformin 500 mg Tab RxNorm: 576381 1 Tablet(s) PO QD No Start Date 0 05/05/2010 Inactive MS Contin 200 mg Tab RxNorm: 966551 1 Tablet(s) PO BID No Start Date 08/20/2011 Inactive Belladonna-Phenobarbital 48 mg tablet,extended release RxNor m: 2 Tablet(s) PO TID No Start Date 06/04/2016 Inactive Synthroid 112 mcg Tab RxNorm: 888347 1 Tablet(s) PO QD No Start Date 05/05/2010 Inactive Zegerid 40 mg-1.1 gram Cap RxNorm: 593712 1 Capsule(s) PO QD No Sta rt Date 01/25/2012 Inactive Premarin 0.625 mg/g Vaginal Cream RxNorm: 648978 VAG In sert 1gm vaginally at bedtime 3 times weekly No Start Date 01/17/2011 Inactive potassium chloride ER 20 mEq tablet,extended release RxNorm: 303975 1 Tablet(s) PO QD No Start Date 04/24/2019 Inactive methocarbamol 750 mg tablet RxNorm: 158174 2 Tablet(s) PO TID as needed for muscle spasm No Start Date 07/08/2014 Inactive Biaxin XL Aníbal 500 mg 24 hr Tab RxNorm: 814473 Tablet(s) PO as d irected No Start Date 04/24/2013 Inactive Vitamin D3 1,000 unit tablet RxNorm: 913775 3 Tablet(s) PO QD No St art Date 06/01/2017 Inactive Morphine SR 120 mg multiphase 24 hr Cap RxNorm: 725485 1 Capsul e(s) PO BID No Start Date 04/09/2010 Inactive Silvadene 1 % topical cream RxNorm: 442146 1 Application TOP BI D to burn area No Start Date 01/31/2017 Inactive Prednisone 20 mg Tab RxNorm: 827091 1 Tablet(s) PO TID for 3days then BID for 4days No Start Date 01/25/2012 Inactive gabapentin 600 mg tablet RxNorm: 115690 1 Tablet(s) PO BID No Start Date 01/21/2015 Inactive topiramate 50 mg tablet RxNorm: 258360 1 Tablet(s) PO QHS No Start Date 03/30/2018 Inactive Januvia 100 mg tablet RxNorm: 942558 1/2 Tablet(s) PO QD No Start D ate 12/25/2015 Inactive Diazepam 10 mg Tab RxNorm: 700321 1 Tablet(s) PO BID and PRN No Sta rt Date 06/08/2010 Inactive Medication Administered No Medication Administered data Immunizations Vaccine Codes Date Status Influenza CVX: 141 09/28/2012 Pneumovax Unknown 09/28/2012 Influenza (Adult) CVX: 141 09/02/2010 Results No Results data Procedures Procedure Codes Date THER/PROPH/DIAG INJ SC/IM CPT-4: 11566 07/10/2019 METHYLPREDNISOLONE INJECTION CPT-4: J2930 07/10/2019 URINALYSIS NONAUTO W/O SCOPE CPT-4: 55179 09/06/2018 URINE CULTURE/ COLONY COUNT CPT-4: 95314 09/06/2018 DRAIN/INJECT JOINT/BURSA CPT-4: 63422 04/29/2017 TRIAMCINOLONE ACET INJ NOS CPT-4: J3301 04/29/2017 DEXAMETHASONE SODIUM PHOS CPT-4: J1100 04/29/2017 INFLUENZA ASSAY W/OPTIC CPT-4: 13943 12/01/2016 RESPIRATORY CULTURE & STAIN CPT-4: 00456 07/09/2016 TB INTRADERMAL TEST CPT-4: 76160 04/21/2016 DRAIN/INJECT JOINT/BURSA CPT-4: 61318 11/07/2013 METHYLPREDNISOLONE 40 MG INJ CPT-4: J1030 11/07/2013 TRIAMCINOLONE ACET INJ NOS CPT-4: J3301 11/07/2013 DRAIN/INJECT JOINT/BURSA CPT-4: 81092 08/08/2013 METHYLPREDNISOLONE 40 MG INJ CPT-4: J1030 08/08/2013 TRIAMCINOLONE ACET INJ NOS CPT-4: J3301 08/08/2013 FLU VACCINE 3 YRS & > IM UP 64 CPT-4: 70230 2 PNEUMOCOCCAL VACC 23 ADITYA IM CPT-4: 41431 09/28/2012 IMMUNIZATION ADMIN CPT-4: 12222 09/28/2012 IMMUNIZATION ADMIN EACH ADD CPT-4: 40988 09/28/2012 FLU VACCINE 3 YRS & > IM UP 64 CPT-4: 74860 0 IMMUNIZATION ADMIN CPT-4: 25396 09/02/2010 METHYLPREDNISOLONE INJECTION CPT-4: J2930 05/07/2010 THER/PROPH/DIAG INJ SC/IM CPT-4: 39156 05/07/2010 Vital Signs Date Vital 11/29/2019 Blood [...] 1: 122/78 Code: 8480-6 BMI: 29.5 Code: 91764-9 Heart Rate 1: 76 bpm Height: 5'4" Respiratory Rate: 20 bpm SpO2: 96% Tempera ture: 37.0 (C) / 98.6 (F) Weight: 172 lbs 01/25/2019 Blood Pressure 1: 132/80 Code: 8480-6 BMI: 29.7 Code: 87207-1 Heart Rate 1: 84 bpm Height: 5'4" Respiratory Rate: 22 bpm SpO2: 98% Tempera ture: 36.9 (C) / 98.4 (F) Weight: 173 lbs 01/03/2019 Blood Pressure 1: 116/70 Code: 8480-6 BMI: 29.5 Code: 74156-1 Heart Rate 1: 92 bpm Height: 5'4" Respiratory Rate: 24 bpm SpO2: 98% Tempera ture: 37.2 (C) / 98.9 (F) Weight: 172 lbs 11/21/2018 Blood Pressure 1: 146/82 Code: 8480-6 BMI: 28.2 Code: 86461-8 Heart Rate 1: 88 bpm Height: 5'4" Respiratory Rate: 22 bpm SpO2: 97% Tempera ture: 36.9 (C) / 98.4 (F) Weight: 164 lbs 10/27/2018 Blood Pressure 1: 122/70 Code: 8480-6 BMI: 27.6 Code: 99480-1 Heart Rate 1: 88 bpm Height: 5'4" Respiratory Rate: 20 bpm SpO2: 96% Tempera ture: 36.8 (C) / 98.3 (F) Weight: 161 lbs 10/18/2018 Blood Pressure 1: 126/70 Code: 8480-6 BMI: 28.3 Code: 32041-3 Heart Rate 1: 76 bpm Height: 5'4" Respiratory Rate: 20 bpm SpO2: 95% Tempera ture: 37.0 (C) / 98.6 (F) Weight: 165 lbs 09/27/2018 Blood Pressure 1: 124/78 Code: 8480-6 BMI: 27.1 Code: 49465-9 Heart Rate 1: 88 bpm Height: 5'4" Respiratory Rate: 20 bpm SpO2: 98% Tempera ture: 36.4 (C) / 97.6 (F) Weight: 158 lbs 09/14/2018 Blood Pressure 1: 140/72 Code: 8480-6 BMI: 26.1 Code: 74140-3 Heart Rate 1: 100 bpm Height: 5'4" Respiratory Rate: 20 bpm SpO2: 97% Tempera ture: 36.9 (C) / 98.4 (F) Weight: 152 lbs 09/06/2018 Blood Pressure 1: 156/82 Code: 8480-6 BMI: 26.3 Code: 83608-8 Heart Rate 1: 100 bpm Height: 5'4" Respiratory Rate: 28 bpm SpO2: 95% Tempera ture: 37.2 (C) / 98.9 (F) Weight: 153 lbs 08/16/2018 Blood Pressure 1: 130/78 Code: 8480-6 Heart Rate 1: 87 bpm Respiratory Rate: 24 bpm SpO2: 94% Temperature: 36.9 (C) / 98.4 (F) We ight: 147 lbs 8 oz 07/07/2018 Blood Pressure 1: 116/78 Code: 8480-6 BMI: 22.7 Code: 52663-3 Heart Rate 1: 88 bpm Height: 5'4" Respiratory Rate: 22 bpm SpO2: 98% Tempera ture: 36.5 (C) / 97.7 (F) Weight: 132 lbs 05/31/2018 Blood Pressure 1: 128/78 Code: 8480-6 BMI: 22.3 Code: 18735-9 Heart Rate 1: 92 bpm Height: 5'4" Respiratory Rate: 26 bpm SpO2: 94% Tempera ture: 36.7 (C) / 98.1 (F) Weight: 130 lbs 03/31/2018 Blood Pressure 1: 136/78 Code: 8480-6 BMI: 21.5 Code: 42231-8 Heart Rate 1: 76 bpm Height: 5'4" Respiratory Rate: 24 bpm SpO2: 95% Tempera ture: 36.8 (C) / 98.3 (F) Weight: 125 lbs 01/26/2018 Blood Pressure 1: 142/64 Code: 8480-6 BMI: 20.6 Code: 14589-2 Heart Rate 1: 90 bpm Height: 5'4" Respiratory Rate: 24 bpm SpO2: 92% Tempera ture: 36.3 (C) / 97.3 (F) Weight: 120 lbs 10/26/2017 Blood Pressure 1: 124/70 Code: 8480-6 BMI: 20.3 Code: 48237-7 Heart Rate 1: 76 bpm Height: 5'4" Respiratory Rate: 22 bpm SpO2: 94% Tempera ture: 36.7 (C) / 98.1 (F) Weight: 118 lbs 09/23/2017 Blood Pressure 1: 106/70 Code: 8480-6 BMI: 19.2 Code: 33902-2 Heart Rate 1: 76 bpm Height: 5'4" Respiratory Rate: 20 bpm SpO2: 94% Tempera ture: 36.8 (C) / 98.3 (F) Weight: 112 lbs 08/12/2017 Blood Pressure 1: 116/68 Code: 8480-6 BMI: 20.1 Code: 10378-0 Heart Rate 1: 80 bpm Height: 5'4" Respiratory Rate: 22 bpm SpO2: 95% Tempera ture: 36.8 (C) / 98.2 (F) Weight: 117 lbs 07/06/2017 Blood Pressure 1: 136/78 Code: 8480-6 BMI: 20.6 Code: 94030-8 Heart Rate 1: 76 bpm Height: 5'4" Respiratory Rate: 24 bpm SpO2: 96% Tempera ture: 36.8 (C) / 98.2 (F) Weight: 120 lbs 06/02/2017 Blood Pressure 1: 112/70 Code: 8480-6 Heart Rate 1: 92 bpm Height: 5'4" Respiratory Rate: 24 bpm SpO2: 95% Temperature: 37.0 (C) / 98.6 (F) Weight: 04/29/2017 Blood Pressure 1: 94/52 Code: 8480-6 BMI: 19.6 C ode: 99167-6 Heart Rate 1: 84 bpm Height: 5'4" [...] 92/58 Code: 8480-6 BMI: 19.2 C ode: 33121-5 Heart Rate 1: 84 bpm Height: 5'4" Respiratory Rate: 26 bpm SpO2: 95% Tempera ture: 36.7 (C) / 98.0 (F) Weight: 112 lbs 12/01/2016 Blood Pressure 1: 114/70 Code: 8480-6 BMI: 19.2 Code: 79464-8 Heart Rate 1: 96 bpm Height: 5'4" Respiratory Rate: 28 bpm SpO2: 93% Tempera ture: 38.3 (C) / 101.0 (F) Weight: 112 lbs 10/27/2016 Blood Pressure 1: 126/66 Code: 8480-6 BMI: 19.6 Code: 95952-7 Heart Rate 1: 92 bpm Height: 5'4" Respiratory Rate: 28 bpm SpO2: 90% Tempera ture: 36.8 (C) / 98.3 (F) Weight: 114 lbs 09/09/2016 Blood Pressure 1: 126/74 Code: 8480-6 Heart Rate 1: 104 bpm Height: 5'4" Respiratory Rate: 32 bpm SpO2: 88% Temperature: 37 .2 (C) / 99.0 (F) 08/26/2016 Blood Pressure 1: 134/82 Code: 8480-6 BMI: 22.0 Code: 16752-9 Heart Rate 1: 84 bpm Height: 5'4" Respiratory Rate: 24 bpm SpO2: 94% Tempera ture: 36.8 (C) / 98.3 (F) Weight: 128 lbs 05/21/2016 Blood Pressure 1: 142/80 Code: 8480-6 BMI: 21.6 Code: 46240-5 Heart Rate 1: 104 bpm Height: 5'4" Respiratory Rate: 22 bpm SpO2: 93% Tempera ture: 36.0 (C) / 96.8 (F) Weight: 126 lbs 03/25/2016 Blood Pressure 1: 126/62 Code: 8480-6 Heart Rate 1: 88 bpm Respiratory Rate: 20 bpm SpO2: 92% Temperature: 36.8 (C) / 98.3 (F) We ight: 130 lbs 01/23/2016 Blood Pressure 1: 146/82 Code: 8480-6 BMI: 24.1 Code: 41057-2 Heart Rate 1: 92 bpm Height: 5'3" Respiratory Rate: 22 bpm Temperature: 37 .1 (C) / 98.8 (F) Weight: 136 lbs 12/26/2015 Blood Pressure 1: 142/78 Code: 8480-6 BMI: 24.6 Code: 12251-6 Heart Rate 1: 78 bpm Height: 5'3" Respiratory Rate: 20 bpm Temperature: 36 .7 (C) / 98.1 (F) Weight: 139 lbs 12/03/2015 Blood Pressure 1: 126/60 Code: 8480-6 BMI: 24.6 Code: 71105-6 Heart Rate 1: 100 bpm Height: 5'3" Respiratory Rate: 28 bpm Temperature: 37 .6 (C) / 99.6 (F) Weight: 139 lbs 09/10/2015 Blood Pressure 1: 124/64 Code: 8480-6 BMI: 23.7 Code: 37482-6 Heart Rate 1: 88 bpm Height: 5'3" Respiratory Rate: 24 bpm SpO2: 95% Tempera ture: 36.4 (C) / 97.6 (F) Weight: 134 lbs 08/06/2015 Blood Pressure 1: 114/76 Code: 8480-6 BMI: 23.2 Code: 26593-1 Heart Rate 1: 88 bpm Height: 5'3" Respiratory Rate: 22 bpm Temperature: 36 .6 (C) / 97.9 (F) Weight: 131 lbs 07/18/2015 Blood Pressure 1: 144/78 Code: 8480-6 BMI: 23.7 Code: 01752-3 Heart Rate 1: 84 bpm Height: 5'3" Respiratory Rate: 20 bpm Temperature: 37 .2 (C) / 99.0 (F) Weight: 134 lbs 04/10/2015 Blood Pressure 1: 110/64 Code: 8480-6 Heart Rate 1: 80 bpm Height: Respiratory Rate: 20 bpm Temperature: 37.1 (C) / 98.8 (F) Weight: 03/05/2015 Blood Pressure 1: 136/80 Code: 8480-6 BMI: 23.9 Code: 68375-5 Heart Rate 1: 76 bpm Height: 5'3" Respiratory Rate: 24 bpm Temperature: 37 .0 (C) / 98.6 (F) Weight: 135 lbs 01/30/2015 Blood Pressure 1: 142/80 Code: 8480-6 BMI: 23.0 Code: 75268-0 Heart Rate 1: 96 bpm Height: 5'3" Respiratory Rate: 22 bpm Temperature: 36 .2 (C) / 97.2 (F) Weight: 130 lbs 01/02/2015 Blood Pressure 1: 124/70 Code: 8480-6 BMI: 23.4 Code: 57199-8 Heart Rate 1: 84 bpm Height: 5'3" Respiratory Rate: 24 bpm SpO2: 95% Tempera ture: 36.9 (C) / 98.5 (F) Weight: 132 lbs 10/03/2014 Blood Pressure 1: 106/68 Code: 8480-6 BMI: 22.5 Code: 74407-4 Heart Rate 1: 88 bpm Height: 5'3" Respiratory Rate: 24 bpm Temperature: 37 .0 (C) / 98.6 (F) Weight: 127 lbs 08/27/2014 Blood Pressure 1: 124/68 Code: 8480-6 BMI: 21.1 Code: 91178-4 Heart Rate 1: 88 bpm Height: 5'3" [...] 1: 120/70 Code: 8480-6 BMI: 19.2 Code: 63986-3 Heart Rate 1: 70 bpm Height: 5'4" Respiratory Rate: 20 bpm Temperature: 36 .9 (C) / 98.4 (F) Weight: 112 lbs 06/28/2013 Blood Pressure 1: 102/68 Code: 8480-6 BMI: 19.6 Code: 58366-1 Heart Rate 1: 76 bpm Height: 5'4" Respiratory Rate: 20 bpm Temperature: 36 .8 (C) / 98.2 (F) Weight: 114 lbs 05/31/2013 Blood Pressure 1: 106/70 Code: 8480-6 BMI: 18.9 Code: 39747-6 Heart Rate 1: 100 bpm Height: 5'4" Respiratory Rate: 20 bpm Temperature: 36 .4 (C) / 97.6 (F) Weight: 110 lbs 05/03/2013 Blood Pressure 1: 126/70 Code: 8480-6 BMI: 19.1 Code: 62982-1 Heart Rate 1: 88 bpm Height: 5'4" Respiratory Rate: 20 bpm Temperature: 37 .1 (C) / 98.8 (F) Weight: 111 lbs 04/25/2013 Blood Pressure 1: 114/68 Code: 8480-6 BMI: 19.4 Code: 24269-5 Heart Rate 1: 92 bpm Height: 5'4" Respiratory Rate: 24 bpm SpO2: 96% Tempera ture: 37.7 (C) / 99.8 (F) Weight: 113 lbs 03/08/2013 Blood Pressure 1: 94/68 Code: 8480-6 BMI: 21.3 C ode: 79269-1 Heart Rate 1: 88 bpm Height: 5'4" Respiratory Rate: 24 bpm Temperature: 37 .0 (C) / 98.6 (F) Weight: 124 lbs 02/07/2013 Blood Pressure 1: 106/64 Code: 8480-6 BMI: 21.8 Code: 98991-6 Heart Rate 1: 84 bpm Height: 5'4" Respiratory Rate: 22 bpm Temperature: 36 .8 (C) / 98.2 (F) Weight: 127 lbs 01/10/2013 Blood Pressure 1: 122/68 Code: 8480-6 BMI: 21.6 Code: 94583-6 Heart Rate 1: 94 bpm Height: 5'4" SpO2: 94% Temperature: 36.7 (C) / 98.1 (F) Weight: 126 lbs 09/28/2012 Blood Pressure 1: 124/78 Code: 8480-6 BMI: 24.9 Code: 24829-4 Heart Rate 1: 92 bpm Height: 5'4" Respiratory Rate: 20 bpm Temperature: 36 .7 (C) / 98.1 (F) Weight: 145 lbs 06/28/2012 Blood Pressure 1: 134/80 Code: 8480-6 BMI: 24.9 Code: 95075-5 Heart Rate 1: 76 bpm Height: 5'4" Respiratory Rate: 20 bpm Temperature: 36 .8 (C) / 98.2 (F) Weight: 145 lbs 05/03/2012 Blood Pressure 1: 108/62 Code: 8480-6 BMI: 25.6 Code: 06080-1 Heart Rate 1: 88 bpm Height: 5'4" Temperature: 36.2 (C) / 97.2 (F) Weight: 149 lbs 03/01/2012 Blood Pressure 1: 124/66 Code: 8480-6 BMI: 25.1 Code: 83294-1 Heart Rate 1: 76 bpm Height: 5'4" Respiratory Rate: 20 bpm Temperature: 36 .6 (C) / 97.9 (F) Weight: 146 lbs 01/26/2012 Blood Pressure 1: 118/82 Code: 8480-6 BMI: 25.1 Code: 06514-1 Heart Rate 1: 74 bpm Height: 5'4" Temperature: 36.8 (C) / 98.2 (F) Weight: 146 lbs 11/03/2011 Blood Pressure 1: 126/80 Code: 8480-6 BMI: 27.3 Code: 38711-1 Heart Rate 1: 72 bpm Height: 5'4" [...] prozac Encounters Encounter Performer Location Codes Date ([id number]) OFFICE/OUTPATIENT VISIT EST Diagnosis: Urticaria[ICD10: L50.9] Diagnosis: Allergy to morphine[ICD10: Z88.5] Diagnosis: Chronic pain syndrome[ICD10: G89.4] Vika RENTERIA DO [facility] CPT-4: 00393 02/13/2020 ([id number]) OFFICE/OUTPATIENT VISIT EST Diagnosis: Chronic pain syndrome[ICD10: G89.4] Diagnosis: Localized edema[ICD10: R60.0] Diagnosis: Chronic obstructive pulmonary disease, unspecified[ICD10: J44.9] Diagnosis: Other fatigue[ICD10: R53.83] Diagnosis: Muscle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 [address] [place], [place] [id number] FOLLOW UP 05/07/2010 Patient Education: Patient Medication Summary Completed 05/07/2010 Appointment: Vika Renteria WPtel: [address] [place], [place] [id number] ACUTE ILLNESS 04/08/2010 Patient Education: Patient Medication Summary Completed 04/08/2010 Referral: Kyle Billings WPtel: [address] [facility] [place] Referral Completed Referral: Jaylan Matute WPtel: [address] [place] [address] [address] [id number] [place] Referral Initiated Referral: Kyle Billings WPtel: [address] [place] [address] [place] Referral Appointment Requested Instructions Comment . [...] prn breakthrough pain . Discussed that some Chaves's Bees produc ts are petroleum free If [...]
--- OUTSIDE RECORDS SUMMARY | 2020-04-24 22:45 | XMS REPORT | CCD ---
Author Author Yana Renteria D.O. Organization 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 Name Role Phone Vika Renteria D.O., PP Unavailable CCM Unavailable Summary Purpose Interface Exchange Insurance Providers Payer name Policy type / Coverage type Covered constitution party ID Effective Begin Date Effective End Date [employer] [facility] Medicaid [id number] U nknown Family History Family History data not found Social History Social History Element Codes Description Effective Dates Marital status Unknown 06/28/[address]: [id number] Currently smokes tobacco 05/2013 Allergies, Adverse Reactions, [...] Start Date Stop Date Status Fill Instructions prednisone 20 mg tablet RxNorm: 886660 1 Tablet(s) Oral two yumi es a day 02/13/2020 02/20/2020 Active oxycodone 30 mg tablet RxNorm: 7205344 1 Tablet(s) Oral four times a day replaces MS Contin 02/13/2020 03/14/2020 Active levothyroxine 25 mcg tablet RxNorm: 284474 TAKE ONE TAB LET BY MOUTH EVERY MORNING 02/09/2020 No Stop Date Active MS Contin 200 mg tablet,extended release RxNorm: 406537 1 Tablet(s) Oral two times a day 02/01/2020 03/01/2020 Active cyclobenzaprine 10 mg tablet RxNorm: 904747 TAKE ONE TA BLET BY MOUTH THREE TIMES A DAY NEEDED 01/31/2020 No Stop Date Active Premarin 0.45 mg tablet RxNorm: 752570 TAKE ONE TABLET BY MOUTH DAILY 01/31/2020 No Stop Date Active metformin 500 mg tablet RxNorm: 680886 1 Tablet(s) Oral QD 01/31/20 20 04/29/2020 Active gabapentin 300 mg capsule RxNorm: 081302 TAKE ONE CAPSULE BY [facility] TWICE A DAY 01/16/2020 No Stop Date Active potassium chloride ER 20 mEq tablet,extended release RxNorm: 607339 TAKE ONE TABLET BY MOUTH DAILY 01/08/2020 07/05/2020 Active ProAir HFA 90 mcg/actuation aerosol inhaler RxNorm: 177126 INHALE ONE PUFF BY MOUTH EVERY 4 HOURS FOR WHEEZING OR FOR SHORTNESS OF BREATH 01/04/2020 No Stop Date Active metformin 500 mg tablet RxNorm: 707506 1 Tablet(s) Oral QD 01/04/20 20 01/30/2020 Inactive MS Contin 200 mg tablet,extended release RxNorm: 735917 1 Tablet(s) Oral two times a day 01/02/2020 01/31/2020 Inactive Pulmicort 1 mg/2 mL suspension for nebulization RxNorm: 6168 19 USE ONE VIAL VIA NEBULIZER BY MOUTH TWICE A DAY 12/21/2019 No Stop Date Active furosemide 40 mg tablet RxNorm: 182556 TAKE ONE TABLET BY MOUTH EVERY MORNING NEEDED 12/20/2019 No Stop Date Active levothyroxine 25 mcg tablet RxNorm: 417313 TAKE ONE TAB LET BY MOUTH EVERY MORNING 12/20/2019 02/08/2020 Inactive MS Contin 200 mg tablet,extended release RxNorm: 030858 1 Tablet(s) Oral two times a day 12/05/2019 01/01/2020 Inactive Medrol (Aníbal) 4 mg tablets in a dose pack RxNorm: 107911 6 Tablet(s) Oral QD --then as directed 11/30/2019 12/05/2019 Inactive MS Contin 200 mg tablet,extended release RxNorm: 161648 1 Tablet(s) Oral two times a day 11/29/2019 12/04/2019 Inactive cyclobenzaprine 10 mg tablet RxNorm: 316462 TAKE ONE TA BLET BY MOUTH THREE TIMES A DAY NEEDED 11/21/2019 01/30/2020 Inactive MS Contin 200 mg tablet,extended release RxNorm: 684842 1 Tablet(s) Oral two times a day replaces 100mg dose 11/03/2019 11/02/2019 Inactive MS Contin 200 mg tablet,extended release RxNorm: 649200 1 Tablet(s) Oral two times a day replaces 100mg dose 11/03/2019 11/29/2019 Inactive ferrous sulfate 325 mg (65 mg iron) tablet RxNorm: 386519 1 Tab let(s) Oral QD 10/30/2019 No Stop Date Active MS Contin 100 mg tablet,extended release RxNorm: 891566 1 Table t(s) Oral QD 10/30/2019 10/29/2019 Inactive MS Contin 100 mg tablet,extended release RxNorm: 293200 1 Table t(s) Oral QD 10/30/2019 11/02/2019 Inactive Relistor 150 mg tablet RxNorm: 8360611 TAKE THREE TABLETS BY BENOIT TH DAILY 10/25/2019 No Stop Date Active pantoprazole 40 mg tablet,delayed release RxNorm: 890312 1 Tabl et(s) Oral QD 10/25/2019 No Stop Date Active Minipress 2 mg capsule RxNorm: 140193 1 Capsule(s) Oral QAM and 3 at bedtime 10/25/2019 No Stop Date Active Lancets, Super Thin RxNorm: 1 Unit Dose Miscellaneous QD 9 11/27/2020 Active Cymbalta 60 mg capsule,delayed release RxNorm: 932165 1 Capsule (s) Oral QAM 10/25/2019 No Stop Date Active Cymbalta 30 mg capsule,delayed release RxNorm: 919393 1 Capsule (s) Oral QAM 10/25/2019 No Stop Date Active oxycodone 15 mg tablet RxNorm: 1680925 1 Tablet(s) Oral four times a day as needed for pain 10/25/2019 11/28/2019 Inactive metformin 500 mg tablet RxNorm: 559479 1 Tablet(s) Oral QD 10/25/20 19 01/03/2020 Inactive levothyroxine 25 mcg tablet RxNorm: 662214 1 Tablet(s) Oral QAM 02/201912/19/2019 Inactive levothyroxine 25 mcg tablet RxNorm: 923448 1 Tablet(s) Oral QAM 02/201910/24/2019 Inactive MS Contin 100 mg tablet,extended release RxNorm: 806444 1 Tablet(s) Oral two times a day replaces fentanyl 10/25/2019 10/25/2019 Inactive Premarin 0.45 mg tablet RxNorm: 828930 TAKE ONE TABLET BY MOUTH DAILY 10/24/2019 01/30/2020 Inactive Duragesic 100 mcg/hr transdermal patch RxNorm: 603091 2 Application TD Q48H for pain 10/18/2019 10/24/2019 Inactive gabapentin 300 mg capsule RxNorm: 792057 TAKE ONE CAPSULE BY MO UTH TWICE A DAY 10/16/2019 01/15/2020 Inactive cyclobenzaprine 10 mg tablet RxNorm: 413771 TAKE ONE TA BLET BY MOUTH THREE TIMES A DAY NEEDED 09/27/2019 11/20/2019 Inactive Relistor 150 mg tablet RxNorm: 8267569 TAKE THREE TABLETS BY BENOIT TH DAILY 09/25/2019 10/24/2019 Inactive ProAir HFA 90 mcg/actuation aerosol inhaler RxNorm: 792178 INHALE ONE PUFF BY MOUTH EVERY 4 HOURS FOR WHEEZING OR FOR SHORTNESS OF BREATH 09/25/2019 01/03/2020 Inactive furosemide 40 mg tablet RxNorm: 294096 1 Tablet(s) Oral QAM as needed 09/25/2019 09/25/2019 Inactive oxycodone 15 mg tablet RxNorm: 7762900 1 Tablet(s) PO QID as nee ded for pain 09/21/2019 10/24/2019 Inactive Duragesic 100 mcg/hr transdermal patch RxNorm: 809225 2 Application TD Q48H for pain 09/19/2019 10/17/2019 Inactive Daliresp 500 mcg tablet RxNorm: 2233784 1 Tablet(s) Oral QD 019 03/08/2020 Active Relistor 150 mg tablet RxNorm: 9155281 TAKE THREE TABLETS BY BENOIT TH DAILY 07/25/2019 07/30/2019 Inactive cyclobenzaprine 10 mg tablet RxNorm: 666124 TAKE ONE TA BLET BY MOUTH THREE TIMES A DAY NEEDED 07/25/2019 09/22/2019 Inactive potassium chloride ER 20 mEq tablet,extended release RxNorm: 178800 TAKE ONE TABLET BY MOUTH DAILY 07/25/2019 01/07/2020 Inactive fluoxetine 40 mg capsule RxNorm: 889590 TAKE ONE CAPSULE BY BENOIT TH EVERY MORNING 07/11/2019 10/24/2019 Inactive Medrol (Aníbal) 4 mg tablets in a dose pack RxNorm: 802281 6 Tablet(s) PO QD --then as directed 07/10/2019 07/15/2019 Inactive omeprazole 40 mg capsule,delayed release RxNorm: 843904 1 Capsule(s) PO QD for stomach TAKE ONE CAPSULE BY MOUTH DAILY 07/10/2019 10/24/2019 Inactive Augmentin 875 mg-125 mg tablet RxNorm: 562101 1 Tablet(s) PO BID 07/16/2019 Inactive Trulicity 0.75 mg/0.5 mL subcutaneous pen injector RxNorm: 1 095243 0.75 Milliliter(s) SQ weekly 07/05/2019 10/24/2019 Inactive Compazine 10 mg tablet RxNorm: 990348 TAKE ONE TABLET B Y MOUTH FOUR TIMES A DAY NEEDED FOR NAUSEA 06/20/2019 07/19/2019 Inactive ProAir HFA 90 mcg/actuation aerosol inhaler RxNorm: 950412 INHALE ONE PUFF BY MOUTH EVERY 4 HOURS FOR WHEEZING OR FOR SHORTNESS OF BREATH 06/20/2019 06/23/2019 Inactive Daliresp 500 mcg tablet RxNorm: 8396556 TAKE ONE TABLET BY MOUTH DAILY 06/12/2019 09/10/2019 Inactive sxocsiou-ctdrapdag-nspjvxfng 3.5 mg/mL-10,000 unit/mL- 1 % ear solution RxNorm: 371288 4 Drop(s) otic (ear) TID to left ear 06/05/2019 10/24/2019 Inac tive furosemide 40 mg tablet RxNorm: 793098 TAKE ONE TABLET BY MOUTH EVERY MORNING 05/26/2019 07/09/2019 Inactive Duragesic 100 mcg/hr transdermal patch RxNorm: 834916 2 Application TD Q48H for pain 05/16/2019 06/14/2019 Inactive oxycodone 15 mg tablet RxNorm: 2647581 1 Tablet(s) PO QID as nee ded for pain 05/10/2019 09/20/2019 Inactive doxycycline hyclate 100 mg capsule RxNorm: 3207581 1 Capsule(s) PO BID 05/03/2019 05/12/2019 Inactive prednisone 20 mg tablet RxNorm: 567939 1 Tablet(s) PO T ID for 3 days then 1 po BID for 3 days then one daily for 3 days 05/03/2019 07/11/2019 Inactiv e Ozempic 0.25 mg or 0.5 mg (2 mg/1.5 mL) subcutaneous p en injector RxNorm: 5253561 0.5 Milligram(s) SQ QW 05/03/2019 07/09/2019 Inactive fluconazole 100 mg tablet RxNorm: 104399 1 Tablet(s) PO QD 05/03/2005/07/2019 Inactive Premarin 0.45 mg tablet RxNorm: 497974 TAKE ONE TABLET BY MOUTH DAILY 05/03/2019 10/23/2019 Inactive potassium chloride ER 20 mEq tablet,extended release RxNorm: 506235 1 Tablet(s) PO QD 04/27/2019 07/25/2019 Inactive potassium chloride ER 20 mEq tablet,extended release RxNorm: 630180 1 Tablet(s) PO QD 04/25/2019 04/26/2019 Inactive Compazine 10 mg tablet RxNorm: 844084 1 Tablet(s) PO QID as nee ded for nausea 04/25/2019 05/04/2019 Inactive ProAir HFA 90 mcg/actuation aerosol inhaler RxNorm: 586854 INHALE ONE PUFF BY MOUTH EVERY 4 HOURS FOR WHEEZING OR FOR SHORTNESS OF BREATH 04/12/2019 06/10/2019 Inactive Medrol (Aníbal) 4 mg tablets in a dose pack RxNorm: 268473 6 Tablet(s) PO QD --then as directed 04/11/2019 04/16/2019 Inactive Symbicort 160 mcg-4.5 mcg/actuation HFA aerosol inhaler RxNo rm: 1555422 2 Puff(s) INH BID 04/10/2019 10/06/2019 Inactive levothyroxine 50 mcg tablet RxNorm: 276025 1 Tablet(s) PO QD 201810/24/2019 Inactive gabapentin 300 mg capsule RxNorm: 473996 1 Capsule(s) PO BID 201810/02/2019 Inactive Symbicort 160 mcg-4.5 mcg/actuation HFA aerosol inhaler RxNo rm: 7302404 2 Puff(s) INH BID 04/06/2019 04/09/2019 Inactive oxycodone 15 mg tablet RxNorm: 6298942 1 Tablet(s) PO QID as nee ded for pain 04/05/2019 05/09/2019 Inactive levothyroxine 50 mcg tablet RxNorm: 788696 1 Tablet(s) PO QD 201804/09/2019 Inactive furosemide 40 mg tablet RxNorm: 669482 TAKE ONE TABLET BY MOUTH EVERY MORNING 03/21/2019 04/19/2019 Inactive levothyroxine 50 mcg tablet RxNorm: 242258 TAKE ONE TABLET BY M OUTH DAILY 03/21/2019 03/27/2019 Inactive Duragesic 100 mcg/hr transdermal patch RxNorm: 771567 2 Application TD Q48H for pain 03/13/2019 04/11/2019 Inactive oxycodone 15 mg tablet RxNorm: 0818168 1 Tablet(s) PO QID as nee ded for pain 03/06/2019 04/04/2019 Inactive Relistor 150 mg tablet RxNorm: 4824503 3 Tablet(s) PO QD 02/28/2019 0 05/28/2019 Inactive cyclobenzaprine 10 mg tablet RxNorm: 006946 1 Tablet(s) PO TID as needed 02/28/2019 05/28/2019 Inactive phentermine 37.5 mg tablet RxNorm: 492204 1 Tablet(s) PO QAM 201803/15/2019 Inactive Duragesic 100 mcg/hr transdermal patch RxNorm: 616375 2 Application TD Q48H for pain 02/09/2019 03/10/2019 Inactive Daliresp 500 mcg tablet RxNorm: 5380788 TAKE ONE TABLET BY MOUTH DAILY 01/31/2019 05/30/2019 Inactive Premarin 0.45 mg tablet RxNorm: 766384 1 Tablet(s) PO QD 01/31/2019 0 04/30/2019 Inactive fluoxetine 40 mg capsule RxNorm: 083275 Capsule(s) TAKE ONE CAPSULE BY MOUTH EVERY MORNING 01/31/2019 04/30/2019 Inactive levothyroxine 50 mcg tablet RxNorm: 777099 1 Tablet(s) PO QD 201804/10/2019 Inactive follow up in 3 weeks levothyroxine 50 mcg tablet RxNorm: 472156 1 Tablet(s) PO QD 201801/25/2019 Inactive follow up in 3 weeks potassium chloride ER 20 mEq tablet,extended release RxNorm: 267616 2 Tablet(s) PO BID 01/23/2019 01/08/2020 Inactive Synthroid 50 mcg tablet RxNorm: 244968 TAKE ONE TABLET BY MOUTH DAILY 01/16/2019 10/24/2019 Inactive potassium chloride ER 20 mEq tablet,extended release RxNorm: 045292 2 Tablet(s) PO BID 01/04/2019 01/22/2019 Inactive ProAir HFA 90 mcg/actuation aerosol inhaler RxNorm: 039214 INHALE ONE PUFF BY MOUTH EVERY 4 HOURS FOR WHEEZING OR SHORTNESS OF BREATH 01/04/201902/20 Inactive Request already responded to by other me ans (e.g. phone or fax) ProAir HFA 90 mcg/actuation aerosol inhaler RxNorm: 0022400 INHALE ONE PUFF BY MOUTH EVERY 4 HOURS FOR WHEEZING OR SHORTNESS OF BREATH 01/02/201912/23 Inactive gabapentin 300 mg capsule RxNorm: 707627 TAKE ONE CAPSULE BY MO UTH TWICE A DAY 12/30/2018 04/06/2019 Inactive furosemide 40 mg tablet RxNorm: 239247 1 Tablet(s) PO QAM 12/26/2018 02/23/2019 Inactive Compazine 10 mg tablet RxNorm: 729910 1 Tablet(s) PO QID as nee ded for nausea 12/07/2018 12/16/2018 Inactive metolazone 2.5 mg tablet RxNorm: 749038 TAKE ONE TABLET BY MOUT H EVERY MORNING 12/05/2018 01/03/2019 Inactive metformin ER 500 mg tablet,extended release 24 hr RxNorm: 86 0975 TAKE ONE TABLET BY MOUTH DAILY 12/05/2018 01/31/2020 Inactive Synthroid 50 mcg tablet RxNorm: 397800 1 Tablet(s) PO QD 11/25/2018 0 01/03/2019 Inactive DC any other synthroid strengths. Should be 50mcg only cyclobenzaprine 10 mg tablet RxNorm: 245783 TAKE ONE TA BLET BY MOUTH THREE TIMES A DAY NEEDED 11/09/2018 02/06/2019 Inactive metolazone 2.5 mg tablet RxNorm: 539272 1 Tablet(s) PO QAM repl aces 5mg dose 11/02/2018 12/01/2018 Inactive potassium chloride ER 20 mEq tablet,extended release RxNorm: 701898 2 Tablet(s) PO QD 2018 01/02/2019 Inactive Compazine 10 mg tablet RxNorm: 792707 1 Tablet(s) PO QID as nee ded for nausea 10/18/2018 12/07/2018 Inactive furosemide 40 mg tablet RxNorm: 513231 1 Tablet(s) PO QAM 10/12/2018 12/10/2018 Inactive ondansetron 8 mg disintegrating tablet RxNorm: 828612 1 Tablet(s) PO Q6H as needed 10/11/2018 10/17/2018 Inactive scopolamine 1 mg over 3 days transdermal patch RxNorm: 07372 2 1 Application TD behind ear. Take off after three days 10/11/2018 01/02/2019 Inactive furosemide 40 mg tablet RxNorm: 673779 1 Tablet(s) PO QAM 10/10/2018 12/26/2018 Inactive metolazone 5 mg tablet RxNorm: 489266 1 Tablet(s) PO QAM 10/06/2018 1 01/03/2018 Inactive metolazone 5 mg tablet RxNorm: 550471 1 Tablet(s) PO QAM 10/06/2018 1 12/05/2017 Inactive Xtampza ER 36 mg capsule sprinkle RxNorm: 5007197 1 Capsule(s) P O BID 10/05/2018 01/02/2019 Inactive Xtampza ER 36 mg capsule sprinkle RxNorm: 3894614 1 Capsule(s) P O BID 10/05/2018 02/12/2019 Inactive omeprazole 40 mg capsule,delayed release RxNorm: 504300 TAKE ONE CAPSULE BY MOUTH DAILY 10/03/2018 12/31/2018 Inactive Duragesic 100 mcg/hr transdermal patch RxNorm: 625426 2 Application TD Q48H for pain 09/30/2018 10/29/2018 Inactive Synthroid 50 mcg tablet RxNorm: 015217 1 Tablet(s) PO QD 09/29/2018 0 11/25/2018 Inactive DC any other synthroid strengths. Should be 50mcg only Synthroid 50 mcg tablet RxNorm: 685879 1 Tablet(s) PO QD 09/29/2018 1 11/28/2017 Inactive furosemide 40 mg tablet RxNorm: 595582 2 Tablet(s) PO Q AM for 1 week then every other day for 2 weeks 09/27/2018 10/12/2018 Inactive fluoxetine 40 mg capsule RxNorm: 274521 2 Capsule(s) PO QD 09/27/20 18 10/17/2018 Inactive potassium chloride ER 20 mEq tablet,extended release RxNorm: 940293 2 Tablet(s) PO QD for 1 week then every other day for 2 weeks 09/27/2018 2018 Inactive ProAir HFA 90 mcg/actuation aerosol inhaler RxNorm: 9008830 INHALE ONE PUFF BY MOUTH EVERY 4 HOURS FOR WHEEZING OR SHORTNESS OF BREATH 09/26/201811/23 Inactive Synthroid 75 mcg tablet RxNorm: 393103 1 Tablet(s) PO QD 09/09/2018 1 Inactive Synthroid 75 mcg tablet RxNorm: 822617 1 Tablet(s) PO QD 09/09/2018 1 11/28/2017 Inactive furosemide 40 mg tablet RxNorm: 945777 1 Tablet(s) PO QD 09/06/2018 1 Inactive potassium chloride ER 20 mEq tablet,extended release RxNorm: 269205 1 Tablet(s) PO QD 09/06/2018 09/19/2018 Inactive Duragesic 100 mcg/hr transdermal patch RxNorm: 986126 2 Application TD Q48H for pain 08/30/2018 09/28/2018 Inactive gabapentin 300 mg capsule RxNorm: 362278 TAKE ONE CAPSULE BY MO UT TWICE A DAY 08/23/2018 12/20/2018 Inactive Daliresp 500 mcg tablet RxNorm: 2107001 TAKE ONE TABLET BY MOUTH DAILY 08/23/2018 01/19/2019 Inactive Pulmicort 1 mg/2 mL suspension for nebulization RxNorm: 6168 19 USE ONE VIAL VIA NEBULIZER BY MOUTH TWICE A DAY 08/23/2018 07/11/2019 Inactive Synthroid 88 mcg tablet RxNorm: 513521 1 Tablet(s) PO QD 08/19/2018 1 Inactive Medrol (Aníbal) 4 mg tablets in a dose pack RxNorm: 003893 Tablet(s) PO take as directed 08/16/2018 09/05/2018 Inactive Relistor 150 mg tablet RxNorm: 9244988 3 Tablet(s) PO QD 08/16/2018 1 Inactive Zithromax Z-Aníbal 250 mg tablet RxNorm: 587634 Tablet(s) PO take as directed 08/16/2018 09/05/2018 Inactive cyclobenzaprine 10 mg tablet RxNorm: 841699 1 Tablet(s) PO TID as needed 08/16/2018 11/08/2018 Inactive Synthroid 88 mcg tablet RxNorm: 485585 1 Tablet(s) PO Q D NEEDS UPDATED LABS BEFORE FURTHER REFILLS 08/08/2018 08/19/2018 Inactive Premarin 0.45 mg tablet RxNorm: 904007 1 Tablet(s) PO QD 08/03/2018 0 01/31/2019 Inactive fluoxetine 20 mg capsule RxNorm: 104579 TAKE ONE CAPSULE BY BENOIT TH DAILY 08/03/2018 09/26/2018 Inactive Xtampza ER 36 mg capsule sprinkle RxNorm: 8945753 1 Capsule(s) P O BID 08/03/2018 09/01/2018 Inactive metformin ER 500 mg tablet,extended release 24 hr RxNorm: 86 0975 1 Tablet(s) PO QD 08/03/2018 10/31/2018 Inactive Symbicort 160 mcg-4.5 mcg/actuation HFA aerosol inhaler RxNo rm: 7243833 2 Puff(s) INH BID 08/03/2018 01/29/2019 Inactive Duragesic 100 mcg/hr transdermal patch RxNorm: 837979 2 Application TD Q48H for pain 07/29/2018 08/27/2018 Inactive ProAir HFA 90 mcg/actuation aerosol inhaler RxNorm: 822552 INHALE TWO PUFFS BY MOUTH EVERY 4 HOURS FOR WHEEZING OR SHORTNESS OF BREATH 07/27/201802/2018 Inactive Relistor 150 mg tablet RxNorm: 6291961 3 Tablet(s) PO QD 07/20/2018 0 08/15/2018 Inactive metformin ER 500 mg tablet,extended release 24 hr RxNorm: 86 0975 TAKE ONE TABLET BY MOUTH DAILY 07/08/2018 08/02/2018 Inactive fluoxetine 40 mg capsule RxNorm: 941396 TAKE ONE CAPSULE BY BENOIT TH EVERY MORNING 07/08/2018 10/05/2018 Inactive Xtampza ER 18 mg capsule sprinkle RxNorm: 3700099 1 Capsule(s) P O BID 07/08/2018 08/02/2018 Inactive Relistor 150 mg tablet RxNorm: 6741185 3 Tablet(s) PO QD 07/08/2018 0 07/12/2018 Inactive Synthroid 88 mcg tablet RxNorm: 390280 1 Tablet(s) PO Q D NEEDS UPDATED LABS BEFORE FURTHER REFILLS 06/23/2018 07/07/2018 Inactive fluoxetine 40 mg capsule RxNorm: 408953 TAKE ONE CAPSULE BY BENOIT TH EVERY MORNING 06/15/2018 09/26/2018 Inactive orphenadrine citrate ER 100 mg tablet,extended release RxNor m: 106909 TAKE ONE TABLET BY MOUTH TWICE A DAY FOR MUSCLE SPASM 06/15/2018 08/15/2018 Renu ctive Duragesic 100 mcg/hr transdermal patch RxNorm: 482995 2 Application TD Q48H for pain 05/30/2018 06/28/2018 Inactive ProAir HFA 90 mcg/actuation aerosol inhaler RxNorm: 054492 INHALE TWO PUFFS BY MOUTH EVERY 4 HOURS FOR WHEEZING OR SHORTNESS OF BREATH 05/19/2018 09/0 03/2018 Inactive Chantix Continuing Month Box 1 mg tablet RxNorm: 674068 TAKE ONE TABLET BY MOUTH TWICE A DAY 05/19/2018 08/15/2018 Inactive oxycodone 10 mg tablet RxNorm: 7172932 1-2 Tablet(s) PO QID as n eeded for pain 05/19/2018 07/07/2018 Inactive gabapentin 300 mg capsule RxNorm: 376614 TAKE ONE CAPSULE BY MO UT TWICE A DAY 05/18/2018 07/16/2018 Inactive ProAir HFA 90 mcg/actuation aerosol inhaler RxNorm: 558304 INHALE TWO PUFFS BY MOUTH EVERY 4 HOURS FOR WHEEZING OR SHORTNESS OF BREATH 05/04/201804/23 Inactive Augmentin 500 mg-125 mg tablet RxNorm: 056320 1 Tablet(s) PO BID 05/03/2018 Inactive oxycodone 10 mg tablet RxNorm: 6158206 1-2 Tablet(s) PO QID as n eeded for pain 04/21/2018 05/18/2018 Inactive Synthroid 88 mcg tablet RxNorm: 589689 1 Tablet(s) PO QD 04/15/2018 0 08/08/2018 Inactive Symbicort 160 mcg-4.5 mcg/actuation HFA aerosol inhaler RxNo rm: 2767522 2 Puff(s) INH BID 04/15/2018 04/10/2019 Inactive Premarin 0.45 mg tablet RxNorm: 147471 1 Tablet(s) PO QD 04/15/2018 0 08/03/2018 Inactive ProAir HFA 90 mcg/actuation aerosol inhaler RxNorm: 179949 2 Puff(s) INH Q4H prn for wheezing or shortness of breath 04/15/2018 05/03/2018 Inactive metformin ER 500 mg tablet,extended release 24 hr RxNorm: 86 0975 1 Tablet(s) PO QD 04/11/2018 07/07/2018 Inactive omeprazole 40 mg capsule,delayed release RxNorm: 026840 TAKE ONE CAPSULE BY MOUTH DAILY 04/10/2018 06/08/2018 Inactive Synthroid 88 mcg tablet RxNorm: 617333 1 Tablet(s) PO QD 04/04/2018 0 04/14/2018 Inactive Synthroid 88 mcg tablet RxNorm: 753796 1 Tablet(s) PO QD 04/04/2018 0 04/03/2018 Inactive orphenadrine citrate ER 100 mg tablet,extended release RxNor m: 012007 1 Tablet(s) PO BID for muscle spasm 04/04/2018 05/03/2018 Inactive metformin ER 500 mg tablet,extended release 24 hr RxNorm: 86 0975 1 Tablet(s) PO QD NEEDS UPDATED LABS 03/31/2018 04/11/2018 Inactive doxycycline hyclate 100 mg capsule RxNorm: 3310488 1 Capsule(s) PO BID 03/31/2018 04/09/2018 Inactive prednisone 20 mg tablet RxNorm: 811869 3 Tablet(s) PO T ID for 3 days then 1 po BID for 3 days then one daily for 3 days 03/31/2018 07/06/2018 Inactiv e Chantix Continuing Month Box 1 mg tablet RxNorm: 649777 TAKE ONE TABLET BY MOUTH TWICE A DAY 03/25/2018 03/30/2018 Inactive oxycodone 10 mg tablet RxNorm: 9332815 1-2 Tablet(s) PO QID as n eeded for pain 03/21/2018 04/20/2018 Inactive Daliresp 500 mcg tablet RxNorm: 4917334 1 Tablet(s) PO QD 03/15/2018 08/22/2018 Inactive metformin ER 500 mg tablet,extended release 24 hr RxNorm: 86 0975 1 Tablet(s) PO QD NEEDS UPDATED LABS 03/14/2018 03/31/2018 Inactive nystatin 100,000 unit/mL oral suspension RxNorm: 717788 5 Chio liter(s) PO QID 03/02/2018 03/15/2018 Inactive nystatin 100,000 unit/mL oral suspension RxNorm: 366935 5 Chio liter(s) PO QID 03/02/2018 03/01/2018 Inactive oxycodone 10 mg tablet RxNorm: 2522559 1-2 Tablet(s) PO QID as n eeded for pain 02/16/2018 03/20/2018 Inactive fluoxetine 20 mg capsule RxNorm: 554997 1 Capsule(s) PO QD 02/15/20 18 08/02/2018 Inactive metformin ER 500 mg tablet,extended release 24 hr RxNorm: 86 0975 1 Tablet(s) PO QD Needs updated labs 02/14/2018 03/14/2018 Inactive cefdinir 300 mg capsule RxNorm: 607128 1 Capsule(s) PO BID 01/27/20 18 02/04/2018 Inactive orphenadrine citrate ER 100 mg tablet,extended release RxNor m: 285266 1 Tablet(s) PO BID for muscle spasm 01/26/2018 04/04/2018 Inactive gabapentin 300 mg capsule RxNorm: 462591 1 Capsule(s) PO BID 201704/17/2018 Inactive oxycodone 10 mg tablet RxNorm: 7570802 1-2 Tablet(s) PO QID as n eeded for pain 01/17/2018 02/15/2018 Inactive Duragesic 100 mcg/hr transdermal patch RxNorm: 890144 2 Application TD Q48H for pain 01/17/2018 02/15/2018 Inactive gabapentin 300 mg capsule RxNorm: 108680 TAKE ONE CAPSULE BY MO UTH TWICE A DAY 12/20/2017 01/18/2018 Inactive fluoxetine 40 mg capsule RxNorm: 990853 TAKE ONE CAPSULE BY BENOIT TH EVERY MORNING 12/15/2017 03/14/2018 Inactive OneTouch Ultra Test strips RxNorm: TEST DAILY 11/04/2017 02/01/2018 Inactive gabapentin 300 mg capsule RxNorm: 158354 1 Capsule(s) P O TID replaces BID dosing 10/26/2017 02/22/2018 Inactive oxycodone 10 mg tablet RxNorm: 3688603 1-2 Tablet(s) PO QID as n eeded for pain 10/18/2017 01/16/2018 Inactive Duragesic 100 mcg/hr transdermal patch RxNorm: 126223 2 Application TD Q48H for pain 10/18/2017 11/16/2017 Inactive gabapentin 300 mg capsule RxNorm: 797982 1 Capsule(s) PO BID 201610/25/2017 Inactive Abilify 5 mg tablet RxNorm: 832432 1 Tablet(s) PO QAM 09/23/201702/2017 Inactive gabapentin 300 mg capsule RxNorm: 911028 1 Capsule(s) PO BID 201610/17/2017 Inactive oxycodone 10 mg tablet RxNorm: 6005552 1-2 Tablet(s) PO QID as n eeded for pain 09/15/2017 10/17/2017 Inactive Duragesic 100 mcg/hr transdermal patch RxNorm: 263758 2 Application TD Q48H for pain 09/15/2017 10/14/2017 Inactive Duragesic 100 mcg/hr transdermal patch RxNorm: 314786 2 Application TD Q48H for pain 09/15/2017 10/24/2019 Inactive oxycodone 10 mg tablet RxNorm: 0761896 1-2 Tablet(s) PO QID as n eeded for pain 09/15/2017 08/15/2018 Inactive Daliresp 500 mcg tablet RxNorm: 4433196 1 Tablet(s) PO QD 09/06/2017 03/15/2018 Inactive Ventolin HFA 90 mcg/actuation aerosol inhaler RxNorm: 711765 2 Puff(s) INH Q4H as needed 09/02/2017 05/19/2018 Inactive oxycodone 10 mg tablet RxNorm: 6235704 1-2 Tablet(s) PO QID as n eeded for pain 08/17/2017 09/14/2017 Inactive Duragesic 100 mcg/hr transdermal patch RxNorm: 234847 2 Application TD Q48H for pain 08/17/2017 09/14/2017 Inactive fluoxetine 40 mg capsule RxNorm: 359653 Capsule(s) TAKE ONE CAPSULE BY MOUTH EVERY MORNING 08/17/2017 12/14/2017 Inactive Pulmicort 1 mg/2 mL suspension for nebulization RxNorm: 6168 19 1 Unit Dose INH BID Dx: COPD (J44.9) 08/16/2017 08/22/2018 Inactive gabapentin 300 mg capsule RxNorm: 439650 1 Capsule(s) PO QHS 201610/18/2017 Inactive fluoxetine 20 mg capsule RxNorm: 351836 1 Capsule(s) PO QD 08/12/20 17 02/14/2018 Inactive Abilify 2 mg tablet RxNorm: 213085 1 Tablet(s) PO QD TA KE ONE TABLET BY MOUTH DAILY 08/12/2017 10/25/2017 Inactive metformin ER 500 mg tablet,extended release 24 hr RxNorm: 86 0975 1 Tablet(s) PO QD 08/10/2017 02/14/2018 Inactive Synthroid 112 mcg tablet RxNorm: 307288 1 Tablet(s) PO QD 08/10/2017 04/15/2018 Inactive oxycodone 10 mg tablet RxNorm: 0812559 1-2 Tablet(s) PO QID as n eeded for pain 07/19/2017 08/16/2017 Inactive Duragesic 100 mcg/hr transdermal patch RxNorm: 895520 2 Application TD Q48H for pain 07/19/2017 08/16/2017 Inactive Ventolin HFA 90 mcg/actuation aerosol inhaler RxNorm: 682561 2 Puff(s) INH Q4H as needed 07/12/2017 09/02/2017 Inactive Abilify 2 mg tablet RxNorm: 687803 1 Tablet(s) PO QD TA KE ONE TABLET BY MOUTH DAILY 07/06/2017 08/11/2017 Inactive gabapentin 800 mg tablet RxNorm: 506221 1 Tablet(s) PO TID 06/22/20 17 07/05/2017 Inactive Chantix Starting Month Box 0.5 mg (11)-1 mg (42) table ts in dose pack RxNorm: 923981 TAKE BY MOUTH INSTRUCTED - PER PACKAGE INSTRUCTIONS 06/0707/04/2017 Inactive Ventolin HFA 90 mcg/actuation aerosol inhaler RxNorm: 040574 2 Puff(s) INH Q4H as needed 05/26/2017 07/12/2017 Inactive Duragesic 100 mcg/hr transdermal patch RxNorm: 252652 2 Application TD Q48H for pain 05/19/2017 06/17/2017 Inactive oxycodone 10 mg tablet RxNorm: 5667307 1-2 Tablet(s) PO QID as n eeded for pain 05/19/2017 07/18/2017 Inactive Abilify 2 mg tablet RxNorm: 098556 TAKE ONE TABLET BY MOUTH DAILY 0 05/10/2017 07/05/2017 Inactive Synthroid 112 mcg tablet RxNorm: 475680 1 Tablet(s) PO QD 05/06/2017 08/10/2017 Inactive metformin ER 500 mg tablet,extended release 24 hr RxNorm: 86 0975 1 Tablet(s) PO QD 05/06/2017 08/10/2017 Inactive Topamax 100 mg tablet RxNorm: 183090 1 Tablet(s) PO QHS 05/06/2017 Inactive Premarin 0.45 mg tablet RxNorm: 922723 1 Tablet(s) PO QD 05/06/2017 0 04/15/2018 Inactive orphenadrine citrate ER 100 mg tablet,extended release RxNor m: 991774 1 Tablet(s) PO TID for muscle spasm--replaces methocarbamol 04/29/2017 Inactive oxycodone 10 mg tablet RxNorm: 1838406 1-2 Tablet(s) PO QID as n eeded for pain 04/21/2017 05/18/2017 Inactive Duragesic 100 mcg/hr transdermal patch RxNorm: 361313 2 Application TD Q48H for pain 04/21/2017 05/18/2017 Inactive fluoxetine 40 mg capsule RxNorm: 093169 Capsule(s) TAKE ONE CAPSULE BY MOUTH EVERY MORNING 04/20/2017 08/17/2017 Inactive Ventolin HFA 90 mcg/actuation aerosol inhaler RxNorm: 857899 2 Puff(s) INH Q4H as needed 04/05/2017 05/26/2017 Inactive Symbicort 160 mcg-4.5 mcg/actuation HFA aerosol inhaler RxNo rm: 6847741 2 Puff(s) INH BID 03/30/2017 04/15/2018 Inactive Spiriva with HandiHaler 18 mcg and inhalation capsules RxNor m: 652117 1 Capsule(s) INH QD USING HANDIHALER 03/30/2017 02/12/2019 Inactive Duragesic 100 mcg/hr transdermal patch RxNorm: 754219 2 Application TD Q48H for pain 03/18/2017 04/16/2017 Inactive oxycodone 10 mg tablet RxNorm: 2930950 1-2 Tablet(s) PO QID as n eeded for pain 03/18/2017 04/20/2017 Inactive metformin ER 500 mg tablet,extended release 24 hr RxNorm: 86 0975 Tablet(s) TAKE ONE TABLET BY MOUTH DAILY 03/01/2017 05/06/2017 Inactive Premarin 0.45 mg tablet RxNorm: 451087 Tablet(s) TAKE ONE TABLE T BY MOUTH DAILY 03/01/2017 05/06/2017 Inactive Synthroid 112 mcg tablet RxNorm: 088802 Tablet(s) TAKE ONE TABLET BY MOUTH DAILY 03/01/2017 05/06/2017 Inactive Daliresp 500 mcg tablet RxNorm: 4887585 1 Tablet(s) PO QD 03/01/2017 09/06/2017 Inactive 16.2 mg-0.1037 mg-0.0194 mg tablet RxNorm: 9175588 Tablet(s) PO PRN for gas and cramping 02/23/2017 04/28/2017 Inactive TAKE TWO TABLET S BY MOUTH THREE TIMES A DAY NEEDED FOR GAS AND CRAMPING gabapentin 800 mg tablet RxNorm: 041165 1 Tablet(s) PO TID repl aces 600mg 02/23/2017 04/28/2017 Inactive Duragesic 100 mcg/hr transdermal patch RxNorm: 321584 2 Application TD Q48H for pain 02/17/2017 03/17/2017 Inactive fluoxetine 20 mg capsule RxNorm: 355682 1 Capsule(s) PO QD 02/18/20 17 08/12/2017 Inactive oxycodone 20 mg tablet RxNorm: 0301225 1 Tablet(s) PO QID as nee ded for pain 02/17/2017 03/17/2017 Inactive Ventolin HFA 90 mcg/actuation aerosol inhaler RxNorm: 796538 INHALE TWO PUFFS BY MOUTH EVERY 4 HOURS NEEDED 02/15/2017 04/05/2017 Inactive Silvadene 1 % topical cream RxNorm: 956960 1 Application TOP BI D to burn area 02/01/2017 09/22/2017 Inactive Topamax 100 mg tablet RxNorm: 499477 TAKE ONE TABLET BY MOUTH EVERY NIGHT AT BEDTIME 01/29/2017 05/06/2017 Inactive Chantix Starting Month Box 0.5 mg (11)-1 mg (42) table ts in dose pack RxNorm: 624624 Tablet(s) PO as directed 01/29/2017 06/01/2017 Inactive Abilify 2 mg tablet RxNorm: 551192 TAKE ONE TABLET BY MOUTH DAILY 0 01/26/2017 04/25/2017 Inactive Chantix Starting Month Box 0.5 mg (11)-1 mg (42) table ts in dose pack RxNorm: 799341 Tablet(s) PO as directed 01/20/2017 01/28/2017 Inactive gabapentin 600 mg tablet RxNorm: 131756 1 Tablet(s) PO TID 01/21/20 17 02/22/2017 Inactive Chantix Continuing Month Box 1 mg tablet RxNorm: 798114 1 Table t(s) PO BID 12/31/2016 06/01/2017 Inactive Spiriva with HandiHaler 18 mcg and inhalation capsules RxNor m: 539691 INHALE THE ENTIRE CONTENTS OF 1 CAPSULE ONCE A DAY USING HANDIHALER 12/31/201607/2017 Inactive Synthroid 112 mcg tablet RxNorm: 682662 TAKE ONE TABLET BY MOUT H DAILY 12/30/2016 03/01/2017 Inactive metformin ER 500 mg tablet,extended release 24 hr RxNorm: 86 0975 TAKE ONE TABLET BY MOUTH DAILY 12/30/2016 03/01/2017 Inactive Premarin 0.45 mg tablet RxNorm: 307670 TAKE ONE TABLET BY MOUTH DAILY 12/30/2016 03/01/2017 Inactive omeprazole 40 mg capsule,delayed release RxNorm: 943157 TAKE ONE CAPSULE BY MOUTH DAILY 12/30/2016 01/25/2018 Inactive Ventolin HFA 90 mcg/actuation aerosol inhaler RxNorm: 934363 INHALE TWO PUFFS BY MOUTH EVERY 4 HOURS NEEDED 12/28/2016 02/13/2017 Inactive fluoxetine 40 mg capsule RxNorm: 898200 TAKE ONE CAPSULE BY BENOIT TH EVERY MORNING 12/15/2016 04/20/2017 Inactive Chantix Continuing Month Box 1 mg tablet RxNorm: 717727 TAKE ONE TABLET BY MOUTH TWICE A DAY 12/04/2016 12/31/2016 Inactive doxycycline hyclate 100 mg capsule RxNorm: 9483445 1 Capsule(s) PO BID 12/01/2016 12/07/2016 Inactive Levaquin 750 mg tablet RxNorm: 856656 1 Tablet(s) PO QD 12/01/2016 Inactive Abilify 2 mg tablet RxNorm: 026812 TAKE ONE TABLET BY MOUTH DAILY 0 11/25/2016 11/30/2016 Inactive Ventolin HFA 90 mcg/actuation aerosol inhaler RxNorm: 475250 INHALE TWO PUFFS BY MOUTH EVERY 4 HOURS NEEDED 11/02/2016 12/19/2016 Inactive Chantix Continuing Month Box 1 mg tablet RxNorm: 316782 Tablet(s) PO as directed 10/30/2016 12/03/2016 Inactive Symbicort 160 mcg-4.5 mcg/actuation HFA aerosol inhaler RxNo rm: 2538024 INHALE TWO PUFFS TWO TIMES A DAY 10/30/2016 03/30/2017 Inactive Abilify 2 mg tablet RxNorm: 600163 1 Tablet(s) PO QD 10/27/201611/24 Inactive amoxicillin 500 mg capsule RxNorm: 535272 1 Capsule(s) PO TID 10/1410/23/2016 Inactive amoxicillin 500 mg capsule RxNorm: 534779 1 Capsule(s) PO TID 10/1410/13/2016 Inactive Synthroid 112 mcg tablet RxNorm: 134251 TAKE ONE TABLET BY MOUT H DAILY 09/28/2016 12/29/2016 Inactive Topamax 100 mg tablet RxNorm: 863939 TAKE ONE TABLET BY MOUTH EVERY NIGHT AT BEDTIME 09/28/2016 01/28/2017 Inactive Premarin 0.45 mg tablet RxNorm: 821121 TAKE ONE TABLET BY MOUTH DAILY 09/28/2016 12/29/2016 Inactive metformin ER 500 mg tablet,extended release 24 hr RxNorm: 86 0975 TAKE ONE TABLET BY MOUTH DAILY 09/28/2016 12/29/2016 Inactive Ventolin HFA 90 mcg/actuation aerosol inhaler RxNorm: 084948 INHALE TWO PUFFS BY MOUTH EVERY 4 HOURS NEEDED 09/22/2016 10/23/2016 Inactive Pulmicort 1 mg/2 mL suspension for nebulization RxNorm: 6168 19 1 Unit Dose INH BID Dx: COPD (J44.9) 09/10/2016 08/16/2017 Inactive Pulmicort 1 mg/2 mL suspension for nebulization RxNorm: 6168 19 1 Unit Dose INH BID 09/10/2016 09/09/2016 Inactive Brovana 15 mcg/2 mL solution for nebulization RxNorm: 685097 1 Unit Dose INH BID Dx: COPD (J44.9) 09/10/2016 01/25/2018 Inactive Brovana 15 mcg/2 mL solution for nebulization RxNorm: 750460 1 Unit Dose INH BID 09/10/2016 09/09/2016 Inactive ipratropium-albuterol 0.5 mg-3 mg(2.5 mg base)/3 mL ne bulization soln RxNorm: 3892302 1 Unit Dose INH Q4H as needed Dx: COPD (J44.9) 09/10/2016 0 02/12/2019 Inactive orphenadrine citrate ER 100 mg tablet,extended release RxNor m: 847384 1 Tablet(s) PO BID for muscle spasm--replaces methocarbamol 09/09/2016 Inactive Chantix Continuing Month Box 1 mg tablet RxNorm: 178347 Tablet(s) PO as directed 09/09/2016 10/30/2016 Inactive orphenadrine citrate ER 100 mg tablet,extended release RxNor m: 593097 1 Tablet(s) PO BID for muscle spasm 09/09/2016 09/08/2016 Inactive Spiriva with HandiHaler 18 mcg and inhalation capsules RxNor m: 166903 INHALE THE ENTIRE CONTENTS OF 1 CAPSULE ONCE A DAY USING HANDIHALER 09/01/201605/2017 Inactive Daliresp 500 mcg tablet RxNorm: 2795456 1 Tablet(s) PO QD 08/27/2016 03/01/2017 Inactive prednisone 20 mg tablet RxNorm: 062399 3 Tablet(s) PO T ID for 3 days then 1 po BID for 3 days then one daily for 3 days 08/26/2016 04/28/2017 Inactiv e Wellbutrin XL 300 mg 24 hr tablet, extended release RxNorm: 674254 TAKE ONE TABLET BY MOUTH EVERY MORNING 07/29/2016 10/26/2016 Inactive gabapentin 600 mg tablet RxNorm: 414087 1 Tablet(s) PO BID 06/26/20 16 12/22/2016 Inactive fluoxetine 40 mg capsule RxNorm: 837586 TAKE ONE CAPSULE BY BENOIT TH EVERY MORNING 06/24/2016 11/20/2016 Inactive Duragesic 100 mcg/hr transdermal patch RxNorm: 082214 2 Application TD Q48H for pain 06/05/2016 07/04/2016 Inactive oxycodone 10 mg tablet RxNorm: 0168247 1-2 Tablet(s) PO QID as n eeded for pain 06/05/2016 03/17/2017 Inactive Belladonna-Phenobarbital 48 mg tablet,extended release RxNor m: 2 Tablet(s) PO TID 06/05/2016 01/19/2017 Inactive Premarin 0.45 mg tablet RxNorm: 570801 TAKE ONE TABLET BY MOUTH DAILY 05/27/2016 09/23/2016 Inactive Topamax 100 mg tablet RxNorm: 649822 TAKE ONE TABLET BY MOUTH EVERY NIGHT AT BEDTIME 05/27/2016 09/27/2016 Inactive Synthroid 112 mcg tablet RxNorm: 314783 TAKE ONE TABLET BY MOUT H DAILY 05/27/2016 09/23/2016 Inactive metformin ER 500 mg tablet,extended release 24 hr RxNorm: 86 0975 TAKE ONE TABLET BY MOUTH DAILY 05/27/2016 09/23/2016 Inactive Symbicort 160 mcg-4.5 mcg/actuation HFA aerosol inhaler RxNo rm: 8321468 INHALE TWO PUFFS TWO TIMES A DAY 05/27/2016 10/23/2016 Inactive Ventolin HFA 90 mcg/actuation aerosol inhaler RxNorm: 683994 INHALE TWO PUFFS BY MOUTH EVERY 4 HOURS NEEDED 05/21/2016 07/07/2016 Inactive omeprazole 40 mg capsule,delayed release RxNorm: 754187 1 Capsu le(s) PO QD 05/06/2016 08/03/2016 Inactive metformin ER 500 mg tablet,extended release 24 hr RxNorm: 86 0975 TAKE ONE TABLET BY MOUTH DAILY 04/23/2016 05/22/2016 Inactive methocarbamol 750 mg tablet RxNorm: 712922 2 Tablet(s) PO TID as needed for muscle spasm 04/23/2016 09/08/2016 Inactive Synthroid 112 mcg tablet RxNorm: 229291 TAKE ONE TABLET BY MOUT H DAILY 04/23/2016 05/22/2016 Inactive Spiriva with HandiHaler 18 mcg and inhalation capsules RxNor m: 425413 INHALE THE ENTIRE CONTENTS OF 1 CAPSULE ONCE A DAY USING HANDIHALER 04/09/201608/2016 Inactive Diflucan 100 mg tablet RxNorm: 836378 1 Tablet(s) PO QD 04/08/2016 Inactive doxycycline hyclate 100 mg capsule RxNorm: 7481789 1 Capsule(s) PO BID 04/08/2016 04/17/2016 Inactive doxycycline hyclate 100 mg capsule RxNorm: 9545405 1 Capsule(s) PO BID 04/08/2016 04/07/2016 Inactive Diflucan 100 mg tablet RxNorm: 523462 1 Tablet(s) PO QD 04/08/2016 Inactive ondansetron HCl 4 mg tablet RxNorm: 631205 1 Tablet(s) PO Q4H as needed for nausea and vomiting 04/08/2016 09/22/2017 Inactive gabapentin 600 mg tablet RxNorm: 816515 TAKE ONE TABLET BY MOUT H TWICE A DAY 03/24/2016 06/25/2016 Inactive Synthroid 112 mcg tablet RxNorm: 576610 TAKE ONE TABLET BY MOUT H DAILY 02/25/2016 04/22/2016 Inactive Levaquin 500 mg tablet RxNorm: 711481 1 Tablet(s) PO QD 01/23/2016 Inactive prednisone 20 mg tablet RxNorm: 575709 1 Tablet(s) PO T ID for 3 days then 1 po BID for 3 days then one daily for 3 days 01/23/2016 08/25/2016 Inactiv e Rhapso Ultra Test strips RxNorm: TEST BLOOD SUGAR ONCE DAILY 250.00 01/09/2016 11/04/2017 Inactive methocarbamol 750 mg tablet RxNorm: 668811 2 Tablet(s) PO TID as needed for muscle spasm 01/09/2016 04/23/2016 Inactive lactulose 10 gram/15 mL oral solution RxNorm: 149070 [address](s) PO QD 01/09/2016 09/22/2017 Inactive TAKE 1 TABLESPOON BY MOUTH ONCE DAILY metformin ER 500 mg tablet,extended release 24 hr RxNorm: 86 0975 1 Tablet(s) PO QD 12/26/2015 04/22/2016 Inactive fluoxetine 20 mg capsule RxNorm: 036118 1 Capsule(s) PO QD 12/23/19 16 06/19/2016 Inactive Premarin 0.45 mg tablet RxNorm: 087116 TAKE ONE TABLET BY MOUTH DAILY 12/23/2015 05/20/2016 Inactive fluoxetine 40 mg capsule RxNorm: 439827 1 Capsule(s) PO QD 12/23/19 16 06/19/2016 Inactive TAKE ONE CAPSULE BY MOUTH EV JANKI MORNING azithromycin 500 mg tablet RxNorm: 312468 1 Tablet(s) PO QD 016 12/19/2015 Inactive Zofran 4 mg tablet RxNorm: 748284 1 Tablet(s) PO Q4H prn nausea /vomiting 12/13/2015 03/30/2018 Inactive azithromycin 500 mg tablet RxNorm: 040892 1 Tablet(s) PO QD 016 12/12/2015 Inactive Duragesic 100 mcg/hr transdermal patch RxNorm: 847306 2 Application TD Q48H for pain 12/09/2015 01/07/2016 Inactive oxycodone 10 mg tablet RxNorm: 2843518 1-2 Tablet(s) PO QID as n eeded for pain 12/09/2015 06/04/2016 Inactive Bactroban 2 % topical cream RxNorm: 327494 Application TOP BID 11/2208/25/2016 Inactive doxycycline hyclate 100 mg capsule RxNorm: 9365856 1 Capsule(s) PO BID 12/03/2015 12/12/2015 Inactive Topamax 100 mg tablet RxNorm: 133936 TAKE ONE TABLET BY MOUTH EVERY NIGHT AT BEDTIME 11/25/2015 05/22/2016 Inactive Symbicort 160 mcg-4.5 mcg/actuation HFA aerosol inhaler RxNo rm: 4705947 INHALE TWO PUFFS TWO TIMES A DAY 11/25/2015 05/22/2016 Inactive Synthroid 112 mcg tablet RxNorm: 351623 Tablet(s) TAKE ONE TABLET BY MOUTH DAILY 11/25/2015 02/22/2016 Inactive omeprazole 40 mg capsule,delayed release RxNorm: 232842 1 Capsu le(s) PO QD 11/12/2015 05/05/2016 Inactive oxycodone 10 mg tablet RxNorm: 5910124 1-2 Tablet(s) PO QID as n eeded for pain 11/05/2015 12/08/2015 Inactive Duragesic 100 mcg/hr transdermal patch RxNorm: 731104 2 Application TD Q48H for pain 11/05/2015 12/04/2015 Inactive omeprazole 40 mg capsule,delayed release RxNorm: 542882 1 Capsu le(s) PO QD 10/07/2015 11/11/2015 Inactive Januvia 100 mg tablet RxNorm: 150472 TAKE ONE TABLET BY MOUTH DAILY 09/11/2015 12/25/2015 Inactive Zithromax 500 mg tablet RxNorm: 939364 1 Tablet(s) PO QD 09/10/2015 1 Inactive prednisone 20 mg tablet RxNorm: 200985 1 Tablet(s) PO T ID for 3 days then 1 po BID for 3 days then one daily for 3 days 09/10/2015 08/25/2016 Inactiv e Wellbutrin XL 300 mg 24 hr tablet, extended release RxNorm: 062771 1 Tablet(s) PO QAM 09/10/2015 12/02/2015 Inactive Topamax 100 mg tablet RxNorm: 672514 TAKE ONE TABLET BY MOUTH EVERY NIGHT AT BEDTIME 09/02/2015 11/24/2015 Inactive Synthroid 112 mcg tablet RxNorm: 287785 TAKE ONE TABLET BY MOUT H DAILY 09/02/2015 11/25/2015 Inactive methocarbamol 750 mg tablet RxNorm: 917547 2 Tablet(s) PO TID as needed for muscle spasm 08/15/2015 01/09/2016 Inactive Wellbutrin XL 150 mg 24 hr tablet, extended release RxNorm: 498582 TAKE ONE TABLET BY MOUTH EVERY MORNING 08/13/2015 08/13/2015 Inactive gabapentin 600 mg tablet RxNorm: 795147 1 Tablet(s) PO BID 08/13/20 15 02/08/2016 Inactive Wellbutrin XL 300 mg 24 hr tablet, extended release RxNorm: 747291 1 Tablet(s) PO QAM 08/06/2015 09/09/2015 Inactive Wellbutrin XL 150 mg 24 hr tablet, extended release RxNorm: 950410 1 Tablet(s) PO QAM 07/18/2015 08/05/2015 Inactive prednisone 20 mg tablet RxNorm: 424267 1 Tablet(s) PO BID 07/18/2015 07/22/2015 Inactive doxycycline hyclate 100 mg tablet,delayed release RxNorm: 43 4018 1 Tablet(s) PO BID 07/18/2015 07/27/2015 Inactive pravastatin 40 mg tablet RxNorm: 948201 1 Tablet(s) PO QD NEEDS FASTING LAB 07/15/2015 07/14/2015 Inactive pravastatin 40 mg tablet RxNorm: 753969 1 Tablet(s) PO QD NEEDS FASTING LAB 07/15/2015 01/25/2018 Inactive Ventolin HFA 90 mcg/actuation aerosol inhaler RxNorm: 019416 2 Puff(s) INH Q4H 07/08/2015 07/07/2015 Inactive prn Premarin 0.45 mg tablet RxNorm: 832269 1 Tablet(s) PO QD 07/01/2015 0 12/22/2015 Inactive pravastatin 40 mg tablet RxNorm: 504486 1 Tablet(s) PO QD NEEDS FASTING LAB 06/14/2015 07/15/2015 Inactive Ventolin HFA 90 mcg/actuation aerosol inhaler RxNorm: 5828644 2 Puff(s) INH Q4H 06/06/2015 07/08/2015 Inactive prn albuterol sulfate 2.5 mg/3 mL (0.083 %) solution for n ebulization RxNorm: 566037 1 Unit Dose INH QID 05/30/2015 No Stop Date Active Duragesic 100 mcg/hr transdermal patch RxNorm: 326423 2 Application TD Q48H for pain 04/29/2015 05/28/2015 Inactive gabapentin 600 mg tablet RxNorm: 579850 1 Tablet(s) PO BID 04/11/20 15 08/13/2015 Inactive Onglyza 5 mg tablet RxNorm: 645483 1 Tablet(s) PO QD for blood suga r 04/10/2015 04/15/2015 Inactive [Brand Copay Card: RxBIN:[id number] N:CRISTIANA RxGRP:[id number] ID#:[id number]] methocarbamol 750 mg tablet RxNorm: 779325 2 Tablet(s) PO TID as needed for muscle spasm 03/28/2015 08/15/2015 Inactive pravastatin 40 mg tablet RxNorm: 264419 1 Tablet(s) PO QD 03/19/2015 03/18/2015 Inactive pravastatin 40 mg tablet RxNorm: 429366 1 Tablet(s) PO QD 03/19/2015 06/14/2015 Inactive lactulose 10 gram/15 mL oral solution RxNorm: 617399 [address]s) PO QD 03/07/2015 01/09/2016 Inactive TAKE 1 TABLESPOON BY MOUTH ONCE DAILY oxycodone 20 mg tablet RxNorm: 5408735 1 Tablet(s) PO QID as nee ded for pain 03/05/2015 07/08/2015 Inactive Topamax 100 mg tablet RxNorm: 199504 1 Tablet(s) PO QHS TAKE ONE TABLET BY MOUTH AT BEDTIME 02/25/2015 02/12/2019 Inactive metformin ER 500 mg tablet,extended release 24 hr RxNorm: 86 0975 1 Tablet(s) PO QD 02/11/2015 03/04/2015 Inactive take one tablet by mouth every day Daliresp 500 mcg tablet RxNorm: 5211214 1 Tablet(s) PO QD 02/11/2015 08/09/2015 Inactive Endocet 10 mg-325 mg tablet RxNorm: 9750809 1 Tablet(s) PO Q4H as needed for pain 01/23/2015 01/23/2015 Inactive gabapentin 600 mg tablet RxNorm: 615980 1 Tablet(s) PO BID 01/23/20 15 04/11/2015 Inactive methocarbamol 750 mg tablet RxNorm: 602396 2 Tablet(s) PO TID as needed for muscle spasm 01/15/2015 02/13/2015 Inactive fluoxetine 40 mg capsule RxNorm: 006823 1 Capsule(s) PO QD 01/14/20 15 12/23/2015 Inactive TAKE ONE CAPSULE BY MOUTH EV JANKI MORNING fluoxetine 20 mg capsule RxNorm: 086664 1 Capsule(s) PO QD 01/14/20 15 12/23/2015 Inactive Premarin 0.45 mg tablet RxNorm: 017145 1 Tablet(s) PO QD 01/02/2015 0 07/01/2015 Inactive Endocet 10 mg-325 mg tablet RxNorm: 8918834 1-2 Tablet(s) PO Q4H 02/12/2019 Inactive PRN PAIN Duragesic 100 mcg/hr transdermal patch RxNorm: 370799 2 Application TD Q48H for pain 12/25/2014 01/23/2015 Inactive Topamax 100 mg tablet RxNorm: 327580 1 Tablet(s) PO QHS TAKE ONE TABLET BY MOUTH AT BEDTIME 12/25/2014 02/24/2015 Inactive Tudorza Pressair 400 mcg/actuation breath activated RxNorm: 7027376 1 BID INHALE ONE PUFF INTO LUNGS TWO TIMES A DAY 12/17/2014 05/15/2015 Inactive Endocet 10 mg-325 mg tablet RxNorm: 2913429 1-2 Tablet(s) PO Q4H 12/19/2014 Inactive PRN PAIN Duragesic 100 mcg/hr transdermal patch RxNorm: 279610 2 Application TD Q48H for pain 11/20/2014 12/24/2014 Inactive OneTouch Ultra Test strips RxNorm: TEST BLOOD SUGAR ONCE DAILY 250.00 11/16/2014 01/08/2016 Inactive omeprazole 40 mg capsule,delayed release RxNorm: 663789 1 Capsu le(s) PO QD 11/13/2014 11/12/2015 Inactive metformin ER 500 mg tablet,extended release 24 hr RxNorm: 86 0975 1 Tablet(s) PO QD 11/12/2014 02/11/2015 Inactive take one tablet by mouth every day Symbicort 160 mcg-4.5 mcg/actuation HFA aerosol inhaler RxNo rm: 1163488 2 Puff(s) INH BID 11/12/2014 03/11/2015 Inactive INHALE 2 PUFFS O RALLY TWO TIMES A DAY gabapentin 800 mg tablet RxNorm: 145251 1 Tablet(s) PO QD TAKE ONE TABLET BY MOUTH ONCE A DAY 10/22/2014 01/01/2015 Inactive Endocet 10 mg-325 mg tablet RxNorm: 9342123 1-2 Tablet(s) PO Q4H 11/15/2014 Inactive PRN PAIN Duragesic 100 mcg/hr transdermal patch RxNorm: 143607 2 Application TD Q48H for pain 10/17/2014 11/19/2014 Inactive gabapentin 800 mg tablet RxNorm: 026588 1 Tablet(s) PO QD TAKE ONE TABLET BY MOUTH ONCE A DAY 10/04/2014 10/21/2014 Inactive Premarin 0.9 mg tablet RxNorm: 049114 1 Tablet(s) PO QD TAKE ONE TABLET BY MOUTH ONCE A DAY 10/04/2014 01/01/2015 Inactive Spiriva with HandiHaler 18 mcg & inhalation capsules RxNorm: 820699 1 Capsule(s) INH QD 10/03/2014 04/30/2015 Inactive Levaquin 500 mg tablet RxNorm: 882703 1 Tablet(s) PO QD 10/03/2014 Inactive prednisone 20 mg tablet RxNorm: 157748 1 Tablet(s) PO QD 10/03/2014 1 12/09/2013 Inactive Duragesic 100 mcg/hr transdermal patch RxNorm: 722772 2 Application TD Q48H for pain 09/18/2014 10/16/2014 Inactive Endocet 10 mg-325 mg tablet RxNorm: 2021435 1-2 Tablet(s) PO Q4H 10/16/2014 Inactive PRN PAIN Synthroid 112 mcg tablet RxNorm: 405741 1 Tablet(s) QD 09/10/2014 Inactive Synthroid 112 mcg tablet RxNorm: 314866 TAKE ONE TABLET BY MOUTH ONE TIME A DAY. NEEDS LABS 09/10/2014 02/06/2015 Inactive omeprazole 40 mg capsule,delayed release RxNorm: 965397 1 Capsu le(s) PO QD 09/03/2014 11/13/2014 Inactive omeprazole 40 mg capsule,delayed release RxNorm: 457978 1 Capsu le(s) PO QD 09/03/2014 09/02/2014 Inactive Spiriva with HandiHaler 18 mcg & inhalation capsules RxNorm: 110133 1 Capsule(s) INH QD 08/27/2014 10/02/2014 Inactive gabapentin 600 mg tablet RxNorm: 325123 1 Tablet(s) PO BID 08/27/20 14 10/22/2014 Inactive Endocet 10 mg-325 mg tablet RxNorm: 4108133 1-2 Tablet(s) PO Q4H 09/17/2014 Inactive PRN PAIN fentanyl 100 mcg/hr transdermal patch RxNorm: 605726 1 Unit Dos e TD QD 08/21/2014 09/19/2014 Inactive Daliresp 500 mcg tablet RxNorm: 9900579 1 Tablet(s) PO QD 08/13/2014 02/11/2015 Inactive Synthroid 112 mcg tablet RxNorm: 233197 TAKE ONE TABLET BY MOUTH ONE TIME A DAY. NEEDS LABS 08/10/2014 09/10/2014 Inactive Endocet 10 mg-325 mg tablet RxNorm: 3102727 1-2 Tablet(s) PO Q4H 08/17/2014 Inactive PRN PAIN Duragesic 100 mcg/hr transdermal patch RxNorm: 499767 2 Application TD Q48H for pain 07/19/2014 09/17/2014 Inactive fluoxetine 40 mg capsule RxNorm: 549444 1 Capsule(s) PO QD 07/17/20 14 01/14/2015 Inactive TAKE ONE CAPSULE BY MOUTH EV JANKI MORNING fluoxetine 20 mg capsule RxNorm: 765820 1 Capsule(s) PO QD 07/17/20 14 01/14/2015 Inactive Spiriva with HandiHaler 18 mcg & inhalation capsules RxNorm: 998673 1 Capsule(s) INH QD 07/17/2014 08/26/2014 Inactive INHALE CONTENTS OF 1 CAPSULE(S) WITH HANDIHALER ONCE DAILY Zofran 4 mg tablet RxNorm: 761897 1 Tablet(s) PO Q4H prn nausea 07/25/2014 Inactive Synthroid 112 mcg tablet RxNorm: 833484 1 Tablet(s) PO QD 07/09/2014 07/09/2014 Inactive methocarbamol 750 mg tablet RxNorm: 890115 2 Tablet(s) PO TID as needed for muscle spasm 07/09/2014 09/06/2014 Inactive Synthroid 112 mcg tablet RxNorm: 613297 1 Tablet(s) PO QD - nee d labs 07/09/2014 08/07/2014 Inactive Medrol (Aníbal) 4 mg tablets in a dose pack RxNorm: 547584 6 Tablet(s) PO QD --then as directed 07/03/2014 07/08/2014 Inactive Tudorza Pressair 400 mcg/actuation breath activated RxNorm: 9390845 1 Puff(s) INH BID 07/03/2014 12/17/2014 Inactive cefdinir 300 mg capsule RxNorm: 726928 1 Capsule(s) PO BID 07/03/20 14 07/12/2014 Inactive Topamax 100 mg tablet RxNorm: 685465 Tablet(s) TAKE ONE TABLET BY MOUTH AT BEDTIME 07/02/2014 02/25/2015 Inactive Duragesic 100 mcg/hr transdermal patch RxNorm: 594389 2 Application TD Q48H for pain 06/25/2014 07/18/2014 Inactive Endocet 10 mg-325 mg tablet RxNorm: 3016219 1-2 Tablet(s) PO Q4H 07/18/2014 Inactive PRN PAIN metformin ER 500 mg tablet,extended release 24 hr RxNorm: 86 0975 1 Tablet(s) PO QD Needs labs 06/18/2014 07/01/2014 Inactive take one tablet by mouth every day Duragesic 100 mcg/hr transdermal patch RxNorm: 769344 2 Application TD Q48H for pain 05/22/2014 06/24/2014 Inactive Synthroid 112 mcg tablet RxNorm: 707355 1 Tablet(s) PO QD 05/22/2014 07/09/2014 Inactive Endocet 10 mg-325 mg tablet RxNorm: 0733603 1-2 Tablet(s) PO Q4H 06/20/2014 Inactive PRN PAIN Endocet 10 mg-325 mg tablet RxNorm: 3372092 1-2 Tablet(s) PO Q4H 05/21/2014 Inactive PRN PAIN Duragesic 100 mcg/hr transdermal patch RxNorm: 167247 2 Application TD Q48H for pain 04/25/2014 05/21/2014 Inactive Daliresp 500 mcg tablet RxNorm: 6305992 1 Tablet(s) PO QD 04/24/2014 08/13/2014 Inactive Symbicort 160 mcg-4.5 mcg/actuation HFA aerosol inhaler RxNo rm: 6518338 2 Puff(s) INH BID 04/24/2014 08/21/2014 Inactive INHALE 2 PUFFS O RALLY TWO TIMES A DAY metformin ER 500 mg tablet,extended release 24 hr RxNorm: 86 0975 1 Tablet(s) PO QD 04/24/2014 11/12/2014 Inactive TAKE ONE TABLET BY MOUTH EVERY DAY [AttnRPh:Saving Apply/Adjudicate RxGRP:LDMGRP RxBIN:[id number] RxPCN:2012 PCode:01 ID#:[id number]] Symbicort 160 mcg-4.5 mcg/actuation HFA aerosol inhaler RxNo rm: 3659569 2 Puff(s) INH BID 04/24/2014 11/12/2014 Inactive INHALE 2 PUFFS O RALLY TWO TIMES A DAY Premarin 0.9 mg tablet RxNorm: 861620 1 Tablet(s) PO QD 04/24/2014 Inactive TAKE ONE TABLET BY MOUTH EVERY DAY metformin ER 500 mg tablet,extended release 24 hr RxNorm: 86 0975 1 Tablet(s) PO QD Needs labs 04/24/2014 06/18/2014 Inactive TAKE ONE TABLET BY MOUTH EVERY DAY [AttnRPh:Saving Apply/Adjudicate RxGRP:LDMGRP RxBIN:[id number] RxPCN:2012 PCode:01 ID#:[id number]] gabapentin 800 mg tablet RxNorm: 837166 1 Tablet(s) PO QD 04/24/2014 10/04/2014 Inactive TAKE ONE TABLET BY MOUTH EVERY DAY Topamax 100 mg tablet RxNorm: 692654 1 Tablet(s) PO QHS 04/17/2014 Inactive Topamax 100 mg tablet RxNorm: 977662 TAKE ONE TABLET BY MOUTH A T BEDTIME 04/17/2014 07/01/2014 Inactive Tudorza Pressair 400 mcg/actuation breath activated RxNorm: 4961587 1 Puff(s) INH BID 04/11/2014 07/02/2014 Inactive Duragesic 100 mcg/hr transdermal patch RxNorm: 634433 2 Application TD Q48H for pain 03/27/2014 04/24/2014 Inactive Endocet 10 mg-325 mg tablet RxNorm: 5998371 1-2 Tablet(s) PO Q4H 04/24/2014 Inactive PRN PAIN Robaxin 750 mg tablet RxNorm: 771030 2 Tablet(s) PO TID as need ed for spasm 02/23/2014 03/28/2015 Inactive Duragesic 100 mcg/hr transdermal patch RxNorm: 972463 2 Application TD Q48H for pain 02/23/2014 No Stop Date Active Endocet 10 mg-325 mg tablet RxNorm: 2240513 1-2 Tablet(s) PO Q4H 03/23/2014 Inactive PRN PAIN Synthroid 112 mcg tablet RxNorm: 480857 1 Tablet(s) PO QD TAKE ONE TABLET BY MOUTH EVERY DAY 02/15/2014 05/22/2014 Inactive Zithromax 500 mg tablet RxNorm: 789435 1 Tablet(s) PO QD 01/30/2014 0 02/05/2014 Inactive Diflucan 100 mg tablet RxNorm: 642593 1 Tablet(s) PO QD 01/30/2014 Inactive prednisone 20 mg tablet RxNorm: 241328 1 Tablet(s) PO BID 01/30/2014 02/05/2014 Inactive fluoxetine 40 mg capsule RxNorm: 122482 1 Capsule(s) PO QD 01/23/20 14 07/16/2014 Inactive TAKE ONE CAPSULE BY MOUTH EV JANKI MORNING fluoxetine 40 mg capsule RxNorm: 307263 1 Capsule(s) PO QD 01/23/20 14 07/17/2014 Inactive TAKE ONE CAPSULE BY MOUTH EV JANKI MORNING cefdinir 300 mg capsule RxNorm: 132572 1 Capsule(s) PO BID 01/16/20 14 01/29/2014 Inactive Zithromax 500 mg tablet RxNorm: 625177 1 Tablet(s) PO QD 01/16/2014 0 01/22/2014 Inactive prednisone 20 mg tablet RxNorm: 228885 1 Tablet(s) PO BID 01/16/2014 01/22/2014 Inactive Spiriva with HandiHaler 18 mcg and inhalation capsules RxNor m: 278059 1 Capsule(s) INH QD 12/18/2013 07/17/2014 Inactive INHALE CONTENT S OF 1 CAPSULE(S) WITH HANDIHALER ONCE DAILY fluoxetine 20 mg capsule RxNorm: 457909 1 Capsule(s) PO QD 12/18/19 14 06/15/2014 Inactive Spiriva with HandiHaler 18 mcg & inhalation capsules RxNorm: 128780 1 Capsule(s) INH QD 12/18/2013 06/15/2014 Inactive INHALE CONTENTS OF 1 CAPSULE(S) WITH HANDIHALER ONCE DAILY fluoxetine 20 mg capsule RxNorm: 114960 1 Capsule(s) PO QD 12/18/19 14 07/17/2014 Inactive cefdinir 300 mg capsule RxNorm: 243905 2 Capsule(s) PO QD 12/12/2013 12/21/2013 Inactive Duragesic 100 mcg/hr transdermal patch RxNorm: 129637 2 Application TD Q48H for pain 12/08/2013 12/07/2013 Inactive Topamax 100 mg tablet RxNorm: 282879 1 Tablet(s) PO QHS 12/04/2013 Inactive Endocet 10 mg-325 mg tablet RxNorm: 0401357 1-2 Tablet(s) PO Q4H 12/26/2013 Inactive PRN PAIN Robaxin 750 mg tablet RxNorm: 112553 2 Tablet(s) PO TID as need ed for spasm 11/07/2013 01/05/2014 Inactive gabapentin 800 mg tablet RxNorm: 025115 1 Tablet(s) PO QD 10/16/2013 04/24/2014 Inactive TAKE ONE TABLET BY MOUTH EVERY DAY Symbicort 160 mcg-4.5 mcg/actuation HFA aerosol inhaler RxNo rm: 3903593 2 Puff(s) INH BID 10/16/2013 04/24/2014 Inactive INHALE 2 PUFFS O RALLY TWO TIMES A DAY Premarin 0.9 mg tablet RxNorm: 551187 1 Tablet(s) PO QD 10/16/2013 Inactive TAKE ONE TABLET BY MOUTH EVERY DAY metformin ER 500 mg tablet,extended release 24 hr RxNorm: 86 0975 1 Tablet(s) PO QD 10/16/2013 04/24/2014 Inactive TAKE ONE TABLET BY MOUTH EVERY DAY Daliresp 500 mcg tablet RxNorm: 8367275 1 Tablet(s) PO QD 10/16/2013 04/24/2014 Inactive Robaxin 750 mg tablet RxNorm: 512123 2 Tablet(s) PO TID as need ed for spasm 10/10/2013 11/06/2013 Inactive Duragesic 100 mcg/hr transdermal patch RxNorm: 766604 2 Application TD Q48H for pain 10/09/2013 No Stop Date Active Soma 350 mg tablet RxNorm: 624192 1 Tablet(s) PO TID 09/27/201310/09 Inactive TAKE ONE TABLET BY MOUTH THREE TIMES A D AY lactulose 10 gram/15 mL oral solution RxNorm: 630405 [address](s) PO QD 09/13/2013 03/07/2015 Inactive TAKE 1 TABLESPOON BY MOUTH ONCE DAILY Duragesic 100 mcg/hr transdermal patch RxNorm: 385519 2 Application TD Q48H for pain 09/06/2013 No Stop Date Active Endocet 10 mg-325 mg tablet RxNorm: 2480268 1-2 Tablet(s) PO Q4H 09/27/2013 Inactive PRN PAIN lancets 28 gauge RxNorm: Miscellaneous As needed for blo od glucose sticks 08/24/2013 No Stop Date Active 16.2 mg-0.1037 mg-0.0194 mg tablet RxNorm: 4951080 Tablet(s) PO PRN for gas and cramping 08/24/2013 01/19/2017 Inactive TAKE TWO TABLET S BY MOUTH THREE TIMES A DAY NEEDED FOR GAS AND CRAMPING Topamax 100 mg tablet RxNorm: 635063 1 Tablet(s) PO QHS 07/31/2013 Inactive Diflucan 100 mg tablet RxNorm: 050817 1 Tablet(s) PO QD 07/27/2013 Inactive cefdinir 300 mg capsule RxNorm: 568748 1 Capsule(s) PO BID 07/26/20 13 08/08/2013 Inactive Daliresp 500 mcg tablet RxNorm: 8795906 1 Tablet(s) PO QD 07/25/2013 10/15/2013 Inactive fluoxetine 40 mg capsule RxNorm: 268061 1 Capsule(s) PO QD 07/25/20 13 01/22/2014 Inactive TAKE ONE CAPSULE BY MOUTH EV JANKI MORNING Senokot-S 8.6 mg-50 mg tablet RxNorm: 8173875 1 Tablet(s) PO BID 10/25/2013 Inactive doxycycline hyclate 100 mg capsule RxNorm: 3395930 1 Capsule(s) PO BID 06/28/2013 07/07/2013 Inactive prednisone 20 mg tablet RxNorm: 656960 1 Tablet(s) PO BID 06/28/2013 07/04/2013 Inactive Zofran 4 mg tablet RxNorm: 538513 1 Tablet(s) PO Q4H prn nausea 03/201307/05/2013 Inactive Spiriva with HandiHaler 18 mcg & inhalation capsules RxNorm: 050075 1 Capsule(s) INH QD 06/26/2013 12/18/2013 Inactive INHALE CONTENTS OF 1 CAPSULE(S) WITH HANDIHALER ONCE DAILY Synthroid 112 mcg tablet RxNorm: 315842 1 Tablet(s) PO QD TAKE ONE TABLET BY MOUTH EVERY DAY 06/19/2013 02/15/2014 Inactive fluoxetine 20 mg capsule RxNorm: 612541 1 Capsule(s) PO QD 06/19/20 13 12/18/2013 Inactive Ventolin HFA 90 mcg/actuation Aerosol Inhaler RxNorm: 5748832 2 Puff(s) INH Q4H 06/05/2013 No Stop Date Active prn Soma 350 mg tablet RxNorm: 243406 1 Tablet(s) PO TID 06/05/201307/04 Inactive TAKE ONE TABLET BY MOUTH THREE TIMES A D AY prednisone 20 mg tablet RxNorm: 459422 1 Tablet(s) PO QD 05/31/2013 0 06/06/2013 Inactive Topamax 100 mg tablet RxNorm: 606153 1 Tablet(s) PO QHS 05/22/2013 Inactive Levaquin 500 mg tablet RxNorm: 945040 1 Tablet(s) PO QD 05/03/2013 Inactive Diflucan 100 mg tablet RxNorm: 764932 1 Tablet(s) PO QD 05/03/2013 Inactive Daliresp 500 mcg tablet RxNorm: 5615386 1 Tablet(s) PO QD 05/01/2013 07/24/2013 Inactive Daliresp 500 mcg tablet RxNorm: 0957641 1 Tablet(s) PO QD 05/01/2013 04/30/2013 Inactive gabapentin 800 mg tablet RxNorm: 999338 1 Tablet(s) PO QD 04/10/2013 10/06/2013 Inactive TAKE ONE TABLET BY MOUTH EVERY DAY metformin ER 500 mg tablet,extended release 24 hr RxNorm: 86 0977 1 Tablet(s) PO QD 04/10/2013 10/06/2013 Inactive TAKE ONE TABLET BY MOUTH EVERY DAY Premarin 0.9 mg tablet RxNorm: 187923 1 Tablet(s) PO QD 04/10/2013 Inactive TAKE ONE TABLET BY MOUTH EVERY DAY Symbicort 160 mcg-4.5 mcg/actuation HFA aerosol inhaler RxNo rm: 9702252 2 Puff(s) INH BID 04/10/2013 10/06/2013 Inactive INHALE 2 PUFFS O RALLY TWO TIMES A DAY Synthroid 112 mcg tablet RxNorm: 768384 1 Tablet(s) PO QD TAKE ONE TABLET BY MOUTH EVERY DAY 04/10/2013 06/18/2013 Inactive Ventolin HFA 90 mcg/actuation Aerosol Inhaler RxNorm: 933870 2 Puff(s) INH Q4H 04/10/2013 No Stop Date Active prn fentanyl 100 mcg/hr transdermal patch RxNorm: 206611 1 Unit Dos e TD QD 04/03/2013 05/02/2013 Inactive Endocet 10 mg-325 mg tablet RxNorm: 1242322 1-2 Tablet(s) PO Q4H 05/02/2013 Inactive PRN PAIN Topamax 100 mg tablet RxNorm: 594857 1 Tablet(s) PO QHS 03/13/2013 Inactive Reglan 10 mg tablet RxNorm: 580830 1 Tablet(s) PO QID b efore meals and at bedtime 03/13/2013 04/09/2015 Inactive fluoxetine 20 mg capsule RxNorm: 702360 1 Capsule(s) PO QD 02/28/20 13 05/27/2013 Inactive Ventolin HFA 90 mcg/actuation Aerosol Inhaler RxNorm: 904414 2 Puff(s) INH Q4H 02/13/2013 No Stop Date Active prn fluoxetine 40 mg capsule RxNorm: 984597 1 Capsule(s) PO QD 01/31/20 13 07/24/2013 Inactive TAKE ONE CAPSULE BY MOUTH EV JANKI MORNING Soma 350 mg tablet RxNorm: 927228 1 Tablet(s) PO TID 01/20/201302/18 Inactive TAKE ONE TABLET BY MOUTH THREE TIMES A D AY Endocet 10 mg-325 mg tablet RxNorm: 4230343 1-2 Tablet(s) PO Q4H 02/06/2013 Inactive PRN PAIN MS Contin 200 mg tablet,extended release RxNorm: 325579 1 Table t(s) PO BID 01/18/2013 02/06/2013 Inactive Ventolin HFA 90 mcg/actuation Aerosol Inhaler RxNorm: 102735 2 Puff(s) INH Q4H 01/04/2013 No Stop Date Active prn Spiriva with HandiHaler 18 mcg & inhalation capsules RxNorm: 010939 1 Capsule(s) INH QD 12/29/2012 06/25/2013 Inactive INHALE CONTENTS OF 1 CAPSULE(S) WITH HANDIHALER ONCE DAILY Spiriva with HandiHaler 18 mcg & inhalation capsules RxNorm: 251803 1 Capsule(s) INH QD 12/26/2012 12/28/2012 Inactive INHALE CONTENTS OF 1 CAPSULE(S) WITH HANDIHALER ONCE DAILY Synthroid 112 mcg tablet RxNorm: 797952 Tablet(s) PO TA KE ONE TABLET BY MOUTH EVERY DAY 12/26/2012 04/09/2013 Inactive Endocet 10 mg-325 mg tablet RxNorm: 2784728 1-2 Tablet(s) PO Q4H 01/17/2013 Inactive PRN PAIN MS Contin 200 mg tablet,extended release RxNorm: 740365 1 Table t(s) PO BID 12/21/2012 01/17/2013 Inactive fluoxetine 20 mg capsule RxNorm: 312981 1 Capsule(s) PO QD 12/06/19 13 02/26/2013 Inactive Synthroid 112 mcg tablet RxNorm: 869554 1 Tablet(s) PO QD 12/06/2012 02/12/2019 Inactive TAKE ONE TABLET BY MOUTH EVERY DAY Ventolin HFA 90 mcg/actuation Aerosol Inhaler RxNorm: 534052 2 Puff(s) INH Q4H 12/06/2012 No Stop Date Active prn Reglan 10 mg tablet RxNorm: 330416 1 Tablet(s) PO QID b efore meals and at bedtime 11/24/2012 03/12/2013 Inactive Topamax 100 mg tablet RxNorm: 008641 1 Tablet(s) PO QHS 11/16/2012 Inactive Ventolin HFA 90 mcg/actuation Aerosol Inhaler RxNorm: 883607 2 Puff(s) INH Q4H 11/09/2012 No Stop Date Active prn gabapentin 800 mg tablet RxNorm: 863431 1 Tablet(s) PO QD 10/27/2012 04/09/2013 Inactive TAKE ONE TABLET BY MOUTH EVERY DAY metformin ER 500 mg tablet,extended release 24 hr RxNorm: 86 0977 1 Tablet(s) PO QD 10/27/2012 04/09/2013 Inactive TAKE ONE TABLET BY MOUTH EVERY DAY Symbicort 160 mcg-4.5 mcg/actuation HFA Aerosol Inhaler RxNo rm: 6285262 2 Puff(s) INH BID 10/27/2012 04/09/2013 Inactive INHALE 2 PUFFS O RALLY TWO TIMES A DAY Premarin 0.9 mg tablet RxNorm: 013124 1 Tablet(s) PO QD 10/27/2012 Inactive TAKE ONE TABLET BY MOUTH EVERY DAY Endocet 10 mg-325 mg tablet RxNorm: 8836051 1-2 Tablet(s) PO Q4H 11/24/2012 Inactive PRN PAIN MS Contin 200 mg tablet,extended release RxNorm: 142963 1 Table t(s) PO BID 10/26/2012 11/24/2012 Inactive Soma 350 mg tablet RxNorm: 861858 1 Tablet(s) PO TID 10/04/201211/02 Inactive TAKE ONE TABLET BY MOUTH THREE TIMES A D AY Ventolin HFA 90 mcg/actuation Aerosol Inhaler RxNorm: 847011 2 Puff(s) INH Q4H 10/03/2012 No Stop Date Active prn Daliresp 500 mcg tablet RxNorm: 1811490 1 Tablet(s) PO QD 09/28/2012 09/27/2012 Inactive Daliresp 500 mcg tablet RxNorm: 8168401 1 Tablet(s) PO QD 09/28/2012 04/25/2013 Inactive fluoxetine 20 mg capsule RxNorm: 656684 1 Capsule(s) PO QD 09/05/2012/06/2012 Inactive Topamax 50 mg tablet RxNorm: 770393 Tablet(s) PO for 1w k then 1 po q HS for 1wk then 2 po q HS 08/29/2012 09/27/2012 Inactive TAKE 1/2 TABLET BY MOUTH AT BEDTIME FOR 1 WEEK, THEN 1 TABLET AT BEDTIME FOR 1 WEEK, THEN 2 TABLETS AT BEDTIME Topamax 100 mg tablet RxNorm: 433312 1 Tablet(s) PO QHS 08/29/2012 Inactive Ventolin HFA 90 mcg/actuation Aerosol Inhaler RxNorm: 261771 2 Puff(s) INH Q4H 08/19/2012 No Stop Date Active prn Ventolin HFA 90 mcg/actuation Aerosol Inhaler RxNorm: 217799 2 Puff(s) INH Q4H 08/15/2012 No Stop Date Active prn Synthroid 112 mcg tablet RxNorm: 500871 1 Tablet(s) PO QD 08/10/2012 11/07/2012 Inactive TAKE ONE TABLET BY MOUTH EVERY DAY Synthroid 112 mcg tablet RxNorm: 904775 1 Tablet(s) PO QD 08/01/2012 08/09/2012 Inactive TAKE ONE TABLET BY MOUTH EVERY DAY Reglan 10 mg tablet RxNorm: 212806 1 Tablet(s) PO QID b efore meals and at bedtime 08/01/2012 11/23/2012 Inactive fluoxetine 40 mg capsule RxNorm: 981816 1 Capsule(s) PO QD 08/01/2001/27/2013 Inactive TAKE ONE CAPSULE BY MOUTH EV JANKI MORNING Ventolin HFA 90 mcg/actuation Aerosol Inhaler RxNorm: 929970 2 Puff(s) INH Q4H 08/01/2012 No Stop Date Active prn Soma 350 mg tablet RxNorm: 612634 1 Tablet(s) PO TID 07/20/201208/18 Inactive TAKE ONE TABLET BY MOUTH THREE TIMES A D AY Spiriva with HandiHaler 18 mcg & inhalation capsules RxNorm: 067796 1 Capsule(s) INH 07/01/2012 12/25/2012 Inactive INHALE CONTENTS OF 1 CAPSULE(S) WITH HANDIHALER ONCE DAILY Zithromax 250 mg Tab RxNorm: 050170 2 Tablet(s) PO QD 06/28/201206/22 Inactive MS Contin 200 mg tablet,extended release RxNorm: 194295 1 Table t(s) PO BID 06/28/2012 07/27/2012 Inactive Endocet 10 mg-325 mg tablet RxNorm: 6460595 1-2 Tablet(s) PO Q4H 07/27/2012 Inactive PRN PAIN Topamax 100 mg tablet RxNorm: 753488 1 Tablet(s) PO QHS 06/28/2012 Inactive 16.2 mg-0.1037 mg-0.0194 mg tablet RxNorm: 7381368 Tablet(s) PO PRN for gas and cramping 06/08/2012 08/23/2013 Inactive TAKE TWO TABLET S BY MOUTH THREE TIMES A DAY NEEDED FOR GAS AND CRAMPING Ventolin HFA 90 mcg/actuation Aerosol Inhaler RxNorm: 342322 2 Puff(s) INH Q4H 05/23/2012 No Stop Date Active prn Ventolin HFA 90 mcg/actuation Aerosol Inhaler RxNorm: 114163 2 Puff(s) INH Q4H 05/11/2012 No Stop Date Active prn Synthroid 112 mcg tablet RxNorm: 703685 1 Tablet(s) PO QD 05/09/2012 07/31/2012 Inactive TAKE ONE TABLET BY MOUTH EVERY DAY gabapentin 800 mg tablet RxNorm: 839202 1 Tablet(s) PO QD 05/09/2012 10/26/2012 Inactive TAKE ONE TABLET BY MOUTH EVERY DAY fluoxetine 40 mg capsule RxNorm: 804451 1 Capsule(s) PO QD 05/09/2007/31/2012 Inactive TAKE ONE CAPSULE BY MOUTH EV JANKI MORNING metformin ER 500 mg tablet,extended release 24 hr RxNorm: 86 0977 1 Tablet(s) PO QD 05/09/2012 10/26/2012 Inactive TAKE ONE TABLET BY MOUTH EVERY DAY Premarin 0.9 mg tablet RxNorm: 146609 1 Tablet(s) PO QD 05/09/2012 Inactive TAKE ONE TABLET BY MOUTH EVERY DAY Symbicort 160 mcg-4.5 mcg/actuation HFA Aerosol Inhaler RxNo rm: 0557290 2 Puff(s) INH BID 05/09/2012 10/26/2012 Inactive INHALE 2 PUFFS O RALLY TWO TIMES A DAY Endocet 10 mg-325 mg Tab RxNorm: 0429874 1-2 Tablet(s) PO Q4H 04/2705/26/2012 Inactive PRN PAIN MS Contin 200 mg Tab RxNorm: 507696 1 Tablet(s) PO BID 04/26/201202/2012 Inactive Ventolin HFA 90 mcg/actuation Aerosol Inhaler RxNorm: 792897 2 Puff(s) INH Q4H 04/25/2012 05/10/2012 Inactive prn Soma 350 mg tablet RxNorm: 161771 2 Tablet(s) PO TID 04/19/201207/19 Inactive TAKE ONE TABLET BY MOUTH THREE TIMES A D AY Ventolin HFA 90 mcg/actuation Aerosol Inhaler RxNorm: 273097 2 Puff(s) INH Q4H 04/12/2012 04/24/2012 Inactive prn Reglan 10 mg tablet RxNorm: 633307 1 Tablet(s) PO QID b efore meals and at bedtime 04/11/2012 07/31/2012 Inactive MS Contin 200 mg Tab RxNorm: 297682 1 Tablet(s) PO BID 03/30/201202/2012 Inactive Endocet 10 mg-325 mg Tab RxNorm: 8603698 1-2 Tablet(s) PO Q4H 03/3004/26/2012 Inactive PRN PAIN MS Contin 200 mg Tab RxNorm: 100736 1 Tablet(s) PO BID 03/02/201206/2012 Inactive Endocet 10 mg-325 mg Tab RxNorm: 5352820 1-2 Tablet(s) PO Q4H 03/0203/29/2012 Inactive PRN PAIN Daliresp 500 mcg tablet RxNorm: 0379226 1 Tablet(s) PO QD 03/01/2012 09/28/2012 Inactive MS Contin 200 mg Tab RxNorm: 189631 1 Tablet(s) PO BID 02/02/201208/2012 Inactive Endocet 10 mg-325 mg Tab RxNorm: 5758738 1-2 Tablet(s) PO Q4H 02/0103/01/2012 Inactive PRN PAIN fluoxetine 40 mg capsule RxNorm: 773539 1 Capsule(s) PO QD 02/02/2008/01/2012 Inactive TAKE ONE CAPSULE BY MOUTH EV JANKI MORNING Synthroid 112 mcg Tab RxNorm: 302466 1 Tablet(s) PO QD 01/18/2012 Inactive TAKE ONE TABLET BY MOUTH EVERY DAY lactulose 10 gram/15 mL oral solution RxNorm: 442363 [address]s) PO QD 01/18/2012 No Stop Date Active TAKE 1 TABLESPOON BY MOUTH ONCE DAILY Ventolin HFA 90 mcg/actuation Aerosol Inhaler RxNorm: 634577 2 Puff(s) INH Q4H 01/18/2012 04/11/2012 Inactive prn MS Contin 200 mg Tab RxNorm: 981916 1 Tablet(s) PO BID 01/05/201210/2012 Inactive Endocet 10 mg-325 mg Tab RxNorm: 2026199 1-2 Tablet(s) PO Q4H 01/0502/01/2012 Inactive PRN PAIN ProAir HFA 90 mcg/Actuation Aerosol Inhaler RxNorm: 610878 2 Pu ff(s) INH Q4H 12/21/2011 No Stop Date Active prn for wheezing or shortness of breath Spiriva with HandiHaler 18 mcg & inhalation Caps RxNorm: 580 261 1 Capsule(s) INH 12/21/2011 06/30/2012 Inactive INHALE CONTENTS OF 1 CAPSULE(S) WITH HANDIHALER ONCE DAILY Reglan 10 mg Tab RxNorm: 222030 1 Tablet(s) PO QID before meals and at bedtime 12/21/2011 04/10/2012 Inactive Synthroid 112 mcg Tab RxNorm: 647710 1 Tablet(s) PO QD 12/21/2011 Inactive TAKE ONE TABLET BY MOUTH EVERY DAY Endocet 10 mg-325 mg Tab RxNorm: 7616863 1-2 Tablet(s) PO Q4H 11/2512/24/2011 Inactive PRN PAIN MS Contin 200 mg Tab RxNorm: 763177 1 Tablet(s) PO BID 11/25/201112/2011 Inactive lactulose 10 gram/15 mL Oral Soln RxNorm: 656579 Milliliter(s) PO 1 No Stop Date Active TAKE 1 TABLESPOON BY MOUTH O NCE DAILY lactulose 10 gram/15 mL Oral Soln RxNorm: 927557 Milliliter(s) PO 1 12/12/2010 11/20/2011 Inactive TAKE 1 TABLESPOON BY MOUTH O NCE DAILY Premarin 0.9 mg Tab RxNorm: 700399 1 Tablet(s) PO QD 10/12/201105/08 Inactive TAKE ONE TABLET BY MOUTH EVERY DAY fluoxetine 20 mg capsule RxNorm: 076862 1 Capsule(s) PO QD 10/12/20 11 09/05/2012 Inactive TAKE ONE CAPSULE BY MOUTH EV JANKI DAY Synthroid 112 mcg Tab RxNorm: 568290 1 Tablet(s) PO QD 10/12/2011 Inactive TAKE ONE TABLET BY MOUTH EVERY DAY metformin ER 500 mg 24 hr Tab RxNorm: 454174 1 Tablet(s) PO QD 09/2311/10/2011 Inactive TAKE ONE TABLET BY MOUTH GLYNN RY DAY Synthroid 112 mcg Tab RxNorm: 606276 1 Tablet(s) PO QD 10/12/2011 Inactive TAKE ONE TABLET BY MOUTH EVERY DAY metformin ER 500 mg 24 hr Tab RxNorm: 847016 1 Tablet(s) PO QD 09/2310/11/2011 Inactive TAKE ONE TABLET BY MOUTH GLYNN RY DAY Prevacid 30 mg Cap RxNorm: 429526 Capsule(s) PO 10/12/2011 01/25/2012 Inactive TAKE ONE CAPSULE BY MOUTH EVERY DAY Symbicort 160 mcg-4.5 mcg/actuation HFA Aerosol Inhaler RxNo rm: 3722075 2 Puff(s) INH BID 10/12/2011 05/08/2012 Inactive INHALE 2 PUFFS O RALLY TWO TIMES A DAY gabapentin 800 mg Tab RxNorm: 261401 1 Tablet(s) PO QD 10/12/2011 Inactive TAKE ONE TABLET BY MOUTH EVERY DAY MS Contin 200 mg Tab RxNorm: 265084 1 Tablet(s) PO BID 09/23/201111/2010 Inactive Endocet 10 mg-325 mg Tab RxNorm: 2828740 1-2 Tablet(s) PO Q4H 09/2310/22/2011 Inactive PRN PAIN Endocet 10 mg-325 mg Tab RxNorm: 8996026 1-2 Tablet(s) PO Q4H 08/2109/19/2011 Inactive PRN PAIN MS Contin 200 mg Tab RxNorm: 446214 1 Tablet(s) PO BID 08/21/2011 Inactive Diflucan 100 mg Tab RxNorm: 603902 1 Tablet(s) PO QD 08/10/201108/16 Inactive cefdinir 300 mg Cap RxNorm: 005858 2 Capsule(s) PO QD 08/10/201107/24 Inactive Reglan 10 mg Tab RxNorm: 488712 1 Tablet(s) PO AC & HS 07/15/2011 Inactive Endocet 10 mg-325 mg Tab RxNorm: 7817599 1-2 Tablet(s) PO Q4H 07/1508/13/2011 Inactive PRN PAIN One Touch Ultra Test strips RxNorm: Miscellaneous BID 06/11/2011 1 01/16/2014 Inactive TEST TWO TIMES A DAY lactulose 10 gram/15 mL Oral Soln RxNorm: 032515 Milliliter(s) PO 0 06/10/2011 10/11/2011 Inactive TAKE 1 TABLESPOON BY MOUTH O NCE DAILY Chantix Continuing Month Aníbal 1 mg Tab RxNorm: 956066 Tablet(s) PO 0 06/10/2011 11/02/2011 Inactive TAKE DIRECTED - PER [employer] GE INSTRUCTIONS fluoxetine 40 mg Cap RxNorm: 851804 Capsule(s) PO 06/10/2011 02/02/20 12 Inactive TAKE ONE CAPSULE BY MOUTH EVERY MORNING Chantix Continuing Month Aníbal 1 mg Tab RxNorm: 786427 Ta blet(s) PO TAKE DIRECTED - PER PACKAGE INSTRUCTIONS 05/13/2011 06/09/2011 Inactive Soma 350 mg Tab RxNorm: 165582 Tablet(s) PO TAKE ON E TABLET BY MOUTH THREE TIMES A DAY 05/13/2011 04/18/2012 Inactive Chantix Continuing Month Aníbal 1 mg Tab RxNorm: 638456 Ta blet(s) PO as directed per package instructions. 04/22/2011 05/12/2011 Inactive Symbicort 160 mcg-4.5 mcg/Actuation HFA Aerosol Inhaler RxNo rm: 6344060 HFA Aerosol Inhaler INH INHALE 2 PUFFS ORALLY TWO TIMES A DAY 04/13/2011 Inactive Synthroid 112 mcg Tab RxNorm: 055359 Tablet(s) PO TAKE ONE TABLET BY MOUTH EVERY DAY 04/13/2011 10/12/2011 Inactive Premarin 0.9 mg Tab RxNorm: 643741 Tablet(s) PO TAKE ON E TABLET BY MOUTH EVERY DAY 04/13/2011 10/12/2011 Inactive gabapentin 800 mg Tab RxNorm: 037846 Tablet(s) PO TAKE ONE TABLET BY MOUTH EVERY DAY 04/13/2011 10/12/2011 Inactive Prevacid 30 mg Cap RxNorm: 383112 1 Capsule(s) PO QD 04/13/201110/11 Inactive Spiriva with HandiHaler 18 mcg & inhalation Caps RxNorm: 580 261 Capsule(s) INH INHALE CONTENTS OF 1 CAPSULE(S) WITH HANDIHALER ONCE DAILY 04/13/2011 12/21/2011 Inactive metformin ER 500 mg 24 hr Tab RxNorm: 442631 Tablet(s) PO TAKE ONE TABLET BY MOUTH EVERY DAY 04/13/2011 10/12/2011 Inactive Soma 350 mg Tab RxNorm: 276649 1 Tablet(s) PO QID 03/30/2011 02/13/20 19 Inactive fluoxetine 20 mg Cap RxNorm: 457588 Capsule(s) PO TAKE ONE CAPSULE BY MOUTH EVERY DAY 03/25/2011 10/12/2011 Inactive cefdinir 300 mg Cap RxNorm: 354198 2 Capsule(s) PO QD 03/19/201105/2011 Inactive 16.2 mg-0.1037 mg-0.0194 mg Tab RxNorm: 5666766 2 Tablet(s) PO TID PRN for gas and cramping 03/16/2011 07/13/2011 Inactive Soma 350 mg Tab RxNorm: 800262 2 Tablet(s) PO TID 03/16/2011 03/29/20 11 Inactive Chantix Starting Month Aníbal 0.5 mg (11)-1 mg (3x14) Tab s in a Dose Pack RxNorm: 170781 Tablet(s) PO as directed 03/02/2011 No Stop Date Active diazepam 10 mg Tab RxNorm: 293785 1 Tablet(s) PO BID 02/10/201101/19 Inactive Zofran 4 mg tablet RxNorm: 032603 1 Tablet(s) PO Q4H prn nausea 02/16/2011 Inactive Diflucan 100 mg Tab RxNorm: 112044 1 Tablet(s) PO QD 01/18/201101/24 Inactive Premarin 0.625 mg/g Vaginal Cream RxNorm: 852164 VAG In sert 1gm vaginally at bedtime 3 times weekly 01/18/2011 02/12/2019 Inactive loratadine 10 mg Tab RxNorm: 7268895 1 Tablet(s) PO QD 12/17/201003/2012 Inactive Spiriva with HandiHaler 18 mcg & inhalation Caps RxNorm: 580 261 1 Capsule(s) INH QD 12/17/2010 04/12/2011 Inactive Diflucan 100 mg Tab RxNorm: 685329 1 Tablet(s) PO QD 12/17/201012/23 Inactive diazepam 10 mg Tab RxNorm: 202884 1 Tablet(s) PO BID and PRN 201002/12/2019 Inactive One Touch Ultra Test Strips RxNorm: InVt BID Zainab t blood sugar at least twice daily. 11/11/2010 06/11/2011 Inactive fluoxetine 40 mg Cap RxNorm: 064857 1 Capsule(s) PO QAM 11/11/2010 Inactive diazepam 10 mg Tab RxNorm: 133260 1 Tablet(s) PO BID and PRN 200911/12/2010 Inactive Bactrim DS 800 mg-160 mg Tab RxNorm: 703981 1 Tablet(s) PO BID 09/2210/15/2010 Inactive fluoxetine 20 mg Cap RxNorm: 710815 1 Capsule(s) PO QD 10/02/201008/2011 Inactive Bactrim DS 800 mg-160 mg Tab RxNorm: 434515 1 Tablet(s) PO BID 01/201010/03/2010 Inactive Zofran 4 mg Tab RxNorm: 350215 1 Tablet(s) PO Q4H prn nausea 200910/16/2010 Inactive 16.2 mg-0.1037 mg-0.0194 mg Tab RxNorm: 6867830 2 Tablet(s) PO TID PRN for gas and cramping 09/17/2010 10/21/2010 Inactive Gabapentin 800 mg Tab RxNorm: 659504 1 Tablet(s) PO QD 09/16/2010 Inactive ProAir HFA 90 mcg/Actuation Aerosol Inhaler RxNorm: 407349 2 Puff(s) INH Q4H prn shortness of breath 09/15/2010 12/13/2010 Inactive gabapentin 800 mg Tab RxNorm: 756003 1 Tablet(s) PO QD 09/15/2010 Inactive Prevacid 30 mg Cap RxNorm: 914111 1 Capsule(s) PO QD 09/15/201004/12 Inactive loratadine 10 mg Tab RxNorm: 9546259 1 Tablet(s) PO QD 09/15/2010 Inactive Premarin 0.9 mg Tab RxNorm: 847053 1 Tablet(s) PO QD 09/15/201004/12 Inactive Synthroid 112 mcg Tab RxNorm: 303680 1 Tablet(s) PO QD 09/15/2010 Inactive metformin ER 500 mg 24 hr Tab RxNorm: 172684 1 Tablet(s) PO QD 08/2304/12/2011 Inactive Symbicort 160 mcg-4.5 mcg/Actuation Inhalation HFA Aer osol Inhaler RxNorm: 3801611 2 Puff(s) INH BID 09/15/2010 04/12/2011 Inactive diazepam 10 mg Tab RxNorm: 616439 1 Tablet(s) PO BID and PRN 200910/13/2010 Inactive Phentermine 37.5 mg Cap RxNorm: 761333 1 Capsule(s) PO QD 09/02/2010 11/02/2011 Inactive ProAir HFA 90 mcg/Actuation Aerosol Inhaler RxNorm: 644635 2 Puff(s) INH Q4H prn shortness of breath 08/07/2010 No Stop Date Active Premarin 0.9 mg Tab RxNorm: 712882 1 Tablet(s) PO QD 08/07/201009/14 Inactive Loratadine 10 mg Tab RxNorm: 8111650 1 Tablet(s) PO QD 08/07/2010 Inactive Lactulose 10 gram/15 mL Oral Soln RxNorm: 649468 1 Unit Dose PO QD 08/07/2010 02/12/2019 Inactive Zofran 4 mg Tab RxNorm: 516207 1 Tablet(s) PO Q4H prn nausea 2009 No Stop Date Active Gabapentin 800 mg Tab RxNorm: 356687 1 Tablet(s) PO QD 08/07/2010 Inactive Synthroid 112 mcg Tab RxNorm: 984931 1 Tablet(s) PO QD 08/07/2010 Inactive Metformin ER 500 mg 24 hr Tab RxNorm: 246661 1 Tablet(s) PO QD 07/2309/14/2010 Inactive Vitamin D 1,000 unit Tab RxNorm: 250755 1 Tablet(s) PO TID 08/07/2002/12/2019 Inactive Symbicort 160 mcg-4.5 mcg/Actuation Inhalation HFA Aer osol Inhaler RxNorm: 4832273 2 Puff(s) INH BID 08/07/2010 09/14/2010 Inactive Prevacid 30 mg Cap RxNorm: 459045 1 Capsule(s) PO QD 08/07/201009/14 Inactive Metformin ER 500 mg 24 hr Tab RxNorm: 209252 1 Tablet(s) PO QD 06/2308/06/2010 Inactive Vitamin D 1,000 unit Tab RxNorm: 062803 1 Tablet(s) PO TID 07/14/2008/06/2010 Inactive Synthroid 112 mcg Tab RxNorm: 406282 1 Tablet(s) PO QD 07/14/2010 Inactive Lactulose 10 gram/15 mL Oral Soln RxNorm: 569689 1 Unit Dose PO QD 07/14/2010 08/06/2010 Inactive Levaquin 500 mg Tab RxNorm: 844458 1 Tablet(s) PO QD 07/14/201007/27 Inactive Premarin 0.9 mg Tab RxNorm: 450360 1 Tablet(s) PO QD 07/14/201008/06 Inactive ProAir HFA 90 mcg/Actuation Aerosol Inhaler RxNorm: 970408 2 Puff(s) INH Q4H prn shortness of breath 07/14/2010 No Stop Date Active Prevacid 30 mg Cap RxNorm: 725076 1 Capsule(s) PO QD 07/14/201008/06 Inactive Zofran 4 mg Tab RxNorm: 619909 1 Tablet(s) PO Q4H prn nausea 2009 No Stop Date Active Symbicort 160 mcg-4.5 mcg/Actuation Inhalation HFA Aer osol Inhaler RxNorm: 6431544 2 Puff(s) INH BID 07/14/2010 08/06/2010 Inactive Loratadine 10 mg Tab RxNorm: 3804547 1 Tablet(s) PO QD 07/14/2010 Inactive Gabapentin 800 mg Tab RxNorm: 523608 1 Tablet(s) PO QD 07/14/2010 Inactive Metformin ER 500 mg 24 hr Tab RxNorm: 656711 1 Tablet(s) PO 010 07/13/2010 Inactive Diazepam 10 mg Tab RxNorm: 775584 1 Tablet(s) PO BID and PRN 200909/06/2010 Inactive Premarin 0.9 mg Tab RxNorm: 564194 1 Tablet(s) PO QD 06/09/201007/13 Inactive Zofran 4 mg Tab RxNorm: 963699 1 Tablet(s) PO Q4H prn nausea 2009 No Stop Date Active ProAir HFA 90 mcg/Actuation Aerosol Inhaler RxNorm: 981930 2 Puff(s) INH Q4H prn shortness of breath 06/09/2010 No Stop Date Active Gabapentin 800 mg Tab RxNorm: 476153 1 Tablet(s) PO QD 06/09/2010 Inactive Loratadine 10 mg Tab RxNorm: 2045973 1 Tablet(s) PO QD 06/09/2010 Inactive Lactulose 10 gram/15 mL Oral Soln RxNorm: 447886 1 Unit Dose PO QD 06/09/2010 07/13/2010 Inactive Prevacid 30 mg Cap RxNorm: 502258 1 Capsule(s) PO QD 06/09/201007/13 Inactive Synthroid 112 mcg Tab RxNorm: 078027 1 Tablet(s) PO QD 06/09/2010 Inactive Symbicort 160 mcg-4.5 mcg/Actuation Inhalation HFA Aer osol Inhaler RxNorm: 1146558 2 Puff(s) INH BID 06/09/2010 07/13/2010 Inactive Omnicef 300 mg Cap RxNorm: 721323 2 Capsule(s) PO QD 05/07/201005/20 Inactive Metformin 500 mg Tab RxNorm: 571601 1 Tablet(s) PO QD 05/06/201005/22 Inactive ProAir HFA 90 mcg/Actuation Aerosol Inhaler RxNorm: 064005 2 Puff(s) INH Q4H prn shortness of breath 05/06/2010 No Stop Date Active lactulose 10 gram/15 mL Oral Soln RxNorm: 301682 1 Unit Dose PO QD 05/06/2010 06/10/2011 Inactive Loratadine 10 mg Tab RxNorm: 6670353 1 Tablet(s) PO QD 05/06/2010 Inactive Synthroid 112 mcg Tab RxNorm: 349179 1 Tablet(s) PO QD 05/06/2010 Inactive Symbicort 160 mcg-4.5 mcg/Actuation Inhalation HFA Aer osol Inhaler RxNorm: 3786881 2 Puff(s) INH BID 05/06/2010 06/08/2010 Inactive Gabapentin 800 mg Tab RxNorm: 375435 1 Tablet(s) PO QD 05/06/2010 Inactive 16.2 mg-0.1037 mg-0.0194 mg Tab RxNorm: 8818701 2 Tablet(s) PO TID PRN for gas and cramping 05/06/2010 05/12/2010 Inactive Zofran 4 mg Tab RxNorm: 051883 1 Tablet(s) PO Q4H prn nausea 200904/13/2010 Inactive MS Contin 60 mg Tab RxNorm: 920469 3 Tablet(s) PO BID 04/09/201004/22 Inactive Soma 350 mg Tab RxNorm: 298797 2 Tablet(s) PO TID 04/09/2010 05/08/20 10 Inactive Symbicort 160 mcg-4.5 mcg/Actuation Inhalation HFA Aer osol Inhaler RxNorm: 3015971 2 Puff(s) INH BID 04/08/2010 05/05/2010 Inactive Doxycycline 100 mg Cap RxNorm: 6162643 1 Capsule(s) PO BID 04/08/20 10 04/17/2010 Inactive Triamterene-Hydrochlorothiazide 37.5 mg-25 mg Cap RxNorm: 19 8316 1 Capsule(s) PO QAM 04/08/2010 09/04/2010 Inactive fluoxetine 40 mg Cap RxNorm: 965933 1 Capsule(s) PO QAM 04/08/2010 Inactive Morphine SR 120 mg multiphase 24 hr Cap RxNorm: 916074 1 Capsul e(s) PO 03/11/2010 04/07/2010 Inactive Endocet 10 mg-325 mg Tab RxNorm: 1942407 1-2 Tablet(s) PO Q4H HI N PAIN 03/11/2010 04/09/2010 Inactive Savella 100 mg Tab RxNorm: 432261 1 Tablet(s) PO BID 03/10/201004/09 Inactive Soma 350 mg Tab RxNorm: 700068 1 Tablet(s) PO TID prn spasm 010 04/09/2010 Inactive Savella 100 mg Tab RxNorm: 318491 1 Tablet(s) PO BID 02/03/201004/09 Inactive Aspirin 81 mg Tab RxNorm: 967594 1 Tablet(s) PO QD No Start Date Active Zyrtec 10 mg Tab RxNorm: 1509538 1 Tablet(s) PO QD No Start Date Active One Touch Ultra Test Strips RxNorm: Misc test at least t wice daily. No Start Date Active coenzyme Q10 200 mg capsule RxNorm: 100976 1 Capsule(s) PO QD No Star t Date Active One Touch Ultra Test Strips RxNorm: InVt BID Zainab t blood sugar at least twice daily. No Start Date 11/10/2010 Inactive Gabapentin 800 mg Tab RxNorm: 543196 1 Tablet(s) PO QD No Start Date 05/05/2010 Inactive Abilify 5 mg tablet RxNorm: 811725 1 Tablet(s) PO QD No Start Date Inactive Chantix 1 mg Tab RxNorm: 810403 1 Tablet(s) PO BID No Start Date 10/22 Inactive Ozempic 0.25 mg or 0.5 mg (2 mg/1.5 mL) subcutaneous p en injector RxNorm: 9259206 .25 Milligram(s) SQ QW No Start Date 07/04/2019 Inactive lancets 28 gauge RxNorm: Miscellaneous As needed for blo od glucose sticks No Start Date 08/23/2013 Inactive potassium chloride ER 20 mEq tablet,extended release RxNorm: 155551 2 Tablet(s) PO QD No Start Date 09/26/2018 Inactive Ventolin HFA 90 mcg/actuation Aerosol Inhaler RxNorm: 121994 2 Puff(s) INH Q4H prn No Start Date 01/17/2012 Inactive potassium chloride ER 20 mEq tablet,extended release RxNorm: 568426 2 Tablet(s) PO QD No Start Date 10/19/2018 Inactive Januvia 100 mg tablet RxNorm: 724092 1 Tablet(s) PO QD No Start Date 09/10/2015 Inactive Medrol (Aníbal) 4 mg Tabs in a Dose Pack RxNorm: 206443 Tablet(s) PO N o Start Date 08/09/2011 Inactive as directed Zithromax Z-Aníbal 250 mg Tab RxNorm: 491176 Tablet(s) PO No Start Date 01/25/2012 Inactive as directed vitamin B6-vitamin E-magnesium tablet RxNorm: 1 Tablet(s ) PO QHS with INH No Start Date 03/30/2018 Inactive prednisone 20 mg Tab RxNorm: 015767 1 Tablet(s) PO TID for 1wk then 1 po BID for 1wk No Start Date 01/25/2012 Inactive furosemide 40 mg tablet RxNorm: 410576 1 Tablet(s) PO QAM No Start Date 10/09/2018 Inactive Vitamin D3 1000 units Capsule RxNorm: 1 Capsule(s) PO TID No S tart Date 03/19/2015 Inactive Zofran 4 mg Tab RxNorm: 825660 1 Tablet(s) PO Q4H prn nausea No Sta rt Date 04/13/2010 Inactive Premarin 0.625 mg/g Vaginal Cream RxNorm: 076181 1 Gram (s) VAG QHS 3 times a week No Start Date 09/22/2017 Inactive oxycodone 10 mg tablet RxNorm: 5625355 1-2 Tablet(s) PO QID as n eeded for pain No Start Date 11/04/2015 Inactive Nicoderm CQ 21 mg/24 hr daily Patch RxNorm: 230313 1 Applicatio n TD QD No Start Date 08/05/2015 Inactive Topamax 50 mg tablet RxNorm: 532151 1/2 Tablet(s) PO QH S for 1wk then 1 po q HS for 1wk then 2 po q HS No Start Date 06/27/2012 Inactive Chantix Starting Month Aníbal 0.5 mg (11)-1 mg (3x14) Tab s in a Dose Pack RxNorm: 363047 Tablet(s) PO as directed No Start Date 03/01/2011 Inactive Trulicity 0.75 mg/0.5 mL subcutaneous pen injector RxNorm: 1 214612 Milliliter(s) SQ No Start Date 07/04/2019 Inactive Medrol (Aníbal) 4 mg Tabs in a Dose Pack RxNorm: 912100 Tablet(s) PO N o Start Date 01/25/2012 Inactive as directed Duragesic 100 mcg/hr Transderm Patch RxNorm: 842186 2 A pplication TD Q48H for pain No Start Date 09/05/2013 Inactive Premarin 0.9 mg Tab RxNorm: 707968 1 Tablet(s) PO QD No Start Date Inactive Zithromax Z-Aníbal 250 mg Tab RxNorm: 829322 Tablet(s) PO as direc chinmay No Start Date 01/25/2012 Inactive ondansetron 8 mg disintegrating tablet RxNorm: 610750 1 Tablet(s) PO Q6H as needed No Start Date 10/10/2018 Inactive oxycodone 15 mg tablet RxNorm: 6561458 1 Tablet(s) PO QID as nee ded for pain No Start Date 03/05/2019 Inactive ProAir HFA 90 mcg/Actuation Aerosol Inhaler RxNorm: 485329 2 Puff(s) INH Q4H prn for wheezing or shortness of breath No Start Date 12/21/2011 Inactive pravastatin 40 mg tablet RxNorm: 691147 1/2 Tablet(s) PO QOD No Sta rt Date 04/09/2015 Inactive ipratropium-albuterol 0.5 mg-3 mg(2.5 mg base)/3 mL ne bulization soln RxNorm: 3661342 1 Unit Dose INH Q4H as needed No Start Date 09/09/2016 Inactive furosemide 40 mg tablet RxNorm: 292729 1 Tablet(s) PO QAM as ne eded No Start Date 09/24/2019 Inactive Vitamin D2 oral RxNorm: 4018 oral No Start Date 03/18/2015 Inacti ve pravastatin 40 mg tablet RxNorm: 991501 1/2 Tablet(s) PO QD No Star t Date 04/09/2015 Inactive ondansetron HCl 4 mg tablet RxNorm: 316005 1 Tablet(s) PO Q4H as needed for nausea and vomiting No Start Date 04/07/2016 Inactive furosemide 40 mg tablet RxNorm: 221923 2 Tablet(s) PO QAM No Start Date 09/26/2018 Inactive gabapentin 800 mg tablet RxNorm: 258842 1/2 Tablet(s) PO BID No Sta rt Date 06/21/2017 Inactive gabapentin 800 mg tablet RxNorm: 593320 1/2 Tablet(s) PO BID No Sta rt Date 07/05/2017 Inactive ProAir HFA 90 mcg/Actuation Aerosol Inhaler RxNorm: 590851 2 Puff(s) INH Q4H prn shortness of breath No Start Date 05/05/2010 Inactive scopolamine 1 mg over 3 days transdermal patch RxNorm: 21242 2 1 Application TD behind ear. Take off after three days No Start Date 10/10/2018 Inactive Metformin 500 mg Tab RxNorm: 299394 1 Tablet(s) PO QD No Start Date 0 05/05/2010 Inactive MS Contin 200 mg Tab RxNorm: 932675 1 Tablet(s) PO BID No Start Date 08/20/2011 Inactive Belladonna-Phenobarbital 48 mg tablet,extended release RxNor m: 2 Tablet(s) PO TID No Start Date 06/04/2016 Inactive Synthroid 112 mcg Tab RxNorm: 700352 1 Tablet(s) PO QD No Start Date 05/05/2010 Inactive Zegerid 40 mg-1.1 gram Cap RxNorm: 305311 1 Capsule(s) PO QD No Sta rt Date 01/25/2012 Inactive Premarin 0.625 mg/g Vaginal Cream RxNorm: 192003 VAG In sert 1gm vaginally at bedtime 3 times weekly No Start Date 01/17/2011 Inactive potassium chloride ER 20 mEq tablet,extended release RxNorm: 686382 1 Tablet(s) PO QD No Start Date 04/24/2019 Inactive methocarbamol 750 mg tablet RxNorm: 405856 2 Tablet(s) PO TID as needed for muscle spasm No Start Date 07/08/2014 Inactive Biaxin XL Aníbal 500 mg 24 hr Tab RxNorm: 963024 Tablet(s) PO as d irected No Start Date 04/24/2013 Inactive Vitamin D3 1,000 unit tablet RxNorm: 037166 3 Tablet(s) PO QD No St art Date 06/01/2017 Inactive Morphine SR 120 mg multiphase 24 hr Cap RxNorm: 560862 1 Capsul e(s) PO BID No Start Date 04/09/2010 Inactive Silvadene 1 % topical cream RxNorm: 249562 1 Application TOP BI D to burn area No Start Date 01/31/2017 Inactive Prednisone 20 mg Tab RxNorm: 541703 1 Tablet(s) PO TID for 3days then BID for 4days No Start Date 01/25/2012 Inactive gabapentin 600 mg tablet RxNorm: 515615 1 Tablet(s) PO BID No Start Date 01/21/2015 Inactive topiramate 50 mg tablet RxNorm: 554510 1 Tablet(s) PO QHS No Start Date 03/30/2018 Inactive Januvia 100 mg tablet RxNorm: 615043 1/2 Tablet(s) PO QD No Start D ate 12/25/2015 Inactive Diazepam 10 mg Tab RxNorm: 379905 1 Tablet(s) PO BID and PRN No Sta rt Date 06/08/2010 Inactive Medication Administered No Medication Administered data Immunizations Vaccine Codes Date Status Influenza CVX: 141 09/28/2012 Pneumovax Unknown 09/28/2012 Influenza (Adult) CVX: 141 09/02/2010 Results No Results data Procedures Procedure Codes Date THER/PROPH/DIAG INJ SC/IM CPT-4: 65145 07/10/2019 METHYLPREDNISOLONE INJECTION CPT-4: J2930 07/10/2019 URINALYSIS NONAUTO W/O SCOPE CPT-4: 17046 09/06/2018 URINE CULTURE/ COLONY COUNT CPT-4: 66338 09/06/2018 DRAIN/INJECT JOINT/BURSA CPT-4: 91283 04/29/2017 TRIAMCINOLONE ACET INJ NOS CPT-4: J3301 04/29/2017 DEXAMETHASONE SODIUM PHOS CPT-4: J1100 04/29/2017 INFLUENZA ASSAY W/OPTIC CPT-4: 90066 12/01/2016 RESPIRATORY CULTURE & STAIN CPT-4: 25574 07/09/2016 TB INTRADERMAL TEST CPT-4: 13817 04/21/2016 DRAIN/INJECT JOINT/BURSA CPT-4: 64240 11/07/2013 METHYLPREDNISOLONE 40 MG INJ CPT-4: J1030 11/07/2013 TRIAMCINOLONE ACET INJ NOS CPT-4: J3301 11/07/2013 DRAIN/INJECT JOINT/BURSA CPT-4: 80700 08/08/2013 METHYLPREDNISOLONE 40 MG INJ CPT-4: J1030 08/08/2013 TRIAMCINOLONE ACET INJ NOS CPT-4: J3301 08/08/2013 FLU VACCINE 3 YRS & > IM UP 64 CPT-4: 30620 2 PNEUMOCOCCAL VACC 23 ADITYA IM CPT-4: 03014 09/28/2012 IMMUNIZATION ADMIN CPT-4: 01498 09/28/2012 IMMUNIZATION ADMIN EACH ADD CPT-4: 23235 09/28/2012 FLU VACCINE 3 YRS & > IM UP 64 CPT-4: 55927 0 IMMUNIZATION ADMIN CPT-4: 61408 09/02/2010 METHYLPREDNISOLONE INJECTION CPT-4: J2930 05/07/2010 THER/PROPH/DIAG INJ SC/IM CPT-4: 80795 05/07/2010 Vital Signs Date Vital 11/29/2019 Blood [...] 1: 122/78 Code: 8480-6 BMI: 29.5 Code: 73908-2 Heart Rate 1: 76 bpm Height: 5'4" Respiratory Rate: 20 bpm SpO2: 96% Tempera ture: 37.0 (C) / 98.6 (F) Weight: 172 lbs 01/25/2019 Blood Pressure 1: 132/80 Code: 8480-6 BMI: 29.7 Code: 59416-4 Heart Rate 1: 84 bpm Height: 5'4" Respiratory Rate: 22 bpm SpO2: 98% Tempera ture: 36.9 (C) / 98.4 (F) Weight: 173 lbs 01/03/2019 Blood Pressure 1: 116/70 Code: 8480-6 BMI: 29.5 Code: 80137-4 Heart Rate 1: 92 bpm Height: 5'4" Respiratory Rate: 24 bpm SpO2: 98% Tempera ture: 37.2 (C) / 98.9 (F) Weight: 172 lbs 11/21/2018 Blood Pressure 1: 146/82 Code: 8480-6 BMI: 28.2 Code: 65704-2 Heart Rate 1: 88 bpm Height: 5'4" Respiratory Rate: 22 bpm SpO2: 97% Tempera ture: 36.9 (C) / 98.4 (F) Weight: 164 lbs 10/27/2018 Blood Pressure 1: 122/70 Code: 8480-6 BMI: 27.6 Code: 03267-4 Heart Rate 1: 88 bpm Height: 5'4" Respiratory Rate: 20 bpm SpO2: 96% Tempera ture: 36.8 (C) / 98.3 (F) Weight: 161 lbs 10/18/2018 Blood Pressure 1: 126/70 Code: 8480-6 BMI: 28.3 Code: 84666-1 Heart Rate 1: 76 bpm Height: 5'4" Respiratory Rate: 20 bpm SpO2: 95% Tempera ture: 37.0 (C) / 98.6 (F) Weight: 165 lbs 09/27/2018 Blood Pressure 1: 124/78 Code: 8480-6 BMI: 27.1 Code: 83284-9 Heart Rate 1: 88 bpm Height: 5'4" Respiratory Rate: 20 bpm SpO2: 98% Tempera ture: 36.4 (C) / 97.6 (F) Weight: 158 lbs 09/14/2018 Blood Pressure 1: 140/72 Code: 8480-6 BMI: 26.1 Code: 01471-9 Heart Rate 1: 100 bpm Height: 5'4" Respiratory Rate: 20 bpm SpO2: 97% Tempera ture: 36.9 (C) / 98.4 (F) Weight: 152 lbs 09/06/2018 Blood Pressure 1: 156/82 Code: 8480-6 BMI: 26.3 Code: 62093-2 Heart Rate 1: 100 bpm Height: 5'4" Respiratory Rate: 28 bpm SpO2: 95% Tempera ture: 37.2 (C) / 98.9 (F) Weight: 153 lbs 08/16/2018 Blood Pressure 1: 130/78 Code: 8480-6 Heart Rate 1: 87 bpm Respiratory Rate: 24 bpm SpO2: 94% Temperature: 36.9 (C) / 98.4 (F) We ight: 147 lbs 8 oz 07/07/2018 Blood Pressure 1: 116/78 Code: 8480-6 BMI: 22.7 Code: 14429-0 Heart Rate 1: 88 bpm Height: 5'4" Respiratory Rate: 22 bpm SpO2: 98% Tempera ture: 36.5 (C) / 97.7 (F) Weight: 132 lbs 05/31/2018 Blood Pressure 1: 128/78 Code: 8480-6 BMI: 22.3 Code: 49008-9 Heart Rate 1: 92 bpm Height: 5'4" Respiratory Rate: 26 bpm SpO2: 94% Tempera ture: 36.7 (C) / 98.1 (F) Weight: 130 lbs 03/31/2018 Blood Pressure 1: 136/78 Code: 8480-6 BMI: 21.5 Code: 51621-6 Heart Rate 1: 76 bpm Height: 5'4" Respiratory Rate: 24 bpm SpO2: 95% Tempera ture: 36.8 (C) / 98.3 (F) Weight: 125 lbs 01/26/2018 Blood Pressure 1: 142/64 Code: 8480-6 BMI: 20.6 Code: 09745-0 Heart Rate 1: 90 bpm Height: 5'4" Respiratory Rate: 24 bpm SpO2: 92% Tempera ture: 36.3 (C) / 97.3 (F) Weight: 120 lbs 10/26/2017 Blood Pressure 1: 124/70 Code: 8480-6 BMI: 20.3 Code: 44894-4 Heart Rate 1: 76 bpm Height: 5'4" Respiratory Rate: 22 bpm SpO2: 94% Tempera ture: 36.7 (C) / 98.1 (F) Weight: 118 lbs 09/23/2017 Blood Pressure 1: 106/70 Code: 8480-6 BMI: 19.2 Code: 90227-5 Heart Rate 1: 76 bpm Height: 5'4" Respiratory Rate: 20 bpm SpO2: 94% Tempera ture: 36.8 (C) / 98.3 (F) Weight: 112 lbs 08/12/2017 Blood Pressure 1: 116/68 Code: 8480-6 BMI: 20.1 Code: 69079-6 Heart Rate 1: 80 bpm Height: 5'4" Respiratory Rate: 22 bpm SpO2: 95% Tempera ture: 36.8 (C) / 98.2 (F) Weight: 117 lbs 07/06/2017 Blood Pressure 1: 136/78 Code: 8480-6 BMI: 20.6 Code: 48015-9 Heart Rate 1: 76 bpm Height: 5'4" Respiratory Rate: 24 bpm SpO2: 96% Tempera ture: 36.8 (C) / 98.2 (F) Weight: 120 lbs 06/02/2017 Blood Pressure 1: 112/70 Code: 8480-6 Heart Rate 1: 92 bpm Height: 5'4" Respiratory Rate: 24 bpm SpO2: 95% Temperature: 37.0 (C) / 98.6 (F) Weight: 04/29/2017 Blood Pressure 1: 94/52 Code: 8480-6 BMI: 19.6 C ode: 63198-3 Heart Rate 1: 84 bpm Height: 5'4" [...] 92/58 Code: 8480-6 BMI: 19.2 C ode: 06014-2 Heart Rate 1: 84 bpm Height: 5'4" Respiratory Rate: 26 bpm SpO2: 95% Tempera ture: 36.7 (C) / 98.0 (F) Weight: 112 lbs 12/01/2016 Blood Pressure 1: 114/70 Code: 8480-6 BMI: 19.2 Code: 64955-8 Heart Rate 1: 96 bpm Height: 5'4" Respiratory Rate: 28 bpm SpO2: 93% Tempera ture: 38.3 (C) / 101.0 (F) Weight: 112 lbs 10/27/2016 Blood Pressure 1: 126/66 Code: 8480-6 BMI: 19.6 Code: 25572-3 Heart Rate 1: 92 bpm Height: 5'4" Respiratory Rate: 28 bpm SpO2: 90% Tempera ture: 36.8 (C) / 98.3 (F) Weight: 114 lbs 09/09/2016 Blood Pressure 1: 126/74 Code: 8480-6 Heart Rate 1: 104 bpm Height: 5'4" Respiratory Rate: 32 bpm SpO2: 88% Temperature: 37 .2 (C) / 99.0 (F) 08/26/2016 Blood Pressure 1: 134/82 Code: 8480-6 BMI: 22.0 Code: 37312-5 Heart Rate 1: 84 bpm Height: 5'4" Respiratory Rate: 24 bpm SpO2: 94% Tempera ture: 36.8 (C) / 98.3 (F) Weight: 128 lbs 05/21/2016 Blood Pressure 1: 142/80 Code: 8480-6 BMI: 21.6 Code: 10134-2 Heart Rate 1: 104 bpm Height: 5'4" Respiratory Rate: 22 bpm SpO2: 93% Tempera ture: 36.0 (C) / 96.8 (F) Weight: 126 lbs 03/25/2016 Blood Pressure 1: 126/62 Code: 8480-6 Heart Rate 1: 88 bpm Respiratory Rate: 20 bpm SpO2: 92% Temperature: 36.8 (C) / 98.3 (F) We ight: 130 lbs 01/23/2016 Blood Pressure 1: 146/82 Code: 8480-6 BMI: 24.1 Code: 46000-9 Heart Rate 1: 92 bpm Height: 5'3" Respiratory Rate: 22 bpm Temperature: 37 .1 (C) / 98.8 (F) Weight: 136 lbs 12/26/2015 Blood Pressure 1: 142/78 Code: 8480-6 BMI: 24.6 Code: 82211-4 Heart Rate 1: 78 bpm Height: 5'3" Respiratory Rate: 20 bpm Temperature: 36 .7 (C) / 98.1 (F) Weight: 139 lbs 12/03/2015 Blood Pressure 1: 126/60 Code: 8480-6 BMI: 24.6 Code: 77494-6 Heart Rate 1: 100 bpm Height: 5'3" Respiratory Rate: 28 bpm Temperature: 37 .6 (C) / 99.6 (F) Weight: 139 lbs 09/10/2015 Blood Pressure 1: 124/64 Code: 8480-6 BMI: 23.7 Code: 35333-3 Heart Rate 1: 88 bpm Height: 5'3" Respiratory Rate: 24 bpm SpO2: 95% Tempera ture: 36.4 (C) / 97.6 (F) Weight: 134 lbs 08/06/2015 Blood Pressure 1: 114/76 Code: 8480-6 BMI: 23.2 Code: 96513-8 Heart Rate 1: 88 bpm Height: 5'3" Respiratory Rate: 22 bpm Temperature: 36 .6 (C) / 97.9 (F) Weight: 131 lbs 07/18/2015 Blood Pressure 1: 144/78 Code: 8480-6 BMI: 23.7 Code: 28160-5 Heart Rate 1: 84 bpm Height: 5'3" Respiratory Rate: 20 bpm Temperature: 37 .2 (C) / 99.0 (F) Weight: 134 lbs 04/10/2015 Blood Pressure 1: 110/64 Code: 8480-6 Heart Rate 1: 80 bpm Height: Respiratory Rate: 20 bpm Temperature: 37.1 (C) / 98.8 (F) Weight: 03/05/2015 Blood Pressure 1: 136/80 Code: 8480-6 BMI: 23.9 Code: 28285-5 Heart Rate 1: 76 bpm Height: 5'3" Respiratory Rate: 24 bpm Temperature: 37 .0 (C) / 98.6 (F) Weight: 135 lbs 01/30/2015 Blood Pressure 1: 142/80 Code: 8480-6 BMI: 23.0 Code: 24751-3 Heart Rate 1: 96 bpm Height: 5'3" Respiratory Rate: 22 bpm Temperature: 36 .2 (C) / 97.2 (F) Weight: 130 lbs 01/02/2015 Blood Pressure 1: 124/70 Code: 8480-6 BMI: 23.4 Code: 82256-1 Heart Rate 1: 84 bpm Height: 5'3" Respiratory Rate: 24 bpm SpO2: 95% Tempera ture: 36.9 (C) / 98.5 (F) Weight: 132 lbs 10/03/2014 Blood Pressure 1: 106/68 Code: 8480-6 BMI: 22.5 Code: 88923-3 Heart Rate 1: 88 bpm Height: 5'3" Respiratory Rate: 24 bpm Temperature: 37 .0 (C) / 98.6 (F) Weight: 127 lbs 08/27/2014 Blood Pressure 1: 124/68 Code: 8480-6 BMI: 21.1 Code: 15787-5 Heart Rate 1: 88 bpm Height: 5'3" [...] 1: 120/70 Code: 8480-6 BMI: 19.2 Code: 94359-7 Heart Rate 1: 70 bpm Height: 5'4" Respiratory Rate: 20 bpm Temperature: 36 .9 (C) / 98.4 (F) Weight: 112 lbs 06/28/2013 Blood Pressure 1: 102/68 Code: 8480-6 BMI: 19.6 Code: 23504-6 Heart Rate 1: 76 bpm Height: 5'4" Respiratory Rate: 20 bpm Temperature: 36 .8 (C) / 98.2 (F) Weight: 114 lbs 05/31/2013 Blood Pressure 1: 106/70 Code: 8480-6 BMI: 18.9 Code: 08012-5 Heart Rate 1: 100 bpm Height: 5'4" Respiratory Rate: 20 bpm Temperature: 36 .4 (C) / 97.6 (F) Weight: 110 lbs 05/03/2013 Blood Pressure 1: 126/70 Code: 8480-6 BMI: 19.1 Code: 88379-9 Heart Rate 1: 88 bpm Height: 5'4" Respiratory Rate: 20 bpm Temperature: 37 .1 (C) / 98.8 (F) Weight: 111 lbs 04/25/2013 Blood Pressure 1: 114/68 Code: 8480-6 BMI: 19.4 Code: 45920-0 Heart Rate 1: 92 bpm Height: 5'4" Respiratory Rate: 24 bpm SpO2: 96% Tempera ture: 37.7 (C) / 99.8 (F) Weight: 113 lbs 03/08/2013 Blood Pressure 1: 94/68 Code: 8480-6 BMI: 21.3 C ode: 74949-9 Heart Rate 1: 88 bpm Height: 5'4" Respiratory Rate: 24 bpm Temperature: 37 .0 (C) / 98.6 (F) Weight: 124 lbs 02/07/2013 Blood Pressure 1: 106/64 Code: 8480-6 BMI: 21.8 Code: 20981-8 Heart Rate 1: 84 bpm Height: 5'4" Respiratory Rate: 22 bpm Temperature: 36 .8 (C) / 98.2 (F) Weight: 127 lbs 01/10/2013 Blood Pressure 1: 122/68 Code: 8480-6 BMI: 21.6 Code: 14502-1 Heart Rate 1: 94 bpm Height: 5'4" SpO2: 94% Temperature: 36.7 (C) / 98.1 (F) Weight: 126 lbs 09/28/2012 Blood Pressure 1: 124/78 Code: 8480-6 BMI: 24.9 Code: 01871-2 Heart Rate 1: 92 bpm Height: 5'4" Respiratory Rate: 20 bpm Temperature: 36 .7 (C) / 98.1 (F) Weight: 145 lbs 06/28/2012 Blood Pressure 1: 134/80 Code: 8480-6 BMI: 24.9 Code: 51144-5 Heart Rate 1: 76 bpm Height: 5'4" Respiratory Rate: 20 bpm Temperature: 36 .8 (C) / 98.2 (F) Weight: 145 lbs 05/03/2012 Blood Pressure 1: 108/62 Code: 8480-6 BMI: 25.6 Code: 54186-6 Heart Rate 1: 88 bpm Height: 5'4" Temperature: 36.2 (C) / 97.2 (F) Weight: 149 lbs 03/01/2012 Blood Pressure 1: 124/66 Code: 8480-6 BMI: 25.1 Code: 30065-0 Heart Rate 1: 76 bpm Height: 5'4" Respiratory Rate: 20 bpm Temperature: 36 .6 (C) / 97.9 (F) Weight: 146 lbs 01/26/2012 Blood Pressure 1: 118/82 Code: 8480-6 BMI: 25.1 Code: 92295-3 Heart Rate 1: 74 bpm Height: 5'4" Temperature: 36.8 (C) / 98.2 (F) Weight: 146 lbs 11/03/2011 Blood Pressure 1: 126/80 Code: 8480-6 BMI: 27.3 Code: 86382-1 Heart Rate 1: 72 bpm Height: 5'4" [...] Monitoring 02/13/2020 follow up 11/29/2019 Discuss pneumonia [facility] follow up 10/30/2019 follow up 10/25/2019 follow [...] prozac Encounters Encounter Performer Location Codes Date ([id number]) OFFICE/OUTPATIENT VISIT EST Diagnosis: Urticaria[ICD10: L50.9] Diagnosis: Allergy to morphine[ICD10: Z88.5] Diagnosis: Chronic pain syndrome[ICD10: G89.4] Vika RENTERIA [facility] CPT-4: 22043 02/13/2020 ([id number]) OFFICE/OUTPATIENT VISIT EST Diagnosis: Chronic pain syndrome[ICD10: G89.4] Diagnosis: Localized edema[ICD10: R60.0] Diagnosis: Chronic obstructive pulmonary disease, unspecified[ICD10: J44.9] Diagnosis: Other fatigue[ICD10: R53.83] Diagnosis: Muscle weakness (generalized)[ICD10: M62.81] Diagnosis: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 Plan: SVN with Albuterol 0.083% Q4 hrs and Q2hrs prn. Restart Spiriva Smoking Cessation 05/07/2010 Appointment: Vika Renteria WPtel: [phone] [facility] FOLLOW UP 05/07/2010 Patient Education: Patient Medication Summary Completed 05/07/2010 Appointment: Vika Renteria WPtel: [phone] [facility] ACUTE ILLNESS 04/08/2010 Patient Education: Patient Medication Summary Completed 04/08/2010 Referral: Kyle Billings WPtel: [phone] [facility] [place] Referral Completed Referral: Jaylan Matute WPtel: [address] [facility] [address] [id number] [place] Referral Initiated Referral: Kyle Billings WPtel: [address] [place] [address] [place] Referral Appointment Requested Instructions Comment . [...] prn breakthrough pain . Discussed that some [employer] produc ts are petroleum free If [...]
--- OUTSIDE RECORDS SUMMARY | 2020-04-24 22:47 | XMS REPORT | CCD ---
Author Author Yana Renteria D.O. Organization [facility] Address [address] [place] [address] Phone Care Team Providers Care Unisaw Operator Name Role Phone Vika Renteria D.O., PP Unavailable CCM Unavailable Summary Purpose Interface Exchange Insurance Providers Payer name Policy type / Coverage type Covered republican ID Effective Begin Date Effective End Date [employer] [facility] Medicaid [id number] U nknown Family History Family History data not found Social History Social History Element Codes Description Effective Dates Marital status Unknown 06/28/[address]: [id number] Currently smokes tobacco 05/2013 Allergies, Adverse Reactions, [...] Fill Instructions prednisone 20 mg tablet RxNorm: 986239 1 Tablet(s) Oral two yumi es a day 02/13/2020 02/20/2020 Active oxycodone 30 mg tablet RxNorm: 8680838 1 Tablet(s) Oral four times a day replaces MS Contin 02/13/2020 03/14/2020 Active levothyroxine 25 mcg tablet RxNorm: 986524 TAKE ONE TAB LET BY MOUTH EVERY MORNING 02/09/2020 No Stop Date Active MS Contin 200 mg tablet,extended release RxNorm: 487340 1 Tablet(s) Oral two times a day 02/01/2020 03/01/2020 Active cyclobenzaprine 10 mg tablet RxNorm: 132449 TAKE ONE TA BLET BY MOUTH THREE TIMES A DAY NEEDED 01/31/2020 No Stop Date Active Premarin 0.45 mg tablet RxNorm: 609054 TAKE ONE TABLET BY MOUTH DAILY 01/31/2020 No Stop Date Active metformin 500 mg tablet RxNorm: 995506 1 Tablet(s) Oral QD 01/31/20 20 04/29/2020 Active gabapentin 300 mg capsule RxNorm: 895907 TAKE ONE CAPSULE BY [facility] TWICE A DAY 01/16/2020 No Stop Date Active potassium chloride ER 20 mEq tablet,extended release RxNorm: 624139 TAKE ONE TABLET BY MOUTH DAILY 01/08/2020 07/05/2020 Active ProAir HFA 90 mcg/actuation aerosol inhaler RxNorm: 713257 INHALE ONE PUFF BY MOUTH EVERY 4 HOURS FOR WHEEZING OR FOR SHORTNESS OF BREATH 01/04/2020 No Stop Date Active metformin 500 mg tablet RxNorm: 986094 1 Tablet(s) Oral QD 01/04/20 20 01/30/2020 Inactive MS Contin 200 mg tablet,extended release RxNorm: 743413 1 Tablet(s) Oral two times a day 01/02/2020 01/31/2020 Inactive Pulmicort 1 mg/2 mL suspension for nebulization RxNorm: 6168 19 USE ONE VIAL VIA NEBULIZER BY MOUTH TWICE A DAY 12/21/2019 No Stop Date Active furosemide 40 mg tablet RxNorm: 844125 TAKE ONE TABLET BY MOUTH EVERY MORNING NEEDED 12/20/2019 No Stop Date Active levothyroxine 25 mcg tablet RxNorm: 542445 TAKE ONE TAB LET BY MOUTH EVERY MORNING 12/20/2019 02/08/2020 Inactive MS Contin 200 mg tablet,extended release RxNorm: 241992 1 Tablet(s) Oral two times a day 12/05/2019 01/01/2020 Inactive Medrol (Aníbal) 4 mg tablets in a dose pack RxNorm: 222544 6 Tablet(s) Oral QD --then as directed 11/30/2019 12/05/2019 Inactive MS Contin 200 mg tablet,extended release RxNorm: 221364 1 Tablet(s) Oral two times a day 11/29/2019 12/04/2019 Inactive cyclobenzaprine 10 mg tablet RxNorm: 595982 TAKE ONE TA BLET BY MOUTH THREE TIMES A DAY NEEDED 11/21/2019 01/30/2020 Inactive MS Contin 200 mg tablet,extended release RxNorm: 405561 1 Tablet(s) Oral two times a day replaces 100mg dose 11/03/2019 11/02/2019 Inactive MS Contin 200 mg tablet,extended release RxNorm: 478033 1 Tablet(s) Oral two times a day replaces 100mg dose 11/03/2019 11/29/2019 Inactive ferrous sulfate 325 mg (65 mg iron) tablet RxNorm: 332104 1 Tab let(s) Oral QD 10/30/2019 No Stop Date Active MS Contin 100 mg tablet,extended release RxNorm: 490759 1 Table t(s) Oral QD 10/30/2019 10/29/2019 Inactive MS Contin 100 mg tablet,extended release RxNorm: 103786 1 Table t(s) Oral QD 10/30/2019 11/02/2019 Inactive Relistor 150 mg tablet RxNorm: 4342938 TAKE THREE TABLETS BY BENOIT TH DAILY 10/25/2019 No Stop Date Active pantoprazole 40 mg tablet,delayed release RxNorm: 949451 1 Tabl et(s) Oral QD 10/25/2019 No Stop Date Active Minipress 2 mg capsule RxNorm: 977505 1 Capsule(s) Oral QAM and 3 at bedtime 10/25/2019 No Stop Date Active Lancets, Super Thin RxNorm: 1 Unit Dose Miscellaneous QD 9 11/27/2020 Active Cymbalta 60 mg capsule,delayed release RxNorm: 337157 1 Capsule (s) Oral QAM 10/25/2019 No Stop Date Active Cymbalta 30 mg capsule,delayed release RxNorm: 332827 1 Capsule (s) Oral QAM 10/25/2019 No Stop Date Active oxycodone 15 mg tablet RxNorm: 6754746 1 Tablet(s) Oral four times a day as needed for pain 10/25/2019 11/28/2019 Inactive metformin 500 mg tablet RxNorm: 629079 1 Tablet(s) Oral QD 10/25/20 19 01/03/2020 Inactive levothyroxine 25 mcg tablet RxNorm: 256986 1 Tablet(s) Oral QAM 02/201912/19/2019 Inactive levothyroxine 25 mcg tablet RxNorm: 917257 1 Tablet(s) Oral QAM 02/201910/24/2019 Inactive MS Contin 100 mg tablet,extended release RxNorm: 635486 1 Tablet(s) Oral two times a day replaces fentanyl 10/25/2019 10/25/2019 Inactive Premarin 0.45 mg tablet RxNorm: 490503 TAKE ONE TABLET BY MOUTH DAILY 10/24/2019 01/30/2020 Inactive Duragesic 100 mcg/hr transdermal patch RxNorm: 329670 2 Application TD Q48H for pain 10/18/2019 10/24/2019 Inactive gabapentin 300 mg capsule RxNorm: 997856 TAKE ONE CAPSULE BY MO UTH TWICE A DAY 10/16/2019 01/15/2020 Inactive cyclobenzaprine 10 mg tablet RxNorm: 578521 TAKE ONE TA BLET BY MOUTH THREE TIMES A DAY NEEDED 09/27/2019 11/20/2019 Inactive Relistor 150 mg tablet RxNorm: 5817790 TAKE THREE TABLETS BY BENOIT TH DAILY 09/25/2019 10/24/2019 Inactive ProAir HFA 90 mcg/actuation aerosol inhaler RxNorm: 156267 INHALE ONE PUFF BY MOUTH EVERY 4 HOURS FOR WHEEZING OR FOR SHORTNESS OF BREATH 09/25/2019 01/03/2020 Inactive furosemide 40 mg tablet RxNorm: 321009 1 Tablet(s) Oral QAM as needed 09/25/2019 09/25/2019 Inactive oxycodone 15 mg tablet RxNorm: 9158051 1 Tablet(s) PO QID as nee ded for pain 09/21/2019 10/24/2019 Inactive Duragesic 100 mcg/hr transdermal patch RxNorm: 632355 2 Application TD Q48H for pain 09/19/2019 10/17/2019 Inactive Daliresp 500 mcg tablet RxNorm: 9160270 1 Tablet(s) Oral QD 019 03/08/2020 Active Relistor 150 mg tablet RxNorm: 5427898 TAKE THREE TABLETS BY BENOIT TH DAILY 07/25/2019 07/30/2019 Inactive cyclobenzaprine 10 mg tablet RxNorm: 808996 TAKE ONE TA BLET BY MOUTH THREE TIMES A DAY NEEDED 07/25/2019 09/22/2019 Inactive potassium chloride ER 20 mEq tablet,extended release RxNorm: 725096 TAKE ONE TABLET BY MOUTH DAILY 07/25/2019 01/07/2020 Inactive fluoxetine 40 mg capsule RxNorm: 286238 TAKE ONE CAPSULE BY BENOIT TH EVERY MORNING 07/11/2019 10/24/2019 Inactive Medrol (Aníbal) 4 mg tablets in a dose pack RxNorm: 996507 6 Tablet(s) PO QD --then as directed 07/10/2019 07/15/2019 Inactive omeprazole 40 mg capsule,delayed release RxNorm: 545733 1 Capsule(s) PO QD for stomach TAKE ONE CAPSULE BY MOUTH DAILY 07/10/2019 10/24/2019 Inactive Augmentin 875 mg-125 mg tablet RxNorm: 434632 1 Tablet(s) PO BID 07/16/2019 Inactive Trulicity 0.75 mg/0.5 mL subcutaneous pen injector RxNorm: 1 034479 0.75 Milliliter(s) SQ weekly 07/05/2019 10/24/2019 Inactive Compazine 10 mg tablet RxNorm: 486308 TAKE ONE TABLET B Y MOUTH FOUR TIMES A DAY NEEDED FOR NAUSEA 06/20/2019 07/19/2019 Inactive ProAir HFA 90 mcg/actuation aerosol inhaler RxNorm: 485246 INHALE ONE PUFF BY MOUTH EVERY 4 HOURS FOR WHEEZING OR FOR SHORTNESS OF BREATH 06/20/2019 06/23/2019 Inactive Daliresp 500 mcg tablet RxNorm: 9142677 TAKE ONE TABLET BY MOUTH DAILY 06/12/2019 09/10/2019 Inactive rorfbdph-jfbfquwuu-kkrlhkovf 3.5 mg/mL-10,000 unit/mL- 1 % ear solution RxNorm: 318132 4 Drop(s) otic (ear) TID to left ear 06/05/2019 10/24/2019 Inac tive furosemide 40 mg tablet RxNorm: 151924 TAKE ONE TABLET BY MOUTH EVERY MORNING 05/26/2019 07/09/2019 Inactive Duragesic 100 mcg/hr transdermal patch RxNorm: 455927 2 Application TD Q48H for pain 05/16/2019 06/14/2019 Inactive oxycodone 15 mg tablet RxNorm: 1693061 1 Tablet(s) PO QID as nee ded for pain 05/10/2019 09/20/2019 Inactive doxycycline hyclate 100 mg capsule RxNorm: 8540359 1 Capsule(s) PO BID 05/03/2019 05/12/2019 Inactive prednisone 20 mg tablet RxNorm: 291722 1 Tablet(s) PO T ID for 3 days then 1 po BID for 3 days then one daily for 3 days 05/03/2019 07/11/2019 Inactiv e Ozempic 0.25 mg or 0.5 mg (2 mg/1.5 mL) subcutaneous p en injector RxNorm: 7357855 0.5 Milligram(s) SQ QW 05/03/2019 07/09/2019 Inactive fluconazole 100 mg tablet RxNorm: 736231 1 Tablet(s) PO QD 05/03/2005/07/2019 Inactive Premarin 0.45 mg tablet RxNorm: 605290 TAKE ONE TABLET BY MOUTH DAILY 05/03/2019 10/23/2019 Inactive potassium chloride ER 20 mEq tablet,extended release RxNorm: 878349 1 Tablet(s) PO QD 04/27/2019 07/25/2019 Inactive potassium chloride ER 20 mEq tablet,extended release RxNorm: 793517 1 Tablet(s) PO QD 04/25/2019 04/26/2019 Inactive Compazine 10 mg tablet RxNorm: 478634 1 Tablet(s) PO QID as nee ded for nausea 04/25/2019 05/04/2019 Inactive ProAir HFA 90 mcg/actuation aerosol inhaler RxNorm: 987629 INHALE ONE PUFF BY MOUTH EVERY 4 HOURS FOR WHEEZING OR FOR SHORTNESS OF BREATH 04/12/2019 06/10/2019 Inactive Medrol (Aníbal) 4 mg tablets in a dose pack RxNorm: 313422 6 Tablet(s) PO QD --then as directed 04/11/2019 04/16/2019 Inactive Symbicort 160 mcg-4.5 mcg/actuation HFA aerosol inhaler RxNo rm: 0632759 2 Puff(s) INH BID 04/10/2019 10/06/2019 Inactive levothyroxine 50 mcg tablet RxNorm: 848879 1 Tablet(s) PO QD 201810/24/2019 Inactive gabapentin 300 mg capsule RxNorm: 331660 1 Capsule(s) PO BID 201810/02/2019 Inactive Symbicort 160 mcg-4.5 mcg/actuation HFA aerosol inhaler RxNo rm: 7301601 2 Puff(s) INH BID 04/06/2019 04/09/2019 Inactive oxycodone 15 mg tablet RxNorm: 9115705 1 Tablet(s) PO QID as nee ded for pain 04/05/2019 05/09/2019 Inactive levothyroxine 50 mcg tablet RxNorm: 765279 1 Tablet(s) PO QD 201804/09/2019 Inactive furosemide 40 mg tablet RxNorm: 847889 TAKE ONE TABLET BY MOUTH EVERY MORNING 03/21/2019 04/19/2019 Inactive levothyroxine 50 mcg tablet RxNorm: 847769 TAKE ONE TABLET BY M OUTH DAILY 03/21/2019 03/27/2019 Inactive Duragesic 100 mcg/hr transdermal patch RxNorm: 196072 2 Application TD Q48H for pain 03/13/2019 04/11/2019 Inactive oxycodone 15 mg tablet RxNorm: 9143961 1 Tablet(s) PO QID as nee ded for pain 03/06/2019 04/04/2019 Inactive Relistor 150 mg tablet RxNorm: 0084853 3 Tablet(s) PO QD 02/28/2019 0 05/28/2019 Inactive cyclobenzaprine 10 mg tablet RxNorm: 261947 1 Tablet(s) PO TID as needed 02/28/2019 05/28/2019 Inactive phentermine 37.5 mg tablet RxNorm: 589956 1 Tablet(s) PO QAM 201803/15/2019 Inactive Duragesic 100 mcg/hr transdermal patch RxNorm: 169741 2 Application TD Q48H for pain 02/09/2019 03/10/2019 Inactive Daliresp 500 mcg tablet RxNorm: 8996305 TAKE ONE TABLET BY MOUTH DAILY 01/31/2019 05/30/2019 Inactive Premarin 0.45 mg tablet RxNorm: 839498 1 Tablet(s) PO QD 01/31/2019 0 04/30/2019 Inactive fluoxetine 40 mg capsule RxNorm: 760205 Capsule(s) TAKE ONE CAPSULE BY MOUTH EVERY MORNING 01/31/2019 04/30/2019 Inactive levothyroxine 50 mcg tablet RxNorm: 862022 1 Tablet(s) PO QD 201804/10/2019 Inactive follow up in 3 weeks levothyroxine 50 mcg tablet RxNorm: 252837 1 Tablet(s) PO QD 201801/25/2019 Inactive follow up in 3 weeks potassium chloride ER 20 mEq tablet,extended release RxNorm: 908314 2 Tablet(s) PO BID 01/23/2019 01/08/2020 Inactive Synthroid 50 mcg tablet RxNorm: 579392 TAKE ONE TABLET BY MOUTH DAILY 01/16/2019 10/24/2019 Inactive potassium chloride ER 20 mEq tablet,extended release RxNorm: 726204 2 Tablet(s) PO BID 01/04/2019 01/22/2019 Inactive ProAir HFA 90 mcg/actuation aerosol inhaler RxNorm: 377558 INHALE ONE PUFF BY MOUTH EVERY 4 HOURS FOR WHEEZING OR SHORTNESS OF BREATH 01/04/201902/20 Inactive Request already responded to by other me ans (e.g. phone or fax) ProAir HFA 90 mcg/actuation aerosol inhaler RxNorm: 0367577 INHALE ONE PUFF BY MOUTH EVERY 4 HOURS FOR WHEEZING OR SHORTNESS OF BREATH 01/02/201912/23 Inactive gabapentin 300 mg capsule RxNorm: 416156 TAKE ONE CAPSULE BY MO UTH TWICE A DAY 12/30/2018 04/06/2019 Inactive furosemide 40 mg tablet RxNorm: 598365 1 Tablet(s) PO QAM 12/26/2018 02/23/2019 Inactive Compazine 10 mg tablet RxNorm: 094788 1 Tablet(s) PO QID as nee ded for nausea 12/07/2018 12/16/2018 Inactive metolazone 2.5 mg tablet RxNorm: 030431 TAKE ONE TABLET BY MOUT H EVERY MORNING 12/05/2018 01/03/2019 Inactive metformin ER 500 mg tablet,extended release 24 hr RxNorm: 86 0975 TAKE ONE TABLET BY MOUTH DAILY 12/05/2018 01/31/2020 Inactive Synthroid 50 mcg tablet RxNorm: 541355 1 Tablet(s) PO QD 11/25/2018 0 01/03/2019 Inactive DC any other synthroid strengths. Should be 50mcg only cyclobenzaprine 10 mg tablet RxNorm: 541929 TAKE ONE TA BLET BY MOUTH THREE TIMES A DAY NEEDED 11/09/2018 02/06/2019 Inactive metolazone 2.5 mg tablet RxNorm: 730663 1 Tablet(s) PO QAM repl aces 5mg dose 11/02/2018 12/01/2018 Inactive potassium chloride ER 20 mEq tablet,extended release RxNorm: 657954 2 Tablet(s) PO QD 2018 01/02/2019 Inactive Compazine 10 mg tablet RxNorm: 795400 1 Tablet(s) PO QID as nee ded for nausea 10/18/2018 12/07/2018 Inactive furosemide 40 mg tablet RxNorm: 819511 1 Tablet(s) PO QAM 10/12/2018 12/10/2018 Inactive ondansetron 8 mg disintegrating tablet RxNorm: 914184 1 Tablet(s) PO Q6H as needed 10/11/2018 10/17/2018 Inactive scopolamine 1 mg over 3 days transdermal patch RxNorm: 63185 2 1 Application TD behind ear. Take off after three days 10/11/2018 01/02/2019 Inactive furosemide 40 mg tablet RxNorm: 249954 1 Tablet(s) PO QAM 10/10/2018 12/26/2018 Inactive metolazone 5 mg tablet RxNorm: 758228 1 Tablet(s) PO QAM 10/06/2018 1 01/03/2018 Inactive metolazone 5 mg tablet RxNorm: 832891 1 Tablet(s) PO QAM 10/06/2018 1 12/05/2017 Inactive Xtampza ER 36 mg capsule sprinkle RxNorm: 4275694 1 Capsule(s) P O BID 10/05/2018 01/02/2019 Inactive Xtampza ER 36 mg capsule sprinkle RxNorm: 7116485 1 Capsule(s) P O BID 10/05/2018 02/12/2019 Inactive omeprazole 40 mg capsule,delayed release RxNorm: 061466 TAKE ONE CAPSULE BY MOUTH DAILY 10/03/2018 12/31/2018 Inactive Duragesic 100 mcg/hr transdermal patch RxNorm: 136425 2 Application TD Q48H for pain 09/30/2018 10/29/2018 Inactive Synthroid 50 mcg tablet RxNorm: 602589 1 Tablet(s) PO QD 09/29/2018 0 11/25/2018 Inactive DC any other synthroid strengths. Should be 50mcg only Synthroid 50 mcg tablet RxNorm: 695255 1 Tablet(s) PO QD 09/29/2018 1 11/28/2017 Inactive furosemide 40 mg tablet RxNorm: 367258 2 Tablet(s) PO Q AM for 1 week then every other day for 2 weeks 09/27/2018 10/12/2018 Inactive fluoxetine 40 mg capsule RxNorm: 838163 2 Capsule(s) PO QD 09/27/20 18 10/17/2018 Inactive potassium chloride ER 20 mEq tablet,extended release RxNorm: 278091 2 Tablet(s) PO QD for 1 week then every other day for 2 weeks 09/27/2018 2018 Inactive ProAir HFA 90 mcg/actuation aerosol inhaler RxNorm: 2914334 INHALE ONE PUFF BY MOUTH EVERY 4 HOURS FOR WHEEZING OR SHORTNESS OF BREATH 09/26/201811/23 Inactive Synthroid 75 mcg tablet RxNorm: 749687 1 Tablet(s) PO QD 09/09/2018 1 Inactive Synthroid 75 mcg tablet RxNorm: 948847 1 Tablet(s) PO QD 09/09/2018 1 11/28/2017 Inactive furosemide 40 mg tablet RxNorm: 740417 1 Tablet(s) PO QD 09/06/2018 1 Inactive potassium chloride ER 20 mEq tablet,extended release RxNorm: 595375 1 Tablet(s) PO QD 09/06/2018 09/19/2018 Inactive Duragesic 100 mcg/hr transdermal patch RxNorm: 975415 2 Application TD Q48H for pain 08/30/2018 09/28/2018 Inactive gabapentin 300 mg capsule RxNorm: 681706 TAKE ONE CAPSULE BY MO UT TWICE A DAY 08/23/2018 12/20/2018 Inactive Daliresp 500 mcg tablet RxNorm: 9690623 TAKE ONE TABLET BY MOUTH DAILY 08/23/2018 01/19/2019 Inactive Pulmicort 1 mg/2 mL suspension for nebulization RxNorm: 6168 19 USE ONE VIAL VIA NEBULIZER BY MOUTH TWICE A DAY 08/23/2018 07/11/2019 Inactive Synthroid 88 mcg tablet RxNorm: 651304 1 Tablet(s) PO QD 08/19/2018 1 Inactive Medrol (Aníbal) 4 mg tablets in a dose pack RxNorm: 056478 Tablet(s) PO take as directed 08/16/2018 09/05/2018 Inactive Relistor 150 mg tablet RxNorm: 0447673 3 Tablet(s) PO QD 08/16/2018 1 Inactive Zithromax Z-Aníbal 250 mg tablet RxNorm: 115134 Tablet(s) PO take as directed 08/16/2018 09/05/2018 Inactive cyclobenzaprine 10 mg tablet RxNorm: 381341 1 Tablet(s) PO TID as needed 08/16/2018 11/08/2018 Inactive Synthroid 88 mcg tablet RxNorm: 730418 1 Tablet(s) PO Q D NEEDS UPDATED LABS BEFORE FURTHER REFILLS 08/08/2018 08/19/2018 Inactive Premarin 0.45 mg tablet RxNorm: 103006 1 Tablet(s) PO QD 08/03/2018 0 01/31/2019 Inactive fluoxetine 20 mg capsule RxNorm: 639066 TAKE ONE CAPSULE BY BENOIT TH DAILY 08/03/2018 09/26/2018 Inactive Xtampza ER 36 mg capsule sprinkle RxNorm: 7050602 1 Capsule(s) P O BID 08/03/2018 09/01/2018 Inactive metformin ER 500 mg tablet,extended release 24 hr RxNorm: 86 0975 1 Tablet(s) PO QD 08/03/2018 10/31/2018 Inactive Symbicort 160 mcg-4.5 mcg/actuation HFA aerosol inhaler RxNo rm: 7235274 2 Puff(s) INH BID 08/03/2018 01/29/2019 Inactive Duragesic 100 mcg/hr transdermal patch RxNorm: 436580 2 Application TD Q48H for pain 07/29/2018 08/27/2018 Inactive ProAir HFA 90 mcg/actuation aerosol inhaler RxNorm: 163510 INHALE TWO PUFFS BY MOUTH EVERY 4 HOURS FOR WHEEZING OR SHORTNESS OF BREATH 07/27/201802/2018 Inactive Relistor 150 mg tablet RxNorm: 2272194 3 Tablet(s) PO QD 07/20/2018 0 08/15/2018 Inactive metformin ER 500 mg tablet,extended release 24 hr RxNorm: 86 0975 TAKE ONE TABLET BY MOUTH DAILY 07/08/2018 08/02/2018 Inactive fluoxetine 40 mg capsule RxNorm: 002861 TAKE ONE CAPSULE BY BENOIT TH EVERY MORNING 07/08/2018 10/05/2018 Inactive Xtampza ER 18 mg capsule sprinkle RxNorm: 6631537 1 Capsule(s) P O BID 07/08/2018 08/02/2018 Inactive Relistor 150 mg tablet RxNorm: 8965249 3 Tablet(s) PO QD 07/08/2018 0 07/12/2018 Inactive Synthroid 88 mcg tablet RxNorm: 674996 1 Tablet(s) PO Q D NEEDS UPDATED LABS BEFORE FURTHER REFILLS 06/23/2018 07/07/2018 Inactive fluoxetine 40 mg capsule RxNorm: 022118 TAKE ONE CAPSULE BY BENOIT TH EVERY MORNING 06/15/2018 09/26/2018 Inactive orphenadrine citrate ER 100 mg tablet,extended release RxNor m: 577391 TAKE ONE TABLET BY MOUTH TWICE A DAY FOR MUSCLE SPASM 06/15/2018 08/15/2018 Renu ctive Duragesic 100 mcg/hr transdermal patch RxNorm: 975759 2 Application TD Q48H for pain 05/30/2018 06/28/2018 Inactive ProAir HFA 90 mcg/actuation aerosol inhaler RxNorm: 160638 INHALE TWO PUFFS BY MOUTH EVERY 4 HOURS FOR WHEEZING OR SHORTNESS OF BREATH 05/19/2018 09/0 03/2018 Inactive Chantix Continuing Month Box 1 mg tablet RxNorm: 145489 TAKE ONE TABLET BY MOUTH TWICE A DAY 05/19/2018 08/15/2018 Inactive oxycodone 10 mg tablet RxNorm: 0330327 1-2 Tablet(s) PO QID as n eeded for pain 05/19/2018 07/07/2018 Inactive gabapentin 300 mg capsule RxNorm: 555783 TAKE ONE CAPSULE BY MO UT TWICE A DAY 05/18/2018 07/16/2018 Inactive ProAir HFA 90 mcg/actuation aerosol inhaler RxNorm: 064985 INHALE TWO PUFFS BY MOUTH EVERY 4 HOURS FOR WHEEZING OR SHORTNESS OF BREATH 05/04/201804/23 Inactive Augmentin 500 mg-125 mg tablet RxNorm: 026862 1 Tablet(s) PO BID 05/03/2018 Inactive oxycodone 10 mg tablet RxNorm: 8600277 1-2 Tablet(s) PO QID as n eeded for pain 04/21/2018 05/18/2018 Inactive Synthroid 88 mcg tablet RxNorm: 931938 1 Tablet(s) PO QD 04/15/2018 0 08/08/2018 Inactive Symbicort 160 mcg-4.5 mcg/actuation HFA aerosol inhaler RxNo rm: 2249731 2 Puff(s) INH BID 04/15/2018 04/10/2019 Inactive Premarin 0.45 mg tablet RxNorm: 456845 1 Tablet(s) PO QD 04/15/2018 0 08/03/2018 Inactive ProAir HFA 90 mcg/actuation aerosol inhaler RxNorm: 554474 2 Puff(s) INH Q4H prn for wheezing or shortness of breath 04/15/2018 05/03/2018 Inactive metformin ER 500 mg tablet,extended release 24 hr RxNorm: 86 0975 1 Tablet(s) PO QD 04/11/2018 07/07/2018 Inactive omeprazole 40 mg capsule,delayed release RxNorm: 859087 TAKE ONE CAPSULE BY MOUTH DAILY 04/10/2018 06/08/2018 Inactive Synthroid 88 mcg tablet RxNorm: 896126 1 Tablet(s) PO QD 04/04/2018 0 04/14/2018 Inactive Synthroid 88 mcg tablet RxNorm: 687427 1 Tablet(s) PO QD 04/04/2018 0 04/03/2018 Inactive orphenadrine citrate ER 100 mg tablet,extended release RxNor m: 577668 1 Tablet(s) PO BID for muscle spasm 04/04/2018 05/03/2018 Inactive metformin ER 500 mg tablet,extended release 24 hr RxNorm: 86 0975 1 Tablet(s) PO QD NEEDS UPDATED LABS 03/31/2018 04/11/2018 Inactive doxycycline hyclate 100 mg capsule RxNorm: 2264672 1 Capsule(s) PO BID 03/31/2018 04/09/2018 Inactive prednisone 20 mg tablet RxNorm: 026870 3 Tablet(s) PO T ID for 3 days then 1 po BID for 3 days then one daily for 3 days 03/31/2018 07/06/2018 Inactiv e Chantix Continuing Month Box 1 mg tablet RxNorm: 941661 TAKE ONE TABLET BY MOUTH TWICE A DAY 03/25/2018 03/30/2018 Inactive oxycodone 10 mg tablet RxNorm: 4577301 1-2 Tablet(s) PO QID as n eeded for pain 03/21/2018 04/20/2018 Inactive Daliresp 500 mcg tablet RxNorm: 5200320 1 Tablet(s) PO QD 03/15/2018 08/22/2018 Inactive metformin ER 500 mg tablet,extended release 24 hr RxNorm: 86 0975 1 Tablet(s) PO QD NEEDS UPDATED LABS 03/14/2018 03/31/2018 Inactive nystatin 100,000 unit/mL oral suspension RxNorm: 789902 5 Chio liter(s) PO QID 03/02/2018 03/15/2018 Inactive nystatin 100,000 unit/mL oral suspension RxNorm: 140736 5 Chio liter(s) PO QID 03/02/2018 03/01/2018 Inactive oxycodone 10 mg tablet RxNorm: 8346773 1-2 Tablet(s) PO QID as n eeded for pain 02/16/2018 03/20/2018 Inactive fluoxetine 20 mg capsule RxNorm: 478403 1 Capsule(s) PO QD 02/15/20 18 08/02/2018 Inactive metformin ER 500 mg tablet,extended release 24 hr RxNorm: 86 0975 1 Tablet(s) PO QD Needs updated labs 02/14/2018 03/14/2018 Inactive cefdinir 300 mg capsule RxNorm: 159897 1 Capsule(s) PO BID 01/27/20 18 02/04/2018 Inactive orphenadrine citrate ER 100 mg tablet,extended release RxNor m: 523270 1 Tablet(s) PO BID for muscle spasm 01/26/2018 04/04/2018 Inactive gabapentin 300 mg capsule RxNorm: 368223 1 Capsule(s) PO BID 201704/17/2018 Inactive oxycodone 10 mg tablet RxNorm: 2914788 1-2 Tablet(s) PO QID as n eeded for pain 01/17/2018 02/15/2018 Inactive Duragesic 100 mcg/hr transdermal patch RxNorm: 240543 2 Application TD Q48H for pain 01/17/2018 02/15/2018 Inactive gabapentin 300 mg capsule RxNorm: 260948 TAKE ONE CAPSULE BY MO UTH TWICE A DAY 12/20/2017 01/18/2018 Inactive fluoxetine 40 mg capsule RxNorm: 773112 TAKE ONE CAPSULE BY BENOIT TH EVERY MORNING 12/15/2017 03/14/2018 Inactive OneTouch Ultra Test strips RxNorm: TEST DAILY 11/04/2017 02/01/2018 Inactive gabapentin 300 mg capsule RxNorm: 785601 1 Capsule(s) P O TID replaces BID dosing 10/26/2017 02/22/2018 Inactive oxycodone 10 mg tablet RxNorm: 9806209 1-2 Tablet(s) PO QID as n eeded for pain 10/18/2017 01/16/2018 Inactive Duragesic 100 mcg/hr transdermal patch RxNorm: 794914 2 Application TD Q48H for pain 10/18/2017 11/16/2017 Inactive gabapentin 300 mg capsule RxNorm: 166919 1 Capsule(s) PO BID 201610/25/2017 Inactive Abilify 5 mg tablet RxNorm: 555418 1 Tablet(s) PO QAM 09/23/201702/2017 Inactive gabapentin 300 mg capsule RxNorm: 006900 1 Capsule(s) PO BID 201610/17/2017 Inactive oxycodone 10 mg tablet RxNorm: 6661637 1-2 Tablet(s) PO QID as n eeded for pain 09/15/2017 10/17/2017 Inactive Duragesic 100 mcg/hr transdermal patch RxNorm: 485220 2 Application TD Q48H for pain 09/15/2017 10/14/2017 Inactive Duragesic 100 mcg/hr transdermal patch RxNorm: 445652 2 Application TD Q48H for pain 09/15/2017 10/24/2019 Inactive oxycodone 10 mg tablet RxNorm: 7574945 1-2 Tablet(s) PO QID as n eeded for pain 09/15/2017 08/15/2018 Inactive Daliresp 500 mcg tablet RxNorm: 5927487 1 Tablet(s) PO QD 09/06/2017 03/15/2018 Inactive Ventolin HFA 90 mcg/actuation aerosol inhaler RxNorm: 919788 2 Puff(s) INH Q4H as needed 09/02/2017 05/19/2018 Inactive oxycodone 10 mg tablet RxNorm: 4914324 1-2 Tablet(s) PO QID as n eeded for pain 08/17/2017 09/14/2017 Inactive Duragesic 100 mcg/hr transdermal patch RxNorm: 996732 2 Application TD Q48H for pain 08/17/2017 09/14/2017 Inactive fluoxetine 40 mg capsule RxNorm: 286702 Capsule(s) TAKE ONE CAPSULE BY MOUTH EVERY MORNING 08/17/2017 12/14/2017 Inactive Pulmicort 1 mg/2 mL suspension for nebulization RxNorm: 6168 19 1 Unit Dose INH BID Dx: COPD (J44.9) 08/16/2017 08/22/2018 Inactive gabapentin 300 mg capsule RxNorm: 500335 1 Capsule(s) PO QHS 201610/18/2017 Inactive fluoxetine 20 mg capsule RxNorm: 361574 1 Capsule(s) PO QD 08/12/20 17 02/14/2018 Inactive Abilify 2 mg tablet RxNorm: 880628 1 Tablet(s) PO QD TA KE ONE TABLET BY MOUTH DAILY 08/12/2017 10/25/2017 Inactive metformin ER 500 mg tablet,extended release 24 hr RxNorm: 86 0975 1 Tablet(s) PO QD 08/10/2017 02/14/2018 Inactive Synthroid 112 mcg tablet RxNorm: 386754 1 Tablet(s) PO QD 08/10/2017 04/15/2018 Inactive oxycodone 10 mg tablet RxNorm: 8373321 1-2 Tablet(s) PO QID as n eeded for pain 07/19/2017 08/16/2017 Inactive Duragesic 100 mcg/hr transdermal patch RxNorm: 574992 2 Application TD Q48H for pain 07/19/2017 08/16/2017 Inactive Ventolin HFA 90 mcg/actuation aerosol inhaler RxNorm: 708892 2 Puff(s) INH Q4H as needed 07/12/2017 09/02/2017 Inactive Abilify 2 mg tablet RxNorm: 217870 1 Tablet(s) PO QD TA KE ONE TABLET BY MOUTH DAILY 07/06/2017 08/11/2017 Inactive gabapentin 800 mg tablet RxNorm: 198378 1 Tablet(s) PO TID 06/22/20 17 07/05/2017 Inactive Chantix Starting Month Box 0.5 mg (11)-1 mg (42) table ts in dose pack RxNorm: 524408 TAKE BY MOUTH INSTRUCTED - PER PACKAGE INSTRUCTIONS 06/0707/04/2017 Inactive Ventolin HFA 90 mcg/actuation aerosol inhaler RxNorm: 558726 2 Puff(s) INH Q4H as needed 05/26/2017 07/12/2017 Inactive Duragesic 100 mcg/hr transdermal patch RxNorm: 071627 2 Application TD Q48H for pain 05/19/2017 06/17/2017 Inactive oxycodone 10 mg tablet RxNorm: 8675068 1-2 Tablet(s) PO QID as n eeded for pain 05/19/2017 07/18/2017 Inactive Abilify 2 mg tablet RxNorm: 934307 TAKE ONE TABLET BY MOUTH DAILY 0 05/10/2017 07/05/2017 Inactive Synthroid 112 mcg tablet RxNorm: 829092 1 Tablet(s) PO QD 05/06/2017 08/10/2017 Inactive metformin ER 500 mg tablet,extended release 24 hr RxNorm: 86 0975 1 Tablet(s) PO QD 05/06/2017 08/10/2017 Inactive Topamax 100 mg tablet RxNorm: 449399 1 Tablet(s) PO QHS 05/06/2017 Inactive Premarin 0.45 mg tablet RxNorm: 380722 1 Tablet(s) PO QD 05/06/2017 0 04/15/2018 Inactive orphenadrine citrate ER 100 mg tablet,extended release RxNor m: 716788 1 Tablet(s) PO TID for muscle spasm--replaces methocarbamol 04/29/2017 Inactive oxycodone 10 mg tablet RxNorm: 0764122 1-2 Tablet(s) PO QID as n eeded for pain 04/21/2017 05/18/2017 Inactive Duragesic 100 mcg/hr transdermal patch RxNorm: 111994 2 Application TD Q48H for pain 04/21/2017 05/18/2017 Inactive fluoxetine 40 mg capsule RxNorm: 763088 Capsule(s) TAKE ONE CAPSULE BY MOUTH EVERY MORNING 04/20/2017 08/17/2017 Inactive Ventolin HFA 90 mcg/actuation aerosol inhaler RxNorm: 304146 2 Puff(s) INH Q4H as needed 04/05/2017 05/26/2017 Inactive Symbicort 160 mcg-4.5 mcg/actuation HFA aerosol inhaler RxNo rm: 7678787 2 Puff(s) INH BID 03/30/2017 04/15/2018 Inactive Spiriva with HandiHaler 18 mcg and inhalation capsules RxNor m: 812101 1 Capsule(s) INH QD USING HANDIHALER 03/30/2017 02/12/2019 Inactive Duragesic 100 mcg/hr transdermal patch RxNorm: 081258 2 Application TD Q48H for pain 03/18/2017 04/16/2017 Inactive oxycodone 10 mg tablet RxNorm: 1751067 1-2 Tablet(s) PO QID as n eeded for pain 03/18/2017 04/20/2017 Inactive metformin ER 500 mg tablet,extended release 24 hr RxNorm: 86 0975 Tablet(s) TAKE ONE TABLET BY MOUTH DAILY 03/01/2017 05/06/2017 Inactive Premarin 0.45 mg tablet RxNorm: 798644 Tablet(s) TAKE ONE TABLE T BY MOUTH DAILY 03/01/2017 05/06/2017 Inactive Synthroid 112 mcg tablet RxNorm: 957513 Tablet(s) TAKE ONE TABLET BY MOUTH DAILY 03/01/2017 05/06/2017 Inactive Daliresp 500 mcg tablet RxNorm: 5767100 1 Tablet(s) PO QD 03/01/2017 09/06/2017 Inactive 16.2 mg-0.1037 mg-0.0194 mg tablet RxNorm: 2462880 Tablet(s) PO PRN for gas and cramping 02/23/2017 04/28/2017 Inactive TAKE TWO TABLET S BY MOUTH THREE TIMES A DAY NEEDED FOR GAS AND CRAMPING gabapentin 800 mg tablet RxNorm: 764341 1 Tablet(s) PO TID repl aces 600mg 02/23/2017 04/28/2017 Inactive Duragesic 100 mcg/hr transdermal patch RxNorm: 741348 2 Application TD Q48H for pain 02/17/2017 03/17/2017 Inactive fluoxetine 20 mg capsule RxNorm: 158116 1 Capsule(s) PO QD 02/18/20 17 08/12/2017 Inactive oxycodone 20 mg tablet RxNorm: 2339102 1 Tablet(s) PO QID as nee ded for pain 02/17/2017 03/17/2017 Inactive Ventolin HFA 90 mcg/actuation aerosol inhaler RxNorm: 702704 INHALE TWO PUFFS BY MOUTH EVERY 4 HOURS NEEDED 02/15/2017 04/05/2017 Inactive Silvadene 1 % topical cream RxNorm: 604301 1 Application TOP BI D to burn area 02/01/2017 09/22/2017 Inactive Topamax 100 mg tablet RxNorm: 879088 TAKE ONE TABLET BY MOUTH EVERY NIGHT AT BEDTIME 01/29/2017 05/06/2017 Inactive Chantix Starting Month Box 0.5 mg (11)-1 mg (42) table ts in dose pack RxNorm: 353992 Tablet(s) PO as directed 01/29/2017 06/01/2017 Inactive Abilify 2 mg tablet RxNorm: 591651 TAKE ONE TABLET BY MOUTH DAILY 0 01/26/2017 04/25/2017 Inactive Chantix Starting Month Box 0.5 mg (11)-1 mg (42) table ts in dose pack RxNorm: 399536 Tablet(s) PO as directed 01/20/2017 01/28/2017 Inactive gabapentin 600 mg tablet RxNorm: 689613 1 Tablet(s) PO TID 01/21/20 17 02/22/2017 Inactive Chantix Continuing Month Box 1 mg tablet RxNorm: 873192 1 Table t(s) PO BID 12/31/2016 06/01/2017 Inactive Spiriva with HandiHaler 18 mcg and inhalation capsules RxNor m: 159011 INHALE THE ENTIRE CONTENTS OF 1 CAPSULE ONCE A DAY USING HANDIHALER 12/31/201607/2017 Inactive Synthroid 112 mcg tablet RxNorm: 429660 TAKE ONE TABLET BY MOUT H DAILY 12/30/2016 03/01/2017 Inactive metformin ER 500 mg tablet,extended release 24 hr RxNorm: 86 0975 TAKE ONE TABLET BY MOUTH DAILY 12/30/2016 03/01/2017 Inactive Premarin 0.45 mg tablet RxNorm: 140442 TAKE ONE TABLET BY MOUTH DAILY 12/30/2016 03/01/2017 Inactive omeprazole 40 mg capsule,delayed release RxNorm: 875840 TAKE ONE CAPSULE BY MOUTH DAILY 12/30/2016 01/25/2018 Inactive Ventolin HFA 90 mcg/actuation aerosol inhaler RxNorm: 956312 INHALE TWO PUFFS BY MOUTH EVERY 4 HOURS NEEDED 12/28/2016 02/13/2017 Inactive fluoxetine 40 mg capsule RxNorm: 974050 TAKE ONE CAPSULE BY BENOIT TH EVERY MORNING 12/15/2016 04/20/2017 Inactive Chantix Continuing Month Box 1 mg tablet RxNorm: 326014 TAKE ONE TABLET BY MOUTH TWICE A DAY 12/04/2016 12/31/2016 Inactive doxycycline hyclate 100 mg capsule RxNorm: 5911771 1 Capsule(s) PO BID 12/01/2016 12/07/2016 Inactive Levaquin 750 mg tablet RxNorm: 351318 1 Tablet(s) PO QD 12/01/2016 Inactive Abilify 2 mg tablet RxNorm: 789811 TAKE ONE TABLET BY MOUTH DAILY 0 11/25/2016 11/30/2016 Inactive Ventolin HFA 90 mcg/actuation aerosol inhaler RxNorm: 204759 INHALE TWO PUFFS BY MOUTH EVERY 4 HOURS NEEDED 11/02/2016 12/19/2016 Inactive Chantix Continuing Month Box 1 mg tablet RxNorm: 641426 Tablet(s) PO as directed 10/30/2016 12/03/2016 Inactive Symbicort 160 mcg-4.5 mcg/actuation HFA aerosol inhaler RxNo rm: 8484250 INHALE TWO PUFFS TWO TIMES A DAY 10/30/2016 03/30/2017 Inactive Abilify 2 mg tablet RxNorm: 840541 1 Tablet(s) PO QD 10/27/201611/24 Inactive amoxicillin 500 mg capsule RxNorm: 986743 1 Capsule(s) PO TID 10/1410/23/2016 Inactive amoxicillin 500 mg capsule RxNorm: 967190 1 Capsule(s) PO TID 10/1410/13/2016 Inactive Synthroid 112 mcg tablet RxNorm: 112742 TAKE ONE TABLET BY MOUT H DAILY 09/28/2016 12/29/2016 Inactive Topamax 100 mg tablet RxNorm: 529857 TAKE ONE TABLET BY MOUTH EVERY NIGHT AT BEDTIME 09/28/2016 01/28/2017 Inactive Premarin 0.45 mg tablet RxNorm: 550313 TAKE ONE TABLET BY MOUTH DAILY 09/28/2016 12/29/2016 Inactive metformin ER 500 mg tablet,extended release 24 hr RxNorm: 86 0975 TAKE ONE TABLET BY MOUTH DAILY 09/28/2016 12/29/2016 Inactive Ventolin HFA 90 mcg/actuation aerosol inhaler RxNorm: 314581 INHALE TWO PUFFS BY MOUTH EVERY 4 HOURS NEEDED 09/22/2016 10/23/2016 Inactive Pulmicort 1 mg/2 mL suspension for nebulization RxNorm: 6168 19 1 Unit Dose INH BID Dx: COPD (J44.9) 09/10/2016 08/16/2017 Inactive Pulmicort 1 mg/2 mL suspension for nebulization RxNorm: 6168 19 1 Unit Dose INH BID 09/10/2016 09/09/2016 Inactive Brovana 15 mcg/2 mL solution for nebulization RxNorm: 125094 1 Unit Dose INH BID Dx: COPD (J44.9) 09/10/2016 01/25/2018 Inactive Brovana 15 mcg/2 mL solution for nebulization RxNorm: 724832 1 Unit Dose INH BID 09/10/2016 09/09/2016 Inactive ipratropium-albuterol 0.5 mg-3 mg(2.5 mg base)/3 mL ne bulization soln RxNorm: 9582013 1 Unit Dose INH Q4H as needed Dx: COPD (J44.9) 09/10/2016 0 02/12/2019 Inactive orphenadrine citrate ER 100 mg tablet,extended release RxNor m: 232713 1 Tablet(s) PO BID for muscle spasm--replaces methocarbamol 09/09/2016 Inactive Chantix Continuing Month Box 1 mg tablet RxNorm: 467131 Tablet(s) PO as directed 09/09/2016 10/30/2016 Inactive orphenadrine citrate ER 100 mg tablet,extended release RxNor m: 494638 1 Tablet(s) PO BID for muscle spasm 09/09/2016 09/08/2016 Inactive Spiriva with HandiHaler 18 mcg and inhalation capsules RxNor m: 811881 INHALE THE ENTIRE CONTENTS OF 1 CAPSULE ONCE A DAY USING HANDIHALER 09/01/201605/2017 Inactive Daliresp 500 mcg tablet RxNorm: 6239962 1 Tablet(s) PO QD 08/27/2016 03/01/2017 Inactive prednisone 20 mg tablet RxNorm: 383659 3 Tablet(s) PO T ID for 3 days then 1 po BID for 3 days then one daily for 3 days 08/26/2016 04/28/2017 Inactiv e Wellbutrin XL 300 mg 24 hr tablet, extended release RxNorm: 762025 TAKE ONE TABLET BY MOUTH EVERY MORNING 07/29/2016 10/26/2016 Inactive gabapentin 600 mg tablet RxNorm: 774240 1 Tablet(s) PO BID 06/26/20 16 12/22/2016 Inactive fluoxetine 40 mg capsule RxNorm: 327659 TAKE ONE CAPSULE BY BENOIT TH EVERY MORNING 06/24/2016 11/20/2016 Inactive Duragesic 100 mcg/hr transdermal patch RxNorm: 824698 2 Application TD Q48H for pain 06/05/2016 07/04/2016 Inactive oxycodone 10 mg tablet RxNorm: 2472738 1-2 Tablet(s) PO QID as n eeded for pain 06/05/2016 03/17/2017 Inactive Belladonna-Phenobarbital 48 mg tablet,extended release RxNor m: 2 Tablet(s) PO TID 06/05/2016 01/19/2017 Inactive Premarin 0.45 mg tablet RxNorm: 288391 TAKE ONE TABLET BY MOUTH DAILY 05/27/2016 09/23/2016 Inactive Topamax 100 mg tablet RxNorm: 223717 TAKE ONE TABLET BY MOUTH EVERY NIGHT AT BEDTIME 05/27/2016 09/27/2016 Inactive Synthroid 112 mcg tablet RxNorm: 167848 TAKE ONE TABLET BY MOUT H DAILY 05/27/2016 09/23/2016 Inactive metformin ER 500 mg tablet,extended release 24 hr RxNorm: 86 0975 TAKE ONE TABLET BY MOUTH DAILY 05/27/2016 09/23/2016 Inactive Symbicort 160 mcg-4.5 mcg/actuation HFA aerosol inhaler RxNo rm: 6709942 INHALE TWO PUFFS TWO TIMES A DAY 05/27/2016 10/23/2016 Inactive Ventolin HFA 90 mcg/actuation aerosol inhaler RxNorm: 091789 INHALE TWO PUFFS BY MOUTH EVERY 4 HOURS NEEDED 05/21/2016 07/07/2016 Inactive omeprazole 40 mg capsule,delayed release RxNorm: 410248 1 Capsu le(s) PO QD 05/06/2016 08/03/2016 Inactive metformin ER 500 mg tablet,extended release 24 hr RxNorm: 86 0975 TAKE ONE TABLET BY MOUTH DAILY 04/23/2016 05/22/2016 Inactive methocarbamol 750 mg tablet RxNorm: 741686 2 Tablet(s) PO TID as needed for muscle spasm 04/23/2016 09/08/2016 Inactive Synthroid 112 mcg tablet RxNorm: 099133 TAKE ONE TABLET BY MOUT H DAILY 04/23/2016 05/22/2016 Inactive Spiriva with HandiHaler 18 mcg and inhalation capsules RxNor m: 301795 INHALE THE ENTIRE CONTENTS OF 1 CAPSULE ONCE A DAY USING HANDIHALER 04/09/201608/2016 Inactive Diflucan 100 mg tablet RxNorm: 418333 1 Tablet(s) PO QD 04/08/2016 Inactive doxycycline hyclate 100 mg capsule RxNorm: 6266512 1 Capsule(s) PO BID 04/08/2016 04/17/2016 Inactive doxycycline hyclate 100 mg capsule RxNorm: 4750732 1 Capsule(s) PO BID 04/08/2016 04/07/2016 Inactive Diflucan 100 mg tablet RxNorm: 349701 1 Tablet(s) PO QD 04/08/2016 Inactive ondansetron HCl 4 mg tablet RxNorm: 241951 1 Tablet(s) PO Q4H as needed for nausea and vomiting 04/08/2016 09/22/2017 Inactive gabapentin 600 mg tablet RxNorm: 289240 TAKE ONE TABLET BY MOUT H TWICE A DAY 03/24/2016 06/25/2016 Inactive Synthroid 112 mcg tablet RxNorm: 955937 TAKE ONE TABLET BY MOUT H DAILY 02/25/2016 04/22/2016 Inactive Levaquin 500 mg tablet RxNorm: 150197 1 Tablet(s) PO QD 01/23/2016 Inactive prednisone 20 mg tablet RxNorm: 186178 1 Tablet(s) PO T ID for 3 days then 1 po BID for 3 days then one daily for 3 days 01/23/2016 08/25/2016 Inactiv e [employer] Ultra Test strips RxNorm: TEST BLOOD SUGAR ONCE DAILY 250.00 01/09/2016 11/04/2017 Inactive methocarbamol 750 mg tablet RxNorm: 272504 2 Tablet(s) PO TID as needed for muscle spasm 01/09/2016 04/23/2016 Inactive lactulose 10 gram/15 mL oral solution RxNorm: 958088 [address](s) PO QD 01/09/2016 09/22/2017 Inactive TAKE 1 TABLESPOON BY MOUTH ONCE DAILY metformin ER 500 mg tablet,extended release 24 hr RxNorm: 86 0975 1 Tablet(s) PO QD 12/26/2015 04/22/2016 Inactive fluoxetine 20 mg capsule RxNorm: 417177 1 Capsule(s) PO QD 12/23/19 16 06/19/2016 Inactive Premarin 0.45 mg tablet RxNorm: 193661 TAKE ONE TABLET BY MOUTH DAILY 12/23/2015 05/20/2016 Inactive fluoxetine 40 mg capsule RxNorm: 721409 1 Capsule(s) PO QD 12/23/19 16 06/19/2016 Inactive TAKE ONE CAPSULE BY MOUTH EV JANKI MORNING azithromycin 500 mg tablet RxNorm: 825712 1 Tablet(s) PO QD 016 12/19/2015 Inactive Zofran 4 mg tablet RxNorm: 926800 1 Tablet(s) PO Q4H prn nausea /vomiting 12/13/2015 03/30/2018 Inactive azithromycin 500 mg tablet RxNorm: 687769 1 Tablet(s) PO QD 016 12/12/2015 Inactive Duragesic 100 mcg/hr transdermal patch RxNorm: 634502 2 Application TD Q48H for pain 12/09/2015 01/07/2016 Inactive oxycodone 10 mg tablet RxNorm: 3511867 1-2 Tablet(s) PO QID as n eeded for pain 12/09/2015 06/04/2016 Inactive Bactroban 2 % topical cream RxNorm: 160858 Application TOP BID 11/2208/25/2016 Inactive doxycycline hyclate 100 mg capsule RxNorm: 4921489 1 Capsule(s) PO BID 12/03/2015 12/12/2015 Inactive Topamax 100 mg tablet RxNorm: 519331 TAKE ONE TABLET BY MOUTH EVERY NIGHT AT BEDTIME 11/25/2015 05/22/2016 Inactive Symbicort 160 mcg-4.5 mcg/actuation HFA aerosol inhaler RxNo rm: 3583303 INHALE TWO PUFFS TWO TIMES A DAY 11/25/2015 05/22/2016 Inactive Synthroid 112 mcg tablet RxNorm: 420381 Tablet(s) TAKE ONE TABLET BY MOUTH DAILY 11/25/2015 02/22/2016 Inactive omeprazole 40 mg capsule,delayed release RxNorm: 896681 1 Capsu le(s) PO QD 11/12/2015 05/05/2016 Inactive oxycodone 10 mg tablet RxNorm: 1483567 1-2 Tablet(s) PO QID as n eeded for pain 11/05/2015 12/08/2015 Inactive Duragesic 100 mcg/hr transdermal patch RxNorm: 320063 2 Application TD Q48H for pain 11/05/2015 12/04/2015 Inactive omeprazole 40 mg capsule,delayed release RxNorm: 671465 1 Capsu le(s) PO QD 10/07/2015 11/11/2015 Inactive Januvia 100 mg tablet RxNorm: 190130 TAKE ONE TABLET BY MOUTH DAILY 09/11/2015 12/25/2015 Inactive Zithromax 500 mg tablet RxNorm: 356208 1 Tablet(s) PO QD 09/10/2015 1 Inactive prednisone 20 mg tablet RxNorm: 683412 1 Tablet(s) PO T ID for 3 days then 1 po BID for 3 days then one daily for 3 days 09/10/2015 08/25/2016 Inactiv e Wellbutrin XL 300 mg 24 hr tablet, extended release RxNorm: 462416 1 Tablet(s) PO QAM 09/10/2015 12/02/2015 Inactive Topamax 100 mg tablet RxNorm: 723557 TAKE ONE TABLET BY MOUTH EVERY NIGHT AT BEDTIME 09/02/2015 11/24/2015 Inactive Synthroid 112 mcg tablet RxNorm: 038638 TAKE ONE TABLET BY MOUT H DAILY 09/02/2015 11/25/2015 Inactive methocarbamol 750 mg tablet RxNorm: 644037 2 Tablet(s) PO TID as needed for muscle spasm 08/15/2015 01/09/2016 Inactive Wellbutrin XL 150 mg 24 hr tablet, extended release RxNorm: 189246 TAKE ONE TABLET BY MOUTH EVERY MORNING 08/13/2015 08/13/2015 Inactive gabapentin 600 mg tablet RxNorm: 828261 1 Tablet(s) PO BID 08/13/20 15 02/08/2016 Inactive Wellbutrin XL 300 mg 24 hr tablet, extended release RxNorm: 408552 1 Tablet(s) PO QAM 08/06/2015 09/09/2015 Inactive Wellbutrin XL 150 mg 24 hr tablet, extended release RxNorm: 511014 1 Tablet(s) PO QAM 07/18/2015 08/05/2015 Inactive prednisone 20 mg tablet RxNorm: 184065 1 Tablet(s) PO BID 07/18/2015 07/22/2015 Inactive doxycycline hyclate 100 mg tablet,delayed release RxNorm: 43 4018 1 Tablet(s) PO BID 07/18/2015 07/27/2015 Inactive pravastatin 40 mg tablet RxNorm: 506305 1 Tablet(s) PO QD NEEDS FASTING LAB 07/15/2015 07/14/2015 Inactive pravastatin 40 mg tablet RxNorm: 403277 1 Tablet(s) PO QD NEEDS FASTING LAB 07/15/2015 01/25/2018 Inactive Ventolin HFA 90 mcg/actuation aerosol inhaler RxNorm: 777212 2 Puff(s) INH Q4H 07/08/2015 07/07/2015 Inactive prn Premarin 0.45 mg tablet RxNorm: 791581 1 Tablet(s) PO QD 07/01/2015 0 12/22/2015 Inactive pravastatin 40 mg tablet RxNorm: 965477 1 Tablet(s) PO QD NEEDS FASTING LAB 06/14/2015 07/15/2015 Inactive Ventolin HFA 90 mcg/actuation aerosol inhaler RxNorm: 7735687 2 Puff(s) INH Q4H 06/06/2015 07/08/2015 Inactive prn albuterol sulfate 2.5 mg/3 mL (0.083 %) solution for n ebulization RxNorm: 765674 1 Unit Dose INH QID 05/30/2015 No Stop Date Active Duragesic 100 mcg/hr transdermal patch RxNorm: 716092 2 Application TD Q48H for pain 04/29/2015 05/28/2015 Inactive gabapentin 600 mg tablet RxNorm: 684302 1 Tablet(s) PO BID 04/11/20 15 08/13/2015 Inactive Onglyza 5 mg tablet RxNorm: 911736 1 Tablet(s) PO QD for blood suga r 04/10/2015 04/15/2015 Inactive [Brand Copay Card: RxBIN:[id number] N:CRISTIANA RxGRP:[id number] ID#:[id number]] methocarbamol 750 mg tablet RxNorm: 751699 2 Tablet(s) PO TID as needed for muscle spasm 03/28/2015 08/15/2015 Inactive pravastatin 40 mg tablet RxNorm: 123406 1 Tablet(s) PO QD 03/19/2015 03/18/2015 Inactive pravastatin 40 mg tablet RxNorm: 961934 1 Tablet(s) PO QD 03/19/2015 06/14/2015 Inactive lactulose 10 gram/15 mL oral solution RxNorm: 981407 [address]s) PO QD 03/07/2015 01/09/2016 Inactive TAKE 1 TABLESPOON BY MOUTH ONCE DAILY oxycodone 20 mg tablet RxNorm: 8327906 1 Tablet(s) PO QID as nee ded for pain 03/05/2015 07/08/2015 Inactive Topamax 100 mg tablet RxNorm: 077709 1 Tablet(s) PO QHS TAKE ONE TABLET BY MOUTH AT BEDTIME 02/25/2015 02/12/2019 Inactive metformin ER 500 mg tablet,extended release 24 hr RxNorm: 86 0975 1 Tablet(s) PO QD 02/11/2015 03/04/2015 Inactive take one tablet by mouth every day Daliresp 500 mcg tablet RxNorm: 6028483 1 Tablet(s) PO QD 02/11/2015 08/09/2015 Inactive Endocet 10 mg-325 mg tablet RxNorm: 1912489 1 Tablet(s) PO Q4H as needed for pain 01/23/2015 01/23/2015 Inactive gabapentin 600 mg tablet RxNorm: 567903 1 Tablet(s) PO BID 01/23/20 15 04/11/2015 Inactive methocarbamol 750 mg tablet RxNorm: 320695 2 Tablet(s) PO TID as needed for muscle spasm 01/15/2015 02/13/2015 Inactive fluoxetine 40 mg capsule RxNorm: 265967 1 Capsule(s) PO QD 01/14/20 15 12/23/2015 Inactive TAKE ONE CAPSULE BY MOUTH EV JANKI MORNING fluoxetine 20 mg capsule RxNorm: 219282 1 Capsule(s) PO QD 01/14/20 15 12/23/2015 Inactive Premarin 0.45 mg tablet RxNorm: 060144 1 Tablet(s) PO QD 01/02/2015 0 07/01/2015 Inactive Endocet 10 mg-325 mg tablet RxNorm: 9443297 1-2 Tablet(s) PO Q4H 02/12/2019 Inactive PRN PAIN Duragesic 100 mcg/hr transdermal patch RxNorm: 054302 2 Application TD Q48H for pain 12/25/2014 01/23/2015 Inactive Topamax 100 mg tablet RxNorm: 943736 1 Tablet(s) PO QHS TAKE ONE TABLET BY MOUTH AT BEDTIME 12/25/2014 02/24/2015 Inactive Tudorza Pressair 400 mcg/actuation breath activated RxNorm: 7723164 1 BID INHALE ONE PUFF INTO LUNGS TWO TIMES A DAY 12/17/2014 05/15/2015 Inactive Endocet 10 mg-325 mg tablet RxNorm: 1220244 1-2 Tablet(s) PO Q4H 12/19/2014 Inactive PRN PAIN Duragesic 100 mcg/hr transdermal patch RxNorm: 352664 2 Application TD Q48H for pain 11/20/2014 12/24/2014 Inactive [employer] Ultra Test strips RxNorm: TEST BLOOD SUGAR ONCE DAILY 250.00 11/16/2014 01/08/2016 Inactive omeprazole 40 mg capsule,delayed release RxNorm: 010239 1 Capsu le(s) PO QD 11/13/2014 11/12/2015 Inactive metformin ER 500 mg tablet,extended release 24 hr RxNorm: 86 0975 1 Tablet(s) PO QD 11/12/2014 02/11/2015 Inactive take one tablet by mouth every day Symbicort 160 mcg-4.5 mcg/actuation HFA aerosol inhaler RxNo rm: 6168462 2 Puff(s) INH BID 11/12/2014 03/11/2015 Inactive INHALE 2 PUFFS O RALLY TWO TIMES A DAY gabapentin 800 mg tablet RxNorm: 012708 1 Tablet(s) PO QD TAKE ONE TABLET BY MOUTH ONCE A DAY 10/22/2014 01/01/2015 Inactive Endocet 10 mg-325 mg tablet RxNorm: 3072634 1-2 Tablet(s) PO Q4H 11/15/2014 Inactive PRN PAIN Duragesic 100 mcg/hr transdermal patch RxNorm: 189573 2 Application TD Q48H for pain 10/17/2014 11/19/2014 Inactive gabapentin 800 mg tablet RxNorm: 064719 1 Tablet(s) PO QD TAKE ONE TABLET BY MOUTH ONCE A DAY 10/04/2014 10/21/2014 Inactive Premarin 0.9 mg tablet RxNorm: 429978 1 Tablet(s) PO QD TAKE ONE TABLET BY MOUTH ONCE A DAY 10/04/2014 01/01/2015 Inactive Spiriva with HandiHaler 18 mcg & inhalation capsules RxNorm: 254220 1 Capsule(s) INH QD 10/03/2014 04/30/2015 Inactive Levaquin 500 mg tablet RxNorm: 422778 1 Tablet(s) PO QD 10/03/2014 Inactive prednisone 20 mg tablet RxNorm: 652789 1 Tablet(s) PO QD 10/03/2014 1 12/09/2013 Inactive Duragesic 100 mcg/hr transdermal patch RxNorm: 163915 2 Application TD Q48H for pain 09/18/2014 10/16/2014 Inactive Endocet 10 mg-325 mg tablet RxNorm: 0541416 1-2 Tablet(s) PO Q4H 10/16/2014 Inactive PRN PAIN Synthroid 112 mcg tablet RxNorm: 850588 1 Tablet(s) QD 09/10/2014 Inactive Synthroid 112 mcg tablet RxNorm: 988544 TAKE ONE TABLET BY MOUTH ONE TIME A DAY. NEEDS LABS 09/10/2014 02/06/2015 Inactive omeprazole 40 mg capsule,delayed release RxNorm: 281842 1 Capsu le(s) PO QD 09/03/2014 11/13/2014 Inactive omeprazole 40 mg capsule,delayed release RxNorm: 556745 1 Capsu le(s) PO QD 09/03/2014 09/02/2014 Inactive Spiriva with HandiHaler 18 mcg & inhalation capsules RxNorm: 976925 1 Capsule(s) INH QD 08/27/2014 10/02/2014 Inactive gabapentin 600 mg tablet RxNorm: 146765 1 Tablet(s) PO BID 08/27/20 14 10/22/2014 Inactive Endocet 10 mg-325 mg tablet RxNorm: 3092694 1-2 Tablet(s) PO Q4H 09/17/2014 Inactive PRN PAIN fentanyl 100 mcg/hr transdermal patch RxNorm: 512321 1 Unit Dos e TD QD 08/21/2014 09/19/2014 Inactive Daliresp 500 mcg tablet RxNorm: 2868435 1 Tablet(s) PO QD 08/13/2014 02/11/2015 Inactive Synthroid 112 mcg tablet RxNorm: 837887 TAKE ONE TABLET BY MOUTH ONE TIME A DAY. NEEDS LABS 08/10/2014 09/10/2014 Inactive Endocet 10 mg-325 mg tablet RxNorm: 0934297 1-2 Tablet(s) PO Q4H 08/17/2014 Inactive PRN PAIN Duragesic 100 mcg/hr transdermal patch RxNorm: 325607 2 Application TD Q48H for pain 07/19/2014 09/17/2014 Inactive fluoxetine 40 mg capsule RxNorm: 864780 1 Capsule(s) PO QD 07/17/20 14 01/14/2015 Inactive TAKE ONE CAPSULE BY MOUTH EV JANKI MORNING fluoxetine 20 mg capsule RxNorm: 809290 1 Capsule(s) PO QD 07/17/20 14 01/14/2015 Inactive Spiriva with HandiHaler 18 mcg & inhalation capsules RxNorm: 457427 1 Capsule(s) INH QD 07/17/2014 08/26/2014 Inactive INHALE CONTENTS OF 1 CAPSULE(S) WITH HANDIHALER ONCE DAILY Zofran 4 mg tablet RxNorm: 979676 1 Tablet(s) PO Q4H prn nausea 07/25/2014 Inactive Synthroid 112 mcg tablet RxNorm: 857933 1 Tablet(s) PO QD 07/09/2014 07/09/2014 Inactive methocarbamol 750 mg tablet RxNorm: 299490 2 Tablet(s) PO TID as needed for muscle spasm 07/09/2014 09/06/2014 Inactive Synthroid 112 mcg tablet RxNorm: 078698 1 Tablet(s) PO QD - nee d labs 07/09/2014 08/07/2014 Inactive Medrol (Aníbal) 4 mg tablets in a dose pack RxNorm: 251426 6 Tablet(s) PO QD --then as directed 07/03/2014 07/08/2014 Inactive Tudorza Pressair 400 mcg/actuation breath activated RxNorm: 3989149 1 Puff(s) INH BID 07/03/2014 12/17/2014 Inactive cefdinir 300 mg capsule RxNorm: 542732 1 Capsule(s) PO BID 07/03/20 14 07/12/2014 Inactive Topamax 100 mg tablet RxNorm: 747850 Tablet(s) TAKE ONE TABLET BY MOUTH AT BEDTIME 07/02/2014 02/25/2015 Inactive Duragesic 100 mcg/hr transdermal patch RxNorm: 971935 2 Application TD Q48H for pain 06/25/2014 07/18/2014 Inactive Endocet 10 mg-325 mg tablet RxNorm: 2680610 1-2 Tablet(s) PO Q4H 07/18/2014 Inactive PRN PAIN metformin ER 500 mg tablet,extended release 24 hr RxNorm: 86 0975 1 Tablet(s) PO QD Needs labs 06/18/2014 07/01/2014 Inactive take one tablet by mouth every day Duragesic 100 mcg/hr transdermal patch RxNorm: 069895 2 Application TD Q48H for pain 05/22/2014 06/24/2014 Inactive Synthroid 112 mcg tablet RxNorm: 677406 1 Tablet(s) PO QD 05/22/2014 07/09/2014 Inactive Endocet 10 mg-325 mg tablet RxNorm: 0483960 1-2 Tablet(s) PO Q4H 06/20/2014 Inactive PRN PAIN Endocet 10 mg-325 mg tablet RxNorm: 1768472 1-2 Tablet(s) PO Q4H 05/21/2014 Inactive PRN PAIN Duragesic 100 mcg/hr transdermal patch RxNorm: 011114 2 Application TD Q48H for pain 04/25/2014 05/21/2014 Inactive Daliresp 500 mcg tablet RxNorm: 3111267 1 Tablet(s) PO QD 04/24/2014 08/13/2014 Inactive Symbicort 160 mcg-4.5 mcg/actuation HFA aerosol inhaler RxNo rm: 8706808 2 Puff(s) INH BID 04/24/2014 08/21/2014 Inactive INHALE 2 PUFFS O RALLY TWO TIMES A DAY metformin ER 500 mg tablet,extended release 24 hr RxNorm: 86 0975 1 Tablet(s) PO QD 04/24/2014 11/12/2014 Inactive TAKE ONE TABLET BY MOUTH EVERY DAY [AttnRPh:Saving Apply/Adjudicate RxGRP:LDMGRP RxBIN:[id number] RxPCN:2012 PCode:01 ID#:[id number]] Symbicort 160 mcg-4.5 mcg/actuation HFA aerosol inhaler RxNo rm: 2038422 2 Puff(s) INH BID 04/24/2014 11/12/2014 Inactive INHALE 2 PUFFS O RALLY TWO TIMES A DAY Premarin 0.9 mg tablet RxNorm: 124328 1 Tablet(s) PO QD 04/24/2014 Inactive TAKE ONE TABLET BY MOUTH EVERY DAY metformin ER 500 mg tablet,extended release 24 hr RxNorm: 86 0975 1 Tablet(s) PO QD Needs labs 04/24/2014 06/18/2014 Inactive TAKE ONE TABLET BY MOUTH EVERY DAY [AttnRPh:Saving Apply/Adjudicate RxGRP:LDMGRP RxBIN:[id number] RxPCN:2012 PCode:01 ID#:[id number]] gabapentin 800 mg tablet RxNorm: 466816 1 Tablet(s) PO QD 04/24/2014 10/04/2014 Inactive TAKE ONE TABLET BY MOUTH EVERY DAY Topamax 100 mg tablet RxNorm: 964092 1 Tablet(s) PO QHS 04/17/2014 Inactive Topamax 100 mg tablet RxNorm: 325902 TAKE ONE TABLET BY MOUTH A T BEDTIME 04/17/2014 07/01/2014 Inactive Tudorza Pressair 400 mcg/actuation breath activated RxNorm: 9326525 1 Puff(s) INH BID 04/11/2014 07/02/2014 Inactive Duragesic 100 mcg/hr transdermal patch RxNorm: 197579 2 Application TD Q48H for pain 03/27/2014 04/24/2014 Inactive Endocet 10 mg-325 mg tablet RxNorm: 4720455 1-2 Tablet(s) PO Q4H 04/24/2014 Inactive PRN PAIN Robaxin 750 mg tablet RxNorm: 716079 2 Tablet(s) PO TID as need ed for spasm 02/23/2014 03/28/2015 Inactive Duragesic 100 mcg/hr transdermal patch RxNorm: 357817 2 Application TD Q48H for pain 02/23/2014 No Stop Date Active Endocet 10 mg-325 mg tablet RxNorm: 1832984 1-2 Tablet(s) PO Q4H 03/23/2014 Inactive PRN PAIN Synthroid 112 mcg tablet RxNorm: 378128 1 Tablet(s) PO QD TAKE ONE TABLET BY MOUTH EVERY DAY 02/15/2014 05/22/2014 Inactive Zithromax 500 mg tablet RxNorm: 626317 1 Tablet(s) PO QD 01/30/2014 0 02/05/2014 Inactive Diflucan 100 mg tablet RxNorm: 604558 1 Tablet(s) PO QD 01/30/2014 Inactive prednisone 20 mg tablet RxNorm: 284408 1 Tablet(s) PO BID 01/30/2014 02/05/2014 Inactive fluoxetine 40 mg capsule RxNorm: 041657 1 Capsule(s) PO QD 01/23/20 14 07/16/2014 Inactive TAKE ONE CAPSULE BY MOUTH EV JANKI MORNING fluoxetine 40 mg capsule RxNorm: 853199 1 Capsule(s) PO QD 01/23/20 14 07/17/2014 Inactive TAKE ONE CAPSULE BY MOUTH EV JANKI MORNING cefdinir 300 mg capsule RxNorm: 756483 1 Capsule(s) PO BID 01/16/20 14 01/29/2014 Inactive Zithromax 500 mg tablet RxNorm: 560331 1 Tablet(s) PO QD 01/16/2014 0 01/22/2014 Inactive prednisone 20 mg tablet RxNorm: 146614 1 Tablet(s) PO BID 01/16/2014 01/22/2014 Inactive Spiriva with HandiHaler 18 mcg and inhalation capsules RxNor m: 115202 1 Capsule(s) INH QD 12/18/2013 07/17/2014 Inactive INHALE CONTENT S OF 1 CAPSULE(S) WITH HANDIHALER ONCE DAILY fluoxetine 20 mg capsule RxNorm: 736132 1 Capsule(s) PO QD 12/18/19 14 06/15/2014 Inactive Spiriva with HandiHaler 18 mcg & inhalation capsules RxNorm: 448881 1 Capsule(s) INH QD 12/18/2013 06/15/2014 Inactive INHALE CONTENTS OF 1 CAPSULE(S) WITH HANDIHALER ONCE DAILY fluoxetine 20 mg capsule RxNorm: 496143 1 Capsule(s) PO QD 12/18/19 14 07/17/2014 Inactive cefdinir 300 mg capsule RxNorm: 484212 2 Capsule(s) PO QD 12/12/2013 12/21/2013 Inactive Duragesic 100 mcg/hr transdermal patch RxNorm: 343910 2 Application TD Q48H for pain 12/08/2013 12/07/2013 Inactive Topamax 100 mg tablet RxNorm: 670311 1 Tablet(s) PO QHS 12/04/2013 Inactive Endocet 10 mg-325 mg tablet RxNorm: 5968530 1-2 Tablet(s) PO Q4H 12/26/2013 Inactive PRN PAIN Robaxin 750 mg tablet RxNorm: 645257 2 Tablet(s) PO TID as need ed for spasm 11/07/2013 01/05/2014 Inactive gabapentin 800 mg tablet RxNorm: 373812 1 Tablet(s) PO QD 10/16/2013 04/24/2014 Inactive TAKE ONE TABLET BY MOUTH EVERY DAY Symbicort 160 mcg-4.5 mcg/actuation HFA aerosol inhaler RxNo rm: 2979230 2 Puff(s) INH BID 10/16/2013 04/24/2014 Inactive INHALE 2 PUFFS O RALLY TWO TIMES A DAY Premarin 0.9 mg tablet RxNorm: 857696 1 Tablet(s) PO QD 10/16/2013 Inactive TAKE ONE TABLET BY MOUTH EVERY DAY metformin ER 500 mg tablet,extended release 24 hr RxNorm: 86 0975 1 Tablet(s) PO QD 10/16/2013 04/24/2014 Inactive TAKE ONE TABLET BY MOUTH EVERY DAY Daliresp 500 mcg tablet RxNorm: 6695063 1 Tablet(s) PO QD 10/16/2013 04/24/2014 Inactive Robaxin 750 mg tablet RxNorm: 337968 2 Tablet(s) PO TID as need ed for spasm 10/10/2013 11/06/2013 Inactive Duragesic 100 mcg/hr transdermal patch RxNorm: 235287 2 Application TD Q48H for pain 10/09/2013 No Stop Date Active Soma 350 mg tablet RxNorm: 446142 1 Tablet(s) PO TID 09/27/201310/09 Inactive TAKE ONE TABLET BY MOUTH THREE TIMES A D AY lactulose 10 gram/15 mL oral solution RxNorm: 099503 [address](s) PO QD 09/13/2013 03/07/2015 Inactive TAKE 1 TABLESPOON BY MOUTH ONCE DAILY Duragesic 100 mcg/hr transdermal patch RxNorm: 009299 2 Application TD Q48H for pain 09/06/2013 No Stop Date Active Endocet 10 mg-325 mg tablet RxNorm: 7277906 1-2 Tablet(s) PO Q4H 09/27/2013 Inactive PRN PAIN lancets 28 gauge RxNorm: Miscellaneous As needed for blo od glucose sticks 08/24/2013 No Stop Date Active 16.2 mg-0.1037 mg-0.0194 mg tablet RxNorm: 0476596 Tablet(s) PO PRN for gas and cramping 08/24/2013 01/19/2017 Inactive TAKE TWO TABLET S BY MOUTH THREE TIMES A DAY NEEDED FOR GAS AND CRAMPING Topamax 100 mg tablet RxNorm: 659740 1 Tablet(s) PO QHS 07/31/2013 Inactive Diflucan 100 mg tablet RxNorm: 457518 1 Tablet(s) PO QD 07/27/2013 Inactive cefdinir 300 mg capsule RxNorm: 592556 1 Capsule(s) PO BID 07/26/20 13 08/08/2013 Inactive Daliresp 500 mcg tablet RxNorm: 0057947 1 Tablet(s) PO QD 07/25/2013 10/15/2013 Inactive fluoxetine 40 mg capsule RxNorm: 722854 1 Capsule(s) PO QD 07/25/20 13 01/22/2014 Inactive TAKE ONE CAPSULE BY MOUTH EV JANKI MORNING Senokot-S 8.6 mg-50 mg tablet RxNorm: 5104898 1 Tablet(s) PO BID 10/25/2013 Inactive doxycycline hyclate 100 mg capsule RxNorm: 0377221 1 Capsule(s) PO BID 06/28/2013 07/07/2013 Inactive prednisone 20 mg tablet RxNorm: 208475 1 Tablet(s) PO BID 06/28/2013 07/04/2013 Inactive Zofran 4 mg tablet RxNorm: 934786 1 Tablet(s) PO Q4H prn nausea 03/201307/05/2013 Inactive Spiriva with HandiHaler 18 mcg & inhalation capsules RxNorm: 792300 1 Capsule(s) INH QD 06/26/2013 12/18/2013 Inactive INHALE CONTENTS OF 1 CAPSULE(S) WITH HANDIHALER ONCE DAILY Synthroid 112 mcg tablet RxNorm: 443723 1 Tablet(s) PO QD TAKE ONE TABLET BY MOUTH EVERY DAY 06/19/2013 02/15/2014 Inactive fluoxetine 20 mg capsule RxNorm: 361772 1 Capsule(s) PO QD 06/19/20 13 12/18/2013 Inactive Ventolin HFA 90 mcg/actuation Aerosol Inhaler RxNorm: 4971799 2 Puff(s) INH Q4H 06/05/2013 No Stop Date Active prn Soma 350 mg tablet RxNorm: 327526 1 Tablet(s) PO TID 06/05/201307/04 Inactive TAKE ONE TABLET BY MOUTH THREE TIMES A D AY prednisone 20 mg tablet RxNorm: 936847 1 Tablet(s) PO QD 05/31/2013 0 06/06/2013 Inactive Topamax 100 mg tablet RxNorm: 408365 1 Tablet(s) PO QHS 05/22/2013 Inactive Levaquin 500 mg tablet RxNorm: 034125 1 Tablet(s) PO QD 05/03/2013 Inactive Diflucan 100 mg tablet RxNorm: 270850 1 Tablet(s) PO QD 05/03/2013 Inactive Daliresp 500 mcg tablet RxNorm: 8537530 1 Tablet(s) PO QD 05/01/2013 07/24/2013 Inactive Daliresp 500 mcg tablet RxNorm: 3746851 1 Tablet(s) PO QD 05/01/2013 04/30/2013 Inactive gabapentin 800 mg tablet RxNorm: 242691 1 Tablet(s) PO QD 04/10/2013 10/06/2013 Inactive TAKE ONE TABLET BY MOUTH EVERY DAY metformin ER 500 mg tablet,extended release 24 hr RxNorm: 86 0977 1 Tablet(s) PO QD 04/10/2013 10/06/2013 Inactive TAKE ONE TABLET BY MOUTH EVERY DAY Premarin 0.9 mg tablet RxNorm: 289183 1 Tablet(s) PO QD 04/10/2013 Inactive TAKE ONE TABLET BY MOUTH EVERY DAY Symbicort 160 mcg-4.5 mcg/actuation HFA aerosol inhaler RxNo rm: 0393425 2 Puff(s) INH BID 04/10/2013 10/06/2013 Inactive INHALE 2 PUFFS O RALLY TWO TIMES A DAY Synthroid 112 mcg tablet RxNorm: 710562 1 Tablet(s) PO QD TAKE ONE TABLET BY MOUTH EVERY DAY 04/10/2013 06/18/2013 Inactive Ventolin HFA 90 mcg/actuation Aerosol Inhaler RxNorm: 644674 2 Puff(s) INH Q4H 04/10/2013 No Stop Date Active prn fentanyl 100 mcg/hr transdermal patch RxNorm: 480391 1 Unit Dos e TD QD 04/03/2013 05/02/2013 Inactive Endocet 10 mg-325 mg tablet RxNorm: 2653705 1-2 Tablet(s) PO Q4H 05/02/2013 Inactive PRN PAIN Topamax 100 mg tablet RxNorm: 919138 1 Tablet(s) PO QHS 03/13/2013 Inactive Reglan 10 mg tablet RxNorm: 299116 1 Tablet(s) PO QID b efore meals and at bedtime 03/13/2013 04/09/2015 Inactive fluoxetine 20 mg capsule RxNorm: 898249 1 Capsule(s) PO QD 02/28/20 13 05/27/2013 Inactive Ventolin HFA 90 mcg/actuation Aerosol Inhaler RxNorm: 781057 2 Puff(s) INH Q4H 02/13/2013 No Stop Date Active prn fluoxetine 40 mg capsule RxNorm: 924314 1 Capsule(s) PO QD 01/31/20 13 07/24/2013 Inactive TAKE ONE CAPSULE BY MOUTH EV JANKI MORNING Soma 350 mg tablet RxNorm: 311830 1 Tablet(s) PO TID 01/20/201302/18 Inactive TAKE ONE TABLET BY MOUTH THREE TIMES A D AY Endocet 10 mg-325 mg tablet RxNorm: 8386453 1-2 Tablet(s) PO Q4H 02/06/2013 Inactive PRN PAIN MS Contin 200 mg tablet,extended release RxNorm: 335972 1 Table t(s) PO BID 01/18/2013 02/06/2013 Inactive Ventolin HFA 90 mcg/actuation Aerosol Inhaler RxNorm: 336752 2 Puff(s) INH Q4H 01/04/2013 No Stop Date Active prn Spiriva with HandiHaler 18 mcg & inhalation capsules RxNorm: 063440 1 Capsule(s) INH QD 12/29/2012 06/25/2013 Inactive INHALE CONTENTS OF 1 CAPSULE(S) WITH HANDIHALER ONCE DAILY Spiriva with HandiHaler 18 mcg & inhalation capsules RxNorm: 607789 1 Capsule(s) INH QD 12/26/2012 12/28/2012 Inactive INHALE CONTENTS OF 1 CAPSULE(S) WITH HANDIHALER ONCE DAILY Synthroid 112 mcg tablet RxNorm: 734937 Tablet(s) PO TA KE ONE TABLET BY MOUTH EVERY DAY 12/26/2012 04/09/2013 Inactive Endocet 10 mg-325 mg tablet RxNorm: 2240136 1-2 Tablet(s) PO Q4H 01/17/2013 Inactive PRN PAIN MS Contin 200 mg tablet,extended release RxNorm: 278802 1 Table t(s) PO BID 12/21/2012 01/17/2013 Inactive fluoxetine 20 mg capsule RxNorm: 616026 1 Capsule(s) PO QD 12/06/19 13 02/26/2013 Inactive Synthroid 112 mcg tablet RxNorm: 985444 1 Tablet(s) PO QD 12/06/2012 02/12/2019 Inactive TAKE ONE TABLET BY MOUTH EVERY DAY Ventolin HFA 90 mcg/actuation Aerosol Inhaler RxNorm: 459282 2 Puff(s) INH Q4H 12/06/2012 No Stop Date Active prn Reglan 10 mg tablet RxNorm: 393328 1 Tablet(s) PO QID b efore meals and at bedtime 11/24/2012 03/12/2013 Inactive Topamax 100 mg tablet RxNorm: 415130 1 Tablet(s) PO QHS 11/16/2012 Inactive Ventolin HFA 90 mcg/actuation Aerosol Inhaler RxNorm: 924700 2 Puff(s) INH Q4H 11/09/2012 No Stop Date Active prn gabapentin 800 mg tablet RxNorm: 083307 1 Tablet(s) PO QD 10/27/2012 04/09/2013 Inactive TAKE ONE TABLET BY MOUTH EVERY DAY metformin ER 500 mg tablet,extended release 24 hr RxNorm: 86 0977 1 Tablet(s) PO QD 10/27/2012 04/09/2013 Inactive TAKE ONE TABLET BY MOUTH EVERY DAY Symbicort 160 mcg-4.5 mcg/actuation HFA Aerosol Inhaler RxNo rm: 4019749 2 Puff(s) INH BID 10/27/2012 04/09/2013 Inactive INHALE 2 PUFFS O RALLY TWO TIMES A DAY Premarin 0.9 mg tablet RxNorm: 628335 1 Tablet(s) PO QD 10/27/2012 Inactive TAKE ONE TABLET BY MOUTH EVERY DAY Endocet 10 mg-325 mg tablet RxNorm: 0912279 1-2 Tablet(s) PO Q4H 11/24/2012 Inactive PRN PAIN MS Contin 200 mg tablet,extended release RxNorm: 517990 1 Table t(s) PO BID 10/26/2012 11/24/2012 Inactive Soma 350 mg tablet RxNorm: 253776 1 Tablet(s) PO TID 10/04/201211/02 Inactive TAKE ONE TABLET BY MOUTH THREE TIMES A D AY Ventolin HFA 90 mcg/actuation Aerosol Inhaler RxNorm: 781259 2 Puff(s) INH Q4H 10/03/2012 No Stop Date Active prn Daliresp 500 mcg tablet RxNorm: 3488869 1 Tablet(s) PO QD 09/28/2012 09/27/2012 Inactive Daliresp 500 mcg tablet RxNorm: 4921411 1 Tablet(s) PO QD 09/28/2012 04/25/2013 Inactive fluoxetine 20 mg capsule RxNorm: 822009 1 Capsule(s) PO QD 09/05/2012/06/2012 Inactive Topamax 50 mg tablet RxNorm: 114956 Tablet(s) PO for 1w k then 1 po q HS for 1wk then 2 po q HS 08/29/2012 09/27/2012 Inactive TAKE 1/2 TABLET BY MOUTH AT BEDTIME FOR 1 WEEK, THEN 1 TABLET AT BEDTIME FOR 1 WEEK, THEN 2 TABLETS AT BEDTIME Topamax 100 mg tablet RxNorm: 556400 1 Tablet(s) PO QHS 08/29/2012 Inactive Ventolin HFA 90 mcg/actuation Aerosol Inhaler RxNorm: 565545 2 Puff(s) INH Q4H 08/19/2012 No Stop Date Active prn Ventolin HFA 90 mcg/actuation Aerosol Inhaler RxNorm: 831293 2 Puff(s) INH Q4H 08/15/2012 No Stop Date Active prn Synthroid 112 mcg tablet RxNorm: 219485 1 Tablet(s) PO QD 08/10/2012 11/07/2012 Inactive TAKE ONE TABLET BY MOUTH EVERY DAY Synthroid 112 mcg tablet RxNorm: 466275 1 Tablet(s) PO QD 08/01/2012 08/09/2012 Inactive TAKE ONE TABLET BY MOUTH EVERY DAY Reglan 10 mg tablet RxNorm: 672764 1 Tablet(s) PO QID b efore meals and at bedtime 08/01/2012 11/23/2012 Inactive fluoxetine 40 mg capsule RxNorm: 587718 1 Capsule(s) PO QD 08/01/2001/27/2013 Inactive TAKE ONE CAPSULE BY MOUTH EV JANKI MORNING Ventolin HFA 90 mcg/actuation Aerosol Inhaler RxNorm: 161532 2 Puff(s) INH Q4H 08/01/2012 No Stop Date Active prn Soma 350 mg tablet RxNorm: 506675 1 Tablet(s) PO TID 07/20/201208/18 Inactive TAKE ONE TABLET BY MOUTH THREE TIMES A D AY Spiriva with HandiHaler 18 mcg & inhalation capsules RxNorm: 321503 1 Capsule(s) INH 07/01/2012 12/25/2012 Inactive INHALE CONTENTS OF 1 CAPSULE(S) WITH HANDIHALER ONCE DAILY Zithromax 250 mg Tab RxNorm: 812543 2 Tablet(s) PO QD 06/28/201206/22 Inactive MS Contin 200 mg tablet,extended release RxNorm: 241352 1 Table t(s) PO BID 06/28/2012 07/27/2012 Inactive Endocet 10 mg-325 mg tablet RxNorm: 6713499 1-2 Tablet(s) PO Q4H 07/27/2012 Inactive PRN PAIN Topamax 100 mg tablet RxNorm: 398363 1 Tablet(s) PO QHS 06/28/2012 Inactive 16.2 mg-0.1037 mg-0.0194 mg tablet RxNorm: 4088780 Tablet(s) PO PRN for gas and cramping 06/08/2012 08/23/2013 Inactive TAKE TWO TABLET S BY MOUTH THREE TIMES A DAY NEEDED FOR GAS AND CRAMPING Ventolin HFA 90 mcg/actuation Aerosol Inhaler RxNorm: 948460 2 Puff(s) INH Q4H 05/23/2012 No Stop Date Active prn Ventolin HFA 90 mcg/actuation Aerosol Inhaler RxNorm: 109718 2 Puff(s) INH Q4H 05/11/2012 No Stop Date Active prn Synthroid 112 mcg tablet RxNorm: 968238 1 Tablet(s) PO QD 05/09/2012 07/31/2012 Inactive TAKE ONE TABLET BY MOUTH EVERY DAY gabapentin 800 mg tablet RxNorm: 063805 1 Tablet(s) PO QD 05/09/2012 10/26/2012 Inactive TAKE ONE TABLET BY MOUTH EVERY DAY fluoxetine 40 mg capsule RxNorm: 112824 1 Capsule(s) PO QD 05/09/2007/31/2012 Inactive TAKE ONE CAPSULE BY MOUTH EV JANKI MORNING metformin ER 500 mg tablet,extended release 24 hr RxNorm: 86 0977 1 Tablet(s) PO QD 05/09/2012 10/26/2012 Inactive TAKE ONE TABLET BY MOUTH EVERY DAY Premarin 0.9 mg tablet RxNorm: 518476 1 Tablet(s) PO QD 05/09/2012 Inactive TAKE ONE TABLET BY MOUTH EVERY DAY Symbicort 160 mcg-4.5 mcg/actuation HFA Aerosol Inhaler RxNo rm: 6517328 2 Puff(s) INH BID 05/09/2012 10/26/2012 Inactive INHALE 2 PUFFS O RALLY TWO TIMES A DAY Endocet 10 mg-325 mg Tab RxNorm: 5154094 1-2 Tablet(s) PO Q4H 04/2705/26/2012 Inactive PRN PAIN MS Contin 200 mg Tab RxNorm: 632372 1 Tablet(s) PO BID 04/26/201202/2012 Inactive Ventolin HFA 90 mcg/actuation Aerosol Inhaler RxNorm: 063804 2 Puff(s) INH Q4H 04/25/2012 05/10/2012 Inactive prn Soma 350 mg tablet RxNorm: 508546 2 Tablet(s) PO TID 04/19/201207/19 Inactive TAKE ONE TABLET BY MOUTH THREE TIMES A D AY Ventolin HFA 90 mcg/actuation Aerosol Inhaler RxNorm: 902050 2 Puff(s) INH Q4H 04/12/2012 04/24/2012 Inactive prn Reglan 10 mg tablet RxNorm: 126689 1 Tablet(s) PO QID b efore meals and at bedtime 04/11/2012 07/31/2012 Inactive MS Contin 200 mg Tab RxNorm: 346611 1 Tablet(s) PO BID 03/30/201202/2012 Inactive Endocet 10 mg-325 mg Tab RxNorm: 4437497 1-2 Tablet(s) PO Q4H 03/3004/26/2012 Inactive PRN PAIN MS Contin 200 mg Tab RxNorm: 603284 1 Tablet(s) PO BID 03/02/201206/2012 Inactive Endocet 10 mg-325 mg Tab RxNorm: 0564041 1-2 Tablet(s) PO Q4H 03/0203/29/2012 Inactive PRN PAIN Daliresp 500 mcg tablet RxNorm: 2478624 1 Tablet(s) PO QD 03/01/2012 09/28/2012 Inactive MS Contin 200 mg Tab RxNorm: 479975 1 Tablet(s) PO BID 02/02/201208/2012 Inactive Endocet 10 mg-325 mg Tab RxNorm: 1655631 1-2 Tablet(s) PO Q4H 02/0103/01/2012 Inactive PRN PAIN fluoxetine 40 mg capsule RxNorm: 308466 1 Capsule(s) PO QD 02/02/2008/01/2012 Inactive TAKE ONE CAPSULE BY MOUTH EV JANKI MORNING Synthroid 112 mcg Tab RxNorm: 952584 1 Tablet(s) PO QD 01/18/2012 Inactive TAKE ONE TABLET BY MOUTH EVERY DAY lactulose 10 gram/15 mL oral solution RxNorm: 394422 [address]s) PO QD 01/18/2012 No Stop Date Active TAKE 1 TABLESPOON BY MOUTH ONCE DAILY Ventolin HFA 90 mcg/actuation Aerosol Inhaler RxNorm: 306128 2 Puff(s) INH Q4H 01/18/2012 04/11/2012 Inactive prn MS Contin 200 mg Tab RxNorm: 946322 1 Tablet(s) PO BID 01/05/201210/2012 Inactive Endocet 10 mg-325 mg Tab RxNorm: 9312155 1-2 Tablet(s) PO Q4H 01/0502/01/2012 Inactive PRN PAIN ProAir HFA 90 mcg/Actuation Aerosol Inhaler RxNorm: 734549 2 Pu ff(s) INH Q4H 12/21/2011 No Stop Date Active prn for wheezing or shortness of breath Spiriva with HandiHaler 18 mcg & inhalation Caps RxNorm: 580 261 1 Capsule(s) INH 12/21/2011 06/30/2012 Inactive INHALE CONTENTS OF 1 CAPSULE(S) WITH HANDIHALER ONCE DAILY Reglan 10 mg Tab RxNorm: 259021 1 Tablet(s) PO QID before meals and at bedtime 12/21/2011 04/10/2012 Inactive Synthroid 112 mcg Tab RxNorm: 664963 1 Tablet(s) PO QD 12/21/2011 Inactive TAKE ONE TABLET BY MOUTH EVERY DAY Endocet 10 mg-325 mg Tab RxNorm: 0718739 1-2 Tablet(s) PO Q4H 11/2512/24/2011 Inactive PRN PAIN MS Contin 200 mg Tab RxNorm: 845638 1 Tablet(s) PO BID 11/25/201112/2011 Inactive lactulose 10 gram/15 mL Oral Soln RxNorm: 460409 Milliliter(s) PO 1 No Stop Date Active TAKE 1 TABLESPOON BY MOUTH O NCE DAILY lactulose 10 gram/15 mL Oral Soln RxNorm: 183177 Milliliter(s) PO 1 12/12/2010 11/20/2011 Inactive TAKE 1 TABLESPOON BY MOUTH O NCE DAILY Premarin 0.9 mg Tab RxNorm: 415420 1 Tablet(s) PO QD 10/12/201105/08 Inactive TAKE ONE TABLET BY MOUTH EVERY DAY fluoxetine 20 mg capsule RxNorm: 656530 1 Capsule(s) PO QD 10/12/20 11 09/05/2012 Inactive TAKE ONE CAPSULE BY MOUTH EV JANKI DAY Synthroid 112 mcg Tab RxNorm: 752401 1 Tablet(s) PO QD 10/12/2011 Inactive TAKE ONE TABLET BY MOUTH EVERY DAY metformin ER 500 mg 24 hr Tab RxNorm: 911778 1 Tablet(s) PO QD 09/2311/10/2011 Inactive TAKE ONE TABLET BY MOUTH GLYNN RY DAY Synthroid 112 mcg Tab RxNorm: 772908 1 Tablet(s) PO QD 10/12/2011 Inactive TAKE ONE TABLET BY MOUTH EVERY DAY metformin ER 500 mg 24 hr Tab RxNorm: 434784 1 Tablet(s) PO QD 09/2310/11/2011 Inactive TAKE ONE TABLET BY MOUTH GLYNN RY DAY Prevacid 30 mg Cap RxNorm: 722685 Capsule(s) PO 10/12/2011 01/25/2012 Inactive TAKE ONE CAPSULE BY MOUTH EVERY DAY Symbicort 160 mcg-4.5 mcg/actuation HFA Aerosol Inhaler RxNo rm: 8239730 2 Puff(s) INH BID 10/12/2011 05/08/2012 Inactive INHALE 2 PUFFS O RALLY TWO TIMES A DAY gabapentin 800 mg Tab RxNorm: 663279 1 Tablet(s) PO QD 10/12/2011 Inactive TAKE ONE TABLET BY MOUTH EVERY DAY MS Contin 200 mg Tab RxNorm: 637211 1 Tablet(s) PO BID 09/23/201111/2010 Inactive Endocet 10 mg-325 mg Tab RxNorm: 1473770 1-2 Tablet(s) PO Q4H 09/2310/22/2011 Inactive PRN PAIN Endocet 10 mg-325 mg Tab RxNorm: 4809671 1-2 Tablet(s) PO Q4H 08/2109/19/2011 Inactive PRN PAIN MS Contin 200 mg Tab RxNorm: 443296 1 Tablet(s) PO BID 08/21/2011 Inactive Diflucan 100 mg Tab RxNorm: 661568 1 Tablet(s) PO QD 08/10/201108/16 Inactive cefdinir 300 mg Cap RxNorm: 546490 2 Capsule(s) PO QD 08/10/201107/24 Inactive Reglan 10 mg Tab RxNorm: 254280 1 Tablet(s) PO AC & HS 07/15/2011 Inactive Endocet 10 mg-325 mg Tab RxNorm: 4096262 1-2 Tablet(s) PO Q4H 07/1508/13/2011 Inactive PRN PAIN One Touch Ultra Test strips RxNorm: Miscellaneous BID 06/11/2011 1 01/16/2014 Inactive TEST TWO TIMES A DAY lactulose 10 gram/15 mL Oral Soln RxNorm: 701019 Milliliter(s) PO 0 06/10/2011 10/11/2011 Inactive TAKE 1 TABLESPOON BY MOUTH O NCE DAILY Chantix Continuing Month Aníbal 1 mg Tab RxNorm: 617507 Tablet(s) PO 0 06/10/2011 11/02/2011 Inactive TAKE DIRECTED - PER [employer] GE INSTRUCTIONS fluoxetine 40 mg Cap RxNorm: 218020 Capsule(s) PO 06/10/2011 02/02/20 12 Inactive TAKE ONE CAPSULE BY MOUTH EVERY MORNING Chantix Continuing Month Aníbal 1 mg Tab RxNorm: 465075 Ta blet(s) PO TAKE DIRECTED - PER PACKAGE INSTRUCTIONS 05/13/2011 06/09/2011 Inactive Soma 350 mg Tab RxNorm: 193023 Tablet(s) PO TAKE ON E TABLET BY MOUTH THREE TIMES A DAY 05/13/2011 04/18/2012 Inactive Chantix Continuing Month Aníbal 1 mg Tab RxNorm: 053659 Ta blet(s) PO as directed per package instructions. 04/22/2011 05/12/2011 Inactive Symbicort 160 mcg-4.5 mcg/Actuation HFA Aerosol Inhaler RxNo rm: 0588426 HFA Aerosol Inhaler INH INHALE 2 PUFFS ORALLY TWO TIMES A DAY 04/13/2011 Inactive Synthroid 112 mcg Tab RxNorm: 721878 Tablet(s) PO TAKE ONE TABLET BY MOUTH EVERY DAY 04/13/2011 10/12/2011 Inactive Premarin 0.9 mg Tab RxNorm: 393697 Tablet(s) PO TAKE ON E TABLET BY MOUTH EVERY DAY 04/13/2011 10/12/2011 Inactive gabapentin 800 mg Tab RxNorm: 937149 Tablet(s) PO TAKE ONE TABLET BY MOUTH EVERY DAY 04/13/2011 10/12/2011 Inactive Prevacid 30 mg Cap RxNorm: 860475 1 Capsule(s) PO QD 04/13/201110/11 Inactive Spiriva with HandiHaler 18 mcg & inhalation Caps RxNorm: 580 261 Capsule(s) INH INHALE CONTENTS OF 1 CAPSULE(S) WITH HANDIHALER ONCE DAILY 04/13/2011 12/21/2011 Inactive metformin ER 500 mg 24 hr Tab RxNorm: 034223 Tablet(s) PO TAKE ONE TABLET BY MOUTH EVERY DAY 04/13/2011 10/12/2011 Inactive Soma 350 mg Tab RxNorm: 688501 1 Tablet(s) PO QID 03/30/2011 02/13/20 19 Inactive fluoxetine 20 mg Cap RxNorm: 448857 Capsule(s) PO TAKE ONE CAPSULE BY MOUTH EVERY DAY 03/25/2011 10/12/2011 Inactive cefdinir 300 mg Cap RxNorm: 779722 2 Capsule(s) PO QD 03/19/201105/2011 Inactive 16.2 mg-0.1037 mg-0.0194 mg Tab RxNorm: 4242596 2 Tablet(s) PO TID PRN for gas and cramping 03/16/2011 07/13/2011 Inactive Soma 350 mg Tab RxNorm: 309954 2 Tablet(s) PO TID 03/16/2011 03/29/20 11 Inactive Chantix Starting Month Aníbal 0.5 mg (11)-1 mg (3x14) Tab s in a Dose Pack RxNorm: 889524 Tablet(s) PO as directed 03/02/2011 No Stop Date Active diazepam 10 mg Tab RxNorm: 426065 1 Tablet(s) PO BID 02/10/201101/19 Inactive Zofran 4 mg tablet RxNorm: 217191 1 Tablet(s) PO Q4H prn nausea 02/16/2011 Inactive Diflucan 100 mg Tab RxNorm: 049590 1 Tablet(s) PO QD 01/18/201101/24 Inactive Premarin 0.625 mg/g Vaginal Cream RxNorm: 148665 VAG In sert 1gm vaginally at bedtime 3 times weekly 01/18/2011 02/12/2019 Inactive loratadine 10 mg Tab RxNorm: 5075786 1 Tablet(s) PO QD 12/17/201003/2012 Inactive Spiriva with HandiHaler 18 mcg & inhalation Caps RxNorm: 580 261 1 Capsule(s) INH QD 12/17/2010 04/12/2011 Inactive Diflucan 100 mg Tab RxNorm: 634609 1 Tablet(s) PO QD 12/17/201012/23 Inactive diazepam 10 mg Tab RxNorm: 818508 1 Tablet(s) PO BID and PRN 201002/12/2019 Inactive One Touch Ultra Test Strips RxNorm: InVt BID Zainab t blood sugar at least twice daily. 11/11/2010 06/11/2011 Inactive fluoxetine 40 mg Cap RxNorm: 425671 1 Capsule(s) PO QAM 11/11/2010 Inactive diazepam 10 mg Tab RxNorm: 525936 1 Tablet(s) PO BID and PRN 200911/12/2010 Inactive Bactrim DS 800 mg-160 mg Tab RxNorm: 625959 1 Tablet(s) PO BID 09/2210/15/2010 Inactive fluoxetine 20 mg Cap RxNorm: 918476 1 Capsule(s) PO QD 10/02/201008/2011 Inactive Bactrim DS 800 mg-160 mg Tab RxNorm: 399757 1 Tablet(s) PO BID 01/201010/03/2010 Inactive Zofran 4 mg Tab RxNorm: 514586 1 Tablet(s) PO Q4H prn nausea 200910/16/2010 Inactive 16.2 mg-0.1037 mg-0.0194 mg Tab RxNorm: 3788336 2 Tablet(s) PO TID PRN for gas and cramping 09/17/2010 10/21/2010 Inactive Gabapentin 800 mg Tab RxNorm: 028808 1 Tablet(s) PO QD 09/16/2010 Inactive ProAir HFA 90 mcg/Actuation Aerosol Inhaler RxNorm: 999170 2 Puff(s) INH Q4H prn shortness of breath 09/15/2010 12/13/2010 Inactive gabapentin 800 mg Tab RxNorm: 419161 1 Tablet(s) PO QD 09/15/2010 Inactive Prevacid 30 mg Cap RxNorm: 793217 1 Capsule(s) PO QD 09/15/201004/12 Inactive loratadine 10 mg Tab RxNorm: 6053452 1 Tablet(s) PO QD 09/15/2010 Inactive Premarin 0.9 mg Tab RxNorm: 865665 1 Tablet(s) PO QD 09/15/201004/12 Inactive Synthroid 112 mcg Tab RxNorm: 509437 1 Tablet(s) PO QD 09/15/2010 Inactive metformin ER 500 mg 24 hr Tab RxNorm: 791714 1 Tablet(s) PO QD 08/2304/12/2011 Inactive Symbicort 160 mcg-4.5 mcg/Actuation Inhalation HFA Aer osol Inhaler RxNorm: 3856979 2 Puff(s) INH BID 09/15/2010 04/12/2011 Inactive diazepam 10 mg Tab RxNorm: 558284 1 Tablet(s) PO BID and PRN 200910/13/2010 Inactive Phentermine 37.5 mg Cap RxNorm: 283838 1 Capsule(s) PO QD 09/02/2010 11/02/2011 Inactive ProAir HFA 90 mcg/Actuation Aerosol Inhaler RxNorm: 733225 2 Puff(s) INH Q4H prn shortness of breath 08/07/2010 No Stop Date Active Premarin 0.9 mg Tab RxNorm: 183744 1 Tablet(s) PO QD 08/07/201009/14 Inactive Loratadine 10 mg Tab RxNorm: 3375083 1 Tablet(s) PO QD 08/07/2010 Inactive Lactulose 10 gram/15 mL Oral Soln RxNorm: 921682 1 Unit Dose PO QD 08/07/2010 02/12/2019 Inactive Zofran 4 mg Tab RxNorm: 353315 1 Tablet(s) PO Q4H prn nausea 2009 No Stop Date Active Gabapentin 800 mg Tab RxNorm: 638139 1 Tablet(s) PO QD 08/07/2010 Inactive Synthroid 112 mcg Tab RxNorm: 924228 1 Tablet(s) PO QD 08/07/2010 Inactive Metformin ER 500 mg 24 hr Tab RxNorm: 937491 1 Tablet(s) PO QD 07/2309/14/2010 Inactive Vitamin D 1,000 unit Tab RxNorm: 799688 1 Tablet(s) PO TID 08/07/2002/12/2019 Inactive Symbicort 160 mcg-4.5 mcg/Actuation Inhalation HFA Aer osol Inhaler RxNorm: 9366077 2 Puff(s) INH BID 08/07/2010 09/14/2010 Inactive Prevacid 30 mg Cap RxNorm: 875898 1 Capsule(s) PO QD 08/07/201009/14 Inactive Metformin ER 500 mg 24 hr Tab RxNorm: 664576 1 Tablet(s) PO QD 06/2308/06/2010 Inactive Vitamin D 1,000 unit Tab RxNorm: 895845 1 Tablet(s) PO TID 07/14/2008/06/2010 Inactive Synthroid 112 mcg Tab RxNorm: 999733 1 Tablet(s) PO QD 07/14/2010 Inactive Lactulose 10 gram/15 mL Oral Soln RxNorm: 844425 1 Unit Dose PO QD 07/14/2010 08/06/2010 Inactive Levaquin 500 mg Tab RxNorm: 552078 1 Tablet(s) PO QD 07/14/201007/27 Inactive Premarin 0.9 mg Tab RxNorm: 485602 1 Tablet(s) PO QD 07/14/201008/06 Inactive ProAir HFA 90 mcg/Actuation Aerosol Inhaler RxNorm: 541512 2 Puff(s) INH Q4H prn shortness of breath 07/14/2010 No Stop Date Active Prevacid 30 mg Cap RxNorm: 847093 1 Capsule(s) PO QD 07/14/201008/06 Inactive Zofran 4 mg Tab RxNorm: 900348 1 Tablet(s) PO Q4H prn nausea 2009 No Stop Date Active Symbicort 160 mcg-4.5 mcg/Actuation Inhalation HFA Aer osol Inhaler RxNorm: 6158392 2 Puff(s) INH BID 07/14/2010 08/06/2010 Inactive Loratadine 10 mg Tab RxNorm: 3265716 1 Tablet(s) PO QD 07/14/2010 Inactive Gabapentin 800 mg Tab RxNorm: 875851 1 Tablet(s) PO QD 07/14/2010 Inactive Metformin ER 500 mg 24 hr Tab RxNorm: 363792 1 Tablet(s) PO 010 07/13/2010 Inactive Diazepam 10 mg Tab RxNorm: 053543 1 Tablet(s) PO BID and PRN 200909/06/2010 Inactive Premarin 0.9 mg Tab RxNorm: 675352 1 Tablet(s) PO QD 06/09/201007/13 Inactive Zofran 4 mg Tab RxNorm: 266760 1 Tablet(s) PO Q4H prn nausea 2009 No Stop Date Active ProAir HFA 90 mcg/Actuation Aerosol Inhaler RxNorm: 094419 2 Puff(s) INH Q4H prn shortness of breath 06/09/2010 No Stop Date Active Gabapentin 800 mg Tab RxNorm: 881899 1 Tablet(s) PO QD 06/09/2010 Inactive Loratadine 10 mg Tab RxNorm: 7912570 1 Tablet(s) PO QD 06/09/2010 Inactive Lactulose 10 gram/15 mL Oral Soln RxNorm: 790128 1 Unit Dose PO QD 06/09/2010 07/13/2010 Inactive Prevacid 30 mg Cap RxNorm: 342371 1 Capsule(s) PO QD 06/09/201007/13 Inactive Synthroid 112 mcg Tab RxNorm: 946130 1 Tablet(s) PO QD 06/09/2010 Inactive Symbicort 160 mcg-4.5 mcg/Actuation Inhalation HFA Aer osol Inhaler RxNorm: 0530751 2 Puff(s) INH BID 06/09/2010 07/13/2010 Inactive Omnicef 300 mg Cap RxNorm: 220487 2 Capsule(s) PO QD 05/07/201005/20 Inactive Metformin 500 mg Tab RxNorm: 109979 1 Tablet(s) PO QD 05/06/201005/22 Inactive ProAir HFA 90 mcg/Actuation Aerosol Inhaler RxNorm: 239648 2 Puff(s) INH Q4H prn shortness of breath 05/06/2010 No Stop Date Active lactulose 10 gram/15 mL Oral Soln RxNorm: 804225 1 Unit Dose PO QD 05/06/2010 06/10/2011 Inactive Loratadine 10 mg Tab RxNorm: 7086675 1 Tablet(s) PO QD 05/06/2010 Inactive Synthroid 112 mcg Tab RxNorm: 543271 1 Tablet(s) PO QD 05/06/2010 Inactive Symbicort 160 mcg-4.5 mcg/Actuation Inhalation HFA Aer osol Inhaler RxNorm: 5586712 2 Puff(s) INH BID 05/06/2010 06/08/2010 Inactive Gabapentin 800 mg Tab RxNorm: 743390 1 Tablet(s) PO QD 05/06/2010 Inactive 16.2 mg-0.1037 mg-0.0194 mg Tab RxNorm: 3785052 2 Tablet(s) PO TID PRN for gas and cramping 05/06/2010 05/12/2010 Inactive Zofran 4 mg Tab RxNorm: 984892 1 Tablet(s) PO Q4H prn nausea 200904/13/2010 Inactive MS Contin 60 mg Tab RxNorm: 549277 3 Tablet(s) PO BID 04/09/201004/22 Inactive Soma 350 mg Tab RxNorm: 455025 2 Tablet(s) PO TID 04/09/2010 05/08/20 10 Inactive Symbicort 160 mcg-4.5 mcg/Actuation Inhalation HFA Aer osol Inhaler RxNorm: 7035142 2 Puff(s) INH BID 04/08/2010 05/05/2010 Inactive Doxycycline 100 mg Cap RxNorm: 3231326 1 Capsule(s) PO BID 04/08/20 10 04/17/2010 Inactive Triamterene-Hydrochlorothiazide 37.5 mg-25 mg Cap RxNorm: 19 8316 1 Capsule(s) PO QAM 04/08/2010 09/04/2010 Inactive fluoxetine 40 mg Cap RxNorm: 825115 1 Capsule(s) PO QAM 04/08/2010 Inactive Morphine SR 120 mg multiphase 24 hr Cap RxNorm: 148733 1 Capsul e(s) PO 03/11/2010 04/07/2010 Inactive Endocet 10 mg-325 mg Tab RxNorm: 4814220 1-2 Tablet(s) PO Q4H SC N PAIN 03/11/2010 04/09/2010 Inactive Savella 100 mg Tab RxNorm: 676618 1 Tablet(s) PO BID 03/10/201004/09 Inactive Soma 350 mg Tab RxNorm: 752120 1 Tablet(s) PO TID prn spasm 010 04/09/2010 Inactive Savella 100 mg Tab RxNorm: 583814 1 Tablet(s) PO BID 02/03/201004/09 Inactive Aspirin 81 mg Tab RxNorm: 814526 1 Tablet(s) PO QD No Start Date Active Zyrtec 10 mg Tab RxNorm: 4777880 1 Tablet(s) PO QD No Start Date Active One Touch Ultra Test Strips RxNorm: Misc test at least t wice daily. No Start Date Active coenzyme Q10 200 mg capsule RxNorm: 948098 1 Capsule(s) PO QD No Star t Date Active One Touch Ultra Test Strips RxNorm: InVt BID Zainab t blood sugar at least twice daily. No Start Date 11/10/2010 Inactive Gabapentin 800 mg Tab RxNorm: 227043 1 Tablet(s) PO QD No Start Date 05/05/2010 Inactive Abilify 5 mg tablet RxNorm: 924382 1 Tablet(s) PO QD No Start Date Inactive Chantix 1 mg Tab RxNorm: 127573 1 Tablet(s) PO BID No Start Date 10/22 Inactive Ozempic 0.25 mg or 0.5 mg (2 mg/1.5 mL) subcutaneous p en injector RxNorm: 9701130 .25 Milligram(s) SQ QW No Start Date 07/04/2019 Inactive lancets 28 gauge RxNorm: Miscellaneous As needed for blo od glucose sticks No Start Date 08/23/2013 Inactive potassium chloride ER 20 mEq tablet,extended release RxNorm: 667074 2 Tablet(s) PO QD No Start Date 09/26/2018 Inactive Ventolin HFA 90 mcg/actuation Aerosol Inhaler RxNorm: 036606 2 Puff(s) INH Q4H prn No Start Date 01/17/2012 Inactive potassium chloride ER 20 mEq tablet,extended release RxNorm: 635918 2 Tablet(s) PO QD No Start Date 10/19/2018 Inactive Januvia 100 mg tablet RxNorm: 284298 1 Tablet(s) PO QD No Start Date 09/10/2015 Inactive Medrol (Aníbal) 4 mg Tabs in a Dose Pack RxNorm: 153873 Tablet(s) PO N o Start Date 08/09/2011 Inactive as directed Zithromax Z-Aníbal 250 mg Tab RxNorm: 735366 Tablet(s) PO No Start Date 01/25/2012 Inactive as directed vitamin B6-vitamin E-magnesium tablet RxNorm: 1 Tablet(s ) PO QHS with INH No Start Date 03/30/2018 Inactive prednisone 20 mg Tab RxNorm: 080343 1 Tablet(s) PO TID for 1wk then 1 po BID for 1wk No Start Date 01/25/2012 Inactive furosemide 40 mg tablet RxNorm: 936932 1 Tablet(s) PO QAM No Start Date 10/09/2018 Inactive Vitamin D3 1000 units Capsule RxNorm: 1 Capsule(s) PO TID No S tart Date 03/19/2015 Inactive Zofran 4 mg Tab RxNorm: 013136 1 Tablet(s) PO Q4H prn nausea No Sta rt Date 04/13/2010 Inactive Premarin 0.625 mg/g Vaginal Cream RxNorm: 659022 1 Gram (s) VAG QHS 3 times a week No Start Date 09/22/2017 Inactive oxycodone 10 mg tablet RxNorm: 9503887 1-2 Tablet(s) PO QID as n eeded for pain No Start Date 11/04/2015 Inactive Nicoderm CQ 21 mg/24 hr daily Patch RxNorm: 048066 1 Applicatio n TD QD No Start Date 08/05/2015 Inactive Topamax 50 mg tablet RxNorm: 709023 1/2 Tablet(s) PO QH S for 1wk then 1 po q HS for 1wk then 2 po q HS No Start Date 06/27/2012 Inactive Chantix Starting Month Aníbal 0.5 mg (11)-1 mg (3x14) Tab s in a Dose Pack RxNorm: 309641 Tablet(s) PO as directed No Start Date 03/01/2011 Inactive Trulicity 0.75 mg/0.5 mL subcutaneous pen injector RxNorm: 1 394293 Milliliter(s) SQ No Start Date 07/04/2019 Inactive Medrol (Aníbal) 4 mg Tabs in a Dose Pack RxNorm: 794365 Tablet(s) PO N o Start Date 01/25/2012 Inactive as directed Duragesic 100 mcg/hr Transderm Patch RxNorm: 669378 2 A pplication TD Q48H for pain No Start Date 09/05/2013 Inactive Premarin 0.9 mg Tab RxNorm: 617838 1 Tablet(s) PO QD No Start Date Inactive Zithromax Z-Aníbal 250 mg Tab RxNorm: 586744 Tablet(s) PO as direc chinmay No Start Date 01/25/2012 Inactive ondansetron 8 mg disintegrating tablet RxNorm: 611093 1 Tablet(s) PO Q6H as needed No Start Date 10/10/2018 Inactive oxycodone 15 mg tablet RxNorm: 8264661 1 Tablet(s) PO QID as nee ded for pain No Start Date 03/05/2019 Inactive ProAir HFA 90 mcg/Actuation Aerosol Inhaler RxNorm: 786976 2 Puff(s) INH Q4H prn for wheezing or shortness of breath No Start Date 12/21/2011 Inactive pravastatin 40 mg tablet RxNorm: 913237 1/2 Tablet(s) PO QOD No Sta rt Date 04/09/2015 Inactive ipratropium-albuterol 0.5 mg-3 mg(2.5 mg base)/3 mL ne bulization soln RxNorm: 2434153 1 Unit Dose INH Q4H as needed No Start Date 09/09/2016 Inactive furosemide 40 mg tablet RxNorm: 334183 1 Tablet(s) PO QAM as ne eded No Start Date 09/24/2019 Inactive Vitamin D2 oral RxNorm: 4018 oral No Start Date 03/18/2015 Inacti ve pravastatin 40 mg tablet RxNorm: 823515 1/2 Tablet(s) PO QD No Star t Date 04/09/2015 Inactive ondansetron HCl 4 mg tablet RxNorm: 169401 1 Tablet(s) PO Q4H as needed for nausea and vomiting No Start Date 04/07/2016 Inactive furosemide 40 mg tablet RxNorm: 032287 2 Tablet(s) PO QAM No Start Date 09/26/2018 Inactive gabapentin 800 mg tablet RxNorm: 850740 1/2 Tablet(s) PO BID No Sta rt Date 06/21/2017 Inactive gabapentin 800 mg tablet RxNorm: 051879 1/2 Tablet(s) PO BID No Sta rt Date 07/05/2017 Inactive ProAir HFA 90 mcg/Actuation Aerosol Inhaler RxNorm: 658815 2 Puff(s) INH Q4H prn shortness of breath No Start Date 05/05/2010 Inactive scopolamine 1 mg over 3 days transdermal patch RxNorm: 46777 2 1 Application TD behind ear. Take off after three days No Start Date 10/10/2018 Inactive Metformin 500 mg Tab RxNorm: 391813 1 Tablet(s) PO QD No Start Date 0 05/05/2010 Inactive MS Contin 200 mg Tab RxNorm: 846546 1 Tablet(s) PO BID No Start Date 08/20/2011 Inactive Belladonna-Phenobarbital 48 mg tablet,extended release RxNor m: 2 Tablet(s) PO TID No Start Date 06/04/2016 Inactive Synthroid 112 mcg Tab RxNorm: 557499 1 Tablet(s) PO QD No Start Date 05/05/2010 Inactive Zegerid 40 mg-1.1 gram Cap RxNorm: 752692 1 Capsule(s) PO QD No Sta rt Date 01/25/2012 Inactive Premarin 0.625 mg/g Vaginal Cream RxNorm: 680194 VAG In sert 1gm vaginally at bedtime 3 times weekly No Start Date 01/17/2011 Inactive potassium chloride ER 20 mEq tablet,extended release RxNorm: 732955 1 Tablet(s) PO QD No Start Date 04/24/2019 Inactive methocarbamol 750 mg tablet RxNorm: 638717 2 Tablet(s) PO TID as needed for muscle spasm No Start Date 07/08/2014 Inactive Biaxin XL Aníbal 500 mg 24 hr Tab RxNorm: 874499 Tablet(s) PO as d irected No Start Date 04/24/2013 Inactive Vitamin D3 1,000 unit tablet RxNorm: 298652 3 Tablet(s) PO QD No St art Date 06/01/2017 Inactive Morphine SR 120 mg multiphase 24 hr Cap RxNorm: 481265 1 Capsul e(s) PO BID No Start Date 04/09/2010 Inactive Silvadene 1 % topical cream RxNorm: 709659 1 Application TOP BI D to burn area No Start Date 01/31/2017 Inactive Prednisone 20 mg Tab RxNorm: 608743 1 Tablet(s) PO TID for 3days then BID for 4days No Start Date 01/25/2012 Inactive gabapentin 600 mg tablet RxNorm: 824277 1 Tablet(s) PO BID No Start Date 01/21/2015 Inactive topiramate 50 mg tablet RxNorm: 549614 1 Tablet(s) PO QHS No Start Date 03/30/2018 Inactive Januvia 100 mg tablet RxNorm: 044299 1/2 Tablet(s) PO QD No Start D ate 12/25/2015 Inactive Diazepam 10 mg Tab RxNorm: 896783 1 Tablet(s) PO BID and PRN No Sta rt Date 06/08/2010 Inactive Medication Administered No Medication Administered data Immunizations Vaccine Codes Date Status Influenza CVX: 141 09/28/2012 Pneumovax Unknown 09/28/2012 Influenza (Adult) CVX: 141 09/02/2010 Results No Results data Procedures Procedure Codes Date THER/PROPH/DIAG INJ SC/IM CPT-4: 68516 07/10/2019 METHYLPREDNISOLONE INJECTION CPT-4: J2930 07/10/2019 URINALYSIS NONAUTO W/O SCOPE CPT-4: 39429 09/06/2018 URINE CULTURE/ COLONY COUNT CPT-4: 82144 09/06/2018 DRAIN/INJECT JOINT/BURSA CPT-4: 77194 04/29/2017 TRIAMCINOLONE ACET INJ NOS CPT-4: J3301 04/29/2017 DEXAMETHASONE SODIUM PHOS CPT-4: J1100 04/29/2017 INFLUENZA ASSAY W/OPTIC CPT-4: 77183 12/01/2016 RESPIRATORY CULTURE & STAIN CPT-4: 81598 07/09/2016 TB INTRADERMAL TEST CPT-4: 95254 04/21/2016 DRAIN/INJECT JOINT/BURSA CPT-4: 37678 11/07/2013 METHYLPREDNISOLONE 40 MG INJ CPT-4: J1030 11/07/2013 TRIAMCINOLONE ACET INJ NOS CPT-4: J3301 11/07/2013 DRAIN/INJECT JOINT/BURSA CPT-4: 16836 08/08/2013 METHYLPREDNISOLONE 40 MG INJ CPT-4: J1030 08/08/2013 TRIAMCINOLONE ACET INJ NOS CPT-4: J3301 08/08/2013 FLU VACCINE 3 YRS & > IM UP 64 CPT-4: 15857 2 PNEUMOCOCCAL VACC 23 ADITYA IM CPT-4: 58884 09/28/2012 IMMUNIZATION ADMIN CPT-4: 09429 09/28/2012 IMMUNIZATION ADMIN EACH ADD CPT-4: 26082 09/28/2012 FLU VACCINE 3 YRS & > IM UP 64 CPT-4: 68321 0 IMMUNIZATION ADMIN CPT-4: 35835 09/02/2010 METHYLPREDNISOLONE INJECTION CPT-4: J2930 05/07/2010 THER/PROPH/DIAG INJ SC/IM CPT-4: 23841 05/07/2010 Vital Signs Date Vital 11/29/2019 Blood [...] 1: 122/78 Code: 8480-6 BMI: 29.5 Code: 61519-0 Heart Rate 1: 76 bpm Height: 5'4" Respiratory Rate: 20 bpm SpO2: 96% Tempera ture: 37.0 (C) / 98.6 (F) Weight: 172 lbs 01/25/2019 Blood Pressure 1: 132/80 Code: 8480-6 BMI: 29.7 Code: 24489-7 Heart Rate 1: 84 bpm Height: 5'4" Respiratory Rate: 22 bpm SpO2: 98% Tempera ture: 36.9 (C) / 98.4 (F) Weight: 173 lbs 01/03/2019 Blood Pressure 1: 116/70 Code: 8480-6 BMI: 29.5 Code: 24189-9 Heart Rate 1: 92 bpm Height: 5'4" Respiratory Rate: 24 bpm SpO2: 98% Tempera ture: 37.2 (C) / 98.9 (F) Weight: 172 lbs 11/21/2018 Blood Pressure 1: 146/82 Code: 8480-6 BMI: 28.2 Code: 78837-3 Heart Rate 1: 88 bpm Height: 5'4" Respiratory Rate: 22 bpm SpO2: 97% Tempera ture: 36.9 (C) / 98.4 (F) Weight: 164 lbs 10/27/2018 Blood Pressure 1: 122/70 Code: 8480-6 BMI: 27.6 Code: 98717-8 Heart Rate 1: 88 bpm Height: 5'4" Respiratory Rate: 20 bpm SpO2: 96% Tempera ture: 36.8 (C) / 98.3 (F) Weight: 161 lbs 10/18/2018 Blood Pressure 1: 126/70 Code: 8480-6 BMI: 28.3 Code: 04311-9 Heart Rate 1: 76 bpm Height: 5'4" Respiratory Rate: 20 bpm SpO2: 95% Tempera ture: 37.0 (C) / 98.6 (F) Weight: 165 lbs 09/27/2018 Blood Pressure 1: 124/78 Code: 8480-6 BMI: 27.1 Code: 31698-3 Heart Rate 1: 88 bpm Height: 5'4" Respiratory Rate: 20 bpm SpO2: 98% Tempera ture: 36.4 (C) / 97.6 (F) Weight: 158 lbs 09/14/2018 Blood Pressure 1: 140/72 Code: 8480-6 BMI: 26.1 Code: 18908-4 Heart Rate 1: 100 bpm Height: 5'4" Respiratory Rate: 20 bpm SpO2: 97% Tempera ture: 36.9 (C) / 98.4 (F) Weight: 152 lbs 09/06/2018 Blood Pressure 1: 156/82 Code: 8480-6 BMI: 26.3 Code: 57424-4 Heart Rate 1: 100 bpm Height: 5'4" Respiratory Rate: 28 bpm SpO2: 95% Tempera ture: 37.2 (C) / 98.9 (F) Weight: 153 lbs 08/16/2018 Blood Pressure 1: 130/78 Code: 8480-6 Heart Rate 1: 87 bpm Respiratory Rate: 24 bpm SpO2: 94% Temperature: 36.9 (C) / 98.4 (F) We ight: 147 lbs 8 oz 07/07/2018 Blood Pressure 1: 116/78 Code: 8480-6 BMI: 22.7 Code: 99503-5 Heart Rate 1: 88 bpm Height: 5'4" Respiratory Rate: 22 bpm SpO2: 98% Tempera ture: 36.5 (C) / 97.7 (F) Weight: 132 lbs 05/31/2018 Blood Pressure 1: 128/78 Code: 8480-6 BMI: 22.3 Code: 34322-3 Heart Rate 1: 92 bpm Height: 5'4" Respiratory Rate: 26 bpm SpO2: 94% Tempera ture: 36.7 (C) / 98.1 (F) Weight: 130 lbs 03/31/2018 Blood Pressure 1: 136/78 Code: 8480-6 BMI: 21.5 Code: 06809-8 Heart Rate 1: 76 bpm Height: 5'4" Respiratory Rate: 24 bpm SpO2: 95% Tempera ture: 36.8 (C) / 98.3 (F) Weight: 125 lbs 01/26/2018 Blood Pressure 1: 142/64 Code: 8480-6 BMI: 20.6 Code: 47349-5 Heart Rate 1: 90 bpm Height: 5'4" Respiratory Rate: 24 bpm SpO2: 92% Tempera ture: 36.3 (C) / 97.3 (F) Weight: 120 lbs 10/26/2017 Blood Pressure 1: 124/70 Code: 8480-6 BMI: 20.3 Code: 95748-1 Heart Rate 1: 76 bpm Height: 5'4" Respiratory Rate: 22 bpm SpO2: 94% Tempera ture: 36.7 (C) / 98.1 (F) Weight: 118 lbs 09/23/2017 Blood Pressure 1: 106/70 Code: 8480-6 BMI: 19.2 Code: 76260-1 Heart Rate 1: 76 bpm Height: 5'4" Respiratory Rate: 20 bpm SpO2: 94% Tempera ture: 36.8 (C) / 98.3 (F) Weight: 112 lbs 08/12/2017 Blood Pressure 1: 116/68 Code: 8480-6 BMI: 20.1 Code: 35591-8 Heart Rate 1: 80 bpm Height: 5'4" Respiratory Rate: 22 bpm SpO2: 95% Tempera ture: 36.8 (C) / 98.2 (F) Weight: 117 lbs 07/06/2017 Blood Pressure 1: 136/78 Code: 8480-6 BMI: 20.6 Code: 24124-2 Heart Rate 1: 76 bpm Height: 5'4" Respiratory Rate: 24 bpm SpO2: 96% Tempera ture: 36.8 (C) / 98.2 (F) Weight: 120 lbs 06/02/2017 Blood Pressure 1: 112/70 Code: 8480-6 Heart Rate 1: 92 bpm Height: 5'4" Respiratory Rate: 24 bpm SpO2: 95% Temperature: 37.0 (C) / 98.6 (F) Weight: 04/29/2017 Blood Pressure 1: 94/52 Code: 8480-6 BMI: 19.6 C ode: 79717-9 Heart Rate 1: 84 bpm Height: 5'4" [...] 92/58 Code: 8480-6 BMI: 19.2 C ode: 72099-4 Heart Rate 1: 84 bpm Height: 5'4" Respiratory Rate: 26 bpm SpO2: 95% Tempera ture: 36.7 (C) / 98.0 (F) Weight: 112 lbs 12/01/2016 Blood Pressure 1: 114/70 Code: 8480-6 BMI: 19.2 Code: 10678-4 Heart Rate 1: 96 bpm Height: 5'4" Respiratory Rate: 28 bpm SpO2: 93% Tempera ture: 38.3 (C) / 101.0 (F) Weight: 112 lbs 10/27/2016 Blood Pressure 1: 126/66 Code: 8480-6 BMI: 19.6 Code: 09881-6 Heart Rate 1: 92 bpm Height: 5'4" Respiratory Rate: 28 bpm SpO2: 90% Tempera ture: 36.8 (C) / 98.3 (F) Weight: 114 lbs 09/09/2016 Blood Pressure 1: 126/74 Code: 8480-6 Heart Rate 1: 104 bpm Height: 5'4" Respiratory Rate: 32 bpm SpO2: 88% Temperature: 37 .2 (C) / 99.0 (F) 08/26/2016 Blood Pressure 1: 134/82 Code: 8480-6 BMI: 22.0 Code: 95225-6 Heart Rate 1: 84 bpm Height: 5'4" Respiratory Rate: 24 bpm SpO2: 94% Tempera ture: 36.8 (C) / 98.3 (F) Weight: 128 lbs 05/21/2016 Blood Pressure 1: 142/80 Code: 8480-6 BMI: 21.6 Code: 27266-6 Heart Rate 1: 104 bpm Height: 5'4" Respiratory Rate: 22 bpm SpO2: 93% Tempera ture: 36.0 (C) / 96.8 (F) Weight: 126 lbs 03/25/2016 Blood Pressure 1: 126/62 Code: 8480-6 Heart Rate 1: 88 bpm Respiratory Rate: 20 bpm SpO2: 92% Temperature: 36.8 (C) / 98.3 (F) We ight: 130 lbs 01/23/2016 Blood Pressure 1: 146/82 Code: 8480-6 BMI: 24.1 Code: 39594-0 Heart Rate 1: 92 bpm Height: 5'3" Respiratory Rate: 22 bpm Temperature: 37 .1 (C) / 98.8 (F) Weight: 136 lbs 12/26/2015 Blood Pressure 1: 142/78 Code: 8480-6 BMI: 24.6 Code: 16628-0 Heart Rate 1: 78 bpm Height: 5'3" Respiratory Rate: 20 bpm Temperature: 36 .7 (C) / 98.1 (F) Weight: 139 lbs 12/03/2015 Blood Pressure 1: 126/60 Code: 8480-6 BMI: 24.6 Code: 89067-9 Heart Rate 1: 100 bpm Height: 5'3" Respiratory Rate: 28 bpm Temperature: 37 .6 (C) / 99.6 (F) Weight: 139 lbs 09/10/2015 Blood Pressure 1: 124/64 Code: 8480-6 BMI: 23.7 Code: 78100-8 Heart Rate 1: 88 bpm Height: 5'3" Respiratory Rate: 24 bpm SpO2: 95% Tempera ture: 36.4 (C) / 97.6 (F) Weight: 134 lbs 08/06/2015 Blood Pressure 1: 114/76 Code: 8480-6 BMI: 23.2 Code: 57700-6 Heart Rate 1: 88 bpm Height: 5'3" Respiratory Rate: 22 bpm Temperature: 36 .6 (C) / 97.9 (F) Weight: 131 lbs 07/18/2015 Blood Pressure 1: 144/78 Code: 8480-6 BMI: 23.7 Code: 71491-9 Heart Rate 1: 84 bpm Height: 5'3" Respiratory Rate: 20 bpm Temperature: 37 .2 (C) / 99.0 (F) Weight: 134 lbs 04/10/2015 Blood Pressure 1: 110/64 Code: 8480-6 Heart Rate 1: 80 bpm Height: Respiratory Rate: 20 bpm Temperature: 37.1 (C) / 98.8 (F) Weight: 03/05/2015 Blood Pressure 1: 136/80 Code: 8480-6 BMI: 23.9 Code: 92876-9 Heart Rate 1: 76 bpm Height: 5'3" Respiratory Rate: 24 bpm Temperature: 37 .0 (C) / 98.6 (F) Weight: 135 lbs 01/30/2015 Blood Pressure 1: 142/80 Code: 8480-6 BMI: 23.0 Code: 10201-7 Heart Rate 1: 96 bpm Height: 5'3" Respiratory Rate: 22 bpm Temperature: 36 .2 (C) / 97.2 (F) Weight: 130 lbs 01/02/2015 Blood Pressure 1: 124/70 Code: 8480-6 BMI: 23.4 Code: 63085-3 Heart Rate 1: 84 bpm Height: 5'3" Respiratory Rate: 24 bpm SpO2: 95% Tempera ture: 36.9 (C) / 98.5 (F) Weight: 132 lbs 10/03/2014 Blood Pressure 1: 106/68 Code: 8480-6 BMI: 22.5 Code: 08951-4 Heart Rate 1: 88 bpm Height: 5'3" Respiratory Rate: 24 bpm Temperature: 37 .0 (C) / 98.6 (F) Weight: 127 lbs 08/27/2014 Blood Pressure 1: 124/68 Code: 8480-6 BMI: 21.1 Code: 70231-8 Heart Rate 1: 88 bpm Height: 5'3" [...] 1: 120/70 Code: 8480-6 BMI: 19.2 Code: 44627-5 Heart Rate 1: 70 bpm Height: 5'4" Respiratory Rate: 20 bpm Temperature: 36 .9 (C) / 98.4 (F) Weight: 112 lbs 06/28/2013 Blood Pressure 1: 102/68 Code: 8480-6 BMI: 19.6 Code: 23917-2 Heart Rate 1: 76 bpm Height: 5'4" Respiratory Rate: 20 bpm Temperature: 36 .8 (C) / 98.2 (F) Weight: 114 lbs 05/31/2013 Blood Pressure 1: 106/70 Code: 8480-6 BMI: 18.9 Code: 79878-0 Heart Rate 1: 100 bpm Height: 5'4" Respiratory Rate: 20 bpm Temperature: 36 .4 (C) / 97.6 (F) Weight: 110 lbs 05/03/2013 Blood Pressure 1: 126/70 Code: 8480-6 BMI: 19.1 Code: 26729-0 Heart Rate 1: 88 bpm Height: 5'4" Respiratory Rate: 20 bpm Temperature: 37 .1 (C) / 98.8 (F) Weight: 111 lbs 04/25/2013 Blood Pressure 1: 114/68 Code: 8480-6 BMI: 19.4 Code: 93340-4 Heart Rate 1: 92 bpm Height: 5'4" Respiratory Rate: 24 bpm SpO2: 96% Tempera ture: 37.7 (C) / 99.8 (F) Weight: 113 lbs 03/08/2013 Blood Pressure 1: 94/68 Code: 8480-6 BMI: 21.3 C ode: 27612-3 Heart Rate 1: 88 bpm Height: 5'4" Respiratory Rate: 24 bpm Temperature: 37 .0 (C) / 98.6 (F) Weight: 124 lbs 02/07/2013 Blood Pressure 1: 106/64 Code: 8480-6 BMI: 21.8 Code: 88604-1 Heart Rate 1: 84 bpm Height: 5'4" Respiratory Rate: 22 bpm Temperature: 36 .8 (C) / 98.2 (F) Weight: 127 lbs 01/10/2013 Blood Pressure 1: 122/68 Code: 8480-6 BMI: 21.6 Code: 53400-6 Heart Rate 1: 94 bpm Height: 5'4" SpO2: 94% Temperature: 36.7 (C) / 98.1 (F) Weight: 126 lbs 09/28/2012 Blood Pressure 1: 124/78 Code: 8480-6 BMI: 24.9 Code: 21544-2 Heart Rate 1: 92 bpm Height: 5'4" Respiratory Rate: 20 bpm Temperature: 36 .7 (C) / 98.1 (F) Weight: 145 lbs 06/28/2012 Blood Pressure 1: 134/80 Code: 8480-6 BMI: 24.9 Code: 32255-3 Heart Rate 1: 76 bpm Height: 5'4" Respiratory Rate: 20 bpm Temperature: 36 .8 (C) / 98.2 (F) Weight: 145 lbs 05/03/2012 Blood Pressure 1: 108/62 Code: 8480-6 BMI: 25.6 Code: 81206-8 Heart Rate 1: 88 bpm Height: 5'4" Temperature: 36.2 (C) / 97.2 (F) Weight: 149 lbs 03/01/2012 Blood Pressure 1: 124/66 Code: 8480-6 BMI: 25.1 Code: 35363-4 Heart Rate 1: 76 bpm Height: 5'4" Respiratory Rate: 20 bpm Temperature: 36 .6 (C) / 97.9 (F) Weight: 146 lbs 01/26/2012 Blood Pressure 1: 118/82 Code: 8480-6 BMI: 25.1 Code: 45766-9 Heart Rate 1: 74 bpm Height: 5'4" Temperature: 36.8 (C) / 98.2 (F) Weight: 146 lbs 11/03/2011 Blood Pressure 1: 126/80 Code: 8480-6 BMI: 27.3 Code: 51115-9 Heart Rate 1: 72 bpm Height: 5'4" [...] Monitoring 02/13/2020 follow up 11/29/2019 Discuss pneumonia [facility] follow up 10/30/2019 follow up 10/25/2019 [...] prozac Encounters Encounter Performer Location Codes Date ([id number]) OFFICE/OUTPATIENT VISIT EST Diagnosis: Urticaria[ICD10: L50.9] Diagnosis: Allergy to morphine[ICD10: Z88.5] Diagnosis: Chronic pain syndrome[ICD10: G89.4] Vika RENTERIA [employer] CPT-4: 14450 02/13/2020 ([id number]) OFFICE/OUTPATIENT VISIT EST Diagnosis: Chronic pain syndrome[ICD10: G89.4] Diagnosis: Localized edema[ICD10: R60.0] Diagnosis: Chronic obstructive pulmonary disease, unspecified[ICD10: J44.9] Diagnosis: Other fatigue[ICD10: R53.83] Diagnosis: Muscle weakness (generalized)[ICD10: M62.81] Diagnosis: Spinal stenosis, lumbar region with neurogenic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 Referral Completed Referral: Jaylan Matute WPtel: [address] [facility] [address] [id number] [place] Referral Initiated Referral: Kyle Billings WPtel: [phone] [place] [address] [place] Referral Appointment Requested Instructions Comment . [...] prn breakthrough pain . Discussed that some [employer] produc ts are petroleum free If [...]
--- OUTSIDE RECORDS SUMMARY | 2020-04-24 22:50 | XMS REPORT | CCD ---
Author Author Yana Renteria D.O. Organization [facility] Address [address] [place] [address] Phone Care Team Providers Care Teller Name Role Phone Vika Renteria D.O., PP Unavailable CCM Unavailable Summary Purpose Interface Exchange Insurance Providers Payer name Policy type / Coverage type Covered green party ID Effective Begin Date Effective End Date [employer] [facility] Medicaid [id number] U nknown Family History Family History data not found Social History Social History Element Codes Description Effective Dates Marital status Unknown 06/28/[address]: 55568093 Currently smokes tobacco 05/2013 Allergies, Adverse Reactions, [...] Fill Instructions prednisone 20 mg tablet RxNorm: 582360 1 Tablet(s) Oral two yumi es a day 02/13/2020 02/20/2020 Active oxycodone 30 mg tablet RxNorm: 7112347 1 Tablet(s) Oral four times a day replaces MS Contin 02/13/2020 03/14/2020 Active levothyroxine 25 mcg tablet RxNorm: 196386 TAKE ONE TAB LET BY MOUTH EVERY MORNING 02/09/2020 No Stop Date Active MS Contin 200 mg tablet,extended release RxNorm: 895687 1 Tablet(s) Oral two times a day 02/01/2020 03/01/2020 Active cyclobenzaprine 10 mg tablet RxNorm: 852347 TAKE ONE TA BLET BY MOUTH THREE TIMES A DAY NEEDED 01/31/2020 No Stop Date Active Premarin 0.45 mg tablet RxNorm: 582997 TAKE ONE TABLET BY MOUTH DAILY 01/31/2020 No Stop Date Active metformin 500 mg tablet RxNorm: 566198 1 Tablet(s) Oral QD 01/31/20 20 04/29/2020 Active gabapentin 300 mg capsule RxNorm: 474475 TAKE ONE CAPSULE BY [facility] TWICE A DAY 01/16/2020 No Stop Date Active potassium chloride ER 20 mEq tablet,extended release RxNorm: 417677 TAKE ONE TABLET BY MOUTH DAILY 01/08/2020 07/05/2020 Active ProAir HFA 90 mcg/actuation aerosol inhaler RxNorm: 457729 INHALE ONE PUFF BY MOUTH EVERY 4 HOURS FOR WHEEZING OR FOR SHORTNESS OF BREATH 01/04/2020 No Stop Date Active metformin 500 mg tablet RxNorm: 692024 1 Tablet(s) Oral QD 01/04/20 20 01/30/2020 Inactive MS Contin 200 mg tablet,extended release RxNorm: 475139 1 Tablet(s) Oral two times a day 01/02/2020 01/31/2020 Inactive Pulmicort 1 mg/2 mL suspension for nebulization RxNorm: 6168 19 USE ONE VIAL VIA NEBULIZER BY MOUTH TWICE A DAY 12/21/2019 No Stop Date Active furosemide 40 mg tablet RxNorm: 499153 TAKE ONE TABLET BY MOUTH EVERY MORNING NEEDED 12/20/2019 No Stop Date Active levothyroxine 25 mcg tablet RxNorm: 992543 TAKE ONE TAB LET BY MOUTH EVERY MORNING 12/20/2019 02/08/2020 Inactive MS Contin 200 mg tablet,extended release RxNorm: 215103 1 Tablet(s) Oral two times a day 12/05/2019 01/01/2020 Inactive Medrol (Aníbal) 4 mg tablets in a dose pack RxNorm: 563301 6 Tablet(s) Oral QD --then as directed 11/30/2019 12/05/2019 Inactive MS Contin 200 mg tablet,extended release RxNorm: 319534 1 Tablet(s) Oral two times a day 11/29/2019 12/04/2019 Inactive cyclobenzaprine 10 mg tablet RxNorm: 628334 TAKE ONE TA BLET BY MOUTH THREE TIMES A DAY NEEDED 11/21/2019 01/30/2020 Inactive MS Contin 200 mg tablet,extended release RxNorm: 475307 1 Tablet(s) Oral two times a day replaces 100mg dose 11/03/2019 11/02/2019 Inactive MS Contin 200 mg tablet,extended release RxNorm: 896761 1 Tablet(s) Oral two times a day replaces 100mg dose 11/03/2019 11/29/2019 Inactive ferrous sulfate 325 mg (65 mg iron) tablet RxNorm: 895311 1 Tab let(s) Oral QD 10/30/2019 No Stop Date Active MS Contin 100 mg tablet,extended release RxNorm: 695253 1 Table t(s) Oral QD 10/30/2019 10/29/2019 Inactive MS Contin 100 mg tablet,extended release RxNorm: 284627 1 Table t(s) Oral QD 10/30/2019 11/02/2019 Inactive Relistor 150 mg tablet RxNorm: 3242274 TAKE THREE TABLETS BY BENOIT TH DAILY 10/25/2019 No Stop Date Active pantoprazole 40 mg tablet,delayed release RxNorm: 676894 1 Tabl et(s) Oral QD 10/25/2019 No Stop Date Active Minipress 2 mg capsule RxNorm: 012358 1 Capsule(s) Oral QAM and 3 at bedtime 10/25/2019 No Stop Date Active Lancets, Super Thin RxNorm: 1 Unit Dose Miscellaneous QD 9 11/27/2020 Active Cymbalta 60 mg capsule,delayed release RxNorm: 335440 1 Capsule (s) Oral QAM 10/25/2019 No Stop Date Active Cymbalta 30 mg capsule,delayed release RxNorm: 298692 1 Capsule (s) Oral QAM 10/25/2019 No Stop Date Active oxycodone 15 mg tablet RxNorm: 2184987 1 Tablet(s) Oral four times a day as needed for pain 10/25/2019 11/28/2019 Inactive metformin 500 mg tablet RxNorm: 922338 1 Tablet(s) Oral QD 10/25/20 19 01/03/2020 Inactive levothyroxine 25 mcg tablet RxNorm: 598168 1 Tablet(s) Oral QAM 02/201912/19/2019 Inactive levothyroxine 25 mcg tablet RxNorm: 906991 1 Tablet(s) Oral QAM 02/201910/24/2019 Inactive MS Contin 100 mg tablet,extended release RxNorm: 938212 1 Tablet(s) Oral two times a day replaces fentanyl 10/25/2019 10/25/2019 Inactive Premarin 0.45 mg tablet RxNorm: 302631 TAKE ONE TABLET BY MOUTH DAILY 10/24/2019 01/30/2020 Inactive Duragesic 100 mcg/hr transdermal patch RxNorm: 314320 2 Application TD Q48H for pain 10/18/2019 10/24/2019 Inactive gabapentin 300 mg capsule RxNorm: 493625 TAKE ONE CAPSULE BY MO UTH TWICE A DAY 10/16/2019 01/15/2020 Inactive cyclobenzaprine 10 mg tablet RxNorm: 444356 TAKE ONE TA BLET BY MOUTH THREE TIMES A DAY NEEDED 09/27/2019 11/20/2019 Inactive Relistor 150 mg tablet RxNorm: 9144306 TAKE THREE TABLETS BY BENOIT TH DAILY 09/25/2019 10/24/2019 Inactive ProAir HFA 90 mcg/actuation aerosol inhaler RxNorm: 062956 INHALE ONE PUFF BY MOUTH EVERY 4 HOURS FOR WHEEZING OR FOR SHORTNESS OF BREATH 09/25/2019 01/03/2020 Inactive furosemide 40 mg tablet RxNorm: 096799 1 Tablet(s) Oral QAM as needed 09/25/2019 09/25/2019 Inactive oxycodone 15 mg tablet RxNorm: 2049543 1 Tablet(s) PO QID as nee ded for pain 09/21/2019 10/24/2019 Inactive Duragesic 100 mcg/hr transdermal patch RxNorm: 930871 2 Application TD Q48H for pain 09/19/2019 10/17/2019 Inactive Daliresp 500 mcg tablet RxNorm: 7795522 1 Tablet(s) Oral QD 019 03/08/2020 Active Relistor 150 mg tablet RxNorm: 3325209 TAKE THREE TABLETS BY BENOIT TH DAILY 07/25/2019 07/30/2019 Inactive cyclobenzaprine 10 mg tablet RxNorm: 693291 TAKE ONE TA BLET BY MOUTH THREE TIMES A DAY NEEDED 07/25/2019 09/22/2019 Inactive potassium chloride ER 20 mEq tablet,extended release RxNorm: 213777 TAKE ONE TABLET BY MOUTH DAILY 07/25/2019 01/07/2020 Inactive fluoxetine 40 mg capsule RxNorm: 073909 TAKE ONE CAPSULE BY BENOIT TH EVERY MORNING 07/11/2019 10/24/2019 Inactive Medrol (Aníbal) 4 mg tablets in a dose pack RxNorm: 637580 6 Tablet(s) PO QD --then as directed 07/10/2019 07/15/2019 Inactive omeprazole 40 mg capsule,delayed release RxNorm: 039803 1 Capsule(s) PO QD for stomach TAKE ONE CAPSULE BY MOUTH DAILY 07/10/2019 10/24/2019 Inactive Augmentin 875 mg-125 mg tablet RxNorm: 663993 1 Tablet(s) PO BID 07/16/2019 Inactive Trulicity 0.75 mg/0.5 mL subcutaneous pen injector RxNorm: 1 204258 0.75 Milliliter(s) SQ weekly 07/05/2019 10/24/2019 Inactive Compazine 10 mg tablet RxNorm: 829104 TAKE ONE TABLET B Y MOUTH FOUR TIMES A DAY NEEDED FOR NAUSEA 06/20/2019 07/19/2019 Inactive ProAir HFA 90 mcg/actuation aerosol inhaler RxNorm: 641977 INHALE ONE PUFF BY MOUTH EVERY 4 HOURS FOR WHEEZING OR FOR SHORTNESS OF BREATH 06/20/2019 06/23/2019 Inactive Daliresp 500 mcg tablet RxNorm: 4781381 TAKE ONE TABLET BY MOUTH DAILY 06/12/2019 09/10/2019 Inactive mqcadtfc-nwbftsucl-afaimvecy 3.5 mg/mL-10,000 unit/mL- 1 % ear solution RxNorm: 493747 4 Drop(s) otic (ear) TID to left ear 06/05/2019 10/24/2019 Inac tive furosemide 40 mg tablet RxNorm: 684536 TAKE ONE TABLET BY MOUTH EVERY MORNING 05/26/2019 07/09/2019 Inactive Duragesic 100 mcg/hr transdermal patch RxNorm: 755301 2 Application TD Q48H for pain 05/16/2019 06/14/2019 Inactive oxycodone 15 mg tablet RxNorm: 0005361 1 Tablet(s) PO QID as nee ded for pain 05/10/2019 09/20/2019 Inactive doxycycline hyclate 100 mg capsule RxNorm: 0947441 1 Capsule(s) PO BID 05/03/2019 05/12/2019 Inactive prednisone 20 mg tablet RxNorm: 418370 1 Tablet(s) PO T ID for 3 days then 1 po BID for 3 days then one daily for 3 days 05/03/2019 07/11/2019 Inactiv e Ozempic 0.25 mg or 0.5 mg (2 mg/1.5 mL) subcutaneous p en injector RxNorm: 0079630 0.5 Milligram(s) SQ QW 05/03/2019 07/09/2019 Inactive fluconazole 100 mg tablet RxNorm: 471053 1 Tablet(s) PO QD 05/03/2005/07/2019 Inactive Premarin 0.45 mg tablet RxNorm: 796955 TAKE ONE TABLET BY MOUTH DAILY 05/03/2019 10/23/2019 Inactive potassium chloride ER 20 mEq tablet,extended release RxNorm: 816245 1 Tablet(s) PO QD 04/27/2019 07/25/2019 Inactive potassium chloride ER 20 mEq tablet,extended release RxNorm: 584320 1 Tablet(s) PO QD 04/25/2019 04/26/2019 Inactive Compazine 10 mg tablet RxNorm: 169084 1 Tablet(s) PO QID as nee ded for nausea 04/25/2019 05/04/2019 Inactive ProAir HFA 90 mcg/actuation aerosol inhaler RxNorm: 694124 INHALE ONE PUFF BY MOUTH EVERY 4 HOURS FOR WHEEZING OR FOR SHORTNESS OF BREATH 04/12/2019 06/10/2019 Inactive Medrol (Aníbal) 4 mg tablets in a dose pack RxNorm: 430195 6 Tablet(s) PO QD --then as directed 04/11/2019 04/16/2019 Inactive Symbicort 160 mcg-4.5 mcg/actuation HFA aerosol inhaler RxNo rm: 7389092 2 Puff(s) INH BID 04/10/2019 10/06/2019 Inactive levothyroxine 50 mcg tablet RxNorm: 951885 1 Tablet(s) PO QD 201810/24/2019 Inactive gabapentin 300 mg capsule RxNorm: 311537 1 Capsule(s) PO BID 201810/02/2019 Inactive Symbicort 160 mcg-4.5 mcg/actuation HFA aerosol inhaler RxNo rm: 6948742 2 Puff(s) INH BID 04/06/2019 04/09/2019 Inactive oxycodone 15 mg tablet RxNorm: 2232536 1 Tablet(s) PO QID as nee ded for pain 04/05/2019 05/09/2019 Inactive levothyroxine 50 mcg tablet RxNorm: 444209 1 Tablet(s) PO QD 201804/09/2019 Inactive furosemide 40 mg tablet RxNorm: 355235 TAKE ONE TABLET BY MOUTH EVERY MORNING 03/21/2019 04/19/2019 Inactive levothyroxine 50 mcg tablet RxNorm: 894723 TAKE ONE TABLET BY M OUTH DAILY 03/21/2019 03/27/2019 Inactive Duragesic 100 mcg/hr transdermal patch RxNorm: 166848 2 Application TD Q48H for pain 03/13/2019 04/11/2019 Inactive oxycodone 15 mg tablet RxNorm: 3758846 1 Tablet(s) PO QID as nee ded for pain 03/06/2019 04/04/2019 Inactive Relistor 150 mg tablet RxNorm: 7761281 3 Tablet(s) PO QD 02/28/2019 0 05/28/2019 Inactive cyclobenzaprine 10 mg tablet RxNorm: 606868 1 Tablet(s) PO TID as needed 02/28/2019 05/28/2019 Inactive phentermine 37.5 mg tablet RxNorm: 866173 1 Tablet(s) PO QAM 201803/15/2019 Inactive Duragesic 100 mcg/hr transdermal patch RxNorm: 749087 2 Application TD Q48H for pain 02/09/2019 03/10/2019 Inactive Daliresp 500 mcg tablet RxNorm: 7971110 TAKE ONE TABLET BY MOUTH DAILY 01/31/2019 05/30/2019 Inactive Premarin 0.45 mg tablet RxNorm: 852627 1 Tablet(s) PO QD 01/31/2019 0 04/30/2019 Inactive fluoxetine 40 mg capsule RxNorm: 219031 Capsule(s) TAKE ONE CAPSULE BY MOUTH EVERY MORNING 01/31/2019 04/30/2019 Inactive levothyroxine 50 mcg tablet RxNorm: 267479 1 Tablet(s) PO QD 201804/10/2019 Inactive follow up in 3 weeks levothyroxine 50 mcg tablet RxNorm: 709669 1 Tablet(s) PO QD 201801/25/2019 Inactive follow up in 3 weeks potassium chloride ER 20 mEq tablet,extended release RxNorm: 969831 2 Tablet(s) PO BID 01/23/2019 01/08/2020 Inactive Synthroid 50 mcg tablet RxNorm: 171480 TAKE ONE TABLET BY MOUTH DAILY 01/16/2019 10/24/2019 Inactive potassium chloride ER 20 mEq tablet,extended release RxNorm: 166541 2 Tablet(s) PO BID 01/04/2019 01/22/2019 Inactive ProAir HFA 90 mcg/actuation aerosol inhaler RxNorm: 408446 INHALE ONE PUFF BY MOUTH EVERY 4 HOURS FOR WHEEZING OR SHORTNESS OF BREATH 01/04/201902/20 Inactive Request already responded to by other me ans (e.g. phone or fax) ProAir HFA 90 mcg/actuation aerosol inhaler RxNorm: 0827917 INHALE ONE PUFF BY MOUTH EVERY 4 HOURS FOR WHEEZING OR SHORTNESS OF BREATH 01/02/201912/23 Inactive gabapentin 300 mg capsule RxNorm: 122251 TAKE ONE CAPSULE BY MO UTH TWICE A DAY 12/30/2018 04/06/2019 Inactive furosemide 40 mg tablet RxNorm: 447539 1 Tablet(s) PO QAM 12/26/2018 02/23/2019 Inactive Compazine 10 mg tablet RxNorm: 749555 1 Tablet(s) PO QID as nee ded for nausea 12/07/2018 12/16/2018 Inactive metolazone 2.5 mg tablet RxNorm: 923377 TAKE ONE TABLET BY MOUT H EVERY MORNING 12/05/2018 01/03/2019 Inactive metformin ER 500 mg tablet,extended release 24 hr RxNorm: 86 0975 TAKE ONE TABLET BY MOUTH DAILY 12/05/2018 01/31/2020 Inactive Synthroid 50 mcg tablet RxNorm: 460889 1 Tablet(s) PO QD 11/25/2018 0 01/03/2019 Inactive DC any other synthroid strengths. Should be 50mcg only cyclobenzaprine 10 mg tablet RxNorm: 039217 TAKE ONE TA BLET BY MOUTH THREE TIMES A DAY NEEDED 11/09/2018 02/06/2019 Inactive metolazone 2.5 mg tablet RxNorm: 320579 1 Tablet(s) PO QAM repl aces 5mg dose 11/02/2018 12/01/2018 Inactive potassium chloride ER 20 mEq tablet,extended release RxNorm: 651757 2 Tablet(s) PO QD 2018 01/02/2019 Inactive Compazine 10 mg tablet RxNorm: 692541 1 Tablet(s) PO QID as nee ded for nausea 10/18/2018 12/07/2018 Inactive furosemide 40 mg tablet RxNorm: 755247 1 Tablet(s) PO QAM 10/12/2018 12/10/2018 Inactive ondansetron 8 mg disintegrating tablet RxNorm: 922611 1 Tablet(s) PO Q6H as needed 10/11/2018 10/17/2018 Inactive scopolamine 1 mg over 3 days transdermal patch RxNorm: 05932 2 1 Application TD behind ear. Take off after three days 10/11/2018 01/02/2019 Inactive furosemide 40 mg tablet RxNorm: 961222 1 Tablet(s) PO QAM 10/10/2018 12/26/2018 Inactive metolazone 5 mg tablet RxNorm: 130159 1 Tablet(s) PO QAM 10/06/2018 1 01/03/2018 Inactive metolazone 5 mg tablet RxNorm: 774074 1 Tablet(s) PO QAM 10/06/2018 1 12/05/2017 Inactive Xtampza ER 36 mg capsule sprinkle RxNorm: 9750727 1 Capsule(s) P O BID 10/05/2018 01/02/2019 Inactive Xtampza ER 36 mg capsule sprinkle RxNorm: 4663660 1 Capsule(s) P O BID 10/05/2018 02/12/2019 Inactive omeprazole 40 mg capsule,delayed release RxNorm: 034375 TAKE ONE CAPSULE BY MOUTH DAILY 10/03/2018 12/31/2018 Inactive Duragesic 100 mcg/hr transdermal patch RxNorm: 041350 2 Application TD Q48H for pain 09/30/2018 10/29/2018 Inactive Synthroid 50 mcg tablet RxNorm: 882078 1 Tablet(s) PO QD 09/29/2018 0 11/25/2018 Inactive DC any other synthroid strengths. Should be 50mcg only Synthroid 50 mcg tablet RxNorm: 058219 1 Tablet(s) PO QD 09/29/2018 1 11/28/2017 Inactive furosemide 40 mg tablet RxNorm: 215200 2 Tablet(s) PO Q AM for 1 week then every other day for 2 weeks 09/27/2018 10/12/2018 Inactive fluoxetine 40 mg capsule RxNorm: 432863 2 Capsule(s) PO QD 09/27/20 18 10/17/2018 Inactive potassium chloride ER 20 mEq tablet,extended release RxNorm: 330777 2 Tablet(s) PO QD for 1 week then every other day for 2 weeks 09/27/2018 2018 Inactive ProAir HFA 90 mcg/actuation aerosol inhaler RxNorm: 4038580 INHALE ONE PUFF BY MOUTH EVERY 4 HOURS FOR WHEEZING OR SHORTNESS OF BREATH 09/26/201811/23 Inactive Synthroid 75 mcg tablet RxNorm: 915730 1 Tablet(s) PO QD 09/09/2018 1 Inactive Synthroid 75 mcg tablet RxNorm: 384204 1 Tablet(s) PO QD 09/09/2018 1 11/28/2017 Inactive furosemide 40 mg tablet RxNorm: 062156 1 Tablet(s) PO QD 09/06/2018 1 Inactive potassium chloride ER 20 mEq tablet,extended release RxNorm: 198923 1 Tablet(s) PO QD 09/06/2018 09/19/2018 Inactive Duragesic 100 mcg/hr transdermal patch RxNorm: 313312 2 Application TD Q48H for pain 08/30/2018 09/28/2018 Inactive gabapentin 300 mg capsule RxNorm: 624221 TAKE ONE CAPSULE BY MO UT TWICE A DAY 08/23/2018 12/20/2018 Inactive Daliresp 500 mcg tablet RxNorm: 0294730 TAKE ONE TABLET BY MOUTH DAILY 08/23/2018 01/19/2019 Inactive Pulmicort 1 mg/2 mL suspension for nebulization RxNorm: 6168 19 USE ONE VIAL VIA NEBULIZER BY MOUTH TWICE A DAY 08/23/2018 07/11/2019 Inactive Synthroid 88 mcg tablet RxNorm: 979154 1 Tablet(s) PO QD 08/19/2018 1 Inactive Medrol (Aníbal) 4 mg tablets in a dose pack RxNorm: 782290 Tablet(s) PO take as directed 08/16/2018 09/05/2018 Inactive Relistor 150 mg tablet RxNorm: 6543179 3 Tablet(s) PO QD 08/16/2018 1 Inactive Zithromax Z-Aníbal 250 mg tablet RxNorm: 373696 Tablet(s) PO take as directed 08/16/2018 09/05/2018 Inactive cyclobenzaprine 10 mg tablet RxNorm: 532461 1 Tablet(s) PO TID as needed 08/16/2018 11/08/2018 Inactive Synthroid 88 mcg tablet RxNorm: 637526 1 Tablet(s) PO Q D NEEDS UPDATED LABS BEFORE FURTHER REFILLS 08/08/2018 08/19/2018 Inactive Premarin 0.45 mg tablet RxNorm: 227955 1 Tablet(s) PO QD 08/03/2018 0 01/31/2019 Inactive fluoxetine 20 mg capsule RxNorm: 609657 TAKE ONE CAPSULE BY BENOIT TH DAILY 08/03/2018 09/26/2018 Inactive Xtampza ER 36 mg capsule sprinkle RxNorm: 3308189 1 Capsule(s) P O BID 08/03/2018 09/01/2018 Inactive metformin ER 500 mg tablet,extended release 24 hr RxNorm: 86 0975 1 Tablet(s) PO QD 08/03/2018 10/31/2018 Inactive Symbicort 160 mcg-4.5 mcg/actuation HFA aerosol inhaler RxNo rm: 5601443 2 Puff(s) INH BID 08/03/2018 01/29/2019 Inactive Duragesic 100 mcg/hr transdermal patch RxNorm: 346352 2 Application TD Q48H for pain 07/29/2018 08/27/2018 Inactive ProAir HFA 90 mcg/actuation aerosol inhaler RxNorm: 396827 INHALE TWO PUFFS BY MOUTH EVERY 4 HOURS FOR WHEEZING OR SHORTNESS OF BREATH 07/27/201802/2018 Inactive Relistor 150 mg tablet RxNorm: 1415069 3 Tablet(s) PO QD 07/20/2018 0 08/15/2018 Inactive metformin ER 500 mg tablet,extended release 24 hr RxNorm: 86 0975 TAKE ONE TABLET BY MOUTH DAILY 07/08/2018 08/02/2018 Inactive fluoxetine 40 mg capsule RxNorm: 502058 TAKE ONE CAPSULE BY BENOIT TH EVERY MORNING 07/08/2018 10/05/2018 Inactive Xtampza ER 18 mg capsule sprinkle RxNorm: 4379910 1 Capsule(s) P O BID 07/08/2018 08/02/2018 Inactive Relistor 150 mg tablet RxNorm: 7302084 3 Tablet(s) PO QD 07/08/2018 0 07/12/2018 Inactive Synthroid 88 mcg tablet RxNorm: 822051 1 Tablet(s) PO Q D NEEDS UPDATED LABS BEFORE FURTHER REFILLS 06/23/2018 07/07/2018 Inactive fluoxetine 40 mg capsule RxNorm: 080619 TAKE ONE CAPSULE BY BENOIT TH EVERY MORNING 06/15/2018 09/26/2018 Inactive orphenadrine citrate ER 100 mg tablet,extended release RxNor m: 430340 TAKE ONE TABLET BY MOUTH TWICE A DAY FOR MUSCLE SPASM 06/15/2018 08/15/2018 Renu ctive Duragesic 100 mcg/hr transdermal patch RxNorm: 073523 2 Application TD Q48H for pain 05/30/2018 06/28/2018 Inactive ProAir HFA 90 mcg/actuation aerosol inhaler RxNorm: 587595 INHALE TWO PUFFS BY MOUTH EVERY 4 HOURS FOR WHEEZING OR SHORTNESS OF BREATH 05/19/2018 09/0 03/2018 Inactive Chantix Continuing Month Box 1 mg tablet RxNorm: 911740 TAKE ONE TABLET BY MOUTH TWICE A DAY 05/19/2018 08/15/2018 Inactive oxycodone 10 mg tablet RxNorm: 6991197 1-2 Tablet(s) PO QID as n eeded for pain 05/19/2018 07/07/2018 Inactive gabapentin 300 mg capsule RxNorm: 339199 TAKE ONE CAPSULE BY MO UT TWICE A DAY 05/18/2018 07/16/2018 Inactive ProAir HFA 90 mcg/actuation aerosol inhaler RxNorm: 208687 INHALE TWO PUFFS BY MOUTH EVERY 4 HOURS FOR WHEEZING OR SHORTNESS OF BREATH 05/04/201804/23 Inactive Augmentin 500 mg-125 mg tablet RxNorm: 808441 1 Tablet(s) PO BID 05/03/2018 Inactive oxycodone 10 mg tablet RxNorm: 3063609 1-2 Tablet(s) PO QID as n eeded for pain 04/21/2018 05/18/2018 Inactive Synthroid 88 mcg tablet RxNorm: 895397 1 Tablet(s) PO QD 04/15/2018 0 08/08/2018 Inactive Symbicort 160 mcg-4.5 mcg/actuation HFA aerosol inhaler RxNo rm: 7017496 2 Puff(s) INH BID 04/15/2018 04/10/2019 Inactive Premarin 0.45 mg tablet RxNorm: 570341 1 Tablet(s) PO QD 04/15/2018 0 08/03/2018 Inactive ProAir HFA 90 mcg/actuation aerosol inhaler RxNorm: 355004 2 Puff(s) INH Q4H prn for wheezing or shortness of breath 04/15/2018 05/03/2018 Inactive metformin ER 500 mg tablet,extended release 24 hr RxNorm: 86 0975 1 Tablet(s) PO QD 04/11/2018 07/07/2018 Inactive omeprazole 40 mg capsule,delayed release RxNorm: 410326 TAKE ONE CAPSULE BY MOUTH DAILY 04/10/2018 06/08/2018 Inactive Synthroid 88 mcg tablet RxNorm: 809240 1 Tablet(s) PO QD 04/04/2018 0 04/14/2018 Inactive Synthroid 88 mcg tablet RxNorm: 852420 1 Tablet(s) PO QD 04/04/2018 0 04/03/2018 Inactive orphenadrine citrate ER 100 mg tablet,extended release RxNor m: 518716 1 Tablet(s) PO BID for muscle spasm 04/04/2018 05/03/2018 Inactive metformin ER 500 mg tablet,extended release 24 hr RxNorm: 86 0975 1 Tablet(s) PO QD NEEDS UPDATED LABS 03/31/2018 04/11/2018 Inactive doxycycline hyclate 100 mg capsule RxNorm: 1738233 1 Capsule(s) PO BID 03/31/2018 04/09/2018 Inactive prednisone 20 mg tablet RxNorm: 583064 3 Tablet(s) PO T ID for 3 days then 1 po BID for 3 days then one daily for 3 days 03/31/2018 07/06/2018 Inactiv e Chantix Continuing Month Box 1 mg tablet RxNorm: 958364 TAKE ONE TABLET BY MOUTH TWICE A DAY 03/25/2018 03/30/2018 Inactive oxycodone 10 mg tablet RxNorm: 1861361 1-2 Tablet(s) PO QID as n eeded for pain 03/21/2018 04/20/2018 Inactive Daliresp 500 mcg tablet RxNorm: 4257853 1 Tablet(s) PO QD 03/15/2018 08/22/2018 Inactive metformin ER 500 mg tablet,extended release 24 hr RxNorm: 86 0975 1 Tablet(s) PO QD NEEDS UPDATED LABS 03/14/2018 03/31/2018 Inactive nystatin 100,000 unit/mL oral suspension RxNorm: 421431 5 Chio liter(s) PO QID 03/02/2018 03/15/2018 Inactive nystatin 100,000 unit/mL oral suspension RxNorm: 661248 5 Chio liter(s) PO QID 03/02/2018 03/01/2018 Inactive oxycodone 10 mg tablet RxNorm: 9317787 1-2 Tablet(s) PO QID as n eeded for pain 02/16/2018 03/20/2018 Inactive fluoxetine 20 mg capsule RxNorm: 039967 1 Capsule(s) PO QD 02/15/20 18 08/02/2018 Inactive metformin ER 500 mg tablet,extended release 24 hr RxNorm: 86 0975 1 Tablet(s) PO QD Needs updated labs 02/14/2018 03/14/2018 Inactive cefdinir 300 mg capsule RxNorm: 232030 1 Capsule(s) PO BID 01/27/20 18 02/04/2018 Inactive orphenadrine citrate ER 100 mg tablet,extended release RxNor m: 871482 1 Tablet(s) PO BID for muscle spasm 01/26/2018 04/04/2018 Inactive gabapentin 300 mg capsule RxNorm: 191490 1 Capsule(s) PO BID 201704/17/2018 Inactive oxycodone 10 mg tablet RxNorm: 6117149 1-2 Tablet(s) PO QID as n eeded for pain 01/17/2018 02/15/2018 Inactive Duragesic 100 mcg/hr transdermal patch RxNorm: 126194 2 Application TD Q48H for pain 01/17/2018 02/15/2018 Inactive gabapentin 300 mg capsule RxNorm: 552012 TAKE ONE CAPSULE BY MO UTH TWICE A DAY 12/20/2017 01/18/2018 Inactive fluoxetine 40 mg capsule RxNorm: 181265 TAKE ONE CAPSULE BY BENOIT TH EVERY MORNING 12/15/2017 03/14/2018 Inactive OneTouch Ultra Test strips RxNorm: TEST DAILY 11/04/2017 02/01/2018 Inactive gabapentin 300 mg capsule RxNorm: 424695 1 Capsule(s) P O TID replaces BID dosing 10/26/2017 02/22/2018 Inactive oxycodone 10 mg tablet RxNorm: 4195393 1-2 Tablet(s) PO QID as n eeded for pain 10/18/2017 01/16/2018 Inactive Duragesic 100 mcg/hr transdermal patch RxNorm: 947835 2 Application TD Q48H for pain 10/18/2017 11/16/2017 Inactive gabapentin 300 mg capsule RxNorm: 010421 1 Capsule(s) PO BID 201610/25/2017 Inactive Abilify 5 mg tablet RxNorm: 601938 1 Tablet(s) PO QAM 09/23/201702/2017 Inactive gabapentin 300 mg capsule RxNorm: 619112 1 Capsule(s) PO BID 201610/17/2017 Inactive oxycodone 10 mg tablet RxNorm: 6297800 1-2 Tablet(s) PO QID as n eeded for pain 09/15/2017 10/17/2017 Inactive Duragesic 100 mcg/hr transdermal patch RxNorm: 099656 2 Application TD Q48H for pain 09/15/2017 10/14/2017 Inactive Duragesic 100 mcg/hr transdermal patch RxNorm: 943551 2 Application TD Q48H for pain 09/15/2017 10/24/2019 Inactive oxycodone 10 mg tablet RxNorm: 3857033 1-2 Tablet(s) PO QID as n eeded for pain 09/15/2017 08/15/2018 Inactive Daliresp 500 mcg tablet RxNorm: 2293731 1 Tablet(s) PO QD 09/06/2017 03/15/2018 Inactive Ventolin HFA 90 mcg/actuation aerosol inhaler RxNorm: 910053 2 Puff(s) INH Q4H as needed 09/02/2017 05/19/2018 Inactive oxycodone 10 mg tablet RxNorm: 7368948 1-2 Tablet(s) PO QID as n eeded for pain 08/17/2017 09/14/2017 Inactive Duragesic 100 mcg/hr transdermal patch RxNorm: 059858 2 Application TD Q48H for pain 08/17/2017 09/14/2017 Inactive fluoxetine 40 mg capsule RxNorm: 132792 Capsule(s) TAKE ONE CAPSULE BY MOUTH EVERY MORNING 08/17/2017 12/14/2017 Inactive Pulmicort 1 mg/2 mL suspension for nebulization RxNorm: 6168 19 1 Unit Dose INH BID Dx: COPD (J44.9) 08/16/2017 08/22/2018 Inactive gabapentin 300 mg capsule RxNorm: 471734 1 Capsule(s) PO QHS 201610/18/2017 Inactive fluoxetine 20 mg capsule RxNorm: 806820 1 Capsule(s) PO QD 08/12/20 17 02/14/2018 Inactive Abilify 2 mg tablet RxNorm: 130486 1 Tablet(s) PO QD TA KE ONE TABLET BY MOUTH DAILY 08/12/2017 10/25/2017 Inactive metformin ER 500 mg tablet,extended release 24 hr RxNorm: 86 0975 1 Tablet(s) PO QD 08/10/2017 02/14/2018 Inactive Synthroid 112 mcg tablet RxNorm: 453832 1 Tablet(s) PO QD 08/10/2017 04/15/2018 Inactive oxycodone 10 mg tablet RxNorm: 4687858 1-2 Tablet(s) PO QID as n eeded for pain 07/19/2017 08/16/2017 Inactive Duragesic 100 mcg/hr transdermal patch RxNorm: 309944 2 Application TD Q48H for pain 07/19/2017 08/16/2017 Inactive Ventolin HFA 90 mcg/actuation aerosol inhaler RxNorm: 880147 2 Puff(s) INH Q4H as needed 07/12/2017 09/02/2017 Inactive Abilify 2 mg tablet RxNorm: 822380 1 Tablet(s) PO QD TA KE ONE TABLET BY MOUTH DAILY 07/06/2017 08/11/2017 Inactive gabapentin 800 mg tablet RxNorm: 345434 1 Tablet(s) PO TID 06/22/20 17 07/05/2017 Inactive Chantix Starting Month Box 0.5 mg (11)-1 mg (42) table ts in dose pack RxNorm: 914578 TAKE BY MOUTH INSTRUCTED - PER PACKAGE INSTRUCTIONS 06/0707/04/2017 Inactive Ventolin HFA 90 mcg/actuation aerosol inhaler RxNorm: 967147 2 Puff(s) INH Q4H as needed 05/26/2017 07/12/2017 Inactive Duragesic 100 mcg/hr transdermal patch RxNorm: 397878 2 Application TD Q48H for pain 05/19/2017 06/17/2017 Inactive oxycodone 10 mg tablet RxNorm: 0013746 1-2 Tablet(s) PO QID as n eeded for pain 05/19/2017 07/18/2017 Inactive Abilify 2 mg tablet RxNorm: 370975 TAKE ONE TABLET BY MOUTH DAILY 0 05/10/2017 07/05/2017 Inactive Synthroid 112 mcg tablet RxNorm: 435502 1 Tablet(s) PO QD 05/06/2017 08/10/2017 Inactive metformin ER 500 mg tablet,extended release 24 hr RxNorm: 86 0975 1 Tablet(s) PO QD 05/06/2017 08/10/2017 Inactive Topamax 100 mg tablet RxNorm: 966483 1 Tablet(s) PO QHS 05/06/2017 Inactive Premarin 0.45 mg tablet RxNorm: 777851 1 Tablet(s) PO QD 05/06/2017 0 04/15/2018 Inactive orphenadrine citrate ER 100 mg tablet,extended release RxNor m: 349002 1 Tablet(s) PO TID for muscle spasm--replaces methocarbamol 04/29/2017 Inactive oxycodone 10 mg tablet RxNorm: 0322119 1-2 Tablet(s) PO QID as n eeded for pain 04/21/2017 05/18/2017 Inactive Duragesic 100 mcg/hr transdermal patch RxNorm: 221974 2 Application TD Q48H for pain 04/21/2017 05/18/2017 Inactive fluoxetine 40 mg capsule RxNorm: 851358 Capsule(s) TAKE ONE CAPSULE BY MOUTH EVERY MORNING 04/20/2017 08/17/2017 Inactive Ventolin HFA 90 mcg/actuation aerosol inhaler RxNorm: 423313 2 Puff(s) INH Q4H as needed 04/05/2017 05/26/2017 Inactive Symbicort 160 mcg-4.5 mcg/actuation HFA aerosol inhaler RxNo rm: 2794785 2 Puff(s) INH BID 03/30/2017 04/15/2018 Inactive Spiriva with HandiHaler 18 mcg and inhalation capsules RxNor m: 417778 1 Capsule(s) INH QD USING HANDIHALER 03/30/2017 02/12/2019 Inactive Duragesic 100 mcg/hr transdermal patch RxNorm: 938338 2 Application TD Q48H for pain 03/18/2017 04/16/2017 Inactive oxycodone 10 mg tablet RxNorm: 0259061 1-2 Tablet(s) PO QID as n eeded for pain 03/18/2017 04/20/2017 Inactive metformin ER 500 mg tablet,extended release 24 hr RxNorm: 86 0975 Tablet(s) TAKE ONE TABLET BY MOUTH DAILY 03/01/2017 05/06/2017 Inactive Premarin 0.45 mg tablet RxNorm: 077879 Tablet(s) TAKE ONE TABLE T BY MOUTH DAILY 03/01/2017 05/06/2017 Inactive Synthroid 112 mcg tablet RxNorm: 425506 Tablet(s) TAKE ONE TABLET BY MOUTH DAILY 03/01/2017 05/06/2017 Inactive Daliresp 500 mcg tablet RxNorm: 3141293 1 Tablet(s) PO QD 03/01/2017 09/06/2017 Inactive 16.2 mg-0.1037 mg-0.0194 mg tablet RxNorm: 0112188 Tablet(s) PO PRN for gas and cramping 02/23/2017 04/28/2017 Inactive TAKE TWO TABLET S BY MOUTH THREE TIMES A DAY NEEDED FOR GAS AND CRAMPING gabapentin 800 mg tablet RxNorm: 314864 1 Tablet(s) PO TID repl aces 600mg 02/23/2017 04/28/2017 Inactive Duragesic 100 mcg/hr transdermal patch RxNorm: 787382 2 Application TD Q48H for pain 02/17/2017 03/17/2017 Inactive fluoxetine 20 mg capsule RxNorm: 638460 1 Capsule(s) PO QD 02/18/20 17 08/12/2017 Inactive oxycodone 20 mg tablet RxNorm: 1745787 1 Tablet(s) PO QID as nee ded for pain 02/17/2017 03/17/2017 Inactive Ventolin HFA 90 mcg/actuation aerosol inhaler RxNorm: 854291 INHALE TWO PUFFS BY MOUTH EVERY 4 HOURS NEEDED 02/15/2017 04/05/2017 Inactive Silvadene 1 % topical cream RxNorm: 888517 1 Application TOP BI D to burn area 02/01/2017 09/22/2017 Inactive Topamax 100 mg tablet RxNorm: 918763 TAKE ONE TABLET BY MOUTH EVERY NIGHT AT BEDTIME 01/29/2017 05/06/2017 Inactive Chantix Starting Month Box 0.5 mg (11)-1 mg (42) table ts in dose pack RxNorm: 226316 Tablet(s) PO as directed 01/29/2017 06/01/2017 Inactive Abilify 2 mg tablet RxNorm: 591761 TAKE ONE TABLET BY MOUTH DAILY 0 01/26/2017 04/25/2017 Inactive Chantix Starting Month Box 0.5 mg (11)-1 mg (42) table ts in dose pack RxNorm: 380996 Tablet(s) PO as directed 01/20/2017 01/28/2017 Inactive gabapentin 600 mg tablet RxNorm: 042765 1 Tablet(s) PO TID 01/21/20 17 02/22/2017 Inactive Chantix Continuing Month Box 1 mg tablet RxNorm: 701048 1 Table t(s) PO BID 12/31/2016 06/01/2017 Inactive Spiriva with HandiHaler 18 mcg and inhalation capsules RxNor m: 472318 INHALE THE ENTIRE CONTENTS OF 1 CAPSULE ONCE A DAY USING HANDIHALER 12/31/201607/2017 Inactive Synthroid 112 mcg tablet RxNorm: 607604 TAKE ONE TABLET BY MOUT H DAILY 12/30/2016 03/01/2017 Inactive metformin ER 500 mg tablet,extended release 24 hr RxNorm: 86 0975 TAKE ONE TABLET BY MOUTH DAILY 12/30/2016 03/01/2017 Inactive Premarin 0.45 mg tablet RxNorm: 243354 TAKE ONE TABLET BY MOUTH DAILY 12/30/2016 03/01/2017 Inactive omeprazole 40 mg capsule,delayed release RxNorm: 616379 TAKE ONE CAPSULE BY MOUTH DAILY 12/30/2016 01/25/2018 Inactive Ventolin HFA 90 mcg/actuation aerosol inhaler RxNorm: 173532 INHALE TWO PUFFS BY MOUTH EVERY 4 HOURS NEEDED 12/28/2016 02/13/2017 Inactive fluoxetine 40 mg capsule RxNorm: 470247 TAKE ONE CAPSULE BY BENOIT TH EVERY MORNING 12/15/2016 04/20/2017 Inactive Chantix Continuing Month Box 1 mg tablet RxNorm: 692326 TAKE ONE TABLET BY MOUTH TWICE A DAY 12/04/2016 12/31/2016 Inactive doxycycline hyclate 100 mg capsule RxNorm: 2271426 1 Capsule(s) PO BID 12/01/2016 12/07/2016 Inactive Levaquin 750 mg tablet RxNorm: 369108 1 Tablet(s) PO QD 12/01/2016 Inactive Abilify 2 mg tablet RxNorm: 043456 TAKE ONE TABLET BY MOUTH DAILY 0 11/25/2016 11/30/2016 Inactive Ventolin HFA 90 mcg/actuation aerosol inhaler RxNorm: 350286 INHALE TWO PUFFS BY MOUTH EVERY 4 HOURS NEEDED 11/02/2016 12/19/2016 Inactive Chantix Continuing Month Box 1 mg tablet RxNorm: 727959 Tablet(s) PO as directed 10/30/2016 12/03/2016 Inactive Symbicort 160 mcg-4.5 mcg/actuation HFA aerosol inhaler RxNo rm: 4304148 INHALE TWO PUFFS TWO TIMES A DAY 10/30/2016 03/30/2017 Inactive Abilify 2 mg tablet RxNorm: 873978 1 Tablet(s) PO QD 10/27/201611/24 Inactive amoxicillin 500 mg capsule RxNorm: 327767 1 Capsule(s) PO TID 10/1410/23/2016 Inactive amoxicillin 500 mg capsule RxNorm: 006112 1 Capsule(s) PO TID 10/1410/13/2016 Inactive Synthroid 112 mcg tablet RxNorm: 152002 TAKE ONE TABLET BY MOUT H DAILY 09/28/2016 12/29/2016 Inactive Topamax 100 mg tablet RxNorm: 415232 TAKE ONE TABLET BY MOUTH EVERY NIGHT AT BEDTIME 09/28/2016 01/28/2017 Inactive Premarin 0.45 mg tablet RxNorm: 647475 TAKE ONE TABLET BY MOUTH DAILY 09/28/2016 12/29/2016 Inactive metformin ER 500 mg tablet,extended release 24 hr RxNorm: 86 0975 TAKE ONE TABLET BY MOUTH DAILY 09/28/2016 12/29/2016 Inactive Ventolin HFA 90 mcg/actuation aerosol inhaler RxNorm: 985441 INHALE TWO PUFFS BY MOUTH EVERY 4 HOURS NEEDED 09/22/2016 10/23/2016 Inactive Pulmicort 1 mg/2 mL suspension for nebulization RxNorm: 6168 19 1 Unit Dose INH BID Dx: COPD (J44.9) 09/10/2016 08/16/2017 Inactive Pulmicort 1 mg/2 mL suspension for nebulization RxNorm: 6168 19 1 Unit Dose INH BID 09/10/2016 09/09/2016 Inactive Brovana 15 mcg/2 mL solution for nebulization RxNorm: 515001 1 Unit Dose INH BID Dx: COPD (J44.9) 09/10/2016 01/25/2018 Inactive Brovana 15 mcg/2 mL solution for nebulization RxNorm: 242783 1 Unit Dose INH BID 09/10/2016 09/09/2016 Inactive ipratropium-albuterol 0.5 mg-3 mg(2.5 mg base)/3 mL ne bulization soln RxNorm: 0664755 1 Unit Dose INH Q4H as needed Dx: COPD (J44.9) 09/10/2016 0 02/12/2019 Inactive orphenadrine citrate ER 100 mg tablet,extended release RxNor m: 627062 1 Tablet(s) PO BID for muscle spasm--replaces methocarbamol 09/09/2016 Inactive Chantix Continuing Month Box 1 mg tablet RxNorm: 083306 Tablet(s) PO as directed 09/09/2016 10/30/2016 Inactive orphenadrine citrate ER 100 mg tablet,extended release RxNor m: 036797 1 Tablet(s) PO BID for muscle spasm 09/09/2016 09/08/2016 Inactive Spiriva with HandiHaler 18 mcg and inhalation capsules RxNor m: 634093 INHALE THE ENTIRE CONTENTS OF 1 CAPSULE ONCE A DAY USING HANDIHALER 09/01/201605/2017 Inactive Daliresp 500 mcg tablet RxNorm: 6593613 1 Tablet(s) PO QD 08/27/2016 03/01/2017 Inactive prednisone 20 mg tablet RxNorm: 877207 3 Tablet(s) PO T ID for 3 days then 1 po BID for 3 days then one daily for 3 days 08/26/2016 04/28/2017 Inactiv e Wellbutrin XL 300 mg 24 hr tablet, extended release RxNorm: 551598 TAKE ONE TABLET BY MOUTH EVERY MORNING 07/29/2016 10/26/2016 Inactive gabapentin 600 mg tablet RxNorm: 014923 1 Tablet(s) PO BID 06/26/20 16 12/22/2016 Inactive fluoxetine 40 mg capsule RxNorm: 266056 TAKE ONE CAPSULE BY BENOIT TH EVERY MORNING 06/24/2016 11/20/2016 Inactive Duragesic 100 mcg/hr transdermal patch RxNorm: 358853 2 Application TD Q48H for pain 06/05/2016 07/04/2016 Inactive oxycodone 10 mg tablet RxNorm: 3216990 1-2 Tablet(s) PO QID as n eeded for pain 06/05/2016 03/17/2017 Inactive Belladonna-Phenobarbital 48 mg tablet,extended release RxNor m: 2 Tablet(s) PO TID 06/05/2016 01/19/2017 Inactive Premarin 0.45 mg tablet RxNorm: 367430 TAKE ONE TABLET BY MOUTH DAILY 05/27/2016 09/23/2016 Inactive Topamax 100 mg tablet RxNorm: 088693 TAKE ONE TABLET BY MOUTH EVERY NIGHT AT BEDTIME 05/27/2016 09/27/2016 Inactive Synthroid 112 mcg tablet RxNorm: 664123 TAKE ONE TABLET BY MOUT H DAILY 05/27/2016 09/23/2016 Inactive metformin ER 500 mg tablet,extended release 24 hr RxNorm: 86 0975 TAKE ONE TABLET BY MOUTH DAILY 05/27/2016 09/23/2016 Inactive Symbicort 160 mcg-4.5 mcg/actuation HFA aerosol inhaler RxNo rm: 2237555 INHALE TWO PUFFS TWO TIMES A DAY 05/27/2016 10/23/2016 Inactive Ventolin HFA 90 mcg/actuation aerosol inhaler RxNorm: 369577 INHALE TWO PUFFS BY MOUTH EVERY 4 HOURS NEEDED 05/21/2016 07/07/2016 Inactive omeprazole 40 mg capsule,delayed release RxNorm: 716111 1 Capsu le(s) PO QD 05/06/2016 08/03/2016 Inactive metformin ER 500 mg tablet,extended release 24 hr RxNorm: 86 0975 TAKE ONE TABLET BY MOUTH DAILY 04/23/2016 05/22/2016 Inactive methocarbamol 750 mg tablet RxNorm: 953072 2 Tablet(s) PO TID as needed for muscle spasm 04/23/2016 09/08/2016 Inactive Synthroid 112 mcg tablet RxNorm: 588969 TAKE ONE TABLET BY MOUT H DAILY 04/23/2016 05/22/2016 Inactive Spiriva with HandiHaler 18 mcg and inhalation capsules RxNor m: 047516 INHALE THE ENTIRE CONTENTS OF 1 CAPSULE ONCE A DAY USING HANDIHALER 04/09/201608/2016 Inactive Diflucan 100 mg tablet RxNorm: 578574 1 Tablet(s) PO QD 04/08/2016 Inactive doxycycline hyclate 100 mg capsule RxNorm: 9456346 1 Capsule(s) PO BID 04/08/2016 04/17/2016 Inactive doxycycline hyclate 100 mg capsule RxNorm: 1330581 1 Capsule(s) PO BID 04/08/2016 04/07/2016 Inactive Diflucan 100 mg tablet RxNorm: 852801 1 Tablet(s) PO QD 04/08/2016 Inactive ondansetron HCl 4 mg tablet RxNorm: 646647 1 Tablet(s) PO Q4H as needed for nausea and vomiting 04/08/2016 09/22/2017 Inactive gabapentin 600 mg tablet RxNorm: 582163 TAKE ONE TABLET BY MOUT H TWICE A DAY 03/24/2016 06/25/2016 Inactive Synthroid 112 mcg tablet RxNorm: 024070 TAKE ONE TABLET BY MOUT H DAILY 02/25/2016 04/22/2016 Inactive Levaquin 500 mg tablet RxNorm: 789915 1 Tablet(s) PO QD 01/23/2016 Inactive prednisone 20 mg tablet RxNorm: 273956 1 Tablet(s) PO T ID for 3 days then 1 po BID for 3 days then one daily for 3 days 01/23/2016 08/25/2016 Inactiv e Klash Ultra Test strips RxNorm: TEST BLOOD SUGAR ONCE DAILY 250.00 01/09/2016 11/04/2017 Inactive methocarbamol 750 mg tablet RxNorm: 880379 2 Tablet(s) PO TID as needed for muscle spasm 01/09/2016 04/23/2016 Inactive lactulose 10 gram/15 mL oral solution RxNorm: 066222 [address](s) PO QD 01/09/2016 09/22/2017 Inactive TAKE 1 TABLESPOON BY MOUTH ONCE DAILY metformin ER 500 mg tablet,extended release 24 hr RxNorm: 86 0975 1 Tablet(s) PO QD 12/26/2015 04/22/2016 Inactive fluoxetine 20 mg capsule RxNorm: 746062 1 Capsule(s) PO QD 12/23/19 16 06/19/2016 Inactive Premarin 0.45 mg tablet RxNorm: 160635 TAKE ONE TABLET BY MOUTH DAILY 12/23/2015 05/20/2016 Inactive fluoxetine 40 mg capsule RxNorm: 477540 1 Capsule(s) PO QD 12/23/19 16 06/19/2016 Inactive TAKE ONE CAPSULE BY MOUTH EV JANKI MORNING azithromycin 500 mg tablet RxNorm: 159937 1 Tablet(s) PO QD 016 12/19/2015 Inactive Zofran 4 mg tablet RxNorm: 285642 1 Tablet(s) PO Q4H prn nausea /vomiting 12/13/2015 03/30/2018 Inactive azithromycin 500 mg tablet RxNorm: 447745 1 Tablet(s) PO QD 016 12/12/2015 Inactive Duragesic 100 mcg/hr transdermal patch RxNorm: 460156 2 Application TD Q48H for pain 12/09/2015 01/07/2016 Inactive oxycodone 10 mg tablet RxNorm: 8555627 1-2 Tablet(s) PO QID as n eeded for pain 12/09/2015 06/04/2016 Inactive Bactroban 2 % topical cream RxNorm: 447743 Application TOP BID 11/2208/25/2016 Inactive doxycycline hyclate 100 mg capsule RxNorm: 2797814 1 Capsule(s) PO BID 12/03/2015 12/12/2015 Inactive Topamax 100 mg tablet RxNorm: 625784 TAKE ONE TABLET BY MOUTH EVERY NIGHT AT BEDTIME 11/25/2015 05/22/2016 Inactive Symbicort 160 mcg-4.5 mcg/actuation HFA aerosol inhaler RxNo rm: 2444947 INHALE TWO PUFFS TWO TIMES A DAY 11/25/2015 05/22/2016 Inactive Synthroid 112 mcg tablet RxNorm: 943483 Tablet(s) TAKE ONE TABLET BY MOUTH DAILY 11/25/2015 02/22/2016 Inactive omeprazole 40 mg capsule,delayed release RxNorm: 520114 1 Capsu le(s) PO QD 11/12/2015 05/05/2016 Inactive oxycodone 10 mg tablet RxNorm: 9181883 1-2 Tablet(s) PO QID as n eeded for pain 11/05/2015 12/08/2015 Inactive Duragesic 100 mcg/hr transdermal patch RxNorm: 760169 2 Application TD Q48H for pain 11/05/2015 12/04/2015 Inactive omeprazole 40 mg capsule,delayed release RxNorm: 063750 1 Capsu le(s) PO QD 10/07/2015 11/11/2015 Inactive Januvia 100 mg tablet RxNorm: 309337 TAKE ONE TABLET BY MOUTH DAILY 09/11/2015 12/25/2015 Inactive Zithromax 500 mg tablet RxNorm: 857538 1 Tablet(s) PO QD 09/10/2015 1 Inactive prednisone 20 mg tablet RxNorm: 963186 1 Tablet(s) PO T ID for 3 days then 1 po BID for 3 days then one daily for 3 days 09/10/2015 08/25/2016 Inactiv e Wellbutrin XL 300 mg 24 hr tablet, extended release RxNorm: 618997 1 Tablet(s) PO QAM 09/10/2015 12/02/2015 Inactive Topamax 100 mg tablet RxNorm: 712962 TAKE ONE TABLET BY MOUTH EVERY NIGHT AT BEDTIME 09/02/2015 11/24/2015 Inactive Synthroid 112 mcg tablet RxNorm: 602624 TAKE ONE TABLET BY MOUT H DAILY 09/02/2015 11/25/2015 Inactive methocarbamol 750 mg tablet RxNorm: 719873 2 Tablet(s) PO TID as needed for muscle spasm 08/15/2015 01/09/2016 Inactive Wellbutrin XL 150 mg 24 hr tablet, extended release RxNorm: 638759 TAKE ONE TABLET BY MOUTH EVERY MORNING 08/13/2015 08/13/2015 Inactive gabapentin 600 mg tablet RxNorm: 537030 1 Tablet(s) PO BID 08/13/20 15 02/08/2016 Inactive Wellbutrin XL 300 mg 24 hr tablet, extended release RxNorm: 993114 1 Tablet(s) PO QAM 08/06/2015 09/09/2015 Inactive Wellbutrin XL 150 mg 24 hr tablet, extended release RxNorm: 566497 1 Tablet(s) PO QAM 07/18/2015 08/05/2015 Inactive prednisone 20 mg tablet RxNorm: 721037 1 Tablet(s) PO BID 07/18/2015 07/22/2015 Inactive doxycycline hyclate 100 mg tablet,delayed release RxNorm: 43 4018 1 Tablet(s) PO BID 07/18/2015 07/27/2015 Inactive pravastatin 40 mg tablet RxNorm: 536840 1 Tablet(s) PO QD NEEDS FASTING LAB 07/15/2015 07/14/2015 Inactive pravastatin 40 mg tablet RxNorm: 418360 1 Tablet(s) PO QD NEEDS FASTING LAB 07/15/2015 01/25/2018 Inactive Ventolin HFA 90 mcg/actuation aerosol inhaler RxNorm: 483222 2 Puff(s) INH Q4H 07/08/2015 07/07/2015 Inactive prn Premarin 0.45 mg tablet RxNorm: 576934 1 Tablet(s) PO QD 07/01/2015 0 12/22/2015 Inactive pravastatin 40 mg tablet RxNorm: 235258 1 Tablet(s) PO QD NEEDS FASTING LAB 06/14/2015 07/15/2015 Inactive Ventolin HFA 90 mcg/actuation aerosol inhaler RxNorm: 2034351 2 Puff(s) INH Q4H 06/06/2015 07/08/2015 Inactive prn albuterol sulfate 2.5 mg/3 mL (0.083 %) solution for n ebulization RxNorm: 146205 1 Unit Dose INH QID 05/30/2015 No Stop Date Active Duragesic 100 mcg/hr transdermal patch RxNorm: 200601 2 Application TD Q48H for pain 04/29/2015 05/28/2015 Inactive gabapentin 600 mg tablet RxNorm: 223073 1 Tablet(s) PO BID 04/11/20 15 08/13/2015 Inactive Onglyza 5 mg tablet RxNorm: 749936 1 Tablet(s) PO QD for blood suga r 04/10/2015 04/15/2015 Inactive [Brand Copay Card: RxBIN:[id number] N:CRISTIANA RxGRP:[id number] ID#:[id number]] methocarbamol 750 mg tablet RxNorm: 088383 2 Tablet(s) PO TID as needed for muscle spasm 03/28/2015 08/15/2015 Inactive pravastatin 40 mg tablet RxNorm: 936108 1 Tablet(s) PO QD 03/19/2015 03/18/2015 Inactive pravastatin 40 mg tablet RxNorm: 837989 1 Tablet(s) PO QD 03/19/2015 06/14/2015 Inactive lactulose 10 gram/15 mL oral solution RxNorm: 213407 [address]s) PO QD 03/07/2015 01/09/2016 Inactive TAKE 1 TABLESPOON BY MOUTH ONCE DAILY oxycodone 20 mg tablet RxNorm: 6362259 1 Tablet(s) PO QID as nee ded for pain 03/05/2015 07/08/2015 Inactive Topamax 100 mg tablet RxNorm: 259929 1 Tablet(s) PO QHS TAKE ONE TABLET BY MOUTH AT BEDTIME 02/25/2015 02/12/2019 Inactive metformin ER 500 mg tablet,extended release 24 hr RxNorm: 86 0975 1 Tablet(s) PO QD 02/11/2015 03/04/2015 Inactive take one tablet by mouth every day Daliresp 500 mcg tablet RxNorm: 5412770 1 Tablet(s) PO QD 02/11/2015 08/09/2015 Inactive Endocet 10 mg-325 mg tablet RxNorm: 4406404 1 Tablet(s) PO Q4H as needed for pain 01/23/2015 01/23/2015 Inactive gabapentin 600 mg tablet RxNorm: 766833 1 Tablet(s) PO BID 01/23/20 15 04/11/2015 Inactive methocarbamol 750 mg tablet RxNorm: 491337 2 Tablet(s) PO TID as needed for muscle spasm 01/15/2015 02/13/2015 Inactive fluoxetine 40 mg capsule RxNorm: 558910 1 Capsule(s) PO QD 01/14/20 15 12/23/2015 Inactive TAKE ONE CAPSULE BY MOUTH EV JANKI MORNING fluoxetine 20 mg capsule RxNorm: 405024 1 Capsule(s) PO QD 01/14/20 15 12/23/2015 Inactive Premarin 0.45 mg tablet RxNorm: 794739 1 Tablet(s) PO QD 01/02/2015 0 07/01/2015 Inactive Endocet 10 mg-325 mg tablet RxNorm: 5532689 1-2 Tablet(s) PO Q4H 02/12/2019 Inactive PRN PAIN Duragesic 100 mcg/hr transdermal patch RxNorm: 777215 2 Application TD Q48H for pain 12/25/2014 01/23/2015 Inactive Topamax 100 mg tablet RxNorm: 717551 1 Tablet(s) PO QHS TAKE ONE TABLET BY MOUTH AT BEDTIME 12/25/2014 02/24/2015 Inactive Tudorza Pressair 400 mcg/actuation breath activated RxNorm: 1727164 1 BID INHALE ONE PUFF INTO LUNGS TWO TIMES A DAY 12/17/2014 05/15/2015 Inactive Endocet 10 mg-325 mg tablet RxNorm: 6007327 1-2 Tablet(s) PO Q4H 12/19/2014 Inactive PRN PAIN Duragesic 100 mcg/hr transdermal patch RxNorm: 407986 2 Application TD Q48H for pain 11/20/2014 12/24/2014 Inactive OneTouch Ultra Test strips RxNorm: TEST BLOOD SUGAR ONCE DAILY 250.00 11/16/2014 01/08/2016 Inactive omeprazole 40 mg capsule,delayed release RxNorm: 756318 1 Capsu le(s) PO QD 11/13/2014 11/12/2015 Inactive metformin ER 500 mg tablet,extended release 24 hr RxNorm: 86 0975 1 Tablet(s) PO QD 11/12/2014 02/11/2015 Inactive take one tablet by mouth every day Symbicort 160 mcg-4.5 mcg/actuation HFA aerosol inhaler RxNo rm: 4881857 2 Puff(s) INH BID 11/12/2014 03/11/2015 Inactive INHALE 2 PUFFS O RALLY TWO TIMES A DAY gabapentin 800 mg tablet RxNorm: 950994 1 Tablet(s) PO QD TAKE ONE TABLET BY MOUTH ONCE A DAY 10/22/2014 01/01/2015 Inactive Endocet 10 mg-325 mg tablet RxNorm: 7223711 1-2 Tablet(s) PO Q4H 11/15/2014 Inactive PRN PAIN Duragesic 100 mcg/hr transdermal patch RxNorm: 567207 2 Application TD Q48H for pain 10/17/2014 11/19/2014 Inactive gabapentin 800 mg tablet RxNorm: 657141 1 Tablet(s) PO QD TAKE ONE TABLET BY MOUTH ONCE A DAY 10/04/2014 10/21/2014 Inactive Premarin 0.9 mg tablet RxNorm: 560423 1 Tablet(s) PO QD TAKE ONE TABLET BY MOUTH ONCE A DAY 10/04/2014 01/01/2015 Inactive Spiriva with HandiHaler 18 mcg & inhalation capsules RxNorm: 288599 1 Capsule(s) INH QD 10/03/2014 04/30/2015 Inactive Levaquin 500 mg tablet RxNorm: 903625 1 Tablet(s) PO QD 10/03/2014 Inactive prednisone 20 mg tablet RxNorm: 165126 1 Tablet(s) PO QD 10/03/2014 1 12/09/2013 Inactive Duragesic 100 mcg/hr transdermal patch RxNorm: 957920 2 Application TD Q48H for pain 09/18/2014 10/16/2014 Inactive Endocet 10 mg-325 mg tablet RxNorm: 1806408 1-2 Tablet(s) PO Q4H 10/16/2014 Inactive PRN PAIN Synthroid 112 mcg tablet RxNorm: 111770 1 Tablet(s) QD 09/10/2014 Inactive Synthroid 112 mcg tablet RxNorm: 874519 TAKE ONE TABLET BY MOUTH ONE TIME A DAY. NEEDS LABS 09/10/2014 02/06/2015 Inactive omeprazole 40 mg capsule,delayed release RxNorm: 075467 1 Capsu le(s) PO QD 09/03/2014 11/13/2014 Inactive omeprazole 40 mg capsule,delayed release RxNorm: 184618 1 Capsu le(s) PO QD 09/03/2014 09/02/2014 Inactive Spiriva with HandiHaler 18 mcg & inhalation capsules RxNorm: 405325 1 Capsule(s) INH QD 08/27/2014 10/02/2014 Inactive gabapentin 600 mg tablet RxNorm: 494712 1 Tablet(s) PO BID 08/27/20 14 10/22/2014 Inactive Endocet 10 mg-325 mg tablet RxNorm: 9494232 1-2 Tablet(s) PO Q4H 09/17/2014 Inactive PRN PAIN fentanyl 100 mcg/hr transdermal patch RxNorm: 596606 1 Unit Dos e TD QD 08/21/2014 09/19/2014 Inactive Daliresp 500 mcg tablet RxNorm: 4439043 1 Tablet(s) PO QD 08/13/2014 02/11/2015 Inactive Synthroid 112 mcg tablet RxNorm: 935009 TAKE ONE TABLET BY MOUTH ONE TIME A DAY. NEEDS LABS 08/10/2014 09/10/2014 Inactive Endocet 10 mg-325 mg tablet RxNorm: 3051782 1-2 Tablet(s) PO Q4H 08/17/2014 Inactive PRN PAIN Duragesic 100 mcg/hr transdermal patch RxNorm: 916953 2 Application TD Q48H for pain 07/19/2014 09/17/2014 Inactive fluoxetine 40 mg capsule RxNorm: 913233 1 Capsule(s) PO QD 07/17/20 14 01/14/2015 Inactive TAKE ONE CAPSULE BY MOUTH EV JANKI MORNING fluoxetine 20 mg capsule RxNorm: 686614 1 Capsule(s) PO QD 07/17/20 14 01/14/2015 Inactive Spiriva with HandiHaler 18 mcg & inhalation capsules RxNorm: 386131 1 Capsule(s) INH QD 07/17/2014 08/26/2014 Inactive INHALE CONTENTS OF 1 CAPSULE(S) WITH HANDIHALER ONCE DAILY Zofran 4 mg tablet RxNorm: 260905 1 Tablet(s) PO Q4H prn nausea 07/25/2014 Inactive Synthroid 112 mcg tablet RxNorm: 067251 1 Tablet(s) PO QD 07/09/2014 07/09/2014 Inactive methocarbamol 750 mg tablet RxNorm: 052720 2 Tablet(s) PO TID as needed for muscle spasm 07/09/2014 09/06/2014 Inactive Synthroid 112 mcg tablet RxNorm: 794919 1 Tablet(s) PO QD - nee d labs 07/09/2014 08/07/2014 Inactive Medrol (Aníbal) 4 mg tablets in a dose pack RxNorm: 306168 6 Tablet(s) PO QD --then as directed 07/03/2014 07/08/2014 Inactive Tudorza Pressair 400 mcg/actuation breath activated RxNorm: 8596118 1 Puff(s) INH BID 07/03/2014 12/17/2014 Inactive cefdinir 300 mg capsule RxNorm: 782090 1 Capsule(s) PO BID 07/03/20 14 07/12/2014 Inactive Topamax 100 mg tablet RxNorm: 884336 Tablet(s) TAKE ONE TABLET BY MOUTH AT BEDTIME 07/02/2014 02/25/2015 Inactive Duragesic 100 mcg/hr transdermal patch RxNorm: 394330 2 Application TD Q48H for pain 06/25/2014 07/18/2014 Inactive Endocet 10 mg-325 mg tablet RxNorm: 8273284 1-2 Tablet(s) PO Q4H 07/18/2014 Inactive PRN PAIN metformin ER 500 mg tablet,extended release 24 hr RxNorm: 86 0975 1 Tablet(s) PO QD Needs labs 06/18/2014 07/01/2014 Inactive take one tablet by mouth every day Duragesic 100 mcg/hr transdermal patch RxNorm: 970636 2 Application TD Q48H for pain 05/22/2014 06/24/2014 Inactive Synthroid 112 mcg tablet RxNorm: 443737 1 Tablet(s) PO QD 05/22/2014 07/09/2014 Inactive Endocet 10 mg-325 mg tablet RxNorm: 7556050 1-2 Tablet(s) PO Q4H 06/20/2014 Inactive PRN PAIN Endocet 10 mg-325 mg tablet RxNorm: 1287014 1-2 Tablet(s) PO Q4H 05/21/2014 Inactive PRN PAIN Duragesic 100 mcg/hr transdermal patch RxNorm: 140330 2 Application TD Q48H for pain 04/25/2014 05/21/2014 Inactive Daliresp 500 mcg tablet RxNorm: 6092174 1 Tablet(s) PO QD 04/24/2014 08/13/2014 Inactive Symbicort 160 mcg-4.5 mcg/actuation HFA aerosol inhaler RxNo rm: 8969764 2 Puff(s) INH BID 04/24/2014 08/21/2014 Inactive INHALE 2 PUFFS O RALLY TWO TIMES A DAY metformin ER 500 mg tablet,extended release 24 hr RxNorm: 86 0975 1 Tablet(s) PO QD 04/24/2014 11/12/2014 Inactive TAKE ONE TABLET BY MOUTH EVERY DAY [AttnRPh:Saving Apply/Adjudicate RxGRP:LDMGRP RxBIN:[id number] RxPCN:2012 PCode:01 ID#:[id number]] Symbicort 160 mcg-4.5 mcg/actuation HFA aerosol inhaler RxNo rm: 8664614 2 Puff(s) INH BID 04/24/2014 11/12/2014 Inactive INHALE 2 PUFFS O RALLY TWO TIMES A DAY Premarin 0.9 mg tablet RxNorm: 278927 1 Tablet(s) PO QD 04/24/2014 Inactive TAKE ONE TABLET BY MOUTH EVERY DAY metformin ER 500 mg tablet,extended release 24 hr RxNorm: 86 0975 1 Tablet(s) PO QD Needs labs 04/24/2014 06/18/2014 Inactive TAKE ONE TABLET BY MOUTH EVERY DAY [AttnRPh:Saving Apply/Adjudicate RxGRP:LDMGRP RxBIN:[id number] RxPCN:2012 PCode:01 ID#:[id number]] gabapentin 800 mg tablet RxNorm: 934907 1 Tablet(s) PO QD 04/24/2014 10/04/2014 Inactive TAKE ONE TABLET BY MOUTH EVERY DAY Topamax 100 mg tablet RxNorm: 693508 1 Tablet(s) PO QHS 04/17/2014 Inactive Topamax 100 mg tablet RxNorm: 431567 TAKE ONE TABLET BY MOUTH A T BEDTIME 04/17/2014 07/01/2014 Inactive Tudorza Pressair 400 mcg/actuation breath activated RxNorm: 7689299 1 Puff(s) INH BID 04/11/2014 07/02/2014 Inactive Duragesic 100 mcg/hr transdermal patch RxNorm: 877924 2 Application TD Q48H for pain 03/27/2014 04/24/2014 Inactive Endocet 10 mg-325 mg tablet RxNorm: 9991381 1-2 Tablet(s) PO Q4H 04/24/2014 Inactive PRN PAIN Robaxin 750 mg tablet RxNorm: 575141 2 Tablet(s) PO TID as need ed for spasm 02/23/2014 03/28/2015 Inactive Duragesic 100 mcg/hr transdermal patch RxNorm: 912126 2 Application TD Q48H for pain 02/23/2014 No Stop Date Active Endocet 10 mg-325 mg tablet RxNorm: 3928679 1-2 Tablet(s) PO Q4H 03/23/2014 Inactive PRN PAIN Synthroid 112 mcg tablet RxNorm: 173299 1 Tablet(s) PO QD TAKE ONE TABLET BY MOUTH EVERY DAY 02/15/2014 05/22/2014 Inactive Zithromax 500 mg tablet RxNorm: 741531 1 Tablet(s) PO QD 01/30/2014 0 02/05/2014 Inactive Diflucan 100 mg tablet RxNorm: 962480 1 Tablet(s) PO QD 01/30/2014 Inactive prednisone 20 mg tablet RxNorm: 496739 1 Tablet(s) PO BID 01/30/2014 02/05/2014 Inactive fluoxetine 40 mg capsule RxNorm: 901305 1 Capsule(s) PO QD 01/23/20 14 07/16/2014 Inactive TAKE ONE CAPSULE BY MOUTH EV JANKI MORNING fluoxetine 40 mg capsule RxNorm: 490051 1 Capsule(s) PO QD 01/23/20 14 07/17/2014 Inactive TAKE ONE CAPSULE BY MOUTH EV JANKI MORNING cefdinir 300 mg capsule RxNorm: 317698 1 Capsule(s) PO BID 01/16/20 14 01/29/2014 Inactive Zithromax 500 mg tablet RxNorm: 923833 1 Tablet(s) PO QD 01/16/2014 0 01/22/2014 Inactive prednisone 20 mg tablet RxNorm: 677479 1 Tablet(s) PO BID 01/16/2014 01/22/2014 Inactive Spiriva with HandiHaler 18 mcg and inhalation capsules RxNor m: 538090 1 Capsule(s) INH QD 12/18/2013 07/17/2014 Inactive INHALE CONTENT S OF 1 CAPSULE(S) WITH HANDIHALER ONCE DAILY fluoxetine 20 mg capsule RxNorm: 382146 1 Capsule(s) PO QD 12/18/19 14 06/15/2014 Inactive Spiriva with HandiHaler 18 mcg & inhalation capsules RxNorm: 087195 1 Capsule(s) INH QD 12/18/2013 06/15/2014 Inactive INHALE CONTENTS OF 1 CAPSULE(S) WITH HANDIHALER ONCE DAILY fluoxetine 20 mg capsule RxNorm: 713500 1 Capsule(s) PO QD 12/18/19 14 07/17/2014 Inactive cefdinir 300 mg capsule RxNorm: 392155 2 Capsule(s) PO QD 12/12/2013 12/21/2013 Inactive Duragesic 100 mcg/hr transdermal patch RxNorm: 913417 2 Application TD Q48H for pain 12/08/2013 12/07/2013 Inactive Topamax 100 mg tablet RxNorm: 336203 1 Tablet(s) PO QHS 12/04/2013 Inactive Endocet 10 mg-325 mg tablet RxNorm: 4134823 1-2 Tablet(s) PO Q4H 12/26/2013 Inactive PRN PAIN Robaxin 750 mg tablet RxNorm: 704746 2 Tablet(s) PO TID as need ed for spasm 11/07/2013 01/05/2014 Inactive gabapentin 800 mg tablet RxNorm: 196627 1 Tablet(s) PO QD 10/16/2013 04/24/2014 Inactive TAKE ONE TABLET BY MOUTH EVERY DAY Symbicort 160 mcg-4.5 mcg/actuation HFA aerosol inhaler RxNo rm: 3377532 2 Puff(s) INH BID 10/16/2013 04/24/2014 Inactive INHALE 2 PUFFS O RALLY TWO TIMES A DAY Premarin 0.9 mg tablet RxNorm: 320857 1 Tablet(s) PO QD 10/16/2013 Inactive TAKE ONE TABLET BY MOUTH EVERY DAY metformin ER 500 mg tablet,extended release 24 hr RxNorm: 86 0975 1 Tablet(s) PO QD 10/16/2013 04/24/2014 Inactive TAKE ONE TABLET BY MOUTH EVERY DAY Daliresp 500 mcg tablet RxNorm: 5247456 1 Tablet(s) PO QD 10/16/2013 04/24/2014 Inactive Robaxin 750 mg tablet RxNorm: 855697 2 Tablet(s) PO TID as need ed for spasm 10/10/2013 11/06/2013 Inactive Duragesic 100 mcg/hr transdermal patch RxNorm: 734424 2 Application TD Q48H for pain 10/09/2013 No Stop Date Active Soma 350 mg tablet RxNorm: 632011 1 Tablet(s) PO TID 09/27/201310/09 Inactive TAKE ONE TABLET BY MOUTH THREE TIMES A D AY lactulose 10 gram/15 mL oral solution RxNorm: 160707 [address](s) PO QD 09/13/2013 03/07/2015 Inactive TAKE 1 TABLESPOON BY MOUTH ONCE DAILY Duragesic 100 mcg/hr transdermal patch RxNorm: 243439 2 Application TD Q48H for pain 09/06/2013 No Stop Date Active Endocet 10 mg-325 mg tablet RxNorm: 9930658 1-2 Tablet(s) PO Q4H 09/27/2013 Inactive PRN PAIN lancets 28 gauge RxNorm: Miscellaneous As needed for blo od glucose sticks 08/24/2013 No Stop Date Active 16.2 mg-0.1037 mg-0.0194 mg tablet RxNorm: 4209900 Tablet(s) PO PRN for gas and cramping 08/24/2013 01/19/2017 Inactive TAKE TWO TABLET S BY MOUTH THREE TIMES A DAY NEEDED FOR GAS AND CRAMPING Topamax 100 mg tablet RxNorm: 848458 1 Tablet(s) PO QHS 07/31/2013 Inactive Diflucan 100 mg tablet RxNorm: 245093 1 Tablet(s) PO QD 07/27/2013 Inactive cefdinir 300 mg capsule RxNorm: 928852 1 Capsule(s) PO BID 07/26/20 13 08/08/2013 Inactive Daliresp 500 mcg tablet RxNorm: 1553587 1 Tablet(s) PO QD 07/25/2013 10/15/2013 Inactive fluoxetine 40 mg capsule RxNorm: 955582 1 Capsule(s) PO QD 07/25/20 13 01/22/2014 Inactive TAKE ONE CAPSULE BY MOUTH EV JANKI MORNING Senokot-S 8.6 mg-50 mg tablet RxNorm: 3518951 1 Tablet(s) PO BID 10/25/2013 Inactive doxycycline hyclate 100 mg capsule RxNorm: 3148330 1 Capsule(s) PO BID 06/28/2013 07/07/2013 Inactive prednisone 20 mg tablet RxNorm: 164895 1 Tablet(s) PO BID 06/28/2013 07/04/2013 Inactive Zofran 4 mg tablet RxNorm: 471717 1 Tablet(s) PO Q4H prn nausea 03/201307/05/2013 Inactive Spiriva with HandiHaler 18 mcg & inhalation capsules RxNorm: 961063 1 Capsule(s) INH QD 06/26/2013 12/18/2013 Inactive INHALE CONTENTS OF 1 CAPSULE(S) WITH HANDIHALER ONCE DAILY Synthroid 112 mcg tablet RxNorm: 207791 1 Tablet(s) PO QD TAKE ONE TABLET BY MOUTH EVERY DAY 06/19/2013 02/15/2014 Inactive fluoxetine 20 mg capsule RxNorm: 071148 1 Capsule(s) PO QD 06/19/20 13 12/18/2013 Inactive Ventolin HFA 90 mcg/actuation Aerosol Inhaler RxNorm: 6040149 2 Puff(s) INH Q4H 06/05/2013 No Stop Date Active prn Soma 350 mg tablet RxNorm: 341330 1 Tablet(s) PO TID 06/05/201307/04 Inactive TAKE ONE TABLET BY MOUTH THREE TIMES A D AY prednisone 20 mg tablet RxNorm: 067779 1 Tablet(s) PO QD 05/31/2013 0 06/06/2013 Inactive Topamax 100 mg tablet RxNorm: 955633 1 Tablet(s) PO QHS 05/22/2013 Inactive Levaquin 500 mg tablet RxNorm: 325488 1 Tablet(s) PO QD 05/03/2013 Inactive Diflucan 100 mg tablet RxNorm: 406505 1 Tablet(s) PO QD 05/03/2013 Inactive Daliresp 500 mcg tablet RxNorm: 9067962 1 Tablet(s) PO QD 05/01/2013 07/24/2013 Inactive Daliresp 500 mcg tablet RxNorm: 6567572 1 Tablet(s) PO QD 05/01/2013 04/30/2013 Inactive gabapentin 800 mg tablet RxNorm: 999080 1 Tablet(s) PO QD 04/10/2013 10/06/2013 Inactive TAKE ONE TABLET BY MOUTH EVERY DAY metformin ER 500 mg tablet,extended release 24 hr RxNorm: 86 0977 1 Tablet(s) PO QD 04/10/2013 10/06/2013 Inactive TAKE ONE TABLET BY MOUTH EVERY DAY Premarin 0.9 mg tablet RxNorm: 131115 1 Tablet(s) PO QD 04/10/2013 Inactive TAKE ONE TABLET BY MOUTH EVERY DAY Symbicort 160 mcg-4.5 mcg/actuation HFA aerosol inhaler RxNo rm: 1338830 2 Puff(s) INH BID 04/10/2013 10/06/2013 Inactive INHALE 2 PUFFS O RALLY TWO TIMES A DAY Synthroid 112 mcg tablet RxNorm: 183363 1 Tablet(s) PO QD TAKE ONE TABLET BY MOUTH EVERY DAY 04/10/2013 06/18/2013 Inactive Ventolin HFA 90 mcg/actuation Aerosol Inhaler RxNorm: 383079 2 Puff(s) INH Q4H 04/10/2013 No Stop Date Active prn fentanyl 100 mcg/hr transdermal patch RxNorm: 972528 1 Unit Dos e TD QD 04/03/2013 05/02/2013 Inactive Endocet 10 mg-325 mg tablet RxNorm: 7898727 1-2 Tablet(s) PO Q4H 05/02/2013 Inactive PRN PAIN Topamax 100 mg tablet RxNorm: 316890 1 Tablet(s) PO QHS 03/13/2013 Inactive Reglan 10 mg tablet RxNorm: 598421 1 Tablet(s) PO QID b efore meals and at bedtime 03/13/2013 04/09/2015 Inactive fluoxetine 20 mg capsule RxNorm: 499634 1 Capsule(s) PO QD 02/28/20 13 05/27/2013 Inactive Ventolin HFA 90 mcg/actuation Aerosol Inhaler RxNorm: 003271 2 Puff(s) INH Q4H 02/13/2013 No Stop Date Active prn fluoxetine 40 mg capsule RxNorm: 394612 1 Capsule(s) PO QD 01/31/20 13 07/24/2013 Inactive TAKE ONE CAPSULE BY MOUTH EV JANKI MORNING Soma 350 mg tablet RxNorm: 741779 1 Tablet(s) PO TID 01/20/201302/18 Inactive TAKE ONE TABLET BY MOUTH THREE TIMES A D AY Endocet 10 mg-325 mg tablet RxNorm: 3517441 1-2 Tablet(s) PO Q4H 02/06/2013 Inactive PRN PAIN MS Contin 200 mg tablet,extended release RxNorm: 579126 1 Table t(s) PO BID 01/18/2013 02/06/2013 Inactive Ventolin HFA 90 mcg/actuation Aerosol Inhaler RxNorm: 467208 2 Puff(s) INH Q4H 01/04/2013 No Stop Date Active prn Spiriva with HandiHaler 18 mcg & inhalation capsules RxNorm: 156157 1 Capsule(s) INH QD 12/29/2012 06/25/2013 Inactive INHALE CONTENTS OF 1 CAPSULE(S) WITH HANDIHALER ONCE DAILY Spiriva with HandiHaler 18 mcg & inhalation capsules RxNorm: 216861 1 Capsule(s) INH QD 12/26/2012 12/28/2012 Inactive INHALE CONTENTS OF 1 CAPSULE(S) WITH HANDIHALER ONCE DAILY Synthroid 112 mcg tablet RxNorm: 897165 Tablet(s) PO TA KE ONE TABLET BY MOUTH EVERY DAY 12/26/2012 04/09/2013 Inactive Endocet 10 mg-325 mg tablet RxNorm: 7115608 1-2 Tablet(s) PO Q4H 01/17/2013 Inactive PRN PAIN MS Contin 200 mg tablet,extended release RxNorm: 974789 1 Table t(s) PO BID 12/21/2012 01/17/2013 Inactive fluoxetine 20 mg capsule RxNorm: 557061 1 Capsule(s) PO QD 12/06/19 13 02/26/2013 Inactive Synthroid 112 mcg tablet RxNorm: 061802 1 Tablet(s) PO QD 12/06/2012 02/12/2019 Inactive TAKE ONE TABLET BY MOUTH EVERY DAY Ventolin HFA 90 mcg/actuation Aerosol Inhaler RxNorm: 749289 2 Puff(s) INH Q4H 12/06/2012 No Stop Date Active prn Reglan 10 mg tablet RxNorm: 394656 1 Tablet(s) PO QID b efore meals and at bedtime 11/24/2012 03/12/2013 Inactive Topamax 100 mg tablet RxNorm: 486686 1 Tablet(s) PO QHS 11/16/2012 Inactive Ventolin HFA 90 mcg/actuation Aerosol Inhaler RxNorm: 082612 2 Puff(s) INH Q4H 11/09/2012 No Stop Date Active prn gabapentin 800 mg tablet RxNorm: 268915 1 Tablet(s) PO QD 10/27/2012 04/09/2013 Inactive TAKE ONE TABLET BY MOUTH EVERY DAY metformin ER 500 mg tablet,extended release 24 hr RxNorm: 86 0977 1 Tablet(s) PO QD 10/27/2012 04/09/2013 Inactive TAKE ONE TABLET BY MOUTH EVERY DAY Symbicort 160 mcg-4.5 mcg/actuation HFA Aerosol Inhaler RxNo rm: 9159742 2 Puff(s) INH BID 10/27/2012 04/09/2013 Inactive INHALE 2 PUFFS O RALLY TWO TIMES A DAY Premarin 0.9 mg tablet RxNorm: 599817 1 Tablet(s) PO QD 10/27/2012 Inactive TAKE ONE TABLET BY MOUTH EVERY DAY Endocet 10 mg-325 mg tablet RxNorm: 9989963 1-2 Tablet(s) PO Q4H 11/24/2012 Inactive PRN PAIN MS Contin 200 mg tablet,extended release RxNorm: 162379 1 Table t(s) PO BID 10/26/2012 11/24/2012 Inactive Soma 350 mg tablet RxNorm: 514012 1 Tablet(s) PO TID 10/04/201211/02 Inactive TAKE ONE TABLET BY MOUTH THREE TIMES A D AY Ventolin HFA 90 mcg/actuation Aerosol Inhaler RxNorm: 497812 2 Puff(s) INH Q4H 10/03/2012 No Stop Date Active prn Daliresp 500 mcg tablet RxNorm: 4293628 1 Tablet(s) PO QD 09/28/2012 09/27/2012 Inactive Daliresp 500 mcg tablet RxNorm: 6367329 1 Tablet(s) PO QD 09/28/2012 04/25/2013 Inactive fluoxetine 20 mg capsule RxNorm: 576827 1 Capsule(s) PO QD 09/05/2012/06/2012 Inactive Topamax 50 mg tablet RxNorm: 812041 Tablet(s) PO for 1w k then 1 po q HS for 1wk then 2 po q HS 08/29/2012 09/27/2012 Inactive TAKE 1/2 TABLET BY MOUTH AT BEDTIME FOR 1 WEEK, THEN 1 TABLET AT BEDTIME FOR 1 WEEK, THEN 2 TABLETS AT BEDTIME Topamax 100 mg tablet RxNorm: 838344 1 Tablet(s) PO QHS 08/29/2012 Inactive Ventolin HFA 90 mcg/actuation Aerosol Inhaler RxNorm: 426910 2 Puff(s) INH Q4H 08/19/2012 No Stop Date Active prn Ventolin HFA 90 mcg/actuation Aerosol Inhaler RxNorm: 254187 2 Puff(s) INH Q4H 08/15/2012 No Stop Date Active prn Synthroid 112 mcg tablet RxNorm: 166395 1 Tablet(s) PO QD 08/10/2012 11/07/2012 Inactive TAKE ONE TABLET BY MOUTH EVERY DAY Synthroid 112 mcg tablet RxNorm: 791327 1 Tablet(s) PO QD 08/01/2012 08/09/2012 Inactive TAKE ONE TABLET BY MOUTH EVERY DAY Reglan 10 mg tablet RxNorm: 556647 1 Tablet(s) PO QID b efore meals and at bedtime 08/01/2012 11/23/2012 Inactive fluoxetine 40 mg capsule RxNorm: 218687 1 Capsule(s) PO QD 08/01/2001/27/2013 Inactive TAKE ONE CAPSULE BY MOUTH EV JANKI MORNING Ventolin HFA 90 mcg/actuation Aerosol Inhaler RxNorm: 266622 2 Puff(s) INH Q4H 08/01/2012 No Stop Date Active prn Soma 350 mg tablet RxNorm: 311475 1 Tablet(s) PO TID 07/20/201208/18 Inactive TAKE ONE TABLET BY MOUTH THREE TIMES A D AY Spiriva with HandiHaler 18 mcg & inhalation capsules RxNorm: 889385 1 Capsule(s) INH 07/01/2012 12/25/2012 Inactive INHALE CONTENTS OF 1 CAPSULE(S) WITH HANDIHALER ONCE DAILY Zithromax 250 mg Tab RxNorm: 724502 2 Tablet(s) PO QD 06/28/201206/22 Inactive MS Contin 200 mg tablet,extended release RxNorm: 501031 1 Table t(s) PO BID 06/28/2012 07/27/2012 Inactive Endocet 10 mg-325 mg tablet RxNorm: 4079154 1-2 Tablet(s) PO Q4H 07/27/2012 Inactive PRN PAIN Topamax 100 mg tablet RxNorm: 323831 1 Tablet(s) PO QHS 06/28/2012 Inactive 16.2 mg-0.1037 mg-0.0194 mg tablet RxNorm: 3758321 Tablet(s) PO PRN for gas and cramping 06/08/2012 08/23/2013 Inactive TAKE TWO TABLET S BY MOUTH THREE TIMES A DAY NEEDED FOR GAS AND CRAMPING Ventolin HFA 90 mcg/actuation Aerosol Inhaler RxNorm: 650272 2 Puff(s) INH Q4H 05/23/2012 No Stop Date Active prn Ventolin HFA 90 mcg/actuation Aerosol Inhaler RxNorm: 642145 2 Puff(s) INH Q4H 05/11/2012 No Stop Date Active prn Synthroid 112 mcg tablet RxNorm: 526544 1 Tablet(s) PO QD 05/09/2012 07/31/2012 Inactive TAKE ONE TABLET BY MOUTH EVERY DAY gabapentin 800 mg tablet RxNorm: 706590 1 Tablet(s) PO QD 05/09/2012 10/26/2012 Inactive TAKE ONE TABLET BY MOUTH EVERY DAY fluoxetine 40 mg capsule RxNorm: 358834 1 Capsule(s) PO QD 05/09/2007/31/2012 Inactive TAKE ONE CAPSULE BY MOUTH EV JANKI MORNING metformin ER 500 mg tablet,extended release 24 hr RxNorm: 86 0977 1 Tablet(s) PO QD 05/09/2012 10/26/2012 Inactive TAKE ONE TABLET BY MOUTH EVERY DAY Premarin 0.9 mg tablet RxNorm: 653065 1 Tablet(s) PO QD 05/09/2012 Inactive TAKE ONE TABLET BY MOUTH EVERY DAY Symbicort 160 mcg-4.5 mcg/actuation HFA Aerosol Inhaler RxNo rm: 5410039 2 Puff(s) INH BID 05/09/2012 10/26/2012 Inactive INHALE 2 PUFFS O RALLY TWO TIMES A DAY Endocet 10 mg-325 mg Tab RxNorm: 6626591 1-2 Tablet(s) PO Q4H 04/2705/26/2012 Inactive PRN PAIN MS Contin 200 mg Tab RxNorm: 307579 1 Tablet(s) PO BID 04/26/201202/2012 Inactive Ventolin HFA 90 mcg/actuation Aerosol Inhaler RxNorm: 227101 2 Puff(s) INH Q4H 04/25/2012 05/10/2012 Inactive prn Soma 350 mg tablet RxNorm: 637176 2 Tablet(s) PO TID 04/19/201207/19 Inactive TAKE ONE TABLET BY MOUTH THREE TIMES A D AY Ventolin HFA 90 mcg/actuation Aerosol Inhaler RxNorm: 136888 2 Puff(s) INH Q4H 04/12/2012 04/24/2012 Inactive prn Reglan 10 mg tablet RxNorm: 655679 1 Tablet(s) PO QID b efore meals and at bedtime 04/11/2012 07/31/2012 Inactive MS Contin 200 mg Tab RxNorm: 892167 1 Tablet(s) PO BID 03/30/201202/2012 Inactive Endocet 10 mg-325 mg Tab RxNorm: 5366018 1-2 Tablet(s) PO Q4H 03/3004/26/2012 Inactive PRN PAIN MS Contin 200 mg Tab RxNorm: 087677 1 Tablet(s) PO BID 03/02/201206/2012 Inactive Endocet 10 mg-325 mg Tab RxNorm: 3215746 1-2 Tablet(s) PO Q4H 03/0203/29/2012 Inactive PRN PAIN Daliresp 500 mcg tablet RxNorm: 5314503 1 Tablet(s) PO QD 03/01/2012 09/28/2012 Inactive MS Contin 200 mg Tab RxNorm: 271682 1 Tablet(s) PO BID 02/02/201208/2012 Inactive Endocet 10 mg-325 mg Tab RxNorm: 5827488 1-2 Tablet(s) PO Q4H 02/0103/01/2012 Inactive PRN PAIN fluoxetine 40 mg capsule RxNorm: 157014 1 Capsule(s) PO QD 02/02/2008/01/2012 Inactive TAKE ONE CAPSULE BY MOUTH EV JANKI MORNING Synthroid 112 mcg Tab RxNorm: 171201 1 Tablet(s) PO QD 01/18/2012 Inactive TAKE ONE TABLET BY MOUTH EVERY DAY lactulose 10 gram/15 mL oral solution RxNorm: 914137 [address]s) PO QD 01/18/2012 No Stop Date Active TAKE 1 TABLESPOON BY MOUTH ONCE DAILY Ventolin HFA 90 mcg/actuation Aerosol Inhaler RxNorm: 014506 2 Puff(s) INH Q4H 01/18/2012 04/11/2012 Inactive prn MS Contin 200 mg Tab RxNorm: 329906 1 Tablet(s) PO BID 01/05/201210/2012 Inactive Endocet 10 mg-325 mg Tab RxNorm: 9900956 1-2 Tablet(s) PO Q4H 01/0502/01/2012 Inactive PRN PAIN ProAir HFA 90 mcg/Actuation Aerosol Inhaler RxNorm: 094499 2 Pu ff(s) INH Q4H 12/21/2011 No Stop Date Active prn for wheezing or shortness of breath Spiriva with HandiHaler 18 mcg & inhalation Caps RxNorm: 580 261 1 Capsule(s) INH 12/21/2011 06/30/2012 Inactive INHALE CONTENTS OF 1 CAPSULE(S) WITH HANDIHALER ONCE DAILY Reglan 10 mg Tab RxNorm: 171400 1 Tablet(s) PO QID before meals and at bedtime 12/21/2011 04/10/2012 Inactive Synthroid 112 mcg Tab RxNorm: 241235 1 Tablet(s) PO QD 12/21/2011 Inactive TAKE ONE TABLET BY MOUTH EVERY DAY Endocet 10 mg-325 mg Tab RxNorm: 9433820 1-2 Tablet(s) PO Q4H 11/2512/24/2011 Inactive PRN PAIN MS Contin 200 mg Tab RxNorm: 899146 1 Tablet(s) PO BID 11/25/201112/2011 Inactive lactulose 10 gram/15 mL Oral Soln RxNorm: 543791 Milliliter(s) PO 1 No Stop Date Active TAKE 1 TABLESPOON BY MOUTH O NCE DAILY lactulose 10 gram/15 mL Oral Soln RxNorm: 676514 Milliliter(s) PO 1 12/12/2010 11/20/2011 Inactive TAKE 1 TABLESPOON BY MOUTH O NCE DAILY Premarin 0.9 mg Tab RxNorm: 466733 1 Tablet(s) PO QD 10/12/201105/08 Inactive TAKE ONE TABLET BY MOUTH EVERY DAY fluoxetine 20 mg capsule RxNorm: 095970 1 Capsule(s) PO QD 10/12/20 11 09/05/2012 Inactive TAKE ONE CAPSULE BY MOUTH EV JANKI DAY Synthroid 112 mcg Tab RxNorm: 609486 1 Tablet(s) PO QD 10/12/2011 Inactive TAKE ONE TABLET BY MOUTH EVERY DAY metformin ER 500 mg 24 hr Tab RxNorm: 074243 1 Tablet(s) PO QD 09/2311/10/2011 Inactive TAKE ONE TABLET BY MOUTH GLYNN RY DAY Synthroid 112 mcg Tab RxNorm: 188306 1 Tablet(s) PO QD 10/12/2011 Inactive TAKE ONE TABLET BY MOUTH EVERY DAY metformin ER 500 mg 24 hr Tab RxNorm: 972049 1 Tablet(s) PO QD 09/2310/11/2011 Inactive TAKE ONE TABLET BY MOUTH GLYNN RY DAY Prevacid 30 mg Cap RxNorm: 550475 Capsule(s) PO 10/12/2011 01/25/2012 Inactive TAKE ONE CAPSULE BY MOUTH EVERY DAY Symbicort 160 mcg-4.5 mcg/actuation HFA Aerosol Inhaler RxNo rm: 5218910 2 Puff(s) INH BID 10/12/2011 05/08/2012 Inactive INHALE 2 PUFFS O RALLY TWO TIMES A DAY gabapentin 800 mg Tab RxNorm: 205632 1 Tablet(s) PO QD 10/12/2011 Inactive TAKE ONE TABLET BY MOUTH EVERY DAY MS Contin 200 mg Tab RxNorm: 832713 1 Tablet(s) PO BID 09/23/201111/2010 Inactive Endocet 10 mg-325 mg Tab RxNorm: 6668817 1-2 Tablet(s) PO Q4H 09/2310/22/2011 Inactive PRN PAIN Endocet 10 mg-325 mg Tab RxNorm: 8740404 1-2 Tablet(s) PO Q4H 08/2109/19/2011 Inactive PRN PAIN MS Contin 200 mg Tab RxNorm: 990964 1 Tablet(s) PO BID 08/21/2011 Inactive Diflucan 100 mg Tab RxNorm: 852353 1 Tablet(s) PO QD 08/10/201108/16 Inactive cefdinir 300 mg Cap RxNorm: 856409 2 Capsule(s) PO QD 08/10/201107/24 Inactive Reglan 10 mg Tab RxNorm: 711124 1 Tablet(s) PO AC & HS 07/15/2011 Inactive Endocet 10 mg-325 mg Tab RxNorm: 7270669 1-2 Tablet(s) PO Q4H 07/1508/13/2011 Inactive PRN PAIN One Touch Ultra Test strips RxNorm: Miscellaneous BID 06/11/2011 1 01/16/2014 Inactive TEST TWO TIMES A DAY lactulose 10 gram/15 mL Oral Soln RxNorm: 842163 Milliliter(s) PO 0 06/10/2011 10/11/2011 Inactive TAKE 1 TABLESPOON BY MOUTH O NCE DAILY Chantix Continuing Month Aníbal 1 mg Tab RxNorm: 667705 Tablet(s) PO 0 06/10/2011 11/02/2011 Inactive TAKE DIRECTED - PER PACK[employer] GE INSTRUCTIONS fluoxetine 40 mg Cap RxNorm: 602048 Capsule(s) PO 06/10/2011 02/02/20 12 Inactive TAKE ONE CAPSULE BY MOUTH EVERY MORNING Chantix Continuing Month Aníbal 1 mg Tab RxNorm: 183639 Ta blet(s) PO TAKE DIRECTED - PER PACKAGE INSTRUCTIONS 05/13/2011 06/09/2011 Inactive Soma 350 mg Tab RxNorm: 837498 Tablet(s) PO TAKE ON E TABLET BY MOUTH THREE TIMES A DAY 05/13/2011 04/18/2012 Inactive Chantix Continuing Month Aníbal 1 mg Tab RxNorm: 571917 Ta blet(s) PO as directed per package instructions. 04/22/2011 05/12/2011 Inactive Symbicort 160 mcg-4.5 mcg/Actuation HFA Aerosol Inhaler RxNo rm: 2374694 HFA Aerosol Inhaler INH INHALE 2 PUFFS ORALLY TWO TIMES A DAY 04/13/2011 Inactive Synthroid 112 mcg Tab RxNorm: 323115 Tablet(s) PO TAKE ONE TABLET BY MOUTH EVERY DAY 04/13/2011 10/12/2011 Inactive Premarin 0.9 mg Tab RxNorm: 497547 Tablet(s) PO TAKE ON E TABLET BY MOUTH EVERY DAY 04/13/2011 10/12/2011 Inactive gabapentin 800 mg Tab RxNorm: 278196 Tablet(s) PO TAKE ONE TABLET BY MOUTH EVERY DAY 04/13/2011 10/12/2011 Inactive Prevacid 30 mg Cap RxNorm: 983221 1 Capsule(s) PO QD 04/13/201110/11 Inactive Spiriva with HandiHaler 18 mcg & inhalation Caps RxNorm: 580 261 Capsule(s) INH INHALE CONTENTS OF 1 CAPSULE(S) WITH HANDIHALER ONCE DAILY 04/13/2011 12/21/2011 Inactive metformin ER 500 mg 24 hr Tab RxNorm: 673796 Tablet(s) PO TAKE ONE TABLET BY MOUTH EVERY DAY 04/13/2011 10/12/2011 Inactive Soma 350 mg Tab RxNorm: 933666 1 Tablet(s) PO QID 03/30/2011 02/13/20 19 Inactive fluoxetine 20 mg Cap RxNorm: 399482 Capsule(s) PO TAKE ONE CAPSULE BY MOUTH EVERY DAY 03/25/2011 10/12/2011 Inactive cefdinir 300 mg Cap RxNorm: 226572 2 Capsule(s) PO QD 03/19/201105/2011 Inactive 16.2 mg-0.1037 mg-0.0194 mg Tab RxNorm: 2924274 2 Tablet(s) PO TID PRN for gas and cramping 03/16/2011 07/13/2011 Inactive Soma 350 mg Tab RxNorm: 517217 2 Tablet(s) PO TID 03/16/2011 03/29/20 11 Inactive Chantix Starting Month Aníbal 0.5 mg (11)-1 mg (3x14) Tab s in a Dose Pack RxNorm: 555127 Tablet(s) PO as directed 03/02/2011 No Stop Date Active diazepam 10 mg Tab RxNorm: 411218 1 Tablet(s) PO BID 02/10/201101/19 Inactive Zofran 4 mg tablet RxNorm: 104658 1 Tablet(s) PO Q4H prn nausea 02/16/2011 Inactive Diflucan 100 mg Tab RxNorm: 051189 1 Tablet(s) PO QD 01/18/201101/24 Inactive Premarin 0.625 mg/g Vaginal Cream RxNorm: 105020 VAG In sert 1gm vaginally at bedtime 3 times weekly 01/18/2011 02/12/2019 Inactive loratadine 10 mg Tab RxNorm: 1755316 1 Tablet(s) PO QD 12/17/201003/2012 Inactive Spiriva with HandiHaler 18 mcg & inhalation Caps RxNorm: 580 261 1 Capsule(s) INH QD 12/17/2010 04/12/2011 Inactive Diflucan 100 mg Tab RxNorm: 518076 1 Tablet(s) PO QD 12/17/201012/23 Inactive diazepam 10 mg Tab RxNorm: 032963 1 Tablet(s) PO BID and PRN 201002/12/2019 Inactive One Touch Ultra Test Strips RxNorm: InVt BID Zainab t blood sugar at least twice daily. 11/11/2010 06/11/2011 Inactive fluoxetine 40 mg Cap RxNorm: 496847 1 Capsule(s) PO QAM 11/11/2010 Inactive diazepam 10 mg Tab RxNorm: 510244 1 Tablet(s) PO BID and PRN 200911/12/2010 Inactive Bactrim DS 800 mg-160 mg Tab RxNorm: 307591 1 Tablet(s) PO BID 09/2210/15/2010 Inactive fluoxetine 20 mg Cap RxNorm: 823725 1 Capsule(s) PO QD 10/02/201008/2011 Inactive Bactrim DS 800 mg-160 mg Tab RxNorm: 386757 1 Tablet(s) PO BID 01/201010/03/2010 Inactive Zofran 4 mg Tab RxNorm: 081515 1 Tablet(s) PO Q4H prn nausea 200910/16/2010 Inactive 16.2 mg-0.1037 mg-0.0194 mg Tab RxNorm: 7123605 2 Tablet(s) PO TID PRN for gas and cramping 09/17/2010 10/21/2010 Inactive Gabapentin 800 mg Tab RxNorm: 288812 1 Tablet(s) PO QD 09/16/2010 Inactive ProAir HFA 90 mcg/Actuation Aerosol Inhaler RxNorm: 731450 2 Puff(s) INH Q4H prn shortness of breath 09/15/2010 12/13/2010 Inactive gabapentin 800 mg Tab RxNorm: 338137 1 Tablet(s) PO QD 09/15/2010 Inactive Prevacid 30 mg Cap RxNorm: 034559 1 Capsule(s) PO QD 09/15/201004/12 Inactive loratadine 10 mg Tab RxNorm: 4694421 1 Tablet(s) PO QD 09/15/2010 Inactive Premarin 0.9 mg Tab RxNorm: 258971 1 Tablet(s) PO QD 09/15/201004/12 Inactive Synthroid 112 mcg Tab RxNorm: 432508 1 Tablet(s) PO QD 09/15/2010 Inactive metformin ER 500 mg 24 hr Tab RxNorm: 186057 1 Tablet(s) PO QD 08/2304/12/2011 Inactive Symbicort 160 mcg-4.5 mcg/Actuation Inhalation HFA Aer osol Inhaler RxNorm: 6128239 2 Puff(s) INH BID 09/15/2010 04/12/2011 Inactive diazepam 10 mg Tab RxNorm: 836374 1 Tablet(s) PO BID and PRN 200910/13/2010 Inactive Phentermine 37.5 mg Cap RxNorm: 467094 1 Capsule(s) PO QD 09/02/2010 11/02/2011 Inactive ProAir HFA 90 mcg/Actuation Aerosol Inhaler RxNorm: 114780 2 Puff(s) INH Q4H prn shortness of breath 08/07/2010 No Stop Date Active Premarin 0.9 mg Tab RxNorm: 769057 1 Tablet(s) PO QD 08/07/201009/14 Inactive Loratadine 10 mg Tab RxNorm: 6325983 1 Tablet(s) PO QD 08/07/2010 Inactive Lactulose 10 gram/15 mL Oral Soln RxNorm: 460842 1 Unit Dose PO QD 08/07/2010 02/12/2019 Inactive Zofran 4 mg Tab RxNorm: 426684 1 Tablet(s) PO Q4H prn nausea 2009 No Stop Date Active Gabapentin 800 mg Tab RxNorm: 703691 1 Tablet(s) PO QD 08/07/2010 Inactive Synthroid 112 mcg Tab RxNorm: 854970 1 Tablet(s) PO QD 08/07/2010 Inactive Metformin ER 500 mg 24 hr Tab RxNorm: 849806 1 Tablet(s) PO QD 07/2309/14/2010 Inactive Vitamin D 1,000 unit Tab RxNorm: 952671 1 Tablet(s) PO TID 08/07/2002/12/2019 Inactive Symbicort 160 mcg-4.5 mcg/Actuation Inhalation HFA Aer osol Inhaler RxNorm: 2042873 2 Puff(s) INH BID 08/07/2010 09/14/2010 Inactive Prevacid 30 mg Cap RxNorm: 550760 1 Capsule(s) PO QD 08/07/201009/14 Inactive Metformin ER 500 mg 24 hr Tab RxNorm: 166785 1 Tablet(s) PO QD 06/2308/06/2010 Inactive Vitamin D 1,000 unit Tab RxNorm: 116838 1 Tablet(s) PO TID 07/14/2008/06/2010 Inactive Synthroid 112 mcg Tab RxNorm: 836162 1 Tablet(s) PO QD 07/14/2010 Inactive Lactulose 10 gram/15 mL Oral Soln RxNorm: 006813 1 Unit Dose PO QD 07/14/2010 08/06/2010 Inactive Levaquin 500 mg Tab RxNorm: 614158 1 Tablet(s) PO QD 07/14/201007/27 Inactive Premarin 0.9 mg Tab RxNorm: 026871 1 Tablet(s) PO QD 07/14/201008/06 Inactive ProAir HFA 90 mcg/Actuation Aerosol Inhaler RxNorm: 569187 2 Puff(s) INH Q4H prn shortness of breath 07/14/2010 No Stop Date Active Prevacid 30 mg Cap RxNorm: 124170 1 Capsule(s) PO QD 07/14/201008/06 Inactive Zofran 4 mg Tab RxNorm: 188428 1 Tablet(s) PO Q4H prn nausea 2009 No Stop Date Active Symbicort 160 mcg-4.5 mcg/Actuation Inhalation HFA Aer osol Inhaler RxNorm: 8141281 2 Puff(s) INH BID 07/14/2010 08/06/2010 Inactive Loratadine 10 mg Tab RxNorm: 5541664 1 Tablet(s) PO QD 07/14/2010 Inactive Gabapentin 800 mg Tab RxNorm: 846141 1 Tablet(s) PO QD 07/14/2010 Inactive Metformin ER 500 mg 24 hr Tab RxNorm: 792706 1 Tablet(s) PO 010 07/13/2010 Inactive Diazepam 10 mg Tab RxNorm: 281332 1 Tablet(s) PO BID and PRN 200909/06/2010 Inactive Premarin 0.9 mg Tab RxNorm: 461093 1 Tablet(s) PO QD 06/09/201007/13 Inactive Zofran 4 mg Tab RxNorm: 485048 1 Tablet(s) PO Q4H prn nausea 2009 No Stop Date Active ProAir HFA 90 mcg/Actuation Aerosol Inhaler RxNorm: 682447 2 Puff(s) INH Q4H prn shortness of breath 06/09/2010 No Stop Date Active Gabapentin 800 mg Tab RxNorm: 036104 1 Tablet(s) PO QD 06/09/2010 Inactive Loratadine 10 mg Tab RxNorm: 8069123 1 Tablet(s) PO QD 06/09/2010 Inactive Lactulose 10 gram/15 mL Oral Soln RxNorm: 032168 1 Unit Dose PO QD 06/09/2010 07/13/2010 Inactive Prevacid 30 mg Cap RxNorm: 123323 1 Capsule(s) PO QD 06/09/201007/13 Inactive Synthroid 112 mcg Tab RxNorm: 554361 1 Tablet(s) PO QD 06/09/2010 Inactive Symbicort 160 mcg-4.5 mcg/Actuation Inhalation HFA Aer osol Inhaler RxNorm: 8671193 2 Puff(s) INH BID 06/09/2010 07/13/2010 Inactive Omnicef 300 mg Cap RxNorm: 736924 2 Capsule(s) PO QD 05/07/201005/20 Inactive Metformin 500 mg Tab RxNorm: 157974 1 Tablet(s) PO QD 05/06/201005/22 Inactive ProAir HFA 90 mcg/Actuation Aerosol Inhaler RxNorm: 547909 2 Puff(s) INH Q4H prn shortness of breath 05/06/2010 No Stop Date Active lactulose 10 gram/15 mL Oral Soln RxNorm: 545982 1 Unit Dose PO QD 05/06/2010 06/10/2011 Inactive Loratadine 10 mg Tab RxNorm: 5329676 1 Tablet(s) PO QD 05/06/2010 Inactive Synthroid 112 mcg Tab RxNorm: 833113 1 Tablet(s) PO QD 05/06/2010 Inactive Symbicort 160 mcg-4.5 mcg/Actuation Inhalation HFA Aer osol Inhaler RxNorm: 8362017 2 Puff(s) INH BID 05/06/2010 06/08/2010 Inactive Gabapentin 800 mg Tab RxNorm: 739121 1 Tablet(s) PO QD 05/06/2010 Inactive 16.2 mg-0.1037 mg-0.0194 mg Tab RxNorm: 8115407 2 Tablet(s) PO TID PRN for gas and cramping 05/06/2010 05/12/2010 Inactive Zofran 4 mg Tab RxNorm: 568510 1 Tablet(s) PO Q4H prn nausea 200904/13/2010 Inactive MS Contin 60 mg Tab RxNorm: 553235 3 Tablet(s) PO BID 04/09/201004/22 Inactive Soma 350 mg Tab RxNorm: 041952 2 Tablet(s) PO TID 04/09/2010 05/08/20 10 Inactive Symbicort 160 mcg-4.5 mcg/Actuation Inhalation HFA Aer osol Inhaler RxNorm: 0838234 2 Puff(s) INH BID 04/08/2010 05/05/2010 Inactive Doxycycline 100 mg Cap RxNorm: 6376807 1 Capsule(s) PO BID 04/08/20 10 04/17/2010 Inactive Triamterene-Hydrochlorothiazide 37.5 mg-25 mg Cap RxNorm: 19 8316 1 Capsule(s) PO QAM 04/08/2010 09/04/2010 Inactive fluoxetine 40 mg Cap RxNorm: 757777 1 Capsule(s) PO QAM 04/08/2010 Inactive Morphine SR 120 mg multiphase 24 hr Cap RxNorm: 386040 1 Capsul e(s) PO 03/11/2010 04/07/2010 Inactive Endocet 10 mg-325 mg Tab RxNorm: 5000831 1-2 Tablet(s) PO Q4H NE N PAIN 03/11/2010 04/09/2010 Inactive Savella 100 mg Tab RxNorm: 201007 1 Tablet(s) PO BID 03/10/201004/09 Inactive Soma 350 mg Tab RxNorm: 452092 1 Tablet(s) PO TID prn spasm 010 04/09/2010 Inactive Savella 100 mg Tab RxNorm: 745038 1 Tablet(s) PO BID 02/03/201004/09 Inactive Aspirin 81 mg Tab RxNorm: 301773 1 Tablet(s) PO QD No Start Date Active Zyrtec 10 mg Tab RxNorm: 2323325 1 Tablet(s) PO QD No Start Date Active One Touch Ultra Test Strips RxNorm: Misc test at least t wice daily. No Start Date Active coenzyme Q10 200 mg capsule RxNorm: 023267 1 Capsule(s) PO QD No Star t Date Active One Touch Ultra Test Strips RxNorm: InVt BID Zainab t blood sugar at least twice daily. No Start Date 11/10/2010 Inactive Gabapentin 800 mg Tab RxNorm: 391299 1 Tablet(s) PO QD No Start Date 05/05/2010 Inactive Abilify 5 mg tablet RxNorm: 520899 1 Tablet(s) PO QD No Start Date Inactive Chantix 1 mg Tab RxNorm: 369647 1 Tablet(s) PO BID No Start Date 10/22 Inactive Ozempic 0.25 mg or 0.5 mg (2 mg/1.5 mL) subcutaneous p en injector RxNorm: 4032989 .25 Milligram(s) SQ QW No Start Date 07/04/2019 Inactive lancets 28 gauge RxNorm: Miscellaneous As needed for blo od glucose sticks No Start Date 08/23/2013 Inactive potassium chloride ER 20 mEq tablet,extended release RxNorm: 684008 2 Tablet(s) PO QD No Start Date 09/26/2018 Inactive Ventolin HFA 90 mcg/actuation Aerosol Inhaler RxNorm: 204783 2 Puff(s) INH Q4H prn No Start Date 01/17/2012 Inactive potassium chloride ER 20 mEq tablet,extended release RxNorm: 636280 2 Tablet(s) PO QD No Start Date 10/19/2018 Inactive Januvia 100 mg tablet RxNorm: 202419 1 Tablet(s) PO QD No Start Date 09/10/2015 Inactive Medrol (Aníbal) 4 mg Tabs in a Dose Pack RxNorm: 464656 Tablet(s) PO N o Start Date 08/09/2011 Inactive as directed Zithromax Z-Aníbal 250 mg Tab RxNorm: 425159 Tablet(s) PO No Start Date 01/25/2012 Inactive as directed vitamin B6-vitamin E-magnesium tablet RxNorm: 1 Tablet(s ) PO QHS with INH No Start Date 03/30/2018 Inactive prednisone 20 mg Tab RxNorm: 489852 1 Tablet(s) PO TID for 1wk then 1 po BID for 1wk No Start Date 01/25/2012 Inactive furosemide 40 mg tablet RxNorm: 164302 1 Tablet(s) PO QAM No Start Date 10/09/2018 Inactive Vitamin D3 1000 units Capsule RxNorm: 1 Capsule(s) PO TID No S tart Date 03/19/2015 Inactive Zofran 4 mg Tab RxNorm: 491676 1 Tablet(s) PO Q4H prn nausea No Sta rt Date 04/13/2010 Inactive Premarin 0.625 mg/g Vaginal Cream RxNorm: 102825 1 Gram (s) VAG QHS 3 times a week No Start Date 09/22/2017 Inactive oxycodone 10 mg tablet RxNorm: 1833311 1-2 Tablet(s) PO QID as n eeded for pain No Start Date 11/04/2015 Inactive Nicoderm CQ 21 mg/24 hr daily Patch RxNorm: 390931 1 Applicatio n TD QD No Start Date 08/05/2015 Inactive Topamax 50 mg tablet RxNorm: 372299 1/2 Tablet(s) PO QH S for 1wk then 1 po q HS for 1wk then 2 po q HS No Start Date 06/27/2012 Inactive Chantix Starting Month Aníbal 0.5 mg (11)-1 mg (3x14) Tab s in a Dose Pack RxNorm: 949833 Tablet(s) PO as directed No Start Date 03/01/2011 Inactive Trulicity 0.75 mg/0.5 mL subcutaneous pen injector RxNorm: 1 840558 Milliliter(s) SQ No Start Date 07/04/2019 Inactive Medrol (Aníbal) 4 mg Tabs in a Dose Pack RxNorm: 713690 Tablet(s) PO N o Start Date 01/25/2012 Inactive as directed Duragesic 100 mcg/hr Transderm Patch RxNorm: 489729 2 A pplication TD Q48H for pain No Start Date 09/05/2013 Inactive Premarin 0.9 mg Tab RxNorm: 438725 1 Tablet(s) PO QD No Start Date Inactive Zithromax Z-Aníbal 250 mg Tab RxNorm: 194416 Tablet(s) PO as direc chinmay No Start Date 01/25/2012 Inactive ondansetron 8 mg disintegrating tablet RxNorm: 285234 1 Tablet(s) PO Q6H as needed No Start Date 10/10/2018 Inactive oxycodone 15 mg tablet RxNorm: 5312068 1 Tablet(s) PO QID as nee ded for pain No Start Date 03/05/2019 Inactive ProAir HFA 90 mcg/Actuation Aerosol Inhaler RxNorm: 379061 2 Puff(s) INH Q4H prn for wheezing or shortness of breath No Start Date 12/21/2011 Inactive pravastatin 40 mg tablet RxNorm: 114684 1/2 Tablet(s) PO QOD No Sta rt Date 04/09/2015 Inactive ipratropium-albuterol 0.5 mg-3 mg(2.5 mg base)/3 mL ne bulization soln RxNorm: 7032306 1 Unit Dose INH Q4H as needed No Start Date 09/09/2016 Inactive furosemide 40 mg tablet RxNorm: 494898 1 Tablet(s) PO QAM as ne eded No Start Date 09/24/2019 Inactive Vitamin D2 oral RxNorm: 4018 oral No Start Date 03/18/2015 Inacti ve pravastatin 40 mg tablet RxNorm: 810252 1/2 Tablet(s) PO QD No Star t Date 04/09/2015 Inactive ondansetron HCl 4 mg tablet RxNorm: 011964 1 Tablet(s) PO Q4H as needed for nausea and vomiting No Start Date 04/07/2016 Inactive furosemide 40 mg tablet RxNorm: 395111 2 Tablet(s) PO QAM No Start Date 09/26/2018 Inactive gabapentin 800 mg tablet RxNorm: 100685 1/2 Tablet(s) PO BID No Sta rt Date 06/21/2017 Inactive gabapentin 800 mg tablet RxNorm: 493166 1/2 Tablet(s) PO BID No Sta rt Date 07/05/2017 Inactive ProAir HFA 90 mcg/Actuation Aerosol Inhaler RxNorm: 170977 2 Puff(s) INH Q4H prn shortness of breath No Start Date 05/05/2010 Inactive scopolamine 1 mg over 3 days transdermal patch RxNorm: 27669 2 1 Application TD behind ear. Take off after three days No Start Date 10/10/2018 Inactive Metformin 500 mg Tab RxNorm: 515565 1 Tablet(s) PO QD No Start Date 0 05/05/2010 Inactive MS Contin 200 mg Tab RxNorm: 517699 1 Tablet(s) PO BID No Start Date 08/20/2011 Inactive Belladonna-Phenobarbital 48 mg tablet,extended release RxNor m: 2 Tablet(s) PO TID No Start Date 06/04/2016 Inactive Synthroid 112 mcg Tab RxNorm: 542192 1 Tablet(s) PO QD No Start Date 05/05/2010 Inactive Zegerid 40 mg-1.1 gram Cap RxNorm: 688350 1 Capsule(s) PO QD No Sta rt Date 01/25/2012 Inactive Premarin 0.625 mg/g Vaginal Cream RxNorm: 266287 VAG In sert 1gm vaginally at bedtime 3 times weekly No Start Date 01/17/2011 Inactive potassium chloride ER 20 mEq tablet,extended release RxNorm: 468115 1 Tablet(s) PO QD No Start Date 04/24/2019 Inactive methocarbamol 750 mg tablet RxNorm: 876915 2 Tablet(s) PO TID as needed for muscle spasm No Start Date 07/08/2014 Inactive Biaxin XL Aníbal 500 mg 24 hr Tab RxNorm: 968341 Tablet(s) PO as d irected No Start Date 04/24/2013 Inactive Vitamin D3 1,000 unit tablet RxNorm: 578384 3 Tablet(s) PO QD No St art Date 06/01/2017 Inactive Morphine SR 120 mg multiphase 24 hr Cap RxNorm: 859646 1 Capsul e(s) PO BID No Start Date 04/09/2010 Inactive Silvadene 1 % topical cream RxNorm: 704035 1 Application TOP BI D to burn area No Start Date 01/31/2017 Inactive Prednisone 20 mg Tab RxNorm: 819100 1 Tablet(s) PO TID for 3days then BID for 4days No Start Date 01/25/2012 Inactive gabapentin 600 mg tablet RxNorm: 969421 1 Tablet(s) PO BID No Start Date 01/21/2015 Inactive topiramate 50 mg tablet RxNorm: 639616 1 Tablet(s) PO QHS No Start Date 03/30/2018 Inactive Januvia 100 mg tablet RxNorm: 349818 1/2 Tablet(s) PO QD No Start D ate 12/25/2015 Inactive Diazepam 10 mg Tab RxNorm: 503044 1 Tablet(s) PO BID and PRN No Sta rt Date 06/08/2010 Inactive Medication Administered No Medication Administered data Immunizations Vaccine Codes Date Status Influenza CVX: 141 09/28/2012 Pneumovax Unknown 09/28/2012 Influenza (Adult) CVX: 141 09/02/2010 Results No Results data Procedures Procedure Codes Date THER/PROPH/DIAG INJ SC/IM CPT-4: 26766 07/10/2019 METHYLPREDNISOLONE INJECTION CPT-4: J2930 07/10/2019 URINALYSIS NONAUTO W/O SCOPE CPT-4: 43906 09/06/2018 URINE CULTURE/ COLONY COUNT CPT-4: 50243 09/06/2018 DRAIN/INJECT JOINT/BURSA CPT-4: 11424 04/29/2017 TRIAMCINOLONE ACET INJ NOS CPT-4: J3301 04/29/2017 DEXAMETHASONE SODIUM PHOS CPT-4: J1100 04/29/2017 INFLUENZA ASSAY W/OPTIC CPT-4: 64132 12/01/2016 RESPIRATORY CULTURE & STAIN CPT-4: 39243 07/09/2016 TB INTRADERMAL TEST CPT-4: 47009 04/21/2016 DRAIN/INJECT JOINT/BURSA CPT-4: 16253 11/07/2013 METHYLPREDNISOLONE 40 MG INJ CPT-4: J1030 11/07/2013 TRIAMCINOLONE ACET INJ NOS CPT-4: J3301 11/07/2013 DRAIN/INJECT JOINT/BURSA CPT-4: 66038 08/08/2013 METHYLPREDNISOLONE 40 MG INJ CPT-4: J1030 08/08/2013 TRIAMCINOLONE ACET INJ NOS CPT-4: J3301 08/08/2013 FLU VACCINE 3 YRS & > IM UP 64 CPT-4: 44281 2 PNEUMOCOCCAL VACC 23 ADITYA IM CPT-4: 40662 09/28/2012 IMMUNIZATION ADMIN CPT-4: 57383 09/28/2012 IMMUNIZATION ADMIN EACH ADD CPT-4: 19053 09/28/2012 FLU VACCINE 3 YRS & > IM UP 64 CPT-4: 68625 0 IMMUNIZATION ADMIN CPT-4: 24780 09/02/2010 METHYLPREDNISOLONE INJECTION CPT-4: J2930 05/07/2010 THER/PROPH/DIAG INJ SC/IM CPT-4: 24386 05/07/2010 Vital Signs Date Vital 11/29/2019 Blood [...] 1: 122/78 Code: 8480-6 BMI: 29.5 Code: 25203-1 Heart Rate 1: 76 bpm Height: 5'4" Respiratory Rate: 20 bpm SpO2: 96% Tempera ture: 37.0 (C) / 98.6 (F) Weight: 172 lbs 01/25/2019 Blood Pressure 1: 132/80 Code: 8480-6 BMI: 29.7 Code: 01066-3 Heart Rate 1: 84 bpm Height: 5'4" Respiratory Rate: 22 bpm SpO2: 98% Tempera ture: 36.9 (C) / 98.4 (F) Weight: 173 lbs 01/03/2019 Blood Pressure 1: 116/70 Code: 8480-6 BMI: 29.5 Code: 77161-9 Heart Rate 1: 92 bpm Height: 5'4" Respiratory Rate: 24 bpm SpO2: 98% Tempera ture: 37.2 (C) / 98.9 (F) Weight: 172 lbs 11/21/2018 Blood Pressure 1: 146/82 Code: 8480-6 BMI: 28.2 Code: 50437-0 Heart Rate 1: 88 bpm Height: 5'4" Respiratory Rate: 22 bpm SpO2: 97% Tempera ture: 36.9 (C) / 98.4 (F) Weight: 164 lbs 10/27/2018 Blood Pressure 1: 122/70 Code: 8480-6 BMI: 27.6 Code: 47375-2 Heart Rate 1: 88 bpm Height: 5'4" Respiratory Rate: 20 bpm SpO2: 96% Tempera ture: 36.8 (C) / 98.3 (F) Weight: 161 lbs 10/18/2018 Blood Pressure 1: 126/70 Code: 8480-6 BMI: 28.3 Code: 20447-6 Heart Rate 1: 76 bpm Height: 5'4" Respiratory Rate: 20 bpm SpO2: 95% Tempera ture: 37.0 (C) / 98.6 (F) Weight: 165 lbs 09/27/2018 Blood Pressure 1: 124/78 Code: 8480-6 BMI: 27.1 Code: 85196-1 Heart Rate 1: 88 bpm Height: 5'4" Respiratory Rate: 20 bpm SpO2: 98% Tempera ture: 36.4 (C) / 97.6 (F) Weight: 158 lbs 09/14/2018 Blood Pressure 1: 140/72 Code: 8480-6 BMI: 26.1 Code: 07902-0 Heart Rate 1: 100 bpm Height: 5'4" Respiratory Rate: 20 bpm SpO2: 97% Tempera ture: 36.9 (C) / 98.4 (F) Weight: 152 lbs 09/06/2018 Blood Pressure 1: 156/82 Code: 8480-6 BMI: 26.3 Code: 66630-4 Heart Rate 1: 100 bpm Height: 5'4" Respiratory Rate: 28 bpm SpO2: 95% Tempera ture: 37.2 (C) / 98.9 (F) Weight: 153 lbs 08/16/2018 Blood Pressure 1: 130/78 Code: 8480-6 Heart Rate 1: 87 bpm Respiratory Rate: 24 bpm SpO2: 94% Temperature: 36.9 (C) / 98.4 (F) We ight: 147 lbs 8 oz 07/07/2018 Blood Pressure 1: 116/78 Code: 8480-6 BMI: 22.7 Code: 88371-0 Heart Rate 1: 88 bpm Height: 5'4" Respiratory Rate: 22 bpm SpO2: 98% Tempera ture: 36.5 (C) / 97.7 (F) Weight: 132 lbs 05/31/2018 Blood Pressure 1: 128/78 Code: 8480-6 BMI: 22.3 Code: 62516-6 Heart Rate 1: 92 bpm Height: 5'4" Respiratory Rate: 26 bpm SpO2: 94% Tempera ture: 36.7 (C) / 98.1 (F) Weight: 130 lbs 03/31/2018 Blood Pressure 1: 136/78 Code: 8480-6 BMI: 21.5 Code: 82203-5 Heart Rate 1: 76 bpm Height: 5'4" Respiratory Rate: 24 bpm SpO2: 95% Tempera ture: 36.8 (C) / 98.3 (F) Weight: 125 lbs 01/26/2018 Blood Pressure 1: 142/64 Code: 8480-6 BMI: 20.6 Code: 55525-8 Heart Rate 1: 90 bpm Height: 5'4" Respiratory Rate: 24 bpm SpO2: 92% Tempera ture: 36.3 (C) / 97.3 (F) Weight: 120 lbs 10/26/2017 Blood Pressure 1: 124/70 Code: 8480-6 BMI: 20.3 Code: 95828-8 Heart Rate 1: 76 bpm Height: 5'4" Respiratory Rate: 22 bpm SpO2: 94% Tempera ture: 36.7 (C) / 98.1 (F) Weight: 118 lbs 09/23/2017 Blood Pressure 1: 106/70 Code: 8480-6 BMI: 19.2 Code: 43442-4 Heart Rate 1: 76 bpm Height: 5'4" Respiratory Rate: 20 bpm SpO2: 94% Tempera ture: 36.8 (C) / 98.3 (F) Weight: 112 lbs 08/12/2017 Blood Pressure 1: 116/68 Code: 8480-6 BMI: 20.1 Code: 32940-2 Heart Rate 1: 80 bpm Height: 5'4" Respiratory Rate: 22 bpm SpO2: 95% Tempera ture: 36.8 (C) / 98.2 (F) Weight: 117 lbs 07/06/2017 Blood Pressure 1: 136/78 Code: 8480-6 BMI: 20.6 Code: 17281-4 Heart Rate 1: 76 bpm Height: 5'4" Respiratory Rate: 24 bpm SpO2: 96% Tempera ture: 36.8 (C) / 98.2 (F) Weight: 120 lbs 06/02/2017 Blood Pressure 1: 112/70 Code: 8480-6 Heart Rate 1: 92 bpm Height: 5'4" Respiratory Rate: 24 bpm SpO2: 95% Temperature: 37.0 (C) / 98.6 (F) Weight: 04/29/2017 Blood Pressure 1: 94/52 Code: 8480-6 BMI: 19.6 C ode: 99991-2 Heart Rate 1: 84 bpm Height: 5'4" [...] 92/58 Code: 8480-6 BMI: 19.2 C ode: 00518-5 Heart Rate 1: 84 bpm Height: 5'4" Respiratory Rate: 26 bpm SpO2: 95% Tempera ture: 36.7 (C) / 98.0 (F) Weight: 112 lbs 12/01/2016 Blood Pressure 1: 114/70 Code: 8480-6 BMI: 19.2 Code: 56834-2 Heart Rate 1: 96 bpm Height: 5'4" Respiratory Rate: 28 bpm SpO2: 93% Tempera ture: 38.3 (C) / 101.0 (F) Weight: 112 lbs 10/27/2016 Blood Pressure 1: 126/66 Code: 8480-6 BMI: 19.6 Code: 84697-4 Heart Rate 1: 92 bpm Height: 5'4" Respiratory Rate: 28 bpm SpO2: 90% Tempera ture: 36.8 (C) / 98.3 (F) Weight: 114 lbs 09/09/2016 Blood Pressure 1: 126/74 Code: 8480-6 Heart Rate 1: 104 bpm Height: 5'4" Respiratory Rate: 32 bpm SpO2: 88% Temperature: 37 .2 (C) / 99.0 (F) 08/26/2016 Blood Pressure 1: 134/82 Code: 8480-6 BMI: 22.0 Code: 17956-6 Heart Rate 1: 84 bpm Height: 5'4" Respiratory Rate: 24 bpm SpO2: 94% Tempera ture: 36.8 (C) / 98.3 (F) Weight: 128 lbs 05/21/2016 Blood Pressure 1: 142/80 Code: 8480-6 BMI: 21.6 Code: 55348-4 Heart Rate 1: 104 bpm Height: 5'4" Respiratory Rate: 22 bpm SpO2: 93% Tempera ture: 36.0 (C) / 96.8 (F) Weight: 126 lbs 03/25/2016 Blood Pressure 1: 126/62 Code: 8480-6 Heart Rate 1: 88 bpm Respiratory Rate: 20 bpm SpO2: 92% Temperature: 36.8 (C) / 98.3 (F) We ight: 130 lbs 01/23/2016 Blood Pressure 1: 146/82 Code: 8480-6 BMI: 24.1 Code: 35511-9 Heart Rate 1: 92 bpm Height: 5'3" Respiratory Rate: 22 bpm Temperature: 37 .1 (C) / 98.8 (F) Weight: 136 lbs 12/26/2015 Blood Pressure 1: 142/78 Code: 8480-6 BMI: 24.6 Code: 08877-5 Heart Rate 1: 78 bpm Height: 5'3" Respiratory Rate: 20 bpm Temperature: 36 .7 (C) / 98.1 (F) Weight: 139 lbs 12/03/2015 Blood Pressure 1: 126/60 Code: 8480-6 BMI: 24.6 Code: 07760-4 Heart Rate 1: 100 bpm Height: 5'3" Respiratory Rate: 28 bpm Temperature: 37 .6 (C) / 99.6 (F) Weight: 139 lbs 09/10/2015 Blood Pressure 1: 124/64 Code: 8480-6 BMI: 23.7 Code: 06887-4 Heart Rate 1: 88 bpm Height: 5'3" Respiratory Rate: 24 bpm SpO2: 95% Tempera ture: 36.4 (C) / 97.6 (F) Weight: 134 lbs 08/06/2015 Blood Pressure 1: 114/76 Code: 8480-6 BMI: 23.2 Code: 13198-9 Heart Rate 1: 88 bpm Height: 5'3" Respiratory Rate: 22 bpm Temperature: 36 .6 (C) / 97.9 (F) Weight: 131 lbs 07/18/2015 Blood Pressure 1: 144/78 Code: 8480-6 BMI: 23.7 Code: 36861-8 Heart Rate 1: 84 bpm Height: 5'3" Respiratory Rate: 20 bpm Temperature: 37 .2 (C) / 99.0 (F) Weight: 134 lbs 04/10/2015 Blood Pressure 1: 110/64 Code: 8480-6 Heart Rate 1: 80 bpm Height: Respiratory Rate: 20 bpm Temperature: 37.1 (C) / 98.8 (F) Weight: 03/05/2015 Blood Pressure 1: 136/80 Code: 8480-6 BMI: 23.9 Code: 61231-9 Heart Rate 1: 76 bpm Height: 5'3" Respiratory Rate: 24 bpm Temperature: 37 .0 (C) / 98.6 (F) Weight: 135 lbs 01/30/2015 Blood Pressure 1: 142/80 Code: 8480-6 BMI: 23.0 Code: 46113-6 Heart Rate 1: 96 bpm Height: 5'3" Respiratory Rate: 22 bpm Temperature: 36 .2 (C) / 97.2 (F) Weight: 130 lbs 01/02/2015 Blood Pressure 1: 124/70 Code: 8480-6 BMI: 23.4 Code: 03871-5 Heart Rate 1: 84 bpm Height: 5'3" Respiratory Rate: 24 bpm SpO2: 95% Tempera ture: 36.9 (C) / 98.5 (F) Weight: 132 lbs 10/03/2014 Blood Pressure 1: 106/68 Code: 8480-6 BMI: 22.5 Code: 46098-2 Heart Rate 1: 88 bpm Height: 5'3" Respiratory Rate: 24 bpm Temperature: 37 .0 (C) / 98.6 (F) Weight: 127 lbs 08/27/2014 Blood Pressure 1: 124/68 Code: 8480-6 BMI: 21.1 Code: 97640-2 Heart Rate 1: 88 bpm Height: 5'3" [...] 1: 120/70 Code: 8480-6 BMI: 19.2 Code: 21261-6 Heart Rate 1: 70 bpm Height: 5'4" Respiratory Rate: 20 bpm Temperature: 36 .9 (C) / 98.4 (F) Weight: 112 lbs 06/28/2013 Blood Pressure 1: 102/68 Code: 8480-6 BMI: 19.6 Code: 41938-0 Heart Rate 1: 76 bpm Height: 5'4" Respiratory Rate: 20 bpm Temperature: 36 .8 (C) / 98.2 (F) Weight: 114 lbs 05/31/2013 Blood Pressure 1: 106/70 Code: 8480-6 BMI: 18.9 Code: 99329-9 Heart Rate 1: 100 bpm Height: 5'4" Respiratory Rate: 20 bpm Temperature: 36 .4 (C) / 97.6 (F) Weight: 110 lbs 05/03/2013 Blood Pressure 1: 126/70 Code: 8480-6 BMI: 19.1 Code: 78345-9 Heart Rate 1: 88 bpm Height: 5'4" Respiratory Rate: 20 bpm Temperature: 37 .1 (C) / 98.8 (F) Weight: 111 lbs 04/25/2013 Blood Pressure 1: 114/68 Code: 8480-6 BMI: 19.4 Code: 00434-4 Heart Rate 1: 92 bpm Height: 5'4" Respiratory Rate: 24 bpm SpO2: 96% Tempera ture: 37.7 (C) / 99.8 (F) Weight: 113 lbs 03/08/2013 Blood Pressure 1: 94/68 Code: 8480-6 BMI: 21.3 C ode: 88313-4 Heart Rate 1: 88 bpm Height: 5'4" Respiratory Rate: 24 bpm Temperature: 37 .0 (C) / 98.6 (F) Weight: 124 lbs 02/07/2013 Blood Pressure 1: 106/64 Code: 8480-6 BMI: 21.8 Code: 81332-7 Heart Rate 1: 84 bpm Height: 5'4" Respiratory Rate: 22 bpm Temperature: 36 .8 (C) / 98.2 (F) Weight: 127 lbs 01/10/2013 Blood Pressure 1: 122/68 Code: 8480-6 BMI: 21.6 Code: 35826-6 Heart Rate 1: 94 bpm Height: 5'4" SpO2: 94% Temperature: 36.7 (C) / 98.1 (F) Weight: 126 lbs 09/28/2012 Blood Pressure 1: 124/78 Code: 8480-6 BMI: 24.9 Code: 73819-7 Heart Rate 1: 92 bpm Height: 5'4" Respiratory Rate: 20 bpm Temperature: 36 .7 (C) / 98.1 (F) Weight: 145 lbs 06/28/2012 Blood Pressure 1: 134/80 Code: 8480-6 BMI: 24.9 Code: 66058-0 Heart Rate 1: 76 bpm Height: 5'4" Respiratory Rate: 20 bpm Temperature: 36 .8 (C) / 98.2 (F) Weight: 145 lbs 05/03/2012 Blood Pressure 1: 108/62 Code: 8480-6 BMI: 25.6 Code: 21664-1 Heart Rate 1: 88 bpm Height: 5'4" Temperature: 36.2 (C) / 97.2 (F) Weight: 149 lbs 03/01/2012 Blood Pressure 1: 124/66 Code: 8480-6 BMI: 25.1 Code: 59705-6 Heart Rate 1: 76 bpm Height: 5'4" Respiratory Rate: 20 bpm Temperature: 36 .6 (C) / 97.9 (F) Weight: 146 lbs 01/26/2012 Blood Pressure 1: 118/82 Code: 8480-6 BMI: 25.1 Code: 85103-2 Heart Rate 1: 74 bpm Height: 5'4" Temperature: 36.8 (C) / 98.2 (F) Weight: 146 lbs 11/03/2011 Blood Pressure 1: 126/80 Code: 8480-6 BMI: 27.3 Code: 32149-4 Heart Rate 1: 72 bpm Height: 5'4" [...] Monitoring 02/13/2020 follow up 11/29/2019 Discuss pneumonia [facility] follow up 10/30/2019 follow up 10/25/2019 follow [...] prozac Encounters Encounter Performer Location Codes Date ([id number]) OFFICE/OUTPATIENT VISIT EST Diagnosis: Urticaria[ICD10: L50.9] Diagnosis: Allergy to morphine[ICD10: Z88.5] Diagnosis: Chronic pain syndrome[ICD10: G89.4] Vika RENTERIA [employer] CPT-4: 71890 02/13/2020 ([id number]) OFFICE/OUTPATIENT VISIT EST Diagnosis: Chronic pain syndrome[ICD10: G89.4] Diagnosis: Localized edema[ICD10: R60.0] Diagnosis: Chronic obstructive pulmonary disease, unspecified[ICD10: J44.9] Diagnosis: Other fatigue[ICD10: R53.83] Diagnosis: Muscle weakness (generalized)[ICD10: M62.81] Diagnosis: Spinal stenosis, lumbar region with neurogenic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 [address] [id number] [place] Referral Initiated Referral: Kyle Billings WPtel: [phone] [place] [address] [place] Referral Appointment Requested Instructions Comment . [...] prn breakthrough pain . Discussed that some [employer] produc ts are petroleum free If [...]
--- OUTSIDE RECORDS SUMMARY | 2020-04-24 22:52 | XMS REPORT | CCD ---
Author Author Yana Renteria D.O. Organization [facility] Address [address] [place] [address] Phone Care Team Providers Care Street Sprinkler Name Role Phone Vika Renteria D.O., PP Unavailable CCM Unavailable Summary Purpose Interface Exchange Insurance Providers Payer name Policy type / Coverage type Covered democrat ID Effective Begin Date Effective End Date [employer] [facility] Medicaid [id number] U nknown Family History Family History data not found Social History Social History Element Codes Description Effective Dates Marital status Unknown 06/28/[address]: [id number] Currently smokes tobacco 05/2013 Allergies, Adverse Reactions, [...] Fill Instructions prednisone 20 mg tablet RxNorm: 728456 1 Tablet(s) Oral two yumi es a day 02/13/2020 02/20/2020 Active oxycodone 30 mg tablet RxNorm: 9602299 1 Tablet(s) Oral four times a day replaces MS Contin 02/13/2020 03/14/2020 Active levothyroxine 25 mcg tablet RxNorm: 316969 TAKE ONE TAB LET BY MOUTH EVERY MORNING 02/09/2020 No Stop Date Active MS Contin 200 mg tablet,extended release RxNorm: 084651 1 Tablet(s) Oral two times a day 02/01/2020 03/01/2020 Active cyclobenzaprine 10 mg tablet RxNorm: 922545 TAKE ONE TA BLET BY MOUTH THREE TIMES A DAY NEEDED 01/31/2020 No Stop Date Active Premarin 0.45 mg tablet RxNorm: 013303 TAKE ONE TABLET BY MOUTH DAILY 01/31/2020 No Stop Date Active metformin 500 mg tablet RxNorm: 413765 1 Tablet(s) Oral QD 01/31/20 20 04/29/2020 Active gabapentin 300 mg capsule RxNorm: 871656 TAKE ONE CAPSULE BY [facility] TWICE A DAY 01/16/2020 No Stop Date Active potassium chloride ER 20 mEq tablet,extended release RxNorm: 415822 TAKE ONE TABLET BY MOUTH DAILY 01/08/2020 07/05/2020 Active ProAir HFA 90 mcg/actuation aerosol inhaler RxNorm: 264126 INHALE ONE PUFF BY MOUTH EVERY 4 HOURS FOR WHEEZING OR FOR SHORTNESS OF BREATH 01/04/2020 No Stop Date Active metformin 500 mg tablet RxNorm: 981998 1 Tablet(s) Oral QD 01/04/20 20 01/30/2020 Inactive MS Contin 200 mg tablet,extended release RxNorm: 594848 1 Tablet(s) Oral two times a day 01/02/2020 01/31/2020 Inactive Pulmicort 1 mg/2 mL suspension for nebulization RxNorm: 6168 19 USE ONE VIAL VIA NEBULIZER BY MOUTH TWICE A DAY 12/21/2019 No Stop Date Active furosemide 40 mg tablet RxNorm: 656308 TAKE ONE TABLET BY MOUTH EVERY MORNING NEEDED 12/20/2019 No Stop Date Active levothyroxine 25 mcg tablet RxNorm: 176483 TAKE ONE TAB LET BY MOUTH EVERY MORNING 12/20/2019 02/08/2020 Inactive MS Contin 200 mg tablet,extended release RxNorm: 835004 1 Tablet(s) Oral two times a day 12/05/2019 01/01/2020 Inactive Medrol (Aníbal) 4 mg tablets in a dose pack RxNorm: 541564 6 Tablet(s) Oral QD --then as directed 11/30/2019 12/05/2019 Inactive MS Contin 200 mg tablet,extended release RxNorm: 571773 1 Tablet(s) Oral two times a day 11/29/2019 12/04/2019 Inactive cyclobenzaprine 10 mg tablet RxNorm: 933660 TAKE ONE TA BLET BY MOUTH THREE TIMES A DAY NEEDED 11/21/2019 01/30/2020 Inactive MS Contin 200 mg tablet,extended release RxNorm: 629251 1 Tablet(s) Oral two times a day replaces 100mg dose 11/03/2019 11/02/2019 Inactive MS Contin 200 mg tablet,extended release RxNorm: 263817 1 Tablet(s) Oral two times a day replaces 100mg dose 11/03/2019 11/29/2019 Inactive ferrous sulfate 325 mg (65 mg iron) tablet RxNorm: 443485 1 Tab let(s) Oral QD 10/30/2019 No Stop Date Active MS Contin 100 mg tablet,extended release RxNorm: 651250 1 Table t(s) Oral QD 10/30/2019 10/29/2019 Inactive MS Contin 100 mg tablet,extended release RxNorm: 149062 1 Table t(s) Oral QD 10/30/2019 11/02/2019 Inactive Relistor 150 mg tablet RxNorm: 4934813 TAKE THREE TABLETS BY BENOIT TH DAILY 10/25/2019 No Stop Date Active pantoprazole 40 mg tablet,delayed release RxNorm: 320483 1 Tabl et(s) Oral QD 10/25/2019 No Stop Date Active Minipress 2 mg capsule RxNorm: 101769 1 Capsule(s) Oral QAM and 3 at bedtime 10/25/2019 No Stop Date Active Lancets, Super Thin RxNorm: 1 Unit Dose Miscellaneous QD 9 11/27/2020 Active Cymbalta 60 mg capsule,delayed release RxNorm: 264913 1 Capsule (s) Oral QAM 10/25/2019 No Stop Date Active Cymbalta 30 mg capsule,delayed release RxNorm: 932961 1 Capsule (s) Oral QAM 10/25/2019 No Stop Date Active oxycodone 15 mg tablet RxNorm: 4245063 1 Tablet(s) Oral four times a day as needed for pain 10/25/2019 11/28/2019 Inactive metformin 500 mg tablet RxNorm: 941015 1 Tablet(s) Oral QD 10/25/20 19 01/03/2020 Inactive levothyroxine 25 mcg tablet RxNorm: 863048 1 Tablet(s) Oral QAM 02/201912/19/2019 Inactive levothyroxine 25 mcg tablet RxNorm: 452363 1 Tablet(s) Oral QAM 02/201910/24/2019 Inactive MS Contin 100 mg tablet,extended release RxNorm: 141482 1 Tablet(s) Oral two times a day replaces fentanyl 10/25/2019 10/25/2019 Inactive Premarin 0.45 mg tablet RxNorm: 998007 TAKE ONE TABLET BY MOUTH DAILY 10/24/2019 01/30/2020 Inactive Duragesic 100 mcg/hr transdermal patch RxNorm: 804731 2 Application TD Q48H for pain 10/18/2019 10/24/2019 Inactive gabapentin 300 mg capsule RxNorm: 618584 TAKE ONE CAPSULE BY MO UTH TWICE A DAY 10/16/2019 01/15/2020 Inactive cyclobenzaprine 10 mg tablet RxNorm: 938544 TAKE ONE TA BLET BY MOUTH THREE TIMES A DAY NEEDED 09/27/2019 11/20/2019 Inactive Relistor 150 mg tablet RxNorm: 7596734 TAKE THREE TABLETS BY BENOIT TH DAILY 09/25/2019 10/24/2019 Inactive ProAir HFA 90 mcg/actuation aerosol inhaler RxNorm: 669236 INHALE ONE PUFF BY MOUTH EVERY 4 HOURS FOR WHEEZING OR FOR SHORTNESS OF BREATH 09/25/2019 01/03/2020 Inactive furosemide 40 mg tablet RxNorm: 284304 1 Tablet(s) Oral QAM as needed 09/25/2019 09/25/2019 Inactive oxycodone 15 mg tablet RxNorm: 7072655 1 Tablet(s) PO QID as nee ded for pain 09/21/2019 10/24/2019 Inactive Duragesic 100 mcg/hr transdermal patch RxNorm: 774467 2 Application TD Q48H for pain 09/19/2019 10/17/2019 Inactive Daliresp 500 mcg tablet RxNorm: 7266402 1 Tablet(s) Oral QD 019 03/08/2020 Active Relistor 150 mg tablet RxNorm: 3038614 TAKE THREE TABLETS BY BENOIT TH DAILY 07/25/2019 07/30/2019 Inactive cyclobenzaprine 10 mg tablet RxNorm: 463674 TAKE ONE TA BLET BY MOUTH THREE TIMES A DAY NEEDED 07/25/2019 09/22/2019 Inactive potassium chloride ER 20 mEq tablet,extended release RxNorm: 471517 TAKE ONE TABLET BY MOUTH DAILY 07/25/2019 01/07/2020 Inactive fluoxetine 40 mg capsule RxNorm: 436636 TAKE ONE CAPSULE BY BENOIT TH EVERY MORNING 07/11/2019 10/24/2019 Inactive Medrol (Aníbal) 4 mg tablets in a dose pack RxNorm: 614735 6 Tablet(s) PO QD --then as directed 07/10/2019 07/15/2019 Inactive omeprazole 40 mg capsule,delayed release RxNorm: 513465 1 Capsule(s) PO QD for stomach TAKE ONE CAPSULE BY MOUTH DAILY 07/10/2019 10/24/2019 Inactive Augmentin 875 mg-125 mg tablet RxNorm: 507487 1 Tablet(s) PO BID 07/16/2019 Inactive Trulicity 0.75 mg/0.5 mL subcutaneous pen injector RxNorm: 1 085722 0.75 Milliliter(s) SQ weekly 07/05/2019 10/24/2019 Inactive Compazine 10 mg tablet RxNorm: 246735 TAKE ONE TABLET B Y MOUTH FOUR TIMES A DAY NEEDED FOR NAUSEA 06/20/2019 07/19/2019 Inactive ProAir HFA 90 mcg/actuation aerosol inhaler RxNorm: 899883 INHALE ONE PUFF BY MOUTH EVERY 4 HOURS FOR WHEEZING OR FOR SHORTNESS OF BREATH 06/20/2019 06/23/2019 Inactive Daliresp 500 mcg tablet RxNorm: 0639626 TAKE ONE TABLET BY MOUTH DAILY 06/12/2019 09/10/2019 Inactive uzjzqhga-rcqavwhts-myqylymyv 3.5 mg/mL-10,000 unit/mL- 1 % ear solution RxNorm: 031542 4 Drop(s) otic (ear) TID to left ear 06/05/2019 10/24/2019 Inac tive furosemide 40 mg tablet RxNorm: 272881 TAKE ONE TABLET BY MOUTH EVERY MORNING 05/26/2019 07/09/2019 Inactive Duragesic 100 mcg/hr transdermal patch RxNorm: 255452 2 Application TD Q48H for pain 05/16/2019 06/14/2019 Inactive oxycodone 15 mg tablet RxNorm: 9805644 1 Tablet(s) PO QID as nee ded for pain 05/10/2019 09/20/2019 Inactive doxycycline hyclate 100 mg capsule RxNorm: 9051875 1 Capsule(s) PO BID 05/03/2019 05/12/2019 Inactive prednisone 20 mg tablet RxNorm: 584323 1 Tablet(s) PO T ID for 3 days then 1 po BID for 3 days then one daily for 3 days 05/03/2019 07/11/2019 Inactiv e Ozempic 0.25 mg or 0.5 mg (2 mg/1.5 mL) subcutaneous p en injector RxNorm: 9897246 0.5 Milligram(s) SQ QW 05/03/2019 07/09/2019 Inactive fluconazole 100 mg tablet RxNorm: 623078 1 Tablet(s) PO QD 05/03/2005/07/2019 Inactive Premarin 0.45 mg tablet RxNorm: 997682 TAKE ONE TABLET BY MOUTH DAILY 05/03/2019 10/23/2019 Inactive potassium chloride ER 20 mEq tablet,extended release RxNorm: 263578 1 Tablet(s) PO QD 04/27/2019 07/25/2019 Inactive potassium chloride ER 20 mEq tablet,extended release RxNorm: 197156 1 Tablet(s) PO QD 04/25/2019 04/26/2019 Inactive Compazine 10 mg tablet RxNorm: 473654 1 Tablet(s) PO QID as nee ded for nausea 04/25/2019 05/04/2019 Inactive ProAir HFA 90 mcg/actuation aerosol inhaler RxNorm: 543896 INHALE ONE PUFF BY MOUTH EVERY 4 HOURS FOR WHEEZING OR FOR SHORTNESS OF BREATH 04/12/2019 06/10/2019 Inactive Medrol (Aníbal) 4 mg tablets in a dose pack RxNorm: 255521 6 Tablet(s) PO QD --then as directed 04/11/2019 04/16/2019 Inactive Symbicort 160 mcg-4.5 mcg/actuation HFA aerosol inhaler RxNo rm: 6578288 2 Puff(s) INH BID 04/10/2019 10/06/2019 Inactive levothyroxine 50 mcg tablet RxNorm: 962583 1 Tablet(s) PO QD 201810/24/2019 Inactive gabapentin 300 mg capsule RxNorm: 944030 1 Capsule(s) PO BID 201810/02/2019 Inactive Symbicort 160 mcg-4.5 mcg/actuation HFA aerosol inhaler RxNo rm: 1067279 2 Puff(s) INH BID 04/06/2019 04/09/2019 Inactive oxycodone 15 mg tablet RxNorm: 3333180 1 Tablet(s) PO QID as nee ded for pain 04/05/2019 05/09/2019 Inactive levothyroxine 50 mcg tablet RxNorm: 668933 1 Tablet(s) PO QD 201804/09/2019 Inactive furosemide 40 mg tablet RxNorm: 692696 TAKE ONE TABLET BY MOUTH EVERY MORNING 03/21/2019 04/19/2019 Inactive levothyroxine 50 mcg tablet RxNorm: 486855 TAKE ONE TABLET BY M OUTH DAILY 03/21/2019 03/27/2019 Inactive Duragesic 100 mcg/hr transdermal patch RxNorm: 666672 2 Application TD Q48H for pain 03/13/2019 04/11/2019 Inactive oxycodone 15 mg tablet RxNorm: 9006937 1 Tablet(s) PO QID as nee ded for pain 03/06/2019 04/04/2019 Inactive Relistor 150 mg tablet RxNorm: 7843261 3 Tablet(s) PO QD 02/28/2019 0 05/28/2019 Inactive cyclobenzaprine 10 mg tablet RxNorm: 199539 1 Tablet(s) PO TID as needed 02/28/2019 05/28/2019 Inactive phentermine 37.5 mg tablet RxNorm: 667694 1 Tablet(s) PO QAM 201803/15/2019 Inactive Duragesic 100 mcg/hr transdermal patch RxNorm: 849180 2 Application TD Q48H for pain 02/09/2019 03/10/2019 Inactive Daliresp 500 mcg tablet RxNorm: 7403433 TAKE ONE TABLET BY MOUTH DAILY 01/31/2019 05/30/2019 Inactive Premarin 0.45 mg tablet RxNorm: 186471 1 Tablet(s) PO QD 01/31/2019 0 04/30/2019 Inactive fluoxetine 40 mg capsule RxNorm: 907801 Capsule(s) TAKE ONE CAPSULE BY MOUTH EVERY MORNING 01/31/2019 04/30/2019 Inactive levothyroxine 50 mcg tablet RxNorm: 996788 1 Tablet(s) PO QD 201804/10/2019 Inactive follow up in 3 weeks levothyroxine 50 mcg tablet RxNorm: 129343 1 Tablet(s) PO QD 201801/25/2019 Inactive follow up in 3 weeks potassium chloride ER 20 mEq tablet,extended release RxNorm: 843152 2 Tablet(s) PO BID 01/23/2019 01/08/2020 Inactive Synthroid 50 mcg tablet RxNorm: 702966 TAKE ONE TABLET BY MOUTH DAILY 01/16/2019 10/24/2019 Inactive potassium chloride ER 20 mEq tablet,extended release RxNorm: 367854 2 Tablet(s) PO BID 01/04/2019 01/22/2019 Inactive ProAir HFA 90 mcg/actuation aerosol inhaler RxNorm: 627814 INHALE ONE PUFF BY MOUTH EVERY 4 HOURS FOR WHEEZING OR SHORTNESS OF BREATH 01/04/201902/20 Inactive Request already responded to by other me ans (e.g. phone or fax) ProAir HFA 90 mcg/actuation aerosol inhaler RxNorm: 4132988 INHALE ONE PUFF BY MOUTH EVERY 4 HOURS FOR WHEEZING OR SHORTNESS OF BREATH 01/02/201912/23 Inactive gabapentin 300 mg capsule RxNorm: 505221 TAKE ONE CAPSULE BY MO UTH TWICE A DAY 12/30/2018 04/06/2019 Inactive furosemide 40 mg tablet RxNorm: 215192 1 Tablet(s) PO QAM 12/26/2018 02/23/2019 Inactive Compazine 10 mg tablet RxNorm: 878294 1 Tablet(s) PO QID as nee ded for nausea 12/07/2018 12/16/2018 Inactive metolazone 2.5 mg tablet RxNorm: 948436 TAKE ONE TABLET BY MOUT H EVERY MORNING 12/05/2018 01/03/2019 Inactive metformin ER 500 mg tablet,extended release 24 hr RxNorm: 86 0975 TAKE ONE TABLET BY MOUTH DAILY 12/05/2018 01/31/2020 Inactive Synthroid 50 mcg tablet RxNorm: 280775 1 Tablet(s) PO QD 11/25/2018 0 01/03/2019 Inactive DC any other synthroid strengths. Should be 50mcg only cyclobenzaprine 10 mg tablet RxNorm: 152350 TAKE ONE TA BLET BY MOUTH THREE TIMES A DAY NEEDED 11/09/2018 02/06/2019 Inactive metolazone 2.5 mg tablet RxNorm: 226867 1 Tablet(s) PO QAM repl aces 5mg dose 11/02/2018 12/01/2018 Inactive potassium chloride ER 20 mEq tablet,extended release RxNorm: 872201 2 Tablet(s) PO QD 2018 01/02/2019 Inactive Compazine 10 mg tablet RxNorm: 198619 1 Tablet(s) PO QID as nee ded for nausea 10/18/2018 12/07/2018 Inactive furosemide 40 mg tablet RxNorm: 703870 1 Tablet(s) PO QAM 10/12/2018 12/10/2018 Inactive ondansetron 8 mg disintegrating tablet RxNorm: 020361 1 Tablet(s) PO Q6H as needed 10/11/2018 10/17/2018 Inactive scopolamine 1 mg over 3 days transdermal patch RxNorm: 47584 2 1 Application TD behind ear. Take off after three days 10/11/2018 01/02/2019 Inactive furosemide 40 mg tablet RxNorm: 649137 1 Tablet(s) PO QAM 10/10/2018 12/26/2018 Inactive metolazone 5 mg tablet RxNorm: 628137 1 Tablet(s) PO QAM 10/06/2018 1 01/03/2018 Inactive metolazone 5 mg tablet RxNorm: 687950 1 Tablet(s) PO QAM 10/06/2018 1 12/05/2017 Inactive Xtampza ER 36 mg capsule sprinkle RxNorm: 3664156 1 Capsule(s) P O BID 10/05/2018 01/02/2019 Inactive Xtampza ER 36 mg capsule sprinkle RxNorm: 5039903 1 Capsule(s) P O BID 10/05/2018 02/12/2019 Inactive omeprazole 40 mg capsule,delayed release RxNorm: 733134 TAKE ONE CAPSULE BY MOUTH DAILY 10/03/2018 12/31/2018 Inactive Duragesic 100 mcg/hr transdermal patch RxNorm: 961688 2 Application TD Q48H for pain 09/30/2018 10/29/2018 Inactive Synthroid 50 mcg tablet RxNorm: 348003 1 Tablet(s) PO QD 09/29/2018 0 11/25/2018 Inactive DC any other synthroid strengths. Should be 50mcg only Synthroid 50 mcg tablet RxNorm: 991057 1 Tablet(s) PO QD 09/29/2018 1 11/28/2017 Inactive furosemide 40 mg tablet RxNorm: 177871 2 Tablet(s) PO Q AM for 1 week then every other day for 2 weeks 09/27/2018 10/12/2018 Inactive fluoxetine 40 mg capsule RxNorm: 671108 2 Capsule(s) PO QD 09/27/20 18 10/17/2018 Inactive potassium chloride ER 20 mEq tablet,extended release RxNorm: 861563 2 Tablet(s) PO QD for 1 week then every other day for 2 weeks 09/27/2018 2018 Inactive ProAir HFA 90 mcg/actuation aerosol inhaler RxNorm: 2909675 INHALE ONE PUFF BY MOUTH EVERY 4 HOURS FOR WHEEZING OR SHORTNESS OF BREATH 09/26/201811/23 Inactive Synthroid 75 mcg tablet RxNorm: 472081 1 Tablet(s) PO QD 09/09/2018 1 Inactive Synthroid 75 mcg tablet RxNorm: 931000 1 Tablet(s) PO QD 09/09/2018 1 11/28/2017 Inactive furosemide 40 mg tablet RxNorm: 316357 1 Tablet(s) PO QD 09/06/2018 1 Inactive potassium chloride ER 20 mEq tablet,extended release RxNorm: 723482 1 Tablet(s) PO QD 09/06/2018 09/19/2018 Inactive Duragesic 100 mcg/hr transdermal patch RxNorm: 067037 2 Application TD Q48H for pain 08/30/2018 09/28/2018 Inactive gabapentin 300 mg capsule RxNorm: 810184 TAKE ONE CAPSULE BY MO UT TWICE A DAY 08/23/2018 12/20/2018 Inactive Daliresp 500 mcg tablet RxNorm: 5897543 TAKE ONE TABLET BY MOUTH DAILY 08/23/2018 01/19/2019 Inactive Pulmicort 1 mg/2 mL suspension for nebulization RxNorm: 6168 19 USE ONE VIAL VIA NEBULIZER BY MOUTH TWICE A DAY 08/23/2018 07/11/2019 Inactive Synthroid 88 mcg tablet RxNorm: 848035 1 Tablet(s) PO QD 08/19/2018 1 Inactive Medrol (Aníbal) 4 mg tablets in a dose pack RxNorm: 576550 Tablet(s) PO take as directed 08/16/2018 09/05/2018 Inactive Relistor 150 mg tablet RxNorm: 0149497 3 Tablet(s) PO QD 08/16/2018 1 Inactive Zithromax Z-Aníbal 250 mg tablet RxNorm: 725353 Tablet(s) PO take as directed 08/16/2018 09/05/2018 Inactive cyclobenzaprine 10 mg tablet RxNorm: 450684 1 Tablet(s) PO TID as needed 08/16/2018 11/08/2018 Inactive Synthroid 88 mcg tablet RxNorm: 075080 1 Tablet(s) PO Q D NEEDS UPDATED LABS BEFORE FURTHER REFILLS 08/08/2018 08/19/2018 Inactive Premarin 0.45 mg tablet RxNorm: 605637 1 Tablet(s) PO QD 08/03/2018 0 01/31/2019 Inactive fluoxetine 20 mg capsule RxNorm: 335201 TAKE ONE CAPSULE BY BENOIT TH DAILY 08/03/2018 09/26/2018 Inactive Xtampza ER 36 mg capsule sprinkle RxNorm: 6861718 1 Capsule(s) P O BID 08/03/2018 09/01/2018 Inactive metformin ER 500 mg tablet,extended release 24 hr RxNorm: 86 0975 1 Tablet(s) PO QD 08/03/2018 10/31/2018 Inactive Symbicort 160 mcg-4.5 mcg/actuation HFA aerosol inhaler RxNo rm: 7240402 2 Puff(s) INH BID 08/03/2018 01/29/2019 Inactive Duragesic 100 mcg/hr transdermal patch RxNorm: 645851 2 Application TD Q48H for pain 07/29/2018 08/27/2018 Inactive ProAir HFA 90 mcg/actuation aerosol inhaler RxNorm: 356782 INHALE TWO PUFFS BY MOUTH EVERY 4 HOURS FOR WHEEZING OR SHORTNESS OF BREATH 07/27/201802/2018 Inactive Relistor 150 mg tablet RxNorm: 6102990 3 Tablet(s) PO QD 07/20/2018 0 08/15/2018 Inactive metformin ER 500 mg tablet,extended release 24 hr RxNorm: 86 0975 TAKE ONE TABLET BY MOUTH DAILY 07/08/2018 08/02/2018 Inactive fluoxetine 40 mg capsule RxNorm: 977754 TAKE ONE CAPSULE BY BENOIT TH EVERY MORNING 07/08/2018 10/05/2018 Inactive Xtampza ER 18 mg capsule sprinkle RxNorm: 0556697 1 Capsule(s) P O BID 07/08/2018 08/02/2018 Inactive Relistor 150 mg tablet RxNorm: 3573715 3 Tablet(s) PO QD 07/08/2018 0 07/12/2018 Inactive Synthroid 88 mcg tablet RxNorm: 208837 1 Tablet(s) PO Q D NEEDS UPDATED LABS BEFORE FURTHER REFILLS 06/23/2018 07/07/2018 Inactive fluoxetine 40 mg capsule RxNorm: 660079 TAKE ONE CAPSULE BY BENOIT TH EVERY MORNING 06/15/2018 09/26/2018 Inactive orphenadrine citrate ER 100 mg tablet,extended release RxNor m: 502780 TAKE ONE TABLET BY MOUTH TWICE A DAY FOR MUSCLE SPASM 06/15/2018 08/15/2018 Renu ctive Duragesic 100 mcg/hr transdermal patch RxNorm: 233211 2 Application TD Q48H for pain 05/30/2018 06/28/2018 Inactive ProAir HFA 90 mcg/actuation aerosol inhaler RxNorm: 977268 INHALE TWO PUFFS BY MOUTH EVERY 4 HOURS FOR WHEEZING OR SHORTNESS OF BREATH 05/19/2018 09/0 03/2018 Inactive Chantix Continuing Month Box 1 mg tablet RxNorm: 438009 TAKE ONE TABLET BY MOUTH TWICE A DAY 05/19/2018 08/15/2018 Inactive oxycodone 10 mg tablet RxNorm: 4764874 1-2 Tablet(s) PO QID as n eeded for pain 05/19/2018 07/07/2018 Inactive gabapentin 300 mg capsule RxNorm: 175564 TAKE ONE CAPSULE BY MO UT TWICE A DAY 05/18/2018 07/16/2018 Inactive ProAir HFA 90 mcg/actuation aerosol inhaler RxNorm: 855164 INHALE TWO PUFFS BY MOUTH EVERY 4 HOURS FOR WHEEZING OR SHORTNESS OF BREATH 05/04/201804/23 Inactive Augmentin 500 mg-125 mg tablet RxNorm: 702858 1 Tablet(s) PO BID 05/03/2018 Inactive oxycodone 10 mg tablet RxNorm: 8794091 1-2 Tablet(s) PO QID as n eeded for pain 04/21/2018 05/18/2018 Inactive Synthroid 88 mcg tablet RxNorm: 271197 1 Tablet(s) PO QD 04/15/2018 0 08/08/2018 Inactive Symbicort 160 mcg-4.5 mcg/actuation HFA aerosol inhaler RxNo rm: 3047160 2 Puff(s) INH BID 04/15/2018 04/10/2019 Inactive Premarin 0.45 mg tablet RxNorm: 208442 1 Tablet(s) PO QD 04/15/2018 0 08/03/2018 Inactive ProAir HFA 90 mcg/actuation aerosol inhaler RxNorm: 397590 2 Puff(s) INH Q4H prn for wheezing or shortness of breath 04/15/2018 05/03/2018 Inactive metformin ER 500 mg tablet,extended release 24 hr RxNorm: 86 0975 1 Tablet(s) PO QD 04/11/2018 07/07/2018 Inactive omeprazole 40 mg capsule,delayed release RxNorm: 726395 TAKE ONE CAPSULE BY MOUTH DAILY 04/10/2018 06/08/2018 Inactive Synthroid 88 mcg tablet RxNorm: 343955 1 Tablet(s) PO QD 04/04/2018 0 04/14/2018 Inactive Synthroid 88 mcg tablet RxNorm: 223152 1 Tablet(s) PO QD 04/04/2018 0 04/03/2018 Inactive orphenadrine citrate ER 100 mg tablet,extended release RxNor m: 296138 1 Tablet(s) PO BID for muscle spasm 04/04/2018 05/03/2018 Inactive metformin ER 500 mg tablet,extended release 24 hr RxNorm: 86 0975 1 Tablet(s) PO QD NEEDS UPDATED LABS 03/31/2018 04/11/2018 Inactive doxycycline hyclate 100 mg capsule RxNorm: 7992263 1 Capsule(s) PO BID 03/31/2018 04/09/2018 Inactive prednisone 20 mg tablet RxNorm: 119202 3 Tablet(s) PO T ID for 3 days then 1 po BID for 3 days then one daily for 3 days 03/31/2018 07/06/2018 Inactiv e Chantix Continuing Month Box 1 mg tablet RxNorm: 040731 TAKE ONE TABLET BY MOUTH TWICE A DAY 03/25/2018 03/30/2018 Inactive oxycodone 10 mg tablet RxNorm: 3035507 1-2 Tablet(s) PO QID as n eeded for pain 03/21/2018 04/20/2018 Inactive Daliresp 500 mcg tablet RxNorm: 2967547 1 Tablet(s) PO QD 03/15/2018 08/22/2018 Inactive metformin ER 500 mg tablet,extended release 24 hr RxNorm: 86 0975 1 Tablet(s) PO QD NEEDS UPDATED LABS 03/14/2018 03/31/2018 Inactive nystatin 100,000 unit/mL oral suspension RxNorm: 049986 5 Chio liter(s) PO QID 03/02/2018 03/15/2018 Inactive nystatin 100,000 unit/mL oral suspension RxNorm: 335985 5 Chio liter(s) PO QID 03/02/2018 03/01/2018 Inactive oxycodone 10 mg tablet RxNorm: 0921687 1-2 Tablet(s) PO QID as n eeded for pain 02/16/2018 03/20/2018 Inactive fluoxetine 20 mg capsule RxNorm: 356511 1 Capsule(s) PO QD 02/15/20 18 08/02/2018 Inactive metformin ER 500 mg tablet,extended release 24 hr RxNorm: 86 0975 1 Tablet(s) PO QD Needs updated labs 02/14/2018 03/14/2018 Inactive cefdinir 300 mg capsule RxNorm: 315501 1 Capsule(s) PO BID 01/27/20 18 02/04/2018 Inactive orphenadrine citrate ER 100 mg tablet,extended release RxNor m: 825618 1 Tablet(s) PO BID for muscle spasm 01/26/2018 04/04/2018 Inactive gabapentin 300 mg capsule RxNorm: 720231 1 Capsule(s) PO BID 201704/17/2018 Inactive oxycodone 10 mg tablet RxNorm: 8184843 1-2 Tablet(s) PO QID as n eeded for pain 01/17/2018 02/15/2018 Inactive Duragesic 100 mcg/hr transdermal patch RxNorm: 641103 2 Application TD Q48H for pain 01/17/2018 02/15/2018 Inactive gabapentin 300 mg capsule RxNorm: 523574 TAKE ONE CAPSULE BY MO UTH TWICE A DAY 12/20/2017 01/18/2018 Inactive fluoxetine 40 mg capsule RxNorm: 420027 TAKE ONE CAPSULE BY BENOIT TH EVERY MORNING 12/15/2017 03/14/2018 Inactive OneTouch Ultra Test strips RxNorm: TEST DAILY 11/04/2017 02/01/2018 Inactive gabapentin 300 mg capsule RxNorm: 692290 1 Capsule(s) P O TID replaces BID dosing 10/26/2017 02/22/2018 Inactive oxycodone 10 mg tablet RxNorm: 5352996 1-2 Tablet(s) PO QID as n eeded for pain 10/18/2017 01/16/2018 Inactive Duragesic 100 mcg/hr transdermal patch RxNorm: 397811 2 Application TD Q48H for pain 10/18/2017 11/16/2017 Inactive gabapentin 300 mg capsule RxNorm: 566380 1 Capsule(s) PO BID 201610/25/2017 Inactive Abilify 5 mg tablet RxNorm: 462227 1 Tablet(s) PO QAM 09/23/201702/2017 Inactive gabapentin 300 mg capsule RxNorm: 777818 1 Capsule(s) PO BID 201610/17/2017 Inactive oxycodone 10 mg tablet RxNorm: 0583450 1-2 Tablet(s) PO QID as n eeded for pain 09/15/2017 10/17/2017 Inactive Duragesic 100 mcg/hr transdermal patch RxNorm: 531922 2 Application TD Q48H for pain 09/15/2017 10/14/2017 Inactive Duragesic 100 mcg/hr transdermal patch RxNorm: 103770 2 Application TD Q48H for pain 09/15/2017 10/24/2019 Inactive oxycodone 10 mg tablet RxNorm: 5801306 1-2 Tablet(s) PO QID as n eeded for pain 09/15/2017 08/15/2018 Inactive Daliresp 500 mcg tablet RxNorm: 5395728 1 Tablet(s) PO QD 09/06/2017 03/15/2018 Inactive Ventolin HFA 90 mcg/actuation aerosol inhaler RxNorm: 427187 2 Puff(s) INH Q4H as needed 09/02/2017 05/19/2018 Inactive oxycodone 10 mg tablet RxNorm: 4728225 1-2 Tablet(s) PO QID as n eeded for pain 08/17/2017 09/14/2017 Inactive Duragesic 100 mcg/hr transdermal patch RxNorm: 318516 2 Application TD Q48H for pain 08/17/2017 09/14/2017 Inactive fluoxetine 40 mg capsule RxNorm: 015062 Capsule(s) TAKE ONE CAPSULE BY MOUTH EVERY MORNING 08/17/2017 12/14/2017 Inactive Pulmicort 1 mg/2 mL suspension for nebulization RxNorm: 6168 19 1 Unit Dose INH BID Dx: COPD (J44.9) 08/16/2017 08/22/2018 Inactive gabapentin 300 mg capsule RxNorm: 842409 1 Capsule(s) PO QHS 201610/18/2017 Inactive fluoxetine 20 mg capsule RxNorm: 965028 1 Capsule(s) PO QD 08/12/20 17 02/14/2018 Inactive Abilify 2 mg tablet RxNorm: 373842 1 Tablet(s) PO QD TA KE ONE TABLET BY MOUTH DAILY 08/12/2017 10/25/2017 Inactive metformin ER 500 mg tablet,extended release 24 hr RxNorm: 86 0975 1 Tablet(s) PO QD 08/10/2017 02/14/2018 Inactive Synthroid 112 mcg tablet RxNorm: 349935 1 Tablet(s) PO QD 08/10/2017 04/15/2018 Inactive oxycodone 10 mg tablet RxNorm: 5696816 1-2 Tablet(s) PO QID as n eeded for pain 07/19/2017 08/16/2017 Inactive Duragesic 100 mcg/hr transdermal patch RxNorm: 881753 2 Application TD Q48H for pain 07/19/2017 08/16/2017 Inactive Ventolin HFA 90 mcg/actuation aerosol inhaler RxNorm: 129334 2 Puff(s) INH Q4H as needed 07/12/2017 09/02/2017 Inactive Abilify 2 mg tablet RxNorm: 727255 1 Tablet(s) PO QD TA KE ONE TABLET BY MOUTH DAILY 07/06/2017 08/11/2017 Inactive gabapentin 800 mg tablet RxNorm: 085405 1 Tablet(s) PO TID 06/22/20 17 07/05/2017 Inactive Chantix Starting Month Box 0.5 mg (11)-1 mg (42) table ts in dose pack RxNorm: 022712 TAKE BY MOUTH INSTRUCTED - PER PACKAGE INSTRUCTIONS 06/0707/04/2017 Inactive Ventolin HFA 90 mcg/actuation aerosol inhaler RxNorm: 882674 2 Puff(s) INH Q4H as needed 05/26/2017 07/12/2017 Inactive Duragesic 100 mcg/hr transdermal patch RxNorm: 637639 2 Application TD Q48H for pain 05/19/2017 06/17/2017 Inactive oxycodone 10 mg tablet RxNorm: 8145496 1-2 Tablet(s) PO QID as n eeded for pain 05/19/2017 07/18/2017 Inactive Abilify 2 mg tablet RxNorm: 546439 TAKE ONE TABLET BY MOUTH DAILY 0 05/10/2017 07/05/2017 Inactive Synthroid 112 mcg tablet RxNorm: 883308 1 Tablet(s) PO QD 05/06/2017 08/10/2017 Inactive metformin ER 500 mg tablet,extended release 24 hr RxNorm: 86 0975 1 Tablet(s) PO QD 05/06/2017 08/10/2017 Inactive Topamax 100 mg tablet RxNorm: 685947 1 Tablet(s) PO QHS 05/06/2017 Inactive Premarin 0.45 mg tablet RxNorm: 434306 1 Tablet(s) PO QD 05/06/2017 0 04/15/2018 Inactive orphenadrine citrate ER 100 mg tablet,extended release RxNor m: 106220 1 Tablet(s) PO TID for muscle spasm--replaces methocarbamol 04/29/2017 Inactive oxycodone 10 mg tablet RxNorm: 0884330 1-2 Tablet(s) PO QID as n eeded for pain 04/21/2017 05/18/2017 Inactive Duragesic 100 mcg/hr transdermal patch RxNorm: 572099 2 Application TD Q48H for pain 04/21/2017 05/18/2017 Inactive fluoxetine 40 mg capsule RxNorm: 426565 Capsule(s) TAKE ONE CAPSULE BY MOUTH EVERY MORNING 04/20/2017 08/17/2017 Inactive Ventolin HFA 90 mcg/actuation aerosol inhaler RxNorm: 643288 2 Puff(s) INH Q4H as needed 04/05/2017 05/26/2017 Inactive Symbicort 160 mcg-4.5 mcg/actuation HFA aerosol inhaler RxNo rm: 2668747 2 Puff(s) INH BID 03/30/2017 04/15/2018 Inactive Spiriva with HandiHaler 18 mcg and inhalation capsules RxNor m: 296529 1 Capsule(s) INH QD USING HANDIHALER 03/30/2017 02/12/2019 Inactive Duragesic 100 mcg/hr transdermal patch RxNorm: 926650 2 Application TD Q48H for pain 03/18/2017 04/16/2017 Inactive oxycodone 10 mg tablet RxNorm: 1104483 1-2 Tablet(s) PO QID as n eeded for pain 03/18/2017 04/20/2017 Inactive metformin ER 500 mg tablet,extended release 24 hr RxNorm: 86 0975 Tablet(s) TAKE ONE TABLET BY MOUTH DAILY 03/01/2017 05/06/2017 Inactive Premarin 0.45 mg tablet RxNorm: 989929 Tablet(s) TAKE ONE TABLE T BY MOUTH DAILY 03/01/2017 05/06/2017 Inactive Synthroid 112 mcg tablet RxNorm: 733011 Tablet(s) TAKE ONE TABLET BY MOUTH DAILY 03/01/2017 05/06/2017 Inactive Daliresp 500 mcg tablet RxNorm: 7233603 1 Tablet(s) PO QD 03/01/2017 09/06/2017 Inactive 16.2 mg-0.1037 mg-0.0194 mg tablet RxNorm: 8108957 Tablet(s) PO PRN for gas and cramping 02/23/2017 04/28/2017 Inactive TAKE TWO TABLET S BY MOUTH THREE TIMES A DAY NEEDED FOR GAS AND CRAMPING gabapentin 800 mg tablet RxNorm: 304636 1 Tablet(s) PO TID repl aces 600mg 02/23/2017 04/28/2017 Inactive Duragesic 100 mcg/hr transdermal patch RxNorm: 783801 2 Application TD Q48H for pain 02/17/2017 03/17/2017 Inactive fluoxetine 20 mg capsule RxNorm: 403631 1 Capsule(s) PO QD 02/18/20 17 08/12/2017 Inactive oxycodone 20 mg tablet RxNorm: 8819598 1 Tablet(s) PO QID as nee ded for pain 02/17/2017 03/17/2017 Inactive Ventolin HFA 90 mcg/actuation aerosol inhaler RxNorm: 708409 INHALE TWO PUFFS BY MOUTH EVERY 4 HOURS NEEDED 02/15/2017 04/05/2017 Inactive Silvadene 1 % topical cream RxNorm: 216549 1 Application TOP BI D to burn area 02/01/2017 09/22/2017 Inactive Topamax 100 mg tablet RxNorm: 100577 TAKE ONE TABLET BY MOUTH EVERY NIGHT AT BEDTIME 01/29/2017 05/06/2017 Inactive Chantix Starting Month Box 0.5 mg (11)-1 mg (42) table ts in dose pack RxNorm: 265257 Tablet(s) PO as directed 01/29/2017 06/01/2017 Inactive Abilify 2 mg tablet RxNorm: 186443 TAKE ONE TABLET BY MOUTH DAILY 0 01/26/2017 04/25/2017 Inactive Chantix Starting Month Box 0.5 mg (11)-1 mg (42) table ts in dose pack RxNorm: 085755 Tablet(s) PO as directed 01/20/2017 01/28/2017 Inactive gabapentin 600 mg tablet RxNorm: 472574 1 Tablet(s) PO TID 01/21/20 17 02/22/2017 Inactive Chantix Continuing Month Box 1 mg tablet RxNorm: 962604 1 Table t(s) PO BID 12/31/2016 06/01/2017 Inactive Spiriva with HandiHaler 18 mcg and inhalation capsules RxNor m: 246894 INHALE THE ENTIRE CONTENTS OF 1 CAPSULE ONCE A DAY USING HANDIHALER 12/31/201607/2017 Inactive Synthroid 112 mcg tablet RxNorm: 712455 TAKE ONE TABLET BY MOUT H DAILY 12/30/2016 03/01/2017 Inactive metformin ER 500 mg tablet,extended release 24 hr RxNorm: 86 0975 TAKE ONE TABLET BY MOUTH DAILY 12/30/2016 03/01/2017 Inactive Premarin 0.45 mg tablet RxNorm: 740686 TAKE ONE TABLET BY MOUTH DAILY 12/30/2016 03/01/2017 Inactive omeprazole 40 mg capsule,delayed release RxNorm: 181697 TAKE ONE CAPSULE BY MOUTH DAILY 12/30/2016 01/25/2018 Inactive Ventolin HFA 90 mcg/actuation aerosol inhaler RxNorm: 763945 INHALE TWO PUFFS BY MOUTH EVERY 4 HOURS NEEDED 12/28/2016 02/13/2017 Inactive fluoxetine 40 mg capsule RxNorm: 244358 TAKE ONE CAPSULE BY BENOIT TH EVERY MORNING 12/15/2016 04/20/2017 Inactive Chantix Continuing Month Box 1 mg tablet RxNorm: 921080 TAKE ONE TABLET BY MOUTH TWICE A DAY 12/04/2016 12/31/2016 Inactive doxycycline hyclate 100 mg capsule RxNorm: 2628786 1 Capsule(s) PO BID 12/01/2016 12/07/2016 Inactive Levaquin 750 mg tablet RxNorm: 197357 1 Tablet(s) PO QD 12/01/2016 Inactive Abilify 2 mg tablet RxNorm: 992140 TAKE ONE TABLET BY MOUTH DAILY 0 11/25/2016 11/30/2016 Inactive Ventolin HFA 90 mcg/actuation aerosol inhaler RxNorm: 250759 INHALE TWO PUFFS BY MOUTH EVERY 4 HOURS NEEDED 11/02/2016 12/19/2016 Inactive Chantix Continuing Month Box 1 mg tablet RxNorm: 291002 Tablet(s) PO as directed 10/30/2016 12/03/2016 Inactive Symbicort 160 mcg-4.5 mcg/actuation HFA aerosol inhaler RxNo rm: 3334602 INHALE TWO PUFFS TWO TIMES A DAY 10/30/2016 03/30/2017 Inactive Abilify 2 mg tablet RxNorm: 243471 1 Tablet(s) PO QD 10/27/201611/24 Inactive amoxicillin 500 mg capsule RxNorm: 537697 1 Capsule(s) PO TID 10/1410/23/2016 Inactive amoxicillin 500 mg capsule RxNorm: 591546 1 Capsule(s) PO TID 10/1410/13/2016 Inactive Synthroid 112 mcg tablet RxNorm: 090567 TAKE ONE TABLET BY MOUT H DAILY 09/28/2016 12/29/2016 Inactive Topamax 100 mg tablet RxNorm: 588298 TAKE ONE TABLET BY MOUTH EVERY NIGHT AT BEDTIME 09/28/2016 01/28/2017 Inactive Premarin 0.45 mg tablet RxNorm: 399021 TAKE ONE TABLET BY MOUTH DAILY 09/28/2016 12/29/2016 Inactive metformin ER 500 mg tablet,extended release 24 hr RxNorm: 86 0975 TAKE ONE TABLET BY MOUTH DAILY 09/28/2016 12/29/2016 Inactive Ventolin HFA 90 mcg/actuation aerosol inhaler RxNorm: 630385 INHALE TWO PUFFS BY MOUTH EVERY 4 HOURS NEEDED 09/22/2016 10/23/2016 Inactive Pulmicort 1 mg/2 mL suspension for nebulization RxNorm: 6168 19 1 Unit Dose INH BID Dx: COPD (J44.9) 09/10/2016 08/16/2017 Inactive Pulmicort 1 mg/2 mL suspension for nebulization RxNorm: 6168 19 1 Unit Dose INH BID 09/10/2016 09/09/2016 Inactive Brovana 15 mcg/2 mL solution for nebulization RxNorm: 655053 1 Unit Dose INH BID Dx: COPD (J44.9) 09/10/2016 01/25/2018 Inactive Brovana 15 mcg/2 mL solution for nebulization RxNorm: 535794 1 Unit Dose INH BID 09/10/2016 09/09/2016 Inactive ipratropium-albuterol 0.5 mg-3 mg(2.5 mg base)/3 mL ne bulization soln RxNorm: 8748057 1 Unit Dose INH Q4H as needed Dx: COPD (J44.9) 09/10/2016 0 02/12/2019 Inactive orphenadrine citrate ER 100 mg tablet,extended release RxNor m: 662274 1 Tablet(s) PO BID for muscle spasm--replaces methocarbamol 09/09/2016 Inactive Chantix Continuing Month Box 1 mg tablet RxNorm: 365874 Tablet(s) PO as directed 09/09/2016 10/30/2016 Inactive orphenadrine citrate ER 100 mg tablet,extended release RxNor m: 328780 1 Tablet(s) PO BID for muscle spasm 09/09/2016 09/08/2016 Inactive Spiriva with HandiHaler 18 mcg and inhalation capsules RxNor m: 307966 INHALE THE ENTIRE CONTENTS OF 1 CAPSULE ONCE A DAY USING HANDIHALER 09/01/201605/2017 Inactive Daliresp 500 mcg tablet RxNorm: 8369121 1 Tablet(s) PO QD 08/27/2016 03/01/2017 Inactive prednisone 20 mg tablet RxNorm: 451968 3 Tablet(s) PO T ID for 3 days then 1 po BID for 3 days then one daily for 3 days 08/26/2016 04/28/2017 Inactiv e Wellbutrin XL 300 mg 24 hr tablet, extended release RxNorm: 306772 TAKE ONE TABLET BY MOUTH EVERY MORNING 07/29/2016 10/26/2016 Inactive gabapentin 600 mg tablet RxNorm: 656458 1 Tablet(s) PO BID 06/26/20 16 12/22/2016 Inactive fluoxetine 40 mg capsule RxNorm: 444296 TAKE ONE CAPSULE BY BENOIT TH EVERY MORNING 06/24/2016 11/20/2016 Inactive Duragesic 100 mcg/hr transdermal patch RxNorm: 971973 2 Application TD Q48H for pain 06/05/2016 07/04/2016 Inactive oxycodone 10 mg tablet RxNorm: 2126574 1-2 Tablet(s) PO QID as n eeded for pain 06/05/2016 03/17/2017 Inactive Belladonna-Phenobarbital 48 mg tablet,extended release RxNor m: 2 Tablet(s) PO TID 06/05/2016 01/19/2017 Inactive Premarin 0.45 mg tablet RxNorm: 224821 TAKE ONE TABLET BY MOUTH DAILY 05/27/2016 09/23/2016 Inactive Topamax 100 mg tablet RxNorm: 138730 TAKE ONE TABLET BY MOUTH EVERY NIGHT AT BEDTIME 05/27/2016 09/27/2016 Inactive Synthroid 112 mcg tablet RxNorm: 778565 TAKE ONE TABLET BY MOUT H DAILY 05/27/2016 09/23/2016 Inactive metformin ER 500 mg tablet,extended release 24 hr RxNorm: 86 0975 TAKE ONE TABLET BY MOUTH DAILY 05/27/2016 09/23/2016 Inactive Symbicort 160 mcg-4.5 mcg/actuation HFA aerosol inhaler RxNo rm: 3907404 INHALE TWO PUFFS TWO TIMES A DAY 05/27/2016 10/23/2016 Inactive Ventolin HFA 90 mcg/actuation aerosol inhaler RxNorm: 441131 INHALE TWO PUFFS BY MOUTH EVERY 4 HOURS NEEDED 05/21/2016 07/07/2016 Inactive omeprazole 40 mg capsule,delayed release RxNorm: 986220 1 Capsu le(s) PO QD 05/06/2016 08/03/2016 Inactive metformin ER 500 mg tablet,extended release 24 hr RxNorm: 86 0975 TAKE ONE TABLET BY MOUTH DAILY 04/23/2016 05/22/2016 Inactive methocarbamol 750 mg tablet RxNorm: 983058 2 Tablet(s) PO TID as needed for muscle spasm 04/23/2016 09/08/2016 Inactive Synthroid 112 mcg tablet RxNorm: 884577 TAKE ONE TABLET BY MOUT H DAILY 04/23/2016 05/22/2016 Inactive Spiriva with HandiHaler 18 mcg and inhalation capsules RxNor m: 691424 INHALE THE ENTIRE CONTENTS OF 1 CAPSULE ONCE A DAY USING HANDIHALER 04/09/201608/2016 Inactive Diflucan 100 mg tablet RxNorm: 698269 1 Tablet(s) PO QD 04/08/2016 Inactive doxycycline hyclate 100 mg capsule RxNorm: 4140519 1 Capsule(s) PO BID 04/08/2016 04/17/2016 Inactive doxycycline hyclate 100 mg capsule RxNorm: 2230642 1 Capsule(s) PO BID 04/08/2016 04/07/2016 Inactive Diflucan 100 mg tablet RxNorm: 252437 1 Tablet(s) PO QD 04/08/2016 Inactive ondansetron HCl 4 mg tablet RxNorm: 506166 1 Tablet(s) PO Q4H as needed for nausea and vomiting 04/08/2016 09/22/2017 Inactive gabapentin 600 mg tablet RxNorm: 220832 TAKE ONE TABLET BY MOUT H TWICE A DAY 03/24/2016 06/25/2016 Inactive Synthroid 112 mcg tablet RxNorm: 392791 TAKE ONE TABLET BY MOUT H DAILY 02/25/2016 04/22/2016 Inactive Levaquin 500 mg tablet RxNorm: 830090 1 Tablet(s) PO QD 01/23/2016 Inactive prednisone 20 mg tablet RxNorm: 950861 1 Tablet(s) PO T ID for 3 days then 1 po BID for 3 days then one daily for 3 days 01/23/2016 08/25/2016 Inactiv e [employer] Ultra Test strips RxNorm: TEST BLOOD SUGAR ONCE DAILY 250.00 01/09/2016 11/04/2017 Inactive methocarbamol 750 mg tablet RxNorm: 972381 2 Tablet(s) PO TID as needed for muscle spasm 01/09/2016 04/23/2016 Inactive lactulose 10 gram/15 mL oral solution RxNorm: 278456 [address](s) PO QD 01/09/2016 09/22/2017 Inactive TAKE 1 TABLESPOON BY MOUTH ONCE DAILY metformin ER 500 mg tablet,extended release 24 hr RxNorm: 86 0975 1 Tablet(s) PO QD 12/26/2015 04/22/2016 Inactive fluoxetine 20 mg capsule RxNorm: 843975 1 Capsule(s) PO QD 12/23/19 16 06/19/2016 Inactive Premarin 0.45 mg tablet RxNorm: 386537 TAKE ONE TABLET BY MOUTH DAILY 12/23/2015 05/20/2016 Inactive fluoxetine 40 mg capsule RxNorm: 277377 1 Capsule(s) PO QD 12/23/19 16 06/19/2016 Inactive TAKE ONE CAPSULE BY MOUTH EV JANKI MORNING azithromycin 500 mg tablet RxNorm: 084519 1 Tablet(s) PO QD 016 12/19/2015 Inactive Zofran 4 mg tablet RxNorm: 098435 1 Tablet(s) PO Q4H prn nausea /vomiting 12/13/2015 03/30/2018 Inactive azithromycin 500 mg tablet RxNorm: 574845 1 Tablet(s) PO QD 016 12/12/2015 Inactive Duragesic 100 mcg/hr transdermal patch RxNorm: 870938 2 Application TD Q48H for pain 12/09/2015 01/07/2016 Inactive oxycodone 10 mg tablet RxNorm: 1607499 1-2 Tablet(s) PO QID as n eeded for pain 12/09/2015 06/04/2016 Inactive Bactroban 2 % topical cream RxNorm: 384466 Application TOP BID 11/2208/25/2016 Inactive doxycycline hyclate 100 mg capsule RxNorm: 8570886 1 Capsule(s) PO BID 12/03/2015 12/12/2015 Inactive Topamax 100 mg tablet RxNorm: 024518 TAKE ONE TABLET BY MOUTH EVERY NIGHT AT BEDTIME 11/25/2015 05/22/2016 Inactive Symbicort 160 mcg-4.5 mcg/actuation HFA aerosol inhaler RxNo rm: 2182753 INHALE TWO PUFFS TWO TIMES A DAY 11/25/2015 05/22/2016 Inactive Synthroid 112 mcg tablet RxNorm: 149175 Tablet(s) TAKE ONE TABLET BY MOUTH DAILY 11/25/2015 02/22/2016 Inactive omeprazole 40 mg capsule,delayed release RxNorm: 684561 1 Capsu le(s) PO QD 11/12/2015 05/05/2016 Inactive oxycodone 10 mg tablet RxNorm: 5677557 1-2 Tablet(s) PO QID as n eeded for pain 11/05/2015 12/08/2015 Inactive Duragesic 100 mcg/hr transdermal patch RxNorm: 291308 2 Application TD Q48H for pain 11/05/2015 12/04/2015 Inactive omeprazole 40 mg capsule,delayed release RxNorm: 109384 1 Capsu le(s) PO QD 10/07/2015 11/11/2015 Inactive Januvia 100 mg tablet RxNorm: 616595 TAKE ONE TABLET BY MOUTH DAILY 09/11/2015 12/25/2015 Inactive Zithromax 500 mg tablet RxNorm: 962797 1 Tablet(s) PO QD 09/10/2015 1 Inactive prednisone 20 mg tablet RxNorm: 828015 1 Tablet(s) PO T ID for 3 days then 1 po BID for 3 days then one daily for 3 days 09/10/2015 08/25/2016 Inactiv e Wellbutrin XL 300 mg 24 hr tablet, extended release RxNorm: 889218 1 Tablet(s) PO QAM 09/10/2015 12/02/2015 Inactive Topamax 100 mg tablet RxNorm: 164018 TAKE ONE TABLET BY MOUTH EVERY NIGHT AT BEDTIME 09/02/2015 11/24/2015 Inactive Synthroid 112 mcg tablet RxNorm: 931549 TAKE ONE TABLET BY MOUT H DAILY 09/02/2015 11/25/2015 Inactive methocarbamol 750 mg tablet RxNorm: 774934 2 Tablet(s) PO TID as needed for muscle spasm 08/15/2015 01/09/2016 Inactive Wellbutrin XL 150 mg 24 hr tablet, extended release RxNorm: 235733 TAKE ONE TABLET BY MOUTH EVERY MORNING 08/13/2015 08/13/2015 Inactive gabapentin 600 mg tablet RxNorm: 155455 1 Tablet(s) PO BID 08/13/20 15 02/08/2016 Inactive Wellbutrin XL 300 mg 24 hr tablet, extended release RxNorm: 717457 1 Tablet(s) PO QAM 08/06/2015 09/09/2015 Inactive Wellbutrin XL 150 mg 24 hr tablet, extended release RxNorm: 517518 1 Tablet(s) PO QAM 07/18/2015 08/05/2015 Inactive prednisone 20 mg tablet RxNorm: 612476 1 Tablet(s) PO BID 07/18/2015 07/22/2015 Inactive doxycycline hyclate 100 mg tablet,delayed release RxNorm: 43 4018 1 Tablet(s) PO BID 07/18/2015 07/27/2015 Inactive pravastatin 40 mg tablet RxNorm: 756690 1 Tablet(s) PO QD NEEDS FASTING LAB 07/15/2015 07/14/2015 Inactive pravastatin 40 mg tablet RxNorm: 695832 1 Tablet(s) PO QD NEEDS FASTING LAB 07/15/2015 01/25/2018 Inactive Ventolin HFA 90 mcg/actuation aerosol inhaler RxNorm: 837094 2 Puff(s) INH Q4H 07/08/2015 07/07/2015 Inactive prn Premarin 0.45 mg tablet RxNorm: 533689 1 Tablet(s) PO QD 07/01/2015 0 12/22/2015 Inactive pravastatin 40 mg tablet RxNorm: 734751 1 Tablet(s) PO QD NEEDS FASTING LAB 06/14/2015 07/15/2015 Inactive Ventolin HFA 90 mcg/actuation aerosol inhaler RxNorm: 8688664 2 Puff(s) INH Q4H 06/06/2015 07/08/2015 Inactive prn albuterol sulfate 2.5 mg/3 mL (0.083 %) solution for n ebulization RxNorm: 455762 1 Unit Dose INH QID 05/30/2015 No Stop Date Active Duragesic 100 mcg/hr transdermal patch RxNorm: 370687 2 Application TD Q48H for pain 04/29/2015 05/28/2015 Inactive gabapentin 600 mg tablet RxNorm: 579134 1 Tablet(s) PO BID 04/11/20 15 08/13/2015 Inactive Onglyza 5 mg tablet RxNorm: 973353 1 Tablet(s) PO QD for blood suga r 04/10/2015 04/15/2015 Inactive [Brand Copay Card: RxBIN:[id number] N:CRISTIANA RxGRP:[id number] ID#:[id number]] methocarbamol 750 mg tablet RxNorm: 276012 2 Tablet(s) PO TID as needed for muscle spasm 03/28/2015 08/15/2015 Inactive pravastatin 40 mg tablet RxNorm: 898790 1 Tablet(s) PO QD 03/19/2015 03/18/2015 Inactive pravastatin 40 mg tablet RxNorm: 375150 1 Tablet(s) PO QD 03/19/2015 06/14/2015 Inactive lactulose 10 gram/15 mL oral solution RxNorm: 396931 [address]s) PO QD 03/07/2015 01/09/2016 Inactive TAKE 1 TABLESPOON BY MOUTH ONCE DAILY oxycodone 20 mg tablet RxNorm: 9957662 1 Tablet(s) PO QID as nee ded for pain 03/05/2015 07/08/2015 Inactive Topamax 100 mg tablet RxNorm: 090482 1 Tablet(s) PO QHS TAKE ONE TABLET BY MOUTH AT BEDTIME 02/25/2015 02/12/2019 Inactive metformin ER 500 mg tablet,extended release 24 hr RxNorm: 86 0975 1 Tablet(s) PO QD 02/11/2015 03/04/2015 Inactive take one tablet by mouth every day Daliresp 500 mcg tablet RxNorm: 3536089 1 Tablet(s) PO QD 02/11/2015 08/09/2015 Inactive Endocet 10 mg-325 mg tablet RxNorm: 8737394 1 Tablet(s) PO Q4H as needed for pain 01/23/2015 01/23/2015 Inactive gabapentin 600 mg tablet RxNorm: 659602 1 Tablet(s) PO BID 01/23/20 15 04/11/2015 Inactive methocarbamol 750 mg tablet RxNorm: 824342 2 Tablet(s) PO TID as needed for muscle spasm 01/15/2015 02/13/2015 Inactive fluoxetine 40 mg capsule RxNorm: 051283 1 Capsule(s) PO QD 01/14/20 15 12/23/2015 Inactive TAKE ONE CAPSULE BY MOUTH EV JANKI MORNING fluoxetine 20 mg capsule RxNorm: 735574 1 Capsule(s) PO QD 01/14/20 15 12/23/2015 Inactive Premarin 0.45 mg tablet RxNorm: 121384 1 Tablet(s) PO QD 01/02/2015 0 07/01/2015 Inactive Endocet 10 mg-325 mg tablet RxNorm: 9334745 1-2 Tablet(s) PO Q4H 02/12/2019 Inactive PRN PAIN Duragesic 100 mcg/hr transdermal patch RxNorm: 201686 2 Application TD Q48H for pain 12/25/2014 01/23/2015 Inactive Topamax 100 mg tablet RxNorm: 097524 1 Tablet(s) PO QHS TAKE ONE TABLET BY MOUTH AT BEDTIME 12/25/2014 02/24/2015 Inactive Tudorza Pressair 400 mcg/actuation breath activated RxNorm: 8857825 1 BID INHALE ONE PUFF INTO LUNGS TWO TIMES A DAY 12/17/2014 05/15/2015 Inactive Endocet 10 mg-325 mg tablet RxNorm: 2014329 1-2 Tablet(s) PO Q4H 12/19/2014 Inactive PRN PAIN Duragesic 100 mcg/hr transdermal patch RxNorm: 865951 2 Application TD Q48H for pain 11/20/2014 12/24/2014 Inactive OneTouch Ultra Test strips RxNorm: TEST BLOOD SUGAR ONCE DAILY 250.00 11/16/2014 01/08/2016 Inactive omeprazole 40 mg capsule,delayed release RxNorm: 430461 1 Capsu le(s) PO QD 11/13/2014 11/12/2015 Inactive metformin ER 500 mg tablet,extended release 24 hr RxNorm: 86 0975 1 Tablet(s) PO QD 11/12/2014 02/11/2015 Inactive take one tablet by mouth every day Symbicort 160 mcg-4.5 mcg/actuation HFA aerosol inhaler RxNo rm: 1255473 2 Puff(s) INH BID 11/12/2014 03/11/2015 Inactive INHALE 2 PUFFS O RALLY TWO TIMES A DAY gabapentin 800 mg tablet RxNorm: 343444 1 Tablet(s) PO QD TAKE ONE TABLET BY MOUTH ONCE A DAY 10/22/2014 01/01/2015 Inactive Endocet 10 mg-325 mg tablet RxNorm: 8422936 1-2 Tablet(s) PO Q4H 11/15/2014 Inactive PRN PAIN Duragesic 100 mcg/hr transdermal patch RxNorm: 931415 2 Application TD Q48H for pain 10/17/2014 11/19/2014 Inactive gabapentin 800 mg tablet RxNorm: 428560 1 Tablet(s) PO QD TAKE ONE TABLET BY MOUTH ONCE A DAY 10/04/2014 10/21/2014 Inactive Premarin 0.9 mg tablet RxNorm: 449702 1 Tablet(s) PO QD TAKE ONE TABLET BY MOUTH ONCE A DAY 10/04/2014 01/01/2015 Inactive Spiriva with HandiHaler 18 mcg & inhalation capsules RxNorm: 578660 1 Capsule(s) INH QD 10/03/2014 04/30/2015 Inactive Levaquin 500 mg tablet RxNorm: 729466 1 Tablet(s) PO QD 10/03/2014 Inactive prednisone 20 mg tablet RxNorm: 262061 1 Tablet(s) PO QD 10/03/2014 1 12/09/2013 Inactive Duragesic 100 mcg/hr transdermal patch RxNorm: 003517 2 Application TD Q48H for pain 09/18/2014 10/16/2014 Inactive Endocet 10 mg-325 mg tablet RxNorm: 5417784 1-2 Tablet(s) PO Q4H 10/16/2014 Inactive PRN PAIN Synthroid 112 mcg tablet RxNorm: 703806 1 Tablet(s) QD 09/10/2014 Inactive Synthroid 112 mcg tablet RxNorm: 191866 TAKE ONE TABLET BY MOUTH ONE TIME A DAY. NEEDS LABS 09/10/2014 02/06/2015 Inactive omeprazole 40 mg capsule,delayed release RxNorm: 527793 1 Capsu le(s) PO QD 09/03/2014 11/13/2014 Inactive omeprazole 40 mg capsule,delayed release RxNorm: 115844 1 Capsu le(s) PO QD 09/03/2014 09/02/2014 Inactive Spiriva with HandiHaler 18 mcg & inhalation capsules RxNorm: 498128 1 Capsule(s) INH QD 08/27/2014 10/02/2014 Inactive gabapentin 600 mg tablet RxNorm: 661901 1 Tablet(s) PO BID 08/27/20 14 10/22/2014 Inactive Endocet 10 mg-325 mg tablet RxNorm: 6006526 1-2 Tablet(s) PO Q4H 09/17/2014 Inactive PRN PAIN fentanyl 100 mcg/hr transdermal patch RxNorm: 431595 1 Unit Dos e TD QD 08/21/2014 09/19/2014 Inactive Daliresp 500 mcg tablet RxNorm: 6050365 1 Tablet(s) PO QD 08/13/2014 02/11/2015 Inactive Synthroid 112 mcg tablet RxNorm: 011700 TAKE ONE TABLET BY MOUTH ONE TIME A DAY. NEEDS LABS 08/10/2014 09/10/2014 Inactive Endocet 10 mg-325 mg tablet RxNorm: 1163425 1-2 Tablet(s) PO Q4H 08/17/2014 Inactive PRN PAIN Duragesic 100 mcg/hr transdermal patch RxNorm: 501797 2 Application TD Q48H for pain 07/19/2014 09/17/2014 Inactive fluoxetine 40 mg capsule RxNorm: 252665 1 Capsule(s) PO QD 07/17/20 14 01/14/2015 Inactive TAKE ONE CAPSULE BY MOUTH EV JANKI MORNING fluoxetine 20 mg capsule RxNorm: 665439 1 Capsule(s) PO QD 07/17/20 14 01/14/2015 Inactive Spiriva with HandiHaler 18 mcg & inhalation capsules RxNorm: 454729 1 Capsule(s) INH QD 07/17/2014 08/26/2014 Inactive INHALE CONTENTS OF 1 CAPSULE(S) WITH HANDIHALER ONCE DAILY Zofran 4 mg tablet RxNorm: 237212 1 Tablet(s) PO Q4H prn nausea 07/25/2014 Inactive Synthroid 112 mcg tablet RxNorm: 847931 1 Tablet(s) PO QD 07/09/2014 07/09/2014 Inactive methocarbamol 750 mg tablet RxNorm: 247675 2 Tablet(s) PO TID as needed for muscle spasm 07/09/2014 09/06/2014 Inactive Synthroid 112 mcg tablet RxNorm: 012514 1 Tablet(s) PO QD - nee d labs 07/09/2014 08/07/2014 Inactive Medrol (Aníbal) 4 mg tablets in a dose pack RxNorm: 588133 6 Tablet(s) PO QD --then as directed 07/03/2014 07/08/2014 Inactive Tudorza Pressair 400 mcg/actuation breath activated RxNorm: 0711819 1 Puff(s) INH BID 07/03/2014 12/17/2014 Inactive cefdinir 300 mg capsule RxNorm: 046069 1 Capsule(s) PO BID 07/03/20 14 07/12/2014 Inactive Topamax 100 mg tablet RxNorm: 459287 Tablet(s) TAKE ONE TABLET BY MOUTH AT BEDTIME 07/02/2014 02/25/2015 Inactive Duragesic 100 mcg/hr transdermal patch RxNorm: 548116 2 Application TD Q48H for pain 06/25/2014 07/18/2014 Inactive Endocet 10 mg-325 mg tablet RxNorm: 6210075 1-2 Tablet(s) PO Q4H 07/18/2014 Inactive PRN PAIN metformin ER 500 mg tablet,extended release 24 hr RxNorm: 86 0975 1 Tablet(s) PO QD Needs labs 06/18/2014 07/01/2014 Inactive take one tablet by mouth every day Duragesic 100 mcg/hr transdermal patch RxNorm: 416931 2 Application TD Q48H for pain 05/22/2014 06/24/2014 Inactive Synthroid 112 mcg tablet RxNorm: 440379 1 Tablet(s) PO QD 05/22/2014 07/09/2014 Inactive Endocet 10 mg-325 mg tablet RxNorm: 1896317 1-2 Tablet(s) PO Q4H 06/20/2014 Inactive PRN PAIN Endocet 10 mg-325 mg tablet RxNorm: 9315525 1-2 Tablet(s) PO Q4H 05/21/2014 Inactive PRN PAIN Duragesic 100 mcg/hr transdermal patch RxNorm: 907216 2 Application TD Q48H for pain 04/25/2014 05/21/2014 Inactive Daliresp 500 mcg tablet RxNorm: 1395980 1 Tablet(s) PO QD 04/24/2014 08/13/2014 Inactive Symbicort 160 mcg-4.5 mcg/actuation HFA aerosol inhaler RxNo rm: 7485640 2 Puff(s) INH BID 04/24/2014 08/21/2014 Inactive INHALE 2 PUFFS O RALLY TWO TIMES A DAY metformin ER 500 mg tablet,extended release 24 hr RxNorm: 86 0975 1 Tablet(s) PO QD 04/24/2014 11/12/2014 Inactive TAKE ONE TABLET BY MOUTH EVERY DAY [AttnRPh:Saving Apply/Adjudicate RxGRP:LDMGRP RxBIN:[id number] RxPCN:2012 PCode:01 ID#:[id number]] Symbicort 160 mcg-4.5 mcg/actuation HFA aerosol inhaler RxNo rm: 8645570 2 Puff(s) INH BID 04/24/2014 11/12/2014 Inactive INHALE 2 PUFFS O RALLY TWO TIMES A DAY Premarin 0.9 mg tablet RxNorm: 062703 1 Tablet(s) PO QD 04/24/2014 Inactive TAKE ONE TABLET BY MOUTH EVERY DAY metformin ER 500 mg tablet,extended release 24 hr RxNorm: 86 0975 1 Tablet(s) PO QD Needs labs 04/24/2014 06/18/2014 Inactive TAKE ONE TABLET BY MOUTH EVERY DAY [AttnRPh:Saving Apply/Adjudicate RxGRP:LDMGRP RxBIN:[id number] RxPCN:2012 PCode:01 ID#:[id number]] gabapentin 800 mg tablet RxNorm: 331673 1 Tablet(s) PO QD 04/24/2014 10/04/2014 Inactive TAKE ONE TABLET BY MOUTH EVERY DAY Topamax 100 mg tablet RxNorm: 723479 1 Tablet(s) PO QHS 04/17/2014 Inactive Topamax 100 mg tablet RxNorm: 626626 TAKE ONE TABLET BY MOUTH A T BEDTIME 04/17/2014 07/01/2014 Inactive Tudorza Pressair 400 mcg/actuation breath activated RxNorm: 7565696 1 Puff(s) INH BID 04/11/2014 07/02/2014 Inactive Duragesic 100 mcg/hr transdermal patch RxNorm: 888285 2 Application TD Q48H for pain 03/27/2014 04/24/2014 Inactive Endocet 10 mg-325 mg tablet RxNorm: 7280428 1-2 Tablet(s) PO Q4H 04/24/2014 Inactive PRN PAIN Robaxin 750 mg tablet RxNorm: 017111 2 Tablet(s) PO TID as need ed for spasm 02/23/2014 03/28/2015 Inactive Duragesic 100 mcg/hr transdermal patch RxNorm: 713743 2 Application TD Q48H for pain 02/23/2014 No Stop Date Active Endocet 10 mg-325 mg tablet RxNorm: 8565600 1-2 Tablet(s) PO Q4H 03/23/2014 Inactive PRN PAIN Synthroid 112 mcg tablet RxNorm: 108930 1 Tablet(s) PO QD TAKE ONE TABLET BY MOUTH EVERY DAY 02/15/2014 05/22/2014 Inactive Zithromax 500 mg tablet RxNorm: 305199 1 Tablet(s) PO QD 01/30/2014 0 02/05/2014 Inactive Diflucan 100 mg tablet RxNorm: 528409 1 Tablet(s) PO QD 01/30/2014 Inactive prednisone 20 mg tablet RxNorm: 457739 1 Tablet(s) PO BID 01/30/2014 02/05/2014 Inactive fluoxetine 40 mg capsule RxNorm: 134118 1 Capsule(s) PO QD 01/23/20 14 07/16/2014 Inactive TAKE ONE CAPSULE BY MOUTH EV JANKI MORNING fluoxetine 40 mg capsule RxNorm: 691489 1 Capsule(s) PO QD 01/23/20 14 07/17/2014 Inactive TAKE ONE CAPSULE BY MOUTH EV JANKI MORNING cefdinir 300 mg capsule RxNorm: 055041 1 Capsule(s) PO BID 01/16/20 14 01/29/2014 Inactive Zithromax 500 mg tablet RxNorm: 046716 1 Tablet(s) PO QD 01/16/2014 0 01/22/2014 Inactive prednisone 20 mg tablet RxNorm: 894937 1 Tablet(s) PO BID 01/16/2014 01/22/2014 Inactive Spiriva with HandiHaler 18 mcg and inhalation capsules RxNor m: 745094 1 Capsule(s) INH QD 12/18/2013 07/17/2014 Inactive INHALE CONTENT S OF 1 CAPSULE(S) WITH HANDIHALER ONCE DAILY fluoxetine 20 mg capsule RxNorm: 291710 1 Capsule(s) PO QD 12/18/19 14 06/15/2014 Inactive Spiriva with HandiHaler 18 mcg & inhalation capsules RxNorm: 560809 1 Capsule(s) INH QD 12/18/2013 06/15/2014 Inactive INHALE CONTENTS OF 1 CAPSULE(S) WITH HANDIHALER ONCE DAILY fluoxetine 20 mg capsule RxNorm: 376664 1 Capsule(s) PO QD 12/18/19 14 07/17/2014 Inactive cefdinir 300 mg capsule RxNorm: 434821 2 Capsule(s) PO QD 12/12/2013 12/21/2013 Inactive Duragesic 100 mcg/hr transdermal patch RxNorm: 374461 2 Application TD Q48H for pain 12/08/2013 12/07/2013 Inactive Topamax 100 mg tablet RxNorm: 713881 1 Tablet(s) PO QHS 12/04/2013 Inactive Endocet 10 mg-325 mg tablet RxNorm: 1490763 1-2 Tablet(s) PO Q4H 12/26/2013 Inactive PRN PAIN Robaxin 750 mg tablet RxNorm: 916885 2 Tablet(s) PO TID as need ed for spasm 11/07/2013 01/05/2014 Inactive gabapentin 800 mg tablet RxNorm: 441238 1 Tablet(s) PO QD 10/16/2013 04/24/2014 Inactive TAKE ONE TABLET BY MOUTH EVERY DAY Symbicort 160 mcg-4.5 mcg/actuation HFA aerosol inhaler RxNo rm: 2073944 2 Puff(s) INH BID 10/16/2013 04/24/2014 Inactive INHALE 2 PUFFS O RALLY TWO TIMES A DAY Premarin 0.9 mg tablet RxNorm: 650332 1 Tablet(s) PO QD 10/16/2013 Inactive TAKE ONE TABLET BY MOUTH EVERY DAY metformin ER 500 mg tablet,extended release 24 hr RxNorm: 86 0975 1 Tablet(s) PO QD 10/16/2013 04/24/2014 Inactive TAKE ONE TABLET BY MOUTH EVERY DAY Daliresp 500 mcg tablet RxNorm: 8984244 1 Tablet(s) PO QD 10/16/2013 04/24/2014 Inactive Robaxin 750 mg tablet RxNorm: 993696 2 Tablet(s) PO TID as need ed for spasm 10/10/2013 11/06/2013 Inactive Duragesic 100 mcg/hr transdermal patch RxNorm: 302915 2 Application TD Q48H for pain 10/09/2013 No Stop Date Active Soma 350 mg tablet RxNorm: 659433 1 Tablet(s) PO TID 09/27/201310/09 Inactive TAKE ONE TABLET BY MOUTH THREE TIMES A D AY lactulose 10 gram/15 mL oral solution RxNorm: 446672 [address](s) PO QD 09/13/2013 03/07/2015 Inactive TAKE 1 TABLESPOON BY MOUTH ONCE DAILY Duragesic 100 mcg/hr transdermal patch RxNorm: 346117 2 Application TD Q48H for pain 09/06/2013 No Stop Date Active Endocet 10 mg-325 mg tablet RxNorm: 6237979 1-2 Tablet(s) PO Q4H 09/27/2013 Inactive PRN PAIN lancets 28 gauge RxNorm: Miscellaneous As needed for blo od glucose sticks 08/24/2013 No Stop Date Active 16.2 mg-0.1037 mg-0.0194 mg tablet RxNorm: 5986006 Tablet(s) PO PRN for gas and cramping 08/24/2013 01/19/2017 Inactive TAKE TWO TABLET S BY MOUTH THREE TIMES A DAY NEEDED FOR GAS AND CRAMPING Topamax 100 mg tablet RxNorm: 265318 1 Tablet(s) PO QHS 07/31/2013 Inactive Diflucan 100 mg tablet RxNorm: 214888 1 Tablet(s) PO QD 07/27/2013 Inactive cefdinir 300 mg capsule RxNorm: 934332 1 Capsule(s) PO BID 07/26/20 13 08/08/2013 Inactive Daliresp 500 mcg tablet RxNorm: 2515724 1 Tablet(s) PO QD 07/25/2013 10/15/2013 Inactive fluoxetine 40 mg capsule RxNorm: 453602 1 Capsule(s) PO QD 07/25/20 13 01/22/2014 Inactive TAKE ONE CAPSULE BY MOUTH EV JANKI MORNING Senokot-S 8.6 mg-50 mg tablet RxNorm: 5166506 1 Tablet(s) PO BID 10/25/2013 Inactive doxycycline hyclate 100 mg capsule RxNorm: 0817860 1 Capsule(s) PO BID 06/28/2013 07/07/2013 Inactive prednisone 20 mg tablet RxNorm: 173416 1 Tablet(s) PO BID 06/28/2013 07/04/2013 Inactive Zofran 4 mg tablet RxNorm: 976705 1 Tablet(s) PO Q4H prn nausea 03/201307/05/2013 Inactive Spiriva with HandiHaler 18 mcg & inhalation capsules RxNorm: 811315 1 Capsule(s) INH QD 06/26/2013 12/18/2013 Inactive INHALE CONTENTS OF 1 CAPSULE(S) WITH HANDIHALER ONCE DAILY Synthroid 112 mcg tablet RxNorm: 522968 1 Tablet(s) PO QD TAKE ONE TABLET BY MOUTH EVERY DAY 06/19/2013 02/15/2014 Inactive fluoxetine 20 mg capsule RxNorm: 957604 1 Capsule(s) PO QD 06/19/20 13 12/18/2013 Inactive Ventolin HFA 90 mcg/actuation Aerosol Inhaler RxNorm: 3335489 2 Puff(s) INH Q4H 06/05/2013 No Stop Date Active prn Soma 350 mg tablet RxNorm: 552313 1 Tablet(s) PO TID 06/05/201307/04 Inactive TAKE ONE TABLET BY MOUTH THREE TIMES A D AY prednisone 20 mg tablet RxNorm: 331487 1 Tablet(s) PO QD 05/31/2013 0 06/06/2013 Inactive Topamax 100 mg tablet RxNorm: 800732 1 Tablet(s) PO QHS 05/22/2013 Inactive Levaquin 500 mg tablet RxNorm: 393551 1 Tablet(s) PO QD 05/03/2013 Inactive Diflucan 100 mg tablet RxNorm: 168717 1 Tablet(s) PO QD 05/03/2013 Inactive Daliresp 500 mcg tablet RxNorm: 2647924 1 Tablet(s) PO QD 05/01/2013 07/24/2013 Inactive Daliresp 500 mcg tablet RxNorm: 2852132 1 Tablet(s) PO QD 05/01/2013 04/30/2013 Inactive gabapentin 800 mg tablet RxNorm: 834692 1 Tablet(s) PO QD 04/10/2013 10/06/2013 Inactive TAKE ONE TABLET BY MOUTH EVERY DAY metformin ER 500 mg tablet,extended release 24 hr RxNorm: 86 0977 1 Tablet(s) PO QD 04/10/2013 10/06/2013 Inactive TAKE ONE TABLET BY MOUTH EVERY DAY Premarin 0.9 mg tablet RxNorm: 884901 1 Tablet(s) PO QD 04/10/2013 Inactive TAKE ONE TABLET BY MOUTH EVERY DAY Symbicort 160 mcg-4.5 mcg/actuation HFA aerosol inhaler RxNo rm: 8542161 2 Puff(s) INH BID 04/10/2013 10/06/2013 Inactive INHALE 2 PUFFS O RALLY TWO TIMES A DAY Synthroid 112 mcg tablet RxNorm: 584202 1 Tablet(s) PO QD TAKE ONE TABLET BY MOUTH EVERY DAY 04/10/2013 06/18/2013 Inactive Ventolin HFA 90 mcg/actuation Aerosol Inhaler RxNorm: 688927 2 Puff(s) INH Q4H 04/10/2013 No Stop Date Active prn fentanyl 100 mcg/hr transdermal patch RxNorm: 382718 1 Unit Dos e TD QD 04/03/2013 05/02/2013 Inactive Endocet 10 mg-325 mg tablet RxNorm: 5686023 1-2 Tablet(s) PO Q4H 05/02/2013 Inactive PRN PAIN Topamax 100 mg tablet RxNorm: 189388 1 Tablet(s) PO QHS 03/13/2013 Inactive Reglan 10 mg tablet RxNorm: 596078 1 Tablet(s) PO QID b efore meals and at bedtime 03/13/2013 04/09/2015 Inactive fluoxetine 20 mg capsule RxNorm: 646909 1 Capsule(s) PO QD 02/28/20 13 05/27/2013 Inactive Ventolin HFA 90 mcg/actuation Aerosol Inhaler RxNorm: 731925 2 Puff(s) INH Q4H 02/13/2013 No Stop Date Active prn fluoxetine 40 mg capsule RxNorm: 512993 1 Capsule(s) PO QD 01/31/20 13 07/24/2013 Inactive TAKE ONE CAPSULE BY MOUTH EV JANKI MORNING Soma 350 mg tablet RxNorm: 325336 1 Tablet(s) PO TID 01/20/201302/18 Inactive TAKE ONE TABLET BY MOUTH THREE TIMES A D AY Endocet 10 mg-325 mg tablet RxNorm: 9944845 1-2 Tablet(s) PO Q4H 02/06/2013 Inactive PRN PAIN MS Contin 200 mg tablet,extended release RxNorm: 483873 1 Table t(s) PO BID 01/18/2013 02/06/2013 Inactive Ventolin HFA 90 mcg/actuation Aerosol Inhaler RxNorm: 396807 2 Puff(s) INH Q4H 01/04/2013 No Stop Date Active prn Spiriva with HandiHaler 18 mcg & inhalation capsules RxNorm: 983821 1 Capsule(s) INH QD 12/29/2012 06/25/2013 Inactive INHALE CONTENTS OF 1 CAPSULE(S) WITH HANDIHALER ONCE DAILY Spiriva with HandiHaler 18 mcg & inhalation capsules RxNorm: 173881 1 Capsule(s) INH QD 12/26/2012 12/28/2012 Inactive INHALE CONTENTS OF 1 CAPSULE(S) WITH HANDIHALER ONCE DAILY Synthroid 112 mcg tablet RxNorm: 312430 Tablet(s) PO TA KE ONE TABLET BY MOUTH EVERY DAY 12/26/2012 04/09/2013 Inactive Endocet 10 mg-325 mg tablet RxNorm: 3294005 1-2 Tablet(s) PO Q4H 01/17/2013 Inactive PRN PAIN MS Contin 200 mg tablet,extended release RxNorm: 487470 1 Table t(s) PO BID 12/21/2012 01/17/2013 Inactive fluoxetine 20 mg capsule RxNorm: 712787 1 Capsule(s) PO QD 12/06/19 13 02/26/2013 Inactive Synthroid 112 mcg tablet RxNorm: 028282 1 Tablet(s) PO QD 12/06/2012 02/12/2019 Inactive TAKE ONE TABLET BY MOUTH EVERY DAY Ventolin HFA 90 mcg/actuation Aerosol Inhaler RxNorm: 528235 2 Puff(s) INH Q4H 12/06/2012 No Stop Date Active prn Reglan 10 mg tablet RxNorm: 058529 1 Tablet(s) PO QID b efore meals and at bedtime 11/24/2012 03/12/2013 Inactive Topamax 100 mg tablet RxNorm: 550839 1 Tablet(s) PO QHS 11/16/2012 Inactive Ventolin HFA 90 mcg/actuation Aerosol Inhaler RxNorm: 766628 2 Puff(s) INH Q4H 11/09/2012 No Stop Date Active prn gabapentin 800 mg tablet RxNorm: 253597 1 Tablet(s) PO QD 10/27/2012 04/09/2013 Inactive TAKE ONE TABLET BY MOUTH EVERY DAY metformin ER 500 mg tablet,extended release 24 hr RxNorm: 86 0977 1 Tablet(s) PO QD 10/27/2012 04/09/2013 Inactive TAKE ONE TABLET BY MOUTH EVERY DAY Symbicort 160 mcg-4.5 mcg/actuation HFA Aerosol Inhaler RxNo rm: 3950296 2 Puff(s) INH BID 10/27/2012 04/09/2013 Inactive INHALE 2 PUFFS O RALLY TWO TIMES A DAY Premarin 0.9 mg tablet RxNorm: 585869 1 Tablet(s) PO QD 10/27/2012 Inactive TAKE ONE TABLET BY MOUTH EVERY DAY Endocet 10 mg-325 mg tablet RxNorm: 7202732 1-2 Tablet(s) PO Q4H 11/24/2012 Inactive PRN PAIN MS Contin 200 mg tablet,extended release RxNorm: 566505 1 Table t(s) PO BID 10/26/2012 11/24/2012 Inactive Soma 350 mg tablet RxNorm: 342283 1 Tablet(s) PO TID 10/04/201211/02 Inactive TAKE ONE TABLET BY MOUTH THREE TIMES A D AY Ventolin HFA 90 mcg/actuation Aerosol Inhaler RxNorm: 046176 2 Puff(s) INH Q4H 10/03/2012 No Stop Date Active prn Daliresp 500 mcg tablet RxNorm: 8553936 1 Tablet(s) PO QD 09/28/2012 09/27/2012 Inactive Daliresp 500 mcg tablet RxNorm: 8335991 1 Tablet(s) PO QD 09/28/2012 04/25/2013 Inactive fluoxetine 20 mg capsule RxNorm: 513810 1 Capsule(s) PO QD 09/05/2012/06/2012 Inactive Topamax 50 mg tablet RxNorm: 160619 Tablet(s) PO for 1w k then 1 po q HS for 1wk then 2 po q HS 08/29/2012 09/27/2012 Inactive TAKE 1/2 TABLET BY MOUTH AT BEDTIME FOR 1 WEEK, THEN 1 TABLET AT BEDTIME FOR 1 WEEK, THEN 2 TABLETS AT BEDTIME Topamax 100 mg tablet RxNorm: 002478 1 Tablet(s) PO QHS 08/29/2012 Inactive Ventolin HFA 90 mcg/actuation Aerosol Inhaler RxNorm: 093087 2 Puff(s) INH Q4H 08/19/2012 No Stop Date Active prn Ventolin HFA 90 mcg/actuation Aerosol Inhaler RxNorm: 879550 2 Puff(s) INH Q4H 08/15/2012 No Stop Date Active prn Synthroid 112 mcg tablet RxNorm: 873769 1 Tablet(s) PO QD 08/10/2012 11/07/2012 Inactive TAKE ONE TABLET BY MOUTH EVERY DAY Synthroid 112 mcg tablet RxNorm: 298792 1 Tablet(s) PO QD 08/01/2012 08/09/2012 Inactive TAKE ONE TABLET BY MOUTH EVERY DAY Reglan 10 mg tablet RxNorm: 791328 1 Tablet(s) PO QID b efore meals and at bedtime 08/01/2012 11/23/2012 Inactive fluoxetine 40 mg capsule RxNorm: 131739 1 Capsule(s) PO QD 08/01/2001/27/2013 Inactive TAKE ONE CAPSULE BY MOUTH EV JANKI MORNING Ventolin HFA 90 mcg/actuation Aerosol Inhaler RxNorm: 792518 2 Puff(s) INH Q4H 08/01/2012 No Stop Date Active prn Soma 350 mg tablet RxNorm: 457127 1 Tablet(s) PO TID 07/20/201208/18 Inactive TAKE ONE TABLET BY MOUTH THREE TIMES A D AY Spiriva with HandiHaler 18 mcg & inhalation capsules RxNorm: 396417 1 Capsule(s) INH 07/01/2012 12/25/2012 Inactive INHALE CONTENTS OF 1 CAPSULE(S) WITH HANDIHALER ONCE DAILY Zithromax 250 mg Tab RxNorm: 425357 2 Tablet(s) PO QD 06/28/201206/22 Inactive MS Contin 200 mg tablet,extended release RxNorm: 002634 1 Table t(s) PO BID 06/28/2012 07/27/2012 Inactive Endocet 10 mg-325 mg tablet RxNorm: 7277826 1-2 Tablet(s) PO Q4H 07/27/2012 Inactive PRN PAIN Topamax 100 mg tablet RxNorm: 729994 1 Tablet(s) PO QHS 06/28/2012 Inactive 16.2 mg-0.1037 mg-0.0194 mg tablet RxNorm: 7426405 Tablet(s) PO PRN for gas and cramping 06/08/2012 08/23/2013 Inactive TAKE TWO TABLET S BY MOUTH THREE TIMES A DAY NEEDED FOR GAS AND CRAMPING Ventolin HFA 90 mcg/actuation Aerosol Inhaler RxNorm: 820024 2 Puff(s) INH Q4H 05/23/2012 No Stop Date Active prn Ventolin HFA 90 mcg/actuation Aerosol Inhaler RxNorm: 135391 2 Puff(s) INH Q4H 05/11/2012 No Stop Date Active prn Synthroid 112 mcg tablet RxNorm: 102683 1 Tablet(s) PO QD 05/09/2012 07/31/2012 Inactive TAKE ONE TABLET BY MOUTH EVERY DAY gabapentin 800 mg tablet RxNorm: 120546 1 Tablet(s) PO QD 05/09/2012 10/26/2012 Inactive TAKE ONE TABLET BY MOUTH EVERY DAY fluoxetine 40 mg capsule RxNorm: 566304 1 Capsule(s) PO QD 05/09/2007/31/2012 Inactive TAKE ONE CAPSULE BY MOUTH EV JANKI MORNING metformin ER 500 mg tablet,extended release 24 hr RxNorm: 86 0977 1 Tablet(s) PO QD 05/09/2012 10/26/2012 Inactive TAKE ONE TABLET BY MOUTH EVERY DAY Premarin 0.9 mg tablet RxNorm: 163866 1 Tablet(s) PO QD 05/09/2012 Inactive TAKE ONE TABLET BY MOUTH EVERY DAY Symbicort 160 mcg-4.5 mcg/actuation HFA Aerosol Inhaler RxNo rm: 5805632 2 Puff(s) INH BID 05/09/2012 10/26/2012 Inactive INHALE 2 PUFFS O RALLY TWO TIMES A DAY Endocet 10 mg-325 mg Tab RxNorm: 5220343 1-2 Tablet(s) PO Q4H 04/2705/26/2012 Inactive PRN PAIN MS Contin 200 mg Tab RxNorm: 429862 1 Tablet(s) PO BID 04/26/201202/2012 Inactive Ventolin HFA 90 mcg/actuation Aerosol Inhaler RxNorm: 195086 2 Puff(s) INH Q4H 04/25/2012 05/10/2012 Inactive prn Soma 350 mg tablet RxNorm: 671993 2 Tablet(s) PO TID 04/19/201207/19 Inactive TAKE ONE TABLET BY MOUTH THREE TIMES A D AY Ventolin HFA 90 mcg/actuation Aerosol Inhaler RxNorm: 883787 2 Puff(s) INH Q4H 04/12/2012 04/24/2012 Inactive prn Reglan 10 mg tablet RxNorm: 290739 1 Tablet(s) PO QID b efore meals and at bedtime 04/11/2012 07/31/2012 Inactive MS Contin 200 mg Tab RxNorm: 360083 1 Tablet(s) PO BID 03/30/201202/2012 Inactive Endocet 10 mg-325 mg Tab RxNorm: 8584261 1-2 Tablet(s) PO Q4H 03/3004/26/2012 Inactive PRN PAIN MS Contin 200 mg Tab RxNorm: 616646 1 Tablet(s) PO BID 03/02/201206/2012 Inactive Endocet 10 mg-325 mg Tab RxNorm: 2300389 1-2 Tablet(s) PO Q4H 03/0203/29/2012 Inactive PRN PAIN Daliresp 500 mcg tablet RxNorm: 1957468 1 Tablet(s) PO QD 03/01/2012 09/28/2012 Inactive MS Contin 200 mg Tab RxNorm: 583026 1 Tablet(s) PO BID 02/02/201208/2012 Inactive Endocet 10 mg-325 mg Tab RxNorm: 4196927 1-2 Tablet(s) PO Q4H 02/0103/01/2012 Inactive PRN PAIN fluoxetine 40 mg capsule RxNorm: 990979 1 Capsule(s) PO QD 02/02/2008/01/2012 Inactive TAKE ONE CAPSULE BY MOUTH EV JANKI MORNING Synthroid 112 mcg Tab RxNorm: 687421 1 Tablet(s) PO QD 01/18/2012 Inactive TAKE ONE TABLET BY MOUTH EVERY DAY lactulose 10 gram/15 mL oral solution RxNorm: 528911 [address]s) PO QD 01/18/2012 No Stop Date Active TAKE 1 TABLESPOON BY MOUTH ONCE DAILY Ventolin HFA 90 mcg/actuation Aerosol Inhaler RxNorm: 687682 2 Puff(s) INH Q4H 01/18/2012 04/11/2012 Inactive prn MS Contin 200 mg Tab RxNorm: 591216 1 Tablet(s) PO BID 01/05/201210/2012 Inactive Endocet 10 mg-325 mg Tab RxNorm: 0823803 1-2 Tablet(s) PO Q4H 01/0502/01/2012 Inactive PRN PAIN ProAir HFA 90 mcg/Actuation Aerosol Inhaler RxNorm: 280358 2 Pu ff(s) INH Q4H 12/21/2011 No Stop Date Active prn for wheezing or shortness of breath Spiriva with HandiHaler 18 mcg & inhalation Caps RxNorm: 580 261 1 Capsule(s) INH 12/21/2011 06/30/2012 Inactive INHALE CONTENTS OF 1 CAPSULE(S) WITH HANDIHALER ONCE DAILY Reglan 10 mg Tab RxNorm: 073239 1 Tablet(s) PO QID before meals and at bedtime 12/21/2011 04/10/2012 Inactive Synthroid 112 mcg Tab RxNorm: 144119 1 Tablet(s) PO QD 12/21/2011 Inactive TAKE ONE TABLET BY MOUTH EVERY DAY Endocet 10 mg-325 mg Tab RxNorm: 1617964 1-2 Tablet(s) PO Q4H 11/2512/24/2011 Inactive PRN PAIN MS Contin 200 mg Tab RxNorm: 089704 1 Tablet(s) PO BID 11/25/201112/2011 Inactive lactulose 10 gram/15 mL Oral Soln RxNorm: 738998 Milliliter(s) PO 1 No Stop Date Active TAKE 1 TABLESPOON BY MOUTH O NCE DAILY lactulose 10 gram/15 mL Oral Soln RxNorm: 625316 Milliliter(s) PO 1 12/12/2010 11/20/2011 Inactive TAKE 1 TABLESPOON BY MOUTH O NCE DAILY Premarin 0.9 mg Tab RxNorm: 114055 1 Tablet(s) PO QD 10/12/201105/08 Inactive TAKE ONE TABLET BY MOUTH EVERY DAY fluoxetine 20 mg capsule RxNorm: 640257 1 Capsule(s) PO QD 10/12/20 11 09/05/2012 Inactive TAKE ONE CAPSULE BY MOUTH EV JANKI DAY Synthroid 112 mcg Tab RxNorm: 106826 1 Tablet(s) PO QD 10/12/2011 Inactive TAKE ONE TABLET BY MOUTH EVERY DAY metformin ER 500 mg 24 hr Tab RxNorm: 311702 1 Tablet(s) PO QD 09/2311/10/2011 Inactive TAKE ONE TABLET BY MOUTH GLYNN RY DAY Synthroid 112 mcg Tab RxNorm: 323343 1 Tablet(s) PO QD 10/12/2011 Inactive TAKE ONE TABLET BY MOUTH EVERY DAY metformin ER 500 mg 24 hr Tab RxNorm: 016536 1 Tablet(s) PO QD 09/2310/11/2011 Inactive TAKE ONE TABLET BY MOUTH GLYNN RY DAY Prevacid 30 mg Cap RxNorm: 101685 Capsule(s) PO 10/12/2011 01/25/2012 Inactive TAKE ONE CAPSULE BY MOUTH EVERY DAY Symbicort 160 mcg-4.5 mcg/actuation HFA Aerosol Inhaler RxNo rm: 7628312 2 Puff(s) INH BID 10/12/2011 05/08/2012 Inactive INHALE 2 PUFFS O RALLY TWO TIMES A DAY gabapentin 800 mg Tab RxNorm: 259897 1 Tablet(s) PO QD 10/12/2011 Inactive TAKE ONE TABLET BY MOUTH EVERY DAY MS Contin 200 mg Tab RxNorm: 627365 1 Tablet(s) PO BID 09/23/201111/2010 Inactive Endocet 10 mg-325 mg Tab RxNorm: 7761543 1-2 Tablet(s) PO Q4H 09/2310/22/2011 Inactive PRN PAIN Endocet 10 mg-325 mg Tab RxNorm: 0979207 1-2 Tablet(s) PO Q4H 08/2109/19/2011 Inactive PRN PAIN MS Contin 200 mg Tab RxNorm: 367908 1 Tablet(s) PO BID 08/21/2011 Inactive Diflucan 100 mg Tab RxNorm: 223179 1 Tablet(s) PO QD 08/10/201108/16 Inactive cefdinir 300 mg Cap RxNorm: 884224 2 Capsule(s) PO QD 08/10/201107/24 Inactive Reglan 10 mg Tab RxNorm: 388089 1 Tablet(s) PO AC & HS 07/15/2011 Inactive Endocet 10 mg-325 mg Tab RxNorm: 0820650 1-2 Tablet(s) PO Q4H 07/1508/13/2011 Inactive PRN PAIN One Touch Ultra Test strips RxNorm: Miscellaneous BID 06/11/2011 1 01/16/2014 Inactive TEST TWO TIMES A DAY lactulose 10 gram/15 mL Oral Soln RxNorm: 778040 Milliliter(s) PO 0 06/10/2011 10/11/2011 Inactive TAKE 1 TABLESPOON BY MOUTH O NCE DAILY Chantix Continuing Month Aníbal 1 mg Tab RxNorm: 865874 Tablet(s) PO 0 06/10/2011 11/02/2011 Inactive TAKE DIRECTED - PER P[employer] GE INSTRUCTIONS fluoxetine 40 mg Cap RxNorm: 172968 Capsule(s) PO 06/10/2011 02/02/20 12 Inactive TAKE ONE CAPSULE BY MOUTH EVERY MORNING Chantix Continuing Month Aníbal 1 mg Tab RxNorm: 478551 Ta blet(s) PO TAKE DIRECTED - PER PACKAGE INSTRUCTIONS 05/13/2011 06/09/2011 Inactive Soma 350 mg Tab RxNorm: 822302 Tablet(s) PO TAKE ON E TABLET BY MOUTH THREE TIMES A DAY 05/13/2011 04/18/2012 Inactive Chantix Continuing Month Aníbal 1 mg Tab RxNorm: 657151 Ta blet(s) PO as directed per package instructions. 04/22/2011 05/12/2011 Inactive Symbicort 160 mcg-4.5 mcg/Actuation HFA Aerosol Inhaler RxNo rm: 8378237 HFA Aerosol Inhaler INH INHALE 2 PUFFS ORALLY TWO TIMES A DAY 04/13/2011 Inactive Synthroid 112 mcg Tab RxNorm: 279336 Tablet(s) PO TAKE ONE TABLET BY MOUTH EVERY DAY 04/13/2011 10/12/2011 Inactive Premarin 0.9 mg Tab RxNorm: 697700 Tablet(s) PO TAKE ON E TABLET BY MOUTH EVERY DAY 04/13/2011 10/12/2011 Inactive gabapentin 800 mg Tab RxNorm: 566855 Tablet(s) PO TAKE ONE TABLET BY MOUTH EVERY DAY 04/13/2011 10/12/2011 Inactive Prevacid 30 mg Cap RxNorm: 795730 1 Capsule(s) PO QD 04/13/201110/11 Inactive Spiriva with HandiHaler 18 mcg & inhalation Caps RxNorm: 580 261 Capsule(s) INH INHALE CONTENTS OF 1 CAPSULE(S) WITH HANDIHALER ONCE DAILY 04/13/2011 12/21/2011 Inactive metformin ER 500 mg 24 hr Tab RxNorm: 568336 Tablet(s) PO TAKE ONE TABLET BY MOUTH EVERY DAY 04/13/2011 10/12/2011 Inactive Soma 350 mg Tab RxNorm: 776302 1 Tablet(s) PO QID 03/30/2011 02/13/20 19 Inactive fluoxetine 20 mg Cap RxNorm: 727675 Capsule(s) PO TAKE ONE CAPSULE BY MOUTH EVERY DAY 03/25/2011 10/12/2011 Inactive cefdinir 300 mg Cap RxNorm: 234993 2 Capsule(s) PO QD 03/19/201105/2011 Inactive 16.2 mg-0.1037 mg-0.0194 mg Tab RxNorm: 8718432 2 Tablet(s) PO TID PRN for gas and cramping 03/16/2011 07/13/2011 Inactive Soma 350 mg Tab RxNorm: 629267 2 Tablet(s) PO TID 03/16/2011 03/29/20 11 Inactive Chantix Starting Month Aníbal 0.5 mg (11)-1 mg (3x14) Tab s in a Dose Pack RxNorm: 387795 Tablet(s) PO as directed 03/02/2011 No Stop Date Active diazepam 10 mg Tab RxNorm: 921815 1 Tablet(s) PO BID 02/10/201101/19 Inactive Zofran 4 mg tablet RxNorm: 930224 1 Tablet(s) PO Q4H prn nausea 02/16/2011 Inactive Diflucan 100 mg Tab RxNorm: 682653 1 Tablet(s) PO QD 01/18/201101/24 Inactive Premarin 0.625 mg/g Vaginal Cream RxNorm: 778405 VAG In sert 1gm vaginally at bedtime 3 times weekly 01/18/2011 02/12/2019 Inactive loratadine 10 mg Tab RxNorm: 3857723 1 Tablet(s) PO QD 12/17/201003/2012 Inactive Spiriva with HandiHaler 18 mcg & inhalation Caps RxNorm: 580 261 1 Capsule(s) INH QD 12/17/2010 04/12/2011 Inactive Diflucan 100 mg Tab RxNorm: 825306 1 Tablet(s) PO QD 12/17/201012/23 Inactive diazepam 10 mg Tab RxNorm: 652525 1 Tablet(s) PO BID and PRN 201002/12/2019 Inactive One Touch Ultra Test Strips RxNorm: InVt BID Zainab t blood sugar at least twice daily. 11/11/2010 06/11/2011 Inactive fluoxetine 40 mg Cap RxNorm: 461799 1 Capsule(s) PO QAM 11/11/2010 Inactive diazepam 10 mg Tab RxNorm: 563143 1 Tablet(s) PO BID and PRN 200911/12/2010 Inactive Bactrim DS 800 mg-160 mg Tab RxNorm: 337296 1 Tablet(s) PO BID 09/2210/15/2010 Inactive fluoxetine 20 mg Cap RxNorm: 960803 1 Capsule(s) PO QD 10/02/201008/2011 Inactive Bactrim DS 800 mg-160 mg Tab RxNorm: 406543 1 Tablet(s) PO BID 01/201010/03/2010 Inactive Zofran 4 mg Tab RxNorm: 617919 1 Tablet(s) PO Q4H prn nausea 200910/16/2010 Inactive 16.2 mg-0.1037 mg-0.0194 mg Tab RxNorm: 7761623 2 Tablet(s) PO TID PRN for gas and cramping 09/17/2010 10/21/2010 Inactive Gabapentin 800 mg Tab RxNorm: 906876 1 Tablet(s) PO QD 09/16/2010 Inactive ProAir HFA 90 mcg/Actuation Aerosol Inhaler RxNorm: 253883 2 Puff(s) INH Q4H prn shortness of breath 09/15/2010 12/13/2010 Inactive gabapentin 800 mg Tab RxNorm: 107722 1 Tablet(s) PO QD 09/15/2010 Inactive Prevacid 30 mg Cap RxNorm: 070610 1 Capsule(s) PO QD 09/15/201004/12 Inactive loratadine 10 mg Tab RxNorm: 8130501 1 Tablet(s) PO QD 09/15/2010 Inactive Premarin 0.9 mg Tab RxNorm: 335873 1 Tablet(s) PO QD 09/15/201004/12 Inactive Synthroid 112 mcg Tab RxNorm: 875586 1 Tablet(s) PO QD 09/15/2010 Inactive metformin ER 500 mg 24 hr Tab RxNorm: 231052 1 Tablet(s) PO QD 08/2304/12/2011 Inactive Symbicort 160 mcg-4.5 mcg/Actuation Inhalation HFA Aer osol Inhaler RxNorm: 4345892 2 Puff(s) INH BID 09/15/2010 04/12/2011 Inactive diazepam 10 mg Tab RxNorm: 545216 1 Tablet(s) PO BID and PRN 200910/13/2010 Inactive Phentermine 37.5 mg Cap RxNorm: 854770 1 Capsule(s) PO QD 09/02/2010 11/02/2011 Inactive ProAir HFA 90 mcg/Actuation Aerosol Inhaler RxNorm: 960945 2 Puff(s) INH Q4H prn shortness of breath 08/07/2010 No Stop Date Active Premarin 0.9 mg Tab RxNorm: 990161 1 Tablet(s) PO QD 08/07/201009/14 Inactive Loratadine 10 mg Tab RxNorm: 2263466 1 Tablet(s) PO QD 08/07/2010 Inactive Lactulose 10 gram/15 mL Oral Soln RxNorm: 958041 1 Unit Dose PO QD 08/07/2010 02/12/2019 Inactive Zofran 4 mg Tab RxNorm: 911494 1 Tablet(s) PO Q4H prn nausea 2009 No Stop Date Active Gabapentin 800 mg Tab RxNorm: 009841 1 Tablet(s) PO QD 08/07/2010 Inactive Synthroid 112 mcg Tab RxNorm: 181554 1 Tablet(s) PO QD 08/07/2010 Inactive Metformin ER 500 mg 24 hr Tab RxNorm: 293720 1 Tablet(s) PO QD 07/2309/14/2010 Inactive Vitamin D 1,000 unit Tab RxNorm: 908110 1 Tablet(s) PO TID 08/07/2002/12/2019 Inactive Symbicort 160 mcg-4.5 mcg/Actuation Inhalation HFA Aer osol Inhaler RxNorm: 3964283 2 Puff(s) INH BID 08/07/2010 09/14/2010 Inactive Prevacid 30 mg Cap RxNorm: 766984 1 Capsule(s) PO QD 08/07/201009/14 Inactive Metformin ER 500 mg 24 hr Tab RxNorm: 125095 1 Tablet(s) PO QD 06/2308/06/2010 Inactive Vitamin D 1,000 unit Tab RxNorm: 612180 1 Tablet(s) PO TID 07/14/2008/06/2010 Inactive Synthroid 112 mcg Tab RxNorm: 751580 1 Tablet(s) PO QD 07/14/2010 Inactive Lactulose 10 gram/15 mL Oral Soln RxNorm: 707721 1 Unit Dose PO QD 07/14/2010 08/06/2010 Inactive Levaquin 500 mg Tab RxNorm: 396481 1 Tablet(s) PO QD 07/14/201007/27 Inactive Premarin 0.9 mg Tab RxNorm: 336216 1 Tablet(s) PO QD 07/14/201008/06 Inactive ProAir HFA 90 mcg/Actuation Aerosol Inhaler RxNorm: 466501 2 Puff(s) INH Q4H prn shortness of breath 07/14/2010 No Stop Date Active Prevacid 30 mg Cap RxNorm: 551843 1 Capsule(s) PO QD 07/14/201008/06 Inactive Zofran 4 mg Tab RxNorm: 379998 1 Tablet(s) PO Q4H prn nausea 2009 No Stop Date Active Symbicort 160 mcg-4.5 mcg/Actuation Inhalation HFA Aer osol Inhaler RxNorm: 3483547 2 Puff(s) INH BID 07/14/2010 08/06/2010 Inactive Loratadine 10 mg Tab RxNorm: 8054124 1 Tablet(s) PO QD 07/14/2010 Inactive Gabapentin 800 mg Tab RxNorm: 221154 1 Tablet(s) PO QD 07/14/2010 Inactive Metformin ER 500 mg 24 hr Tab RxNorm: 528036 1 Tablet(s) PO 010 07/13/2010 Inactive Diazepam 10 mg Tab RxNorm: 282882 1 Tablet(s) PO BID and PRN 200909/06/2010 Inactive Premarin 0.9 mg Tab RxNorm: 831623 1 Tablet(s) PO QD 06/09/201007/13 Inactive Zofran 4 mg Tab RxNorm: 646932 1 Tablet(s) PO Q4H prn nausea 2009 No Stop Date Active ProAir HFA 90 mcg/Actuation Aerosol Inhaler RxNorm: 685707 2 Puff(s) INH Q4H prn shortness of breath 06/09/2010 No Stop Date Active Gabapentin 800 mg Tab RxNorm: 270901 1 Tablet(s) PO QD 06/09/2010 Inactive Loratadine 10 mg Tab RxNorm: 7303954 1 Tablet(s) PO QD 06/09/2010 Inactive Lactulose 10 gram/15 mL Oral Soln RxNorm: 805968 1 Unit Dose PO QD 06/09/2010 07/13/2010 Inactive Prevacid 30 mg Cap RxNorm: 831037 1 Capsule(s) PO QD 06/09/201007/13 Inactive Synthroid 112 mcg Tab RxNorm: 287137 1 Tablet(s) PO QD 06/09/2010 Inactive Symbicort 160 mcg-4.5 mcg/Actuation Inhalation HFA Aer osol Inhaler RxNorm: 0528051 2 Puff(s) INH BID 06/09/2010 07/13/2010 Inactive Omnicef 300 mg Cap RxNorm: 534141 2 Capsule(s) PO QD 05/07/201005/20 Inactive Metformin 500 mg Tab RxNorm: 458524 1 Tablet(s) PO QD 05/06/201005/22 Inactive ProAir HFA 90 mcg/Actuation Aerosol Inhaler RxNorm: 173465 2 Puff(s) INH Q4H prn shortness of breath 05/06/2010 No Stop Date Active lactulose 10 gram/15 mL Oral Soln RxNorm: 760742 1 Unit Dose PO QD 05/06/2010 06/10/2011 Inactive Loratadine 10 mg Tab RxNorm: 6341988 1 Tablet(s) PO QD 05/06/2010 Inactive Synthroid 112 mcg Tab RxNorm: 259061 1 Tablet(s) PO QD 05/06/2010 Inactive Symbicort 160 mcg-4.5 mcg/Actuation Inhalation HFA Aer osol Inhaler RxNorm: 4825701 2 Puff(s) INH BID 05/06/2010 06/08/2010 Inactive Gabapentin 800 mg Tab RxNorm: 674196 1 Tablet(s) PO QD 05/06/2010 Inactive 16.2 mg-0.1037 mg-0.0194 mg Tab RxNorm: 5686949 2 Tablet(s) PO TID PRN for gas and cramping 05/06/2010 05/12/2010 Inactive Zofran 4 mg Tab RxNorm: 035368 1 Tablet(s) PO Q4H prn nausea 200904/13/2010 Inactive MS Contin 60 mg Tab RxNorm: 484460 3 Tablet(s) PO BID 04/09/201004/22 Inactive Soma 350 mg Tab RxNorm: 486813 2 Tablet(s) PO TID 04/09/2010 05/08/20 10 Inactive Symbicort 160 mcg-4.5 mcg/Actuation Inhalation HFA Aer osol Inhaler RxNorm: 7008766 2 Puff(s) INH BID 04/08/2010 05/05/2010 Inactive Doxycycline 100 mg Cap RxNorm: 0038668 1 Capsule(s) PO BID 04/08/20 10 04/17/2010 Inactive Triamterene-Hydrochlorothiazide 37.5 mg-25 mg Cap RxNorm: 19 8316 1 Capsule(s) PO QAM 04/08/2010 09/04/2010 Inactive fluoxetine 40 mg Cap RxNorm: 918334 1 Capsule(s) PO QAM 04/08/2010 Inactive Morphine SR 120 mg multiphase 24 hr Cap RxNorm: 862747 1 Capsul e(s) PO 03/11/2010 04/07/2010 Inactive Endocet 10 mg-325 mg Tab RxNorm: 3261885 1-2 Tablet(s) PO Q4H [place] N PAIN 03/11/2010 04/09/2010 Inactive Savella 100 mg Tab RxNorm: 509819 1 Tablet(s) PO BID 03/10/201004/09 Inactive Soma 350 mg Tab RxNorm: 601117 1 Tablet(s) PO TID prn spasm 010 04/09/2010 Inactive Savella 100 mg Tab RxNorm: 170046 1 Tablet(s) PO BID 02/03/201004/09 Inactive Aspirin 81 mg Tab RxNorm: 148796 1 Tablet(s) PO QD No Start Date Active Zyrtec 10 mg Tab RxNorm: 3246604 1 Tablet(s) PO QD No Start Date Active One Touch Ultra Test Strips RxNorm: Misc test at least t wice daily. No Start Date Active coenzyme Q10 200 mg capsule RxNorm: 816463 1 Capsule(s) PO QD No Star t Date Active One Touch Ultra Test Strips RxNorm: InVt BID Zainab t blood sugar at least twice daily. No Start Date 11/10/2010 Inactive Gabapentin 800 mg Tab RxNorm: 437236 1 Tablet(s) PO QD No Start Date 05/05/2010 Inactive Abilify 5 mg tablet RxNorm: 982920 1 Tablet(s) PO QD No Start Date Inactive Chantix 1 mg Tab RxNorm: 581101 1 Tablet(s) PO BID No Start Date 10/22 Inactive Ozempic 0.25 mg or 0.5 mg (2 mg/1.5 mL) subcutaneous p en injector RxNorm: 0783203 .25 Milligram(s) SQ QW No Start Date 07/04/2019 Inactive lancets 28 gauge RxNorm: Miscellaneous As needed for blo od glucose sticks No Start Date 08/23/2013 Inactive potassium chloride ER 20 mEq tablet,extended release RxNorm: 094837 2 Tablet(s) PO QD No Start Date 09/26/2018 Inactive Ventolin HFA 90 mcg/actuation Aerosol Inhaler RxNorm: 802789 2 Puff(s) INH Q4H prn No Start Date 01/17/2012 Inactive potassium chloride ER 20 mEq tablet,extended release RxNorm: 285860 2 Tablet(s) PO QD No Start Date 10/19/2018 Inactive Januvia 100 mg tablet RxNorm: 622387 1 Tablet(s) PO QD No Start Date 09/10/2015 Inactive Medrol (Aníbal) 4 mg Tabs in a Dose Pack RxNorm: 356603 Tablet(s) PO N o Start Date 08/09/2011 Inactive as directed Zithromax Z-Aníbal 250 mg Tab RxNorm: 174732 Tablet(s) PO No Start Date 01/25/2012 Inactive as directed vitamin B6-vitamin E-magnesium tablet RxNorm: 1 Tablet(s ) PO QHS with INH No Start Date 03/30/2018 Inactive prednisone 20 mg Tab RxNorm: 453150 1 Tablet(s) PO TID for 1wk then 1 po BID for 1wk No Start Date 01/25/2012 Inactive furosemide 40 mg tablet RxNorm: 054497 1 Tablet(s) PO QAM No Start Date 10/09/2018 Inactive Vitamin D3 1000 units Capsule RxNorm: 1 Capsule(s) PO TID No S tart Date 03/19/2015 Inactive Zofran 4 mg Tab RxNorm: 108766 1 Tablet(s) PO Q4H prn nausea No Sta rt Date 04/13/2010 Inactive Premarin 0.625 mg/g Vaginal Cream RxNorm: 714600 1 Gram (s) VAG QHS 3 times a week No Start Date 09/22/2017 Inactive oxycodone 10 mg tablet RxNorm: 0530273 1-2 Tablet(s) PO QID as n eeded for pain No Start Date 11/04/2015 Inactive Nicoderm CQ 21 mg/24 hr daily Patch RxNorm: 488939 1 Applicatio n TD QD No Start Date 08/05/2015 Inactive Topamax 50 mg tablet RxNorm: 298539 1/2 Tablet(s) PO QH S for 1wk then 1 po q HS for 1wk then 2 po q HS No Start Date 06/27/2012 Inactive Chantix Starting Month Aníbal 0.5 mg (11)-1 mg (3x14) Tab s in a Dose Pack RxNorm: 602711 Tablet(s) PO as directed No Start Date 03/01/2011 Inactive Trulicity 0.75 mg/0.5 mL subcutaneous pen injector RxNorm: 1 297057 Milliliter(s) SQ No Start Date 07/04/2019 Inactive Medrol (Aníbal) 4 mg Tabs in a Dose Pack RxNorm: 450472 Tablet(s) PO N o Start Date 01/25/2012 Inactive as directed Duragesic 100 mcg/hr Transderm Patch RxNorm: 560824 2 A pplication TD Q48H for pain No Start Date 09/05/2013 Inactive Premarin 0.9 mg Tab RxNorm: 433878 1 Tablet(s) PO QD No Start Date Inactive Zithromax Z-Aníbal 250 mg Tab RxNorm: 327341 Tablet(s) PO as direc chinmay No Start Date 01/25/2012 Inactive ondansetron 8 mg disintegrating tablet RxNorm: 239987 1 Tablet(s) PO Q6H as needed No Start Date 10/10/2018 Inactive oxycodone 15 mg tablet RxNorm: 8787151 1 Tablet(s) PO QID as nee ded for pain No Start Date 03/05/2019 Inactive ProAir HFA 90 mcg/Actuation Aerosol Inhaler RxNorm: 512879 2 Puff(s) INH Q4H prn for wheezing or shortness of breath No Start Date 12/21/2011 Inactive pravastatin 40 mg tablet RxNorm: 688892 1/2 Tablet(s) PO QOD No Sta rt Date 04/09/2015 Inactive ipratropium-albuterol 0.5 mg-3 mg(2.5 mg base)/3 mL ne bulization soln RxNorm: 1826455 1 Unit Dose INH Q4H as needed No Start Date 09/09/2016 Inactive furosemide 40 mg tablet RxNorm: 503420 1 Tablet(s) PO QAM as ne eded No Start Date 09/24/2019 Inactive Vitamin D2 oral RxNorm: 4018 oral No Start Date 03/18/2015 Inacti ve pravastatin 40 mg tablet RxNorm: 888180 1/2 Tablet(s) PO QD No Star t Date 04/09/2015 Inactive ondansetron HCl 4 mg tablet RxNorm: 209163 1 Tablet(s) PO Q4H as needed for nausea and vomiting No Start Date 04/07/2016 Inactive furosemide 40 mg tablet RxNorm: 971896 2 Tablet(s) PO QAM No Start Date 09/26/2018 Inactive gabapentin 800 mg tablet RxNorm: 450802 1/2 Tablet(s) PO BID No Sta rt Date 06/21/2017 Inactive gabapentin 800 mg tablet RxNorm: 771436 1/2 Tablet(s) PO BID No Sta rt Date 07/05/2017 Inactive ProAir HFA 90 mcg/Actuation Aerosol Inhaler RxNorm: 455157 2 Puff(s) INH Q4H prn shortness of breath No Start Date 05/05/2010 Inactive scopolamine 1 mg over 3 days transdermal patch RxNorm: 54218 2 1 Application TD behind ear. Take off after three days No Start Date 10/10/2018 Inactive Metformin 500 mg Tab RxNorm: 537288 1 Tablet(s) PO QD No Start Date 0 05/05/2010 Inactive MS Contin 200 mg Tab RxNorm: 207982 1 Tablet(s) PO BID No Start Date 08/20/2011 Inactive Belladonna-Phenobarbital 48 mg tablet,extended release RxNor m: 2 Tablet(s) PO TID No Start Date 06/04/2016 Inactive Synthroid 112 mcg Tab RxNorm: 650952 1 Tablet(s) PO QD No Start Date 05/05/2010 Inactive Zegerid 40 mg-1.1 gram Cap RxNorm: 195945 1 Capsule(s) PO QD No Sta rt Date 01/25/2012 Inactive Premarin 0.625 mg/g Vaginal Cream RxNorm: 847991 VAG In sert 1gm vaginally at bedtime 3 times weekly No Start Date 01/17/2011 Inactive potassium chloride ER 20 mEq tablet,extended release RxNorm: 043428 1 Tablet(s) PO QD No Start Date 04/24/2019 Inactive methocarbamol 750 mg tablet RxNorm: 888438 2 Tablet(s) PO TID as needed for muscle spasm No Start Date 07/08/2014 Inactive Biaxin XL Aníbal 500 mg 24 hr Tab RxNorm: 888098 Tablet(s) PO as d irected No Start Date 04/24/2013 Inactive Vitamin D3 1,000 unit tablet RxNorm: 180116 3 Tablet(s) PO QD No St art Date 06/01/2017 Inactive Morphine SR 120 mg multiphase 24 hr Cap RxNorm: 248316 1 Capsul e(s) PO BID No Start Date 04/09/2010 Inactive Silvadene 1 % topical cream RxNorm: 723026 1 Application TOP BI D to burn area No Start Date 01/31/2017 Inactive Prednisone 20 mg Tab RxNorm: 954551 1 Tablet(s) PO TID for 3days then BID for 4days No Start Date 01/25/2012 Inactive gabapentin 600 mg tablet RxNorm: 514390 1 Tablet(s) PO BID No Start Date 01/21/2015 Inactive topiramate 50 mg tablet RxNorm: 190178 1 Tablet(s) PO QHS No Start Date 03/30/2018 Inactive Januvia 100 mg tablet RxNorm: 161580 1/2 Tablet(s) PO QD No Start D ate 12/25/2015 Inactive Diazepam 10 mg Tab RxNorm: 549171 1 Tablet(s) PO BID and PRN No Sta rt Date 06/08/2010 Inactive Medication Administered No Medication Administered data Immunizations Vaccine Codes Date Status Influenza CVX: 141 09/28/2012 Pneumovax Unknown 09/28/2012 Influenza (Adult) CVX: 141 09/02/2010 Results No Results data Procedures Procedure Codes Date THER/PROPH/DIAG INJ SC/IM CPT-4: 46457 07/10/2019 METHYLPREDNISOLONE INJECTION CPT-4: J2930 07/10/2019 URINALYSIS NONAUTO W/O SCOPE CPT-4: 61632 09/06/2018 URINE CULTURE/ COLONY COUNT CPT-4: 12732 09/06/2018 DRAIN/INJECT JOINT/BURSA CPT-4: 59906 04/29/2017 TRIAMCINOLONE ACET INJ NOS CPT-4: J3301 04/29/2017 DEXAMETHASONE SODIUM PHOS CPT-4: J1100 04/29/2017 INFLUENZA ASSAY W/OPTIC CPT-4: 44115 12/01/2016 RESPIRATORY CULTURE & STAIN CPT-4: 36067 07/09/2016 TB INTRADERMAL TEST CPT-4: 29033 04/21/2016 DRAIN/INJECT JOINT/BURSA CPT-4: 76501 11/07/2013 METHYLPREDNISOLONE 40 MG INJ CPT-4: J1030 11/07/2013 TRIAMCINOLONE ACET INJ NOS CPT-4: J3301 11/07/2013 DRAIN/INJECT JOINT/BURSA CPT-4: 49914 08/08/2013 METHYLPREDNISOLONE 40 MG INJ CPT-4: J1030 08/08/2013 TRIAMCINOLONE ACET INJ NOS CPT-4: J3301 08/08/2013 FLU VACCINE 3 YRS & > IM UP 64 CPT-4: 53574 2 PNEUMOCOCCAL VACC 23 ADITYA IM CPT-4: 74904 09/28/2012 IMMUNIZATION ADMIN CPT-4: 04799 09/28/2012 IMMUNIZATION ADMIN EACH ADD CPT-4: 05165 09/28/2012 FLU VACCINE 3 YRS & > IM UP 64 CPT-4: 07134 0 IMMUNIZATION ADMIN CPT-4: 71421 09/02/2010 METHYLPREDNISOLONE INJECTION CPT-4: J2930 05/07/2010 THER/PROPH/DIAG INJ SC/IM CPT-4: 45108 05/07/2010 Vital Signs Date Vital 11/29/2019 Blood [...] 1: 122/78 Code: 8480-6 BMI: 29.5 Code: 21376-1 Heart Rate 1: 76 bpm Height: 5'4" Respiratory Rate: 20 bpm SpO2: 96% Tempera ture: 37.0 (C) / 98.6 (F) Weight: 172 lbs 01/25/2019 Blood Pressure 1: 132/80 Code: 8480-6 BMI: 29.7 Code: 28972-2 Heart Rate 1: 84 bpm Height: 5'4" Respiratory Rate: 22 bpm SpO2: 98% Tempera ture: 36.9 (C) / 98.4 (F) Weight: 173 lbs 01/03/2019 Blood Pressure 1: 116/70 Code: 8480-6 BMI: 29.5 Code: 13567-2 Heart Rate 1: 92 bpm Height: 5'4" Respiratory Rate: 24 bpm SpO2: 98% Tempera ture: 37.2 (C) / 98.9 (F) Weight: 172 lbs 11/21/2018 Blood Pressure 1: 146/82 Code: 8480-6 BMI: 28.2 Code: 52283-4 Heart Rate 1: 88 bpm Height: 5'4" Respiratory Rate: 22 bpm SpO2: 97% Tempera ture: 36.9 (C) / 98.4 (F) Weight: 164 lbs 10/27/2018 Blood Pressure 1: 122/70 Code: 8480-6 BMI: 27.6 Code: 77790-9 Heart Rate 1: 88 bpm Height: 5'4" Respiratory Rate: 20 bpm SpO2: 96% Tempera ture: 36.8 (C) / 98.3 (F) Weight: 161 lbs 10/18/2018 Blood Pressure 1: 126/70 Code: 8480-6 BMI: 28.3 Code: 40888-6 Heart Rate 1: 76 bpm Height: 5'4" Respiratory Rate: 20 bpm SpO2: 95% Tempera ture: 37.0 (C) / 98.6 (F) Weight: 165 lbs 09/27/2018 Blood Pressure 1: 124/78 Code: 8480-6 BMI: 27.1 Code: 29552-2 Heart Rate 1: 88 bpm Height: 5'4" Respiratory Rate: 20 bpm SpO2: 98% Tempera ture: 36.4 (C) / 97.6 (F) Weight: 158 lbs 09/14/2018 Blood Pressure 1: 140/72 Code: 8480-6 BMI: 26.1 Code: 97449-0 Heart Rate 1: 100 bpm Height: 5'4" Respiratory Rate: 20 bpm SpO2: 97% Tempera ture: 36.9 (C) / 98.4 (F) Weight: 152 lbs 09/06/2018 Blood Pressure 1: 156/82 Code: 8480-6 BMI: 26.3 Code: 22453-1 Heart Rate 1: 100 bpm Height: 5'4" Respiratory Rate: 28 bpm SpO2: 95% Tempera ture: 37.2 (C) / 98.9 (F) Weight: 153 lbs 08/16/2018 Blood Pressure 1: 130/78 Code: 8480-6 Heart Rate 1: 87 bpm Respiratory Rate: 24 bpm SpO2: 94% Temperature: 36.9 (C) / 98.4 (F) We ight: 147 lbs 8 oz 07/07/2018 Blood Pressure 1: 116/78 Code: 8480-6 BMI: 22.7 Code: 43456-1 Heart Rate 1: 88 bpm Height: 5'4" Respiratory Rate: 22 bpm SpO2: 98% Tempera ture: 36.5 (C) / 97.7 (F) Weight: 132 lbs 05/31/2018 Blood Pressure 1: 128/78 Code: 8480-6 BMI: 22.3 Code: 75215-7 Heart Rate 1: 92 bpm Height: 5'4" Respiratory Rate: 26 bpm SpO2: 94% Tempera ture: 36.7 (C) / 98.1 (F) Weight: 130 lbs 03/31/2018 Blood Pressure 1: 136/78 Code: 8480-6 BMI: 21.5 Code: 30968-4 Heart Rate 1: 76 bpm Height: 5'4" Respiratory Rate: 24 bpm SpO2: 95% Tempera ture: 36.8 (C) / 98.3 (F) Weight: 125 lbs 01/26/2018 Blood Pressure 1: 142/64 Code: 8480-6 BMI: 20.6 Code: 40563-3 Heart Rate 1: 90 bpm Height: 5'4" Respiratory Rate: 24 bpm SpO2: 92% Tempera ture: 36.3 (C) / 97.3 (F) Weight: 120 lbs 10/26/2017 Blood Pressure 1: 124/70 Code: 8480-6 BMI: 20.3 Code: 56033-4 Heart Rate 1: 76 bpm Height: 5'4" Respiratory Rate: 22 bpm SpO2: 94% Tempera ture: 36.7 (C) / 98.1 (F) Weight: 118 lbs 09/23/2017 Blood Pressure 1: 106/70 Code: 8480-6 BMI: 19.2 Code: 28886-2 Heart Rate 1: 76 bpm Height: 5'4" Respiratory Rate: 20 bpm SpO2: 94% Tempera ture: 36.8 (C) / 98.3 (F) Weight: 112 lbs 08/12/2017 Blood Pressure 1: 116/68 Code: 8480-6 BMI: 20.1 Code: 36534-0 Heart Rate 1: 80 bpm Height: 5'4" Respiratory Rate: 22 bpm SpO2: 95% Tempera ture: 36.8 (C) / 98.2 (F) Weight: 117 lbs 07/06/2017 Blood Pressure 1: 136/78 Code: 8480-6 BMI: 20.6 Code: 58237-4 Heart Rate 1: 76 bpm Height: 5'4" Respiratory Rate: 24 bpm SpO2: 96% Tempera ture: 36.8 (C) / 98.2 (F) Weight: 120 lbs 06/02/2017 Blood Pressure 1: 112/70 Code: 8480-6 Heart Rate 1: 92 bpm Height: 5'4" Respiratory Rate: 24 bpm SpO2: 95% Temperature: 37.0 (C) / 98.6 (F) Weight: 04/29/2017 Blood Pressure 1: 94/52 Code: 8480-6 BMI: 19.6 C ode: 66376-9 Heart Rate 1: 84 bpm Height: 5'4" [...] 92/58 Code: 8480-6 BMI: 19.2 C ode: 24733-6 Heart Rate 1: 84 bpm Height: 5'4" Respiratory Rate: 26 bpm SpO2: 95% Tempera ture: 36.7 (C) / 98.0 (F) Weight: 112 lbs 12/01/2016 Blood Pressure 1: 114/70 Code: 8480-6 BMI: 19.2 Code: 94892-1 Heart Rate 1: 96 bpm Height: 5'4" Respiratory Rate: 28 bpm SpO2: 93% Tempera ture: 38.3 (C) / 101.0 (F) Weight: 112 lbs 10/27/2016 Blood Pressure 1: 126/66 Code: 8480-6 BMI: 19.6 Code: 13263-9 Heart Rate 1: 92 bpm Height: 5'4" Respiratory Rate: 28 bpm SpO2: 90% Tempera ture: 36.8 (C) / 98.3 (F) Weight: 114 lbs 09/09/2016 Blood Pressure 1: 126/74 Code: 8480-6 Heart Rate 1: 104 bpm Height: 5'4" Respiratory Rate: 32 bpm SpO2: 88% Temperature: 37 .2 (C) / 99.0 (F) 08/26/2016 Blood Pressure 1: 134/82 Code: 8480-6 BMI: 22.0 Code: 80481-1 Heart Rate 1: 84 bpm Height: 5'4" Respiratory Rate: 24 bpm SpO2: 94% Tempera ture: 36.8 (C) / 98.3 (F) Weight: 128 lbs 05/21/2016 Blood Pressure 1: 142/80 Code: 8480-6 BMI: 21.6 Code: 03109-1 Heart Rate 1: 104 bpm Height: 5'4" Respiratory Rate: 22 bpm SpO2: 93% Tempera ture: 36.0 (C) / 96.8 (F) Weight: 126 lbs 03/25/2016 Blood Pressure 1: 126/62 Code: 8480-6 Heart Rate 1: 88 bpm Respiratory Rate: 20 bpm SpO2: 92% Temperature: 36.8 (C) / 98.3 (F) We ight: 130 lbs 01/23/2016 Blood Pressure 1: 146/82 Code: 8480-6 BMI: 24.1 Code: 57208-1 Heart Rate 1: 92 bpm Height: 5'3" Respiratory Rate: 22 bpm Temperature: 37 .1 (C) / 98.8 (F) Weight: 136 lbs 12/26/2015 Blood Pressure 1: 142/78 Code: 8480-6 BMI: 24.6 Code: 32290-0 Heart Rate 1: 78 bpm Height: 5'3" Respiratory Rate: 20 bpm Temperature: 36 .7 (C) / 98.1 (F) Weight: 139 lbs 12/03/2015 Blood Pressure 1: 126/60 Code: 8480-6 BMI: 24.6 Code: 13902-3 Heart Rate 1: 100 bpm Height: 5'3" Respiratory Rate: 28 bpm Temperature: 37 .6 (C) / 99.6 (F) Weight: 139 lbs 09/10/2015 Blood Pressure 1: 124/64 Code: 8480-6 BMI: 23.7 Code: 73878-3 Heart Rate 1: 88 bpm Height: 5'3" Respiratory Rate: 24 bpm SpO2: 95% Tempera ture: 36.4 (C) / 97.6 (F) Weight: 134 lbs 08/06/2015 Blood Pressure 1: 114/76 Code: 8480-6 BMI: 23.2 Code: 93143-9 Heart Rate 1: 88 bpm Height: 5'3" Respiratory Rate: 22 bpm Temperature: 36 .6 (C) / 97.9 (F) Weight: 131 lbs 07/18/2015 Blood Pressure 1: 144/78 Code: 8480-6 BMI: 23.7 Code: 10933-8 Heart Rate 1: 84 bpm Height: 5'3" Respiratory Rate: 20 bpm Temperature: 37 .2 (C) / 99.0 (F) Weight: 134 lbs 04/10/2015 Blood Pressure 1: 110/64 Code: 8480-6 Heart Rate 1: 80 bpm Height: Respiratory Rate: 20 bpm Temperature: 37.1 (C) / 98.8 (F) Weight: 03/05/2015 Blood Pressure 1: 136/80 Code: 8480-6 BMI: 23.9 Code: 61706-3 Heart Rate 1: 76 bpm Height: 5'3" Respiratory Rate: 24 bpm Temperature: 37 .0 (C) / 98.6 (F) Weight: 135 lbs 01/30/2015 Blood Pressure 1: 142/80 Code: 8480-6 BMI: 23.0 Code: 95638-6 Heart Rate 1: 96 bpm Height: 5'3" Respiratory Rate: 22 bpm Temperature: 36 .2 (C) / 97.2 (F) Weight: 130 lbs 01/02/2015 Blood Pressure 1: 124/70 Code: 8480-6 BMI: 23.4 Code: 21350-3 Heart Rate 1: 84 bpm Height: 5'3" Respiratory Rate: 24 bpm SpO2: 95% Tempera ture: 36.9 (C) / 98.5 (F) Weight: 132 lbs 10/03/2014 Blood Pressure 1: 106/68 Code: 8480-6 BMI: 22.5 Code: 41502-8 Heart Rate 1: 88 bpm Height: 5'3" Respiratory Rate: 24 bpm Temperature: 37 .0 (C) / 98.6 (F) Weight: 127 lbs 08/27/2014 Blood Pressure 1: 124/68 Code: 8480-6 BMI: 21.1 Code: 41345-4 Heart Rate 1: 88 bpm Height: 5'3" [...] 1: 120/70 Code: 8480-6 BMI: 19.2 Code: 54365-0 Heart Rate 1: 70 bpm Height: 5'4" Respiratory Rate: 20 bpm Temperature: 36 .9 (C) / 98.4 (F) Weight: 112 lbs 06/28/2013 Blood Pressure 1: 102/68 Code: 8480-6 BMI: 19.6 Code: 87609-5 Heart Rate 1: 76 bpm Height: 5'4" Respiratory Rate: 20 bpm Temperature: 36 .8 (C) / 98.2 (F) Weight: 114 lbs 05/31/2013 Blood Pressure 1: 106/70 Code: 8480-6 BMI: 18.9 Code: 52177-4 Heart Rate 1: 100 bpm Height: 5'4" Respiratory Rate: 20 bpm Temperature: 36 .4 (C) / 97.6 (F) Weight: 110 lbs 05/03/2013 Blood Pressure 1: 126/70 Code: 8480-6 BMI: 19.1 Code: 68248-3 Heart Rate 1: 88 bpm Height: 5'4" Respiratory Rate: 20 bpm Temperature: 37 .1 (C) / 98.8 (F) Weight: 111 lbs 04/25/2013 Blood Pressure 1: 114/68 Code: 8480-6 BMI: 19.4 Code: 13682-2 Heart Rate 1: 92 bpm Height: 5'4" Respiratory Rate: 24 bpm SpO2: 96% Tempera ture: 37.7 (C) / 99.8 (F) Weight: 113 lbs 03/08/2013 Blood Pressure 1: 94/68 Code: 8480-6 BMI: 21.3 C ode: 49598-5 Heart Rate 1: 88 bpm Height: 5'4" Respiratory Rate: 24 bpm Temperature: 37 .0 (C) / 98.6 (F) Weight: 124 lbs 02/07/2013 Blood Pressure 1: 106/64 Code: 8480-6 BMI: 21.8 Code: 72379-7 Heart Rate 1: 84 bpm Height: 5'4" Respiratory Rate: 22 bpm Temperature: 36 .8 (C) / 98.2 (F) Weight: 127 lbs 01/10/2013 Blood Pressure 1: 122/68 Code: 8480-6 BMI: 21.6 Code: 44512-6 Heart Rate 1: 94 bpm Height: 5'4" SpO2: 94% Temperature: 36.7 (C) / 98.1 (F) Weight: 126 lbs 09/28/2012 Blood Pressure 1: 124/78 Code: 8480-6 BMI: 24.9 Code: 83986-6 Heart Rate 1: 92 bpm Height: 5'4" Respiratory Rate: 20 bpm Temperature: 36 .7 (C) / 98.1 (F) Weight: 145 lbs 06/28/2012 Blood Pressure 1: 134/80 Code: 8480-6 BMI: 24.9 Code: 24165-6 Heart Rate 1: 76 bpm Height: 5'4" Respiratory Rate: 20 bpm Temperature: 36 .8 (C) / 98.2 (F) Weight: 145 lbs 05/03/2012 Blood Pressure 1: 108/62 Code: 8480-6 BMI: 25.6 Code: 27152-4 Heart Rate 1: 88 bpm Height: 5'4" Temperature: 36.2 (C) / 97.2 (F) Weight: 149 lbs 03/01/2012 Blood Pressure 1: 124/66 Code: 8480-6 BMI: 25.1 Code: 23416-8 Heart Rate 1: 76 bpm Height: 5'4" Respiratory Rate: 20 bpm Temperature: 36 .6 (C) / 97.9 (F) Weight: 146 lbs 01/26/2012 Blood Pressure 1: 118/82 Code: 8480-6 BMI: 25.1 Code: 63093-6 Heart Rate 1: 74 bpm Height: 5'4" Temperature: 36.8 (C) / 98.2 (F) Weight: 146 lbs 11/03/2011 Blood Pressure 1: 126/80 Code: 8480-6 BMI: 27.3 Code: 35353-3 Heart Rate 1: 72 bpm Height: 5'4" [...] Monitoring 02/13/2020 follow up 11/29/2019 Discuss pneumonia [facility] follow up 10/30/2019 follow up 10/25/2019 [...] prozac Encounters Encounter Performer Location Codes Date ([id number]) OFFICE/OUTPATIENT VISIT EST Diagnosis: Urticaria[ICD10: L50.9] Diagnosis: Allergy to morphine[ICD10: Z88.5] Diagnosis: Chronic pain syndrome[ICD10: G89.4] Vika RENTERIA enrich-in CPT-4: 99724 02/13/2020 ([id number]) OFFICE/OUTPATIENT VISIT EST Diagnosis: Chronic pain syndrome[ICD10: G89.4] Diagnosis: Localized edema[ICD10: R60.0] Diagnosis: Chronic obstructive pulmonary disease, unspecified[ICD10: J44.9] Diagnosis: Other fatigue[ICD10: R53.83] Diagnosis: Muscle weakness (generalized)[ICD10: M62.81] Diagnosis: Spinal stenosis, lumbar region with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
--- OUTSIDE RECORDS SUMMARY | 2020-04-24 22:54 | XMS REPORT | CCD ---
Author Author Yana Renteria D.O. Organization [facility] Address [address] [place] [address] Phone Care Team Providers Care Saw Boss Name Role Phone Vika Renteria D.O., PP Unavailable CCM Unavailable Summary Purpose Interface Exchange Insurance Providers Payer name Policy type / Coverage type Covered libertarian ID Effective Begin Date Effective End Date [employer] [facility] [place] Medicaid [id number] 2018 U nknown Family History Family History data not found Social History Social History Element Codes Description Effective Dates Marital status Unknown 06/28/[address]: 77426138 Currently smokes tobacco 05/2013 Allergies, Adverse Reactions, Alerts Substance Reaction Codes Entered Date Inactivated Date Status Other Unknown 06/28/2013 No Inactive Date Active * NO KNOWN FOOD ALLERGIES Unknown 06/28/2013 No Inactiv e Date Active * NO KNOWN DRUG ALLERGIES Unknown 05/07/2010 No Inactiv e Date Active Problems Condition Codes Effective Dates Condition Status Right upper quadrant abdominal pain ICD-9: 789.01 ICD-10: R10.11 12/01/2019 Active Chronic obstructive pulmonary disease, unspecified ICD -9: 496 ICD-10: J44.9 03/07/2014 Active Chronic pain syndrome ICD-9: 338.4 ICD-10: G89.4 08/27/2014 Active Localized edema ICD-9: 782.3 ICD-10: R60.0 [...] Fill Instructions levothyroxine 25 mcg tablet RxNorm: 308452 TAKE ONE TAB LET BY MOUTH EVERY MORNING 02/09/2020 No Stop Date Active MS Contin 200 mg tablet,extended release RxNorm: 807036 1 Tablet(s) Oral two times a day 02/01/2020 03/01/2020 Active cyclobenzaprine 10 mg tablet RxNorm: 550283 TAKE ONE TA BLET BY MOUTH THREE TIMES A DAY NEEDED 01/31/2020 No Stop Date Active Premarin 0.45 mg tablet RxNorm: 468921 TAKE ONE TABLET BY MOUTH DAILY 01/31/2020 No Stop Date Active metformin 500 mg tablet RxNorm: 742022 1 Tablet(s) Oral QD 01/31/2004/29/2020 Active gabapentin 300 mg capsule RxNorm: 828367 TAKE ONE CAPSULE BY [facility] TWICE A DAY 01/16/2020 No Stop Date Active potassium chloride ER 20 mEq tablet,extended release RxNorm: 953713 TAKE ONE TABLET BY MOUTH DAILY 01/08/2020 07/05/2020 Active ProAir HFA 90 mcg/actuation aerosol inhaler RxNorm: 867308 INHALE ONE PUFF BY MOUTH EVERY 4 HOURS FOR WHEEZING OR FOR SHORTNESS OF BREATH 01/04/2020 No Stop Date Active metformin 500 mg tablet RxNorm: 645139 1 Tablet(s) Oral QD 01/04/20 20 01/30/2020 Inactive MS Contin 200 mg tablet,extended release RxNorm: 248044 1 Tablet(s) Oral two times a day 01/02/2020 01/31/2020 Inactive Pulmicort 1 mg/2 mL suspension for nebulization RxNorm: 6168 19 USE ONE VIAL VIA NEBULIZER BY MOUTH TWICE A DAY 12/21/2019 No Stop Date Active furosemide 40 mg tablet RxNorm: 520407 TAKE ONE TABLET BY MOUTH EVERY MORNING NEEDED 12/20/2019 No Stop Date Active levothyroxine 25 mcg tablet RxNorm: 817612 TAKE ONE TAB LET BY MOUTH EVERY MORNING 12/20/2019 02/08/2020 Inactive MS Contin 200 mg tablet,extended release RxNorm: 359951 1 Tablet(s) Oral two times a day 12/05/2019 01/01/2020 Inactive Medrol (Aníbal) 4 mg tablets in a dose pack RxNorm: 263681 6 Tablet(s) Oral QD --then as directed 11/30/2019 12/05/2019 Inactive MS Contin 200 mg tablet,extended release RxNorm: 944423 1 Tablet(s) Oral two times a day 11/29/2019 12/04/2019 Inactive cyclobenzaprine 10 mg tablet RxNorm: 820129 TAKE ONE TA BLET BY MOUTH THREE TIMES A DAY NEEDED 11/21/2019 01/30/2020 Inactive MS Contin 200 mg tablet,extended release RxNorm: 192825 1 Tablet(s) Oral two times a day replaces 100mg dose 11/03/2019 11/02/2019 Inactive MS Contin 200 mg tablet,extended release RxNorm: 271750 1 Tablet(s) Oral two times a day replaces 100mg dose 11/03/2019 11/29/2019 Inactive ferrous sulfate 325 mg (65 mg iron) tablet RxNorm: 033399 1 Tab let(s) Oral QD 10/30/2019 No Stop Date Active MS Contin 100 mg tablet,extended release RxNorm: 442800 1 Table t(s) Oral QD 10/30/2019 10/29/2019 Inactive MS Contin 100 mg tablet,extended release RxNorm: 743282 1 Table t(s) Oral QD 10/30/2019 11/02/2019 Inactive Relistor 150 mg tablet RxNorm: 1243673 TAKE THREE TABLETS BY [facility] DAILY 10/25/2019 No Stop Date Active pantoprazole 40 mg tablet,delayed release RxNorm: 002272 1 Tabl et(s) Oral QD 10/25/2019 No Stop Date Active Minipress 2 mg capsule RxNorm: 120045 1 Capsule(s) Oral QAM and 3 at bedtime 10/25/2019 No Stop Date Active Lancets, Super Thin RxNorm: 1 Unit Dose Miscellaneous QD 9 11/27/2020 Active Cymbalta 60 mg capsule,delayed release RxNorm: 193717 1 Capsule (s) Oral QAM 10/25/2019 No Stop Date Active Cymbalta 30 mg capsule,delayed release RxNorm: 375537 1 Capsule (s) Oral QAM 10/25/2019 No Stop Date Active oxycodone 15 mg tablet RxNorm: 1014594 1 Tablet(s) Oral four times a day as needed for pain 10/25/2019 11/28/2019 Inactive metformin 500 mg tablet RxNorm: 321472 1 Tablet(s) Oral QD 10/25/20 19 01/03/2020 Inactive levothyroxine 25 mcg tablet RxNorm: 816932 1 Tablet(s) Oral QAM 02/201912/19/2019 Inactive levothyroxine 25 mcg tablet RxNorm: 990206 1 Tablet(s) Oral QAM 02/201910/24/2019 Inactive MS Contin 100 mg tablet,extended release RxNorm: 399906 1 Tablet(s) Oral two times a day replaces fentanyl 10/25/2019 10/25/2019 Inactive Premarin 0.45 mg tablet RxNorm: 419410 TAKE ONE TABLET BY MOUTH DAILY 10/24/2019 01/30/2020 Inactive Duragesic 100 mcg/hr transdermal patch RxNorm: 400516 2 Application TD Q48H for pain 10/18/2019 10/24/2019 Inactive gabapentin 300 mg capsule RxNorm: 893348 TAKE ONE CAPSULE BY MO UT TWICE A DAY 10/16/2019 01/15/2020 Inactive cyclobenzaprine 10 mg tablet RxNorm: 271865 TAKE ONE TA BLET BY MOUTH THREE TIMES A DAY NEEDED 09/27/2019 11/20/2019 Inactive Relistor 150 mg tablet RxNorm: 9822874 TAKE THREE TABLETS BY [facility] DAILY 09/25/2019 10/24/2019 Inactive ProAir HFA 90 mcg/actuation aerosol inhaler RxNorm: 011676 INHALE ONE PUFF BY MOUTH EVERY 4 HOURS FOR WHEEZING OR FOR SHORTNESS OF BREATH 09/25/2019 01/03/2020 Inactive furosemide 40 mg tablet RxNorm: 135731 1 Tablet(s) Oral QAM as needed 09/25/2019 09/25/2019 Inactive oxycodone 15 mg tablet RxNorm: 2038862 1 Tablet(s) PO QID as nee ded for pain 09/21/2019 10/24/2019 Inactive Duragesic 100 mcg/hr transdermal patch RxNorm: 922432 2 Application TD Q48H for pain 09/19/2019 10/17/2019 Inactive Daliresp 500 mcg tablet RxNorm: 5596313 1 Tablet(s) Oral QD 019 03/08/2020 Active Relistor 150 mg tablet RxNorm: 4977179 TAKE THREE TABLETS BY [facility] DAILY 07/25/2019 07/30/2019 Inactive cyclobenzaprine 10 mg tablet RxNorm: 211993 TAKE ONE TA BLET BY MOUTH THREE TIMES A DAY NEEDED 07/25/2019 09/22/2019 Inactive potassium chloride ER 20 mEq tablet,extended release RxNorm: 442044 TAKE ONE TABLET BY MOUTH DAILY 07/25/2019 01/07/2020 Inactive fluoxetine 40 mg capsule RxNorm: 908406 TAKE ONE CAPSULE BY [facility] EVERY MORNING 07/11/2019 10/24/2019 Inactive Medrol (Aníbal) 4 mg tablets in a dose pack RxNorm: 368219 6 Tablet(s) PO QD --then as directed 07/10/2019 07/15/2019 Inactive omeprazole 40 mg capsule,delayed release RxNorm: 510615 1 Capsule(s) PO QD for stomach TAKE ONE CAPSULE BY MOUTH DAILY 07/10/2019 10/24/2019 Inactive Augmentin 875 mg-125 mg tablet RxNorm: 179084 1 Tablet(s) PO BID 07/16/2019 Inactive Trulicity 0.75 mg/0.5 mL subcutaneous pen injector RxNorm: 1 522783 0.75 Milliliter(s) SQ weekly 07/05/2019 10/24/2019 Inactive Compazine 10 mg tablet RxNorm: 957478 TAKE ONE TABLET B Y MOUTH FOUR TIMES A DAY NEEDED FOR NAUSEA 06/20/2019 07/19/2019 Inactive ProAir HFA 90 mcg/actuation aerosol inhaler RxNorm: 268952 INHALE ONE PUFF BY MOUTH EVERY 4 HOURS FOR WHEEZING OR FOR SHORTNESS OF BREATH 06/20/2019 06/23/2019 Inactive Daliresp 500 mcg tablet RxNorm: 0187102 TAKE ONE TABLET BY MOUTH DAILY 06/12/2019 09/10/2019 Inactive fkccsabx-iubznwulx-ezxvmtgkq 3.5 mg/mL-10,000 unit/mL- 1 % ear solution RxNorm: 626346 4 Drop(s) otic (ear) TID to left ear 06/05/2019 10/24/2019 Inac tive furosemide 40 mg tablet RxNorm: 433532 TAKE ONE TABLET BY MOUTH EVERY MORNING 05/26/2019 07/09/2019 Inactive Duragesic 100 mcg/hr transdermal patch RxNorm: 407345 2 Application TD Q48H for pain 05/16/2019 06/14/2019 Inactive oxycodone 15 mg tablet RxNorm: 3221183 1 Tablet(s) PO QID as nee ded for pain 05/10/2019 09/20/2019 Inactive doxycycline hyclate 100 mg capsule RxNorm: 3142842 1 Capsule(s) PO BID 05/03/2019 05/12/2019 Inactive prednisone 20 mg tablet RxNorm: 612540 1 Tablet(s) PO T ID for 3 days then 1 po BID for 3 days then one daily for 3 days 05/03/2019 07/11/2019 Inactiv e Ozempic 0.25 mg or 0.5 mg (2 mg/1.5 mL) subcutaneous p en injector RxNorm: 5788305 0.5 Milligram(s) SQ QW 05/03/2019 07/09/2019 Inactive fluconazole 100 mg tablet RxNorm: 714953 1 Tablet(s) PO QD 05/03/2005/07/2019 Inactive Premarin 0.45 mg tablet RxNorm: 972383 TAKE ONE TABLET BY MOUTH DAILY 05/03/2019 10/23/2019 Inactive potassium chloride ER 20 mEq tablet,extended release RxNorm: 396025 1 Tablet(s) PO QD 04/27/2019 07/25/2019 Inactive potassium chloride ER 20 mEq tablet,extended release RxNorm: 236969 1 Tablet(s) PO QD 04/25/2019 04/26/2019 Inactive Compazine 10 mg tablet RxNorm: 011155 1 Tablet(s) PO QID as nee ded for nausea 04/25/2019 05/04/2019 Inactive ProAir HFA 90 mcg/actuation aerosol inhaler RxNorm: 445429 INHALE ONE PUFF BY MOUTH EVERY 4 HOURS FOR WHEEZING OR FOR SHORTNESS OF BREATH 04/12/2019 06/10/2019 Inactive Medrol (Aníbal) 4 mg tablets in a dose pack RxNorm: 257953 6 Tablet(s) PO QD --then as directed 04/11/2019 04/16/2019 Inactive Symbicort 160 mcg-4.5 mcg/actuation HFA aerosol inhaler RxNo rm: 6381875 2 Puff(s) INH BID 04/10/2019 10/06/2019 Inactive levothyroxine 50 mcg tablet RxNorm: 191033 1 Tablet(s) PO QD 201810/24/2019 Inactive gabapentin 300 mg capsule RxNorm: 008088 1 Capsule(s) PO BID 201810/02/2019 Inactive Symbicort 160 mcg-4.5 mcg/actuation HFA aerosol inhaler RxNo rm: 4426185 2 Puff(s) INH BID 04/06/2019 04/09/2019 Inactive oxycodone 15 mg tablet RxNorm: 2905696 1 Tablet(s) PO QID as nee ded for pain 04/05/2019 05/09/2019 Inactive levothyroxine 50 mcg tablet RxNorm: 414532 1 Tablet(s) PO QD 201804/09/2019 Inactive furosemide 40 mg tablet RxNorm: 250546 TAKE ONE TABLET BY MOUTH EVERY MORNING 03/21/2019 04/19/2019 Inactive levothyroxine 50 mcg tablet RxNorm: 862878 TAKE ONE TABLET BY M OUTH DAILY 03/21/2019 03/27/2019 Inactive Duragesic 100 mcg/hr transdermal patch RxNorm: 482769 2 Application TD Q48H for pain 03/13/2019 04/11/2019 Inactive oxycodone 15 mg tablet RxNorm: 2295373 1 Tablet(s) PO QID as nee ded for pain 03/06/2019 04/04/2019 Inactive Relistor 150 mg tablet RxNorm: 5274513 3 Tablet(s) PO QD 02/28/2019 0 05/28/2019 Inactive cyclobenzaprine 10 mg tablet RxNorm: 579677 1 Tablet(s) PO TID as needed 02/28/2019 05/28/2019 Inactive phentermine 37.5 mg tablet RxNorm: 649658 1 Tablet(s) PO QAM 201803/15/2019 Inactive Duragesic 100 mcg/hr transdermal patch RxNorm: 115516 2 Application TD Q48H for pain 02/09/2019 03/10/2019 Inactive Daliresp 500 mcg tablet RxNorm: 1155898 TAKE ONE TABLET BY MOUTH DAILY 01/31/2019 05/30/2019 Inactive Premarin 0.45 mg tablet RxNorm: 955299 1 Tablet(s) PO QD 01/31/2019 0 04/30/2019 Inactive fluoxetine 40 mg capsule RxNorm: 166328 Capsule(s) TAKE ONE CAPSULE BY MOUTH EVERY MORNING 01/31/2019 04/30/2019 Inactive levothyroxine 50 mcg tablet RxNorm: 756608 1 Tablet(s) PO QD 201804/10/2019 Inactive follow up in 3 weeks levothyroxine 50 mcg tablet RxNorm: 028868 1 Tablet(s) PO QD 201801/25/2019 Inactive follow up in 3 weeks potassium chloride ER 20 mEq tablet,extended release RxNorm: 039060 2 Tablet(s) PO BID 01/23/2019 01/08/2020 Inactive Synthroid 50 mcg tablet RxNorm: 300598 TAKE ONE TABLET BY MOUTH DAILY 01/16/2019 10/24/2019 Inactive potassium chloride ER 20 mEq tablet,extended release RxNorm: 030412 2 Tablet(s) PO BID 01/04/2019 01/22/2019 Inactive ProAir HFA 90 mcg/actuation aerosol inhaler RxNorm: 808935 INHALE ONE PUFF BY MOUTH EVERY 4 HOURS FOR WHEEZING OR SHORTNESS OF BREATH 01/04/201902/20 Inactive Request already responded to by other me ans (e.g. phone or fax) ProAir HFA 90 mcg/actuation aerosol inhaler RxNorm: 4278587 INHALE ONE PUFF BY MOUTH EVERY 4 HOURS FOR WHEEZING OR SHORTNESS OF BREATH 01/02/201912/23 Inactive gabapentin 300 mg capsule RxNorm: 377910 TAKE ONE CAPSULE BY MO UT TWICE A DAY 12/30/2018 04/06/2019 Inactive furosemide 40 mg tablet RxNorm: 671760 1 Tablet(s) PO QAM 12/26/2018 02/23/2019 Inactive Compazine 10 mg tablet RxNorm: 284310 1 Tablet(s) PO QID as nee ded for nausea 12/07/2018 12/16/2018 Inactive metolazone 2.5 mg tablet RxNorm: 865915 TAKE ONE TABLET BY MOUT H EVERY MORNING 12/05/2018 01/03/2019 Inactive metformin ER 500 mg tablet,extended release 24 hr RxNorm: 86 0975 TAKE ONE TABLET BY MOUTH DAILY 12/05/2018 01/31/2020 Inactive Synthroid 50 mcg tablet RxNorm: 969511 1 Tablet(s) PO QD 11/25/2018 0 01/03/2019 Inactive DC any other synthroid strengths. Should be 50mcg only cyclobenzaprine 10 mg tablet RxNorm: 580812 TAKE ONE TA BLET BY MOUTH THREE TIMES A DAY NEEDED 11/09/2018 02/06/2019 Inactive metolazone 2.5 mg tablet RxNorm: 423672 1 Tablet(s) PO QAM repl aces 5mg dose 11/02/2018 12/01/2018 Inactive potassium chloride ER 20 mEq tablet,extended release RxNorm: 543423 2 Tablet(s) PO QD 2018 01/02/2019 Inactive Compazine 10 mg tablet RxNorm: 492333 1 Tablet(s) PO QID as nee ded for nausea 10/18/2018 12/07/2018 Inactive furosemide 40 mg tablet RxNorm: 619976 1 Tablet(s) PO QAM 10/12/2018 12/10/2018 Inactive ondansetron 8 mg disintegrating tablet RxNorm: 932601 1 Tablet(s) PO Q6H as needed 10/11/2018 10/17/2018 Inactive scopolamine 1 mg over 3 days transdermal patch RxNorm: 08787 2 1 Application TD behind ear. Take off after three days 10/11/2018 01/02/2019 Inactive furosemide 40 mg tablet RxNorm: 804140 1 Tablet(s) PO QAM 10/10/2018 12/26/2018 Inactive metolazone 5 mg tablet RxNorm: 197097 1 Tablet(s) PO QAM 10/06/2018 1 01/03/2018 Inactive metolazone 5 mg tablet RxNorm: 034267 1 Tablet(s) PO QAM 10/06/2018 1 12/05/2017 Inactive Xtampza ER 36 mg capsule sprinkle RxNorm: 1026367 1 Capsule(s) P O BID 10/05/2018 01/02/2019 Inactive Xtampza ER 36 mg capsule sprinkle RxNorm: 4596256 1 Capsule(s) P O BID 10/05/2018 02/12/2019 Inactive omeprazole 40 mg capsule,delayed release RxNorm: 199700 TAKE ONE CAPSULE BY MOUTH DAILY 10/03/2018 12/31/2018 Inactive Duragesic 100 mcg/hr transdermal patch RxNorm: 130188 2 Application TD Q48H for pain 09/30/2018 10/29/2018 Inactive Synthroid 50 mcg tablet RxNorm: 621972 1 Tablet(s) PO QD 09/29/2018 0 11/25/2018 Inactive DC any other synthroid strengths. Should be 50mcg only Synthroid 50 mcg tablet RxNorm: 241046 1 Tablet(s) PO QD 09/29/2018 1 11/28/2017 Inactive furosemide 40 mg tablet RxNorm: 355463 2 Tablet(s) PO Q AM for 1 week then every other day for 2 weeks 09/27/2018 10/12/2018 Inactive fluoxetine 40 mg capsule RxNorm: 609623 2 Capsule(s) PO QD 09/27/20 18 10/17/2018 Inactive potassium chloride ER 20 mEq tablet,extended release RxNorm: 109267 2 Tablet(s) PO QD for 1 week then every other day for 2 weeks 09/27/2018 2018 Inactive ProAir HFA 90 mcg/actuation aerosol inhaler RxNorm: 6972731 INHALE ONE PUFF BY MOUTH EVERY 4 HOURS FOR WHEEZING OR SHORTNESS OF BREATH 09/26/201811/23 Inactive Synthroid 75 mcg tablet RxNorm: 640343 1 Tablet(s) PO QD 09/09/2018 1 Inactive Synthroid 75 mcg tablet RxNorm: 158678 1 Tablet(s) PO QD 09/09/2018 1 11/28/2017 Inactive furosemide 40 mg tablet RxNorm: 136205 1 Tablet(s) PO QD 09/06/2018 1 Inactive potassium chloride ER 20 mEq tablet,extended release RxNorm: 120635 1 Tablet(s) PO QD 09/06/2018 09/19/2018 Inactive Duragesic 100 mcg/hr transdermal patch RxNorm: 727030 2 Application TD Q48H for pain 08/30/2018 09/28/2018 Inactive gabapentin 300 mg capsule RxNorm: 508014 TAKE ONE CAPSULE BY MO [email or web address]] TWICE A DAY 08/23/2018 12/20/2018 Inactive Daliresp 500 mcg tablet RxNorm: 5021990 TAKE ONE TABLET BY MOUTH DAILY 08/23/2018 01/19/2019 Inactive Pulmicort 1 mg/2 mL suspension for nebulization RxNorm: 6168 19 USE ONE VIAL VIA NEBULIZER BY MOUTH TWICE A DAY 08/23/2018 07/11/2019 Inactive Synthroid 88 mcg tablet RxNorm: 201833 1 Tablet(s) PO QD 08/19/2018 1 Inactive Medrol (Aníbal) 4 mg tablets in a dose pack RxNorm: 888128 Tablet(s) PO take as directed 08/16/2018 09/05/2018 Inactive Relistor 150 mg tablet RxNorm: 3213305 3 Tablet(s) PO QD 08/16/2018 1 Inactive Zithromax Z-Aníbal 250 mg tablet RxNorm: 489620 Tablet(s) PO take as directed 08/16/2018 09/05/2018 Inactive cyclobenzaprine 10 mg tablet RxNorm: 569515 1 Tablet(s) PO TID as needed 08/16/2018 11/08/2018 Inactive Synthroid 88 mcg tablet RxNorm: 446493 1 Tablet(s) PO Q D NEEDS UPDATED LABS BEFORE FURTHER REFILLS 08/08/2018 08/19/2018 Inactive Premarin 0.45 mg tablet RxNorm: 107644 1 Tablet(s) PO QD 08/03/2018 0 01/31/2019 Inactive fluoxetine 20 mg capsule RxNorm: 814863 TAKE ONE CAPSULE BY [facility] DAILY 08/03/2018 09/26/2018 Inactive Xtampza ER 36 mg capsule sprinkle RxNorm: 5455046 1 Capsule(s) P O BID 08/03/2018 09/01/2018 Inactive metformin ER 500 mg tablet,extended release 24 hr RxNorm: 86 0975 1 Tablet(s) PO QD 08/03/2018 10/31/2018 Inactive Symbicort 160 mcg-4.5 mcg/actuation HFA aerosol inhaler RxNo rm: 2587488 2 Puff(s) INH BID 08/03/2018 01/29/2019 Inactive Duragesic 100 mcg/hr transdermal patch RxNorm: 021019 2 Application TD Q48H for pain 07/29/2018 08/27/2018 Inactive ProAir HFA 90 mcg/actuation aerosol inhaler RxNorm: 307011 INHALE TWO PUFFS BY MOUTH EVERY 4 HOURS FOR WHEEZING OR SHORTNESS OF BREATH 07/27/201802/2018 Inactive Relistor 150 mg tablet RxNorm: 8046195 3 Tablet(s) PO QD 07/20/2018 0 08/15/2018 Inactive metformin ER 500 mg tablet,extended release 24 hr RxNorm: 86 0975 TAKE ONE TABLET BY MOUTH DAILY 07/08/2018 08/02/2018 Inactive fluoxetine 40 mg capsule RxNorm: 474844 TAKE ONE CAPSULE BY [facility] EVERY MORNING 07/08/2018 10/05/2018 Inactive Xtampza ER 18 mg capsule sprinkle RxNorm: 9234484 1 Capsule(s) P O BID 07/08/2018 08/02/2018 Inactive Relistor 150 mg tablet RxNorm: 0623650 3 Tablet(s) PO QD 07/08/2018 0 07/12/2018 Inactive Synthroid 88 mcg tablet RxNorm: 919652 1 Tablet(s) PO Q D NEEDS UPDATED LABS BEFORE FURTHER REFILLS 06/23/2018 07/07/2018 Inactive fluoxetine 40 mg capsule RxNorm: 658811 TAKE ONE CAPSULE BY [facility] EVERY MORNING 06/15/2018 09/26/2018 Inactive orphenadrine citrate ER 100 mg tablet,extended release RxNor m: 419800 TAKE ONE TABLET BY MOUTH TWICE A DAY FOR MUSCLE SPASM 06/15/2018 08/15/2018 Desha ctive Duragesic 100 mcg/hr transdermal patch RxNorm: 612012 2 Application TD Q48H for pain 05/30/2018 06/28/2018 Inactive ProAir HFA 90 mcg/actuation aerosol inhaler RxNorm: 683706 INHALE TWO PUFFS BY MOUTH EVERY 4 HOURS FOR WHEEZING OR SHORTNESS OF BREATH 05/19/201803/2018 Inactive Chantix Continuing Month Box 1 mg tablet RxNorm: 631705 TAKE ONE TABLET BY MOUTH TWICE A DAY 05/19/2018 08/15/2018 Inactive oxycodone 10 mg tablet RxNorm: 0942766 1-2 Tablet(s) PO QID as n eeded for pain 05/19/2018 07/07/2018 Inactive gabapentin 300 mg capsule RxNorm: 665394 TAKE ONE CAPSULE BY MO [facility] [email or web address]] TWICE A DAY 05/18/2018 07/16/2018 Inactive ProAir HFA 90 mcg/actuation aerosol inhaler RxNorm: 976648 INHALE TWO PUFFS BY MOUTH EVERY 4 HOURS FOR WHEEZING OR SHORTNESS OF BREATH 05/04/201804/23 Inactive Augmentin 500 mg-125 mg tablet RxNorm: 343410 1 Tablet(s) PO BID 05/03/2018 Inactive oxycodone 10 mg tablet RxNorm: 6130264 1-2 Tablet(s) PO QID as n eeded for pain 04/21/2018 05/18/2018 Inactive Synthroid 88 mcg tablet RxNorm: 461726 1 Tablet(s) PO QD 04/15/2018 0 08/08/2018 Inactive Symbicort 160 mcg-4.5 mcg/actuation HFA aerosol inhaler RxNo rm: 5060905 2 Puff(s) INH BID 04/15/2018 04/10/2019 Inactive Premarin 0.45 mg tablet RxNorm: 817810 1 Tablet(s) PO QD 04/15/2018 0 08/03/2018 Inactive ProAir HFA 90 mcg/actuation aerosol inhaler RxNorm: 099287 2 Puff(s) INH Q4H prn for wheezing or shortness of breath 04/15/2018 05/03/2018 Inactive metformin ER 500 mg tablet,extended release 24 hr RxNorm: 86 0975 1 Tablet(s) PO QD 04/11/2018 07/07/2018 Inactive omeprazole 40 mg capsule,delayed release RxNorm: 326854 TAKE ONE CAPSULE BY MOUTH DAILY 04/10/2018 06/08/2018 Inactive Synthroid 88 mcg tablet RxNorm: 545819 1 Tablet(s) PO QD 04/04/2018 0 04/14/2018 Inactive Synthroid 88 mcg tablet RxNorm: 639159 1 Tablet(s) PO QD 04/04/2018 0 04/03/2018 Inactive orphenadrine citrate ER 100 mg tablet,extended release RxNor m: 343592 1 Tablet(s) PO BID for muscle spasm 04/04/2018 05/03/2018 Inactive metformin ER 500 mg tablet,extended release 24 hr RxNorm: 86 0975 1 Tablet(s) PO QD NEEDS UPDATED LABS 03/31/2018 04/11/2018 Inactive doxycycline hyclate 100 mg capsule RxNorm: 5185589 1 Capsule(s) PO BID 03/31/2018 04/09/2018 Inactive prednisone 20 mg tablet RxNorm: 908191 3 Tablet(s) PO T ID for 3 days then 1 po BID for 3 days then one daily for 3 days 03/31/2018 07/06/2018 Inactiv e Chantix Continuing Month Box 1 mg tablet RxNorm: 715882 TAKE ONE TABLET BY MOUTH TWICE A DAY 03/25/2018 03/30/2018 Inactive oxycodone 10 mg tablet RxNorm: 9199073 1-2 Tablet(s) PO QID as n eeded for pain 03/21/2018 04/20/2018 Inactive Daliresp 500 mcg tablet RxNorm: 4569072 1 Tablet(s) PO QD 03/15/2018 08/22/2018 Inactive metformin ER 500 mg tablet,extended release 24 hr RxNorm: 86 0975 1 Tablet(s) PO QD NEEDS UPDATED LABS 03/14/2018 03/31/2018 Inactive nystatin 100,000 unit/mL oral suspension RxNorm: 793945 5 Chio liter(s) PO QID 03/02/2018 03/15/2018 Inactive nystatin 100,000 unit/mL oral suspension RxNorm: 092314 5 Chio liter(s) PO QID 03/02/2018 03/01/2018 Inactive oxycodone 10 mg tablet RxNorm: 8270275 1-2 Tablet(s) PO QID as n eeded for pain 02/16/2018 03/20/2018 Inactive fluoxetine 20 mg capsule RxNorm: 684652 1 Capsule(s) PO QD 02/15/20 18 08/02/2018 Inactive metformin ER 500 mg tablet,extended release 24 hr RxNorm: 86 0975 1 Tablet(s) PO QD Needs updated labs 02/14/2018 03/14/2018 Inactive cefdinir 300 mg capsule RxNorm: 196458 1 Capsule(s) PO BID 01/27/20 18 02/04/2018 Inactive orphenadrine citrate ER 100 mg tablet,extended release RxNor m: 408367 1 Tablet(s) PO BID for muscle spasm 01/26/2018 04/04/2018 Inactive gabapentin 300 mg capsule RxNorm: 839916 1 Capsule(s) PO BID 201704/17/2018 Inactive oxycodone 10 mg tablet RxNorm: 9228945 1-2 Tablet(s) PO QID as n eeded for pain 01/17/2018 02/15/2018 Inactive Duragesic 100 mcg/hr transdermal patch RxNorm: 703301 2 Application TD Q48H for pain 01/17/2018 02/15/2018 Inactive gabapentin 300 mg capsule RxNorm: 193151 TAKE ONE CAPSULE BY MO UTH TWICE A DAY 12/20/2017 01/18/2018 Inactive fluoxetine 40 mg capsule RxNorm: 481083 TAKE ONE CAPSULE BY [facility] EVERY MORNING 12/15/2017 03/14/2018 Inactive OneTouch Ultra Test strips RxNorm: TEST DAILY 11/04/2017 02/01/2018 Inactive gabapentin 300 mg capsule RxNorm: 000299 1 Capsule(s) P O TID replaces BID dosing 10/26/2017 02/22/2018 Inactive oxycodone 10 mg tablet RxNorm: 9634053 1-2 Tablet(s) PO QID as n eeded for pain 10/18/2017 01/16/2018 Inactive Duragesic 100 mcg/hr transdermal patch RxNorm: 003072 2 Application TD Q48H for pain 10/18/2017 11/16/2017 Inactive gabapentin 300 mg capsule RxNorm: 716542 1 Capsule(s) PO BID 201610/25/2017 Inactive Abilify 5 mg tablet RxNorm: 704473 1 Tablet(s) PO QAM 09/23/201702/2017 Inactive gabapentin 300 mg capsule RxNorm: 754722 1 Capsule(s) PO BID 201610/17/2017 Inactive oxycodone 10 mg tablet RxNorm: 2002250 1-2 Tablet(s) PO QID as n eeded for pain 09/15/2017 10/17/2017 Inactive Duragesic 100 mcg/hr transdermal patch RxNorm: 844749 2 Application TD Q48H for pain 09/15/2017 10/14/2017 Inactive Duragesic 100 mcg/hr transdermal patch RxNorm: 218140 2 Application TD Q48H for pain 09/15/2017 10/24/2019 Inactive oxycodone 10 mg tablet RxNorm: 2775338 1-2 Tablet(s) PO QID as n eeded for pain 09/15/2017 08/15/2018 Inactive Daliresp 500 mcg tablet RxNorm: 7881663 1 Tablet(s) PO QD 09/06/2017 03/15/2018 Inactive Ventolin HFA 90 mcg/actuation aerosol inhaler RxNorm: 183328 2 Puff(s) INH Q4H as needed 09/02/2017 05/19/2018 Inactive oxycodone 10 mg tablet RxNorm: 8013109 1-2 Tablet(s) PO QID as n eeded for pain 08/17/2017 09/14/2017 Inactive Duragesic 100 mcg/hr transdermal patch RxNorm: 145111 2 Application TD Q48H for pain 08/17/2017 09/14/2017 Inactive fluoxetine 40 mg capsule RxNorm: 712183 Capsule(s) TAKE ONE CAPSULE BY MOUTH EVERY MORNING 08/17/2017 12/14/2017 Inactive Pulmicort 1 mg/2 mL suspension for nebulization RxNorm: 6168 19 1 Unit Dose INH BID Dx: COPD (J44.9) 08/16/2017 08/22/2018 Inactive gabapentin 300 mg capsule RxNorm: 316274 1 Capsule(s) PO QHS 201610/18/2017 Inactive fluoxetine 20 mg capsule RxNorm: 702621 1 Capsule(s) PO QD 08/12/20 17 02/14/2018 Inactive Abilify 2 mg tablet RxNorm: 517885 1 Tablet(s) PO QD TA KE ONE TABLET BY MOUTH DAILY 08/12/2017 10/25/2017 Inactive metformin ER 500 mg tablet,extended release 24 hr RxNorm: 86 0975 1 Tablet(s) PO QD 08/10/2017 02/14/2018 Inactive Synthroid 112 mcg tablet RxNorm: 833359 1 Tablet(s) PO QD 08/10/2017 04/15/2018 Inactive oxycodone 10 mg tablet RxNorm: 7981510 1-2 Tablet(s) PO QID as n eeded for pain 07/19/2017 08/16/2017 Inactive Duragesic 100 mcg/hr transdermal patch RxNorm: 291640 2 Application TD Q48H for pain 07/19/2017 08/16/2017 Inactive Ventolin HFA 90 mcg/actuation aerosol inhaler RxNorm: 689192 2 Puff(s) INH Q4H as needed 07/12/2017 09/02/2017 Inactive Abilify 2 mg tablet RxNorm: 071483 1 Tablet(s) PO QD TA KE ONE TABLET BY MOUTH DAILY 07/06/2017 08/11/2017 Inactive gabapentin 800 mg tablet RxNorm: 377176 1 Tablet(s) PO TID 06/22/2007/05/2017 Inactive Chantix Starting Month Box 0.5 mg (11)-1 mg (42) table ts in dose pack RxNorm: 206363 TAKE BY MOUTH INSTRUCTED - PER PACKAGE INSTRUCTIONS 06/0707/04/2017 Inactive Ventolin HFA 90 mcg/actuation aerosol inhaler RxNorm: 596486 2 Puff(s) INH Q4H as needed 05/26/2017 07/12/2017 Inactive Duragesic 100 mcg/hr transdermal patch RxNorm: 270201 2 Application TD Q48H for pain 05/19/2017 06/17/2017 Inactive oxycodone 10 mg tablet RxNorm: 0713296 1-2 Tablet(s) PO QID as n eeded for pain 05/19/2017 07/18/2017 Inactive Abilify 2 mg tablet RxNorm: 517405 TAKE ONE TABLET BY MOUTH DAILY 0 05/10/2017 07/05/2017 Inactive Synthroid 112 mcg tablet RxNorm: 630442 1 Tablet(s) PO QD 05/06/2017 08/10/2017 Inactive metformin ER 500 mg tablet,extended release 24 hr RxNorm: 86 0975 1 Tablet(s) PO QD 05/06/2017 08/10/2017 Inactive Topamax 100 mg tablet RxNorm: 782533 1 Tablet(s) PO QHS 05/06/2017 Inactive Premarin 0.45 mg tablet RxNorm: 989154 1 Tablet(s) PO QD 05/06/2017 0 04/15/2018 Inactive orphenadrine citrate ER 100 mg tablet,extended release RxNor m: 997780 1 Tablet(s) PO TID for muscle spasm--replaces methocarbamol 04/29/2017 Inactive oxycodone 10 mg tablet RxNorm: 9945704 1-2 Tablet(s) PO QID as n eeded for pain 04/21/2017 05/18/2017 Inactive Duragesic 100 mcg/hr transdermal patch RxNorm: 285764 2 Application TD Q48H for pain 04/21/2017 05/18/2017 Inactive fluoxetine 40 mg capsule RxNorm: 903273 Capsule(s) TAKE ONE CAPSULE BY MOUTH EVERY MORNING 04/20/2017 08/17/2017 Inactive Ventolin HFA 90 mcg/actuation aerosol inhaler RxNorm: 313889 2 Puff(s) INH Q4H as needed 04/05/2017 05/26/2017 Inactive Symbicort 160 mcg-4.5 mcg/actuation HFA aerosol inhaler RxNo rm: 3051328 2 Puff(s) INH BID 03/30/2017 04/15/2018 Inactive Spiriva with HandiHaler 18 mcg and inhalation capsules RxNor m: 312295 1 Capsule(s) INH QD USING HANDIHALER 03/30/2017 02/12/2019 Inactive Duragesic 100 mcg/hr transdermal patch RxNorm: 249299 2 Application TD Q48H for pain 03/18/2017 04/16/2017 Inactive oxycodone 10 mg tablet RxNorm: 4097974 1-2 Tablet(s) PO QID as n eeded for pain 03/18/2017 04/20/2017 Inactive metformin ER 500 mg tablet,extended release 24 hr RxNorm: 86 0975 Tablet(s) TAKE ONE TABLET BY MOUTH DAILY 03/01/2017 05/06/2017 Inactive Premarin 0.45 mg tablet RxNorm: 817406 Tablet(s) TAKE ONE TABLE T BY MOUTH DAILY 03/01/2017 05/06/2017 Inactive Synthroid 112 mcg tablet RxNorm: 186344 Tablet(s) TAKE ONE TABLET BY MOUTH DAILY 03/01/2017 05/06/2017 Inactive Daliresp 500 mcg tablet RxNorm: 1616198 1 Tablet(s) PO QD 03/01/2017 09/06/2017 Inactive 16.2 mg-0.1037 mg-0.0194 mg tablet RxNorm: 6226609 Tablet(s) PO PRN for gas and cramping 02/23/2017 04/28/2017 Inactive TAKE TWO TABLET S BY MOUTH THREE TIMES A DAY NEEDED FOR GAS AND CRAMPING gabapentin 800 mg tablet RxNorm: 610163 1 Tablet(s) PO TID repl aces 600mg 02/23/2017 04/28/2017 Inactive Duragesic 100 mcg/hr transdermal patch RxNorm: 335864 2 Application TD Q48H for pain 02/17/2017 03/17/2017 Inactive fluoxetine 20 mg capsule RxNorm: 698231 1 Capsule(s) PO QD 02/18/20 17 08/12/2017 Inactive oxycodone 20 mg tablet RxNorm: 7253845 1 Tablet(s) PO QID as nee ded for pain 02/17/2017 03/17/2017 Inactive Ventolin HFA 90 mcg/actuation aerosol inhaler RxNorm: 947535 INHALE TWO PUFFS BY MOUTH EVERY 4 HOURS NEEDED 02/15/2017 04/05/2017 Inactive Silvadene 1 % topical cream RxNorm: 545894 1 Application TOP BI D to burn area 02/01/2017 09/22/2017 Inactive Topamax 100 mg tablet RxNorm: 249206 TAKE ONE TABLET BY MOUTH EVERY NIGHT AT BEDTIME 01/29/2017 05/06/2017 Inactive Chantix Starting Month Box 0.5 mg (11)-1 mg (42) table ts in dose pack RxNorm: 123011 Tablet(s) PO as directed 01/29/2017 06/01/2017 Inactive Abilify 2 mg tablet RxNorm: 291352 TAKE ONE TABLET BY MOUTH DAILY 0 01/26/2017 04/25/2017 Inactive Chantix Starting Month Box 0.5 mg (11)-1 mg (42) table ts in dose pack RxNorm: 842796 Tablet(s) PO as directed 01/20/2017 01/28/2017 Inactive gabapentin 600 mg tablet RxNorm: 123443 1 Tablet(s) PO TID 01/21/20 17 02/22/2017 Inactive Chantix Continuing Month Box 1 mg tablet RxNorm: 681648 1 Table t(s) PO BID 12/31/2016 06/01/2017 Inactive Spiriva with HandiHaler 18 mcg and inhalation capsules RxNor m: 261318 INHALE THE ENTIRE CONTENTS OF 1 CAPSULE ONCE A DAY USING HANDIHALER 12/31/201607/2017 Inactive Synthroid 112 mcg tablet RxNorm: 656976 TAKE ONE TABLET BY MOUT H DAILY 12/30/2016 03/01/2017 Inactive metformin ER 500 mg tablet,extended release 24 hr RxNorm: 86 0975 TAKE ONE TABLET BY MOUTH DAILY 12/30/2016 03/01/2017 Inactive Premarin 0.45 mg tablet RxNorm: 834572 TAKE ONE TABLET BY MOUTH DAILY 12/30/2016 03/01/2017 Inactive omeprazole 40 mg capsule,delayed release RxNorm: 979485 TAKE ONE CAPSULE BY MOUTH DAILY 12/30/2016 01/25/2018 Inactive Ventolin HFA 90 mcg/actuation aerosol inhaler RxNorm: 853509 INHALE TWO PUFFS BY MOUTH EVERY 4 HOURS NEEDED 12/28/2016 02/13/2017 Inactive fluoxetine 40 mg capsule RxNorm: 832866 TAKE ONE CAPSULE BY BENOIT TH EVERY MORNING 12/15/2016 04/20/2017 Inactive Chantix Continuing Month Box 1 mg tablet RxNorm: 958771 TAKE ONE TABLET BY MOUTH TWICE A DAY 12/04/2016 12/31/2016 Inactive doxycycline hyclate 100 mg capsule RxNorm: 2189212 1 Capsule(s) PO BID 12/01/2016 12/07/2016 Inactive Levaquin 750 mg tablet RxNorm: 988922 1 Tablet(s) PO QD 12/01/2016 Inactive Abilify 2 mg tablet RxNorm: 043322 TAKE ONE TABLET BY MOUTH DAILY 0 11/25/2016 11/30/2016 Inactive Ventolin HFA 90 mcg/actuation aerosol inhaler RxNorm: 982351 INHALE TWO PUFFS BY MOUTH EVERY 4 HOURS NEEDED 11/02/2016 12/19/2016 Inactive Chantix Continuing Month Box 1 mg tablet RxNorm: 970376 Tablet(s) PO as directed 10/30/2016 12/03/2016 Inactive Symbicort 160 mcg-4.5 mcg/actuation HFA aerosol inhaler RxNo rm: 2490460 INHALE TWO PUFFS TWO TIMES A DAY 10/30/2016 03/30/2017 Inactive Abilify 2 mg tablet RxNorm: 641201 1 Tablet(s) PO QD 10/27/201611/24 Inactive amoxicillin 500 mg capsule RxNorm: 231744 1 Capsule(s) PO TID 10/1410/23/2016 Inactive amoxicillin 500 mg capsule RxNorm: 927479 1 Capsule(s) PO TID 10/1410/13/2016 Inactive Synthroid 112 mcg tablet RxNorm: 236643 TAKE ONE TABLET BY MOUT H DAILY 09/28/2016 12/29/2016 Inactive Topamax 100 mg tablet RxNorm: 625326 TAKE ONE TABLET BY MOUTH EVERY NIGHT AT BEDTIME 09/28/2016 01/28/2017 Inactive Premarin 0.45 mg tablet RxNorm: 587712 TAKE ONE TABLET BY MOUTH DAILY 09/28/2016 12/29/2016 Inactive metformin ER 500 mg tablet,extended release 24 hr RxNorm: 86 0975 TAKE ONE TABLET BY MOUTH DAILY 09/28/2016 12/29/2016 Inactive Ventolin HFA 90 mcg/actuation aerosol inhaler RxNorm: 545770 INHALE TWO PUFFS BY MOUTH EVERY 4 HOURS NEEDED 09/22/2016 10/23/2016 Inactive Pulmicort 1 mg/2 mL suspension for nebulization RxNorm: 6168 19 1 Unit Dose INH BID Dx: COPD (J44.9) 09/10/2016 08/16/2017 Inactive Pulmicort 1 mg/2 mL suspension for nebulization RxNorm: 6168 19 1 Unit Dose INH BID 09/10/2016 09/09/2016 Inactive Brovana 15 mcg/2 mL solution for nebulization RxNorm: 014561 1 Unit Dose INH BID Dx: COPD (J44.9) 09/10/2016 01/25/2018 Inactive Brovana 15 mcg/2 mL solution for nebulization RxNorm: 259193 1 Unit Dose INH BID 09/10/2016 09/09/2016 Inactive ipratropium-albuterol 0.5 mg-3 mg(2.5 mg base)/3 mL ne bulization soln RxNorm: 0049997 1 Unit Dose INH Q4H as needed Dx: COPD (J44.9) 09/10/2016 0 02/12/2019 Inactive orphenadrine citrate ER 100 mg tablet,extended release RxNor m: 045896 1 Tablet(s) PO BID for muscle spasm--replaces methocarbamol 09/09/2016 Inactive Chantix Continuing Month Box 1 mg tablet RxNorm: 932531 Tablet(s) PO as directed 09/09/2016 10/30/2016 Inactive orphenadrine citrate ER 100 mg tablet,extended release RxNor m: 349002 1 Tablet(s) PO BID for muscle spasm 09/09/2016 09/08/2016 Inactive Spiriva with HandiHaler 18 mcg and inhalation capsules RxNor m: 101621 INHALE THE ENTIRE CONTENTS OF 1 CAPSULE ONCE A DAY USING HANDIHALER 09/01/201605/2017 Inactive Daliresp 500 mcg tablet RxNorm: 6915273 1 Tablet(s) PO QD 08/27/2016 03/01/2017 Inactive prednisone 20 mg tablet RxNorm: 934287 3 Tablet(s) PO T ID for 3 days then 1 po BID for 3 days then one daily for 3 days 08/26/2016 04/28/2017 Inactiv e Wellbutrin XL 300 mg 24 hr tablet, extended release RxNorm: 141148 TAKE ONE TABLET BY MOUTH EVERY MORNING 07/29/2016 10/26/2016 Inactive gabapentin 600 mg tablet RxNorm: 632999 1 Tablet(s) PO BID 06/26/20 16 12/22/2016 Inactive fluoxetine 40 mg capsule RxNorm: 069332 TAKE ONE CAPSULE BY BENOIT TH EVERY MORNING 06/24/2016 11/20/2016 Inactive Duragesic 100 mcg/hr transdermal patch RxNorm: 526599 2 Application TD Q48H for pain 06/05/2016 07/04/2016 Inactive oxycodone 10 mg tablet RxNorm: 8544525 1-2 Tablet(s) PO QID as n eeded for pain 06/05/2016 03/17/2017 Inactive Belladonna-Phenobarbital 48 mg tablet,extended release RxNor m: 2 Tablet(s) PO TID 06/05/2016 01/19/2017 Inactive Premarin 0.45 mg tablet RxNorm: 747580 TAKE ONE TABLET BY MOUTH DAILY 05/27/2016 09/23/2016 Inactive Topamax 100 mg tablet RxNorm: 750380 TAKE ONE TABLET BY MOUTH EVERY NIGHT AT BEDTIME 05/27/2016 09/27/2016 Inactive Synthroid 112 mcg tablet RxNorm: 606883 TAKE ONE TABLET BY MOUT H DAILY 05/27/2016 09/23/2016 Inactive metformin ER 500 mg tablet,extended release 24 hr RxNorm: 86 0975 TAKE ONE TABLET BY MOUTH DAILY 05/27/2016 09/23/2016 Inactive Symbicort 160 mcg-4.5 mcg/actuation HFA aerosol inhaler RxNo rm: 5666498 INHALE TWO PUFFS TWO TIMES A DAY 05/27/2016 10/23/2016 Inactive Ventolin HFA 90 mcg/actuation aerosol inhaler RxNorm: 780228 INHALE TWO PUFFS BY MOUTH EVERY 4 HOURS NEEDED 05/21/2016 07/07/2016 Inactive omeprazole 40 mg capsule,delayed release RxNorm: 514330 1 Capsu le(s) PO QD 05/06/2016 08/03/2016 Inactive metformin ER 500 mg tablet,extended release 24 hr RxNorm: 86 0975 TAKE ONE TABLET BY MOUTH DAILY 04/23/2016 05/22/2016 Inactive methocarbamol 750 mg tablet RxNorm: 661831 2 Tablet(s) PO TID as needed for muscle spasm 04/23/2016 09/08/2016 Inactive Synthroid 112 mcg tablet RxNorm: 951874 TAKE ONE TABLET BY MOUT H DAILY 04/23/2016 05/22/2016 Inactive Spiriva with HandiHaler 18 mcg and inhalation capsules RxNor m: 412551 INHALE THE ENTIRE CONTENTS OF 1 CAPSULE ONCE A DAY USING HANDIHALER 04/09/201608/2016 Inactive Diflucan 100 mg tablet RxNorm: 008372 1 Tablet(s) PO QD 04/08/2016 Inactive doxycycline hyclate 100 mg capsule RxNorm: 2374511 1 Capsule(s) PO BID 04/08/2016 04/17/2016 Inactive doxycycline hyclate 100 mg capsule RxNorm: 2977201 1 Capsule(s) PO BID 04/08/2016 04/07/2016 Inactive Diflucan 100 mg tablet RxNorm: 479670 1 Tablet(s) PO QD 04/08/2016 Inactive ondansetron HCl 4 mg tablet RxNorm: 979994 1 Tablet(s) PO Q4H as needed for nausea and vomiting 04/08/2016 09/22/2017 Inactive gabapentin 600 mg tablet RxNorm: 991805 TAKE ONE TABLET BY MOUT H TWICE A DAY 03/24/2016 06/25/2016 Inactive Synthroid 112 mcg tablet RxNorm: 027823 TAKE ONE TABLET BY MOUT H DAILY 02/25/2016 04/22/2016 Inactive Levaquin 500 mg tablet RxNorm: 142242 1 Tablet(s) PO QD 01/23/2016 Inactive prednisone 20 mg tablet RxNorm: 839609 1 Tablet(s) PO T ID for 3 days then 1 po BID for 3 days then one daily for 3 days 01/23/2016 08/25/2016 Inactiv e [employer] Ultra Test strips RxNorm: TEST BLOOD SUGAR ONCE DAILY 250.00 01/09/2016 11/04/2017 Inactive methocarbamol 750 mg tablet RxNorm: 257966 2 Tablet(s) PO TID as needed for muscle spasm 01/09/2016 04/23/2016 Inactive lactulose 10 gram/15 mL oral solution RxNorm: 035257 [address](s) PO QD 01/09/2016 09/22/2017 Inactive TAKE 1 TABLESPOON BY MOUTH ONCE DAILY metformin ER 500 mg tablet,extended release 24 hr RxNorm: 86 0975 1 Tablet(s) PO QD 12/26/2015 04/22/2016 Inactive fluoxetine 20 mg capsule RxNorm: 500812 1 Capsule(s) PO QD 12/23/19 16 06/19/2016 Inactive Premarin 0.45 mg tablet RxNorm: 029735 TAKE ONE TABLET BY MOUTH DAILY 12/23/2015 05/20/2016 Inactive fluoxetine 40 mg capsule RxNorm: 392615 1 Capsule(s) PO QD 12/23/19 16 06/19/2016 Inactive TAKE ONE CAPSULE BY MOUTH EV JANKI MORNING azithromycin 500 mg tablet RxNorm: 772395 1 Tablet(s) PO QD 016 12/19/2015 Inactive Zofran 4 mg tablet RxNorm: 591260 1 Tablet(s) PO Q4H prn nausea /vomiting 12/13/2015 03/30/2018 Inactive azithromycin 500 mg tablet RxNorm: 820105 1 Tablet(s) PO QD 016 12/12/2015 Inactive Duragesic 100 mcg/hr transdermal patch RxNorm: 308024 2 Application TD Q48H for pain 12/09/2015 01/07/2016 Inactive oxycodone 10 mg tablet RxNorm: 5052982 1-2 Tablet(s) PO QID as n eeded for pain 12/09/2015 06/04/2016 Inactive Bactroban 2 % topical cream RxNorm: 898251 Application TOP BID 11/2208/25/2016 Inactive doxycycline hyclate 100 mg capsule RxNorm: 8002252 1 Capsule(s) PO BID 12/03/2015 12/12/2015 Inactive Topamax 100 mg tablet RxNorm: 079761 TAKE ONE TABLET BY MOUTH EVERY NIGHT AT BEDTIME 11/25/2015 05/22/2016 Inactive Symbicort 160 mcg-4.5 mcg/actuation HFA aerosol inhaler RxNo rm: 5513419 INHALE TWO PUFFS TWO TIMES A DAY 11/25/2015 05/22/2016 Inactive Synthroid 112 mcg tablet RxNorm: 340869 Tablet(s) TAKE ONE TABLET BY MOUTH DAILY 11/25/2015 02/22/2016 Inactive omeprazole 40 mg capsule,delayed release RxNorm: 138922 1 Capsu le(s) PO QD 11/12/2015 05/05/2016 Inactive oxycodone 10 mg tablet RxNorm: 0684652 1-2 Tablet(s) PO QID as n eeded for pain 11/05/2015 12/08/2015 Inactive Duragesic 100 mcg/hr transdermal patch RxNorm: 691067 2 Application TD Q48H for pain 11/05/2015 12/04/2015 Inactive omeprazole 40 mg capsule,delayed release RxNorm: 391098 1 Capsu le(s) PO QD 10/07/2015 11/11/2015 Inactive Januvia 100 mg tablet RxNorm: 274392 TAKE ONE TABLET BY MOUTH DAILY 09/11/2015 12/25/2015 Inactive Zithromax 500 mg tablet RxNorm: 292966 1 Tablet(s) PO QD 09/10/2015 1 Inactive prednisone 20 mg tablet RxNorm: 085971 1 Tablet(s) PO T ID for 3 days then 1 po BID for 3 days then one daily for 3 days 09/10/2015 08/25/2016 Inactiv e Wellbutrin XL 300 mg 24 hr tablet, extended release RxNorm: 215093 1 Tablet(s) PO QAM 09/10/2015 12/02/2015 Inactive Topamax 100 mg tablet RxNorm: 010531 TAKE ONE TABLET BY MOUTH EVERY NIGHT AT BEDTIME 09/02/2015 11/24/2015 Inactive Synthroid 112 mcg tablet RxNorm: 702406 TAKE ONE TABLET BY MOUT H DAILY 09/02/2015 11/25/2015 Inactive methocarbamol 750 mg tablet RxNorm: 964411 2 Tablet(s) PO TID as needed for muscle spasm 08/15/2015 01/09/2016 Inactive Wellbutrin XL 150 mg 24 hr tablet, extended release RxNorm: 991732 TAKE ONE TABLET BY MOUTH EVERY MORNING 08/13/2015 08/13/2015 Inactive gabapentin 600 mg tablet RxNorm: 530272 1 Tablet(s) PO BID 08/13/20 15 02/08/2016 Inactive Wellbutrin XL 300 mg 24 hr tablet, extended release RxNorm: 513831 1 Tablet(s) PO QAM 08/06/2015 09/09/2015 Inactive Wellbutrin XL 150 mg 24 hr tablet, extended release RxNorm: 803972 1 Tablet(s) PO QAM 07/18/2015 08/05/2015 Inactive prednisone 20 mg tablet RxNorm: 484940 1 Tablet(s) PO BID 07/18/2015 07/22/2015 Inactive doxycycline hyclate 100 mg tablet,delayed release RxNorm: 43 4018 1 Tablet(s) PO BID 07/18/2015 07/27/2015 Inactive pravastatin 40 mg tablet RxNorm: 903948 1 Tablet(s) PO QD NEEDS FASTING LAB 07/15/2015 07/14/2015 Inactive pravastatin 40 mg tablet RxNorm: 497224 1 Tablet(s) PO QD NEEDS FASTING LAB 07/15/2015 01/25/2018 Inactive Ventolin HFA 90 mcg/actuation aerosol inhaler RxNorm: 991443 2 Puff(s) INH Q4H 07/08/2015 07/07/2015 Inactive prn Premarin 0.45 mg tablet RxNorm: 528201 1 Tablet(s) PO QD 07/01/2015 0 12/22/2015 Inactive pravastatin 40 mg tablet RxNorm: 224347 1 Tablet(s) PO QD NEEDS FASTING LAB 06/14/2015 07/15/2015 Inactive Ventolin HFA 90 mcg/actuation aerosol inhaler RxNorm: 8662306 2 Puff(s) INH Q4H 06/06/2015 07/08/2015 Inactive prn albuterol sulfate 2.5 mg/3 mL (0.083 %) solution for n ebulization RxNorm: 810298 1 Unit Dose INH QID 05/30/2015 No Stop Date Active Duragesic 100 mcg/hr transdermal patch RxNorm: 383889 2 Application TD Q48H for pain 04/29/2015 05/28/2015 Inactive gabapentin 600 mg tablet RxNorm: 688638 1 Tablet(s) PO BID 04/11/20 15 08/13/2015 Inactive Onglyza 5 mg tablet RxNorm: 759011 1 Tablet(s) PO QD for blood suga r 04/10/2015 04/15/2015 Inactive [Brand Copay Card: RxBIN:[id number] PCN:CRISTIANA RxGRP:[id number] ID#:[id number]] methocarbamol 750 mg tablet RxNorm: 885320 2 Tablet(s) PO TID as needed for muscle spasm 03/28/2015 08/15/2015 Inactive pravastatin 40 mg tablet RxNorm: 321885 1 Tablet(s) PO QD 03/19/2015 03/18/2015 Inactive pravastatin 40 mg tablet RxNorm: 298529 1 Tablet(s) PO QD 03/19/2015 06/14/2015 Inactive lactulose 10 gram/15 mL oral solution RxNorm: 996088 [address]s) PO QD 03/07/2015 01/09/2016 Inactive TAKE 1 TABLESPOON BY MOUTH ONCE DAILY oxycodone 20 mg tablet RxNorm: 2696707 1 Tablet(s) PO QID as nee ded for pain 03/05/2015 07/08/2015 Inactive Topamax 100 mg tablet RxNorm: 835309 1 Tablet(s) PO QHS TAKE ONE TABLET BY MOUTH AT BEDTIME 02/25/2015 02/12/2019 Inactive metformin ER 500 mg tablet,extended release 24 hr RxNorm: 86 0975 1 Tablet(s) PO QD 02/11/2015 03/04/2015 Inactive take one tablet by mouth every day Daliresp 500 mcg tablet RxNorm: 7662584 1 Tablet(s) PO QD 02/11/2015 08/09/2015 Inactive Endocet 10 mg-325 mg tablet RxNorm: 6445111 1 Tablet(s) PO Q4H as needed for pain 01/23/2015 01/23/2015 Inactive gabapentin 600 mg tablet RxNorm: 317360 1 Tablet(s) PO BID 01/23/20 15 04/11/2015 Inactive methocarbamol 750 mg tablet RxNorm: 532691 2 Tablet(s) PO TID as needed for muscle spasm 01/15/2015 02/13/2015 Inactive fluoxetine 40 mg capsule RxNorm: 640529 1 Capsule(s) PO QD 01/14/20 15 12/23/2015 Inactive TAKE ONE CAPSULE BY MOUTH EV JANKI MORNING fluoxetine 20 mg capsule RxNorm: 253910 1 Capsule(s) PO QD 01/14/20 15 12/23/2015 Inactive Premarin 0.45 mg tablet RxNorm: 211777 1 Tablet(s) PO QD 01/02/2015 0 07/01/2015 Inactive Endocet 10 mg-325 mg tablet RxNorm: 8875507 1-2 Tablet(s) PO Q4H 02/12/2019 Inactive PRN PAIN Duragesic 100 mcg/hr transdermal patch RxNorm: 889904 2 Application TD Q48H for pain 12/25/2014 01/23/2015 Inactive Topamax 100 mg tablet RxNorm: 774041 1 Tablet(s) PO QHS TAKE ONE TABLET BY MOUTH AT BEDTIME 12/25/2014 02/24/2015 Inactive Tudorza Pressair 400 mcg/actuation breath activated RxNorm: 6363220 1 BID INHALE ONE PUFF INTO LUNGS TWO TIMES A DAY 12/17/2014 05/15/2015 Inactive Endocet 10 mg-325 mg tablet RxNorm: 8058144 1-2 Tablet(s) PO Q4H 12/19/2014 Inactive PRN PAIN Duragesic 100 mcg/hr transdermal patch RxNorm: 643484 2 Application TD Q48H for pain 11/20/2014 12/24/2014 Inactive [employer] Ultra Test strips RxNorm: TEST BLOOD SUGAR ONCE DAILY 250.00 11/16/2014 01/08/2016 Inactive omeprazole 40 mg capsule,delayed release RxNorm: 213084 1 Capsu le(s) PO QD 11/13/2014 11/12/2015 Inactive metformin ER 500 mg tablet,extended release 24 hr RxNorm: 86 0975 1 Tablet(s) PO QD 11/12/2014 02/11/2015 Inactive take one tablet by mouth every day Symbicort 160 mcg-4.5 mcg/actuation HFA aerosol inhaler RxNo rm: 6631739 2 Puff(s) INH BID 11/12/2014 03/11/2015 Inactive INHALE 2 PUFFS O RALLY TWO TIMES A DAY gabapentin 800 mg tablet RxNorm: 232160 1 Tablet(s) PO QD TAKE ONE TABLET BY MOUTH ONCE A DAY 10/22/2014 01/01/2015 Inactive Endocet 10 mg-325 mg tablet RxNorm: 7075633 1-2 Tablet(s) PO Q4H 11/15/2014 Inactive PRN PAIN Duragesic 100 mcg/hr transdermal patch RxNorm: 225740 2 Application TD Q48H for pain 10/17/2014 11/19/2014 Inactive gabapentin 800 mg tablet RxNorm: 310353 1 Tablet(s) PO QD TAKE ONE TABLET BY MOUTH ONCE A DAY 10/04/2014 10/21/2014 Inactive Premarin 0.9 mg tablet RxNorm: 861552 1 Tablet(s) PO QD TAKE ONE TABLET BY MOUTH ONCE A DAY 10/04/2014 01/01/2015 Inactive Spiriva with HandiHaler 18 mcg & inhalation capsules RxNorm: 612204 1 Capsule(s) INH QD 10/03/2014 04/30/2015 Inactive Levaquin 500 mg tablet RxNorm: 743633 1 Tablet(s) PO QD 10/03/2014 Inactive prednisone 20 mg tablet RxNorm: 121945 1 Tablet(s) PO QD 10/03/201412/09/2013 Inactive Duragesic 100 mcg/hr transdermal patch RxNorm: 308375 2 Application TD Q48H for pain 09/18/2014 10/16/2014 Inactive Endocet 10 mg-325 mg tablet RxNorm: 0281055 1-2 Tablet(s) PO Q4H 10/16/2014 Inactive PRN PAIN Synthroid 112 mcg tablet RxNorm: 897770 1 Tablet(s) QD 09/10/2014 Inactive Synthroid 112 mcg tablet RxNorm: 983432 TAKE ONE TABLET BY MOUTH ONE TIME A DAY. NEEDS LABS 09/10/2014 02/06/2015 Inactive omeprazole 40 mg capsule,delayed release RxNorm: 353333 1 Capsu le(s) PO QD 09/03/2014 11/13/2014 Inactive omeprazole 40 mg capsule,delayed release RxNorm: 675158 1 Capsu le(s) PO QD 09/03/2014 09/02/2014 Inactive Spiriva with HandiHaler 18 mcg & inhalation capsules RxNorm: 737212 1 Capsule(s) INH QD 08/27/2014 10/02/2014 Inactive gabapentin 600 mg tablet RxNorm: 876383 1 Tablet(s) PO BID 08/27/20 14 10/22/2014 Inactive Endocet 10 mg-325 mg tablet RxNorm: 3297621 1-2 Tablet(s) PO Q4H 09/17/2014 Inactive PRN PAIN fentanyl 100 mcg/hr transdermal patch RxNorm: 743307 1 Unit Dos e TD QD 08/21/2014 09/19/2014 Inactive Daliresp 500 mcg tablet RxNorm: 6270883 1 Tablet(s) PO QD 08/13/2014 02/11/2015 Inactive Synthroid 112 mcg tablet RxNorm: 015941 TAKE ONE TABLET BY MOUTH ONE TIME A DAY. NEEDS LABS 08/10/2014 09/10/2014 Inactive Endocet 10 mg-325 mg tablet RxNorm: 7448687 1-2 Tablet(s) PO Q4H 08/17/2014 Inactive PRN PAIN Duragesic 100 mcg/hr transdermal patch RxNorm: 449894 2 Application TD Q48H for pain 07/19/2014 09/17/2014 Inactive fluoxetine 40 mg capsule RxNorm: 661711 1 Capsule(s) PO QD 07/17/20 14 01/14/2015 Inactive TAKE ONE CAPSULE BY MOUTH EV JANKI MORNING fluoxetine 20 mg capsule RxNorm: 308913 1 Capsule(s) PO QD 07/17/20 14 01/14/2015 Inactive Spiriva with HandiHaler 18 mcg & inhalation capsules RxNorm: 887451 1 Capsule(s) INH QD 07/17/2014 08/26/2014 Inactive INHALE CONTENTS OF 1 CAPSULE(S) WITH HANDIHALER ONCE DAILY Zofran 4 mg tablet RxNorm: 008680 1 Tablet(s) PO Q4H prn nausea 07/25/2014 Inactive Synthroid 112 mcg tablet RxNorm: 980458 1 Tablet(s) PO QD 07/09/2014 07/09/2014 Inactive methocarbamol 750 mg tablet RxNorm: 608909 2 Tablet(s) PO TID as needed for muscle spasm 07/09/2014 09/06/2014 Inactive Synthroid 112 mcg tablet RxNorm: 780277 1 Tablet(s) PO QD - nee d labs 07/09/2014 08/07/2014 Inactive Medrol (Aníbal) 4 mg tablets in a dose pack RxNorm: 607898 6 Tablet(s) PO QD --then as directed 07/03/2014 07/08/2014 Inactive Tudorza Pressair 400 mcg/actuation breath activated RxNorm: 1269869 1 Puff(s) INH BID 07/03/2014 12/17/2014 Inactive cefdinir 300 mg capsule RxNorm: 821505 1 Capsule(s) PO BID 07/03/20 14 07/12/2014 Inactive Topamax 100 mg tablet RxNorm: 482378 Tablet(s) TAKE ONE TABLET BY MOUTH AT BEDTIME 07/02/2014 02/25/2015 Inactive Duragesic 100 mcg/hr transdermal patch RxNorm: 031426 2 Application TD Q48H for pain 06/25/2014 07/18/2014 Inactive Endocet 10 mg-325 mg tablet RxNorm: 9135079 1-2 Tablet(s) PO Q4H 07/18/2014 Inactive PRN PAIN metformin ER 500 mg tablet,extended release 24 hr RxNorm: 86 0975 1 Tablet(s) PO QD Needs labs 06/18/2014 07/01/2014 Inactive take one tablet by mouth every day Duragesic 100 mcg/hr transdermal patch RxNorm: 457560 2 Application TD Q48H for pain 05/22/2014 06/24/2014 Inactive Synthroid 112 mcg tablet RxNorm: 633662 1 Tablet(s) PO QD 05/22/2014 07/09/2014 Inactive Endocet 10 mg-325 mg tablet RxNorm: 5543897 1-2 Tablet(s) PO Q4H 06/20/2014 Inactive PRN PAIN Endocet 10 mg-325 mg tablet RxNorm: 2925909 1-2 Tablet(s) PO Q4H 05/21/2014 Inactive PRN PAIN Duragesic 100 mcg/hr transdermal patch RxNorm: 086213 2 Application TD Q48H for pain 04/25/2014 05/21/2014 Inactive Daliresp 500 mcg tablet RxNorm: 4157986 1 Tablet(s) PO QD 04/24/2014 08/13/2014 Inactive Symbicort 160 mcg-4.5 mcg/actuation HFA aerosol inhaler RxNo rm: 3440005 2 Puff(s) INH BID 04/24/2014 08/21/2014 Inactive INHALE 2 PUFFS O RALLY TWO TIMES A DAY metformin ER 500 mg tablet,extended release 24 hr RxNorm: 86 0975 1 Tablet(s) PO QD 04/24/2014 11/12/2014 Inactive TAKE ONE TABLET BY MOUTH EVERY DAY [AttnRPh:Saving Apply/Adjudicate RxGRP:LDMGRP RxBIN:[id number] RxPCN:2012 PCode:01 ID#:[id number]] Symbicort 160 mcg-4.5 mcg/actuation HFA aerosol inhaler RxNo rm: 8479957 2 Puff(s) INH BID 04/24/2014 11/12/2014 Inactive INHALE 2 PUFFS O RALLY TWO TIMES A DAY Premarin 0.9 mg tablet RxNorm: 644891 1 Tablet(s) PO QD 04/24/2014 Inactive TAKE ONE TABLET BY MOUTH EVERY DAY metformin ER 500 mg tablet,extended release 24 hr RxNorm: 86 0975 1 Tablet(s) PO QD Needs labs 04/24/2014 06/18/2014 Inactive TAKE ONE TABLET BY MOUTH EVERY DAY [AttnRPh:Saving Apply/Adjudicate RxGRP:LDMGRP RxBIN:[id number] RxPCN:2012 PCode:01 ID#:[id number]] gabapentin 800 mg tablet RxNorm: 592298 1 Tablet(s) PO QD 04/24/2014 10/04/2014 Inactive TAKE ONE TABLET BY MOUTH EVERY DAY Topamax 100 mg tablet RxNorm: 774532 1 Tablet(s) PO QHS 04/17/2014 Inactive Topamax 100 mg tablet RxNorm: 973498 TAKE ONE TABLET BY MOUTH A T BEDTIME 04/17/2014 07/01/2014 Inactive Tudorza Pressair 400 mcg/actuation breath activated RxNorm: 8992971 1 Puff(s) INH BID 04/11/2014 07/02/2014 Inactive Duragesic 100 mcg/hr transdermal patch RxNorm: 808184 2 Application TD Q48H for pain 03/27/2014 04/24/2014 Inactive Endocet 10 mg-325 mg tablet RxNorm: 4815232 1-2 Tablet(s) PO Q4H 04/24/2014 Inactive PRN PAIN Robaxin 750 mg tablet RxNorm: 273096 2 Tablet(s) PO TID as need ed for spasm 02/23/2014 03/28/2015 Inactive Duragesic 100 mcg/hr transdermal patch RxNorm: 553852 2 Application TD Q48H for pain 02/23/2014 No Stop Date Active Endocet 10 mg-325 mg tablet RxNorm: 1305428 1-2 Tablet(s) PO Q4H 03/23/2014 Inactive PRN PAIN Synthroid 112 mcg tablet RxNorm: 669657 1 Tablet(s) PO QD TAKE ONE TABLET BY MOUTH EVERY DAY 02/15/2014 05/22/2014 Inactive Zithromax 500 mg tablet RxNorm: 746996 1 Tablet(s) PO QD 01/30/2014 0 02/05/2014 Inactive Diflucan 100 mg tablet RxNorm: 408977 1 Tablet(s) PO QD 01/30/2014 Inactive prednisone 20 mg tablet RxNorm: 545373 1 Tablet(s) PO BID 01/30/2014 02/05/2014 Inactive fluoxetine 40 mg capsule RxNorm: 954555 1 Capsule(s) PO QD 01/23/20 14 07/16/2014 Inactive TAKE ONE CAPSULE BY MOUTH EV JANKI MORNING fluoxetine 40 mg capsule RxNorm: 098842 1 Capsule(s) PO QD 01/23/20 14 07/17/2014 Inactive TAKE ONE CAPSULE BY MOUTH EV JANKI MORNING cefdinir 300 mg capsule RxNorm: 134644 1 Capsule(s) PO BID 01/16/20 14 01/29/2014 Inactive Zithromax 500 mg tablet RxNorm: 221382 1 Tablet(s) PO QD 01/16/2014 0 01/22/2014 Inactive prednisone 20 mg tablet RxNorm: 841864 1 Tablet(s) PO BID 01/16/2014 01/22/2014 Inactive Spiriva with HandiHaler 18 mcg and inhalation capsules RxNor m: 630884 1 Capsule(s) INH QD 12/18/2013 07/17/2014 Inactive INHALE CONTENT S OF 1 CAPSULE(S) WITH HANDIHALER ONCE DAILY fluoxetine 20 mg capsule RxNorm: 589949 1 Capsule(s) PO QD 12/18/19 14 06/15/2014 Inactive Spiriva with HandiHaler 18 mcg & inhalation capsules RxNorm: 305951 1 Capsule(s) INH QD 12/18/2013 06/15/2014 Inactive INHALE CONTENTS OF 1 CAPSULE(S) WITH HANDIHALER ONCE DAILY fluoxetine 20 mg capsule RxNorm: 899774 1 Capsule(s) PO QD 12/18/19 14 07/17/2014 Inactive cefdinir 300 mg capsule RxNorm: 759782 2 Capsule(s) PO QD 12/12/2013 12/21/2013 Inactive Duragesic 100 mcg/hr transdermal patch RxNorm: 170881 2 Application TD Q48H for pain 12/08/2013 12/07/2013 Inactive Topamax 100 mg tablet RxNorm: 428211 1 Tablet(s) PO QHS 12/04/2013 Inactive Endocet 10 mg-325 mg tablet RxNorm: 9081071 1-2 Tablet(s) PO Q4H 12/26/2013 Inactive PRN PAIN Robaxin 750 mg tablet RxNorm: 622259 2 Tablet(s) PO TID as need ed for spasm 11/07/2013 01/05/2014 Inactive gabapentin 800 mg tablet RxNorm: 333670 1 Tablet(s) PO QD 10/16/2013 04/24/2014 Inactive TAKE ONE TABLET BY MOUTH EVERY DAY Symbicort 160 mcg-4.5 mcg/actuation HFA aerosol inhaler RxNo rm: 4353027 2 Puff(s) INH BID 10/16/2013 04/24/2014 Inactive INHALE 2 PUFFS O RALLY TWO TIMES A DAY Premarin 0.9 mg tablet RxNorm: 692058 1 Tablet(s) PO QD 10/16/2013 Inactive TAKE ONE TABLET BY MOUTH EVERY DAY metformin ER 500 mg tablet,extended release 24 hr RxNorm: 86 0975 1 Tablet(s) PO QD 10/16/2013 04/24/2014 Inactive TAKE ONE TABLET BY MOUTH EVERY DAY Daliresp 500 mcg tablet RxNorm: 6935171 1 Tablet(s) PO QD 10/16/2013 04/24/2014 Inactive Robaxin 750 mg tablet RxNorm: 903798 2 Tablet(s) PO TID as need ed for spasm 10/10/2013 11/06/2013 Inactive Duragesic 100 mcg/hr transdermal patch RxNorm: 932713 2 Application TD Q48H for pain 10/09/2013 No Stop Date Active Soma 350 mg tablet RxNorm: 372132 1 Tablet(s) PO TID 09/27/201310/09 Inactive TAKE ONE TABLET BY MOUTH THREE TIMES A D AY lactulose 10 gram/15 mL oral solution RxNorm: 833410 [address](s) PO QD 09/13/2013 03/07/2015 Inactive TAKE 1 TABLESPOON BY MOUTH ONCE DAILY Duragesic 100 mcg/hr transdermal patch RxNorm: 447077 2 Application TD Q48H for pain 09/06/2013 No Stop Date Active Endocet 10 mg-325 mg tablet RxNorm: 4804043 1-2 Tablet(s) PO Q4H 09/27/2013 Inactive PRN PAIN lancets 28 gauge RxNorm: Miscellaneous As needed for blo od glucose sticks 08/24/2013 No Stop Date Active 16.2 mg-0.1037 mg-0.0194 mg tablet RxNorm: 7260633 Tablet(s) PO PRN for gas and cramping 08/24/2013 01/19/2017 Inactive TAKE TWO TABLET S BY MOUTH THREE TIMES A DAY NEEDED FOR GAS AND CRAMPING Topamax 100 mg tablet RxNorm: 452145 1 Tablet(s) PO QHS 07/31/2013 Inactive Diflucan 100 mg tablet RxNorm: 448671 1 Tablet(s) PO QD 07/27/2013 Inactive cefdinir 300 mg capsule RxNorm: 250856 1 Capsule(s) PO BID 07/26/20 13 08/08/2013 Inactive Daliresp 500 mcg tablet RxNorm: 8091727 1 Tablet(s) PO QD 07/25/2013 10/15/2013 Inactive fluoxetine 40 mg capsule RxNorm: 833895 1 Capsule(s) PO QD 07/25/20 13 01/22/2014 Inactive TAKE ONE CAPSULE BY MOUTH EV JANKI MORNING Senokot-S 8.6 mg-50 mg tablet RxNorm: 5385207 1 Tablet(s) PO BID 10/25/2013 Inactive doxycycline hyclate 100 mg capsule RxNorm: 2072531 1 Capsule(s) PO BID 06/28/2013 07/07/2013 Inactive prednisone 20 mg tablet RxNorm: 752094 1 Tablet(s) PO BID 06/28/2013 07/04/2013 Inactive Zofran 4 mg tablet RxNorm: 239005 1 Tablet(s) PO Q4H prn nausea 03/201307/05/2013 Inactive Spiriva with HandiHaler 18 mcg & inhalation capsules RxNorm: 620296 1 Capsule(s) INH QD 06/26/2013 12/18/2013 Inactive INHALE CONTENTS OF 1 CAPSULE(S) WITH HANDIHALER ONCE DAILY Synthroid 112 mcg tablet RxNorm: 446945 1 Tablet(s) PO QD TAKE ONE TABLET BY MOUTH EVERY DAY 06/19/2013 02/15/2014 Inactive fluoxetine 20 mg capsule RxNorm: 440692 1 Capsule(s) PO QD 06/19/20 13 12/18/2013 Inactive Ventolin HFA 90 mcg/actuation Aerosol Inhaler RxNorm: 7612169 2 Puff(s) INH Q4H 06/05/2013 No Stop Date Active prn Soma 350 mg tablet RxNorm: 892639 1 Tablet(s) PO TID 06/05/201307/04 Inactive TAKE ONE TABLET BY MOUTH THREE TIMES A D AY prednisone 20 mg tablet RxNorm: 518270 1 Tablet(s) PO QD 05/31/2013 0 06/06/2013 Inactive Topamax 100 mg tablet RxNorm: 703667 1 Tablet(s) PO QHS 05/22/2013 Inactive Levaquin 500 mg tablet RxNorm: 015140 1 Tablet(s) PO QD 05/03/2013 Inactive Diflucan 100 mg tablet RxNorm: 550320 1 Tablet(s) PO QD 05/03/2013 Inactive Daliresp 500 mcg tablet RxNorm: 6154727 1 Tablet(s) PO QD 05/01/2013 07/24/2013 Inactive Daliresp 500 mcg tablet RxNorm: 9532379 1 Tablet(s) PO QD 05/01/2013 04/30/2013 Inactive gabapentin 800 mg tablet RxNorm: 085376 1 Tablet(s) PO QD 04/10/2013 10/06/2013 Inactive TAKE ONE TABLET BY MOUTH EVERY DAY metformin ER 500 mg tablet,extended release 24 hr RxNorm: 86 0977 1 Tablet(s) PO QD 04/10/2013 10/06/2013 Inactive TAKE ONE TABLET BY MOUTH EVERY DAY Premarin 0.9 mg tablet RxNorm: 062512 1 Tablet(s) PO QD 04/10/2013 Inactive TAKE ONE TABLET BY MOUTH EVERY DAY Symbicort 160 mcg-4.5 mcg/actuation HFA aerosol inhaler RxNo rm: 9920121 2 Puff(s) INH BID 04/10/2013 10/06/2013 Inactive INHALE 2 PUFFS O RALLY TWO TIMES A DAY Synthroid 112 mcg tablet RxNorm: 636418 1 Tablet(s) PO QD TAKE ONE TABLET BY MOUTH EVERY DAY 04/10/2013 06/18/2013 Inactive Ventolin HFA 90 mcg/actuation Aerosol Inhaler RxNorm: 981564 2 Puff(s) INH Q4H 04/10/2013 No Stop Date Active prn fentanyl 100 mcg/hr transdermal patch RxNorm: 743799 1 Unit Dos e TD QD 04/03/2013 05/02/2013 Inactive Endocet 10 mg-325 mg tablet RxNorm: 9349725 1-2 Tablet(s) PO Q4H 05/02/2013 Inactive PRN PAIN Topamax 100 mg tablet RxNorm: 339503 1 Tablet(s) PO QHS 03/13/2013 Inactive Reglan 10 mg tablet RxNorm: 129989 1 Tablet(s) PO QID b efore meals and at bedtime 03/13/2013 04/09/2015 Inactive fluoxetine 20 mg capsule RxNorm: 546867 1 Capsule(s) PO QD 02/28/20 13 05/27/2013 Inactive Ventolin HFA 90 mcg/actuation Aerosol Inhaler RxNorm: 171347 2 Puff(s) INH Q4H 02/13/2013 No Stop Date Active prn fluoxetine 40 mg capsule RxNorm: 036562 1 Capsule(s) PO QD 01/31/20 13 07/24/2013 Inactive TAKE ONE CAPSULE BY MOUTH EV JANKI MORNING Soma 350 mg tablet RxNorm: 861092 1 Tablet(s) PO TID 01/20/201302/18 Inactive TAKE ONE TABLET BY MOUTH THREE TIMES A D AY Endocet 10 mg-325 mg tablet RxNorm: 0779959 1-2 Tablet(s) PO Q4H 02/06/2013 Inactive PRN PAIN MS Contin 200 mg tablet,extended release RxNorm: 606224 1 Table t(s) PO BID 01/18/2013 02/06/2013 Inactive Ventolin HFA 90 mcg/actuation Aerosol Inhaler RxNorm: 331003 2 Puff(s) INH Q4H 01/04/2013 No Stop Date Active prn Spiriva with HandiHaler 18 mcg & inhalation capsules RxNorm: 989892 1 Capsule(s) INH QD 12/29/2012 06/25/2013 Inactive INHALE CONTENTS OF 1 CAPSULE(S) WITH HANDIHALER ONCE DAILY Spiriva with HandiHaler 18 mcg & inhalation capsules RxNorm: 362609 1 Capsule(s) INH QD 12/26/2012 12/28/2012 Inactive INHALE CONTENTS OF 1 CAPSULE(S) WITH HANDIHALER ONCE DAILY Synthroid 112 mcg tablet RxNorm: 890864 Tablet(s) PO TA KE ONE TABLET BY MOUTH EVERY DAY 12/26/2012 04/09/2013 Inactive Endocet 10 mg-325 mg tablet RxNorm: 7316998 1-2 Tablet(s) PO Q4H 01/17/2013 Inactive PRN PAIN MS Contin 200 mg tablet,extended release RxNorm: 962753 1 Table t(s) PO BID 12/21/2012 01/17/2013 Inactive fluoxetine 20 mg capsule RxNorm: 254618 1 Capsule(s) PO QD 12/06/19 13 02/26/2013 Inactive Synthroid 112 mcg tablet RxNorm: 882102 1 Tablet(s) PO QD 12/06/2012 02/12/2019 Inactive TAKE ONE TABLET BY MOUTH EVERY DAY Ventolin HFA 90 mcg/actuation Aerosol Inhaler RxNorm: 807079 2 Puff(s) INH Q4H 12/06/2012 No Stop Date Active prn Reglan 10 mg tablet RxNorm: 015573 1 Tablet(s) PO QID b efore meals and at bedtime 11/24/2012 03/12/2013 Inactive Topamax 100 mg tablet RxNorm: 817534 1 Tablet(s) PO QHS 11/16/2012 Inactive Ventolin HFA 90 mcg/actuation Aerosol Inhaler RxNorm: 030154 2 Puff(s) INH Q4H 11/09/2012 No Stop Date Active prn gabapentin 800 mg tablet RxNorm: 955331 1 Tablet(s) PO QD 10/27/2012 04/09/2013 Inactive TAKE ONE TABLET BY MOUTH EVERY DAY metformin ER 500 mg tablet,extended release 24 hr RxNorm: 86 0977 1 Tablet(s) PO QD 10/27/2012 04/09/2013 Inactive TAKE ONE TABLET BY MOUTH EVERY DAY Symbicort 160 mcg-4.5 mcg/actuation HFA Aerosol Inhaler RxNo rm: 0055971 2 Puff(s) INH BID 10/27/2012 04/09/2013 Inactive INHALE 2 PUFFS O RALLY TWO TIMES A DAY Premarin 0.9 mg tablet RxNorm: 212585 1 Tablet(s) PO QD 10/27/2012 Inactive TAKE ONE TABLET BY MOUTH EVERY DAY Endocet 10 mg-325 mg tablet RxNorm: 0366252 1-2 Tablet(s) PO Q4H 11/24/2012 Inactive PRN PAIN MS Contin 200 mg tablet,extended release RxNorm: 157873 1 Table t(s) PO BID 10/26/2012 11/24/2012 Inactive Soma 350 mg tablet RxNorm: 435467 1 Tablet(s) PO TID 10/04/201211/02 Inactive TAKE ONE TABLET BY MOUTH THREE TIMES A D AY Ventolin HFA 90 mcg/actuation Aerosol Inhaler RxNorm: 461841 2 Puff(s) INH Q4H 10/03/2012 No Stop Date Active prn Daliresp 500 mcg tablet RxNorm: 5817340 1 Tablet(s) PO QD 09/28/2012 09/27/2012 Inactive Daliresp 500 mcg tablet RxNorm: 0147558 1 Tablet(s) PO QD 09/28/2012 04/25/2013 Inactive fluoxetine 20 mg capsule RxNorm: 622360 1 Capsule(s) PO QD 09/05/2012/06/2012 Inactive Topamax 50 mg tablet RxNorm: 592714 Tablet(s) PO for 1w k then 1 po q HS for 1wk then 2 po q HS 08/29/2012 09/27/2012 Inactive TAKE 1/2 TABLET BY MOUTH AT BEDTIME FOR 1 WEEK, THEN 1 TABLET AT BEDTIME FOR 1 WEEK, THEN 2 TABLETS AT BEDTIME Topamax 100 mg tablet RxNorm: 651928 1 Tablet(s) PO QHS 08/29/2012 Inactive Ventolin HFA 90 mcg/actuation Aerosol Inhaler RxNorm: 392124 2 Puff(s) INH Q4H 08/19/2012 No Stop Date Active prn Ventolin HFA 90 mcg/actuation Aerosol Inhaler RxNorm: 938123 2 Puff(s) INH Q4H 08/15/2012 No Stop Date Active prn Synthroid 112 mcg tablet RxNorm: 914977 1 Tablet(s) PO QD 08/10/2012 11/07/2012 Inactive TAKE ONE TABLET BY MOUTH EVERY DAY Synthroid 112 mcg tablet RxNorm: 204911 1 Tablet(s) PO QD 08/01/2012 08/09/2012 Inactive TAKE ONE TABLET BY MOUTH EVERY DAY Reglan 10 mg tablet RxNorm: 331402 1 Tablet(s) PO QID b efore meals and at bedtime 08/01/2012 11/23/2012 Inactive fluoxetine 40 mg capsule RxNorm: 735994 1 Capsule(s) PO QD 08/01/2001/27/2013 Inactive TAKE ONE CAPSULE BY MOUTH EV JANKI MORNING Ventolin HFA 90 mcg/actuation Aerosol Inhaler RxNorm: 474077 2 Puff(s) INH Q4H 08/01/2012 No Stop Date Active prn Soma 350 mg tablet RxNorm: 347556 1 Tablet(s) PO TID 07/20/201208/18 Inactive TAKE ONE TABLET BY MOUTH THREE TIMES A D AY Spiriva with HandiHaler 18 mcg & inhalation capsules RxNorm: 389773 1 Capsule(s) INH 07/01/2012 12/25/2012 Inactive INHALE CONTENTS OF 1 CAPSULE(S) WITH HANDIHALER ONCE DAILY Zithromax 250 mg Tab RxNorm: 604780 2 Tablet(s) PO QD 06/28/201206/22 Inactive MS Contin 200 mg tablet,extended release RxNorm: 781656 1 Table t(s) PO BID 06/28/2012 07/27/2012 Inactive Endocet 10 mg-325 mg tablet RxNorm: 2987978 1-2 Tablet(s) PO Q4H 07/27/2012 Inactive PRN PAIN Topamax 100 mg tablet RxNorm: 149809 1 Tablet(s) PO QHS 06/28/2012 Inactive 16.2 mg-0.1037 mg-0.0194 mg tablet RxNorm: 7751506 Tablet(s) PO PRN for gas and cramping 06/08/2012 08/23/2013 Inactive TAKE TWO TABLET S BY MOUTH THREE TIMES A DAY NEEDED FOR GAS AND CRAMPING Ventolin HFA 90 mcg/actuation Aerosol Inhaler RxNorm: 120810 2 Puff(s) INH Q4H 05/23/2012 No Stop Date Active prn Ventolin HFA 90 mcg/actuation Aerosol Inhaler RxNorm: 152286 2 Puff(s) INH Q4H 05/11/2012 No Stop Date Active prn Synthroid 112 mcg tablet RxNorm: 842402 1 Tablet(s) PO QD 05/09/2012 07/31/2012 Inactive TAKE ONE TABLET BY MOUTH EVERY DAY gabapentin 800 mg tablet RxNorm: 376245 1 Tablet(s) PO QD 05/09/2012 10/26/2012 Inactive TAKE ONE TABLET BY MOUTH EVERY DAY fluoxetine 40 mg capsule RxNorm: 369935 1 Capsule(s) PO QD 05/09/2007/31/2012 Inactive TAKE ONE CAPSULE BY MOUTH EV JANKI MORNING metformin ER 500 mg tablet,extended release 24 hr RxNorm: 86 0977 1 Tablet(s) PO QD 05/09/2012 10/26/2012 Inactive TAKE ONE TABLET BY MOUTH EVERY DAY Premarin 0.9 mg tablet RxNorm: 164753 1 Tablet(s) PO QD 05/09/2012 Inactive TAKE ONE TABLET BY MOUTH EVERY DAY Symbicort 160 mcg-4.5 mcg/actuation HFA Aerosol Inhaler RxNo rm: 4745269 2 Puff(s) INH BID 05/09/2012 10/26/2012 Inactive INHALE 2 PUFFS O RALLY TWO TIMES A DAY Endocet 10 mg-325 mg Tab RxNorm: 0873254 1-2 Tablet(s) PO Q4H 04/2705/26/2012 Inactive PRN PAIN MS Contin 200 mg Tab RxNorm: 995739 1 Tablet(s) PO BID 04/26/201202/2012 Inactive Ventolin HFA 90 mcg/actuation Aerosol Inhaler RxNorm: 969381 2 Puff(s) INH Q4H 04/25/2012 05/10/2012 Inactive prn Soma 350 mg tablet RxNorm: 622902 2 Tablet(s) PO TID 04/19/201207/19 Inactive TAKE ONE TABLET BY MOUTH THREE TIMES A D AY Ventolin HFA 90 mcg/actuation Aerosol Inhaler RxNorm: 070898 2 Puff(s) INH Q4H 04/12/2012 04/24/2012 Inactive prn Reglan 10 mg tablet RxNorm: 174461 1 Tablet(s) PO QID b efore meals and at bedtime 04/11/2012 07/31/2012 Inactive MS Contin 200 mg Tab RxNorm: 526028 1 Tablet(s) PO BID 03/30/201202/2012 Inactive Endocet 10 mg-325 mg Tab RxNorm: 5781647 1-2 Tablet(s) PO Q4H 03/3004/26/2012 Inactive PRN PAIN MS Contin 200 mg Tab RxNorm: 151644 1 Tablet(s) PO BID 03/02/201206/2012 Inactive Endocet 10 mg-325 mg Tab RxNorm: 8728522 1-2 Tablet(s) PO Q4H 03/0203/29/2012 Inactive PRN PAIN Daliresp 500 mcg tablet RxNorm: 0899011 1 Tablet(s) PO QD 03/01/2012 09/28/2012 Inactive MS Contin 200 mg Tab RxNorm: 852320 1 Tablet(s) PO BID 02/02/201208/2012 Inactive Endocet 10 mg-325 mg Tab RxNorm: 0557322 1-2 Tablet(s) PO Q4H 02/0103/01/2012 Inactive PRN PAIN fluoxetine 40 mg capsule RxNorm: 658692 1 Capsule(s) PO QD 02/02/2008/01/2012 Inactive TAKE ONE CAPSULE BY MOUTH EV JANKI MORNING Synthroid 112 mcg Tab RxNorm: 612794 1 Tablet(s) PO QD 01/18/2012 Inactive TAKE ONE TABLET BY MOUTH EVERY DAY lactulose 10 gram/15 mL oral solution RxNorm: 971821 [address]s) PO QD 01/18/2012 No Stop Date Active TAKE 1 TABLESPOON BY MOUTH ONCE DAILY Ventolin HFA 90 mcg/actuation Aerosol Inhaler RxNorm: 458649 2 Puff(s) INH Q4H 01/18/2012 04/11/2012 Inactive prn MS Contin 200 mg Tab RxNorm: 109931 1 Tablet(s) PO BID 01/05/201210/2012 Inactive Endocet 10 mg-325 mg Tab RxNorm: 7339658 1-2 Tablet(s) PO Q4H 01/0502/01/2012 Inactive PRN PAIN ProAir HFA 90 mcg/Actuation Aerosol Inhaler RxNorm: 504786 2 Pu ff(s) INH Q4H 12/21/2011 No Stop Date Active prn for wheezing or shortness of breath Spiriva with HandiHaler 18 mcg & inhalation Caps RxNorm: 580 261 1 Capsule(s) INH 12/21/2011 06/30/2012 Inactive INHALE CONTENTS OF 1 CAPSULE(S) WITH HANDIHALER ONCE DAILY Reglan 10 mg Tab RxNorm: 231736 1 Tablet(s) PO QID before meals and at bedtime 12/21/2011 04/10/2012 Inactive Synthroid 112 mcg Tab RxNorm: 923252 1 Tablet(s) PO QD 12/21/2011 Inactive TAKE ONE TABLET BY MOUTH EVERY DAY Endocet 10 mg-325 mg Tab RxNorm: 1745330 1-2 Tablet(s) PO Q4H 11/2512/24/2011 Inactive PRN PAIN MS Contin 200 mg Tab RxNorm: 546164 1 Tablet(s) PO BID 11/25/201112/2011 Inactive lactulose 10 gram/15 mL Oral Soln RxNorm: 820192 Milliliter(s) PO 1 No Stop Date Active TAKE 1 TABLESPOON BY MOUTH O NCE DAILY lactulose 10 gram/15 mL Oral Soln RxNorm: 660871 Milliliter(s) PO 1 12/12/2010 11/20/2011 Inactive TAKE 1 TABLESPOON BY MOUTH O NCE DAILY Premarin 0.9 mg Tab RxNorm: 091173 1 Tablet(s) PO QD 10/12/201105/08 Inactive TAKE ONE TABLET BY MOUTH EVERY DAY fluoxetine 20 mg capsule RxNorm: 779603 1 Capsule(s) PO QD 10/12/2009/05/2012 Inactive TAKE ONE CAPSULE BY MOUTH EV JANKI DAY Synthroid 112 mcg Tab RxNorm: 518462 1 Tablet(s) PO QD 10/12/2011 Inactive TAKE ONE TABLET BY MOUTH EVERY DAY metformin ER 500 mg 24 hr Tab RxNorm: 811847 1 Tablet(s) PO QD 09/2311/10/2011 Inactive TAKE ONE TABLET BY MOUTH GLYNN RY DAY Synthroid 112 mcg Tab RxNorm: 576236 1 Tablet(s) PO QD 10/12/2011 Inactive TAKE ONE TABLET BY MOUTH EVERY DAY metformin ER 500 mg 24 hr Tab RxNorm: 910650 1 Tablet(s) PO QD 09/2310/11/2011 Inactive TAKE ONE TABLET BY MOUTH GLYNN RY DAY Prevacid 30 mg Cap RxNorm: 026284 Capsule(s) PO 10/12/2011 01/25/2012 Inactive TAKE ONE CAPSULE BY MOUTH EVERY DAY Symbicort 160 mcg-4.5 mcg/actuation HFA Aerosol Inhaler RxNo rm: 5408472 2 Puff(s) INH BID 10/12/2011 05/08/2012 Inactive INHALE 2 PUFFS O RALLY TWO TIMES A DAY gabapentin 800 mg Tab RxNorm: 816441 1 Tablet(s) PO QD 10/12/2011 Inactive TAKE ONE TABLET BY MOUTH EVERY DAY MS Contin 200 mg Tab RxNorm: 931712 1 Tablet(s) PO BID 09/23/201111/2010 Inactive Endocet 10 mg-325 mg Tab RxNorm: 6001934 1-2 Tablet(s) PO Q4H 09/2310/22/2011 Inactive PRN PAIN Endocet 10 mg-325 mg Tab RxNorm: 8918707 1-2 Tablet(s) PO Q4H 08/2109/19/2011 Inactive PRN PAIN MS Contin 200 mg Tab RxNorm: 327696 1 Tablet(s) PO BID 08/21/2011 Inactive Diflucan 100 mg Tab RxNorm: 899165 1 Tablet(s) PO QD 08/10/201108/16 Inactive cefdinir 300 mg Cap RxNorm: 886343 2 Capsule(s) PO QD 08/10/201107/24 Inactive Reglan 10 mg Tab RxNorm: 428078 1 Tablet(s) PO AC & HS 07/15/2011 Inactive Endocet 10 mg-325 mg Tab RxNorm: 8855506 1-2 Tablet(s) PO Q4H 07/1508/13/2011 Inactive PRN PAIN One Touch Ultra Test strips RxNorm: Miscellaneous BID 06/11/201101/16/2014 Inactive TEST TWO TIMES A DAY lactulose 10 gram/15 mL Oral Soln RxNorm: 295299 Milliliter(s) PO 0 06/10/2011 10/11/2011 Inactive TAKE 1 TABLESPOON BY MOUTH O NCE DAILY Chantix Continuing Month Aníbal 1 mg Tab RxNorm: 265176 Tablet(s) PO 0 06/10/2011 11/02/2011 Inactive TAKE DIRECTED - PER [employer] GE INSTRUCTIONS fluoxetine 40 mg Cap RxNorm: 411433 Capsule(s) PO 06/10/2011 02/02/20 Inactive TAKE ONE CAPSULE BY MOUTH EVERY MORNING Chantix Continuing Month Aníbal 1 mg Tab RxNorm: 022863 Ta blet(s) PO TAKE DIRECTED - PER PACKAGE INSTRUCTIONS 05/13/2011 06/09/2011 Inactive Soma 350 mg Tab RxNorm: 144065 Tablet(s) PO TAKE ON E TABLET BY MOUTH THREE TIMES A DAY 05/13/2011 04/18/2012 Inactive Chantix Continuing Month Aníbal 1 mg Tab RxNorm: 997827 Ta blet(s) PO as directed per package instructions. 04/22/2011 05/12/2011 Inactive Symbicort 160 mcg-4.5 mcg/Actuation HFA Aerosol Inhaler RxNo rm: 2060244 HFA Aerosol Inhaler INH INHALE 2 PUFFS ORALLY TWO TIMES A DAY 04/13/2011 Inactive Synthroid 112 mcg Tab RxNorm: 631259 Tablet(s) PO TAKE ONE TABLET BY MOUTH EVERY DAY 04/13/2011 10/12/2011 Inactive Premarin 0.9 mg Tab RxNorm: 519435 Tablet(s) PO TAKE ON E TABLET BY MOUTH EVERY DAY 04/13/2011 10/12/2011 Inactive gabapentin 800 mg Tab RxNorm: 369808 Tablet(s) PO TAKE ONE TABLET BY MOUTH EVERY DAY 04/13/2011 10/12/2011 Inactive Prevacid 30 mg Cap RxNorm: 240588 1 Capsule(s) PO QD 04/13/201110/11 Inactive Spiriva with HandiHaler 18 mcg & inhalation Caps RxNorm: 580 261 Capsule(s) INH INHALE CONTENTS OF 1 CAPSULE(S) WITH HANDIHALER ONCE DAILY 04/13/2011 12/21/2011 Inactive metformin ER 500 mg 24 hr Tab RxNorm: 258468 Tablet(s) PO TAKE ONE TABLET BY MOUTH EVERY DAY 04/13/2011 10/12/2011 Inactive Soma 350 mg Tab RxNorm: 148618 1 Tablet(s) PO QID 03/30/2011 02/13/20 19 Inactive fluoxetine 20 mg Cap RxNorm: 460870 Capsule(s) PO TAKE ONE CAPSULE BY MOUTH EVERY DAY 03/25/2011 10/12/2011 Inactive cefdinir 300 mg Cap RxNorm: 682701 2 Capsule(s) PO QD 03/19/201105/2011 Inactive 16.2 mg-0.1037 mg-0.0194 mg Tab RxNorm: 2756692 2 Tablet(s) PO TID PRN for gas and cramping 03/16/2011 07/13/2011 Inactive Soma 350 mg Tab RxNorm: 930606 2 Tablet(s) PO TID 03/16/2011 03/29/20 11 Inactive Chantix Starting Month Aníbal 0.5 mg (11)-1 mg (3x14) Tab s in a Dose Pack RxNorm: 260789 Tablet(s) PO as directed 03/02/2011 No Stop Date Active diazepam 10 mg Tab RxNorm: 624267 1 Tablet(s) PO BID 02/10/201101/19 Inactive Zofran 4 mg tablet RxNorm: 957025 1 Tablet(s) PO Q4H prn nausea 02/16/2011 Inactive Diflucan 100 mg Tab RxNorm: 674948 1 Tablet(s) PO QD 01/18/201101/24 Inactive Premarin 0.625 mg/g Vaginal Cream RxNorm: 891705 VAG In sert 1gm vaginally at bedtime 3 times weekly 01/18/2011 02/12/2019 Inactive loratadine 10 mg Tab RxNorm: 2228732 1 Tablet(s) PO QD 12/17/201003/2012 Inactive Spiriva with HandiHaler 18 mcg & inhalation Caps RxNorm: 580 261 1 Capsule(s) INH QD 12/17/2010 04/12/2011 Inactive Diflucan 100 mg Tab RxNorm: 207596 1 Tablet(s) PO QD 12/17/201012/23 Inactive diazepam 10 mg Tab RxNorm: 421341 1 Tablet(s) PO BID and PRN 201002/12/2019 Inactive One Touch Ultra Test Strips RxNorm: InVt BID Zainab t blood sugar at least twice daily. 11/11/2010 06/11/2011 Inactive fluoxetine 40 mg Cap RxNorm: 380056 1 Capsule(s) PO QAM 11/11/2010 Inactive diazepam 10 mg Tab RxNorm: 568031 1 Tablet(s) PO BID and PRN 200911/12/2010 Inactive Bactrim DS 800 mg-160 mg Tab RxNorm: 656263 1 Tablet(s) PO BID 09/2210/15/2010 Inactive fluoxetine 20 mg Cap RxNorm: 017828 1 Capsule(s) PO QD 10/02/201008/2011 Inactive Bactrim DS 800 mg-160 mg Tab RxNorm: 830218 1 Tablet(s) PO BID 01/201010/03/2010 Inactive Zofran 4 mg Tab RxNorm: 603412 1 Tablet(s) PO Q4H prn nausea 200910/16/2010 Inactive 16.2 mg-0.1037 mg-0.0194 mg Tab RxNorm: 0547426 2 Tablet(s) PO TID PRN for gas and cramping 09/17/2010 10/21/2010 Inactive Gabapentin 800 mg Tab RxNorm: 072103 1 Tablet(s) PO QD 09/16/2010 Inactive ProAir HFA 90 mcg/Actuation Aerosol Inhaler RxNorm: 838296 2 Puff(s) INH Q4H prn shortness of breath 09/15/2010 12/13/2010 Inactive gabapentin 800 mg Tab RxNorm: 024284 1 Tablet(s) PO QD 09/15/2010 Inactive Prevacid 30 mg Cap RxNorm: 012505 1 Capsule(s) PO QD 09/15/201004/12 Inactive loratadine 10 mg Tab RxNorm: 5236815 1 Tablet(s) PO QD 09/15/2010 Inactive Premarin 0.9 mg Tab RxNorm: 873239 1 Tablet(s) PO QD 09/15/201004/12 Inactive Synthroid 112 mcg Tab RxNorm: 326226 1 Tablet(s) PO QD 09/15/2010 Inactive metformin ER 500 mg 24 hr Tab RxNorm: 585248 1 Tablet(s) PO QD 08/2304/12/2011 Inactive Symbicort 160 mcg-4.5 mcg/Actuation Inhalation HFA Aer osol Inhaler RxNorm: 9401892 2 Puff(s) INH BID 09/15/2010 04/12/2011 Inactive diazepam 10 mg Tab RxNorm: 501867 1 Tablet(s) PO BID and PRN 200910/13/2010 Inactive Phentermine 37.5 mg Cap RxNorm: 204237 1 Capsule(s) PO QD 09/02/2010 11/02/2011 Inactive ProAir HFA 90 mcg/Actuation Aerosol Inhaler RxNorm: 724407 2 Puff(s) INH Q4H prn shortness of breath 08/07/2010 No Stop Date Active Premarin 0.9 mg Tab RxNorm: 907817 1 Tablet(s) PO QD 08/07/201009/14 Inactive Loratadine 10 mg Tab RxNorm: 9304223 1 Tablet(s) PO QD 08/07/2010 Inactive Lactulose 10 gram/15 mL Oral Soln RxNorm: 043895 1 Unit Dose PO QD 08/07/2010 02/12/2019 Inactive Zofran 4 mg Tab RxNorm: 312408 1 Tablet(s) PO Q4H prn nausea 2009 No Stop Date Active Gabapentin 800 mg Tab RxNorm: 407161 1 Tablet(s) PO QD 08/07/2010 Inactive Synthroid 112 mcg Tab RxNorm: 574884 1 Tablet(s) PO QD 08/07/2010 Inactive Metformin ER 500 mg 24 hr Tab RxNorm: 398276 1 Tablet(s) PO QD 07/2309/14/2010 Inactive Vitamin D 1,000 unit Tab RxNorm: 639390 1 Tablet(s) PO TID 08/07/2002/12/2019 Inactive Symbicort 160 mcg-4.5 mcg/Actuation Inhalation HFA Aer osol Inhaler RxNorm: 8122042 2 Puff(s) INH BID 08/07/2010 09/14/2010 Inactive Prevacid 30 mg Cap RxNorm: 203834 1 Capsule(s) PO QD 08/07/201009/14 Inactive Metformin ER 500 mg 24 hr Tab RxNorm: 202272 1 Tablet(s) PO QD 06/2308/06/2010 Inactive Vitamin D 1,000 unit Tab RxNorm: 806229 1 Tablet(s) PO TID 07/14/2008/06/2010 Inactive Synthroid 112 mcg Tab RxNorm: 335174 1 Tablet(s) PO QD 07/14/2010 Inactive Lactulose 10 gram/15 mL Oral Soln RxNorm: 255115 1 Unit Dose PO QD 07/14/2010 08/06/2010 Inactive Levaquin 500 mg Tab RxNorm: 418515 1 Tablet(s) PO QD 07/14/201007/27 Inactive Premarin 0.9 mg Tab RxNorm: 483970 1 Tablet(s) PO QD 07/14/201008/06 Inactive ProAir HFA 90 mcg/Actuation Aerosol Inhaler RxNorm: 979863 2 Puff(s) INH Q4H prn shortness of breath 07/14/2010 No Stop Date Active Prevacid 30 mg Cap RxNorm: 266337 1 Capsule(s) PO QD 07/14/201008/06 Inactive Zofran 4 mg Tab RxNorm: 908291 1 Tablet(s) PO Q4H prn nausea 2009 No Stop Date Active Symbicort 160 mcg-4.5 mcg/Actuation Inhalation HFA Aer osol Inhaler RxNorm: 9407520 2 Puff(s) INH BID 07/14/2010 08/06/2010 Inactive Loratadine 10 mg Tab RxNorm: 7933199 1 Tablet(s) PO QD 07/14/2010 Inactive Gabapentin 800 mg Tab RxNorm: 569993 1 Tablet(s) PO QD 07/14/2010 Inactive Metformin ER 500 mg 24 hr Tab RxNorm: 248018 1 Tablet(s) PO 010 07/13/2010 Inactive Diazepam 10 mg Tab RxNorm: 666431 1 Tablet(s) PO BID and PRN 200909/06/2010 Inactive Premarin 0.9 mg Tab RxNorm: 856224 1 Tablet(s) PO QD 06/09/201007/13 Inactive Zofran 4 mg Tab RxNorm: 398969 1 Tablet(s) PO Q4H prn nausea 2009 No Stop Date Active ProAir HFA 90 mcg/Actuation Aerosol Inhaler RxNorm: 359073 2 Puff(s) INH Q4H prn shortness of breath 06/09/2010 No Stop Date Active Gabapentin 800 mg Tab RxNorm: 026327 1 Tablet(s) PO QD 06/09/2010 Inactive Loratadine 10 mg Tab RxNorm: 1856688 1 Tablet(s) PO QD 06/09/2010 Inactive Lactulose 10 gram/15 mL Oral Soln RxNorm: 793895 1 Unit Dose PO QD 06/09/2010 07/13/2010 Inactive Prevacid 30 mg Cap RxNorm: 018794 1 Capsule(s) PO QD 06/09/201007/13 Inactive Synthroid 112 mcg Tab RxNorm: 989362 1 Tablet(s) PO QD 06/09/2010 Inactive Symbicort 160 mcg-4.5 mcg/Actuation Inhalation HFA Aer osol Inhaler RxNorm: 0575016 2 Puff(s) INH BID 06/09/2010 07/13/2010 Inactive Omnicef 300 mg Cap RxNorm: 017379 2 Capsule(s) PO QD 05/07/201005/20 Inactive Metformin 500 mg Tab RxNorm: 202221 1 Tablet(s) PO QD 05/06/201005/22 Inactive ProAir HFA 90 mcg/Actuation Aerosol Inhaler RxNorm: 954475 2 Puff(s) INH Q4H prn shortness of breath 05/06/2010 No Stop Date Active lactulose 10 gram/15 mL Oral Soln RxNorm: 286086 1 Unit Dose PO QD 05/06/2010 06/10/2011 Inactive Loratadine 10 mg Tab RxNorm: 2036639 1 Tablet(s) PO QD 05/06/2010 Inactive Synthroid 112 mcg Tab RxNorm: 652852 1 Tablet(s) PO QD 05/06/2010 Inactive Symbicort 160 mcg-4.5 mcg/Actuation Inhalation HFA Aer osol Inhaler RxNorm: 7498935 2 Puff(s) INH BID 05/06/2010 06/08/2010 Inactive Gabapentin 800 mg Tab RxNorm: 626889 1 Tablet(s) PO QD 05/06/2010 Inactive 16.2 mg-0.1037 mg-0.0194 mg Tab RxNorm: 2302571 2 Tablet(s) PO TID PRN for gas and cramping 05/06/2010 05/12/2010 Inactive Zofran 4 mg Tab RxNorm: 557833 1 Tablet(s) PO Q4H prn nausea 200904/13/2010 Inactive MS Contin 60 mg Tab RxNorm: 219782 3 Tablet(s) PO BID 04/09/201004/22 Inactive Soma 350 mg Tab RxNorm: 769713 2 Tablet(s) PO TID 04/09/2010 05/08/20 10 Inactive Symbicort 160 mcg-4.5 mcg/Actuation Inhalation HFA Aer osol Inhaler RxNorm: 4651285 2 Puff(s) INH BID 04/08/2010 05/05/2010 Inactive Doxycycline 100 mg Cap RxNorm: 5175414 1 Capsule(s) PO BID 04/08/20 10 04/17/2010 Inactive Triamterene-Hydrochlorothiazide 37.5 mg-25 mg Cap RxNorm: 19 8316 1 Capsule(s) PO QAM 04/08/2010 09/04/2010 Inactive fluoxetine 40 mg Cap RxNorm: 341604 1 Capsule(s) PO QAM 04/08/2010 Inactive Morphine SR 120 mg multiphase 24 hr Cap RxNorm: 608756 1 Capsul e(s) PO 03/11/2010 04/07/2010 Inactive Endocet 10 mg-325 mg Tab RxNorm: 0319521 1-2 Tablet(s) PO Q4H OR N PAIN 03/11/2010 04/09/2010 Inactive Savella 100 mg Tab RxNorm: 234110 1 Tablet(s) PO BID 03/10/201004/09 Inactive Soma 350 mg Tab RxNorm: 969310 1 Tablet(s) PO TID prn spasm 010 04/09/2010 Inactive Savella 100 mg Tab RxNorm: 892718 1 Tablet(s) PO BID 02/03/201004/09 Inactive Aspirin 81 mg Tab RxNorm: 105355 1 Tablet(s) PO QD No Start Date Active Zyrtec 10 mg Tab RxNorm: 2643175 1 Tablet(s) PO QD No Start Date Active One Touch Ultra Test Strips RxNorm: Misc test at least t wice daily. No Start Date Active coenzyme Q10 200 mg capsule RxNorm: 564505 1 Capsule(s) PO QD No Star t Date Active One Touch Ultra Test Strips RxNorm: InVt BID Zainab t blood sugar at least twice daily. No Start Date 11/10/2010 Inactive Gabapentin 800 mg Tab RxNorm: 334622 1 Tablet(s) PO QD No Start Date 05/05/2010 Inactive Abilify 5 mg tablet RxNorm: 781503 1 Tablet(s) PO QD No Start Date Inactive Chantix 1 mg Tab RxNorm: 706970 1 Tablet(s) PO BID No Start Date 10/22 Inactive Ozempic 0.25 mg or 0.5 mg (2 mg/1.5 mL) subcutaneous p en injector RxNorm: 9139111 .25 Milligram(s) SQ QW No Start Date 07/04/2019 Inactive lancets 28 gauge RxNorm: Miscellaneous As needed for blo od glucose sticks No Start Date 08/23/2013 Inactive potassium chloride ER 20 mEq tablet,extended release RxNorm: 739617 2 Tablet(s) PO QD No Start Date 09/26/2018 Inactive Ventolin HFA 90 mcg/actuation Aerosol Inhaler RxNorm: 275777 2 Puff(s) INH Q4H prn No Start Date 01/17/2012 Inactive potassium chloride ER 20 mEq tablet,extended release RxNorm: 121034 2 Tablet(s) PO QD No Start Date 10/19/2018 Inactive Januvia 100 mg tablet RxNorm: 890061 1 Tablet(s) PO QD No Start Date 09/10/2015 Inactive Medrol (Aníbal) 4 mg Tabs in a Dose Pack RxNorm: 847417 Tablet(s) PO N o Start Date 08/09/2011 Inactive as directed Zithromax Z-Aníbal 250 mg Tab RxNorm: 317080 Tablet(s) PO No Start Date 01/25/2012 Inactive as directed vitamin B6-vitamin E-magnesium tablet RxNorm: 1 Tablet(s ) PO QHS with INH No Start Date 03/30/2018 Inactive prednisone 20 mg Tab RxNorm: 402574 1 Tablet(s) PO TID for 1wk then 1 po BID for 1wk No Start Date 01/25/2012 Inactive furosemide 40 mg tablet RxNorm: 335409 1 Tablet(s) PO QAM No Start Date 10/09/2018 Inactive Vitamin D3 1000 units Capsule RxNorm: 1 Capsule(s) PO TID No S tart Date 03/19/2015 Inactive Zofran 4 mg Tab RxNorm: 982797 1 Tablet(s) PO Q4H prn nausea No Sta rt Date 04/13/2010 Inactive Premarin 0.625 mg/g Vaginal Cream RxNorm: 743595 1 Gram (s) VAG QHS 3 times a week No Start Date 09/22/2017 Inactive oxycodone 10 mg tablet RxNorm: 0496302 1-2 Tablet(s) PO QID as n eeded for pain No Start Date 11/04/2015 Inactive Nicoderm CQ 21 mg/24 hr daily Patch RxNorm: 042265 1 Applicatio n TD QD No Start Date 08/05/2015 Inactive Topamax 50 mg tablet RxNorm: 903623 1/2 Tablet(s) PO QH S for 1wk then 1 po q HS for 1wk then 2 po q HS No Start Date 06/27/2012 Inactive Chantix Starting Month Aníbal 0.5 mg (11)-1 mg (3x14) Tab s in a Dose Pack RxNorm: 316923 Tablet(s) PO as directed No Start Date 03/01/2011 Inactive Trulicity 0.75 mg/0.5 mL subcutaneous pen injector RxNorm: 1 159279 Milliliter(s) SQ No Start Date 07/04/2019 Inactive Medrol (Aníbal) 4 mg Tabs in a Dose Pack RxNorm: 575799 Tablet(s) PO N o Start Date 01/25/2012 Inactive as directed Duragesic 100 mcg/hr Transderm Patch RxNorm: 113214 2 A pplication TD Q48H for pain No Start Date 09/05/2013 Inactive Premarin 0.9 mg Tab RxNorm: 292704 1 Tablet(s) PO QD No Start Date Inactive Zithromax Z-Aníbal 250 mg Tab RxNorm: 680198 Tablet(s) PO as direc chinmay No Start Date 01/25/2012 Inactive ondansetron 8 mg disintegrating tablet RxNorm: 358619 1 Tablet(s) PO Q6H as needed No Start Date 10/10/2018 Inactive oxycodone 15 mg tablet RxNorm: 4874966 1 Tablet(s) PO QID as nee ded for pain No Start Date 03/05/2019 Inactive ProAir HFA 90 mcg/Actuation Aerosol Inhaler RxNorm: 415564 2 Puff(s) INH Q4H prn for wheezing or shortness of breath No Start Date 12/21/2011 Inactive pravastatin 40 mg tablet RxNorm: 131668 1/2 Tablet(s) PO QOD No Sta rt Date 04/09/2015 Inactive ipratropium-albuterol 0.5 mg-3 mg(2.5 mg base)/3 mL ne bulization soln RxNorm: 5231241 1 Unit Dose INH Q4H as needed No Start Date 09/09/2016 Inactive furosemide 40 mg tablet RxNorm: 912447 1 Tablet(s) PO QAM as ne eded No Start Date 09/24/2019 Inactive Vitamin D2 oral RxNorm: 4018 oral No Start Date 03/18/2015 Inacti ve pravastatin 40 mg tablet RxNorm: 996649 1/2 Tablet(s) PO QD No Star t Date 04/09/2015 Inactive ondansetron HCl 4 mg tablet RxNorm: 325948 1 Tablet(s) PO Q4H as needed for nausea and vomiting No Start Date 04/07/2016 Inactive furosemide 40 mg tablet RxNorm: 095898 2 Tablet(s) PO QAM No Start Date 09/26/2018 Inactive gabapentin 800 mg tablet RxNorm: 742991 1/2 Tablet(s) PO BID No Sta rt Date 06/21/2017 Inactive gabapentin 800 mg tablet RxNorm: 584320 1/2 Tablet(s) PO BID No Sta rt Date 07/05/2017 Inactive ProAir HFA 90 mcg/Actuation Aerosol Inhaler RxNorm: 814660 2 Puff(s) INH Q4H prn shortness of breath No Start Date 05/05/2010 Inactive scopolamine 1 mg over 3 days transdermal patch RxNorm: 50160 2 1 Application TD behind ear. Take off after three days No Start Date 10/10/2018 Inactive Metformin 500 mg Tab RxNorm: 261578 1 Tablet(s) PO QD No Start Date 0 05/05/2010 Inactive MS Contin 200 mg Tab RxNorm: 137768 1 Tablet(s) PO BID No Start Date 08/20/2011 Inactive Belladonna-Phenobarbital 48 mg tablet,extended release RxNor m: 2 Tablet(s) PO TID No Start Date 06/04/2016 Inactive Synthroid 112 mcg Tab RxNorm: 546523 1 Tablet(s) PO QD No Start Date 05/05/2010 Inactive Zegerid 40 mg-1.1 gram Cap RxNorm: 204709 1 Capsule(s) PO QD No Sta rt Date 01/25/2012 Inactive Premarin 0.625 mg/g Vaginal Cream RxNorm: 598461 VAG In sert 1gm vaginally at bedtime 3 times weekly No Start Date 01/17/2011 Inactive potassium chloride ER 20 mEq tablet,extended release RxNorm: 719058 1 Tablet(s) PO QD No Start Date 04/24/2019 Inactive methocarbamol 750 mg tablet RxNorm: 922382 2 Tablet(s) PO TID as needed for muscle spasm No Start Date 07/08/2014 Inactive Biaxin XL Aníbal 500 mg 24 hr Tab RxNorm: 931168 Tablet(s) PO as d irected No Start Date 04/24/2013 Inactive Vitamin D3 1,000 unit tablet RxNorm: 676048 3 Tablet(s) PO QD No St art Date 06/01/2017 Inactive Morphine SR 120 mg multiphase 24 hr Cap RxNorm: 685472 1 Capsul e(s) PO BID No Start Date 04/09/2010 Inactive Silvadene 1 % topical cream RxNorm: 171072 1 Application TOP BI D to burn area No Start Date 01/31/2017 Inactive Prednisone 20 mg Tab RxNorm: 570601 1 Tablet(s) PO TID for 3days then BID for 4days No Start Date 01/25/2012 Inactive gabapentin 600 mg tablet RxNorm: 461419 1 Tablet(s) PO BID No Start Date 01/21/2015 Inactive topiramate 50 mg tablet RxNorm: 616610 1 Tablet(s) PO QHS No Start Date 03/30/2018 Inactive Januvia 100 mg tablet RxNorm: 634978 1/2 Tablet(s) PO QD No Start D ate 12/25/2015 Inactive Diazepam 10 mg Tab RxNorm: 235615 1 Tablet(s) PO BID and PRN No Sta rt Date 06/08/2010 Inactive Medication Administered No Medication Administered data Immunizations Vaccine Codes Date Status Influenza CVX: 141 09/28/2012 Pneumovax Unknown 09/28/2012 Influenza (Adult) CVX: 141 09/02/2010 Results No Results data Procedures Procedure Codes Date THER/PROPH/DIAG INJ SC/IM CPT-4: 00529 07/10/2019 METHYLPREDNISOLONE INJECTION CPT-4: J2930 07/10/2019 URINALYSIS NONAUTO W/O SCOPE CPT-4: 86409 09/06/2018 URINE CULTURE/ COLONY COUNT CPT-4: 64989 09/06/2018 DRAIN/INJECT JOINT/BURSA CPT-4: 41753 04/29/2017 TRIAMCINOLONE ACET INJ NOS CPT-4: J3301 04/29/2017 DEXAMETHASONE SODIUM PHOS CPT-4: J1100 04/29/2017 INFLUENZA ASSAY W/OPTIC CPT-4: 67829 12/01/2016 RESPIRATORY CULTURE & STAIN CPT-4: 39275 07/09/2016 TB INTRADERMAL TEST CPT-4: 59682 04/21/2016 DRAIN/INJECT JOINT/BURSA CPT-4: 73748 11/07/2013 METHYLPREDNISOLONE 40 MG INJ CPT-4: J1030 11/07/2013 TRIAMCINOLONE ACET INJ NOS CPT-4: J3301 11/07/2013 DRAIN/INJECT JOINT/BURSA CPT-4: 61124 08/08/2013 METHYLPREDNISOLONE 40 MG INJ CPT-4: J1030 08/08/2013 TRIAMCINOLONE ACET INJ NOS CPT-4: J3301 08/08/2013 FLU VACCINE 3 YRS & > IM UP 64 CPT-4: 35392 2 PNEUMOCOCCAL VACC 23 ADITYA IM CPT-4: 70251 09/28/2012 IMMUNIZATION ADMIN CPT-4: 70811 09/28/2012 IMMUNIZATION ADMIN EACH ADD CPT-4: 98295 09/28/2012 FLU VACCINE 3 YRS & > IM UP 64 CPT-4: 51466 0 IMMUNIZATION ADMIN CPT-4: 23950 09/02/2010 METHYLPREDNISOLONE INJECTION CPT-4: J2930 05/07/2010 THER/PROPH/DIAG INJ SC/IM CPT-4: 85849 05/07/2010 Vital Signs Date Vital 11/29/2019 Blood [...] 1: 122/78 Code: 8480-6 BMI: 29.5 Code: 25720-7 Heart Rate 1: 76 bpm Height: 5'4" Respiratory Rate: 20 bpm SpO2: 96% Tempera ture: 37.0 (C) / 98.6 (F) Weight: 172 lbs 01/25/2019 Blood Pressure 1: 132/80 Code: 8480-6 BMI: 29.7 Code: 19544-3 Heart Rate 1: 84 bpm Height: 5'4" Respiratory Rate: 22 bpm SpO2: 98% Tempera ture: 36.9 (C) / 98.4 (F) Weight: 173 lbs 01/03/2019 Blood Pressure 1: 116/70 Code: 8480-6 BMI: 29.5 Code: 24374-8 Heart Rate 1: 92 bpm Height: 5'4" Respiratory Rate: 24 bpm SpO2: 98% Tempera ture: 37.2 (C) / 98.9 (F) Weight: 172 lbs 11/21/2018 Blood Pressure 1: 146/82 Code: 8480-6 BMI: 28.2 Code: 55545-6 Heart Rate 1: 88 bpm Height: 5'4" Respiratory Rate: 22 bpm SpO2: 97% Tempera ture: 36.9 (C) / 98.4 (F) Weight: 164 lbs 10/27/2018 Blood Pressure 1: 122/70 Code: 8480-6 BMI: 27.6 Code: 17423-8 Heart Rate 1: 88 bpm Height: 5'4" Respiratory Rate: 20 bpm SpO2: 96% Tempera ture: 36.8 (C) / 98.3 (F) Weight: 161 lbs 10/18/2018 Blood Pressure 1: 126/70 Code: 8480-6 BMI: 28.3 Code: 06671-4 Heart Rate 1: 76 bpm Height: 5'4" Respiratory Rate: 20 bpm SpO2: 95% Tempera ture: 37.0 (C) / 98.6 (F) Weight: 165 lbs 09/27/2018 Blood Pressure 1: 124/78 Code: 8480-6 BMI: 27.1 Code: 22793-8 Heart Rate 1: 88 bpm Height: 5'4" Respiratory Rate: 20 bpm SpO2: 98% Tempera ture: 36.4 (C) / 97.6 (F) Weight: 158 lbs 09/14/2018 Blood Pressure 1: 140/72 Code: 8480-6 BMI: 26.1 Code: 39176-4 Heart Rate 1: 100 bpm Height: 5'4" Respiratory Rate: 20 bpm SpO2: 97% Tempera ture: 36.9 (C) / 98.4 (F) Weight: 152 lbs 09/06/2018 Blood Pressure 1: 156/82 Code: 8480-6 BMI: 26.3 Code: 51813-1 Heart Rate 1: 100 bpm Height: 5'4" Respiratory Rate: 28 bpm SpO2: 95% Tempera ture: 37.2 (C) / 98.9 (F) Weight: 153 lbs 08/16/2018 Blood Pressure 1: 130/78 Code: 8480-6 Heart Rate 1: 87 bpm Respiratory Rate: 24 bpm SpO2: 94% Temperature: 36.9 (C) / 98.4 (F) We ight: 147 lbs 8 oz 07/07/2018 Blood Pressure 1: 116/78 Code: 8480-6 BMI: 22.7 Code: 72961-9 Heart Rate 1: 88 bpm Height: 5'4" Respiratory Rate: 22 bpm SpO2: 98% Tempera ture: 36.5 (C) / 97.7 (F) Weight: 132 lbs 05/31/2018 Blood Pressure 1: 128/78 Code: 8480-6 BMI: 22.3 Code: 73245-3 Heart Rate 1: 92 bpm Height: 5'4" Respiratory Rate: 26 bpm SpO2: 94% Tempera ture: 36.7 (C) / 98.1 (F) Weight: 130 lbs 03/31/2018 Blood Pressure 1: 136/78 Code: 8480-6 BMI: 21.5 Code: 12292-8 Heart Rate 1: 76 bpm Height: 5'4" Respiratory Rate: 24 bpm SpO2: 95% Tempera ture: 36.8 (C) / 98.3 (F) Weight: 125 lbs 01/26/2018 Blood Pressure 1: 142/64 Code: 8480-6 BMI: 20.6 Code: 55530-9 Heart Rate 1: 90 bpm Height: 5'4" Respiratory Rate: 24 bpm SpO2: 92% Tempera ture: 36.3 (C) / 97.3 (F) Weight: 120 lbs 10/26/2017 Blood Pressure 1: 124/70 Code: 8480-6 BMI: 20.3 Code: 11558-5 Heart Rate 1: 76 bpm Height: 5'4" Respiratory Rate: 22 bpm SpO2: 94% Tempera ture: 36.7 (C) / 98.1 (F) Weight: 118 lbs 09/23/2017 Blood Pressure 1: 106/70 Code: 8480-6 BMI: 19.2 Code: 83938-4 Heart Rate 1: 76 bpm Height: 5'4" Respiratory Rate: 20 bpm SpO2: 94% Tempera ture: 36.8 (C) / 98.3 (F) Weight: 112 lbs 08/12/2017 Blood Pressure 1: 116/68 Code: 8480-6 BMI: 20.1 Code: 32998-8 Heart Rate 1: 80 bpm Height: 5'4" Respiratory Rate: 22 bpm SpO2: 95% Tempera ture: 36.8 (C) / 98.2 (F) Weight: 117 lbs 07/06/2017 Blood Pressure 1: 136/78 Code: 8480-6 BMI: 20.6 Code: 10495-1 Heart Rate 1: 76 bpm Height: 5'4" Respiratory Rate: 24 bpm SpO2: 96% Tempera ture: 36.8 (C) / 98.2 (F) Weight: 120 lbs 06/02/2017 Blood Pressure 1: 112/70 Code: 8480-6 Heart Rate 1: 92 bpm Height: 5'4" Respiratory Rate: 24 bpm SpO2: 95% Temperature: 37.0 (C) / 98.6 (F) Weight: 04/29/2017 Blood Pressure 1: 94/52 Code: 8480-6 BMI: 19.6 C ode: 52692-2 Heart Rate 1: 84 bpm Height: 5'4" [...] 92/58 Code: 8480-6 BMI: 19.2 C ode: 61726-7 Heart Rate 1: 84 bpm Height: 5'4" Respiratory Rate: 26 bpm SpO2: 95% Tempera ture: 36.7 (C) / 98.0 (F) Weight: 112 lbs 12/01/2016 Blood Pressure 1: 114/70 Code: 8480-6 BMI: 19.2 Code: 35824-3 Heart Rate 1: 96 bpm Height: 5'4" Respiratory Rate: 28 bpm SpO2: 93% Tempera ture: 38.3 (C) / 101.0 (F) Weight: 112 lbs 10/27/2016 Blood Pressure 1: 126/66 Code: 8480-6 BMI: 19.6 Code: 24673-9 Heart Rate 1: 92 bpm Height: 5'4" Respiratory Rate: 28 bpm SpO2: 90% Tempera ture: 36.8 (C) / 98.3 (F) Weight: 114 lbs 09/09/2016 Blood Pressure 1: 126/74 Code: 8480-6 Heart Rate 1: 104 bpm Height: 5'4" Respiratory Rate: 32 bpm SpO2: 88% Temperature: 37 .2 (C) / 99.0 (F) 08/26/2016 Blood Pressure 1: 134/82 Code: 8480-6 BMI: 22.0 Code: 56388-1 Heart Rate 1: 84 bpm Height: 5'4" Respiratory Rate: 24 bpm SpO2: 94% Tempera ture: 36.8 (C) / 98.3 (F) Weight: 128 lbs 05/21/2016 Blood Pressure 1: 142/80 Code: 8480-6 BMI: 21.6 Code: 64485-7 Heart Rate 1: 104 bpm Height: 5'4" Respiratory Rate: 22 bpm SpO2: 93% Tempera ture: 36.0 (C) / 96.8 (F) Weight: 126 lbs 03/25/2016 Blood Pressure 1: 126/62 Code: 8480-6 Heart Rate 1: 88 bpm Respiratory Rate: 20 bpm SpO2: 92% Temperature: 36.8 (C) / 98.3 (F) We ight: 130 lbs 01/23/2016 Blood Pressure 1: 146/82 Code: 8480-6 BMI: 24.1 Code: 58610-1 Heart Rate 1: 92 bpm Height: 5'3" Respiratory Rate: 22 bpm Temperature: 37 .1 (C) / 98.8 (F) Weight: 136 lbs 12/26/2015 Blood Pressure 1: 142/78 Code: 8480-6 BMI: 24.6 Code: 18808-7 Heart Rate 1: 78 bpm Height: 5'3" Respiratory Rate: 20 bpm Temperature: 36 .7 (C) / 98.1 (F) Weight: 139 lbs 12/03/2015 Blood Pressure 1: 126/60 Code: 8480-6 BMI: 24.6 Code: 28403-3 Heart Rate 1: 100 bpm Height: 5'3" Respiratory Rate: 28 bpm Temperature: 37 .6 (C) / 99.6 (F) Weight: 139 lbs 09/10/2015 Blood Pressure 1: 124/64 Code: 8480-6 BMI: 23.7 Code: 79266-1 Heart Rate 1: 88 bpm Height: 5'3" Respiratory Rate: 24 bpm SpO2: 95% Tempera ture: 36.4 (C) / 97.6 (F) Weight: 134 lbs 08/06/2015 Blood Pressure 1: 114/76 Code: 8480-6 BMI: 23.2 Code: 03609-2 Heart Rate 1: 88 bpm Height: 5'3" Respiratory Rate: 22 bpm Temperature: 36 .6 (C) / 97.9 (F) Weight: 131 lbs 07/18/2015 Blood Pressure 1: 144/78 Code: 8480-6 BMI: 23.7 Code: 61467-4 Heart Rate 1: 84 bpm Height: 5'3" Respiratory Rate: 20 bpm Temperature: 37 .2 (C) / 99.0 (F) Weight: 134 lbs 04/10/2015 Blood Pressure 1: 110/64 Code: 8480-6 Heart Rate 1: 80 bpm Height: Respiratory Rate: 20 bpm Temperature: 37.1 (C) / 98.8 (F) Weight: 03/05/2015 Blood Pressure 1: 136/80 Code: 8480-6 BMI: 23.9 Code: 06743-4 Heart Rate 1: 76 bpm Height: 5'3" Respiratory Rate: 24 bpm Temperature: 37 .0 (C) / 98.6 (F) Weight: 135 lbs 01/30/2015 Blood Pressure 1: 142/80 Code: 8480-6 BMI: 23.0 Code: 08334-6 Heart Rate 1: 96 bpm Height: 5'3" Respiratory Rate: 22 bpm Temperature: 36 .2 (C) / 97.2 (F) Weight: 130 lbs 01/02/2015 Blood Pressure 1: 124/70 Code: 8480-6 BMI: 23.4 Code: 49301-7 Heart Rate 1: 84 bpm Height: 5'3" Respiratory Rate: 24 bpm SpO2: 95% Tempera ture: 36.9 (C) / 98.5 (F) Weight: 132 lbs 10/03/2014 Blood Pressure 1: 106/68 Code: 8480-6 BMI: 22.5 Code: 82433-8 Heart Rate 1: 88 bpm Height: 5'3" Respiratory Rate: 24 bpm Temperature: 37 .0 (C) / 98.6 (F) Weight: 127 lbs 08/27/2014 Blood Pressure 1: 124/68 Code: 8480-6 BMI: 21.1 Code: 35235-1 Heart Rate 1: 88 bpm Height: 5'3" [...] 1: 120/70 Code: 8480-6 BMI: 19.2 Code: 86743-0 Heart Rate 1: 70 bpm Height: 5'4" Respiratory Rate: 20 bpm Temperature: 36 .9 (C) / 98.4 (F) Weight: 112 lbs 06/28/2013 Blood Pressure 1: 102/68 Code: 8480-6 BMI: 19.6 Code: 32797-7 Heart Rate 1: 76 bpm Height: 5'4" Respiratory Rate: 20 bpm Temperature: 36 .8 (C) / 98.2 (F) Weight: 114 lbs 05/31/2013 Blood Pressure 1: 106/70 Code: 8480-6 BMI: 18.9 Code: 61407-2 Heart Rate 1: 100 bpm Height: 5'4" Respiratory Rate: 20 bpm Temperature: 36 .4 (C) / 97.6 (F) Weight: 110 lbs 05/03/2013 Blood Pressure 1: 126/70 Code: 8480-6 BMI: 19.1 Code: 01397-2 Heart Rate 1: 88 bpm Height: 5'4" Respiratory Rate: 20 bpm Temperature: 37 .1 (C) / 98.8 (F) Weight: 111 lbs 04/25/2013 Blood Pressure 1: 114/68 Code: 8480-6 BMI: 19.4 Code: 98424-6 Heart Rate 1: 92 bpm Height: 5'4" Respiratory Rate: 24 bpm SpO2: 96% Tempera ture: 37.7 (C) / 99.8 (F) Weight: 113 lbs 03/08/2013 Blood Pressure 1: 94/68 Code: 8480-6 BMI: 21.3 C ode: 46411-0 Heart Rate 1: 88 bpm Height: 5'4" Respiratory Rate: 24 bpm Temperature: 37 .0 (C) / 98.6 (F) Weight: 124 lbs 02/07/2013 Blood Pressure 1: 106/64 Code: 8480-6 BMI: 21.8 Code: 38057-9 Heart Rate 1: 84 bpm Height: 5'4" Respiratory Rate: 22 bpm Temperature: 36 .8 (C) / 98.2 (F) Weight: 127 lbs 01/10/2013 Blood Pressure 1: 122/68 Code: 8480-6 BMI: 21.6 Code: 88869-4 Heart Rate 1: 94 bpm Height: 5'4" SpO2: 94% Temperature: 36.7 (C) / 98.1 (F) Weight: 126 lbs 09/28/2012 Blood Pressure 1: 124/78 Code: 8480-6 BMI: 24.9 Code: 47710-1 Heart Rate 1: 92 bpm Height: 5'4" Respiratory Rate: 20 bpm Temperature: 36 .7 (C) / 98.1 (F) Weight: 145 lbs 06/28/2012 Blood Pressure 1: 134/80 Code: 8480-6 BMI: 24.9 Code: 10117-4 Heart Rate 1: 76 bpm Height: 5'4" Respiratory Rate: 20 bpm Temperature: 36 .8 (C) / 98.2 (F) Weight: 145 lbs 05/03/2012 Blood Pressure 1: 108/62 Code: 8480-6 BMI: 25.6 Code: 47676-2 Heart Rate 1: 88 bpm Height: 5'4" Temperature: 36.2 (C) / 97.2 (F) Weight: 149 lbs 03/01/2012 Blood Pressure 1: 124/66 Code: 8480-6 BMI: 25.1 Code: 82917-9 Heart Rate 1: 76 bpm Height: 5'4" Respiratory Rate: 20 bpm Temperature: 36 .6 (C) / 97.9 (F) Weight: 146 lbs 01/26/2012 Blood Pressure 1: 118/82 Code: 8480-6 BMI: 25.1 Code: 72401-8 Heart Rate 1: 74 bpm Height: 5'4" Temperature: 36.8 (C) / 98.2 (F) Weight: 146 lbs 11/03/2011 Blood Pressure 1: 126/80 Code: 8480-6 BMI: 27.3 Code: 14784-5 Heart Rate 1: 72 bpm Height: 5'4" [...] For Visit Effective Dates Notes follow up 11/29/2019 Discuss pneumonia [facility] [...] prozac Encounters Encounter Performer Location Codes Date (80818) OFFICE/OUTPATIENT VISIT EST Diagnosis: Chronic pain syndrome[ICD10: G89.4] Diagnosis: Localized edema[ICD10: R60.0] Diagnosis: Chronic obstructive pulmonary disease, unspecified[ICD10: J44.9] Diagnosis: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
--- OUTSIDE RECORDS SUMMARY | 2020-04-24 22:56 | XMS REPORT | CCD ---
Author Author Yana Renteria D.O. Organization [facility] Address [address] [place] [address] Phone Care Team Providers Care Business Banking Sales Assistant Name Role Phone Vika Renteria D.O., PP Unavailable CCM Unavailable Summary Purpose Interface Exchange Insurance Providers Payer name Policy type / Coverage type Covered green party ID Effective Begin Date Effective End Date [employer] [facility] Medicaid [id number] 2018 U nknown Family History Family History data not found Social History Social History Element Codes Description Effective Dates Marital status Unknown 06/28/[address]: 05154471 Currently smokes tobacco 05/2013 Allergies, Adverse Reactions, [...] MS Contin 200 mg tablet,extended release RxNorm: 163598 1 Tablet(s) Oral two times a day 02/01/2020 03/01/2020 Active cyclobenzaprine 10 mg tablet RxNorm: 794506 TAKE ONE TA BLET BY MOUTH THREE TIMES A DAY NEEDED 01/31/2020 No Stop Date Active Premarin 0.45 mg tablet RxNorm: 789012 TAKE ONE TABLET BY MOUTH DAILY 01/31/2020 No Stop Date Active metformin 500 mg tablet RxNorm: 239186 1 Tablet(s) Oral QD 01/31/20 20 04/29/2020 Active gabapentin 300 mg capsule RxNorm: 253746 TAKE ONE CAPSULE BY [facility] TWICE A DAY 01/16/2020 No Stop Date Active potassium chloride ER 20 mEq tablet,extended release RxNorm: 206676 TAKE ONE TABLET BY MOUTH DAILY 01/08/2020 07/05/2020 Active ProAir HFA 90 mcg/actuation aerosol inhaler RxNorm: 851334 INHALE ONE PUFF BY MOUTH EVERY 4 HOURS FOR WHEEZING OR FOR SHORTNESS OF BREATH 01/04/2020 No Stop Date Active metformin 500 mg tablet RxNorm: 356682 1 Tablet(s) Oral QD 01/04/20 20 01/30/2020 Inactive MS Contin 200 mg tablet,extended release RxNorm: 993629 1 Tablet(s) Oral two times a day 01/02/2020 01/31/2020 Inactive Pulmicort 1 mg/2 mL suspension for nebulization RxNorm: 6168 19 USE ONE VIAL VIA NEBULIZER BY MOUTH TWICE A DAY 12/21/2019 No Stop Date Active furosemide 40 mg tablet RxNorm: 030845 TAKE ONE TABLET BY MOUTH EVERY MORNING NEEDED 12/20/2019 No Stop Date Active levothyroxine 25 mcg tablet RxNorm: 621812 TAKE ONE TAB LET BY MOUTH EVERY MORNING 12/20/2019 No Stop Date Active MS Contin 200 mg tablet,extended release RxNorm: 497674 1 Tablet(s) Oral two times a day 12/05/2019 01/01/2020 Inactive Medrol (Aníbal) 4 mg tablets in a dose pack RxNorm: 232802 6 Tablet(s) Oral QD --then as directed 11/30/2019 12/05/2019 Inactive MS Contin 200 mg tablet,extended release RxNorm: 923498 1 Tablet(s) Oral two times a day 11/29/2019 12/04/2019 Inactive cyclobenzaprine 10 mg tablet RxNorm: 626085 TAKE ONE TA BLET BY MOUTH THREE TIMES A DAY NEEDED 11/21/2019 01/30/2020 Inactive MS Contin 200 mg tablet,extended release RxNorm: 079247 1 Tablet(s) Oral two times a day replaces 100mg dose 11/03/2019 11/02/2019 Inactive MS Contin 200 mg tablet,extended release RxNorm: 813122 1 Tablet(s) Oral two times a day replaces 100mg dose 11/03/2019 11/29/2019 Inactive ferrous sulfate 325 mg (65 mg iron) tablet RxNorm: 590298 1 Tab let(s) Oral QD 10/30/2019 No Stop Date Active MS Contin 100 mg tablet,extended release RxNorm: 585107 1 Table t(s) Oral QD 10/30/2019 10/29/2019 Inactive MS Contin 100 mg tablet,extended release RxNorm: 904649 1 Table t(s) Oral QD 10/30/2019 11/02/2019 Inactive Relistor 150 mg tablet RxNorm: 7571461 TAKE THREE TABLETS BY [facility] DAILY 10/25/2019 No Stop Date Active pantoprazole 40 mg tablet,delayed release RxNorm: 142039 1 Tabl et(s) Oral QD 10/25/2019 No Stop Date Active Minipress 2 mg capsule RxNorm: 341775 1 Capsule(s) Oral QAM and 3 at bedtime 10/25/2019 No Stop Date Active Lancets, Super Thin RxNorm: 1 Unit Dose Miscellaneous QD 9 11/27/2020 Active Cymbalta 60 mg capsule,delayed release RxNorm: 339747 1 Capsule (s) Oral QAM 10/25/2019 No Stop Date Active Cymbalta 30 mg capsule,delayed release RxNorm: 230681 1 Capsule (s) Oral QAM 10/25/2019 No Stop Date Active oxycodone 15 mg tablet RxNorm: 2806532 1 Tablet(s) Oral four times a day as needed for pain 10/25/2019 11/28/2019 Inactive metformin 500 mg tablet RxNorm: 662425 1 Tablet(s) Oral QD 10/25/20 19 01/03/2020 Inactive levothyroxine 25 mcg tablet RxNorm: 492388 1 Tablet(s) Oral QAM 02/201912/19/2019 Inactive levothyroxine 25 mcg tablet RxNorm: 254065 1 Tablet(s) Oral QAM 02/201910/24/2019 Inactive MS Contin 100 mg tablet,extended release RxNorm: 530747 1 Tablet(s) Oral two times a day replaces fentanyl 10/25/2019 10/25/2019 Inactive Premarin 0.45 mg tablet RxNorm: 465764 TAKE ONE TABLET BY MOUTH DAILY 10/24/2019 01/30/2020 Inactive Duragesic 100 mcg/hr transdermal patch RxNorm: 720724 2 Application TD Q48H for pain 10/18/2019 10/24/2019 Inactive gabapentin 300 mg capsule RxNorm: 146619 TAKE ONE CAPSULE BY [email or web address]] TWICE A DAY 10/16/2019 01/15/2020 Inactive cyclobenzaprine 10 mg tablet RxNorm: 609118 TAKE ONE TA BLET BY MOUTH THREE TIMES A DAY NEEDED 09/27/2019 11/20/2019 Inactive Relistor 150 mg tablet RxNorm: 4771248 TAKE THREE TABLETS BY [facility] DAILY 09/25/2019 10/24/2019 Inactive ProAir HFA 90 mcg/actuation aerosol inhaler RxNorm: 428021 INHALE ONE PUFF BY MOUTH EVERY 4 HOURS FOR WHEEZING OR FOR SHORTNESS OF BREATH 09/25/2019 01/03/2020 Inactive furosemide 40 mg tablet RxNorm: 145564 1 Tablet(s) Oral QAM as needed 09/25/2019 09/25/2019 Inactive oxycodone 15 mg tablet RxNorm: 6911102 1 Tablet(s) PO QID as nee ded for pain 09/21/2019 10/24/2019 Inactive Duragesic 100 mcg/hr transdermal patch RxNorm: 345557 2 Application TD Q48H for pain 09/19/2019 10/17/2019 Inactive Daliresp 500 mcg tablet RxNorm: 0970438 1 Tablet(s) Oral QD 019 03/08/2020 Active Relistor 150 mg tablet RxNorm: 1115866 TAKE THREE TABLETS BY [facility] DAILY 07/25/2019 07/30/2019 Inactive cyclobenzaprine 10 mg tablet RxNorm: 043010 TAKE ONE TA BLET BY MOUTH THREE TIMES A DAY NEEDED 07/25/2019 09/22/2019 Inactive potassium chloride ER 20 mEq tablet,extended release RxNorm: 594504 TAKE ONE TABLET BY MOUTH DAILY 07/25/2019 01/07/2020 Inactive fluoxetine 40 mg capsule RxNorm: 453831 TAKE ONE CAPSULE BY [facility] EVERY MORNING 07/11/2019 10/24/2019 Inactive Medrol (Aníbal) 4 mg tablets in a dose pack RxNorm: 001951 6 Tablet(s) PO QD --then as directed 07/10/2019 07/15/2019 Inactive omeprazole 40 mg capsule,delayed release RxNorm: 722689 1 Capsule(s) PO QD for stomach TAKE ONE CAPSULE BY MOUTH DAILY 07/10/2019 10/24/2019 Inactive Augmentin 875 mg-125 mg tablet RxNorm: 260898 1 Tablet(s) PO BID 07/16/2019 Inactive Trulicity 0.75 mg/0.5 mL subcutaneous pen injector RxNorm: 1 746868 0.75 Milliliter(s) SQ weekly 07/05/2019 10/24/2019 Inactive Compazine 10 mg tablet RxNorm: 692724 TAKE ONE TABLET B Y MOUTH FOUR TIMES A DAY NEEDED FOR NAUSEA 06/20/2019 07/19/2019 Inactive ProAir HFA 90 mcg/actuation aerosol inhaler RxNorm: 071151 INHALE ONE PUFF BY MOUTH EVERY 4 HOURS FOR WHEEZING OR FOR SHORTNESS OF BREATH 06/20/2019 06/23/2019 Inactive Daliresp 500 mcg tablet RxNorm: 0400775 TAKE ONE TABLET BY MOUTH DAILY 06/12/2019 09/10/2019 Inactive odclfjjv-islwjagmc-dvghyxyvw 3.5 mg/mL-10,000 unit/mL- 1 % ear solution RxNorm: 613069 4 Drop(s) otic (ear) TID to left ear 06/05/2019 10/24/2019 Inac tive furosemide 40 mg tablet RxNorm: 458569 TAKE ONE TABLET BY MOUTH EVERY MORNING 05/26/2019 07/09/2019 Inactive Duragesic 100 mcg/hr transdermal patch RxNorm: 739434 2 Application TD Q48H for pain 05/16/2019 06/14/2019 Inactive oxycodone 15 mg tablet RxNorm: 7530171 1 Tablet(s) PO QID as nee ded for pain 05/10/2019 09/20/2019 Inactive doxycycline hyclate 100 mg capsule RxNorm: 2617176 1 Capsule(s) PO BID 05/03/2019 05/12/2019 Inactive prednisone 20 mg tablet RxNorm: 116181 1 Tablet(s) PO T ID for 3 days then 1 po BID for 3 days then one daily for 3 days 05/03/2019 07/11/2019 Inactiv e Ozempic 0.25 mg or 0.5 mg (2 mg/1.5 mL) subcutaneous p en injector RxNorm: 3663425 0.5 Milligram(s) SQ QW 05/03/2019 07/09/2019 Inactive fluconazole 100 mg tablet RxNorm: 075675 1 Tablet(s) PO QD 05/03/2005/07/2019 Inactive Premarin 0.45 mg tablet RxNorm: 586843 TAKE ONE TABLET BY MOUTH DAILY 05/03/2019 10/23/2019 Inactive potassium chloride ER 20 mEq tablet,extended release RxNorm: 221236 1 Tablet(s) PO QD 04/27/2019 07/25/2019 Inactive potassium chloride ER 20 mEq tablet,extended release RxNorm: 200733 1 Tablet(s) PO QD 04/25/2019 04/26/2019 Inactive Compazine 10 mg tablet RxNorm: 324155 1 Tablet(s) PO QID as nee ded for nausea 04/25/2019 05/04/2019 Inactive ProAir HFA 90 mcg/actuation aerosol inhaler RxNorm: 788862 INHALE ONE PUFF BY MOUTH EVERY 4 HOURS FOR WHEEZING OR FOR SHORTNESS OF BREATH 04/12/2019 06/10/2019 Inactive Medrol (Aníbal) 4 mg tablets in a dose pack RxNorm: 543958 6 Tablet(s) PO QD --then as directed 04/11/2019 04/16/2019 Inactive Symbicort 160 mcg-4.5 mcg/actuation HFA aerosol inhaler RxNo rm: 9494558 2 Puff(s) INH BID 04/10/2019 10/06/2019 Inactive levothyroxine 50 mcg tablet RxNorm: 646839 1 Tablet(s) PO QD 201810/24/2019 Inactive gabapentin 300 mg capsule RxNorm: 469667 1 Capsule(s) PO BID 201810/02/2019 Inactive Symbicort 160 mcg-4.5 mcg/actuation HFA aerosol inhaler RxNo rm: 1535881 2 Puff(s) INH BID 04/06/2019 04/09/2019 Inactive oxycodone 15 mg tablet RxNorm: 2540440 1 Tablet(s) PO QID as nee ded for pain 04/05/2019 05/09/2019 Inactive levothyroxine 50 mcg tablet RxNorm: 655712 1 Tablet(s) PO QD 201804/09/2019 Inactive furosemide 40 mg tablet RxNorm: 658438 TAKE ONE TABLET BY MOUTH EVERY MORNING 03/21/2019 04/19/2019 Inactive levothyroxine 50 mcg tablet RxNorm: 307131 TAKE ONE TABLET BY M OUTH DAILY 03/21/2019 03/27/2019 Inactive Duragesic 100 mcg/hr transdermal patch RxNorm: 904324 2 Application TD Q48H for pain 03/13/2019 04/11/2019 Inactive oxycodone 15 mg tablet RxNorm: 3956909 1 Tablet(s) PO QID as nee ded for pain 03/06/2019 04/04/2019 Inactive Relistor 150 mg tablet RxNorm: 3530726 3 Tablet(s) PO QD 02/28/2019 0 05/28/2019 Inactive cyclobenzaprine 10 mg tablet RxNorm: 041569 1 Tablet(s) PO TID as needed 02/28/2019 05/28/2019 Inactive phentermine 37.5 mg tablet RxNorm: 947276 1 Tablet(s) PO QAM 201803/15/2019 Inactive Duragesic 100 mcg/hr transdermal patch RxNorm: 750236 2 Application TD Q48H for pain 02/09/2019 03/10/2019 Inactive Daliresp 500 mcg tablet RxNorm: 9828720 TAKE ONE TABLET BY MOUTH DAILY 01/31/2019 05/30/2019 Inactive Premarin 0.45 mg tablet RxNorm: 588282 1 Tablet(s) PO QD 01/31/2019 0 04/30/2019 Inactive fluoxetine 40 mg capsule RxNorm: 379314 Capsule(s) TAKE ONE CAPSULE BY MOUTH EVERY MORNING 01/31/2019 04/30/2019 Inactive levothyroxine 50 mcg tablet RxNorm: 115030 1 Tablet(s) PO QD 201804/10/2019 Inactive follow up in 3 weeks levothyroxine 50 mcg tablet RxNorm: 659588 1 Tablet(s) PO QD 201801/25/2019 Inactive follow up in 3 weeks potassium chloride ER 20 mEq tablet,extended release RxNorm: 506732 2 Tablet(s) PO BID 01/23/2019 01/08/2020 Inactive Synthroid 50 mcg tablet RxNorm: 057059 TAKE ONE TABLET BY MOUTH DAILY 01/16/2019 10/24/2019 Inactive potassium chloride ER 20 mEq tablet,extended release RxNorm: 119470 2 Tablet(s) PO BID 01/04/2019 01/22/2019 Inactive ProAir HFA 90 mcg/actuation aerosol inhaler RxNorm: 043587 INHALE ONE PUFF BY MOUTH EVERY 4 HOURS FOR WHEEZING OR SHORTNESS OF BREATH 01/04/201902/20 Inactive Request already responded to by other me ans (e.g. phone or fax) ProAir HFA 90 mcg/actuation aerosol inhaler RxNorm: 5002410 INHALE ONE PUFF BY MOUTH EVERY 4 HOURS FOR WHEEZING OR SHORTNESS OF BREATH 01/02/201912/23 Inactive gabapentin 300 mg capsule RxNorm: 512947 TAKE ONE CAPSULE BY [facility] TWICE A DAY 12/30/2018 04/06/2019 Inactive furosemide 40 mg tablet RxNorm: 162041 1 Tablet(s) PO QAM 12/26/2018 02/23/2019 Inactive Compazine 10 mg tablet RxNorm: 475575 1 Tablet(s) PO QID as nee ded for nausea 12/07/2018 12/16/2018 Inactive metolazone 2.5 mg tablet RxNorm: 077394 TAKE ONE TABLET BY MOUT H EVERY MORNING 12/05/2018 01/03/2019 Inactive metformin ER 500 mg tablet,extended release 24 hr RxNorm: 86 0975 TAKE ONE TABLET BY MOUTH DAILY 12/05/2018 01/31/2020 Inactive Synthroid 50 mcg tablet RxNorm: 401604 1 Tablet(s) PO QD 11/25/2018 0 01/03/2019 Inactive DC any other synthroid strengths. Should be 50mcg only cyclobenzaprine 10 mg tablet RxNorm: 440409 TAKE ONE TA BLET BY MOUTH THREE TIMES A DAY NEEDED 11/09/2018 02/06/2019 Inactive metolazone 2.5 mg tablet RxNorm: 187835 1 Tablet(s) PO QAM repl aces 5mg dose 11/02/2018 12/01/2018 Inactive potassium chloride ER 20 mEq tablet,extended release RxNorm: 972022 2 Tablet(s) PO QD 2018 01/02/2019 Inactive Compazine 10 mg tablet RxNorm: 267087 1 Tablet(s) PO QID as nee ded for nausea 10/18/2018 12/07/2018 Inactive furosemide 40 mg tablet RxNorm: 431778 1 Tablet(s) PO QAM 10/12/2018 12/10/2018 Inactive ondansetron 8 mg disintegrating tablet RxNorm: 684204 1 Tablet(s) PO Q6H as needed 10/11/2018 10/17/2018 Inactive scopolamine 1 mg over 3 days transdermal patch RxNorm: 26762 2 1 Application TD behind ear. Take off after three days 10/11/2018 01/02/2019 Inactive furosemide 40 mg tablet RxNorm: 554250 1 Tablet(s) PO QAM 10/10/2018 12/26/2018 Inactive metolazone 5 mg tablet RxNorm: 054613 1 Tablet(s) PO QAM 10/06/2018 1 01/03/2018 Inactive metolazone 5 mg tablet RxNorm: 189113 1 Tablet(s) PO QAM 10/06/2018 1 12/05/2017 Inactive Xtampza ER 36 mg capsule sprinkle RxNorm: 3311141 1 Capsule(s) P O BID 10/05/2018 01/02/2019 Inactive Xtampza ER 36 mg capsule sprinkle RxNorm: 7373484 1 Capsule(s) P O BID 10/05/2018 02/12/2019 Inactive omeprazole 40 mg capsule,delayed release RxNorm: 895995 TAKE ONE CAPSULE BY MOUTH DAILY 10/03/2018 12/31/2018 Inactive Duragesic 100 mcg/hr transdermal patch RxNorm: 505556 2 Application TD Q48H for pain 09/30/2018 10/29/2018 Inactive Synthroid 50 mcg tablet RxNorm: 034554 1 Tablet(s) PO QD 09/29/2018 0 11/25/2018 Inactive DC any other synthroid strengths. Should be 50mcg only Synthroid 50 mcg tablet RxNorm: 988184 1 Tablet(s) PO QD 09/29/2018 1 11/28/2017 Inactive furosemide 40 mg tablet RxNorm: 446107 2 Tablet(s) PO Q AM for 1 week then every other day for 2 weeks 09/27/2018 10/12/2018 Inactive fluoxetine 40 mg capsule RxNorm: 368972 2 Capsule(s) PO QD 09/27/20 18 10/17/2018 Inactive potassium chloride ER 20 mEq tablet,extended release RxNorm: 125183 2 Tablet(s) PO QD for 1 week then every other day for 2 weeks 09/27/2018 2018 Inactive ProAir HFA 90 mcg/actuation aerosol inhaler RxNorm: 7329991 INHALE ONE PUFF BY MOUTH EVERY 4 HOURS FOR WHEEZING OR SHORTNESS OF BREATH 09/26/201811/23 Inactive Synthroid 75 mcg tablet RxNorm: 428995 1 Tablet(s) PO QD 09/09/2018 1 Inactive Synthroid 75 mcg tablet RxNorm: 952354 1 Tablet(s) PO QD 09/09/2018 1 11/28/2017 Inactive furosemide 40 mg tablet RxNorm: 654912 1 Tablet(s) PO QD 09/06/2018 1 Inactive potassium chloride ER 20 mEq tablet,extended release RxNorm: 212222 1 Tablet(s) PO QD 09/06/2018 09/19/2018 Inactive Duragesic 100 mcg/hr transdermal patch RxNorm: 049377 2 Application TD Q48H for pain 08/30/2018 09/28/2018 Inactive gabapentin 300 mg capsule RxNorm: 381203 TAKE ONE CAPSULE BY [facility] [email or web address]] TWICE A DAY 08/23/2018 12/20/2018 Inactive Daliresp 500 mcg tablet RxNorm: 3504821 TAKE ONE TABLET BY MOUTH DAILY 08/23/2018 01/19/2019 Inactive Pulmicort 1 mg/2 mL suspension for nebulization RxNorm: 6168 19 USE ONE VIAL VIA NEBULIZER BY MOUTH TWICE A DAY 08/23/2018 07/11/2019 Inactive Synthroid 88 mcg tablet RxNorm: 188225 1 Tablet(s) PO QD 08/19/2018 1 Inactive Medrol (Aníbal) 4 mg tablets in a dose pack RxNorm: 704789 Tablet(s) PO take as directed 08/16/2018 09/05/2018 Inactive Relistor 150 mg tablet RxNorm: 8354263 3 Tablet(s) PO QD 08/16/2018 1 Inactive Zithromax Z-Aníbal 250 mg tablet RxNorm: 179069 Tablet(s) PO take as directed 08/16/2018 09/05/2018 Inactive cyclobenzaprine 10 mg tablet RxNorm: 662375 1 Tablet(s) PO TID as needed 08/16/2018 11/08/2018 Inactive Synthroid 88 mcg tablet RxNorm: 493211 1 Tablet(s) PO Q D NEEDS UPDATED LABS BEFORE FURTHER REFILLS 08/08/2018 08/19/2018 Inactive Premarin 0.45 mg tablet RxNorm: 755974 1 Tablet(s) PO QD 08/03/2018 0 01/31/2019 Inactive fluoxetine 20 mg capsule RxNorm: 154696 TAKE ONE CAPSULE BY [facility] DAILY 08/03/2018 09/26/2018 Inactive Xtampza ER 36 mg capsule sprinkle RxNorm: 2853732 1 Capsule(s) P O BID 08/03/2018 09/01/2018 Inactive metformin ER 500 mg tablet,extended release 24 hr RxNorm: 86 0975 1 Tablet(s) PO QD 08/03/2018 10/31/2018 Inactive Symbicort 160 mcg-4.5 mcg/actuation HFA aerosol inhaler RxNo rm: 7667068 2 Puff(s) INH BID 08/03/2018 01/29/2019 Inactive Duragesic 100 mcg/hr transdermal patch RxNorm: 209629 2 Application TD Q48H for pain 07/29/2018 08/27/2018 Inactive ProAir HFA 90 mcg/actuation aerosol inhaler RxNorm: 716628 INHALE TWO PUFFS BY MOUTH EVERY 4 HOURS FOR WHEEZING OR SHORTNESS OF BREATH 07/27/201802/2018 Inactive Relistor 150 mg tablet RxNorm: 0828772 3 Tablet(s) PO QD 07/20/2018 0 08/15/2018 Inactive metformin ER 500 mg tablet,extended release 24 hr RxNorm: 86 0975 TAKE ONE TABLET BY MOUTH DAILY 07/08/2018 08/02/2018 Inactive fluoxetine 40 mg capsule RxNorm: 158311 TAKE ONE CAPSULE BY [facility] EVERY MORNING 07/08/2018 10/05/2018 Inactive Xtampza ER 18 mg capsule sprinkle RxNorm: 3725219 1 Capsule(s) P O BID 07/08/2018 08/02/2018 Inactive Relistor 150 mg tablet RxNorm: 3519246 3 Tablet(s) PO QD 07/08/2018 0 07/12/2018 Inactive Synthroid 88 mcg tablet RxNorm: 552950 1 Tablet(s) PO Q D NEEDS UPDATED LABS BEFORE FURTHER REFILLS 06/23/2018 07/07/2018 Inactive fluoxetine 40 mg capsule RxNorm: 286326 TAKE ONE CAPSULE BY [facility] EVERY MORNING 06/15/2018 09/26/2018 Inactive orphenadrine citrate ER 100 mg tablet,extended release RxNor m: 533275 TAKE ONE TABLET BY MOUTH TWICE A DAY FOR MUSCLE SPASM 06/15/2018 08/15/2018 Covert ctive Duragesic 100 mcg/hr transdermal patch RxNorm: 584344 2 Application TD Q48H for pain 05/30/2018 06/28/2018 Inactive ProAir HFA 90 mcg/actuation aerosol inhaler RxNorm: 044751 INHALE TWO PUFFS BY MOUTH EVERY 4 HOURS FOR WHEEZING OR SHORTNESS OF BREATH 05/19/201803/2018 Inactive Chantix Continuing Month Box 1 mg tablet RxNorm: 764259 TAKE ONE TABLET BY MOUTH TWICE A DAY 05/19/2018 08/15/2018 Inactive oxycodone 10 mg tablet RxNorm: 8627070 1-2 Tablet(s) PO QID as n eeded for pain 05/19/2018 07/07/2018 Inactive gabapentin 300 mg capsule RxNorm: 694423 TAKE ONE CAPSULE BY [facility] TWICE A DAY 05/18/2018 07/16/2018 Inactive ProAir HFA 90 mcg/actuation aerosol inhaler RxNorm: 946068 INHALE TWO PUFFS BY MOUTH EVERY 4 HOURS FOR WHEEZING OR SHORTNESS OF BREATH 05/04/201804/23 Inactive Augmentin 500 mg-125 mg tablet RxNorm: 678564 1 Tablet(s) PO BID 05/03/2018 Inactive oxycodone 10 mg tablet RxNorm: 9192146 1-2 Tablet(s) PO QID as n eeded for pain 04/21/2018 05/18/2018 Inactive Synthroid 88 mcg tablet RxNorm: 648317 1 Tablet(s) PO QD 04/15/2018 0 08/08/2018 Inactive Symbicort 160 mcg-4.5 mcg/actuation HFA aerosol inhaler RxNo rm: 7070819 2 Puff(s) INH BID 04/15/2018 04/10/2019 Inactive Premarin 0.45 mg tablet RxNorm: 191888 1 Tablet(s) PO QD 04/15/2018 0 08/03/2018 Inactive ProAir HFA 90 mcg/actuation aerosol inhaler RxNorm: 268458 2 Puff(s) INH Q4H prn for wheezing or shortness of breath 04/15/2018 05/03/2018 Inactive metformin ER 500 mg tablet,extended release 24 hr RxNorm: 86 0975 1 Tablet(s) PO QD 04/11/2018 07/07/2018 Inactive omeprazole 40 mg capsule,delayed release RxNorm: 637552 TAKE ONE CAPSULE BY MOUTH DAILY 04/10/2018 06/08/2018 Inactive Synthroid 88 mcg tablet RxNorm: 479656 1 Tablet(s) PO QD 04/04/2018 0 04/14/2018 Inactive Synthroid 88 mcg tablet RxNorm: 322584 1 Tablet(s) PO QD 04/04/2018 0 04/03/2018 Inactive orphenadrine citrate ER 100 mg tablet,extended release RxNor m: 905292 1 Tablet(s) PO BID for muscle spasm 04/04/2018 05/03/2018 Inactive metformin ER 500 mg tablet,extended release 24 hr RxNorm: 86 0975 1 Tablet(s) PO QD NEEDS UPDATED LABS 03/31/2018 04/11/2018 Inactive doxycycline hyclate 100 mg capsule RxNorm: 5112245 1 Capsule(s) PO BID 03/31/2018 04/09/2018 Inactive prednisone 20 mg tablet RxNorm: 654102 3 Tablet(s) PO T ID for 3 days then 1 po BID for 3 days then one daily for 3 days 03/31/2018 07/06/2018 Inactiv e Chantix Continuing Month Box 1 mg tablet RxNorm: 109746 TAKE ONE TABLET BY MOUTH TWICE A DAY 03/25/2018 03/30/2018 Inactive oxycodone 10 mg tablet RxNorm: 7890658 1-2 Tablet(s) PO QID as n eeded for pain 03/21/2018 04/20/2018 Inactive Daliresp 500 mcg tablet RxNorm: 3006829 1 Tablet(s) PO QD 03/15/2018 08/22/2018 Inactive metformin ER 500 mg tablet,extended release 24 hr RxNorm: 86 0975 1 Tablet(s) PO QD NEEDS UPDATED LABS 03/14/2018 03/31/2018 Inactive nystatin 100,000 unit/mL oral suspension RxNorm: 945494 5 Chio liter(s) PO QID 03/02/2018 03/15/2018 Inactive nystatin 100,000 unit/mL oral suspension RxNorm: 372799 5 Chio liter(s) PO QID 03/02/2018 03/01/2018 Inactive oxycodone 10 mg tablet RxNorm: 4022290 1-2 Tablet(s) PO QID as n eeded for pain 02/16/2018 03/20/2018 Inactive fluoxetine 20 mg capsule RxNorm: 797894 1 Capsule(s) PO QD 02/15/20 18 08/02/2018 Inactive metformin ER 500 mg tablet,extended release 24 hr RxNorm: 86 0975 1 Tablet(s) PO QD Needs updated labs 02/14/2018 03/14/2018 Inactive cefdinir 300 mg capsule RxNorm: 956988 1 Capsule(s) PO BID 01/27/20 18 02/04/2018 Inactive orphenadrine citrate ER 100 mg tablet,extended release RxNor m: 974590 1 Tablet(s) PO BID for muscle spasm 01/26/2018 04/04/2018 Inactive gabapentin 300 mg capsule RxNorm: 042355 1 Capsule(s) PO BID 201704/17/2018 Inactive oxycodone 10 mg tablet RxNorm: 7996849 1-2 Tablet(s) PO QID as n eeded for pain 01/17/2018 02/15/2018 Inactive Duragesic 100 mcg/hr transdermal patch RxNorm: 184594 2 Application TD Q48H for pain 01/17/2018 02/15/2018 Inactive gabapentin 300 mg capsule RxNorm: 373936 TAKE ONE CAPSULE BY MO [facility] TWICE A DAY 12/20/2017 01/18/2018 Inactive fluoxetine 40 mg capsule RxNorm: 882159 TAKE ONE CAPSULE BY [facility] EVERY MORNING 12/15/2017 03/14/2018 Inactive OneTouch Ultra Test strips RxNorm: TEST DAILY 11/04/2017 02/01/2018 Inactive gabapentin 300 mg capsule RxNorm: 198007 1 Capsule(s) P O TID replaces BID dosing 10/26/2017 02/22/2018 Inactive oxycodone 10 mg tablet RxNorm: 1908073 1-2 Tablet(s) PO QID as n eeded for pain 10/18/2017 01/16/2018 Inactive Duragesic 100 mcg/hr transdermal patch RxNorm: 439797 2 Application TD Q48H for pain 10/18/2017 11/16/2017 Inactive gabapentin 300 mg capsule RxNorm: 096539 1 Capsule(s) PO BID 201610/25/2017 Inactive Abilify 5 mg tablet RxNorm: 318060 1 Tablet(s) PO QAM 09/23/201702/2017 Inactive gabapentin 300 mg capsule RxNorm: 836847 1 Capsule(s) PO BID 201610/17/2017 Inactive oxycodone 10 mg tablet RxNorm: 7262092 1-2 Tablet(s) PO QID as n eeded for pain 09/15/2017 10/17/2017 Inactive Duragesic 100 mcg/hr transdermal patch RxNorm: 793535 2 Application TD Q48H for pain 09/15/2017 10/14/2017 Inactive Duragesic 100 mcg/hr transdermal patch RxNorm: 792252 2 Application TD Q48H for pain 09/15/2017 10/24/2019 Inactive oxycodone 10 mg tablet RxNorm: 2796492 1-2 Tablet(s) PO QID as n eeded for pain 09/15/2017 08/15/2018 Inactive Daliresp 500 mcg tablet RxNorm: 9058204 1 Tablet(s) PO QD 09/06/2017 03/15/2018 Inactive Ventolin HFA 90 mcg/actuation aerosol inhaler RxNorm: 839439 2 Puff(s) INH Q4H as needed 09/02/2017 05/19/2018 Inactive oxycodone 10 mg tablet RxNorm: 5573617 1-2 Tablet(s) PO QID as n eeded for pain 08/17/2017 09/14/2017 Inactive Duragesic 100 mcg/hr transdermal patch RxNorm: 424446 2 Application TD Q48H for pain 08/17/2017 09/14/2017 Inactive fluoxetine 40 mg capsule RxNorm: 953371 Capsule(s) TAKE ONE CAPSULE BY MOUTH EVERY MORNING 08/17/2017 12/14/2017 Inactive Pulmicort 1 mg/2 mL suspension for nebulization RxNorm: 6168 19 1 Unit Dose INH BID Dx: COPD (J44.9) 08/16/2017 08/22/2018 Inactive gabapentin 300 mg capsule RxNorm: 460107 1 Capsule(s) PO QHS 201610/18/2017 Inactive fluoxetine 20 mg capsule RxNorm: 674489 1 Capsule(s) PO QD 08/12/20 17 02/14/2018 Inactive Abilify 2 mg tablet RxNorm: 076523 1 Tablet(s) PO QD TA KE ONE TABLET BY MOUTH DAILY 08/12/2017 10/25/2017 Inactive metformin ER 500 mg tablet,extended release 24 hr RxNorm: 86 0975 1 Tablet(s) PO QD 08/10/2017 02/14/2018 Inactive Synthroid 112 mcg tablet RxNorm: 574095 1 Tablet(s) PO QD 08/10/2017 04/15/2018 Inactive oxycodone 10 mg tablet RxNorm: 0906155 1-2 Tablet(s) PO QID as n eeded for pain 07/19/2017 08/16/2017 Inactive Duragesic 100 mcg/hr transdermal patch RxNorm: 921940 2 Application TD Q48H for pain 07/19/2017 08/16/2017 Inactive Ventolin HFA 90 mcg/actuation aerosol inhaler RxNorm: 206277 2 Puff(s) INH Q4H as needed 07/12/2017 09/02/2017 Inactive Abilify 2 mg tablet RxNorm: 701105 1 Tablet(s) PO QD TA KE ONE TABLET BY MOUTH DAILY 07/06/2017 08/11/2017 Inactive gabapentin 800 mg tablet RxNorm: 535756 1 Tablet(s) PO TID 06/22/2007/05/2017 Inactive Chantix Starting Month Box 0.5 mg (11)-1 mg (42) table ts in dose pack RxNorm: 286714 TAKE BY MOUTH INSTRUCTED - PER PACKAGE INSTRUCTIONS 06/0707/04/2017 Inactive Ventolin HFA 90 mcg/actuation aerosol inhaler RxNorm: 402573 2 Puff(s) INH Q4H as needed 05/26/2017 07/12/2017 Inactive Duragesic 100 mcg/hr transdermal patch RxNorm: 358564 2 Application TD Q48H for pain 05/19/2017 06/17/2017 Inactive oxycodone 10 mg tablet RxNorm: 8415847 1-2 Tablet(s) PO QID as n eeded for pain 05/19/2017 07/18/2017 Inactive Abilify 2 mg tablet RxNorm: 960322 TAKE ONE TABLET BY MOUTH DAILY 0 05/10/2017 07/05/2017 Inactive Synthroid 112 mcg tablet RxNorm: 288094 1 Tablet(s) PO QD 05/06/2017 08/10/2017 Inactive metformin ER 500 mg tablet,extended release 24 hr RxNorm: 86 0975 1 Tablet(s) PO QD 05/06/2017 08/10/2017 Inactive Topamax 100 mg tablet RxNorm: 724346 1 Tablet(s) PO QHS 05/06/2017 Inactive Premarin 0.45 mg tablet RxNorm: 815106 1 Tablet(s) PO QD 05/06/2017 0 04/15/2018 Inactive orphenadrine citrate ER 100 mg tablet,extended release RxNor m: 946536 1 Tablet(s) PO TID for muscle spasm--replaces methocarbamol 04/29/2017 Inactive oxycodone 10 mg tablet RxNorm: 6128435 1-2 Tablet(s) PO QID as n eeded for pain 04/21/2017 05/18/2017 Inactive Duragesic 100 mcg/hr transdermal patch RxNorm: 517785 2 Application TD Q48H for pain 04/21/2017 05/18/2017 Inactive fluoxetine 40 mg capsule RxNorm: 111212 Capsule(s) TAKE ONE CAPSULE BY MOUTH EVERY MORNING 04/20/2017 08/17/2017 Inactive Ventolin HFA 90 mcg/actuation aerosol inhaler RxNorm: 726394 2 Puff(s) INH Q4H as needed 04/05/2017 05/26/2017 Inactive Symbicort 160 mcg-4.5 mcg/actuation HFA aerosol inhaler RxNo rm: 3974501 2 Puff(s) INH BID 03/30/2017 04/15/2018 Inactive Spiriva with HandiHaler 18 mcg and inhalation capsules RxNor m: 973385 1 Capsule(s) INH QD USING HANDIHALER 03/30/2017 02/12/2019 Inactive Duragesic 100 mcg/hr transdermal patch RxNorm: 468507 2 Application TD Q48H for pain 03/18/2017 04/16/2017 Inactive oxycodone 10 mg tablet RxNorm: 9432120 1-2 Tablet(s) PO QID as n eeded for pain 03/18/2017 04/20/2017 Inactive metformin ER 500 mg tablet,extended release 24 hr RxNorm: 86 0975 Tablet(s) TAKE ONE TABLET BY MOUTH DAILY 03/01/2017 05/06/2017 Inactive Premarin 0.45 mg tablet RxNorm: 590123 Tablet(s) TAKE ONE TABLE T BY MOUTH DAILY 03/01/2017 05/06/2017 Inactive Synthroid 112 mcg tablet RxNorm: 619314 Tablet(s) TAKE ONE TABLET BY MOUTH DAILY 03/01/2017 05/06/2017 Inactive Daliresp 500 mcg tablet RxNorm: 8412276 1 Tablet(s) PO QD 03/01/2017 09/06/2017 Inactive 16.2 mg-0.1037 mg-0.0194 mg tablet RxNorm: 5088162 Tablet(s) PO PRN for gas and cramping 02/23/2017 04/28/2017 Inactive TAKE TWO TABLET S BY MOUTH THREE TIMES A DAY NEEDED FOR GAS AND CRAMPING gabapentin 800 mg tablet RxNorm: 363529 1 Tablet(s) PO TID repl aces 600mg 02/23/2017 04/28/2017 Inactive Duragesic 100 mcg/hr transdermal patch RxNorm: 379211 2 Application TD Q48H for pain 02/17/2017 03/17/2017 Inactive fluoxetine 20 mg capsule RxNorm: 863302 1 Capsule(s) PO QD 02/18/20 17 08/12/2017 Inactive oxycodone 20 mg tablet RxNorm: 2126329 1 Tablet(s) PO QID as nee ded for pain 02/17/2017 03/17/2017 Inactive Ventolin HFA 90 mcg/actuation aerosol inhaler RxNorm: 292817 INHALE TWO PUFFS BY MOUTH EVERY 4 HOURS NEEDED 02/15/2017 04/05/2017 Inactive Silvadene 1 % topical cream RxNorm: 558936 1 Application TOP BI D to burn area 02/01/2017 09/22/2017 Inactive Topamax 100 mg tablet RxNorm: 798501 TAKE ONE TABLET BY MOUTH EVERY NIGHT AT BEDTIME 01/29/2017 05/06/2017 Inactive Chantix Starting Month Box 0.5 mg (11)-1 mg (42) table ts in dose pack RxNorm: 879292 Tablet(s) PO as directed 01/29/2017 06/01/2017 Inactive Abilify 2 mg tablet RxNorm: 575066 TAKE ONE TABLET BY MOUTH DAILY 0 01/26/2017 04/25/2017 Inactive Chantix Starting Month Box 0.5 mg (11)-1 mg (42) table ts in dose pack RxNorm: 854141 Tablet(s) PO as directed 01/20/2017 01/28/2017 Inactive gabapentin 600 mg tablet RxNorm: 981436 1 Tablet(s) PO TID 01/21/2002/22/2017 Inactive Chantix Continuing Month Box 1 mg tablet RxNorm: 517547 1 Table t(s) PO BID 12/31/2016 06/01/2017 Inactive Spiriva with HandiHaler 18 mcg and inhalation capsules RxNor m: 683255 INHALE THE ENTIRE CONTENTS OF 1 CAPSULE ONCE A DAY USING HANDIHALER 12/31/201607/2017 Inactive Synthroid 112 mcg tablet RxNorm: 635214 TAKE ONE TABLET BY MOUT H DAILY 12/30/2016 03/01/2017 Inactive metformin ER 500 mg tablet,extended release 24 hr RxNorm: 86 0975 TAKE ONE TABLET BY MOUTH DAILY 12/30/2016 03/01/2017 Inactive Premarin 0.45 mg tablet RxNorm: 189233 TAKE ONE TABLET BY MOUTH DAILY 12/30/2016 03/01/2017 Inactive omeprazole 40 mg capsule,delayed release RxNorm: 073093 TAKE ONE CAPSULE BY MOUTH DAILY 12/30/2016 01/25/2018 Inactive Ventolin HFA 90 mcg/actuation aerosol inhaler RxNorm: 364817 INHALE TWO PUFFS BY MOUTH EVERY 4 HOURS NEEDED 12/28/2016 02/13/2017 Inactive fluoxetine 40 mg capsule RxNorm: 749781 TAKE ONE CAPSULE BY BENOIT TH EVERY MORNING 12/15/2016 04/20/2017 Inactive Chantix Continuing Month Box 1 mg tablet RxNorm: 798540 TAKE ONE TABLET BY MOUTH TWICE A DAY 12/04/2016 12/31/2016 Inactive doxycycline hyclate 100 mg capsule RxNorm: 6912212 1 Capsule(s) PO BID 12/01/2016 12/07/2016 Inactive Levaquin 750 mg tablet RxNorm: 673483 1 Tablet(s) PO QD 12/01/2016 Inactive Abilify 2 mg tablet RxNorm: 587829 TAKE ONE TABLET BY MOUTH DAILY 0 11/25/2016 11/30/2016 Inactive Ventolin HFA 90 mcg/actuation aerosol inhaler RxNorm: 170098 INHALE TWO PUFFS BY MOUTH EVERY 4 HOURS NEEDED 11/02/2016 12/19/2016 Inactive Chantix Continuing Month Box 1 mg tablet RxNorm: 038809 Tablet(s) PO as directed 10/30/2016 12/03/2016 Inactive Symbicort 160 mcg-4.5 mcg/actuation HFA aerosol inhaler RxNo rm: 9386226 INHALE TWO PUFFS TWO TIMES A DAY 10/30/2016 03/30/2017 Inactive Abilify 2 mg tablet RxNorm: 449497 1 Tablet(s) PO QD 10/27/201611/24 Inactive amoxicillin 500 mg capsule RxNorm: 631752 1 Capsule(s) PO TID 10/1410/23/2016 Inactive amoxicillin 500 mg capsule RxNorm: 795874 1 Capsule(s) PO TID 10/1410/13/2016 Inactive Synthroid 112 mcg tablet RxNorm: 870288 TAKE ONE TABLET BY MOUT H DAILY 09/28/2016 12/29/2016 Inactive Topamax 100 mg tablet RxNorm: 857889 TAKE ONE TABLET BY MOUTH EVERY NIGHT AT BEDTIME 09/28/2016 01/28/2017 Inactive Premarin 0.45 mg tablet RxNorm: 904732 TAKE ONE TABLET BY MOUTH DAILY 09/28/2016 12/29/2016 Inactive metformin ER 500 mg tablet,extended release 24 hr RxNorm: 86 0975 TAKE ONE TABLET BY MOUTH DAILY 09/28/2016 12/29/2016 Inactive Ventolin HFA 90 mcg/actuation aerosol inhaler RxNorm: 700019 INHALE TWO PUFFS BY MOUTH EVERY 4 HOURS NEEDED 09/22/2016 10/23/2016 Inactive Pulmicort 1 mg/2 mL suspension for nebulization RxNorm: 6168 19 1 Unit Dose INH BID Dx: COPD (J44.9) 09/10/2016 08/16/2017 Inactive Pulmicort 1 mg/2 mL suspension for nebulization RxNorm: 6168 19 1 Unit Dose INH BID 09/10/2016 09/09/2016 Inactive Brovana 15 mcg/2 mL solution for nebulization RxNorm: 730092 1 Unit Dose INH BID Dx: COPD (J44.9) 09/10/2016 01/25/2018 Inactive Brovana 15 mcg/2 mL solution for nebulization RxNorm: 204119 1 Unit Dose INH BID 09/10/2016 09/09/2016 Inactive ipratropium-albuterol 0.5 mg-3 mg(2.5 mg base)/3 mL ne bulization soln RxNorm: 4344276 1 Unit Dose INH Q4H as needed Dx: COPD (J44.9) 09/10/2016 0 02/12/2019 Inactive orphenadrine citrate ER 100 mg tablet,extended release RxNor m: 911390 1 Tablet(s) PO BID for muscle spasm--replaces methocarbamol 09/09/2016 Inactive Chantix Continuing Month Box 1 mg tablet RxNorm: 824565 Tablet(s) PO as directed 09/09/2016 10/30/2016 Inactive orphenadrine citrate ER 100 mg tablet,extended release RxNor m: 180823 1 Tablet(s) PO BID for muscle spasm 09/09/2016 09/08/2016 Inactive Spiriva with HandiHaler 18 mcg and inhalation capsules RxNor m: 303375 INHALE THE ENTIRE CONTENTS OF 1 CAPSULE ONCE A DAY USING HANDIHALER 09/01/201605/2017 Inactive Daliresp 500 mcg tablet RxNorm: 6476062 1 Tablet(s) PO QD 08/27/2016 03/01/2017 Inactive prednisone 20 mg tablet RxNorm: 184642 3 Tablet(s) PO T ID for 3 days then 1 po BID for 3 days then one daily for 3 days 08/26/2016 04/28/2017 Inactiv e Wellbutrin XL 300 mg 24 hr tablet, extended release RxNorm: 673474 TAKE ONE TABLET BY MOUTH EVERY MORNING 07/29/2016 10/26/2016 Inactive gabapentin 600 mg tablet RxNorm: 858213 1 Tablet(s) PO BID 06/26/20 16 12/22/2016 Inactive fluoxetine 40 mg capsule RxNorm: 410278 TAKE ONE CAPSULE BY BENOIT TH EVERY MORNING 06/24/2016 11/20/2016 Inactive Duragesic 100 mcg/hr transdermal patch RxNorm: 479006 2 Application TD Q48H for pain 06/05/2016 07/04/2016 Inactive oxycodone 10 mg tablet RxNorm: 2183942 1-2 Tablet(s) PO QID as n eeded for pain 06/05/2016 03/17/2017 Inactive Belladonna-Phenobarbital 48 mg tablet,extended release RxNor m: 2 Tablet(s) PO TID 06/05/2016 01/19/2017 Inactive Premarin 0.45 mg tablet RxNorm: 718748 TAKE ONE TABLET BY MOUTH DAILY 05/27/2016 09/23/2016 Inactive Topamax 100 mg tablet RxNorm: 483735 TAKE ONE TABLET BY MOUTH EVERY NIGHT AT BEDTIME 05/27/2016 09/27/2016 Inactive Synthroid 112 mcg tablet RxNorm: 178690 TAKE ONE TABLET BY MOUT H DAILY 05/27/2016 09/23/2016 Inactive metformin ER 500 mg tablet,extended release 24 hr RxNorm: 86 0975 TAKE ONE TABLET BY MOUTH DAILY 05/27/2016 09/23/2016 Inactive Symbicort 160 mcg-4.5 mcg/actuation HFA aerosol inhaler RxNo rm: 0021863 INHALE TWO PUFFS TWO TIMES A DAY 05/27/2016 10/23/2016 Inactive Ventolin HFA 90 mcg/actuation aerosol inhaler RxNorm: 161424 INHALE TWO PUFFS BY MOUTH EVERY 4 HOURS NEEDED 05/21/2016 07/07/2016 Inactive omeprazole 40 mg capsule,delayed release RxNorm: 331939 1 Capsu le(s) PO QD 05/06/2016 08/03/2016 Inactive metformin ER 500 mg tablet,extended release 24 hr RxNorm: 86 0975 TAKE ONE TABLET BY MOUTH DAILY 04/23/2016 05/22/2016 Inactive methocarbamol 750 mg tablet RxNorm: 405704 2 Tablet(s) PO TID as needed for muscle spasm 04/23/2016 09/08/2016 Inactive Synthroid 112 mcg tablet RxNorm: 245193 TAKE ONE TABLET BY MOUT H DAILY 04/23/2016 05/22/2016 Inactive Spiriva with HandiHaler 18 mcg and inhalation capsules RxNor m: 134920 INHALE THE ENTIRE CONTENTS OF 1 CAPSULE ONCE A DAY USING HANDIHALER 04/09/201608/2016 Inactive Diflucan 100 mg tablet RxNorm: 995407 1 Tablet(s) PO QD 04/08/2016 Inactive doxycycline hyclate 100 mg capsule RxNorm: 8393693 1 Capsule(s) PO BID 04/08/2016 04/17/2016 Inactive doxycycline hyclate 100 mg capsule RxNorm: 7913508 1 Capsule(s) PO BID 04/08/2016 04/07/2016 Inactive Diflucan 100 mg tablet RxNorm: 777581 1 Tablet(s) PO QD 04/08/2016 Inactive ondansetron HCl 4 mg tablet RxNorm: 924334 1 Tablet(s) PO Q4H as needed for nausea and vomiting 04/08/2016 09/22/2017 Inactive gabapentin 600 mg tablet RxNorm: 449781 TAKE ONE TABLET BY MOUT H TWICE A DAY 03/24/2016 06/25/2016 Inactive Synthroid 112 mcg tablet RxNorm: 292990 TAKE ONE TABLET BY MOUT H DAILY 02/25/2016 04/22/2016 Inactive Levaquin 500 mg tablet RxNorm: 997898 1 Tablet(s) PO QD 01/23/2016 Inactive prednisone 20 mg tablet RxNorm: 690125 1 Tablet(s) PO T ID for 3 days then 1 po BID for 3 days then one daily for 3 days 01/23/2016 08/25/2016 Inactiv e NGDATA Ultra Test strips RxNorm: TEST BLOOD SUGAR ONCE DAILY 250.00 01/09/2016 11/04/2017 Inactive methocarbamol 750 mg tablet RxNorm: 709466 2 Tablet(s) PO TID as needed for muscle spasm 01/09/2016 04/23/2016 Inactive lactulose 10 gram/15 mL oral solution RxNorm: 654207 [address](s) PO QD 01/09/2016 09/22/2017 Inactive TAKE 1 TABLESPOON BY MOUTH ONCE DAILY metformin ER 500 mg tablet,extended release 24 hr RxNorm: 86 0975 1 Tablet(s) PO QD 12/26/2015 04/22/2016 Inactive fluoxetine 20 mg capsule RxNorm: 160677 1 Capsule(s) PO QD 12/23/19 16 06/19/2016 Inactive Premarin 0.45 mg tablet RxNorm: 820215 TAKE ONE TABLET BY MOUTH DAILY 12/23/2015 05/20/2016 Inactive fluoxetine 40 mg capsule RxNorm: 221277 1 Capsule(s) PO QD 12/23/19 16 06/19/2016 Inactive TAKE ONE CAPSULE BY MOUTH EV JANKI MORNING azithromycin 500 mg tablet RxNorm: 252205 1 Tablet(s) PO QD 016 12/19/2015 Inactive Zofran 4 mg tablet RxNorm: 939667 1 Tablet(s) PO Q4H prn nausea /vomiting 12/13/2015 03/30/2018 Inactive azithromycin 500 mg tablet RxNorm: 195387 1 Tablet(s) PO QD 016 12/12/2015 Inactive Duragesic 100 mcg/hr transdermal patch RxNorm: 216934 2 Application TD Q48H for pain 12/09/2015 01/07/2016 Inactive oxycodone 10 mg tablet RxNorm: 9378361 1-2 Tablet(s) PO QID as n eeded for pain 12/09/2015 06/04/2016 Inactive Bactroban 2 % topical cream RxNorm: 260775 Application TOP BID 11/2208/25/2016 Inactive doxycycline hyclate 100 mg capsule RxNorm: 8277535 1 Capsule(s) PO BID 12/03/2015 12/12/2015 Inactive Topamax 100 mg tablet RxNorm: 020072 TAKE ONE TABLET BY MOUTH EVERY NIGHT AT BEDTIME 11/25/2015 05/22/2016 Inactive Symbicort 160 mcg-4.5 mcg/actuation HFA aerosol inhaler RxNo rm: 1599149 INHALE TWO PUFFS TWO TIMES A DAY 11/25/2015 05/22/2016 Inactive Synthroid 112 mcg tablet RxNorm: 517985 Tablet(s) TAKE ONE TABLET BY MOUTH DAILY 11/25/2015 02/22/2016 Inactive omeprazole 40 mg capsule,delayed release RxNorm: 022752 1 Capsu le(s) PO QD 11/12/2015 05/05/2016 Inactive oxycodone 10 mg tablet RxNorm: 1347169 1-2 Tablet(s) PO QID as n eeded for pain 11/05/2015 12/08/2015 Inactive Duragesic 100 mcg/hr transdermal patch RxNorm: 163729 2 Application TD Q48H for pain 11/05/2015 12/04/2015 Inactive omeprazole 40 mg capsule,delayed release RxNorm: 258140 1 Capsu le(s) PO QD 10/07/2015 11/11/2015 Inactive Januvia 100 mg tablet RxNorm: 639291 TAKE ONE TABLET BY MOUTH DAILY 09/11/2015 12/25/2015 Inactive Zithromax 500 mg tablet RxNorm: 381870 1 Tablet(s) PO QD 09/10/2015 1 Inactive prednisone 20 mg tablet RxNorm: 163440 1 Tablet(s) PO T ID for 3 days then 1 po BID for 3 days then one daily for 3 days 09/10/2015 08/25/2016 Inactiv e Wellbutrin XL 300 mg 24 hr tablet, extended release RxNorm: 980821 1 Tablet(s) PO QAM 09/10/2015 12/02/2015 Inactive Topamax 100 mg tablet RxNorm: 723111 TAKE ONE TABLET BY MOUTH EVERY NIGHT AT BEDTIME 09/02/2015 11/24/2015 Inactive Synthroid 112 mcg tablet RxNorm: 849048 TAKE ONE TABLET BY MOUT H DAILY 09/02/2015 11/25/2015 Inactive methocarbamol 750 mg tablet RxNorm: 401158 2 Tablet(s) PO TID as needed for muscle spasm 08/15/2015 01/09/2016 Inactive Wellbutrin XL 150 mg 24 hr tablet, extended release RxNorm: 433791 TAKE ONE TABLET BY MOUTH EVERY MORNING 08/13/2015 08/13/2015 Inactive gabapentin 600 mg tablet RxNorm: 582997 1 Tablet(s) PO BID 08/13/20 15 02/08/2016 Inactive Wellbutrin XL 300 mg 24 hr tablet, extended release RxNorm: 396296 1 Tablet(s) PO QAM 08/06/2015 09/09/2015 Inactive Wellbutrin XL 150 mg 24 hr tablet, extended release RxNorm: 325012 1 Tablet(s) PO QAM 07/18/2015 08/05/2015 Inactive prednisone 20 mg tablet RxNorm: 551025 1 Tablet(s) PO BID 07/18/2015 07/22/2015 Inactive doxycycline hyclate 100 mg tablet,delayed release RxNorm: 43 4018 1 Tablet(s) PO BID 07/18/2015 07/27/2015 Inactive pravastatin 40 mg tablet RxNorm: 598325 1 Tablet(s) PO QD NEEDS FASTING LAB 07/15/2015 07/14/2015 Inactive pravastatin 40 mg tablet RxNorm: 761655 1 Tablet(s) PO QD NEEDS FASTING LAB 07/15/2015 01/25/2018 Inactive Ventolin HFA 90 mcg/actuation aerosol inhaler RxNorm: 642515 2 Puff(s) INH Q4H 07/08/2015 07/07/2015 Inactive prn Premarin 0.45 mg tablet RxNorm: 872605 1 Tablet(s) PO QD 07/01/2015 0 12/22/2015 Inactive pravastatin 40 mg tablet RxNorm: 631562 1 Tablet(s) PO QD NEEDS FASTING LAB 06/14/2015 07/15/2015 Inactive Ventolin HFA 90 mcg/actuation aerosol inhaler RxNorm: 8628227 2 Puff(s) INH Q4H 06/06/2015 07/08/2015 Inactive prn albuterol sulfate 2.5 mg/3 mL (0.083 %) solution for n ebulization RxNorm: 781851 1 Unit Dose INH QID 05/30/2015 No Stop Date Active Duragesic 100 mcg/hr transdermal patch RxNorm: 580790 2 Application TD Q48H for pain 04/29/2015 05/28/2015 Inactive gabapentin 600 mg tablet RxNorm: 775666 1 Tablet(s) PO BID 04/11/20 15 08/13/2015 Inactive Onglyza 5 mg tablet RxNorm: 774087 1 Tablet(s) PO QD for blood suga r 04/10/2015 04/15/2015 Inactive [Brand Copay Card: RxBIN:[id number] PCN:CRISTIANA RxGRP:[id number] ID#:[id number]] methocarbamol 750 mg tablet RxNorm: 527391 2 Tablet(s) PO TID as needed for muscle spasm 03/28/2015 08/15/2015 Inactive pravastatin 40 mg tablet RxNorm: 844617 1 Tablet(s) PO QD 03/19/2015 03/18/2015 Inactive pravastatin 40 mg tablet RxNorm: 848069 1 Tablet(s) PO QD 03/19/2015 06/14/2015 Inactive lactulose 10 gram/15 mL oral solution RxNorm: 845261 [address]s) PO QD 03/07/2015 01/09/2016 Inactive TAKE 1 TABLESPOON BY MOUTH ONCE DAILY oxycodone 20 mg tablet RxNorm: 3739341 1 Tablet(s) PO QID as nee ded for pain 03/05/2015 07/08/2015 Inactive Topamax 100 mg tablet RxNorm: 254855 1 Tablet(s) PO QHS TAKE ONE TABLET BY MOUTH AT BEDTIME 02/25/2015 02/12/2019 Inactive metformin ER 500 mg tablet,extended release 24 hr RxNorm: 86 0975 1 Tablet(s) PO QD 02/11/2015 03/04/2015 Inactive take one tablet by mouth every day Daliresp 500 mcg tablet RxNorm: 7920079 1 Tablet(s) PO QD 02/11/2015 08/09/2015 Inactive Endocet 10 mg-325 mg tablet RxNorm: 2627875 1 Tablet(s) PO Q4H as needed for pain 01/23/2015 01/23/2015 Inactive gabapentin 600 mg tablet RxNorm: 930347 1 Tablet(s) PO BID 01/23/20 15 04/11/2015 Inactive methocarbamol 750 mg tablet RxNorm: 878744 2 Tablet(s) PO TID as needed for muscle spasm 01/15/2015 02/13/2015 Inactive fluoxetine 40 mg capsule RxNorm: 556479 1 Capsule(s) PO QD 01/14/20 15 12/23/2015 Inactive TAKE ONE CAPSULE BY MOUTH EV JANKI MORNING fluoxetine 20 mg capsule RxNorm: 742577 1 Capsule(s) PO QD 01/14/20 15 12/23/2015 Inactive Premarin 0.45 mg tablet RxNorm: 523066 1 Tablet(s) PO QD 01/02/2015 0 07/01/2015 Inactive Endocet 10 mg-325 mg tablet RxNorm: 6973109 1-2 Tablet(s) PO Q4H 02/12/2019 Inactive PRN PAIN Duragesic 100 mcg/hr transdermal patch RxNorm: 443424 2 Application TD Q48H for pain 12/25/2014 01/23/2015 Inactive Topamax 100 mg tablet RxNorm: 737853 1 Tablet(s) PO QHS TAKE ONE TABLET BY MOUTH AT BEDTIME 12/25/2014 02/24/2015 Inactive Tudorza Pressair 400 mcg/actuation breath activated RxNorm: 7211639 1 BID INHALE ONE PUFF INTO LUNGS TWO TIMES A DAY 12/17/2014 05/15/2015 Inactive Endocet 10 mg-325 mg tablet RxNorm: 7469934 1-2 Tablet(s) PO Q4H 12/19/2014 Inactive PRN PAIN Duragesic 100 mcg/hr transdermal patch RxNorm: 232518 2 Application TD Q48H for pain 11/20/2014 12/24/2014 Inactive OneTouch Ultra Test strips RxNorm: TEST BLOOD SUGAR ONCE DAILY 250.00 11/16/2014 01/08/2016 Inactive omeprazole 40 mg capsule,delayed release RxNorm: 178616 1 Capsu le(s) PO QD 11/13/2014 11/12/2015 Inactive metformin ER 500 mg tablet,extended release 24 hr RxNorm: 86 0975 1 Tablet(s) PO QD 11/12/2014 02/11/2015 Inactive take one tablet by mouth every day Symbicort 160 mcg-4.5 mcg/actuation HFA aerosol inhaler RxNo rm: 7222638 2 Puff(s) INH BID 11/12/2014 03/11/2015 Inactive INHALE 2 PUFFS O RALLY TWO TIMES A DAY gabapentin 800 mg tablet RxNorm: 714117 1 Tablet(s) PO QD TAKE ONE TABLET BY MOUTH ONCE A DAY 10/22/2014 01/01/2015 Inactive Endocet 10 mg-325 mg tablet RxNorm: 9827286 1-2 Tablet(s) PO Q4H 11/15/2014 Inactive PRN PAIN Duragesic 100 mcg/hr transdermal patch RxNorm: 889558 2 Application TD Q48H for pain 10/17/2014 11/19/2014 Inactive gabapentin 800 mg tablet RxNorm: 265889 1 Tablet(s) PO QD TAKE ONE TABLET BY MOUTH ONCE A DAY 10/04/2014 10/21/2014 Inactive Premarin 0.9 mg tablet RxNorm: 202297 1 Tablet(s) PO QD TAKE ONE TABLET BY MOUTH ONCE A DAY 10/04/2014 01/01/2015 Inactive Spiriva with HandiHaler 18 mcg & inhalation capsules RxNorm: 493152 1 Capsule(s) INH QD 10/03/2014 04/30/2015 Inactive Levaquin 500 mg tablet RxNorm: 547355 1 Tablet(s) PO QD 10/03/2014 Inactive prednisone 20 mg tablet RxNorm: 702841 1 Tablet(s) PO QD 10/03/2014 1 12/09/2013 Inactive Duragesic 100 mcg/hr transdermal patch RxNorm: 029124 2 Application TD Q48H for pain 09/18/2014 10/16/2014 Inactive Endocet 10 mg-325 mg tablet RxNorm: 7969221 1-2 Tablet(s) PO Q4H 10/16/2014 Inactive PRN PAIN Synthroid 112 mcg tablet RxNorm: 460907 1 Tablet(s) QD 09/10/2014 Inactive Synthroid 112 mcg tablet RxNorm: 481731 TAKE ONE TABLET BY MOUTH ONE TIME A DAY. NEEDS LABS 09/10/2014 02/06/2015 Inactive omeprazole 40 mg capsule,delayed release RxNorm: 496556 1 Capsu le(s) PO QD 09/03/2014 11/13/2014 Inactive omeprazole 40 mg capsule,delayed release RxNorm: 782797 1 Capsu le(s) PO QD 09/03/2014 09/02/2014 Inactive Spiriva with HandiHaler 18 mcg & inhalation capsules RxNorm: 416098 1 Capsule(s) INH QD 08/27/2014 10/02/2014 Inactive gabapentin 600 mg tablet RxNorm: 713347 1 Tablet(s) PO BID 08/27/20 14 10/22/2014 Inactive Endocet 10 mg-325 mg tablet RxNorm: 5557960 1-2 Tablet(s) PO Q4H 09/17/2014 Inactive PRN PAIN fentanyl 100 mcg/hr transdermal patch RxNorm: 345929 1 Unit Dos e TD QD 08/21/2014 09/19/2014 Inactive Daliresp 500 mcg tablet RxNorm: 4516697 1 Tablet(s) PO QD 08/13/2014 02/11/2015 Inactive Synthroid 112 mcg tablet RxNorm: 131611 TAKE ONE TABLET BY MOUTH ONE TIME A DAY. NEEDS LABS 08/10/2014 09/10/2014 Inactive Endocet 10 mg-325 mg tablet RxNorm: 6566858 1-2 Tablet(s) PO Q4H 08/17/2014 Inactive PRN PAIN Duragesic 100 mcg/hr transdermal patch RxNorm: 763510 2 Application TD Q48H for pain 07/19/2014 09/17/2014 Inactive fluoxetine 40 mg capsule RxNorm: 868775 1 Capsule(s) PO QD 07/17/20 14 01/14/2015 Inactive TAKE ONE CAPSULE BY MOUTH EV JANKI MORNING fluoxetine 20 mg capsule RxNorm: 682273 1 Capsule(s) PO QD 07/17/20 14 01/14/2015 Inactive Spiriva with HandiHaler 18 mcg & inhalation capsules RxNorm: 437844 1 Capsule(s) INH QD 07/17/2014 08/26/2014 Inactive INHALE CONTENTS OF 1 CAPSULE(S) WITH HANDIHALER ONCE DAILY Zofran 4 mg tablet RxNorm: 077541 1 Tablet(s) PO Q4H prn nausea 07/25/2014 Inactive Synthroid 112 mcg tablet RxNorm: 317508 1 Tablet(s) PO QD 07/09/2014 07/09/2014 Inactive methocarbamol 750 mg tablet RxNorm: 067019 2 Tablet(s) PO TID as needed for muscle spasm 07/09/2014 09/06/2014 Inactive Synthroid 112 mcg tablet RxNorm: 548556 1 Tablet(s) PO QD - nee d labs 07/09/2014 08/07/2014 Inactive Medrol (Aníbal) 4 mg tablets in a dose pack RxNorm: 297411 6 Tablet(s) PO QD --then as directed 07/03/2014 07/08/2014 Inactive Tudorza Pressair 400 mcg/actuation breath activated RxNorm: 0135737 1 Puff(s) INH BID 07/03/2014 12/17/2014 Inactive cefdinir 300 mg capsule RxNorm: 578922 1 Capsule(s) PO BID 07/03/20 14 07/12/2014 Inactive Topamax 100 mg tablet RxNorm: 162756 Tablet(s) TAKE ONE TABLET BY MOUTH AT BEDTIME 07/02/2014 02/25/2015 Inactive Duragesic 100 mcg/hr transdermal patch RxNorm: 867825 2 Application TD Q48H for pain 06/25/2014 07/18/2014 Inactive Endocet 10 mg-325 mg tablet RxNorm: 5488579 1-2 Tablet(s) PO Q4H 07/18/2014 Inactive PRN PAIN metformin ER 500 mg tablet,extended release 24 hr RxNorm: 86 0975 1 Tablet(s) PO QD Needs labs 06/18/2014 07/01/2014 Inactive take one tablet by mouth every day Duragesic 100 mcg/hr transdermal patch RxNorm: 057785 2 Application TD Q48H for pain 05/22/2014 06/24/2014 Inactive Synthroid 112 mcg tablet RxNorm: 839223 1 Tablet(s) PO QD 05/22/2014 07/09/2014 Inactive Endocet 10 mg-325 mg tablet RxNorm: 0529239 1-2 Tablet(s) PO Q4H 06/20/2014 Inactive PRN PAIN Endocet 10 mg-325 mg tablet RxNorm: 9628976 1-2 Tablet(s) PO Q4H 05/21/2014 Inactive PRN PAIN Duragesic 100 mcg/hr transdermal patch RxNorm: 748128 2 Application TD Q48H for pain 04/25/2014 05/21/2014 Inactive Daliresp 500 mcg tablet RxNorm: 6905541 1 Tablet(s) PO QD 04/24/2014 08/13/2014 Inactive Symbicort 160 mcg-4.5 mcg/actuation HFA aerosol inhaler RxNo rm: 1241286 2 Puff(s) INH BID 04/24/2014 08/21/2014 Inactive INHALE 2 PUFFS O RALLY TWO TIMES A DAY metformin ER 500 mg tablet,extended release 24 hr RxNorm: 86 0975 1 Tablet(s) PO QD 04/24/2014 11/12/2014 Inactive TAKE ONE TABLET BY MOUTH EVERY DAY [AttnRPh:Saving Apply/Adjudicate RxGRP:LDMGRP RxBIN:[id number] RxPCN:2012 PCode:01 ID#:[id number]] Symbicort 160 mcg-4.5 mcg/actuation HFA aerosol inhaler RxNo rm: 0640352 2 Puff(s) INH BID 04/24/2014 11/12/2014 Inactive INHALE 2 PUFFS O RALLY TWO TIMES A DAY Premarin 0.9 mg tablet RxNorm: 110129 1 Tablet(s) PO QD 04/24/2014 Inactive TAKE ONE TABLET BY MOUTH EVERY DAY metformin ER 500 mg tablet,extended release 24 hr RxNorm: 86 0975 1 Tablet(s) PO QD Needs labs 04/24/2014 06/18/2014 Inactive TAKE ONE TABLET BY MOUTH EVERY DAY [AttnRPh:Saving Apply/Adjudicate RxGRP:LDMGRP RxBIN:[id number] RxPCN:2012 PCode:01 ID#:[id number]] gabapentin 800 mg tablet RxNorm: 539152 1 Tablet(s) PO QD 04/24/2014 10/04/2014 Inactive TAKE ONE TABLET BY MOUTH EVERY DAY Topamax 100 mg tablet RxNorm: 300041 1 Tablet(s) PO QHS 04/17/2014 Inactive Topamax 100 mg tablet RxNorm: 678642 TAKE ONE TABLET BY MOUTH A T BEDTIME 04/17/2014 07/01/2014 Inactive Tudorza Pressair 400 mcg/actuation breath activated RxNorm: 4363400 1 Puff(s) INH BID 04/11/2014 07/02/2014 Inactive Duragesic 100 mcg/hr transdermal patch RxNorm: 319346 2 Application TD Q48H for pain 03/27/2014 04/24/2014 Inactive Endocet 10 mg-325 mg tablet RxNorm: 1118899 1-2 Tablet(s) PO Q4H 04/24/2014 Inactive PRN PAIN Robaxin 750 mg tablet RxNorm: 259129 2 Tablet(s) PO TID as need ed for spasm 02/23/2014 03/28/2015 Inactive Duragesic 100 mcg/hr transdermal patch RxNorm: 239308 2 Application TD Q48H for pain 02/23/2014 No Stop Date Active Endocet 10 mg-325 mg tablet RxNorm: 0308965 1-2 Tablet(s) PO Q4H 03/23/2014 Inactive PRN PAIN Synthroid 112 mcg tablet RxNorm: 164080 1 Tablet(s) PO QD TAKE ONE TABLET BY MOUTH EVERY DAY 02/15/2014 05/22/2014 Inactive Zithromax 500 mg tablet RxNorm: 794243 1 Tablet(s) PO QD 01/30/2014 0 02/05/2014 Inactive Diflucan 100 mg tablet RxNorm: 707964 1 Tablet(s) PO QD 01/30/2014 Inactive prednisone 20 mg tablet RxNorm: 323029 1 Tablet(s) PO BID 01/30/2014 02/05/2014 Inactive fluoxetine 40 mg capsule RxNorm: 807915 1 Capsule(s) PO QD 01/23/20 14 07/16/2014 Inactive TAKE ONE CAPSULE BY MOUTH EV JANKI MORNING fluoxetine 40 mg capsule RxNorm: 298185 1 Capsule(s) PO QD 01/23/20 14 07/17/2014 Inactive TAKE ONE CAPSULE BY MOUTH EV JANKI MORNING cefdinir 300 mg capsule RxNorm: 929426 1 Capsule(s) PO BID 01/16/20 14 01/29/2014 Inactive Zithromax 500 mg tablet RxNorm: 172744 1 Tablet(s) PO QD 01/16/2014 0 01/22/2014 Inactive prednisone 20 mg tablet RxNorm: 296267 1 Tablet(s) PO BID 01/16/2014 01/22/2014 Inactive Spiriva with HandiHaler 18 mcg and inhalation capsules RxNor m: 433789 1 Capsule(s) INH QD 12/18/2013 07/17/2014 Inactive INHALE CONTENT S OF 1 CAPSULE(S) WITH HANDIHALER ONCE DAILY fluoxetine 20 mg capsule RxNorm: 307675 1 Capsule(s) PO QD 12/18/19 14 06/15/2014 Inactive Spiriva with HandiHaler 18 mcg & inhalation capsules RxNorm: 357249 1 Capsule(s) INH QD 12/18/2013 06/15/2014 Inactive INHALE CONTENTS OF 1 CAPSULE(S) WITH HANDIHALER ONCE DAILY fluoxetine 20 mg capsule RxNorm: 183140 1 Capsule(s) PO QD 12/18/19 14 07/17/2014 Inactive cefdinir 300 mg capsule RxNorm: 139759 2 Capsule(s) PO QD 12/12/2013 12/21/2013 Inactive Duragesic 100 mcg/hr transdermal patch RxNorm: 517663 2 Application TD Q48H for pain 12/08/2013 12/07/2013 Inactive Topamax 100 mg tablet RxNorm: 277971 1 Tablet(s) PO QHS 12/04/2013 Inactive Endocet 10 mg-325 mg tablet RxNorm: 8076221 1-2 Tablet(s) PO Q4H 12/26/2013 Inactive PRN PAIN Robaxin 750 mg tablet RxNorm: 480412 2 Tablet(s) PO TID as need ed for spasm 11/07/2013 01/05/2014 Inactive gabapentin 800 mg tablet RxNorm: 127906 1 Tablet(s) PO QD 10/16/2013 04/24/2014 Inactive TAKE ONE TABLET BY MOUTH EVERY DAY Symbicort 160 mcg-4.5 mcg/actuation HFA aerosol inhaler RxNo rm: 9308374 2 Puff(s) INH BID 10/16/2013 04/24/2014 Inactive INHALE 2 PUFFS O RALLY TWO TIMES A DAY Premarin 0.9 mg tablet RxNorm: 999990 1 Tablet(s) PO QD 10/16/2013 Inactive TAKE ONE TABLET BY MOUTH EVERY DAY metformin ER 500 mg tablet,extended release 24 hr RxNorm: 86 0975 1 Tablet(s) PO QD 10/16/2013 04/24/2014 Inactive TAKE ONE TABLET BY MOUTH EVERY DAY Daliresp 500 mcg tablet RxNorm: 4047294 1 Tablet(s) PO QD 10/16/2013 04/24/2014 Inactive Robaxin 750 mg tablet RxNorm: 842648 2 Tablet(s) PO TID as need ed for spasm 10/10/2013 11/06/2013 Inactive Duragesic 100 mcg/hr transdermal patch RxNorm: 603876 2 Application TD Q48H for pain 10/09/2013 No Stop Date Active Soma 350 mg tablet RxNorm: 535870 1 Tablet(s) PO TID 09/27/201310/09 Inactive TAKE ONE TABLET BY MOUTH THREE TIMES A D AY lactulose 10 gram/15 mL oral solution RxNorm: 387854 [address](s) PO QD 09/13/2013 03/07/2015 Inactive TAKE 1 TABLESPOON BY MOUTH ONCE DAILY Duragesic 100 mcg/hr transdermal patch RxNorm: 003296 2 Application TD Q48H for pain 09/06/2013 No Stop Date Active Endocet 10 mg-325 mg tablet RxNorm: 3706288 1-2 Tablet(s) PO Q4H 09/27/2013 Inactive PRN PAIN lancets 28 gauge RxNorm: Miscellaneous As needed for blo od glucose sticks 08/24/2013 No Stop Date Active 16.2 mg-0.1037 mg-0.0194 mg tablet RxNorm: 9870394 Tablet(s) PO PRN for gas and cramping 08/24/2013 01/19/2017 Inactive TAKE TWO TABLET S BY MOUTH THREE TIMES A DAY NEEDED FOR GAS AND CRAMPING Topamax 100 mg tablet RxNorm: 599132 1 Tablet(s) PO QHS 07/31/2013 Inactive Diflucan 100 mg tablet RxNorm: 615656 1 Tablet(s) PO QD 07/27/2013 Inactive cefdinir 300 mg capsule RxNorm: 881353 1 Capsule(s) PO BID 07/26/20 13 08/08/2013 Inactive Daliresp 500 mcg tablet RxNorm: 8306662 1 Tablet(s) PO QD 07/25/2013 10/15/2013 Inactive fluoxetine 40 mg capsule RxNorm: 032710 1 Capsule(s) PO QD 07/25/20 13 01/22/2014 Inactive TAKE ONE CAPSULE BY MOUTH EV JANKI MORNING Senokot-S 8.6 mg-50 mg tablet RxNorm: 8829978 1 Tablet(s) PO BID 10/25/2013 Inactive doxycycline hyclate 100 mg capsule RxNorm: 2263552 1 Capsule(s) PO BID 06/28/2013 07/07/2013 Inactive prednisone 20 mg tablet RxNorm: 512174 1 Tablet(s) PO BID 06/28/2013 07/04/2013 Inactive Zofran 4 mg tablet RxNorm: 496957 1 Tablet(s) PO Q4H prn nausea 03/201307/05/2013 Inactive Spiriva with HandiHaler 18 mcg & inhalation capsules RxNorm: 695426 1 Capsule(s) INH QD 06/26/2013 12/18/2013 Inactive INHALE CONTENTS OF 1 CAPSULE(S) WITH HANDIHALER ONCE DAILY Synthroid 112 mcg tablet RxNorm: 560276 1 Tablet(s) PO QD TAKE ONE TABLET BY MOUTH EVERY DAY 06/19/2013 02/15/2014 Inactive fluoxetine 20 mg capsule RxNorm: 643571 1 Capsule(s) PO QD 06/19/20 13 12/18/2013 Inactive Ventolin HFA 90 mcg/actuation Aerosol Inhaler RxNorm: 4564202 2 Puff(s) INH Q4H 06/05/2013 No Stop Date Active prn Soma 350 mg tablet RxNorm: 793063 1 Tablet(s) PO TID 06/05/201307/04 Inactive TAKE ONE TABLET BY MOUTH THREE TIMES A D AY prednisone 20 mg tablet RxNorm: 769666 1 Tablet(s) PO QD 05/31/2013 0 06/06/2013 Inactive Topamax 100 mg tablet RxNorm: 935531 1 Tablet(s) PO QHS 05/22/2013 Inactive Levaquin 500 mg tablet RxNorm: 733902 1 Tablet(s) PO QD 05/03/2013 Inactive Diflucan 100 mg tablet RxNorm: 215392 1 Tablet(s) PO QD 05/03/2013 Inactive Daliresp 500 mcg tablet RxNorm: 0557187 1 Tablet(s) PO QD 05/01/2013 07/24/2013 Inactive Daliresp 500 mcg tablet RxNorm: 2496093 1 Tablet(s) PO QD 05/01/2013 04/30/2013 Inactive gabapentin 800 mg tablet RxNorm: 457496 1 Tablet(s) PO QD 04/10/2013 10/06/2013 Inactive TAKE ONE TABLET BY MOUTH EVERY DAY metformin ER 500 mg tablet,extended release 24 hr RxNorm: 86 0977 1 Tablet(s) PO QD 04/10/2013 10/06/2013 Inactive TAKE ONE TABLET BY MOUTH EVERY DAY Premarin 0.9 mg tablet RxNorm: 637400 1 Tablet(s) PO QD 04/10/2013 Inactive TAKE ONE TABLET BY MOUTH EVERY DAY Symbicort 160 mcg-4.5 mcg/actuation HFA aerosol inhaler RxNo rm: 0119108 2 Puff(s) INH BID 04/10/2013 10/06/2013 Inactive INHALE 2 PUFFS O RALLY TWO TIMES A DAY Synthroid 112 mcg tablet RxNorm: 150273 1 Tablet(s) PO QD TAKE ONE TABLET BY MOUTH EVERY DAY 04/10/2013 06/18/2013 Inactive Ventolin HFA 90 mcg/actuation Aerosol Inhaler RxNorm: 930727 2 Puff(s) INH Q4H 04/10/2013 No Stop Date Active prn fentanyl 100 mcg/hr transdermal patch RxNorm: 759226 1 Unit Dos e TD QD 04/03/2013 05/02/2013 Inactive Endocet 10 mg-325 mg tablet RxNorm: 8777256 1-2 Tablet(s) PO Q4H 05/02/2013 Inactive PRN PAIN Topamax 100 mg tablet RxNorm: 645719 1 Tablet(s) PO QHS 03/13/2013 Inactive Reglan 10 mg tablet RxNorm: 129160 1 Tablet(s) PO QID b efore meals and at bedtime 03/13/2013 04/09/2015 Inactive fluoxetine 20 mg capsule RxNorm: 799209 1 Capsule(s) PO QD 02/28/20 13 05/27/2013 Inactive Ventolin HFA 90 mcg/actuation Aerosol Inhaler RxNorm: 162864 2 Puff(s) INH Q4H 02/13/2013 No Stop Date Active prn fluoxetine 40 mg capsule RxNorm: 855162 1 Capsule(s) PO QD 01/31/20 13 07/24/2013 Inactive TAKE ONE CAPSULE BY MOUTH EV JANKI MORNING Soma 350 mg tablet RxNorm: 161790 1 Tablet(s) PO TID 01/20/201302/18 Inactive TAKE ONE TABLET BY MOUTH THREE TIMES A D AY Endocet 10 mg-325 mg tablet RxNorm: 1320260 1-2 Tablet(s) PO Q4H 02/06/2013 Inactive PRN PAIN MS Contin 200 mg tablet,extended release RxNorm: 080337 1 Table t(s) PO BID 01/18/2013 02/06/2013 Inactive Ventolin HFA 90 mcg/actuation Aerosol Inhaler RxNorm: 776383 2 Puff(s) INH Q4H 01/04/2013 No Stop Date Active prn Spiriva with HandiHaler 18 mcg & inhalation capsules RxNorm: 151467 1 Capsule(s) INH QD 12/29/2012 06/25/2013 Inactive INHALE CONTENTS OF 1 CAPSULE(S) WITH HANDIHALER ONCE DAILY Spiriva with HandiHaler 18 mcg & inhalation capsules RxNorm: 680574 1 Capsule(s) INH QD 12/26/2012 12/28/2012 Inactive INHALE CONTENTS OF 1 CAPSULE(S) WITH HANDIHALER ONCE DAILY Synthroid 112 mcg tablet RxNorm: 417175 Tablet(s) PO TA KE ONE TABLET BY MOUTH EVERY DAY 12/26/2012 04/09/2013 Inactive Endocet 10 mg-325 mg tablet RxNorm: 1897546 1-2 Tablet(s) PO Q4H 01/17/2013 Inactive PRN PAIN MS Contin 200 mg tablet,extended release RxNorm: 083766 1 Table t(s) PO BID 12/21/2012 01/17/2013 Inactive fluoxetine 20 mg capsule RxNorm: 823093 1 Capsule(s) PO QD 12/06/19 13 02/26/2013 Inactive Synthroid 112 mcg tablet RxNorm: 433485 1 Tablet(s) PO QD 12/06/2012 02/12/2019 Inactive TAKE ONE TABLET BY MOUTH EVERY DAY Ventolin HFA 90 mcg/actuation Aerosol Inhaler RxNorm: 801768 2 Puff(s) INH Q4H 12/06/2012 No Stop Date Active prn Reglan 10 mg tablet RxNorm: 639459 1 Tablet(s) PO QID b efore meals and at bedtime 11/24/2012 03/12/2013 Inactive Topamax 100 mg tablet RxNorm: 174998 1 Tablet(s) PO QHS 11/16/2012 Inactive Ventolin HFA 90 mcg/actuation Aerosol Inhaler RxNorm: 152639 2 Puff(s) INH Q4H 11/09/2012 No Stop Date Active prn gabapentin 800 mg tablet RxNorm: 541741 1 Tablet(s) PO QD 10/27/2012 04/09/2013 Inactive TAKE ONE TABLET BY MOUTH EVERY DAY metformin ER 500 mg tablet,extended release 24 hr RxNorm: 86 0977 1 Tablet(s) PO QD 10/27/2012 04/09/2013 Inactive TAKE ONE TABLET BY MOUTH EVERY DAY Symbicort 160 mcg-4.5 mcg/actuation HFA Aerosol Inhaler RxNo rm: 4374320 2 Puff(s) INH BID 10/27/2012 04/09/2013 Inactive INHALE 2 PUFFS O RALLY TWO TIMES A DAY Premarin 0.9 mg tablet RxNorm: 386516 1 Tablet(s) PO QD 10/27/2012 Inactive TAKE ONE TABLET BY MOUTH EVERY DAY Endocet 10 mg-325 mg tablet RxNorm: 1657872 1-2 Tablet(s) PO Q4H 11/24/2012 Inactive PRN PAIN MS Contin 200 mg tablet,extended release RxNorm: 259008 1 Table t(s) PO BID 10/26/2012 11/24/2012 Inactive Soma 350 mg tablet RxNorm: 089709 1 Tablet(s) PO TID 10/04/201211/02 Inactive TAKE ONE TABLET BY MOUTH THREE TIMES A D AY Ventolin HFA 90 mcg/actuation Aerosol Inhaler RxNorm: 613005 2 Puff(s) INH Q4H 10/03/2012 No Stop Date Active prn Daliresp 500 mcg tablet RxNorm: 1549264 1 Tablet(s) PO QD 09/28/2012 09/27/2012 Inactive Daliresp 500 mcg tablet RxNorm: 9555971 1 Tablet(s) PO QD 09/28/2012 04/25/2013 Inactive fluoxetine 20 mg capsule RxNorm: 300639 1 Capsule(s) PO QD 09/05/20 12 12/06/2012 Inactive Topamax 50 mg tablet RxNorm: 526587 Tablet(s) PO for 1w k then 1 po q HS for 1wk then 2 po q HS 08/29/2012 09/27/2012 Inactive TAKE 1/2 TABLET BY MOUTH AT BEDTIME FOR 1 WEEK, THEN 1 TABLET AT BEDTIME FOR 1 WEEK, THEN 2 TABLETS AT BEDTIME Topamax 100 mg tablet RxNorm: 515343 1 Tablet(s) PO QHS 08/29/2012 Inactive Ventolin HFA 90 mcg/actuation Aerosol Inhaler RxNorm: 359102 2 Puff(s) INH Q4H 08/19/2012 No Stop Date Active prn Ventolin HFA 90 mcg/actuation Aerosol Inhaler RxNorm: 694526 2 Puff(s) INH Q4H 08/15/2012 No Stop Date Active prn Synthroid 112 mcg tablet RxNorm: 895374 1 Tablet(s) PO QD 08/10/2012 11/07/2012 Inactive TAKE ONE TABLET BY MOUTH EVERY DAY Synthroid 112 mcg tablet RxNorm: 271326 1 Tablet(s) PO QD 08/01/2012 08/09/2012 Inactive TAKE ONE TABLET BY MOUTH EVERY DAY Reglan 10 mg tablet RxNorm: 868166 1 Tablet(s) PO QID b efore meals and at bedtime 08/01/2012 11/23/2012 Inactive fluoxetine 40 mg capsule RxNorm: 040154 1 Capsule(s) PO QD 08/01/20 12 01/27/2013 Inactive TAKE ONE CAPSULE BY MOUTH EV AJNKI MORNING Ventolin HFA 90 mcg/actuation Aerosol Inhaler RxNorm: 493568 2 Puff(s) INH Q4H 08/01/2012 No Stop Date Active prn Soma 350 mg tablet RxNorm: 615551 1 Tablet(s) PO TID 07/20/201208/18 Inactive TAKE ONE TABLET BY MOUTH THREE TIMES A D AY Spiriva with HandiHaler 18 mcg & inhalation capsules RxNorm: 002030 1 Capsule(s) INH 07/01/2012 12/25/2012 Inactive INHALE CONTENTS OF 1 CAPSULE(S) WITH HANDIHALER ONCE DAILY Zithromax 250 mg Tab RxNorm: 859022 2 Tablet(s) PO QD 06/28/201206/22 Inactive MS Contin 200 mg tablet,extended release RxNorm: 598630 1 Table t(s) PO BID 06/28/2012 07/27/2012 Inactive Endocet 10 mg-325 mg tablet RxNorm: 0156453 1-2 Tablet(s) PO Q4H 07/27/2012 Inactive PRN PAIN Topamax 100 mg tablet RxNorm: 155955 1 Tablet(s) PO QHS 06/28/2012 Inactive 16.2 mg-0.1037 mg-0.0194 mg tablet RxNorm: 8663603 Tablet(s) PO PRN for gas and cramping 06/08/2012 08/23/2013 Inactive TAKE TWO TABLET S BY MOUTH THREE TIMES A DAY NEEDED FOR GAS AND CRAMPING Ventolin HFA 90 mcg/actuation Aerosol Inhaler RxNorm: 843609 2 Puff(s) INH Q4H 05/23/2012 No Stop Date Active prn Ventolin HFA 90 mcg/actuation Aerosol Inhaler RxNorm: 370155 2 Puff(s) INH Q4H 05/11/2012 No Stop Date Active prn Synthroid 112 mcg tablet RxNorm: 617054 1 Tablet(s) PO QD 05/09/2012 07/31/2012 Inactive TAKE ONE TABLET BY MOUTH EVERY DAY gabapentin 800 mg tablet RxNorm: 825219 1 Tablet(s) PO QD 05/09/2012 10/26/2012 Inactive TAKE ONE TABLET BY MOUTH EVERY DAY fluoxetine 40 mg capsule RxNorm: 572841 1 Capsule(s) PO QD 05/09/2007/31/2012 Inactive TAKE ONE CAPSULE BY MOUTH EV JANKI MORNING metformin ER 500 mg tablet,extended release 24 hr RxNorm: 86 0977 1 Tablet(s) PO QD 05/09/2012 10/26/2012 Inactive TAKE ONE TABLET BY MOUTH EVERY DAY Premarin 0.9 mg tablet RxNorm: 303793 1 Tablet(s) PO QD 05/09/2012 Inactive TAKE ONE TABLET BY MOUTH EVERY DAY Symbicort 160 mcg-4.5 mcg/actuation HFA Aerosol Inhaler RxNo rm: 4874819 2 Puff(s) INH BID 05/09/2012 10/26/2012 Inactive INHALE 2 PUFFS O RALLY TWO TIMES A DAY Endocet 10 mg-325 mg Tab RxNorm: 4106717 1-2 Tablet(s) PO Q4H 04/2705/26/2012 Inactive PRN PAIN MS Contin 200 mg Tab RxNorm: 021497 1 Tablet(s) PO BID 04/26/201202/2012 Inactive Ventolin HFA 90 mcg/actuation Aerosol Inhaler RxNorm: 445773 2 Puff(s) INH Q4H 04/25/2012 05/10/2012 Inactive prn Soma 350 mg tablet RxNorm: 428657 2 Tablet(s) PO TID 04/19/201207/19 Inactive TAKE ONE TABLET BY MOUTH THREE TIMES A D AY Ventolin HFA 90 mcg/actuation Aerosol Inhaler RxNorm: 246737 2 Puff(s) INH Q4H 04/12/2012 04/24/2012 Inactive prn Reglan 10 mg tablet RxNorm: 986417 1 Tablet(s) PO QID b efore meals and at bedtime 04/11/2012 07/31/2012 Inactive MS Contin 200 mg Tab RxNorm: 214157 1 Tablet(s) PO BID 03/30/201202/2012 Inactive Endocet 10 mg-325 mg Tab RxNorm: 4746313 1-2 Tablet(s) PO Q4H 03/3004/26/2012 Inactive PRN PAIN MS Contin 200 mg Tab RxNorm: 347144 1 Tablet(s) PO BID 03/02/201206/2012 Inactive Endocet 10 mg-325 mg Tab RxNorm: 7039085 1-2 Tablet(s) PO Q4H 03/0203/29/2012 Inactive PRN PAIN Daliresp 500 mcg tablet RxNorm: 6664324 1 Tablet(s) PO QD 03/01/2012 09/28/2012 Inactive MS Contin 200 mg Tab RxNorm: 876224 1 Tablet(s) PO BID 02/02/201208/2012 Inactive Endocet 10 mg-325 mg Tab RxNorm: 9137334 1-2 Tablet(s) PO Q4H 02/0103/01/2012 Inactive PRN PAIN fluoxetine 40 mg capsule RxNorm: 558647 1 Capsule(s) PO QD 02/02/2008/01/2012 Inactive TAKE ONE CAPSULE BY MOUTH EV JANKI MORNING Synthroid 112 mcg Tab RxNorm: 263191 1 Tablet(s) PO QD 01/18/2012 Inactive TAKE ONE TABLET BY MOUTH EVERY DAY lactulose 10 gram/15 mL oral solution RxNorm: 957843 [address]s) PO QD 01/18/2012 No Stop Date Active TAKE 1 TABLESPOON BY MOUTH ONCE DAILY Ventolin HFA 90 mcg/actuation Aerosol Inhaler RxNorm: 238681 2 Puff(s) INH Q4H 01/18/2012 04/11/2012 Inactive prn MS Contin 200 mg Tab RxNorm: 911512 1 Tablet(s) PO BID 01/05/201210/2012 Inactive Endocet 10 mg-325 mg Tab RxNorm: 4617714 1-2 Tablet(s) PO Q4H 01/0502/01/2012 Inactive PRN PAIN ProAir HFA 90 mcg/Actuation Aerosol Inhaler RxNorm: 242135 2 Pu ff(s) INH Q4H 12/21/2011 No Stop Date Active prn for wheezing or shortness of breath Spiriva with HandiHaler 18 mcg & inhalation Caps RxNorm: 580 261 1 Capsule(s) INH 12/21/2011 06/30/2012 Inactive INHALE CONTENTS OF 1 CAPSULE(S) WITH HANDIHALER ONCE DAILY Reglan 10 mg Tab RxNorm: 434233 1 Tablet(s) PO QID before meals and at bedtime 12/21/2011 04/10/2012 Inactive Synthroid 112 mcg Tab RxNorm: 973350 1 Tablet(s) PO QD 12/21/2011 Inactive TAKE ONE TABLET BY MOUTH EVERY DAY Endocet 10 mg-325 mg Tab RxNorm: 6302586 1-2 Tablet(s) PO Q4H 11/2512/24/2011 Inactive PRN PAIN MS Contin 200 mg Tab RxNorm: 664261 1 Tablet(s) PO BID 11/25/201112/2011 Inactive lactulose 10 gram/15 mL Oral Soln RxNorm: 629753 Milliliter(s) PO 1 No Stop Date Active TAKE 1 TABLESPOON BY MOUTH O NCE DAILY lactulose 10 gram/15 mL Oral Soln RxNorm: 478371 Milliliter(s) PO 1 12/12/2010 11/20/2011 Inactive TAKE 1 TABLESPOON BY MOUTH O NCE DAILY Premarin 0.9 mg Tab RxNorm: 155942 1 Tablet(s) PO QD 10/12/201105/08 Inactive TAKE ONE TABLET BY MOUTH EVERY DAY fluoxetine 20 mg capsule RxNorm: 386754 1 Capsule(s) PO QD 10/12/2009/05/2012 Inactive TAKE ONE CAPSULE BY MOUTH EV JANKI DAY Synthroid 112 mcg Tab RxNorm: 610337 1 Tablet(s) PO QD 10/12/2011 Inactive TAKE ONE TABLET BY MOUTH EVERY DAY metformin ER 500 mg 24 hr Tab RxNorm: 678626 1 Tablet(s) PO QD 09/2311/10/2011 Inactive TAKE ONE TABLET BY MOUTH GLYNN RY DAY Synthroid 112 mcg Tab RxNorm: 138393 1 Tablet(s) PO QD 10/12/2011 Inactive TAKE ONE TABLET BY MOUTH EVERY DAY metformin ER 500 mg 24 hr Tab RxNorm: 875640 1 Tablet(s) PO QD 09/2310/11/2011 Inactive TAKE ONE TABLET BY MOUTH GLYNN RY DAY Prevacid 30 mg Cap RxNorm: 458786 Capsule(s) PO 10/12/2011 01/25/2012 Inactive TAKE ONE CAPSULE BY MOUTH EVERY DAY Symbicort 160 mcg-4.5 mcg/actuation HFA Aerosol Inhaler RxNo rm: 4031554 2 Puff(s) INH BID 10/12/2011 05/08/2012 Inactive INHALE 2 PUFFS O RALLY TWO TIMES A DAY gabapentin 800 mg Tab RxNorm: 386049 1 Tablet(s) PO QD 10/12/2011 Inactive TAKE ONE TABLET BY MOUTH EVERY DAY MS Contin 200 mg Tab RxNorm: 518979 1 Tablet(s) PO BID 09/23/201111/2010 Inactive Endocet 10 mg-325 mg Tab RxNorm: 0463441 1-2 Tablet(s) PO Q4H 09/2310/22/2011 Inactive PRN PAIN Endocet 10 mg-325 mg Tab RxNorm: 4767884 1-2 Tablet(s) PO Q4H 08/2109/19/2011 Inactive PRN PAIN MS Contin 200 mg Tab RxNorm: 849126 1 Tablet(s) PO BID 08/21/2011 Inactive Diflucan 100 mg Tab RxNorm: 981074 1 Tablet(s) PO QD 08/10/201108/16 Inactive cefdinir 300 mg Cap RxNorm: 216366 2 Capsule(s) PO QD 08/10/201107/24 Inactive Reglan 10 mg Tab RxNorm: 710621 1 Tablet(s) PO AC & HS 07/15/2011 Inactive Endocet 10 mg-325 mg Tab RxNorm: 2852261 1-2 Tablet(s) PO Q4H 07/1508/13/2011 Inactive PRN PAIN One Touch Ultra Test strips RxNorm: Miscellaneous BID 06/11/2011 1 01/16/2014 Inactive TEST TWO TIMES A DAY lactulose 10 gram/15 mL Oral Soln RxNorm: 107037 Milliliter(s) PO 0 06/10/2011 10/11/2011 Inactive TAKE 1 TABLESPOON BY MOUTH O NCE DAILY Chantix Continuing Month Aníbal 1 mg Tab RxNorm: 326412 Tablet(s) PO 0 06/10/2011 11/02/2011 Inactive TAKE DIRECTED - PER PACK[employer] GE INSTRUCTIONS fluoxetine 40 mg Cap RxNorm: 873885 Capsule(s) PO 06/10/2011 02/02/20 12 Inactive TAKE ONE CAPSULE BY MOUTH EVERY MORNING Chantix Continuing Month Aníbal 1 mg Tab RxNorm: 077277 Ta blet(s) PO TAKE DIRECTED - PER PACKAGE INSTRUCTIONS 05/13/2011 06/09/2011 Inactive Soma 350 mg Tab RxNorm: 566144 Tablet(s) PO TAKE ON E TABLET BY MOUTH THREE TIMES A DAY 05/13/2011 04/18/2012 Inactive Chantix Continuing Month Aníbal 1 mg Tab RxNorm: 730516 Ta blet(s) PO as directed per package instructions. 04/22/2011 05/12/2011 Inactive Symbicort 160 mcg-4.5 mcg/Actuation HFA Aerosol Inhaler RxNo rm: 4530274 HFA Aerosol Inhaler INH INHALE 2 PUFFS ORALLY TWO TIMES A DAY 04/13/2011 Inactive Synthroid 112 mcg Tab RxNorm: 299181 Tablet(s) PO TAKE ONE TABLET BY MOUTH EVERY DAY 04/13/2011 10/12/2011 Inactive Premarin 0.9 mg Tab RxNorm: 368530 Tablet(s) PO TAKE ON E TABLET BY MOUTH EVERY DAY 04/13/2011 10/12/2011 Inactive gabapentin 800 mg Tab RxNorm: 910960 Tablet(s) PO TAKE ONE TABLET BY MOUTH EVERY DAY 04/13/2011 10/12/2011 Inactive Prevacid 30 mg Cap RxNorm: 124657 1 Capsule(s) PO QD 04/13/201110/11 Inactive Spiriva with HandiHaler 18 mcg & inhalation Caps RxNorm: 580 261 Capsule(s) INH INHALE CONTENTS OF 1 CAPSULE(S) WITH HANDIHALER ONCE DAILY 04/13/2011 12/21/2011 Inactive metformin ER 500 mg 24 hr Tab RxNorm: 447291 Tablet(s) PO TAKE ONE TABLET BY MOUTH EVERY DAY 04/13/2011 10/12/2011 Inactive Soma 350 mg Tab RxNorm: 159452 1 Tablet(s) PO QID 03/30/2011 02/13/20 19 Inactive fluoxetine 20 mg Cap RxNorm: 250436 Capsule(s) PO TAKE ONE CAPSULE BY MOUTH EVERY DAY 03/25/2011 10/12/2011 Inactive cefdinir 300 mg Cap RxNorm: 582344 2 Capsule(s) PO QD 03/19/201105/2011 Inactive 16.2 mg-0.1037 mg-0.0194 mg Tab RxNorm: 6207578 2 Tablet(s) PO TID PRN for gas and cramping 03/16/2011 07/13/2011 Inactive Soma 350 mg Tab RxNorm: 344599 2 Tablet(s) PO TID 03/16/2011 03/29/20 11 Inactive Chantix Starting Month Aníbal 0.5 mg (11)-1 mg (3x14) Tab s in a Dose Pack RxNorm: 549211 Tablet(s) PO as directed 03/02/2011 No Stop Date Active diazepam 10 mg Tab RxNorm: 451389 1 Tablet(s) PO BID 02/10/201101/19 Inactive Zofran 4 mg tablet RxNorm: 099322 1 Tablet(s) PO Q4H prn nausea 02/16/2011 Inactive Diflucan 100 mg Tab RxNorm: 644228 1 Tablet(s) PO QD 01/18/201101/24 Inactive Premarin 0.625 mg/g Vaginal Cream RxNorm: 746014 VAG In sert 1gm vaginally at bedtime 3 times weekly 01/18/2011 02/12/2019 Inactive loratadine 10 mg Tab RxNorm: 2012068 1 Tablet(s) PO QD 12/17/201003/2012 Inactive Spiriva with HandiHaler 18 mcg & inhalation Caps RxNorm: 580 261 1 Capsule(s) INH QD 12/17/2010 04/12/2011 Inactive Diflucan 100 mg Tab RxNorm: 477759 1 Tablet(s) PO QD 12/17/201012/23 Inactive diazepam 10 mg Tab RxNorm: 135962 1 Tablet(s) PO BID and PRN 201002/12/2019 Inactive One Touch Ultra Test Strips RxNorm: InVt BID Zainab t blood sugar at least twice daily. 11/11/2010 06/11/2011 Inactive fluoxetine 40 mg Cap RxNorm: 608509 1 Capsule(s) PO QAM 11/11/2010 Inactive diazepam 10 mg Tab RxNorm: 725978 1 Tablet(s) PO BID and PRN 200911/12/2010 Inactive Bactrim DS 800 mg-160 mg Tab RxNorm: 808604 1 Tablet(s) PO BID 09/2210/15/2010 Inactive fluoxetine 20 mg Cap RxNorm: 139852 1 Capsule(s) PO QD 10/02/201008/2011 Inactive Bactrim DS 800 mg-160 mg Tab RxNorm: 755418 1 Tablet(s) PO BID 01/201010/03/2010 Inactive Zofran 4 mg Tab RxNorm: 485160 1 Tablet(s) PO Q4H prn nausea 200910/16/2010 Inactive 16.2 mg-0.1037 mg-0.0194 mg Tab RxNorm: 2505202 2 Tablet(s) PO TID PRN for gas and cramping 09/17/2010 10/21/2010 Inactive Gabapentin 800 mg Tab RxNorm: 189527 1 Tablet(s) PO QD 09/16/2010 Inactive ProAir HFA 90 mcg/Actuation Aerosol Inhaler RxNorm: 445142 2 Puff(s) INH Q4H prn shortness of breath 09/15/2010 12/13/2010 Inactive gabapentin 800 mg Tab RxNorm: 364591 1 Tablet(s) PO QD 09/15/2010 Inactive Prevacid 30 mg Cap RxNorm: 785535 1 Capsule(s) PO QD 09/15/201004/12 Inactive loratadine 10 mg Tab RxNorm: 5529774 1 Tablet(s) PO QD 09/15/2010 Inactive Premarin 0.9 mg Tab RxNorm: 556035 1 Tablet(s) PO QD 09/15/201004/12 Inactive Synthroid 112 mcg Tab RxNorm: 960790 1 Tablet(s) PO QD 09/15/2010 Inactive metformin ER 500 mg 24 hr Tab RxNorm: 533341 1 Tablet(s) PO QD 08/2304/12/2011 Inactive Symbicort 160 mcg-4.5 mcg/Actuation Inhalation HFA Aer osol Inhaler RxNorm: 7179000 2 Puff(s) INH BID 09/15/2010 04/12/2011 Inactive diazepam 10 mg Tab RxNorm: 800723 1 Tablet(s) PO BID and PRN 200910/13/2010 Inactive Phentermine 37.5 mg Cap RxNorm: 489962 1 Capsule(s) PO QD 09/02/2010 11/02/2011 Inactive ProAir HFA 90 mcg/Actuation Aerosol Inhaler RxNorm: 394717 2 Puff(s) INH Q4H prn shortness of breath 08/07/2010 No Stop Date Active Premarin 0.9 mg Tab RxNorm: 813187 1 Tablet(s) PO QD 08/07/201009/14 Inactive Loratadine 10 mg Tab RxNorm: 0569515 1 Tablet(s) PO QD 08/07/2010 Inactive Lactulose 10 gram/15 mL Oral Soln RxNorm: 980737 1 Unit Dose PO QD 08/07/2010 02/12/2019 Inactive Zofran 4 mg Tab RxNorm: 969312 1 Tablet(s) PO Q4H prn nausea 2009 No Stop Date Active Gabapentin 800 mg Tab RxNorm: 412250 1 Tablet(s) PO QD 08/07/2010 Inactive Synthroid 112 mcg Tab RxNorm: 072749 1 Tablet(s) PO QD 08/07/2010 Inactive Metformin ER 500 mg 24 hr Tab RxNorm: 900035 1 Tablet(s) PO QD 07/2309/14/2010 Inactive Vitamin D 1,000 unit Tab RxNorm: 829279 1 Tablet(s) PO TID 08/07/2002/12/2019 Inactive Symbicort 160 mcg-4.5 mcg/Actuation Inhalation HFA Aer osol Inhaler RxNorm: 8826864 2 Puff(s) INH BID 08/07/2010 09/14/2010 Inactive Prevacid 30 mg Cap RxNorm: 601476 1 Capsule(s) PO QD 08/07/201009/14 Inactive Metformin ER 500 mg 24 hr Tab RxNorm: 445591 1 Tablet(s) PO QD 06/2308/06/2010 Inactive Vitamin D 1,000 unit Tab RxNorm: 718673 1 Tablet(s) PO TID 07/14/2008/06/2010 Inactive Synthroid 112 mcg Tab RxNorm: 791024 1 Tablet(s) PO QD 07/14/2010 Inactive Lactulose 10 gram/15 mL Oral Soln RxNorm: 332468 1 Unit Dose PO QD 07/14/2010 08/06/2010 Inactive Levaquin 500 mg Tab RxNorm: 695913 1 Tablet(s) PO QD 07/14/201007/27 Inactive Premarin 0.9 mg Tab RxNorm: 268857 1 Tablet(s) PO QD 07/14/201008/06 Inactive ProAir HFA 90 mcg/Actuation Aerosol Inhaler RxNorm: 619961 2 Puff(s) INH Q4H prn shortness of breath 07/14/2010 No Stop Date Active Prevacid 30 mg Cap RxNorm: 001675 1 Capsule(s) PO QD 07/14/201008/06 Inactive Zofran 4 mg Tab RxNorm: 836213 1 Tablet(s) PO Q4H prn nausea 2009 No Stop Date Active Symbicort 160 mcg-4.5 mcg/Actuation Inhalation HFA Aer osol Inhaler RxNorm: 1077357 2 Puff(s) INH BID 07/14/2010 08/06/2010 Inactive Loratadine 10 mg Tab RxNorm: 6021371 1 Tablet(s) PO QD 07/14/2010 Inactive Gabapentin 800 mg Tab RxNorm: 404202 1 Tablet(s) PO QD 07/14/2010 Inactive Metformin ER 500 mg 24 hr Tab RxNorm: 438470 1 Tablet(s) PO 010 07/13/2010 Inactive Diazepam 10 mg Tab RxNorm: 570015 1 Tablet(s) PO BID and PRN 200909/06/2010 Inactive Premarin 0.9 mg Tab RxNorm: 051388 1 Tablet(s) PO QD 06/09/201007/13 Inactive Zofran 4 mg Tab RxNorm: 535451 1 Tablet(s) PO Q4H prn nausea 2009 No Stop Date Active ProAir HFA 90 mcg/Actuation Aerosol Inhaler RxNorm: 658007 2 Puff(s) INH Q4H prn shortness of breath 06/09/2010 No Stop Date Active Gabapentin 800 mg Tab RxNorm: 031669 1 Tablet(s) PO QD 06/09/2010 Inactive Loratadine 10 mg Tab RxNorm: 1607186 1 Tablet(s) PO QD 06/09/2010 Inactive Lactulose 10 gram/15 mL Oral Soln RxNorm: 550266 1 Unit Dose PO QD 06/09/2010 07/13/2010 Inactive Prevacid 30 mg Cap RxNorm: 207097 1 Capsule(s) PO QD 06/09/201007/13 Inactive Synthroid 112 mcg Tab RxNorm: 968505 1 Tablet(s) PO QD 06/09/2010 Inactive Symbicort 160 mcg-4.5 mcg/Actuation Inhalation HFA Aer osol Inhaler RxNorm: 6561468 2 Puff(s) INH BID 06/09/2010 07/13/2010 Inactive Omnicef 300 mg Cap RxNorm: 313926 2 Capsule(s) PO QD 05/07/201005/20 Inactive Metformin 500 mg Tab RxNorm: 048351 1 Tablet(s) PO QD 05/06/201005/22 Inactive ProAir HFA 90 mcg/Actuation Aerosol Inhaler RxNorm: 581896 2 Puff(s) INH Q4H prn shortness of breath 05/06/2010 No Stop Date Active lactulose 10 gram/15 mL Oral Soln RxNorm: 034424 1 Unit Dose PO QD 05/06/2010 06/10/2011 Inactive Loratadine 10 mg Tab RxNorm: 3338950 1 Tablet(s) PO QD 05/06/2010 Inactive Synthroid 112 mcg Tab RxNorm: 786891 1 Tablet(s) PO QD 05/06/2010 Inactive Symbicort 160 mcg-4.5 mcg/Actuation Inhalation HFA Aer osol Inhaler RxNorm: 1639216 2 Puff(s) INH BID 05/06/2010 06/08/2010 Inactive Gabapentin 800 mg Tab RxNorm: 337623 1 Tablet(s) PO QD 05/06/2010 Inactive 16.2 mg-0.1037 mg-0.0194 mg Tab RxNorm: 4293007 2 Tablet(s) PO TID PRN for gas and cramping 05/06/2010 05/12/2010 Inactive Zofran 4 mg Tab RxNorm: 595983 1 Tablet(s) PO Q4H prn nausea 200904/13/2010 Inactive MS Contin 60 mg Tab RxNorm: 509246 3 Tablet(s) PO BID 04/09/201004/22 Inactive Soma 350 mg Tab RxNorm: 934989 2 Tablet(s) PO TID 04/09/2010 05/08/20 10 Inactive Symbicort 160 mcg-4.5 mcg/Actuation Inhalation HFA Aer osol Inhaler RxNorm: 5150906 2 Puff(s) INH BID 04/08/2010 05/05/2010 Inactive Doxycycline 100 mg Cap RxNorm: 9321737 1 Capsule(s) PO BID 04/08/20 10 04/17/2010 Inactive Triamterene-Hydrochlorothiazide 37.5 mg-25 mg Cap RxNorm: 19 8316 1 Capsule(s) PO QAM 04/08/2010 09/04/2010 Inactive fluoxetine 40 mg Cap RxNorm: 577573 1 Capsule(s) PO QAM 04/08/2010 Inactive Morphine SR 120 mg multiphase 24 hr Cap RxNorm: 593786 1 Capsul e(s) PO 03/11/2010 04/07/2010 Inactive Endocet 10 mg-325 mg Tab RxNorm: 6604633 1-2 Tablet(s) PO Q4H FL N PAIN 03/11/2010 04/09/2010 Inactive Savella 100 mg Tab RxNorm: 775511 1 Tablet(s) PO BID 03/10/201004/09 Inactive Soma 350 mg Tab RxNorm: 926978 1 Tablet(s) PO TID prn spasm 010 04/09/2010 Inactive Savella 100 mg Tab RxNorm: 307623 1 Tablet(s) PO BID 02/03/201004/09 Inactive Aspirin 81 mg Tab RxNorm: 872155 1 Tablet(s) PO QD No Start Date Active Zyrtec 10 mg Tab RxNorm: 3179644 1 Tablet(s) PO QD No Start Date Active One Touch Ultra Test Strips RxNorm: Misc test at least t wice daily. No Start Date Active coenzyme Q10 200 mg capsule RxNorm: 426930 1 Capsule(s) PO QD No Star t Date Active One Touch Ultra Test Strips RxNorm: InVt BID Zainab t blood sugar at least twice daily. No Start Date 11/10/2010 Inactive Gabapentin 800 mg Tab RxNorm: 928466 1 Tablet(s) PO QD No Start Date 05/05/2010 Inactive Abilify 5 mg tablet RxNorm: 172884 1 Tablet(s) PO QD No Start Date Inactive Chantix 1 mg Tab RxNorm: 232797 1 Tablet(s) PO BID No Start Date 10/22 Inactive Ozempic 0.25 mg or 0.5 mg (2 mg/1.5 mL) subcutaneous p en injector RxNorm: 3426586 .25 Milligram(s) SQ QW No Start Date 07/04/2019 Inactive lancets 28 gauge RxNorm: Miscellaneous As needed for blo od glucose sticks No Start Date 08/23/2013 Inactive potassium chloride ER 20 mEq tablet,extended release RxNorm: 003751 2 Tablet(s) PO QD No Start Date 09/26/2018 Inactive Ventolin HFA 90 mcg/actuation Aerosol Inhaler RxNorm: 256923 2 Puff(s) INH Q4H prn No Start Date 01/17/2012 Inactive potassium chloride ER 20 mEq tablet,extended release RxNorm: 317614 2 Tablet(s) PO QD No Start Date 10/19/2018 Inactive Januvia 100 mg tablet RxNorm: 857818 1 Tablet(s) PO QD No Start Date 09/10/2015 Inactive Medrol (Aníbal) 4 mg Tabs in a Dose Pack RxNorm: 772193 Tablet(s) PO N o Start Date 08/09/2011 Inactive as directed Zithromax Z-Aníbal 250 mg Tab RxNorm: 361032 Tablet(s) PO No Start Date 01/25/2012 Inactive as directed vitamin B6-vitamin E-magnesium tablet RxNorm: 1 Tablet(s ) PO QHS with INH No Start Date 03/30/2018 Inactive prednisone 20 mg Tab RxNorm: 244827 1 Tablet(s) PO TID for 1wk then 1 po BID for 1wk No Start Date 01/25/2012 Inactive furosemide 40 mg tablet RxNorm: 306666 1 Tablet(s) PO QAM No Start Date 10/09/2018 Inactive Vitamin D3 1000 units Capsule RxNorm: 1 Capsule(s) PO TID No S tart Date 03/19/2015 Inactive Zofran 4 mg Tab RxNorm: 275201 1 Tablet(s) PO Q4H prn nausea No Sta rt Date 04/13/2010 Inactive Premarin 0.625 mg/g Vaginal Cream RxNorm: 448270 1 Gram (s) VAG QHS 3 times a week No Start Date 09/22/2017 Inactive oxycodone 10 mg tablet RxNorm: 6488965 1-2 Tablet(s) PO QID as n eeded for pain No Start Date 11/04/2015 Inactive Nicoderm CQ 21 mg/24 hr daily Patch RxNorm: 213512 1 Applicatio n TD QD No Start Date 08/05/2015 Inactive Topamax 50 mg tablet RxNorm: 159001 1/2 Tablet(s) PO QH S for 1wk then 1 po q HS for 1wk then 2 po q HS No Start Date 06/27/2012 Inactive Chantix Starting Month Aníbal 0.5 mg (11)-1 mg (3x14) Tab s in a Dose Pack RxNorm: 183524 Tablet(s) PO as directed No Start Date 03/01/2011 Inactive Trulicity 0.75 mg/0.5 mL subcutaneous pen injector RxNorm: 1 115614 Milliliter(s) SQ No Start Date 07/04/2019 Inactive Medrol (Aníbal) 4 mg Tabs in a Dose Pack RxNorm: 593986 Tablet(s) PO N o Start Date 01/25/2012 Inactive as directed Duragesic 100 mcg/hr Transderm Patch RxNorm: 218392 2 A pplication TD Q48H for pain No Start Date 09/05/2013 Inactive Premarin 0.9 mg Tab RxNorm: 134579 1 Tablet(s) PO QD No Start Date Inactive Zithromax Z-Aníbal 250 mg Tab RxNorm: 633971 Tablet(s) PO as direc chinmay No Start Date 01/25/2012 Inactive ondansetron 8 mg disintegrating tablet RxNorm: 804977 1 Tablet(s) PO Q6H as needed No Start Date 10/10/2018 Inactive oxycodone 15 mg tablet RxNorm: 3203916 1 Tablet(s) PO QID as nee ded for pain No Start Date 03/05/2019 Inactive ProAir HFA 90 mcg/Actuation Aerosol Inhaler RxNorm: 201798 2 Puff(s) INH Q4H prn for wheezing or shortness of breath No Start Date 12/21/2011 Inactive pravastatin 40 mg tablet RxNorm: 461725 1/2 Tablet(s) PO QOD No Sta rt Date 04/09/2015 Inactive ipratropium-albuterol 0.5 mg-3 mg(2.5 mg base)/3 mL ne bulization soln RxNorm: 1317003 1 Unit Dose INH Q4H as needed No Start Date 09/09/2016 Inactive furosemide 40 mg tablet RxNorm: 353396 1 Tablet(s) PO QAM as ne eded No Start Date 09/24/2019 Inactive Vitamin D2 oral RxNorm: 4018 oral No Start Date 03/18/2015 Inacti ve pravastatin 40 mg tablet RxNorm: 385443 1/2 Tablet(s) PO QD No Star t Date 04/09/2015 Inactive ondansetron HCl 4 mg tablet RxNorm: 114911 1 Tablet(s) PO Q4H as needed for nausea and vomiting No Start Date 04/07/2016 Inactive furosemide 40 mg tablet RxNorm: 043566 2 Tablet(s) PO QAM No Start Date 09/26/2018 Inactive gabapentin 800 mg tablet RxNorm: 101318 1/2 Tablet(s) PO BID No Sta rt Date 06/21/2017 Inactive gabapentin 800 mg tablet RxNorm: 302722 1/2 Tablet(s) PO BID No Sta rt Date 07/05/2017 Inactive ProAir HFA 90 mcg/Actuation Aerosol Inhaler RxNorm: 911227 2 Puff(s) INH Q4H prn shortness of breath No Start Date 05/05/2010 Inactive scopolamine 1 mg over 3 days transdermal patch RxNorm: 14594 2 1 Application TD behind ear. Take off after three days No Start Date 10/10/2018 Inactive Metformin 500 mg Tab RxNorm: 041550 1 Tablet(s) PO QD No Start Date 0 05/05/2010 Inactive MS Contin 200 mg Tab RxNorm: 250933 1 Tablet(s) PO BID No Start Date 08/20/2011 Inactive Belladonna-Phenobarbital 48 mg tablet,extended release RxNor m: 2 Tablet(s) PO TID No Start Date 06/04/2016 Inactive Synthroid 112 mcg Tab RxNorm: 635614 1 Tablet(s) PO QD No Start Date 05/05/2010 Inactive Zegerid 40 mg-1.1 gram Cap RxNorm: 151645 1 Capsule(s) PO QD No Sta rt Date 01/25/2012 Inactive Premarin 0.625 mg/g Vaginal Cream RxNorm: 831756 VAG In sert 1gm vaginally at bedtime 3 times weekly No Start Date 01/17/2011 Inactive potassium chloride ER 20 mEq tablet,extended release RxNorm: 296489 1 Tablet(s) PO QD No Start Date 04/24/2019 Inactive methocarbamol 750 mg tablet RxNorm: 230429 2 Tablet(s) PO TID as needed for muscle spasm No Start Date 07/08/2014 Inactive Biaxin XL Aníbal 500 mg 24 hr Tab RxNorm: 465522 Tablet(s) PO as d irected No Start Date 04/24/2013 Inactive Vitamin D3 1,000 unit tablet RxNorm: 244297 3 Tablet(s) PO QD No St art Date 06/01/2017 Inactive Morphine SR 120 mg multiphase 24 hr Cap RxNorm: 850691 1 Capsul e(s) PO BID No Start Date 04/09/2010 Inactive Silvadene 1 % topical cream RxNorm: 588161 1 Application TOP BI D to burn area No Start Date 01/31/2017 Inactive Prednisone 20 mg Tab RxNorm: 382056 1 Tablet(s) PO TID for 3days then BID for 4days No Start Date 01/25/2012 Inactive gabapentin 600 mg tablet RxNorm: 653081 1 Tablet(s) PO BID No Start Date 01/21/2015 Inactive topiramate 50 mg tablet RxNorm: 296877 1 Tablet(s) PO QHS No Start Date 03/30/2018 Inactive Januvia 100 mg tablet RxNorm: 908995 1/2 Tablet(s) PO QD No Start D ate 12/25/2015 Inactive Diazepam 10 mg Tab RxNorm: 116960 1 Tablet(s) PO BID and PRN No Sta rt Date 06/08/2010 Inactive Medication Administered No Medication Administered data Immunizations Vaccine Codes Date Status Influenza CVX: 141 09/28/2012 Pneumovax Unknown 09/28/2012 Influenza (Adult) CVX: 141 09/02/2010 Results No Results data Procedures Procedure Codes Date THER/PROPH/DIAG INJ SC/IM CPT-4: 61932 07/10/2019 METHYLPREDNISOLONE INJECTION CPT-4: J2930 07/10/2019 URINALYSIS NONAUTO W/O SCOPE CPT-4: 81351 09/06/2018 URINE CULTURE/ COLONY COUNT CPT-4: 92433 09/06/2018 DRAIN/INJECT JOINT/BURSA CPT-4: 31216 04/29/2017 TRIAMCINOLONE ACET INJ NOS CPT-4: J3301 04/29/2017 DEXAMETHASONE SODIUM PHOS CPT-4: J1100 04/29/2017 INFLUENZA ASSAY W/OPTIC CPT-4: 63604 12/01/2016 RESPIRATORY CULTURE & STAIN CPT-4: 55822 07/09/2016 TB INTRADERMAL TEST CPT-4: 29453 04/21/2016 DRAIN/INJECT JOINT/BURSA CPT-4: 19589 11/07/2013 METHYLPREDNISOLONE 40 MG INJ CPT-4: J1030 11/07/2013 TRIAMCINOLONE ACET INJ NOS CPT-4: J3301 11/07/2013 DRAIN/INJECT JOINT/BURSA CPT-4: 62983 08/08/2013 METHYLPREDNISOLONE 40 MG INJ CPT-4: J1030 08/08/2013 TRIAMCINOLONE ACET INJ NOS CPT-4: J3301 08/08/2013 FLU VACCINE 3 YRS & > IM UP 64 CPT-4: 59293 2 PNEUMOCOCCAL VACC 23 ADITYA IM CPT-4: 62381 09/28/2012 IMMUNIZATION ADMIN CPT-4: 81324 09/28/2012 IMMUNIZATION ADMIN EACH ADD CPT-4: 91412 09/28/2012 FLU VACCINE 3 YRS & > IM UP 64 CPT-4: 90478 0 IMMUNIZATION ADMIN CPT-4: 90678 09/02/2010 METHYLPREDNISOLONE INJECTION CPT-4: J2930 05/07/2010 THER/PROPH/DIAG INJ SC/IM CPT-4: 55561 05/07/2010 Vital Signs Date Vital 11/29/2019 Blood [...] 1: 122/78 Code: 8480-6 BMI: 29.5 Code: 57304-8 Heart Rate 1: 76 bpm Height: 5'4" Respiratory Rate: 20 bpm SpO2: 96% Tempera ture: 37.0 (C) / 98.6 (F) Weight: 172 lbs 01/25/2019 Blood Pressure 1: 132/80 Code: 8480-6 BMI: 29.7 Code: 26036-9 Heart Rate 1: 84 bpm Height: 5'4" Respiratory Rate: 22 bpm SpO2: 98% Tempera ture: 36.9 (C) / 98.4 (F) Weight: 173 lbs 01/03/2019 Blood Pressure 1: 116/70 Code: 8480-6 BMI: 29.5 Code: 51416-0 Heart Rate 1: 92 bpm Height: 5'4" Respiratory Rate: 24 bpm SpO2: 98% Tempera ture: 37.2 (C) / 98.9 (F) Weight: 172 lbs 11/21/2018 Blood Pressure 1: 146/82 Code: 8480-6 BMI: 28.2 Code: 26517-2 Heart Rate 1: 88 bpm Height: 5'4" Respiratory Rate: 22 bpm SpO2: 97% Tempera ture: 36.9 (C) / 98.4 (F) Weight: 164 lbs 10/27/2018 Blood Pressure 1: 122/70 Code: 8480-6 BMI: 27.6 Code: 66578-9 Heart Rate 1: 88 bpm Height: 5'4" Respiratory Rate: 20 bpm SpO2: 96% Tempera ture: 36.8 (C) / 98.3 (F) Weight: 161 lbs 10/18/2018 Blood Pressure 1: 126/70 Code: 8480-6 BMI: 28.3 Code: 42068-0 Heart Rate 1: 76 bpm Height: 5'4" Respiratory Rate: 20 bpm SpO2: 95% Tempera ture: 37.0 (C) / 98.6 (F) Weight: 165 lbs 09/27/2018 Blood Pressure 1: 124/78 Code: 8480-6 BMI: 27.1 Code: 56979-0 Heart Rate 1: 88 bpm Height: 5'4" Respiratory Rate: 20 bpm SpO2: 98% Tempera ture: 36.4 (C) / 97.6 (F) Weight: 158 lbs 09/14/2018 Blood Pressure 1: 140/72 Code: 8480-6 BMI: 26.1 Code: 25287-9 Heart Rate 1: 100 bpm Height: 5'4" Respiratory Rate: 20 bpm SpO2: 97% Tempera ture: 36.9 (C) / 98.4 (F) Weight: 152 lbs 09/06/2018 Blood Pressure 1: 156/82 Code: 8480-6 BMI: 26.3 Code: 67116-1 Heart Rate 1: 100 bpm Height: 5'4" Respiratory Rate: 28 bpm SpO2: 95% Tempera ture: 37.2 (C) / 98.9 (F) Weight: 153 lbs 08/16/2018 Blood Pressure 1: 130/78 Code: 8480-6 Heart Rate 1: 87 bpm Respiratory Rate: 24 bpm SpO2: 94% Temperature: 36.9 (C) / 98.4 (F) We ight: 147 lbs 8 oz 07/07/2018 Blood Pressure 1: 116/78 Code: 8480-6 BMI: 22.7 Code: 25144-2 Heart Rate 1: 88 bpm Height: 5'4" Respiratory Rate: 22 bpm SpO2: 98% Tempera ture: 36.5 (C) / 97.7 (F) Weight: 132 lbs 05/31/2018 Blood Pressure 1: 128/78 Code: 8480-6 BMI: 22.3 Code: 37601-8 Heart Rate 1: 92 bpm Height: 5'4" Respiratory Rate: 26 bpm SpO2: 94% Tempera ture: 36.7 (C) / 98.1 (F) Weight: 130 lbs 03/31/2018 Blood Pressure 1: 136/78 Code: 8480-6 BMI: 21.5 Code: 77315-5 Heart Rate 1: 76 bpm Height: 5'4" Respiratory Rate: 24 bpm SpO2: 95% Tempera ture: 36.8 (C) / 98.3 (F) Weight: 125 lbs 01/26/2018 Blood Pressure 1: 142/64 Code: 8480-6 BMI: 20.6 Code: 04380-6 Heart Rate 1: 90 bpm Height: 5'4" Respiratory Rate: 24 bpm SpO2: 92% Tempera ture: 36.3 (C) / 97.3 (F) Weight: 120 lbs 10/26/2017 Blood Pressure 1: 124/70 Code: 8480-6 BMI: 20.3 Code: 47203-7 Heart Rate 1: 76 bpm Height: 5'4" Respiratory Rate: 22 bpm SpO2: 94% Tempera ture: 36.7 (C) / 98.1 (F) Weight: 118 lbs 09/23/2017 Blood Pressure 1: 106/70 Code: 8480-6 BMI: 19.2 Code: 29362-0 Heart Rate 1: 76 bpm Height: 5'4" Respiratory Rate: 20 bpm SpO2: 94% Tempera ture: 36.8 (C) / 98.3 (F) Weight: 112 lbs 08/12/2017 Blood Pressure 1: 116/68 Code: 8480-6 BMI: 20.1 Code: 01001-2 Heart Rate 1: 80 bpm Height: 5'4" Respiratory Rate: 22 bpm SpO2: 95% Tempera ture: 36.8 (C) / 98.2 (F) Weight: 117 lbs 07/06/2017 Blood Pressure 1: 136/78 Code: 8480-6 BMI: 20.6 Code: 57058-1 Heart Rate 1: 76 bpm Height: 5'4" Respiratory Rate: 24 bpm SpO2: 96% Tempera ture: 36.8 (C) / 98.2 (F) Weight: 120 lbs 06/02/2017 Blood Pressure 1: 11270 Code: 8480-6 Heart Rate 1: 92 bpm Height: 5'4" Respiratory Rate: 24 bpm SpO2: 95% Temperature: 37.0 (C) / 98.6 (F) Weight: 04/29/2017 Blood Pressure 1: 94/52 Code: 8480-6 BMI: 19.6 C ode: 32498-9 Heart Rate 1: 84 bpm Height: 5'4" [...] 92/58 Code: 8480-6 BMI: 19.2 C ode: 19446-4 Heart Rate 1: 84 bpm Height: 5'4" Respiratory Rate: 26 bpm SpO2: 95% Tempera ture: 36.7 (C) / 98.0 (F) Weight: 112 lbs 12/01/2016 Blood Pressure 1: 114/70 Code: 8480-6 BMI: 19.2 Code: 65859-2 Heart Rate 1: 96 bpm Height: 5'4" Respiratory Rate: 28 bpm SpO2: 93% Tempera ture: 38.3 (C) / 101.0 (F) Weight: 112 lbs 10/27/2016 Blood Pressure 1: 126/66 Code: 8480-6 BMI: 19.6 Code: 22623-6 Heart Rate 1: 92 bpm Height: 5'4" Respiratory Rate: 28 bpm SpO2: 90% Tempera ture: 36.8 (C) / 98.3 (F) Weight: 114 lbs 09/09/2016 Blood Pressure 1: 126/74 Code: 8480-6 Heart Rate 1: 104 bpm Height: 5'4" Respiratory Rate: 32 bpm SpO2: 88% Temperature: 37 .2 (C) / 99.0 (F) 08/26/2016 Blood Pressure 1: 134/82 Code: 8480-6 BMI: 22.0 Code: 93141-1 Heart Rate 1: 84 bpm Height: 5'4" Respiratory Rate: 24 bpm SpO2: 94% Tempera ture: 36.8 (C) / 98.3 (F) Weight: 128 lbs 05/21/2016 Blood Pressure 1: 142/80 Code: 8480-6 BMI: 21.6 Code: 09015-1 Heart Rate 1: 104 bpm Height: 5'4" Respiratory Rate: 22 bpm SpO2: 93% Tempera ture: 36.0 (C) / 96.8 (F) Weight: 126 lbs 03/25/2016 Blood Pressure 1: 126/62 Code: 8480-6 Heart Rate 1: 88 bpm Respiratory Rate: 20 bpm SpO2: 92% Temperature: 36.8 (C) / 98.3 (F) We ight: 130 lbs 01/23/2016 Blood Pressure 1: 146/82 Code: 8480-6 BMI: 24.1 Code: 54987-8 Heart Rate 1: 92 bpm Height: 5'3" Respiratory Rate: 22 bpm Temperature: 37 .1 (C) / 98.8 (F) Weight: 136 lbs 12/26/2015 Blood Pressure 1: 142/78 Code: 8480-6 BMI: 24.6 Code: 08457-2 Heart Rate 1: 78 bpm Height: 5'3" Respiratory Rate: 20 bpm Temperature: 36 .7 (C) / 98.1 (F) Weight: 139 lbs 12/03/2015 Blood Pressure 1: 126/60 Code: 8480-6 BMI: 24.6 Code: 59537-9 Heart Rate 1: 100 bpm Height: 5'3" Respiratory Rate: 28 bpm Temperature: 37 .6 (C) / 99.6 (F) Weight: 139 lbs 09/10/2015 Blood Pressure 1: 124/64 Code: 8480-6 BMI: 23.7 Code: 56122-5 Heart Rate 1: 88 bpm Height: 5'3" Respiratory Rate: 24 bpm SpO2: 95% Tempera ture: 36.4 (C) / 97.6 (F) Weight: 134 lbs 08/06/2015 Blood Pressure 1: 114/76 Code: 8480-6 BMI: 23.2 Code: 44262-5 Heart Rate 1: 88 bpm Height: 5'3" Respiratory Rate: 22 bpm Temperature: 36 .6 (C) / 97.9 (F) Weight: 131 lbs 07/18/2015 Blood Pressure 1: 144/78 Code: 8480-6 BMI: 23.7 Code: 32657-2 Heart Rate 1: 84 bpm Height: 5'3" Respiratory Rate: 20 bpm Temperature: 37 .2 (C) / 99.0 (F) Weight: 134 lbs 04/10/2015 Blood Pressure 1: 110/64 Code: 8480-6 Heart Rate 1: 80 bpm Height: Respiratory Rate: 20 bpm Temperature: 37.1 (C) / 98.8 (F) Weight: 03/05/2015 Blood Pressure 1: 136/80 Code: 8480-6 BMI: 23.9 Code: 89412-5 Heart Rate 1: 76 bpm Height: 5'3" Respiratory Rate: 24 bpm Temperature: 37 .0 (C) / 98.6 (F) Weight: 135 lbs 01/30/2015 Blood Pressure 1: 142/80 Code: 8480-6 BMI: 23.0 Code: 18441-2 Heart Rate 1: 96 bpm Height: 5'3" Respiratory Rate: 22 bpm Temperature: 36 .2 (C) / 97.2 (F) Weight: 130 lbs 01/02/2015 Blood Pressure 1: 124/70 Code: 8480-6 BMI: 23.4 Code: 22282-1 Heart Rate 1: 84 bpm Height: 5'3" Respiratory Rate: 24 bpm SpO2: 95% Tempera ture: 36.9 (C) / 98.5 (F) Weight: 132 lbs 10/03/2014 Blood Pressure 1: 106/68 Code: 8480-6 BMI: 22.5 Code: 86170-0 Heart Rate 1: 88 bpm Height: 5'3" Respiratory Rate: 24 bpm Temperature: 37 .0 (C) / 98.6 (F) Weight: 127 lbs 08/27/2014 Blood Pressure 1: 124 Code: 8480-6 BMI: 21.1 Code: 19805-5 Heart Rate 1: 88 bpm Height: 5'3" [...] 1: 120/70 Code: 8480-6 BMI: 19.2 Code: 80946-2 Heart Rate 1: 70 bpm Height: 5'4" Respiratory Rate: 20 bpm Temperature: 36 .9 (C) / 98.4 (F) Weight: 112 lbs 06/28/2013 Blood Pressure 1: 102/68 Code: 8480-6 BMI: 19.6 Code: 73920-3 Heart Rate 1: 76 bpm Height: 5'4" Respiratory Rate: 20 bpm Temperature: 36 .8 (C) / 98.2 (F) Weight: 114 lbs 05/31/2013 Blood Pressure 1: 106/70 Code: 8480-6 BMI: 18.9 Code: 46939-6 Heart Rate 1: 100 bpm Height: 5'4" Respiratory Rate: 20 bpm Temperature: 36 .4 (C) / 97.6 (F) Weight: 110 lbs 05/03/2013 Blood Pressure 1: 126/70 Code: 8480-6 BMI: 19.1 Code: 04998-7 Heart Rate 1: 88 bpm Height: 5'4" Respiratory Rate: 20 bpm Temperature: 37 .1 (C) / 98.8 (F) Weight: 111 lbs 04/25/2013 Blood Pressure 1: 114/68 Code: 8480-6 BMI: 19.4 Code: 07620-6 Heart Rate 1: 92 bpm Height: 5'4" Respiratory Rate: 24 bpm SpO2: 96% Tempera ture: 37.7 (C) / 99.8 (F) Weight: 113 lbs 03/08/2013 Blood Pressure 1: 94/68 Code: 8480-6 BMI: 21.3 C ode: 78298-0 Heart Rate 1: 88 bpm Height: 5'4" Respiratory Rate: 24 bpm Temperature: 37 .0 (C) / 98.6 (F) Weight: 124 lbs 02/07/2013 Blood Pressure 1: 106/64 Code: 8480-6 BMI: 21.8 Code: 86969-8 Heart Rate 1: 84 bpm Height: 5'4" Respiratory Rate: 22 bpm Temperature: 36 .8 (C) / 98.2 (F) Weight: 127 lbs 01/10/2013 Blood Pressure 1: 122/68 Code: 8480-6 BMI: 21.6 Code: 50899-3 Heart Rate 1: 94 bpm Height: 5'4" SpO2: 94% Temperature: 36.7 (C) / 98.1 (F) Weight: 126 lbs 09/28/2012 Blood Pressure 1: 124/78 Code: 8480-6 BMI: 24.9 Code: 61216-2 Heart Rate 1: 92 bpm Height: 5'4" Respiratory Rate: 20 bpm Temperature: 36 .7 (C) / 98.1 (F) Weight: 145 lbs 06/28/2012 Blood Pressure 1: 134/80 Code: 8480-6 BMI: 24.9 Code: 97877-2 Heart Rate 1: 76 bpm Height: 5'4" Respiratory Rate: 20 bpm Temperature: 36 .8 (C) / 98.2 (F) Weight: 145 lbs 05/03/2012 Blood Pressure 1: 108/62 Code: 8480-6 BMI: 25.6 Code: 44735-2 Heart Rate 1: 88 bpm Height: 5'4" Temperature: 36.2 (C) / 97.2 (F) Weight: 149 lbs 03/01/2012 Blood Pressure 1: 124/66 Code: 8480-6 BMI: 25.1 Code: 73842-6 Heart Rate 1: 76 bpm Height: 5'4" Respiratory Rate: 20 bpm Temperature: 36 .6 (C) / 97.9 (F) Weight: 146 lbs 01/26/2012 Blood Pressure 1: 118/82 Code: 8480-6 BMI: 25.1 Code: 65722-2 Heart Rate 1: 74 bpm Height: 5'4" Temperature: 36.8 (C) / 98.2 (F) Weight: 146 lbs 11/03/2011 Blood Pressure 1: 126/80 Code: 8480-6 BMI: 27.3 Code: 45392-1 Heart Rate 1: 72 bpm Height: 5'4" [...] prozac Encounters Encounter Performer Location Codes Date ([id number]) OFFICE/OUTPATIENT VISIT EST Diagnosis: Chronic pain syndrome[ICD10: G89.4] Diagnosis: Localized edema[ICD10: R60.0] Diagnosis: Chronic obstructive pulmonary disease, unspecified[ICD10: J44.9] Diagnosis: Other fatigue[ICD10: R53.83] Diagnosis: Muscle weakness (generalized)[ICD10: M62.81] Diagnosis: Spinal stenosis, lumbar region with neurogenic claudication[ICD10: M48.062] Vika RENTERIA [employer] CPT-4: 28895 11/29/2019 ([id number]) OFFICE/OUTPATIENT VISIT EST Diagnosis: Chronic pain syndrome[ICD10: G89.4] Diagnosis: Lumbar degenerative disc disease[ICD10: M51.36] Diagnosis: Muscle spasm[ICD10: M62.838] Diagnosis: Spinal stenosis, lumbar region with neurogenic claudication[ICD10: M48.062] Diagnosis: Spondylosis without myelopathy or radiculopathy, 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] Vika RENTERIA [employer] CPT-4: 62176 10/30/2019 ([id number]) OFFICE/OUTPATIENT VISIT EST Diagnosis: Chronic pain syndrome[ICD10: G89.4] Vika RENTERIA [employer] CPT-4: 25060 10/25/2019 ([id number])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
--- OUTSIDE RECORDS SUMMARY | 2020-04-24 22:59 | XMS REPORT | CCD ---
Author Author Yana Renteria D.O. 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 Role Phone Vika Renteria D.O., PP Unavailable CCM Unavailable Summary Purpose Interface Exchange Insurance Providers Payer name Policy type / Coverage type Covered democrat ID Effective Begin Date Effective End Date [employer] [facility] [place] Medicaid [id number] 2018 U nknown Family History Family History data not found Social History Social History Element Codes Description Effective Dates Marital status Unknown 06/28/[address]: 54861286 Currently smokes tobacco 05/2013 Allergies, Adverse Reactions, [...] Fill Instructions cyclobenzaprine 10 mg tablet RxNorm: 858616 TAKE ONE TA BLET BY MOUTH THREE TIMES A DAY NEEDED 01/31/2020 No Stop Date Active Premarin 0.45 mg tablet RxNorm: 332852 TAKE ONE TABLET BY MOUTH DAILY 01/31/2020 No Stop Date Active metformin 500 mg tablet RxNorm: 946774 1 Tablet(s) Oral QD 01/31/20 20 04/29/2020 Active gabapentin 300 mg capsule RxNorm: 292418 TAKE ONE CAPSULE BY [facility] TWICE A DAY 01/16/2020 No Stop Date Active potassium chloride ER 20 mEq tablet,extended release RxNorm: 216452 TAKE ONE TABLET BY MOUTH DAILY 01/08/2020 07/05/2020 Active ProAir HFA 90 mcg/actuation aerosol inhaler RxNorm: 759389 INHALE ONE PUFF BY MOUTH EVERY 4 HOURS FOR WHEEZING OR FOR SHORTNESS OF BREATH 01/04/2020 No Stop Date Active metformin 500 mg tablet RxNorm: 085043 1 Tablet(s) Oral QD 01/04/20 20 01/30/2020 Inactive MS Contin 200 mg tablet,extended release RxNorm: 775480 1 Tablet(s) Oral two times a day 01/02/2020 01/31/2020 Inactive Pulmicort 1 mg/2 mL suspension for nebulization RxNorm: 6168 19 USE ONE VIAL VIA NEBULIZER BY MOUTH TWICE A DAY 12/21/2019 No Stop Date Active furosemide 40 mg tablet RxNorm: 778965 TAKE ONE TABLET BY MOUTH EVERY MORNING NEEDED 12/20/2019 No Stop Date Active levothyroxine 25 mcg tablet RxNorm: 491780 TAKE ONE TAB LET BY MOUTH EVERY MORNING 12/20/2019 No Stop Date Active MS Contin 200 mg tablet,extended release RxNorm: 293595 1 Tablet(s) Oral two times a day 12/05/2019 01/01/2020 Inactive Medrol (Aníbal) 4 mg tablets in a dose pack RxNorm: 397815 6 Tablet(s) Oral QD --then as directed 11/30/2019 12/05/2019 Inactive MS Contin 200 mg tablet,extended release RxNorm: 679918 1 Tablet(s) Oral two times a day 11/29/2019 12/04/2019 Inactive cyclobenzaprine 10 mg tablet RxNorm: 257336 TAKE ONE TA BLET BY MOUTH THREE TIMES A DAY NEEDED 11/21/2019 01/30/2020 Inactive MS Contin 200 mg tablet,extended release RxNorm: 198067 1 Tablet(s) Oral two times a day replaces 100mg dose 11/03/2019 11/02/2019 Inactive MS Contin 200 mg tablet,extended release RxNorm: 472996 1 Tablet(s) Oral two times a day replaces 100mg dose 11/03/2019 11/29/2019 Inactive ferrous sulfate 325 mg (65 mg iron) tablet RxNorm: 926599 1 Tab let(s) Oral QD 10/30/2019 No Stop Date Active MS Contin 100 mg tablet,extended release RxNorm: 372434 1 Table t(s) Oral QD 10/30/2019 10/29/2019 Inactive MS Contin 100 mg tablet,extended release RxNorm: 263827 1 Table t(s) Oral QD 10/30/2019 11/02/2019 Inactive Relistor 150 mg tablet RxNorm: 9595306 TAKE THREE TABLETS BY [facility] DAILY 10/25/2019 No Stop Date Active pantoprazole 40 mg tablet,delayed release RxNorm: 162927 1 Tabl et(s) Oral QD 10/25/2019 No Stop Date Active Minipress 2 mg capsule RxNorm: 101637 1 Capsule(s) Oral QAM and 3 at bedtime 10/25/2019 No Stop Date Active Lancets, Super Thin RxNorm: 1 Unit Dose Miscellaneous QD 9 11/27/2020 Active Cymbalta 60 mg capsule,delayed release RxNorm: 303255 1 Capsule (s) Oral QAM 10/25/2019 No Stop Date Active Cymbalta 30 mg capsule,delayed release RxNorm: 474692 1 Capsule (s) Oral QAM 10/25/2019 No Stop Date Active oxycodone 15 mg tablet RxNorm: 1549422 1 Tablet(s) Oral four times a day as needed for pain 10/25/2019 11/28/2019 Inactive metformin 500 mg tablet RxNorm: 799177 1 Tablet(s) Oral QD 10/25/20 19 01/03/2020 Inactive levothyroxine 25 mcg tablet RxNorm: 687554 1 Tablet(s) Oral QAM 02/201912/19/2019 Inactive levothyroxine 25 mcg tablet RxNorm: 697682 1 Tablet(s) Oral QAM 02/201910/24/2019 Inactive MS Contin 100 mg tablet,extended release RxNorm: 009385 1 Tablet(s) Oral two times a day replaces fentanyl 10/25/2019 10/25/2019 Inactive Premarin 0.45 mg tablet RxNorm: 627374 TAKE ONE TABLET BY MOUTH DAILY 10/24/2019 01/30/2020 Inactive Duragesic 100 mcg/hr transdermal patch RxNorm: 277941 2 Application TD Q48H for pain 10/18/2019 10/24/2019 Inactive gabapentin 300 mg capsule RxNorm: 323545 TAKE ONE CAPSULE BY MO [facility] TWICE A DAY 10/16/2019 01/15/2020 Inactive cyclobenzaprine 10 mg tablet RxNorm: 391855 TAKE ONE TA BLET BY MOUTH THREE TIMES A DAY NEEDED 09/27/2019 11/20/2019 Inactive Relistor 150 mg tablet RxNorm: 6577647 TAKE THREE TABLETS BY [facility] DAILY 09/25/2019 10/24/2019 Inactive ProAir HFA 90 mcg/actuation aerosol inhaler RxNorm: 058391 INHALE ONE PUFF BY MOUTH EVERY 4 HOURS FOR WHEEZING OR FOR SHORTNESS OF BREATH 09/25/2019 01/03/2020 Inactive furosemide 40 mg tablet RxNorm: 231076 1 Tablet(s) Oral QAM as needed 09/25/2019 09/25/2019 Inactive oxycodone 15 mg tablet RxNorm: 6506105 1 Tablet(s) PO QID as nee ded for pain 09/21/2019 10/24/2019 Inactive Duragesic 100 mcg/hr transdermal patch RxNorm: 765835 2 Application TD Q48H for pain 09/19/2019 10/17/2019 Inactive Daliresp 500 mcg tablet RxNorm: 2356631 1 Tablet(s) Oral QD 019 03/08/2020 Active Relistor 150 mg tablet RxNorm: 3312749 TAKE THREE TABLETS BY [facility] DAILY 07/25/2019 07/30/2019 Inactive cyclobenzaprine 10 mg tablet RxNorm: 015089 TAKE ONE TA BLET BY MOUTH THREE TIMES A DAY NEEDED 07/25/2019 09/22/2019 Inactive potassium chloride ER 20 mEq tablet,extended release RxNorm: 611120 TAKE ONE TABLET BY MOUTH DAILY 07/25/2019 01/07/2020 Inactive fluoxetine 40 mg capsule RxNorm: 005170 TAKE ONE CAPSULE BY [facility] EVERY MORNING 07/11/2019 10/24/2019 Inactive Medrol (Aníbal) 4 mg tablets in a dose pack RxNorm: 751051 6 Tablet(s) PO QD --then as directed 07/10/2019 07/15/2019 Inactive omeprazole 40 mg capsule,delayed release RxNorm: 700985 1 Capsule(s) PO QD for stomach TAKE ONE CAPSULE BY MOUTH DAILY 07/10/2019 10/24/2019 Inactive Augmentin 875 mg-125 mg tablet RxNorm: 830091 1 Tablet(s) PO BID 07/16/2019 Inactive Trulicity 0.75 mg/0.5 mL subcutaneous pen injector RxNorm: 1 152405 0.75 Milliliter(s) SQ weekly 07/05/2019 10/24/2019 Inactive Compazine 10 mg tablet RxNorm: 265555 TAKE ONE TABLET B Y MOUTH FOUR TIMES A DAY NEEDED FOR NAUSEA 06/20/2019 07/19/2019 Inactive ProAir HFA 90 mcg/actuation aerosol inhaler RxNorm: 419833 INHALE ONE PUFF BY MOUTH EVERY 4 HOURS FOR WHEEZING OR FOR SHORTNESS OF BREATH 06/20/2019 06/23/2019 Inactive Daliresp 500 mcg tablet RxNorm: 1862946 TAKE ONE TABLET BY MOUTH DAILY 06/12/2019 09/10/2019 Inactive ruycijgt-pzoubjiku-qifamuzwt 3.5 mg/mL-10,000 unit/mL- 1 % ear solution RxNorm: 139602 4 Drop(s) otic (ear) TID to left ear 06/05/2019 10/24/2019 Inac tive furosemide 40 mg tablet RxNorm: 332692 TAKE ONE TABLET BY MOUTH EVERY MORNING 05/26/2019 07/09/2019 Inactive Duragesic 100 mcg/hr transdermal patch RxNorm: 460120 2 Application TD Q48H for pain 05/16/2019 06/14/2019 Inactive oxycodone 15 mg tablet RxNorm: 9133929 1 Tablet(s) PO QID as nee ded for pain 05/10/2019 09/20/2019 Inactive doxycycline hyclate 100 mg capsule RxNorm: 8885938 1 Capsule(s) PO BID 05/03/2019 05/12/2019 Inactive prednisone 20 mg tablet RxNorm: 080807 1 Tablet(s) PO T ID for 3 days then 1 po BID for 3 days then one daily for 3 days 05/03/2019 07/11/2019 Inactiv e Ozempic 0.25 mg or 0.5 mg (2 mg/1.5 mL) subcutaneous p en injector RxNorm: 1664197 0.5 Milligram(s) SQ QW 05/03/2019 07/09/2019 Inactive fluconazole 100 mg tablet RxNorm: 298689 1 Tablet(s) PO QD 05/03/2005/07/2019 Inactive Premarin 0.45 mg tablet RxNorm: 061660 TAKE ONE TABLET BY MOUTH DAILY 05/03/2019 10/23/2019 Inactive potassium chloride ER 20 mEq tablet,extended release RxNorm: 674800 1 Tablet(s) PO QD 04/27/2019 07/25/2019 Inactive potassium chloride ER 20 mEq tablet,extended release RxNorm: 569200 1 Tablet(s) PO QD 04/25/2019 04/26/2019 Inactive Compazine 10 mg tablet RxNorm: 446849 1 Tablet(s) PO QID as nee ded for nausea 04/25/2019 05/04/2019 Inactive ProAir HFA 90 mcg/actuation aerosol inhaler RxNorm: 986397 INHALE ONE PUFF BY MOUTH EVERY 4 HOURS FOR WHEEZING OR FOR SHORTNESS OF BREATH 04/12/2019 06/10/2019 Inactive Medrol (Aníbal) 4 mg tablets in a dose pack RxNorm: 576094 6 Tablet(s) PO QD --then as directed 04/11/2019 04/16/2019 Inactive Symbicort 160 mcg-4.5 mcg/actuation HFA aerosol inhaler RxNo rm: 9909244 2 Puff(s) INH BID 04/10/2019 10/06/2019 Inactive levothyroxine 50 mcg tablet RxNorm: 126777 1 Tablet(s) PO QD 201810/24/2019 Inactive gabapentin 300 mg capsule RxNorm: 790857 1 Capsule(s) PO BID 201810/02/2019 Inactive Symbicort 160 mcg-4.5 mcg/actuation HFA aerosol inhaler RxNo rm: 7246685 2 Puff(s) INH BID 04/06/2019 04/09/2019 Inactive oxycodone 15 mg tablet RxNorm: 4415067 1 Tablet(s) PO QID as nee ded for pain 04/05/2019 05/09/2019 Inactive levothyroxine 50 mcg tablet RxNorm: 658023 1 Tablet(s) PO QD 201804/09/2019 Inactive furosemide 40 mg tablet RxNorm: 025701 TAKE ONE TABLET BY MOUTH EVERY MORNING 03/21/2019 04/19/2019 Inactive levothyroxine 50 mcg tablet RxNorm: 935313 TAKE ONE TABLET BY M OUTH DAILY 03/21/2019 03/27/2019 Inactive Duragesic 100 mcg/hr transdermal patch RxNorm: 112664 2 Application TD Q48H for pain 03/13/2019 04/11/2019 Inactive oxycodone 15 mg tablet RxNorm: 2772455 1 Tablet(s) PO QID as nee ded for pain 03/06/2019 04/04/2019 Inactive Relistor 150 mg tablet RxNorm: 4926465 3 Tablet(s) PO QD 02/28/2019 0 05/28/2019 Inactive cyclobenzaprine 10 mg tablet RxNorm: 686693 1 Tablet(s) PO TID as needed 02/28/2019 05/28/2019 Inactive phentermine 37.5 mg tablet RxNorm: 927216 1 Tablet(s) PO QAM 201803/15/2019 Inactive Duragesic 100 mcg/hr transdermal patch RxNorm: 359651 2 Application TD Q48H for pain 02/09/2019 03/10/2019 Inactive Daliresp 500 mcg tablet RxNorm: 3570754 TAKE ONE TABLET BY MOUTH DAILY 01/31/2019 05/30/2019 Inactive Premarin 0.45 mg tablet RxNorm: 363108 1 Tablet(s) PO QD 01/31/2019 0 04/30/2019 Inactive fluoxetine 40 mg capsule RxNorm: 411434 Capsule(s) TAKE ONE CAPSULE BY MOUTH EVERY MORNING 01/31/2019 04/30/2019 Inactive levothyroxine 50 mcg tablet RxNorm: 892803 1 Tablet(s) PO QD 201804/10/2019 Inactive follow up in 3 weeks levothyroxine 50 mcg tablet RxNorm: 273224 1 Tablet(s) PO QD 201801/25/2019 Inactive follow up in 3 weeks potassium chloride ER 20 mEq tablet,extended release RxNorm: 982559 2 Tablet(s) PO BID 01/23/2019 01/08/2020 Inactive Synthroid 50 mcg tablet RxNorm: 110267 TAKE ONE TABLET BY MOUTH DAILY 01/16/2019 10/24/2019 Inactive potassium chloride ER 20 mEq tablet,extended release RxNorm: 713408 2 Tablet(s) PO BID 01/04/2019 01/22/2019 Inactive ProAir HFA 90 mcg/actuation aerosol inhaler RxNorm: 216939 INHALE ONE PUFF BY MOUTH EVERY 4 HOURS FOR WHEEZING OR SHORTNESS OF BREATH 01/04/201902/20 Inactive Request already responded to by other me ans (e.g. phone or fax) ProAir HFA 90 mcg/actuation aerosol inhaler RxNorm: 4033639 INHALE ONE PUFF BY MOUTH EVERY 4 HOURS FOR WHEEZING OR SHORTNESS OF BREATH 01/02/201912/23 Inactive gabapentin 300 mg capsule RxNorm: 254288 TAKE ONE CAPSULE BY [facility] TWICE A DAY 12/30/2018 04/06/2019 Inactive furosemide 40 mg tablet RxNorm: 556186 1 Tablet(s) PO QAM 12/26/2018 02/23/2019 Inactive Compazine 10 mg tablet RxNorm: 568458 1 Tablet(s) PO QID as nee ded for nausea 12/07/2018 12/16/2018 Inactive metformin ER 500 mg tablet,extended release 24 hr RxNorm: 86 0975 TAKE ONE TABLET BY MOUTH DAILY 12/05/2018 01/31/2020 Inactive metolazone 2.5 mg tablet RxNorm: 818573 TAKE ONE TABLET BY MOUT H EVERY MORNING 12/05/2018 01/03/2019 Inactive Synthroid 50 mcg tablet RxNorm: 935010 1 Tablet(s) PO QD 11/25/2018 0 01/03/2019 Inactive DC any other synthroid strengths. Should be 50mcg only cyclobenzaprine 10 mg tablet RxNorm: 423097 TAKE ONE TA BLET BY MOUTH THREE TIMES A DAY NEEDED 11/09/2018 02/06/2019 Inactive metolazone 2.5 mg tablet RxNorm: 487034 1 Tablet(s) PO QAM repl aces 5mg dose 11/02/2018 12/01/2018 Inactive potassium chloride ER 20 mEq tablet,extended release RxNorm: 282739 2 Tablet(s) PO QD 2018 01/02/2019 Inactive Compazine 10 mg tablet RxNorm: 423070 1 Tablet(s) PO QID as nee ded for nausea 10/18/2018 12/07/2018 Inactive furosemide 40 mg tablet RxNorm: 249037 1 Tablet(s) PO QAM 10/12/2018 12/10/2018 Inactive ondansetron 8 mg disintegrating tablet RxNorm: 039843 1 Tablet(s) PO Q6H as needed 10/11/2018 10/17/2018 Inactive scopolamine 1 mg over 3 days transdermal patch RxNorm: 83170 2 1 Application TD behind ear. Take off after three days 10/11/2018 01/02/2019 Inactive furosemide 40 mg tablet RxNorm: 436958 1 Tablet(s) PO QAM 10/10/2018 12/26/2018 Inactive metolazone 5 mg tablet RxNorm: 902727 1 Tablet(s) PO QAM 10/06/2018 1 01/03/2018 Inactive metolazone 5 mg tablet RxNorm: 099754 1 Tablet(s) PO QAM 10/06/2018 1 12/05/2017 Inactive Xtampza ER 36 mg capsule sprinkle RxNorm: 8890672 1 Capsule(s) P O BID 10/05/2018 01/02/2019 Inactive Xtampza ER 36 mg capsule sprinkle RxNorm: 9675952 1 Capsule(s) P O BID 10/05/2018 02/12/2019 Inactive omeprazole 40 mg capsule,delayed release RxNorm: 589110 TAKE ONE CAPSULE BY MOUTH DAILY 10/03/2018 12/31/2018 Inactive Duragesic 100 mcg/hr transdermal patch RxNorm: 772693 2 Application TD Q48H for pain 09/30/2018 10/29/2018 Inactive Synthroid 50 mcg tablet RxNorm: 841912 1 Tablet(s) PO QD 09/29/2018 0 11/25/2018 Inactive DC any other synthroid strengths. Should be 50mcg only Synthroid 50 mcg tablet RxNorm: 679604 1 Tablet(s) PO QD 09/29/2018 1 11/28/2017 Inactive furosemide 40 mg tablet RxNorm: 121407 2 Tablet(s) PO Q AM for 1 week then every other day for 2 weeks 09/27/2018 10/12/2018 Inactive fluoxetine 40 mg capsule RxNorm: 600871 2 Capsule(s) PO QD 09/27/20 18 10/17/2018 Inactive potassium chloride ER 20 mEq tablet,extended release RxNorm: 280605 2 Tablet(s) PO QD for 1 week then every other day for 2 weeks 09/27/2018 2018 Inactive ProAir HFA 90 mcg/actuation aerosol inhaler RxNorm: 4780831 INHALE ONE PUFF BY MOUTH EVERY 4 HOURS FOR WHEEZING OR SHORTNESS OF BREATH 09/26/201811/23 Inactive Synthroid 75 mcg tablet RxNorm: 579320 1 Tablet(s) PO QD 09/09/2018 1 Inactive Synthroid 75 mcg tablet RxNorm: 671297 1 Tablet(s) PO QD 09/09/201811/28/2017 Inactive furosemide 40 mg tablet RxNorm: 730930 1 Tablet(s) PO QD 09/06/2018 1 Inactive potassium chloride ER 20 mEq tablet,extended release RxNorm: 931834 1 Tablet(s) PO QD 09/06/2018 09/19/2018 Inactive Duragesic 100 mcg/hr transdermal patch RxNorm: 275110 2 Application TD Q48H for pain 08/30/2018 09/28/2018 Inactive gabapentin 300 mg capsule RxNorm: 785442 TAKE ONE CAPSULE BY [facility] TWICE A DAY 08/23/2018 12/20/2018 Inactive Daliresp 500 mcg tablet RxNorm: 7786973 TAKE ONE TABLET BY MOUTH DAILY 08/23/2018 01/19/2019 Inactive Pulmicort 1 mg/2 mL suspension for nebulization RxNorm: 6168 19 USE ONE VIAL VIA NEBULIZER BY MOUTH TWICE A DAY 08/23/2018 07/11/2019 Inactive Synthroid 88 mcg tablet RxNorm: 925492 1 Tablet(s) PO QD 08/19/2018 1 Inactive Medrol (Aníbal) 4 mg tablets in a dose pack RxNorm: 992076 Tablet(s) PO take as directed 08/16/2018 09/05/2018 Inactive Relistor 150 mg tablet RxNorm: 2137235 3 Tablet(s) PO QD 08/16/2018 1 Inactive Zithromax Z-Aníbal 250 mg tablet RxNorm: 495599 Tablet(s) PO take as directed 08/16/2018 09/05/2018 Inactive cyclobenzaprine 10 mg tablet RxNorm: 493189 1 Tablet(s) PO TID as needed 08/16/2018 11/08/2018 Inactive Synthroid 88 mcg tablet RxNorm: 264627 1 Tablet(s) PO Q D NEEDS UPDATED LABS BEFORE FURTHER REFILLS 08/08/2018 08/19/2018 Inactive Premarin 0.45 mg tablet RxNorm: 790152 1 Tablet(s) PO QD 08/03/2018 0 01/31/2019 Inactive fluoxetine 20 mg capsule RxNorm: 817230 TAKE ONE CAPSULE BY [facility] TH DAILY 08/03/2018 09/26/2018 Inactive Xtampza ER 36 mg capsule sprinkle RxNorm: 3558952 1 Capsule(s) P O BID 08/03/2018 09/01/2018 Inactive metformin ER 500 mg tablet,extended release 24 hr RxNorm: 86 0975 1 Tablet(s) PO QD 08/03/2018 10/31/2018 Inactive Symbicort 160 mcg-4.5 mcg/actuation HFA aerosol inhaler RxNo rm: 5368447 2 Puff(s) INH BID 08/03/2018 01/29/2019 Inactive Duragesic 100 mcg/hr transdermal patch RxNorm: 602313 2 Application TD Q48H for pain 07/29/2018 08/27/2018 Inactive ProAir HFA 90 mcg/actuation aerosol inhaler RxNorm: 201952 INHALE TWO PUFFS BY MOUTH EVERY 4 HOURS FOR WHEEZING OR SHORTNESS OF BREATH 07/27/201802/2018 Inactive Relistor 150 mg tablet RxNorm: 2655548 3 Tablet(s) PO QD 07/20/2018 0 08/15/2018 Inactive metformin ER 500 mg tablet,extended release 24 hr RxNorm: 86 0975 TAKE ONE TABLET BY MOUTH DAILY 07/08/2018 08/02/2018 Inactive fluoxetine 40 mg capsule RxNorm: 755820 TAKE ONE CAPSULE BY [facility] TH EVERY MORNING 07/08/2018 10/05/2018 Inactive Xtampza ER 18 mg capsule sprinkle RxNorm: 3320442 1 Capsule(s) P O BID 07/08/2018 08/02/2018 Inactive Relistor 150 mg tablet RxNorm: 8860277 3 Tablet(s) PO QD 07/08/2018 0 07/12/2018 Inactive Synthroid 88 mcg tablet RxNorm: 498477 1 Tablet(s) PO Q D NEEDS UPDATED LABS BEFORE FURTHER REFILLS 06/23/2018 07/07/2018 Inactive fluoxetine 40 mg capsule RxNorm: 748305 TAKE ONE CAPSULE BY BENO[facility] TH EVERY MORNING 06/15/2018 09/26/2018 Inactive orphenadrine citrate ER 100 mg tablet,extended release RxNor m: 259344 TAKE ONE TABLET BY MOUTH TWICE A DAY FOR MUSCLE SPASM 06/15/2018 08/15/2018 [place] [facility] Duragesic 100 mcg/hr transdermal patch RxNorm: 159373 2 Application TD Q48H for pain 05/30/2018 06/28/2018 Inactive ProAir HFA 90 mcg/actuation aerosol inhaler RxNorm: 799031 INHALE TWO PUFFS BY MOUTH EVERY 4 HOURS FOR WHEEZING OR SHORTNESS OF BREATH 05/19/201803/2018 Inactive Chantix Continuing Month Box 1 mg tablet RxNorm: 574243 TAKE ONE TABLET BY MOUTH TWICE A DAY 05/19/2018 08/15/2018 Inactive oxycodone 10 mg tablet RxNorm: 2540653 1-2 Tablet(s) PO QID as n eeded for pain 05/19/2018 07/07/2018 Inactive gabapentin 300 mg capsule RxNorm: 743514 TAKE ONE CAPSULE BY MO UTH TWICE A DAY 05/18/2018 07/16/2018 Inactive ProAir HFA 90 mcg/actuation aerosol inhaler RxNorm: 120323 INHALE TWO PUFFS BY MOUTH EVERY 4 HOURS FOR WHEEZING OR SHORTNESS OF BREATH 05/04/201804/23 Inactive Augmentin 500 mg-125 mg tablet RxNorm: 495604 1 Tablet(s) PO BID 05/03/2018 Inactive oxycodone 10 mg tablet RxNorm: 0761551 1-2 Tablet(s) PO QID as n eeded for pain 04/21/2018 05/18/2018 Inactive Synthroid 88 mcg tablet RxNorm: 071627 1 Tablet(s) PO QD 04/15/2018 0 08/08/2018 Inactive Symbicort 160 mcg-4.5 mcg/actuation HFA aerosol inhaler RxNo rm: 5017956 2 Puff(s) INH BID 04/15/2018 04/10/2019 Inactive Premarin 0.45 mg tablet RxNorm: 563020 1 Tablet(s) PO QD 04/15/2018 0 08/03/2018 Inactive ProAir HFA 90 mcg/actuation aerosol inhaler RxNorm: 149028 2 Puff(s) INH Q4H prn for wheezing or shortness of breath 04/15/2018 05/03/2018 Inactive metformin ER 500 mg tablet,extended release 24 hr RxNorm: 86 0975 1 Tablet(s) PO QD 04/11/2018 07/07/2018 Inactive omeprazole 40 mg capsule,delayed release RxNorm: 913522 TAKE ONE CAPSULE BY MOUTH DAILY 04/10/2018 06/08/2018 Inactive Synthroid 88 mcg tablet RxNorm: 641092 1 Tablet(s) PO QD 04/04/2018 0 04/14/2018 Inactive Synthroid 88 mcg tablet RxNorm: 199324 1 Tablet(s) PO QD 04/04/2018 0 04/03/2018 Inactive orphenadrine citrate ER 100 mg tablet,extended release RxNor m: 111593 1 Tablet(s) PO BID for muscle spasm 04/04/2018 05/03/2018 Inactive metformin ER 500 mg tablet,extended release 24 hr RxNorm: 86 0975 1 Tablet(s) PO QD NEEDS UPDATED LABS 03/31/2018 04/11/2018 Inactive doxycycline hyclate 100 mg capsule RxNorm: 5378876 1 Capsule(s) PO BID 03/31/2018 04/09/2018 Inactive prednisone 20 mg tablet RxNorm: 296382 3 Tablet(s) PO T ID for 3 days then 1 po BID for 3 days then one daily for 3 days 03/31/2018 07/06/2018 Inactiv e Chantix Continuing Month Box 1 mg tablet RxNorm: 020584 TAKE ONE TABLET BY MOUTH TWICE A DAY 03/25/2018 03/30/2018 Inactive oxycodone 10 mg tablet RxNorm: 8619645 1-2 Tablet(s) PO QID as n eeded for pain 03/21/2018 04/20/2018 Inactive Daliresp 500 mcg tablet RxNorm: 2343080 1 Tablet(s) PO QD 03/15/2018 08/22/2018 Inactive metformin ER 500 mg tablet,extended release 24 hr RxNorm: 86 0975 1 Tablet(s) PO QD NEEDS UPDATED LABS 03/14/2018 03/31/2018 Inactive nystatin 100,000 unit/mL oral suspension RxNorm: 036584 5 Chio liter(s) PO QID 03/02/2018 03/15/2018 Inactive nystatin 100,000 unit/mL oral suspension RxNorm: 316759 5 Chio liter(s) PO QID 03/02/2018 03/01/2018 Inactive oxycodone 10 mg tablet RxNorm: 7731623 1-2 Tablet(s) PO QID as n eeded for pain 02/16/2018 03/20/2018 Inactive fluoxetine 20 mg capsule RxNorm: 293180 1 Capsule(s) PO QD 02/15/20 18 08/02/2018 Inactive metformin ER 500 mg tablet,extended release 24 hr RxNorm: 86 0975 1 Tablet(s) PO QD Needs updated labs 02/14/2018 03/14/2018 Inactive cefdinir 300 mg capsule RxNorm: 184710 1 Capsule(s) PO BID 01/27/20 18 02/04/2018 Inactive orphenadrine citrate ER 100 mg tablet,extended release RxNor m: 801239 1 Tablet(s) PO BID for muscle spasm 01/26/2018 04/04/2018 Inactive gabapentin 300 mg capsule RxNorm: 868115 1 Capsule(s) PO BID 201704/17/2018 Inactive oxycodone 10 mg tablet RxNorm: 0325519 1-2 Tablet(s) PO QID as n eeded for pain 01/17/2018 02/15/2018 Inactive Duragesic 100 mcg/hr transdermal patch RxNorm: 891752 2 Application TD Q48H for pain 01/17/2018 02/15/2018 Inactive gabapentin 300 mg capsule RxNorm: 449910 TAKE ONE CAPSULE BY MO UTH TWICE A DAY 12/20/2017 01/18/2018 Inactive fluoxetine 40 mg capsule RxNorm: 645999 TAKE ONE CAPSULE BY BENOIT TH EVERY MORNING 12/15/2017 03/14/2018 Inactive OneTouch Ultra Test strips RxNorm: TEST DAILY 11/04/2017 02/01/2018 Inactive gabapentin 300 mg capsule RxNorm: 303491 1 Capsule(s) P O TID replaces BID dosing 10/26/2017 02/22/2018 Inactive oxycodone 10 mg tablet RxNorm: 7839192 1-2 Tablet(s) PO QID as n eeded for pain 10/18/2017 01/16/2018 Inactive Duragesic 100 mcg/hr transdermal patch RxNorm: 071572 2 Application TD Q48H for pain 10/18/2017 11/16/2017 Inactive gabapentin 300 mg capsule RxNorm: 555658 1 Capsule(s) PO BID 201610/25/2017 Inactive Abilify 5 mg tablet RxNorm: 097820 1 Tablet(s) PO QAM 09/23/201702/2017 Inactive gabapentin 300 mg capsule RxNorm: 790928 1 Capsule(s) PO BID 201610/17/2017 Inactive oxycodone 10 mg tablet RxNorm: 5191319 1-2 Tablet(s) PO QID as n eeded for pain 09/15/2017 10/17/2017 Inactive Duragesic 100 mcg/hr transdermal patch RxNorm: 686271 2 Application TD Q48H for pain 09/15/2017 10/14/2017 Inactive Duragesic 100 mcg/hr transdermal patch RxNorm: 209598 2 Application TD Q48H for pain 09/15/2017 10/24/2019 Inactive oxycodone 10 mg tablet RxNorm: 5255109 1-2 Tablet(s) PO QID as n eeded for pain 09/15/2017 08/15/2018 Inactive Daliresp 500 mcg tablet RxNorm: 8610323 1 Tablet(s) PO QD 09/06/2017 03/15/2018 Inactive Ventolin HFA 90 mcg/actuation aerosol inhaler RxNorm: 574545 2 Puff(s) INH Q4H as needed 09/02/2017 05/19/2018 Inactive oxycodone 10 mg tablet RxNorm: 4103029 1-2 Tablet(s) PO QID as n eeded for pain 08/17/2017 09/14/2017 Inactive Duragesic 100 mcg/hr transdermal patch RxNorm: 743923 2 Application TD Q48H for pain 08/17/2017 09/14/2017 Inactive fluoxetine 40 mg capsule RxNorm: 007209 Capsule(s) TAKE ONE CAPSULE BY MOUTH EVERY MORNING 08/17/2017 12/14/2017 Inactive Pulmicort 1 mg/2 mL suspension for nebulization RxNorm: 6168 19 1 Unit Dose INH BID Dx: COPD (J44.9) 08/16/2017 08/22/2018 Inactive gabapentin 300 mg capsule RxNorm: 827251 1 Capsule(s) PO QHS 201610/18/2017 Inactive fluoxetine 20 mg capsule RxNorm: 185587 1 Capsule(s) PO QD 08/12/20 17 02/14/2018 Inactive Abilify 2 mg tablet RxNorm: 058879 1 Tablet(s) PO QD TA KE ONE TABLET BY MOUTH DAILY 08/12/2017 10/25/2017 Inactive metformin ER 500 mg tablet,extended release 24 hr RxNorm: 86 0975 1 Tablet(s) PO QD 08/10/2017 02/14/2018 Inactive Synthroid 112 mcg tablet RxNorm: 065555 1 Tablet(s) PO QD 08/10/2017 04/15/2018 Inactive oxycodone 10 mg tablet RxNorm: 1033618 1-2 Tablet(s) PO QID as n eeded for pain 07/19/2017 08/16/2017 Inactive Duragesic 100 mcg/hr transdermal patch RxNorm: 059983 2 Application TD Q48H for pain 07/19/2017 08/16/2017 Inactive Ventolin HFA 90 mcg/actuation aerosol inhaler RxNorm: 828424 2 Puff(s) INH Q4H as needed 07/12/2017 09/02/2017 Inactive Abilify 2 mg tablet RxNorm: 395481 1 Tablet(s) PO QD TA KE ONE TABLET BY MOUTH DAILY 07/06/2017 08/11/2017 Inactive gabapentin 800 mg tablet RxNorm: 551686 1 Tablet(s) PO TID 06/22/20 17 07/05/2017 Inactive Chantix Starting Month Box 0.5 mg (11)-1 mg (42) table ts in dose pack RxNorm: 154084 TAKE BY MOUTH INSTRUCTED - PER PACKAGE INSTRUCTIONS 06/0707/04/2017 Inactive Ventolin HFA 90 mcg/actuation aerosol inhaler RxNorm: 720302 2 Puff(s) INH Q4H as needed 05/26/2017 07/12/2017 Inactive Duragesic 100 mcg/hr transdermal patch RxNorm: 437199 2 Application TD Q48H for pain 05/19/2017 06/17/2017 Inactive oxycodone 10 mg tablet RxNorm: 3426974 1-2 Tablet(s) PO QID as n eeded for pain 05/19/2017 07/18/2017 Inactive Abilify 2 mg tablet RxNorm: 616417 TAKE ONE TABLET BY MOUTH DAILY 0 05/10/2017 07/05/2017 Inactive Synthroid 112 mcg tablet RxNorm: 165353 1 Tablet(s) PO QD 05/06/2017 08/10/2017 Inactive metformin ER 500 mg tablet,extended release 24 hr RxNorm: 86 0975 1 Tablet(s) PO QD 05/06/2017 08/10/2017 Inactive Topamax 100 mg tablet RxNorm: 712662 1 Tablet(s) PO QHS 05/06/2017 Inactive Premarin 0.45 mg tablet RxNorm: 688959 1 Tablet(s) PO QD 05/06/2017 0 04/15/2018 Inactive orphenadrine citrate ER 100 mg tablet,extended release RxNor m: 999760 1 Tablet(s) PO TID for muscle spasm--replaces methocarbamol 04/29/2017 Inactive oxycodone 10 mg tablet RxNorm: 1267499 1-2 Tablet(s) PO QID as n eeded for pain 04/21/2017 05/18/2017 Inactive Duragesic 100 mcg/hr transdermal patch RxNorm: 794004 2 Application TD Q48H for pain 04/21/2017 05/18/2017 Inactive fluoxetine 40 mg capsule RxNorm: 316554 Capsule(s) TAKE ONE CAPSULE BY MOUTH EVERY MORNING 04/20/2017 08/17/2017 Inactive Ventolin HFA 90 mcg/actuation aerosol inhaler RxNorm: 181017 2 Puff(s) INH Q4H as needed 04/05/2017 05/26/2017 Inactive Symbicort 160 mcg-4.5 mcg/actuation HFA aerosol inhaler RxNo rm: 4417176 2 Puff(s) INH BID 03/30/2017 04/15/2018 Inactive Spiriva with HandiHaler 18 mcg and inhalation capsules RxNor m: 510062 1 Capsule(s) INH QD USING HANDIHALER 03/30/2017 02/12/2019 Inactive Duragesic 100 mcg/hr transdermal patch RxNorm: 236917 2 Application TD Q48H for pain 03/18/2017 04/16/2017 Inactive oxycodone 10 mg tablet RxNorm: 2492008 1-2 Tablet(s) PO QID as n eeded for pain 03/18/2017 04/20/2017 Inactive metformin ER 500 mg tablet,extended release 24 hr RxNorm: 86 0975 Tablet(s) TAKE ONE TABLET BY MOUTH DAILY 03/01/2017 05/06/2017 Inactive Premarin 0.45 mg tablet RxNorm: 817181 Tablet(s) TAKE ONE TABLE T BY MOUTH DAILY 03/01/2017 05/06/2017 Inactive Synthroid 112 mcg tablet RxNorm: 662383 Tablet(s) TAKE ONE TABLET BY MOUTH DAILY 03/01/2017 05/06/2017 Inactive Daliresp 500 mcg tablet RxNorm: 8283904 1 Tablet(s) PO QD 03/01/2017 09/06/2017 Inactive 16.2 mg-0.1037 mg-0.0194 mg tablet RxNorm: 2288771 Tablet(s) PO PRN for gas and cramping 02/23/2017 04/28/2017 Inactive TAKE TWO TABLET S BY MOUTH THREE TIMES A DAY NEEDED FOR GAS AND CRAMPING gabapentin 800 mg tablet RxNorm: 521877 1 Tablet(s) PO TID repl aces 600mg 02/23/2017 04/28/2017 Inactive Duragesic 100 mcg/hr transdermal patch RxNorm: 358451 2 Application TD Q48H for pain 02/17/2017 03/17/2017 Inactive fluoxetine 20 mg capsule RxNorm: 551667 1 Capsule(s) PO QD 02/18/20 17 08/12/2017 Inactive oxycodone 20 mg tablet RxNorm: 2212686 1 Tablet(s) PO QID as nee ded for pain 02/17/2017 03/17/2017 Inactive Ventolin HFA 90 mcg/actuation aerosol inhaler RxNorm: 378353 INHALE TWO PUFFS BY MOUTH EVERY 4 HOURS NEEDED 02/15/2017 04/05/2017 Inactive Silvadene 1 % topical cream RxNorm: 501668 1 Application TOP BI D to burn area 02/01/2017 09/22/2017 Inactive Topamax 100 mg tablet RxNorm: 809491 TAKE ONE TABLET BY MOUTH EVERY NIGHT AT BEDTIME 01/29/2017 05/06/2017 Inactive Chantix Starting Month Box 0.5 mg (11)-1 mg (42) table ts in dose pack RxNorm: 369191 Tablet(s) PO as directed 01/29/2017 06/01/2017 Inactive Abilify 2 mg tablet RxNorm: 743467 TAKE ONE TABLET BY MOUTH DAILY 0 01/26/2017 04/25/2017 Inactive Chantix Starting Month Box 0.5 mg (11)-1 mg (42) table ts in dose pack RxNorm: 301671 Tablet(s) PO as directed 01/20/2017 01/28/2017 Inactive gabapentin 600 mg tablet RxNorm: 252840 1 Tablet(s) PO TID 01/21/20 17 02/22/2017 Inactive Chantix Continuing Month Box 1 mg tablet RxNorm: 467430 1 Table t(s) PO BID 12/31/2016 06/01/2017 Inactive Spiriva with HandiHaler 18 mcg and inhalation capsules RxNor m: 371916 INHALE THE ENTIRE CONTENTS OF 1 CAPSULE ONCE A DAY USING HANDIHALER 12/31/201607/2017 Inactive Synthroid 112 mcg tablet RxNorm: 237059 TAKE ONE TABLET BY MOUT H DAILY 12/30/2016 03/01/2017 Inactive metformin ER 500 mg tablet,extended release 24 hr RxNorm: 86 0975 TAKE ONE TABLET BY MOUTH DAILY 12/30/2016 03/01/2017 Inactive Premarin 0.45 mg tablet RxNorm: 330282 TAKE ONE TABLET BY MOUTH DAILY 12/30/2016 03/01/2017 Inactive omeprazole 40 mg capsule,delayed release RxNorm: 230824 TAKE ONE CAPSULE BY MOUTH DAILY 12/30/2016 01/25/2018 Inactive Ventolin HFA 90 mcg/actuation aerosol inhaler RxNorm: 956721 INHALE TWO PUFFS BY MOUTH EVERY 4 HOURS NEEDED 12/28/2016 02/13/2017 Inactive fluoxetine 40 mg capsule RxNorm: 426144 TAKE ONE CAPSULE BY BENOIT TH EVERY MORNING 12/15/2016 04/20/2017 Inactive Chantix Continuing Month Box 1 mg tablet RxNorm: 457740 TAKE ONE TABLET BY MOUTH TWICE A DAY 12/04/2016 12/31/2016 Inactive doxycycline hyclate 100 mg capsule RxNorm: 1615728 1 Capsule(s) PO BID 12/01/2016 12/07/2016 Inactive Levaquin 750 mg tablet RxNorm: 204629 1 Tablet(s) PO QD 12/01/2016 Inactive Abilify 2 mg tablet RxNorm: 236171 TAKE ONE TABLET BY MOUTH DAILY 0 11/25/2016 11/30/2016 Inactive Ventolin HFA 90 mcg/actuation aerosol inhaler RxNorm: 475365 INHALE TWO PUFFS BY MOUTH EVERY 4 HOURS NEEDED 11/02/2016 12/19/2016 Inactive Chantix Continuing Month Box 1 mg tablet RxNorm: 230790 Tablet(s) PO as directed 10/30/2016 12/03/2016 Inactive Symbicort 160 mcg-4.5 mcg/actuation HFA aerosol inhaler RxNo rm: 8330564 INHALE TWO PUFFS TWO TIMES A DAY 10/30/2016 03/30/2017 Inactive Abilify 2 mg tablet RxNorm: 759442 1 Tablet(s) PO QD 10/27/201611/24 Inactive amoxicillin 500 mg capsule RxNorm: 885502 1 Capsule(s) PO TID 10/1410/23/2016 Inactive amoxicillin 500 mg capsule RxNorm: 132115 1 Capsule(s) PO TID 10/1410/13/2016 Inactive Synthroid 112 mcg tablet RxNorm: 959950 TAKE ONE TABLET BY MOUT H DAILY 09/28/2016 12/29/2016 Inactive Topamax 100 mg tablet RxNorm: 962299 TAKE ONE TABLET BY MOUTH EVERY NIGHT AT BEDTIME 09/28/2016 01/28/2017 Inactive Premarin 0.45 mg tablet RxNorm: 143710 TAKE ONE TABLET BY MOUTH DAILY 09/28/2016 12/29/2016 Inactive metformin ER 500 mg tablet,extended release 24 hr RxNorm: 86 0975 TAKE ONE TABLET BY MOUTH DAILY 09/28/2016 12/29/2016 Inactive Ventolin HFA 90 mcg/actuation aerosol inhaler RxNorm: 205523 INHALE TWO PUFFS BY MOUTH EVERY 4 HOURS NEEDED 09/22/2016 10/23/2016 Inactive Pulmicort 1 mg/2 mL suspension for nebulization RxNorm: 6168 19 1 Unit Dose INH BID Dx: COPD (J44.9) 09/10/2016 08/16/2017 Inactive Pulmicort 1 mg/2 mL suspension for nebulization RxNorm: 6168 19 1 Unit Dose INH BID 09/10/2016 09/09/2016 Inactive Brovana 15 mcg/2 mL solution for nebulization RxNorm: 215194 1 Unit Dose INH BID Dx: COPD (J44.9) 09/10/2016 01/25/2018 Inactive Brovana 15 mcg/2 mL solution for nebulization RxNorm: 003793 1 Unit Dose INH BID 09/10/2016 09/09/2016 Inactive ipratropium-albuterol 0.5 mg-3 mg(2.5 mg base)/3 mL ne bulization soln RxNorm: 9033834 1 Unit Dose INH Q4H as needed Dx: COPD (J44.9) 09/10/2016 0 02/12/2019 Inactive orphenadrine citrate ER 100 mg tablet,extended release RxNor m: 965155 1 Tablet(s) PO BID for muscle spasm--replaces methocarbamol 09/09/2016 Inactive Chantix Continuing Month Box 1 mg tablet RxNorm: 062110 Tablet(s) PO as directed 09/09/2016 10/30/2016 Inactive orphenadrine citrate ER 100 mg tablet,extended release RxNor m: 237203 1 Tablet(s) PO BID for muscle spasm 09/09/2016 09/08/2016 Inactive Spiriva with HandiHaler 18 mcg and inhalation capsules RxNor m: 271119 INHALE THE ENTIRE CONTENTS OF 1 CAPSULE ONCE A DAY USING HANDIHALER 09/01/201605/2017 Inactive Daliresp 500 mcg tablet RxNorm: 5334095 1 Tablet(s) PO QD 08/27/2016 03/01/2017 Inactive prednisone 20 mg tablet RxNorm: 205062 3 Tablet(s) PO T ID for 3 days then 1 po BID for 3 days then one daily for 3 days 08/26/2016 04/28/2017 Inactiv e Wellbutrin XL 300 mg 24 hr tablet, extended release RxNorm: 242871 TAKE ONE TABLET BY MOUTH EVERY MORNING 07/29/2016 10/26/2016 Inactive gabapentin 600 mg tablet RxNorm: 601629 1 Tablet(s) PO BID 06/26/20 16 12/22/2016 Inactive fluoxetine 40 mg capsule RxNorm: 257967 TAKE ONE CAPSULE BY BENOIT TH EVERY MORNING 06/24/2016 11/20/2016 Inactive Duragesic 100 mcg/hr transdermal patch RxNorm: 061895 2 Application TD Q48H for pain 06/05/2016 07/04/2016 Inactive oxycodone 10 mg tablet RxNorm: 3929508 1-2 Tablet(s) PO QID as n eeded for pain 06/05/2016 03/17/2017 Inactive Belladonna-Phenobarbital 48 mg tablet,extended release RxNor m: 2 Tablet(s) PO TID 06/05/2016 01/19/2017 Inactive Premarin 0.45 mg tablet RxNorm: 552293 TAKE ONE TABLET BY MOUTH DAILY 05/27/2016 09/23/2016 Inactive Topamax 100 mg tablet RxNorm: 326400 TAKE ONE TABLET BY MOUTH EVERY NIGHT AT BEDTIME 05/27/2016 09/27/2016 Inactive Synthroid 112 mcg tablet RxNorm: 457619 TAKE ONE TABLET BY MOUT H DAILY 05/27/2016 09/23/2016 Inactive metformin ER 500 mg tablet,extended release 24 hr RxNorm: 86 0975 TAKE ONE TABLET BY MOUTH DAILY 05/27/2016 09/23/2016 Inactive Symbicort 160 mcg-4.5 mcg/actuation HFA aerosol inhaler RxNo rm: 0844937 INHALE TWO PUFFS TWO TIMES A DAY 05/27/2016 10/23/2016 Inactive Ventolin HFA 90 mcg/actuation aerosol inhaler RxNorm: 988743 INHALE TWO PUFFS BY MOUTH EVERY 4 HOURS NEEDED 05/21/2016 07/07/2016 Inactive omeprazole 40 mg capsule,delayed release RxNorm: 831814 1 Capsu le(s) PO QD 05/06/2016 08/03/2016 Inactive metformin ER 500 mg tablet,extended release 24 hr RxNorm: 86 0975 TAKE ONE TABLET BY MOUTH DAILY 04/23/2016 05/22/2016 Inactive methocarbamol 750 mg tablet RxNorm: 978223 2 Tablet(s) PO TID as needed for muscle spasm 04/23/2016 09/08/2016 Inactive Synthroid 112 mcg tablet RxNorm: 482971 TAKE ONE TABLET BY MOUT H DAILY 04/23/2016 05/22/2016 Inactive Spiriva with HandiHaler 18 mcg and inhalation capsules RxNor m: 303981 INHALE THE ENTIRE CONTENTS OF 1 CAPSULE ONCE A DAY USING HANDIHALER 04/09/201608/2016 Inactive Diflucan 100 mg tablet RxNorm: 786357 1 Tablet(s) PO QD 04/08/2016 Inactive doxycycline hyclate 100 mg capsule RxNorm: 7571642 1 Capsule(s) PO BID 04/08/2016 04/17/2016 Inactive doxycycline hyclate 100 mg capsule RxNorm: 4944138 1 Capsule(s) PO BID 04/08/2016 04/07/2016 Inactive Diflucan 100 mg tablet RxNorm: 889123 1 Tablet(s) PO QD 04/08/2016 Inactive ondansetron HCl 4 mg tablet RxNorm: 722225 1 Tablet(s) PO Q4H as needed for nausea and vomiting 04/08/2016 09/22/2017 Inactive gabapentin 600 mg tablet RxNorm: 025793 TAKE ONE TABLET BY MOUT H TWICE A DAY 03/24/2016 06/25/2016 Inactive Synthroid 112 mcg tablet RxNorm: 284525 TAKE ONE TABLET BY MOUT H DAILY 02/25/2016 04/22/2016 Inactive Levaquin 500 mg tablet RxNorm: 915142 1 Tablet(s) PO QD 01/23/2016 Inactive prednisone 20 mg tablet RxNorm: 726882 1 Tablet(s) PO T ID for 3 days then 1 po BID for 3 days then one daily for 3 days 01/23/2016 08/25/2016 Inactiv e O&P Pro Ultra Test strips RxNorm: TEST BLOOD SUGAR ONCE DAILY 250.00 01/09/2016 11/04/2017 Inactive methocarbamol 750 mg tablet RxNorm: 530009 2 Tablet(s) PO TID as needed for muscle spasm 01/09/2016 04/23/2016 Inactive lactulose 10 gram/15 mL oral solution RxNorm: 101083 [address](s) PO QD 01/09/2016 09/22/2017 Inactive TAKE 1 TABLESPOON BY MOUTH ONCE DAILY metformin ER 500 mg tablet,extended release 24 hr RxNorm: 86 0975 1 Tablet(s) PO QD 12/26/2015 04/22/2016 Inactive fluoxetine 20 mg capsule RxNorm: 838099 1 Capsule(s) PO QD 12/23/19 16 06/19/2016 Inactive Premarin 0.45 mg tablet RxNorm: 170956 TAKE ONE TABLET BY MOUTH DAILY 12/23/2015 05/20/2016 Inactive fluoxetine 40 mg capsule RxNorm: 637374 1 Capsule(s) PO QD 12/23/19 16 06/19/2016 Inactive TAKE ONE CAPSULE BY MOUTH EV JANKI MORNING azithromycin 500 mg tablet RxNorm: 463400 1 Tablet(s) PO QD 016 12/19/2015 Inactive Zofran 4 mg tablet RxNorm: 321990 1 Tablet(s) PO Q4H prn nausea /vomiting 12/13/2015 03/30/2018 Inactive azithromycin 500 mg tablet RxNorm: 905200 1 Tablet(s) PO QD 016 12/12/2015 Inactive Duragesic 100 mcg/hr transdermal patch RxNorm: 673996 2 Application TD Q48H for pain 12/09/2015 01/07/2016 Inactive oxycodone 10 mg tablet RxNorm: 6819668 1-2 Tablet(s) PO QID as n eeded for pain 12/09/2015 06/04/2016 Inactive Bactroban 2 % topical cream RxNorm: 667640 Application TOP BID 11/2208/25/2016 Inactive doxycycline hyclate 100 mg capsule RxNorm: 1922020 1 Capsule(s) PO BID 12/03/2015 12/12/2015 Inactive Topamax 100 mg tablet RxNorm: 792853 TAKE ONE TABLET BY MOUTH EVERY NIGHT AT BEDTIME 11/25/2015 05/22/2016 Inactive Symbicort 160 mcg-4.5 mcg/actuation HFA aerosol inhaler RxNo rm: 4579273 INHALE TWO PUFFS TWO TIMES A DAY 11/25/2015 05/22/2016 Inactive Synthroid 112 mcg tablet RxNorm: 329402 Tablet(s) TAKE ONE TABLET BY MOUTH DAILY 11/25/2015 02/22/2016 Inactive omeprazole 40 mg capsule,delayed release RxNorm: 733831 1 Capsu le(s) PO QD 11/12/2015 05/05/2016 Inactive oxycodone 10 mg tablet RxNorm: 3015279 1-2 Tablet(s) PO QID as n eeded for pain 11/05/2015 12/08/2015 Inactive Duragesic 100 mcg/hr transdermal patch RxNorm: 150679 2 Application TD Q48H for pain 11/05/2015 12/04/2015 Inactive omeprazole 40 mg capsule,delayed release RxNorm: 369312 1 Capsu le(s) PO QD 10/07/2015 11/11/2015 Inactive Januvia 100 mg tablet RxNorm: 050225 TAKE ONE TABLET BY MOUTH DAILY 09/11/2015 12/25/2015 Inactive Zithromax 500 mg tablet RxNorm: 946053 1 Tablet(s) PO QD 09/10/2015 1 Inactive prednisone 20 mg tablet RxNorm: 953223 1 Tablet(s) PO T ID for 3 days then 1 po BID for 3 days then one daily for 3 days 09/10/2015 08/25/2016 Inactiv e Wellbutrin XL 300 mg 24 hr tablet, extended release RxNorm: 572781 1 Tablet(s) PO QAM 09/10/2015 12/02/2015 Inactive Topamax 100 mg tablet RxNorm: 461366 TAKE ONE TABLET BY MOUTH EVERY NIGHT AT BEDTIME 09/02/2015 11/24/2015 Inactive Synthroid 112 mcg tablet RxNorm: 736728 TAKE ONE TABLET BY MOUT H DAILY 09/02/2015 11/25/2015 Inactive methocarbamol 750 mg tablet RxNorm: 221098 2 Tablet(s) PO TID as needed for muscle spasm 08/15/2015 01/09/2016 Inactive Wellbutrin XL 150 mg 24 hr tablet, extended release RxNorm: 708460 TAKE ONE TABLET BY MOUTH EVERY MORNING 08/13/2015 08/13/2015 Inactive gabapentin 600 mg tablet RxNorm: 013801 1 Tablet(s) PO BID 08/13/20 15 02/08/2016 Inactive Wellbutrin XL 300 mg 24 hr tablet, extended release RxNorm: 878705 1 Tablet(s) PO QAM 08/06/2015 09/09/2015 Inactive Wellbutrin XL 150 mg 24 hr tablet, extended release RxNorm: 154498 1 Tablet(s) PO QAM 07/18/2015 08/05/2015 Inactive prednisone 20 mg tablet RxNorm: 681798 1 Tablet(s) PO BID 07/18/2015 07/22/2015 Inactive doxycycline hyclate 100 mg tablet,delayed release RxNorm: 43 4018 1 Tablet(s) PO BID 07/18/2015 07/27/2015 Inactive pravastatin 40 mg tablet RxNorm: 743711 1 Tablet(s) PO QD NEEDS FASTING LAB 07/15/2015 07/14/2015 Inactive pravastatin 40 mg tablet RxNorm: 041598 1 Tablet(s) PO QD NEEDS FASTING LAB 07/15/2015 01/25/2018 Inactive Ventolin HFA 90 mcg/actuation aerosol inhaler RxNorm: 108591 2 Puff(s) INH Q4H 07/08/2015 07/07/2015 Inactive prn Premarin 0.45 mg tablet RxNorm: 368298 1 Tablet(s) PO QD 07/01/2015 0 12/22/2015 Inactive pravastatin 40 mg tablet RxNorm: 425961 1 Tablet(s) PO QD NEEDS FASTING LAB 06/14/2015 07/15/2015 Inactive Ventolin HFA 90 mcg/actuation aerosol inhaler RxNorm: 5019691 2 Puff(s) INH Q4H 06/06/2015 07/08/2015 Inactive prn albuterol sulfate 2.5 mg/3 mL (0.083 %) solution for n ebulization RxNorm: 693763 1 Unit Dose INH QID 05/30/2015 No Stop Date Active Duragesic 100 mcg/hr transdermal patch RxNorm: 221075 2 Application TD Q48H for pain 04/29/2015 05/28/2015 Inactive gabapentin 600 mg tablet RxNorm: 283878 1 Tablet(s) PO BID 04/11/20 15 08/13/2015 Inactive Onglyza 5 mg tablet RxNorm: 515505 1 Tablet(s) PO QD for blood suga r 04/10/2015 04/15/2015 Inactive [Brand Copay Card: RxBIN:[id number] PCN:CN RxGRP:[id number] ID#:[id number]] methocarbamol 750 mg tablet RxNorm: 884888 2 Tablet(s) PO TID as needed for muscle spasm 03/28/2015 08/15/2015 Inactive pravastatin 40 mg tablet RxNorm: 187675 1 Tablet(s) PO QD 03/19/2015 03/18/2015 Inactive pravastatin 40 mg tablet RxNorm: 997855 1 Tablet(s) PO QD 03/19/2015 06/14/2015 Inactive lactulose 10 gram/15 mL oral solution RxNorm: 223726 [address]s) PO QD 03/07/2015 01/09/2016 Inactive TAKE 1 TABLESPOON BY MOUTH ONCE DAILY oxycodone 20 mg tablet RxNorm: 1817848 1 Tablet(s) PO QID as nee ded for pain 03/05/2015 07/08/2015 Inactive Topamax 100 mg tablet RxNorm: 620090 1 Tablet(s) PO QHS TAKE ONE TABLET BY MOUTH AT BEDTIME 02/25/2015 02/12/2019 Inactive metformin ER 500 mg tablet,extended release 24 hr RxNorm: 86 0975 1 Tablet(s) PO QD 02/11/2015 03/04/2015 Inactive take one tablet by mouth every day Daliresp 500 mcg tablet RxNorm: 6796006 1 Tablet(s) PO QD 02/11/2015 08/09/2015 Inactive Endocet 10 mg-325 mg tablet RxNorm: 3251430 1 Tablet(s) PO Q4H as needed for pain 01/23/2015 01/23/2015 Inactive gabapentin 600 mg tablet RxNorm: 845604 1 Tablet(s) PO BID 01/23/20 15 04/11/2015 Inactive methocarbamol 750 mg tablet RxNorm: 515870 2 Tablet(s) PO TID as needed for muscle spasm 01/15/2015 02/13/2015 Inactive fluoxetine 40 mg capsule RxNorm: 004357 1 Capsule(s) PO QD 01/14/20 15 12/23/2015 Inactive TAKE ONE CAPSULE BY MOUTH EV JANKI MORNING fluoxetine 20 mg capsule RxNorm: 954769 1 Capsule(s) PO QD 01/14/20 15 12/23/2015 Inactive Premarin 0.45 mg tablet RxNorm: 208280 1 Tablet(s) PO QD 01/02/2015 0 07/01/2015 Inactive Endocet 10 mg-325 mg tablet RxNorm: 9165433 1-2 Tablet(s) PO Q4H 02/12/2019 Inactive PRN PAIN Duragesic 100 mcg/hr transdermal patch RxNorm: 544473 2 Application TD Q48H for pain 12/25/2014 01/23/2015 Inactive Topamax 100 mg tablet RxNorm: 569677 1 Tablet(s) PO QHS TAKE ONE TABLET BY MOUTH AT BEDTIME 12/25/2014 02/24/2015 Inactive Tudorza Pressair 400 mcg/actuation breath activated RxNorm: 1813823 1 BID INHALE ONE PUFF INTO LUNGS TWO TIMES A DAY 12/17/2014 05/15/2015 Inactive Endocet 10 mg-325 mg tablet RxNorm: 9231209 1-2 Tablet(s) PO Q4H 12/19/2014 Inactive PRN PAIN Duragesic 100 mcg/hr transdermal patch RxNorm: 383497 2 Application TD Q48H for pain 11/20/2014 12/24/2014 Inactive OneTouch Ultra Test strips RxNorm: TEST BLOOD SUGAR ONCE DAILY 250.00 11/16/2014 01/08/2016 Inactive omeprazole 40 mg capsule,delayed release RxNorm: 948049 1 Capsu le(s) PO QD 11/13/2014 11/12/2015 Inactive metformin ER 500 mg tablet,extended release 24 hr RxNorm: 86 0975 1 Tablet(s) PO QD 11/12/2014 02/11/2015 Inactive take one tablet by mouth every day Symbicort 160 mcg-4.5 mcg/actuation HFA aerosol inhaler RxNo rm: 8494702 2 Puff(s) INH BID 11/12/2014 03/11/2015 Inactive INHALE 2 PUFFS O RALLY TWO TIMES A DAY gabapentin 800 mg tablet RxNorm: 546189 1 Tablet(s) PO QD TAKE ONE TABLET BY MOUTH ONCE A DAY 10/22/2014 01/01/2015 Inactive Endocet 10 mg-325 mg tablet RxNorm: 6822352 1-2 Tablet(s) PO Q4H 11/15/2014 Inactive PRN PAIN Duragesic 100 mcg/hr transdermal patch RxNorm: 957200 2 Application TD Q48H for pain 10/17/2014 11/19/2014 Inactive gabapentin 800 mg tablet RxNorm: 800178 1 Tablet(s) PO QD TAKE ONE TABLET BY MOUTH ONCE A DAY 10/04/2014 10/21/2014 Inactive Premarin 0.9 mg tablet RxNorm: 350969 1 Tablet(s) PO QD TAKE ONE TABLET BY MOUTH ONCE A DAY 10/04/2014 01/01/2015 Inactive Spiriva with HandiHaler 18 mcg & inhalation capsules RxNorm: 201302 1 Capsule(s) INH QD 10/03/2014 04/30/2015 Inactive Levaquin 500 mg tablet RxNorm: 796977 1 Tablet(s) PO QD 10/03/2014 Inactive prednisone 20 mg tablet RxNorm: 373876 1 Tablet(s) PO QD 10/03/2014 1 12/09/2013 Inactive Duragesic 100 mcg/hr transdermal patch RxNorm: 056238 2 Application TD Q48H for pain 09/18/2014 10/16/2014 Inactive Endocet 10 mg-325 mg tablet RxNorm: 0752595 1-2 Tablet(s) PO Q4H 10/16/2014 Inactive PRN PAIN Synthroid 112 mcg tablet RxNorm: 733815 1 Tablet(s) QD 09/10/2014 Inactive Synthroid 112 mcg tablet RxNorm: 802348 TAKE ONE TABLET BY MOUTH ONE TIME A DAY. NEEDS LABS 09/10/2014 02/06/2015 Inactive omeprazole 40 mg capsule,delayed release RxNorm: 066102 1 Capsu le(s) PO QD 09/03/2014 11/13/2014 Inactive omeprazole 40 mg capsule,delayed release RxNorm: 574286 1 Capsu le(s) PO QD 09/03/2014 09/02/2014 Inactive Spiriva with HandiHaler 18 mcg & inhalation capsules RxNorm: 404225 1 Capsule(s) INH QD 08/27/2014 10/02/2014 Inactive gabapentin 600 mg tablet RxNorm: 059510 1 Tablet(s) PO BID 08/27/20 14 10/22/2014 Inactive Endocet 10 mg-325 mg tablet RxNorm: 4856584 1-2 Tablet(s) PO Q4H 09/17/2014 Inactive PRN PAIN fentanyl 100 mcg/hr transdermal patch RxNorm: 025333 1 Unit Dos e TD QD 08/21/2014 09/19/2014 Inactive Daliresp 500 mcg tablet RxNorm: 0991645 1 Tablet(s) PO QD 08/13/2014 02/11/2015 Inactive Synthroid 112 mcg tablet RxNorm: 626444 TAKE ONE TABLET BY MOUTH ONE TIME A DAY. NEEDS LABS 08/10/2014 09/10/2014 Inactive Endocet 10 mg-325 mg tablet RxNorm: 7524825 1-2 Tablet(s) PO Q4H 08/17/2014 Inactive PRN PAIN Duragesic 100 mcg/hr transdermal patch RxNorm: 938022 2 Application TD Q48H for pain 07/19/2014 09/17/2014 Inactive fluoxetine 40 mg capsule RxNorm: 336782 1 Capsule(s) PO QD 07/17/20 14 01/14/2015 Inactive TAKE ONE CAPSULE BY MOUTH EV JANKI MORNING fluoxetine 20 mg capsule RxNorm: 228786 1 Capsule(s) PO QD 07/17/20 14 01/14/2015 Inactive Spiriva with HandiHaler 18 mcg & inhalation capsules RxNorm: 158548 1 Capsule(s) INH QD 07/17/2014 08/26/2014 Inactive INHALE CONTENTS OF 1 CAPSULE(S) WITH HANDIHALER ONCE DAILY Zofran 4 mg tablet RxNorm: 374602 1 Tablet(s) PO Q4H prn nausea 07/25/2014 Inactive Synthroid 112 mcg tablet RxNorm: 239121 1 Tablet(s) PO QD 07/09/2014 07/09/2014 Inactive methocarbamol 750 mg tablet RxNorm: 622721 2 Tablet(s) PO TID as needed for muscle spasm 07/09/2014 09/06/2014 Inactive Synthroid 112 mcg tablet RxNorm: 925596 1 Tablet(s) PO QD - se[facility] labs 07/09/2014 08/07/2014 Inactive Medrol (Aníbal) 4 mg tablets in a dose pack RxNorm: 094183 6 Tablet(s) PO QD --then as directed 07/03/2014 07/08/2014 Inactive Tudorza Pressair 400 mcg/actuation breath activated RxNorm: 2247485 1 Puff(s) INH BID 07/03/2014 12/17/2014 Inactive cefdinir 300 mg capsule RxNorm: 843654 1 Capsule(s) PO BID 07/03/20 14 07/12/2014 Inactive Topamax 100 mg tablet RxNorm: 074140 Tablet(s) TAKE ONE TABLET BY MOUTH AT BEDTIME 07/02/2014 02/25/2015 Inactive Duragesic 100 mcg/hr transdermal patch RxNorm: 657237 2 Application TD Q48H for pain 06/25/2014 07/18/2014 Inactive Endocet 10 mg-325 mg tablet RxNorm: 0413189 1-2 Tablet(s) PO Q4H 07/18/2014 Inactive PRN PAIN metformin ER 500 mg tablet,extended release 24 hr RxNorm: 86 0975 1 Tablet(s) PO QD Needs labs 06/18/2014 07/01/2014 Inactive take one tablet by mouth every day Duragesic 100 mcg/hr transdermal patch RxNorm: 388785 2 Application TD Q48H for pain 05/22/2014 06/24/2014 Inactive Synthroid 112 mcg tablet RxNorm: 662328 1 Tablet(s) PO QD 05/22/2014 07/09/2014 Inactive Endocet 10 mg-325 mg tablet RxNorm: 9049933 1-2 Tablet(s) PO Q4H 06/20/2014 Inactive PRN PAIN Endocet 10 mg-325 mg tablet RxNorm: 5026219 1-2 Tablet(s) PO Q4H 05/21/2014 Inactive PRN PAIN Duragesic 100 mcg/hr transdermal patch RxNorm: 625961 2 Application TD Q48H for pain 04/25/2014 05/21/2014 Inactive Daliresp 500 mcg tablet RxNorm: 8802505 1 Tablet(s) PO QD 04/24/2014 08/13/2014 Inactive Symbicort 160 mcg-4.5 mcg/actuation HFA aerosol inhaler RxNo rm: 5414823 2 Puff(s) INH BID 04/24/2014 08/21/2014 Inactive INHALE 2 PUFFS O RALLY TWO TIMES A DAY metformin ER 500 mg tablet,extended release 24 hr RxNorm: 86 0975 1 Tablet(s) PO QD 04/24/2014 11/12/2014 Inactive TAKE ONE TABLET BY MOUTH EVERY DAY [AttnRPh:Saving Apply/Adjudicate RxGRP:LDMGRP RxBIN:[id number] RxPCN:2012 PCode:01 ID#:[id number]] Symbicort 160 mcg-4.5 mcg/actuation HFA aerosol inhaler RxNo rm: [id number] 2 Puff(s) INH BID 04/24/2014 11/12/2014 Inactive INHALE 2 PUFFS O RALLY TWO TIMES A DAY Premarin 0.9 mg tablet RxNorm: 131137 1 Tablet(s) PO QD 04/24/2014 Inactive TAKE ONE TABLET BY MOUTH EVERY DAY metformin ER 500 mg tablet,extended release 24 hr RxNorm: 86 0975 1 Tablet(s) PO QD Needs labs 04/24/2014 06/18/2014 Inactive TAKE ONE TABLET BY MOUTH EVERY DAY [AttnRPh:Saving Apply/Adjudicate RxGRP:LDMGRP RxBIN:[id number] RxPCN:2012 PCode:01 ID#:[id number]] gabapentin 800 mg tablet RxNorm: 553015 1 Tablet(s) PO QD 04/24/2014 10/04/2014 Inactive TAKE ONE TABLET BY MOUTH EVERY DAY Topamax 100 mg tablet RxNorm: 447059 1 Tablet(s) PO QHS 04/17/2014 Inactive Topamax 100 mg tablet RxNorm: 048485 TAKE ONE TABLET BY MOUTH A T BEDTIME 04/17/2014 07/01/2014 Inactive Tudorza Pressair 400 mcg/actuation breath activated RxNorm: 1332314 1 Puff(s) INH BID 04/11/2014 07/02/2014 Inactive Duragesic 100 mcg/hr transdermal patch RxNorm: 953418 2 Application TD Q48H for pain 03/27/2014 04/24/2014 Inactive Endocet 10 mg-325 mg tablet RxNorm: 1688453 1-2 Tablet(s) PO Q4H 04/24/2014 Inactive PRN PAIN Robaxin 750 mg tablet RxNorm: 059167 2 Tablet(s) PO TID as need ed for spasm 02/23/2014 03/28/2015 Inactive Duragesic 100 mcg/hr transdermal patch RxNorm: 214562 2 Application TD Q48H for pain 02/23/2014 No Stop Date Active Endocet 10 mg-325 mg tablet RxNorm: 6667140 1-2 Tablet(s) PO Q4H 03/23/2014 Inactive PRN PAIN Synthroid 112 mcg tablet RxNorm: 788945 1 Tablet(s) PO QD TAKE ONE TABLET BY MOUTH EVERY DAY 02/15/2014 05/22/2014 Inactive Zithromax 500 mg tablet RxNorm: 189336 1 Tablet(s) PO QD 01/30/2014 0 02/05/2014 Inactive Diflucan 100 mg tablet RxNorm: 807463 1 Tablet(s) PO QD 01/30/2014 Inactive prednisone 20 mg tablet RxNorm: 145780 1 Tablet(s) PO BID 01/30/2014 02/05/2014 Inactive fluoxetine 40 mg capsule RxNorm: 196591 1 Capsule(s) PO QD 01/23/20 14 07/16/2014 Inactive TAKE ONE CAPSULE BY MOUTH EV JANKI MORNING fluoxetine 40 mg capsule RxNorm: 495731 1 Capsule(s) PO QD 01/23/20 14 07/17/2014 Inactive TAKE ONE CAPSULE BY MOUTH EV JANKI MORNING cefdinir 300 mg capsule RxNorm: 429976 1 Capsule(s) PO BID 01/16/20 14 01/29/2014 Inactive Zithromax 500 mg tablet RxNorm: 281446 1 Tablet(s) PO QD 01/16/2014 0 01/22/2014 Inactive prednisone 20 mg tablet RxNorm: 812316 1 Tablet(s) PO BID 01/16/2014 01/22/2014 Inactive Spiriva with HandiHaler 18 mcg and inhalation capsules RxNor m: 146522 1 Capsule(s) INH QD 12/18/2013 07/17/2014 Inactive INHALE CONTENT S OF 1 CAPSULE(S) WITH HANDIHALER ONCE DAILY fluoxetine 20 mg capsule RxNorm: 033042 1 Capsule(s) PO QD 12/18/19 14 06/15/2014 Inactive Spiriva with HandiHaler 18 mcg & inhalation capsules RxNorm: 596779 1 Capsule(s) INH QD 12/18/2013 06/15/2014 Inactive INHALE CONTENTS OF 1 CAPSULE(S) WITH HANDIHALER ONCE DAILY fluoxetine 20 mg capsule RxNorm: 361165 1 Capsule(s) PO QD 12/18/19 14 07/17/2014 Inactive cefdinir 300 mg capsule RxNorm: 283378 2 Capsule(s) PO QD 12/12/2013 12/21/2013 Inactive Duragesic 100 mcg/hr transdermal patch RxNorm: 754994 2 Application TD Q48H for pain 12/08/2013 12/07/2013 Inactive Topamax 100 mg tablet RxNorm: 728411 1 Tablet(s) PO QHS 12/04/2013 Inactive Endocet 10 mg-325 mg tablet RxNorm: 2043017 1-2 Tablet(s) PO Q4H 12/26/2013 Inactive PRN PAIN Robaxin 750 mg tablet RxNorm: 445589 2 Tablet(s) PO TID as need ed for spasm 11/07/2013 01/05/2014 Inactive gabapentin 800 mg tablet RxNorm: 059654 1 Tablet(s) PO QD 10/16/2013 04/24/2014 Inactive TAKE ONE TABLET BY MOUTH EVERY DAY Symbicort 160 mcg-4.5 mcg/actuation HFA aerosol inhaler RxNo rm: 1216547 2 Puff(s) INH BID 10/16/2013 04/24/2014 Inactive INHALE 2 PUFFS O RALLY TWO TIMES A DAY Premarin 0.9 mg tablet RxNorm: 276525 1 Tablet(s) PO QD 10/16/2013 Inactive TAKE ONE TABLET BY MOUTH EVERY DAY metformin ER 500 mg tablet,extended release 24 hr RxNorm: 86 0975 1 Tablet(s) PO QD 10/16/2013 04/24/2014 Inactive TAKE ONE TABLET BY MOUTH EVERY DAY Daliresp 500 mcg tablet RxNorm: 0370766 1 Tablet(s) PO QD 10/16/2013 04/24/2014 Inactive Robaxin 750 mg tablet RxNorm: 180085 2 Tablet(s) PO TID as need ed for spasm 10/10/2013 11/06/2013 Inactive Duragesic 100 mcg/hr transdermal patch RxNorm: 688513 2 Application TD Q48H for pain 10/09/2013 No Stop Date Active Soma 350 mg tablet RxNorm: 116651 1 Tablet(s) PO TID 09/27/201310/09 Inactive TAKE ONE TABLET BY MOUTH THREE TIMES A D AY lactulose 10 gram/15 mL oral solution RxNorm: 926283 [address](s) PO QD 09/13/2013 03/07/2015 Inactive TAKE 1 TABLESPOON BY MOUTH ONCE DAILY Duragesic 100 mcg/hr transdermal patch RxNorm: 240539 2 Application TD Q48H for pain 09/06/2013 No Stop Date Active Endocet 10 mg-325 mg tablet RxNorm: 6177419 1-2 Tablet(s) PO Q4H 09/27/2013 Inactive PRN PAIN lancets 28 gauge RxNorm: Miscellaneous As needed for blo od glucose sticks 08/24/2013 No Stop Date Active 16.2 mg-0.1037 mg-0.0194 mg tablet RxNorm: 5747287 Tablet(s) PO PRN for gas and cramping 08/24/2013 01/19/2017 Inactive TAKE TWO TABLET S BY MOUTH THREE TIMES A DAY NEEDED FOR GAS AND CRAMPING Topamax 100 mg tablet RxNorm: 077248 1 Tablet(s) PO QHS 07/31/2013 Inactive Diflucan 100 mg tablet RxNorm: 797278 1 Tablet(s) PO QD 07/27/2013 Inactive cefdinir 300 mg capsule RxNorm: 827845 1 Capsule(s) PO BID 07/26/20 13 08/08/2013 Inactive Daliresp 500 mcg tablet RxNorm: 1509227 1 Tablet(s) PO QD 07/25/2013 10/15/2013 Inactive fluoxetine 40 mg capsule RxNorm: 197876 1 Capsule(s) PO QD 07/25/20 13 01/22/2014 Inactive TAKE ONE CAPSULE BY MOUTH EV JANKI MORNING Senokot-S 8.6 mg-50 mg tablet RxNorm: 9522286 1 Tablet(s) PO BID 10/25/2013 Inactive doxycycline hyclate 100 mg capsule RxNorm: 0200573 1 Capsule(s) PO BID 06/28/2013 07/07/2013 Inactive prednisone 20 mg tablet RxNorm: 492360 1 Tablet(s) PO BID 06/28/2013 07/04/2013 Inactive Zofran 4 mg tablet RxNorm: 070486 1 Tablet(s) PO Q4H prn nausea 03/201307/05/2013 Inactive Spiriva with HandiHaler 18 mcg & inhalation capsules RxNorm: 775362 1 Capsule(s) INH QD 06/26/2013 12/18/2013 Inactive INHALE CONTENTS OF 1 CAPSULE(S) WITH HANDIHALER ONCE DAILY Synthroid 112 mcg tablet RxNorm: 728722 1 Tablet(s) PO QD TAKE ONE TABLET BY MOUTH EVERY DAY 06/19/2013 02/15/2014 Inactive fluoxetine 20 mg capsule RxNorm: 165003 1 Capsule(s) PO QD 06/19/20 13 12/18/2013 Inactive Ventolin HFA 90 mcg/actuation Aerosol Inhaler RxNorm: 0664901 2 Puff(s) INH Q4H 06/05/2013 No Stop Date Active prn Soma 350 mg tablet RxNorm: 705441 1 Tablet(s) PO TID 06/05/201307/04 Inactive TAKE ONE TABLET BY MOUTH THREE TIMES A D AY prednisone 20 mg tablet RxNorm: 942143 1 Tablet(s) PO QD 05/31/2013 0 06/06/2013 Inactive Topamax 100 mg tablet RxNorm: 896936 1 Tablet(s) PO QHS 05/22/2013 Inactive Levaquin 500 mg tablet RxNorm: 928455 1 Tablet(s) PO QD 05/03/2013 Inactive Diflucan 100 mg tablet RxNorm: 128589 1 Tablet(s) PO QD 05/03/2013 Inactive Daliresp 500 mcg tablet RxNorm: 2451102 1 Tablet(s) PO QD 05/01/2013 07/24/2013 Inactive Daliresp 500 mcg tablet RxNorm: 2653370 1 Tablet(s) PO QD 05/01/2013 04/30/2013 Inactive gabapentin 800 mg tablet RxNorm: 246394 1 Tablet(s) PO QD 04/10/2013 10/06/2013 Inactive TAKE ONE TABLET BY MOUTH EVERY DAY metformin ER 500 mg tablet,extended release 24 hr RxNorm: 86 0977 1 Tablet(s) PO QD 04/10/2013 10/06/2013 Inactive TAKE ONE TABLET BY MOUTH EVERY DAY Premarin 0.9 mg tablet RxNorm: 162683 1 Tablet(s) PO QD 04/10/2013 Inactive TAKE ONE TABLET BY MOUTH EVERY DAY Symbicort 160 mcg-4.5 mcg/actuation HFA aerosol inhaler RxNo rm: 8789880 2 Puff(s) INH BID 04/10/2013 10/06/2013 Inactive INHALE 2 PUFFS O RALLY TWO TIMES A DAY Synthroid 112 mcg tablet RxNorm: 566673 1 Tablet(s) PO QD TAKE ONE TABLET BY MOUTH EVERY DAY 04/10/2013 06/18/2013 Inactive Ventolin HFA 90 mcg/actuation Aerosol Inhaler RxNorm: 055768 2 Puff(s) INH Q4H 04/10/2013 No Stop Date Active prn fentanyl 100 mcg/hr transdermal patch RxNorm: 814241 1 Unit Dos e TD QD 04/03/2013 05/02/2013 Inactive Endocet 10 mg-325 mg tablet RxNorm: 2973879 1-2 Tablet(s) PO Q4H 05/02/2013 Inactive PRN PAIN Topamax 100 mg tablet RxNorm: 325460 1 Tablet(s) PO QHS 03/13/2013 Inactive Reglan 10 mg tablet RxNorm: 785161 1 Tablet(s) PO QID b efore meals and at bedtime 03/13/2013 04/09/2015 Inactive fluoxetine 20 mg capsule RxNorm: 178026 1 Capsule(s) PO QD 02/28/20 13 05/27/2013 Inactive Ventolin HFA 90 mcg/actuation Aerosol Inhaler RxNorm: 426988 2 Puff(s) INH Q4H 02/13/2013 No Stop Date Active prn fluoxetine 40 mg capsule RxNorm: 793278 1 Capsule(s) PO QD 01/31/20 13 07/24/2013 Inactive TAKE ONE CAPSULE BY MOUTH EV JANKI MORNING Soma 350 mg tablet RxNorm: 449490 1 Tablet(s) PO TID 01/20/201302/18 Inactive TAKE ONE TABLET BY MOUTH THREE TIMES A D AY Endocet 10 mg-325 mg tablet RxNorm: 1167321 1-2 Tablet(s) PO Q4H 02/06/2013 Inactive PRN PAIN MS Contin 200 mg tablet,extended release RxNorm: 013171 1 Table t(s) PO BID 01/18/2013 02/06/2013 Inactive Ventolin HFA 90 mcg/actuation Aerosol Inhaler RxNorm: 818981 2 Puff(s) INH Q4H 01/04/2013 No Stop Date Active prn Spiriva with HandiHaler 18 mcg & inhalation capsules RxNorm: 575943 1 Capsule(s) INH QD 12/29/2012 06/25/2013 Inactive INHALE CONTENTS OF 1 CAPSULE(S) WITH HANDIHALER ONCE DAILY Spiriva with HandiHaler 18 mcg & inhalation capsules RxNorm: 082814 1 Capsule(s) INH QD 12/26/2012 12/28/2012 Inactive INHALE CONTENTS OF 1 CAPSULE(S) WITH HANDIHALER ONCE DAILY Synthroid 112 mcg tablet RxNorm: 433711 Tablet(s) PO TA KE ONE TABLET BY MOUTH EVERY DAY 12/26/2012 04/09/2013 Inactive Endocet 10 mg-325 mg tablet RxNorm: 9117471 1-2 Tablet(s) PO Q4H 01/17/2013 Inactive PRN PAIN MS Contin 200 mg tablet,extended release RxNorm: 217430 1 Table t(s) PO BID 12/21/2012 01/17/2013 Inactive fluoxetine 20 mg capsule RxNorm: 538332 1 Capsule(s) PO QD 12/06/19 13 02/26/2013 Inactive Synthroid 112 mcg tablet RxNorm: 011269 1 Tablet(s) PO QD 12/06/2012 02/12/2019 Inactive TAKE ONE TABLET BY MOUTH EVERY DAY Ventolin HFA 90 mcg/actuation Aerosol Inhaler RxNorm: 553569 2 Puff(s) INH Q4H 12/06/2012 No Stop Date Active prn Reglan 10 mg tablet RxNorm: 400025 1 Tablet(s) PO QID b efore meals and at bedtime 11/24/2012 03/12/2013 Inactive Topamax 100 mg tablet RxNorm: 805516 1 Tablet(s) PO QHS 11/16/2012 Inactive Ventolin HFA 90 mcg/actuation Aerosol Inhaler RxNorm: 828531 2 Puff(s) INH Q4H 11/09/2012 No Stop Date Active prn gabapentin 800 mg tablet RxNorm: 499655 1 Tablet(s) PO QD 10/27/2012 04/09/2013 Inactive TAKE ONE TABLET BY MOUTH EVERY DAY metformin ER 500 mg tablet,extended release 24 hr RxNorm: 86 0977 1 Tablet(s) PO QD 10/27/2012 04/09/2013 Inactive TAKE ONE TABLET BY MOUTH EVERY DAY Symbicort 160 mcg-4.5 mcg/actuation HFA Aerosol Inhaler RxNo rm: 5143086 2 Puff(s) INH BID 10/27/2012 04/09/2013 Inactive INHALE 2 PUFFS O RALLY TWO TIMES A DAY Premarin 0.9 mg tablet RxNorm: 146850 1 Tablet(s) PO QD 10/27/2012 Inactive TAKE ONE TABLET BY MOUTH EVERY DAY Endocet 10 mg-325 mg tablet RxNorm: 4786785 1-2 Tablet(s) PO Q4H 11/24/2012 Inactive PRN PAIN MS Contin 200 mg tablet,extended release RxNorm: 126697 1 Table t(s) PO BID 10/26/2012 11/24/2012 Inactive Soma 350 mg tablet RxNorm: 941352 1 Tablet(s) PO TID 10/04/201211/02 Inactive TAKE ONE TABLET BY MOUTH THREE TIMES A D AY Ventolin HFA 90 mcg/actuation Aerosol Inhaler RxNorm: 486781 2 Puff(s) INH Q4H 10/03/2012 No Stop Date Active prn Daliresp 500 mcg tablet RxNorm: 8060176 1 Tablet(s) PO QD 09/28/2012 09/27/2012 Inactive Daliresp 500 mcg tablet RxNorm: 7801971 1 Tablet(s) PO QD 09/28/2012 04/25/2013 Inactive fluoxetine 20 mg capsule RxNorm: 137176 1 Capsule(s) PO QD 09/05/20 12 12/06/2012 Inactive Topamax 50 mg tablet RxNorm: 087295 Tablet(s) PO for 1w k then 1 po q HS for 1wk then 2 po q HS 08/29/2012 09/27/2012 Inactive TAKE 1/2 TABLET BY MOUTH AT BEDTIME FOR 1 WEEK, THEN 1 TABLET AT BEDTIME FOR 1 WEEK, THEN 2 TABLETS AT BEDTIME Topamax 100 mg tablet RxNorm: 030059 1 Tablet(s) PO QHS 08/29/2012 Inactive Ventolin HFA 90 mcg/actuation Aerosol Inhaler RxNorm: 963259 2 Puff(s) INH Q4H 08/19/2012 No Stop Date Active prn Ventolin HFA 90 mcg/actuation Aerosol Inhaler RxNorm: 552834 2 Puff(s) INH Q4H 08/15/2012 No Stop Date Active prn Synthroid 112 mcg tablet RxNorm: 169830 1 Tablet(s) PO QD 08/10/2012 11/07/2012 Inactive TAKE ONE TABLET BY MOUTH EVERY DAY Synthroid 112 mcg tablet RxNorm: 951624 1 Tablet(s) PO QD 08/01/2012 08/09/2012 Inactive TAKE ONE TABLET BY MOUTH EVERY DAY Reglan 10 mg tablet RxNorm: 818559 1 Tablet(s) PO QID b efore meals and at bedtime 08/01/2012 11/23/2012 Inactive fluoxetine 40 mg capsule RxNorm: 152537 1 Capsule(s) PO QD 08/01/2001/27/2013 Inactive TAKE ONE CAPSULE BY MOUTH EV JANKI MORNING Ventolin HFA 90 mcg/actuation Aerosol Inhaler RxNorm: 984389 2 Puff(s) INH Q4H 08/01/2012 No Stop Date Active prn Soma 350 mg tablet RxNorm: 651780 1 Tablet(s) PO TID 07/20/201208/18 Inactive TAKE ONE TABLET BY MOUTH THREE TIMES A D AY Spiriva with HandiHaler 18 mcg & inhalation capsules RxNorm: 054000 1 Capsule(s) INH 07/01/2012 12/25/2012 Inactive INHALE CONTENTS OF 1 CAPSULE(S) WITH HANDIHALER ONCE DAILY Zithromax 250 mg Tab RxNorm: 412543 2 Tablet(s) PO QD 06/28/201206/22 Inactive MS Contin 200 mg tablet,extended release RxNorm: 083561 1 Table t(s) PO BID 06/28/2012 07/27/2012 Inactive Endocet 10 mg-325 mg tablet RxNorm: 1308082 1-2 Tablet(s) PO Q4H 07/27/2012 Inactive PRN PAIN Topamax 100 mg tablet RxNorm: 059564 1 Tablet(s) PO QHS 06/28/2012 Inactive 16.2 mg-0.1037 mg-0.0194 mg tablet RxNorm: 5400046 Tablet(s) PO PRN for gas and cramping 06/08/2012 08/23/2013 Inactive TAKE TWO TABLET S BY MOUTH THREE TIMES A DAY NEEDED FOR GAS AND CRAMPING Ventolin HFA 90 mcg/actuation Aerosol Inhaler RxNorm: 156096 2 Puff(s) INH Q4H 05/23/2012 No Stop Date Active prn Ventolin HFA 90 mcg/actuation Aerosol Inhaler RxNorm: 226365 2 Puff(s) INH Q4H 05/11/2012 No Stop Date Active prn Synthroid 112 mcg tablet RxNorm: 883829 1 Tablet(s) PO QD 05/09/2012 07/31/2012 Inactive TAKE ONE TABLET BY MOUTH EVERY DAY gabapentin 800 mg tablet RxNorm: 917192 1 Tablet(s) PO QD 05/09/2012 10/26/2012 Inactive TAKE ONE TABLET BY MOUTH EVERY DAY fluoxetine 40 mg capsule RxNorm: 451066 1 Capsule(s) PO QD 05/09/2007/31/2012 Inactive TAKE ONE CAPSULE BY MOUTH EV JANKI MORNING metformin ER 500 mg tablet,extended release 24 hr RxNorm: 86 0977 1 Tablet(s) PO QD 05/09/2012 10/26/2012 Inactive TAKE ONE TABLET BY MOUTH EVERY DAY Premarin 0.9 mg tablet RxNorm: 469972 1 Tablet(s) PO QD 05/09/2012 Inactive TAKE ONE TABLET BY MOUTH EVERY DAY Symbicort 160 mcg-4.5 mcg/actuation HFA Aerosol Inhaler RxNo rm: 1230799 2 Puff(s) INH BID 05/09/2012 10/26/2012 Inactive INHALE 2 PUFFS O RALLY TWO TIMES A DAY Endocet 10 mg-325 mg Tab RxNorm: 5348045 1-2 Tablet(s) PO Q4H 04/2705/26/2012 Inactive PRN PAIN MS Contin 200 mg Tab RxNorm: 174425 1 Tablet(s) PO BID 04/26/201202/2012 Inactive Ventolin HFA 90 mcg/actuation Aerosol Inhaler RxNorm: 194790 2 Puff(s) INH Q4H 04/25/2012 05/10/2012 Inactive prn Soma 350 mg tablet RxNorm: 333088 2 Tablet(s) PO TID 04/19/201207/19 Inactive TAKE ONE TABLET BY MOUTH THREE TIMES A D AY Ventolin HFA 90 mcg/actuation Aerosol Inhaler RxNorm: 461025 2 Puff(s) INH Q4H 04/12/2012 04/24/2012 Inactive prn Reglan 10 mg tablet RxNorm: 527825 1 Tablet(s) PO QID b efore meals and at bedtime 04/11/2012 07/31/2012 Inactive MS Contin 200 mg Tab RxNorm: 333851 1 Tablet(s) PO BID 03/30/201202/2012 Inactive Endocet 10 mg-325 mg Tab RxNorm: 9836248 1-2 Tablet(s) PO Q4H 03/3004/26/2012 Inactive PRN PAIN MS Contin 200 mg Tab RxNorm: 991932 1 Tablet(s) PO BID 03/02/201206/2012 Inactive Endocet 10 mg-325 mg Tab RxNorm: 0953236 1-2 Tablet(s) PO Q4H 03/0203/29/2012 Inactive PRN PAIN Daliresp 500 mcg tablet RxNorm: 9343531 1 Tablet(s) PO QD 03/01/2012 09/28/2012 Inactive MS Contin 200 mg Tab RxNorm: 083328 1 Tablet(s) PO BID 02/02/201208/2012 Inactive Endocet 10 mg-325 mg Tab RxNorm: 6555138 1-2 Tablet(s) PO Q4H 02/0103/01/2012 Inactive PRN PAIN fluoxetine 40 mg capsule RxNorm: 231772 1 Capsule(s) PO QD 02/02/2008/01/2012 Inactive TAKE ONE CAPSULE BY MOUTH EV JANKI MORNING Synthroid 112 mcg Tab RxNorm: 556137 1 Tablet(s) PO QD 01/18/2012 Inactive TAKE ONE TABLET BY MOUTH EVERY DAY lactulose 10 gram/15 mL oral solution RxNorm: 071661 [address]s) PO QD 01/18/2012 No Stop Date Active TAKE 1 TABLESPOON BY MOUTH ONCE DAILY Ventolin HFA 90 mcg/actuation Aerosol Inhaler RxNorm: 335576 2 Puff(s) INH Q4H 01/18/2012 04/11/2012 Inactive prn MS Contin 200 mg Tab RxNorm: 968116 1 Tablet(s) PO BID 01/05/201210/2012 Inactive Endocet 10 mg-325 mg Tab RxNorm: 6997563 1-2 Tablet(s) PO Q4H 01/0502/01/2012 Inactive PRN PAIN ProAir HFA 90 mcg/Actuation Aerosol Inhaler RxNorm: 484885 2 Pu ff(s) INH Q4H 12/21/2011 No Stop Date Active prn for wheezing or shortness of breath Spiriva with HandiHaler 18 mcg & inhalation Caps RxNorm: 580 261 1 Capsule(s) INH 12/21/2011 06/30/2012 Inactive INHALE CONTENTS OF 1 CAPSULE(S) WITH HANDIHALER ONCE DAILY Reglan 10 mg Tab RxNorm: 610149 1 Tablet(s) PO QID before meals and at bedtime 12/21/2011 04/10/2012 Inactive Synthroid 112 mcg Tab RxNorm: 462158 1 Tablet(s) PO QD 12/21/2011 Inactive TAKE ONE TABLET BY MOUTH EVERY DAY Endocet 10 mg-325 mg Tab RxNorm: 0843513 1-2 Tablet(s) PO Q4H 11/2512/24/2011 Inactive PRN PAIN MS Contin 200 mg Tab RxNorm: 842223 1 Tablet(s) PO BID 11/25/201112/2011 Inactive lactulose 10 gram/15 mL Oral Soln RxNorm: 929003 Milliliter(s) PO 1 No Stop Date Active TAKE 1 TABLESPOON BY MOUTH O NCE DAILY lactulose 10 gram/15 mL Oral Soln RxNorm: 126252 Milliliter(s) PO 1 12/12/2010 11/20/2011 Inactive TAKE 1 TABLESPOON BY MOUTH O NCE DAILY Premarin 0.9 mg Tab RxNorm: 608424 1 Tablet(s) PO QD 10/12/201105/08 Inactive TAKE ONE TABLET BY MOUTH EVERY DAY fluoxetine 20 mg capsule RxNorm: 735629 1 Capsule(s) PO QD 10/12/2009/05/2012 Inactive TAKE ONE CAPSULE BY MOUTH EV JANKI DAY Synthroid 112 mcg Tab RxNorm: 221864 1 Tablet(s) PO QD 10/12/2011 Inactive TAKE ONE TABLET BY MOUTH EVERY DAY metformin ER 500 mg 24 hr Tab RxNorm: 889656 1 Tablet(s) PO QD 09/2311/10/2011 Inactive TAKE ONE TABLET BY MOUTH GLYNN RY DAY Synthroid 112 mcg Tab RxNorm: 038583 1 Tablet(s) PO QD 10/12/2011 Inactive TAKE ONE TABLET BY MOUTH EVERY DAY metformin ER 500 mg 24 hr Tab RxNorm: 694541 1 Tablet(s) PO QD 09/2310/11/2011 Inactive TAKE ONE TABLET BY MOUTH GLYNN RY DAY Prevacid 30 mg Cap RxNorm: 166412 Capsule(s) PO 10/12/2011 01/25/2012 Inactive TAKE ONE CAPSULE BY MOUTH EVERY DAY Symbicort 160 mcg-4.5 mcg/actuation HFA Aerosol Inhaler RxNo rm: 5176292 2 Puff(s) INH BID 10/12/2011 05/08/2012 Inactive INHALE 2 PUFFS O RALLY TWO TIMES A DAY gabapentin 800 mg Tab RxNorm: 281138 1 Tablet(s) PO QD 10/12/2011 Inactive TAKE ONE TABLET BY MOUTH EVERY DAY MS Contin 200 mg Tab RxNorm: 951040 1 Tablet(s) PO BID 09/23/201111/2010 Inactive Endocet 10 mg-325 mg Tab RxNorm: 7637814 1-2 Tablet(s) PO Q4H 09/2310/22/2011 Inactive PRN PAIN Endocet 10 mg-325 mg Tab RxNorm: 8406977 1-2 Tablet(s) PO Q4H 08/2109/19/2011 Inactive PRN PAIN MS Contin 200 mg Tab RxNorm: 254249 1 Tablet(s) PO BID 08/21/2011 Inactive Diflucan 100 mg Tab RxNorm: 358149 1 Tablet(s) PO QD 08/10/201108/16 Inactive cefdinir 300 mg Cap RxNorm: 022911 2 Capsule(s) PO QD 08/10/201107/24 Inactive Reglan 10 mg Tab RxNorm: 814905 1 Tablet(s) PO AC & HS 07/15/2011 Inactive Endocet 10 mg-325 mg Tab RxNorm: 3818522 1-2 Tablet(s) PO Q4H 07/1508/13/2011 Inactive PRN PAIN One Touch Ultra Test strips RxNorm: Miscellaneous BID 06/11/2011 1 01/16/2014 Inactive TEST TWO TIMES A DAY lactulose 10 gram/15 mL Oral Soln RxNorm: 667161 Milliliter(s) PO 0 06/10/2011 10/11/2011 Inactive TAKE 1 TABLESPOON BY MOUTH O NCE DAILY Chantix Continuing Month Aníbal 1 mg Tab RxNorm: 432483 Tablet(s) PO 0 06/10/2011 11/02/2011 Inactive TAKE DIRECTED - PER PACK[employer] GE INSTRUCTIONS fluoxetine 40 mg Cap RxNorm: 677886 Capsule(s) PO 06/10/2011 02/02/20 Inactive TAKE ONE CAPSULE BY MOUTH EVERY MORNING Chantix Continuing Month Aníbal 1 mg Tab RxNorm: 499905 Ta blet(s) PO TAKE DIRECTED - PER PACKAGE INSTRUCTIONS 05/13/2011 06/09/2011 Inactive Soma 350 mg Tab RxNorm: 954668 Tablet(s) PO TAKE ON E TABLET BY MOUTH THREE TIMES A DAY 05/13/2011 04/18/2012 Inactive Chantix Continuing Month Aníbal 1 mg Tab RxNorm: 531051 Ta blet(s) PO as directed per package instructions. 04/22/2011 05/12/2011 Inactive Symbicort 160 mcg-4.5 mcg/Actuation HFA Aerosol Inhaler RxNo rm: 1421519 HFA Aerosol Inhaler INH INHALE 2 PUFFS ORALLY TWO TIMES A DAY 04/13/2011 Inactive Synthroid 112 mcg Tab RxNorm: 131122 Tablet(s) PO TAKE ONE TABLET BY MOUTH EVERY DAY 04/13/2011 10/12/2011 Inactive Premarin 0.9 mg Tab RxNorm: 345811 Tablet(s) PO TAKE ON E TABLET BY MOUTH EVERY DAY 04/13/2011 10/12/2011 Inactive gabapentin 800 mg Tab RxNorm: 129418 Tablet(s) PO TAKE ONE TABLET BY MOUTH EVERY DAY 04/13/2011 10/12/2011 Inactive Prevacid 30 mg Cap RxNorm: 073836 1 Capsule(s) PO QD 04/13/201110/11 Inactive Spiriva with HandiHaler 18 mcg & inhalation Caps RxNorm: 580 261 Capsule(s) INH INHALE CONTENTS OF 1 CAPSULE(S) WITH HANDIHALER ONCE DAILY 04/13/2011 12/21/2011 Inactive metformin ER 500 mg 24 hr Tab RxNorm: 293913 Tablet(s) PO TAKE ONE TABLET BY MOUTH EVERY DAY 04/13/2011 10/12/2011 Inactive Soma 350 mg Tab RxNorm: 564649 1 Tablet(s) PO QID 03/30/2011 02/13/20 19 Inactive fluoxetine 20 mg Cap RxNorm: 657919 Capsule(s) PO TAKE ONE CAPSULE BY MOUTH EVERY DAY 03/25/2011 10/12/2011 Inactive cefdinir 300 mg Cap RxNorm: 814625 2 Capsule(s) PO QD 03/19/201105/2011 Inactive 16.2 mg-0.1037 mg-0.0194 mg Tab RxNorm: 9674108 2 Tablet(s) PO TID PRN for gas and cramping 03/16/2011 07/13/2011 Inactive Soma 350 mg Tab RxNorm: 068568 2 Tablet(s) PO TID 03/16/2011 03/29/20 11 Inactive Chantix Starting Month Aníbal 0.5 mg (11)-1 mg (3x14) Tab s in a Dose Pack RxNorm: 688893 Tablet(s) PO as directed 03/02/2011 No Stop Date Active diazepam 10 mg Tab RxNorm: 705428 1 Tablet(s) PO BID 02/10/201101/19 Inactive Zofran 4 mg tablet RxNorm: 060368 1 Tablet(s) PO Q4H prn nausea 02/16/2011 Inactive Diflucan 100 mg Tab RxNorm: 890212 1 Tablet(s) PO QD 01/18/201101/24 Inactive Premarin 0.625 mg/g Vaginal Cream RxNorm: 706928 VAG In sert 1gm vaginally at bedtime 3 times weekly 01/18/2011 02/12/2019 Inactive loratadine 10 mg Tab RxNorm: 5818903 1 Tablet(s) PO QD 12/17/201003/2012 Inactive Spiriva with HandiHaler 18 mcg & inhalation Caps RxNorm: 580 261 1 Capsule(s) INH QD 12/17/2010 04/12/2011 Inactive Diflucan 100 mg Tab RxNorm: 144204 1 Tablet(s) PO QD 12/17/201012/23 Inactive diazepam 10 mg Tab RxNorm: 447404 1 Tablet(s) PO BID and PRN 201002/12/2019 Inactive One Touch Ultra Test Strips RxNorm: InVt BID Zainab t blood sugar at least twice daily. 11/11/2010 06/11/2011 Inactive fluoxetine 40 mg Cap RxNorm: 432958 1 Capsule(s) PO QAM 11/11/2010 Inactive diazepam 10 mg Tab RxNorm: 503671 1 Tablet(s) PO BID and PRN 200911/12/2010 Inactive Bactrim DS 800 mg-160 mg Tab RxNorm: 611107 1 Tablet(s) PO BID 09/2210/15/2010 Inactive fluoxetine 20 mg Cap RxNorm: 498107 1 Capsule(s) PO QD 10/02/201008/2011 Inactive Bactrim DS 800 mg-160 mg Tab RxNorm: 214743 1 Tablet(s) PO BID 01/201010/03/2010 Inactive Zofran 4 mg Tab RxNorm: 544598 1 Tablet(s) PO Q4H prn nausea 200910/16/2010 Inactive 16.2 mg-0.1037 mg-0.0194 mg Tab RxNorm: 7020452 2 Tablet(s) PO TID PRN for gas and cramping 09/17/2010 10/21/2010 Inactive Gabapentin 800 mg Tab RxNorm: 455388 1 Tablet(s) PO QD 09/16/2010 Inactive ProAir HFA 90 mcg/Actuation Aerosol Inhaler RxNorm: 665078 2 Puff(s) INH Q4H prn shortness of breath 09/15/2010 12/13/2010 Inactive gabapentin 800 mg Tab RxNorm: 933653 1 Tablet(s) PO QD 09/15/2010 Inactive Prevacid 30 mg Cap RxNorm: 333158 1 Capsule(s) PO QD 09/15/201004/12 Inactive loratadine 10 mg Tab RxNorm: 4233885 1 Tablet(s) PO QD 09/15/2010 Inactive Premarin 0.9 mg Tab RxNorm: 197976 1 Tablet(s) PO QD 09/15/201004/12 Inactive Synthroid 112 mcg Tab RxNorm: 386057 1 Tablet(s) PO QD 09/15/2010 Inactive metformin ER 500 mg 24 hr Tab RxNorm: 405295 1 Tablet(s) PO QD 08/2304/12/2011 Inactive Symbicort 160 mcg-4.5 mcg/Actuation Inhalation HFA Aer osol Inhaler RxNorm: 4473339 2 Puff(s) INH BID 09/15/2010 04/12/2011 Inactive diazepam 10 mg Tab RxNorm: 346255 1 Tablet(s) PO BID and PRN 200910/13/2010 Inactive Phentermine 37.5 mg Cap RxNorm: 299886 1 Capsule(s) PO QD 09/02/2010 11/02/2011 Inactive ProAir HFA 90 mcg/Actuation Aerosol Inhaler RxNorm: 525946 2 Puff(s) INH Q4H prn shortness of breath 08/07/2010 No Stop Date Active Premarin 0.9 mg Tab RxNorm: 201017 1 Tablet(s) PO QD 08/07/201009/14 Inactive Loratadine 10 mg Tab RxNorm: 9528252 1 Tablet(s) PO QD 08/07/2010 Inactive Lactulose 10 gram/15 mL Oral Soln RxNorm: 299001 1 Unit Dose PO QD 08/07/2010 02/12/2019 Inactive Zofran 4 mg Tab RxNorm: 347707 1 Tablet(s) PO Q4H prn nausea 2009 No Stop Date Active Gabapentin 800 mg Tab RxNorm: 047646 1 Tablet(s) PO QD 08/07/2010 Inactive Synthroid 112 mcg Tab RxNorm: 756624 1 Tablet(s) PO QD 08/07/2010 Inactive Metformin ER 500 mg 24 hr Tab RxNorm: 933162 1 Tablet(s) PO QD 07/2309/14/2010 Inactive Vitamin D 1,000 unit Tab RxNorm: 068752 1 Tablet(s) PO TID 08/07/2002/12/2019 Inactive Symbicort 160 mcg-4.5 mcg/Actuation Inhalation HFA Aer osol Inhaler RxNorm: 7952313 2 Puff(s) INH BID 08/07/2010 09/14/2010 Inactive Prevacid 30 mg Cap RxNorm: 682408 1 Capsule(s) PO QD 08/07/201009/14 Inactive Metformin ER 500 mg 24 hr Tab RxNorm: 582271 1 Tablet(s) PO QD 06/2308/06/2010 Inactive Vitamin D 1,000 unit Tab RxNorm: 814343 1 Tablet(s) PO TID 07/14/2008/06/2010 Inactive Synthroid 112 mcg Tab RxNorm: 141370 1 Tablet(s) PO QD 07/14/2010 Inactive Lactulose 10 gram/15 mL Oral Soln RxNorm: 539554 1 Unit Dose PO QD 07/14/2010 08/06/2010 Inactive Levaquin 500 mg Tab RxNorm: 558195 1 Tablet(s) PO QD 07/14/201007/27 Inactive Premarin 0.9 mg Tab RxNorm: 434220 1 Tablet(s) PO QD 07/14/201008/06 Inactive ProAir HFA 90 mcg/Actuation Aerosol Inhaler RxNorm: 035255 2 Puff(s) INH Q4H prn shortness of breath 07/14/2010 No Stop Date Active Prevacid 30 mg Cap RxNorm: 384305 1 Capsule(s) PO QD 07/14/201008/06 Inactive Zofran 4 mg Tab RxNorm: 948590 1 Tablet(s) PO Q4H prn nausea 2009 No Stop Date Active Symbicort 160 mcg-4.5 mcg/Actuation Inhalation HFA Aer osol Inhaler RxNorm: 2213340 2 Puff(s) INH BID 07/14/2010 08/06/2010 Inactive Loratadine 10 mg Tab RxNorm: 4273858 1 Tablet(s) PO QD 07/14/2010 Inactive Gabapentin 800 mg Tab RxNorm: 933672 1 Tablet(s) PO QD 07/14/2010 Inactive Metformin ER 500 mg 24 hr Tab RxNorm: 185765 1 Tablet(s) PO 010 07/13/2010 Inactive Diazepam 10 mg Tab RxNorm: 044600 1 Tablet(s) PO BID and PRN 200909/06/2010 Inactive Premarin 0.9 mg Tab RxNorm: 685476 1 Tablet(s) PO QD 06/09/201007/13 Inactive Zofran 4 mg Tab RxNorm: 061359 1 Tablet(s) PO Q4H prn nausea 2009 No Stop Date Active ProAir HFA 90 mcg/Actuation Aerosol Inhaler RxNorm: 088909 2 Puff(s) INH Q4H prn shortness of breath 06/09/2010 No Stop Date Active Gabapentin 800 mg Tab RxNorm: 800517 1 Tablet(s) PO QD 06/09/2010 Inactive Loratadine 10 mg Tab RxNorm: 9185545 1 Tablet(s) PO QD 06/09/2010 Inactive Lactulose 10 gram/15 mL Oral Soln RxNorm: 039265 1 Unit Dose PO QD 06/09/2010 07/13/2010 Inactive Prevacid 30 mg Cap RxNorm: 115648 1 Capsule(s) PO QD 06/09/201007/13 Inactive Synthroid 112 mcg Tab RxNorm: 407558 1 Tablet(s) PO QD 06/09/2010 Inactive Symbicort 160 mcg-4.5 mcg/Actuation Inhalation HFA Aer osol Inhaler RxNorm: 4291492 2 Puff(s) INH BID 06/09/2010 07/13/2010 Inactive Omnicef 300 mg Cap RxNorm: 270318 2 Capsule(s) PO QD 05/07/201005/20 Inactive Metformin 500 mg Tab RxNorm: 113209 1 Tablet(s) PO QD 05/06/201005/22 Inactive ProAir HFA 90 mcg/Actuation Aerosol Inhaler RxNorm: 652214 2 Puff(s) INH Q4H prn shortness of breath 05/06/2010 No Stop Date Active lactulose 10 gram/15 mL Oral Soln RxNorm: 309925 1 Unit Dose PO QD 05/06/2010 06/10/2011 Inactive Loratadine 10 mg Tab RxNorm: 3940651 1 Tablet(s) PO QD 05/06/2010 Inactive Synthroid 112 mcg Tab RxNorm: 569017 1 Tablet(s) PO QD 05/06/2010 Inactive Symbicort 160 mcg-4.5 mcg/Actuation Inhalation HFA Aer osol Inhaler RxNorm: 1972371 2 Puff(s) INH BID 05/06/2010 06/08/2010 Inactive Gabapentin 800 mg Tab RxNorm: 771550 1 Tablet(s) PO QD 05/06/2010 Inactive 16.2 mg-0.1037 mg-0.0194 mg Tab RxNorm: 5896776 2 Tablet(s) PO TID PRN for gas and cramping 05/06/2010 05/12/2010 Inactive Zofran 4 mg Tab RxNorm: 614494 1 Tablet(s) PO Q4H prn nausea 200904/13/2010 Inactive MS Contin 60 mg Tab RxNorm: 515465 3 Tablet(s) PO BID 04/09/201004/22 Inactive Soma 350 mg Tab RxNorm: 774943 2 Tablet(s) PO TID 04/09/2010 05/08/20 10 Inactive Symbicort 160 mcg-4.5 mcg/Actuation Inhalation HFA Aer osol Inhaler RxNorm: 9196634 2 Puff(s) INH BID 04/08/2010 05/05/2010 Inactive Doxycycline 100 mg Cap RxNorm: 7428167 1 Capsule(s) PO BID 04/08/20 10 04/17/2010 Inactive Triamterene-Hydrochlorothiazide 37.5 mg-25 mg Cap RxNorm: 19 8316 1 Capsule(s) PO QAM 04/08/2010 09/04/2010 Inactive fluoxetine 40 mg Cap RxNorm: 436126 1 Capsule(s) PO QAM 04/08/2010 Inactive Morphine SR 120 mg multiphase 24 hr Cap RxNorm: 405401 1 Capsul e(s) PO 03/11/2010 04/07/2010 Inactive Endocet 10 mg-325 mg Tab RxNorm: 4949013 1-2 Tablet(s) PO Q4H NC N PAIN 03/11/2010 04/09/2010 Inactive Savella 100 mg Tab RxNorm: 078759 1 Tablet(s) PO BID 03/10/201004/09 Inactive Soma 350 mg Tab RxNorm: 908073 1 Tablet(s) PO TID prn spasm 010 04/09/2010 Inactive Savella 100 mg Tab RxNorm: 692138 1 Tablet(s) PO BID 02/03/201004/09 Inactive Aspirin 81 mg Tab RxNorm: 523142 1 Tablet(s) PO QD No Start Date Active Zyrtec 10 mg Tab RxNorm: 1299679 1 Tablet(s) PO QD No Start Date Active One Touch Ultra Test Strips RxNorm: Misc test at least t wice daily. No Start Date Active coenzyme Q10 200 mg capsule RxNorm: 168100 1 Capsule(s) PO QD No Star t Date Active One Touch Ultra Test Strips RxNorm: InVt BID Zainab t blood sugar at least twice daily. No Start Date 11/10/2010 Inactive Gabapentin 800 mg Tab RxNorm: 784080 1 Tablet(s) PO QD No Start Date 05/05/2010 Inactive Abilify 5 mg tablet RxNorm: 333533 1 Tablet(s) PO QD No Start Date Inactive Chantix 1 mg Tab RxNorm: 267496 1 Tablet(s) PO BID No Start Date 10/22 Inactive Ozempic 0.25 mg or 0.5 mg (2 mg/1.5 mL) subcutaneous p en injector RxNorm: 6813276 .25 Milligram(s) SQ QW No Start Date 07/04/2019 Inactive lancets 28 gauge RxNorm: Miscellaneous As needed for blo od glucose sticks No Start Date 08/23/2013 Inactive potassium chloride ER 20 mEq tablet,extended release RxNorm: 425105 2 Tablet(s) PO QD No Start Date 09/26/2018 Inactive Ventolin HFA 90 mcg/actuation Aerosol Inhaler RxNorm: 547532 2 Puff(s) INH Q4H prn No Start Date 01/17/2012 Inactive potassium chloride ER 20 mEq tablet,extended release RxNorm: 131780 2 Tablet(s) PO QD No Start Date 10/19/2018 Inactive Januvia 100 mg tablet RxNorm: 647326 1 Tablet(s) PO QD No Start Date 09/10/2015 Inactive Medrol (Aníbal) 4 mg Tabs in a Dose Pack RxNorm: 739813 Tablet(s) PO N o Start Date 08/09/2011 Inactive as directed Zithromax Z-Aníbal 250 mg Tab RxNorm: 030339 Tablet(s) PO No Start Date 01/25/2012 Inactive as directed vitamin B6-vitamin E-magnesium tablet RxNorm: 1 Tablet(s ) PO QHS with INH No Start Date 03/30/2018 Inactive prednisone 20 mg Tab RxNorm: 940416 1 Tablet(s) PO TID for 1wk then 1 po BID for 1wk No Start Date 01/25/2012 Inactive furosemide 40 mg tablet RxNorm: 294644 1 Tablet(s) PO QAM No Start Date 10/09/2018 Inactive Vitamin D3 1000 units Capsule RxNorm: 1 Capsule(s) PO TID No S tart Date 03/19/2015 Inactive Zofran 4 mg Tab RxNorm: 348471 1 Tablet(s) PO Q4H prn nausea No Sta rt Date 04/13/2010 Inactive Premarin 0.625 mg/g Vaginal Cream RxNorm: 237113 1 Gram (s) VAG QHS 3 times a week No Start Date 09/22/2017 Inactive oxycodone 10 mg tablet RxNorm: 9632210 1-2 Tablet(s) PO QID as n eeded for pain No Start Date 11/04/2015 Inactive Nicoderm CQ 21 mg/24 hr daily Patch RxNorm: 657466 1 Applicatio n TD QD No Start Date 08/05/2015 Inactive Topamax 50 mg tablet RxNorm: 574955 1/2 Tablet(s) PO QH S for 1wk then 1 po q HS for 1wk then 2 po q HS No Start Date 06/27/2012 Inactive Chantix Starting Month Aníbal 0.5 mg (11)-1 mg (3x14) Tab s in a Dose Pack RxNorm: 257467 Tablet(s) PO as directed No Start Date 03/01/2011 Inactive Trulicity 0.75 mg/0.5 mL subcutaneous pen injector RxNorm: 1 311542 Milliliter(s) SQ No Start Date 07/04/2019 Inactive Medrol (Aníbal) 4 mg Tabs in a Dose Pack RxNorm: 968229 Tablet(s) PO N o Start Date 01/25/2012 Inactive as directed Duragesic 100 mcg/hr Transderm Patch RxNorm: 923789 2 A pplication TD Q48H for pain No Start Date 09/05/2013 Inactive Premarin 0.9 mg Tab RxNorm: 553096 1 Tablet(s) PO QD No Start Date Inactive Zithromax Z-Aníbal 250 mg Tab RxNorm: 025085 Tablet(s) PO as direc chinmay No Start Date 01/25/2012 Inactive ondansetron 8 mg disintegrating tablet RxNorm: 097904 1 Tablet(s) PO Q6H as needed No Start Date 10/10/2018 Inactive oxycodone 15 mg tablet RxNorm: 3792164 1 Tablet(s) PO QID as nee ded for pain No Start Date 03/05/2019 Inactive ProAir HFA 90 mcg/Actuation Aerosol Inhaler RxNorm: 491245 2 Puff(s) INH Q4H prn for wheezing or shortness of breath No Start Date 12/21/2011 Inactive pravastatin 40 mg tablet RxNorm: 653491 1/2 Tablet(s) PO QOD No Sta rt Date 04/09/2015 Inactive ipratropium-albuterol 0.5 mg-3 mg(2.5 mg base)/3 mL ne bulization soln RxNorm: 5355648 1 Unit Dose INH Q4H as needed No Start Date 09/09/2016 Inactive furosemide 40 mg tablet RxNorm: 467903 1 Tablet(s) PO QAM as ne eded No Start Date 09/24/2019 Inactive Vitamin D2 oral RxNorm: 4018 oral No Start Date 03/18/2015 Inacti ve pravastatin 40 mg tablet RxNorm: 018383 1/2 Tablet(s) PO QD No Star t Date 04/09/2015 Inactive ondansetron HCl 4 mg tablet RxNorm: 905613 1 Tablet(s) PO Q4H as needed for nausea and vomiting No Start Date 04/07/2016 Inactive furosemide 40 mg tablet RxNorm: 232805 2 Tablet(s) PO QAM No Start Date 09/26/2018 Inactive gabapentin 800 mg tablet RxNorm: 354128 1/2 Tablet(s) PO BID No Sta rt Date 06/21/2017 Inactive gabapentin 800 mg tablet RxNorm: 802255 1/2 Tablet(s) PO BID No Sta rt Date 07/05/2017 Inactive ProAir HFA 90 mcg/Actuation Aerosol Inhaler RxNorm: 743435 2 Puff(s) INH Q4H prn shortness of breath No Start Date 05/05/2010 Inactive scopolamine 1 mg over 3 days transdermal patch RxNorm: 05959 2 1 Application TD behind ear. Take off after three days No Start Date 10/10/2018 Inactive Metformin 500 mg Tab RxNorm: 525489 1 Tablet(s) PO QD No Start Date 0 05/05/2010 Inactive MS Contin 200 mg Tab RxNorm: 899717 1 Tablet(s) PO BID No Start Date 08/20/2011 Inactive Belladonna-Phenobarbital 48 mg tablet,extended release RxNor m: 2 Tablet(s) PO TID No Start Date 06/04/2016 Inactive Synthroid 112 mcg Tab RxNorm: 080541 1 Tablet(s) PO QD No Start Date 05/05/2010 Inactive Zegerid 40 mg-1.1 gram Cap RxNorm: 566978 1 Capsule(s) PO QD No Sta rt Date 01/25/2012 Inactive Premarin 0.625 mg/g Vaginal Cream RxNorm: 561095 VAG In sert 1gm vaginally at bedtime 3 times weekly No Start Date 01/17/2011 Inactive potassium chloride ER 20 mEq tablet,extended release RxNorm: 070342 1 Tablet(s) PO QD No Start Date 04/24/2019 Inactive methocarbamol 750 mg tablet RxNorm: 575392 2 Tablet(s) PO TID as needed for muscle spasm No Start Date 07/08/2014 Inactive Biaxin XL Aníbal 500 mg 24 hr Tab RxNorm: 169258 Tablet(s) PO as d irected No Start Date 04/24/2013 Inactive Vitamin D3 1,000 unit tablet RxNorm: 311029 3 Tablet(s) PO QD No St art Date 06/01/2017 Inactive Morphine SR 120 mg multiphase 24 hr Cap RxNorm: 607134 1 Capsul e(s) PO BID No Start Date 04/09/2010 Inactive Silvadene 1 % topical cream RxNorm: 477620 1 Application TOP BI D to burn area No Start Date 01/31/2017 Inactive Prednisone 20 mg Tab RxNorm: 281424 1 Tablet(s) PO TID for 3days then BID for 4days No Start Date 01/25/2012 Inactive gabapentin 600 mg tablet RxNorm: 025126 1 Tablet(s) PO BID No Start Date 01/21/2015 Inactive topiramate 50 mg tablet RxNorm: 264996 1 Tablet(s) PO QHS No Start Date 03/30/2018 Inactive Januvia 100 mg tablet RxNorm: 442189 1/2 Tablet(s) PO QD No Start D ate 12/25/2015 Inactive Diazepam 10 mg Tab RxNorm: 140248 1 Tablet(s) PO BID and PRN No Sta rt Date 06/08/2010 Inactive Medication Administered No Medication Administered data Immunizations Vaccine Codes Date Status Influenza CVX: 141 09/28/2012 Pneumovax Unknown 09/28/2012 Influenza (Adult) CVX: 141 09/02/2010 Results No Results data Procedures Procedure Codes Date THER/PROPH/DIAG INJ SC/IM CPT-4: 87300 07/10/2019 METHYLPREDNISOLONE INJECTION CPT-4: J2930 07/10/2019 URINALYSIS NONAUTO W/O SCOPE CPT-4: 30303 09/06/2018 URINE CULTURE/ COLONY COUNT CPT-4: 06139 09/06/2018 DRAIN/INJECT JOINT/BURSA CPT-4: 53612 04/29/2017 TRIAMCINOLONE ACET INJ NOS CPT-4: J3301 04/29/2017 DEXAMETHASONE SODIUM PHOS CPT-4: J1100 04/29/2017 INFLUENZA ASSAY W/OPTIC CPT-4: 06471 12/01/2016 RESPIRATORY CULTURE & STAIN CPT-4: 39328 07/09/2016 TB INTRADERMAL TEST CPT-4: 51011 04/21/2016 DRAIN/INJECT JOINT/BURSA CPT-4: 80800 11/07/2013 METHYLPREDNISOLONE 40 MG INJ CPT-4: J1030 11/07/2013 TRIAMCINOLONE ACET INJ NOS CPT-4: J3301 11/07/2013 DRAIN/INJECT JOINT/BURSA CPT-4: 34860 08/08/2013 METHYLPREDNISOLONE 40 MG INJ CPT-4: J1030 08/08/2013 TRIAMCINOLONE ACET INJ NOS CPT-4: J3301 08/08/2013 FLU VACCINE 3 YRS & > IM UP 64 CPT-4: 48706 2 PNEUMOCOCCAL VACC 23 ADITYA IM CPT-4: 00576 09/28/2012 IMMUNIZATION ADMIN CPT-4: 97995 09/28/2012 IMMUNIZATION ADMIN EACH ADD CPT-4: 23987 09/28/2012 FLU VACCINE 3 YRS & > IM UP 64 CPT-4: 64787 0 IMMUNIZATION ADMIN CPT-4: 23916 09/02/2010 METHYLPREDNISOLONE INJECTION CPT-4: J2930 05/07/2010 THER/PROPH/DIAG INJ SC/IM CPT-4: 31501 05/07/2010 Vital Signs Date Vital 11/29/2019 Blood [...] 1: 122/78 Code: 8480-6 BMI: 29.5 Code: 03474-5 Heart Rate 1: 76 bpm Height: 5'4" Respiratory Rate: 20 bpm SpO2: 96% Tempera ture: 37.0 (C) / 98.6 (F) Weight: 172 lbs 01/25/2019 Blood Pressure 1: 132/80 Code: 8480-6 BMI: 29.7 Code: 06379-7 Heart Rate 1: 84 bpm Height: 5'4" Respiratory Rate: 22 bpm SpO2: 98% Tempera ture: 36.9 (C) / 98.4 (F) Weight: 173 lbs 01/03/2019 Blood Pressure 1: 116/70 Code: 8480-6 BMI: 29.5 Code: 52159-4 Heart Rate 1: 92 bpm Height: 5'4" Respiratory Rate: 24 bpm SpO2: 98% Tempera ture: 37.2 (C) / 98.9 (F) Weight: 172 lbs 11/21/2018 Blood Pressure 1: 146/82 Code: 8480-6 BMI: 28.2 Code: 64617-0 Heart Rate 1: 88 bpm Height: 5'4" Respiratory Rate: 22 bpm SpO2: 97% Tempera ture: 36.9 (C) / 98.4 (F) Weight: 164 lbs 10/27/2018 Blood Pressure 1: 122/70 Code: 8480-6 BMI: 27.6 Code: 98297-6 Heart Rate 1: 88 bpm Height: 5'4" Respiratory Rate: 20 bpm SpO2: 96% Tempera ture: 36.8 (C) / 98.3 (F) Weight: 161 lbs 10/18/2018 Blood Pressure 1: 126/70 Code: 8480-6 BMI: 28.3 Code: 07242-7 Heart Rate 1: 76 bpm Height: 5'4" Respiratory Rate: 20 bpm SpO2: 95% Tempera ture: 37.0 (C) / 98.6 (F) Weight: 165 lbs 09/27/2018 Blood Pressure 1: 124/78 Code: 8480-6 BMI: 27.1 Code: 90877-1 Heart Rate 1: 88 bpm Height: 5'4" Respiratory Rate: 20 bpm SpO2: 98% Tempera ture: 36.4 (C) / 97.6 (F) Weight: 158 lbs 09/14/2018 Blood Pressure 1: 140/72 Code: 8480-6 BMI: 26.1 Code: 15801-6 Heart Rate 1: 100 bpm Height: 5'4" Respiratory Rate: 20 bpm SpO2: 97% Tempera ture: 36.9 (C) / 98.4 (F) Weight: 152 lbs 09/06/2018 Blood Pressure 1: 156/82 Code: 8480-6 BMI: 26.3 Code: 28082-5 Heart Rate 1: 100 bpm Height: 5'4" Respiratory Rate: 28 bpm SpO2: 95% Tempera ture: 37.2 (C) / 98.9 (F) Weight: 153 lbs 08/16/2018 Blood Pressure 1: 130/78 Code: 8480-6 Heart Rate 1: 87 bpm Respiratory Rate: 24 bpm SpO2: 94% Temperature: 36.9 (C) / 98.4 (F) We ight: 147 lbs 8 oz 07/07/2018 Blood Pressure 1: 116/78 Code: 8480-6 BMI: 22.7 Code: 41111-3 Heart Rate 1: 88 bpm Height: 5'4" Respiratory Rate: 22 bpm SpO2: 98% Tempera ture: 36.5 (C) / 97.7 (F) Weight: 132 lbs 05/31/2018 Blood Pressure 1: 128/78 Code: 8480-6 BMI: 22.3 Code: 97279-6 Heart Rate 1: 92 bpm Height: 5'4" Respiratory Rate: 26 bpm SpO2: 94% Tempera ture: 36.7 (C) / 98.1 (F) Weight: 130 lbs 03/31/2018 Blood Pressure 1: 136/78 Code: 8480-6 BMI: 21.5 Code: 11675-3 Heart Rate 1: 76 bpm Height: 5'4" Respiratory Rate: 24 bpm SpO2: 95% Tempera ture: 36.8 (C) / 98.3 (F) Weight: 125 lbs 01/26/2018 Blood Pressure 1: 142/64 Code: 8480-6 BMI: 20.6 Code: 24875-8 Heart Rate 1: 90 bpm Height: 5'4" Respiratory Rate: 24 bpm SpO2: 92% Tempera ture: 36.3 (C) / 97.3 (F) Weight: 120 lbs 10/26/2017 Blood Pressure 1: 124/70 Code: 8480-6 BMI: 20.3 Code: 21152-2 Heart Rate 1: 76 bpm Height: 5'4" Respiratory Rate: 22 bpm SpO2: 94% Tempera ture: 36.7 (C) / 98.1 (F) Weight: 118 lbs 09/23/2017 Blood Pressure 1: 106/70 Code: 8480-6 BMI: 19.2 Code: 03329-9 Heart Rate 1: 76 bpm Height: 5'4" Respiratory Rate: 20 bpm SpO2: 94% Tempera ture: 36.8 (C) / 98.3 (F) Weight: 112 lbs 08/12/2017 Blood Pressure 1: 116/68 Code: 8480-6 BMI: 20.1 Code: 82540-0 Heart Rate 1: 80 bpm Height: 5'4" Respiratory Rate: 22 bpm SpO2: 95% Tempera ture: 36.8 (C) / 98.2 (F) Weight: 117 lbs 07/06/2017 Blood Pressure 1: 136/78 Code: 8480-6 BMI: 20.6 Code: 77099-4 Heart Rate 1: 76 bpm Height: 5'4" Respiratory Rate: 24 bpm SpO2: 96% Tempera ture: 36.8 (C) / 98.2 (F) Weight: 120 lbs 06/02/2017 Blood Pressure 1: 112/70 Code: 8480-6 Heart Rate 1: 92 bpm Height: 5'4" Respiratory Rate: 24 bpm SpO2: 95% Temperature: 37.0 (C) / 98.6 (F) Weight: 04/29/2017 Blood Pressure 1: 94/52 Code: 8480-6 BMI: 19.6 C ode: 19935-9 Heart Rate 1: 84 bpm Height: 5'4" [...] 92/58 Code: 8480-6 BMI: 19.2 C ode: 28698-8 Heart Rate 1: 84 bpm Height: 5'4" Respiratory Rate: 26 bpm SpO2: 95% Tempera ture: 36.7 (C) / 98.0 (F) Weight: 112 lbs 12/01/2016 Blood Pressure 1: 114/70 Code: 8480-6 BMI: 19.2 Code: 46991-2 Heart Rate 1: 96 bpm Height: 5'4" Respiratory Rate: 28 bpm SpO2: 93% Tempera ture: 38.3 (C) / 101.0 (F) Weight: 112 lbs 10/27/2016 Blood Pressure 1: 126/66 Code: 8480-6 BMI: 19.6 Code: 06417-5 Heart Rate 1: 92 bpm Height: 5'4" Respiratory Rate: 28 bpm SpO2: 90% Tempera ture: 36.8 (C) / 98.3 (F) Weight: 114 lbs 09/09/2016 Blood Pressure 1: 126/74 Code: 8480-6 Heart Rate 1: 104 bpm Height: 5'4" Respiratory Rate: 32 bpm SpO2: 88% Temperature: 37 .2 (C) / 99.0 (F) 08/26/2016 Blood Pressure 1: 134/82 Code: 8480-6 BMI: 22.0 Code: 76910-0 Heart Rate 1: 84 bpm Height: 5'4" Respiratory Rate: 24 bpm SpO2: 94% Tempera ture: 36.8 (C) / 98.3 (F) Weight: 128 lbs 05/21/2016 Blood Pressure 1: 142/80 Code: 8480-6 BMI: 21.6 Code: 69237-8 Heart Rate 1: 104 bpm Height: 5'4" Respiratory Rate: 22 bpm SpO2: 93% Tempera ture: 36.0 (C) / 96.8 (F) Weight: 126 lbs 03/25/2016 Blood Pressure 1: 126/62 Code: 8480-6 Heart Rate 1: 88 bpm Respiratory Rate: 20 bpm SpO2: 92% Temperature: 36.8 (C) / 98.3 (F) We ight: 130 lbs 01/23/2016 Blood Pressure 1: 146/82 Code: 8480-6 BMI: 24.1 Code: 84667-5 Heart Rate 1: 92 bpm Height: 5'3" Respiratory Rate: 22 bpm Temperature: 37 .1 (C) / 98.8 (F) Weight: 136 lbs 12/26/2015 Blood Pressure 1: 142/78 Code: 8480-6 BMI: 24.6 Code: 94591-9 Heart Rate 1: 78 bpm Height: 5'3" Respiratory Rate: 20 bpm Temperature: 36 .7 (C) / 98.1 (F) Weight: 139 lbs 12/03/2015 Blood Pressure 1: 126/60 Code: 8480-6 BMI: 24.6 Code: 68819-4 Heart Rate 1: 100 bpm Height: 5'3" Respiratory Rate: 28 bpm Temperature: 37 .6 (C) / 99.6 (F) Weight: 139 lbs 09/10/2015 Blood Pressure 1: 124/64 Code: 8480-6 BMI: 23.7 Code: 51526-5 Heart Rate 1: 88 bpm Height: 5'3" Respiratory Rate: 24 bpm SpO2: 95% Tempera ture: 36.4 (C) / 97.6 (F) Weight: 134 lbs 08/06/2015 Blood Pressure 1: 114/76 Code: 8480-6 BMI: 23.2 Code: 29671-1 Heart Rate 1: 88 bpm Height: 5'3" Respiratory Rate: 22 bpm Temperature: 36 .6 (C) / 97.9 (F) Weight: 131 lbs 07/18/2015 Blood Pressure 1: 144/78 Code: 8480-6 BMI: 23.7 Code: 05781-8 Heart Rate 1: 84 bpm Height: 5'3" Respiratory Rate: 20 bpm Temperature: 37 .2 (C) / 99.0 (F) Weight: 134 lbs 04/10/2015 Blood Pressure 1: 110/64 Code: 8480-6 Heart Rate 1: 80 bpm Height: Respiratory Rate: 20 bpm Temperature: 37.1 (C) / 98.8 (F) Weight: 03/05/2015 Blood Pressure 1: 136/80 Code: 8480-6 BMI: 23.9 Code: 58168-6 Heart Rate 1: 76 bpm Height: 5'3" Respiratory Rate: 24 bpm Temperature: 37 .0 (C) / 98.6 (F) Weight: 135 lbs 01/30/2015 Blood Pressure 1: 142/80 Code: 8480-6 BMI: 23.0 Code: 39417-3 Heart Rate 1: 96 bpm Height: 5'3" Respiratory Rate: 22 bpm Temperature: 36 .2 (C) / 97.2 (F) Weight: 130 lbs 01/02/2015 Blood Pressure 1: 124/70 Code: 8480-6 BMI: 23.4 Code: 09710-3 Heart Rate 1: 84 bpm Height: 5'3" Respiratory Rate: 24 bpm SpO2: 95% Tempera ture: 36.9 (C) / 98.5 (F) Weight: 132 lbs 10/03/2014 Blood Pressure 1: 106/68 Code: 8480-6 BMI: 22.5 Code: 08125-1 Heart Rate 1: 88 bpm Height: 5'3" Respiratory Rate: 24 bpm Temperature: 37 .0 (C) / 98.6 (F) Weight: 127 lbs 08/27/2014 Blood Pressure 1: 12468 Code: 8480-6 BMI: 21.1 Code: 06261-0 Heart Rate 1: 88 bpm Height: 5'3" [...] 1: 120/70 Code: 8480-6 BMI: 19.2 Code: 52431-0 Heart Rate 1: 70 bpm Height: 5'4" Respiratory Rate: 20 bpm Temperature: 36 .9 (C) / 98.4 (F) Weight: 112 lbs 06/28/2013 Blood Pressure 1: 102/68 Code: 8480-6 BMI: 19.6 Code: 98682-5 Heart Rate 1: 76 bpm Height: 5'4" Respiratory Rate: 20 bpm Temperature: 36 .8 (C) / 98.2 (F) Weight: 114 lbs 05/31/2013 Blood Pressure 1: 106/70 Code: 8480-6 BMI: 18.9 Code: 37889-7 Heart Rate 1: 100 bpm Height: 5'4" Respiratory Rate: 20 bpm Temperature: 36 .4 (C) / 97.6 (F) Weight: 110 lbs 05/03/2013 Blood Pressure 1: 126/70 Code: 8480-6 BMI: 19.1 Code: 95847-6 Heart Rate 1: 88 bpm Height: 5'4" Respiratory Rate: 20 bpm Temperature: 37 .1 (C) / 98.8 (F) Weight: 111 lbs 04/25/2013 Blood Pressure 1: 114/68 Code: 8480-6 BMI: 19.4 Code: 38336-3 Heart Rate 1: 92 bpm Height: 5'4" Respiratory Rate: 24 bpm SpO2: 96% Tempera ture: 37.7 (C) / 99.8 (F) Weight: 113 lbs 03/08/2013 Blood Pressure 1: 94/68 Code: 8480-6 BMI: 21.3 C ode: 26251-0 Heart Rate 1: 88 bpm Height: 5'4" Respiratory Rate: 24 bpm Temperature: 37 .0 (C) / 98.6 (F) Weight: 124 lbs 02/07/2013 Blood Pressure 1: 106/64 Code: 8480-6 BMI: 21.8 Code: 07490-6 Heart Rate 1: 84 bpm Height: 5'4" Respiratory Rate: 22 bpm Temperature: 36 .8 (C) / 98.2 (F) Weight: 127 lbs 01/10/2013 Blood Pressure 1: 122/68 Code: 8480-6 BMI: 21.6 Code: 39499-4 Heart Rate 1: 94 bpm Height: 5'4" SpO2: 94% Temperature: 36.7 (C) / 98.1 (F) Weight: 126 lbs 09/28/2012 Blood Pressure 1: 124/78 Code: 8480-6 BMI: 24.9 Code: 80390-9 Heart Rate 1: 92 bpm Height: 5'4" Respiratory Rate: 20 bpm Temperature: 36 .7 (C) / 98.1 (F) Weight: 145 lbs 06/28/2012 Blood Pressure 1: 134/80 Code: 8480-6 BMI: 24.9 Code: 43911-6 Heart Rate 1: 76 bpm Height: 5'4" Respiratory Rate: 20 bpm Temperature: 36 .8 (C) / 98.2 (F) Weight: 145 lbs 05/03/2012 Blood Pressure 1: 108/62 Code: 8480-6 BMI: 25.6 Code: 80433-8 Heart Rate 1: 88 bpm Height: 5'4" Temperature: 36.2 (C) / 97.2 (F) Weight: 149 lbs 03/01/2012 Blood Pressure 1: 124/66 Code: 8480-6 BMI: 25.1 Code: 52077-8 Heart Rate 1: 76 bpm Height: 5'4" Respiratory Rate: 20 bpm Temperature: 36 .6 (C) / 97.9 (F) Weight: 146 lbs 01/26/2012 Blood Pressure 1: 118/82 Code: 8480-6 BMI: 25.1 Code: 03186-6 Heart Rate 1: 74 bpm Height: 5'4" Temperature: 36.8 (C) / 98.2 (F) Weight: 146 lbs 11/03/2011 Blood Pressure 1: 126/80 Code: 8480-6 BMI: 27.3 Code: 23477-5 Heart Rate 1: 72 bpm Height: 5'4" [...] Notes follow up 11/29/2019 Discuss pneumonia [facility] [...] prozac Encounters Encounter Performer Location Codes Date ([id number]) OFFICE/OUTPATIENT VISIT EST Diagnosis: Chronic pain syndrome[ICD10: G89.4] Diagnosis: Localized edema[ICD10: R60.0] Diagnosis: Chronic obstructive pulmonary disease, unspecified[ICD10: J44.9] Diagnosis: Other fatigue[ICD10: R53.83] Diagnosis: Muscle weakness (generalized)[ICD10: M62.81] Diagnosis: Spinal stenosis, lumbar region with neurogenic claudication[ICD10: M48.062] Vika Bello [id number] CPT-4: 21299 11/29/2019 ([id number]) OFFICE/OUTPATIENT VISIT EST Diagnosis: Chronic pain syndrome[ICD10: G89.4] Diagnosis: Lumbar degenerative disc disease[ICD10: M51.36] Diagnosis: Muscle spasm[ICD10: M62.838] Diagnosis: Spinal stenosis, lumbar region with neurogenic claudication[ICD10: M48.062] Diagnosis: Spondylosis without myelopathy or radiculopathy, 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] Vika Bello [employer] CPT-4: 54961 10/30/2019 ([id number]) OFFICE/OUTPATIENT VISIT EST Diagnosis: Chronic pain syndrome[ICD10: G89.4] Vika Bello [employer] CPT-4: 77007 10/25/2019 ([id number]) OFFICE/OUTPATIENT VISIT EST Diagnosis: Epigastric pain[ICD10: R10.13]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
--- OUTSIDE RECORDS SUMMARY | 2020-04-24 23:01 | XMS REPORT | CCD ---
Author Author Yana Renteria D.O. Organization [facility] Address [address] [place] [address] Phone Care Team Providers Care Living Skills Advisor Name Role Phone Vika Renteria D.O., PP Unavailable CCM Unavailable Summary Purpose Interface Exchange Insurance Providers Payer name Policy type / Coverage type Covered republican ID Effective Begin Date Effective End Date [employer] [facility] [place] Medicaid [id number] 2018 U nknown Family History Family History data not found Social History Social History Element Codes Description Effective Dates Marital status Unknown 06/28/[address]: [id number] Currently smokes tobacco 05/2013 Allergies, Adverse Reactions, [...] Fill Instructions cyclobenzaprine 10 mg tablet RxNorm: 587111 TAKE ONE TA BLET BY MOUTH THREE TIMES A DAY NEEDED 01/31/2020 No Stop Date Active metformin 500 mg tablet RxNorm: 915824 1 Tablet(s) Oral QD 01/31/20 20 04/29/2020 Active gabapentin 300 mg capsule RxNorm: 086592 TAKE ONE CAPSULE BY [facility] TWICE A DAY 01/16/2020 No Stop Date Active potassium chloride ER 20 mEq tablet,extended release RxNorm: 644619 TAKE ONE TABLET BY MOUTH DAILY 01/08/2020 07/05/2020 Active ProAir HFA 90 mcg/actuation aerosol inhaler RxNorm: 877425 INHALE ONE PUFF BY MOUTH EVERY 4 HOURS FOR WHEEZING OR FOR SHORTNESS OF BREATH 01/04/2020 No Stop Date Active metformin 500 mg tablet RxNorm: 285041 1 Tablet(s) Oral QD 01/04/20 20 01/30/2020 Inactive MS Contin 200 mg tablet,extended release RxNorm: 503069 1 Tablet(s) Oral two times a day 01/02/2020 01/31/2020 Inactive Pulmicort 1 mg/2 mL suspension for nebulization RxNorm: 6168 19 USE ONE VIAL VIA NEBULIZER BY MOUTH TWICE A DAY 12/21/2019 No Stop Date Active furosemide 40 mg tablet RxNorm: 833589 TAKE ONE TABLET BY MOUTH EVERY MORNING NEEDED 12/20/2019 No Stop Date Active levothyroxine 25 mcg tablet RxNorm: 331719 TAKE ONE TAB LET BY MOUTH EVERY MORNING 12/20/2019 No Stop Date Active MS Contin 200 mg tablet,extended release RxNorm: 619597 1 Tablet(s) Oral two times a day 12/05/2019 01/01/2020 Inactive Medrol (Aníbal) 4 mg tablets in a dose pack RxNorm: 604108 6 Tablet(s) Oral QD --then as directed 11/30/2019 12/05/2019 Inactive MS Contin 200 mg tablet,extended release RxNorm: 281465 1 Tablet(s) Oral two times a day 11/29/2019 12/04/2019 Inactive cyclobenzaprine 10 mg tablet RxNorm: 543476 TAKE ONE TA BLET BY MOUTH THREE TIMES A DAY NEEDED 11/21/2019 01/30/2020 Inactive MS Contin 200 mg tablet,extended release RxNorm: 919874 1 Tablet(s) Oral two times a day replaces 100mg dose 11/03/2019 11/02/2019 Inactive MS Contin 200 mg tablet,extended release RxNorm: 677068 1 Tablet(s) Oral two times a day replaces 100mg dose 11/03/2019 11/29/2019 Inactive ferrous sulfate 325 mg (65 mg iron) tablet RxNorm: 779348 1 Tab let(s) Oral QD 10/30/2019 No Stop Date Active MS Contin 100 mg tablet,extended release RxNorm: 953867 1 Table t(s) Oral QD 10/30/2019 10/29/2019 Inactive MS Contin 100 mg tablet,extended release RxNorm: 641323 1 Table t(s) Oral QD 10/30/2019 11/02/2019 Inactive Relistor 150 mg tablet RxNorm: 7480267 TAKE THREE TABLETS BY [facility]ENOIT TH DAILY 10/25/2019 No Stop Date Active pantoprazole 40 mg tablet,delayed release RxNorm: 527090 1 Tabl et(s) Oral QD 10/25/2019 No Stop Date Active Minipress 2 mg capsule RxNorm: 406027 1 Capsule(s) Oral QAM and 3 at bedtime 10/25/2019 No Stop Date Active Lancets, Super Thin RxNorm: 1 Unit Dose Miscellaneous QD 9 11/27/2020 Active Cymbalta 60 mg capsule,delayed release RxNorm: 260805 1 Capsule (s) Oral QAM 10/25/2019 No Stop Date Active Cymbalta 30 mg capsule,delayed release RxNorm: 251875 1 Capsule (s) Oral QAM 10/25/2019 No Stop Date Active oxycodone 15 mg tablet RxNorm: 8956048 1 Tablet(s) Oral four times a day as needed for pain 10/25/2019 11/28/2019 Inactive metformin 500 mg tablet RxNorm: 987120 1 Tablet(s) Oral QD 10/25/20 19 01/03/2020 Inactive levothyroxine 25 mcg tablet RxNorm: 311088 1 Tablet(s) Oral QAM 02/201912/19/2019 Inactive levothyroxine 25 mcg tablet RxNorm: 643599 1 Tablet(s) Oral QAM 02/201910/24/2019 Inactive MS Contin 100 mg tablet,extended release RxNorm: 779867 1 Tablet(s) Oral two times a day replaces fentanyl 10/25/2019 10/25/2019 Inactive Premarin 0.45 mg tablet RxNorm: 045390 TAKE ONE TABLET BY MOUTH DAILY 10/24/2019 No Stop Date Active Duragesic 100 mcg/hr transdermal patch RxNorm: 007972 2 Application TD Q48H for pain 10/18/2019 10/24/2019 Inactive gabapentin 300 mg capsule RxNorm: 156824 TAKE ONE CAPSULE BY [facility] TWICE A DAY 10/16/2019 01/15/2020 Inactive cyclobenzaprine 10 mg tablet RxNorm: 303602 TAKE ONE TA BLET BY MOUTH THREE TIMES A DAY NEEDED 09/27/2019 11/20/2019 Inactive Relistor 150 mg tablet RxNorm: 5946182 TAKE THREE TABLETS BY [facility]ENO[facility] DAILY 09/25/2019 10/24/2019 Inactive ProAir HFA 90 mcg/actuation aerosol inhaler RxNorm: 572814 INHALE ONE PUFF BY MOUTH EVERY 4 HOURS FOR WHEEZING OR FOR SHORTNESS OF BREATH 09/25/2019 01/03/2020 Inactive furosemide 40 mg tablet RxNorm: 214892 1 Tablet(s) Oral QAM as needed 09/25/2019 09/25/2019 Inactive oxycodone 15 mg tablet RxNorm: 8181925 1 Tablet(s) PO QID as nee ded for pain 09/21/2019 10/24/2019 Inactive Duragesic 100 mcg/hr transdermal patch RxNorm: 356209 2 Application TD Q48H for pain 09/19/2019 10/17/2019 Inactive Daliresp 500 mcg tablet RxNorm: 7605929 1 Tablet(s) Oral QD 019 03/08/2020 Active Relistor 150 mg tablet RxNorm: 6709332 TAKE THREE TABLETS BY [facility] DAILY 07/25/2019 07/30/2019 Inactive cyclobenzaprine 10 mg tablet RxNorm: 864472 TAKE ONE TA BLET BY MOUTH THREE TIMES A DAY NEEDED 07/25/2019 09/22/2019 Inactive potassium chloride ER 20 mEq tablet,extended release RxNorm: 859624 TAKE ONE TABLET BY MOUTH DAILY 07/25/2019 01/07/2020 Inactive fluoxetine 40 mg capsule RxNorm: 063727 TAKE ONE CAPSULE BY BENO[facility] EVERY MORNING 07/11/2019 10/24/2019 Inactive Medrol (Aníbal) 4 mg tablets in a dose pack RxNorm: 465226 6 Tablet(s) PO QD --then as directed 07/10/2019 07/15/2019 Inactive omeprazole 40 mg capsule,delayed release RxNorm: 963217 1 Capsule(s) PO QD for stomach TAKE ONE CAPSULE BY MOUTH DAILY 07/10/2019 10/24/2019 Inactive Augmentin 875 mg-125 mg tablet RxNorm: 044276 1 Tablet(s) PO BID 07/16/2019 Inactive Trulicity 0.75 mg/0.5 mL subcutaneous pen injector RxNorm: 1 272883 0.75 Milliliter(s) SQ weekly 07/05/2019 10/24/2019 Inactive Compazine 10 mg tablet RxNorm: 363552 TAKE ONE TABLET B Y MOUTH FOUR TIMES A DAY NEEDED FOR NAUSEA 06/20/2019 07/19/2019 Inactive ProAir HFA 90 mcg/actuation aerosol inhaler RxNorm: 782490 INHALE ONE PUFF BY MOUTH EVERY 4 HOURS FOR WHEEZING OR FOR SHORTNESS OF BREATH 06/20/2019 06/23/2019 Inactive Daliresp 500 mcg tablet RxNorm: 0549433 TAKE ONE TABLET BY MOUTH DAILY 06/12/2019 09/10/2019 Inactive oklxyudl-zddiigkpo-jnxzqoisr 3.5 mg/mL-10,000 unit/mL- 1 % ear solution RxNorm: 317714 4 Drop(s) otic (ear) TID to left ear 06/05/2019 10/24/2019 Inac tive furosemide 40 mg tablet RxNorm: 205212 TAKE ONE TABLET BY MOUTH EVERY MORNING 05/26/2019 07/09/2019 Inactive Duragesic 100 mcg/hr transdermal patch RxNorm: 843180 2 Application TD Q48H for pain 05/16/2019 06/14/2019 Inactive oxycodone 15 mg tablet RxNorm: 9616566 1 Tablet(s) PO QID as nee ded for pain 05/10/2019 09/20/2019 Inactive doxycycline hyclate 100 mg capsule RxNorm: 2832019 1 Capsule(s) PO BID 05/03/2019 05/12/2019 Inactive prednisone 20 mg tablet RxNorm: 048640 1 Tablet(s) PO T ID for 3 days then 1 po BID for 3 days then one daily for 3 days 05/03/2019 07/11/2019 Inactiv e Ozempic 0.25 mg or 0.5 mg (2 mg/1.5 mL) subcutaneous p en injector RxNorm: 7881078 0.5 Milligram(s) SQ QW 05/03/2019 07/09/2019 Inactive fluconazole 100 mg tablet RxNorm: 693729 1 Tablet(s) PO QD 05/03/2005/07/2019 Inactive Premarin 0.45 mg tablet RxNorm: 896033 TAKE ONE TABLET BY MOUTH DAILY 05/03/2019 10/23/2019 Inactive potassium chloride ER 20 mEq tablet,extended release RxNorm: 198402 1 Tablet(s) PO QD 04/27/2019 07/25/2019 Inactive potassium chloride ER 20 mEq tablet,extended release RxNorm: 770562 1 Tablet(s) PO QD 04/25/2019 04/26/2019 Inactive Compazine 10 mg tablet RxNorm: 779259 1 Tablet(s) PO QID as nee ded for nausea 04/25/2019 05/04/2019 Inactive ProAir HFA 90 mcg/actuation aerosol inhaler RxNorm: 409215 INHALE ONE PUFF BY MOUTH EVERY 4 HOURS FOR WHEEZING OR FOR SHORTNESS OF BREATH 04/12/2019 06/10/2019 Inactive Medrol (Aníbal) 4 mg tablets in a dose pack RxNorm: 641017 6 Tablet(s) PO QD --then as directed 04/11/2019 04/16/2019 Inactive Symbicort 160 mcg-4.5 mcg/actuation HFA aerosol inhaler RxNo rm: 7421948 2 Puff(s) INH BID 04/10/2019 10/06/2019 Inactive levothyroxine 50 mcg tablet RxNorm: 272928 1 Tablet(s) PO QD 201810/24/2019 Inactive gabapentin 300 mg capsule RxNorm: 172319 1 Capsule(s) PO BID 201810/02/2019 Inactive Symbicort 160 mcg-4.5 mcg/actuation HFA aerosol inhaler RxNo rm: 3756470 2 Puff(s) INH BID 04/06/2019 04/09/2019 Inactive oxycodone 15 mg tablet RxNorm: 5059929 1 Tablet(s) PO QID as nee ded for pain 04/05/2019 05/09/2019 Inactive levothyroxine 50 mcg tablet RxNorm: 511299 1 Tablet(s) PO QD 201804/09/2019 Inactive furosemide 40 mg tablet RxNorm: 347328 TAKE ONE TABLET BY MOUTH EVERY MORNING 03/21/2019 04/19/2019 Inactive levothyroxine 50 mcg tablet RxNorm: 958232 TAKE ONE TABLET BY M OUTH DAILY 03/21/2019 03/27/2019 Inactive Duragesic 100 mcg/hr transdermal patch RxNorm: 353763 2 Application TD Q48H for pain 03/13/2019 04/11/2019 Inactive oxycodone 15 mg tablet RxNorm: 8658144 1 Tablet(s) PO QID as nee ded for pain 03/06/2019 04/04/2019 Inactive Relistor 150 mg tablet RxNorm: 9585620 3 Tablet(s) PO QD 02/28/2019 0 05/28/2019 Inactive cyclobenzaprine 10 mg tablet RxNorm: 874689 1 Tablet(s) PO TID as needed 02/28/2019 05/28/2019 Inactive phentermine 37.5 mg tablet RxNorm: 582562 1 Tablet(s) PO QAM 201803/15/2019 Inactive Duragesic 100 mcg/hr transdermal patch RxNorm: 640451 2 Application TD Q48H for pain 02/09/2019 03/10/2019 Inactive Daliresp 500 mcg tablet RxNorm: 4600466 TAKE ONE TABLET BY MOUTH DAILY 01/31/2019 05/30/2019 Inactive Premarin 0.45 mg tablet RxNorm: 366300 1 Tablet(s) PO QD 01/31/2019 0 04/30/2019 Inactive fluoxetine 40 mg capsule RxNorm: 906158 Capsule(s) TAKE ONE CAPSULE BY MOUTH EVERY MORNING 01/31/2019 04/30/2019 Inactive levothyroxine 50 mcg tablet RxNorm: 263134 1 Tablet(s) PO QD 201804/10/2019 Inactive follow up in 3 weeks levothyroxine 50 mcg tablet RxNorm: 208733 1 Tablet(s) PO QD 201801/25/2019 Inactive follow up in 3 weeks potassium chloride ER 20 mEq tablet,extended release RxNorm: 419301 2 Tablet(s) PO BID 01/23/2019 01/08/2020 Inactive Synthroid 50 mcg tablet RxNorm: 289948 TAKE ONE TABLET BY MOUTH DAILY 01/16/2019 10/24/2019 Inactive potassium chloride ER 20 mEq tablet,extended release RxNorm: 692229 2 Tablet(s) PO BID 01/04/2019 01/22/2019 Inactive ProAir HFA 90 mcg/actuation aerosol inhaler RxNorm: 361399 INHALE ONE PUFF BY MOUTH EVERY 4 HOURS FOR WHEEZING OR SHORTNESS OF BREATH 01/04/201902/20 Inactive Request already responded to by other me ans (e.g. phone or fax) ProAir HFA 90 mcg/actuation aerosol inhaler RxNorm: 7294426 INHALE ONE PUFF BY MOUTH EVERY 4 HOURS FOR WHEEZING OR SHORTNESS OF BREATH 01/02/201912/23 Inactive gabapentin 300 mg capsule RxNorm: 370859 TAKE ONE CAPSULE BY MO UTH TWICE A DAY 12/30/2018 04/06/2019 Inactive furosemide 40 mg tablet RxNorm: 520153 1 Tablet(s) PO QAM 12/26/2018 02/23/2019 Inactive Compazine 10 mg tablet RxNorm: 467998 1 Tablet(s) PO QID as nee ded for nausea 12/07/2018 12/16/2018 Inactive metformin ER 500 mg tablet,extended release 24 hr RxNorm: 86 0975 TAKE ONE TABLET BY MOUTH DAILY 12/05/2018 01/31/2020 Inactive metolazone 2.5 mg tablet RxNorm: 090555 TAKE ONE TABLET BY MOUT H EVERY MORNING 12/05/2018 01/03/2019 Inactive Synthroid 50 mcg tablet RxNorm: 911397 1 Tablet(s) PO QD 11/25/2018 0 01/03/2019 Inactive DC any other synthroid strengths. Should be 50mcg only cyclobenzaprine 10 mg tablet RxNorm: 106577 TAKE ONE TA BLET BY MOUTH THREE TIMES A DAY NEEDED 11/09/2018 02/06/2019 Inactive metolazone 2.5 mg tablet RxNorm: 106540 1 Tablet(s) PO QAM repl aces 5mg dose 11/02/2018 12/01/2018 Inactive potassium chloride ER 20 mEq tablet,extended release RxNorm: 765799 2 Tablet(s) PO QD 2018 01/02/2019 Inactive Compazine 10 mg tablet RxNorm: 134467 1 Tablet(s) PO QID as nee ded for nausea 10/18/2018 12/07/2018 Inactive furosemide 40 mg tablet RxNorm: 837286 1 Tablet(s) PO QAM 10/12/2018 12/10/2018 Inactive ondansetron 8 mg disintegrating tablet RxNorm: 856784 1 Tablet(s) PO Q6H as needed 10/11/2018 10/17/2018 Inactive scopolamine 1 mg over 3 days transdermal patch RxNorm: 16173 2 1 Application TD behind ear. Take off after three days 10/11/2018 01/02/2019 Inactive furosemide 40 mg tablet RxNorm: 529539 1 Tablet(s) PO QAM 10/10/2018 12/26/2018 Inactive metolazone 5 mg tablet RxNorm: 081677 1 Tablet(s) PO QAM 10/06/2018 1 01/03/2018 Inactive metolazone 5 mg tablet RxNorm: 408874 1 Tablet(s) PO QAM 10/06/2018 1 12/05/2017 Inactive Xtampza ER 36 mg capsule sprinkle RxNorm: 2759416 1 Capsule(s) P O BID 10/05/2018 01/02/2019 Inactive Xtampza ER 36 mg capsule sprinkle RxNorm: 8033655 1 Capsule(s) P O BID 10/05/2018 02/12/2019 Inactive omeprazole 40 mg capsule,delayed release RxNorm: 506876 TAKE ONE CAPSULE BY MOUTH DAILY 10/03/2018 12/31/2018 Inactive Duragesic 100 mcg/hr transdermal patch RxNorm: 376022 2 Application TD Q48H for pain 09/30/2018 10/29/2018 Inactive Synthroid 50 mcg tablet RxNorm: 668900 1 Tablet(s) PO QD 09/29/2018 0 11/25/2018 Inactive DC any other synthroid strengths. Should be 50mcg only Synthroid 50 mcg tablet RxNorm: 100252 1 Tablet(s) PO QD 09/29/2018 1 11/28/2017 Inactive furosemide 40 mg tablet RxNorm: 422827 2 Tablet(s) PO Q AM for 1 week then every other day for 2 weeks 09/27/2018 10/12/2018 Inactive fluoxetine 40 mg capsule RxNorm: 696657 2 Capsule(s) PO QD 09/27/20 18 10/17/2018 Inactive potassium chloride ER 20 mEq tablet,extended release RxNorm: 359584 2 Tablet(s) PO QD for 1 week then every other day for 2 weeks 09/27/2018 2018 Inactive ProAir HFA 90 mcg/actuation aerosol inhaler RxNorm: 5368118 INHALE ONE PUFF BY MOUTH EVERY 4 HOURS FOR WHEEZING OR SHORTNESS OF BREATH 09/26/201811/23 Inactive Synthroid 75 mcg tablet RxNorm: 091005 1 Tablet(s) PO QD 09/09/2018 1 Inactive Synthroid 75 mcg tablet RxNorm: 973403 1 Tablet(s) PO QD 09/09/2018 1 11/28/2017 Inactive furosemide 40 mg tablet RxNorm: 130883 1 Tablet(s) PO QD 09/06/2018 1 Inactive potassium chloride ER 20 mEq tablet,extended release RxNorm: 809857 1 Tablet(s) PO QD 09/06/2018 09/19/2018 Inactive Duragesic 100 mcg/hr transdermal patch RxNorm: 058186 2 Application TD Q48H for pain 08/30/2018 09/28/2018 Inactive gabapentin 300 mg capsule RxNorm: 047289 TAKE ONE CAPSULE BY MO [facility] TWICE A DAY 08/23/2018 12/20/2018 Inactive Daliresp 500 mcg tablet RxNorm: 6554518 TAKE ONE TABLET BY MOUTH DAILY 08/23/2018 01/19/2019 Inactive Pulmicort 1 mg/2 mL suspension for nebulization RxNorm: 6168 19 USE ONE VIAL VIA NEBULIZER BY MOUTH TWICE A DAY 08/23/2018 07/11/2019 Inactive Synthroid 88 mcg tablet RxNorm: 482190 1 Tablet(s) PO QD 08/19/2018 1 Inactive Medrol (Aníbal) 4 mg tablets in a dose pack RxNorm: 590918 Tablet(s) PO take as directed 08/16/2018 09/05/2018 Inactive Relistor 150 mg tablet RxNorm: 3138278 3 Tablet(s) PO QD 08/16/2018 1 Inactive Zithromax Z-Aníbal 250 mg tablet RxNorm: 035449 Tablet(s) PO take as directed 08/16/2018 09/05/2018 Inactive cyclobenzaprine 10 mg tablet RxNorm: 831806 1 Tablet(s) PO TID as needed 08/16/2018 11/08/2018 Inactive Synthroid 88 mcg tablet RxNorm: 128063 1 Tablet(s) PO Q D NEEDS UPDATED LABS BEFORE FURTHER REFILLS 08/08/2018 08/19/2018 Inactive Premarin 0.45 mg tablet RxNorm: 236475 1 Tablet(s) PO QD 08/03/2018 0 01/31/2019 Inactive fluoxetine 20 mg capsule RxNorm: 374643 TAKE ONE CAPSULE BY BENOIT TH DAILY 08/03/2018 09/26/2018 Inactive Xtampza ER 36 mg capsule sprinkle RxNorm: 9709261 1 Capsule(s) P O BID 08/03/2018 09/01/2018 Inactive metformin ER 500 mg tablet,extended release 24 hr RxNorm: 86 0975 1 Tablet(s) PO QD 08/03/2018 10/31/2018 Inactive Symbicort 160 mcg-4.5 mcg/actuation HFA aerosol inhaler RxNo rm: 8910356 2 Puff(s) INH BID 08/03/2018 01/29/2019 Inactive Duragesic 100 mcg/hr transdermal patch RxNorm: 876153 2 Application TD Q48H for pain 07/29/2018 08/27/2018 Inactive ProAir HFA 90 mcg/actuation aerosol inhaler RxNorm: 181877 INHALE TWO PUFFS BY MOUTH EVERY 4 HOURS FOR WHEEZING OR SHORTNESS OF BREATH 07/27/201802/2018 Inactive Relistor 150 mg tablet RxNorm: 2026073 3 Tablet(s) PO QD 07/20/2018 0 08/15/2018 Inactive metformin ER 500 mg tablet,extended release 24 hr RxNorm: 86 0975 TAKE ONE TABLET BY MOUTH DAILY 07/08/2018 08/02/2018 Inactive fluoxetine 40 mg capsule RxNorm: 361580 TAKE ONE CAPSULE BY BENOIT TH EVERY MORNING 07/08/2018 10/05/2018 Inactive Xtampza ER 18 mg capsule sprinkle RxNorm: 1548528 1 Capsule(s) P O BID 07/08/2018 08/02/2018 Inactive Relistor 150 mg tablet RxNorm: 8142545 3 Tablet(s) PO QD 07/08/2018 0 07/12/2018 Inactive Synthroid 88 mcg tablet RxNorm: 875512 1 Tablet(s) PO Q D NEEDS UPDATED LABS BEFORE FURTHER REFILLS 06/23/2018 07/07/2018 Inactive fluoxetine 40 mg capsule RxNorm: 616944 TAKE ONE CAPSULE BY BENOIT TH EVERY MORNING 06/15/2018 09/26/2018 Inactive orphenadrine citrate ER 100 mg tablet,extended release RxNor m: 779482 TAKE ONE TABLET BY MOUTH TWICE A DAY FOR MUSCLE SPASM 06/15/2018 08/15/2018 Renu ctive Duragesic 100 mcg/hr transdermal patch RxNorm: 770774 2 Application TD Q48H for pain 05/30/2018 06/28/2018 Inactive ProAir HFA 90 mcg/actuation aerosol inhaler RxNorm: 976518 INHALE TWO PUFFS BY MOUTH EVERY 4 HOURS FOR WHEEZING OR SHORTNESS OF BREATH 05/19/201803/2018 Inactive Chantix Continuing Month Box 1 mg tablet RxNorm: 849829 TAKE ONE TABLET BY MOUTH TWICE A DAY 05/19/2018 08/15/2018 Inactive oxycodone 10 mg tablet RxNorm: 8486387 1-2 Tablet(s) PO QID as n eeded for pain 05/19/2018 07/07/2018 Inactive gabapentin 300 mg capsule RxNorm: 676491 TAKE ONE CAPSULE BY MO UTH TWICE A DAY 05/18/2018 07/16/2018 Inactive ProAir HFA 90 mcg/actuation aerosol inhaler RxNorm: 152042 INHALE TWO PUFFS BY MOUTH EVERY 4 HOURS FOR WHEEZING OR SHORTNESS OF BREATH 05/04/201804/23 Inactive Augmentin 500 mg-125 mg tablet RxNorm: 740009 1 Tablet(s) PO BID 05/03/2018 Inactive oxycodone 10 mg tablet RxNorm: 9575000 1-2 Tablet(s) PO QID as n eeded for pain 04/21/2018 05/18/2018 Inactive Synthroid 88 mcg tablet RxNorm: 846129 1 Tablet(s) PO QD 04/15/2018 0 08/08/2018 Inactive Symbicort 160 mcg-4.5 mcg/actuation HFA aerosol inhaler RxNo rm: 8863280 2 Puff(s) INH BID 04/15/2018 04/10/2019 Inactive Premarin 0.45 mg tablet RxNorm: 805573 1 Tablet(s) PO QD 04/15/2018 0 08/03/2018 Inactive ProAir HFA 90 mcg/actuation aerosol inhaler RxNorm: 965343 2 Puff(s) INH Q4H prn for wheezing or shortness of breath 04/15/2018 05/03/2018 Inactive metformin ER 500 mg tablet,extended release 24 hr RxNorm: 86 0975 1 Tablet(s) PO QD 04/11/2018 07/07/2018 Inactive omeprazole 40 mg capsule,delayed release RxNorm: 934382 TAKE ONE CAPSULE BY MOUTH DAILY 04/10/2018 06/08/2018 Inactive Synthroid 88 mcg tablet RxNorm: 040540 1 Tablet(s) PO QD 04/04/2018 0 04/14/2018 Inactive Synthroid 88 mcg tablet RxNorm: 966200 1 Tablet(s) PO QD 04/04/2018 0 04/03/2018 Inactive orphenadrine citrate ER 100 mg tablet,extended release RxNor m: 896847 1 Tablet(s) PO BID for muscle spasm 04/04/2018 05/03/2018 Inactive metformin ER 500 mg tablet,extended release 24 hr RxNorm: 86 0975 1 Tablet(s) PO QD NEEDS UPDATED LABS 03/31/2018 04/11/2018 Inactive doxycycline hyclate 100 mg capsule RxNorm: 1278669 1 Capsule(s) PO BID 03/31/2018 04/09/2018 Inactive prednisone 20 mg tablet RxNorm: 427657 3 Tablet(s) PO T ID for 3 days then 1 po BID for 3 days then one daily for 3 days 03/31/2018 07/06/2018 Inactiv roxie Chantix Continuing Month Box 1 mg tablet RxNorm: 053764 TAKE ONE TABLET BY MOUTH TWICE A DAY 03/25/2018 03/30/2018 Inactive oxycodone 10 mg tablet RxNorm: 5246582 1-2 Tablet(s) PO QID as n eeded for pain 03/21/2018 04/20/2018 Inactive Daliresp 500 mcg tablet RxNorm: 4217201 1 Tablet(s) PO QD 03/15/2018 08/22/2018 Inactive metformin ER 500 mg tablet,extended release 24 hr RxNorm: 86 0975 1 Tablet(s) PO QD NEEDS UPDATED LABS 03/14/2018 03/31/2018 Inactive nystatin 100,000 unit/mL oral suspension RxNorm: 004941 5 Chio liter(s) PO QID 03/02/2018 03/15/2018 Inactive nystatin 100,000 unit/mL oral suspension RxNorm: 886322 5 Chio liter(s) PO QID 03/02/2018 03/01/2018 Inactive oxycodone 10 mg tablet RxNorm: 7814808 1-2 Tablet(s) PO QID as n eeded for pain 02/16/2018 03/20/2018 Inactive fluoxetine 20 mg capsule RxNorm: 658844 1 Capsule(s) PO QD 02/15/20 18 08/02/2018 Inactive metformin ER 500 mg tablet,extended release 24 hr RxNorm: 86 0975 1 Tablet(s) PO QD Needs updated labs 02/14/2018 03/14/2018 Inactive cefdinir 300 mg capsule RxNorm: 921286 1 Capsule(s) PO BID 01/27/20 18 02/04/2018 Inactive orphenadrine citrate ER 100 mg tablet,extended release RxNor m: 631541 1 Tablet(s) PO BID for muscle spasm 01/26/2018 04/04/2018 Inactive gabapentin 300 mg capsule RxNorm: 964885 1 Capsule(s) PO BID 201704/17/2018 Inactive oxycodone 10 mg tablet RxNorm: 0342874 1-2 Tablet(s) PO QID as n eeded for pain 01/17/2018 02/15/2018 Inactive Duragesic 100 mcg/hr transdermal patch RxNorm: 729606 2 Application TD Q48H for pain 01/17/2018 02/15/2018 Inactive gabapentin 300 mg capsule RxNorm: 588160 TAKE ONE CAPSULE BY MO UTH TWICE A DAY 12/20/2017 01/18/2018 Inactive fluoxetine 40 mg capsule RxNorm: 976945 TAKE ONE CAPSULE BY BENOIT TH EVERY MORNING 12/15/2017 03/14/2018 Inactive OneTouch Ultra Test strips RxNorm: TEST DAILY 11/04/2017 02/01/2018 Inactive gabapentin 300 mg capsule RxNorm: 593004 1 Capsule(s) P O TID replaces BID dosing 10/26/2017 02/22/2018 Inactive oxycodone 10 mg tablet RxNorm: 3232140 1-2 Tablet(s) PO QID as n eeded for pain 10/18/2017 01/16/2018 Inactive Duragesic 100 mcg/hr transdermal patch RxNorm: 722418 2 Application TD Q48H for pain 10/18/2017 11/16/2017 Inactive gabapentin 300 mg capsule RxNorm: 983584 1 Capsule(s) PO BID 201610/25/2017 Inactive Abilify 5 mg tablet RxNorm: 798629 1 Tablet(s) PO QAM 09/23/201702/2017 Inactive gabapentin 300 mg capsule RxNorm: 091659 1 Capsule(s) PO BID 201610/17/2017 Inactive oxycodone 10 mg tablet RxNorm: 1578623 1-2 Tablet(s) PO QID as n eeded for pain 09/15/2017 10/17/2017 Inactive Duragesic 100 mcg/hr transdermal patch RxNorm: 218916 2 Application TD Q48H for pain 09/15/2017 10/14/2017 Inactive Duragesic 100 mcg/hr transdermal patch RxNorm: 754356 2 Application TD Q48H for pain 09/15/2017 10/24/2019 Inactive oxycodone 10 mg tablet RxNorm: 4627103 1-2 Tablet(s) PO QID as n eeded for pain 09/15/2017 08/15/2018 Inactive Daliresp 500 mcg tablet RxNorm: 3441406 1 Tablet(s) PO QD 09/06/2017 03/15/2018 Inactive Ventolin HFA 90 mcg/actuation aerosol inhaler RxNorm: 574791 2 Puff(s) INH Q4H as needed 09/02/2017 05/19/2018 Inactive oxycodone 10 mg tablet RxNorm: 3716857 1-2 Tablet(s) PO QID as n eeded for pain 08/17/2017 09/14/2017 Inactive Duragesic 100 mcg/hr transdermal patch RxNorm: 450357 2 Application TD Q48H for pain 08/17/2017 09/14/2017 Inactive fluoxetine 40 mg capsule RxNorm: 654315 Capsule(s) TAKE ONE CAPSULE BY MOUTH EVERY MORNING 08/17/2017 12/14/2017 Inactive Pulmicort 1 mg/2 mL suspension for nebulization RxNorm: 6168 19 1 Unit Dose INH BID Dx: COPD (J44.9) 08/16/2017 08/22/2018 Inactive gabapentin 300 mg capsule RxNorm: 158555 1 Capsule(s) PO QHS 201610/18/2017 Inactive fluoxetine 20 mg capsule RxNorm: 010805 1 Capsule(s) PO QD 08/12/20 17 02/14/2018 Inactive Abilify 2 mg tablet RxNorm: 441146 1 Tablet(s) PO QD TA KE ONE TABLET BY MOUTH DAILY 08/12/2017 10/25/2017 Inactive metformin ER 500 mg tablet,extended release 24 hr RxNorm: 86 0975 1 Tablet(s) PO QD 08/10/2017 02/14/2018 Inactive Synthroid 112 mcg tablet RxNorm: 006363 1 Tablet(s) PO QD 08/10/2017 04/15/2018 Inactive oxycodone 10 mg tablet RxNorm: 5798318 1-2 Tablet(s) PO QID as n eeded for pain 07/19/2017 08/16/2017 Inactive Duragesic 100 mcg/hr transdermal patch RxNorm: 639609 2 Application TD Q48H for pain 07/19/2017 08/16/2017 Inactive Ventolin HFA 90 mcg/actuation aerosol inhaler RxNorm: 176708 2 Puff(s) INH Q4H as needed 07/12/2017 09/02/2017 Inactive Abilify 2 mg tablet RxNorm: 630807 1 Tablet(s) PO QD TA KE ONE TABLET BY MOUTH DAILY 07/06/2017 08/11/2017 Inactive gabapentin 800 mg tablet RxNorm: 735373 1 Tablet(s) PO TID 06/22/2007/05/2017 Inactive Chantix Starting Month Box 0.5 mg (11)-1 mg (42) table ts in dose pack RxNorm: 510139 TAKE BY MOUTH INSTRUCTED - PER PACKAGE INSTRUCTIONS 06/0707/04/2017 Inactive Ventolin HFA 90 mcg/actuation aerosol inhaler RxNorm: 976668 2 Puff(s) INH Q4H as needed 05/26/2017 07/12/2017 Inactive Duragesic 100 mcg/hr transdermal patch RxNorm: 987417 2 Application TD Q48H for pain 05/19/2017 06/17/2017 Inactive oxycodone 10 mg tablet RxNorm: 8172248 1-2 Tablet(s) PO QID as n eeded for pain 05/19/2017 07/18/2017 Inactive Abilify 2 mg tablet RxNorm: 590570 TAKE ONE TABLET BY MOUTH DAILY 0 05/10/2017 07/05/2017 Inactive Synthroid 112 mcg tablet RxNorm: 816244 1 Tablet(s) PO QD 05/06/2017 08/10/2017 Inactive metformin ER 500 mg tablet,extended release 24 hr RxNorm: 86 0975 1 Tablet(s) PO QD 05/06/2017 08/10/2017 Inactive Topamax 100 mg tablet RxNorm: 612178 1 Tablet(s) PO QHS 05/06/2017 Inactive Premarin 0.45 mg tablet RxNorm: 098072 1 Tablet(s) PO QD 05/06/2017 0 04/15/2018 Inactive orphenadrine citrate ER 100 mg tablet,extended release RxNor m: 131871 1 Tablet(s) PO TID for muscle spasm--replaces methocarbamol 04/29/2017 Inactive oxycodone 10 mg tablet RxNorm: 2622348 1-2 Tablet(s) PO QID as n eeded for pain 04/21/2017 05/18/2017 Inactive Duragesic 100 mcg/hr transdermal patch RxNorm: 734885 2 Application TD Q48H for pain 04/21/2017 05/18/2017 Inactive fluoxetine 40 mg capsule RxNorm: 091014 Capsule(s) TAKE ONE CAPSULE BY MOUTH EVERY MORNING 04/20/2017 08/17/2017 Inactive Ventolin HFA 90 mcg/actuation aerosol inhaler RxNorm: 465870 2 Puff(s) INH Q4H as needed 04/05/2017 05/26/2017 Inactive Symbicort 160 mcg-4.5 mcg/actuation HFA aerosol inhaler RxNo rm: 1949601 2 Puff(s) INH BID 03/30/2017 04/15/2018 Inactive Spiriva with HandiHaler 18 mcg and inhalation capsules RxNor m: 359358 1 Capsule(s) INH QD USING HANDIHALER 03/30/2017 02/12/2019 Inactive Duragesic 100 mcg/hr transdermal patch RxNorm: 471678 2 Application TD Q48H for pain 03/18/2017 04/16/2017 Inactive oxycodone 10 mg tablet RxNorm: 4845460 1-2 Tablet(s) PO QID as n eeded for pain 03/18/2017 04/20/2017 Inactive metformin ER 500 mg tablet,extended release 24 hr RxNorm: 86 0975 Tablet(s) TAKE ONE TABLET BY MOUTH DAILY 03/01/2017 05/06/2017 Inactive Premarin 0.45 mg tablet RxNorm: 924596 Tablet(s) TAKE ONE TABLE T BY MOUTH DAILY 03/01/2017 05/06/2017 Inactive Synthroid 112 mcg tablet RxNorm: 686468 Tablet(s) TAKE ONE TABLET BY MOUTH DAILY 03/01/2017 05/06/2017 Inactive Daliresp 500 mcg tablet RxNorm: 4848543 1 Tablet(s) PO QD 03/01/2017 09/06/2017 Inactive 16.2 mg-0.1037 mg-0.0194 mg tablet RxNorm: 2508885 Tablet(s) PO PRN for gas and cramping 02/23/2017 04/28/2017 Inactive TAKE TWO TABLET S BY MOUTH THREE TIMES A DAY NEEDED FOR GAS AND CRAMPING gabapentin 800 mg tablet RxNorm: 553034 1 Tablet(s) PO TID repl aces 600mg 02/23/2017 04/28/2017 Inactive Duragesic 100 mcg/hr transdermal patch RxNorm: 338600 2 Application TD Q48H for pain 02/17/2017 03/17/2017 Inactive fluoxetine 20 mg capsule RxNorm: 438102 1 Capsule(s) PO QD 02/18/20 17 08/12/2017 Inactive oxycodone 20 mg tablet RxNorm: 8648088 1 Tablet(s) PO QID as nee ded for pain 02/17/2017 03/17/2017 Inactive Ventolin HFA 90 mcg/actuation aerosol inhaler RxNorm: 806868 INHALE TWO PUFFS BY MOUTH EVERY 4 HOURS NEEDED 02/15/2017 04/05/2017 Inactive Silvadene 1 % topical cream RxNorm: 089549 1 Application TOP BI D to burn area 02/01/2017 09/22/2017 Inactive Topamax 100 mg tablet RxNorm: 055322 TAKE ONE TABLET BY MOUTH EVERY NIGHT AT BEDTIME 01/29/2017 05/06/2017 Inactive Chantix Starting Month Box 0.5 mg (11)-1 mg (42) table ts in dose pack RxNorm: 107700 Tablet(s) PO as directed 01/29/2017 06/01/2017 Inactive Abilify 2 mg tablet RxNorm: 488819 TAKE ONE TABLET BY MOUTH DAILY 0 01/26/2017 04/25/2017 Inactive Chantix Starting Month Box 0.5 mg (11)-1 mg (42) table ts in dose pack RxNorm: 391859 Tablet(s) PO as directed 01/20/2017 01/28/2017 Inactive gabapentin 600 mg tablet RxNorm: 577138 1 Tablet(s) PO TID 01/21/20 17 02/22/2017 Inactive Chantix Continuing Month Box 1 mg tablet RxNorm: 446744 1 Table t(s) PO BID 12/31/2016 06/01/2017 Inactive Spiriva with HandiHaler 18 mcg and inhalation capsules RxNor m: 248451 INHALE THE ENTIRE CONTENTS OF 1 CAPSULE ONCE A DAY USING HANDIHALER 12/31/201607/2017 Inactive Synthroid 112 mcg tablet RxNorm: 392165 TAKE ONE TABLET BY MOUT H DAILY 12/30/2016 03/01/2017 Inactive metformin ER 500 mg tablet,extended release 24 hr RxNorm: 86 0975 TAKE ONE TABLET BY MOUTH DAILY 12/30/2016 03/01/2017 Inactive Premarin 0.45 mg tablet RxNorm: 902403 TAKE ONE TABLET BY MOUTH DAILY 12/30/2016 03/01/2017 Inactive omeprazole 40 mg capsule,delayed release RxNorm: 184629 TAKE ONE CAPSULE BY MOUTH DAILY 12/30/2016 01/25/2018 Inactive Ventolin HFA 90 mcg/actuation aerosol inhaler RxNorm: 938345 INHALE TWO PUFFS BY MOUTH EVERY 4 HOURS NEEDED 12/28/2016 02/13/2017 Inactive fluoxetine 40 mg capsule RxNorm: 176829 TAKE ONE CAPSULE BY BENOIT TH EVERY MORNING 12/15/2016 04/20/2017 Inactive Chantix Continuing Month Box 1 mg tablet RxNorm: 452614 TAKE ONE TABLET BY MOUTH TWICE A DAY 12/04/2016 12/31/2016 Inactive doxycycline hyclate 100 mg capsule RxNorm: 1256370 1 Capsule(s) PO BID 12/01/2016 12/07/2016 Inactive Levaquin 750 mg tablet RxNorm: 476002 1 Tablet(s) PO QD 12/01/2016 Inactive Abilify 2 mg tablet RxNorm: 305637 TAKE ONE TABLET BY MOUTH DAILY 0 11/25/2016 11/30/2016 Inactive Ventolin HFA 90 mcg/actuation aerosol inhaler RxNorm: 232348 INHALE TWO PUFFS BY MOUTH EVERY 4 HOURS NEEDED 11/02/2016 12/19/2016 Inactive Chantix Continuing Month Box 1 mg tablet RxNorm: 356410 Tablet(s) PO as directed 10/30/2016 12/03/2016 Inactive Symbicort 160 mcg-4.5 mcg/actuation HFA aerosol inhaler RxNo rm: 5808113 INHALE TWO PUFFS TWO TIMES A DAY 10/30/2016 03/30/2017 Inactive Abilify 2 mg tablet RxNorm: 817144 1 Tablet(s) PO QD 10/27/201611/24 Inactive amoxicillin 500 mg capsule RxNorm: 516761 1 Capsule(s) PO TID 10/1410/23/2016 Inactive amoxicillin 500 mg capsule RxNorm: 720547 1 Capsule(s) PO TID 10/1410/13/2016 Inactive Synthroid 112 mcg tablet RxNorm: 304441 TAKE ONE TABLET BY MOUT H DAILY 09/28/2016 12/29/2016 Inactive Topamax 100 mg tablet RxNorm: 310725 TAKE ONE TABLET BY MOUTH EVERY NIGHT AT BEDTIME 09/28/2016 01/28/2017 Inactive Premarin 0.45 mg tablet RxNorm: 944852 TAKE ONE TABLET BY MOUTH DAILY 09/28/2016 12/29/2016 Inactive metformin ER 500 mg tablet,extended release 24 hr RxNorm: 86 0975 TAKE ONE TABLET BY MOUTH DAILY 09/28/2016 12/29/2016 Inactive Ventolin HFA 90 mcg/actuation aerosol inhaler RxNorm: 121343 INHALE TWO PUFFS BY MOUTH EVERY 4 HOURS NEEDED 09/22/2016 10/23/2016 Inactive Pulmicort 1 mg/2 mL suspension for nebulization RxNorm: 6168 19 1 Unit Dose INH BID Dx: COPD (J44.9) 09/10/2016 08/16/2017 Inactive Pulmicort 1 mg/2 mL suspension for nebulization RxNorm: 6168 19 1 Unit Dose INH BID 09/10/2016 09/09/2016 Inactive Brovana 15 mcg/2 mL solution for nebulization RxNorm: 813360 1 Unit Dose INH BID Dx: COPD (J44.9) 09/10/2016 01/25/2018 Inactive Brovana 15 mcg/2 mL solution for nebulization RxNorm: 971491 1 Unit Dose INH BID 09/10/2016 09/09/2016 Inactive ipratropium-albuterol 0.5 mg-3 mg(2.5 mg base)/3 mL ne bulization soln RxNorm: 9175224 1 Unit Dose INH Q4H as needed Dx: COPD (J44.9) 09/10/2016 0 02/12/2019 Inactive orphenadrine citrate ER 100 mg tablet,extended release RxNor m: 678404 1 Tablet(s) PO BID for muscle spasm--replaces methocarbamol 09/09/2016 Inactive Chantix Continuing Month Box 1 mg tablet RxNorm: 738944 Tablet(s) PO as directed 09/09/2016 10/30/2016 Inactive orphenadrine citrate ER 100 mg tablet,extended release RxNor m: 316711 1 Tablet(s) PO BID for muscle spasm 09/09/2016 09/08/2016 Inactive Spiriva with HandiHaler 18 mcg and inhalation capsules RxNor m: 186799 INHALE THE ENTIRE CONTENTS OF 1 CAPSULE ONCE A DAY USING HANDIHALER 09/01/201605/2017 Inactive Daliresp 500 mcg tablet RxNorm: 3665374 1 Tablet(s) PO QD 08/27/2016 03/01/2017 Inactive prednisone 20 mg tablet RxNorm: 889875 3 Tablet(s) PO T ID for 3 days then 1 po BID for 3 days then one daily for 3 days 08/26/2016 04/28/2017 Inactiv e Wellbutrin XL 300 mg 24 hr tablet, extended release RxNorm: 274102 TAKE ONE TABLET BY MOUTH EVERY MORNING 07/29/2016 10/26/2016 Inactive gabapentin 600 mg tablet RxNorm: 302979 1 Tablet(s) PO BID 06/26/20 16 12/22/2016 Inactive fluoxetine 40 mg capsule RxNorm: 749286 TAKE ONE CAPSULE BY BENOIT TH EVERY MORNING 06/24/2016 11/20/2016 Inactive Duragesic 100 mcg/hr transdermal patch RxNorm: 527803 2 Application TD Q48H for pain 06/05/2016 07/04/2016 Inactive oxycodone 10 mg tablet RxNorm: 6287778 1-2 Tablet(s) PO QID as n eeded for pain 06/05/2016 03/17/2017 Inactive Belladonna-Phenobarbital 48 mg tablet,extended release RxNor m: 2 Tablet(s) PO TID 06/05/2016 01/19/2017 Inactive Premarin 0.45 mg tablet RxNorm: 013065 TAKE ONE TABLET BY MOUTH DAILY 05/27/2016 09/23/2016 Inactive Topamax 100 mg tablet RxNorm: 457960 TAKE ONE TABLET BY MOUTH EVERY NIGHT AT BEDTIME 05/27/2016 09/27/2016 Inactive Synthroid 112 mcg tablet RxNorm: 950167 TAKE ONE TABLET BY MOUT H DAILY 05/27/2016 09/23/2016 Inactive metformin ER 500 mg tablet,extended release 24 hr RxNorm: 86 0975 TAKE ONE TABLET BY MOUTH DAILY 05/27/2016 09/23/2016 Inactive Symbicort 160 mcg-4.5 mcg/actuation HFA aerosol inhaler RxNo rm: 6271581 INHALE TWO PUFFS TWO TIMES A DAY 05/27/2016 10/23/2016 Inactive Ventolin HFA 90 mcg/actuation aerosol inhaler RxNorm: 956396 INHALE TWO PUFFS BY MOUTH EVERY 4 HOURS NEEDED 05/21/2016 07/07/2016 Inactive omeprazole 40 mg capsule,delayed release RxNorm: 497675 1 Capsu le(s) PO QD 05/06/2016 08/03/2016 Inactive metformin ER 500 mg tablet,extended release 24 hr RxNorm: 86 0975 TAKE ONE TABLET BY MOUTH DAILY 04/23/2016 05/22/2016 Inactive methocarbamol 750 mg tablet RxNorm: 739196 2 Tablet(s) PO TID as needed for muscle spasm 04/23/2016 09/08/2016 Inactive Synthroid 112 mcg tablet RxNorm: 641314 TAKE ONE TABLET BY MOUT H DAILY 04/23/2016 05/22/2016 Inactive Spiriva with HandiHaler 18 mcg and inhalation capsules RxNor m: 638512 INHALE THE ENTIRE CONTENTS OF 1 CAPSULE ONCE A DAY USING HANDIHALER 04/09/201608/2016 Inactive Diflucan 100 mg tablet RxNorm: 206856 1 Tablet(s) PO QD 04/08/2016 Inactive doxycycline hyclate 100 mg capsule RxNorm: 4405685 1 Capsule(s) PO BID 04/08/2016 04/17/2016 Inactive doxycycline hyclate 100 mg capsule RxNorm: 2732170 1 Capsule(s) PO BID 04/08/2016 04/07/2016 Inactive Diflucan 100 mg tablet RxNorm: 607122 1 Tablet(s) PO QD 04/08/2016 Inactive ondansetron HCl 4 mg tablet RxNorm: 485852 1 Tablet(s) PO Q4H as needed for nausea and vomiting 04/08/2016 09/22/2017 Inactive gabapentin 600 mg tablet RxNorm: 204507 TAKE ONE TABLET BY MOUT H TWICE A DAY 03/24/2016 06/25/2016 Inactive Synthroid 112 mcg tablet RxNorm: 017241 TAKE ONE TABLET BY MOUT H DAILY 02/25/2016 04/22/2016 Inactive Levaquin 500 mg tablet RxNorm: 726478 1 Tablet(s) PO QD 01/23/2016 Inactive prednisone 20 mg tablet RxNorm: 198102 1 Tablet(s) PO T ID for 3 days then 1 po BID for 3 days then one daily for 3 days 01/23/2016 08/25/2016 Inactiv e [employer] Ultra Test strips RxNorm: TEST BLOOD SUGAR ONCE DAILY 250.00 01/09/2016 11/04/2017 Inactive methocarbamol 750 mg tablet RxNorm: 935812 2 Tablet(s) PO TID as needed for muscle spasm 01/09/2016 04/23/2016 Inactive lactulose 10 gram/15 mL oral solution RxNorm: 524086 [address](s) PO QD 01/09/2016 09/22/2017 Inactive TAKE 1 TABLESPOON BY MOUTH ONCE DAILY metformin ER 500 mg tablet,extended release 24 hr RxNorm: 86 0975 1 Tablet(s) PO QD 12/26/2015 04/22/2016 Inactive fluoxetine 20 mg capsule RxNorm: 447964 1 Capsule(s) PO QD 12/23/19 16 06/19/2016 Inactive Premarin 0.45 mg tablet RxNorm: 015242 TAKE ONE TABLET BY MOUTH DAILY 12/23/2015 05/20/2016 Inactive fluoxetine 40 mg capsule RxNorm: 422809 1 Capsule(s) PO QD 12/23/19 16 06/19/2016 Inactive TAKE ONE CAPSULE BY MOUTH EV JANKI MORNING azithromycin 500 mg tablet RxNorm: 561830 1 Tablet(s) PO QD 016 12/19/2015 Inactive Zofran 4 mg tablet RxNorm: 577078 1 Tablet(s) PO Q4H prn nausea /vomiting 12/13/2015 03/30/2018 Inactive azithromycin 500 mg tablet RxNorm: 558811 1 Tablet(s) PO QD 016 12/12/2015 Inactive Duragesic 100 mcg/hr transdermal patch RxNorm: 945927 2 Application TD Q48H for pain 12/09/2015 01/07/2016 Inactive oxycodone 10 mg tablet RxNorm: 2035696 1-2 Tablet(s) PO QID as n eeded for pain 12/09/2015 06/04/2016 Inactive Bactroban 2 % topical cream RxNorm: 828144 Application TOP BID 11/2208/25/2016 Inactive doxycycline hyclate 100 mg capsule RxNorm: 6730819 1 Capsule(s) PO BID 12/03/2015 12/12/2015 Inactive Topamax 100 mg tablet RxNorm: 206289 TAKE ONE TABLET BY MOUTH EVERY NIGHT AT BEDTIME 11/25/2015 05/22/2016 Inactive Symbicort 160 mcg-4.5 mcg/actuation HFA aerosol inhaler RxNo rm: 7042609 INHALE TWO PUFFS TWO TIMES A DAY 11/25/2015 05/22/2016 Inactive Synthroid 112 mcg tablet RxNorm: 538034 Tablet(s) TAKE ONE TABLET BY MOUTH DAILY 11/25/2015 02/22/2016 Inactive omeprazole 40 mg capsule,delayed release RxNorm: 121631 1 Capsu le(s) PO QD 11/12/2015 05/05/2016 Inactive oxycodone 10 mg tablet RxNorm: 9977186 1-2 Tablet(s) PO QID as n eeded for pain 11/05/2015 12/08/2015 Inactive Duragesic 100 mcg/hr transdermal patch RxNorm: 955974 2 Application TD Q48H for pain 11/05/2015 12/04/2015 Inactive omeprazole 40 mg capsule,delayed release RxNorm: 529559 1 Capsu le(s) PO QD 10/07/2015 11/11/2015 Inactive Januvia 100 mg tablet RxNorm: 468881 TAKE ONE TABLET BY MOUTH DAILY 09/11/2015 12/25/2015 Inactive Zithromax 500 mg tablet RxNorm: 606821 1 Tablet(s) PO QD 09/10/2015 1 Inactive prednisone 20 mg tablet RxNorm: 117878 1 Tablet(s) PO T ID for 3 days then 1 po BID for 3 days then one daily for 3 days 09/10/2015 08/25/2016 Inactiv e Wellbutrin XL 300 mg 24 hr tablet, extended release RxNorm: 116243 1 Tablet(s) PO QAM 09/10/2015 12/02/2015 Inactive Topamax 100 mg tablet RxNorm: 379462 TAKE ONE TABLET BY MOUTH EVERY NIGHT AT BEDTIME 09/02/2015 11/24/2015 Inactive Synthroid 112 mcg tablet RxNorm: 208140 TAKE ONE TABLET BY MOUT H DAILY 09/02/2015 11/25/2015 Inactive methocarbamol 750 mg tablet RxNorm: 299897 2 Tablet(s) PO TID as needed for muscle spasm 08/15/2015 01/09/2016 Inactive Wellbutrin XL 150 mg 24 hr tablet, extended release RxNorm: 013923 TAKE ONE TABLET BY MOUTH EVERY MORNING 08/13/2015 08/13/2015 Inactive gabapentin 600 mg tablet RxNorm: 960504 1 Tablet(s) PO BID 08/13/20 15 02/08/2016 Inactive Wellbutrin XL 300 mg 24 hr tablet, extended release RxNorm: 595896 1 Tablet(s) PO QAM 08/06/2015 09/09/2015 Inactive Wellbutrin XL 150 mg 24 hr tablet, extended release RxNorm: 405451 1 Tablet(s) PO QAM 07/18/2015 08/05/2015 Inactive prednisone 20 mg tablet RxNorm: 272209 1 Tablet(s) PO BID 07/18/2015 07/22/2015 Inactive doxycycline hyclate 100 mg tablet,delayed release RxNorm: 43 4018 1 Tablet(s) PO BID 07/18/2015 07/27/2015 Inactive pravastatin 40 mg tablet RxNorm: 358450 1 Tablet(s) PO QD NEEDS FASTING LAB 07/15/2015 07/14/2015 Inactive pravastatin 40 mg tablet RxNorm: 509093 1 Tablet(s) PO QD NEEDS FASTING LAB 07/15/2015 01/25/2018 Inactive Ventolin HFA 90 mcg/actuation aerosol inhaler RxNorm: 409200 2 Puff(s) INH Q4H 07/08/2015 07/07/2015 Inactive prn Premarin 0.45 mg tablet RxNorm: 404448 1 Tablet(s) PO QD 07/01/2015 0 12/22/2015 Inactive pravastatin 40 mg tablet RxNorm: 681133 1 Tablet(s) PO QD NEEDS FASTING LAB 06/14/2015 07/15/2015 Inactive Ventolin HFA 90 mcg/actuation aerosol inhaler RxNorm: 0732751 2 Puff(s) INH Q4H 06/06/2015 07/08/2015 Inactive prn albuterol sulfate 2.5 mg/3 mL (0.083 %) solution for n ebulization RxNorm: 021211 1 Unit Dose INH QID 05/30/2015 No Stop Date Active Duragesic 100 mcg/hr transdermal patch RxNorm: 088906 2 Application TD Q48H for pain 04/29/2015 05/28/2015 Inactive gabapentin 600 mg tablet RxNorm: 033586 1 Tablet(s) PO BID 04/11/20 15 08/13/2015 Inactive Onglyza 5 mg tablet RxNorm: 428906 1 Tablet(s) PO QD for blood suga r 04/10/2015 04/15/2015 Inactive [Brand Copay Card: RxBIN:[id number] PCN:CRISTIANA RxGRP:[id number] ID#:[id number]] methocarbamol 750 mg tablet RxNorm: 890380 2 Tablet(s) PO TID as needed for muscle spasm 03/28/2015 08/15/2015 Inactive pravastatin 40 mg tablet RxNorm: 981045 1 Tablet(s) PO QD 03/19/2015 03/18/2015 Inactive pravastatin 40 mg tablet RxNorm: 990121 1 Tablet(s) PO QD 03/19/2015 06/14/2015 Inactive lactulose 10 gram/15 mL oral solution RxNorm: 065406 [address]s) PO QD 03/07/2015 01/09/2016 Inactive TAKE 1 TABLESPOON BY MOUTH ONCE DAILY oxycodone 20 mg tablet RxNorm: 3567154 1 Tablet(s) PO QID as nee ded for pain 03/05/2015 07/08/2015 Inactive Topamax 100 mg tablet RxNorm: 487115 1 Tablet(s) PO QHS TAKE ONE TABLET BY MOUTH AT BEDTIME 02/25/2015 02/12/2019 Inactive metformin ER 500 mg tablet,extended release 24 hr RxNorm: 86 0975 1 Tablet(s) PO QD 02/11/2015 03/04/2015 Inactive take one tablet by mouth every day Daliresp 500 mcg tablet RxNorm: 9213321 1 Tablet(s) PO QD 02/11/2015 08/09/2015 Inactive Endocet 10 mg-325 mg tablet RxNorm: 7333552 1 Tablet(s) PO Q4H as needed for pain 01/23/2015 01/23/2015 Inactive gabapentin 600 mg tablet RxNorm: 943076 1 Tablet(s) PO BID 01/23/20 15 04/11/2015 Inactive methocarbamol 750 mg tablet RxNorm: 128336 2 Tablet(s) PO TID as needed for muscle spasm 01/15/2015 02/13/2015 Inactive fluoxetine 40 mg capsule RxNorm: 021480 1 Capsule(s) PO QD 01/14/20 15 12/23/2015 Inactive TAKE ONE CAPSULE BY MOUTH EV JANKI MORNING fluoxetine 20 mg capsule RxNorm: 802543 1 Capsule(s) PO QD 01/14/20 15 12/23/2015 Inactive Premarin 0.45 mg tablet RxNorm: 257327 1 Tablet(s) PO QD 01/02/2015 0 07/01/2015 Inactive Endocet 10 mg-325 mg tablet RxNorm: 0286527 1-2 Tablet(s) PO Q4H 02/12/2019 Inactive PRN PAIN Duragesic 100 mcg/hr transdermal patch RxNorm: 491117 2 Application TD Q48H for pain 12/25/2014 01/23/2015 Inactive Topamax 100 mg tablet RxNorm: 354756 1 Tablet(s) PO QHS TAKE ONE TABLET BY MOUTH AT BEDTIME 12/25/2014 02/24/2015 Inactive Tudorza Pressair 400 mcg/actuation breath activated RxNorm: 6539218 1 BID INHALE ONE PUFF INTO LUNGS TWO TIMES A DAY 12/17/2014 05/15/2015 Inactive Endocet 10 mg-325 mg tablet RxNorm: 4809119 1-2 Tablet(s) PO Q4H 12/19/2014 Inactive PRN PAIN Duragesic 100 mcg/hr transdermal patch RxNorm: 704150 2 Application TD Q48H for pain 11/20/2014 12/24/2014 Inactive [employer] Ultra Test strips RxNorm: TEST BLOOD SUGAR ONCE DAILY 250.00 11/16/2014 01/08/2016 Inactive omeprazole 40 mg capsule,delayed release RxNorm: 984938 1 Capsu le(s) PO QD 11/13/2014 11/12/2015 Inactive metformin ER 500 mg tablet,extended release 24 hr RxNorm: 86 0975 1 Tablet(s) PO QD 11/12/2014 02/11/2015 Inactive take one tablet by mouth every day Symbicort 160 mcg-4.5 mcg/actuation HFA aerosol inhaler RxNo rm: 0391327 2 Puff(s) INH BID 11/12/2014 03/11/2015 Inactive INHALE 2 PUFFS O RALLY TWO TIMES A DAY gabapentin 800 mg tablet RxNorm: 636653 1 Tablet(s) PO QD TAKE ONE TABLET BY MOUTH ONCE A DAY 10/22/2014 01/01/2015 Inactive Endocet 10 mg-325 mg tablet RxNorm: 0356873 1-2 Tablet(s) PO Q4H 11/15/2014 Inactive PRN PAIN Duragesic 100 mcg/hr transdermal patch RxNorm: 517346 2 Application TD Q48H for pain 10/17/2014 11/19/2014 Inactive gabapentin 800 mg tablet RxNorm: 157942 1 Tablet(s) PO QD TAKE ONE TABLET BY MOUTH ONCE A DAY 10/04/2014 10/21/2014 Inactive Premarin 0.9 mg tablet RxNorm: 993460 1 Tablet(s) PO QD TAKE ONE TABLET BY MOUTH ONCE A DAY 10/04/2014 01/01/2015 Inactive Spiriva with HandiHaler 18 mcg & inhalation capsules RxNorm: 215117 1 Capsule(s) INH QD 10/03/2014 04/30/2015 Inactive Levaquin 500 mg tablet RxNorm: 329567 1 Tablet(s) PO QD 10/03/2014 Inactive prednisone 20 mg tablet RxNorm: 947826 1 Tablet(s) PO QD 10/03/2014 1 12/09/2013 Inactive Duragesic 100 mcg/hr transdermal patch RxNorm: 989920 2 Application TD Q48H for pain 09/18/2014 10/16/2014 Inactive Endocet 10 mg-325 mg tablet RxNorm: 7321181 1-2 Tablet(s) PO Q4H 10/16/2014 Inactive PRN PAIN Synthroid 112 mcg tablet RxNorm: 090224 1 Tablet(s) QD 09/10/2014 Inactive Synthroid 112 mcg tablet RxNorm: 020426 TAKE ONE TABLET BY MOUTH ONE TIME A DAY. NEEDS LABS 09/10/2014 02/06/2015 Inactive omeprazole 40 mg capsule,delayed release RxNorm: 081782 1 Capsu le(s) PO QD 09/03/2014 11/13/2014 Inactive omeprazole 40 mg capsule,delayed release RxNorm: 652475 1 Capsu le(s) PO QD 09/03/2014 09/02/2014 Inactive Spiriva with HandiHaler 18 mcg & inhalation capsules RxNorm: 305106 1 Capsule(s) INH QD 08/27/2014 10/02/2014 Inactive gabapentin 600 mg tablet RxNorm: 497388 1 Tablet(s) PO BID 08/27/20 14 10/22/2014 Inactive Endocet 10 mg-325 mg tablet RxNorm: 4876581 1-2 Tablet(s) PO Q4H 09/17/2014 Inactive PRN PAIN fentanyl 100 mcg/hr transdermal patch RxNorm: 018304 1 Unit Dos e TD QD 08/21/2014 09/19/2014 Inactive Daliresp 500 mcg tablet RxNorm: 4546094 1 Tablet(s) PO QD 08/13/2014 02/11/2015 Inactive Synthroid 112 mcg tablet RxNorm: 961692 TAKE ONE TABLET BY MOUTH ONE TIME A DAY. NEEDS LABS 08/10/2014 09/10/2014 Inactive Endocet 10 mg-325 mg tablet RxNorm: 4555455 1-2 Tablet(s) PO Q4H 08/17/2014 Inactive PRN PAIN Duragesic 100 mcg/hr transdermal patch RxNorm: 692083 2 Application TD Q48H for pain 07/19/2014 09/17/2014 Inactive fluoxetine 40 mg capsule RxNorm: 464662 1 Capsule(s) PO QD 07/17/20 14 01/14/2015 Inactive TAKE ONE CAPSULE BY MOUTH EV JANKI MORNING fluoxetine 20 mg capsule RxNorm: 944680 1 Capsule(s) PO QD 07/17/20 14 01/14/2015 Inactive Spiriva with HandiHaler 18 mcg & inhalation capsules RxNorm: 574726 1 Capsule(s) INH QD 07/17/2014 08/26/2014 Inactive INHALE CONTENTS OF 1 CAPSULE(S) WITH HANDIHALER ONCE DAILY Zofran 4 mg tablet RxNorm: 907014 1 Tablet(s) PO Q4H prn nausea 07/25/2014 Inactive Synthroid 112 mcg tablet RxNorm: 463562 1 Tablet(s) PO QD 07/09/2014 07/09/2014 Inactive methocarbamol 750 mg tablet RxNorm: 630073 2 Tablet(s) PO TID as needed for muscle spasm 07/09/2014 09/06/2014 Inactive Synthroid 112 mcg tablet RxNorm: 936204 1 Tablet(s) PO QD - mae d labs 07/09/2014 08/07/2014 Inactive Medrol (Aníbal) 4 mg tablets in a dose pack RxNorm: 457117 6 Tablet(s) PO QD --then as directed 07/03/2014 07/08/2014 Inactive Tudorza Pressair 400 mcg/actuation breath activated RxNorm: 4596156 1 Puff(s) INH BID 07/03/2014 12/17/2014 Inactive cefdinir 300 mg capsule RxNorm: 034901 1 Capsule(s) PO BID 07/03/20 14 07/12/2014 Inactive Topamax 100 mg tablet RxNorm: 239403 Tablet(s) TAKE ONE TABLET BY MOUTH AT BEDTIME 07/02/2014 02/25/2015 Inactive Duragesic 100 mcg/hr transdermal patch RxNorm: 682224 2 Application TD Q48H for pain 06/25/2014 07/18/2014 Inactive Endocet 10 mg-325 mg tablet RxNorm: 9410393 1-2 Tablet(s) PO Q4H 07/18/2014 Inactive PRN PAIN metformin ER 500 mg tablet,extended release 24 hr RxNorm: 86 0975 1 Tablet(s) PO QD Needs labs 06/18/2014 07/01/2014 Inactive take one tablet by mouth every day Duragesic 100 mcg/hr transdermal patch RxNorm: 355042 2 Application TD Q48H for pain 05/22/2014 06/24/2014 Inactive Synthroid 112 mcg tablet RxNorm: 903178 1 Tablet(s) PO QD 05/22/2014 07/09/2014 Inactive Endocet 10 mg-325 mg tablet RxNorm: 2678730 1-2 Tablet(s) PO Q4H 06/20/2014 Inactive PRN PAIN Endocet 10 mg-325 mg tablet RxNorm: 9389788 1-2 Tablet(s) PO Q4H 05/21/2014 Inactive PRN PAIN Duragesic 100 mcg/hr transdermal patch RxNorm: 805777 2 Application TD Q48H for pain 04/25/2014 05/21/2014 Inactive Daliresp 500 mcg tablet RxNorm: 7897200 1 Tablet(s) PO QD 04/24/2014 08/13/2014 Inactive Symbicort 160 mcg-4.5 mcg/actuation HFA aerosol inhaler RxNo rm: 3441850 2 Puff(s) INH BID 04/24/2014 08/21/2014 Inactive INHALE 2 PUFFS O RALLY TWO TIMES A DAY metformin ER 500 mg tablet,extended release 24 hr RxNorm: 86 0975 1 Tablet(s) PO QD 04/24/2014 11/12/2014 Inactive TAKE ONE TABLET BY MOUTH EVERY DAY [AttnRPh:Saving Apply/Adjudicate RxGRP:LDMGRP RxBIN:[id number] RxPCN:2012 PCode:01 ID#:[id number]] Symbicort 160 mcg-4.5 mcg/actuation HFA aerosol inhaler RxNo rm: [id number] 2 Puff(s) INH BID 04/24/2014 11/12/2014 Inactive INHALE 2 PUFFS O RALLY TWO TIMES A DAY Premarin 0.9 mg tablet RxNorm: 689950 1 Tablet(s) PO QD 04/24/2014 Inactive TAKE ONE TABLET BY MOUTH EVERY DAY metformin ER 500 mg tablet,extended release 24 hr RxNorm: 86 0975 1 Tablet(s) PO QD Needs labs 04/24/2014 06/18/2014 Inactive TAKE ONE TABLET BY MOUTH EVERY DAY [AttnRPh:Saving Apply/Adjudicate RxGRP:LDMGRP RxBIN:[id number] RxPCN:2012 PCode:01 ID#:[id number]] gabapentin 800 mg tablet RxNorm: 491481 1 Tablet(s) PO QD 04/24/2014 10/04/2014 Inactive TAKE ONE TABLET BY MOUTH EVERY DAY Topamax 100 mg tablet RxNorm: 297965 1 Tablet(s) PO QHS 04/17/2014 Inactive Topamax 100 mg tablet RxNorm: 109728 TAKE ONE TABLET BY MOUTH A T BEDTIME 04/17/2014 07/01/2014 Inactive Tudorza Pressair 400 mcg/actuation breath activated RxNorm: 5376152 1 Puff(s) INH BID 04/11/2014 07/02/2014 Inactive Duragesic 100 mcg/hr transdermal patch RxNorm: 696645 2 Application TD Q48H for pain 03/27/2014 04/24/2014 Inactive Endocet 10 mg-325 mg tablet RxNorm: 1502376 1-2 Tablet(s) PO Q4H 04/24/2014 Inactive PRN PAIN Robaxin 750 mg tablet RxNorm: 007752 2 Tablet(s) PO TID as need ed for spasm 02/23/2014 03/28/2015 Inactive Duragesic 100 mcg/hr transdermal patch RxNorm: 396703 2 Application TD Q48H for pain 02/23/2014 No Stop Date Active Endocet 10 mg-325 mg tablet RxNorm: 3237943 1-2 Tablet(s) PO Q4H 03/23/2014 Inactive PRN PAIN Synthroid 112 mcg tablet RxNorm: 354589 1 Tablet(s) PO QD TAKE ONE TABLET BY MOUTH EVERY DAY 02/15/2014 05/22/2014 Inactive Zithromax 500 mg tablet RxNorm: 293088 1 Tablet(s) PO QD 01/30/2014 0 02/05/2014 Inactive Diflucan 100 mg tablet RxNorm: 025020 1 Tablet(s) PO QD 01/30/2014 Inactive prednisone 20 mg tablet RxNorm: 746540 1 Tablet(s) PO BID 01/30/2014 02/05/2014 Inactive fluoxetine 40 mg capsule RxNorm: 426229 1 Capsule(s) PO QD 01/23/20 14 07/16/2014 Inactive TAKE ONE CAPSULE BY MOUTH EV JANKI MORNING fluoxetine 40 mg capsule RxNorm: 677732 1 Capsule(s) PO QD 01/23/20 14 07/17/2014 Inactive TAKE ONE CAPSULE BY MOUTH EV JANKI MORNING cefdinir 300 mg capsule RxNorm: 254103 1 Capsule(s) PO BID 01/16/20 14 01/29/2014 Inactive Zithromax 500 mg tablet RxNorm: 489914 1 Tablet(s) PO QD 01/16/2014 0 01/22/2014 Inactive prednisone 20 mg tablet RxNorm: 153959 1 Tablet(s) PO BID 01/16/2014 01/22/2014 Inactive Spiriva with HandiHaler 18 mcg and inhalation capsules RxNor m: 236079 1 Capsule(s) INH QD 12/18/2013 07/17/2014 Inactive INHALE CONTENT S OF 1 CAPSULE(S) WITH HANDIHALER ONCE DAILY fluoxetine 20 mg capsule RxNorm: 245140 1 Capsule(s) PO QD 12/18/19 14 06/15/2014 Inactive Spiriva with HandiHaler 18 mcg & inhalation capsules RxNorm: 814812 1 Capsule(s) INH QD 12/18/2013 06/15/2014 Inactive INHALE CONTENTS OF 1 CAPSULE(S) WITH HANDIHALER ONCE DAILY fluoxetine 20 mg capsule RxNorm: 890932 1 Capsule(s) PO QD 12/18/19 14 07/17/2014 Inactive cefdinir 300 mg capsule RxNorm: 768836 2 Capsule(s) PO QD 12/12/2013 12/21/2013 Inactive Duragesic 100 mcg/hr transdermal patch RxNorm: 086001 2 Application TD Q48H for pain 12/08/2013 12/07/2013 Inactive Topamax 100 mg tablet RxNorm: 667899 1 Tablet(s) PO QHS 12/04/2013 Inactive Endocet 10 mg-325 mg tablet RxNorm: 9193597 1-2 Tablet(s) PO Q4H 12/26/2013 Inactive PRN PAIN Robaxin 750 mg tablet RxNorm: 990305 2 Tablet(s) PO TID as need ed for spasm 11/07/2013 01/05/2014 Inactive gabapentin 800 mg tablet RxNorm: 753972 1 Tablet(s) PO QD 10/16/2013 04/24/2014 Inactive TAKE ONE TABLET BY MOUTH EVERY DAY Symbicort 160 mcg-4.5 mcg/actuation HFA aerosol inhaler RxNo rm: 2130239 2 Puff(s) INH BID 10/16/2013 04/24/2014 Inactive INHALE 2 PUFFS O RALLY TWO TIMES A DAY Premarin 0.9 mg tablet RxNorm: 236875 1 Tablet(s) PO QD 10/16/2013 Inactive TAKE ONE TABLET BY MOUTH EVERY DAY metformin ER 500 mg tablet,extended release 24 hr RxNorm: 86 0975 1 Tablet(s) PO QD 10/16/2013 04/24/2014 Inactive TAKE ONE TABLET BY MOUTH EVERY DAY Daliresp 500 mcg tablet RxNorm: 6763266 1 Tablet(s) PO QD 10/16/2013 04/24/2014 Inactive Robaxin 750 mg tablet RxNorm: 655642 2 Tablet(s) PO TID as need ed for spasm 10/10/2013 11/06/2013 Inactive Duragesic 100 mcg/hr transdermal patch RxNorm: 460222 2 Application TD Q48H for pain 10/09/2013 No Stop Date Active Soma 350 mg tablet RxNorm: 376228 1 Tablet(s) PO TID 09/27/201310/09 Inactive TAKE ONE TABLET BY MOUTH THREE TIMES A D AY lactulose 10 gram/15 mL oral solution RxNorm: 577407 [address](s) PO QD 09/13/2013 03/07/2015 Inactive TAKE 1 TABLESPOON BY MOUTH ONCE DAILY Duragesic 100 mcg/hr transdermal patch RxNorm: 508849 2 Application TD Q48H for pain 09/06/2013 No Stop Date Active Endocet 10 mg-325 mg tablet RxNorm: 0901696 1-2 Tablet(s) PO Q4H 09/27/2013 Inactive PRN PAIN lancets 28 gauge RxNorm: Miscellaneous As needed for blo od glucose sticks 08/24/2013 No Stop Date Active 16.2 mg-0.1037 mg-0.0194 mg tablet RxNorm: 0741808 Tablet(s) PO PRN for gas and cramping 08/24/2013 01/19/2017 Inactive TAKE TWO TABLET S BY MOUTH THREE TIMES A DAY NEEDED FOR GAS AND CRAMPING Topamax 100 mg tablet RxNorm: 466595 1 Tablet(s) PO QHS 07/31/2013 Inactive Diflucan 100 mg tablet RxNorm: 765671 1 Tablet(s) PO QD 07/27/2013 Inactive cefdinir 300 mg capsule RxNorm: 871016 1 Capsule(s) PO BID 07/26/20 13 08/08/2013 Inactive Daliresp 500 mcg tablet RxNorm: 0437360 1 Tablet(s) PO QD 07/25/2013 10/15/2013 Inactive fluoxetine 40 mg capsule RxNorm: 931692 1 Capsule(s) PO QD 07/25/20 13 01/22/2014 Inactive TAKE ONE CAPSULE BY MOUTH EV JANKI MORNING Senokot-S 8.6 mg-50 mg tablet RxNorm: 3575289 1 Tablet(s) PO BID 10/25/2013 Inactive doxycycline hyclate 100 mg capsule RxNorm: 1464977 1 Capsule(s) PO BID 06/28/2013 07/07/2013 Inactive prednisone 20 mg tablet RxNorm: 484360 1 Tablet(s) PO BID 06/28/2013 07/04/2013 Inactive Zofran 4 mg tablet RxNorm: 424409 1 Tablet(s) PO Q4H prn nausea 03/201307/05/2013 Inactive Spiriva with HandiHaler 18 mcg & inhalation capsules RxNorm: 845324 1 Capsule(s) INH QD 06/26/2013 12/18/2013 Inactive INHALE CONTENTS OF 1 CAPSULE(S) WITH HANDIHALER ONCE DAILY Synthroid 112 mcg tablet RxNorm: 645856 1 Tablet(s) PO QD TAKE ONE TABLET BY MOUTH EVERY DAY 06/19/2013 02/15/2014 Inactive fluoxetine 20 mg capsule RxNorm: 620035 1 Capsule(s) PO QD 06/19/20 13 12/18/2013 Inactive Ventolin HFA 90 mcg/actuation Aerosol Inhaler RxNorm: 4291839 2 Puff(s) INH Q4H 06/05/2013 No Stop Date Active prn Soma 350 mg tablet RxNorm: 635086 1 Tablet(s) PO TID 06/05/201307/04 Inactive TAKE ONE TABLET BY MOUTH THREE TIMES A D AY prednisone 20 mg tablet RxNorm: 953924 1 Tablet(s) PO QD 05/31/2013 0 06/06/2013 Inactive Topamax 100 mg tablet RxNorm: 606546 1 Tablet(s) PO QHS 05/22/2013 Inactive Levaquin 500 mg tablet RxNorm: 936832 1 Tablet(s) PO QD 05/03/2013 Inactive Diflucan 100 mg tablet RxNorm: 027391 1 Tablet(s) PO QD 05/03/2013 Inactive Daliresp 500 mcg tablet RxNorm: 6769219 1 Tablet(s) PO QD 05/01/2013 07/24/2013 Inactive Daliresp 500 mcg tablet RxNorm: 2394215 1 Tablet(s) PO QD 05/01/2013 04/30/2013 Inactive gabapentin 800 mg tablet RxNorm: 353383 1 Tablet(s) PO QD 04/10/2013 10/06/2013 Inactive TAKE ONE TABLET BY MOUTH EVERY DAY metformin ER 500 mg tablet,extended release 24 hr RxNorm: 86 0977 1 Tablet(s) PO QD 04/10/2013 10/06/2013 Inactive TAKE ONE TABLET BY MOUTH EVERY DAY Premarin 0.9 mg tablet RxNorm: 080656 1 Tablet(s) PO QD 04/10/2013 Inactive TAKE ONE TABLET BY MOUTH EVERY DAY Symbicort 160 mcg-4.5 mcg/actuation HFA aerosol inhaler RxNo rm: 9646731 2 Puff(s) INH BID 04/10/2013 10/06/2013 Inactive INHALE 2 PUFFS O RALLY TWO TIMES A DAY Synthroid 112 mcg tablet RxNorm: 823239 1 Tablet(s) PO QD TAKE ONE TABLET BY MOUTH EVERY DAY 04/10/2013 06/18/2013 Inactive Ventolin HFA 90 mcg/actuation Aerosol Inhaler RxNorm: 373993 2 Puff(s) INH Q4H 04/10/2013 No Stop Date Active prn fentanyl 100 mcg/hr transdermal patch RxNorm: 568905 1 Unit Dos e TD QD 04/03/2013 05/02/2013 Inactive Endocet 10 mg-325 mg tablet RxNorm: 5719086 1-2 Tablet(s) PO Q4H 05/02/2013 Inactive PRN PAIN Topamax 100 mg tablet RxNorm: 624710 1 Tablet(s) PO QHS 03/13/2013 Inactive Reglan 10 mg tablet RxNorm: 872706 1 Tablet(s) PO QID b efore meals and at bedtime 03/13/2013 04/09/2015 Inactive fluoxetine 20 mg capsule RxNorm: 053200 1 Capsule(s) PO QD 02/28/20 13 05/27/2013 Inactive Ventolin HFA 90 mcg/actuation Aerosol Inhaler RxNorm: 005618 2 Puff(s) INH Q4H 02/13/2013 No Stop Date Active prn fluoxetine 40 mg capsule RxNorm: 564238 1 Capsule(s) PO QD 01/31/20 13 07/24/2013 Inactive TAKE ONE CAPSULE BY MOUTH EV JANKI MORNING Soma 350 mg tablet RxNorm: 060262 1 Tablet(s) PO TID 01/20/201302/18 Inactive TAKE ONE TABLET BY MOUTH THREE TIMES A D AY Endocet 10 mg-325 mg tablet RxNorm: 2237367 1-2 Tablet(s) PO Q4H 02/06/2013 Inactive PRN PAIN MS Contin 200 mg tablet,extended release RxNorm: 095887 1 Table t(s) PO BID 01/18/2013 02/06/2013 Inactive Ventolin HFA 90 mcg/actuation Aerosol Inhaler RxNorm: 629516 2 Puff(s) INH Q4H 01/04/2013 No Stop Date Active prn Spiriva with HandiHaler 18 mcg & inhalation capsules RxNorm: 495383 1 Capsule(s) INH QD 12/29/2012 06/25/2013 Inactive INHALE CONTENTS OF 1 CAPSULE(S) WITH HANDIHALER ONCE DAILY Spiriva with HandiHaler 18 mcg & inhalation capsules RxNorm: 436736 1 Capsule(s) INH QD 12/26/2012 12/28/2012 Inactive INHALE CONTENTS OF 1 CAPSULE(S) WITH HANDIHALER ONCE DAILY Synthroid 112 mcg tablet RxNorm: 867107 Tablet(s) PO TA KE ONE TABLET BY MOUTH EVERY DAY 12/26/2012 04/09/2013 Inactive Endocet 10 mg-325 mg tablet RxNorm: 5871902 1-2 Tablet(s) PO Q4H 01/17/2013 Inactive PRN PAIN MS Contin 200 mg tablet,extended release RxNorm: 603855 1 Table t(s) PO BID 12/21/2012 01/17/2013 Inactive fluoxetine 20 mg capsule RxNorm: 166225 1 Capsule(s) PO QD 12/06/19 13 02/26/2013 Inactive Synthroid 112 mcg tablet RxNorm: 716625 1 Tablet(s) PO QD 12/06/2012 02/12/2019 Inactive TAKE ONE TABLET BY MOUTH EVERY DAY Ventolin HFA 90 mcg/actuation Aerosol Inhaler RxNorm: 682189 2 Puff(s) INH Q4H 12/06/2012 No Stop Date Active prn Reglan 10 mg tablet RxNorm: 910986 1 Tablet(s) PO QID b efore meals and at bedtime 11/24/2012 03/12/2013 Inactive Topamax 100 mg tablet RxNorm: 406653 1 Tablet(s) PO QHS 11/16/2012 Inactive Ventolin HFA 90 mcg/actuation Aerosol Inhaler RxNorm: 655592 2 Puff(s) INH Q4H 11/09/2012 No Stop Date Active prn gabapentin 800 mg tablet RxNorm: 394440 1 Tablet(s) PO QD 10/27/2012 04/09/2013 Inactive TAKE ONE TABLET BY MOUTH EVERY DAY metformin ER 500 mg tablet,extended release 24 hr RxNorm: 86 0977 1 Tablet(s) PO QD 10/27/2012 04/09/2013 Inactive TAKE ONE TABLET BY MOUTH EVERY DAY Symbicort 160 mcg-4.5 mcg/actuation HFA Aerosol Inhaler RxNo rm: 8952926 2 Puff(s) INH BID 10/27/2012 04/09/2013 Inactive INHALE 2 PUFFS O RALLY TWO TIMES A DAY Premarin 0.9 mg tablet RxNorm: 349408 1 Tablet(s) PO QD 10/27/2012 Inactive TAKE ONE TABLET BY MOUTH EVERY DAY Endocet 10 mg-325 mg tablet RxNorm: 8887460 1-2 Tablet(s) PO Q4H 11/24/2012 Inactive PRN PAIN MS Contin 200 mg tablet,extended release RxNorm: 781336 1 Table t(s) PO BID 10/26/2012 11/24/2012 Inactive Soma 350 mg tablet RxNorm: 737818 1 Tablet(s) PO TID 10/04/201211/02 Inactive TAKE ONE TABLET BY MOUTH THREE TIMES A D AY Ventolin HFA 90 mcg/actuation Aerosol Inhaler RxNorm: 349989 2 Puff(s) INH Q4H 10/03/2012 No Stop Date Active prn Daliresp 500 mcg tablet RxNorm: 3941868 1 Tablet(s) PO QD 09/28/2012 09/27/2012 Inactive Daliresp 500 mcg tablet RxNorm: 5252504 1 Tablet(s) PO QD 09/28/2012 04/25/2013 Inactive fluoxetine 20 mg capsule RxNorm: 573478 1 Capsule(s) PO QD 09/05/20 12 12/06/2012 Inactive Topamax 50 mg tablet RxNorm: 437737 Tablet(s) PO for 1w k then 1 po q HS for 1wk then 2 po q HS 08/29/2012 09/27/2012 Inactive TAKE 1/2 TABLET BY MOUTH AT BEDTIME FOR 1 WEEK, THEN 1 TABLET AT BEDTIME FOR 1 WEEK, THEN 2 TABLETS AT BEDTIME Topamax 100 mg tablet RxNorm: 605019 1 Tablet(s) PO QHS 08/29/2012 Inactive Ventolin HFA 90 mcg/actuation Aerosol Inhaler RxNorm: 653115 2 Puff(s) INH Q4H 08/19/2012 No Stop Date Active prn Ventolin HFA 90 mcg/actuation Aerosol Inhaler RxNorm: 756488 2 Puff(s) INH Q4H 08/15/2012 No Stop Date Active prn Synthroid 112 mcg tablet RxNorm: 869214 1 Tablet(s) PO QD 08/10/2012 11/07/2012 Inactive TAKE ONE TABLET BY MOUTH EVERY DAY Synthroid 112 mcg tablet RxNorm: 612773 1 Tablet(s) PO QD 08/01/2012 08/09/2012 Inactive TAKE ONE TABLET BY MOUTH EVERY DAY Reglan 10 mg tablet RxNorm: 352315 1 Tablet(s) PO QID b efore meals and at bedtime 08/01/2012 11/23/2012 Inactive fluoxetine 40 mg capsule RxNorm: 322221 1 Capsule(s) PO QD 08/01/20 12 01/27/2013 Inactive TAKE ONE CAPSULE BY MOUTH EV JANKI MORNING Ventolin HFA 90 mcg/actuation Aerosol Inhaler RxNorm: 151873 2 Puff(s) INH Q4H 08/01/2012 No Stop Date Active prn Soma 350 mg tablet RxNorm: 197785 1 Tablet(s) PO TID 07/20/201208/18 Inactive TAKE ONE TABLET BY MOUTH THREE TIMES A D AY Spiriva with HandiHaler 18 mcg & inhalation capsules RxNorm: 825035 1 Capsule(s) INH 07/01/2012 12/25/2012 Inactive INHALE CONTENTS OF 1 CAPSULE(S) WITH HANDIHALER ONCE DAILY Zithromax 250 mg Tab RxNorm: 908253 2 Tablet(s) PO QD 06/28/201206/22 Inactive MS Contin 200 mg tablet,extended release RxNorm: 631013 1 Table t(s) PO BID 06/28/2012 07/27/2012 Inactive Endocet 10 mg-325 mg tablet RxNorm: 1990625 1-2 Tablet(s) PO Q4H 07/27/2012 Inactive PRN PAIN Topamax 100 mg tablet RxNorm: 681086 1 Tablet(s) PO QHS 06/28/2012 Inactive 16.2 mg-0.1037 mg-0.0194 mg tablet RxNorm: 0667199 Tablet(s) PO PRN for gas and cramping 06/08/2012 08/23/2013 Inactive TAKE TWO TABLET S BY MOUTH THREE TIMES A DAY NEEDED FOR GAS AND CRAMPING Ventolin HFA 90 mcg/actuation Aerosol Inhaler RxNorm: 520050 2 Puff(s) INH Q4H 05/23/2012 No Stop Date Active prn Ventolin HFA 90 mcg/actuation Aerosol Inhaler RxNorm: 146153 2 Puff(s) INH Q4H 05/11/2012 No Stop Date Active prn Synthroid 112 mcg tablet RxNorm: 864989 1 Tablet(s) PO QD 05/09/2012 07/31/2012 Inactive TAKE ONE TABLET BY MOUTH EVERY DAY gabapentin 800 mg tablet RxNorm: 263342 1 Tablet(s) PO QD 05/09/2012 10/26/2012 Inactive TAKE ONE TABLET BY MOUTH EVERY DAY fluoxetine 40 mg capsule RxNorm: 232636 1 Capsule(s) PO QD 05/09/2007/31/2012 Inactive TAKE ONE CAPSULE BY MOUTH EV JANKI MORNING metformin ER 500 mg tablet,extended release 24 hr RxNorm: 86 0977 1 Tablet(s) PO QD 05/09/2012 10/26/2012 Inactive TAKE ONE TABLET BY MOUTH EVERY DAY Premarin 0.9 mg tablet RxNorm: 690567 1 Tablet(s) PO QD 05/09/2012 Inactive TAKE ONE TABLET BY MOUTH EVERY DAY Symbicort 160 mcg-4.5 mcg/actuation HFA Aerosol Inhaler RxNo rm: 5369452 2 Puff(s) INH BID 05/09/2012 10/26/2012 Inactive INHALE 2 PUFFS O RALLY TWO TIMES A DAY Endocet 10 mg-325 mg Tab RxNorm: 1200407 1-2 Tablet(s) PO Q4H 04/2705/26/2012 Inactive PRN PAIN MS Contin 200 mg Tab RxNorm: 671810 1 Tablet(s) PO BID 04/26/201202/2012 Inactive Ventolin HFA 90 mcg/actuation Aerosol Inhaler RxNorm: 668433 2 Puff(s) INH Q4H 04/25/2012 05/10/2012 Inactive prn Soma 350 mg tablet RxNorm: 254449 2 Tablet(s) PO TID 04/19/201207/19 Inactive TAKE ONE TABLET BY MOUTH THREE TIMES A D AY Ventolin HFA 90 mcg/actuation Aerosol Inhaler RxNorm: 474253 2 Puff(s) INH Q4H 04/12/2012 04/24/2012 Inactive prn Reglan 10 mg tablet RxNorm: 713545 1 Tablet(s) PO QID b efore meals and at bedtime 04/11/2012 07/31/2012 Inactive MS Contin 200 mg Tab RxNorm: 360097 1 Tablet(s) PO BID 03/30/201202/2012 Inactive Endocet 10 mg-325 mg Tab RxNorm: 3535824 1-2 Tablet(s) PO Q4H 03/3004/26/2012 Inactive PRN PAIN MS Contin 200 mg Tab RxNorm: 310587 1 Tablet(s) PO BID 03/02/201206/2012 Inactive Endocet 10 mg-325 mg Tab RxNorm: 2102388 1-2 Tablet(s) PO Q4H 03/0203/29/2012 Inactive PRN PAIN Daliresp 500 mcg tablet RxNorm: 3568363 1 Tablet(s) PO QD 03/01/2012 09/28/2012 Inactive MS Contin 200 mg Tab RxNorm: 287979 1 Tablet(s) PO BID 02/02/201208/2012 Inactive Endocet 10 mg-325 mg Tab RxNorm: 1346516 1-2 Tablet(s) PO Q4H 02/0103/01/2012 Inactive PRN PAIN fluoxetine 40 mg capsule RxNorm: 333329 1 Capsule(s) PO QD 02/02/2008/01/2012 Inactive TAKE ONE CAPSULE BY MOUTH EV JANKI MORNING Synthroid 112 mcg Tab RxNorm: 268584 1 Tablet(s) PO QD 01/18/2012 Inactive TAKE ONE TABLET BY MOUTH EVERY DAY lactulose 10 gram/15 mL oral solution RxNorm: 253906 [address]s) PO QD 01/18/2012 No Stop Date Active TAKE 1 TABLESPOON BY MOUTH ONCE DAILY Ventolin HFA 90 mcg/actuation Aerosol Inhaler RxNorm: 219228 2 Puff(s) INH Q4H 01/18/2012 04/11/2012 Inactive prn MS Contin 200 mg Tab RxNorm: 476237 1 Tablet(s) PO BID 01/05/201210/2012 Inactive Endocet 10 mg-325 mg Tab RxNorm: 9443634 1-2 Tablet(s) PO Q4H 01/0502/01/2012 Inactive PRN PAIN ProAir HFA 90 mcg/Actuation Aerosol Inhaler RxNorm: 016316 2 Pu ff(s) INH Q4H 12/21/2011 No Stop Date Active prn for wheezing or shortness of breath Spiriva with HandiHaler 18 mcg & inhalation Caps RxNorm: 580 261 1 Capsule(s) INH 12/21/2011 06/30/2012 Inactive INHALE CONTENTS OF 1 CAPSULE(S) WITH HANDIHALER ONCE DAILY Reglan 10 mg Tab RxNorm: 251731 1 Tablet(s) PO QID before meals and at bedtime 12/21/2011 04/10/2012 Inactive Synthroid 112 mcg Tab RxNorm: 717138 1 Tablet(s) PO QD 12/21/2011 Inactive TAKE ONE TABLET BY MOUTH EVERY DAY Endocet 10 mg-325 mg Tab RxNorm: 8820084 1-2 Tablet(s) PO Q4H 11/2512/24/2011 Inactive PRN PAIN MS Contin 200 mg Tab RxNorm: 204031 1 Tablet(s) PO BID 11/25/201112/2011 Inactive lactulose 10 gram/15 mL Oral Soln RxNorm: 737870 Milliliter(s) PO 1 No Stop Date Active TAKE 1 TABLESPOON BY MOUTH O NCE DAILY lactulose 10 gram/15 mL Oral Soln RxNorm: 020798 Milliliter(s) PO 1 12/12/2010 11/20/2011 Inactive TAKE 1 TABLESPOON BY MOUTH O NCE DAILY Premarin 0.9 mg Tab RxNorm: 542856 1 Tablet(s) PO QD 10/12/201105/08 Inactive TAKE ONE TABLET BY MOUTH EVERY DAY fluoxetine 20 mg capsule RxNorm: 058780 1 Capsule(s) PO QD 10/12/2009/05/2012 Inactive TAKE ONE CAPSULE BY MOUTH EV JANKI DAY Synthroid 112 mcg Tab RxNorm: 843969 1 Tablet(s) PO QD 10/12/2011 Inactive TAKE ONE TABLET BY MOUTH EVERY DAY metformin ER 500 mg 24 hr Tab RxNorm: 374853 1 Tablet(s) PO QD 09/2311/10/2011 Inactive TAKE ONE TABLET BY MOUTH GLYNN RY DAY Synthroid 112 mcg Tab RxNorm: 940674 1 Tablet(s) PO QD 10/12/2011 Inactive TAKE ONE TABLET BY MOUTH EVERY DAY metformin ER 500 mg 24 hr Tab RxNorm: 640536 1 Tablet(s) PO QD 09/2310/11/2011 Inactive TAKE ONE TABLET BY MOUTH GLYNN RY DAY Prevacid 30 mg Cap RxNorm: 768386 Capsule(s) PO 10/12/2011 01/25/2012 Inactive TAKE ONE CAPSULE BY MOUTH EVERY DAY Symbicort 160 mcg-4.5 mcg/actuation HFA Aerosol Inhaler RxNo rm: 5259771 2 Puff(s) INH BID 10/12/2011 05/08/2012 Inactive INHALE 2 PUFFS O RALLY TWO TIMES A DAY gabapentin 800 mg Tab RxNorm: 080987 1 Tablet(s) PO QD 10/12/2011 Inactive TAKE ONE TABLET BY MOUTH EVERY DAY MS Contin 200 mg Tab RxNorm: 052725 1 Tablet(s) PO BID 09/23/201111/2010 Inactive Endocet 10 mg-325 mg Tab RxNorm: 6365426 1-2 Tablet(s) PO Q4H 09/2310/22/2011 Inactive PRN PAIN Endocet 10 mg-325 mg Tab RxNorm: 1987033 1-2 Tablet(s) PO Q4H 08/2109/19/2011 Inactive PRN PAIN MS Contin 200 mg Tab RxNorm: 722876 1 Tablet(s) PO BID 08/21/2011 Inactive Diflucan 100 mg Tab RxNorm: 462745 1 Tablet(s) PO QD 08/10/201108/16 Inactive cefdinir 300 mg Cap RxNorm: 708283 2 Capsule(s) PO QD 08/10/201107/24 Inactive Reglan 10 mg Tab RxNorm: 716735 1 Tablet(s) PO AC & HS 07/15/2011 Inactive Endocet 10 mg-325 mg Tab RxNorm: 6118500 1-2 Tablet(s) PO Q4H 07/1508/13/2011 Inactive PRN PAIN One Touch Ultra Test strips RxNorm: Miscellaneous BID 06/11/2011 1 01/16/2014 Inactive TEST TWO TIMES A DAY lactulose 10 gram/15 mL Oral Soln RxNorm: 126459 Milliliter(s) PO 0 06/10/2011 10/11/2011 Inactive TAKE 1 TABLESPOON BY MOUTH O NCE DAILY Chantix Continuing Month Aníbal 1 mg Tab RxNorm: 974934 Tablet(s) PO 0 06/10/2011 11/02/2011 Inactive TAKE DIRECTED - PER PACK[employer] GE INSTRUCTIONS fluoxetine 40 mg Cap RxNorm: 453205 Capsule(s) PO 06/10/2011 02/02/20 12 Inactive TAKE ONE CAPSULE BY MOUTH EVERY MORNING Chantix Continuing Month Aníbal 1 mg Tab RxNorm: 088520 Ta blet(s) PO TAKE DIRECTED - PER PACKAGE INSTRUCTIONS 05/13/2011 06/09/2011 Inactive Soma 350 mg Tab RxNorm: 160575 Tablet(s) PO TAKE ON E TABLET BY MOUTH THREE TIMES A DAY 05/13/2011 04/18/2012 Inactive Chantix Continuing Month Aníbal 1 mg Tab RxNorm: 513227 Ta blet(s) PO as directed per package instructions. 04/22/2011 05/12/2011 Inactive Symbicort 160 mcg-4.5 mcg/Actuation HFA Aerosol Inhaler RxNo rm: 6789888 HFA Aerosol Inhaler INH INHALE 2 PUFFS ORALLY TWO TIMES A DAY 04/13/2011 Inactive Synthroid 112 mcg Tab RxNorm: 049423 Tablet(s) PO TAKE ONE TABLET BY MOUTH EVERY DAY 04/13/2011 10/12/2011 Inactive Premarin 0.9 mg Tab RxNorm: 662142 Tablet(s) PO TAKE ON E TABLET BY MOUTH EVERY DAY 04/13/2011 10/12/2011 Inactive gabapentin 800 mg Tab RxNorm: 643213 Tablet(s) PO TAKE ONE TABLET BY MOUTH EVERY DAY 04/13/2011 10/12/2011 Inactive Prevacid 30 mg Cap RxNorm: 389459 1 Capsule(s) PO QD 04/13/201110/11 Inactive Spiriva with HandiHaler 18 mcg & inhalation Caps RxNorm: 580 261 Capsule(s) INH INHALE CONTENTS OF 1 CAPSULE(S) WITH HANDIHALER ONCE DAILY 04/13/2011 12/21/2011 Inactive metformin ER 500 mg 24 hr Tab RxNorm: 921425 Tablet(s) PO TAKE ONE TABLET BY MOUTH EVERY DAY 04/13/2011 10/12/2011 Inactive Soma 350 mg Tab RxNorm: 040547 1 Tablet(s) PO QID 03/30/2011 02/13/20 19 Inactive fluoxetine 20 mg Cap RxNorm: 429289 Capsule(s) PO TAKE ONE CAPSULE BY MOUTH EVERY DAY 03/25/2011 10/12/2011 Inactive cefdinir 300 mg Cap RxNorm: 550626 2 Capsule(s) PO QD 03/19/201105/2011 Inactive 16.2 mg-0.1037 mg-0.0194 mg Tab RxNorm: 2081694 2 Tablet(s) PO TID PRN for gas and cramping 03/16/2011 07/13/2011 Inactive Soma 350 mg Tab RxNorm: 385101 2 Tablet(s) PO TID 03/16/2011 03/29/20 11 Inactive Chantix Starting Month Aníbal 0.5 mg (11)-1 mg (3x14) Tab s in a Dose Pack RxNorm: 204761 Tablet(s) PO as directed 03/02/2011 No Stop Date Active diazepam 10 mg Tab RxNorm: 502531 1 Tablet(s) PO BID 02/10/201101/19 Inactive Zofran 4 mg tablet RxNorm: 451594 1 Tablet(s) PO Q4H prn nausea 02/16/2011 Inactive Diflucan 100 mg Tab RxNorm: 083094 1 Tablet(s) PO QD 01/18/201101/24 Inactive Premarin 0.625 mg/g Vaginal Cream RxNorm: 952591 VAG In sert 1gm vaginally at bedtime 3 times weekly 01/18/2011 02/12/2019 Inactive loratadine 10 mg Tab RxNorm: 0565083 1 Tablet(s) PO QD 12/17/201003/2012 Inactive Spiriva with HandiHaler 18 mcg & inhalation Caps RxNorm: 580 261 1 Capsule(s) INH QD 12/17/2010 04/12/2011 Inactive Diflucan 100 mg Tab RxNorm: 627756 1 Tablet(s) PO QD 12/17/201012/23 Inactive diazepam 10 mg Tab RxNorm: 002562 1 Tablet(s) PO BID and PRN 201002/12/2019 Inactive One Touch Ultra Test Strips RxNorm: InVt BID Zainab t blood sugar at least twice daily. 11/11/2010 06/11/2011 Inactive fluoxetine 40 mg Cap RxNorm: 594035 1 Capsule(s) PO QAM 11/11/2010 Inactive diazepam 10 mg Tab RxNorm: 588095 1 Tablet(s) PO BID and PRN 200911/12/2010 Inactive Bactrim DS 800 mg-160 mg Tab RxNorm: 496957 1 Tablet(s) PO BID 09/2210/15/2010 Inactive fluoxetine 20 mg Cap RxNorm: 915288 1 Capsule(s) PO QD 10/02/201008/2011 Inactive Bactrim DS 800 mg-160 mg Tab RxNorm: 710001 1 Tablet(s) PO BID 01/201010/03/2010 Inactive Zofran 4 mg Tab RxNorm: 383623 1 Tablet(s) PO Q4H prn nausea 200910/16/2010 Inactive 16.2 mg-0.1037 mg-0.0194 mg Tab RxNorm: 3339488 2 Tablet(s) PO TID PRN for gas and cramping 09/17/2010 10/21/2010 Inactive Gabapentin 800 mg Tab RxNorm: 696801 1 Tablet(s) PO QD 09/16/2010 Inactive ProAir HFA 90 mcg/Actuation Aerosol Inhaler RxNorm: 866343 2 Puff(s) INH Q4H prn shortness of breath 09/15/2010 12/13/2010 Inactive gabapentin 800 mg Tab RxNorm: 404516 1 Tablet(s) PO QD 09/15/2010 Inactive Prevacid 30 mg Cap RxNorm: 541459 1 Capsule(s) PO QD 09/15/201004/12 Inactive loratadine 10 mg Tab RxNorm: 4356116 1 Tablet(s) PO QD 09/15/2010 Inactive Premarin 0.9 mg Tab RxNorm: 756041 1 Tablet(s) PO QD 09/15/201004/12 Inactive Synthroid 112 mcg Tab RxNorm: 588208 1 Tablet(s) PO QD 09/15/2010 Inactive metformin ER 500 mg 24 hr Tab RxNorm: 392592 1 Tablet(s) PO QD 08/2304/12/2011 Inactive Symbicort 160 mcg-4.5 mcg/Actuation Inhalation HFA Aer osol Inhaler RxNorm: [id number] 2 Puff(s) INH BID 09/15/2010 04/12/2011 Inactive diazepam 10 mg Tab RxNorm: 078732 1 Tablet(s) PO BID and PRN 200910/13/2010 Inactive Phentermine 37.5 mg Cap RxNorm: 092311 1 Capsule(s) PO QD 09/02/2010 11/02/2011 Inactive ProAir HFA 90 mcg/Actuation Aerosol Inhaler RxNorm: 392684 2 Puff(s) INH Q4H prn shortness of breath 08/07/2010 No Stop Date Active Premarin 0.9 mg Tab RxNorm: 007804 1 Tablet(s) PO QD 08/07/201009/14 Inactive Loratadine 10 mg Tab RxNorm: 8250392 1 Tablet(s) PO QD 08/07/2010 Inactive Lactulose 10 gram/15 mL Oral Soln RxNorm: 264717 1 Unit Dose PO QD 08/07/2010 02/12/2019 Inactive Zofran 4 mg Tab RxNorm: 967963 1 Tablet(s) PO Q4H prn nausea 2009 No Stop Date Active Gabapentin 800 mg Tab RxNorm: 893148 1 Tablet(s) PO QD 08/07/2010 Inactive Synthroid 112 mcg Tab RxNorm: 588315 1 Tablet(s) PO QD 08/07/2010 Inactive Metformin ER 500 mg 24 hr Tab RxNorm: 575059 1 Tablet(s) PO QD 07/2309/14/2010 Inactive Vitamin D 1,000 unit Tab RxNorm: 125356 1 Tablet(s) PO TID 08/07/20 10 02/12/2019 Inactive Symbicort 160 mcg-4.5 mcg/Actuation Inhalation HFA Aer osol Inhaler RxNorm: 6789088 2 Puff(s) INH BID 08/07/2010 09/14/2010 Inactive Prevacid 30 mg Cap RxNorm: 035455 1 Capsule(s) PO QD 08/07/201009/14 Inactive Metformin ER 500 mg 24 hr Tab RxNorm: 466096 1 Tablet(s) PO QD 06/2308/06/2010 Inactive Vitamin D 1,000 unit Tab RxNorm: 698542 1 Tablet(s) PO TID 07/14/2008/06/2010 Inactive Synthroid 112 mcg Tab RxNorm: 508322 1 Tablet(s) PO QD 07/14/2010 Inactive Lactulose 10 gram/15 mL Oral Soln RxNorm: 977219 1 Unit Dose PO QD 07/14/2010 08/06/2010 Inactive Levaquin 500 mg Tab RxNorm: 580463 1 Tablet(s) PO QD 07/14/201007/27 Inactive Premarin 0.9 mg Tab RxNorm: 824064 1 Tablet(s) PO QD 07/14/201008/06 Inactive ProAir HFA 90 mcg/Actuation Aerosol Inhaler RxNorm: 754350 2 Puff(s) INH Q4H prn shortness of breath 07/14/2010 No Stop Date Active Prevacid 30 mg Cap RxNorm: 869635 1 Capsule(s) PO QD 07/14/201008/06 Inactive Zofran 4 mg Tab RxNorm: 415966 1 Tablet(s) PO Q4H prn nausea 2009 No Stop Date Active Symbicort 160 mcg-4.5 mcg/Actuation Inhalation HFA Aer osol Inhaler RxNorm: 6194039 2 Puff(s) INH BID 07/14/2010 08/06/2010 Inactive Loratadine 10 mg Tab RxNorm: 2431282 1 Tablet(s) PO QD 07/14/2010 Inactive Gabapentin 800 mg Tab RxNorm: 351164 1 Tablet(s) PO QD 07/14/2010 Inactive Metformin ER 500 mg 24 hr Tab RxNorm: 928457 1 Tablet(s) PO 010 07/13/2010 Inactive Diazepam 10 mg Tab RxNorm: 197561 1 Tablet(s) PO BID and PRN 200909/06/2010 Inactive Premarin 0.9 mg Tab RxNorm: 661196 1 Tablet(s) PO QD 06/09/201007/13 Inactive Zofran 4 mg Tab RxNorm: 478597 1 Tablet(s) PO Q4H prn nausea 2009 No Stop Date Active ProAir HFA 90 mcg/Actuation Aerosol Inhaler RxNorm: 645540 2 Puff(s) INH Q4H prn shortness of breath 06/09/2010 No Stop Date Active Gabapentin 800 mg Tab RxNorm: 349948 1 Tablet(s) PO QD 06/09/2010 Inactive Loratadine 10 mg Tab RxNorm: 5292779 1 Tablet(s) PO QD 06/09/2010 Inactive Lactulose 10 gram/15 mL Oral Soln RxNorm: 038312 1 Unit Dose PO QD 06/09/2010 07/13/2010 Inactive Prevacid 30 mg Cap RxNorm: 667739 1 Capsule(s) PO QD 06/09/201007/13 Inactive Synthroid 112 mcg Tab RxNorm: 494455 1 Tablet(s) PO QD 06/09/2010 Inactive Symbicort 160 mcg-4.5 mcg/Actuation Inhalation HFA Aer osol Inhaler RxNorm: 3263851 2 Puff(s) INH BID 06/09/2010 07/13/2010 Inactive Omnicef 300 mg Cap RxNorm: 384369 2 Capsule(s) PO QD 05/07/201005/20 Inactive Metformin 500 mg Tab RxNorm: 600904 1 Tablet(s) PO QD 05/06/201005/22 Inactive ProAir HFA 90 mcg/Actuation Aerosol Inhaler RxNorm: 864913 2 Puff(s) INH Q4H prn shortness of breath 05/06/2010 No Stop Date Active lactulose 10 gram/15 mL Oral Soln RxNorm: 982012 1 Unit Dose PO QD 05/06/2010 06/10/2011 Inactive Loratadine 10 mg Tab RxNorm: 7116242 1 Tablet(s) PO QD 05/06/2010 Inactive Synthroid 112 mcg Tab RxNorm: 036483 1 Tablet(s) PO QD 05/06/2010 Inactive Symbicort 160 mcg-4.5 mcg/Actuation Inhalation HFA Aer osol Inhaler RxNorm: 6909561 2 Puff(s) INH BID 05/06/2010 06/08/2010 Inactive Gabapentin 800 mg Tab RxNorm: 367010 1 Tablet(s) PO QD 05/06/2010 Inactive 16.2 mg-0.1037 mg-0.0194 mg Tab RxNorm: 4017241 2 Tablet(s) PO TID PRN for gas and cramping 05/06/2010 05/12/2010 Inactive Zofran 4 mg Tab RxNorm: 407240 1 Tablet(s) PO Q4H prn nausea 200904/13/2010 Inactive MS Contin 60 mg Tab RxNorm: 536357 3 Tablet(s) PO BID 04/09/201004/22 Inactive Soma 350 mg Tab RxNorm: 815295 2 Tablet(s) PO TID 04/09/2010 05/08/20 10 Inactive Symbicort 160 mcg-4.5 mcg/Actuation Inhalation HFA Aer osol Inhaler RxNorm: 0222346 2 Puff(s) INH BID 04/08/2010 05/05/2010 Inactive Doxycycline 100 mg Cap RxNorm: 0754766 1 Capsule(s) PO BID 04/08/20 10 04/17/2010 Inactive Triamterene-Hydrochlorothiazide 37.5 mg-25 mg Cap RxNorm: 19 8316 1 Capsule(s) PO QAM 04/08/2010 09/04/2010 Inactive fluoxetine 40 mg Cap RxNorm: 975708 1 Capsule(s) PO QAM 04/08/2010 Inactive Morphine SR 120 mg multiphase 24 hr Cap RxNorm: 528308 1 Capsul e(s) PO 03/11/2010 04/07/2010 Inactive Endocet 10 mg-325 mg Tab RxNorm: 7358469 1-2 Tablet(s) PO Q4H IN N PAIN 03/11/2010 04/09/2010 Inactive Savella 100 mg Tab RxNorm: 205763 1 Tablet(s) PO BID 03/10/201004/09 Inactive Soma 350 mg Tab RxNorm: 303182 1 Tablet(s) PO TID prn spasm 010 04/09/2010 Inactive Savella 100 mg Tab RxNorm: 733999 1 Tablet(s) PO BID 02/03/201004/09 Inactive Aspirin 81 mg Tab RxNorm: 416026 1 Tablet(s) PO QD No Start Date Active Zyrtec 10 mg Tab RxNorm: 8737250 1 Tablet(s) PO QD No Start Date Active One Touch Ultra Test Strips RxNorm: Misc test at least t wice daily. No Start Date Active coenzyme Q10 200 mg capsule RxNorm: 460611 1 Capsule(s) PO QD No Star t Date Active One Touch Ultra Test Strips RxNorm: InVt BID Zainab t blood sugar at least twice daily. No Start Date 11/10/2010 Inactive Gabapentin 800 mg Tab RxNorm: 417744 1 Tablet(s) PO QD No Start Date 05/05/2010 Inactive Abilify 5 mg tablet RxNorm: 726289 1 Tablet(s) PO QD No Start Date Inactive Chantix 1 mg Tab RxNorm: 871197 1 Tablet(s) PO BID No Start Date 10/22 Inactive Ozempic 0.25 mg or 0.5 mg (2 mg/1.5 mL) subcutaneous p en injector RxNorm: 4571428 .25 Milligram(s) SQ QW No Start Date 07/04/2019 Inactive lancets 28 gauge RxNorm: Miscellaneous As needed for blo od glucose sticks No Start Date 08/23/2013 Inactive potassium chloride ER 20 mEq tablet,extended release RxNorm: 647754 2 Tablet(s) PO QD No Start Date 09/26/2018 Inactive Ventolin HFA 90 mcg/actuation Aerosol Inhaler RxNorm: 832479 2 Puff(s) INH Q4H prn No Start Date 01/17/2012 Inactive potassium chloride ER 20 mEq tablet,extended release RxNorm: 175432 2 Tablet(s) PO QD No Start Date 10/19/2018 Inactive Januvia 100 mg tablet RxNorm: 478350 1 Tablet(s) PO QD No Start Date 09/10/2015 Inactive Medrol (Aníbal) 4 mg Tabs in a Dose Pack RxNorm: 114305 Tablet(s) PO N o Start Date 08/09/2011 Inactive as directed Zithromax Z-Aníbal 250 mg Tab RxNorm: 149646 Tablet(s) PO No Start Date 01/25/2012 Inactive as directed vitamin B6-vitamin E-magnesium tablet RxNorm: 1 Tablet(s ) PO QHS with INH No Start Date 03/30/2018 Inactive prednisone 20 mg Tab RxNorm: 427720 1 Tablet(s) PO TID for 1wk then 1 po BID for 1wk No Start Date 01/25/2012 Inactive furosemide 40 mg tablet RxNorm: 261853 1 Tablet(s) PO QAM No Start Date 10/09/2018 Inactive Vitamin D3 1000 units Capsule RxNorm: 1 Capsule(s) PO TID No S tart Date 03/19/2015 Inactive Zofran 4 mg Tab RxNorm: 270382 1 Tablet(s) PO Q4H prn nausea No Sta rt Date 04/13/2010 Inactive Premarin 0.625 mg/g Vaginal Cream RxNorm: 284749 1 Gram (s) VAG QHS 3 times a week No Start Date 09/22/2017 Inactive oxycodone 10 mg tablet RxNorm: 7494040 1-2 Tablet(s) PO QID as n eeded for pain No Start Date 11/04/2015 Inactive Nicoderm CQ 21 mg/24 hr daily Patch RxNorm: 673372 1 Applicatio n TD QD No Start Date 08/05/2015 Inactive Topamax 50 mg tablet RxNorm: 230632 1/2 Tablet(s) PO QH S for 1wk then 1 po q HS for 1wk then 2 po q HS No Start Date 06/27/2012 Inactive Chantix Starting Month Aníbal 0.5 mg (11)-1 mg (3x14) Tab s in a Dose Pack RxNorm: 580204 Tablet(s) PO as directed No Start Date 03/01/2011 Inactive Trulicity 0.75 mg/0.5 mL subcutaneous pen injector RxNorm: 1 192479 Milliliter(s) SQ No Start Date 07/04/2019 Inactive Medrol (Aníbal) 4 mg Tabs in a Dose Pack RxNorm: 642786 Tablet(s) PO N o Start Date 01/25/2012 Inactive as directed Duragesic 100 mcg/hr Transderm Patch RxNorm: 301678 2 A pplication TD Q48H for pain No Start Date 09/05/2013 Inactive Premarin 0.9 mg Tab RxNorm: 527137 1 Tablet(s) PO QD No Start Date Inactive Zithromax Z-Aníbal 250 mg Tab RxNorm: 774661 Tablet(s) PO as direc chinmay No Start Date 01/25/2012 Inactive ondansetron 8 mg disintegrating tablet RxNorm: 713074 1 Tablet(s) PO Q6H as needed No Start Date 10/10/2018 Inactive oxycodone 15 mg tablet RxNorm: 0590730 1 Tablet(s) PO QID as nee ded for pain No Start Date 03/05/2019 Inactive ProAir HFA 90 mcg/Actuation Aerosol Inhaler RxNorm: 029090 2 Puff(s) INH Q4H prn for wheezing or shortness of breath No Start Date 12/21/2011 Inactive pravastatin 40 mg tablet RxNorm: 667913 1/2 Tablet(s) PO QOD No Sta rt Date 04/09/2015 Inactive ipratropium-albuterol 0.5 mg-3 mg(2.5 mg base)/3 mL ne bulization soln RxNorm: 7259023 1 Unit Dose INH Q4H as needed No Start Date 09/09/2016 Inactive furosemide 40 mg tablet RxNorm: 182001 1 Tablet(s) PO QAM as ne eded No Start Date 09/24/2019 Inactive Vitamin D2 oral RxNorm: 4018 oral No Start Date 03/18/2015 Inacti ve pravastatin 40 mg tablet RxNorm: 172905 1/2 Tablet(s) PO QD No Star t Date 04/09/2015 Inactive ondansetron HCl 4 mg tablet RxNorm: 817165 1 Tablet(s) PO Q4H as needed for nausea and vomiting No Start Date 04/07/2016 Inactive furosemide 40 mg tablet RxNorm: 012054 2 Tablet(s) PO QAM No Start Date 09/26/2018 Inactive gabapentin 800 mg tablet RxNorm: 388688 1/2 Tablet(s) PO BID No Sta rt Date 06/21/2017 Inactive gabapentin 800 mg tablet RxNorm: 114329 1/2 Tablet(s) PO BID No Sta rt Date 07/05/2017 Inactive ProAir HFA 90 mcg/Actuation Aerosol Inhaler RxNorm: 513836 2 Puff(s) INH Q4H prn shortness of breath No Start Date 05/05/2010 Inactive scopolamine 1 mg over 3 days transdermal patch RxNorm: 56034 2 1 Application TD behind ear. Take off after three days No Start Date 10/10/2018 Inactive Metformin 500 mg Tab RxNorm: 244141 1 Tablet(s) PO QD No Start Date 0 05/05/2010 Inactive MS Contin 200 mg Tab RxNorm: 897778 1 Tablet(s) PO BID No Start Date 08/20/2011 Inactive Belladonna-Phenobarbital 48 mg tablet,extended release RxNor m: 2 Tablet(s) PO TID No Start Date 06/04/2016 Inactive Synthroid 112 mcg Tab RxNorm: 698788 1 Tablet(s) PO QD No Start Date 05/05/2010 Inactive Zegerid 40 mg-1.1 gram Cap RxNorm: 536252 1 Capsule(s) PO QD No Sta rt Date 01/25/2012 Inactive Premarin 0.625 mg/g Vaginal Cream RxNorm: 469912 VAG In sert 1gm vaginally at bedtime 3 times weekly No Start Date 01/17/2011 Inactive potassium chloride ER 20 mEq tablet,extended release RxNorm: 510541 1 Tablet(s) PO QD No Start Date 04/24/2019 Inactive methocarbamol 750 mg tablet RxNorm: 352769 2 Tablet(s) PO TID as needed for muscle spasm No Start Date 07/08/2014 Inactive Biaxin XL Aníbal 500 mg 24 hr Tab RxNorm: 507459 Tablet(s) PO as d irected No Start Date 04/24/2013 Inactive Vitamin D3 1,000 unit tablet RxNorm: 441318 3 Tablet(s) PO QD No St art Date 06/01/2017 Inactive Morphine SR 120 mg multiphase 24 hr Cap RxNorm: 692805 1 Capsul e(s) PO BID No Start Date 04/09/2010 Inactive Silvadene 1 % topical cream RxNorm: 524943 1 Application TOP BI D to burn area No Start Date 01/31/2017 Inactive Prednisone 20 mg Tab RxNorm: 456887 1 Tablet(s) PO TID for 3days then BID for 4days No Start Date 01/25/2012 Inactive gabapentin 600 mg tablet RxNorm: 532289 1 Tablet(s) PO BID No Start Date 01/21/2015 Inactive topiramate 50 mg tablet RxNorm: 969829 1 Tablet(s) PO QHS No Start Date 03/30/2018 Inactive Januvia 100 mg tablet RxNorm: 242342 1/2 Tablet(s) PO QD No Start D ate 12/25/2015 Inactive Diazepam 10 mg Tab RxNorm: 884821 1 Tablet(s) PO BID and PRN No Sta rt Date 06/08/2010 Inactive Medication Administered No Medication Administered data Immunizations Vaccine Codes Date Status Influenza CVX: 141 09/28/2012 Pneumovax Unknown 09/28/2012 Influenza (Adult) CVX: 141 09/02/2010 Results No Results data Procedures Procedure Codes Date THER/PROPH/DIAG INJ SC/IM CPT-4: 97419 07/10/2019 METHYLPREDNISOLONE INJECTION CPT-4: J2930 07/10/2019 URINALYSIS NONAUTO W/O SCOPE CPT-4: 64342 09/06/2018 URINE CULTURE/ COLONY COUNT CPT-4: 22417 09/06/2018 DRAIN/INJECT JOINT/BURSA CPT-4: 56146 04/29/2017 TRIAMCINOLONE ACET INJ NOS CPT-4: J3301 04/29/2017 DEXAMETHASONE SODIUM PHOS CPT-4: J1100 04/29/2017 INFLUENZA ASSAY W/OPTIC CPT-4: 09764 12/01/2016 RESPIRATORY CULTURE & STAIN CPT-4: 25882 07/09/2016 TB INTRADERMAL TEST CPT-4: 75706 04/21/2016 DRAIN/INJECT JOINT/BURSA CPT-4: 82765 11/07/2013 METHYLPREDNISOLONE 40 MG INJ CPT-4: J1030 11/07/2013 TRIAMCINOLONE ACET INJ NOS CPT-4: J3301 11/07/2013 DRAIN/INJECT JOINT/BURSA CPT-4: 57035 08/08/2013 METHYLPREDNISOLONE 40 MG INJ CPT-4: J1030 08/08/2013 TRIAMCINOLONE ACET INJ NOS CPT-4: J3301 08/08/2013 FLU VACCINE 3 YRS & > IM UP 64 CPT-4: 69276 2 PNEUMOCOCCAL VACC 23 ADITYA IM CPT-4: 40603 09/28/2012 IMMUNIZATION ADMIN CPT-4: 89064 09/28/2012 IMMUNIZATION ADMIN EACH ADD CPT-4: 54849 09/28/2012 FLU VACCINE 3 YRS & > IM UP 64 CPT-4: 47935 0 IMMUNIZATION ADMIN CPT-4: 95537 09/02/2010 METHYLPREDNISOLONE INJECTION CPT-4: J2930 05/07/2010 THER/PROPH/DIAG INJ SC/IM CPT-4: 92385 05/07/2010 Vital Signs Date Vital 11/29/2019 Blood [...] 1: 122/78 Code: 8480-6 BMI: 29.5 Code: 73445-0 Heart Rate 1: 76 bpm Height: 5'4" Respiratory Rate: 20 bpm SpO2: 96% Tempera ture: 37.0 (C) / 98.6 (F) Weight: 172 lbs 01/25/2019 Blood Pressure 1: 132/80 Code: 8480-6 BMI: 29.7 Code: 28346-3 Heart Rate 1: 84 bpm Height: 5'4" Respiratory Rate: 22 bpm SpO2: 98% Tempera ture: 36.9 (C) / 98.4 (F) Weight: 173 lbs 01/03/2019 Blood Pressure 1: 116/70 Code: 8480-6 BMI: 29.5 Code: 91044-3 Heart Rate 1: 92 bpm Height: 5'4" Respiratory Rate: 24 bpm SpO2: 98% Tempera ture: 37.2 (C) / 98.9 (F) Weight: 172 lbs 11/21/2018 Blood Pressure 1: 146/82 Code: 8480-6 BMI: 28.2 Code: 84436-7 Heart Rate 1: 88 bpm Height: 5'4" Respiratory Rate: 22 bpm SpO2: 97% Tempera ture: 36.9 (C) / 98.4 (F) Weight: 164 lbs 10/27/2018 Blood Pressure 1: 122/70 Code: 8480-6 BMI: 27.6 Code: 82792-2 Heart Rate 1: 88 bpm Height: 5'4" Respiratory Rate: 20 bpm SpO2: 96% Tempera ture: 36.8 (C) / 98.3 (F) Weight: 161 lbs 10/18/2018 Blood Pressure 1: 126/70 Code: 8480-6 BMI: 28.3 Code: 52059-3 Heart Rate 1: 76 bpm Height: 5'4" Respiratory Rate: 20 bpm SpO2: 95% Tempera ture: 37.0 (C) / 98.6 (F) Weight: 165 lbs 09/27/2018 Blood Pressure 1: 124/78 Code: 8480-6 BMI: 27.1 Code: 20989-7 Heart Rate 1: 88 bpm Height: 5'4" Respiratory Rate: 20 bpm SpO2: 98% Tempera ture: 36.4 (C) / 97.6 (F) Weight: 158 lbs 09/14/2018 Blood Pressure 1: 140/72 Code: 8480-6 BMI: 26.1 Code: 85924-0 Heart Rate 1: 100 bpm Height: 5'4" Respiratory Rate: 20 bpm SpO2: 97% Tempera ture: 36.9 (C) / 98.4 (F) Weight: 152 lbs 09/06/2018 Blood Pressure 1: 156/82 Code: 8480-6 BMI: 26.3 Code: 89814-7 Heart Rate 1: 100 bpm Height: 5'4" Respiratory Rate: 28 bpm SpO2: 95% Tempera ture: 37.2 (C) / 98.9 (F) Weight: 153 lbs 08/16/2018 Blood Pressure 1: 130/78 Code: 8480-6 Heart Rate 1: 87 bpm Respiratory Rate: 24 bpm SpO2: 94% Temperature: 36.9 (C) / 98.4 (F) We ight: 147 lbs 8 oz 07/07/2018 Blood Pressure 1: 116/78 Code: 8480-6 BMI: 22.7 Code: 30654-1 Heart Rate 1: 88 bpm Height: 5'4" Respiratory Rate: 22 bpm SpO2: 98% Tempera ture: 36.5 (C) / 97.7 (F) Weight: 132 lbs 05/31/2018 Blood Pressure 1: 128/78 Code: 8480-6 BMI: 22.3 Code: 80021-4 Heart Rate 1: 92 bpm Height: 5'4" Respiratory Rate: 26 bpm SpO2: 94% Tempera ture: 36.7 (C) / 98.1 (F) Weight: 130 lbs 03/31/2018 Blood Pressure 1: 136/78 Code: 8480-6 BMI: 21.5 Code: 03889-8 Heart Rate 1: 76 bpm Height: 5'4" Respiratory Rate: 24 bpm SpO2: 95% Tempera ture: 36.8 (C) / 98.3 (F) Weight: 125 lbs 01/26/2018 Blood Pressure 1: 142/64 Code: 8480-6 BMI: 20.6 Code: 22001-9 Heart Rate 1: 90 bpm Height: 5'4" Respiratory Rate: 24 bpm SpO2: 92% Tempera ture: 36.3 (C) / 97.3 (F) Weight: 120 lbs 10/26/2017 Blood Pressure 1: 124/70 Code: 8480-6 BMI: 20.3 Code: 11091-6 Heart Rate 1: 76 bpm Height: 5'4" Respiratory Rate: 22 bpm SpO2: 94% Tempera ture: 36.7 (C) / 98.1 (F) Weight: 118 lbs 09/23/2017 Blood Pressure 1: 106/70 Code: 8480-6 BMI: 19.2 Code: 47988-2 Heart Rate 1: 76 bpm Height: 5'4" Respiratory Rate: 20 bpm SpO2: 94% Tempera ture: 36.8 (C) / 98.3 (F) Weight: 112 lbs 08/12/2017 Blood Pressure 1: 116/68 Code: 8480-6 BMI: 20.1 Code: 06565-8 Heart Rate 1: 80 bpm Height: 5'4" Respiratory Rate: 22 bpm SpO2: 95% Tempera ture: 36.8 (C) / 98.2 (F) Weight: 117 lbs 07/06/2017 Blood Pressure 1: 136/78 Code: 8480-6 BMI: 20.6 Code: 65498-2 Heart Rate 1: 76 bpm Height: 5'4" Respiratory Rate: 24 bpm SpO2: 96% Tempera ture: 36.8 (C) / 98.2 (F) Weight: 120 lbs 06/02/2017 Blood Pressure 1: 112/70 Code: 8480-6 Heart Rate 1: 92 bpm Height: 5'4" Respiratory Rate: 24 bpm SpO2: 95% Temperature: 37.0 (C) / 98.6 (F) Weight: 04/29/2017 Blood Pressure 1: 94/52 Code: 8480-6 BMI: 19.6 C ode: 45390-9 Heart Rate 1: 84 bpm Height: 5'4" [...] 92/58 Code: 8480-6 BMI: 19.2 C ode: 99614-8 Heart Rate 1: 84 bpm Height: 5'4" Respiratory Rate: 26 bpm SpO2: 95% Tempera ture: 36.7 (C) / 98.0 (F) Weight: 112 lbs 12/01/2016 Blood Pressure 1: 114/70 Code: 8480-6 BMI: 19.2 Code: 52858-1 Heart Rate 1: 96 bpm Height: 5'4" Respiratory Rate: 28 bpm SpO2: 93% Tempera ture: 38.3 (C) / 101.0 (F) Weight: 112 lbs 10/27/2016 Blood Pressure 1: 126/66 Code: 8480-6 BMI: 19.6 Code: 25939-8 Heart Rate 1: 92 bpm Height: 5'4" Respiratory Rate: 28 bpm SpO2: 90% Tempera ture: 36.8 (C) / 98.3 (F) Weight: 114 lbs 09/09/2016 Blood Pressure 1: 126/74 Code: 8480-6 Heart Rate 1: 104 bpm Height: 5'4" Respiratory Rate: 32 bpm SpO2: 88% Temperature: 37 .2 (C) / 99.0 (F) 08/26/2016 Blood Pressure 1: 134/82 Code: 8480-6 BMI: 22.0 Code: 18202-9 Heart Rate 1: 84 bpm Height: 5'4" Respiratory Rate: 24 bpm SpO2: 94% Tempera ture: 36.8 (C) / 98.3 (F) Weight: 128 lbs 05/21/2016 Blood Pressure 1: 142/80 Code: 8480-6 BMI: 21.6 Code: 16726-6 Heart Rate 1: 104 bpm Height: 5'4" Respiratory Rate: 22 bpm SpO2: 93% Tempera ture: 36.0 (C) / 96.8 (F) Weight: 126 lbs 03/25/2016 Blood Pressure 1: 126/62 Code: 8480-6 Heart Rate 1: 88 bpm Respiratory Rate: 20 bpm SpO2: 92% Temperature: 36.8 (C) / 98.3 (F) We ight: 130 lbs 01/23/2016 Blood Pressure 1: 146/82 Code: 8480-6 BMI: 24.1 Code: 88933-8 Heart Rate 1: 92 bpm Height: 5'3" Respiratory Rate: 22 bpm Temperature: 37 .1 (C) / 98.8 (F) Weight: 136 lbs 12/26/2015 Blood Pressure 1: 142/78 Code: 8480-6 BMI: 24.6 Code: 95636-3 Heart Rate 1: 78 bpm Height: 5'3" Respiratory Rate: 20 bpm Temperature: 36 .7 (C) / 98.1 (F) Weight: 139 lbs 12/03/2015 Blood Pressure 1: 126/60 Code: 8480-6 BMI: 24.6 Code: 55315-3 Heart Rate 1: 100 bpm Height: 5'3" Respiratory Rate: 28 bpm Temperature: 37 .6 (C) / 99.6 (F) Weight: 139 lbs 09/10/2015 Blood Pressure 1: 124/64 Code: 8480-6 BMI: 23.7 Code: 30557-1 Heart Rate 1: 88 bpm Height: 5'3" Respiratory Rate: 24 bpm SpO2: 95% Tempera ture: 36.4 (C) / 97.6 (F) Weight: 134 lbs 08/06/2015 Blood Pressure 1: 114/76 Code: 8480-6 BMI: 23.2 Code: 02797-5 Heart Rate 1: 88 bpm Height: 5'3" Respiratory Rate: 22 bpm Temperature: 36 .6 (C) / 97.9 (F) Weight: 131 lbs 07/18/2015 Blood Pressure 1: 144/78 Code: 8480-6 BMI: 23.7 Code: 14255-1 Heart Rate 1: 84 bpm Height: 5'3" Respiratory Rate: 20 bpm Temperature: 37 .2 (C) / 99.0 (F) Weight: 134 lbs 04/10/2015 Blood Pressure 1: 110/64 Code: 8480-6 Heart Rate 1: 80 bpm Height: Respiratory Rate: 20 bpm Temperature: 37.1 (C) / 98.8 (F) Weight: 03/05/2015 Blood Pressure 1: 136/80 Code: 8480-6 BMI: 23.9 Code: 31290-4 Heart Rate 1: 76 bpm Height: 5'3" Respiratory Rate: 24 bpm Temperature: 37 .0 (C) / 98.6 (F) Weight: 135 lbs 01/30/2015 Blood Pressure 1: 142/80 Code: 8480-6 BMI: 23.0 Code: 75864-6 Heart Rate 1: 96 bpm Height: 5'3" Respiratory Rate: 22 bpm Temperature: 36 .2 (C) / 97.2 (F) Weight: 130 lbs 01/02/2015 Blood Pressure 1: 124/70 Code: 8480-6 BMI: 23.4 Code: 90135-4 Heart Rate 1: 84 bpm Height: 5'3" Respiratory Rate: 24 bpm SpO2: 95% Tempera ture: 36.9 (C) / 98.5 (F) Weight: 132 lbs 10/03/2014 Blood Pressure 1: 106/68 Code: 8480-6 BMI: 22.5 Code: 77097-9 Heart Rate 1: 88 bpm Height: 5'3" Respiratory Rate: 24 bpm Temperature: 37 .0 (C) / 98.6 (F) Weight: 127 lbs 08/27/2014 Blood Pressure 1: 124/68 Code: 8480-6 BMI: 21.1 Code: 90508-3 Heart Rate 1: 88 bpm Height: 5'3" [...] 1: 120/70 Code: 8480-6 BMI: 19.2 Code: 15580-3 Heart Rate 1: 70 bpm Height: 5'4" Respiratory Rate: 20 bpm Temperature: 36 .9 (C) / 98.4 (F) Weight: 112 lbs 06/28/2013 Blood Pressure 1: 102/68 Code: 8480-6 BMI: 19.6 Code: 30611-5 Heart Rate 1: 76 bpm Height: 5'4" Respiratory Rate: 20 bpm Temperature: 36 .8 (C) / 98.2 (F) Weight: 114 lbs 05/31/2013 Blood Pressure 1: 106/70 Code: 8480-6 BMI: 18.9 Code: 24276-4 Heart Rate 1: 100 bpm Height: 5'4" Respiratory Rate: 20 bpm Temperature: 36 .4 (C) / 97.6 (F) Weight: 110 lbs 05/03/2013 Blood Pressure 1: 126/70 Code: 8480-6 BMI: 19.1 Code: 34111-3 Heart Rate 1: 88 bpm Height: 5'4" Respiratory Rate: 20 bpm Temperature: 37 .1 (C) / 98.8 (F) Weight: 111 lbs 04/25/2013 Blood Pressure 1: 114/68 Code: 8480-6 BMI: 19.4 Code: 52152-4 Heart Rate 1: 92 bpm Height: 5'4" Respiratory Rate: 24 bpm SpO2: 96% Tempera ture: 37.7 (C) / 99.8 (F) Weight: 113 lbs 03/08/2013 Blood Pressure 1: 94/68 Code: 8480-6 BMI: 21.3 C ode: 36469-3 Heart Rate 1: 88 bpm Height: 5'4" Respiratory Rate: 24 bpm Temperature: 37 .0 (C) / 98.6 (F) Weight: 124 lbs 02/07/2013 Blood Pressure 1: 106/64 Code: 8480-6 BMI: 21.8 Code: 30499-8 Heart Rate 1: 84 bpm Height: 5'4" Respiratory Rate: 22 bpm Temperature: 36 .8 (C) / 98.2 (F) Weight: 127 lbs 01/10/2013 Blood Pressure 1: 122/68 Code: 8480-6 BMI: 21.6 Code: 12232-1 Heart Rate 1: 94 bpm Height: 5'4" SpO2: 94% Temperature: 36.7 (C) / 98.1 (F) Weight: 126 lbs 09/28/2012 Blood Pressure 1: 124/78 Code: 8480-6 BMI: 24.9 Code: 95341-9 Heart Rate 1: 92 bpm Height: 5'4" Respiratory Rate: 20 bpm Temperature: 36 .7 (C) / 98.1 (F) Weight: 145 lbs 06/28/2012 Blood Pressure 1: 134/80 Code: 8480-6 BMI: 24.9 Code: 37944-2 Heart Rate 1: 76 bpm Height: 5'4" Respiratory Rate: 20 bpm Temperature: 36 .8 (C) / 98.2 (F) Weight: 145 lbs 05/03/2012 Blood Pressure 1: 108/62 Code: 8480-6 BMI: 25.6 Code: 83191-1 Heart Rate 1: 88 bpm Height: 5'4" Temperature: 36.2 (C) / 97.2 (F) Weight: 149 lbs 03/01/2012 Blood Pressure 1: 124/66 Code: 8480-6 BMI: 25.1 Code: 45110-9 Heart Rate 1: 76 bpm Height: 5'4" Respiratory Rate: 20 bpm Temperature: 36 .6 (C) / 97.9 (F) Weight: 146 lbs 01/26/2012 Blood Pressure 1: 118/82 Code: 8480-6 BMI: 25.1 Code: 33923-3 Heart Rate 1: 74 bpm Height: 5'4" Temperature: 36.8 (C) / 98.2 (F) Weight: 146 lbs 11/03/2011 Blood Pressure 1: 126/80 Code: 8480-6 BMI: 27.3 Code: 21849-8 Heart Rate 1: 72 bpm Height: 5'4" [...] proza Encounters Encounter Performer Location Codes Date ([id number]) OFFICE/OUTPATIENT VISIT EST Diagnosis: Chronic pain syndrome[ICD10: G89.4] Diagnosis: Localized edema[ICD10: R60.0] Diagnosis: Chronic obstructive pulmonary disease, unspecified[ICD10: J44.9] Diagnosis: Other fatigue[ICD10: R53.83] Diagnosis: Muscle weakness (generalized)[ICD10: M62.81] Diagnosis: Spinal stenosis, lumbar region with neurogenic claudication[ICD10: M48.062] Vika Bello [employer] CPT-4: 98077 11/29/2019 ([id number]) OFFICE/OUTPATIENT VISIT EST Diagnosis: Chronic pain syndrome[ICD10: G89.4] Diagnosis: Lumbar degenerative disc disease[ICD10: M51.36] Diagnosis: Muscle spasm[ICD10: M62.838] Diagnosis: Spinal stenosis, lumbar region with neurogenic claudication[ICD10: M48.062] Diagnosis: Spondylosis without myelopathy or radiculopathy, 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] Vika RENTERIA [employer] CPT-4: 24537 10/30/2019 ([id number]) OFFICE/OUTPATIENT VISIT EST Diagnosis: Chronic pain syndrome[ICD10: G89.4] Vika [employer] CPT-4: 25911 10/25/2019 ([id number]) OFFICE/OUTPATIENT VISIT EST Diagnosis: Epigastric pain[ICD10: R10.13] Diagnosis: Nausea[ICD10: R11.0] Diagnosis: Chronic obstructive pulmonary disease, unspecified[ICD10: J44.9] Vika Bello [employer] CPT-4: 09337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
--- OUTSIDE RECORDS SUMMARY | 2020-04-24 23:03 | XMS REPORT | CCD ---
Author Author Yana Renteria D.O. 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 Name Role Phone Vika Renteria D.O., PP Unavailable CCM Unavailable Summary Purpose Interface Exchange Insurance Providers Payer name Policy type / Coverage type Covered green party ID Effective Begin Date Effective End Date [employer] [facility] Medicaid [id number] 2018 U nknown Family History Family History data not found Social History Social History Element Codes Description Effective Dates Marital status Unknown 06/28/[address]: [id number] Currently smokes tobacco 05/2013 Allergies, Adverse Reactions, [...] Start Date Stop Date Status Fill Instructions metformin 500 mg tablet RxNorm: 896697 1 Tablet(s) Oral QD 01/31/20 20 04/29/2020 Active gabapentin 300 mg capsule RxNorm: 652353 TAKE ONE CAPSULE BY [facility] TWICE A DAY 01/16/2020 No Stop Date Active potassium chloride ER 20 mEq tablet,extended release RxNorm: 145198 TAKE ONE TABLET BY MOUTH DAILY 01/08/2020 07/05/2020 Active ProAir HFA 90 mcg/actuation aerosol inhaler RxNorm: 187561 INHALE ONE PUFF BY MOUTH EVERY 4 HOURS FOR WHEEZING OR FOR SHORTNESS OF BREATH 01/04/2020 No Stop Date Active metformin 500 mg tablet RxNorm: 089674 1 Tablet(s) Oral QD 01/04/20 20 01/30/2020 Inactive MS Contin 200 mg tablet,extended release RxNorm: 862508 1 Tablet(s) Oral two times a day 01/02/2020 01/31/2020 Inactive Pulmicort 1 mg/2 mL suspension for nebulization RxNorm: 6168 19 USE ONE VIAL VIA NEBULIZER BY MOUTH TWICE A DAY 12/21/2019 No Stop Date Active furosemide 40 mg tablet RxNorm: 643687 TAKE ONE TABLET BY MOUTH EVERY MORNING NEEDED 12/20/2019 No Stop Date Active levothyroxine 25 mcg tablet RxNorm: 648981 TAKE ONE TAB LET BY MOUTH EVERY MORNING 12/20/2019 No Stop Date Active MS Contin 200 mg tablet,extended release RxNorm: 698293 1 Tablet(s) Oral two times a day 12/05/2019 01/01/2020 Inactive Medrol (Aníbal) 4 mg tablets in a dose pack RxNorm: 364909 6 Tablet(s) Oral QD --then as directed 11/30/2019 12/05/2019 Inactive MS Contin 200 mg tablet,extended release RxNorm: 787469 1 Tablet(s) Oral two times a day 11/29/2019 12/04/2019 Inactive cyclobenzaprine 10 mg tablet RxNorm: 618095 TAKE ONE TA BLET BY MOUTH THREE TIMES A DAY NEEDED 11/21/2019 No Stop Date Active MS Contin 200 mg tablet,extended release RxNorm: 562578 1 Tablet(s) Oral two times a day replaces 100mg dose 11/03/2019 11/02/2019 Inactive MS Contin 200 mg tablet,extended release RxNorm: 502880 1 Tablet(s) Oral two times a day replaces 100mg dose 11/03/2019 11/29/2019 Inactive ferrous sulfate 325 mg (65 mg iron) tablet RxNorm: 151932 1 Tab let(s) Oral QD 10/30/2019 No Stop Date Active MS Contin 100 mg tablet,extended release RxNorm: 949812 1 Table t(s) Oral QD 10/30/2019 10/29/2019 Inactive MS Contin 100 mg tablet,extended release RxNorm: 688503 1 Table t(s) Oral QD 10/30/2019 11/02/2019 Inactive Relistor 150 mg tablet RxNorm: 7302327 TAKE THREE TABLETS BY [facility] DAILY 10/25/2019 No Stop Date Active pantoprazole 40 mg tablet,delayed release RxNorm: 754299 1 Tabl et(s) Oral QD 10/25/2019 No Stop Date Active Minipress 2 mg capsule RxNorm: 806767 1 Capsule(s) Oral QAM and 3 at bedtime 10/25/2019 No Stop Date Active Lancets, Super Thin RxNorm: 1 Unit Dose Miscellaneous QD 9 11/27/2020 Active Cymbalta 60 mg capsule,delayed release RxNorm: 338690 1 Capsule (s) Oral QAM 10/25/2019 No Stop Date Active Cymbalta 30 mg capsule,delayed release RxNorm: 514617 1 Capsule (s) Oral QAM 10/25/2019 No Stop Date Active oxycodone 15 mg tablet RxNorm: 1908254 1 Tablet(s) Oral four times a day as needed for pain 10/25/2019 11/28/2019 Inactive metformin 500 mg tablet RxNorm: 461301 1 Tablet(s) Oral QD 10/25/20 19 01/03/2020 Inactive levothyroxine 25 mcg tablet RxNorm: 145483 1 Tablet(s) Oral QAM 02/201912/19/2019 Inactive levothyroxine 25 mcg tablet RxNorm: 304423 1 Tablet(s) Oral QAM 02/201910/24/2019 Inactive MS Contin 100 mg tablet,extended release RxNorm: 613961 1 Tablet(s) Oral two times a day replaces fentanyl 10/25/2019 10/25/2019 Inactive Premarin 0.45 mg tablet RxNorm: 270730 TAKE ONE TABLET BY MOUTH DAILY 10/24/2019 No Stop Date Active Duragesic 100 mcg/hr transdermal patch RxNorm: 916478 2 Application TD Q48H for pain 10/18/2019 10/24/2019 Inactive gabapentin 300 mg capsule RxNorm: 620301 TAKE ONE CAPSULE BY MO UTH TWICE A DAY 10/16/2019 01/15/2020 Inactive cyclobenzaprine 10 mg tablet RxNorm: 167245 TAKE ONE TA BLET BY MOUTH THREE TIMES A DAY NEEDED 09/27/2019 11/20/2019 Inactive Relistor 150 mg tablet RxNorm: 7472215 TAKE THREE TABLETS BY [facility] DAILY 09/25/2019 10/24/2019 Inactive ProAir HFA 90 mcg/actuation aerosol inhaler RxNorm: 103185 INHALE ONE PUFF BY MOUTH EVERY 4 HOURS FOR WHEEZING OR FOR SHORTNESS OF BREATH 09/25/2019 01/03/2020 Inactive furosemide 40 mg tablet RxNorm: 658114 1 Tablet(s) Oral QAM as needed 09/25/2019 09/25/2019 Inactive oxycodone 15 mg tablet RxNorm: 2450598 1 Tablet(s) PO QID as nee ded for pain 09/21/2019 10/24/2019 Inactive Duragesic 100 mcg/hr transdermal patch RxNorm: 227998 2 Application TD Q48H for pain 09/19/2019 10/17/2019 Inactive Daliresp 500 mcg tablet RxNorm: 8314275 1 Tablet(s) Oral QD 019 03/08/2020 Active Relistor 150 mg tablet RxNorm: 7112065 TAKE THREE TABLETS BY [facility] DAILY 07/25/2019 07/30/2019 Inactive cyclobenzaprine 10 mg tablet RxNorm: 407241 TAKE ONE TA BLET BY MOUTH THREE TIMES A DAY NEEDED 07/25/2019 09/22/2019 Inactive potassium chloride ER 20 mEq tablet,extended release RxNorm: 321430 TAKE ONE TABLET BY MOUTH DAILY 07/25/2019 01/07/2020 Inactive fluoxetine 40 mg capsule RxNorm: 011271 TAKE ONE CAPSULE BY [facility] EVERY MORNING 07/11/2019 10/24/2019 Inactive Medrol (Aníbal) 4 mg tablets in a dose pack RxNorm: 089526 6 Tablet(s) PO QD --then as directed 07/10/2019 07/15/2019 Inactive omeprazole 40 mg capsule,delayed release RxNorm: 054215 1 Capsule(s) PO QD for stomach TAKE ONE CAPSULE BY MOUTH DAILY 07/10/2019 10/24/2019 Inactive Augmentin 875 mg-125 mg tablet RxNorm: 876258 1 Tablet(s) PO BID 07/16/2019 Inactive Trulicity 0.75 mg/0.5 mL subcutaneous pen injector RxNorm: 1 249355 0.75 Milliliter(s) SQ weekly 07/05/2019 10/24/2019 Inactive Compazine 10 mg tablet RxNorm: 927172 TAKE ONE TABLET B Y MOUTH FOUR TIMES A DAY NEEDED FOR NAUSEA 06/20/2019 07/19/2019 Inactive ProAir HFA 90 mcg/actuation aerosol inhaler RxNorm: 689211 INHALE ONE PUFF BY MOUTH EVERY 4 HOURS FOR WHEEZING OR FOR SHORTNESS OF BREATH 06/20/2019 06/23/2019 Inactive Daliresp 500 mcg tablet RxNorm: 5265482 TAKE ONE TABLET BY MOUTH DAILY 06/12/2019 09/10/2019 Inactive qzypypuh-vzofiumea-hedosyini 3.5 mg/mL-10,000 unit/mL- 1 % ear solution RxNorm: 844722 4 Drop(s) otic (ear) TID to left ear 06/05/2019 10/24/2019 Inac tive furosemide 40 mg tablet RxNorm: 545525 TAKE ONE TABLET BY MOUTH EVERY MORNING 05/26/2019 07/09/2019 Inactive Duragesic 100 mcg/hr transdermal patch RxNorm: 916673 2 Application TD Q48H for pain 05/16/2019 06/14/2019 Inactive oxycodone 15 mg tablet RxNorm: 7821285 1 Tablet(s) PO QID as nee ded for pain 05/10/2019 09/20/2019 Inactive doxycycline hyclate 100 mg capsule RxNorm: 1706226 1 Capsule(s) PO BID 05/03/2019 05/12/2019 Inactive prednisone 20 mg tablet RxNorm: 951962 1 Tablet(s) PO T ID for 3 days then 1 po BID for 3 days then one daily for 3 days 05/03/2019 07/11/2019 Inactiv e Ozempic 0.25 mg or 0.5 mg (2 mg/1.5 mL) subcutaneous p en injector RxNorm: 8506765 0.5 Milligram(s) SQ QW 05/03/2019 07/09/2019 Inactive fluconazole 100 mg tablet RxNorm: 598287 1 Tablet(s) PO QD 05/03/2005/07/2019 Inactive Premarin 0.45 mg tablet RxNorm: 365500 TAKE ONE TABLET BY MOUTH DAILY 05/03/2019 10/23/2019 Inactive potassium chloride ER 20 mEq tablet,extended release RxNorm: 798053 1 Tablet(s) PO QD 04/27/2019 07/25/2019 Inactive potassium chloride ER 20 mEq tablet,extended release RxNorm: 999228 1 Tablet(s) PO QD 04/25/2019 04/26/2019 Inactive Compazine 10 mg tablet RxNorm: 853788 1 Tablet(s) PO QID as nee ded for nausea 04/25/2019 05/04/2019 Inactive ProAir HFA 90 mcg/actuation aerosol inhaler RxNorm: 480115 INHALE ONE PUFF BY MOUTH EVERY 4 HOURS FOR WHEEZING OR FOR SHORTNESS OF BREATH 04/12/2019 06/10/2019 Inactive Medrol (Aníbal) 4 mg tablets in a dose pack RxNorm: 957047 6 Tablet(s) PO QD --then as directed 04/11/2019 04/16/2019 Inactive Symbicort 160 mcg-4.5 mcg/actuation HFA aerosol inhaler RxNo rm: 3206187 2 Puff(s) INH BID 04/10/2019 10/06/2019 Inactive levothyroxine 50 mcg tablet RxNorm: 243414 1 Tablet(s) PO QD 201810/24/2019 Inactive gabapentin 300 mg capsule RxNorm: 681917 1 Capsule(s) PO BID 201810/02/2019 Inactive Symbicort 160 mcg-4.5 mcg/actuation HFA aerosol inhaler RxNo rm: 6803860 2 Puff(s) INH BID 04/06/2019 04/09/2019 Inactive oxycodone 15 mg tablet RxNorm: 1998293 1 Tablet(s) PO QID as nee ded for pain 04/05/2019 05/09/2019 Inactive levothyroxine 50 mcg tablet RxNorm: 111605 1 Tablet(s) PO QD 201804/09/2019 Inactive furosemide 40 mg tablet RxNorm: 723429 TAKE ONE TABLET BY MOUTH EVERY MORNING 03/21/2019 04/19/2019 Inactive levothyroxine 50 mcg tablet RxNorm: 702837 TAKE ONE TABLET BY M OUTH DAILY 03/21/2019 03/27/2019 Inactive Duragesic 100 mcg/hr transdermal patch RxNorm: 356081 2 Application TD Q48H for pain 03/13/2019 04/11/2019 Inactive oxycodone 15 mg tablet RxNorm: 6309783 1 Tablet(s) PO QID as nee ded for pain 03/06/2019 04/04/2019 Inactive Relistor 150 mg tablet RxNorm: 7042400 3 Tablet(s) PO QD 02/28/2019 0 05/28/2019 Inactive cyclobenzaprine 10 mg tablet RxNorm: 147847 1 Tablet(s) PO TID as needed 02/28/2019 05/28/2019 Inactive phentermine 37.5 mg tablet RxNorm: 731755 1 Tablet(s) PO QAM 201803/15/2019 Inactive Duragesic 100 mcg/hr transdermal patch RxNorm: 136771 2 Application TD Q48H for pain 02/09/2019 03/10/2019 Inactive Daliresp 500 mcg tablet RxNorm: 1353229 TAKE ONE TABLET BY MOUTH DAILY 01/31/2019 05/30/2019 Inactive Premarin 0.45 mg tablet RxNorm: 757289 1 Tablet(s) PO QD 01/31/2019 0 04/30/2019 Inactive fluoxetine 40 mg capsule RxNorm: 600485 Capsule(s) TAKE ONE CAPSULE BY MOUTH EVERY MORNING 01/31/2019 04/30/2019 Inactive levothyroxine 50 mcg tablet RxNorm: 002584 1 Tablet(s) PO QD 201804/10/2019 Inactive follow up in 3 weeks levothyroxine 50 mcg tablet RxNorm: 065604 1 Tablet(s) PO QD 201801/25/2019 Inactive follow up in 3 weeks potassium chloride ER 20 mEq tablet,extended release RxNorm: 912310 2 Tablet(s) PO BID 01/23/2019 01/08/2020 Inactive Synthroid 50 mcg tablet RxNorm: 800532 TAKE ONE TABLET BY MOUTH DAILY 01/16/2019 10/24/2019 Inactive potassium chloride ER 20 mEq tablet,extended release RxNorm: 393281 2 Tablet(s) PO BID 01/04/2019 01/22/2019 Inactive ProAir HFA 90 mcg/actuation aerosol inhaler RxNorm: 566047 INHALE ONE PUFF BY MOUTH EVERY 4 HOURS FOR WHEEZING OR SHORTNESS OF BREATH 01/04/201902/20 Inactive Request already responded to by other me ans (e.g. phone or fax) ProAir HFA 90 mcg/actuation aerosol inhaler RxNorm: 3042357 INHALE ONE PUFF BY MOUTH EVERY 4 HOURS FOR WHEEZING OR SHORTNESS OF BREATH 01/02/201912/23 Inactive gabapentin 300 mg capsule RxNorm: 544833 TAKE ONE CAPSULE BY MO UT TWICE A DAY 12/30/2018 04/06/2019 Inactive furosemide 40 mg tablet RxNorm: 670399 1 Tablet(s) PO QAM 12/26/2018 02/23/2019 Inactive Compazine 10 mg tablet RxNorm: 694611 1 Tablet(s) PO QID as nee ded for nausea 12/07/2018 12/16/2018 Inactive metformin ER 500 mg tablet,extended release 24 hr RxNorm: 86 0975 TAKE ONE TABLET BY MOUTH DAILY 12/05/2018 01/31/2020 Inactive metolazone 2.5 mg tablet RxNorm: 291719 TAKE ONE TABLET BY MOUT H EVERY MORNING 12/05/2018 01/03/2019 Inactive Synthroid 50 mcg tablet RxNorm: 089236 1 Tablet(s) PO QD 11/25/2018 0 01/03/2019 Inactive DC any other synthroid strengths. Should be 50mcg only cyclobenzaprine 10 mg tablet RxNorm: 407857 TAKE ONE TA BLET BY MOUTH THREE TIMES A DAY NEEDED 11/09/2018 02/06/2019 Inactive metolazone 2.5 mg tablet RxNorm: 839439 1 Tablet(s) PO QAM repl aces 5mg dose 11/02/2018 12/01/2018 Inactive potassium chloride ER 20 mEq tablet,extended release RxNorm: 712360 2 Tablet(s) PO QD 2018 01/02/2019 Inactive Compazine 10 mg tablet RxNorm: 792358 1 Tablet(s) PO QID as nee ded for nausea 10/18/2018 12/07/2018 Inactive furosemide 40 mg tablet RxNorm: 052636 1 Tablet(s) PO QAM 10/12/2018 12/10/2018 Inactive ondansetron 8 mg disintegrating tablet RxNorm: 927449 1 Tablet(s) PO Q6H as needed 10/11/2018 10/17/2018 Inactive scopolamine 1 mg over 3 days transdermal patch RxNorm: 53354 2 1 Application TD behind ear. Take off after three days 10/11/2018 01/02/2019 Inactive furosemide 40 mg tablet RxNorm: 574675 1 Tablet(s) PO QAM 10/10/2018 12/26/2018 Inactive metolazone 5 mg tablet RxNorm: 714860 1 Tablet(s) PO QAM 10/06/2018 1 01/03/2018 Inactive metolazone 5 mg tablet RxNorm: 367800 1 Tablet(s) PO QAM 10/06/2018 1 12/05/2017 Inactive Xtampza ER 36 mg capsule sprinkle RxNorm: 2260240 1 Capsule(s) P O BID 10/05/2018 01/02/2019 Inactive Xtampza ER 36 mg capsule sprinkle RxNorm: 7367815 1 Capsule(s) P O BID 10/05/2018 02/12/2019 Inactive omeprazole 40 mg capsule,delayed release RxNorm: 191812 TAKE ONE CAPSULE BY MOUTH DAILY 10/03/2018 12/31/2018 Inactive Duragesic 100 mcg/hr transdermal patch RxNorm: 961140 2 Application TD Q48H for pain 09/30/2018 10/29/2018 Inactive Synthroid 50 mcg tablet RxNorm: 261481 1 Tablet(s) PO QD 09/29/2018 0 11/25/2018 Inactive DC any other synthroid strengths. Should be 50mcg only Synthroid 50 mcg tablet RxNorm: 647354 1 Tablet(s) PO QD 09/29/2018 1 11/28/2017 Inactive furosemide 40 mg tablet RxNorm: 395938 2 Tablet(s) PO Q AM for 1 week then every other day for 2 weeks 09/27/2018 10/12/2018 Inactive fluoxetine 40 mg capsule RxNorm: 695378 2 Capsule(s) PO QD 09/27/20 18 10/17/2018 Inactive potassium chloride ER 20 mEq tablet,extended release RxNorm: 899736 2 Tablet(s) PO QD for 1 week then every other day for 2 weeks 09/27/2018 2018 Inactive ProAir HFA 90 mcg/actuation aerosol inhaler RxNorm: 9812935 INHALE ONE PUFF BY MOUTH EVERY 4 HOURS FOR WHEEZING OR SHORTNESS OF BREATH 09/26/201811/23 Inactive Synthroid 75 mcg tablet RxNorm: 384572 1 Tablet(s) PO QD 09/09/2018 1 Inactive Synthroid 75 mcg tablet RxNorm: 753058 1 Tablet(s) PO QD 09/09/2018 1 11/28/2017 Inactive furosemide 40 mg tablet RxNorm: 538009 1 Tablet(s) PO QD 09/06/2018 1 Inactive potassium chloride ER 20 mEq tablet,extended release RxNorm: 312555 1 Tablet(s) PO QD 09/06/2018 09/19/2018 Inactive Duragesic 100 mcg/hr transdermal patch RxNorm: 644793 2 Application TD Q48H for pain 08/30/2018 09/28/2018 Inactive gabapentin 300 mg capsule RxNorm: 634687 TAKE ONE CAPSULE BY [facility] TWICE A DAY 08/23/2018 12/20/2018 Inactive Daliresp 500 mcg tablet RxNorm: 4749389 TAKE ONE TABLET BY MOUTH DAILY 08/23/2018 01/19/2019 Inactive Pulmicort 1 mg/2 mL suspension for nebulization RxNorm: 6168 19 USE ONE VIAL VIA NEBULIZER BY MOUTH TWICE A DAY 08/23/2018 07/11/2019 Inactive Synthroid 88 mcg tablet RxNorm: 814590 1 Tablet(s) PO QD 08/19/2018 1 Inactive Medrol (Aníbal) 4 mg tablets in a dose pack RxNorm: 577615 Tablet(s) PO take as directed 08/16/2018 09/05/2018 Inactive Relistor 150 mg tablet RxNorm: 1975610 3 Tablet(s) PO QD 08/16/2018 1 Inactive Zithromax Z-Aníbal 250 mg tablet RxNorm: 262942 Tablet(s) PO take as directed 08/16/2018 09/05/2018 Inactive cyclobenzaprine 10 mg tablet RxNorm: 643713 1 Tablet(s) PO TID as needed 08/16/2018 11/08/2018 Inactive Synthroid 88 mcg tablet RxNorm: 778077 1 Tablet(s) PO Q D NEEDS UPDATED LABS BEFORE FURTHER REFILLS 08/08/2018 08/19/2018 Inactive Premarin 0.45 mg tablet RxNorm: 840118 1 Tablet(s) PO QD 08/03/2018 0 01/31/2019 Inactive fluoxetine 20 mg capsule RxNorm: 879037 TAKE ONE CAPSULE BY [facility] TH DAILY 08/03/2018 09/26/2018 Inactive Xtampza ER 36 mg capsule sprinkle RxNorm: 3601168 1 Capsule(s) P O BID 08/03/2018 09/01/2018 Inactive metformin ER 500 mg tablet,extended release 24 hr RxNorm: 86 0975 1 Tablet(s) PO QD 08/03/2018 10/31/2018 Inactive Symbicort 160 mcg-4.5 mcg/actuation HFA aerosol inhaler RxNo rm: 5539119 2 Puff(s) INH BID 08/03/2018 01/29/2019 Inactive Duragesic 100 mcg/hr transdermal patch RxNorm: 363107 2 Application TD Q48H for pain 07/29/2018 08/27/2018 Inactive ProAir HFA 90 mcg/actuation aerosol inhaler RxNorm: 479666 INHALE TWO PUFFS BY MOUTH EVERY 4 HOURS FOR WHEEZING OR SHORTNESS OF BREATH 07/27/201802/2018 Inactive Relistor 150 mg tablet RxNorm: 8850753 3 Tablet(s) PO QD 07/20/2018 0 08/15/2018 Inactive metformin ER 500 mg tablet,extended release 24 hr RxNorm: 86 0975 TAKE ONE TABLET BY MOUTH DAILY 07/08/2018 08/02/2018 Inactive fluoxetine 40 mg capsule RxNorm: 316495 TAKE ONE CAPSULE BY [facility] TH EVERY MORNING 07/08/2018 10/05/2018 Inactive Xtampza ER 18 mg capsule sprinkle RxNorm: 1231487 1 Capsule(s) P O BID 07/08/2018 08/02/2018 Inactive Relistor 150 mg tablet RxNorm: 7099366 3 Tablet(s) PO QD 07/08/2018 0 07/12/2018 Inactive Synthroid 88 mcg tablet RxNorm: 636335 1 Tablet(s) PO Q D NEEDS UPDATED LABS BEFORE FURTHER REFILLS 06/23/2018 07/07/2018 Inactive fluoxetine 40 mg capsule RxNorm: 540022 TAKE ONE CAPSULE BY [facility]ENOIT TH EVERY MORNING 06/15/2018 09/26/2018 Inactive orphenadrine citrate ER 100 mg tablet,extended release RxNor m: 559195 TAKE ONE TABLET BY MOUTH TWICE A DAY FOR MUSCLE SPASM 06/15/2018 08/15/2018 Renu ctive Duragesic 100 mcg/hr transdermal patch RxNorm: 513588 2 Application TD Q48H for pain 05/30/2018 06/28/2018 Inactive ProAir HFA 90 mcg/actuation aerosol inhaler RxNorm: 826342 INHALE TWO PUFFS BY MOUTH EVERY 4 HOURS FOR WHEEZING OR SHORTNESS OF BREATH 05/19/2018/0 03/2018 Inactive Chantix Continuing Month Box 1 mg tablet RxNorm: 228191 TAKE ONE TABLET BY MOUTH TWICE A DAY 05/19/2018 08/15/2018 Inactive oxycodone 10 mg tablet RxNorm: 8305211 1-2 Tablet(s) PO QID as n eeded for pain 05/19/2018 07/07/2018 Inactive gabapentin 300 mg capsule RxNorm: 372539 TAKE ONE CAPSULE BY MO UTH TWICE A DAY 05/18/2018 07/16/2018 Inactive ProAir HFA 90 mcg/actuation aerosol inhaler RxNorm: 571868 INHALE TWO PUFFS BY MOUTH EVERY 4 HOURS FOR WHEEZING OR SHORTNESS OF BREATH 05/04/20182 05/2018 Inactive Augmentin 500 mg-125 mg tablet RxNorm: 206755 1 Tablet(s) PO BID 05/03/2018 Inactive oxycodone 10 mg tablet RxNorm: 6305410 1-2 Tablet(s) PO QID as n eeded for pain 04/21/2018 05/18/2018 Inactive Synthroid 88 mcg tablet RxNorm: 224364 1 Tablet(s) PO QD 04/15/2018 0 08/08/2018 Inactive Symbicort 160 mcg-4.5 mcg/actuation HFA aerosol inhaler RxNo rm: 7704465 2 Puff(s) INH BID 04/15/2018 04/10/2019 Inactive Premarin 0.45 mg tablet RxNorm: 219506 1 Tablet(s) PO QD 04/15/2018 0 08/03/2018 Inactive ProAir HFA 90 mcg/actuation aerosol inhaler RxNorm: 412075 2 Puff(s) INH Q4H prn for wheezing or shortness of breath 04/15/2018 05/03/2018 Inactive metformin ER 500 mg tablet,extended release 24 hr RxNorm: 86 0975 1 Tablet(s) PO QD 04/11/2018 07/07/2018 Inactive omeprazole 40 mg capsule,delayed release RxNorm: 351507 TAKE ONE CAPSULE BY MOUTH DAILY 04/10/2018 06/08/2018 Inactive Synthroid 88 mcg tablet RxNorm: 760901 1 Tablet(s) PO QD 04/04/2018 0 04/14/2018 Inactive Synthroid 88 mcg tablet RxNorm: 646785 1 Tablet(s) PO QD 04/04/2018 0 04/03/2018 Inactive orphenadrine citrate ER 100 mg tablet,extended release RxNor m: 577038 1 Tablet(s) PO BID for muscle spasm 04/04/2018 05/03/2018 Inactive metformin ER 500 mg tablet,extended release 24 hr RxNorm: 86 0975 1 Tablet(s) PO QD NEEDS UPDATED LABS 03/31/2018 04/11/2018 Inactive doxycycline hyclate 100 mg capsule RxNorm: 6893012 1 Capsule(s) PO BID 03/31/2018 04/09/2018 Inactive prednisone 20 mg tablet RxNorm: 581130 3 Tablet(s) PO T ID for 3 days then 1 po BID for 3 days then one daily for 3 days 03/31/2018 07/06/2018 Inactiv e Chantix Continuing Month Box 1 mg tablet RxNorm: 560329 TAKE ONE TABLET BY MOUTH TWICE A DAY 03/25/2018 03/30/2018 Inactive oxycodone 10 mg tablet RxNorm: 2373552 1-2 Tablet(s) PO QID as n eeded for pain 03/21/2018 04/20/2018 Inactive Daliresp 500 mcg tablet RxNorm: 0350148 1 Tablet(s) PO QD 03/15/2018 08/22/2018 Inactive metformin ER 500 mg tablet,extended release 24 hr RxNorm: 86 0975 1 Tablet(s) PO QD NEEDS UPDATED LABS 03/14/2018 03/31/2018 Inactive nystatin 100,000 unit/mL oral suspension RxNorm: 425864 5 Chio liter(s) PO QID 03/02/2018 03/15/2018 Inactive nystatin 100,000 unit/mL oral suspension RxNorm: 652916 5 Chio liter(s) PO QID 03/02/2018 03/01/2018 Inactive oxycodone 10 mg tablet RxNorm: 9330238 1-2 Tablet(s) PO QID as n eeded for pain 02/16/2018 03/20/2018 Inactive fluoxetine 20 mg capsule RxNorm: 560362 1 Capsule(s) PO QD 02/15/20 18 08/02/2018 Inactive metformin ER 500 mg tablet,extended release 24 hr RxNorm: 86 0975 1 Tablet(s) PO QD Needs updated labs 02/14/2018 03/14/2018 Inactive cefdinir 300 mg capsule RxNorm: 920301 1 Capsule(s) PO BID 01/27/20 18 02/04/2018 Inactive orphenadrine citrate ER 100 mg tablet,extended release RxNor m: 248712 1 Tablet(s) PO BID for muscle spasm 01/26/2018 04/04/2018 Inactive gabapentin 300 mg capsule RxNorm: 132895 1 Capsule(s) PO BID 201704/17/2018 Inactive oxycodone 10 mg tablet RxNorm: 6609127 1-2 Tablet(s) PO QID as n eeded for pain 01/17/2018 02/15/2018 Inactive Duragesic 100 mcg/hr transdermal patch RxNorm: 011936 2 Application TD Q48H for pain 01/17/2018 02/15/2018 Inactive gabapentin 300 mg capsule RxNorm: 182365 TAKE ONE CAPSULE BY MO UTH TWICE A DAY 12/20/2017 01/18/2018 Inactive fluoxetine 40 mg capsule RxNorm: 168678 TAKE ONE CAPSULE BY BENOIT TH EVERY MORNING 12/15/2017 03/14/2018 Inactive OneTouch Ultra Test strips RxNorm: TEST DAILY 11/04/2017 02/01/2018 Inactive gabapentin 300 mg capsule RxNorm: 681555 1 Capsule(s) P O TID replaces BID dosing 10/26/2017 02/22/2018 Inactive oxycodone 10 mg tablet RxNorm: 4988250 1-2 Tablet(s) PO QID as n eeded for pain 10/18/2017 01/16/2018 Inactive Duragesic 100 mcg/hr transdermal patch RxNorm: 137179 2 Application TD Q48H for pain 10/18/2017 11/16/2017 Inactive gabapentin 300 mg capsule RxNorm: 780885 1 Capsule(s) PO BID 201610/25/2017 Inactive Abilify 5 mg tablet RxNorm: 899125 1 Tablet(s) PO QAM 09/23/201702/2017 Inactive gabapentin 300 mg capsule RxNorm: 426557 1 Capsule(s) PO BID 201610/17/2017 Inactive oxycodone 10 mg tablet RxNorm: 9045808 1-2 Tablet(s) PO QID as n eeded for pain 09/15/2017 10/17/2017 Inactive Duragesic 100 mcg/hr transdermal patch RxNorm: 046611 2 Application TD Q48H for pain 09/15/2017 10/14/2017 Inactive Duragesic 100 mcg/hr transdermal patch RxNorm: 646587 2 Application TD Q48H for pain 09/15/2017 10/24/2019 Inactive oxycodone 10 mg tablet RxNorm: 4501895 1-2 Tablet(s) PO QID as n eeded for pain 09/15/2017 08/15/2018 Inactive Daliresp 500 mcg tablet RxNorm: 4241639 1 Tablet(s) PO QD 09/06/2017 03/15/2018 Inactive Ventolin HFA 90 mcg/actuation aerosol inhaler RxNorm: 067286 2 Puff(s) INH Q4H as needed 09/02/2017 05/19/2018 Inactive oxycodone 10 mg tablet RxNorm: 7014597 1-2 Tablet(s) PO QID as n eeded for pain 08/17/2017 09/14/2017 Inactive Duragesic 100 mcg/hr transdermal patch RxNorm: 653050 2 Application TD Q48H for pain 08/17/2017 09/14/2017 Inactive fluoxetine 40 mg capsule RxNorm: 424943 Capsule(s) TAKE ONE CAPSULE BY MOUTH EVERY MORNING 08/17/2017 12/14/2017 Inactive Pulmicort 1 mg/2 mL suspension for nebulization RxNorm: 6168 19 1 Unit Dose INH BID Dx: COPD (J44.9) 08/16/2017 08/22/2018 Inactive gabapentin 300 mg capsule RxNorm: 249364 1 Capsule(s) PO QHS 201610/18/2017 Inactive fluoxetine 20 mg capsule RxNorm: 349651 1 Capsule(s) PO QD 08/12/20 17 02/14/2018 Inactive Abilify 2 mg tablet RxNorm: 162792 1 Tablet(s) PO QD TA KE ONE TABLET BY MOUTH DAILY 08/12/2017 10/25/2017 Inactive metformin ER 500 mg tablet,extended release 24 hr RxNorm: 86 0975 1 Tablet(s) PO QD 08/10/2017 02/14/2018 Inactive Synthroid 112 mcg tablet RxNorm: 347773 1 Tablet(s) PO QD 08/10/2017 04/15/2018 Inactive oxycodone 10 mg tablet RxNorm: 5748382 1-2 Tablet(s) PO QID as n eeded for pain 07/19/2017 08/16/2017 Inactive Duragesic 100 mcg/hr transdermal patch RxNorm: 170589 2 Application TD Q48H for pain 07/19/2017 08/16/2017 Inactive Ventolin HFA 90 mcg/actuation aerosol inhaler RxNorm: 280514 2 Puff(s) INH Q4H as needed 07/12/2017 09/02/2017 Inactive Abilify 2 mg tablet RxNorm: 181279 1 Tablet(s) PO QD TA KE ONE TABLET BY MOUTH DAILY 07/06/2017 08/11/2017 Inactive gabapentin 800 mg tablet RxNorm: 666884 1 Tablet(s) PO TID 06/22/20 17 07/05/2017 Inactive Chantix Starting Month Box 0.5 mg (11)-1 mg (42) table ts in dose pack RxNorm: 842345 TAKE BY MOUTH INSTRUCTED - PER PACKAGE INSTRUCTIONS 06/0707/04/2017 Inactive Ventolin HFA 90 mcg/actuation aerosol inhaler RxNorm: 115222 2 Puff(s) INH Q4H as needed 05/26/2017 07/12/2017 Inactive Duragesic 100 mcg/hr transdermal patch RxNorm: 224713 2 Application TD Q48H for pain 05/19/2017 06/17/2017 Inactive oxycodone 10 mg tablet RxNorm: 1892218 1-2 Tablet(s) PO QID as n eeded for pain 05/19/2017 07/18/2017 Inactive Abilify 2 mg tablet RxNorm: 184589 TAKE ONE TABLET BY MOUTH DAILY 0 05/10/2017 07/05/2017 Inactive Synthroid 112 mcg tablet RxNorm: 336439 1 Tablet(s) PO QD 05/06/2017 08/10/2017 Inactive metformin ER 500 mg tablet,extended release 24 hr RxNorm: 86 0975 1 Tablet(s) PO QD 05/06/2017 08/10/2017 Inactive Topamax 100 mg tablet RxNorm: 210747 1 Tablet(s) PO QHS 05/06/2017 Inactive Premarin 0.45 mg tablet RxNorm: 158984 1 Tablet(s) PO QD 05/06/2017 0 04/15/2018 Inactive orphenadrine citrate ER 100 mg tablet,extended release RxNor m: 978675 1 Tablet(s) PO TID for muscle spasm--replaces methocarbamol 04/29/2017 Inactive oxycodone 10 mg tablet RxNorm: 7104613 1-2 Tablet(s) PO QID as n eeded for pain 04/21/2017 05/18/2017 Inactive Duragesic 100 mcg/hr transdermal patch RxNorm: 966818 2 Application TD Q48H for pain 04/21/2017 05/18/2017 Inactive fluoxetine 40 mg capsule RxNorm: 736145 Capsule(s) TAKE ONE CAPSULE BY MOUTH EVERY MORNING 04/20/2017 08/17/2017 Inactive Ventolin HFA 90 mcg/actuation aerosol inhaler RxNorm: 597445 2 Puff(s) INH Q4H as needed 04/05/2017 05/26/2017 Inactive Symbicort 160 mcg-4.5 mcg/actuation HFA aerosol inhaler RxNo rm: 7109762 2 Puff(s) INH BID 03/30/2017 04/15/2018 Inactive Spiriva with HandiHaler 18 mcg and inhalation capsules RxNor m: 794229 1 Capsule(s) INH QD USING HANDIHALER 03/30/2017 02/12/2019 Inactive Duragesic 100 mcg/hr transdermal patch RxNorm: 311997 2 Application TD Q48H for pain 03/18/2017 04/16/2017 Inactive oxycodone 10 mg tablet RxNorm: 4059923 1-2 Tablet(s) PO QID as n eeded for pain 03/18/2017 04/20/2017 Inactive metformin ER 500 mg tablet,extended release 24 hr RxNorm: 86 0975 Tablet(s) TAKE ONE TABLET BY MOUTH DAILY 03/01/2017 05/06/2017 Inactive Premarin 0.45 mg tablet RxNorm: 211177 Tablet(s) TAKE ONE TABLE T BY MOUTH DAILY 03/01/2017 05/06/2017 Inactive Synthroid 112 mcg tablet RxNorm: 541195 Tablet(s) TAKE ONE TABLET BY MOUTH DAILY 03/01/2017 05/06/2017 Inactive Daliresp 500 mcg tablet RxNorm: 2945853 1 Tablet(s) PO QD 03/01/2017 09/06/2017 Inactive 16.2 mg-0.1037 mg-0.0194 mg tablet RxNorm: 8841324 Tablet(s) PO PRN for gas and cramping 02/23/2017 04/28/2017 Inactive TAKE TWO TABLET S BY MOUTH THREE TIMES A DAY NEEDED FOR GAS AND CRAMPING gabapentin 800 mg tablet RxNorm: 631579 1 Tablet(s) PO TID repl aces 600mg 02/23/2017 04/28/2017 Inactive Duragesic 100 mcg/hr transdermal patch RxNorm: 770341 2 Application TD Q48H for pain 02/17/2017 03/17/2017 Inactive fluoxetine 20 mg capsule RxNorm: 349354 1 Capsule(s) PO QD 02/18/20 17 08/12/2017 Inactive oxycodone 20 mg tablet RxNorm: 5545331 1 Tablet(s) PO QID as nee ded for pain 02/17/2017 03/17/2017 Inactive Ventolin HFA 90 mcg/actuation aerosol inhaler RxNorm: 555928 INHALE TWO PUFFS BY MOUTH EVERY 4 HOURS NEEDED 02/15/2017 04/05/2017 Inactive Silvadene 1 % topical cream RxNorm: 573450 1 Application TOP BI D to burn area 02/01/2017 09/22/2017 Inactive Topamax 100 mg tablet RxNorm: 724147 TAKE ONE TABLET BY MOUTH EVERY NIGHT AT BEDTIME 01/29/2017 05/06/2017 Inactive Chantix Starting Month Box 0.5 mg (11)-1 mg (42) table ts in dose pack RxNorm: 872327 Tablet(s) PO as directed 01/29/2017 06/01/2017 Inactive Abilify 2 mg tablet RxNorm: 382279 TAKE ONE TABLET BY MOUTH DAILY 0 01/26/2017 04/25/2017 Inactive Chantix Starting Month Box 0.5 mg (11)-1 mg (42) table ts in dose pack RxNorm: 393418 Tablet(s) PO as directed 01/20/2017 01/28/2017 Inactive gabapentin 600 mg tablet RxNorm: 014814 1 Tablet(s) PO TID 01/21/20 17 02/22/2017 Inactive Chantix Continuing Month Box 1 mg tablet RxNorm: 113239 1 Table t(s) PO BID 12/31/2016 06/01/2017 Inactive Spiriva with HandiHaler 18 mcg and inhalation capsules RxNor m: 088082 INHALE THE ENTIRE CONTENTS OF 1 CAPSULE ONCE A DAY USING HANDIHALER 12/31/201607/2017 Inactive Synthroid 112 mcg tablet RxNorm: 648809 TAKE ONE TABLET BY MOUT H DAILY 12/30/2016 03/01/2017 Inactive metformin ER 500 mg tablet,extended release 24 hr RxNorm: 86 0975 TAKE ONE TABLET BY MOUTH DAILY 12/30/2016 03/01/2017 Inactive Premarin 0.45 mg tablet RxNorm: 447707 TAKE ONE TABLET BY MOUTH DAILY 12/30/2016 03/01/2017 Inactive omeprazole 40 mg capsule,delayed release RxNorm: 378362 TAKE ONE CAPSULE BY MOUTH DAILY 12/30/2016 01/25/2018 Inactive Ventolin HFA 90 mcg/actuation aerosol inhaler RxNorm: 901933 INHALE TWO PUFFS BY MOUTH EVERY 4 HOURS NEEDED 12/28/2016 02/13/2017 Inactive fluoxetine 40 mg capsule RxNorm: 370294 TAKE ONE CAPSULE BY BENOIT TH EVERY MORNING 12/15/2016 04/20/2017 Inactive Chantix Continuing Month Box 1 mg tablet RxNorm: 116752 TAKE ONE TABLET BY MOUTH TWICE A DAY 12/04/2016 12/31/2016 Inactive doxycycline hyclate 100 mg capsule RxNorm: 4537868 1 Capsule(s) PO BID 12/01/2016 12/07/2016 Inactive Levaquin 750 mg tablet RxNorm: 173737 1 Tablet(s) PO QD 12/01/2016 Inactive Abilify 2 mg tablet RxNorm: 763592 TAKE ONE TABLET BY MOUTH DAILY 0 11/25/2016 11/30/2016 Inactive Ventolin HFA 90 mcg/actuation aerosol inhaler RxNorm: 760823 INHALE TWO PUFFS BY MOUTH EVERY 4 HOURS NEEDED 11/02/2016 12/19/2016 Inactive Chantix Continuing Month Box 1 mg tablet RxNorm: 783492 Tablet(s) PO as directed 10/30/2016 12/03/2016 Inactive Symbicort 160 mcg-4.5 mcg/actuation HFA aerosol inhaler RxNo rm: 8572293 INHALE TWO PUFFS TWO TIMES A DAY 10/30/2016 03/30/2017 Inactive Abilify 2 mg tablet RxNorm: 081287 1 Tablet(s) PO QD 10/27/201611/24 Inactive amoxicillin 500 mg capsule RxNorm: 975516 1 Capsule(s) PO TID 10/1410/23/2016 Inactive amoxicillin 500 mg capsule RxNorm: 445303 1 Capsule(s) PO TID 10/1410/13/2016 Inactive Synthroid 112 mcg tablet RxNorm: 144324 TAKE ONE TABLET BY MOUT H DAILY 09/28/2016 12/29/2016 Inactive Topamax 100 mg tablet RxNorm: 036014 TAKE ONE TABLET BY MOUTH EVERY NIGHT AT BEDTIME 09/28/2016 01/28/2017 Inactive Premarin 0.45 mg tablet RxNorm: 698556 TAKE ONE TABLET BY MOUTH DAILY 09/28/2016 12/29/2016 Inactive metformin ER 500 mg tablet,extended release 24 hr RxNorm: 86 0975 TAKE ONE TABLET BY MOUTH DAILY 09/28/2016 12/29/2016 Inactive Ventolin HFA 90 mcg/actuation aerosol inhaler RxNorm: 951934 INHALE TWO PUFFS BY MOUTH EVERY 4 HOURS NEEDED 09/22/2016 10/23/2016 Inactive Pulmicort 1 mg/2 mL suspension for nebulization RxNorm: 6168 19 1 Unit Dose INH BID Dx: COPD (J44.9) 09/10/2016 08/16/2017 Inactive Pulmicort 1 mg/2 mL suspension for nebulization RxNorm: 6168 19 1 Unit Dose INH BID 09/10/2016 09/09/2016 Inactive Brovana 15 mcg/2 mL solution for nebulization RxNorm: 066749 1 Unit Dose INH BID Dx: COPD (J44.9) 09/10/2016 01/25/2018 Inactive Brovana 15 mcg/2 mL solution for nebulization RxNorm: 721800 1 Unit Dose INH BID 09/10/2016 09/09/2016 Inactive ipratropium-albuterol 0.5 mg-3 mg(2.5 mg base)/3 mL ne bulization soln RxNorm: 4887948 1 Unit Dose INH Q4H as needed Dx: COPD (J44.9) 09/10/2016 0 02/12/2019 Inactive orphenadrine citrate ER 100 mg tablet,extended release RxNor m: 398902 1 Tablet(s) PO BID for muscle spasm--replaces methocarbamol 09/09/2016 Inactive Chantix Continuing Month Box 1 mg tablet RxNorm: 889885 Tablet(s) PO as directed 09/09/2016 10/30/2016 Inactive orphenadrine citrate ER 100 mg tablet,extended release RxNor m: 568382 1 Tablet(s) PO BID for muscle spasm 09/09/2016 09/08/2016 Inactive Spiriva with HandiHaler 18 mcg and inhalation capsules RxNor m: 693308 INHALE THE ENTIRE CONTENTS OF 1 CAPSULE ONCE A DAY USING HANDIHALER 09/01/201605/2017 Inactive Daliresp 500 mcg tablet RxNorm: 5404797 1 Tablet(s) PO QD 08/27/2016 03/01/2017 Inactive prednisone 20 mg tablet RxNorm: 086031 3 Tablet(s) PO T ID for 3 days then 1 po BID for 3 days then one daily for 3 days 08/26/2016 04/28/2017 Inactiv e Wellbutrin XL 300 mg 24 hr tablet, extended release RxNorm: 389160 TAKE ONE TABLET BY MOUTH EVERY MORNING 07/29/2016 10/26/2016 Inactive gabapentin 600 mg tablet RxNorm: 967448 1 Tablet(s) PO BID 06/26/20 16 12/22/2016 Inactive fluoxetine 40 mg capsule RxNorm: 988517 TAKE ONE CAPSULE BY BENOIT TH EVERY MORNING 06/24/2016 11/20/2016 Inactive Duragesic 100 mcg/hr transdermal patch RxNorm: 322494 2 Application TD Q48H for pain 06/05/2016 07/04/2016 Inactive oxycodone 10 mg tablet RxNorm: 1857829 1-2 Tablet(s) PO QID as n eeded for pain 06/05/2016 03/17/2017 Inactive Belladonna-Phenobarbital 48 mg tablet,extended release RxNor m: 2 Tablet(s) PO TID 06/05/2016 01/19/2017 Inactive Premarin 0.45 mg tablet RxNorm: 299029 TAKE ONE TABLET BY MOUTH DAILY 05/27/2016 09/23/2016 Inactive Topamax 100 mg tablet RxNorm: 116173 TAKE ONE TABLET BY MOUTH EVERY NIGHT AT BEDTIME 05/27/2016 09/27/2016 Inactive Synthroid 112 mcg tablet RxNorm: 520669 TAKE ONE TABLET BY MOUT H DAILY 05/27/2016 09/23/2016 Inactive metformin ER 500 mg tablet,extended release 24 hr RxNorm: 86 0975 TAKE ONE TABLET BY MOUTH DAILY 05/27/2016 09/23/2016 Inactive Symbicort 160 mcg-4.5 mcg/actuation HFA aerosol inhaler RxNo rm: 2547594 INHALE TWO PUFFS TWO TIMES A DAY 05/27/2016 10/23/2016 Inactive Ventolin HFA 90 mcg/actuation aerosol inhaler RxNorm: 335175 INHALE TWO PUFFS BY MOUTH EVERY 4 HOURS NEEDED 05/21/2016 07/07/2016 Inactive omeprazole 40 mg capsule,delayed release RxNorm: 581871 1 Capsu le(s) PO QD 05/06/2016 08/03/2016 Inactive metformin ER 500 mg tablet,extended release 24 hr RxNorm: 86 0975 TAKE ONE TABLET BY MOUTH DAILY 04/23/2016 05/22/2016 Inactive methocarbamol 750 mg tablet RxNorm: 385244 2 Tablet(s) PO TID as needed for muscle spasm 04/23/2016 09/08/2016 Inactive Synthroid 112 mcg tablet RxNorm: 083582 TAKE ONE TABLET BY MOUT H DAILY 04/23/2016 05/22/2016 Inactive Spiriva with HandiHaler 18 mcg and inhalation capsules RxNor m: 746135 INHALE THE ENTIRE CONTENTS OF 1 CAPSULE ONCE A DAY USING HANDIHALER 04/09/201608/2016 Inactive Diflucan 100 mg tablet RxNorm: 606913 1 Tablet(s) PO QD 04/08/2016 Inactive doxycycline hyclate 100 mg capsule RxNorm: 7179533 1 Capsule(s) PO BID 04/08/2016 04/17/2016 Inactive doxycycline hyclate 100 mg capsule RxNorm: 1642556 1 Capsule(s) PO BID 04/08/2016 04/07/2016 Inactive Diflucan 100 mg tablet RxNorm: 857591 1 Tablet(s) PO QD 04/08/2016 Inactive ondansetron HCl 4 mg tablet RxNorm: 838041 1 Tablet(s) PO Q4H as needed for nausea and vomiting 04/08/2016 09/22/2017 Inactive gabapentin 600 mg tablet RxNorm: 205432 TAKE ONE TABLET BY MOUT H TWICE A DAY 03/24/2016 06/25/2016 Inactive Synthroid 112 mcg tablet RxNorm: 345426 TAKE ONE TABLET BY MOUT H DAILY 02/25/2016 04/22/2016 Inactive Levaquin 500 mg tablet RxNorm: 812478 1 Tablet(s) PO QD 01/23/2016 Inactive prednisone 20 mg tablet RxNorm: 965127 1 Tablet(s) PO T ID for 3 days then 1 po BID for 3 days then one daily for 3 days 01/23/2016 08/25/2016 Inactiv e Just Sing It Ultra Test strips RxNorm: TEST BLOOD SUGAR ONCE DAILY 250.00 01/09/2016 11/04/2017 Inactive methocarbamol 750 mg tablet RxNorm: 343664 2 Tablet(s) PO TID as needed for muscle spasm 01/09/2016 04/23/2016 Inactive lactulose 10 gram/15 mL oral solution RxNorm: 394738 [address](s) PO QD 01/09/2016 09/22/2017 Inactive TAKE 1 TABLESPOON BY MOUTH ONCE DAILY metformin ER 500 mg tablet,extended release 24 hr RxNorm: 86 0975 1 Tablet(s) PO QD 12/26/2015 04/22/2016 Inactive fluoxetine 20 mg capsule RxNorm: 403903 1 Capsule(s) PO QD 12/23/19 16 06/19/2016 Inactive Premarin 0.45 mg tablet RxNorm: 660041 TAKE ONE TABLET BY MOUTH DAILY 12/23/2015 05/20/2016 Inactive fluoxetine 40 mg capsule RxNorm: 766407 1 Capsule(s) PO QD 12/23/19 16 06/19/2016 Inactive TAKE ONE CAPSULE BY MOUTH EV JANKI MORNING azithromycin 500 mg tablet RxNorm: 191543 1 Tablet(s) PO QD 016 12/19/2015 Inactive Zofran 4 mg tablet RxNorm: 720764 1 Tablet(s) PO Q4H prn nausea /vomiting 12/13/2015 03/30/2018 Inactive azithromycin 500 mg tablet RxNorm: 601532 1 Tablet(s) PO QD 016 12/12/2015 Inactive Duragesic 100 mcg/hr transdermal patch RxNorm: 563398 2 Application TD Q48H for pain 12/09/2015 01/07/2016 Inactive oxycodone 10 mg tablet RxNorm: 5572372 1-2 Tablet(s) PO QID as n eeded for pain 12/09/2015 06/04/2016 Inactive Bactroban 2 % topical cream RxNorm: 849998 Application TOP BID 11/2208/25/2016 Inactive doxycycline hyclate 100 mg capsule RxNorm: 5463757 1 Capsule(s) PO BID 12/03/2015 12/12/2015 Inactive Topamax 100 mg tablet RxNorm: 515384 TAKE ONE TABLET BY MOUTH EVERY NIGHT AT BEDTIME 11/25/2015 05/22/2016 Inactive Symbicort 160 mcg-4.5 mcg/actuation HFA aerosol inhaler RxNo rm: 7274475 INHALE TWO PUFFS TWO TIMES A DAY 11/25/2015 05/22/2016 Inactive Synthroid 112 mcg tablet RxNorm: 698949 Tablet(s) TAKE ONE TABLET BY MOUTH DAILY 11/25/2015 02/22/2016 Inactive omeprazole 40 mg capsule,delayed release RxNorm: 692643 1 Capsu le(s) PO QD 11/12/2015 05/05/2016 Inactive oxycodone 10 mg tablet RxNorm: 1220320 1-2 Tablet(s) PO QID as n eeded for pain 11/05/2015 12/08/2015 Inactive Duragesic 100 mcg/hr transdermal patch RxNorm: 724137 2 Application TD Q48H for pain 11/05/2015 12/04/2015 Inactive omeprazole 40 mg capsule,delayed release RxNorm: 628637 1 Capsu le(s) PO QD 10/07/2015 11/11/2015 Inactive Januvia 100 mg tablet RxNorm: 889530 TAKE ONE TABLET BY MOUTH DAILY 09/11/2015 12/25/2015 Inactive Zithromax 500 mg tablet RxNorm: 579580 1 Tablet(s) PO QD 09/10/2015 1 Inactive prednisone 20 mg tablet RxNorm: 943769 1 Tablet(s) PO T ID for 3 days then 1 po BID for 3 days then one daily for 3 days 09/10/2015 08/25/2016 Inactiv e Wellbutrin XL 300 mg 24 hr tablet, extended release RxNorm: 037467 1 Tablet(s) PO QAM 09/10/2015 12/02/2015 Inactive Topamax 100 mg tablet RxNorm: 605422 TAKE ONE TABLET BY MOUTH EVERY NIGHT AT BEDTIME 09/02/2015 11/24/2015 Inactive Synthroid 112 mcg tablet RxNorm: 101735 TAKE ONE TABLET BY MOUT H DAILY 09/02/2015 11/25/2015 Inactive methocarbamol 750 mg tablet RxNorm: 267909 2 Tablet(s) PO TID as needed for muscle spasm 08/15/2015 01/09/2016 Inactive Wellbutrin XL 150 mg 24 hr tablet, extended release RxNorm: 150087 TAKE ONE TABLET BY MOUTH EVERY MORNING 08/13/2015 08/13/2015 Inactive gabapentin 600 mg tablet RxNorm: 907714 1 Tablet(s) PO BID 08/13/20 15 02/08/2016 Inactive Wellbutrin XL 300 mg 24 hr tablet, extended release RxNorm: 697148 1 Tablet(s) PO QAM 08/06/2015 09/09/2015 Inactive Wellbutrin XL 150 mg 24 hr tablet, extended release RxNorm: 194869 1 Tablet(s) PO QAM 07/18/2015 08/05/2015 Inactive prednisone 20 mg tablet RxNorm: 627685 1 Tablet(s) PO BID 07/18/2015 07/22/2015 Inactive doxycycline hyclate 100 mg tablet,delayed release RxNorm: 43 4018 1 Tablet(s) PO BID 07/18/2015 07/27/2015 Inactive pravastatin 40 mg tablet RxNorm: 964240 1 Tablet(s) PO QD NEEDS FASTING LAB 07/15/2015 07/14/2015 Inactive pravastatin 40 mg tablet RxNorm: 253150 1 Tablet(s) PO QD NEEDS FASTING LAB 07/15/2015 01/25/2018 Inactive Ventolin HFA 90 mcg/actuation aerosol inhaler RxNorm: 117717 2 Puff(s) INH Q4H 07/08/2015 07/07/2015 Inactive prn Premarin 0.45 mg tablet RxNorm: 229272 1 Tablet(s) PO QD 07/01/2015 0 12/22/2015 Inactive pravastatin 40 mg tablet RxNorm: 445052 1 Tablet(s) PO QD NEEDS FASTING LAB 06/14/2015 07/15/2015 Inactive Ventolin HFA 90 mcg/actuation aerosol inhaler RxNorm: 7422761 2 Puff(s) INH Q4H 06/06/2015 07/08/2015 Inactive prn albuterol sulfate 2.5 mg/3 mL (0.083 %) solution for n ebulization RxNorm: 386862 1 Unit Dose INH QID 05/30/2015 No Stop Date Active Duragesic 100 mcg/hr transdermal patch RxNorm: 872908 2 Application TD Q48H for pain 04/29/2015 05/28/2015 Inactive gabapentin 600 mg tablet RxNorm: 773577 1 Tablet(s) PO BID 04/11/20 15 08/13/2015 Inactive Onglyza 5 mg tablet RxNorm: 851809 1 Tablet(s) PO QD for blood suga r 04/10/2015 04/15/2015 Inactive [Brand Copay Card: RxBIN:[id number] PCN:CRISTIANA RxGRP:[id number] ID#:[id number]] methocarbamol 750 mg tablet RxNorm: 697764 2 Tablet(s) PO TID as needed for muscle spasm 03/28/2015 08/15/2015 Inactive pravastatin 40 mg tablet RxNorm: 134333 1 Tablet(s) PO QD 03/19/2015 03/18/2015 Inactive pravastatin 40 mg tablet RxNorm: 149582 1 Tablet(s) PO QD 03/19/2015 06/14/2015 Inactive lactulose 10 gram/15 mL oral solution RxNorm: 760276 [address]s) PO QD 03/07/2015 01/09/2016 Inactive TAKE 1 TABLESPOON BY MOUTH ONCE DAILY oxycodone 20 mg tablet RxNorm: 5893743 1 Tablet(s) PO QID as nee ded for pain 03/05/2015 07/08/2015 Inactive Topamax 100 mg tablet RxNorm: 556134 1 Tablet(s) PO QHS TAKE ONE TABLET BY MOUTH AT BEDTIME 02/25/2015 02/12/2019 Inactive metformin ER 500 mg tablet,extended release 24 hr RxNorm: 86 0975 1 Tablet(s) PO QD 02/11/2015 03/04/2015 Inactive take one tablet by mouth every day Daliresp 500 mcg tablet RxNorm: 4065533 1 Tablet(s) PO QD 02/11/2015 08/09/2015 Inactive Endocet 10 mg-325 mg tablet RxNorm: 1782551 1 Tablet(s) PO Q4H as needed for pain 01/23/2015 01/23/2015 Inactive gabapentin 600 mg tablet RxNorm: 461711 1 Tablet(s) PO BID 01/23/20 15 04/11/2015 Inactive methocarbamol 750 mg tablet RxNorm: 849727 2 Tablet(s) PO TID as needed for muscle spasm 01/15/2015 02/13/2015 Inactive fluoxetine 40 mg capsule RxNorm: 065409 1 Capsule(s) PO QD 01/14/20 15 12/23/2015 Inactive TAKE ONE CAPSULE BY MOUTH EV JANKI MORNING fluoxetine 20 mg capsule RxNorm: 415941 1 Capsule(s) PO QD 01/14/20 15 12/23/2015 Inactive Premarin 0.45 mg tablet RxNorm: 377850 1 Tablet(s) PO QD 01/02/2015 0 07/01/2015 Inactive Endocet 10 mg-325 mg tablet RxNorm: 8807896 1-2 Tablet(s) PO Q4H 02/12/2019 Inactive PRN PAIN Duragesic 100 mcg/hr transdermal patch RxNorm: 403188 2 Application TD Q48H for pain 12/25/2014 01/23/2015 Inactive Topamax 100 mg tablet RxNorm: 166633 1 Tablet(s) PO QHS TAKE ONE TABLET BY MOUTH AT BEDTIME 12/25/2014 02/24/2015 Inactive Tudorza Pressair 400 mcg/actuation breath activated RxNorm: 0215434 1 BID INHALE ONE PUFF INTO LUNGS TWO TIMES A DAY 12/17/2014 05/15/2015 Inactive Endocet 10 mg-325 mg tablet RxNorm: 1931443 1-2 Tablet(s) PO Q4H 12/19/2014 Inactive PRN PAIN Duragesic 100 mcg/hr transdermal patch RxNorm: 413960 2 Application TD Q48H for pain 11/20/2014 12/24/2014 Inactive OneTouch Ultra Test strips RxNorm: TEST BLOOD SUGAR ONCE DAILY 250.00 11/16/2014 01/08/2016 Inactive omeprazole 40 mg capsule,delayed release RxNorm: 336803 1 Capsu le(s) PO QD 11/13/2014 11/12/2015 Inactive metformin ER 500 mg tablet,extended release 24 hr RxNorm: 86 0975 1 Tablet(s) PO QD 11/12/2014 02/11/2015 Inactive take one tablet by mouth every day Symbicort 160 mcg-4.5 mcg/actuation HFA aerosol inhaler RxNo rm: 6130359 2 Puff(s) INH BID 11/12/2014 03/11/2015 Inactive INHALE 2 PUFFS O RALLY TWO TIMES A DAY gabapentin 800 mg tablet RxNorm: 849674 1 Tablet(s) PO QD TAKE ONE TABLET BY MOUTH ONCE A DAY 10/22/2014 01/01/2015 Inactive Endocet 10 mg-325 mg tablet RxNorm: 2830132 1-2 Tablet(s) PO Q4H 11/15/2014 Inactive PRN PAIN Duragesic 100 mcg/hr transdermal patch RxNorm: 965769 2 Application TD Q48H for pain 10/17/2014 11/19/2014 Inactive gabapentin 800 mg tablet RxNorm: 920139 1 Tablet(s) PO QD TAKE ONE TABLET BY MOUTH ONCE A DAY 10/04/2014 10/21/2014 Inactive Premarin 0.9 mg tablet RxNorm: 866186 1 Tablet(s) PO QD TAKE ONE TABLET BY MOUTH ONCE A DAY 10/04/2014 01/01/2015 Inactive Spiriva with HandiHaler 18 mcg & inhalation capsules RxNorm: 497407 1 Capsule(s) INH QD 10/03/2014 04/30/2015 Inactive Levaquin 500 mg tablet RxNorm: 609479 1 Tablet(s) PO QD 10/03/2014 Inactive prednisone 20 mg tablet RxNorm: 229795 1 Tablet(s) PO QD 10/03/2014 1 12/09/2013 Inactive Duragesic 100 mcg/hr transdermal patch RxNorm: 000183 2 Application TD Q48H for pain 09/18/2014 10/16/2014 Inactive Endocet 10 mg-325 mg tablet RxNorm: 3475646 1-2 Tablet(s) PO Q4H 10/16/2014 Inactive PRN PAIN Synthroid 112 mcg tablet RxNorm: 470787 1 Tablet(s) QD 09/10/2014 Inactive Synthroid 112 mcg tablet RxNorm: 108063 TAKE ONE TABLET BY MOUTH ONE TIME A DAY. NEEDS LABS 09/10/2014 02/06/2015 Inactive omeprazole 40 mg capsule,delayed release RxNorm: 842105 1 Capsu le(s) PO QD 09/03/2014 11/13/2014 Inactive omeprazole 40 mg capsule,delayed release RxNorm: 281950 1 Capsu le(s) PO QD 09/03/2014 09/02/2014 Inactive Spiriva with HandiHaler 18 mcg & inhalation capsules RxNorm: 276252 1 Capsule(s) INH QD 08/27/2014 10/02/2014 Inactive gabapentin 600 mg tablet RxNorm: 382439 1 Tablet(s) PO BID 08/27/20 14 10/22/2014 Inactive Endocet 10 mg-325 mg tablet RxNorm: 1858303 1-2 Tablet(s) PO Q4H 09/17/2014 Inactive PRN PAIN fentanyl 100 mcg/hr transdermal patch RxNorm: 620452 1 Unit Dos e TD QD 08/21/2014 09/19/2014 Inactive Daliresp 500 mcg tablet RxNorm: 0192577 1 Tablet(s) PO QD 08/13/2014 02/11/2015 Inactive Synthroid 112 mcg tablet RxNorm: 054999 TAKE ONE TABLET BY MOUTH ONE TIME A DAY. NEEDS LABS 08/10/2014 09/10/2014 Inactive Endocet 10 mg-325 mg tablet RxNorm: 4896144 1-2 Tablet(s) PO Q4H 08/17/2014 Inactive PRN PAIN Duragesic 100 mcg/hr transdermal patch RxNorm: 628051 2 Application TD Q48H for pain 07/19/2014 09/17/2014 Inactive fluoxetine 40 mg capsule RxNorm: 787847 1 Capsule(s) PO QD 07/17/20 14 01/14/2015 Inactive TAKE ONE CAPSULE BY MOUTH EV JANKI MORNING fluoxetine 20 mg capsule RxNorm: 556798 1 Capsule(s) PO QD 07/17/20 14 01/14/2015 Inactive Spiriva with HandiHaler 18 mcg & inhalation capsules RxNorm: 422930 1 Capsule(s) INH QD 07/17/2014 08/26/2014 Inactive INHALE CONTENTS OF 1 CAPSULE(S) WITH HANDIHALER ONCE DAILY Zofran 4 mg tablet RxNorm: 900053 1 Tablet(s) PO Q4H prn nausea 07/25/2014 Inactive Synthroid 112 mcg tablet RxNorm: 566496 1 Tablet(s) PO QD 07/09/2014 07/09/2014 Inactive methocarbamol 750 mg tablet RxNorm: 273873 2 Tablet(s) PO TID as needed for muscle spasm 07/09/2014 09/06/2014 Inactive Synthroid 112 mcg tablet RxNorm: 296526 1 Tablet(s) PO QD - nee d labs 07/09/2014 08/07/2014 Inactive Medrol (Aníbal) 4 mg tablets in a dose pack RxNorm: 068877 6 Tablet(s) PO QD --then as directed 07/03/2014 07/08/2014 Inactive Tudorza Pressair 400 mcg/actuation breath activated RxNorm: 0174816 1 Puff(s) INH BID 07/03/2014 12/17/2014 Inactive cefdinir 300 mg capsule RxNorm: 031857 1 Capsule(s) PO BID 07/03/20 14 07/12/2014 Inactive Topamax 100 mg tablet RxNorm: 739688 Tablet(s) TAKE ONE TABLET BY MOUTH AT BEDTIME 07/02/2014 02/25/2015 Inactive Duragesic 100 mcg/hr transdermal patch RxNorm: 398505 2 Application TD Q48H for pain 06/25/2014 07/18/2014 Inactive Endocet 10 mg-325 mg tablet RxNorm: 1817989 1-2 Tablet(s) PO Q4H 07/18/2014 Inactive PRN PAIN metformin ER 500 mg tablet,extended release 24 hr RxNorm: 86 0975 1 Tablet(s) PO QD Needs labs 06/18/2014 07/01/2014 Inactive take one tablet by mouth every day Duragesic 100 mcg/hr transdermal patch RxNorm: 612968 2 Application TD Q48H for pain 05/22/2014 06/24/2014 Inactive Synthroid 112 mcg tablet RxNorm: 350646 1 Tablet(s) PO QD 05/22/2014 07/09/2014 Inactive Endocet 10 mg-325 mg tablet RxNorm: 9715630 1-2 Tablet(s) PO Q4H 06/20/2014 Inactive PRN PAIN Endocet 10 mg-325 mg tablet RxNorm: 9866391 1-2 Tablet(s) PO Q4H 05/21/2014 Inactive PRN PAIN Duragesic 100 mcg/hr transdermal patch RxNorm: 125769 2 Application TD Q48H for pain 04/25/2014 05/21/2014 Inactive Daliresp 500 mcg tablet RxNorm: 5484934 1 Tablet(s) PO QD 04/24/2014 08/13/2014 Inactive Symbicort 160 mcg-4.5 mcg/actuation HFA aerosol inhaler RxNo rm: 7242565 2 Puff(s) INH BID 04/24/2014 08/21/2014 Inactive INHALE 2 PUFFS O RALLY TWO TIMES A DAY metformin ER 500 mg tablet,extended release 24 hr RxNorm: 86 0975 1 Tablet(s) PO QD 04/24/2014 11/12/2014 Inactive TAKE ONE TABLET BY MOUTH EVERY DAY [AttnRPh:Saving Apply/Adjudicate RxGRP:LDMGRP RxBIN:[id number] RxPCN:2012 PCode:01 ID#:[id number]] Symbicort 160 mcg-4.5 mcg/actuation HFA aerosol inhaler RxNo rm: [id number] 2 Puff(s) INH BID 04/24/2014 11/12/2014 Inactive INHALE 2 PUFFS O RALLY TWO TIMES A DAY Premarin 0.9 mg tablet RxNorm: 646345 1 Tablet(s) PO QD 04/24/2014 Inactive TAKE ONE TABLET BY MOUTH EVERY DAY metformin ER 500 mg tablet,extended release 24 hr RxNorm: 86 0975 1 Tablet(s) PO QD Needs labs 04/24/2014 06/18/2014 Inactive TAKE ONE TABLET BY MOUTH EVERY DAY [AttnRPh:Saving Apply/Adjudicate RxGRP:LDMGRP RxBIN:[id number] RxPCN:2012 PCode:01 ID#:[id number]] gabapentin 800 mg tablet RxNorm: 590535 1 Tablet(s) PO QD 04/24/2014 10/04/2014 Inactive TAKE ONE TABLET BY MOUTH EVERY DAY Topamax 100 mg tablet RxNorm: 601550 1 Tablet(s) PO QHS 04/17/2014 Inactive Topamax 100 mg tablet RxNorm: 675066 TAKE ONE TABLET BY MOUTH A T BEDTIME 04/17/2014 07/01/2014 Inactive Tudorza Pressair 400 mcg/actuation breath activated RxNorm: 6727040 1 Puff(s) INH BID 04/11/2014 07/02/2014 Inactive Duragesic 100 mcg/hr transdermal patch RxNorm: 497668 2 Application TD Q48H for pain 03/27/2014 04/24/2014 Inactive Endocet 10 mg-325 mg tablet RxNorm: 1748791 1-2 Tablet(s) PO Q4H 04/24/2014 Inactive PRN PAIN Robaxin 750 mg tablet RxNorm: 027638 2 Tablet(s) PO TID as need ed for spasm 02/23/2014 03/28/2015 Inactive Duragesic 100 mcg/hr transdermal patch RxNorm: 300587 2 Application TD Q48H for pain 02/23/2014 No Stop Date Active Endocet 10 mg-325 mg tablet RxNorm: 7995831 1-2 Tablet(s) PO Q4H 03/23/2014 Inactive PRN PAIN Synthroid 112 mcg tablet RxNorm: 250573 1 Tablet(s) PO QD TAKE ONE TABLET BY MOUTH EVERY DAY 02/15/2014 05/22/2014 Inactive Zithromax 500 mg tablet RxNorm: 635825 1 Tablet(s) PO QD 01/30/2014 0 02/05/2014 Inactive Diflucan 100 mg tablet RxNorm: 168158 1 Tablet(s) PO QD 01/30/2014 Inactive prednisone 20 mg tablet RxNorm: 509348 1 Tablet(s) PO BID 01/30/2014 02/05/2014 Inactive fluoxetine 40 mg capsule RxNorm: 137042 1 Capsule(s) PO QD 01/23/20 14 07/16/2014 Inactive TAKE ONE CAPSULE BY MOUTH EV JANKI MORNING fluoxetine 40 mg capsule RxNorm: 403232 1 Capsule(s) PO QD 01/23/20 14 07/17/2014 Inactive TAKE ONE CAPSULE BY MOUTH EV JAKNI MORNING cefdinir 300 mg capsule RxNorm: 160946 1 Capsule(s) PO BID 01/16/20 14 01/29/2014 Inactive Zithromax 500 mg tablet RxNorm: 200864 1 Tablet(s) PO QD 01/16/2014 0 01/22/2014 Inactive prednisone 20 mg tablet RxNorm: 759203 1 Tablet(s) PO BID 01/16/2014 01/22/2014 Inactive Spiriva with HandiHaler 18 mcg and inhalation capsules RxNor m: 397308 1 Capsule(s) INH QD 12/18/2013 07/17/2014 Inactive INHALE CONTENT S OF 1 CAPSULE(S) WITH HANDIHALER ONCE DAILY fluoxetine 20 mg capsule RxNorm: 216898 1 Capsule(s) PO QD 12/18/19 14 06/15/2014 Inactive Spiriva with HandiHaler 18 mcg & inhalation capsules RxNorm: 023341 1 Capsule(s) INH QD 12/18/2013 06/15/2014 Inactive INHALE CONTENTS OF 1 CAPSULE(S) WITH HANDIHALER ONCE DAILY fluoxetine 20 mg capsule RxNorm: 112530 1 Capsule(s) PO QD 12/18/19 14 07/17/2014 Inactive cefdinir 300 mg capsule RxNorm: 107679 2 Capsule(s) PO QD 12/12/2013 12/21/2013 Inactive Duragesic 100 mcg/hr transdermal patch RxNorm: 597976 2 Application TD Q48H for pain 12/08/2013 12/07/2013 Inactive Topamax 100 mg tablet RxNorm: 489175 1 Tablet(s) PO QHS 12/04/2013 Inactive Endocet 10 mg-325 mg tablet RxNorm: 6112952 1-2 Tablet(s) PO Q4H 12/26/2013 Inactive PRN PAIN Robaxin 750 mg tablet RxNorm: 036003 2 Tablet(s) PO TID as need ed for spasm 11/07/2013 01/05/2014 Inactive gabapentin 800 mg tablet RxNorm: 659939 1 Tablet(s) PO QD 10/16/2013 04/24/2014 Inactive TAKE ONE TABLET BY MOUTH EVERY DAY Symbicort 160 mcg-4.5 mcg/actuation HFA aerosol inhaler RxNo rm: 1418003 2 Puff(s) INH BID 10/16/2013 04/24/2014 Inactive INHALE 2 PUFFS O RALLY TWO TIMES A DAY Premarin 0.9 mg tablet RxNorm: 783429 1 Tablet(s) PO QD 10/16/2013 Inactive TAKE ONE TABLET BY MOUTH EVERY DAY metformin ER 500 mg tablet,extended release 24 hr RxNorm: 86 0975 1 Tablet(s) PO QD 10/16/2013 04/24/2014 Inactive TAKE ONE TABLET BY MOUTH EVERY DAY Daliresp 500 mcg tablet RxNorm: 5544882 1 Tablet(s) PO QD 10/16/2013 04/24/2014 Inactive Robaxin 750 mg tablet RxNorm: 585510 2 Tablet(s) PO TID as need ed for spasm 10/10/2013 11/06/2013 Inactive Duragesic 100 mcg/hr transdermal patch RxNorm: 530907 2 Application TD Q48H for pain 10/09/2013 No Stop Date Active Soma 350 mg tablet RxNorm: 934927 1 Tablet(s) PO TID 09/27/201310/09 Inactive TAKE ONE TABLET BY MOUTH THREE TIMES A D AY lactulose 10 gram/15 mL oral solution RxNorm: 803422 [address](s) PO QD 09/13/2013 03/07/2015 Inactive TAKE 1 TABLESPOON BY MOUTH ONCE DAILY Duragesic 100 mcg/hr transdermal patch RxNorm: 974195 2 Application TD Q48H for pain 09/06/2013 No Stop Date Active Endocet 10 mg-325 mg tablet RxNorm: 7209959 1-2 Tablet(s) PO Q4H 09/27/2013 Inactive PRN PAIN lancets 28 gauge RxNorm: Miscellaneous As needed for blo od glucose sticks 08/24/2013 No Stop Date Active 16.2 mg-0.1037 mg-0.0194 mg tablet RxNorm: 7138008 Tablet(s) PO PRN for gas and cramping 08/24/2013 01/19/2017 Inactive TAKE TWO TABLET S BY MOUTH THREE TIMES A DAY NEEDED FOR GAS AND CRAMPING Topamax 100 mg tablet RxNorm: 464340 1 Tablet(s) PO QHS 07/31/2013 Inactive Diflucan 100 mg tablet RxNorm: 592593 1 Tablet(s) PO QD 07/27/2013 Inactive cefdinir 300 mg capsule RxNorm: 391173 1 Capsule(s) PO BID 07/26/20 13 08/08/2013 Inactive Daliresp 500 mcg tablet RxNorm: 2069580 1 Tablet(s) PO QD 07/25/2013 10/15/2013 Inactive fluoxetine 40 mg capsule RxNorm: 484136 1 Capsule(s) PO QD 07/25/20 13 01/22/2014 Inactive TAKE ONE CAPSULE BY MOUTH EV JANKI MORNING Senokot-S 8.6 mg-50 mg tablet RxNorm: 3664521 1 Tablet(s) PO BID 10/25/2013 Inactive doxycycline hyclate 100 mg capsule RxNorm: 0439126 1 Capsule(s) PO BID 06/28/2013 07/07/2013 Inactive prednisone 20 mg tablet RxNorm: 178132 1 Tablet(s) PO BID 06/28/2013 07/04/2013 Inactive Zofran 4 mg tablet RxNorm: 977007 1 Tablet(s) PO Q4H prn nausea 03/201307/05/2013 Inactive Spiriva with HandiHaler 18 mcg & inhalation capsules RxNorm: 282180 1 Capsule(s) INH QD 06/26/2013 12/18/2013 Inactive INHALE CONTENTS OF 1 CAPSULE(S) WITH HANDIHALER ONCE DAILY Synthroid 112 mcg tablet RxNorm: 834812 1 Tablet(s) PO QD TAKE ONE TABLET BY MOUTH EVERY DAY 06/19/2013 02/15/2014 Inactive fluoxetine 20 mg capsule RxNorm: 235964 1 Capsule(s) PO QD 06/19/20 13 12/18/2013 Inactive Ventolin HFA 90 mcg/actuation Aerosol Inhaler RxNorm: 2314385 2 Puff(s) INH Q4H 06/05/2013 No Stop Date Active prn Soma 350 mg tablet RxNorm: 720463 1 Tablet(s) PO TID 06/05/201307/04 Inactive TAKE ONE TABLET BY MOUTH THREE TIMES A D AY prednisone 20 mg tablet RxNorm: 272019 1 Tablet(s) PO QD 05/31/2013 0 06/06/2013 Inactive Topamax 100 mg tablet RxNorm: 737282 1 Tablet(s) PO QHS 05/22/2013 Inactive Levaquin 500 mg tablet RxNorm: 622798 1 Tablet(s) PO QD 05/03/2013 Inactive Diflucan 100 mg tablet RxNorm: 939572 1 Tablet(s) PO QD 05/03/2013 Inactive Daliresp 500 mcg tablet RxNorm: 5925215 1 Tablet(s) PO QD 05/01/2013 07/24/2013 Inactive Daliresp 500 mcg tablet RxNorm: 1114506 1 Tablet(s) PO QD 05/01/2013 04/30/2013 Inactive gabapentin 800 mg tablet RxNorm: 650827 1 Tablet(s) PO QD 04/10/2013 10/06/2013 Inactive TAKE ONE TABLET BY MOUTH EVERY DAY metformin ER 500 mg tablet,extended release 24 hr RxNorm: 86 0977 1 Tablet(s) PO QD 04/10/2013 10/06/2013 Inactive TAKE ONE TABLET BY MOUTH EVERY DAY Premarin 0.9 mg tablet RxNorm: 938407 1 Tablet(s) PO QD 04/10/2013 Inactive TAKE ONE TABLET BY MOUTH EVERY DAY Symbicort 160 mcg-4.5 mcg/actuation HFA aerosol inhaler RxNo rm: 3434625 2 Puff(s) INH BID 04/10/2013 10/06/2013 Inactive INHALE 2 PUFFS O RALLY TWO TIMES A DAY Synthroid 112 mcg tablet RxNorm: 846004 1 Tablet(s) PO QD TAKE ONE TABLET BY MOUTH EVERY DAY 04/10/2013 06/18/2013 Inactive Ventolin HFA 90 mcg/actuation Aerosol Inhaler RxNorm: 605710 2 Puff(s) INH Q4H 04/10/2013 No Stop Date Active prn fentanyl 100 mcg/hr transdermal patch RxNorm: 466342 1 Unit Dos e TD QD 04/03/2013 05/02/2013 Inactive Endocet 10 mg-325 mg tablet RxNorm: 3670561 1-2 Tablet(s) PO Q4H 05/02/2013 Inactive PRN PAIN Topamax 100 mg tablet RxNorm: 339482 1 Tablet(s) PO QHS 03/13/2013 Inactive Reglan 10 mg tablet RxNorm: 937227 1 Tablet(s) PO QID b efore meals and at bedtime 03/13/2013 04/09/2015 Inactive fluoxetine 20 mg capsule RxNorm: 636762 1 Capsule(s) PO QD 02/28/20 13 05/27/2013 Inactive Ventolin HFA 90 mcg/actuation Aerosol Inhaler RxNorm: 744925 2 Puff(s) INH Q4H 02/13/2013 No Stop Date Active prn fluoxetine 40 mg capsule RxNorm: 702572 1 Capsule(s) PO QD 01/31/20 13 07/24/2013 Inactive TAKE ONE CAPSULE BY MOUTH EV JANKI MORNING Soma 350 mg tablet RxNorm: 177907 1 Tablet(s) PO TID 01/20/201302/18 Inactive TAKE ONE TABLET BY MOUTH THREE TIMES A D AY Endocet 10 mg-325 mg tablet RxNorm: 6790883 1-2 Tablet(s) PO Q4H 02/06/2013 Inactive PRN PAIN MS Contin 200 mg tablet,extended release RxNorm: 605846 1 Table t(s) PO BID 01/18/2013 02/06/2013 Inactive Ventolin HFA 90 mcg/actuation Aerosol Inhaler RxNorm: 122019 2 Puff(s) INH Q4H 01/04/2013 No Stop Date Active prn Spiriva with HandiHaler 18 mcg & inhalation capsules RxNorm: 952695 1 Capsule(s) INH QD 12/29/2012 06/25/2013 Inactive INHALE CONTENTS OF 1 CAPSULE(S) WITH HANDIHALER ONCE DAILY Spiriva with HandiHaler 18 mcg & inhalation capsules RxNorm: 902893 1 Capsule(s) INH QD 12/26/2012 12/28/2012 Inactive INHALE CONTENTS OF 1 CAPSULE(S) WITH HANDIHALER ONCE DAILY Synthroid 112 mcg tablet RxNorm: 801810 Tablet(s) PO TA KE ONE TABLET BY MOUTH EVERY DAY 12/26/2012 04/09/2013 Inactive Endocet 10 mg-325 mg tablet RxNorm: 7511169 1-2 Tablet(s) PO Q4H 01/17/2013 Inactive PRN PAIN MS Contin 200 mg tablet,extended release RxNorm: 232874 1 Table t(s) PO BID 12/21/2012 01/17/2013 Inactive fluoxetine 20 mg capsule RxNorm: 976033 1 Capsule(s) PO QD 12/06/19 13 02/26/2013 Inactive Synthroid 112 mcg tablet RxNorm: 759317 1 Tablet(s) PO QD 12/06/2012 02/12/2019 Inactive TAKE ONE TABLET BY MOUTH EVERY DAY Ventolin HFA 90 mcg/actuation Aerosol Inhaler RxNorm: 823604 2 Puff(s) INH Q4H 12/06/2012 No Stop Date Active prn Reglan 10 mg tablet RxNorm: 547470 1 Tablet(s) PO QID b efore meals and at bedtime 11/24/2012 03/12/2013 Inactive Topamax 100 mg tablet RxNorm: 810112 1 Tablet(s) PO QHS 11/16/2012 Inactive Ventolin HFA 90 mcg/actuation Aerosol Inhaler RxNorm: 730372 2 Puff(s) INH Q4H 11/09/2012 No Stop Date Active prn gabapentin 800 mg tablet RxNorm: 301667 1 Tablet(s) PO QD 10/27/2012 04/09/2013 Inactive TAKE ONE TABLET BY MOUTH EVERY DAY metformin ER 500 mg tablet,extended release 24 hr RxNorm: 86 0977 1 Tablet(s) PO QD 10/27/2012 04/09/2013 Inactive TAKE ONE TABLET BY MOUTH EVERY DAY Symbicort 160 mcg-4.5 mcg/actuation HFA Aerosol Inhaler RxNo rm: 1879609 2 Puff(s) INH BID 10/27/2012 04/09/2013 Inactive INHALE 2 PUFFS O RALLY TWO TIMES A DAY Premarin 0.9 mg tablet RxNorm: 192266 1 Tablet(s) PO QD 10/27/2012 Inactive TAKE ONE TABLET BY MOUTH EVERY DAY Endocet 10 mg-325 mg tablet RxNorm: 9296291 1-2 Tablet(s) PO Q4H 11/24/2012 Inactive PRN PAIN MS Contin 200 mg tablet,extended release RxNorm: 627032 1 Table t(s) PO BID 10/26/2012 11/24/2012 Inactive Soma 350 mg tablet RxNorm: 905354 1 Tablet(s) PO TID 10/04/201211/02 Inactive TAKE ONE TABLET BY MOUTH THREE TIMES A D AY Ventolin HFA 90 mcg/actuation Aerosol Inhaler RxNorm: 349696 2 Puff(s) INH Q4H 10/03/2012 No Stop Date Active prn Daliresp 500 mcg tablet RxNorm: 0698733 1 Tablet(s) PO QD 09/28/2012 09/27/2012 Inactive Daliresp 500 mcg tablet RxNorm: 8809870 1 Tablet(s) PO QD 09/28/2012 04/25/2013 Inactive fluoxetine 20 mg capsule RxNorm: 635247 1 Capsule(s) PO QD 09/05/20 12 12/06/2012 Inactive Topamax 50 mg tablet RxNorm: 592775 Tablet(s) PO for 1w k then 1 po q HS for 1wk then 2 po q HS 08/29/2012 09/27/2012 Inactive TAKE 1/2 TABLET BY MOUTH AT BEDTIME FOR 1 WEEK, THEN 1 TABLET AT BEDTIME FOR 1 WEEK, THEN 2 TABLETS AT BEDTIME Topamax 100 mg tablet RxNorm: 001749 1 Tablet(s) PO QHS 08/29/2012 Inactive Ventolin HFA 90 mcg/actuation Aerosol Inhaler RxNorm: 718322 2 Puff(s) INH Q4H 08/19/2012 No Stop Date Active prn Ventolin HFA 90 mcg/actuation Aerosol Inhaler RxNorm: 211889 2 Puff(s) INH Q4H 08/15/2012 No Stop Date Active prn Synthroid 112 mcg tablet RxNorm: 712992 1 Tablet(s) PO QD 08/10/2012 11/07/2012 Inactive TAKE ONE TABLET BY MOUTH EVERY DAY Synthroid 112 mcg tablet RxNorm: 220885 1 Tablet(s) PO QD 08/01/2012 08/09/2012 Inactive TAKE ONE TABLET BY MOUTH EVERY DAY Reglan 10 mg tablet RxNorm: 744089 1 Tablet(s) PO QID b efore meals and at bedtime 08/01/2012 11/23/2012 Inactive fluoxetine 40 mg capsule RxNorm: 222411 1 Capsule(s) PO QD 08/01/2001/27/2013 Inactive TAKE ONE CAPSULE BY MOUTH EV JANKI MORNING Ventolin HFA 90 mcg/actuation Aerosol Inhaler RxNorm: 861039 2 Puff(s) INH Q4H 08/01/2012 No Stop Date Active prn Soma 350 mg tablet RxNorm: 336491 1 Tablet(s) PO TID 07/20/201208/18 Inactive TAKE ONE TABLET BY MOUTH THREE TIMES A D AY Spiriva with HandiHaler 18 mcg & inhalation capsules RxNorm: 415543 1 Capsule(s) INH 07/01/2012 12/25/2012 Inactive INHALE CONTENTS OF 1 CAPSULE(S) WITH HANDIHALER ONCE DAILY Zithromax 250 mg Tab RxNorm: 141244 2 Tablet(s) PO QD 06/28/201206/22 Inactive MS Contin 200 mg tablet,extended release RxNorm: 859665 1 Table t(s) PO BID 06/28/2012 07/27/2012 Inactive Endocet 10 mg-325 mg tablet RxNorm: 0465547 1-2 Tablet(s) PO Q4H 07/27/2012 Inactive PRN PAIN Topamax 100 mg tablet RxNorm: 838868 1 Tablet(s) PO QHS 06/28/2012 Inactive 16.2 mg-0.1037 mg-0.0194 mg tablet RxNorm: 5865117 Tablet(s) PO PRN for gas and cramping 06/08/2012 08/23/2013 Inactive TAKE TWO TABLET S BY MOUTH THREE TIMES A DAY NEEDED FOR GAS AND CRAMPING Ventolin HFA 90 mcg/actuation Aerosol Inhaler RxNorm: 680090 2 Puff(s) INH Q4H 05/23/2012 No Stop Date Active prn Ventolin HFA 90 mcg/actuation Aerosol Inhaler RxNorm: 925208 2 Puff(s) INH Q4H 05/11/2012 No Stop Date Active prn Synthroid 112 mcg tablet RxNorm: 755475 1 Tablet(s) PO QD 05/09/2012 07/31/2012 Inactive TAKE ONE TABLET BY MOUTH EVERY DAY gabapentin 800 mg tablet RxNorm: 142944 1 Tablet(s) PO QD 05/09/2012 10/26/2012 Inactive TAKE ONE TABLET BY MOUTH EVERY DAY fluoxetine 40 mg capsule RxNorm: 778866 1 Capsule(s) PO QD 05/09/2007/31/2012 Inactive TAKE ONE CAPSULE BY MOUTH EV JANKI MORNING metformin ER 500 mg tablet,extended release 24 hr RxNorm: 86 0977 1 Tablet(s) PO QD 05/09/2012 10/26/2012 Inactive TAKE ONE TABLET BY MOUTH EVERY DAY Premarin 0.9 mg tablet RxNorm: 878136 1 Tablet(s) PO QD 05/09/2012 Inactive TAKE ONE TABLET BY MOUTH EVERY DAY Symbicort 160 mcg-4.5 mcg/actuation HFA Aerosol Inhaler RxNo rm: 9252115 2 Puff(s) INH BID 05/09/2012 10/26/2012 Inactive INHALE 2 PUFFS O RALLY TWO TIMES A DAY Endocet 10 mg-325 mg Tab RxNorm: 0959874 1-2 Tablet(s) PO Q4H 04/2705/26/2012 Inactive PRN PAIN MS Contin 200 mg Tab RxNorm: 645289 1 Tablet(s) PO BID 04/26/201202/2012 Inactive Ventolin HFA 90 mcg/actuation Aerosol Inhaler RxNorm: 240110 2 Puff(s) INH Q4H 04/25/2012 05/10/2012 Inactive prn Soma 350 mg tablet RxNorm: 952375 2 Tablet(s) PO TID 04/19/201207/19 Inactive TAKE ONE TABLET BY MOUTH THREE TIMES A D AY Ventolin HFA 90 mcg/actuation Aerosol Inhaler RxNorm: 003525 2 Puff(s) INH Q4H 04/12/2012 04/24/2012 Inactive prn Reglan 10 mg tablet RxNorm: 635538 1 Tablet(s) PO QID b efore meals and at bedtime 04/11/2012 07/31/2012 Inactive MS Contin 200 mg Tab RxNorm: 092418 1 Tablet(s) PO BID 03/30/201202/2012 Inactive Endocet 10 mg-325 mg Tab RxNorm: 4217442 1-2 Tablet(s) PO Q4H 03/3004/26/2012 Inactive PRN PAIN MS Contin 200 mg Tab RxNorm: 976391 1 Tablet(s) PO BID 03/02/201206/2012 Inactive Endocet 10 mg-325 mg Tab RxNorm: 9887283 1-2 Tablet(s) PO Q4H 03/0203/29/2012 Inactive PRN PAIN Daliresp 500 mcg tablet RxNorm: 2050507 1 Tablet(s) PO QD 03/01/2012 09/28/2012 Inactive MS Contin 200 mg Tab RxNorm: 677412 1 Tablet(s) PO BID 02/02/201208/2012 Inactive Endocet 10 mg-325 mg Tab RxNorm: 8424294 1-2 Tablet(s) PO Q4H 02/0103/01/2012 Inactive PRN PAIN fluoxetine 40 mg capsule RxNorm: 744092 1 Capsule(s) PO QD 02/02/2008/01/2012 Inactive TAKE ONE CAPSULE BY MOUTH EV JANKI MORNING Synthroid 112 mcg Tab RxNorm: 576667 1 Tablet(s) PO QD 01/18/2012 Inactive TAKE ONE TABLET BY MOUTH EVERY DAY lactulose 10 gram/15 mL oral solution RxNorm: 822050 [address]s) PO QD 01/18/2012 No Stop Date Active TAKE 1 TABLESPOON BY MOUTH ONCE DAILY Ventolin HFA 90 mcg/actuation Aerosol Inhaler RxNorm: 448647 2 Puff(s) INH Q4H 01/18/2012 04/11/2012 Inactive prn MS Contin 200 mg Tab RxNorm: 737441 1 Tablet(s) PO BID 01/05/201210/2012 Inactive Endocet 10 mg-325 mg Tab RxNorm: 8523240 1-2 Tablet(s) PO Q4H 01/0502/01/2012 Inactive PRN PAIN ProAir HFA 90 mcg/Actuation Aerosol Inhaler RxNorm: 253807 2 Pu ff(s) INH Q4H 12/21/2011 No Stop Date Active prn for wheezing or shortness of breath Spiriva with HandiHaler 18 mcg & inhalation Caps RxNorm: 580 261 1 Capsule(s) INH 12/21/2011 06/30/2012 Inactive INHALE CONTENTS OF 1 CAPSULE(S) WITH HANDIHALER ONCE DAILY Reglan 10 mg Tab RxNorm: 774114 1 Tablet(s) PO QID before meals and at bedtime 12/21/2011 04/10/2012 Inactive Synthroid 112 mcg Tab RxNorm: 478456 1 Tablet(s) PO QD 12/21/2011 Inactive TAKE ONE TABLET BY MOUTH EVERY DAY Endocet 10 mg-325 mg Tab RxNorm: 0339677 1-2 Tablet(s) PO Q4H 11/2512/24/2011 Inactive PRN PAIN MS Contin 200 mg Tab RxNorm: 058237 1 Tablet(s) PO BID 11/25/201112/2011 Inactive lactulose 10 gram/15 mL Oral Soln RxNorm: 223783 Milliliter(s) PO 1 No Stop Date Active TAKE 1 TABLESPOON BY MOUTH O NCE DAILY lactulose 10 gram/15 mL Oral Soln RxNorm: 967977 Milliliter(s) PO 1 12/12/2010 11/20/2011 Inactive TAKE 1 TABLESPOON BY MOUTH O NCE DAILY Premarin 0.9 mg Tab RxNorm: 415611 1 Tablet(s) PO QD 10/12/201105/08 Inactive TAKE ONE TABLET BY MOUTH EVERY DAY fluoxetine 20 mg capsule RxNorm: 882320 1 Capsule(s) PO QD 10/12/2009/05/2012 Inactive TAKE ONE CAPSULE BY MOUTH EV JANKI DAY Synthroid 112 mcg Tab RxNorm: 999089 1 Tablet(s) PO QD 10/12/2011 Inactive TAKE ONE TABLET BY MOUTH EVERY DAY metformin ER 500 mg 24 hr Tab RxNorm: 062165 1 Tablet(s) PO QD 09/2311/10/2011 Inactive TAKE ONE TABLET BY MOUTH GLYNN RY DAY Synthroid 112 mcg Tab RxNorm: 600159 1 Tablet(s) PO QD 10/12/2011 Inactive TAKE ONE TABLET BY MOUTH EVERY DAY metformin ER 500 mg 24 hr Tab RxNorm: 516492 1 Tablet(s) PO QD 09/2310/11/2011 Inactive TAKE ONE TABLET BY MOUTH GLYNN RY DAY Prevacid 30 mg Cap RxNorm: 050818 Capsule(s) PO 10/12/2011 01/25/2012 Inactive TAKE ONE CAPSULE BY MOUTH EVERY DAY Symbicort 160 mcg-4.5 mcg/actuation HFA Aerosol Inhaler RxNo rm: 8768016 2 Puff(s) INH BID 10/12/2011 05/08/2012 Inactive INHALE 2 PUFFS O RALLY TWO TIMES A DAY gabapentin 800 mg Tab RxNorm: 153308 1 Tablet(s) PO QD 10/12/2011 Inactive TAKE ONE TABLET BY MOUTH EVERY DAY MS Contin 200 mg Tab RxNorm: 170947 1 Tablet(s) PO BID 09/23/201111/2010 Inactive Endocet 10 mg-325 mg Tab RxNorm: 4375489 1-2 Tablet(s) PO Q4H 09/2310/22/2011 Inactive PRN PAIN Endocet 10 mg-325 mg Tab RxNorm: 7809785 1-2 Tablet(s) PO Q4H 08/2109/19/2011 Inactive PRN PAIN MS Contin 200 mg Tab RxNorm: 987708 1 Tablet(s) PO BID 08/21/2011 Inactive Diflucan 100 mg Tab RxNorm: 470421 1 Tablet(s) PO QD 08/10/201108/16 Inactive cefdinir 300 mg Cap RxNorm: 159461 2 Capsule(s) PO QD 08/10/201107/24 Inactive Reglan 10 mg Tab RxNorm: 948379 1 Tablet(s) PO AC & HS 07/15/2011 Inactive Endocet 10 mg-325 mg Tab RxNorm: 6851722 1-2 Tablet(s) PO Q4H 07/1508/13/2011 Inactive PRN PAIN One Touch Ultra Test strips RxNorm: Miscellaneous BID 06/11/2011 1 01/16/2014 Inactive TEST TWO TIMES A DAY lactulose 10 gram/15 mL Oral Soln RxNorm: 464249 Milliliter(s) PO 0 06/10/2011 10/11/2011 Inactive TAKE 1 TABLESPOON BY MOUTH O NCE DAILY Chantix Continuing Month Aníbal 1 mg Tab RxNorm: 775672 Tablet(s) PO 0 06/10/2011 11/02/2011 Inactive TAKE DIRECTED - PER PACK[employer] GE INSTRUCTIONS fluoxetine 40 mg Cap RxNorm: 929318 Capsule(s) PO 06/10/2011 02/02/20 Inactive TAKE ONE CAPSULE BY MOUTH EVERY MORNING Chantix Continuing Month Aníbal 1 mg Tab RxNorm: 823520 Ta blet(s) PO TAKE DIRECTED - PER PACKAGE INSTRUCTIONS 05/13/2011 06/09/2011 Inactive Soma 350 mg Tab RxNorm: 254191 Tablet(s) PO TAKE ON E TABLET BY MOUTH THREE TIMES A DAY 05/13/2011 04/18/2012 Inactive Chantix Continuing Month Aníbal 1 mg Tab RxNorm: 764317 Ta blet(s) PO as directed per package instructions. 04/22/2011 05/12/2011 Inactive Symbicort 160 mcg-4.5 mcg/Actuation HFA Aerosol Inhaler RxNo rm: 7777317 HFA Aerosol Inhaler INH INHALE 2 PUFFS ORALLY TWO TIMES A DAY 04/13/2011 Inactive Synthroid 112 mcg Tab RxNorm: 553623 Tablet(s) PO TAKE ONE TABLET BY MOUTH EVERY DAY 04/13/2011 10/12/2011 Inactive Premarin 0.9 mg Tab RxNorm: 338296 Tablet(s) PO TAKE ON E TABLET BY MOUTH EVERY DAY 04/13/2011 10/12/2011 Inactive gabapentin 800 mg Tab RxNorm: 865763 Tablet(s) PO TAKE ONE TABLET BY MOUTH EVERY DAY 04/13/2011 10/12/2011 Inactive Prevacid 30 mg Cap RxNorm: 978101 1 Capsule(s) PO QD 04/13/201110/11 Inactive Spiriva with HandiHaler 18 mcg & inhalation Caps RxNorm: 580 261 Capsule(s) INH INHALE CONTENTS OF 1 CAPSULE(S) WITH HANDIHALER ONCE DAILY 04/13/2011 12/21/2011 Inactive metformin ER 500 mg 24 hr Tab RxNorm: 798496 Tablet(s) PO TAKE ONE TABLET BY MOUTH EVERY DAY 04/13/2011 10/12/2011 Inactive Soma 350 mg Tab RxNorm: 380069 1 Tablet(s) PO QID 03/30/2011 02/13/20 19 Inactive fluoxetine 20 mg Cap RxNorm: 062048 Capsule(s) PO TAKE ONE CAPSULE BY MOUTH EVERY DAY 03/25/2011 10/12/2011 Inactive cefdinir 300 mg Cap RxNorm: 919613 2 Capsule(s) PO QD 03/19/201105/2011 Inactive 16.2 mg-0.1037 mg-0.0194 mg Tab RxNorm: 2648050 2 Tablet(s) PO TID PRN for gas and cramping 03/16/2011 07/13/2011 Inactive Soma 350 mg Tab RxNorm: 623951 2 Tablet(s) PO TID 03/16/2011 03/29/20 11 Inactive Chantix Starting Month Aníbal 0.5 mg (11)-1 mg (3x14) Tab s in a Dose Pack RxNorm: 366777 Tablet(s) PO as directed 03/02/2011 No Stop Date Active diazepam 10 mg Tab RxNorm: 624119 1 Tablet(s) PO BID 02/10/201101/19 Inactive Zofran 4 mg tablet RxNorm: 177532 1 Tablet(s) PO Q4H prn nausea 02/16/2011 Inactive Diflucan 100 mg Tab RxNorm: 353130 1 Tablet(s) PO QD 01/18/201101/24 Inactive Premarin 0.625 mg/g Vaginal Cream RxNorm: 557474 VAG In sert 1gm vaginally at bedtime 3 times weekly 01/18/2011 02/12/2019 Inactive loratadine 10 mg Tab RxNorm: 6085777 1 Tablet(s) PO QD 12/17/201003/2012 Inactive Spiriva with HandiHaler 18 mcg & inhalation Caps RxNorm: 580 261 1 Capsule(s) INH QD 12/17/2010 04/12/2011 Inactive Diflucan 100 mg Tab RxNorm: 754942 1 Tablet(s) PO QD 12/17/201012/23 Inactive diazepam 10 mg Tab RxNorm: 357665 1 Tablet(s) PO BID and PRN 201002/12/2019 Inactive One Touch Ultra Test Strips RxNorm: InVt BID Zainab t blood sugar at least twice daily. 11/11/2010 06/11/2011 Inactive fluoxetine 40 mg Cap RxNorm: 600993 1 Capsule(s) PO QAM 11/11/2010 Inactive diazepam 10 mg Tab RxNorm: 317196 1 Tablet(s) PO BID and PRN 200911/12/2010 Inactive Bactrim DS 800 mg-160 mg Tab RxNorm: 961109 1 Tablet(s) PO BID 09/2210/15/2010 Inactive fluoxetine 20 mg Cap RxNorm: 641782 1 Capsule(s) PO QD 10/02/201008/2011 Inactive Bactrim DS 800 mg-160 mg Tab RxNorm: 968368 1 Tablet(s) PO BID 01/201010/03/2010 Inactive Zofran 4 mg Tab RxNorm: 567178 1 Tablet(s) PO Q4H prn nausea 200910/16/2010 Inactive 16.2 mg-0.1037 mg-0.0194 mg Tab RxNorm: 5363016 2 Tablet(s) PO TID PRN for gas and cramping 09/17/2010 10/21/2010 Inactive Gabapentin 800 mg Tab RxNorm: 004123 1 Tablet(s) PO QD 09/16/2010 Inactive ProAir HFA 90 mcg/Actuation Aerosol Inhaler RxNorm: 385617 2 Puff(s) INH Q4H prn shortness of breath 09/15/2010 12/13/2010 Inactive gabapentin 800 mg Tab RxNorm: 065115 1 Tablet(s) PO QD 09/15/2010 Inactive Prevacid 30 mg Cap RxNorm: 486674 1 Capsule(s) PO QD 09/15/201004/12 Inactive loratadine 10 mg Tab RxNorm: 7679627 1 Tablet(s) PO QD 09/15/2010 Inactive Premarin 0.9 mg Tab RxNorm: 012257 1 Tablet(s) PO QD 09/15/201004/12 Inactive Synthroid 112 mcg Tab RxNorm: 151598 1 Tablet(s) PO QD 09/15/2010 Inactive metformin ER 500 mg 24 hr Tab RxNorm: 689591 1 Tablet(s) PO QD 08/2304/12/2011 Inactive Symbicort 160 mcg-4.5 mcg/Actuation Inhalation HFA Aer osol Inhaler RxNorm: 7281017 2 Puff(s) INH BID 09/15/2010 04/12/2011 Inactive diazepam 10 mg Tab RxNorm: 054163 1 Tablet(s) PO BID and PRN 200910/13/2010 Inactive Phentermine 37.5 mg Cap RxNorm: 017615 1 Capsule(s) PO QD 09/02/2010 11/02/2011 Inactive ProAir HFA 90 mcg/Actuation Aerosol Inhaler RxNorm: 125512 2 Puff(s) INH Q4H prn shortness of breath 08/07/2010 No Stop Date Active Premarin 0.9 mg Tab RxNorm: 813742 1 Tablet(s) PO QD 08/07/201009/14 Inactive Loratadine 10 mg Tab RxNorm: 2468988 1 Tablet(s) PO QD 08/07/2010 Inactive Lactulose 10 gram/15 mL Oral Soln RxNorm: 208809 1 Unit Dose PO QD 08/07/2010 02/12/2019 Inactive Zofran 4 mg Tab RxNorm: 148108 1 Tablet(s) PO Q4H prn nausea 2009 No Stop Date Active Gabapentin 800 mg Tab RxNorm: 004508 1 Tablet(s) PO QD 08/07/2010 Inactive Synthroid 112 mcg Tab RxNorm: 187763 1 Tablet(s) PO QD 08/07/2010 Inactive Metformin ER 500 mg 24 hr Tab RxNorm: 218321 1 Tablet(s) PO QD 07/2309/14/2010 Inactive Vitamin D 1,000 unit Tab RxNorm: 917518 1 Tablet(s) PO TID 08/07/2002/12/2019 Inactive Symbicort 160 mcg-4.5 mcg/Actuation Inhalation HFA Aer osol Inhaler RxNorm: 2363312 2 Puff(s) INH BID 08/07/2010 09/14/2010 Inactive Prevacid 30 mg Cap RxNorm: 493010 1 Capsule(s) PO QD 08/07/201009/14 Inactive Metformin ER 500 mg 24 hr Tab RxNorm: 996781 1 Tablet(s) PO QD 06/2308/06/2010 Inactive Vitamin D 1,000 unit Tab RxNorm: 868502 1 Tablet(s) PO TID 07/14/2008/06/2010 Inactive Synthroid 112 mcg Tab RxNorm: 908861 1 Tablet(s) PO QD 07/14/2010 Inactive Lactulose 10 gram/15 mL Oral Soln RxNorm: 594757 1 Unit Dose PO QD 07/14/2010 08/06/2010 Inactive Levaquin 500 mg Tab RxNorm: 347138 1 Tablet(s) PO QD 07/14/201007/27 Inactive Premarin 0.9 mg Tab RxNorm: 697020 1 Tablet(s) PO QD 07/14/201008/06 Inactive ProAir HFA 90 mcg/Actuation Aerosol Inhaler RxNorm: 454053 2 Puff(s) INH Q4H prn shortness of breath 07/14/2010 No Stop Date Active Prevacid 30 mg Cap RxNorm: 657457 1 Capsule(s) PO QD 07/14/201008/06 Inactive Zofran 4 mg Tab RxNorm: 975452 1 Tablet(s) PO Q4H prn nausea 2009 No Stop Date Active Symbicort 160 mcg-4.5 mcg/Actuation Inhalation HFA Aer osol Inhaler RxNorm: 2027338 2 Puff(s) INH BID 07/14/2010 08/06/2010 Inactive Loratadine 10 mg Tab RxNorm: 4122885 1 Tablet(s) PO QD 07/14/2010 Inactive Gabapentin 800 mg Tab RxNorm: 015722 1 Tablet(s) PO QD 07/14/2010 Inactive Metformin ER 500 mg 24 hr Tab RxNorm: 665138 1 Tablet(s) PO 010 07/13/2010 Inactive Diazepam 10 mg Tab RxNorm: 124196 1 Tablet(s) PO BID and PRN 200909/06/2010 Inactive Premarin 0.9 mg Tab RxNorm: 953106 1 Tablet(s) PO QD 06/09/201007/13 Inactive Zofran 4 mg Tab RxNorm: 244363 1 Tablet(s) PO Q4H prn nausea 2009 No Stop Date Active ProAir HFA 90 mcg/Actuation Aerosol Inhaler RxNorm: 564440 2 Puff(s) INH Q4H prn shortness of breath 06/09/2010 No Stop Date Active Gabapentin 800 mg Tab RxNorm: 817152 1 Tablet(s) PO QD 06/09/2010 Inactive Loratadine 10 mg Tab RxNorm: 2787573 1 Tablet(s) PO QD 06/09/2010 Inactive Lactulose 10 gram/15 mL Oral Soln RxNorm: 354108 1 Unit Dose PO QD 06/09/2010 07/13/2010 Inactive Prevacid 30 mg Cap RxNorm: 431804 1 Capsule(s) PO QD 06/09/201007/13 Inactive Synthroid 112 mcg Tab RxNorm: 488394 1 Tablet(s) PO QD 06/09/2010 Inactive Symbicort 160 mcg-4.5 mcg/Actuation Inhalation HFA Aer osol Inhaler RxNorm: 3957397 2 Puff(s) INH BID 06/09/2010 07/13/2010 Inactive Omnicef 300 mg Cap RxNorm: 971265 2 Capsule(s) PO QD 05/07/201005/20 Inactive Metformin 500 mg Tab RxNorm: 724594 1 Tablet(s) PO QD 05/06/201005/22 Inactive ProAir HFA 90 mcg/Actuation Aerosol Inhaler RxNorm: 410865 2 Puff(s) INH Q4H prn shortness of breath 05/06/2010 No Stop Date Active lactulose 10 gram/15 mL Oral Soln RxNorm: 053285 1 Unit Dose PO QD 05/06/2010 06/10/2011 Inactive Loratadine 10 mg Tab RxNorm: 3645408 1 Tablet(s) PO QD 05/06/2010 Inactive Synthroid 112 mcg Tab RxNorm: 074504 1 Tablet(s) PO QD 05/06/2010 Inactive Symbicort 160 mcg-4.5 mcg/Actuation Inhalation HFA Aer osol Inhaler RxNorm: 1204215 2 Puff(s) INH BID 05/06/2010 06/08/2010 Inactive Gabapentin 800 mg Tab RxNorm: 236694 1 Tablet(s) PO QD 05/06/2010 Inactive 16.2 mg-0.1037 mg-0.0194 mg Tab RxNorm: 0905936 2 Tablet(s) PO TID PRN for gas and cramping 05/06/2010 05/12/2010 Inactive Zofran 4 mg Tab RxNorm: 698310 1 Tablet(s) PO Q4H prn nausea 200904/13/2010 Inactive MS Contin 60 mg Tab RxNorm: 662989 3 Tablet(s) PO BID 04/09/201004/22 Inactive Soma 350 mg Tab RxNorm: 134586 2 Tablet(s) PO TID 04/09/2010 05/08/20 10 Inactive Symbicort 160 mcg-4.5 mcg/Actuation Inhalation HFA Aer osol Inhaler RxNorm: 5035071 2 Puff(s) INH BID 04/08/2010 05/05/2010 Inactive Doxycycline 100 mg Cap RxNorm: 5427582 1 Capsule(s) PO BID 04/08/20 10 04/17/2010 Inactive Triamterene-Hydrochlorothiazide 37.5 mg-25 mg Cap RxNorm: 19 8316 1 Capsule(s) PO QAM 04/08/2010 09/04/2010 Inactive fluoxetine 40 mg Cap RxNorm: 675188 1 Capsule(s) PO QAM 04/08/2010 Inactive Morphine SR 120 mg multiphase 24 hr Cap RxNorm: 437537 1 Capsul e(s) PO 03/11/2010 04/07/2010 Inactive Endocet 10 mg-325 mg Tab RxNorm: 5333366 1-2 Tablet(s) PO Q4H [place] N PAIN 03/11/2010 04/09/2010 Inactive Savella 100 mg Tab RxNorm: 744678 1 Tablet(s) PO BID 03/10/201004/09 Inactive Soma 350 mg Tab RxNorm: 538049 1 Tablet(s) PO TID prn spasm 010 04/09/2010 Inactive Savella 100 mg Tab RxNorm: 125755 1 Tablet(s) PO BID 02/03/201004/09 Inactive Aspirin 81 mg Tab RxNorm: 986595 1 Tablet(s) PO QD No Start Date Active Zyrtec 10 mg Tab RxNorm: 5099205 1 Tablet(s) PO QD No Start Date Active One Touch Ultra Test Strips RxNorm: Misc test at least t wice daily. No Start Date Active coenzyme Q10 200 mg capsule RxNorm: 871417 1 Capsule(s) PO QD No Star t Date Active One Touch Ultra Test Strips RxNorm: InVt BID Zainab t blood sugar at least twice daily. No Start Date 11/10/2010 Inactive Gabapentin 800 mg Tab RxNorm: 426245 1 Tablet(s) PO QD No Start Date 05/05/2010 Inactive Abilify 5 mg tablet RxNorm: 733060 1 Tablet(s) PO QD No Start Date Inactive Chantix 1 mg Tab RxNorm: 398067 1 Tablet(s) PO BID No Start Date 10/22 Inactive Ozempic 0.25 mg or 0.5 mg (2 mg/1.5 mL) subcutaneous p en injector RxNorm: 1118924 .25 Milligram(s) SQ QW No Start Date 07/04/2019 Inactive lancets 28 gauge RxNorm: Miscellaneous As needed for blo od glucose sticks No Start Date 08/23/2013 Inactive potassium chloride ER 20 mEq tablet,extended release RxNorm: 403141 2 Tablet(s) PO QD No Start Date 09/26/2018 Inactive Ventolin HFA 90 mcg/actuation Aerosol Inhaler RxNorm: 421567 2 Puff(s) INH Q4H prn No Start Date 01/17/2012 Inactive potassium chloride ER 20 mEq tablet,extended release RxNorm: 677652 2 Tablet(s) PO QD No Start Date 10/19/2018 Inactive Januvia 100 mg tablet RxNorm: 884882 1 Tablet(s) PO QD No Start Date 09/10/2015 Inactive Medrol (Aníbal) 4 mg Tabs in a Dose Pack RxNorm: 163318 Tablet(s) PO N o Start Date 08/09/2011 Inactive as directed Zithromax Z-Naíbal 250 mg Tab RxNorm: 983452 Tablet(s) PO No Start Date 01/25/2012 Inactive as directed vitamin B6-vitamin E-magnesium tablet RxNorm: 1 Tablet(s ) PO QHS with INH No Start Date 03/30/2018 Inactive prednisone 20 mg Tab RxNorm: 827592 1 Tablet(s) PO TID for 1wk then 1 po BID for 1wk No Start Date 01/25/2012 Inactive furosemide 40 mg tablet RxNorm: 712116 1 Tablet(s) PO QAM No Start Date 10/09/2018 Inactive Vitamin D3 1000 units Capsule RxNorm: 1 Capsule(s) PO TID No S tart Date 03/19/2015 Inactive Zofran 4 mg Tab RxNorm: 557048 1 Tablet(s) PO Q4H prn nausea No Sta rt Date 04/13/2010 Inactive Premarin 0.625 mg/g Vaginal Cream RxNorm: 361395 1 Gram (s) VAG QHS 3 times a week No Start Date 09/22/2017 Inactive oxycodone 10 mg tablet RxNorm: 6556251 1-2 Tablet(s) PO QID as n eeded for pain No Start Date 11/04/2015 Inactive Nicoderm CQ 21 mg/24 hr daily Patch RxNorm: 100196 1 Applicatio n TD QD No Start Date 08/05/2015 Inactive Topamax 50 mg tablet RxNorm: 477260 1/2 Tablet(s) PO QH S for 1wk then 1 po q HS for 1wk then 2 po q HS No Start Date 06/27/2012 Inactive Chantix Starting Month Aníbal 0.5 mg (11)-1 mg (3x14) Tab s in a Dose Pack RxNorm: 973254 Tablet(s) PO as directed No Start Date 03/01/2011 Inactive Trulicity 0.75 mg/0.5 mL subcutaneous pen injector RxNorm: 1 699151 Milliliter(s) SQ No Start Date 07/04/2019 Inactive Medrol (Aníbal) 4 mg Tabs in a Dose Pack RxNorm: 165937 Tablet(s) PO N o Start Date 01/25/2012 Inactive as directed Duragesic 100 mcg/hr Transderm Patch RxNorm: 038959 2 A pplication TD Q48H for pain No Start Date 09/05/2013 Inactive Premarin 0.9 mg Tab RxNorm: 631943 1 Tablet(s) PO QD No Start Date Inactive Zithromax Z-Aníbal 250 mg Tab RxNorm: 122355 Tablet(s) PO as direc chinmay No Start Date 01/25/2012 Inactive ondansetron 8 mg disintegrating tablet RxNorm: 932804 1 Tablet(s) PO Q6H as needed No Start Date 10/10/2018 Inactive oxycodone 15 mg tablet RxNorm: 3882107 1 Tablet(s) PO QID as nee ded for pain No Start Date 03/05/2019 Inactive ProAir HFA 90 mcg/Actuation Aerosol Inhaler RxNorm: 207843 2 Puff(s) INH Q4H prn for wheezing or shortness of breath No Start Date 12/21/2011 Inactive pravastatin 40 mg tablet RxNorm: 238338 1/2 Tablet(s) PO QOD No Sta rt Date 04/09/2015 Inactive ipratropium-albuterol 0.5 mg-3 mg(2.5 mg base)/3 mL ne bulization soln RxNorm: 4990498 1 Unit Dose INH Q4H as needed No Start Date 09/09/2016 Inactive furosemide 40 mg tablet RxNorm: 697763 1 Tablet(s) PO QAM as ne eded No Start Date 09/24/2019 Inactive Vitamin D2 oral RxNorm: 4018 oral No Start Date 03/18/2015 Inacti ve pravastatin 40 mg tablet RxNorm: 673864 1/2 Tablet(s) PO QD No Star t Date 04/09/2015 Inactive ondansetron HCl 4 mg tablet RxNorm: 025765 1 Tablet(s) PO Q4H as needed for nausea and vomiting No Start Date 04/07/2016 Inactive furosemide 40 mg tablet RxNorm: 764736 2 Tablet(s) PO QAM No Start Date 09/26/2018 Inactive gabapentin 800 mg tablet RxNorm: 586340 1/2 Tablet(s) PO BID No Sta rt Date 06/21/2017 Inactive gabapentin 800 mg tablet RxNorm: 797032 1/2 Tablet(s) PO BID No Sta rt Date 07/05/2017 Inactive ProAir HFA 90 mcg/Actuation Aerosol Inhaler RxNorm: 468258 2 Puff(s) INH Q4H prn shortness of breath No Start Date 05/05/2010 Inactive scopolamine 1 mg over 3 days transdermal patch RxNorm: 80413 2 1 Application TD behind ear. Take off after three days No Start Date 10/10/2018 Inactive Metformin 500 mg Tab RxNorm: 638324 1 Tablet(s) PO QD No Start Date 0 05/05/2010 Inactive MS Contin 200 mg Tab RxNorm: 793578 1 Tablet(s) PO BID No Start Date 08/20/2011 Inactive Belladonna-Phenobarbital 48 mg tablet,extended release RxNor m: 2 Tablet(s) PO TID No Start Date 06/04/2016 Inactive Synthroid 112 mcg Tab RxNorm: 878696 1 Tablet(s) PO QD No Start Date 05/05/2010 Inactive Zegerid 40 mg-1.1 gram Cap RxNorm: 074354 1 Capsule(s) PO QD No Sta rt Date 01/25/2012 Inactive Premarin 0.625 mg/g Vaginal Cream RxNorm: 421583 VAG In sert 1gm vaginally at bedtime 3 times weekly No Start Date 01/17/2011 Inactive potassium chloride ER 20 mEq tablet,extended release RxNorm: 167626 1 Tablet(s) PO QD No Start Date 04/24/2019 Inactive methocarbamol 750 mg tablet RxNorm: 193385 2 Tablet(s) PO TID as needed for muscle spasm No Start Date 07/08/2014 Inactive Biaxin XL Aníbal 500 mg 24 hr Tab RxNorm: 969739 Tablet(s) PO as d irected No Start Date 04/24/2013 Inactive Vitamin D3 1,000 unit tablet RxNorm: 314109 3 Tablet(s) PO QD No St art Date 06/01/2017 Inactive Morphine SR 120 mg multiphase 24 hr Cap RxNorm: 014873 1 Capsul e(s) PO BID No Start Date 04/09/2010 Inactive Silvadene 1 % topical cream RxNorm: 047756 1 Application TOP BI D to burn area No Start Date 01/31/2017 Inactive Prednisone 20 mg Tab RxNorm: 923165 1 Tablet(s) PO TID for 3days then BID for 4days No Start Date 01/25/2012 Inactive gabapentin 600 mg tablet RxNorm: 959039 1 Tablet(s) PO BID No Start Date 01/21/2015 Inactive topiramate 50 mg tablet RxNorm: 997111 1 Tablet(s) PO QHS No Start Date 03/30/2018 Inactive Januvia 100 mg tablet RxNorm: 478971 1/2 Tablet(s) PO QD No Start D ate 12/25/2015 Inactive Diazepam 10 mg Tab RxNorm: 283483 1 Tablet(s) PO BID and PRN No Sta rt Date 06/08/2010 Inactive Medication Administered No Medication Administered data Immunizations Vaccine Codes Date Status Influenza CVX: 141 09/28/2012 Pneumovax Unknown 09/28/2012 Influenza (Adult) CVX: 141 09/02/2010 Results No Results data Procedures Procedure Codes Date THER/PROPH/DIAG INJ SC/IM CPT-4: 25613 07/10/2019 METHYLPREDNISOLONE INJECTION CPT-4: J2930 07/10/2019 URINALYSIS NONAUTO W/O SCOPE CPT-4: 52493 09/06/2018 URINE CULTURE/ COLONY COUNT CPT-4: 84495 09/06/2018 DRAIN/INJECT JOINT/BURSA CPT-4: 68041 04/29/2017 TRIAMCINOLONE ACET INJ NOS CPT-4: J3301 04/29/2017 DEXAMETHASONE SODIUM PHOS CPT-4: J1100 04/29/2017 INFLUENZA ASSAY W/OPTIC CPT-4: 55294 12/01/2016 RESPIRATORY CULTURE & STAIN CPT-4: 57061 07/09/2016 TB INTRADERMAL TEST CPT-4: 57783 04/21/2016 DRAIN/INJECT JOINT/BURSA CPT-4: 00480 11/07/2013 METHYLPREDNISOLONE 40 MG INJ CPT-4: J1030 11/07/2013 TRIAMCINOLONE ACET INJ NOS CPT-4: J3301 11/07/2013 DRAIN/INJECT JOINT/BURSA CPT-4: 38365 08/08/2013 METHYLPREDNISOLONE 40 MG INJ CPT-4: J1030 08/08/2013 TRIAMCINOLONE ACET INJ NOS CPT-4: J3301 08/08/2013 FLU VACCINE 3 YRS & > IM UP 64 CPT-4: 88006 2 PNEUMOCOCCAL VACC 23 ADITYA IM CPT-4: 46862 09/28/2012 IMMUNIZATION ADMIN CPT-4: 47521 09/28/2012 IMMUNIZATION ADMIN EACH ADD CPT-4: 06857 09/28/2012 FLU VACCINE 3 YRS & > IM UP 64 CPT-4: 57745 0 IMMUNIZATION ADMIN CPT-4: 96905 09/02/2010 METHYLPREDNISOLONE INJECTION CPT-4: J2930 05/07/2010 THER/PROPH/DIAG INJ SC/IM CPT-4: 98628 05/07/2010 Vital Signs Date Vital 11/29/2019 Blood [...] 1: 122/78 Code: 8480-6 BMI: 29.5 Code: 25857-6 Heart Rate 1: 76 bpm Height: 5'4" Respiratory Rate: 20 bpm SpO2: 96% Tempera ture: 37.0 (C) / 98.6 (F) Weight: 172 lbs 01/25/2019 Blood Pressure 1: 132/80 Code: 8480-6 BMI: 29.7 Code: 35338-9 Heart Rate 1: 84 bpm Height: 5'4" Respiratory Rate: 22 bpm SpO2: 98% Tempera ture: 36.9 (C) / 98.4 (F) Weight: 173 lbs 01/03/2019 Blood Pressure 1: 116/70 Code: 8480-6 BMI: 29.5 Code: 20266-1 Heart Rate 1: 92 bpm Height: 5'4" Respiratory Rate: 24 bpm SpO2: 98% Tempera ture: 37.2 (C) / 98.9 (F) Weight: 172 lbs 11/21/2018 Blood Pressure 1: 146/82 Code: 8480-6 BMI: 28.2 Code: 32956-9 Heart Rate 1: 88 bpm Height: 5'4" Respiratory Rate: 22 bpm SpO2: 97% Tempera ture: 36.9 (C) / 98.4 (F) Weight: 164 lbs 10/27/2018 Blood Pressure 1: 122/70 Code: 8480-6 BMI: 27.6 Code: 11457-8 Heart Rate 1: 88 bpm Height: 5'4" Respiratory Rate: 20 bpm SpO2: 96% Tempera ture: 36.8 (C) / 98.3 (F) Weight: 161 lbs 10/18/2018 Blood Pressure 1: 126/70 Code: 8480-6 BMI: 28.3 Code: 10925-2 Heart Rate 1: 76 bpm Height: 5'4" Respiratory Rate: 20 bpm SpO2: 95% Tempera ture: 37.0 (C) / 98.6 (F) Weight: 165 lbs 09/27/2018 Blood Pressure 1: 124/78 Code: 8480-6 BMI: 27.1 Code: 70340-5 Heart Rate 1: 88 bpm Height: 5'4" Respiratory Rate: 20 bpm SpO2: 98% Tempera ture: 36.4 (C) / 97.6 (F) Weight: 158 lbs 09/14/2018 Blood Pressure 1: 140/72 Code: 8480-6 BMI: 26.1 Code: 20600-0 Heart Rate 1: 100 bpm Height: 5'4" Respiratory Rate: 20 bpm SpO2: 97% Tempera ture: 36.9 (C) / 98.4 (F) Weight: 152 lbs 09/06/2018 Blood Pressure 1: 156/82 Code: 8480-6 BMI: 26.3 Code: 11791-5 Heart Rate 1: 100 bpm Height: 5'4" Respiratory Rate: 28 bpm SpO2: 95% Tempera ture: 37.2 (C) / 98.9 (F) Weight: 153 lbs 08/16/2018 Blood Pressure 1: 130/78 Code: 8480-6 Heart Rate 1: 87 bpm Respiratory Rate: 24 bpm SpO2: 94% Temperature: 36.9 (C) / 98.4 (F) We ight: 147 lbs 8 oz 07/07/2018 Blood Pressure 1: 116/78 Code: 8480-6 BMI: 22.7 Code: 76903-8 Heart Rate 1: 88 bpm Height: 5'4" Respiratory Rate: 22 bpm SpO2: 98% Tempera ture: 36.5 (C) / 97.7 (F) Weight: 132 lbs 05/31/2018 Blood Pressure 1: 128/78 Code: 8480-6 BMI: 22.3 Code: 53448-7 Heart Rate 1: 92 bpm Height: 5'4" Respiratory Rate: 26 bpm SpO2: 94% Tempera ture: 36.7 (C) / 98.1 (F) Weight: 130 lbs 03/31/2018 Blood Pressure 1: 136/78 Code: 8480-6 BMI: 21.5 Code: 24166-2 Heart Rate 1: 76 bpm Height: 5'4" Respiratory Rate: 24 bpm SpO2: 95% Tempera ture: 36.8 (C) / 98.3 (F) Weight: 125 lbs 01/26/2018 Blood Pressure 1: 142/64 Code: 8480-6 BMI: 20.6 Code: 11537-2 Heart Rate 1: 90 bpm Height: 5'4" Respiratory Rate: 24 bpm SpO2: 92% Tempera ture: 36.3 (C) / 97.3 (F) Weight: 120 lbs 10/26/2017 Blood Pressure 1: 124/70 Code: 8480-6 BMI: 20.3 Code: 40860-4 Heart Rate 1: 76 bpm Height: 5'4" Respiratory Rate: 22 bpm SpO2: 94% Tempera ture: 36.7 (C) / 98.1 (F) Weight: 118 lbs 09/23/2017 Blood Pressure 1: 106/70 Code: 8480-6 BMI: 19.2 Code: 68910-6 Heart Rate 1: 76 bpm Height: 5'4" Respiratory Rate: 20 bpm SpO2: 94% Tempera ture: 36.8 (C) / 98.3 (F) Weight: 112 lbs 08/12/2017 Blood Pressure 1: 116/68 Code: 8480-6 BMI: 20.1 Code: 73293-6 Heart Rate 1: 80 bpm Height: 5'4" Respiratory Rate: 22 bpm SpO2: 95% Tempera ture: 36.8 (C) / 98.2 (F) Weight: 117 lbs 07/06/2017 Blood Pressure 1: 136/78 Code: 8480-6 BMI: 20.6 Code: 54755-7 Heart Rate 1: 76 bpm Height: 5'4" Respiratory Rate: 24 bpm SpO2: 96% Tempera ture: 36.8 (C) / 98.2 (F) Weight: 120 lbs 06/02/2017 Blood Pressure 1: 112/70 Code: 8480-6 Heart Rate 1: 92 bpm Height: 5'4" Respiratory Rate: 24 bpm SpO2: 95% Temperature: 37.0 (C) / 98.6 (F) Weight: 04/29/2017 Blood Pressure 1: 94/52 Code: 8480-6 BMI: 19.6 C ode: 11929-8 Heart Rate 1: 84 bpm Height: 5'4" [...] 92/58 Code: 8480-6 BMI: 19.2 C ode: 31664-6 Heart Rate 1: 84 bpm Height: 5'4" Respiratory Rate: 26 bpm SpO2: 95% Tempera ture: 36.7 (C) / 98.0 (F) Weight: 112 lbs 12/01/2016 Blood Pressure 1: 114/70 Code: 8480-6 BMI: 19.2 Code: 00736-3 Heart Rate 1: 96 bpm Height: 5'4" Respiratory Rate: 28 bpm SpO2: 93% Tempera ture: 38.3 (C) / 101.0 (F) Weight: 112 lbs 10/27/2016 Blood Pressure 1: 126/66 Code: 8480-6 BMI: 19.6 Code: 93676-6 Heart Rate 1: 92 bpm Height: 5'4" Respiratory Rate: 28 bpm SpO2: 90% Tempera ture: 36.8 (C) / 98.3 (F) Weight: 114 lbs 09/09/2016 Blood Pressure 1: 126/74 Code: 8480-6 Heart Rate 1: 104 bpm Height: 5'4" Respiratory Rate: 32 bpm SpO2: 88% Temperature: 37 .2 (C) / 99.0 (F) 08/26/2016 Blood Pressure 1: 134/82 Code: 8480-6 BMI: 22.0 Code: 73735-9 Heart Rate 1: 84 bpm Height: 5'4" Respiratory Rate: 24 bpm SpO2: 94% Tempera ture: 36.8 (C) / 98.3 (F) Weight: 128 lbs 05/21/2016 Blood Pressure 1: 142/80 Code: 8480-6 BMI: 21.6 Code: 63655-9 Heart Rate 1: 104 bpm Height: 5'4" Respiratory Rate: 22 bpm SpO2: 93% Tempera ture: 36.0 (C) / 96.8 (F) Weight: 126 lbs 03/25/2016 Blood Pressure 1: 126/62 Code: 8480-6 Heart Rate 1: 88 bpm Respiratory Rate: 20 bpm SpO2: 92% Temperature: 36.8 (C) / 98.3 (F) We ight: 130 lbs 01/23/2016 Blood Pressure 1: 146/82 Code: 8480-6 BMI: 24.1 Code: 34262-7 Heart Rate 1: 92 bpm Height: 5'3" Respiratory Rate: 22 bpm Temperature: 37 .1 (C) / 98.8 (F) Weight: 136 lbs 12/26/2015 Blood Pressure 1: 142/78 Code: 8480-6 BMI: 24.6 Code: 50731-0 Heart Rate 1: 78 bpm Height: 5'3" Respiratory Rate: 20 bpm Temperature: 36 .7 (C) / 98.1 (F) Weight: 139 lbs 12/03/2015 Blood Pressure 1: 126/60 Code: 8480-6 BMI: 24.6 Code: 15915-5 Heart Rate 1: 100 bpm Height: 5'3" Respiratory Rate: 28 bpm Temperature: 37 .6 (C) / 99.6 (F) Weight: 139 lbs 09/10/2015 Blood Pressure 1: 124/64 Code: 8480-6 BMI: 23.7 Code: 87155-7 Heart Rate 1: 88 bpm Height: 5'3" Respiratory Rate: 24 bpm SpO2: 95% Tempera ture: 36.4 (C) / 97.6 (F) Weight: 134 lbs 08/06/2015 Blood Pressure 1: 114/76 Code: 8480-6 BMI: 23.2 Code: 08495-4 Heart Rate 1: 88 bpm Height: 5'3" Respiratory Rate: 22 bpm Temperature: 36 .6 (C) / 97.9 (F) Weight: 131 lbs 07/18/2015 Blood Pressure 1: 144/78 Code: 8480-6 BMI: 23.7 Code: 31709-2 Heart Rate 1: 84 bpm Height: 5'3" Respiratory Rate: 20 bpm Temperature: 37 .2 (C) / 99.0 (F) Weight: 134 lbs 04/10/2015 Blood Pressure 1: 110/64 Code: 8480-6 Heart Rate 1: 80 bpm Height: Respiratory Rate: 20 bpm Temperature: 37.1 (C) / 98.8 (F) Weight: 03/05/2015 Blood Pressure 1: 136/80 Code: 8480-6 BMI: 23.9 Code: 04980-6 Heart Rate 1: 76 bpm Height: 5'3" Respiratory Rate: 24 bpm Temperature: 37 .0 (C) / 98.6 (F) Weight: 135 lbs 01/30/2015 Blood Pressure 1: 142/80 Code: 8480-6 BMI: 23.0 Code: 73104-2 Heart Rate 1: 96 bpm Height: 5'3" Respiratory Rate: 22 bpm Temperature: 36 .2 (C) / 97.2 (F) Weight: 130 lbs 01/02/2015 Blood Pressure 1: 124/70 Code: 8480-6 BMI: 23.4 Code: 67564-1 Heart Rate 1: 84 bpm Height: 5'3" Respiratory Rate: 24 bpm SpO2: 95% Tempera ture: 36.9 (C) / 98.5 (F) Weight: 132 lbs 10/03/2014 Blood Pressure 1: 106/68 Code: 8480-6 BMI: 22.5 Code: 50072-3 Heart Rate 1: 88 bpm Height: 5'3" Respiratory Rate: 24 bpm Temperature: 37 .0 (C) / 98.6 (F) Weight: 127 lbs 08/27/2014 Blood Pressure 1: 124/68 Code: 8480-6 BMI: 21.1 Code: 05962-4 Heart Rate 1: 88 bpm Height: 5'3" [...] 1: 120/70 Code: 8480-6 BMI: 19.2 Code: 11106-5 Heart Rate 1: 70 bpm Height: 5'4" Respiratory Rate: 20 bpm Temperature: 36 .9 (C) / 98.4 (F) Weight: 112 lbs 06/28/2013 Blood Pressure 1: 102/68 Code: 8480-6 BMI: 19.6 Code: 89694-4 Heart Rate 1: 76 bpm Height: 5'4" Respiratory Rate: 20 bpm Temperature: 36 .8 (C) / 98.2 (F) Weight: 114 lbs 05/31/2013 Blood Pressure 1: 106/70 Code: 8480-6 BMI: 18.9 Code: 40550-8 Heart Rate 1: 100 bpm Height: 5'4" Respiratory Rate: 20 bpm Temperature: 36 .4 (C) / 97.6 (F) Weight: 110 lbs 05/03/2013 Blood Pressure 1: 126/70 Code: 8480-6 BMI: 19.1 Code: 95152-4 Heart Rate 1: 88 bpm Height: 5'4" Respiratory Rate: 20 bpm Temperature: 37 .1 (C) / 98.8 (F) Weight: 111 lbs 04/25/2013 Blood Pressure 1: 114/68 Code: 8480-6 BMI: 19.4 Code: 61584-8 Heart Rate 1: 92 bpm Height: 5'4" Respiratory Rate: 24 bpm SpO2: 96% Tempera ture: 37.7 (C) / 99.8 (F) Weight: 113 lbs 03/08/2013 Blood Pressure 1: 94/68 Code: 8480-6 BMI: 21.3 C ode: 21518-2 Heart Rate 1: 88 bpm Height: 5'4" Respiratory Rate: 24 bpm Temperature: 37 .0 (C) / 98.6 (F) Weight: 124 lbs 02/07/2013 Blood Pressure 1: 106/64 Code: 8480-6 BMI: 21.8 Code: 26321-2 Heart Rate 1: 84 bpm Height: 5'4" Respiratory Rate: 22 bpm Temperature: 36 .8 (C) / 98.2 (F) Weight: 127 lbs 01/10/2013 Blood Pressure 1: 122/68 Code: 8480-6 BMI: 21.6 Code: 47070-2 Heart Rate 1: 94 bpm Height: 5'4" SpO2: 94% Temperature: 36.7 (C) / 98.1 (F) Weight: 126 lbs 09/28/2012 Blood Pressure 1: 124/78 Code: 8480-6 BMI: 24.9 Code: 24478-5 Heart Rate 1: 92 bpm Height: 5'4" Respiratory Rate: 20 bpm Temperature: 36 .7 (C) / 98.1 (F) Weight: 145 lbs 06/28/2012 Blood Pressure 1: 134/80 Code: 8480-6 BMI: 24.9 Code: 94987-2 Heart Rate 1: 76 bpm Height: 5'4" Respiratory Rate: 20 bpm Temperature: 36 .8 (C) / 98.2 (F) Weight: 145 lbs 05/03/2012 Blood Pressure 1: 108/62 Code: 8480-6 BMI: 25.6 Code: 63845-7 Heart Rate 1: 88 bpm Height: 5'4" Temperature: 36.2 (C) / 97.2 (F) Weight: 149 lbs 03/01/2012 Blood Pressure 1: 124/66 Code: 8480-6 BMI: 25.1 Code: 47783-0 Heart Rate 1: 76 bpm Height: 5'4" Respiratory Rate: 20 bpm Temperature: 36 .6 (C) / 97.9 (F) Weight: 146 lbs 01/26/2012 Blood Pressure 1: 118/82 Code: 8480-6 BMI: 25.1 Code: 66876-3 Heart Rate 1: 74 bpm Height: 5'4" Temperature: 36.8 (C) / 98.2 (F) Weight: 146 lbs 11/03/2011 Blood Pressure 1: 126/80 Code: 8480-6 BMI: 27.3 Code: 15146-4 Heart Rate 1: 72 bpm Height: 5'4" [...] Codes Date () OFFICE/OUTPATIENT VISIT EST Diagnosis: Chronic pain syndrome[ICD10: G89.4] Diagnosis: Localized edema[ICD10: R60.0] Diagnosis: Chronic obstructive pulmonary disease, unspecified[ICD10: J44.9] Diagnosis: Other fatigue[ICD10: R53.83] Diagnosis: Muscle weakness (generalized)[ICD10: M62.81] Diagnosis: Spinal stenosis, lumbar region with neurogenic claudication[ICD10: M48.062] Vika SULLIVANQUELINE Eugenia RENTERIA hopscout CPT-4: 28995 11/29/2019 ([id number]) OFFICE/OUTPATIENT VISIT EST Diagnosis: Chronic pain syndrome[ICD10: G89.4] Diagnosis: Lumbar degenerative disc disease[ICD10: M51.36] Diagnosis: Muscle spasm[ICD10: M62.838] Diagnosis: Spinal stenosis, lumbar region with neurogenic claudication[ICD10: M48.062] Diagnosis: Spondylosis without myelopathy or radiculopathy, 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] Vika Brioneschalo VIKA Eugenia RENTERIA hopscout CPT-4: 82225 10/30/2019 ([id number]) OFFICE/OUTPATIENT VISIT EST Diagnosis: Chronic pain syndrome[ICD10: G89.4] Vika ELDER PramodSahara DEXTER hopscout CPT-4: 13948 10/25/2019 ([id number]) OFFICE/OUTPATIENT VISIT EST Diagnosis: Epigastric pain[ICD10: R10.13] Diagnosis: Nausea[ICD10: R11.0] Diagnosis: Chronic obstructive pulmonary disease, unspecified[ICD10: J44.9] Vika Brioneschalo VIKA Eugenia RENTERIA hop[facility]out CPT-4: 16030 07/26/2019 ([id number]) OFFICE/OUTPATIENT VISIT EST Diagnosis: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
--- OUTSIDE RECORDS SUMMARY | 2020-04-24 23:06 | XMS REPORT | CCD ---
Author Author Yana Renteria D.O. Organization [facility] Address [address] [place] [address] Phone Care Team Providers Care Returns Processor Name Role Phone Vika Renteria D.O., PP Unavailable CCM Unavailable Summary Purpose Interface Exchange Insurance Providers Payer name Policy type / Coverage type Covered constitution party ID Effective Begin Date Effective End Date [employer] [facility] [place] Medicaid [id number] 2018 U nknown Family History Family History data not found Social History Social History Element Codes Description Effective Dates Marital status Unknown 06/28/[address]: [id number] Currently smokes tobacco 05/2013 Allergies, Adverse Reactions, [...] Fill Instructions gabapentin 300 mg capsule RxNorm: 880992 TAKE ONE CAPSULE BY [facility] TWICE A DAY 01/16/2020 No Stop Date Active potassium chloride ER 20 mEq tablet,extended release RxNorm: 204698 TAKE ONE TABLET BY MOUTH DAILY 01/08/2020 07/05/2020 Active ProAir HFA 90 mcg/actuation aerosol inhaler RxNorm: 575820 INHALE ONE PUFF BY MOUTH EVERY 4 HOURS FOR WHEEZING OR FOR SHORTNESS OF BREATH 01/04/2020 No Stop Date Active metformin 500 mg tablet RxNorm: 827451 1 Tablet(s) Oral QD 01/04/20 20 04/02/2020 Active MS Contin 200 mg tablet,extended release RxNorm: 517892 1 Tablet(s) Oral two times a day 01/02/2020 01/31/2020 Active Pulmicort 1 mg/2 mL suspension for nebulization RxNorm: 6168 19 USE ONE VIAL VIA NEBULIZER BY MOUTH TWICE A DAY 12/21/2019 No Stop Date Active furosemide 40 mg tablet RxNorm: 650985 TAKE ONE TABLET BY MOUTH EVERY MORNING NEEDED 12/20/2019 No Stop Date Active levothyroxine 25 mcg tablet RxNorm: 301613 TAKE ONE TAB LET BY MOUTH EVERY MORNING 12/20/2019 No Stop Date Active MS Contin 200 mg tablet,extended release RxNorm: 341595 1 Tablet(s) Oral two times a day 12/05/2019 01/01/2020 Inactive Medrol (Aníbal) 4 mg tablets in a dose pack RxNorm: 443320 6 Tablet(s) Oral QD --then as directed 11/30/2019 12/05/2019 Inactive MS Contin 200 mg tablet,extended release RxNorm: 469951 1 Tablet(s) Oral two times a day 11/29/2019 12/04/2019 Inactive cyclobenzaprine 10 mg tablet RxNorm: 895733 TAKE ONE TA BLET BY MOUTH THREE TIMES A DAY NEEDED 11/21/2019 No Stop Date Active MS Contin 200 mg tablet,extended release RxNorm: 443065 1 Tablet(s) Oral two times a day replaces 100mg dose 11/03/2019 11/02/2019 Inactive MS Contin 200 mg tablet,extended release RxNorm: 623251 1 Tablet(s) Oral two times a day replaces 100mg dose 11/03/2019 11/29/2019 Inactive ferrous sulfate 325 mg (65 mg iron) tablet RxNorm: 232033 1 Tab let(s) Oral QD 10/30/2019 No Stop Date Active MS Contin 100 mg tablet,extended release RxNorm: 400739 1 Table t(s) Oral QD 10/30/2019 10/29/2019 Inactive MS Contin 100 mg tablet,extended release RxNorm: 529570 1 Table t(s) Oral QD 10/30/2019 11/02/2019 Inactive Relistor 150 mg tablet RxNorm: 3746254 TAKE THREE TABLETS BY [facility] DAILY 10/25/2019 No Stop Date Active pantoprazole 40 mg tablet,delayed release RxNorm: 261293 1 Tabl et(s) Oral QD 10/25/2019 No Stop Date Active Minipress 2 mg capsule RxNorm: 911993 1 Capsule(s) Oral QAM and 3 at bedtime 10/25/2019 No Stop Date Active Lancets, Super Thin RxNorm: 1 Unit Dose Miscellaneous QD 9 11/27/2020 Active Cymbalta 60 mg capsule,delayed release RxNorm: 821535 1 Capsule (s) Oral QAM 10/25/2019 No Stop Date Active Cymbalta 30 mg capsule,delayed release RxNorm: 164520 1 Capsule (s) Oral QAM 10/25/2019 No Stop Date Active oxycodone 15 mg tablet RxNorm: 4695589 1 Tablet(s) Oral four times a day as needed for pain 10/25/2019 11/28/2019 Inactive metformin 500 mg tablet RxNorm: 943741 1 Tablet(s) Oral QD 10/25/20 19 01/03/2020 Inactive levothyroxine 25 mcg tablet RxNorm: 132968 1 Tablet(s) Oral QAM 02/201912/19/2019 Inactive levothyroxine 25 mcg tablet RxNorm: 648061 1 Tablet(s) Oral QAM 02/201910/24/2019 Inactive MS Contin 100 mg tablet,extended release RxNorm: 503709 1 Tablet(s) Oral two times a day replaces fentanyl 10/25/2019 10/25/2019 Inactive Premarin 0.45 mg tablet RxNorm: 699061 TAKE ONE TABLET BY MOUTH DAILY 10/24/2019 No Stop Date Active Duragesic 100 mcg/hr transdermal patch RxNorm: 464710 2 Application TD Q48H for pain 10/18/2019 10/24/2019 Inactive gabapentin 300 mg capsule RxNorm: 552609 TAKE ONE CAPSULE BY MO UTH TWICE A DAY 10/16/2019 01/15/2020 Inactive cyclobenzaprine 10 mg tablet RxNorm: 952118 TAKE ONE TA BLET BY MOUTH THREE TIMES A DAY NEEDED 09/27/2019 11/20/2019 Inactive Relistor 150 mg tablet RxNorm: 6752734 TAKE THREE TABLETS BY [facility] DAILY 09/25/2019 10/24/2019 Inactive ProAir HFA 90 mcg/actuation aerosol inhaler RxNorm: 207981 INHALE ONE PUFF BY MOUTH EVERY 4 HOURS FOR WHEEZING OR FOR SHORTNESS OF BREATH 09/25/2019 01/03/2020 Inactive furosemide 40 mg tablet RxNorm: 153665 1 Tablet(s) Oral QAM as needed 09/25/2019 09/25/2019 Inactive oxycodone 15 mg tablet RxNorm: 7901908 1 Tablet(s) PO QID as nee ded for pain 09/21/2019 10/24/2019 Inactive Duragesic 100 mcg/hr transdermal patch RxNorm: 162917 2 Application TD Q48H for pain 09/19/2019 10/17/2019 Inactive Daliresp 500 mcg tablet RxNorm: 7563490 1 Tablet(s) Oral QD 019 03/08/2020 Active Relistor 150 mg tablet RxNorm: 2883569 TAKE THREE TABLETS BY [facility] DAILY 07/25/2019 07/30/2019 Inactive cyclobenzaprine 10 mg tablet RxNorm: 974878 TAKE ONE TA BLET BY MOUTH THREE TIMES A DAY NEEDED 07/25/2019 09/22/2019 Inactive potassium chloride ER 20 mEq tablet,extended release RxNorm: 876600 TAKE ONE TABLET BY MOUTH DAILY 07/25/2019 01/07/2020 Inactive fluoxetine 40 mg capsule RxNorm: 606680 TAKE ONE CAPSULE BY [facility]ENO[facility] EVERY MORNING 07/11/2019 10/24/2019 Inactive Medrol (Aníbal) 4 mg tablets in a dose pack RxNorm: 475158 6 Tablet(s) PO QD --then as directed 07/10/2019 07/15/2019 Inactive omeprazole 40 mg capsule,delayed release RxNorm: 817201 1 Capsule(s) PO QD for stomach TAKE ONE CAPSULE BY MOUTH DAILY 07/10/2019 10/24/2019 Inactive Augmentin 875 mg-125 mg tablet RxNorm: 357322 1 Tablet(s) PO BID 07/16/2019 Inactive Trulicity 0.75 mg/0.5 mL subcutaneous pen injector RxNorm: 1 829885 0.75 Milliliter(s) SQ weekly 07/05/2019 10/24/2019 Inactive Compazine 10 mg tablet RxNorm: 263277 TAKE ONE TABLET B Y MOUTH FOUR TIMES A DAY NEEDED FOR NAUSEA 06/20/2019 07/19/2019 Inactive ProAir HFA 90 mcg/actuation aerosol inhaler RxNorm: 881222 INHALE ONE PUFF BY MOUTH EVERY 4 HOURS FOR WHEEZING OR FOR SHORTNESS OF BREATH 06/20/2019 06/23/2019 Inactive Daliresp 500 mcg tablet RxNorm: 7589440 TAKE ONE TABLET BY MOUTH DAILY 06/12/2019 09/10/2019 Inactive eewveriu-zfgevuecn-imwrbvbbg 3.5 mg/mL-10,000 unit/mL- 1 % ear solution RxNorm: 656125 4 Drop(s) otic (ear) TID to left ear 06/05/2019 10/24/2019 Inac tive furosemide 40 mg tablet RxNorm: 755122 TAKE ONE TABLET BY MOUTH EVERY MORNING 05/26/2019 07/09/2019 Inactive Duragesic 100 mcg/hr transdermal patch RxNorm: 667752 2 Application TD Q48H for pain 05/16/2019 06/14/2019 Inactive oxycodone 15 mg tablet RxNorm: 6194652 1 Tablet(s) PO QID as nee ded for pain 05/10/2019 09/20/2019 Inactive doxycycline hyclate 100 mg capsule RxNorm: 2575691 1 Capsule(s) PO BID 05/03/2019 05/12/2019 Inactive prednisone 20 mg tablet RxNorm: 803779 1 Tablet(s) PO T ID for 3 days then 1 po BID for 3 days then one daily for 3 days 05/03/2019 07/11/2019 Inactiv e Ozempic 0.25 mg or 0.5 mg (2 mg/1.5 mL) subcutaneous p en injector RxNorm: 5637504 0.5 Milligram(s) SQ QW 05/03/2019 07/09/2019 Inactive fluconazole 100 mg tablet RxNorm: 250735 1 Tablet(s) PO QD 05/03/2005/07/2019 Inactive Premarin 0.45 mg tablet RxNorm: 151378 TAKE ONE TABLET BY MOUTH DAILY 05/03/2019 10/23/2019 Inactive potassium chloride ER 20 mEq tablet,extended release RxNorm: 057924 1 Tablet(s) PO QD 04/27/2019 07/25/2019 Inactive potassium chloride ER 20 mEq tablet,extended release RxNorm: 524583 1 Tablet(s) PO QD 04/25/2019 04/26/2019 Inactive Compazine 10 mg tablet RxNorm: 869412 1 Tablet(s) PO QID as nee ded for nausea 04/25/2019 05/04/2019 Inactive ProAir HFA 90 mcg/actuation aerosol inhaler RxNorm: 195746 INHALE ONE PUFF BY MOUTH EVERY 4 HOURS FOR WHEEZING OR FOR SHORTNESS OF BREATH 04/12/2019 06/10/2019 Inactive Medrol (Aníbal) 4 mg tablets in a dose pack RxNorm: 737964 6 Tablet(s) PO QD --then as directed 04/11/2019 04/16/2019 Inactive Symbicort 160 mcg-4.5 mcg/actuation HFA aerosol inhaler RxNo rm: 3685565 2 Puff(s) INH BID 04/10/2019 10/06/2019 Inactive levothyroxine 50 mcg tablet RxNorm: 000046 1 Tablet(s) PO QD 201810/24/2019 Inactive gabapentin 300 mg capsule RxNorm: 749723 1 Capsule(s) PO BID 201810/02/2019 Inactive Symbicort 160 mcg-4.5 mcg/actuation HFA aerosol inhaler RxNo rm: 4585991 2 Puff(s) INH BID 04/06/2019 04/09/2019 Inactive oxycodone 15 mg tablet RxNorm: 8178260 1 Tablet(s) PO QID as nee ded for pain 04/05/2019 05/09/2019 Inactive levothyroxine 50 mcg tablet RxNorm: 390860 1 Tablet(s) PO QD 201804/09/2019 Inactive furosemide 40 mg tablet RxNorm: 669721 TAKE ONE TABLET BY MOUTH EVERY MORNING 03/21/2019 04/19/2019 Inactive levothyroxine 50 mcg tablet RxNorm: 911121 TAKE ONE TABLET BY M OUTH DAILY 03/21/2019 03/27/2019 Inactive Duragesic 100 mcg/hr transdermal patch RxNorm: 141666 2 Application TD Q48H for pain 03/13/2019 04/11/2019 Inactive oxycodone 15 mg tablet RxNorm: 5634315 1 Tablet(s) PO QID as nee ded for pain 03/06/2019 04/04/2019 Inactive Relistor 150 mg tablet RxNorm: 7722076 3 Tablet(s) PO QD 02/28/2019 0 05/28/2019 Inactive cyclobenzaprine 10 mg tablet RxNorm: 568305 1 Tablet(s) PO TID as needed 02/28/2019 05/28/2019 Inactive phentermine 37.5 mg tablet RxNorm: 573190 1 Tablet(s) PO QAM 201803/15/2019 Inactive Duragesic 100 mcg/hr transdermal patch RxNorm: 694493 2 Application TD Q48H for pain 02/09/2019 03/10/2019 Inactive Daliresp 500 mcg tablet RxNorm: 4728860 TAKE ONE TABLET BY MOUTH DAILY 01/31/2019 05/30/2019 Inactive Premarin 0.45 mg tablet RxNorm: 534782 1 Tablet(s) PO QD 01/31/2019 0 04/30/2019 Inactive fluoxetine 40 mg capsule RxNorm: 066786 Capsule(s) TAKE ONE CAPSULE BY MOUTH EVERY MORNING 01/31/2019 04/30/2019 Inactive levothyroxine 50 mcg tablet RxNorm: 931914 1 Tablet(s) PO QD 201804/10/2019 Inactive follow up in 3 weeks levothyroxine 50 mcg tablet RxNorm: 386316 1 Tablet(s) PO QD 201801/25/2019 Inactive follow up in 3 weeks potassium chloride ER 20 mEq tablet,extended release RxNorm: 818932 2 Tablet(s) PO BID 01/23/2019 01/08/2020 Inactive Synthroid 50 mcg tablet RxNorm: 684400 TAKE ONE TABLET BY MOUTH DAILY 01/16/2019 10/24/2019 Inactive potassium chloride ER 20 mEq tablet,extended release RxNorm: 579648 2 Tablet(s) PO BID 01/04/2019 01/22/2019 Inactive ProAir HFA 90 mcg/actuation aerosol inhaler RxNorm: 668657 INHALE ONE PUFF BY MOUTH EVERY 4 HOURS FOR WHEEZING OR SHORTNESS OF BREATH 01/04/201902/20 Inactive Request already responded to by other me ans (e.g. phone or fax) ProAir HFA 90 mcg/actuation aerosol inhaler RxNorm: 0765034 INHALE ONE PUFF BY MOUTH EVERY 4 HOURS FOR WHEEZING OR SHORTNESS OF BREATH 01/02/201912/23 Inactive gabapentin 300 mg capsule RxNorm: 714541 TAKE ONE CAPSULE BY MO UTH TWICE A DAY 12/30/2018 04/06/2019 Inactive furosemide 40 mg tablet RxNorm: 771890 1 Tablet(s) PO QAM 12/26/2018 02/23/2019 Inactive Compazine 10 mg tablet RxNorm: 391310 1 Tablet(s) PO QID as nee ded for nausea 12/07/2018 12/16/2018 Inactive metolazone 2.5 mg tablet RxNorm: 883306 TAKE ONE TABLET BY MOUT H EVERY MORNING 12/05/2018 01/03/2019 Inactive metformin ER 500 mg tablet,extended release 24 hr RxNorm: 86 0975 TAKE ONE TABLET BY MOUTH DAILY 12/05/2018 01/04/2020 Inactive Synthroid 50 mcg tablet RxNorm: 567751 1 Tablet(s) PO QD 11/25/2018 0 01/03/2019 Inactive DC any other synthroid strengths. Should be 50mcg only cyclobenzaprine 10 mg tablet RxNorm: 433516 TAKE ONE TA BLET BY MOUTH THREE TIMES A DAY NEEDED 11/09/2018 02/06/2019 Inactive metolazone 2.5 mg tablet RxNorm: 483924 1 Tablet(s) PO QAM repl aces 5mg dose 11/02/2018 12/01/2018 Inactive potassium chloride ER 20 mEq tablet,extended release RxNorm: 827156 2 Tablet(s) PO QD 2018 01/02/2019 Inactive Compazine 10 mg tablet RxNorm: 115018 1 Tablet(s) PO QID as nee ded for nausea 10/18/2018 12/07/2018 Inactive furosemide 40 mg tablet RxNorm: 335345 1 Tablet(s) PO QAM 10/12/2018 12/10/2018 Inactive ondansetron 8 mg disintegrating tablet RxNorm: 968490 1 Tablet(s) PO Q6H as needed 10/11/2018 10/17/2018 Inactive scopolamine 1 mg over 3 days transdermal patch RxNorm: 45499 2 1 Application TD behind ear. Take off after three days 10/11/2018 01/02/2019 Inactive furosemide 40 mg tablet RxNorm: 966276 1 Tablet(s) PO QAM 10/10/2018 12/26/2018 Inactive metolazone 5 mg tablet RxNorm: 389861 1 Tablet(s) PO QAM 10/06/2018 1 01/03/2018 Inactive metolazone 5 mg tablet RxNorm: 642429 1 Tablet(s) PO QAM 10/06/2018 1 12/05/2017 Inactive Xtampza ER 36 mg capsule sprinkle RxNorm: 8495280 1 Capsule(s) P O BID 10/05/2018 01/02/2019 Inactive Xtampza ER 36 mg capsule sprinkle RxNorm: 4014965 1 Capsule(s) P O BID 10/05/2018 02/12/2019 Inactive omeprazole 40 mg capsule,delayed release RxNorm: 547977 TAKE ONE CAPSULE BY MOUTH DAILY 10/03/2018 12/31/2018 Inactive Duragesic 100 mcg/hr transdermal patch RxNorm: 972882 2 Application TD Q48H for pain 09/30/2018 10/29/2018 Inactive Synthroid 50 mcg tablet RxNorm: 791709 1 Tablet(s) PO QD 09/29/2018 0 11/25/2018 Inactive DC any other synthroid strengths. Should be 50mcg only Synthroid 50 mcg tablet RxNorm: 192630 1 Tablet(s) PO QD 09/29/2018 1 11/28/2017 Inactive furosemide 40 mg tablet RxNorm: 302792 2 Tablet(s) PO Q AM for 1 week then every other day for 2 weeks 09/27/2018 10/12/2018 Inactive fluoxetine 40 mg capsule RxNorm: 778592 2 Capsule(s) PO QD 09/27/20 18 10/17/2018 Inactive potassium chloride ER 20 mEq tablet,extended release RxNorm: 337109 2 Tablet(s) PO QD for 1 week then every other day for 2 weeks 09/27/2018 2018 Inactive ProAir HFA 90 mcg/actuation aerosol inhaler RxNorm: 2891274 INHALE ONE PUFF BY MOUTH EVERY 4 HOURS FOR WHEEZING OR SHORTNESS OF BREATH 09/26/201811/23 Inactive Synthroid 75 mcg tablet RxNorm: 294322 1 Tablet(s) PO QD 09/09/2018 Inactive Synthroid 75 mcg tablet RxNorm: 349860 1 Tablet(s) PO QD 09/09/2018 1 11/28/2017 Inactive furosemide 40 mg tablet RxNorm: 356676 1 Tablet(s) PO QD 09/06/2018 1 Inactive potassium chloride ER 20 mEq tablet,extended release RxNorm: 577783 1 Tablet(s) PO QD 09/06/2018 09/19/2018 Inactive Duragesic 100 mcg/hr transdermal patch RxNorm: 626756 2 Application TD Q48H for pain 08/30/2018 09/28/2018 Inactive gabapentin 300 mg capsule RxNorm: 625904 TAKE ONE CAPSULE BY [facility] TWICE A DAY 08/23/2018 12/20/2018 Inactive Daliresp 500 mcg tablet RxNorm: 9383841 TAKE ONE TABLET BY MOUTH DAILY 08/23/2018 01/19/2019 Inactive Pulmicort 1 mg/2 mL suspension for nebulization RxNorm: 6168 19 USE ONE VIAL VIA NEBULIZER BY MOUTH TWICE A DAY 08/23/2018 07/11/2019 Inactive Synthroid 88 mcg tablet RxNorm: 485035 1 Tablet(s) PO QD 08/19/2018 1 Inactive Medrol (Aníbal) 4 mg tablets in a dose pack RxNorm: 565419 Tablet(s) PO take as directed 08/16/2018 09/05/2018 Inactive Relistor 150 mg tablet RxNorm: 8087164 3 Tablet(s) PO QD 08/16/2018 1 Inactive Zithromax Z-Aníbal 250 mg tablet RxNorm: 272502 Tablet(s) PO take as directed 08/16/2018 09/05/2018 Inactive cyclobenzaprine 10 mg tablet RxNorm: 766461 1 Tablet(s) PO TID as needed 08/16/2018 11/08/2018 Inactive Synthroid 88 mcg tablet RxNorm: 918433 1 Tablet(s) PO Q D NEEDS UPDATED LABS BEFORE FURTHER REFILLS 08/08/2018 08/19/2018 Inactive Premarin 0.45 mg tablet RxNorm: 426785 1 Tablet(s) PO QD 08/03/2018 0 01/31/2019 Inactive fluoxetine 20 mg capsule RxNorm: 137679 TAKE ONE CAPSULE BY BENOIT TH DAILY 08/03/2018 09/26/2018 Inactive Xtampza ER 36 mg capsule sprinkle RxNorm: 6665416 1 Capsule(s) P O BID 08/03/2018 09/01/2018 Inactive metformin ER 500 mg tablet,extended release 24 hr RxNorm: 86 0975 1 Tablet(s) PO QD 08/03/2018 10/31/2018 Inactive Symbicort 160 mcg-4.5 mcg/actuation HFA aerosol inhaler RxNo rm: 4217252 2 Puff(s) INH BID 08/03/2018 01/29/2019 Inactive Duragesic 100 mcg/hr transdermal patch RxNorm: 245450 2 Application TD Q48H for pain 07/29/2018 08/27/2018 Inactive ProAir HFA 90 mcg/actuation aerosol inhaler RxNorm: 976289 INHALE TWO PUFFS BY MOUTH EVERY 4 HOURS FOR WHEEZING OR SHORTNESS OF BREATH 07/27/201802/2018 Inactive Relistor 150 mg tablet RxNorm: 9287398 3 Tablet(s) PO QD 07/20/2018 0 08/15/2018 Inactive metformin ER 500 mg tablet,extended release 24 hr RxNorm: 86 0975 TAKE ONE TABLET BY MOUTH DAILY 07/08/2018 08/02/2018 Inactive fluoxetine 40 mg capsule RxNorm: 684883 TAKE ONE CAPSULE BY BENOIT TH EVERY MORNING 07/08/2018 10/05/2018 Inactive Xtampza ER 18 mg capsule sprinkle RxNorm: 3616680 1 Capsule(s) P O BID 07/08/2018 08/02/2018 Inactive Relistor 150 mg tablet RxNorm: 5497562 3 Tablet(s) PO QD 07/08/2018 0 07/12/2018 Inactive Synthroid 88 mcg tablet RxNorm: 594335 1 Tablet(s) PO Q D NEEDS UPDATED LABS BEFORE FURTHER REFILLS 06/23/2018 07/07/2018 Inactive fluoxetine 40 mg capsule RxNorm: 284631 TAKE ONE CAPSULE BY BENOIT TH EVERY MORNING 06/15/2018 09/26/2018 Inactive orphenadrine citrate ER 100 mg tablet,extended release RxNor m: 753260 TAKE ONE TABLET BY MOUTH TWICE A DAY FOR MUSCLE SPASM 06/15/2018 08/15/2018 [place] [facility] Duragesic 100 mcg/hr transdermal patch RxNorm: 680420 2 Application TD Q48H for pain 05/30/2018 06/28/2018 Inactive ProAir HFA 90 mcg/actuation aerosol inhaler RxNorm: 222291 INHALE TWO PUFFS BY MOUTH EVERY 4 HOURS FOR WHEEZING OR SHORTNESS OF BREATH 05/19/201803/2018 Inactive Chantix Continuing Month Box 1 mg tablet RxNorm: 201992 TAKE ONE TABLET BY MOUTH TWICE A DAY 05/19/2018 08/15/2018 Inactive oxycodone 10 mg tablet RxNorm: 6762017 1-2 Tablet(s) PO QID as n eeded for pain 05/19/2018 07/07/2018 Inactive gabapentin 300 mg capsule RxNorm: 400105 TAKE ONE CAPSULE BY MO UTH TWICE A DAY 05/18/2018 07/16/2018 Inactive ProAir HFA 90 mcg/actuation aerosol inhaler RxNorm: 906444 INHALE TWO PUFFS BY MOUTH EVERY 4 HOURS FOR WHEEZING OR SHORTNESS OF BREATH 05/04/201804/23 Inactive Augmentin 500 mg-125 mg tablet RxNorm: 645271 1 Tablet(s) PO BID 05/03/2018 Inactive oxycodone 10 mg tablet RxNorm: 1720392 1-2 Tablet(s) PO QID as n eeded for pain 04/21/2018 05/18/2018 Inactive Synthroid 88 mcg tablet RxNorm: 730115 1 Tablet(s) PO QD 04/15/2018 0 08/08/2018 Inactive Symbicort 160 mcg-4.5 mcg/actuation HFA aerosol inhaler RxNo rm: 9304433 2 Puff(s) INH BID 04/15/2018 04/10/2019 Inactive Premarin 0.45 mg tablet RxNorm: 026090 1 Tablet(s) PO QD 04/15/2018 0 08/03/2018 Inactive ProAir HFA 90 mcg/actuation aerosol inhaler RxNorm: 527626 2 Puff(s) INH Q4H prn for wheezing or shortness of breath 04/15/2018 05/03/2018 Inactive metformin ER 500 mg tablet,extended release 24 hr RxNorm: 86 0975 1 Tablet(s) PO QD 04/11/2018 07/07/2018 Inactive omeprazole 40 mg capsule,delayed release RxNorm: 048751 TAKE ONE CAPSULE BY MOUTH DAILY 04/10/2018 06/08/2018 Inactive Synthroid 88 mcg tablet RxNorm: 581921 1 Tablet(s) PO QD 04/04/2018 0 04/14/2018 Inactive Synthroid 88 mcg tablet RxNorm: 562274 1 Tablet(s) PO QD 04/04/2018 0 04/03/2018 Inactive orphenadrine citrate ER 100 mg tablet,extended release RxNor m: 835645 1 Tablet(s) PO BID for muscle spasm 04/04/2018 05/03/2018 Inactive metformin ER 500 mg tablet,extended release 24 hr RxNorm: 86 0975 1 Tablet(s) PO QD NEEDS UPDATED LABS 03/31/2018 04/11/2018 Inactive doxycycline hyclate 100 mg capsule RxNorm: 5422165 1 Capsule(s) PO BID 03/31/2018 04/09/2018 Inactive prednisone 20 mg tablet RxNorm: 221671 3 Tablet(s) PO T ID for 3 days then 1 po BID for 3 days then one daily for 3 days 03/31/2018 07/06/2018 Inactiv e Chantix Continuing Month Box 1 mg tablet RxNorm: 421426 TAKE ONE TABLET BY MOUTH TWICE A DAY 03/25/2018 03/30/2018 Inactive oxycodone 10 mg tablet RxNorm: 4421994 1-2 Tablet(s) PO QID as n eeded for pain 03/21/2018 04/20/2018 Inactive Daliresp 500 mcg tablet RxNorm: 1884516 1 Tablet(s) PO QD 03/15/2018 08/22/2018 Inactive metformin ER 500 mg tablet,extended release 24 hr RxNorm: 86 0975 1 Tablet(s) PO QD NEEDS UPDATED LABS 03/14/2018 03/31/2018 Inactive nystatin 100,000 unit/mL oral suspension RxNorm: 622916 5 Chio liter(s) PO QID 03/02/2018 03/15/2018 Inactive nystatin 100,000 unit/mL oral suspension RxNorm: 289511 5 Chio liter(s) PO QID 03/02/2018 03/01/2018 Inactive oxycodone 10 mg tablet RxNorm: 9879356 1-2 Tablet(s) PO QID as n eeded for pain 02/16/2018 03/20/2018 Inactive fluoxetine 20 mg capsule RxNorm: 466893 1 Capsule(s) PO QD 02/15/20 18 08/02/2018 Inactive metformin ER 500 mg tablet,extended release 24 hr RxNorm: 86 0975 1 Tablet(s) PO QD Needs updated labs 02/14/2018 03/14/2018 Inactive cefdinir 300 mg capsule RxNorm: 227101 1 Capsule(s) PO BID 01/27/20 18 02/04/2018 Inactive orphenadrine citrate ER 100 mg tablet,extended release RxNor m: 577148 1 Tablet(s) PO BID for muscle spasm 01/26/2018 04/04/2018 Inactive gabapentin 300 mg capsule RxNorm: 505958 1 Capsule(s) PO BID 201704/17/2018 Inactive oxycodone 10 mg tablet RxNorm: 6292267 1-2 Tablet(s) PO QID as n eeded for pain 01/17/2018 02/15/2018 Inactive Duragesic 100 mcg/hr transdermal patch RxNorm: 571725 2 Application TD Q48H for pain 01/17/2018 02/15/2018 Inactive gabapentin 300 mg capsule RxNorm: 043603 TAKE ONE CAPSULE BY [facility] TWICE A DAY 12/20/2017 01/18/2018 Inactive fluoxetine 40 mg capsule RxNorm: 171940 TAKE ONE CAPSULE BY BENOIT TH EVERY MORNING 12/15/2017 03/14/2018 Inactive OneTouch Ultra Test strips RxNorm: TEST DAILY 11/04/2017 02/01/2018 Inactive gabapentin 300 mg capsule RxNorm: 036420 1 Capsule(s) P O TID replaces BID dosing 10/26/2017 02/22/2018 Inactive oxycodone 10 mg tablet RxNorm: 1849585 1-2 Tablet(s) PO QID as n eeded for pain 10/18/2017 01/16/2018 Inactive Duragesic 100 mcg/hr transdermal patch RxNorm: 466897 2 Application TD Q48H for pain 10/18/2017 11/16/2017 Inactive gabapentin 300 mg capsule RxNorm: 767983 1 Capsule(s) PO BID 201610/25/2017 Inactive Abilify 5 mg tablet RxNorm: 180314 1 Tablet(s) PO QAM 09/23/201702/2017 Inactive gabapentin 300 mg capsule RxNorm: 861641 1 Capsule(s) PO BID 201610/17/2017 Inactive oxycodone 10 mg tablet RxNorm: 5434139 1-2 Tablet(s) PO QID as n eeded for pain 09/15/2017 10/17/2017 Inactive Duragesic 100 mcg/hr transdermal patch RxNorm: 055868 2 Application TD Q48H for pain 09/15/2017 10/14/2017 Inactive Duragesic 100 mcg/hr transdermal patch RxNorm: 245712 2 Application TD Q48H for pain 09/15/2017 10/24/2019 Inactive oxycodone 10 mg tablet RxNorm: 1737660 1-2 Tablet(s) PO QID as n eeded for pain 09/15/2017 08/15/2018 Inactive Daliresp 500 mcg tablet RxNorm: 8826040 1 Tablet(s) PO QD 09/06/2017 03/15/2018 Inactive Ventolin HFA 90 mcg/actuation aerosol inhaler RxNorm: 171884 2 Puff(s) INH Q4H as needed 09/02/2017 05/19/2018 Inactive oxycodone 10 mg tablet RxNorm: 9596302 1-2 Tablet(s) PO QID as n eeded for pain 08/17/2017 09/14/2017 Inactive Duragesic 100 mcg/hr transdermal patch RxNorm: 852702 2 Application TD Q48H for pain 08/17/2017 09/14/2017 Inactive fluoxetine 40 mg capsule RxNorm: 458477 Capsule(s) TAKE ONE CAPSULE BY MOUTH EVERY MORNING 08/17/2017 12/14/2017 Inactive Pulmicort 1 mg/2 mL suspension for nebulization RxNorm: 6168 19 1 Unit Dose INH BID Dx: COPD (J44.9) 08/16/2017 08/22/2018 Inactive gabapentin 300 mg capsule RxNorm: 371376 1 Capsule(s) PO QHS 201610/18/2017 Inactive fluoxetine 20 mg capsule RxNorm: 834512 1 Capsule(s) PO QD 08/12/20 17 02/14/2018 Inactive Abilify 2 mg tablet RxNorm: 444810 1 Tablet(s) PO QD TA KE ONE TABLET BY MOUTH DAILY 08/12/2017 10/25/2017 Inactive metformin ER 500 mg tablet,extended release 24 hr RxNorm: 86 0975 1 Tablet(s) PO QD 08/10/2017 02/14/2018 Inactive Synthroid 112 mcg tablet RxNorm: 990965 1 Tablet(s) PO QD 08/10/2017 04/15/2018 Inactive oxycodone 10 mg tablet RxNorm: 4217299 1-2 Tablet(s) PO QID as n eeded for pain 07/19/2017 08/16/2017 Inactive Duragesic 100 mcg/hr transdermal patch RxNorm: 701889 2 Application TD Q48H for pain 07/19/2017 08/16/2017 Inactive Ventolin HFA 90 mcg/actuation aerosol inhaler RxNorm: 734358 2 Puff(s) INH Q4H as needed 07/12/2017 09/02/2017 Inactive Abilify 2 mg tablet RxNorm: 120379 1 Tablet(s) PO QD TA KE ONE TABLET BY MOUTH DAILY 07/06/2017 08/11/2017 Inactive gabapentin 800 mg tablet RxNorm: 000127 1 Tablet(s) PO TID 06/22/20 17 07/05/2017 Inactive Chantix Starting Month Box 0.5 mg (11)-1 mg (42) table ts in dose pack RxNorm: 146584 TAKE BY MOUTH INSTRUCTED - PER PACKAGE INSTRUCTIONS 06/0707/04/2017 Inactive Ventolin HFA 90 mcg/actuation aerosol inhaler RxNorm: 358976 2 Puff(s) INH Q4H as needed 05/26/2017 07/12/2017 Inactive Duragesic 100 mcg/hr transdermal patch RxNorm: 064639 2 Application TD Q48H for pain 05/19/2017 06/17/2017 Inactive oxycodone 10 mg tablet RxNorm: 3312387 1-2 Tablet(s) PO QID as n eeded for pain 05/19/2017 07/18/2017 Inactive Abilify 2 mg tablet RxNorm: 906820 TAKE ONE TABLET BY MOUTH DAILY 0 05/10/2017 07/05/2017 Inactive Synthroid 112 mcg tablet RxNorm: 189759 1 Tablet(s) PO QD 05/06/2017 08/10/2017 Inactive metformin ER 500 mg tablet,extended release 24 hr RxNorm: 86 0975 1 Tablet(s) PO QD 05/06/2017 08/10/2017 Inactive Topamax 100 mg tablet RxNorm: 536093 1 Tablet(s) PO QHS 05/06/2017 Inactive Premarin 0.45 mg tablet RxNorm: 386017 1 Tablet(s) PO QD 05/06/2017 0 04/15/2018 Inactive orphenadrine citrate ER 100 mg tablet,extended release RxNor m: 062927 1 Tablet(s) PO TID for muscle spasm--replaces methocarbamol 04/29/2017 Inactive oxycodone 10 mg tablet RxNorm: 5766217 1-2 Tablet(s) PO QID as n eeded for pain 04/21/2017 05/18/2017 Inactive Duragesic 100 mcg/hr transdermal patch RxNorm: 220651 2 Application TD Q48H for pain 04/21/2017 05/18/2017 Inactive fluoxetine 40 mg capsule RxNorm: 334965 Capsule(s) TAKE ONE CAPSULE BY MOUTH EVERY MORNING 04/20/2017 08/17/2017 Inactive Ventolin HFA 90 mcg/actuation aerosol inhaler RxNorm: 321792 2 Puff(s) INH Q4H as needed 04/05/2017 05/26/2017 Inactive Symbicort 160 mcg-4.5 mcg/actuation HFA aerosol inhaler RxNo rm: 7304587 2 Puff(s) INH BID 03/30/2017 04/15/2018 Inactive Spiriva with HandiHaler 18 mcg and inhalation capsules RxNor m: 306443 1 Capsule(s) INH QD USING HANDIHALER 03/30/2017 02/12/2019 Inactive Duragesic 100 mcg/hr transdermal patch RxNorm: 937705 2 Application TD Q48H for pain 03/18/2017 04/16/2017 Inactive oxycodone 10 mg tablet RxNorm: 8055578 1-2 Tablet(s) PO QID as n eeded for pain 03/18/2017 04/20/2017 Inactive metformin ER 500 mg tablet,extended release 24 hr RxNorm: 86 0975 Tablet(s) TAKE ONE TABLET BY MOUTH DAILY 03/01/2017 05/06/2017 Inactive Premarin 0.45 mg tablet RxNorm: 961764 Tablet(s) TAKE ONE TABLE T BY MOUTH DAILY 03/01/2017 05/06/2017 Inactive Synthroid 112 mcg tablet RxNorm: 292839 Tablet(s) TAKE ONE TABLET BY MOUTH DAILY 03/01/2017 05/06/2017 Inactive Daliresp 500 mcg tablet RxNorm: 6242823 1 Tablet(s) PO QD 03/01/2017 09/06/2017 Inactive 16.2 mg-0.1037 mg-0.0194 mg tablet RxNorm: 8430826 Tablet(s) PO PRN for gas and cramping 02/23/2017 04/28/2017 Inactive TAKE TWO TABLET S BY MOUTH THREE TIMES A DAY NEEDED FOR GAS AND CRAMPING gabapentin 800 mg tablet RxNorm: 337391 1 Tablet(s) PO TID repl aces 600mg 02/23/2017 04/28/2017 Inactive Duragesic 100 mcg/hr transdermal patch RxNorm: 659691 2 Application TD Q48H for pain 02/17/2017 03/17/2017 Inactive fluoxetine 20 mg capsule RxNorm: 181219 1 Capsule(s) PO QD 02/18/20 17 08/12/2017 Inactive oxycodone 20 mg tablet RxNorm: 6483031 1 Tablet(s) PO QID as nee ded for pain 02/17/2017 03/17/2017 Inactive Ventolin HFA 90 mcg/actuation aerosol inhaler RxNorm: 702596 INHALE TWO PUFFS BY MOUTH EVERY 4 HOURS NEEDED 02/15/2017 04/05/2017 Inactive Silvadene 1 % topical cream RxNorm: 991483 1 Application TOP BI D to burn area 02/01/2017 09/22/2017 Inactive Topamax 100 mg tablet RxNorm: 122501 TAKE ONE TABLET BY MOUTH EVERY NIGHT AT BEDTIME 01/29/2017 05/06/2017 Inactive Chantix Starting Month Box 0.5 mg (11)-1 mg (42) table ts in dose pack RxNorm: 225273 Tablet(s) PO as directed 01/29/2017 06/01/2017 Inactive Abilify 2 mg tablet RxNorm: 407204 TAKE ONE TABLET BY MOUTH DAILY 0 01/26/2017 04/25/2017 Inactive Chantix Starting Month Box 0.5 mg (11)-1 mg (42) table ts in dose pack RxNorm: 853037 Tablet(s) PO as directed 01/20/2017 01/28/2017 Inactive gabapentin 600 mg tablet RxNorm: 813150 1 Tablet(s) PO TID 01/21/20 17 02/22/2017 Inactive Chantix Continuing Month Box 1 mg tablet RxNorm: 381745 1 Table t(s) PO BID 12/31/2016 06/01/2017 Inactive Spiriva with HandiHaler 18 mcg and inhalation capsules RxNor m: 113740 INHALE THE ENTIRE CONTENTS OF 1 CAPSULE ONCE A DAY USING HANDIHALER 12/31/201607/2017 Inactive Synthroid 112 mcg tablet RxNorm: 439144 TAKE ONE TABLET BY MOUT H DAILY 12/30/2016 03/01/2017 Inactive metformin ER 500 mg tablet,extended release 24 hr RxNorm: 86 0975 TAKE ONE TABLET BY MOUTH DAILY 12/30/2016 03/01/2017 Inactive Premarin 0.45 mg tablet RxNorm: 097394 TAKE ONE TABLET BY MOUTH DAILY 12/30/2016 03/01/2017 Inactive omeprazole 40 mg capsule,delayed release RxNorm: 987198 TAKE ONE CAPSULE BY MOUTH DAILY 12/30/2016 01/25/2018 Inactive Ventolin HFA 90 mcg/actuation aerosol inhaler RxNorm: 618064 INHALE TWO PUFFS BY MOUTH EVERY 4 HOURS NEEDED 12/28/2016 02/13/2017 Inactive fluoxetine 40 mg capsule RxNorm: 835198 TAKE ONE CAPSULE BY BENOIT TH EVERY MORNING 12/15/2016 04/20/2017 Inactive Chantix Continuing Month Box 1 mg tablet RxNorm: 389128 TAKE ONE TABLET BY MOUTH TWICE A DAY 12/04/2016 12/31/2016 Inactive doxycycline hyclate 100 mg capsule RxNorm: 4731259 1 Capsule(s) PO BID 12/01/2016 12/07/2016 Inactive Levaquin 750 mg tablet RxNorm: 944172 1 Tablet(s) PO QD 12/01/2016 Inactive Abilify 2 mg tablet RxNorm: 142834 TAKE ONE TABLET BY MOUTH DAILY 0 11/25/2016 11/30/2016 Inactive Ventolin HFA 90 mcg/actuation aerosol inhaler RxNorm: 627167 INHALE TWO PUFFS BY MOUTH EVERY 4 HOURS NEEDED 11/02/2016 12/19/2016 Inactive Chantix Continuing Month Box 1 mg tablet RxNorm: 492598 Tablet(s) PO as directed 10/30/2016 12/03/2016 Inactive Symbicort 160 mcg-4.5 mcg/actuation HFA aerosol inhaler RxNo rm: 9107507 INHALE TWO PUFFS TWO TIMES A DAY 10/30/2016 03/30/2017 Inactive Abilify 2 mg tablet RxNorm: 492238 1 Tablet(s) PO QD 10/27/201611/24 Inactive amoxicillin 500 mg capsule RxNorm: 112157 1 Capsule(s) PO TID 10/1410/23/2016 Inactive amoxicillin 500 mg capsule RxNorm: 915563 1 Capsule(s) PO TID 10/1410/13/2016 Inactive Synthroid 112 mcg tablet RxNorm: 754467 TAKE ONE TABLET BY MOUT H DAILY 09/28/2016 12/29/2016 Inactive Topamax 100 mg tablet RxNorm: 160894 TAKE ONE TABLET BY MOUTH EVERY NIGHT AT BEDTIME 09/28/2016 01/28/2017 Inactive Premarin 0.45 mg tablet RxNorm: 614272 TAKE ONE TABLET BY MOUTH DAILY 09/28/2016 12/29/2016 Inactive metformin ER 500 mg tablet,extended release 24 hr RxNorm: 86 0975 TAKE ONE TABLET BY MOUTH DAILY 09/28/2016 12/29/2016 Inactive Ventolin HFA 90 mcg/actuation aerosol inhaler RxNorm: 511303 INHALE TWO PUFFS BY MOUTH EVERY 4 HOURS NEEDED 09/22/2016 10/23/2016 Inactive Pulmicort 1 mg/2 mL suspension for nebulization RxNorm: 6168 19 1 Unit Dose INH BID Dx: COPD (J44.9) 09/10/2016 08/16/2017 Inactive Pulmicort 1 mg/2 mL suspension for nebulization RxNorm: 6168 19 1 Unit Dose INH BID 09/10/2016 09/09/2016 Inactive Brovana 15 mcg/2 mL solution for nebulization RxNorm: 496833 1 Unit Dose INH BID Dx: COPD (J44.9) 09/10/2016 01/25/2018 Inactive Brovana 15 mcg/2 mL solution for nebulization RxNorm: 067699 1 Unit Dose INH BID 09/10/2016 09/09/2016 Inactive ipratropium-albuterol 0.5 mg-3 mg(2.5 mg base)/3 mL ne bulization soln RxNorm: 2942187 1 Unit Dose INH Q4H as needed Dx: COPD (J44.9) 09/10/2016 0 02/12/2019 Inactive orphenadrine citrate ER 100 mg tablet,extended release RxNor m: 455417 1 Tablet(s) PO BID for muscle spasm--replaces methocarbamol 09/09/2016 Inactive Chantix Continuing Month Box 1 mg tablet RxNorm: 067647 Tablet(s) PO as directed 09/09/2016 10/30/2016 Inactive orphenadrine citrate ER 100 mg tablet,extended release RxNor m: 600848 1 Tablet(s) PO BID for muscle spasm 09/09/2016 09/08/2016 Inactive Spiriva with HandiHaler 18 mcg and inhalation capsules RxNor m: 677922 INHALE THE ENTIRE CONTENTS OF 1 CAPSULE ONCE A DAY USING HANDIHALER 09/01/201605/2017 Inactive Daliresp 500 mcg tablet RxNorm: 0300547 1 Tablet(s) PO QD 08/27/2016 03/01/2017 Inactive prednisone 20 mg tablet RxNorm: 304707 3 Tablet(s) PO T ID for 3 days then 1 po BID for 3 days then one daily for 3 days 08/26/2016 04/28/2017 Inactiv e Wellbutrin XL 300 mg 24 hr tablet, extended release RxNorm: 588910 TAKE ONE TABLET BY MOUTH EVERY MORNING 07/29/2016 10/26/2016 Inactive gabapentin 600 mg tablet RxNorm: 296237 1 Tablet(s) PO BID 06/26/20 16 12/22/2016 Inactive fluoxetine 40 mg capsule RxNorm: 816711 TAKE ONE CAPSULE BY BENOIT TH EVERY MORNING 06/24/2016 11/20/2016 Inactive Duragesic 100 mcg/hr transdermal patch RxNorm: 031865 2 Application TD Q48H for pain 06/05/2016 07/04/2016 Inactive oxycodone 10 mg tablet RxNorm: 3201798 1-2 Tablet(s) PO QID as n eeded for pain 06/05/2016 03/17/2017 Inactive Belladonna-Phenobarbital 48 mg tablet,extended release RxNor m: 2 Tablet(s) PO TID 06/05/2016 01/19/2017 Inactive Premarin 0.45 mg tablet RxNorm: 616996 TAKE ONE TABLET BY MOUTH DAILY 05/27/2016 09/23/2016 Inactive Topamax 100 mg tablet RxNorm: 342693 TAKE ONE TABLET BY MOUTH EVERY NIGHT AT BEDTIME 05/27/2016 09/27/2016 Inactive Synthroid 112 mcg tablet RxNorm: 734637 TAKE ONE TABLET BY MOUT H DAILY 05/27/2016 09/23/2016 Inactive metformin ER 500 mg tablet,extended release 24 hr RxNorm: 86 0975 TAKE ONE TABLET BY MOUTH DAILY 05/27/2016 09/23/2016 Inactive Symbicort 160 mcg-4.5 mcg/actuation HFA aerosol inhaler RxNo rm: 8442529 INHALE TWO PUFFS TWO TIMES A DAY 05/27/2016 10/23/2016 Inactive Ventolin HFA 90 mcg/actuation aerosol inhaler RxNorm: 473837 INHALE TWO PUFFS BY MOUTH EVERY 4 HOURS NEEDED 05/21/2016 07/07/2016 Inactive omeprazole 40 mg capsule,delayed release RxNorm: 171962 1 Capsu le(s) PO QD 05/06/2016 08/03/2016 Inactive metformin ER 500 mg tablet,extended release 24 hr RxNorm: 86 0975 TAKE ONE TABLET BY MOUTH DAILY 04/23/2016 05/22/2016 Inactive methocarbamol 750 mg tablet RxNorm: 635773 2 Tablet(s) PO TID as needed for muscle spasm 04/23/2016 09/08/2016 Inactive Synthroid 112 mcg tablet RxNorm: 049190 TAKE ONE TABLET BY MOUT H DAILY 04/23/2016 05/22/2016 Inactive Spiriva with HandiHaler 18 mcg and inhalation capsules RxNor m: 188807 INHALE THE ENTIRE CONTENTS OF 1 CAPSULE ONCE A DAY USING HANDIHALER 04/09/201608/2016 Inactive Diflucan 100 mg tablet RxNorm: 433903 1 Tablet(s) PO QD 04/08/2016 Inactive doxycycline hyclate 100 mg capsule RxNorm: 1192713 1 Capsule(s) PO BID 04/08/2016 04/17/2016 Inactive doxycycline hyclate 100 mg capsule RxNorm: 7921951 1 Capsule(s) PO BID 04/08/2016 04/07/2016 Inactive Diflucan 100 mg tablet RxNorm: 506658 1 Tablet(s) PO QD 04/08/2016 Inactive ondansetron HCl 4 mg tablet RxNorm: 445900 1 Tablet(s) PO Q4H as needed for nausea and vomiting 04/08/2016 09/22/2017 Inactive gabapentin 600 mg tablet RxNorm: 583557 TAKE ONE TABLET BY MOUT H TWICE A DAY 03/24/2016 06/25/2016 Inactive Synthroid 112 mcg tablet RxNorm: 231634 TAKE ONE TABLET BY MOUT H DAILY 02/25/2016 04/22/2016 Inactive Levaquin 500 mg tablet RxNorm: 764442 1 Tablet(s) PO QD 01/23/2016 Inactive prednisone 20 mg tablet RxNorm: 519499 1 Tablet(s) PO T ID for 3 days then 1 po BID for 3 days then one daily for 3 days 01/23/2016 08/25/2016 Inactiv e SnapSense Ultra Test strips RxNorm: TEST BLOOD SUGAR ONCE DAILY 250.00 01/09/2016 11/04/2017 Inactive methocarbamol 750 mg tablet RxNorm: 631498 2 Tablet(s) PO TID as needed for muscle spasm 01/09/2016 04/23/2016 Inactive lactulose 10 gram/15 mL oral solution RxNorm: 503317 [address](s) PO QD 01/09/2016 09/22/2017 Inactive TAKE 1 TABLESPOON BY MOUTH ONCE DAILY metformin ER 500 mg tablet,extended release 24 hr RxNorm: 86 0975 1 Tablet(s) PO QD 12/26/2015 04/22/2016 Inactive fluoxetine 20 mg capsule RxNorm: 434654 1 Capsule(s) PO QD 12/23/19 16 06/19/2016 Inactive Premarin 0.45 mg tablet RxNorm: 930492 TAKE ONE TABLET BY MOUTH DAILY 12/23/2015 05/20/2016 Inactive fluoxetine 40 mg capsule RxNorm: 777039 1 Capsule(s) PO QD 12/23/19 16 06/19/2016 Inactive TAKE ONE CAPSULE BY MOUTH EV JANKI MORNING azithromycin 500 mg tablet RxNorm: 460722 1 Tablet(s) PO QD 016 12/19/2015 Inactive Zofran 4 mg tablet RxNorm: 295809 1 Tablet(s) PO Q4H prn nausea /vomiting 12/13/2015 03/30/2018 Inactive azithromycin 500 mg tablet RxNorm: 794890 1 Tablet(s) PO QD 016 12/12/2015 Inactive Duragesic 100 mcg/hr transdermal patch RxNorm: 962942 2 Application TD Q48H for pain 12/09/2015 01/07/2016 Inactive oxycodone 10 mg tablet RxNorm: 0297650 1-2 Tablet(s) PO QID as n eeded for pain 12/09/2015 06/04/2016 Inactive Bactroban 2 % topical cream RxNorm: 009600 Application TOP BID 11/2208/25/2016 Inactive doxycycline hyclate 100 mg capsule RxNorm: 4019789 1 Capsule(s) PO BID 12/03/2015 12/12/2015 Inactive Topamax 100 mg tablet RxNorm: 150663 TAKE ONE TABLET BY MOUTH EVERY NIGHT AT BEDTIME 11/25/2015 05/22/2016 Inactive Symbicort 160 mcg-4.5 mcg/actuation HFA aerosol inhaler RxNo rm: 5717411 INHALE TWO PUFFS TWO TIMES A DAY 11/25/2015 05/22/2016 Inactive Synthroid 112 mcg tablet RxNorm: 199358 Tablet(s) TAKE ONE TABLET BY MOUTH DAILY 11/25/2015 02/22/2016 Inactive omeprazole 40 mg capsule,delayed release RxNorm: 659282 1 Capsu le(s) PO QD 11/12/2015 05/05/2016 Inactive oxycodone 10 mg tablet RxNorm: 0282000 1-2 Tablet(s) PO QID as n eeded for pain 11/05/2015 12/08/2015 Inactive Duragesic 100 mcg/hr transdermal patch RxNorm: 069387 2 Application TD Q48H for pain 11/05/2015 12/04/2015 Inactive omeprazole 40 mg capsule,delayed release RxNorm: 076830 1 Capsu le(s) PO QD 10/07/2015 11/11/2015 Inactive Januvia 100 mg tablet RxNorm: 475791 TAKE ONE TABLET BY MOUTH DAILY 09/11/2015 12/25/2015 Inactive Zithromax 500 mg tablet RxNorm: 703743 1 Tablet(s) PO QD 09/10/2015 1 Inactive prednisone 20 mg tablet RxNorm: 343061 1 Tablet(s) PO T ID for 3 days then 1 po BID for 3 days then one daily for 3 days 09/10/2015 08/25/2016 Inactiv e Wellbutrin XL 300 mg 24 hr tablet, extended release RxNorm: 913608 1 Tablet(s) PO QAM 09/10/2015 12/02/2015 Inactive Topamax 100 mg tablet RxNorm: 999078 TAKE ONE TABLET BY MOUTH EVERY NIGHT AT BEDTIME 09/02/2015 11/24/2015 Inactive Synthroid 112 mcg tablet RxNorm: 355489 TAKE ONE TABLET BY MOUT H DAILY 09/02/2015 11/25/2015 Inactive methocarbamol 750 mg tablet RxNorm: 875879 2 Tablet(s) PO TID as needed for muscle spasm 08/15/2015 01/09/2016 Inactive Wellbutrin XL 150 mg 24 hr tablet, extended release RxNorm: 682142 TAKE ONE TABLET BY MOUTH EVERY MORNING 08/13/2015 08/13/2015 Inactive gabapentin 600 mg tablet RxNorm: 144680 1 Tablet(s) PO BID 08/13/20 15 02/08/2016 Inactive Wellbutrin XL 300 mg 24 hr tablet, extended release RxNorm: 993022 1 Tablet(s) PO QAM 08/06/2015 09/09/2015 Inactive Wellbutrin XL 150 mg 24 hr tablet, extended release RxNorm: 316787 1 Tablet(s) PO QAM 07/18/2015 08/05/2015 Inactive prednisone 20 mg tablet RxNorm: 517420 1 Tablet(s) PO BID 07/18/2015 07/22/2015 Inactive doxycycline hyclate 100 mg tablet,delayed release RxNorm: 43 4018 1 Tablet(s) PO BID 07/18/2015 07/27/2015 Inactive pravastatin 40 mg tablet RxNorm: 413566 1 Tablet(s) PO QD NEEDS FASTING LAB 07/15/2015 07/14/2015 Inactive pravastatin 40 mg tablet RxNorm: 810129 1 Tablet(s) PO QD NEEDS FASTING LAB 07/15/2015 01/25/2018 Inactive Ventolin HFA 90 mcg/actuation aerosol inhaler RxNorm: 571561 2 Puff(s) INH Q4H 07/08/2015 07/07/2015 Inactive prn Premarin 0.45 mg tablet RxNorm: 138600 1 Tablet(s) PO QD 07/01/2015 0 12/22/2015 Inactive pravastatin 40 mg tablet RxNorm: 441610 1 Tablet(s) PO QD NEEDS FASTING LAB 06/14/2015 07/15/2015 Inactive Ventolin HFA 90 mcg/actuation aerosol inhaler RxNorm: 2894537 2 Puff(s) INH Q4H 06/06/2015 07/08/2015 Inactive prn albuterol sulfate 2.5 mg/3 mL (0.083 %) solution for n ebulization RxNorm: 202738 1 Unit Dose INH QID 05/30/2015 No Stop Date Active Duragesic 100 mcg/hr transdermal patch RxNorm: 777354 2 Application TD Q48H for pain 04/29/2015 05/28/2015 Inactive gabapentin 600 mg tablet RxNorm: 772242 1 Tablet(s) PO BID 04/11/20 15 08/13/2015 Inactive Onglyza 5 mg tablet RxNorm: 223421 1 Tablet(s) PO QD for blood suga r 04/10/2015 04/15/2015 Inactive [Brand Copay Card: RxBIN:[id number] PCN:CRISTIANA RxGRP:[id number] ID#:[id number]] methocarbamol 750 mg tablet RxNorm: 246439 2 Tablet(s) PO TID as needed for muscle spasm 03/28/2015 08/15/2015 Inactive pravastatin 40 mg tablet RxNorm: 906426 1 Tablet(s) PO QD 03/19/2015 03/18/2015 Inactive pravastatin 40 mg tablet RxNorm: 438011 1 Tablet(s) PO QD 03/19/2015 06/14/2015 Inactive lactulose 10 gram/15 mL oral solution RxNorm: 886109 [address]s) PO QD 03/07/2015 01/09/2016 Inactive TAKE 1 TABLESPOON BY MOUTH ONCE DAILY oxycodone 20 mg tablet RxNorm: 2149401 1 Tablet(s) PO QID as nee ded for pain 03/05/2015 07/08/2015 Inactive Topamax 100 mg tablet RxNorm: 519087 1 Tablet(s) PO QHS TAKE ONE TABLET BY MOUTH AT BEDTIME 02/25/2015 02/12/2019 Inactive metformin ER 500 mg tablet,extended release 24 hr RxNorm: 86 0975 1 Tablet(s) PO QD 02/11/2015 03/04/2015 Inactive take one tablet by mouth every day Daliresp 500 mcg tablet RxNorm: 8784782 1 Tablet(s) PO QD 02/11/2015 08/09/2015 Inactive Endocet 10 mg-325 mg tablet RxNorm: 1588810 1 Tablet(s) PO Q4H as needed for pain 01/23/2015 01/23/2015 Inactive gabapentin 600 mg tablet RxNorm: 697502 1 Tablet(s) PO BID 01/23/20 15 04/11/2015 Inactive methocarbamol 750 mg tablet RxNorm: 142069 2 Tablet(s) PO TID as needed for muscle spasm 01/15/2015 02/13/2015 Inactive fluoxetine 40 mg capsule RxNorm: 452524 1 Capsule(s) PO QD 01/14/20 15 12/23/2015 Inactive TAKE ONE CAPSULE BY MOUTH EV JANKI MORNING fluoxetine 20 mg capsule RxNorm: 238130 1 Capsule(s) PO QD 01/14/20 15 12/23/2015 Inactive Premarin 0.45 mg tablet RxNorm: 601231 1 Tablet(s) PO QD 01/02/2015 0 07/01/2015 Inactive Endocet 10 mg-325 mg tablet RxNorm: 8756503 1-2 Tablet(s) PO Q4H 02/12/2019 Inactive PRN PAIN Duragesic 100 mcg/hr transdermal patch RxNorm: 255041 2 Application TD Q48H for pain 12/25/2014 01/23/2015 Inactive Topamax 100 mg tablet RxNorm: 481953 1 Tablet(s) PO QHS TAKE ONE TABLET BY MOUTH AT BEDTIME 12/25/2014 02/24/2015 Inactive Tudorza Pressair 400 mcg/actuation breath activated RxNorm: 4734531 1 BID INHALE ONE PUFF INTO LUNGS TWO TIMES A DAY 12/17/2014 05/15/2015 Inactive Endocet 10 mg-325 mg tablet RxNorm: 8244657 1-2 Tablet(s) PO Q4H 12/19/2014 Inactive PRN PAIN Duragesic 100 mcg/hr transdermal patch RxNorm: 926235 2 Application TD Q48H for pain 11/20/2014 12/24/2014 Inactive VimblyTouch Ultra Test strips RxNorm: TEST BLOOD SUGAR ONCE DAILY 250.00 11/16/2014 01/08/2016 Inactive omeprazole 40 mg capsule,delayed release RxNorm: 727168 1 Capsu le(s) PO QD 11/13/2014 11/12/2015 Inactive metformin ER 500 mg tablet,extended release 24 hr RxNorm: 86 0975 1 Tablet(s) PO QD 11/12/2014 02/11/2015 Inactive take one tablet by mouth every day Symbicort 160 mcg-4.5 mcg/actuation HFA aerosol inhaler RxNo rm: 2412633 2 Puff(s) INH BID 11/12/2014 03/11/2015 Inactive INHALE 2 PUFFS O RALLY TWO TIMES A DAY gabapentin 800 mg tablet RxNorm: 792588 1 Tablet(s) PO QD TAKE ONE TABLET BY MOUTH ONCE A DAY 10/22/2014 01/01/2015 Inactive Endocet 10 mg-325 mg tablet RxNorm: 9703142 1-2 Tablet(s) PO Q4H 11/15/2014 Inactive PRN PAIN Duragesic 100 mcg/hr transdermal patch RxNorm: 813110 2 Application TD Q48H for pain 10/17/2014 11/19/2014 Inactive gabapentin 800 mg tablet RxNorm: 604493 1 Tablet(s) PO QD TAKE ONE TABLET BY MOUTH ONCE A DAY 10/04/2014 10/21/2014 Inactive Premarin 0.9 mg tablet RxNorm: 913841 1 Tablet(s) PO QD TAKE ONE TABLET BY MOUTH ONCE A DAY 10/04/2014 01/01/2015 Inactive Spiriva with HandiHaler 18 mcg & inhalation capsules RxNorm: 729756 1 Capsule(s) INH QD 10/03/2014 04/30/2015 Inactive Levaquin 500 mg tablet RxNorm: 954965 1 Tablet(s) PO QD 10/03/2014 Inactive prednisone 20 mg tablet RxNorm: 998987 1 Tablet(s) PO QD 10/03/2014 1 12/09/2013 Inactive Duragesic 100 mcg/hr transdermal patch RxNorm: 164574 2 Application TD Q48H for pain 09/18/2014 10/16/2014 Inactive Endocet 10 mg-325 mg tablet RxNorm: 9555399 1-2 Tablet(s) PO Q4H 10/16/2014 Inactive PRN PAIN Synthroid 112 mcg tablet RxNorm: 066427 1 Tablet(s) QD 09/10/2014 Inactive Synthroid 112 mcg tablet RxNorm: 404805 TAKE ONE TABLET BY MOUTH ONE TIME A DAY. NEEDS LABS 09/10/2014 02/06/2015 Inactive omeprazole 40 mg capsule,delayed release RxNorm: 698991 1 Capsu le(s) PO QD 09/03/2014 11/13/2014 Inactive omeprazole 40 mg capsule,delayed release RxNorm: 759738 1 Capsu le(s) PO QD 09/03/2014 09/02/2014 Inactive Spiriva with HandiHaler 18 mcg & inhalation capsules RxNorm: 939583 1 Capsule(s) INH QD 08/27/2014 10/02/2014 Inactive gabapentin 600 mg tablet RxNorm: 640608 1 Tablet(s) PO BID 08/27/20 14 10/22/2014 Inactive Endocet 10 mg-325 mg tablet RxNorm: 4385398 1-2 Tablet(s) PO Q4H 09/17/2014 Inactive PRN PAIN fentanyl 100 mcg/hr transdermal patch RxNorm: 196565 1 Unit Dos e TD QD 08/21/2014 09/19/2014 Inactive Daliresp 500 mcg tablet RxNorm: 4251986 1 Tablet(s) PO QD 08/13/2014 02/11/2015 Inactive Synthroid 112 mcg tablet RxNorm: 442773 TAKE ONE TABLET BY MOUTH ONE TIME A DAY. NEEDS LABS 08/10/2014 09/10/2014 Inactive Endocet 10 mg-325 mg tablet RxNorm: 1160898 1-2 Tablet(s) PO Q4H 08/17/2014 Inactive PRN PAIN Duragesic 100 mcg/hr transdermal patch RxNorm: 899937 2 Application TD Q48H for pain 07/19/2014 09/17/2014 Inactive fluoxetine 40 mg capsule RxNorm: 409066 1 Capsule(s) PO QD 07/17/20 14 01/14/2015 Inactive TAKE ONE CAPSULE BY MOUTH EV JANKI MORNING fluoxetine 20 mg capsule RxNorm: 716672 1 Capsule(s) PO QD 07/17/20 14 01/14/2015 Inactive Spiriva with HandiHaler 18 mcg & inhalation capsules RxNorm: 062222 1 Capsule(s) INH QD 07/17/2014 08/26/2014 Inactive INHALE CONTENTS OF 1 CAPSULE(S) WITH HANDIHALER ONCE DAILY Zofran 4 mg tablet RxNorm: 361534 1 Tablet(s) PO Q4H prn nausea 07/25/2014 Inactive Synthroid 112 mcg tablet RxNorm: 621482 1 Tablet(s) PO QD 07/09/2014 07/09/2014 Inactive methocarbamol 750 mg tablet RxNorm: 492290 2 Tablet(s) PO TID as needed for muscle spasm 07/09/2014 09/06/2014 Inactive Synthroid 112 mcg tablet RxNorm: 814239 1 Tablet(s) PO QD - nee d labs 07/09/2014 08/07/2014 Inactive Medrol (Aníbal) 4 mg tablets in a dose pack RxNorm: 509668 6 Tablet(s) PO QD --then as directed 07/03/2014 07/08/2014 Inactive Tudorza Pressair 400 mcg/actuation breath activated RxNorm: 0749530 1 Puff(s) INH BID 07/03/2014 12/17/2014 Inactive cefdinir 300 mg capsule RxNorm: 375587 1 Capsule(s) PO BID 07/03/20 14 07/12/2014 Inactive Topamax 100 mg tablet RxNorm: 665771 Tablet(s) TAKE ONE TABLET BY MOUTH AT BEDTIME 07/02/2014 02/25/2015 Inactive Duragesic 100 mcg/hr transdermal patch RxNorm: 703244 2 Application TD Q48H for pain 06/25/2014 07/18/2014 Inactive Endocet 10 mg-325 mg tablet RxNorm: 5613657 1-2 Tablet(s) PO Q4H 07/18/2014 Inactive PRN PAIN metformin ER 500 mg tablet,extended release 24 hr RxNorm: 86 0975 1 Tablet(s) PO QD Needs labs 06/18/2014 07/01/2014 Inactive take one tablet by mouth every day Duragesic 100 mcg/hr transdermal patch RxNorm: 540817 2 Application TD Q48H for pain 05/22/2014 06/24/2014 Inactive Synthroid 112 mcg tablet RxNorm: 893167 1 Tablet(s) PO QD 05/22/2014 07/09/2014 Inactive Endocet 10 mg-325 mg tablet RxNorm: 5351175 1-2 Tablet(s) PO Q4H 06/20/2014 Inactive PRN PAIN Endocet 10 mg-325 mg tablet RxNorm: 4614356 1-2 Tablet(s) PO Q4H 05/21/2014 Inactive PRN PAIN Duragesic 100 mcg/hr transdermal patch RxNorm: 322663 2 Application TD Q48H for pain 04/25/2014 05/21/2014 Inactive Daliresp 500 mcg tablet RxNorm: 1563442 1 Tablet(s) PO QD 04/24/2014 08/13/2014 Inactive Symbicort 160 mcg-4.5 mcg/actuation HFA aerosol inhaler RxNo rm: 3250438 2 Puff(s) INH BID 04/24/2014 08/21/2014 Inactive INHALE 2 PUFFS O RALLY TWO TIMES A DAY metformin ER 500 mg tablet,extended release 24 hr RxNorm: 86 0975 1 Tablet(s) PO QD 04/24/2014 11/12/2014 Inactive TAKE ONE TABLET BY MOUTH EVERY DAY [AttnRPh:Saving Apply/Adjudicate RxGRP:LDMGRP RxBIN:[id number] RxPCN:2012 PCode:01 ID#:[id number]] Symbicort 160 mcg-4.5 mcg/actuation HFA aerosol inhaler RxNo rm: [id number] 2 Puff(s) INH BID 04/24/2014 11/12/2014 Inactive INHALE 2 PUFFS O RALLY TWO TIMES A DAY Premarin 0.9 mg tablet RxNorm: 642175 1 Tablet(s) PO QD 04/24/2014 Inactive TAKE ONE TABLET BY MOUTH EVERY DAY metformin ER 500 mg tablet,extended release 24 hr RxNorm: 86 0975 1 Tablet(s) PO QD Needs labs 04/24/2014 06/18/2014 Inactive TAKE ONE TABLET BY MOUTH EVERY DAY [AttnRPh:Saving Apply/Adjudicate RxGRP:LDMGRP RxBIN:[id number] RxPCN:2012 PCode:01 ID#:[id number]] gabapentin 800 mg tablet RxNorm: 668870 1 Tablet(s) PO QD 04/24/2014 10/04/2014 Inactive TAKE ONE TABLET BY MOUTH EVERY DAY Topamax 100 mg tablet RxNorm: 702859 1 Tablet(s) PO QHS 04/17/2014 Inactive Topamax 100 mg tablet RxNorm: 854875 TAKE ONE TABLET BY MOUTH A T BEDTIME 04/17/2014 07/01/2014 Inactive Tudorza Pressair 400 mcg/actuation breath activated RxNorm: 1676440 1 Puff(s) INH BID 04/11/2014 07/02/2014 Inactive Duragesic 100 mcg/hr transdermal patch RxNorm: 345046 2 Application TD Q48H for pain 03/27/2014 04/24/2014 Inactive Endocet 10 mg-325 mg tablet RxNorm: 6263505 1-2 Tablet(s) PO Q4H 04/24/2014 Inactive PRN PAIN Robaxin 750 mg tablet RxNorm: 849777 2 Tablet(s) PO TID as need ed for spasm 02/23/2014 03/28/2015 Inactive Duragesic 100 mcg/hr transdermal patch RxNorm: 743384 2 Application TD Q48H for pain 02/23/2014 No Stop Date Active Endocet 10 mg-325 mg tablet RxNorm: 7951871 1-2 Tablet(s) PO Q4H 03/23/2014 Inactive PRN PAIN Synthroid 112 mcg tablet RxNorm: 530218 1 Tablet(s) PO QD TAKE ONE TABLET BY MOUTH EVERY DAY 02/15/2014 05/22/2014 Inactive Zithromax 500 mg tablet RxNorm: 164106 1 Tablet(s) PO QD 01/30/2014 0 02/05/2014 Inactive Diflucan 100 mg tablet RxNorm: 217457 1 Tablet(s) PO QD 01/30/2014 Inactive prednisone 20 mg tablet RxNorm: 822220 1 Tablet(s) PO BID 01/30/2014 02/05/2014 Inactive fluoxetine 40 mg capsule RxNorm: 181821 1 Capsule(s) PO QD 01/23/20 14 07/16/2014 Inactive TAKE ONE CAPSULE BY MOUTH EV JANKI MORNING fluoxetine 40 mg capsule RxNorm: 318335 1 Capsule(s) PO QD 01/23/20 14 07/17/2014 Inactive TAKE ONE CAPSULE BY MOUTH EV JANKI MORNING cefdinir 300 mg capsule RxNorm: 417096 1 Capsule(s) PO BID 01/16/20 14 01/29/2014 Inactive Zithromax 500 mg tablet RxNorm: 679536 1 Tablet(s) PO QD 01/16/2014 0 01/22/2014 Inactive prednisone 20 mg tablet RxNorm: 660278 1 Tablet(s) PO BID 01/16/2014 01/22/2014 Inactive Spiriva with HandiHaler 18 mcg and inhalation capsules RxNor m: 941067 1 Capsule(s) INH QD 12/18/2013 07/17/2014 Inactive INHALE CONTENT S OF 1 CAPSULE(S) WITH HANDIHALER ONCE DAILY fluoxetine 20 mg capsule RxNorm: 785375 1 Capsule(s) PO QD 12/18/19 14 06/15/2014 Inactive Spiriva with HandiHaler 18 mcg & inhalation capsules RxNorm: 755180 1 Capsule(s) INH QD 12/18/2013 06/15/2014 Inactive INHALE CONTENTS OF 1 CAPSULE(S) WITH HANDIHALER ONCE DAILY fluoxetine 20 mg capsule RxNorm: 617655 1 Capsule(s) PO QD 12/18/19 14 07/17/2014 Inactive cefdinir 300 mg capsule RxNorm: 158297 2 Capsule(s) PO QD 12/12/2013 12/21/2013 Inactive Duragesic 100 mcg/hr transdermal patch RxNorm: 273903 2 Application TD Q48H for pain 12/08/2013 12/07/2013 Inactive Topamax 100 mg tablet RxNorm: 833150 1 Tablet(s) PO QHS 12/04/2013 Inactive Endocet 10 mg-325 mg tablet RxNorm: 9903380 1-2 Tablet(s) PO Q4H 12/26/2013 Inactive PRN PAIN Robaxin 750 mg tablet RxNorm: 233699 2 Tablet(s) PO TID as need ed for spasm 11/07/2013 01/05/2014 Inactive gabapentin 800 mg tablet RxNorm: 121848 1 Tablet(s) PO QD 10/16/2013 04/24/2014 Inactive TAKE ONE TABLET BY MOUTH EVERY DAY Symbicort 160 mcg-4.5 mcg/actuation HFA aerosol inhaler RxNo rm: 2034073 2 Puff(s) INH BID 10/16/2013 04/24/2014 Inactive INHALE 2 PUFFS O RALLY TWO TIMES A DAY Premarin 0.9 mg tablet RxNorm: 438145 1 Tablet(s) PO QD 10/16/2013 Inactive TAKE ONE TABLET BY MOUTH EVERY DAY metformin ER 500 mg tablet,extended release 24 hr RxNorm: 86 0975 1 Tablet(s) PO QD 10/16/2013 04/24/2014 Inactive TAKE ONE TABLET BY MOUTH EVERY DAY Daliresp 500 mcg tablet RxNorm: 6389082 1 Tablet(s) PO QD 10/16/2013 04/24/2014 Inactive Robaxin 750 mg tablet RxNorm: 515524 2 Tablet(s) PO TID as need ed for spasm 10/10/2013 11/06/2013 Inactive Duragesic 100 mcg/hr transdermal patch RxNorm: 752564 2 Application TD Q48H for pain 10/09/2013 No Stop Date Active Soma 350 mg tablet RxNorm: 690253 1 Tablet(s) PO TID 09/27/201310/09 Inactive TAKE ONE TABLET BY MOUTH THREE TIMES A D AY lactulose 10 gram/15 mL oral solution RxNorm: 880453 [address](s) PO QD 09/13/2013 03/07/2015 Inactive TAKE 1 TABLESPOON BY MOUTH ONCE DAILY Duragesic 100 mcg/hr transdermal patch RxNorm: 564642 2 Application TD Q48H for pain 09/06/2013 No Stop Date Active Endocet 10 mg-325 mg tablet RxNorm: 9227646 1-2 Tablet(s) PO Q4H 09/27/2013 Inactive PRN PAIN lancets 28 gauge RxNorm: Miscellaneous As needed for blo od glucose sticks 08/24/2013 No Stop Date Active 16.2 mg-0.1037 mg-0.0194 mg tablet RxNorm: 0102222 Tablet(s) PO PRN for gas and cramping 08/24/2013 01/19/2017 Inactive TAKE TWO TABLET S BY MOUTH THREE TIMES A DAY NEEDED FOR GAS AND CRAMPING Topamax 100 mg tablet RxNorm: 087011 1 Tablet(s) PO QHS 07/31/2013 Inactive Diflucan 100 mg tablet RxNorm: 513688 1 Tablet(s) PO QD 07/27/2013 Inactive cefdinir 300 mg capsule RxNorm: 428768 1 Capsule(s) PO BID 07/26/20 13 08/08/2013 Inactive Daliresp 500 mcg tablet RxNorm: 4164640 1 Tablet(s) PO QD 07/25/2013 10/15/2013 Inactive fluoxetine 40 mg capsule RxNorm: 989607 1 Capsule(s) PO QD 07/25/20 13 01/22/2014 Inactive TAKE ONE CAPSULE BY MOUTH EV JANKI MORNING Senokot-S 8.6 mg-50 mg tablet RxNorm: 3495091 1 Tablet(s) PO BID 10/25/2013 Inactive doxycycline hyclate 100 mg capsule RxNorm: 0089671 1 Capsule(s) PO BID 06/28/2013 07/07/2013 Inactive prednisone 20 mg tablet RxNorm: 491356 1 Tablet(s) PO BID 06/28/2013 07/04/2013 Inactive Zofran 4 mg tablet RxNorm: 834049 1 Tablet(s) PO Q4H prn nausea 03/201307/05/2013 Inactive Spiriva with HandiHaler 18 mcg & inhalation capsules RxNorm: 334586 1 Capsule(s) INH QD 06/26/2013 12/18/2013 Inactive INHALE CONTENTS OF 1 CAPSULE(S) WITH HANDIHALER ONCE DAILY Synthroid 112 mcg tablet RxNorm: 959307 1 Tablet(s) PO QD TAKE ONE TABLET BY MOUTH EVERY DAY 06/19/2013 02/15/2014 Inactive fluoxetine 20 mg capsule RxNorm: 847588 1 Capsule(s) PO QD 06/19/2012/18/2013 Inactive Ventolin HFA 90 mcg/actuation Aerosol Inhaler RxNorm: 1798747 2 Puff(s) INH Q4H 06/05/2013 No Stop Date Active prn Soma 350 mg tablet RxNorm: 933401 1 Tablet(s) PO TID 06/05/201307/04 Inactive TAKE ONE TABLET BY MOUTH THREE TIMES A D AY prednisone 20 mg tablet RxNorm: 231165 1 Tablet(s) PO QD 05/31/2013 0 06/06/2013 Inactive Topamax 100 mg tablet RxNorm: 841972 1 Tablet(s) PO QHS 05/22/2013 Inactive Levaquin 500 mg tablet RxNorm: 536437 1 Tablet(s) PO QD 05/03/2013 Inactive Diflucan 100 mg tablet RxNorm: 738807 1 Tablet(s) PO QD 05/03/2013 Inactive Daliresp 500 mcg tablet RxNorm: 3371604 1 Tablet(s) PO QD 05/01/2013 07/24/2013 Inactive Daliresp 500 mcg tablet RxNorm: 3581227 1 Tablet(s) PO QD 05/01/2013 04/30/2013 Inactive gabapentin 800 mg tablet RxNorm: 400113 1 Tablet(s) PO QD 04/10/2013 10/06/2013 Inactive TAKE ONE TABLET BY MOUTH EVERY DAY metformin ER 500 mg tablet,extended release 24 hr RxNorm: 86 0977 1 Tablet(s) PO QD 04/10/2013 10/06/2013 Inactive TAKE ONE TABLET BY MOUTH EVERY DAY Premarin 0.9 mg tablet RxNorm: 427057 1 Tablet(s) PO QD 04/10/2013 Inactive TAKE ONE TABLET BY MOUTH EVERY DAY Symbicort 160 mcg-4.5 mcg/actuation HFA aerosol inhaler RxNo rm: 5022259 2 Puff(s) INH BID 04/10/2013 10/06/2013 Inactive INHALE 2 PUFFS O RALLY TWO TIMES A DAY Synthroid 112 mcg tablet RxNorm: 704825 1 Tablet(s) PO QD TAKE ONE TABLET BY MOUTH EVERY DAY 04/10/2013 06/18/2013 Inactive Ventolin HFA 90 mcg/actuation Aerosol Inhaler RxNorm: 225638 2 Puff(s) INH Q4H 04/10/2013 No Stop Date Active prn fentanyl 100 mcg/hr transdermal patch RxNorm: 066769 1 Unit Dos e TD QD 04/03/2013 05/02/2013 Inactive Endocet 10 mg-325 mg tablet RxNorm: 6244036 1-2 Tablet(s) PO Q4H 05/02/2013 Inactive PRN PAIN Topamax 100 mg tablet RxNorm: 578600 1 Tablet(s) PO QHS 03/13/2013 Inactive Reglan 10 mg tablet RxNorm: 531143 1 Tablet(s) PO QID b efore meals and at bedtime 03/13/2013 04/09/2015 Inactive fluoxetine 20 mg capsule RxNorm: 746764 1 Capsule(s) PO QD 02/28/20 13 05/27/2013 Inactive Ventolin HFA 90 mcg/actuation Aerosol Inhaler RxNorm: 997220 2 Puff(s) INH Q4H 02/13/2013 No Stop Date Active prn fluoxetine 40 mg capsule RxNorm: 975851 1 Capsule(s) PO QD 01/31/20 13 07/24/2013 Inactive TAKE ONE CAPSULE BY MOUTH EV JANKI MORNING Soma 350 mg tablet RxNorm: 330756 1 Tablet(s) PO TID 01/20/201302/18 Inactive TAKE ONE TABLET BY MOUTH THREE TIMES A D AY Endocet 10 mg-325 mg tablet RxNorm: 9529189 1-2 Tablet(s) PO Q4H 02/06/2013 Inactive PRN PAIN MS Contin 200 mg tablet,extended release RxNorm: 315957 1 Table t(s) PO BID 01/18/2013 02/06/2013 Inactive Ventolin HFA 90 mcg/actuation Aerosol Inhaler RxNorm: 733027 2 Puff(s) INH Q4H 01/04/2013 No Stop Date Active prn Spiriva with HandiHaler 18 mcg & inhalation capsules RxNorm: 503654 1 Capsule(s) INH QD 12/29/2012 06/25/2013 Inactive INHALE CONTENTS OF 1 CAPSULE(S) WITH HANDIHALER ONCE DAILY Spiriva with HandiHaler 18 mcg & inhalation capsules RxNorm: 155743 1 Capsule(s) INH QD 12/26/2012 12/28/2012 Inactive INHALE CONTENTS OF 1 CAPSULE(S) WITH HANDIHALER ONCE DAILY Synthroid 112 mcg tablet RxNorm: 398748 Tablet(s) PO TA KE ONE TABLET BY MOUTH EVERY DAY 12/26/2012 04/09/2013 Inactive Endocet 10 mg-325 mg tablet RxNorm: 4172216 1-2 Tablet(s) PO Q4H 01/17/2013 Inactive PRN PAIN MS Contin 200 mg tablet,extended release RxNorm: 828678 1 Table t(s) PO BID 12/21/2012 01/17/2013 Inactive fluoxetine 20 mg capsule RxNorm: 389971 1 Capsule(s) PO QD 12/06/19 13 02/26/2013 Inactive Synthroid 112 mcg tablet RxNorm: 911006 1 Tablet(s) PO QD 12/06/2012 02/12/2019 Inactive TAKE ONE TABLET BY MOUTH EVERY DAY Ventolin HFA 90 mcg/actuation Aerosol Inhaler RxNorm: 749556 2 Puff(s) INH Q4H 12/06/2012 No Stop Date Active prn Reglan 10 mg tablet RxNorm: 277424 1 Tablet(s) PO QID b efore meals and at bedtime 11/24/2012 03/12/2013 Inactive Topamax 100 mg tablet RxNorm: 364976 1 Tablet(s) PO QHS 11/16/2012 Inactive Ventolin HFA 90 mcg/actuation Aerosol Inhaler RxNorm: 523031 2 Puff(s) INH Q4H 11/09/2012 No Stop Date Active prn gabapentin 800 mg tablet RxNorm: 452631 1 Tablet(s) PO QD 10/27/2012 04/09/2013 Inactive TAKE ONE TABLET BY MOUTH EVERY DAY metformin ER 500 mg tablet,extended release 24 hr RxNorm: 86 0977 1 Tablet(s) PO QD 10/27/2012 04/09/2013 Inactive TAKE ONE TABLET BY MOUTH EVERY DAY Symbicort 160 mcg-4.5 mcg/actuation HFA Aerosol Inhaler RxNo rm: 5139016 2 Puff(s) INH BID 10/27/2012 04/09/2013 Inactive INHALE 2 PUFFS O RALLY TWO TIMES A DAY Premarin 0.9 mg tablet RxNorm: 522868 1 Tablet(s) PO QD 10/27/2012 Inactive TAKE ONE TABLET BY MOUTH EVERY DAY Endocet 10 mg-325 mg tablet RxNorm: 4025808 1-2 Tablet(s) PO Q4H 11/24/2012 Inactive PRN PAIN MS Contin 200 mg tablet,extended release RxNorm: 796373 1 Table t(s) PO BID 10/26/2012 11/24/2012 Inactive Soma 350 mg tablet RxNorm: 580413 1 Tablet(s) PO TID 10/04/201211/02 Inactive TAKE ONE TABLET BY MOUTH THREE TIMES A D AY Ventolin HFA 90 mcg/actuation Aerosol Inhaler RxNorm: 406235 2 Puff(s) INH Q4H 10/03/2012 No Stop Date Active prn Daliresp 500 mcg tablet RxNorm: 4319146 1 Tablet(s) PO QD 09/28/2012 09/27/2012 Inactive Daliresp 500 mcg tablet RxNorm: 6732077 1 Tablet(s) PO QD 09/28/2012 04/25/2013 Inactive fluoxetine 20 mg capsule RxNorm: 651397 1 Capsule(s) PO QD 09/05/2012/06/2012 Inactive Topamax 50 mg tablet RxNorm: 905620 Tablet(s) PO for 1w k then 1 po q HS for 1wk then 2 po q HS 08/29/2012 09/27/2012 Inactive TAKE 1/2 TABLET BY MOUTH AT BEDTIME FOR 1 WEEK, THEN 1 TABLET AT BEDTIME FOR 1 WEEK, THEN 2 TABLETS AT BEDTIME Topamax 100 mg tablet RxNorm: 841907 1 Tablet(s) PO QHS 08/29/2012 Inactive Ventolin HFA 90 mcg/actuation Aerosol Inhaler RxNorm: 038041 2 Puff(s) INH Q4H 08/19/2012 No Stop Date Active prn Ventolin HFA 90 mcg/actuation Aerosol Inhaler RxNorm: 833810 2 Puff(s) INH Q4H 08/15/2012 No Stop Date Active prn Synthroid 112 mcg tablet RxNorm: 976973 1 Tablet(s) PO QD 08/10/2012 11/07/2012 Inactive TAKE ONE TABLET BY MOUTH EVERY DAY Synthroid 112 mcg tablet RxNorm: 522260 1 Tablet(s) PO QD 08/01/2012 08/09/2012 Inactive TAKE ONE TABLET BY MOUTH EVERY DAY Reglan 10 mg tablet RxNorm: 253150 1 Tablet(s) PO QID b efore meals and at bedtime 08/01/2012 11/23/2012 Inactive fluoxetine 40 mg capsule RxNorm: 304761 1 Capsule(s) PO QD 08/01/2001/27/2013 Inactive TAKE ONE CAPSULE BY MOUTH EV JANKI MORNING Ventolin HFA 90 mcg/actuation Aerosol Inhaler RxNorm: 609440 2 Puff(s) INH Q4H 08/01/2012 No Stop Date Active prn Soma 350 mg tablet RxNorm: 810603 1 Tablet(s) PO TID 07/20/201208/18 Inactive TAKE ONE TABLET BY MOUTH THREE TIMES A D AY Spiriva with HandiHaler 18 mcg & inhalation capsules RxNorm: 494218 1 Capsule(s) INH 07/01/2012 12/25/2012 Inactive INHALE CONTENTS OF 1 CAPSULE(S) WITH HANDIHALER ONCE DAILY Zithromax 250 mg Tab RxNorm: 575125 2 Tablet(s) PO QD 06/28/201206/22 Inactive MS Contin 200 mg tablet,extended release RxNorm: 474516 1 Table t(s) PO BID 06/28/2012 07/27/2012 Inactive Endocet 10 mg-325 mg tablet RxNorm: 0072194 1-2 Tablet(s) PO Q4H 07/27/2012 Inactive PRN PAIN Topamax 100 mg tablet RxNorm: 765985 1 Tablet(s) PO QHS 06/28/2012 Inactive 16.2 mg-0.1037 mg-0.0194 mg tablet RxNorm: 6258748 Tablet(s) PO PRN for gas and cramping 06/08/2012 08/23/2013 Inactive TAKE TWO TABLET S BY MOUTH THREE TIMES A DAY NEEDED FOR GAS AND CRAMPING Ventolin HFA 90 mcg/actuation Aerosol Inhaler RxNorm: 008922 2 Puff(s) INH Q4H 05/23/2012 No Stop Date Active prn Ventolin HFA 90 mcg/actuation Aerosol Inhaler RxNorm: 386671 2 Puff(s) INH Q4H 05/11/2012 No Stop Date Active prn Synthroid 112 mcg tablet RxNorm: 378847 1 Tablet(s) PO QD 05/09/2012 07/31/2012 Inactive TAKE ONE TABLET BY MOUTH EVERY DAY gabapentin 800 mg tablet RxNorm: 816398 1 Tablet(s) PO QD 05/09/2012 10/26/2012 Inactive TAKE ONE TABLET BY MOUTH EVERY DAY fluoxetine 40 mg capsule RxNorm: 039629 1 Capsule(s) PO QD 05/09/2007/31/2012 Inactive TAKE ONE CAPSULE BY MOUTH EV JANKI MORNING metformin ER 500 mg tablet,extended release 24 hr RxNorm: 86 0977 1 Tablet(s) PO QD 05/09/2012 10/26/2012 Inactive TAKE ONE TABLET BY MOUTH EVERY DAY Premarin 0.9 mg tablet RxNorm: 859764 1 Tablet(s) PO QD 05/09/2012 Inactive TAKE ONE TABLET BY MOUTH EVERY DAY Symbicort 160 mcg-4.5 mcg/actuation HFA Aerosol Inhaler RxNo rm: 9841713 2 Puff(s) INH BID 05/09/2012 10/26/2012 Inactive INHALE 2 PUFFS O RALLY TWO TIMES A DAY Endocet 10 mg-325 mg Tab RxNorm: 3472279 1-2 Tablet(s) PO Q4H 04/2705/26/2012 Inactive PRN PAIN MS Contin 200 mg Tab RxNorm: 764205 1 Tablet(s) PO BID 04/26/201202/2012 Inactive Ventolin HFA 90 mcg/actuation Aerosol Inhaler RxNorm: 255006 2 Puff(s) INH Q4H 04/25/2012 05/10/2012 Inactive prn Soma 350 mg tablet RxNorm: 840825 2 Tablet(s) PO TID 04/19/201207/19 Inactive TAKE ONE TABLET BY MOUTH THREE TIMES A D AY Ventolin HFA 90 mcg/actuation Aerosol Inhaler RxNorm: 086433 2 Puff(s) INH Q4H 04/12/2012 04/24/2012 Inactive prn Reglan 10 mg tablet RxNorm: 484167 1 Tablet(s) PO QID b efore meals and at bedtime 04/11/2012 07/31/2012 Inactive MS Contin 200 mg Tab RxNorm: 415000 1 Tablet(s) PO BID 03/30/201202/2012 Inactive Endocet 10 mg-325 mg Tab RxNorm: 7316489 1-2 Tablet(s) PO Q4H 03/3004/26/2012 Inactive PRN PAIN MS Contin 200 mg Tab RxNorm: 813630 1 Tablet(s) PO BID 03/02/201206/2012 Inactive Endocet 10 mg-325 mg Tab RxNorm: 8749358 1-2 Tablet(s) PO Q4H 03/0203/29/2012 Inactive PRN PAIN Daliresp 500 mcg tablet RxNorm: 8055487 1 Tablet(s) PO QD 03/01/2012 09/28/2012 Inactive MS Contin 200 mg Tab RxNorm: 792159 1 Tablet(s) PO BID 02/02/201208/2012 Inactive Endocet 10 mg-325 mg Tab RxNorm: 6506850 1-2 Tablet(s) PO Q4H 02/0103/01/2012 Inactive PRN PAIN fluoxetine 40 mg capsule RxNorm: 037131 1 Capsule(s) PO QD 02/02/2008/01/2012 Inactive TAKE ONE CAPSULE BY MOUTH EV JANKI MORNING Synthroid 112 mcg Tab RxNorm: 464063 1 Tablet(s) PO QD 01/18/2012 Inactive TAKE ONE TABLET BY MOUTH EVERY DAY lactulose 10 gram/15 mL oral solution RxNorm: 323942 [address]s) PO QD 01/18/2012 No Stop Date Active TAKE 1 TABLESPOON BY MOUTH ONCE DAILY Ventolin HFA 90 mcg/actuation Aerosol Inhaler RxNorm: 521640 2 Puff(s) INH Q4H 01/18/2012 04/11/2012 Inactive prn MS Contin 200 mg Tab RxNorm: 864387 1 Tablet(s) PO BID 01/05/201210/2012 Inactive Endocet 10 mg-325 mg Tab RxNorm: 9298045 1-2 Tablet(s) PO Q4H 01/0502/01/2012 Inactive PRN PAIN ProAir HFA 90 mcg/Actuation Aerosol Inhaler RxNorm: 983540 2 Pu ff(s) INH Q4H 12/21/2011 No Stop Date Active prn for wheezing or shortness of breath Spiriva with HandiHaler 18 mcg & inhalation Caps RxNorm: 580 261 1 Capsule(s) INH 12/21/2011 06/30/2012 Inactive INHALE CONTENTS OF 1 CAPSULE(S) WITH HANDIHALER ONCE DAILY Reglan 10 mg Tab RxNorm: 702469 1 Tablet(s) PO QID before meals and at bedtime 12/21/2011 04/10/2012 Inactive Synthroid 112 mcg Tab RxNorm: 192547 1 Tablet(s) PO QD 12/21/2011 Inactive TAKE ONE TABLET BY MOUTH EVERY DAY Endocet 10 mg-325 mg Tab RxNorm: 1234452 1-2 Tablet(s) PO Q4H 11/2512/24/2011 Inactive PRN PAIN MS Contin 200 mg Tab RxNorm: 514935 1 Tablet(s) PO BID 11/25/201112/2011 Inactive lactulose 10 gram/15 mL Oral Soln RxNorm: 297665 Milliliter(s) PO 1 No Stop Date Active TAKE 1 TABLESPOON BY MOUTH O NCE DAILY lactulose 10 gram/15 mL Oral Soln RxNorm: 206450 Milliliter(s) PO 1 12/12/2010 11/20/2011 Inactive TAKE 1 TABLESPOON BY MOUTH O NCE DAILY Premarin 0.9 mg Tab RxNorm: 622211 1 Tablet(s) PO QD 10/12/201105/08 Inactive TAKE ONE TABLET BY MOUTH EVERY DAY fluoxetine 20 mg capsule RxNorm: 682291 1 Capsule(s) PO QD 10/12/2009/05/2012 Inactive TAKE ONE CAPSULE BY MOUTH EV JANKI DAY Synthroid 112 mcg Tab RxNorm: 560192 1 Tablet(s) PO QD 10/12/2011 Inactive TAKE ONE TABLET BY MOUTH EVERY DAY metformin ER 500 mg 24 hr Tab RxNorm: 519622 1 Tablet(s) PO QD 09/2311/10/2011 Inactive TAKE ONE TABLET BY MOUTH GLYNN RY DAY Synthroid 112 mcg Tab RxNorm: 130704 1 Tablet(s) PO QD 10/12/2011 Inactive TAKE ONE TABLET BY MOUTH EVERY DAY metformin ER 500 mg 24 hr Tab RxNorm: 800396 1 Tablet(s) PO QD 09/2310/11/2011 Inactive TAKE ONE TABLET BY MOUTH GLYNN RY DAY Prevacid 30 mg Cap RxNorm: 758199 Capsule(s) PO 10/12/2011 01/25/2012 Inactive TAKE ONE CAPSULE BY MOUTH EVERY DAY Symbicort 160 mcg-4.5 mcg/actuation HFA Aerosol Inhaler RxNo rm: 4717964 2 Puff(s) INH BID 10/12/2011 05/08/2012 Inactive INHALE 2 PUFFS O RALLY TWO TIMES A DAY gabapentin 800 mg Tab RxNorm: 379380 1 Tablet(s) PO QD 10/12/2011 Inactive TAKE ONE TABLET BY MOUTH EVERY DAY MS Contin 200 mg Tab RxNorm: 502298 1 Tablet(s) PO BID 09/23/201111/2010 Inactive Endocet 10 mg-325 mg Tab RxNorm: 3887082 1-2 Tablet(s) PO Q4H 09/2310/22/2011 Inactive PRN PAIN Endocet 10 mg-325 mg Tab RxNorm: 4561083 1-2 Tablet(s) PO Q4H 08/2109/19/2011 Inactive PRN PAIN MS Contin 200 mg Tab RxNorm: 044033 1 Tablet(s) PO BID 08/21/2011 Inactive Diflucan 100 mg Tab RxNorm: 064581 1 Tablet(s) PO QD 08/10/201108/16 Inactive cefdinir 300 mg Cap RxNorm: 183547 2 Capsule(s) PO QD 08/10/201107/24 Inactive Reglan 10 mg Tab RxNorm: 277141 1 Tablet(s) PO AC & HS 07/15/2011 Inactive Endocet 10 mg-325 mg Tab RxNorm: 8290050 1-2 Tablet(s) PO Q4H 07/1508/13/2011 Inactive PRN PAIN One Touch Ultra Test strips RxNorm: Miscellaneous BID 06/11/2011 1 01/16/2014 Inactive TEST TWO TIMES A DAY lactulose 10 gram/15 mL Oral Soln RxNorm: 055092 Milliliter(s) PO 0 06/10/2011 10/11/2011 Inactive TAKE 1 TABLESPOON BY MOUTH O NCE DAILY Chantix Continuing Month Aníbal 1 mg Tab RxNorm: 952901 Tablet(s) PO 0 06/10/2011 11/02/2011 Inactive TAKE DIRECTED - PER PACK[employer] GE INSTRUCTIONS fluoxetine 40 mg Cap RxNorm: 705265 Capsule(s) PO 06/10/2011 02/02/20 12 Inactive TAKE ONE CAPSULE BY MOUTH EVERY MORNING Chantix Continuing Month Aníbal 1 mg Tab RxNorm: 901426 Ta blet(s) PO TAKE DIRECTED - PER PACKAGE INSTRUCTIONS 05/13/2011 06/09/2011 Inactive Soma 350 mg Tab RxNorm: 928705 Tablet(s) PO TAKE ON E TABLET BY MOUTH THREE TIMES A DAY 05/13/2011 04/18/2012 Inactive Chantix Continuing Month Aníbal 1 mg Tab RxNorm: 300753 Ta blet(s) PO as directed per package instructions. 04/22/2011 05/12/2011 Inactive Symbicort 160 mcg-4.5 mcg/Actuation HFA Aerosol Inhaler RxNo rm: 9008975 HFA Aerosol Inhaler INH INHALE 2 PUFFS ORALLY TWO TIMES A DAY 04/13/2011 Inactive Synthroid 112 mcg Tab RxNorm: 625451 Tablet(s) PO TAKE ONE TABLET BY MOUTH EVERY DAY 04/13/2011 10/12/2011 Inactive Premarin 0.9 mg Tab RxNorm: 570704 Tablet(s) PO TAKE ON E TABLET BY MOUTH EVERY DAY 04/13/2011 10/12/2011 Inactive gabapentin 800 mg Tab RxNorm: 417175 Tablet(s) PO TAKE ONE TABLET BY MOUTH EVERY DAY 04/13/2011 10/12/2011 Inactive Prevacid 30 mg Cap RxNorm: 029719 1 Capsule(s) PO QD 04/13/201110/11 Inactive Spiriva with HandiHaler 18 mcg & inhalation Caps RxNorm: 580 261 Capsule(s) INH INHALE CONTENTS OF 1 CAPSULE(S) WITH HANDIHALER ONCE DAILY 04/13/2011 12/21/2011 Inactive metformin ER 500 mg 24 hr Tab RxNorm: 416397 Tablet(s) PO TAKE ONE TABLET BY MOUTH EVERY DAY 04/13/2011 10/12/2011 Inactive Soma 350 mg Tab RxNorm: 256052 1 Tablet(s) PO QID 03/30/2011 02/13/20 19 Inactive fluoxetine 20 mg Cap RxNorm: 167448 Capsule(s) PO TAKE ONE CAPSULE BY MOUTH EVERY DAY 03/25/2011 10/12/2011 Inactive cefdinir 300 mg Cap RxNorm: 538384 2 Capsule(s) PO QD 03/19/201105/2011 Inactive 16.2 mg-0.1037 mg-0.0194 mg Tab RxNorm: 2338995 2 Tablet(s) PO TID PRN for gas and cramping 03/16/2011 07/13/2011 Inactive Soma 350 mg Tab RxNorm: 051519 2 Tablet(s) PO TID 03/16/2011 03/29/20 11 Inactive Chantix Starting Month Aníbal 0.5 mg (11)-1 mg (3x14) Tab s in a Dose Pack RxNorm: 010180 Tablet(s) PO as directed 03/02/2011 No Stop Date Active diazepam 10 mg Tab RxNorm: 570952 1 Tablet(s) PO BID 02/10/201101/19 Inactive Zofran 4 mg tablet RxNorm: 508331 1 Tablet(s) PO Q4H prn nausea 02/16/2011 Inactive Diflucan 100 mg Tab RxNorm: 455712 1 Tablet(s) PO QD 01/18/201101/24 Inactive Premarin 0.625 mg/g Vaginal Cream RxNorm: 481311 VAG In sert 1gm vaginally at bedtime 3 times weekly 01/18/2011 02/12/2019 Inactive loratadine 10 mg Tab RxNorm: 9080131 1 Tablet(s) PO QD 12/17/201003/2012 Inactive Spiriva with HandiHaler 18 mcg & inhalation Caps RxNorm: 580 261 1 Capsule(s) INH QD 12/17/2010 04/12/2011 Inactive Diflucan 100 mg Tab RxNorm: 635006 1 Tablet(s) PO QD 12/17/201012/23 Inactive diazepam 10 mg Tab RxNorm: 862977 1 Tablet(s) PO BID and PRN 201002/12/2019 Inactive One Touch Ultra Test Strips RxNorm: InVt BID Zainab t blood sugar at least twice daily. 11/11/2010 06/11/2011 Inactive fluoxetine 40 mg Cap RxNorm: 791030 1 Capsule(s) PO QAM 11/11/2010 Inactive diazepam 10 mg Tab RxNorm: 984946 1 Tablet(s) PO BID and PRN 200911/12/2010 Inactive Bactrim DS 800 mg-160 mg Tab RxNorm: 813675 1 Tablet(s) PO BID 09/2210/15/2010 Inactive fluoxetine 20 mg Cap RxNorm: 495651 1 Capsule(s) PO QD 10/02/201008/2011 Inactive Bactrim DS 800 mg-160 mg Tab RxNorm: 669366 1 Tablet(s) PO BID 01/201010/03/2010 Inactive Zofran 4 mg Tab RxNorm: 944139 1 Tablet(s) PO Q4H prn nausea 200910/16/2010 Inactive 16.2 mg-0.1037 mg-0.0194 mg Tab RxNorm: 2477650 2 Tablet(s) PO TID PRN for gas and cramping 09/17/2010 10/21/2010 Inactive Gabapentin 800 mg Tab RxNorm: 837243 1 Tablet(s) PO QD 09/16/2010 Inactive ProAir HFA 90 mcg/Actuation Aerosol Inhaler RxNorm: 899580 2 Puff(s) INH Q4H prn shortness of breath 09/15/2010 12/13/2010 Inactive gabapentin 800 mg Tab RxNorm: 905331 1 Tablet(s) PO QD 09/15/2010 Inactive Prevacid 30 mg Cap RxNorm: 285316 1 Capsule(s) PO QD 09/15/201004/12 Inactive loratadine 10 mg Tab RxNorm: 2174853 1 Tablet(s) PO QD 09/15/2010 Inactive Premarin 0.9 mg Tab RxNorm: 611623 1 Tablet(s) PO QD 09/15/201004/12 Inactive Synthroid 112 mcg Tab RxNorm: 988468 1 Tablet(s) PO QD 09/15/2010 Inactive metformin ER 500 mg 24 hr Tab RxNorm: 386429 1 Tablet(s) PO QD 08/2304/12/2011 Inactive Symbicort 160 mcg-4.5 mcg/Actuation Inhalation HFA Aer osol Inhaler RxNorm: 6672090 2 Puff(s) INH BID 09/15/2010 04/12/2011 Inactive diazepam 10 mg Tab RxNorm: 926083 1 Tablet(s) PO BID and PRN 200910/13/2010 Inactive Phentermine 37.5 mg Cap RxNorm: 959907 1 Capsule(s) PO QD 09/02/2010 11/02/2011 Inactive ProAir HFA 90 mcg/Actuation Aerosol Inhaler RxNorm: 999147 2 Puff(s) INH Q4H prn shortness of breath 08/07/2010 No Stop Date Active Premarin 0.9 mg Tab RxNorm: 959218 1 Tablet(s) PO QD 08/07/201009/14 Inactive Loratadine 10 mg Tab RxNorm: 2796025 1 Tablet(s) PO QD 08/07/2010 Inactive Lactulose 10 gram/15 mL Oral Soln RxNorm: 240815 1 Unit Dose PO QD 08/07/2010 02/12/2019 Inactive Zofran 4 mg Tab RxNorm: 831010 1 Tablet(s) PO Q4H prn nausea 2009 No Stop Date Active Gabapentin 800 mg Tab RxNorm: 942441 1 Tablet(s) PO QD 08/07/2010 Inactive Synthroid 112 mcg Tab RxNorm: 243802 1 Tablet(s) PO QD 08/07/2010 Inactive Metformin ER 500 mg 24 hr Tab RxNorm: 451923 1 Tablet(s) PO QD 07/2309/14/2010 Inactive Vitamin D 1,000 unit Tab RxNorm: 849522 1 Tablet(s) PO TID 08/07/20 10 02/12/2019 Inactive Symbicort 160 mcg-4.5 mcg/Actuation Inhalation HFA Aer osol Inhaler RxNorm: 1237440 2 Puff(s) INH BID 08/07/2010 09/14/2010 Inactive Prevacid 30 mg Cap RxNorm: 114278 1 Capsule(s) PO QD 08/07/201009/14 Inactive Metformin ER 500 mg 24 hr Tab RxNorm: 808258 1 Tablet(s) PO QD 06/2308/06/2010 Inactive Vitamin D 1,000 unit Tab RxNorm: 793139 1 Tablet(s) PO TID 07/14/2008/06/2010 Inactive Synthroid 112 mcg Tab RxNorm: 234417 1 Tablet(s) PO QD 07/14/2010 Inactive Lactulose 10 gram/15 mL Oral Soln RxNorm: 546152 1 Unit Dose PO QD 07/14/2010 08/06/2010 Inactive Levaquin 500 mg Tab RxNorm: 015865 1 Tablet(s) PO QD 07/14/201007/27 Inactive Premarin 0.9 mg Tab RxNorm: 846945 1 Tablet(s) PO QD 07/14/201008/06 Inactive ProAir HFA 90 mcg/Actuation Aerosol Inhaler RxNorm: 259250 2 Puff(s) INH Q4H prn shortness of breath 07/14/2010 No Stop Date Active Prevacid 30 mg Cap RxNorm: 169969 1 Capsule(s) PO QD 07/14/201008/06 Inactive Zofran 4 mg Tab RxNorm: 667391 1 Tablet(s) PO Q4H prn nausea 2009 No Stop Date Active Symbicort 160 mcg-4.5 mcg/Actuation Inhalation HFA Aer osol Inhaler RxNorm: 9334652 2 Puff(s) INH BID 07/14/2010 08/06/2010 Inactive Loratadine 10 mg Tab RxNorm: 5417061 1 Tablet(s) PO QD 07/14/2010 Inactive Gabapentin 800 mg Tab RxNorm: 700525 1 Tablet(s) PO QD 07/14/2010 Inactive Metformin ER 500 mg 24 hr Tab RxNorm: 271798 1 Tablet(s) PO 010 07/13/2010 Inactive Diazepam 10 mg Tab RxNorm: 935982 1 Tablet(s) PO BID and PRN 200909/06/2010 Inactive Premarin 0.9 mg Tab RxNorm: 932597 1 Tablet(s) PO QD 06/09/201007/13 Inactive Zofran 4 mg Tab RxNorm: 258891 1 Tablet(s) PO Q4H prn nausea 2009 No Stop Date Active ProAir HFA 90 mcg/Actuation Aerosol Inhaler RxNorm: 507034 2 Puff(s) INH Q4H prn shortness of breath 06/09/2010 No Stop Date Active Gabapentin 800 mg Tab RxNorm: 522748 1 Tablet(s) PO QD 06/09/2010 Inactive Loratadine 10 mg Tab RxNorm: 5673586 1 Tablet(s) PO QD 06/09/2010 Inactive Lactulose 10 gram/15 mL Oral Soln RxNorm: 654088 1 Unit Dose PO QD 06/09/2010 07/13/2010 Inactive Prevacid 30 mg Cap RxNorm: 229181 1 Capsule(s) PO QD 06/09/201007/13 Inactive Synthroid 112 mcg Tab RxNorm: 145496 1 Tablet(s) PO QD 06/09/2010 Inactive Symbicort 160 mcg-4.5 mcg/Actuation Inhalation HFA Aer osol Inhaler RxNorm: 0071844 2 Puff(s) INH BID 06/09/2010 07/13/2010 Inactive Omnicef 300 mg Cap RxNorm: 609861 2 Capsule(s) PO QD 05/07/201005/20 Inactive Metformin 500 mg Tab RxNorm: 980828 1 Tablet(s) PO QD 05/06/201005/22 Inactive ProAir HFA 90 mcg/Actuation Aerosol Inhaler RxNorm: 349544 2 Puff(s) INH Q4H prn shortness of breath 05/06/2010 No Stop Date Active lactulose 10 gram/15 mL Oral Soln RxNorm: 859467 1 Unit Dose PO QD 05/06/2010 06/10/2011 Inactive Loratadine 10 mg Tab RxNorm: 6703048 1 Tablet(s) PO QD 05/06/2010 Inactive Synthroid 112 mcg Tab RxNorm: 172374 1 Tablet(s) PO QD 05/06/2010 Inactive Symbicort 160 mcg-4.5 mcg/Actuation Inhalation HFA Aer osol Inhaler RxNorm: 0174279 2 Puff(s) INH BID 05/06/2010 06/08/2010 Inactive Gabapentin 800 mg Tab RxNorm: 600931 1 Tablet(s) PO QD 05/06/2010 Inactive 16.2 mg-0.1037 mg-0.0194 mg Tab RxNorm: 5259020 2 Tablet(s) PO TID PRN for gas and cramping 05/06/2010 05/12/2010 Inactive Zofran 4 mg Tab RxNorm: 832920 1 Tablet(s) PO Q4H prn nausea 200904/13/2010 Inactive MS Contin 60 mg Tab RxNorm: 650920 3 Tablet(s) PO BID 04/09/201004/22 Inactive Soma 350 mg Tab RxNorm: 101549 2 Tablet(s) PO TID 04/09/2010 05/08/20 10 Inactive Symbicort 160 mcg-4.5 mcg/Actuation Inhalation HFA Aer osol Inhaler RxNorm: 5050198 2 Puff(s) INH BID 04/08/2010 05/05/2010 Inactive Doxycycline 100 mg Cap RxNorm: 9873640 1 Capsule(s) PO BID 04/08/20 10 04/17/2010 Inactive Triamterene-Hydrochlorothiazide 37.5 mg-25 mg Cap RxNorm: 19 8316 1 Capsule(s) PO QAM 04/08/2010 09/04/2010 Inactive fluoxetine 40 mg Cap RxNorm: 197290 1 Capsule(s) PO QAM 04/08/2010 Inactive Morphine SR 120 mg multiphase 24 hr Cap RxNorm: 016199 1 Capsul e(s) PO 03/11/2010 04/07/2010 Inactive Endocet 10 mg-325 mg Tab RxNorm: 6673131 1-2 Tablet(s) PO Q4H TX N PAIN 03/11/2010 04/09/2010 Inactive Savella 100 mg Tab RxNorm: 127413 1 Tablet(s) PO BID 03/10/201004/09 Inactive Soma 350 mg Tab RxNorm: 788037 1 Tablet(s) PO TID prn spasm 010 04/09/2010 Inactive Savella 100 mg Tab RxNorm: 462597 1 Tablet(s) PO BID 02/03/201004/09 Inactive Aspirin 81 mg Tab RxNorm: 113295 1 Tablet(s) PO QD No Start Date Active Zyrtec 10 mg Tab RxNorm: 7382885 1 Tablet(s) PO QD No Start Date Active One Touch Ultra Test Strips RxNorm: Misc test at least t wice daily. No Start Date Active coenzyme Q10 200 mg capsule RxNorm: 220046 1 Capsule(s) PO QD No Star t Date Active One Touch Ultra Test Strips RxNorm: InVt BID Zainab t blood sugar at least twice daily. No Start Date 11/10/2010 Inactive Gabapentin 800 mg Tab RxNorm: 031993 1 Tablet(s) PO QD No Start Date 05/05/2010 Inactive Abilify 5 mg tablet RxNorm: 695758 1 Tablet(s) PO QD No Start Date Inactive Chantix 1 mg Tab RxNorm: 762915 1 Tablet(s) PO BID No Start Date 10/22 Inactive Ozempic 0.25 mg or 0.5 mg (2 mg/1.5 mL) subcutaneous p en injector RxNorm: 2948057 .25 Milligram(s) SQ QW No Start Date 07/04/2019 Inactive lancets 28 gauge RxNorm: Miscellaneous As needed for blo od glucose sticks No Start Date 08/23/2013 Inactive potassium chloride ER 20 mEq tablet,extended release RxNorm: 217373 2 Tablet(s) PO QD No Start Date 09/26/2018 Inactive Ventolin HFA 90 mcg/actuation Aerosol Inhaler RxNorm: 032080 2 Puff(s) INH Q4H prn No Start Date 01/17/2012 Inactive potassium chloride ER 20 mEq tablet,extended release RxNorm: 084778 2 Tablet(s) PO QD No Start Date 10/19/2018 Inactive Januvia 100 mg tablet RxNorm: 426192 1 Tablet(s) PO QD No Start Date 09/10/2015 Inactive Medrol (Aníbal) 4 mg Tabs in a Dose Pack RxNorm: 886526 Tablet(s) PO N o Start Date 08/09/2011 Inactive as directed Zithromax Z-Aníbal 250 mg Tab RxNorm: 412070 Tablet(s) PO No Start Date 01/25/2012 Inactive as directed vitamin B6-vitamin E-magnesium tablet RxNorm: 1 Tablet(s ) PO QHS with INH No Start Date 03/30/2018 Inactive prednisone 20 mg Tab RxNorm: 240994 1 Tablet(s) PO TID for 1wk then 1 po BID for 1wk No Start Date 01/25/2012 Inactive furosemide 40 mg tablet RxNorm: 435510 1 Tablet(s) PO QAM No Start Date 10/09/2018 Inactive Vitamin D3 1000 units Capsule RxNorm: 1 Capsule(s) PO TID No S tart Date 03/19/2015 Inactive Zofran 4 mg Tab RxNorm: 826847 1 Tablet(s) PO Q4H prn nausea No Sta rt Date 04/13/2010 Inactive Premarin 0.625 mg/g Vaginal Cream RxNorm: 793584 1 Gram (s) VAG QHS 3 times a week No Start Date 09/22/2017 Inactive oxycodone 10 mg tablet RxNorm: 0727476 1-2 Tablet(s) PO QID as n eeded for pain No Start Date 11/04/2015 Inactive Nicoderm CQ 21 mg/24 hr daily Patch RxNorm: 299770 1 Applicatio n TD QD No Start Date 08/05/2015 Inactive Topamax 50 mg tablet RxNorm: 150032 1/2 Tablet(s) PO QH S for 1wk then 1 po q HS for 1wk then 2 po q HS No Start Date 06/27/2012 Inactive Chantix Starting Month Aníbal 0.5 mg (11)-1 mg (3x14) Tab s in a Dose Pack RxNorm: 243867 Tablet(s) PO as directed No Start Date 03/01/2011 Inactive Trulicity 0.75 mg/0.5 mL subcutaneous pen injector RxNorm: 1 417520 Milliliter(s) SQ No Start Date 07/04/2019 Inactive Medrol (Aníbal) 4 mg Tabs in a Dose Pack RxNorm: 407914 Tablet(s) PO N o Start Date 01/25/2012 Inactive as directed Duragesic 100 mcg/hr Transderm Patch RxNorm: 997443 2 A pplication TD Q48H for pain No Start Date 09/05/2013 Inactive Premarin 0.9 mg Tab RxNorm: 407258 1 Tablet(s) PO QD No Start Date Inactive Zithromax Z-Aníbal 250 mg Tab RxNorm: 660709 Tablet(s) PO as direc chinmay No Start Date 01/25/2012 Inactive ondansetron 8 mg disintegrating tablet RxNorm: 236099 1 Tablet(s) PO Q6H as needed No Start Date 10/10/2018 Inactive oxycodone 15 mg tablet RxNorm: 1118541 1 Tablet(s) PO QID as nee ded for pain No Start Date 03/05/2019 Inactive ProAir HFA 90 mcg/Actuation Aerosol Inhaler RxNorm: 683486 2 Puff(s) INH Q4H prn for wheezing or shortness of breath No Start Date 12/21/2011 Inactive pravastatin 40 mg tablet RxNorm: 908719 1/2 Tablet(s) PO QOD No Sta rt Date 04/09/2015 Inactive ipratropium-albuterol 0.5 mg-3 mg(2.5 mg base)/3 mL ne bulization soln RxNorm: 3755991 1 Unit Dose INH Q4H as needed No Start Date 09/09/2016 Inactive furosemide 40 mg tablet RxNorm: 722071 1 Tablet(s) PO QAM as ne eded No Start Date 09/24/2019 Inactive Vitamin D2 oral RxNorm: 4018 oral No Start Date 03/18/2015 Inacti ve pravastatin 40 mg tablet RxNorm: 799888 1/2 Tablet(s) PO QD No Star t Date 04/09/2015 Inactive ondansetron HCl 4 mg tablet RxNorm: 543393 1 Tablet(s) PO Q4H as needed for nausea and vomiting No Start Date 04/07/2016 Inactive furosemide 40 mg tablet RxNorm: 969349 2 Tablet(s) PO QAM No Start Date 09/26/2018 Inactive gabapentin 800 mg tablet RxNorm: 857156 1/2 Tablet(s) PO BID No Sta rt Date 06/21/2017 Inactive gabapentin 800 mg tablet RxNorm: 365324 1/2 Tablet(s) PO BID No Sta rt Date 07/05/2017 Inactive ProAir HFA 90 mcg/Actuation Aerosol Inhaler RxNorm: 460433 2 Puff(s) INH Q4H prn shortness of breath No Start Date 05/05/2010 Inactive scopolamine 1 mg over 3 days transdermal patch RxNorm: 55415 2 1 Application TD behind ear. Take off after three days No Start Date 10/10/2018 Inactive Metformin 500 mg Tab RxNorm: 566423 1 Tablet(s) PO QD No Start Date 0 05/05/2010 Inactive MS Contin 200 mg Tab RxNorm: 922875 1 Tablet(s) PO BID No Start Date 08/20/2011 Inactive Belladonna-Phenobarbital 48 mg tablet,extended release RxNor m: 2 Tablet(s) PO TID No Start Date 06/04/2016 Inactive Synthroid 112 mcg Tab RxNorm: 141313 1 Tablet(s) PO QD No Start Date 05/05/2010 Inactive Zegerid 40 mg-1.1 gram Cap RxNorm: 893482 1 Capsule(s) PO QD No Sta rt Date 01/25/2012 Inactive Premarin 0.625 mg/g Vaginal Cream RxNorm: 568880 VAG In sert 1gm vaginally at bedtime 3 times weekly No Start Date 01/17/2011 Inactive potassium chloride ER 20 mEq tablet,extended release RxNorm: 108073 1 Tablet(s) PO QD No Start Date 04/24/2019 Inactive methocarbamol 750 mg tablet RxNorm: 714243 2 Tablet(s) PO TID as needed for muscle spasm No Start Date 07/08/2014 Inactive Biaxin XL Aníbal 500 mg 24 hr Tab RxNorm: 007767 Tablet(s) PO as d irected No Start Date 04/24/2013 Inactive Vitamin D3 1,000 unit tablet RxNorm: 198803 3 Tablet(s) PO QD No St art Date 06/01/2017 Inactive Morphine SR 120 mg multiphase 24 hr Cap RxNorm: 811126 1 Capsul e(s) PO BID No Start Date 04/09/2010 Inactive Silvadene 1 % topical cream RxNorm: 614596 1 Application TOP BI D to burn area No Start Date 01/31/2017 Inactive Prednisone 20 mg Tab RxNorm: 631915 1 Tablet(s) PO TID for 3days then BID for 4days No Start Date 01/25/2012 Inactive gabapentin 600 mg tablet RxNorm: 564368 1 Tablet(s) PO BID No Start Date 01/21/2015 Inactive topiramate 50 mg tablet RxNorm: 609660 1 Tablet(s) PO QHS No Start Date 03/30/2018 Inactive Januvia 100 mg tablet RxNorm: 958358 1/2 Tablet(s) PO QD No Start D ate 12/25/2015 Inactive Diazepam 10 mg Tab RxNorm: 068614 1 Tablet(s) PO BID and PRN No Sta rt Date 06/08/2010 Inactive Medication Administered No Medication Administered data Immunizations Vaccine Codes Date Status Influenza CVX: 141 09/28/2012 Pneumovax Unknown 09/28/2012 Influenza (Adult) CVX: 141 09/02/2010 Results No Results data Procedures Procedure Codes Date THER/PROPH/DIAG INJ SC/IM CPT-4: 89885 07/10/2019 METHYLPREDNISOLONE INJECTION CPT-4: J2930 07/10/2019 URINALYSIS NONAUTO W/O SCOPE CPT-4: 97570 09/06/2018 URINE CULTURE/ COLONY COUNT CPT-4: 95456 09/06/2018 DRAIN/INJECT JOINT/BURSA CPT-4: 39811 04/29/2017 TRIAMCINOLONE ACET INJ NOS CPT-4: J3301 04/29/2017 DEXAMETHASONE SODIUM PHOS CPT-4: J1100 04/29/2017 INFLUENZA ASSAY W/OPTIC CPT-4: 04567 12/01/2016 RESPIRATORY CULTURE & STAIN CPT-4: 77428 07/09/2016 TB INTRADERMAL TEST CPT-4: 70066 04/21/2016 DRAIN/INJECT JOINT/BURSA CPT-4: 90253 11/07/2013 METHYLPREDNISOLONE 40 MG INJ CPT-4: J1030 11/07/2013 TRIAMCINOLONE ACET INJ NOS CPT-4: J3301 11/07/2013 DRAIN/INJECT JOINT/BURSA CPT-4: 24142 08/08/2013 METHYLPREDNISOLONE 40 MG INJ CPT-4: J1030 08/08/2013 TRIAMCINOLONE ACET INJ NOS CPT-4: J3301 08/08/2013 FLU VACCINE 3 YRS & > IM UP 64 CPT-4: 67391 2 PNEUMOCOCCAL VACC 23 ADITYA IM CPT-4: 16164 09/28/2012 IMMUNIZATION ADMIN CPT-4: 58602 09/28/2012 IMMUNIZATION ADMIN EACH ADD CPT-4: 13472 09/28/2012 FLU VACCINE 3 YRS & > IM UP 64 CPT-4: 53227 0 IMMUNIZATION ADMIN CPT-4: 74095 09/02/2010 METHYLPREDNISOLONE INJECTION CPT-4: J2930 05/07/2010 THER/PROPH/DIAG INJ SC/IM CPT-4: 55925 05/07/2010 Vital Signs Date Vital 11/29/2019 Blood [...] 1: 122/78 Code: 8480-6 BMI: 29.5 Code: 59268-7 Heart Rate 1: 76 bpm Height: 5'4" Respiratory Rate: 20 bpm SpO2: 96% Tempera ture: 37.0 (C) / 98.6 (F) Weight: 172 lbs 01/25/2019 Blood Pressure 1: 132/80 Code: 8480-6 BMI: 29.7 Code: 66710-8 Heart Rate 1: 84 bpm Height: 5'4" Respiratory Rate: 22 bpm SpO2: 98% Tempera ture: 36.9 (C) / 98.4 (F) Weight: 173 lbs 01/03/2019 Blood Pressure 1: 116/70 Code: 8480-6 BMI: 29.5 Code: 12162-5 Heart Rate 1: 92 bpm Height: 5'4" Respiratory Rate: 24 bpm SpO2: 98% Tempera ture: 37.2 (C) / 98.9 (F) Weight: 172 lbs 11/21/2018 Blood Pressure 1: 146/82 Code: 8480-6 BMI: 28.2 Code: 63480-7 Heart Rate 1: 88 bpm Height: 5'4" Respiratory Rate: 22 bpm SpO2: 97% Tempera ture: 36.9 (C) / 98.4 (F) Weight: 164 lbs 10/27/2018 Blood Pressure 1: 122/70 Code: 8480-6 BMI: 27.6 Code: 86478-2 Heart Rate 1: 88 bpm Height: 5'4" Respiratory Rate: 20 bpm SpO2: 96% Tempera ture: 36.8 (C) / 98.3 (F) Weight: 161 lbs 10/18/2018 Blood Pressure 1: 126/70 Code: 8480-6 BMI: 28.3 Code: 07837-6 Heart Rate 1: 76 bpm Height: 5'4" Respiratory Rate: 20 bpm SpO2: 95% Tempera ture: 37.0 (C) / 98.6 (F) Weight: 165 lbs 09/27/2018 Blood Pressure 1: 124/78 Code: 8480-6 BMI: 27.1 Code: 52852-1 Heart Rate 1: 88 bpm Height: 5'4" Respiratory Rate: 20 bpm SpO2: 98% Tempera ture: 36.4 (C) / 97.6 (F) Weight: 158 lbs 09/14/2018 Blood Pressure 1: 140/72 Code: 8480-6 BMI: 26.1 Code: 61656-2 Heart Rate 1: 100 bpm Height: 5'4" Respiratory Rate: 20 bpm SpO2: 97% Tempera ture: 36.9 (C) / 98.4 (F) Weight: 152 lbs 09/06/2018 Blood Pressure 1: 156/82 Code: 8480-6 BMI: 26.3 Code: 30128-8 Heart Rate 1: 100 bpm Height: 5'4" Respiratory Rate: 28 bpm SpO2: 95% Tempera ture: 37.2 (C) / 98.9 (F) Weight: 153 lbs 08/16/2018 Blood Pressure 1: 130/78 Code: 8480-6 Heart Rate 1: 87 bpm Respiratory Rate: 24 bpm SpO2: 94% Temperature: 36.9 (C) / 98.4 (F) We ight: 147 lbs 8 oz 07/07/2018 Blood Pressure 1: 116/78 Code: 8480-6 BMI: 22.7 Code: 70672-4 Heart Rate 1: 88 bpm Height: 5'4" Respiratory Rate: 22 bpm SpO2: 98% Tempera ture: 36.5 (C) / 97.7 (F) Weight: 132 lbs 05/31/2018 Blood Pressure 1: 128/78 Code: 8480-6 BMI: 22.3 Code: 86379-0 Heart Rate 1: 92 bpm Height: 5'4" Respiratory Rate: 26 bpm SpO2: 94% Tempera ture: 36.7 (C) / 98.1 (F) Weight: 130 lbs 03/31/2018 Blood Pressure 1: 136/78 Code: 8480-6 BMI: 21.5 Code: 67834-4 Heart Rate 1: 76 bpm Height: 5'4" Respiratory Rate: 24 bpm SpO2: 95% Tempera ture: 36.8 (C) / 98.3 (F) Weight: 125 lbs 01/26/2018 Blood Pressure 1: 142/64 Code: 8480-6 BMI: 20.6 Code: 46851-3 Heart Rate 1: 90 bpm Height: 5'4" Respiratory Rate: 24 bpm SpO2: 92% Tempera ture: 36.3 (C) / 97.3 (F) Weight: 120 lbs 10/26/2017 Blood Pressure 1: 124/70 Code: 8480-6 BMI: 20.3 Code: 02956-7 Heart Rate 1: 76 bpm Height: 5'4" Respiratory Rate: 22 bpm SpO2: 94% Tempera ture: 36.7 (C) / 98.1 (F) Weight: 118 lbs 09/23/2017 Blood Pressure 1: 106/70 Code: 8480-6 BMI: 19.2 Code: 83883-8 Heart Rate 1: 76 bpm Height: 5'4" Respiratory Rate: 20 bpm SpO2: 94% Tempera ture: 36.8 (C) / 98.3 (F) Weight: 112 lbs 08/12/2017 Blood Pressure 1: 116/68 Code: 8480-6 BMI: 20.1 Code: 89287-3 Heart Rate 1: 80 bpm Height: 5'4" Respiratory Rate: 22 bpm SpO2: 95% Tempera ture: 36.8 (C) / 98.2 (F) Weight: 117 lbs 07/06/2017 Blood Pressure 1: 136/78 Code: 8480-6 BMI: 20.6 Code: 89710-3 Heart Rate 1: 76 bpm Height: 5'4" Respiratory Rate: 24 bpm SpO2: 96% Tempera ture: 36.8 (C) / 98.2 (F) Weight: 120 lbs 06/02/2017 Blood Pressure 1: 112/70 Code: 8480-6 Heart Rate 1: 92 bpm Height: 5'4" Respiratory Rate: 24 bpm SpO2: 95% Temperature: 37.0 (C) / 98.6 (F) Weight: 04/29/2017 Blood Pressure 1: 94/52 Code: 8480-6 BMI: 19.6 C ode: 90962-6 Heart Rate 1: 84 bpm Height: 5'4" [...] 92/58 Code: 8480-6 BMI: 19.2 C ode: 01838-4 Heart Rate 1: 84 bpm Height: 5'4" Respiratory Rate: 26 bpm SpO2: 95% Tempera ture: 36.7 (C) / 98.0 (F) Weight: 112 lbs 12/01/2016 Blood Pressure 1: 114/70 Code: 8480-6 BMI: 19.2 Code: 52568-2 Heart Rate 1: 96 bpm Height: 5'4" Respiratory Rate: 28 bpm SpO2: 93% Tempera ture: 38.3 (C) / 101.0 (F) Weight: 112 lbs 10/27/2016 Blood Pressure 1: 126/66 Code: 8480-6 BMI: 19.6 Code: 75638-2 Heart Rate 1: 92 bpm Height: 5'4" Respiratory Rate: 28 bpm SpO2: 90% Tempera ture: 36.8 (C) / 98.3 (F) Weight: 114 lbs 09/09/2016 Blood Pressure 1: 126/74 Code: 8480-6 Heart Rate 1: 104 bpm Height: 5'4" Respiratory Rate: 32 bpm SpO2: 88% Temperature: 37 .2 (C) / 99.0 (F) 08/26/2016 Blood Pressure 1: 134/82 Code: 8480-6 BMI: 22.0 Code: 67212-0 Heart Rate 1: 84 bpm Height: 5'4" Respiratory Rate: 24 bpm SpO2: 94% Tempera ture: 36.8 (C) / 98.3 (F) Weight: 128 lbs 05/21/2016 Blood Pressure 1: 142/80 Code: 8480-6 BMI: 21.6 Code: 40612-3 Heart Rate 1: 104 bpm Height: 5'4" Respiratory Rate: 22 bpm SpO2: 93% Tempera ture: 36.0 (C) / 96.8 (F) Weight: 126 lbs 03/25/2016 Blood Pressure 1: 126/62 Code: 8480-6 Heart Rate 1: 88 bpm Respiratory Rate: 20 bpm SpO2: 92% Temperature: 36.8 (C) / 98.3 (F) We ight: 130 lbs 01/23/2016 Blood Pressure 1: 146/82 Code: 8480-6 BMI: 24.1 Code: 04471-9 Heart Rate 1: 92 bpm Height: 5'3" Respiratory Rate: 22 bpm Temperature: 37 .1 (C) / 98.8 (F) Weight: 136 lbs 12/26/2015 Blood Pressure 1: 142/78 Code: 8480-6 BMI: 24.6 Code: 42466-7 Heart Rate 1: 78 bpm Height: 5'3" Respiratory Rate: 20 bpm Temperature: 36 .7 (C) / 98.1 (F) Weight: 139 lbs 12/03/2015 Blood Pressure 1: 126/60 Code: 8480-6 BMI: 24.6 Code: 04009-3 Heart Rate 1: 100 bpm Height: 5'3" Respiratory Rate: 28 bpm Temperature: 37 .6 (C) / 99.6 (F) Weight: 139 lbs 09/10/2015 Blood Pressure 1: 124/64 Code: 8480-6 BMI: 23.7 Code: 17715-7 Heart Rate 1: 88 bpm Height: 5'3" Respiratory Rate: 24 bpm SpO2: 95% Tempera ture: 36.4 (C) / 97.6 (F) Weight: 134 lbs 08/06/2015 Blood Pressure 1: 114/76 Code: 8480-6 BMI: 23.2 Code: 48213-6 Heart Rate 1: 88 bpm Height: 5'3" Respiratory Rate: 22 bpm Temperature: 36 .6 (C) / 97.9 (F) Weight: 131 lbs 07/18/2015 Blood Pressure 1: 144/78 Code: 8480-6 BMI: 23.7 Code: 49113-9 Heart Rate 1: 84 bpm Height: 5'3" Respiratory Rate: 20 bpm Temperature: 37 .2 (C) / 99.0 (F) Weight: 134 lbs 04/10/2015 Blood Pressure 1: 110/64 Code: 8480-6 Heart Rate 1: 80 bpm Height: Respiratory Rate: 20 bpm Temperature: 37.1 (C) / 98.8 (F) Weight: 03/05/2015 Blood Pressure 1: 136/80 Code: 8480-6 BMI: 23.9 Code: 19977-5 Heart Rate 1: 76 bpm Height: 5'3" Respiratory Rate: 24 bpm Temperature: 37 .0 (C) / 98.6 (F) Weight: 135 lbs 01/30/2015 Blood Pressure 1: 142/80 Code: 8480-6 BMI: 23.0 Code: 30908-5 Heart Rate 1: 96 bpm Height: 5'3" Respiratory Rate: 22 bpm Temperature: 36 .2 (C) / 97.2 (F) Weight: 130 lbs 01/02/2015 Blood Pressure 1: 124/70 Code: 8480-6 BMI: 23.4 Code: 93146-1 Heart Rate 1: 84 bpm Height: 5'3" Respiratory Rate: 24 bpm SpO2: 95% Tempera ture: 36.9 (C) / 98.5 (F) Weight: 132 lbs 10/03/2014 Blood Pressure 1: 106/68 Code: 8480-6 BMI: 22.5 Code: 38352-0 Heart Rate 1: 88 bpm Height: 5'3" Respiratory Rate: 24 bpm Temperature: 37 .0 (C) / 98.6 (F) Weight: 127 lbs 08/27/2014 Blood Pressure 1: 124/68 Code: 8480-6 BMI: 21.1 Code: 38490-3 Heart Rate 1: 88 bpm Height: 5'3" [...] 1: 120/70 Code: 8480-6 BMI: 19.2 Code: 21955-3 Heart Rate 1: 70 bpm Height: 5'4" Respiratory Rate: 20 bpm Temperature: 36 .9 (C) / 98.4 (F) Weight: 112 lbs 06/28/2013 Blood Pressure 1: 10268 Code: 8480-6 BMI: 19.6 Code: 51143-3 Heart Rate 1: 76 bpm Height: 5'4" Respiratory Rate: 20 bpm Temperature: 36 .8 (C) / 98.2 (F) Weight: 114 lbs 05/31/2013 Blood Pressure 1: 106/70 Code: 8480-6 BMI: 18.9 Code: 54685-0 Heart Rate 1: 100 bpm Height: 5'4" Respiratory Rate: 20 bpm Temperature: 36 .4 (C) / 97.6 (F) Weight: 110 lbs 05/03/2013 Blood Pressure 1: 126/70 Code: 8480-6 BMI: 19.1 Code: 51102-0 Heart Rate 1: 88 bpm Height: 5'4" Respiratory Rate: 20 bpm Temperature: 37 .1 (C) / 98.8 (F) Weight: 111 lbs 04/25/2013 Blood Pressure 1: 114/68 Code: 8480-6 BMI: 19.4 Code: 74654-6 Heart Rate 1: 92 bpm Height: 5'4" Respiratory Rate: 24 bpm SpO2: 96% Tempera ture: 37.7 (C) / 99.8 (F) Weight: 113 lbs 03/08/2013 Blood Pressure 1: 9468 Code: 8480-6 BMI: 21.3 C ode: 55825-9 Heart Rate 1: 88 bpm Height: 5'4" Respiratory Rate: 24 bpm Temperature: 37 .0 (C) / 98.6 (F) Weight: 124 lbs 02/07/2013 Blood Pressure 1: 106/64 Code: 8480-6 BMI: 21.8 Code: 74545-3 Heart Rate 1: 84 bpm Height: 5'4" Respiratory Rate: 22 bpm Temperature: 36 .8 (C) / 98.2 (F) Weight: 127 lbs 01/10/2013 Blood Pressure 1: 122/68 Code: 8480-6 BMI: 21.6 Code: 81640-4 Heart Rate 1: 94 bpm Height: 5'4" SpO2: 94% Temperature: 36.7 (C) / 98.1 (F) Weight: 126 lbs 09/28/2012 Blood Pressure 1: 124/78 Code: 8480-6 BMI: 24.9 Code: 52212-2 Heart Rate 1: 92 bpm Height: 5'4" Respiratory Rate: 20 bpm Temperature: 36 .7 (C) / 98.1 (F) Weight: 145 lbs 06/28/2012 Blood Pressure 1: 134/80 Code: 8480-6 BMI: 24.9 Code: 61214-9 Heart Rate 1: 76 bpm Height: 5'4" Respiratory Rate: 20 bpm Temperature: 36 .8 (C) / 98.2 (F) Weight: 145 lbs 05/03/2012 Blood Pressure 1: 108/62 Code: 8480-6 BMI: 25.6 Code: 43854-7 Heart Rate 1: 88 bpm Height: 5'4" Temperature: 36.2 (C) / 97.2 (F) Weight: 149 lbs 03/01/2012 Blood Pressure 1: 124/66 Code: 8480-6 BMI: 25.1 Code: 25670-0 Heart Rate 1: 76 bpm Height: 5'4" Respiratory Rate: 20 bpm Temperature: 36 .6 (C) / 97.9 (F) Weight: 146 lbs 01/26/2012 Blood Pressure 1: 118/82 Code: 8480-6 BMI: 25.1 Code: 64145-8 Heart Rate 1: 74 bpm Height: 5'4" Temperature: 36.8 (C) / 98.2 (F) Weight: 146 lbs 11/03/2011 Blood Pressure 1: 126/80 Code: 8480-6 BMI: 27.3 Code: 34864-8 Heart Rate 1: 72 bpm Height: 5'4" [...] 01/30/2015 1 month follow up 01/02/2015 hospital fwup/o fw up follow up 10/03/2014 1mo fwup [...] up 05/31/2013 sores 05/03/2013 follow up 04/25/2013 [facility] fw pain, generalized 03/08/2013 follow up 02/07/2013 1mo fwup follow up 01/10/2013 follow up 09/28/2012 2mo fwup follow up 06/28/2012 2mo fwup follow up 05/03/2012 follow up 03/01/2012 1mo fwup diabetes mellitus 01/26/2012 follow up 11/03/2011 3mo fwup follow up 08/10/2011 1mo fwup cough 07/15/2011 cough 03/19/2011 follow up 01/28/2011 1mo fwup follow up 12/17/2010 [facility] fwup follow up 2010 2wk fwup arthralgia(s) 10/02/2010 neck pain 09/24/2010 right sided, feels k not in thigh follow up 09/02/2010 2wk fwup back pain 07/14/2010 had epidural beginni ng of Jun, seems to be wearing off the last 3 days follow up 05/07/2010 depression 04/08/2010 savella not helping, wants to retry prozac Encounters Encounter Performer Location Codes Date ([id number]) OFFICE/OUTPATIENT VISIT EST Diagnosis: Chronic pain syndrome[ICD10: G89.4] Diagnosis: Localized edema[ICD10: R60.0] Diagnosis: Chronic obstructive pulmonary disease, unspecified[ICD10: J44.9] Diagnosis: Other fatigue[ICD10: R53.83] Diagnosis: Muscle weakness (generalized)[ICD10: M62.81] Diagnosis: Spinal stenosis, lumbar region with neurogenic claudication[ICD10: M48.062] Vika RENTERIA [employer] [facility] CPT-4: 22131 11/29/2019 ([id number]) OFFICE/OUTPATIENT VISIT EST Diagnosis: Chronic pain syndrome[ICD10: G89.4] Diagnosis: Lumbar degenerative disc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 tonbharath if worsening Recheck tomorrow . Patient states [...] prn breakthrough pain . Discussed that some [place] Bees produc ts are petroleum free If [...]
--- OUTSIDE RECORDS SUMMARY | 2020-04-24 23:08 | XMS REPORT | CCD ---
Author Author Yana Renteria D.O. 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 Name Role Phone Vika Renteria D.O., PP Unavailable CCM Unavailable Summary Purpose Interface Exchange Insurance Providers Payer name Policy type / Coverage type Covered alliance party ID Effective Begin Date Effective End Date [employer] [facility] [place] Medicaid [id number] 2018 U nknown Family History Family History data not found Social History Social History Element Codes Description Effective Dates Marital status Unknown 06/28/[address]: [id number] Currently smokes tobacco 05/2013 Allergies, Adverse Reactions, [...] Start Date Stop Date Status Fill Instructions potassium chloride ER 20 mEq tablet,extended release RxNorm: 609761 TAKE ONE TABLET BY MOUTH DAILY 01/08/2020 07/05/2020 Active ProAir HFA 90 mcg/actuation aerosol inhaler RxNorm: 058593 INHALE ONE PUFF BY MOUTH EVERY 4 HOURS FOR WHEEZING OR FOR SHORTNESS OF BREATH 01/04/2020 No Stop Date Active metformin 500 mg tablet RxNorm: 856648 1 Tablet(s) Oral QD 01/04/20 20 04/02/2020 Active MS Contin 200 mg tablet,extended release RxNorm: 013220 1 Tablet(s) Oral two times a day 01/02/2020 01/31/2020 Active Pulmicort 1 mg/2 mL suspension for nebulization RxNorm: 6168 19 USE ONE VIAL VIA NEBULIZER BY MOUTH TWICE A DAY 12/21/2019 No Stop Date Active furosemide 40 mg tablet RxNorm: 153126 TAKE ONE TABLET BY MOUTH EVERY MORNING NEEDED 12/20/2019 No Stop Date Active levothyroxine 25 mcg tablet RxNorm: 229572 TAKE ONE TAB LET BY MOUTH EVERY MORNING 12/20/2019 No Stop Date Active MS Contin 200 mg tablet,extended release RxNorm: 250285 1 Tablet(s) Oral two times a day 12/05/2019 01/01/2020 Inactive Medrol (Aníbal) 4 mg tablets in a dose pack RxNorm: 851679 6 Tablet(s) Oral QD --then as directed 11/30/2019 12/05/2019 Inactive MS Contin 200 mg tablet,extended release RxNorm: 102379 1 Tablet(s) Oral two times a day 11/29/2019 12/04/2019 Inactive cyclobenzaprine 10 mg tablet RxNorm: 867616 TAKE ONE TA BLET BY MOUTH THREE TIMES A DAY NEEDED 11/21/2019 No Stop Date Active MS Contin 200 mg tablet,extended release RxNorm: 721357 1 Tablet(s) Oral two times a day replaces 100mg dose 11/03/2019 11/02/2019 Inactive MS Contin 200 mg tablet,extended release RxNorm: 836397 1 Tablet(s) Oral two times a day replaces 100mg dose 11/03/2019 11/29/2019 Inactive ferrous sulfate 325 mg (65 mg iron) tablet RxNorm: 604233 1 Tab let(s) Oral QD 10/30/2019 No Stop Date Active MS Contin 100 mg tablet,extended release RxNorm: 865871 1 Table t(s) Oral QD 10/30/2019 10/29/2019 Inactive MS Contin 100 mg tablet,extended release RxNorm: 191573 1 Table t(s) Oral QD 10/30/2019 11/02/2019 Inactive Relistor 150 mg tablet RxNorm: 3420708 TAKE THREE TABLETS BY BENOIT TH DAILY 10/25/2019 No Stop Date Active pantoprazole 40 mg tablet,delayed release RxNorm: 825725 1 Tabl et(s) Oral QD 10/25/2019 No Stop Date Active Minipress 2 mg capsule RxNorm: 184102 1 Capsule(s) Oral QAM and 3 at bedtime 10/25/2019 No Stop Date Active Lancets, Super Thin RxNorm: 1 Unit Dose Miscellaneous QD 9 11/27/2020 Active Cymbalta 60 mg capsule,delayed release RxNorm: 695646 1 Capsule (s) Oral QAM 10/25/2019 No Stop Date Active Cymbalta 30 mg capsule,delayed release RxNorm: 259375 1 Capsule (s) Oral QAM 10/25/2019 No Stop Date Active oxycodone 15 mg tablet RxNorm: 7977116 1 Tablet(s) Oral four times a day as needed for pain 10/25/2019 11/28/2019 Inactive metformin 500 mg tablet RxNorm: 737500 1 Tablet(s) Oral QD 10/25/20 19 01/03/2020 Inactive levothyroxine 25 mcg tablet RxNorm: 116852 1 Tablet(s) Oral QAM 02/201912/19/2019 Inactive levothyroxine 25 mcg tablet RxNorm: 258098 1 Tablet(s) Oral QAM 02/201910/24/2019 Inactive MS Contin 100 mg tablet,extended release RxNorm: 329383 1 Tablet(s) Oral two times a day replaces fentanyl 10/25/2019 10/25/2019 Inactive Premarin 0.45 mg tablet RxNorm: 475509 TAKE ONE TABLET BY MOUTH DAILY 10/24/2019 No Stop Date Active Duragesic 100 mcg/hr transdermal patch RxNorm: 134517 2 Application TD Q48H for pain 10/18/2019 10/24/2019 Inactive gabapentin 300 mg capsule RxNorm: 540031 TAKE ONE CAPSULE BY MO UTH TWICE A DAY 10/16/2019 No Stop Date Active cyclobenzaprine 10 mg tablet RxNorm: 424849 TAKE ONE TA BLET BY MOUTH THREE TIMES A DAY NEEDED 09/27/2019 11/20/2019 Inactive Relistor 150 mg tablet RxNorm: 9436618 TAKE THREE TABLETS BY BENOIT TH DAILY 09/25/2019 10/24/2019 Inactive ProAir HFA 90 mcg/actuation aerosol inhaler RxNorm: 801484 INHALE ONE PUFF BY MOUTH EVERY 4 HOURS FOR WHEEZING OR FOR SHORTNESS OF BREATH 09/25/2019 01/03/2020 Inactive furosemide 40 mg tablet RxNorm: 858108 1 Tablet(s) Oral QAM as needed 09/25/2019 09/25/2019 Inactive oxycodone 15 mg tablet RxNorm: 7015024 1 Tablet(s) PO QID as nee ded for pain 09/21/2019 10/24/2019 Inactive Duragesic 100 mcg/hr transdermal patch RxNorm: 627532 2 Application TD Q48H for pain 09/19/2019 10/17/2019 Inactive Daliresp 500 mcg tablet RxNorm: 6343133 1 Tablet(s) Oral QD 019 03/08/2020 Active Relistor 150 mg tablet RxNorm: 2013977 TAKE THREE TABLETS BY BENOIT TH DAILY 07/25/2019 07/30/2019 Inactive cyclobenzaprine 10 mg tablet RxNorm: 341105 TAKE ONE TA BLET BY MOUTH THREE TIMES A DAY NEEDED 07/25/2019 09/22/2019 Inactive potassium chloride ER 20 mEq tablet,extended release RxNorm: 232581 TAKE ONE TABLET BY MOUTH DAILY 07/25/2019 01/07/2020 Inactive fluoxetine 40 mg capsule RxNorm: 918519 TAKE ONE CAPSULE BY BENOIT TH EVERY MORNING 07/11/2019 10/24/2019 Inactive Medrol (Aníbal) 4 mg tablets in a dose pack RxNorm: 641984 6 Tablet(s) PO QD --then as directed 07/10/2019 07/15/2019 Inactive omeprazole 40 mg capsule,delayed release RxNorm: 473876 1 Capsule(s) PO QD for stomach TAKE ONE CAPSULE BY MOUTH DAILY 07/10/2019 10/24/2019 Inactive Augmentin 875 mg-125 mg tablet RxNorm: 257743 1 Tablet(s) PO BID 07/16/2019 Inactive Trulicity 0.75 mg/0.5 mL subcutaneous pen injector RxNorm: 1 750531 0.75 Milliliter(s) SQ weekly 07/05/2019 10/24/2019 Inactive Compazine 10 mg tablet RxNorm: 592172 TAKE ONE TABLET B Y MOUTH FOUR TIMES A DAY NEEDED FOR NAUSEA 06/20/2019 07/19/2019 Inactive ProAir HFA 90 mcg/actuation aerosol inhaler RxNorm: 241611 INHALE ONE PUFF BY MOUTH EVERY 4 HOURS FOR WHEEZING OR FOR SHORTNESS OF BREATH 06/20/2019 06/23/2019 Inactive Daliresp 500 mcg tablet RxNorm: 5097882 TAKE ONE TABLET BY MOUTH DAILY 06/12/2019 09/10/2019 Inactive vwbrkoqb-twljfctnd-hurwabzli 3.5 mg/mL-10,000 unit/mL- 1 % ear solution RxNorm: 769157 4 Drop(s) otic (ear) TID to left ear 06/05/2019 10/24/2019 Inac tive furosemide 40 mg tablet RxNorm: 976969 TAKE ONE TABLET BY MOUTH EVERY MORNING 05/26/2019 07/09/2019 Inactive Duragesic 100 mcg/hr transdermal patch RxNorm: 594270 2 Application TD Q48H for pain 05/16/2019 06/14/2019 Inactive oxycodone 15 mg tablet RxNorm: 4588647 1 Tablet(s) PO QID as nee ded for pain 05/10/2019 09/20/2019 Inactive doxycycline hyclate 100 mg capsule RxNorm: 2573461 1 Capsule(s) PO BID 05/03/2019 05/12/2019 Inactive prednisone 20 mg tablet RxNorm: 161437 1 Tablet(s) PO T ID for 3 days then 1 po BID for 3 days then one daily for 3 days 05/03/2019 07/11/2019 Inactiv e Ozempic 0.25 mg or 0.5 mg (2 mg/1.5 mL) subcutaneous p en injector RxNorm: 4060068 0.5 Milligram(s) SQ QW 05/03/2019 07/09/2019 Inactive fluconazole 100 mg tablet RxNorm: 706865 1 Tablet(s) PO QD 05/03/2005/07/2019 Inactive Premarin 0.45 mg tablet RxNorm: 811728 TAKE ONE TABLET BY MOUTH DAILY 05/03/2019 10/23/2019 Inactive potassium chloride ER 20 mEq tablet,extended release RxNorm: 007796 1 Tablet(s) PO QD 04/27/2019 07/25/2019 Inactive potassium chloride ER 20 mEq tablet,extended release RxNorm: 633384 1 Tablet(s) PO QD 04/25/2019 04/26/2019 Inactive Compazine 10 mg tablet RxNorm: 937734 1 Tablet(s) PO QID as nee ded for nausea 04/25/2019 05/04/2019 Inactive ProAir HFA 90 mcg/actuation aerosol inhaler RxNorm: 149162 INHALE ONE PUFF BY MOUTH EVERY 4 HOURS FOR WHEEZING OR FOR SHORTNESS OF BREATH 04/12/2019 06/10/2019 Inactive Medrol (Aníbal) 4 mg tablets in a dose pack RxNorm: 763846 6 Tablet(s) PO QD --then as directed 04/11/2019 04/16/2019 Inactive Symbicort 160 mcg-4.5 mcg/actuation HFA aerosol inhaler RxNo rm: 9527000 2 Puff(s) INH BID 04/10/2019 10/06/2019 Inactive levothyroxine 50 mcg tablet RxNorm: 305929 1 Tablet(s) PO QD 201810/24/2019 Inactive gabapentin 300 mg capsule RxNorm: 777712 1 Capsule(s) PO BID 201810/02/2019 Inactive Symbicort 160 mcg-4.5 mcg/actuation HFA aerosol inhaler RxNo rm: 5096192 2 Puff(s) INH BID 04/06/2019 04/09/2019 Inactive oxycodone 15 mg tablet RxNorm: 0397297 1 Tablet(s) PO QID as nee ded for pain 04/05/2019 05/09/2019 Inactive levothyroxine 50 mcg tablet RxNorm: 779749 1 Tablet(s) PO QD 201804/09/2019 Inactive furosemide 40 mg tablet RxNorm: 047838 TAKE ONE TABLET BY MOUTH EVERY MORNING 03/21/2019 04/19/2019 Inactive levothyroxine 50 mcg tablet RxNorm: 198272 TAKE ONE TABLET BY M OUTH DAILY 03/21/2019 03/27/2019 Inactive Duragesic 100 mcg/hr transdermal patch RxNorm: 292664 2 Application TD Q48H for pain 03/13/2019 04/11/2019 Inactive oxycodone 15 mg tablet RxNorm: 8256811 1 Tablet(s) PO QID as nee ded for pain 03/06/2019 04/04/2019 Inactive Relistor 150 mg tablet RxNorm: 6402145 3 Tablet(s) PO QD 02/28/2019 0 05/28/2019 Inactive cyclobenzaprine 10 mg tablet RxNorm: 015781 1 Tablet(s) PO TID as needed 02/28/2019 05/28/2019 Inactive phentermine 37.5 mg tablet RxNorm: 569816 1 Tablet(s) PO QAM 201803/15/2019 Inactive Duragesic 100 mcg/hr transdermal patch RxNorm: 743143 2 Application TD Q48H for pain 02/09/2019 03/10/2019 Inactive Daliresp 500 mcg tablet RxNorm: 0775916 TAKE ONE TABLET BY MOUTH DAILY 01/31/2019 05/30/2019 Inactive Premarin 0.45 mg tablet RxNorm: 204352 1 Tablet(s) PO QD 01/31/2019 0 04/30/2019 Inactive fluoxetine 40 mg capsule RxNorm: 381031 Capsule(s) TAKE ONE CAPSULE BY MOUTH EVERY MORNING 01/31/2019 04/30/2019 Inactive levothyroxine 50 mcg tablet RxNorm: 173550 1 Tablet(s) PO QD 201804/10/2019 Inactive follow up in 3 weeks levothyroxine 50 mcg tablet RxNorm: 372465 1 Tablet(s) PO QD 201801/25/2019 Inactive follow up in 3 weeks potassium chloride ER 20 mEq tablet,extended release RxNorm: 885380 2 Tablet(s) PO BID 01/23/2019 01/08/2020 Inactive Synthroid 50 mcg tablet RxNorm: 991917 TAKE ONE TABLET BY MOUTH DAILY 01/16/2019 10/24/2019 Inactive potassium chloride ER 20 mEq tablet,extended release RxNorm: 583368 2 Tablet(s) PO BID 01/04/2019 01/22/2019 Inactive ProAir HFA 90 mcg/actuation aerosol inhaler RxNorm: 254060 INHALE ONE PUFF BY MOUTH EVERY 4 HOURS FOR WHEEZING OR SHORTNESS OF BREATH 01/04/201902/20 Inactive Request already responded to by other me ans (e.g. phone or fax) ProAir HFA 90 mcg/actuation aerosol inhaler RxNorm: 7046053 INHALE ONE PUFF BY MOUTH EVERY 4 HOURS FOR WHEEZING OR SHORTNESS OF BREATH 01/02/201912/23 Inactive gabapentin 300 mg capsule RxNorm: 800226 TAKE ONE CAPSULE BY MO UTH TWICE A DAY 12/30/2018 04/06/2019 Inactive furosemide 40 mg tablet RxNorm: 361487 1 Tablet(s) PO QAM 12/26/2018 02/23/2019 Inactive Compazine 10 mg tablet RxNorm: 081420 1 Tablet(s) PO QID as nee ded for nausea 12/07/2018 12/16/2018 Inactive metolazone 2.5 mg tablet RxNorm: 263291 TAKE ONE TABLET BY MOUT H EVERY MORNING 12/05/2018 01/03/2019 Inactive metformin ER 500 mg tablet,extended release 24 hr RxNorm: 86 0975 TAKE ONE TABLET BY MOUTH DAILY 12/05/2018 01/04/2020 Inactive Synthroid 50 mcg tablet RxNorm: 428634 1 Tablet(s) PO QD 11/25/2018 0 01/03/2019 Inactive DC any other synthroid strengths. Should be 50mcg only cyclobenzaprine 10 mg tablet RxNorm: 708697 TAKE ONE TA BLET BY MOUTH THREE TIMES A DAY NEEDED 11/09/2018 02/06/2019 Inactive metolazone 2.5 mg tablet RxNorm: 621044 1 Tablet(s) PO QAM repl aces 5mg dose 11/02/2018 12/01/2018 Inactive potassium chloride ER 20 mEq tablet,extended release RxNorm: 881760 2 Tablet(s) PO QD 2018 01/02/2019 Inactive Compazine 10 mg tablet RxNorm: 391849 1 Tablet(s) PO QID as nee ded for nausea 10/18/2018 12/07/2018 Inactive furosemide 40 mg tablet RxNorm: 249339 1 Tablet(s) PO QAM 10/12/2018 12/10/2018 Inactive ondansetron 8 mg disintegrating tablet RxNorm: 293563 1 Tablet(s) PO Q6H as needed 10/11/2018 10/17/2018 Inactive scopolamine 1 mg over 3 days transdermal patch RxNorm: 16143 2 1 Application TD behind ear. Take off after three days 10/11/2018 01/02/2019 Inactive furosemide 40 mg tablet RxNorm: 116023 1 Tablet(s) PO QAM 10/10/2018 12/26/2018 Inactive metolazone 5 mg tablet RxNorm: 229851 1 Tablet(s) PO QAM 10/06/2018 1 01/03/2018 Inactive metolazone 5 mg tablet RxNorm: 588248 1 Tablet(s) PO QAM 10/06/2018 1 12/05/2017 Inactive Xtampza ER 36 mg capsule sprinkle RxNorm: 7667913 1 Capsule(s) P O BID 10/05/2018 01/02/2019 Inactive Xtampza ER 36 mg capsule sprinkle RxNorm: 8869644 1 Capsule(s) P O BID 10/05/2018 02/12/2019 Inactive omeprazole 40 mg capsule,delayed release RxNorm: 271393 TAKE ONE CAPSULE BY MOUTH DAILY 10/03/2018 12/31/2018 Inactive Duragesic 100 mcg/hr transdermal patch RxNorm: 530404 2 Application TD Q48H for pain 09/30/2018 10/29/2018 Inactive Synthroid 50 mcg tablet RxNorm: 165862 1 Tablet(s) PO QD 09/29/2018 0 11/25/2018 Inactive DC any other synthroid strengths. Should be 50mcg only Synthroid 50 mcg tablet RxNorm: 414598 1 Tablet(s) PO QD 09/29/2018 1 11/28/2017 Inactive furosemide 40 mg tablet RxNorm: 809441 2 Tablet(s) PO Q AM for 1 week then every other day for 2 weeks 09/27/2018 10/12/2018 Inactive fluoxetine 40 mg capsule RxNorm: 131596 2 Capsule(s) PO QD 09/27/20 18 10/17/2018 Inactive potassium chloride ER 20 mEq tablet,extended release RxNorm: 896923 2 Tablet(s) PO QD for 1 week then every other day for 2 weeks 09/27/2018 2018 Inactive ProAir HFA 90 mcg/actuation aerosol inhaler RxNorm: 7510112 INHALE ONE PUFF BY MOUTH EVERY 4 HOURS FOR WHEEZING OR SHORTNESS OF BREATH 09/26/201811/23 Inactive Synthroid 75 mcg tablet RxNorm: 104512 1 Tablet(s) PO QD 09/09/2018 1 Inactive Synthroid 75 mcg tablet RxNorm: 555309 1 Tablet(s) PO QD 09/09/201811/28/2017 Inactive furosemide 40 mg tablet RxNorm: 255527 1 Tablet(s) PO QD 09/06/2018 1 Inactive potassium chloride ER 20 mEq tablet,extended release RxNorm: 551146 1 Tablet(s) PO QD 09/06/2018 09/19/2018 Inactive Duragesic 100 mcg/hr transdermal patch RxNorm: 322740 2 Application TD Q48H for pain 08/30/2018 09/28/2018 Inactive gabapentin 300 mg capsule RxNorm: 599857 TAKE ONE CAPSULE BY [facility] TWICE A DAY 08/23/2018 12/20/2018 Inactive Daliresp 500 mcg tablet RxNorm: 2183534 TAKE ONE TABLET BY MOUTH DAILY 08/23/2018 01/19/2019 Inactive Pulmicort 1 mg/2 mL suspension for nebulization RxNorm: 6168 19 USE ONE VIAL VIA NEBULIZER BY MOUTH TWICE A DAY 08/23/2018 07/11/2019 Inactive Synthroid 88 mcg tablet RxNorm: 215825 1 Tablet(s) PO QD 08/19/2018 1 Inactive Medrol (Aníbal) 4 mg tablets in a dose pack RxNorm: 808587 Tablet(s) PO take as directed 08/16/2018 09/05/2018 Inactive Relistor 150 mg tablet RxNorm: 4655287 3 Tablet(s) PO QD 08/16/2018 1 Inactive Zithromax Z-Aníbal 250 mg tablet RxNorm: 037218 Tablet(s) PO take as directed 08/16/2018 09/05/2018 Inactive cyclobenzaprine 10 mg tablet RxNorm: 774802 1 Tablet(s) PO TID as needed 08/16/2018 11/08/2018 Inactive Synthroid 88 mcg tablet RxNorm: 932102 1 Tablet(s) PO Q D NEEDS UPDATED LABS BEFORE FURTHER REFILLS 08/08/2018 08/19/2018 Inactive Premarin 0.45 mg tablet RxNorm: 686572 1 Tablet(s) PO QD 08/03/2018 0 01/31/2019 Inactive fluoxetine 20 mg capsule RxNorm: 531496 TAKE ONE CAPSULE BY BENOIT TH DAILY 08/03/2018 09/26/2018 Inactive Xtampza ER 36 mg capsule sprinkle RxNorm: 3914871 1 Capsule(s) P O BID 08/03/2018 09/01/2018 Inactive metformin ER 500 mg tablet,extended release 24 hr RxNorm: 86 0975 1 Tablet(s) PO QD 08/03/2018 10/31/2018 Inactive Symbicort 160 mcg-4.5 mcg/actuation HFA aerosol inhaler RxNo rm: 5786144 2 Puff(s) INH BID 08/03/2018 01/29/2019 Inactive Duragesic 100 mcg/hr transdermal patch RxNorm: 189963 2 Application TD Q48H for pain 07/29/2018 08/27/2018 Inactive ProAir HFA 90 mcg/actuation aerosol inhaler RxNorm: 513670 INHALE TWO PUFFS BY MOUTH EVERY 4 HOURS FOR WHEEZING OR SHORTNESS OF BREATH 07/27/201802/2018 Inactive Relistor 150 mg tablet RxNorm: 5410024 3 Tablet(s) PO QD 07/20/2018 0 08/15/2018 Inactive metformin ER 500 mg tablet,extended release 24 hr RxNorm: 86 0975 TAKE ONE TABLET BY MOUTH DAILY 07/08/2018 08/02/2018 Inactive fluoxetine 40 mg capsule RxNorm: 423997 TAKE ONE CAPSULE BY BENOIT TH EVERY MORNING 07/08/2018 10/05/2018 Inactive Xtampza ER 18 mg capsule sprinkle RxNorm: 4933525 1 Capsule(s) P O BID 07/08/2018 08/02/2018 Inactive Relistor 150 mg tablet RxNorm: 2024779 3 Tablet(s) PO QD 07/08/2018 0 07/12/2018 Inactive Synthroid 88 mcg tablet RxNorm: 549614 1 Tablet(s) PO Q D NEEDS UPDATED LABS BEFORE FURTHER REFILLS 06/23/2018 07/07/2018 Inactive fluoxetine 40 mg capsule RxNorm: 651448 TAKE ONE CAPSULE BY BENOIT EVERY MORNING 06/15/2018 09/26/2018 Inactive orphenadrine citrate ER 100 mg tablet,extended release RxNor m: 657012 TAKE ONE TABLET BY MOUTH TWICE A DAY FOR MUSCLE SPASM 06/15/2018 08/15/2018 Renu ctive Duragesic 100 mcg/hr transdermal patch RxNorm: 786591 2 Application TD Q48H for pain 05/30/2018 06/28/2018 Inactive ProAir HFA 90 mcg/actuation aerosol inhaler RxNorm: 978008 INHALE TWO PUFFS BY MOUTH EVERY 4 HOURS FOR WHEEZING OR SHORTNESS OF BREATH 05/19/201803/2018 Inactive Chantix Continuing Month Box 1 mg tablet RxNorm: 278308 TAKE ONE TABLET BY MOUTH TWICE A DAY 05/19/2018 08/15/2018 Inactive oxycodone 10 mg tablet RxNorm: 7412677 1-2 Tablet(s) PO QID as n eeded for pain 05/19/2018 07/07/2018 Inactive gabapentin 300 mg capsule RxNorm: 466414 TAKE ONE CAPSULE BY [facility] TWICE A DAY 05/18/2018 07/16/2018 Inactive ProAir HFA 90 mcg/actuation aerosol inhaler RxNorm: 787497 INHALE TWO PUFFS BY MOUTH EVERY 4 HOURS FOR WHEEZING OR SHORTNESS OF BREATH 05/04/201804/23 Inactive Augmentin 500 mg-125 mg tablet RxNorm: 949580 1 Tablet(s) PO BID 05/03/2018 Inactive oxycodone 10 mg tablet RxNorm: 4308146 1-2 Tablet(s) PO QID as n eeded for pain 04/21/2018 05/18/2018 Inactive Synthroid 88 mcg tablet RxNorm: 962698 1 Tablet(s) PO QD 04/15/2018 0 08/08/2018 Inactive Symbicort 160 mcg-4.5 mcg/actuation HFA aerosol inhaler RxNo rm: 2771704 2 Puff(s) INH BID 04/15/2018 04/10/2019 Inactive Premarin 0.45 mg tablet RxNorm: 854922 1 Tablet(s) PO QD 04/15/2018 0 08/03/2018 Inactive ProAir HFA 90 mcg/actuation aerosol inhaler RxNorm: 056462 2 Puff(s) INH Q4H prn for wheezing or shortness of breath 04/15/2018 05/03/2018 Inactive metformin ER 500 mg tablet,extended release 24 hr RxNorm: 86 0975 1 Tablet(s) PO QD 04/11/2018 07/07/2018 Inactive omeprazole 40 mg capsule,delayed release RxNorm: 341039 TAKE ONE CAPSULE BY MOUTH DAILY 04/10/2018 06/08/2018 Inactive Synthroid 88 mcg tablet RxNorm: 433563 1 Tablet(s) PO QD 04/04/2018 0 04/14/2018 Inactive Synthroid 88 mcg tablet RxNorm: 193006 1 Tablet(s) PO QD 04/04/2018 0 04/03/2018 Inactive orphenadrine citrate ER 100 mg tablet,extended release RxNor m: 445873 1 Tablet(s) PO BID for muscle spasm 04/04/2018 05/03/2018 Inactive metformin ER 500 mg tablet,extended release 24 hr RxNorm: 86 0975 1 Tablet(s) PO QD NEEDS UPDATED LABS 03/31/2018 04/11/2018 Inactive doxycycline hyclate 100 mg capsule RxNorm: 9520432 1 Capsule(s) PO BID 03/31/2018 04/09/2018 Inactive prednisone 20 mg tablet RxNorm: 515214 3 Tablet(s) PO T ID for 3 days then 1 po BID for 3 days then one daily for 3 days 03/31/2018 07/06/2018 Inactiv e Chantix Continuing Month Box 1 mg tablet RxNorm: 319369 TAKE ONE TABLET BY MOUTH TWICE A DAY 03/25/2018 03/30/2018 Inactive oxycodone 10 mg tablet RxNorm: 7332848 1-2 Tablet(s) PO QID as n eeded for pain 03/21/2018 04/20/2018 Inactive Daliresp 500 mcg tablet RxNorm: 9574220 1 Tablet(s) PO QD 03/15/2018 08/22/2018 Inactive metformin ER 500 mg tablet,extended release 24 hr RxNorm: 86 0975 1 Tablet(s) PO QD NEEDS UPDATED LABS 03/14/2018 03/31/2018 Inactive nystatin 100,000 unit/mL oral suspension RxNorm: 930799 5 Chio liter(s) PO QID 03/02/2018 03/15/2018 Inactive nystatin 100,000 unit/mL oral suspension RxNorm: 359059 5 Chio liter(s) PO QID 03/02/2018 03/01/2018 Inactive oxycodone 10 mg tablet RxNorm: 7690238 1-2 Tablet(s) PO QID as n eeded for pain 02/16/2018 03/20/2018 Inactive fluoxetine 20 mg capsule RxNorm: 146128 1 Capsule(s) PO QD 02/15/20 18 08/02/2018 Inactive metformin ER 500 mg tablet,extended release 24 hr RxNorm: 86 0975 1 Tablet(s) PO QD Needs updated labs 02/14/2018 03/14/2018 Inactive cefdinir 300 mg capsule RxNorm: 330723 1 Capsule(s) PO BID 01/27/20 18 02/04/2018 Inactive orphenadrine citrate ER 100 mg tablet,extended release RxNor m: 536998 1 Tablet(s) PO BID for muscle spasm 01/26/2018 04/04/2018 Inactive gabapentin 300 mg capsule RxNorm: 302119 1 Capsule(s) PO BID 201704/17/2018 Inactive oxycodone 10 mg tablet RxNorm: 1062944 1-2 Tablet(s) PO QID as n eeded for pain 01/17/2018 02/15/2018 Inactive Duragesic 100 mcg/hr transdermal patch RxNorm: 876238 2 Application TD Q48H for pain 01/17/2018 02/15/2018 Inactive gabapentin 300 mg capsule RxNorm: 642663 TAKE ONE CAPSULE BY MO UTH TWICE A DAY 12/20/2017 01/18/2018 Inactive fluoxetine 40 mg capsule RxNorm: 353425 TAKE ONE CAPSULE BY BENOIT TH EVERY MORNING 12/15/2017 03/14/2018 Inactive OneTouch Ultra Test strips RxNorm: TEST DAILY 11/04/2017 02/01/2018 Inactive gabapentin 300 mg capsule RxNorm: 160909 1 Capsule(s) P O TID replaces BID dosing 10/26/2017 02/22/2018 Inactive oxycodone 10 mg tablet RxNorm: 2636858 1-2 Tablet(s) PO QID as n eeded for pain 10/18/2017 01/16/2018 Inactive Duragesic 100 mcg/hr transdermal patch RxNorm: 954527 2 Application TD Q48H for pain 10/18/2017 11/16/2017 Inactive gabapentin 300 mg capsule RxNorm: 607426 1 Capsule(s) PO BID 201610/25/2017 Inactive Abilify 5 mg tablet RxNorm: 539887 1 Tablet(s) PO QAM 09/23/201702/2017 Inactive gabapentin 300 mg capsule RxNorm: 541552 1 Capsule(s) PO BID 201610/17/2017 Inactive oxycodone 10 mg tablet RxNorm: 4193412 1-2 Tablet(s) PO QID as n eeded for pain 09/15/2017 10/17/2017 Inactive Duragesic 100 mcg/hr transdermal patch RxNorm: 728701 2 Application TD Q48H for pain 09/15/2017 10/14/2017 Inactive Duragesic 100 mcg/hr transdermal patch RxNorm: 102030 2 Application TD Q48H for pain 09/15/2017 10/24/2019 Inactive oxycodone 10 mg tablet RxNorm: 7099142 1-2 Tablet(s) PO QID as n eeded for pain 09/15/2017 08/15/2018 Inactive Daliresp 500 mcg tablet RxNorm: 1787857 1 Tablet(s) PO QD 09/06/2017 03/15/2018 Inactive Ventolin HFA 90 mcg/actuation aerosol inhaler RxNorm: 894213 2 Puff(s) INH Q4H as needed 09/02/2017 05/19/2018 Inactive oxycodone 10 mg tablet RxNorm: 1507858 1-2 Tablet(s) PO QID as n eeded for pain 08/17/2017 09/14/2017 Inactive Duragesic 100 mcg/hr transdermal patch RxNorm: 286261 2 Application TD Q48H for pain 08/17/2017 09/14/2017 Inactive fluoxetine 40 mg capsule RxNorm: 488215 Capsule(s) TAKE ONE CAPSULE BY MOUTH EVERY MORNING 08/17/2017 12/14/2017 Inactive Pulmicort 1 mg/2 mL suspension for nebulization RxNorm: 6168 19 1 Unit Dose INH BID Dx: COPD (J44.9) 08/16/2017 08/22/2018 Inactive gabapentin 300 mg capsule RxNorm: 140486 1 Capsule(s) PO QHS 201610/18/2017 Inactive fluoxetine 20 mg capsule RxNorm: 201319 1 Capsule(s) PO QD 08/12/2002/14/2018 Inactive Abilify 2 mg tablet RxNorm: 607443 1 Tablet(s) PO QD TA KE ONE TABLET BY MOUTH DAILY 08/12/2017 10/25/2017 Inactive metformin ER 500 mg tablet,extended release 24 hr RxNorm: 86 0975 1 Tablet(s) PO QD 08/10/2017 02/14/2018 Inactive Synthroid 112 mcg tablet RxNorm: 651363 1 Tablet(s) PO QD 08/10/2017 04/15/2018 Inactive oxycodone 10 mg tablet RxNorm: 4411736 1-2 Tablet(s) PO QID as n eeded for pain 07/19/2017 08/16/2017 Inactive Duragesic 100 mcg/hr transdermal patch RxNorm: 277808 2 Application TD Q48H for pain 07/19/2017 08/16/2017 Inactive Ventolin HFA 90 mcg/actuation aerosol inhaler RxNorm: 869359 2 Puff(s) INH Q4H as needed 07/12/2017 09/02/2017 Inactive Abilify 2 mg tablet RxNorm: 416513 1 Tablet(s) PO QD TA KE ONE TABLET BY MOUTH DAILY 07/06/2017 08/11/2017 Inactive gabapentin 800 mg tablet RxNorm: 744407 1 Tablet(s) PO TID 06/22/2007/05/2017 Inactive Chantix Starting Month Box 0.5 mg (11)-1 mg (42) table ts in dose pack RxNorm: 504796 TAKE BY MOUTH INSTRUCTED - PER PACKAGE INSTRUCTIONS 06/0707/04/2017 Inactive Ventolin HFA 90 mcg/actuation aerosol inhaler RxNorm: 964042 2 Puff(s) INH Q4H as needed 05/26/2017 07/12/2017 Inactive Duragesic 100 mcg/hr transdermal patch RxNorm: 617990 2 Application TD Q48H for pain 05/19/2017 06/17/2017 Inactive oxycodone 10 mg tablet RxNorm: 3597923 1-2 Tablet(s) PO QID as n eeded for pain 05/19/2017 07/18/2017 Inactive Abilify 2 mg tablet RxNorm: 219246 TAKE ONE TABLET BY MOUTH DAILY 0 05/10/2017 07/05/2017 Inactive Synthroid 112 mcg tablet RxNorm: 318186 1 Tablet(s) PO QD 05/06/2017 08/10/2017 Inactive metformin ER 500 mg tablet,extended release 24 hr RxNorm: 86 0975 1 Tablet(s) PO QD 05/06/2017 08/10/2017 Inactive Topamax 100 mg tablet RxNorm: 997577 1 Tablet(s) PO QHS 05/06/2017 Inactive Premarin 0.45 mg tablet RxNorm: 298059 1 Tablet(s) PO QD 05/06/2017 0 04/15/2018 Inactive orphenadrine citrate ER 100 mg tablet,extended release RxNor m: 427042 1 Tablet(s) PO TID for muscle spasm--replaces methocarbamol 04/29/2017 Inactive oxycodone 10 mg tablet RxNorm: 9778133 1-2 Tablet(s) PO QID as n eeded for pain 04/21/2017 05/18/2017 Inactive Duragesic 100 mcg/hr transdermal patch RxNorm: 549834 2 Application TD Q48H for pain 04/21/2017 05/18/2017 Inactive fluoxetine 40 mg capsule RxNorm: 245614 Capsule(s) TAKE ONE CAPSULE BY MOUTH EVERY MORNING 04/20/2017 08/17/2017 Inactive Ventolin HFA 90 mcg/actuation aerosol inhaler RxNorm: 675196 2 Puff(s) INH Q4H as needed 04/05/2017 05/26/2017 Inactive Symbicort 160 mcg-4.5 mcg/actuation HFA aerosol inhaler RxNo rm: 4297022 2 Puff(s) INH BID 03/30/2017 04/15/2018 Inactive Spiriva with HandiHaler 18 mcg and inhalation capsules RxNor m: 338437 1 Capsule(s) INH QD USING HANDIHALER 03/30/2017 02/12/2019 Inactive Duragesic 100 mcg/hr transdermal patch RxNorm: 772736 2 Application TD Q48H for pain 03/18/2017 04/16/2017 Inactive oxycodone 10 mg tablet RxNorm: 7120206 1-2 Tablet(s) PO QID as n eeded for pain 03/18/2017 04/20/2017 Inactive metformin ER 500 mg tablet,extended release 24 hr RxNorm: 86 0975 Tablet(s) TAKE ONE TABLET BY MOUTH DAILY 03/01/2017 05/06/2017 Inactive Premarin 0.45 mg tablet RxNorm: 220514 Tablet(s) TAKE ONE TABLE T BY MOUTH DAILY 03/01/2017 05/06/2017 Inactive Synthroid 112 mcg tablet RxNorm: 861164 Tablet(s) TAKE ONE TABLET BY MOUTH DAILY 03/01/2017 05/06/2017 Inactive Daliresp 500 mcg tablet RxNorm: 9521448 1 Tablet(s) PO QD 03/01/2017 09/06/2017 Inactive 16.2 mg-0.1037 mg-0.0194 mg tablet RxNorm: 5270478 Tablet(s) PO PRN for gas and cramping 02/23/2017 04/28/2017 Inactive TAKE TWO TABLET S BY MOUTH THREE TIMES A DAY NEEDED FOR GAS AND CRAMPING gabapentin 800 mg tablet RxNorm: 754650 1 Tablet(s) PO TID repl aces 600mg 02/23/2017 04/28/2017 Inactive Duragesic 100 mcg/hr transdermal patch RxNorm: 767409 2 Application TD Q48H for pain 02/17/2017 03/17/2017 Inactive fluoxetine 20 mg capsule RxNorm: 885786 1 Capsule(s) PO QD 02/18/20 17 08/12/2017 Inactive oxycodone 20 mg tablet RxNorm: 3866832 1 Tablet(s) PO QID as nee ded for pain 02/17/2017 03/17/2017 Inactive Ventolin HFA 90 mcg/actuation aerosol inhaler RxNorm: 531223 INHALE TWO PUFFS BY MOUTH EVERY 4 HOURS NEEDED 02/15/2017 04/05/2017 Inactive Silvadene 1 % topical cream RxNorm: 237678 1 Application TOP BI D to burn area 02/01/2017 09/22/2017 Inactive Topamax 100 mg tablet RxNorm: 707620 TAKE ONE TABLET BY MOUTH EVERY NIGHT AT BEDTIME 01/29/2017 05/06/2017 Inactive Chantix Starting Month Box 0.5 mg (11)-1 mg (42) table ts in dose pack RxNorm: 543477 Tablet(s) PO as directed 01/29/2017 06/01/2017 Inactive Abilify 2 mg tablet RxNorm: 327291 TAKE ONE TABLET BY MOUTH DAILY 0 01/26/2017 04/25/2017 Inactive Chantix Starting Month Box 0.5 mg (11)-1 mg (42) table ts in dose pack RxNorm: 701537 Tablet(s) PO as directed 01/20/2017 01/28/2017 Inactive gabapentin 600 mg tablet RxNorm: 857609 1 Tablet(s) PO TID 01/21/20 17 02/22/2017 Inactive Chantix Continuing Month Box 1 mg tablet RxNorm: 464159 1 Table t(s) PO BID 12/31/2016 06/01/2017 Inactive Spiriva with HandiHaler 18 mcg and inhalation capsules RxNor m: 823093 INHALE THE ENTIRE CONTENTS OF 1 CAPSULE ONCE A DAY USING HANDIHALER 12/31/201607/2017 Inactive Synthroid 112 mcg tablet RxNorm: 442686 TAKE ONE TABLET BY MOUT H DAILY 12/30/2016 03/01/2017 Inactive metformin ER 500 mg tablet,extended release 24 hr RxNorm: 86 0975 TAKE ONE TABLET BY MOUTH DAILY 12/30/2016 03/01/2017 Inactive Premarin 0.45 mg tablet RxNorm: 579891 TAKE ONE TABLET BY MOUTH DAILY 12/30/2016 03/01/2017 Inactive omeprazole 40 mg capsule,delayed release RxNorm: 338217 TAKE ONE CAPSULE BY MOUTH DAILY 12/30/2016 01/25/2018 Inactive Ventolin HFA 90 mcg/actuation aerosol inhaler RxNorm: 691034 INHALE TWO PUFFS BY MOUTH EVERY 4 HOURS NEEDED 12/28/2016 02/13/2017 Inactive fluoxetine 40 mg capsule RxNorm: 621789 TAKE ONE CAPSULE BY BENOIT TH EVERY MORNING 12/15/2016 04/20/2017 Inactive Chantix Continuing Month Box 1 mg tablet RxNorm: 138532 TAKE ONE TABLET BY MOUTH TWICE A DAY 12/04/2016 12/31/2016 Inactive doxycycline hyclate 100 mg capsule RxNorm: 3424023 1 Capsule(s) PO BID 12/01/2016 12/07/2016 Inactive Levaquin 750 mg tablet RxNorm: 080061 1 Tablet(s) PO QD 12/01/2016 Inactive Abilify 2 mg tablet RxNorm: 184559 TAKE ONE TABLET BY MOUTH DAILY 0 11/25/2016 11/30/2016 Inactive Ventolin HFA 90 mcg/actuation aerosol inhaler RxNorm: 199552 INHALE TWO PUFFS BY MOUTH EVERY 4 HOURS NEEDED 11/02/2016 12/19/2016 Inactive Chantix Continuing Month Box 1 mg tablet RxNorm: 541547 Tablet(s) PO as directed 10/30/2016 12/03/2016 Inactive Symbicort 160 mcg-4.5 mcg/actuation HFA aerosol inhaler RxNo rm: 7119353 INHALE TWO PUFFS TWO TIMES A DAY 10/30/2016 03/30/2017 Inactive Abilify 2 mg tablet RxNorm: 301448 1 Tablet(s) PO QD 10/27/201611/24 Inactive amoxicillin 500 mg capsule RxNorm: 864144 1 Capsule(s) PO TID 10/1410/23/2016 Inactive amoxicillin 500 mg capsule RxNorm: 749615 1 Capsule(s) PO TID 10/1410/13/2016 Inactive Synthroid 112 mcg tablet RxNorm: 698072 TAKE ONE TABLET BY MOUT H DAILY 09/28/2016 12/29/2016 Inactive Topamax 100 mg tablet RxNorm: 280104 TAKE ONE TABLET BY MOUTH EVERY NIGHT AT BEDTIME 09/28/2016 01/28/2017 Inactive Premarin 0.45 mg tablet RxNorm: 819010 TAKE ONE TABLET BY MOUTH DAILY 09/28/2016 12/29/2016 Inactive metformin ER 500 mg tablet,extended release 24 hr RxNorm: 86 0975 TAKE ONE TABLET BY MOUTH DAILY 09/28/2016 12/29/2016 Inactive Ventolin HFA 90 mcg/actuation aerosol inhaler RxNorm: 984047 INHALE TWO PUFFS BY MOUTH EVERY 4 HOURS NEEDED 09/22/2016 10/23/2016 Inactive Pulmicort 1 mg/2 mL suspension for nebulization RxNorm: 6168 19 1 Unit Dose INH BID Dx: COPD (J44.9) 09/10/2016 08/16/2017 Inactive Pulmicort 1 mg/2 mL suspension for nebulization RxNorm: 6168 19 1 Unit Dose INH BID 09/10/2016 09/09/2016 Inactive Brovana 15 mcg/2 mL solution for nebulization RxNorm: 012064 1 Unit Dose INH BID Dx: COPD (J44.9) 09/10/2016 01/25/2018 Inactive Brovana 15 mcg/2 mL solution for nebulization RxNorm: 569557 1 Unit Dose INH BID 09/10/2016 09/09/2016 Inactive ipratropium-albuterol 0.5 mg-3 mg(2.5 mg base)/3 mL ne bulization soln RxNorm: 9059179 1 Unit Dose INH Q4H as needed Dx: COPD (J44.9) 09/10/2016 0 02/12/2019 Inactive orphenadrine citrate ER 100 mg tablet,extended release RxNor m: 870530 1 Tablet(s) PO BID for muscle spasm--replaces methocarbamol 09/09/2016 Inactive Chantix Continuing Month Box 1 mg tablet RxNorm: 937250 Tablet(s) PO as directed 09/09/2016 10/30/2016 Inactive orphenadrine citrate ER 100 mg tablet,extended release RxNor m: 179829 1 Tablet(s) PO BID for muscle spasm 09/09/2016 09/08/2016 Inactive Spiriva with HandiHaler 18 mcg and inhalation capsules RxNor m: 909222 INHALE THE ENTIRE CONTENTS OF 1 CAPSULE ONCE A DAY USING HANDIHALER 09/01/201605/2017 Inactive Daliresp 500 mcg tablet RxNorm: 5621613 1 Tablet(s) PO QD 08/27/2016 03/01/2017 Inactive prednisone 20 mg tablet RxNorm: 005388 3 Tablet(s) PO T ID for 3 days then 1 po BID for 3 days then one daily for 3 days 08/26/2016 04/28/2017 Inactiv e Wellbutrin XL 300 mg 24 hr tablet, extended release RxNorm: 619970 TAKE ONE TABLET BY MOUTH EVERY MORNING 07/29/2016 10/26/2016 Inactive gabapentin 600 mg tablet RxNorm: 641641 1 Tablet(s) PO BID 06/26/20 16 12/22/2016 Inactive fluoxetine 40 mg capsule RxNorm: 087302 TAKE ONE CAPSULE BY BENOIT TH EVERY MORNING 06/24/2016 11/20/2016 Inactive Duragesic 100 mcg/hr transdermal patch RxNorm: 871529 2 Application TD Q48H for pain 06/05/2016 07/04/2016 Inactive oxycodone 10 mg tablet RxNorm: 8235770 1-2 Tablet(s) PO QID as n eeded for pain 06/05/2016 03/17/2017 Inactive Belladonna-Phenobarbital 48 mg tablet,extended release RxNor m: 2 Tablet(s) PO TID 06/05/2016 01/19/2017 Inactive Premarin 0.45 mg tablet RxNorm: 363284 TAKE ONE TABLET BY MOUTH DAILY 05/27/2016 09/23/2016 Inactive Topamax 100 mg tablet RxNorm: 122738 TAKE ONE TABLET BY MOUTH EVERY NIGHT AT BEDTIME 05/27/2016 09/27/2016 Inactive Synthroid 112 mcg tablet RxNorm: 189970 TAKE ONE TABLET BY MOUT H DAILY 05/27/2016 09/23/2016 Inactive metformin ER 500 mg tablet,extended release 24 hr RxNorm: 86 0975 TAKE ONE TABLET BY MOUTH DAILY 05/27/2016 09/23/2016 Inactive Symbicort 160 mcg-4.5 mcg/actuation HFA aerosol inhaler RxNo rm: 1402928 INHALE TWO PUFFS TWO TIMES A DAY 05/27/2016 10/23/2016 Inactive Ventolin HFA 90 mcg/actuation aerosol inhaler RxNorm: 964906 INHALE TWO PUFFS BY MOUTH EVERY 4 HOURS NEEDED 05/21/2016 07/07/2016 Inactive omeprazole 40 mg capsule,delayed release RxNorm: 802907 1 Capsu le(s) PO QD 05/06/2016 08/03/2016 Inactive metformin ER 500 mg tablet,extended release 24 hr RxNorm: 86 0975 TAKE ONE TABLET BY MOUTH DAILY 04/23/2016 05/22/2016 Inactive methocarbamol 750 mg tablet RxNorm: 092111 2 Tablet(s) PO TID as needed for muscle spasm 04/23/2016 09/08/2016 Inactive Synthroid 112 mcg tablet RxNorm: 156467 TAKE ONE TABLET BY MOUT H DAILY 04/23/2016 05/22/2016 Inactive Spiriva with HandiHaler 18 mcg and inhalation capsules RxNor m: 366567 INHALE THE ENTIRE CONTENTS OF 1 CAPSULE ONCE A DAY USING HANDIHALER 04/09/201608/2016 Inactive Diflucan 100 mg tablet RxNorm: 791384 1 Tablet(s) PO QD 04/08/2016 Inactive doxycycline hyclate 100 mg capsule RxNorm: 2656138 1 Capsule(s) PO BID 04/08/2016 04/17/2016 Inactive doxycycline hyclate 100 mg capsule RxNorm: 0999383 1 Capsule(s) PO BID 04/08/2016 04/07/2016 Inactive Diflucan 100 mg tablet RxNorm: 221097 1 Tablet(s) PO QD 04/08/2016 Inactive ondansetron HCl 4 mg tablet RxNorm: 369074 1 Tablet(s) PO Q4H as needed for nausea and vomiting 04/08/2016 09/22/2017 Inactive gabapentin 600 mg tablet RxNorm: 978119 TAKE ONE TABLET BY MOUT H TWICE A DAY 03/24/2016 06/25/2016 Inactive Synthroid 112 mcg tablet RxNorm: 064325 TAKE ONE TABLET BY MOUT H DAILY 02/25/2016 04/22/2016 Inactive Levaquin 500 mg tablet RxNorm: 674170 1 Tablet(s) PO QD 01/23/2016 Inactive prednisone 20 mg tablet RxNorm: 498067 1 Tablet(s) PO T ID for 3 days then 1 po BID for 3 days then one daily for 3 days 01/23/2016 08/25/2016 Inactiv e [employer] Ultra Test strips RxNorm: TEST BLOOD SUGAR ONCE DAILY 250.00 01/09/2016 11/04/2017 Inactive methocarbamol 750 mg tablet RxNorm: 109822 2 Tablet(s) PO TID as needed for muscle spasm 01/09/2016 04/23/2016 Inactive lactulose 10 gram/15 mL oral solution RxNorm: 610489 [address](s) PO QD 01/09/2016 09/22/2017 Inactive TAKE 1 TABLESPOON BY MOUTH ONCE DAILY metformin ER 500 mg tablet,extended release 24 hr RxNorm: 86 0975 1 Tablet(s) PO QD 12/26/2015 04/22/2016 Inactive fluoxetine 20 mg capsule RxNorm: 436526 1 Capsule(s) PO QD 12/23/19 16 06/19/2016 Inactive Premarin 0.45 mg tablet RxNorm: 250416 TAKE ONE TABLET BY MOUTH DAILY 12/23/2015 05/20/2016 Inactive fluoxetine 40 mg capsule RxNorm: 654600 1 Capsule(s) PO QD 12/23/19 16 06/19/2016 Inactive TAKE ONE CAPSULE BY MOUTH EV JANKI MORNING azithromycin 500 mg tablet RxNorm: 966832 1 Tablet(s) PO QD 016 12/19/2015 Inactive Zofran 4 mg tablet RxNorm: 869543 1 Tablet(s) PO Q4H prn nausea /vomiting 12/13/2015 03/30/2018 Inactive azithromycin 500 mg tablet RxNorm: 152186 1 Tablet(s) PO QD 016 12/12/2015 Inactive Duragesic 100 mcg/hr transdermal patch RxNorm: 496217 2 Application TD Q48H for pain 12/09/2015 01/07/2016 Inactive oxycodone 10 mg tablet RxNorm: 3868891 1-2 Tablet(s) PO QID as n eeded for pain 12/09/2015 06/04/2016 Inactive Bactroban 2 % topical cream RxNorm: 650000 Application TOP BID 11/2208/25/2016 Inactive doxycycline hyclate 100 mg capsule RxNorm: 6221817 1 Capsule(s) PO BID 12/03/2015 12/12/2015 Inactive Topamax 100 mg tablet RxNorm: 453257 TAKE ONE TABLET BY MOUTH EVERY NIGHT AT BEDTIME 11/25/2015 05/22/2016 Inactive Symbicort 160 mcg-4.5 mcg/actuation HFA aerosol inhaler RxNo rm: 6379551 INHALE TWO PUFFS TWO TIMES A DAY 11/25/2015 05/22/2016 Inactive Synthroid 112 mcg tablet RxNorm: 536804 Tablet(s) TAKE ONE TABLET BY MOUTH DAILY 11/25/2015 02/22/2016 Inactive omeprazole 40 mg capsule,delayed release RxNorm: 447874 1 Capsu le(s) PO QD 11/12/2015 05/05/2016 Inactive oxycodone 10 mg tablet RxNorm: 0968098 1-2 Tablet(s) PO QID as n eeded for pain 11/05/2015 12/08/2015 Inactive Duragesic 100 mcg/hr transdermal patch RxNorm: 004299 2 Application TD Q48H for pain 11/05/2015 12/04/2015 Inactive omeprazole 40 mg capsule,delayed release RxNorm: 488790 1 Capsu le(s) PO QD 10/07/2015 11/11/2015 Inactive Januvia 100 mg tablet RxNorm: 785600 TAKE ONE TABLET BY MOUTH DAILY 09/11/2015 12/25/2015 Inactive Zithromax 500 mg tablet RxNorm: 710263 1 Tablet(s) PO QD 09/10/2015 1 Inactive prednisone 20 mg tablet RxNorm: 855263 1 Tablet(s) PO T ID for 3 days then 1 po BID for 3 days then one daily for 3 days 09/10/2015 08/25/2016 Inactiv e Wellbutrin XL 300 mg 24 hr tablet, extended release RxNorm: 738475 1 Tablet(s) PO QAM 09/10/2015 12/02/2015 Inactive Topamax 100 mg tablet RxNorm: 893757 TAKE ONE TABLET BY MOUTH EVERY NIGHT AT BEDTIME 09/02/2015 11/24/2015 Inactive Synthroid 112 mcg tablet RxNorm: 565506 TAKE ONE TABLET BY MOUT H DAILY 09/02/2015 11/25/2015 Inactive methocarbamol 750 mg tablet RxNorm: 557124 2 Tablet(s) PO TID as needed for muscle spasm 08/15/2015 01/09/2016 Inactive Wellbutrin XL 150 mg 24 hr tablet, extended release RxNorm: 300478 TAKE ONE TABLET BY MOUTH EVERY MORNING 08/13/2015 08/13/2015 Inactive gabapentin 600 mg tablet RxNorm: 332433 1 Tablet(s) PO BID 08/13/20 15 02/08/2016 Inactive Wellbutrin XL 300 mg 24 hr tablet, extended release RxNorm: 821617 1 Tablet(s) PO QAM 08/06/2015 09/09/2015 Inactive Wellbutrin XL 150 mg 24 hr tablet, extended release RxNorm: 161461 1 Tablet(s) PO QAM 07/18/2015 08/05/2015 Inactive prednisone 20 mg tablet RxNorm: 234073 1 Tablet(s) PO BID 07/18/2015 07/22/2015 Inactive doxycycline hyclate 100 mg tablet,delayed release RxNorm: 43 4018 1 Tablet(s) PO BID 07/18/2015 07/27/2015 Inactive pravastatin 40 mg tablet RxNorm: 024370 1 Tablet(s) PO QD NEEDS FASTING LAB 07/15/2015 07/14/2015 Inactive pravastatin 40 mg tablet RxNorm: 167845 1 Tablet(s) PO QD NEEDS FASTING LAB 07/15/2015 01/25/2018 Inactive Ventolin HFA 90 mcg/actuation aerosol inhaler RxNorm: 438922 2 Puff(s) INH Q4H 07/08/2015 07/07/2015 Inactive prn Premarin 0.45 mg tablet RxNorm: 427022 1 Tablet(s) PO QD 07/01/2015 0 12/22/2015 Inactive pravastatin 40 mg tablet RxNorm: 482351 1 Tablet(s) PO QD NEEDS FASTING LAB 06/14/2015 07/15/2015 Inactive Ventolin HFA 90 mcg/actuation aerosol inhaler RxNorm: 5967717 2 Puff(s) INH Q4H 06/06/2015 07/08/2015 Inactive prn albuterol sulfate 2.5 mg/3 mL (0.083 %) solution for n ebulization RxNorm: 816810 1 Unit Dose INH QID 05/30/2015 No Stop Date Active Duragesic 100 mcg/hr transdermal patch RxNorm: 490146 2 Application TD Q48H for pain 04/29/2015 05/28/2015 Inactive gabapentin 600 mg tablet RxNorm: 294589 1 Tablet(s) PO BID 04/11/20 15 08/13/2015 Inactive Onglyza 5 mg tablet RxNorm: 457338 1 Tablet(s) PO QD for blood suga r 04/10/2015 04/15/2015 Inactive [Brand Copay Card: RxBIN:[id number] PCN:CRISTIANA RxGRP:[id number] ID#:[id number]] methocarbamol 750 mg tablet RxNorm: 204611 2 Tablet(s) PO TID as needed for muscle spasm 03/28/2015 08/15/2015 Inactive pravastatin 40 mg tablet RxNorm: 447954 1 Tablet(s) PO QD 03/19/2015 03/18/2015 Inactive pravastatin 40 mg tablet RxNorm: 966486 1 Tablet(s) PO QD 03/19/2015 06/14/2015 Inactive lactulose 10 gram/15 mL oral solution RxNorm: 003446 [address]s) PO QD 03/07/2015 01/09/2016 Inactive TAKE 1 TABLESPOON BY MOUTH ONCE DAILY oxycodone 20 mg tablet RxNorm: 0127572 1 Tablet(s) PO QID as nee ded for pain 03/05/2015 07/08/2015 Inactive Topamax 100 mg tablet RxNorm: 159255 1 Tablet(s) PO QHS TAKE ONE TABLET BY MOUTH AT BEDTIME 02/25/2015 02/12/2019 Inactive metformin ER 500 mg tablet,extended release 24 hr RxNorm: 86 0975 1 Tablet(s) PO QD 02/11/2015 03/04/2015 Inactive take one tablet by mouth every day Daliresp 500 mcg tablet RxNorm: 2899925 1 Tablet(s) PO QD 02/11/2015 08/09/2015 Inactive Endocet 10 mg-325 mg tablet RxNorm: 3999668 1 Tablet(s) PO Q4H as needed for pain 01/23/2015 01/23/2015 Inactive gabapentin 600 mg tablet RxNorm: 428317 1 Tablet(s) PO BID 01/23/2004/11/2015 Inactive methocarbamol 750 mg tablet RxNorm: 205573 2 Tablet(s) PO TID as needed for muscle spasm 01/15/2015 02/13/2015 Inactive fluoxetine 40 mg capsule RxNorm: 785464 1 Capsule(s) PO QD 01/14/20 15 12/23/2015 Inactive TAKE ONE CAPSULE BY MOUTH EV JANKI MORNING fluoxetine 20 mg capsule RxNorm: 256785 1 Capsule(s) PO QD 01/14/20 15 12/23/2015 Inactive Premarin 0.45 mg tablet RxNorm: 999891 1 Tablet(s) PO QD 01/02/2015 0 07/01/2015 Inactive Endocet 10 mg-325 mg tablet RxNorm: 8537950 1-2 Tablet(s) PO Q4H 02/12/2019 Inactive PRN PAIN Duragesic 100 mcg/hr transdermal patch RxNorm: 931676 2 Application TD Q48H for pain 12/25/2014 01/23/2015 Inactive Topamax 100 mg tablet RxNorm: 311981 1 Tablet(s) PO QHS TAKE ONE TABLET BY MOUTH AT BEDTIME 12/25/2014 02/24/2015 Inactive Tudorza Pressair 400 mcg/actuation breath activated RxNorm: 9540355 1 BID INHALE ONE PUFF INTO LUNGS TWO TIMES A DAY 12/17/2014 05/15/2015 Inactive Endocet 10 mg-325 mg tablet RxNorm: 2436144 1-2 Tablet(s) PO Q4H 12/19/2014 Inactive PRN PAIN Duragesic 100 mcg/hr transdermal patch RxNorm: 918333 2 Application TD Q48H for pain 11/20/2014 12/24/2014 Inactive [employer] Ultra Test strips RxNorm: TEST BLOOD SUGAR ONCE DAILY 250.00 11/16/2014 01/08/2016 Inactive omeprazole 40 mg capsule,delayed release RxNorm: 286943 1 Capsu le(s) PO QD 11/13/2014 11/12/2015 Inactive metformin ER 500 mg tablet,extended release 24 hr RxNorm: 86 0975 1 Tablet(s) PO QD 11/12/2014 02/11/2015 Inactive take one tablet by mouth every day Symbicort 160 mcg-4.5 mcg/actuation HFA aerosol inhaler RxNo rm: 1536348 2 Puff(s) INH BID 11/12/2014 03/11/2015 Inactive INHALE 2 PUFFS O RALLY TWO TIMES A DAY gabapentin 800 mg tablet RxNorm: 473238 1 Tablet(s) PO QD TAKE ONE TABLET BY MOUTH ONCE A DAY 10/22/2014 01/01/2015 Inactive Endocet 10 mg-325 mg tablet RxNorm: 3197853 1-2 Tablet(s) PO Q4H 11/15/2014 Inactive PRN PAIN Duragesic 100 mcg/hr transdermal patch RxNorm: 354074 2 Application TD Q48H for pain 10/17/2014 11/19/2014 Inactive gabapentin 800 mg tablet RxNorm: 074934 1 Tablet(s) PO QD TAKE ONE TABLET BY MOUTH ONCE A DAY 10/04/2014 10/21/2014 Inactive Premarin 0.9 mg tablet RxNorm: 960560 1 Tablet(s) PO QD TAKE ONE TABLET BY MOUTH ONCE A DAY 10/04/2014 01/01/2015 Inactive Spiriva with HandiHaler 18 mcg & inhalation capsules RxNorm: 118672 1 Capsule(s) INH QD 10/03/2014 04/30/2015 Inactive Levaquin 500 mg tablet RxNorm: 568180 1 Tablet(s) PO QD 10/03/2014 Inactive prednisone 20 mg tablet RxNorm: 483078 1 Tablet(s) PO QD 10/03/2014 1 12/09/2013 Inactive Duragesic 100 mcg/hr transdermal patch RxNorm: 403128 2 Application TD Q48H for pain 09/18/2014 10/16/2014 Inactive Endocet 10 mg-325 mg tablet RxNorm: 0179187 1-2 Tablet(s) PO Q4H 10/16/2014 Inactive PRN PAIN Synthroid 112 mcg tablet RxNorm: 186869 1 Tablet(s) QD 09/10/2014 Inactive Synthroid 112 mcg tablet RxNorm: 808792 TAKE ONE TABLET BY MOUTH ONE TIME A DAY. NEEDS LABS 09/10/2014 02/06/2015 Inactive omeprazole 40 mg capsule,delayed release RxNorm: 339948 1 Capsu le(s) PO QD 09/03/2014 11/13/2014 Inactive omeprazole 40 mg capsule,delayed release RxNorm: 373440 1 Capsu le(s) PO QD 09/03/2014 09/02/2014 Inactive Spiriva with HandiHaler 18 mcg & inhalation capsules RxNorm: 291314 1 Capsule(s) INH QD 08/27/2014 10/02/2014 Inactive gabapentin 600 mg tablet RxNorm: 608398 1 Tablet(s) PO BID 08/27/20 14 10/22/2014 Inactive Endocet 10 mg-325 mg tablet RxNorm: 4963726 1-2 Tablet(s) PO Q4H 09/17/2014 Inactive PRN PAIN fentanyl 100 mcg/hr transdermal patch RxNorm: 649387 1 Unit Dos e TD QD 08/21/2014 09/19/2014 Inactive Daliresp 500 mcg tablet RxNorm: 1167801 1 Tablet(s) PO QD 08/13/2014 02/11/2015 Inactive Synthroid 112 mcg tablet RxNorm: 042795 TAKE ONE TABLET BY MOUTH ONE TIME A DAY. NEEDS LABS 08/10/2014 09/10/2014 Inactive Endocet 10 mg-325 mg tablet RxNorm: 7180017 1-2 Tablet(s) PO Q4H 08/17/2014 Inactive PRN PAIN Duragesic 100 mcg/hr transdermal patch RxNorm: 270435 2 Application TD Q48H for pain 07/19/2014 09/17/2014 Inactive fluoxetine 40 mg capsule RxNorm: 798277 1 Capsule(s) PO QD 07/17/20 14 01/14/2015 Inactive TAKE ONE CAPSULE BY MOUTH EV JANKI MORNING fluoxetine 20 mg capsule RxNorm: 250108 1 Capsule(s) PO QD 07/17/20 14 01/14/2015 Inactive Spiriva with HandiHaler 18 mcg & inhalation capsules RxNorm: 908772 1 Capsule(s) INH QD 07/17/2014 08/26/2014 Inactive INHALE CONTENTS OF 1 CAPSULE(S) WITH HANDIHALER ONCE DAILY Zofran 4 mg tablet RxNorm: 252929 1 Tablet(s) PO Q4H prn nausea 07/25/2014 Inactive Synthroid 112 mcg tablet RxNorm: 803985 1 Tablet(s) PO QD 07/09/2014 07/09/2014 Inactive methocarbamol 750 mg tablet RxNorm: 070306 2 Tablet(s) PO TID as needed for muscle spasm 07/09/2014 09/06/2014 Inactive Synthroid 112 mcg tablet RxNorm: 022379 1 Tablet(s) PO QD - nee d labs 07/09/2014 08/07/2014 Inactive Medrol (Aníbal) 4 mg tablets in a dose pack RxNorm: 700683 6 Tablet(s) PO QD --then as directed 07/03/2014 07/08/2014 Inactive Tudorza Pressair 400 mcg/actuation breath activated RxNorm: 8581286 1 Puff(s) INH BID 07/03/2014 12/17/2014 Inactive cefdinir 300 mg capsule RxNorm: 129740 1 Capsule(s) PO BID 07/03/20 14 07/12/2014 Inactive Topamax 100 mg tablet RxNorm: 868677 Tablet(s) TAKE ONE TABLET BY MOUTH AT BEDTIME 07/02/2014 02/25/2015 Inactive Duragesic 100 mcg/hr transdermal patch RxNorm: 204245 2 Application TD Q48H for pain 06/25/2014 07/18/2014 Inactive Endocet 10 mg-325 mg tablet RxNorm: 9017070 1-2 Tablet(s) PO Q4H 07/18/2014 Inactive PRN PAIN metformin ER 500 mg tablet,extended release 24 hr RxNorm: 86 0975 1 Tablet(s) PO QD Needs labs 06/18/2014 07/01/2014 Inactive take one tablet by mouth every day Duragesic 100 mcg/hr transdermal patch RxNorm: 087870 2 Application TD Q48H for pain 05/22/2014 06/24/2014 Inactive Synthroid 112 mcg tablet RxNorm: 024096 1 Tablet(s) PO QD 05/22/2014 07/09/2014 Inactive Endocet 10 mg-325 mg tablet RxNorm: 7776919 1-2 Tablet(s) PO Q4H 06/20/2014 Inactive PRN PAIN Endocet 10 mg-325 mg tablet RxNorm: 6971624 1-2 Tablet(s) PO Q4H 05/21/2014 Inactive PRN PAIN Duragesic 100 mcg/hr transdermal patch RxNorm: 064687 2 Application TD Q48H for pain 04/25/2014 05/21/2014 Inactive Daliresp 500 mcg tablet RxNorm: 5809994 1 Tablet(s) PO QD 04/24/2014 08/13/2014 Inactive Symbicort 160 mcg-4.5 mcg/actuation HFA aerosol inhaler RxNo rm: [id number] 2 Puff(s) INH BID 04/24/2014 08/21/2014 Inactive INHALE 2 PUFFS O RALLY TWO TIMES A DAY metformin ER 500 mg tablet,extended release 24 hr RxNorm: 86 0975 1 Tablet(s) PO QD 04/24/2014 11/12/2014 Inactive TAKE ONE TABLET BY MOUTH EVERY DAY [AttnRPh:Saving Apply/Adjudicate RxGRP:LDMGRP RxBIN:[id number] RxPCN:2012 PCode:01 ID#:[id number]] Symbicort 160 mcg-4.5 mcg/actuation HFA aerosol inhaler RxNo rm: [id number] 2 Puff(s) INH BID 04/24/2014 11/12/2014 Inactive INHALE 2 PUFFS O RALLY TWO TIMES A DAY Premarin 0.9 mg tablet RxNorm: 471540 1 Tablet(s) PO QD 04/24/2014 Inactive TAKE ONE TABLET BY MOUTH EVERY DAY metformin ER 500 mg tablet,extended release 24 hr RxNorm: 86 0975 1 Tablet(s) PO QD Needs labs 04/24/2014 06/18/2014 Inactive TAKE ONE TABLET BY MOUTH EVERY DAY [AttnRPh:Saving Apply/Adjudicate RxGRP:LDMGRP RxBIN:[id number] RxPCN:2012 PCode:01 ID#:[id number]] gabapentin 800 mg tablet RxNorm: 189827 1 Tablet(s) PO QD 04/24/2014 10/04/2014 Inactive TAKE ONE TABLET BY MOUTH EVERY DAY Topamax 100 mg tablet RxNorm: 346608 1 Tablet(s) PO QHS 04/17/2014 Inactive Topamax 100 mg tablet RxNorm: 491103 TAKE ONE TABLET BY MOUTH A T BEDTIME 04/17/2014 07/01/2014 Inactive Tudorza Pressair 400 mcg/actuation breath activated RxNorm: 2824648 1 Puff(s) INH BID 04/11/2014 07/02/2014 Inactive Duragesic 100 mcg/hr transdermal patch RxNorm: 195693 2 Application TD Q48H for pain 03/27/2014 04/24/2014 Inactive Endocet 10 mg-325 mg tablet RxNorm: 5137187 1-2 Tablet(s) PO Q4H 04/24/2014 Inactive PRN PAIN Robaxin 750 mg tablet RxNorm: 169224 2 Tablet(s) PO TID as need ed for spasm 02/23/2014 03/28/2015 Inactive Duragesic 100 mcg/hr transdermal patch RxNorm: 338369 2 Application TD Q48H for pain 02/23/2014 No Stop Date Active Endocet 10 mg-325 mg tablet RxNorm: 4354994 1-2 Tablet(s) PO Q4H 03/23/2014 Inactive PRN PAIN Synthroid 112 mcg tablet RxNorm: 641134 1 Tablet(s) PO QD TAKE ONE TABLET BY MOUTH EVERY DAY 02/15/2014 05/22/2014 Inactive Zithromax 500 mg tablet RxNorm: 354626 1 Tablet(s) PO QD 01/30/2014 0 02/05/2014 Inactive Diflucan 100 mg tablet RxNorm: 479735 1 Tablet(s) PO QD 01/30/2014 Inactive prednisone 20 mg tablet RxNorm: 085482 1 Tablet(s) PO BID 01/30/2014 02/05/2014 Inactive fluoxetine 40 mg capsule RxNorm: 139568 1 Capsule(s) PO QD 01/23/20 14 07/16/2014 Inactive TAKE ONE CAPSULE BY MOUTH EV JAKNI MORNING fluoxetine 40 mg capsule RxNorm: 723547 1 Capsule(s) PO QD 01/23/20 14 07/17/2014 Inactive TAKE ONE CAPSULE BY MOUTH EV JANKI MORNING cefdinir 300 mg capsule RxNorm: 654520 1 Capsule(s) PO BID 01/16/20 14 01/29/2014 Inactive Zithromax 500 mg tablet RxNorm: 998246 1 Tablet(s) PO QD 01/16/2014 0 01/22/2014 Inactive prednisone 20 mg tablet RxNorm: 111050 1 Tablet(s) PO BID 01/16/2014 01/22/2014 Inactive Spiriva with HandiHaler 18 mcg and inhalation capsules RxNor m: 722039 1 Capsule(s) INH QD 12/18/2013 07/17/2014 Inactive INHALE CONTENT S OF 1 CAPSULE(S) WITH HANDIHALER ONCE DAILY fluoxetine 20 mg capsule RxNorm: 775304 1 Capsule(s) PO QD 12/18/19 14 06/15/2014 Inactive Spiriva with HandiHaler 18 mcg & inhalation capsules RxNorm: 161159 1 Capsule(s) INH QD 12/18/2013 06/15/2014 Inactive INHALE CONTENTS OF 1 CAPSULE(S) WITH HANDIHALER ONCE DAILY fluoxetine 20 mg capsule RxNorm: 005207 1 Capsule(s) PO QD 12/18/19 14 07/17/2014 Inactive cefdinir 300 mg capsule RxNorm: 129896 2 Capsule(s) PO QD 12/12/2013 12/21/2013 Inactive Duragesic 100 mcg/hr transdermal patch RxNorm: 593262 2 Application TD Q48H for pain 12/08/2013 12/07/2013 Inactive Topamax 100 mg tablet RxNorm: 796622 1 Tablet(s) PO QHS 12/04/2013 Inactive Endocet 10 mg-325 mg tablet RxNorm: 6381933 1-2 Tablet(s) PO Q4H 12/26/2013 Inactive PRN PAIN Robaxin 750 mg tablet RxNorm: 341311 2 Tablet(s) PO TID as need ed for spasm 11/07/2013 01/05/2014 Inactive gabapentin 800 mg tablet RxNorm: 737682 1 Tablet(s) PO QD 10/16/2013 04/24/2014 Inactive TAKE ONE TABLET BY MOUTH EVERY DAY Symbicort 160 mcg-4.5 mcg/actuation HFA aerosol inhaler RxNo rm: 7360025 2 Puff(s) INH BID 10/16/2013 04/24/2014 Inactive INHALE 2 PUFFS O RALLY TWO TIMES A DAY Premarin 0.9 mg tablet RxNorm: 958101 1 Tablet(s) PO QD 10/16/2013 Inactive TAKE ONE TABLET BY MOUTH EVERY DAY metformin ER 500 mg tablet,extended release 24 hr RxNorm: 86 0975 1 Tablet(s) PO QD 10/16/2013 04/24/2014 Inactive TAKE ONE TABLET BY MOUTH EVERY DAY Daliresp 500 mcg tablet RxNorm: 2754548 1 Tablet(s) PO QD 10/16/2013 04/24/2014 Inactive Robaxin 750 mg tablet RxNorm: 500928 2 Tablet(s) PO TID as need ed for spasm 10/10/2013 11/06/2013 Inactive Duragesic 100 mcg/hr transdermal patch RxNorm: 186722 2 Application TD Q48H for pain 10/09/2013 No Stop Date Active Soma 350 mg tablet RxNorm: 866010 1 Tablet(s) PO TID 09/27/201310/09 Inactive TAKE ONE TABLET BY MOUTH THREE TIMES A D AY lactulose 10 gram/15 mL oral solution RxNorm: 283714 [address](s) PO QD 09/13/2013 03/07/2015 Inactive TAKE 1 TABLESPOON BY MOUTH ONCE DAILY Duragesic 100 mcg/hr transdermal patch RxNorm: 808023 2 Application TD Q48H for pain 09/06/2013 No Stop Date Active Endocet 10 mg-325 mg tablet RxNorm: 3783228 1-2 Tablet(s) PO Q4H 09/27/2013 Inactive PRN PAIN lancets 28 gauge RxNorm: Miscellaneous As needed for blo od glucose sticks 08/24/2013 No Stop Date Active 16.2 mg-0.1037 mg-0.0194 mg tablet RxNorm: 2636535 Tablet(s) PO PRN for gas and cramping 08/24/2013 01/19/2017 Inactive TAKE TWO TABLET S BY MOUTH THREE TIMES A DAY NEEDED FOR GAS AND CRAMPING Topamax 100 mg tablet RxNorm: 445214 1 Tablet(s) PO QHS 07/31/2013 Inactive Diflucan 100 mg tablet RxNorm: 751425 1 Tablet(s) PO QD 07/27/2013 Inactive cefdinir 300 mg capsule RxNorm: 243002 1 Capsule(s) PO BID 07/26/20 13 08/08/2013 Inactive Daliresp 500 mcg tablet RxNorm: 9324987 1 Tablet(s) PO QD 07/25/2013 10/15/2013 Inactive fluoxetine 40 mg capsule RxNorm: 029414 1 Capsule(s) PO QD 07/25/20 13 01/22/2014 Inactive TAKE ONE CAPSULE BY MOUTH EV JANKI MORNING Senokot-S 8.6 mg-50 mg tablet RxNorm: 5788497 1 Tablet(s) PO BID 10/25/2013 Inactive doxycycline hyclate 100 mg capsule RxNorm: 5385933 1 Capsule(s) PO BID 06/28/2013 07/07/2013 Inactive prednisone 20 mg tablet RxNorm: 368779 1 Tablet(s) PO BID 06/28/2013 07/04/2013 Inactive Zofran 4 mg tablet RxNorm: 580915 1 Tablet(s) PO Q4H prn nausea 03/201307/05/2013 Inactive Spiriva with HandiHaler 18 mcg & inhalation capsules RxNorm: 099743 1 Capsule(s) INH QD 06/26/2013 12/18/2013 Inactive INHALE CONTENTS OF 1 CAPSULE(S) WITH HANDIHALER ONCE DAILY Synthroid 112 mcg tablet RxNorm: 077280 1 Tablet(s) PO QD TAKE ONE TABLET BY MOUTH EVERY DAY 06/19/2013 02/15/2014 Inactive fluoxetine 20 mg capsule RxNorm: 154981 1 Capsule(s) PO QD 06/19/20 13 12/18/2013 Inactive Ventolin HFA 90 mcg/actuation Aerosol Inhaler RxNorm: 6279125 2 Puff(s) INH Q4H 06/05/2013 No Stop Date Active prn Soma 350 mg tablet RxNorm: 742007 1 Tablet(s) PO TID 06/05/201307/04 Inactive TAKE ONE TABLET BY MOUTH THREE TIMES A D AY prednisone 20 mg tablet RxNorm: 680385 1 Tablet(s) PO QD 05/31/2013 0 06/06/2013 Inactive Topamax 100 mg tablet RxNorm: 542047 1 Tablet(s) PO QHS 05/22/2013 Inactive Levaquin 500 mg tablet RxNorm: 801850 1 Tablet(s) PO QD 05/03/2013 Inactive Diflucan 100 mg tablet RxNorm: 737172 1 Tablet(s) PO QD 05/03/2013 Inactive Daliresp 500 mcg tablet RxNorm: 4506172 1 Tablet(s) PO QD 05/01/2013 07/24/2013 Inactive Daliresp 500 mcg tablet RxNorm: 4375588 1 Tablet(s) PO QD 05/01/2013 04/30/2013 Inactive gabapentin 800 mg tablet RxNorm: 343308 1 Tablet(s) PO QD 04/10/2013 10/06/2013 Inactive TAKE ONE TABLET BY MOUTH EVERY DAY metformin ER 500 mg tablet,extended release 24 hr RxNorm: 86 0977 1 Tablet(s) PO QD 04/10/2013 10/06/2013 Inactive TAKE ONE TABLET BY MOUTH EVERY DAY Premarin 0.9 mg tablet RxNorm: 477296 1 Tablet(s) PO QD 04/10/2013 Inactive TAKE ONE TABLET BY MOUTH EVERY DAY Symbicort 160 mcg-4.5 mcg/actuation HFA aerosol inhaler RxNo rm: 1214915 2 Puff(s) INH BID 04/10/2013 10/06/2013 Inactive INHALE 2 PUFFS O RALLY TWO TIMES A DAY Synthroid 112 mcg tablet RxNorm: 021577 1 Tablet(s) PO QD TAKE ONE TABLET BY MOUTH EVERY DAY 04/10/2013 06/18/2013 Inactive Ventolin HFA 90 mcg/actuation Aerosol Inhaler RxNorm: 193894 2 Puff(s) INH Q4H 04/10/2013 No Stop Date Active prn fentanyl 100 mcg/hr transdermal patch RxNorm: 365746 1 Unit Dos e TD QD 04/03/2013 05/02/2013 Inactive Endocet 10 mg-325 mg tablet RxNorm: 7299866 1-2 Tablet(s) PO Q4H 05/02/2013 Inactive PRN PAIN Topamax 100 mg tablet RxNorm: 104217 1 Tablet(s) PO QHS 03/13/2013 Inactive Reglan 10 mg tablet RxNorm: 272741 1 Tablet(s) PO QID b efore meals and at bedtime 03/13/2013 04/09/2015 Inactive fluoxetine 20 mg capsule RxNorm: 954842 1 Capsule(s) PO QD 02/28/20 13 05/27/2013 Inactive Ventolin HFA 90 mcg/actuation Aerosol Inhaler RxNorm: 793772 2 Puff(s) INH Q4H 02/13/2013 No Stop Date Active prn fluoxetine 40 mg capsule RxNorm: 138365 1 Capsule(s) PO QD 01/31/20 13 07/24/2013 Inactive TAKE ONE CAPSULE BY MOUTH EV JANKI MORNING Soma 350 mg tablet RxNorm: 765837 1 Tablet(s) PO TID 01/20/201302/18 Inactive TAKE ONE TABLET BY MOUTH THREE TIMES A D AY Endocet 10 mg-325 mg tablet RxNorm: 0154265 1-2 Tablet(s) PO Q4H 02/06/2013 Inactive PRN PAIN MS Contin 200 mg tablet,extended release RxNorm: 807790 1 Table t(s) PO BID 01/18/2013 02/06/2013 Inactive Ventolin HFA 90 mcg/actuation Aerosol Inhaler RxNorm: 607878 2 Puff(s) INH Q4H 01/04/2013 No Stop Date Active prn Spiriva with HandiHaler 18 mcg & inhalation capsules RxNorm: 600210 1 Capsule(s) INH QD 12/29/2012 06/25/2013 Inactive INHALE CONTENTS OF 1 CAPSULE(S) WITH HANDIHALER ONCE DAILY Spiriva with HandiHaler 18 mcg & inhalation capsules RxNorm: 581442 1 Capsule(s) INH QD 12/26/2012 12/28/2012 Inactive INHALE CONTENTS OF 1 CAPSULE(S) WITH HANDIHALER ONCE DAILY Synthroid 112 mcg tablet RxNorm: 773823 Tablet(s) PO TA KE ONE TABLET BY MOUTH EVERY DAY 12/26/2012 04/09/2013 Inactive Endocet 10 mg-325 mg tablet RxNorm: 3013103 1-2 Tablet(s) PO Q4H 01/17/2013 Inactive PRN PAIN MS Contin 200 mg tablet,extended release RxNorm: 406304 1 Table t(s) PO BID 12/21/2012 01/17/2013 Inactive fluoxetine 20 mg capsule RxNorm: 631044 1 Capsule(s) PO QD 12/06/19 13 02/26/2013 Inactive Synthroid 112 mcg tablet RxNorm: 216254 1 Tablet(s) PO QD 12/06/2012 02/12/2019 Inactive TAKE ONE TABLET BY MOUTH EVERY DAY Ventolin HFA 90 mcg/actuation Aerosol Inhaler RxNorm: 475509 2 Puff(s) INH Q4H 12/06/2012 No Stop Date Active prn Reglan 10 mg tablet RxNorm: 140320 1 Tablet(s) PO QID b efore meals and at bedtime 11/24/2012 03/12/2013 Inactive Topamax 100 mg tablet RxNorm: 051683 1 Tablet(s) PO QHS 11/16/2012 Inactive Ventolin HFA 90 mcg/actuation Aerosol Inhaler RxNorm: 604608 2 Puff(s) INH Q4H 11/09/2012 No Stop Date Active prn gabapentin 800 mg tablet RxNorm: 873534 1 Tablet(s) PO QD 10/27/2012 04/09/2013 Inactive TAKE ONE TABLET BY MOUTH EVERY DAY metformin ER 500 mg tablet,extended release 24 hr RxNorm: 86 0977 1 Tablet(s) PO QD 10/27/2012 04/09/2013 Inactive TAKE ONE TABLET BY MOUTH EVERY DAY Symbicort 160 mcg-4.5 mcg/actuation HFA Aerosol Inhaler RxNo rm: 3241594 2 Puff(s) INH BID 10/27/2012 04/09/2013 Inactive INHALE 2 PUFFS O RALLY TWO TIMES A DAY Premarin 0.9 mg tablet RxNorm: 306461 1 Tablet(s) PO QD 10/27/2012 Inactive TAKE ONE TABLET BY MOUTH EVERY DAY Endocet 10 mg-325 mg tablet RxNorm: 5152161 1-2 Tablet(s) PO Q4H 11/24/2012 Inactive PRN PAIN MS Contin 200 mg tablet,extended release RxNorm: 616321 1 Table t(s) PO BID 10/26/2012 11/24/2012 Inactive Soma 350 mg tablet RxNorm: 708359 1 Tablet(s) PO TID 10/04/201211/02 Inactive TAKE ONE TABLET BY MOUTH THREE TIMES A D AY Ventolin HFA 90 mcg/actuation Aerosol Inhaler RxNorm: 246162 2 Puff(s) INH Q4H 10/03/2012 No Stop Date Active prn Daliresp 500 mcg tablet RxNorm: 1438246 1 Tablet(s) PO QD 09/28/2012 09/27/2012 Inactive Daliresp 500 mcg tablet RxNorm: 4213650 1 Tablet(s) PO QD 09/28/2012 04/25/2013 Inactive fluoxetine 20 mg capsule RxNorm: 048041 1 Capsule(s) PO QD 09/05/2012/06/2012 Inactive Topamax 50 mg tablet RxNorm: 256572 Tablet(s) PO for 1w k then 1 po q HS for 1wk then 2 po q HS 08/29/2012 09/27/2012 Inactive TAKE 1/2 TABLET BY MOUTH AT BEDTIME FOR 1 WEEK, THEN 1 TABLET AT BEDTIME FOR 1 WEEK, THEN 2 TABLETS AT BEDTIME Topamax 100 mg tablet RxNorm: 808260 1 Tablet(s) PO QHS 08/29/2012 Inactive Ventolin HFA 90 mcg/actuation Aerosol Inhaler RxNorm: 883070 2 Puff(s) INH Q4H 08/19/2012 No Stop Date Active prn Ventolin HFA 90 mcg/actuation Aerosol Inhaler RxNorm: 799044 2 Puff(s) INH Q4H 08/15/2012 No Stop Date Active prn Synthroid 112 mcg tablet RxNorm: 171149 1 Tablet(s) PO QD 08/10/2012 11/07/2012 Inactive TAKE ONE TABLET BY MOUTH EVERY DAY Synthroid 112 mcg tablet RxNorm: 173827 1 Tablet(s) PO QD 08/01/2012 08/09/2012 Inactive TAKE ONE TABLET BY MOUTH EVERY DAY Reglan 10 mg tablet RxNorm: 784666 1 Tablet(s) PO QID b efore meals and at bedtime 08/01/2012 11/23/2012 Inactive fluoxetine 40 mg capsule RxNorm: 917059 1 Capsule(s) PO QD 08/01/2001/27/2013 Inactive TAKE ONE CAPSULE BY MOUTH EV JANKI MORNING Ventolin HFA 90 mcg/actuation Aerosol Inhaler RxNorm: 174817 2 Puff(s) INH Q4H 08/01/2012 No Stop Date Active prn Soma 350 mg tablet RxNorm: 584579 1 Tablet(s) PO TID 07/20/201208/18 Inactive TAKE ONE TABLET BY MOUTH THREE TIMES A D AY Spiriva with HandiHaler 18 mcg & inhalation capsules RxNorm: 069684 1 Capsule(s) INH 07/01/2012 12/25/2012 Inactive INHALE CONTENTS OF 1 CAPSULE(S) WITH HANDIHALER ONCE DAILY Zithromax 250 mg Tab RxNorm: 464377 2 Tablet(s) PO QD 06/28/201206/22 Inactive MS Contin 200 mg tablet,extended release RxNorm: 288859 1 Table t(s) PO BID 06/28/2012 07/27/2012 Inactive Endocet 10 mg-325 mg tablet RxNorm: 7651323 1-2 Tablet(s) PO Q4H 07/27/2012 Inactive PRN PAIN Topamax 100 mg tablet RxNorm: 410359 1 Tablet(s) PO QHS 06/28/2012 Inactive 16.2 mg-0.1037 mg-0.0194 mg tablet RxNorm: 7467570 Tablet(s) PO PRN for gas and cramping 06/08/2012 08/23/2013 Inactive TAKE TWO TABLET S BY MOUTH THREE TIMES A DAY NEEDED FOR GAS AND CRAMPING Ventolin HFA 90 mcg/actuation Aerosol Inhaler RxNorm: 835123 2 Puff(s) INH Q4H 05/23/2012 No Stop Date Active prn Ventolin HFA 90 mcg/actuation Aerosol Inhaler RxNorm: 147401 2 Puff(s) INH Q4H 05/11/2012 No Stop Date Active prn Synthroid 112 mcg tablet RxNorm: 103302 1 Tablet(s) PO QD 05/09/2012 07/31/2012 Inactive TAKE ONE TABLET BY MOUTH EVERY DAY gabapentin 800 mg tablet RxNorm: 224980 1 Tablet(s) PO QD 05/09/2012 10/26/2012 Inactive TAKE ONE TABLET BY MOUTH EVERY DAY fluoxetine 40 mg capsule RxNorm: 975465 1 Capsule(s) PO QD 05/09/2007/31/2012 Inactive TAKE ONE CAPSULE BY MOUTH EV JANKI MORNING metformin ER 500 mg tablet,extended release 24 hr RxNorm: 86 0977 1 Tablet(s) PO QD 05/09/2012 10/26/2012 Inactive TAKE ONE TABLET BY MOUTH EVERY DAY Premarin 0.9 mg tablet RxNorm: 306325 1 Tablet(s) PO QD 05/09/2012 Inactive TAKE ONE TABLET BY MOUTH EVERY DAY Symbicort 160 mcg-4.5 mcg/actuation HFA Aerosol Inhaler RxNo rm: 0753208 2 Puff(s) INH BID 05/09/2012 10/26/2012 Inactive INHALE 2 PUFFS O RALLY TWO TIMES A DAY Endocet 10 mg-325 mg Tab RxNorm: 5035548 1-2 Tablet(s) PO Q4H 04/2705/26/2012 Inactive PRN PAIN MS Contin 200 mg Tab RxNorm: 279687 1 Tablet(s) PO BID 04/26/201202/2012 Inactive Ventolin HFA 90 mcg/actuation Aerosol Inhaler RxNorm: 354075 2 Puff(s) INH Q4H 04/25/2012 05/10/2012 Inactive prn Soma 350 mg tablet RxNorm: 998582 2 Tablet(s) PO TID 04/19/201207/19 Inactive TAKE ONE TABLET BY MOUTH THREE TIMES A D AY Ventolin HFA 90 mcg/actuation Aerosol Inhaler RxNorm: 022588 2 Puff(s) INH Q4H 04/12/2012 04/24/2012 Inactive prn Reglan 10 mg tablet RxNorm: 271893 1 Tablet(s) PO QID b efore meals and at bedtime 04/11/2012 07/31/2012 Inactive MS Contin 200 mg Tab RxNorm: 250110 1 Tablet(s) PO BID 03/30/201202/2012 Inactive Endocet 10 mg-325 mg Tab RxNorm: 9504493 1-2 Tablet(s) PO Q4H 03/3004/26/2012 Inactive PRN PAIN MS Contin 200 mg Tab RxNorm: 923937 1 Tablet(s) PO BID 03/02/201206/2012 Inactive Endocet 10 mg-325 mg Tab RxNorm: 1125353 1-2 Tablet(s) PO Q4H 03/0203/29/2012 Inactive PRN PAIN Daliresp 500 mcg tablet RxNorm: 2810277 1 Tablet(s) PO QD 03/01/2012 09/28/2012 Inactive MS Contin 200 mg Tab RxNorm: 699968 1 Tablet(s) PO BID 02/02/201208/2012 Inactive Endocet 10 mg-325 mg Tab RxNorm: 8549780 1-2 Tablet(s) PO Q4H 02/0103/01/2012 Inactive PRN PAIN fluoxetine 40 mg capsule RxNorm: 388293 1 Capsule(s) PO QD 02/02/2008/01/2012 Inactive TAKE ONE CAPSULE BY MOUTH EV JANKI MORNING Synthroid 112 mcg Tab RxNorm: 846060 1 Tablet(s) PO QD 01/18/2012 Inactive TAKE ONE TABLET BY MOUTH EVERY DAY lactulose 10 gram/15 mL oral solution RxNorm: 431917 [address]s) PO QD 01/18/2012 No Stop Date Active TAKE 1 TABLESPOON BY MOUTH ONCE DAILY Ventolin HFA 90 mcg/actuation Aerosol Inhaler RxNorm: 535979 2 Puff(s) INH Q4H 01/18/2012 04/11/2012 Inactive prn MS Contin 200 mg Tab RxNorm: 308333 1 Tablet(s) PO BID 01/05/201210/2012 Inactive Endocet 10 mg-325 mg Tab RxNorm: 7720844 1-2 Tablet(s) PO Q4H 01/0502/01/2012 Inactive PRN PAIN ProAir HFA 90 mcg/Actuation Aerosol Inhaler RxNorm: 223588 2 Pu ff(s) INH Q4H 12/21/2011 No Stop Date Active prn for wheezing or shortness of breath Spiriva with HandiHaler 18 mcg & inhalation Caps RxNorm: 580 261 1 Capsule(s) INH 12/21/2011 06/30/2012 Inactive INHALE CONTENTS OF 1 CAPSULE(S) WITH HANDIHALER ONCE DAILY Reglan 10 mg Tab RxNorm: 060794 1 Tablet(s) PO QID before meals and at bedtime 12/21/2011 04/10/2012 Inactive Synthroid 112 mcg Tab RxNorm: 446061 1 Tablet(s) PO QD 12/21/2011 Inactive TAKE ONE TABLET BY MOUTH EVERY DAY Endocet 10 mg-325 mg Tab RxNorm: 9802267 1-2 Tablet(s) PO Q4H 11/2512/24/2011 Inactive PRN PAIN MS Contin 200 mg Tab RxNorm: 474047 1 Tablet(s) PO BID 11/25/201112/2011 Inactive lactulose 10 gram/15 mL Oral Soln RxNorm: 973470 Milliliter(s) PO 1 No Stop Date Active TAKE 1 TABLESPOON BY MOUTH O NCE DAILY lactulose 10 gram/15 mL Oral Soln RxNorm: 141062 Milliliter(s) PO 1 12/12/2010 11/20/2011 Inactive TAKE 1 TABLESPOON BY MOUTH O NCE DAILY Premarin 0.9 mg Tab RxNorm: 317501 1 Tablet(s) PO QD 10/12/201105/08 Inactive TAKE ONE TABLET BY MOUTH EVERY DAY fluoxetine 20 mg capsule RxNorm: 642651 1 Capsule(s) PO QD 11/21/11 1009/05/2012 Inactive TAKE ONE CAPSULE BY MOUTH EV JANKI DAY Synthroid 112 mcg Tab RxNorm: 597572 1 Tablet(s) PO QD 10/12/2011 Inactive TAKE ONE TABLET BY MOUTH EVERY DAY metformin ER 500 mg 24 hr Tab RxNorm: 856706 1 Tablet(s) PO QD 09/2311/10/2011 Inactive TAKE ONE TABLET BY MOUTH GLYNN RY DAY Synthroid 112 mcg Tab RxNorm: 105643 1 Tablet(s) PO QD 10/12/2011 Inactive TAKE ONE TABLET BY MOUTH EVERY DAY metformin ER 500 mg 24 hr Tab RxNorm: 840666 1 Tablet(s) PO QD 09/2310/11/2011 Inactive TAKE ONE TABLET BY MOUTH GLYNN RY DAY Prevacid 30 mg Cap RxNorm: 683684 Capsule(s) PO 10/12/2011 01/25/2012 Inactive TAKE ONE CAPSULE BY MOUTH EVERY DAY Symbicort 160 mcg-4.5 mcg/actuation HFA Aerosol Inhaler RxNo rm: 7920076 2 Puff(s) INH BID 10/12/2011 05/08/2012 Inactive INHALE 2 PUFFS O RALLY TWO TIMES A DAY gabapentin 800 mg Tab RxNorm: 818693 1 Tablet(s) PO QD 10/12/2011 Inactive TAKE ONE TABLET BY MOUTH EVERY DAY MS Contin 200 mg Tab RxNorm: 318901 1 Tablet(s) PO BID 09/23/201111/2010 Inactive Endocet 10 mg-325 mg Tab RxNorm: 0950930 1-2 Tablet(s) PO Q4H 09/2310/22/2011 Inactive PRN PAIN Endocet 10 mg-325 mg Tab RxNorm: 5139900 1-2 Tablet(s) PO Q4H 08/2109/19/2011 Inactive PRN PAIN MS Contin 200 mg Tab RxNorm: 216581 1 Tablet(s) PO BID 08/21/2011 Inactive Diflucan 100 mg Tab RxNorm: 753044 1 Tablet(s) PO QD 08/10/201108/16 Inactive cefdinir 300 mg Cap RxNorm: 002794 2 Capsule(s) PO QD 08/10/201107/24 Inactive Reglan 10 mg Tab RxNorm: 944248 1 Tablet(s) PO AC & HS 07/15/2011 Inactive Endocet 10 mg-325 mg Tab RxNorm: 7640137 1-2 Tablet(s) PO Q4H 07/1508/13/2011 Inactive PRN PAIN One Touch Ultra Test strips RxNorm: Miscellaneous BID 06/11/2011 1 01/16/2014 Inactive TEST TWO TIMES A DAY lactulose 10 gram/15 mL Oral Soln RxNorm: 435303 Milliliter(s) PO 0 06/10/2011 10/11/2011 Inactive TAKE 1 TABLESPOON BY MOUTH O NCE DAILY Chantix Continuing Month Aníbal 1 mg Tab RxNorm: 322366 Tablet(s) PO 0 06/10/2011 11/02/2011 Inactive TAKE DIRECTED - PER PACK[employer] GE INSTRUCTIONS fluoxetine 40 mg Cap RxNorm: 612069 Capsule(s) PO 06/10/2011 02/02/20 Inactive TAKE ONE CAPSULE BY MOUTH EVERY MORNING Chantix Continuing Month Aníbal 1 mg Tab RxNorm: 253231 Ta blet(s) PO TAKE DIRECTED - PER PACKAGE INSTRUCTIONS 05/13/2011 06/09/2011 Inactive Soma 350 mg Tab RxNorm: 812294 Tablet(s) PO TAKE ON E TABLET BY MOUTH THREE TIMES A DAY 05/13/2011 04/18/2012 Inactive Chantix Continuing Month Aníbal 1 mg Tab RxNorm: 561144 Ta blet(s) PO as directed per package instructions. 04/22/2011 05/12/2011 Inactive Symbicort 160 mcg-4.5 mcg/Actuation HFA Aerosol Inhaler RxNo rm: 4631556 HFA Aerosol Inhaler INH INHALE 2 PUFFS ORALLY TWO TIMES A DAY 04/13/2011 Inactive Synthroid 112 mcg Tab RxNorm: 204347 Tablet(s) PO TAKE ONE TABLET BY MOUTH EVERY DAY 04/13/2011 10/12/2011 Inactive Premarin 0.9 mg Tab RxNorm: 567155 Tablet(s) PO TAKE ON E TABLET BY MOUTH EVERY DAY 04/13/2011 10/12/2011 Inactive gabapentin 800 mg Tab RxNorm: 973108 Tablet(s) PO TAKE ONE TABLET BY MOUTH EVERY DAY 04/13/2011 10/12/2011 Inactive Prevacid 30 mg Cap RxNorm: 410935 1 Capsule(s) PO QD 04/13/201110/11 Inactive Spiriva with HandiHaler 18 mcg & inhalation Caps RxNorm: 580 261 Capsule(s) INH INHALE CONTENTS OF 1 CAPSULE(S) WITH HANDIHALER ONCE DAILY 04/13/2011 12/21/2011 Inactive metformin ER 500 mg 24 hr Tab RxNorm: 048031 Tablet(s) PO TAKE ONE TABLET BY MOUTH EVERY DAY 04/13/2011 10/12/2011 Inactive Soma 350 mg Tab RxNorm: 734923 1 Tablet(s) PO QID 03/30/2011 02/13/20 19 Inactive fluoxetine 20 mg Cap RxNorm: 079300 Capsule(s) PO TAKE ONE CAPSULE BY MOUTH EVERY DAY 03/25/2011 10/12/2011 Inactive cefdinir 300 mg Cap RxNorm: 057557 2 Capsule(s) PO QD 03/19/201105/2011 Inactive 16.2 mg-0.1037 mg-0.0194 mg Tab RxNorm: 8905573 2 Tablet(s) PO TID PRN for gas and cramping 03/16/2011 07/13/2011 Inactive Soma 350 mg Tab RxNorm: 113257 2 Tablet(s) PO TID 03/16/2011 03/29/20 11 Inactive Chantix Starting Month Aníbal 0.5 mg (11)-1 mg (3x14) Tab s in a Dose Pack RxNorm: 331214 Tablet(s) PO as directed 03/02/2011 No Stop Date Active diazepam 10 mg Tab RxNorm: 857387 1 Tablet(s) PO BID 02/10/201101/19 Inactive Zofran 4 mg tablet RxNorm: 305223 1 Tablet(s) PO Q4H prn nausea 02/16/2011 Inactive Diflucan 100 mg Tab RxNorm: 966110 1 Tablet(s) PO QD 01/18/201101/24 Inactive Premarin 0.625 mg/g Vaginal Cream RxNorm: 053940 VAG In sert 1gm vaginally at bedtime 3 times weekly 01/18/2011 02/12/2019 Inactive loratadine 10 mg Tab RxNorm: 1502657 1 Tablet(s) PO QD 12/17/201003/2012 Inactive Spiriva with HandiHaler 18 mcg & inhalation Caps RxNorm: 580 261 1 Capsule(s) INH QD 12/17/2010 04/12/2011 Inactive Diflucan 100 mg Tab RxNorm: 163448 1 Tablet(s) PO QD 12/17/201012/23 Inactive diazepam 10 mg Tab RxNorm: 829416 1 Tablet(s) PO BID and PRN 201002/12/2019 Inactive One Touch Ultra Test Strips RxNorm: InVt BID Zainab t blood sugar at least twice daily. 11/11/2010 06/11/2011 Inactive fluoxetine 40 mg Cap RxNorm: 354764 1 Capsule(s) PO QAM 11/11/2010 Inactive diazepam 10 mg Tab RxNorm: 431017 1 Tablet(s) PO BID and PRN 200911/12/2010 Inactive Bactrim DS 800 mg-160 mg Tab RxNorm: 741266 1 Tablet(s) PO BID 09/2210/15/2010 Inactive fluoxetine 20 mg Cap RxNorm: 428143 1 Capsule(s) PO QD 10/02/201008/2011 Inactive Bactrim DS 800 mg-160 mg Tab RxNorm: 196228 1 Tablet(s) PO BID 01/201010/03/2010 Inactive Zofran 4 mg Tab RxNorm: 183982 1 Tablet(s) PO Q4H prn nausea 200910/16/2010 Inactive 16.2 mg-0.1037 mg-0.0194 mg Tab RxNorm: 4646311 2 Tablet(s) PO TID PRN for gas and cramping 09/17/2010 10/21/2010 Inactive Gabapentin 800 mg Tab RxNorm: 867592 1 Tablet(s) PO QD 09/16/2010 Inactive ProAir HFA 90 mcg/Actuation Aerosol Inhaler RxNorm: 429452 2 Puff(s) INH Q4H prn shortness of breath 09/15/2010 12/13/2010 Inactive gabapentin 800 mg Tab RxNorm: 718606 1 Tablet(s) PO QD 09/15/2010 Inactive Prevacid 30 mg Cap RxNorm: 586332 1 Capsule(s) PO QD 09/15/201004/12 Inactive loratadine 10 mg Tab RxNorm: 3978194 1 Tablet(s) PO QD 09/15/2010 Inactive Premarin 0.9 mg Tab RxNorm: 706355 1 Tablet(s) PO QD 09/15/201004/12 Inactive Synthroid 112 mcg Tab RxNorm: 201457 1 Tablet(s) PO QD 09/15/2010 Inactive metformin ER 500 mg 24 hr Tab RxNorm: 172699 1 Tablet(s) PO QD 08/2304/12/2011 Inactive Symbicort 160 mcg-4.5 mcg/Actuation Inhalation HFA Aer osol Inhaler RxNorm: 4228184 2 Puff(s) INH BID 09/15/2010 04/12/2011 Inactive diazepam 10 mg Tab RxNorm: 281232 1 Tablet(s) PO BID and PRN 200910/13/2010 Inactive Phentermine 37.5 mg Cap RxNorm: 682770 1 Capsule(s) PO QD 09/02/2010 11/02/2011 Inactive ProAir HFA 90 mcg/Actuation Aerosol Inhaler RxNorm: 260029 2 Puff(s) INH Q4H prn shortness of breath 08/07/2010 No Stop Date Active Premarin 0.9 mg Tab RxNorm: 626716 1 Tablet(s) PO QD 08/07/201009/14 Inactive Loratadine 10 mg Tab RxNorm: 0266555 1 Tablet(s) PO QD 08/07/2010 Inactive Lactulose 10 gram/15 mL Oral Soln RxNorm: 539792 1 Unit Dose PO QD 08/07/2010 02/12/2019 Inactive Zofran 4 mg Tab RxNorm: 978376 1 Tablet(s) PO Q4H prn nausea 2009 No Stop Date Active Gabapentin 800 mg Tab RxNorm: 074306 1 Tablet(s) PO QD 08/07/2010 Inactive Synthroid 112 mcg Tab RxNorm: 004566 1 Tablet(s) PO QD 08/07/2010 Inactive Metformin ER 500 mg 24 hr Tab RxNorm: 593620 1 Tablet(s) PO QD 07/2309/14/2010 Inactive Vitamin D 1,000 unit Tab RxNorm: 152659 1 Tablet(s) PO TID 08/07/2002/12/2019 Inactive Symbicort 160 mcg-4.5 mcg/Actuation Inhalation HFA Aer osol Inhaler RxNorm: 3803824 2 Puff(s) INH BID 08/07/2010 09/14/2010 Inactive Prevacid 30 mg Cap RxNorm: 208655 1 Capsule(s) PO QD 08/07/201009/14 Inactive Metformin ER 500 mg 24 hr Tab RxNorm: 170901 1 Tablet(s) PO QD 06/2308/06/2010 Inactive Vitamin D 1,000 unit Tab RxNorm: 556753 1 Tablet(s) PO TID 07/14/2008/06/2010 Inactive Synthroid 112 mcg Tab RxNorm: 053283 1 Tablet(s) PO QD 07/14/2010 Inactive Lactulose 10 gram/15 mL Oral Soln RxNorm: 778582 1 Unit Dose PO QD 07/14/2010 08/06/2010 Inactive Levaquin 500 mg Tab RxNorm: 671694 1 Tablet(s) PO QD 07/14/201007/27 Inactive Premarin 0.9 mg Tab RxNorm: 137941 1 Tablet(s) PO QD 07/14/201008/06 Inactive ProAir HFA 90 mcg/Actuation Aerosol Inhaler RxNorm: 032073 2 Puff(s) INH Q4H prn shortness of breath 07/14/2010 No Stop Date Active Prevacid 30 mg Cap RxNorm: 412870 1 Capsule(s) PO QD 07/14/201008/06 Inactive Zofran 4 mg Tab RxNorm: 905573 1 Tablet(s) PO Q4H prn nausea 2009 No Stop Date Active Symbicort 160 mcg-4.5 mcg/Actuation Inhalation HFA Aer osol Inhaler RxNorm: 2374540 2 Puff(s) INH BID 07/14/2010 08/06/2010 Inactive Loratadine 10 mg Tab RxNorm: 7568168 1 Tablet(s) PO QD 07/14/2010 Inactive Gabapentin 800 mg Tab RxNorm: 816341 1 Tablet(s) PO QD 07/14/2010 Inactive Metformin ER 500 mg 24 hr Tab RxNorm: 657662 1 Tablet(s) PO 010 07/13/2010 Inactive Diazepam 10 mg Tab RxNorm: 386866 1 Tablet(s) PO BID and PRN 200909/06/2010 Inactive Premarin 0.9 mg Tab RxNorm: 732586 1 Tablet(s) PO QD 06/09/201007/13 Inactive Zofran 4 mg Tab RxNorm: 396087 1 Tablet(s) PO Q4H prn nausea 2009 No Stop Date Active ProAir HFA 90 mcg/Actuation Aerosol Inhaler RxNorm: 913366 2 Puff(s) INH Q4H prn shortness of breath 06/09/2010 No Stop Date Active Gabapentin 800 mg Tab RxNorm: 283650 1 Tablet(s) PO QD 06/09/2010 Inactive Loratadine 10 mg Tab RxNorm: 8063284 1 Tablet(s) PO QD 06/09/2010 Inactive Lactulose 10 gram/15 mL Oral Soln RxNorm: 023411 1 Unit Dose PO QD 06/09/2010 07/13/2010 Inactive Prevacid 30 mg Cap RxNorm: 244359 1 Capsule(s) PO QD 06/09/201007/13 Inactive Synthroid 112 mcg Tab RxNorm: 627577 1 Tablet(s) PO QD 06/09/2010 Inactive Symbicort 160 mcg-4.5 mcg/Actuation Inhalation HFA Aer osol Inhaler RxNorm: 5360651 2 Puff(s) INH BID 06/09/2010 07/13/2010 Inactive Omnicef 300 mg Cap RxNorm: 176681 2 Capsule(s) PO QD 05/07/201005/20 Inactive Metformin 500 mg Tab RxNorm: 859824 1 Tablet(s) PO QD 05/06/201005/22 Inactive ProAir HFA 90 mcg/Actuation Aerosol Inhaler RxNorm: 313174 2 Puff(s) INH Q4H prn shortness of breath 05/06/2010 No Stop Date Active lactulose 10 gram/15 mL Oral Soln RxNorm: 225441 1 Unit Dose PO QD 05/06/2010 06/10/2011 Inactive Loratadine 10 mg Tab RxNorm: 2039346 1 Tablet(s) PO QD 05/06/2010 Inactive Synthroid 112 mcg Tab RxNorm: 435559 1 Tablet(s) PO QD 05/06/2010 Inactive Symbicort 160 mcg-4.5 mcg/Actuation Inhalation HFA Aer osol Inhaler RxNorm: 1653038 2 Puff(s) INH BID 05/06/2010 06/08/2010 Inactive Gabapentin 800 mg Tab RxNorm: 783581 1 Tablet(s) PO QD 05/06/2010 Inactive 16.2 mg-0.1037 mg-0.0194 mg Tab RxNorm: 4894550 2 Tablet(s) PO TID PRN for gas and cramping 05/06/2010 05/12/2010 Inactive Zofran 4 mg Tab RxNorm: 830393 1 Tablet(s) PO Q4H prn nausea 200904/13/2010 Inactive MS Contin 60 mg Tab RxNorm: 266264 3 Tablet(s) PO BID 04/09/201004/22 Inactive Soma 350 mg Tab RxNorm: 650622 2 Tablet(s) PO TID 04/09/2010 05/08/20 10 Inactive Symbicort 160 mcg-4.5 mcg/Actuation Inhalation HFA Aer osol Inhaler RxNorm: 6682888 2 Puff(s) INH BID 04/08/2010 05/05/2010 Inactive Doxycycline 100 mg Cap RxNorm: 6943379 1 Capsule(s) PO BID 04/08/20 10 04/17/2010 Inactive Triamterene-Hydrochlorothiazide 37.5 mg-25 mg Cap RxNorm: 19 8316 1 Capsule(s) PO QAM 04/08/2010 09/04/2010 Inactive fluoxetine 40 mg Cap RxNorm: 536882 1 Capsule(s) PO QAM 04/08/2010 Inactive Morphine SR 120 mg multiphase 24 hr Cap RxNorm: 199878 1 Capsul e(s) PO 03/11/2010 04/07/2010 Inactive Endocet 10 mg-325 mg Tab RxNorm: 6755480 1-2 Tablet(s) PO Q4H [place] N PAIN 03/11/2010 04/09/2010 Inactive Savella 100 mg Tab RxNorm: 054814 1 Tablet(s) PO BID 03/10/201004/09 Inactive Soma 350 mg Tab RxNorm: 023383 1 Tablet(s) PO TID prn spasm 010 04/09/2010 Inactive Savella 100 mg Tab RxNorm: 194815 1 Tablet(s) PO BID 02/03/201004/09 Inactive Aspirin 81 mg Tab RxNorm: 949943 1 Tablet(s) PO QD No Start Date Active Zyrtec 10 mg Tab RxNorm: 8119546 1 Tablet(s) PO QD No Start Date Active One Touch Ultra Test Strips RxNorm: Misc test at least t wice daily. No Start Date Active coenzyme Q10 200 mg capsule RxNorm: 753382 1 Capsule(s) PO QD No Star t Date Active One Touch Ultra Test Strips RxNorm: InVt BID Zainab t blood sugar at least twice daily. No Start Date 11/10/2010 Inactive Gabapentin 800 mg Tab RxNorm: 818134 1 Tablet(s) PO QD No Start Date 05/05/2010 Inactive Abilify 5 mg tablet RxNorm: 137147 1 Tablet(s) PO QD No Start Date Inactive Chantix 1 mg Tab RxNorm: 809767 1 Tablet(s) PO BID No Start Date 10/22 Inactive Ozempic 0.25 mg or 0.5 mg (2 mg/1.5 mL) subcutaneous p en injector RxNorm: 6976498 .25 Milligram(s) SQ QW No Start Date 07/04/2019 Inactive lancets 28 gauge RxNorm: Miscellaneous As needed for blo od glucose sticks No Start Date 08/23/2013 Inactive potassium chloride ER 20 mEq tablet,extended release RxNorm: 913879 2 Tablet(s) PO QD No Start Date 09/26/2018 Inactive Ventolin HFA 90 mcg/actuation Aerosol Inhaler RxNorm: 163327 2 Puff(s) INH Q4H prn No Start Date 01/17/2012 Inactive potassium chloride ER 20 mEq tablet,extended release RxNorm: 154248 2 Tablet(s) PO QD No Start Date 10/19/2018 Inactive Januvia 100 mg tablet RxNorm: 096360 1 Tablet(s) PO QD No Start Date 09/10/2015 Inactive Medrol (Aníbal) 4 mg Tabs in a Dose Pack RxNorm: 778716 Tablet(s) PO N o Start Date 08/09/2011 Inactive as directed Zithromax Z-Aníbal 250 mg Tab RxNorm: 120459 Tablet(s) PO No Start Date 01/25/2012 Inactive as directed vitamin B6-vitamin E-magnesium tablet RxNorm: 1 Tablet(s ) PO QHS with INH No Start Date 03/30/2018 Inactive prednisone 20 mg Tab RxNorm: 994987 1 Tablet(s) PO TID for 1wk then 1 po BID for 1wk No Start Date 01/25/2012 Inactive furosemide 40 mg tablet RxNorm: 439612 1 Tablet(s) PO QAM No Start Date 10/09/2018 Inactive Vitamin D3 1000 units Capsule RxNorm: 1 Capsule(s) PO TID No S tart Date 03/19/2015 Inactive Zofran 4 mg Tab RxNorm: 433954 1 Tablet(s) PO Q4H prn nausea No Sta rt Date 04/13/2010 Inactive Premarin 0.625 mg/g Vaginal Cream RxNorm: 719640 1 Gram (s) VAG QHS 3 times a week No Start Date 09/22/2017 Inactive oxycodone 10 mg tablet RxNorm: 8711234 1-2 Tablet(s) PO QID as n eeded for pain No Start Date 11/04/2015 Inactive Nicoderm CQ 21 mg/24 hr daily Patch RxNorm: 863683 1 Applicatio n TD QD No Start Date 08/05/2015 Inactive Topamax 50 mg tablet RxNorm: 202724 1/2 Tablet(s) PO QH S for 1wk then 1 po q HS for 1wk then 2 po q HS No Start Date 06/27/2012 Inactive Chantix Starting Month Aníbal 0.5 mg (11)-1 mg (3x14) Tab s in a Dose Pack RxNorm: 681742 Tablet(s) PO as directed No Start Date 03/01/2011 Inactive Trulicity 0.75 mg/0.5 mL subcutaneous pen injector RxNorm: 1 276970 Milliliter(s) SQ No Start Date 07/04/2019 Inactive Medrol (Aníbal) 4 mg Tabs in a Dose Pack RxNorm: 449014 Tablet(s) PO N o Start Date 01/25/2012 Inactive as directed Duragesic 100 mcg/hr Transderm Patch RxNorm: 069059 2 A pplication TD Q48H for pain No Start Date 09/05/2013 Inactive Premarin 0.9 mg Tab RxNorm: 954105 1 Tablet(s) PO QD No Start Date Inactive Zithromax Z-Aníbal 250 mg Tab RxNorm: 790844 Tablet(s) PO as direc chinmay No Start Date 01/25/2012 Inactive ondansetron 8 mg disintegrating tablet RxNorm: 575185 1 Tablet(s) PO Q6H as needed No Start Date 10/10/2018 Inactive oxycodone 15 mg tablet RxNorm: 6516579 1 Tablet(s) PO QID as nee ded for pain No Start Date 03/05/2019 Inactive ProAir HFA 90 mcg/Actuation Aerosol Inhaler RxNorm: 048565 2 Puff(s) INH Q4H prn for wheezing or shortness of breath No Start Date 12/21/2011 Inactive pravastatin 40 mg tablet RxNorm: 880470 1/2 Tablet(s) PO QOD No Sta rt Date 04/09/2015 Inactive ipratropium-albuterol 0.5 mg-3 mg(2.5 mg base)/3 mL ne bulization soln RxNorm: 6145114 1 Unit Dose INH Q4H as needed No Start Date 09/09/2016 Inactive furosemide 40 mg tablet RxNorm: 099215 1 Tablet(s) PO QAM as ne eded No Start Date 09/24/2019 Inactive Vitamin D2 oral RxNorm: 4018 oral No Start Date 03/18/2015 Inacti ve pravastatin 40 mg tablet RxNorm: 860232 1/2 Tablet(s) PO QD No Star t Date 04/09/2015 Inactive ondansetron HCl 4 mg tablet RxNorm: 808119 1 Tablet(s) PO Q4H as needed for nausea and vomiting No Start Date 04/07/2016 Inactive furosemide 40 mg tablet RxNorm: 996440 2 Tablet(s) PO QAM No Start Date 09/26/2018 Inactive gabapentin 800 mg tablet RxNorm: 250829 1/2 Tablet(s) PO BID No Sta rt Date 06/21/2017 Inactive gabapentin 800 mg tablet RxNorm: 116853 1/2 Tablet(s) PO BID No Sta rt Date 07/05/2017 Inactive ProAir HFA 90 mcg/Actuation Aerosol Inhaler RxNorm: 094396 2 Puff(s) INH Q4H prn shortness of breath No Start Date 05/05/2010 Inactive scopolamine 1 mg over 3 days transdermal patch RxNorm: 09621 2 1 Application TD behind ear. Take off after three days No Start Date 10/10/2018 Inactive Metformin 500 mg Tab RxNorm: 952404 1 Tablet(s) PO QD No Start Date 0 05/05/2010 Inactive MS Contin 200 mg Tab RxNorm: 713371 1 Tablet(s) PO BID No Start Date 08/20/2011 Inactive Belladonna-Phenobarbital 48 mg tablet,extended release RxNor m: 2 Tablet(s) PO TID No Start Date 06/04/2016 Inactive Synthroid 112 mcg Tab RxNorm: 902990 1 Tablet(s) PO QD No Start Date 05/05/2010 Inactive Zegerid 40 mg-1.1 gram Cap RxNorm: 404844 1 Capsule(s) PO QD No Sta rt Date 01/25/2012 Inactive Premarin 0.625 mg/g Vaginal Cream RxNorm: 115040 VAG In sert 1gm vaginally at bedtime 3 times weekly No Start Date 01/17/2011 Inactive potassium chloride ER 20 mEq tablet,extended release RxNorm: 604963 1 Tablet(s) PO QD No Start Date 04/24/2019 Inactive methocarbamol 750 mg tablet RxNorm: 778814 2 Tablet(s) PO TID as needed for muscle spasm No Start Date 07/08/2014 Inactive Biaxin XL Aníbal 500 mg 24 hr Tab RxNorm: 930553 Tablet(s) PO as d irected No Start Date 04/24/2013 Inactive Vitamin D3 1,000 unit tablet RxNorm: 253929 3 Tablet(s) PO QD No St art Date 06/01/2017 Inactive Morphine SR 120 mg multiphase 24 hr Cap RxNorm: 872453 1 Capsul e(s) PO BID No Start Date 04/09/2010 Inactive Silvadene 1 % topical cream RxNorm: 177330 1 Application TOP BI D to burn area No Start Date 01/31/2017 Inactive Prednisone 20 mg Tab RxNorm: 392604 1 Tablet(s) PO TID for 3days then BID for 4days No Start Date 01/25/2012 Inactive gabapentin 600 mg tablet RxNorm: 603799 1 Tablet(s) PO BID No Start Date 01/21/2015 Inactive topiramate 50 mg tablet RxNorm: 060787 1 Tablet(s) PO QHS No Start Date 03/30/2018 Inactive Januvia 100 mg tablet RxNorm: 704590 1/2 Tablet(s) PO QD No Start D ate 12/25/2015 Inactive Diazepam 10 mg Tab RxNorm: 128930 1 Tablet(s) PO BID and PRN No Sta rt Date 06/08/2010 Inactive Medication Administered No Medication Administered data Immunizations Vaccine Codes Date Status Influenza CVX: 141 09/28/2012 Pneumovax Unknown 09/28/2012 Influenza (Adult) CVX: 141 09/02/2010 Results No Results data Procedures Procedure Codes Date THER/PROPH/DIAG INJ SC/IM CPT-4: 27960 07/10/2019 METHYLPREDNISOLONE INJECTION CPT-4: J2930 07/10/2019 URINALYSIS NONAUTO W/O SCOPE CPT-4: 85495 09/06/2018 URINE CULTURE/ COLONY COUNT CPT-4: 19738 09/06/2018 DRAIN/INJECT JOINT/BURSA CPT-4: 98470 04/29/2017 TRIAMCINOLONE ACET INJ NOS CPT-4: J3301 04/29/2017 DEXAMETHASONE SODIUM PHOS CPT-4: J1100 04/29/2017 INFLUENZA ASSAY W/OPTIC CPT-4: 84196 12/01/2016 RESPIRATORY CULTURE & STAIN CPT-4: 19322 07/09/2016 TB INTRADERMAL TEST CPT-4: 27989 04/21/2016 DRAIN/INJECT JOINT/BURSA CPT-4: 80017 11/07/2013 METHYLPREDNISOLONE 40 MG INJ CPT-4: J1030 11/07/2013 TRIAMCINOLONE ACET INJ NOS CPT-4: J3301 11/07/2013 DRAIN/INJECT JOINT/BURSA CPT-4: 46540 08/08/2013 METHYLPREDNISOLONE 40 MG INJ CPT-4: J1030 08/08/2013 TRIAMCINOLONE ACET INJ NOS CPT-4: J3301 08/08/2013 FLU VACCINE 3 YRS & > IM UP 64 CPT-4: 06402 2 PNEUMOCOCCAL VACC 23 ADITYA IM CPT-4: 58357 09/28/2012 IMMUNIZATION ADMIN CPT-4: 46463 09/28/2012 IMMUNIZATION ADMIN EACH ADD CPT-4: 84583 09/28/2012 FLU VACCINE 3 YRS & > IM UP 64 CPT-4: 56262 0 IMMUNIZATION ADMIN CPT-4: 81955 09/02/2010 METHYLPREDNISOLONE INJECTION CPT-4: J2930 05/07/2010 THER/PROPH/DIAG INJ SC/IM CPT-4: 05505 05/07/2010 Vital Signs Date Vital 11/29/2019 Blood [...] 1: 122/78 Code: 8480-6 BMI: 29.5 Code: 56242-8 Heart Rate 1: 76 bpm Height: 5'4" Respiratory Rate: 20 bpm SpO2: 96% Tempera ture: 37.0 (C) / 98.6 (F) Weight: 172 lbs 01/25/2019 Blood Pressure 1: 132/80 Code: 8480-6 BMI: 29.7 Code: 12452-7 Heart Rate 1: 84 bpm Height: 5'4" Respiratory Rate: 22 bpm SpO2: 98% Tempera ture: 36.9 (C) / 98.4 (F) Weight: 173 lbs 01/03/2019 Blood Pressure 1: 116/70 Code: 8480-6 BMI: 29.5 Code: 24601-1 Heart Rate 1: 92 bpm Height: 5'4" Respiratory Rate: 24 bpm SpO2: 98% Tempera ture: 37.2 (C) / 98.9 (F) Weight: 172 lbs 11/21/2018 Blood Pressure 1: 146/82 Code: 8480-6 BMI: 28.2 Code: 06483-1 Heart Rate 1: 88 bpm Height: 5'4" Respiratory Rate: 22 bpm SpO2: 97% Tempera ture: 36.9 (C) / 98.4 (F) Weight: 164 lbs 10/27/2018 Blood Pressure 1: 122/70 Code: 8480-6 BMI: 27.6 Code: 18035-0 Heart Rate 1: 88 bpm Height: 5'4" Respiratory Rate: 20 bpm SpO2: 96% Tempera ture: 36.8 (C) / 98.3 (F) Weight: 161 lbs 10/18/2018 Blood Pressure 1: 126/70 Code: 8480-6 BMI: 28.3 Code: 49408-8 Heart Rate 1: 76 bpm Height: 5'4" Respiratory Rate: 20 bpm SpO2: 95% Tempera ture: 37.0 (C) / 98.6 (F) Weight: 165 lbs 09/27/2018 Blood Pressure 1: 124/78 Code: 8480-6 BMI: 27.1 Code: 76286-5 Heart Rate 1: 88 bpm Height: 5'4" Respiratory Rate: 20 bpm SpO2: 98% Tempera ture: 36.4 (C) / 97.6 (F) Weight: 158 lbs 09/14/2018 Blood Pressure 1: 140/72 Code: 8480-6 BMI: 26.1 Code: 07893-0 Heart Rate 1: 100 bpm Height: 5'4" Respiratory Rate: 20 bpm SpO2: 97% Tempera ture: 36.9 (C) / 98.4 (F) Weight: 152 lbs 09/06/2018 Blood Pressure 1: 156/82 Code: 8480-6 BMI: 26.3 Code: 91606-4 Heart Rate 1: 100 bpm Height: 5'4" Respiratory Rate: 28 bpm SpO2: 95% Tempera ture: 37.2 (C) / 98.9 (F) Weight: 153 lbs 08/16/2018 Blood Pressure 1: 130/78 Code: 8480-6 Heart Rate 1: 87 bpm Respiratory Rate: 24 bpm SpO2: 94% Temperature: 36.9 (C) / 98.4 (F) We ight: 147 lbs 8 oz 07/07/2018 Blood Pressure 1: 116/78 Code: 8480-6 BMI: 22.7 Code: 42663-4 Heart Rate 1: 88 bpm Height: 5'4" Respiratory Rate: 22 bpm SpO2: 98% Tempera ture: 36.5 (C) / 97.7 (F) Weight: 132 lbs 05/31/2018 Blood Pressure 1: 128/78 Code: 8480-6 BMI: 22.3 Code: 30689-9 Heart Rate 1: 92 bpm Height: 5'4" Respiratory Rate: 26 bpm SpO2: 94% Tempera ture: 36.7 (C) / 98.1 (F) Weight: 130 lbs 03/31/2018 Blood Pressure 1: 136/78 Code: 8480-6 BMI: 21.5 Code: 83760-1 Heart Rate 1: 76 bpm Height: 5'4" Respiratory Rate: 24 bpm SpO2: 95% Tempera ture: 36.8 (C) / 98.3 (F) Weight: 125 lbs 01/26/2018 Blood Pressure 1: 142/64 Code: 8480-6 BMI: 20.6 Code: 54050-9 Heart Rate 1: 90 bpm Height: 5'4" Respiratory Rate: 24 bpm SpO2: 92% Tempera ture: 36.3 (C) / 97.3 (F) Weight: 120 lbs 10/26/2017 Blood Pressure 1: 124/70 Code: 8480-6 BMI: 20.3 Code: 12328-5 Heart Rate 1: 76 bpm Height: 5'4" Respiratory Rate: 22 bpm SpO2: 94% Tempera ture: 36.7 (C) / 98.1 (F) Weight: 118 lbs 09/23/2017 Blood Pressure 1: 106/70 Code: 8480-6 BMI: 19.2 Code: 99356-7 Heart Rate 1: 76 bpm Height: 5'4" Respiratory Rate: 20 bpm SpO2: 94% Tempera ture: 36.8 (C) / 98.3 (F) Weight: 112 lbs 08/12/2017 Blood Pressure 1: 116/68 Code: 8480-6 BMI: 20.1 Code: 61838-7 Heart Rate 1: 80 bpm Height: 5'4" Respiratory Rate: 22 bpm SpO2: 95% Tempera ture: 36.8 (C) / 98.2 (F) Weight: 117 lbs 07/06/2017 Blood Pressure 1: 136/78 Code: 8480-6 BMI: 20.6 Code: 51643-6 Heart Rate 1: 76 bpm Height: 5'4" Respiratory Rate: 24 bpm SpO2: 96% Tempera ture: 36.8 (C) / 98.2 (F) Weight: 120 lbs 06/02/2017 Blood Pressure 1: 112/70 Code: 8480-6 Heart Rate 1: 92 bpm Height: 5'4" Respiratory Rate: 24 bpm SpO2: 95% Temperature: 37.0 (C) / 98.6 (F) Weight: 04/29/2017 Blood Pressure 1: 94/52 Code: 8480-6 BMI: 19.6 C ode: 22228-4 Heart Rate 1: 84 bpm Height: 5'4" [...] 92/58 Code: 8480-6 BMI: 19.2 C ode: 40433-3 Heart Rate 1: 84 bpm Height: 5'4" Respiratory Rate: 26 bpm SpO2: 95% Tempera ture: 36.7 (C) / 98.0 (F) Weight: 112 lbs 12/01/2016 Blood Pressure 1: 114/70 Code: 8480-6 BMI: 19.2 Code: 36672-8 Heart Rate 1: 96 bpm Height: 5'4" Respiratory Rate: 28 bpm SpO2: 93% Tempera ture: 38.3 (C) / 101.0 (F) Weight: 112 lbs 10/27/2016 Blood Pressure 1: 126/66 Code: 8480-6 BMI: 19.6 Code: 78457-1 Heart Rate 1: 92 bpm Height: 5'4" Respiratory Rate: 28 bpm SpO2: 90% Tempera ture: 36.8 (C) / 98.3 (F) Weight: 114 lbs 09/09/2016 Blood Pressure 1: 126/74 Code: 8480-6 Heart Rate 1: 104 bpm Height: 5'4" Respiratory Rate: 32 bpm SpO2: 88% Temperature: 37 .2 (C) / 99.0 (F) 08/26/2016 Blood Pressure 1: 134/82 Code: 8480-6 BMI: 22.0 Code: 22990-5 Heart Rate 1: 84 bpm Height: 5'4" Respiratory Rate: 24 bpm SpO2: 94% Tempera ture: 36.8 (C) / 98.3 (F) Weight: 128 lbs 05/21/2016 Blood Pressure 1: 142/80 Code: 8480-6 BMI: 21.6 Code: 59661-7 Heart Rate 1: 104 bpm Height: 5'4" Respiratory Rate: 22 bpm SpO2: 93% Tempera ture: 36.0 (C) / 96.8 (F) Weight: 126 lbs 03/25/2016 Blood Pressure 1: 126/62 Code: 8480-6 Heart Rate 1: 88 bpm Respiratory Rate: 20 bpm SpO2: 92% Temperature: 36.8 (C) / 98.3 (F) We ight: 130 lbs 01/23/2016 Blood Pressure 1: 146/82 Code: 8480-6 BMI: 24.1 Code: 55221-4 Heart Rate 1: 92 bpm Height: 5'3" Respiratory Rate: 22 bpm Temperature: 37 .1 (C) / 98.8 (F) Weight: 136 lbs 12/26/2015 Blood Pressure 1: 142/78 Code: 8480-6 BMI: 24.6 Code: 66087-8 Heart Rate 1: 78 bpm Height: 5'3" Respiratory Rate: 20 bpm Temperature: 36 .7 (C) / 98.1 (F) Weight: 139 lbs 12/03/2015 Blood Pressure 1: 126/60 Code: 8480-6 BMI: 24.6 Code: 90966-1 Heart Rate 1: 100 bpm Height: 5'3" Respiratory Rate: 28 bpm Temperature: 37 .6 (C) / 99.6 (F) Weight: 139 lbs 09/10/2015 Blood Pressure 1: 124/64 Code: 8480-6 BMI: 23.7 Code: 75088-1 Heart Rate 1: 88 bpm Height: 5'3" Respiratory Rate: 24 bpm SpO2: 95% Tempera ture: 36.4 (C) / 97.6 (F) Weight: 134 lbs 08/06/2015 Blood Pressure 1: 114/76 Code: 8480-6 BMI: 23.2 Code: 39654-8 Heart Rate 1: 88 bpm Height: 5'3" Respiratory Rate: 22 bpm Temperature: 36 .6 (C) / 97.9 (F) Weight: 131 lbs 07/18/2015 Blood Pressure 1: 144/78 Code: 8480-6 BMI: 23.7 Code: 92927-7 Heart Rate 1: 84 bpm Height: 5'3" Respiratory Rate: 20 bpm Temperature: 37 .2 (C) / 99.0 (F) Weight: 134 lbs 04/10/2015 Blood Pressure 1: 110/64 Code: 8480-6 Heart Rate 1: 80 bpm Height: Respiratory Rate: 20 bpm Temperature: 37.1 (C) / 98.8 (F) Weight: 03/05/2015 Blood Pressure 1: 136/80 Code: 8480-6 BMI: 23.9 Code: 48823-7 Heart Rate 1: 76 bpm Height: 5'3" Respiratory Rate: 24 bpm Temperature: 37 .0 (C) / 98.6 (F) Weight: 135 lbs 01/30/2015 Blood Pressure 1: 142/80 Code: 8480-6 BMI: 23.0 Code: 97732-9 Heart Rate 1: 96 bpm Height: 5'3" Respiratory Rate: 22 bpm Temperature: 36 .2 (C) / 97.2 (F) Weight: 130 lbs 01/02/2015 Blood Pressure 1: 124/70 Code: 8480-6 BMI: 23.4 Code: 58294-1 Heart Rate 1: 84 bpm Height: 5'3" Respiratory Rate: 24 bpm SpO2: 95% Tempera ture: 36.9 (C) / 98.5 (F) Weight: 132 lbs 10/03/2014 Blood Pressure 1: 106/68 Code: 8480-6 BMI: 22.5 Code: 68824-2 Heart Rate 1: 88 bpm Height: 5'3" Respiratory Rate: 24 bpm Temperature: 37 .0 (C) / 98.6 (F) Weight: 127 lbs 08/27/2014 Blood Pressure 1: 124/68 Code: 8480-6 BMI: 21.1 Code: 14000-3 Heart Rate 1: 88 bpm Height: 5'3" [...] 1: 120/70 Code: 8480-6 BMI: 19.2 Code: 16884-8 Heart Rate 1: 70 bpm Height: 5'4" Respiratory Rate: 20 bpm Temperature: 36 .9 (C) / 98.4 (F) Weight: 112 lbs 06/28/2013 Blood Pressure 1: 102/68 Code: 8480-6 BMI: 19.6 Code: 05787-3 Heart Rate 1: 76 bpm Height: 5'4" Respiratory Rate: 20 bpm Temperature: 36 .8 (C) / 98.2 (F) Weight: 114 lbs 05/31/2013 Blood Pressure 1: 106/70 Code: 8480-6 BMI: 18.9 Code: 02507-4 Heart Rate 1: 100 bpm Height: 5'4" Respiratory Rate: 20 bpm Temperature: 36 .4 (C) / 97.6 (F) Weight: 110 lbs 05/03/2013 Blood Pressure 1: 126/70 Code: 8480-6 BMI: 19.1 Code: 44277-4 Heart Rate 1: 88 bpm Height: 5'4" Respiratory Rate: 20 bpm Temperature: 37 .1 (C) / 98.8 (F) Weight: 111 lbs 04/25/2013 Blood Pressure 1: 114/68 Code: 8480-6 BMI: 19.4 Code: 67147-1 Heart Rate 1: 92 bpm Height: 5'4" Respiratory Rate: 24 bpm SpO2: 96% Tempera ture: 37.7 (C) / 99.8 (F) Weight: 113 lbs 03/08/2013 Blood Pressure 1: 94/68 Code: 8480-6 BMI: 21.3 C ode: 85508-2 Heart Rate 1: 88 bpm Height: 5'4" Respiratory Rate: 24 bpm Temperature: 37 .0 (C) / 98.6 (F) Weight: 124 lbs 02/07/2013 Blood Pressure 1: 106/64 Code: 8480-6 BMI: 21.8 Code: 92291-7 Heart Rate 1: 84 bpm Height: 5'4" Respiratory Rate: 22 bpm Temperature: 36 .8 (C) / 98.2 (F) Weight: 127 lbs 01/10/2013 Blood Pressure 1: 122/68 Code: 8480-6 BMI: 21.6 Code: 66005-5 Heart Rate 1: 94 bpm Height: 5'4" SpO2: 94% Temperature: 36.7 (C) / 98.1 (F) Weight: 126 lbs 09/28/2012 Blood Pressure 1: 124/78 Code: 8480-6 BMI: 24.9 Code: 89015-2 Heart Rate 1: 92 bpm Height: 5'4" Respiratory Rate: 20 bpm Temperature: 36 .7 (C) / 98.1 (F) Weight: 145 lbs 06/28/2012 Blood Pressure 1: 134/80 Code: 8480-6 BMI: 24.9 Code: 45830-1 Heart Rate 1: 76 bpm Height: 5'4" Respiratory Rate: 20 bpm Temperature: 36 .8 (C) / 98.2 (F) Weight: 145 lbs 05/03/2012 Blood Pressure 1: 108/62 Code: 8480-6 BMI: 25.6 Code: 19762-6 Heart Rate 1: 88 bpm Height: 5'4" Temperature: 36.2 (C) / 97.2 (F) Weight: 149 lbs 03/01/2012 Blood Pressure 1: 124/66 Code: 8480-6 BMI: 25.1 Code: 66045-8 Heart Rate 1: 76 bpm Height: 5'4" Respiratory Rate: 20 bpm Temperature: 36 .6 (C) / 97.9 (F) Weight: 146 lbs 01/26/2012 Blood Pressure 1: 118/82 Code: 8480-6 BMI: 25.1 Code: 08845-5 Heart Rate 1: 74 bpm Height: 5'4" Temperature: 36.8 (C) / 98.2 (F) Weight: 146 lbs 11/03/2011 Blood Pressure 1: 126/80 Code: 8480-6 BMI: 27.3 Code: 03477-8 Heart Rate 1: 72 bpm Height: 5'4" [...] up 05/31/2013 sores 05/03/2013 follow up 04/25/2013 [facility] fw pain, generalized 03/08/2013 follow up 02/07/2013 1mo fwup follow up 01/10/2013 follow up 09/28/2012 2mo fwup follow up 06/28/2012 2mo fwup follow up 05/03/2012 follow up 03/01/2012 1mo fwup diabetes mellitus 01/26/2012 follow up 11/03/2011 3mo fwup follow up 08/10/2011 1mo fwup cough 07/15/2011 cough 03/19/2011 follow up 01/28/2011 1mo fwup follow up 12/17/2010 [facility] fwup follow up 2010 2wk fwup arthralgia(s) 10/02/2010 neck pain 09/24/2010 right sided, feels k not in thigh follow up 09/02/2010 2wk fwup back pain 07/14/2010 had epidural beginni ng of Jun, seems to be wearing off the last 3 days follow up 05/07/2010 depression 04/08/2010 savella not helping, wants to retry prozac Encounters Encounter Performer Location Codes Date ([id number]) OFFICE/OUTPATIENT VISIT EST Diagnosis: Chronic pain syndrome[ICD10: G89.4] Diagnosis: Localized edema[ICD10: R60.0] Diagnosis: Chronic obstructive pulmonary disease, unspecified[ICD10: J44.9] Diagnosis: Other fatigue[ICD10: R53.83] Diagnosis: Muscle weakness (generalized)[ICD10: M62.81] Diagnosis: Spinal stenosis, lumbar region with neurogenic claudication[ICD10: M48.062] Vika RENTERIA DO [facility] CPT-4: 20964 11/29/2019 ([id number]) OFFICE/OUTPATIENT VISIT EST Diagnosis: Chronic pain syndrome[ICD10: G89.4] Diagnosis: Lumbar degenerative disc disease[ICD10: M51.36] Diagnosis: Muscle spasm[ICD10: M62.838] Diagnosis: Spinal stenosis, lumbar region with neurogenic claudication[ICD10: M48.062] Diagnosis: Spondylosis without myelopathy or radiculopathy, 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
--- OUTSIDE RECORDS SUMMARY | 2020-04-24 23:10 | XMS REPORT | CCD ---
Author Author Yana Renteria D.O. Organization [facility] Address [address] [place] [address] Phone Care Team Providers Care Dish Stacker Name Role Phone Vika Renteria D.O., PP Unavailable CCM Unavailable Summary Purpose Interface Exchange Insurance Providers Payer name Policy type / Coverage type Covered constitution party ID Effective Begin Date Effective End Date [employer] [facility] [place] Medicaid [id number] 2018 U nknown Family History Family History data not found Social History Social History Element Codes Description Effective Dates Marital status Unknown 06/28/[address]: [id number] Currently smokes tobacco 05/2013 Allergies, Adverse Reactions, [...] ProAir HFA 90 mcg/actuation aerosol inhaler RxNorm: 438460 INHALE ONE PUFF BY MOUTH EVERY 4 HOURS FOR WHEEZING OR FOR SHORTNESS OF BREATH 01/04/2020 No Stop Date Active metformin 500 mg tablet RxNorm: 136371 1 Tablet(s) Oral QD 01/04/20 20 04/02/2020 Active MS Contin 200 mg tablet,extended release RxNorm: 989118 1 Tablet(s) Oral two times a day 01/02/2020 01/31/2020 Active Pulmicort 1 mg/2 mL suspension for nebulization RxNorm: 6168 19 USE ONE VIAL VIA NEBULIZER BY MOUTH TWICE A DAY 12/21/2019 No Stop Date Active furosemide 40 mg tablet RxNorm: 476638 TAKE ONE TABLET BY MOUTH EVERY MORNING NEEDED 12/20/2019 No Stop Date Active levothyroxine 25 mcg tablet RxNorm: 774568 TAKE ONE TAB LET BY MOUTH EVERY MORNING 12/20/2019 No Stop Date Active MS Contin 200 mg tablet,extended release RxNorm: 803057 1 Tablet(s) Oral two times a day 12/05/2019 01/01/2020 Inactive Medrol (Aníbal) 4 mg tablets in a dose pack RxNorm: 869475 6 Tablet(s) Oral QD --then as directed 11/30/2019 12/05/2019 Inactive MS Contin 200 mg tablet,extended release RxNorm: 880955 1 Tablet(s) Oral two times a day 11/29/2019 12/04/2019 Inactive cyclobenzaprine 10 mg tablet RxNorm: 612127 TAKE ONE TA BLET BY MOUTH THREE TIMES A DAY NEEDED 11/21/2019 No Stop Date Active MS Contin 200 mg tablet,extended release RxNorm: 117539 1 Tablet(s) Oral two times a day replaces 100mg dose 11/03/2019 11/02/2019 Inactive MS Contin 200 mg tablet,extended release RxNorm: 986153 1 Tablet(s) Oral two times a day replaces 100mg dose 11/03/2019 11/29/2019 Inactive ferrous sulfate 325 mg (65 mg iron) tablet RxNorm: 277438 1 Tab let(s) Oral QD 10/30/2019 No Stop Date Active MS Contin 100 mg tablet,extended release RxNorm: 926231 1 Table t(s) Oral QD 10/30/2019 10/29/2019 Inactive MS Contin 100 mg tablet,extended release RxNorm: 022075 1 Table t(s) Oral QD 10/30/2019 11/02/2019 Inactive Relistor 150 mg tablet RxNorm: 9132869 TAKE THREE TABLETS BY BENOIT TH DAILY 10/25/2019 No Stop Date Active pantoprazole 40 mg tablet,delayed release RxNorm: 155826 1 Tabl et(s) Oral QD 10/25/2019 No Stop Date Active Minipress 2 mg capsule RxNorm: 094673 1 Capsule(s) Oral QAM and 3 at bedtime 10/25/2019 No Stop Date Active Lancets, Super Thin RxNorm: 1 Unit Dose Miscellaneous QD 9 11/27/2020 Active Cymbalta 60 mg capsule,delayed release RxNorm: 254962 1 Capsule (s) Oral QAM 10/25/2019 No Stop Date Active Cymbalta 30 mg capsule,delayed release RxNorm: 341698 1 Capsule (s) Oral QAM 10/25/2019 No Stop Date Active oxycodone 15 mg tablet RxNorm: 3865041 1 Tablet(s) Oral four times a day as needed for pain 10/25/2019 11/28/2019 Inactive metformin 500 mg tablet RxNorm: 869899 1 Tablet(s) Oral QD 10/25/20 19 01/03/2020 Inactive levothyroxine 25 mcg tablet RxNorm: 499366 1 Tablet(s) Oral QAM 02/201912/19/2019 Inactive levothyroxine 25 mcg tablet RxNorm: 312873 1 Tablet(s) Oral QAM 02/201910/24/2019 Inactive MS Contin 100 mg tablet,extended release RxNorm: 229043 1 Tablet(s) Oral two times a day replaces fentanyl 10/25/2019 10/25/2019 Inactive Premarin 0.45 mg tablet RxNorm: 078209 TAKE ONE TABLET BY MOUTH DAILY 10/24/2019 No Stop Date Active Duragesic 100 mcg/hr transdermal patch RxNorm: 127397 2 Application TD Q48H for pain 10/18/2019 10/24/2019 Inactive gabapentin 300 mg capsule RxNorm: 770430 TAKE ONE CAPSULE BY MO UTH TWICE A DAY 10/16/2019 No Stop Date Active cyclobenzaprine 10 mg tablet RxNorm: 801054 TAKE ONE TA BLET BY MOUTH THREE TIMES A DAY NEEDED 09/27/2019 11/20/2019 Inactive Relistor 150 mg tablet RxNorm: 7323782 TAKE THREE TABLETS BY BENOIT TH DAILY 09/25/2019 10/24/2019 Inactive ProAir HFA 90 mcg/actuation aerosol inhaler RxNorm: 138011 INHALE ONE PUFF BY MOUTH EVERY 4 HOURS FOR WHEEZING OR FOR SHORTNESS OF BREATH 09/25/2019 01/03/2020 Inactive furosemide 40 mg tablet RxNorm: 305465 1 Tablet(s) Oral QAM as needed 09/25/2019 09/25/2019 Inactive oxycodone 15 mg tablet RxNorm: 0743358 1 Tablet(s) PO QID as nee ded for pain 09/21/2019 10/24/2019 Inactive Duragesic 100 mcg/hr transdermal patch RxNorm: 560225 2 Application TD Q48H for pain 09/19/2019 10/17/2019 Inactive Daliresp 500 mcg tablet RxNorm: 3258994 1 Tablet(s) Oral QD 019 03/08/2020 Active potassium chloride ER 20 mEq tablet,extended release RxNorm: 952869 TAKE ONE TABLET BY MOUTH DAILY 07/25/2019 01/20/2020 Active Relistor 150 mg tablet RxNorm: 7536695 TAKE THREE TABLETS BY BENOIT TH DAILY 07/25/2019 07/30/2019 Inactive cyclobenzaprine 10 mg tablet RxNorm: 708171 TAKE ONE TA BLET BY MOUTH THREE TIMES A DAY NEEDED 07/25/2019 09/22/2019 Inactive fluoxetine 40 mg capsule RxNorm: 979182 TAKE ONE CAPSULE BY BENOIT TH EVERY MORNING 07/11/2019 10/24/2019 Inactive Medrol (Aníbal) 4 mg tablets in a dose pack RxNorm: 160674 6 Tablet(s) PO QD --then as directed 07/10/2019 07/15/2019 Inactive omeprazole 40 mg capsule,delayed release RxNorm: 739706 1 Capsule(s) PO QD for stomach TAKE ONE CAPSULE BY MOUTH DAILY 07/10/2019 10/24/2019 Inactive Augmentin 875 mg-125 mg tablet RxNorm: 799642 1 Tablet(s) PO BID 07/16/2019 Inactive Trulicity 0.75 mg/0.5 mL subcutaneous pen injector RxNorm: 1 423505 0.75 Milliliter(s) SQ weekly 07/05/2019 10/24/2019 Inactive Compazine 10 mg tablet RxNorm: 406074 TAKE ONE TABLET B Y MOUTH FOUR TIMES A DAY NEEDED FOR NAUSEA 06/20/2019 07/19/2019 Inactive ProAir HFA 90 mcg/actuation aerosol inhaler RxNorm: 894325 INHALE ONE PUFF BY MOUTH EVERY 4 HOURS FOR WHEEZING OR FOR SHORTNESS OF BREATH 06/20/2019 06/23/2019 Inactive Daliresp 500 mcg tablet RxNorm: 0092962 TAKE ONE TABLET BY MOUTH DAILY 06/12/2019 09/10/2019 Inactive sjvsshbg-rrlzavibl-oldkknlmx 3.5 mg/mL-10,000 unit/mL- 1 % ear solution RxNorm: 888838 4 Drop(s) otic (ear) TID to left ear 06/05/2019 10/24/2019 Inac tive furosemide 40 mg tablet RxNorm: 575890 TAKE ONE TABLET BY MOUTH EVERY MORNING 05/26/2019 07/09/2019 Inactive Duragesic 100 mcg/hr transdermal patch RxNorm: 258954 2 Application TD Q48H for pain 05/16/2019 06/14/2019 Inactive oxycodone 15 mg tablet RxNorm: 1347506 1 Tablet(s) PO QID as nee ded for pain 05/10/2019 09/20/2019 Inactive doxycycline hyclate 100 mg capsule RxNorm: 9483444 1 Capsule(s) PO BID 05/03/2019 05/12/2019 Inactive prednisone 20 mg tablet RxNorm: 919503 1 Tablet(s) PO T ID for 3 days then 1 po BID for 3 days then one daily for 3 days 05/03/2019 07/11/2019 Inactiv e Ozempic 0.25 mg or 0.5 mg (2 mg/1.5 mL) subcutaneous p en injector RxNorm: 0196911 0.5 Milligram(s) SQ QW 05/03/2019 07/09/2019 Inactive fluconazole 100 mg tablet RxNorm: 622892 1 Tablet(s) PO QD 05/03/20 19 05/07/2019 Inactive Premarin 0.45 mg tablet RxNorm: 595147 TAKE ONE TABLET BY MOUTH DAILY 05/03/2019 10/23/2019 Inactive potassium chloride ER 20 mEq tablet,extended release RxNorm: 219506 1 Tablet(s) PO QD 04/27/2019 07/25/2019 Inactive potassium chloride ER 20 mEq tablet,extended release RxNorm: 619205 1 Tablet(s) PO QD 04/25/2019 04/26/2019 Inactive Compazine 10 mg tablet RxNorm: 586497 1 Tablet(s) PO QID as nee ded for nausea 04/25/2019 05/04/2019 Inactive ProAir HFA 90 mcg/actuation aerosol inhaler RxNorm: 152996 INHALE ONE PUFF BY MOUTH EVERY 4 HOURS FOR WHEEZING OR FOR SHORTNESS OF BREATH 04/12/2019 06/10/2019 Inactive Medrol (Aníbal) 4 mg tablets in a dose pack RxNorm: 251152 6 Tablet(s) PO QD --then as directed 04/11/2019 04/16/2019 Inactive Symbicort 160 mcg-4.5 mcg/actuation HFA aerosol inhaler RxNo rm: 6437581 2 Puff(s) INH BID 04/10/2019 10/06/2019 Inactive levothyroxine 50 mcg tablet RxNorm: 332849 1 Tablet(s) PO QD 201810/24/2019 Inactive gabapentin 300 mg capsule RxNorm: 963234 1 Capsule(s) PO BID 201810/02/2019 Inactive Symbicort 160 mcg-4.5 mcg/actuation HFA aerosol inhaler RxNo rm: 1293041 2 Puff(s) INH BID 04/06/2019 04/09/2019 Inactive oxycodone 15 mg tablet RxNorm: 2592279 1 Tablet(s) PO QID as nee ded for pain 04/05/2019 05/09/2019 Inactive levothyroxine 50 mcg tablet RxNorm: 049121 1 Tablet(s) PO QD 201804/09/2019 Inactive furosemide 40 mg tablet RxNorm: 910420 TAKE ONE TABLET BY MOUTH EVERY MORNING 03/21/2019 04/19/2019 Inactive levothyroxine 50 mcg tablet RxNorm: 309106 TAKE ONE TABLET BY M OUTH DAILY 03/21/2019 03/27/2019 Inactive Duragesic 100 mcg/hr transdermal patch RxNorm: 637070 2 Application TD Q48H for pain 03/13/2019 04/11/2019 Inactive oxycodone 15 mg tablet RxNorm: 7739444 1 Tablet(s) PO QID as nee ded for pain 03/06/2019 04/04/2019 Inactive Relistor 150 mg tablet RxNorm: 0657973 3 Tablet(s) PO QD 02/28/2019 0 05/28/2019 Inactive cyclobenzaprine 10 mg tablet RxNorm: 302034 1 Tablet(s) PO TID as needed 02/28/2019 05/28/2019 Inactive phentermine 37.5 mg tablet RxNorm: 559712 1 Tablet(s) PO QAM 201803/15/2019 Inactive Duragesic 100 mcg/hr transdermal patch RxNorm: 276481 2 Application TD Q48H for pain 02/09/2019 03/10/2019 Inactive Daliresp 500 mcg tablet RxNorm: 5247646 TAKE ONE TABLET BY MOUTH DAILY 01/31/2019 05/30/2019 Inactive Premarin 0.45 mg tablet RxNorm: 458405 1 Tablet(s) PO QD 01/31/2019 0 04/30/2019 Inactive fluoxetine 40 mg capsule RxNorm: 702287 Capsule(s) TAKE ONE CAPSULE BY MOUTH EVERY MORNING 01/31/2019 04/30/2019 Inactive levothyroxine 50 mcg tablet RxNorm: 090793 1 Tablet(s) PO QD 201804/10/2019 Inactive follow up in 3 weeks levothyroxine 50 mcg tablet RxNorm: 659050 1 Tablet(s) PO QD 201801/25/2019 Inactive follow up in 3 weeks potassium chloride ER 20 mEq tablet,extended release RxNorm: 314454 2 Tablet(s) PO BID 01/23/2019 02/14/2019 Inactive Synthroid 50 mcg tablet RxNorm: 019576 TAKE ONE TABLET BY MOUTH DAILY 01/16/2019 10/24/2019 Inactive potassium chloride ER 20 mEq tablet,extended release RxNorm: 459664 2 Tablet(s) PO BID 01/04/2019 01/22/2019 Inactive ProAir HFA 90 mcg/actuation aerosol inhaler RxNorm: 586554 INHALE ONE PUFF BY MOUTH EVERY 4 HOURS FOR WHEEZING OR SHORTNESS OF BREATH 01/04/201902/20 Inactive Request already responded to by other me ans (e.g. phone or fax) ProAir HFA 90 mcg/actuation aerosol inhaler RxNorm: 8153927 INHALE ONE PUFF BY MOUTH EVERY 4 HOURS FOR WHEEZING OR SHORTNESS OF BREATH 01/02/201912/23 Inactive gabapentin 300 mg capsule RxNorm: 963774 TAKE ONE CAPSULE BY MO UTH TWICE A DAY 12/30/2018 04/06/2019 Inactive furosemide 40 mg tablet RxNorm: 225620 1 Tablet(s) PO QAM 12/26/2018 02/23/2019 Inactive Compazine 10 mg tablet RxNorm: 243177 1 Tablet(s) PO QID as nee ded for nausea 12/07/2018 12/16/2018 Inactive metformin ER 500 mg tablet,extended release 24 hr RxNorm: 86 0975 TAKE ONE TABLET BY MOUTH DAILY 12/05/2018 01/04/2020 Inactive metolazone 2.5 mg tablet RxNorm: 053770 TAKE ONE TABLET BY MOUT H EVERY MORNING 12/05/2018 01/03/2019 Inactive Synthroid 50 mcg tablet RxNorm: 606716 1 Tablet(s) PO QD 11/25/2018 0 01/03/2019 Inactive DC any other synthroid strengths. Should be 50mcg only cyclobenzaprine 10 mg tablet RxNorm: 093583 TAKE ONE TA BLET BY MOUTH THREE TIMES A DAY NEEDED 11/09/2018 02/06/2019 Inactive metolazone 2.5 mg tablet RxNorm: 093791 1 Tablet(s) PO QAM repl aces 5mg dose 11/02/2018 12/01/2018 Inactive potassium chloride ER 20 mEq tablet,extended release RxNorm: 507977 2 Tablet(s) PO QD 2018 01/02/2019 Inactive Compazine 10 mg tablet RxNorm: 553151 1 Tablet(s) PO QID as nee ded for nausea 10/18/2018 12/07/2018 Inactive furosemide 40 mg tablet RxNorm: 865926 1 Tablet(s) PO QAM 10/12/2018 12/10/2018 Inactive ondansetron 8 mg disintegrating tablet RxNorm: 789567 1 Tablet(s) PO Q6H as needed 10/11/2018 10/17/2018 Inactive scopolamine 1 mg over 3 days transdermal patch RxNorm: 34011 2 1 Application TD behind ear. Take off after three days 10/11/2018 01/02/2019 Inactive furosemide 40 mg tablet RxNorm: 977982 1 Tablet(s) PO QAM 10/10/2018 12/26/2018 Inactive metolazone 5 mg tablet RxNorm: 386432 1 Tablet(s) PO QAM 10/06/2018 1 01/03/2018 Inactive metolazone 5 mg tablet RxNorm: 679515 1 Tablet(s) PO QAM 10/06/2018 1 12/05/2017 Inactive Xtampza ER 36 mg capsule sprinkle RxNorm: 8295037 1 Capsule(s) P O BID 10/05/2018 01/02/2019 Inactive Xtampza ER 36 mg capsule sprinkle RxNorm: 1836696 1 Capsule(s) P O BID 10/05/2018 02/12/2019 Inactive omeprazole 40 mg capsule,delayed release RxNorm: 660254 TAKE ONE CAPSULE BY MOUTH DAILY 10/03/2018 12/31/2018 Inactive Duragesic 100 mcg/hr transdermal patch RxNorm: 948954 2 Application TD Q48H for pain 09/30/2018 10/29/2018 Inactive Synthroid 50 mcg tablet RxNorm: 570405 1 Tablet(s) PO QD 09/29/2018 0 11/25/2018 Inactive DC any other synthroid strengths. Should be 50mcg only Synthroid 50 mcg tablet RxNorm: 072649 1 Tablet(s) PO QD 09/29/2018 1 11/28/2017 Inactive furosemide 40 mg tablet RxNorm: 565064 2 Tablet(s) PO Q AM for 1 week then every other day for 2 weeks 09/27/2018 10/12/2018 Inactive fluoxetine 40 mg capsule RxNorm: 446367 2 Capsule(s) PO QD 09/27/20 18 10/17/2018 Inactive potassium chloride ER 20 mEq tablet,extended release RxNorm: 527071 2 Tablet(s) PO QD for 1 week then every other day for 2 weeks 09/27/2018 2018 Inactive ProAir HFA 90 mcg/actuation aerosol inhaler RxNorm: 0455216 INHALE ONE PUFF BY MOUTH EVERY 4 HOURS FOR WHEEZING OR SHORTNESS OF BREATH 09/26/201811/23 Inactive Synthroid 75 mcg tablet RxNorm: 746387 1 Tablet(s) PO QD 09/09/2018 1 Inactive Synthroid 75 mcg tablet RxNorm: 261907 1 Tablet(s) PO QD 09/09/2018 1 11/28/2017 Inactive furosemide 40 mg tablet RxNorm: 220012 1 Tablet(s) PO QD 09/06/2018 1 Inactive potassium chloride ER 20 mEq tablet,extended release RxNorm: 474238 1 Tablet(s) PO QD 09/06/2018 09/19/2018 Inactive Duragesic 100 mcg/hr transdermal patch RxNorm: 690184 2 Application TD Q48H for pain 08/30/2018 09/28/2018 Inactive gabapentin 300 mg capsule RxNorm: 241496 TAKE ONE CAPSULE BY MO [facility] TWICE A DAY 08/23/2018 12/20/2018 Inactive Daliresp 500 mcg tablet RxNorm: 1981852 TAKE ONE TABLET BY MOUTH DAILY 08/23/2018 01/19/2019 Inactive Pulmicort 1 mg/2 mL suspension for nebulization RxNorm: 6168 19 USE ONE VIAL VIA NEBULIZER BY MOUTH TWICE A DAY 08/23/2018 07/11/2019 Inactive Synthroid 88 mcg tablet RxNorm: 404934 1 Tablet(s) PO QD 08/19/2018 Inactive Medrol (Aníbal) 4 mg tablets in a dose pack RxNorm: 097712 Tablet(s) PO take as directed 08/16/2018 09/05/2018 Inactive Relistor 150 mg tablet RxNorm: 6218838 3 Tablet(s) PO QD 08/16/2018 1 Inactive Zithromax Z-Aníbal 250 mg tablet RxNorm: 551306 Tablet(s) PO take as directed 08/16/2018 09/05/2018 Inactive cyclobenzaprine 10 mg tablet RxNorm: 769175 1 Tablet(s) PO TID as needed 08/16/2018 11/08/2018 Inactive Synthroid 88 mcg tablet RxNorm: 206581 1 Tablet(s) PO Q D NEEDS UPDATED LABS BEFORE FURTHER REFILLS 08/08/2018 08/19/2018 Inactive Premarin 0.45 mg tablet RxNorm: 970295 1 Tablet(s) PO QD 08/03/2018 0 01/31/2019 Inactive fluoxetine 20 mg capsule RxNorm: 474047 TAKE ONE CAPSULE BY BENOIT TH DAILY 08/03/2018 09/26/2018 Inactive Xtampza ER 36 mg capsule sprinkle RxNorm: 3962325 1 Capsule(s) P O BID 08/03/2018 09/01/2018 Inactive metformin ER 500 mg tablet,extended release 24 hr RxNorm: 86 0975 1 Tablet(s) PO QD 08/03/2018 10/31/2018 Inactive Symbicort 160 mcg-4.5 mcg/actuation HFA aerosol inhaler RxNo rm: 6807036 2 Puff(s) INH BID 08/03/2018 01/29/2019 Inactive Duragesic 100 mcg/hr transdermal patch RxNorm: 058954 2 Application TD Q48H for pain 07/29/2018 08/27/2018 Inactive ProAir HFA 90 mcg/actuation aerosol inhaler RxNorm: 452942 INHALE TWO PUFFS BY MOUTH EVERY 4 HOURS FOR WHEEZING OR SHORTNESS OF BREATH 07/27/201802/2018 Inactive Relistor 150 mg tablet RxNorm: 4168007 3 Tablet(s) PO QD 07/20/2018 0 08/15/2018 Inactive metformin ER 500 mg tablet,extended release 24 hr RxNorm: 86 0975 TAKE ONE TABLET BY MOUTH DAILY 07/08/2018 08/02/2018 Inactive fluoxetine 40 mg capsule RxNorm: 040780 TAKE ONE CAPSULE BY BENOIT TH EVERY MORNING 07/08/2018 10/05/2018 Inactive Xtampza ER 18 mg capsule sprinkle RxNorm: 8445361 1 Capsule(s) P O BID 07/08/2018 08/02/2018 Inactive Relistor 150 mg tablet RxNorm: 1919609 3 Tablet(s) PO QD 07/08/2018 0 07/12/2018 Inactive Synthroid 88 mcg tablet RxNorm: 396787 1 Tablet(s) PO Q D NEEDS UPDATED LABS BEFORE FURTHER REFILLS 06/23/2018 07/07/2018 Inactive fluoxetine 40 mg capsule RxNorm: 046901 TAKE ONE CAPSULE BY BENOIT TH EVERY MORNING 06/15/2018 09/26/2018 Inactive orphenadrine citrate ER 100 mg tablet,extended release RxNor m: 218461 TAKE ONE TABLET BY MOUTH TWICE A DAY FOR MUSCLE SPASM 06/15/2018 08/15/2018 Renu ctive Duragesic 100 mcg/hr transdermal patch RxNorm: 587444 2 Application TD Q48H for pain 05/30/2018 06/28/2018 Inactive ProAir HFA 90 mcg/actuation aerosol inhaler RxNorm: 804068 INHALE TWO PUFFS BY MOUTH EVERY 4 HOURS FOR WHEEZING OR SHORTNESS OF BREATH 05/19/201803/2018 Inactive Chantix Continuing Month Box 1 mg tablet RxNorm: 787199 TAKE ONE TABLET BY MOUTH TWICE A DAY 05/19/2018 08/15/2018 Inactive oxycodone 10 mg tablet RxNorm: 3189820 1-2 Tablet(s) PO QID as n eeded for pain 05/19/2018 07/07/2018 Inactive gabapentin 300 mg capsule RxNorm: 420736 TAKE ONE CAPSULE BY MO UTH TWICE A DAY 05/18/2018 07/16/2018 Inactive ProAir HFA 90 mcg/actuation aerosol inhaler RxNorm: 875353 INHALE TWO PUFFS BY MOUTH EVERY 4 HOURS FOR WHEEZING OR SHORTNESS OF BREATH 05/04/201804/23 Inactive Augmentin 500 mg-125 mg tablet RxNorm: 880463 1 Tablet(s) PO BID 05/03/2018 Inactive oxycodone 10 mg tablet RxNorm: 2653743 1-2 Tablet(s) PO QID as n eeded for pain 04/21/2018 05/18/2018 Inactive Synthroid 88 mcg tablet RxNorm: 598349 1 Tablet(s) PO QD 04/15/2018 0 08/08/2018 Inactive Symbicort 160 mcg-4.5 mcg/actuation HFA aerosol inhaler RxNo rm: 9188328 2 Puff(s) INH BID 04/15/2018 04/10/2019 Inactive Premarin 0.45 mg tablet RxNorm: 917780 1 Tablet(s) PO QD 04/15/2018 0 08/03/2018 Inactive ProAir HFA 90 mcg/actuation aerosol inhaler RxNorm: 474795 2 Puff(s) INH Q4H prn for wheezing or shortness of breath 04/15/2018 05/03/2018 Inactive metformin ER 500 mg tablet,extended release 24 hr RxNorm: 86 0975 1 Tablet(s) PO QD 04/11/2018 07/07/2018 Inactive omeprazole 40 mg capsule,delayed release RxNorm: 225577 TAKE ONE CAPSULE BY MOUTH DAILY 04/10/2018 06/08/2018 Inactive Synthroid 88 mcg tablet RxNorm: 404907 1 Tablet(s) PO QD 04/04/2018 0 04/14/2018 Inactive Synthroid 88 mcg tablet RxNorm: 275757 1 Tablet(s) PO QD 04/04/2018 0 04/03/2018 Inactive orphenadrine citrate ER 100 mg tablet,extended release RxNor m: 011089 1 Tablet(s) PO BID for muscle spasm 04/04/2018 05/03/2018 Inactive metformin ER 500 mg tablet,extended release 24 hr RxNorm: 86 0975 1 Tablet(s) PO QD NEEDS UPDATED LABS 03/31/2018 04/11/2018 Inactive doxycycline hyclate 100 mg capsule RxNorm: 3033180 1 Capsule(s) PO BID 03/31/2018 04/09/2018 Inactive prednisone 20 mg tablet RxNorm: 701417 3 Tablet(s) PO T ID for 3 days then 1 po BID for 3 days then one daily for 3 days 03/31/2018 07/06/2018 Inactiv e Chantix Continuing Month Box 1 mg tablet RxNorm: 377672 TAKE ONE TABLET BY MOUTH TWICE A DAY 03/25/2018 03/30/2018 Inactive oxycodone 10 mg tablet RxNorm: 6208556 1-2 Tablet(s) PO QID as n eeded for pain 03/21/2018 04/20/2018 Inactive Daliresp 500 mcg tablet RxNorm: 6804882 1 Tablet(s) PO QD 03/15/2018 08/22/2018 Inactive metformin ER 500 mg tablet,extended release 24 hr RxNorm: 86 0975 1 Tablet(s) PO QD NEEDS UPDATED LABS 03/14/2018 03/31/2018 Inactive nystatin 100,000 unit/mL oral suspension RxNorm: 977154 5 Chio liter(s) PO QID 03/02/2018 03/15/2018 Inactive nystatin 100,000 unit/mL oral suspension RxNorm: 786795 5 Chio liter(s) PO QID 03/02/2018 03/01/2018 Inactive oxycodone 10 mg tablet RxNorm: 6320425 1-2 Tablet(s) PO QID as n eeded for pain 02/16/2018 03/20/2018 Inactive fluoxetine 20 mg capsule RxNorm: 674657 1 Capsule(s) PO QD 02/15/20 18 08/02/2018 Inactive metformin ER 500 mg tablet,extended release 24 hr RxNorm: 86 0975 1 Tablet(s) PO QD Needs updated labs 02/14/2018 03/14/2018 Inactive cefdinir 300 mg capsule RxNorm: 194901 1 Capsule(s) PO BID 01/27/20 18 02/04/2018 Inactive orphenadrine citrate ER 100 mg tablet,extended release RxNor m: 582707 1 Tablet(s) PO BID for muscle spasm 01/26/2018 04/04/2018 Inactive gabapentin 300 mg capsule RxNorm: 072017 1 Capsule(s) PO BID 201704/17/2018 Inactive oxycodone 10 mg tablet RxNorm: 6273259 1-2 Tablet(s) PO QID as n eeded for pain 01/17/2018 02/15/2018 Inactive Duragesic 100 mcg/hr transdermal patch RxNorm: 982627 2 Application TD Q48H for pain 01/17/2018 02/15/2018 Inactive gabapentin 300 mg capsule RxNorm: 563829 TAKE ONE CAPSULE BY MO UTH TWICE A DAY 12/20/2017 01/18/2018 Inactive fluoxetine 40 mg capsule RxNorm: 186591 TAKE ONE CAPSULE BY BENOIT TH EVERY MORNING 12/15/2017 03/14/2018 Inactive [employer] GolfTouch Ultra Test strips RxNorm: TEST DAILY 11/04/2017 02/01/2018 Inactive gabapentin 300 mg capsule RxNorm: 053607 1 Capsule(s) P O TID replaces BID dosing 10/26/2017 02/22/2018 Inactive oxycodone 10 mg tablet RxNorm: 3098989 1-2 Tablet(s) PO QID as n eeded for pain 10/18/2017 01/16/2018 Inactive Duragesic 100 mcg/hr transdermal patch RxNorm: 444084 2 Application TD Q48H for pain 10/18/2017 11/16/2017 Inactive gabapentin 300 mg capsule RxNorm: 530637 1 Capsule(s) PO BID 201610/25/2017 Inactive Abilify 5 mg tablet RxNorm: 910239 1 Tablet(s) PO QAM 09/23/201702/2017 Inactive gabapentin 300 mg capsule RxNorm: 008565 1 Capsule(s) PO BID 201610/17/2017 Inactive oxycodone 10 mg tablet RxNorm: 2138639 1-2 Tablet(s) PO QID as n eeded for pain 09/15/2017 10/17/2017 Inactive Duragesic 100 mcg/hr transdermal patch RxNorm: 780509 2 Application TD Q48H for pain 09/15/2017 10/14/2017 Inactive Duragesic 100 mcg/hr transdermal patch RxNorm: 775030 2 Application TD Q48H for pain 09/15/2017 10/24/2019 Inactive oxycodone 10 mg tablet RxNorm: 2508454 1-2 Tablet(s) PO QID as n eeded for pain 09/15/2017 08/15/2018 Inactive Daliresp 500 mcg tablet RxNorm: 9037867 1 Tablet(s) PO QD 09/06/2017 03/15/2018 Inactive Ventolin HFA 90 mcg/actuation aerosol inhaler RxNorm: 053791 2 Puff(s) INH Q4H as needed 09/02/2017 05/19/2018 Inactive oxycodone 10 mg tablet RxNorm: 9679135 1-2 Tablet(s) PO QID as n eeded for pain 08/17/2017 09/14/2017 Inactive Duragesic 100 mcg/hr transdermal patch RxNorm: 909841 2 Application TD Q48H for pain 08/17/2017 09/14/2017 Inactive fluoxetine 40 mg capsule RxNorm: 404845 Capsule(s) TAKE ONE CAPSULE BY MOUTH EVERY MORNING 08/17/2017 12/14/2017 Inactive Pulmicort 1 mg/2 mL suspension for nebulization RxNorm: 6168 19 1 Unit Dose INH BID Dx: COPD (J44.9) 08/16/2017 08/22/2018 Inactive gabapentin 300 mg capsule RxNorm: 215812 1 Capsule(s) PO QHS 201610/18/2017 Inactive fluoxetine 20 mg capsule RxNorm: 451547 1 Capsule(s) PO QD 08/12/2002/14/2018 Inactive Abilify 2 mg tablet RxNorm: 484717 1 Tablet(s) PO QD TA KE ONE TABLET BY MOUTH DAILY 08/12/2017 10/25/2017 Inactive metformin ER 500 mg tablet,extended release 24 hr RxNorm: 86 0975 1 Tablet(s) PO QD 08/10/2017 02/14/2018 Inactive Synthroid 112 mcg tablet RxNorm: 325999 1 Tablet(s) PO QD 08/10/2017 04/15/2018 Inactive oxycodone 10 mg tablet RxNorm: 3322272 1-2 Tablet(s) PO QID as n eeded for pain 07/19/2017 08/16/2017 Inactive Duragesic 100 mcg/hr transdermal patch RxNorm: 288817 2 Application TD Q48H for pain 07/19/2017 08/16/2017 Inactive Ventolin HFA 90 mcg/actuation aerosol inhaler RxNorm: 731060 2 Puff(s) INH Q4H as needed 07/12/2017 09/02/2017 Inactive Abilify 2 mg tablet RxNorm: 302353 1 Tablet(s) PO QD TA KE ONE TABLET BY MOUTH DAILY 07/06/2017 08/11/2017 Inactive gabapentin 800 mg tablet RxNorm: 982420 1 Tablet(s) PO TID 06/22/2007/05/2017 Inactive Chantix Starting Month Box 0.5 mg (11)-1 mg (42) table ts in dose pack RxNorm: 032727 TAKE BY MOUTH INSTRUCTED - PER PACKAGE INSTRUCTIONS 06/0707/04/2017 Inactive Ventolin HFA 90 mcg/actuation aerosol inhaler RxNorm: 339590 2 Puff(s) INH Q4H as needed 05/26/2017 07/12/2017 Inactive Duragesic 100 mcg/hr transdermal patch RxNorm: 565972 2 Application TD Q48H for pain 05/19/2017 06/17/2017 Inactive oxycodone 10 mg tablet RxNorm: 1640804 1-2 Tablet(s) PO QID as n eeded for pain 05/19/2017 07/18/2017 Inactive Abilify 2 mg tablet RxNorm: 490415 TAKE ONE TABLET BY MOUTH DAILY 0 05/10/2017 07/05/2017 Inactive Synthroid 112 mcg tablet RxNorm: 439613 1 Tablet(s) PO QD 05/06/2017 08/10/2017 Inactive metformin ER 500 mg tablet,extended release 24 hr RxNorm: 86 0975 1 Tablet(s) PO QD 05/06/2017 08/10/2017 Inactive Topamax 100 mg tablet RxNorm: 335201 1 Tablet(s) PO QHS 05/06/2017 Inactive Premarin 0.45 mg tablet RxNorm: 775071 1 Tablet(s) PO QD 05/06/2017 0 04/15/2018 Inactive orphenadrine citrate ER 100 mg tablet,extended release RxNor m: 024914 1 Tablet(s) PO TID for muscle spasm--replaces methocarbamol 04/29/2017 Inactive oxycodone 10 mg tablet RxNorm: 1451364 1-2 Tablet(s) PO QID as n eeded for pain 04/21/2017 05/18/2017 Inactive Duragesic 100 mcg/hr transdermal patch RxNorm: 341473 2 Application TD Q48H for pain 04/21/2017 05/18/2017 Inactive fluoxetine 40 mg capsule RxNorm: 423278 Capsule(s) TAKE ONE CAPSULE BY MOUTH EVERY MORNING 04/20/2017 08/17/2017 Inactive Ventolin HFA 90 mcg/actuation aerosol inhaler RxNorm: 789065 2 Puff(s) INH Q4H as needed 04/05/2017 05/26/2017 Inactive Symbicort 160 mcg-4.5 mcg/actuation HFA aerosol inhaler RxNo rm: 4152308 2 Puff(s) INH BID 03/30/2017 04/15/2018 Inactive Spiriva with HandiHaler 18 mcg and inhalation capsules RxNor m: 864642 1 Capsule(s) INH QD USING HANDIHALER 03/30/2017 02/12/2019 Inactive Duragesic 100 mcg/hr transdermal patch RxNorm: 641012 2 Application TD Q48H for pain 03/18/2017 04/16/2017 Inactive oxycodone 10 mg tablet RxNorm: 1506445 1-2 Tablet(s) PO QID as n eeded for pain 03/18/2017 04/20/2017 Inactive metformin ER 500 mg tablet,extended release 24 hr RxNorm: 86 0975 Tablet(s) TAKE ONE TABLET BY MOUTH DAILY 03/01/2017 05/06/2017 Inactive Premarin 0.45 mg tablet RxNorm: 432904 Tablet(s) TAKE ONE TABLE T BY MOUTH DAILY 03/01/2017 05/06/2017 Inactive Synthroid 112 mcg tablet RxNorm: 601604 Tablet(s) TAKE ONE TABLET BY MOUTH DAILY 03/01/2017 05/06/2017 Inactive Daliresp 500 mcg tablet RxNorm: 9025192 1 Tablet(s) PO QD 03/01/2017 09/06/2017 Inactive 16.2 mg-0.1037 mg-0.0194 mg tablet RxNorm: 7563721 Tablet(s) PO PRN for gas and cramping 02/23/2017 04/28/2017 Inactive TAKE TWO TABLET S BY MOUTH THREE TIMES A DAY NEEDED FOR GAS AND CRAMPING gabapentin 800 mg tablet RxNorm: 306615 1 Tablet(s) PO TID repl aces 600mg 02/23/2017 04/28/2017 Inactive Duragesic 100 mcg/hr transdermal patch RxNorm: 180900 2 Application TD Q48H for pain 02/17/2017 03/17/2017 Inactive fluoxetine 20 mg capsule RxNorm: 102143 1 Capsule(s) PO QD 02/18/20 17 08/12/2017 Inactive oxycodone 20 mg tablet RxNorm: 3863111 1 Tablet(s) PO QID as nee ded for pain 02/17/2017 03/17/2017 Inactive Ventolin HFA 90 mcg/actuation aerosol inhaler RxNorm: 101257 INHALE TWO PUFFS BY MOUTH EVERY 4 HOURS NEEDED 02/15/2017 04/05/2017 Inactive Silvadene 1 % topical cream RxNorm: 786299 1 Application TOP BI D to burn area 02/01/2017 09/22/2017 Inactive Topamax 100 mg tablet RxNorm: 294209 TAKE ONE TABLET BY MOUTH EVERY NIGHT AT BEDTIME 01/29/2017 05/06/2017 Inactive Chantix Starting Month Box 0.5 mg (11)-1 mg (42) table ts in dose pack RxNorm: 835496 Tablet(s) PO as directed 01/29/2017 06/01/2017 Inactive Abilify 2 mg tablet RxNorm: 147649 TAKE ONE TABLET BY MOUTH DAILY 0 01/26/2017 04/25/2017 Inactive Chantix Starting Month Box 0.5 mg (11)-1 mg (42) table ts in dose pack RxNorm: 196750 Tablet(s) PO as directed 01/20/2017 01/28/2017 Inactive gabapentin 600 mg tablet RxNorm: 499810 1 Tablet(s) PO TID 01/21/20 17 02/22/2017 Inactive Chantix Continuing Month Box 1 mg tablet RxNorm: 943949 1 Table t(s) PO BID 12/31/2016 06/01/2017 Inactive Spiriva with HandiHaler 18 mcg and inhalation capsules RxNor m: 917755 INHALE THE ENTIRE CONTENTS OF 1 CAPSULE ONCE A DAY USING HANDIHALER 12/31/201607/2017 Inactive Synthroid 112 mcg tablet RxNorm: 268991 TAKE ONE TABLET BY MOUT H DAILY 12/30/2016 03/01/2017 Inactive metformin ER 500 mg tablet,extended release 24 hr RxNorm: 86 0975 TAKE ONE TABLET BY MOUTH DAILY 12/30/2016 03/01/2017 Inactive Premarin 0.45 mg tablet RxNorm: 404766 TAKE ONE TABLET BY MOUTH DAILY 12/30/2016 03/01/2017 Inactive omeprazole 40 mg capsule,delayed release RxNorm: 851047 TAKE ONE CAPSULE BY MOUTH DAILY 12/30/2016 01/25/2018 Inactive Ventolin HFA 90 mcg/actuation aerosol inhaler RxNorm: 787934 INHALE TWO PUFFS BY MOUTH EVERY 4 HOURS NEEDED 12/28/2016 02/13/2017 Inactive fluoxetine 40 mg capsule RxNorm: 992575 TAKE ONE CAPSULE BY BENOIT TH EVERY MORNING 12/15/2016 04/20/2017 Inactive Chantix Continuing Month Box 1 mg tablet RxNorm: 417107 TAKE ONE TABLET BY MOUTH TWICE A DAY 12/04/2016 12/31/2016 Inactive doxycycline hyclate 100 mg capsule RxNorm: 6212551 1 Capsule(s) PO BID 12/01/2016 12/07/2016 Inactive Levaquin 750 mg tablet RxNorm: 260305 1 Tablet(s) PO QD 12/01/2016 Inactive Abilify 2 mg tablet RxNorm: 332739 TAKE ONE TABLET BY MOUTH DAILY 0 11/25/2016 11/30/2016 Inactive Ventolin HFA 90 mcg/actuation aerosol inhaler RxNorm: 571638 INHALE TWO PUFFS BY MOUTH EVERY 4 HOURS NEEDED 11/02/2016 12/19/2016 Inactive Chantix Continuing Month Box 1 mg tablet RxNorm: 033743 Tablet(s) PO as directed 10/30/2016 12/03/2016 Inactive Symbicort 160 mcg-4.5 mcg/actuation HFA aerosol inhaler RxNo rm: 0836902 INHALE TWO PUFFS TWO TIMES A DAY 10/30/2016 03/30/2017 Inactive Abilify 2 mg tablet RxNorm: 356785 1 Tablet(s) PO QD 10/27/201611/24 Inactive amoxicillin 500 mg capsule RxNorm: 838284 1 Capsule(s) PO TID 10/1410/23/2016 Inactive amoxicillin 500 mg capsule RxNorm: 243764 1 Capsule(s) PO TID 10/1410/13/2016 Inactive Synthroid 112 mcg tablet RxNorm: 502127 TAKE ONE TABLET BY MOUT H DAILY 09/28/2016 12/29/2016 Inactive Topamax 100 mg tablet RxNorm: 214581 TAKE ONE TABLET BY MOUTH EVERY NIGHT AT BEDTIME 09/28/2016 01/28/2017 Inactive Premarin 0.45 mg tablet RxNorm: 994042 TAKE ONE TABLET BY MOUTH DAILY 09/28/2016 12/29/2016 Inactive metformin ER 500 mg tablet,extended release 24 hr RxNorm: 86 0975 TAKE ONE TABLET BY MOUTH DAILY 09/28/2016 12/29/2016 Inactive Ventolin HFA 90 mcg/actuation aerosol inhaler RxNorm: 847982 INHALE TWO PUFFS BY MOUTH EVERY 4 HOURS NEEDED 09/22/2016 10/23/2016 Inactive Pulmicort 1 mg/2 mL suspension for nebulization RxNorm: 6168 19 1 Unit Dose INH BID Dx: COPD (J44.9) 09/10/2016 08/16/2017 Inactive Pulmicort 1 mg/2 mL suspension for nebulization RxNorm: 6168 19 1 Unit Dose INH BID 09/10/2016 09/09/2016 Inactive Brovana 15 mcg/2 mL solution for nebulization RxNorm: 859244 1 Unit Dose INH BID Dx: COPD (J44.9) 09/10/2016 01/25/2018 Inactive Brovana 15 mcg/2 mL solution for nebulization RxNorm: 425483 1 Unit Dose INH BID 09/10/2016 09/09/2016 Inactive ipratropium-albuterol 0.5 mg-3 mg(2.5 mg base)/3 mL ne bulization soln RxNorm: 0203419 1 Unit Dose INH Q4H as needed Dx: COPD (J44.9) 09/10/2016 0 02/12/2019 Inactive orphenadrine citrate ER 100 mg tablet,extended release RxNor m: 396104 1 Tablet(s) PO BID for muscle spasm--replaces methocarbamol 09/09/2016 Inactive Chantix Continuing Month Box 1 mg tablet RxNorm: 456610 Tablet(s) PO as directed 09/09/2016 10/30/2016 Inactive orphenadrine citrate ER 100 mg tablet,extended release RxNor m: 018730 1 Tablet(s) PO BID for muscle spasm 09/09/2016 09/08/2016 Inactive Spiriva with HandiHaler 18 mcg and inhalation capsules RxNor m: 426392 INHALE THE ENTIRE CONTENTS OF 1 CAPSULE ONCE A DAY USING HANDIHALER 09/01/201605/2017 Inactive Daliresp 500 mcg tablet RxNorm: 8090458 1 Tablet(s) PO QD 08/27/2016 03/01/2017 Inactive prednisone 20 mg tablet RxNorm: 424660 3 Tablet(s) PO T ID for 3 days then 1 po BID for 3 days then one daily for 3 days 08/26/2016 04/28/2017 Inactiv e Wellbutrin XL 300 mg 24 hr tablet, extended release RxNorm: 393181 TAKE ONE TABLET BY MOUTH EVERY MORNING 07/29/2016 10/26/2016 Inactive gabapentin 600 mg tablet RxNorm: 029830 1 Tablet(s) PO BID 06/26/20 16 12/22/2016 Inactive fluoxetine 40 mg capsule RxNorm: 247475 TAKE ONE CAPSULE BY BENOIT TH EVERY MORNING 06/24/2016 11/20/2016 Inactive Duragesic 100 mcg/hr transdermal patch RxNorm: 212640 2 Application TD Q48H for pain 06/05/2016 07/04/2016 Inactive oxycodone 10 mg tablet RxNorm: 3193657 1-2 Tablet(s) PO QID as n eeded for pain 06/05/2016 03/17/2017 Inactive Belladonna-Phenobarbital 48 mg tablet,extended release RxNor m: 2 Tablet(s) PO TID 06/05/2016 01/19/2017 Inactive Premarin 0.45 mg tablet RxNorm: 523141 TAKE ONE TABLET BY MOUTH DAILY 05/27/2016 09/23/2016 Inactive Topamax 100 mg tablet RxNorm: 244248 TAKE ONE TABLET BY MOUTH EVERY NIGHT AT BEDTIME 05/27/2016 09/27/2016 Inactive Synthroid 112 mcg tablet RxNorm: 139810 TAKE ONE TABLET BY MOUT H DAILY 05/27/2016 09/23/2016 Inactive metformin ER 500 mg tablet,extended release 24 hr RxNorm: 86 0975 TAKE ONE TABLET BY MOUTH DAILY 05/27/2016 09/23/2016 Inactive Symbicort 160 mcg-4.5 mcg/actuation HFA aerosol inhaler RxNo rm: 5722542 INHALE TWO PUFFS TWO TIMES A DAY 05/27/2016 10/23/2016 Inactive Ventolin HFA 90 mcg/actuation aerosol inhaler RxNorm: 174651 INHALE TWO PUFFS BY MOUTH EVERY 4 HOURS NEEDED 05/21/2016 07/07/2016 Inactive omeprazole 40 mg capsule,delayed release RxNorm: 773208 1 Capsu le(s) PO QD 05/06/2016 08/03/2016 Inactive metformin ER 500 mg tablet,extended release 24 hr RxNorm: 86 0975 TAKE ONE TABLET BY MOUTH DAILY 04/23/2016 05/22/2016 Inactive methocarbamol 750 mg tablet RxNorm: 045644 2 Tablet(s) PO TID as needed for muscle spasm 04/23/2016 09/08/2016 Inactive Synthroid 112 mcg tablet RxNorm: 031240 TAKE ONE TABLET BY MOUT H DAILY 04/23/2016 05/22/2016 Inactive Spiriva with HandiHaler 18 mcg and inhalation capsules RxNor m: 819620 INHALE THE ENTIRE CONTENTS OF 1 CAPSULE ONCE A DAY USING HANDIHALER 04/09/201608/2016 Inactive Diflucan 100 mg tablet RxNorm: 482624 1 Tablet(s) PO QD 04/08/2016 Inactive doxycycline hyclate 100 mg capsule RxNorm: 6275099 1 Capsule(s) PO BID 04/08/2016 04/17/2016 Inactive doxycycline hyclate 100 mg capsule RxNorm: 7466718 1 Capsule(s) PO BID 04/08/2016 04/07/2016 Inactive Diflucan 100 mg tablet RxNorm: 417399 1 Tablet(s) PO QD 04/08/2016 Inactive ondansetron HCl 4 mg tablet RxNorm: 532875 1 Tablet(s) PO Q4H as needed for nausea and vomiting 04/08/2016 09/22/2017 Inactive gabapentin 600 mg tablet RxNorm: 049097 TAKE ONE TABLET BY MOUT H TWICE A DAY 03/24/2016 06/25/2016 Inactive Synthroid 112 mcg tablet RxNorm: 396027 TAKE ONE TABLET BY MOUT H DAILY 02/25/2016 04/22/2016 Inactive Levaquin 500 mg tablet RxNorm: 935246 1 Tablet(s) PO QD 01/23/2016 Inactive prednisone 20 mg tablet RxNorm: 302033 1 Tablet(s) PO T ID for 3 days then 1 po BID for 3 days then one daily for 3 days 01/23/2016 08/25/2016 Inactiv e [employer] Ultra Test strips RxNorm: TEST BLOOD SUGAR ONCE DAILY 250.00 01/09/2016 11/04/2017 Inactive methocarbamol 750 mg tablet RxNorm: 987419 2 Tablet(s) PO TID as needed for muscle spasm 01/09/2016 04/23/2016 Inactive lactulose 10 gram/15 mL oral solution RxNorm: 704649 [address](s) PO QD 01/09/2016 09/22/2017 Inactive TAKE 1 TABLESPOON BY MOUTH ONCE DAILY metformin ER 500 mg tablet,extended release 24 hr RxNorm: 86 0975 1 Tablet(s) PO QD 12/26/2015 04/22/2016 Inactive fluoxetine 20 mg capsule RxNorm: 690745 1 Capsule(s) PO QD 12/23/19 16 06/19/2016 Inactive Premarin 0.45 mg tablet RxNorm: 769495 TAKE ONE TABLET BY MOUTH DAILY 12/23/2015 05/20/2016 Inactive fluoxetine 40 mg capsule RxNorm: 998699 1 Capsule(s) PO QD 12/23/19 16 06/19/2016 Inactive TAKE ONE CAPSULE BY MOUTH EV JANKI MORNING azithromycin 500 mg tablet RxNorm: 738109 1 Tablet(s) PO QD 016 12/19/2015 Inactive Zofran 4 mg tablet RxNorm: 340820 1 Tablet(s) PO Q4H prn nausea /vomiting 12/13/2015 03/30/2018 Inactive azithromycin 500 mg tablet RxNorm: 588975 1 Tablet(s) PO QD 016 12/12/2015 Inactive Duragesic 100 mcg/hr transdermal patch RxNorm: 958858 2 Application TD Q48H for pain 12/09/2015 01/07/2016 Inactive oxycodone 10 mg tablet RxNorm: 3972124 1-2 Tablet(s) PO QID as n eeded for pain 12/09/2015 06/04/2016 Inactive Bactroban 2 % topical cream RxNorm: 940232 Application TOP BID 11/2208/25/2016 Inactive doxycycline hyclate 100 mg capsule RxNorm: 2396875 1 Capsule(s) PO BID 12/03/2015 12/12/2015 Inactive Topamax 100 mg tablet RxNorm: 590854 TAKE ONE TABLET BY MOUTH EVERY NIGHT AT BEDTIME 11/25/2015 05/22/2016 Inactive Symbicort 160 mcg-4.5 mcg/actuation HFA aerosol inhaler RxNo rm: 2804268 INHALE TWO PUFFS TWO TIMES A DAY 11/25/2015 05/22/2016 Inactive Synthroid 112 mcg tablet RxNorm: 991259 Tablet(s) TAKE ONE TABLET BY MOUTH DAILY 11/25/2015 02/22/2016 Inactive omeprazole 40 mg capsule,delayed release RxNorm: 454461 1 Capsu le(s) PO QD 11/12/2015 05/05/2016 Inactive oxycodone 10 mg tablet RxNorm: 6362567 1-2 Tablet(s) PO QID as n eeded for pain 11/05/2015 12/08/2015 Inactive Duragesic 100 mcg/hr transdermal patch RxNorm: 207846 2 Application TD Q48H for pain 11/05/2015 12/04/2015 Inactive omeprazole 40 mg capsule,delayed release RxNorm: 142987 1 Capsu le(s) PO QD 10/07/2015 11/11/2015 Inactive Januvia 100 mg tablet RxNorm: 185811 TAKE ONE TABLET BY MOUTH DAILY 09/11/2015 12/25/2015 Inactive Zithromax 500 mg tablet RxNorm: 862414 1 Tablet(s) PO QD 09/10/2015 1 Inactive prednisone 20 mg tablet RxNorm: 047645 1 Tablet(s) PO T ID for 3 days then 1 po BID for 3 days then one daily for 3 days 09/10/2015 08/25/2016 Inactiv e Wellbutrin XL 300 mg 24 hr tablet, extended release RxNorm: 886345 1 Tablet(s) PO QAM 09/10/2015 12/02/2015 Inactive Topamax 100 mg tablet RxNorm: 108986 TAKE ONE TABLET BY MOUTH EVERY NIGHT AT BEDTIME 09/02/2015 11/24/2015 Inactive Synthroid 112 mcg tablet RxNorm: 511135 TAKE ONE TABLET BY MOUT H DAILY 09/02/2015 11/25/2015 Inactive methocarbamol 750 mg tablet RxNorm: 825599 2 Tablet(s) PO TID as needed for muscle spasm 08/15/2015 01/09/2016 Inactive Wellbutrin XL 150 mg 24 hr tablet, extended release RxNorm: 250537 TAKE ONE TABLET BY MOUTH EVERY MORNING 08/13/2015 08/13/2015 Inactive gabapentin 600 mg tablet RxNorm: 199219 1 Tablet(s) PO BID 08/13/20 15 02/08/2016 Inactive Wellbutrin XL 300 mg 24 hr tablet, extended release RxNorm: 836357 1 Tablet(s) PO QAM 08/06/2015 09/09/2015 Inactive Wellbutrin XL 150 mg 24 hr tablet, extended release RxNorm: 020502 1 Tablet(s) PO QAM 07/18/2015 08/05/2015 Inactive prednisone 20 mg tablet RxNorm: 187187 1 Tablet(s) PO BID 07/18/2015 07/22/2015 Inactive doxycycline hyclate 100 mg tablet,delayed release RxNorm: 43 4018 1 Tablet(s) PO BID 07/18/2015 07/27/2015 Inactive pravastatin 40 mg tablet RxNorm: 371431 1 Tablet(s) PO QD NEEDS FASTING LAB 07/15/2015 07/14/2015 Inactive pravastatin 40 mg tablet RxNorm: 990857 1 Tablet(s) PO QD NEEDS FASTING LAB 07/15/2015 01/25/2018 Inactive Ventolin HFA 90 mcg/actuation aerosol inhaler RxNorm: 090754 2 Puff(s) INH Q4H 07/08/2015 07/07/2015 Inactive prn Premarin 0.45 mg tablet RxNorm: 205320 1 Tablet(s) PO QD 07/01/2015 0 12/22/2015 Inactive pravastatin 40 mg tablet RxNorm: 086869 1 Tablet(s) PO QD NEEDS FASTING LAB 06/14/2015 07/15/2015 Inactive Ventolin HFA 90 mcg/actuation aerosol inhaler RxNorm: 3718012 2 Puff(s) INH Q4H 06/06/2015 07/08/2015 Inactive prn albuterol sulfate 2.5 mg/3 mL (0.083 %) solution for n ebulization RxNorm: 998135 1 Unit Dose INH QID 05/30/2015 No Stop Date Active Duragesic 100 mcg/hr transdermal patch RxNorm: 655239 2 Application TD Q48H for pain 04/29/2015 05/28/2015 Inactive gabapentin 600 mg tablet RxNorm: 556382 1 Tablet(s) PO BID 04/11/20 15 08/13/2015 Inactive Onglyza 5 mg tablet RxNorm: 979138 1 Tablet(s) PO QD for blood suga r 04/10/2015 04/15/2015 Inactive [Brand Copay Card: RxBIN:[id number] PCN:CRISTIANA RxGRP:[id number] ID#:[id number]] methocarbamol 750 mg tablet RxNorm: 695909 2 Tablet(s) PO TID as needed for muscle spasm 03/28/2015 08/15/2015 Inactive pravastatin 40 mg tablet RxNorm: 196524 1 Tablet(s) PO QD 03/19/2015 03/18/2015 Inactive pravastatin 40 mg tablet RxNorm: 780765 1 Tablet(s) PO QD 03/19/2015 06/14/2015 Inactive lactulose 10 gram/15 mL oral solution RxNorm: 748193 [address]s) PO QD 03/07/2015 01/09/2016 Inactive TAKE 1 TABLESPOON BY MOUTH ONCE DAILY oxycodone 20 mg tablet RxNorm: 0887166 1 Tablet(s) PO QID as nee ded for pain 03/05/2015 07/08/2015 Inactive Topamax 100 mg tablet RxNorm: 501399 1 Tablet(s) PO QHS TAKE ONE TABLET BY MOUTH AT BEDTIME 02/25/2015 02/12/2019 Inactive metformin ER 500 mg tablet,extended release 24 hr RxNorm: 86 0975 1 Tablet(s) PO QD 02/11/2015 03/04/2015 Inactive take one tablet by mouth every day Daliresp 500 mcg tablet RxNorm: 0152458 1 Tablet(s) PO QD 02/11/2015 08/09/2015 Inactive Endocet 10 mg-325 mg tablet RxNorm: 6292733 1 Tablet(s) PO Q4H as needed for pain 01/23/2015 01/23/2015 Inactive gabapentin 600 mg tablet RxNorm: 541933 1 Tablet(s) PO BID 01/23/20 15 04/11/2015 Inactive methocarbamol 750 mg tablet RxNorm: 524940 2 Tablet(s) PO TID as needed for muscle spasm 01/15/2015 02/13/2015 Inactive fluoxetine 40 mg capsule RxNorm: 613645 1 Capsule(s) PO QD 01/14/20 15 12/23/2015 Inactive TAKE ONE CAPSULE BY MOUTH EV JANKI MORNING fluoxetine 20 mg capsule RxNorm: 666293 1 Capsule(s) PO QD 01/14/20 15 12/23/2015 Inactive Premarin 0.45 mg tablet RxNorm: 039605 1 Tablet(s) PO QD 01/02/2015 0 07/01/2015 Inactive Endocet 10 mg-325 mg tablet RxNorm: 5452201 1-2 Tablet(s) PO Q4H 02/12/2019 Inactive PRN PAIN Duragesic 100 mcg/hr transdermal patch RxNorm: 911402 2 Application TD Q48H for pain 12/25/2014 01/23/2015 Inactive Topamax 100 mg tablet RxNorm: 770252 1 Tablet(s) PO QHS TAKE ONE TABLET BY MOUTH AT BEDTIME 12/25/2014 02/24/2015 Inactive Tudorza Pressair 400 mcg/actuation breath activated RxNorm: 6404848 1 BID INHALE ONE PUFF INTO LUNGS TWO TIMES A DAY 12/17/2014 05/15/2015 Inactive Endocet 10 mg-325 mg tablet RxNorm: 2199422 1-2 Tablet(s) PO Q4H 12/19/2014 Inactive PRN PAIN Duragesic 100 mcg/hr transdermal patch RxNorm: 570646 2 Application TD Q48H for pain 11/20/2014 12/24/2014 Inactive [employer] Ultra Test strips RxNorm: TEST BLOOD SUGAR ONCE DAILY 250.00 11/16/2014 01/08/2016 Inactive omeprazole 40 mg capsule,delayed release RxNorm: 765866 1 Capsu le(s) PO QD 11/13/2014 11/12/2015 Inactive metformin ER 500 mg tablet,extended release 24 hr RxNorm: 86 0975 1 Tablet(s) PO QD 11/12/2014 02/11/2015 Inactive take one tablet by mouth every day Symbicort 160 mcg-4.5 mcg/actuation HFA aerosol inhaler RxNo rm: 7610211 2 Puff(s) INH BID 11/12/2014 03/11/2015 Inactive INHALE 2 PUFFS O RALLY TWO TIMES A DAY gabapentin 800 mg tablet RxNorm: 493306 1 Tablet(s) PO QD TAKE ONE TABLET BY MOUTH ONCE A DAY 10/22/2014 01/01/2015 Inactive Endocet 10 mg-325 mg tablet RxNorm: 2141913 1-2 Tablet(s) PO Q4H 11/15/2014 Inactive PRN PAIN Duragesic 100 mcg/hr transdermal patch RxNorm: 702680 2 Application TD Q48H for pain 10/17/2014 11/19/2014 Inactive gabapentin 800 mg tablet RxNorm: 456899 1 Tablet(s) PO QD TAKE ONE TABLET BY MOUTH ONCE A DAY 10/04/2014 10/21/2014 Inactive Premarin 0.9 mg tablet RxNorm: 146847 1 Tablet(s) PO QD TAKE ONE TABLET BY MOUTH ONCE A DAY 10/04/2014 01/01/2015 Inactive Spiriva with HandiHaler 18 mcg & inhalation capsules RxNorm: 493249 1 Capsule(s) INH QD 10/03/2014 04/30/2015 Inactive Levaquin 500 mg tablet RxNorm: 714970 1 Tablet(s) PO QD 10/03/2014 Inactive prednisone 20 mg tablet RxNorm: 102809 1 Tablet(s) PO QD 10/03/2014 1 12/09/2013 Inactive Duragesic 100 mcg/hr transdermal patch RxNorm: 836857 2 Application TD Q48H for pain 09/18/2014 10/16/2014 Inactive Endocet 10 mg-325 mg tablet RxNorm: 7596825 1-2 Tablet(s) PO Q4H 10/16/2014 Inactive PRN PAIN Synthroid 112 mcg tablet RxNorm: 487707 1 Tablet(s) QD 09/10/2014 Inactive Synthroid 112 mcg tablet RxNorm: 356216 TAKE ONE TABLET BY MOUTH ONE TIME A DAY. NEEDS LABS 09/10/2014 02/06/2015 Inactive omeprazole 40 mg capsule,delayed release RxNorm: 855600 1 Capsu le(s) PO QD 09/03/2014 11/13/2014 Inactive omeprazole 40 mg capsule,delayed release RxNorm: 704713 1 Capsu le(s) PO QD 09/03/2014 09/02/2014 Inactive Spiriva with HandiHaler 18 mcg & inhalation capsules RxNorm: 527174 1 Capsule(s) INH QD 08/27/2014 10/02/2014 Inactive gabapentin 600 mg tablet RxNorm: 359398 1 Tablet(s) PO BID 08/27/20 14 10/22/2014 Inactive Endocet 10 mg-325 mg tablet RxNorm: 2051820 1-2 Tablet(s) PO Q4H 09/17/2014 Inactive PRN PAIN fentanyl 100 mcg/hr transdermal patch RxNorm: 392301 1 Unit Dos e TD QD 08/21/2014 09/19/2014 Inactive Daliresp 500 mcg tablet RxNorm: 5346491 1 Tablet(s) PO QD 08/13/2014 02/11/2015 Inactive Synthroid 112 mcg tablet RxNorm: 741540 TAKE ONE TABLET BY MOUTH ONE TIME A DAY. NEEDS LABS 08/10/2014 09/10/2014 Inactive Endocet 10 mg-325 mg tablet RxNorm: 5832331 1-2 Tablet(s) PO Q4H 08/17/2014 Inactive PRN PAIN Duragesic 100 mcg/hr transdermal patch RxNorm: 465091 2 Application TD Q48H for pain 07/19/2014 09/17/2014 Inactive fluoxetine 40 mg capsule RxNorm: 329053 1 Capsule(s) PO QD 07/17/20 14 01/14/2015 Inactive TAKE ONE CAPSULE BY MOUTH EV JANKI MORNING fluoxetine 20 mg capsule RxNorm: 709700 1 Capsule(s) PO QD 07/17/20 14 01/14/2015 Inactive Spiriva with HandiHaler 18 mcg & inhalation capsules RxNorm: 402990 1 Capsule(s) INH QD 07/17/2014 08/26/2014 Inactive INHALE CONTENTS OF 1 CAPSULE(S) WITH HANDIHALER ONCE DAILY Zofran 4 mg tablet RxNorm: 407484 1 Tablet(s) PO Q4H prn nausea 07/25/2014 Inactive Synthroid 112 mcg tablet RxNorm: 225106 1 Tablet(s) PO QD 07/09/2014 07/09/2014 Inactive methocarbamol 750 mg tablet RxNorm: 773053 2 Tablet(s) PO TID as needed for muscle spasm 07/09/2014 09/06/2014 Inactive Synthroid 112 mcg tablet RxNorm: 120008 1 Tablet(s) PO QD - nee d labs 07/09/2014 08/07/2014 Inactive Medrol (Aníbal) 4 mg tablets in a dose pack RxNorm: 819183 6 Tablet(s) PO QD --then as directed 07/03/2014 07/08/2014 Inactive Tudorza Pressair 400 mcg/actuation breath activated RxNorm: 6654890 1 Puff(s) INH BID 07/03/2014 12/17/2014 Inactive cefdinir 300 mg capsule RxNorm: 597312 1 Capsule(s) PO BID 07/03/20 14 07/12/2014 Inactive Topamax 100 mg tablet RxNorm: 001487 Tablet(s) TAKE ONE TABLET BY MOUTH AT BEDTIME 07/02/2014 02/25/2015 Inactive Duragesic 100 mcg/hr transdermal patch RxNorm: 858854 2 Application TD Q48H for pain 06/25/2014 07/18/2014 Inactive Endocet 10 mg-325 mg tablet RxNorm: 9678416 1-2 Tablet(s) PO Q4H 07/18/2014 Inactive PRN PAIN metformin ER 500 mg tablet,extended release 24 hr RxNorm: 86 0975 1 Tablet(s) PO QD Needs labs 06/18/2014 07/01/2014 Inactive take one tablet by mouth every day Duragesic 100 mcg/hr transdermal patch RxNorm: 328083 2 Application TD Q48H for pain 05/22/2014 06/24/2014 Inactive Synthroid 112 mcg tablet RxNorm: 330844 1 Tablet(s) PO QD 05/22/2014 07/09/2014 Inactive Endocet 10 mg-325 mg tablet RxNorm: 5121455 1-2 Tablet(s) PO Q4H 06/20/2014 Inactive PRN PAIN Endocet 10 mg-325 mg tablet RxNorm: 3624480 1-2 Tablet(s) PO Q4H 05/21/2014 Inactive PRN PAIN Duragesic 100 mcg/hr transdermal patch RxNorm: 373551 2 Application TD Q48H for pain 04/25/2014 05/21/2014 Inactive Daliresp 500 mcg tablet RxNorm: 6056377 1 Tablet(s) PO QD 04/24/2014 08/13/2014 Inactive Symbicort 160 mcg-4.5 mcg/actuation HFA aerosol inhaler RxNo rm: [id number] 2 Puff(s) INH BID 04/24/2014 08/21/2014 Inactive INHALE 2 PUFFS O RALLY TWO TIMES A DAY metformin ER 500 mg tablet,extended release 24 hr RxNorm: 86 0975 1 Tablet(s) PO QD 04/24/2014 11/12/2014 Inactive TAKE ONE TABLET BY MOUTH EVERY DAY [AttnRPh:Saving Apply/Adjudicate RxGRP:LDMGRP RxBIN:[id number] RxPCN:2012 PCode:01 ID#:[id number]] Symbicort 160 mcg-4.5 mcg/actuation HFA aerosol inhaler RxNo rm: [id number] 2 Puff(s) INH BID 04/24/2014 11/12/2014 Inactive INHALE 2 PUFFS O RALLY TWO TIMES A DAY Premarin 0.9 mg tablet RxNorm: 475397 1 Tablet(s) PO QD 04/24/2014 Inactive TAKE ONE TABLET BY MOUTH EVERY DAY metformin ER 500 mg tablet,extended release 24 hr RxNorm: 86 0975 1 Tablet(s) PO QD Needs labs 04/24/2014 06/18/2014 Inactive TAKE ONE TABLET BY MOUTH EVERY DAY [AttnRPh:Saving Apply/Adjudicate RxGRP:LDMGRP RxBIN:[id number] RxPCN:2012 PCode:01 ID#:[id number]] gabapentin 800 mg tablet RxNorm: 184498 1 Tablet(s) PO QD 04/24/2014 10/04/2014 Inactive TAKE ONE TABLET BY MOUTH EVERY DAY Topamax 100 mg tablet RxNorm: 167361 1 Tablet(s) PO QHS 04/17/2014 Inactive Topamax 100 mg tablet RxNorm: 043773 TAKE ONE TABLET BY MOUTH A T BEDTIME 04/17/2014 07/01/2014 Inactive Tudorza Pressair 400 mcg/actuation breath activated RxNorm: 8606476 1 Puff(s) INH BID 04/11/2014 07/02/2014 Inactive Duragesic 100 mcg/hr transdermal patch RxNorm: 784472 2 Application TD Q48H for pain 03/27/2014 04/24/2014 Inactive Endocet 10 mg-325 mg tablet RxNorm: 1612672 1-2 Tablet(s) PO Q4H 04/24/2014 Inactive PRN PAIN Robaxin 750 mg tablet RxNorm: 253220 2 Tablet(s) PO TID as need ed for spasm 02/23/2014 03/28/2015 Inactive Duragesic 100 mcg/hr transdermal patch RxNorm: 865898 2 Application TD Q48H for pain 02/23/2014 No Stop Date Active Endocet 10 mg-325 mg tablet RxNorm: 7984408 1-2 Tablet(s) PO Q4H 03/23/2014 Inactive PRN PAIN Synthroid 112 mcg tablet RxNorm: 329432 1 Tablet(s) PO QD TAKE ONE TABLET BY MOUTH EVERY DAY 02/15/2014 05/22/2014 Inactive Zithromax 500 mg tablet RxNorm: 099985 1 Tablet(s) PO QD 01/30/2014 0 02/05/2014 Inactive Diflucan 100 mg tablet RxNorm: 651456 1 Tablet(s) PO QD 01/30/2014 Inactive prednisone 20 mg tablet RxNorm: 537039 1 Tablet(s) PO BID 01/30/2014 02/05/2014 Inactive fluoxetine 40 mg capsule RxNorm: 902930 1 Capsule(s) PO QD 01/23/20 14 07/16/2014 Inactive TAKE ONE CAPSULE BY MOUTH EV JANKI MORNING fluoxetine 40 mg capsule RxNorm: 791489 1 Capsule(s) PO QD 01/23/20 14 07/17/2014 Inactive TAKE ONE CAPSULE BY MOUTH EV JANKI MORNING cefdinir 300 mg capsule RxNorm: 098477 1 Capsule(s) PO BID 01/16/20 14 01/29/2014 Inactive Zithromax 500 mg tablet RxNorm: 206632 1 Tablet(s) PO QD 01/16/2014 0 01/22/2014 Inactive prednisone 20 mg tablet RxNorm: 309008 1 Tablet(s) PO BID 01/16/2014 01/22/2014 Inactive Spiriva with HandiHaler 18 mcg and inhalation capsules RxNor m: 090487 1 Capsule(s) INH QD 12/18/2013 07/17/2014 Inactive INHALE CONTENT S OF 1 CAPSULE(S) WITH HANDIHALER ONCE DAILY fluoxetine 20 mg capsule RxNorm: 621426 1 Capsule(s) PO QD 12/18/19 14 06/15/2014 Inactive Spiriva with HandiHaler 18 mcg & inhalation capsules RxNorm: 146389 1 Capsule(s) INH QD 12/18/2013 06/15/2014 Inactive INHALE CONTENTS OF 1 CAPSULE(S) WITH HANDIHALER ONCE DAILY fluoxetine 20 mg capsule RxNorm: 793844 1 Capsule(s) PO QD 12/18/19 14 07/17/2014 Inactive cefdinir 300 mg capsule RxNorm: 619809 2 Capsule(s) PO QD 12/12/2013 12/21/2013 Inactive Duragesic 100 mcg/hr transdermal patch RxNorm: 813920 2 Application TD Q48H for pain 12/08/2013 12/07/2013 Inactive Topamax 100 mg tablet RxNorm: 646426 1 Tablet(s) PO QHS 12/04/2013 Inactive Endocet 10 mg-325 mg tablet RxNorm: 0792652 1-2 Tablet(s) PO Q4H 12/26/2013 Inactive PRN PAIN Robaxin 750 mg tablet RxNorm: 423272 2 Tablet(s) PO TID as need ed for spasm 11/07/2013 01/05/2014 Inactive gabapentin 800 mg tablet RxNorm: 008822 1 Tablet(s) PO QD 10/16/2013 04/24/2014 Inactive TAKE ONE TABLET BY MOUTH EVERY DAY Symbicort 160 mcg-4.5 mcg/actuation HFA aerosol inhaler RxNo rm: 4168658 2 Puff(s) INH BID 10/16/2013 04/24/2014 Inactive INHALE 2 PUFFS O RALLY TWO TIMES A DAY Premarin 0.9 mg tablet RxNorm: 899245 1 Tablet(s) PO QD 10/16/2013 Inactive TAKE ONE TABLET BY MOUTH EVERY DAY metformin ER 500 mg tablet,extended release 24 hr RxNorm: 86 0975 1 Tablet(s) PO QD 10/16/2013 04/24/2014 Inactive TAKE ONE TABLET BY MOUTH EVERY DAY Daliresp 500 mcg tablet RxNorm: 2689767 1 Tablet(s) PO QD 10/16/2013 04/24/2014 Inactive Robaxin 750 mg tablet RxNorm: 154525 2 Tablet(s) PO TID as need ed for spasm 10/10/2013 11/06/2013 Inactive Duragesic 100 mcg/hr transdermal patch RxNorm: 468018 2 Application TD Q48H for pain 10/09/2013 No Stop Date Active Soma 350 mg tablet RxNorm: 491989 1 Tablet(s) PO TID 09/27/201310/09 Inactive TAKE ONE TABLET BY MOUTH THREE TIMES A D AY lactulose 10 gram/15 mL oral solution RxNorm: 456642 [address](s) PO QD 09/13/2013 03/07/2015 Inactive TAKE 1 TABLESPOON BY MOUTH ONCE DAILY Duragesic 100 mcg/hr transdermal patch RxNorm: 444228 2 Application TD Q48H for pain 09/06/2013 No Stop Date Active Endocet 10 mg-325 mg tablet RxNorm: 5228192 1-2 Tablet(s) PO Q4H 09/27/2013 Inactive PRN PAIN lancets 28 gauge RxNorm: Miscellaneous As needed for blo od glucose sticks 08/24/2013 No Stop Date Active 16.2 mg-0.1037 mg-0.0194 mg tablet RxNorm: 6826269 Tablet(s) PO PRN for gas and cramping 08/24/2013 01/19/2017 Inactive TAKE TWO TABLET S BY MOUTH THREE TIMES A DAY NEEDED FOR GAS AND CRAMPING Topamax 100 mg tablet RxNorm: 026420 1 Tablet(s) PO QHS 07/31/2013 Inactive Diflucan 100 mg tablet RxNorm: 076135 1 Tablet(s) PO QD 07/27/2013 Inactive cefdinir 300 mg capsule RxNorm: 413744 1 Capsule(s) PO BID 07/26/20 13 08/08/2013 Inactive Daliresp 500 mcg tablet RxNorm: 4207043 1 Tablet(s) PO QD 07/25/2013 10/15/2013 Inactive fluoxetine 40 mg capsule RxNorm: 434239 1 Capsule(s) PO QD 07/25/20 13 01/22/2014 Inactive TAKE ONE CAPSULE BY MOUTH EV JANKI MORNING Senokot-S 8.6 mg-50 mg tablet RxNorm: 2097490 1 Tablet(s) PO BID 10/25/2013 Inactive doxycycline hyclate 100 mg capsule RxNorm: 2630213 1 Capsule(s) PO BID 06/28/2013 07/07/2013 Inactive prednisone 20 mg tablet RxNorm: 779424 1 Tablet(s) PO BID 06/28/2013 07/04/2013 Inactive Zofran 4 mg tablet RxNorm: 436598 1 Tablet(s) PO Q4H prn nausea 03/201307/05/2013 Inactive Spiriva with HandiHaler 18 mcg & inhalation capsules RxNorm: 258633 1 Capsule(s) INH QD 06/26/2013 12/18/2013 Inactive INHALE CONTENTS OF 1 CAPSULE(S) WITH HANDIHALER ONCE DAILY Synthroid 112 mcg tablet RxNorm: 917181 1 Tablet(s) PO QD TAKE ONE TABLET BY MOUTH EVERY DAY 06/19/2013 02/15/2014 Inactive fluoxetine 20 mg capsule RxNorm: 795822 1 Capsule(s) PO QD 06/19/20 13 12/18/2013 Inactive Ventolin HFA 90 mcg/actuation Aerosol Inhaler RxNorm: 6057847 2 Puff(s) INH Q4H 06/05/2013 No Stop Date Active prn Soma 350 mg tablet RxNorm: 923996 1 Tablet(s) PO TID 06/05/201307/04 Inactive TAKE ONE TABLET BY MOUTH THREE TIMES A D AY prednisone 20 mg tablet RxNorm: 448373 1 Tablet(s) PO QD 05/31/2013 0 06/06/2013 Inactive Topamax 100 mg tablet RxNorm: 767351 1 Tablet(s) PO QHS 05/22/2013 Inactive Levaquin 500 mg tablet RxNorm: 389300 1 Tablet(s) PO QD 05/03/2013 Inactive Diflucan 100 mg tablet RxNorm: 674668 1 Tablet(s) PO QD 05/03/2013 Inactive Daliresp 500 mcg tablet RxNorm: 2358138 1 Tablet(s) PO QD 05/01/2013 07/24/2013 Inactive Daliresp 500 mcg tablet RxNorm: 6771372 1 Tablet(s) PO QD 05/01/2013 04/30/2013 Inactive gabapentin 800 mg tablet RxNorm: 465708 1 Tablet(s) PO QD 04/10/2013 10/06/2013 Inactive TAKE ONE TABLET BY MOUTH EVERY DAY metformin ER 500 mg tablet,extended release 24 hr RxNorm: 86 0977 1 Tablet(s) PO QD 04/10/2013 10/06/2013 Inactive TAKE ONE TABLET BY MOUTH EVERY DAY Premarin 0.9 mg tablet RxNorm: 236695 1 Tablet(s) PO QD 04/10/2013 Inactive TAKE ONE TABLET BY MOUTH EVERY DAY Symbicort 160 mcg-4.5 mcg/actuation HFA aerosol inhaler RxNo rm: 5200239 2 Puff(s) INH BID 04/10/2013 10/06/2013 Inactive INHALE 2 PUFFS O RALLY TWO TIMES A DAY Synthroid 112 mcg tablet RxNorm: 855350 1 Tablet(s) PO QD TAKE ONE TABLET BY MOUTH EVERY DAY 04/10/2013 06/18/2013 Inactive Ventolin HFA 90 mcg/actuation Aerosol Inhaler RxNorm: 788070 2 Puff(s) INH Q4H 04/10/2013 No Stop Date Active prn fentanyl 100 mcg/hr transdermal patch RxNorm: 199102 1 Unit Dos e TD QD 04/03/2013 05/02/2013 Inactive Endocet 10 mg-325 mg tablet RxNorm: 9374277 1-2 Tablet(s) PO Q4H 05/02/2013 Inactive PRN PAIN Topamax 100 mg tablet RxNorm: 867777 1 Tablet(s) PO QHS 03/13/2013 Inactive Reglan 10 mg tablet RxNorm: 253372 1 Tablet(s) PO QID b efore meals and at bedtime 03/13/2013 04/09/2015 Inactive fluoxetine 20 mg capsule RxNorm: 951880 1 Capsule(s) PO QD 02/28/20 13 05/27/2013 Inactive Ventolin HFA 90 mcg/actuation Aerosol Inhaler RxNorm: 691114 2 Puff(s) INH Q4H 02/13/2013 No Stop Date Active prn fluoxetine 40 mg capsule RxNorm: 817111 1 Capsule(s) PO QD 01/31/20 13 07/24/2013 Inactive TAKE ONE CAPSULE BY MOUTH EV JANKI MORNING Soma 350 mg tablet RxNorm: 711596 1 Tablet(s) PO TID 01/20/201302/18 Inactive TAKE ONE TABLET BY MOUTH THREE TIMES A D AY Endocet 10 mg-325 mg tablet RxNorm: 0134283 1-2 Tablet(s) PO Q4H 02/06/2013 Inactive PRN PAIN MS Contin 200 mg tablet,extended release RxNorm: 472330 1 Table t(s) PO BID 01/18/2013 02/06/2013 Inactive Ventolin HFA 90 mcg/actuation Aerosol Inhaler RxNorm: 914829 2 Puff(s) INH Q4H 01/04/2013 No Stop Date Active prn Spiriva with HandiHaler 18 mcg & inhalation capsules RxNorm: 400808 1 Capsule(s) INH QD 12/29/2012 06/25/2013 Inactive INHALE CONTENTS OF 1 CAPSULE(S) WITH HANDIHALER ONCE DAILY Spiriva with HandiHaler 18 mcg & inhalation capsules RxNorm: 405734 1 Capsule(s) INH QD 12/26/2012 12/28/2012 Inactive INHALE CONTENTS OF 1 CAPSULE(S) WITH HANDIHALER ONCE DAILY Synthroid 112 mcg tablet RxNorm: 085438 Tablet(s) PO TA KE ONE TABLET BY MOUTH EVERY DAY 12/26/2012 04/09/2013 Inactive Endocet 10 mg-325 mg tablet RxNorm: 6568073 1-2 Tablet(s) PO Q4H 01/17/2013 Inactive PRN PAIN MS Contin 200 mg tablet,extended release RxNorm: 035216 1 Table t(s) PO BID 12/21/2012 01/17/2013 Inactive fluoxetine 20 mg capsule RxNorm: 973766 1 Capsule(s) PO QD 12/06/19 13 02/26/2013 Inactive Synthroid 112 mcg tablet RxNorm: 180970 1 Tablet(s) PO QD 12/06/2012 02/12/2019 Inactive TAKE ONE TABLET BY MOUTH EVERY DAY Ventolin HFA 90 mcg/actuation Aerosol Inhaler RxNorm: 554295 2 Puff(s) INH Q4H 12/06/2012 No Stop Date Active prn Reglan 10 mg tablet RxNorm: 524961 1 Tablet(s) PO QID b efore meals and at bedtime 11/24/2012 03/12/2013 Inactive Topamax 100 mg tablet RxNorm: 257172 1 Tablet(s) PO QHS 11/16/2012 Inactive Ventolin HFA 90 mcg/actuation Aerosol Inhaler RxNorm: 437163 2 Puff(s) INH Q4H 11/09/2012 No Stop Date Active prn gabapentin 800 mg tablet RxNorm: 609145 1 Tablet(s) PO QD 10/27/2012 04/09/2013 Inactive TAKE ONE TABLET BY MOUTH EVERY DAY metformin ER 500 mg tablet,extended release 24 hr RxNorm: 86 0977 1 Tablet(s) PO QD 10/27/2012 04/09/2013 Inactive TAKE ONE TABLET BY MOUTH EVERY DAY Symbicort 160 mcg-4.5 mcg/actuation HFA Aerosol Inhaler RxNo rm: 7652809 2 Puff(s) INH BID 10/27/2012 04/09/2013 Inactive INHALE 2 PUFFS O RALLY TWO TIMES A DAY Premarin 0.9 mg tablet RxNorm: 415086 1 Tablet(s) PO QD 10/27/2012 Inactive TAKE ONE TABLET BY MOUTH EVERY DAY Endocet 10 mg-325 mg tablet RxNorm: 3517437 1-2 Tablet(s) PO Q4H 11/24/2012 Inactive PRN PAIN MS Contin 200 mg tablet,extended release RxNorm: 591793 1 Table t(s) PO BID 10/26/2012 11/24/2012 Inactive Soma 350 mg tablet RxNorm: 200126 1 Tablet(s) PO TID 10/04/201211/02 Inactive TAKE ONE TABLET BY MOUTH THREE TIMES A D AY Ventolin HFA 90 mcg/actuation Aerosol Inhaler RxNorm: 672424 2 Puff(s) INH Q4H 10/03/2012 No Stop Date Active prn Daliresp 500 mcg tablet RxNorm: 5014302 1 Tablet(s) PO QD 09/28/2012 09/27/2012 Inactive Daliresp 500 mcg tablet RxNorm: 0202894 1 Tablet(s) PO QD 09/28/2012 04/25/2013 Inactive fluoxetine 20 mg capsule RxNorm: 963819 1 Capsule(s) PO QD 09/05/2012/06/2012 Inactive Topamax 50 mg tablet RxNorm: 956696 Tablet(s) PO for 1w k then 1 po q HS for 1wk then 2 po q HS 08/29/2012 09/27/2012 Inactive TAKE 1/2 TABLET BY MOUTH AT BEDTIME FOR 1 WEEK, THEN 1 TABLET AT BEDTIME FOR 1 WEEK, THEN 2 TABLETS AT BEDTIME Topamax 100 mg tablet RxNorm: 010242 1 Tablet(s) PO QHS 08/29/2012 Inactive Ventolin HFA 90 mcg/actuation Aerosol Inhaler RxNorm: 980828 2 Puff(s) INH Q4H 08/19/2012 No Stop Date Active prn Ventolin HFA 90 mcg/actuation Aerosol Inhaler RxNorm: 802009 2 Puff(s) INH Q4H 08/15/2012 No Stop Date Active prn Synthroid 112 mcg tablet RxNorm: 338244 1 Tablet(s) PO QD 08/10/2012 11/07/2012 Inactive TAKE ONE TABLET BY MOUTH EVERY DAY Synthroid 112 mcg tablet RxNorm: 637586 1 Tablet(s) PO QD 08/01/2012 08/09/2012 Inactive TAKE ONE TABLET BY MOUTH EVERY DAY Reglan 10 mg tablet RxNorm: 351238 1 Tablet(s) PO QID b efore meals and at bedtime 08/01/2012 11/23/2012 Inactive fluoxetine 40 mg capsule RxNorm: 623656 1 Capsule(s) PO QD 08/01/2001/27/2013 Inactive TAKE ONE CAPSULE BY MOUTH EV JANKI MORNING Ventolin HFA 90 mcg/actuation Aerosol Inhaler RxNorm: 044694 2 Puff(s) INH Q4H 08/01/2012 No Stop Date Active prn Soma 350 mg tablet RxNorm: 866838 1 Tablet(s) PO TID 07/20/201208/18 Inactive TAKE ONE TABLET BY MOUTH THREE TIMES A D AY Spiriva with HandiHaler 18 mcg & inhalation capsules RxNorm: 911099 1 Capsule(s) INH 07/01/2012 12/25/2012 Inactive INHALE CONTENTS OF 1 CAPSULE(S) WITH HANDIHALER ONCE DAILY Zithromax 250 mg Tab RxNorm: 510375 2 Tablet(s) PO QD 06/28/201206/22 Inactive MS Contin 200 mg tablet,extended release RxNorm: 156790 1 Table t(s) PO BID 06/28/2012 07/27/2012 Inactive Endocet 10 mg-325 mg tablet RxNorm: 0789000 1-2 Tablet(s) PO Q4H 07/27/2012 Inactive PRN PAIN Topamax 100 mg tablet RxNorm: 004742 1 Tablet(s) PO QHS 06/28/2012 Inactive 16.2 mg-0.1037 mg-0.0194 mg tablet RxNorm: 8919297 Tablet(s) PO PRN for gas and cramping 06/08/2012 08/23/2013 Inactive TAKE TWO TABLET S BY MOUTH THREE TIMES A DAY NEEDED FOR GAS AND CRAMPING Ventolin HFA 90 mcg/actuation Aerosol Inhaler RxNorm: 161855 2 Puff(s) INH Q4H 05/23/2012 No Stop Date Active prn Ventolin HFA 90 mcg/actuation Aerosol Inhaler RxNorm: 460184 2 Puff(s) INH Q4H 05/11/2012 No Stop Date Active prn Synthroid 112 mcg tablet RxNorm: 701533 1 Tablet(s) PO QD 05/09/2012 07/31/2012 Inactive TAKE ONE TABLET BY MOUTH EVERY DAY gabapentin 800 mg tablet RxNorm: 358934 1 Tablet(s) PO QD 05/09/2012 10/26/2012 Inactive TAKE ONE TABLET BY MOUTH EVERY DAY fluoxetine 40 mg capsule RxNorm: 686467 1 Capsule(s) PO QD 05/09/2007/31/2012 Inactive TAKE ONE CAPSULE BY MOUTH EV JANKI MORNING metformin ER 500 mg tablet,extended release 24 hr RxNorm: 86 0977 1 Tablet(s) PO QD 05/09/2012 10/26/2012 Inactive TAKE ONE TABLET BY MOUTH EVERY DAY Premarin 0.9 mg tablet RxNorm: 524868 1 Tablet(s) PO QD 05/09/2012 Inactive TAKE ONE TABLET BY MOUTH EVERY DAY Symbicort 160 mcg-4.5 mcg/actuation HFA Aerosol Inhaler RxNo rm: 9414109 2 Puff(s) INH BID 05/09/2012 10/26/2012 Inactive INHALE 2 PUFFS O RALLY TWO TIMES A DAY Endocet 10 mg-325 mg Tab RxNorm: 5669954 1-2 Tablet(s) PO Q4H 04/2705/26/2012 Inactive PRN PAIN MS Contin 200 mg Tab RxNorm: 417578 1 Tablet(s) PO BID 04/26/201202/2012 Inactive Ventolin HFA 90 mcg/actuation Aerosol Inhaler RxNorm: 985048 2 Puff(s) INH Q4H 04/25/2012 05/10/2012 Inactive prn Soma 350 mg tablet RxNorm: 856795 2 Tablet(s) PO TID 04/19/201207/19 Inactive TAKE ONE TABLET BY MOUTH THREE TIMES A D AY Ventolin HFA 90 mcg/actuation Aerosol Inhaler RxNorm: 724109 2 Puff(s) INH Q4H 04/12/2012 04/24/2012 Inactive prn Reglan 10 mg tablet RxNorm: 783545 1 Tablet(s) PO QID b efore meals and at bedtime 04/11/2012 07/31/2012 Inactive MS Contin 200 mg Tab RxNorm: 219459 1 Tablet(s) PO BID 03/30/201202/2012 Inactive Endocet 10 mg-325 mg Tab RxNorm: 4845653 1-2 Tablet(s) PO Q4H 03/3004/26/2012 Inactive PRN PAIN MS Contin 200 mg Tab RxNorm: 582945 1 Tablet(s) PO BID 03/02/201206/2012 Inactive Endocet 10 mg-325 mg Tab RxNorm: 9872158 1-2 Tablet(s) PO Q4H 03/0203/29/2012 Inactive PRN PAIN Daliresp 500 mcg tablet RxNorm: 2937699 1 Tablet(s) PO QD 03/01/2012 09/28/2012 Inactive MS Contin 200 mg Tab RxNorm: 782067 1 Tablet(s) PO BID 02/02/201208/2012 Inactive Endocet 10 mg-325 mg Tab RxNorm: 5137264 1-2 Tablet(s) PO Q4H 02/0103/01/2012 Inactive PRN PAIN fluoxetine 40 mg capsule RxNorm: 396427 1 Capsule(s) PO QD 02/02/2008/01/2012 Inactive TAKE ONE CAPSULE BY MOUTH EV JANKI MORNING Synthroid 112 mcg Tab RxNorm: 104277 1 Tablet(s) PO QD 01/18/2012 Inactive TAKE ONE TABLET BY MOUTH EVERY DAY lactulose 10 gram/15 mL oral solution RxNorm: 193550 [address]s) PO QD 01/18/2012 No Stop Date Active TAKE 1 TABLESPOON BY MOUTH ONCE DAILY Ventolin HFA 90 mcg/actuation Aerosol Inhaler RxNorm: 864391 2 Puff(s) INH Q4H 01/18/2012 04/11/2012 Inactive prn MS Contin 200 mg Tab RxNorm: 540741 1 Tablet(s) PO BID 01/05/201210/2012 Inactive Endocet 10 mg-325 mg Tab RxNorm: 6631325 1-2 Tablet(s) PO Q4H 01/0502/01/2012 Inactive PRN PAIN ProAir HFA 90 mcg/Actuation Aerosol Inhaler RxNorm: 980609 2 Pu ff(s) INH Q4H 12/21/2011 No Stop Date Active prn for wheezing or shortness of breath Spiriva with HandiHaler 18 mcg & inhalation Caps RxNorm: 580 261 1 Capsule(s) INH 12/21/2011 06/30/2012 Inactive INHALE CONTENTS OF 1 CAPSULE(S) WITH HANDIHALER ONCE DAILY Reglan 10 mg Tab RxNorm: 816591 1 Tablet(s) PO QID before meals and at bedtime 12/21/2011 04/10/2012 Inactive Synthroid 112 mcg Tab RxNorm: 261655 1 Tablet(s) PO QD 12/21/2011 Inactive TAKE ONE TABLET BY MOUTH EVERY DAY Endocet 10 mg-325 mg Tab RxNorm: 2501662 1-2 Tablet(s) PO Q4H 11/2512/24/2011 Inactive PRN PAIN MS Contin 200 mg Tab RxNorm: 297386 1 Tablet(s) PO BID 11/25/201112/2011 Inactive lactulose 10 gram/15 mL Oral Soln RxNorm: 744298 Milliliter(s) PO 1 No Stop Date Active TAKE 1 TABLESPOON BY MOUTH O NCE DAILY lactulose 10 gram/15 mL Oral Soln RxNorm: 724136 Milliliter(s) PO 1 12/12/2010 11/20/2011 Inactive TAKE 1 TABLESPOON BY MOUTH O NCE DAILY Premarin 0.9 mg Tab RxNorm: 920065 1 Tablet(s) PO QD 10/12/201105/08 Inactive TAKE ONE TABLET BY MOUTH EVERY DAY fluoxetine 20 mg capsule RxNorm: 014399 1 Capsule(s) PO QD 10/12/20 11 09/05/2012 Inactive TAKE ONE CAPSULE BY MOUTH Synthroid 112 mcg Tab RxNorm: 317733 1 Tablet(s) PO QD 10/12/2011 Inactive TAKE ONE TABLET BY MOUTH EVERY DAY metformin ER 500 mg 24 hr Tab RxNorm: 220189 1 Tablet(s) PO QD 09/2311/10/2011 Inactive TAKE ONE TABLET BY MOUTH GLYNN RY DAY Synthroid 112 mcg Tab RxNorm: 789520 1 Tablet(s) PO QD 10/12/2011 Inactive TAKE ONE TABLET BY MOUTH EVERY DAY metformin ER 500 mg 24 hr Tab RxNorm: 685262 1 Tablet(s) PO QD 09/2310/11/2011 Inactive TAKE ONE TABLET BY MOUTH GLYNN DAY Prevacid 30 mg Cap RxNorm: 149754 Capsule(s) PO 10/12/2011 01/25/2012 Inactive TAKE ONE CAPSULE BY MOUTH EVERY DAY Symbicort 160 mcg-4.5 mcg/actuation HFA Aerosol Inhaler RxNo rm: 2341561 2 Puff(s) INH BID 10/12/2011 05/08/2012 Inactive INHALE 2 PUFFS O RALLY TWO TIMES A DAY gabapentin 800 mg Tab RxNorm: 707583 1 Tablet(s) PO QD 10/12/2011 Inactive TAKE ONE TABLET BY MOUTH EVERY DAY MS Contin 200 mg Tab RxNorm: 242208 1 Tablet(s) PO BID 09/23/201111/2010 Inactive Endocet 10 mg-325 mg Tab RxNorm: 4368342 1-2 Tablet(s) PO Q4H 09/2310/22/2011 Inactive PRN PAIN Endocet 10 mg-325 mg Tab RxNorm: 6889708 1-2 Tablet(s) PO Q4H 08/2109/19/2011 Inactive PRN PAIN MS Contin 200 mg Tab RxNorm: 675475 1 Tablet(s) PO BID 08/21/2011 Inactive Diflucan 100 mg Tab RxNorm: 611074 1 Tablet(s) PO QD 08/10/201108/16 Inactive cefdinir 300 mg Cap RxNorm: 183183 2 Capsule(s) PO QD 08/10/201107/24 Inactive Reglan 10 mg Tab RxNorm: 170831 1 Tablet(s) PO AC & HS 07/15/2011 Inactive Endocet 10 mg-325 mg Tab RxNorm: 9230162 1-2 Tablet(s) PO Q4H 07/1508/13/2011 Inactive PRN PAIN One Touch Ultra Test strips RxNorm: Miscellaneous BID 06/11/2011 1 01/16/2014 Inactive TEST TWO TIMES A DAY lactulose 10 gram/15 mL Oral Soln RxNorm: 674591 Milliliter(s) PO 0 06/10/2011 10/11/2011 Inactive TAKE 1 TABLESPOON BY MOUTH O NCE DAILY Chantix Continuing Month Aníbal 1 mg Tab RxNorm: 931312 Tablet(s) PO 0 06/10/2011 11/02/2011 Inactive TAKE DIRECTED - PER PACKA GE INSTRUCTIONS fluoxetine 40 mg Cap RxNorm: 031271 Capsule(s) PO 06/10/2011 02/02/20 Inactive TAKE ONE CAPSULE BY MOUTH EVERY MORNING Chantix Continuing Month Aníbal 1 mg Tab RxNorm: 456461 Ta blet(s) PO TAKE DIRECTED - PER PACKAGE INSTRUCTIONS 05/13/2011 06/09/2011 Inactive Soma 350 mg Tab RxNorm: 944500 Tablet(s) PO TAKE ON E TABLET BY MOUTH THREE TIMES A DAY 05/13/2011 04/18/2012 Inactive Chantix Continuing Month Aníbal 1 mg Tab RxNorm: 500738 Ta blet(s) PO as directed per package instructions. 04/22/2011 05/12/2011 Inactive Symbicort 160 mcg-4.5 mcg/Actuation HFA Aerosol Inhaler RxNo rm: 4787687 HFA Aerosol Inhaler INH INHALE 2 PUFFS ORALLY TWO TIMES A DAY 04/13/2011 Inactive Synthroid 112 mcg Tab RxNorm: 630402 Tablet(s) PO TAKE ONE TABLET BY MOUTH EVERY DAY 04/13/2011 10/12/2011 Inactive Premarin 0.9 mg Tab RxNorm: 937802 Tablet(s) PO TAKE ON E TABLET BY MOUTH EVERY DAY 04/13/2011 10/12/2011 Inactive gabapentin 800 mg Tab RxNorm: 345516 Tablet(s) PO TAKE ONE TABLET BY MOUTH EVERY DAY 04/13/2011 10/12/2011 Inactive Prevacid 30 mg Cap RxNorm: 412851 1 Capsule(s) PO QD 04/13/201110/11 Inactive Spiriva with HandiHaler 18 mcg & inhalation Caps RxNorm: 580 261 Capsule(s) INH INHALE CONTENTS OF 1 CAPSULE(S) WITH HANDIHALER ONCE DAILY 04/13/2011 12/21/2011 Inactive metformin ER 500 mg 24 hr Tab RxNorm: 107996 Tablet(s) PO TAKE ONE TABLET BY MOUTH EVERY DAY 04/13/2011 10/12/2011 Inactive Soma 350 mg Tab RxNorm: 784070 1 Tablet(s) PO QID 03/30/2011 02/13/20 19 Inactive fluoxetine 20 mg Cap RxNorm: 509202 Capsule(s) PO TAKE ONE CAPSULE BY MOUTH EVERY DAY 03/25/2011 10/12/2011 Inactive cefdinir 300 mg Cap RxNorm: 994314 2 Capsule(s) PO QD 03/19/201105/2011 Inactive 16.2 mg-0.1037 mg-0.0194 mg Tab RxNorm: 0024792 2 Tablet(s) PO TID PRN for gas and cramping 03/16/2011 07/13/2011 Inactive Soma 350 mg Tab RxNorm: 734264 2 Tablet(s) PO TID 03/16/2011 03/29/20 11 Inactive Chantix Starting Month Aníbal 0.5 mg (11)-1 mg (3x14) Tab s in a Dose Pack RxNorm: 016143 Tablet(s) PO as directed 03/02/2011 No Stop Date Active diazepam 10 mg Tab RxNorm: 268007 1 Tablet(s) PO BID 02/10/201101/19 Inactive Zofran 4 mg tablet RxNorm: 104214 1 Tablet(s) PO Q4H prn nausea 02/16/2011 Inactive Diflucan 100 mg Tab RxNorm: 794657 1 Tablet(s) PO QD 01/18/201101/24 Inactive Premarin 0.625 mg/g Vaginal Cream RxNorm: 459226 VAG In sert 1gm vaginally at bedtime 3 times weekly 01/18/2011 02/12/2019 Inactive loratadine 10 mg Tab RxNorm: 4472519 1 Tablet(s) PO QD 12/17/201003/2012 Inactive Spiriva with HandiHaler 18 mcg & inhalation Caps RxNorm: 580 261 1 Capsule(s) INH QD 12/17/2010 04/12/2011 Inactive Diflucan 100 mg Tab RxNorm: 565072 1 Tablet(s) PO QD 12/17/201012/23 Inactive diazepam 10 mg Tab RxNorm: 398290 1 Tablet(s) PO BID and PRN 201002/12/2019 Inactive One Touch Ultra Test Strips RxNorm: InVt BID Zainab t blood sugar at least twice daily. 11/11/2010 06/11/2011 Inactive fluoxetine 40 mg Cap RxNorm: 843015 1 Capsule(s) PO QAM 11/11/2010 Inactive diazepam 10 mg Tab RxNorm: 585254 1 Tablet(s) PO BID and PRN 200911/12/2010 Inactive Bactrim DS 800 mg-160 mg Tab RxNorm: 655542 1 Tablet(s) PO BID 09/2210/15/2010 Inactive fluoxetine 20 mg Cap RxNorm: 453918 1 Capsule(s) PO QD 10/02/201008/2011 Inactive Bactrim DS 800 mg-160 mg Tab RxNorm: 943618 1 Tablet(s) PO BID 01/201010/03/2010 Inactive Zofran 4 mg Tab RxNorm: 142431 1 Tablet(s) PO Q4H prn nausea 200910/16/2010 Inactive 16.2 mg-0.1037 mg-0.0194 mg Tab RxNorm: 2050013 2 Tablet(s) PO TID PRN for gas and cramping 09/17/2010 10/21/2010 Inactive Gabapentin 800 mg Tab RxNorm: 489562 1 Tablet(s) PO QD 09/16/2010 Inactive ProAir HFA 90 mcg/Actuation Aerosol Inhaler RxNorm: 939797 2 Puff(s) INH Q4H prn shortness of breath 09/15/2010 12/13/2010 Inactive gabapentin 800 mg Tab RxNorm: 331609 1 Tablet(s) PO QD 09/15/2010 Inactive Prevacid 30 mg Cap RxNorm: 930463 1 Capsule(s) PO QD 09/15/201004/12 Inactive loratadine 10 mg Tab RxNorm: 8234220 1 Tablet(s) PO QD 09/15/2010 Inactive Premarin 0.9 mg Tab RxNorm: 946880 1 Tablet(s) PO QD 09/15/201004/12 Inactive Synthroid 112 mcg Tab RxNorm: 210148 1 Tablet(s) PO QD 09/15/2010 Inactive metformin ER 500 mg 24 hr Tab RxNorm: 168275 1 Tablet(s) PO QD 08/2304/12/2011 Inactive Symbicort 160 mcg-4.5 mcg/Actuation Inhalation HFA Aer osol Inhaler RxNorm: 2982977 2 Puff(s) INH BID 09/15/2010 04/12/2011 Inactive diazepam 10 mg Tab RxNorm: 733806 1 Tablet(s) PO BID and PRN 200910/13/2010 Inactive Phentermine 37.5 mg Cap RxNorm: 915029 1 Capsule(s) PO QD 09/02/2010 11/02/2011 Inactive ProAir HFA 90 mcg/Actuation Aerosol Inhaler RxNorm: 599556 2 Puff(s) INH Q4H prn shortness of breath 08/07/2010 No Stop Date Active Premarin 0.9 mg Tab RxNorm: 594380 1 Tablet(s) PO QD 08/07/201009/14 Inactive Loratadine 10 mg Tab RxNorm: 0039925 1 Tablet(s) PO QD 08/07/2010 Inactive Lactulose 10 gram/15 mL Oral Soln RxNorm: 176942 1 Unit Dose PO QD 08/07/2010 02/12/2019 Inactive Zofran 4 mg Tab RxNorm: 022205 1 Tablet(s) PO Q4H prn nausea 2009 No Stop Date Active Gabapentin 800 mg Tab RxNorm: 191690 1 Tablet(s) PO QD 08/07/2010 Inactive Synthroid 112 mcg Tab RxNorm: 619227 1 Tablet(s) PO QD 08/07/2010 Inactive Metformin ER 500 mg 24 hr Tab RxNorm: 162072 1 Tablet(s) PO QD 07/2309/14/2010 Inactive Vitamin D 1,000 unit Tab RxNorm: 231739 1 Tablet(s) PO TID 08/07/20 10 02/12/2019 Inactive Symbicort 160 mcg-4.5 mcg/Actuation Inhalation HFA Aer osol Inhaler RxNorm: 8852603 2 Puff(s) INH BID 08/07/2010 09/14/2010 Inactive Prevacid 30 mg Cap RxNorm: 712470 1 Capsule(s) PO QD 08/07/201009/14 Inactive Metformin ER 500 mg 24 hr Tab RxNorm: 325516 1 Tablet(s) PO QD 06/2308/06/2010 Inactive Vitamin D 1,000 unit Tab RxNorm: 295083 1 Tablet(s) PO TID 07/14/2008/06/2010 Inactive Synthroid 112 mcg Tab RxNorm: 426589 1 Tablet(s) PO QD 07/14/2010 Inactive Lactulose 10 gram/15 mL Oral Soln RxNorm: 911532 1 Unit Dose PO QD 07/14/2010 08/06/2010 Inactive Levaquin 500 mg Tab RxNorm: 214727 1 Tablet(s) PO QD 07/14/201007/27 Inactive Premarin 0.9 mg Tab RxNorm: 289890 1 Tablet(s) PO QD 07/14/201008/06 Inactive ProAir HFA 90 mcg/Actuation Aerosol Inhaler RxNorm: 511399 2 Puff(s) INH Q4H prn shortness of breath 07/14/2010 No Stop Date Active Prevacid 30 mg Cap RxNorm: 093849 1 Capsule(s) PO QD 07/14/201008/06 Inactive Zofran 4 mg Tab RxNorm: 144815 1 Tablet(s) PO Q4H prn nausea 2009 No Stop Date Active Symbicort 160 mcg-4.5 mcg/Actuation Inhalation HFA Aer osol Inhaler RxNorm: 0127838 2 Puff(s) INH BID 07/14/2010 08/06/2010 Inactive Loratadine 10 mg Tab RxNorm: 0603778 1 Tablet(s) PO QD 07/14/2010 Inactive Gabapentin 800 mg Tab RxNorm: 085488 1 Tablet(s) PO QD 07/14/2010 Inactive Metformin ER 500 mg 24 hr Tab RxNorm: 850118 1 Tablet(s) PO 010 07/13/2010 Inactive Diazepam 10 mg Tab RxNorm: 878252 1 Tablet(s) PO BID and PRN 200909/06/2010 Inactive Premarin 0.9 mg Tab RxNorm: 751228 1 Tablet(s) PO QD 06/09/201007/13 Inactive Zofran 4 mg Tab RxNorm: 806916 1 Tablet(s) PO Q4H prn nausea 2009 No Stop Date Active ProAir HFA 90 mcg/Actuation Aerosol Inhaler RxNorm: 912229 2 Puff(s) INH Q4H prn shortness of breath 06/09/2010 No Stop Date Active Gabapentin 800 mg Tab RxNorm: 882893 1 Tablet(s) PO QD 06/09/2010 Inactive Loratadine 10 mg Tab RxNorm: 8009898 1 Tablet(s) PO QD 06/09/2010 Inactive Lactulose 10 gram/15 mL Oral Soln RxNorm: 536443 1 Unit Dose PO QD 06/09/2010 07/13/2010 Inactive Prevacid 30 mg Cap RxNorm: 465876 1 Capsule(s) PO QD 06/09/201007/13 Inactive Synthroid 112 mcg Tab RxNorm: 141149 1 Tablet(s) PO QD 06/09/2010 Inactive Symbicort 160 mcg-4.5 mcg/Actuation Inhalation HFA Aer osol Inhaler RxNorm: 4739479 2 Puff(s) INH BID 06/09/2010 07/13/2010 Inactive Omnicef 300 mg Cap RxNorm: 439779 2 Capsule(s) PO QD 05/07/201005/20 Inactive Metformin 500 mg Tab RxNorm: 365137 1 Tablet(s) PO QD 05/06/201005/22 Inactive ProAir HFA 90 mcg/Actuation Aerosol Inhaler RxNorm: 093601 2 Puff(s) INH Q4H prn shortness of breath 05/06/2010 No Stop Date Active lactulose 10 gram/15 mL Oral Soln RxNorm: 769620 1 Unit Dose PO QD 05/06/2010 06/10/2011 Inactive Loratadine 10 mg Tab RxNorm: 6359397 1 Tablet(s) PO QD 05/06/2010 Inactive Synthroid 112 mcg Tab RxNorm: 946528 1 Tablet(s) PO QD 05/06/2010 Inactive Symbicort 160 mcg-4.5 mcg/Actuation Inhalation HFA Aer osol Inhaler RxNorm: 1762925 2 Puff(s) INH BID 05/06/2010 06/08/2010 Inactive Gabapentin 800 mg Tab RxNorm: 773150 1 Tablet(s) PO QD 05/06/2010 Inactive 16.2 mg-0.1037 mg-0.0194 mg Tab RxNorm: 3113103 2 Tablet(s) PO TID PRN for gas and cramping 05/06/2010 05/12/2010 Inactive Zofran 4 mg Tab RxNorm: 185352 1 Tablet(s) PO Q4H prn nausea 200904/13/2010 Inactive MS Contin 60 mg Tab RxNorm: 220942 3 Tablet(s) PO BID 04/09/201004/22 Inactive Soma 350 mg Tab RxNorm: 904404 2 Tablet(s) PO TID 04/09/2010 05/08/20 10 Inactive Symbicort 160 mcg-4.5 mcg/Actuation Inhalation HFA Aer osol Inhaler RxNorm: 3437138 2 Puff(s) INH BID 04/08/2010 05/05/2010 Inactive Doxycycline 100 mg Cap RxNorm: 7404486 1 Capsule(s) PO BID 04/08/20 10 04/17/2010 Inactive Triamterene-Hydrochlorothiazide 37.5 mg-25 mg Cap RxNorm: 19 8316 1 Capsule(s) PO QAM 04/08/2010 09/04/2010 Inactive fluoxetine 40 mg Cap RxNorm: 348860 1 Capsule(s) PO QAM 04/08/2010 Inactive Morphine SR 120 mg multiphase 24 hr Cap RxNorm: 003011 1 Capsul e(s) PO 03/11/2010 04/07/2010 Inactive Endocet 10 mg-325 mg Tab RxNorm: 4174062 1-2 Tablet(s) PO Q4H [place] N PAIN 03/11/2010 04/09/2010 Inactive Savella 100 mg Tab RxNorm: 514836 1 Tablet(s) PO BID 03/10/201004/09 Inactive Soma 350 mg Tab RxNorm: 662664 1 Tablet(s) PO TID prn spasm 010 04/09/2010 Inactive Savella 100 mg Tab RxNorm: 479166 1 Tablet(s) PO BID 02/03/201004/09 Inactive Aspirin 81 mg Tab RxNorm: 424260 1 Tablet(s) PO QD No Start Date Active Zyrtec 10 mg Tab RxNorm: 4533139 1 Tablet(s) PO QD No Start Date Active One Touch Ultra Test Strips RxNorm: Misc test at least t wice daily. No Start Date Active coenzyme Q10 200 mg capsule RxNorm: 027022 1 Capsule(s) PO QD No Star t Date Active One Touch Ultra Test Strips RxNorm: InVt BID Zainab t blood sugar at least twice daily. No Start Date 11/10/2010 Inactive Gabapentin 800 mg Tab RxNorm: 642361 1 Tablet(s) PO QD No Start Date 05/05/2010 Inactive Abilify 5 mg tablet RxNorm: 206417 1 Tablet(s) PO QD No Start Date Inactive Chantix 1 mg Tab RxNorm: 949986 1 Tablet(s) PO BID No Start Date 10/22 Inactive Ozempic 0.25 mg or 0.5 mg (2 mg/1.5 mL) subcutaneous p en injector RxNorm: 0000331 .25 Milligram(s) SQ QW No Start Date 07/04/2019 Inactive lancets 28 gauge RxNorm: Miscellaneous As needed for blo od glucose sticks No Start Date 08/23/2013 Inactive potassium chloride ER 20 mEq tablet,extended release RxNorm: 192089 2 Tablet(s) PO QD No Start Date 09/26/2018 Inactive Ventolin HFA 90 mcg/actuation Aerosol Inhaler RxNorm: 148230 2 Puff(s) INH Q4H prn No Start Date 01/17/2012 Inactive potassium chloride ER 20 mEq tablet,extended release RxNorm: 812040 2 Tablet(s) PO QD No Start Date 10/19/2018 Inactive Januvia 100 mg tablet RxNorm: 295688 1 Tablet(s) PO QD No Start Date 09/10/2015 Inactive Medrol (Aníbal) 4 mg Tabs in a Dose Pack RxNorm: 446318 Tablet(s) PO N o Start Date 08/09/2011 Inactive as directed Zithromax Z-Aníbal 250 mg Tab RxNorm: 812014 Tablet(s) PO No Start Date 01/25/2012 Inactive as directed vitamin B6-vitamin E-magnesium tablet RxNorm: 1 Tablet(s ) PO QHS with INH No Start Date 03/30/2018 Inactive prednisone 20 mg Tab RxNorm: 966629 1 Tablet(s) PO TID for 1wk then 1 po BID for 1wk No Start Date 01/25/2012 Inactive furosemide 40 mg tablet RxNorm: 573026 1 Tablet(s) PO QAM No Start Date 10/09/2018 Inactive Vitamin D3 1000 units Capsule RxNorm: 1 Capsule(s) PO TID No S tart Date 03/19/2015 Inactive Zofran 4 mg Tab RxNorm: 434991 1 Tablet(s) PO Q4H prn nausea No Sta rt Date 04/13/2010 Inactive Premarin 0.625 mg/g Vaginal Cream RxNorm: 817405 1 Gram (s) VAG QHS 3 times a week No Start Date 09/22/2017 Inactive oxycodone 10 mg tablet RxNorm: 6820915 1-2 Tablet(s) PO QID as n eeded for pain No Start Date 11/04/2015 Inactive Nicoderm CQ 21 mg/24 hr daily Patch RxNorm: 404469 1 Applicatio n TD QD No Start Date 08/05/2015 Inactive Topamax 50 mg tablet RxNorm: 207674 1/2 Tablet(s) PO QH S for 1wk then 1 po q HS for 1wk then 2 po q HS No Start Date 06/27/2012 Inactive Chantix Starting Month Aníbal 0.5 mg (11)-1 mg (3x14) Tab s in a Dose Pack RxNorm: 617364 Tablet(s) PO as directed No Start Date 03/01/2011 Inactive Trulicity 0.75 mg/0.5 mL subcutaneous pen injector RxNorm: 1 576923 Milliliter(s) SQ No Start Date 07/04/2019 Inactive Medrol (Aníbal) 4 mg Tabs in a Dose Pack RxNorm: 172733 Tablet(s) PO N o Start Date 01/25/2012 Inactive as directed Duragesic 100 mcg/hr Transderm Patch RxNorm: 579086 2 A pplication TD Q48H for pain No Start Date 09/05/2013 Inactive Premarin 0.9 mg Tab RxNorm: 878494 1 Tablet(s) PO QD No Start Date Inactive Zithromax Z-Aníbal 250 mg Tab RxNorm: 020937 Tablet(s) PO as direc chinmay No Start Date 01/25/2012 Inactive ondansetron 8 mg disintegrating tablet RxNorm: 211559 1 Tablet(s) PO Q6H as needed No Start Date 10/10/2018 Inactive oxycodone 15 mg tablet RxNorm: 0538230 1 Tablet(s) PO QID as nee ded for pain No Start Date 03/05/2019 Inactive ProAir HFA 90 mcg/Actuation Aerosol Inhaler RxNorm: 045580 2 Puff(s) INH Q4H prn for wheezing or shortness of breath No Start Date 12/21/2011 Inactive pravastatin 40 mg tablet RxNorm: 193852 1/2 Tablet(s) PO QOD No Sta rt Date 04/09/2015 Inactive ipratropium-albuterol 0.5 mg-3 mg(2.5 mg base)/3 mL ne bulization soln RxNorm: 5987510 1 Unit Dose INH Q4H as needed No Start Date 09/09/2016 Inactive furosemide 40 mg tablet RxNorm: 957106 1 Tablet(s) PO QAM as ne eded No Start Date 09/24/2019 Inactive Vitamin D2 oral RxNorm: 4018 oral No Start Date 03/18/2015 Inacti ve pravastatin 40 mg tablet RxNorm: 008364 1/2 Tablet(s) PO QD No Star t Date 04/09/2015 Inactive ondansetron HCl 4 mg tablet RxNorm: 249281 1 Tablet(s) PO Q4H as needed for nausea and vomiting No Start Date 04/07/2016 Inactive furosemide 40 mg tablet RxNorm: 727933 2 Tablet(s) PO QAM No Start Date 09/26/2018 Inactive gabapentin 800 mg tablet RxNorm: 577980 1/2 Tablet(s) PO BID No Sta rt Date 06/21/2017 Inactive gabapentin 800 mg tablet RxNorm: 644374 1/2 Tablet(s) PO BID No Sta rt Date 07/05/2017 Inactive ProAir HFA 90 mcg/Actuation Aerosol Inhaler RxNorm: 625789 2 Puff(s) INH Q4H prn shortness of breath No Start Date 05/05/2010 Inactive scopolamine 1 mg over 3 days transdermal patch RxNorm: 78138 2 1 Application TD behind ear. Take off after three days No Start Date 10/10/2018 Inactive Metformin 500 mg Tab RxNorm: 951194 1 Tablet(s) PO QD No Start Date 0 05/05/2010 Inactive MS Contin 200 mg Tab RxNorm: 012480 1 Tablet(s) PO BID No Start Date 08/20/2011 Inactive Belladonna-Phenobarbital 48 mg tablet,extended release RxNor m: 2 Tablet(s) PO TID No Start Date 06/04/2016 Inactive Synthroid 112 mcg Tab RxNorm: 204085 1 Tablet(s) PO QD No Start Date 05/05/2010 Inactive Zegerid 40 mg-1.1 gram Cap RxNorm: 120560 1 Capsule(s) PO QD No Sta rt Date 01/25/2012 Inactive Premarin 0.625 mg/g Vaginal Cream RxNorm: 717558 VAG In sert 1gm vaginally at bedtime 3 times weekly No Start Date 01/17/2011 Inactive potassium chloride ER 20 mEq tablet,extended release RxNorm: 467333 1 Tablet(s) PO QD No Start Date 04/24/2019 Inactive methocarbamol 750 mg tablet RxNorm: 530461 2 Tablet(s) PO TID as needed for muscle spasm No Start Date 07/08/2014 Inactive Biaxin XL Aníbal 500 mg 24 hr Tab RxNorm: 004635 Tablet(s) PO as d irected No Start Date 04/24/2013 Inactive Vitamin D3 1,000 unit tablet RxNorm: 581461 3 Tablet(s) PO QD No St art Date 06/01/2017 Inactive Morphine SR 120 mg multiphase 24 hr Cap RxNorm: 786236 1 Capsul e(s) PO BID No Start Date 04/09/2010 Inactive Silvadene 1 % topical cream RxNorm: 558368 1 Application TOP BI D to burn area No Start Date 01/31/2017 Inactive Prednisone 20 mg Tab RxNorm: 475578 1 Tablet(s) PO TID for 3days then BID for 4days No Start Date 01/25/2012 Inactive gabapentin 600 mg tablet RxNorm: 520714 1 Tablet(s) PO BID No Start Date 01/21/2015 Inactive topiramate 50 mg tablet RxNorm: 110931 1 Tablet(s) PO QHS No Start Date 03/30/2018 Inactive Januvia 100 mg tablet RxNorm: 169884 1/2 Tablet(s) PO QD No Start D ate 12/25/2015 Inactive Diazepam 10 mg Tab RxNorm: 341615 1 Tablet(s) PO BID and PRN No Sta rt Date 06/08/2010 Inactive Medication Administered No Medication Administered data Immunizations Vaccine Codes Date Status Influenza CVX: 141 09/28/2012 Pneumovax Unknown 09/28/2012 Influenza (Adult) CVX: 141 09/02/2010 Results No Results data Procedures Procedure Codes Date THER/PROPH/DIAG INJ SC/IM CPT-4: 65011 07/10/2019 METHYLPREDNISOLONE INJECTION CPT-4: J2930 07/10/2019 URINALYSIS NONAUTO W/O SCOPE CPT-4: 77662 09/06/2018 URINE CULTURE/ COLONY COUNT CPT-4: 24054 09/06/2018 DRAIN/INJECT JOINT/BURSA CPT-4: 21277 04/29/2017 TRIAMCINOLONE ACET INJ NOS CPT-4: J3301 04/29/2017 DEXAMETHASONE SODIUM PHOS CPT-4: J1100 04/29/2017 INFLUENZA ASSAY W/OPTIC CPT-4: 34373 12/01/2016 RESPIRATORY CULTURE & STAIN CPT-4: 54571 07/09/2016 TB INTRADERMAL TEST CPT-4: 84104 04/21/2016 DRAIN/INJECT JOINT/BURSA CPT-4: 55411 11/07/2013 METHYLPREDNISOLONE 40 MG INJ CPT-4: J1030 11/07/2013 TRIAMCINOLONE ACET INJ NOS CPT-4: J3301 11/07/2013 DRAIN/INJECT JOINT/BURSA CPT-4: 00326 08/08/2013 METHYLPREDNISOLONE 40 MG INJ CPT-4: J1030 08/08/2013 TRIAMCINOLONE ACET INJ NOS CPT-4: J3301 08/08/2013 FLU VACCINE 3 YRS & > IM UP 64 CPT-4: 13961 2 PNEUMOCOCCAL VACC 23 ADITYA IM CPT-4: 19793 09/28/2012 IMMUNIZATION ADMIN CPT-4: 08950 09/28/2012 IMMUNIZATION ADMIN EACH ADD CPT-4: 14321 09/28/2012 FLU VACCINE 3 YRS & > IM UP 64 CPT-4: 22091 0 IMMUNIZATION ADMIN CPT-4: 84144 09/02/2010 METHYLPREDNISOLONE INJECTION CPT-4: J2930 05/07/2010 THER/PROPH/DIAG INJ SC/IM CPT-4: 95787 05/07/2010 Vital Signs Date Vital 11/29/2019 Blood [...] 1: 122/78 Code: 8480-6 BMI: 29.5 Code: 17918-6 Heart Rate 1: 76 bpm Height: 5'4" Respiratory Rate: 20 bpm SpO2: 96% Tempera ture: 37.0 (C) / 98.6 (F) Weight: 172 lbs 01/25/2019 Blood Pressure 1: 132/80 Code: 8480-6 BMI: 29.7 Code: 17369-6 Heart Rate 1: 84 bpm Height: 5'4" Respiratory Rate: 22 bpm SpO2: 98% Tempera ture: 36.9 (C) / 98.4 (F) Weight: 173 lbs 01/03/2019 Blood Pressure 1: 116/70 Code: 8480-6 BMI: 29.5 Code: 71612-7 Heart Rate 1: 92 bpm Height: 5'4" Respiratory Rate: 24 bpm SpO2: 98% Tempera ture: 37.2 (C) / 98.9 (F) Weight: 172 lbs 11/21/2018 Blood Pressure 1: 146/82 Code: 8480-6 BMI: 28.2 Code: 24291-6 Heart Rate 1: 88 bpm Height: 5'4" Respiratory Rate: 22 bpm SpO2: 97% Tempera ture: 36.9 (C) / 98.4 (F) Weight: 164 lbs 10/27/2018 Blood Pressure 1: 122/70 Code: 8480-6 BMI: 27.6 Code: 80731-6 Heart Rate 1: 88 bpm Height: 5'4" Respiratory Rate: 20 bpm SpO2: 96% Tempera ture: 36.8 (C) / 98.3 (F) Weight: 161 lbs 10/18/2018 Blood Pressure 1: 126/70 Code: 8480-6 BMI: 28.3 Code: 93797-7 Heart Rate 1: 76 bpm Height: 5'4" Respiratory Rate: 20 bpm SpO2: 95% Tempera ture: 37.0 (C) / 98.6 (F) Weight: 165 lbs 09/27/2018 Blood Pressure 1: 124/78 Code: 8480-6 BMI: 27.1 Code: 68244-6 Heart Rate 1: 88 bpm Height: 5'4" Respiratory Rate: 20 bpm SpO2: 98% Tempera ture: 36.4 (C) / 97.6 (F) Weight: 158 lbs 09/14/2018 Blood Pressure 1: 140/72 Code: 8480-6 BMI: 26.1 Code: 91145-1 Heart Rate 1: 100 bpm Height: 5'4" Respiratory Rate: 20 bpm SpO2: 97% Tempera ture: 36.9 (C) / 98.4 (F) Weight: 152 lbs 09/06/2018 Blood Pressure 1: 156/82 Code: 8480-6 BMI: 26.3 Code: 92807-6 Heart Rate 1: 100 bpm Height: 5'4" Respiratory Rate: 28 bpm SpO2: 95% Tempera ture: 37.2 (C) / 98.9 (F) Weight: 153 lbs 08/16/2018 Blood Pressure 1: 130/78 Code: 8480-6 Heart Rate 1: 87 bpm Respiratory Rate: 24 bpm SpO2: 94% Temperature: 36.9 (C) / 98.4 (F) We ight: 147 lbs 8 oz 07/07/2018 Blood Pressure 1: 116/78 Code: 8480-6 BMI: 22.7 Code: 78365-1 Heart Rate 1: 88 bpm Height: 5'4" Respiratory Rate: 22 bpm SpO2: 98% Tempera ture: 36.5 (C) / 97.7 (F) Weight: 132 lbs 05/31/2018 Blood Pressure 1: 128/78 Code: 8480-6 BMI: 22.3 Code: 82557-8 Heart Rate 1: 92 bpm Height: 5'4" Respiratory Rate: 26 bpm SpO2: 94% Tempera ture: 36.7 (C) / 98.1 (F) Weight: 130 lbs 03/31/2018 Blood Pressure 1: 136/78 Code: 8480-6 BMI: 21.5 Code: 11719-5 Heart Rate 1: 76 bpm Height: 5'4" Respiratory Rate: 24 bpm SpO2: 95% Tempera ture: 36.8 (C) / 98.3 (F) Weight: 125 lbs 01/26/2018 Blood Pressure 1: 142/64 Code: 8480-6 BMI: 20.6 Code: 58279-7 Heart Rate 1: 90 bpm Height: 5'4" Respiratory Rate: 24 bpm SpO2: 92% Tempera ture: 36.3 (C) / 97.3 (F) Weight: 120 lbs 10/26/2017 Blood Pressure 1: 124/70 Code: 8480-6 BMI: 20.3 Code: 77996-6 Heart Rate 1: 76 bpm Height: 5'4" Respiratory Rate: 22 bpm SpO2: 94% Tempera ture: 36.7 (C) / 98.1 (F) Weight: 118 lbs 09/23/2017 Blood Pressure 1: 106/70 Code: 8480-6 BMI: 19.2 Code: 77798-4 Heart Rate 1: 76 bpm Height: 5'4" Respiratory Rate: 20 bpm SpO2: 94% Tempera ture: 36.8 (C) / 98.3 (F) Weight: 112 lbs 08/12/2017 Blood Pressure 1: 116/68 Code: 8480-6 BMI: 20.1 Code: 56768-6 Heart Rate 1: 80 bpm Height: 5'4" Respiratory Rate: 22 bpm SpO2: 95% Tempera ture: 36.8 (C) / 98.2 (F) Weight: 117 lbs 07/06/2017 Blood Pressure 1: 136/78 Code: 8480-6 BMI: 20.6 Code: 22259-1 Heart Rate 1: 76 bpm Height: 5'4" Respiratory Rate: 24 bpm SpO2: 96% Tempera ture: 36.8 (C) / 98.2 (F) Weight: 120 lbs 06/02/2017 Blood Pressure 1: 112/70 Code: 8480-6 Heart Rate 1: 92 bpm Height: 5'4" Respiratory Rate: 24 bpm SpO2: 95% Temperature: 37.0 (C) / 98.6 (F) Weight: 04/29/2017 Blood Pressure 1: 94/52 Code: 8480-6 BMI: 19.6 C ode: 63718-5 Heart Rate 1: 84 bpm Height: 5'4" [...] 92/58 Code: 8480-6 BMI: 19.2 C ode: 32034-0 Heart Rate 1: 84 bpm Height: 5'4" Respiratory Rate: 26 bpm SpO2: 95% Tempera ture: 36.7 (C) / 98.0 (F) Weight: 112 lbs 12/01/2016 Blood Pressure 1: 114/70 Code: 8480-6 BMI: 19.2 Code: 44670-5 Heart Rate 1: 96 bpm Height: 5'4" Respiratory Rate: 28 bpm SpO2: 93% Tempera ture: 38.3 (C) / 101.0 (F) Weight: 112 lbs 10/27/2016 Blood Pressure 1: 126/66 Code: 8480-6 BMI: 19.6 Code: 13799-0 Heart Rate 1: 92 bpm Height: 5'4" Respiratory Rate: 28 bpm SpO2: 90% Tempera ture: 36.8 (C) / 98.3 (F) Weight: 114 lbs 09/09/2016 Blood Pressure 1: 126/74 Code: 8480-6 Heart Rate 1: 104 bpm Height: 5'4" Respiratory Rate: 32 bpm SpO2: 88% Temperature: 37 .2 (C) / 99.0 (F) 08/26/2016 Blood Pressure 1: 134/82 Code: 8480-6 BMI: 22.0 Code: 84562-5 Heart Rate 1: 84 bpm Height: 5'4" Respiratory Rate: 24 bpm SpO2: 94% Tempera ture: 36.8 (C) / 98.3 (F) Weight: 128 lbs 05/21/2016 Blood Pressure 1: 142/80 Code: 8480-6 BMI: 21.6 Code: 98821-4 Heart Rate 1: 104 bpm Height: 5'4" Respiratory Rate: 22 bpm SpO2: 93% Tempera ture: 36.0 (C) / 96.8 (F) Weight: 126 lbs 03/25/2016 Blood Pressure 1: 126/62 Code: 8480-6 Heart Rate 1: 88 bpm Respiratory Rate: 20 bpm SpO2: 92% Temperature: 36.8 (C) / 98.3 (F) We ight: 130 lbs 01/23/2016 Blood Pressure 1: 146/82 Code: 8480-6 BMI: 24.1 Code: 00657-2 Heart Rate 1: 92 bpm Height: 5'3" Respiratory Rate: 22 bpm Temperature: 37 .1 (C) / 98.8 (F) Weight: 136 lbs 12/26/2015 Blood Pressure 1: 142/78 Code: 8480-6 BMI: 24.6 Code: 60601-6 Heart Rate 1: 78 bpm Height: 5'3" Respiratory Rate: 20 bpm Temperature: 36 .7 (C) / 98.1 (F) Weight: 139 lbs 12/03/2015 Blood Pressure 1: 126/60 Code: 8480-6 BMI: 24.6 Code: 40069-9 Heart Rate 1: 100 bpm Height: 5'3" Respiratory Rate: 28 bpm Temperature: 37 .6 (C) / 99.6 (F) Weight: 139 lbs 09/10/2015 Blood Pressure 1: 124/64 Code: 8480-6 BMI: 23.7 Code: 25707-2 Heart Rate 1: 88 bpm Height: 5'3" Respiratory Rate: 24 bpm SpO2: 95% Tempera ture: 36.4 (C) / 97.6 (F) Weight: 134 lbs 08/06/2015 Blood Pressure 1: 114/76 Code: 8480-6 BMI: 23.2 Code: 87699-2 Heart Rate 1: 88 bpm Height: 5'3" Respiratory Rate: 22 bpm Temperature: 36 .6 (C) / 97.9 (F) Weight: 131 lbs 07/18/2015 Blood Pressure 1: 144/78 Code: 8480-6 BMI: 23.7 Code: 91923-4 Heart Rate 1: 84 bpm Height: 5'3" Respiratory Rate: 20 bpm Temperature: 37 .2 (C) / 99.0 (F) Weight: 134 lbs 04/10/2015 Blood Pressure 1: 110/64 Code: 8480-6 Heart Rate 1: 80 bpm Height: Respiratory Rate: 20 bpm Temperature: 37.1 (C) / 98.8 (F) Weight: 03/05/2015 Blood Pressure 1: 136/80 Code: 8480-6 BMI: 23.9 Code: 83990-6 Heart Rate 1: 76 bpm Height: 5'3" Respiratory Rate: 24 bpm Temperature: 37 .0 (C) / 98.6 (F) Weight: 135 lbs 01/30/2015 Blood Pressure 1: 142/80 Code: 8480-6 BMI: 23.0 Code: 15167-8 Heart Rate 1: 96 bpm Height: 5'3" Respiratory Rate: 22 bpm Temperature: 36 .2 (C) / 97.2 (F) Weight: 130 lbs 01/02/2015 Blood Pressure 1: 124/70 Code: 8480-6 BMI: 23.4 Code: 64027-4 Heart Rate 1: 84 bpm Height: 5'3" Respiratory Rate: 24 bpm SpO2: 95% Tempera ture: 36.9 (C) / 98.5 (F) Weight: 132 lbs 10/03/2014 Blood Pressure 1: 106/68 Code: 8480-6 BMI: 22.5 Code: 81381-4 Heart Rate 1: 88 bpm Height: 5'3" Respiratory Rate: 24 bpm Temperature: 37 .0 (C) / 98.6 (F) Weight: 127 lbs 08/27/2014 Blood Pressure 1: 124/68 Code: 8480-6 BMI: 21.1 Code: 92067-2 Heart Rate 1: 88 bpm Height: 5'3" [...] 1: 120/70 Code: 8480-6 BMI: 19.2 Code: 31419-3 Heart Rate 1: 70 bpm Height: 5'4" Respiratory Rate: 20 bpm Temperature: 36 .9 (C) / 98.4 (F) Weight: 112 lbs 06/28/2013 Blood Pressure 1: 102/68 Code: 8480-6 BMI: 19.6 Code: 37003-0 Heart Rate 1: 76 bpm Height: 5'4" Respiratory Rate: 20 bpm Temperature: 36 .8 (C) / 98.2 (F) Weight: 114 lbs 05/31/2013 Blood Pressure 1: 106/70 Code: 8480-6 BMI: 18.9 Code: 03158-2 Heart Rate 1: 100 bpm Height: 5'4" Respiratory Rate: 20 bpm Temperature: 36 .4 (C) / 97.6 (F) Weight: 110 lbs 05/03/2013 Blood Pressure 1: 126/70 Code: 8480-6 BMI: 19.1 Code: 19427-5 Heart Rate 1: 88 bpm Height: 5'4" Respiratory Rate: 20 bpm Temperature: 37 .1 (C) / 98.8 (F) Weight: 111 lbs 04/25/2013 Blood Pressure 1: 114/68 Code: 8480-6 BMI: 19.4 Code: 95603-6 Heart Rate 1: 92 bpm Height: 5'4" Respiratory Rate: 24 bpm SpO2: 96% Tempera ture: 37.7 (C) / 99.8 (F) Weight: 113 lbs 03/08/2013 Blood Pressure 1: 94/68 Code: 8480-6 BMI: 21.3 C ode: 42961-2 Heart Rate 1: 88 bpm Height: 5'4" Respiratory Rate: 24 bpm Temperature: 37 .0 (C) / 98.6 (F) Weight: 124 lbs 02/07/2013 Blood Pressure 1: 106/64 Code: 8480-6 BMI: 21.8 Code: 55763-5 Heart Rate 1: 84 bpm Height: 5'4" Respiratory Rate: 22 bpm Temperature: 36 .8 (C) / 98.2 (F) Weight: 127 lbs 01/10/2013 Blood Pressure 1: 122/68 Code: 8480-6 BMI: 21.6 Code: 79022-4 Heart Rate 1: 94 bpm Height: 5'4" SpO2: 94% Temperature: 36.7 (C) / 98.1 (F) Weight: 126 lbs 09/28/2012 Blood Pressure 1: 124/78 Code: 8480-6 BMI: 24.9 Code: 16124-5 Heart Rate 1: 92 bpm Height: 5'4" Respiratory Rate: 20 bpm Temperature: 36 .7 (C) / 98.1 (F) Weight: 145 lbs 06/28/2012 Blood Pressure 1: 134/80 Code: 8480-6 BMI: 24.9 Code: 07019-8 Heart Rate 1: 76 bpm Height: 5'4" Respiratory Rate: 20 bpm Temperature: 36 .8 (C) / 98.2 (F) Weight: 145 lbs 05/03/2012 Blood Pressure 1: 108/62 Code: 8480-6 BMI: 25.6 Code: 73284-2 Heart Rate 1: 88 bpm Height: 5'4" Temperature: 36.2 (C) / 97.2 (F) Weight: 149 lbs 03/01/2012 Blood Pressure 1: 124/66 Code: 8480-6 BMI: 25.1 Code: 34905-0 Heart Rate 1: 76 bpm Height: 5'4" Respiratory Rate: 20 bpm Temperature: 36 .6 (C) / 97.9 (F) Weight: 146 lbs 01/26/2012 Blood Pressure 1: 118/82 Code: 8480-6 BMI: 25.1 Code: 17343-5 Heart Rate 1: 74 bpm Height: 5'4" Temperature: 36.8 (C) / 98.2 (F) Weight: 146 lbs 11/03/2011 Blood Pressure 1: 126/80 Code: 8480-6 BMI: 27.3 Code: 04625-0 Heart Rate 1: 72 bpm Height: 5'4" [...] up 05/31/2013 sores 05/03/2013 follow up 04/25/2013 [facility]up pain, generalized 03/08/2013 follow up 02/07/2013 1mo fwup follow up 01/10/2013 follow up 09/28/2012 2mo fwup follow up 06/28/2012 2mo fwup follow up 05/03/2012 follow up 03/01/2012 1mo fwup diabetes mellitus 01/26/2012 follow up 11/03/2011 3mo fwup follow up 08/10/2011 1mo fwup cough 07/15/2011 cough 03/19/2011 follow up 01/28/2011 1mo fwup follow up 12/17/2010 [facility] fwup follow up 2010 2wk fwup arthralgia(s) 10/02/2010 neck pain 09/24/2010 right sided, feels k not in thigh follow up 09/02/2010 2wk fwup back pain 07/14/2010 had epidural beginni ng of Jun, seems to be wearing off the last 3 days follow up 05/07/2010 depression 04/08/2010 jeremy not helping, wants to retry prozac Encounters Encounter Performer Location Codes Date ([id number]) OFFICE/OUTPATIENT VISIT EST Diagnosis: Chronic pain syndrome[ICD10: G89.4] Diagnosis: Localized edema[ICD10: R60.0] Diagnosis: Chronic obstructive pulmonary disease, unspecified[ICD10: J44.9] Diagnosis: Other fatigue[ICD10: R53.83] Diagnosis: Muscle weakness (generalized)[ICD10: M62.81] Diagnosis: Spinal stenosis, lumbar region with neurogenic claudication[ICD10: M48.062] Vika RENTERIA Bantr [facility] CPT-4: 81234 11/29/2019 ([id number]) OFFICE/OUTPATIENT VISIT EST Diagnosis: Chronic pain syndrome[ICD10: G89.4] Diagnosis: Lumbar degenerative disc disease[ICD10: M51.36] Diagnosis: Muscle spasm[ICD10: M62.838] Diagnosis: Spinal stenosis, lumbar region with neurogenic claudication[ICD10: M48.062] Diagnosis: Spondylosis without myelopathy or radiculopathy, 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] Vika RENTERIA Bantr [facility] CPT-4: 01140 10/30/2019 ([id number]) OFFICE/OUTPATIENT VISIT EST Diagnosis: Chronic pain syndrome[ICD10: G89.4] Vika RENTERIA Bantr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
--- OUTSIDE RECORDS SUMMARY | 2020-04-24 23:12 | XMS REPORT | CCD ---
Author Author Yana Renteria D.O. Organization [facility] Address [address] [place] [address] Phone Care Team Providers Care Wick Tender Name Role Phone Vika Renteria D.O., PP Unavailable CCM Unavailable Summary Purpose Interface Exchange Insurance Providers Payer name Policy type / Coverage type Covered green party ID Effective Begin Date Effective End Date [employer] [facility] [place] Medicaid [id number] 2018 U nknown Family History Family History data not found Social History Social History Element Codes Description Effective Dates Marital status Unknown 06/28/[address]: [id number] Currently smokes tobacco 05/2013 Allergies, Adverse Reactions, [...] Fill Instructions metformin 500 mg tablet RxNorm: 234395 1 Tablet(s) Oral QD 01/04/20 20 04/02/2020 Active MS Contin 200 mg tablet,extended release RxNorm: 013859 1 Tablet(s) Oral two times a day 01/02/2020 01/31/2020 Active Pulmicort 1 mg/2 mL suspension for nebulization RxNorm: 6168 19 USE ONE VIAL VIA NEBULIZER BY MOUTH TWICE A DAY 12/21/2019 No Stop Date Active furosemide 40 mg tablet RxNorm: 993566 TAKE ONE TABLET BY MOUTH EVERY MORNING NEEDED 12/20/2019 No Stop Date Active levothyroxine 25 mcg tablet RxNorm: 173285 TAKE ONE TAB LET BY MOUTH EVERY MORNING 12/20/2019 No Stop Date Active MS Contin 200 mg tablet,extended release RxNorm: 077657 1 Tablet(s) Oral two times a day 12/05/2019 01/01/2020 Inactive Medrol (Aníbal) 4 mg tablets in a dose pack RxNorm: 644675 6 Tablet(s) Oral QD --then as directed 11/30/2019 12/05/2019 Inactive MS Contin 200 mg tablet,extended release RxNorm: 788105 1 Tablet(s) Oral two times a day 11/29/2019 12/04/2019 Inactive cyclobenzaprine 10 mg tablet RxNorm: 397705 TAKE ONE TA BLET BY MOUTH THREE TIMES A DAY NEEDED 11/21/2019 No Stop Date Active MS Contin 200 mg tablet,extended release RxNorm: 129508 1 Tablet(s) Oral two times a day replaces 100mg dose 11/03/2019 11/02/2019 Inactive MS Contin 200 mg tablet,extended release RxNorm: 820564 1 Tablet(s) Oral two times a day replaces 100mg dose 11/03/2019 11/29/2019 Inactive ferrous sulfate 325 mg (65 mg iron) tablet RxNorm: 465698 1 Tab let(s) Oral QD 10/30/2019 No Stop Date Active MS Contin 100 mg tablet,extended release RxNorm: 874630 1 Table t(s) Oral QD 10/30/2019 10/29/2019 Inactive MS Contin 100 mg tablet,extended release RxNorm: 937698 1 Table t(s) Oral QD 10/30/2019 11/02/2019 Inactive Relistor 150 mg tablet RxNorm: 9626467 TAKE THREE TABLETS BY BENOIT TH DAILY 10/25/2019 No Stop Date Active pantoprazole 40 mg tablet,delayed release RxNorm: 391155 1 Tabl et(s) Oral QD 10/25/2019 No Stop Date Active Minipress 2 mg capsule RxNorm: 936149 1 Capsule(s) Oral QAM and 3 at bedtime 10/25/2019 No Stop Date Active Lancets, Super Thin RxNorm: 1 Unit Dose Miscellaneous QD 9 11/27/2020 Active Cymbalta 60 mg capsule,delayed release RxNorm: 824048 1 Capsule (s) Oral QAM 10/25/2019 No Stop Date Active Cymbalta 30 mg capsule,delayed release RxNorm: 833131 1 Capsule (s) Oral QAM 10/25/2019 No Stop Date Active oxycodone 15 mg tablet RxNorm: 0562336 1 Tablet(s) Oral four times a day as needed for pain 10/25/2019 11/28/2019 Inactive metformin 500 mg tablet RxNorm: 571710 1 Tablet(s) Oral QD 10/25/20 19 01/03/2020 Inactive levothyroxine 25 mcg tablet RxNorm: 317852 1 Tablet(s) Oral QAM 02/201912/19/2019 Inactive levothyroxine 25 mcg tablet RxNorm: 870481 1 Tablet(s) Oral QAM 02/201910/24/2019 Inactive MS Contin 100 mg tablet,extended release RxNorm: 565143 1 Tablet(s) Oral two times a day replaces fentanyl 10/25/2019 10/25/2019 Inactive Premarin 0.45 mg tablet RxNorm: 024186 TAKE ONE TABLET BY MOUTH DAILY 10/24/2019 No Stop Date Active Duragesic 100 mcg/hr transdermal patch RxNorm: 442841 2 Application TD Q48H for pain 10/18/2019 10/24/2019 Inactive gabapentin 300 mg capsule RxNorm: 839826 TAKE ONE CAPSULE BY MO UTH TWICE A DAY 10/16/2019 No Stop Date Active cyclobenzaprine 10 mg tablet RxNorm: 849306 TAKE ONE TA BLET BY MOUTH THREE TIMES A DAY NEEDED 09/27/2019 11/20/2019 Inactive ProAir HFA 90 mcg/actuation aerosol inhaler RxNorm: 505196 INHALE ONE PUFF BY MOUTH EVERY 4 HOURS FOR WHEEZING OR FOR SHORTNESS OF BREATH 09/25/2019 No Stop Date Active Relistor 150 mg tablet RxNorm: 8022541 TAKE THREE TABLETS BY BENOIT TH DAILY 09/25/2019 10/24/2019 Inactive furosemide 40 mg tablet RxNorm: 454678 1 Tablet(s) Oral QAM as needed 09/25/2019 09/25/2019 Inactive oxycodone 15 mg tablet RxNorm: 2868844 1 Tablet(s) PO QID as nee ded for pain 09/21/2019 10/24/2019 Inactive Duragesic 100 mcg/hr transdermal patch RxNorm: 604784 2 Application TD Q48H for pain 09/19/2019 10/17/2019 Inactive Daliresp 500 mcg tablet RxNorm: 9296095 1 Tablet(s) Oral QD 019 03/08/2020 Active potassium chloride ER 20 mEq tablet,extended release RxNorm: 095869 TAKE ONE TABLET BY MOUTH DAILY 07/25/2019 01/20/2020 Active Relistor 150 mg tablet RxNorm: 9942031 TAKE THREE TABLETS BY BENOIT TH DAILY 07/25/2019 07/30/2019 Inactive cyclobenzaprine 10 mg tablet RxNorm: 423021 TAKE ONE TA BLET BY MOUTH THREE TIMES A DAY NEEDED 07/25/2019 09/22/2019 Inactive fluoxetine 40 mg capsule RxNorm: 113091 TAKE ONE CAPSULE BY BENOIT TH EVERY MORNING 07/11/2019 10/24/2019 Inactive Medrol (Aníbal) 4 mg tablets in a dose pack RxNorm: 106617 6 Tablet(s) PO QD --then as directed 07/10/2019 07/15/2019 Inactive omeprazole 40 mg capsule,delayed release RxNorm: 149801 1 Capsule(s) PO QD for stomach TAKE ONE CAPSULE BY MOUTH DAILY 07/10/2019 10/24/2019 Inactive Augmentin 875 mg-125 mg tablet RxNorm: 874951 1 Tablet(s) PO BID 07/16/2019 Inactive Trulicity 0.75 mg/0.5 mL subcutaneous pen injector RxNorm: 1 560991 0.75 Milliliter(s) SQ weekly 07/05/2019 10/24/2019 Inactive Compazine 10 mg tablet RxNorm: 847759 TAKE ONE TABLET B Y MOUTH FOUR TIMES A DAY NEEDED FOR NAUSEA 06/20/2019 07/19/2019 Inactive ProAir HFA 90 mcg/actuation aerosol inhaler RxNorm: 651622 INHALE ONE PUFF BY MOUTH EVERY 4 HOURS FOR WHEEZING OR FOR SHORTNESS OF BREATH 06/20/2019 06/23/2019 Inactive Daliresp 500 mcg tablet RxNorm: 8567061 TAKE ONE TABLET BY MOUTH DAILY 06/12/2019 09/10/2019 Inactive iewgpmnh-cfvqqjcel-feqvydzvd 3.5 mg/mL-10,000 unit/mL- 1 % ear solution RxNorm: 100662 4 Drop(s) otic (ear) TID to left ear 06/05/2019 10/24/2019 Inac tive furosemide 40 mg tablet RxNorm: 217600 TAKE ONE TABLET BY MOUTH EVERY MORNING 05/26/2019 07/09/2019 Inactive Duragesic 100 mcg/hr transdermal patch RxNorm: 254281 2 Application TD Q48H for pain 05/16/2019 06/14/2019 Inactive oxycodone 15 mg tablet RxNorm: 2432885 1 Tablet(s) PO QID as nee ded for pain 05/10/2019 09/20/2019 Inactive doxycycline hyclate 100 mg capsule RxNorm: 2038250 1 Capsule(s) PO BID 05/03/2019 05/12/2019 Inactive prednisone 20 mg tablet RxNorm: 712445 1 Tablet(s) PO T ID for 3 days then 1 po BID for 3 days then one daily for 3 days 05/03/2019 07/11/2019 Inactiv e Ozempic 0.25 mg or 0.5 mg (2 mg/1.5 mL) subcutaneous p en injector RxNorm: 4792922 0.5 Milligram(s) SQ QW 05/03/2019 07/09/2019 Inactive fluconazole 100 mg tablet RxNorm: 369442 1 Tablet(s) PO QD 05/03/2005/07/2019 Inactive Premarin 0.45 mg tablet RxNorm: 374268 TAKE ONE TABLET BY MOUTH DAILY 05/03/2019 10/23/2019 Inactive potassium chloride ER 20 mEq tablet,extended release RxNorm: 631911 1 Tablet(s) PO QD 04/27/2019 07/25/2019 Inactive potassium chloride ER 20 mEq tablet,extended release RxNorm: 472585 1 Tablet(s) PO QD 04/25/2019 04/26/2019 Inactive Compazine 10 mg tablet RxNorm: 689601 1 Tablet(s) PO QID as nee ded for nausea 04/25/2019 05/04/2019 Inactive ProAir HFA 90 mcg/actuation aerosol inhaler RxNorm: 888172 INHALE ONE PUFF BY MOUTH EVERY 4 HOURS FOR WHEEZING OR FOR SHORTNESS OF BREATH 04/12/2019 06/10/2019 Inactive Medrol (Aníbal) 4 mg tablets in a dose pack RxNorm: 806712 6 Tablet(s) PO QD --then as directed 04/11/2019 04/16/2019 Inactive Symbicort 160 mcg-4.5 mcg/actuation HFA aerosol inhaler RxNo rm: 2125150 2 Puff(s) INH BID 04/10/2019 10/06/2019 Inactive levothyroxine 50 mcg tablet RxNorm: 571148 1 Tablet(s) PO QD 201810/24/2019 Inactive gabapentin 300 mg capsule RxNorm: 492448 1 Capsule(s) PO BID 201810/02/2019 Inactive Symbicort 160 mcg-4.5 mcg/actuation HFA aerosol inhaler RxNo rm: 7194148 2 Puff(s) INH BID 04/06/2019 04/09/2019 Inactive oxycodone 15 mg tablet RxNorm: 1593077 1 Tablet(s) PO QID as nee ded for pain 04/05/2019 05/09/2019 Inactive levothyroxine 50 mcg tablet RxNorm: 141594 1 Tablet(s) PO QD 201804/09/2019 Inactive furosemide 40 mg tablet RxNorm: 882482 TAKE ONE TABLET BY MOUTH EVERY MORNING 03/21/2019 04/19/2019 Inactive levothyroxine 50 mcg tablet RxNorm: 527982 TAKE ONE TABLET BY M OUTH DAILY 03/21/2019 03/27/2019 Inactive Duragesic 100 mcg/hr transdermal patch RxNorm: 366166 2 Application TD Q48H for pain 03/13/2019 04/11/2019 Inactive oxycodone 15 mg tablet RxNorm: 4418854 1 Tablet(s) PO QID as nee ded for pain 03/06/2019 04/04/2019 Inactive Relistor 150 mg tablet RxNorm: 9787665 3 Tablet(s) PO QD 02/28/2019 0 05/28/2019 Inactive cyclobenzaprine 10 mg tablet RxNorm: 311918 1 Tablet(s) PO TID as needed 02/28/2019 05/28/2019 Inactive phentermine 37.5 mg tablet RxNorm: 599030 1 Tablet(s) PO QAM 201803/15/2019 Inactive Duragesic 100 mcg/hr transdermal patch RxNorm: 807190 2 Application TD Q48H for pain 02/09/2019 03/10/2019 Inactive Daliresp 500 mcg tablet RxNorm: 3511964 TAKE ONE TABLET BY MOUTH DAILY 01/31/2019 05/30/2019 Inactive Premarin 0.45 mg tablet RxNorm: 243668 1 Tablet(s) PO QD 01/31/2019 0 04/30/2019 Inactive fluoxetine 40 mg capsule RxNorm: 761347 Capsule(s) TAKE ONE CAPSULE BY MOUTH EVERY MORNING 01/31/2019 04/30/2019 Inactive levothyroxine 50 mcg tablet RxNorm: 854327 1 Tablet(s) PO QD 201804/10/2019 Inactive follow up in 3 weeks levothyroxine 50 mcg tablet RxNorm: 714355 1 Tablet(s) PO QD 201801/25/2019 Inactive follow up in 3 weeks potassium chloride ER 20 mEq tablet,extended release RxNorm: 773201 2 Tablet(s) PO BID 01/23/2019 02/14/2019 Inactive Synthroid 50 mcg tablet RxNorm: 052047 TAKE ONE TABLET BY MOUTH DAILY 01/16/2019 10/24/2019 Inactive potassium chloride ER 20 mEq tablet,extended release RxNorm: 529410 2 Tablet(s) PO BID 01/04/2019 01/22/2019 Inactive ProAir HFA 90 mcg/actuation aerosol inhaler RxNorm: 018178 INHALE ONE PUFF BY MOUTH EVERY 4 HOURS FOR WHEEZING OR SHORTNESS OF BREATH 01/04/201902/20 Inactive Request already responded to by other me ans (e.g. phone or fax) ProAir HFA 90 mcg/actuation aerosol inhaler RxNorm: 6666894 INHALE ONE PUFF BY MOUTH EVERY 4 HOURS FOR WHEEZING OR SHORTNESS OF BREATH 01/02/201912/23 Inactive gabapentin 300 mg capsule RxNorm: 023421 TAKE ONE CAPSULE BY MO UTH TWICE A DAY 12/30/2018 04/06/2019 Inactive furosemide 40 mg tablet RxNorm: 696412 1 Tablet(s) PO QAM 12/26/2018 02/23/2019 Inactive Compazine 10 mg tablet RxNorm: 899655 1 Tablet(s) PO QID as nee ded for nausea 12/07/2018 12/16/2018 Inactive metformin ER 500 mg tablet,extended release 24 hr RxNorm: 86 0975 TAKE ONE TABLET BY MOUTH DAILY 12/05/2018 01/04/2020 Inactive metolazone 2.5 mg tablet RxNorm: 883026 TAKE ONE TABLET BY MOUT H EVERY MORNING 12/05/2018 01/03/2019 Inactive Synthroid 50 mcg tablet RxNorm: 140124 1 Tablet(s) PO QD 11/25/2018 0 01/03/2019 Inactive DC any other synthroid strengths. Should be 50mcg only cyclobenzaprine 10 mg tablet RxNorm: 604546 TAKE ONE TA BLET BY MOUTH THREE TIMES A DAY NEEDED 11/09/2018 02/06/2019 Inactive metolazone 2.5 mg tablet RxNorm: 335594 1 Tablet(s) PO QAM repl aces 5mg dose 11/02/2018 12/01/2018 Inactive potassium chloride ER 20 mEq tablet,extended release RxNorm: 143348 2 Tablet(s) PO QD 2018 01/02/2019 Inactive Compazine 10 mg tablet RxNorm: 626691 1 Tablet(s) PO QID as nee ded for nausea 10/18/2018 12/07/2018 Inactive furosemide 40 mg tablet RxNorm: 470753 1 Tablet(s) PO QAM 10/12/2018 12/10/2018 Inactive ondansetron 8 mg disintegrating tablet RxNorm: 992789 1 Tablet(s) PO Q6H as needed 10/11/2018 10/17/2018 Inactive scopolamine 1 mg over 3 days transdermal patch RxNorm: 08176 2 1 Application TD behind ear. Take off after three days 10/11/2018 01/02/2019 Inactive furosemide 40 mg tablet RxNorm: 301176 1 Tablet(s) PO QAM 10/10/2018 12/26/2018 Inactive metolazone 5 mg tablet RxNorm: 471733 1 Tablet(s) PO QAM 10/06/201801/03/2018 Inactive metolazone 5 mg tablet RxNorm: 373563 1 Tablet(s) PO QAM 10/06/2018 1 12/05/2017 Inactive Xtampza ER 36 mg capsule sprinkle RxNorm: 8097869 1 Capsule(s) P O BID 10/05/2018 01/02/2019 Inactive Xtampza ER 36 mg capsule sprinkle RxNorm: 5599869 1 Capsule(s) P O BID 10/05/2018 02/12/2019 Inactive omeprazole 40 mg capsule,delayed release RxNorm: 200185 TAKE ONE CAPSULE BY MOUTH DAILY 10/03/2018 12/31/2018 Inactive Duragesic 100 mcg/hr transdermal patch RxNorm: 015391 2 Application TD Q48H for pain 09/30/2018 10/29/2018 Inactive Synthroid 50 mcg tablet RxNorm: 786077 1 Tablet(s) PO QD 09/29/2018 0 11/25/2018 Inactive DC any other synthroid strengths. Should be 50mcg only Synthroid 50 mcg tablet RxNorm: 471509 1 Tablet(s) PO QD 09/29/2018 1 11/28/2017 Inactive furosemide 40 mg tablet RxNorm: 462939 2 Tablet(s) PO Q AM for 1 week then every other day for 2 weeks 09/27/2018 10/12/2018 Inactive fluoxetine 40 mg capsule RxNorm: 560351 2 Capsule(s) PO QD 09/27/20 18 10/17/2018 Inactive potassium chloride ER 20 mEq tablet,extended release RxNorm: 477532 2 Tablet(s) PO QD for 1 week then every other day for 2 weeks 09/27/2018 2018 Inactive ProAir HFA 90 mcg/actuation aerosol inhaler RxNorm: 4400954 INHALE ONE PUFF BY MOUTH EVERY 4 HOURS FOR WHEEZING OR SHORTNESS OF BREATH 09/26/201811/23 Inactive Synthroid 75 mcg tablet RxNorm: 017270 1 Tablet(s) PO QD 09/09/2018 1 Inactive Synthroid 75 mcg tablet RxNorm: 151128 1 Tablet(s) PO QD 09/09/2018 1 11/28/2017 Inactive furosemide 40 mg tablet RxNorm: 510557 1 Tablet(s) PO QD 09/06/2018 1 Inactive potassium chloride ER 20 mEq tablet,extended release RxNorm: 502196 1 Tablet(s) PO QD 09/06/2018 09/19/2018 Inactive Duragesic 100 mcg/hr transdermal patch RxNorm: 728007 2 Application TD Q48H for pain 08/30/2018 09/28/2018 Inactive gabapentin 300 mg capsule RxNorm: 209656 TAKE ONE CAPSULE BY [facility] TWICE A DAY 08/23/2018 12/20/2018 Inactive Daliresp 500 mcg tablet RxNorm: 2856698 TAKE ONE TABLET BY MOUTH DAILY 08/23/2018 01/19/2019 Inactive Pulmicort 1 mg/2 mL suspension for nebulization RxNorm: 6168 19 USE ONE VIAL VIA NEBULIZER BY MOUTH TWICE A DAY 08/23/2018 07/11/2019 Inactive Synthroid 88 mcg tablet RxNorm: 749756 1 Tablet(s) PO QD 08/19/2018 Inactive Medrol (Aníbal) 4 mg tablets in a dose pack RxNorm: 362558 Tablet(s) PO take as directed 08/16/2018 09/05/2018 Inactive Relistor 150 mg tablet RxNorm: 6761811 3 Tablet(s) PO QD 08/16/2018 1 Inactive Zithromax Z-Aníbal 250 mg tablet RxNorm: 806673 Tablet(s) PO take as directed 08/16/2018 09/05/2018 Inactive cyclobenzaprine 10 mg tablet RxNorm: 428288 1 Tablet(s) PO TID as needed 08/16/2018 11/08/2018 Inactive Synthroid 88 mcg tablet RxNorm: 956088 1 Tablet(s) PO Q D NEEDS UPDATED LABS BEFORE FURTHER REFILLS 08/08/2018 08/19/2018 Inactive Premarin 0.45 mg tablet RxNorm: 374192 1 Tablet(s) PO QD 08/03/2018 0 01/31/2019 Inactive fluoxetine 20 mg capsule RxNorm: 131653 TAKE ONE CAPSULE BY BENOIT TH DAILY 08/03/2018 09/26/2018 Inactive Xtampza ER 36 mg capsule sprinkle RxNorm: 2298169 1 Capsule(s) P O BID 08/03/2018 09/01/2018 Inactive metformin ER 500 mg tablet,extended release 24 hr RxNorm: 86 0975 1 Tablet(s) PO QD 08/03/2018 10/31/2018 Inactive Symbicort 160 mcg-4.5 mcg/actuation HFA aerosol inhaler RxNo rm: 2714452 2 Puff(s) INH BID 08/03/2018 01/29/2019 Inactive Duragesic 100 mcg/hr transdermal patch RxNorm: 113020 2 Application TD Q48H for pain 07/29/2018 08/27/2018 Inactive ProAir HFA 90 mcg/actuation aerosol inhaler RxNorm: 002802 INHALE TWO PUFFS BY MOUTH EVERY 4 HOURS FOR WHEEZING OR SHORTNESS OF BREATH 07/27/201802/2018 Inactive Relistor 150 mg tablet RxNorm: 9219784 3 Tablet(s) PO QD 07/20/2018 0 08/15/2018 Inactive metformin ER 500 mg tablet,extended release 24 hr RxNorm: 86 0975 TAKE ONE TABLET BY MOUTH DAILY 07/08/2018 08/02/2018 Inactive fluoxetine 40 mg capsule RxNorm: 158418 TAKE ONE CAPSULE BY BENOIT TH EVERY MORNING 07/08/2018 10/05/2018 Inactive Xtampza ER 18 mg capsule sprinkle RxNorm: 2101201 1 Capsule(s) P O BID 07/08/2018 08/02/2018 Inactive Relistor 150 mg tablet RxNorm: 3571530 3 Tablet(s) PO QD 07/08/2018 0 07/12/2018 Inactive Synthroid 88 mcg tablet RxNorm: 606771 1 Tablet(s) PO Q D NEEDS UPDATED LABS BEFORE FURTHER REFILLS 06/23/2018 07/07/2018 Inactive fluoxetine 40 mg capsule RxNorm: 446314 TAKE ONE CAPSULE BY BENOIT TH EVERY MORNING 06/15/2018 09/26/2018 Inactive orphenadrine citrate ER 100 mg tablet,extended release RxNor m: 603780 TAKE ONE TABLET BY MOUTH TWICE A DAY FOR MUSCLE SPASM 06/15/2018 08/15/2018 Renu ctive Duragesic 100 mcg/hr transdermal patch RxNorm: 529498 2 Application TD Q48H for pain 05/30/2018 06/28/2018 Inactive ProAir HFA 90 mcg/actuation aerosol inhaler RxNorm: 429399 INHALE TWO PUFFS BY MOUTH EVERY 4 HOURS FOR WHEEZING OR SHORTNESS OF BREATH 05/19/201803/2018 Inactive Chantix Continuing Month Box 1 mg tablet RxNorm: 249945 TAKE ONE TABLET BY MOUTH TWICE A DAY 05/19/2018 08/15/2018 Inactive oxycodone 10 mg tablet RxNorm: 8697305 1-2 Tablet(s) PO QID as n eeded for pain 05/19/2018 07/07/2018 Inactive gabapentin 300 mg capsule RxNorm: 145227 TAKE ONE CAPSULE BY MO UTH TWICE A DAY 05/18/2018 07/16/2018 Inactive ProAir HFA 90 mcg/actuation aerosol inhaler RxNorm: 628794 INHALE TWO PUFFS BY MOUTH EVERY 4 HOURS FOR WHEEZING OR SHORTNESS OF BREATH 05/04/201804/23 Inactive Augmentin 500 mg-125 mg tablet RxNorm: 724172 1 Tablet(s) PO BID 05/03/2018 Inactive oxycodone 10 mg tablet RxNorm: 8170556 1-2 Tablet(s) PO QID as n eeded for pain 04/21/2018 05/18/2018 Inactive Synthroid 88 mcg tablet RxNorm: 404778 1 Tablet(s) PO QD 04/15/2018 0 08/08/2018 Inactive Symbicort 160 mcg-4.5 mcg/actuation HFA aerosol inhaler RxNo rm: 6733133 2 Puff(s) INH BID 04/15/2018 04/10/2019 Inactive Premarin 0.45 mg tablet RxNorm: 004753 1 Tablet(s) PO QD 04/15/2018 0 08/03/2018 Inactive ProAir HFA 90 mcg/actuation aerosol inhaler RxNorm: 869232 2 Puff(s) INH Q4H prn for wheezing or shortness of breath 04/15/2018 05/03/2018 Inactive metformin ER 500 mg tablet,extended release 24 hr RxNorm: 86 0975 1 Tablet(s) PO QD 04/11/2018 07/07/2018 Inactive omeprazole 40 mg capsule,delayed release RxNorm: 770540 TAKE ONE CAPSULE BY MOUTH DAILY 04/10/2018 06/08/2018 Inactive Synthroid 88 mcg tablet RxNorm: 847440 1 Tablet(s) PO QD 04/04/2018 0 04/14/2018 Inactive Synthroid 88 mcg tablet RxNorm: 768474 1 Tablet(s) PO QD 04/04/2018 0 04/03/2018 Inactive orphenadrine citrate ER 100 mg tablet,extended release RxNor m: 887145 1 Tablet(s) PO BID for muscle spasm 04/04/2018 05/03/2018 Inactive metformin ER 500 mg tablet,extended release 24 hr RxNorm: 86 0975 1 Tablet(s) PO QD NEEDS UPDATED LABS 03/31/2018 04/11/2018 Inactive doxycycline hyclate 100 mg capsule RxNorm: 9283889 1 Capsule(s) PO BID 03/31/2018 04/09/2018 Inactive prednisone 20 mg tablet RxNorm: 324458 3 Tablet(s) PO T ID for 3 days then 1 po BID for 3 days then one daily for 3 days 03/31/2018 07/06/2018 Inactiv e Chantix Continuing Month Box 1 mg tablet RxNorm: 398858 TAKE ONE TABLET BY MOUTH TWICE A DAY 03/25/2018 03/30/2018 Inactive oxycodone 10 mg tablet RxNorm: 9856861 1-2 Tablet(s) PO QID as n eeded for pain 03/21/2018 04/20/2018 Inactive Daliresp 500 mcg tablet RxNorm: 6250620 1 Tablet(s) PO QD 03/15/2018 08/22/2018 Inactive metformin ER 500 mg tablet,extended release 24 hr RxNorm: 86 0975 1 Tablet(s) PO QD NEEDS UPDATED LABS 03/14/2018 03/31/2018 Inactive nystatin 100,000 unit/mL oral suspension RxNorm: 104928 5 Chio liter(s) PO QID 03/02/2018 03/15/2018 Inactive nystatin 100,000 unit/mL oral suspension RxNorm: 391424 5 Chio liter(s) PO QID 03/02/2018 03/01/2018 Inactive oxycodone 10 mg tablet RxNorm: 8579653 1-2 Tablet(s) PO QID as n eeded for pain 02/16/2018 03/20/2018 Inactive fluoxetine 20 mg capsule RxNorm: 740582 1 Capsule(s) PO QD 02/15/20 18 08/02/2018 Inactive metformin ER 500 mg tablet,extended release 24 hr RxNorm: 86 0975 1 Tablet(s) PO QD Needs updated labs 02/14/2018 03/14/2018 Inactive cefdinir 300 mg capsule RxNorm: 565239 1 Capsule(s) PO BID 01/27/20 18 02/04/2018 Inactive orphenadrine citrate ER 100 mg tablet,extended release RxNor m: 835738 1 Tablet(s) PO BID for muscle spasm 01/26/2018 04/04/2018 Inactive gabapentin 300 mg capsule RxNorm: 099108 1 Capsule(s) PO BID 201704/17/2018 Inactive oxycodone 10 mg tablet RxNorm: 5298775 1-2 Tablet(s) PO QID as n eeded for pain 01/17/2018 02/15/2018 Inactive Duragesic 100 mcg/hr transdermal patch RxNorm: 089454 2 Application TD Q48H for pain 01/17/2018 02/15/2018 Inactive gabapentin 300 mg capsule RxNorm: 313207 TAKE ONE CAPSULE BY MO UTH TWICE A DAY 12/20/2017 01/18/2018 Inactive fluoxetine 40 mg capsule RxNorm: 997797 TAKE ONE CAPSULE BY BENOIT TH EVERY MORNING 12/15/2017 03/14/2018 Inactive OneTouch Ultra Test strips RxNorm: TEST DAILY 11/04/2017 02/01/2018 Inactive gabapentin 300 mg capsule RxNorm: 374495 1 Capsule(s) P O TID replaces BID dosing 10/26/2017 02/22/2018 Inactive oxycodone 10 mg tablet RxNorm: 6900439 1-2 Tablet(s) PO QID as n eeded for pain 10/18/2017 01/16/2018 Inactive Duragesic 100 mcg/hr transdermal patch RxNorm: 202802 2 Application TD Q48H for pain 10/18/2017 11/16/2017 Inactive gabapentin 300 mg capsule RxNorm: 267667 1 Capsule(s) PO BID 201610/25/2017 Inactive Abilify 5 mg tablet RxNorm: 964252 1 Tablet(s) PO QAM 09/23/201702/2017 Inactive gabapentin 300 mg capsule RxNorm: 924277 1 Capsule(s) PO BID 201610/17/2017 Inactive oxycodone 10 mg tablet RxNorm: 1198282 1-2 Tablet(s) PO QID as n eeded for pain 09/15/2017 10/17/2017 Inactive Duragesic 100 mcg/hr transdermal patch RxNorm: 513010 2 Application TD Q48H for pain 09/15/2017 10/14/2017 Inactive Duragesic 100 mcg/hr transdermal patch RxNorm: 170298 2 Application TD Q48H for pain 09/15/2017 10/24/2019 Inactive oxycodone 10 mg tablet RxNorm: 4603027 1-2 Tablet(s) PO QID as n eeded for pain 09/15/2017 08/15/2018 Inactive Daliresp 500 mcg tablet RxNorm: 3519418 1 Tablet(s) PO QD 09/06/2017 03/15/2018 Inactive Ventolin HFA 90 mcg/actuation aerosol inhaler RxNorm: 541373 2 Puff(s) INH Q4H as needed 09/02/2017 05/19/2018 Inactive oxycodone 10 mg tablet RxNorm: 9317811 1-2 Tablet(s) PO QID as n eeded for pain 08/17/2017 09/14/2017 Inactive Duragesic 100 mcg/hr transdermal patch RxNorm: 514291 2 Application TD Q48H for pain 08/17/2017 09/14/2017 Inactive fluoxetine 40 mg capsule RxNorm: 389506 Capsule(s) TAKE ONE CAPSULE BY MOUTH EVERY MORNING 08/17/2017 12/14/2017 Inactive Pulmicort 1 mg/2 mL suspension for nebulization RxNorm: 6168 19 1 Unit Dose INH BID Dx: COPD (J44.9) 08/16/2017 08/22/2018 Inactive gabapentin 300 mg capsule RxNorm: 570491 1 Capsule(s) PO QHS 201610/18/2017 Inactive fluoxetine 20 mg capsule RxNorm: 220558 1 Capsule(s) PO QD 08/12/20 17 02/14/2018 Inactive Abilify 2 mg tablet RxNorm: 557374 1 Tablet(s) PO QD TA KE ONE TABLET BY MOUTH DAILY 08/12/2017 10/25/2017 Inactive metformin ER 500 mg tablet,extended release 24 hr RxNorm: 86 0975 1 Tablet(s) PO QD 08/10/2017 02/14/2018 Inactive Synthroid 112 mcg tablet RxNorm: 684052 1 Tablet(s) PO QD 08/10/2017 04/15/2018 Inactive oxycodone 10 mg tablet RxNorm: 8007812 1-2 Tablet(s) PO QID as n eeded for pain 07/19/2017 08/16/2017 Inactive Duragesic 100 mcg/hr transdermal patch RxNorm: 686950 2 Application TD Q48H for pain 07/19/2017 08/16/2017 Inactive Ventolin HFA 90 mcg/actuation aerosol inhaler RxNorm: 046383 2 Puff(s) INH Q4H as needed 07/12/2017 09/02/2017 Inactive Abilify 2 mg tablet RxNorm: 997853 1 Tablet(s) PO QD TA KE ONE TABLET BY MOUTH DAILY 07/06/2017 08/11/2017 Inactive gabapentin 800 mg tablet RxNorm: 012655 1 Tablet(s) PO TID 06/22/20 17 07/05/2017 Inactive Chantix Starting Month Box 0.5 mg (11)-1 mg (42) table ts in dose pack RxNorm: 260359 TAKE BY MOUTH INSTRUCTED - PER PACKAGE INSTRUCTIONS 06/0707/04/2017 Inactive Ventolin HFA 90 mcg/actuation aerosol inhaler RxNorm: 808822 2 Puff(s) INH Q4H as needed 05/26/2017 07/12/2017 Inactive Duragesic 100 mcg/hr transdermal patch RxNorm: 181375 2 Application TD Q48H for pain 05/19/2017 06/17/2017 Inactive oxycodone 10 mg tablet RxNorm: 6739104 1-2 Tablet(s) PO QID as n eeded for pain 05/19/2017 07/18/2017 Inactive Abilify 2 mg tablet RxNorm: 614732 TAKE ONE TABLET BY MOUTH DAILY 0 05/10/2017 07/05/2017 Inactive Synthroid 112 mcg tablet RxNorm: 725920 1 Tablet(s) PO QD 05/06/2017 08/10/2017 Inactive metformin ER 500 mg tablet,extended release 24 hr RxNorm: 86 0975 1 Tablet(s) PO QD 05/06/2017 08/10/2017 Inactive Topamax 100 mg tablet RxNorm: 980095 1 Tablet(s) PO QHS 05/06/2017 Inactive Premarin 0.45 mg tablet RxNorm: 562202 1 Tablet(s) PO QD 05/06/2017 0 04/15/2018 Inactive orphenadrine citrate ER 100 mg tablet,extended release RxNor m: 249510 1 Tablet(s) PO TID for muscle spasm--replaces methocarbamol 04/29/2017 Inactive oxycodone 10 mg tablet RxNorm: 8849857 1-2 Tablet(s) PO QID as n eeded for pain 04/21/2017 05/18/2017 Inactive Duragesic 100 mcg/hr transdermal patch RxNorm: 078994 2 Application TD Q48H for pain 04/21/2017 05/18/2017 Inactive fluoxetine 40 mg capsule RxNorm: 201419 Capsule(s) TAKE ONE CAPSULE BY MOUTH EVERY MORNING 04/20/2017 08/17/2017 Inactive Ventolin HFA 90 mcg/actuation aerosol inhaler RxNorm: 741022 2 Puff(s) INH Q4H as needed 04/05/2017 05/26/2017 Inactive Symbicort 160 mcg-4.5 mcg/actuation HFA aerosol inhaler RxNo rm: 3574894 2 Puff(s) INH BID 03/30/2017 04/15/2018 Inactive Spiriva with HandiHaler 18 mcg and inhalation capsules RxNor m: 949504 1 Capsule(s) INH QD USING HANDIHALER 03/30/2017 02/12/2019 Inactive Duragesic 100 mcg/hr transdermal patch RxNorm: 101369 2 Application TD Q48H for pain 03/18/2017 04/16/2017 Inactive oxycodone 10 mg tablet RxNorm: 0239882 1-2 Tablet(s) PO QID as n eeded for pain 03/18/2017 04/20/2017 Inactive metformin ER 500 mg tablet,extended release 24 hr RxNorm: 86 0975 Tablet(s) TAKE ONE TABLET BY MOUTH DAILY 03/01/2017 05/06/2017 Inactive Premarin 0.45 mg tablet RxNorm: 416643 Tablet(s) TAKE ONE TABLE T BY MOUTH DAILY 03/01/2017 05/06/2017 Inactive Synthroid 112 mcg tablet RxNorm: 528119 Tablet(s) TAKE ONE TABLET BY MOUTH DAILY 03/01/2017 05/06/2017 Inactive Daliresp 500 mcg tablet RxNorm: 5987963 1 Tablet(s) PO QD 03/01/2017 09/06/2017 Inactive 16.2 mg-0.1037 mg-0.0194 mg tablet RxNorm: 3127367 Tablet(s) PO PRN for gas and cramping 02/23/2017 04/28/2017 Inactive TAKE TWO TABLET S BY MOUTH THREE TIMES A DAY NEEDED FOR GAS AND CRAMPING gabapentin 800 mg tablet RxNorm: 364106 1 Tablet(s) PO TID repl aces 600mg 02/23/2017 04/28/2017 Inactive Duragesic 100 mcg/hr transdermal patch RxNorm: 076044 2 Application TD Q48H for pain 02/17/2017 03/17/2017 Inactive fluoxetine 20 mg capsule RxNorm: 363229 1 Capsule(s) PO QD 02/18/20 17 08/12/2017 Inactive oxycodone 20 mg tablet RxNorm: 8721990 1 Tablet(s) PO QID as nee ded for pain 02/17/2017 03/17/2017 Inactive Ventolin HFA 90 mcg/actuation aerosol inhaler RxNorm: 985565 INHALE TWO PUFFS BY MOUTH EVERY 4 HOURS NEEDED 02/15/2017 04/05/2017 Inactive Silvadene 1 % topical cream RxNorm: 947125 1 Application TOP BI D to burn area 02/01/2017 09/22/2017 Inactive Topamax 100 mg tablet RxNorm: 166210 TAKE ONE TABLET BY MOUTH EVERY NIGHT AT BEDTIME 01/29/2017 05/06/2017 Inactive Chantix Starting Month Box 0.5 mg (11)-1 mg (42) table ts in dose pack RxNorm: 426053 Tablet(s) PO as directed 01/29/2017 06/01/2017 Inactive Abilify 2 mg tablet RxNorm: 713358 TAKE ONE TABLET BY MOUTH DAILY 0 01/26/2017 04/25/2017 Inactive Chantix Starting Month Box 0.5 mg (11)-1 mg (42) table ts in dose pack RxNorm: 402030 Tablet(s) PO as directed 01/20/2017 01/28/2017 Inactive gabapentin 600 mg tablet RxNorm: 494050 1 Tablet(s) PO TID 01/21/2002/22/2017 Inactive Chantix Continuing Month Box 1 mg tablet RxNorm: 567180 1 Table t(s) PO BID 12/31/2016 06/01/2017 Inactive Spiriva with HandiHaler 18 mcg and inhalation capsules RxNor m: 291877 INHALE THE ENTIRE CONTENTS OF 1 CAPSULE ONCE A DAY USING HANDIHALER 12/31/201607/2017 Inactive Synthroid 112 mcg tablet RxNorm: 647439 TAKE ONE TABLET BY MOUT H DAILY 12/30/2016 03/01/2017 Inactive metformin ER 500 mg tablet,extended release 24 hr RxNorm: 86 0975 TAKE ONE TABLET BY MOUTH DAILY 12/30/2016 03/01/2017 Inactive Premarin 0.45 mg tablet RxNorm: 109406 TAKE ONE TABLET BY MOUTH DAILY 12/30/2016 03/01/2017 Inactive omeprazole 40 mg capsule,delayed release RxNorm: 184694 TAKE ONE CAPSULE BY MOUTH DAILY 12/30/2016 01/25/2018 Inactive Ventolin HFA 90 mcg/actuation aerosol inhaler RxNorm: 159019 INHALE TWO PUFFS BY MOUTH EVERY 4 HOURS NEEDED 12/28/2016 02/13/2017 Inactive fluoxetine 40 mg capsule RxNorm: 592813 TAKE ONE CAPSULE BY BENOIT TH EVERY MORNING 12/15/2016 04/20/2017 Inactive Chantix Continuing Month Box 1 mg tablet RxNorm: 343432 TAKE ONE TABLET BY MOUTH TWICE A DAY 12/04/2016 12/31/2016 Inactive doxycycline hyclate 100 mg capsule RxNorm: 7369942 1 Capsule(s) PO BID 12/01/2016 12/07/2016 Inactive Levaquin 750 mg tablet RxNorm: 981706 1 Tablet(s) PO QD 12/01/2016 Inactive Abilify 2 mg tablet RxNorm: 373389 TAKE ONE TABLET BY MOUTH DAILY 0 11/25/2016 11/30/2016 Inactive Ventolin HFA 90 mcg/actuation aerosol inhaler RxNorm: 197335 INHALE TWO PUFFS BY MOUTH EVERY 4 HOURS NEEDED 11/02/2016 12/19/2016 Inactive Chantix Continuing Month Box 1 mg tablet RxNorm: 379988 Tablet(s) PO as directed 10/30/2016 12/03/2016 Inactive Symbicort 160 mcg-4.5 mcg/actuation HFA aerosol inhaler RxNo rm: 9782610 INHALE TWO PUFFS TWO TIMES A DAY 10/30/2016 03/30/2017 Inactive Abilify 2 mg tablet RxNorm: 156510 1 Tablet(s) PO QD 10/27/201611/24 Inactive amoxicillin 500 mg capsule RxNorm: 944501 1 Capsule(s) PO TID 10/1410/23/2016 Inactive amoxicillin 500 mg capsule RxNorm: 507687 1 Capsule(s) PO TID 10/1410/13/2016 Inactive Synthroid 112 mcg tablet RxNorm: 836915 TAKE ONE TABLET BY MOUT H DAILY 09/28/2016 12/29/2016 Inactive Topamax 100 mg tablet RxNorm: 904448 TAKE ONE TABLET BY MOUTH EVERY NIGHT AT BEDTIME 09/28/2016 01/28/2017 Inactive Premarin 0.45 mg tablet RxNorm: 486361 TAKE ONE TABLET BY MOUTH DAILY 09/28/2016 12/29/2016 Inactive metformin ER 500 mg tablet,extended release 24 hr RxNorm: 86 0975 TAKE ONE TABLET BY MOUTH DAILY 09/28/2016 12/29/2016 Inactive Ventolin HFA 90 mcg/actuation aerosol inhaler RxNorm: 053825 INHALE TWO PUFFS BY MOUTH EVERY 4 HOURS NEEDED 09/22/2016 10/23/2016 Inactive Pulmicort 1 mg/2 mL suspension for nebulization RxNorm: 6168 19 1 Unit Dose INH BID Dx: COPD (J44.9) 09/10/2016 08/16/2017 Inactive Pulmicort 1 mg/2 mL suspension for nebulization RxNorm: 6168 19 1 Unit Dose INH BID 09/10/2016 09/09/2016 Inactive Brovana 15 mcg/2 mL solution for nebulization RxNorm: 086934 1 Unit Dose INH BID Dx: COPD (J44.9) 09/10/2016 01/25/2018 Inactive Brovana 15 mcg/2 mL solution for nebulization RxNorm: 211666 1 Unit Dose INH BID 09/10/2016 09/09/2016 Inactive ipratropium-albuterol 0.5 mg-3 mg(2.5 mg base)/3 mL ne bulization soln RxNorm: 4855999 1 Unit Dose INH Q4H as needed Dx: COPD (J44.9) 09/10/2016 0 02/12/2019 Inactive orphenadrine citrate ER 100 mg tablet,extended release RxNor m: 390537 1 Tablet(s) PO BID for muscle spasm--replaces methocarbamol 09/09/2016 Inactive Chantix Continuing Month Box 1 mg tablet RxNorm: 706973 Tablet(s) PO as directed 09/09/2016 10/30/2016 Inactive orphenadrine citrate ER 100 mg tablet,extended release RxNor m: 960896 1 Tablet(s) PO BID for muscle spasm 09/09/2016 09/08/2016 Inactive Spiriva with HandiHaler 18 mcg and inhalation capsules RxNor m: 983624 INHALE THE ENTIRE CONTENTS OF 1 CAPSULE ONCE A DAY USING HANDIHALER 09/01/201605/2017 Inactive Daliresp 500 mcg tablet RxNorm: 0811166 1 Tablet(s) PO QD 08/27/2016 03/01/2017 Inactive prednisone 20 mg tablet RxNorm: 443089 3 Tablet(s) PO T ID for 3 days then 1 po BID for 3 days then one daily for 3 days 08/26/2016 04/28/2017 Inactiv e Wellbutrin XL 300 mg 24 hr tablet, extended release RxNorm: 403562 TAKE ONE TABLET BY MOUTH EVERY MORNING 07/29/2016 10/26/2016 Inactive gabapentin 600 mg tablet RxNorm: 006342 1 Tablet(s) PO BID 06/26/20 16 12/22/2016 Inactive fluoxetine 40 mg capsule RxNorm: 373120 TAKE ONE CAPSULE BY BENOIT TH EVERY MORNING 06/24/2016 11/20/2016 Inactive Duragesic 100 mcg/hr transdermal patch RxNorm: 291558 2 Application TD Q48H for pain 06/05/2016 07/04/2016 Inactive oxycodone 10 mg tablet RxNorm: 1364604 1-2 Tablet(s) PO QID as n eeded for pain 06/05/2016 03/17/2017 Inactive Belladonna-Phenobarbital 48 mg tablet,extended release RxNor m: 2 Tablet(s) PO TID 06/05/2016 01/19/2017 Inactive Premarin 0.45 mg tablet RxNorm: 980619 TAKE ONE TABLET BY MOUTH DAILY 05/27/2016 09/23/2016 Inactive Topamax 100 mg tablet RxNorm: 612108 TAKE ONE TABLET BY MOUTH EVERY NIGHT AT BEDTIME 05/27/2016 09/27/2016 Inactive Synthroid 112 mcg tablet RxNorm: 591350 TAKE ONE TABLET BY MOUT H DAILY 05/27/2016 09/23/2016 Inactive metformin ER 500 mg tablet,extended release 24 hr RxNorm: 86 0975 TAKE ONE TABLET BY MOUTH DAILY 05/27/2016 09/23/2016 Inactive Symbicort 160 mcg-4.5 mcg/actuation HFA aerosol inhaler RxNo rm: 8159260 INHALE TWO PUFFS TWO TIMES A DAY 05/27/2016 10/23/2016 Inactive Ventolin HFA 90 mcg/actuation aerosol inhaler RxNorm: 862580 INHALE TWO PUFFS BY MOUTH EVERY 4 HOURS NEEDED 05/21/2016 07/07/2016 Inactive omeprazole 40 mg capsule,delayed release RxNorm: 342778 1 Capsu le(s) PO QD 05/06/2016 08/03/2016 Inactive metformin ER 500 mg tablet,extended release 24 hr RxNorm: 86 0975 TAKE ONE TABLET BY MOUTH DAILY 04/23/2016 05/22/2016 Inactive methocarbamol 750 mg tablet RxNorm: 604551 2 Tablet(s) PO TID as needed for muscle spasm 04/23/2016 09/08/2016 Inactive Synthroid 112 mcg tablet RxNorm: 000631 TAKE ONE TABLET BY MOUT H DAILY 04/23/2016 05/22/2016 Inactive Spiriva with HandiHaler 18 mcg and inhalation capsules RxNor m: 682512 INHALE THE ENTIRE CONTENTS OF 1 CAPSULE ONCE A DAY USING HANDIHALER 04/09/201608/2016 Inactive Diflucan 100 mg tablet RxNorm: 083915 1 Tablet(s) PO QD 04/08/2016 Inactive doxycycline hyclate 100 mg capsule RxNorm: 3025563 1 Capsule(s) PO BID 04/08/2016 04/17/2016 Inactive doxycycline hyclate 100 mg capsule RxNorm: 7195322 1 Capsule(s) PO BID 04/08/2016 04/07/2016 Inactive Diflucan 100 mg tablet RxNorm: 696437 1 Tablet(s) PO QD 04/08/2016 Inactive ondansetron HCl 4 mg tablet RxNorm: 336694 1 Tablet(s) PO Q4H as needed for nausea and vomiting 04/08/2016 09/22/2017 Inactive gabapentin 600 mg tablet RxNorm: 793573 TAKE ONE TABLET BY MOUT H TWICE A DAY 03/24/2016 06/25/2016 Inactive Synthroid 112 mcg tablet RxNorm: 214047 TAKE ONE TABLET BY MOUT H DAILY 02/25/2016 04/22/2016 Inactive Levaquin 500 mg tablet RxNorm: 598657 1 Tablet(s) PO QD 01/23/2016 Inactive prednisone 20 mg tablet RxNorm: 324767 1 Tablet(s) PO T ID for 3 days then 1 po BID for 3 days then one daily for 3 days 01/23/2016 08/25/2016 Inactiv e Moxieuch Ultra Test strips RxNorm: TEST BLOOD SUGAR ONCE DAILY 250.00 01/09/2016 11/04/2017 Inactive methocarbamol 750 mg tablet RxNorm: 142493 2 Tablet(s) PO TID as needed for muscle spasm 01/09/2016 04/23/2016 Inactive lactulose 10 gram/15 mL oral solution RxNorm: 871120 [address](s) PO QD 01/09/2016 09/22/2017 Inactive TAKE 1 TABLESPOON BY MOUTH ONCE DAILY metformin ER 500 mg tablet,extended release 24 hr RxNorm: 86 0975 1 Tablet(s) PO QD 12/26/2015 04/22/2016 Inactive fluoxetine 20 mg capsule RxNorm: 169837 1 Capsule(s) PO QD 12/23/19 16 06/19/2016 Inactive Premarin 0.45 mg tablet RxNorm: 492423 TAKE ONE TABLET BY MOUTH DAILY 12/23/2015 05/20/2016 Inactive fluoxetine 40 mg capsule RxNorm: 794600 1 Capsule(s) PO QD 12/23/19 16 06/19/2016 Inactive TAKE ONE CAPSULE BY MOUTH EV JANKI MORNING azithromycin 500 mg tablet RxNorm: 045496 1 Tablet(s) PO QD 016 12/19/2015 Inactive Zofran 4 mg tablet RxNorm: 752812 1 Tablet(s) PO Q4H prn nausea /vomiting 12/13/2015 03/30/2018 Inactive azithromycin 500 mg tablet RxNorm: 602091 1 Tablet(s) PO QD 016 12/12/2015 Inactive Duragesic 100 mcg/hr transdermal patch RxNorm: 464697 2 Application TD Q48H for pain 12/09/2015 01/07/2016 Inactive oxycodone 10 mg tablet RxNorm: 3928112 1-2 Tablet(s) PO QID as n eeded for pain 12/09/2015 06/04/2016 Inactive Bactroban 2 % topical cream RxNorm: 581755 Application TOP BID 11/2208/25/2016 Inactive doxycycline hyclate 100 mg capsule RxNorm: 7061196 1 Capsule(s) PO BID 12/03/2015 12/12/2015 Inactive Topamax 100 mg tablet RxNorm: 634260 TAKE ONE TABLET BY MOUTH EVERY NIGHT AT BEDTIME 11/25/2015 05/22/2016 Inactive Symbicort 160 mcg-4.5 mcg/actuation HFA aerosol inhaler RxNo rm: 6705136 INHALE TWO PUFFS TWO TIMES A DAY 11/25/2015 05/22/2016 Inactive Synthroid 112 mcg tablet RxNorm: 146063 Tablet(s) TAKE ONE TABLET BY MOUTH DAILY 11/25/2015 02/22/2016 Inactive omeprazole 40 mg capsule,delayed release RxNorm: 545140 1 Capsu le(s) PO QD 11/12/2015 05/05/2016 Inactive oxycodone 10 mg tablet RxNorm: 1834918 1-2 Tablet(s) PO QID as n eeded for pain 11/05/2015 12/08/2015 Inactive Duragesic 100 mcg/hr transdermal patch RxNorm: 649478 2 Application TD Q48H for pain 11/05/2015 12/04/2015 Inactive omeprazole 40 mg capsule,delayed release RxNorm: 322630 1 Capsu le(s) PO QD 10/07/2015 11/11/2015 Inactive Januvia 100 mg tablet RxNorm: 937204 TAKE ONE TABLET BY MOUTH DAILY 09/11/2015 12/25/2015 Inactive Zithromax 500 mg tablet RxNorm: 889768 1 Tablet(s) PO QD 09/10/2015 1 Inactive prednisone 20 mg tablet RxNorm: 452641 1 Tablet(s) PO T ID for 3 days then 1 po BID for 3 days then one daily for 3 days 09/10/2015 08/25/2016 Inactiv e Wellbutrin XL 300 mg 24 hr tablet, extended release RxNorm: 772496 1 Tablet(s) PO QAM 09/10/2015 12/02/2015 Inactive Topamax 100 mg tablet RxNorm: 465685 TAKE ONE TABLET BY MOUTH EVERY NIGHT AT BEDTIME 09/02/2015 11/24/2015 Inactive Synthroid 112 mcg tablet RxNorm: 459136 TAKE ONE TABLET BY MOUT H DAILY 09/02/2015 11/25/2015 Inactive methocarbamol 750 mg tablet RxNorm: 160175 2 Tablet(s) PO TID as needed for muscle spasm 08/15/2015 01/09/2016 Inactive Wellbutrin XL 150 mg 24 hr tablet, extended release RxNorm: 580148 TAKE ONE TABLET BY MOUTH EVERY MORNING 08/13/2015 08/13/2015 Inactive gabapentin 600 mg tablet RxNorm: 229616 1 Tablet(s) PO BID 08/13/20 15 02/08/2016 Inactive Wellbutrin XL 300 mg 24 hr tablet, extended release RxNorm: 321339 1 Tablet(s) PO QAM 08/06/2015 09/09/2015 Inactive Wellbutrin XL 150 mg 24 hr tablet, extended release RxNorm: 521913 1 Tablet(s) PO QAM 07/18/2015 08/05/2015 Inactive prednisone 20 mg tablet RxNorm: 406842 1 Tablet(s) PO BID 07/18/2015 07/22/2015 Inactive doxycycline hyclate 100 mg tablet,delayed release RxNorm: 43 4018 1 Tablet(s) PO BID 07/18/2015 07/27/2015 Inactive pravastatin 40 mg tablet RxNorm: 459851 1 Tablet(s) PO QD NEEDS FASTING LAB 07/15/2015 07/14/2015 Inactive pravastatin 40 mg tablet RxNorm: 778367 1 Tablet(s) PO QD NEEDS FASTING LAB 07/15/2015 01/25/2018 Inactive Ventolin HFA 90 mcg/actuation aerosol inhaler RxNorm: 848169 2 Puff(s) INH Q4H 07/08/2015 07/07/2015 Inactive prn Premarin 0.45 mg tablet RxNorm: 831375 1 Tablet(s) PO QD 07/01/2015 0 12/22/2015 Inactive pravastatin 40 mg tablet RxNorm: 770777 1 Tablet(s) PO QD NEEDS FASTING LAB 06/14/2015 07/15/2015 Inactive Ventolin HFA 90 mcg/actuation aerosol inhaler RxNorm: 7666683 2 Puff(s) INH Q4H 06/06/2015 07/08/2015 Inactive prn albuterol sulfate 2.5 mg/3 mL (0.083 %) solution for n ebulization RxNorm: 124638 1 Unit Dose INH QID 05/30/2015 No Stop Date Active Duragesic 100 mcg/hr transdermal patch RxNorm: 402350 2 Application TD Q48H for pain 04/29/2015 05/28/2015 Inactive gabapentin 600 mg tablet RxNorm: 626836 1 Tablet(s) PO BID 04/11/2008/13/2015 Inactive Onglyza 5 mg tablet RxNorm: 571712 1 Tablet(s) PO QD for blood suga r 04/10/2015 04/15/2015 Inactive [Brand Copay Card: RxBIN:[id number] PCN:CRISTIANA RxGRP:[id number] ID#:[id number]] methocarbamol 750 mg tablet RxNorm: 570579 2 Tablet(s) PO TID as needed for muscle spasm 03/28/2015 08/15/2015 Inactive pravastatin 40 mg tablet RxNorm: 286242 1 Tablet(s) PO QD 03/19/2015 03/18/2015 Inactive pravastatin 40 mg tablet RxNorm: 115505 1 Tablet(s) PO QD 03/19/2015 06/14/2015 Inactive lactulose 10 gram/15 mL oral solution RxNorm: 353410 [address]s) PO QD 03/07/2015 01/09/2016 Inactive TAKE 1 TABLESPOON BY MOUTH ONCE DAILY oxycodone 20 mg tablet RxNorm: 9938635 1 Tablet(s) PO QID as nee ded for pain 03/05/2015 07/08/2015 Inactive Topamax 100 mg tablet RxNorm: 614741 1 Tablet(s) PO QHS TAKE ONE TABLET BY MOUTH AT BEDTIME 02/25/2015 02/12/2019 Inactive metformin ER 500 mg tablet,extended release 24 hr RxNorm: 86 0975 1 Tablet(s) PO QD 02/11/2015 03/04/2015 Inactive take one tablet by mouth every day Daliresp 500 mcg tablet RxNorm: 3665769 1 Tablet(s) PO QD 02/11/2015 08/09/2015 Inactive Endocet 10 mg-325 mg tablet RxNorm: 8560076 1 Tablet(s) PO Q4H as needed for pain 01/23/2015 01/23/2015 Inactive gabapentin 600 mg tablet RxNorm: 923018 1 Tablet(s) PO BID 01/23/20 15 04/11/2015 Inactive methocarbamol 750 mg tablet RxNorm: 735148 2 Tablet(s) PO TID as needed for muscle spasm 01/15/2015 02/13/2015 Inactive fluoxetine 40 mg capsule RxNorm: 443247 1 Capsule(s) PO QD 01/14/20 15 12/23/2015 Inactive TAKE ONE CAPSULE BY MOUTH EV JANKI MORNING fluoxetine 20 mg capsule RxNorm: 574499 1 Capsule(s) PO QD 01/14/20 15 12/23/2015 Inactive Premarin 0.45 mg tablet RxNorm: 293052 1 Tablet(s) PO QD 01/02/2015 0 07/01/2015 Inactive Endocet 10 mg-325 mg tablet RxNorm: 0980631 1-2 Tablet(s) PO Q4H 02/12/2019 Inactive PRN PAIN Duragesic 100 mcg/hr transdermal patch RxNorm: 982694 2 Application TD Q48H for pain 12/25/2014 01/23/2015 Inactive Topamax 100 mg tablet RxNorm: 237283 1 Tablet(s) PO QHS TAKE ONE TABLET BY MOUTH AT BEDTIME 12/25/2014 02/24/2015 Inactive Tudorza Pressair 400 mcg/actuation breath activated RxNorm: 6095571 1 BID INHALE ONE PUFF INTO LUNGS TWO TIMES A DAY 12/17/2014 05/15/2015 Inactive Endocet 10 mg-325 mg tablet RxNorm: 8214742 1-2 Tablet(s) PO Q4H 12/19/2014 Inactive PRN PAIN Duragesic 100 mcg/hr transdermal patch RxNorm: 276218 2 Application TD Q48H for pain 11/20/2014 12/24/2014 Inactive OneTouch Ultra Test strips RxNorm: TEST BLOOD SUGAR ONCE DAILY 250.00 11/16/2014 01/08/2016 Inactive omeprazole 40 mg capsule,delayed release RxNorm: 513435 1 Capsu le(s) PO QD 11/13/2014 11/12/2015 Inactive metformin ER 500 mg tablet,extended release 24 hr RxNorm: 86 0975 1 Tablet(s) PO QD 11/12/2014 02/11/2015 Inactive take one tablet by mouth every day Symbicort 160 mcg-4.5 mcg/actuation HFA aerosol inhaler RxNo rm: 1935573 2 Puff(s) INH BID 11/12/2014 03/11/2015 Inactive INHALE 2 PUFFS O RALLY TWO TIMES A DAY gabapentin 800 mg tablet RxNorm: 830860 1 Tablet(s) PO QD TAKE ONE TABLET BY MOUTH ONCE A DAY 10/22/2014 01/01/2015 Inactive Endocet 10 mg-325 mg tablet RxNorm: 5243217 1-2 Tablet(s) PO Q4H 11/15/2014 Inactive PRN PAIN Duragesic 100 mcg/hr transdermal patch RxNorm: 992728 2 Application TD Q48H for pain 10/17/2014 11/19/2014 Inactive gabapentin 800 mg tablet RxNorm: 506580 1 Tablet(s) PO QD TAKE ONE TABLET BY MOUTH ONCE A DAY 10/04/2014 10/21/2014 Inactive Premarin 0.9 mg tablet RxNorm: 206746 1 Tablet(s) PO QD TAKE ONE TABLET BY MOUTH ONCE A DAY 10/04/2014 01/01/2015 Inactive Spiriva with HandiHaler 18 mcg & inhalation capsules RxNorm: 911881 1 Capsule(s) INH QD 10/03/2014 04/30/2015 Inactive Levaquin 500 mg tablet RxNorm: 832801 1 Tablet(s) PO QD 10/03/2014 Inactive prednisone 20 mg tablet RxNorm: 622109 1 Tablet(s) PO QD 10/03/2014 1 12/09/2013 Inactive Duragesic 100 mcg/hr transdermal patch RxNorm: 488189 2 Application TD Q48H for pain 09/18/2014 10/16/2014 Inactive Endocet 10 mg-325 mg tablet RxNorm: 2399429 1-2 Tablet(s) PO Q4H 10/16/2014 Inactive PRN PAIN Synthroid 112 mcg tablet RxNorm: 552946 1 Tablet(s) QD 09/10/2014 Inactive Synthroid 112 mcg tablet RxNorm: 095047 TAKE ONE TABLET BY MOUTH ONE TIME A DAY. NEEDS LABS 09/10/2014 02/06/2015 Inactive omeprazole 40 mg capsule,delayed release RxNorm: 295948 1 Capsu le(s) PO QD 09/03/2014 11/13/2014 Inactive omeprazole 40 mg capsule,delayed release RxNorm: 986892 1 Capsu le(s) PO QD 09/03/2014 09/02/2014 Inactive Spiriva with HandiHaler 18 mcg & inhalation capsules RxNorm: 551758 1 Capsule(s) INH QD 08/27/2014 10/02/2014 Inactive gabapentin 600 mg tablet RxNorm: 264401 1 Tablet(s) PO BID 08/27/20 14 10/22/2014 Inactive Endocet 10 mg-325 mg tablet RxNorm: 8842400 1-2 Tablet(s) PO Q4H 09/17/2014 Inactive PRN PAIN fentanyl 100 mcg/hr transdermal patch RxNorm: 148531 1 Unit Dos e TD QD 08/21/2014 09/19/2014 Inactive Daliresp 500 mcg tablet RxNorm: 6593710 1 Tablet(s) PO QD 08/13/2014 02/11/2015 Inactive Synthroid 112 mcg tablet RxNorm: 397026 TAKE ONE TABLET BY MOUTH ONE TIME A DAY. NEEDS LABS 08/10/2014 09/10/2014 Inactive Endocet 10 mg-325 mg tablet RxNorm: 3222992 1-2 Tablet(s) PO Q4H 08/17/2014 Inactive PRN PAIN Duragesic 100 mcg/hr transdermal patch RxNorm: 721540 2 Application TD Q48H for pain 07/19/2014 09/17/2014 Inactive fluoxetine 40 mg capsule RxNorm: 073303 1 Capsule(s) PO QD 07/17/20 14 01/14/2015 Inactive TAKE ONE CAPSULE BY MOUTH EV JANKI MORNING fluoxetine 20 mg capsule RxNorm: 910420 1 Capsule(s) PO QD 07/17/20 14 01/14/2015 Inactive Spiriva with HandiHaler 18 mcg & inhalation capsules RxNorm: 159015 1 Capsule(s) INH QD 07/17/2014 08/26/2014 Inactive INHALE CONTENTS OF 1 CAPSULE(S) WITH HANDIHALER ONCE DAILY Zofran 4 mg tablet RxNorm: 524387 1 Tablet(s) PO Q4H prn nausea 07/25/2014 Inactive Synthroid 112 mcg tablet RxNorm: 533104 1 Tablet(s) PO QD 07/09/2014 07/09/2014 Inactive methocarbamol 750 mg tablet RxNorm: 384087 2 Tablet(s) PO TID as needed for muscle spasm 07/09/2014 09/06/2014 Inactive Synthroid 112 mcg tablet RxNorm: 492006 1 Tablet(s) PO QD - nee d labs 07/09/2014 08/07/2014 Inactive Medrol (Aníbal) 4 mg tablets in a dose pack RxNorm: 993454 6 Tablet(s) PO QD --then as directed 07/03/2014 07/08/2014 Inactive Tudorza Pressair 400 mcg/actuation breath activated RxNorm: 8818084 1 Puff(s) INH BID 07/03/2014 12/17/2014 Inactive cefdinir 300 mg capsule RxNorm: 130437 1 Capsule(s) PO BID 07/03/20 14 07/12/2014 Inactive Topamax 100 mg tablet RxNorm: 289650 Tablet(s) TAKE ONE TABLET BY MOUTH AT BEDTIME 07/02/2014 02/25/2015 Inactive Duragesic 100 mcg/hr transdermal patch RxNorm: 256823 2 Application TD Q48H for pain 06/25/2014 07/18/2014 Inactive Endocet 10 mg-325 mg tablet RxNorm: 1853512 1-2 Tablet(s) PO Q4H 07/18/2014 Inactive PRN PAIN metformin ER 500 mg tablet,extended release 24 hr RxNorm: 86 0975 1 Tablet(s) PO QD Needs labs 06/18/2014 07/01/2014 Inactive take one tablet by mouth every day Duragesic 100 mcg/hr transdermal patch RxNorm: 078483 2 Application TD Q48H for pain 05/22/2014 06/24/2014 Inactive Synthroid 112 mcg tablet RxNorm: 318201 1 Tablet(s) PO QD 05/22/2014 07/09/2014 Inactive Endocet 10 mg-325 mg tablet RxNorm: 6748131 1-2 Tablet(s) PO Q4H 06/20/2014 Inactive PRN PAIN Endocet 10 mg-325 mg tablet RxNorm: 2040838 1-2 Tablet(s) PO Q4H 05/21/2014 Inactive PRN PAIN Duragesic 100 mcg/hr transdermal patch RxNorm: 918736 2 Application TD Q48H for pain 04/25/2014 05/21/2014 Inactive Daliresp 500 mcg tablet RxNorm: 3519915 1 Tablet(s) PO QD 04/24/2014 08/13/2014 Inactive Symbicort 160 mcg-4.5 mcg/actuation HFA aerosol inhaler RxNo rm: 2013410 2 Puff(s) INH BID 04/24/2014 08/21/2014 Inactive INHALE 2 PUFFS O RALLY TWO TIMES A DAY metformin ER 500 mg tablet,extended release 24 hr RxNorm: 86 0975 1 Tablet(s) PO QD 04/24/2014 11/12/2014 Inactive TAKE ONE TABLET BY MOUTH EVERY DAY [AttnRPh:Saving Apply/Adjudicate RxGRP:LDMGRP RxBIN:[id number] RxPCN:2012 PCode:01 ID#:[id number]] Symbicort 160 mcg-4.5 mcg/actuation HFA aerosol inhaler RxNo rm: 6757206 2 Puff(s) INH BID 04/24/2014 11/12/2014 Inactive INHALE 2 PUFFS O RALLY TWO TIMES A DAY Premarin 0.9 mg tablet RxNorm: 003692 1 Tablet(s) PO QD 04/24/2014 Inactive TAKE ONE TABLET BY MOUTH EVERY DAY metformin ER 500 mg tablet,extended release 24 hr RxNorm: 86 0975 1 Tablet(s) PO QD Needs labs 04/24/2014 06/18/2014 Inactive TAKE ONE TABLET BY MOUTH EVERY DAY [AttnRPh:Saving Apply/Adjudicate RxGRP:LDMGRP RxBIN:[id number] RxPCN:2012 PCode:01 ID#:[id number]] gabapentin 800 mg tablet RxNorm: 613613 1 Tablet(s) PO QD 04/24/2014 10/04/2014 Inactive TAKE ONE TABLET BY MOUTH EVERY DAY Topamax 100 mg tablet RxNorm: 001920 1 Tablet(s) PO QHS 04/17/2014 Inactive Topamax 100 mg tablet RxNorm: 898064 TAKE ONE TABLET BY MOUTH A T BEDTIME 04/17/2014 07/01/2014 Inactive Tudorza Pressair 400 mcg/actuation breath activated RxNorm: 4780711 1 Puff(s) INH BID 04/11/2014 07/02/2014 Inactive Duragesic 100 mcg/hr transdermal patch RxNorm: 036356 2 Application TD Q48H for pain 03/27/2014 04/24/2014 Inactive Endocet 10 mg-325 mg tablet RxNorm: 5347424 1-2 Tablet(s) PO Q4H 04/24/2014 Inactive PRN PAIN Robaxin 750 mg tablet RxNorm: 061814 2 Tablet(s) PO TID as need ed for spasm 02/23/2014 03/28/2015 Inactive Duragesic 100 mcg/hr transdermal patch RxNorm: 614818 2 Application TD Q48H for pain 02/23/2014 No Stop Date Active Endocet 10 mg-325 mg tablet RxNorm: 8267010 1-2 Tablet(s) PO Q4H 03/23/2014 Inactive PRN PAIN Synthroid 112 mcg tablet RxNorm: 760412 1 Tablet(s) PO QD TAKE ONE TABLET BY MOUTH EVERY DAY 02/15/2014 05/22/2014 Inactive Zithromax 500 mg tablet RxNorm: 523070 1 Tablet(s) PO QD 01/30/2014 0 02/05/2014 Inactive Diflucan 100 mg tablet RxNorm: 967990 1 Tablet(s) PO QD 01/30/2014 Inactive prednisone 20 mg tablet RxNorm: 712327 1 Tablet(s) PO BID 01/30/2014 02/05/2014 Inactive fluoxetine 40 mg capsule RxNorm: 460069 1 Capsule(s) PO QD 01/23/20 14 07/16/2014 Inactive TAKE ONE CAPSULE BY MOUTH EV JANKI MORNING fluoxetine 40 mg capsule RxNorm: 392727 1 Capsule(s) PO QD 01/23/20 14 07/17/2014 Inactive TAKE ONE CAPSULE BY MOUTH EV JANKI MORNING cefdinir 300 mg capsule RxNorm: 964018 1 Capsule(s) PO BID 01/16/20 14 01/29/2014 Inactive Zithromax 500 mg tablet RxNorm: 785551 1 Tablet(s) PO QD 01/16/2014 0 01/22/2014 Inactive prednisone 20 mg tablet RxNorm: 217533 1 Tablet(s) PO BID 01/16/2014 01/22/2014 Inactive Spiriva with HandiHaler 18 mcg and inhalation capsules RxNor m: 975833 1 Capsule(s) INH QD 12/18/2013 07/17/2014 Inactive INHALE CONTENT S OF 1 CAPSULE(S) WITH HANDIHALER ONCE DAILY fluoxetine 20 mg capsule RxNorm: 448599 1 Capsule(s) PO QD 12/18/19 14 06/15/2014 Inactive Spiriva with HandiHaler 18 mcg & inhalation capsules RxNorm: 675862 1 Capsule(s) INH QD 12/18/2013 06/15/2014 Inactive INHALE CONTENTS OF 1 CAPSULE(S) WITH HANDIHALER ONCE DAILY fluoxetine 20 mg capsule RxNorm: 658888 1 Capsule(s) PO QD 12/18/19 14 07/17/2014 Inactive cefdinir 300 mg capsule RxNorm: 844480 2 Capsule(s) PO QD 12/12/2013 12/21/2013 Inactive Duragesic 100 mcg/hr transdermal patch RxNorm: 979532 2 Application TD Q48H for pain 12/08/2013 12/07/2013 Inactive Topamax 100 mg tablet RxNorm: 193079 1 Tablet(s) PO QHS 12/04/2013 Inactive Endocet 10 mg-325 mg tablet RxNorm: 1314232 1-2 Tablet(s) PO Q4H 12/26/2013 Inactive PRN PAIN Robaxin 750 mg tablet RxNorm: 649405 2 Tablet(s) PO TID as need ed for spasm 11/07/2013 01/05/2014 Inactive gabapentin 800 mg tablet RxNorm: 577457 1 Tablet(s) PO QD 10/16/2013 04/24/2014 Inactive TAKE ONE TABLET BY MOUTH EVERY DAY Symbicort 160 mcg-4.5 mcg/actuation HFA aerosol inhaler RxNo rm: 6071694 2 Puff(s) INH BID 10/16/2013 04/24/2014 Inactive INHALE 2 PUFFS O RALLY TWO TIMES A DAY Premarin 0.9 mg tablet RxNorm: 230296 1 Tablet(s) PO QD 10/16/2013 Inactive TAKE ONE TABLET BY MOUTH EVERY DAY metformin ER 500 mg tablet,extended release 24 hr RxNorm: 86 0975 1 Tablet(s) PO QD 10/16/2013 04/24/2014 Inactive TAKE ONE TABLET BY MOUTH EVERY DAY Daliresp 500 mcg tablet RxNorm: 1248363 1 Tablet(s) PO QD 10/16/2013 04/24/2014 Inactive Robaxin 750 mg tablet RxNorm: 948030 2 Tablet(s) PO TID as need ed for spasm 10/10/2013 11/06/2013 Inactive Duragesic 100 mcg/hr transdermal patch RxNorm: 199388 2 Application TD Q48H for pain 10/09/2013 No Stop Date Active Soma 350 mg tablet RxNorm: 947451 1 Tablet(s) PO TID 09/27/201310/09 Inactive TAKE ONE TABLET BY MOUTH THREE TIMES A D AY lactulose 10 gram/15 mL oral solution RxNorm: 510793 [address](s) PO QD 09/13/2013 03/07/2015 Inactive TAKE 1 TABLESPOON BY MOUTH ONCE DAILY Duragesic 100 mcg/hr transdermal patch RxNorm: 332928 2 Application TD Q48H for pain 09/06/2013 No Stop Date Active Endocet 10 mg-325 mg tablet RxNorm: 8394663 1-2 Tablet(s) PO Q4H 09/27/2013 Inactive PRN PAIN lancets 28 gauge RxNorm: Miscellaneous As needed for blo od glucose sticks 08/24/2013 No Stop Date Active 16.2 mg-0.1037 mg-0.0194 mg tablet RxNorm: 5330197 Tablet(s) PO PRN for gas and cramping 08/24/2013 01/19/2017 Inactive TAKE TWO TABLET S BY MOUTH THREE TIMES A DAY NEEDED FOR GAS AND CRAMPING Topamax 100 mg tablet RxNorm: 632162 1 Tablet(s) PO QHS 07/31/2013 Inactive Diflucan 100 mg tablet RxNorm: 476469 1 Tablet(s) PO QD 07/27/2013 Inactive cefdinir 300 mg capsule RxNorm: 327960 1 Capsule(s) PO BID 07/26/20 13 08/08/2013 Inactive Daliresp 500 mcg tablet RxNorm: 9037673 1 Tablet(s) PO QD 07/25/2013 10/15/2013 Inactive fluoxetine 40 mg capsule RxNorm: 449269 1 Capsule(s) PO QD 07/25/20 13 01/22/2014 Inactive TAKE ONE CAPSULE BY MOUTH EV JANKI MORNING Senokot-S 8.6 mg-50 mg tablet RxNorm: 3970944 1 Tablet(s) PO BID 10/25/2013 Inactive doxycycline hyclate 100 mg capsule RxNorm: 9359779 1 Capsule(s) PO BID 06/28/2013 07/07/2013 Inactive prednisone 20 mg tablet RxNorm: 247641 1 Tablet(s) PO BID 06/28/2013 07/04/2013 Inactive Zofran 4 mg tablet RxNorm: 933529 1 Tablet(s) PO Q4H prn nausea 03/201307/05/2013 Inactive Spiriva with HandiHaler 18 mcg & inhalation capsules RxNorm: 500892 1 Capsule(s) INH QD 06/26/2013 12/18/2013 Inactive INHALE CONTENTS OF 1 CAPSULE(S) WITH HANDIHALER ONCE DAILY Synthroid 112 mcg tablet RxNorm: 022027 1 Tablet(s) PO QD TAKE ONE TABLET BY MOUTH EVERY DAY 06/19/2013 02/15/2014 Inactive fluoxetine 20 mg capsule RxNorm: 002897 1 Capsule(s) PO QD 06/19/20 13 12/18/2013 Inactive Ventolin HFA 90 mcg/actuation Aerosol Inhaler RxNorm: 9484871 2 Puff(s) INH Q4H 06/05/2013 No Stop Date Active prn Soma 350 mg tablet RxNorm: 819883 1 Tablet(s) PO TID 06/05/201307/04 Inactive TAKE ONE TABLET BY MOUTH THREE TIMES A D AY prednisone 20 mg tablet RxNorm: 720344 1 Tablet(s) PO QD 05/31/2013 0 06/06/2013 Inactive Topamax 100 mg tablet RxNorm: 750950 1 Tablet(s) PO QHS 05/22/2013 Inactive Levaquin 500 mg tablet RxNorm: 270646 1 Tablet(s) PO QD 05/03/2013 Inactive Diflucan 100 mg tablet RxNorm: 280370 1 Tablet(s) PO QD 05/03/2013 Inactive Daliresp 500 mcg tablet RxNorm: 2062988 1 Tablet(s) PO QD 05/01/2013 07/24/2013 Inactive Daliresp 500 mcg tablet RxNorm: 7342161 1 Tablet(s) PO QD 05/01/2013 04/30/2013 Inactive gabapentin 800 mg tablet RxNorm: 549457 1 Tablet(s) PO QD 04/10/2013 10/06/2013 Inactive TAKE ONE TABLET BY MOUTH EVERY DAY metformin ER 500 mg tablet,extended release 24 hr RxNorm: 86 0977 1 Tablet(s) PO QD 04/10/2013 10/06/2013 Inactive TAKE ONE TABLET BY MOUTH EVERY DAY Premarin 0.9 mg tablet RxNorm: 755348 1 Tablet(s) PO QD 04/10/2013 Inactive TAKE ONE TABLET BY MOUTH EVERY DAY Symbicort 160 mcg-4.5 mcg/actuation HFA aerosol inhaler RxNo rm: 6690846 2 Puff(s) INH BID 04/10/2013 10/06/2013 Inactive INHALE 2 PUFFS O RALLY TWO TIMES A DAY Synthroid 112 mcg tablet RxNorm: 265561 1 Tablet(s) PO QD TAKE ONE TABLET BY MOUTH EVERY DAY 04/10/2013 06/18/2013 Inactive Ventolin HFA 90 mcg/actuation Aerosol Inhaler RxNorm: 040667 2 Puff(s) INH Q4H 04/10/2013 No Stop Date Active prn fentanyl 100 mcg/hr transdermal patch RxNorm: 055771 1 Unit Dos e TD QD 04/03/2013 05/02/2013 Inactive Endocet 10 mg-325 mg tablet RxNorm: 0497575 1-2 Tablet(s) PO Q4H 05/02/2013 Inactive PRN PAIN Topamax 100 mg tablet RxNorm: 565395 1 Tablet(s) PO QHS 03/13/2013 Inactive Reglan 10 mg tablet RxNorm: 633450 1 Tablet(s) PO QID b efore meals and at bedtime 03/13/2013 04/09/2015 Inactive fluoxetine 20 mg capsule RxNorm: 828699 1 Capsule(s) PO QD 02/28/20 13 05/27/2013 Inactive Ventolin HFA 90 mcg/actuation Aerosol Inhaler RxNorm: 612268 2 Puff(s) INH Q4H 02/13/2013 No Stop Date Active prn fluoxetine 40 mg capsule RxNorm: 597567 1 Capsule(s) PO QD 01/31/20 13 07/24/2013 Inactive TAKE ONE CAPSULE BY MOUTH EV JANKI MORNING Soma 350 mg tablet RxNorm: 957461 1 Tablet(s) PO TID 01/20/201302/18 Inactive TAKE ONE TABLET BY MOUTH THREE TIMES A D AY Endocet 10 mg-325 mg tablet RxNorm: 3841403 1-2 Tablet(s) PO Q4H 02/06/2013 Inactive PRN PAIN MS Contin 200 mg tablet,extended release RxNorm: 512043 1 Table t(s) PO BID 01/18/2013 02/06/2013 Inactive Ventolin HFA 90 mcg/actuation Aerosol Inhaler RxNorm: 173330 2 Puff(s) INH Q4H 01/04/2013 No Stop Date Active prn Spiriva with HandiHaler 18 mcg & inhalation capsules RxNorm: 353872 1 Capsule(s) INH QD 12/29/2012 06/25/2013 Inactive INHALE CONTENTS OF 1 CAPSULE(S) WITH HANDIHALER ONCE DAILY Spiriva with HandiHaler 18 mcg & inhalation capsules RxNorm: 915052 1 Capsule(s) INH QD 12/26/2012 12/28/2012 Inactive INHALE CONTENTS OF 1 CAPSULE(S) WITH HANDIHALER ONCE DAILY Synthroid 112 mcg tablet RxNorm: 145438 Tablet(s) PO TA KE ONE TABLET BY MOUTH EVERY DAY 12/26/2012 04/09/2013 Inactive Endocet 10 mg-325 mg tablet RxNorm: 1094467 1-2 Tablet(s) PO Q4H 01/17/2013 Inactive PRN PAIN MS Contin 200 mg tablet,extended release RxNorm: 222692 1 Table t(s) PO BID 12/21/2012 01/17/2013 Inactive fluoxetine 20 mg capsule RxNorm: 943689 1 Capsule(s) PO QD 12/06/19 13 02/26/2013 Inactive Synthroid 112 mcg tablet RxNorm: 078364 1 Tablet(s) PO QD 12/06/2012 02/12/2019 Inactive TAKE ONE TABLET BY MOUTH EVERY DAY Ventolin HFA 90 mcg/actuation Aerosol Inhaler RxNorm: 765699 2 Puff(s) INH Q4H 12/06/2012 No Stop Date Active prn Reglan 10 mg tablet RxNorm: 774702 1 Tablet(s) PO QID b efore meals and at bedtime 11/24/2012 03/12/2013 Inactive Topamax 100 mg tablet RxNorm: 920629 1 Tablet(s) PO QHS 11/16/2012 Inactive Ventolin HFA 90 mcg/actuation Aerosol Inhaler RxNorm: 762198 2 Puff(s) INH Q4H 11/09/2012 No Stop Date Active prn gabapentin 800 mg tablet RxNorm: 163941 1 Tablet(s) PO QD 10/27/2012 04/09/2013 Inactive TAKE ONE TABLET BY MOUTH EVERY DAY metformin ER 500 mg tablet,extended release 24 hr RxNorm: 86 0977 1 Tablet(s) PO QD 10/27/2012 04/09/2013 Inactive TAKE ONE TABLET BY MOUTH EVERY DAY Symbicort 160 mcg-4.5 mcg/actuation HFA Aerosol Inhaler RxNo rm: 0856005 2 Puff(s) INH BID 10/27/2012 04/09/2013 Inactive INHALE 2 PUFFS O RALLY TWO TIMES A DAY Premarin 0.9 mg tablet RxNorm: 783567 1 Tablet(s) PO QD 10/27/2012 Inactive TAKE ONE TABLET BY MOUTH EVERY DAY Endocet 10 mg-325 mg tablet RxNorm: 0830552 1-2 Tablet(s) PO Q4H 11/24/2012 Inactive PRN PAIN MS Contin 200 mg tablet,extended release RxNorm: 860255 1 Table t(s) PO BID 10/26/2012 11/24/2012 Inactive Soma 350 mg tablet RxNorm: 477270 1 Tablet(s) PO TID 10/04/201211/02 Inactive TAKE ONE TABLET BY MOUTH THREE TIMES A D AY Ventolin HFA 90 mcg/actuation Aerosol Inhaler RxNorm: 423036 2 Puff(s) INH Q4H 10/03/2012 No Stop Date Active prn Daliresp 500 mcg tablet RxNorm: 9614068 1 Tablet(s) PO QD 09/28/2012 09/27/2012 Inactive Daliresp 500 mcg tablet RxNorm: 6670887 1 Tablet(s) PO QD 09/28/2012 04/25/2013 Inactive fluoxetine 20 mg capsule RxNorm: 248663 1 Capsule(s) PO QD 09/05/2012/06/2012 Inactive Topamax 50 mg tablet RxNorm: 231970 Tablet(s) PO for 1w k then 1 po q HS for 1wk then 2 po q HS 08/29/2012 09/27/2012 Inactive TAKE 1/2 TABLET BY MOUTH AT BEDTIME FOR 1 WEEK, THEN 1 TABLET AT BEDTIME FOR 1 WEEK, THEN 2 TABLETS AT BEDTIME Topamax 100 mg tablet RxNorm: 779566 1 Tablet(s) PO QHS 08/29/2012 Inactive Ventolin HFA 90 mcg/actuation Aerosol Inhaler RxNorm: 690324 2 Puff(s) INH Q4H 08/19/2012 No Stop Date Active prn Ventolin HFA 90 mcg/actuation Aerosol Inhaler RxNorm: 129065 2 Puff(s) INH Q4H 08/15/2012 No Stop Date Active prn Synthroid 112 mcg tablet RxNorm: 832260 1 Tablet(s) PO QD 08/10/2012 11/07/2012 Inactive TAKE ONE TABLET BY MOUTH EVERY DAY Synthroid 112 mcg tablet RxNorm: 822664 1 Tablet(s) PO QD 08/01/2012 08/09/2012 Inactive TAKE ONE TABLET BY MOUTH EVERY DAY Reglan 10 mg tablet RxNorm: 055093 1 Tablet(s) PO QID b efore meals and at bedtime 08/01/2012 11/23/2012 Inactive fluoxetine 40 mg capsule RxNorm: 017723 1 Capsule(s) PO QD 08/01/2001/27/2013 Inactive TAKE ONE CAPSULE BY MOUTH EV JANKI MORNING Ventolin HFA 90 mcg/actuation Aerosol Inhaler RxNorm: 144823 2 Puff(s) INH Q4H 08/01/2012 No Stop Date Active prn Soma 350 mg tablet RxNorm: 764987 1 Tablet(s) PO TID 07/20/201208/18 Inactive TAKE ONE TABLET BY MOUTH THREE TIMES A D AY Spiriva with HandiHaler 18 mcg & inhalation capsules RxNorm: 811891 1 Capsule(s) INH 07/01/2012 12/25/2012 Inactive INHALE CONTENTS OF 1 CAPSULE(S) WITH HANDIHALER ONCE DAILY Zithromax 250 mg Tab RxNorm: 384371 2 Tablet(s) PO QD 06/28/201206/22 Inactive MS Contin 200 mg tablet,extended release RxNorm: 849543 1 Table t(s) PO BID 06/28/2012 07/27/2012 Inactive Endocet 10 mg-325 mg tablet RxNorm: 1422575 1-2 Tablet(s) PO Q4H 07/27/2012 Inactive PRN PAIN Topamax 100 mg tablet RxNorm: 938615 1 Tablet(s) PO QHS 06/28/2012 Inactive 16.2 mg-0.1037 mg-0.0194 mg tablet RxNorm: 9434731 Tablet(s) PO PRN for gas and cramping 06/08/2012 08/23/2013 Inactive TAKE TWO TABLET S BY MOUTH THREE TIMES A DAY NEEDED FOR GAS AND CRAMPING Ventolin HFA 90 mcg/actuation Aerosol Inhaler RxNorm: 687369 2 Puff(s) INH Q4H 05/23/2012 No Stop Date Active prn Ventolin HFA 90 mcg/actuation Aerosol Inhaler RxNorm: 985847 2 Puff(s) INH Q4H 05/11/2012 No Stop Date Active prn Synthroid 112 mcg tablet RxNorm: 638463 1 Tablet(s) PO QD 05/09/2012 07/31/2012 Inactive TAKE ONE TABLET BY MOUTH EVERY DAY gabapentin 800 mg tablet RxNorm: 900721 1 Tablet(s) PO QD 05/09/2012 10/26/2012 Inactive TAKE ONE TABLET BY MOUTH EVERY DAY fluoxetine 40 mg capsule RxNorm: 164577 1 Capsule(s) PO QD 05/09/2007/31/2012 Inactive TAKE ONE CAPSULE BY MOUTH EV JANKI MORNING metformin ER 500 mg tablet,extended release 24 hr RxNorm: 86 0977 1 Tablet(s) PO QD 05/09/2012 10/26/2012 Inactive TAKE ONE TABLET BY MOUTH EVERY DAY Premarin 0.9 mg tablet RxNorm: 515230 1 Tablet(s) PO QD 05/09/2012 Inactive TAKE ONE TABLET BY MOUTH EVERY DAY Symbicort 160 mcg-4.5 mcg/actuation HFA Aerosol Inhaler RxNo rm: 8443365 2 Puff(s) INH BID 05/09/2012 10/26/2012 Inactive INHALE 2 PUFFS O RALLY TWO TIMES A DAY Endocet 10 mg-325 mg Tab RxNorm: 9090866 1-2 Tablet(s) PO Q4H 04/2705/26/2012 Inactive PRN PAIN MS Contin 200 mg Tab RxNorm: 147195 1 Tablet(s) PO BID 04/26/201202/2012 Inactive Ventolin HFA 90 mcg/actuation Aerosol Inhaler RxNorm: 491559 2 Puff(s) INH Q4H 04/25/2012 05/10/2012 Inactive prn Soma 350 mg tablet RxNorm: 196258 2 Tablet(s) PO TID 04/19/201207/19 Inactive TAKE ONE TABLET BY MOUTH THREE TIMES A D AY Ventolin HFA 90 mcg/actuation Aerosol Inhaler RxNorm: 670332 2 Puff(s) INH Q4H 04/12/2012 04/24/2012 Inactive prn Reglan 10 mg tablet RxNorm: 511936 1 Tablet(s) PO QID b efore meals and at bedtime 04/11/2012 07/31/2012 Inactive MS Contin 200 mg Tab RxNorm: 540451 1 Tablet(s) PO BID 03/30/201202/2012 Inactive Endocet 10 mg-325 mg Tab RxNorm: 2718984 1-2 Tablet(s) PO Q4H 03/3004/26/2012 Inactive PRN PAIN MS Contin 200 mg Tab RxNorm: 914978 1 Tablet(s) PO BID 03/02/201206/2012 Inactive Endocet 10 mg-325 mg Tab RxNorm: 4417925 1-2 Tablet(s) PO Q4H 03/0203/29/2012 Inactive PRN PAIN Daliresp 500 mcg tablet RxNorm: 5508813 1 Tablet(s) PO QD 03/01/2012 09/28/2012 Inactive MS Contin 200 mg Tab RxNorm: 219998 1 Tablet(s) PO BID 02/02/201208/2012 Inactive Endocet 10 mg-325 mg Tab RxNorm: 5395032 1-2 Tablet(s) PO Q4H 02/0103/01/2012 Inactive PRN PAIN fluoxetine 40 mg capsule RxNorm: 541805 1 Capsule(s) PO QD 02/02/2008/01/2012 Inactive TAKE ONE CAPSULE BY MOUTH EV JANKI MORNING Synthroid 112 mcg Tab RxNorm: 222486 1 Tablet(s) PO QD 01/18/2012 Inactive TAKE ONE TABLET BY MOUTH EVERY DAY lactulose 10 gram/15 mL oral solution RxNorm: 696256 [address]s) PO QD 01/18/2012 No Stop Date Active TAKE 1 TABLESPOON BY MOUTH ONCE DAILY Ventolin HFA 90 mcg/actuation Aerosol Inhaler RxNorm: 648320 2 Puff(s) INH Q4H 01/18/2012 04/11/2012 Inactive prn MS Contin 200 mg Tab RxNorm: 520867 1 Tablet(s) PO BID 01/05/201210/2012 Inactive Endocet 10 mg-325 mg Tab RxNorm: 5315551 1-2 Tablet(s) PO Q4H 01/0502/01/2012 Inactive PRN PAIN ProAir HFA 90 mcg/Actuation Aerosol Inhaler RxNorm: 143762 2 Pu ff(s) INH Q4H 12/21/2011 No Stop Date Active prn for wheezing or shortness of breath Spiriva with HandiHaler 18 mcg & inhalation Caps RxNorm: 580 261 1 Capsule(s) INH 12/21/2011 06/30/2012 Inactive INHALE CONTENTS OF 1 CAPSULE(S) WITH HANDIHALER ONCE DAILY Reglan 10 mg Tab RxNorm: 758668 1 Tablet(s) PO QID before meals and at bedtime 12/21/2011 04/10/2012 Inactive Synthroid 112 mcg Tab RxNorm: 755242 1 Tablet(s) PO QD 12/21/2011 Inactive TAKE ONE TABLET BY MOUTH EVERY DAY Endocet 10 mg-325 mg Tab RxNorm: 7782687 1-2 Tablet(s) PO Q4H 11/2512/24/2011 Inactive PRN PAIN MS Contin 200 mg Tab RxNorm: 762319 1 Tablet(s) PO BID 11/25/201112/2011 Inactive lactulose 10 gram/15 mL Oral Soln RxNorm: 001112 Milliliter(s) PO 1 No Stop Date Active TAKE 1 TABLESPOON BY MOUTH O NCE DAILY lactulose 10 gram/15 mL Oral Soln RxNorm: 840593 Milliliter(s) PO 1 12/12/2010 11/20/2011 Inactive TAKE 1 TABLESPOON BY MOUTH O NCE DAILY Premarin 0.9 mg Tab RxNorm: 943590 1 Tablet(s) PO QD 10/12/201105/08 Inactive TAKE ONE TABLET BY MOUTH EVERY DAY fluoxetine 20 mg capsule RxNorm: 691917 1 Capsule(s) PO QD 10/12/2009/05/2012 Inactive TAKE ONE CAPSULE BY MOUTH EV JANKI DAY Synthroid 112 mcg Tab RxNorm: 841515 1 Tablet(s) PO QD 10/12/2011 Inactive TAKE ONE TABLET BY MOUTH EVERY DAY metformin ER 500 mg 24 hr Tab RxNorm: 758282 1 Tablet(s) PO QD 09/2311/10/2011 Inactive TAKE ONE TABLET BY MOUTH GLYNN RY DAY Synthroid 112 mcg Tab RxNorm: 274006 1 Tablet(s) PO QD 10/12/2011 Inactive TAKE ONE TABLET BY MOUTH EVERY DAY metformin ER 500 mg 24 hr Tab RxNorm: 007155 1 Tablet(s) PO QD 09/2310/11/2011 Inactive TAKE ONE TABLET BY MOUTH GLYNN RY DAY Prevacid 30 mg Cap RxNorm: 092832 Capsule(s) PO 10/12/2011 01/25/2012 Inactive TAKE ONE CAPSULE BY MOUTH EVERY DAY Symbicort 160 mcg-4.5 mcg/actuation HFA Aerosol Inhaler RxNo rm: 5171503 2 Puff(s) INH BID 10/12/2011 05/08/2012 Inactive INHALE 2 PUFFS O RALLY TWO TIMES A DAY gabapentin 800 mg Tab RxNorm: 103769 1 Tablet(s) PO QD 10/12/2011 Inactive TAKE ONE TABLET BY MOUTH EVERY DAY MS Contin 200 mg Tab RxNorm: 561960 1 Tablet(s) PO BID 09/23/201111/2010 Inactive Endocet 10 mg-325 mg Tab RxNorm: 9850511 1-2 Tablet(s) PO Q4H 09/2310/22/2011 Inactive PRN PAIN Endocet 10 mg-325 mg Tab RxNorm: 1877084 1-2 Tablet(s) PO Q4H 08/2109/19/2011 Inactive PRN PAIN MS Contin 200 mg Tab RxNorm: 228360 1 Tablet(s) PO BID 08/21/2011 Inactive Diflucan 100 mg Tab RxNorm: 841226 1 Tablet(s) PO QD 08/10/201108/16 Inactive cefdinir 300 mg Cap RxNorm: 657784 2 Capsule(s) PO QD 08/10/201107/24 Inactive Reglan 10 mg Tab RxNorm: 130031 1 Tablet(s) PO AC & HS 07/15/2011 Inactive Endocet 10 mg-325 mg Tab RxNorm: 4409866 1-2 Tablet(s) PO Q4H 07/1508/13/2011 Inactive PRN PAIN One Touch Ultra Test strips RxNorm: Miscellaneous BID 06/11/2011 1 01/16/2014 Inactive TEST TWO TIMES A DAY lactulose 10 gram/15 mL Oral Soln RxNorm: 666709 Milliliter(s) PO 0 06/10/2011 10/11/2011 Inactive TAKE 1 TABLESPOON BY MOUTH O NCE DAILY Chantix Continuing Month Aníbal 1 mg Tab RxNorm: 753519 Tablet(s) PO 0 06/10/2011 11/02/2011 Inactive TAKE DIRECTED - PER PACK[employer] GE INSTRUCTIONS fluoxetine 40 mg Cap RxNorm: 924911 Capsule(s) PO 06/10/2011 02/02/20 Inactive TAKE ONE CAPSULE BY MOUTH EVERY MORNING Chantix Continuing Month Aníbal 1 mg Tab RxNorm: 518071 Ta blet(s) PO TAKE DIRECTED - PER PACKAGE INSTRUCTIONS 05/13/2011 06/09/2011 Inactive Soma 350 mg Tab RxNorm: 255400 Tablet(s) PO TAKE ON E TABLET BY MOUTH THREE TIMES A DAY 05/13/2011 04/18/2012 Inactive Chantix Continuing Month Aníbal 1 mg Tab RxNorm: 191943 Ta blet(s) PO as directed per package instructions. 04/22/2011 05/12/2011 Inactive Symbicort 160 mcg-4.5 mcg/Actuation HFA Aerosol Inhaler RxNo rm: 0681060 HFA Aerosol Inhaler INH INHALE 2 PUFFS ORALLY TWO TIMES A DAY 04/13/2011 Inactive Synthroid 112 mcg Tab RxNorm: 490645 Tablet(s) PO TAKE ONE TABLET BY MOUTH EVERY DAY 04/13/2011 10/12/2011 Inactive Premarin 0.9 mg Tab RxNorm: 177727 Tablet(s) PO TAKE ON E TABLET BY MOUTH EVERY DAY 04/13/2011 10/12/2011 Inactive gabapentin 800 mg Tab RxNorm: 296180 Tablet(s) PO TAKE ONE TABLET BY MOUTH EVERY DAY 04/13/2011 10/12/2011 Inactive Prevacid 30 mg Cap RxNorm: 418175 1 Capsule(s) PO QD 04/13/201110/11 Inactive Spiriva with HandiHaler 18 mcg & inhalation Caps RxNorm: 580 261 Capsule(s) INH INHALE CONTENTS OF 1 CAPSULE(S) WITH HANDIHALER ONCE DAILY 04/13/2011 12/21/2011 Inactive metformin ER 500 mg 24 hr Tab RxNorm: 488446 Tablet(s) PO TAKE ONE TABLET BY MOUTH EVERY DAY 04/13/2011 10/12/2011 Inactive Soma 350 mg Tab RxNorm: 255521 1 Tablet(s) PO QID 03/30/2011 02/13/20 19 Inactive fluoxetine 20 mg Cap RxNorm: 762606 Capsule(s) PO TAKE ONE CAPSULE BY MOUTH EVERY DAY 03/25/2011 10/12/2011 Inactive cefdinir 300 mg Cap RxNorm: 066300 2 Capsule(s) PO QD 03/19/201105/2011 Inactive 16.2 mg-0.1037 mg-0.0194 mg Tab RxNorm: 5803815 2 Tablet(s) PO TID PRN for gas and cramping 03/16/2011 07/13/2011 Inactive Soma 350 mg Tab RxNorm: 495767 2 Tablet(s) PO TID 03/16/2011 03/29/20 11 Inactive Chantix Starting Month Aníbal 0.5 mg (11)-1 mg (3x14) Tab s in a Dose Pack RxNorm: 338991 Tablet(s) PO as directed 03/02/2011 No Stop Date Active diazepam 10 mg Tab RxNorm: 392584 1 Tablet(s) PO BID 02/10/201101/19 Inactive Zofran 4 mg tablet RxNorm: 977523 1 Tablet(s) PO Q4H prn nausea 02/16/2011 Inactive Diflucan 100 mg Tab RxNorm: 152215 1 Tablet(s) PO QD 01/18/201101/24 Inactive Premarin 0.625 mg/g Vaginal Cream RxNorm: 751234 VAG In sert 1gm vaginally at bedtime 3 times weekly 01/18/2011 02/12/2019 Inactive loratadine 10 mg Tab RxNorm: 7333736 1 Tablet(s) PO QD 12/17/201003/2012 Inactive Spiriva with HandiHaler 18 mcg & inhalation Caps RxNorm: 580 261 1 Capsule(s) INH QD 12/17/2010 04/12/2011 Inactive Diflucan 100 mg Tab RxNorm: 895425 1 Tablet(s) PO QD 12/17/201012/23 Inactive diazepam 10 mg Tab RxNorm: 501060 1 Tablet(s) PO BID and PRN 201002/12/2019 Inactive One Touch Ultra Test Strips RxNorm: InVt BID Zainab t blood sugar at least twice daily. 11/11/2010 06/11/2011 Inactive fluoxetine 40 mg Cap RxNorm: 744757 1 Capsule(s) PO QAM 11/11/2010 Inactive diazepam 10 mg Tab RxNorm: 348481 1 Tablet(s) PO BID and PRN 200911/12/2010 Inactive Bactrim DS 800 mg-160 mg Tab RxNorm: 204873 1 Tablet(s) PO BID 09/2210/15/2010 Inactive fluoxetine 20 mg Cap RxNorm: 916064 1 Capsule(s) PO QD 10/02/201008/2011 Inactive Bactrim DS 800 mg-160 mg Tab RxNorm: 614866 1 Tablet(s) PO BID 01/201010/03/2010 Inactive Zofran 4 mg Tab RxNorm: 642227 1 Tablet(s) PO Q4H prn nausea 200910/16/2010 Inactive 16.2 mg-0.1037 mg-0.0194 mg Tab RxNorm: 1410924 2 Tablet(s) PO TID PRN for gas and cramping 09/17/2010 10/21/2010 Inactive Gabapentin 800 mg Tab RxNorm: 052815 1 Tablet(s) PO QD 09/16/2010 Inactive ProAir HFA 90 mcg/Actuation Aerosol Inhaler RxNorm: 799655 2 Puff(s) INH Q4H prn shortness of breath 09/15/2010 12/13/2010 Inactive gabapentin 800 mg Tab RxNorm: 529750 1 Tablet(s) PO QD 09/15/2010 Inactive Prevacid 30 mg Cap RxNorm: 970858 1 Capsule(s) PO QD 09/15/201004/12 Inactive loratadine 10 mg Tab RxNorm: 6930821 1 Tablet(s) PO QD 09/15/2010 Inactive Premarin 0.9 mg Tab RxNorm: 193747 1 Tablet(s) PO QD 09/15/201004/12 Inactive Synthroid 112 mcg Tab RxNorm: 117480 1 Tablet(s) PO QD 09/15/2010 Inactive metformin ER 500 mg 24 hr Tab RxNorm: 435619 1 Tablet(s) PO QD 08/2304/12/2011 Inactive Symbicort 160 mcg-4.5 mcg/Actuation Inhalation HFA Aer osol Inhaler RxNorm: 5591009 2 Puff(s) INH BID 09/15/2010 04/12/2011 Inactive diazepam 10 mg Tab RxNorm: 171567 1 Tablet(s) PO BID and PRN 200910/13/2010 Inactive Phentermine 37.5 mg Cap RxNorm: 281901 1 Capsule(s) PO QD 09/02/2010 11/02/2011 Inactive ProAir HFA 90 mcg/Actuation Aerosol Inhaler RxNorm: 489223 2 Puff(s) INH Q4H prn shortness of breath 08/07/2010 No Stop Date Active Premarin 0.9 mg Tab RxNorm: 590895 1 Tablet(s) PO QD 08/07/201009/14 Inactive Loratadine 10 mg Tab RxNorm: 7466655 1 Tablet(s) PO QD 08/07/2010 Inactive Lactulose 10 gram/15 mL Oral Soln RxNorm: 930660 1 Unit Dose PO QD 08/07/2010 02/12/2019 Inactive Zofran 4 mg Tab RxNorm: 588610 1 Tablet(s) PO Q4H prn nausea 2009 No Stop Date Active Gabapentin 800 mg Tab RxNorm: 126677 1 Tablet(s) PO QD 08/07/2010 Inactive Synthroid 112 mcg Tab RxNorm: 016444 1 Tablet(s) PO QD 08/07/2010 Inactive Metformin ER 500 mg 24 hr Tab RxNorm: 779375 1 Tablet(s) PO QD 07/2309/14/2010 Inactive Vitamin D 1,000 unit Tab RxNorm: 379752 1 Tablet(s) PO TID 08/07/2002/12/2019 Inactive Symbicort 160 mcg-4.5 mcg/Actuation Inhalation HFA Aer osol Inhaler RxNorm: 1574821 2 Puff(s) INH BID 08/07/2010 09/14/2010 Inactive Prevacid 30 mg Cap RxNorm: 283265 1 Capsule(s) PO QD 08/07/201009/14 Inactive Metformin ER 500 mg 24 hr Tab RxNorm: 357195 1 Tablet(s) PO QD 06/2308/06/2010 Inactive Vitamin D 1,000 unit Tab RxNorm: 445032 1 Tablet(s) PO TID 07/14/2008/06/2010 Inactive Synthroid 112 mcg Tab RxNorm: 655850 1 Tablet(s) PO QD 07/14/2010 Inactive Lactulose 10 gram/15 mL Oral Soln RxNorm: 913050 1 Unit Dose PO QD 07/14/2010 08/06/2010 Inactive Levaquin 500 mg Tab RxNorm: 684051 1 Tablet(s) PO QD 07/14/201007/27 Inactive Premarin 0.9 mg Tab RxNorm: 768018 1 Tablet(s) PO QD 07/14/201008/06 Inactive ProAir HFA 90 mcg/Actuation Aerosol Inhaler RxNorm: 386697 2 Puff(s) INH Q4H prn shortness of breath 07/14/2010 No Stop Date Active Prevacid 30 mg Cap RxNorm: 967476 1 Capsule(s) PO QD 07/14/201008/06 Inactive Zofran 4 mg Tab RxNorm: 036268 1 Tablet(s) PO Q4H prn nausea 2009 No Stop Date Active Symbicort 160 mcg-4.5 mcg/Actuation Inhalation HFA Aer osol Inhaler RxNorm: 8923807 2 Puff(s) INH BID 07/14/2010 08/06/2010 Inactive Loratadine 10 mg Tab RxNorm: 3437901 1 Tablet(s) PO QD 07/14/2010 Inactive Gabapentin 800 mg Tab RxNorm: 816946 1 Tablet(s) PO QD 07/14/2010 Inactive Metformin ER 500 mg 24 hr Tab RxNorm: 275017 1 Tablet(s) PO 010 07/13/2010 Inactive Diazepam 10 mg Tab RxNorm: 740204 1 Tablet(s) PO BID and PRN 200909/06/2010 Inactive Premarin 0.9 mg Tab RxNorm: 211162 1 Tablet(s) PO QD 06/09/201007/13 Inactive Zofran 4 mg Tab RxNorm: 246988 1 Tablet(s) PO Q4H prn nausea 2009 No Stop Date Active ProAir HFA 90 mcg/Actuation Aerosol Inhaler RxNorm: 858827 2 Puff(s) INH Q4H prn shortness of breath 06/09/2010 No Stop Date Active Gabapentin 800 mg Tab RxNorm: 412398 1 Tablet(s) PO QD 06/09/2010 Inactive Loratadine 10 mg Tab RxNorm: 2280236 1 Tablet(s) PO QD 06/09/2010 Inactive Lactulose 10 gram/15 mL Oral Soln RxNorm: 929454 1 Unit Dose PO QD 06/09/2010 07/13/2010 Inactive Prevacid 30 mg Cap RxNorm: 424307 1 Capsule(s) PO QD 06/09/201007/13 Inactive Synthroid 112 mcg Tab RxNorm: 323569 1 Tablet(s) PO QD 06/09/2010 Inactive Symbicort 160 mcg-4.5 mcg/Actuation Inhalation HFA Aer osol Inhaler RxNorm: 9327354 2 Puff(s) INH BID 06/09/2010 07/13/2010 Inactive Omnicef 300 mg Cap RxNorm: 175465 2 Capsule(s) PO QD 05/07/201005/20 Inactive Metformin 500 mg Tab RxNorm: 419874 1 Tablet(s) PO QD 05/06/201005/22 Inactive ProAir HFA 90 mcg/Actuation Aerosol Inhaler RxNorm: 034381 2 Puff(s) INH Q4H prn shortness of breath 05/06/2010 No Stop Date Active lactulose 10 gram/15 mL Oral Soln RxNorm: 138427 1 Unit Dose PO QD 05/06/2010 06/10/2011 Inactive Loratadine 10 mg Tab RxNorm: 7447507 1 Tablet(s) PO QD 05/06/2010 Inactive Synthroid 112 mcg Tab RxNorm: 293380 1 Tablet(s) PO QD 05/06/2010 Inactive Symbicort 160 mcg-4.5 mcg/Actuation Inhalation HFA Aer osol Inhaler RxNorm: 4804171 2 Puff(s) INH BID 05/06/2010 06/08/2010 Inactive Gabapentin 800 mg Tab RxNorm: 696888 1 Tablet(s) PO QD 05/06/2010 Inactive 16.2 mg-0.1037 mg-0.0194 mg Tab RxNorm: 5576861 2 Tablet(s) PO TID PRN for gas and cramping 05/06/2010 05/12/2010 Inactive Zofran 4 mg Tab RxNorm: 228989 1 Tablet(s) PO Q4H prn nausea 200904/13/2010 Inactive MS Contin 60 mg Tab RxNorm: 357271 3 Tablet(s) PO BID 04/09/201004/22 Inactive Soma 350 mg Tab RxNorm: 196222 2 Tablet(s) PO TID 04/09/2010 05/08/20 10 Inactive Symbicort 160 mcg-4.5 mcg/Actuation Inhalation HFA Aer osol Inhaler RxNorm: 2453958 2 Puff(s) INH BID 04/08/2010 05/05/2010 Inactive Doxycycline 100 mg Cap RxNorm: 9879826 1 Capsule(s) PO BID 04/08/20 10 04/17/2010 Inactive Triamterene-Hydrochlorothiazide 37.5 mg-25 mg Cap RxNorm: 19 8316 1 Capsule(s) PO QAM 04/08/2010 09/04/2010 Inactive fluoxetine 40 mg Cap RxNorm: 994053 1 Capsule(s) PO QAM 04/08/2010 Inactive Morphine SR 120 mg multiphase 24 hr Cap RxNorm: 707272 1 Capsul e(s) PO 03/11/2010 04/07/2010 Inactive Endocet 10 mg-325 mg Tab RxNorm: 0414130 1-2 Tablet(s) PO Q4H OR N PAIN 03/11/2010 04/09/2010 Inactive Savella 100 mg Tab RxNorm: 937952 1 Tablet(s) PO BID 03/10/201004/09 Inactive Soma 350 mg Tab RxNorm: 989635 1 Tablet(s) PO TID prn spasm 010 04/09/2010 Inactive Savella 100 mg Tab RxNorm: 000027 1 Tablet(s) PO BID 02/03/201004/09 Inactive Aspirin 81 mg Tab RxNorm: 442399 1 Tablet(s) PO QD No Start Date Active Zyrtec 10 mg Tab RxNorm: 5485171 1 Tablet(s) PO QD No Start Date Active One Touch Ultra Test Strips RxNorm: Misc test at least t wice daily. No Start Date Active coenzyme Q10 200 mg capsule RxNorm: 587851 1 Capsule(s) PO QD No Star t Date Active One Touch Ultra Test Strips RxNorm: InVt BID Zainab t blood sugar at least twice daily. No Start Date 11/10/2010 Inactive Gabapentin 800 mg Tab RxNorm: 672002 1 Tablet(s) PO QD No Start Date 05/05/2010 Inactive Abilify 5 mg tablet RxNorm: 837313 1 Tablet(s) PO QD No Start Date Inactive Chantix 1 mg Tab RxNorm: 908884 1 Tablet(s) PO BID No Start Date 10/22 Inactive Ozempic 0.25 mg or 0.5 mg (2 mg/1.5 mL) subcutaneous p en injector RxNorm: 9464662 .25 Milligram(s) SQ QW No Start Date 07/04/2019 Inactive lancets 28 gauge RxNorm: Miscellaneous As needed for blo od glucose sticks No Start Date 08/23/2013 Inactive potassium chloride ER 20 mEq tablet,extended release RxNorm: 865137 2 Tablet(s) PO QD No Start Date 09/26/2018 Inactive Ventolin HFA 90 mcg/actuation Aerosol Inhaler RxNorm: 153694 2 Puff(s) INH Q4H prn No Start Date 01/17/2012 Inactive potassium chloride ER 20 mEq tablet,extended release RxNorm: 564781 2 Tablet(s) PO QD No Start Date 10/19/2018 Inactive Januvia 100 mg tablet RxNorm: 610810 1 Tablet(s) PO QD No Start Date 09/10/2015 Inactive Medrol (Aníbal) 4 mg Tabs in a Dose Pack RxNorm: 645520 Tablet(s) PO N o Start Date 08/09/2011 Inactive as directed Zithromax Z-Aníbal 250 mg Tab RxNorm: 182398 Tablet(s) PO No Start Date 01/25/2012 Inactive as directed vitamin B6-vitamin E-magnesium tablet RxNorm: 1 Tablet(s ) PO QHS with INH No Start Date 03/30/2018 Inactive prednisone 20 mg Tab RxNorm: 658535 1 Tablet(s) PO TID for 1wk then 1 po BID for 1wk No Start Date 01/25/2012 Inactive furosemide 40 mg tablet RxNorm: 549222 1 Tablet(s) PO QAM No Start Date 10/09/2018 Inactive Vitamin D3 1000 units Capsule RxNorm: 1 Capsule(s) PO TID No S tart Date 03/19/2015 Inactive Zofran 4 mg Tab RxNorm: 204978 1 Tablet(s) PO Q4H prn nausea No Sta rt Date 04/13/2010 Inactive Premarin 0.625 mg/g Vaginal Cream RxNorm: 069890 1 Gram (s) VAG QHS 3 times a week No Start Date 09/22/2017 Inactive oxycodone 10 mg tablet RxNorm: 7892477 1-2 Tablet(s) PO QID as n eeded for pain No Start Date 11/04/2015 Inactive Nicoderm CQ 21 mg/24 hr daily Patch RxNorm: 490185 1 Applicatio n TD QD No Start Date 08/05/2015 Inactive Topamax 50 mg tablet RxNorm: 645046 1/2 Tablet(s) PO QH S for 1wk then 1 po q HS for 1wk then 2 po q HS No Start Date 06/27/2012 Inactive Chantix Starting Month Aníbal 0.5 mg (11)-1 mg (3x14) Tab s in a Dose Pack RxNorm: 558558 Tablet(s) PO as directed No Start Date 03/01/2011 Inactive Trulicity 0.75 mg/0.5 mL subcutaneous pen injector RxNorm: 1 515297 Milliliter(s) SQ No Start Date 07/04/2019 Inactive Medrol (Aníbal) 4 mg Tabs in a Dose Pack RxNorm: 076902 Tablet(s) PO N o Start Date 01/25/2012 Inactive as directed Duragesic 100 mcg/hr Transderm Patch RxNorm: 983850 2 A pplication TD Q48H for pain No Start Date 09/05/2013 Inactive Premarin 0.9 mg Tab RxNorm: 122524 1 Tablet(s) PO QD No Start Date Inactive Zithromax Z-Aníbal 250 mg Tab RxNorm: 793370 Tablet(s) PO as direc chinmay No Start Date 01/25/2012 Inactive ondansetron 8 mg disintegrating tablet RxNorm: 923695 1 Tablet(s) PO Q6H as needed No Start Date 10/10/2018 Inactive oxycodone 15 mg tablet RxNorm: 3937249 1 Tablet(s) PO QID as nee ded for pain No Start Date 03/05/2019 Inactive ProAir HFA 90 mcg/Actuation Aerosol Inhaler RxNorm: 297182 2 Puff(s) INH Q4H prn for wheezing or shortness of breath No Start Date 12/21/2011 Inactive pravastatin 40 mg tablet RxNorm: 718607 1/2 Tablet(s) PO QOD No Sta rt Date 04/09/2015 Inactive ipratropium-albuterol 0.5 mg-3 mg(2.5 mg base)/3 mL ne bulization soln RxNorm: 1469170 1 Unit Dose INH Q4H as needed No Start Date 09/09/2016 Inactive furosemide 40 mg tablet RxNorm: 487987 1 Tablet(s) PO QAM as ne eded No Start Date 09/24/2019 Inactive Vitamin D2 oral RxNorm: 4018 oral No Start Date 03/18/2015 Inacti ve pravastatin 40 mg tablet RxNorm: 847049 1/2 Tablet(s) PO QD No Star t Date 04/09/2015 Inactive ondansetron HCl 4 mg tablet RxNorm: 276886 1 Tablet(s) PO Q4H as needed for nausea and vomiting No Start Date 04/07/2016 Inactive furosemide 40 mg tablet RxNorm: 598959 2 Tablet(s) PO QAM No Start Date 09/26/2018 Inactive gabapentin 800 mg tablet RxNorm: 983957 1/2 Tablet(s) PO BID No Sta rt Date 06/21/2017 Inactive gabapentin 800 mg tablet RxNorm: 753908 1/2 Tablet(s) PO BID No Sta rt Date 07/05/2017 Inactive ProAir HFA 90 mcg/Actuation Aerosol Inhaler RxNorm: 365506 2 Puff(s) INH Q4H prn shortness of breath No Start Date 05/05/2010 Inactive scopolamine 1 mg over 3 days transdermal patch RxNorm: 61998 2 1 Application TD behind ear. Take off after three days No Start Date 10/10/2018 Inactive Metformin 500 mg Tab RxNorm: 800799 1 Tablet(s) PO QD No Start Date 0 05/05/2010 Inactive MS Contin 200 mg Tab RxNorm: 619207 1 Tablet(s) PO BID No Start Date 08/20/2011 Inactive Belladonna-Phenobarbital 48 mg tablet,extended release RxNor m: 2 Tablet(s) PO TID No Start Date 06/04/2016 Inactive Synthroid 112 mcg Tab RxNorm: 174998 1 Tablet(s) PO QD No Start Date 05/05/2010 Inactive Zegerid 40 mg-1.1 gram Cap RxNorm: 229223 1 Capsule(s) PO QD No Sta rt Date 01/25/2012 Inactive Premarin 0.625 mg/g Vaginal Cream RxNorm: 666274 VAG In sert 1gm vaginally at bedtime 3 times weekly No Start Date 01/17/2011 Inactive potassium chloride ER 20 mEq tablet,extended release RxNorm: 567276 1 Tablet(s) PO QD No Start Date 04/24/2019 Inactive methocarbamol 750 mg tablet RxNorm: 611947 2 Tablet(s) PO TID as needed for muscle spasm No Start Date 07/08/2014 Inactive Biaxin XL Aníbal 500 mg 24 hr Tab RxNorm: 093485 Tablet(s) PO as d irected No Start Date 04/24/2013 Inactive Vitamin D3 1,000 unit tablet RxNorm: 216924 3 Tablet(s) PO QD No St art Date 06/01/2017 Inactive Morphine SR 120 mg multiphase 24 hr Cap RxNorm: 488655 1 Capsul e(s) PO BID No Start Date 04/09/2010 Inactive Silvadene 1 % topical cream RxNorm: 606701 1 Application TOP BI D to burn area No Start Date 01/31/2017 Inactive Prednisone 20 mg Tab RxNorm: 933857 1 Tablet(s) PO TID for 3days then BID for 4days No Start Date 01/25/2012 Inactive gabapentin 600 mg tablet RxNorm: 160832 1 Tablet(s) PO BID No Start Date 01/21/2015 Inactive topiramate 50 mg tablet RxNorm: 341635 1 Tablet(s) PO QHS No Start Date 03/30/2018 Inactive Januvia 100 mg tablet RxNorm: 613648 1/2 Tablet(s) PO QD No Start D ate 12/25/2015 Inactive Diazepam 10 mg Tab RxNorm: 638497 1 Tablet(s) PO BID and PRN No Sta rt Date 06/08/2010 Inactive Medication Administered No Medication Administered data Immunizations Vaccine Codes Date Status Influenza CVX: 141 09/28/2012 Pneumovax Unknown 09/28/2012 Influenza (Adult) CVX: 141 09/02/2010 Results No Results data Procedures Procedure Codes Date THER/PROPH/DIAG INJ SC/IM CPT-4: 82906 07/10/2019 METHYLPREDNISOLONE INJECTION CPT-4: J2930 07/10/2019 URINALYSIS NONAUTO W/O SCOPE CPT-4: 22233 09/06/2018 URINE CULTURE/ COLONY COUNT CPT-4: 65736 09/06/2018 DRAIN/INJECT JOINT/BURSA CPT-4: 49768 04/29/2017 TRIAMCINOLONE ACET INJ NOS CPT-4: J3301 04/29/2017 DEXAMETHASONE SODIUM PHOS CPT-4: J1100 04/29/2017 INFLUENZA ASSAY W/OPTIC CPT-4: 89217 12/01/2016 RESPIRATORY CULTURE & STAIN CPT-4: 06896 07/09/2016 TB INTRADERMAL TEST CPT-4: 75545 04/21/2016 DRAIN/INJECT JOINT/BURSA CPT-4: 33060 11/07/2013 METHYLPREDNISOLONE 40 MG INJ CPT-4: J1030 11/07/2013 TRIAMCINOLONE ACET INJ NOS CPT-4: J3301 11/07/2013 DRAIN/INJECT JOINT/BURSA CPT-4: 48545 08/08/2013 METHYLPREDNISOLONE 40 MG INJ CPT-4: J1030 08/08/2013 TRIAMCINOLONE ACET INJ NOS CPT-4: J3301 08/08/2013 FLU VACCINE 3 YRS & > IM UP 64 CPT-4: 50761 2 PNEUMOCOCCAL VACC 23 ADITYA IM CPT-4: 86633 09/28/2012 IMMUNIZATION ADMIN CPT-4: 22287 09/28/2012 IMMUNIZATION ADMIN EACH ADD CPT-4: 27191 09/28/2012 FLU VACCINE 3 YRS & > IM UP 64 CPT-4: 59930 0 IMMUNIZATION ADMIN CPT-4: 53506 09/02/2010 METHYLPREDNISOLONE INJECTION CPT-4: J2930 05/07/2010 THER/PROPH/DIAG INJ SC/IM CPT-4: 34407 05/07/2010 Vital Signs Date Vital 11/29/2019 Blood [...] ight: 170 lbs 02/13/2019 Blood Pressure 1: 12278 Code: 8480-6 BMI: 29.5 Code: 27171-2 Heart Rate 1: 76 bpm Height: 5'4" Respiratory Rate: 20 bpm SpO2: 96% Tempera ture: 37.0 (C) / 98.6 (F) Weight: 172 lbs 01/25/2019 Blood Pressure 1: 132/80 Code: 8480-6 BMI: 29.7 Code: 57788-2 Heart Rate 1: 84 bpm Height: 5'4" Respiratory Rate: 22 bpm SpO2: 98% Tempera ture: 36.9 (C) / 98.4 (F) Weight: 173 lbs 01/03/2019 Blood Pressure 1: 116/70 Code: 8480-6 BMI: 29.5 Code: 29274-4 Heart Rate 1: 92 bpm Height: 5'4" Respiratory Rate: 24 bpm SpO2: 98% Tempera ture: 37.2 (C) / 98.9 (F) Weight: 172 lbs 11/21/2018 Blood Pressure 1: 146/82 Code: 8480-6 BMI: 28.2 Code: 60410-6 Heart Rate 1: 88 bpm Height: 5'4" Respiratory Rate: 22 bpm SpO2: 97% Tempera ture: 36.9 (C) / 98.4 (F) Weight: 164 lbs 10/27/2018 Blood Pressure 1: 122/70 Code: 8480-6 BMI: 27.6 Code: 35290-4 Heart Rate 1: 88 bpm Height: 5'4" Respiratory Rate: 20 bpm SpO2: 96% Tempera ture: 36.8 (C) / 98.3 (F) Weight: 161 lbs 10/18/2018 Blood Pressure 1: 126/70 Code: 8480-6 BMI: 28.3 Code: 63326-6 Heart Rate 1: 76 bpm Height: 5'4" Respiratory Rate: 20 bpm SpO2: 95% Tempera ture: 37.0 (C) / 98.6 (F) Weight: 165 lbs 09/27/2018 Blood Pressure 1: 124/78 Code: 8480-6 BMI: 27.1 Code: 41847-1 Heart Rate 1: 88 bpm Height: 5'4" Respiratory Rate: 20 bpm SpO2: 98% Tempera ture: 36.4 (C) / 97.6 (F) Weight: 158 lbs 09/14/2018 Blood Pressure 1: 140/72 Code: 8480-6 BMI: 26.1 Code: 97198-5 Heart Rate 1: 100 bpm Height: 5'4" Respiratory Rate: 20 bpm SpO2: 97% Tempera ture: 36.9 (C) / 98.4 (F) Weight: 152 lbs 09/06/2018 Blood Pressure 1: 156/82 Code: 8480-6 BMI: 26.3 Code: 04685-4 Heart Rate 1: 100 bpm Height: 5'4" Respiratory Rate: 28 bpm SpO2: 95% Tempera ture: 37.2 (C) / 98.9 (F) Weight: 153 lbs 08/16/2018 Blood Pressure 1: 130/78 Code: 8480-6 Heart Rate 1: 87 bpm Respiratory Rate: 24 bpm SpO2: 94% Temperature: 36.9 (C) / 98.4 (F) We ight: 147 lbs 8 oz 07/07/2018 Blood Pressure 1: 116/78 Code: 8480-6 BMI: 22.7 Code: 25176-3 Heart Rate 1: 88 bpm Height: 5'4" Respiratory Rate: 22 bpm SpO2: 98% Tempera ture: 36.5 (C) / 97.7 (F) Weight: 132 lbs 05/31/2018 Blood Pressure 1: 128/78 Code: 8480-6 BMI: 22.3 Code: 92171-9 Heart Rate 1: 92 bpm Height: 5'4" Respiratory Rate: 26 bpm SpO2: 94% Tempera ture: 36.7 (C) / 98.1 (F) Weight: 130 lbs 03/31/2018 Blood Pressure 1: 136/78 Code: 8480-6 BMI: 21.5 Code: 43009-9 Heart Rate 1: 76 bpm Height: 5'4" Respiratory Rate: 24 bpm SpO2: 95% Tempera ture: 36.8 (C) / 98.3 (F) Weight: 125 lbs 01/26/2018 Blood Pressure 1: 142/64 Code: 8480-6 BMI: 20.6 Code: 36330-9 Heart Rate 1: 90 bpm Height: 5'4" Respiratory Rate: 24 bpm SpO2: 92% Tempera ture: 36.3 (C) / 97.3 (F) Weight: 120 lbs 10/26/2017 Blood Pressure 1: 124/70 Code: 8480-6 BMI: 20.3 Code: 23124-2 Heart Rate 1: 76 bpm Height: 5'4" Respiratory Rate: 22 bpm SpO2: 94% Tempera ture: 36.7 (C) / 98.1 (F) Weight: 118 lbs 09/23/2017 Blood Pressure 1: 106/70 Code: 8480-6 BMI: 19.2 Code: 93379-6 Heart Rate 1: 76 bpm Height: 5'4" Respiratory Rate: 20 bpm SpO2: 94% Tempera ture: 36.8 (C) / 98.3 (F) Weight: 112 lbs 08/12/2017 Blood Pressure 1: 116/68 Code: 8480-6 BMI: 20.1 Code: 52264-1 Heart Rate 1: 80 bpm Height: 5'4" Respiratory Rate: 22 bpm SpO2: 95% Tempera ture: 36.8 (C) / 98.2 (F) Weight: 117 lbs 07/06/2017 Blood Pressure 1: 136/78 Code: 8480-6 BMI: 20.6 Code: 24757-1 Heart Rate 1: 76 bpm Height: 5'4" Respiratory Rate: 24 bpm SpO2: 96% Tempera ture: 36.8 (C) / 98.2 (F) Weight: 120 lbs 06/02/2017 Blood Pressure 1: 112/70 Code: 8480-6 Heart Rate 1: 92 bpm Height: 5'4" Respiratory Rate: 24 bpm SpO2: 95% Temperature: 37.0 (C) / 98.6 (F) Weight: 04/29/2017 Blood Pressure 1: 94/52 Code: 8480-6 BMI: 19.6 C ode: 50869-4 Heart Rate 1: 84 bpm Height: 5'4" [...] 92/58 Code: 8480-6 BMI: 19.2 C ode: 32137-2 Heart Rate 1: 84 bpm Height: 5'4" Respiratory Rate: 26 bpm SpO2: 95% Tempera ture: 36.7 (C) / 98.0 (F) Weight: 112 lbs 12/01/2016 Blood Pressure 1: 114/70 Code: 8480-6 BMI: 19.2 Code: 67913-4 Heart Rate 1: 96 bpm Height: 5'4" Respiratory Rate: 28 bpm SpO2: 93% Tempera ture: 38.3 (C) / 101.0 (F) Weight: 112 lbs 10/27/2016 Blood Pressure 1: 126/66 Code: 8480-6 BMI: 19.6 Code: 60336-1 Heart Rate 1: 92 bpm Height: 5'4" Respiratory Rate: 28 bpm SpO2: 90% Tempera ture: 36.8 (C) / 98.3 (F) Weight: 114 lbs 09/09/2016 Blood Pressure 1: 126/74 Code: 8480-6 Heart Rate 1: 104 bpm Height: 5'4" Respiratory Rate: 32 bpm SpO2: 88% Temperature: 37 .2 (C) / 99.0 (F) 08/26/2016 Blood Pressure 1: 134/82 Code: 8480-6 BMI: 22.0 Code: 18789-6 Heart Rate 1: 84 bpm Height: 5'4" Respiratory Rate: 24 bpm SpO2: 94% Tempera ture: 36.8 (C) / 98.3 (F) Weight: 128 lbs 05/21/2016 Blood Pressure 1: 142/80 Code: 8480-6 BMI: 21.6 Code: 52669-1 Heart Rate 1: 104 bpm Height: 5'4" Respiratory Rate: 22 bpm SpO2: 93% Tempera ture: 36.0 (C) / 96.8 (F) Weight: 126 lbs 03/25/2016 Blood Pressure 1: 126/62 Code: 8480-6 Heart Rate 1: 88 bpm Respiratory Rate: 20 bpm SpO2: 92% Temperature: 36.8 (C) / 98.3 (F) We ight: 130 lbs 01/23/2016 Blood Pressure 1: 146/82 Code: 8480-6 BMI: 24.1 Code: 53490-7 Heart Rate 1: 92 bpm Height: 5'3" Respiratory Rate: 22 bpm Temperature: 37 .1 (C) / 98.8 (F) Weight: 136 lbs 12/26/2015 Blood Pressure 1: 142/78 Code: 8480-6 BMI: 24.6 Code: 39681-7 Heart Rate 1: 78 bpm Height: 5'3" Respiratory Rate: 20 bpm Temperature: 36 .7 (C) / 98.1 (F) Weight: 139 lbs 12/03/2015 Blood Pressure 1: 126/60 Code: 8480-6 BMI: 24.6 Code: 76475-6 Heart Rate 1: 100 bpm Height: 5'3" Respiratory Rate: 28 bpm Temperature: 37 .6 (C) / 99.6 (F) Weight: 139 lbs 09/10/2015 Blood Pressure 1: 124/64 Code: 8480-6 BMI: 23.7 Code: 70881-0 Heart Rate 1: 88 bpm Height: 5'3" Respiratory Rate: 24 bpm SpO2: 95% Tempera ture: 36.4 (C) / 97.6 (F) Weight: 134 lbs 08/06/2015 Blood Pressure 1: 114/76 Code: 8480-6 BMI: 23.2 Code: 64539-2 Heart Rate 1: 88 bpm Height: 5'3" Respiratory Rate: 22 bpm Temperature: 36 .6 (C) / 97.9 (F) Weight: 131 lbs 07/18/2015 Blood Pressure 1: 144/78 Code: 8480-6 BMI: 23.7 Code: 70047-7 Heart Rate 1: 84 bpm Height: 5'3" Respiratory Rate: 20 bpm Temperature: 37 .2 (C) / 99.0 (F) Weight: 134 lbs 04/10/2015 Blood Pressure 1: 110/64 Code: 8480-6 Heart Rate 1: 80 bpm Height: Respiratory Rate: 20 bpm Temperature: 37.1 (C) / 98.8 (F) Weight: 03/05/2015 Blood Pressure 1: 136/80 Code: 8480-6 BMI: 23.9 Code: 32354-0 Heart Rate 1: 76 bpm Height: 5'3" Respiratory Rate: 24 bpm Temperature: 37 .0 (C) / 98.6 (F) Weight: 135 lbs 01/30/2015 Blood Pressure 1: 142/80 Code: 8480-6 BMI: 23.0 Code: 03162-5 Heart Rate 1: 96 bpm Height: 5'3" Respiratory Rate: 22 bpm Temperature: 36 .2 (C) / 97.2 (F) Weight: 130 lbs 01/02/2015 Blood Pressure 1: 124/70 Code: 8480-6 BMI: 23.4 Code: 12355-9 Heart Rate 1: 84 bpm Height: 5'3" Respiratory Rate: 24 bpm SpO2: 95% Tempera ture: 36.9 (C) / 98.5 (F) Weight: 132 lbs 10/03/2014 Blood Pressure 1: 106/68 Code: 8480-6 BMI: 22.5 Code: 08887-8 Heart Rate 1: 88 bpm Height: 5'3" Respiratory Rate: 24 bpm Temperature: 37 .0 (C) / 98.6 (F) Weight: 127 lbs 08/27/2014 Blood Pressure 1: 124/68 Code: 8480-6 BMI: 21.1 Code: 93784-0 Heart Rate 1: 88 bpm Height: 5'3" [...] 1: 120/70 Code: 8480-6 BMI: 19.2 Code: 96515-8 Heart Rate 1: 70 bpm Height: 5'4" Respiratory Rate: 20 bpm Temperature: 36 .9 (C) / 98.4 (F) Weight: 112 lbs 06/28/2013 Blood Pressure 1: 102/ Code: 8480-6 BMI: 19.6 Code: 65192-8 Heart Rate 1: 76 bpm Height: 5'4" Respiratory Rate: 20 bpm Temperature: 36 .8 (C) / 98.2 (F) Weight: 114 lbs 05/31/2013 Blood Pressure 1: 106/ Code: 8480-6 BMI: 18.9 Code: 16914-1 Heart Rate 1: 100 bpm Height: 5'4" Respiratory Rate: 20 bpm Temperature: 36 .4 (C) / 97.6 (F) Weight: 110 lbs 05/03/2013 Blood Pressure 1: 126/ Code: 8480-6 BMI: 19.1 Code: 92106-3 Heart Rate 1: 88 bpm Height: 5'4" Respiratory Rate: 20 bpm Temperature: 37 .1 (C) / 98.8 (F) Weight: 111 lbs 04/25/2013 Blood Pressure 1: 114 Code: 8480-6 BMI: 19.4 Code: 35701-5 Heart Rate 1: 92 bpm Height: 5'4" Respiratory Rate: 24 bpm SpO2: 96% Tempera ture: 37.7 (C) / 99.8 (F) Weight: 113 lbs 03/08/2013 Blood Pressure 1: 94 Code: 8480-6 BMI: 21.3 C ode: 15654-4 Heart Rate 1: 88 bpm Height: 5'4" Respiratory Rate: 24 bpm Temperature: 37 .0 (C) / 98.6 (F) Weight: 124 lbs 02/07/2013 Blood Pressure 1: 106/ Code: 8480-6 BMI: 21.8 Code: 17672-6 Heart Rate 1: 84 bpm Height: 5'4" Respiratory Rate: 22 bpm Temperature: 36 .8 (C) / 98.2 (F) Weight: 127 lbs 01/10/2013 Blood Pressure 1: 122/68 Code: 8480-6 BMI: 21.6 Code: 71090-2 Heart Rate 1: 94 bpm Height: 5'4" SpO2: 94% Temperature: 36.7 (C) / 98.1 (F) Weight: 126 lbs 09/28/2012 Blood Pressure 1: 124/78 Code: 8480-6 BMI: 24.9 Code: 72425-6 Heart Rate 1: 92 bpm Height: 5'4" Respiratory Rate: 20 bpm Temperature: 36 .7 (C) / 98.1 (F) Weight: 145 lbs 06/28/2012 Blood Pressure 1: 134/80 Code: 8480-6 BMI: 24.9 Code: 21094-9 Heart Rate 1: 76 bpm Height: 5'4" Respiratory Rate: 20 bpm Temperature: 36 .8 (C) / 98.2 (F) Weight: 145 lbs 05/03/2012 Blood Pressure 1: 108/62 Code: 8480-6 BMI: 25.6 Code: 24114-6 Heart Rate 1: 88 bpm Height: 5'4" Temperature: 36.2 (C) / 97.2 (F) Weight: 149 lbs 03/01/2012 Blood Pressure 1: 124/66 Code: 8480-6 BMI: 25.1 Code: 15876-7 Heart Rate 1: 76 bpm Height: 5'4" Respiratory Rate: 20 bpm Temperature: 36 .6 (C) / 97.9 (F) Weight: 146 lbs 01/26/2012 Blood Pressure 1: 118/82 Code: 8480-6 BMI: 25.1 Code: 63357-3 Heart Rate 1: 74 bpm Height: 5'4" Temperature: 36.8 (C) / 98.2 (F) Weight: 146 lbs 11/03/2011 Blood Pressure 1: 126/80 Code: 8480-6 BMI: 27.3 Code: 18980-0 Heart Rate 1: 72 bpm Height: 5'4" [...] Dates Notes follow up 11/29/2019 Discuss pneumonia venkatesh hernández [...] prozac Encounters Encounter Performer Location Codes Date ([id number]) OFFICE/OUTPATIENT VISIT EST Diagnosis: Chronic pain syndrome[ICD10: G89.4] Diagnosis: Localized edema[ICD10: R60.0] Diagnosis: Chronic obstructive pulmonary disease, unspecified[ICD10: J44.9] Diagnosis: Other fatigue[ICD10: R53.83] Diagnosis: Muscle weakness (generalized)[ICD10: M62.81] Diagnosis: Spinal stenosis, lumbar region with neurogenic claudication[ICD10: M48.062] Vika RENTERIA DO [facility] CPT-4: 15011 11/29/2019 ([id number]) OFFICE/OUTPATIENT VISIT EST Diagnosis: Chronic pain syndrome[ICD10: G89.4] Diagnosis: Lumbar degenerative disc disease[ICD10: M51.36] Diagnosis: Muscle spasm[ICD10: M62.838] Diagnosis: Spinal stenosis, lumbar region with neurogenic claudication[ICD10: M48.062] Diagnosis: Spondylosis without myelopathy or radiculopathy, 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] Vika RENTERIA RT [employer] [facility] CPT-4: 30530 10/30/2019 ([id number]) OFFICE/OUTPATIENT VISIT EST Diagnosis: Chronic pain syndrome[ICD10: G89.4] Vika RENTERIA [facility] [employer] [facility] CPT-4: 26294 10/25/2019 ([id number]) OFFICE/OUTPATIENT VISIT EST Diagnosis: Epigastric pain[ICD10: R10.13] Diagnosis: Nausea[ICD10: R11.0] Diagnosis: Chronic obstructive pulmonary disease, unspecified[ICD10: J44.9] Vika RENTERIA [facility] [employer] [facility] CPT-4: 22693 07/26/2019 ([id number]) OFFICE/OUTPATIENT VISIT EST Diagnosis: Chronic obstructive pulmonary disease with (acute) exacerbation[ICD10: J44.1] Diagnosis: Chronic respiratory failure with hypoxia[ICD10: J96.11] Diagnosis: Other fatigue[ICD10: R53.83] Diagnosis: Edema, unspecified[ICD10: R60.9] Vika RENTERIA [facility] [employer] [facility] CPT-4: 31825 07/19/2019 ([id number]) OFFICE/OUTPATIENT VISIT EST Diagnosis: Chronic obstructive pulmonary disease with acute lower respiratory infection[ICD10: J44.0] Vika RENTERIA [employer]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
--- OUTSIDE RECORDS SUMMARY | 2020-04-24 23:15 | XMS REPORT | CCD ---
Author Author Yana Renteria D.O. Organization [facility] Address [address] [place] [address] Phone Care Team Providers Care Financial Investment Manager Name Role Phone Vika Renteria D.O., PP Unavailable CCM Unavailable Summary Purpose Interface Exchange Insurance Providers Payer name Policy type / Coverage type Covered green party ID Effective Begin Date Effective End Date [employer] [facility] [place] Medicaid [id number] 2018 U nknown Family History Family History data not found Social History Social History Element Codes Description Effective Dates Marital status Unknown 06/28/[address]: [id number] Currently smokes tobacco 05/2013 Allergies, Adverse Reactions, [...] MS Contin 200 mg tablet,extended release RxNorm: 644207 1 Tablet(s) Oral two times a day 01/02/2020 01/31/2020 Active Pulmicort 1 mg/2 mL suspension for nebulization RxNorm: 6168 19 USE ONE VIAL VIA NEBULIZER BY MOUTH TWICE A DAY 12/21/2019 No Stop Date Active furosemide 40 mg tablet RxNorm: 760858 TAKE ONE TABLET BY MOUTH EVERY MORNING NEEDED 12/20/2019 No Stop Date Active levothyroxine 25 mcg tablet RxNorm: 692444 TAKE ONE TAB LET BY MOUTH EVERY MORNING 12/20/2019 No Stop Date Active MS Contin 200 mg tablet,extended release RxNorm: 305428 1 Tablet(s) Oral two times a day 12/05/2019 01/01/2020 Inactive Medrol (Aníbal) 4 mg tablets in a dose pack RxNorm: 098757 6 Tablet(s) Oral QD --then as directed 11/30/2019 12/05/2019 Inactive MS Contin 200 mg tablet,extended release RxNorm: 261030 1 Tablet(s) Oral two times a day 11/29/2019 12/04/2019 Inactive cyclobenzaprine 10 mg tablet RxNorm: 983716 TAKE ONE TA BLET BY MOUTH THREE TIMES A DAY NEEDED 11/21/2019 No Stop Date Active MS Contin 200 mg tablet,extended release RxNorm: 332134 1 Tablet(s) Oral two times a day replaces 100mg dose 11/03/2019 11/02/2019 Inactive MS Contin 200 mg tablet,extended release RxNorm: 247717 1 Tablet(s) Oral two times a day replaces 100mg dose 11/03/2019 11/29/2019 Inactive ferrous sulfate 325 mg (65 mg iron) tablet RxNorm: 393075 1 Tab let(s) Oral QD 10/30/2019 No Stop Date Active MS Contin 100 mg tablet,extended release RxNorm: 477346 1 Table t(s) Oral QD 10/30/2019 10/29/2019 Inactive MS Contin 100 mg tablet,extended release RxNorm: 616357 1 Table t(s) Oral QD 10/30/2019 11/02/2019 Inactive Relistor 150 mg tablet RxNorm: 4362903 TAKE THREE TABLETS BY BENOIT TH DAILY 10/25/2019 No Stop Date Active pantoprazole 40 mg tablet,delayed release RxNorm: 996404 1 Tabl et(s) Oral QD 10/25/2019 No Stop Date Active metformin 500 mg tablet RxNorm: 691179 1 Tablet(s) Oral QD 10/25/20 19 No Stop Date Active Minipress 2 mg capsule RxNorm: 312433 1 Capsule(s) Oral QAM and 3 at bedtime 10/25/2019 No Stop Date Active Lancets, Super Thin RxNorm: 1 Unit Dose Miscellaneous QD 9 11/27/2020 Active Cymbalta 60 mg capsule,delayed release RxNorm: 992069 1 Capsule (s) Oral QAM 10/25/2019 No Stop Date Active Cymbalta 30 mg capsule,delayed release RxNorm: 504902 1 Capsule (s) Oral QAM 10/25/2019 No Stop Date Active oxycodone 15 mg tablet RxNorm: 9600111 1 Tablet(s) Oral four times a day as needed for pain 10/25/2019 11/28/2019 Inactive levothyroxine 25 mcg tablet RxNorm: 518052 1 Tablet(s) Oral QAM 02/201912/19/2019 Inactive levothyroxine 25 mcg tablet RxNorm: 354082 1 Tablet(s) Oral QAM 02/201910/24/2019 Inactive MS Contin 100 mg tablet,extended release RxNorm: 036653 1 Tablet(s) Oral two times a day replaces fentanyl 10/25/2019 10/25/2019 Inactive Premarin 0.45 mg tablet RxNorm: 028992 TAKE ONE TABLET BY MOUTH DAILY 10/24/2019 No Stop Date Active Duragesic 100 mcg/hr transdermal patch RxNorm: 665864 2 Application TD Q48H for pain 10/18/2019 10/24/2019 Inactive gabapentin 300 mg capsule RxNorm: 977713 TAKE ONE CAPSULE BY MO UTH TWICE A DAY 10/16/2019 No Stop Date Active cyclobenzaprine 10 mg tablet RxNorm: 989663 TAKE ONE TA BLET BY MOUTH THREE TIMES A DAY NEEDED 09/27/2019 11/20/2019 Inactive ProAir HFA 90 mcg/actuation aerosol inhaler RxNorm: 518535 INHALE ONE PUFF BY MOUTH EVERY 4 HOURS FOR WHEEZING OR FOR SHORTNESS OF BREATH 09/25/2019 No Stop Date Active Relistor 150 mg tablet RxNorm: 6335837 TAKE THREE TABLETS BY BENOIT TH DAILY 09/25/2019 10/24/2019 Inactive furosemide 40 mg tablet RxNorm: 813990 1 Tablet(s) Oral QAM as needed 09/25/2019 09/25/2019 Inactive oxycodone 15 mg tablet RxNorm: 9553269 1 Tablet(s) PO QID as nee ded for pain 09/21/2019 10/24/2019 Inactive Duragesic 100 mcg/hr transdermal patch RxNorm: 324764 2 Application TD Q48H for pain 09/19/2019 10/17/2019 Inactive Daliresp 500 mcg tablet RxNorm: 7717043 1 Tablet(s) Oral QD 019 03/08/2020 Active potassium chloride ER 20 mEq tablet,extended release RxNorm: 646457 TAKE ONE TABLET BY MOUTH DAILY 07/25/2019 01/20/2020 Active Relistor 150 mg tablet RxNorm: 7212542 TAKE THREE TABLETS BY BENOIT TH DAILY 07/25/2019 07/30/2019 Inactive cyclobenzaprine 10 mg tablet RxNorm: 632058 TAKE ONE TA BLET BY MOUTH THREE TIMES A DAY NEEDED 07/25/2019 09/22/2019 Inactive fluoxetine 40 mg capsule RxNorm: 012760 TAKE ONE CAPSULE BY BEONIT TH EVERY MORNING 07/11/2019 10/24/2019 Inactive Medrol (Aníbal) 4 mg tablets in a dose pack RxNorm: 422490 6 Tablet(s) PO QD --then as directed 07/10/2019 07/15/2019 Inactive omeprazole 40 mg capsule,delayed release RxNorm: 535721 1 Capsule(s) PO QD for stomach TAKE ONE CAPSULE BY MOUTH DAILY 07/10/2019 10/24/2019 Inactive Augmentin 875 mg-125 mg tablet RxNorm: 793944 1 Tablet(s) PO BID 07/16/2019 Inactive Trulicity 0.75 mg/0.5 mL subcutaneous pen injector RxNorm: 1 606513 0.75 Milliliter(s) SQ weekly 07/05/2019 10/24/2019 Inactive Compazine 10 mg tablet RxNorm: 032304 TAKE ONE TABLET B Y MOUTH FOUR TIMES A DAY NEEDED FOR NAUSEA 06/20/2019 07/19/2019 Inactive ProAir HFA 90 mcg/actuation aerosol inhaler RxNorm: 955374 INHALE ONE PUFF BY MOUTH EVERY 4 HOURS FOR WHEEZING OR FOR SHORTNESS OF BREATH 06/20/2019 06/23/2019 Inactive Daliresp 500 mcg tablet RxNorm: 5892214 TAKE ONE TABLET BY MOUTH DAILY 06/12/2019 09/10/2019 Inactive zgzmmqfn-mzdugihke-nfiluywku 3.5 mg/mL-10,000 unit/mL- 1 % ear solution RxNorm: 942871 4 Drop(s) otic (ear) TID to left ear 06/05/2019 10/24/2019 Inac tive furosemide 40 mg tablet RxNorm: 422798 TAKE ONE TABLET BY MOUTH EVERY MORNING 05/26/2019 07/09/2019 Inactive Duragesic 100 mcg/hr transdermal patch RxNorm: 041943 2 Application TD Q48H for pain 05/16/2019 06/14/2019 Inactive oxycodone 15 mg tablet RxNorm: 2246576 1 Tablet(s) PO QID as nee ded for pain 05/10/2019 09/20/2019 Inactive doxycycline hyclate 100 mg capsule RxNorm: 9012707 1 Capsule(s) PO BID 05/03/2019 05/12/2019 Inactive prednisone 20 mg tablet RxNorm: 119140 1 Tablet(s) PO T ID for 3 days then 1 po BID for 3 days then one daily for 3 days 05/03/2019 07/11/2019 Inactiv e Ozempic 0.25 mg or 0.5 mg (2 mg/1.5 mL) subcutaneous p en injector RxNorm: 9769362 0.5 Milligram(s) SQ QW 05/03/2019 07/09/2019 Inactive fluconazole 100 mg tablet RxNorm: 832447 1 Tablet(s) PO QD 05/03/2005/07/2019 Inactive Premarin 0.45 mg tablet RxNorm: 541862 TAKE ONE TABLET BY MOUTH DAILY 05/03/2019 10/23/2019 Inactive potassium chloride ER 20 mEq tablet,extended release RxNorm: 331721 1 Tablet(s) PO QD 04/27/2019 07/25/2019 Inactive potassium chloride ER 20 mEq tablet,extended release RxNorm: 176309 1 Tablet(s) PO QD 04/25/2019 04/26/2019 Inactive Compazine 10 mg tablet RxNorm: 811191 1 Tablet(s) PO QID as nee ded for nausea 04/25/2019 05/04/2019 Inactive ProAir HFA 90 mcg/actuation aerosol inhaler RxNorm: 297932 INHALE ONE PUFF BY MOUTH EVERY 4 HOURS FOR WHEEZING OR FOR SHORTNESS OF BREATH 04/12/2019 06/10/2019 Inactive Medrol (Aníbal) 4 mg tablets in a dose pack RxNorm: 030468 6 Tablet(s) PO QD --then as directed 04/11/2019 04/16/2019 Inactive Symbicort 160 mcg-4.5 mcg/actuation HFA aerosol inhaler RxNo rm: 0303616 2 Puff(s) INH BID 04/10/2019 10/06/2019 Inactive levothyroxine 50 mcg tablet RxNorm: 247804 1 Tablet(s) PO QD 201810/24/2019 Inactive gabapentin 300 mg capsule RxNorm: 556163 1 Capsule(s) PO BID 201810/02/2019 Inactive Symbicort 160 mcg-4.5 mcg/actuation HFA aerosol inhaler RxNo rm: 0449903 2 Puff(s) INH BID 04/06/2019 04/09/2019 Inactive oxycodone 15 mg tablet RxNorm: 0381440 1 Tablet(s) PO QID as nee ded for pain 04/05/2019 05/09/2019 Inactive levothyroxine 50 mcg tablet RxNorm: 840223 1 Tablet(s) PO QD 201804/09/2019 Inactive furosemide 40 mg tablet RxNorm: 622651 TAKE ONE TABLET BY MOUTH EVERY MORNING 03/21/2019 04/19/2019 Inactive levothyroxine 50 mcg tablet RxNorm: 056185 TAKE ONE TABLET BY M OUTH DAILY 03/21/2019 03/27/2019 Inactive Duragesic 100 mcg/hr transdermal patch RxNorm: 193468 2 Application TD Q48H for pain 03/13/2019 04/11/2019 Inactive oxycodone 15 mg tablet RxNorm: 9191863 1 Tablet(s) PO QID as nee ded for pain 03/06/2019 04/04/2019 Inactive Relistor 150 mg tablet RxNorm: 9372667 3 Tablet(s) PO QD 02/28/2019 0 05/28/2019 Inactive cyclobenzaprine 10 mg tablet RxNorm: 907817 1 Tablet(s) PO TID as needed 02/28/2019 05/28/2019 Inactive phentermine 37.5 mg tablet RxNorm: 724477 1 Tablet(s) PO QAM 201803/15/2019 Inactive Duragesic 100 mcg/hr transdermal patch RxNorm: 033781 2 Application TD Q48H for pain 02/09/2019 03/10/2019 Inactive Daliresp 500 mcg tablet RxNorm: 8248099 TAKE ONE TABLET BY MOUTH DAILY 01/31/2019 05/30/2019 Inactive Premarin 0.45 mg tablet RxNorm: 164550 1 Tablet(s) PO QD 01/31/2019 0 04/30/2019 Inactive fluoxetine 40 mg capsule RxNorm: 308282 Capsule(s) TAKE ONE CAPSULE BY MOUTH EVERY MORNING 01/31/2019 04/30/2019 Inactive levothyroxine 50 mcg tablet RxNorm: 462063 1 Tablet(s) PO QD 201804/10/2019 Inactive follow up in 3 weeks levothyroxine 50 mcg tablet RxNorm: 769016 1 Tablet(s) PO QD 201801/25/2019 Inactive follow up in 3 weeks potassium chloride ER 20 mEq tablet,extended release RxNorm: 921880 2 Tablet(s) PO BID 01/23/2019 02/14/2019 Inactive Synthroid 50 mcg tablet RxNorm: 756863 TAKE ONE TABLET BY MOUTH DAILY 01/16/2019 10/24/2019 Inactive potassium chloride ER 20 mEq tablet,extended release RxNorm: 485320 2 Tablet(s) PO BID 01/04/2019 01/22/2019 Inactive ProAir HFA 90 mcg/actuation aerosol inhaler RxNorm: 191263 INHALE ONE PUFF BY MOUTH EVERY 4 HOURS FOR WHEEZING OR SHORTNESS OF BREATH 01/04/201902/20 Inactive Request already responded to by other me ans (e.g. phone or fax) ProAir HFA 90 mcg/actuation aerosol inhaler RxNorm: 3718168 INHALE ONE PUFF BY MOUTH EVERY 4 HOURS FOR WHEEZING OR SHORTNESS OF BREATH 01/02/201912/23 Inactive gabapentin 300 mg capsule RxNorm: 883081 TAKE ONE CAPSULE BY MO UTH TWICE A DAY 12/30/2018 04/06/2019 Inactive furosemide 40 mg tablet RxNorm: 987995 1 Tablet(s) PO QAM 12/26/2018 02/23/2019 Inactive Compazine 10 mg tablet RxNorm: 270848 1 Tablet(s) PO QID as nee ded for nausea 12/07/2018 12/16/2018 Inactive metolazone 2.5 mg tablet RxNorm: 491442 TAKE ONE TABLET BY MOUT H EVERY MORNING 12/05/2018 01/03/2019 Inactive metformin ER 500 mg tablet,extended release 24 hr RxNorm: 86 0975 TAKE ONE TABLET BY MOUTH DAILY 12/05/2018 04/10/2019 Inactive Synthroid 50 mcg tablet RxNorm: 296429 1 Tablet(s) PO QD 11/25/2018 0 01/03/2019 Inactive DC any other synthroid strengths. Should be 50mcg only cyclobenzaprine 10 mg tablet RxNorm: 010948 TAKE ONE TA BLET BY MOUTH THREE TIMES A DAY NEEDED 11/09/2018 02/06/2019 Inactive metolazone 2.5 mg tablet RxNorm: 021172 1 Tablet(s) PO QAM repl aces 5mg dose 11/02/2018 12/01/2018 Inactive potassium chloride ER 20 mEq tablet,extended release RxNorm: 065299 2 Tablet(s) PO QD 2018 01/02/2019 Inactive Compazine 10 mg tablet RxNorm: 186190 1 Tablet(s) PO QID as nee ded for nausea 10/18/2018 12/07/2018 Inactive furosemide 40 mg tablet RxNorm: 667112 1 Tablet(s) PO QAM 10/12/2018 12/10/2018 Inactive ondansetron 8 mg disintegrating tablet RxNorm: 536037 1 Tablet(s) PO Q6H as needed 10/11/2018 10/17/2018 Inactive scopolamine 1 mg over 3 days transdermal patch RxNorm: 71707 2 1 Application TD behind ear. Take off after three days 10/11/2018 01/02/2019 Inactive furosemide 40 mg tablet RxNorm: 584006 1 Tablet(s) PO QAM 10/10/2018 12/26/2018 Inactive metolazone 5 mg tablet RxNorm: 306537 1 Tablet(s) PO QAM 10/06/2018 1 01/03/2018 Inactive metolazone 5 mg tablet RxNorm: 163949 1 Tablet(s) PO QAM 10/06/2018 1 12/05/2017 Inactive Xtampza ER 36 mg capsule sprinkle RxNorm: 9685766 1 Capsule(s) P O BID 10/05/2018 01/02/2019 Inactive Xtampza ER 36 mg capsule sprinkle RxNorm: 4289684 1 Capsule(s) P O BID 10/05/2018 02/12/2019 Inactive omeprazole 40 mg capsule,delayed release RxNorm: 306878 TAKE ONE CAPSULE BY MOUTH DAILY 10/03/2018 12/31/2018 Inactive Duragesic 100 mcg/hr transdermal patch RxNorm: 227532 2 Application TD Q48H for pain 09/30/2018 10/29/2018 Inactive Synthroid 50 mcg tablet RxNorm: 722693 1 Tablet(s) PO QD 09/29/2018 0 11/25/2018 Inactive DC any other synthroid strengths. Should be 50mcg only Synthroid 50 mcg tablet RxNorm: 666857 1 Tablet(s) PO QD 09/29/2018 1 11/28/2017 Inactive furosemide 40 mg tablet RxNorm: 235444 2 Tablet(s) PO Q AM for 1 week then every other day for 2 weeks 09/27/2018 10/12/2018 Inactive fluoxetine 40 mg capsule RxNorm: 745747 2 Capsule(s) PO QD 09/27/20 18 10/17/2018 Inactive potassium chloride ER 20 mEq tablet,extended release RxNorm: 561977 2 Tablet(s) PO QD for 1 week then every other day for 2 weeks 09/27/2018 2018 Inactive ProAir HFA 90 mcg/actuation aerosol inhaler RxNorm: 5262494 INHALE ONE PUFF BY MOUTH EVERY 4 HOURS FOR WHEEZING OR SHORTNESS OF BREATH 09/26/201811/23 Inactive Synthroid 75 mcg tablet RxNorm: 504550 1 Tablet(s) PO QD 09/09/2018 1 Inactive Synthroid 75 mcg tablet RxNorm: 790237 1 Tablet(s) PO QD 09/09/2018 1 11/28/2017 Inactive furosemide 40 mg tablet RxNorm: 264022 1 Tablet(s) PO QD 09/06/2018 1 Inactive potassium chloride ER 20 mEq tablet,extended release RxNorm: 929043 1 Tablet(s) PO QD 09/06/2018 09/19/2018 Inactive Duragesic 100 mcg/hr transdermal patch RxNorm: 270226 2 Application TD Q48H for pain 08/30/2018 09/28/2018 Inactive gabapentin 300 mg capsule RxNorm: 169370 TAKE ONE CAPSULE BY [facility] TWICE A DAY 08/23/2018 12/20/2018 Inactive Daliresp 500 mcg tablet RxNorm: 4327386 TAKE ONE TABLET BY MOUTH DAILY 08/23/2018 01/19/2019 Inactive Pulmicort 1 mg/2 mL suspension for nebulization RxNorm: 6168 19 USE ONE VIAL VIA NEBULIZER BY MOUTH TWICE A DAY 08/23/2018 07/11/2019 Inactive Synthroid 88 mcg tablet RxNorm: 958777 1 Tablet(s) PO QD 08/19/2018 Inactive Medrol (Aníbal) 4 mg tablets in a dose pack RxNorm: 235064 Tablet(s) PO take as directed 08/16/2018 09/05/2018 Inactive Relistor 150 mg tablet RxNorm: 7912250 3 Tablet(s) PO QD 08/16/2018 1 Inactive Zithromax Z-Aníbal 250 mg tablet RxNorm: 711383 Tablet(s) PO take as directed 08/16/2018 09/05/2018 Inactive cyclobenzaprine 10 mg tablet RxNorm: 969638 1 Tablet(s) PO TID as needed 08/16/2018 11/08/2018 Inactive Synthroid 88 mcg tablet RxNorm: 072195 1 Tablet(s) PO Q D NEEDS UPDATED LABS BEFORE FURTHER REFILLS 08/08/2018 08/19/2018 Inactive Premarin 0.45 mg tablet RxNorm: 136397 1 Tablet(s) PO QD 08/03/2018 0 01/31/2019 Inactive fluoxetine 20 mg capsule RxNorm: 151213 TAKE ONE CAPSULE BY BENOIT TH DAILY 08/03/2018 09/26/2018 Inactive Xtampza ER 36 mg capsule sprinkle RxNorm: 8423346 1 Capsule(s) P O BID 08/03/2018 09/01/2018 Inactive metformin ER 500 mg tablet,extended release 24 hr RxNorm: 86 0975 1 Tablet(s) PO QD 08/03/2018 10/31/2018 Inactive Symbicort 160 mcg-4.5 mcg/actuation HFA aerosol inhaler RxNo rm: 9515724 2 Puff(s) INH BID 08/03/2018 01/29/2019 Inactive Duragesic 100 mcg/hr transdermal patch RxNorm: 106082 2 Application TD Q48H for pain 07/29/2018 08/27/2018 Inactive ProAir HFA 90 mcg/actuation aerosol inhaler RxNorm: 679898 INHALE TWO PUFFS BY MOUTH EVERY 4 HOURS FOR WHEEZING OR SHORTNESS OF BREATH 07/27/201802/2018 Inactive Relistor 150 mg tablet RxNorm: 8533358 3 Tablet(s) PO QD 07/20/2018 0 08/15/2018 Inactive metformin ER 500 mg tablet,extended release 24 hr RxNorm: 86 0975 TAKE ONE TABLET BY MOUTH DAILY 07/08/2018 08/02/2018 Inactive fluoxetine 40 mg capsule RxNorm: 306515 TAKE ONE CAPSULE BY BENOIT TH EVERY MORNING 07/08/2018 10/05/2018 Inactive Xtampza ER 18 mg capsule sprinkle RxNorm: 2733235 1 Capsule(s) P O BID 07/08/2018 08/02/2018 Inactive Relistor 150 mg tablet RxNorm: 9892265 3 Tablet(s) PO QD 07/08/2018 0 07/12/2018 Inactive Synthroid 88 mcg tablet RxNorm: 259192 1 Tablet(s) PO Q D NEEDS UPDATED LABS BEFORE FURTHER REFILLS 06/23/2018 07/07/2018 Inactive fluoxetine 40 mg capsule RxNorm: 236952 TAKE ONE CAPSULE BY BENOIT EVERY MORNING 06/15/2018 09/26/2018 Inactive orphenadrine citrate ER 100 mg tablet,extended release RxNor m: 024974 TAKE ONE TABLET BY MOUTH TWICE A DAY FOR MUSCLE SPASM 06/15/2018 08/15/2018 [place] [facility] Duragesic 100 mcg/hr transdermal patch RxNorm: 167326 2 Application TD Q48H for pain 05/30/2018 06/28/2018 Inactive ProAir HFA 90 mcg/actuation aerosol inhaler RxNorm: 766844 INHALE TWO PUFFS BY MOUTH EVERY 4 HOURS FOR WHEEZING OR SHORTNESS OF BREATH 05/19/201803/2018 Inactive Chantix Continuing Month Box 1 mg tablet RxNorm: 532978 TAKE ONE TABLET BY MOUTH TWICE A DAY 05/19/2018 08/15/2018 Inactive oxycodone 10 mg tablet RxNorm: 1234010 1-2 Tablet(s) PO QID as n eeded for pain 05/19/2018 07/07/2018 Inactive gabapentin 300 mg capsule RxNorm: 857208 TAKE ONE CAPSULE BY MO HIH TWICE A DAY 05/18/2018 07/16/2018 Inactive ProAir HFA 90 mcg/actuation aerosol inhaler RxNorm: 536560 INHALE TWO PUFFS BY MOUTH EVERY 4 HOURS FOR WHEEZING OR SHORTNESS OF BREATH 05/04/201804/23 Inactive Augmentin 500 mg-125 mg tablet RxNorm: 794662 1 Tablet(s) PO BID 05/03/2018 Inactive oxycodone 10 mg tablet RxNorm: 2722525 1-2 Tablet(s) PO QID as n eeded for pain 04/21/2018 05/18/2018 Inactive Synthroid 88 mcg tablet RxNorm: 842283 1 Tablet(s) PO QD 04/15/2018 0 08/08/2018 Inactive Symbicort 160 mcg-4.5 mcg/actuation HFA aerosol inhaler RxNo rm: 7005040 2 Puff(s) INH BID 04/15/2018 04/10/2019 Inactive Premarin 0.45 mg tablet RxNorm: 876558 1 Tablet(s) PO QD 04/15/2018 0 08/03/2018 Inactive ProAir HFA 90 mcg/actuation aerosol inhaler RxNorm: 515425 2 Puff(s) INH Q4H prn for wheezing or shortness of breath 04/15/2018 05/03/2018 Inactive metformin ER 500 mg tablet,extended release 24 hr RxNorm: 86 0975 1 Tablet(s) PO QD 04/11/2018 07/07/2018 Inactive omeprazole 40 mg capsule,delayed release RxNorm: 022786 TAKE ONE CAPSULE BY MOUTH DAILY 04/10/2018 06/08/2018 Inactive Synthroid 88 mcg tablet RxNorm: 942382 1 Tablet(s) PO QD 04/04/2018 0 04/14/2018 Inactive Synthroid 88 mcg tablet RxNorm: 882932 1 Tablet(s) PO QD 04/04/2018 0 04/03/2018 Inactive orphenadrine citrate ER 100 mg tablet,extended release RxNor m: 741053 1 Tablet(s) PO BID for muscle spasm 04/04/2018 05/03/2018 Inactive metformin ER 500 mg tablet,extended release 24 hr RxNorm: 86 0975 1 Tablet(s) PO QD NEEDS UPDATED LABS 03/31/2018 04/11/2018 Inactive doxycycline hyclate 100 mg capsule RxNorm: 1368079 1 Capsule(s) PO BID 03/31/2018 04/09/2018 Inactive prednisone 20 mg tablet RxNorm: 830272 3 Tablet(s) PO T ID for 3 days then 1 po BID for 3 days then one daily for 3 days 03/31/2018 07/06/2018 Inactiv e Chantix Continuing Month Box 1 mg tablet RxNorm: 380422 TAKE ONE TABLET BY MOUTH TWICE A DAY 03/25/2018 03/30/2018 Inactive oxycodone 10 mg tablet RxNorm: 0573196 1-2 Tablet(s) PO QID as n eeded for pain 03/21/2018 04/20/2018 Inactive Daliresp 500 mcg tablet RxNorm: 4388559 1 Tablet(s) PO QD 03/15/2018 08/22/2018 Inactive metformin ER 500 mg tablet,extended release 24 hr RxNorm: 86 0975 1 Tablet(s) PO QD NEEDS UPDATED LABS 03/14/2018 03/31/2018 Inactive nystatin 100,000 unit/mL oral suspension RxNorm: 693088 5 [place] liter(s) PO QID 03/02/2018 03/15/2018 Inactive nystatin 100,000 unit/mL oral suspension RxNorm: 956814 5 [place] liter(s) PO QID 03/02/2018 03/01/2018 Inactive oxycodone 10 mg tablet RxNorm: 1218734 1-2 Tablet(s) PO QID as n eeded for pain 02/16/2018 03/20/2018 Inactive fluoxetine 20 mg capsule RxNorm: 783224 1 Capsule(s) PO QD 02/15/20 18 08/02/2018 Inactive metformin ER 500 mg tablet,extended release 24 hr RxNorm: 86 0975 1 Tablet(s) PO QD Needs updated labs 02/14/2018 03/14/2018 Inactive cefdinir 300 mg capsule RxNorm: 066023 1 Capsule(s) PO BID 01/27/20 18 02/04/2018 Inactive orphenadrine citrate ER 100 mg tablet,extended release RxNor m: 426971 1 Tablet(s) PO BID for muscle spasm 01/26/2018 04/04/2018 Inactive gabapentin 300 mg capsule RxNorm: 092722 1 Capsule(s) PO BID 201704/17/2018 Inactive oxycodone 10 mg tablet RxNorm: 3062301 1-2 Tablet(s) PO QID as n eeded for pain 01/17/2018 02/15/2018 Inactive Duragesic 100 mcg/hr transdermal patch RxNorm: 138163 2 Application TD Q48H for pain 01/17/2018 02/15/2018 Inactive gabapentin 300 mg capsule RxNorm: 391410 TAKE ONE CAPSULE BY MO [facility] TWICE A DAY 12/20/2017 01/18/2018 Inactive fluoxetine 40 mg capsule RxNorm: 693738 TAKE ONE CAPSULE BY BENOIT TH EVERY MORNING 12/15/2017 03/14/2018 Inactive OneTouch Ultra Test strips RxNorm: TEST DAILY 11/04/2017 02/01/2018 Inactive gabapentin 300 mg capsule RxNorm: 104171 1 Capsule(s) P O TID replaces BID dosing 10/26/2017 02/22/2018 Inactive oxycodone 10 mg tablet RxNorm: 6828726 1-2 Tablet(s) PO QID as n eeded for pain 10/18/2017 01/16/2018 Inactive Duragesic 100 mcg/hr transdermal patch RxNorm: 709894 2 Application TD Q48H for pain 10/18/2017 11/16/2017 Inactive gabapentin 300 mg capsule RxNorm: 464968 1 Capsule(s) PO BID 201610/25/2017 Inactive Abilify 5 mg tablet RxNorm: 560985 1 Tablet(s) PO QAM 09/23/201702/2017 Inactive gabapentin 300 mg capsule RxNorm: 824850 1 Capsule(s) PO BID 201610/17/2017 Inactive oxycodone 10 mg tablet RxNorm: 5317489 1-2 Tablet(s) PO QID as n eeded for pain 09/15/2017 10/17/2017 Inactive Duragesic 100 mcg/hr transdermal patch RxNorm: 582101 2 Application TD Q48H for pain 09/15/2017 10/14/2017 Inactive Duragesic 100 mcg/hr transdermal patch RxNorm: 532865 2 Application TD Q48H for pain 09/15/2017 10/24/2019 Inactive oxycodone 10 mg tablet RxNorm: 0237523 1-2 Tablet(s) PO QID as n eeded for pain 09/15/2017 08/15/2018 Inactive Daliresp 500 mcg tablet RxNorm: 6947320 1 Tablet(s) PO QD 09/06/2017 03/15/2018 Inactive Ventolin HFA 90 mcg/actuation aerosol inhaler RxNorm: 314231 2 Puff(s) INH Q4H as needed 09/02/2017 05/19/2018 Inactive oxycodone 10 mg tablet RxNorm: 1118745 1-2 Tablet(s) PO QID as n eeded for pain 08/17/2017 09/14/2017 Inactive Duragesic 100 mcg/hr transdermal patch RxNorm: 136680 2 Application TD Q48H for pain 08/17/2017 09/14/2017 Inactive fluoxetine 40 mg capsule RxNorm: 553999 Capsule(s) TAKE ONE CAPSULE BY MOUTH EVERY MORNING 08/17/2017 12/14/2017 Inactive Pulmicort 1 mg/2 mL suspension for nebulization RxNorm: 6168 19 1 Unit Dose INH BID Dx: COPD (J44.9) 08/16/2017 08/22/2018 Inactive gabapentin 300 mg capsule RxNorm: 917340 1 Capsule(s) PO QHS 201610/18/2017 Inactive fluoxetine 20 mg capsule RxNorm: 749158 1 Capsule(s) PO QD 08/12/20 17 02/14/2018 Inactive Abilify 2 mg tablet RxNorm: 460952 1 Tablet(s) PO QD TA KE ONE TABLET BY MOUTH DAILY 08/12/2017 10/25/2017 Inactive metformin ER 500 mg tablet,extended release 24 hr RxNorm: 86 0975 1 Tablet(s) PO QD 08/10/2017 02/14/2018 Inactive Synthroid 112 mcg tablet RxNorm: 027430 1 Tablet(s) PO QD 08/10/2017 04/15/2018 Inactive oxycodone 10 mg tablet RxNorm: 8697308 1-2 Tablet(s) PO QID as n eeded for pain 07/19/2017 08/16/2017 Inactive Duragesic 100 mcg/hr transdermal patch RxNorm: 873012 2 Application TD Q48H for pain 07/19/2017 08/16/2017 Inactive Ventolin HFA 90 mcg/actuation aerosol inhaler RxNorm: 624332 2 Puff(s) INH Q4H as needed 07/12/2017 09/02/2017 Inactive Abilify 2 mg tablet RxNorm: 306606 1 Tablet(s) PO QD TA KE ONE TABLET BY MOUTH DAILY 07/06/2017 08/11/2017 Inactive gabapentin 800 mg tablet RxNorm: 813756 1 Tablet(s) PO TID 06/22/20 17 07/05/2017 Inactive Chantix Starting Month Box 0.5 mg (11)-1 mg (42) table ts in dose pack RxNorm: 189113 TAKE BY MOUTH INSTRUCTED - PER PACKAGE INSTRUCTIONS 06/0707/04/2017 Inactive Ventolin HFA 90 mcg/actuation aerosol inhaler RxNorm: 693745 2 Puff(s) INH Q4H as needed 05/26/2017 07/12/2017 Inactive Duragesic 100 mcg/hr transdermal patch RxNorm: 443342 2 Application TD Q48H for pain 05/19/2017 06/17/2017 Inactive oxycodone 10 mg tablet RxNorm: 4466973 1-2 Tablet(s) PO QID as n eeded for pain 05/19/2017 07/18/2017 Inactive Abilify 2 mg tablet RxNorm: 075002 TAKE ONE TABLET BY MOUTH DAILY 0 05/10/2017 07/05/2017 Inactive Synthroid 112 mcg tablet RxNorm: 833192 1 Tablet(s) PO QD 05/06/2017 08/10/2017 Inactive metformin ER 500 mg tablet,extended release 24 hr RxNorm: 86 0975 1 Tablet(s) PO QD 05/06/2017 08/10/2017 Inactive Topamax 100 mg tablet RxNorm: 254710 1 Tablet(s) PO QHS 05/06/2017 Inactive Premarin 0.45 mg tablet RxNorm: 557018 1 Tablet(s) PO QD 05/06/2017 0 04/15/2018 Inactive orphenadrine citrate ER 100 mg tablet,extended release RxNor m: 374669 1 Tablet(s) PO TID for muscle spasm--replaces methocarbamol 04/29/2017 Inactive oxycodone 10 mg tablet RxNorm: 2449804 1-2 Tablet(s) PO QID as n eeded for pain 04/21/2017 05/18/2017 Inactive Duragesic 100 mcg/hr transdermal patch RxNorm: 671101 2 Application TD Q48H for pain 04/21/2017 05/18/2017 Inactive fluoxetine 40 mg capsule RxNorm: 043889 Capsule(s) TAKE ONE CAPSULE BY MOUTH EVERY MORNING 04/20/2017 08/17/2017 Inactive Ventolin HFA 90 mcg/actuation aerosol inhaler RxNorm: 435044 2 Puff(s) INH Q4H as needed 04/05/2017 05/26/2017 Inactive Symbicort 160 mcg-4.5 mcg/actuation HFA aerosol inhaler RxNo rm: 2389559 2 Puff(s) INH BID 03/30/2017 04/15/2018 Inactive Spiriva with HandiHaler 18 mcg and inhalation capsules RxNor m: 710144 1 Capsule(s) INH QD USING HANDIHALER 03/30/2017 02/12/2019 Inactive Duragesic 100 mcg/hr transdermal patch RxNorm: 917560 2 Application TD Q48H for pain 03/18/2017 04/16/2017 Inactive oxycodone 10 mg tablet RxNorm: 9317954 1-2 Tablet(s) PO QID as n eeded for pain 03/18/2017 04/20/2017 Inactive metformin ER 500 mg tablet,extended release 24 hr RxNorm: 86 0975 Tablet(s) TAKE ONE TABLET BY MOUTH DAILY 03/01/2017 05/06/2017 Inactive Premarin 0.45 mg tablet RxNorm: 008023 Tablet(s) TAKE ONE TABLE T BY MOUTH DAILY 03/01/2017 05/06/2017 Inactive Synthroid 112 mcg tablet RxNorm: 690432 Tablet(s) TAKE ONE TABLET BY MOUTH DAILY 03/01/2017 05/06/2017 Inactive Daliresp 500 mcg tablet RxNorm: 1513130 1 Tablet(s) PO QD 03/01/2017 09/06/2017 Inactive 16.2 mg-0.1037 mg-0.0194 mg tablet RxNorm: 6574733 Tablet(s) PO PRN for gas and cramping 02/23/2017 04/28/2017 Inactive TAKE TWO TABLET S BY MOUTH THREE TIMES A DAY NEEDED FOR GAS AND CRAMPING gabapentin 800 mg tablet RxNorm: 910420 1 Tablet(s) PO TID repl aces 600mg 02/23/2017 04/28/2017 Inactive Duragesic 100 mcg/hr transdermal patch RxNorm: 766001 2 Application TD Q48H for pain 02/17/2017 03/17/2017 Inactive fluoxetine 20 mg capsule RxNorm: 227694 1 Capsule(s) PO QD 02/18/20 17 08/12/2017 Inactive oxycodone 20 mg tablet RxNorm: 3008438 1 Tablet(s) PO QID as nee ded for pain 02/17/2017 03/17/2017 Inactive Ventolin HFA 90 mcg/actuation aerosol inhaler RxNorm: 510806 INHALE TWO PUFFS BY MOUTH EVERY 4 HOURS NEEDED 02/15/2017 04/05/2017 Inactive Silvadene 1 % topical cream RxNorm: 401776 1 Application TOP BI D to burn area 02/01/2017 09/22/2017 Inactive Topamax 100 mg tablet RxNorm: 358914 TAKE ONE TABLET BY MOUTH EVERY NIGHT AT BEDTIME 01/29/2017 05/06/2017 Inactive Chantix Starting Month Box 0.5 mg (11)-1 mg (42) table ts in dose pack RxNorm: 314680 Tablet(s) PO as directed 01/29/2017 06/01/2017 Inactive Abilify 2 mg tablet RxNorm: 093814 TAKE ONE TABLET BY MOUTH DAILY 0 01/26/2017 04/25/2017 Inactive Chantix Starting Month Box 0.5 mg (11)-1 mg (42) table ts in dose pack RxNorm: 195074 Tablet(s) PO as directed 01/20/2017 01/28/2017 Inactive gabapentin 600 mg tablet RxNorm: 064815 1 Tablet(s) PO TID 01/21/2002/22/2017 Inactive Chantix Continuing Month Box 1 mg tablet RxNorm: 000576 1 Table t(s) PO BID 12/31/2016 06/01/2017 Inactive Spiriva with HandiHaler 18 mcg and inhalation capsules RxNor m: 101607 INHALE THE ENTIRE CONTENTS OF 1 CAPSULE ONCE A DAY USING HANDIHALER 12/31/201607/2017 Inactive Synthroid 112 mcg tablet RxNorm: 752132 TAKE ONE TABLET BY MOUT H DAILY 12/30/2016 03/01/2017 Inactive metformin ER 500 mg tablet,extended release 24 hr RxNorm: 86 0975 TAKE ONE TABLET BY MOUTH DAILY 12/30/2016 03/01/2017 Inactive Premarin 0.45 mg tablet RxNorm: 473493 TAKE ONE TABLET BY MOUTH DAILY 12/30/2016 03/01/2017 Inactive omeprazole 40 mg capsule,delayed release RxNorm: 978705 TAKE ONE CAPSULE BY MOUTH DAILY 12/30/2016 01/25/2018 Inactive Ventolin HFA 90 mcg/actuation aerosol inhaler RxNorm: 057958 INHALE TWO PUFFS BY MOUTH EVERY 4 HOURS NEEDED 12/28/2016 02/13/2017 Inactive fluoxetine 40 mg capsule RxNorm: 759603 TAKE ONE CAPSULE BY BENOIT TH EVERY MORNING 12/15/2016 04/20/2017 Inactive Chantix Continuing Month Box 1 mg tablet RxNorm: 817663 TAKE ONE TABLET BY MOUTH TWICE A DAY 12/04/2016 12/31/2016 Inactive doxycycline hyclate 100 mg capsule RxNorm: 4530251 1 Capsule(s) PO BID 12/01/2016 12/07/2016 Inactive Levaquin 750 mg tablet RxNorm: 444427 1 Tablet(s) PO QD 12/01/2016 Inactive Abilify 2 mg tablet RxNorm: 655626 TAKE ONE TABLET BY MOUTH DAILY 0 11/25/2016 11/30/2016 Inactive Ventolin HFA 90 mcg/actuation aerosol inhaler RxNorm: 277696 INHALE TWO PUFFS BY MOUTH EVERY 4 HOURS NEEDED 11/02/2016 12/19/2016 Inactive Chantix Continuing Month Box 1 mg tablet RxNorm: 293138 Tablet(s) PO as directed 10/30/2016 12/03/2016 Inactive Symbicort 160 mcg-4.5 mcg/actuation HFA aerosol inhaler RxNo rm: 9776656 INHALE TWO PUFFS TWO TIMES A DAY 10/30/2016 03/30/2017 Inactive Abilify 2 mg tablet RxNorm: 608840 1 Tablet(s) PO QD 10/27/201611/24 Inactive amoxicillin 500 mg capsule RxNorm: 458771 1 Capsule(s) PO TID 10/1410/23/2016 Inactive amoxicillin 500 mg capsule RxNorm: 178504 1 Capsule(s) PO TID 10/1410/13/2016 Inactive Synthroid 112 mcg tablet RxNorm: 681649 TAKE ONE TABLET BY MOUT H DAILY 09/28/2016 12/29/2016 Inactive Topamax 100 mg tablet RxNorm: 009035 TAKE ONE TABLET BY MOUTH EVERY NIGHT AT BEDTIME 09/28/2016 01/28/2017 Inactive Premarin 0.45 mg tablet RxNorm: 246406 TAKE ONE TABLET BY MOUTH DAILY 09/28/2016 12/29/2016 Inactive metformin ER 500 mg tablet,extended release 24 hr RxNorm: 86 0975 TAKE ONE TABLET BY MOUTH DAILY 09/28/2016 12/29/2016 Inactive Ventolin HFA 90 mcg/actuation aerosol inhaler RxNorm: 868724 INHALE TWO PUFFS BY MOUTH EVERY 4 HOURS NEEDED 09/22/2016 10/23/2016 Inactive Pulmicort 1 mg/2 mL suspension for nebulization RxNorm: 6168 19 1 Unit Dose INH BID Dx: COPD (J44.9) 09/10/2016 08/16/2017 Inactive Pulmicort 1 mg/2 mL suspension for nebulization RxNorm: 6168 19 1 Unit Dose INH BID 09/10/2016 09/09/2016 Inactive Brovana 15 mcg/2 mL solution for nebulization RxNorm: 321013 1 Unit Dose INH BID Dx: COPD (J44.9) 09/10/2016 01/25/2018 Inactive Brovana 15 mcg/2 mL solution for nebulization RxNorm: 249359 1 Unit Dose INH BID 09/10/2016 09/09/2016 Inactive ipratropium-albuterol 0.5 mg-3 mg(2.5 mg base)/3 mL ne bulization soln RxNorm: 1201652 1 Unit Dose INH Q4H as needed Dx: COPD (J44.9) 09/10/2016 0 02/12/2019 Inactive orphenadrine citrate ER 100 mg tablet,extended release RxNor m: 604654 1 Tablet(s) PO BID for muscle spasm--replaces methocarbamol 09/09/2016 Inactive Chantix Continuing Month Box 1 mg tablet RxNorm: 221932 Tablet(s) PO as directed 09/09/2016 10/30/2016 Inactive orphenadrine citrate ER 100 mg tablet,extended release RxNor m: 764654 1 Tablet(s) PO BID for muscle spasm 09/09/2016 09/08/2016 Inactive Spiriva with HandiHaler 18 mcg and inhalation capsules RxNor m: 465689 INHALE THE ENTIRE CONTENTS OF 1 CAPSULE ONCE A DAY USING HANDIHALER 09/01/201605/2017 Inactive Daliresp 500 mcg tablet RxNorm: 6825584 1 Tablet(s) PO QD 08/27/2016 03/01/2017 Inactive prednisone 20 mg tablet RxNorm: 150255 3 Tablet(s) PO T ID for 3 days then 1 po BID for 3 days then one daily for 3 days 08/26/2016 04/28/2017 Inactiv e Wellbutrin XL 300 mg 24 hr tablet, extended release RxNorm: 331092 TAKE ONE TABLET BY MOUTH EVERY MORNING 07/29/2016 10/26/2016 Inactive gabapentin 600 mg tablet RxNorm: 532058 1 Tablet(s) PO BID 06/26/20 16 12/22/2016 Inactive fluoxetine 40 mg capsule RxNorm: 209199 TAKE ONE CAPSULE BY BENOIT TH EVERY MORNING 06/24/2016 11/20/2016 Inactive Duragesic 100 mcg/hr transdermal patch RxNorm: 893336 2 Application TD Q48H for pain 06/05/2016 07/04/2016 Inactive oxycodone 10 mg tablet RxNorm: 4649774 1-2 Tablet(s) PO QID as n eeded for pain 06/05/2016 03/17/2017 Inactive Belladonna-Phenobarbital 48 mg tablet,extended release RxNor m: 2 Tablet(s) PO TID 06/05/2016 01/19/2017 Inactive Premarin 0.45 mg tablet RxNorm: 005500 TAKE ONE TABLET BY MOUTH DAILY 05/27/2016 09/23/2016 Inactive Topamax 100 mg tablet RxNorm: 238467 TAKE ONE TABLET BY MOUTH EVERY NIGHT AT BEDTIME 05/27/2016 09/27/2016 Inactive Synthroid 112 mcg tablet RxNorm: 765594 TAKE ONE TABLET BY MOUT H DAILY 05/27/2016 09/23/2016 Inactive metformin ER 500 mg tablet,extended release 24 hr RxNorm: 86 0975 TAKE ONE TABLET BY MOUTH DAILY 05/27/2016 09/23/2016 Inactive Symbicort 160 mcg-4.5 mcg/actuation HFA aerosol inhaler RxNo rm: 4032332 INHALE TWO PUFFS TWO TIMES A DAY 05/27/2016 10/23/2016 Inactive Ventolin HFA 90 mcg/actuation aerosol inhaler RxNorm: 770091 INHALE TWO PUFFS BY MOUTH EVERY 4 HOURS NEEDED 05/21/2016 07/07/2016 Inactive omeprazole 40 mg capsule,delayed release RxNorm: 129356 1 Capsu le(s) PO QD 05/06/2016 08/03/2016 Inactive metformin ER 500 mg tablet,extended release 24 hr RxNorm: 86 0975 TAKE ONE TABLET BY MOUTH DAILY 04/23/2016 05/22/2016 Inactive methocarbamol 750 mg tablet RxNorm: 985712 2 Tablet(s) PO TID as needed for muscle spasm 04/23/2016 09/08/2016 Inactive Synthroid 112 mcg tablet RxNorm: 373050 TAKE ONE TABLET BY MOUT H DAILY 04/23/2016 05/22/2016 Inactive Spiriva with HandiHaler 18 mcg and inhalation capsules RxNor m: 424125 INHALE THE ENTIRE CONTENTS OF 1 CAPSULE ONCE A DAY USING HANDIHALER 04/09/201608/2016 Inactive Diflucan 100 mg tablet RxNorm: 995369 1 Tablet(s) PO QD 04/08/2016 Inactive doxycycline hyclate 100 mg capsule RxNorm: 7140656 1 Capsule(s) PO BID 04/08/2016 04/17/2016 Inactive doxycycline hyclate 100 mg capsule RxNorm: 7576859 1 Capsule(s) PO BID 04/08/2016 04/07/2016 Inactive Diflucan 100 mg tablet RxNorm: 289442 1 Tablet(s) PO QD 04/08/2016 Inactive ondansetron HCl 4 mg tablet RxNorm: 849496 1 Tablet(s) PO Q4H as needed for nausea and vomiting 04/08/2016 09/22/2017 Inactive gabapentin 600 mg tablet RxNorm: 585743 TAKE ONE TABLET BY MOUT H TWICE A DAY 03/24/2016 06/25/2016 Inactive Synthroid 112 mcg tablet RxNorm: 877197 TAKE ONE TABLET BY MOUT H DAILY 02/25/2016 04/22/2016 Inactive Levaquin 500 mg tablet RxNorm: 979276 1 Tablet(s) PO QD 01/23/2016 Inactive prednisone 20 mg tablet RxNorm: 866872 1 Tablet(s) PO T ID for 3 days then 1 po BID for 3 days then one daily for 3 days 01/23/2016 08/25/2016 Inactiv e Adwanted Ultra Test strips RxNorm: TEST BLOOD SUGAR ONCE DAILY 250.00 01/09/2016 11/04/2017 Inactive methocarbamol 750 mg tablet RxNorm: 463497 2 Tablet(s) PO TID as needed for muscle spasm 01/09/2016 04/23/2016 Inactive lactulose 10 gram/15 mL oral solution RxNorm: 149439 [address](s) PO QD 01/09/2016 09/22/2017 Inactive TAKE 1 TABLESPOON BY MOUTH ONCE DAILY metformin ER 500 mg tablet,extended release 24 hr RxNorm: 86 0975 1 Tablet(s) PO QD 12/26/2015 04/22/2016 Inactive fluoxetine 20 mg capsule RxNorm: 584123 1 Capsule(s) PO QD 12/23/19 16 06/19/2016 Inactive Premarin 0.45 mg tablet RxNorm: 507994 TAKE ONE TABLET BY MOUTH DAILY 12/23/2015 05/20/2016 Inactive fluoxetine 40 mg capsule RxNorm: 116512 1 Capsule(s) PO QD 12/23/19 16 06/19/2016 Inactive TAKE ONE CAPSULE BY MOUTH EV JANKI MORNING azithromycin 500 mg tablet RxNorm: 580643 1 Tablet(s) PO QD 016 12/19/2015 Inactive Zofran 4 mg tablet RxNorm: 823555 1 Tablet(s) PO Q4H prn nausea /vomiting 12/13/2015 03/30/2018 Inactive azithromycin 500 mg tablet RxNorm: 556916 1 Tablet(s) PO QD 016 12/12/2015 Inactive Duragesic 100 mcg/hr transdermal patch RxNorm: 223290 2 Application TD Q48H for pain 12/09/2015 01/07/2016 Inactive oxycodone 10 mg tablet RxNorm: 5242294 1-2 Tablet(s) PO QID as n eeded for pain 12/09/2015 06/04/2016 Inactive Bactroban 2 % topical cream RxNorm: 911299 Application TOP BID 11/2208/25/2016 Inactive doxycycline hyclate 100 mg capsule RxNorm: 7388590 1 Capsule(s) PO BID 12/03/2015 12/12/2015 Inactive Topamax 100 mg tablet RxNorm: 432540 TAKE ONE TABLET BY MOUTH EVERY NIGHT AT BEDTIME 11/25/2015 05/22/2016 Inactive Symbicort 160 mcg-4.5 mcg/actuation HFA aerosol inhaler RxNo rm: 3135524 INHALE TWO PUFFS TWO TIMES A DAY 11/25/2015 05/22/2016 Inactive Synthroid 112 mcg tablet RxNorm: 737941 Tablet(s) TAKE ONE TABLET BY MOUTH DAILY 11/25/2015 02/22/2016 Inactive omeprazole 40 mg capsule,delayed release RxNorm: 499020 1 Capsu le(s) PO QD 11/12/2015 05/05/2016 Inactive oxycodone 10 mg tablet RxNorm: 7264680 1-2 Tablet(s) PO QID as n eeded for pain 11/05/2015 12/08/2015 Inactive Duragesic 100 mcg/hr transdermal patch RxNorm: 476817 2 Application TD Q48H for pain 11/05/2015 12/04/2015 Inactive omeprazole 40 mg capsule,delayed release RxNorm: 707763 1 Capsu le(s) PO QD 10/07/2015 11/11/2015 Inactive Januvia 100 mg tablet RxNorm: 440486 TAKE ONE TABLET BY MOUTH DAILY 09/11/2015 12/25/2015 Inactive Zithromax 500 mg tablet RxNorm: 625199 1 Tablet(s) PO QD 09/10/2015 1 Inactive prednisone 20 mg tablet RxNorm: 613774 1 Tablet(s) PO T ID for 3 days then 1 po BID for 3 days then one daily for 3 days 09/10/2015 08/25/2016 Inactiv e Wellbutrin XL 300 mg 24 hr tablet, extended release RxNorm: 803840 1 Tablet(s) PO QAM 09/10/2015 12/02/2015 Inactive Topamax 100 mg tablet RxNorm: 779583 TAKE ONE TABLET BY MOUTH EVERY NIGHT AT BEDTIME 09/02/2015 11/24/2015 Inactive Synthroid 112 mcg tablet RxNorm: 107673 TAKE ONE TABLET BY MOUT H DAILY 09/02/2015 11/25/2015 Inactive methocarbamol 750 mg tablet RxNorm: 537865 2 Tablet(s) PO TID as needed for muscle spasm 08/15/2015 01/09/2016 Inactive Wellbutrin XL 150 mg 24 hr tablet, extended release RxNorm: 094911 TAKE ONE TABLET BY MOUTH EVERY MORNING 08/13/2015 08/13/2015 Inactive gabapentin 600 mg tablet RxNorm: 885854 1 Tablet(s) PO BID 08/13/20 15 02/08/2016 Inactive Wellbutrin XL 300 mg 24 hr tablet, extended release RxNorm: 401124 1 Tablet(s) PO QAM 08/06/2015 09/09/2015 Inactive Wellbutrin XL 150 mg 24 hr tablet, extended release RxNorm: 666689 1 Tablet(s) PO QAM 07/18/2015 08/05/2015 Inactive prednisone 20 mg tablet RxNorm: 011643 1 Tablet(s) PO BID 07/18/2015 07/22/2015 Inactive doxycycline hyclate 100 mg tablet,delayed release RxNorm: 43 4018 1 Tablet(s) PO BID 07/18/2015 07/27/2015 Inactive pravastatin 40 mg tablet RxNorm: 271803 1 Tablet(s) PO QD NEEDS FASTING LAB 07/15/2015 07/14/2015 Inactive pravastatin 40 mg tablet RxNorm: 381287 1 Tablet(s) PO QD NEEDS FASTING LAB 07/15/2015 01/25/2018 Inactive Ventolin HFA 90 mcg/actuation aerosol inhaler RxNorm: 166337 2 Puff(s) INH Q4H 07/08/2015 07/07/2015 Inactive prn Premarin 0.45 mg tablet RxNorm: 175078 1 Tablet(s) PO QD 07/01/2015 0 12/22/2015 Inactive pravastatin 40 mg tablet RxNorm: 477174 1 Tablet(s) PO QD NEEDS FASTING LAB 06/14/2015 07/15/2015 Inactive Ventolin HFA 90 mcg/actuation aerosol inhaler RxNorm: 8162700 2 Puff(s) INH Q4H 06/06/2015 07/08/2015 Inactive prn albuterol sulfate 2.5 mg/3 mL (0.083 %) solution for n ebulization RxNorm: 322184 1 Unit Dose INH QID 05/30/2015 No Stop Date Active Duragesic 100 mcg/hr transdermal patch RxNorm: 641614 2 Application TD Q48H for pain 04/29/2015 05/28/2015 Inactive gabapentin 600 mg tablet RxNorm: 500380 1 Tablet(s) PO BID 04/11/20 15 08/13/2015 Inactive Onglyza 5 mg tablet RxNorm: 326747 1 Tablet(s) PO QD for blood suga r 04/10/2015 04/15/2015 Inactive [Brand Copay Card: RxBIN:[id number] PCN:CRISTIANA RxGRP:[id number] ID#:[id number]] methocarbamol 750 mg tablet RxNorm: 151387 2 Tablet(s) PO TID as needed for muscle spasm 03/28/2015 08/15/2015 Inactive pravastatin 40 mg tablet RxNorm: 071853 1 Tablet(s) PO QD 03/19/2015 03/18/2015 Inactive pravastatin 40 mg tablet RxNorm: 018772 1 Tablet(s) PO QD 03/19/2015 06/14/2015 Inactive lactulose 10 gram/15 mL oral solution RxNorm: 907163 [address]s) PO QD 03/07/2015 01/09/2016 Inactive TAKE 1 TABLESPOON BY MOUTH ONCE DAILY oxycodone 20 mg tablet RxNorm: 2805049 1 Tablet(s) PO QID as nee ded for pain 03/05/2015 07/08/2015 Inactive Topamax 100 mg tablet RxNorm: 068454 1 Tablet(s) PO QHS TAKE ONE TABLET BY MOUTH AT BEDTIME 02/25/2015 02/12/2019 Inactive metformin ER 500 mg tablet,extended release 24 hr RxNorm: 86 0975 1 Tablet(s) PO QD 02/11/2015 03/04/2015 Inactive take one tablet by mouth every day Daliresp 500 mcg tablet RxNorm: 0909975 1 Tablet(s) PO QD 02/11/2015 08/09/2015 Inactive Endocet 10 mg-325 mg tablet RxNorm: 9604384 1 Tablet(s) PO Q4H as needed for pain 01/23/2015 01/23/2015 Inactive gabapentin 600 mg tablet RxNorm: 124240 1 Tablet(s) PO BID 01/23/20 15 04/11/2015 Inactive methocarbamol 750 mg tablet RxNorm: 855135 2 Tablet(s) PO TID as needed for muscle spasm 01/15/2015 02/13/2015 Inactive fluoxetine 40 mg capsule RxNorm: 757474 1 Capsule(s) PO QD 01/14/20 15 12/23/2015 Inactive TAKE ONE CAPSULE BY MOUTH EV JANKI MORNING fluoxetine 20 mg capsule RxNorm: 321471 1 Capsule(s) PO QD 01/14/20 15 12/23/2015 Inactive Premarin 0.45 mg tablet RxNorm: 941250 1 Tablet(s) PO QD 01/02/2015 0 07/01/2015 Inactive Endocet 10 mg-325 mg tablet RxNorm: 4319646 1-2 Tablet(s) PO Q4H 02/12/2019 Inactive PRN PAIN Duragesic 100 mcg/hr transdermal patch RxNorm: 520642 2 Application TD Q48H for pain 12/25/2014 01/23/2015 Inactive Topamax 100 mg tablet RxNorm: 820562 1 Tablet(s) PO QHS TAKE ONE TABLET BY MOUTH AT BEDTIME 12/25/2014 02/24/2015 Inactive Tudorza Pressair 400 mcg/actuation breath activated RxNorm: 0101865 1 BID INHALE ONE PUFF INTO LUNGS TWO TIMES A DAY 12/17/2014 05/15/2015 Inactive Endocet 10 mg-325 mg tablet RxNorm: 4999152 1-2 Tablet(s) PO Q4H 12/19/2014 Inactive PRN PAIN Duragesic 100 mcg/hr transdermal patch RxNorm: 705665 2 Application TD Q48H for pain 11/20/2014 12/24/2014 Inactive Adwanted Ultra Test strips RxNorm: TEST BLOOD SUGAR ONCE DAILY 250.00 11/16/2014 01/08/2016 Inactive omeprazole 40 mg capsule,delayed release RxNorm: 910276 1 Capsu le(s) PO QD 11/13/2014 11/12/2015 Inactive metformin ER 500 mg tablet,extended release 24 hr RxNorm: 86 0975 1 Tablet(s) PO QD 11/12/2014 02/11/2015 Inactive take one tablet by mouth every day Symbicort 160 mcg-4.5 mcg/actuation HFA aerosol inhaler RxNo rm: 4685387 2 Puff(s) INH BID 11/12/2014 03/11/2015 Inactive INHALE 2 PUFFS O RALLY TWO TIMES A DAY gabapentin 800 mg tablet RxNorm: 023857 1 Tablet(s) PO QD TAKE ONE TABLET BY MOUTH ONCE A DAY 10/22/2014 01/01/2015 Inactive Endocet 10 mg-325 mg tablet RxNorm: 6373007 1-2 Tablet(s) PO Q4H 11/15/2014 Inactive PRN PAIN Duragesic 100 mcg/hr transdermal patch RxNorm: 868786 2 Application TD Q48H for pain 10/17/2014 11/19/2014 Inactive gabapentin 800 mg tablet RxNorm: 506925 1 Tablet(s) PO QD TAKE ONE TABLET BY MOUTH ONCE A DAY 10/04/2014 10/21/2014 Inactive Premarin 0.9 mg tablet RxNorm: 405272 1 Tablet(s) PO QD TAKE ONE TABLET BY MOUTH ONCE A DAY 10/04/2014 01/01/2015 Inactive Spiriva with HandiHaler 18 mcg & inhalation capsules RxNorm: 945800 1 Capsule(s) INH QD 10/03/2014 04/30/2015 Inactive Levaquin 500 mg tablet RxNorm: 505422 1 Tablet(s) PO QD 10/03/2014 Inactive prednisone 20 mg tablet RxNorm: 041235 1 Tablet(s) PO QD 10/03/2014 1 12/09/2013 Inactive Duragesic 100 mcg/hr transdermal patch RxNorm: 773759 2 Application TD Q48H for pain 09/18/2014 10/16/2014 Inactive Endocet 10 mg-325 mg tablet RxNorm: 8474880 1-2 Tablet(s) PO Q4H 10/16/2014 Inactive PRN PAIN Synthroid 112 mcg tablet RxNorm: 185075 1 Tablet(s) QD 09/10/2014 Inactive Synthroid 112 mcg tablet RxNorm: 319915 TAKE ONE TABLET BY MOUTH ONE TIME A DAY. NEEDS LABS 09/10/2014 02/06/2015 Inactive omeprazole 40 mg capsule,delayed release RxNorm: 684098 1 Capsu le(s) PO QD 09/03/2014 11/13/2014 Inactive omeprazole 40 mg capsule,delayed release RxNorm: 709217 1 Capsu le(s) PO QD 09/03/2014 09/02/2014 Inactive Spiriva with HandiHaler 18 mcg & inhalation capsules RxNorm: 672985 1 Capsule(s) INH QD 08/27/2014 10/02/2014 Inactive gabapentin 600 mg tablet RxNorm: 558378 1 Tablet(s) PO BID 08/27/20 14 10/22/2014 Inactive Endocet 10 mg-325 mg tablet RxNorm: 5440939 1-2 Tablet(s) PO Q4H 09/17/2014 Inactive PRN PAIN fentanyl 100 mcg/hr transdermal patch RxNorm: 925187 1 Unit Dos e TD QD 08/21/2014 09/19/2014 Inactive Daliresp 500 mcg tablet RxNorm: 7665332 1 Tablet(s) PO QD 08/13/2014 02/11/2015 Inactive Synthroid 112 mcg tablet RxNorm: 812810 TAKE ONE TABLET BY MOUTH ONE TIME A DAY. NEEDS LABS 08/10/2014 09/10/2014 Inactive Endocet 10 mg-325 mg tablet RxNorm: 8089701 1-2 Tablet(s) PO Q4H 08/17/2014 Inactive PRN PAIN Duragesic 100 mcg/hr transdermal patch RxNorm: 507248 2 Application TD Q48H for pain 07/19/2014 09/17/2014 Inactive fluoxetine 40 mg capsule RxNorm: 545120 1 Capsule(s) PO QD 07/17/20 14 01/14/2015 Inactive TAKE ONE CAPSULE BY MOUTH EV JANKI MORNING fluoxetine 20 mg capsule RxNorm: 936386 1 Capsule(s) PO QD 07/17/20 14 01/14/2015 Inactive Spiriva with HandiHaler 18 mcg & inhalation capsules RxNorm: 144603 1 Capsule(s) INH QD 07/17/2014 08/26/2014 Inactive INHALE CONTENTS OF 1 CAPSULE(S) WITH HANDIHALER ONCE DAILY Zofran 4 mg tablet RxNorm: 270809 1 Tablet(s) PO Q4H prn nausea 07/25/2014 Inactive Synthroid 112 mcg tablet RxNorm: 445647 1 Tablet(s) PO QD 07/09/2014 07/09/2014 Inactive methocarbamol 750 mg tablet RxNorm: 348149 2 Tablet(s) PO TID as needed for muscle spasm 07/09/2014 09/06/2014 Inactive Synthroid 112 mcg tablet RxNorm: 232906 1 Tablet(s) PO QD - nee d labs 07/09/2014 08/07/2014 Inactive Medrol (Aníbal) 4 mg tablets in a dose pack RxNorm: 278044 6 Tablet(s) PO QD --then as directed 07/03/2014 07/08/2014 Inactive Tudorza Pressair 400 mcg/actuation breath activated RxNorm: 0278569 1 Puff(s) INH BID 07/03/2014 12/17/2014 Inactive cefdinir 300 mg capsule RxNorm: 477128 1 Capsule(s) PO BID 07/03/20 14 07/12/2014 Inactive Topamax 100 mg tablet RxNorm: 904740 Tablet(s) TAKE ONE TABLET BY MOUTH AT BEDTIME 07/02/2014 02/25/2015 Inactive Duragesic 100 mcg/hr transdermal patch RxNorm: 951991 2 Application TD Q48H for pain 06/25/2014 07/18/2014 Inactive Endocet 10 mg-325 mg tablet RxNorm: 0888491 1-2 Tablet(s) PO Q4H 07/18/2014 Inactive PRN PAIN metformin ER 500 mg tablet,extended release 24 hr RxNorm: 86 0975 1 Tablet(s) PO QD Needs labs 06/18/2014 07/01/2014 Inactive take one tablet by mouth every day Duragesic 100 mcg/hr transdermal patch RxNorm: 982181 2 Application TD Q48H for pain 05/22/2014 06/24/2014 Inactive Synthroid 112 mcg tablet RxNorm: 976765 1 Tablet(s) PO QD 05/22/2014 07/09/2014 Inactive Endocet 10 mg-325 mg tablet RxNorm: 3256545 1-2 Tablet(s) PO Q4H 06/20/2014 Inactive PRN PAIN Endocet 10 mg-325 mg tablet RxNorm: 1343600 1-2 Tablet(s) PO Q4H 05/21/2014 Inactive PRN PAIN Duragesic 100 mcg/hr transdermal patch RxNorm: 381811 2 Application TD Q48H for pain 04/25/2014 05/21/2014 Inactive Daliresp 500 mcg tablet RxNorm: 2814275 1 Tablet(s) PO QD 04/24/2014 08/13/2014 Inactive Symbicort 160 mcg-4.5 mcg/actuation HFA aerosol inhaler RxNo rm: 2563206 2 Puff(s) INH BID 04/24/2014 08/21/2014 Inactive INHALE 2 PUFFS O RALLY TWO TIMES A DAY metformin ER 500 mg tablet,extended release 24 hr RxNorm: 86 0975 1 Tablet(s) PO QD 04/24/2014 11/12/2014 Inactive TAKE ONE TABLET BY MOUTH EVERY DAY [AttnRPh:Saving Apply/Adjudicate RxGRP:LDMGRP RxBIN:[id number] RxPCN:2012 PCode:01 ID#:[id number]] Symbicort 160 mcg-4.5 mcg/actuation HFA aerosol inhaler RxNo rm: 2422719 2 Puff(s) INH BID 04/24/2014 11/12/2014 Inactive INHALE 2 PUFFS O RALLY TWO TIMES A DAY Premarin 0.9 mg tablet RxNorm: 289990 1 Tablet(s) PO QD 04/24/2014 Inactive TAKE ONE TABLET BY MOUTH EVERY DAY metformin ER 500 mg tablet,extended release 24 hr RxNorm: 86 0975 1 Tablet(s) PO QD Needs labs 04/24/2014 06/18/2014 Inactive TAKE ONE TABLET BY MOUTH EVERY DAY [AttnRPh:Saving Apply/Adjudicate RxGRP:LDMGRP RxBIN:[id number] RxPCN:2012 PCode:01 ID#:[id number]] gabapentin 800 mg tablet RxNorm: 756616 1 Tablet(s) PO QD 04/24/2014 10/04/2014 Inactive TAKE ONE TABLET BY MOUTH EVERY DAY Topamax 100 mg tablet RxNorm: 770472 1 Tablet(s) PO QHS 04/17/2014 Inactive Topamax 100 mg tablet RxNorm: 838215 TAKE ONE TABLET BY MOUTH A T BEDTIME 04/17/2014 07/01/2014 Inactive Tudorza Pressair 400 mcg/actuation breath activated RxNorm: 8620386 1 Puff(s) INH BID 04/11/2014 07/02/2014 Inactive Duragesic 100 mcg/hr transdermal patch RxNorm: 348210 2 Application TD Q48H for pain 03/27/2014 04/24/2014 Inactive Endocet 10 mg-325 mg tablet RxNorm: 9407947 1-2 Tablet(s) PO Q4H 04/24/2014 Inactive PRN PAIN Robaxin 750 mg tablet RxNorm: 973628 2 Tablet(s) PO TID as need ed for spasm 02/23/2014 03/28/2015 Inactive Duragesic 100 mcg/hr transdermal patch RxNorm: 837562 2 Application TD Q48H for pain 02/23/2014 No Stop Date Active Endocet 10 mg-325 mg tablet RxNorm: 7913212 1-2 Tablet(s) PO Q4H 03/23/2014 Inactive PRN PAIN Synthroid 112 mcg tablet RxNorm: 575230 1 Tablet(s) PO QD TAKE ONE TABLET BY MOUTH EVERY DAY 02/15/2014 05/22/2014 Inactive Zithromax 500 mg tablet RxNorm: 558405 1 Tablet(s) PO QD 01/30/2014 0 02/05/2014 Inactive Diflucan 100 mg tablet RxNorm: 696110 1 Tablet(s) PO QD 01/30/2014 Inactive prednisone 20 mg tablet RxNorm: 348147 1 Tablet(s) PO BID 01/30/2014 02/05/2014 Inactive fluoxetine 40 mg capsule RxNorm: 693343 1 Capsule(s) PO QD 01/23/20 14 07/16/2014 Inactive TAKE ONE CAPSULE BY MOUTH EV JANKI MORNING fluoxetine 40 mg capsule RxNorm: 633708 1 Capsule(s) PO QD 01/23/20 14 07/17/2014 Inactive TAKE ONE CAPSULE BY MOUTH EV JANKI MORNING cefdinir 300 mg capsule RxNorm: 788551 1 Capsule(s) PO BID 01/16/20 14 01/29/2014 Inactive Zithromax 500 mg tablet RxNorm: 084191 1 Tablet(s) PO QD 01/16/2014 0 01/22/2014 Inactive prednisone 20 mg tablet RxNorm: 756898 1 Tablet(s) PO BID 01/16/2014 01/22/2014 Inactive Spiriva with HandiHaler 18 mcg and inhalation capsules RxNor m: 596908 1 Capsule(s) INH QD 12/18/2013 07/17/2014 Inactive INHALE CONTENT S OF 1 CAPSULE(S) WITH HANDIHALER ONCE DAILY fluoxetine 20 mg capsule RxNorm: 533664 1 Capsule(s) PO QD 12/18/19 14 06/15/2014 Inactive Spiriva with HandiHaler 18 mcg & inhalation capsules RxNorm: 087646 1 Capsule(s) INH QD 12/18/2013 06/15/2014 Inactive INHALE CONTENTS OF 1 CAPSULE(S) WITH HANDIHALER ONCE DAILY fluoxetine 20 mg capsule RxNorm: 224339 1 Capsule(s) PO QD 12/18/19 14 07/17/2014 Inactive cefdinir 300 mg capsule RxNorm: 920440 2 Capsule(s) PO QD 12/12/2013 12/21/2013 Inactive Duragesic 100 mcg/hr transdermal patch RxNorm: 801719 2 Application TD Q48H for pain 12/08/2013 12/07/2013 Inactive Topamax 100 mg tablet RxNorm: 494048 1 Tablet(s) PO QHS 12/04/2013 Inactive Endocet 10 mg-325 mg tablet RxNorm: 3654066 1-2 Tablet(s) PO Q4H 12/26/2013 Inactive PRN PAIN Robaxin 750 mg tablet RxNorm: 713477 2 Tablet(s) PO TID as need ed for spasm 11/07/2013 01/05/2014 Inactive gabapentin 800 mg tablet RxNorm: 984731 1 Tablet(s) PO QD 10/16/2013 04/24/2014 Inactive TAKE ONE TABLET BY MOUTH EVERY DAY Symbicort 160 mcg-4.5 mcg/actuation HFA aerosol inhaler RxNo rm: 7692028 2 Puff(s) INH BID 10/16/2013 04/24/2014 Inactive INHALE 2 PUFFS O RALLY TWO TIMES A DAY Premarin 0.9 mg tablet RxNorm: 498756 1 Tablet(s) PO QD 10/16/2013 Inactive TAKE ONE TABLET BY MOUTH EVERY DAY metformin ER 500 mg tablet,extended release 24 hr RxNorm: 86 0975 1 Tablet(s) PO QD 10/16/2013 04/24/2014 Inactive TAKE ONE TABLET BY MOUTH EVERY DAY Daliresp 500 mcg tablet RxNorm: 7595671 1 Tablet(s) PO QD 10/16/2013 04/24/2014 Inactive Robaxin 750 mg tablet RxNorm: 579825 2 Tablet(s) PO TID as need ed for spasm 10/10/2013 11/06/2013 Inactive Duragesic 100 mcg/hr transdermal patch RxNorm: 707461 2 Application TD Q48H for pain 10/09/2013 No Stop Date Active Soma 350 mg tablet RxNorm: 832205 1 Tablet(s) PO TID 09/27/201310/09 Inactive TAKE ONE TABLET BY MOUTH THREE TIMES A D AY lactulose 10 gram/15 mL oral solution RxNorm: 133873 [address](s) PO QD 09/13/2013 03/07/2015 Inactive TAKE 1 TABLESPOON BY MOUTH ONCE DAILY Duragesic 100 mcg/hr transdermal patch RxNorm: 229215 2 Application TD Q48H for pain 09/06/2013 No Stop Date Active Endocet 10 mg-325 mg tablet RxNorm: 8555670 1-2 Tablet(s) PO Q4H 09/27/2013 Inactive PRN PAIN lancets 28 gauge RxNorm: Miscellaneous As needed for blo od glucose sticks 08/24/2013 No Stop Date Active 16.2 mg-0.1037 mg-0.0194 mg tablet RxNorm: 9425344 Tablet(s) PO PRN for gas and cramping 08/24/2013 01/19/2017 Inactive TAKE TWO TABLET S BY MOUTH THREE TIMES A DAY NEEDED FOR GAS AND CRAMPING Topamax 100 mg tablet RxNorm: 151383 1 Tablet(s) PO QHS 07/31/2013 Inactive Diflucan 100 mg tablet RxNorm: 170147 1 Tablet(s) PO QD 07/27/2013 Inactive cefdinir 300 mg capsule RxNorm: 593512 1 Capsule(s) PO BID 07/26/20 13 08/08/2013 Inactive Daliresp 500 mcg tablet RxNorm: 8048852 1 Tablet(s) PO QD 07/25/2013 10/15/2013 Inactive fluoxetine 40 mg capsule RxNorm: 356052 1 Capsule(s) PO QD 07/25/20 13 01/22/2014 Inactive TAKE ONE CAPSULE BY MOUTH EV JANKI MORNING Senokot-S 8.6 mg-50 mg tablet RxNorm: 1951969 1 Tablet(s) PO BID 10/25/2013 Inactive doxycycline hyclate 100 mg capsule RxNorm: 1135194 1 Capsule(s) PO BID 06/28/2013 07/07/2013 Inactive prednisone 20 mg tablet RxNorm: 714912 1 Tablet(s) PO BID 06/28/2013 07/04/2013 Inactive Zofran 4 mg tablet RxNorm: 199811 1 Tablet(s) PO Q4H prn nausea 03/201307/05/2013 Inactive Spiriva with HandiHaler 18 mcg & inhalation capsules RxNorm: 490083 1 Capsule(s) INH QD 06/26/2013 12/18/2013 Inactive INHALE CONTENTS OF 1 CAPSULE(S) WITH HANDIHALER ONCE DAILY Synthroid 112 mcg tablet RxNorm: 561976 1 Tablet(s) PO QD TAKE ONE TABLET BY MOUTH EVERY DAY 06/19/2013 02/15/2014 Inactive fluoxetine 20 mg capsule RxNorm: 502566 1 Capsule(s) PO QD 06/19/20 13 12/18/2013 Inactive Ventolin HFA 90 mcg/actuation Aerosol Inhaler RxNorm: 9072539 2 Puff(s) INH Q4H 06/05/2013 No Stop Date Active prn Soma 350 mg tablet RxNorm: 603977 1 Tablet(s) PO TID 06/05/201307/04 Inactive TAKE ONE TABLET BY MOUTH THREE TIMES A D AY prednisone 20 mg tablet RxNorm: 757622 1 Tablet(s) PO QD 05/31/2013 0 06/06/2013 Inactive Topamax 100 mg tablet RxNorm: 879270 1 Tablet(s) PO QHS 05/22/2013 Inactive Levaquin 500 mg tablet RxNorm: 035048 1 Tablet(s) PO QD 05/03/2013 Inactive Diflucan 100 mg tablet RxNorm: 655744 1 Tablet(s) PO QD 05/03/2013 Inactive Daliresp 500 mcg tablet RxNorm: 7471362 1 Tablet(s) PO QD 05/01/2013 07/24/2013 Inactive Daliresp 500 mcg tablet RxNorm: 0386286 1 Tablet(s) PO QD 05/01/2013 04/30/2013 Inactive gabapentin 800 mg tablet RxNorm: 138739 1 Tablet(s) PO QD 04/10/2013 10/06/2013 Inactive TAKE ONE TABLET BY MOUTH EVERY DAY metformin ER 500 mg tablet,extended release 24 hr RxNorm: 86 0977 1 Tablet(s) PO QD 04/10/2013 10/06/2013 Inactive TAKE ONE TABLET BY MOUTH EVERY DAY Premarin 0.9 mg tablet RxNorm: 422173 1 Tablet(s) PO QD 04/10/2013 Inactive TAKE ONE TABLET BY MOUTH EVERY DAY Symbicort 160 mcg-4.5 mcg/actuation HFA aerosol inhaler RxNo rm: 1818695 2 Puff(s) INH BID 04/10/2013 10/06/2013 Inactive INHALE 2 PUFFS O RALLY TWO TIMES A DAY Synthroid 112 mcg tablet RxNorm: 855149 1 Tablet(s) PO QD TAKE ONE TABLET BY MOUTH EVERY DAY 04/10/2013 06/18/2013 Inactive Ventolin HFA 90 mcg/actuation Aerosol Inhaler RxNorm: 704580 2 Puff(s) INH Q4H 04/10/2013 No Stop Date Active prn fentanyl 100 mcg/hr transdermal patch RxNorm: 208133 1 Unit Dos e TD QD 04/03/2013 05/02/2013 Inactive Endocet 10 mg-325 mg tablet RxNorm: 9290624 1-2 Tablet(s) PO Q4H 05/02/2013 Inactive PRN PAIN Topamax 100 mg tablet RxNorm: 433738 1 Tablet(s) PO QHS 03/13/2013 Inactive Reglan 10 mg tablet RxNorm: 875173 1 Tablet(s) PO QID b efore meals and at bedtime 03/13/2013 04/09/2015 Inactive fluoxetine 20 mg capsule RxNorm: 191750 1 Capsule(s) PO QD 02/28/20 13 05/27/2013 Inactive Ventolin HFA 90 mcg/actuation Aerosol Inhaler RxNorm: 232787 2 Puff(s) INH Q4H 02/13/2013 No Stop Date Active prn fluoxetine 40 mg capsule RxNorm: 572304 1 Capsule(s) PO QD 01/31/20 13 07/24/2013 Inactive TAKE ONE CAPSULE BY MOUTH EV JANKI MORNING Soma 350 mg tablet RxNorm: 586916 1 Tablet(s) PO TID 01/20/201302/18 Inactive TAKE ONE TABLET BY MOUTH THREE TIMES A D AY Endocet 10 mg-325 mg tablet RxNorm: 7756189 1-2 Tablet(s) PO Q4H 02/06/2013 Inactive PRN PAIN MS Contin 200 mg tablet,extended release RxNorm: 956562 1 Table t(s) PO BID 01/18/2013 02/06/2013 Inactive Ventolin HFA 90 mcg/actuation Aerosol Inhaler RxNorm: 830623 2 Puff(s) INH Q4H 01/04/2013 No Stop Date Active prn Spiriva with HandiHaler 18 mcg & inhalation capsules RxNorm: 497477 1 Capsule(s) INH QD 12/29/2012 06/25/2013 Inactive INHALE CONTENTS OF 1 CAPSULE(S) WITH HANDIHALER ONCE DAILY Spiriva with HandiHaler 18 mcg & inhalation capsules RxNorm: 528083 1 Capsule(s) INH QD 12/26/2012 12/28/2012 Inactive INHALE CONTENTS OF 1 CAPSULE(S) WITH HANDIHALER ONCE DAILY Synthroid 112 mcg tablet RxNorm: 758913 Tablet(s) PO TA KE ONE TABLET BY MOUTH EVERY DAY 12/26/2012 04/09/2013 Inactive Endocet 10 mg-325 mg tablet RxNorm: 2504866 1-2 Tablet(s) PO Q4H 01/17/2013 Inactive PRN PAIN MS Contin 200 mg tablet,extended release RxNorm: 275133 1 Table t(s) PO BID 12/21/2012 01/17/2013 Inactive fluoxetine 20 mg capsule RxNorm: 735390 1 Capsule(s) PO QD 12/06/19 13 02/26/2013 Inactive Synthroid 112 mcg tablet RxNorm: 163875 1 Tablet(s) PO QD 12/06/2012 02/12/2019 Inactive TAKE ONE TABLET BY MOUTH EVERY DAY Ventolin HFA 90 mcg/actuation Aerosol Inhaler RxNorm: 170002 2 Puff(s) INH Q4H 12/06/2012 No Stop Date Active prn Reglan 10 mg tablet RxNorm: 598680 1 Tablet(s) PO QID b efore meals and at bedtime 11/24/2012 03/12/2013 Inactive Topamax 100 mg tablet RxNorm: 026219 1 Tablet(s) PO QHS 11/16/2012 Inactive Ventolin HFA 90 mcg/actuation Aerosol Inhaler RxNorm: 198743 2 Puff(s) INH Q4H 11/09/2012 No Stop Date Active prn gabapentin 800 mg tablet RxNorm: 747414 1 Tablet(s) PO QD 10/27/2012 04/09/2013 Inactive TAKE ONE TABLET BY MOUTH EVERY DAY metformin ER 500 mg tablet,extended release 24 hr RxNorm: 86 0977 1 Tablet(s) PO QD 10/27/2012 04/09/2013 Inactive TAKE ONE TABLET BY MOUTH EVERY DAY Symbicort 160 mcg-4.5 mcg/actuation HFA Aerosol Inhaler RxNo rm: 3401610 2 Puff(s) INH BID 10/27/2012 04/09/2013 Inactive INHALE 2 PUFFS O RALLY TWO TIMES A DAY Premarin 0.9 mg tablet RxNorm: 504007 1 Tablet(s) PO QD 10/27/2012 Inactive TAKE ONE TABLET BY MOUTH EVERY DAY Endocet 10 mg-325 mg tablet RxNorm: 5452092 1-2 Tablet(s) PO Q4H 11/24/2012 Inactive PRN PAIN MS Contin 200 mg tablet,extended release RxNorm: 586212 1 Table t(s) PO BID 10/26/2012 11/24/2012 Inactive Soma 350 mg tablet RxNorm: 328573 1 Tablet(s) PO TID 10/04/201211/02 Inactive TAKE ONE TABLET BY MOUTH THREE TIMES A D AY Ventolin HFA 90 mcg/actuation Aerosol Inhaler RxNorm: 961245 2 Puff(s) INH Q4H 10/03/2012 No Stop Date Active prn Daliresp 500 mcg tablet RxNorm: 3272470 1 Tablet(s) PO QD 09/28/2012 09/27/2012 Inactive Daliresp 500 mcg tablet RxNorm: 5960920 1 Tablet(s) PO QD 09/28/2012 04/25/2013 Inactive fluoxetine 20 mg capsule RxNorm: 864902 1 Capsule(s) PO QD 09/05/2012/06/2012 Inactive Topamax 50 mg tablet RxNorm: 206019 Tablet(s) PO for 1w k then 1 po q HS for 1wk then 2 po q HS 08/29/2012 09/27/2012 Inactive TAKE 1/2 TABLET BY MOUTH AT BEDTIME FOR 1 WEEK, THEN 1 TABLET AT BEDTIME FOR 1 WEEK, THEN 2 TABLETS AT BEDTIME Topamax 100 mg tablet RxNorm: 932403 1 Tablet(s) PO QHS 08/29/2012 Inactive Ventolin HFA 90 mcg/actuation Aerosol Inhaler RxNorm: 341841 2 Puff(s) INH Q4H 08/19/2012 No Stop Date Active prn Ventolin HFA 90 mcg/actuation Aerosol Inhaler RxNorm: 556313 2 Puff(s) INH Q4H 08/15/2012 No Stop Date Active prn Synthroid 112 mcg tablet RxNorm: 120303 1 Tablet(s) PO QD 08/10/2012 11/07/2012 Inactive TAKE ONE TABLET BY MOUTH EVERY DAY Synthroid 112 mcg tablet RxNorm: 290832 1 Tablet(s) PO QD 08/01/2012 08/09/2012 Inactive TAKE ONE TABLET BY MOUTH EVERY DAY Reglan 10 mg tablet RxNorm: 297001 1 Tablet(s) PO QID b efore meals and at bedtime 08/01/2012 11/23/2012 Inactive fluoxetine 40 mg capsule RxNorm: 097636 1 Capsule(s) PO QD 08/01/2001/27/2013 Inactive TAKE ONE CAPSULE BY MOUTH EV JANKI MORNING Ventolin HFA 90 mcg/actuation Aerosol Inhaler RxNorm: 129254 2 Puff(s) INH Q4H 08/01/2012 No Stop Date Active prn Soma 350 mg tablet RxNorm: 750568 1 Tablet(s) PO TID 07/20/201208/18 Inactive TAKE ONE TABLET BY MOUTH THREE TIMES A D AY Spiriva with HandiHaler 18 mcg & inhalation capsules RxNorm: 422299 1 Capsule(s) INH 07/01/2012 12/25/2012 Inactive INHALE CONTENTS OF 1 CAPSULE(S) WITH HANDIHALER ONCE DAILY Zithromax 250 mg Tab RxNorm: 433041 2 Tablet(s) PO QD 06/28/201206/22 Inactive MS Contin 200 mg tablet,extended release RxNorm: 598207 1 Table t(s) PO BID 06/28/2012 07/27/2012 Inactive Endocet 10 mg-325 mg tablet RxNorm: 6699436 1-2 Tablet(s) PO Q4H 07/27/2012 Inactive PRN PAIN Topamax 100 mg tablet RxNorm: 879976 1 Tablet(s) PO QHS 06/28/2012 Inactive 16.2 mg-0.1037 mg-0.0194 mg tablet RxNorm: 4453523 Tablet(s) PO PRN for gas and cramping 06/08/2012 08/23/2013 Inactive TAKE TWO TABLET S BY MOUTH THREE TIMES A DAY NEEDED FOR GAS AND CRAMPING Ventolin HFA 90 mcg/actuation Aerosol Inhaler RxNorm: 350049 2 Puff(s) INH Q4H 05/23/2012 No Stop Date Active prn Ventolin HFA 90 mcg/actuation Aerosol Inhaler RxNorm: 396959 2 Puff(s) INH Q4H 05/11/2012 No Stop Date Active prn Synthroid 112 mcg tablet RxNorm: 392469 1 Tablet(s) PO QD 05/09/2012 07/31/2012 Inactive TAKE ONE TABLET BY MOUTH EVERY DAY gabapentin 800 mg tablet RxNorm: 643284 1 Tablet(s) PO QD 05/09/2012 10/26/2012 Inactive TAKE ONE TABLET BY MOUTH EVERY DAY fluoxetine 40 mg capsule RxNorm: 718008 1 Capsule(s) PO QD 05/09/2007/31/2012 Inactive TAKE ONE CAPSULE BY MOUTH EV JANKI MORNING metformin ER 500 mg tablet,extended release 24 hr RxNorm: 86 0977 1 Tablet(s) PO QD 05/09/2012 10/26/2012 Inactive TAKE ONE TABLET BY MOUTH EVERY DAY Premarin 0.9 mg tablet RxNorm: 360349 1 Tablet(s) PO QD 05/09/2012 Inactive TAKE ONE TABLET BY MOUTH EVERY DAY Symbicort 160 mcg-4.5 mcg/actuation HFA Aerosol Inhaler RxNo rm: 9399116 2 Puff(s) INH BID 05/09/2012 10/26/2012 Inactive INHALE 2 PUFFS O RALLY TWO TIMES A DAY Endocet 10 mg-325 mg Tab RxNorm: 2477389 1-2 Tablet(s) PO Q4H 04/2705/26/2012 Inactive PRN PAIN MS Contin 200 mg Tab RxNorm: 743395 1 Tablet(s) PO BID 04/26/201202/2012 Inactive Ventolin HFA 90 mcg/actuation Aerosol Inhaler RxNorm: 719378 2 Puff(s) INH Q4H 04/25/2012 05/10/2012 Inactive prn Soma 350 mg tablet RxNorm: 216582 2 Tablet(s) PO TID 04/19/201207/19 Inactive TAKE ONE TABLET BY MOUTH THREE TIMES A D AY Ventolin HFA 90 mcg/actuation Aerosol Inhaler RxNorm: 818618 2 Puff(s) INH Q4H 04/12/2012 04/24/2012 Inactive prn Reglan 10 mg tablet RxNorm: 245739 1 Tablet(s) PO QID b efore meals and at bedtime 04/11/2012 07/31/2012 Inactive MS Contin 200 mg Tab RxNorm: 396085 1 Tablet(s) PO BID 03/30/201202/2012 Inactive Endocet 10 mg-325 mg Tab RxNorm: 9803027 1-2 Tablet(s) PO Q4H 03/3004/26/2012 Inactive PRN PAIN MS Contin 200 mg Tab RxNorm: 790407 1 Tablet(s) PO BID 03/02/201206/2012 Inactive Endocet 10 mg-325 mg Tab RxNorm: 3801699 1-2 Tablet(s) PO Q4H 03/0203/29/2012 Inactive PRN PAIN Daliresp 500 mcg tablet RxNorm: 7382238 1 Tablet(s) PO QD 03/01/2012 09/28/2012 Inactive MS Contin 200 mg Tab RxNorm: 616576 1 Tablet(s) PO BID 02/02/201208/2012 Inactive Endocet 10 mg-325 mg Tab RxNorm: 2139971 1-2 Tablet(s) PO Q4H 02/0103/01/2012 Inactive PRN PAIN fluoxetine 40 mg capsule RxNorm: 572556 1 Capsule(s) PO QD 02/02/2008/01/2012 Inactive TAKE ONE CAPSULE BY MOUTH EV JANKI MORNING Synthroid 112 mcg Tab RxNorm: 682705 1 Tablet(s) PO QD 01/18/2012 Inactive TAKE ONE TABLET BY MOUTH EVERY DAY lactulose 10 gram/15 mL oral solution RxNorm: 211706 [address]s) PO QD 01/18/2012 No Stop Date Active TAKE 1 TABLESPOON BY MOUTH ONCE DAILY Ventolin HFA 90 mcg/actuation Aerosol Inhaler RxNorm: 385384 2 Puff(s) INH Q4H 01/18/2012 04/11/2012 Inactive prn MS Contin 200 mg Tab RxNorm: 491875 1 Tablet(s) PO BID 01/05/201210/2012 Inactive Endocet 10 mg-325 mg Tab RxNorm: 7185611 1-2 Tablet(s) PO Q4H 01/0502/01/2012 Inactive PRN PAIN ProAir HFA 90 mcg/Actuation Aerosol Inhaler RxNorm: 628359 2 Pu ff(s) INH Q4H 12/21/2011 No Stop Date Active prn for wheezing or shortness of breath Spiriva with HandiHaler 18 mcg & inhalation Caps RxNorm: 580 261 1 Capsule(s) INH 12/21/2011 06/30/2012 Inactive INHALE CONTENTS OF 1 CAPSULE(S) WITH HANDIHALER ONCE DAILY Reglan 10 mg Tab RxNorm: 783633 1 Tablet(s) PO QID before meals and at bedtime 12/21/2011 04/10/2012 Inactive Synthroid 112 mcg Tab RxNorm: 213966 1 Tablet(s) PO QD 12/21/2011 Inactive TAKE ONE TABLET BY MOUTH EVERY DAY Endocet 10 mg-325 mg Tab RxNorm: 6087116 1-2 Tablet(s) PO Q4H 11/2512/24/2011 Inactive PRN PAIN MS Contin 200 mg Tab RxNorm: 289720 1 Tablet(s) PO BID 11/25/201112/2011 Inactive lactulose 10 gram/15 mL Oral Soln RxNorm: 926334 Milliliter(s) PO 1 No Stop Date Active TAKE 1 TABLESPOON BY MOUTH O NCE DAILY lactulose 10 gram/15 mL Oral Soln RxNorm: 807818 Milliliter(s) PO 1 12/12/2010 11/20/2011 Inactive TAKE 1 TABLESPOON BY MOUTH O NCE DAILY Premarin 0.9 mg Tab RxNorm: 539911 1 Tablet(s) PO QD 10/12/201105/08 Inactive TAKE ONE TABLET BY MOUTH EVERY DAY fluoxetine 20 mg capsule RxNorm: 913612 1 Capsule(s) PO QD 10/12/20 11 09/05/2012 Inactive TAKE ONE CAPSULE BY MOUTH EV JANKI DAY Synthroid 112 mcg Tab RxNorm: 566618 1 Tablet(s) PO QD 10/12/2011 Inactive TAKE ONE TABLET BY MOUTH EVERY DAY metformin ER 500 mg 24 hr Tab RxNorm: 542613 1 Tablet(s) PO QD 09/2311/10/2011 Inactive TAKE ONE TABLET BY MOUTH GLYNN RY DAY Synthroid 112 mcg Tab RxNorm: 156087 1 Tablet(s) PO QD 10/12/2011 Inactive TAKE ONE TABLET BY MOUTH EVERY DAY metformin ER 500 mg 24 hr Tab RxNorm: 238034 1 Tablet(s) PO QD 09/2310/11/2011 Inactive TAKE ONE TABLET BY MOUTH GLYNN DAY Prevacid 30 mg Cap RxNorm: 870023 Capsule(s) PO 10/12/2011 01/25/2012 Inactive TAKE ONE CAPSULE BY MOUTH EVERY DAY Symbicort 160 mcg-4.5 mcg/actuation HFA Aerosol Inhaler RxNo rm: 5652084 2 Puff(s) INH BID 10/12/2011 05/08/2012 Inactive INHALE 2 PUFFS O RALLY TWO TIMES A DAY gabapentin 800 mg Tab RxNorm: 762729 1 Tablet(s) PO QD 10/12/2011 Inactive TAKE ONE TABLET BY MOUTH EVERY DAY MS Contin 200 mg Tab RxNorm: 310467 1 Tablet(s) PO BID 09/23/201111/2010 Inactive Endocet 10 mg-325 mg Tab RxNorm: 1187200 1-2 Tablet(s) PO Q4H 09/2310/22/2011 Inactive PRN PAIN Endocet 10 mg-325 mg Tab RxNorm: 7064463 1-2 Tablet(s) PO Q4H 08/2109/19/2011 Inactive PRN PAIN MS Contin 200 mg Tab RxNorm: 618558 1 Tablet(s) PO BID 08/21/2011 Inactive Diflucan 100 mg Tab RxNorm: 572576 1 Tablet(s) PO QD 08/10/201108/16 Inactive cefdinir 300 mg Cap RxNorm: 216485 2 Capsule(s) PO QD 08/10/201107/24 Inactive Reglan 10 mg Tab RxNorm: 234449 1 Tablet(s) PO AC & HS 07/15/2011 Inactive Endocet 10 mg-325 mg Tab RxNorm: 7137583 1-2 Tablet(s) PO Q4H 07/1508/13/2011 Inactive PRN PAIN One Touch Ultra Test strips RxNorm: Miscellaneous BID 06/11/2011 1 01/16/2014 Inactive TEST TWO TIMES A DAY lactulose 10 gram/15 mL Oral Soln RxNorm: 904384 Milliliter(s) PO 0 06/10/2011 10/11/2011 Inactive TAKE 1 TABLESPOON BY MOUTH O NCE DAILY Chantix Continuing Month Aníbal 1 mg Tab RxNorm: 734251 Tablet(s) PO 0 06/10/2011 11/02/2011 Inactive TAKE DIRECTED - PER PACK[employer] GE INSTRUCTIONS fluoxetine 40 mg Cap RxNorm: 181113 Capsule(s) PO 06/10/2011 02/02/20 Inactive TAKE ONE CAPSULE BY MOUTH EVERY MORNING Chantix Continuing Month Aníbal 1 mg Tab RxNorm: 623478 Ta blet(s) PO TAKE DIRECTED - PER PACKAGE INSTRUCTIONS 05/13/2011 06/09/2011 Inactive Soma 350 mg Tab RxNorm: 015503 Tablet(s) PO TAKE ON E TABLET BY MOUTH THREE TIMES A DAY 05/13/2011 04/18/2012 Inactive Chantix Continuing Month Aníbal 1 mg Tab RxNorm: 580037 Ta blet(s) PO as directed per package instructions. 04/22/2011 05/12/2011 Inactive Symbicort 160 mcg-4.5 mcg/Actuation HFA Aerosol Inhaler RxNo rm: 5554038 HFA Aerosol Inhaler INH INHALE 2 PUFFS ORALLY TWO TIMES A DAY 04/13/2011 Inactive Synthroid 112 mcg Tab RxNorm: 696033 Tablet(s) PO TAKE ONE TABLET BY MOUTH EVERY DAY 04/13/2011 10/12/2011 Inactive Premarin 0.9 mg Tab RxNorm: 589601 Tablet(s) PO TAKE ON E TABLET BY MOUTH EVERY DAY 04/13/2011 10/12/2011 Inactive gabapentin 800 mg Tab RxNorm: 651518 Tablet(s) PO TAKE ONE TABLET BY MOUTH EVERY DAY 04/13/2011 10/12/2011 Inactive Prevacid 30 mg Cap RxNorm: 024646 1 Capsule(s) PO QD 04/13/201110/11 Inactive Spiriva with HandiHaler 18 mcg & inhalation Caps RxNorm: 580 261 Capsule(s) INH INHALE CONTENTS OF 1 CAPSULE(S) WITH HANDIHALER ONCE DAILY 04/13/2011 12/21/2011 Inactive metformin ER 500 mg 24 hr Tab RxNorm: 385802 Tablet(s) PO TAKE ONE TABLET BY MOUTH EVERY DAY 04/13/2011 10/12/2011 Inactive Soma 350 mg Tab RxNorm: 406097 1 Tablet(s) PO QID 03/30/2011 02/13/20 19 Inactive fluoxetine 20 mg Cap RxNorm: 175659 Capsule(s) PO TAKE ONE CAPSULE BY MOUTH EVERY DAY 03/25/2011 10/12/2011 Inactive cefdinir 300 mg Cap RxNorm: 435165 2 Capsule(s) PO QD 03/19/201105/2011 Inactive 16.2 mg-0.1037 mg-0.0194 mg Tab RxNorm: 2027908 2 Tablet(s) PO TID PRN for gas and cramping 03/16/2011 07/13/2011 Inactive Soma 350 mg Tab RxNorm: 505946 2 Tablet(s) PO TID 03/16/2011 03/29/20 11 Inactive Chantix Starting Month Aníbal 0.5 mg (11)-1 mg (3x14) Tab s in a Dose Pack RxNorm: 711129 Tablet(s) PO as directed 03/02/2011 No Stop Date Active diazepam 10 mg Tab RxNorm: 421347 1 Tablet(s) PO BID 02/10/201101/19 Inactive Zofran 4 mg tablet RxNorm: 059701 1 Tablet(s) PO Q4H prn nausea 02/16/2011 Inactive Diflucan 100 mg Tab RxNorm: 490600 1 Tablet(s) PO QD 01/18/201101/24 Inactive Premarin 0.625 mg/g Vaginal Cream RxNorm: 381502 VAG In sert 1gm vaginally at bedtime 3 times weekly 01/18/2011 02/12/2019 Inactive loratadine 10 mg Tab RxNorm: 8628720 1 Tablet(s) PO QD 12/17/201003/2012 Inactive Spiriva with HandiHaler 18 mcg & inhalation Caps RxNorm: 580 261 1 Capsule(s) INH QD 12/17/2010 04/12/2011 Inactive Diflucan 100 mg Tab RxNorm: 972593 1 Tablet(s) PO QD 12/17/201012/23 Inactive diazepam 10 mg Tab RxNorm: 626699 1 Tablet(s) PO BID and PRN 201002/12/2019 Inactive One Touch Ultra Test Strips RxNorm: InVt BID Zainab t blood sugar at least twice daily. 11/11/2010 06/11/2011 Inactive fluoxetine 40 mg Cap RxNorm: 906618 1 Capsule(s) PO QAM 11/11/2010 Inactive diazepam 10 mg Tab RxNorm: 507840 1 Tablet(s) PO BID and PRN 200911/12/2010 Inactive Bactrim DS 800 mg-160 mg Tab RxNorm: 671263 1 Tablet(s) PO BID 09/2210/15/2010 Inactive fluoxetine 20 mg Cap RxNorm: 899039 1 Capsule(s) PO QD 10/02/201008/2011 Inactive Bactrim DS 800 mg-160 mg Tab RxNorm: 432565 1 Tablet(s) PO BID 01/201010/03/2010 Inactive Zofran 4 mg Tab RxNorm: 783607 1 Tablet(s) PO Q4H prn nausea 200910/16/2010 Inactive 16.2 mg-0.1037 mg-0.0194 mg Tab RxNorm: 9043583 2 Tablet(s) PO TID PRN for gas and cramping 09/17/2010 10/21/2010 Inactive Gabapentin 800 mg Tab RxNorm: 659728 1 Tablet(s) PO QD 09/16/2010 Inactive ProAir HFA 90 mcg/Actuation Aerosol Inhaler RxNorm: 896161 2 Puff(s) INH Q4H prn shortness of breath 09/15/2010 12/13/2010 Inactive gabapentin 800 mg Tab RxNorm: 583179 1 Tablet(s) PO QD 09/15/2010 Inactive Prevacid 30 mg Cap RxNorm: 728535 1 Capsule(s) PO QD 09/15/201004/12 Inactive loratadine 10 mg Tab RxNorm: 8521361 1 Tablet(s) PO QD 09/15/2010 Inactive Premarin 0.9 mg Tab RxNorm: 871114 1 Tablet(s) PO QD 09/15/201004/12 Inactive Synthroid 112 mcg Tab RxNorm: 410900 1 Tablet(s) PO QD 09/15/2010 Inactive metformin ER 500 mg 24 hr Tab RxNorm: 493205 1 Tablet(s) PO QD 08/2304/12/2011 Inactive Symbicort 160 mcg-4.5 mcg/Actuation Inhalation HFA Aer osol Inhaler RxNorm: 6987752 2 Puff(s) INH BID 09/15/2010 04/12/2011 Inactive diazepam 10 mg Tab RxNorm: 898942 1 Tablet(s) PO BID and PRN 200910/13/2010 Inactive Phentermine 37.5 mg Cap RxNorm: 011966 1 Capsule(s) PO QD 09/02/2010 11/02/2011 Inactive ProAir HFA 90 mcg/Actuation Aerosol Inhaler RxNorm: 099670 2 Puff(s) INH Q4H prn shortness of breath 08/07/2010 No Stop Date Active Premarin 0.9 mg Tab RxNorm: 022359 1 Tablet(s) PO QD 08/07/201009/14 Inactive Loratadine 10 mg Tab RxNorm: 5856239 1 Tablet(s) PO QD 08/07/2010 Inactive Lactulose 10 gram/15 mL Oral Soln RxNorm: 986505 1 Unit Dose PO QD 08/07/2010 02/12/2019 Inactive Zofran 4 mg Tab RxNorm: 179726 1 Tablet(s) PO Q4H prn nausea 2009 No Stop Date Active Gabapentin 800 mg Tab RxNorm: 964675 1 Tablet(s) PO QD 08/07/2010 Inactive Synthroid 112 mcg Tab RxNorm: 681836 1 Tablet(s) PO QD 08/07/2010 Inactive Metformin ER 500 mg 24 hr Tab RxNorm: 965382 1 Tablet(s) PO QD 07/2309/14/2010 Inactive Vitamin D 1,000 unit Tab RxNorm: 936628 1 Tablet(s) PO TID 08/07/2002/12/2019 Inactive Symbicort 160 mcg-4.5 mcg/Actuation Inhalation HFA Aer osol Inhaler RxNorm: 7476562 2 Puff(s) INH BID 08/07/2010 09/14/2010 Inactive Prevacid 30 mg Cap RxNorm: 275552 1 Capsule(s) PO QD 08/07/201009/14 Inactive Metformin ER 500 mg 24 hr Tab RxNorm: 303630 1 Tablet(s) PO QD 06/2308/06/2010 Inactive Vitamin D 1,000 unit Tab RxNorm: 438193 1 Tablet(s) PO TID 07/14/2008/06/2010 Inactive Synthroid 112 mcg Tab RxNorm: 123646 1 Tablet(s) PO QD 07/14/2010 Inactive Lactulose 10 gram/15 mL Oral Soln RxNorm: 140876 1 Unit Dose PO QD 07/14/2010 08/06/2010 Inactive Levaquin 500 mg Tab RxNorm: 611195 1 Tablet(s) PO QD 07/14/201007/27 Inactive Premarin 0.9 mg Tab RxNorm: 713198 1 Tablet(s) PO QD 07/14/201008/06 Inactive ProAir HFA 90 mcg/Actuation Aerosol Inhaler RxNorm: 854301 2 Puff(s) INH Q4H prn shortness of breath 07/14/2010 No Stop Date Active Prevacid 30 mg Cap RxNorm: 798624 1 Capsule(s) PO QD 07/14/201008/06 Inactive Zofran 4 mg Tab RxNorm: 354974 1 Tablet(s) PO Q4H prn nausea 2009 No Stop Date Active Symbicort 160 mcg-4.5 mcg/Actuation Inhalation HFA Aer osol Inhaler RxNorm: 4071149 2 Puff(s) INH BID 07/14/2010 08/06/2010 Inactive Loratadine 10 mg Tab RxNorm: 4906955 1 Tablet(s) PO QD 07/14/2010 Inactive Gabapentin 800 mg Tab RxNorm: 100657 1 Tablet(s) PO QD 07/14/2010 Inactive Metformin ER 500 mg 24 hr Tab RxNorm: 736367 1 Tablet(s) PO 010 07/13/2010 Inactive Diazepam 10 mg Tab RxNorm: 292744 1 Tablet(s) PO BID and PRN 200909/06/2010 Inactive Premarin 0.9 mg Tab RxNorm: 569429 1 Tablet(s) PO QD 06/09/201007/13 Inactive Zofran 4 mg Tab RxNorm: 410975 1 Tablet(s) PO Q4H prn nausea 2009 No Stop Date Active ProAir HFA 90 mcg/Actuation Aerosol Inhaler RxNorm: 576867 2 Puff(s) INH Q4H prn shortness of breath 06/09/2010 No Stop Date Active Gabapentin 800 mg Tab RxNorm: 850375 1 Tablet(s) PO QD 06/09/2010 Inactive Loratadine 10 mg Tab RxNorm: 7320274 1 Tablet(s) PO QD 06/09/2010 Inactive Lactulose 10 gram/15 mL Oral Soln RxNorm: 326212 1 Unit Dose PO QD 06/09/2010 07/13/2010 Inactive Prevacid 30 mg Cap RxNorm: 441903 1 Capsule(s) PO QD 06/09/201007/13 Inactive Synthroid 112 mcg Tab RxNorm: 007882 1 Tablet(s) PO QD 06/09/2010 Inactive Symbicort 160 mcg-4.5 mcg/Actuation Inhalation HFA Aer osol Inhaler RxNorm: 9052192 2 Puff(s) INH BID 06/09/2010 07/13/2010 Inactive Omnicef 300 mg Cap RxNorm: 508654 2 Capsule(s) PO QD 05/07/201005/20 Inactive Metformin 500 mg Tab RxNorm: 921746 1 Tablet(s) PO QD 05/06/201005/22 Inactive ProAir HFA 90 mcg/Actuation Aerosol Inhaler RxNorm: 087184 2 Puff(s) INH Q4H prn shortness of breath 05/06/2010 No Stop Date Active lactulose 10 gram/15 mL Oral Soln RxNorm: 588904 1 Unit Dose PO QD 05/06/2010 06/10/2011 Inactive Loratadine 10 mg Tab RxNorm: 9696045 1 Tablet(s) PO QD 05/06/2010 Inactive Synthroid 112 mcg Tab RxNorm: 017754 1 Tablet(s) PO QD 05/06/2010 Inactive Symbicort 160 mcg-4.5 mcg/Actuation Inhalation HFA Aer osol Inhaler RxNorm: 5101405 2 Puff(s) INH BID 05/06/2010 06/08/2010 Inactive Gabapentin 800 mg Tab RxNorm: 132156 1 Tablet(s) PO QD 05/06/2010 Inactive 16.2 mg-0.1037 mg-0.0194 mg Tab RxNorm: 9780508 2 Tablet(s) PO TID PRN for gas and cramping 05/06/2010 05/12/2010 Inactive Zofran 4 mg Tab RxNorm: 367731 1 Tablet(s) PO Q4H prn nausea 200904/13/2010 Inactive MS Contin 60 mg Tab RxNorm: 067148 3 Tablet(s) PO BID 04/09/201004/22 Inactive Soma 350 mg Tab RxNorm: 555646 2 Tablet(s) PO TID 04/09/2010 05/08/20 10 Inactive Symbicort 160 mcg-4.5 mcg/Actuation Inhalation HFA Aer osol Inhaler RxNorm: 0078319 2 Puff(s) INH BID 04/08/2010 05/05/2010 Inactive Doxycycline 100 mg Cap RxNorm: 6411162 1 Capsule(s) PO BID 04/08/20 10 04/17/2010 Inactive Triamterene-Hydrochlorothiazide 37.5 mg-25 mg Cap RxNorm: 19 8316 1 Capsule(s) PO QAM 04/08/2010 09/04/2010 Inactive fluoxetine 40 mg Cap RxNorm: 857227 1 Capsule(s) PO QAM 04/08/2010 Inactive Morphine SR 120 mg multiphase 24 hr Cap RxNorm: 945821 1 Capsul e(s) PO 03/11/2010 04/07/2010 Inactive Endocet 10 mg-325 mg Tab RxNorm: 7676142 1-2 Tablet(s) PO Q4H LA N PAIN 03/11/2010 04/09/2010 Inactive Savella 100 mg Tab RxNorm: 147266 1 Tablet(s) PO BID 03/10/201004/09 Inactive Soma 350 mg Tab RxNorm: 126194 1 Tablet(s) PO TID prn spasm 0404/09/2010 Inactive Savella 100 mg Tab RxNorm: 480385 1 Tablet(s) PO BID 02/03/201004/09 Inactive Aspirin 81 mg Tab RxNorm: 759701 1 Tablet(s) PO QD No Start Date Active Zyrtec 10 mg Tab RxNorm: 5341783 1 Tablet(s) PO QD No Start Date Active One Touch Ultra Test Strips RxNorm: Misc test at least t wice daily. No Start Date Active coenzyme Q10 200 mg capsule RxNorm: 697074 1 Capsule(s) PO QD No Star t Date Active One Touch Ultra Test Strips RxNorm: InVt BID Zainab t blood sugar at least twice daily. No Start Date 11/10/2010 Inactive Gabapentin 800 mg Tab RxNorm: 906628 1 Tablet(s) PO QD No Start Date 05/05/2010 Inactive Abilify 5 mg tablet RxNorm: 200761 1 Tablet(s) PO QD No Start Date Inactive Chantix 1 mg Tab RxNorm: 078529 1 Tablet(s) PO BID No Start Date 10/22 Inactive Ozempic 0.25 mg or 0.5 mg (2 mg/1.5 mL) subcutaneous p en injector RxNorm: 9781015 .25 Milligram(s) SQ QW No Start Date 07/04/2019 Inactive lancets 28 gauge RxNorm: Miscellaneous As needed for blo od glucose sticks No Start Date 08/23/2013 Inactive potassium chloride ER 20 mEq tablet,extended release RxNorm: 480886 2 Tablet(s) PO QD No Start Date 09/26/2018 Inactive Ventolin HFA 90 mcg/actuation Aerosol Inhaler RxNorm: 357291 2 Puff(s) INH Q4H prn No Start Date 01/17/2012 Inactive potassium chloride ER 20 mEq tablet,extended release RxNorm: 102334 2 Tablet(s) PO QD No Start Date 10/19/2018 Inactive Januvia 100 mg tablet RxNorm: 007632 1 Tablet(s) PO QD No Start Date 09/10/2015 Inactive Medrol (Aníbal) 4 mg Tabs in a Dose Pack RxNorm: 807887 Tablet(s) PO N o Start Date 08/09/2011 Inactive as directed Zithromax Z-Aníbal 250 mg Tab RxNorm: 056971 Tablet(s) PO No Start Date 01/25/2012 Inactive as directed vitamin B6-vitamin E-magnesium tablet RxNorm: 1 Tablet(s ) PO QHS with INH No Start Date 03/30/2018 Inactive prednisone 20 mg Tab RxNorm: 100764 1 Tablet(s) PO TID for 1wk then 1 po BID for 1wk No Start Date 01/25/2012 Inactive furosemide 40 mg tablet RxNorm: 657822 1 Tablet(s) PO QAM No Start Date 10/09/2018 Inactive Vitamin D3 1000 units Capsule RxNorm: 1 Capsule(s) PO TID No S tart Date 03/19/2015 Inactive Zofran 4 mg Tab RxNorm: 132933 1 Tablet(s) PO Q4H prn nausea No Sta rt Date 04/13/2010 Inactive Premarin 0.625 mg/g Vaginal Cream RxNorm: 563501 1 Gram (s) VAG QHS 3 times a week No Start Date 09/22/2017 Inactive oxycodone 10 mg tablet RxNorm: 0431070 1-2 Tablet(s) PO QID as n eeded for pain No Start Date 11/04/2015 Inactive Nicoderm CQ 21 mg/24 hr daily Patch RxNorm: 493305 1 Applicatio n TD QD No Start Date 08/05/2015 Inactive Topamax 50 mg tablet RxNorm: 648884 1/2 Tablet(s) PO QH S for 1wk then 1 po q HS for 1wk then 2 po q HS No Start Date 06/27/2012 Inactive Chantix Starting Month Aníbal 0.5 mg (11)-1 mg (3x14) Tab s in a Dose Pack RxNorm: 650618 Tablet(s) PO as directed No Start Date 03/01/2011 Inactive Trulicity 0.75 mg/0.5 mL subcutaneous pen injector RxNorm: 1 638920 Milliliter(s) SQ No Start Date 07/04/2019 Inactive Medrol (Aníbal) 4 mg Tabs in a Dose Pack RxNorm: 814239 Tablet(s) PO N o Start Date 01/25/2012 Inactive as directed Duragesic 100 mcg/hr Transderm Patch RxNorm: 496381 2 A pplication TD Q48H for pain No Start Date 09/05/2013 Inactive Premarin 0.9 mg Tab RxNorm: 608142 1 Tablet(s) PO QD No Start Date Inactive Zithromax Z-Aníbal 250 mg Tab RxNorm: 686976 Tablet(s) PO as direc chinmay No Start Date 01/25/2012 Inactive ondansetron 8 mg disintegrating tablet RxNorm: 151949 1 Tablet(s) PO Q6H as needed No Start Date 10/10/2018 Inactive oxycodone 15 mg tablet RxNorm: 7118099 1 Tablet(s) PO QID as nee ded for pain No Start Date 03/05/2019 Inactive ProAir HFA 90 mcg/Actuation Aerosol Inhaler RxNorm: 866360 2 Puff(s) INH Q4H prn for wheezing or shortness of breath No Start Date 12/21/2011 Inactive pravastatin 40 mg tablet RxNorm: 657983 1/2 Tablet(s) PO QOD No Sta rt Date 04/09/2015 Inactive ipratropium-albuterol 0.5 mg-3 mg(2.5 mg base)/3 mL ne bulization soln RxNorm: 3580648 1 Unit Dose INH Q4H as needed No Start Date 09/09/2016 Inactive furosemide 40 mg tablet RxNorm: 521336 1 Tablet(s) PO QAM as ne eded No Start Date 09/24/2019 Inactive Vitamin D2 oral RxNorm: 4018 oral No Start Date 03/18/2015 Inacti ve pravastatin 40 mg tablet RxNorm: 138874 1/2 Tablet(s) PO QD No Star t Date 04/09/2015 Inactive ondansetron HCl 4 mg tablet RxNorm: 612141 1 Tablet(s) PO Q4H as needed for nausea and vomiting No Start Date 04/07/2016 Inactive furosemide 40 mg tablet RxNorm: 886555 2 Tablet(s) PO QAM No Start Date 09/26/2018 Inactive gabapentin 800 mg tablet RxNorm: 393909 1/2 Tablet(s) PO BID No Sta rt Date 06/21/2017 Inactive gabapentin 800 mg tablet RxNorm: 716313 1/2 Tablet(s) PO BID No Sta rt Date 07/05/2017 Inactive ProAir HFA 90 mcg/Actuation Aerosol Inhaler RxNorm: 802885 2 Puff(s) INH Q4H prn shortness of breath No Start Date 05/05/2010 Inactive scopolamine 1 mg over 3 days transdermal patch RxNorm: 17126 2 1 Application TD behind ear. Take off after three days No Start Date 10/10/2018 Inactive Metformin 500 mg Tab RxNorm: 337401 1 Tablet(s) PO QD No Start Date 0 05/05/2010 Inactive MS Contin 200 mg Tab RxNorm: 840415 1 Tablet(s) PO BID No Start Date 08/20/2011 Inactive Belladonna-Phenobarbital 48 mg tablet,extended release RxNor m: 2 Tablet(s) PO TID No Start Date 06/04/2016 Inactive Synthroid 112 mcg Tab RxNorm: 797316 1 Tablet(s) PO QD No Start Date 05/05/2010 Inactive Zegerid 40 mg-1.1 gram Cap RxNorm: 993857 1 Capsule(s) PO QD No Sta rt Date 01/25/2012 Inactive Premarin 0.625 mg/g Vaginal Cream RxNorm: 821639 VAG In sert 1gm vaginally at bedtime 3 times weekly No Start Date 01/17/2011 Inactive potassium chloride ER 20 mEq tablet,extended release RxNorm: 675528 1 Tablet(s) PO QD No Start Date 04/24/2019 Inactive methocarbamol 750 mg tablet RxNorm: 432177 2 Tablet(s) PO TID as needed for muscle spasm No Start Date 07/08/2014 Inactive Biaxin XL Aníbal 500 mg 24 hr Tab RxNorm: 455932 Tablet(s) PO as d irected No Start Date 04/24/2013 Inactive Vitamin D3 1,000 unit tablet RxNorm: 097646 3 Tablet(s) PO QD No St art Date 06/01/2017 Inactive Morphine SR 120 mg multiphase 24 hr Cap RxNorm: 984187 1 Capsul e(s) PO BID No Start Date 04/09/2010 Inactive Silvadene 1 % topical cream RxNorm: 012280 1 Application TOP BI D to burn area No Start Date 01/31/2017 Inactive Prednisone 20 mg Tab RxNorm: 977405 1 Tablet(s) PO TID for 3days then BID for 4days No Start Date 01/25/2012 Inactive gabapentin 600 mg tablet RxNorm: 404041 1 Tablet(s) PO BID No Start Date 01/21/2015 Inactive topiramate 50 mg tablet RxNorm: 154239 1 Tablet(s) PO QHS No Start Date 03/30/2018 Inactive Januvia 100 mg tablet RxNorm: 220198 1/2 Tablet(s) PO QD No Start D ate 12/25/2015 Inactive Diazepam 10 mg Tab RxNorm: 872246 1 Tablet(s) PO BID and PRN No Sta rt Date 06/08/2010 Inactive Medication Administered No Medication Administered data Immunizations Vaccine Codes Date Status Influenza CVX: 141 09/28/2012 Pneumovax Unknown 09/28/2012 Influenza (Adult) CVX: 141 09/02/2010 Results No Results data Procedures Procedure Codes Date THER/PROPH/DIAG INJ SC/IM CPT-4: 88088 07/10/2019 METHYLPREDNISOLONE INJECTION CPT-4: J2930 07/10/2019 URINALYSIS NONAUTO W/O SCOPE CPT-4: 77654 09/06/2018 URINE CULTURE/ COLONY COUNT CPT-4: 38758 09/06/2018 DRAIN/INJECT JOINT/BURSA CPT-4: 45975 04/29/2017 TRIAMCINOLONE ACET INJ NOS CPT-4: J3301 04/29/2017 DEXAMETHASONE SODIUM PHOS CPT-4: J1100 04/29/2017 INFLUENZA ASSAY W/OPTIC CPT-4: 96837 12/01/2016 RESPIRATORY CULTURE & STAIN CPT-4: 09593 07/09/2016 TB INTRADERMAL TEST CPT-4: 18962 04/21/2016 DRAIN/INJECT JOINT/BURSA CPT-4: 01448 11/07/2013 METHYLPREDNISOLONE 40 MG INJ CPT-4: J1030 11/07/2013 TRIAMCINOLONE ACET INJ NOS CPT-4: J3301 11/07/2013 DRAIN/INJECT JOINT/BURSA CPT-4: 73875 08/08/2013 METHYLPREDNISOLONE 40 MG INJ CPT-4: J1030 08/08/2013 TRIAMCINOLONE ACET INJ NOS CPT-4: J3301 08/08/2013 FLU VACCINE 3 YRS & > IM UP 64 CPT-4: 21064 2 PNEUMOCOCCAL VACC 23 ADITYA IM CPT-4: 69669 09/28/2012 IMMUNIZATION ADMIN CPT-4: 14607 09/28/2012 IMMUNIZATION ADMIN EACH ADD CPT-4: 38426 09/28/2012 FLU VACCINE 3 YRS & > IM UP 64 CPT-4: 36595 0 IMMUNIZATION ADMIN CPT-4: 52471 09/02/2010 METHYLPREDNISOLONE INJECTION CPT-4: J2930 05/07/2010 THER/PROPH/DIAG INJ SC/IM CPT-4: 60980 05/07/2010 Vital Signs Date Vital 11/29/2019 Blood [...] 1: 122/78 Code: 8480-6 BMI: 29.5 Code: 82058-6 Heart Rate 1: 76 bpm Height: 5'4" Respiratory Rate: 20 bpm SpO2: 96% Tempera ture: 37.0 (C) / 98.6 (F) Weight: 172 lbs 01/25/2019 Blood Pressure 1: 132/80 Code: 8480-6 BMI: 29.7 Code: 70586-4 Heart Rate 1: 84 bpm Height: 5'4" Respiratory Rate: 22 bpm SpO2: 98% Tempera ture: 36.9 (C) / 98.4 (F) Weight: 173 lbs 01/03/2019 Blood Pressure 1: 116/70 Code: 8480-6 BMI: 29.5 Code: 43303-5 Heart Rate 1: 92 bpm Height: 5'4" Respiratory Rate: 24 bpm SpO2: 98% Tempera ture: 37.2 (C) / 98.9 (F) Weight: 172 lbs 11/21/2018 Blood Pressure 1: 146/82 Code: 8480-6 BMI: 28.2 Code: 90242-0 Heart Rate 1: 88 bpm Height: 5'4" Respiratory Rate: 22 bpm SpO2: 97% Tempera ture: 36.9 (C) / 98.4 (F) Weight: 164 lbs 10/27/2018 Blood Pressure 1: 122/70 Code: 8480-6 BMI: 27.6 Code: 18750-4 Heart Rate 1: 88 bpm Height: 5'4" Respiratory Rate: 20 bpm SpO2: 96% Tempera ture: 36.8 (C) / 98.3 (F) Weight: 161 lbs 10/18/2018 Blood Pressure 1: 126/70 Code: 8480-6 BMI: 28.3 Code: 49487-6 Heart Rate 1: 76 bpm Height: 5'4" Respiratory Rate: 20 bpm SpO2: 95% Tempera ture: 37.0 (C) / 98.6 (F) Weight: 165 lbs 09/27/2018 Blood Pressure 1: 124/78 Code: 8480-6 BMI: 27.1 Code: 66450-5 Heart Rate 1: 88 bpm Height: 5'4" Respiratory Rate: 20 bpm SpO2: 98% Tempera ture: 36.4 (C) / 97.6 (F) Weight: 158 lbs 09/14/2018 Blood Pressure 1: 140/72 Code: 8480-6 BMI: 26.1 Code: 66781-3 Heart Rate 1: 100 bpm Height: 5'4" Respiratory Rate: 20 bpm SpO2: 97% Tempera ture: 36.9 (C) / 98.4 (F) Weight: 152 lbs 09/06/2018 Blood Pressure 1: 156/82 Code: 8480-6 BMI: 26.3 Code: 93959-0 Heart Rate 1: 100 bpm Height: 5'4" Respiratory Rate: 28 bpm SpO2: 95% Tempera ture: 37.2 (C) / 98.9 (F) Weight: 153 lbs 08/16/2018 Blood Pressure 1: 130/78 Code: 8480-6 Heart Rate 1: 87 bpm Respiratory Rate: 24 bpm SpO2: 94% Temperature: 36.9 (C) / 98.4 (F) We ight: 147 lbs 8 oz 07/07/2018 Blood Pressure 1: 116/78 Code: 8480-6 BMI: 22.7 Code: 98141-6 Heart Rate 1: 88 bpm Height: 5'4" Respiratory Rate: 22 bpm SpO2: 98% Tempera ture: 36.5 (C) / 97.7 (F) Weight: 132 lbs 05/31/2018 Blood Pressure 1: 128/78 Code: 8480-6 BMI: 22.3 Code: 85522-1 Heart Rate 1: 92 bpm Height: 5'4" Respiratory Rate: 26 bpm SpO2: 94% Tempera ture: 36.7 (C) / 98.1 (F) Weight: 130 lbs 03/31/2018 Blood Pressure 1: 136/78 Code: 8480-6 BMI: 21.5 Code: 77023-2 Heart Rate 1: 76 bpm Height: 5'4" Respiratory Rate: 24 bpm SpO2: 95% Tempera ture: 36.8 (C) / 98.3 (F) Weight: 125 lbs 01/26/2018 Blood Pressure 1: 142/64 Code: 8480-6 BMI: 20.6 Code: 72691-4 Heart Rate 1: 90 bpm Height: 5'4" Respiratory Rate: 24 bpm SpO2: 92% Tempera ture: 36.3 (C) / 97.3 (F) Weight: 120 lbs 10/26/2017 Blood Pressure 1: 124/70 Code: 8480-6 BMI: 20.3 Code: 60100-9 Heart Rate 1: 76 bpm Height: 5'4" Respiratory Rate: 22 bpm SpO2: 94% Tempera ture: 36.7 (C) / 98.1 (F) Weight: 118 lbs 09/23/2017 Blood Pressure 1: 106/70 Code: 8480-6 BMI: 19.2 Code: 86890-1 Heart Rate 1: 76 bpm Height: 5'4" Respiratory Rate: 20 bpm SpO2: 94% Tempera ture: 36.8 (C) / 98.3 (F) Weight: 112 lbs 08/12/2017 Blood Pressure 1: 116/68 Code: 8480-6 BMI: 20.1 Code: 93040-8 Heart Rate 1: 80 bpm Height: 5'4" Respiratory Rate: 22 bpm SpO2: 95% Tempera ture: 36.8 (C) / 98.2 (F) Weight: 117 lbs 07/06/2017 Blood Pressure 1: 136/78 Code: 8480-6 BMI: 20.6 Code: 35134-5 Heart Rate 1: 76 bpm Height: 5'4" Respiratory Rate: 24 bpm SpO2: 96% Tempera ture: 36.8 (C) / 98.2 (F) Weight: 120 lbs 06/02/2017 Blood Pressure 1: 112/70 Code: 8480-6 Heart Rate 1: 92 bpm Height: 5'4" Respiratory Rate: 24 bpm SpO2: 95% Temperature: 37.0 (C) / 98.6 (F) Weight: 04/29/2017 Blood Pressure 1: 94/52 Code: 8480-6 BMI: 19.6 C ode: 55314-9 Heart Rate 1: 84 bpm Height: 5'4" [...] 92/58 Code: 8480-6 BMI: 19.2 C ode: 88675-0 Heart Rate 1: 84 bpm Height: 5'4" Respiratory Rate: 26 bpm SpO2: 95% Tempera ture: 36.7 (C) / 98.0 (F) Weight: 112 lbs 12/01/2016 Blood Pressure 1: 114/70 Code: 8480-6 BMI: 19.2 Code: 25040-9 Heart Rate 1: 96 bpm Height: 5'4" Respiratory Rate: 28 bpm SpO2: 93% Tempera ture: 38.3 (C) / 101.0 (F) Weight: 112 lbs 10/27/2016 Blood Pressure 1: 126/66 Code: 8480-6 BMI: 19.6 Code: 60442-2 Heart Rate 1: 92 bpm Height: 5'4" Respiratory Rate: 28 bpm SpO2: 90% Tempera ture: 36.8 (C) / 98.3 (F) Weight: 114 lbs 09/09/2016 Blood Pressure 1: 126/74 Code: 8480-6 Heart Rate 1: 104 bpm Height: 5'4" Respiratory Rate: 32 bpm SpO2: 88% Temperature: 37 .2 (C) / 99.0 (F) 08/26/2016 Blood Pressure 1: 134/82 Code: 8480-6 BMI: 22.0 Code: 90557-1 Heart Rate 1: 84 bpm Height: 5'4" Respiratory Rate: 24 bpm SpO2: 94% Tempera ture: 36.8 (C) / 98.3 (F) Weight: 128 lbs 05/21/2016 Blood Pressure 1: 142/80 Code: 8480-6 BMI: 21.6 Code: 08358-1 Heart Rate 1: 104 bpm Height: 5'4" Respiratory Rate: 22 bpm SpO2: 93% Tempera ture: 36.0 (C) / 96.8 (F) Weight: 126 lbs 03/25/2016 Blood Pressure 1: 126/62 Code: 8480-6 Heart Rate 1: 88 bpm Respiratory Rate: 20 bpm SpO2: 92% Temperature: 36.8 (C) / 98.3 (F) We ight: 130 lbs 01/23/2016 Blood Pressure 1: 146/82 Code: 8480-6 BMI: 24.1 Code: 42013-2 Heart Rate 1: 92 bpm Height: 5'3" Respiratory Rate: 22 bpm Temperature: 37 .1 (C) / 98.8 (F) Weight: 136 lbs 12/26/2015 Blood Pressure 1: 142/78 Code: 8480-6 BMI: 24.6 Code: 78597-8 Heart Rate 1: 78 bpm Height: 5'3" Respiratory Rate: 20 bpm Temperature: 36 .7 (C) / 98.1 (F) Weight: 139 lbs 12/03/2015 Blood Pressure 1: 126/60 Code: 8480-6 BMI: 24.6 Code: 30932-8 Heart Rate 1: 100 bpm Height: 5'3" Respiratory Rate: 28 bpm Temperature: 37 .6 (C) / 99.6 (F) Weight: 139 lbs 09/10/2015 Blood Pressure 1: 124/64 Code: 8480-6 BMI: 23.7 Code: 36159-6 Heart Rate 1: 88 bpm Height: 5'3" Respiratory Rate: 24 bpm SpO2: 95% Tempera ture: 36.4 (C) / 97.6 (F) Weight: 134 lbs 08/06/2015 Blood Pressure 1: 114/76 Code: 8480-6 BMI: 23.2 Code: 20355-9 Heart Rate 1: 88 bpm Height: 5'3" Respiratory Rate: 22 bpm Temperature: 36 .6 (C) / 97.9 (F) Weight: 131 lbs 07/18/2015 Blood Pressure 1: 144/78 Code: 8480-6 BMI: 23.7 Code: 61069-8 Heart Rate 1: 84 bpm Height: 5'3" Respiratory Rate: 20 bpm Temperature: 37 .2 (C) / 99.0 (F) Weight: 134 lbs 04/10/2015 Blood Pressure 1: 110/64 Code: 8480-6 Heart Rate 1: 80 bpm Height: Respiratory Rate: 20 bpm Temperature: 37.1 (C) / 98.8 (F) Weight: 03/05/2015 Blood Pressure 1: 136/80 Code: 8480-6 BMI: 23.9 Code: 93462-3 Heart Rate 1: 76 bpm Height: 5'3" Respiratory Rate: 24 bpm Temperature: 37 .0 (C) / 98.6 (F) Weight: 135 lbs 01/30/2015 Blood Pressure 1: 142/80 Code: 8480-6 BMI: 23.0 Code: 53720-1 Heart Rate 1: 96 bpm Height: 5'3" Respiratory Rate: 22 bpm Temperature: 36 .2 (C) / 97.2 (F) Weight: 130 lbs 01/02/2015 Blood Pressure 1: 124/70 Code: 8480-6 BMI: 23.4 Code: 43041-2 Heart Rate 1: 84 bpm Height: 5'3" Respiratory Rate: 24 bpm SpO2: 95% Tempera ture: 36.9 (C) / 98.5 (F) Weight: 132 lbs 10/03/2014 Blood Pressure 1: 106/68 Code: 8480-6 BMI: 22.5 Code: 56252-7 Heart Rate 1: 88 bpm Height: 5'3" Respiratory Rate: 24 bpm Temperature: 37 .0 (C) / 98.6 (F) Weight: 127 lbs 08/27/2014 Blood Pressure 1: 124/68 Code: 8480-6 BMI: 21.1 Code: 29841-3 Heart Rate 1: 88 bpm Height: 5'3" [...] 1: 120/70 Code: 8480-6 BMI: 19.2 Code: 74776-9 Heart Rate 1: 70 bpm Height: 5'4" Respiratory Rate: 20 bpm Temperature: 36 .9 (C) / 98.4 (F) Weight: 112 lbs 06/28/2013 Blood Pressure 1: 102/68 Code: 8480-6 BMI: 19.6 Code: 43482-1 Heart Rate 1: 76 bpm Height: 5'4" Respiratory Rate: 20 bpm Temperature: 36 .8 (C) / 98.2 (F) Weight: 114 lbs 05/31/2013 Blood Pressure 1: 106/70 Code: 8480-6 BMI: 18.9 Code: 40453-5 Heart Rate 1: 100 bpm Height: 5'4" Respiratory Rate: 20 bpm Temperature: 36 .4 (C) / 97.6 (F) Weight: 110 lbs 05/03/2013 Blood Pressure 1: 126/70 Code: 8480-6 BMI: 19.1 Code: 87013-3 Heart Rate 1: 88 bpm Height: 5'4" Respiratory Rate: 20 bpm Temperature: 37 .1 (C) / 98.8 (F) Weight: 111 lbs 04/25/2013 Blood Pressure 1: 114/68 Code: 8480-6 BMI: 19.4 Code: 82247-1 Heart Rate 1: 92 bpm Height: 5'4" Respiratory Rate: 24 bpm SpO2: 96% Tempera ture: 37.7 (C) / 99.8 (F) Weight: 113 lbs 03/08/2013 Blood Pressure 1: 94/68 Code: 8480-6 BMI: 21.3 C ode: 64081-7 Heart Rate 1: 88 bpm Height: 5'4" Respiratory Rate: 24 bpm Temperature: 37 .0 (C) / 98.6 (F) Weight: 124 lbs 02/07/2013 Blood Pressure 1: 106/64 Code: 8480-6 BMI: 21.8 Code: 39792-8 Heart Rate 1: 84 bpm Height: 5'4" Respiratory Rate: 22 bpm Temperature: 36 .8 (C) / 98.2 (F) Weight: 127 lbs 01/10/2013 Blood Pressure 1: 122/68 Code: 8480-6 BMI: 21.6 Code: 64411-6 Heart Rate 1: 94 bpm Height: 5'4" SpO2: 94% Temperature: 36.7 (C) / 98.1 (F) Weight: 126 lbs 09/28/2012 Blood Pressure 1: 124/78 Code: 8480-6 BMI: 24.9 Code: 55247-1 Heart Rate 1: 92 bpm Height: 5'4" Respiratory Rate: 20 bpm Temperature: 36 .7 (C) / 98.1 (F) Weight: 145 lbs 06/28/2012 Blood Pressure 1: 134/80 Code: 8480-6 BMI: 24.9 Code: 20827-8 Heart Rate 1: 76 bpm Height: 5'4" Respiratory Rate: 20 bpm Temperature: 36 .8 (C) / 98.2 (F) Weight: 145 lbs 05/03/2012 Blood Pressure 1: 108/62 Code: 8480-6 BMI: 25.6 Code: 73763-3 Heart Rate 1: 88 bpm Height: 5'4" Temperature: 36.2 (C) / 97.2 (F) Weight: 149 lbs 03/01/2012 Blood Pressure 1: 124/66 Code: 8480-6 BMI: 25.1 Code: 86519-5 Heart Rate 1: 76 bpm Height: 5'4" Respiratory Rate: 20 bpm Temperature: 36 .6 (C) / 97.9 (F) Weight: 146 lbs 01/26/2012 Blood Pressure 1: 118/82 Code: 8480-6 BMI: 25.1 Code: 89260-2 Heart Rate 1: 74 bpm Height: 5'4" Temperature: 36.8 (C) / 98.2 (F) Weight: 146 lbs 11/03/2011 Blood Pressure 1: 126/80 Code: 8480-6 BMI: 27.3 Code: 25770-2 Heart Rate 1: 72 bpm Height: 5'4" [...] Temperature: 36.4 (C) / 97.6 (F) [facility] 03/19/2011 Blood Pressure 1: 122/76 [...] prozac Encounters Encounter Performer Location Codes Date ([id number]) OFFICE/OUTPATIENT VISIT EST Diagnosis: Chronic pain syndrome[ICD10: G89.4] Diagnosis: Localized edema[ICD10: R60.0] Diagnosis: Chronic obstructive pulmonary disease, unspecified[ICD10: J44.9] Diagnosis: Other fatigue[ICD10: R53.83] Diagnosis: Muscle weakness (generalized)[ICD10: M62.81] Diagnosis: Spinal stenosis, lumbar region with neurogenic claudication[ICD10: M48.062] Vika RENTERIA DO [facility] CPT-4: 39635 11/29/2019 ([id number]) OFFICE/OUTPATIENT VISIT EST Diagnosis: Chronic pain syndrome[ICD10: G89.4] Diagnosis: Lumbar degenerative disc disease[ICD10: M51.36] Diagnosis: Muscle spasm[ICD10: M62.838] Diagnosis: Spinal stenosis, lumbar region with neurogenic claudication[ICD10: M48.062] Diagnosis: Spondylosis without myelopathy or radiculopathy, 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] Vika RENTERIA [facility] CPT-4: 13360 10/30/2019 ([id number]) OFFICE/OUTPATIENT VISIT EST Diagnosis: Chronic pain syndrome[ICD10: G89.4] Vika RENTERIA [facility] CPT-4: 83205 10/25/2019 ([id number]) OFFICE/OUTPATIENT VISIT EST Diagnosis: Epigastric pain[ICD10: R10.13] Diagnosis: Nausea[ICD10: R11.0] Diagnosis: Chronic obstructive pulmonary disease, unspecified[ICD10: J44.9] Vika RENTERIA [facility] CPT-4: 33702 07/26/2019 ([id number]) OFFICE/OUTPATIENT VISIT EST Diagnosis: Chronic obstructive pulmonary disease with (acute) exacerbation[ICD10: J44.1] Diagnosis: Chronic respiratory failure with hypoxia[ICD10: J96.11] Diagnosis: Other fatigue[ICD10: R53.83] Diagnosis: Edema, unspecified[ICD10: R60.9] Viak RENTERIA [facility] CPT-4: 94001 07/19/2019 ([id number]) OFFICE/OUTPATIENT VISIT EST Diagnosis: Chronic obstructive pulmonary disease with acute lower respiratory infection[ICD10: J44.0] Vika RENTERIA DO [facility] CPT-4: 90710 07/10/2019 ([id number]) OFFICE/OUTPATIENT VISIT EST Diagnosis: Type 2 diabetes mellitus with hyperglycemia[ICD10: E11.65] Diagnosis: Other infective otitis externa,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
--- OUTSIDE RECORDS SUMMARY | 2020-04-24 23:17 | XMS REPORT | CCD ---
Author Author Yana Renteria D.O. Organization [facility] Address [address] [place] [address] Phone Care Team Providers Care International Affairs Vice President Name Role Phone Vika Renteria D.O., PP Unavailable CCM Unavailable Summary Purpose Interface Exchange Insurance Providers Payer name Policy type / Coverage type Covered green party ID Effective Begin Date Effective End Date [employer] [facility] [place] Medicaid [id number] 2018 U nknown Family History Family History data not found Social History Social History Element Codes Description Effective Dates Marital status Unknown 06/28/[address]: [id number] Currently smokes tobacco 05/2013 Allergies, Adverse Reactions, [...] Start Date Stop Date Status Fill Instructions Pulmicort 1 mg/2 mL suspension for nebulization RxNorm: 6168 19 USE ONE VIAL VIA NEBULIZER BY MOUTH TWICE A DAY 12/21/2019 No Stop Date Active furosemide 40 mg tablet RxNorm: 272570 TAKE ONE TABLET BY MOUTH EVERY MORNING NEEDED 12/20/2019 No Stop Date Active levothyroxine 25 mcg tablet RxNorm: 083992 TAKE ONE TAB LET BY MOUTH EVERY MORNING 12/20/2019 No Stop Date Active MS Contin 200 mg tablet,extended release RxNorm: 262540 1 Tablet(s) Oral two times a day 12/05/2019 01/04/2020 Active Medrol (Aníbal) 4 mg tablets in a dose pack RxNorm: 824749 6 Tablet(s) Oral QD --then as directed 11/30/2019 12/05/2019 Inactive MS Contin 200 mg tablet,extended release RxNorm: 154154 1 Tablet(s) Oral two times a day 11/29/2019 12/04/2019 Inactive cyclobenzaprine 10 mg tablet RxNorm: 099189 TAKE ONE TA BLET BY MOUTH THREE TIMES A DAY NEEDED 11/21/2019 No Stop Date Active MS Contin 200 mg tablet,extended release RxNorm: 083743 1 Tablet(s) Oral two times a day replaces 100mg dose 11/03/2019 11/02/2019 Inactive MS Contin 200 mg tablet,extended release RxNorm: 589181 1 Tablet(s) Oral two times a day replaces 100mg dose 11/03/2019 11/29/2019 Inactive ferrous sulfate 325 mg (65 mg iron) tablet RxNorm: 249731 1 Tab let(s) Oral QD 10/30/2019 No Stop Date Active MS Contin 100 mg tablet,extended release RxNorm: 711559 1 Table t(s) Oral QD 10/30/2019 10/29/2019 Inactive MS Contin 100 mg tablet,extended release RxNorm: 758924 1 Table t(s) Oral QD 10/30/2019 11/02/2019 Inactive Relistor 150 mg tablet RxNorm: 9451108 TAKE THREE TABLETS BY BENOIT TH DAILY 10/25/2019 No Stop Date Active pantoprazole 40 mg tablet,delayed release RxNorm: 238585 1 Tabl et(s) Oral QD 10/25/2019 No Stop Date Active metformin 500 mg tablet RxNorm: 772362 1 Tablet(s) Oral QD 10/25/20 19 No Stop Date Active Minipress 2 mg capsule RxNorm: 261774 1 Capsule(s) Oral QAM and 3 at bedtime 10/25/2019 No Stop Date Active Lancets, Super Thin RxNorm: 1 Unit Dose Miscellaneous QD 9 11/27/2020 Active Cymbalta 60 mg capsule,delayed release RxNorm: 154572 1 Capsule (s) Oral QAM 10/25/2019 No Stop Date Active Cymbalta 30 mg capsule,delayed release RxNorm: 206905 1 Capsule (s) Oral QAM 10/25/2019 No Stop Date Active oxycodone 15 mg tablet RxNorm: 1281966 1 Tablet(s) Oral four times a day as needed for pain 10/25/2019 11/28/2019 Inactive levothyroxine 25 mcg tablet RxNorm: 876851 1 Tablet(s) Oral QAM 02/201912/19/2019 Inactive levothyroxine 25 mcg tablet RxNorm: 183020 1 Tablet(s) Oral QAM 02/201910/24/2019 Inactive MS Contin 100 mg tablet,extended release RxNorm: 793763 1 Tablet(s) Oral two times a day replaces fentanyl 10/25/2019 10/25/2019 Inactive Premarin 0.45 mg tablet RxNorm: 734471 TAKE ONE TABLET BY MOUTH DAILY 10/24/2019 No Stop Date Active Duragesic 100 mcg/hr transdermal patch RxNorm: 895259 2 Application TD Q48H for pain 10/18/2019 10/24/2019 Inactive gabapentin 300 mg capsule RxNorm: 398430 TAKE ONE CAPSULE BY MO UTH TWICE A DAY 10/16/2019 No Stop Date Active cyclobenzaprine 10 mg tablet RxNorm: 857488 TAKE ONE TA BLET BY MOUTH THREE TIMES A DAY NEEDED 09/27/2019 11/20/2019 Inactive ProAir HFA 90 mcg/actuation aerosol inhaler RxNorm: 913752 INHALE ONE PUFF BY MOUTH EVERY 4 HOURS FOR WHEEZING OR FOR SHORTNESS OF BREATH 09/25/2019 No Stop Date Active Relistor 150 mg tablet RxNorm: 7906114 TAKE THREE TABLETS BY BENOIT TH DAILY 09/25/2019 10/24/2019 Inactive furosemide 40 mg tablet RxNorm: 130347 1 Tablet(s) Oral QAM as needed 09/25/2019 09/25/2019 Inactive oxycodone 15 mg tablet RxNorm: 7292526 1 Tablet(s) PO QID as nee ded for pain 09/21/2019 10/24/2019 Inactive Duragesic 100 mcg/hr transdermal patch RxNorm: 859074 2 Application TD Q48H for pain 09/19/2019 10/17/2019 Inactive Daliresp 500 mcg tablet RxNorm: 4603430 1 Tablet(s) Oral QD 019 03/08/2020 Active potassium chloride ER 20 mEq tablet,extended release RxNorm: 853904 TAKE ONE TABLET BY MOUTH DAILY 07/25/2019 01/20/2020 Active Relistor 150 mg tablet RxNorm: 5452342 TAKE THREE TABLETS BY BENOIT TH DAILY 07/25/2019 07/30/2019 Inactive cyclobenzaprine 10 mg tablet RxNorm: 822713 TAKE ONE TA BLET BY MOUTH THREE TIMES A DAY NEEDED 07/25/2019 09/22/2019 Inactive fluoxetine 40 mg capsule RxNorm: 693433 TAKE ONE CAPSULE BY BENOIT TH EVERY MORNING 07/11/2019 10/24/2019 Inactive Medrol (Aníbal) 4 mg tablets in a dose pack RxNorm: 588891 6 Tablet(s) PO QD --then as directed 07/10/2019 07/15/2019 Inactive omeprazole 40 mg capsule,delayed release RxNorm: 363963 1 Capsule(s) PO QD for stomach TAKE ONE CAPSULE BY MOUTH DAILY 07/10/2019 10/24/2019 Inactive Augmentin 875 mg-125 mg tablet RxNorm: 138564 1 Tablet(s) PO BID 07/16/2019 Inactive Trulicity 0.75 mg/0.5 mL subcutaneous pen injector RxNorm: 1 499683 0.75 Milliliter(s) SQ weekly 07/05/2019 10/24/2019 Inactive Compazine 10 mg tablet RxNorm: 850762 TAKE ONE TABLET B Y MOUTH FOUR TIMES A DAY NEEDED FOR NAUSEA 06/20/2019 07/19/2019 Inactive ProAir HFA 90 mcg/actuation aerosol inhaler RxNorm: 361137 INHALE ONE PUFF BY MOUTH EVERY 4 HOURS FOR WHEEZING OR FOR SHORTNESS OF BREATH 06/20/2019 06/23/2019 Inactive Daliresp 500 mcg tablet RxNorm: 4123758 TAKE ONE TABLET BY MOUTH DAILY 06/12/2019 09/10/2019 Inactive mccvcfhq-lfillolyb-jntkkmtbw 3.5 mg/mL-10,000 unit/mL- 1 % ear solution RxNorm: 191859 4 Drop(s) otic (ear) TID to left ear 06/05/2019 10/24/2019 Inac tive furosemide 40 mg tablet RxNorm: 251288 TAKE ONE TABLET BY MOUTH EVERY MORNING 05/26/2019 07/09/2019 Inactive Duragesic 100 mcg/hr transdermal patch RxNorm: 697975 2 Application TD Q48H for pain 05/16/2019 06/14/2019 Inactive oxycodone 15 mg tablet RxNorm: 0403752 1 Tablet(s) PO QID as nee ded for pain 05/10/2019 09/20/2019 Inactive doxycycline hyclate 100 mg capsule RxNorm: 8589267 1 Capsule(s) PO BID 05/03/2019 05/12/2019 Inactive prednisone 20 mg tablet RxNorm: 833652 1 Tablet(s) PO T ID for 3 days then 1 po BID for 3 days then one daily for 3 days 05/03/2019 07/11/2019 Inactiv e Ozempic 0.25 mg or 0.5 mg (2 mg/1.5 mL) subcutaneous p en injector RxNorm: 1618119 0.5 Milligram(s) SQ QW 05/03/2019 07/09/2019 Inactive fluconazole 100 mg tablet RxNorm: 767448 1 Tablet(s) PO QD 05/03/20 19 05/07/2019 Inactive Premarin 0.45 mg tablet RxNorm: 067440 TAKE ONE TABLET BY MOUTH DAILY 05/03/2019 10/23/2019 Inactive potassium chloride ER 20 mEq tablet,extended release RxNorm: 509117 1 Tablet(s) PO QD 04/27/2019 07/25/2019 Inactive potassium chloride ER 20 mEq tablet,extended release RxNorm: 183741 1 Tablet(s) PO QD 04/25/2019 04/26/2019 Inactive Compazine 10 mg tablet RxNorm: 303222 1 Tablet(s) PO QID as nee ded for nausea 04/25/2019 05/04/2019 Inactive ProAir HFA 90 mcg/actuation aerosol inhaler RxNorm: 716551 INHALE ONE PUFF BY MOUTH EVERY 4 HOURS FOR WHEEZING OR FOR SHORTNESS OF BREATH 04/12/2019 06/10/2019 Inactive Medrol (Aníbal) 4 mg tablets in a dose pack RxNorm: 850616 6 Tablet(s) PO QD --then as directed 04/11/2019 04/16/2019 Inactive Symbicort 160 mcg-4.5 mcg/actuation HFA aerosol inhaler RxNo rm: 8398056 2 Puff(s) INH BID 04/10/2019 10/06/2019 Inactive levothyroxine 50 mcg tablet RxNorm: 691091 1 Tablet(s) PO QD 201810/24/2019 Inactive gabapentin 300 mg capsule RxNorm: 980782 1 Capsule(s) PO BID 201810/02/2019 Inactive Symbicort 160 mcg-4.5 mcg/actuation HFA aerosol inhaler RxNo rm: 0298064 2 Puff(s) INH BID 04/06/2019 04/09/2019 Inactive oxycodone 15 mg tablet RxNorm: 6803436 1 Tablet(s) PO QID as nee ded for pain 04/05/2019 05/09/2019 Inactive levothyroxine 50 mcg tablet RxNorm: 299526 1 Tablet(s) PO QD 201804/09/2019 Inactive furosemide 40 mg tablet RxNorm: 002510 TAKE ONE TABLET BY MOUTH EVERY MORNING 03/21/2019 04/19/2019 Inactive levothyroxine 50 mcg tablet RxNorm: 464157 TAKE ONE TABLET BY M OUTH DAILY 03/21/2019 03/27/2019 Inactive Duragesic 100 mcg/hr transdermal patch RxNorm: 837800 2 Application TD Q48H for pain 03/13/2019 04/11/2019 Inactive oxycodone 15 mg tablet RxNorm: 6539644 1 Tablet(s) PO QID as nee ded for pain 03/06/2019 04/04/2019 Inactive Relistor 150 mg tablet RxNorm: 7871045 3 Tablet(s) PO QD 02/28/2019 0 05/28/2019 Inactive cyclobenzaprine 10 mg tablet RxNorm: 409650 1 Tablet(s) PO TID as needed 02/28/2019 05/28/2019 Inactive phentermine 37.5 mg tablet RxNorm: 007943 1 Tablet(s) PO QAM 201803/15/2019 Inactive Duragesic 100 mcg/hr transdermal patch RxNorm: 149839 2 Application TD Q48H for pain 02/09/2019 03/10/2019 Inactive Daliresp 500 mcg tablet RxNorm: 4977066 TAKE ONE TABLET BY MOUTH DAILY 01/31/2019 05/30/2019 Inactive Premarin 0.45 mg tablet RxNorm: 643167 1 Tablet(s) PO QD 01/31/2019 0 04/30/2019 Inactive fluoxetine 40 mg capsule RxNorm: 424405 Capsule(s) TAKE ONE CAPSULE BY MOUTH EVERY MORNING 01/31/2019 04/30/2019 Inactive levothyroxine 50 mcg tablet RxNorm: 472112 1 Tablet(s) PO QD 201804/10/2019 Inactive follow up in 3 weeks levothyroxine 50 mcg tablet RxNorm: 274394 1 Tablet(s) PO QD 201801/25/2019 Inactive follow up in 3 weeks potassium chloride ER 20 mEq tablet,extended release RxNorm: 892554 2 Tablet(s) PO BID 01/23/2019 02/14/2019 Inactive Synthroid 50 mcg tablet RxNorm: 412581 TAKE ONE TABLET BY MOUTH DAILY 01/16/2019 10/24/2019 Inactive potassium chloride ER 20 mEq tablet,extended release RxNorm: 355049 2 Tablet(s) PO BID 01/04/2019 01/22/2019 Inactive ProAir HFA 90 mcg/actuation aerosol inhaler RxNorm: 975735 INHALE ONE PUFF BY MOUTH EVERY 4 HOURS FOR WHEEZING OR SHORTNESS OF BREATH 01/04/201902/20 Inactive Request already responded to by other me ans (e.g. phone or fax) ProAir HFA 90 mcg/actuation aerosol inhaler RxNorm: 9772983 INHALE ONE PUFF BY MOUTH EVERY 4 HOURS FOR WHEEZING OR SHORTNESS OF BREATH 01/02/201912/23 Inactive gabapentin 300 mg capsule RxNorm: 588084 TAKE ONE CAPSULE BY MO UTH TWICE A DAY 12/30/2018 04/06/2019 Inactive furosemide 40 mg tablet RxNorm: 631261 1 Tablet(s) PO QAM 12/26/2018 02/23/2019 Inactive Compazine 10 mg tablet RxNorm: 288580 1 Tablet(s) PO QID as nee ded for nausea 12/07/2018 12/16/2018 Inactive metolazone 2.5 mg tablet RxNorm: 733463 TAKE ONE TABLET BY MOUT H EVERY MORNING 12/05/2018 01/03/2019 Inactive metformin ER 500 mg tablet,extended release 24 hr RxNorm: 86 0975 TAKE ONE TABLET BY MOUTH DAILY 12/05/2018 04/10/2019 Inactive Synthroid 50 mcg tablet RxNorm: 303998 1 Tablet(s) PO QD 11/25/2018 0 01/03/2019 Inactive DC any other synthroid strengths. Should be 50mcg only cyclobenzaprine 10 mg tablet RxNorm: 298520 TAKE ONE TA BLET BY MOUTH THREE TIMES A DAY NEEDED 11/09/2018 02/06/2019 Inactive metolazone 2.5 mg tablet RxNorm: 884640 1 Tablet(s) PO QAM repl aces 5mg dose 11/02/2018 12/01/2018 Inactive potassium chloride ER 20 mEq tablet,extended release RxNorm: 633139 2 Tablet(s) PO QD 2018 01/02/2019 Inactive Compazine 10 mg tablet RxNorm: 842774 1 Tablet(s) PO QID as nee ded for nausea 10/18/2018 12/07/2018 Inactive furosemide 40 mg tablet RxNorm: 368661 1 Tablet(s) PO QAM 10/12/2018 12/10/2018 Inactive ondansetron 8 mg disintegrating tablet RxNorm: 606758 1 Tablet(s) PO Q6H as needed 10/11/2018 10/17/2018 Inactive scopolamine 1 mg over 3 days transdermal patch RxNorm: 46746 2 1 Application TD behind ear. Take off after three days 10/11/2018 01/02/2019 Inactive furosemide 40 mg tablet RxNorm: 153603 1 Tablet(s) PO QAM 10/10/2018 12/26/2018 Inactive metolazone 5 mg tablet RxNorm: 392528 1 Tablet(s) PO QAM 10/06/2018 1 01/03/2018 Inactive metolazone 5 mg tablet RxNorm: 859963 1 Tablet(s) PO QAM 10/06/2018 1 12/05/2017 Inactive Xtampza ER 36 mg capsule sprinkle RxNorm: 7133910 1 Capsule(s) P O BID 10/05/2018 01/02/2019 Inactive Xtampza ER 36 mg capsule sprinkle RxNorm: 9909967 1 Capsule(s) P O BID 10/05/2018 02/12/2019 Inactive omeprazole 40 mg capsule,delayed release RxNorm: 285310 TAKE ONE CAPSULE BY MOUTH DAILY 10/03/2018 12/31/2018 Inactive Duragesic 100 mcg/hr transdermal patch RxNorm: 464579 2 Application TD Q48H for pain 09/30/2018 10/29/2018 Inactive Synthroid 50 mcg tablet RxNorm: 788602 1 Tablet(s) PO QD 09/29/2018 0 11/25/2018 Inactive DC any other synthroid strengths. Should be 50mcg only Synthroid 50 mcg tablet RxNorm: 096353 1 Tablet(s) PO QD 09/29/2018 1 11/28/2017 Inactive furosemide 40 mg tablet RxNorm: 915868 2 Tablet(s) PO Q AM for 1 week then every other day for 2 weeks 09/27/2018 10/12/2018 Inactive fluoxetine 40 mg capsule RxNorm: 033851 2 Capsule(s) PO QD 09/27/20 18 10/17/2018 Inactive potassium chloride ER 20 mEq tablet,extended release RxNorm: 006144 2 Tablet(s) PO QD for 1 week then every other day for 2 weeks 09/27/2018 2018 Inactive ProAir HFA 90 mcg/actuation aerosol inhaler RxNorm: 7897974 INHALE ONE PUFF BY MOUTH EVERY 4 HOURS FOR WHEEZING OR SHORTNESS OF BREATH 09/26/201811/23 Inactive Synthroid 75 mcg tablet RxNorm: 292358 1 Tablet(s) PO QD 09/09/2018 1 Inactive Synthroid 75 mcg tablet RxNorm: 570026 1 Tablet(s) PO QD 09/09/2018 1 11/28/2017 Inactive furosemide 40 mg tablet RxNorm: 292943 1 Tablet(s) PO QD 09/06/2018 1 Inactive potassium chloride ER 20 mEq tablet,extended release RxNorm: 278987 1 Tablet(s) PO QD 09/06/2018 09/19/2018 Inactive Duragesic 100 mcg/hr transdermal patch RxNorm: 062233 2 Application TD Q48H for pain 08/30/2018 09/28/2018 Inactive gabapentin 300 mg capsule RxNorm: 398276 TAKE ONE CAPSULE BY MO UT TWICE A DAY 08/23/2018 12/20/2018 Inactive Daliresp 500 mcg tablet RxNorm: 0702074 TAKE ONE TABLET BY MOUTH DAILY 08/23/2018 01/19/2019 Inactive Pulmicort 1 mg/2 mL suspension for nebulization RxNorm: 6168 19 USE ONE VIAL VIA NEBULIZER BY MOUTH TWICE A DAY 08/23/2018 07/11/2019 Inactive Synthroid 88 mcg tablet RxNorm: 453551 1 Tablet(s) PO QD 08/19/2018 Inactive Medrol (Aníbal) 4 mg tablets in a dose pack RxNorm: 868167 Tablet(s) PO take as directed 08/16/2018 09/05/2018 Inactive Relistor 150 mg tablet RxNorm: 6675806 3 Tablet(s) PO QD 08/16/2018 Inactive Zithromax Z-Aníbal 250 mg tablet RxNorm: 168809 Tablet(s) PO take as directed 08/16/2018 09/05/2018 Inactive cyclobenzaprine 10 mg tablet RxNorm: 531231 1 Tablet(s) PO TID as needed 08/16/2018 11/08/2018 Inactive Synthroid 88 mcg tablet RxNorm: 534238 1 Tablet(s) PO Q D NEEDS UPDATED LABS BEFORE FURTHER REFILLS 08/08/2018 08/19/2018 Inactive Premarin 0.45 mg tablet RxNorm: 633470 1 Tablet(s) PO QD 08/03/2018 0 01/31/2019 Inactive fluoxetine 20 mg capsule RxNorm: 232293 TAKE ONE CAPSULE BY BENOIT TH DAILY 08/03/2018 09/26/2018 Inactive Xtampza ER 36 mg capsule sprinkle RxNorm: 6475599 1 Capsule(s) P O BID 08/03/2018 09/01/2018 Inactive metformin ER 500 mg tablet,extended release 24 hr RxNorm: 86 0975 1 Tablet(s) PO QD 08/03/2018 10/31/2018 Inactive Symbicort 160 mcg-4.5 mcg/actuation HFA aerosol inhaler RxNo rm: 9225386 2 Puff(s) INH BID 08/03/2018 01/29/2019 Inactive Duragesic 100 mcg/hr transdermal patch RxNorm: 768346 2 Application TD Q48H for pain 07/29/2018 08/27/2018 Inactive ProAir HFA 90 mcg/actuation aerosol inhaler RxNorm: 487895 INHALE TWO PUFFS BY MOUTH EVERY 4 HOURS FOR WHEEZING OR SHORTNESS OF BREATH 07/27/201802/2018 Inactive Relistor 150 mg tablet RxNorm: 4423628 3 Tablet(s) PO QD 07/20/2018 0 08/15/2018 Inactive metformin ER 500 mg tablet,extended release 24 hr RxNorm: 86 0975 TAKE ONE TABLET BY MOUTH DAILY 07/08/2018 08/02/2018 Inactive fluoxetine 40 mg capsule RxNorm: 541294 TAKE ONE CAPSULE BY BENOIT TH EVERY MORNING 07/08/2018 10/05/2018 Inactive Xtampza ER 18 mg capsule sprinkle RxNorm: 9708087 1 Capsule(s) P O BID 07/08/2018 08/02/2018 Inactive Relistor 150 mg tablet RxNorm: 3160268 3 Tablet(s) PO QD 07/08/2018 0 07/12/2018 Inactive Synthroid 88 mcg tablet RxNorm: 862350 1 Tablet(s) PO Q D NEEDS UPDATED LABS BEFORE FURTHER REFILLS 06/23/2018 07/07/2018 Inactive fluoxetine 40 mg capsule RxNorm: 288665 TAKE ONE CAPSULE BY BENOIT TH EVERY MORNING 06/15/2018 09/26/2018 Inactive orphenadrine citrate ER 100 mg tablet,extended release RxNor m: 037446 TAKE ONE TABLET BY MOUTH TWICE A DAY FOR MUSCLE SPASM 06/15/2018 08/15/2018 [place] [facility] Duragesic 100 mcg/hr transdermal patch RxNorm: 518559 2 Application TD Q48H for pain 05/30/2018 06/28/2018 Inactive ProAir HFA 90 mcg/actuation aerosol inhaler RxNorm: 269759 INHALE TWO PUFFS BY MOUTH EVERY 4 HOURS FOR WHEEZING OR SHORTNESS OF BREATH 05/19/201803/2018 Inactive Chantix Continuing Month Box 1 mg tablet RxNorm: 763698 TAKE ONE TABLET BY MOUTH TWICE A DAY 05/19/2018 08/15/2018 Inactive oxycodone 10 mg tablet RxNorm: 4279577 1-2 Tablet(s) PO QID as n eeded for pain 05/19/2018 07/07/2018 Inactive gabapentin 300 mg capsule RxNorm: 324988 TAKE ONE CAPSULE BY [facility] TWICE A DAY 05/18/2018 07/16/2018 Inactive ProAir HFA 90 mcg/actuation aerosol inhaler RxNorm: 326593 INHALE TWO PUFFS BY MOUTH EVERY 4 HOURS FOR WHEEZING OR SHORTNESS OF BREATH 05/04/201804/23 Inactive Augmentin 500 mg-125 mg tablet RxNorm: 483231 1 Tablet(s) PO BID 05/03/2018 Inactive oxycodone 10 mg tablet RxNorm: 5342841 1-2 Tablet(s) PO QID as n eeded for pain 04/21/2018 05/18/2018 Inactive Synthroid 88 mcg tablet RxNorm: 926875 1 Tablet(s) PO QD 04/15/2018 0 08/08/2018 Inactive Symbicort 160 mcg-4.5 mcg/actuation HFA aerosol inhaler RxNo rm: 4390498 2 Puff(s) INH BID 04/15/2018 04/10/2019 Inactive Premarin 0.45 mg tablet RxNorm: 860826 1 Tablet(s) PO QD 04/15/2018 0 08/03/2018 Inactive ProAir HFA 90 mcg/actuation aerosol inhaler RxNorm: 090264 2 Puff(s) INH Q4H prn for wheezing or shortness of breath 04/15/2018 05/03/2018 Inactive metformin ER 500 mg tablet,extended release 24 hr RxNorm: 86 0975 1 Tablet(s) PO QD 04/11/2018 07/07/2018 Inactive omeprazole 40 mg capsule,delayed release RxNorm: 277875 TAKE ONE CAPSULE BY MOUTH DAILY 04/10/2018 06/08/2018 Inactive Synthroid 88 mcg tablet RxNorm: 606085 1 Tablet(s) PO QD 04/04/2018 0 04/14/2018 Inactive Synthroid 88 mcg tablet RxNorm: 819824 1 Tablet(s) PO QD 04/04/2018 0 04/03/2018 Inactive orphenadrine citrate ER 100 mg tablet,extended release RxNor m: 562425 1 Tablet(s) PO BID for muscle spasm 04/04/2018 05/03/2018 Inactive metformin ER 500 mg tablet,extended release 24 hr RxNorm: 86 0975 1 Tablet(s) PO QD NEEDS UPDATED LABS 03/31/2018 04/11/2018 Inactive doxycycline hyclate 100 mg capsule RxNorm: 0396174 1 Capsule(s) PO BID 03/31/2018 04/09/2018 Inactive prednisone 20 mg tablet RxNorm: 928172 3 Tablet(s) PO T ID for 3 days then 1 po BID for 3 days then one daily for 3 days 03/31/2018 07/06/2018 Inactiv e Chantix Continuing Month Box 1 mg tablet RxNorm: 761907 TAKE ONE TABLET BY MOUTH TWICE A DAY 03/25/2018 03/30/2018 Inactive oxycodone 10 mg tablet RxNorm: 5686818 1-2 Tablet(s) PO QID as n eeded for pain 03/21/2018 04/20/2018 Inactive Daliresp 500 mcg tablet RxNorm: 4609137 1 Tablet(s) PO QD 03/15/2018 08/22/2018 Inactive metformin ER 500 mg tablet,extended release 24 hr RxNorm: 86 0975 1 Tablet(s) PO QD NEEDS UPDATED LABS 03/14/2018 03/31/2018 Inactive nystatin 100,000 unit/mL oral suspension RxNorm: 946379 5 [place] liter(s) PO QID 03/02/2018 03/15/2018 Inactive nystatin 100,000 unit/mL oral suspension RxNorm: 342435 5 [place]io liter(s) PO QID 03/02/2018 03/01/2018 Inactive oxycodone 10 mg tablet RxNorm: 5084215 1-2 Tablet(s) PO QID as n eeded for pain 02/16/2018 03/20/2018 Inactive fluoxetine 20 mg capsule RxNorm: 926504 1 Capsule(s) PO QD 02/15/20 18 08/02/2018 Inactive metformin ER 500 mg tablet,extended release 24 hr RxNorm: 86 0975 1 Tablet(s) PO QD Needs updated labs 02/14/2018 03/14/2018 Inactive cefdinir 300 mg capsule RxNorm: 859347 1 Capsule(s) PO BID 01/27/20 18 02/04/2018 Inactive orphenadrine citrate ER 100 mg tablet,extended release RxNor m: 494030 1 Tablet(s) PO BID for muscle spasm 01/26/2018 04/04/2018 Inactive gabapentin 300 mg capsule RxNorm: 580883 1 Capsule(s) PO BID 201704/17/2018 Inactive oxycodone 10 mg tablet RxNorm: 3886095 1-2 Tablet(s) PO QID as n eeded for pain 01/17/2018 02/15/2018 Inactive Duragesic 100 mcg/hr transdermal patch RxNorm: 809582 2 Application TD Q48H for pain 01/17/2018 02/15/2018 Inactive gabapentin 300 mg capsule RxNorm: 076043 TAKE ONE CAPSULE BY MO UTH TWICE A DAY 12/20/2017 01/18/2018 Inactive fluoxetine 40 mg capsule RxNorm: 576373 TAKE ONE CAPSULE BY BENOIT TH EVERY MORNING 12/15/2017 03/14/2018 Inactive OneTouch Ultra Test strips RxNorm: TEST DAILY 11/04/2017 02/01/2018 Inactive gabapentin 300 mg capsule RxNorm: 661077 1 Capsule(s) P O TID replaces BID dosing 10/26/2017 02/22/2018 Inactive oxycodone 10 mg tablet RxNorm: 5048546 1-2 Tablet(s) PO QID as n eeded for pain 10/18/2017 01/16/2018 Inactive Duragesic 100 mcg/hr transdermal patch RxNorm: 000445 2 Application TD Q48H for pain 10/18/2017 11/16/2017 Inactive gabapentin 300 mg capsule RxNorm: 815987 1 Capsule(s) PO BID 201610/25/2017 Inactive Abilify 5 mg tablet RxNorm: 500391 1 Tablet(s) PO QAM 09/23/201702/2017 Inactive gabapentin 300 mg capsule RxNorm: 853669 1 Capsule(s) PO BID 201610/17/2017 Inactive oxycodone 10 mg tablet RxNorm: 8406939 1-2 Tablet(s) PO QID as n eeded for pain 09/15/2017 10/17/2017 Inactive Duragesic 100 mcg/hr transdermal patch RxNorm: 987515 2 Application TD Q48H for pain 09/15/2017 10/14/2017 Inactive Duragesic 100 mcg/hr transdermal patch RxNorm: 309051 2 Application TD Q48H for pain 09/15/2017 10/24/2019 Inactive oxycodone 10 mg tablet RxNorm: 1791785 1-2 Tablet(s) PO QID as n eeded for pain 09/15/2017 08/15/2018 Inactive Daliresp 500 mcg tablet RxNorm: 8254519 1 Tablet(s) PO QD 09/06/2017 03/15/2018 Inactive Ventolin HFA 90 mcg/actuation aerosol inhaler RxNorm: 344223 2 Puff(s) INH Q4H as needed 09/02/2017 05/19/2018 Inactive oxycodone 10 mg tablet RxNorm: 1961416 1-2 Tablet(s) PO QID as n eeded for pain 08/17/2017 09/14/2017 Inactive Duragesic 100 mcg/hr transdermal patch RxNorm: 835909 2 Application TD Q48H for pain 08/17/2017 09/14/2017 Inactive fluoxetine 40 mg capsule RxNorm: 183299 Capsule(s) TAKE ONE CAPSULE BY MOUTH EVERY MORNING 08/17/2017 12/14/2017 Inactive Pulmicort 1 mg/2 mL suspension for nebulization RxNorm: 6168 19 1 Unit Dose INH BID Dx: COPD (J44.9) 08/16/2017 08/22/2018 Inactive gabapentin 300 mg capsule RxNorm: 461964 1 Capsule(s) PO QHS 201610/18/2017 Inactive fluoxetine 20 mg capsule RxNorm: 278042 1 Capsule(s) PO QD 08/12/20 17 02/14/2018 Inactive Abilify 2 mg tablet RxNorm: 324781 1 Tablet(s) PO QD TA KE ONE TABLET BY MOUTH DAILY 08/12/2017 10/25/2017 Inactive metformin ER 500 mg tablet,extended release 24 hr RxNorm: 86 0975 1 Tablet(s) PO QD 08/10/2017 02/14/2018 Inactive Synthroid 112 mcg tablet RxNorm: 010987 1 Tablet(s) PO QD 08/10/2017 04/15/2018 Inactive oxycodone 10 mg tablet RxNorm: 7092023 1-2 Tablet(s) PO QID as n eeded for pain 07/19/2017 08/16/2017 Inactive Duragesic 100 mcg/hr transdermal patch RxNorm: 564268 2 Application TD Q48H for pain 07/19/2017 08/16/2017 Inactive Ventolin HFA 90 mcg/actuation aerosol inhaler RxNorm: 359903 2 Puff(s) INH Q4H as needed 07/12/2017 09/02/2017 Inactive Abilify 2 mg tablet RxNorm: 031749 1 Tablet(s) PO QD TA KE ONE TABLET BY MOUTH DAILY 07/06/2017 08/11/2017 Inactive gabapentin 800 mg tablet RxNorm: 924480 1 Tablet(s) PO TID 06/22/20 17 07/05/2017 Inactive Chantix Starting Month Box 0.5 mg (11)-1 mg (42) table ts in dose pack RxNorm: 886498 TAKE BY MOUTH INSTRUCTED - PER PACKAGE INSTRUCTIONS 06/0707/04/2017 Inactive Ventolin HFA 90 mcg/actuation aerosol inhaler RxNorm: 690971 2 Puff(s) INH Q4H as needed 05/26/2017 07/12/2017 Inactive Duragesic 100 mcg/hr transdermal patch RxNorm: 124574 2 Application TD Q48H for pain 05/19/2017 06/17/2017 Inactive oxycodone 10 mg tablet RxNorm: 1848927 1-2 Tablet(s) PO QID as n eeded for pain 05/19/2017 07/18/2017 Inactive Abilify 2 mg tablet RxNorm: 922195 TAKE ONE TABLET BY MOUTH DAILY 0 05/10/2017 07/05/2017 Inactive Synthroid 112 mcg tablet RxNorm: 264697 1 Tablet(s) PO QD 05/06/2017 08/10/2017 Inactive metformin ER 500 mg tablet,extended release 24 hr RxNorm: 86 0975 1 Tablet(s) PO QD 05/06/2017 08/10/2017 Inactive Topamax 100 mg tablet RxNorm: 100202 1 Tablet(s) PO QHS 05/06/2017 Inactive Premarin 0.45 mg tablet RxNorm: 809129 1 Tablet(s) PO QD 05/06/2017 0 04/15/2018 Inactive orphenadrine citrate ER 100 mg tablet,extended release RxNor m: 621441 1 Tablet(s) PO TID for muscle spasm--replaces methocarbamol 04/29/2017 Inactive oxycodone 10 mg tablet RxNorm: 9113050 1-2 Tablet(s) PO QID as n eeded for pain 04/21/2017 05/18/2017 Inactive Duragesic 100 mcg/hr transdermal patch RxNorm: 372411 2 Application TD Q48H for pain 04/21/2017 05/18/2017 Inactive fluoxetine 40 mg capsule RxNorm: 468648 Capsule(s) TAKE ONE CAPSULE BY MOUTH EVERY MORNING 04/20/2017 08/17/2017 Inactive Ventolin HFA 90 mcg/actuation aerosol inhaler RxNorm: 006539 2 Puff(s) INH Q4H as needed 04/05/2017 05/26/2017 Inactive Symbicort 160 mcg-4.5 mcg/actuation HFA aerosol inhaler RxNo rm: 4986959 2 Puff(s) INH BID 03/30/2017 04/15/2018 Inactive Spiriva with HandiHaler 18 mcg and inhalation capsules RxNor m: 909873 1 Capsule(s) INH QD USING HANDIHALER 03/30/2017 02/12/2019 Inactive Duragesic 100 mcg/hr transdermal patch RxNorm: 376220 2 Application TD Q48H for pain 03/18/2017 04/16/2017 Inactive oxycodone 10 mg tablet RxNorm: 2867947 1-2 Tablet(s) PO QID as n eeded for pain 03/18/2017 04/20/2017 Inactive metformin ER 500 mg tablet,extended release 24 hr RxNorm: 86 0975 Tablet(s) TAKE ONE TABLET BY MOUTH DAILY 03/01/2017 05/06/2017 Inactive Premarin 0.45 mg tablet RxNorm: 603024 Tablet(s) TAKE ONE TABLE T BY MOUTH DAILY 03/01/2017 05/06/2017 Inactive Synthroid 112 mcg tablet RxNorm: 003610 Tablet(s) TAKE ONE TABLET BY MOUTH DAILY 03/01/2017 05/06/2017 Inactive Daliresp 500 mcg tablet RxNorm: 9895224 1 Tablet(s) PO QD 03/01/2017 09/06/2017 Inactive 16.2 mg-0.1037 mg-0.0194 mg tablet RxNorm: 1921776 Tablet(s) PO PRN for gas and cramping 02/23/2017 04/28/2017 Inactive TAKE TWO TABLET S BY MOUTH THREE TIMES A DAY NEEDED FOR GAS AND CRAMPING gabapentin 800 mg tablet RxNorm: 015554 1 Tablet(s) PO TID repl aces 600mg 02/23/2017 04/28/2017 Inactive Duragesic 100 mcg/hr transdermal patch RxNorm: 913344 2 Application TD Q48H for pain 02/17/2017 03/17/2017 Inactive fluoxetine 20 mg capsule RxNorm: 678955 1 Capsule(s) PO QD 02/18/20 17 08/12/2017 Inactive oxycodone 20 mg tablet RxNorm: 3208418 1 Tablet(s) PO QID as nee ded for pain 02/17/2017 03/17/2017 Inactive Ventolin HFA 90 mcg/actuation aerosol inhaler RxNorm: 236892 INHALE TWO PUFFS BY MOUTH EVERY 4 HOURS NEEDED 02/15/2017 04/05/2017 Inactive Silvadene 1 % topical cream RxNorm: 682538 1 Application TOP BI D to burn area 02/01/2017 09/22/2017 Inactive Topamax 100 mg tablet RxNorm: 878016 TAKE ONE TABLET BY MOUTH EVERY NIGHT AT BEDTIME 01/29/2017 05/06/2017 Inactive Chantix Starting Month Box 0.5 mg (11)-1 mg (42) table ts in dose pack RxNorm: 609194 Tablet(s) PO as directed 01/29/2017 06/01/2017 Inactive Abilify 2 mg tablet RxNorm: 508023 TAKE ONE TABLET BY MOUTH DAILY 0 01/26/2017 04/25/2017 Inactive Chantix Starting Month Box 0.5 mg (11)-1 mg (42) table ts in dose pack RxNorm: 335131 Tablet(s) PO as directed 01/20/2017 01/28/2017 Inactive gabapentin 600 mg tablet RxNorm: 347306 1 Tablet(s) PO TID 01/21/20 17 02/22/2017 Inactive Chantix Continuing Month Box 1 mg tablet RxNorm: 104478 1 Table t(s) PO BID 12/31/2016 06/01/2017 Inactive Spiriva with HandiHaler 18 mcg and inhalation capsules RxNor m: 571125 INHALE THE ENTIRE CONTENTS OF 1 CAPSULE ONCE A DAY USING HANDIHALER 12/31/201607/2017 Inactive Synthroid 112 mcg tablet RxNorm: 186035 TAKE ONE TABLET BY MOUT H DAILY 12/30/2016 03/01/2017 Inactive metformin ER 500 mg tablet,extended release 24 hr RxNorm: 86 0975 TAKE ONE TABLET BY MOUTH DAILY 12/30/2016 03/01/2017 Inactive Premarin 0.45 mg tablet RxNorm: 556083 TAKE ONE TABLET BY MOUTH DAILY 12/30/2016 03/01/2017 Inactive omeprazole 40 mg capsule,delayed release RxNorm: 380126 TAKE ONE CAPSULE BY MOUTH DAILY 12/30/2016 01/25/2018 Inactive Ventolin HFA 90 mcg/actuation aerosol inhaler RxNorm: 812119 INHALE TWO PUFFS BY MOUTH EVERY 4 HOURS NEEDED 12/28/2016 02/13/2017 Inactive fluoxetine 40 mg capsule RxNorm: 367045 TAKE ONE CAPSULE BY BENOIT TH EVERY MORNING 12/15/2016 04/20/2017 Inactive Chantix Continuing Month Box 1 mg tablet RxNorm: 230137 TAKE ONE TABLET BY MOUTH TWICE A DAY 12/04/2016 12/31/2016 Inactive doxycycline hyclate 100 mg capsule RxNorm: 6361137 1 Capsule(s) PO BID 12/01/2016 12/07/2016 Inactive Levaquin 750 mg tablet RxNorm: 245762 1 Tablet(s) PO QD 12/01/2016 Inactive Abilify 2 mg tablet RxNorm: 723028 TAKE ONE TABLET BY MOUTH DAILY 0 11/25/2016 11/30/2016 Inactive Ventolin HFA 90 mcg/actuation aerosol inhaler RxNorm: 253192 INHALE TWO PUFFS BY MOUTH EVERY 4 HOURS NEEDED 11/02/2016 12/19/2016 Inactive Chantix Continuing Month Box 1 mg tablet RxNorm: 900018 Tablet(s) PO as directed 10/30/2016 12/03/2016 Inactive Symbicort 160 mcg-4.5 mcg/actuation HFA aerosol inhaler RxNo rm: 9895816 INHALE TWO PUFFS TWO TIMES A DAY 10/30/2016 03/30/2017 Inactive Abilify 2 mg tablet RxNorm: 393089 1 Tablet(s) PO QD 10/27/201611/24 Inactive amoxicillin 500 mg capsule RxNorm: 708821 1 Capsule(s) PO TID 10/1410/23/2016 Inactive amoxicillin 500 mg capsule RxNorm: 228632 1 Capsule(s) PO TID 10/1410/13/2016 Inactive Synthroid 112 mcg tablet RxNorm: 335152 TAKE ONE TABLET BY MOUT H DAILY 09/28/2016 12/29/2016 Inactive Topamax 100 mg tablet RxNorm: 890637 TAKE ONE TABLET BY MOUTH EVERY NIGHT AT BEDTIME 09/28/2016 01/28/2017 Inactive Premarin 0.45 mg tablet RxNorm: 524325 TAKE ONE TABLET BY MOUTH DAILY 09/28/2016 12/29/2016 Inactive metformin ER 500 mg tablet,extended release 24 hr RxNorm: 86 0975 TAKE ONE TABLET BY MOUTH DAILY 09/28/2016 12/29/2016 Inactive Ventolin HFA 90 mcg/actuation aerosol inhaler RxNorm: 325110 INHALE TWO PUFFS BY MOUTH EVERY 4 HOURS NEEDED 09/22/2016 10/23/2016 Inactive Pulmicort 1 mg/2 mL suspension for nebulization RxNorm: 6168 19 1 Unit Dose INH BID Dx: COPD (J44.9) 09/10/2016 08/16/2017 Inactive Pulmicort 1 mg/2 mL suspension for nebulization RxNorm: 6168 19 1 Unit Dose INH BID 09/10/2016 09/09/2016 Inactive Brovana 15 mcg/2 mL solution for nebulization RxNorm: 223006 1 Unit Dose INH BID Dx: COPD (J44.9) 09/10/2016 01/25/2018 Inactive Brovana 15 mcg/2 mL solution for nebulization RxNorm: 319215 1 Unit Dose INH BID 09/10/2016 09/09/2016 Inactive ipratropium-albuterol 0.5 mg-3 mg(2.5 mg base)/3 mL ne bulization soln RxNorm: 0015596 1 Unit Dose INH Q4H as needed Dx: COPD (J44.9) 09/10/2016 0 02/12/2019 Inactive orphenadrine citrate ER 100 mg tablet,extended release RxNor m: 849627 1 Tablet(s) PO BID for muscle spasm--replaces methocarbamol 09/09/2016 Inactive Chantix Continuing Month Box 1 mg tablet RxNorm: 335669 Tablet(s) PO as directed 09/09/2016 10/30/2016 Inactive orphenadrine citrate ER 100 mg tablet,extended release RxNor m: 084179 1 Tablet(s) PO BID for muscle spasm 09/09/2016 09/08/2016 Inactive Spiriva with HandiHaler 18 mcg and inhalation capsules RxNor m: 688605 INHALE THE ENTIRE CONTENTS OF 1 CAPSULE ONCE A DAY USING HANDIHALER 09/01/201605/2017 Inactive Daliresp 500 mcg tablet RxNorm: 0657986 1 Tablet(s) PO QD 08/27/2016 03/01/2017 Inactive prednisone 20 mg tablet RxNorm: 409466 3 Tablet(s) PO T ID for 3 days then 1 po BID for 3 days then one daily for 3 days 08/26/2016 04/28/2017 Inactiv e Wellbutrin XL 300 mg 24 hr tablet, extended release RxNorm: 846557 TAKE ONE TABLET BY MOUTH EVERY MORNING 07/29/2016 10/26/2016 Inactive gabapentin 600 mg tablet RxNorm: 348572 1 Tablet(s) PO BID 06/26/20 16 12/22/2016 Inactive fluoxetine 40 mg capsule RxNorm: 593713 TAKE ONE CAPSULE BY BENOIT TH EVERY MORNING 06/24/2016 11/20/2016 Inactive Duragesic 100 mcg/hr transdermal patch RxNorm: 554477 2 Application TD Q48H for pain 06/05/2016 07/04/2016 Inactive oxycodone 10 mg tablet RxNorm: 7693547 1-2 Tablet(s) PO QID as n eeded for pain 06/05/2016 03/17/2017 Inactive Belladonna-Phenobarbital 48 mg tablet,extended release RxNor m: 2 Tablet(s) PO TID 06/05/2016 01/19/2017 Inactive Premarin 0.45 mg tablet RxNorm: 782708 TAKE ONE TABLET BY MOUTH DAILY 05/27/2016 09/23/2016 Inactive Topamax 100 mg tablet RxNorm: 654979 TAKE ONE TABLET BY MOUTH EVERY NIGHT AT BEDTIME 05/27/2016 09/27/2016 Inactive Synthroid 112 mcg tablet RxNorm: 710300 TAKE ONE TABLET BY MOUT H DAILY 05/27/2016 09/23/2016 Inactive metformin ER 500 mg tablet,extended release 24 hr RxNorm: 86 0975 TAKE ONE TABLET BY MOUTH DAILY 05/27/2016 09/23/2016 Inactive Symbicort 160 mcg-4.5 mcg/actuation HFA aerosol inhaler RxNo rm: 3601092 INHALE TWO PUFFS TWO TIMES A DAY 05/27/2016 10/23/2016 Inactive Ventolin HFA 90 mcg/actuation aerosol inhaler RxNorm: 559120 INHALE TWO PUFFS BY MOUTH EVERY 4 HOURS NEEDED 05/21/2016 07/07/2016 Inactive omeprazole 40 mg capsule,delayed release RxNorm: 678467 1 Capsu le(s) PO QD 05/06/2016 08/03/2016 Inactive metformin ER 500 mg tablet,extended release 24 hr RxNorm: 86 0975 TAKE ONE TABLET BY MOUTH DAILY 04/23/2016 05/22/2016 Inactive methocarbamol 750 mg tablet RxNorm: 054535 2 Tablet(s) PO TID as needed for muscle spasm 04/23/2016 09/08/2016 Inactive Synthroid 112 mcg tablet RxNorm: 619352 TAKE ONE TABLET BY MOUT H DAILY 04/23/2016 05/22/2016 Inactive Spiriva with HandiHaler 18 mcg and inhalation capsules RxNor m: 333292 INHALE THE ENTIRE CONTENTS OF 1 CAPSULE ONCE A DAY USING HANDIHALER 04/09/201608/2016 Inactive Diflucan 100 mg tablet RxNorm: 154892 1 Tablet(s) PO QD 04/08/2016 Inactive doxycycline hyclate 100 mg capsule RxNorm: 6343031 1 Capsule(s) PO BID 04/08/2016 04/17/2016 Inactive doxycycline hyclate 100 mg capsule RxNorm: 8912990 1 Capsule(s) PO BID 04/08/2016 04/07/2016 Inactive Diflucan 100 mg tablet RxNorm: 091256 1 Tablet(s) PO QD 04/08/2016 Inactive ondansetron HCl 4 mg tablet RxNorm: 967697 1 Tablet(s) PO Q4H as needed for nausea and vomiting 04/08/2016 09/22/2017 Inactive gabapentin 600 mg tablet RxNorm: 219709 TAKE ONE TABLET BY MOUT H TWICE A DAY 03/24/2016 06/25/2016 Inactive Synthroid 112 mcg tablet RxNorm: 959212 TAKE ONE TABLET BY MOUT H DAILY 02/25/2016 04/22/2016 Inactive Levaquin 500 mg tablet RxNorm: 486732 1 Tablet(s) PO QD 01/23/2016 Inactive prednisone 20 mg tablet RxNorm: 790858 1 Tablet(s) PO T ID for 3 days then 1 po BID for 3 days then one daily for 3 days 01/23/2016 08/25/2016 Inactiv e [employer] Ultra Test strips RxNorm: TEST BLOOD SUGAR ONCE DAILY 250.00 01/09/2016 11/04/2017 Inactive methocarbamol 750 mg tablet RxNorm: 043878 2 Tablet(s) PO TID as needed for muscle spasm 01/09/2016 04/23/2016 Inactive lactulose 10 gram/15 mL oral solution RxNorm: 914089 [address](s) PO QD 01/09/2016 09/22/2017 Inactive TAKE 1 TABLESPOON BY MOUTH ONCE DAILY metformin ER 500 mg tablet,extended release 24 hr RxNorm: 86 0975 1 Tablet(s) PO QD 12/26/2015 04/22/2016 Inactive fluoxetine 20 mg capsule RxNorm: 490385 1 Capsule(s) PO QD 12/23/19 16 06/19/2016 Inactive Premarin 0.45 mg tablet RxNorm: 176120 TAKE ONE TABLET BY MOUTH DAILY 12/23/2015 05/20/2016 Inactive fluoxetine 40 mg capsule RxNorm: 301066 1 Capsule(s) PO QD 12/23/19 16 06/19/2016 Inactive TAKE ONE CAPSULE BY MOUTH EV JANKI MORNING azithromycin 500 mg tablet RxNorm: 422644 1 Tablet(s) PO QD 016 12/19/2015 Inactive Zofran 4 mg tablet RxNorm: 407978 1 Tablet(s) PO Q4H prn nausea /vomiting 12/13/2015 03/30/2018 Inactive azithromycin 500 mg tablet RxNorm: 991823 1 Tablet(s) PO QD 016 12/12/2015 Inactive Duragesic 100 mcg/hr transdermal patch RxNorm: 731844 2 Application TD Q48H for pain 12/09/2015 01/07/2016 Inactive oxycodone 10 mg tablet RxNorm: 6127037 1-2 Tablet(s) PO QID as n eeded for pain 12/09/2015 06/04/2016 Inactive Bactroban 2 % topical cream RxNorm: 060730 Application TOP BID 11/2208/25/2016 Inactive doxycycline hyclate 100 mg capsule RxNorm: 9660428 1 Capsule(s) PO BID 12/03/2015 12/12/2015 Inactive Topamax 100 mg tablet RxNorm: 328115 TAKE ONE TABLET BY MOUTH EVERY NIGHT AT BEDTIME 11/25/2015 05/22/2016 Inactive Symbicort 160 mcg-4.5 mcg/actuation HFA aerosol inhaler RxNo rm: 7709786 INHALE TWO PUFFS TWO TIMES A DAY 11/25/2015 05/22/2016 Inactive Synthroid 112 mcg tablet RxNorm: 930181 Tablet(s) TAKE ONE TABLET BY MOUTH DAILY 11/25/2015 02/22/2016 Inactive omeprazole 40 mg capsule,delayed release RxNorm: 757575 1 Capsu le(s) PO QD 11/12/2015 05/05/2016 Inactive oxycodone 10 mg tablet RxNorm: 5926721 1-2 Tablet(s) PO QID as n eeded for pain 11/05/2015 12/08/2015 Inactive Duragesic 100 mcg/hr transdermal patch RxNorm: 638424 2 Application TD Q48H for pain 11/05/2015 12/04/2015 Inactive omeprazole 40 mg capsule,delayed release RxNorm: 941247 1 Capsu le(s) PO QD 10/07/2015 11/11/2015 Inactive Januvia 100 mg tablet RxNorm: 516020 TAKE ONE TABLET BY MOUTH DAILY 09/11/2015 12/25/2015 Inactive Zithromax 500 mg tablet RxNorm: 976106 1 Tablet(s) PO QD 09/10/2015 1 Inactive prednisone 20 mg tablet RxNorm: 342751 1 Tablet(s) PO T ID for 3 days then 1 po BID for 3 days then one daily for 3 days 09/10/2015 08/25/2016 Inactiv e Wellbutrin XL 300 mg 24 hr tablet, extended release RxNorm: 182062 1 Tablet(s) PO QAM 09/10/2015 12/02/2015 Inactive Topamax 100 mg tablet RxNorm: 627176 TAKE ONE TABLET BY MOUTH EVERY NIGHT AT BEDTIME 09/02/2015 11/24/2015 Inactive Synthroid 112 mcg tablet RxNorm: 361333 TAKE ONE TABLET BY MOUT H DAILY 09/02/2015 11/25/2015 Inactive methocarbamol 750 mg tablet RxNorm: 776827 2 Tablet(s) PO TID as needed for muscle spasm 08/15/2015 01/09/2016 Inactive Wellbutrin XL 150 mg 24 hr tablet, extended release RxNorm: 792200 TAKE ONE TABLET BY MOUTH EVERY MORNING 08/13/2015 08/13/2015 Inactive gabapentin 600 mg tablet RxNorm: 193340 1 Tablet(s) PO BID 08/13/20 15 02/08/2016 Inactive Wellbutrin XL 300 mg 24 hr tablet, extended release RxNorm: 904899 1 Tablet(s) PO QAM 08/06/2015 09/09/2015 Inactive Wellbutrin XL 150 mg 24 hr tablet, extended release RxNorm: 435061 1 Tablet(s) PO QAM 07/18/2015 08/05/2015 Inactive prednisone 20 mg tablet RxNorm: 516265 1 Tablet(s) PO BID 07/18/2015 07/22/2015 Inactive doxycycline hyclate 100 mg tablet,delayed release RxNorm: 43 4018 1 Tablet(s) PO BID 07/18/2015 07/27/2015 Inactive pravastatin 40 mg tablet RxNorm: 770129 1 Tablet(s) PO QD NEEDS FASTING LAB 07/15/2015 07/14/2015 Inactive pravastatin 40 mg tablet RxNorm: 434105 1 Tablet(s) PO QD NEEDS FASTING LAB 07/15/2015 01/25/2018 Inactive Ventolin HFA 90 mcg/actuation aerosol inhaler RxNorm: 049058 2 Puff(s) INH Q4H 07/08/2015 07/07/2015 Inactive prn Premarin 0.45 mg tablet RxNorm: 399475 1 Tablet(s) PO QD 07/01/2015 0 12/22/2015 Inactive pravastatin 40 mg tablet RxNorm: 079960 1 Tablet(s) PO QD NEEDS FASTING LAB 06/14/2015 07/15/2015 Inactive Ventolin HFA 90 mcg/actuation aerosol inhaler RxNorm: 9787665 2 Puff(s) INH Q4H 06/06/2015 07/08/2015 Inactive prn albuterol sulfate 2.5 mg/3 mL (0.083 %) solution for n ebulization RxNorm: 564457 1 Unit Dose INH QID 05/30/2015 No Stop Date Active Duragesic 100 mcg/hr transdermal patch RxNorm: 239634 2 Application TD Q48H for pain 04/29/2015 05/28/2015 Inactive gabapentin 600 mg tablet RxNorm: 865432 1 Tablet(s) PO BID 04/11/20 15 08/13/2015 Inactive Onglyza 5 mg tablet RxNorm: 096643 1 Tablet(s) PO QD for blood suga r 04/10/2015 04/15/2015 Inactive [Brand Copay Card: RxBIN:[id number] PCN:CRISTIANA RxGRP:[id number] ID#:[id number]] methocarbamol 750 mg tablet RxNorm: 112102 2 Tablet(s) PO TID as needed for muscle spasm 03/28/2015 08/15/2015 Inactive pravastatin 40 mg tablet RxNorm: 546665 1 Tablet(s) PO QD 03/19/2015 03/18/2015 Inactive pravastatin 40 mg tablet RxNorm: 041856 1 Tablet(s) PO QD 03/19/2015 06/14/2015 Inactive lactulose 10 gram/15 mL oral solution RxNorm: 776766 [address]s) PO QD 03/07/2015 01/09/2016 Inactive TAKE 1 TABLESPOON BY MOUTH ONCE DAILY oxycodone 20 mg tablet RxNorm: 4202770 1 Tablet(s) PO QID as nee ded for pain 03/05/2015 07/08/2015 Inactive Topamax 100 mg tablet RxNorm: 410398 1 Tablet(s) PO QHS TAKE ONE TABLET BY MOUTH AT BEDTIME 02/25/2015 02/12/2019 Inactive metformin ER 500 mg tablet,extended release 24 hr RxNorm: 86 0975 1 Tablet(s) PO QD 02/11/2015 03/04/2015 Inactive take one tablet by mouth every day Daliresp 500 mcg tablet RxNorm: 6005650 1 Tablet(s) PO QD 02/11/2015 08/09/2015 Inactive Endocet 10 mg-325 mg tablet RxNorm: 9728083 1 Tablet(s) PO Q4H as needed for pain 01/23/2015 01/23/2015 Inactive gabapentin 600 mg tablet RxNorm: 539057 1 Tablet(s) PO BID 01/23/20 15 04/11/2015 Inactive methocarbamol 750 mg tablet RxNorm: 630711 2 Tablet(s) PO TID as needed for muscle spasm 01/15/2015 02/13/2015 Inactive fluoxetine 40 mg capsule RxNorm: 663323 1 Capsule(s) PO QD 01/14/20 15 12/23/2015 Inactive TAKE ONE CAPSULE BY MOUTH EV JANKI MORNING fluoxetine 20 mg capsule RxNorm: 684862 1 Capsule(s) PO QD 01/14/20 15 12/23/2015 Inactive Premarin 0.45 mg tablet RxNorm: 783865 1 Tablet(s) PO QD 01/02/2015 0 07/01/2015 Inactive Endocet 10 mg-325 mg tablet RxNorm: 4596774 1-2 Tablet(s) PO Q4H 02/12/2019 Inactive PRN PAIN Duragesic 100 mcg/hr transdermal patch RxNorm: 547923 2 Application TD Q48H for pain 12/25/2014 01/23/2015 Inactive Topamax 100 mg tablet RxNorm: 659218 1 Tablet(s) PO QHS TAKE ONE TABLET BY MOUTH AT BEDTIME 12/25/2014 02/24/2015 Inactive Tudorza Pressair 400 mcg/actuation breath activated RxNorm: 3246420 1 BID INHALE ONE PUFF INTO LUNGS TWO TIMES A DAY 12/17/2014 05/15/2015 Inactive Endocet 10 mg-325 mg tablet RxNorm: 0404404 1-2 Tablet(s) PO Q4H 12/19/2014 Inactive PRN PAIN Duragesic 100 mcg/hr transdermal patch RxNorm: 854879 2 Application TD Q48H for pain 11/20/2014 12/24/2014 Inactive [employer] Ultra Test strips RxNorm: TEST BLOOD SUGAR ONCE DAILY 250.00 11/16/2014 01/08/2016 Inactive omeprazole 40 mg capsule,delayed release RxNorm: 800011 1 Capsu le(s) PO QD 11/13/2014 11/12/2015 Inactive metformin ER 500 mg tablet,extended release 24 hr RxNorm: 86 0975 1 Tablet(s) PO QD 11/12/2014 02/11/2015 Inactive take one tablet by mouth every day Symbicort 160 mcg-4.5 mcg/actuation HFA aerosol inhaler RxNo rm: 5208528 2 Puff(s) INH BID 11/12/2014 03/11/2015 Inactive INHALE 2 PUFFS O RALLY TWO TIMES A DAY gabapentin 800 mg tablet RxNorm: 325507 1 Tablet(s) PO QD TAKE ONE TABLET BY MOUTH ONCE A DAY 10/22/2014 01/01/2015 Inactive Endocet 10 mg-325 mg tablet RxNorm: 7631932 1-2 Tablet(s) PO Q4H 11/15/2014 Inactive PRN PAIN Duragesic 100 mcg/hr transdermal patch RxNorm: 320291 2 Application TD Q48H for pain 10/17/2014 11/19/2014 Inactive gabapentin 800 mg tablet RxNorm: 373480 1 Tablet(s) PO QD TAKE ONE TABLET BY MOUTH ONCE A DAY 10/04/2014 10/21/2014 Inactive Premarin 0.9 mg tablet RxNorm: 707845 1 Tablet(s) PO QD TAKE ONE TABLET BY MOUTH ONCE A DAY 10/04/2014 01/01/2015 Inactive Spiriva with HandiHaler 18 mcg & inhalation capsules RxNorm: 613279 1 Capsule(s) INH QD 10/03/2014 04/30/2015 Inactive Levaquin 500 mg tablet RxNorm: 702665 1 Tablet(s) PO QD 10/03/2014 Inactive prednisone 20 mg tablet RxNorm: 604159 1 Tablet(s) PO QD 10/03/2014 1 12/09/2013 Inactive Duragesic 100 mcg/hr transdermal patch RxNorm: 334024 2 Application TD Q48H for pain 09/18/2014 10/16/2014 Inactive Endocet 10 mg-325 mg tablet RxNorm: 4401395 1-2 Tablet(s) PO Q4H 10/16/2014 Inactive PRN PAIN Synthroid 112 mcg tablet RxNorm: 983686 1 Tablet(s) QD 09/10/2014 Inactive Synthroid 112 mcg tablet RxNorm: 189432 TAKE ONE TABLET BY MOUTH ONE TIME A DAY. NEEDS LABS 09/10/2014 02/06/2015 Inactive omeprazole 40 mg capsule,delayed release RxNorm: 305983 1 Capsu le(s) PO QD 09/03/2014 11/13/2014 Inactive omeprazole 40 mg capsule,delayed release RxNorm: 890502 1 Capsu le(s) PO QD 09/03/2014 09/02/2014 Inactive Spiriva with HandiHaler 18 mcg & inhalation capsules RxNorm: 317768 1 Capsule(s) INH QD 08/27/2014 10/02/2014 Inactive gabapentin 600 mg tablet RxNorm: 202143 1 Tablet(s) PO BID 08/27/20 14 10/22/2014 Inactive Endocet 10 mg-325 mg tablet RxNorm: 8109785 1-2 Tablet(s) PO Q4H 09/17/2014 Inactive PRN PAIN fentanyl 100 mcg/hr transdermal patch RxNorm: 250296 1 Unit Dos e TD QD 08/21/2014 09/19/2014 Inactive Daliresp 500 mcg tablet RxNorm: 9447961 1 Tablet(s) PO QD 08/13/2014 02/11/2015 Inactive Synthroid 112 mcg tablet RxNorm: 310041 TAKE ONE TABLET BY MOUTH ONE TIME A DAY. NEEDS LABS 08/10/2014 09/10/2014 Inactive Endocet 10 mg-325 mg tablet RxNorm: 5759214 1-2 Tablet(s) PO Q4H 08/17/2014 Inactive PRN PAIN Duragesic 100 mcg/hr transdermal patch RxNorm: 440460 2 Application TD Q48H for pain 07/19/2014 09/17/2014 Inactive fluoxetine 40 mg capsule RxNorm: 282762 1 Capsule(s) PO QD 07/17/20 14 01/14/2015 Inactive TAKE ONE CAPSULE BY MOUTH EV JANKI MORNING fluoxetine 20 mg capsule RxNorm: 067973 1 Capsule(s) PO QD 07/17/20 14 01/14/2015 Inactive Spiriva with HandiHaler 18 mcg & inhalation capsules RxNorm: 731879 1 Capsule(s) INH QD 07/17/2014 08/26/2014 Inactive INHALE CONTENTS OF 1 CAPSULE(S) WITH HANDIHALER ONCE DAILY Zofran 4 mg tablet RxNorm: 559062 1 Tablet(s) PO Q4H prn nausea 07/25/2014 Inactive Synthroid 112 mcg tablet RxNorm: 196050 1 Tablet(s) PO QD 07/09/2014 07/09/2014 Inactive methocarbamol 750 mg tablet RxNorm: 355510 2 Tablet(s) PO TID as needed for muscle spasm 07/09/2014 09/06/2014 Inactive Synthroid 112 mcg tablet RxNorm: 510470 1 Tablet(s) PO QD - nee d labs 07/09/2014 08/07/2014 Inactive Medrol (Aníbal) 4 mg tablets in a dose pack RxNorm: 718199 6 Tablet(s) PO QD --then as directed 07/03/2014 07/08/2014 Inactive Tudorza Pressair 400 mcg/actuation breath activated RxNorm: 2645834 1 Puff(s) INH BID 07/03/2014 12/17/2014 Inactive cefdinir 300 mg capsule RxNorm: 905086 1 Capsule(s) PO BID 07/03/20 14 07/12/2014 Inactive Topamax 100 mg tablet RxNorm: 436599 Tablet(s) TAKE ONE TABLET BY MOUTH AT BEDTIME 07/02/2014 02/25/2015 Inactive Duragesic 100 mcg/hr transdermal patch RxNorm: 378599 2 Application TD Q48H for pain 06/25/2014 07/18/2014 Inactive Endocet 10 mg-325 mg tablet RxNorm: 7760796 1-2 Tablet(s) PO Q4H 07/18/2014 Inactive PRN PAIN metformin ER 500 mg tablet,extended release 24 hr RxNorm: 86 0975 1 Tablet(s) PO QD Needs labs 06/18/2014 07/01/2014 Inactive take one tablet by mouth every day Duragesic 100 mcg/hr transdermal patch RxNorm: 551266 2 Application TD Q48H for pain 05/22/2014 06/24/2014 Inactive Synthroid 112 mcg tablet RxNorm: 648971 1 Tablet(s) PO QD 05/22/2014 07/09/2014 Inactive Endocet 10 mg-325 mg tablet RxNorm: 3371061 1-2 Tablet(s) PO Q4H 06/20/2014 Inactive PRN PAIN Endocet 10 mg-325 mg tablet RxNorm: 5167973 1-2 Tablet(s) PO Q4H 05/21/2014 Inactive PRN PAIN Duragesic 100 mcg/hr transdermal patch RxNorm: 072254 2 Application TD Q48H for pain 04/25/2014 05/21/2014 Inactive Daliresp 500 mcg tablet RxNorm: 2316947 1 Tablet(s) PO QD 04/24/2014 08/13/2014 Inactive Symbicort 160 mcg-4.5 mcg/actuation HFA aerosol inhaler RxNo rm: 7345052 2 Puff(s) INH BID 04/24/2014 08/21/2014 Inactive INHALE 2 PUFFS O RALLY TWO TIMES A DAY metformin ER 500 mg tablet,extended release 24 hr RxNorm: 86 0975 1 Tablet(s) PO QD 04/24/2014 11/12/2014 Inactive TAKE ONE TABLET BY MOUTH EVERY DAY [AttnRPh:Saving Apply/Adjudicate RxGRP:LDMGRP RxBIN:[id number] RxPCN:2012 PCode:01 ID#:[id number]] Symbicort 160 mcg-4.5 mcg/actuation HFA aerosol inhaler RxNo rm: 5008110 2 Puff(s) INH BID 04/24/2014 11/12/2014 Inactive INHALE 2 PUFFS O RALLY TWO TIMES A DAY Premarin 0.9 mg tablet RxNorm: 023216 1 Tablet(s) PO QD 04/24/2014 Inactive TAKE ONE TABLET BY MOUTH EVERY DAY metformin ER 500 mg tablet,extended release 24 hr RxNorm: 86 0975 1 Tablet(s) PO QD Needs labs 04/24/2014 06/18/2014 Inactive TAKE ONE TABLET BY MOUTH EVERY DAY [AttnRPh:Saving Apply/Adjudicate RxGRP:LDMGRP RxBIN:[id number] RxPCN:2012 PCode:01 ID#:[id number]] gabapentin 800 mg tablet RxNorm: 502755 1 Tablet(s) PO QD 04/24/2014 10/04/2014 Inactive TAKE ONE TABLET BY MOUTH EVERY DAY Topamax 100 mg tablet RxNorm: 614827 1 Tablet(s) PO QHS 04/17/2014 Inactive Topamax 100 mg tablet RxNorm: 402421 TAKE ONE TABLET BY MOUTH A T BEDTIME 04/17/2014 07/01/2014 Inactive Tudorza Pressair 400 mcg/actuation breath activated RxNorm: 3953939 1 Puff(s) INH BID 04/11/2014 07/02/2014 Inactive Duragesic 100 mcg/hr transdermal patch RxNorm: 849114 2 Application TD Q48H for pain 03/27/2014 04/24/2014 Inactive Endocet 10 mg-325 mg tablet RxNorm: 9223094 1-2 Tablet(s) PO Q4H 04/24/2014 Inactive PRN PAIN Robaxin 750 mg tablet RxNorm: 739481 2 Tablet(s) PO TID as need ed for spasm 02/23/2014 03/28/2015 Inactive Duragesic 100 mcg/hr transdermal patch RxNorm: 514521 2 Application TD Q48H for pain 02/23/2014 No Stop Date Active Endocet 10 mg-325 mg tablet RxNorm: 3367062 1-2 Tablet(s) PO Q4H 03/23/2014 Inactive PRN PAIN Synthroid 112 mcg tablet RxNorm: 538481 1 Tablet(s) PO QD TAKE ONE TABLET BY MOUTH EVERY DAY 02/15/2014 05/22/2014 Inactive Zithromax 500 mg tablet RxNorm: 790249 1 Tablet(s) PO QD 01/30/2014 0 02/05/2014 Inactive Diflucan 100 mg tablet RxNorm: 151704 1 Tablet(s) PO QD 01/30/2014 Inactive prednisone 20 mg tablet RxNorm: 877364 1 Tablet(s) PO BID 01/30/2014 02/05/2014 Inactive fluoxetine 40 mg capsule RxNorm: 741559 1 Capsule(s) PO QD 01/23/20 14 07/16/2014 Inactive TAKE ONE CAPSULE BY MOUTH EV JANKI MORNING fluoxetine 40 mg capsule RxNorm: 316283 1 Capsule(s) PO QD 01/23/20 14 07/17/2014 Inactive TAKE ONE CAPSULE BY MOUTH EV JANKI MORNING cefdinir 300 mg capsule RxNorm: 086818 1 Capsule(s) PO BID 01/16/20 14 01/29/2014 Inactive Zithromax 500 mg tablet RxNorm: 227727 1 Tablet(s) PO QD 01/16/2014 0 01/22/2014 Inactive prednisone 20 mg tablet RxNorm: 088119 1 Tablet(s) PO BID 01/16/2014 01/22/2014 Inactive Spiriva with HandiHaler 18 mcg and inhalation capsules RxNor m: 137437 1 Capsule(s) INH QD 12/18/2013 07/17/2014 Inactive INHALE CONTENT S OF 1 CAPSULE(S) WITH HANDIHALER ONCE DAILY fluoxetine 20 mg capsule RxNorm: 488315 1 Capsule(s) PO QD 12/18/19 14 06/15/2014 Inactive Spiriva with HandiHaler 18 mcg & inhalation capsules RxNorm: 925382 1 Capsule(s) INH QD 12/18/2013 06/15/2014 Inactive INHALE CONTENTS OF 1 CAPSULE(S) WITH HANDIHALER ONCE DAILY fluoxetine 20 mg capsule RxNorm: 633580 1 Capsule(s) PO QD 12/18/19 14 07/17/2014 Inactive cefdinir 300 mg capsule RxNorm: 440763 2 Capsule(s) PO QD 12/12/2013 12/21/2013 Inactive Duragesic 100 mcg/hr transdermal patch RxNorm: 080050 2 Application TD Q48H for pain 12/08/2013 12/07/2013 Inactive Topamax 100 mg tablet RxNorm: 176944 1 Tablet(s) PO QHS 12/04/2013 Inactive Endocet 10 mg-325 mg tablet RxNorm: 9143414 1-2 Tablet(s) PO Q4H 12/26/2013 Inactive PRN PAIN Robaxin 750 mg tablet RxNorm: 685134 2 Tablet(s) PO TID as need ed for spasm 11/07/2013 01/05/2014 Inactive gabapentin 800 mg tablet RxNorm: 593144 1 Tablet(s) PO QD 10/16/2013 04/24/2014 Inactive TAKE ONE TABLET BY MOUTH EVERY DAY Symbicort 160 mcg-4.5 mcg/actuation HFA aerosol inhaler RxNo rm: 3617432 2 Puff(s) INH BID 10/16/2013 04/24/2014 Inactive INHALE 2 PUFFS O RALLY TWO TIMES A DAY Premarin 0.9 mg tablet RxNorm: 992199 1 Tablet(s) PO QD 10/16/2013 Inactive TAKE ONE TABLET BY MOUTH EVERY DAY metformin ER 500 mg tablet,extended release 24 hr RxNorm: 86 0975 1 Tablet(s) PO QD 10/16/2013 04/24/2014 Inactive TAKE ONE TABLET BY MOUTH EVERY DAY Daliresp 500 mcg tablet RxNorm: 0303809 1 Tablet(s) PO QD 10/16/2013 04/24/2014 Inactive Robaxin 750 mg tablet RxNorm: 577053 2 Tablet(s) PO TID as need ed for spasm 10/10/2013 11/06/2013 Inactive Duragesic 100 mcg/hr transdermal patch RxNorm: 392416 2 Application TD Q48H for pain 10/09/2013 No Stop Date Active Soma 350 mg tablet RxNorm: 074100 1 Tablet(s) PO TID 09/27/201310/09 Inactive TAKE ONE TABLET BY MOUTH THREE TIMES A D AY lactulose 10 gram/15 mL oral solution RxNorm: 437400 [address](s) PO QD 09/13/2013 03/07/2015 Inactive TAKE 1 TABLESPOON BY MOUTH ONCE DAILY Duragesic 100 mcg/hr transdermal patch RxNorm: 351574 2 Application TD Q48H for pain 09/06/2013 No Stop Date Active Endocet 10 mg-325 mg tablet RxNorm: 6043409 1-2 Tablet(s) PO Q4H 09/27/2013 Inactive PRN PAIN lancets 28 gauge RxNorm: Miscellaneous As needed for blo od glucose sticks 08/24/2013 No Stop Date Active 16.2 mg-0.1037 mg-0.0194 mg tablet RxNorm: 4975492 Tablet(s) PO PRN for gas and cramping 08/24/2013 01/19/2017 Inactive TAKE TWO TABLET S BY MOUTH THREE TIMES A DAY NEEDED FOR GAS AND CRAMPING Topamax 100 mg tablet RxNorm: 477428 1 Tablet(s) PO QHS 07/31/2013 Inactive Diflucan 100 mg tablet RxNorm: 293643 1 Tablet(s) PO QD 07/27/2013 Inactive cefdinir 300 mg capsule RxNorm: 691946 1 Capsule(s) PO BID 07/26/20 13 08/08/2013 Inactive Daliresp 500 mcg tablet RxNorm: 2580895 1 Tablet(s) PO QD 07/25/2013 10/15/2013 Inactive fluoxetine 40 mg capsule RxNorm: 763251 1 Capsule(s) PO QD 07/25/20 13 01/22/2014 Inactive TAKE ONE CAPSULE BY MOUTH EV JANKI MORNING Senokot-S 8.6 mg-50 mg tablet RxNorm: 2053540 1 Tablet(s) PO BID 10/25/2013 Inactive doxycycline hyclate 100 mg capsule RxNorm: 2486572 1 Capsule(s) PO BID 06/28/2013 07/07/2013 Inactive prednisone 20 mg tablet RxNorm: 514642 1 Tablet(s) PO BID 06/28/2013 07/04/2013 Inactive Zofran 4 mg tablet RxNorm: 641952 1 Tablet(s) PO Q4H prn nausea 03/201307/05/2013 Inactive Spiriva with HandiHaler 18 mcg & inhalation capsules RxNorm: 549488 1 Capsule(s) INH QD 06/26/2013 12/18/2013 Inactive INHALE CONTENTS OF 1 CAPSULE(S) WITH HANDIHALER ONCE DAILY Synthroid 112 mcg tablet RxNorm: 617966 1 Tablet(s) PO QD TAKE ONE TABLET BY MOUTH EVERY DAY 06/19/2013 02/15/2014 Inactive fluoxetine 20 mg capsule RxNorm: 023830 1 Capsule(s) PO QD 06/19/20 13 12/18/2013 Inactive Ventolin HFA 90 mcg/actuation Aerosol Inhaler RxNorm: 0167155 2 Puff(s) INH Q4H 06/05/2013 No Stop Date Active prn Soma 350 mg tablet RxNorm: 224602 1 Tablet(s) PO TID 06/05/201307/04 Inactive TAKE ONE TABLET BY MOUTH THREE TIMES A D AY prednisone 20 mg tablet RxNorm: 344876 1 Tablet(s) PO QD 05/31/2013 0 06/06/2013 Inactive Topamax 100 mg tablet RxNorm: 974227 1 Tablet(s) PO QHS 05/22/2013 Inactive Levaquin 500 mg tablet RxNorm: 932904 1 Tablet(s) PO QD 05/03/2013 Inactive Diflucan 100 mg tablet RxNorm: 440048 1 Tablet(s) PO QD 05/03/2013 Inactive Daliresp 500 mcg tablet RxNorm: 1412088 1 Tablet(s) PO QD 05/01/2013 07/24/2013 Inactive Daliresp 500 mcg tablet RxNorm: 2549491 1 Tablet(s) PO QD 05/01/2013 04/30/2013 Inactive gabapentin 800 mg tablet RxNorm: 585478 1 Tablet(s) PO QD 04/10/2013 10/06/2013 Inactive TAKE ONE TABLET BY MOUTH EVERY DAY metformin ER 500 mg tablet,extended release 24 hr RxNorm: 86 0977 1 Tablet(s) PO QD 04/10/2013 10/06/2013 Inactive TAKE ONE TABLET BY MOUTH EVERY DAY Premarin 0.9 mg tablet RxNorm: 557983 1 Tablet(s) PO QD 04/10/2013 Inactive TAKE ONE TABLET BY MOUTH EVERY DAY Symbicort 160 mcg-4.5 mcg/actuation HFA aerosol inhaler RxNo rm: 3135585 2 Puff(s) INH BID 04/10/2013 10/06/2013 Inactive INHALE 2 PUFFS O RALLY TWO TIMES A DAY Synthroid 112 mcg tablet RxNorm: 380912 1 Tablet(s) PO QD TAKE ONE TABLET BY MOUTH EVERY DAY 04/10/2013 06/18/2013 Inactive Ventolin HFA 90 mcg/actuation Aerosol Inhaler RxNorm: 9890159 2 Puff(s) INH Q4H 04/10/2013 No Stop Date Active prn fentanyl 100 mcg/hr transdermal patch RxNorm: 640347 1 Unit Dos e TD QD 04/03/2013 05/02/2013 Inactive Endocet 10 mg-325 mg tablet RxNorm: 7612933 1-2 Tablet(s) PO Q4H 05/02/2013 Inactive PRN PAIN Topamax 100 mg tablet RxNorm: 731344 1 Tablet(s) PO QHS 03/13/2013 Inactive Reglan 10 mg tablet RxNorm: 312747 1 Tablet(s) PO QID b efore meals and at bedtime 03/13/2013 04/09/2015 Inactive fluoxetine 20 mg capsule RxNorm: 134137 1 Capsule(s) PO QD 02/28/20 13 05/27/2013 Inactive Ventolin HFA 90 mcg/actuation Aerosol Inhaler RxNorm: 9473249 2 Puff(s) INH Q4H 02/13/2013 No Stop Date Active prn fluoxetine 40 mg capsule RxNorm: 036713 1 Capsule(s) PO QD 01/31/20 13 07/24/2013 Inactive TAKE ONE CAPSULE BY MOUTH EV JANKI MORNING Soma 350 mg tablet RxNorm: 818513 1 Tablet(s) PO TID 01/20/201302/18 Inactive TAKE ONE TABLET BY MOUTH THREE TIMES A D AY Endocet 10 mg-325 mg tablet RxNorm: 3709703 1-2 Tablet(s) PO Q4H 02/06/2013 Inactive PRN PAIN MS Contin 200 mg tablet,extended release RxNorm: 354685 1 Table t(s) PO BID 01/18/2013 02/06/2013 Inactive Ventolin HFA 90 mcg/actuation Aerosol Inhaler RxNorm: 3755580 2 Puff(s) INH Q4H 01/04/2013 No Stop Date Active prn Spiriva with HandiHaler 18 mcg & inhalation capsules RxNorm: 602851 1 Capsule(s) INH QD 12/29/2012 06/25/2013 Inactive INHALE CONTENTS OF 1 CAPSULE(S) WITH HANDIHALER ONCE DAILY Spiriva with HandiHaler 18 mcg & inhalation capsules RxNorm: 445576 1 Capsule(s) INH QD 12/26/2012 12/28/2012 Inactive INHALE CONTENTS OF 1 CAPSULE(S) WITH HANDIHALER ONCE DAILY Synthroid 112 mcg tablet RxNorm: 138735 Tablet(s) PO TA KE ONE TABLET BY MOUTH EVERY DAY 12/26/2012 04/09/2013 Inactive Endocet 10 mg-325 mg tablet RxNorm: 8818047 1-2 Tablet(s) PO Q4H 01/17/2013 Inactive PRN PAIN MS Contin 200 mg tablet,extended release RxNorm: 301151 1 Table t(s) PO BID 12/21/2012 01/17/2013 Inactive fluoxetine 20 mg capsule RxNorm: 174871 1 Capsule(s) PO QD 12/06/19 13 02/26/2013 Inactive Synthroid 112 mcg tablet RxNorm: 693530 1 Tablet(s) PO QD 12/06/2012 02/12/2019 Inactive TAKE ONE TABLET BY MOUTH EVERY DAY Ventolin HFA 90 mcg/actuation Aerosol Inhaler RxNorm: 3340029 2 Puff(s) INH Q4H 12/06/2012 No Stop Date Active prn Reglan 10 mg tablet RxNorm: 461981 1 Tablet(s) PO QID b efore meals and at bedtime 11/24/2012 03/12/2013 Inactive Topamax 100 mg tablet RxNorm: 976017 1 Tablet(s) PO QHS 11/16/2012 Inactive Ventolin HFA 90 mcg/actuation Aerosol Inhaler RxNorm: 9432082 2 Puff(s) INH Q4H 11/09/2012 No Stop Date Active prn gabapentin 800 mg tablet RxNorm: 051647 1 Tablet(s) PO QD 10/27/2012 04/09/2013 Inactive TAKE ONE TABLET BY MOUTH EVERY DAY metformin ER 500 mg tablet,extended release 24 hr RxNorm: 86 0977 1 Tablet(s) PO QD 10/27/2012 04/09/2013 Inactive TAKE ONE TABLET BY MOUTH EVERY DAY Symbicort 160 mcg-4.5 mcg/actuation HFA Aerosol Inhaler RxNo rm: 5580933 2 Puff(s) INH BID 10/27/2012 04/09/2013 Inactive INHALE 2 PUFFS O RALLY TWO TIMES A DAY Premarin 0.9 mg tablet RxNorm: 660035 1 Tablet(s) PO QD 10/27/2012 Inactive TAKE ONE TABLET BY MOUTH EVERY DAY Endocet 10 mg-325 mg tablet RxNorm: 5964100 1-2 Tablet(s) PO Q4H 11/24/2012 Inactive PRN PAIN MS Contin 200 mg tablet,extended release RxNorm: 681947 1 Table t(s) PO BID 10/26/2012 11/24/2012 Inactive Soma 350 mg tablet RxNorm: 982364 1 Tablet(s) PO TID 10/04/201211/02 Inactive TAKE ONE TABLET BY MOUTH THREE TIMES A D AY Ventolin HFA 90 mcg/actuation Aerosol Inhaler RxNorm: 4678326 2 Puff(s) INH Q4H 10/03/2012 No Stop Date Active prn Daliresp 500 mcg tablet RxNorm: 4050675 1 Tablet(s) PO QD 09/28/2012 09/27/2012 Inactive Daliresp 500 mcg tablet RxNorm: 3121893 1 Tablet(s) PO QD 09/28/2012 04/25/2013 Inactive fluoxetine 20 mg capsule RxNorm: 918408 1 Capsule(s) PO QD 09/05/2012/06/2012 Inactive Topamax 50 mg tablet RxNorm: 412997 Tablet(s) PO for 1w k then 1 po q HS for 1wk then 2 po q HS 08/29/2012 09/27/2012 Inactive TAKE 1/2 TABLET BY MOUTH AT BEDTIME FOR 1 WEEK, THEN 1 TABLET AT BEDTIME FOR 1 WEEK, THEN 2 TABLETS AT BEDTIME Topamax 100 mg tablet RxNorm: 701886 1 Tablet(s) PO QHS 08/29/2012 Inactive Ventolin HFA 90 mcg/actuation Aerosol Inhaler RxNorm: 3723795 2 Puff(s) INH Q4H 08/19/2012 No Stop Date Active prn Ventolin HFA 90 mcg/actuation Aerosol Inhaler RxNorm: 7962166 2 Puff(s) INH Q4H 08/15/2012 No Stop Date Active prn Synthroid 112 mcg tablet RxNorm: 282181 1 Tablet(s) PO QD 08/10/2012 11/07/2012 Inactive TAKE ONE TABLET BY MOUTH EVERY DAY Synthroid 112 mcg tablet RxNorm: 593402 1 Tablet(s) PO QD 08/01/2012 08/09/2012 Inactive TAKE ONE TABLET BY MOUTH EVERY DAY Reglan 10 mg tablet RxNorm: 003893 1 Tablet(s) PO QID b efore meals and at bedtime 08/01/2012 11/23/2012 Inactive fluoxetine 40 mg capsule RxNorm: 490144 1 Capsule(s) PO QD 08/01/20 12 01/27/2013 Inactive TAKE ONE CAPSULE BY MOUTH EV JANKI MORNING Ventolin HFA 90 mcg/actuation Aerosol Inhaler RxNorm: 1321265 2 Puff(s) INH Q4H 08/01/2012 No Stop Date Active prn Soma 350 mg tablet RxNorm: 642185 1 Tablet(s) PO TID 07/20/201208/18 Inactive TAKE ONE TABLET BY MOUTH THREE TIMES A D AY Spiriva with HandiHaler 18 mcg & inhalation capsules RxNorm: 898247 1 Capsule(s) INH 07/01/2012 12/25/2012 Inactive INHALE CONTENTS OF 1 CAPSULE(S) WITH HANDIHALER ONCE DAILY Zithromax 250 mg Tab RxNorm: 093815 2 Tablet(s) PO QD 06/28/201206/22 Inactive MS Contin 200 mg tablet,extended release RxNorm: 981966 1 Table t(s) PO BID 06/28/2012 07/27/2012 Inactive Endocet 10 mg-325 mg tablet RxNorm: 0610149 1-2 Tablet(s) PO Q4H 07/27/2012 Inactive PRN PAIN Topamax 100 mg tablet RxNorm: 232468 1 Tablet(s) PO QHS 06/28/2012 Inactive 16.2 mg-0.1037 mg-0.0194 mg tablet RxNorm: 8281586 Tablet(s) PO PRN for gas and cramping 06/08/2012 08/23/2013 Inactive TAKE TWO TABLET S BY MOUTH THREE TIMES A DAY NEEDED FOR GAS AND CRAMPING Ventolin HFA 90 mcg/actuation Aerosol Inhaler RxNorm: 6136066 2 Puff(s) INH Q4H 05/23/2012 No Stop Date Active prn Ventolin HFA 90 mcg/actuation Aerosol Inhaler RxNorm: 2090798 2 Puff(s) INH Q4H 05/11/2012 No Stop Date Active prn Synthroid 112 mcg tablet RxNorm: 267248 1 Tablet(s) PO QD 05/09/2012 07/31/2012 Inactive TAKE ONE TABLET BY MOUTH EVERY DAY gabapentin 800 mg tablet RxNorm: 978177 1 Tablet(s) PO QD 05/09/2012 10/26/2012 Inactive TAKE ONE TABLET BY MOUTH EVERY DAY fluoxetine 40 mg capsule RxNorm: 878929 1 Capsule(s) PO QD 05/09/2007/31/2012 Inactive TAKE ONE CAPSULE BY MOUTH EV JANKI MORNING metformin ER 500 mg tablet,extended release 24 hr RxNorm: 86 0977 1 Tablet(s) PO QD 05/09/2012 10/26/2012 Inactive TAKE ONE TABLET BY MOUTH EVERY DAY Premarin 0.9 mg tablet RxNorm: 206213 1 Tablet(s) PO QD 05/09/2012 Inactive TAKE ONE TABLET BY MOUTH EVERY DAY Symbicort 160 mcg-4.5 mcg/actuation HFA Aerosol Inhaler RxNo rm: 3735909 2 Puff(s) INH BID 05/09/2012 10/26/2012 Inactive INHALE 2 PUFFS O RALLY TWO TIMES A DAY Endocet 10 mg-325 mg Tab RxNorm: 1256607 1-2 Tablet(s) PO Q4H 04/2705/26/2012 Inactive PRN PAIN MS Contin 200 mg Tab RxNorm: 207712 1 Tablet(s) PO BID 04/26/201202/2012 Inactive Ventolin HFA 90 mcg/actuation Aerosol Inhaler RxNorm: 1359968 2 Puff(s) INH Q4H 04/25/2012 05/10/2012 Inactive prn Soma 350 mg tablet RxNorm: 906225 2 Tablet(s) PO TID 04/19/201207/19 Inactive TAKE ONE TABLET BY MOUTH THREE TIMES A D AY Ventolin HFA 90 mcg/actuation Aerosol Inhaler RxNorm: 5244431 2 Puff(s) INH Q4H 04/12/2012 04/24/2012 Inactive prn Reglan 10 mg tablet RxNorm: 929641 1 Tablet(s) PO QID b efore meals and at bedtime 04/11/2012 07/31/2012 Inactive MS Contin 200 mg Tab RxNorm: 002664 1 Tablet(s) PO BID 03/30/201202/2012 Inactive Endocet 10 mg-325 mg Tab RxNorm: 5893768 1-2 Tablet(s) PO Q4H 03/3004/26/2012 Inactive PRN PAIN MS Contin 200 mg Tab RxNorm: 609237 1 Tablet(s) PO BID 03/02/201206/2012 Inactive Endocet 10 mg-325 mg Tab RxNorm: 0172030 1-2 Tablet(s) PO Q4H 03/0203/29/2012 Inactive PRN PAIN Daliresp 500 mcg tablet RxNorm: 6982375 1 Tablet(s) PO QD 03/01/2012 09/28/2012 Inactive MS Contin 200 mg Tab RxNorm: 753542 1 Tablet(s) PO BID 02/02/201208/2012 Inactive Endocet 10 mg-325 mg Tab RxNorm: 4736997 1-2 Tablet(s) PO Q4H 02/0103/01/2012 Inactive PRN PAIN fluoxetine 40 mg capsule RxNorm: 697818 1 Capsule(s) PO QD 02/02/2008/01/2012 Inactive TAKE ONE CAPSULE BY MOUTH EV JANKI MORNING Synthroid 112 mcg Tab RxNorm: 594365 1 Tablet(s) PO QD 01/18/2012 Inactive TAKE ONE TABLET BY MOUTH EVERY DAY lactulose 10 gram/15 mL oral solution RxNorm: 625078 [address]s) PO QD 01/18/2012 No Stop Date Active TAKE 1 TABLESPOON BY MOUTH ONCE DAILY Ventolin HFA 90 mcg/actuation Aerosol Inhaler RxNorm: 0825120 2 Puff(s) INH Q4H 01/18/2012 04/11/2012 Inactive prn MS Contin 200 mg Tab RxNorm: 701660 1 Tablet(s) PO BID 01/05/201210/2012 Inactive Endocet 10 mg-325 mg Tab RxNorm: 3571551 1-2 Tablet(s) PO Q4H 01/0502/01/2012 Inactive PRN PAIN ProAir HFA 90 mcg/Actuation Aerosol Inhaler RxNorm: 2252288 2 Pu ff(s) INH Q4H 12/21/2011 No Stop Date Active prn for wheezing or shortness of breath Spiriva with HandiHaler 18 mcg & inhalation Caps RxNorm: 580 261 1 Capsule(s) INH 12/21/2011 06/30/2012 Inactive INHALE CONTENTS OF 1 CAPSULE(S) WITH HANDIHALER ONCE DAILY Reglan 10 mg Tab RxNorm: 400679 1 Tablet(s) PO QID before meals and at bedtime 12/21/2011 04/10/2012 Inactive Synthroid 112 mcg Tab RxNorm: 937619 1 Tablet(s) PO QD 12/21/2011 Inactive TAKE ONE TABLET BY MOUTH EVERY DAY Endocet 10 mg-325 mg Tab RxNorm: 9374964 1-2 Tablet(s) PO Q4H 11/2512/24/2011 Inactive PRN PAIN MS Contin 200 mg Tab RxNorm: 869168 1 Tablet(s) PO BID 11/25/201112/2011 Inactive lactulose 10 gram/15 mL Oral Soln RxNorm: 198278 Milliliter(s) PO 1 No Stop Date Active TAKE 1 TABLESPOON BY MOUTH O NCE DAILY lactulose 10 gram/15 mL Oral Soln RxNorm: 980519 Milliliter(s) PO 1 12/12/2010 11/20/2011 Inactive TAKE 1 TABLESPOON BY MOUTH O NCE DAILY Premarin 0.9 mg Tab RxNorm: 471366 1 Tablet(s) PO QD 10/12/201105/08 Inactive TAKE ONE TABLET BY MOUTH EVERY DAY fluoxetine 20 mg capsule RxNorm: 113886 1 Capsule(s) PO QD 10/12/20 11 09/05/2012 Inactive TAKE ONE CAPSULE BY MOUTH EV JANKI DAY Synthroid 112 mcg Tab RxNorm: 489878 1 Tablet(s) PO QD 10/12/2011 Inactive TAKE ONE TABLET BY MOUTH EVERY DAY metformin ER 500 mg 24 hr Tab RxNorm: 095156 1 Tablet(s) PO QD 09/2311/10/2011 Inactive TAKE ONE TABLET BY MOUTH GLYNN RY DAY Synthroid 112 mcg Tab RxNorm: 820187 1 Tablet(s) PO QD 10/12/2011 Inactive TAKE ONE TABLET BY MOUTH EVERY DAY metformin ER 500 mg 24 hr Tab RxNorm: 175650 1 Tablet(s) PO QD 09/2310/11/2011 Inactive TAKE ONE TABLET BY MOUTH GLYNN Prevacid 30 mg Cap RxNorm: 068752 Capsule(s) PO 10/12/2011 01/25/2012 Inactive TAKE ONE CAPSULE BY MOUTH EVERY DAY Symbicort 160 mcg-4.5 mcg/actuation HFA Aerosol Inhaler RxNo rm: 7659415 2 Puff(s) INH BID 10/12/2011 05/08/2012 Inactive INHALE 2 PUFFS O RALLY TWO TIMES A DAY gabapentin 800 mg Tab RxNorm: 969167 1 Tablet(s) PO QD 10/12/2011 Inactive TAKE ONE TABLET BY MOUTH EVERY DAY MS Contin 200 mg Tab RxNorm: 400219 1 Tablet(s) PO BID 09/23/201111/2010 Inactive Endocet 10 mg-325 mg Tab RxNorm: 5436238 1-2 Tablet(s) PO Q4H 09/2310/22/2011 Inactive PRN PAIN Endocet 10 mg-325 mg Tab RxNorm: 7414573 1-2 Tablet(s) PO Q4H 08/2109/19/2011 Inactive PRN PAIN MS Contin 200 mg Tab RxNorm: 275850 1 Tablet(s) PO BID 08/21/2011 Inactive Diflucan 100 mg Tab RxNorm: 512224 1 Tablet(s) PO QD 08/10/201108/16 Inactive cefdinir 300 mg Cap RxNorm: 455675 2 Capsule(s) PO QD 08/10/201107/24 Inactive Reglan 10 mg Tab RxNorm: 443690 1 Tablet(s) PO AC & HS 07/15/2011 Inactive Endocet 10 mg-325 mg Tab RxNorm: 7174056 1-2 Tablet(s) PO Q4H 07/1508/13/2011 Inactive PRN PAIN One Touch Ultra Test strips RxNorm: Miscellaneous BID 06/11/2011 1 01/16/2014 Inactive TEST TWO TIMES A DAY lactulose 10 gram/15 mL Oral Soln RxNorm: 143763 Milliliter(s) PO 0 06/10/2011 10/11/2011 Inactive TAKE 1 TABLESPOON BY MOUTH O NCE DAILY Chantix Continuing Month Aníbal 1 mg Tab RxNorm: 195920 Tablet(s) PO 0 06/10/2011 11/02/2011 Inactive TAKE DIRECTED - PER PACK[employer] GE INSTRUCTIONS fluoxetine 40 mg Cap RxNorm: 411920 Capsule(s) PO 06/10/2011 02/02/20 12 Inactive TAKE ONE CAPSULE BY MOUTH EVERY MORNING Chantix Continuing Month Aníbal 1 mg Tab RxNorm: 291976 Ta blet(s) PO TAKE DIRECTED - PER PACKAGE INSTRUCTIONS 05/13/2011 06/09/2011 Inactive Soma 350 mg Tab RxNorm: 915927 Tablet(s) PO TAKE ON E TABLET BY MOUTH THREE TIMES A DAY 05/13/2011 04/18/2012 Inactive Chantix Continuing Month Aníbal 1 mg Tab RxNorm: 119637 Ta blet(s) PO as directed per package instructions. 04/22/2011 05/12/2011 Inactive Symbicort 160 mcg-4.5 mcg/Actuation HFA Aerosol Inhaler RxNo rm: 6775969 HFA Aerosol Inhaler INH INHALE 2 PUFFS ORALLY TWO TIMES A DAY 04/13/2011 Inactive Synthroid 112 mcg Tab RxNorm: 727368 Tablet(s) PO TAKE ONE TABLET BY MOUTH EVERY DAY 04/13/2011 10/12/2011 Inactive Premarin 0.9 mg Tab RxNorm: 978743 Tablet(s) PO TAKE ON E TABLET BY MOUTH EVERY DAY 04/13/2011 10/12/2011 Inactive gabapentin 800 mg Tab RxNorm: 909513 Tablet(s) PO TAKE ONE TABLET BY MOUTH EVERY DAY 04/13/2011 10/12/2011 Inactive Prevacid 30 mg Cap RxNorm: 058630 1 Capsule(s) PO QD 04/13/201110/11 Inactive Spiriva with HandiHaler 18 mcg & inhalation Caps RxNorm: 580 261 Capsule(s) INH INHALE CONTENTS OF 1 CAPSULE(S) WITH HANDIHALER ONCE DAILY 04/13/2011 12/21/2011 Inactive metformin ER 500 mg 24 hr Tab RxNorm: 850439 Tablet(s) PO TAKE ONE TABLET BY MOUTH EVERY DAY 04/13/2011 10/12/2011 Inactive Soma 350 mg Tab RxNorm: 226055 1 Tablet(s) PO QID 03/30/2011 02/13/20 19 Inactive fluoxetine 20 mg Cap RxNorm: 179324 Capsule(s) PO TAKE ONE CAPSULE BY MOUTH EVERY DAY 03/25/2011 10/12/2011 Inactive cefdinir 300 mg Cap RxNorm: 922220 2 Capsule(s) PO QD 03/19/201105/2011 Inactive 16.2 mg-0.1037 mg-0.0194 mg Tab RxNorm: 4442134 2 Tablet(s) PO TID PRN for gas and cramping 03/16/2011 07/13/2011 Inactive Soma 350 mg Tab RxNorm: 697631 2 Tablet(s) PO TID 03/16/2011 03/29/20 11 Inactive Chantix Starting Month Aníbal 0.5 mg (11)-1 mg (3x14) Tab s in a Dose Pack RxNorm: 013050 Tablet(s) PO as directed 03/02/2011 No Stop Date Active diazepam 10 mg Tab RxNorm: 900989 1 Tablet(s) PO BID 02/10/201101/19 Inactive Zofran 4 mg tablet RxNorm: 257663 1 Tablet(s) PO Q4H prn nausea 02/16/2011 Inactive Diflucan 100 mg Tab RxNorm: 940624 1 Tablet(s) PO QD 01/18/201101/24 Inactive Premarin 0.625 mg/g Vaginal Cream RxNorm: 752586 VAG In sert 1gm vaginally at bedtime 3 times weekly 01/18/2011 02/12/2019 Inactive loratadine 10 mg Tab RxNorm: 582808 1 Tablet(s) PO QD 12/17/201003/2012 Inactive Spiriva with HandiHaler 18 mcg & inhalation Caps RxNorm: 580 261 1 Capsule(s) INH QD 12/17/2010 04/12/2011 Inactive Diflucan 100 mg Tab RxNorm: 799931 1 Tablet(s) PO QD 12/17/201012/23 Inactive diazepam 10 mg Tab RxNorm: 376253 1 Tablet(s) PO BID and PRN 201002/12/2019 Inactive One Touch Ultra Test Strips RxNorm: InVt BID Zainab t blood sugar at least twice daily. 11/11/2010 06/11/2011 Inactive fluoxetine 40 mg Cap RxNorm: 097993 1 Capsule(s) PO QAM 11/11/2010 Inactive diazepam 10 mg Tab RxNorm: 507269 1 Tablet(s) PO BID and PRN 200911/12/2010 Inactive Bactrim DS 800 mg-160 mg Tab RxNorm: 649381 1 Tablet(s) PO BID 09/2210/15/2010 Inactive fluoxetine 20 mg Cap RxNorm: 566055 1 Capsule(s) PO QD 10/02/201008/2011 Inactive Bactrim DS 800 mg-160 mg Tab RxNorm: 720389 1 Tablet(s) PO BID 01/201010/03/2010 Inactive Zofran 4 mg Tab RxNorm: 002330 1 Tablet(s) PO Q4H prn nausea 200910/16/2010 Inactive 16.2 mg-0.1037 mg-0.0194 mg Tab RxNorm: 4693304 2 Tablet(s) PO TID PRN for gas and cramping 09/17/2010 10/21/2010 Inactive Gabapentin 800 mg Tab RxNorm: 710593 1 Tablet(s) PO QD 09/16/2010 Inactive ProAir HFA 90 mcg/Actuation Aerosol Inhaler RxNorm: 0941385 2 Puff(s) INH Q4H prn shortness of breath 09/15/2010 12/13/2010 Inactive gabapentin 800 mg Tab RxNorm: 953937 1 Tablet(s) PO QD 09/15/2010 Inactive Prevacid 30 mg Cap RxNorm: 490035 1 Capsule(s) PO QD 09/15/201004/12 Inactive loratadine 10 mg Tab RxNorm: 519042 1 Tablet(s) PO QD 09/15/201011/23 Inactive Premarin 0.9 mg Tab RxNorm: 992387 1 Tablet(s) PO QD 09/15/201004/12 Inactive Synthroid 112 mcg Tab RxNorm: 227284 1 Tablet(s) PO QD 09/15/2010 Inactive metformin ER 500 mg 24 hr Tab RxNorm: 943510 1 Tablet(s) PO QD 08/2304/12/2011 Inactive Symbicort 160 mcg-4.5 mcg/Actuation Inhalation HFA Aer osol Inhaler RxNorm: 1574137 2 Puff(s) INH BID 09/15/2010 04/12/2011 Inactive diazepam 10 mg Tab RxNorm: 574332 1 Tablet(s) PO BID and PRN 200910/13/2010 Inactive Phentermine 37.5 mg Cap RxNorm: 103735 1 Capsule(s) PO QD 09/02/2010 11/02/2011 Inactive ProAir HFA 90 mcg/Actuation Aerosol Inhaler RxNorm: 1773306 2 Puff(s) INH Q4H prn shortness of breath 08/07/2010 No Stop Date Active Premarin 0.9 mg Tab RxNorm: 679245 1 Tablet(s) PO QD 08/07/201009/14 Inactive Loratadine 10 mg Tab RxNorm: 741409 1 Tablet(s) PO QD 08/07/201008/23 Inactive Lactulose 10 gram/15 mL Oral Soln RxNorm: 192851 1 Unit Dose PO QD 08/07/2010 02/12/2019 Inactive Zofran 4 mg Tab RxNorm: 580562 1 Tablet(s) PO Q4H prn nausea 2009 No Stop Date Active Gabapentin 800 mg Tab RxNorm: 587122 1 Tablet(s) PO QD 08/07/2010 Inactive Synthroid 112 mcg Tab RxNorm: 380908 1 Tablet(s) PO QD 08/07/2010 Inactive Metformin ER 500 mg 24 hr Tab RxNorm: 915427 1 Tablet(s) PO QD 07/2309/14/2010 Inactive Vitamin D 1,000 unit Tab RxNorm: 487457 1 Tablet(s) PO TID 08/07/2002/12/2019 Inactive Symbicort 160 mcg-4.5 mcg/Actuation Inhalation HFA Aer osol Inhaler RxNorm: 5820670 2 Puff(s) INH BID 08/07/2010 09/14/2010 Inactive Prevacid 30 mg Cap RxNorm: 325996 1 Capsule(s) PO QD 08/07/201009/14 Inactive Metformin ER 500 mg 24 hr Tab RxNorm: 618925 1 Tablet(s) PO QD 06/2308/06/2010 Inactive Vitamin D 1,000 unit Tab RxNorm: 023658 1 Tablet(s) PO TID 07/14/2008/06/2010 Inactive Synthroid 112 mcg Tab RxNorm: 177762 1 Tablet(s) PO QD 07/14/2010 Inactive Lactulose 10 gram/15 mL Oral Soln RxNorm: 290392 1 Unit Dose PO QD 07/14/2010 08/06/2010 Inactive Levaquin 500 mg Tab RxNorm: 610287 1 Tablet(s) PO QD 07/14/201007/27 Inactive Premarin 0.9 mg Tab RxNorm: 178041 1 Tablet(s) PO QD 07/14/201008/06 Inactive ProAir HFA 90 mcg/Actuation Aerosol Inhaler RxNorm: 6537475 2 Puff(s) INH Q4H prn shortness of breath 07/14/2010 No Stop Date Active Prevacid 30 mg Cap RxNorm: 327058 1 Capsule(s) PO QD 07/14/201008/06 Inactive Zofran 4 mg Tab RxNorm: 707618 1 Tablet(s) PO Q4H prn nausea 2009 No Stop Date Active Symbicort 160 mcg-4.5 mcg/Actuation Inhalation HFA Aer osol Inhaler RxNorm: 7260522 2 Puff(s) INH BID 07/14/2010 08/06/2010 Inactive Loratadine 10 mg Tab RxNorm: 014431 1 Tablet(s) PO QD 07/14/201007/23 Inactive Gabapentin 800 mg Tab RxNorm: 580563 1 Tablet(s) PO QD 07/14/2010 Inactive Metformin ER 500 mg 24 hr Tab RxNorm: 508979 1 Tablet(s) PO 010 07/13/2010 Inactive Diazepam 10 mg Tab RxNorm: 770020 1 Tablet(s) PO BID and PRN 200909/06/2010 Inactive Premarin 0.9 mg Tab RxNorm: 264053 1 Tablet(s) PO QD 06/09/201007/13 Inactive Zofran 4 mg Tab RxNorm: 080002 1 Tablet(s) PO Q4H prn nausea 2009 No Stop Date Active ProAir HFA 90 mcg/Actuation Aerosol Inhaler RxNorm: 0103926 2 Puff(s) INH Q4H prn shortness of breath 06/09/2010 No Stop Date Active Gabapentin 800 mg Tab RxNorm: 500260 1 Tablet(s) PO QD 06/09/2010 Inactive Loratadine 10 mg Tab RxNorm: 859321 1 Tablet(s) PO QD 06/09/201006/23 Inactive Lactulose 10 gram/15 mL Oral Soln RxNorm: 270848 1 Unit Dose PO QD 06/09/2010 07/13/2010 Inactive Prevacid 30 mg Cap RxNorm: 243303 1 Capsule(s) PO QD 06/09/201007/13 Inactive Synthroid 112 mcg Tab RxNorm: 964021 1 Tablet(s) PO QD 06/09/2010 Inactive Symbicort 160 mcg-4.5 mcg/Actuation Inhalation HFA Aer osol Inhaler RxNorm: 0469126 2 Puff(s) INH BID 06/09/2010 07/13/2010 Inactive Omnicef 300 mg Cap RxNorm: 181657 2 Capsule(s) PO QD 05/07/201005/20 Inactive Metformin 500 mg Tab RxNorm: 445343 1 Tablet(s) PO QD 05/06/201005/22 Inactive ProAir HFA 90 mcg/Actuation Aerosol Inhaler RxNorm: 3237313 2 Puff(s) INH Q4H prn shortness of breath 05/06/2010 No Stop Date Active lactulose 10 gram/15 mL Oral Soln RxNorm: 126857 1 Unit Dose PO QD 05/06/2010 06/10/2011 Inactive Loratadine 10 mg Tab RxNorm: 726551 1 Tablet(s) PO QD 05/06/201005/22 Inactive Synthroid 112 mcg Tab RxNorm: 288773 1 Tablet(s) PO QD 05/06/2010 Inactive Symbicort 160 mcg-4.5 mcg/Actuation Inhalation HFA Aer osol Inhaler RxNorm: 1863478 2 Puff(s) INH BID 05/06/2010 06/08/2010 Inactive Gabapentin 800 mg Tab RxNorm: 366521 1 Tablet(s) PO QD 05/06/2010 Inactive 16.2 mg-0.1037 mg-0.0194 mg Tab RxNorm: 2121340 2 Tablet(s) PO TID PRN for gas and cramping 05/06/2010 05/12/2010 Inactive Zofran 4 mg Tab RxNorm: 468580 1 Tablet(s) PO Q4H prn nausea 200904/13/2010 Inactive MS Contin 60 mg Tab RxNorm: 339670 3 Tablet(s) PO BID 04/09/201004/22 Inactive Soma 350 mg Tab RxNorm: 410112 2 Tablet(s) PO TID 04/09/2010 05/08/20 10 Inactive Symbicort 160 mcg-4.5 mcg/Actuation Inhalation HFA Aer osol Inhaler RxNorm: 3582695 2 Puff(s) INH BID 04/08/2010 05/05/2010 Inactive Doxycycline 100 mg Cap RxNorm: 4975710 1 Capsule(s) PO BID 04/08/20 10 04/17/2010 Inactive Triamterene-Hydrochlorothiazide 37.5 mg-25 mg Cap RxNorm: 19 8316 1 Capsule(s) PO QAM 04/08/2010 09/04/2010 Inactive fluoxetine 40 mg Cap RxNorm: 205561 1 Capsule(s) PO QAM 04/08/2010 Inactive Morphine SR 120 mg multiphase 24 hr Cap RxNorm: 268369 1 Capsul e(s) PO 03/11/2010 04/07/2010 Inactive Endocet 10 mg-325 mg Tab RxNorm: 7911571 1-2 Tablet(s) PO Q4H OK N PAIN 03/11/2010 04/09/2010 Inactive Savella 100 mg Tab RxNorm: 768422 1 Tablet(s) PO BID 03/10/201004/09 Inactive Soma 350 mg Tab RxNorm: 333163 1 Tablet(s) PO TID prn spasm 010 04/09/2010 Inactive Savella 100 mg Tab RxNorm: 773633 1 Tablet(s) PO BID 02/03/201004/09 Inactive Aspirin 81 mg Tab RxNorm: 359412 1 Tablet(s) PO QD No Start Date Active Zyrtec 10 mg Tab RxNorm: 2721275 1 Tablet(s) PO QD No Start Date Active One Touch Ultra Test Strips RxNorm: Misc test at least t wice daily. No Start Date Active coenzyme Q10 200 mg capsule RxNorm: 567626 1 Capsule(s) PO QD No Star t Date Active One Touch Ultra Test Strips RxNorm: InVt BID Zainab t blood sugar at least twice daily. No Start Date 11/10/2010 Inactive Gabapentin 800 mg Tab RxNorm: 251729 1 Tablet(s) PO QD No Start Date 05/05/2010 Inactive Abilify 5 mg tablet RxNorm: 477444 1 Tablet(s) PO QD No Start Date Inactive Chantix 1 mg Tab RxNorm: 969071 1 Tablet(s) PO BID No Start Date 10/22 Inactive Ozempic 0.25 mg or 0.5 mg (2 mg/1.5 mL) subcutaneous p en injector RxNorm: 0329937 .25 Milligram(s) SQ QW No Start Date 07/04/2019 Inactive lancets 28 gauge RxNorm: Miscellaneous As needed for blo od glucose sticks No Start Date 08/23/2013 Inactive potassium chloride ER 20 mEq tablet,extended release RxNorm: 823336 2 Tablet(s) PO QD No Start Date 09/26/2018 Inactive Ventolin HFA 90 mcg/actuation Aerosol Inhaler RxNorm: 124100 1 2 Puff(s) INH Q4H prn No Start Date 01/17/2012 Inactive potassium chloride ER 20 mEq tablet,extended release RxNorm: 179139 2 Tablet(s) PO QD No Start Date 10/19/2018 Inactive Januvia 100 mg tablet RxNorm: 054246 1 Tablet(s) PO QD No Start Date 09/10/2015 Inactive Medrol (Aníbal) 4 mg Tabs in a Dose Pack RxNorm: 420000 Tablet(s) PO N o Start Date 08/09/2011 Inactive as directed Zithromax Z-Aníbal 250 mg Tab RxNorm: 159150 Tablet(s) PO No Start Date 01/25/2012 Inactive as directed vitamin B6-vitamin E-magnesium tablet RxNorm: 1 Tablet(s ) PO QHS with INH No Start Date 03/30/2018 Inactive prednisone 20 mg Tab RxNorm: 190844 1 Tablet(s) PO TID for 1wk then 1 po BID for 1wk No Start Date 01/25/2012 Inactive furosemide 40 mg tablet RxNorm: 248984 1 Tablet(s) PO QAM No Start Date 10/09/2018 Inactive Vitamin D3 1000 units Capsule RxNorm: 1 Capsule(s) PO TID No S tart Date 03/19/2015 Inactive Zofran 4 mg Tab RxNorm: 096451 1 Tablet(s) PO Q4H prn nausea No Sta rt Date 04/13/2010 Inactive Premarin 0.625 mg/g Vaginal Cream RxNorm: 303642 1 Gram (s) VAG QHS 3 times a week No Start Date 09/22/2017 Inactive oxycodone 10 mg tablet RxNorm: 3125759 1-2 Tablet(s) PO QID as n eeded for pain No Start Date 11/04/2015 Inactive Nicoderm CQ 21 mg/24 hr daily Patch RxNorm: 081108 1 Applicatio n TD QD No Start Date 08/05/2015 Inactive Topamax 50 mg tablet RxNorm: 694101 1/2 Tablet(s) PO QH S for 1wk then 1 po q HS for 1wk then 2 po q HS No Start Date 06/27/2012 Inactive Chantix Starting Month Aníbal 0.5 mg (11)-1 mg (3x14) Tab s in a Dose Pack RxNorm: 103938 Tablet(s) PO as directed No Start Date 03/01/2011 Inactive Trulicity 0.75 mg/0.5 mL subcutaneous pen injector RxNorm: 1 787552 Milliliter(s) SQ No Start Date 07/04/2019 Inactive Medrol (Aníbal) 4 mg Tabs in a Dose Pack RxNorm: 015859 Tablet(s) PO N o Start Date 01/25/2012 Inactive as directed Duragesic 100 mcg/hr Transderm Patch RxNorm: 861018 2 A pplication TD Q48H for pain No Start Date 09/05/2013 Inactive Premarin 0.9 mg Tab RxNorm: 130510 1 Tablet(s) PO QD No Start Date Inactive Zithromax Z-Aníbal 250 mg Tab RxNorm: 872027 Tablet(s) PO as direc chinmay No Start Date 01/25/2012 Inactive ondansetron 8 mg disintegrating tablet RxNorm: 281322 1 Tablet(s) PO Q6H as needed No Start Date 10/10/2018 Inactive oxycodone 15 mg tablet RxNorm: 0508012 1 Tablet(s) PO QID as nee ded for pain No Start Date 03/05/2019 Inactive ProAir HFA 90 mcg/Actuation Aerosol Inhaler RxNorm: 008344 2 Puff(s) INH Q4H prn for wheezing or shortness of breath No Start Date 12/21/2011 Inactive pravastatin 40 mg tablet RxNorm: 998402 1/2 Tablet(s) PO QOD No Sta rt Date 04/09/2015 Inactive ipratropium-albuterol 0.5 mg-3 mg(2.5 mg base)/3 mL ne bulization soln RxNorm: 0664202 1 Unit Dose INH Q4H as needed No Start Date 09/09/2016 Inactive furosemide 40 mg tablet RxNorm: 707091 1 Tablet(s) PO QAM as ne eded No Start Date 09/24/2019 Inactive Vitamin D2 oral RxNorm: 4018 oral No Start Date 03/18/2015 Inacti ve pravastatin 40 mg tablet RxNorm: 412370 1/2 Tablet(s) PO QD No Star t Date 04/09/2015 Inactive ondansetron HCl 4 mg tablet RxNorm: 551180 1 Tablet(s) PO Q4H as needed for nausea and vomiting No Start Date 04/07/2016 Inactive furosemide 40 mg tablet RxNorm: 274415 2 Tablet(s) PO QAM No Start Date 09/26/2018 Inactive gabapentin 800 mg tablet RxNorm: 408689 1/2 Tablet(s) PO BID No Sta rt Date 06/21/2017 Inactive gabapentin 800 mg tablet RxNorm: 471704 1/2 Tablet(s) PO BID No Sta rt Date 07/05/2017 Inactive ProAir HFA 90 mcg/Actuation Aerosol Inhaler RxNorm: 8463999 2 Puff(s) INH Q4H prn shortness of breath No Start Date 05/05/2010 Inactive scopolamine 1 mg over 3 days transdermal patch RxNorm: 37095 2 1 Application TD behind ear. Take off after three days No Start Date 10/10/2018 Inactive Metformin 500 mg Tab RxNorm: 879004 1 Tablet(s) PO QD No Start Date 0 05/05/2010 Inactive MS Contin 200 mg Tab RxNorm: 664767 1 Tablet(s) PO BID No Start Date 08/20/2011 Inactive Belladonna-Phenobarbital 48 mg tablet,extended release RxNor m: 2 Tablet(s) PO TID No Start Date 06/04/2016 Inactive Synthroid 112 mcg Tab RxNorm: 393895 1 Tablet(s) PO QD No Start Date 05/05/2010 Inactive Zegerid 40 mg-1.1 gram Cap RxNorm: 358841 1 Capsule(s) PO QD No Sta rt Date 01/25/2012 Inactive Premarin 0.625 mg/g Vaginal Cream RxNorm: 844061 VAG In sert 1gm vaginally at bedtime 3 times weekly No Start Date 01/17/2011 Inactive potassium chloride ER 20 mEq tablet,extended release RxNorm: 668518 1 Tablet(s) PO QD No Start Date 04/24/2019 Inactive methocarbamol 750 mg tablet RxNorm: 570029 2 Tablet(s) PO TID as needed for muscle spasm No Start Date 07/08/2014 Inactive Biaxin XL Aníbal 500 mg 24 hr Tab RxNorm: 807678 Tablet(s) PO as d irected No Start Date 04/24/2013 Inactive Vitamin D3 1,000 unit tablet RxNorm: 681753 3 Tablet(s) PO QD No St art Date 06/01/2017 Inactive Morphine SR 120 mg multiphase 24 hr Cap RxNorm: 927007 1 Capsul e(s) PO BID No Start Date 04/09/2010 Inactive Silvadene 1 % topical cream RxNorm: 370821 1 Application TOP BI D to burn area No Start Date 01/31/2017 Inactive Prednisone 20 mg Tab RxNorm: 344765 1 Tablet(s) PO TID for 3days then BID for 4days No Start Date 01/25/2012 Inactive gabapentin 600 mg tablet RxNorm: 033100 1 Tablet(s) PO BID No Start Date 01/21/2015 Inactive topiramate 50 mg tablet RxNorm: 376219 1 Tablet(s) PO QHS No Start Date 03/30/2018 Inactive Januvia 100 mg tablet RxNorm: 249221 1/2 Tablet(s) PO QD No Start D ate 12/25/2015 Inactive Diazepam 10 mg Tab RxNorm: 742831 1 Tablet(s) PO BID and PRN No Sta rt Date 06/08/2010 Inactive Medication Administered No Medication Administered data Immunizations Vaccine Codes Date Status Influenza CVX: 141 09/28/2012 Pneumovax Unknown 09/28/2012 Influenza (Adult) CVX: 141 09/02/2010 Results No Results data Procedures Procedure Codes Date THER/PROPH/DIAG INJ SC/IM CPT-4: 43678 07/10/2019 METHYLPREDNISOLONE INJECTION CPT-4: J2930 07/10/2019 URINALYSIS NONAUTO W/O SCOPE CPT-4: 45543 09/06/2018 URINE CULTURE/ COLONY COUNT CPT-4: 96364 09/06/2018 DRAIN/INJECT JOINT/BURSA CPT-4: 50645 04/29/2017 TRIAMCINOLONE ACET INJ NOS CPT-4: J3301 04/29/2017 DEXAMETHASONE SODIUM PHOS CPT-4: J1100 04/29/2017 INFLUENZA ASSAY W/OPTIC CPT-4: 10888 12/01/2016 RESPIRATORY CULTURE & STAIN CPT-4: 98067 07/09/2016 TB INTRADERMAL TEST CPT-4: 39621 04/21/2016 DRAIN/INJECT JOINT/BURSA CPT-4: 71992 11/07/2013 METHYLPREDNISOLONE 40 MG INJ CPT-4: J1030 11/07/2013 TRIAMCINOLONE ACET INJ NOS CPT-4: J3301 11/07/2013 DRAIN/INJECT JOINT/BURSA CPT-4: 82355 08/08/2013 METHYLPREDNISOLONE 40 MG INJ CPT-4: J1030 08/08/2013 TRIAMCINOLONE ACET INJ NOS CPT-4: J3301 08/08/2013 FLU VACCINE 3 YRS & > IM UP 64 CPT-4: 18842 2 PNEUMOCOCCAL VACC 23 ADITYA IM CPT-4: 91962 09/28/2012 IMMUNIZATION ADMIN CPT-4: 43632 09/28/2012 IMMUNIZATION ADMIN EACH ADD CPT-4: 46148 09/28/2012 FLU VACCINE 3 YRS & > IM UP 64 CPT-4: 03763 0 IMMUNIZATION ADMIN CPT-4: 36537 09/02/2010 METHYLPREDNISOLONE INJECTION CPT-4: J2930 05/07/2010 THER/PROPH/DIAG INJ SC/IM CPT-4: 98097 05/07/2010 Vital Signs Date Vital 11/29/2019 Blood [...] 1: 122/78 Code: 8480-6 BMI: 29.5 Code: 86428-6 Heart Rate 1: 76 bpm Height: 5'4" Respiratory Rate: 20 bpm SpO2: 96% Tempera ture: 37.0 (C) / 98.6 (F) Weight: 172 lbs 01/25/2019 Blood Pressure 1: 132/80 Code: 8480-6 BMI: 29.7 Code: 81571-5 Heart Rate 1: 84 bpm Height: 5'4" Respiratory Rate: 22 bpm SpO2: 98% Tempera ture: 36.9 (C) / 98.4 (F) Weight: 173 lbs 01/03/2019 Blood Pressure 1: 116/70 Code: 8480-6 BMI: 29.5 Code: 90005-8 Heart Rate 1: 92 bpm Height: 5'4" Respiratory Rate: 24 bpm SpO2: 98% Tempera ture: 37.2 (C) / 98.9 (F) Weight: 172 lbs 11/21/2018 Blood Pressure 1: 146/82 Code: 8480-6 BMI: 28.2 Code: 02710-1 Heart Rate 1: 88 bpm Height: 5'4" Respiratory Rate: 22 bpm SpO2: 97% Tempera ture: 36.9 (C) / 98.4 (F) Weight: 164 lbs 10/27/2018 Blood Pressure 1: 122/70 Code: 8480-6 BMI: 27.6 Code: 00143-9 Heart Rate 1: 88 bpm Height: 5'4" Respiratory Rate: 20 bpm SpO2: 96% Tempera ture: 36.8 (C) / 98.3 (F) Weight: 161 lbs 10/18/2018 Blood Pressure 1: 126/70 Code: 8480-6 BMI: 28.3 Code: 59625-9 Heart Rate 1: 76 bpm Height: 5'4" Respiratory Rate: 20 bpm SpO2: 95% Tempera ture: 37.0 (C) / 98.6 (F) Weight: 165 lbs 09/27/2018 Blood Pressure 1: 124/78 Code: 8480-6 BMI: 27.1 Code: 30228-3 Heart Rate 1: 88 bpm Height: 5'4" Respiratory Rate: 20 bpm SpO2: 98% Tempera ture: 36.4 (C) / 97.6 (F) Weight: 158 lbs 09/14/2018 Blood Pressure 1: 140/72 Code: 8480-6 BMI: 26.1 Code: 99669-9 Heart Rate 1: 100 bpm Height: 5'4" Respiratory Rate: 20 bpm SpO2: 97% Tempera ture: 36.9 (C) / 98.4 (F) Weight: 152 lbs 09/06/2018 Blood Pressure 1: 156/82 Code: 8480-6 BMI: 26.3 Code: 16213-0 Heart Rate 1: 100 bpm Height: 5'4" Respiratory Rate: 28 bpm SpO2: 95% Tempera ture: 37.2 (C) / 98.9 (F) Weight: 153 lbs 08/16/2018 Blood Pressure 1: 13078 Code: 8480-6 Heart Rate 1: 87 bpm Respiratory Rate: 24 bpm SpO2: 94% Temperature: 36.9 (C) / 98.4 (F) We ight: 147 lbs 8 oz 07/07/2018 Blood Pressure 1: 116/78 Code: 8480-6 BMI: 22.7 Code: 04070-7 Heart Rate 1: 88 bpm Height: 5'4" Respiratory Rate: 22 bpm SpO2: 98% Tempera ture: 36.5 (C) / 97.7 (F) Weight: 132 lbs 05/31/2018 Blood Pressure 1: 128/78 Code: 8480-6 BMI: 22.3 Code: 39445-6 Heart Rate 1: 92 bpm Height: 5'4" Respiratory Rate: 26 bpm SpO2: 94% Tempera ture: 36.7 (C) / 98.1 (F) Weight: 130 lbs 03/31/2018 Blood Pressure 1: 136/78 Code: 8480-6 BMI: 21.5 Code: 93090-7 Heart Rate 1: 76 bpm Height: 5'4" Respiratory Rate: 24 bpm SpO2: 95% Tempera ture: 36.8 (C) / 98.3 (F) Weight: 125 lbs 01/26/2018 Blood Pressure 1: 142/64 Code: 8480-6 BMI: 20.6 Code: 37423-0 Heart Rate 1: 90 bpm Height: 5'4" Respiratory Rate: 24 bpm SpO2: 92% Tempera ture: 36.3 (C) / 97.3 (F) Weight: 120 lbs 10/26/2017 Blood Pressure 1: 124/70 Code: 8480-6 BMI: 20.3 Code: 65348-3 Heart Rate 1: 76 bpm Height: 5'4" Respiratory Rate: 22 bpm SpO2: 94% Tempera ture: 36.7 (C) / 98.1 (F) Weight: 118 lbs 09/23/2017 Blood Pressure 1: 106/70 Code: 8480-6 BMI: 19.2 Code: 06577-0 Heart Rate 1: 76 bpm Height: 5'4" Respiratory Rate: 20 bpm SpO2: 94% Tempera ture: 36.8 (C) / 98.3 (F) Weight: 112 lbs 08/12/2017 Blood Pressure 1: 116/68 Code: 8480-6 BMI: 20.1 Code: 06763-6 Heart Rate 1: 80 bpm Height: 5'4" Respiratory Rate: 22 bpm SpO2: 95% Tempera ture: 36.8 (C) / 98.2 (F) Weight: 117 lbs 07/06/2017 Blood Pressure 1: 136/78 Code: 8480-6 BMI: 20.6 Code: 38837-3 Heart Rate 1: 76 bpm Height: 5'4" Respiratory Rate: 24 bpm SpO2: 96% Tempera ture: 36.8 (C) / 98.2 (F) Weight: 120 lbs 06/02/2017 Blood Pressure 1: 112/70 Code: 8480-6 Heart Rate 1: 92 bpm Height: 5'4" Respiratory Rate: 24 bpm SpO2: 95% Temperature: 37.0 (C) / 98.6 (F) Weight: 04/29/2017 Blood Pressure 1: 94/52 Code: 8480-6 BMI: 19.6 C ode: 17695-8 Heart Rate 1: 84 bpm Height: 5'4" [...] 92/58 Code: 8480-6 BMI: 19.2 C ode: 86066-5 Heart Rate 1: 84 bpm Height: 5'4" Respiratory Rate: 26 bpm SpO2: 95% Tempera ture: 36.7 (C) / 98.0 (F) Weight: 112 lbs 12/01/2016 Blood Pressure 1: 114/70 Code: 8480-6 BMI: 19.2 Code: 98523-1 Heart Rate 1: 96 bpm Height: 5'4" Respiratory Rate: 28 bpm SpO2: 93% Tempera ture: 38.3 (C) / 101.0 (F) Weight: 112 lbs 10/27/2016 Blood Pressure 1: 126/66 Code: 8480-6 BMI: 19.6 Code: 12553-7 Heart Rate 1: 92 bpm Height: 5'4" Respiratory Rate: 28 bpm SpO2: 90% Tempera ture: 36.8 (C) / 98.3 (F) Weight: 114 lbs 09/09/2016 Blood Pressure 1: 126/74 Code: 8480-6 Heart Rate 1: 104 bpm Height: 5'4" Respiratory Rate: 32 bpm SpO2: 88% Temperature: 37 .2 (C) / 99.0 (F) 08/26/2016 Blood Pressure 1: 134/82 Code: 8480-6 BMI: 22.0 Code: 10702-2 Heart Rate 1: 84 bpm Height: 5'4" Respiratory Rate: 24 bpm SpO2: 94% Tempera ture: 36.8 (C) / 98.3 (F) Weight: 128 lbs 05/21/2016 Blood Pressure 1: 142/80 Code: 8480-6 BMI: 21.6 Code: 11706-8 Heart Rate 1: 104 bpm Height: 5'4" Respiratory Rate: 22 bpm SpO2: 93% Tempera ture: 36.0 (C) / 96.8 (F) Weight: 126 lbs 03/25/2016 Blood Pressure 1: 126/62 Code: 8480-6 Heart Rate 1: 88 bpm Respiratory Rate: 20 bpm SpO2: 92% Temperature: 36.8 (C) / 98.3 (F) We ight: 130 lbs 01/23/2016 Blood Pressure 1: 146/82 Code: 8480-6 BMI: 24.1 Code: 79355-9 Heart Rate 1: 92 bpm Height: 5'3" Respiratory Rate: 22 bpm Temperature: 37 .1 (C) / 98.8 (F) Weight: 136 lbs 12/26/2015 Blood Pressure 1: 142/78 Code: 8480-6 BMI: 24.6 Code: 96240-8 Heart Rate 1: 78 bpm Height: 5'3" Respiratory Rate: 20 bpm Temperature: 36 .7 (C) / 98.1 (F) Weight: 139 lbs 12/03/2015 Blood Pressure 1: 126/60 Code: 8480-6 BMI: 24.6 Code: 62409-8 Heart Rate 1: 100 bpm Height: 5'3" Respiratory Rate: 28 bpm Temperature: 37 .6 (C) / 99.6 (F) Weight: 139 lbs 09/10/2015 Blood Pressure 1: 124/64 Code: 8480-6 BMI: 23.7 Code: 69523-5 Heart Rate 1: 88 bpm Height: 5'3" Respiratory Rate: 24 bpm SpO2: 95% Tempera ture: 36.4 (C) / 97.6 (F) Weight: 134 lbs 08/06/2015 Blood Pressure 1: 114/76 Code: 8480-6 BMI: 23.2 Code: 71729-0 Heart Rate 1: 88 bpm Height: 5'3" Respiratory Rate: 22 bpm Temperature: 36 .6 (C) / 97.9 (F) Weight: 131 lbs 07/18/2015 Blood Pressure 1: 144/78 Code: 8480-6 BMI: 23.7 Code: 17529-7 Heart Rate 1: 84 bpm Height: 5'3" Respiratory Rate: 20 bpm Temperature: 37 .2 (C) / 99.0 (F) Weight: 134 lbs 04/10/2015 Blood Pressure 1: 110/64 Code: 8480-6 Heart Rate 1: 80 bpm Height: Respiratory Rate: 20 bpm Temperature: 37.1 (C) / 98.8 (F) Weight: 03/05/2015 Blood Pressure 1: 136/80 Code: 8480-6 BMI: 23.9 Code: 99034-9 Heart Rate 1: 76 bpm Height: 5'3" Respiratory Rate: 24 bpm Temperature: 37 .0 (C) / 98.6 (F) Weight: 135 lbs 01/30/2015 Blood Pressure 1: 142/80 Code: 8480-6 BMI: 23.0 Code: 12380-5 Heart Rate 1: 96 bpm Height: 5'3" Respiratory Rate: 22 bpm Temperature: 36 .2 (C) / 97.2 (F) Weight: 130 lbs 01/02/2015 Blood Pressure 1: 124/70 Code: 8480-6 BMI: 23.4 Code: 24412-8 Heart Rate 1: 84 bpm Height: 5'3" Respiratory Rate: 24 bpm SpO2: 95% Tempera ture: 36.9 (C) / 98.5 (F) Weight: 132 lbs 10/03/2014 Blood Pressure 1: 106/68 Code: 8480-6 BMI: 22.5 Code: 56303-1 Heart Rate 1: 88 bpm Height: 5'3" Respiratory Rate: 24 bpm Temperature: 37 .0 (C) / 98.6 (F) Weight: 127 lbs 08/27/2014 Blood Pressure 1: 124/68 Code: 8480-6 BMI: 21.1 Code: 19240-7 Heart Rate 1: 88 bpm Height: 5'3" [...] 1: 120/70 Code: 8480-6 BMI: 19.2 Code: 55076-8 Heart Rate 1: 70 bpm Height: 5'4" Respiratory Rate: 20 bpm Temperature: 36 .9 (C) / 98.4 (F) Weight: 112 lbs 06/28/2013 Blood Pressure 1: 102/ Code: 8480-6 BMI: 19.6 Code: 11037-0 Heart Rate 1: 76 bpm Height: 5'4" Respiratory Rate: 20 bpm Temperature: 36 .8 (C) / 98.2 (F) Weight: 114 lbs 05/31/2013 Blood Pressure 1: 106/ Code: 8480-6 BMI: 18.9 Code: 90879-7 Heart Rate 1: 100 bpm Height: 5'4" Respiratory Rate: 20 bpm Temperature: 36 .4 (C) / 97.6 (F) Weight: 110 lbs 05/03/2013 Blood Pressure 1: 126/70 Code: 8480-6 BMI: 19.1 Code: 64498-3 Heart Rate 1: 88 bpm Height: 5'4" Respiratory Rate: 20 bpm Temperature: 37 .1 (C) / 98.8 (F) Weight: 111 lbs 04/25/2013 Blood Pressure 1: 114/ Code: 8480-6 BMI: 19.4 Code: 71422-4 Heart Rate 1: 92 bpm Height: 5'4" Respiratory Rate: 24 bpm SpO2: 96% Tempera ture: 37.7 (C) / 99.8 (F) Weight: 113 lbs 03/08/2013 Blood Pressure 1: 94/68 Code: 8480-6 BMI: 21.3 C ode: 35772-6 Heart Rate 1: 88 bpm Height: 5'4" Respiratory Rate: 24 bpm Temperature: 37 .0 (C) / 98.6 (F) Weight: 124 lbs 02/07/2013 Blood Pressure 1: 106/64 Code: 8480-6 BMI: 21.8 Code: 48534-0 Heart Rate 1: 84 bpm Height: 5'4" Respiratory Rate: 22 bpm Temperature: 36 .8 (C) / 98.2 (F) Weight: 127 lbs 01/10/2013 Blood Pressure 1: 122/68 Code: 8480-6 BMI: 21.6 Code: 34450-1 Heart Rate 1: 94 bpm Height: 5'4" SpO2: 94% Temperature: 36.7 (C) / 98.1 (F) Weight: 126 lbs 09/28/2012 Blood Pressure 1: 124/78 Code: 8480-6 BMI: 24.9 Code: 60470-4 Heart Rate 1: 92 bpm Height: 5'4" Respiratory Rate: 20 bpm Temperature: 36 .7 (C) / 98.1 (F) Weight: 145 lbs 06/28/2012 Blood Pressure 1: 134/80 Code: 8480-6 BMI: 24.9 Code: 10932-4 Heart Rate 1: 76 bpm Height: 5'4" Respiratory Rate: 20 bpm Temperature: 36 .8 (C) / 98.2 (F) Weight: 145 lbs 05/03/2012 Blood Pressure 1: 108/62 Code: 8480-6 BMI: 25.6 Code: 26078-3 Heart Rate 1: 88 bpm Height: 5'4" Temperature: 36.2 (C) / 97.2 (F) Weight: 149 lbs 03/01/2012 Blood Pressure 1: 124/66 Code: 8480-6 BMI: 25.1 Code: 35509-8 Heart Rate 1: 76 bpm Height: 5'4" Respiratory Rate: 20 bpm Temperature: 36 .6 (C) / 97.9 (F) Weight: 146 lbs 01/26/2012 Blood Pressure 1: 118/82 Code: 8480-6 BMI: 25.1 Code: 84871-2 Heart Rate 1: 74 bpm Height: 5'4" Temperature: 36.8 (C) / 98.2 (F) Weight: 146 lbs 11/03/2011 Blood Pressure 1: 126/80 Code: 8480-6 BMI: 27.3 Code: 37680-0 Heart Rate 1: 72 bpm Height: 5'4" [...] Notes follow up 11/29/2019 Discuss pneumonia [facility] [...] prozac Encounters Encounter Performer Location Codes Date ([id number]) OFFICE/OUTPATIENT VISIT EST Diagnosis: Chronic pain syndrome[ICD10: G89.4] Diagnosis: Localized edema[ICD10: R60.0] Diagnosis: Chronic obstructive pulmonary disease, unspecified[ICD10: J44.9] Diagnosis: Other fatigue[ICD10: R53.83] Diagnosis: Muscle weakness (generalized)[ICD10: M62.81] Diagnosis: Spinal stenosis, lumbar region with neurogenic claudication[ICD10: M48.062] Vika RENTERIA DO [facility] CPT-4: 48945 11/29/2019 ([id number]) OFFICE/OUTPATIENT VISIT EST Diagnosis: Chronic pain syndrome[ICD10: G89.4] Diagnosis: Lumbar degenerative disc disease[ICD10: M51.36] Diagnosis: Muscle spasm[ICD10: M62.838] Diagnosis: Spinal stenosis, lumbar region with neurogenic claudication[ICD10: M48.062] Diagnosis: Spondylosis without myelopathy or radiculopathy, 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] Vika RENTERIA DO [facility] CPT-4: 63070 10/30/2019 ([id number]) OFFICE/OUTPATIENT VISIT EST Diagnosis: Chronic pain syndrome[ICD10: G89.4] Vika RENTERIA DO [facility] CPT-4: 12872 10/25/2019 ([id number]) OFFICE/OUTPATIENT VISIT EST Diagnosis: Epigastric pain[ICD10: R10.13] Diagnosis: Nausea[ICD10: R11.0] Diagnosis: Chronic obstructive pulmonary disease, unspecified[ICD10: J44.9] Vika RENTERIA [facility] CPT-4: 79964 07/26/2019 ([id number]) OFFICE/OUTPATIENT VISIT EST Diagnosis: Chronic obstructive pulmonary disease with (acute) exacerbation[ICD10: J44.1] Diagnosis: Chronic respiratory failure with hypoxia[ICD10: J96.11] Diagnosis: Other fatigue[ICD10: R53.83] Diagnosis: Edema, unspecified[ICD10: R60.9] Vika RENTERIA [employer] [facility] CPT-4: 07129 07/19/2019 ([id number]) OFFICE/OUTPATIENT VISIT EST Diagnosis: Chronic obstructive pulmonary disease with acute lower respiratory infection[ICD10: J44.0] Vika RENTERIA [facility] CPT-4: 57673 07/10/2019 ([id number]) OFFICE/OUTPATIENT VISIT EST Diagnosis: Type 2 diabetes mellitus with hyperglycemia[ICD10: E11.65] Diagnosis: Other infective otitis externa, left ear[ICD10: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
--- OUTSIDE RECORDS SUMMARY | 2020-04-24 23:19 | XMS REPORT | CCD ---
Author Author Yana Renteria D.O. Organization [facility] Address [address] [place] [address] Phone Care Team Providers Care Workers Compensation Manager Name Role Phone Vika Renteria D.O., PP Unavailable CCM Unavailable Summary Purpose Interface Exchange Insurance Providers Payer name Policy type / Coverage type Covered republican ID Effective Begin Date Effective End Date [employer] [facility] [place] Medicaid [id number] 2018 U nknown Family History Family History data not found Social History Social History Element Codes Description Effective Dates Marital status Unknown 06/28/[address]: [id number] Currently smokes tobacco 05/2013 Allergies, Adverse Reactions, [...] Fill Instructions furosemide 40 mg tablet RxNorm: 911877 TAKE ONE TABLET BY MOUTH EVERY MORNING NEEDED 12/20/2019 No Stop Date Active levothyroxine 25 mcg tablet RxNorm: 609280 TAKE ONE TAB LET BY MOUTH EVERY MORNING 12/20/2019 No Stop Date Active MS Contin 200 mg tablet,extended release RxNorm: 588327 1 Tablet(s) Oral two times a day 12/05/2019 01/04/2020 Active Medrol (Aníbal) 4 mg tablets in a dose pack RxNorm: 399622 6 Tablet(s) Oral QD --then as directed 11/30/2019 12/05/2019 Inactive MS Contin 200 mg tablet,extended release RxNorm: 999688 1 Tablet(s) Oral two times a day 11/29/2019 12/04/2019 Inactive cyclobenzaprine 10 mg tablet RxNorm: 290375 TAKE ONE TA BLET BY MOUTH THREE TIMES A DAY NEEDED 11/21/2019 No Stop Date Active MS Contin 200 mg tablet,extended release RxNorm: 225799 1 Tablet(s) Oral two times a day replaces 100mg dose 11/03/2019 11/02/2019 Inactive MS Contin 200 mg tablet,extended release RxNorm: 363844 1 Tablet(s) Oral two times a day replaces 100mg dose 11/03/2019 11/29/2019 Inactive ferrous sulfate 325 mg (65 mg iron) tablet RxNorm: 650249 1 Tab let(s) Oral QD 10/30/2019 No Stop Date Active MS Contin 100 mg tablet,extended release RxNorm: 946871 1 Table t(s) Oral QD 10/30/2019 10/29/2019 Inactive MS Contin 100 mg tablet,extended release RxNorm: 661439 1 Table t(s) Oral QD 10/30/2019 11/02/2019 Inactive Relistor 150 mg tablet RxNorm: 4099570 TAKE THREE TABLETS BY BENOIT TH DAILY 10/25/2019 No Stop Date Active pantoprazole 40 mg tablet,delayed release RxNorm: 141701 1 Tabl et(s) Oral QD 10/25/2019 No Stop Date Active metformin 500 mg tablet RxNorm: 094354 1 Tablet(s) Oral QD 10/25/20 No Stop Date Active Minipress 2 mg capsule RxNorm: 348437 1 Capsule(s) Oral QAM and 3 at bedtime 10/25/2019 No Stop Date Active Lancets, Super Thin RxNorm: 1 Unit Dose Miscellaneous QD 9 11/27/2020 Active Cymbalta 60 mg capsule,delayed release RxNorm: 188023 1 Capsule (s) Oral QAM 10/25/2019 No Stop Date Active Cymbalta 30 mg capsule,delayed release RxNorm: 825156 1 Capsule (s) Oral QAM 10/25/2019 No Stop Date Active oxycodone 15 mg tablet RxNorm: 1261308 1 Tablet(s) Oral four times a day as needed for pain 10/25/2019 11/28/2019 Inactive levothyroxine 25 mcg tablet RxNorm: 621521 1 Tablet(s) Oral QAM 02/201912/19/2019 Inactive levothyroxine 25 mcg tablet RxNorm: 643028 1 Tablet(s) Oral QAM 02/201910/24/2019 Inactive MS Contin 100 mg tablet,extended release RxNorm: 537955 1 Tablet(s) Oral two times a day replaces fentanyl 10/25/2019 10/25/2019 Inactive Premarin 0.45 mg tablet RxNorm: 617444 TAKE ONE TABLET BY MOUTH DAILY 10/24/2019 No Stop Date Active Duragesic 100 mcg/hr transdermal patch RxNorm: 832366 2 Application TD Q48H for pain 10/18/2019 10/24/2019 Inactive gabapentin 300 mg capsule RxNorm: 772460 TAKE ONE CAPSULE BY MO UTH TWICE A DAY 10/16/2019 No Stop Date Active cyclobenzaprine 10 mg tablet RxNorm: 894280 TAKE ONE TA BLET BY MOUTH THREE TIMES A DAY NEEDED 09/27/2019 11/20/2019 Inactive ProAir HFA 90 mcg/actuation aerosol inhaler RxNorm: 130086 INHALE ONE PUFF BY MOUTH EVERY 4 HOURS FOR WHEEZING OR FOR SHORTNESS OF BREATH 09/25/2019 No Stop Date Active Relistor 150 mg tablet RxNorm: 1798140 TAKE THREE TABLETS BY BENOIT TH DAILY 09/25/2019 10/24/2019 Inactive furosemide 40 mg tablet RxNorm: 160761 1 Tablet(s) Oral QAM as needed 09/25/2019 09/25/2019 Inactive oxycodone 15 mg tablet RxNorm: 1439157 1 Tablet(s) PO QID as nee ded for pain 09/21/2019 10/24/2019 Inactive Duragesic 100 mcg/hr transdermal patch RxNorm: 173896 2 Application TD Q48H for pain 09/19/2019 10/17/2019 Inactive Daliresp 500 mcg tablet RxNorm: 3713114 1 Tablet(s) Oral QD 019 03/08/2020 Active potassium chloride ER 20 mEq tablet,extended release RxNorm: 523229 TAKE ONE TABLET BY MOUTH DAILY 07/25/2019 01/20/2020 Active Relistor 150 mg tablet RxNorm: 1667290 TAKE THREE TABLETS BY BENOIT TH DAILY 07/25/2019 07/30/2019 Inactive cyclobenzaprine 10 mg tablet RxNorm: 514816 TAKE ONE TA BLET BY MOUTH THREE TIMES A DAY NEEDED 07/25/2019 09/22/2019 Inactive fluoxetine 40 mg capsule RxNorm: 153358 TAKE ONE CAPSULE BY BENOIT TH EVERY MORNING 07/11/2019 10/24/2019 Inactive Medrol (Aníbal) 4 mg tablets in a dose pack RxNorm: 926565 6 Tablet(s) PO QD --then as directed 07/10/2019 07/15/2019 Inactive omeprazole 40 mg capsule,delayed release RxNorm: 573429 1 Capsule(s) PO QD for stomach TAKE ONE CAPSULE BY MOUTH DAILY 07/10/2019 10/24/2019 Inactive Augmentin 875 mg-125 mg tablet RxNorm: 080104 1 Tablet(s) PO BID 07/16/2019 Inactive Trulicity 0.75 mg/0.5 mL subcutaneous pen injector RxNorm: 1 269475 0.75 Milliliter(s) SQ weekly 07/05/2019 10/24/2019 Inactive Compazine 10 mg tablet RxNorm: 459995 TAKE ONE TABLET B Y MOUTH FOUR TIMES A DAY NEEDED FOR NAUSEA 06/20/2019 07/19/2019 Inactive ProAir HFA 90 mcg/actuation aerosol inhaler RxNorm: 483148 INHALE ONE PUFF BY MOUTH EVERY 4 HOURS FOR WHEEZING OR FOR SHORTNESS OF BREATH 06/20/2019 06/23/2019 Inactive Daliresp 500 mcg tablet RxNorm: 3228727 TAKE ONE TABLET BY MOUTH DAILY 06/12/2019 09/10/2019 Inactive cttvqwfo-yluzlevib-aaugtctpf 3.5 mg/mL-10,000 unit/mL- 1 % ear solution RxNorm: 434923 4 Drop(s) otic (ear) TID to left ear 06/05/2019 10/24/2019 Inac tive furosemide 40 mg tablet RxNorm: 520154 TAKE ONE TABLET BY MOUTH EVERY MORNING 05/26/2019 07/09/2019 Inactive Duragesic 100 mcg/hr transdermal patch RxNorm: 120559 2 Application TD Q48H for pain 05/16/2019 06/14/2019 Inactive oxycodone 15 mg tablet RxNorm: 8147810 1 Tablet(s) PO QID as nee ded for pain 05/10/2019 09/20/2019 Inactive doxycycline hyclate 100 mg capsule RxNorm: 1210151 1 Capsule(s) PO BID 05/03/2019 05/12/2019 Inactive prednisone 20 mg tablet RxNorm: 933531 1 Tablet(s) PO T ID for 3 days then 1 po BID for 3 days then one daily for 3 days 05/03/2019 07/11/2019 Inactiv e Ozempic 0.25 mg or 0.5 mg (2 mg/1.5 mL) subcutaneous p en injector RxNorm: 9858673 0.5 Milligram(s) SQ QW 05/03/2019 07/09/2019 Inactive fluconazole 100 mg tablet RxNorm: 218638 1 Tablet(s) PO QD 05/03/2005/07/2019 Inactive Premarin 0.45 mg tablet RxNorm: 836355 TAKE ONE TABLET BY MOUTH DAILY 05/03/2019 10/23/2019 Inactive potassium chloride ER 20 mEq tablet,extended release RxNorm: 152309 1 Tablet(s) PO QD 04/27/2019 07/25/2019 Inactive potassium chloride ER 20 mEq tablet,extended release RxNorm: 975064 1 Tablet(s) PO QD 04/25/2019 04/26/2019 Inactive Compazine 10 mg tablet RxNorm: 006877 1 Tablet(s) PO QID as nee ded for nausea 04/25/2019 05/04/2019 Inactive ProAir HFA 90 mcg/actuation aerosol inhaler RxNorm: 620443 INHALE ONE PUFF BY MOUTH EVERY 4 HOURS FOR WHEEZING OR FOR SHORTNESS OF BREATH 04/12/2019 06/10/2019 Inactive Medrol (Aníbal) 4 mg tablets in a dose pack RxNorm: 384039 6 Tablet(s) PO QD --then as directed 04/11/2019 04/16/2019 Inactive Symbicort 160 mcg-4.5 mcg/actuation HFA aerosol inhaler RxNo rm: 2108682 2 Puff(s) INH BID 04/10/2019 10/06/2019 Inactive levothyroxine 50 mcg tablet RxNorm: 502003 1 Tablet(s) PO QD 201810/24/2019 Inactive gabapentin 300 mg capsule RxNorm: 473766 1 Capsule(s) PO BID 201810/02/2019 Inactive Symbicort 160 mcg-4.5 mcg/actuation HFA aerosol inhaler RxNo rm: 3163348 2 Puff(s) INH BID 04/06/2019 04/09/2019 Inactive oxycodone 15 mg tablet RxNorm: 6430514 1 Tablet(s) PO QID as nee ded for pain 04/05/2019 05/09/2019 Inactive levothyroxine 50 mcg tablet RxNorm: 753665 1 Tablet(s) PO QD 201804/09/2019 Inactive furosemide 40 mg tablet RxNorm: 428486 TAKE ONE TABLET BY MOUTH EVERY MORNING 03/21/2019 04/19/2019 Inactive levothyroxine 50 mcg tablet RxNorm: 109076 TAKE ONE TABLET BY M OUTH DAILY 03/21/2019 03/27/2019 Inactive Duragesic 100 mcg/hr transdermal patch RxNorm: 869027 2 Application TD Q48H for pain 03/13/2019 04/11/2019 Inactive oxycodone 15 mg tablet RxNorm: 4447655 1 Tablet(s) PO QID as nee ded for pain 03/06/2019 04/04/2019 Inactive Relistor 150 mg tablet RxNorm: 0656936 3 Tablet(s) PO QD 02/28/2019 0 05/28/2019 Inactive cyclobenzaprine 10 mg tablet RxNorm: 004784 1 Tablet(s) PO TID as needed 02/28/2019 05/28/2019 Inactive phentermine 37.5 mg tablet RxNorm: 953286 1 Tablet(s) PO QAM 201803/15/2019 Inactive Duragesic 100 mcg/hr transdermal patch RxNorm: 694156 2 Application TD Q48H for pain 02/09/2019 03/10/2019 Inactive Daliresp 500 mcg tablet RxNorm: 6924871 TAKE ONE TABLET BY MOUTH DAILY 01/31/2019 05/30/2019 Inactive Premarin 0.45 mg tablet RxNorm: 327833 1 Tablet(s) PO QD 01/31/2019 0 04/30/2019 Inactive fluoxetine 40 mg capsule RxNorm: 453991 Capsule(s) TAKE ONE CAPSULE BY MOUTH EVERY MORNING 01/31/2019 04/30/2019 Inactive levothyroxine 50 mcg tablet RxNorm: 482677 1 Tablet(s) PO QD 201804/10/2019 Inactive follow up in 3 weeks levothyroxine 50 mcg tablet RxNorm: 117170 1 Tablet(s) PO QD 201801/25/2019 Inactive follow up in 3 weeks potassium chloride ER 20 mEq tablet,extended release RxNorm: 290169 2 Tablet(s) PO BID 01/23/2019 02/14/2019 Inactive Synthroid 50 mcg tablet RxNorm: 123406 TAKE ONE TABLET BY MOUTH DAILY 01/16/2019 10/24/2019 Inactive potassium chloride ER 20 mEq tablet,extended release RxNorm: 441786 2 Tablet(s) PO BID 01/04/2019 01/22/2019 Inactive ProAir HFA 90 mcg/actuation aerosol inhaler RxNorm: 404303 INHALE ONE PUFF BY MOUTH EVERY 4 HOURS FOR WHEEZING OR SHORTNESS OF BREATH 01/04/201902/20 Inactive Request already responded to by other me ans (e.g. phone or fax) ProAir HFA 90 mcg/actuation aerosol inhaler RxNorm: 2963491 INHALE ONE PUFF BY MOUTH EVERY 4 HOURS FOR WHEEZING OR SHORTNESS OF BREATH 01/02/201912/23 Inactive gabapentin 300 mg capsule RxNorm: 599658 TAKE ONE CAPSULE BY MO UTH TWICE A DAY 12/30/2018 04/06/2019 Inactive furosemide 40 mg tablet RxNorm: 479577 1 Tablet(s) PO QAM 12/26/2018 02/23/2019 Inactive Compazine 10 mg tablet RxNorm: 709893 1 Tablet(s) PO QID as nee ded for nausea 12/07/2018 12/16/2018 Inactive metolazone 2.5 mg tablet RxNorm: 061845 TAKE ONE TABLET BY MOUT H EVERY MORNING 12/05/2018 01/03/2019 Inactive metformin ER 500 mg tablet,extended release 24 hr RxNorm: 86 0975 TAKE ONE TABLET BY MOUTH DAILY 12/05/2018 04/10/2019 Inactive Synthroid 50 mcg tablet RxNorm: 229157 1 Tablet(s) PO QD 11/25/2018 0 01/03/2019 Inactive DC any other synthroid strengths. Should be 50mcg only cyclobenzaprine 10 mg tablet RxNorm: 355171 TAKE ONE TA BLET BY MOUTH THREE TIMES A DAY NEEDED 11/09/2018 02/06/2019 Inactive metolazone 2.5 mg tablet RxNorm: 392230 1 Tablet(s) PO QAM repl aces 5mg dose 11/02/2018 12/01/2018 Inactive potassium chloride ER 20 mEq tablet,extended release RxNorm: 106918 2 Tablet(s) PO QD 2018 01/02/2019 Inactive Compazine 10 mg tablet RxNorm: 307136 1 Tablet(s) PO QID as nee ded for nausea 10/18/2018 12/07/2018 Inactive furosemide 40 mg tablet RxNorm: 085736 1 Tablet(s) PO QAM 10/12/2018 12/10/2018 Inactive ondansetron 8 mg disintegrating tablet RxNorm: 644655 1 Tablet(s) PO Q6H as needed 10/11/2018 10/17/2018 Inactive scopolamine 1 mg over 3 days transdermal patch RxNorm: 03968 2 1 Application TD behind ear. Take off after three days 10/11/2018 01/02/2019 Inactive furosemide 40 mg tablet RxNorm: 749283 1 Tablet(s) PO QAM 10/10/2018 12/26/2018 Inactive metolazone 5 mg tablet RxNorm: 673612 1 Tablet(s) PO QAM 10/06/2018 1 01/03/2018 Inactive metolazone 5 mg tablet RxNorm: 216379 1 Tablet(s) PO QAM 10/06/2018 1 12/05/2017 Inactive Xtampza ER 36 mg capsule sprinkle RxNorm: 5857566 1 Capsule(s) P O BID 10/05/2018 01/02/2019 Inactive Xtampza ER 36 mg capsule sprinkle RxNorm: 7867663 1 Capsule(s) P O BID 10/05/2018 02/12/2019 Inactive omeprazole 40 mg capsule,delayed release RxNorm: 597257 TAKE ONE CAPSULE BY MOUTH DAILY 10/03/2018 12/31/2018 Inactive Duragesic 100 mcg/hr transdermal patch RxNorm: 946708 2 Application TD Q48H for pain 09/30/2018 10/29/2018 Inactive Synthroid 50 mcg tablet RxNorm: 072229 1 Tablet(s) PO QD 09/29/2018 0 11/25/2018 Inactive DC any other synthroid strengths. Should be 50mcg only Synthroid 50 mcg tablet RxNorm: 540901 1 Tablet(s) PO QD 09/29/2018 1 11/28/2017 Inactive furosemide 40 mg tablet RxNorm: 325535 2 Tablet(s) PO Q AM for 1 week then every other day for 2 weeks 09/27/2018 10/12/2018 Inactive fluoxetine 40 mg capsule RxNorm: 202093 2 Capsule(s) PO QD 09/27/20 18 10/17/2018 Inactive potassium chloride ER 20 mEq tablet,extended release RxNorm: 438118 2 Tablet(s) PO QD for 1 week then every other day for 2 weeks 09/27/2018 2018 Inactive ProAir HFA 90 mcg/actuation aerosol inhaler RxNorm: 2654443 INHALE ONE PUFF BY MOUTH EVERY 4 HOURS FOR WHEEZING OR SHORTNESS OF BREATH 09/26/201811/23 Inactive Synthroid 75 mcg tablet RxNorm: 354020 1 Tablet(s) PO QD 09/09/2018 1 Inactive Synthroid 75 mcg tablet RxNorm: 515566 1 Tablet(s) PO QD 09/09/2018 1 11/28/2017 Inactive furosemide 40 mg tablet RxNorm: 077427 1 Tablet(s) PO QD 09/06/2018 1 Inactive potassium chloride ER 20 mEq tablet,extended release RxNorm: 979380 1 Tablet(s) PO QD 09/06/2018 09/19/2018 Inactive Duragesic 100 mcg/hr transdermal patch RxNorm: 368307 2 Application TD Q48H for pain 08/30/2018 09/28/2018 Inactive gabapentin 300 mg capsule RxNorm: 643155 TAKE ONE CAPSULE BY MO [facility] TWICE A DAY 08/23/2018 12/20/2018 Inactive Daliresp 500 mcg tablet RxNorm: 5144577 TAKE ONE TABLET BY MOUTH DAILY 08/23/2018 01/19/2019 Inactive Pulmicort 1 mg/2 mL suspension for nebulization RxNorm: 6168 19 USE ONE VIAL VIA NEBULIZER BY MOUTH TWICE A DAY 08/23/2018 07/11/2019 Inactive Synthroid 88 mcg tablet RxNorm: 006357 1 Tablet(s) PO QD 08/19/2018 1 Inactive Medrol (Aníbal) 4 mg tablets in a dose pack RxNorm: 670201 Tablet(s) PO take as directed 08/16/2018 09/05/2018 Inactive Relistor 150 mg tablet RxNorm: 6461665 3 Tablet(s) PO QD 08/16/2018 1 Inactive Zithromax Z-Aníbal 250 mg tablet RxNorm: 170278 Tablet(s) PO take as directed 08/16/2018 09/05/2018 Inactive cyclobenzaprine 10 mg tablet RxNorm: 803275 1 Tablet(s) PO TID as needed 08/16/2018 11/08/2018 Inactive Synthroid 88 mcg tablet RxNorm: 797233 1 Tablet(s) PO Q D NEEDS UPDATED LABS BEFORE FURTHER REFILLS 08/08/2018 08/19/2018 Inactive Premarin 0.45 mg tablet RxNorm: 776395 1 Tablet(s) PO QD 08/03/2018 0 01/31/2019 Inactive fluoxetine 20 mg capsule RxNorm: 885087 TAKE ONE CAPSULE BY BENOTI TH DAILY 08/03/2018 09/26/2018 Inactive Xtampza ER 36 mg capsule sprinkle RxNorm: 6330842 1 Capsule(s) P O BID 08/03/2018 09/01/2018 Inactive metformin ER 500 mg tablet,extended release 24 hr RxNorm: 86 0975 1 Tablet(s) PO QD 08/03/2018 10/31/2018 Inactive Symbicort 160 mcg-4.5 mcg/actuation HFA aerosol inhaler RxNo rm: 7575143 2 Puff(s) INH BID 08/03/2018 01/29/2019 Inactive Duragesic 100 mcg/hr transdermal patch RxNorm: 245153 2 Application TD Q48H for pain 07/29/2018 08/27/2018 Inactive ProAir HFA 90 mcg/actuation aerosol inhaler RxNorm: 980702 INHALE TWO PUFFS BY MOUTH EVERY 4 HOURS FOR WHEEZING OR SHORTNESS OF BREATH 07/27/201802/2018 Inactive Relistor 150 mg tablet RxNorm: 7426831 3 Tablet(s) PO QD 07/20/2018 0 08/15/2018 Inactive metformin ER 500 mg tablet,extended release 24 hr RxNorm: 86 0975 TAKE ONE TABLET BY MOUTH DAILY 07/08/2018 08/02/2018 Inactive fluoxetine 40 mg capsule RxNorm: 300318 TAKE ONE CAPSULE BY BENOIT TH EVERY MORNING 07/08/2018 10/05/2018 Inactive Xtampza ER 18 mg capsule sprinkle RxNorm: 5180059 1 Capsule(s) P O BID 07/08/2018 08/02/2018 Inactive Relistor 150 mg tablet RxNorm: 2911895 3 Tablet(s) PO QD 07/08/2018 0 07/12/2018 Inactive Synthroid 88 mcg tablet RxNorm: 680018 1 Tablet(s) PO Q D NEEDS UPDATED LABS BEFORE FURTHER REFILLS 06/23/2018 07/07/2018 Inactive fluoxetine 40 mg capsule RxNorm: 940218 TAKE ONE CAPSULE BY BENOIT TH EVERY MORNING 06/15/2018 09/26/2018 Inactive orphenadrine citrate ER 100 mg tablet,extended release RxNor m: 641969 TAKE ONE TABLET BY MOUTH TWICE A DAY FOR MUSCLE SPASM 06/15/2018 08/15/2018 Renu ctive Duragesic 100 mcg/hr transdermal patch RxNorm: 895437 2 Application TD Q48H for pain 05/30/2018 06/28/2018 Inactive ProAir HFA 90 mcg/actuation aerosol inhaler RxNorm: 810800 INHALE TWO PUFFS BY MOUTH EVERY 4 HOURS FOR WHEEZING OR SHORTNESS OF BREATH 05/19/20180 03/2018 Inactive Chantix Continuing Month Box 1 mg tablet RxNorm: 015843 TAKE ONE TABLET BY MOUTH TWICE A DAY 05/19/2018 08/15/2018 Inactive oxycodone 10 mg tablet RxNorm: 5297976 1-2 Tablet(s) PO QID as n eeded for pain 05/19/2018 07/07/2018 Inactive gabapentin 300 mg capsule RxNorm: 081137 TAKE ONE CAPSULE BY [facility] TWICE A DAY 05/18/2018 07/16/2018 Inactive ProAir HFA 90 mcg/actuation aerosol inhaler RxNorm: 313852 INHALE TWO PUFFS BY MOUTH EVERY 4 HOURS FOR WHEEZING OR SHORTNESS OF BREATH 05/04/201804/23 Inactive Augmentin 500 mg-125 mg tablet RxNorm: 451713 1 Tablet(s) PO BID 05/03/2018 Inactive oxycodone 10 mg tablet RxNorm: 7457831 1-2 Tablet(s) PO QID as n eeded for pain 04/21/2018 05/18/2018 Inactive Synthroid 88 mcg tablet RxNorm: 607161 1 Tablet(s) PO QD 04/15/2018 0 08/08/2018 Inactive Symbicort 160 mcg-4.5 mcg/actuation HFA aerosol inhaler RxNo rm: 8348459 2 Puff(s) INH BID 04/15/2018 04/10/2019 Inactive Premarin 0.45 mg tablet RxNorm: 350235 1 Tablet(s) PO QD 04/15/2018 0 08/03/2018 Inactive ProAir HFA 90 mcg/actuation aerosol inhaler RxNorm: 103192 2 Puff(s) INH Q4H prn for wheezing or shortness of breath 04/15/2018 05/03/2018 Inactive metformin ER 500 mg tablet,extended release 24 hr RxNorm: 86 0975 1 Tablet(s) PO QD 04/11/2018 07/07/2018 Inactive omeprazole 40 mg capsule,delayed release RxNorm: 288188 TAKE ONE CAPSULE BY MOUTH DAILY 04/10/2018 06/08/2018 Inactive Synthroid 88 mcg tablet RxNorm: 570554 1 Tablet(s) PO QD 04/04/2018 0 04/14/2018 Inactive Synthroid 88 mcg tablet RxNorm: 988681 1 Tablet(s) PO QD 04/04/2018 0 04/03/2018 Inactive orphenadrine citrate ER 100 mg tablet,extended release RxNor m: 257917 1 Tablet(s) PO BID for muscle spasm 04/04/2018 05/03/2018 Inactive metformin ER 500 mg tablet,extended release 24 hr RxNorm: 86 0975 1 Tablet(s) PO QD NEEDS UPDATED LABS 03/31/2018 04/11/2018 Inactive doxycycline hyclate 100 mg capsule RxNorm: 8480939 1 Capsule(s) PO BID 03/31/2018 04/09/2018 Inactive prednisone 20 mg tablet RxNorm: 747985 3 Tablet(s) PO T ID for 3 days then 1 po BID for 3 days then one daily for 3 days 03/31/2018 07/06/2018 Inactiv e Chantix Continuing Month Box 1 mg tablet RxNorm: 649793 TAKE ONE TABLET BY MOUTH TWICE A DAY 03/25/2018 03/30/2018 Inactive oxycodone 10 mg tablet RxNorm: 9148201 1-2 Tablet(s) PO QID as n eeded for pain 03/21/2018 04/20/2018 Inactive Daliresp 500 mcg tablet RxNorm: 1898590 1 Tablet(s) PO QD 03/15/2018 08/22/2018 Inactive metformin ER 500 mg tablet,extended release 24 hr RxNorm: 86 0975 1 Tablet(s) PO QD NEEDS UPDATED LABS 03/14/2018 03/31/2018 Inactive nystatin 100,000 unit/mL oral suspension RxNorm: 149495 5 Chio liter(s) PO QID 03/02/2018 03/15/2018 Inactive nystatin 100,000 unit/mL oral suspension RxNorm: 741602 5 Chio liter(s) PO QID 03/02/2018 03/01/2018 Inactive oxycodone 10 mg tablet RxNorm: 3788589 1-2 Tablet(s) PO QID as n eeded for pain 02/16/2018 03/20/2018 Inactive fluoxetine 20 mg capsule RxNorm: 306636 1 Capsule(s) PO QD 02/15/20 18 08/02/2018 Inactive metformin ER 500 mg tablet,extended release 24 hr RxNorm: 86 0975 1 Tablet(s) PO QD Needs updated labs 02/14/2018 03/14/2018 Inactive cefdinir 300 mg capsule RxNorm: 455836 1 Capsule(s) PO BID 01/27/20 18 02/04/2018 Inactive orphenadrine citrate ER 100 mg tablet,extended release RxNor m: 612974 1 Tablet(s) PO BID for muscle spasm 01/26/2018 04/04/2018 Inactive gabapentin 300 mg capsule RxNorm: 267709 1 Capsule(s) PO BID 201704/17/2018 Inactive oxycodone 10 mg tablet RxNorm: 6405569 1-2 Tablet(s) PO QID as n eeded for pain 01/17/2018 02/15/2018 Inactive Duragesic 100 mcg/hr transdermal patch RxNorm: 669505 2 Application TD Q48H for pain 01/17/2018 02/15/2018 Inactive gabapentin 300 mg capsule RxNorm: 215226 TAKE ONE CAPSULE BY MO UTH TWICE A DAY 12/20/2017 01/18/2018 Inactive fluoxetine 40 mg capsule RxNorm: 309050 TAKE ONE CAPSULE BY BENOIT TH EVERY MORNING 12/15/2017 03/14/2018 Inactive OneTouch Ultra Test strips RxNorm: TEST DAILY 11/04/2017 02/01/2018 Inactive gabapentin 300 mg capsule RxNorm: 206041 1 Capsule(s) P O TID replaces BID dosing 10/26/2017 02/22/2018 Inactive oxycodone 10 mg tablet RxNorm: 1173723 1-2 Tablet(s) PO QID as n eeded for pain 10/18/2017 01/16/2018 Inactive Duragesic 100 mcg/hr transdermal patch RxNorm: 405446 2 Application TD Q48H for pain 10/18/2017 11/16/2017 Inactive gabapentin 300 mg capsule RxNorm: 685024 1 Capsule(s) PO BID 201610/25/2017 Inactive Abilify 5 mg tablet RxNorm: 627333 1 Tablet(s) PO QAM 09/23/201702/2017 Inactive gabapentin 300 mg capsule RxNorm: 295401 1 Capsule(s) PO BID 201610/17/2017 Inactive oxycodone 10 mg tablet RxNorm: 3193478 1-2 Tablet(s) PO QID as n eeded for pain 09/15/2017 10/17/2017 Inactive Duragesic 100 mcg/hr transdermal patch RxNorm: 057088 2 Application TD Q48H for pain 09/15/2017 10/14/2017 Inactive Duragesic 100 mcg/hr transdermal patch RxNorm: 081285 2 Application TD Q48H for pain 09/15/2017 10/24/2019 Inactive oxycodone 10 mg tablet RxNorm: 6869949 1-2 Tablet(s) PO QID as n eeded for pain 09/15/2017 08/15/2018 Inactive Daliresp 500 mcg tablet RxNorm: 0403118 1 Tablet(s) PO QD 09/06/2017 03/15/2018 Inactive Ventolin HFA 90 mcg/actuation aerosol inhaler RxNorm: 689046 2 Puff(s) INH Q4H as needed 09/02/2017 05/19/2018 Inactive oxycodone 10 mg tablet RxNorm: 1556104 1-2 Tablet(s) PO QID as n eeded for pain 08/17/2017 09/14/2017 Inactive Duragesic 100 mcg/hr transdermal patch RxNorm: 438274 2 Application TD Q48H for pain 08/17/2017 09/14/2017 Inactive fluoxetine 40 mg capsule RxNorm: 711433 Capsule(s) TAKE ONE CAPSULE BY MOUTH EVERY MORNING 08/17/2017 12/14/2017 Inactive Pulmicort 1 mg/2 mL suspension for nebulization RxNorm: 6168 19 1 Unit Dose INH BID Dx: COPD (J44.9) 08/16/2017 08/22/2018 Inactive gabapentin 300 mg capsule RxNorm: 888771 1 Capsule(s) PO QHS 201610/18/2017 Inactive fluoxetine 20 mg capsule RxNorm: 666271 1 Capsule(s) PO QD 08/12/20 17 02/14/2018 Inactive Abilify 2 mg tablet RxNorm: 529854 1 Tablet(s) PO QD TA KE ONE TABLET BY MOUTH DAILY 08/12/2017 10/25/2017 Inactive metformin ER 500 mg tablet,extended release 24 hr RxNorm: 86 0975 1 Tablet(s) PO QD 08/10/2017 02/14/2018 Inactive Synthroid 112 mcg tablet RxNorm: 393963 1 Tablet(s) PO QD 08/10/2017 04/15/2018 Inactive oxycodone 10 mg tablet RxNorm: 6930795 1-2 Tablet(s) PO QID as n eeded for pain 07/19/2017 08/16/2017 Inactive Duragesic 100 mcg/hr transdermal patch RxNorm: 607958 2 Application TD Q48H for pain 07/19/2017 08/16/2017 Inactive Ventolin HFA 90 mcg/actuation aerosol inhaler RxNorm: 301458 2 Puff(s) INH Q4H as needed 07/12/2017 09/02/2017 Inactive Abilify 2 mg tablet RxNorm: 819683 1 Tablet(s) PO QD TA KE ONE TABLET BY MOUTH DAILY 07/06/2017 08/11/2017 Inactive gabapentin 800 mg tablet RxNorm: 329023 1 Tablet(s) PO TID 06/22/20 17 07/05/2017 Inactive Chantix Starting Month Box 0.5 mg (11)-1 mg (42) table ts in dose pack RxNorm: 437451 TAKE BY MOUTH INSTRUCTED - PER PACKAGE INSTRUCTIONS 06/0707/04/2017 Inactive Ventolin HFA 90 mcg/actuation aerosol inhaler RxNorm: 840195 2 Puff(s) INH Q4H as needed 05/26/2017 07/12/2017 Inactive Duragesic 100 mcg/hr transdermal patch RxNorm: 054605 2 Application TD Q48H for pain 05/19/2017 06/17/2017 Inactive oxycodone 10 mg tablet RxNorm: 0029529 1-2 Tablet(s) PO QID as n eeded for pain 05/19/2017 07/18/2017 Inactive Abilify 2 mg tablet RxNorm: 696163 TAKE ONE TABLET BY MOUTH DAILY 0 05/10/2017 07/05/2017 Inactive Synthroid 112 mcg tablet RxNorm: 750879 1 Tablet(s) PO QD 05/06/2017 08/10/2017 Inactive metformin ER 500 mg tablet,extended release 24 hr RxNorm: 86 0975 1 Tablet(s) PO QD 05/06/2017 08/10/2017 Inactive Topamax 100 mg tablet RxNorm: 813976 1 Tablet(s) PO QHS 05/06/2017 Inactive Premarin 0.45 mg tablet RxNorm: 407435 1 Tablet(s) PO QD 05/06/2017 0 04/15/2018 Inactive orphenadrine citrate ER 100 mg tablet,extended release RxNor m: 321883 1 Tablet(s) PO TID for muscle spasm--replaces methocarbamol 04/29/2017 Inactive oxycodone 10 mg tablet RxNorm: 5026645 1-2 Tablet(s) PO QID as n eeded for pain 04/21/2017 05/18/2017 Inactive Duragesic 100 mcg/hr transdermal patch RxNorm: 507355 2 Application TD Q48H for pain 04/21/2017 05/18/2017 Inactive fluoxetine 40 mg capsule RxNorm: 458280 Capsule(s) TAKE ONE CAPSULE BY MOUTH EVERY MORNING 04/20/2017 08/17/2017 Inactive Ventolin HFA 90 mcg/actuation aerosol inhaler RxNorm: 159784 2 Puff(s) INH Q4H as needed 04/05/2017 05/26/2017 Inactive Symbicort 160 mcg-4.5 mcg/actuation HFA aerosol inhaler RxNo rm: 6893244 2 Puff(s) INH BID 03/30/2017 04/15/2018 Inactive Spiriva with HandiHaler 18 mcg and inhalation capsules RxNor m: 363334 1 Capsule(s) INH QD USING HANDIHALER 03/30/2017 02/12/2019 Inactive Duragesic 100 mcg/hr transdermal patch RxNorm: 193975 2 Application TD Q48H for pain 03/18/2017 04/16/2017 Inactive oxycodone 10 mg tablet RxNorm: 7539503 1-2 Tablet(s) PO QID as n eeded for pain 03/18/2017 04/20/2017 Inactive metformin ER 500 mg tablet,extended release 24 hr RxNorm: 86 0975 Tablet(s) TAKE ONE TABLET BY MOUTH DAILY 03/01/2017 05/06/2017 Inactive Premarin 0.45 mg tablet RxNorm: 342046 Tablet(s) TAKE ONE TABLE T BY MOUTH DAILY 03/01/2017 05/06/2017 Inactive Synthroid 112 mcg tablet RxNorm: 852787 Tablet(s) TAKE ONE TABLET BY MOUTH DAILY 03/01/2017 05/06/2017 Inactive Daliresp 500 mcg tablet RxNorm: 6541329 1 Tablet(s) PO QD 03/01/2017 09/06/2017 Inactive 16.2 mg-0.1037 mg-0.0194 mg tablet RxNorm: 5660875 Tablet(s) PO PRN for gas and cramping 02/23/2017 04/28/2017 Inactive TAKE TWO TABLET S BY MOUTH THREE TIMES A DAY NEEDED FOR GAS AND CRAMPING gabapentin 800 mg tablet RxNorm: 625328 1 Tablet(s) PO TID repl aces 600mg 02/23/2017 04/28/2017 Inactive Duragesic 100 mcg/hr transdermal patch RxNorm: 020390 2 Application TD Q48H for pain 02/17/2017 03/17/2017 Inactive fluoxetine 20 mg capsule RxNorm: 206738 1 Capsule(s) PO QD 02/18/20 17 08/12/2017 Inactive oxycodone 20 mg tablet RxNorm: 5695954 1 Tablet(s) PO QID as nee ded for pain 02/17/2017 03/17/2017 Inactive Ventolin HFA 90 mcg/actuation aerosol inhaler RxNorm: 667396 INHALE TWO PUFFS BY MOUTH EVERY 4 HOURS NEEDED 02/15/2017 04/05/2017 Inactive Silvadene 1 % topical cream RxNorm: 799607 1 Application TOP BI D to burn area 02/01/2017 09/22/2017 Inactive Topamax 100 mg tablet RxNorm: 334954 TAKE ONE TABLET BY MOUTH EVERY NIGHT AT BEDTIME 01/29/2017 05/06/2017 Inactive Chantix Starting Month Box 0.5 mg (11)-1 mg (42) table ts in dose pack RxNorm: 321249 Tablet(s) PO as directed 01/29/2017 06/01/2017 Inactive Abilify 2 mg tablet RxNorm: 300462 TAKE ONE TABLET BY MOUTH DAILY 0 01/26/2017 04/25/2017 Inactive Chantix Starting Month Box 0.5 mg (11)-1 mg (42) table ts in dose pack RxNorm: 681712 Tablet(s) PO as directed 01/20/2017 01/28/2017 Inactive gabapentin 600 mg tablet RxNorm: 354049 1 Tablet(s) PO TID 01/21/20 17 02/22/2017 Inactive Chantix Continuing Month Box 1 mg tablet RxNorm: 293252 1 Table t(s) PO BID 12/31/2016 06/01/2017 Inactive Spiriva with HandiHaler 18 mcg and inhalation capsules RxNor m: 999193 INHALE THE ENTIRE CONTENTS OF 1 CAPSULE ONCE A DAY USING HANDIHALER 12/31/201607/2017 Inactive Synthroid 112 mcg tablet RxNorm: 742420 TAKE ONE TABLET BY MOUT H DAILY 12/30/2016 03/01/2017 Inactive metformin ER 500 mg tablet,extended release 24 hr RxNorm: 86 0975 TAKE ONE TABLET BY MOUTH DAILY 12/30/2016 03/01/2017 Inactive Premarin 0.45 mg tablet RxNorm: 710973 TAKE ONE TABLET BY MOUTH DAILY 12/30/2016 03/01/2017 Inactive omeprazole 40 mg capsule,delayed release RxNorm: 096554 TAKE ONE CAPSULE BY MOUTH DAILY 12/30/2016 01/25/2018 Inactive Ventolin HFA 90 mcg/actuation aerosol inhaler RxNorm: 054614 INHALE TWO PUFFS BY MOUTH EVERY 4 HOURS NEEDED 12/28/2016 02/13/2017 Inactive fluoxetine 40 mg capsule RxNorm: 336121 TAKE ONE CAPSULE BY BENOIT TH EVERY MORNING 12/15/2016 04/20/2017 Inactive Chantix Continuing Month Box 1 mg tablet RxNorm: 537971 TAKE ONE TABLET BY MOUTH TWICE A DAY 12/04/2016 12/31/2016 Inactive doxycycline hyclate 100 mg capsule RxNorm: 5325364 1 Capsule(s) PO BID 12/01/2016 12/07/2016 Inactive Levaquin 750 mg tablet RxNorm: 084975 1 Tablet(s) PO QD 12/01/2016 Inactive Abilify 2 mg tablet RxNorm: 655135 TAKE ONE TABLET BY MOUTH DAILY 0 11/25/2016 11/30/2016 Inactive Ventolin HFA 90 mcg/actuation aerosol inhaler RxNorm: 575495 INHALE TWO PUFFS BY MOUTH EVERY 4 HOURS NEEDED 11/02/2016 12/19/2016 Inactive Chantix Continuing Month Box 1 mg tablet RxNorm: 596178 Tablet(s) PO as directed 10/30/2016 12/03/2016 Inactive Symbicort 160 mcg-4.5 mcg/actuation HFA aerosol inhaler RxNo rm: 4590189 INHALE TWO PUFFS TWO TIMES A DAY 10/30/2016 03/30/2017 Inactive Abilify 2 mg tablet RxNorm: 118682 1 Tablet(s) PO QD 10/27/201611/24 Inactive amoxicillin 500 mg capsule RxNorm: 987089 1 Capsule(s) PO TID 10/1410/23/2016 Inactive amoxicillin 500 mg capsule RxNorm: 594758 1 Capsule(s) PO TID 10/1410/13/2016 Inactive Synthroid 112 mcg tablet RxNorm: 629241 TAKE ONE TABLET BY MOUT H DAILY 09/28/2016 12/29/2016 Inactive Topamax 100 mg tablet RxNorm: 683657 TAKE ONE TABLET BY MOUTH EVERY NIGHT AT BEDTIME 09/28/2016 01/28/2017 Inactive Premarin 0.45 mg tablet RxNorm: 403678 TAKE ONE TABLET BY MOUTH DAILY 09/28/2016 12/29/2016 Inactive metformin ER 500 mg tablet,extended release 24 hr RxNorm: 86 0975 TAKE ONE TABLET BY MOUTH DAILY 09/28/2016 12/29/2016 Inactive Ventolin HFA 90 mcg/actuation aerosol inhaler RxNorm: 447033 INHALE TWO PUFFS BY MOUTH EVERY 4 HOURS NEEDED 09/22/2016 10/23/2016 Inactive Pulmicort 1 mg/2 mL suspension for nebulization RxNorm: 6168 19 1 Unit Dose INH BID Dx: COPD (J44.9) 09/10/2016 08/16/2017 Inactive Pulmicort 1 mg/2 mL suspension for nebulization RxNorm: 6168 19 1 Unit Dose INH BID 09/10/2016 09/09/2016 Inactive Brovana 15 mcg/2 mL solution for nebulization RxNorm: 560146 1 Unit Dose INH BID Dx: COPD (J44.9) 09/10/2016 01/25/2018 Inactive Brovana 15 mcg/2 mL solution for nebulization RxNorm: 241820 1 Unit Dose INH BID 09/10/2016 09/09/2016 Inactive ipratropium-albuterol 0.5 mg-3 mg(2.5 mg base)/3 mL ne bulization soln RxNorm: 4895022 1 Unit Dose INH Q4H as needed Dx: COPD (J44.9) 09/10/2016 0 02/12/2019 Inactive orphenadrine citrate ER 100 mg tablet,extended release RxNor m: 116852 1 Tablet(s) PO BID for muscle spasm--replaces methocarbamol 09/09/2016 Inactive Chantix Continuing Month Box 1 mg tablet RxNorm: 447331 Tablet(s) PO as directed 09/09/2016 10/30/2016 Inactive orphenadrine citrate ER 100 mg tablet,extended release RxNor m: 598004 1 Tablet(s) PO BID for muscle spasm 09/09/2016 09/08/2016 Inactive Spiriva with HandiHaler 18 mcg and inhalation capsules RxNor m: 275145 INHALE THE ENTIRE CONTENTS OF 1 CAPSULE ONCE A DAY USING HANDIHALER 09/01/201605/2017 Inactive Daliresp 500 mcg tablet RxNorm: 8341409 1 Tablet(s) PO QD 08/27/2016 03/01/2017 Inactive prednisone 20 mg tablet RxNorm: 480247 3 Tablet(s) PO T ID for 3 days then 1 po BID for 3 days then one daily for 3 days 08/26/2016 04/28/2017 Inactiv e Wellbutrin XL 300 mg 24 hr tablet, extended release RxNorm: 738144 TAKE ONE TABLET BY MOUTH EVERY MORNING 07/29/2016 10/26/2016 Inactive gabapentin 600 mg tablet RxNorm: 810383 1 Tablet(s) PO BID 06/26/20 16 12/22/2016 Inactive fluoxetine 40 mg capsule RxNorm: 506098 TAKE ONE CAPSULE BY BENOIT TH EVERY MORNING 06/24/2016 11/20/2016 Inactive Duragesic 100 mcg/hr transdermal patch RxNorm: 094358 2 Application TD Q48H for pain 06/05/2016 07/04/2016 Inactive oxycodone 10 mg tablet RxNorm: 7046711 1-2 Tablet(s) PO QID as n eeded for pain 06/05/2016 03/17/2017 Inactive Belladonna-Phenobarbital 48 mg tablet,extended release RxNor m: 2 Tablet(s) PO TID 06/05/2016 01/19/2017 Inactive Premarin 0.45 mg tablet RxNorm: 209956 TAKE ONE TABLET BY MOUTH DAILY 05/27/2016 09/23/2016 Inactive Topamax 100 mg tablet RxNorm: 717677 TAKE ONE TABLET BY MOUTH EVERY NIGHT AT BEDTIME 05/27/2016 09/27/2016 Inactive Synthroid 112 mcg tablet RxNorm: 755206 TAKE ONE TABLET BY MOUT H DAILY 05/27/2016 09/23/2016 Inactive metformin ER 500 mg tablet,extended release 24 hr RxNorm: 86 0975 TAKE ONE TABLET BY MOUTH DAILY 05/27/2016 09/23/2016 Inactive Symbicort 160 mcg-4.5 mcg/actuation HFA aerosol inhaler RxNo rm: 1015490 INHALE TWO PUFFS TWO TIMES A DAY 05/27/2016 10/23/2016 Inactive Ventolin HFA 90 mcg/actuation aerosol inhaler RxNorm: 371246 INHALE TWO PUFFS BY MOUTH EVERY 4 HOURS NEEDED 05/21/2016 07/07/2016 Inactive omeprazole 40 mg capsule,delayed release RxNorm: 054280 1 Capsu le(s) PO QD 05/06/2016 08/03/2016 Inactive metformin ER 500 mg tablet,extended release 24 hr RxNorm: 86 0975 TAKE ONE TABLET BY MOUTH DAILY 04/23/2016 05/22/2016 Inactive methocarbamol 750 mg tablet RxNorm: 076876 2 Tablet(s) PO TID as needed for muscle spasm 04/23/2016 09/08/2016 Inactive Synthroid 112 mcg tablet RxNorm: 911770 TAKE ONE TABLET BY MOUT H DAILY 04/23/2016 05/22/2016 Inactive Spiriva with HandiHaler 18 mcg and inhalation capsules RxNor m: 256801 INHALE THE ENTIRE CONTENTS OF 1 CAPSULE ONCE A DAY USING HANDIHALER 04/09/201608/2016 Inactive Diflucan 100 mg tablet RxNorm: 563706 1 Tablet(s) PO QD 04/08/2016 Inactive doxycycline hyclate 100 mg capsule RxNorm: 2628082 1 Capsule(s) PO BID 04/08/2016 04/17/2016 Inactive doxycycline hyclate 100 mg capsule RxNorm: 6032523 1 Capsule(s) PO BID 04/08/2016 04/07/2016 Inactive Diflucan 100 mg tablet RxNorm: 085071 1 Tablet(s) PO QD 04/08/2016 Inactive ondansetron HCl 4 mg tablet RxNorm: 481824 1 Tablet(s) PO Q4H as needed for nausea and vomiting 04/08/2016 09/22/2017 Inactive gabapentin 600 mg tablet RxNorm: 689894 TAKE ONE TABLET BY MOUT H TWICE A DAY 03/24/2016 06/25/2016 Inactive Synthroid 112 mcg tablet RxNorm: 954712 TAKE ONE TABLET BY MOUT H DAILY 02/25/2016 04/22/2016 Inactive Levaquin 500 mg tablet RxNorm: 730658 1 Tablet(s) PO QD 01/23/2016 Inactive prednisone 20 mg tablet RxNorm: 166549 1 Tablet(s) PO T ID for 3 days then 1 po BID for 3 days then one daily for 3 days 01/23/2016 08/25/2016 Inactiv e [employer] Ultra Test strips RxNorm: TEST BLOOD SUGAR ONCE DAILY 250.00 01/09/2016 11/04/2017 Inactive methocarbamol 750 mg tablet RxNorm: 854520 2 Tablet(s) PO TID as needed for muscle spasm 01/09/2016 04/23/2016 Inactive lactulose 10 gram/15 mL oral solution RxNorm: 778746 [address](s) PO QD 01/09/2016 09/22/2017 Inactive TAKE 1 TABLESPOON BY MOUTH ONCE DAILY metformin ER 500 mg tablet,extended release 24 hr RxNorm: 86 0975 1 Tablet(s) PO QD 12/26/2015 04/22/2016 Inactive fluoxetine 20 mg capsule RxNorm: 664448 1 Capsule(s) PO QD 12/23/19 16 06/19/2016 Inactive Premarin 0.45 mg tablet RxNorm: 953125 TAKE ONE TABLET BY MOUTH DAILY 12/23/2015 05/20/2016 Inactive fluoxetine 40 mg capsule RxNorm: 044026 1 Capsule(s) PO QD 12/23/19 16 06/19/2016 Inactive TAKE ONE CAPSULE BY MOUTH EV JANKI MORNING azithromycin 500 mg tablet RxNorm: 963951 1 Tablet(s) PO QD 016 12/19/2015 Inactive Zofran 4 mg tablet RxNorm: 514419 1 Tablet(s) PO Q4H prn nausea /vomiting 12/13/2015 03/30/2018 Inactive azithromycin 500 mg tablet RxNorm: 046152 1 Tablet(s) PO QD 016 12/12/2015 Inactive Duragesic 100 mcg/hr transdermal patch RxNorm: 684926 2 Application TD Q48H for pain 12/09/2015 01/07/2016 Inactive oxycodone 10 mg tablet RxNorm: 2679459 1-2 Tablet(s) PO QID as n eeded for pain 12/09/2015 06/04/2016 Inactive Bactroban 2 % topical cream RxNorm: 409137 Application TOP BID 11/2208/25/2016 Inactive doxycycline hyclate 100 mg capsule RxNorm: 5498298 1 Capsule(s) PO BID 12/03/2015 12/12/2015 Inactive Topamax 100 mg tablet RxNorm: 216127 TAKE ONE TABLET BY MOUTH EVERY NIGHT AT BEDTIME 11/25/2015 05/22/2016 Inactive Symbicort 160 mcg-4.5 mcg/actuation HFA aerosol inhaler RxNo rm: 0158364 INHALE TWO PUFFS TWO TIMES A DAY 11/25/2015 05/22/2016 Inactive Synthroid 112 mcg tablet RxNorm: 806773 Tablet(s) TAKE ONE TABLET BY MOUTH DAILY 11/25/2015 02/22/2016 Inactive omeprazole 40 mg capsule,delayed release RxNorm: 643616 1 Capsu le(s) PO QD 11/12/2015 05/05/2016 Inactive oxycodone 10 mg tablet RxNorm: 9699308 1-2 Tablet(s) PO QID as n eeded for pain 11/05/2015 12/08/2015 Inactive Duragesic 100 mcg/hr transdermal patch RxNorm: 992167 2 Application TD Q48H for pain 11/05/2015 12/04/2015 Inactive omeprazole 40 mg capsule,delayed release RxNorm: 641564 1 Capsu le(s) PO QD 10/07/2015 11/11/2015 Inactive Januvia 100 mg tablet RxNorm: 853126 TAKE ONE TABLET BY MOUTH DAILY 09/11/2015 12/25/2015 Inactive Zithromax 500 mg tablet RxNorm: 782071 1 Tablet(s) PO QD 09/10/2015 1 Inactive prednisone 20 mg tablet RxNorm: 936860 1 Tablet(s) PO T ID for 3 days then 1 po BID for 3 days then one daily for 3 days 09/10/2015 08/25/2016 Inactiv e Wellbutrin XL 300 mg 24 hr tablet, extended release RxNorm: 047476 1 Tablet(s) PO QAM 09/10/2015 12/02/2015 Inactive Topamax 100 mg tablet RxNorm: 144048 TAKE ONE TABLET BY MOUTH EVERY NIGHT AT BEDTIME 09/02/2015 11/24/2015 Inactive Synthroid 112 mcg tablet RxNorm: 369103 TAKE ONE TABLET BY MOUT H DAILY 09/02/2015 11/25/2015 Inactive methocarbamol 750 mg tablet RxNorm: 166534 2 Tablet(s) PO TID as needed for muscle spasm 08/15/2015 01/09/2016 Inactive Wellbutrin XL 150 mg 24 hr tablet, extended release RxNorm: 845505 TAKE ONE TABLET BY MOUTH EVERY MORNING 08/13/2015 08/13/2015 Inactive gabapentin 600 mg tablet RxNorm: 182610 1 Tablet(s) PO BID 08/13/20 15 02/08/2016 Inactive Wellbutrin XL 300 mg 24 hr tablet, extended release RxNorm: 156244 1 Tablet(s) PO QAM 08/06/2015 09/09/2015 Inactive Wellbutrin XL 150 mg 24 hr tablet, extended release RxNorm: 873087 1 Tablet(s) PO QAM 07/18/2015 08/05/2015 Inactive prednisone 20 mg tablet RxNorm: 644936 1 Tablet(s) PO BID 07/18/2015 07/22/2015 Inactive doxycycline hyclate 100 mg tablet,delayed release RxNorm: 43 4018 1 Tablet(s) PO BID 07/18/2015 07/27/2015 Inactive pravastatin 40 mg tablet RxNorm: 168295 1 Tablet(s) PO QD NEEDS FASTING LAB 07/15/2015 07/14/2015 Inactive pravastatin 40 mg tablet RxNorm: 802908 1 Tablet(s) PO QD NEEDS FASTING LAB 07/15/2015 01/25/2018 Inactive Ventolin HFA 90 mcg/actuation aerosol inhaler RxNorm: 046103 2 Puff(s) INH Q4H 07/08/2015 07/07/2015 Inactive prn Premarin 0.45 mg tablet RxNorm: 941249 1 Tablet(s) PO QD 07/01/2015 0 12/22/2015 Inactive pravastatin 40 mg tablet RxNorm: 287955 1 Tablet(s) PO QD NEEDS FASTING LAB 06/14/2015 07/15/2015 Inactive Ventolin HFA 90 mcg/actuation aerosol inhaler RxNorm: 0099388 2 Puff(s) INH Q4H 06/06/2015 07/08/2015 Inactive prn albuterol sulfate 2.5 mg/3 mL (0.083 %) solution for n ebulization RxNorm: 503836 1 Unit Dose INH QID 05/30/2015 No Stop Date Active Duragesic 100 mcg/hr transdermal patch RxNorm: 826754 2 Application TD Q48H for pain 04/29/2015 05/28/2015 Inactive gabapentin 600 mg tablet RxNorm: 444263 1 Tablet(s) PO BID 04/11/20 15 08/13/2015 Inactive Onglyza 5 mg tablet RxNorm: 517815 1 Tablet(s) PO QD for blood suga r 04/10/2015 04/15/2015 Inactive [Brand Copay Card: RxBIN:[id number] PCN:CRISTIANA RxGRP:[id number] ID#:[id number]] methocarbamol 750 mg tablet RxNorm: 795759 2 Tablet(s) PO TID as needed for muscle spasm 03/28/2015 08/15/2015 Inactive pravastatin 40 mg tablet RxNorm: 171115 1 Tablet(s) PO QD 03/19/2015 03/18/2015 Inactive pravastatin 40 mg tablet RxNorm: 853599 1 Tablet(s) PO QD 03/19/2015 06/14/2015 Inactive lactulose 10 gram/15 mL oral solution RxNorm: 774632 [address]s) PO QD 03/07/2015 01/09/2016 Inactive TAKE 1 TABLESPOON BY MOUTH ONCE DAILY oxycodone 20 mg tablet RxNorm: 8853754 1 Tablet(s) PO QID as nee ded for pain 03/05/2015 07/08/2015 Inactive Topamax 100 mg tablet RxNorm: 527376 1 Tablet(s) PO QHS TAKE ONE TABLET BY MOUTH AT BEDTIME 02/25/2015 02/12/2019 Inactive metformin ER 500 mg tablet,extended release 24 hr RxNorm: 86 0975 1 Tablet(s) PO QD 02/11/2015 03/04/2015 Inactive take one tablet by mouth every day Daliresp 500 mcg tablet RxNorm: 4182735 1 Tablet(s) PO QD 02/11/2015 08/09/2015 Inactive Endocet 10 mg-325 mg tablet RxNorm: 1111201 1 Tablet(s) PO Q4H as needed for pain 01/23/2015 01/23/2015 Inactive gabapentin 600 mg tablet RxNorm: 827165 1 Tablet(s) PO BID 01/23/20 15 04/11/2015 Inactive methocarbamol 750 mg tablet RxNorm: 726139 2 Tablet(s) PO TID as needed for muscle spasm 01/15/2015 02/13/2015 Inactive fluoxetine 40 mg capsule RxNorm: 296662 1 Capsule(s) PO QD 01/14/20 15 12/23/2015 Inactive TAKE ONE CAPSULE BY MOUTH EV JANKI MORNING fluoxetine 20 mg capsule RxNorm: 584580 1 Capsule(s) PO QD 01/14/20 15 12/23/2015 Inactive Premarin 0.45 mg tablet RxNorm: 133033 1 Tablet(s) PO QD 01/02/2015 0 07/01/2015 Inactive Endocet 10 mg-325 mg tablet RxNorm: 9422541 1-2 Tablet(s) PO Q4H 02/12/2019 Inactive PRN PAIN Duragesic 100 mcg/hr transdermal patch RxNorm: 490898 2 Application TD Q48H for pain 12/25/2014 01/23/2015 Inactive Topamax 100 mg tablet RxNorm: 021218 1 Tablet(s) PO QHS TAKE ONE TABLET BY MOUTH AT BEDTIME 12/25/2014 02/24/2015 Inactive Tudorza Pressair 400 mcg/actuation breath activated RxNorm: 3165031 1 BID INHALE ONE PUFF INTO LUNGS TWO TIMES A DAY 12/17/2014 05/15/2015 Inactive Endocet 10 mg-325 mg tablet RxNorm: 4310971 1-2 Tablet(s) PO Q4H 12/19/2014 Inactive PRN PAIN Duragesic 100 mcg/hr transdermal patch RxNorm: 249799 2 Application TD Q48H for pain 11/20/2014 12/24/2014 Inactive OneTouch Ultra Test strips RxNorm: TEST BLOOD SUGAR ONCE DAILY 250.00 11/16/2014 01/08/2016 Inactive omeprazole 40 mg capsule,delayed release RxNorm: 182628 1 Capsu le(s) PO QD 11/13/2014 11/12/2015 Inactive metformin ER 500 mg tablet,extended release 24 hr RxNorm: 86 0975 1 Tablet(s) PO QD 11/12/2014 02/11/2015 Inactive take one tablet by mouth every day Symbicort 160 mcg-4.5 mcg/actuation HFA aerosol inhaler RxNo rm: 0588344 2 Puff(s) INH BID 11/12/2014 03/11/2015 Inactive INHALE 2 PUFFS O RALLY TWO TIMES A DAY gabapentin 800 mg tablet RxNorm: 637642 1 Tablet(s) PO QD TAKE ONE TABLET BY MOUTH ONCE A DAY 10/22/2014 01/01/2015 Inactive Endocet 10 mg-325 mg tablet RxNorm: 1430310 1-2 Tablet(s) PO Q4H 11/15/2014 Inactive PRN PAIN Duragesic 100 mcg/hr transdermal patch RxNorm: 575076 2 Application TD Q48H for pain 10/17/2014 11/19/2014 Inactive gabapentin 800 mg tablet RxNorm: 310869 1 Tablet(s) PO QD TAKE ONE TABLET BY MOUTH ONCE A DAY 10/04/2014 10/21/2014 Inactive Premarin 0.9 mg tablet RxNorm: 946433 1 Tablet(s) PO QD TAKE ONE TABLET BY MOUTH ONCE A DAY 10/04/2014 01/01/2015 Inactive Spiriva with HandiHaler 18 mcg & inhalation capsules RxNorm: 674312 1 Capsule(s) INH QD 10/03/2014 04/30/2015 Inactive Levaquin 500 mg tablet RxNorm: 287692 1 Tablet(s) PO QD 10/03/2014 Inactive prednisone 20 mg tablet RxNorm: 192254 1 Tablet(s) PO QD 10/03/2014 1 12/09/2013 Inactive Duragesic 100 mcg/hr transdermal patch RxNorm: 213895 2 Application TD Q48H for pain 09/18/2014 10/16/2014 Inactive Endocet 10 mg-325 mg tablet RxNorm: 9196486 1-2 Tablet(s) PO Q4H 10/16/2014 Inactive PRN PAIN Synthroid 112 mcg tablet RxNorm: 846368 1 Tablet(s) QD 09/10/2014 Inactive Synthroid 112 mcg tablet RxNorm: 077089 TAKE ONE TABLET BY MOUTH ONE TIME A DAY. NEEDS LABS 09/10/2014 02/06/2015 Inactive omeprazole 40 mg capsule,delayed release RxNorm: 105092 1 Capsu le(s) PO QD 09/03/2014 11/13/2014 Inactive omeprazole 40 mg capsule,delayed release RxNorm: 551074 1 Capsu le(s) PO QD 09/03/2014 09/02/2014 Inactive Spiriva with HandiHaler 18 mcg & inhalation capsules RxNorm: 058537 1 Capsule(s) INH QD 08/27/2014 10/02/2014 Inactive gabapentin 600 mg tablet RxNorm: 360257 1 Tablet(s) PO BID 08/27/20 14 10/22/2014 Inactive Endocet 10 mg-325 mg tablet RxNorm: 3307185 1-2 Tablet(s) PO Q4H 09/17/2014 Inactive PRN PAIN fentanyl 100 mcg/hr transdermal patch RxNorm: 103794 1 Unit Dos e TD QD 08/21/2014 09/19/2014 Inactive Daliresp 500 mcg tablet RxNorm: 9818872 1 Tablet(s) PO QD 08/13/2014 02/11/2015 Inactive Synthroid 112 mcg tablet RxNorm: 724715 TAKE ONE TABLET BY MOUTH ONE TIME A DAY. NEEDS LABS 08/10/2014 09/10/2014 Inactive Endocet 10 mg-325 mg tablet RxNorm: 9134175 1-2 Tablet(s) PO Q4H 08/17/2014 Inactive PRN PAIN Duragesic 100 mcg/hr transdermal patch RxNorm: 216911 2 Application TD Q48H for pain 07/19/2014 09/17/2014 Inactive fluoxetine 40 mg capsule RxNorm: 325664 1 Capsule(s) PO QD 07/17/20 14 01/14/2015 Inactive TAKE ONE CAPSULE BY MOUTH EV JANKI MORNING fluoxetine 20 mg capsule RxNorm: 172786 1 Capsule(s) PO QD 07/17/20 14 01/14/2015 Inactive Spiriva with HandiHaler 18 mcg & inhalation capsules RxNorm: 532914 1 Capsule(s) INH QD 07/17/2014 08/26/2014 Inactive INHALE CONTENTS OF 1 CAPSULE(S) WITH HANDIHALER ONCE DAILY Zofran 4 mg tablet RxNorm: 482805 1 Tablet(s) PO Q4H prn nausea 07/25/2014 Inactive Synthroid 112 mcg tablet RxNorm: 723274 1 Tablet(s) PO QD 07/09/2014 07/09/2014 Inactive methocarbamol 750 mg tablet RxNorm: 544009 2 Tablet(s) PO TID as needed for muscle spasm 07/09/2014 09/06/2014 Inactive Synthroid 112 mcg tablet RxNorm: 247456 1 Tablet(s) PO QD - nee d labs 07/09/2014 08/07/2014 Inactive Medrol (Aníbal) 4 mg tablets in a dose pack RxNorm: 425008 6 Tablet(s) PO QD --then as directed 07/03/2014 07/08/2014 Inactive Tudorza Pressair 400 mcg/actuation breath activated RxNorm: 9410782 1 Puff(s) INH BID 07/03/2014 12/17/2014 Inactive cefdinir 300 mg capsule RxNorm: 166156 1 Capsule(s) PO BID 07/03/20 14 07/12/2014 Inactive Topamax 100 mg tablet RxNorm: 194923 Tablet(s) TAKE ONE TABLET BY MOUTH AT BEDTIME 07/02/2014 02/25/2015 Inactive Duragesic 100 mcg/hr transdermal patch RxNorm: 893977 2 Application TD Q48H for pain 06/25/2014 07/18/2014 Inactive Endocet 10 mg-325 mg tablet RxNorm: 4338692 1-2 Tablet(s) PO Q4H 07/18/2014 Inactive PRN PAIN metformin ER 500 mg tablet,extended release 24 hr RxNorm: 86 0975 1 Tablet(s) PO QD Needs labs 06/18/2014 07/01/2014 Inactive take one tablet by mouth every day Duragesic 100 mcg/hr transdermal patch RxNorm: 716959 2 Application TD Q48H for pain 05/22/2014 06/24/2014 Inactive Synthroid 112 mcg tablet RxNorm: 603615 1 Tablet(s) PO QD 05/22/2014 07/09/2014 Inactive Endocet 10 mg-325 mg tablet RxNorm: 9232106 1-2 Tablet(s) PO Q4H 06/20/2014 Inactive PRN PAIN Endocet 10 mg-325 mg tablet RxNorm: 8940244 1-2 Tablet(s) PO Q4H 05/21/2014 Inactive PRN PAIN Duragesic 100 mcg/hr transdermal patch RxNorm: 775496 2 Application TD Q48H for pain 04/25/2014 05/21/2014 Inactive Daliresp 500 mcg tablet RxNorm: 2710267 1 Tablet(s) PO QD 04/24/2014 08/13/2014 Inactive Symbicort 160 mcg-4.5 mcg/actuation HFA aerosol inhaler RxNo rm: 1128015 2 Puff(s) INH BID 04/24/2014 08/21/2014 Inactive INHALE 2 PUFFS O RALLY TWO TIMES A DAY metformin ER 500 mg tablet,extended release 24 hr RxNorm: 86 0975 1 Tablet(s) PO QD 04/24/2014 11/12/2014 Inactive TAKE ONE TABLET BY MOUTH EVERY DAY [AttnRPh:Saving Apply/Adjudicate RxGRP:LDMGRP RxBIN:[id number] RxPCN:2012 PCode:01 ID#:[id number]] Symbicort 160 mcg-4.5 mcg/actuation HFA aerosol inhaler RxNo rm: [id number] 2 Puff(s) INH BID 04/24/2014 11/12/2014 Inactive INHALE 2 PUFFS O RALLY TWO TIMES A DAY Premarin 0.9 mg tablet RxNorm: 321575 1 Tablet(s) PO QD 04/24/2014 Inactive TAKE ONE TABLET BY MOUTH EVERY DAY metformin ER 500 mg tablet,extended release 24 hr RxNorm: 86 0975 1 Tablet(s) PO QD Needs labs 04/24/2014 06/18/2014 Inactive TAKE ONE TABLET BY MOUTH EVERY DAY [AttnRPh:Saving Apply/Adjudicate RxGRP:LDMGRP RxBIN:[id number] RxPCN:2012 PCode:01 ID#:[id number]] gabapentin 800 mg tablet RxNorm: 178457 1 Tablet(s) PO QD 04/24/2014 10/04/2014 Inactive TAKE ONE TABLET BY MOUTH EVERY DAY Topamax 100 mg tablet RxNorm: 916985 1 Tablet(s) PO QHS 04/17/2014 Inactive Topamax 100 mg tablet RxNorm: 599716 TAKE ONE TABLET BY MOUTH A T BEDTIME 04/17/2014 07/01/2014 Inactive Tudorza Pressair 400 mcg/actuation breath activated RxNorm: 8704333 1 Puff(s) INH BID 04/11/2014 07/02/2014 Inactive Duragesic 100 mcg/hr transdermal patch RxNorm: 630676 2 Application TD Q48H for pain 03/27/2014 04/24/2014 Inactive Endocet 10 mg-325 mg tablet RxNorm: 7862270 1-2 Tablet(s) PO Q4H 04/24/2014 Inactive PRN PAIN Robaxin 750 mg tablet RxNorm: 221825 2 Tablet(s) PO TID as need ed for spasm 02/23/2014 03/28/2015 Inactive Duragesic 100 mcg/hr transdermal patch RxNorm: 850206 2 Application TD Q48H for pain 02/23/2014 No Stop Date Active Endocet 10 mg-325 mg tablet RxNorm: 5498382 1-2 Tablet(s) PO Q4H 03/23/2014 Inactive PRN PAIN Synthroid 112 mcg tablet RxNorm: 535599 1 Tablet(s) PO QD TAKE ONE TABLET BY MOUTH EVERY DAY 02/15/2014 05/22/2014 Inactive Zithromax 500 mg tablet RxNorm: 550754 1 Tablet(s) PO QD 01/30/2014 0 02/05/2014 Inactive Diflucan 100 mg tablet RxNorm: 781764 1 Tablet(s) PO QD 01/30/2014 Inactive prednisone 20 mg tablet RxNorm: 494489 1 Tablet(s) PO BID 01/30/2014 02/05/2014 Inactive fluoxetine 40 mg capsule RxNorm: 012871 1 Capsule(s) PO QD 01/23/20 14 07/16/2014 Inactive TAKE ONE CAPSULE BY MOUTH EV JANKI MORNING fluoxetine 40 mg capsule RxNorm: 031071 1 Capsule(s) PO QD 01/23/20 14 07/17/2014 Inactive TAKE ONE CAPSULE BY MOUTH EV JANKI MORNING cefdinir 300 mg capsule RxNorm: 068699 1 Capsule(s) PO BID 01/16/20 14 01/29/2014 Inactive Zithromax 500 mg tablet RxNorm: 059248 1 Tablet(s) PO QD 01/16/2014 0 01/22/2014 Inactive prednisone 20 mg tablet RxNorm: 205251 1 Tablet(s) PO BID 01/16/2014 01/22/2014 Inactive Spiriva with HandiHaler 18 mcg and inhalation capsules RxNor m: 873757 1 Capsule(s) INH QD 12/18/2013 07/17/2014 Inactive INHALE CONTENT S OF 1 CAPSULE(S) WITH HANDIHALER ONCE DAILY fluoxetine 20 mg capsule RxNorm: 753629 1 Capsule(s) PO QD 12/18/19 14 06/15/2014 Inactive Spiriva with HandiHaler 18 mcg & inhalation capsules RxNorm: 253330 1 Capsule(s) INH QD 12/18/2013 06/15/2014 Inactive INHALE CONTENTS OF 1 CAPSULE(S) WITH HANDIHALER ONCE DAILY fluoxetine 20 mg capsule RxNorm: 763524 1 Capsule(s) PO QD 12/18/19 14 07/17/2014 Inactive cefdinir 300 mg capsule RxNorm: 916533 2 Capsule(s) PO QD 12/12/2013 12/21/2013 Inactive Duragesic 100 mcg/hr transdermal patch RxNorm: 518820 2 Application TD Q48H for pain 12/08/2013 12/07/2013 Inactive Topamax 100 mg tablet RxNorm: 660196 1 Tablet(s) PO QHS 12/04/2013 Inactive Endocet 10 mg-325 mg tablet RxNorm: 3624713 1-2 Tablet(s) PO Q4H 12/26/2013 Inactive PRN PAIN Robaxin 750 mg tablet RxNorm: 709558 2 Tablet(s) PO TID as need ed for spasm 11/07/2013 01/05/2014 Inactive gabapentin 800 mg tablet RxNorm: 368184 1 Tablet(s) PO QD 10/16/2013 04/24/2014 Inactive TAKE ONE TABLET BY MOUTH EVERY DAY Symbicort 160 mcg-4.5 mcg/actuation HFA aerosol inhaler RxNo rm: 7859771 2 Puff(s) INH BID 10/16/2013 04/24/2014 Inactive INHALE 2 PUFFS O RALLY TWO TIMES A DAY Premarin 0.9 mg tablet RxNorm: 057076 1 Tablet(s) PO QD 10/16/2013 Inactive TAKE ONE TABLET BY MOUTH EVERY DAY metformin ER 500 mg tablet,extended release 24 hr RxNorm: 86 0975 1 Tablet(s) PO QD 10/16/2013 04/24/2014 Inactive TAKE ONE TABLET BY MOUTH EVERY DAY Daliresp 500 mcg tablet RxNorm: 9450184 1 Tablet(s) PO QD 10/16/2013 04/24/2014 Inactive Robaxin 750 mg tablet RxNorm: 274850 2 Tablet(s) PO TID as need ed for spasm 10/10/2013 11/06/2013 Inactive Duragesic 100 mcg/hr transdermal patch RxNorm: 150778 2 Application TD Q48H for pain 10/09/2013 No Stop Date Active Soma 350 mg tablet RxNorm: 584876 1 Tablet(s) PO TID 09/27/201310/09 Inactive TAKE ONE TABLET BY MOUTH THREE TIMES A D AY lactulose 10 gram/15 mL oral solution RxNorm: 326306 [address](s) PO QD 09/13/2013 03/07/2015 Inactive TAKE 1 TABLESPOON BY MOUTH ONCE DAILY Duragesic 100 mcg/hr transdermal patch RxNorm: 886248 2 Application TD Q48H for pain 09/06/2013 No Stop Date Active Endocet 10 mg-325 mg tablet RxNorm: 9587652 1-2 Tablet(s) PO Q4H 09/27/2013 Inactive PRN PAIN lancets 28 gauge RxNorm: Miscellaneous As needed for blo od glucose sticks 08/24/2013 No Stop Date Active 16.2 mg-0.1037 mg-0.0194 mg tablet RxNorm: 2610745 Tablet(s) PO PRN for gas and cramping 08/24/2013 01/19/2017 Inactive TAKE TWO TABLET S BY MOUTH THREE TIMES A DAY NEEDED FOR GAS AND CRAMPING Topamax 100 mg tablet RxNorm: 604177 1 Tablet(s) PO QHS 07/31/2013 Inactive Diflucan 100 mg tablet RxNorm: 015769 1 Tablet(s) PO QD 07/27/2013 Inactive cefdinir 300 mg capsule RxNorm: 113008 1 Capsule(s) PO BID 07/26/20 13 08/08/2013 Inactive Daliresp 500 mcg tablet RxNorm: 6871417 1 Tablet(s) PO QD 07/25/2013 10/15/2013 Inactive fluoxetine 40 mg capsule RxNorm: 465587 1 Capsule(s) PO QD 07/25/20 13 01/22/2014 Inactive TAKE ONE CAPSULE BY MOUTH EV JANKI MORNING Senokot-S 8.6 mg-50 mg tablet RxNorm: 0184917 1 Tablet(s) PO BID 10/25/2013 Inactive doxycycline hyclate 100 mg capsule RxNorm: 8553939 1 Capsule(s) PO BID 06/28/2013 07/07/2013 Inactive prednisone 20 mg tablet RxNorm: 561205 1 Tablet(s) PO BID 06/28/2013 07/04/2013 Inactive Zofran 4 mg tablet RxNorm: 723435 1 Tablet(s) PO Q4H prn nausea 03/201307/05/2013 Inactive Spiriva with HandiHaler 18 mcg & inhalation capsules RxNorm: 606649 1 Capsule(s) INH QD 06/26/2013 12/18/2013 Inactive INHALE CONTENTS OF 1 CAPSULE(S) WITH HANDIHALER ONCE DAILY Synthroid 112 mcg tablet RxNorm: 862050 1 Tablet(s) PO QD TAKE ONE TABLET BY MOUTH EVERY DAY 06/19/2013 02/15/2014 Inactive fluoxetine 20 mg capsule RxNorm: 393569 1 Capsule(s) PO QD 06/19/20 13 12/18/2013 Inactive Ventolin HFA 90 mcg/actuation Aerosol Inhaler RxNorm: 8380845 2 Puff(s) INH Q4H 06/05/2013 No Stop Date Active prn Soma 350 mg tablet RxNorm: 330356 1 Tablet(s) PO TID 06/05/201307/04 Inactive TAKE ONE TABLET BY MOUTH THREE TIMES A D AY prednisone 20 mg tablet RxNorm: 243749 1 Tablet(s) PO QD 05/31/2013 0 06/06/2013 Inactive Topamax 100 mg tablet RxNorm: 013276 1 Tablet(s) PO QHS 05/22/2013 Inactive Levaquin 500 mg tablet RxNorm: 891929 1 Tablet(s) PO QD 05/03/2013 Inactive Diflucan 100 mg tablet RxNorm: 610696 1 Tablet(s) PO QD 05/03/2013 Inactive Daliresp 500 mcg tablet RxNorm: 5772125 1 Tablet(s) PO QD 05/01/2013 07/24/2013 Inactive Daliresp 500 mcg tablet RxNorm: 3844856 1 Tablet(s) PO QD 05/01/2013 04/30/2013 Inactive gabapentin 800 mg tablet RxNorm: 227408 1 Tablet(s) PO QD 04/10/2013 10/06/2013 Inactive TAKE ONE TABLET BY MOUTH EVERY DAY metformin ER 500 mg tablet,extended release 24 hr RxNorm: 86 0977 1 Tablet(s) PO QD 04/10/2013 10/06/2013 Inactive TAKE ONE TABLET BY MOUTH EVERY DAY Premarin 0.9 mg tablet RxNorm: 757566 1 Tablet(s) PO QD 04/10/2013 Inactive TAKE ONE TABLET BY MOUTH EVERY DAY Symbicort 160 mcg-4.5 mcg/actuation HFA aerosol inhaler RxNo rm: 8637154 2 Puff(s) INH BID 04/10/2013 10/06/2013 Inactive INHALE 2 PUFFS O RALLY TWO TIMES A DAY Synthroid 112 mcg tablet RxNorm: 923458 1 Tablet(s) PO QD TAKE ONE TABLET BY MOUTH EVERY DAY 04/10/2013 06/18/2013 Inactive Ventolin HFA 90 mcg/actuation Aerosol Inhaler RxNorm: 3589174 2 Puff(s) INH Q4H 04/10/2013 No Stop Date Active prn fentanyl 100 mcg/hr transdermal patch RxNorm: 003464 1 Unit Dos e TD QD 04/03/2013 05/02/2013 Inactive Endocet 10 mg-325 mg tablet RxNorm: 2042194 1-2 Tablet(s) PO Q4H 05/02/2013 Inactive PRN PAIN Topamax 100 mg tablet RxNorm: 562846 1 Tablet(s) PO QHS 03/13/2013 Inactive Reglan 10 mg tablet RxNorm: 076256 1 Tablet(s) PO QID b efore meals and at bedtime 03/13/2013 04/09/2015 Inactive fluoxetine 20 mg capsule RxNorm: 558748 1 Capsule(s) PO QD 02/28/20 13 05/27/2013 Inactive Ventolin HFA 90 mcg/actuation Aerosol Inhaler RxNorm: 8889257 2 Puff(s) INH Q4H 02/13/2013 No Stop Date Active prn fluoxetine 40 mg capsule RxNorm: 462469 1 Capsule(s) PO QD 01/31/20 13 07/24/2013 Inactive TAKE ONE CAPSULE BY MOUTH EV JANKI MORNING Soma 350 mg tablet RxNorm: 354895 1 Tablet(s) PO TID 01/20/201302/18 Inactive TAKE ONE TABLET BY MOUTH THREE TIMES A D AY Endocet 10 mg-325 mg tablet RxNorm: 5839721 1-2 Tablet(s) PO Q4H 02/06/2013 Inactive PRN PAIN MS Contin 200 mg tablet,extended release RxNorm: 732314 1 Table t(s) PO BID 01/18/2013 02/06/2013 Inactive Ventolin HFA 90 mcg/actuation Aerosol Inhaler RxNorm: 0387363 2 Puff(s) INH Q4H 01/04/2013 No Stop Date Active prn Spiriva with HandiHaler 18 mcg & inhalation capsules RxNorm: 458504 1 Capsule(s) INH QD 12/29/2012 06/25/2013 Inactive INHALE CONTENTS OF 1 CAPSULE(S) WITH HANDIHALER ONCE DAILY Spiriva with HandiHaler 18 mcg & inhalation capsules RxNorm: 763157 1 Capsule(s) INH QD 12/26/2012 12/28/2012 Inactive INHALE CONTENTS OF 1 CAPSULE(S) WITH HANDIHALER ONCE DAILY Synthroid 112 mcg tablet RxNorm: 867454 Tablet(s) PO TA KE ONE TABLET BY MOUTH EVERY DAY 12/26/2012 04/09/2013 Inactive Endocet 10 mg-325 mg tablet RxNorm: 3457056 1-2 Tablet(s) PO Q4H 01/17/2013 Inactive PRN PAIN MS Contin 200 mg tablet,extended release RxNorm: 387415 1 Table t(s) PO BID 12/21/2012 01/17/2013 Inactive fluoxetine 20 mg capsule RxNorm: 280067 1 Capsule(s) PO QD 12/06/19 13 02/26/2013 Inactive Synthroid 112 mcg tablet RxNorm: 148368 1 Tablet(s) PO QD 12/06/2012 02/12/2019 Inactive TAKE ONE TABLET BY MOUTH EVERY DAY Ventolin HFA 90 mcg/actuation Aerosol Inhaler RxNorm: 0439578 2 Puff(s) INH Q4H 12/06/2012 No Stop Date Active prn Reglan 10 mg tablet RxNorm: 673452 1 Tablet(s) PO QID b efore meals and at bedtime 11/24/2012 03/12/2013 Inactive Topamax 100 mg tablet RxNorm: 794058 1 Tablet(s) PO QHS 11/16/2012 Inactive Ventolin HFA 90 mcg/actuation Aerosol Inhaler RxNorm: 2498924 2 Puff(s) INH Q4H 11/09/2012 No Stop Date Active prn gabapentin 800 mg tablet RxNorm: 441289 1 Tablet(s) PO QD 10/27/2012 04/09/2013 Inactive TAKE ONE TABLET BY MOUTH EVERY DAY metformin ER 500 mg tablet,extended release 24 hr RxNorm: 86 0977 1 Tablet(s) PO QD 10/27/2012 04/09/2013 Inactive TAKE ONE TABLET BY MOUTH EVERY DAY Symbicort 160 mcg-4.5 mcg/actuation HFA Aerosol Inhaler RxNo rm: 7396972 2 Puff(s) INH BID 10/27/2012 04/09/2013 Inactive INHALE 2 PUFFS O RALLY TWO TIMES A DAY Premarin 0.9 mg tablet RxNorm: 847967 1 Tablet(s) PO QD 10/27/2012 Inactive TAKE ONE TABLET BY MOUTH EVERY DAY Endocet 10 mg-325 mg tablet RxNorm: 0571737 1-2 Tablet(s) PO Q4H 11/24/2012 Inactive PRN PAIN MS Contin 200 mg tablet,extended release RxNorm: 917519 1 Table t(s) PO BID 10/26/2012 11/24/2012 Inactive Soma 350 mg tablet RxNorm: 058856 1 Tablet(s) PO TID 10/04/201211/02 Inactive TAKE ONE TABLET BY MOUTH THREE TIMES A D AY Ventolin HFA 90 mcg/actuation Aerosol Inhaler RxNorm: 2847361 2 Puff(s) INH Q4H 10/03/2012 No Stop Date Active prn Daliresp 500 mcg tablet RxNorm: 2547815 1 Tablet(s) PO QD 09/28/2012 09/27/2012 Inactive Daliresp 500 mcg tablet RxNorm: 7183876 1 Tablet(s) PO QD 09/28/2012 04/25/2013 Inactive fluoxetine 20 mg capsule RxNorm: 229092 1 Capsule(s) PO QD 09/05/2012/06/2012 Inactive Topamax 50 mg tablet RxNorm: 445630 Tablet(s) PO for 1w k then 1 po q HS for 1wk then 2 po q HS 08/29/2012 09/27/2012 Inactive TAKE 1/2 TABLET BY MOUTH AT BEDTIME FOR 1 WEEK, THEN 1 TABLET AT BEDTIME FOR 1 WEEK, THEN 2 TABLETS AT BEDTIME Topamax 100 mg tablet RxNorm: 003398 1 Tablet(s) PO QHS 08/29/2012 Inactive Ventolin HFA 90 mcg/actuation Aerosol Inhaler RxNorm: 3738031 2 Puff(s) INH Q4H 08/19/2012 No Stop Date Active prn Ventolin HFA 90 mcg/actuation Aerosol Inhaler RxNorm: 6105139 2 Puff(s) INH Q4H 08/15/2012 No Stop Date Active prn Synthroid 112 mcg tablet RxNorm: 112543 1 Tablet(s) PO QD 08/10/2012 11/07/2012 Inactive TAKE ONE TABLET BY MOUTH EVERY DAY Synthroid 112 mcg tablet RxNorm: 112572 1 Tablet(s) PO QD 08/01/2012 08/09/2012 Inactive TAKE ONE TABLET BY MOUTH EVERY DAY Reglan 10 mg tablet RxNorm: 961074 1 Tablet(s) PO QID b efore meals and at bedtime 08/01/2012 11/23/2012 Inactive fluoxetine 40 mg capsule RxNorm: 865369 1 Capsule(s) PO QD 08/01/2001/27/2013 Inactive TAKE ONE CAPSULE BY MOUTH EV JANKI MORNING Ventolin HFA 90 mcg/actuation Aerosol Inhaler RxNorm: 3476015 2 Puff(s) INH Q4H 08/01/2012 No Stop Date Active prn Soma 350 mg tablet RxNorm: 561723 1 Tablet(s) PO TID 07/20/201208/18 Inactive TAKE ONE TABLET BY MOUTH THREE TIMES A D AY Spiriva with HandiHaler 18 mcg & inhalation capsules RxNorm: 477199 1 Capsule(s) INH 07/01/2012 12/25/2012 Inactive INHALE CONTENTS OF 1 CAPSULE(S) WITH HANDIHALER ONCE DAILY Zithromax 250 mg Tab RxNorm: 431070 2 Tablet(s) PO QD 06/28/201206/22 Inactive MS Contin 200 mg tablet,extended release RxNorm: 893785 1 Table t(s) PO BID 06/28/2012 07/27/2012 Inactive Endocet 10 mg-325 mg tablet RxNorm: 3076727 1-2 Tablet(s) PO Q4H 07/27/2012 Inactive PRN PAIN Topamax 100 mg tablet RxNorm: 581463 1 Tablet(s) PO QHS 06/28/2012 Inactive 16.2 mg-0.1037 mg-0.0194 mg tablet RxNorm: 1962817 Tablet(s) PO PRN for gas and cramping 06/08/2012 08/23/2013 Inactive TAKE TWO TABLET S BY MOUTH THREE TIMES A DAY NEEDED FOR GAS AND CRAMPING Ventolin HFA 90 mcg/actuation Aerosol Inhaler RxNorm: 0317230 2 Puff(s) INH Q4H 05/23/2012 No Stop Date Active prn Ventolin HFA 90 mcg/actuation Aerosol Inhaler RxNorm: 1618916 2 Puff(s) INH Q4H 05/11/2012 No Stop Date Active prn Synthroid 112 mcg tablet RxNorm: 753052 1 Tablet(s) PO QD 05/09/2012 07/31/2012 Inactive TAKE ONE TABLET BY MOUTH EVERY DAY gabapentin 800 mg tablet RxNorm: 874345 1 Tablet(s) PO QD 05/09/2012 10/26/2012 Inactive TAKE ONE TABLET BY MOUTH EVERY DAY fluoxetine 40 mg capsule RxNorm: 175819 1 Capsule(s) PO QD 05/09/2007/31/2012 Inactive TAKE ONE CAPSULE BY MOUTH EV JANKI MORNING metformin ER 500 mg tablet,extended release 24 hr RxNorm: 86 0977 1 Tablet(s) PO QD 05/09/2012 10/26/2012 Inactive TAKE ONE TABLET BY MOUTH EVERY DAY Premarin 0.9 mg tablet RxNorm: 932825 1 Tablet(s) PO QD 05/09/2012 Inactive TAKE ONE TABLET BY MOUTH EVERY DAY Symbicort 160 mcg-4.5 mcg/actuation HFA Aerosol Inhaler RxNo rm: 9454388 2 Puff(s) INH BID 05/09/2012 10/26/2012 Inactive INHALE 2 PUFFS O RALLY TWO TIMES A DAY Endocet 10 mg-325 mg Tab RxNorm: 5999680 1-2 Tablet(s) PO Q4H 04/2705/26/2012 Inactive PRN PAIN MS Contin 200 mg Tab RxNorm: 733706 1 Tablet(s) PO BID 04/26/201202/2012 Inactive Ventolin HFA 90 mcg/actuation Aerosol Inhaler RxNorm: 8890201 2 Puff(s) INH Q4H 04/25/2012 05/10/2012 Inactive prn Soma 350 mg tablet RxNorm: 460979 2 Tablet(s) PO TID 04/19/201207/19 Inactive TAKE ONE TABLET BY MOUTH THREE TIMES A D AY Ventolin HFA 90 mcg/actuation Aerosol Inhaler RxNorm: 7071795 2 Puff(s) INH Q4H 04/12/2012 04/24/2012 Inactive prn Reglan 10 mg tablet RxNorm: 718371 1 Tablet(s) PO QID b efore meals and at bedtime 04/11/2012 07/31/2012 Inactive MS Contin 200 mg Tab RxNorm: 195162 1 Tablet(s) PO BID 03/30/201202/2012 Inactive Endocet 10 mg-325 mg Tab RxNorm: 3040360 1-2 Tablet(s) PO Q4H 03/3004/26/2012 Inactive PRN PAIN MS Contin 200 mg Tab RxNorm: 511209 1 Tablet(s) PO BID 03/02/201206/2012 Inactive Endocet 10 mg-325 mg Tab RxNorm: 7024027 1-2 Tablet(s) PO Q4H 03/0203/29/2012 Inactive PRN PAIN Daliresp 500 mcg tablet RxNorm: 0170003 1 Tablet(s) PO QD 03/01/2012 09/28/2012 Inactive MS Contin 200 mg Tab RxNorm: 059138 1 Tablet(s) PO BID 02/02/201208/2012 Inactive Endocet 10 mg-325 mg Tab RxNorm: 1009893 1-2 Tablet(s) PO Q4H 02/0103/01/2012 Inactive PRN PAIN fluoxetine 40 mg capsule RxNorm: 739849 1 Capsule(s) PO QD 02/02/2008/01/2012 Inactive TAKE ONE CAPSULE BY MOUTH EV JANKI MORNING Synthroid 112 mcg Tab RxNorm: 121597 1 Tablet(s) PO QD 01/18/2012 Inactive TAKE ONE TABLET BY MOUTH EVERY DAY lactulose 10 gram/15 mL oral solution RxNorm: 014413 [address]s) PO QD 01/18/2012 No Stop Date Active TAKE 1 TABLESPOON BY MOUTH ONCE DAILY Ventolin HFA 90 mcg/actuation Aerosol Inhaler RxNorm: 9593543 2 Puff(s) INH Q4H 01/18/2012 04/11/2012 Inactive prn MS Contin 200 mg Tab RxNorm: 398763 1 Tablet(s) PO BID 01/05/201210/2012 Inactive Endocet 10 mg-325 mg Tab RxNorm: 2614176 1-2 Tablet(s) PO Q4H 01/0502/01/2012 Inactive PRN PAIN ProAir HFA 90 mcg/Actuation Aerosol Inhaler RxNorm: 3906939 2 Pu ff(s) INH Q4H 12/21/2011 No Stop Date Active prn for wheezing or shortness of breath Spiriva with HandiHaler 18 mcg & inhalation Caps RxNorm: 580 261 1 Capsule(s) INH 12/21/2011 06/30/2012 Inactive INHALE CONTENTS OF 1 CAPSULE(S) WITH HANDIHALER ONCE DAILY Reglan 10 mg Tab RxNorm: 503918 1 Tablet(s) PO QID before meals and at bedtime 12/21/2011 04/10/2012 Inactive Synthroid 112 mcg Tab RxNorm: 542196 1 Tablet(s) PO QD 12/21/2011 Inactive TAKE ONE TABLET BY MOUTH EVERY DAY Endocet 10 mg-325 mg Tab RxNorm: 3442241 1-2 Tablet(s) PO Q4H 11/2512/24/2011 Inactive PRN PAIN MS Contin 200 mg Tab RxNorm: 652736 1 Tablet(s) PO BID 11/25/201112/2011 Inactive lactulose 10 gram/15 mL Oral Soln RxNorm: 425581 Milliliter(s) PO 1 No Stop Date Active TAKE 1 TABLESPOON BY MOUTH O NCE DAILY lactulose 10 gram/15 mL Oral Soln RxNorm: 876014 Milliliter(s) PO 1 12/12/2010 11/20/2011 Inactive TAKE 1 TABLESPOON BY MOUTH O NCE DAILY Premarin 0.9 mg Tab RxNorm: 461093 1 Tablet(s) PO QD 10/12/201105/08 Inactive TAKE ONE TABLET BY MOUTH EVERY DAY fluoxetine 20 mg capsule RxNorm: 212977 1 Capsule(s) PO QD 10/12/20 11 09/05/2012 Inactive TAKE ONE CAPSULE BY MOUTH EV JANKI DAY Synthroid 112 mcg Tab RxNorm: 144640 1 Tablet(s) PO QD 10/12/2011 Inactive TAKE ONE TABLET BY MOUTH EVERY DAY metformin ER 500 mg 24 hr Tab RxNorm: 851843 1 Tablet(s) PO QD 09/2311/10/2011 Inactive TAKE ONE TABLET BY MOUTH GLYNN RY DAY Synthroid 112 mcg Tab RxNorm: 735458 1 Tablet(s) PO QD 10/12/2011 Inactive TAKE ONE TABLET BY MOUTH EVERY DAY metformin ER 500 mg 24 hr Tab RxNorm: 858673 1 Tablet(s) PO QD 09/2310/11/2011 Inactive TAKE ONE TABLET BY MOUTH GLYNN RY DAY Prevacid 30 mg Cap RxNorm: 160606 Capsule(s) PO 10/12/2011 01/25/2012 Inactive TAKE ONE CAPSULE BY MOUTH EVERY DAY Symbicort 160 mcg-4.5 mcg/actuation HFA Aerosol Inhaler RxNo rm: 5548815 2 Puff(s) INH BID 10/12/2011 05/08/2012 Inactive INHALE 2 PUFFS O RALLY TWO TIMES A DAY gabapentin 800 mg Tab RxNorm: 180524 1 Tablet(s) PO QD 10/12/2011 Inactive TAKE ONE TABLET BY MOUTH EVERY DAY MS Contin 200 mg Tab RxNorm: 713863 1 Tablet(s) PO BID 09/23/201111/2010 Inactive Endocet 10 mg-325 mg Tab RxNorm: 1068515 1-2 Tablet(s) PO Q4H 09/2310/22/2011 Inactive PRN PAIN Endocet 10 mg-325 mg Tab RxNorm: 9748536 1-2 Tablet(s) PO Q4H 08/2109/19/2011 Inactive PRN PAIN MS Contin 200 mg Tab RxNorm: 426830 1 Tablet(s) PO BID 08/21/2011 Inactive Diflucan 100 mg Tab RxNorm: 967197 1 Tablet(s) PO QD 08/10/201108/16 Inactive cefdinir 300 mg Cap RxNorm: 277148 2 Capsule(s) PO QD 08/10/201107/24 Inactive Reglan 10 mg Tab RxNorm: 553567 1 Tablet(s) PO AC & HS 07/15/2011 Inactive Endocet 10 mg-325 mg Tab RxNorm: 2709305 1-2 Tablet(s) PO Q4H 07/1508/13/2011 Inactive PRN PAIN One Touch Ultra Test strips RxNorm: Miscellaneous BID 06/11/2011 1 01/16/2014 Inactive TEST TWO TIMES A DAY lactulose 10 gram/15 mL Oral Soln RxNorm: 029682 Milliliter(s) PO 0 06/10/2011 10/11/2011 Inactive TAKE 1 TABLESPOON BY MOUTH O NCE DAILY Chantix Continuing Month Aníbal 1 mg Tab RxNorm: 926791 Tablet(s) PO 0 06/10/2011 11/02/2011 Inactive TAKE DIRECTED - PER PACK[employer] GE INSTRUCTIONS fluoxetine 40 mg Cap RxNorm: 468440 Capsule(s) PO 06/10/2011 02/02/20 12 Inactive TAKE ONE CAPSULE BY MOUTH EVERY MORNING Chantix Continuing Month Aníbal 1 mg Tab RxNorm: 080967 Ta blet(s) PO TAKE DIRECTED - PER PACKAGE INSTRUCTIONS 05/13/2011 06/09/2011 Inactive Soma 350 mg Tab RxNorm: 754249 Tablet(s) PO TAKE ON E TABLET BY MOUTH THREE TIMES A DAY 05/13/2011 04/18/2012 Inactive Chantix Continuing Month Aníbal 1 mg Tab RxNorm: 252949 Ta blet(s) PO as directed per package instructions. 04/22/2011 05/12/2011 Inactive Symbicort 160 mcg-4.5 mcg/Actuation HFA Aerosol Inhaler RxNo rm: 0813413 HFA Aerosol Inhaler INH INHALE 2 PUFFS ORALLY TWO TIMES A DAY 04/13/2011 Inactive Synthroid 112 mcg Tab RxNorm: 487290 Tablet(s) PO TAKE ONE TABLET BY MOUTH EVERY DAY 04/13/2011 10/12/2011 Inactive Premarin 0.9 mg Tab RxNorm: 103551 Tablet(s) PO TAKE ON E TABLET BY MOUTH EVERY DAY 04/13/2011 10/12/2011 Inactive gabapentin 800 mg Tab RxNorm: 052372 Tablet(s) PO TAKE ONE TABLET BY MOUTH EVERY DAY 04/13/2011 10/12/2011 Inactive Prevacid 30 mg Cap RxNorm: 273765 1 Capsule(s) PO QD 04/13/201110/11 Inactive Spiriva with HandiHaler 18 mcg & inhalation Caps RxNorm: 580 261 Capsule(s) INH INHALE CONTENTS OF 1 CAPSULE(S) WITH HANDIHALER ONCE DAILY 04/13/2011 12/21/2011 Inactive metformin ER 500 mg 24 hr Tab RxNorm: 630162 Tablet(s) PO TAKE ONE TABLET BY MOUTH EVERY DAY 04/13/2011 10/12/2011 Inactive Soma 350 mg Tab RxNorm: 465706 1 Tablet(s) PO QID 03/30/2011 02/13/20 19 Inactive fluoxetine 20 mg Cap RxNorm: 670899 Capsule(s) PO TAKE ONE CAPSULE BY MOUTH EVERY DAY 03/25/2011 10/12/2011 Inactive cefdinir 300 mg Cap RxNorm: 139659 2 Capsule(s) PO QD 03/19/201105/2011 Inactive 16.2 mg-0.1037 mg-0.0194 mg Tab RxNorm: 9421735 2 Tablet(s) PO TID PRN for gas and cramping 03/16/2011 07/13/2011 Inactive Soma 350 mg Tab RxNorm: 205022 2 Tablet(s) PO TID 03/16/2011 03/29/20 11 Inactive Chantix Starting Month Aníbal 0.5 mg (11)-1 mg (3x14) Tab s in a Dose Pack RxNorm: 396125 Tablet(s) PO as directed 03/02/2011 No Stop Date Active diazepam 10 mg Tab RxNorm: 321692 1 Tablet(s) PO BID 02/10/201101/19 Inactive Zofran 4 mg tablet RxNorm: 292951 1 Tablet(s) PO Q4H prn nausea 02/16/2011 Inactive Diflucan 100 mg Tab RxNorm: 279146 1 Tablet(s) PO QD 01/18/201101/24 Inactive Premarin 0.625 mg/g Vaginal Cream RxNorm: 552928 VAG In sert 1gm vaginally at bedtime 3 times weekly 01/18/2011 02/12/2019 Inactive loratadine 10 mg Tab RxNorm: 535463 1 Tablet(s) PO QD 12/17/201003/2012 Inactive Spiriva with HandiHaler 18 mcg & inhalation Caps RxNorm: 580 261 1 Capsule(s) INH QD 12/17/2010 04/12/2011 Inactive Diflucan 100 mg Tab RxNorm: 051582 1 Tablet(s) PO QD 12/17/201012/23 Inactive diazepam 10 mg Tab RxNorm: 106465 1 Tablet(s) PO BID and PRN 201002/12/2019 Inactive One Touch Ultra Test Strips RxNorm: InVt BID Zainab t blood sugar at least twice daily. 11/11/2010 06/11/2011 Inactive fluoxetine 40 mg Cap RxNorm: 704438 1 Capsule(s) PO QAM 11/11/2010 Inactive diazepam 10 mg Tab RxNorm: 071356 1 Tablet(s) PO BID and PRN 200911/12/2010 Inactive Bactrim DS 800 mg-160 mg Tab RxNorm: 186488 1 Tablet(s) PO BID 09/2210/15/2010 Inactive fluoxetine 20 mg Cap RxNorm: 971110 1 Capsule(s) PO QD 10/02/201008/2011 Inactive Bactrim DS 800 mg-160 mg Tab RxNorm: 771218 1 Tablet(s) PO BID 01/201010/03/2010 Inactive Zofran 4 mg Tab RxNorm: 430833 1 Tablet(s) PO Q4H prn nausea 200910/16/2010 Inactive 16.2 mg-0.1037 mg-0.0194 mg Tab RxNorm: 9480939 2 Tablet(s) PO TID PRN for gas and cramping 09/17/2010 10/21/2010 Inactive Gabapentin 800 mg Tab RxNorm: 217028 1 Tablet(s) PO QD 09/16/2010 Inactive ProAir HFA 90 mcg/Actuation Aerosol Inhaler RxNorm: 4860331 2 Puff(s) INH Q4H prn shortness of breath 09/15/2010 12/13/2010 Inactive gabapentin 800 mg Tab RxNorm: 974917 1 Tablet(s) PO QD 09/15/2010 Inactive Prevacid 30 mg Cap RxNorm: 437990 1 Capsule(s) PO QD 09/15/201004/12 Inactive loratadine 10 mg Tab RxNorm: 597941 1 Tablet(s) PO QD 09/15/201011/23 Inactive Premarin 0.9 mg Tab RxNorm: 555849 1 Tablet(s) PO QD 09/15/201004/12 Inactive Synthroid 112 mcg Tab RxNorm: 464275 1 Tablet(s) PO QD 09/15/2010 Inactive metformin ER 500 mg 24 hr Tab RxNorm: 912478 1 Tablet(s) PO QD 08/2304/12/2011 Inactive Symbicort 160 mcg-4.5 mcg/Actuation Inhalation HFA Aer osol Inhaler RxNorm: 9298294 2 Puff(s) INH BID 09/15/2010 04/12/2011 Inactive diazepam 10 mg Tab RxNorm: 214766 1 Tablet(s) PO BID and PRN 200910/13/2010 Inactive Phentermine 37.5 mg Cap RxNorm: 733076 1 Capsule(s) PO QD 09/02/2010 11/02/2011 Inactive ProAir HFA 90 mcg/Actuation Aerosol Inhaler RxNorm: 0047579 2 Puff(s) INH Q4H prn shortness of breath 08/07/2010 No Stop Date Active Premarin 0.9 mg Tab RxNorm: 445933 1 Tablet(s) PO QD 08/07/201009/14 Inactive Loratadine 10 mg Tab RxNorm: 669945 1 Tablet(s) PO QD 08/07/201008/23 Inactive Lactulose 10 gram/15 mL Oral Soln RxNorm: 746628 1 Unit Dose PO QD 08/07/2010 02/12/2019 Inactive Zofran 4 mg Tab RxNorm: 815517 1 Tablet(s) PO Q4H prn nausea 2009 No Stop Date Active Gabapentin 800 mg Tab RxNorm: 115866 1 Tablet(s) PO QD 08/07/2010 Inactive Synthroid 112 mcg Tab RxNorm: 530003 1 Tablet(s) PO QD 08/07/2010 Inactive Metformin ER 500 mg 24 hr Tab RxNorm: 665697 1 Tablet(s) PO QD 07/2309/14/2010 Inactive Vitamin D 1,000 unit Tab RxNorm: 961396 1 Tablet(s) PO TID 08/07/2002/12/2019 Inactive Symbicort 160 mcg-4.5 mcg/Actuation Inhalation HFA Aer osol Inhaler RxNorm: 1440288 2 Puff(s) INH BID 08/07/2010 09/14/2010 Inactive Prevacid 30 mg Cap RxNorm: 446728 1 Capsule(s) PO QD 08/07/201009/14 Inactive Metformin ER 500 mg 24 hr Tab RxNorm: 991936 1 Tablet(s) PO QD 06/2308/06/2010 Inactive Vitamin D 1,000 unit Tab RxNorm: 390549 1 Tablet(s) PO TID 07/14/2008/06/2010 Inactive Synthroid 112 mcg Tab RxNorm: 348282 1 Tablet(s) PO QD 07/14/2010 Inactive Lactulose 10 gram/15 mL Oral Soln RxNorm: 864562 1 Unit Dose PO QD 07/14/2010 08/06/2010 Inactive Levaquin 500 mg Tab RxNorm: 262603 1 Tablet(s) PO QD 07/14/201007/27 Inactive Premarin 0.9 mg Tab RxNorm: 259065 1 Tablet(s) PO QD 07/14/201008/06 Inactive ProAir HFA 90 mcg/Actuation Aerosol Inhaler RxNorm: 4996518 2 Puff(s) INH Q4H prn shortness of breath 07/14/2010 No Stop Date Active Prevacid 30 mg Cap RxNorm: 383158 1 Capsule(s) PO QD 07/14/201008/06 Inactive Zofran 4 mg Tab RxNorm: 697998 1 Tablet(s) PO Q4H prn nausea 2009 No Stop Date Active Symbicort 160 mcg-4.5 mcg/Actuation Inhalation HFA Aer osol Inhaler RxNorm: 1705009 2 Puff(s) INH BID 07/14/2010 08/06/2010 Inactive Loratadine 10 mg Tab RxNorm: 924048 1 Tablet(s) PO QD 07/14/201007/23 Inactive Gabapentin 800 mg Tab RxNorm: 441046 1 Tablet(s) PO QD 07/14/2010 Inactive Metformin ER 500 mg 24 hr Tab RxNorm: 955649 1 Tablet(s) PO 010 07/13/2010 Inactive Diazepam 10 mg Tab RxNorm: 672708 1 Tablet(s) PO BID and PRN 200909/06/2010 Inactive Premarin 0.9 mg Tab RxNorm: 348746 1 Tablet(s) PO QD 06/09/201007/13 Inactive Zofran 4 mg Tab RxNorm: 607806 1 Tablet(s) PO Q4H prn nausea 2009 No Stop Date Active ProAir HFA 90 mcg/Actuation Aerosol Inhaler RxNorm: 9847740 2 Puff(s) INH Q4H prn shortness of breath 06/09/2010 No Stop Date Active Gabapentin 800 mg Tab RxNorm: 648934 1 Tablet(s) PO QD 06/09/2010 Inactive Loratadine 10 mg Tab RxNorm: 437913 1 Tablet(s) PO QD 06/09/201006/23 Inactive Lactulose 10 gram/15 mL Oral Soln RxNorm: 518390 1 Unit Dose PO QD 06/09/2010 07/13/2010 Inactive Prevacid 30 mg Cap RxNorm: 111382 1 Capsule(s) PO QD 06/09/201007/13 Inactive Synthroid 112 mcg Tab RxNorm: 365530 1 Tablet(s) PO QD 06/09/2010 Inactive Symbicort 160 mcg-4.5 mcg/Actuation Inhalation HFA Aer osol Inhaler RxNorm: 9720980 2 Puff(s) INH BID 06/09/2010 07/13/2010 Inactive Omnicef 300 mg Cap RxNorm: 411627 2 Capsule(s) PO QD 05/07/201005/20 Inactive Metformin 500 mg Tab RxNorm: 594869 1 Tablet(s) PO QD 05/06/201005/22 Inactive ProAir HFA 90 mcg/Actuation Aerosol Inhaler RxNorm: 1109067 2 Puff(s) INH Q4H prn shortness of breath 05/06/2010 No Stop Date Active lactulose 10 gram/15 mL Oral Soln RxNorm: 128353 1 Unit Dose PO QD 05/06/2010 06/10/2011 Inactive Loratadine 10 mg Tab RxNorm: 101551 1 Tablet(s) PO QD 05/06/201005/22 Inactive Synthroid 112 mcg Tab RxNorm: 114792 1 Tablet(s) PO QD 05/06/2010 Inactive Symbicort 160 mcg-4.5 mcg/Actuation Inhalation HFA Aer osol Inhaler RxNorm: 3424340 2 Puff(s) INH BID 05/06/2010 06/08/2010 Inactive Gabapentin 800 mg Tab RxNorm: 923241 1 Tablet(s) PO QD 05/06/2010 Inactive 16.2 mg-0.1037 mg-0.0194 mg Tab RxNorm: 7318581 2 Tablet(s) PO TID PRN for gas and cramping 05/06/2010 05/12/2010 Inactive Zofran 4 mg Tab RxNorm: 392731 1 Tablet(s) PO Q4H prn nausea 200904/13/2010 Inactive MS Contin 60 mg Tab RxNorm: 739999 3 Tablet(s) PO BID 04/09/201004/22 Inactive Soma 350 mg Tab RxNorm: 884801 2 Tablet(s) PO TID 04/09/2010 05/08/20 Inactive Symbicort 160 mcg-4.5 mcg/Actuation Inhalation HFA Aer osol Inhaler RxNorm: 9542388 2 Puff(s) INH BID 04/08/2010 05/05/2010 Inactive Doxycycline 100 mg Cap RxNorm: 9838627 1 Capsule(s) PO BID 04/08/20 10 04/17/2010 Inactive Triamterene-Hydrochlorothiazide 37.5 mg-25 mg Cap RxNorm: 19 8316 1 Capsule(s) PO QAM 04/08/2010 09/04/2010 Inactive fluoxetine 40 mg Cap RxNorm: 154666 1 Capsule(s) PO QAM 04/08/2010 Inactive Morphine SR 120 mg multiphase 24 hr Cap RxNorm: 281446 1 Capsul e(s) PO 03/11/2010 04/07/2010 Inactive Endocet 10 mg-325 mg Tab RxNorm: 1789358 1-2 Tablet(s) PO Q4H NC N PAIN 03/11/2010 04/09/2010 Inactive Savella 100 mg Tab RxNorm: 147399 1 Tablet(s) PO BID 03/10/201004/09 Inactive Soma 350 mg Tab RxNorm: 065668 1 Tablet(s) PO TID prn spasm 010 04/09/2010 Inactive Savella 100 mg Tab RxNorm: 871416 1 Tablet(s) PO BID 02/03/201004/09 Inactive Aspirin 81 mg Tab RxNorm: 891499 1 Tablet(s) PO QD No Start Date Active Zyrtec 10 mg Tab RxNorm: 6535256 1 Tablet(s) PO QD No Start Date Active One Touch Ultra Test Strips RxNorm: Misc test at least t wice daily. No Start Date Active coenzyme Q10 200 mg capsule RxNorm: 884427 1 Capsule(s) PO QD No Star t Date Active One Touch Ultra Test Strips RxNorm: InVt BID Zainab t blood sugar at least twice daily. No Start Date 11/10/2010 Inactive Gabapentin 800 mg Tab RxNorm: 681496 1 Tablet(s) PO QD No Start Date 05/05/2010 Inactive Abilify 5 mg tablet RxNorm: 133840 1 Tablet(s) PO QD No Start Date Inactive Chantix 1 mg Tab RxNorm: 024295 1 Tablet(s) PO BID No Start Date 10/22 Inactive Ozempic 0.25 mg or 0.5 mg (2 mg/1.5 mL) subcutaneous p en injector RxNorm: 2353771 .25 Milligram(s) SQ QW No Start Date 07/04/2019 Inactive lancets 28 gauge RxNorm: Miscellaneous As needed for blo od glucose sticks No Start Date 08/23/2013 Inactive potassium chloride ER 20 mEq tablet,extended release RxNorm: 505561 2 Tablet(s) PO QD No Start Date 09/26/2018 Inactive Ventolin HFA 90 mcg/actuation Aerosol Inhaler RxNorm: 188338 1 2 Puff(s) INH Q4H prn No Start Date 01/17/2012 Inactive potassium chloride ER 20 mEq tablet,extended release RxNorm: 551041 2 Tablet(s) PO QD No Start Date 10/19/2018 Inactive Januvia 100 mg tablet RxNorm: 924334 1 Tablet(s) PO QD No Start Date 09/10/2015 Inactive Medrol (Aníbal) 4 mg Tabs in a Dose Pack RxNorm: 394694 Tablet(s) PO N o Start Date 08/09/2011 Inactive as directed Zithromax Z-Aníbal 250 mg Tab RxNorm: 567978 Tablet(s) PO No Start Date 01/25/2012 Inactive as directed vitamin B6-vitamin E-magnesium tablet RxNorm: 1 Tablet(s ) PO QHS with INH No Start Date 03/30/2018 Inactive prednisone 20 mg Tab RxNorm: 163327 1 Tablet(s) PO TID for 1wk then 1 po BID for 1wk No Start Date 01/25/2012 Inactive furosemide 40 mg tablet RxNorm: 810147 1 Tablet(s) PO QAM No Start Date 10/09/2018 Inactive Vitamin D3 1000 units Capsule RxNorm: 1 Capsule(s) PO TID No S tart Date 03/19/2015 Inactive Zofran 4 mg Tab RxNorm: 664025 1 Tablet(s) PO Q4H prn nausea No Sta rt Date 04/13/2010 Inactive Premarin 0.625 mg/g Vaginal Cream RxNorm: 390499 1 Gram (s) VAG QHS 3 times a week No Start Date 09/22/2017 Inactive oxycodone 10 mg tablet RxNorm: 4535748 1-2 Tablet(s) PO QID as n eeded for pain No Start Date 11/04/2015 Inactive Nicoderm CQ 21 mg/24 hr daily Patch RxNorm: 831078 1 Applicatio n TD QD No Start Date 08/05/2015 Inactive Topamax 50 mg tablet RxNorm: 972202 1/2 Tablet(s) PO QH S for 1wk then 1 po q HS for 1wk then 2 po q HS No Start Date 06/27/2012 Inactive Chantix Starting Month Aníbal 0.5 mg (11)-1 mg (3x14) Tab s in a Dose Pack RxNorm: 701950 Tablet(s) PO as directed No Start Date 03/01/2011 Inactive Trulicity 0.75 mg/0.5 mL subcutaneous pen injector RxNorm: 1 585015 Milliliter(s) SQ No Start Date 07/04/2019 Inactive Medrol (Aníbal) 4 mg Tabs in a Dose Pack RxNorm: 838884 Tablet(s) PO N o Start Date 01/25/2012 Inactive as directed Duragesic 100 mcg/hr Transderm Patch RxNorm: 084962 2 A pplication TD Q48H for pain No Start Date 09/05/2013 Inactive Premarin 0.9 mg Tab RxNorm: 471023 1 Tablet(s) PO QD No Start Date Inactive Zithromax Z-Aníbal 250 mg Tab RxNorm: 701327 Tablet(s) PO as direc chinmay No Start Date 01/25/2012 Inactive ondansetron 8 mg disintegrating tablet RxNorm: 492426 1 Tablet(s) PO Q6H as needed No Start Date 10/10/2018 Inactive oxycodone 15 mg tablet RxNorm: 7825764 1 Tablet(s) PO QID as nee ded for pain No Start Date 03/05/2019 Inactive ProAir HFA 90 mcg/Actuation Aerosol Inhaler RxNorm: 130281 2 Puff(s) INH Q4H prn for wheezing or shortness of breath No Start Date 12/21/2011 Inactive pravastatin 40 mg tablet RxNorm: 579932 1/2 Tablet(s) PO QOD No Sta rt Date 04/09/2015 Inactive ipratropium-albuterol 0.5 mg-3 mg(2.5 mg base)/3 mL ne bulization soln RxNorm: 6834976 1 Unit Dose INH Q4H as needed No Start Date 09/09/2016 Inactive furosemide 40 mg tablet RxNorm: 301271 1 Tablet(s) PO QAM as ne eded No Start Date 09/24/2019 Inactive Vitamin D2 oral RxNorm: 4018 oral No Start Date 03/18/2015 Inacti ve pravastatin 40 mg tablet RxNorm: 624148 1/2 Tablet(s) PO QD No Star t Date 04/09/2015 Inactive ondansetron HCl 4 mg tablet RxNorm: 182114 1 Tablet(s) PO Q4H as needed for nausea and vomiting No Start Date 04/07/2016 Inactive furosemide 40 mg tablet RxNorm: 059449 2 Tablet(s) PO QAM No Start Date 09/26/2018 Inactive gabapentin 800 mg tablet RxNorm: 920855 1/2 Tablet(s) PO BID No Sta rt Date 06/21/2017 Inactive gabapentin 800 mg tablet RxNorm: 011922 1/2 Tablet(s) PO BID No Sta rt Date 07/05/2017 Inactive ProAir HFA 90 mcg/Actuation Aerosol Inhaler RxNorm: 7001591 2 Puff(s) INH Q4H prn shortness of breath No Start Date 05/05/2010 Inactive scopolamine 1 mg over 3 days transdermal patch RxNorm: 11024 2 1 Application TD behind ear. Take off after three days No Start Date 10/10/2018 Inactive Metformin 500 mg Tab RxNorm: 783992 1 Tablet(s) PO QD No Start Date 0 05/05/2010 Inactive MS Contin 200 mg Tab RxNorm: 108037 1 Tablet(s) PO BID No Start Date 08/20/2011 Inactive Belladonna-Phenobarbital 48 mg tablet,extended release RxNor m: 2 Tablet(s) PO TID No Start Date 06/04/2016 Inactive Synthroid 112 mcg Tab RxNorm: 228696 1 Tablet(s) PO QD No Start Date 05/05/2010 Inactive Zegerid 40 mg-1.1 gram Cap RxNorm: 986296 1 Capsule(s) PO QD No Sta rt Date 01/25/2012 Inactive Premarin 0.625 mg/g Vaginal Cream RxNorm: 460701 VAG In sert 1gm vaginally at bedtime 3 times weekly No Start Date 01/17/2011 Inactive potassium chloride ER 20 mEq tablet,extended release RxNorm: 414772 1 Tablet(s) PO QD No Start Date 04/24/2019 Inactive methocarbamol 750 mg tablet RxNorm: 728494 2 Tablet(s) PO TID as needed for muscle spasm No Start Date 07/08/2014 Inactive Biaxin XL Aníbal 500 mg 24 hr Tab RxNorm: 171941 Tablet(s) PO as d irected No Start Date 04/24/2013 Inactive Vitamin D3 1,000 unit tablet RxNorm: 526242 3 Tablet(s) PO QD No St art Date 06/01/2017 Inactive Morphine SR 120 mg multiphase 24 hr Cap RxNorm: 371232 1 Capsul e(s) PO BID No Start Date 04/09/2010 Inactive Silvadene 1 % topical cream RxNorm: 766508 1 Application TOP BI D to burn area No Start Date 01/31/2017 Inactive Prednisone 20 mg Tab RxNorm: 611318 1 Tablet(s) PO TID for 3days then BID for 4days No Start Date 01/25/2012 Inactive gabapentin 600 mg tablet RxNorm: 112597 1 Tablet(s) PO BID No Start Date 01/21/2015 Inactive topiramate 50 mg tablet RxNorm: 628255 1 Tablet(s) PO QHS No Start Date 03/30/2018 Inactive Januvia 100 mg tablet RxNorm: 183577 1/2 Tablet(s) PO QD No Start D ate 12/25/2015 Inactive Diazepam 10 mg Tab RxNorm: 581077 1 Tablet(s) PO BID and PRN No Sta rt Date 06/08/2010 Inactive Medication Administered No Medication Administered data Immunizations Vaccine Codes Date Status Influenza CVX: 141 09/28/2012 Pneumovax Unknown 09/28/2012 Influenza (Adult) CVX: 141 09/02/2010 Results No Results data Procedures Procedure Codes Date THER/PROPH/DIAG INJ SC/IM CPT-4: 14189 07/10/2019 METHYLPREDNISOLONE INJECTION CPT-4: J2930 07/10/2019 URINALYSIS NONAUTO W/O SCOPE CPT-4: 56432 09/06/2018 URINE CULTURE/ COLONY COUNT CPT-4: 21874 09/06/2018 DRAIN/INJECT JOINT/BURSA CPT-4: 06640 04/29/2017 TRIAMCINOLONE ACET INJ NOS CPT-4: J3301 04/29/2017 DEXAMETHASONE SODIUM PHOS CPT-4: J1100 04/29/2017 INFLUENZA ASSAY W/OPTIC CPT-4: 51164 12/01/2016 RESPIRATORY CULTURE & STAIN CPT-4: 54951 07/09/2016 TB INTRADERMAL TEST CPT-4: 71555 04/21/2016 DRAIN/INJECT JOINT/BURSA CPT-4: 85117 11/07/2013 METHYLPREDNISOLONE 40 MG INJ CPT-4: J1030 11/07/2013 TRIAMCINOLONE ACET INJ NOS CPT-4: J3301 11/07/2013 DRAIN/INJECT JOINT/BURSA CPT-4: 99134 08/08/2013 METHYLPREDNISOLONE 40 MG INJ CPT-4: J1030 08/08/2013 TRIAMCINOLONE ACET INJ NOS CPT-4: J3301 08/08/2013 FLU VACCINE 3 YRS & > IM UP 64 CPT-4: 11808 2 PNEUMOCOCCAL VACC 23 ADITYA IM CPT-4: 09496 09/28/2012 IMMUNIZATION ADMIN CPT-4: 30414 09/28/2012 IMMUNIZATION ADMIN EACH ADD CPT-4: 58709 09/28/2012 FLU VACCINE 3 YRS & > IM UP 64 CPT-4: 01530 0 IMMUNIZATION ADMIN CPT-4: 79141 09/02/2010 METHYLPREDNISOLONE INJECTION CPT-4: J2930 05/07/2010 THER/PROPH/DIAG INJ SC/IM CPT-4: 38017 05/07/2010 Vital Signs Date Vital 11/29/2019 Blood [...] 1: 122/78 Code: 8480-6 BMI: 29.5 Code: 64364-9 Heart Rate 1: 76 bpm Height: 5'4" Respiratory Rate: 20 bpm SpO2: 96% Tempera ture: 37.0 (C) / 98.6 (F) Weight: 172 lbs 01/25/2019 Blood Pressure 1: 132/80 Code: 8480-6 BMI: 29.7 Code: 71215-3 Heart Rate 1: 84 bpm Height: 5'4" Respiratory Rate: 22 bpm SpO2: 98% Tempera ture: 36.9 (C) / 98.4 (F) Weight: 173 lbs 01/03/2019 Blood Pressure 1: 116/70 Code: 8480-6 BMI: 29.5 Code: 49725-2 Heart Rate 1: 92 bpm Height: 5'4" Respiratory Rate: 24 bpm SpO2: 98% Tempera ture: 37.2 (C) / 98.9 (F) Weight: 172 lbs 11/21/2018 Blood Pressure 1: 146/82 Code: 8480-6 BMI: 28.2 Code: 66481-9 Heart Rate 1: 88 bpm Height: 5'4" Respiratory Rate: 22 bpm SpO2: 97% Tempera ture: 36.9 (C) / 98.4 (F) Weight: 164 lbs 10/27/2018 Blood Pressure 1: 122/70 Code: 8480-6 BMI: 27.6 Code: 58937-8 Heart Rate 1: 88 bpm Height: 5'4" Respiratory Rate: 20 bpm SpO2: 96% Tempera ture: 36.8 (C) / 98.3 (F) Weight: 161 lbs 10/18/2018 Blood Pressure 1: 126/70 Code: 8480-6 BMI: 28.3 Code: 96810-0 Heart Rate 1: 76 bpm Height: 5'4" Respiratory Rate: 20 bpm SpO2: 95% Tempera ture: 37.0 (C) / 98.6 (F) Weight: 165 lbs 09/27/2018 Blood Pressure 1: 124/78 Code: 8480-6 BMI: 27.1 Code: 35200-7 Heart Rate 1: 88 bpm Height: 5'4" Respiratory Rate: 20 bpm SpO2: 98% Tempera ture: 36.4 (C) / 97.6 (F) Weight: 158 lbs 09/14/2018 Blood Pressure 1: 140/72 Code: 8480-6 BMI: 26.1 Code: 86278-0 Heart Rate 1: 100 bpm Height: 5'4" Respiratory Rate: 20 bpm SpO2: 97% Tempera ture: 36.9 (C) / 98.4 (F) Weight: 152 lbs 09/06/2018 Blood Pressure 1: 156/82 Code: 8480-6 BMI: 26.3 Code: 89397-9 Heart Rate 1: 100 bpm Height: 5'4" Respiratory Rate: 28 bpm SpO2: 95% Tempera ture: 37.2 (C) / 98.9 (F) Weight: 153 lbs 08/16/2018 Blood Pressure 1: 130/78 Code: 8480-6 Heart Rate 1: 87 bpm Respiratory Rate: 24 bpm SpO2: 94% Temperature: 36.9 (C) / 98.4 (F) We ight: 147 lbs 8 oz 07/07/2018 Blood Pressure 1: 116/78 Code: 8480-6 BMI: 22.7 Code: 75769-6 Heart Rate 1: 88 bpm Height: 5'4" Respiratory Rate: 22 bpm SpO2: 98% Tempera ture: 36.5 (C) / 97.7 (F) Weight: 132 lbs 05/31/2018 Blood Pressure 1: 128/78 Code: 8480-6 BMI: 22.3 Code: 29637-5 Heart Rate 1: 92 bpm Height: 5'4" Respiratory Rate: 26 bpm SpO2: 94% Tempera ture: 36.7 (C) / 98.1 (F) Weight: 130 lbs 03/31/2018 Blood Pressure 1: 136/78 Code: 8480-6 BMI: 21.5 Code: 82646-8 Heart Rate 1: 76 bpm Height: 5'4" Respiratory Rate: 24 bpm SpO2: 95% Tempera ture: 36.8 (C) / 98.3 (F) Weight: 125 lbs 01/26/2018 Blood Pressure 1: 142/64 Code: 8480-6 BMI: 20.6 Code: 61103-9 Heart Rate 1: 90 bpm Height: 5'4" Respiratory Rate: 24 bpm SpO2: 92% Tempera ture: 36.3 (C) / 97.3 (F) Weight: 120 lbs 10/26/2017 Blood Pressure 1: 124/70 Code: 8480-6 BMI: 20.3 Code: 30219-2 Heart Rate 1: 76 bpm Height: 5'4" Respiratory Rate: 22 bpm SpO2: 94% Tempera ture: 36.7 (C) / 98.1 (F) Weight: 118 lbs 09/23/2017 Blood Pressure 1: 106/70 Code: 8480-6 BMI: 19.2 Code: 91070-1 Heart Rate 1: 76 bpm Height: 5'4" Respiratory Rate: 20 bpm SpO2: 94% Tempera ture: 36.8 (C) / 98.3 (F) Weight: 112 lbs 08/12/2017 Blood Pressure 1: 116/68 Code: 8480-6 BMI: 20.1 Code: 52338-0 Heart Rate 1: 80 bpm Height: 5'4" Respiratory Rate: 22 bpm SpO2: 95% Tempera ture: 36.8 (C) / 98.2 (F) Weight: 117 lbs 07/06/2017 Blood Pressure 1: 136/78 Code: 8480-6 BMI: 20.6 Code: 88079-3 Heart Rate 1: 76 bpm Height: 5'4" Respiratory Rate: 24 bpm SpO2: 96% Tempera ture: 36.8 (C) / 98.2 (F) Weight: 120 lbs 06/02/2017 Blood Pressure 1: 112/70 Code: 8480-6 Heart Rate 1: 92 bpm Height: 5'4" Respiratory Rate: 24 bpm SpO2: 95% Temperature: 37.0 (C) / 98.6 (F) Weight: 04/29/2017 Blood Pressure 1: 94/52 Code: 8480-6 BMI: 19.6 C ode: 90333-2 Heart Rate 1: 84 bpm Height: 5'4" [...] 92/58 Code: 8480-6 BMI: 19.2 C ode: 17474-9 Heart Rate 1: 84 bpm Height: 5'4" Respiratory Rate: 26 bpm SpO2: 95% Tempera ture: 36.7 (C) / 98.0 (F) Weight: 112 lbs 12/01/2016 Blood Pressure 1: 114/70 Code: 8480-6 BMI: 19.2 Code: 44065-1 Heart Rate 1: 96 bpm Height: 5'4" Respiratory Rate: 28 bpm SpO2: 93% Tempera ture: 38.3 (C) / 101.0 (F) Weight: 112 lbs 10/27/2016 Blood Pressure 1: 126/66 Code: 8480-6 BMI: 19.6 Code: 11490-1 Heart Rate 1: 92 bpm Height: 5'4" Respiratory Rate: 28 bpm SpO2: 90% Tempera ture: 36.8 (C) / 98.3 (F) Weight: 114 lbs 09/09/2016 Blood Pressure 1: 126/74 Code: 8480-6 Heart Rate 1: 104 bpm Height: 5'4" Respiratory Rate: 32 bpm SpO2: 88% Temperature: 37 .2 (C) / 99.0 (F) 08/26/2016 Blood Pressure 1: 134/82 Code: 8480-6 BMI: 22.0 Code: 96688-6 Heart Rate 1: 84 bpm Height: 5'4" Respiratory Rate: 24 bpm SpO2: 94% Tempera ture: 36.8 (C) / 98.3 (F) Weight: 128 lbs 05/21/2016 Blood Pressure 1: 142/80 Code: 8480-6 BMI: 21.6 Code: 10084-1 Heart Rate 1: 104 bpm Height: 5'4" Respiratory Rate: 22 bpm SpO2: 93% Tempera ture: 36.0 (C) / 96.8 (F) Weight: 126 lbs 03/25/2016 Blood Pressure 1: 126/62 Code: 8480-6 Heart Rate 1: 88 bpm Respiratory Rate: 20 bpm SpO2: 92% Temperature: 36.8 (C) / 98.3 (F) We ight: 130 lbs 01/23/2016 Blood Pressure 1: 146/82 Code: 8480-6 BMI: 24.1 Code: 45025-6 Heart Rate 1: 92 bpm Height: 5'3" Respiratory Rate: 22 bpm Temperature: 37 .1 (C) / 98.8 (F) Weight: 136 lbs 12/26/2015 Blood Pressure 1: 142/78 Code: 8480-6 BMI: 24.6 Code: 79440-5 Heart Rate 1: 78 bpm Height: 5'3" Respiratory Rate: 20 bpm Temperature: 36 .7 (C) / 98.1 (F) Weight: 139 lbs 12/03/2015 Blood Pressure 1: 126/60 Code: 8480-6 BMI: 24.6 Code: 59975-5 Heart Rate 1: 100 bpm Height: 5'3" Respiratory Rate: 28 bpm Temperature: 37 .6 (C) / 99.6 (F) Weight: 139 lbs 09/10/2015 Blood Pressure 1: 124/64 Code: 8480-6 BMI: 23.7 Code: 85310-1 Heart Rate 1: 88 bpm Height: 5'3" Respiratory Rate: 24 bpm SpO2: 95% Tempera ture: 36.4 (C) / 97.6 (F) Weight: 134 lbs 08/06/2015 Blood Pressure 1: 114/76 Code: 8480-6 BMI: 23.2 Code: 71585-1 Heart Rate 1: 88 bpm Height: 5'3" Respiratory Rate: 22 bpm Temperature: 36 .6 (C) / 97.9 (F) Weight: 131 lbs 07/18/2015 Blood Pressure 1: 144/78 Code: 8480-6 BMI: 23.7 Code: 39318-6 Heart Rate 1: 84 bpm Height: 5'3" Respiratory Rate: 20 bpm Temperature: 37 .2 (C) / 99.0 (F) Weight: 134 lbs 04/10/2015 Blood Pressure 1: 110/64 Code: 8480-6 Heart Rate 1: 80 bpm Height: Respiratory Rate: 20 bpm Temperature: 37.1 (C) / 98.8 (F) Weight: 03/05/2015 Blood Pressure 1: 136/80 Code: 8480-6 BMI: 23.9 Code: 63143-6 Heart Rate 1: 76 bpm Height: 5'3" Respiratory Rate: 24 bpm Temperature: 37 .0 (C) / 98.6 (F) Weight: 135 lbs 01/30/2015 Blood Pressure 1: 142/80 Code: 8480-6 BMI: 23.0 Code: 17855-7 Heart Rate 1: 96 bpm Height: 5'3" Respiratory Rate: 22 bpm Temperature: 36 .2 (C) / 97.2 (F) Weight: 130 lbs 01/02/2015 Blood Pressure 1: 124/70 Code: 8480-6 BMI: 23.4 Code: 40223-8 Heart Rate 1: 84 bpm Height: 5'3" Respiratory Rate: 24 bpm SpO2: 95% Tempera ture: 36.9 (C) / 98.5 (F) Weight: 132 lbs 10/03/2014 Blood Pressure 1: 106/68 Code: 8480-6 BMI: 22.5 Code: 23558-4 Heart Rate 1: 88 bpm Height: 5'3" Respiratory Rate: 24 bpm Temperature: 37 .0 (C) / 98.6 (F) Weight: 127 lbs 08/27/2014 Blood Pressure 1: 124/68 Code: 8480-6 BMI: 21.1 Code: 79948-2 Heart Rate 1: 88 bpm Height: 5'3" [...] 1: 120/70 Code: 8480-6 BMI: 19.2 Code: 58668-4 Heart Rate 1: 70 bpm Height: 5'4" Respiratory Rate: 20 bpm Temperature: 36 .9 (C) / 98.4 (F) Weight: 112 lbs 06/28/2013 Blood Pressure 1: 102/68 Code: 8480-6 BMI: 19.6 Code: 61328-7 Heart Rate 1: 76 bpm Height: 5'4" Respiratory Rate: 20 bpm Temperature: 36 .8 (C) / 98.2 (F) Weight: 114 lbs 05/31/2013 Blood Pressure 1: 106/70 Code: 8480-6 BMI: 18.9 Code: 53977-5 Heart Rate 1: 100 bpm Height: 5'4" Respiratory Rate: 20 bpm Temperature: 36 .4 (C) / 97.6 (F) Weight: 110 lbs 05/03/2013 Blood Pressure 1: 126/70 Code: 8480-6 BMI: 19.1 Code: 85776-0 Heart Rate 1: 88 bpm Height: 5'4" Respiratory Rate: 20 bpm Temperature: 37 .1 (C) / 98.8 (F) Weight: 111 lbs 04/25/2013 Blood Pressure 1: 114/68 Code: 8480-6 BMI: 19.4 Code: 27424-9 Heart Rate 1: 92 bpm Height: 5'4" Respiratory Rate: 24 bpm SpO2: 96% Tempera ture: 37.7 (C) / 99.8 (F) Weight: 113 lbs 03/08/2013 Blood Pressure 1: 9468 Code: 8480-6 BMI: 21.3 C ode: 53877-3 Heart Rate 1: 88 bpm Height: 5'4" Respiratory Rate: 24 bpm Temperature: 37 .0 (C) / 98.6 (F) Weight: 124 lbs 02/07/2013 Blood Pressure 1: 106/64 Code: 8480-6 BMI: 21.8 Code: 23193-2 Heart Rate 1: 84 bpm Height: 5'4" Respiratory Rate: 22 bpm Temperature: 36 .8 (C) / 98.2 (F) Weight: 127 lbs 01/10/2013 Blood Pressure 1: 122/68 Code: 8480-6 BMI: 21.6 Code: 72760-6 Heart Rate 1: 94 bpm Height: 5'4" SpO2: 94% Temperature: 36.7 (C) / 98.1 (F) Weight: 126 lbs 09/28/2012 Blood Pressure 1: 124/78 Code: 8480-6 BMI: 24.9 Code: 38528-5 Heart Rate 1: 92 bpm Height: 5'4" Respiratory Rate: 20 bpm Temperature: 36 .7 (C) / 98.1 (F) Weight: 145 lbs 06/28/2012 Blood Pressure 1: 134/80 Code: 8480-6 BMI: 24.9 Code: 11147-5 Heart Rate 1: 76 bpm Height: 5'4" Respiratory Rate: 20 bpm Temperature: 36 .8 (C) / 98.2 (F) Weight: 145 lbs 05/03/2012 Blood Pressure 1: 108/62 Code: 8480-6 BMI: 25.6 Code: 08183-1 Heart Rate 1: 88 bpm Height: 5'4" Temperature: 36.2 (C) / 97.2 (F) Weight: 149 lbs 03/01/2012 Blood Pressure 1: 124/66 Code: 8480-6 BMI: 25.1 Code: 89229-6 Heart Rate 1: 76 bpm Height: 5'4" Respiratory Rate: 20 bpm Temperature: 36 .6 (C) / 97.9 (F) Weight: 146 lbs 01/26/2012 Blood Pressure 1: 118/82 Code: 8480-6 BMI: 25.1 Code: 02136-7 Heart Rate 1: 74 bpm Height: 5'4" Temperature: 36.8 (C) / 98.2 (F) Weight: 146 lbs 11/03/2011 Blood Pressure 1: 126/80 Code: 8480-6 BMI: 27.3 Code: 71162-9 Heart Rate 1: 72 bpm Height: 5'4" [...] prozac Encounters Encounter Performer Location Codes Date ([id number]) OFFICE/OUTPATIENT VISIT EST Diagnosis: Chronic pain syndrome[ICD10: G89.4] Diagnosis: Localized edema[ICD10: R60.0] Diagnosis: Chronic obstructive pulmonary disease, unspecified[ICD10: J44.9] Diagnosis: Other fatigue[ICD10: R53.83] Diagnosis: Muscle weakness (generalized)[ICD10: M62.81] Diagnosis: Spinal stenosis, lumbar region with neurogenic claudication[ICD10: M48.062] Vika RENTERIA DO [facility] CPT-4: 79250 11/29/2019 ([id number]) OFFICE/OUTPATIENT VISIT EST Diagnosis: Chronic pain syndrome[ICD10: G89.4] Diagnosis: Lumbar degenerative disc disease[ICD10: M51.36] Diagnosis: Muscle spasm[ICD10: M62.838] Diagnosis: Spinal stenosis, lumbar region with neurogenic claudication[ICD10: M48.062] Diagnosis: Spondylosis without myelopathy or radiculopathy, 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] Vika RENTERIA DO [facility] CPT-4: 07788 10/30/2019 ([id number]) OFFICE/OUTPATIENT VISIT EST Diagnosis: Chronic pain syndrome[ICD10: G89.4] Vika RENTERIA DO [facility] CPT-4: 39621 10/25/2019 ([id number]) OFFICE/OUTPATIENT VISIT EST Diagnosis: Epigastric pain[ICD10: R10.13] Diagnosis: Nausea[ICD10: R11.0] Diagnosis: Chronic obstructive pulmonary disease, unspecified[ICD10: J44.9] Vika RENTERIA DO [facility] CPT-4: 88232 07/26/2019 ([id number]) OFFICE/OUTPATIENT VISIT EST Diagnosis: Chronic obstructive pulmonary disease with (acute) exacerbation[ICD10: J44.1] Diagnosis: Chronic respiratory failure with hypoxia[ICD10: J96.11] Diagnosis: Other fatigue[ICD10: R53.83] Diagnosis: Edema, unspecified[ICD10: R60.9] Vkia RENTERIA DO [facility] CPT-4: 05089 07/19/2019 ([id number]) OFFICE/OUTPATIENT VISIT EST Diagnosis: Chronic obstructive pulmonary disease with acute lower respiratory infection[ICD10: J44.0] Vika RENTERIA DO [facility] CPT-4: 71072 07/10/2019 ([id number]) OFFICE/OUTPATIENT VISIT EST Diagnosis: Type 2 diabetes mellitus with hyperglycemia[ICD10: E11.65] Diagnosis: Other infective otitis externa, left ear[ICD10: H60.392] Vika RENTERIA [facility] [facility] CPT-4: 50403 06/05/2019 ([id number]) OFFICE/OUTPATIENT VISIT EST Diagnosis: Chronic obstructive pulmonary disease with (acute) exacerbation[ICD10: J44.1] Diagnosis: Type 2 diabetes mellitus with hyperglycemia[ICD10: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
--- OUTSIDE RECORDS SUMMARY | 2020-04-24 23:21 | XMS REPORT | CCD ---
Author Author Yana Renteria D.O. Organization [facility] Address [address] [place] [address] Phone Care Team Providers Care Prep Manager Name Role Phone Vika Renteria D.O., PP Unavailable CCM Unavailable Summary Purpose Interface Exchange Insurance Providers Payer name Policy type / Coverage type Covered constitution party ID Effective Begin Date Effective End Date [employer] [facility] Medicaid [id number] 2018 U nknown Family History Family History data not found Social History Social History Element Codes Description Effective Dates Marital status Unknown 06/28/[address]: [id number] Currently smokes tobacco 05/2013 Allergies, Adverse Reactions, [...] Fill Instructions furosemide 40 mg tablet RxNorm: 757111 TAKE ONE TABLET BY MOUTH EVERY MORNING NEEDED 12/20/2019 No Stop Date Active levothyroxine 25 mcg tablet RxNorm: 712259 TAKE ONE TAB LET BY MOUTH EVERY MORNING 12/20/2019 No Stop Date Active MS Contin 200 mg tablet,extended release RxNorm: 307676 1 Tablet(s) Oral two times a day 12/05/2019 01/04/2020 Active Medrol (Aníbal) 4 mg tablets in a dose pack RxNorm: 436308 6 Tablet(s) Oral QD --then as directed 11/30/2019 12/05/2019 Inactive MS Contin 200 mg tablet,extended release RxNorm: 457469 1 Tablet(s) Oral two times a day 11/29/2019 12/04/2019 Inactive cyclobenzaprine 10 mg tablet RxNorm: 854366 TAKE ONE TA BLET BY MOUTH THREE TIMES A DAY NEEDED 11/21/2019 No Stop Date Active MS Contin 200 mg tablet,extended release RxNorm: 892147 1 Tablet(s) Oral two times a day replaces 100mg dose 11/03/2019 11/02/2019 Inactive MS Contin 200 mg tablet,extended release RxNorm: 854587 1 Tablet(s) Oral two times a day replaces 100mg dose 11/03/2019 11/29/2019 Inactive ferrous sulfate 325 mg (65 mg iron) tablet RxNorm: 154570 1 Tab let(s) Oral QD 10/30/2019 No Stop Date Active MS Contin 100 mg tablet,extended release RxNorm: 404880 1 Table t(s) Oral QD 10/30/2019 10/29/2019 Inactive MS Contin 100 mg tablet,extended release RxNorm: 186162 1 Table t(s) Oral QD 10/30/2019 11/02/2019 Inactive Relistor 150 mg tablet RxNorm: 4044724 TAKE THREE TABLETS BY BENOIT TH DAILY 10/25/2019 No Stop Date Active pantoprazole 40 mg tablet,delayed release RxNorm: 018767 1 Tabl et(s) Oral QD 10/25/2019 No Stop Date Active metformin 500 mg tablet RxNorm: 171048 1 Tablet(s) Oral QD 10/25/20 No Stop Date Active Minipress 2 mg capsule RxNorm: 997439 1 Capsule(s) Oral QAM and 3 at bedtime 10/25/2019 No Stop Date Active Lancets, Super Thin RxNorm: 1 Unit Dose Miscellaneous QD 9 11/27/2020 Active Cymbalta 60 mg capsule,delayed release RxNorm: 485159 1 Capsule (s) Oral QAM 10/25/2019 No Stop Date Active Cymbalta 30 mg capsule,delayed release RxNorm: 228610 1 Capsule (s) Oral QAM 10/25/2019 No Stop Date Active oxycodone 15 mg tablet RxNorm: 8070792 1 Tablet(s) Oral four times a day as needed for pain 10/25/2019 11/28/2019 Inactive levothyroxine 25 mcg tablet RxNorm: 830204 1 Tablet(s) Oral QAM 02/201912/19/2019 Inactive levothyroxine 25 mcg tablet RxNorm: 465778 1 Tablet(s) Oral QAM 02/201910/24/2019 Inactive MS Contin 100 mg tablet,extended release RxNorm: 586149 1 Tablet(s) Oral two times a day replaces fentanyl 10/25/2019 10/25/2019 Inactive Premarin 0.45 mg tablet RxNorm: 933623 TAKE ONE TABLET BY MOUTH DAILY 10/24/2019 No Stop Date Active Duragesic 100 mcg/hr transdermal patch RxNorm: 660837 2 Application TD Q48H for pain 10/18/2019 10/24/2019 Inactive gabapentin 300 mg capsule RxNorm: 726673 TAKE ONE CAPSULE BY MO UTH TWICE A DAY 10/16/2019 No Stop Date Active cyclobenzaprine 10 mg tablet RxNorm: 607807 TAKE ONE TA BLET BY MOUTH THREE TIMES A DAY NEEDED 09/27/2019 11/20/2019 Inactive ProAir HFA 90 mcg/actuation aerosol inhaler RxNorm: 981231 INHALE ONE PUFF BY MOUTH EVERY 4 HOURS FOR WHEEZING OR FOR SHORTNESS OF BREATH 09/25/2019 No Stop Date Active Relistor 150 mg tablet RxNorm: 6502720 TAKE THREE TABLETS BY BENOIT TH DAILY 09/25/2019 10/24/2019 Inactive furosemide 40 mg tablet RxNorm: 601041 1 Tablet(s) Oral QAM as needed 09/25/2019 09/25/2019 Inactive oxycodone 15 mg tablet RxNorm: 2543478 1 Tablet(s) PO QID as nee ded for pain 09/21/2019 10/24/2019 Inactive Duragesic 100 mcg/hr transdermal patch RxNorm: 389206 2 Application TD Q48H for pain 09/19/2019 10/17/2019 Inactive Daliresp 500 mcg tablet RxNorm: 5736979 1 Tablet(s) Oral QD 019 03/08/2020 Active potassium chloride ER 20 mEq tablet,extended release RxNorm: 022185 TAKE ONE TABLET BY MOUTH DAILY 07/25/2019 01/20/2020 Active Relistor 150 mg tablet RxNorm: 4763052 TAKE THREE TABLETS BY BENOIT TH DAILY 07/25/2019 07/30/2019 Inactive cyclobenzaprine 10 mg tablet RxNorm: 402509 TAKE ONE TA BLET BY MOUTH THREE TIMES A DAY NEEDED 07/25/2019 09/22/2019 Inactive fluoxetine 40 mg capsule RxNorm: 772197 TAKE ONE CAPSULE BY BENOIT TH EVERY MORNING 07/11/2019 10/24/2019 Inactive Medrol (Aníbal) 4 mg tablets in a dose pack RxNorm: 841669 6 Tablet(s) PO QD --then as directed 07/10/2019 07/15/2019 Inactive omeprazole 40 mg capsule,delayed release RxNorm: 217320 1 Capsule(s) PO QD for stomach TAKE ONE CAPSULE BY MOUTH DAILY 07/10/2019 10/24/2019 Inactive Augmentin 875 mg-125 mg tablet RxNorm: 969685 1 Tablet(s) PO BID 07/16/2019 Inactive Trulicity 0.75 mg/0.5 mL subcutaneous pen injector RxNorm: 1 818453 0.75 Milliliter(s) SQ weekly 07/05/2019 10/24/2019 Inactive Compazine 10 mg tablet RxNorm: 268636 TAKE ONE TABLET B Y MOUTH FOUR TIMES A DAY NEEDED FOR NAUSEA 06/20/2019 07/19/2019 Inactive ProAir HFA 90 mcg/actuation aerosol inhaler RxNorm: 187633 INHALE ONE PUFF BY MOUTH EVERY 4 HOURS FOR WHEEZING OR FOR SHORTNESS OF BREATH 06/20/2019 06/23/2019 Inactive Daliresp 500 mcg tablet RxNorm: 6666544 TAKE ONE TABLET BY MOUTH DAILY 06/12/2019 09/10/2019 Inactive khprrfaz-pnurcueuo-jgvfomwct 3.5 mg/mL-10,000 unit/mL- 1 % ear solution RxNorm: 159551 4 Drop(s) otic (ear) TID to left ear 06/05/2019 10/24/2019 Inac tive furosemide 40 mg tablet RxNorm: 828196 TAKE ONE TABLET BY MOUTH EVERY MORNING 05/26/2019 07/09/2019 Inactive Duragesic 100 mcg/hr transdermal patch RxNorm: 114158 2 Application TD Q48H for pain 05/16/2019 06/14/2019 Inactive oxycodone 15 mg tablet RxNorm: 2446572 1 Tablet(s) PO QID as nee ded for pain 05/10/2019 09/20/2019 Inactive doxycycline hyclate 100 mg capsule RxNorm: 1776187 1 Capsule(s) PO BID 05/03/2019 05/12/2019 Inactive prednisone 20 mg tablet RxNorm: 770688 1 Tablet(s) PO T ID for 3 days then 1 po BID for 3 days then one daily for 3 days 05/03/2019 07/11/2019 Inactiv e Ozempic 0.25 mg or 0.5 mg (2 mg/1.5 mL) subcutaneous p en injector RxNorm: 6335728 0.5 Milligram(s) SQ QW 05/03/2019 07/09/2019 Inactive fluconazole 100 mg tablet RxNorm: 396075 1 Tablet(s) PO QD 05/03/2005/07/2019 Inactive Premarin 0.45 mg tablet RxNorm: 005524 TAKE ONE TABLET BY MOUTH DAILY 05/03/2019 10/23/2019 Inactive potassium chloride ER 20 mEq tablet,extended release RxNorm: 980829 1 Tablet(s) PO QD 04/27/2019 07/25/2019 Inactive potassium chloride ER 20 mEq tablet,extended release RxNorm: 004877 1 Tablet(s) PO QD 04/25/2019 04/26/2019 Inactive Compazine 10 mg tablet RxNorm: 593083 1 Tablet(s) PO QID as nee ded for nausea 04/25/2019 05/04/2019 Inactive ProAir HFA 90 mcg/actuation aerosol inhaler RxNorm: 645211 INHALE ONE PUFF BY MOUTH EVERY 4 HOURS FOR WHEEZING OR FOR SHORTNESS OF BREATH 04/12/2019 06/10/2019 Inactive Medrol (Aníbal) 4 mg tablets in a dose pack RxNorm: 175286 6 Tablet(s) PO QD --then as directed 04/11/2019 04/16/2019 Inactive Symbicort 160 mcg-4.5 mcg/actuation HFA aerosol inhaler RxNo rm: 4268862 2 Puff(s) INH BID 04/10/2019 10/06/2019 Inactive levothyroxine 50 mcg tablet RxNorm: 606251 1 Tablet(s) PO QD 201810/24/2019 Inactive gabapentin 300 mg capsule RxNorm: 980156 1 Capsule(s) PO BID 201810/02/2019 Inactive Symbicort 160 mcg-4.5 mcg/actuation HFA aerosol inhaler RxNo rm: 2130528 2 Puff(s) INH BID 04/06/2019 04/09/2019 Inactive oxycodone 15 mg tablet RxNorm: 3000197 1 Tablet(s) PO QID as nee ded for pain 04/05/2019 05/09/2019 Inactive levothyroxine 50 mcg tablet RxNorm: 388906 1 Tablet(s) PO QD 201804/09/2019 Inactive furosemide 40 mg tablet RxNorm: 941539 TAKE ONE TABLET BY MOUTH EVERY MORNING 03/21/2019 04/19/2019 Inactive levothyroxine 50 mcg tablet RxNorm: 065541 TAKE ONE TABLET BY M OUTH DAILY 03/21/2019 03/27/2019 Inactive Duragesic 100 mcg/hr transdermal patch RxNorm: 851520 2 Application TD Q48H for pain 03/13/2019 04/11/2019 Inactive oxycodone 15 mg tablet RxNorm: 0635594 1 Tablet(s) PO QID as nee ded for pain 03/06/2019 04/04/2019 Inactive Relistor 150 mg tablet RxNorm: 6449564 3 Tablet(s) PO QD 02/28/2019 0 05/28/2019 Inactive cyclobenzaprine 10 mg tablet RxNorm: 676130 1 Tablet(s) PO TID as needed 02/28/2019 05/28/2019 Inactive phentermine 37.5 mg tablet RxNorm: 951303 1 Tablet(s) PO QAM 201803/15/2019 Inactive Duragesic 100 mcg/hr transdermal patch RxNorm: 095727 2 Application TD Q48H for pain 02/09/2019 03/10/2019 Inactive Daliresp 500 mcg tablet RxNorm: 8036167 TAKE ONE TABLET BY MOUTH DAILY 01/31/2019 05/30/2019 Inactive Premarin 0.45 mg tablet RxNorm: 676343 1 Tablet(s) PO QD 01/31/2019 0 04/30/2019 Inactive fluoxetine 40 mg capsule RxNorm: 674091 Capsule(s) TAKE ONE CAPSULE BY MOUTH EVERY MORNING 01/31/2019 04/30/2019 Inactive levothyroxine 50 mcg tablet RxNorm: 748065 1 Tablet(s) PO QD 201804/10/2019 Inactive follow up in 3 weeks levothyroxine 50 mcg tablet RxNorm: 652952 1 Tablet(s) PO QD 201801/25/2019 Inactive follow up in 3 weeks potassium chloride ER 20 mEq tablet,extended release RxNorm: 498294 2 Tablet(s) PO BID 01/23/2019 02/14/2019 Inactive Synthroid 50 mcg tablet RxNorm: 892011 TAKE ONE TABLET BY MOUTH DAILY 01/16/2019 10/24/2019 Inactive potassium chloride ER 20 mEq tablet,extended release RxNorm: 914239 2 Tablet(s) PO BID 01/04/2019 01/22/2019 Inactive ProAir HFA 90 mcg/actuation aerosol inhaler RxNorm: 853185 INHALE ONE PUFF BY MOUTH EVERY 4 HOURS FOR WHEEZING OR SHORTNESS OF BREATH 01/04/201902/20 Inactive Request already responded to by other me ans (e.g. phone or fax) ProAir HFA 90 mcg/actuation aerosol inhaler RxNorm: 9987353 INHALE ONE PUFF BY MOUTH EVERY 4 HOURS FOR WHEEZING OR SHORTNESS OF BREATH 01/02/201912/23 Inactive gabapentin 300 mg capsule RxNorm: 157863 TAKE ONE CAPSULE BY MO UTH TWICE A DAY 12/30/2018 04/06/2019 Inactive furosemide 40 mg tablet RxNorm: 502482 1 Tablet(s) PO QAM 12/26/2018 02/23/2019 Inactive Compazine 10 mg tablet RxNorm: 150930 1 Tablet(s) PO QID as nee ded for nausea 12/07/2018 12/16/2018 Inactive metolazone 2.5 mg tablet RxNorm: 113254 TAKE ONE TABLET BY MOUT H EVERY MORNING 12/05/2018 01/03/2019 Inactive metformin ER 500 mg tablet,extended release 24 hr RxNorm: 86 0975 TAKE ONE TABLET BY MOUTH DAILY 12/05/2018 04/10/2019 Inactive Synthroid 50 mcg tablet RxNorm: 345135 1 Tablet(s) PO QD 11/25/2018 0 01/03/2019 Inactive DC any other synthroid strengths. Should be 50mcg only cyclobenzaprine 10 mg tablet RxNorm: 367621 TAKE ONE TA BLET BY MOUTH THREE TIMES A DAY NEEDED 11/09/2018 02/06/2019 Inactive metolazone 2.5 mg tablet RxNorm: 522226 1 Tablet(s) PO QAM repl aces 5mg dose 11/02/2018 12/01/2018 Inactive potassium chloride ER 20 mEq tablet,extended release RxNorm: 835122 2 Tablet(s) PO QD 2018 01/02/2019 Inactive Compazine 10 mg tablet RxNorm: 229169 1 Tablet(s) PO QID as nee ded for nausea 10/18/2018 12/07/2018 Inactive furosemide 40 mg tablet RxNorm: 699865 1 Tablet(s) PO QAM 10/12/2018 12/10/2018 Inactive ondansetron 8 mg disintegrating tablet RxNorm: 440261 1 Tablet(s) PO Q6H as needed 10/11/2018 10/17/2018 Inactive scopolamine 1 mg over 3 days transdermal patch RxNorm: 77748 2 1 Application TD behind ear. Take off after three days 10/11/2018 01/02/2019 Inactive furosemide 40 mg tablet RxNorm: 013053 1 Tablet(s) PO QAM 10/10/2018 12/26/2018 Inactive metolazone 5 mg tablet RxNorm: 831473 1 Tablet(s) PO QAM 10/06/2018 1 01/03/2018 Inactive metolazone 5 mg tablet RxNorm: 014214 1 Tablet(s) PO QAM 10/06/2018 1 12/05/2017 Inactive Xtampza ER 36 mg capsule sprinkle RxNorm: 3945972 1 Capsule(s) P O BID 10/05/2018 01/02/2019 Inactive Xtampza ER 36 mg capsule sprinkle RxNorm: 2081659 1 Capsule(s) P O BID 10/05/2018 02/12/2019 Inactive omeprazole 40 mg capsule,delayed release RxNorm: 059620 TAKE ONE CAPSULE BY MOUTH DAILY 10/03/2018 12/31/2018 Inactive Duragesic 100 mcg/hr transdermal patch RxNorm: 785811 2 Application TD Q48H for pain 09/30/2018 10/29/2018 Inactive Synthroid 50 mcg tablet RxNorm: 436625 1 Tablet(s) PO QD 09/29/2018 0 11/25/2018 Inactive DC any other synthroid strengths. Should be 50mcg only Synthroid 50 mcg tablet RxNorm: 285549 1 Tablet(s) PO QD 09/29/2018 1 11/28/2017 Inactive furosemide 40 mg tablet RxNorm: 329115 2 Tablet(s) PO Q AM for 1 week then every other day for 2 weeks 09/27/2018 10/12/2018 Inactive fluoxetine 40 mg capsule RxNorm: 788345 2 Capsule(s) PO QD 09/27/20 18 10/17/2018 Inactive potassium chloride ER 20 mEq tablet,extended release RxNorm: 550447 2 Tablet(s) PO QD for 1 week then every other day for 2 weeks 09/27/2018 2018 Inactive ProAir HFA 90 mcg/actuation aerosol inhaler RxNorm: 0607021 INHALE ONE PUFF BY MOUTH EVERY 4 HOURS FOR WHEEZING OR SHORTNESS OF BREATH 09/26/201811/23 Inactive Synthroid 75 mcg tablet RxNorm: 026495 1 Tablet(s) PO QD 09/09/2018 1 Inactive Synthroid 75 mcg tablet RxNorm: 598211 1 Tablet(s) PO QD 09/09/2018 1 11/28/2017 Inactive furosemide 40 mg tablet RxNorm: 425968 1 Tablet(s) PO QD 09/06/2018 1 Inactive potassium chloride ER 20 mEq tablet,extended release RxNorm: 777761 1 Tablet(s) PO QD 09/06/2018 09/19/2018 Inactive Duragesic 100 mcg/hr transdermal patch RxNorm: 425231 2 Application TD Q48H for pain 08/30/2018 09/28/2018 Inactive gabapentin 300 mg capsule RxNorm: 582855 TAKE ONE CAPSULE BY MO [facility] TWICE A DAY 08/23/2018 12/20/2018 Inactive Daliresp 500 mcg tablet RxNorm: 0990690 TAKE ONE TABLET BY MOUTH DAILY 08/23/2018 01/19/2019 Inactive Pulmicort 1 mg/2 mL suspension for nebulization RxNorm: 6168 19 USE ONE VIAL VIA NEBULIZER BY MOUTH TWICE A DAY 08/23/2018 07/11/2019 Inactive Synthroid 88 mcg tablet RxNorm: 169274 1 Tablet(s) PO QD 08/19/2018 1 Inactive Medrol (Aníbal) 4 mg tablets in a dose pack RxNorm: 814261 Tablet(s) PO take as directed 08/16/2018 09/05/2018 Inactive Relistor 150 mg tablet RxNorm: 0850681 3 Tablet(s) PO QD 08/16/2018 1 Inactive Zithromax Z-Aníbal 250 mg tablet RxNorm: 323426 Tablet(s) PO take as directed 08/16/2018 09/05/2018 Inactive cyclobenzaprine 10 mg tablet RxNorm: 237142 1 Tablet(s) PO TID as needed 08/16/2018 11/08/2018 Inactive Synthroid 88 mcg tablet RxNorm: 483600 1 Tablet(s) PO Q D NEEDS UPDATED LABS BEFORE FURTHER REFILLS 08/08/2018 08/19/2018 Inactive Premarin 0.45 mg tablet RxNorm: 142457 1 Tablet(s) PO QD 08/03/2018 0 01/31/2019 Inactive fluoxetine 20 mg capsule RxNorm: 074980 TAKE ONE CAPSULE BY BENOIT TH DAILY 08/03/2018 09/26/2018 Inactive Xtampza ER 36 mg capsule sprinkle RxNorm: 7398025 1 Capsule(s) P O BID 08/03/2018 09/01/2018 Inactive metformin ER 500 mg tablet,extended release 24 hr RxNorm: 86 0975 1 Tablet(s) PO QD 08/03/2018 10/31/2018 Inactive Symbicort 160 mcg-4.5 mcg/actuation HFA aerosol inhaler RxNo rm: 5507990 2 Puff(s) INH BID 08/03/2018 01/29/2019 Inactive Duragesic 100 mcg/hr transdermal patch RxNorm: 732981 2 Application TD Q48H for pain 07/29/2018 08/27/2018 Inactive ProAir HFA 90 mcg/actuation aerosol inhaler RxNorm: 031536 INHALE TWO PUFFS BY MOUTH EVERY 4 HOURS FOR WHEEZING OR SHORTNESS OF BREATH 07/27/201802/2018 Inactive Relistor 150 mg tablet RxNorm: 0430571 3 Tablet(s) PO QD 07/20/2018 0 08/15/2018 Inactive metformin ER 500 mg tablet,extended release 24 hr RxNorm: 86 0975 TAKE ONE TABLET BY MOUTH DAILY 07/08/2018 08/02/2018 Inactive fluoxetine 40 mg capsule RxNorm: 216678 TAKE ONE CAPSULE BY BENOIT TH EVERY MORNING 07/08/2018 10/05/2018 Inactive Xtampza ER 18 mg capsule sprinkle RxNorm: 9725507 1 Capsule(s) P O BID 07/08/2018 08/02/2018 Inactive Relistor 150 mg tablet RxNorm: 5712300 3 Tablet(s) PO QD 07/08/2018 0 07/12/2018 Inactive Synthroid 88 mcg tablet RxNorm: 703114 1 Tablet(s) PO Q D NEEDS UPDATED LABS BEFORE FURTHER REFILLS 06/23/2018 07/07/2018 Inactive fluoxetine 40 mg capsule RxNorm: 874906 TAKE ONE CAPSULE BY BENOIT TH EVERY MORNING 06/15/2018 09/26/2018 Inactive orphenadrine citrate ER 100 mg tablet,extended release RxNor m: 398398 TAKE ONE TABLET BY MOUTH TWICE A DAY FOR MUSCLE SPASM 06/15/2018 08/15/2018 Renu ctive Duragesic 100 mcg/hr transdermal patch RxNorm: 096142 2 Application TD Q48H for pain 05/30/2018 06/28/2018 Inactive ProAir HFA 90 mcg/actuation aerosol inhaler RxNorm: 356049 INHALE TWO PUFFS BY MOUTH EVERY 4 HOURS FOR WHEEZING OR SHORTNESS OF BREATH 05/19/20180 03/2018 Inactive Chantix Continuing Month Box 1 mg tablet RxNorm: 470092 TAKE ONE TABLET BY MOUTH TWICE A DAY 05/19/2018 08/15/2018 Inactive oxycodone 10 mg tablet RxNorm: 5757514 1-2 Tablet(s) PO QID as n eeded for pain 05/19/2018 07/07/2018 Inactive gabapentin 300 mg capsule RxNorm: 424890 TAKE ONE CAPSULE BY [facility] TWICE A DAY 05/18/2018 07/16/2018 Inactive ProAir HFA 90 mcg/actuation aerosol inhaler RxNorm: 969500 INHALE TWO PUFFS BY MOUTH EVERY 4 HOURS FOR WHEEZING OR SHORTNESS OF BREATH 05/04/201804/23 Inactive Augmentin 500 mg-125 mg tablet RxNorm: 530171 1 Tablet(s) PO BID 05/03/2018 Inactive oxycodone 10 mg tablet RxNorm: 5401059 1-2 Tablet(s) PO QID as n eeded for pain 04/21/2018 05/18/2018 Inactive Synthroid 88 mcg tablet RxNorm: 058484 1 Tablet(s) PO QD 04/15/2018 0 08/08/2018 Inactive Symbicort 160 mcg-4.5 mcg/actuation HFA aerosol inhaler RxNo rm: 4359561 2 Puff(s) INH BID 04/15/2018 04/10/2019 Inactive Premarin 0.45 mg tablet RxNorm: 551784 1 Tablet(s) PO QD 04/15/2018 0 08/03/2018 Inactive ProAir HFA 90 mcg/actuation aerosol inhaler RxNorm: 072369 2 Puff(s) INH Q4H prn for wheezing or shortness of breath 04/15/2018 05/03/2018 Inactive metformin ER 500 mg tablet,extended release 24 hr RxNorm: 86 0975 1 Tablet(s) PO QD 04/11/2018 07/07/2018 Inactive omeprazole 40 mg capsule,delayed release RxNorm: 030637 TAKE ONE CAPSULE BY MOUTH DAILY 04/10/2018 06/08/2018 Inactive Synthroid 88 mcg tablet RxNorm: 463869 1 Tablet(s) PO QD 04/04/2018 0 04/14/2018 Inactive Synthroid 88 mcg tablet RxNorm: 005501 1 Tablet(s) PO QD 04/04/2018 0 04/03/2018 Inactive orphenadrine citrate ER 100 mg tablet,extended release RxNor m: 725725 1 Tablet(s) PO BID for muscle spasm 04/04/2018 05/03/2018 Inactive metformin ER 500 mg tablet,extended release 24 hr RxNorm: 86 0975 1 Tablet(s) PO QD NEEDS UPDATED LABS 03/31/2018 04/11/2018 Inactive doxycycline hyclate 100 mg capsule RxNorm: 4489999 1 Capsule(s) PO BID 03/31/2018 04/09/2018 Inactive prednisone 20 mg tablet RxNorm: 285929 3 Tablet(s) PO T ID for 3 days then 1 po BID for 3 days then one daily for 3 days 03/31/2018 07/06/2018 Inactiv e Chantix Continuing Month Box 1 mg tablet RxNorm: 882076 TAKE ONE TABLET BY MOUTH TWICE A DAY 03/25/2018 03/30/2018 Inactive oxycodone 10 mg tablet RxNorm: 7570673 1-2 Tablet(s) PO QID as n eeded for pain 03/21/2018 04/20/2018 Inactive Daliresp 500 mcg tablet RxNorm: 8412048 1 Tablet(s) PO QD 03/15/2018 08/22/2018 Inactive metformin ER 500 mg tablet,extended release 24 hr RxNorm: 86 0975 1 Tablet(s) PO QD NEEDS UPDATED LABS 03/14/2018 03/31/2018 Inactive nystatin 100,000 unit/mL oral suspension RxNorm: 876763 5 Chio liter(s) PO QID 03/02/2018 03/15/2018 Inactive nystatin 100,000 unit/mL oral suspension RxNorm: 520250 5 Chio liter(s) PO QID 03/02/2018 03/01/2018 Inactive oxycodone 10 mg tablet RxNorm: 6995919 1-2 Tablet(s) PO QID as n eeded for pain 02/16/2018 03/20/2018 Inactive fluoxetine 20 mg capsule RxNorm: 761948 1 Capsule(s) PO QD 02/15/20 18 08/02/2018 Inactive metformin ER 500 mg tablet,extended release 24 hr RxNorm: 86 0975 1 Tablet(s) PO QD Needs updated labs 02/14/2018 03/14/2018 Inactive cefdinir 300 mg capsule RxNorm: 123102 1 Capsule(s) PO BID 01/27/20 18 02/04/2018 Inactive orphenadrine citrate ER 100 mg tablet,extended release RxNor m: 651308 1 Tablet(s) PO BID for muscle spasm 01/26/2018 04/04/2018 Inactive gabapentin 300 mg capsule RxNorm: 803132 1 Capsule(s) PO BID 201704/17/2018 Inactive oxycodone 10 mg tablet RxNorm: 1110909 1-2 Tablet(s) PO QID as n eeded for pain 01/17/2018 02/15/2018 Inactive Duragesic 100 mcg/hr transdermal patch RxNorm: 146807 2 Application TD Q48H for pain 01/17/2018 02/15/2018 Inactive gabapentin 300 mg capsule RxNorm: 650123 TAKE ONE CAPSULE BY MO UTH TWICE A DAY 12/20/2017 01/18/2018 Inactive fluoxetine 40 mg capsule RxNorm: 387055 TAKE ONE CAPSULE BY BENOIT TH EVERY MORNING 12/15/2017 03/14/2018 Inactive OneTouch Ultra Test strips RxNorm: TEST DAILY 11/04/2017 02/01/2018 Inactive gabapentin 300 mg capsule RxNorm: 516796 1 Capsule(s) P O TID replaces BID dosing 10/26/2017 02/22/2018 Inactive oxycodone 10 mg tablet RxNorm: 7192797 1-2 Tablet(s) PO QID as n eeded for pain 10/18/2017 01/16/2018 Inactive Duragesic 100 mcg/hr transdermal patch RxNorm: 705745 2 Application TD Q48H for pain 10/18/2017 11/16/2017 Inactive gabapentin 300 mg capsule RxNorm: 494533 1 Capsule(s) PO BID 201610/25/2017 Inactive Abilify 5 mg tablet RxNorm: 251228 1 Tablet(s) PO QAM 09/23/201702/2017 Inactive gabapentin 300 mg capsule RxNorm: 218309 1 Capsule(s) PO BID 201610/17/2017 Inactive oxycodone 10 mg tablet RxNorm: 5211113 1-2 Tablet(s) PO QID as n eeded for pain 09/15/2017 10/17/2017 Inactive Duragesic 100 mcg/hr transdermal patch RxNorm: 434960 2 Application TD Q48H for pain 09/15/2017 10/14/2017 Inactive Duragesic 100 mcg/hr transdermal patch RxNorm: 953643 2 Application TD Q48H for pain 09/15/2017 10/24/2019 Inactive oxycodone 10 mg tablet RxNorm: 4615258 1-2 Tablet(s) PO QID as n eeded for pain 09/15/2017 08/15/2018 Inactive Daliresp 500 mcg tablet RxNorm: 5511471 1 Tablet(s) PO QD 09/06/2017 03/15/2018 Inactive Ventolin HFA 90 mcg/actuation aerosol inhaler RxNorm: 035661 2 Puff(s) INH Q4H as needed 09/02/2017 05/19/2018 Inactive oxycodone 10 mg tablet RxNorm: 6943732 1-2 Tablet(s) PO QID as n eeded for pain 08/17/2017 09/14/2017 Inactive Duragesic 100 mcg/hr transdermal patch RxNorm: 502581 2 Application TD Q48H for pain 08/17/2017 09/14/2017 Inactive fluoxetine 40 mg capsule RxNorm: 856518 Capsule(s) TAKE ONE CAPSULE BY MOUTH EVERY MORNING 08/17/2017 12/14/2017 Inactive Pulmicort 1 mg/2 mL suspension for nebulization RxNorm: 6168 19 1 Unit Dose INH BID Dx: COPD (J44.9) 08/16/2017 08/22/2018 Inactive gabapentin 300 mg capsule RxNorm: 104194 1 Capsule(s) PO QHS 201610/18/2017 Inactive fluoxetine 20 mg capsule RxNorm: 726586 1 Capsule(s) PO QD 08/12/20 17 02/14/2018 Inactive Abilify 2 mg tablet RxNorm: 207313 1 Tablet(s) PO QD TA KE ONE TABLET BY MOUTH DAILY 08/12/2017 10/25/2017 Inactive metformin ER 500 mg tablet,extended release 24 hr RxNorm: 86 0975 1 Tablet(s) PO QD 08/10/2017 02/14/2018 Inactive Synthroid 112 mcg tablet RxNorm: 336426 1 Tablet(s) PO QD 08/10/2017 04/15/2018 Inactive oxycodone 10 mg tablet RxNorm: 6044201 1-2 Tablet(s) PO QID as n eeded for pain 07/19/2017 08/16/2017 Inactive Duragesic 100 mcg/hr transdermal patch RxNorm: 904879 2 Application TD Q48H for pain 07/19/2017 08/16/2017 Inactive Ventolin HFA 90 mcg/actuation aerosol inhaler RxNorm: 911584 2 Puff(s) INH Q4H as needed 07/12/2017 09/02/2017 Inactive Abilify 2 mg tablet RxNorm: 373414 1 Tablet(s) PO QD TA KE ONE TABLET BY MOUTH DAILY 07/06/2017 08/11/2017 Inactive gabapentin 800 mg tablet RxNorm: 176786 1 Tablet(s) PO TID 06/22/20 17 07/05/2017 Inactive Chantix Starting Month Box 0.5 mg (11)-1 mg (42) table ts in dose pack RxNorm: 999163 TAKE BY MOUTH INSTRUCTED - PER PACKAGE INSTRUCTIONS 06/0707/04/2017 Inactive Ventolin HFA 90 mcg/actuation aerosol inhaler RxNorm: 804645 2 Puff(s) INH Q4H as needed 05/26/2017 07/12/2017 Inactive Duragesic 100 mcg/hr transdermal patch RxNorm: 897828 2 Application TD Q48H for pain 05/19/2017 06/17/2017 Inactive oxycodone 10 mg tablet RxNorm: 9450183 1-2 Tablet(s) PO QID as n eeded for pain 05/19/2017 07/18/2017 Inactive Abilify 2 mg tablet RxNorm: 557725 TAKE ONE TABLET BY MOUTH DAILY 0 05/10/2017 07/05/2017 Inactive Synthroid 112 mcg tablet RxNorm: 855875 1 Tablet(s) PO QD 05/06/2017 08/10/2017 Inactive metformin ER 500 mg tablet,extended release 24 hr RxNorm: 86 0975 1 Tablet(s) PO QD 05/06/2017 08/10/2017 Inactive Topamax 100 mg tablet RxNorm: 923260 1 Tablet(s) PO QHS 05/06/2017 Inactive Premarin 0.45 mg tablet RxNorm: 535151 1 Tablet(s) PO QD 05/06/2017 0 04/15/2018 Inactive orphenadrine citrate ER 100 mg tablet,extended release RxNor m: 527180 1 Tablet(s) PO TID for muscle spasm--replaces methocarbamol 04/29/2017 Inactive oxycodone 10 mg tablet RxNorm: 1294811 1-2 Tablet(s) PO QID as n eeded for pain 04/21/2017 05/18/2017 Inactive Duragesic 100 mcg/hr transdermal patch RxNorm: 902001 2 Application TD Q48H for pain 04/21/2017 05/18/2017 Inactive fluoxetine 40 mg capsule RxNorm: 110634 Capsule(s) TAKE ONE CAPSULE BY MOUTH EVERY MORNING 04/20/2017 08/17/2017 Inactive Ventolin HFA 90 mcg/actuation aerosol inhaler RxNorm: 648277 2 Puff(s) INH Q4H as needed 04/05/2017 05/26/2017 Inactive Symbicort 160 mcg-4.5 mcg/actuation HFA aerosol inhaler RxNo rm: 4281744 2 Puff(s) INH BID 03/30/2017 04/15/2018 Inactive Spiriva with HandiHaler 18 mcg and inhalation capsules RxNor m: 078659 1 Capsule(s) INH QD USING HANDIHALER 03/30/2017 02/12/2019 Inactive Duragesic 100 mcg/hr transdermal patch RxNorm: 133010 2 Application TD Q48H for pain 03/18/2017 04/16/2017 Inactive oxycodone 10 mg tablet RxNorm: 0327790 1-2 Tablet(s) PO QID as n eeded for pain 03/18/2017 04/20/2017 Inactive metformin ER 500 mg tablet,extended release 24 hr RxNorm: 86 0975 Tablet(s) TAKE ONE TABLET BY MOUTH DAILY 03/01/2017 05/06/2017 Inactive Premarin 0.45 mg tablet RxNorm: 626165 Tablet(s) TAKE ONE TABLE T BY MOUTH DAILY 03/01/2017 05/06/2017 Inactive Synthroid 112 mcg tablet RxNorm: 575146 Tablet(s) TAKE ONE TABLET BY MOUTH DAILY 03/01/2017 05/06/2017 Inactive Daliresp 500 mcg tablet RxNorm: 7926766 1 Tablet(s) PO QD 03/01/2017 09/06/2017 Inactive 16.2 mg-0.1037 mg-0.0194 mg tablet RxNorm: 4205451 Tablet(s) PO PRN for gas and cramping 02/23/2017 04/28/2017 Inactive TAKE TWO TABLET S BY MOUTH THREE TIMES A DAY NEEDED FOR GAS AND CRAMPING gabapentin 800 mg tablet RxNorm: 921902 1 Tablet(s) PO TID repl aces 600mg 02/23/2017 04/28/2017 Inactive Duragesic 100 mcg/hr transdermal patch RxNorm: 053714 2 Application TD Q48H for pain 02/17/2017 03/17/2017 Inactive fluoxetine 20 mg capsule RxNorm: 633084 1 Capsule(s) PO QD 02/18/20 17 08/12/2017 Inactive oxycodone 20 mg tablet RxNorm: 0720192 1 Tablet(s) PO QID as nee ded for pain 02/17/2017 03/17/2017 Inactive Ventolin HFA 90 mcg/actuation aerosol inhaler RxNorm: 618325 INHALE TWO PUFFS BY MOUTH EVERY 4 HOURS NEEDED 02/15/2017 04/05/2017 Inactive Silvadene 1 % topical cream RxNorm: 478284 1 Application TOP BI D to burn area 02/01/2017 09/22/2017 Inactive Topamax 100 mg tablet RxNorm: 359688 TAKE ONE TABLET BY MOUTH EVERY NIGHT AT BEDTIME 01/29/2017 05/06/2017 Inactive Chantix Starting Month Box 0.5 mg (11)-1 mg (42) table ts in dose pack RxNorm: 027392 Tablet(s) PO as directed 01/29/2017 06/01/2017 Inactive Abilify 2 mg tablet RxNorm: 700345 TAKE ONE TABLET BY MOUTH DAILY 0 01/26/2017 04/25/2017 Inactive Chantix Starting Month Box 0.5 mg (11)-1 mg (42) table ts in dose pack RxNorm: 262692 Tablet(s) PO as directed 01/20/2017 01/28/2017 Inactive gabapentin 600 mg tablet RxNorm: 263795 1 Tablet(s) PO TID 01/21/20 17 02/22/2017 Inactive Chantix Continuing Month Box 1 mg tablet RxNorm: 180614 1 Table t(s) PO BID 12/31/2016 06/01/2017 Inactive Spiriva with HandiHaler 18 mcg and inhalation capsules RxNor m: 003469 INHALE THE ENTIRE CONTENTS OF 1 CAPSULE ONCE A DAY USING HANDIHALER 12/31/201607/2017 Inactive Synthroid 112 mcg tablet RxNorm: 755808 TAKE ONE TABLET BY MOUT H DAILY 12/30/2016 03/01/2017 Inactive metformin ER 500 mg tablet,extended release 24 hr RxNorm: 86 0975 TAKE ONE TABLET BY MOUTH DAILY 12/30/2016 03/01/2017 Inactive Premarin 0.45 mg tablet RxNorm: 306782 TAKE ONE TABLET BY MOUTH DAILY 12/30/2016 03/01/2017 Inactive omeprazole 40 mg capsule,delayed release RxNorm: 941041 TAKE ONE CAPSULE BY MOUTH DAILY 12/30/2016 01/25/2018 Inactive Ventolin HFA 90 mcg/actuation aerosol inhaler RxNorm: 393616 INHALE TWO PUFFS BY MOUTH EVERY 4 HOURS NEEDED 12/28/2016 02/13/2017 Inactive fluoxetine 40 mg capsule RxNorm: 220399 TAKE ONE CAPSULE BY BENOIT TH EVERY MORNING 12/15/2016 04/20/2017 Inactive Chantix Continuing Month Box 1 mg tablet RxNorm: 008479 TAKE ONE TABLET BY MOUTH TWICE A DAY 12/04/2016 12/31/2016 Inactive doxycycline hyclate 100 mg capsule RxNorm: 6535974 1 Capsule(s) PO BID 12/01/2016 12/07/2016 Inactive Levaquin 750 mg tablet RxNorm: 570892 1 Tablet(s) PO QD 12/01/2016 Inactive Abilify 2 mg tablet RxNorm: 081876 TAKE ONE TABLET BY MOUTH DAILY 0 11/25/2016 11/30/2016 Inactive Ventolin HFA 90 mcg/actuation aerosol inhaler RxNorm: 756800 INHALE TWO PUFFS BY MOUTH EVERY 4 HOURS NEEDED 11/02/2016 12/19/2016 Inactive Chantix Continuing Month Box 1 mg tablet RxNorm: 334512 Tablet(s) PO as directed 10/30/2016 12/03/2016 Inactive Symbicort 160 mcg-4.5 mcg/actuation HFA aerosol inhaler RxNo rm: 7791872 INHALE TWO PUFFS TWO TIMES A DAY 10/30/2016 03/30/2017 Inactive Abilify 2 mg tablet RxNorm: 774268 1 Tablet(s) PO QD 10/27/201611/24 Inactive amoxicillin 500 mg capsule RxNorm: 773766 1 Capsule(s) PO TID 10/1410/23/2016 Inactive amoxicillin 500 mg capsule RxNorm: 927634 1 Capsule(s) PO TID 10/1410/13/2016 Inactive Synthroid 112 mcg tablet RxNorm: 846706 TAKE ONE TABLET BY MOUT H DAILY 09/28/2016 12/29/2016 Inactive Topamax 100 mg tablet RxNorm: 048505 TAKE ONE TABLET BY MOUTH EVERY NIGHT AT BEDTIME 09/28/2016 01/28/2017 Inactive Premarin 0.45 mg tablet RxNorm: 113055 TAKE ONE TABLET BY MOUTH DAILY 09/28/2016 12/29/2016 Inactive metformin ER 500 mg tablet,extended release 24 hr RxNorm: 86 0975 TAKE ONE TABLET BY MOUTH DAILY 09/28/2016 12/29/2016 Inactive Ventolin HFA 90 mcg/actuation aerosol inhaler RxNorm: 783539 INHALE TWO PUFFS BY MOUTH EVERY 4 HOURS NEEDED 09/22/2016 10/23/2016 Inactive Pulmicort 1 mg/2 mL suspension for nebulization RxNorm: 6168 19 1 Unit Dose INH BID Dx: COPD (J44.9) 09/10/2016 08/16/2017 Inactive Pulmicort 1 mg/2 mL suspension for nebulization RxNorm: 6168 19 1 Unit Dose INH BID 09/10/2016 09/09/2016 Inactive Brovana 15 mcg/2 mL solution for nebulization RxNorm: 202914 1 Unit Dose INH BID Dx: COPD (J44.9) 09/10/2016 01/25/2018 Inactive Brovana 15 mcg/2 mL solution for nebulization RxNorm: 866973 1 Unit Dose INH BID 09/10/2016 09/09/2016 Inactive ipratropium-albuterol 0.5 mg-3 mg(2.5 mg base)/3 mL ne bulization soln RxNorm: 9296211 1 Unit Dose INH Q4H as needed Dx: COPD (J44.9) 09/10/2016 0 02/12/2019 Inactive orphenadrine citrate ER 100 mg tablet,extended release RxNor m: 612948 1 Tablet(s) PO BID for muscle spasm--replaces methocarbamol 09/09/2016 Inactive Chantix Continuing Month Box 1 mg tablet RxNorm: 588011 Tablet(s) PO as directed 09/09/2016 10/30/2016 Inactive orphenadrine citrate ER 100 mg tablet,extended release RxNor m: 368617 1 Tablet(s) PO BID for muscle spasm 09/09/2016 09/08/2016 Inactive Spiriva with HandiHaler 18 mcg and inhalation capsules RxNor m: 829458 INHALE THE ENTIRE CONTENTS OF 1 CAPSULE ONCE A DAY USING HANDIHALER 09/01/201605/2017 Inactive Daliresp 500 mcg tablet RxNorm: 4862401 1 Tablet(s) PO QD 08/27/2016 03/01/2017 Inactive prednisone 20 mg tablet RxNorm: 587232 3 Tablet(s) PO T ID for 3 days then 1 po BID for 3 days then one daily for 3 days 08/26/2016 04/28/2017 Inactiv e Wellbutrin XL 300 mg 24 hr tablet, extended release RxNorm: 975343 TAKE ONE TABLET BY MOUTH EVERY MORNING 07/29/2016 10/26/2016 Inactive gabapentin 600 mg tablet RxNorm: 348670 1 Tablet(s) PO BID 06/26/20 16 12/22/2016 Inactive fluoxetine 40 mg capsule RxNorm: 072905 TAKE ONE CAPSULE BY BENOIT TH EVERY MORNING 06/24/2016 11/20/2016 Inactive Duragesic 100 mcg/hr transdermal patch RxNorm: 301809 2 Application TD Q48H for pain 06/05/2016 07/04/2016 Inactive oxycodone 10 mg tablet RxNorm: 4520875 1-2 Tablet(s) PO QID as n eeded for pain 06/05/2016 03/17/2017 Inactive Belladonna-Phenobarbital 48 mg tablet,extended release RxNor m: 2 Tablet(s) PO TID 06/05/2016 01/19/2017 Inactive Premarin 0.45 mg tablet RxNorm: 295435 TAKE ONE TABLET BY MOUTH DAILY 05/27/2016 09/23/2016 Inactive Topamax 100 mg tablet RxNorm: 895437 TAKE ONE TABLET BY MOUTH EVERY NIGHT AT BEDTIME 05/27/2016 09/27/2016 Inactive Synthroid 112 mcg tablet RxNorm: 799225 TAKE ONE TABLET BY MOUT H DAILY 05/27/2016 09/23/2016 Inactive metformin ER 500 mg tablet,extended release 24 hr RxNorm: 86 0975 TAKE ONE TABLET BY MOUTH DAILY 05/27/2016 09/23/2016 Inactive Symbicort 160 mcg-4.5 mcg/actuation HFA aerosol inhaler RxNo rm: 2993091 INHALE TWO PUFFS TWO TIMES A DAY 05/27/2016 10/23/2016 Inactive Ventolin HFA 90 mcg/actuation aerosol inhaler RxNorm: 561619 INHALE TWO PUFFS BY MOUTH EVERY 4 HOURS NEEDED 05/21/2016 07/07/2016 Inactive omeprazole 40 mg capsule,delayed release RxNorm: 717621 1 Capsu le(s) PO QD 05/06/2016 08/03/2016 Inactive metformin ER 500 mg tablet,extended release 24 hr RxNorm: 86 0975 TAKE ONE TABLET BY MOUTH DAILY 04/23/2016 05/22/2016 Inactive methocarbamol 750 mg tablet RxNorm: 810535 2 Tablet(s) PO TID as needed for muscle spasm 04/23/2016 09/08/2016 Inactive Synthroid 112 mcg tablet RxNorm: 466278 TAKE ONE TABLET BY MOUT H DAILY 04/23/2016 05/22/2016 Inactive Spiriva with HandiHaler 18 mcg and inhalation capsules RxNor m: 081443 INHALE THE ENTIRE CONTENTS OF 1 CAPSULE ONCE A DAY USING HANDIHALER 04/09/201608/2016 Inactive Diflucan 100 mg tablet RxNorm: 202434 1 Tablet(s) PO QD 04/08/2016 Inactive doxycycline hyclate 100 mg capsule RxNorm: 3743310 1 Capsule(s) PO BID 04/08/2016 04/17/2016 Inactive doxycycline hyclate 100 mg capsule RxNorm: 9515299 1 Capsule(s) PO BID 04/08/2016 04/07/2016 Inactive Diflucan 100 mg tablet RxNorm: 247887 1 Tablet(s) PO QD 04/08/2016 Inactive ondansetron HCl 4 mg tablet RxNorm: 740690 1 Tablet(s) PO Q4H as needed for nausea and vomiting 04/08/2016 09/22/2017 Inactive gabapentin 600 mg tablet RxNorm: 975689 TAKE ONE TABLET BY MOUT H TWICE A DAY 03/24/2016 06/25/2016 Inactive Synthroid 112 mcg tablet RxNorm: 040540 TAKE ONE TABLET BY MOUT H DAILY 02/25/2016 04/22/2016 Inactive Levaquin 500 mg tablet RxNorm: 344260 1 Tablet(s) PO QD 01/23/2016 Inactive prednisone 20 mg tablet RxNorm: 576330 1 Tablet(s) PO T ID for 3 days then 1 po BID for 3 days then one daily for 3 days 01/23/2016 08/25/2016 Inactiv e TerraLUX Ultra Test strips RxNorm: TEST BLOOD SUGAR ONCE DAILY 250.00 01/09/2016 11/04/2017 Inactive methocarbamol 750 mg tablet RxNorm: 748433 2 Tablet(s) PO TID as needed for muscle spasm 01/09/2016 04/23/2016 Inactive lactulose 10 gram/15 mL oral solution RxNorm: 005055 [address](s) PO QD 01/09/2016 09/22/2017 Inactive TAKE 1 TABLESPOON BY MOUTH ONCE DAILY metformin ER 500 mg tablet,extended release 24 hr RxNorm: 86 0975 1 Tablet(s) PO QD 12/26/2015 04/22/2016 Inactive fluoxetine 20 mg capsule RxNorm: 267605 1 Capsule(s) PO QD 12/23/19 16 06/19/2016 Inactive Premarin 0.45 mg tablet RxNorm: 026048 TAKE ONE TABLET BY MOUTH DAILY 12/23/2015 05/20/2016 Inactive fluoxetine 40 mg capsule RxNorm: 139374 1 Capsule(s) PO QD 12/23/19 16 06/19/2016 Inactive TAKE ONE CAPSULE BY MOUTH EV JANKI MORNING azithromycin 500 mg tablet RxNorm: 094895 1 Tablet(s) PO QD 016 12/19/2015 Inactive Zofran 4 mg tablet RxNorm: 983522 1 Tablet(s) PO Q4H prn nausea /vomiting 12/13/2015 03/30/2018 Inactive azithromycin 500 mg tablet RxNorm: 084050 1 Tablet(s) PO QD 016 12/12/2015 Inactive Duragesic 100 mcg/hr transdermal patch RxNorm: 951074 2 Application TD Q48H for pain 12/09/2015 01/07/2016 Inactive oxycodone 10 mg tablet RxNorm: 5840417 1-2 Tablet(s) PO QID as n eeded for pain 12/09/2015 06/04/2016 Inactive Bactroban 2 % topical cream RxNorm: 909019 Application TOP BID 11/2208/25/2016 Inactive doxycycline hyclate 100 mg capsule RxNorm: 4153754 1 Capsule(s) PO BID 12/03/2015 12/12/2015 Inactive Topamax 100 mg tablet RxNorm: 871198 TAKE ONE TABLET BY MOUTH EVERY NIGHT AT BEDTIME 11/25/2015 05/22/2016 Inactive Symbicort 160 mcg-4.5 mcg/actuation HFA aerosol inhaler RxNo rm: 1234388 INHALE TWO PUFFS TWO TIMES A DAY 11/25/2015 05/22/2016 Inactive Synthroid 112 mcg tablet RxNorm: 334841 Tablet(s) TAKE ONE TABLET BY MOUTH DAILY 11/25/2015 02/22/2016 Inactive omeprazole 40 mg capsule,delayed release RxNorm: 809033 1 Capsu le(s) PO QD 11/12/2015 05/05/2016 Inactive oxycodone 10 mg tablet RxNorm: 3745411 1-2 Tablet(s) PO QID as n eeded for pain 11/05/2015 12/08/2015 Inactive Duragesic 100 mcg/hr transdermal patch RxNorm: 177683 2 Application TD Q48H for pain 11/05/2015 12/04/2015 Inactive omeprazole 40 mg capsule,delayed release RxNorm: 645854 1 Capsu le(s) PO QD 10/07/2015 11/11/2015 Inactive Januvia 100 mg tablet RxNorm: 853277 TAKE ONE TABLET BY MOUTH DAILY 09/11/2015 12/25/2015 Inactive Zithromax 500 mg tablet RxNorm: 850967 1 Tablet(s) PO QD 09/10/2015 1 Inactive prednisone 20 mg tablet RxNorm: 891694 1 Tablet(s) PO T ID for 3 days then 1 po BID for 3 days then one daily for 3 days 09/10/2015 08/25/2016 Inactiv e Wellbutrin XL 300 mg 24 hr tablet, extended release RxNorm: 669599 1 Tablet(s) PO QAM 09/10/2015 12/02/2015 Inactive Topamax 100 mg tablet RxNorm: 161654 TAKE ONE TABLET BY MOUTH EVERY NIGHT AT BEDTIME 09/02/2015 11/24/2015 Inactive Synthroid 112 mcg tablet RxNorm: 135224 TAKE ONE TABLET BY MOUT H DAILY 09/02/2015 11/25/2015 Inactive methocarbamol 750 mg tablet RxNorm: 892060 2 Tablet(s) PO TID as needed for muscle spasm 08/15/2015 01/09/2016 Inactive Wellbutrin XL 150 mg 24 hr tablet, extended release RxNorm: 019477 TAKE ONE TABLET BY MOUTH EVERY MORNING 08/13/2015 08/13/2015 Inactive gabapentin 600 mg tablet RxNorm: 833826 1 Tablet(s) PO BID 08/13/20 15 02/08/2016 Inactive Wellbutrin XL 300 mg 24 hr tablet, extended release RxNorm: 967921 1 Tablet(s) PO QAM 08/06/2015 09/09/2015 Inactive Wellbutrin XL 150 mg 24 hr tablet, extended release RxNorm: 448126 1 Tablet(s) PO QAM 07/18/2015 08/05/2015 Inactive prednisone 20 mg tablet RxNorm: 650386 1 Tablet(s) PO BID 07/18/2015 07/22/2015 Inactive doxycycline hyclate 100 mg tablet,delayed release RxNorm: 43 4018 1 Tablet(s) PO BID 07/18/2015 07/27/2015 Inactive pravastatin 40 mg tablet RxNorm: 703457 1 Tablet(s) PO QD NEEDS FASTING LAB 07/15/2015 07/14/2015 Inactive pravastatin 40 mg tablet RxNorm: 479223 1 Tablet(s) PO QD NEEDS FASTING LAB 07/15/2015 01/25/2018 Inactive Ventolin HFA 90 mcg/actuation aerosol inhaler RxNorm: 177117 2 Puff(s) INH Q4H 07/08/2015 07/07/2015 Inactive prn Premarin 0.45 mg tablet RxNorm: 075633 1 Tablet(s) PO QD 07/01/2015 0 12/22/2015 Inactive pravastatin 40 mg tablet RxNorm: 078286 1 Tablet(s) PO QD NEEDS FASTING LAB 06/14/2015 07/15/2015 Inactive Ventolin HFA 90 mcg/actuation aerosol inhaler RxNorm: 2131812 2 Puff(s) INH Q4H 06/06/2015 07/08/2015 Inactive prn albuterol sulfate 2.5 mg/3 mL (0.083 %) solution for n ebulization RxNorm: 677073 1 Unit Dose INH QID 05/30/2015 No Stop Date Active Duragesic 100 mcg/hr transdermal patch RxNorm: 160092 2 Application TD Q48H for pain 04/29/2015 05/28/2015 Inactive gabapentin 600 mg tablet RxNorm: 730258 1 Tablet(s) PO BID 04/11/20 15 08/13/2015 Inactive Onglyza 5 mg tablet RxNorm: 059763 1 Tablet(s) PO QD for blood suga r 04/10/2015 04/15/2015 Inactive [Brand Copay Card: RxBIN:[id number] PCN:CRISTIANA RxGRP:[id number] ID#:[id number]] methocarbamol 750 mg tablet RxNorm: 336525 2 Tablet(s) PO TID as needed for muscle spasm 03/28/2015 08/15/2015 Inactive pravastatin 40 mg tablet RxNorm: 119645 1 Tablet(s) PO QD 03/19/2015 03/18/2015 Inactive pravastatin 40 mg tablet RxNorm: 645068 1 Tablet(s) PO QD 03/19/2015 06/14/2015 Inactive lactulose 10 gram/15 mL oral solution RxNorm: 253113 [address]s) PO QD 03/07/2015 01/09/2016 Inactive TAKE 1 TABLESPOON BY MOUTH ONCE DAILY oxycodone 20 mg tablet RxNorm: 8616521 1 Tablet(s) PO QID as nee ded for pain 03/05/2015 07/08/2015 Inactive Topamax 100 mg tablet RxNorm: 563544 1 Tablet(s) PO QHS TAKE ONE TABLET BY MOUTH AT BEDTIME 02/25/2015 02/12/2019 Inactive metformin ER 500 mg tablet,extended release 24 hr RxNorm: 86 0975 1 Tablet(s) PO QD 02/11/2015 03/04/2015 Inactive take one tablet by mouth every day Daliresp 500 mcg tablet RxNorm: 3618777 1 Tablet(s) PO QD 02/11/2015 08/09/2015 Inactive Endocet 10 mg-325 mg tablet RxNorm: 1088633 1 Tablet(s) PO Q4H as needed for pain 01/23/2015 01/23/2015 Inactive gabapentin 600 mg tablet RxNorm: 037742 1 Tablet(s) PO BID 01/23/20 15 04/11/2015 Inactive methocarbamol 750 mg tablet RxNorm: 550891 2 Tablet(s) PO TID as needed for muscle spasm 01/15/2015 02/13/2015 Inactive fluoxetine 40 mg capsule RxNorm: 963716 1 Capsule(s) PO QD 01/14/20 15 12/23/2015 Inactive TAKE ONE CAPSULE BY MOUTH EV JANKI MORNING fluoxetine 20 mg capsule RxNorm: 102612 1 Capsule(s) PO QD 01/14/20 15 12/23/2015 Inactive Premarin 0.45 mg tablet RxNorm: 370071 1 Tablet(s) PO QD 01/02/2015 0 07/01/2015 Inactive Endocet 10 mg-325 mg tablet RxNorm: 4272827 1-2 Tablet(s) PO Q4H 02/12/2019 Inactive PRN PAIN Duragesic 100 mcg/hr transdermal patch RxNorm: 429279 2 Application TD Q48H for pain 12/25/2014 01/23/2015 Inactive Topamax 100 mg tablet RxNorm: 414732 1 Tablet(s) PO QHS TAKE ONE TABLET BY MOUTH AT BEDTIME 12/25/2014 02/24/2015 Inactive Tudorza Pressair 400 mcg/actuation breath activated RxNorm: 9158624 1 BID INHALE ONE PUFF INTO LUNGS TWO TIMES A DAY 12/17/2014 05/15/2015 Inactive Endocet 10 mg-325 mg tablet RxNorm: 4059005 1-2 Tablet(s) PO Q4H 12/19/2014 Inactive PRN PAIN Duragesic 100 mcg/hr transdermal patch RxNorm: 884699 2 Application TD Q48H for pain 11/20/2014 12/24/2014 Inactive OneTouch Ultra Test strips RxNorm: TEST BLOOD SUGAR ONCE DAILY 250.00 11/16/2014 01/08/2016 Inactive omeprazole 40 mg capsule,delayed release RxNorm: 693789 1 Capsu le(s) PO QD 11/13/2014 11/12/2015 Inactive metformin ER 500 mg tablet,extended release 24 hr RxNorm: 86 0975 1 Tablet(s) PO QD 11/12/2014 02/11/2015 Inactive take one tablet by mouth every day Symbicort 160 mcg-4.5 mcg/actuation HFA aerosol inhaler RxNo rm: 4496969 2 Puff(s) INH BID 11/12/2014 03/11/2015 Inactive INHALE 2 PUFFS O RALLY TWO TIMES A DAY gabapentin 800 mg tablet RxNorm: 802063 1 Tablet(s) PO QD TAKE ONE TABLET BY MOUTH ONCE A DAY 10/22/2014 01/01/2015 Inactive Endocet 10 mg-325 mg tablet RxNorm: 8123687 1-2 Tablet(s) PO Q4H 11/15/2014 Inactive PRN PAIN Duragesic 100 mcg/hr transdermal patch RxNorm: 452227 2 Application TD Q48H for pain 10/17/2014 11/19/2014 Inactive gabapentin 800 mg tablet RxNorm: 163873 1 Tablet(s) PO QD TAKE ONE TABLET BY MOUTH ONCE A DAY 10/04/2014 10/21/2014 Inactive Premarin 0.9 mg tablet RxNorm: 755668 1 Tablet(s) PO QD TAKE ONE TABLET BY MOUTH ONCE A DAY 10/04/2014 01/01/2015 Inactive Spiriva with HandiHaler 18 mcg & inhalation capsules RxNorm: 476774 1 Capsule(s) INH QD 10/03/2014 04/30/2015 Inactive Levaquin 500 mg tablet RxNorm: 979937 1 Tablet(s) PO QD 10/03/2014 Inactive prednisone 20 mg tablet RxNorm: 282591 1 Tablet(s) PO QD 10/03/2014 1 12/09/2013 Inactive Duragesic 100 mcg/hr transdermal patch RxNorm: 754184 2 Application TD Q48H for pain 09/18/2014 10/16/2014 Inactive Endocet 10 mg-325 mg tablet RxNorm: 5618465 1-2 Tablet(s) PO Q4H 10/16/2014 Inactive PRN PAIN Synthroid 112 mcg tablet RxNorm: 181925 1 Tablet(s) QD 09/10/2014 Inactive Synthroid 112 mcg tablet RxNorm: 925329 TAKE ONE TABLET BY MOUTH ONE TIME A DAY. NEEDS LABS 09/10/2014 02/06/2015 Inactive omeprazole 40 mg capsule,delayed release RxNorm: 812082 1 Capsu le(s) PO QD 09/03/2014 11/13/2014 Inactive omeprazole 40 mg capsule,delayed release RxNorm: 962857 1 Capsu le(s) PO QD 09/03/2014 09/02/2014 Inactive Spiriva with HandiHaler 18 mcg & inhalation capsules RxNorm: 400934 1 Capsule(s) INH QD 08/27/2014 10/02/2014 Inactive gabapentin 600 mg tablet RxNorm: 898944 1 Tablet(s) PO BID 08/27/20 14 10/22/2014 Inactive Endocet 10 mg-325 mg tablet RxNorm: 1059070 1-2 Tablet(s) PO Q4H 09/17/2014 Inactive PRN PAIN fentanyl 100 mcg/hr transdermal patch RxNorm: 675662 1 Unit Dos e TD QD 08/21/2014 09/19/2014 Inactive Daliresp 500 mcg tablet RxNorm: 3386685 1 Tablet(s) PO QD 08/13/2014 02/11/2015 Inactive Synthroid 112 mcg tablet RxNorm: 695765 TAKE ONE TABLET BY MOUTH ONE TIME A DAY. NEEDS LABS 08/10/2014 09/10/2014 Inactive Endocet 10 mg-325 mg tablet RxNorm: 6499553 1-2 Tablet(s) PO Q4H 08/17/2014 Inactive PRN PAIN Duragesic 100 mcg/hr transdermal patch RxNorm: 500398 2 Application TD Q48H for pain 07/19/2014 09/17/2014 Inactive fluoxetine 40 mg capsule RxNorm: 533452 1 Capsule(s) PO QD 07/17/20 14 01/14/2015 Inactive TAKE ONE CAPSULE BY MOUTH EV JANKI MORNING fluoxetine 20 mg capsule RxNorm: 566787 1 Capsule(s) PO QD 07/17/20 14 01/14/2015 Inactive Spiriva with HandiHaler 18 mcg & inhalation capsules RxNorm: 659425 1 Capsule(s) INH QD 07/17/2014 08/26/2014 Inactive INHALE CONTENTS OF 1 CAPSULE(S) WITH HANDIHALER ONCE DAILY Zofran 4 mg tablet RxNorm: 905860 1 Tablet(s) PO Q4H prn nausea 07/25/2014 Inactive Synthroid 112 mcg tablet RxNorm: 025422 1 Tablet(s) PO QD 07/09/2014 07/09/2014 Inactive methocarbamol 750 mg tablet RxNorm: 529093 2 Tablet(s) PO TID as needed for muscle spasm 07/09/2014 09/06/2014 Inactive Synthroid 112 mcg tablet RxNorm: 262276 1 Tablet(s) PO QD - nee d labs 07/09/2014 08/07/2014 Inactive Medrol (Aníbal) 4 mg tablets in a dose pack RxNorm: 654635 6 Tablet(s) PO QD --then as directed 07/03/2014 07/08/2014 Inactive Tudorza Pressair 400 mcg/actuation breath activated RxNorm: 5526744 1 Puff(s) INH BID 07/03/2014 12/17/2014 Inactive cefdinir 300 mg capsule RxNorm: 233794 1 Capsule(s) PO BID 07/03/20 14 07/12/2014 Inactive Topamax 100 mg tablet RxNorm: 351900 Tablet(s) TAKE ONE TABLET BY MOUTH AT BEDTIME 07/02/2014 02/25/2015 Inactive Duragesic 100 mcg/hr transdermal patch RxNorm: 890911 2 Application TD Q48H for pain 06/25/2014 07/18/2014 Inactive Endocet 10 mg-325 mg tablet RxNorm: 9133316 1-2 Tablet(s) PO Q4H 07/18/2014 Inactive PRN PAIN metformin ER 500 mg tablet,extended release 24 hr RxNorm: 86 0975 1 Tablet(s) PO QD Needs labs 06/18/2014 07/01/2014 Inactive take one tablet by mouth every day Duragesic 100 mcg/hr transdermal patch RxNorm: 687364 2 Application TD Q48H for pain 05/22/2014 06/24/2014 Inactive Synthroid 112 mcg tablet RxNorm: 384475 1 Tablet(s) PO QD 05/22/2014 07/09/2014 Inactive Endocet 10 mg-325 mg tablet RxNorm: 0336319 1-2 Tablet(s) PO Q4H 06/20/2014 Inactive PRN PAIN Endocet 10 mg-325 mg tablet RxNorm: 2364114 1-2 Tablet(s) PO Q4H 05/21/2014 Inactive PRN PAIN Duragesic 100 mcg/hr transdermal patch RxNorm: 899757 2 Application TD Q48H for pain 04/25/2014 05/21/2014 Inactive Daliresp 500 mcg tablet RxNorm: 1664028 1 Tablet(s) PO QD 04/24/2014 08/13/2014 Inactive Symbicort 160 mcg-4.5 mcg/actuation HFA aerosol inhaler RxNo rm: 3605521 2 Puff(s) INH BID 04/24/2014 08/21/2014 Inactive INHALE 2 PUFFS O RALLY TWO TIMES A DAY metformin ER 500 mg tablet,extended release 24 hr RxNorm: 86 0975 1 Tablet(s) PO QD 04/24/2014 11/12/2014 Inactive TAKE ONE TABLET BY MOUTH EVERY DAY [AttnRPh:Saving Apply/Adjudicate RxGRP:LDMGRP RxBIN:[id number] RxPCN:2012 PCode:01 ID#:[id number]] Symbicort 160 mcg-4.5 mcg/actuation HFA aerosol inhaler RxNo rm: [id number] 2 Puff(s) INH BID 04/24/2014 11/12/2014 Inactive INHALE 2 PUFFS O RALLY TWO TIMES A DAY Premarin 0.9 mg tablet RxNorm: 989890 1 Tablet(s) PO QD 04/24/2014 Inactive TAKE ONE TABLET BY MOUTH EVERY DAY metformin ER 500 mg tablet,extended release 24 hr RxNorm: 86 0975 1 Tablet(s) PO QD Needs labs 04/24/2014 06/18/2014 Inactive TAKE ONE TABLET BY MOUTH EVERY DAY [AttnRPh:Saving Apply/Adjudicate RxGRP:LDMGRP RxBIN:07563 RxPCN:2012 PCode:01 ID#:[id number]] gabapentin 800 mg tablet RxNorm: 008051 1 Tablet(s) PO QD 04/24/2014 10/04/2014 Inactive TAKE ONE TABLET BY MOUTH EVERY DAY Topamax 100 mg tablet RxNorm: 985699 1 Tablet(s) PO QHS 04/17/2014 Inactive Topamax 100 mg tablet RxNorm: 989804 TAKE ONE TABLET BY MOUTH A T BEDTIME 04/17/2014 07/01/2014 Inactive Tudorza Pressair 400 mcg/actuation breath activated RxNorm: 0852322 1 Puff(s) INH BID 04/11/2014 07/02/2014 Inactive Duragesic 100 mcg/hr transdermal patch RxNorm: 799663 2 Application TD Q48H for pain 03/27/2014 04/24/2014 Inactive Endocet 10 mg-325 mg tablet RxNorm: 5915587 1-2 Tablet(s) PO Q4H 04/24/2014 Inactive PRN PAIN Robaxin 750 mg tablet RxNorm: 557943 2 Tablet(s) PO TID as need ed for spasm 02/23/2014 03/28/2015 Inactive Duragesic 100 mcg/hr transdermal patch RxNorm: 618834 2 Application TD Q48H for pain 02/23/2014 No Stop Date Active Endocet 10 mg-325 mg tablet RxNorm: 9968514 1-2 Tablet(s) PO Q4H 03/23/2014 Inactive PRN PAIN Synthroid 112 mcg tablet RxNorm: 542167 1 Tablet(s) PO QD TAKE ONE TABLET BY MOUTH EVERY DAY 02/15/2014 05/22/2014 Inactive Zithromax 500 mg tablet RxNorm: 656144 1 Tablet(s) PO QD 01/30/2014 0 02/05/2014 Inactive Diflucan 100 mg tablet RxNorm: 764139 1 Tablet(s) PO QD 01/30/2014 Inactive prednisone 20 mg tablet RxNorm: 937207 1 Tablet(s) PO BID 01/30/2014 02/05/2014 Inactive fluoxetine 40 mg capsule RxNorm: 733603 1 Capsule(s) PO QD 01/23/20 14 07/16/2014 Inactive TAKE ONE CAPSULE BY MOUTH EV JANKI MORNING fluoxetine 40 mg capsule RxNorm: 979112 1 Capsule(s) PO QD 01/23/20 14 07/17/2014 Inactive TAKE ONE CAPSULE BY MOUTH EV JANKI MORNING cefdinir 300 mg capsule RxNorm: 295060 1 Capsule(s) PO BID 01/16/20 14 01/29/2014 Inactive Zithromax 500 mg tablet RxNorm: 257141 1 Tablet(s) PO QD 01/16/2014 0 01/22/2014 Inactive prednisone 20 mg tablet RxNorm: 910288 1 Tablet(s) PO BID 01/16/2014 01/22/2014 Inactive Spiriva with HandiHaler 18 mcg and inhalation capsules RxNor m: 470334 1 Capsule(s) INH QD 12/18/2013 07/17/2014 Inactive INHALE CONTENT S OF 1 CAPSULE(S) WITH HANDIHALER ONCE DAILY fluoxetine 20 mg capsule RxNorm: 545012 1 Capsule(s) PO QD 12/18/19 14 06/15/2014 Inactive Spiriva with HandiHaler 18 mcg & inhalation capsules RxNorm: 728060 1 Capsule(s) INH QD 12/18/2013 06/15/2014 Inactive INHALE CONTENTS OF 1 CAPSULE(S) WITH HANDIHALER ONCE DAILY fluoxetine 20 mg capsule RxNorm: 245693 1 Capsule(s) PO QD 12/18/19 14 07/17/2014 Inactive cefdinir 300 mg capsule RxNorm: 645136 2 Capsule(s) PO QD 12/12/2013 12/21/2013 Inactive Duragesic 100 mcg/hr transdermal patch RxNorm: 908105 2 Application TD Q48H for pain 12/08/2013 12/07/2013 Inactive Topamax 100 mg tablet RxNorm: 068293 1 Tablet(s) PO QHS 12/04/2013 Inactive Endocet 10 mg-325 mg tablet RxNorm: 8315596 1-2 Tablet(s) PO Q4H 12/26/2013 Inactive PRN PAIN Robaxin 750 mg tablet RxNorm: 626094 2 Tablet(s) PO TID as need ed for spasm 11/07/2013 01/05/2014 Inactive gabapentin 800 mg tablet RxNorm: 785678 1 Tablet(s) PO QD 10/16/2013 04/24/2014 Inactive TAKE ONE TABLET BY MOUTH EVERY DAY Symbicort 160 mcg-4.5 mcg/actuation HFA aerosol inhaler RxNo rm: 6957394 2 Puff(s) INH BID 10/16/2013 04/24/2014 Inactive INHALE 2 PUFFS O RALLY TWO TIMES A DAY Premarin 0.9 mg tablet RxNorm: 307003 1 Tablet(s) PO QD 10/16/2013 Inactive TAKE ONE TABLET BY MOUTH EVERY DAY metformin ER 500 mg tablet,extended release 24 hr RxNorm: 86 0975 1 Tablet(s) PO QD 10/16/2013 04/24/2014 Inactive TAKE ONE TABLET BY MOUTH EVERY DAY Daliresp 500 mcg tablet RxNorm: 6891958 1 Tablet(s) PO QD 10/16/2013 04/24/2014 Inactive Robaxin 750 mg tablet RxNorm: 204726 2 Tablet(s) PO TID as need ed for spasm 10/10/2013 11/06/2013 Inactive Duragesic 100 mcg/hr transdermal patch RxNorm: 271402 2 Application TD Q48H for pain 10/09/2013 No Stop Date Active Soma 350 mg tablet RxNorm: 450624 1 Tablet(s) PO TID 09/27/201310/09 Inactive TAKE ONE TABLET BY MOUTH THREE TIMES A D AY lactulose 10 gram/15 mL oral solution RxNorm: 200911 [address](s) PO QD 09/13/2013 03/07/2015 Inactive TAKE 1 TABLESPOON BY MOUTH ONCE DAILY Duragesic 100 mcg/hr transdermal patch RxNorm: 504678 2 Application TD Q48H for pain 09/06/2013 No Stop Date Active Endocet 10 mg-325 mg tablet RxNorm: 3796892 1-2 Tablet(s) PO Q4H 09/27/2013 Inactive PRN PAIN lancets 28 gauge RxNorm: Miscellaneous As needed for blo od glucose sticks 08/24/2013 No Stop Date Active 16.2 mg-0.1037 mg-0.0194 mg tablet RxNorm: 1172613 Tablet(s) PO PRN for gas and cramping 08/24/2013 01/19/2017 Inactive TAKE TWO TABLET S BY MOUTH THREE TIMES A DAY NEEDED FOR GAS AND CRAMPING Topamax 100 mg tablet RxNorm: 881183 1 Tablet(s) PO QHS 07/31/2013 Inactive Diflucan 100 mg tablet RxNorm: 865518 1 Tablet(s) PO QD 07/27/2013 Inactive cefdinir 300 mg capsule RxNorm: 559175 1 Capsule(s) PO BID 07/26/20 13 08/08/2013 Inactive Daliresp 500 mcg tablet RxNorm: 5242006 1 Tablet(s) PO QD 07/25/2013 10/15/2013 Inactive fluoxetine 40 mg capsule RxNorm: 512463 1 Capsule(s) PO QD 07/25/20 13 01/22/2014 Inactive TAKE ONE CAPSULE BY MOUTH EV JANKI MORNING Senokot-S 8.6 mg-50 mg tablet RxNorm: 1213842 1 Tablet(s) PO BID 10/25/2013 Inactive doxycycline hyclate 100 mg capsule RxNorm: 5926195 1 Capsule(s) PO BID 06/28/2013 07/07/2013 Inactive prednisone 20 mg tablet RxNorm: 038675 1 Tablet(s) PO BID 06/28/2013 07/04/2013 Inactive Zofran 4 mg tablet RxNorm: 063903 1 Tablet(s) PO Q4H prn nausea 03/201307/05/2013 Inactive Spiriva with HandiHaler 18 mcg & inhalation capsules RxNorm: 829075 1 Capsule(s) INH QD 06/26/2013 12/18/2013 Inactive INHALE CONTENTS OF 1 CAPSULE(S) WITH HANDIHALER ONCE DAILY Synthroid 112 mcg tablet RxNorm: 195865 1 Tablet(s) PO QD TAKE ONE TABLET BY MOUTH EVERY DAY 06/19/2013 02/15/2014 Inactive fluoxetine 20 mg capsule RxNorm: 350199 1 Capsule(s) PO QD 06/19/20 13 12/18/2013 Inactive Ventolin HFA 90 mcg/actuation Aerosol Inhaler RxNorm: 1757951 2 Puff(s) INH Q4H 06/05/2013 No Stop Date Active prn Soma 350 mg tablet RxNorm: 819056 1 Tablet(s) PO TID 06/05/201307/04 Inactive TAKE ONE TABLET BY MOUTH THREE TIMES A D AY prednisone 20 mg tablet RxNorm: 018438 1 Tablet(s) PO QD 05/31/2013 0 06/06/2013 Inactive Topamax 100 mg tablet RxNorm: 734075 1 Tablet(s) PO QHS 05/22/2013 Inactive Levaquin 500 mg tablet RxNorm: 137783 1 Tablet(s) PO QD 05/03/2013 Inactive Diflucan 100 mg tablet RxNorm: 995933 1 Tablet(s) PO QD 05/03/2013 Inactive Daliresp 500 mcg tablet RxNorm: 6285757 1 Tablet(s) PO QD 05/01/2013 07/24/2013 Inactive Daliresp 500 mcg tablet RxNorm: 7687625 1 Tablet(s) PO QD 05/01/2013 04/30/2013 Inactive gabapentin 800 mg tablet RxNorm: 621708 1 Tablet(s) PO QD 04/10/2013 10/06/2013 Inactive TAKE ONE TABLET BY MOUTH EVERY DAY metformin ER 500 mg tablet,extended release 24 hr RxNorm: 86 0977 1 Tablet(s) PO QD 04/10/2013 10/06/2013 Inactive TAKE ONE TABLET BY MOUTH EVERY DAY Premarin 0.9 mg tablet RxNorm: 955610 1 Tablet(s) PO QD 04/10/2013 Inactive TAKE ONE TABLET BY MOUTH EVERY DAY Symbicort 160 mcg-4.5 mcg/actuation HFA aerosol inhaler RxNo rm: 4123558 2 Puff(s) INH BID 04/10/2013 10/06/2013 Inactive INHALE 2 PUFFS O RALLY TWO TIMES A DAY Synthroid 112 mcg tablet RxNorm: 284114 1 Tablet(s) PO QD TAKE ONE TABLET BY MOUTH EVERY DAY 04/10/2013 06/18/2013 Inactive Ventolin HFA 90 mcg/actuation Aerosol Inhaler RxNorm: 9606803 2 Puff(s) INH Q4H 04/10/2013 No Stop Date Active prn fentanyl 100 mcg/hr transdermal patch RxNorm: 415403 1 Unit Dos e TD QD 04/03/2013 05/02/2013 Inactive Endocet 10 mg-325 mg tablet RxNorm: 9392550 1-2 Tablet(s) PO Q4H 05/02/2013 Inactive PRN PAIN Topamax 100 mg tablet RxNorm: 846569 1 Tablet(s) PO QHS 03/13/2013 Inactive Reglan 10 mg tablet RxNorm: 196062 1 Tablet(s) PO QID b efore meals and at bedtime 03/13/2013 04/09/2015 Inactive fluoxetine 20 mg capsule RxNorm: 547667 1 Capsule(s) PO QD 02/28/20 13 05/27/2013 Inactive Ventolin HFA 90 mcg/actuation Aerosol Inhaler RxNorm: 7853412 2 Puff(s) INH Q4H 02/13/2013 No Stop Date Active prn fluoxetine 40 mg capsule RxNorm: 440326 1 Capsule(s) PO QD 01/31/20 13 07/24/2013 Inactive TAKE ONE CAPSULE BY MOUTH EV JANKI MORNING Soma 350 mg tablet RxNorm: 938763 1 Tablet(s) PO TID 01/20/201302/18 Inactive TAKE ONE TABLET BY MOUTH THREE TIMES A D AY Endocet 10 mg-325 mg tablet RxNorm: 0129645 1-2 Tablet(s) PO Q4H 02/06/2013 Inactive PRN PAIN MS Contin 200 mg tablet,extended release RxNorm: 219090 1 Table t(s) PO BID 01/18/2013 02/06/2013 Inactive Ventolin HFA 90 mcg/actuation Aerosol Inhaler RxNorm: 2937273 2 Puff(s) INH Q4H 01/04/2013 No Stop Date Active prn Spiriva with HandiHaler 18 mcg & inhalation capsules RxNorm: 617326 1 Capsule(s) INH QD 12/29/2012 06/25/2013 Inactive INHALE CONTENTS OF 1 CAPSULE(S) WITH HANDIHALER ONCE DAILY Spiriva with HandiHaler 18 mcg & inhalation capsules RxNorm: 084959 1 Capsule(s) INH QD 12/26/2012 12/28/2012 Inactive INHALE CONTENTS OF 1 CAPSULE(S) WITH HANDIHALER ONCE DAILY Synthroid 112 mcg tablet RxNorm: 825796 Tablet(s) PO TA KE ONE TABLET BY MOUTH EVERY DAY 12/26/2012 04/09/2013 Inactive Endocet 10 mg-325 mg tablet RxNorm: 2334544 1-2 Tablet(s) PO Q4H 01/17/2013 Inactive PRN PAIN MS Contin 200 mg tablet,extended release RxNorm: 355657 1 Table t(s) PO BID 12/21/2012 01/17/2013 Inactive fluoxetine 20 mg capsule RxNorm: 902904 1 Capsule(s) PO QD 12/06/19 13 02/26/2013 Inactive Synthroid 112 mcg tablet RxNorm: 958155 1 Tablet(s) PO QD 12/06/2012 02/12/2019 Inactive TAKE ONE TABLET BY MOUTH EVERY DAY Ventolin HFA 90 mcg/actuation Aerosol Inhaler RxNorm: 4181007 2 Puff(s) INH Q4H 12/06/2012 No Stop Date Active prn Reglan 10 mg tablet RxNorm: 916091 1 Tablet(s) PO QID b efore meals and at bedtime 11/24/2012 03/12/2013 Inactive Topamax 100 mg tablet RxNorm: 632304 1 Tablet(s) PO QHS 11/16/2012 Inactive Ventolin HFA 90 mcg/actuation Aerosol Inhaler RxNorm: 6051075 2 Puff(s) INH Q4H 11/09/2012 No Stop Date Active prn gabapentin 800 mg tablet RxNorm: 008021 1 Tablet(s) PO QD 10/27/2012 04/09/2013 Inactive TAKE ONE TABLET BY MOUTH EVERY DAY metformin ER 500 mg tablet,extended release 24 hr RxNorm: 86 0977 1 Tablet(s) PO QD 10/27/2012 04/09/2013 Inactive TAKE ONE TABLET BY MOUTH EVERY DAY Symbicort 160 mcg-4.5 mcg/actuation HFA Aerosol Inhaler RxNo rm: 8972668 2 Puff(s) INH BID 10/27/2012 04/09/2013 Inactive INHALE 2 PUFFS O RALLY TWO TIMES A DAY Premarin 0.9 mg tablet RxNorm: 000026 1 Tablet(s) PO QD 10/27/2012 Inactive TAKE ONE TABLET BY MOUTH EVERY DAY Endocet 10 mg-325 mg tablet RxNorm: 8627586 1-2 Tablet(s) PO Q4H 11/24/2012 Inactive PRN PAIN MS Contin 200 mg tablet,extended release RxNorm: 405407 1 Table t(s) PO BID 10/26/2012 11/24/2012 Inactive Soma 350 mg tablet RxNorm: 774424 1 Tablet(s) PO TID 10/04/201211/02 Inactive TAKE ONE TABLET BY MOUTH THREE TIMES A D AY Ventolin HFA 90 mcg/actuation Aerosol Inhaler RxNorm: 8523862 2 Puff(s) INH Q4H 10/03/2012 No Stop Date Active prn Daliresp 500 mcg tablet RxNorm: 1237845 1 Tablet(s) PO QD 09/28/2012 09/27/2012 Inactive Daliresp 500 mcg tablet RxNorm: 7692766 1 Tablet(s) PO QD 09/28/2012 04/25/2013 Inactive fluoxetine 20 mg capsule RxNorm: 211476 1 Capsule(s) PO QD 09/05/2012/06/2012 Inactive Topamax 50 mg tablet RxNorm: 929519 Tablet(s) PO for 1w k then 1 po q HS for 1wk then 2 po q HS 08/29/2012 09/27/2012 Inactive TAKE 1/2 TABLET BY MOUTH AT BEDTIME FOR 1 WEEK, THEN 1 TABLET AT BEDTIME FOR 1 WEEK, THEN 2 TABLETS AT BEDTIME Topamax 100 mg tablet RxNorm: 288164 1 Tablet(s) PO QHS 08/29/2012 Inactive Ventolin HFA 90 mcg/actuation Aerosol Inhaler RxNorm: 9367596 2 Puff(s) INH Q4H 08/19/2012 No Stop Date Active prn Ventolin HFA 90 mcg/actuation Aerosol Inhaler RxNorm: 5993594 2 Puff(s) INH Q4H 08/15/2012 No Stop Date Active prn Synthroid 112 mcg tablet RxNorm: 546711 1 Tablet(s) PO QD 08/10/2012 11/07/2012 Inactive TAKE ONE TABLET BY MOUTH EVERY DAY Synthroid 112 mcg tablet RxNorm: 176145 1 Tablet(s) PO QD 08/01/2012 08/09/2012 Inactive TAKE ONE TABLET BY MOUTH EVERY DAY Reglan 10 mg tablet RxNorm: 445644 1 Tablet(s) PO QID b efore meals and at bedtime 08/01/2012 11/23/2012 Inactive fluoxetine 40 mg capsule RxNorm: 600865 1 Capsule(s) PO QD 08/01/2001/27/2013 Inactive TAKE ONE CAPSULE BY MOUTH EV JANKI MORNING Ventolin HFA 90 mcg/actuation Aerosol Inhaler RxNorm: 8400742 2 Puff(s) INH Q4H 08/01/2012 No Stop Date Active prn Soma 350 mg tablet RxNorm: 593665 1 Tablet(s) PO TID 07/20/201208/18 Inactive TAKE ONE TABLET BY MOUTH THREE TIMES A D AY Spiriva with HandiHaler 18 mcg & inhalation capsules RxNorm: 479591 1 Capsule(s) INH 07/01/2012 12/25/2012 Inactive INHALE CONTENTS OF 1 CAPSULE(S) WITH HANDIHALER ONCE DAILY Zithromax 250 mg Tab RxNorm: 867910 2 Tablet(s) PO QD 06/28/201206/22 Inactive MS Contin 200 mg tablet,extended release RxNorm: 697445 1 Table t(s) PO BID 06/28/2012 07/27/2012 Inactive Endocet 10 mg-325 mg tablet RxNorm: 4380760 1-2 Tablet(s) PO Q4H 07/27/2012 Inactive PRN PAIN Topamax 100 mg tablet RxNorm: 824926 1 Tablet(s) PO QHS 06/28/2012 Inactive 16.2 mg-0.1037 mg-0.0194 mg tablet RxNorm: 3801014 Tablet(s) PO PRN for gas and cramping 06/08/2012 08/23/2013 Inactive TAKE TWO TABLET S BY MOUTH THREE TIMES A DAY NEEDED FOR GAS AND CRAMPING Ventolin HFA 90 mcg/actuation Aerosol Inhaler RxNorm: 4605460 2 Puff(s) INH Q4H 05/23/2012 No Stop Date Active prn Ventolin HFA 90 mcg/actuation Aerosol Inhaler RxNorm: 6825155 2 Puff(s) INH Q4H 05/11/2012 No Stop Date Active prn Synthroid 112 mcg tablet RxNorm: 508588 1 Tablet(s) PO QD 05/09/2012 07/31/2012 Inactive TAKE ONE TABLET BY MOUTH EVERY DAY gabapentin 800 mg tablet RxNorm: 942370 1 Tablet(s) PO QD 05/09/2012 10/26/2012 Inactive TAKE ONE TABLET BY MOUTH EVERY DAY fluoxetine 40 mg capsule RxNorm: 855666 1 Capsule(s) PO QD 05/09/2007/31/2012 Inactive TAKE ONE CAPSULE BY MOUTH EV JANKI MORNING metformin ER 500 mg tablet,extended release 24 hr RxNorm: 86 0977 1 Tablet(s) PO QD 05/09/2012 10/26/2012 Inactive TAKE ONE TABLET BY MOUTH EVERY DAY Premarin 0.9 mg tablet RxNorm: 958848 1 Tablet(s) PO QD 05/09/2012 Inactive TAKE ONE TABLET BY MOUTH EVERY DAY Symbicort 160 mcg-4.5 mcg/actuation HFA Aerosol Inhaler RxNo rm: 8222497 2 Puff(s) INH BID 05/09/2012 10/26/2012 Inactive INHALE 2 PUFFS O RALLY TWO TIMES A DAY Endocet 10 mg-325 mg Tab RxNorm: 4489318 1-2 Tablet(s) PO Q4H 04/2705/26/2012 Inactive PRN PAIN MS Contin 200 mg Tab RxNorm: 125722 1 Tablet(s) PO BID 04/26/201202/2012 Inactive Ventolin HFA 90 mcg/actuation Aerosol Inhaler RxNorm: 2122899 2 Puff(s) INH Q4H 04/25/2012 05/10/2012 Inactive prn Soma 350 mg tablet RxNorm: 602415 2 Tablet(s) PO TID 04/19/201207/19 Inactive TAKE ONE TABLET BY MOUTH THREE TIMES A D AY Ventolin HFA 90 mcg/actuation Aerosol Inhaler RxNorm: 4354972 2 Puff(s) INH Q4H 04/12/2012 04/24/2012 Inactive prn Reglan 10 mg tablet RxNorm: 618612 1 Tablet(s) PO QID b efore meals and at bedtime 04/11/2012 07/31/2012 Inactive MS Contin 200 mg Tab RxNorm: 461457 1 Tablet(s) PO BID 03/30/201202/2012 Inactive Endocet 10 mg-325 mg Tab RxNorm: 9202894 1-2 Tablet(s) PO Q4H 03/3004/26/2012 Inactive PRN PAIN MS Contin 200 mg Tab RxNorm: 352132 1 Tablet(s) PO BID 03/02/201206/2012 Inactive Endocet 10 mg-325 mg Tab RxNorm: 4291807 1-2 Tablet(s) PO Q4H 03/0203/29/2012 Inactive PRN PAIN Daliresp 500 mcg tablet RxNorm: 9856319 1 Tablet(s) PO QD 03/01/2012 09/28/2012 Inactive MS Contin 200 mg Tab RxNorm: 781394 1 Tablet(s) PO BID 02/02/201208/2012 Inactive Endocet 10 mg-325 mg Tab RxNorm: 3073411 1-2 Tablet(s) PO Q4H 02/0103/01/2012 Inactive PRN PAIN fluoxetine 40 mg capsule RxNorm: 590067 1 Capsule(s) PO QD 02/02/2008/01/2012 Inactive TAKE ONE CAPSULE BY MOUTH EV JANKI MORNING Synthroid 112 mcg Tab RxNorm: 463710 1 Tablet(s) PO QD 01/18/2012 Inactive TAKE ONE TABLET BY MOUTH EVERY DAY lactulose 10 gram/15 mL oral solution RxNorm: 724015 [address]s) PO QD 01/18/2012 No Stop Date Active TAKE 1 TABLESPOON BY MOUTH ONCE DAILY Ventolin HFA 90 mcg/actuation Aerosol Inhaler RxNorm: 4967519 2 Puff(s) INH Q4H 01/18/2012 04/11/2012 Inactive prn MS Contin 200 mg Tab RxNorm: 548937 1 Tablet(s) PO BID 01/05/201210/2012 Inactive Endocet 10 mg-325 mg Tab RxNorm: 9042642 1-2 Tablet(s) PO Q4H 01/0502/01/2012 Inactive PRN PAIN ProAir HFA 90 mcg/Actuation Aerosol Inhaler RxNorm: 5693500 2 Pu ff(s) INH Q4H 12/21/2011 No Stop Date Active prn for wheezing or shortness of breath Spiriva with HandiHaler 18 mcg & inhalation Caps RxNorm: 580 261 1 Capsule(s) INH 12/21/2011 06/30/2012 Inactive INHALE CONTENTS OF 1 CAPSULE(S) WITH HANDIHALER ONCE DAILY Reglan 10 mg Tab RxNorm: 098140 1 Tablet(s) PO QID before meals and at bedtime 12/21/2011 04/10/2012 Inactive Synthroid 112 mcg Tab RxNorm: 618928 1 Tablet(s) PO QD 12/21/2011 Inactive TAKE ONE TABLET BY MOUTH EVERY DAY Endocet 10 mg-325 mg Tab RxNorm: 3505931 1-2 Tablet(s) PO Q4H 11/2512/24/2011 Inactive PRN PAIN MS Contin 200 mg Tab RxNorm: 638243 1 Tablet(s) PO BID 11/25/201112/2011 Inactive lactulose 10 gram/15 mL Oral Soln RxNorm: 064394 Milliliter(s) PO 1 No Stop Date Active TAKE 1 TABLESPOON BY MOUTH O NCE DAILY lactulose 10 gram/15 mL Oral Soln RxNorm: 425907 Milliliter(s) PO 1 12/12/2010 11/20/2011 Inactive TAKE 1 TABLESPOON BY MOUTH O NCE DAILY Premarin 0.9 mg Tab RxNorm: 685482 1 Tablet(s) PO QD 10/12/201105/08 Inactive TAKE ONE TABLET BY MOUTH EVERY DAY fluoxetine 20 mg capsule RxNorm: 125905 1 Capsule(s) PO QD 10/12/20 11 09/05/2012 Inactive TAKE ONE CAPSULE BY MOUTH EV JANKI DAY Synthroid 112 mcg Tab RxNorm: 163762 1 Tablet(s) PO QD 10/12/2011 Inactive TAKE ONE TABLET BY MOUTH EVERY DAY metformin ER 500 mg 24 hr Tab RxNorm: 743787 1 Tablet(s) PO QD 09/2311/10/2011 Inactive TAKE ONE TABLET BY MOUTH GLYNN RY DAY Synthroid 112 mcg Tab RxNorm: 360388 1 Tablet(s) PO QD 10/12/2011 Inactive TAKE ONE TABLET BY MOUTH EVERY DAY metformin ER 500 mg 24 hr Tab RxNorm: 665268 1 Tablet(s) PO QD 09/2310/11/2011 Inactive TAKE ONE TABLET BY MOUTH GLYNN RY DAY Prevacid 30 mg Cap RxNorm: 149493 Capsule(s) PO 10/12/2011 01/25/2012 Inactive TAKE ONE CAPSULE BY MOUTH EVERY DAY Symbicort 160 mcg-4.5 mcg/actuation HFA Aerosol Inhaler RxNo rm: 9784821 2 Puff(s) INH BID 10/12/2011 05/08/2012 Inactive INHALE 2 PUFFS O RALLY TWO TIMES A DAY gabapentin 800 mg Tab RxNorm: 035879 1 Tablet(s) PO QD 10/12/2011 Inactive TAKE ONE TABLET BY MOUTH EVERY DAY MS Contin 200 mg Tab RxNorm: 464589 1 Tablet(s) PO BID 09/23/201111/2010 Inactive Endocet 10 mg-325 mg Tab RxNorm: 9700506 1-2 Tablet(s) PO Q4H 09/2310/22/2011 Inactive PRN PAIN Endocet 10 mg-325 mg Tab RxNorm: 0916998 1-2 Tablet(s) PO Q4H 08/2109/19/2011 Inactive PRN PAIN MS Contin 200 mg Tab RxNorm: 485976 1 Tablet(s) PO BID 08/21/2011 Inactive Diflucan 100 mg Tab RxNorm: 888943 1 Tablet(s) PO QD 08/10/201108/16 Inactive cefdinir 300 mg Cap RxNorm: 325073 2 Capsule(s) PO QD 08/10/201107/24 Inactive Reglan 10 mg Tab RxNorm: 649729 1 Tablet(s) PO AC & HS 07/15/2011 Inactive Endocet 10 mg-325 mg Tab RxNorm: 8011389 1-2 Tablet(s) PO Q4H 07/1508/13/2011 Inactive PRN PAIN One Touch Ultra Test strips RxNorm: Miscellaneous BID 06/11/2011 1 01/16/2014 Inactive TEST TWO TIMES A DAY lactulose 10 gram/15 mL Oral Soln RxNorm: 817650 Milliliter(s) PO 0 06/10/2011 10/11/2011 Inactive TAKE 1 TABLESPOON BY MOUTH O NCE DAILY Chantix Continuing Month Aníbal 1 mg Tab RxNorm: 365387 Tablet(s) PO 0 06/10/2011 11/02/2011 Inactive TAKE DIRECTED - PER PACKA GE INSTRUCTIONS fluoxetine 40 mg Cap RxNorm: 323808 Capsule(s) PO 06/10/2011 02/02/20 12 Inactive TAKE ONE CAPSULE BY MOUTH EVERY MORNING Chantix Continuing Month Aníbal 1 mg Tab RxNorm: 906949 Ta blet(s) PO TAKE DIRECTED - PER PACKAGE INSTRUCTIONS 05/13/2011 06/09/2011 Inactive Soma 350 mg Tab RxNorm: 119510 Tablet(s) PO TAKE ON E TABLET BY MOUTH THREE TIMES A DAY 05/13/2011 04/18/2012 Inactive Chantix Continuing Month Aníbal 1 mg Tab RxNorm: 119980 Ta blet(s) PO as directed per package instructions. 04/22/2011 05/12/2011 Inactive Symbicort 160 mcg-4.5 mcg/Actuation HFA Aerosol Inhaler RxNo rm: 5504207 HFA Aerosol Inhaler INH INHALE 2 PUFFS ORALLY TWO TIMES A DAY 04/13/2011 Inactive Synthroid 112 mcg Tab RxNorm: 224665 Tablet(s) PO TAKE ONE TABLET BY MOUTH EVERY DAY 04/13/2011 10/12/2011 Inactive Premarin 0.9 mg Tab RxNorm: 303962 Tablet(s) PO TAKE ON E TABLET BY MOUTH EVERY DAY 04/13/2011 10/12/2011 Inactive gabapentin 800 mg Tab RxNorm: 260668 Tablet(s) PO TAKE ONE TABLET BY MOUTH EVERY DAY 04/13/2011 10/12/2011 Inactive Prevacid 30 mg Cap RxNorm: 734496 1 Capsule(s) PO QD 04/13/201110/11 Inactive Spiriva with HandiHaler 18 mcg & inhalation Caps RxNorm: 580 261 Capsule(s) INH INHALE CONTENTS OF 1 CAPSULE(S) WITH HANDIHALER ONCE DAILY 04/13/2011 12/21/2011 Inactive metformin ER 500 mg 24 hr Tab RxNorm: 400922 Tablet(s) PO TAKE ONE TABLET BY MOUTH EVERY DAY 04/13/2011 10/12/2011 Inactive Soma 350 mg Tab RxNorm: 534108 1 Tablet(s) PO QID 03/30/2011 02/13/20 19 Inactive fluoxetine 20 mg Cap RxNorm: 946022 Capsule(s) PO TAKE ONE CAPSULE BY MOUTH EVERY DAY 03/25/2011 10/12/2011 Inactive cefdinir 300 mg Cap RxNorm: 887357 2 Capsule(s) PO QD 03/19/201105/2011 Inactive 16.2 mg-0.1037 mg-0.0194 mg Tab RxNorm: 1898826 2 Tablet(s) PO TID PRN for gas and cramping 03/16/2011 07/13/2011 Inactive Soma 350 mg Tab RxNorm: 607225 2 Tablet(s) PO TID 03/16/2011 03/29/20 11 Inactive Chantix Starting Month Aníbal 0.5 mg (11)-1 mg (3x14) Tab s in a Dose Pack RxNorm: 932576 Tablet(s) PO as directed 03/02/2011 No Stop Date Active diazepam 10 mg Tab RxNorm: 373195 1 Tablet(s) PO BID 02/10/201101/19 Inactive Zofran 4 mg tablet RxNorm: 302971 1 Tablet(s) PO Q4H prn nausea 02/16/2011 Inactive Diflucan 100 mg Tab RxNorm: 611655 1 Tablet(s) PO QD 01/18/201101/24 Inactive Premarin 0.625 mg/g Vaginal Cream RxNorm: 818823 VAG In sert 1gm vaginally at bedtime 3 times weekly 01/18/2011 02/12/2019 Inactive loratadine 10 mg Tab RxNorm: 610891 1 Tablet(s) PO QD 12/17/201003/2012 Inactive Spiriva with HandiHaler 18 mcg & inhalation Caps RxNorm: 580 261 1 Capsule(s) INH QD 12/17/2010 04/12/2011 Inactive Diflucan 100 mg Tab RxNorm: 075478 1 Tablet(s) PO QD 12/17/201012/23 Inactive diazepam 10 mg Tab RxNorm: 514605 1 Tablet(s) PO BID and PRN 201002/12/2019 Inactive One Touch Ultra Test Strips RxNorm: InVt BID Zainab t blood sugar at least twice daily. 11/11/2010 06/11/2011 Inactive fluoxetine 40 mg Cap RxNorm: 879077 1 Capsule(s) PO QAM 11/11/2010 Inactive diazepam 10 mg Tab RxNorm: 912825 1 Tablet(s) PO BID and PRN 200911/12/2010 Inactive Bactrim DS 800 mg-160 mg Tab RxNorm: 508479 1 Tablet(s) PO BID 09/2210/15/2010 Inactive fluoxetine 20 mg Cap RxNorm: 779740 1 Capsule(s) PO QD 10/02/201008/2011 Inactive Bactrim DS 800 mg-160 mg Tab RxNorm: 971067 1 Tablet(s) PO BID 01/201010/03/2010 Inactive Zofran 4 mg Tab RxNorm: 626366 1 Tablet(s) PO Q4H prn nausea 200910/16/2010 Inactive 16.2 mg-0.1037 mg-0.0194 mg Tab RxNorm: 8224823 2 Tablet(s) PO TID PRN for gas and cramping 09/17/2010 10/21/2010 Inactive Gabapentin 800 mg Tab RxNorm: 748649 1 Tablet(s) PO QD 09/16/2010 Inactive ProAir HFA 90 mcg/Actuation Aerosol Inhaler RxNorm: 4936851 2 Puff(s) INH Q4H prn shortness of breath 09/15/2010 12/13/2010 Inactive gabapentin 800 mg Tab RxNorm: 800907 1 Tablet(s) PO QD 09/15/2010 Inactive Prevacid 30 mg Cap RxNorm: 015681 1 Capsule(s) PO QD 09/15/201004/12 Inactive loratadine 10 mg Tab RxNorm: 459194 1 Tablet(s) PO QD 09/15/201011/23 Inactive Premarin 0.9 mg Tab RxNorm: 709084 1 Tablet(s) PO QD 09/15/201004/12 Inactive Synthroid 112 mcg Tab RxNorm: 498546 1 Tablet(s) PO QD 09/15/2010 Inactive metformin ER 500 mg 24 hr Tab RxNorm: 411573 1 Tablet(s) PO QD 08/2304/12/2011 Inactive Symbicort 160 mcg-4.5 mcg/Actuation Inhalation HFA Aer osol Inhaler RxNorm: 3924583 2 Puff(s) INH BID 09/15/2010 04/12/2011 Inactive diazepam 10 mg Tab RxNorm: 327256 1 Tablet(s) PO BID and PRN 200910/13/2010 Inactive Phentermine 37.5 mg Cap RxNorm: 587379 1 Capsule(s) PO QD 09/02/2010 11/02/2011 Inactive ProAir HFA 90 mcg/Actuation Aerosol Inhaler RxNorm: 6035463 2 Puff(s) INH Q4H prn shortness of breath 08/07/2010 No Stop Date Active Premarin 0.9 mg Tab RxNorm: 495570 1 Tablet(s) PO QD 08/07/201009/14 Inactive Loratadine 10 mg Tab RxNorm: 257938 1 Tablet(s) PO QD 08/07/201008/23 Inactive Lactulose 10 gram/15 mL Oral Soln RxNorm: 789113 1 Unit Dose PO QD 08/07/2010 02/12/2019 Inactive Zofran 4 mg Tab RxNorm: 343723 1 Tablet(s) PO Q4H prn nausea 2009 No Stop Date Active Gabapentin 800 mg Tab RxNorm: 218996 1 Tablet(s) PO QD 08/07/2010 Inactive Synthroid 112 mcg Tab RxNorm: 982342 1 Tablet(s) PO QD 08/07/2010 Inactive Metformin ER 500 mg 24 hr Tab RxNorm: 431267 1 Tablet(s) PO QD 07/2309/14/2010 Inactive Vitamin D 1,000 unit Tab RxNorm: 923012 1 Tablet(s) PO TID 08/07/2002/12/2019 Inactive Symbicort 160 mcg-4.5 mcg/Actuation Inhalation HFA Aer osol Inhaler RxNorm: 0881929 2 Puff(s) INH BID 08/07/2010 09/14/2010 Inactive Prevacid 30 mg Cap RxNorm: 468259 1 Capsule(s) PO QD 08/07/201009/14 Inactive Metformin ER 500 mg 24 hr Tab RxNorm: 861369 1 Tablet(s) PO QD 06/2308/06/2010 Inactive Vitamin D 1,000 unit Tab RxNorm: 134001 1 Tablet(s) PO TID 07/14/2008/06/2010 Inactive Synthroid 112 mcg Tab RxNorm: 830502 1 Tablet(s) PO QD 07/14/2010 Inactive Lactulose 10 gram/15 mL Oral Soln RxNorm: 756719 1 Unit Dose PO QD 07/14/2010 08/06/2010 Inactive Levaquin 500 mg Tab RxNorm: 182175 1 Tablet(s) PO QD 07/14/201007/27 Inactive Premarin 0.9 mg Tab RxNorm: 136800 1 Tablet(s) PO QD 07/14/201008/06 Inactive ProAir HFA 90 mcg/Actuation Aerosol Inhaler RxNorm: 6916546 2 Puff(s) INH Q4H prn shortness of breath 07/14/2010 No Stop Date Active Prevacid 30 mg Cap RxNorm: 253200 1 Capsule(s) PO QD 07/14/201008/06 Inactive Zofran 4 mg Tab RxNorm: 860291 1 Tablet(s) PO Q4H prn nausea 2009 No Stop Date Active Symbicort 160 mcg-4.5 mcg/Actuation Inhalation HFA Aer osol Inhaler RxNorm: 2958438 2 Puff(s) INH BID 07/14/2010 08/06/2010 Inactive Loratadine 10 mg Tab RxNorm: 682298 1 Tablet(s) PO QD 07/14/201007/23 Inactive Gabapentin 800 mg Tab RxNorm: 200946 1 Tablet(s) PO QD 07/14/2010 Inactive Metformin ER 500 mg 24 hr Tab RxNorm: 047836 1 Tablet(s) PO 010 07/13/2010 Inactive Diazepam 10 mg Tab RxNorm: 767038 1 Tablet(s) PO BID and PRN 200909/06/2010 Inactive Premarin 0.9 mg Tab RxNorm: 431513 1 Tablet(s) PO QD 06/09/201007/13 Inactive Zofran 4 mg Tab RxNorm: 499976 1 Tablet(s) PO Q4H prn nausea 2009 No Stop Date Active ProAir HFA 90 mcg/Actuation Aerosol Inhaler RxNorm: 3143817 2 Puff(s) INH Q4H prn shortness of breath 06/09/2010 No Stop Date Active Gabapentin 800 mg Tab RxNorm: 182027 1 Tablet(s) PO QD 06/09/2010 Inactive Loratadine 10 mg Tab RxNorm: 648229 1 Tablet(s) PO QD 06/09/201006/23 Inactive Lactulose 10 gram/15 mL Oral Soln RxNorm: 637070 1 Unit Dose PO QD 06/09/2010 07/13/2010 Inactive Prevacid 30 mg Cap RxNorm: 086039 1 Capsule(s) PO QD 06/09/201007/13 Inactive Synthroid 112 mcg Tab RxNorm: 689585 1 Tablet(s) PO QD 06/09/2010 Inactive Symbicort 160 mcg-4.5 mcg/Actuation Inhalation HFA Aer osol Inhaler RxNorm: 5884537 2 Puff(s) INH BID 06/09/2010 07/13/2010 Inactive Omnicef 300 mg Cap RxNorm: 100190 2 Capsule(s) PO QD 05/07/201005/20 Inactive Metformin 500 mg Tab RxNorm: 553479 1 Tablet(s) PO QD 05/06/201005/22 Inactive ProAir HFA 90 mcg/Actuation Aerosol Inhaler RxNorm: 9801837 2 Puff(s) INH Q4H prn shortness of breath 05/06/2010 No Stop Date Active lactulose 10 gram/15 mL Oral Soln RxNorm: 031810 1 Unit Dose PO QD 05/06/2010 06/10/2011 Inactive Loratadine 10 mg Tab RxNorm: 078418 1 Tablet(s) PO QD 05/06/201005/22 Inactive Synthroid 112 mcg Tab RxNorm: 623600 1 Tablet(s) PO QD 05/06/2010 Inactive Symbicort 160 mcg-4.5 mcg/Actuation Inhalation HFA Aer osol Inhaler RxNorm: 5588462 2 Puff(s) INH BID 05/06/2010 06/08/2010 Inactive Gabapentin 800 mg Tab RxNorm: 612354 1 Tablet(s) PO QD 05/06/2010 Inactive 16.2 mg-0.1037 mg-0.0194 mg Tab RxNorm: 0389134 2 Tablet(s) PO TID PRN for gas and cramping 05/06/2010 05/12/2010 Inactive Zofran 4 mg Tab RxNorm: 655874 1 Tablet(s) PO Q4H prn nausea 200904/13/2010 Inactive MS Contin 60 mg Tab RxNorm: 278244 3 Tablet(s) PO BID 04/09/201004/22 Inactive Soma 350 mg Tab RxNorm: 817788 2 Tablet(s) PO TID 04/09/2010 05/08/20 Inactive Symbicort 160 mcg-4.5 mcg/Actuation Inhalation HFA Aer osol Inhaler RxNorm: 4694759 2 Puff(s) INH BID 04/08/2010 05/05/2010 Inactive Doxycycline 100 mg Cap RxNorm: 3190653 1 Capsule(s) PO BID 04/08/20 10 04/17/2010 Inactive Triamterene-Hydrochlorothiazide 37.5 mg-25 mg Cap RxNorm: 19 8316 1 Capsule(s) PO QAM 04/08/2010 09/04/2010 Inactive fluoxetine 40 mg Cap RxNorm: 791112 1 Capsule(s) PO QAM 04/08/2010 Inactive Morphine SR 120 mg multiphase 24 hr Cap RxNorm: 100245 1 Capsul e(s) PO 03/11/2010 04/07/2010 Inactive Endocet 10 mg-325 mg Tab RxNorm: 7552445 1-2 Tablet(s) PO Q4H AL N PAIN 03/11/2010 04/09/2010 Inactive Savella 100 mg Tab RxNorm: 816533 1 Tablet(s) PO BID 03/10/201004/09 Inactive Soma 350 mg Tab RxNorm: 293480 1 Tablet(s) PO TID prn spasm 010 04/09/2010 Inactive Savella 100 mg Tab RxNorm: 599493 1 Tablet(s) PO BID 02/03/201004/09 Inactive Aspirin 81 mg Tab RxNorm: 521835 1 Tablet(s) PO QD No Start Date Active Zyrtec 10 mg Tab RxNorm: 0590136 1 Tablet(s) PO QD No Start Date Active One Touch Ultra Test Strips RxNorm: Misc test at least t wice daily. No Start Date Active coenzyme Q10 200 mg capsule RxNorm: 486817 1 Capsule(s) PO QD No Star t Date Active One Touch Ultra Test Strips RxNorm: InVt BID Zainab t blood sugar at least twice daily. No Start Date 11/10/2010 Inactive Gabapentin 800 mg Tab RxNorm: 878614 1 Tablet(s) PO QD No Start Date 05/05/2010 Inactive Abilify 5 mg tablet RxNorm: 871514 1 Tablet(s) PO QD No Start Date Inactive Chantix 1 mg Tab RxNorm: 344502 1 Tablet(s) PO BID No Start Date 10/22 Inactive Ozempic 0.25 mg or 0.5 mg (2 mg/1.5 mL) subcutaneous p en injector RxNorm: 0917171 .25 Milligram(s) SQ QW No Start Date 07/04/2019 Inactive lancets 28 gauge RxNorm: Miscellaneous As needed for blo od glucose sticks No Start Date 08/23/2013 Inactive potassium chloride ER 20 mEq tablet,extended release RxNorm: 779264 2 Tablet(s) PO QD No Start Date 09/26/2018 Inactive Ventolin HFA 90 mcg/actuation Aerosol Inhaler RxNorm: 486821 1 2 Puff(s) INH Q4H prn No Start Date 01/17/2012 Inactive potassium chloride ER 20 mEq tablet,extended release RxNorm: 216020 2 Tablet(s) PO QD No Start Date 10/19/2018 Inactive Januvia 100 mg tablet RxNorm: 383796 1 Tablet(s) PO QD No Start Date 09/10/2015 Inactive Medrol (Aníbal) 4 mg Tabs in a Dose Pack RxNorm: 057351 Tablet(s) PO N o Start Date 08/09/2011 Inactive as directed Zithromax Z-Aníbal 250 mg Tab RxNorm: 751795 Tablet(s) PO No Start Date 01/25/2012 Inactive as directed vitamin B6-vitamin E-magnesium tablet RxNorm: 1 Tablet(s ) PO QHS with INH No Start Date 03/30/2018 Inactive prednisone 20 mg Tab RxNorm: 814934 1 Tablet(s) PO TID for 1wk then 1 po BID for 1wk No Start Date 01/25/2012 Inactive furosemide 40 mg tablet RxNorm: 262880 1 Tablet(s) PO QAM No Start Date 10/09/2018 Inactive Vitamin D3 1000 units Capsule RxNorm: 1 Capsule(s) PO TID No S tart Date 03/19/2015 Inactive Zofran 4 mg Tab RxNorm: 295154 1 Tablet(s) PO Q4H prn nausea No Sta rt Date 04/13/2010 Inactive Premarin 0.625 mg/g Vaginal Cream RxNorm: 778336 1 Gram (s) VAG QHS 3 times a week No Start Date 09/22/2017 Inactive oxycodone 10 mg tablet RxNorm: 1721368 1-2 Tablet(s) PO QID as n eeded for pain No Start Date 11/04/2015 Inactive Nicoderm CQ 21 mg/24 hr daily Patch RxNorm: 885930 1 Applicatio n TD QD No Start Date 08/05/2015 Inactive Topamax 50 mg tablet RxNorm: 152084 1/2 Tablet(s) PO QH S for 1wk then 1 po q HS for 1wk then 2 po q HS No Start Date 06/27/2012 Inactive Chantix Starting Month Aníbal 0.5 mg (11)-1 mg (3x14) Tab s in a Dose Pack RxNorm: 291379 Tablet(s) PO as directed No Start Date 03/01/2011 Inactive Trulicity 0.75 mg/0.5 mL subcutaneous pen injector RxNorm: 1 266459 Milliliter(s) SQ No Start Date 07/04/2019 Inactive Medrol (Aníbal) 4 mg Tabs in a Dose Pack RxNorm: 095158 Tablet(s) PO N o Start Date 01/25/2012 Inactive as directed Duragesic 100 mcg/hr Transderm Patch RxNorm: 506813 2 A pplication TD Q48H for pain No Start Date 09/05/2013 Inactive Premarin 0.9 mg Tab RxNorm: 387499 1 Tablet(s) PO QD No Start Date Inactive Zithromax Z-Aníbal 250 mg Tab RxNorm: 526343 Tablet(s) PO as direc chinmay No Start Date 01/25/2012 Inactive ondansetron 8 mg disintegrating tablet RxNorm: 875025 1 Tablet(s) PO Q6H as needed No Start Date 10/10/2018 Inactive oxycodone 15 mg tablet RxNorm: 6241958 1 Tablet(s) PO QID as nee ded for pain No Start Date 03/05/2019 Inactive ProAir HFA 90 mcg/Actuation Aerosol Inhaler RxNorm: 497574 2 Puff(s) INH Q4H prn for wheezing or shortness of breath No Start Date 12/21/2011 Inactive pravastatin 40 mg tablet RxNorm: 984780 1/2 Tablet(s) PO QOD No Sta rt Date 04/09/2015 Inactive ipratropium-albuterol 0.5 mg-3 mg(2.5 mg base)/3 mL ne bulization soln RxNorm: 4182775 1 Unit Dose INH Q4H as needed No Start Date 09/09/2016 Inactive furosemide 40 mg tablet RxNorm: 639127 1 Tablet(s) PO QAM as ne eded No Start Date 09/24/2019 Inactive Vitamin D2 oral RxNorm: 4018 oral No Start Date 03/18/2015 Inacti ve pravastatin 40 mg tablet RxNorm: 617304 1/2 Tablet(s) PO QD No Star t Date 04/09/2015 Inactive ondansetron HCl 4 mg tablet RxNorm: 126993 1 Tablet(s) PO Q4H as needed for nausea and vomiting No Start Date 04/07/2016 Inactive furosemide 40 mg tablet RxNorm: 062913 2 Tablet(s) PO QAM No Start Date 09/26/2018 Inactive gabapentin 800 mg tablet RxNorm: 695117 1/2 Tablet(s) PO BID No Sta rt Date 06/21/2017 Inactive gabapentin 800 mg tablet RxNorm: 747973 1/2 Tablet(s) PO BID No Sta rt Date 07/05/2017 Inactive ProAir HFA 90 mcg/Actuation Aerosol Inhaler RxNorm: 7730269 2 Puff(s) INH Q4H prn shortness of breath No Start Date 05/05/2010 Inactive scopolamine 1 mg over 3 days transdermal patch RxNorm: 56025 2 1 Application TD behind ear. Take off after three days No Start Date 10/10/2018 Inactive Metformin 500 mg Tab RxNorm: 734572 1 Tablet(s) PO QD No Start Date 0 05/05/2010 Inactive MS Contin 200 mg Tab RxNorm: 746044 1 Tablet(s) PO BID No Start Date 08/20/2011 Inactive Belladonna-Phenobarbital 48 mg tablet,extended release RxNor m: 2 Tablet(s) PO TID No Start Date 06/04/2016 Inactive Synthroid 112 mcg Tab RxNorm: 363422 1 Tablet(s) PO QD No Start Date 05/05/2010 Inactive Zegerid 40 mg-1.1 gram Cap RxNorm: 121713 1 Capsule(s) PO QD No Sta rt Date 01/25/2012 Inactive Premarin 0.625 mg/g Vaginal Cream RxNorm: 386354 VAG In sert 1gm vaginally at bedtime 3 times weekly No Start Date 01/17/2011 Inactive potassium chloride ER 20 mEq tablet,extended release RxNorm: 856267 1 Tablet(s) PO QD No Start Date 04/24/2019 Inactive methocarbamol 750 mg tablet RxNorm: 381706 2 Tablet(s) PO TID as needed for muscle spasm No Start Date 07/08/2014 Inactive Biaxin XL Aníbal 500 mg 24 hr Tab RxNorm: 477254 Tablet(s) PO as d irected No Start Date 04/24/2013 Inactive Vitamin D3 1,000 unit tablet RxNorm: 370008 3 Tablet(s) PO QD No St art Date 06/01/2017 Inactive Morphine SR 120 mg multiphase 24 hr Cap RxNorm: 247908 1 Capsul e(s) PO BID No Start Date 04/09/2010 Inactive Silvadene 1 % topical cream RxNorm: 436193 1 Application TOP BI D to burn area No Start Date 01/31/2017 Inactive Prednisone 20 mg Tab RxNorm: 202358 1 Tablet(s) PO TID for 3days then BID for 4days No Start Date 01/25/2012 Inactive gabapentin 600 mg tablet RxNorm: 571232 1 Tablet(s) PO BID No Start Date 01/21/2015 Inactive topiramate 50 mg tablet RxNorm: 221300 1 Tablet(s) PO QHS No Start Date 03/30/2018 Inactive Januvia 100 mg tablet RxNorm: 619941 1/2 Tablet(s) PO QD No Start D ate 12/25/2015 Inactive Diazepam 10 mg Tab RxNorm: 613390 1 Tablet(s) PO BID and PRN No Sta rt Date 06/08/2010 Inactive Medication Administered No Medication Administered data Immunizations Vaccine Codes Date Status Influenza CVX: 141 09/28/2012 Pneumovax Unknown 09/28/2012 Influenza (Adult) CVX: 141 09/02/2010 Results No Results data Procedures Procedure Codes Date THER/PROPH/DIAG INJ SC/IM CPT-4: 82450 07/10/2019 METHYLPREDNISOLONE INJECTION CPT-4: J2930 07/10/2019 URINALYSIS NONAUTO W/O SCOPE CPT-4: 09529 09/06/2018 URINE CULTURE/ COLONY COUNT CPT-4: 13522 09/06/2018 DRAIN/INJECT JOINT/BURSA CPT-4: 67130 04/29/2017 TRIAMCINOLONE ACET INJ NOS CPT-4: J3301 04/29/2017 DEXAMETHASONE SODIUM PHOS CPT-4: J1100 04/29/2017 INFLUENZA ASSAY W/OPTIC CPT-4: 64827 12/01/2016 RESPIRATORY CULTURE & STAIN CPT-4: 60851 07/09/2016 TB INTRADERMAL TEST CPT-4: 36094 04/21/2016 DRAIN/INJECT JOINT/BURSA CPT-4: 69441 11/07/2013 METHYLPREDNISOLONE 40 MG INJ CPT-4: J1030 11/07/2013 TRIAMCINOLONE ACET INJ NOS CPT-4: J3301 11/07/2013 DRAIN/INJECT JOINT/BURSA CPT-4: 17404 08/08/2013 METHYLPREDNISOLONE 40 MG INJ CPT-4: J1030 08/08/2013 TRIAMCINOLONE ACET INJ NOS CPT-4: J3301 08/08/2013 FLU VACCINE 3 YRS & > IM UP 64 CPT-4: 72799 2 PNEUMOCOCCAL VACC 23 ADITYA IM CPT-4: 60729 09/28/2012 IMMUNIZATION ADMIN CPT-4: 11962 09/28/2012 IMMUNIZATION ADMIN EACH ADD CPT-4: 30062 09/28/2012 FLU VACCINE 3 YRS & > IM UP 64 CPT-4: 11493 0 IMMUNIZATION ADMIN CPT-4: 62741 09/02/2010 METHYLPREDNISOLONE INJECTION CPT-4: J2930 05/07/2010 THER/PROPH/DIAG INJ SC/IM CPT-4: 78543 05/07/2010 Vital Signs Date Vital 11/29/2019 Blood [...] 1: 122/78 Code: 8480-6 BMI: 29.5 Code: 06705-9 Heart Rate 1: 76 bpm Height: 5'4" Respiratory Rate: 20 bpm SpO2: 96% Tempera ture: 37.0 (C) / 98.6 (F) Weight: 172 lbs 01/25/2019 Blood Pressure 1: 132/80 Code: 8480-6 BMI: 29.7 Code: 26920-6 Heart Rate 1: 84 bpm Height: 5'4" Respiratory Rate: 22 bpm SpO2: 98% Tempera ture: 36.9 (C) / 98.4 (F) Weight: 173 lbs 01/03/2019 Blood Pressure 1: 116/70 Code: 8480-6 BMI: 29.5 Code: 91855-0 Heart Rate 1: 92 bpm Height: 5'4" Respiratory Rate: 24 bpm SpO2: 98% Tempera ture: 37.2 (C) / 98.9 (F) Weight: 172 lbs 11/21/2018 Blood Pressure 1: 146/82 Code: 8480-6 BMI: 28.2 Code: 22658-3 Heart Rate 1: 88 bpm Height: 5'4" Respiratory Rate: 22 bpm SpO2: 97% Tempera ture: 36.9 (C) / 98.4 (F) Weight: 164 lbs 10/27/2018 Blood Pressure 1: 122/70 Code: 8480-6 BMI: 27.6 Code: 84669-4 Heart Rate 1: 88 bpm Height: 5'4" Respiratory Rate: 20 bpm SpO2: 96% Tempera ture: 36.8 (C) / 98.3 (F) Weight: 161 lbs 10/18/2018 Blood Pressure 1: 126/70 Code: 8480-6 BMI: 28.3 Code: 53457-2 Heart Rate 1: 76 bpm Height: 5'4" Respiratory Rate: 20 bpm SpO2: 95% Tempera ture: 37.0 (C) / 98.6 (F) Weight: 165 lbs 09/27/2018 Blood Pressure 1: 124/78 Code: 8480-6 BMI: 27.1 Code: 10785-5 Heart Rate 1: 88 bpm Height: 5'4" Respiratory Rate: 20 bpm SpO2: 98% Tempera ture: 36.4 (C) / 97.6 (F) Weight: 158 lbs 09/14/2018 Blood Pressure 1: 140/72 Code: 8480-6 BMI: 26.1 Code: 42576-5 Heart Rate 1: 100 bpm Height: 5'4" Respiratory Rate: 20 bpm SpO2: 97% Tempera ture: 36.9 (C) / 98.4 (F) Weight: 152 lbs 09/06/2018 Blood Pressure 1: 156/82 Code: 8480-6 BMI: 26.3 Code: 34159-5 Heart Rate 1: 100 bpm Height: 5'4" Respiratory Rate: 28 bpm SpO2: 95% Tempera ture: 37.2 (C) / 98.9 (F) Weight: 153 lbs 08/16/2018 Blood Pressure 1: 130/78 Code: 8480-6 Heart Rate 1: 87 bpm Respiratory Rate: 24 bpm SpO2: 94% Temperature: 36.9 (C) / 98.4 (F) We ight: 147 lbs 8 oz 07/07/2018 Blood Pressure 1: 116/78 Code: 8480-6 BMI: 22.7 Code: 96637-7 Heart Rate 1: 88 bpm Height: 5'4" Respiratory Rate: 22 bpm SpO2: 98% Tempera ture: 36.5 (C) / 97.7 (F) Weight: 132 lbs 05/31/2018 Blood Pressure 1: 128/78 Code: 8480-6 BMI: 22.3 Code: 59362-3 Heart Rate 1: 92 bpm Height: 5'4" Respiratory Rate: 26 bpm SpO2: 94% Tempera ture: 36.7 (C) / 98.1 (F) Weight: 130 lbs 03/31/2018 Blood Pressure 1: 136/78 Code: 8480-6 BMI: 21.5 Code: 92530-4 Heart Rate 1: 76 bpm Height: 5'4" Respiratory Rate: 24 bpm SpO2: 95% Tempera ture: 36.8 (C) / 98.3 (F) Weight: 125 lbs 01/26/2018 Blood Pressure 1: 142/64 Code: 8480-6 BMI: 20.6 Code: 68630-0 Heart Rate 1: 90 bpm Height: 5'4" Respiratory Rate: 24 bpm SpO2: 92% Tempera ture: 36.3 (C) / 97.3 (F) Weight: 120 lbs 10/26/2017 Blood Pressure 1: 124/70 Code: 8480-6 BMI: 20.3 Code: 17759-4 Heart Rate 1: 76 bpm Height: 5'4" Respiratory Rate: 22 bpm SpO2: 94% Tempera ture: 36.7 (C) / 98.1 (F) Weight: 118 lbs 09/23/2017 Blood Pressure 1: 106/70 Code: 8480-6 BMI: 19.2 Code: 01372-7 Heart Rate 1: 76 bpm Height: 5'4" Respiratory Rate: 20 bpm SpO2: 94% Tempera ture: 36.8 (C) / 98.3 (F) Weight: 112 lbs 08/12/2017 Blood Pressure 1: 116/68 Code: 8480-6 BMI: 20.1 Code: 93676-9 Heart Rate 1: 80 bpm Height: 5'4" Respiratory Rate: 22 bpm SpO2: 95% Tempera ture: 36.8 (C) / 98.2 (F) Weight: 117 lbs 07/06/2017 Blood Pressure 1: 136/78 Code: 8480-6 BMI: 20.6 Code: 75751-2 Heart Rate 1: 76 bpm Height: 5'4" Respiratory Rate: 24 bpm SpO2: 96% Tempera ture: 36.8 (C) / 98.2 (F) Weight: 120 lbs 06/02/2017 Blood Pressure 1: 112/70 Code: 8480-6 Heart Rate 1: 92 bpm Height: 5'4" Respiratory Rate: 24 bpm SpO2: 95% Temperature: 37.0 (C) / 98.6 (F) Weight: 04/29/2017 Blood Pressure 1: 94/52 Code: 8480-6 BMI: 19.6 C ode: 21573-2 Heart Rate 1: 84 bpm Height: 5'4" [...] 92/58 Code: 8480-6 BMI: 19.2 C ode: 20339-7 Heart Rate 1: 84 bpm Height: 5'4" Respiratory Rate: 26 bpm SpO2: 95% Tempera ture: 36.7 (C) / 98.0 (F) Weight: 112 lbs 12/01/2016 Blood Pressure 1: 114/70 Code: 8480-6 BMI: 19.2 Code: 99429-1 Heart Rate 1: 96 bpm Height: 5'4" Respiratory Rate: 28 bpm SpO2: 93% Tempera ture: 38.3 (C) / 101.0 (F) Weight: 112 lbs 10/27/2016 Blood Pressure 1: 126/66 Code: 8480-6 BMI: 19.6 Code: 27134-4 Heart Rate 1: 92 bpm Height: 5'4" Respiratory Rate: 28 bpm SpO2: 90% Tempera ture: 36.8 (C) / 98.3 (F) Weight: 114 lbs 09/09/2016 Blood Pressure 1: 126/74 Code: 8480-6 Heart Rate 1: 104 bpm Height: 5'4" Respiratory Rate: 32 bpm SpO2: 88% Temperature: 37 .2 (C) / 99.0 (F) 08/26/2016 Blood Pressure 1: 134/82 Code: 8480-6 BMI: 22.0 Code: 81617-5 Heart Rate 1: 84 bpm Height: 5'4" Respiratory Rate: 24 bpm SpO2: 94% Tempera ture: 36.8 (C) / 98.3 (F) Weight: 128 lbs 05/21/2016 Blood Pressure 1: 142/80 Code: 8480-6 BMI: 21.6 Code: 19626-8 Heart Rate 1: 104 bpm Height: 5'4" Respiratory Rate: 22 bpm SpO2: 93% Tempera ture: 36.0 (C) / 96.8 (F) Weight: 126 lbs 03/25/2016 Blood Pressure 1: 126/62 Code: 8480-6 Heart Rate 1: 88 bpm Respiratory Rate: 20 bpm SpO2: 92% Temperature: 36.8 (C) / 98.3 (F) We ight: 130 lbs 01/23/2016 Blood Pressure 1: 146/82 Code: 8480-6 BMI: 24.1 Code: 74751-0 Heart Rate 1: 92 bpm Height: 5'3" Respiratory Rate: 22 bpm Temperature: 37 .1 (C) / 98.8 (F) Weight: 136 lbs 12/26/2015 Blood Pressure 1: 142/78 Code: 8480-6 BMI: 24.6 Code: 36805-1 Heart Rate 1: 78 bpm Height: 5'3" Respiratory Rate: 20 bpm Temperature: 36 .7 (C) / 98.1 (F) Weight: 139 lbs 12/03/2015 Blood Pressure 1: 126/60 Code: 8480-6 BMI: 24.6 Code: 83954-6 Heart Rate 1: 100 bpm Height: 5'3" Respiratory Rate: 28 bpm Temperature: 37 .6 (C) / 99.6 (F) Weight: 139 lbs 09/10/2015 Blood Pressure 1: 124/64 Code: 8480-6 BMI: 23.7 Code: 97351-3 Heart Rate 1: 88 bpm Height: 5'3" Respiratory Rate: 24 bpm SpO2: 95% Tempera ture: 36.4 (C) / 97.6 (F) Weight: 134 lbs 08/06/2015 Blood Pressure 1: 114/76 Code: 8480-6 BMI: 23.2 Code: 34459-7 Heart Rate 1: 88 bpm Height: 5'3" Respiratory Rate: 22 bpm Temperature: 36 .6 (C) / 97.9 (F) Weight: 131 lbs 07/18/2015 Blood Pressure 1: 144/78 Code: 8480-6 BMI: 23.7 Code: 20640-5 Heart Rate 1: 84 bpm Height: 5'3" Respiratory Rate: 20 bpm Temperature: 37 .2 (C) / 99.0 (F) Weight: 134 lbs 04/10/2015 Blood Pressure 1: 110/64 Code: 8480-6 Heart Rate 1: 80 bpm Height: Respiratory Rate: 20 bpm Temperature: 37.1 (C) / 98.8 (F) Weight: 03/05/2015 Blood Pressure 1: 136/80 Code: 8480-6 BMI: 23.9 Code: 08793-6 Heart Rate 1: 76 bpm Height: 5'3" Respiratory Rate: 24 bpm Temperature: 37 .0 (C) / 98.6 (F) Weight: 135 lbs 01/30/2015 Blood Pressure 1: 142/80 Code: 8480-6 BMI: 23.0 Code: 59649-7 Heart Rate 1: 96 bpm Height: 5'3" Respiratory Rate: 22 bpm Temperature: 36 .2 (C) / 97.2 (F) Weight: 130 lbs 01/02/2015 Blood Pressure 1: 124/70 Code: 8480-6 BMI: 23.4 Code: 66965-9 Heart Rate 1: 84 bpm Height: 5'3" Respiratory Rate: 24 bpm SpO2: 95% Tempera ture: 36.9 (C) / 98.5 (F) Weight: 132 lbs 10/03/2014 Blood Pressure 1: 106/68 Code: 8480-6 BMI: 22.5 Code: 13841-1 Heart Rate 1: 88 bpm Height: 5'3" Respiratory Rate: 24 bpm Temperature: 37 .0 (C) / 98.6 (F) Weight: 127 lbs 08/27/2014 Blood Pressure 1: 124/68 Code: 8480-6 BMI: 21.1 Code: 78749-9 Heart Rate 1: 88 bpm Height: 5'3" [...] 1: 120/70 Code: 8480-6 BMI: 19.2 Code: 12108-1 Heart Rate 1: 70 bpm Height: 5'4" Respiratory Rate: 20 bpm Temperature: 36 .9 (C) / 98.4 (F) Weight: 112 lbs 06/28/2013 Blood Pressure 1: 102/68 Code: 8480-6 BMI: 19.6 Code: 38274-8 Heart Rate 1: 76 bpm Height: 5'4" Respiratory Rate: 20 bpm Temperature: 36 .8 (C) / 98.2 (F) Weight: 114 lbs 05/31/2013 Blood Pressure 1: 106/70 Code: 8480-6 BMI: 18.9 Code: 71552-0 Heart Rate 1: 100 bpm Height: 5'4" Respiratory Rate: 20 bpm Temperature: 36 .4 (C) / 97.6 (F) Weight: 110 lbs 05/03/2013 Blood Pressure 1: 126/70 Code: 8480-6 BMI: 19.1 Code: 11786-9 Heart Rate 1: 88 bpm Height: 5'4" Respiratory Rate: 20 bpm Temperature: 37 .1 (C) / 98.8 (F) Weight: 111 lbs 04/25/2013 Blood Pressure 1: 114/68 Code: 8480-6 BMI: 19.4 Code: 78841-5 Heart Rate 1: 92 bpm Height: 5'4" Respiratory Rate: 24 bpm SpO2: 96% Tempera ture: 37.7 (C) / 99.8 (F) Weight: 113 lbs 03/08/2013 Blood Pressure 1: 9468 Code: 8480-6 BMI: 21.3 C ode: 06588-0 Heart Rate 1: 88 bpm Height: 5'4" Respiratory Rate: 24 bpm Temperature: 37 .0 (C) / 98.6 (F) Weight: 124 lbs 02/07/2013 Blood Pressure 1: 106/64 Code: 8480-6 BMI: 21.8 Code: 07660-7 Heart Rate 1: 84 bpm Height: 5'4" Respiratory Rate: 22 bpm Temperature: 36 .8 (C) / 98.2 (F) Weight: 127 lbs 01/10/2013 Blood Pressure 1: 122/68 Code: 8480-6 BMI: 21.6 Code: 30963-3 Heart Rate 1: 94 bpm Height: 5'4" SpO2: 94% Temperature: 36.7 (C) / 98.1 (F) Weight: 126 lbs 09/28/2012 Blood Pressure 1: 124/78 Code: 8480-6 BMI: 24.9 Code: 31918-4 Heart Rate 1: 92 bpm Height: 5'4" Respiratory Rate: 20 bpm Temperature: 36 .7 (C) / 98.1 (F) Weight: 145 lbs 06/28/2012 Blood Pressure 1: 134/80 Code: 8480-6 BMI: 24.9 Code: 67600-6 Heart Rate 1: 76 bpm Height: 5'4" Respiratory Rate: 20 bpm Temperature: 36 .8 (C) / 98.2 (F) Weight: 145 lbs 05/03/2012 Blood Pressure 1: 108/62 Code: 8480-6 BMI: 25.6 Code: 19715-4 Heart Rate 1: 88 bpm Height: 5'4" Temperature: 36.2 (C) / 97.2 (F) Weight: 149 lbs 03/01/2012 Blood Pressure 1: 124/66 Code: 8480-6 BMI: 25.1 Code: 90766-0 Heart Rate 1: 76 bpm Height: 5'4" Respiratory Rate: 20 bpm Temperature: 36 .6 (C) / 97.9 (F) Weight: 146 lbs 01/26/2012 Blood Pressure 1: 118/82 Code: 8480-6 BMI: 25.1 Code: 81029-8 Heart Rate 1: 74 bpm Height: 5'4" Temperature: 36.8 (C) / 98.2 (F) Weight: 146 lbs 11/03/2011 Blood Pressure 1: 126/80 Code: 8480-6 BMI: 27.3 Code: 62482-2 Heart Rate 1: 72 bpm Height: 5'4" [...] prozac Encounters Encounter Performer Location Codes Date ([id number]) OFFICE/OUTPATIENT VISIT EST Diagnosis: Chronic pain syndrome[ICD10: G89.4] Diagnosis: Localized edema[ICD10: R60.0] Diagnosis: Chronic obstructive pulmonary disease, unspecified[ICD10: J44.9] Diagnosis: Other fatigue[ICD10: R53.83] Diagnosis: Muscle weakness (generalized)[ICD10: M62.81] Diagnosis: Spinal stenosis, lumbar region with neurogenic claudication[ICD10: M48.062] Vika RENTERIA DO [facility] CPT-4: 87699 11/29/2019 ([id number]) OFFICE/OUTPATIENT VISIT EST Diagnosis: Chronic pain syndrome[ICD10: G89.4] Diagnosis: Lumbar degenerative disc disease[ICD10: M51.36] Diagnosis: Muscle spasm[ICD10: M62.838] Diagnosis: Spinal stenosis, lumbar region with neurogenic claudication[ICD10: M48.062] Diagnosis: Spondylosis without myelopathy or radiculopathy, 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] Vika RENTERIA DO [facility] CPT-4: 15504 10/30/2019 ([id number]) OFFICE/OUTPATIENT VISIT EST Diagnosis: Chronic pain syndrome[ICD10: G89.4] Vika RENTERIA DO [facility] CPT-4: 55200 10/25/2019 ([id number]) OFFICE/OUTPATIENT VISIT EST Diagnosis: Epigastric pain[ICD10: R10.13] Diagnosis: Nausea[ICD10: R11.0] Diagnosis: Chronic obstructive pulmonary disease, unspecified[ICD10: J44.9] Vika RENTERIA DO [facility] CPT-4: 86381 07/26/2019 ([id number]) OFFICE/OUTPATIENT VISIT EST Diagnosis: Chronic obstructive pulmonary disease with (acute) exacerbation[ICD10: J44.1] Diagnosis: Chronic respiratory failure with hypoxia[ICD10: J96.11] Diagnosis: Other fatigue[ICD10: R53.83] Diagnosis: Edema, unspecified[ICD10: R60.9] Vika RENTERIA DO [facility] CPT-4: 29508 07/19/2019 ([id number]) OFFICE/OUTPATIENT VISIT EST Diagnosis: Chronic obstructive pulmonary disease with acute lower respiratory infection[ICD10: J44.0] Vika RENTERIA DO [facility] CPT-4: 98524 07/10/2019 ([id number]) OFFICE/OUTPATIENT VISIT EST Diagnosis: Type 2 diabetes mellitus with hyperglycemia[ICD10: E11.65] Diagnosis: Other infective otitis externa, left ear[ICD10: H60.392] Vika RENTERIA DO [facility] CPT-4: 54610 06/05/2019 ([id number]) OFFICE/OUTPATIENT VISIT EST Diagnosis: Chronic obstructive pulmonary disease with (acute) exacerbation[ICD10: J44.1] Diagnosis: Type 2 diabetes mellitus with hyperglycemia[ICD10: E11.65] Vika RENTERIA DO [facility]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
--- OUTSIDE RECORDS SUMMARY | 2020-04-24 23:22 | XMS REPORT | CCD ---
Author Author Yana Renteria D.O. Organization [facility] Address [address] [place] [address] Phone Care Team Providers Care Licensed Surveyor Name Role Phone Vika Renteria D.O., PP Unavailable CCM Unavailable Summary Purpose Interface Exchange Insurance Providers Payer name Policy type / Coverage type Covered alliance party ID Effective Begin Date Effective End Date [employer] [facility] Medicaid [id number] 2018 U nknown Family History Family History data not found Social History Social History Element Codes Description Effective Dates Marital status Unknown 06/28/[address]: 10064422 Currently smokes tobacco 05/2013 Allergies, Adverse Reactions, [...] MS Contin 200 mg tablet,extended release RxNorm: 719862 1 Tablet(s) Oral two times a day 12/05/2019 01/04/2020 Active Medrol (Aníbal) 4 mg tablets in a dose pack RxNorm: 083554 6 Tablet(s) Oral QD --then as directed 11/30/2019 12/05/2019 Inactive MS Contin 200 mg tablet,extended release RxNorm: 363713 1 Tablet(s) Oral two times a day 11/29/2019 12/04/2019 Inactive cyclobenzaprine 10 mg tablet RxNorm: 939400 TAKE ONE TA BLET BY MOUTH THREE TIMES A DAY NEEDED 11/21/2019 No Stop Date Active MS Contin 200 mg tablet,extended release RxNorm: 493351 1 Tablet(s) Oral two times a day replaces 100mg dose 11/03/2019 11/02/2019 Inactive MS Contin 200 mg tablet,extended release RxNorm: 930477 1 Tablet(s) Oral two times a day replaces 100mg dose 11/03/2019 11/29/2019 Inactive ferrous sulfate 325 mg (65 mg iron) tablet RxNorm: 775081 1 Tab let(s) Oral QD 10/30/2019 No Stop Date Active MS Contin 100 mg tablet,extended release RxNorm: 914471 1 Table t(s) Oral QD 10/30/2019 10/29/2019 Inactive MS Contin 100 mg tablet,extended release RxNorm: 090455 1 Table t(s) Oral QD 10/30/2019 11/02/2019 Inactive Relistor 150 mg tablet RxNorm: 5185326 TAKE THREE TABLETS BY BENOIT TH DAILY 10/25/2019 No Stop Date Active pantoprazole 40 mg tablet,delayed release RxNorm: 460102 1 Tabl et(s) Oral QD 10/25/2019 No Stop Date Active metformin 500 mg tablet RxNorm: 465627 1 Tablet(s) Oral QD 10/25/20 No Stop Date Active levothyroxine 25 mcg tablet RxNorm: 310936 1 Tablet(s) Oral QAM 02/201912/23/2019 Active Minipress 2 mg capsule RxNorm: 241787 1 Capsule(s) Oral QAM and 3 at bedtime 10/25/2019 No Stop Date Active Lancets, Super Thin RxNorm: 1 Unit Dose Miscellaneous QD 9 11/27/2020 Active Cymbalta 60 mg capsule,delayed release RxNorm: 326984 1 Capsule (s) Oral QAM 10/25/2019 No Stop Date Active Cymbalta 30 mg capsule,delayed release RxNorm: 659154 1 Capsule (s) Oral QAM 10/25/2019 No Stop Date Active oxycodone 15 mg tablet RxNorm: 3286612 1 Tablet(s) Oral four times a day as needed for pain 10/25/2019 11/28/2019 Inactive levothyroxine 25 mcg tablet RxNorm: 245032 1 Tablet(s) Oral QAM 02/201910/24/2019 Inactive MS Contin 100 mg tablet,extended release RxNorm: 781025 1 Tablet(s) Oral two times a day replaces fentanyl 10/25/2019 10/25/2019 Inactive Premarin 0.45 mg tablet RxNorm: 982664 TAKE ONE TABLET BY MOUTH DAILY 10/24/2019 No Stop Date Active Duragesic 100 mcg/hr transdermal patch RxNorm: 954070 2 Application TD Q48H for pain 10/18/2019 10/24/2019 Inactive gabapentin 300 mg capsule RxNorm: 748791 TAKE ONE CAPSULE BY MO [facility] TWICE A DAY 10/16/2019 No Stop Date Active cyclobenzaprine 10 mg tablet RxNorm: 036280 TAKE ONE TA BLET BY MOUTH THREE TIMES A DAY NEEDED 09/27/2019 11/20/2019 Inactive ProAir HFA 90 mcg/actuation aerosol inhaler RxNorm: 477436 INHALE ONE PUFF BY MOUTH EVERY 4 HOURS FOR WHEEZING OR FOR SHORTNESS OF BREATH 09/25/2019 No Stop Date Active furosemide 40 mg tablet RxNorm: 736520 1 Tablet(s) Oral QAM as needed 09/25/2019 09/25/2019 Inactive Relistor 150 mg tablet RxNorm: 7125489 TAKE THREE TABLETS BY BENOIT TH DAILY 09/25/2019 10/24/2019 Inactive oxycodone 15 mg tablet RxNorm: 5017240 1 Tablet(s) PO QID as nee ded for pain 09/21/2019 10/24/2019 Inactive Duragesic 100 mcg/hr transdermal patch RxNorm: 391529 2 Application TD Q48H for pain 09/19/2019 10/17/2019 Inactive Daliresp 500 mcg tablet RxNorm: 2412180 1 Tablet(s) Oral QD 019 03/08/2020 Active potassium chloride ER 20 mEq tablet,extended release RxNorm: 215305 TAKE ONE TABLET BY MOUTH DAILY 07/25/2019 01/20/2020 Active Relistor 150 mg tablet RxNorm: 8085967 TAKE THREE TABLETS BY BENOIT TH DAILY 07/25/2019 07/30/2019 Inactive cyclobenzaprine 10 mg tablet RxNorm: 127051 TAKE ONE TA BLET BY MOUTH THREE TIMES A DAY NEEDED 07/25/2019 09/22/2019 Inactive fluoxetine 40 mg capsule RxNorm: 730904 TAKE ONE CAPSULE BY BENOIT TH EVERY MORNING 07/11/2019 10/24/2019 Inactive Medrol (Aníbal) 4 mg tablets in a dose pack RxNorm: 785871 6 Tablet(s) PO QD --then as directed 07/10/2019 07/15/2019 Inactive omeprazole 40 mg capsule,delayed release RxNorm: 156375 1 Capsule(s) PO QD for stomach TAKE ONE CAPSULE BY MOUTH DAILY 07/10/2019 10/24/2019 Inactive Augmentin 875 mg-125 mg tablet RxNorm: 559446 1 Tablet(s) PO BID 07/16/2019 Inactive Trulicity 0.75 mg/0.5 mL subcutaneous pen injector RxNorm: 1 725974 0.75 Milliliter(s) SQ weekly 07/05/2019 10/24/2019 Inactive Compazine 10 mg tablet RxNorm: 186307 TAKE ONE TABLET B Y MOUTH FOUR TIMES A DAY NEEDED FOR NAUSEA 06/20/2019 07/19/2019 Inactive ProAir HFA 90 mcg/actuation aerosol inhaler RxNorm: 246754 INHALE ONE PUFF BY MOUTH EVERY 4 HOURS FOR WHEEZING OR FOR SHORTNESS OF BREATH 06/20/2019 06/23/2019 Inactive Daliresp 500 mcg tablet RxNorm: 1768914 TAKE ONE TABLET BY MOUTH DAILY 06/12/2019 09/10/2019 Inactive fwbmrgwg-qoyhdrusr-fgzduepnk 3.5 mg/mL-10,000 unit/mL- 1 % ear solution RxNorm: 472845 4 Drop(s) otic (ear) TID to left ear 06/05/2019 10/24/2019 Inac tive furosemide 40 mg tablet RxNorm: 281026 TAKE ONE TABLET BY MOUTH EVERY MORNING 05/26/2019 07/09/2019 Inactive Duragesic 100 mcg/hr transdermal patch RxNorm: 551748 2 Application TD Q48H for pain 05/16/2019 06/14/2019 Inactive oxycodone 15 mg tablet RxNorm: 8040769 1 Tablet(s) PO QID as nee ded for pain 05/10/2019 09/20/2019 Inactive doxycycline hyclate 100 mg capsule RxNorm: 5985971 1 Capsule(s) PO BID 05/03/2019 05/12/2019 Inactive prednisone 20 mg tablet RxNorm: 365140 1 Tablet(s) PO T ID for 3 days then 1 po BID for 3 days then one daily for 3 days 05/03/2019 07/11/2019 Inactiv e Ozempic 0.25 mg or 0.5 mg (2 mg/1.5 mL) subcutaneous p en injector RxNorm: 7896385 0.5 Milligram(s) SQ QW 05/03/2019 07/09/2019 Inactive fluconazole 100 mg tablet RxNorm: 938881 1 Tablet(s) PO QD 05/03/2005/07/2019 Inactive Premarin 0.45 mg tablet RxNorm: 613815 TAKE ONE TABLET BY MOUTH DAILY 05/03/2019 10/23/2019 Inactive potassium chloride ER 20 mEq tablet,extended release RxNorm: 494165 1 Tablet(s) PO QD 04/27/2019 07/25/2019 Inactive potassium chloride ER 20 mEq tablet,extended release RxNorm: 305040 1 Tablet(s) PO QD 04/25/2019 04/26/2019 Inactive Compazine 10 mg tablet RxNorm: 308536 1 Tablet(s) PO QID as nee ded for nausea 04/25/2019 05/04/2019 Inactive ProAir HFA 90 mcg/actuation aerosol inhaler RxNorm: 131126 INHALE ONE PUFF BY MOUTH EVERY 4 HOURS FOR WHEEZING OR FOR SHORTNESS OF BREATH 04/12/2019 06/10/2019 Inactive Medrol (Aníbal) 4 mg tablets in a dose pack RxNorm: 059223 6 Tablet(s) PO QD --then as directed 04/11/2019 04/16/2019 Inactive Symbicort 160 mcg-4.5 mcg/actuation HFA aerosol inhaler RxNo rm: 5372626 2 Puff(s) INH BID 04/10/2019 10/06/2019 Inactive levothyroxine 50 mcg tablet RxNorm: 530104 1 Tablet(s) PO QD 201810/24/2019 Inactive gabapentin 300 mg capsule RxNorm: 180498 1 Capsule(s) PO BID 201810/02/2019 Inactive Symbicort 160 mcg-4.5 mcg/actuation HFA aerosol inhaler RxNo rm: 2353820 2 Puff(s) INH BID 04/06/2019 04/09/2019 Inactive oxycodone 15 mg tablet RxNorm: 6692127 1 Tablet(s) PO QID as nee ded for pain 04/05/2019 05/09/2019 Inactive levothyroxine 50 mcg tablet RxNorm: 316032 1 Tablet(s) PO QD 201804/09/2019 Inactive furosemide 40 mg tablet RxNorm: 214838 TAKE ONE TABLET BY MOUTH EVERY MORNING 03/21/2019 04/19/2019 Inactive levothyroxine 50 mcg tablet RxNorm: 142122 TAKE ONE TABLET BY M OUTH DAILY 03/21/2019 03/27/2019 Inactive Duragesic 100 mcg/hr transdermal patch RxNorm: 861450 2 Application TD Q48H for pain 03/13/2019 04/11/2019 Inactive oxycodone 15 mg tablet RxNorm: 0512105 1 Tablet(s) PO QID as nee ded for pain 03/06/2019 04/04/2019 Inactive Relistor 150 mg tablet RxNorm: 1279184 3 Tablet(s) PO QD 02/28/2019 0 05/28/2019 Inactive cyclobenzaprine 10 mg tablet RxNorm: 619512 1 Tablet(s) PO TID as needed 02/28/2019 05/28/2019 Inactive phentermine 37.5 mg tablet RxNorm: 059589 1 Tablet(s) PO QAM 201803/15/2019 Inactive Duragesic 100 mcg/hr transdermal patch RxNorm: 811163 2 Application TD Q48H for pain 02/09/2019 03/10/2019 Inactive Daliresp 500 mcg tablet RxNorm: 0692193 TAKE ONE TABLET BY MOUTH DAILY 01/31/2019 05/30/2019 Inactive Premarin 0.45 mg tablet RxNorm: 885825 1 Tablet(s) PO QD 01/31/2019 0 04/30/2019 Inactive fluoxetine 40 mg capsule RxNorm: 551591 Capsule(s) TAKE ONE CAPSULE BY MOUTH EVERY MORNING 01/31/2019 04/30/2019 Inactive levothyroxine 50 mcg tablet RxNorm: 925828 1 Tablet(s) PO QD 201804/10/2019 Inactive follow up in 3 weeks levothyroxine 50 mcg tablet RxNorm: 562974 1 Tablet(s) PO QD 201801/25/2019 Inactive follow up in 3 weeks potassium chloride ER 20 mEq tablet,extended release RxNorm: 952099 2 Tablet(s) PO BID 01/23/2019 02/14/2019 Inactive Synthroid 50 mcg tablet RxNorm: 174753 TAKE ONE TABLET BY MOUTH DAILY 01/16/2019 10/24/2019 Inactive potassium chloride ER 20 mEq tablet,extended release RxNorm: 563819 2 Tablet(s) PO BID 01/04/2019 01/22/2019 Inactive ProAir HFA 90 mcg/actuation aerosol inhaler RxNorm: 740645 INHALE ONE PUFF BY MOUTH EVERY 4 HOURS FOR WHEEZING OR SHORTNESS OF BREATH 01/04/201902/20 Inactive Request already responded to by other me ans (e.g. phone or fax) ProAir HFA 90 mcg/actuation aerosol inhaler RxNorm: 4742688 INHALE ONE PUFF BY MOUTH EVERY 4 HOURS FOR WHEEZING OR SHORTNESS OF BREATH 01/02/201912/23 Inactive gabapentin 300 mg capsule RxNorm: 461203 TAKE ONE CAPSULE BY MO UTH TWICE A DAY 12/30/2018 04/06/2019 Inactive furosemide 40 mg tablet RxNorm: 316208 1 Tablet(s) PO QAM 12/26/2018 02/23/2019 Inactive Compazine 10 mg tablet RxNorm: 173192 1 Tablet(s) PO QID as nee ded for nausea 12/07/2018 12/16/2018 Inactive metolazone 2.5 mg tablet RxNorm: 399414 TAKE ONE TABLET BY MOUT H EVERY MORNING 12/05/2018 01/03/2019 Inactive metformin ER 500 mg tablet,extended release 24 hr RxNorm: 86 0975 TAKE ONE TABLET BY MOUTH DAILY 12/05/2018 04/10/2019 Inactive Synthroid 50 mcg tablet RxNorm: 723683 1 Tablet(s) PO QD 11/25/2018 0 01/03/2019 Inactive DC any other synthroid strengths. Should be 50mcg only cyclobenzaprine 10 mg tablet RxNorm: 440762 TAKE ONE TA BLET BY MOUTH THREE TIMES A DAY NEEDED 11/09/2018 02/06/2019 Inactive metolazone 2.5 mg tablet RxNorm: 832295 1 Tablet(s) PO QAM repl aces 5mg dose 11/02/2018 12/01/2018 Inactive potassium chloride ER 20 mEq tablet,extended release RxNorm: 832118 2 Tablet(s) PO QD 2018 01/02/2019 Inactive Compazine 10 mg tablet RxNorm: 897319 1 Tablet(s) PO QID as nee ded for nausea 10/18/2018 12/07/2018 Inactive furosemide 40 mg tablet RxNorm: 344344 1 Tablet(s) PO QAM 10/12/2018 12/10/2018 Inactive ondansetron 8 mg disintegrating tablet RxNorm: 726234 1 Tablet(s) PO Q6H as needed 10/11/2018 10/17/2018 Inactive scopolamine 1 mg over 3 days transdermal patch RxNorm: 08266 2 1 Application TD behind ear. Take off after three days 10/11/2018 01/02/2019 Inactive furosemide 40 mg tablet RxNorm: 644461 1 Tablet(s) PO QAM 10/10/2018 12/26/2018 Inactive metolazone 5 mg tablet RxNorm: 586436 1 Tablet(s) PO QAM 10/06/2018 1 01/03/2018 Inactive metolazone 5 mg tablet RxNorm: 531309 1 Tablet(s) PO QAM 10/06/2018 1 12/05/2017 Inactive Xtampza ER 36 mg capsule sprinkle RxNorm: 0601359 1 Capsule(s) P O BID 10/05/2018 01/02/2019 Inactive Xtampza ER 36 mg capsule sprinkle RxNorm: 1480374 1 Capsule(s) P O BID 10/05/2018 02/12/2019 Inactive omeprazole 40 mg capsule,delayed release RxNorm: 990632 TAKE ONE CAPSULE BY MOUTH DAILY 10/03/2018 12/31/2018 Inactive Duragesic 100 mcg/hr transdermal patch RxNorm: 904852 2 Application TD Q48H for pain 09/30/2018 10/29/2018 Inactive Synthroid 50 mcg tablet RxNorm: 372105 1 Tablet(s) PO QD 09/29/2018 0 11/25/2018 Inactive DC any other synthroid strengths. Should be 50mcg only Synthroid 50 mcg tablet RxNorm: 465949 1 Tablet(s) PO QD 09/29/2018 1 11/28/2017 Inactive furosemide 40 mg tablet RxNorm: 143483 2 Tablet(s) PO Q AM for 1 week then every other day for 2 weeks 09/27/2018 10/12/2018 Inactive fluoxetine 40 mg capsule RxNorm: 416635 2 Capsule(s) PO QD 09/27/20 18 10/17/2018 Inactive potassium chloride ER 20 mEq tablet,extended release RxNorm: 587824 2 Tablet(s) PO QD for 1 week then every other day for 2 weeks 09/27/2018 2018 Inactive ProAir HFA 90 mcg/actuation aerosol inhaler RxNorm: 5418920 INHALE ONE PUFF BY MOUTH EVERY 4 HOURS FOR WHEEZING OR SHORTNESS OF BREATH 09/26/201811/23 Inactive Synthroid 75 mcg tablet RxNorm: 688702 1 Tablet(s) PO QD 09/09/2018 1 Inactive Synthroid 75 mcg tablet RxNorm: 663588 1 Tablet(s) PO QD 09/09/2018 1 11/28/2017 Inactive furosemide 40 mg tablet RxNorm: 107037 1 Tablet(s) PO QD 09/06/2018 1 Inactive potassium chloride ER 20 mEq tablet,extended release RxNorm: 739828 1 Tablet(s) PO QD 09/06/2018 09/19/2018 Inactive Duragesic 100 mcg/hr transdermal patch RxNorm: 141881 2 Application TD Q48H for pain 08/30/2018 09/28/2018 Inactive gabapentin 300 mg capsule RxNorm: 763998 TAKE ONE CAPSULE BY MO [facility] TWICE A DAY 08/23/2018 12/20/2018 Inactive Daliresp 500 mcg tablet RxNorm: 7751855 TAKE ONE TABLET BY MOUTH DAILY 08/23/2018 01/19/2019 Inactive Pulmicort 1 mg/2 mL suspension for nebulization RxNorm: 6168 19 USE ONE VIAL VIA NEBULIZER BY MOUTH TWICE A DAY 08/23/2018 07/11/2019 Inactive Synthroid 88 mcg tablet RxNorm: 281781 1 Tablet(s) PO QD 08/19/2018 1 Inactive Medrol (Aníbal) 4 mg tablets in a dose pack RxNorm: 937146 Tablet(s) PO take as directed 08/16/2018 09/05/2018 Inactive Relistor 150 mg tablet RxNorm: 1292363 3 Tablet(s) PO QD 08/16/2018 1 Inactive Zithromax Z-Aníbal 250 mg tablet RxNorm: 188013 Tablet(s) PO take as directed 08/16/2018 09/05/2018 Inactive cyclobenzaprine 10 mg tablet RxNorm: 544076 1 Tablet(s) PO TID as needed 08/16/2018 11/08/2018 Inactive Synthroid 88 mcg tablet RxNorm: 960934 1 Tablet(s) PO Q D NEEDS UPDATED LABS BEFORE FURTHER REFILLS 08/08/2018 08/19/2018 Inactive Premarin 0.45 mg tablet RxNorm: 645458 1 Tablet(s) PO QD 08/03/2018 0 01/31/2019 Inactive fluoxetine 20 mg capsule RxNorm: 349970 [facility] 08/03/2018 09/26/2018 Inactive Xtampza ER 36 mg capsule sprinkle RxNorm: 2278736 1 Capsule(s) P O BID 08/03/2018 09/01/2018 Inactive metformin ER 500 mg tablet,extended release 24 hr RxNorm: 86 75 1 Tablet(s) PO QD 08/03/2018 10/31/2018 Inactive Symbicort 160 mcg-4.5 mcg/actuation HFA aerosol inhaler RxNo rm: 3243933 2 Puff(s) INH BID 08/03/2018 01/29/2019 Inactive Duragesic 100 mcg/hr transdermal patch RxNorm: 191737 2 Application TD Q48H for pain 07/29/2018 08/27/2018 Inactive ProAir HFA 90 mcg/actuation aerosol inhaler RxNorm: 167670 INHALE TWO PUFFS BY MOUTH EVERY 4 HOURS FOR WHEEZING OR SHORTNESS OF BREATH 07/27/201802/2018 Inactive Relistor 150 mg tablet RxNorm: 4867627 3 Tablet(s) PO QD 07/20/2018 0 08/15/2018 Inactive metformin ER 500 mg tablet,extended release 24 hr RxNorm: 86 0975 TAKE ONE TABLET BY MOUTH DAILY 07/08/2018 08/02/2018 Inactive fluoxetine 40 mg capsule RxNorm: 476116 TAKE ONE CAPSULE BY BENOIT TH EVERY MORNING 07/08/2018 10/05/2018 Inactive Xtampza ER 18 mg capsule sprinkle RxNorm: 7171168 1 Capsule(s) P O BID 07/08/2018 08/02/2018 Inactive Relistor 150 mg tablet RxNorm: 0242790 3 Tablet(s) PO QD 07/08/2018 0 07/12/2018 Inactive Synthroid 88 mcg tablet RxNorm: 103132 1 Tablet(s) PO Q D NEEDS UPDATED LABS BEFORE FURTHER REFILLS 06/23/2018 07/07/2018 Inactive fluoxetine 40 mg capsule RxNorm: 881668 TAKE ONE CAPSULE BY BENOIT TH EVERY MORNING 06/15/2018 09/26/2018 Inactive orphenadrine citrate ER 100 mg tablet,extended release RxNor m: 469101 TAKE ONE TABLET BY MOUTH TWICE A DAY FOR MUSCLE SPASM 06/15/2018 08/15/2018 Renu ctive Duragesic 100 mcg/hr transdermal patch RxNorm: 806408 2 Application TD Q48H for pain 05/30/2018 06/28/2018 Inactive ProAir HFA 90 mcg/actuation aerosol inhaler RxNorm: 850217 INHALE TWO PUFFS BY MOUTH EVERY 4 HOURS FOR WHEEZING OR SHORTNESS OF BREATH 05/19/201803/2018 Inactive Chantix Continuing Month Box 1 mg tablet RxNorm: 119770 TAKE ONE TABLET BY MOUTH TWICE A DAY 05/19/2018 08/15/2018 Inactive oxycodone 10 mg tablet RxNorm: 9294889 1-2 Tablet(s) PO QID as n eeded for pain 05/19/2018 07/07/2018 Inactive gabapentin 300 mg capsule RxNorm: 167099 TAKE ONE CAPSULE BY [facility] TWICE A DAY 05/18/2018 07/16/2018 Inactive ProAir HFA 90 mcg/actuation aerosol inhaler RxNorm: 841767 INHALE TWO PUFFS BY MOUTH EVERY 4 HOURS FOR WHEEZING OR SHORTNESS OF BREATH 05/04/201804/23 Inactive Augmentin 500 mg-125 mg tablet RxNorm: 372768 1 Tablet(s) PO BID 05/03/2018 Inactive oxycodone 10 mg tablet RxNorm: 7620924 1-2 Tablet(s) PO QID as n eeded for pain 04/21/2018 05/18/2018 Inactive Synthroid 88 mcg tablet RxNorm: 674114 1 Tablet(s) PO QD 04/15/2018 0 08/08/2018 Inactive Symbicort 160 mcg-4.5 mcg/actuation HFA aerosol inhaler RxNo rm: 6626119 2 Puff(s) INH BID 04/15/2018 04/10/2019 Inactive Premarin 0.45 mg tablet RxNorm: 315495 1 Tablet(s) PO QD 04/15/2018 0 08/03/2018 Inactive ProAir HFA 90 mcg/actuation aerosol inhaler RxNorm: 740807 2 Puff(s) INH Q4H prn for wheezing or shortness of breath 04/15/2018 05/03/2018 Inactive metformin ER 500 mg tablet,extended release 24 hr RxNorm: 86 0975 1 Tablet(s) PO QD 04/11/2018 07/07/2018 Inactive omeprazole 40 mg capsule,delayed release RxNorm: 580030 TAKE ONE CAPSULE BY MOUTH DAILY 04/10/2018 06/08/2018 Inactive Synthroid 88 mcg tablet RxNorm: 345100 1 Tablet(s) PO QD 04/04/2018 0 04/14/2018 Inactive Synthroid 88 mcg tablet RxNorm: 188243 1 Tablet(s) PO QD 04/04/2018 0 04/03/2018 Inactive orphenadrine citrate ER 100 mg tablet,extended release RxNor m: 354103 1 Tablet(s) PO BID for muscle spasm 04/04/2018 05/03/2018 Inactive metformin ER 500 mg tablet,extended release 24 hr RxNorm: 86 0975 1 Tablet(s) PO QD NEEDS UPDATED LABS 03/31/2018 04/11/2018 Inactive doxycycline hyclate 100 mg capsule RxNorm: 8193434 1 Capsule(s) PO BID 03/31/2018 04/09/2018 Inactive prednisone 20 mg tablet RxNorm: 195139 3 Tablet(s) PO T ID for 3 days then 1 po BID for 3 days then one daily for 3 days 03/31/2018 07/06/2018 Inactiv e Chantix Continuing Month Box 1 mg tablet RxNorm: 402836 TAKE ONE TABLET BY MOUTH TWICE A DAY 03/25/2018 03/30/2018 Inactive oxycodone 10 mg tablet RxNorm: 7359614 1-2 Tablet(s) PO QID as n eeded for pain 03/21/2018 04/20/2018 Inactive Daliresp 500 mcg tablet RxNorm: 2260985 1 Tablet(s) PO QD 03/15/2018 08/22/2018 Inactive metformin ER 500 mg tablet,extended release 24 hr RxNorm: 86 0975 1 Tablet(s) PO QD NEEDS UPDATED LABS 03/14/2018 03/31/2018 Inactive nystatin 100,000 unit/mL oral suspension RxNorm: 575594 5 Chio liter(s) PO QID 03/02/2018 03/15/2018 Inactive nystatin 100,000 unit/mL oral suspension RxNorm: 189759 5 Chio liter(s) PO QID 03/02/2018 03/01/2018 Inactive oxycodone 10 mg tablet RxNorm: 8373197 1-2 Tablet(s) PO QID as n eeded for pain 02/16/2018 03/20/2018 Inactive fluoxetine 20 mg capsule RxNorm: 712541 1 Capsule(s) PO QD 02/15/20 18 08/02/2018 Inactive metformin ER 500 mg tablet,extended release 24 hr RxNorm: 86 0975 1 Tablet(s) PO QD Needs updated labs 02/14/2018 03/14/2018 Inactive cefdinir 300 mg capsule RxNorm: 432845 1 Capsule(s) PO BID 01/27/20 18 02/04/2018 Inactive orphenadrine citrate ER 100 mg tablet,extended release RxNor m: 935387 1 Tablet(s) PO BID for muscle spasm 01/26/2018 04/04/2018 Inactive gabapentin 300 mg capsule RxNorm: 448013 1 Capsule(s) PO BID 201704/17/2018 Inactive oxycodone 10 mg tablet RxNorm: 0943000 1-2 Tablet(s) PO QID as n eeded for pain 01/17/2018 02/15/2018 Inactive Duragesic 100 mcg/hr transdermal patch RxNorm: 790356 2 Application TD Q48H for pain 01/17/2018 02/15/2018 Inactive gabapentin 300 mg capsule RxNorm: 883439 TAKE ONE CAPSULE BY MO UTH TWICE A DAY 12/20/2017 01/18/2018 Inactive fluoxetine 40 mg capsule RxNorm: 453509 TAKE ONE CAPSULE BY BENOIT TH EVERY MORNING 12/15/2017 03/14/2018 Inactive OneTouch Ultra Test strips RxNorm: TEST DAILY 11/04/2017 02/01/2018 Inactive gabapentin 300 mg capsule RxNorm: 731483 1 Capsule(s) P O TID replaces BID dosing 10/26/2017 02/22/2018 Inactive oxycodone 10 mg tablet RxNorm: 5880609 1-2 Tablet(s) PO QID as n eeded for pain 10/18/2017 01/16/2018 Inactive Duragesic 100 mcg/hr transdermal patch RxNorm: 655942 2 Application TD Q48H for pain 10/18/2017 11/16/2017 Inactive gabapentin 300 mg capsule RxNorm: 384282 1 Capsule(s) PO BID 201610/25/2017 Inactive Abilify 5 mg tablet RxNorm: 503865 1 Tablet(s) PO QAM 09/23/201702/2017 Inactive gabapentin 300 mg capsule RxNorm: 468928 1 Capsule(s) PO BID 201610/17/2017 Inactive oxycodone 10 mg tablet RxNorm: 3032217 1-2 Tablet(s) PO QID as n eeded for pain 09/15/2017 10/17/2017 Inactive Duragesic 100 mcg/hr transdermal patch RxNorm: 201994 2 Application TD Q48H for pain 09/15/2017 10/14/2017 Inactive Duragesic 100 mcg/hr transdermal patch RxNorm: 306402 2 Application TD Q48H for pain 09/15/2017 10/24/2019 Inactive oxycodone 10 mg tablet RxNorm: 8633338 1-2 Tablet(s) PO QID as n eeded for pain 09/15/2017 08/15/2018 Inactive Daliresp 500 mcg tablet RxNorm: 1667832 1 Tablet(s) PO QD 09/06/2017 03/15/2018 Inactive Ventolin HFA 90 mcg/actuation aerosol inhaler RxNorm: 488282 2 Puff(s) INH Q4H as needed 09/02/2017 05/19/2018 Inactive oxycodone 10 mg tablet RxNorm: 2872477 1-2 Tablet(s) PO QID as n eeded for pain 08/17/2017 09/14/2017 Inactive Duragesic 100 mcg/hr transdermal patch RxNorm: 822656 2 Application TD Q48H for pain 08/17/2017 09/14/2017 Inactive fluoxetine 40 mg capsule RxNorm: 041948 Capsule(s) TAKE ONE CAPSULE BY MOUTH EVERY MORNING 08/17/2017 12/14/2017 Inactive Pulmicort 1 mg/2 mL suspension for nebulization RxNorm: 6168 19 1 Unit Dose INH BID Dx: COPD (J44.9) 08/16/2017 08/22/2018 Inactive gabapentin 300 mg capsule RxNorm: 615629 1 Capsule(s) PO QHS 201610/18/2017 Inactive fluoxetine 20 mg capsule RxNorm: 007892 1 Capsule(s) PO QD 08/12/20 17 02/14/2018 Inactive Abilify 2 mg tablet RxNorm: 255448 1 Tablet(s) PO QD TA KE ONE TABLET BY MOUTH DAILY 08/12/2017 10/25/2017 Inactive metformin ER 500 mg tablet,extended release 24 hr RxNorm: 86 0975 1 Tablet(s) PO QD 08/10/2017 02/14/2018 Inactive Synthroid 112 mcg tablet RxNorm: 936747 1 Tablet(s) PO QD 08/10/2017 04/15/2018 Inactive oxycodone 10 mg tablet RxNorm: 9150758 1-2 Tablet(s) PO QID as n eeded for pain 07/19/2017 08/16/2017 Inactive Duragesic 100 mcg/hr transdermal patch RxNorm: 292316 2 Application TD Q48H for pain 07/19/2017 08/16/2017 Inactive Ventolin HFA 90 mcg/actuation aerosol inhaler RxNorm: 094292 2 Puff(s) INH Q4H as needed 07/12/2017 09/02/2017 Inactive Abilify 2 mg tablet RxNorm: 575079 1 Tablet(s) PO QD TA KE ONE TABLET BY MOUTH DAILY 07/06/2017 08/11/2017 Inactive gabapentin 800 mg tablet RxNorm: 006639 1 Tablet(s) PO TID 06/22/20 17 07/05/2017 Inactive Chantix Starting Month Box 0.5 mg (11)-1 mg (42) table ts in dose pack RxNorm: 418885 TAKE BY MOUTH INSTRUCTED - PER PACKAGE INSTRUCTIONS 06/0707/04/2017 Inactive Ventolin HFA 90 mcg/actuation aerosol inhaler RxNorm: 363922 2 Puff(s) INH Q4H as needed 05/26/2017 07/12/2017 Inactive Duragesic 100 mcg/hr transdermal patch RxNorm: 318189 2 Application TD Q48H for pain 05/19/2017 06/17/2017 Inactive oxycodone 10 mg tablet RxNorm: 0136477 1-2 Tablet(s) PO QID as n eeded for pain 05/19/2017 07/18/2017 Inactive Abilify 2 mg tablet RxNorm: 277945 TAKE ONE TABLET BY MOUTH DAILY 0 05/10/2017 07/05/2017 Inactive Synthroid 112 mcg tablet RxNorm: 131894 1 Tablet(s) PO QD 05/06/2017 08/10/2017 Inactive metformin ER 500 mg tablet,extended release 24 hr RxNorm: 86 0975 1 Tablet(s) PO QD 05/06/2017 08/10/2017 Inactive Topamax 100 mg tablet RxNorm: 037071 1 Tablet(s) PO QHS 05/06/2017 Inactive Premarin 0.45 mg tablet RxNorm: 882233 1 Tablet(s) PO QD 05/06/2017 0 04/15/2018 Inactive orphenadrine citrate ER 100 mg tablet,extended release RxNor m: 740797 1 Tablet(s) PO TID for muscle spasm--replaces methocarbamol 04/29/2017 Inactive oxycodone 10 mg tablet RxNorm: 1970573 1-2 Tablet(s) PO QID as n eeded for pain 04/21/2017 05/18/2017 Inactive Duragesic 100 mcg/hr transdermal patch RxNorm: 361564 2 Application TD Q48H for pain 04/21/2017 05/18/2017 Inactive fluoxetine 40 mg capsule RxNorm: 064883 Capsule(s) TAKE ONE CAPSULE BY MOUTH EVERY MORNING 04/20/2017 08/17/2017 Inactive Ventolin HFA 90 mcg/actuation aerosol inhaler RxNorm: 172879 2 Puff(s) INH Q4H as needed 04/05/2017 05/26/2017 Inactive Symbicort 160 mcg-4.5 mcg/actuation HFA aerosol inhaler RxNo rm: 9569143 2 Puff(s) INH BID 03/30/2017 04/15/2018 Inactive Spiriva with HandiHaler 18 mcg and inhalation capsules RxNor m: 289571 1 Capsule(s) INH QD USING HANDIHALER 03/30/2017 02/12/2019 Inactive Duragesic 100 mcg/hr transdermal patch RxNorm: 195508 2 Application TD Q48H for pain 03/18/2017 04/16/2017 Inactive oxycodone 10 mg tablet RxNorm: 4429374 1-2 Tablet(s) PO QID as n eeded for pain 03/18/2017 04/20/2017 Inactive metformin ER 500 mg tablet,extended release 24 hr RxNorm: 86 0975 Tablet(s) TAKE ONE TABLET BY MOUTH DAILY 03/01/2017 05/06/2017 Inactive Premarin 0.45 mg tablet RxNorm: 806153 Tablet(s) TAKE ONE TABLE T BY MOUTH DAILY 03/01/2017 05/06/2017 Inactive Synthroid 112 mcg tablet RxNorm: 444041 Tablet(s) TAKE ONE TABLET BY MOUTH DAILY 03/01/2017 05/06/2017 Inactive Daliresp 500 mcg tablet RxNorm: 0607155 1 Tablet(s) PO QD 03/01/2017 09/06/2017 Inactive 16.2 mg-0.1037 mg-0.0194 mg tablet RxNorm: 3223863 Tablet(s) PO PRN for gas and cramping 02/23/2017 04/28/2017 Inactive TAKE TWO TABLET S BY MOUTH THREE TIMES A DAY NEEDED FOR GAS AND CRAMPING gabapentin 800 mg tablet RxNorm: 350571 1 Tablet(s) PO TID repl aces 600mg 02/23/2017 04/28/2017 Inactive Duragesic 100 mcg/hr transdermal patch RxNorm: 784757 2 Application TD Q48H for pain 02/17/2017 03/17/2017 Inactive fluoxetine 20 mg capsule RxNorm: 617438 1 Capsule(s) PO QD 02/18/20 17 08/12/2017 Inactive oxycodone 20 mg tablet RxNorm: 7777564 1 Tablet(s) PO QID as nee ded for pain 02/17/2017 03/17/2017 Inactive Ventolin HFA 90 mcg/actuation aerosol inhaler RxNorm: 061844 INHALE TWO PUFFS BY MOUTH EVERY 4 HOURS NEEDED 02/15/2017 04/05/2017 Inactive Silvadene 1 % topical cream RxNorm: 015288 1 Application TOP BI D to burn area 02/01/2017 09/22/2017 Inactive Topamax 100 mg tablet RxNorm: 818019 TAKE ONE TABLET BY MOUTH EVERY NIGHT AT BEDTIME 01/29/2017 05/06/2017 Inactive Chantix Starting Month Box 0.5 mg (11)-1 mg (42) table ts in dose pack RxNorm: 485525 Tablet(s) PO as directed 01/29/2017 06/01/2017 Inactive Abilify 2 mg tablet RxNorm: 844591 TAKE ONE TABLET BY MOUTH DAILY 0 01/26/2017 04/25/2017 Inactive Chantix Starting Month Box 0.5 mg (11)-1 mg (42) table ts in dose pack RxNorm: 623676 Tablet(s) PO as directed 01/20/2017 01/28/2017 Inactive gabapentin 600 mg tablet RxNorm: 737007 1 Tablet(s) PO TID 01/21/20 17 02/22/2017 Inactive Chantix Continuing Month Box 1 mg tablet RxNorm: 937841 1 Table t(s) PO BID 12/31/2016 06/01/2017 Inactive Spiriva with HandiHaler 18 mcg and inhalation capsules RxNor m: 575683 INHALE THE ENTIRE CONTENTS OF 1 CAPSULE ONCE A DAY USING HANDIHALER 12/31/201607/2017 Inactive Synthroid 112 mcg tablet RxNorm: 190092 TAKE ONE TABLET BY MOUT H DAILY 12/30/2016 03/01/2017 Inactive metformin ER 500 mg tablet,extended release 24 hr RxNorm: 86 0975 TAKE ONE TABLET BY MOUTH DAILY 12/30/2016 03/01/2017 Inactive Premarin 0.45 mg tablet RxNorm: 292297 TAKE ONE TABLET BY MOUTH DAILY 12/30/2016 03/01/2017 Inactive omeprazole 40 mg capsule,delayed release RxNorm: 991229 TAKE ONE CAPSULE BY MOUTH DAILY 12/30/2016 01/25/2018 Inactive Ventolin HFA 90 mcg/actuation aerosol inhaler RxNorm: 878238 INHALE TWO PUFFS BY MOUTH EVERY 4 HOURS NEEDED 12/28/2016 02/13/2017 Inactive fluoxetine 40 mg capsule RxNorm: 527810 TAKE ONE CAPSULE BY BENOIT TH EVERY MORNING 12/15/2016 04/20/2017 Inactive Chantix Continuing Month Box 1 mg tablet RxNorm: 710513 TAKE ONE TABLET BY MOUTH TWICE A DAY 12/04/2016 12/31/2016 Inactive doxycycline hyclate 100 mg capsule RxNorm: 3723625 1 Capsule(s) PO BID 12/01/2016 12/07/2016 Inactive Levaquin 750 mg tablet RxNorm: 890277 1 Tablet(s) PO QD 12/01/2016 Inactive Abilify 2 mg tablet RxNorm: 109734 TAKE ONE TABLET BY MOUTH DAILY 0 11/25/2016 11/30/2016 Inactive Ventolin HFA 90 mcg/actuation aerosol inhaler RxNorm: 681570 INHALE TWO PUFFS BY MOUTH EVERY 4 HOURS NEEDED 11/02/2016 12/19/2016 Inactive Chantix Continuing Month Box 1 mg tablet RxNorm: 685192 Tablet(s) PO as directed 10/30/2016 12/03/2016 Inactive Symbicort 160 mcg-4.5 mcg/actuation HFA aerosol inhaler RxNo rm: 2428916 INHALE TWO PUFFS TWO TIMES A DAY 10/30/2016 03/30/2017 Inactive Abilify 2 mg tablet RxNorm: 854743 1 Tablet(s) PO QD 10/27/201611/24 Inactive amoxicillin 500 mg capsule RxNorm: 111000 1 Capsule(s) PO TID 10/1410/23/2016 Inactive amoxicillin 500 mg capsule RxNorm: 145825 1 Capsule(s) PO TID 10/1410/13/2016 Inactive Synthroid 112 mcg tablet RxNorm: 627143 TAKE ONE TABLET BY MOUT H DAILY 09/28/2016 12/29/2016 Inactive Topamax 100 mg tablet RxNorm: 114574 TAKE ONE TABLET BY MOUTH EVERY NIGHT AT BEDTIME 09/28/2016 01/28/2017 Inactive Premarin 0.45 mg tablet RxNorm: 882322 TAKE ONE TABLET BY MOUTH DAILY 09/28/2016 12/29/2016 Inactive metformin ER 500 mg tablet,extended release 24 hr RxNorm: 86 0975 TAKE ONE TABLET BY MOUTH DAILY 09/28/2016 12/29/2016 Inactive Ventolin HFA 90 mcg/actuation aerosol inhaler RxNorm: 478770 INHALE TWO PUFFS BY MOUTH EVERY 4 HOURS NEEDED 09/22/2016 10/23/2016 Inactive Pulmicort 1 mg/2 mL suspension for nebulization RxNorm: 6168 19 1 Unit Dose INH BID Dx: COPD (J44.9) 09/10/2016 08/16/2017 Inactive Pulmicort 1 mg/2 mL suspension for nebulization RxNorm: 6168 19 1 Unit Dose INH BID 09/10/2016 09/09/2016 Inactive Brovana 15 mcg/2 mL solution for nebulization RxNorm: 254584 1 Unit Dose INH BID Dx: COPD (J44.9) 09/10/2016 01/25/2018 Inactive Brovana 15 mcg/2 mL solution for nebulization RxNorm: 061409 1 Unit Dose INH BID 09/10/2016 09/09/2016 Inactive ipratropium-albuterol 0.5 mg-3 mg(2.5 mg base)/3 mL ne bulization soln RxNorm: 3417810 1 Unit Dose INH Q4H as needed Dx: COPD (J44.9) 09/10/2016 0 02/12/2019 Inactive orphenadrine citrate ER 100 mg tablet,extended release RxNor m: 314439 1 Tablet(s) PO BID for muscle spasm--replaces methocarbamol 09/09/2016 Inactive Chantix Continuing Month Box 1 mg tablet RxNorm: 347873 Tablet(s) PO as directed 09/09/2016 10/30/2016 Inactive orphenadrine citrate ER 100 mg tablet,extended release RxNor m: 860668 1 Tablet(s) PO BID for muscle spasm 09/09/2016 09/08/2016 Inactive Spiriva with HandiHaler 18 mcg and inhalation capsules RxNor m: 506781 INHALE THE ENTIRE CONTENTS OF 1 CAPSULE ONCE A DAY USING HANDIHALER 09/01/201605/2017 Inactive Daliresp 500 mcg tablet RxNorm: 4701489 1 Tablet(s) PO QD 08/27/2016 03/01/2017 Inactive prednisone 20 mg tablet RxNorm: 522934 3 Tablet(s) PO T ID for 3 days then 1 po BID for 3 days then one daily for 3 days 08/26/2016 04/28/2017 Inactiv e Wellbutrin XL 300 mg 24 hr tablet, extended release RxNorm: 673641 TAKE ONE TABLET BY MOUTH EVERY MORNING 07/29/2016 10/26/2016 Inactive gabapentin 600 mg tablet RxNorm: 429609 1 Tablet(s) PO BID 06/26/20 16 12/22/2016 Inactive fluoxetine 40 mg capsule RxNorm: 363677 TAKE ONE CAPSULE BY BENOIT TH EVERY MORNING 06/24/2016 11/20/2016 Inactive Duragesic 100 mcg/hr transdermal patch RxNorm: 661612 2 Application TD Q48H for pain 06/05/2016 07/04/2016 Inactive oxycodone 10 mg tablet RxNorm: 2079536 1-2 Tablet(s) PO QID as n eeded for pain 06/05/2016 03/17/2017 Inactive Belladonna-Phenobarbital 48 mg tablet,extended release RxNor m: 2 Tablet(s) PO TID 06/05/2016 01/19/2017 Inactive Premarin 0.45 mg tablet RxNorm: 389820 TAKE ONE TABLET BY MOUTH DAILY 05/27/2016 09/23/2016 Inactive Topamax 100 mg tablet RxNorm: 637131 TAKE ONE TABLET BY MOUTH EVERY NIGHT AT BEDTIME 05/27/2016 09/27/2016 Inactive Synthroid 112 mcg tablet RxNorm: 515725 TAKE ONE TABLET BY MOUT H DAILY 05/27/2016 09/23/2016 Inactive metformin ER 500 mg tablet,extended release 24 hr RxNorm: 86 0975 TAKE ONE TABLET BY MOUTH DAILY 05/27/2016 09/23/2016 Inactive Symbicort 160 mcg-4.5 mcg/actuation HFA aerosol inhaler RxNo rm: 7387980 INHALE TWO PUFFS TWO TIMES A DAY 05/27/2016 10/23/2016 Inactive Ventolin HFA 90 mcg/actuation aerosol inhaler RxNorm: 968054 INHALE TWO PUFFS BY MOUTH EVERY 4 HOURS NEEDED 05/21/2016 07/07/2016 Inactive omeprazole 40 mg capsule,delayed release RxNorm: 941991 1 Capsu le(s) PO QD 05/06/2016 08/03/2016 Inactive metformin ER 500 mg tablet,extended release 24 hr RxNorm: 86 0975 TAKE ONE TABLET BY MOUTH DAILY 04/23/2016 05/22/2016 Inactive methocarbamol 750 mg tablet RxNorm: 190880 2 Tablet(s) PO TID as needed for muscle spasm 04/23/2016 09/08/2016 Inactive Synthroid 112 mcg tablet RxNorm: 228993 TAKE ONE TABLET BY MOUT H DAILY 04/23/2016 05/22/2016 Inactive Spiriva with HandiHaler 18 mcg and inhalation capsules RxNor m: 688747 INHALE THE ENTIRE CONTENTS OF 1 CAPSULE ONCE A DAY USING HANDIHALER 04/09/201608/2016 Inactive Diflucan 100 mg tablet RxNorm: 008370 1 Tablet(s) PO QD 04/08/2016 Inactive doxycycline hyclate 100 mg capsule RxNorm: 0033465 1 Capsule(s) PO BID 04/08/2016 04/17/2016 Inactive doxycycline hyclate 100 mg capsule RxNorm: 9726721 1 Capsule(s) PO BID 04/08/2016 04/07/2016 Inactive Diflucan 100 mg tablet RxNorm: 084086 1 Tablet(s) PO QD 04/08/2016 Inactive ondansetron HCl 4 mg tablet RxNorm: 119981 1 Tablet(s) PO Q4H as needed for nausea and vomiting 04/08/2016 09/22/2017 Inactive gabapentin 600 mg tablet RxNorm: 255657 TAKE ONE TABLET BY MOUT H TWICE A DAY 03/24/2016 06/25/2016 Inactive Synthroid 112 mcg tablet RxNorm: 419099 TAKE ONE TABLET BY MOUT H DAILY 02/25/2016 04/22/2016 Inactive Levaquin 500 mg tablet RxNorm: 098483 1 Tablet(s) PO QD 01/23/2016 Inactive prednisone 20 mg tablet RxNorm: 885435 1 Tablet(s) PO T ID for 3 days then 1 po BID for 3 days then one daily for 3 days 01/23/2016 08/25/2016 Inactiv e RaySat Ultra Test strips RxNorm: TEST BLOOD SUGAR ONCE DAILY 250.00 01/09/2016 11/04/2017 Inactive methocarbamol 750 mg tablet RxNorm: 184555 2 Tablet(s) PO TID as needed for muscle spasm 01/09/2016 04/23/2016 Inactive lactulose 10 gram/15 mL oral solution RxNorm: 165298 [address](s) PO QD 01/09/2016 09/22/2017 Inactive TAKE 1 TABLESPOON BY MOUTH ONCE DAILY metformin ER 500 mg tablet,extended release 24 hr RxNorm: 86 0975 1 Tablet(s) PO QD 12/26/2015 04/22/2016 Inactive fluoxetine 20 mg capsule RxNorm: 195052 1 Capsule(s) PO QD 12/23/19 16 06/19/2016 Inactive Premarin 0.45 mg tablet RxNorm: 537272 TAKE ONE TABLET BY MOUTH DAILY 12/23/2015 05/20/2016 Inactive fluoxetine 40 mg capsule RxNorm: 038424 1 Capsule(s) PO QD 12/23/19 16 06/19/2016 Inactive TAKE ONE CAPSULE BY MOUTH EV JANKI MORNING azithromycin 500 mg tablet RxNorm: 489682 1 Tablet(s) PO QD 016 12/19/2015 Inactive Zofran 4 mg tablet RxNorm: 430483 1 Tablet(s) PO Q4H prn nausea /vomiting 12/13/2015 03/30/2018 Inactive azithromycin 500 mg tablet RxNorm: 093688 1 Tablet(s) PO QD 016 12/12/2015 Inactive Duragesic 100 mcg/hr transdermal patch RxNorm: 337748 2 Application TD Q48H for pain 12/09/2015 01/07/2016 Inactive oxycodone 10 mg tablet RxNorm: 2889110 1-2 Tablet(s) PO QID as n eeded for pain 12/09/2015 06/04/2016 Inactive Bactroban 2 % topical cream RxNorm: 373858 Application TOP BID 11/2208/25/2016 Inactive doxycycline hyclate 100 mg capsule RxNorm: 9625827 1 Capsule(s) PO BID 12/03/2015 12/12/2015 Inactive Topamax 100 mg tablet RxNorm: 568095 TAKE ONE TABLET BY MOUTH EVERY NIGHT AT BEDTIME 11/25/2015 05/22/2016 Inactive Symbicort 160 mcg-4.5 mcg/actuation HFA aerosol inhaler RxNo rm: 8906692 INHALE TWO PUFFS TWO TIMES A DAY 11/25/2015 05/22/2016 Inactive Synthroid 112 mcg tablet RxNorm: 458148 Tablet(s) TAKE ONE TABLET BY MOUTH DAILY 11/25/2015 02/22/2016 Inactive omeprazole 40 mg capsule,delayed release RxNorm: 125083 1 Capsu le(s) PO QD 11/12/2015 05/05/2016 Inactive oxycodone 10 mg tablet RxNorm: 7838433 1-2 Tablet(s) PO QID as n eeded for pain 11/05/2015 12/08/2015 Inactive Duragesic 100 mcg/hr transdermal patch RxNorm: 505790 2 Application TD Q48H for pain 11/05/2015 12/04/2015 Inactive omeprazole 40 mg capsule,delayed release RxNorm: 807007 1 Capsu le(s) PO QD 10/07/2015 11/11/2015 Inactive Januvia 100 mg tablet RxNorm: 342231 TAKE ONE TABLET BY MOUTH DAILY 09/11/2015 12/25/2015 Inactive Zithromax 500 mg tablet RxNorm: 869323 1 Tablet(s) PO QD 09/10/2015 1 Inactive prednisone 20 mg tablet RxNorm: 792453 1 Tablet(s) PO T ID for 3 days then 1 po BID for 3 days then one daily for 3 days 09/10/2015 08/25/2016 Inactiv e Wellbutrin XL 300 mg 24 hr tablet, extended release RxNorm: 680521 1 Tablet(s) PO QAM 09/10/2015 12/02/2015 Inactive Topamax 100 mg tablet RxNorm: 885323 TAKE ONE TABLET BY MOUTH EVERY NIGHT AT BEDTIME 09/02/2015 11/24/2015 Inactive Synthroid 112 mcg tablet RxNorm: 500868 TAKE ONE TABLET BY MOUT H DAILY 09/02/2015 11/25/2015 Inactive methocarbamol 750 mg tablet RxNorm: 698182 2 Tablet(s) PO TID as needed for muscle spasm 08/15/2015 01/09/2016 Inactive Wellbutrin XL 150 mg 24 hr tablet, extended release RxNorm: 274779 TAKE ONE TABLET BY MOUTH EVERY MORNING 08/13/2015 08/13/2015 Inactive gabapentin 600 mg tablet RxNorm: 969504 1 Tablet(s) PO BID 08/13/20 15 02/08/2016 Inactive Wellbutrin XL 300 mg 24 hr tablet, extended release RxNorm: 071364 1 Tablet(s) PO QAM 08/06/2015 09/09/2015 Inactive Wellbutrin XL 150 mg 24 hr tablet, extended release RxNorm: 162786 1 Tablet(s) PO QAM 07/18/2015 08/05/2015 Inactive prednisone 20 mg tablet RxNorm: 504201 1 Tablet(s) PO BID 07/18/2015 07/22/2015 Inactive doxycycline hyclate 100 mg tablet,delayed release RxNorm: 43 4018 1 Tablet(s) PO BID 07/18/2015 07/27/2015 Inactive pravastatin 40 mg tablet RxNorm: 547676 1 Tablet(s) PO QD NEEDS FASTING LAB 07/15/2015 07/14/2015 Inactive pravastatin 40 mg tablet RxNorm: 360825 1 Tablet(s) PO QD NEEDS FASTING LAB 07/15/2015 01/25/2018 Inactive Ventolin HFA 90 mcg/actuation aerosol inhaler RxNorm: 252241 2 Puff(s) INH Q4H 07/08/2015 07/07/2015 Inactive prn Premarin 0.45 mg tablet RxNorm: 824628 1 Tablet(s) PO QD 07/01/2015 0 12/22/2015 Inactive pravastatin 40 mg tablet RxNorm: 318535 1 Tablet(s) PO QD NEEDS FASTING LAB 06/14/2015 07/15/2015 Inactive Ventolin HFA 90 mcg/actuation aerosol inhaler RxNorm: 2356099 2 Puff(s) INH Q4H 06/06/2015 07/08/2015 Inactive prn albuterol sulfate 2.5 mg/3 mL (0.083 %) solution for n ebulization RxNorm: 734422 1 Unit Dose INH QID 05/30/2015 No Stop Date Active Duragesic 100 mcg/hr transdermal patch RxNorm: 575256 2 Application TD Q48H for pain 04/29/2015 05/28/2015 Inactive gabapentin 600 mg tablet RxNorm: 822798 1 Tablet(s) PO BID 04/11/20 15 08/13/2015 Inactive Onglyza 5 mg tablet RxNorm: 692385 1 Tablet(s) PO QD for blood suga r 04/10/2015 04/15/2015 Inactive [Brand Copay Card: RxBIN:[id number] PCN:CN RxGRP:[id number] ID#:[id number]] methocarbamol 750 mg tablet RxNorm: 437620 2 Tablet(s) PO TID as needed for muscle spasm 03/28/2015 08/15/2015 Inactive pravastatin 40 mg tablet RxNorm: 616174 1 Tablet(s) PO QD 03/19/2015 03/18/2015 Inactive pravastatin 40 mg tablet RxNorm: 623123 1 Tablet(s) PO QD 03/19/2015 06/14/2015 Inactive lactulose 10 gram/15 mL oral solution RxNorm: 779722 [address]s) PO QD 03/07/2015 01/09/2016 Inactive TAKE 1 TABLESPOON BY MOUTH ONCE DAILY oxycodone 20 mg tablet RxNorm: 5205924 1 Tablet(s) PO QID as nee ded for pain 03/05/2015 07/08/2015 Inactive Topamax 100 mg tablet RxNorm: 458509 1 Tablet(s) PO QHS TAKE ONE TABLET BY MOUTH AT BEDTIME 02/25/2015 02/12/2019 Inactive metformin ER 500 mg tablet,extended release 24 hr RxNorm: 86 0975 1 Tablet(s) PO QD 02/11/2015 03/04/2015 Inactive take one tablet by mouth every day Daliresp 500 mcg tablet RxNorm: 7599535 1 Tablet(s) PO QD 02/11/2015 08/09/2015 Inactive Endocet 10 mg-325 mg tablet RxNorm: 2709679 1 Tablet(s) PO Q4H as needed for pain 01/23/2015 01/23/2015 Inactive gabapentin 600 mg tablet RxNorm: 044294 1 Tablet(s) PO BID 01/23/20 15 04/11/2015 Inactive methocarbamol 750 mg tablet RxNorm: 821407 2 Tablet(s) PO TID as needed for muscle spasm 01/15/2015 02/13/2015 Inactive fluoxetine 40 mg capsule RxNorm: 863514 1 Capsule(s) PO QD 01/14/20 15 12/23/2015 Inactive TAKE ONE CAPSULE BY MOUTH EV JANKI MORNING fluoxetine 20 mg capsule RxNorm: 926827 1 Capsule(s) PO QD 01/14/20 15 12/23/2015 Inactive Premarin 0.45 mg tablet RxNorm: 982706 1 Tablet(s) PO QD 01/02/2015 0 07/01/2015 Inactive Endocet 10 mg-325 mg tablet RxNorm: 9950517 1-2 Tablet(s) PO Q4H 02/12/2019 Inactive PRN PAIN Duragesic 100 mcg/hr transdermal patch RxNorm: 854116 2 Application TD Q48H for pain 12/25/2014 01/23/2015 Inactive Topamax 100 mg tablet RxNorm: 407996 1 Tablet(s) PO QHS TAKE ONE TABLET BY MOUTH AT BEDTIME 12/25/2014 02/24/2015 Inactive Tudorza Pressair 400 mcg/actuation breath activated RxNorm: 3558144 1 BID INHALE ONE PUFF INTO LUNGS TWO TIMES A DAY 12/17/2014 05/15/2015 Inactive Endocet 10 mg-325 mg tablet RxNorm: 9811589 1-2 Tablet(s) PO Q4H 12/19/2014 Inactive PRN PAIN Duragesic 100 mcg/hr transdermal patch RxNorm: 225085 2 Application TD Q48H for pain 11/20/2014 12/24/2014 Inactive Mark43Touch Ultra Test strips RxNorm: TEST BLOOD SUGAR ONCE DAILY 250.00 11/16/2014 01/08/2016 Inactive omeprazole 40 mg capsule,delayed release RxNorm: 569505 1 Capsu le(s) PO QD 11/13/2014 11/12/2015 Inactive metformin ER 500 mg tablet,extended release 24 hr RxNorm: 86 0975 1 Tablet(s) PO QD 11/12/2014 02/11/2015 Inactive take one tablet by mouth every day Symbicort 160 mcg-4.5 mcg/actuation HFA aerosol inhaler RxNo rm: 6082252 2 Puff(s) INH BID 11/12/2014 03/11/2015 Inactive INHALE 2 PUFFS O RALLY TWO TIMES A DAY gabapentin 800 mg tablet RxNorm: 243465 1 Tablet(s) PO QD TAKE ONE TABLET BY MOUTH ONCE A DAY 10/22/2014 01/01/2015 Inactive Endocet 10 mg-325 mg tablet RxNorm: 3132557 1-2 Tablet(s) PO Q4H 11/15/2014 Inactive PRN PAIN Duragesic 100 mcg/hr transdermal patch RxNorm: 316334 2 Application TD Q48H for pain 10/17/2014 11/19/2014 Inactive gabapentin 800 mg tablet RxNorm: 830825 1 Tablet(s) PO QD TAKE ONE TABLET BY MOUTH ONCE A DAY 10/04/2014 10/21/2014 Inactive Premarin 0.9 mg tablet RxNorm: 809654 1 Tablet(s) PO QD TAKE ONE TABLET BY MOUTH ONCE A DAY 10/04/2014 01/01/2015 Inactive Spiriva with HandiHaler 18 mcg & inhalation capsules RxNorm: 287569 1 Capsule(s) INH QD 10/03/2014 04/30/2015 Inactive Levaquin 500 mg tablet RxNorm: 984654 1 Tablet(s) PO QD 10/03/2014 Inactive prednisone 20 mg tablet RxNorm: 688849 1 Tablet(s) PO QD 10/03/2014 1 12/09/2013 Inactive Duragesic 100 mcg/hr transdermal patch RxNorm: 252182 2 Application TD Q48H for pain 09/18/2014 10/16/2014 Inactive Endocet 10 mg-325 mg tablet RxNorm: 5550890 1-2 Tablet(s) PO Q4H 10/16/2014 Inactive PRN PAIN Synthroid 112 mcg tablet RxNorm: 746666 1 Tablet(s) QD 09/10/2014 Inactive Synthroid 112 mcg tablet RxNorm: 974225 TAKE ONE TABLET BY MOUTH ONE TIME A DAY. NEEDS LABS 09/10/2014 02/06/2015 Inactive omeprazole 40 mg capsule,delayed release RxNorm: 133273 1 Capsu le(s) PO QD 09/03/2014 11/13/2014 Inactive omeprazole 40 mg capsule,delayed release RxNorm: 636584 1 Capsu le(s) PO QD 09/03/2014 09/02/2014 Inactive Spiriva with HandiHaler 18 mcg & inhalation capsules RxNorm: 958661 1 Capsule(s) INH QD 08/27/2014 10/02/2014 Inactive gabapentin 600 mg tablet RxNorm: 963402 1 Tablet(s) PO BID 08/27/20 14 10/22/2014 Inactive Endocet 10 mg-325 mg tablet RxNorm: 0389447 1-2 Tablet(s) PO Q4H 09/17/2014 Inactive PRN PAIN fentanyl 100 mcg/hr transdermal patch RxNorm: 350010 1 Unit Dos e TD QD 08/21/2014 09/19/2014 Inactive Daliresp 500 mcg tablet RxNorm: 7429973 1 Tablet(s) PO QD 08/13/2014 02/11/2015 Inactive Synthroid 112 mcg tablet RxNorm: 869867 TAKE ONE TABLET BY MOUTH ONE TIME A DAY. NEEDS LABS 08/10/2014 09/10/2014 Inactive Endocet 10 mg-325 mg tablet RxNorm: 3798224 1-2 Tablet(s) PO Q4H 08/17/2014 Inactive PRN PAIN Duragesic 100 mcg/hr transdermal patch RxNorm: 514046 2 Application TD Q48H for pain 07/19/2014 09/17/2014 Inactive fluoxetine 40 mg capsule RxNorm: 712813 1 Capsule(s) PO QD 07/17/20 14 01/14/2015 Inactive TAKE ONE CAPSULE BY MOUTH EV JANKI MORNING fluoxetine 20 mg capsule RxNorm: 348424 1 Capsule(s) PO QD 07/17/20 14 01/14/2015 Inactive Spiriva with HandiHaler 18 mcg & inhalation capsules RxNorm: 423354 1 Capsule(s) INH QD 07/17/2014 08/26/2014 Inactive INHALE CONTENTS OF 1 CAPSULE(S) WITH HANDIHALER ONCE DAILY Zofran 4 mg tablet RxNorm: 090894 1 Tablet(s) PO Q4H prn nausea 07/25/2014 Inactive Synthroid 112 mcg tablet RxNorm: 356826 1 Tablet(s) PO QD 07/09/2014 07/09/2014 Inactive methocarbamol 750 mg tablet RxNorm: 767581 2 Tablet(s) PO TID as needed for muscle spasm 07/09/2014 09/06/2014 Inactive Synthroid 112 mcg tablet RxNorm: 854174 1 Tablet(s) PO QD - nee d labs 07/09/2014 08/07/2014 Inactive Medrol (Aníbal) 4 mg tablets in a dose pack RxNorm: 298855 6 Tablet(s) PO QD --then as directed 07/03/2014 07/08/2014 Inactive Tudorza Pressair 400 mcg/actuation breath activated RxNorm: 5438400 1 Puff(s) INH BID 07/03/2014 12/17/2014 Inactive cefdinir 300 mg capsule RxNorm: 071662 1 Capsule(s) PO BID 07/03/20 14 07/12/2014 Inactive Topamax 100 mg tablet RxNorm: 662545 Tablet(s) TAKE ONE TABLET BY MOUTH AT BEDTIME 07/02/2014 02/25/2015 Inactive Duragesic 100 mcg/hr transdermal patch RxNorm: 635562 2 Application TD Q48H for pain 06/25/2014 07/18/2014 Inactive Endocet 10 mg-325 mg tablet RxNorm: 7446276 1-2 Tablet(s) PO Q4H 07/18/2014 Inactive PRN PAIN metformin ER 500 mg tablet,extended release 24 hr RxNorm: 86 0975 1 Tablet(s) PO QD Needs labs 06/18/2014 07/01/2014 Inactive take one tablet by mouth every day Duragesic 100 mcg/hr transdermal patch RxNorm: 175296 2 Application TD Q48H for pain 05/22/2014 06/24/2014 Inactive Synthroid 112 mcg tablet RxNorm: 685267 1 Tablet(s) PO QD 05/22/2014 07/09/2014 Inactive Endocet 10 mg-325 mg tablet RxNorm: 0820409 1-2 Tablet(s) PO Q4H 06/20/2014 Inactive PRN PAIN Endocet 10 mg-325 mg tablet RxNorm: 7181614 1-2 Tablet(s) PO Q4H 05/21/2014 Inactive PRN PAIN Duragesic 100 mcg/hr transdermal patch RxNorm: 668184 2 Application TD Q48H for pain 04/25/2014 05/21/2014 Inactive Daliresp 500 mcg tablet RxNorm: 3695578 1 Tablet(s) PO QD 04/24/2014 08/13/2014 Inactive Symbicort 160 mcg-4.5 mcg/actuation HFA aerosol inhaler RxNo rm: 8023227 2 Puff(s) INH BID 04/24/2014 08/21/2014 Inactive INHALE 2 PUFFS O RALLY TWO TIMES A DAY metformin ER 500 mg tablet,extended release 24 hr RxNorm: 86 0975 1 Tablet(s) PO QD 04/24/2014 11/12/2014 Inactive TAKE ONE TABLET BY MOUTH EVERY DAY [AttnRPh:Saving Apply/Adjudicate RxGRP:LDMGRP RxBIN:[id number] RxPCN:2012 PCode: ID#:[id number]] Symbicort 160 mcg-4.5 mcg/actuation HFA aerosol inhaler RxNo rm: [id number] 2 Puff(s) INH BID 04/24/2014 11/12/2014 Inactive INHALE 2 PUFFS O RALLY TWO TIMES A DAY Premarin 0.9 mg tablet RxNorm: 186217 1 Tablet(s) PO QD 04/24/2014 Inactive TAKE ONE TABLET BY MOUTH EVERY DAY metformin ER 500 mg tablet,extended release 24 hr RxNorm: 86 0975 1 Tablet(s) PO QD Needs labs 04/24/2014 06/18/2014 Inactive TAKE ONE TABLET BY MOUTH EVERY DAY [AttnRPh:Saving Apply/Adjudicate RxGRP:LDMGRP RxBIN:[id number] RxPCN:2012 PCode: ID#:[id number]] gabapentin 800 mg tablet RxNorm: 451992 1 Tablet(s) PO QD 04/24/2014 10/04/2014 Inactive TAKE ONE TABLET BY MOUTH EVERY DAY Topamax 100 mg tablet RxNorm: 993191 1 Tablet(s) PO QHS 04/17/2014 Inactive Topamax 100 mg tablet RxNorm: 719339 TAKE ONE TABLET BY MOUTH A T BEDTIME 04/17/2014 07/01/2014 Inactive Tudorza Pressair 400 mcg/actuation breath activated RxNorm: 7361625 1 Puff(s) INH BID 04/11/2014 07/02/2014 Inactive Duragesic 100 mcg/hr transdermal patch RxNorm: 626073 2 Application TD Q48H for pain 03/27/2014 04/24/2014 Inactive Endocet 10 mg-325 mg tablet RxNorm: 7678303 1-2 Tablet(s) PO Q4H 04/24/2014 Inactive PRN PAIN Robaxin 750 mg tablet RxNorm: 646222 2 Tablet(s) PO TID as need ed for spasm 02/23/2014 03/28/2015 Inactive Duragesic 100 mcg/hr transdermal patch RxNorm: 266003 2 Application TD Q48H for pain 02/23/2014 No Stop Date Active Endocet 10 mg-325 mg tablet RxNorm: 3986263 1-2 Tablet(s) PO Q4H 03/23/2014 Inactive PRN PAIN Synthroid 112 mcg tablet RxNorm: 809507 1 Tablet(s) PO QD TAKE ONE TABLET BY MOUTH EVERY DAY 02/15/2014 05/22/2014 Inactive Zithromax 500 mg tablet RxNorm: 265244 1 Tablet(s) PO QD 01/30/2014 0 02/05/2014 Inactive Diflucan 100 mg tablet RxNorm: 609757 1 Tablet(s) PO QD 01/30/2014 Inactive prednisone 20 mg tablet RxNorm: 265579 1 Tablet(s) PO BID 01/30/2014 02/05/2014 Inactive fluoxetine 40 mg capsule RxNorm: 754591 1 Capsule(s) PO QD 01/23/20 14 07/16/2014 Inactive TAKE ONE CAPSULE BY MOUTH EV JANKI MORNING fluoxetine 40 mg capsule RxNorm: 197909 1 Capsule(s) PO QD 01/23/20 14 07/17/2014 Inactive TAKE ONE CAPSULE BY MOUTH EV JANKI MORNING cefdinir 300 mg capsule RxNorm: 658117 1 Capsule(s) PO BID 01/16/20 14 01/29/2014 Inactive Zithromax 500 mg tablet RxNorm: 046215 1 Tablet(s) PO QD 01/16/2014 0 01/22/2014 Inactive prednisone 20 mg tablet RxNorm: 888543 1 Tablet(s) PO BID 01/16/2014 01/22/2014 Inactive Spiriva with HandiHaler 18 mcg and inhalation capsules RxNor m: 679324 1 Capsule(s) INH QD 12/18/2013 07/17/2014 Inactive INHALE CONTENT S OF 1 CAPSULE(S) WITH HANDIHALER ONCE DAILY fluoxetine 20 mg capsule RxNorm: 774241 1 Capsule(s) PO QD 12/18/19 14 06/15/2014 Inactive Spiriva with HandiHaler 18 mcg & inhalation capsules RxNorm: 070389 1 Capsule(s) INH QD 12/18/2013 06/15/2014 Inactive INHALE CONTENTS OF 1 CAPSULE(S) WITH HANDIHALER ONCE DAILY fluoxetine 20 mg capsule RxNorm: 757566 1 Capsule(s) PO QD 12/18/19 14 07/17/2014 Inactive cefdinir 300 mg capsule RxNorm: 621851 2 Capsule(s) PO QD 12/12/2013 12/21/2013 Inactive Duragesic 100 mcg/hr transdermal patch RxNorm: 396800 2 Application TD Q48H for pain 12/08/2013 12/07/2013 Inactive Topamax 100 mg tablet RxNorm: 729005 1 Tablet(s) PO QHS 12/04/2013 Inactive Endocet 10 mg-325 mg tablet RxNorm: 9601909 1-2 Tablet(s) PO Q4H 12/26/2013 Inactive PRN PAIN Robaxin 750 mg tablet RxNorm: 749930 2 Tablet(s) PO TID as need ed for spasm 11/07/2013 01/05/2014 Inactive gabapentin 800 mg tablet RxNorm: 734257 1 Tablet(s) PO QD 10/16/2013 04/24/2014 Inactive TAKE ONE TABLET BY MOUTH EVERY DAY Symbicort 160 mcg-4.5 mcg/actuation HFA aerosol inhaler RxNo rm: 9829691 2 Puff(s) INH BID 10/16/2013 04/24/2014 Inactive INHALE 2 PUFFS O RALLY TWO TIMES A DAY Premarin 0.9 mg tablet RxNorm: 705130 1 Tablet(s) PO QD 10/16/2013 Inactive TAKE ONE TABLET BY MOUTH EVERY DAY metformin ER 500 mg tablet,extended release 24 hr RxNorm: 86 0975 1 Tablet(s) PO QD 10/16/2013 04/24/2014 Inactive TAKE ONE TABLET BY MOUTH EVERY DAY Daliresp 500 mcg tablet RxNorm: 4383834 1 Tablet(s) PO QD 10/16/2013 04/24/2014 Inactive Robaxin 750 mg tablet RxNorm: 122876 2 Tablet(s) PO TID as need ed for spasm 10/10/2013 11/06/2013 Inactive Duragesic 100 mcg/hr transdermal patch RxNorm: 675294 2 Application TD Q48H for pain 10/09/2013 No Stop Date Active Soma 350 mg tablet RxNorm: 674116 1 Tablet(s) PO TID 09/27/201310/09 Inactive TAKE ONE TABLET BY MOUTH THREE TIMES A D AY lactulose 10 gram/15 mL oral solution RxNorm: 827119 [address](s) PO QD 09/13/2013 03/07/2015 Inactive TAKE 1 TABLESPOON BY MOUTH ONCE DAILY Duragesic 100 mcg/hr transdermal patch RxNorm: 341867 2 Application TD Q48H for pain 09/06/2013 No Stop Date Active Endocet 10 mg-325 mg tablet RxNorm: 9393925 1-2 Tablet(s) PO Q4H 09/27/2013 Inactive PRN PAIN lancets 28 gauge RxNorm: Miscellaneous As needed for blo od glucose sticks 08/24/2013 No Stop Date Active 16.2 mg-0.1037 mg-0.0194 mg tablet RxNorm: 6834959 Tablet(s) PO PRN for gas and cramping 08/24/2013 01/19/2017 Inactive TAKE TWO TABLET S BY MOUTH THREE TIMES A DAY NEEDED FOR GAS AND CRAMPING Topamax 100 mg tablet RxNorm: 264869 1 Tablet(s) PO QHS 07/31/2013 Inactive Diflucan 100 mg tablet RxNorm: 925080 1 Tablet(s) PO QD 07/27/2013 Inactive cefdinir 300 mg capsule RxNorm: 284930 1 Capsule(s) PO BID 07/26/20 13 08/08/2013 Inactive Daliresp 500 mcg tablet RxNorm: 1790937 1 Tablet(s) PO QD 07/25/2013 10/15/2013 Inactive fluoxetine 40 mg capsule RxNorm: 650399 1 Capsule(s) PO QD 07/25/20 13 01/22/2014 Inactive TAKE ONE CAPSULE BY MOUTH EV JANKI MORNING Senokot-S 8.6 mg-50 mg tablet RxNorm: 3927916 1 Tablet(s) PO BID 10/25/2013 Inactive doxycycline hyclate 100 mg capsule RxNorm: 3600293 1 Capsule(s) PO BID 06/28/2013 07/07/2013 Inactive prednisone 20 mg tablet RxNorm: 539634 1 Tablet(s) PO BID 06/28/2013 07/04/2013 Inactive Zofran 4 mg tablet RxNorm: 614126 1 Tablet(s) PO Q4H prn nausea 03/201307/05/2013 Inactive Spiriva with HandiHaler 18 mcg & inhalation capsules RxNorm: 719062 1 Capsule(s) INH QD 06/26/2013 12/18/2013 Inactive INHALE CONTENTS OF 1 CAPSULE(S) WITH HANDIHALER ONCE DAILY Synthroid 112 mcg tablet RxNorm: 693219 1 Tablet(s) PO QD TAKE ONE TABLET BY MOUTH EVERY DAY 06/19/2013 02/15/2014 Inactive fluoxetine 20 mg capsule RxNorm: 008905 1 Capsule(s) PO QD 06/19/20 13 12/18/2013 Inactive Ventolin HFA 90 mcg/actuation Aerosol Inhaler RxNorm: 4685695 2 Puff(s) INH Q4H 06/05/2013 No Stop Date Active prn Soma 350 mg tablet RxNorm: 567554 1 Tablet(s) PO TID 06/05/201307/04 Inactive TAKE ONE TABLET BY MOUTH THREE TIMES A D AY prednisone 20 mg tablet RxNorm: 045737 1 Tablet(s) PO QD 05/31/2013 0 06/06/2013 Inactive Topamax 100 mg tablet RxNorm: 487652 1 Tablet(s) PO QHS 05/22/2013 Inactive Levaquin 500 mg tablet RxNorm: 309246 1 Tablet(s) PO QD 05/03/2013 Inactive Diflucan 100 mg tablet RxNorm: 965623 1 Tablet(s) PO QD 05/03/2013 Inactive Daliresp 500 mcg tablet RxNorm: 1316901 1 Tablet(s) PO QD 05/01/2013 07/24/2013 Inactive Daliresp 500 mcg tablet RxNorm: 8937041 1 Tablet(s) PO QD 05/01/2013 04/30/2013 Inactive gabapentin 800 mg tablet RxNorm: 860189 1 Tablet(s) PO QD 04/10/2013 10/06/2013 Inactive TAKE ONE TABLET BY MOUTH EVERY DAY metformin ER 500 mg tablet,extended release 24 hr RxNorm: 86 0977 1 Tablet(s) PO QD 04/10/2013 10/06/2013 Inactive TAKE ONE TABLET BY MOUTH EVERY DAY Premarin 0.9 mg tablet RxNorm: 571746 1 Tablet(s) PO QD 04/10/2013 Inactive TAKE ONE TABLET BY MOUTH EVERY DAY Symbicort 160 mcg-4.5 mcg/actuation HFA aerosol inhaler RxNo rm: 7153113 2 Puff(s) INH BID 04/10/2013 10/06/2013 Inactive INHALE 2 PUFFS O RALLY TWO TIMES A DAY Synthroid 112 mcg tablet RxNorm: 963560 1 Tablet(s) PO QD TAKE ONE TABLET BY MOUTH EVERY DAY 04/10/2013 06/18/2013 Inactive Ventolin HFA 90 mcg/actuation Aerosol Inhaler RxNorm: 3934886 2 Puff(s) INH Q4H 04/10/2013 No Stop Date Active prn fentanyl 100 mcg/hr transdermal patch RxNorm: 332495 1 Unit Dos e TD QD 04/03/2013 05/02/2013 Inactive Endocet 10 mg-325 mg tablet RxNorm: 7339484 1-2 Tablet(s) PO Q4H 05/02/2013 Inactive PRN PAIN Topamax 100 mg tablet RxNorm: 271758 1 Tablet(s) PO QHS 03/13/2013 Inactive Reglan 10 mg tablet RxNorm: 291070 1 Tablet(s) PO QID b efore meals and at bedtime 03/13/2013 04/09/2015 Inactive fluoxetine 20 mg capsule RxNorm: 387760 1 Capsule(s) PO QD 02/28/20 13 05/27/2013 Inactive Ventolin HFA 90 mcg/actuation Aerosol Inhaler RxNorm: 8447388 2 Puff(s) INH Q4H 02/13/2013 No Stop Date Active prn fluoxetine 40 mg capsule RxNorm: 367011 1 Capsule(s) PO QD 01/31/20 13 07/24/2013 Inactive TAKE ONE CAPSULE BY MOUTH EV JANKI MORNING Soma 350 mg tablet RxNorm: 763057 1 Tablet(s) PO TID 01/20/201302/18 Inactive TAKE ONE TABLET BY MOUTH THREE TIMES A D AY Endocet 10 mg-325 mg tablet RxNorm: 6093960 1-2 Tablet(s) PO Q4H 02/06/2013 Inactive PRN PAIN MS Contin 200 mg tablet,extended release RxNorm: 780667 1 Table t(s) PO BID 01/18/2013 02/06/2013 Inactive Ventolin HFA 90 mcg/actuation Aerosol Inhaler RxNorm: 9791111 2 Puff(s) INH Q4H 01/04/2013 No Stop Date Active prn Spiriva with HandiHaler 18 mcg & inhalation capsules RxNorm: 159665 1 Capsule(s) INH QD 12/29/2012 06/25/2013 Inactive INHALE CONTENTS OF 1 CAPSULE(S) WITH HANDIHALER ONCE DAILY Spiriva with HandiHaler 18 mcg & inhalation capsules RxNorm: 248912 1 Capsule(s) INH QD 12/26/2012 12/28/2012 Inactive INHALE CONTENTS OF 1 CAPSULE(S) WITH HANDIHALER ONCE DAILY Synthroid 112 mcg tablet RxNorm: 499679 Tablet(s) PO TA KE ONE TABLET BY MOUTH EVERY DAY 12/26/2012 04/09/2013 Inactive Endocet 10 mg-325 mg tablet RxNorm: 7758758 1-2 Tablet(s) PO Q4H 01/17/2013 Inactive PRN PAIN MS Contin 200 mg tablet,extended release RxNorm: 442053 1 Table t(s) PO BID 12/21/2012 01/17/2013 Inactive fluoxetine 20 mg capsule RxNorm: 065660 1 Capsule(s) PO QD 12/06/19 13 02/26/2013 Inactive Synthroid 112 mcg tablet RxNorm: 751574 1 Tablet(s) PO QD 12/06/2012 02/12/2019 Inactive TAKE ONE TABLET BY MOUTH EVERY DAY Ventolin HFA 90 mcg/actuation Aerosol Inhaler RxNorm: 6365794 2 Puff(s) INH Q4H 12/06/2012 No Stop Date Active prn Reglan 10 mg tablet RxNorm: 059565 1 Tablet(s) PO QID b efore meals and at bedtime 11/24/2012 03/12/2013 Inactive Topamax 100 mg tablet RxNorm: 279502 1 Tablet(s) PO QHS 11/16/2012 Inactive Ventolin HFA 90 mcg/actuation Aerosol Inhaler RxNorm: 3838725 2 Puff(s) INH Q4H 11/09/2012 No Stop Date Active prn gabapentin 800 mg tablet RxNorm: 791477 1 Tablet(s) PO QD 10/27/2012 04/09/2013 Inactive TAKE ONE TABLET BY MOUTH EVERY DAY metformin ER 500 mg tablet,extended release 24 hr RxNorm: 86 0977 1 Tablet(s) PO QD 10/27/2012 04/09/2013 Inactive TAKE ONE TABLET BY MOUTH EVERY DAY Symbicort 160 mcg-4.5 mcg/actuation HFA Aerosol Inhaler RxNo rm: 8474363 2 Puff(s) INH BID 10/27/2012 04/09/2013 Inactive INHALE 2 PUFFS O RALLY TWO TIMES A DAY Premarin 0.9 mg tablet RxNorm: 212450 1 Tablet(s) PO QD 10/27/2012 Inactive TAKE ONE TABLET BY MOUTH EVERY DAY Endocet 10 mg-325 mg tablet RxNorm: 5712917 1-2 Tablet(s) PO Q4H 11/24/2012 Inactive PRN PAIN MS Contin 200 mg tablet,extended release RxNorm: 484742 1 Table t(s) PO BID 10/26/2012 11/24/2012 Inactive Soma 350 mg tablet RxNorm: 596197 1 Tablet(s) PO TID 10/04/201211/02 Inactive TAKE ONE TABLET BY MOUTH THREE TIMES A D AY Ventolin HFA 90 mcg/actuation Aerosol Inhaler RxNorm: 1220437 2 Puff(s) INH Q4H 10/03/2012 No Stop Date Active prn Daliresp 500 mcg tablet RxNorm: 4703570 1 Tablet(s) PO QD 09/28/2012 09/27/2012 Inactive Daliresp 500 mcg tablet RxNorm: 5029198 1 Tablet(s) PO QD 09/28/2012 04/25/2013 Inactive fluoxetine 20 mg capsule RxNorm: 082444 1 Capsule(s) PO QD 09/05/2012/06/2012 Inactive Topamax 50 mg tablet RxNorm: 594864 Tablet(s) PO for 1w k then 1 po q HS for 1wk then 2 po q HS 08/29/2012 09/27/2012 Inactive TAKE 1/2 TABLET BY MOUTH AT BEDTIME FOR 1 WEEK, THEN 1 TABLET AT BEDTIME FOR 1 WEEK, THEN 2 TABLETS AT BEDTIME Topamax 100 mg tablet RxNorm: 548783 1 Tablet(s) PO QHS 08/29/2012 Inactive Ventolin HFA 90 mcg/actuation Aerosol Inhaler RxNorm: 4217629 2 Puff(s) INH Q4H 08/19/2012 No Stop Date Active prn Ventolin HFA 90 mcg/actuation Aerosol Inhaler RxNorm: 1341868 2 Puff(s) INH Q4H 08/15/2012 No Stop Date Active prn Synthroid 112 mcg tablet RxNorm: 739750 1 Tablet(s) PO QD 08/10/2012 11/07/2012 Inactive TAKE ONE TABLET BY MOUTH EVERY DAY Synthroid 112 mcg tablet RxNorm: 882117 1 Tablet(s) PO QD 08/01/2012 08/09/2012 Inactive TAKE ONE TABLET BY MOUTH EVERY DAY Reglan 10 mg tablet RxNorm: 339976 1 Tablet(s) PO QID b efore meals and at bedtime 08/01/2012 11/23/2012 Inactive fluoxetine 40 mg capsule RxNorm: 920444 1 Capsule(s) PO QD 08/01/20 12 01/27/2013 Inactive TAKE ONE CAPSULE BY MOUTH EV JANKI MORNING Ventolin HFA 90 mcg/actuation Aerosol Inhaler RxNorm: 6126850 2 Puff(s) INH Q4H 08/01/2012 No Stop Date Active prn Soma 350 mg tablet RxNorm: 812611 1 Tablet(s) PO TID 07/20/201208/18 Inactive TAKE ONE TABLET BY MOUTH THREE TIMES A D AY Spiriva with HandiHaler 18 mcg & inhalation capsules RxNorm: 883583 1 Capsule(s) INH 07/01/2012 12/25/2012 Inactive INHALE CONTENTS OF 1 CAPSULE(S) WITH HANDIHALER ONCE DAILY Zithromax 250 mg Tab RxNorm: 090305 2 Tablet(s) PO QD 06/28/201206/22 Inactive MS Contin 200 mg tablet,extended release RxNorm: 193461 1 Table t(s) PO BID 06/28/2012 07/27/2012 Inactive Endocet 10 mg-325 mg tablet RxNorm: 6190407 1-2 Tablet(s) PO Q4H 07/27/2012 Inactive PRN PAIN Topamax 100 mg tablet RxNorm: 687605 1 Tablet(s) PO QHS 06/28/2012 Inactive 16.2 mg-0.1037 mg-0.0194 mg tablet RxNorm: 7358120 Tablet(s) PO PRN for gas and cramping 06/08/2012 08/23/2013 Inactive TAKE TWO TABLET S BY MOUTH THREE TIMES A DAY NEEDED FOR GAS AND CRAMPING Ventolin HFA 90 mcg/actuation Aerosol Inhaler RxNorm: 8539297 2 Puff(s) INH Q4H 05/23/2012 No Stop Date Active prn Ventolin HFA 90 mcg/actuation Aerosol Inhaler RxNorm: 1484035 2 Puff(s) INH Q4H 05/11/2012 No Stop Date Active prn Synthroid 112 mcg tablet RxNorm: 314035 1 Tablet(s) PO QD 05/09/2012 07/31/2012 Inactive TAKE ONE TABLET BY MOUTH EVERY DAY gabapentin 800 mg tablet RxNorm: 831621 1 Tablet(s) PO QD 05/09/2012 10/26/2012 Inactive TAKE ONE TABLET BY MOUTH EVERY DAY fluoxetine 40 mg capsule RxNorm: 344084 1 Capsule(s) PO QD 05/09/2007/31/2012 Inactive TAKE ONE CAPSULE BY MOUTH RAFAELA JANKI MORNING metformin ER 500 mg tablet,extended release 24 hr RxNorm: 86 0977 1 Tablet(s) PO QD 05/09/2012 10/26/2012 Inactive TAKE ONE TABLET BY MOUTH EVERY DAY Premarin 0.9 mg tablet RxNorm: 218286 1 Tablet(s) PO QD 05/09/2012 Inactive TAKE ONE TABLET BY MOUTH EVERY DAY Symbicort 160 mcg-4.5 mcg/actuation HFA Aerosol Inhaler RxNo rm: 4418727 2 Puff(s) INH BID 05/09/2012 10/26/2012 Inactive INHALE 2 PUFFS O RALLY TWO TIMES A DAY Endocet 10 mg-325 mg Tab RxNorm: 5529482 1-2 Tablet(s) PO Q4H 04/2705/26/2012 Inactive PRN PAIN MS Contin 200 mg Tab RxNorm: 824263 1 Tablet(s) PO BID 04/26/201202/2012 Inactive Ventolin HFA 90 mcg/actuation Aerosol Inhaler RxNorm: 0844974 2 Puff(s) INH Q4H 04/25/2012 05/10/2012 Inactive prn Soma 350 mg tablet RxNorm: 489757 2 Tablet(s) PO TID 04/19/201207/19 Inactive TAKE ONE TABLET BY MOUTH THREE TIMES A D AY Ventolin HFA 90 mcg/actuation Aerosol Inhaler RxNorm: 0801772 2 Puff(s) INH Q4H 04/12/2012 04/24/2012 Inactive prn Reglan 10 mg tablet RxNorm: 329299 1 Tablet(s) PO QID b efore meals and at bedtime 04/11/2012 07/31/2012 Inactive MS Contin 200 mg Tab RxNorm: 163372 1 Tablet(s) PO BID 03/30/201202/2012 Inactive Endocet 10 mg-325 mg Tab RxNorm: 6806109 1-2 Tablet(s) PO Q4H 03/3004/26/2012 Inactive PRN PAIN MS Contin 200 mg Tab RxNorm: 125011 1 Tablet(s) PO BID 03/02/201206/2012 Inactive Endocet 10 mg-325 mg Tab RxNorm: 3092710 1-2 Tablet(s) PO Q4H 03/0203/29/2012 Inactive PRN PAIN Daliresp 500 mcg tablet RxNorm: 1809612 1 Tablet(s) PO QD 03/01/2012 09/28/2012 Inactive MS Contin 200 mg Tab RxNorm: 505370 1 Tablet(s) PO BID 02/02/201208/2012 Inactive Endocet 10 mg-325 mg Tab RxNorm: 4304664 1-2 Tablet(s) PO Q4H 02/0103/01/2012 Inactive PRN PAIN fluoxetine 40 mg capsule RxNorm: 434061 1 Capsule(s) PO QD 02/02/2008/01/2012 Inactive TAKE ONE CAPSULE BY MOUTH EV JANKI MORNING Synthroid 112 mcg Tab RxNorm: 443744 1 Tablet(s) PO QD 01/18/2012 Inactive TAKE ONE TABLET BY MOUTH EVERY DAY lactulose 10 gram/15 mL oral solution RxNorm: 129539 [address]s) PO QD 01/18/2012 No Stop Date Active TAKE 1 TABLESPOON BY MOUTH ONCE DAILY Ventolin HFA 90 mcg/actuation Aerosol Inhaler RxNorm: 8096496 2 Puff(s) INH Q4H 01/18/2012 04/11/2012 Inactive prn MS Contin 200 mg Tab RxNorm: 134210 1 Tablet(s) PO BID 01/05/201210/2012 Inactive Endocet 10 mg-325 mg Tab RxNorm: 9992016 1-2 Tablet(s) PO Q4H 01/0502/01/2012 Inactive PRN PAIN ProAir HFA 90 mcg/Actuation Aerosol Inhaler RxNorm: 5775688 2 Pu ff(s) INH Q4H 12/21/2011 No Stop Date Active prn for wheezing or shortness of breath Spiriva with HandiHaler 18 mcg & inhalation Caps RxNorm: 580 261 1 Capsule(s) INH 12/21/2011 06/30/2012 Inactive INHALE CONTENTS OF 1 CAPSULE(S) WITH HANDIHALER ONCE DAILY Reglan 10 mg Tab RxNorm: 911610 1 Tablet(s) PO QID before meals and at bedtime 12/21/2011 04/10/2012 Inactive Synthroid 112 mcg Tab RxNorm: 452422 1 Tablet(s) PO QD 12/21/2011 Inactive TAKE ONE TABLET BY MOUTH EVERY DAY Endocet 10 mg-325 mg Tab RxNorm: 1446588 1-2 Tablet(s) PO Q4H 11/2512/24/2011 Inactive PRN PAIN MS Contin 200 mg Tab RxNorm: 248054 1 Tablet(s) PO BID 11/25/201112/2011 Inactive lactulose 10 gram/15 mL Oral Soln RxNorm: 943762 Milliliter(s) PO 1 No Stop Date Active TAKE 1 TABLESPOON BY MOUTH O NCE DAILY lactulose 10 gram/15 mL Oral Soln RxNorm: 523805 Milliliter(s) PO 1 12/12/2010 11/20/2011 Inactive TAKE 1 TABLESPOON BY MOUTH O NCE DAILY Premarin 0.9 mg Tab RxNorm: 691357 1 Tablet(s) PO QD 10/12/201105/08 Inactive TAKE ONE TABLET BY MOUTH EVERY DAY fluoxetine 20 mg capsule RxNorm: 112938 1 Capsule(s) PO QD 10/12/2009/05/2012 Inactive TAKE ONE CAPSULE BY MOUTH EV JANKI DAY Synthroid 112 mcg Tab RxNorm: 777118 1 Tablet(s) PO QD 10/12/2011 Inactive TAKE ONE TABLET BY MOUTH EVERY DAY metformin ER 500 mg 24 hr Tab RxNorm: 890237 1 Tablet(s) PO QD 09/2311/10/2011 Inactive TAKE ONE TABLET BY MOUTH GLYNN RY DAY Synthroid 112 mcg Tab RxNorm: 510979 1 Tablet(s) PO QD 10/12/2011 Inactive TAKE ONE TABLET BY MOUTH EVERY DAY metformin ER 500 mg 24 hr Tab RxNorm: 239206 1 Tablet(s) PO QD 09/2310/11/2011 Inactive TAKE ONE TABLET BY MOUTH GLYNN RY DAY Prevacid 30 mg Cap RxNorm: 780968 Capsule(s) PO 10/12/2011 01/25/2012 Inactive TAKE ONE CAPSULE BY MOUTH EVERY DAY Symbicort 160 mcg-4.5 mcg/actuation HFA Aerosol Inhaler RxNo rm: 4960689 2 Puff(s) INH BID 10/12/2011 05/08/2012 Inactive INHALE 2 PUFFS O RALLY TWO TIMES A DAY gabapentin 800 mg Tab RxNorm: 445088 1 Tablet(s) PO QD 10/12/2011 Inactive TAKE ONE TABLET BY MOUTH EVERY DAY MS Contin 200 mg Tab RxNorm: 921078 1 Tablet(s) PO BID 09/23/201111/2010 Inactive Endocet 10 mg-325 mg Tab RxNorm: 4299969 1-2 Tablet(s) PO Q4H 09/2310/22/2011 Inactive PRN PAIN Endocet 10 mg-325 mg Tab RxNorm: 1003903 1-2 Tablet(s) PO Q4H 08/2109/19/2011 Inactive PRN PAIN MS Contin 200 mg Tab RxNorm: 685484 1 Tablet(s) PO BID 08/21/2011 Inactive Diflucan 100 mg Tab RxNorm: 814550 1 Tablet(s) PO QD 08/10/201108/16 Inactive cefdinir 300 mg Cap RxNorm: 854796 2 Capsule(s) PO QD 08/10/201107/24 Inactive Reglan 10 mg Tab RxNorm: 631638 1 Tablet(s) PO AC & HS 07/15/2011 Inactive Endocet 10 mg-325 mg Tab RxNorm: 8691955 1-2 Tablet(s) PO Q4H 07/1508/13/2011 Inactive PRN PAIN One Touch Ultra Test strips RxNorm: Miscellaneous BID 06/11/2011 1 01/16/2014 Inactive TEST TWO TIMES A DAY lactulose 10 gram/15 mL Oral Soln RxNorm: 399041 Milliliter(s) PO 0 06/10/2011 10/11/2011 Inactive TAKE 1 TABLESPOON BY MOUTH O NCE DAILY Chantix Continuing Month Aníbal 1 mg Tab RxNorm: 883711 Tablet(s) PO 0 06/10/2011 11/02/2011 Inactive TAKE DIRECTED - PER PACK[employer] GE INSTRUCTIONS fluoxetine 40 mg Cap RxNorm: 604420 Capsule(s) PO 06/10/2011 02/02/20 Inactive TAKE ONE CAPSULE BY MOUTH EVERY MORNING Chantix Continuing Month Aníbal 1 mg Tab RxNorm: 558030 Ta blet(s) PO TAKE DIRECTED - PER PACKAGE INSTRUCTIONS 05/13/2011 06/09/2011 Inactive Soma 350 mg Tab RxNorm: 448112 Tablet(s) PO TAKE ON E TABLET BY MOUTH THREE TIMES A DAY 05/13/2011 04/18/2012 Inactive Chantix Continuing Month Aníbal 1 mg Tab RxNorm: 577680 Ta blet(s) PO as directed per package instructions. 04/22/2011 05/12/2011 Inactive Symbicort 160 mcg-4.5 mcg/Actuation HFA Aerosol Inhaler RxNo rm: 4375659 HFA Aerosol Inhaler INH INHALE 2 PUFFS ORALLY TWO TIMES A DAY 04/13/2011 Inactive Synthroid 112 mcg Tab RxNorm: 930838 Tablet(s) PO TAKE ONE TABLET BY MOUTH EVERY DAY 04/13/2011 10/12/2011 Inactive Premarin 0.9 mg Tab RxNorm: 237859 Tablet(s) PO TAKE ON E TABLET BY MOUTH EVERY DAY 04/13/2011 10/12/2011 Inactive gabapentin 800 mg Tab RxNorm: 860593 Tablet(s) PO TAKE ONE TABLET BY MOUTH EVERY DAY 04/13/2011 10/12/2011 Inactive Prevacid 30 mg Cap RxNorm: 685437 1 Capsule(s) PO QD 04/13/201110/11 Inactive Spiriva with HandiHaler 18 mcg & inhalation Caps RxNorm: 580 261 Capsule(s) INH INHALE CONTENTS OF 1 CAPSULE(S) WITH HANDIHALER ONCE DAILY 04/13/2011 12/21/2011 Inactive metformin ER 500 mg 24 hr Tab RxNorm: 318209 Tablet(s) PO TAKE ONE TABLET BY MOUTH EVERY DAY 04/13/2011 10/12/2011 Inactive Soma 350 mg Tab RxNorm: 673959 1 Tablet(s) PO QID 03/30/2011 02/13/20 19 Inactive fluoxetine 20 mg Cap RxNorm: 953187 Capsule(s) PO TAKE ONE CAPSULE BY MOUTH EVERY DAY 03/25/2011 10/12/2011 Inactive cefdinir 300 mg Cap RxNorm: 910142 2 Capsule(s) PO QD 03/19/201105/2011 Inactive 16.2 mg-0.1037 mg-0.0194 mg Tab RxNorm: 4931585 2 Tablet(s) PO TID PRN for gas and cramping 03/16/2011 07/13/2011 Inactive Soma 350 mg Tab RxNorm: 364857 2 Tablet(s) PO TID 03/16/2011 03/29/20 11 Inactive Chantix Starting Month Aníbal 0.5 mg (11)-1 mg (3x14) Tab s in a Dose Pack RxNorm: 228622 Tablet(s) PO as directed 03/02/2011 No Stop Date Active diazepam 10 mg Tab RxNorm: 957541 1 Tablet(s) PO BID 02/10/201101/19 Inactive Zofran 4 mg tablet RxNorm: 422173 1 Tablet(s) PO Q4H prn nausea 02/16/2011 Inactive Diflucan 100 mg Tab RxNorm: 052101 1 Tablet(s) PO QD 01/18/201101/24 Inactive Premarin 0.625 mg/g Vaginal Cream RxNorm: 777237 VAG In sert 1gm vaginally at bedtime 3 times weekly 01/18/2011 02/12/2019 Inactive loratadine 10 mg Tab RxNorm: 488742 1 Tablet(s) PO QD 12/17/201003/2012 Inactive Spiriva with HandiHaler 18 mcg & inhalation Caps RxNorm: 580 261 1 Capsule(s) INH QD 12/17/2010 04/12/2011 Inactive Diflucan 100 mg Tab RxNorm: 371141 1 Tablet(s) PO QD 12/17/201012/23 Inactive diazepam 10 mg Tab RxNorm: 104324 1 Tablet(s) PO BID and PRN 201002/12/2019 Inactive One Touch Ultra Test Strips RxNorm: InVt BID Zainab t blood sugar at least twice daily. 11/11/2010 06/11/2011 Inactive fluoxetine 40 mg Cap RxNorm: 375229 1 Capsule(s) PO QAM 11/11/2010 Inactive diazepam 10 mg Tab RxNorm: 754391 1 Tablet(s) PO BID and PRN 200911/12/2010 Inactive Bactrim DS 800 mg-160 mg Tab RxNorm: 619686 1 Tablet(s) PO BID 09/2210/15/2010 Inactive fluoxetine 20 mg Cap RxNorm: 485402 1 Capsule(s) PO QD 10/02/201008/2011 Inactive Bactrim DS 800 mg-160 mg Tab RxNorm: 222110 1 Tablet(s) PO BID 01/201010/03/2010 Inactive Zofran 4 mg Tab RxNorm: 205976 1 Tablet(s) PO Q4H prn nausea 200910/16/2010 Inactive 16.2 mg-0.1037 mg-0.0194 mg Tab RxNorm: 3283980 2 Tablet(s) PO TID PRN for gas and cramping 09/17/2010 10/21/2010 Inactive Gabapentin 800 mg Tab RxNorm: 628960 1 Tablet(s) PO QD 09/16/2010 Inactive ProAir HFA 90 mcg/Actuation Aerosol Inhaler RxNorm: 5966170 2 Puff(s) INH Q4H prn shortness of breath 09/15/2010 12/13/2010 Inactive gabapentin 800 mg Tab RxNorm: 393126 1 Tablet(s) PO QD 09/15/2010 Inactive Prevacid 30 mg Cap RxNorm: 515830 1 Capsule(s) PO QD 09/15/201004/12 Inactive loratadine 10 mg Tab RxNorm: 656136 1 Tablet(s) PO QD 09/15/201011/23 Inactive Premarin 0.9 mg Tab RxNorm: 074201 1 Tablet(s) PO QD 09/15/201004/12 Inactive Synthroid 112 mcg Tab RxNorm: 330260 1 Tablet(s) PO QD 09/15/2010 Inactive metformin ER 500 mg 24 hr Tab RxNorm: 927439 1 Tablet(s) PO QD 08/2304/12/2011 Inactive Symbicort 160 mcg-4.5 mcg/Actuation Inhalation HFA Aer osol Inhaler RxNorm: 8140118 2 Puff(s) INH BID 09/15/2010 04/12/2011 Inactive diazepam 10 mg Tab RxNorm: 716157 1 Tablet(s) PO BID and PRN 200910/13/2010 Inactive Phentermine 37.5 mg Cap RxNorm: 677841 1 Capsule(s) PO QD 09/02/2010 11/02/2011 Inactive ProAir HFA 90 mcg/Actuation Aerosol Inhaler RxNorm: 8084378 2 Puff(s) INH Q4H prn shortness of breath 08/07/2010 No Stop Date Active Premarin 0.9 mg Tab RxNorm: 484534 1 Tablet(s) PO QD 08/07/201009/14 Inactive Loratadine 10 mg Tab RxNorm: 404887 1 Tablet(s) PO QD 08/07/201008/23 Inactive Lactulose 10 gram/15 mL Oral Soln RxNorm: 969604 1 Unit Dose PO QD 08/07/2010 02/12/2019 Inactive Zofran 4 mg Tab RxNorm: 829577 1 Tablet(s) PO Q4H prn nausea 2009 No Stop Date Active Gabapentin 800 mg Tab RxNorm: 898649 1 Tablet(s) PO QD 08/07/2010 Inactive Synthroid 112 mcg Tab RxNorm: 625643 1 Tablet(s) PO QD 08/07/2010 Inactive Metformin ER 500 mg 24 hr Tab RxNorm: 873951 1 Tablet(s) PO QD 07/2309/14/2010 Inactive Vitamin D 1,000 unit Tab RxNorm: 161695 1 Tablet(s) PO TID 08/07/2002/12/2019 Inactive Symbicort 160 mcg-4.5 mcg/Actuation Inhalation HFA Aer osol Inhaler RxNorm: 0180020 2 Puff(s) INH BID 08/07/2010 09/14/2010 Inactive Prevacid 30 mg Cap RxNorm: 420295 1 Capsule(s) PO QD 08/07/201009/14 Inactive Metformin ER 500 mg 24 hr Tab RxNorm: 652269 1 Tablet(s) PO QD 06/2308/06/2010 Inactive Vitamin D 1,000 unit Tab RxNorm: 828687 1 Tablet(s) PO TID 07/14/2008/06/2010 Inactive Synthroid 112 mcg Tab RxNorm: 195814 1 Tablet(s) PO QD 07/14/2010 Inactive Lactulose 10 gram/15 mL Oral Soln RxNorm: 609036 1 Unit Dose PO QD 07/14/2010 08/06/2010 Inactive Levaquin 500 mg Tab RxNorm: 019614 1 Tablet(s) PO QD 07/14/201007/27 Inactive Premarin 0.9 mg Tab RxNorm: 929356 1 Tablet(s) PO QD 07/14/201008/06 Inactive ProAir HFA 90 mcg/Actuation Aerosol Inhaler RxNorm: 2696341 2 Puff(s) INH Q4H prn shortness of breath 07/14/2010 No Stop Date Active Prevacid 30 mg Cap RxNorm: 822877 1 Capsule(s) PO QD 07/14/201008/06 Inactive Zofran 4 mg Tab RxNorm: 462478 1 Tablet(s) PO Q4H prn nausea 2009 No Stop Date Active Symbicort 160 mcg-4.5 mcg/Actuation Inhalation HFA Aer osol Inhaler RxNorm: 4494462 2 Puff(s) INH BID 07/14/2010 08/06/2010 Inactive Loratadine 10 mg Tab RxNorm: 631201 1 Tablet(s) PO QD 07/14/201007/23 Inactive Gabapentin 800 mg Tab RxNorm: 257482 1 Tablet(s) PO QD 07/14/2010 Inactive Metformin ER 500 mg 24 hr Tab RxNorm: 696690 1 Tablet(s) PO 010 07/13/2010 Inactive Diazepam 10 mg Tab RxNorm: 083397 1 Tablet(s) PO BID and PRN 200909/06/2010 Inactive Premarin 0.9 mg Tab RxNorm: 278889 1 Tablet(s) PO QD 06/09/201007/13 Inactive Zofran 4 mg Tab RxNorm: 152682 1 Tablet(s) PO Q4H prn nausea 2009 No Stop Date Active ProAir HFA 90 mcg/Actuation Aerosol Inhaler RxNorm: 5515351 2 Puff(s) INH Q4H prn shortness of breath 06/09/2010 No Stop Date Active Gabapentin 800 mg Tab RxNorm: 175349 1 Tablet(s) PO QD 06/09/2010 Inactive Loratadine 10 mg Tab RxNorm: 310968 1 Tablet(s) PO QD 06/09/201006/23 Inactive Lactulose 10 gram/15 mL Oral Soln RxNorm: 389409 1 Unit Dose PO QD 06/09/2010 07/13/2010 Inactive Prevacid 30 mg Cap RxNorm: 616740 1 Capsule(s) PO QD 06/09/201007/13 Inactive Synthroid 112 mcg Tab RxNorm: 429779 1 Tablet(s) PO QD 06/09/2010 Inactive Symbicort 160 mcg-4.5 mcg/Actuation Inhalation HFA Aer osol Inhaler RxNorm: 5016049 2 Puff(s) INH BID 06/09/2010 07/13/2010 Inactive Omnicef 300 mg Cap RxNorm: 397532 2 Capsule(s) PO QD 05/07/201005/20 Inactive Metformin 500 mg Tab RxNorm: 400097 1 Tablet(s) PO QD 05/06/201005/22 Inactive ProAir HFA 90 mcg/Actuation Aerosol Inhaler RxNorm: 3829161 2 Puff(s) INH Q4H prn shortness of breath 05/06/2010 No Stop Date Active lactulose 10 gram/15 mL Oral Soln RxNorm: 370026 1 Unit Dose PO QD 05/06/2010 06/10/2011 Inactive Loratadine 10 mg Tab RxNorm: 717610 1 Tablet(s) PO QD 05/06/201005/22 Inactive Synthroid 112 mcg Tab RxNorm: 061720 1 Tablet(s) PO QD 05/06/2010 Inactive Symbicort 160 mcg-4.5 mcg/Actuation Inhalation HFA Aer osol Inhaler RxNorm: 8963945 2 Puff(s) INH BID 05/06/2010 06/08/2010 Inactive Gabapentin 800 mg Tab RxNorm: 546813 1 Tablet(s) PO QD 05/06/2010 Inactive 16.2 mg-0.1037 mg-0.0194 mg Tab RxNorm: 1960770 2 Tablet(s) PO TID PRN for gas and cramping 05/06/2010 05/12/2010 Inactive Zofran 4 mg Tab RxNorm: 741037 1 Tablet(s) PO Q4H prn nausea 200904/13/2010 Inactive MS Contin 60 mg Tab RxNorm: 231913 3 Tablet(s) PO BID 04/09/201004/22 Inactive Soma 350 mg Tab RxNorm: 387970 2 Tablet(s) PO TID 04/09/2010 05/08/20 Inactive Symbicort 160 mcg-4.5 mcg/Actuation Inhalation HFA Aer osol Inhaler RxNorm: 7946354 2 Puff(s) INH BID 04/08/2010 05/05/2010 Inactive Doxycycline 100 mg Cap RxNorm: 4445030 1 Capsule(s) PO BID 04/08/2004/17/2010 Inactive Triamterene-Hydrochlorothiazide 37.5 mg-25 mg Cap RxNorm: 19 8316 1 Capsule(s) PO QAM 04/08/2010 09/04/2010 Inactive fluoxetine 40 mg Cap RxNorm: 183630 1 Capsule(s) PO QAM 04/08/2010 Inactive Morphine SR 120 mg multiphase 24 hr Cap RxNorm: 007277 1 Capsul e(s) PO 03/11/2010 04/07/2010 Inactive Endocet 10 mg-325 mg Tab RxNorm: 8255947 1-2 Tablet(s) PO Q4H [place] N PAIN 03/11/2010 04/09/2010 Inactive Savella 100 mg Tab RxNorm: 336158 1 Tablet(s) PO BID 03/10/201004/09 Inactive Soma 350 mg Tab RxNorm: 180503 1 Tablet(s) PO TID prn spasm 010 04/09/2010 Inactive Savella 100 mg Tab RxNorm: 149102 1 Tablet(s) PO BID 02/03/201004/09 Inactive Aspirin 81 mg Tab RxNorm: 962907 1 Tablet(s) PO QD No Start Date Active Zyrtec 10 mg Tab RxNorm: 0532826 1 Tablet(s) PO QD No Start Date Active One Touch Ultra Test Strips RxNorm: Misc test at least t wice daily. No Start Date Active coenzyme Q10 200 mg capsule RxNorm: 388610 1 Capsule(s) PO QD No Star t Date Active One Touch Ultra Test Strips RxNorm: InVt BID Zainab t blood sugar at least twice daily. No Start Date 11/10/2010 Inactive Gabapentin 800 mg Tab RxNorm: 583865 1 Tablet(s) PO QD No Start Date 05/05/2010 Inactive Abilify 5 mg tablet RxNorm: 478427 1 Tablet(s) PO QD No Start Date Inactive Chantix 1 mg Tab RxNorm: 339980 1 Tablet(s) PO BID No Start Date 10/22 Inactive Ozempic 0.25 mg or 0.5 mg (2 mg/1.5 mL) subcutaneous p en injector RxNorm: 5835792 .25 Milligram(s) SQ QW No Start Date 07/04/2019 Inactive lancets 28 gauge RxNorm: Miscellaneous As needed for blo od glucose sticks No Start Date 08/23/2013 Inactive potassium chloride ER 20 mEq tablet,extended release RxNorm: 223340 2 Tablet(s) PO QD No Start Date 09/26/2018 Inactive Ventolin HFA 90 mcg/actuation Aerosol Inhaler RxNorm: 159363 1 2 Puff(s) INH Q4H prn No Start Date 01/17/2012 Inactive potassium chloride ER 20 mEq tablet,extended release RxNorm: 483782 2 Tablet(s) PO QD No Start Date 10/19/2018 Inactive Januvia 100 mg tablet RxNorm: 646086 1 Tablet(s) PO QD No Start Date 09/10/2015 Inactive Medrol (Aníbal) 4 mg Tabs in a Dose Pack RxNorm: 629600 Tablet(s) PO N o Start Date 08/09/2011 Inactive as directed Zithromax Z-Aníbal 250 mg Tab RxNorm: 186584 Tablet(s) PO No Start Date 01/25/2012 Inactive as directed vitamin B6-vitamin E-magnesium tablet RxNorm: 1 Tablet(s ) PO QHS with INH No Start Date 03/30/2018 Inactive prednisone 20 mg Tab RxNorm: 364658 1 Tablet(s) PO TID for 1wk then 1 po BID for 1wk No Start Date 01/25/2012 Inactive furosemide 40 mg tablet RxNorm: 912807 1 Tablet(s) PO QAM No Start Date 10/09/2018 Inactive Vitamin D3 1000 units Capsule RxNorm: 1 Capsule(s) PO TID No S tart Date 03/19/2015 Inactive Zofran 4 mg Tab RxNorm: 265281 1 Tablet(s) PO Q4H prn nausea No Sta rt Date 04/13/2010 Inactive Premarin 0.625 mg/g Vaginal Cream RxNorm: 003484 1 Gram (s) VAG QHS 3 times a week No Start Date 09/22/2017 Inactive oxycodone 10 mg tablet RxNorm: 1104514 1-2 Tablet(s) PO QID as n eeded for pain No Start Date 11/04/2015 Inactive Nicoderm CQ 21 mg/24 hr daily Patch RxNorm: 192920 1 Applicatio n TD QD No Start Date 08/05/2015 Inactive Topamax 50 mg tablet RxNorm: 298359 1/2 Tablet(s) PO QH S for 1wk then 1 po q HS for 1wk then 2 po q HS No Start Date 06/27/2012 Inactive Chantix Starting Month Aníbal 0.5 mg (11)-1 mg (3x14) Tab s in a Dose Pack RxNorm: 575916 Tablet(s) PO as directed No Start Date 03/01/2011 Inactive Trulicity 0.75 mg/0.5 mL subcutaneous pen injector RxNorm: 1 113862 Milliliter(s) SQ No Start Date 07/04/2019 Inactive Medrol (Aníbal) 4 mg Tabs in a Dose Pack RxNorm: 495842 Tablet(s) PO N o Start Date 01/25/2012 Inactive as directed Duragesic 100 mcg/hr Transderm Patch RxNorm: 344257 2 A pplication TD Q48H for pain No Start Date 09/05/2013 Inactive Premarin 0.9 mg Tab RxNorm: 436620 1 Tablet(s) PO QD No Start Date Inactive Zithromax Z-Aníbal 250 mg Tab RxNorm: 570256 Tablet(s) PO as direc chinmay No Start Date 01/25/2012 Inactive ondansetron 8 mg disintegrating tablet RxNorm: 681302 1 Tablet(s) PO Q6H as needed No Start Date 10/10/2018 Inactive oxycodone 15 mg tablet RxNorm: 7980603 1 Tablet(s) PO QID as nee ded for pain No Start Date 03/05/2019 Inactive ProAir HFA 90 mcg/Actuation Aerosol Inhaler RxNorm: 435506 2 Puff(s) INH Q4H prn for wheezing or shortness of breath No Start Date 12/21/2011 Inactive pravastatin 40 mg tablet RxNorm: 284482 1/2 Tablet(s) PO QOD No Sta rt Date 04/09/2015 Inactive ipratropium-albuterol 0.5 mg-3 mg(2.5 mg base)/3 mL ne bulization soln RxNorm: 2254164 1 Unit Dose INH Q4H as needed No Start Date 09/09/2016 Inactive furosemide 40 mg tablet RxNorm: 240222 1 Tablet(s) PO QAM as ne eded No Start Date 09/24/2019 Inactive Vitamin D2 oral RxNorm: 4018 oral No Start Date 03/18/2015 Inacti ve pravastatin 40 mg tablet RxNorm: 966035 1/2 Tablet(s) PO QD No Star t Date 04/09/2015 Inactive ondansetron HCl 4 mg tablet RxNorm: 655022 1 Tablet(s) PO Q4H as needed for nausea and vomiting No Start Date 04/07/2016 Inactive furosemide 40 mg tablet RxNorm: 187602 2 Tablet(s) PO QAM No Start Date 09/26/2018 Inactive gabapentin 800 mg tablet RxNorm: 525674 1/2 Tablet(s) PO BID No Sta rt Date 06/21/2017 Inactive gabapentin 800 mg tablet RxNorm: 281746 1/2 Tablet(s) PO BID No Sta rt Date 07/05/2017 Inactive ProAir HFA 90 mcg/Actuation Aerosol Inhaler RxNorm: 7021747 2 Puff(s) INH Q4H prn shortness of breath No Start Date 05/05/2010 Inactive scopolamine 1 mg over 3 days transdermal patch RxNorm: 82570 2 1 Application TD behind ear. Take off after three days No Start Date 10/10/2018 Inactive Metformin 500 mg Tab RxNorm: 298448 1 Tablet(s) PO QD No Start Date 0 05/05/2010 Inactive MS Contin 200 mg Tab RxNorm: 954219 1 Tablet(s) PO BID No Start Date 08/20/2011 Inactive Belladonna-Phenobarbital 48 mg tablet,extended release RxNor m: 2 Tablet(s) PO TID No Start Date 06/04/2016 Inactive Synthroid 112 mcg Tab RxNorm: 807292 1 Tablet(s) PO QD No Start Date 05/05/2010 Inactive Zegerid 40 mg-1.1 gram Cap RxNorm: 340638 1 Capsule(s) PO QD No Sta rt Date 01/25/2012 Inactive Premarin 0.625 mg/g Vaginal Cream RxNorm: 324718 VAG In sert 1gm vaginally at bedtime 3 times weekly No Start Date 01/17/2011 Inactive potassium chloride ER 20 mEq tablet,extended release RxNorm: 973927 1 Tablet(s) PO QD No Start Date 04/24/2019 Inactive methocarbamol 750 mg tablet RxNorm: 815733 2 Tablet(s) PO TID as needed for muscle spasm No Start Date 07/08/2014 Inactive Biaxin XL Aníbal 500 mg 24 hr Tab RxNorm: 824214 Tablet(s) PO as d irected No Start Date 04/24/2013 Inactive Vitamin D3 1,000 unit tablet RxNorm: 104466 3 Tablet(s) PO QD No St art Date 06/01/2017 Inactive Morphine SR 120 mg multiphase 24 hr Cap RxNorm: 907673 1 Capsul e(s) PO BID No Start Date 04/09/2010 Inactive Silvadene 1 % topical cream RxNorm: 811563 1 Application TOP BI D to burn area No Start Date 01/31/2017 Inactive Prednisone 20 mg Tab RxNorm: 640171 1 Tablet(s) PO TID for 3days then BID for 4days No Start Date 01/25/2012 Inactive gabapentin 600 mg tablet RxNorm: 759576 1 Tablet(s) PO BID No Start Date 01/21/2015 Inactive topiramate 50 mg tablet RxNorm: 160596 1 Tablet(s) PO QHS No Start Date 03/30/2018 Inactive Januvia 100 mg tablet RxNorm: 580805 1/2 Tablet(s) PO QD No Start D ate 12/25/2015 Inactive Diazepam 10 mg Tab RxNorm: 956952 1 Tablet(s) PO BID and PRN No Sta rt Date 06/08/2010 Inactive Medication Administered No Medication Administered data Immunizations Vaccine Codes Date Status Influenza CVX: 141 09/28/2012 Pneumovax Unknown 09/28/2012 Influenza (Adult) CVX: 141 09/02/2010 Results No Results data Procedures Procedure Codes Date THER/PROPH/DIAG INJ SC/IM CPT-4: 31503 07/10/2019 METHYLPREDNISOLONE INJECTION CPT-4: J2930 07/10/2019 URINALYSIS NONAUTO W/O SCOPE CPT-4: 98917 09/06/2018 URINE CULTURE/ COLONY COUNT CPT-4: 20854 09/06/2018 DRAIN/INJECT JOINT/BURSA CPT-4: 34528 04/29/2017 TRIAMCINOLONE ACET INJ NOS CPT-4: J3301 04/29/2017 DEXAMETHASONE SODIUM PHOS CPT-4: J1100 04/29/2017 INFLUENZA ASSAY W/OPTIC CPT-4: 59020 12/01/2016 RESPIRATORY CULTURE & STAIN CPT-4: 81497 07/09/2016 TB INTRADERMAL TEST CPT-4: 07595 04/21/2016 DRAIN/INJECT JOINT/BURSA CPT-4: 73771 11/07/2013 METHYLPREDNISOLONE 40 MG INJ CPT-4: J1030 11/07/2013 TRIAMCINOLONE ACET INJ NOS CPT-4: J3301 11/07/2013 DRAIN/INJECT JOINT/BURSA CPT-4: 87438 08/08/2013 METHYLPREDNISOLONE 40 MG INJ CPT-4: J1030 08/08/2013 TRIAMCINOLONE ACET INJ NOS CPT-4: J3301 08/08/2013 FLU VACCINE 3 YRS & > IM UP 64 CPT-4: 32415 2 PNEUMOCOCCAL VACC 23 ADITYA IM CPT-4: 49747 09/28/2012 IMMUNIZATION ADMIN CPT-4: 06862 09/28/2012 IMMUNIZATION ADMIN EACH ADD CPT-4: 30559 09/28/2012 FLU VACCINE 3 YRS & > IM UP 64 CPT-4: 14570 0 IMMUNIZATION ADMIN CPT-4: 29475 09/02/2010 METHYLPREDNISOLONE INJECTION CPT-4: J2930 05/07/2010 THER/PROPH/DIAG INJ SC/IM CPT-4: 34541 05/07/2010 Vital Signs Date Vital 11/29/2019 Blood [...] 1: 122/78 Code: 8480-6 BMI: 29.5 Code: 41621-0 Heart Rate 1: 76 bpm Height: 5'4" Respiratory Rate: 20 bpm SpO2: 96% Tempera ture: 37.0 (C) / 98.6 (F) Weight: 172 lbs 01/25/2019 Blood Pressure 1: 132/80 Code: 8480-6 BMI: 29.7 Code: 84793-2 Heart Rate 1: 84 bpm Height: 5'4" Respiratory Rate: 22 bpm SpO2: 98% Tempera ture: 36.9 (C) / 98.4 (F) Weight: 173 lbs 01/03/2019 Blood Pressure 1: 116/70 Code: 8480-6 BMI: 29.5 Code: 25922-3 Heart Rate 1: 92 bpm Height: 5'4" Respiratory Rate: 24 bpm SpO2: 98% Tempera ture: 37.2 (C) / 98.9 (F) Weight: 172 lbs 11/21/2018 Blood Pressure 1: 146/82 Code: 8480-6 BMI: 28.2 Code: 91382-2 Heart Rate 1: 88 bpm Height: 5'4" Respiratory Rate: 22 bpm SpO2: 97% Tempera ture: 36.9 (C) / 98.4 (F) Weight: 164 lbs 10/27/2018 Blood Pressure 1: 122/70 Code: 8480-6 BMI: 27.6 Code: 45606-3 Heart Rate 1: 88 bpm Height: 5'4" Respiratory Rate: 20 bpm SpO2: 96% Tempera ture: 36.8 (C) / 98.3 (F) Weight: 161 lbs 10/18/2018 Blood Pressure 1: 126/70 Code: 8480-6 BMI: 28.3 Code: 25036-1 Heart Rate 1: 76 bpm Height: 5'4" Respiratory Rate: 20 bpm SpO2: 95% Tempera ture: 37.0 (C) / 98.6 (F) Weight: 165 lbs 09/27/2018 Blood Pressure 1: 124/78 Code: 8480-6 BMI: 27.1 Code: 52178-2 Heart Rate 1: 88 bpm Height: 5'4" Respiratory Rate: 20 bpm SpO2: 98% Tempera ture: 36.4 (C) / 97.6 (F) Weight: 158 lbs 09/14/2018 Blood Pressure 1: 140/72 Code: 8480-6 BMI: 26.1 Code: 93125-4 Heart Rate 1: 100 bpm Height: 5'4" Respiratory Rate: 20 bpm SpO2: 97% Tempera ture: 36.9 (C) / 98.4 (F) Weight: 152 lbs 09/06/2018 Blood Pressure 1: 156/82 Code: 8480-6 BMI: 26.3 Code: 11162-2 Heart Rate 1: 100 bpm Height: 5'4" Respiratory Rate: 28 bpm SpO2: 95% Tempera ture: 37.2 (C) / 98.9 (F) Weight: 153 lbs 08/16/2018 Blood Pressure 1: 130/78 Code: 8480-6 Heart Rate 1: 87 bpm Respiratory Rate: 24 bpm SpO2: 94% Temperature: 36.9 (C) / 98.4 (F) We ight: 147 lbs 8 oz 07/07/2018 Blood Pressure 1: 116/78 Code: 8480-6 BMI: 22.7 Code: 24492-0 Heart Rate 1: 88 bpm Height: 5'4" Respiratory Rate: 22 bpm SpO2: 98% Tempera ture: 36.5 (C) / 97.7 (F) Weight: 132 lbs 05/31/2018 Blood Pressure 1: 128/78 Code: 8480-6 BMI: 22.3 Code: 03723-0 Heart Rate 1: 92 bpm Height: 5'4" Respiratory Rate: 26 bpm SpO2: 94% Tempera ture: 36.7 (C) / 98.1 (F) Weight: 130 lbs 03/31/2018 Blood Pressure 1: 136/78 Code: 8480-6 BMI: 21.5 Code: 47598-3 Heart Rate 1: 76 bpm Height: 5'4" Respiratory Rate: 24 bpm SpO2: 95% Tempera ture: 36.8 (C) / 98.3 (F) Weight: 125 lbs 01/26/2018 Blood Pressure 1: 142/64 Code: 8480-6 BMI: 20.6 Code: 32680-0 Heart Rate 1: 90 bpm Height: 5'4" Respiratory Rate: 24 bpm SpO2: 92% Tempera ture: 36.3 (C) / 97.3 (F) Weight: 120 lbs 10/26/2017 Blood Pressure 1: 124/70 Code: 8480-6 BMI: 20.3 Code: 06121-3 Heart Rate 1: 76 bpm Height: 5'4" Respiratory Rate: 22 bpm SpO2: 94% Tempera ture: 36.7 (C) / 98.1 (F) Weight: 118 lbs 09/23/2017 Blood Pressure 1: 106/70 Code: 8480-6 BMI: 19.2 Code: 01603-8 Heart Rate 1: 76 bpm Height: 5'4" Respiratory Rate: 20 bpm SpO2: 94% Tempera ture: 36.8 (C) / 98.3 (F) Weight: 112 lbs 08/12/2017 Blood Pressure 1: 116/68 Code: 8480-6 BMI: 20.1 Code: 82978-1 Heart Rate 1: 80 bpm Height: 5'4" Respiratory Rate: 22 bpm SpO2: 95% Tempera ture: 36.8 (C) / 98.2 (F) Weight: 117 lbs 07/06/2017 Blood Pressure 1: 136/78 Code: 8480-6 BMI: 20.6 Code: 91848-7 Heart Rate 1: 76 bpm Height: 5'4" Respiratory Rate: 24 bpm SpO2: 96% Tempera ture: 36.8 (C) / 98.2 (F) Weight: 120 lbs 06/02/2017 Blood Pressure 1: 112/70 Code: 8480-6 Heart Rate 1: 92 bpm Height: 5'4" Respiratory Rate: 24 bpm SpO2: 95% Temperature: 37.0 (C) / 98.6 (F) Weight: 04/29/2017 Blood Pressure 1: 94/52 Code: 8480-6 BMI: 19.6 C ode: 81642-8 Heart Rate 1: 84 bpm Height: 5'4" [...] 92/58 Code: 8480-6 BMI: 19.2 C ode: 87387-6 Heart Rate 1: 84 bpm Height: 5'4" Respiratory Rate: 26 bpm SpO2: 95% Tempera ture: 36.7 (C) / 98.0 (F) Weight: 112 lbs 12/01/2016 Blood Pressure 1: 114/70 Code: 8480-6 BMI: 19.2 Code: 16128-6 Heart Rate 1: 96 bpm Height: 5'4" Respiratory Rate: 28 bpm SpO2: 93% Tempera ture: 38.3 (C) / 101.0 (F) Weight: 112 lbs 10/27/2016 Blood Pressure 1: 126/66 Code: 8480-6 BMI: 19.6 Code: 48211-0 Heart Rate 1: 92 bpm Height: 5'4" Respiratory Rate: 28 bpm SpO2: 90% Tempera ture: 36.8 (C) / 98.3 (F) Weight: 114 lbs 09/09/2016 Blood Pressure 1: 126/74 Code: 8480-6 Heart Rate 1: 104 bpm Height: 5'4" Respiratory Rate: 32 bpm SpO2: 88% Temperature: 37 .2 (C) / 99.0 (F) 08/26/2016 Blood Pressure 1: 134/82 Code: 8480-6 BMI: 22.0 Code: 72771-2 Heart Rate 1: 84 bpm Height: 5'4" Respiratory Rate: 24 bpm SpO2: 94% Tempera ture: 36.8 (C) / 98.3 (F) Weight: 128 lbs 05/21/2016 Blood Pressure 1: 142/80 Code: 8480-6 BMI: 21.6 Code: 01647-2 Heart Rate 1: 104 bpm Height: 5'4" Respiratory Rate: 22 bpm SpO2: 93% Tempera ture: 36.0 (C) / 96.8 (F) Weight: 126 lbs 03/25/2016 Blood Pressure 1: 126/62 Code: 8480-6 Heart Rate 1: 88 bpm Respiratory Rate: 20 bpm SpO2: 92% Temperature: 36.8 (C) / 98.3 (F) We ight: 130 lbs 01/23/2016 Blood Pressure 1: 146/82 Code: 8480-6 BMI: 24.1 Code: 35071-5 Heart Rate 1: 92 bpm Height: 5'3" Respiratory Rate: 22 bpm Temperature: 37 .1 (C) / 98.8 (F) Weight: 136 lbs 12/26/2015 Blood Pressure 1: 142/78 Code: 8480-6 BMI: 24.6 Code: 83287-1 Heart Rate 1: 78 bpm Height: 5'3" Respiratory Rate: 20 bpm Temperature: 36 .7 (C) / 98.1 (F) Weight: 139 lbs 12/03/2015 Blood Pressure 1: 126/60 Code: 8480-6 BMI: 24.6 Code: 53177-8 Heart Rate 1: 100 bpm Height: 5'3" Respiratory Rate: 28 bpm Temperature: 37 .6 (C) / 99.6 (F) Weight: 139 lbs 09/10/2015 Blood Pressure 1: 124/64 Code: 8480-6 BMI: 23.7 Code: 61747-1 Heart Rate 1: 88 bpm Height: 5'3" Respiratory Rate: 24 bpm SpO2: 95% Tempera ture: 36.4 (C) / 97.6 (F) Weight: 134 lbs 08/06/2015 Blood Pressure 1: 114/76 Code: 8480-6 BMI: 23.2 Code: 87466-2 Heart Rate 1: 88 bpm Height: 5'3" Respiratory Rate: 22 bpm Temperature: 36 .6 (C) / 97.9 (F) Weight: 131 lbs 07/18/2015 Blood Pressure 1: 144/78 Code: 8480-6 BMI: 23.7 Code: 05744-1 Heart Rate 1: 84 bpm Height: 5'3" Respiratory Rate: 20 bpm Temperature: 37 .2 (C) / 99.0 (F) Weight: 134 lbs 04/10/2015 Blood Pressure 1: 110/64 Code: 8480-6 Heart Rate 1: 80 bpm Height: Respiratory Rate: 20 bpm Temperature: 37.1 (C) / 98.8 (F) Weight: 03/05/2015 Blood Pressure 1: 136/80 Code: 8480-6 BMI: 23.9 Code: 67655-9 Heart Rate 1: 76 bpm Height: 5'3" Respiratory Rate: 24 bpm Temperature: 37 .0 (C) / 98.6 (F) Weight: 135 lbs 01/30/2015 Blood Pressure 1: 142/80 Code: 8480-6 BMI: 23.0 Code: 18859-8 Heart Rate 1: 96 bpm Height: 5'3" Respiratory Rate: 22 bpm Temperature: 36 .2 (C) / 97.2 (F) Weight: 130 lbs 01/02/2015 Blood Pressure 1: 124/70 Code: 8480-6 BMI: 23.4 Code: 45894-2 Heart Rate 1: 84 bpm Height: 5'3" Respiratory Rate: 24 bpm SpO2: 95% Tempera ture: 36.9 (C) / 98.5 (F) Weight: 132 lbs 10/03/2014 Blood Pressure 1: 106/68 Code: 8480-6 BMI: 22.5 Code: 97575-8 Heart Rate 1: 88 bpm Height: 5'3" Respiratory Rate: 24 bpm Temperature: 37 .0 (C) / 98.6 (F) Weight: 127 lbs 08/27/2014 Blood Pressure 1: 124/68 Code: 8480-6 BMI: 21.1 Code: 83708-9 Heart Rate 1: 88 bpm Height: 5'3" Respiratory Rate: 28 bpm Temperature: 36 .9 (C) / 98.5 (F) Weight: 119 lbs 07/03/2014 Blood Pressure 1: 114/ Code: 8480-6 Heart Rate 1: 84 bpm Respiratory Rate: 28 bpm Temperature: 36.8 (C) / 98.3 (F) Weight: 121 lbs 04/11/2014 Blood Pressure 1: 112/ Code: 8480-6 Heart Rate 1: 92 bpm [...] 1: 120/70 Code: 8480-6 BMI: 19.2 Code: 19611-9 Heart Rate 1: 70 bpm Height: 5'4" Respiratory Rate: 20 bpm Temperature: 36 .9 (C) / 98.4 (F) Weight: 112 lbs 06/28/2013 Blood Pressure 1: 102/68 Code: 8480-6 BMI: 19.6 Code: 49597-1 Heart Rate 1: 76 bpm Height: 5'4" Respiratory Rate: 20 bpm Temperature: 36 .8 (C) / 98.2 (F) Weight: 114 lbs 05/31/2013 Blood Pressure 1: 106/70 Code: 8480-6 BMI: 18.9 Code: 32046-1 Heart Rate 1: 100 bpm Height: 5'4" Respiratory Rate: 20 bpm Temperature: 36 .4 (C) / 97.6 (F) Weight: 110 lbs 05/03/2013 Blood Pressure 1: 126/70 Code: 8480-6 BMI: 19.1 Code: 73540-8 Heart Rate 1: 88 bpm Height: 5'4" Respiratory Rate: 20 bpm Temperature: 37 .1 (C) / 98.8 (F) Weight: 111 lbs 04/25/2013 Blood Pressure 1: 114/68 Code: 8480-6 BMI: 19.4 Code: 27347-9 Heart Rate 1: 92 bpm Height: 5'4" Respiratory Rate: 24 bpm SpO2: 96% Tempera ture: 37.7 (C) / 99.8 (F) Weight: 113 lbs 03/08/2013 Blood Pressure 1: 94/68 Code: 8480-6 BMI: 21.3 C ode: 78409-2 Heart Rate 1: 88 bpm Height: 5'4" Respiratory Rate: 24 bpm Temperature: 37 .0 (C) / 98.6 (F) Weight: 124 lbs 02/07/2013 Blood Pressure 1: 106/64 Code: 8480-6 BMI: 21.8 Code: 82891-7 Heart Rate 1: 84 bpm Height: 5'4" Respiratory Rate: 22 bpm Temperature: 36 .8 (C) / 98.2 (F) Weight: 127 lbs 01/10/2013 Blood Pressure 1: 122/68 Code: 8480-6 BMI: 21.6 Code: 80635-3 Heart Rate 1: 94 bpm Height: 5'4" SpO2: 94% Temperature: 36.7 (C) / 98.1 (F) Weight: 126 lbs 09/28/2012 Blood Pressure 1: 124/78 Code: 8480-6 BMI: 24.9 Code: 48680-8 Heart Rate 1: 92 bpm Height: 5'4" Respiratory Rate: 20 bpm Temperature: 36 .7 (C) / 98.1 (F) Weight: 145 lbs 06/28/2012 Blood Pressure 1: 134/80 Code: 8480-6 BMI: 24.9 Code: 80530-8 Heart Rate 1: 76 bpm Height: 5'4" Respiratory Rate: 20 bpm Temperature: 36 .8 (C) / 98.2 (F) Weight: 145 lbs 05/03/2012 Blood Pressure 1: 108/62 Code: 8480-6 BMI: 25.6 Code: 62477-3 Heart Rate 1: 88 bpm Height: 5'4" Temperature: 36.2 (C) / 97.2 (F) Weight: 149 lbs 03/01/2012 Blood Pressure 1: 124/66 Code: 8480-6 BMI: 25.1 Code: 37564-2 Heart Rate 1: 76 bpm Height: 5'4" Respiratory Rate: 20 bpm Temperature: 36 .6 (C) / 97.9 (F) Weight: 146 lbs 01/26/2012 Blood Pressure 1: 118/82 Code: 8480-6 BMI: 25.1 Code: 83889-4 Heart Rate 1: 74 bpm Height: 5'4" Temperature: 36.8 (C) / 98.2 (F) Weight: 146 lbs 11/03/2011 Blood Pressure 1: 126/80 Code: 8480-6 BMI: 27.3 Code: 03522-2 Heart Rate 1: 72 bpm Height: 5'4" [...] prozac Encounters Encounter Performer Location Codes Date ([id number]) OFFICE/OUTPATIENT VISIT EST Diagnosis: Chronic pain syndrome[ICD10: G89.4] Diagnosis: Localized edema[ICD10: R60.0] Diagnosis: Chronic obstructive pulmonary disease, unspecified[ICD10: J44.9] Diagnosis: Other fatigue[ICD10: R53.83] Diagnosis: Muscle weakness (generalized)[ICD10: M62.81] Diagnosis: Spinal stenosis, lumbar region with neurogenic claudication[ICD10: M48.062] Vika RENTERIA [facility] CPT-4: 02274 11/29/2019 ([id number]) OFFICE/OUTPATIENT VISIT EST Diagnosis: Chronic pain syndrome[ICD10: G89.4] Diagnosis: Lumbar degenerative disc disease[ICD10: M51.36] Diagnosis: Muscle spasm[ICD10: M62.838] Diagnosis: Spinal stenosis, lumbar region with neurogenic claudication[ICD10: M48.062] Diagnosis: Spondylosis without myelopathy or radiculopathy, 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] Vika RENTERIA [facility] CPT-4: 96657 10/30/2019 ([id number]) OFFICE/OUTPATIENT VISIT EST Diagnosis: Chronic pain syndrome[ICD10: G89.4] Vika RENTERIA DO [facility] CPT-4: 22728 10/25/2019 ([id number]) OFFICE/OUTPATIENT VISIT EST Diagnosis: Epigastric pain[ICD10: R10.13] Diagnosis: Nausea[ICD10: R11.0] Diagnosis: Chronic obstructive pulmonary disease, unspecified[ICD10: J44.9] Vika RENTERIA DO [facility] CPT-4: 18106 07/26/2019 ([id number]) OFFICE/OUTPATIENT VISIT EST Diagnosis: Chronic obstructive pulmonary disease with (acute) exacerbation[ICD10: J44.1] Diagnosis: Chronic respiratory failure with hypoxia[ICD10: J96.11] Diagnosis: Other fatigue[ICD10: R53.83] Diagnosis: Edema, unspecified[ICD10: R60.9] Vika RENTERIA DO [facility] CPT-4: 43298 07/19/2019 ([id number]) OFFICE/OUTPATIENT VISIT EST Diagnosis: Chronic obstructive pulmonary disease with acute lower respiratory infection[ICD10: J44.0] Vika RENTERIA DO [facility] CPT-4: 26852 07/10/2019 ([id number]) OFFICE/OUTPATIENT VISIT EST Diagnosis: Type 2 diabetes mellitus with hyperglycemia[ICD10: E11.65] Diagnosis: Other infective otitis externa, left ear[ICD10: H60.392] Vika RENTERIA DO [facility] CPT-4: 21189 06/05/2019 ([id number]) OFFICE/OUTPATIENT VISIT EST Diagnosis: Chronic obstructive pulmonary disease with (acute) exacerbation[ICD10: J44.1] Diagnosis: Type 2 diabetes mellitus with hyperglycemia[ICD10: E11.65] iVka RENTERIA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
--- OUTSIDE RECORDS SUMMARY | 2020-04-24 23:24 | XMS REPORT | CCD ---
Author Author Yana Renteria D.O. Organization [facility] Address [address] [place] [address] Phone Care Team Providers Care Mounter Hand Name Role Phone Vika Renteria D.O., PP Unavailable CCM Unavailable Summary Purpose Interface Exchange Insurance Providers Payer name Policy type / Coverage type Covered green party ID Effective Begin Date Effective End Date [employer] [facility] Medicaid [id number] 2018 U nknown Family History Family History data not found Social History Social History Element Codes Description Effective Dates Marital status Unknown 06/28/[address]: [id number] Currently smokes tobacco 05/2013 Allergies, Adverse Reactions, [...] Start Date Stop Date Status Fill Instructions Medrol (Aníbal) 4 mg tablets in a dose pack RxNorm: 803363 6 Tablet(s) Oral QD --then as directed 11/30/2019 12/05/2019 Active MS Contin 200 mg tablet,extended release RxNorm: 450069 1 Tablet(s) Oral two times a day 11/29/2019 12/29/2019 Active cyclobenzaprine 10 mg tablet RxNorm: 935958 TAKE ONE TA BLET BY MOUTH THREE TIMES A DAY NEEDED 11/21/2019 No Stop Date Active MS Contin 200 mg tablet,extended release RxNorm: 305599 1 Tablet(s) Oral two times a day replaces 100mg dose 11/03/2019 11/02/2019 Inactive MS Contin 200 mg tablet,extended release RxNorm: 817273 1 Tablet(s) Oral two times a day replaces 100mg dose 11/03/2019 11/29/2019 Inactive ferrous sulfate 325 mg (65 mg iron) tablet RxNorm: 748451 1 Tab let(s) Oral QD 10/30/2019 No Stop Date Active MS Contin 100 mg tablet,extended release RxNorm: 392381 1 Table t(s) Oral QD 10/30/2019 10/29/2019 Inactive MS Contin 100 mg tablet,extended release RxNorm: 458168 1 Table t(s) Oral QD 10/30/2019 11/02/2019 Inactive Relistor 150 mg tablet RxNorm: 7203823 TAKE THREE TABLETS BY BENOIT TH DAILY 10/25/2019 No Stop Date Active pantoprazole 40 mg tablet,delayed release RxNorm: 066558 1 Tabl et(s) Oral QD 10/25/2019 No Stop Date Active metformin 500 mg tablet RxNorm: 122134 1 Tablet(s) Oral QD 10/25/20 No Stop Date Active levothyroxine 25 mcg tablet RxNorm: 379903 1 Tablet(s) Oral QAM 02/201912/23/2019 Active Minipress 2 mg capsule RxNorm: 384763 1 Capsule(s) Oral QAM and 3 at bedtime 10/25/2019 No Stop Date Active Lancets, Super Thin RxNorm: 1 Unit Dose Miscellaneous QD 9 11/27/2020 Active Cymbalta 60 mg capsule,delayed release RxNorm: 271902 1 Capsule (s) Oral QAM 10/25/2019 No Stop Date Active Cymbalta 30 mg capsule,delayed release RxNorm: 727589 1 Capsule (s) Oral QAM 10/25/2019 No Stop Date Active oxycodone 15 mg tablet RxNorm: 1581888 1 Tablet(s) Oral four times a day as needed for pain 10/25/2019 11/28/2019 Inactive levothyroxine 25 mcg tablet RxNorm: 252242 1 Tablet(s) Oral QAM 02/201910/24/2019 Inactive MS Contin 100 mg tablet,extended release RxNorm: 613200 1 Tablet(s) Oral two times a day replaces fentanyl 10/25/2019 10/25/2019 Inactive Premarin 0.45 mg tablet RxNorm: 979575 TAKE ONE TABLET BY MOUTH DAILY 10/24/2019 No Stop Date Active Duragesic 100 mcg/hr transdermal patch RxNorm: 332396 2 Application TD Q48H for pain 10/18/2019 10/24/2019 Inactive gabapentin 300 mg capsule RxNorm: 310145 TAKE ONE CAPSULE BY MO [facility] TWICE A DAY 10/16/2019 No Stop Date Active cyclobenzaprine 10 mg tablet RxNorm: 507032 TAKE ONE TA BLET BY MOUTH THREE TIMES A DAY NEEDED 09/27/2019 11/20/2019 Inactive ProAir HFA 90 mcg/actuation aerosol inhaler RxNorm: 459033 INHALE ONE PUFF BY MOUTH EVERY 4 HOURS FOR WHEEZING OR FOR SHORTNESS OF BREATH 09/25/2019 No Stop Date Active furosemide 40 mg tablet RxNorm: 207713 1 Tablet(s) Oral QAM as needed 09/25/2019 09/25/2019 Inactive Relistor 150 mg tablet RxNorm: 2576033 TAKE THREE TABLETS BY BENOIT TH DAILY 09/25/2019 10/24/2019 Inactive oxycodone 15 mg tablet RxNorm: 8663113 1 Tablet(s) PO QID as nee ded for pain 09/21/2019 10/24/2019 Inactive Duragesic 100 mcg/hr transdermal patch RxNorm: 640149 2 Application TD Q48H for pain 09/19/2019 10/17/2019 Inactive Daliresp 500 mcg tablet RxNorm: 7460879 1 Tablet(s) Oral QD 019 03/08/2020 Active potassium chloride ER 20 mEq tablet,extended release RxNorm: 241332 TAKE ONE TABLET BY MOUTH DAILY 07/25/2019 01/20/2020 Active Relistor 150 mg tablet RxNorm: 1894763 TAKE THREE TABLETS BY BENOIT TH DAILY 07/25/2019 07/30/2019 Inactive cyclobenzaprine 10 mg tablet RxNorm: 253603 TAKE ONE TA BLET BY MOUTH THREE TIMES A DAY NEEDED 07/25/2019 09/22/2019 Inactive fluoxetine 40 mg capsule RxNorm: 233976 TAKE ONE CAPSULE BY BENOIT TH EVERY MORNING 07/11/2019 10/24/2019 Inactive Medrol (Aníbal) 4 mg tablets in a dose pack RxNorm: 113165 6 Tablet(s) PO QD --then as directed 07/10/2019 07/15/2019 Inactive omeprazole 40 mg capsule,delayed release RxNorm: 547289 1 Capsule(s) PO QD for stomach TAKE ONE CAPSULE BY MOUTH DAILY 07/10/2019 10/24/2019 Inactive Augmentin 875 mg-125 mg tablet RxNorm: 466301 1 Tablet(s) PO BID 07/16/2019 Inactive Trulicity 0.75 mg/0.5 mL subcutaneous pen injector RxNorm: 1 220933 0.75 Milliliter(s) SQ weekly 07/05/2019 10/24/2019 Inactive Compazine 10 mg tablet RxNorm: 644592 TAKE ONE TABLET B Y MOUTH FOUR TIMES A DAY NEEDED FOR NAUSEA 06/20/2019 07/19/2019 Inactive ProAir HFA 90 mcg/actuation aerosol inhaler RxNorm: 725143 INHALE ONE PUFF BY MOUTH EVERY 4 HOURS FOR WHEEZING OR FOR SHORTNESS OF BREATH 06/20/2019 06/23/2019 Inactive Daliresp 500 mcg tablet RxNorm: 8596136 TAKE ONE TABLET BY MOUTH DAILY 06/12/2019 09/10/2019 Inactive boqkrlfq-zbawlchrh-acecnxduf 3.5 mg/mL-10,000 unit/mL- 1 % ear solution RxNorm: 867762 4 Drop(s) otic (ear) TID to left ear 06/05/2019 10/24/2019 Inac tive furosemide 40 mg tablet RxNorm: 176350 TAKE ONE TABLET BY MOUTH EVERY MORNING 05/26/2019 07/09/2019 Inactive Duragesic 100 mcg/hr transdermal patch RxNorm: 341017 2 Application TD Q48H for pain 05/16/2019 06/14/2019 Inactive oxycodone 15 mg tablet RxNorm: 6201738 1 Tablet(s) PO QID as nee ded for pain 05/10/2019 09/20/2019 Inactive doxycycline hyclate 100 mg capsule RxNorm: 8833347 1 Capsule(s) PO BID 05/03/2019 05/12/2019 Inactive prednisone 20 mg tablet RxNorm: 458831 1 Tablet(s) PO T ID for 3 days then 1 po BID for 3 days then one daily for 3 days 05/03/2019 07/11/2019 Inactiv e Ozempic 0.25 mg or 0.5 mg (2 mg/1.5 mL) subcutaneous p en injector RxNorm: 7228267 0.5 Milligram(s) SQ QW 05/03/2019 07/09/2019 Inactive fluconazole 100 mg tablet RxNorm: 790768 1 Tablet(s) PO QD 05/03/20 19 05/07/2019 Inactive Premarin 0.45 mg tablet RxNorm: 237546 TAKE ONE TABLET BY MOUTH DAILY 05/03/2019 10/23/2019 Inactive potassium chloride ER 20 mEq tablet,extended release RxNorm: 875803 1 Tablet(s) PO QD 04/27/2019 07/25/2019 Inactive potassium chloride ER 20 mEq tablet,extended release RxNorm: 903345 1 Tablet(s) PO QD 04/25/2019 04/26/2019 Inactive Compazine 10 mg tablet RxNorm: 854971 1 Tablet(s) PO QID as nee ded for nausea 04/25/2019 05/04/2019 Inactive ProAir HFA 90 mcg/actuation aerosol inhaler RxNorm: 538027 INHALE ONE PUFF BY MOUTH EVERY 4 HOURS FOR WHEEZING OR FOR SHORTNESS OF BREATH 04/12/2019 06/10/2019 Inactive Medrol (Aníbal) 4 mg tablets in a dose pack RxNorm: 258014 6 Tablet(s) PO QD --then as directed 04/11/2019 04/16/2019 Inactive Symbicort 160 mcg-4.5 mcg/actuation HFA aerosol inhaler RxNo rm: 8228505 2 Puff(s) INH BID 04/10/2019 10/06/2019 Inactive levothyroxine 50 mcg tablet RxNorm: 338720 1 Tablet(s) PO QD 201810/24/2019 Inactive gabapentin 300 mg capsule RxNorm: 430902 1 Capsule(s) PO BID 201810/02/2019 Inactive Symbicort 160 mcg-4.5 mcg/actuation HFA aerosol inhaler RxNo rm: 3758118 2 Puff(s) INH BID 04/06/2019 04/09/2019 Inactive oxycodone 15 mg tablet RxNorm: 8029460 1 Tablet(s) PO QID as nee ded for pain 04/05/2019 05/09/2019 Inactive levothyroxine 50 mcg tablet RxNorm: 521318 1 Tablet(s) PO QD 201804/09/2019 Inactive furosemide 40 mg tablet RxNorm: 738095 TAKE ONE TABLET BY MOUTH EVERY MORNING 03/21/2019 04/19/2019 Inactive levothyroxine 50 mcg tablet RxNorm: 110923 TAKE ONE TABLET BY M OUTH DAILY 03/21/2019 03/27/2019 Inactive Duragesic 100 mcg/hr transdermal patch RxNorm: 650305 2 Application TD Q48H for pain 03/13/2019 04/11/2019 Inactive oxycodone 15 mg tablet RxNorm: 3863673 1 Tablet(s) PO QID as nee ded for pain 03/06/2019 04/04/2019 Inactive Relistor 150 mg tablet RxNorm: 2262521 3 Tablet(s) PO QD 02/28/2019 0 05/28/2019 Inactive cyclobenzaprine 10 mg tablet RxNorm: 594767 1 Tablet(s) PO TID as needed 02/28/2019 05/28/2019 Inactive phentermine 37.5 mg tablet RxNorm: 785618 1 Tablet(s) PO QAM 201803/15/2019 Inactive Duragesic 100 mcg/hr transdermal patch RxNorm: 439236 2 Application TD Q48H for pain 02/09/2019 03/10/2019 Inactive Daliresp 500 mcg tablet RxNorm: 0456576 TAKE ONE TABLET BY MOUTH DAILY 01/31/2019 05/30/2019 Inactive Premarin 0.45 mg tablet RxNorm: 620554 1 Tablet(s) PO QD 01/31/2019 0 04/30/2019 Inactive fluoxetine 40 mg capsule RxNorm: 514458 Capsule(s) TAKE ONE CAPSULE BY MOUTH EVERY MORNING 01/31/2019 04/30/2019 Inactive levothyroxine 50 mcg tablet RxNorm: 486812 1 Tablet(s) PO QD 201804/10/2019 Inactive follow up in 3 weeks levothyroxine 50 mcg tablet RxNorm: 261856 1 Tablet(s) PO QD 201801/25/2019 Inactive follow up in 3 weeks potassium chloride ER 20 mEq tablet,extended release RxNorm: 886086 2 Tablet(s) PO BID 01/23/2019 02/14/2019 Inactive Synthroid 50 mcg tablet RxNorm: 557703 TAKE ONE TABLET BY MOUTH DAILY 01/16/2019 10/24/2019 Inactive potassium chloride ER 20 mEq tablet,extended release RxNorm: 499477 2 Tablet(s) PO BID 01/04/2019 01/22/2019 Inactive ProAir HFA 90 mcg/actuation aerosol inhaler RxNorm: 580432 INHALE ONE PUFF BY MOUTH EVERY 4 HOURS FOR WHEEZING OR SHORTNESS OF BREATH 01/04/201902/20 Inactive Request already responded to by other me ans (e.g. phone or fax) ProAir HFA 90 mcg/actuation aerosol inhaler RxNorm: 4759919 INHALE ONE PUFF BY MOUTH EVERY 4 HOURS FOR WHEEZING OR SHORTNESS OF BREATH 01/02/201912/23 Inactive gabapentin 300 mg capsule RxNorm: 615990 TAKE ONE CAPSULE BY MO UT TWICE A DAY 12/30/2018 04/06/2019 Inactive furosemide 40 mg tablet RxNorm: 044137 1 Tablet(s) PO QAM 12/26/2018 02/23/2019 Inactive Compazine 10 mg tablet RxNorm: 470464 1 Tablet(s) PO QID as nee ded for nausea 12/07/2018 12/16/2018 Inactive metolazone 2.5 mg tablet RxNorm: 028821 TAKE ONE TABLET BY MOUT H EVERY MORNING 12/05/2018 01/03/2019 Inactive metformin ER 500 mg tablet,extended release 24 hr RxNorm: 86 0975 TAKE ONE TABLET BY MOUTH DAILY 12/05/2018 04/10/2019 Inactive Synthroid 50 mcg tablet RxNorm: 319158 1 Tablet(s) PO QD 11/25/2018 0 01/03/2019 Inactive DC any other synthroid strengths. Should be 50mcg only cyclobenzaprine 10 mg tablet RxNorm: 238245 TAKE ONE TA BLET BY MOUTH THREE TIMES A DAY NEEDED 11/09/2018 02/06/2019 Inactive metolazone 2.5 mg tablet RxNorm: 745919 1 Tablet(s) PO QAM repl aces 5mg dose 11/02/2018 12/01/2018 Inactive potassium chloride ER 20 mEq tablet,extended release RxNorm: 786729 2 Tablet(s) PO QD 2018 01/02/2019 Inactive Compazine 10 mg tablet RxNorm: 950411 1 Tablet(s) PO QID as nee ded for nausea 10/18/2018 12/07/2018 Inactive furosemide 40 mg tablet RxNorm: 494020 1 Tablet(s) PO QAM 10/12/2018 12/10/2018 Inactive ondansetron 8 mg disintegrating tablet RxNorm: 356270 1 Tablet(s) PO Q6H as needed 10/11/2018 10/17/2018 Inactive scopolamine 1 mg over 3 days transdermal patch RxNorm: 22651 2 1 Application TD behind ear. Take off after three days 10/11/2018 01/02/2019 Inactive furosemide 40 mg tablet RxNorm: 586072 1 Tablet(s) PO QAM 10/10/2018 12/26/2018 Inactive metolazone 5 mg tablet RxNorm: 907773 1 Tablet(s) PO QAM 10/06/2018 1 01/03/2018 Inactive metolazone 5 mg tablet RxNorm: 081936 1 Tablet(s) PO QAM 10/06/2018 1 12/05/2017 Inactive Xtampza ER 36 mg capsule sprinkle RxNorm: 4893598 1 Capsule(s) P O BID 10/05/2018 01/02/2019 Inactive Xtampza ER 36 mg capsule sprinkle RxNorm: 6619813 1 Capsule(s) P O BID 10/05/2018 02/12/2019 Inactive omeprazole 40 mg capsule,delayed release RxNorm: 886761 TAKE ONE CAPSULE BY MOUTH DAILY 10/03/2018 12/31/2018 Inactive Duragesic 100 mcg/hr transdermal patch RxNorm: 208581 2 Application TD Q48H for pain 09/30/2018 10/29/2018 Inactive Synthroid 50 mcg tablet RxNorm: 964867 1 Tablet(s) PO QD 09/29/2018 0 11/25/2018 Inactive DC any other synthroid strengths. Should be 50mcg only Synthroid 50 mcg tablet RxNorm: 174432 1 Tablet(s) PO QD 09/29/2018 1 11/28/2017 Inactive furosemide 40 mg tablet RxNorm: 584631 2 Tablet(s) PO Q AM for 1 week then every other day for 2 weeks 09/27/2018 10/12/2018 Inactive fluoxetine 40 mg capsule RxNorm: 190375 2 Capsule(s) PO QD 09/27/20 18 10/17/2018 Inactive potassium chloride ER 20 mEq tablet,extended release RxNorm: 156047 2 Tablet(s) PO QD for 1 week then every other day for 2 weeks 09/27/2018 2018 Inactive ProAir HFA 90 mcg/actuation aerosol inhaler RxNorm: 1511700 INHALE ONE PUFF BY MOUTH EVERY 4 HOURS FOR WHEEZING OR SHORTNESS OF BREATH 09/26/201811/23 Inactive Synthroid 75 mcg tablet RxNorm: 022437 1 Tablet(s) PO QD 09/09/2018 1 Inactive Synthroid 75 mcg tablet RxNorm: 385857 1 Tablet(s) PO QD 09/09/2018 1 11/28/2017 Inactive furosemide 40 mg tablet RxNorm: 809997 1 Tablet(s) PO QD 09/06/2018 1 Inactive potassium chloride ER 20 mEq tablet,extended release RxNorm: 778570 1 Tablet(s) PO QD 09/06/2018 09/19/2018 Inactive Duragesic 100 mcg/hr transdermal patch RxNorm: 385094 2 Application TD Q48H for pain 08/30/2018 09/28/2018 Inactive gabapentin 300 mg capsule RxNorm: 231420 TAKE ONE CAPSULE BY MO UTH TWICE A DAY 08/23/2018 12/20/2018 Inactive Daliresp 500 mcg tablet RxNorm: 1132273 TAKE ONE TABLET BY MOUTH DAILY 08/23/2018 01/19/2019 Inactive Pulmicort 1 mg/2 mL suspension for nebulization RxNorm: 6168 19 USE ONE VIAL VIA NEBULIZER BY MOUTH TWICE A DAY 08/23/2018 07/11/2019 Inactive Synthroid 88 mcg tablet RxNorm: 282716 1 Tablet(s) PO QD 08/19/2018 1 Inactive Medrol (Aníbal) 4 mg tablets in a dose pack RxNorm: 347188 Tablet(s) PO take as directed 08/16/2018 09/05/2018 Inactive Relistor 150 mg tablet RxNorm: 3257356 3 Tablet(s) PO QD 08/16/2018 1 Inactive Zithromax Z-Aníbal 250 mg tablet RxNorm: 564808 Tablet(s) PO take as directed 08/16/2018 09/05/2018 Inactive cyclobenzaprine 10 mg tablet RxNorm: 840258 1 Tablet(s) PO TID as needed 08/16/2018 11/08/2018 Inactive Synthroid 88 mcg tablet RxNorm: 198936 1 Tablet(s) PO Q D NEEDS UPDATED LABS BEFORE FURTHER REFILLS 08/08/2018 08/19/2018 Inactive Premarin 0.45 mg tablet RxNorm: 574729 1 Tablet(s) PO QD 08/03/2018 0 01/31/2019 Inactive fluoxetine 20 mg capsule RxNorm: 203736 TAKE ONE CAPSULE BY BENOIT TH DAILY 08/03/2018 09/26/2018 Inactive Xtampza ER 36 mg capsule sprinkle RxNorm: 2899728 1 Capsule(s) P O BID 08/03/2018 09/01/2018 Inactive metformin ER 500 mg tablet,extended release 24 hr RxNorm: 86 0975 1 Tablet(s) PO QD 08/03/2018 10/31/2018 Inactive Symbicort 160 mcg-4.5 mcg/actuation HFA aerosol inhaler RxNo rm: 7058979 2 Puff(s) INH BID 08/03/2018 01/29/2019 Inactive Duragesic 100 mcg/hr transdermal patch RxNorm: 010724 2 Application TD Q48H for pain 07/29/2018 08/27/2018 Inactive ProAir HFA 90 mcg/actuation aerosol inhaler RxNorm: 011425 INHALE TWO PUFFS BY MOUTH EVERY 4 HOURS FOR WHEEZING OR SHORTNESS OF BREATH 07/27/201802/2018 Inactive Relistor 150 mg tablet RxNorm: 2741537 3 Tablet(s) PO QD 07/20/2018 0 08/15/2018 Inactive metformin ER 500 mg tablet,extended release 24 hr RxNorm: 86 0975 TAKE ONE TABLET BY MOUTH DAILY 07/08/2018 08/02/2018 Inactive fluoxetine 40 mg capsule RxNorm: 885749 TAKE ONE CAPSULE BY BENOIT TH EVERY MORNING 07/08/2018 10/05/2018 Inactive Xtampza ER 18 mg capsule sprinkle RxNorm: 6689910 1 Capsule(s) P O BID 07/08/2018 08/02/2018 Inactive Relistor 150 mg tablet RxNorm: 4272148 3 Tablet(s) PO QD 07/08/2018 0 07/12/2018 Inactive Synthroid 88 mcg tablet RxNorm: 669470 1 Tablet(s) PO Q D NEEDS UPDATED LABS BEFORE FURTHER REFILLS 06/23/2018 07/07/2018 Inactive fluoxetine 40 mg capsule RxNorm: 908860 TAKE ONE CAPSULE BY BENOIT TH EVERY MORNING 06/15/2018 09/26/2018 Inactive orphenadrine citrate ER 100 mg tablet,extended release RxNor m: 978182 TAKE ONE TABLET BY MOUTH TWICE A DAY FOR MUSCLE SPASM 06/15/2018 08/15/2018 Renu ctive Duragesic 100 mcg/hr transdermal patch RxNorm: 225590 2 Application TD Q48H for pain 05/30/2018 06/28/2018 Inactive ProAir HFA 90 mcg/actuation aerosol inhaler RxNorm: 804778 INHALE TWO PUFFS BY MOUTH EVERY 4 HOURS FOR WHEEZING OR SHORTNESS OF BREATH 05/19/201803/2018 Inactive Chantix Continuing Month Box 1 mg tablet RxNorm: 641092 TAKE ONE TABLET BY MOUTH TWICE A DAY 05/19/2018 08/15/2018 Inactive oxycodone 10 mg tablet RxNorm: 6607153 1-2 Tablet(s) PO QID as n eeded for pain 05/19/2018 07/07/2018 Inactive gabapentin 300 mg capsule RxNorm: 735718 TAKE ONE CAPSULE BY MO [facility] TWICE A DAY 05/18/2018 07/16/2018 Inactive ProAir HFA 90 mcg/actuation aerosol inhaler RxNorm: 745065 INHALE TWO PUFFS BY MOUTH EVERY 4 HOURS FOR WHEEZING OR SHORTNESS OF BREATH 05/04/201804/23 Inactive Augmentin 500 mg-125 mg tablet RxNorm: 546831 1 Tablet(s) PO BID 05/03/2018 Inactive oxycodone 10 mg tablet RxNorm: 1161886 1-2 Tablet(s) PO QID as n eeded for pain 04/21/2018 05/18/2018 Inactive Synthroid 88 mcg tablet RxNorm: 068180 1 Tablet(s) PO QD 04/15/2018 0 08/08/2018 Inactive Symbicort 160 mcg-4.5 mcg/actuation HFA aerosol inhaler RxNo rm: 7337963 2 Puff(s) INH BID 04/15/2018 04/10/2019 Inactive Premarin 0.45 mg tablet RxNorm: 672578 1 Tablet(s) PO QD 04/15/2018 0 08/03/2018 Inactive ProAir HFA 90 mcg/actuation aerosol inhaler RxNorm: 845250 2 Puff(s) INH Q4H prn for wheezing or shortness of breath 04/15/2018 05/03/2018 Inactive metformin ER 500 mg tablet,extended release 24 hr RxNorm: 86 0975 1 Tablet(s) PO QD 04/11/2018 07/07/2018 Inactive omeprazole 40 mg capsule,delayed release RxNorm: 162757 TAKE ONE CAPSULE BY MOUTH DAILY 04/10/2018 06/08/2018 Inactive Synthroid 88 mcg tablet RxNorm: 537353 1 Tablet(s) PO QD 04/04/2018 0 04/14/2018 Inactive Synthroid 88 mcg tablet RxNorm: 560075 1 Tablet(s) PO QD 04/04/2018 0 04/03/2018 Inactive orphenadrine citrate ER 100 mg tablet,extended release RxNor m: 037830 1 Tablet(s) PO BID for muscle spasm 04/04/2018 05/03/2018 Inactive metformin ER 500 mg tablet,extended release 24 hr RxNorm: 86 0975 1 Tablet(s) PO QD NEEDS UPDATED LABS 03/31/2018 04/11/2018 Inactive doxycycline hyclate 100 mg capsule RxNorm: 4750991 1 Capsule(s) PO BID 03/31/2018 04/09/2018 Inactive prednisone 20 mg tablet RxNorm: 120973 3 Tablet(s) PO T ID for 3 days then 1 po BID for 3 days then one daily for 3 days 03/31/2018 07/06/2018 Inactiv e Chantix Continuing Month Box 1 mg tablet RxNorm: 117739 TAKE ONE TABLET BY MOUTH TWICE A DAY 03/25/2018 03/30/2018 Inactive oxycodone 10 mg tablet RxNorm: 6318662 1-2 Tablet(s) PO QID as n eeded for pain 03/21/2018 04/20/2018 Inactive Daliresp 500 mcg tablet RxNorm: 0336305 1 Tablet(s) PO QD 03/15/2018 08/22/2018 Inactive metformin ER 500 mg tablet,extended release 24 hr RxNorm: 86 0975 1 Tablet(s) PO QD NEEDS UPDATED LABS 03/14/2018 03/31/2018 Inactive nystatin 100,000 unit/mL oral suspension RxNorm: 072830 5 Chio liter(s) PO QID 03/02/2018 03/15/2018 Inactive nystatin 100,000 unit/mL oral suspension RxNorm: 538979 5 Chio liter(s) PO QID 03/02/2018 03/01/2018 Inactive oxycodone 10 mg tablet RxNorm: 2815646 1-2 Tablet(s) PO QID as n eeded for pain 02/16/2018 03/20/2018 Inactive fluoxetine 20 mg capsule RxNorm: 806697 1 Capsule(s) PO QD 02/15/20 18 08/02/2018 Inactive metformin ER 500 mg tablet,extended release 24 hr RxNorm: 86 0975 1 Tablet(s) PO QD Needs updated labs 02/14/2018 03/14/2018 Inactive cefdinir 300 mg capsule RxNorm: 944619 1 Capsule(s) PO BID 01/27/20 18 02/04/2018 Inactive orphenadrine citrate ER 100 mg tablet,extended release RxNor m: 934769 1 Tablet(s) PO BID for muscle spasm 01/26/2018 04/04/2018 Inactive gabapentin 300 mg capsule RxNorm: 110325 1 Capsule(s) PO BID 201704/17/2018 Inactive oxycodone 10 mg tablet RxNorm: 7884061 1-2 Tablet(s) PO QID as n eeded for pain 01/17/2018 02/15/2018 Inactive Duragesic 100 mcg/hr transdermal patch RxNorm: 162500 2 Application TD Q48H for pain 01/17/2018 02/15/2018 Inactive gabapentin 300 mg capsule RxNorm: 355628 TAKE ONE CAPSULE BY MO UTH TWICE A DAY 12/20/2017 01/18/2018 Inactive fluoxetine 40 mg capsule RxNorm: 866962 TAKE ONE CAPSULE BY BENOIT TH EVERY MORNING 12/15/2017 03/14/2018 Inactive OneTouch Ultra Test strips RxNorm: TEST DAILY 11/04/2017 02/01/2018 Inactive gabapentin 300 mg capsule RxNorm: 645189 1 Capsule(s) P O TID replaces BID dosing 10/26/2017 02/22/2018 Inactive oxycodone 10 mg tablet RxNorm: 2496639 1-2 Tablet(s) PO QID as n eeded for pain 10/18/2017 01/16/2018 Inactive Duragesic 100 mcg/hr transdermal patch RxNorm: 537608 2 Application TD Q48H for pain 10/18/2017 11/16/2017 Inactive gabapentin 300 mg capsule RxNorm: 163641 1 Capsule(s) PO BID 201610/25/2017 Inactive Abilify 5 mg tablet RxNorm: 955041 1 Tablet(s) PO QAM 09/23/201702/2017 Inactive gabapentin 300 mg capsule RxNorm: 031305 1 Capsule(s) PO BID 201610/17/2017 Inactive oxycodone 10 mg tablet RxNorm: 5637061 1-2 Tablet(s) PO QID as n eeded for pain 09/15/2017 10/17/2017 Inactive Duragesic 100 mcg/hr transdermal patch RxNorm: 683594 2 Application TD Q48H for pain 09/15/2017 10/14/2017 Inactive Duragesic 100 mcg/hr transdermal patch RxNorm: 763177 2 Application TD Q48H for pain 09/15/2017 10/24/2019 Inactive oxycodone 10 mg tablet RxNorm: 2979129 1-2 Tablet(s) PO QID as n eeded for pain 09/15/2017 08/15/2018 Inactive Daliresp 500 mcg tablet RxNorm: 3659924 1 Tablet(s) PO QD 09/06/2017 03/15/2018 Inactive Ventolin HFA 90 mcg/actuation aerosol inhaler RxNorm: 556553 2 Puff(s) INH Q4H as needed 09/02/2017 05/19/2018 Inactive oxycodone 10 mg tablet RxNorm: 1248867 1-2 Tablet(s) PO QID as n eeded for pain 08/17/2017 09/14/2017 Inactive Duragesic 100 mcg/hr transdermal patch RxNorm: 062820 2 Application TD Q48H for pain 08/17/2017 09/14/2017 Inactive fluoxetine 40 mg capsule RxNorm: 825518 Capsule(s) TAKE ONE CAPSULE BY MOUTH EVERY MORNING 08/17/2017 12/14/2017 Inactive Pulmicort 1 mg/2 mL suspension for nebulization RxNorm: 6168 19 1 Unit Dose INH BID Dx: COPD (J44.9) 08/16/2017 08/22/2018 Inactive gabapentin 300 mg capsule RxNorm: 562480 1 Capsule(s) PO QHS 201610/18/2017 Inactive fluoxetine 20 mg capsule RxNorm: 468538 1 Capsule(s) PO QD 08/12/20 17 02/14/2018 Inactive Abilify 2 mg tablet RxNorm: 617980 1 Tablet(s) PO QD TA KE ONE TABLET BY MOUTH DAILY 08/12/2017 10/25/2017 Inactive metformin ER 500 mg tablet,extended release 24 hr RxNorm: 86 0975 1 Tablet(s) PO QD 08/10/2017 02/14/2018 Inactive Synthroid 112 mcg tablet RxNorm: 892535 1 Tablet(s) PO QD 08/10/2017 04/15/2018 Inactive oxycodone 10 mg tablet RxNorm: 1716799 1-2 Tablet(s) PO QID as n eeded for pain 07/19/2017 08/16/2017 Inactive Duragesic 100 mcg/hr transdermal patch RxNorm: 932166 2 Application TD Q48H for pain 07/19/2017 08/16/2017 Inactive Ventolin HFA 90 mcg/actuation aerosol inhaler RxNorm: 121625 2 Puff(s) INH Q4H as needed 07/12/2017 09/02/2017 Inactive Abilify 2 mg tablet RxNorm: 178787 1 Tablet(s) PO QD TA KE ONE TABLET BY MOUTH DAILY 07/06/2017 08/11/2017 Inactive gabapentin 800 mg tablet RxNorm: 760365 1 Tablet(s) PO TID 06/22/2007/05/2017 Inactive Chantix Starting Month Box 0.5 mg (11)-1 mg (42) table ts in dose pack RxNorm: 683045 TAKE BY MOUTH INSTRUCTED - PER PACKAGE INSTRUCTIONS 06/0707/04/2017 Inactive Ventolin HFA 90 mcg/actuation aerosol inhaler RxNorm: 650886 2 Puff(s) INH Q4H as needed 05/26/2017 07/12/2017 Inactive Duragesic 100 mcg/hr transdermal patch RxNorm: 936664 2 Application TD Q48H for pain 05/19/2017 06/17/2017 Inactive oxycodone 10 mg tablet RxNorm: 0388542 1-2 Tablet(s) PO QID as n eeded for pain 05/19/2017 07/18/2017 Inactive Abilify 2 mg tablet RxNorm: 152729 TAKE ONE TABLET BY MOUTH DAILY 0 05/10/2017 07/05/2017 Inactive Synthroid 112 mcg tablet RxNorm: 732134 1 Tablet(s) PO QD 05/06/2017 08/10/2017 Inactive metformin ER 500 mg tablet,extended release 24 hr RxNorm: 86 0975 1 Tablet(s) PO QD 05/06/2017 08/10/2017 Inactive Topamax 100 mg tablet RxNorm: 475196 1 Tablet(s) PO QHS 05/06/2017 Inactive Premarin 0.45 mg tablet RxNorm: 552153 1 Tablet(s) PO QD 05/06/2017 0 04/15/2018 Inactive orphenadrine citrate ER 100 mg tablet,extended release RxNor m: 464093 1 Tablet(s) PO TID for muscle spasm--replaces methocarbamol 04/29/2017 Inactive oxycodone 10 mg tablet RxNorm: 8983258 1-2 Tablet(s) PO QID as n eeded for pain 04/21/2017 05/18/2017 Inactive Duragesic 100 mcg/hr transdermal patch RxNorm: 789371 2 Application TD Q48H for pain 04/21/2017 05/18/2017 Inactive fluoxetine 40 mg capsule RxNorm: 181698 Capsule(s) TAKE ONE CAPSULE BY MOUTH EVERY MORNING 04/20/2017 08/17/2017 Inactive Ventolin HFA 90 mcg/actuation aerosol inhaler RxNorm: 621080 2 Puff(s) INH Q4H as needed 04/05/2017 05/26/2017 Inactive Symbicort 160 mcg-4.5 mcg/actuation HFA aerosol inhaler RxNo rm: 4348560 2 Puff(s) INH BID 03/30/2017 04/15/2018 Inactive Spiriva with HandiHaler 18 mcg and inhalation capsules RxNor m: 006141 1 Capsule(s) INH QD USING HANDIHALER 03/30/2017 02/12/2019 Inactive Duragesic 100 mcg/hr transdermal patch RxNorm: 030654 2 Application TD Q48H for pain 03/18/2017 04/16/2017 Inactive oxycodone 10 mg tablet RxNorm: 6054593 1-2 Tablet(s) PO QID as n eeded for pain 03/18/2017 04/20/2017 Inactive metformin ER 500 mg tablet,extended release 24 hr RxNorm: 86 0975 Tablet(s) TAKE ONE TABLET BY MOUTH DAILY 03/01/2017 05/06/2017 Inactive Premarin 0.45 mg tablet RxNorm: 046726 Tablet(s) TAKE ONE TABLE T BY MOUTH DAILY 03/01/2017 05/06/2017 Inactive Synthroid 112 mcg tablet RxNorm: 604705 Tablet(s) TAKE ONE TABLET BY MOUTH DAILY 03/01/2017 05/06/2017 Inactive Daliresp 500 mcg tablet RxNorm: 7010992 1 Tablet(s) PO QD 03/01/2017 09/06/2017 Inactive 16.2 mg-0.1037 mg-0.0194 mg tablet RxNorm: 7438248 Tablet(s) PO PRN for gas and cramping 02/23/2017 04/28/2017 Inactive TAKE TWO TABLET S BY MOUTH THREE TIMES A DAY NEEDED FOR GAS AND CRAMPING gabapentin 800 mg tablet RxNorm: 815022 1 Tablet(s) PO TID repl aces 600mg 02/23/2017 04/28/2017 Inactive Duragesic 100 mcg/hr transdermal patch RxNorm: 050890 2 Application TD Q48H for pain 02/17/2017 03/17/2017 Inactive fluoxetine 20 mg capsule RxNorm: 088119 1 Capsule(s) PO QD 02/18/2008/12/2017 Inactive oxycodone 20 mg tablet RxNorm: 1988119 1 Tablet(s) PO QID as nee ded for pain 02/17/2017 03/17/2017 Inactive Ventolin HFA 90 mcg/actuation aerosol inhaler RxNorm: 052245 INHALE TWO PUFFS BY MOUTH EVERY 4 HOURS NEEDED 02/15/2017 04/05/2017 Inactive Silvadene 1 % topical cream RxNorm: 931568 1 Application TOP BI D to burn area 02/01/2017 09/22/2017 Inactive Topamax 100 mg tablet RxNorm: 789085 TAKE ONE TABLET BY MOUTH EVERY NIGHT AT BEDTIME 01/29/2017 05/06/2017 Inactive Chantix Starting Month Box 0.5 mg (11)-1 mg (42) table ts in dose pack RxNorm: 751799 Tablet(s) PO as directed 01/29/2017 06/01/2017 Inactive Abilify 2 mg tablet RxNorm: 977410 TAKE ONE TABLET BY MOUTH DAILY 0 01/26/2017 04/25/2017 Inactive Chantix Starting Month Box 0.5 mg (11)-1 mg (42) table ts in dose pack RxNorm: 802700 Tablet(s) PO as directed 01/20/2017 01/28/2017 Inactive gabapentin 600 mg tablet RxNorm: 380661 1 Tablet(s) PO TID 01/21/20 17 02/22/2017 Inactive Chantix Continuing Month Box 1 mg tablet RxNorm: 084684 1 Table t(s) PO BID 12/31/2016 06/01/2017 Inactive Spiriva with HandiHaler 18 mcg and inhalation capsules RxNor m: 460190 INHALE THE ENTIRE CONTENTS OF 1 CAPSULE ONCE A DAY USING HANDIHALER 12/31/201607/2017 Inactive Synthroid 112 mcg tablet RxNorm: 652265 TAKE ONE TABLET BY MOUT H DAILY 12/30/2016 03/01/2017 Inactive metformin ER 500 mg tablet,extended release 24 hr RxNorm: 86 0975 TAKE ONE TABLET BY MOUTH DAILY 12/30/2016 03/01/2017 Inactive Premarin 0.45 mg tablet RxNorm: 708943 TAKE ONE TABLET BY MOUTH DAILY 12/30/2016 03/01/2017 Inactive omeprazole 40 mg capsule,delayed release RxNorm: 874968 TAKE ONE CAPSULE BY MOUTH DAILY 12/30/2016 01/25/2018 Inactive Ventolin HFA 90 mcg/actuation aerosol inhaler RxNorm: 120859 INHALE TWO PUFFS BY MOUTH EVERY 4 HOURS NEEDED 12/28/2016 02/13/2017 Inactive fluoxetine 40 mg capsule RxNorm: 250236 TAKE ONE CAPSULE BY BENOIT TH EVERY MORNING 12/15/2016 04/20/2017 Inactive Chantix Continuing Month Box 1 mg tablet RxNorm: 753094 TAKE ONE TABLET BY MOUTH TWICE A DAY 12/04/2016 12/31/2016 Inactive doxycycline hyclate 100 mg capsule RxNorm: 2861443 1 Capsule(s) PO BID 12/01/2016 12/07/2016 Inactive Levaquin 750 mg tablet RxNorm: 567541 1 Tablet(s) PO QD 12/01/2016 Inactive Abilify 2 mg tablet RxNorm: 537050 TAKE ONE TABLET BY MOUTH DAILY 0 11/25/2016 11/30/2016 Inactive Ventolin HFA 90 mcg/actuation aerosol inhaler RxNorm: 645755 INHALE TWO PUFFS BY MOUTH EVERY 4 HOURS NEEDED 11/02/2016 12/19/2016 Inactive Chantix Continuing Month Box 1 mg tablet RxNorm: 583959 Tablet(s) PO as directed 10/30/2016 12/03/2016 Inactive Symbicort 160 mcg-4.5 mcg/actuation HFA aerosol inhaler RxNo rm: 6248198 INHALE TWO PUFFS TWO TIMES A DAY 10/30/2016 03/30/2017 Inactive Abilify 2 mg tablet RxNorm: 327010 1 Tablet(s) PO QD 10/27/201611/24 Inactive amoxicillin 500 mg capsule RxNorm: 090625 1 Capsule(s) PO TID 10/1410/23/2016 Inactive amoxicillin 500 mg capsule RxNorm: 716019 1 Capsule(s) PO TID 10/1410/13/2016 Inactive Synthroid 112 mcg tablet RxNorm: 775459 TAKE ONE TABLET BY MOUT H DAILY 09/28/2016 12/29/2016 Inactive Topamax 100 mg tablet RxNorm: 837041 TAKE ONE TABLET BY MOUTH EVERY NIGHT AT BEDTIME 09/28/2016 01/28/2017 Inactive Premarin 0.45 mg tablet RxNorm: 131819 TAKE ONE TABLET BY MOUTH DAILY 09/28/2016 12/29/2016 Inactive metformin ER 500 mg tablet,extended release 24 hr RxNorm: 86 0975 TAKE ONE TABLET BY MOUTH DAILY 09/28/2016 12/29/2016 Inactive Ventolin HFA 90 mcg/actuation aerosol inhaler RxNorm: 560881 INHALE TWO PUFFS BY MOUTH EVERY 4 HOURS NEEDED 09/22/2016 10/23/2016 Inactive Pulmicort 1 mg/2 mL suspension for nebulization RxNorm: 6168 19 1 Unit Dose INH BID Dx: COPD (J44.9) 09/10/2016 08/16/2017 Inactive Pulmicort 1 mg/2 mL suspension for nebulization RxNorm: 6168 19 1 Unit Dose INH BID 09/10/2016 09/09/2016 Inactive Brovana 15 mcg/2 mL solution for nebulization RxNorm: 058690 1 Unit Dose INH BID Dx: COPD (J44.9) 09/10/2016 01/25/2018 Inactive Brovana 15 mcg/2 mL solution for nebulization RxNorm: 385205 1 Unit Dose INH BID 09/10/2016 09/09/2016 Inactive ipratropium-albuterol 0.5 mg-3 mg(2.5 mg base)/3 mL ne bulization soln RxNorm: 7172533 1 Unit Dose INH Q4H as needed Dx: COPD (J44.9) 09/10/2016 0 02/12/2019 Inactive orphenadrine citrate ER 100 mg tablet,extended release RxNor m: 519279 1 Tablet(s) PO BID for muscle spasm--replaces methocarbamol 09/09/2016 Inactive Chantix Continuing Month Box 1 mg tablet RxNorm: 326913 Tablet(s) PO as directed 09/09/2016 10/30/2016 Inactive orphenadrine citrate ER 100 mg tablet,extended release RxNor m: 753606 1 Tablet(s) PO BID for muscle spasm 09/09/2016 09/08/2016 Inactive Spiriva with HandiHaler 18 mcg and inhalation capsules RxNor m: 391858 INHALE THE ENTIRE CONTENTS OF 1 CAPSULE ONCE A DAY USING HANDIHALER 09/01/201605/2017 Inactive Daliresp 500 mcg tablet RxNorm: 6924414 1 Tablet(s) PO QD 08/27/2016 03/01/2017 Inactive prednisone 20 mg tablet RxNorm: 334444 3 Tablet(s) PO T ID for 3 days then 1 po BID for 3 days then one daily for 3 days 08/26/2016 04/28/2017 Inactiv e Wellbutrin XL 300 mg 24 hr tablet, extended release RxNorm: 514775 TAKE ONE TABLET BY MOUTH EVERY MORNING 07/29/2016 10/26/2016 Inactive gabapentin 600 mg tablet RxNorm: 480855 1 Tablet(s) PO BID 06/26/20 16 12/22/2016 Inactive fluoxetine 40 mg capsule RxNorm: 935265 TAKE ONE CAPSULE BY BENOIT TH EVERY MORNING 06/24/2016 11/20/2016 Inactive Duragesic 100 mcg/hr transdermal patch RxNorm: 405077 2 Application TD Q48H for pain 06/05/2016 07/04/2016 Inactive oxycodone 10 mg tablet RxNorm: 4065142 1-2 Tablet(s) PO QID as n eeded for pain 06/05/2016 03/17/2017 Inactive Belladonna-Phenobarbital 48 mg tablet,extended release RxNor m: 2 Tablet(s) PO TID 06/05/2016 01/19/2017 Inactive Premarin 0.45 mg tablet RxNorm: 491725 TAKE ONE TABLET BY MOUTH DAILY 05/27/2016 09/23/2016 Inactive Topamax 100 mg tablet RxNorm: 925533 TAKE ONE TABLET BY MOUTH EVERY NIGHT AT BEDTIME 05/27/2016 09/27/2016 Inactive Synthroid 112 mcg tablet RxNorm: 370187 TAKE ONE TABLET BY MOUT H DAILY 05/27/2016 09/23/2016 Inactive metformin ER 500 mg tablet,extended release 24 hr RxNorm: 86 0975 TAKE ONE TABLET BY MOUTH DAILY 05/27/2016 09/23/2016 Inactive Symbicort 160 mcg-4.5 mcg/actuation HFA aerosol inhaler RxNo rm: 8195573 INHALE TWO PUFFS TWO TIMES A DAY 05/27/2016 10/23/2016 Inactive Ventolin HFA 90 mcg/actuation aerosol inhaler RxNorm: 087540 INHALE TWO PUFFS BY MOUTH EVERY 4 HOURS NEEDED 05/21/2016 07/07/2016 Inactive omeprazole 40 mg capsule,delayed release RxNorm: 101612 1 Capsu le(s) PO QD 05/06/2016 08/03/2016 Inactive metformin ER 500 mg tablet,extended release 24 hr RxNorm: 86 0975 TAKE ONE TABLET BY MOUTH DAILY 04/23/2016 05/22/2016 Inactive methocarbamol 750 mg tablet RxNorm: 999465 2 Tablet(s) PO TID as needed for muscle spasm 04/23/2016 09/08/2016 Inactive Synthroid 112 mcg tablet RxNorm: 017747 TAKE ONE TABLET BY MOUT H DAILY 04/23/2016 05/22/2016 Inactive Spiriva with HandiHaler 18 mcg and inhalation capsules RxNor m: 068432 INHALE THE ENTIRE CONTENTS OF 1 CAPSULE ONCE A DAY USING HANDIHALER 04/09/201608/2016 Inactive Diflucan 100 mg tablet RxNorm: 445656 1 Tablet(s) PO QD 04/08/2016 Inactive doxycycline hyclate 100 mg capsule RxNorm: 6014959 1 Capsule(s) PO BID 04/08/2016 04/17/2016 Inactive doxycycline hyclate 100 mg capsule RxNorm: 7211082 1 Capsule(s) PO BID 04/08/2016 04/07/2016 Inactive Diflucan 100 mg tablet RxNorm: 332143 1 Tablet(s) PO QD 04/08/2016 Inactive ondansetron HCl 4 mg tablet RxNorm: 898927 1 Tablet(s) PO Q4H as needed for nausea and vomiting 04/08/2016 09/22/2017 Inactive gabapentin 600 mg tablet RxNorm: 201881 TAKE ONE TABLET BY MOUT H TWICE A DAY 03/24/2016 06/25/2016 Inactive Synthroid 112 mcg tablet RxNorm: 697535 TAKE ONE TABLET BY MOUT H DAILY 02/25/2016 04/22/2016 Inactive Levaquin 500 mg tablet RxNorm: 165275 1 Tablet(s) PO QD 01/23/2016 Inactive prednisone 20 mg tablet RxNorm: 063295 1 Tablet(s) PO T ID for 3 days then 1 po BID for 3 days then one daily for 3 days 01/23/2016 08/25/2016 Inactiv e [employer] Ultra Test strips RxNorm: TEST BLOOD SUGAR ONCE DAILY 250.00 01/09/2016 11/04/2017 Inactive methocarbamol 750 mg tablet RxNorm: 716438 2 Tablet(s) PO TID as needed for muscle spasm 01/09/2016 04/23/2016 Inactive lactulose 10 gram/15 mL oral solution RxNorm: 408249 [address](s) PO QD 01/09/2016 09/22/2017 Inactive TAKE 1 TABLESPOON BY MOUTH ONCE DAILY metformin ER 500 mg tablet,extended release 24 hr RxNorm: 86 0975 1 Tablet(s) PO QD 12/26/2015 04/22/2016 Inactive fluoxetine 20 mg capsule RxNorm: 870031 1 Capsule(s) PO QD 12/23/19 16 06/19/2016 Inactive Premarin 0.45 mg tablet RxNorm: 224182 TAKE ONE TABLET BY MOUTH DAILY 12/23/2015 05/20/2016 Inactive fluoxetine 40 mg capsule RxNorm: 203015 1 Capsule(s) PO QD 12/23/19 16 06/19/2016 Inactive TAKE ONE CAPSULE BY MOUTH EV JANKI MORNING azithromycin 500 mg tablet RxNorm: 548378 1 Tablet(s) PO QD 016 12/19/2015 Inactive Zofran 4 mg tablet RxNorm: 253816 1 Tablet(s) PO Q4H prn nausea /vomiting 12/13/2015 03/30/2018 Inactive azithromycin 500 mg tablet RxNorm: 519710 1 Tablet(s) PO QD 016 12/12/2015 Inactive Duragesic 100 mcg/hr transdermal patch RxNorm: 094451 2 Application TD Q48H for pain 12/09/2015 01/07/2016 Inactive oxycodone 10 mg tablet RxNorm: 1388425 1-2 Tablet(s) PO QID as n eeded for pain 12/09/2015 06/04/2016 Inactive Bactroban 2 % topical cream RxNorm: 829719 Application TOP BID 11/2208/25/2016 Inactive doxycycline hyclate 100 mg capsule RxNorm: 0482794 1 Capsule(s) PO BID 12/03/2015 12/12/2015 Inactive Topamax 100 mg tablet RxNorm: 071336 TAKE ONE TABLET BY MOUTH EVERY NIGHT AT BEDTIME 11/25/2015 05/22/2016 Inactive Symbicort 160 mcg-4.5 mcg/actuation HFA aerosol inhaler RxNo rm: 3961312 INHALE TWO PUFFS TWO TIMES A DAY 11/25/2015 05/22/2016 Inactive Synthroid 112 mcg tablet RxNorm: 965084 Tablet(s) TAKE ONE TABLET BY MOUTH DAILY 11/25/2015 02/22/2016 Inactive omeprazole 40 mg capsule,delayed release RxNorm: 353588 1 Capsu le(s) PO QD 11/12/2015 05/05/2016 Inactive oxycodone 10 mg tablet RxNorm: 0356517 1-2 Tablet(s) PO QID as n eeded for pain 11/05/2015 12/08/2015 Inactive Duragesic 100 mcg/hr transdermal patch RxNorm: 690218 2 Application TD Q48H for pain 11/05/2015 12/04/2015 Inactive omeprazole 40 mg capsule,delayed release RxNorm: 081047 1 Capsu le(s) PO QD 10/07/2015 11/11/2015 Inactive Januvia 100 mg tablet RxNorm: 127466 TAKE ONE TABLET BY MOUTH DAILY 09/11/2015 12/25/2015 Inactive Zithromax 500 mg tablet RxNorm: 981546 1 Tablet(s) PO QD 09/10/2015 1 Inactive prednisone 20 mg tablet RxNorm: 035223 1 Tablet(s) PO T ID for 3 days then 1 po BID for 3 days then one daily for 3 days 09/10/2015 08/25/2016 Inactiv e Wellbutrin XL 300 mg 24 hr tablet, extended release RxNorm: 545289 1 Tablet(s) PO QAM 09/10/2015 12/02/2015 Inactive Topamax 100 mg tablet RxNorm: 373385 TAKE ONE TABLET BY MOUTH EVERY NIGHT AT BEDTIME 09/02/2015 11/24/2015 Inactive Synthroid 112 mcg tablet RxNorm: 162798 TAKE ONE TABLET BY MOUT H DAILY 09/02/2015 11/25/2015 Inactive methocarbamol 750 mg tablet RxNorm: 537579 2 Tablet(s) PO TID as needed for muscle spasm 08/15/2015 01/09/2016 Inactive Wellbutrin XL 150 mg 24 hr tablet, extended release RxNorm: 455142 TAKE ONE TABLET BY MOUTH EVERY MORNING 08/13/2015 08/13/2015 Inactive gabapentin 600 mg tablet RxNorm: 005859 1 Tablet(s) PO BID 08/13/20 15 02/08/2016 Inactive Wellbutrin XL 300 mg 24 hr tablet, extended release RxNorm: 251898 1 Tablet(s) PO QAM 08/06/2015 09/09/2015 Inactive Wellbutrin XL 150 mg 24 hr tablet, extended release RxNorm: 359553 1 Tablet(s) PO QAM 07/18/2015 08/05/2015 Inactive prednisone 20 mg tablet RxNorm: 205757 1 Tablet(s) PO BID 07/18/2015 07/22/2015 Inactive doxycycline hyclate 100 mg tablet,delayed release RxNorm: 43 4018 1 Tablet(s) PO BID 07/18/2015 07/27/2015 Inactive pravastatin 40 mg tablet RxNorm: 697148 1 Tablet(s) PO QD NEEDS FASTING LAB 07/15/2015 07/14/2015 Inactive pravastatin 40 mg tablet RxNorm: 330707 1 Tablet(s) PO QD NEEDS FASTING LAB 07/15/2015 01/25/2018 Inactive Ventolin HFA 90 mcg/actuation aerosol inhaler RxNorm: 441512 2 Puff(s) INH Q4H 07/08/2015 07/07/2015 Inactive prn Premarin 0.45 mg tablet RxNorm: 841684 1 Tablet(s) PO QD 07/01/2015 0 12/22/2015 Inactive pravastatin 40 mg tablet RxNorm: 427486 1 Tablet(s) PO QD NEEDS FASTING LAB 06/14/2015 07/15/2015 Inactive Ventolin HFA 90 mcg/actuation aerosol inhaler RxNorm: 6373161 2 Puff(s) INH Q4H 06/06/2015 07/08/2015 Inactive prn albuterol sulfate 2.5 mg/3 mL (0.083 %) solution for n ebulization RxNorm: 280212 1 Unit Dose INH QID 05/30/2015 No Stop Date Active Duragesic 100 mcg/hr transdermal patch RxNorm: 492168 2 Application TD Q48H for pain 04/29/2015 05/28/2015 Inactive gabapentin 600 mg tablet RxNorm: 267981 1 Tablet(s) PO BID 04/11/20 15 08/13/2015 Inactive Onglyza 5 mg tablet RxNorm: 451875 1 Tablet(s) PO QD for blood suga r 04/10/2015 04/15/2015 Inactive [Brand Copay Card: RxBIN:[id number] PCN:CRISTIANA RxGRP:[id number] ID#:[id number]] methocarbamol 750 mg tablet RxNorm: 569501 2 Tablet(s) PO TID as needed for muscle spasm 03/28/2015 08/15/2015 Inactive pravastatin 40 mg tablet RxNorm: 868222 1 Tablet(s) PO QD 03/19/2015 03/18/2015 Inactive pravastatin 40 mg tablet RxNorm: 816534 1 Tablet(s) PO QD 03/19/2015 06/14/2015 Inactive lactulose 10 gram/15 mL oral solution RxNorm: 628770 [address]s) PO QD 03/07/2015 01/09/2016 Inactive TAKE 1 TABLESPOON BY MOUTH ONCE DAILY oxycodone 20 mg tablet RxNorm: 1298281 1 Tablet(s) PO QID as nee ded for pain 03/05/2015 07/08/2015 Inactive Topamax 100 mg tablet RxNorm: 632123 1 Tablet(s) PO QHS TAKE ONE TABLET BY MOUTH AT BEDTIME 02/25/2015 02/12/2019 Inactive metformin ER 500 mg tablet,extended release 24 hr RxNorm: 86 0975 1 Tablet(s) PO QD 02/11/2015 03/04/2015 Inactive take one tablet by mouth every day Daliresp 500 mcg tablet RxNorm: 6702826 1 Tablet(s) PO QD 02/11/2015 08/09/2015 Inactive Endocet 10 mg-325 mg tablet RxNorm: 2314291 1 Tablet(s) PO Q4H as needed for pain 01/23/2015 01/23/2015 Inactive gabapentin 600 mg tablet RxNorm: 717838 1 Tablet(s) PO BID 01/23/20 15 04/11/2015 Inactive methocarbamol 750 mg tablet RxNorm: 718453 2 Tablet(s) PO TID as needed for muscle spasm 01/15/2015 02/13/2015 Inactive fluoxetine 40 mg capsule RxNorm: 106016 1 Capsule(s) PO QD 01/14/20 15 12/23/2015 Inactive TAKE ONE CAPSULE BY MOUTH EV JANKI MORNING fluoxetine 20 mg capsule RxNorm: 129785 1 Capsule(s) PO QD 01/14/20 15 12/23/2015 Inactive Premarin 0.45 mg tablet RxNorm: 142699 1 Tablet(s) PO QD 01/02/2015 0 07/01/2015 Inactive Endocet 10 mg-325 mg tablet RxNorm: 9633977 1-2 Tablet(s) PO Q4H 02/12/2019 Inactive PRN PAIN Duragesic 100 mcg/hr transdermal patch RxNorm: 146243 2 Application TD Q48H for pain 12/25/2014 01/23/2015 Inactive Topamax 100 mg tablet RxNorm: 101557 1 Tablet(s) PO QHS TAKE ONE TABLET BY MOUTH AT BEDTIME 12/25/2014 02/24/2015 Inactive Tudorza Pressair 400 mcg/actuation breath activated RxNorm: 0736411 1 BID INHALE ONE PUFF INTO LUNGS TWO TIMES A DAY 12/17/2014 05/15/2015 Inactive Endocet 10 mg-325 mg tablet RxNorm: 3307924 1-2 Tablet(s) PO Q4H 12/19/2014 Inactive PRN PAIN Duragesic 100 mcg/hr transdermal patch RxNorm: 235230 2 Application TD Q48H for pain 11/20/2014 12/24/2014 Inactive [employer] Ultra Test strips RxNorm: TEST BLOOD SUGAR ONCE DAILY 250.00 11/16/2014 01/08/2016 Inactive omeprazole 40 mg capsule,delayed release RxNorm: 675797 1 Capsu le(s) PO QD 11/13/2014 11/12/2015 Inactive metformin ER 500 mg tablet,extended release 24 hr RxNorm: 86 0975 1 Tablet(s) PO QD 11/12/2014 02/11/2015 Inactive take one tablet by mouth every day Symbicort 160 mcg-4.5 mcg/actuation HFA aerosol inhaler RxNo rm: 5598530 2 Puff(s) INH BID 11/12/2014 03/11/2015 Inactive INHALE 2 PUFFS O RALLY TWO TIMES A DAY gabapentin 800 mg tablet RxNorm: 339286 1 Tablet(s) PO QD TAKE ONE TABLET BY MOUTH ONCE A DAY 10/22/2014 01/01/2015 Inactive Endocet 10 mg-325 mg tablet RxNorm: 4485782 1-2 Tablet(s) PO Q4H 11/15/2014 Inactive PRN PAIN Duragesic 100 mcg/hr transdermal patch RxNorm: 624621 2 Application TD Q48H for pain 10/17/2014 11/19/2014 Inactive gabapentin 800 mg tablet RxNorm: 539408 1 Tablet(s) PO QD TAKE ONE TABLET BY MOUTH ONCE A DAY 10/04/2014 10/21/2014 Inactive Premarin 0.9 mg tablet RxNorm: 865417 1 Tablet(s) PO QD TAKE ONE TABLET BY MOUTH ONCE A DAY 10/04/2014 01/01/2015 Inactive Spiriva with HandiHaler 18 mcg & inhalation capsules RxNorm: 891524 1 Capsule(s) INH QD 10/03/2014 04/30/2015 Inactive Levaquin 500 mg tablet RxNorm: 555345 1 Tablet(s) PO QD 10/03/2014 Inactive prednisone 20 mg tablet RxNorm: 484078 1 Tablet(s) PO QD 10/03/201412/09/2013 Inactive Duragesic 100 mcg/hr transdermal patch RxNorm: 053668 2 Application TD Q48H for pain 09/18/2014 10/16/2014 Inactive Endocet 10 mg-325 mg tablet RxNorm: 1418924 1-2 Tablet(s) PO Q4H 10/16/2014 Inactive PRN PAIN Synthroid 112 mcg tablet RxNorm: 188802 1 Tablet(s) QD 09/10/2014 Inactive Synthroid 112 mcg tablet RxNorm: 492811 TAKE ONE TABLET BY MOUTH ONE TIME A DAY. NEEDS LABS 09/10/2014 02/06/2015 Inactive omeprazole 40 mg capsule,delayed release RxNorm: 969900 1 Capsu le(s) PO QD 09/03/2014 11/13/2014 Inactive omeprazole 40 mg capsule,delayed release RxNorm: 052370 1 Capsu le(s) PO QD 09/03/2014 09/02/2014 Inactive Spiriva with HandiHaler 18 mcg & inhalation capsules RxNorm: 603223 1 Capsule(s) INH QD 08/27/2014 10/02/2014 Inactive gabapentin 600 mg tablet RxNorm: 411310 1 Tablet(s) PO BID 08/27/20 14 10/22/2014 Inactive Endocet 10 mg-325 mg tablet RxNorm: 8371147 1-2 Tablet(s) PO Q4H 09/17/2014 Inactive PRN PAIN fentanyl 100 mcg/hr transdermal patch RxNorm: 168883 1 Unit Dos e TD QD 08/21/2014 09/19/2014 Inactive Daliresp 500 mcg tablet RxNorm: 2947364 1 Tablet(s) PO QD 08/13/2014 02/11/2015 Inactive Synthroid 112 mcg tablet RxNorm: 044136 TAKE ONE TABLET BY MOUTH ONE TIME A DAY. NEEDS LABS 08/10/2014 09/10/2014 Inactive Endocet 10 mg-325 mg tablet RxNorm: 1262111 1-2 Tablet(s) PO Q4H 08/17/2014 Inactive PRN PAIN Duragesic 100 mcg/hr transdermal patch RxNorm: 412264 2 Application TD Q48H for pain 07/19/2014 09/17/2014 Inactive fluoxetine 40 mg capsule RxNorm: 272892 1 Capsule(s) PO QD 07/17/20 14 01/14/2015 Inactive TAKE ONE CAPSULE BY MOUTH EV JANKI MORNING fluoxetine 20 mg capsule RxNorm: 703418 1 Capsule(s) PO QD 07/17/20 14 01/14/2015 Inactive Spiriva with HandiHaler 18 mcg & inhalation capsules RxNorm: 825531 1 Capsule(s) INH QD 07/17/2014 08/26/2014 Inactive INHALE CONTENTS OF 1 CAPSULE(S) WITH HANDIHALER ONCE DAILY Zofran 4 mg tablet RxNorm: 576963 1 Tablet(s) PO Q4H prn nausea 07/25/2014 Inactive Synthroid 112 mcg tablet RxNorm: 165257 1 Tablet(s) PO QD 07/09/2014 07/09/2014 Inactive methocarbamol 750 mg tablet RxNorm: 239081 2 Tablet(s) PO TID as needed for muscle spasm 07/09/2014 09/06/2014 Inactive Synthroid 112 mcg tablet RxNorm: 712680 1 Tablet(s) PO QD - nee d labs 07/09/2014 08/07/2014 Inactive Medrol (Aníbal) 4 mg tablets in a dose pack RxNorm: 146534 6 Tablet(s) PO QD --then as directed 07/03/2014 07/08/2014 Inactive Tudorza Pressair 400 mcg/actuation breath activated RxNorm: 4301893 1 Puff(s) INH BID 07/03/2014 12/17/2014 Inactive cefdinir 300 mg capsule RxNorm: 112647 1 Capsule(s) PO BID 07/03/20 14 07/12/2014 Inactive Topamax 100 mg tablet RxNorm: 925910 Tablet(s) TAKE ONE TABLET BY MOUTH AT BEDTIME 07/02/2014 02/25/2015 Inactive Duragesic 100 mcg/hr transdermal patch RxNorm: 548499 2 Application TD Q48H for pain 06/25/2014 07/18/2014 Inactive Endocet 10 mg-325 mg tablet RxNorm: 0191423 1-2 Tablet(s) PO Q4H 07/18/2014 Inactive PRN PAIN metformin ER 500 mg tablet,extended release 24 hr RxNorm: 86 0975 1 Tablet(s) PO QD Needs labs 06/18/2014 07/01/2014 Inactive take one tablet by mouth every day Duragesic 100 mcg/hr transdermal patch RxNorm: 814765 2 Application TD Q48H for pain 05/22/2014 06/24/2014 Inactive Synthroid 112 mcg tablet RxNorm: 641116 1 Tablet(s) PO QD 05/22/2014 07/09/2014 Inactive Endocet 10 mg-325 mg tablet RxNorm: 8222497 1-2 Tablet(s) PO Q4H 06/20/2014 Inactive PRN PAIN Endocet 10 mg-325 mg tablet RxNorm: 5145761 1-2 Tablet(s) PO Q4H 05/21/2014 Inactive PRN PAIN Duragesic 100 mcg/hr transdermal patch RxNorm: 077199 2 Application TD Q48H for pain 04/25/2014 05/21/2014 Inactive Daliresp 500 mcg tablet RxNorm: 9813402 1 Tablet(s) PO QD 04/24/2014 08/13/2014 Inactive Symbicort 160 mcg-4.5 mcg/actuation HFA aerosol inhaler RxNo rm: 9923172 2 Puff(s) INH BID 04/24/2014 08/21/2014 Inactive INHALE 2 PUFFS O RALLY TWO TIMES A DAY metformin ER 500 mg tablet,extended release 24 hr RxNorm: 86 0975 1 Tablet(s) PO QD 04/24/2014 11/12/2014 Inactive TAKE ONE TABLET BY MOUTH EVERY DAY [AttnRPh:Saving Apply/Adjudicate RxGRP:LDMGRP RxBIN:[id number] RxPCN:2012 PCode:01 ID#:[id number]] Symbicort 160 mcg-4.5 mcg/actuation HFA aerosol inhaler RxNo rm: [id number] 2 Puff(s) INH BID 04/24/2014 11/12/2014 Inactive INHALE 2 PUFFS O RALLY TWO TIMES A DAY Premarin 0.9 mg tablet RxNorm: 898990 1 Tablet(s) PO QD 04/24/2014 Inactive TAKE ONE TABLET BY MOUTH EVERY DAY metformin ER 500 mg tablet,extended release 24 hr RxNorm: 86 0975 1 Tablet(s) PO QD Needs labs 04/24/2014 06/18/2014 Inactive TAKE ONE TABLET BY MOUTH EVERY DAY [AttnRPh:Saving Apply/Adjudicate RxGRP:LDMGRP RxBIN:[id number] RxPCN:2012 PCode:01 ID#:[id number]] gabapentin 800 mg tablet RxNorm: 540262 1 Tablet(s) PO QD 04/24/2014 10/04/2014 Inactive TAKE ONE TABLET BY MOUTH EVERY DAY Topamax 100 mg tablet RxNorm: 914546 1 Tablet(s) PO QHS 04/17/2014 Inactive Topamax 100 mg tablet RxNorm: 888294 TAKE ONE TABLET BY MOUTH A T BEDTIME 04/17/2014 07/01/2014 Inactive Tudorza Pressair 400 mcg/actuation breath activated RxNorm: 1619129 1 Puff(s) INH BID 04/11/2014 07/02/2014 Inactive Duragesic 100 mcg/hr transdermal patch RxNorm: 970135 2 Application TD Q48H for pain 03/27/2014 04/24/2014 Inactive Endocet 10 mg-325 mg tablet RxNorm: 9279893 1-2 Tablet(s) PO Q4H 04/24/2014 Inactive PRN PAIN Robaxin 750 mg tablet RxNorm: 680985 2 Tablet(s) PO TID as need ed for spasm 02/23/2014 03/28/2015 Inactive Duragesic 100 mcg/hr transdermal patch RxNorm: 383584 2 Application TD Q48H for pain 02/23/2014 No Stop Date Active Endocet 10 mg-325 mg tablet RxNorm: 7597650 1-2 Tablet(s) PO Q4H 03/23/2014 Inactive PRN PAIN Synthroid 112 mcg tablet RxNorm: 272979 1 Tablet(s) PO QD TAKE ONE TABLET BY MOUTH EVERY DAY 02/15/2014 05/22/2014 Inactive Zithromax 500 mg tablet RxNorm: 299249 1 Tablet(s) PO QD 01/30/2014 0 02/05/2014 Inactive Diflucan 100 mg tablet RxNorm: 507857 1 Tablet(s) PO QD 01/30/2014 Inactive prednisone 20 mg tablet RxNorm: 864343 1 Tablet(s) PO BID 01/30/2014 02/05/2014 Inactive fluoxetine 40 mg capsule RxNorm: 147245 1 Capsule(s) PO QD 01/23/20 14 07/16/2014 Inactive TAKE ONE CAPSULE BY MOUTH EV JANKI MORNING fluoxetine 40 mg capsule RxNorm: 611733 1 Capsule(s) PO QD 01/23/20 14 07/17/2014 Inactive TAKE ONE CAPSULE BY MOUTH EV JANKI MORNING cefdinir 300 mg capsule RxNorm: 304488 1 Capsule(s) PO BID 01/16/20 14 01/29/2014 Inactive Zithromax 500 mg tablet RxNorm: 249360 1 Tablet(s) PO QD 01/16/2014 0 01/22/2014 Inactive prednisone 20 mg tablet RxNorm: 840307 1 Tablet(s) PO BID 01/16/2014 01/22/2014 Inactive Spiriva with HandiHaler 18 mcg and inhalation capsules RxNor m: 062727 1 Capsule(s) INH QD 12/18/2013 07/17/2014 Inactive INHALE CONTENT S OF 1 CAPSULE(S) WITH HANDIHALER ONCE DAILY fluoxetine 20 mg capsule RxNorm: 404210 1 Capsule(s) PO QD 12/18/19 14 06/15/2014 Inactive Spiriva with HandiHaler 18 mcg & inhalation capsules RxNorm: 589969 1 Capsule(s) INH QD 12/18/2013 06/15/2014 Inactive INHALE CONTENTS OF 1 CAPSULE(S) WITH HANDIHALER ONCE DAILY fluoxetine 20 mg capsule RxNorm: 876233 1 Capsule(s) PO QD 12/18/19 14 07/17/2014 Inactive cefdinir 300 mg capsule RxNorm: 759932 2 Capsule(s) PO QD 12/12/2013 12/21/2013 Inactive Duragesic 100 mcg/hr transdermal patch RxNorm: 378459 2 Application TD Q48H for pain 12/08/2013 12/07/2013 Inactive Topamax 100 mg tablet RxNorm: 760943 1 Tablet(s) PO QHS 12/04/2013 Inactive Endocet 10 mg-325 mg tablet RxNorm: 0199187 1-2 Tablet(s) PO Q4H 12/26/2013 Inactive PRN PAIN Robaxin 750 mg tablet RxNorm: 393324 2 Tablet(s) PO TID as need ed for spasm 11/07/2013 01/05/2014 Inactive gabapentin 800 mg tablet RxNorm: 863097 1 Tablet(s) PO QD 10/16/2013 04/24/2014 Inactive TAKE ONE TABLET BY MOUTH EVERY DAY Symbicort 160 mcg-4.5 mcg/actuation HFA aerosol inhaler RxNo rm: 6513013 2 Puff(s) INH BID 10/16/2013 04/24/2014 Inactive INHALE 2 PUFFS O RALLY TWO TIMES A DAY Premarin 0.9 mg tablet RxNorm: 395491 1 Tablet(s) PO QD 10/16/2013 Inactive TAKE ONE TABLET BY MOUTH EVERY DAY metformin ER 500 mg tablet,extended release 24 hr RxNorm: 86 0975 1 Tablet(s) PO QD 10/16/2013 04/24/2014 Inactive TAKE ONE TABLET BY MOUTH EVERY DAY Daliresp 500 mcg tablet RxNorm: 5658734 1 Tablet(s) PO QD 10/16/2013 04/24/2014 Inactive Robaxin 750 mg tablet RxNorm: 351686 2 Tablet(s) PO TID as need ed for spasm 10/10/2013 11/06/2013 Inactive Duragesic 100 mcg/hr transdermal patch RxNorm: 566518 2 Application TD Q48H for pain 10/09/2013 No Stop Date Active Soma 350 mg tablet RxNorm: 088002 1 Tablet(s) PO TID 09/27/201310/09 Inactive TAKE ONE TABLET BY MOUTH THREE TIMES A D AY lactulose 10 gram/15 mL oral solution RxNorm: 038458 [address](s) PO QD 09/13/2013 03/07/2015 Inactive TAKE 1 TABLESPOON BY MOUTH ONCE DAILY Duragesic 100 mcg/hr transdermal patch RxNorm: 371229 2 Application TD Q48H for pain 09/06/2013 No Stop Date Active Endocet 10 mg-325 mg tablet RxNorm: 1447187 1-2 Tablet(s) PO Q4H 09/27/2013 Inactive PRN PAIN lancets 28 gauge RxNorm: Miscellaneous As needed for blo od glucose sticks 08/24/2013 No Stop Date Active 16.2 mg-0.1037 mg-0.0194 mg tablet RxNorm: 6921593 Tablet(s) PO PRN for gas and cramping 08/24/2013 01/19/2017 Inactive TAKE TWO TABLET S BY MOUTH THREE TIMES A DAY NEEDED FOR GAS AND CRAMPING Topamax 100 mg tablet RxNorm: 686593 1 Tablet(s) PO QHS 07/31/2013 Inactive Diflucan 100 mg tablet RxNorm: 841068 1 Tablet(s) PO QD 07/27/2013 Inactive cefdinir 300 mg capsule RxNorm: 891082 1 Capsule(s) PO BID 07/26/20 13 08/08/2013 Inactive Daliresp 500 mcg tablet RxNorm: 6617977 1 Tablet(s) PO QD 07/25/2013 10/15/2013 Inactive fluoxetine 40 mg capsule RxNorm: 596431 1 Capsule(s) PO QD 07/25/20 13 01/22/2014 Inactive TAKE ONE CAPSULE BY MOUTH EV JANKI MORNING Senokot-S 8.6 mg-50 mg tablet RxNorm: 6762576 1 Tablet(s) PO BID 10/25/2013 Inactive doxycycline hyclate 100 mg capsule RxNorm: 2112816 1 Capsule(s) PO BID 06/28/2013 07/07/2013 Inactive prednisone 20 mg tablet RxNorm: 560554 1 Tablet(s) PO BID 06/28/2013 07/04/2013 Inactive Zofran 4 mg tablet RxNorm: 579710 1 Tablet(s) PO Q4H prn nausea 03/201307/05/2013 Inactive Spiriva with HandiHaler 18 mcg & inhalation capsules RxNorm: 909475 1 Capsule(s) INH QD 06/26/2013 12/18/2013 Inactive INHALE CONTENTS OF 1 CAPSULE(S) WITH HANDIHALER ONCE DAILY Synthroid 112 mcg tablet RxNorm: 317035 1 Tablet(s) PO QD TAKE ONE TABLET BY MOUTH EVERY DAY 06/19/2013 02/15/2014 Inactive fluoxetine 20 mg capsule RxNorm: 533314 1 Capsule(s) PO QD 06/19/20 13 12/18/2013 Inactive Ventolin HFA 90 mcg/actuation Aerosol Inhaler RxNorm: 5767494 2 Puff(s) INH Q4H 06/05/2013 No Stop Date Active prn Soma 350 mg tablet RxNorm: 524241 1 Tablet(s) PO TID 06/05/201307/04 Inactive TAKE ONE TABLET BY MOUTH THREE TIMES A D AY prednisone 20 mg tablet RxNorm: 338535 1 Tablet(s) PO QD 05/31/2013 0 06/06/2013 Inactive Topamax 100 mg tablet RxNorm: 233719 1 Tablet(s) PO QHS 05/22/2013 Inactive Levaquin 500 mg tablet RxNorm: 325365 1 Tablet(s) PO QD 05/03/2013 Inactive Diflucan 100 mg tablet RxNorm: 419676 1 Tablet(s) PO QD 05/03/2013 Inactive Daliresp 500 mcg tablet RxNorm: 2390948 1 Tablet(s) PO QD 05/01/2013 07/24/2013 Inactive Daliresp 500 mcg tablet RxNorm: 0639782 1 Tablet(s) PO QD 05/01/2013 04/30/2013 Inactive gabapentin 800 mg tablet RxNorm: 006232 1 Tablet(s) PO QD 04/10/2013 10/06/2013 Inactive TAKE ONE TABLET BY MOUTH EVERY DAY metformin ER 500 mg tablet,extended release 24 hr RxNorm: 86 0977 1 Tablet(s) PO QD 04/10/2013 10/06/2013 Inactive TAKE ONE TABLET BY MOUTH EVERY DAY Premarin 0.9 mg tablet RxNorm: 238308 1 Tablet(s) PO QD 04/10/2013 Inactive TAKE ONE TABLET BY MOUTH EVERY DAY Symbicort 160 mcg-4.5 mcg/actuation HFA aerosol inhaler RxNo rm: 4226756 2 Puff(s) INH BID 04/10/2013 10/06/2013 Inactive INHALE 2 PUFFS O RALLY TWO TIMES A DAY Synthroid 112 mcg tablet RxNorm: 159519 1 Tablet(s) PO QD TAKE ONE TABLET BY MOUTH EVERY DAY 04/10/2013 06/18/2013 Inactive Ventolin HFA 90 mcg/actuation Aerosol Inhaler RxNorm: 4581947 2 Puff(s) INH Q4H 04/10/2013 No Stop Date Active prn fentanyl 100 mcg/hr transdermal patch RxNorm: 603813 1 Unit Dos e TD QD 04/03/2013 05/02/2013 Inactive Endocet 10 mg-325 mg tablet RxNorm: 5038932 1-2 Tablet(s) PO Q4H 05/02/2013 Inactive PRN PAIN Topamax 100 mg tablet RxNorm: 038325 1 Tablet(s) PO QHS 03/13/2013 Inactive Reglan 10 mg tablet RxNorm: 672302 1 Tablet(s) PO QID b efore meals and at bedtime 03/13/2013 04/09/2015 Inactive fluoxetine 20 mg capsule RxNorm: 699339 1 Capsule(s) PO QD 02/28/20 13 05/27/2013 Inactive Ventolin HFA 90 mcg/actuation Aerosol Inhaler RxNorm: 8599633 2 Puff(s) INH Q4H 02/13/2013 No Stop Date Active prn fluoxetine 40 mg capsule RxNorm: 635559 1 Capsule(s) PO QD 01/31/20 13 07/24/2013 Inactive TAKE ONE CAPSULE BY MOUTH EV JANKI MORNING Soma 350 mg tablet RxNorm: 521178 1 Tablet(s) PO TID 01/20/201302/18 Inactive TAKE ONE TABLET BY MOUTH THREE TIMES A D AY Endocet 10 mg-325 mg tablet RxNorm: 7931961 1-2 Tablet(s) PO Q4H 02/06/2013 Inactive PRN PAIN MS Contin 200 mg tablet,extended release RxNorm: 020551 1 Table t(s) PO BID 01/18/2013 02/06/2013 Inactive Ventolin HFA 90 mcg/actuation Aerosol Inhaler RxNorm: 0552308 2 Puff(s) INH Q4H 01/04/2013 No Stop Date Active prn Spiriva with HandiHaler 18 mcg & inhalation capsules RxNorm: 708356 1 Capsule(s) INH QD 12/29/2012 06/25/2013 Inactive INHALE CONTENTS OF 1 CAPSULE(S) WITH HANDIHALER ONCE DAILY Spiriva with HandiHaler 18 mcg & inhalation capsules RxNorm: 280658 1 Capsule(s) INH QD 12/26/2012 12/28/2012 Inactive INHALE CONTENTS OF 1 CAPSULE(S) WITH HANDIHALER ONCE DAILY Synthroid 112 mcg tablet RxNorm: 613721 Tablet(s) PO TA KE ONE TABLET BY MOUTH EVERY DAY 12/26/2012 04/09/2013 Inactive Endocet 10 mg-325 mg tablet RxNorm: 3373066 1-2 Tablet(s) PO Q4H 01/17/2013 Inactive PRN PAIN MS Contin 200 mg tablet,extended release RxNorm: 756908 1 Table t(s) PO BID 12/21/2012 01/17/2013 Inactive fluoxetine 20 mg capsule RxNorm: 074501 1 Capsule(s) PO QD 12/06/19 13 02/26/2013 Inactive Synthroid 112 mcg tablet RxNorm: 911100 1 Tablet(s) PO QD 12/06/2012 02/12/2019 Inactive TAKE ONE TABLET BY MOUTH EVERY DAY Ventolin HFA 90 mcg/actuation Aerosol Inhaler RxNorm: 1284277 2 Puff(s) INH Q4H 12/06/2012 No Stop Date Active prn Reglan 10 mg tablet RxNorm: 708331 1 Tablet(s) PO QID b efore meals and at bedtime 11/24/2012 03/12/2013 Inactive Topamax 100 mg tablet RxNorm: 345375 1 Tablet(s) PO QHS 11/16/2012 Inactive Ventolin HFA 90 mcg/actuation Aerosol Inhaler RxNorm: 0874034 2 Puff(s) INH Q4H 11/09/2012 No Stop Date Active prn gabapentin 800 mg tablet RxNorm: 897233 1 Tablet(s) PO QD 10/27/2012 04/09/2013 Inactive TAKE ONE TABLET BY MOUTH EVERY DAY metformin ER 500 mg tablet,extended release 24 hr RxNorm: 86 0977 1 Tablet(s) PO QD 10/27/2012 04/09/2013 Inactive TAKE ONE TABLET BY MOUTH EVERY DAY Symbicort 160 mcg-4.5 mcg/actuation HFA Aerosol Inhaler RxNo rm: 7979856 2 Puff(s) INH BID 10/27/2012 04/09/2013 Inactive INHALE 2 PUFFS O RALLY TWO TIMES A DAY Premarin 0.9 mg tablet RxNorm: 925017 1 Tablet(s) PO QD 10/27/2012 Inactive TAKE ONE TABLET BY MOUTH EVERY DAY Endocet 10 mg-325 mg tablet RxNorm: 1287840 1-2 Tablet(s) PO Q4H 11/24/2012 Inactive PRN PAIN MS Contin 200 mg tablet,extended release RxNorm: 124910 1 Table t(s) PO BID 10/26/2012 11/24/2012 Inactive Soma 350 mg tablet RxNorm: 582430 1 Tablet(s) PO TID 10/04/201211/02 Inactive TAKE ONE TABLET BY MOUTH THREE TIMES A D AY Ventolin HFA 90 mcg/actuation Aerosol Inhaler RxNorm: 1119966 2 Puff(s) INH Q4H 10/03/2012 No Stop Date Active prn Daliresp 500 mcg tablet RxNorm: 0230782 1 Tablet(s) PO QD 09/28/2012 09/27/2012 Inactive Daliresp 500 mcg tablet RxNorm: 8436354 1 Tablet(s) PO QD 09/28/2012 04/25/2013 Inactive fluoxetine 20 mg capsule RxNorm: 817715 1 Capsule(s) PO QD 09/05/2012/06/2012 Inactive Topamax 50 mg tablet RxNorm: 739942 Tablet(s) PO for 1w k then 1 po q HS for 1wk then 2 po q HS 08/29/2012 09/27/2012 Inactive TAKE 1/2 TABLET BY MOUTH AT BEDTIME FOR 1 WEEK, THEN 1 TABLET AT BEDTIME FOR 1 WEEK, THEN 2 TABLETS AT BEDTIME Topamax 100 mg tablet RxNorm: 284870 1 Tablet(s) PO QHS 08/29/2012 Inactive Ventolin HFA 90 mcg/actuation Aerosol Inhaler RxNorm: 6952672 2 Puff(s) INH Q4H 08/19/2012 No Stop Date Active prn Ventolin HFA 90 mcg/actuation Aerosol Inhaler RxNorm: 6333649 2 Puff(s) INH Q4H 08/15/2012 No Stop Date Active prn Synthroid 112 mcg tablet RxNorm: 435386 1 Tablet(s) PO QD 08/10/2012 11/07/2012 Inactive TAKE ONE TABLET BY MOUTH EVERY DAY Synthroid 112 mcg tablet RxNorm: 331951 1 Tablet(s) PO QD 08/01/2012 08/09/2012 Inactive TAKE ONE TABLET BY MOUTH EVERY DAY Reglan 10 mg tablet RxNorm: 575524 1 Tablet(s) PO QID b efore meals and at bedtime 08/01/2012 11/23/2012 Inactive fluoxetine 40 mg capsule RxNorm: 081756 1 Capsule(s) PO QD 08/01/20 12 01/27/2013 Inactive TAKE ONE CAPSULE BY MOUTH EV JANKI MORNING Ventolin HFA 90 mcg/actuation Aerosol Inhaler RxNorm: 5610480 2 Puff(s) INH Q4H 08/01/2012 No Stop Date Active prn Soma 350 mg tablet RxNorm: 569131 1 Tablet(s) PO TID 07/20/201208/18 Inactive TAKE ONE TABLET BY MOUTH THREE TIMES A D AY Spiriva with HandiHaler 18 mcg & inhalation capsules RxNorm: 504098 1 Capsule(s) INH 07/01/2012 12/25/2012 Inactive INHALE CONTENTS OF 1 CAPSULE(S) WITH HANDIHALER ONCE DAILY Zithromax 250 mg Tab RxNorm: 071385 2 Tablet(s) PO QD 06/28/201206/22 Inactive MS Contin 200 mg tablet,extended release RxNorm: 066903 1 Table t(s) PO BID 06/28/2012 07/27/2012 Inactive Endocet 10 mg-325 mg tablet RxNorm: 8752826 1-2 Tablet(s) PO Q4H 07/27/2012 Inactive PRN PAIN Topamax 100 mg tablet RxNorm: 874703 1 Tablet(s) PO QHS 06/28/2012 Inactive 16.2 mg-0.1037 mg-0.0194 mg tablet RxNorm: 1444536 Tablet(s) PO PRN for gas and cramping 06/08/2012 08/23/2013 Inactive TAKE TWO TABLET S BY MOUTH THREE TIMES A DAY NEEDED FOR GAS AND CRAMPING Ventolin HFA 90 mcg/actuation Aerosol Inhaler RxNorm: 3212958 2 Puff(s) INH Q4H 05/23/2012 No Stop Date Active prn Ventolin HFA 90 mcg/actuation Aerosol Inhaler RxNorm: 3056526 2 Puff(s) INH Q4H 05/11/2012 No Stop Date Active prn Synthroid 112 mcg tablet RxNorm: 699690 1 Tablet(s) PO QD 05/09/2012 07/31/2012 Inactive TAKE ONE TABLET BY MOUTH EVERY DAY gabapentin 800 mg tablet RxNorm: 966463 1 Tablet(s) PO QD 05/09/2012 10/26/2012 Inactive TAKE ONE TABLET BY MOUTH EVERY DAY fluoxetine 40 mg capsule RxNorm: 566713 1 Capsule(s) PO QD 05/09/2007/31/2012 Inactive TAKE ONE CAPSULE BY MOUTH EV JANKI MORNING metformin ER 500 mg tablet,extended release 24 hr RxNorm: 86 0977 1 Tablet(s) PO QD 05/09/2012 10/26/2012 Inactive TAKE ONE TABLET BY MOUTH EVERY DAY Premarin 0.9 mg tablet RxNorm: 503587 1 Tablet(s) PO QD 05/09/2012 Inactive TAKE ONE TABLET BY MOUTH EVERY DAY Symbicort 160 mcg-4.5 mcg/actuation HFA Aerosol Inhaler RxNo rm: 3164195 2 Puff(s) INH BID 05/09/2012 10/26/2012 Inactive INHALE 2 PUFFS O RALLY TWO TIMES A DAY Endocet 10 mg-325 mg Tab RxNorm: 7303593 1-2 Tablet(s) PO Q4H 04/2705/26/2012 Inactive PRN PAIN MS Contin 200 mg Tab RxNorm: 524851 1 Tablet(s) PO BID 04/26/201202/2012 Inactive Ventolin HFA 90 mcg/actuation Aerosol Inhaler RxNorm: 4421018 2 Puff(s) INH Q4H 04/25/2012 05/10/2012 Inactive prn Soma 350 mg tablet RxNorm: 804117 2 Tablet(s) PO TID 04/19/201207/19 Inactive TAKE ONE TABLET BY MOUTH THREE TIMES A D AY Ventolin HFA 90 mcg/actuation Aerosol Inhaler RxNorm: 8329610 2 Puff(s) INH Q4H 04/12/2012 04/24/2012 Inactive prn Reglan 10 mg tablet RxNorm: 323676 1 Tablet(s) PO QID b efore meals and at bedtime 04/11/2012 07/31/2012 Inactive MS Contin 200 mg Tab RxNorm: 903536 1 Tablet(s) PO BID 03/30/201202/2012 Inactive Endocet 10 mg-325 mg Tab RxNorm: 8214333 1-2 Tablet(s) PO Q4H 03/3004/26/2012 Inactive PRN PAIN MS Contin 200 mg Tab RxNorm: 620826 1 Tablet(s) PO BID 03/02/201206/2012 Inactive Endocet 10 mg-325 mg Tab RxNorm: 4566657 1-2 Tablet(s) PO Q4H 03/0203/29/2012 Inactive PRN PAIN Daliresp 500 mcg tablet RxNorm: 1948003 1 Tablet(s) PO QD 03/01/2012 09/28/2012 Inactive MS Contin 200 mg Tab RxNorm: 947789 1 Tablet(s) PO BID 02/02/201208/2012 Inactive Endocet 10 mg-325 mg Tab RxNorm: 0671322 1-2 Tablet(s) PO Q4H 02/0103/01/2012 Inactive PRN PAIN fluoxetine 40 mg capsule RxNorm: 667716 1 Capsule(s) PO QD 02/02/2008/01/2012 Inactive TAKE ONE CAPSULE BY MOUTH EV JANKI MORNING Synthroid 112 mcg Tab RxNorm: 792870 1 Tablet(s) PO QD 01/18/2012 Inactive TAKE ONE TABLET BY MOUTH EVERY DAY lactulose 10 gram/15 mL oral solution RxNorm: 043489 [address]s) PO QD 01/18/2012 No Stop Date Active TAKE 1 TABLESPOON BY MOUTH ONCE DAILY Ventolin HFA 90 mcg/actuation Aerosol Inhaler RxNorm: 7058026 2 Puff(s) INH Q4H 01/18/2012 04/11/2012 Inactive prn MS Contin 200 mg Tab RxNorm: 926132 1 Tablet(s) PO BID 01/05/201210/2012 Inactive Endocet 10 mg-325 mg Tab RxNorm: 3119990 1-2 Tablet(s) PO Q4H 01/0502/01/2012 Inactive PRN PAIN ProAir HFA 90 mcg/Actuation Aerosol Inhaler RxNorm: 3778692 2 Pu ff(s) INH Q4H 12/21/2011 No Stop Date Active prn for wheezing or shortness of breath Spiriva with HandiHaler 18 mcg & inhalation Caps RxNorm: 580 261 1 Capsule(s) INH 12/21/2011 06/30/2012 Inactive INHALE CONTENTS OF 1 CAPSULE(S) WITH HANDIHALER ONCE DAILY Reglan 10 mg Tab RxNorm: 985857 1 Tablet(s) PO QID before meals and at bedtime 12/21/2011 04/10/2012 Inactive Synthroid 112 mcg Tab RxNorm: 155049 1 Tablet(s) PO QD 12/21/2011 Inactive TAKE ONE TABLET BY MOUTH EVERY DAY Endocet 10 mg-325 mg Tab RxNorm: 6352467 1-2 Tablet(s) PO Q4H 11/2512/24/2011 Inactive PRN PAIN MS Contin 200 mg Tab RxNorm: 936285 1 Tablet(s) PO BID 11/25/201112/2011 Inactive lactulose 10 gram/15 mL Oral Soln RxNorm: 444737 Milliliter(s) PO 1 No Stop Date Active TAKE 1 TABLESPOON BY MOUTH O NCE DAILY lactulose 10 gram/15 mL Oral Soln RxNorm: 537490 Milliliter(s) PO 1 12/12/2010 11/20/2011 Inactive TAKE 1 TABLESPOON BY MOUTH O NCE DAILY Premarin 0.9 mg Tab RxNorm: 028214 1 Tablet(s) PO QD 10/12/201105/08 Inactive TAKE ONE TABLET BY MOUTH EVERY DAY fluoxetine 20 mg capsule RxNorm: 912885 1 Capsule(s) PO QD 10/12/2009/05/2012 Inactive TAKE ONE CAPSULE BY MOUTH EV JANKI DAY Synthroid 112 mcg Tab RxNorm: 987162 1 Tablet(s) PO QD 10/12/2011 Inactive TAKE ONE TABLET BY MOUTH EVERY DAY metformin ER 500 mg 24 hr Tab RxNorm: 113242 1 Tablet(s) PO QD 09/2311/10/2011 Inactive TAKE ONE TABLET BY MOUTH GLYNN RY DAY Synthroid 112 mcg Tab RxNorm: 724974 1 Tablet(s) PO QD 10/12/2011 Inactive TAKE ONE TABLET BY MOUTH EVERY DAY metformin ER 500 mg 24 hr Tab RxNorm: 167056 1 Tablet(s) PO QD 09/2310/11/2011 Inactive TAKE ONE TABLET BY MOUTH GLYNN RY DAY Prevacid 30 mg Cap RxNorm: 501390 Capsule(s) PO 10/12/2011 01/25/2012 Inactive TAKE ONE CAPSULE BY MOUTH EVERY DAY Symbicort 160 mcg-4.5 mcg/actuation HFA Aerosol Inhaler RxNo rm: 8466091 2 Puff(s) INH BID 10/12/2011 05/08/2012 Inactive INHALE 2 PUFFS O RALLY TWO TIMES A DAY gabapentin 800 mg Tab RxNorm: 863570 1 Tablet(s) PO QD 10/12/2011 Inactive TAKE ONE TABLET BY MOUTH EVERY DAY MS Contin 200 mg Tab RxNorm: 589625 1 Tablet(s) PO BID 09/23/201111/2010 Inactive Endocet 10 mg-325 mg Tab RxNorm: 2848784 1-2 Tablet(s) PO Q4H 09/2310/22/2011 Inactive PRN PAIN Endocet 10 mg-325 mg Tab RxNorm: 6875806 1-2 Tablet(s) PO Q4H 08/2109/19/2011 Inactive PRN PAIN MS Contin 200 mg Tab RxNorm: 086280 1 Tablet(s) PO BID 08/21/2011 Inactive Diflucan 100 mg Tab RxNorm: 297487 1 Tablet(s) PO QD 08/10/201108/16 Inactive cefdinir 300 mg Cap RxNorm: 202302 2 Capsule(s) PO QD 08/10/201107/24 Inactive Reglan 10 mg Tab RxNorm: 459502 1 Tablet(s) PO AC & HS 07/15/2011 Inactive Endocet 10 mg-325 mg Tab RxNorm: 0926863 1-2 Tablet(s) PO Q4H 07/1508/13/2011 Inactive PRN PAIN One Touch Ultra Test strips RxNorm: Miscellaneous BID 06/11/201101/16/2014 Inactive TEST TWO TIMES A DAY lactulose 10 gram/15 mL Oral Soln RxNorm: 185067 Milliliter(s) PO 0 06/10/2011 10/11/2011 Inactive TAKE 1 TABLESPOON BY MOUTH O NCE DAILY Chantix Continuing Month Aníbal 1 mg Tab RxNorm: 680690 Tablet(s) PO 0 06/10/2011 11/02/2011 Inactive TAKE DIRECTED - PER PACK[employer] GE INSTRUCTIONS fluoxetine 40 mg Cap RxNorm: 395913 Capsule(s) PO 06/10/2011 02/02/20 12 Inactive TAKE ONE CAPSULE BY MOUTH EVERY MORNING Chantix Continuing Month Aníbal 1 mg Tab RxNorm: 350487 Ta blet(s) PO TAKE DIRECTED - PER PACKAGE INSTRUCTIONS 05/13/2011 06/09/2011 Inactive Soma 350 mg Tab RxNorm: 873157 Tablet(s) PO TAKE ON E TABLET BY MOUTH THREE TIMES A DAY 05/13/2011 04/18/2012 Inactive Chantix Continuing Month Aníbal 1 mg Tab RxNorm: 045269 Ta blet(s) PO as directed per package instructions. 04/22/2011 05/12/2011 Inactive Symbicort 160 mcg-4.5 mcg/Actuation HFA Aerosol Inhaler RxNo rm: 4278593 HFA Aerosol Inhaler INH INHALE 2 PUFFS ORALLY TWO TIMES A DAY 04/13/2011 Inactive Synthroid 112 mcg Tab RxNorm: 644277 Tablet(s) PO TAKE ONE TABLET BY MOUTH EVERY DAY 04/13/2011 10/12/2011 Inactive Premarin 0.9 mg Tab RxNorm: 199678 Tablet(s) PO TAKE ON E TABLET BY MOUTH EVERY DAY 04/13/2011 10/12/2011 Inactive gabapentin 800 mg Tab RxNorm: 399644 Tablet(s) PO TAKE ONE TABLET BY MOUTH EVERY DAY 04/13/2011 10/12/2011 Inactive Prevacid 30 mg Cap RxNorm: 282892 1 Capsule(s) PO QD 04/13/201110/11 Inactive Spiriva with HandiHaler 18 mcg & inhalation Caps RxNorm: 580 261 Capsule(s) INH INHALE CONTENTS OF 1 CAPSULE(S) WITH HANDIHALER ONCE DAILY 04/13/2011 12/21/2011 Inactive metformin ER 500 mg 24 hr Tab RxNorm: 486580 Tablet(s) PO TAKE ONE TABLET BY MOUTH EVERY DAY 04/13/2011 10/12/2011 Inactive Soma 350 mg Tab RxNorm: 311214 1 Tablet(s) PO QID 03/30/2011 02/13/20 19 Inactive fluoxetine 20 mg Cap RxNorm: 294124 Capsule(s) PO TAKE ONE CAPSULE BY MOUTH EVERY DAY 03/25/2011 10/12/2011 Inactive cefdinir 300 mg Cap RxNorm: 621864 2 Capsule(s) PO QD 03/19/201105/2011 Inactive 16.2 mg-0.1037 mg-0.0194 mg Tab RxNorm: 1396457 2 Tablet(s) PO TID PRN for gas and cramping 03/16/2011 07/13/2011 Inactive Soma 350 mg Tab RxNorm: 856447 2 Tablet(s) PO TID 03/16/2011 03/29/20 11 Inactive Chantix Starting Month Aníbal 0.5 mg (11)-1 mg (3x14) Tab s in a Dose Pack RxNorm: 328994 Tablet(s) PO as directed 03/02/2011 No Stop Date Active diazepam 10 mg Tab RxNorm: 016690 1 Tablet(s) PO BID 02/10/201101/19 Inactive Zofran 4 mg tablet RxNorm: 518644 1 Tablet(s) PO Q4H prn nausea 02/16/2011 Inactive Diflucan 100 mg Tab RxNorm: 269097 1 Tablet(s) PO QD 01/18/201101/24 Inactive Premarin 0.625 mg/g Vaginal Cream RxNorm: 835896 VAG In sert 1gm vaginally at bedtime 3 times weekly 01/18/2011 02/12/2019 Inactive loratadine 10 mg Tab RxNorm: 056660 1 Tablet(s) PO QD 12/17/201003/2012 Inactive Spiriva with HandiHaler 18 mcg & inhalation Caps RxNorm: 580 261 1 Capsule(s) INH QD 12/17/2010 04/12/2011 Inactive Diflucan 100 mg Tab RxNorm: 658446 1 Tablet(s) PO QD 12/17/201012/23 Inactive diazepam 10 mg Tab RxNorm: 394684 1 Tablet(s) PO BID and PRN 201002/12/2019 Inactive One Touch Ultra Test Strips RxNorm: InVt BID Zainab t blood sugar at least twice daily. 11/11/2010 06/11/2011 Inactive fluoxetine 40 mg Cap RxNorm: 628333 1 Capsule(s) PO QAM 11/11/2010 Inactive diazepam 10 mg Tab RxNorm: 196742 1 Tablet(s) PO BID and PRN 200911/12/2010 Inactive Bactrim DS 800 mg-160 mg Tab RxNorm: 012770 1 Tablet(s) PO BID 09/2210/15/2010 Inactive fluoxetine 20 mg Cap RxNorm: 180146 1 Capsule(s) PO QD 10/02/201008/2011 Inactive Bactrim DS 800 mg-160 mg Tab RxNorm: 757916 1 Tablet(s) PO BID 01/201010/03/2010 Inactive Zofran 4 mg Tab RxNorm: 682439 1 Tablet(s) PO Q4H prn nausea 200910/16/2010 Inactive 16.2 mg-0.1037 mg-0.0194 mg Tab RxNorm: 9316985 2 Tablet(s) PO TID PRN for gas and cramping 09/17/2010 10/21/2010 Inactive Gabapentin 800 mg Tab RxNorm: 892686 1 Tablet(s) PO QD 09/16/2010 Inactive ProAir HFA 90 mcg/Actuation Aerosol Inhaler RxNorm: 9875970 2 Puff(s) INH Q4H prn shortness of breath 09/15/2010 12/13/2010 Inactive gabapentin 800 mg Tab RxNorm: 917018 1 Tablet(s) PO QD 09/15/2010 Inactive Prevacid 30 mg Cap RxNorm: 354745 1 Capsule(s) PO QD 09/15/201004/12 Inactive loratadine 10 mg Tab RxNorm: 927504 1 Tablet(s) PO QD 09/15/201011/23 Inactive Premarin 0.9 mg Tab RxNorm: 456573 1 Tablet(s) PO QD 09/15/201004/12 Inactive Synthroid 112 mcg Tab RxNorm: 707523 1 Tablet(s) PO QD 09/15/2010 Inactive metformin ER 500 mg 24 hr Tab RxNorm: 529148 1 Tablet(s) PO QD 08/2304/12/2011 Inactive Symbicort 160 mcg-4.5 mcg/Actuation Inhalation HFA Aer osol Inhaler RxNorm: 5013399 2 Puff(s) INH BID 09/15/2010 04/12/2011 Inactive diazepam 10 mg Tab RxNorm: 011523 1 Tablet(s) PO BID and PRN 200910/13/2010 Inactive Phentermine 37.5 mg Cap RxNorm: 062565 1 Capsule(s) PO QD 09/02/2010 11/02/2011 Inactive ProAir HFA 90 mcg/Actuation Aerosol Inhaler RxNorm: 6146202 2 Puff(s) INH Q4H prn shortness of breath 08/07/2010 No Stop Date Active Premarin 0.9 mg Tab RxNorm: 317824 1 Tablet(s) PO QD 08/07/201009/14 Inactive Loratadine 10 mg Tab RxNorm: 812117 1 Tablet(s) PO QD 08/07/201008/23 Inactive Lactulose 10 gram/15 mL Oral Soln RxNorm: 778122 1 Unit Dose PO QD 08/07/2010 02/12/2019 Inactive Zofran 4 mg Tab RxNorm: 870626 1 Tablet(s) PO Q4H prn nausea 2009 No Stop Date Active Gabapentin 800 mg Tab RxNorm: 200213 1 Tablet(s) PO QD 08/07/2010 Inactive Synthroid 112 mcg Tab RxNorm: 168648 1 Tablet(s) PO QD 08/07/2010 Inactive Metformin ER 500 mg 24 hr Tab RxNorm: 971268 1 Tablet(s) PO QD 07/2309/14/2010 Inactive Vitamin D 1,000 unit Tab RxNorm: 880808 1 Tablet(s) PO TID 08/07/2002/12/2019 Inactive Symbicort 160 mcg-4.5 mcg/Actuation Inhalation HFA Aer osol Inhaler RxNorm: 9989945 2 Puff(s) INH BID 08/07/2010 09/14/2010 Inactive Prevacid 30 mg Cap RxNorm: 655280 1 Capsule(s) PO QD 08/07/201009/14 Inactive Metformin ER 500 mg 24 hr Tab RxNorm: 334319 1 Tablet(s) PO QD 06/2308/06/2010 Inactive Vitamin D 1,000 unit Tab RxNorm: 123895 1 Tablet(s) PO TID 07/14/2008/06/2010 Inactive Synthroid 112 mcg Tab RxNorm: 036237 1 Tablet(s) PO QD 07/14/2010 Inactive Lactulose 10 gram/15 mL Oral Soln RxNorm: 559756 1 Unit Dose PO QD 07/14/2010 08/06/2010 Inactive Levaquin 500 mg Tab RxNorm: 188757 1 Tablet(s) PO QD 07/14/201007/27 Inactive Premarin 0.9 mg Tab RxNorm: 601609 1 Tablet(s) PO QD 07/14/201008/06 Inactive ProAir HFA 90 mcg/Actuation Aerosol Inhaler RxNorm: 6640287 2 Puff(s) INH Q4H prn shortness of breath 07/14/2010 No Stop Date Active Prevacid 30 mg Cap RxNorm: 794292 1 Capsule(s) PO QD 07/14/201008/06 Inactive Zofran 4 mg Tab RxNorm: 976377 1 Tablet(s) PO Q4H prn nausea 2009 No Stop Date Active Symbicort 160 mcg-4.5 mcg/Actuation Inhalation HFA Aer osol Inhaler RxNorm: 8367354 2 Puff(s) INH BID 07/14/2010 08/06/2010 Inactive Loratadine 10 mg Tab RxNorm: 623958 1 Tablet(s) PO QD 07/14/201007/23 Inactive Gabapentin 800 mg Tab RxNorm: 745144 1 Tablet(s) PO QD 07/14/2010 Inactive Metformin ER 500 mg 24 hr Tab RxNorm: 983888 1 Tablet(s) PO 010 07/13/2010 Inactive Diazepam 10 mg Tab RxNorm: 352148 1 Tablet(s) PO BID and PRN 200909/06/2010 Inactive Premarin 0.9 mg Tab RxNorm: 717539 1 Tablet(s) PO QD 06/09/201007/13 Inactive Zofran 4 mg Tab RxNorm: 860712 1 Tablet(s) PO Q4H prn nausea 2009 No Stop Date Active ProAir HFA 90 mcg/Actuation Aerosol Inhaler RxNorm: 1861115 2 Puff(s) INH Q4H prn shortness of breath 06/09/2010 No Stop Date Active Gabapentin 800 mg Tab RxNorm: 453643 1 Tablet(s) PO QD 06/09/2010 Inactive Loratadine 10 mg Tab RxNorm: 525121 1 Tablet(s) PO QD 06/09/201006/23 Inactive Lactulose 10 gram/15 mL Oral Soln RxNorm: 983604 1 Unit Dose PO QD 06/09/2010 07/13/2010 Inactive Prevacid 30 mg Cap RxNorm: 312581 1 Capsule(s) PO QD 06/09/201007/13 Inactive Synthroid 112 mcg Tab RxNorm: 682643 1 Tablet(s) PO QD 06/09/2010 Inactive Symbicort 160 mcg-4.5 mcg/Actuation Inhalation HFA Aer osol Inhaler RxNorm: 9693555 2 Puff(s) INH BID 06/09/2010 07/13/2010 Inactive Omnicef 300 mg Cap RxNorm: 422350 2 Capsule(s) PO QD 05/07/201005/20 Inactive Metformin 500 mg Tab RxNorm: 689795 1 Tablet(s) PO QD 05/06/201005/22 Inactive ProAir HFA 90 mcg/Actuation Aerosol Inhaler RxNorm: 7702011 2 Puff(s) INH Q4H prn shortness of breath 05/06/2010 No Stop Date Active lactulose 10 gram/15 mL Oral Soln RxNorm: 947018 1 Unit Dose PO QD 05/06/2010 06/10/2011 Inactive Loratadine 10 mg Tab RxNorm: 599642 1 Tablet(s) PO QD 05/06/201005/22 Inactive Synthroid 112 mcg Tab RxNorm: 770574 1 Tablet(s) PO QD 05/06/2010 Inactive Symbicort 160 mcg-4.5 mcg/Actuation Inhalation HFA Aer osol Inhaler RxNorm: 2508623 2 Puff(s) INH BID 05/06/2010 06/08/2010 Inactive Gabapentin 800 mg Tab RxNorm: 959948 1 Tablet(s) PO QD 05/06/2010 Inactive 16.2 mg-0.1037 mg-0.0194 mg Tab RxNorm: 2925773 2 Tablet(s) PO TID PRN for gas and cramping 05/06/2010 05/12/2010 Inactive Zofran 4 mg Tab RxNorm: 645326 1 Tablet(s) PO Q4H prn nausea 200904/13/2010 Inactive MS Contin 60 mg Tab RxNorm: 057523 3 Tablet(s) PO BID 04/09/201004/22 Inactive Soma 350 mg Tab RxNorm: 832128 2 Tablet(s) PO TID 04/09/2010 05/08/20 Inactive Symbicort 160 mcg-4.5 mcg/Actuation Inhalation HFA Aer osol Inhaler RxNorm: 7334542 2 Puff(s) INH BID 04/08/2010 05/05/2010 Inactive Doxycycline 100 mg Cap RxNorm: 2492002 1 Capsule(s) PO BID 04/08/20 10 04/17/2010 Inactive Triamterene-Hydrochlorothiazide 37.5 mg-25 mg Cap RxNorm: 19 8316 1 Capsule(s) PO QAM 04/08/2010 09/04/2010 Inactive fluoxetine 40 mg Cap RxNorm: 047880 1 Capsule(s) PO QAM 04/08/2010 Inactive Morphine SR 120 mg multiphase 24 hr Cap RxNorm: 155381 1 Capsul e(s) PO 03/11/2010 04/07/2010 Inactive Endocet 10 mg-325 mg Tab RxNorm: 2339036 1-2 Tablet(s) PO Q4H MA N PAIN 03/11/2010 04/09/2010 Inactive Savella 100 mg Tab RxNorm: 836115 1 Tablet(s) PO BID 03/10/201004/09 Inactive Soma 350 mg Tab RxNorm: 748913 1 Tablet(s) PO TID prn spasm 010 04/09/2010 Inactive Savella 100 mg Tab RxNorm: 445029 1 Tablet(s) PO BID 02/03/201004/09 Inactive Aspirin 81 mg Tab RxNorm: 721031 1 Tablet(s) PO QD No Start Date Active Zyrtec 10 mg Tab RxNorm: 7123558 1 Tablet(s) PO QD No Start Date Active One Touch Ultra Test Strips RxNorm: Misc test at least t wice daily. No Start Date Active coenzyme Q10 200 mg capsule RxNorm: 380605 1 Capsule(s) PO QD No Star t Date Active One Touch Ultra Test Strips RxNorm: InVt BID Zainab t blood sugar at least twice daily. No Start Date 11/10/2010 Inactive Gabapentin 800 mg Tab RxNorm: 207054 1 Tablet(s) PO QD No Start Date 05/05/2010 Inactive Abilify 5 mg tablet RxNorm: 820344 1 Tablet(s) PO QD No Start Date Inactive Chantix 1 mg Tab RxNorm: 434522 1 Tablet(s) PO BID No Start Date 10/22 Inactive Ozempic 0.25 mg or 0.5 mg (2 mg/1.5 mL) subcutaneous p en injector RxNorm: 8027130 .25 Milligram(s) SQ QW No Start Date 07/04/2019 Inactive lancets 28 gauge RxNorm: Miscellaneous As needed for blo od glucose sticks No Start Date 08/23/2013 Inactive potassium chloride ER 20 mEq tablet,extended release RxNorm: 581235 2 Tablet(s) PO QD No Start Date 09/26/2018 Inactive Ventolin HFA 90 mcg/actuation Aerosol Inhaler RxNorm: 456199 1 2 Puff(s) INH Q4H prn No Start Date 01/17/2012 Inactive potassium chloride ER 20 mEq tablet,extended release RxNorm: 951270 2 Tablet(s) PO QD No Start Date 10/19/2018 Inactive Januvia 100 mg tablet RxNorm: 773877 1 Tablet(s) PO QD No Start Date 09/10/2015 Inactive Medrol (Aníbal) 4 mg Tabs in a Dose Pack RxNorm: 257812 Tablet(s) PO N o Start Date 08/09/2011 Inactive as directed Zithromax Z-Aníbal 250 mg Tab RxNorm: 957193 Tablet(s) PO No Start Date 01/25/2012 Inactive as directed vitamin B6-vitamin E-magnesium tablet RxNorm: 1 Tablet(s ) PO QHS with INH No Start Date 03/30/2018 Inactive prednisone 20 mg Tab RxNorm: 145903 1 Tablet(s) PO TID for 1wk then 1 po BID for 1wk No Start Date 01/25/2012 Inactive furosemide 40 mg tablet RxNorm: 491925 1 Tablet(s) PO QAM No Start Date 10/09/2018 Inactive Vitamin D3 1000 units Capsule RxNorm: 1 Capsule(s) PO TID No S tart Date 03/19/2015 Inactive Zofran 4 mg Tab RxNorm: 438498 1 Tablet(s) PO Q4H prn nausea No Sta rt Date 04/13/2010 Inactive Premarin 0.625 mg/g Vaginal Cream RxNorm: 798162 1 Gram (s) VAG QHS 3 times a week No Start Date 09/22/2017 Inactive oxycodone 10 mg tablet RxNorm: 0777612 1-2 Tablet(s) PO QID as n eeded for pain No Start Date 11/04/2015 Inactive Nicoderm CQ 21 mg/24 hr daily Patch RxNorm: 093093 1 Applicatio n TD QD No Start Date 08/05/2015 Inactive Topamax 50 mg tablet RxNorm: 533487 1/2 Tablet(s) PO QH S for 1wk then 1 po q HS for 1wk then 2 po q HS No Start Date 06/27/2012 Inactive Chantix Starting Month Aníbal 0.5 mg (11)-1 mg (3x14) Tab s in a Dose Pack RxNorm: 026918 Tablet(s) PO as directed No Start Date 03/01/2011 Inactive Trulicity 0.75 mg/0.5 mL subcutaneous pen injector RxNorm: 1 524630 Milliliter(s) SQ No Start Date 07/04/2019 Inactive Medrol (Aníbal) 4 mg Tabs in a Dose Pack RxNorm: 766601 Tablet(s) PO N o Start Date 01/25/2012 Inactive as directed Duragesic 100 mcg/hr Transderm Patch RxNorm: 173235 2 A pplication TD Q48H for pain No Start Date 09/05/2013 Inactive Premarin 0.9 mg Tab RxNorm: 150273 1 Tablet(s) PO QD No Start Date Inactive Zithromax Z-Aníbal 250 mg Tab RxNorm: 061128 Tablet(s) PO as direc chinmay No Start Date 01/25/2012 Inactive ondansetron 8 mg disintegrating tablet RxNorm: 612109 1 Tablet(s) PO Q6H as needed No Start Date 10/10/2018 Inactive oxycodone 15 mg tablet RxNorm: 3703869 1 Tablet(s) PO QID as nee ded for pain No Start Date 03/05/2019 Inactive ProAir HFA 90 mcg/Actuation Aerosol Inhaler RxNorm: 647932 2 Puff(s) INH Q4H prn for wheezing or shortness of breath No Start Date 12/21/2011 Inactive pravastatin 40 mg tablet RxNorm: 284597 1/2 Tablet(s) PO QOD No Sta rt Date 04/09/2015 Inactive ipratropium-albuterol 0.5 mg-3 mg(2.5 mg base)/3 mL ne bulization soln RxNorm: 4935352 1 Unit Dose INH Q4H as needed No Start Date 09/09/2016 Inactive furosemide 40 mg tablet RxNorm: 854847 1 Tablet(s) PO QAM as ne eded No Start Date 09/24/2019 Inactive Vitamin D2 oral RxNorm: 4018 oral No Start Date 03/18/2015 Inacti ve pravastatin 40 mg tablet RxNorm: 487846 1/2 Tablet(s) PO QD No Star t Date 04/09/2015 Inactive ondansetron HCl 4 mg tablet RxNorm: 552248 1 Tablet(s) PO Q4H as needed for nausea and vomiting No Start Date 04/07/2016 Inactive furosemide 40 mg tablet RxNorm: 487674 2 Tablet(s) PO QAM No Start Date 09/26/2018 Inactive gabapentin 800 mg tablet RxNorm: 862123 1/2 Tablet(s) PO BID No Sta rt Date 06/21/2017 Inactive gabapentin 800 mg tablet RxNorm: 621483 1/2 Tablet(s) PO BID No Sta rt Date 07/05/2017 Inactive ProAir HFA 90 mcg/Actuation Aerosol Inhaler RxNorm: 6534510 2 Puff(s) INH Q4H prn shortness of breath No Start Date 05/05/2010 Inactive scopolamine 1 mg over 3 days transdermal patch RxNorm: 47364 2 1 Application TD behind ear. Take off after three days No Start Date 10/10/2018 Inactive Metformin 500 mg Tab RxNorm: 686115 1 Tablet(s) PO QD No Start Date 0 05/05/2010 Inactive MS Contin 200 mg Tab RxNorm: 680007 1 Tablet(s) PO BID No Start Date 08/20/2011 Inactive Belladonna-Phenobarbital 48 mg tablet,extended release RxNor m: 2 Tablet(s) PO TID No Start Date 06/04/2016 Inactive Synthroid 112 mcg Tab RxNorm: 436039 1 Tablet(s) PO QD No Start Date 05/05/2010 Inactive Zegerid 40 mg-1.1 gram Cap RxNorm: 490948 1 Capsule(s) PO QD No Sta rt Date 01/25/2012 Inactive Premarin 0.625 mg/g Vaginal Cream RxNorm: 592800 VAG In sert 1gm vaginally at bedtime 3 times weekly No Start Date 01/17/2011 Inactive potassium chloride ER 20 mEq tablet,extended release RxNorm: 855234 1 Tablet(s) PO QD No Start Date 04/24/2019 Inactive methocarbamol 750 mg tablet RxNorm: 891776 2 Tablet(s) PO TID as needed for muscle spasm No Start Date 07/08/2014 Inactive Biaxin XL Aníbal 500 mg 24 hr Tab RxNorm: 649375 Tablet(s) PO as d irected No Start Date 04/24/2013 Inactive Vitamin D3 1,000 unit tablet RxNorm: 855269 3 Tablet(s) PO QD No St art Date 06/01/2017 Inactive Morphine SR 120 mg multiphase 24 hr Cap RxNorm: 098004 1 Capsul e(s) PO BID No Start Date 04/09/2010 Inactive Silvadene 1 % topical cream RxNorm: 469727 1 Application TOP BI D to burn area No Start Date 01/31/2017 Inactive Prednisone 20 mg Tab RxNorm: 623733 1 Tablet(s) PO TID for 3days then BID for 4days No Start Date 01/25/2012 Inactive gabapentin 600 mg tablet RxNorm: 563178 1 Tablet(s) PO BID No Start Date 01/21/2015 Inactive topiramate 50 mg tablet RxNorm: 500536 1 Tablet(s) PO QHS No Start Date 03/30/2018 Inactive Januvia 100 mg tablet RxNorm: 430841 1/2 Tablet(s) PO QD No Start D ate 12/25/2015 Inactive Diazepam 10 mg Tab RxNorm: 816882 1 Tablet(s) PO BID and PRN No Sta rt Date 06/08/2010 Inactive Medication Administered No Medication Administered data Immunizations Vaccine Codes Date Status Influenza CVX: 141 09/28/2012 Pneumovax Unknown 09/28/2012 Influenza (Adult) CVX: 141 09/02/2010 Results No Results data Procedures Procedure Codes Date THER/PROPH/DIAG INJ SC/IM CPT-4: 62759 07/10/2019 METHYLPREDNISOLONE INJECTION CPT-4: J2930 07/10/2019 URINALYSIS NONAUTO W/O SCOPE CPT-4: 61005 09/06/2018 URINE CULTURE/ COLONY COUNT CPT-4: 54433 09/06/2018 DRAIN/INJECT JOINT/BURSA CPT-4: 51403 04/29/2017 TRIAMCINOLONE ACET INJ NOS CPT-4: J3301 04/29/2017 DEXAMETHASONE SODIUM PHOS CPT-4: J1100 04/29/2017 INFLUENZA ASSAY W/OPTIC CPT-4: 88384 12/01/2016 RESPIRATORY CULTURE & STAIN CPT-4: 05129 07/09/2016 TB INTRADERMAL TEST CPT-4: 97349 04/21/2016 DRAIN/INJECT JOINT/BURSA CPT-4: 78173 11/07/2013 METHYLPREDNISOLONE 40 MG INJ CPT-4: J1030 11/07/2013 TRIAMCINOLONE ACET INJ NOS CPT-4: J3301 11/07/2013 DRAIN/INJECT JOINT/BURSA CPT-4: 67610 08/08/2013 METHYLPREDNISOLONE 40 MG INJ CPT-4: J1030 08/08/2013 TRIAMCINOLONE ACET INJ NOS CPT-4: J3301 08/08/2013 FLU VACCINE 3 YRS & > IM UP 64 CPT-4: 87940 2 PNEUMOCOCCAL VACC 23 ADITYA IM CPT-4: 34910 09/28/2012 IMMUNIZATION ADMIN CPT-4: 16364 09/28/2012 IMMUNIZATION ADMIN EACH ADD CPT-4: 18807 09/28/2012 FLU VACCINE 3 YRS & > IM UP 64 CPT-4: 61955 0 IMMUNIZATION ADMIN CPT-4: 70291 09/02/2010 METHYLPREDNISOLONE INJECTION CPT-4: J2930 05/07/2010 THER/PROPH/DIAG INJ SC/IM CPT-4: 70199 05/07/2010 Vital Signs Date Vital 11/29/2019 Blood [...] 1: 122/78 Code: 8480-6 BMI: 29.5 Code: 05668-1 Heart Rate 1: 76 bpm Height: 5'4" Respiratory Rate: 20 bpm SpO2: 96% Tempera ture: 37.0 (C) / 98.6 (F) Weight: 172 lbs 01/25/2019 Blood Pressure 1: 132/80 Code: 8480-6 BMI: 29.7 Code: 17955-8 Heart Rate 1: 84 bpm Height: 5'4" Respiratory Rate: 22 bpm SpO2: 98% Tempera ture: 36.9 (C) / 98.4 (F) Weight: 173 lbs 01/03/2019 Blood Pressure 1: 116/70 Code: 8480-6 BMI: 29.5 Code: 36795-5 Heart Rate 1: 92 bpm Height: 5'4" Respiratory Rate: 24 bpm SpO2: 98% Tempera ture: 37.2 (C) / 98.9 (F) Weight: 172 lbs 11/21/2018 Blood Pressure 1: 146/82 Code: 8480-6 BMI: 28.2 Code: 38729-4 Heart Rate 1: 88 bpm Height: 5'4" Respiratory Rate: 22 bpm SpO2: 97% Tempera ture: 36.9 (C) / 98.4 (F) Weight: 164 lbs 10/27/2018 Blood Pressure 1: 122/70 Code: 8480-6 BMI: 27.6 Code: 77113-3 Heart Rate 1: 88 bpm Height: 5'4" Respiratory Rate: 20 bpm SpO2: 96% Tempera ture: 36.8 (C) / 98.3 (F) Weight: 161 lbs 10/18/2018 Blood Pressure 1: 126/70 Code: 8480-6 BMI: 28.3 Code: 67265-8 Heart Rate 1: 76 bpm Height: 5'4" Respiratory Rate: 20 bpm SpO2: 95% Tempera ture: 37.0 (C) / 98.6 (F) Weight: 165 lbs 09/27/2018 Blood Pressure 1: 124/78 Code: 8480-6 BMI: 27.1 Code: 14897-4 Heart Rate 1: 88 bpm Height: 5'4" Respiratory Rate: 20 bpm SpO2: 98% Tempera ture: 36.4 (C) / 97.6 (F) Weight: 158 lbs 09/14/2018 Blood Pressure 1: 140/72 Code: 8480-6 BMI: 26.1 Code: 12644-0 Heart Rate 1: 100 bpm Height: 5'4" Respiratory Rate: 20 bpm SpO2: 97% Tempera ture: 36.9 (C) / 98.4 (F) Weight: 152 lbs 09/06/2018 Blood Pressure 1: 156/82 Code: 8480-6 BMI: 26.3 Code: 58458-2 Heart Rate 1: 100 bpm Height: 5'4" Respiratory Rate: 28 bpm SpO2: 95% Tempera ture: 37.2 (C) / 98.9 (F) Weight: 153 lbs 08/16/2018 Blood Pressure 1: 130/78 Code: 8480-6 Heart Rate 1: 87 bpm Respiratory Rate: 24 bpm SpO2: 94% Temperature: 36.9 (C) / 98.4 (F) We ight: 147 lbs 8 oz 07/07/2018 Blood Pressure 1: 116/78 Code: 8480-6 BMI: 22.7 Code: 56345-5 Heart Rate 1: 88 bpm Height: 5'4" Respiratory Rate: 22 bpm SpO2: 98% Tempera ture: 36.5 (C) / 97.7 (F) Weight: 132 lbs 05/31/2018 Blood Pressure 1: 128/78 Code: 8480-6 BMI: 22.3 Code: 87543-2 Heart Rate 1: 92 bpm Height: 5'4" Respiratory Rate: 26 bpm SpO2: 94% Tempera ture: 36.7 (C) / 98.1 (F) Weight: 130 lbs 03/31/2018 Blood Pressure 1: 136/78 Code: 8480-6 BMI: 21.5 Code: 27639-0 Heart Rate 1: 76 bpm Height: 5'4" Respiratory Rate: 24 bpm SpO2: 95% Tempera ture: 36.8 (C) / 98.3 (F) Weight: 125 lbs 01/26/2018 Blood Pressure 1: 142/64 Code: 8480-6 BMI: 20.6 Code: 02060-8 Heart Rate 1: 90 bpm Height: 5'4" Respiratory Rate: 24 bpm SpO2: 92% Tempera ture: 36.3 (C) / 97.3 (F) Weight: 120 lbs 10/26/2017 Blood Pressure 1: 124/70 Code: 8480-6 BMI: 20.3 Code: 35209-8 Heart Rate 1: 76 bpm Height: 5'4" Respiratory Rate: 22 bpm SpO2: 94% Tempera ture: 36.7 (C) / 98.1 (F) Weight: 118 lbs 09/23/2017 Blood Pressure 1: 106/70 Code: 8480-6 BMI: 19.2 Code: 08635-5 Heart Rate 1: 76 bpm Height: 5'4" Respiratory Rate: 20 bpm SpO2: 94% Tempera ture: 36.8 (C) / 98.3 (F) Weight: 112 lbs 08/12/2017 Blood Pressure 1: 116/68 Code: 8480-6 BMI: 20.1 Code: 20235-9 Heart Rate 1: 80 bpm Height: 5'4" Respiratory Rate: 22 bpm SpO2: 95% Tempera ture: 36.8 (C) / 98.2 (F) Weight: 117 lbs 07/06/2017 Blood Pressure 1: 136/78 Code: 8480-6 BMI: 20.6 Code: 40516-7 Heart Rate 1: 76 bpm Height: 5'4" Respiratory Rate: 24 bpm SpO2: 96% Tempera ture: 36.8 (C) / 98.2 (F) Weight: 120 lbs 06/02/2017 Blood Pressure 1: 112/70 Code: 8480-6 Heart Rate 1: 92 bpm Height: 5'4" Respiratory Rate: 24 bpm SpO2: 95% Temperature: 37.0 (C) / 98.6 (F) Weight: 04/29/2017 Blood Pressure 1: 94/52 Code: 8480-6 BMI: 19.6 C ode: 09797-7 Heart Rate 1: 84 bpm Height: 5'4" [...] 92/58 Code: 8480-6 BMI: 19.2 C ode: 29727-4 Heart Rate 1: 84 bpm Height: 5'4" Respiratory Rate: 26 bpm SpO2: 95% Tempera ture: 36.7 (C) / 98.0 (F) Weight: 112 lbs 12/01/2016 Blood Pressure 1: 114/70 Code: 8480-6 BMI: 19.2 Code: 28915-8 Heart Rate 1: 96 bpm Height: 5'4" Respiratory Rate: 28 bpm SpO2: 93% Tempera ture: 38.3 (C) / 101.0 (F) Weight: 112 lbs 10/27/2016 Blood Pressure 1: 126/66 Code: 8480-6 BMI: 19.6 Code: 09796-7 Heart Rate 1: 92 bpm Height: 5'4" Respiratory Rate: 28 bpm SpO2: 90% Tempera ture: 36.8 (C) / 98.3 (F) Weight: 114 lbs 09/09/2016 Blood Pressure 1: 126/74 Code: 8480-6 Heart Rate 1: 104 bpm Height: 5'4" Respiratory Rate: 32 bpm SpO2: 88% Temperature: 37 .2 (C) / 99.0 (F) 08/26/2016 Blood Pressure 1: 134/82 Code: 8480-6 BMI: 22.0 Code: 20344-5 Heart Rate 1: 84 bpm Height: 5'4" Respiratory Rate: 24 bpm SpO2: 94% Tempera ture: 36.8 (C) / 98.3 (F) Weight: 128 lbs 05/21/2016 Blood Pressure 1: 142/80 Code: 8480-6 BMI: 21.6 Code: 62980-9 Heart Rate 1: 104 bpm Height: 5'4" Respiratory Rate: 22 bpm SpO2: 93% Tempera ture: 36.0 (C) / 96.8 (F) Weight: 126 lbs 03/25/2016 Blood Pressure 1: 126/62 Code: 8480-6 Heart Rate 1: 88 bpm Respiratory Rate: 20 bpm SpO2: 92% Temperature: 36.8 (C) / 98.3 (F) We ight: 130 lbs 01/23/2016 Blood Pressure 1: 146/82 Code: 8480-6 BMI: 24.1 Code: 88299-4 Heart Rate 1: 92 bpm Height: 5'3" Respiratory Rate: 22 bpm Temperature: 37 .1 (C) / 98.8 (F) Weight: 136 lbs 12/26/2015 Blood Pressure 1: 142/78 Code: 8480-6 BMI: 24.6 Code: 11421-8 Heart Rate 1: 78 bpm Height: 5'3" Respiratory Rate: 20 bpm Temperature: 36 .7 (C) / 98.1 (F) Weight: 139 lbs 12/03/2015 Blood Pressure 1: 126/60 Code: 8480-6 BMI: 24.6 Code: 43578-8 Heart Rate 1: 100 bpm Height: 5'3" Respiratory Rate: 28 bpm Temperature: 37 .6 (C) / 99.6 (F) Weight: 139 lbs 09/10/2015 Blood Pressure 1: 124/64 Code: 8480-6 BMI: 23.7 Code: 75486-2 Heart Rate 1: 88 bpm Height: 5'3" Respiratory Rate: 24 bpm SpO2: 95% Tempera ture: 36.4 (C) / 97.6 (F) Weight: 134 lbs 08/06/2015 Blood Pressure 1: 114/76 Code: 8480-6 BMI: 23.2 Code: 68858-3 Heart Rate 1: 88 bpm Height: 5'3" Respiratory Rate: 22 bpm Temperature: 36 .6 (C) / 97.9 (F) Weight: 131 lbs 07/18/2015 Blood Pressure 1: 144/78 Code: 8480-6 BMI: 23.7 Code: 37573-5 Heart Rate 1: 84 bpm Height: 5'3" Respiratory Rate: 20 bpm Temperature: 37 .2 (C) / 99.0 (F) Weight: 134 lbs 04/10/2015 Blood Pressure 1: 110/64 Code: 8480-6 Heart Rate 1: 80 bpm Height: Respiratory Rate: 20 bpm Temperature: 37.1 (C) / 98.8 (F) Weight: 03/05/2015 Blood Pressure 1: 136/80 Code: 8480-6 BMI: 23.9 Code: 57288-3 Heart Rate 1: 76 bpm Height: 5'3" Respiratory Rate: 24 bpm Temperature: 37 .0 (C) / 98.6 (F) Weight: 135 lbs 01/30/2015 Blood Pressure 1: 142/80 Code: 8480-6 BMI: 23.0 Code: 31744-7 Heart Rate 1: 96 bpm Height: 5'3" Respiratory Rate: 22 bpm Temperature: 36 .2 (C) / 97.2 (F) Weight: 130 lbs 01/02/2015 Blood Pressure 1: 124/70 Code: 8480-6 BMI: 23.4 Code: 35944-8 Heart Rate 1: 84 bpm Height: 5'3" Respiratory Rate: 24 bpm SpO2: 95% Tempera ture: 36.9 (C) / 98.5 (F) Weight: 132 lbs 10/03/2014 Blood Pressure 1: 106/68 Code: 8480-6 BMI: 22.5 Code: 59183-0 Heart Rate 1: 88 bpm Height: 5'3" Respiratory Rate: 24 bpm Temperature: 37 .0 (C) / 98.6 (F) Weight: 127 lbs 08/27/2014 Blood Pressure 1: 124/68 Code: 8480-6 BMI: 21.1 Code: 13012-4 Heart Rate 1: 88 bpm Height: 5'3" [...] Weight: 121 lbs 01/30/2014 Blood Pressure 1: 128/ Code: 8480-6 Heart Rate 1: 90 bpm [...] 1: 120/70 Code: 8480-6 BMI: 19.2 Code: 71661-5 Heart Rate 1: 70 bpm Height: 5'4" Respiratory Rate: 20 bpm Temperature: 36 .9 (C) / 98.4 (F) Weight: 112 lbs 06/28/2013 Blood Pressure 1: 102/68 Code: 8480-6 BMI: 19.6 Code: 08067-1 Heart Rate 1: 76 bpm Height: 5'4" Respiratory Rate: 20 bpm Temperature: 36 .8 (C) / 98.2 (F) Weight: 114 lbs 05/31/2013 Blood Pressure 1: 106/70 Code: 8480-6 BMI: 18.9 Code: 14689-3 Heart Rate 1: 100 bpm Height: 5'4" Respiratory Rate: 20 bpm Temperature: 36 .4 (C) / 97.6 (F) Weight: 110 lbs 05/03/2013 Blood Pressure 1: 126/70 Code: 8480-6 BMI: 19.1 Code: 73806-6 Heart Rate 1: 88 bpm Height: 5'4" Respiratory Rate: 20 bpm Temperature: 37 .1 (C) / 98.8 (F) Weight: 111 lbs 04/25/2013 Blood Pressure 1: 114/68 Code: 8480-6 BMI: 19.4 Code: 03639-4 Heart Rate 1: 92 bpm Height: 5'4" Respiratory Rate: 24 bpm SpO2: 96% Tempera ture: 37.7 (C) / 99.8 (F) Weight: 113 lbs 03/08/2013 Blood Pressure 1: 94/68 Code: 8480-6 BMI: 21.3 C ode: 30264-2 Heart Rate 1: 88 bpm Height: 5'4" Respiratory Rate: 24 bpm Temperature: 37 .0 (C) / 98.6 (F) Weight: 124 lbs 02/07/2013 Blood Pressure 1: 106/64 Code: 8480-6 BMI: 21.8 Code: 24575-0 Heart Rate 1: 84 bpm Height: 5'4" Respiratory Rate: 22 bpm Temperature: 36 .8 (C) / 98.2 (F) Weight: 127 lbs 01/10/2013 Blood Pressure 1: 122/68 Code: 8480-6 BMI: 21.6 Code: 47673-8 Heart Rate 1: 94 bpm Height: 5'4" SpO2: 94% Temperature: 36.7 (C) / 98.1 (F) Weight: 126 lbs 09/28/2012 Blood Pressure 1: 124/78 Code: 8480-6 BMI: 24.9 Code: 63455-8 Heart Rate 1: 92 bpm Height: 5'4" Respiratory Rate: 20 bpm Temperature: 36 .7 (C) / 98.1 (F) Weight: 145 lbs 06/28/2012 Blood Pressure 1: 134/80 Code: 8480-6 BMI: 24.9 Code: 53034-5 Heart Rate 1: 76 bpm Height: 5'4" Respiratory Rate: 20 bpm Temperature: 36 .8 (C) / 98.2 (F) Weight: 145 lbs 05/03/2012 Blood Pressure 1: 108/62 Code: 8480-6 BMI: 25.6 Code: 00215-6 Heart Rate 1: 88 bpm Height: 5'4" Temperature: 36.2 (C) / 97.2 (F) Weight: 149 lbs 03/01/2012 Blood Pressure 1: 124/66 Code: 8480-6 BMI: 25.1 Code: 71609-8 Heart Rate 1: 76 bpm Height: 5'4" Respiratory Rate: 20 bpm Temperature: 36 .6 (C) / 97.9 (F) Weight: 146 lbs 01/26/2012 Blood Pressure 1: 118/82 Code: 8480-6 BMI: 25.1 Code: 46293-1 Heart Rate 1: 74 bpm Height: 5'4" Temperature: 36.8 (C) / 98.2 (F) Weight: 146 lbs 11/03/2011 Blood Pressure 1: 126/80 Code: 8480-6 BMI: 27.3 Code: 49917-0 Heart Rate 1: 72 bpm Height: 5'4" [...] [email or web address] Encounters Encounter Performer Location Codes Date ([id number]) OFFICE/OUTPATIENT VISIT EST Diagnosis: Chronic pain syndrome[ICD10: G89.4] Diagnosis: Localized edema[ICD10: R60.0] Diagnosis: Chronic obstructive pulmonary disease, unspecified[ICD10: J44.9] Diagnosis: Other fatigue[ICD10: R53.83] Diagnosis: Muscle weakness (generalized)[ICD10: M62.81] Diagnosis: Spinal stenosis, lumbar region with neurogenic claudication[ICD10: M48.062] Vika RENTERIA [employer] CPT-4: 56270 11/29/2019 ([id number]) OFFICE/OUTPATIENT VISIT EST Diagnosis: Chronic pain syndrome[ICD10: G89.4] Diagnosis: Lumbar degenerative disc disease[ICD10: M51.36] Diagnosis: Muscle spasm[ICD10: M62.838] Diagnosis: Spinal stenosis, lumbar region with neurogenic claudication[ICD10: M48.062] Diagnosis: Spondylosis without myelopathy or radiculopathy, 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] Vika RENTERIA [employer] CPT-4: 87389 10/30/2019 ([id number]) OFFICE/OUTPATIENT VISIT EST Diagnosis: Chronic pain syndrome[ICD10: G89.4] Vika RENTERIA [employer] CPT-4: 64650 10/25/2019 ([id number]) OFFICE/OUTPATIENT VISIT EST Diagnosis: Epigastric pain[ICD10: R10.13] Diagnosis: Nausea[ICD10: R11.0] Diagnosis: Chronic obstructive pulmonary disease, unspecified[ICD10: J44.9] Vika RENTERIA DO [facility] CPT-4: 47319 07/26/2019 ([id number]) OFFICE/OUTPATIENT VISIT EST Diagnosis: Chronic obstructive pulmonary disease with (acute) exacerbation[ICD10: J44.1] Diagnosis: Chronic respiratory failure with hypoxia[ICD10: J96.11] Diagnosis: Other fatigue[ICD10: R53.83] Diagnosis: Edema, unspecified[ICD10: R60.9] Vika RENTERIA [email or web address] [facility] CPT-4: 80079 07/19/2019 ([id number]) OFFICE/OUTPATIENT VISIT EST Diagnosis: Chronic obstructive pulmonary disease with acute lower respiratory infection[ICD10: J44.0] Vika RENTERIA DO [facility] CPT-4: 68644 07/10/2019 ([id number]) OFFICE/OUTPATIENT VISIT EST Diagnosis: Type 2 diabetes mellitus with hyperglycemia[ICD10: E11.65] Diagnosis: Other infective otitis externa, left ear[ICD10: H60.392] Vika RENTERIA [email or web address] [facility] CPT-4: 10638 06/05/2019 ([id number]) OFFICE/OUTPATIENT VISIT EST Diagnosis: Chronic obstructive pulmonary disease with (acute) exacerbation[ICD10: J44.1] Diagnosis: Type 2 diabetes mellitus with hyperglycemia[ICD10: E11.65] Vika RENTERIA [email or web address] [facility] [facility] CPT-4: 23973 05/03/2019 ([id number]) OFFICE/OUTPATIENT VISIT EST Diagnosis: Type 2 diabetes mellitus with hyperglycemia[ICD10: E11.65] Diagnosis: Abnormal weight gain[ICD10: R63.5] Diagnosis: Chronic obstructive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
--- OUTSIDE RECORDS SUMMARY | 2020-04-24 23:26 | XMS REPORT | CCD ---
Author Author Yana Renteria D.O. Organization [facility] Address [address] [place] [address] Phone Care Team Providers Care Mail Processing Clerk Name Role Phone Vika Renteria D.O., PP Unavailable CCM Unavailable Summary Purpose Interface Exchange Insurance Providers Payer name Policy type / Coverage type Covered libertarian ID Effective Begin Date Effective End Date [employer] [facility] Medicaid [id number] 2018 U nknown Family History Family History data not found Social History Social History Element Codes Description Effective Dates Marital status Unknown 06/28/[address]: 39251087 Currently smokes tobacco 05/2013 Allergies, Adverse Reactions, [...] mg tablets in a dose pack RxNorm: 913733 6 Tablet(s) Oral QD --then as directed 11/30/2019 12/05/2019 Active MS Contin 200 mg tablet,extended release RxNorm: 188666 1 Tablet(s) Oral two times a day 11/29/2019 12/29/2019 Active cyclobenzaprine 10 mg tablet RxNorm: 903553 TAKE ONE TA BLET BY MOUTH THREE TIMES A DAY NEEDED 11/21/2019 No Stop Date Active MS Contin 200 mg tablet,extended release RxNorm: 523822 1 Tablet(s) Oral two times a day replaces 100mg dose 11/03/2019 11/02/2019 Inactive MS Contin 200 mg tablet,extended release RxNorm: 792024 1 Tablet(s) Oral two times a day replaces 100mg dose 11/03/2019 11/29/2019 Inactive ferrous sulfate 325 mg (65 mg iron) tablet RxNorm: 041059 1 Tab let(s) Oral QD 10/30/2019 No Stop Date Active MS Contin 100 mg tablet,extended release RxNorm: 870483 1 Table t(s) Oral QD 10/30/2019 10/29/2019 Inactive MS Contin 100 mg tablet,extended release RxNorm: 654755 1 Table t(s) Oral QD 10/30/2019 11/02/2019 Inactive Relistor 150 mg tablet RxNorm: 0977299 TAKE THREE TABLETS BY BENOIT TH DAILY 10/25/2019 No Stop Date Active pantoprazole 40 mg tablet,delayed release RxNorm: 252878 1 Tabl et(s) Oral QD 10/25/2019 No Stop Date Active metformin 500 mg tablet RxNorm: 743592 1 Tablet(s) Oral QD 10/25/20 No Stop Date Active levothyroxine 25 mcg tablet RxNorm: 303768 1 Tablet(s) Oral QAM 02/201912/23/2019 Active Minipress 2 mg capsule RxNorm: 292552 1 Capsule(s) Oral QAM and 3 at bedtime 10/25/2019 No Stop Date Active Lancets, Super Thin RxNorm: 1 Unit Dose Miscellaneous QD 9 11/27/2020 Active Cymbalta 60 mg capsule,delayed release RxNorm: 157536 1 Capsule (s) Oral QAM 10/25/2019 No Stop Date Active Cymbalta 30 mg capsule,delayed release RxNorm: 220960 1 Capsule (s) Oral QAM 10/25/2019 No Stop Date Active oxycodone 15 mg tablet RxNorm: 5240843 1 Tablet(s) Oral four times a day as needed for pain 10/25/2019 11/28/2019 Inactive levothyroxine 25 mcg tablet RxNorm: 755128 1 Tablet(s) Oral QAM 02/201910/24/2019 Inactive MS Contin 100 mg tablet,extended release RxNorm: 891950 1 Tablet(s) Oral two times a day replaces fentanyl 10/25/2019 10/25/2019 Inactive Premarin 0.45 mg tablet RxNorm: 430966 TAKE ONE TABLET BY MOUTH DAILY 10/24/2019 No Stop Date Active Duragesic 100 mcg/hr transdermal patch RxNorm: 610368 2 Application TD Q48H for pain 10/18/2019 10/24/2019 Inactive gabapentin 300 mg capsule RxNorm: 884862 TAKE ONE CAPSULE BY MO [facility] TWICE A DAY 10/16/2019 No Stop Date Active cyclobenzaprine 10 mg tablet RxNorm: 433809 TAKE ONE TA BLET BY MOUTH THREE TIMES A DAY NEEDED 09/27/2019 11/20/2019 Inactive ProAir HFA 90 mcg/actuation aerosol inhaler RxNorm: 759154 INHALE ONE PUFF BY MOUTH EVERY 4 HOURS FOR WHEEZING OR FOR SHORTNESS OF BREATH 09/25/2019 No Stop Date Active furosemide 40 mg tablet RxNorm: 824050 1 Tablet(s) Oral QAM as needed 09/25/2019 09/25/2019 Inactive Relistor 150 mg tablet RxNorm: 7597976 TAKE THREE TABLETS BY BENOIT TH DAILY 09/25/2019 10/24/2019 Inactive oxycodone 15 mg tablet RxNorm: 9697791 1 Tablet(s) PO QID as nee ded for pain 09/21/2019 10/24/2019 Inactive Duragesic 100 mcg/hr transdermal patch RxNorm: 956193 2 Application TD Q48H for pain 09/19/2019 10/17/2019 Inactive Daliresp 500 mcg tablet RxNorm: 5897312 1 Tablet(s) Oral QD 019 03/08/2020 Active potassium chloride ER 20 mEq tablet,extended release RxNorm: 498456 TAKE ONE TABLET BY MOUTH DAILY 07/25/2019 01/20/2020 Active Relistor 150 mg tablet RxNorm: 0326280 TAKE THREE TABLETS BY BENOIT TH DAILY 07/25/2019 07/30/2019 Inactive cyclobenzaprine 10 mg tablet RxNorm: 800495 TAKE ONE TA BLET BY MOUTH THREE TIMES A DAY NEEDED 07/25/2019 09/22/2019 Inactive fluoxetine 40 mg capsule RxNorm: 070189 TAKE ONE CAPSULE BY BENOIT TH EVERY MORNING 07/11/2019 10/24/2019 Inactive Medrol (Aníbal) 4 mg tablets in a dose pack RxNorm: 331496 6 Tablet(s) PO QD --then as directed 07/10/2019 07/15/2019 Inactive omeprazole 40 mg capsule,delayed release RxNorm: 834326 1 Capsule(s) PO QD for stomach TAKE ONE CAPSULE BY MOUTH DAILY 07/10/2019 10/24/2019 Inactive Augmentin 875 mg-125 mg tablet RxNorm: 798347 1 Tablet(s) PO BID 07/16/2019 Inactive Trulicity 0.75 mg/0.5 mL subcutaneous pen injector RxNorm: 1 306497 0.75 Milliliter(s) SQ weekly 07/05/2019 10/24/2019 Inactive Compazine 10 mg tablet RxNorm: 554951 TAKE ONE TABLET B Y MOUTH FOUR TIMES A DAY NEEDED FOR NAUSEA 06/20/2019 07/19/2019 Inactive ProAir HFA 90 mcg/actuation aerosol inhaler RxNorm: 421570 INHALE ONE PUFF BY MOUTH EVERY 4 HOURS FOR WHEEZING OR FOR SHORTNESS OF BREATH 06/20/2019 06/23/2019 Inactive Daliresp 500 mcg tablet RxNorm: 6487889 TAKE ONE TABLET BY MOUTH DAILY 06/12/2019 09/10/2019 Inactive tnjwpxeq-qmdqesehx-wtvrbkjua 3.5 mg/mL-10,000 unit/mL- 1 % ear solution RxNorm: 007907 4 Drop(s) otic (ear) TID to left ear 06/05/2019 10/24/2019 Inac tive furosemide 40 mg tablet RxNorm: 777164 TAKE ONE TABLET BY MOUTH EVERY MORNING 05/26/2019 07/09/2019 Inactive Duragesic 100 mcg/hr transdermal patch RxNorm: 638670 2 Application TD Q48H for pain 05/16/2019 06/14/2019 Inactive oxycodone 15 mg tablet RxNorm: 5827169 1 Tablet(s) PO QID as nee ded for pain 05/10/2019 09/20/2019 Inactive doxycycline hyclate 100 mg capsule RxNorm: 6620992 1 Capsule(s) PO BID 05/03/2019 05/12/2019 Inactive prednisone 20 mg tablet RxNorm: 121558 1 Tablet(s) PO T ID for 3 days then 1 po BID for 3 days then one daily for 3 days 05/03/2019 07/11/2019 Inactiv e Ozempic 0.25 mg or 0.5 mg (2 mg/1.5 mL) subcutaneous p en injector RxNorm: 1121232 0.5 Milligram(s) SQ QW 05/03/2019 07/09/2019 Inactive fluconazole 100 mg tablet RxNorm: 640511 1 Tablet(s) PO QD 05/03/20 19 05/07/2019 Inactive Premarin 0.45 mg tablet RxNorm: 765411 TAKE ONE TABLET BY MOUTH DAILY 05/03/2019 10/23/2019 Inactive potassium chloride ER 20 mEq tablet,extended release RxNorm: 467178 1 Tablet(s) PO QD 04/27/2019 07/25/2019 Inactive potassium chloride ER 20 mEq tablet,extended release RxNorm: 010839 1 Tablet(s) PO QD 04/25/2019 04/26/2019 Inactive Compazine 10 mg tablet RxNorm: 232669 1 Tablet(s) PO QID as nee ded for nausea 04/25/2019 05/04/2019 Inactive ProAir HFA 90 mcg/actuation aerosol inhaler RxNorm: 993599 INHALE ONE PUFF BY MOUTH EVERY 4 HOURS FOR WHEEZING OR FOR SHORTNESS OF BREATH 04/12/2019 06/10/2019 Inactive Medrol (Aníbal) 4 mg tablets in a dose pack RxNorm: 143519 6 Tablet(s) PO QD --then as directed 04/11/2019 04/16/2019 Inactive Symbicort 160 mcg-4.5 mcg/actuation HFA aerosol inhaler RxNo rm: 1954825 2 Puff(s) INH BID 04/10/2019 10/06/2019 Inactive levothyroxine 50 mcg tablet RxNorm: 693950 1 Tablet(s) PO QD 201810/24/2019 Inactive gabapentin 300 mg capsule RxNorm: 084590 1 Capsule(s) PO BID 201810/02/2019 Inactive Symbicort 160 mcg-4.5 mcg/actuation HFA aerosol inhaler RxNo rm: 2968118 2 Puff(s) INH BID 04/06/2019 04/09/2019 Inactive oxycodone 15 mg tablet RxNorm: 1895357 1 Tablet(s) PO QID as nee ded for pain 04/05/2019 05/09/2019 Inactive levothyroxine 50 mcg tablet RxNorm: 498144 1 Tablet(s) PO QD 201804/09/2019 Inactive furosemide 40 mg tablet RxNorm: 943020 TAKE ONE TABLET BY MOUTH EVERY MORNING 03/21/2019 04/19/2019 Inactive levothyroxine 50 mcg tablet RxNorm: 012153 TAKE ONE TABLET BY M OUTH DAILY 03/21/2019 03/27/2019 Inactive Duragesic 100 mcg/hr transdermal patch RxNorm: 399501 2 Application TD Q48H for pain 03/13/2019 04/11/2019 Inactive oxycodone 15 mg tablet RxNorm: 5565116 1 Tablet(s) PO QID as nee ded for pain 03/06/2019 04/04/2019 Inactive Relistor 150 mg tablet RxNorm: 6469863 3 Tablet(s) PO QD 02/28/2019 0 05/28/2019 Inactive cyclobenzaprine 10 mg tablet RxNorm: 601868 1 Tablet(s) PO TID as needed 02/28/2019 05/28/2019 Inactive phentermine 37.5 mg tablet RxNorm: 873287 1 Tablet(s) PO QAM 201803/15/2019 Inactive Duragesic 100 mcg/hr transdermal patch RxNorm: 902459 2 Application TD Q48H for pain 02/09/2019 03/10/2019 Inactive Daliresp 500 mcg tablet RxNorm: 2371287 TAKE ONE TABLET BY MOUTH DAILY 01/31/2019 05/30/2019 Inactive Premarin 0.45 mg tablet RxNorm: 376002 1 Tablet(s) PO QD 01/31/2019 0 04/30/2019 Inactive fluoxetine 40 mg capsule RxNorm: 993900 Capsule(s) TAKE ONE CAPSULE BY MOUTH EVERY MORNING 01/31/2019 04/30/2019 Inactive levothyroxine 50 mcg tablet RxNorm: 328447 1 Tablet(s) PO QD 201804/10/2019 Inactive follow up in 3 weeks levothyroxine 50 mcg tablet RxNorm: 393425 1 Tablet(s) PO QD 201801/25/2019 Inactive follow up in 3 weeks potassium chloride ER 20 mEq tablet,extended release RxNorm: 588470 2 Tablet(s) PO BID 01/23/2019 02/14/2019 Inactive Synthroid 50 mcg tablet RxNorm: 251723 TAKE ONE TABLET BY MOUTH DAILY 01/16/2019 10/24/2019 Inactive potassium chloride ER 20 mEq tablet,extended release RxNorm: 350214 2 Tablet(s) PO BID 01/04/2019 01/22/2019 Inactive ProAir HFA 90 mcg/actuation aerosol inhaler RxNorm: 961768 INHALE ONE PUFF BY MOUTH EVERY 4 HOURS FOR WHEEZING OR SHORTNESS OF BREATH 01/04/201902/20 Inactive Request already responded to by other me ans (e.g. phone or fax) ProAir HFA 90 mcg/actuation aerosol inhaler RxNorm: 9359339 INHALE ONE PUFF BY MOUTH EVERY 4 HOURS FOR WHEEZING OR SHORTNESS OF BREATH 01/02/201912/23 Inactive gabapentin 300 mg capsule RxNorm: 817127 TAKE ONE CAPSULE BY MO UT TWICE A DAY 12/30/2018 04/06/2019 Inactive furosemide 40 mg tablet RxNorm: 557653 1 Tablet(s) PO QAM 12/26/2018 02/23/2019 Inactive Compazine 10 mg tablet RxNorm: 812200 1 Tablet(s) PO QID as nee ded for nausea 12/07/2018 12/16/2018 Inactive metolazone 2.5 mg tablet RxNorm: 773619 TAKE ONE TABLET BY MOUT H EVERY MORNING 12/05/2018 01/03/2019 Inactive metformin ER 500 mg tablet,extended release 24 hr RxNorm: 86 0975 TAKE ONE TABLET BY MOUTH DAILY 12/05/2018 04/10/2019 Inactive Synthroid 50 mcg tablet RxNorm: 413596 1 Tablet(s) PO QD 11/25/2018 0 01/03/2019 Inactive DC any other synthroid strengths. Should be 50mcg only cyclobenzaprine 10 mg tablet RxNorm: 540002 TAKE ONE TA BLET BY MOUTH THREE TIMES A DAY NEEDED 11/09/2018 02/06/2019 Inactive metolazone 2.5 mg tablet RxNorm: 849174 1 Tablet(s) PO QAM repl aces 5mg dose 11/02/2018 12/01/2018 Inactive potassium chloride ER 20 mEq tablet,extended release RxNorm: 489423 2 Tablet(s) PO QD 2018 01/02/2019 Inactive Compazine 10 mg tablet RxNorm: 904492 1 Tablet(s) PO QID as nee ded for nausea 10/18/2018 12/07/2018 Inactive furosemide 40 mg tablet RxNorm: 265937 1 Tablet(s) PO QAM 10/12/2018 12/10/2018 Inactive ondansetron 8 mg disintegrating tablet RxNorm: 834031 1 Tablet(s) PO Q6H as needed 10/11/2018 10/17/2018 Inactive scopolamine 1 mg over 3 days transdermal patch RxNorm: 59654 2 1 Application TD behind ear. Take off after three days 10/11/2018 01/02/2019 Inactive furosemide 40 mg tablet RxNorm: 081334 1 Tablet(s) PO QAM 10/10/2018 12/26/2018 Inactive metolazone 5 mg tablet RxNorm: 113522 1 Tablet(s) PO QAM 10/06/2018 1 01/03/2018 Inactive metolazone 5 mg tablet RxNorm: 013060 1 Tablet(s) PO QAM 10/06/2018 1 12/05/2017 Inactive Xtampza ER 36 mg capsule sprinkle RxNorm: 1006397 1 Capsule(s) P O BID 10/05/2018 01/02/2019 Inactive Xtampza ER 36 mg capsule sprinkle RxNorm: 5812883 1 Capsule(s) P O BID 10/05/2018 02/12/2019 Inactive omeprazole 40 mg capsule,delayed release RxNorm: 793268 TAKE ONE CAPSULE BY MOUTH DAILY 10/03/2018 12/31/2018 Inactive Duragesic 100 mcg/hr transdermal patch RxNorm: 483085 2 Application TD Q48H for pain 09/30/2018 10/29/2018 Inactive Synthroid 50 mcg tablet RxNorm: 959101 1 Tablet(s) PO QD 09/29/2018 0 11/25/2018 Inactive DC any other synthroid strengths. Should be 50mcg only Synthroid 50 mcg tablet RxNorm: 509860 1 Tablet(s) PO QD 09/29/2018 1 11/28/2017 Inactive furosemide 40 mg tablet RxNorm: 253581 2 Tablet(s) PO Q AM for 1 week then every other day for 2 weeks 09/27/2018 10/12/2018 Inactive fluoxetine 40 mg capsule RxNorm: 793564 2 Capsule(s) PO QD 09/27/20 18 10/17/2018 Inactive potassium chloride ER 20 mEq tablet,extended release RxNorm: 681843 2 Tablet(s) PO QD for 1 week then every other day for 2 weeks 09/27/2018 2018 Inactive ProAir HFA 90 mcg/actuation aerosol inhaler RxNorm: 9825630 INHALE ONE PUFF BY MOUTH EVERY 4 HOURS FOR WHEEZING OR SHORTNESS OF BREATH 09/26/201811/23 Inactive Synthroid 75 mcg tablet RxNorm: 246630 1 Tablet(s) PO QD 09/09/2018 1 Inactive Synthroid 75 mcg tablet RxNorm: 213460 1 Tablet(s) PO QD 09/09/2018 1 11/28/2017 Inactive furosemide 40 mg tablet RxNorm: 104428 1 Tablet(s) PO QD 09/06/2018 1 Inactive potassium chloride ER 20 mEq tablet,extended release RxNorm: 416555 1 Tablet(s) PO QD 09/06/2018 09/19/2018 Inactive Duragesic 100 mcg/hr transdermal patch RxNorm: 539247 2 Application TD Q48H for pain 08/30/2018 09/28/2018 Inactive gabapentin 300 mg capsule RxNorm: 190184 TAKE ONE CAPSULE BY MO UTH TWICE A DAY 08/23/2018 12/20/2018 Inactive Daliresp 500 mcg tablet RxNorm: 0387466 TAKE ONE TABLET BY MOUTH DAILY 08/23/2018 01/19/2019 Inactive Pulmicort 1 mg/2 mL suspension for nebulization RxNorm: 6168 19 USE ONE VIAL VIA NEBULIZER BY MOUTH TWICE A DAY 08/23/2018 07/11/2019 Inactive Synthroid 88 mcg tablet RxNorm: 223401 1 Tablet(s) PO QD 08/19/2018 1 Inactive Medrol (Aníbal) 4 mg tablets in a dose pack RxNorm: 220752 Tablet(s) PO take as directed 08/16/2018 09/05/2018 Inactive Relistor 150 mg tablet RxNorm: 0490912 3 Tablet(s) PO QD 08/16/2018 1 Inactive Zithromax Z-Aníbal 250 mg tablet RxNorm: 160405 Tablet(s) PO take as directed 08/16/2018 09/05/2018 Inactive cyclobenzaprine 10 mg tablet RxNorm: 375605 1 Tablet(s) PO TID as needed 08/16/2018 11/08/2018 Inactive Synthroid 88 mcg tablet RxNorm: 825439 1 Tablet(s) PO Q D NEEDS UPDATED LABS BEFORE FURTHER REFILLS 08/08/2018 08/19/2018 Inactive Premarin 0.45 mg tablet RxNorm: 708009 1 Tablet(s) PO QD 08/03/2018 0 01/31/2019 Inactive fluoxetine 20 mg capsule RxNorm: 149262 TAKE ONE CAPSULE BY BENOIT TH DAILY 08/03/2018 09/26/2018 Inactive Xtampza ER 36 mg capsule sprinkle RxNorm: 1491822 1 Capsule(s) P O BID 08/03/2018 09/01/2018 Inactive metformin ER 500 mg tablet,extended release 24 hr RxNorm: 86 0975 1 Tablet(s) PO QD 08/03/2018 10/31/2018 Inactive Symbicort 160 mcg-4.5 mcg/actuation HFA aerosol inhaler RxNo rm: 8465738 2 Puff(s) INH BID 08/03/2018 01/29/2019 Inactive Duragesic 100 mcg/hr transdermal patch RxNorm: 024450 2 Application TD Q48H for pain 07/29/2018 08/27/2018 Inactive ProAir HFA 90 mcg/actuation aerosol inhaler RxNorm: 184513 INHALE TWO PUFFS BY MOUTH EVERY 4 HOURS FOR WHEEZING OR SHORTNESS OF BREATH 07/27/201802/2018 Inactive Relistor 150 mg tablet RxNorm: 1852777 3 Tablet(s) PO QD 07/20/2018 0 08/15/2018 Inactive metformin ER 500 mg tablet,extended release 24 hr RxNorm: 86 0975 TAKE ONE TABLET BY MOUTH DAILY 07/08/2018 08/02/2018 Inactive fluoxetine 40 mg capsule RxNorm: 144072 TAKE ONE CAPSULE BY BENOIT TH EVERY MORNING 07/08/2018 10/05/2018 Inactive Xtampza ER 18 mg capsule sprinkle RxNorm: 1654614 1 Capsule(s) P O BID 07/08/2018 08/02/2018 Inactive Relistor 150 mg tablet RxNorm: 8529290 3 Tablet(s) PO QD 07/08/2018 0 07/12/2018 Inactive Synthroid 88 mcg tablet RxNorm: 012538 1 Tablet(s) PO Q D NEEDS UPDATED LABS BEFORE FURTHER REFILLS 06/23/2018 07/07/2018 Inactive fluoxetine 40 mg capsule RxNorm: 321021 TAKE ONE CAPSULE BY BENOIT TH EVERY MORNING 06/15/2018 09/26/2018 Inactive orphenadrine citrate ER 100 mg tablet,extended release RxNor m: 178237 TAKE ONE TABLET BY MOUTH TWICE A DAY FOR MUSCLE SPASM 06/15/2018 08/15/2018 Renu ctive Duragesic 100 mcg/hr transdermal patch RxNorm: 850863 2 Application TD Q48H for pain 05/30/2018 06/28/2018 Inactive ProAir HFA 90 mcg/actuation aerosol inhaler RxNorm: 786637 INHALE TWO PUFFS BY MOUTH EVERY 4 HOURS FOR WHEEZING OR SHORTNESS OF BREATH 05/19/201803/2018 Inactive Chantix Continuing Month Box 1 mg tablet RxNorm: 827397 TAKE ONE TABLET BY MOUTH TWICE A DAY 05/19/2018 08/15/2018 Inactive oxycodone 10 mg tablet RxNorm: 4290392 1-2 Tablet(s) PO QID as n eeded for pain 05/19/2018 07/07/2018 Inactive gabapentin 300 mg capsule RxNorm: 415535 TAKE ONE CAPSULE BY MO [facility] TWICE A DAY 05/18/2018 07/16/2018 Inactive ProAir HFA 90 mcg/actuation aerosol inhaler RxNorm: 855315 INHALE TWO PUFFS BY MOUTH EVERY 4 HOURS FOR WHEEZING OR SHORTNESS OF BREATH 05/04/201804/23 Inactive Augmentin 500 mg-125 mg tablet RxNorm: 751541 1 Tablet(s) PO BID 05/03/2018 Inactive oxycodone 10 mg tablet RxNorm: 0231194 1-2 Tablet(s) PO QID as n eeded for pain 04/21/2018 05/18/2018 Inactive Synthroid 88 mcg tablet RxNorm: 852618 1 Tablet(s) PO QD 04/15/2018 0 08/08/2018 Inactive Symbicort 160 mcg-4.5 mcg/actuation HFA aerosol inhaler RxNo rm: 0925507 2 Puff(s) INH BID 04/15/2018 04/10/2019 Inactive Premarin 0.45 mg tablet RxNorm: 753185 1 Tablet(s) PO QD 04/15/2018 0 08/03/2018 Inactive ProAir HFA 90 mcg/actuation aerosol inhaler RxNorm: 351427 2 Puff(s) INH Q4H prn for wheezing or shortness of breath 04/15/2018 05/03/2018 Inactive metformin ER 500 mg tablet,extended release 24 hr RxNorm: 86 0975 1 Tablet(s) PO QD 04/11/2018 07/07/2018 Inactive omeprazole 40 mg capsule,delayed release RxNorm: 895286 TAKE ONE CAPSULE BY MOUTH DAILY 04/10/2018 06/08/2018 Inactive Synthroid 88 mcg tablet RxNorm: 618499 1 Tablet(s) PO QD 04/04/2018 0 04/14/2018 Inactive Synthroid 88 mcg tablet RxNorm: 961502 1 Tablet(s) PO QD 04/04/2018 0 04/03/2018 Inactive orphenadrine citrate ER 100 mg tablet,extended release RxNor m: 842222 1 Tablet(s) PO BID for muscle spasm 04/04/2018 05/03/2018 Inactive metformin ER 500 mg tablet,extended release 24 hr RxNorm: 86 0975 1 Tablet(s) PO QD NEEDS UPDATED LABS 03/31/2018 04/11/2018 Inactive doxycycline hyclate 100 mg capsule RxNorm: 2658372 1 Capsule(s) PO BID 03/31/2018 04/09/2018 Inactive prednisone 20 mg tablet RxNorm: 655745 3 Tablet(s) PO T ID for 3 days then 1 po BID for 3 days then one daily for 3 days 03/31/2018 07/06/2018 Inactiv e Chantix Continuing Month Box 1 mg tablet RxNorm: 795740 TAKE ONE TABLET BY MOUTH TWICE A DAY 03/25/2018 03/30/2018 Inactive oxycodone 10 mg tablet RxNorm: 2827950 1-2 Tablet(s) PO QID as n eeded for pain 03/21/2018 04/20/2018 Inactive Daliresp 500 mcg tablet RxNorm: 3941769 1 Tablet(s) PO QD 03/15/2018 08/22/2018 Inactive metformin ER 500 mg tablet,extended release 24 hr RxNorm: 86 0975 1 Tablet(s) PO QD NEEDS UPDATED LABS 03/14/2018 03/31/2018 Inactive nystatin 100,000 unit/mL oral suspension RxNorm: 236301 5 Chio liter(s) PO QID 03/02/2018 03/15/2018 Inactive nystatin 100,000 unit/mL oral suspension RxNorm: 216546 5 Chio liter(s) PO QID 03/02/2018 03/01/2018 Inactive oxycodone 10 mg tablet RxNorm: 6392733 1-2 Tablet(s) PO QID as n eeded for pain 02/16/2018 03/20/2018 Inactive fluoxetine 20 mg capsule RxNorm: 594444 1 Capsule(s) PO QD 02/15/20 18 08/02/2018 Inactive metformin ER 500 mg tablet,extended release 24 hr RxNorm: 86 0975 1 Tablet(s) PO QD Needs updated labs 02/14/2018 03/14/2018 Inactive cefdinir 300 mg capsule RxNorm: 370378 1 Capsule(s) PO BID 01/27/20 18 02/04/2018 Inactive orphenadrine citrate ER 100 mg tablet,extended release RxNor m: 528341 1 Tablet(s) PO BID for muscle spasm 01/26/2018 04/04/2018 Inactive gabapentin 300 mg capsule RxNorm: 936301 1 Capsule(s) PO BID 201704/17/2018 Inactive oxycodone 10 mg tablet RxNorm: 8172481 1-2 Tablet(s) PO QID as n eeded for pain 01/17/2018 02/15/2018 Inactive Duragesic 100 mcg/hr transdermal patch RxNorm: 489135 2 Application TD Q48H for pain 01/17/2018 02/15/2018 Inactive gabapentin 300 mg capsule RxNorm: 333965 TAKE ONE CAPSULE BY MO UTH TWICE A DAY 12/20/2017 01/18/2018 Inactive fluoxetine 40 mg capsule RxNorm: 614996 TAKE ONE CAPSULE BY BENOIT TH EVERY MORNING 12/15/2017 03/14/2018 Inactive OneTouch Ultra Test strips RxNorm: TEST DAILY 11/04/2017 02/01/2018 Inactive gabapentin 300 mg capsule RxNorm: 645134 1 Capsule(s) P O TID replaces BID dosing 10/26/2017 02/22/2018 Inactive oxycodone 10 mg tablet RxNorm: 2756407 1-2 Tablet(s) PO QID as n eeded for pain 10/18/2017 01/16/2018 Inactive Duragesic 100 mcg/hr transdermal patch RxNorm: 181011 2 Application TD Q48H for pain 10/18/2017 11/16/2017 Inactive gabapentin 300 mg capsule RxNorm: 436904 1 Capsule(s) PO BID 201610/25/2017 Inactive Abilify 5 mg tablet RxNorm: 780904 1 Tablet(s) PO QAM 09/23/201702/2017 Inactive gabapentin 300 mg capsule RxNorm: 082477 1 Capsule(s) PO BID 201610/17/2017 Inactive oxycodone 10 mg tablet RxNorm: 6532719 1-2 Tablet(s) PO QID as n eeded for pain 09/15/2017 10/17/2017 Inactive Duragesic 100 mcg/hr transdermal patch RxNorm: 332677 2 Application TD Q48H for pain 09/15/2017 10/14/2017 Inactive Duragesic 100 mcg/hr transdermal patch RxNorm: 679350 2 Application TD Q48H for pain 09/15/2017 10/24/2019 Inactive oxycodone 10 mg tablet RxNorm: 7144446 1-2 Tablet(s) PO QID as n eeded for pain 09/15/2017 08/15/2018 Inactive Daliresp 500 mcg tablet RxNorm: 5485637 1 Tablet(s) PO QD 09/06/2017 03/15/2018 Inactive Ventolin HFA 90 mcg/actuation aerosol inhaler RxNorm: 786543 2 Puff(s) INH Q4H as needed 09/02/2017 05/19/2018 Inactive oxycodone 10 mg tablet RxNorm: 3711426 1-2 Tablet(s) PO QID as n eeded for pain 08/17/2017 09/14/2017 Inactive Duragesic 100 mcg/hr transdermal patch RxNorm: 782790 2 Application TD Q48H for pain 08/17/2017 09/14/2017 Inactive fluoxetine 40 mg capsule RxNorm: 343991 Capsule(s) TAKE ONE CAPSULE BY MOUTH EVERY MORNING 08/17/2017 12/14/2017 Inactive Pulmicort 1 mg/2 mL suspension for nebulization RxNorm: 6168 19 1 Unit Dose INH BID Dx: COPD (J44.9) 08/16/2017 08/22/2018 Inactive gabapentin 300 mg capsule RxNorm: 692119 1 Capsule(s) PO QHS 201610/18/2017 Inactive fluoxetine 20 mg capsule RxNorm: 624416 1 Capsule(s) PO QD 08/12/20 17 02/14/2018 Inactive Abilify 2 mg tablet RxNorm: 342472 1 Tablet(s) PO QD TA KE ONE TABLET BY MOUTH DAILY 08/12/2017 10/25/2017 Inactive metformin ER 500 mg tablet,extended release 24 hr RxNorm: 86 0975 1 Tablet(s) PO QD 08/10/2017 02/14/2018 Inactive Synthroid 112 mcg tablet RxNorm: 718948 1 Tablet(s) PO QD 08/10/2017 04/15/2018 Inactive oxycodone 10 mg tablet RxNorm: 5009866 1-2 Tablet(s) PO QID as n eeded for pain 07/19/2017 08/16/2017 Inactive Duragesic 100 mcg/hr transdermal patch RxNorm: 985279 2 Application TD Q48H for pain 07/19/2017 08/16/2017 Inactive Ventolin HFA 90 mcg/actuation aerosol inhaler RxNorm: 251991 2 Puff(s) INH Q4H as needed 07/12/2017 09/02/2017 Inactive Abilify 2 mg tablet RxNorm: 565970 1 Tablet(s) PO QD TA KE ONE TABLET BY MOUTH DAILY 07/06/2017 08/11/2017 Inactive gabapentin 800 mg tablet RxNorm: 520452 1 Tablet(s) PO TID 06/22/2007/05/2017 Inactive Chantix Starting Month Box 0.5 mg (11)-1 mg (42) table ts in dose pack RxNorm: 804598 TAKE BY MOUTH INSTRUCTED - PER PACKAGE INSTRUCTIONS 06/0707/04/2017 Inactive Ventolin HFA 90 mcg/actuation aerosol inhaler RxNorm: 032992 2 Puff(s) INH Q4H as needed 05/26/2017 07/12/2017 Inactive Duragesic 100 mcg/hr transdermal patch RxNorm: 742784 2 Application TD Q48H for pain 05/19/2017 06/17/2017 Inactive oxycodone 10 mg tablet RxNorm: 4670577 1-2 Tablet(s) PO QID as n eeded for pain 05/19/2017 07/18/2017 Inactive Abilify 2 mg tablet RxNorm: 466258 TAKE ONE TABLET BY MOUTH DAILY 0 05/10/2017 07/05/2017 Inactive Synthroid 112 mcg tablet RxNorm: 818801 1 Tablet(s) PO QD 05/06/2017 08/10/2017 Inactive metformin ER 500 mg tablet,extended release 24 hr RxNorm: 86 0975 1 Tablet(s) PO QD 05/06/2017 08/10/2017 Inactive Topamax 100 mg tablet RxNorm: 569614 1 Tablet(s) PO QHS 05/06/2017 Inactive Premarin 0.45 mg tablet RxNorm: 532100 1 Tablet(s) PO QD 05/06/2017 0 04/15/2018 Inactive orphenadrine citrate ER 100 mg tablet,extended release RxNor m: 445443 1 Tablet(s) PO TID for muscle spasm--replaces methocarbamol 04/29/2017 Inactive oxycodone 10 mg tablet RxNorm: 6932570 1-2 Tablet(s) PO QID as n eeded for pain 04/21/2017 05/18/2017 Inactive Duragesic 100 mcg/hr transdermal patch RxNorm: 999020 2 Application TD Q48H for pain 04/21/2017 05/18/2017 Inactive fluoxetine 40 mg capsule RxNorm: 778024 Capsule(s) TAKE ONE CAPSULE BY MOUTH EVERY MORNING 04/20/2017 08/17/2017 Inactive Ventolin HFA 90 mcg/actuation aerosol inhaler RxNorm: 391727 2 Puff(s) INH Q4H as needed 04/05/2017 05/26/2017 Inactive Symbicort 160 mcg-4.5 mcg/actuation HFA aerosol inhaler RxNo rm: 6739851 2 Puff(s) INH BID 03/30/2017 04/15/2018 Inactive Spiriva with HandiHaler 18 mcg and inhalation capsules RxNor m: 725246 1 Capsule(s) INH QD USING HANDIHALER 03/30/2017 02/12/2019 Inactive Duragesic 100 mcg/hr transdermal patch RxNorm: 264245 2 Application TD Q48H for pain 03/18/2017 04/16/2017 Inactive oxycodone 10 mg tablet RxNorm: 0652808 1-2 Tablet(s) PO QID as n eeded for pain 03/18/2017 04/20/2017 Inactive metformin ER 500 mg tablet,extended release 24 hr RxNorm: 86 0975 Tablet(s) TAKE ONE TABLET BY MOUTH DAILY 03/01/2017 05/06/2017 Inactive Premarin 0.45 mg tablet RxNorm: 155830 Tablet(s) TAKE ONE TABLE T BY MOUTH DAILY 03/01/2017 05/06/2017 Inactive Synthroid 112 mcg tablet RxNorm: 871066 Tablet(s) TAKE ONE TABLET BY MOUTH DAILY 03/01/2017 05/06/2017 Inactive Daliresp 500 mcg tablet RxNorm: 6691484 1 Tablet(s) PO QD 03/01/2017 09/06/2017 Inactive 16.2 mg-0.1037 mg-0.0194 mg tablet RxNorm: 9734797 Tablet(s) PO PRN for gas and cramping 02/23/2017 04/28/2017 Inactive TAKE TWO TABLET S BY MOUTH THREE TIMES A DAY NEEDED FOR GAS AND CRAMPING gabapentin 800 mg tablet RxNorm: 013070 1 Tablet(s) PO TID repl aces 600mg 02/23/2017 04/28/2017 Inactive Duragesic 100 mcg/hr transdermal patch RxNorm: 055561 2 Application TD Q48H for pain 02/17/2017 03/17/2017 Inactive fluoxetine 20 mg capsule RxNorm: 121991 1 Capsule(s) PO QD 02/18/2008/12/2017 Inactive oxycodone 20 mg tablet RxNorm: 1459194 1 Tablet(s) PO QID as nee ded for pain 02/17/2017 03/17/2017 Inactive Ventolin HFA 90 mcg/actuation aerosol inhaler RxNorm: 678241 INHALE TWO PUFFS BY MOUTH EVERY 4 HOURS NEEDED 02/15/2017 04/05/2017 Inactive Silvadene 1 % topical cream RxNorm: 745802 1 Application TOP BI D to burn area 02/01/2017 09/22/2017 Inactive Topamax 100 mg tablet RxNorm: 426481 TAKE ONE TABLET BY MOUTH EVERY NIGHT AT BEDTIME 01/29/2017 05/06/2017 Inactive Chantix Starting Month Box 0.5 mg (11)-1 mg (42) table ts in dose pack RxNorm: 337506 Tablet(s) PO as directed 01/29/2017 06/01/2017 Inactive Abilify 2 mg tablet RxNorm: 078348 TAKE ONE TABLET BY MOUTH DAILY 0 01/26/2017 04/25/2017 Inactive Chantix Starting Month Box 0.5 mg (11)-1 mg (42) table ts in dose pack RxNorm: 121281 Tablet(s) PO as directed 01/20/2017 01/28/2017 Inactive gabapentin 600 mg tablet RxNorm: 917250 1 Tablet(s) PO TID 01/21/20 17 02/22/2017 Inactive Chantix Continuing Month Box 1 mg tablet RxNorm: 828540 1 Table t(s) PO BID 12/31/2016 06/01/2017 Inactive Spiriva with HandiHaler 18 mcg and inhalation capsules RxNor m: 739782 INHALE THE ENTIRE CONTENTS OF 1 CAPSULE ONCE A DAY USING HANDIHALER 12/31/201607/2017 Inactive Synthroid 112 mcg tablet RxNorm: 629673 TAKE ONE TABLET BY MOUT H DAILY 12/30/2016 03/01/2017 Inactive metformin ER 500 mg tablet,extended release 24 hr RxNorm: 86 0975 TAKE ONE TABLET BY MOUTH DAILY 12/30/2016 03/01/2017 Inactive Premarin 0.45 mg tablet RxNorm: 734833 TAKE ONE TABLET BY MOUTH DAILY 12/30/2016 03/01/2017 Inactive omeprazole 40 mg capsule,delayed release RxNorm: 788906 TAKE ONE CAPSULE BY MOUTH DAILY 12/30/2016 01/25/2018 Inactive Ventolin HFA 90 mcg/actuation aerosol inhaler RxNorm: 597538 INHALE TWO PUFFS BY MOUTH EVERY 4 HOURS NEEDED 12/28/2016 02/13/2017 Inactive fluoxetine 40 mg capsule RxNorm: 694957 TAKE ONE CAPSULE BY BENOIT TH EVERY MORNING 12/15/2016 04/20/2017 Inactive Chantix Continuing Month Box 1 mg tablet RxNorm: 124117 TAKE ONE TABLET BY MOUTH TWICE A DAY 12/04/2016 12/31/2016 Inactive doxycycline hyclate 100 mg capsule RxNorm: 3180670 1 Capsule(s) PO BID 12/01/2016 12/07/2016 Inactive Levaquin 750 mg tablet RxNorm: 789239 1 Tablet(s) PO QD 12/01/2016 Inactive Abilify 2 mg tablet RxNorm: 330348 TAKE ONE TABLET BY MOUTH DAILY 0 11/25/2016 11/30/2016 Inactive Ventolin HFA 90 mcg/actuation aerosol inhaler RxNorm: 763114 INHALE TWO PUFFS BY MOUTH EVERY 4 HOURS NEEDED 11/02/2016 12/19/2016 Inactive Chantix Continuing Month Box 1 mg tablet RxNorm: 869166 Tablet(s) PO as directed 10/30/2016 12/03/2016 Inactive Symbicort 160 mcg-4.5 mcg/actuation HFA aerosol inhaler RxNo rm: 5678210 INHALE TWO PUFFS TWO TIMES A DAY 10/30/2016 03/30/2017 Inactive Abilify 2 mg tablet RxNorm: 472004 1 Tablet(s) PO QD 10/27/201611/24 Inactive amoxicillin 500 mg capsule RxNorm: 379755 1 Capsule(s) PO TID 10/1410/23/2016 Inactive amoxicillin 500 mg capsule RxNorm: 000791 1 Capsule(s) PO TID 10/1410/13/2016 Inactive Synthroid 112 mcg tablet RxNorm: 697758 TAKE ONE TABLET BY MOUT H DAILY 09/28/2016 12/29/2016 Inactive Topamax 100 mg tablet RxNorm: 951469 TAKE ONE TABLET BY MOUTH EVERY NIGHT AT BEDTIME 09/28/2016 01/28/2017 Inactive Premarin 0.45 mg tablet RxNorm: 429256 TAKE ONE TABLET BY MOUTH DAILY 09/28/2016 12/29/2016 Inactive metformin ER 500 mg tablet,extended release 24 hr RxNorm: 86 0975 TAKE ONE TABLET BY MOUTH DAILY 09/28/2016 12/29/2016 Inactive Ventolin HFA 90 mcg/actuation aerosol inhaler RxNorm: 959823 INHALE TWO PUFFS BY MOUTH EVERY 4 HOURS NEEDED 09/22/2016 10/23/2016 Inactive Pulmicort 1 mg/2 mL suspension for nebulization RxNorm: 6168 19 1 Unit Dose INH BID Dx: COPD (J44.9) 09/10/2016 08/16/2017 Inactive Pulmicort 1 mg/2 mL suspension for nebulization RxNorm: 6168 19 1 Unit Dose INH BID 09/10/2016 09/09/2016 Inactive Brovana 15 mcg/2 mL solution for nebulization RxNorm: 826612 1 Unit Dose INH BID Dx: COPD (J44.9) 09/10/2016 01/25/2018 Inactive Brovana 15 mcg/2 mL solution for nebulization RxNorm: 587563 1 Unit Dose INH BID 09/10/2016 09/09/2016 Inactive ipratropium-albuterol 0.5 mg-3 mg(2.5 mg base)/3 mL ne bulization soln RxNorm: 4104545 1 Unit Dose INH Q4H as needed Dx: COPD (J44.9) 09/10/2016 0 02/12/2019 Inactive orphenadrine citrate ER 100 mg tablet,extended release RxNor m: 384183 1 Tablet(s) PO BID for muscle spasm--replaces methocarbamol 09/09/2016 Inactive Chantix Continuing Month Box 1 mg tablet RxNorm: 786849 Tablet(s) PO as directed 09/09/2016 10/30/2016 Inactive orphenadrine citrate ER 100 mg tablet,extended release RxNor m: 511590 1 Tablet(s) PO BID for muscle spasm 09/09/2016 09/08/2016 Inactive Spiriva with HandiHaler 18 mcg and inhalation capsules RxNor m: 661808 INHALE THE ENTIRE CONTENTS OF 1 CAPSULE ONCE A DAY USING HANDIHALER 09/01/201605/2017 Inactive Daliresp 500 mcg tablet RxNorm: 6296459 1 Tablet(s) PO QD 08/27/2016 03/01/2017 Inactive prednisone 20 mg tablet RxNorm: 308513 3 Tablet(s) PO T ID for 3 days then 1 po BID for 3 days then one daily for 3 days 08/26/2016 04/28/2017 Inactiv e Wellbutrin XL 300 mg 24 hr tablet, extended release RxNorm: 764417 TAKE ONE TABLET BY MOUTH EVERY MORNING 07/29/2016 10/26/2016 Inactive gabapentin 600 mg tablet RxNorm: 224035 1 Tablet(s) PO BID 06/26/20 16 12/22/2016 Inactive fluoxetine 40 mg capsule RxNorm: 243478 TAKE ONE CAPSULE BY BENOIT TH EVERY MORNING 06/24/2016 11/20/2016 Inactive Duragesic 100 mcg/hr transdermal patch RxNorm: 316324 2 Application TD Q48H for pain 06/05/2016 07/04/2016 Inactive oxycodone 10 mg tablet RxNorm: 7333312 1-2 Tablet(s) PO QID as n eeded for pain 06/05/2016 03/17/2017 Inactive Belladonna-Phenobarbital 48 mg tablet,extended release RxNor m: 2 Tablet(s) PO TID 06/05/2016 01/19/2017 Inactive Premarin 0.45 mg tablet RxNorm: 660302 TAKE ONE TABLET BY MOUTH DAILY 05/27/2016 09/23/2016 Inactive Topamax 100 mg tablet RxNorm: 445649 TAKE ONE TABLET BY MOUTH EVERY NIGHT AT BEDTIME 05/27/2016 09/27/2016 Inactive Synthroid 112 mcg tablet RxNorm: 819065 TAKE ONE TABLET BY MOUT H DAILY 05/27/2016 09/23/2016 Inactive metformin ER 500 mg tablet,extended release 24 hr RxNorm: 86 0975 TAKE ONE TABLET BY MOUTH DAILY 05/27/2016 09/23/2016 Inactive Symbicort 160 mcg-4.5 mcg/actuation HFA aerosol inhaler RxNo rm: 4304077 INHALE TWO PUFFS TWO TIMES A DAY 05/27/2016 10/23/2016 Inactive Ventolin HFA 90 mcg/actuation aerosol inhaler RxNorm: 881924 INHALE TWO PUFFS BY MOUTH EVERY 4 HOURS NEEDED 05/21/2016 07/07/2016 Inactive omeprazole 40 mg capsule,delayed release RxNorm: 930653 1 Capsu le(s) PO QD 05/06/2016 08/03/2016 Inactive metformin ER 500 mg tablet,extended release 24 hr RxNorm: 86 0975 TAKE ONE TABLET BY MOUTH DAILY 04/23/2016 05/22/2016 Inactive methocarbamol 750 mg tablet RxNorm: 518093 2 Tablet(s) PO TID as needed for muscle spasm 04/23/2016 09/08/2016 Inactive Synthroid 112 mcg tablet RxNorm: 518775 TAKE ONE TABLET BY MOUT H DAILY 04/23/2016 05/22/2016 Inactive Spiriva with HandiHaler 18 mcg and inhalation capsules RxNor m: 688693 INHALE THE ENTIRE CONTENTS OF 1 CAPSULE ONCE A DAY USING HANDIHALER 04/09/201608/2016 Inactive Diflucan 100 mg tablet RxNorm: 305043 1 Tablet(s) PO QD 04/08/2016 Inactive doxycycline hyclate 100 mg capsule RxNorm: 9067318 1 Capsule(s) PO BID 04/08/2016 04/17/2016 Inactive doxycycline hyclate 100 mg capsule RxNorm: 9029810 1 Capsule(s) PO BID 04/08/2016 04/07/2016 Inactive Diflucan 100 mg tablet RxNorm: 204799 1 Tablet(s) PO QD 04/08/2016 Inactive ondansetron HCl 4 mg tablet RxNorm: 788384 1 Tablet(s) PO Q4H as needed for nausea and vomiting 04/08/2016 09/22/2017 Inactive gabapentin 600 mg tablet RxNorm: 233841 TAKE ONE TABLET BY MOUT H TWICE A DAY 03/24/2016 06/25/2016 Inactive Synthroid 112 mcg tablet RxNorm: 023103 TAKE ONE TABLET BY MOUT H DAILY 02/25/2016 04/22/2016 Inactive Levaquin 500 mg tablet RxNorm: 874303 1 Tablet(s) PO QD 01/23/2016 Inactive prednisone 20 mg tablet RxNorm: 328400 1 Tablet(s) PO T ID for 3 days then 1 po BID for 3 days then one daily for 3 days 01/23/2016 08/25/2016 Inactiv e bulletn. Ultra Test strips RxNorm: TEST BLOOD SUGAR ONCE DAILY 250.00 01/09/2016 11/04/2017 Inactive methocarbamol 750 mg tablet RxNorm: 855524 2 Tablet(s) PO TID as needed for muscle spasm 01/09/2016 04/23/2016 Inactive lactulose 10 gram/15 mL oral solution RxNorm: 585157 [address](s) PO QD 01/09/2016 09/22/2017 Inactive TAKE 1 TABLESPOON BY MOUTH ONCE DAILY metformin ER 500 mg tablet,extended release 24 hr RxNorm: 86 0975 1 Tablet(s) PO QD 12/26/2015 04/22/2016 Inactive fluoxetine 20 mg capsule RxNorm: 634487 1 Capsule(s) PO QD 12/23/19 16 06/19/2016 Inactive Premarin 0.45 mg tablet RxNorm: 244150 TAKE ONE TABLET BY MOUTH DAILY 12/23/2015 05/20/2016 Inactive fluoxetine 40 mg capsule RxNorm: 177590 1 Capsule(s) PO QD 12/23/19 16 06/19/2016 Inactive TAKE ONE CAPSULE BY MOUTH EV JANKI MORNING azithromycin 500 mg tablet RxNorm: 935814 1 Tablet(s) PO QD 016 12/19/2015 Inactive Zofran 4 mg tablet RxNorm: 845405 1 Tablet(s) PO Q4H prn nausea /vomiting 12/13/2015 03/30/2018 Inactive azithromycin 500 mg tablet RxNorm: 518363 1 Tablet(s) PO QD 016 12/12/2015 Inactive Duragesic 100 mcg/hr transdermal patch RxNorm: 423763 2 Application TD Q48H for pain 12/09/2015 01/07/2016 Inactive oxycodone 10 mg tablet RxNorm: 1914902 1-2 Tablet(s) PO QID as n eeded for pain 12/09/2015 06/04/2016 Inactive Bactroban 2 % topical cream RxNorm: 587549 Application TOP BID 11/2208/25/2016 Inactive doxycycline hyclate 100 mg capsule RxNorm: 1090952 1 Capsule(s) PO BID 12/03/2015 12/12/2015 Inactive Topamax 100 mg tablet RxNorm: 943134 TAKE ONE TABLET BY MOUTH EVERY NIGHT AT BEDTIME 11/25/2015 05/22/2016 Inactive Symbicort 160 mcg-4.5 mcg/actuation HFA aerosol inhaler RxNo rm: 3012823 INHALE TWO PUFFS TWO TIMES A DAY 11/25/2015 05/22/2016 Inactive Synthroid 112 mcg tablet RxNorm: 721436 Tablet(s) TAKE ONE TABLET BY MOUTH DAILY 11/25/2015 02/22/2016 Inactive omeprazole 40 mg capsule,delayed release RxNorm: 446115 1 Capsu le(s) PO QD 11/12/2015 05/05/2016 Inactive oxycodone 10 mg tablet RxNorm: 7075868 1-2 Tablet(s) PO QID as n eeded for pain 11/05/2015 12/08/2015 Inactive Duragesic 100 mcg/hr transdermal patch RxNorm: 365651 2 Application TD Q48H for pain 11/05/2015 12/04/2015 Inactive omeprazole 40 mg capsule,delayed release RxNorm: 084826 1 Capsu le(s) PO QD 10/07/2015 11/11/2015 Inactive Januvia 100 mg tablet RxNorm: 316872 TAKE ONE TABLET BY MOUTH DAILY 09/11/2015 12/25/2015 Inactive Zithromax 500 mg tablet RxNorm: 370600 1 Tablet(s) PO QD 09/10/2015 1 Inactive prednisone 20 mg tablet RxNorm: 660141 1 Tablet(s) PO T ID for 3 days then 1 po BID for 3 days then one daily for 3 days 09/10/2015 08/25/2016 Inactiv e Wellbutrin XL 300 mg 24 hr tablet, extended release RxNorm: 384730 1 Tablet(s) PO QAM 09/10/2015 12/02/2015 Inactive Topamax 100 mg tablet RxNorm: 998324 TAKE ONE TABLET BY MOUTH EVERY NIGHT AT BEDTIME 09/02/2015 11/24/2015 Inactive Synthroid 112 mcg tablet RxNorm: 942767 TAKE ONE TABLET BY MOUT H DAILY 09/02/2015 11/25/2015 Inactive methocarbamol 750 mg tablet RxNorm: 251882 2 Tablet(s) PO TID as needed for muscle spasm 08/15/2015 01/09/2016 Inactive Wellbutrin XL 150 mg 24 hr tablet, extended release RxNorm: 134445 TAKE ONE TABLET BY MOUTH EVERY MORNING 08/13/2015 08/13/2015 Inactive gabapentin 600 mg tablet RxNorm: 336287 1 Tablet(s) PO BID 08/13/20 15 02/08/2016 Inactive Wellbutrin XL 300 mg 24 hr tablet, extended release RxNorm: 211462 1 Tablet(s) PO QAM 08/06/2015 09/09/2015 Inactive Wellbutrin XL 150 mg 24 hr tablet, extended release RxNorm: 627579 1 Tablet(s) PO QAM 07/18/2015 08/05/2015 Inactive prednisone 20 mg tablet RxNorm: 847493 1 Tablet(s) PO BID 07/18/2015 07/22/2015 Inactive doxycycline hyclate 100 mg tablet,delayed release RxNorm: 43 4018 1 Tablet(s) PO BID 07/18/2015 07/27/2015 Inactive pravastatin 40 mg tablet RxNorm: 162851 1 Tablet(s) PO QD NEEDS FASTING LAB 07/15/2015 07/14/2015 Inactive pravastatin 40 mg tablet RxNorm: 873771 1 Tablet(s) PO QD NEEDS FASTING LAB 07/15/2015 01/25/2018 Inactive Ventolin HFA 90 mcg/actuation aerosol inhaler RxNorm: 780616 2 Puff(s) INH Q4H 07/08/2015 07/07/2015 Inactive prn Premarin 0.45 mg tablet RxNorm: 595994 1 Tablet(s) PO QD 07/01/2015 0 12/22/2015 Inactive pravastatin 40 mg tablet RxNorm: 118523 1 Tablet(s) PO QD NEEDS FASTING LAB 06/14/2015 07/15/2015 Inactive Ventolin HFA 90 mcg/actuation aerosol inhaler RxNorm: 7519852 2 Puff(s) INH Q4H 06/06/2015 07/08/2015 Inactive prn albuterol sulfate 2.5 mg/3 mL (0.083 %) solution for n ebulization RxNorm: 268353 1 Unit Dose INH QID 05/30/2015 No Stop Date Active Duragesic 100 mcg/hr transdermal patch RxNorm: 523514 2 Application TD Q48H for pain 04/29/2015 05/28/2015 Inactive gabapentin 600 mg tablet RxNorm: 997498 1 Tablet(s) PO BID 04/11/20 15 08/13/2015 Inactive Onglyza 5 mg tablet RxNorm: 557735 1 Tablet(s) PO QD for blood suga r 04/10/2015 04/15/2015 Inactive [Brand Copay Card: RxBIN:[id number] PCN:CRISTIANA RxGRP:[id number] ID#:[id number]] methocarbamol 750 mg tablet RxNorm: 985892 2 Tablet(s) PO TID as needed for muscle spasm 03/28/2015 08/15/2015 Inactive pravastatin 40 mg tablet RxNorm: 851877 1 Tablet(s) PO QD 03/19/2015 03/18/2015 Inactive pravastatin 40 mg tablet RxNorm: 800762 1 Tablet(s) PO QD 03/19/2015 06/14/2015 Inactive lactulose 10 gram/15 mL oral solution RxNorm: 378057 [address]s) PO QD 03/07/2015 01/09/2016 Inactive TAKE 1 TABLESPOON BY MOUTH ONCE DAILY oxycodone 20 mg tablet RxNorm: 9223864 1 Tablet(s) PO QID as nee ded for pain 03/05/2015 07/08/2015 Inactive Topamax 100 mg tablet RxNorm: 284905 1 Tablet(s) PO QHS TAKE ONE TABLET BY MOUTH AT BEDTIME 02/25/2015 02/12/2019 Inactive metformin ER 500 mg tablet,extended release 24 hr RxNorm: 86 0975 1 Tablet(s) PO QD 02/11/2015 03/04/2015 Inactive take one tablet by mouth every day Daliresp 500 mcg tablet RxNorm: 8080277 1 Tablet(s) PO QD 02/11/2015 08/09/2015 Inactive Endocet 10 mg-325 mg tablet RxNorm: 2715645 1 Tablet(s) PO Q4H as needed for pain 01/23/2015 01/23/2015 Inactive gabapentin 600 mg tablet RxNorm: 222660 1 Tablet(s) PO BID 01/23/20 15 04/11/2015 Inactive methocarbamol 750 mg tablet RxNorm: 909928 2 Tablet(s) PO TID as needed for muscle spasm 01/15/2015 02/13/2015 Inactive fluoxetine 40 mg capsule RxNorm: 576841 1 Capsule(s) PO QD 01/14/20 15 12/23/2015 Inactive TAKE ONE CAPSULE BY MOUTH EV JANKI MORNING fluoxetine 20 mg capsule RxNorm: 178650 1 Capsule(s) PO QD 01/14/20 15 12/23/2015 Inactive Premarin 0.45 mg tablet RxNorm: 233348 1 Tablet(s) PO QD 01/02/2015 0 07/01/2015 Inactive Endocet 10 mg-325 mg tablet RxNorm: 8575701 1-2 Tablet(s) PO Q4H 02/12/2019 Inactive PRN PAIN Duragesic 100 mcg/hr transdermal patch RxNorm: 450946 2 Application TD Q48H for pain 12/25/2014 01/23/2015 Inactive Topamax 100 mg tablet RxNorm: 354306 1 Tablet(s) PO QHS TAKE ONE TABLET BY MOUTH AT BEDTIME 12/25/2014 02/24/2015 Inactive Tudorza Pressair 400 mcg/actuation breath activated RxNorm: 2479931 1 BID INHALE ONE PUFF INTO LUNGS TWO TIMES A DAY 12/17/2014 05/15/2015 Inactive Endocet 10 mg-325 mg tablet RxNorm: 3521835 1-2 Tablet(s) PO Q4H 12/19/2014 Inactive PRN PAIN Duragesic 100 mcg/hr transdermal patch RxNorm: 539522 2 Application TD Q48H for pain 11/20/2014 12/24/2014 Inactive bulletn. Ultra Test strips RxNorm: TEST BLOOD SUGAR ONCE DAILY 250.00 11/16/2014 01/08/2016 Inactive omeprazole 40 mg capsule,delayed release RxNorm: 887561 1 Capsu le(s) PO QD 11/13/2014 11/12/2015 Inactive metformin ER 500 mg tablet,extended release 24 hr RxNorm: 86 0975 1 Tablet(s) PO QD 11/12/2014 02/11/2015 Inactive take one tablet by mouth every day Symbicort 160 mcg-4.5 mcg/actuation HFA aerosol inhaler RxNo rm: 1135890 2 Puff(s) INH BID 11/12/2014 03/11/2015 Inactive INHALE 2 PUFFS O RALLY TWO TIMES A DAY gabapentin 800 mg tablet RxNorm: 039173 1 Tablet(s) PO QD TAKE ONE TABLET BY MOUTH ONCE A DAY 10/22/2014 01/01/2015 Inactive Endocet 10 mg-325 mg tablet RxNorm: 6114418 1-2 Tablet(s) PO Q4H 11/15/2014 Inactive PRN PAIN Duragesic 100 mcg/hr transdermal patch RxNorm: 261465 2 Application TD Q48H for pain 10/17/2014 11/19/2014 Inactive gabapentin 800 mg tablet RxNorm: 662427 1 Tablet(s) PO QD TAKE ONE TABLET BY MOUTH ONCE A DAY 10/04/2014 10/21/2014 Inactive Premarin 0.9 mg tablet RxNorm: 708783 1 Tablet(s) PO QD TAKE ONE TABLET BY MOUTH ONCE A DAY 10/04/2014 01/01/2015 Inactive Spiriva with HandiHaler 18 mcg & inhalation capsules RxNorm: 451038 1 Capsule(s) INH QD 10/03/2014 04/30/2015 Inactive Levaquin 500 mg tablet RxNorm: 915332 1 Tablet(s) PO QD 10/03/2014 Inactive prednisone 20 mg tablet RxNorm: 654988 1 Tablet(s) PO QD 10/03/201412/09/2013 Inactive Duragesic 100 mcg/hr transdermal patch RxNorm: 104813 2 Application TD Q48H for pain 09/18/2014 10/16/2014 Inactive Endocet 10 mg-325 mg tablet RxNorm: 5302418 1-2 Tablet(s) PO Q4H 10/16/2014 Inactive PRN PAIN Synthroid 112 mcg tablet RxNorm: 003067 1 Tablet(s) QD 09/10/2014 Inactive Synthroid 112 mcg tablet RxNorm: 975393 TAKE ONE TABLET BY MOUTH ONE TIME A DAY. NEEDS LABS 09/10/2014 02/06/2015 Inactive omeprazole 40 mg capsule,delayed release RxNorm: 464981 1 Capsu le(s) PO QD 09/03/2014 11/13/2014 Inactive omeprazole 40 mg capsule,delayed release RxNorm: 433584 1 Capsu le(s) PO QD 09/03/2014 09/02/2014 Inactive Spiriva with HandiHaler 18 mcg & inhalation capsules RxNorm: 606194 1 Capsule(s) INH QD 08/27/2014 10/02/2014 Inactive gabapentin 600 mg tablet RxNorm: 026621 1 Tablet(s) PO BID 08/27/20 14 10/22/2014 Inactive Endocet 10 mg-325 mg tablet RxNorm: 9240348 1-2 Tablet(s) PO Q4H 09/17/2014 Inactive PRN PAIN fentanyl 100 mcg/hr transdermal patch RxNorm: 616869 1 Unit Dos e TD QD 08/21/2014 09/19/2014 Inactive Daliresp 500 mcg tablet RxNorm: 2769720 1 Tablet(s) PO QD 08/13/2014 02/11/2015 Inactive Synthroid 112 mcg tablet RxNorm: 185057 TAKE ONE TABLET BY MOUTH ONE TIME A DAY. NEEDS LABS 08/10/2014 09/10/2014 Inactive Endocet 10 mg-325 mg tablet RxNorm: 2405864 1-2 Tablet(s) PO Q4H 08/17/2014 Inactive PRN PAIN Duragesic 100 mcg/hr transdermal patch RxNorm: 277386 2 Application TD Q48H for pain 07/19/2014 09/17/2014 Inactive fluoxetine 40 mg capsule RxNorm: 974113 1 Capsule(s) PO QD 07/17/20 14 01/14/2015 Inactive TAKE ONE CAPSULE BY MOUTH EV JANKI MORNING fluoxetine 20 mg capsule RxNorm: 383233 1 Capsule(s) PO QD 07/17/20 14 01/14/2015 Inactive Spiriva with HandiHaler 18 mcg & inhalation capsules RxNorm: 620044 1 Capsule(s) INH QD 07/17/2014 08/26/2014 Inactive INHALE CONTENTS OF 1 CAPSULE(S) WITH HANDIHALER ONCE DAILY Zofran 4 mg tablet RxNorm: 206274 1 Tablet(s) PO Q4H prn nausea 07/25/2014 Inactive Synthroid 112 mcg tablet RxNorm: 507611 1 Tablet(s) PO QD 07/09/2014 07/09/2014 Inactive methocarbamol 750 mg tablet RxNorm: 156190 2 Tablet(s) PO TID as needed for muscle spasm 07/09/2014 09/06/2014 Inactive Synthroid 112 mcg tablet RxNorm: 974366 1 Tablet(s) PO QD - nee d labs 07/09/2014 08/07/2014 Inactive Medrol (Aníabl) 4 mg tablets in a dose pack RxNorm: 378531 6 Tablet(s) PO QD --then as directed 07/03/2014 07/08/2014 Inactive Tudorza Pressair 400 mcg/actuation breath activated RxNorm: 7313179 1 Puff(s) INH BID 07/03/2014 12/17/2014 Inactive cefdinir 300 mg capsule RxNorm: 018812 1 Capsule(s) PO BID 07/03/20 14 07/12/2014 Inactive Topamax 100 mg tablet RxNorm: 865628 Tablet(s) TAKE ONE TABLET BY MOUTH AT BEDTIME 07/02/2014 02/25/2015 Inactive Duragesic 100 mcg/hr transdermal patch RxNorm: 047243 2 Application TD Q48H for pain 06/25/2014 07/18/2014 Inactive Endocet 10 mg-325 mg tablet RxNorm: 3368471 1-2 Tablet(s) PO Q4H 07/18/2014 Inactive PRN PAIN metformin ER 500 mg tablet,extended release 24 hr RxNorm: 86 0975 1 Tablet(s) PO QD Needs labs 06/18/2014 07/01/2014 Inactive take one tablet by mouth every day Duragesic 100 mcg/hr transdermal patch RxNorm: 490376 2 Application TD Q48H for pain 05/22/2014 06/24/2014 Inactive Synthroid 112 mcg tablet RxNorm: 923799 1 Tablet(s) PO QD 05/22/2014 07/09/2014 Inactive Endocet 10 mg-325 mg tablet RxNorm: 4701402 1-2 Tablet(s) PO Q4H 06/20/2014 Inactive PRN PAIN Endocet 10 mg-325 mg tablet RxNorm: 5796740 1-2 Tablet(s) PO Q4H 05/21/2014 Inactive PRN PAIN Duragesic 100 mcg/hr transdermal patch RxNorm: 005296 2 Application TD Q48H for pain 04/25/2014 05/21/2014 Inactive Daliresp 500 mcg tablet RxNorm: 0994319 1 Tablet(s) PO QD 04/24/2014 08/13/2014 Inactive Symbicort 160 mcg-4.5 mcg/actuation HFA aerosol inhaler RxNo rm: 4719510 2 Puff(s) INH BID 04/24/2014 08/21/2014 Inactive INHALE 2 PUFFS O RALLY TWO TIMES A DAY metformin ER 500 mg tablet,extended release 24 hr RxNorm: 86 0975 1 Tablet(s) PO QD 04/24/2014 11/12/2014 Inactive TAKE ONE TABLET BY MOUTH EVERY DAY [AttnRPh:Saving Apply/Adjudicate RxGRP:LDMGRP RxBIN:[id number] RxPCN:2012 PCode:01 ID#:[id number]] Symbicort 160 mcg-4.5 mcg/actuation HFA aerosol inhaler RxNo rm: [id number] 2 Puff(s) INH BID 04/24/2014 11/12/2014 Inactive INHALE 2 PUFFS O RALLY TWO TIMES A DAY Premarin 0.9 mg tablet RxNorm: 527403 1 Tablet(s) PO QD 04/24/2014 Inactive TAKE ONE TABLET BY MOUTH EVERY DAY metformin ER 500 mg tablet,extended release 24 hr RxNorm: 86 0975 1 Tablet(s) PO QD Needs labs 04/24/2014 06/18/2014 Inactive TAKE ONE TABLET BY MOUTH EVERY DAY [AttnRPh:Saving Apply/Adjudicate RxGRP:LDMGRP RxBIN:[id number] RxPCN:2012 PCode:01 ID#:[id number]] gabapentin 800 mg tablet RxNorm: 796603 1 Tablet(s) PO QD 04/24/2014 10/04/2014 Inactive TAKE ONE TABLET BY MOUTH EVERY DAY Topamax 100 mg tablet RxNorm: 307606 1 Tablet(s) PO QHS 04/17/2014 Inactive Topamax 100 mg tablet RxNorm: 029728 TAKE ONE TABLET BY MOUTH A T BEDTIME 04/17/2014 07/01/2014 Inactive Tudorza Pressair 400 mcg/actuation breath activated RxNorm: 1336790 1 Puff(s) INH BID 04/11/2014 07/02/2014 Inactive Duragesic 100 mcg/hr transdermal patch RxNorm: 497526 2 Application TD Q48H for pain 03/27/2014 04/24/2014 Inactive Endocet 10 mg-325 mg tablet RxNorm: 4943729 1-2 Tablet(s) PO Q4H 04/24/2014 Inactive PRN PAIN Robaxin 750 mg tablet RxNorm: 380565 2 Tablet(s) PO TID as need ed for spasm 02/23/2014 03/28/2015 Inactive Duragesic 100 mcg/hr transdermal patch RxNorm: 586166 2 Application TD Q48H for pain 02/23/2014 No Stop Date Active Endocet 10 mg-325 mg tablet RxNorm: 0912905 1-2 Tablet(s) PO Q4H 03/23/2014 Inactive PRN PAIN Synthroid 112 mcg tablet RxNorm: 448963 1 Tablet(s) PO QD TAKE ONE TABLET BY MOUTH EVERY DAY 02/15/2014 05/22/2014 Inactive Zithromax 500 mg tablet RxNorm: 598641 1 Tablet(s) PO QD 01/30/2014 0 02/05/2014 Inactive Diflucan 100 mg tablet RxNorm: 854537 1 Tablet(s) PO QD 01/30/2014 Inactive prednisone 20 mg tablet RxNorm: 080051 1 Tablet(s) PO BID 01/30/2014 02/05/2014 Inactive fluoxetine 40 mg capsule RxNorm: 446609 1 Capsule(s) PO QD 01/23/20 14 07/16/2014 Inactive TAKE ONE CAPSULE BY MOUTH EV JANKI MORNING fluoxetine 40 mg capsule RxNorm: 982091 1 Capsule(s) PO QD 01/23/20 14 07/17/2014 Inactive TAKE ONE CAPSULE BY MOUTH EV JANKI MORNING cefdinir 300 mg capsule RxNorm: 695965 1 Capsule(s) PO BID 01/16/20 14 01/29/2014 Inactive Zithromax 500 mg tablet RxNorm: 929241 1 Tablet(s) PO QD 01/16/2014 0 01/22/2014 Inactive prednisone 20 mg tablet RxNorm: 501010 1 Tablet(s) PO BID 01/16/2014 01/22/2014 Inactive Spiriva with HandiHaler 18 mcg and inhalation capsules RxNor m: 613423 1 Capsule(s) INH QD 12/18/2013 07/17/2014 Inactive INHALE CONTENT S OF 1 CAPSULE(S) WITH HANDIHALER ONCE DAILY fluoxetine 20 mg capsule RxNorm: 296058 1 Capsule(s) PO QD 12/18/19 14 06/15/2014 Inactive Spiriva with HandiHaler 18 mcg & inhalation capsules RxNorm: 370418 1 Capsule(s) INH QD 12/18/2013 06/15/2014 Inactive INHALE CONTENTS OF 1 CAPSULE(S) WITH HANDIHALER ONCE DAILY fluoxetine 20 mg capsule RxNorm: 615271 1 Capsule(s) PO QD 12/18/19 14 07/17/2014 Inactive cefdinir 300 mg capsule RxNorm: 064594 2 Capsule(s) PO QD 12/12/2013 12/21/2013 Inactive Duragesic 100 mcg/hr transdermal patch RxNorm: 711943 2 Application TD Q48H for pain 12/08/2013 12/07/2013 Inactive Topamax 100 mg tablet RxNorm: 257416 1 Tablet(s) PO QHS 12/04/2013 Inactive Endocet 10 mg-325 mg tablet RxNorm: 0273121 1-2 Tablet(s) PO Q4H 12/26/2013 Inactive PRN PAIN Robaxin 750 mg tablet RxNorm: 202752 2 Tablet(s) PO TID as need ed for spasm 11/07/2013 01/05/2014 Inactive gabapentin 800 mg tablet RxNorm: 501560 1 Tablet(s) PO QD 10/16/2013 04/24/2014 Inactive TAKE ONE TABLET BY MOUTH EVERY DAY Symbicort 160 mcg-4.5 mcg/actuation HFA aerosol inhaler RxNo rm: 5591498 2 Puff(s) INH BID 10/16/2013 04/24/2014 Inactive INHALE 2 PUFFS O RALLY TWO TIMES A DAY Premarin 0.9 mg tablet RxNorm: 570564 1 Tablet(s) PO QD 10/16/2013 Inactive TAKE ONE TABLET BY MOUTH EVERY DAY metformin ER 500 mg tablet,extended release 24 hr RxNorm: 86 0975 1 Tablet(s) PO QD 10/16/2013 04/24/2014 Inactive TAKE ONE TABLET BY MOUTH EVERY DAY Daliresp 500 mcg tablet RxNorm: 1252675 1 Tablet(s) PO QD 10/16/2013 04/24/2014 Inactive Robaxin 750 mg tablet RxNorm: 875225 2 Tablet(s) PO TID as need ed for spasm 10/10/2013 11/06/2013 Inactive Duragesic 100 mcg/hr transdermal patch RxNorm: 918054 2 Application TD Q48H for pain 10/09/2013 No Stop Date Active Soma 350 mg tablet RxNorm: 516804 1 Tablet(s) PO TID 09/27/201310/09 Inactive TAKE ONE TABLET BY MOUTH THREE TIMES A D AY lactulose 10 gram/15 mL oral solution RxNorm: 413909 [address](s) PO QD 09/13/2013 03/07/2015 Inactive TAKE 1 TABLESPOON BY MOUTH ONCE DAILY Duragesic 100 mcg/hr transdermal patch RxNorm: 138196 2 Application TD Q48H for pain 09/06/2013 No Stop Date Active Endocet 10 mg-325 mg tablet RxNorm: 8046777 1-2 Tablet(s) PO Q4H 09/27/2013 Inactive PRN PAIN lancets 28 gauge RxNorm: Miscellaneous As needed for blo od glucose sticks 08/24/2013 No Stop Date Active 16.2 mg-0.1037 mg-0.0194 mg tablet RxNorm: 9345665 Tablet(s) PO PRN for gas and cramping 08/24/2013 01/19/2017 Inactive TAKE TWO TABLET S BY MOUTH THREE TIMES A DAY NEEDED FOR GAS AND CRAMPING Topamax 100 mg tablet RxNorm: 002672 1 Tablet(s) PO QHS 07/31/2013 Inactive Diflucan 100 mg tablet RxNorm: 929966 1 Tablet(s) PO QD 07/27/2013 Inactive cefdinir 300 mg capsule RxNorm: 163513 1 Capsule(s) PO BID 07/26/20 13 08/08/2013 Inactive Daliresp 500 mcg tablet RxNorm: 7347334 1 Tablet(s) PO QD 07/25/2013 10/15/2013 Inactive fluoxetine 40 mg capsule RxNorm: 059995 1 Capsule(s) PO QD 07/25/20 13 01/22/2014 Inactive TAKE ONE CAPSULE BY MOUTH EV JANKI MORNING Senokot-S 8.6 mg-50 mg tablet RxNorm: 4911281 1 Tablet(s) PO BID 10/25/2013 Inactive doxycycline hyclate 100 mg capsule RxNorm: 4356781 1 Capsule(s) PO BID 06/28/2013 07/07/2013 Inactive prednisone 20 mg tablet RxNorm: 341048 1 Tablet(s) PO BID 06/28/2013 07/04/2013 Inactive Zofran 4 mg tablet RxNorm: 872405 1 Tablet(s) PO Q4H prn nausea 03/201307/05/2013 Inactive Spiriva with HandiHaler 18 mcg & inhalation capsules RxNorm: 098812 1 Capsule(s) INH QD 06/26/2013 12/18/2013 Inactive INHALE CONTENTS OF 1 CAPSULE(S) WITH HANDIHALER ONCE DAILY Synthroid 112 mcg tablet RxNorm: 287016 1 Tablet(s) PO QD TAKE ONE TABLET BY MOUTH EVERY DAY 06/19/2013 02/15/2014 Inactive fluoxetine 20 mg capsule RxNorm: 732992 1 Capsule(s) PO QD 06/19/20 13 12/18/2013 Inactive Ventolin HFA 90 mcg/actuation Aerosol Inhaler RxNorm: 7936552 2 Puff(s) INH Q4H 06/05/2013 No Stop Date Active prn Soma 350 mg tablet RxNorm: 220339 1 Tablet(s) PO TID 06/05/201307/04 Inactive TAKE ONE TABLET BY MOUTH THREE TIMES A D AY prednisone 20 mg tablet RxNorm: 606458 1 Tablet(s) PO QD 05/31/2013 0 06/06/2013 Inactive Topamax 100 mg tablet RxNorm: 210086 1 Tablet(s) PO QHS 05/22/2013 Inactive Levaquin 500 mg tablet RxNorm: 258765 1 Tablet(s) PO QD 05/03/2013 Inactive Diflucan 100 mg tablet RxNorm: 676128 1 Tablet(s) PO QD 05/03/2013 Inactive Daliresp 500 mcg tablet RxNorm: 1307595 1 Tablet(s) PO QD 05/01/2013 07/24/2013 Inactive Daliresp 500 mcg tablet RxNorm: 0578569 1 Tablet(s) PO QD 05/01/2013 04/30/2013 Inactive gabapentin 800 mg tablet RxNorm: 313629 1 Tablet(s) PO QD 04/10/2013 10/06/2013 Inactive TAKE ONE TABLET BY MOUTH EVERY DAY metformin ER 500 mg tablet,extended release 24 hr RxNorm: 86 0977 1 Tablet(s) PO QD 04/10/2013 10/06/2013 Inactive TAKE ONE TABLET BY MOUTH EVERY DAY Premarin 0.9 mg tablet RxNorm: 235305 1 Tablet(s) PO QD 04/10/2013 Inactive TAKE ONE TABLET BY MOUTH EVERY DAY Symbicort 160 mcg-4.5 mcg/actuation HFA aerosol inhaler RxNo rm: 6006519 2 Puff(s) INH BID 04/10/2013 10/06/2013 Inactive INHALE 2 PUFFS O RALLY TWO TIMES A DAY Synthroid 112 mcg tablet RxNorm: 869103 1 Tablet(s) PO QD TAKE ONE TABLET BY MOUTH EVERY DAY 04/10/2013 06/18/2013 Inactive Ventolin HFA 90 mcg/actuation Aerosol Inhaler RxNorm: 4693913 2 Puff(s) INH Q4H 04/10/2013 No Stop Date Active prn fentanyl 100 mcg/hr transdermal patch RxNorm: 266461 1 Unit Dos e TD QD 04/03/2013 05/02/2013 Inactive Endocet 10 mg-325 mg tablet RxNorm: 2326357 1-2 Tablet(s) PO Q4H 05/02/2013 Inactive PRN PAIN Topamax 100 mg tablet RxNorm: 102506 1 Tablet(s) PO QHS 03/13/2013 Inactive Reglan 10 mg tablet RxNorm: 847769 1 Tablet(s) PO QID b efore meals and at bedtime 03/13/2013 04/09/2015 Inactive fluoxetine 20 mg capsule RxNorm: 797380 1 Capsule(s) PO QD 02/28/20 13 05/27/2013 Inactive Ventolin HFA 90 mcg/actuation Aerosol Inhaler RxNorm: 3846891 2 Puff(s) INH Q4H 02/13/2013 No Stop Date Active prn fluoxetine 40 mg capsule RxNorm: 054777 1 Capsule(s) PO QD 01/31/20 13 07/24/2013 Inactive TAKE ONE CAPSULE BY MOUTH EV JANKI MORNING Soma 350 mg tablet RxNorm: 841443 1 Tablet(s) PO TID 01/20/201302/18 Inactive TAKE ONE TABLET BY MOUTH THREE TIMES A D AY Endocet 10 mg-325 mg tablet RxNorm: 1633551 1-2 Tablet(s) PO Q4H 02/06/2013 Inactive PRN PAIN MS Contin 200 mg tablet,extended release RxNorm: 764121 1 Table t(s) PO BID 01/18/2013 02/06/2013 Inactive Ventolin HFA 90 mcg/actuation Aerosol Inhaler RxNorm: 7267709 2 Puff(s) INH Q4H 01/04/2013 No Stop Date Active prn Spiriva with HandiHaler 18 mcg & inhalation capsules RxNorm: 046136 1 Capsule(s) INH QD 12/29/2012 06/25/2013 Inactive INHALE CONTENTS OF 1 CAPSULE(S) WITH HANDIHALER ONCE DAILY Spiriva with HandiHaler 18 mcg & inhalation capsules RxNorm: 659477 1 Capsule(s) INH QD 12/26/2012 12/28/2012 Inactive INHALE CONTENTS OF 1 CAPSULE(S) WITH HANDIHALER ONCE DAILY Synthroid 112 mcg tablet RxNorm: 624662 Tablet(s) PO TA KE ONE TABLET BY MOUTH EVERY DAY 12/26/2012 04/09/2013 Inactive Endocet 10 mg-325 mg tablet RxNorm: 8457140 1-2 Tablet(s) PO Q4H 01/17/2013 Inactive PRN PAIN MS Contin 200 mg tablet,extended release RxNorm: 567400 1 Table t(s) PO BID 12/21/2012 01/17/2013 Inactive fluoxetine 20 mg capsule RxNorm: 726304 1 Capsule(s) PO QD 12/06/19 13 02/26/2013 Inactive Synthroid 112 mcg tablet RxNorm: 988956 1 Tablet(s) PO QD 12/06/2012 02/12/2019 Inactive TAKE ONE TABLET BY MOUTH EVERY DAY Ventolin HFA 90 mcg/actuation Aerosol Inhaler RxNorm: 1898982 2 Puff(s) INH Q4H 12/06/2012 No Stop Date Active prn Reglan 10 mg tablet RxNorm: 061118 1 Tablet(s) PO QID b efore meals and at bedtime 11/24/2012 03/12/2013 Inactive Topamax 100 mg tablet RxNorm: 413818 1 Tablet(s) PO QHS 11/16/2012 Inactive Ventolin HFA 90 mcg/actuation Aerosol Inhaler RxNorm: 4212727 2 Puff(s) INH Q4H 11/09/2012 No Stop Date Active prn gabapentin 800 mg tablet RxNorm: 152103 1 Tablet(s) PO QD 10/27/2012 04/09/2013 Inactive TAKE ONE TABLET BY MOUTH EVERY DAY metformin ER 500 mg tablet,extended release 24 hr RxNorm: 86 0977 1 Tablet(s) PO QD 10/27/2012 04/09/2013 Inactive TAKE ONE TABLET BY MOUTH EVERY DAY Symbicort 160 mcg-4.5 mcg/actuation HFA Aerosol Inhaler RxNo rm: 7229725 2 Puff(s) INH BID 10/27/2012 04/09/2013 Inactive INHALE 2 PUFFS O RALLY TWO TIMES A DAY Premarin 0.9 mg tablet RxNorm: 292131 1 Tablet(s) PO QD 10/27/2012 Inactive TAKE ONE TABLET BY MOUTH EVERY DAY Endocet 10 mg-325 mg tablet RxNorm: 7288505 1-2 Tablet(s) PO Q4H 11/24/2012 Inactive PRN PAIN MS Contin 200 mg tablet,extended release RxNorm: 681276 1 Table t(s) PO BID 10/26/2012 11/24/2012 Inactive Soma 350 mg tablet RxNorm: 390467 1 Tablet(s) PO TID 10/04/201211/02 Inactive TAKE ONE TABLET BY MOUTH THREE TIMES A D AY Ventolin HFA 90 mcg/actuation Aerosol Inhaler RxNorm: 8319669 2 Puff(s) INH Q4H 10/03/2012 No Stop Date Active prn Daliresp 500 mcg tablet RxNorm: 5445101 1 Tablet(s) PO QD 09/28/2012 09/27/2012 Inactive Daliresp 500 mcg tablet RxNorm: 8816427 1 Tablet(s) PO QD 09/28/2012 04/25/2013 Inactive fluoxetine 20 mg capsule RxNorm: 795333 1 Capsule(s) PO QD 09/05/2012/06/2012 Inactive Topamax 50 mg tablet RxNorm: 277107 Tablet(s) PO for 1w k then 1 po q HS for 1wk then 2 po q HS 08/29/2012 09/27/2012 Inactive TAKE 1/2 TABLET BY MOUTH AT BEDTIME FOR 1 WEEK, THEN 1 TABLET AT BEDTIME FOR 1 WEEK, THEN 2 TABLETS AT BEDTIME Topamax 100 mg tablet RxNorm: 262649 1 Tablet(s) PO QHS 08/29/2012 Inactive Ventolin HFA 90 mcg/actuation Aerosol Inhaler RxNorm: 6612506 2 Puff(s) INH Q4H 08/19/2012 No Stop Date Active prn Ventolin HFA 90 mcg/actuation Aerosol Inhaler RxNorm: 0981105 2 Puff(s) INH Q4H 08/15/2012 No Stop Date Active prn Synthroid 112 mcg tablet RxNorm: 420112 1 Tablet(s) PO QD 08/10/2012 11/07/2012 Inactive TAKE ONE TABLET BY MOUTH EVERY DAY Synthroid 112 mcg tablet RxNorm: 049475 1 Tablet(s) PO QD 08/01/2012 08/09/2012 Inactive TAKE ONE TABLET BY MOUTH EVERY DAY Reglan 10 mg tablet RxNorm: 916170 1 Tablet(s) PO QID b efore meals and at bedtime 08/01/2012 11/23/2012 Inactive fluoxetine 40 mg capsule RxNorm: 892843 1 Capsule(s) PO QD 08/01/20 12 01/27/2013 Inactive TAKE ONE CAPSULE BY MOUTH EV JANKI MORNING Ventolin HFA 90 mcg/actuation Aerosol Inhaler RxNorm: 8019117 2 Puff(s) INH Q4H 08/01/2012 No Stop Date Active prn Soma 350 mg tablet RxNorm: 817016 1 Tablet(s) PO TID 07/20/201208/18 Inactive TAKE ONE TABLET BY MOUTH THREE TIMES A D AY Spiriva with HandiHaler 18 mcg & inhalation capsules RxNorm: 770228 1 Capsule(s) INH 07/01/2012 12/25/2012 Inactive INHALE CONTENTS OF 1 CAPSULE(S) WITH HANDIHALER ONCE DAILY Zithromax 250 mg Tab RxNorm: 961846 2 Tablet(s) PO QD 06/28/201206/22 Inactive MS Contin 200 mg tablet,extended release RxNorm: 826876 1 Table t(s) PO BID 06/28/2012 07/27/2012 Inactive Endocet 10 mg-325 mg tablet RxNorm: 3302454 1-2 Tablet(s) PO Q4H 07/27/2012 Inactive PRN PAIN Topamax 100 mg tablet RxNorm: 614765 1 Tablet(s) PO QHS 06/28/2012 Inactive 16.2 mg-0.1037 mg-0.0194 mg tablet RxNorm: 4850705 Tablet(s) PO PRN for gas and cramping 06/08/2012 08/23/2013 Inactive TAKE TWO TABLET S BY MOUTH THREE TIMES A DAY NEEDED FOR GAS AND CRAMPING Ventolin HFA 90 mcg/actuation Aerosol Inhaler RxNorm: 9754225 2 Puff(s) INH Q4H 05/23/2012 No Stop Date Active prn Ventolin HFA 90 mcg/actuation Aerosol Inhaler RxNorm: 9346681 2 Puff(s) INH Q4H 05/11/2012 No Stop Date Active prn Synthroid 112 mcg tablet RxNorm: 949733 1 Tablet(s) PO QD 05/09/2012 07/31/2012 Inactive TAKE ONE TABLET BY MOUTH EVERY DAY gabapentin 800 mg tablet RxNorm: 497141 1 Tablet(s) PO QD 05/09/2012 10/26/2012 Inactive TAKE ONE TABLET BY MOUTH EVERY DAY fluoxetine 40 mg capsule RxNorm: 822398 1 Capsule(s) PO QD 05/09/2007/31/2012 Inactive TAKE ONE CAPSULE BY MOUTH EV JANKI MORNING metformin ER 500 mg tablet,extended release 24 hr RxNorm: 86 0977 1 Tablet(s) PO QD 05/09/2012 10/26/2012 Inactive TAKE ONE TABLET BY MOUTH EVERY DAY Premarin 0.9 mg tablet RxNorm: 365845 1 Tablet(s) PO QD 05/09/2012 Inactive TAKE ONE TABLET BY MOUTH EVERY DAY Symbicort 160 mcg-4.5 mcg/actuation HFA Aerosol Inhaler RxNo rm: 1162030 2 Puff(s) INH BID 05/09/2012 10/26/2012 Inactive INHALE 2 PUFFS O RALLY TWO TIMES A DAY Endocet 10 mg-325 mg Tab RxNorm: 7874335 1-2 Tablet(s) PO Q4H 04/2705/26/2012 Inactive PRN PAIN MS Contin 200 mg Tab RxNorm: 697196 1 Tablet(s) PO BID 04/26/201202/2012 Inactive Ventolin HFA 90 mcg/actuation Aerosol Inhaler RxNorm: 2068436 2 Puff(s) INH Q4H 04/25/2012 05/10/2012 Inactive prn Soma 350 mg tablet RxNorm: 223585 2 Tablet(s) PO TID 04/19/201207/19 Inactive TAKE ONE TABLET BY MOUTH THREE TIMES A D AY Ventolin HFA 90 mcg/actuation Aerosol Inhaler RxNorm: 1838096 2 Puff(s) INH Q4H 04/12/2012 04/24/2012 Inactive prn Reglan 10 mg tablet RxNorm: 257152 1 Tablet(s) PO QID b efore meals and at bedtime 04/11/2012 07/31/2012 Inactive MS Contin 200 mg Tab RxNorm: 629261 1 Tablet(s) PO BID 03/30/201202/2012 Inactive Endocet 10 mg-325 mg Tab RxNorm: 2773002 1-2 Tablet(s) PO Q4H 03/3004/26/2012 Inactive PRN PAIN MS Contin 200 mg Tab RxNorm: 440030 1 Tablet(s) PO BID 03/02/201206/2012 Inactive Endocet 10 mg-325 mg Tab RxNorm: 3260588 1-2 Tablet(s) PO Q4H 03/0203/29/2012 Inactive PRN PAIN Daliresp 500 mcg tablet RxNorm: 4126050 1 Tablet(s) PO QD 03/01/2012 09/28/2012 Inactive MS Contin 200 mg Tab RxNorm: 009039 1 Tablet(s) PO BID 02/02/201208/2012 Inactive Endocet 10 mg-325 mg Tab RxNorm: 4007360 1-2 Tablet(s) PO Q4H 02/0103/01/2012 Inactive PRN PAIN fluoxetine 40 mg capsule RxNorm: 182860 1 Capsule(s) PO QD 02/02/2008/01/2012 Inactive TAKE ONE CAPSULE BY MOUTH EV JANKI MORNING Synthroid 112 mcg Tab RxNorm: 110632 1 Tablet(s) PO QD 01/18/2012 Inactive TAKE ONE TABLET BY MOUTH EVERY DAY lactulose 10 gram/15 mL oral solution RxNorm: 857349 [address]s) PO QD 01/18/2012 No Stop Date Active TAKE 1 TABLESPOON BY MOUTH ONCE DAILY Ventolin HFA 90 mcg/actuation Aerosol Inhaler RxNorm: 7506107 2 Puff(s) INH Q4H 01/18/2012 04/11/2012 Inactive prn MS Contin 200 mg Tab RxNorm: 982498 1 Tablet(s) PO BID 01/05/201210/2012 Inactive Endocet 10 mg-325 mg Tab RxNorm: 1501535 1-2 Tablet(s) PO Q4H 01/0502/01/2012 Inactive PRN PAIN ProAir HFA 90 mcg/Actuation Aerosol Inhaler RxNorm: 0583834 2 Pu ff(s) INH Q4H 12/21/2011 No Stop Date Active prn for wheezing or shortness of breath Spiriva with HandiHaler 18 mcg & inhalation Caps RxNorm: 580 261 1 Capsule(s) INH 12/21/2011 06/30/2012 Inactive INHALE CONTENTS OF 1 CAPSULE(S) WITH HANDIHALER ONCE DAILY Reglan 10 mg Tab RxNorm: 146217 1 Tablet(s) PO QID before meals and at bedtime 12/21/2011 04/10/2012 Inactive Synthroid 112 mcg Tab RxNorm: 106754 1 Tablet(s) PO QD 12/21/2011 Inactive TAKE ONE TABLET BY MOUTH EVERY DAY Endocet 10 mg-325 mg Tab RxNorm: 2264087 1-2 Tablet(s) PO Q4H 11/2512/24/2011 Inactive PRN PAIN MS Contin 200 mg Tab RxNorm: 115004 1 Tablet(s) PO BID 11/25/201112/2011 Inactive lactulose 10 gram/15 mL Oral Soln RxNorm: 887062 Milliliter(s) PO 1 No Stop Date Active TAKE 1 TABLESPOON BY MOUTH O NCE DAILY lactulose 10 gram/15 mL Oral Soln RxNorm: 188407 Milliliter(s) PO 1 12/12/2010 11/20/2011 Inactive TAKE 1 TABLESPOON BY MOUTH O NCE DAILY Premarin 0.9 mg Tab RxNorm: 530388 1 Tablet(s) PO QD 10/12/201105/08 Inactive TAKE ONE TABLET BY MOUTH EVERY DAY fluoxetine 20 mg capsule RxNorm: 175275 1 Capsule(s) PO QD 10/12/2009/05/2012 Inactive TAKE ONE CAPSULE BY MOUTH EV JANKI DAY Synthroid 112 mcg Tab RxNorm: 104917 1 Tablet(s) PO QD 10/12/2011 Inactive TAKE ONE TABLET BY MOUTH EVERY DAY metformin ER 500 mg 24 hr Tab RxNorm: 503429 1 Tablet(s) PO QD 09/2311/10/2011 Inactive TAKE ONE TABLET BY MOUTH GLYNN RY DAY Synthroid 112 mcg Tab RxNorm: 304927 1 Tablet(s) PO QD 10/12/2011 Inactive TAKE ONE TABLET BY MOUTH EVERY DAY metformin ER 500 mg 24 hr Tab RxNorm: 497297 1 Tablet(s) PO QD 09/2310/11/2011 Inactive TAKE ONE TABLET BY MOUTH GLYNN RY DAY Prevacid 30 mg Cap RxNorm: 381831 Capsule(s) PO 10/12/2011 01/25/2012 Inactive TAKE ONE CAPSULE BY MOUTH EVERY DAY Symbicort 160 mcg-4.5 mcg/actuation HFA Aerosol Inhaler RxNo rm: 3471894 2 Puff(s) INH BID 10/12/2011 05/08/2012 Inactive INHALE 2 PUFFS O RALLY TWO TIMES A DAY gabapentin 800 mg Tab RxNorm: 706622 1 Tablet(s) PO QD 10/12/2011 Inactive TAKE ONE TABLET BY MOUTH EVERY DAY MS Contin 200 mg Tab RxNorm: 013357 1 Tablet(s) PO BID 09/23/201111/2010 Inactive Endocet 10 mg-325 mg Tab RxNorm: 5808848 1-2 Tablet(s) PO Q4H 09/2310/22/2011 Inactive PRN PAIN Endocet 10 mg-325 mg Tab RxNorm: 5036634 1-2 Tablet(s) PO Q4H 08/2109/19/2011 Inactive PRN PAIN MS Contin 200 mg Tab RxNorm: 380289 1 Tablet(s) PO BID 08/21/2011 Inactive Diflucan 100 mg Tab RxNorm: 604130 1 Tablet(s) PO QD 08/10/201108/16 Inactive cefdinir 300 mg Cap RxNorm: 229847 2 Capsule(s) PO QD 08/10/201107/24 Inactive Reglan 10 mg Tab RxNorm: 759137 1 Tablet(s) PO AC & HS 07/15/2011 Inactive Endocet 10 mg-325 mg Tab RxNorm: 2614289 1-2 Tablet(s) PO Q4H 07/1508/13/2011 Inactive PRN PAIN One Touch Ultra Test strips RxNorm: Miscellaneous BID 06/11/201101/16/2014 Inactive TEST TWO TIMES A DAY lactulose 10 gram/15 mL Oral Soln RxNorm: 943559 Milliliter(s) PO 0 06/10/2011 10/11/2011 Inactive TAKE 1 TABLESPOON BY MOUTH O NCE DAILY Chantix Continuing Month Aníbal 1 mg Tab RxNorm: 701338 Tablet(s) PO 0 06/10/2011 11/02/2011 Inactive TAKE DIRECTED - PER PACKA GE INSTRUCTIONS fluoxetine 40 mg Cap RxNorm: 791491 Capsule(s) PO 06/10/2011 02/02/20 12 Inactive TAKE ONE CAPSULE BY MOUTH EVERY MORNING Chantix Continuing Month Aníbal 1 mg Tab RxNorm: 880093 Ta blet(s) PO TAKE DIRECTED - PER PACKAGE INSTRUCTIONS 05/13/2011 06/09/2011 Inactive Soma 350 mg Tab RxNorm: 481797 Tablet(s) PO TAKE ON E TABLET BY MOUTH THREE TIMES A DAY 05/13/2011 04/18/2012 Inactive Chantix Continuing Month Aníbal 1 mg Tab RxNorm: 418559 Ta blet(s) PO as directed per package instructions. 04/22/2011 05/12/2011 Inactive Symbicort 160 mcg-4.5 mcg/Actuation HFA Aerosol Inhaler RxNo rm: 6523863 HFA Aerosol Inhaler INH INHALE 2 PUFFS ORALLY TWO TIMES A DAY 04/13/2011 Inactive Synthroid 112 mcg Tab RxNorm: 454837 Tablet(s) PO TAKE ONE TABLET BY MOUTH EVERY DAY 04/13/2011 10/12/2011 Inactive Premarin 0.9 mg Tab RxNorm: 976375 Tablet(s) PO TAKE ON E TABLET BY MOUTH EVERY DAY 04/13/2011 10/12/2011 Inactive gabapentin 800 mg Tab RxNorm: 206713 Tablet(s) PO TAKE ONE TABLET BY MOUTH EVERY DAY 04/13/2011 10/12/2011 Inactive Prevacid 30 mg Cap RxNorm: 179402 1 Capsule(s) PO QD 04/13/201110/11 Inactive Spiriva with HandiHaler 18 mcg & inhalation Caps RxNorm: 580 261 Capsule(s) INH INHALE CONTENTS OF 1 CAPSULE(S) WITH HANDIHALER ONCE DAILY 04/13/2011 12/21/2011 Inactive metformin ER 500 mg 24 hr Tab RxNorm: 494967 Tablet(s) PO TAKE ONE TABLET BY MOUTH EVERY DAY 04/13/2011 10/12/2011 Inactive Soma 350 mg Tab RxNorm: 337667 1 Tablet(s) PO QID 03/30/2011 02/13/20 19 Inactive fluoxetine 20 mg Cap RxNorm: 988047 Capsule(s) PO TAKE ONE CAPSULE BY MOUTH EVERY DAY 03/25/2011 10/12/2011 Inactive cefdinir 300 mg Cap RxNorm: 155652 2 Capsule(s) PO QD 03/19/201105/2011 Inactive 16.2 mg-0.1037 mg-0.0194 mg Tab RxNorm: 9767379 2 Tablet(s) PO TID PRN for gas and cramping 03/16/2011 07/13/2011 Inactive Soma 350 mg Tab RxNorm: 272220 2 Tablet(s) PO TID 03/16/2011 03/29/20 11 Inactive Chantix Starting Month Aníbal 0.5 mg (11)-1 mg (3x14) Tab s in a Dose Pack RxNorm: 376465 Tablet(s) PO as directed 03/02/2011 No Stop Date Active diazepam 10 mg Tab RxNorm: 326916 1 Tablet(s) PO BID 02/10/201101/19 Inactive Zofran 4 mg tablet RxNorm: 280920 1 Tablet(s) PO Q4H prn nausea 02/16/2011 Inactive Diflucan 100 mg Tab RxNorm: 841170 1 Tablet(s) PO QD 01/18/201101/24 Inactive Premarin 0.625 mg/g Vaginal Cream RxNorm: 709216 VAG In sert 1gm vaginally at bedtime 3 times weekly 01/18/2011 02/12/2019 Inactive loratadine 10 mg Tab RxNorm: 112946 1 Tablet(s) PO QD 12/17/201003/2012 Inactive Spiriva with HandiHaler 18 mcg & inhalation Caps RxNorm: 580 261 1 Capsule(s) INH QD 12/17/2010 04/12/2011 Inactive Diflucan 100 mg Tab RxNorm: 598950 1 Tablet(s) PO QD 12/17/201012/23 Inactive diazepam 10 mg Tab RxNorm: 693625 1 Tablet(s) PO BID and PRN 201002/12/2019 Inactive One Touch Ultra Test Strips RxNorm: InVt BID Zainab t blood sugar at least twice daily. 11/11/2010 06/11/2011 Inactive fluoxetine 40 mg Cap RxNorm: 799927 1 Capsule(s) PO QAM 11/11/2010 Inactive diazepam 10 mg Tab RxNorm: 845528 1 Tablet(s) PO BID and PRN 200911/12/2010 Inactive Bactrim DS 800 mg-160 mg Tab RxNorm: 660762 1 Tablet(s) PO BID 09/2210/15/2010 Inactive fluoxetine 20 mg Cap RxNorm: 167571 1 Capsule(s) PO QD 10/02/201008/2011 Inactive Bactrim DS 800 mg-160 mg Tab RxNorm: 800137 1 Tablet(s) PO BID 01/201010/03/2010 Inactive Zofran 4 mg Tab RxNorm: 840116 1 Tablet(s) PO Q4H prn nausea 200910/16/2010 Inactive 16.2 mg-0.1037 mg-0.0194 mg Tab RxNorm: 1496580 2 Tablet(s) PO TID PRN for gas and cramping 09/17/2010 10/21/2010 Inactive Gabapentin 800 mg Tab RxNorm: 968209 1 Tablet(s) PO QD 09/16/2010 Inactive ProAir HFA 90 mcg/Actuation Aerosol Inhaler RxNorm: 2809700 2 Puff(s) INH Q4H prn shortness of breath 09/15/2010 12/13/2010 Inactive gabapentin 800 mg Tab RxNorm: 516417 1 Tablet(s) PO QD 09/15/2010 Inactive Prevacid 30 mg Cap RxNorm: 681473 1 Capsule(s) PO QD 09/15/201004/12 Inactive loratadine 10 mg Tab RxNorm: 581572 1 Tablet(s) PO QD 09/15/201011/23 Inactive Premarin 0.9 mg Tab RxNorm: 104734 1 Tablet(s) PO QD 09/15/201004/12 Inactive Synthroid 112 mcg Tab RxNorm: 318826 1 Tablet(s) PO QD 09/15/2010 Inactive metformin ER 500 mg 24 hr Tab RxNorm: 961948 1 Tablet(s) PO QD 08/2304/12/2011 Inactive Symbicort 160 mcg-4.5 mcg/Actuation Inhalation HFA Aer osol Inhaler RxNorm: 9042797 2 Puff(s) INH BID 09/15/2010 04/12/2011 Inactive diazepam 10 mg Tab RxNorm: 737337 1 Tablet(s) PO BID and PRN 200910/13/2010 Inactive Phentermine 37.5 mg Cap RxNorm: 463276 1 Capsule(s) PO QD 09/02/2010 11/02/2011 Inactive ProAir HFA 90 mcg/Actuation Aerosol Inhaler RxNorm: 7955873 2 Puff(s) INH Q4H prn shortness of breath 08/07/2010 No Stop Date Active Premarin 0.9 mg Tab RxNorm: 910476 1 Tablet(s) PO QD 08/07/201009/14 Inactive Loratadine 10 mg Tab RxNorm: 838164 1 Tablet(s) PO QD 08/07/201008/23 Inactive Lactulose 10 gram/15 mL Oral Soln RxNorm: 618797 1 Unit Dose PO QD 08/07/2010 02/12/2019 Inactive Zofran 4 mg Tab RxNorm: 723187 1 Tablet(s) PO Q4H prn nausea 2009 No Stop Date Active Gabapentin 800 mg Tab RxNorm: 424893 1 Tablet(s) PO QD 08/07/2010 Inactive Synthroid 112 mcg Tab RxNorm: 340516 1 Tablet(s) PO QD 08/07/2010 Inactive Metformin ER 500 mg 24 hr Tab RxNorm: 802985 1 Tablet(s) PO QD 07/2309/14/2010 Inactive Vitamin D 1,000 unit Tab RxNorm: 303468 1 Tablet(s) PO TID 08/07/2002/12/2019 Inactive Symbicort 160 mcg-4.5 mcg/Actuation Inhalation HFA Aer osol Inhaler RxNorm: 7896064 2 Puff(s) INH BID 08/07/2010 09/14/2010 Inactive Prevacid 30 mg Cap RxNorm: 084723 1 Capsule(s) PO QD 08/07/201009/14 Inactive Metformin ER 500 mg 24 hr Tab RxNorm: 940669 1 Tablet(s) PO QD 06/2308/06/2010 Inactive Vitamin D 1,000 unit Tab RxNorm: 047241 1 Tablet(s) PO TID 07/14/2008/06/2010 Inactive Synthroid 112 mcg Tab RxNorm: 831187 1 Tablet(s) PO QD 07/14/2010 Inactive Lactulose 10 gram/15 mL Oral Soln RxNorm: 201567 1 Unit Dose PO QD 07/14/2010 08/06/2010 Inactive Levaquin 500 mg Tab RxNorm: 483024 1 Tablet(s) PO QD 07/14/201007/27 Inactive Premarin 0.9 mg Tab RxNorm: 952213 1 Tablet(s) PO QD 07/14/201008/06 Inactive ProAir HFA 90 mcg/Actuation Aerosol Inhaler RxNorm: 8110512 2 Puff(s) INH Q4H prn shortness of breath 07/14/2010 No Stop Date Active Prevacid 30 mg Cap RxNorm: 649363 1 Capsule(s) PO QD 07/14/201008/06 Inactive Zofran 4 mg Tab RxNorm: 219674 1 Tablet(s) PO Q4H prn nausea 2009 No Stop Date Active Symbicort 160 mcg-4.5 mcg/Actuation Inhalation HFA Aer osol Inhaler RxNorm: 8333483 2 Puff(s) INH BID 07/14/2010 08/06/2010 Inactive Loratadine 10 mg Tab RxNorm: 102578 1 Tablet(s) PO QD 07/14/201007/23 Inactive Gabapentin 800 mg Tab RxNorm: 170765 1 Tablet(s) PO QD 07/14/2010 Inactive Metformin ER 500 mg 24 hr Tab RxNorm: 624340 1 Tablet(s) PO 010 07/13/2010 Inactive Diazepam 10 mg Tab RxNorm: 126468 1 Tablet(s) PO BID and PRN 200909/06/2010 Inactive Premarin 0.9 mg Tab RxNorm: 439710 1 Tablet(s) PO QD 06/09/201007/13 Inactive Zofran 4 mg Tab RxNorm: 741957 1 Tablet(s) PO Q4H prn nausea 2009 No Stop Date Active ProAir HFA 90 mcg/Actuation Aerosol Inhaler RxNorm: 6401649 2 Puff(s) INH Q4H prn shortness of breath 06/09/2010 No Stop Date Active Gabapentin 800 mg Tab RxNorm: 324281 1 Tablet(s) PO QD 06/09/2010 Inactive Loratadine 10 mg Tab RxNorm: 705425 1 Tablet(s) PO QD 06/09/201006/23 Inactive Lactulose 10 gram/15 mL Oral Soln RxNorm: 421495 1 Unit Dose PO QD 06/09/2010 07/13/2010 Inactive Prevacid 30 mg Cap RxNorm: 377634 1 Capsule(s) PO QD 06/09/201007/13 Inactive Synthroid 112 mcg Tab RxNorm: 878998 1 Tablet(s) PO QD 06/09/2010 Inactive Symbicort 160 mcg-4.5 mcg/Actuation Inhalation HFA Aer osol Inhaler RxNorm: 4540877 2 Puff(s) INH BID 06/09/2010 07/13/2010 Inactive Omnicef 300 mg Cap RxNorm: 245149 2 Capsule(s) PO QD 05/07/201005/20 Inactive Metformin 500 mg Tab RxNorm: 683870 1 Tablet(s) PO QD 05/06/201005/22 Inactive ProAir HFA 90 mcg/Actuation Aerosol Inhaler RxNorm: 8256464 2 Puff(s) INH Q4H prn shortness of breath 05/06/2010 No Stop Date Active lactulose 10 gram/15 mL Oral Soln RxNorm: 154674 1 Unit Dose PO QD 05/06/2010 06/10/2011 Inactive Loratadine 10 mg Tab RxNorm: 236359 1 Tablet(s) PO QD 05/06/201005/22 Inactive Synthroid 112 mcg Tab RxNorm: 796056 1 Tablet(s) PO QD 05/06/2010 Inactive Symbicort 160 mcg-4.5 mcg/Actuation Inhalation HFA Aer osol Inhaler RxNorm: 9003370 2 Puff(s) INH BID 05/06/2010 06/08/2010 Inactive Gabapentin 800 mg Tab RxNorm: 933748 1 Tablet(s) PO QD 05/06/2010 Inactive 16.2 mg-0.1037 mg-0.0194 mg Tab RxNorm: 2891172 2 Tablet(s) PO TID PRN for gas and cramping 05/06/2010 05/12/2010 Inactive Zofran 4 mg Tab RxNorm: 550648 1 Tablet(s) PO Q4H prn nausea 200904/13/2010 Inactive MS Contin 60 mg Tab RxNorm: 581773 3 Tablet(s) PO BID 04/09/201004/22 Inactive Soma 350 mg Tab RxNorm: 396756 2 Tablet(s) PO TID 04/09/2010 05/08/20 Inactive Symbicort 160 mcg-4.5 mcg/Actuation Inhalation HFA Aer osol Inhaler RxNorm: 6256571 2 Puff(s) INH BID 04/08/2010 05/05/2010 Inactive Doxycycline 100 mg Cap RxNorm: 2360610 1 Capsule(s) PO BID 04/08/20 10 04/17/2010 Inactive Triamterene-Hydrochlorothiazide 37.5 mg-25 mg Cap RxNorm: 19 8316 1 Capsule(s) PO QAM 04/08/2010 09/04/2010 Inactive fluoxetine 40 mg Cap RxNorm: 219761 1 Capsule(s) PO QAM 04/08/2010 Inactive Morphine SR 120 mg multiphase 24 hr Cap RxNorm: 224090 1 Capsul e(s) PO 03/11/2010 04/07/2010 Inactive Endocet 10 mg-325 mg Tab RxNorm: 8181789 1-2 Tablet(s) PO Q4H ME N PAIN 03/11/2010 04/09/2010 Inactive Savella 100 mg Tab RxNorm: 556262 1 Tablet(s) PO BID 03/10/201004/09 Inactive Soma 350 mg Tab RxNorm: 677519 1 Tablet(s) PO TID prn spasm 010 04/09/2010 Inactive Savella 100 mg Tab RxNorm: 342691 1 Tablet(s) PO BID 02/03/201004/09 Inactive Aspirin 81 mg Tab RxNorm: 516081 1 Tablet(s) PO QD No Start Date Active Zyrtec 10 mg Tab RxNorm: 0612135 1 Tablet(s) PO QD No Start Date Active One Touch Ultra Test Strips RxNorm: Misc test at least t wice daily. No Start Date Active coenzyme Q10 200 mg capsule RxNorm: 015473 1 Capsule(s) PO QD No Star t Date Active One Touch Ultra Test Strips RxNorm: InVt BID Zainab t blood sugar at least twice daily. No Start Date 11/10/2010 Inactive Gabapentin 800 mg Tab RxNorm: 274326 1 Tablet(s) PO QD No Start Date 05/05/2010 Inactive Abilify 5 mg tablet RxNorm: 414164 1 Tablet(s) PO QD No Start Date Inactive Chantix 1 mg Tab RxNorm: 937282 1 Tablet(s) PO BID No Start Date 10/22 Inactive Ozempic 0.25 mg or 0.5 mg (2 mg/1.5 mL) subcutaneous p en injector RxNorm: 2744859 .25 Milligram(s) SQ QW No Start Date 07/04/2019 Inactive lancets 28 gauge RxNorm: Miscellaneous As needed for blo od glucose sticks No Start Date 08/23/2013 Inactive potassium chloride ER 20 mEq tablet,extended release RxNorm: 237370 2 Tablet(s) PO QD No Start Date 09/26/2018 Inactive Ventolin HFA 90 mcg/actuation Aerosol Inhaler RxNorm: 478455 1 2 Puff(s) INH Q4H prn No Start Date 01/17/2012 Inactive potassium chloride ER 20 mEq tablet,extended release RxNorm: 187601 2 Tablet(s) PO QD No Start Date 10/19/2018 Inactive Januvia 100 mg tablet RxNorm: 309038 1 Tablet(s) PO QD No Start Date 09/10/2015 Inactive Medrol (Aníbal) 4 mg Tabs in a Dose Pack RxNorm: 999814 Tablet(s) PO N o Start Date 08/09/2011 Inactive as directed Zithromax Z-Aníbal 250 mg Tab RxNorm: 727553 Tablet(s) PO No Start Date 01/25/2012 Inactive as directed vitamin B6-vitamin E-magnesium tablet RxNorm: 1 Tablet(s ) PO QHS with INH No Start Date 03/30/2018 Inactive prednisone 20 mg Tab RxNorm: 680486 1 Tablet(s) PO TID for 1wk then 1 po BID for 1wk No Start Date 01/25/2012 Inactive furosemide 40 mg tablet RxNorm: 898673 1 Tablet(s) PO QAM No Start Date 10/09/2018 Inactive Vitamin D3 1000 units Capsule RxNorm: 1 Capsule(s) PO TID No S tart Date 03/19/2015 Inactive Zofran 4 mg Tab RxNorm: 575688 1 Tablet(s) PO Q4H prn nausea No Sta rt Date 04/13/2010 Inactive Premarin 0.625 mg/g Vaginal Cream RxNorm: 163923 1 Gram (s) VAG QHS 3 times a week No Start Date 09/22/2017 Inactive oxycodone 10 mg tablet RxNorm: 2017462 1-2 Tablet(s) PO QID as n eeded for pain No Start Date 11/04/2015 Inactive Nicoderm CQ 21 mg/24 hr daily Patch RxNorm: 971004 1 Applicatio n TD QD No Start Date 08/05/2015 Inactive Topamax 50 mg tablet RxNorm: 835707 1/2 Tablet(s) PO QH S for 1wk then 1 po q HS for 1wk then 2 po q HS No Start Date 06/27/2012 Inactive Chantix Starting Month Aníbal 0.5 mg (11)-1 mg (3x14) Tab s in a Dose Pack RxNorm: 236150 Tablet(s) PO as directed No Start Date 03/01/2011 Inactive Trulicity 0.75 mg/0.5 mL subcutaneous pen injector RxNorm: 1 233525 Milliliter(s) SQ No Start Date 07/04/2019 Inactive Medrol (Aníbal) 4 mg Tabs in a Dose Pack RxNorm: 928910 Tablet(s) PO N o Start Date 01/25/2012 Inactive as directed Duragesic 100 mcg/hr Transderm Patch RxNorm: 563775 2 A pplication TD Q48H for pain No Start Date 09/05/2013 Inactive Premarin 0.9 mg Tab RxNorm: 928406 1 Tablet(s) PO QD No Start Date Inactive Zithromax Z-Aníbal 250 mg Tab RxNorm: 327852 Tablet(s) PO as direc chinmay No Start Date 01/25/2012 Inactive ondansetron 8 mg disintegrating tablet RxNorm: 967184 1 Tablet(s) PO Q6H as needed No Start Date 10/10/2018 Inactive oxycodone 15 mg tablet RxNorm: 9618550 1 Tablet(s) PO QID as nee ded for pain No Start Date 03/05/2019 Inactive ProAir HFA 90 mcg/Actuation Aerosol Inhaler RxNorm: 968694 2 Puff(s) INH Q4H prn for wheezing or shortness of breath No Start Date 12/21/2011 Inactive pravastatin 40 mg tablet RxNorm: 966255 1/2 Tablet(s) PO QOD No Sta rt Date 04/09/2015 Inactive ipratropium-albuterol 0.5 mg-3 mg(2.5 mg base)/3 mL ne bulization soln RxNorm: 0801911 1 Unit Dose INH Q4H as needed No Start Date 09/09/2016 Inactive furosemide 40 mg tablet RxNorm: 575829 1 Tablet(s) PO QAM as ne eded No Start Date 09/24/2019 Inactive Vitamin D2 oral RxNorm: 4018 oral No Start Date 03/18/2015 Inacti ve pravastatin 40 mg tablet RxNorm: 442274 1/2 Tablet(s) PO QD No Star t Date 04/09/2015 Inactive ondansetron HCl 4 mg tablet RxNorm: 177051 1 Tablet(s) PO Q4H as needed for nausea and vomiting No Start Date 04/07/2016 Inactive furosemide 40 mg tablet RxNorm: 080588 2 Tablet(s) PO QAM No Start Date 09/26/2018 Inactive gabapentin 800 mg tablet RxNorm: 951423 1/2 Tablet(s) PO BID No Sta rt Date 06/21/2017 Inactive gabapentin 800 mg tablet RxNorm: 737021 1/2 Tablet(s) PO BID No Sta rt Date 07/05/2017 Inactive ProAir HFA 90 mcg/Actuation Aerosol Inhaler RxNorm: 5543666 2 Puff(s) INH Q4H prn shortness of breath No Start Date 05/05/2010 Inactive scopolamine 1 mg over 3 days transdermal patch RxNorm: 27182 2 1 Application TD behind ear. Take off after three days No Start Date 10/10/2018 Inactive Metformin 500 mg Tab RxNorm: 209836 1 Tablet(s) PO QD No Start Date 0 05/05/2010 Inactive MS Contin 200 mg Tab RxNorm: 347196 1 Tablet(s) PO BID No Start Date 08/20/2011 Inactive Belladonna-Phenobarbital 48 mg tablet,extended release RxNor m: 2 Tablet(s) PO TID No Start Date 06/04/2016 Inactive Synthroid 112 mcg Tab RxNorm: 587889 1 Tablet(s) PO QD No Start Date 05/05/2010 Inactive Zegerid 40 mg-1.1 gram Cap RxNorm: 831824 1 Capsule(s) PO QD No Sta rt Date 01/25/2012 Inactive Premarin 0.625 mg/g Vaginal Cream RxNorm: 841248 VAG In sert 1gm vaginally at bedtime 3 times weekly No Start Date 01/17/2011 Inactive potassium chloride ER 20 mEq tablet,extended release RxNorm: 277451 1 Tablet(s) PO QD No Start Date 04/24/2019 Inactive methocarbamol 750 mg tablet RxNorm: 179094 2 Tablet(s) PO TID as needed for muscle spasm No Start Date 07/08/2014 Inactive Biaxin XL Aníbal 500 mg 24 hr Tab RxNorm: 919036 Tablet(s) PO as d irected No Start Date 04/24/2013 Inactive Vitamin D3 1,000 unit tablet RxNorm: 054707 3 Tablet(s) PO QD No St art Date 06/01/2017 Inactive Morphine SR 120 mg multiphase 24 hr Cap RxNorm: 249053 1 Capsul e(s) PO BID No Start Date 04/09/2010 Inactive Silvadene 1 % topical cream RxNorm: 172841 1 Application TOP BI D to burn area No Start Date 01/31/2017 Inactive Prednisone 20 mg Tab RxNorm: 060950 1 Tablet(s) PO TID for 3days then BID for 4days No Start Date 01/25/2012 Inactive gabapentin 600 mg tablet RxNorm: 460521 1 Tablet(s) PO BID No Start Date 01/21/2015 Inactive topiramate 50 mg tablet RxNorm: 210090 1 Tablet(s) PO QHS No Start Date 03/30/2018 Inactive Januvia 100 mg tablet RxNorm: 356187 1/2 Tablet(s) PO QD No Start D ate 12/25/2015 Inactive Diazepam 10 mg Tab RxNorm: 095143 1 Tablet(s) PO BID and PRN No Sta rt Date 06/08/2010 Inactive Medication Administered No Medication Administered data Immunizations Vaccine Codes Date Status Influenza CVX: 141 09/28/2012 Pneumovax Unknown 09/28/2012 Influenza (Adult) CVX: 141 09/02/2010 Results No Results data Procedures Procedure Codes Date THER/PROPH/DIAG INJ SC/IM CPT-4: 20941 07/10/2019 METHYLPREDNISOLONE INJECTION CPT-4: J2930 07/10/2019 URINALYSIS NONAUTO W/O SCOPE CPT-4: 04655 09/06/2018 URINE CULTURE/ COLONY COUNT CPT-4: 91206 09/06/2018 DRAIN/INJECT JOINT/BURSA CPT-4: 01393 04/29/2017 TRIAMCINOLONE ACET INJ NOS CPT-4: J3301 04/29/2017 DEXAMETHASONE SODIUM PHOS CPT-4: J1100 04/29/2017 INFLUENZA ASSAY W/OPTIC CPT-4: 08538 12/01/2016 RESPIRATORY CULTURE & STAIN CPT-4: 32417 07/09/2016 TB INTRADERMAL TEST CPT-4: 60562 04/21/2016 DRAIN/INJECT JOINT/BURSA CPT-4: 32975 11/07/2013 METHYLPREDNISOLONE 40 MG INJ CPT-4: J1030 11/07/2013 TRIAMCINOLONE ACET INJ NOS CPT-4: J3301 11/07/2013 DRAIN/INJECT JOINT/BURSA CPT-4: 45614 08/08/2013 METHYLPREDNISOLONE 40 MG INJ CPT-4: J1030 08/08/2013 TRIAMCINOLONE ACET INJ NOS CPT-4: J3301 08/08/2013 FLU VACCINE 3 YRS & > IM UP 64 CPT-4: 02760 2 PNEUMOCOCCAL VACC 23 ADITYA IM CPT-4: 66004 09/28/2012 IMMUNIZATION ADMIN CPT-4: 05267 09/28/2012 IMMUNIZATION ADMIN EACH ADD CPT-4: 71295 09/28/2012 FLU VACCINE 3 YRS & > IM UP 64 CPT-4: 15833 0 IMMUNIZATION ADMIN CPT-4: 29453 09/02/2010 METHYLPREDNISOLONE INJECTION CPT-4: J2930 05/07/2010 THER/PROPH/DIAG INJ SC/IM CPT-4: 17964 05/07/2010 Vital Signs Date Vital 11/29/2019 Blood [...] 1: 122/78 Code: 8480-6 BMI: 29.5 Code: 97728-5 Heart Rate 1: 76 bpm Height: 5'4" Respiratory Rate: 20 bpm SpO2: 96% Tempera ture: 37.0 (C) / 98.6 (F) Weight: 172 lbs 01/25/2019 Blood Pressure 1: 132/80 Code: 8480-6 BMI: 29.7 Code: 39259-5 Heart Rate 1: 84 bpm Height: 5'4" Respiratory Rate: 22 bpm SpO2: 98% Tempera ture: 36.9 (C) / 98.4 (F) Weight: 173 lbs 01/03/2019 Blood Pressure 1: 116/70 Code: 8480-6 BMI: 29.5 Code: 31095-5 Heart Rate 1: 92 bpm Height: 5'4" Respiratory Rate: 24 bpm SpO2: 98% Tempera ture: 37.2 (C) / 98.9 (F) Weight: 172 lbs 11/21/2018 Blood Pressure 1: 146/82 Code: 8480-6 BMI: 28.2 Code: 63912-4 Heart Rate 1: 88 bpm Height: 5'4" Respiratory Rate: 22 bpm SpO2: 97% Tempera ture: 36.9 (C) / 98.4 (F) Weight: 164 lbs 10/27/2018 Blood Pressure 1: 122/70 Code: 8480-6 BMI: 27.6 Code: 68890-2 Heart Rate 1: 88 bpm Height: 5'4" Respiratory Rate: 20 bpm SpO2: 96% Tempera ture: 36.8 (C) / 98.3 (F) Weight: 161 lbs 10/18/2018 Blood Pressure 1: 126/70 Code: 8480-6 BMI: 28.3 Code: 71844-7 Heart Rate 1: 76 bpm Height: 5'4" Respiratory Rate: 20 bpm SpO2: 95% Tempera ture: 37.0 (C) / 98.6 (F) Weight: 165 lbs 09/27/2018 Blood Pressure 1: 124/78 Code: 8480-6 BMI: 27.1 Code: 29005-6 Heart Rate 1: 88 bpm Height: 5'4" Respiratory Rate: 20 bpm SpO2: 98% Tempera ture: 36.4 (C) / 97.6 (F) Weight: 158 lbs 09/14/2018 Blood Pressure 1: 140/72 Code: 8480-6 BMI: 26.1 Code: 36604-3 Heart Rate 1: 100 bpm Height: 5'4" Respiratory Rate: 20 bpm SpO2: 97% Tempera ture: 36.9 (C) / 98.4 (F) Weight: 152 lbs 09/06/2018 Blood Pressure 1: 156/82 Code: 8480-6 BMI: 26.3 Code: 23674-9 Heart Rate 1: 100 bpm Height: 5'4" Respiratory Rate: 28 bpm SpO2: 95% Tempera ture: 37.2 (C) / 98.9 (F) Weight: 153 lbs 08/16/2018 Blood Pressure 1: 130/78 Code: 8480-6 Heart Rate 1: 87 bpm Respiratory Rate: 24 bpm SpO2: 94% Temperature: 36.9 (C) / 98.4 (F) We ight: 147 lbs 8 oz 07/07/2018 Blood Pressure 1: 116/78 Code: 8480-6 BMI: 22.7 Code: 03429-7 Heart Rate 1: 88 bpm Height: 5'4" Respiratory Rate: 22 bpm SpO2: 98% Tempera ture: 36.5 (C) / 97.7 (F) Weight: 132 lbs 05/31/2018 Blood Pressure 1: 128/78 Code: 8480-6 BMI: 22.3 Code: 00431-7 Heart Rate 1: 92 bpm Height: 5'4" Respiratory Rate: 26 bpm SpO2: 94% Tempera ture: 36.7 (C) / 98.1 (F) Weight: 130 lbs 03/31/2018 Blood Pressure 1: 136/78 Code: 8480-6 BMI: 21.5 Code: 39502-5 Heart Rate 1: 76 bpm Height: 5'4" Respiratory Rate: 24 bpm SpO2: 95% Tempera ture: 36.8 (C) / 98.3 (F) Weight: 125 lbs 01/26/2018 Blood Pressure 1: 142/64 Code: 8480-6 BMI: 20.6 Code: 61347-7 Heart Rate 1: 90 bpm Height: 5'4" Respiratory Rate: 24 bpm SpO2: 92% Tempera ture: 36.3 (C) / 97.3 (F) Weight: 120 lbs 10/26/2017 Blood Pressure 1: 124/70 Code: 8480-6 BMI: 20.3 Code: 52699-3 Heart Rate 1: 76 bpm Height: 5'4" Respiratory Rate: 22 bpm SpO2: 94% Tempera ture: 36.7 (C) / 98.1 (F) Weight: 118 lbs 09/23/2017 Blood Pressure 1: 106/70 Code: 8480-6 BMI: 19.2 Code: 86875-4 Heart Rate 1: 76 bpm Height: 5'4" Respiratory Rate: 20 bpm SpO2: 94% Tempera ture: 36.8 (C) / 98.3 (F) Weight: 112 lbs 08/12/2017 Blood Pressure 1: 116/68 Code: 8480-6 BMI: 20.1 Code: 08395-3 Heart Rate 1: 80 bpm Height: 5'4" Respiratory Rate: 22 bpm SpO2: 95% Tempera ture: 36.8 (C) / 98.2 (F) Weight: 117 lbs 07/06/2017 Blood Pressure 1: 136/78 Code: 8480-6 BMI: 20.6 Code: 44676-7 Heart Rate 1: 76 bpm Height: 5'4" Respiratory Rate: 24 bpm SpO2: 96% Tempera ture: 36.8 (C) / 98.2 (F) Weight: 120 lbs 06/02/2017 Blood Pressure 1: 112/70 Code: 8480-6 Heart Rate 1: 92 bpm Height: 5'4" Respiratory Rate: 24 bpm SpO2: 95% Temperature: 37.0 (C) / 98.6 (F) Weight: 04/29/2017 Blood Pressure 1: 94/52 Code: 8480-6 BMI: 19.6 C ode: 79836-0 Heart Rate 1: 84 bpm Height: 5'4" [...] 92/58 Code: 8480-6 BMI: 19.2 C ode: 79194-7 Heart Rate 1: 84 bpm Height: 5'4" Respiratory Rate: 26 bpm SpO2: 95% Tempera ture: 36.7 (C) / 98.0 (F) Weight: 112 lbs 12/01/2016 Blood Pressure 1: 114/70 Code: 8480-6 BMI: 19.2 Code: 56281-0 Heart Rate 1: 96 bpm Height: 5'4" Respiratory Rate: 28 bpm SpO2: 93% Tempera ture: 38.3 (C) / 101.0 (F) Weight: 112 lbs 10/27/2016 Blood Pressure 1: 126/66 Code: 8480-6 BMI: 19.6 Code: 67054-1 Heart Rate 1: 92 bpm Height: 5'4" Respiratory Rate: 28 bpm SpO2: 90% Tempera ture: 36.8 (C) / 98.3 (F) Weight: 114 lbs 09/09/2016 Blood Pressure 1: 126/74 Code: 8480-6 Heart Rate 1: 104 bpm Height: 5'4" Respiratory Rate: 32 bpm SpO2: 88% Temperature: 37 .2 (C) / 99.0 (F) 08/26/2016 Blood Pressure 1: 134/82 Code: 8480-6 BMI: 22.0 Code: 91092-0 Heart Rate 1: 84 bpm Height: 5'4" Respiratory Rate: 24 bpm SpO2: 94% Tempera ture: 36.8 (C) / 98.3 (F) Weight: 128 lbs 05/21/2016 Blood Pressure 1: 142/80 Code: 8480-6 BMI: 21.6 Code: 14179-4 Heart Rate 1: 104 bpm Height: 5'4" Respiratory Rate: 22 bpm SpO2: 93% Tempera ture: 36.0 (C) / 96.8 (F) Weight: 126 lbs 03/25/2016 Blood Pressure 1: 126/62 Code: 8480-6 Heart Rate 1: 88 bpm Respiratory Rate: 20 bpm SpO2: 92% Temperature: 36.8 (C) / 98.3 (F) We ight: 130 lbs 01/23/2016 Blood Pressure 1: 146/82 Code: 8480-6 BMI: 24.1 Code: 95129-7 Heart Rate 1: 92 bpm Height: 5'3" Respiratory Rate: 22 bpm Temperature: 37 .1 (C) / 98.8 (F) Weight: 136 lbs 12/26/2015 Blood Pressure 1: 142/78 Code: 8480-6 BMI: 24.6 Code: 23118-8 Heart Rate 1: 78 bpm Height: 5'3" Respiratory Rate: 20 bpm Temperature: 36 .7 (C) / 98.1 (F) Weight: 139 lbs 12/03/2015 Blood Pressure 1: 126/60 Code: 8480-6 BMI: 24.6 Code: 54920-2 Heart Rate 1: 100 bpm Height: 5'3" Respiratory Rate: 28 bpm Temperature: 37 .6 (C) / 99.6 (F) Weight: 139 lbs 09/10/2015 Blood Pressure 1: 124/64 Code: 8480-6 BMI: 23.7 Code: 96361-1 Heart Rate 1: 88 bpm Height: 5'3" Respiratory Rate: 24 bpm SpO2: 95% Tempera ture: 36.4 (C) / 97.6 (F) Weight: 134 lbs 08/06/2015 Blood Pressure 1: 114/76 Code: 8480-6 BMI: 23.2 Code: 82074-4 Heart Rate 1: 88 bpm Height: 5'3" Respiratory Rate: 22 bpm Temperature: 36 .6 (C) / 97.9 (F) Weight: 131 lbs 07/18/2015 Blood Pressure 1: 144/78 Code: 8480-6 BMI: 23.7 Code: 52023-0 Heart Rate 1: 84 bpm Height: 5'3" Respiratory Rate: 20 bpm Temperature: 37 .2 (C) / 99.0 (F) Weight: 134 lbs 04/10/2015 Blood Pressure 1: 110/64 Code: 8480-6 Heart Rate 1: 80 bpm Height: Respiratory Rate: 20 bpm Temperature: 37.1 (C) / 98.8 (F) Weight: 03/05/2015 Blood Pressure 1: 136/80 Code: 8480-6 BMI: 23.9 Code: 78596-8 Heart Rate 1: 76 bpm Height: 5'3" Respiratory Rate: 24 bpm Temperature: 37 .0 (C) / 98.6 (F) Weight: 135 lbs 01/30/2015 Blood Pressure 1: 142/80 Code: 8480-6 BMI: 23.0 Code: 77732-9 Heart Rate 1: 96 bpm Height: 5'3" Respiratory Rate: 22 bpm Temperature: 36 .2 (C) / 97.2 (F) Weight: 130 lbs 01/02/2015 Blood Pressure 1: 124/70 Code: 8480-6 BMI: 23.4 Code: 43432-5 Heart Rate 1: 84 bpm Height: 5'3" Respiratory Rate: 24 bpm SpO2: 95% Tempera ture: 36.9 (C) / 98.5 (F) Weight: 132 lbs 10/03/2014 Blood Pressure 1: 106/68 Code: 8480-6 BMI: 22.5 Code: 65824-2 Heart Rate 1: 88 bpm Height: 5'3" Respiratory Rate: 24 bpm Temperature: 37 .0 (C) / 98.6 (F) Weight: 127 lbs 08/27/2014 Blood Pressure 1: 124/68 Code: 8480-6 BMI: 21.1 Code: 01220-5 Heart Rate 1: 88 bpm Height: 5'3" [...] 1: 120/70 Code: 8480-6 BMI: 19.2 Code: 61410-8 Heart Rate 1: 70 bpm Height: 5'4" Respiratory Rate: 20 bpm Temperature: 36 .9 (C) / 98.4 (F) Weight: 112 lbs 06/28/2013 Blood Pressure 1: 102/68 Code: 8480-6 BMI: 19.6 Code: 71284-8 Heart Rate 1: 76 bpm Height: 5'4" Respiratory Rate: 20 bpm Temperature: 36 .8 (C) / 98.2 (F) Weight: 114 lbs 05/31/2013 Blood Pressure 1: 106/70 Code: 8480-6 BMI: 18.9 Code: 91151-2 Heart Rate 1: 100 bpm Height: 5'4" Respiratory Rate: 20 bpm Temperature: 36 .4 (C) / 97.6 (F) Weight: 110 lbs 05/03/2013 Blood Pressure 1: 126/70 Code: 8480-6 BMI: 19.1 Code: 67636-9 Heart Rate 1: 88 bpm Height: 5'4" Respiratory Rate: 20 bpm Temperature: 37 .1 (C) / 98.8 (F) Weight: 111 lbs 04/25/2013 Blood Pressure 1: 114/68 Code: 8480-6 BMI: 19.4 Code: 42538-4 Heart Rate 1: 92 bpm Height: 5'4" Respiratory Rate: 24 bpm SpO2: 96% Tempera ture: 37.7 (C) / 99.8 (F) Weight: 113 lbs 03/08/2013 Blood Pressure 1: 94/68 Code: 8480-6 BMI: 21.3 C ode: 55529-2 Heart Rate 1: 88 bpm Height: 5'4" Respiratory Rate: 24 bpm Temperature: 37 .0 (C) / 98.6 (F) Weight: 124 lbs 02/07/2013 Blood Pressure 1: 106/64 Code: 8480-6 BMI: 21.8 Code: 50221-5 Heart Rate 1: 84 bpm Height: 5'4" Respiratory Rate: 22 bpm Temperature: 36 .8 (C) / 98.2 (F) Weight: 127 lbs 01/10/2013 Blood Pressure 1: 122/68 Code: 8480-6 BMI: 21.6 Code: 78099-8 Heart Rate 1: 94 bpm Height: 5'4" SpO2: 94% Temperature: 36.7 (C) / 98.1 (F) Weight: 126 lbs 09/28/2012 Blood Pressure 1: 124/78 Code: 8480-6 BMI: 24.9 Code: 20767-5 Heart Rate 1: 92 bpm Height: 5'4" Respiratory Rate: 20 bpm Temperature: 36 .7 (C) / 98.1 (F) Weight: 145 lbs 06/28/2012 Blood Pressure 1: 134/80 Code: 8480-6 BMI: 24.9 Code: 42916-6 Heart Rate 1: 76 bpm Height: 5'4" Respiratory Rate: 20 bpm Temperature: 36 .8 (C) / 98.2 (F) Weight: 145 lbs 05/03/2012 Blood Pressure 1: 108/62 Code: 8480-6 BMI: 25.6 Code: 26014-7 Heart Rate 1: 88 bpm Height: 5'4" Temperature: 36.2 (C) / 97.2 (F) Weight: 149 lbs 03/01/2012 Blood Pressure 1: 124/66 Code: 8480-6 BMI: 25.1 Code: 85216-4 Heart Rate 1: 76 bpm Height: 5'4" Respiratory Rate: 20 bpm Temperature: 36 .6 (C) / 97.9 (F) Weight: 146 lbs 01/26/2012 Blood Pressure 1: 118/82 Code: 8480-6 BMI: 25.1 Code: 92427-1 Heart Rate 1: 74 bpm Height: 5'4" Temperature: 36.8 (C) / 98.2 (F) Weight: 146 lbs 11/03/2011 Blood Pressure 1: 126/80 Code: 8480-6 BMI: 27.3 Code: 76335-6 Heart Rate 1: 72 bpm Height: 5'4" [...] prozac Encounters Encounter Performer Location Codes Date ([id number]) OFFICE/OUTPATIENT VISIT EST Diagnosis: Chronic pain syndrome[ICD10: G89.4] Diagnosis: Localized edema[ICD10: R60.0] Diagnosis: Chronic obstructive pulmonary disease, unspecified[ICD10: J44.9] Diagnosis: Other fatigue[ICD10: R53.83] Diagnosis: Muscle weakness (generalized)[ICD10: M62.81] Diagnosis: Spinal stenosis, lumbar region with neurogenic claudication[ICD10: M48.062] Vika RENTERIA [employer] CPT-4: 69855 11/29/2019 ([id number]) OFFICE/OUTPATIENT VISIT EST Diagnosis: Chronic pain syndrome[ICD10: G89.4] Diagnosis: Lumbar degenerative disc disease[ICD10: M51.36] Diagnosis: Muscle spasm[ICD10: M62.838] Diagnosis: Spinal stenosis, lumbar region with neurogenic claudication[ICD10: M48.062] Diagnosis: Spondylosis without myelopathy or radiculopathy, 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] Vika RENTERIA [employer] CPT-4: 55168 10/30/2019 ([id number]) OFFICE/OUTPATIENT VISIT EST Diagnosis: Chronic pain syndrome[ICD10: G89.4] Vika RENTERIA [employer] CPT-4: 21458 10/25/2019 ([id number]) OFFICE/OUTPATIENT VISIT EST Diagnosis: Epigastric pain[ICD10: R10.13] Diagnosis: Nausea[ICD10: R11.0] Diagnosis: Chronic obstructive pulmonary disease, unspecified[ICD10: J44.9] Vika RENTERIA [facility] CPT-4: 35006 07/26/2019 ([id number]) OFFICE/OUTPATIENT VISIT EST Diagnosis: Chronic obstructive pulmonary disease with (acute) exacerbation[ICD10: J44.1] Diagnosis: Chronic respiratory failure with hypoxia[ICD10: J96.11] Diagnosis: Other fatigue[ICD10: R53.83] Diagnosis: Edema, unspecified[ICD10: R60.9] Vika RENTERIA [employer] [facility] CPT-4: 56523 07/19/2019 ([id number]) OFFICE/OUTPATIENT VISIT EST Diagnosis: Chronic obstructive pulmonary disease with acute lower respiratory infection[ICD10: J44.0] Vika RENTERIA DO [facility] CPT-4: 42000 07/10/2019 ([id number]) OFFICE/OUTPATIENT VISIT EST Diagnosis: Type 2 diabetes mellitus with hyperglycemia[ICD10: E11.65] Diagnosis: Other infective otitis externa, left ear[ICD10: H60.392] Vika RENTERIA [employer] CPT-4: 23103 06/05/2019 ([id number]) OFFICE/OUTPATIENT VISIT EST Diagnosis: Chronic obstructive pulmonary disease with (acute) exacerbation[ICD10: J44.1] Diagnosis: Type 2 diabetes mellitus with hyperglycemia[ICD10: E11.65] Vika RENTERIA [employer] CPT-4: 79668 05/03/2019 ([id number]) OFFICE/OUTPATIENT VISIT EST Diagnosis: Type 2 diabetes mellitus with hyperglycemia[ICD10: E11.65] Diagnosis: Abnormal weight gain[ICD10: R63.5] Diagnosis: Chronic obstructive pulmonary disease with acute lower respiratory infection[ICD10: J44.0] Vika RENTERIA DO [facility] CPT-4: 26988 04/11/2019 ([id number]) OFFICE/OUTPATIENT VISIT EST Diagnosis: Hypothyroidism,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
--- OUTSIDE RECORDS SUMMARY | 2020-04-24 23:27 | XMS REPORT | CCD ---
Author Author Yana Renteria D.O. 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 Role Phone Vika Renteria D.O., PP Unavailable CCM Unavailable Summary Purpose Interface Exchange Insurance Providers Payer name Policy type / Coverage type Covered republican ID Effective Begin Date Effective End Date [employer] [facility] [place] Medicaid [id number] 2018 U nknown Family History Family History data not found Social History Social History Element Codes Description Effective Dates Marital status Unknown 06/28/[address]: 42450498 Currently smokes tobacco 05/2013 Allergies, Adverse Reactions, [...] mg tablets in a dose pack RxNorm: 188290 6 Tablet(s) Oral QD --then as directed 11/30/2019 12/05/2019 Active MS Contin 200 mg tablet,extended release RxNorm: 969645 1 Tablet(s) Oral two times a day 11/29/2019 12/29/2019 Active cyclobenzaprine 10 mg tablet RxNorm: 292546 TAKE ONE TA BLET BY MOUTH THREE TIMES A DAY NEEDED 11/21/2019 No Stop Date Active MS Contin 200 mg tablet,extended release RxNorm: 522620 1 Tablet(s) Oral two times a day replaces 100mg dose 11/03/2019 11/02/2019 Inactive MS Contin 200 mg tablet,extended release RxNorm: 570069 1 Tablet(s) Oral two times a day replaces 100mg dose 11/03/2019 11/29/2019 Inactive ferrous sulfate 325 mg (65 mg iron) tablet RxNorm: 775124 1 Tab let(s) Oral QD 10/30/2019 No Stop Date Active MS Contin 100 mg tablet,extended release RxNorm: 577285 1 Table t(s) Oral QD 10/30/2019 10/29/2019 Inactive MS Contin 100 mg tablet,extended release RxNorm: 131169 1 Table t(s) Oral QD 10/30/2019 11/02/2019 Inactive Relistor 150 mg tablet RxNorm: 6953407 TAKE THREE TABLETS BY BENOIT TH DAILY 10/25/2019 No Stop Date Active pantoprazole 40 mg tablet,delayed release RxNorm: 192410 1 Tabl et(s) Oral QD 10/25/2019 No Stop Date Active metformin 500 mg tablet RxNorm: 716670 1 Tablet(s) Oral QD 10/25/20 No Stop Date Active levothyroxine 25 mcg tablet RxNorm: 628160 1 Tablet(s) Oral QAM 02/201912/23/2019 Active Minipress 2 mg capsule RxNorm: 309912 1 Capsule(s) Oral QAM and 3 at bedtime 10/25/2019 No Stop Date Active Lancets, Super Thin RxNorm: 1 Unit Dose Miscellaneous QD 9 11/27/2020 Active Cymbalta 60 mg capsule,delayed release RxNorm: 794086 1 Capsule (s) Oral QAM 10/25/2019 No Stop Date Active Cymbalta 30 mg capsule,delayed release RxNorm: 393703 1 Capsule (s) Oral QAM 10/25/2019 No Stop Date Active oxycodone 15 mg tablet RxNorm: 0016895 1 Tablet(s) Oral four times a day as needed for pain 10/25/2019 11/28/2019 Inactive levothyroxine 25 mcg tablet RxNorm: 209006 1 Tablet(s) Oral QAM 02/201910/24/2019 Inactive MS Contin 100 mg tablet,extended release RxNorm: 918978 1 Tablet(s) Oral two times a day replaces fentanyl 10/25/2019 10/25/2019 Inactive Premarin 0.45 mg tablet RxNorm: 374376 TAKE ONE TABLET BY MOUTH DAILY 10/24/2019 No Stop Date Active Duragesic 100 mcg/hr transdermal patch RxNorm: 174952 2 Application TD Q48H for pain 10/18/2019 10/24/2019 Inactive gabapentin 300 mg capsule RxNorm: 342823 TAKE ONE CAPSULE BY MO [facility] TWICE A DAY 10/16/2019 No Stop Date Active cyclobenzaprine 10 mg tablet RxNorm: 683523 TAKE ONE TA BLET BY MOUTH THREE TIMES A DAY NEEDED 09/27/2019 11/20/2019 Inactive ProAir HFA 90 mcg/actuation aerosol inhaler RxNorm: 921579 INHALE ONE PUFF BY MOUTH EVERY 4 HOURS FOR WHEEZING OR FOR SHORTNESS OF BREATH 09/25/2019 No Stop Date Active furosemide 40 mg tablet RxNorm: 314092 1 Tablet(s) Oral QAM as needed 09/25/2019 09/25/2019 Inactive Relistor 150 mg tablet RxNorm: 1117951 TAKE THREE TABLETS BY BENOIT TH DAILY 09/25/2019 10/24/2019 Inactive oxycodone 15 mg tablet RxNorm: 0813374 1 Tablet(s) PO QID as nee ded for pain 09/21/2019 10/24/2019 Inactive Duragesic 100 mcg/hr transdermal patch RxNorm: 536735 2 Application TD Q48H for pain 09/19/2019 10/17/2019 Inactive Daliresp 500 mcg tablet RxNorm: 8649282 1 Tablet(s) Oral QD 019 03/08/2020 Active potassium chloride ER 20 mEq tablet,extended release RxNorm: 256527 TAKE ONE TABLET BY MOUTH DAILY 07/25/2019 01/20/2020 Active Relistor 150 mg tablet RxNorm: 0431560 TAKE THREE TABLETS BY BENOIT TH DAILY 07/25/2019 07/30/2019 Inactive cyclobenzaprine 10 mg tablet RxNorm: 585541 TAKE ONE TA BLET BY MOUTH THREE TIMES A DAY NEEDED 07/25/2019 09/22/2019 Inactive fluoxetine 40 mg capsule RxNorm: 752050 TAKE ONE CAPSULE BY BENOIT TH EVERY MORNING 07/11/2019 10/24/2019 Inactive Medrol (Aníbal) 4 mg tablets in a dose pack RxNorm: 993442 6 Tablet(s) PO QD --then as directed 07/10/2019 07/15/2019 Inactive omeprazole 40 mg capsule,delayed release RxNorm: 222458 1 Capsule(s) PO QD for stomach TAKE ONE CAPSULE BY MOUTH DAILY 07/10/2019 10/24/2019 Inactive Augmentin 875 mg-125 mg tablet RxNorm: 278753 1 Tablet(s) PO BID 07/16/2019 Inactive Trulicity 0.75 mg/0.5 mL subcutaneous pen injector RxNorm: 1 754741 0.75 Milliliter(s) SQ weekly 07/05/2019 10/24/2019 Inactive Compazine 10 mg tablet RxNorm: 687740 TAKE ONE TABLET B Y MOUTH FOUR TIMES A DAY NEEDED FOR NAUSEA 06/20/2019 07/19/2019 Inactive ProAir HFA 90 mcg/actuation aerosol inhaler RxNorm: 940051 INHALE ONE PUFF BY MOUTH EVERY 4 HOURS FOR WHEEZING OR FOR SHORTNESS OF BREATH 06/20/2019 06/23/2019 Inactive Daliresp 500 mcg tablet RxNorm: 0484975 TAKE ONE TABLET BY MOUTH DAILY 06/12/2019 09/10/2019 Inactive aoczssbg-pcnqsyoju-rawjdpwri 3.5 mg/mL-10,000 unit/mL- 1 % ear solution RxNorm: 623285 4 Drop(s) otic (ear) TID to left ear 06/05/2019 10/24/2019 Inac tive furosemide 40 mg tablet RxNorm: 300686 TAKE ONE TABLET BY MOUTH EVERY MORNING 05/26/2019 07/09/2019 Inactive Duragesic 100 mcg/hr transdermal patch RxNorm: 525097 2 Application TD Q48H for pain 05/16/2019 06/14/2019 Inactive oxycodone 15 mg tablet RxNorm: 8448169 1 Tablet(s) PO QID as nee ded for pain 05/10/2019 09/20/2019 Inactive doxycycline hyclate 100 mg capsule RxNorm: 4137700 1 Capsule(s) PO BID 05/03/2019 05/12/2019 Inactive prednisone 20 mg tablet RxNorm: 596836 1 Tablet(s) PO T ID for 3 days then 1 po BID for 3 days then one daily for 3 days 05/03/2019 07/11/2019 Inactiv e Ozempic 0.25 mg or 0.5 mg (2 mg/1.5 mL) subcutaneous p en injector RxNorm: 9600913 0.5 Milligram(s) SQ QW 05/03/2019 07/09/2019 Inactive fluconazole 100 mg tablet RxNorm: 397762 1 Tablet(s) PO QD 05/03/20 19 05/07/2019 Inactive Premarin 0.45 mg tablet RxNorm: 652770 TAKE ONE TABLET BY MOUTH DAILY 05/03/2019 10/23/2019 Inactive potassium chloride ER 20 mEq tablet,extended release RxNorm: 171436 1 Tablet(s) PO QD 04/27/2019 07/25/2019 Inactive potassium chloride ER 20 mEq tablet,extended release RxNorm: 780408 1 Tablet(s) PO QD 04/25/2019 04/26/2019 Inactive Compazine 10 mg tablet RxNorm: 535774 1 Tablet(s) PO QID as nee ded for nausea 04/25/2019 05/04/2019 Inactive ProAir HFA 90 mcg/actuation aerosol inhaler RxNorm: 928293 INHALE ONE PUFF BY MOUTH EVERY 4 HOURS FOR WHEEZING OR FOR SHORTNESS OF BREATH 04/12/2019 06/10/2019 Inactive Medrol (Aníbal) 4 mg tablets in a dose pack RxNorm: 886151 6 Tablet(s) PO QD --then as directed 04/11/2019 04/16/2019 Inactive Symbicort 160 mcg-4.5 mcg/actuation HFA aerosol inhaler RxNo rm: 3307169 2 Puff(s) INH BID 04/10/2019 10/06/2019 Inactive levothyroxine 50 mcg tablet RxNorm: 832590 1 Tablet(s) PO QD 201810/24/2019 Inactive gabapentin 300 mg capsule RxNorm: 496710 1 Capsule(s) PO BID 201810/02/2019 Inactive Symbicort 160 mcg-4.5 mcg/actuation HFA aerosol inhaler RxNo rm: 5580167 2 Puff(s) INH BID 04/06/2019 04/09/2019 Inactive oxycodone 15 mg tablet RxNorm: 8003451 1 Tablet(s) PO QID as nee ded for pain 04/05/2019 05/09/2019 Inactive levothyroxine 50 mcg tablet RxNorm: 174389 1 Tablet(s) PO QD 201804/09/2019 Inactive furosemide 40 mg tablet RxNorm: 858970 TAKE ONE TABLET BY MOUTH EVERY MORNING 03/21/2019 04/19/2019 Inactive levothyroxine 50 mcg tablet RxNorm: 217303 TAKE ONE TABLET BY M OUTH DAILY 03/21/2019 03/27/2019 Inactive Duragesic 100 mcg/hr transdermal patch RxNorm: 277954 2 Application TD Q48H for pain 03/13/2019 04/11/2019 Inactive oxycodone 15 mg tablet RxNorm: 0154676 1 Tablet(s) PO QID as nee ded for pain 03/06/2019 04/04/2019 Inactive Relistor 150 mg tablet RxNorm: 0948177 3 Tablet(s) PO QD 02/28/2019 0 05/28/2019 Inactive cyclobenzaprine 10 mg tablet RxNorm: 069892 1 Tablet(s) PO TID as needed 02/28/2019 05/28/2019 Inactive phentermine 37.5 mg tablet RxNorm: 488884 1 Tablet(s) PO QAM 201803/15/2019 Inactive Duragesic 100 mcg/hr transdermal patch RxNorm: 640650 2 Application TD Q48H for pain 02/09/2019 03/10/2019 Inactive Daliresp 500 mcg tablet RxNorm: 7644012 TAKE ONE TABLET BY MOUTH DAILY 01/31/2019 05/30/2019 Inactive Premarin 0.45 mg tablet RxNorm: 699668 1 Tablet(s) PO QD 01/31/2019 0 04/30/2019 Inactive fluoxetine 40 mg capsule RxNorm: 137801 Capsule(s) TAKE ONE CAPSULE BY MOUTH EVERY MORNING 01/31/2019 04/30/2019 Inactive levothyroxine 50 mcg tablet RxNorm: 486506 1 Tablet(s) PO QD 201804/10/2019 Inactive follow up in 3 weeks levothyroxine 50 mcg tablet RxNorm: 152272 1 Tablet(s) PO QD 201801/25/2019 Inactive follow up in 3 weeks potassium chloride ER 20 mEq tablet,extended release RxNorm: 183664 2 Tablet(s) PO BID 01/23/2019 02/14/2019 Inactive Synthroid 50 mcg tablet RxNorm: 024037 TAKE ONE TABLET BY MOUTH DAILY 01/16/2019 10/24/2019 Inactive potassium chloride ER 20 mEq tablet,extended release RxNorm: 153048 2 Tablet(s) PO BID 01/04/2019 01/22/2019 Inactive ProAir HFA 90 mcg/actuation aerosol inhaler RxNorm: 137636 INHALE ONE PUFF BY MOUTH EVERY 4 HOURS FOR WHEEZING OR SHORTNESS OF BREATH 01/04/201902/20 Inactive Request already responded to by other me ans (e.g. phone or fax) ProAir HFA 90 mcg/actuation aerosol inhaler RxNorm: 1133265 INHALE ONE PUFF BY MOUTH EVERY 4 HOURS FOR WHEEZING OR SHORTNESS OF BREATH 01/02/201912/23 Inactive gabapentin 300 mg capsule RxNorm: 444334 TAKE ONE CAPSULE BY MO UT TWICE A DAY 12/30/2018 04/06/2019 Inactive furosemide 40 mg tablet RxNorm: 486573 1 Tablet(s) PO QAM 12/26/2018 02/23/2019 Inactive Compazine 10 mg tablet RxNorm: 175413 1 Tablet(s) PO QID as nee ded for nausea 12/07/2018 12/16/2018 Inactive metolazone 2.5 mg tablet RxNorm: 581770 TAKE ONE TABLET BY MOUT H EVERY MORNING 12/05/2018 01/03/2019 Inactive metformin ER 500 mg tablet,extended release 24 hr RxNorm: 86 0975 TAKE ONE TABLET BY MOUTH DAILY 12/05/2018 04/10/2019 Inactive Synthroid 50 mcg tablet RxNorm: 173442 1 Tablet(s) PO QD 11/25/2018 0 01/03/2019 Inactive DC any other synthroid strengths. Should be 50mcg only cyclobenzaprine 10 mg tablet RxNorm: 572596 TAKE ONE TA BLET BY MOUTH THREE TIMES A DAY NEEDED 11/09/2018 02/06/2019 Inactive metolazone 2.5 mg tablet RxNorm: 579726 1 Tablet(s) PO QAM repl aces 5mg dose 11/02/2018 12/01/2018 Inactive potassium chloride ER 20 mEq tablet,extended release RxNorm: 949313 2 Tablet(s) PO QD 2018 01/02/2019 Inactive Compazine 10 mg tablet RxNorm: 172364 1 Tablet(s) PO QID as nee ded for nausea 10/18/2018 12/07/2018 Inactive furosemide 40 mg tablet RxNorm: 299923 1 Tablet(s) PO QAM 10/12/2018 12/10/2018 Inactive ondansetron 8 mg disintegrating tablet RxNorm: 152946 1 Tablet(s) PO Q6H as needed 10/11/2018 10/17/2018 Inactive scopolamine 1 mg over 3 days transdermal patch RxNorm: 09715 2 1 Application TD behind ear. Take off after three days 10/11/2018 01/02/2019 Inactive furosemide 40 mg tablet RxNorm: 961355 1 Tablet(s) PO QAM 10/10/2018 12/26/2018 Inactive metolazone 5 mg tablet RxNorm: 083369 1 Tablet(s) PO QAM 10/06/2018 1 01/03/2018 Inactive metolazone 5 mg tablet RxNorm: 244969 1 Tablet(s) PO QAM 10/06/2018 1 12/05/2017 Inactive Xtampza ER 36 mg capsule sprinkle RxNorm: 4270602 1 Capsule(s) P O BID 10/05/2018 01/02/2019 Inactive Xtampza ER 36 mg capsule sprinkle RxNorm: 7458913 1 Capsule(s) P O BID 10/05/2018 02/12/2019 Inactive omeprazole 40 mg capsule,delayed release RxNorm: 697651 TAKE ONE CAPSULE BY MOUTH DAILY 10/03/2018 12/31/2018 Inactive Duragesic 100 mcg/hr transdermal patch RxNorm: 554940 2 Application TD Q48H for pain 09/30/2018 10/29/2018 Inactive Synthroid 50 mcg tablet RxNorm: 887395 1 Tablet(s) PO QD 09/29/2018 0 11/25/2018 Inactive DC any other synthroid strengths. Should be 50mcg only Synthroid 50 mcg tablet RxNorm: 297387 1 Tablet(s) PO QD 09/29/2018 1 11/28/2017 Inactive furosemide 40 mg tablet RxNorm: 089581 2 Tablet(s) PO Q AM for 1 week then every other day for 2 weeks 09/27/2018 10/12/2018 Inactive fluoxetine 40 mg capsule RxNorm: 005924 2 Capsule(s) PO QD 09/27/20 18 10/17/2018 Inactive potassium chloride ER 20 mEq tablet,extended release RxNorm: 502541 2 Tablet(s) PO QD for 1 week then every other day for 2 weeks 09/27/2018 2018 Inactive ProAir HFA 90 mcg/actuation aerosol inhaler RxNorm: 1842894 INHALE ONE PUFF BY MOUTH EVERY 4 HOURS FOR WHEEZING OR SHORTNESS OF BREATH 09/26/201811/23 Inactive Synthroid 75 mcg tablet RxNorm: 097894 1 Tablet(s) PO QD 09/09/2018 1 Inactive Synthroid 75 mcg tablet RxNorm: 070288 1 Tablet(s) PO QD 09/09/2018 1 11/28/2017 Inactive furosemide 40 mg tablet RxNorm: 662146 1 Tablet(s) PO QD 09/06/2018 1 Inactive potassium chloride ER 20 mEq tablet,extended release RxNorm: 593299 1 Tablet(s) PO QD 09/06/2018 09/19/2018 Inactive Duragesic 100 mcg/hr transdermal patch RxNorm: 012023 2 Application TD Q48H for pain 08/30/2018 09/28/2018 Inactive gabapentin 300 mg capsule RxNorm: 910933 TAKE ONE CAPSULE BY MO UTH TWICE A DAY 08/23/2018 12/20/2018 Inactive Daliresp 500 mcg tablet RxNorm: 3668448 TAKE ONE TABLET BY MOUTH DAILY 08/23/2018 01/19/2019 Inactive Pulmicort 1 mg/2 mL suspension for nebulization RxNorm: 6168 19 USE ONE VIAL VIA NEBULIZER BY MOUTH TWICE A DAY 08/23/2018 07/11/2019 Inactive Synthroid 88 mcg tablet RxNorm: 574813 1 Tablet(s) PO QD 08/19/2018 1 Inactive Medrol (Aníbal) 4 mg tablets in a dose pack RxNorm: 834186 Tablet(s) PO take as directed 08/16/2018 09/05/2018 Inactive Relistor 150 mg tablet RxNorm: 1755434 3 Tablet(s) PO QD 08/16/2018 1 Inactive Zithromax Z-Aníbal 250 mg tablet RxNorm: 303024 Tablet(s) PO take as directed 08/16/2018 09/05/2018 Inactive cyclobenzaprine 10 mg tablet RxNorm: 977581 1 Tablet(s) PO TID as needed 08/16/2018 11/08/2018 Inactive Synthroid 88 mcg tablet RxNorm: 516078 1 Tablet(s) PO Q D NEEDS UPDATED LABS BEFORE FURTHER REFILLS 08/08/2018 08/19/2018 Inactive Premarin 0.45 mg tablet RxNorm: 646416 1 Tablet(s) PO QD 08/03/2018 0 01/31/2019 Inactive fluoxetine 20 mg capsule RxNorm: 502366 TAKE ONE CAPSULE BY BENOIT TH DAILY 08/03/2018 09/26/2018 Inactive Xtampza ER 36 mg capsule sprinkle RxNorm: 4959893 1 Capsule(s) P O BID 08/03/2018 09/01/2018 Inactive metformin ER 500 mg tablet,extended release 24 hr RxNorm: 86 0975 1 Tablet(s) PO QD 08/03/2018 10/31/2018 Inactive Symbicort 160 mcg-4.5 mcg/actuation HFA aerosol inhaler RxNo rm: 6667260 2 Puff(s) INH BID 08/03/2018 01/29/2019 Inactive Duragesic 100 mcg/hr transdermal patch RxNorm: 499939 2 Application TD Q48H for pain 07/29/2018 08/27/2018 Inactive ProAir HFA 90 mcg/actuation aerosol inhaler RxNorm: 404139 INHALE TWO PUFFS BY MOUTH EVERY 4 HOURS FOR WHEEZING OR SHORTNESS OF BREATH 07/27/201802/2018 Inactive Relistor 150 mg tablet RxNorm: 3067805 3 Tablet(s) PO QD 07/20/2018 0 08/15/2018 Inactive metformin ER 500 mg tablet,extended release 24 hr RxNorm: 86 0975 TAKE ONE TABLET BY MOUTH DAILY 07/08/2018 08/02/2018 Inactive fluoxetine 40 mg capsule RxNorm: 389184 TAKE ONE CAPSULE BY BENOIT TH EVERY MORNING 07/08/2018 10/05/2018 Inactive Xtampza ER 18 mg capsule sprinkle RxNorm: 4230050 1 Capsule(s) P O BID 07/08/2018 08/02/2018 Inactive Relistor 150 mg tablet RxNorm: 5823182 3 Tablet(s) PO QD 07/08/2018 0 07/12/2018 Inactive Synthroid 88 mcg tablet RxNorm: 006289 1 Tablet(s) PO Q D NEEDS UPDATED LABS BEFORE FURTHER REFILLS 06/23/2018 07/07/2018 Inactive fluoxetine 40 mg capsule RxNorm: 554073 TAKE ONE CAPSULE BY BENOIT TH EVERY MORNING 06/15/2018 09/26/2018 Inactive orphenadrine citrate ER 100 mg tablet,extended release RxNor m: 921739 TAKE ONE TABLET BY MOUTH TWICE A DAY FOR MUSCLE SPASM 06/15/2018 08/15/2018 Renu ctive Duragesic 100 mcg/hr transdermal patch RxNorm: 452439 2 Application TD Q48H for pain 05/30/2018 06/28/2018 Inactive ProAir HFA 90 mcg/actuation aerosol inhaler RxNorm: 064371 INHALE TWO PUFFS BY MOUTH EVERY 4 HOURS FOR WHEEZING OR SHORTNESS OF BREATH 05/19/201803/2018 Inactive Chantix Continuing Month Box 1 mg tablet RxNorm: 297522 TAKE ONE TABLET BY MOUTH TWICE A DAY 05/19/2018 08/15/2018 Inactive oxycodone 10 mg tablet RxNorm: 2076945 1-2 Tablet(s) PO QID as n eeded for pain 05/19/2018 07/07/2018 Inactive gabapentin 300 mg capsule RxNorm: 011452 TAKE ONE CAPSULE BY MO [facility] TWICE A DAY 05/18/2018 07/16/2018 Inactive ProAir HFA 90 mcg/actuation aerosol inhaler RxNorm: 837487 INHALE TWO PUFFS BY MOUTH EVERY 4 HOURS FOR WHEEZING OR SHORTNESS OF BREATH 05/04/201804/23 Inactive Augmentin 500 mg-125 mg tablet RxNorm: 258464 1 Tablet(s) PO BID 05/03/2018 Inactive oxycodone 10 mg tablet RxNorm: 4841122 1-2 Tablet(s) PO QID as n eeded for pain 04/21/2018 05/18/2018 Inactive Synthroid 88 mcg tablet RxNorm: 785476 1 Tablet(s) PO QD 04/15/2018 0 08/08/2018 Inactive Symbicort 160 mcg-4.5 mcg/actuation HFA aerosol inhaler RxNo rm: 1835612 2 Puff(s) INH BID 04/15/2018 04/10/2019 Inactive Premarin 0.45 mg tablet RxNorm: 097737 1 Tablet(s) PO QD 04/15/2018 0 08/03/2018 Inactive ProAir HFA 90 mcg/actuation aerosol inhaler RxNorm: 267730 2 Puff(s) INH Q4H prn for wheezing or shortness of breath 04/15/2018 05/03/2018 Inactive metformin ER 500 mg tablet,extended release 24 hr RxNorm: 86 0975 1 Tablet(s) PO QD 04/11/2018 07/07/2018 Inactive omeprazole 40 mg capsule,delayed release RxNorm: 961307 TAKE ONE CAPSULE BY MOUTH DAILY 04/10/2018 06/08/2018 Inactive Synthroid 88 mcg tablet RxNorm: 094348 1 Tablet(s) PO QD 04/04/2018 0 04/14/2018 Inactive Synthroid 88 mcg tablet RxNorm: 645280 1 Tablet(s) PO QD 04/04/2018 0 04/03/2018 Inactive orphenadrine citrate ER 100 mg tablet,extended release RxNor m: 916827 1 Tablet(s) PO BID for muscle spasm 04/04/2018 05/03/2018 Inactive metformin ER 500 mg tablet,extended release 24 hr RxNorm: 86 0975 1 Tablet(s) PO QD NEEDS UPDATED LABS 03/31/2018 04/11/2018 Inactive doxycycline hyclate 100 mg capsule RxNorm: 4642395 1 Capsule(s) PO BID 03/31/2018 04/09/2018 Inactive prednisone 20 mg tablet RxNorm: 110156 3 Tablet(s) PO T ID for 3 days then 1 po BID for 3 days then one daily for 3 days 03/31/2018 07/06/2018 Inactiv e Chantix Continuing Month Box 1 mg tablet RxNorm: 894794 TAKE ONE TABLET BY MOUTH TWICE A DAY 03/25/2018 03/30/2018 Inactive oxycodone 10 mg tablet RxNorm: 8963073 1-2 Tablet(s) PO QID as n eeded for pain 03/21/2018 04/20/2018 Inactive Daliresp 500 mcg tablet RxNorm: 4639176 1 Tablet(s) PO QD 03/15/2018 08/22/2018 Inactive metformin ER 500 mg tablet,extended release 24 hr RxNorm: 86 0975 1 Tablet(s) PO QD NEEDS UPDATED LABS 03/14/2018 03/31/2018 Inactive nystatin 100,000 unit/mL oral suspension RxNorm: 752883 5 Chio liter(s) PO QID 03/02/2018 03/15/2018 Inactive nystatin 100,000 unit/mL oral suspension RxNorm: 121529 5 Chio liter(s) PO QID 03/02/2018 03/01/2018 Inactive oxycodone 10 mg tablet RxNorm: 0076883 1-2 Tablet(s) PO QID as n eeded for pain 02/16/2018 03/20/2018 Inactive fluoxetine 20 mg capsule RxNorm: 156944 1 Capsule(s) PO QD 02/15/20 18 08/02/2018 Inactive metformin ER 500 mg tablet,extended release 24 hr RxNorm: 86 0975 1 Tablet(s) PO QD Needs updated labs 02/14/2018 03/14/2018 Inactive cefdinir 300 mg capsule RxNorm: 795444 1 Capsule(s) PO BID 01/27/20 18 02/04/2018 Inactive orphenadrine citrate ER 100 mg tablet,extended release RxNor m: 787058 1 Tablet(s) PO BID for muscle spasm 01/26/2018 04/04/2018 Inactive gabapentin 300 mg capsule RxNorm: 323946 1 Capsule(s) PO BID 201704/17/2018 Inactive oxycodone 10 mg tablet RxNorm: 8641428 1-2 Tablet(s) PO QID as n eeded for pain 01/17/2018 02/15/2018 Inactive Duragesic 100 mcg/hr transdermal patch RxNorm: 331856 2 Application TD Q48H for pain 01/17/2018 02/15/2018 Inactive gabapentin 300 mg capsule RxNorm: 698712 TAKE ONE CAPSULE BY MO UTH TWICE A DAY 12/20/2017 01/18/2018 Inactive fluoxetine 40 mg capsule RxNorm: 995454 TAKE ONE CAPSULE BY BENOIT TH EVERY MORNING 12/15/2017 03/14/2018 Inactive OneTouch Ultra Test strips RxNorm: TEST DAILY 11/04/2017 02/01/2018 Inactive gabapentin 300 mg capsule RxNorm: 139677 1 Capsule(s) P O TID replaces BID dosing 10/26/2017 02/22/2018 Inactive oxycodone 10 mg tablet RxNorm: 1842177 1-2 Tablet(s) PO QID as n eeded for pain 10/18/2017 01/16/2018 Inactive Duragesic 100 mcg/hr transdermal patch RxNorm: 515528 2 Application TD Q48H for pain 10/18/2017 11/16/2017 Inactive gabapentin 300 mg capsule RxNorm: 061972 1 Capsule(s) PO BID 201610/25/2017 Inactive Abilify 5 mg tablet RxNorm: 567817 1 Tablet(s) PO QAM 09/23/201702/2017 Inactive gabapentin 300 mg capsule RxNorm: 175460 1 Capsule(s) PO BID 201610/17/2017 Inactive oxycodone 10 mg tablet RxNorm: 1588420 1-2 Tablet(s) PO QID as n eeded for pain 09/15/2017 10/17/2017 Inactive Duragesic 100 mcg/hr transdermal patch RxNorm: 865807 2 Application TD Q48H for pain 09/15/2017 10/14/2017 Inactive Duragesic 100 mcg/hr transdermal patch RxNorm: 164301 2 Application TD Q48H for pain 09/15/2017 10/24/2019 Inactive oxycodone 10 mg tablet RxNorm: 4856418 1-2 Tablet(s) PO QID as n eeded for pain 09/15/2017 08/15/2018 Inactive Daliresp 500 mcg tablet RxNorm: 6582183 1 Tablet(s) PO QD 09/06/2017 03/15/2018 Inactive Ventolin HFA 90 mcg/actuation aerosol inhaler RxNorm: 289658 2 Puff(s) INH Q4H as needed 09/02/2017 05/19/2018 Inactive oxycodone 10 mg tablet RxNorm: 3138665 1-2 Tablet(s) PO QID as n eeded for pain 08/17/2017 09/14/2017 Inactive Duragesic 100 mcg/hr transdermal patch RxNorm: 131490 2 Application TD Q48H for pain 08/17/2017 09/14/2017 Inactive fluoxetine 40 mg capsule RxNorm: 051121 Capsule(s) TAKE ONE CAPSULE BY MOUTH EVERY MORNING 08/17/2017 12/14/2017 Inactive Pulmicort 1 mg/2 mL suspension for nebulization RxNorm: 6168 19 1 Unit Dose INH BID Dx: COPD (J44.9) 08/16/2017 08/22/2018 Inactive gabapentin 300 mg capsule RxNorm: 235476 1 Capsule(s) PO QHS 201610/18/2017 Inactive fluoxetine 20 mg capsule RxNorm: 399730 1 Capsule(s) PO QD 08/12/20 17 02/14/2018 Inactive Abilify 2 mg tablet RxNorm: 876348 1 Tablet(s) PO QD TA KE ONE TABLET BY MOUTH DAILY 08/12/2017 10/25/2017 Inactive metformin ER 500 mg tablet,extended release 24 hr RxNorm: 86 0975 1 Tablet(s) PO QD 08/10/2017 02/14/2018 Inactive Synthroid 112 mcg tablet RxNorm: 157999 1 Tablet(s) PO QD 08/10/2017 04/15/2018 Inactive oxycodone 10 mg tablet RxNorm: 4170814 1-2 Tablet(s) PO QID as n eeded for pain 07/19/2017 08/16/2017 Inactive Duragesic 100 mcg/hr transdermal patch RxNorm: 587598 2 Application TD Q48H for pain 07/19/2017 08/16/2017 Inactive Ventolin HFA 90 mcg/actuation aerosol inhaler RxNorm: 034457 2 Puff(s) INH Q4H as needed 07/12/2017 09/02/2017 Inactive Abilify 2 mg tablet RxNorm: 012956 1 Tablet(s) PO QD TA KE ONE TABLET BY MOUTH DAILY 07/06/2017 08/11/2017 Inactive gabapentin 800 mg tablet RxNorm: 762152 1 Tablet(s) PO TID 06/22/2007/05/2017 Inactive Chantix Starting Month Box 0.5 mg (11)-1 mg (42) table ts in dose pack RxNorm: 500154 TAKE BY MOUTH INSTRUCTED - PER PACKAGE INSTRUCTIONS 06/0707/04/2017 Inactive Ventolin HFA 90 mcg/actuation aerosol inhaler RxNorm: 458732 2 Puff(s) INH Q4H as needed 05/26/2017 07/12/2017 Inactive Duragesic 100 mcg/hr transdermal patch RxNorm: 683738 2 Application TD Q48H for pain 05/19/2017 06/17/2017 Inactive oxycodone 10 mg tablet RxNorm: 9248745 1-2 Tablet(s) PO QID as n eeded for pain 05/19/2017 07/18/2017 Inactive Abilify 2 mg tablet RxNorm: 794299 TAKE ONE TABLET BY MOUTH DAILY 0 05/10/2017 07/05/2017 Inactive Synthroid 112 mcg tablet RxNorm: 698693 1 Tablet(s) PO QD 05/06/2017 08/10/2017 Inactive metformin ER 500 mg tablet,extended release 24 hr RxNorm: 86 0975 1 Tablet(s) PO QD 05/06/2017 08/10/2017 Inactive Topamax 100 mg tablet RxNorm: 419908 1 Tablet(s) PO QHS 05/06/2017 Inactive Premarin 0.45 mg tablet RxNorm: 409356 1 Tablet(s) PO QD 05/06/2017 0 04/15/2018 Inactive orphenadrine citrate ER 100 mg tablet,extended release RxNor m: 768879 1 Tablet(s) PO TID for muscle spasm--replaces methocarbamol 04/29/2017 Inactive oxycodone 10 mg tablet RxNorm: 0149939 1-2 Tablet(s) PO QID as n eeded for pain 04/21/2017 05/18/2017 Inactive Duragesic 100 mcg/hr transdermal patch RxNorm: 862486 2 Application TD Q48H for pain 04/21/2017 05/18/2017 Inactive fluoxetine 40 mg capsule RxNorm: 726865 Capsule(s) TAKE ONE CAPSULE BY MOUTH EVERY MORNING 04/20/2017 08/17/2017 Inactive Ventolin HFA 90 mcg/actuation aerosol inhaler RxNorm: 781925 2 Puff(s) INH Q4H as needed 04/05/2017 05/26/2017 Inactive Symbicort 160 mcg-4.5 mcg/actuation HFA aerosol inhaler RxNo rm: 6891455 2 Puff(s) INH BID 03/30/2017 04/15/2018 Inactive Spiriva with HandiHaler 18 mcg and inhalation capsules RxNor m: 793604 1 Capsule(s) INH QD USING HANDIHALER 03/30/2017 02/12/2019 Inactive Duragesic 100 mcg/hr transdermal patch RxNorm: 723129 2 Application TD Q48H for pain 03/18/2017 04/16/2017 Inactive oxycodone 10 mg tablet RxNorm: 2917734 1-2 Tablet(s) PO QID as n eeded for pain 03/18/2017 04/20/2017 Inactive metformin ER 500 mg tablet,extended release 24 hr RxNorm: 86 0975 Tablet(s) TAKE ONE TABLET BY MOUTH DAILY 03/01/2017 05/06/2017 Inactive Premarin 0.45 mg tablet RxNorm: 203028 Tablet(s) TAKE ONE TABLE T BY MOUTH DAILY 03/01/2017 05/06/2017 Inactive Synthroid 112 mcg tablet RxNorm: 544110 Tablet(s) TAKE ONE TABLET BY MOUTH DAILY 03/01/2017 05/06/2017 Inactive Daliresp 500 mcg tablet RxNorm: 1733423 1 Tablet(s) PO QD 03/01/2017 09/06/2017 Inactive 16.2 mg-0.1037 mg-0.0194 mg tablet RxNorm: 1035082 Tablet(s) PO PRN for gas and cramping 02/23/2017 04/28/2017 Inactive TAKE TWO TABLET S BY MOUTH THREE TIMES A DAY NEEDED FOR GAS AND CRAMPING gabapentin 800 mg tablet RxNorm: 742782 1 Tablet(s) PO TID repl aces 600mg 02/23/2017 04/28/2017 Inactive Duragesic 100 mcg/hr transdermal patch RxNorm: 802836 2 Application TD Q48H for pain 02/17/2017 03/17/2017 Inactive fluoxetine 20 mg capsule RxNorm: 440869 1 Capsule(s) PO QD 02/18/2008/12/2017 Inactive oxycodone 20 mg tablet RxNorm: 4665427 1 Tablet(s) PO QID as nee ded for pain 02/17/2017 03/17/2017 Inactive Ventolin HFA 90 mcg/actuation aerosol inhaler RxNorm: 754925 INHALE TWO PUFFS BY MOUTH EVERY 4 HOURS NEEDED 02/15/2017 04/05/2017 Inactive Silvadene 1 % topical cream RxNorm: 774028 1 Application TOP BI D to burn area 02/01/2017 09/22/2017 Inactive Topamax 100 mg tablet RxNorm: 431852 TAKE ONE TABLET BY MOUTH EVERY NIGHT AT BEDTIME 01/29/2017 05/06/2017 Inactive Chantix Starting Month Box 0.5 mg (11)-1 mg (42) table ts in dose pack RxNorm: 291415 Tablet(s) PO as directed 01/29/2017 06/01/2017 Inactive Abilify 2 mg tablet RxNorm: 171768 TAKE ONE TABLET BY MOUTH DAILY 0 01/26/2017 04/25/2017 Inactive Chantix Starting Month Box 0.5 mg (11)-1 mg (42) table ts in dose pack RxNorm: 853952 Tablet(s) PO as directed 01/20/2017 01/28/2017 Inactive gabapentin 600 mg tablet RxNorm: 271232 1 Tablet(s) PO TID 01/21/20 17 02/22/2017 Inactive Chantix Continuing Month Box 1 mg tablet RxNorm: 144480 1 Table t(s) PO BID 12/31/2016 06/01/2017 Inactive Spiriva with HandiHaler 18 mcg and inhalation capsules RxNor m: 132714 INHALE THE ENTIRE CONTENTS OF 1 CAPSULE ONCE A DAY USING HANDIHALER 12/31/201607/2017 Inactive Synthroid 112 mcg tablet RxNorm: 975967 TAKE ONE TABLET BY MOUT H DAILY 12/30/2016 03/01/2017 Inactive metformin ER 500 mg tablet,extended release 24 hr RxNorm: 86 0975 TAKE ONE TABLET BY MOUTH DAILY 12/30/2016 03/01/2017 Inactive Premarin 0.45 mg tablet RxNorm: 090568 TAKE ONE TABLET BY MOUTH DAILY 12/30/2016 03/01/2017 Inactive omeprazole 40 mg capsule,delayed release RxNorm: 072596 TAKE ONE CAPSULE BY MOUTH DAILY 12/30/2016 01/25/2018 Inactive Ventolin HFA 90 mcg/actuation aerosol inhaler RxNorm: 486499 INHALE TWO PUFFS BY MOUTH EVERY 4 HOURS NEEDED 12/28/2016 02/13/2017 Inactive fluoxetine 40 mg capsule RxNorm: 673048 TAKE ONE CAPSULE BY BENOIT TH EVERY MORNING 12/15/2016 04/20/2017 Inactive Chantix Continuing Month Box 1 mg tablet RxNorm: 733964 TAKE ONE TABLET BY MOUTH TWICE A DAY 12/04/2016 12/31/2016 Inactive doxycycline hyclate 100 mg capsule RxNorm: 2183839 1 Capsule(s) PO BID 12/01/2016 12/07/2016 Inactive Levaquin 750 mg tablet RxNorm: 777054 1 Tablet(s) PO QD 12/01/2016 Inactive Abilify 2 mg tablet RxNorm: 787749 TAKE ONE TABLET BY MOUTH DAILY 0 11/25/2016 11/30/2016 Inactive Ventolin HFA 90 mcg/actuation aerosol inhaler RxNorm: 001585 INHALE TWO PUFFS BY MOUTH EVERY 4 HOURS NEEDED 11/02/2016 12/19/2016 Inactive Chantix Continuing Month Box 1 mg tablet RxNorm: 859537 Tablet(s) PO as directed 10/30/2016 12/03/2016 Inactive Symbicort 160 mcg-4.5 mcg/actuation HFA aerosol inhaler RxNo rm: 0601435 INHALE TWO PUFFS TWO TIMES A DAY 10/30/2016 03/30/2017 Inactive Abilify 2 mg tablet RxNorm: 218937 1 Tablet(s) PO QD 10/27/201611/24 Inactive amoxicillin 500 mg capsule RxNorm: 131852 1 Capsule(s) PO TID 10/1410/23/2016 Inactive amoxicillin 500 mg capsule RxNorm: 440120 1 Capsule(s) PO TID 10/1410/13/2016 Inactive Synthroid 112 mcg tablet RxNorm: 099309 TAKE ONE TABLET BY MOUT H DAILY 09/28/2016 12/29/2016 Inactive Topamax 100 mg tablet RxNorm: 465356 TAKE ONE TABLET BY MOUTH EVERY NIGHT AT BEDTIME 09/28/2016 01/28/2017 Inactive Premarin 0.45 mg tablet RxNorm: 901239 TAKE ONE TABLET BY MOUTH DAILY 09/28/2016 12/29/2016 Inactive metformin ER 500 mg tablet,extended release 24 hr RxNorm: 86 0975 TAKE ONE TABLET BY MOUTH DAILY 09/28/2016 12/29/2016 Inactive Ventolin HFA 90 mcg/actuation aerosol inhaler RxNorm: 902420 INHALE TWO PUFFS BY MOUTH EVERY 4 HOURS NEEDED 09/22/2016 10/23/2016 Inactive Pulmicort 1 mg/2 mL suspension for nebulization RxNorm: 6168 19 1 Unit Dose INH BID Dx: COPD (J44.9) 09/10/2016 08/16/2017 Inactive Pulmicort 1 mg/2 mL suspension for nebulization RxNorm: 6168 19 1 Unit Dose INH BID 09/10/2016 09/09/2016 Inactive Brovana 15 mcg/2 mL solution for nebulization RxNorm: 968475 1 Unit Dose INH BID Dx: COPD (J44.9) 09/10/2016 01/25/2018 Inactive Brovana 15 mcg/2 mL solution for nebulization RxNorm: 920126 1 Unit Dose INH BID 09/10/2016 09/09/2016 Inactive ipratropium-albuterol 0.5 mg-3 mg(2.5 mg base)/3 mL ne bulization soln RxNorm: 6712440 1 Unit Dose INH Q4H as needed Dx: COPD (J44.9) 09/10/2016 0 02/12/2019 Inactive orphenadrine citrate ER 100 mg tablet,extended release RxNor m: 505139 1 Tablet(s) PO BID for muscle spasm--replaces methocarbamol 09/09/2016 Inactive Chantix Continuing Month Box 1 mg tablet RxNorm: 573304 Tablet(s) PO as directed 09/09/2016 10/30/2016 Inactive orphenadrine citrate ER 100 mg tablet,extended release RxNor m: 392161 1 Tablet(s) PO BID for muscle spasm 09/09/2016 09/08/2016 Inactive Spiriva with HandiHaler 18 mcg and inhalation capsules RxNor m: 918703 INHALE THE ENTIRE CONTENTS OF 1 CAPSULE ONCE A DAY USING HANDIHALER 09/01/201605/2017 Inactive Daliresp 500 mcg tablet RxNorm: 5902554 1 Tablet(s) PO QD 08/27/2016 03/01/2017 Inactive prednisone 20 mg tablet RxNorm: 218307 3 Tablet(s) PO T ID for 3 days then 1 po BID for 3 days then one daily for 3 days 08/26/2016 04/28/2017 Inactiv e Wellbutrin XL 300 mg 24 hr tablet, extended release RxNorm: 082506 TAKE ONE TABLET BY MOUTH EVERY MORNING 07/29/2016 10/26/2016 Inactive gabapentin 600 mg tablet RxNorm: 298192 1 Tablet(s) PO BID 06/26/20 16 12/22/2016 Inactive fluoxetine 40 mg capsule RxNorm: 359404 TAKE ONE CAPSULE BY BENOIT TH EVERY MORNING 06/24/2016 11/20/2016 Inactive Duragesic 100 mcg/hr transdermal patch RxNorm: 757514 2 Application TD Q48H for pain 06/05/2016 07/04/2016 Inactive oxycodone 10 mg tablet RxNorm: 6260817 1-2 Tablet(s) PO QID as n eeded for pain 06/05/2016 03/17/2017 Inactive Belladonna-Phenobarbital 48 mg tablet,extended release RxNor m: 2 Tablet(s) PO TID 06/05/2016 01/19/2017 Inactive Premarin 0.45 mg tablet RxNorm: 532687 TAKE ONE TABLET BY MOUTH DAILY 05/27/2016 09/23/2016 Inactive Topamax 100 mg tablet RxNorm: 890790 TAKE ONE TABLET BY MOUTH EVERY NIGHT AT BEDTIME 05/27/2016 09/27/2016 Inactive Synthroid 112 mcg tablet RxNorm: 456134 TAKE ONE TABLET BY MOUT H DAILY 05/27/2016 09/23/2016 Inactive metformin ER 500 mg tablet,extended release 24 hr RxNorm: 86 0975 TAKE ONE TABLET BY MOUTH DAILY 05/27/2016 09/23/2016 Inactive Symbicort 160 mcg-4.5 mcg/actuation HFA aerosol inhaler RxNo rm: 4530654 INHALE TWO PUFFS TWO TIMES A DAY 05/27/2016 10/23/2016 Inactive Ventolin HFA 90 mcg/actuation aerosol inhaler RxNorm: 521286 INHALE TWO PUFFS BY MOUTH EVERY 4 HOURS NEEDED 05/21/2016 07/07/2016 Inactive omeprazole 40 mg capsule,delayed release RxNorm: 943830 1 Capsu le(s) PO QD 05/06/2016 08/03/2016 Inactive metformin ER 500 mg tablet,extended release 24 hr RxNorm: 86 0975 TAKE ONE TABLET BY MOUTH DAILY 04/23/2016 05/22/2016 Inactive methocarbamol 750 mg tablet RxNorm: 871146 2 Tablet(s) PO TID as needed for muscle spasm 04/23/2016 09/08/2016 Inactive Synthroid 112 mcg tablet RxNorm: 605290 TAKE ONE TABLET BY MOUT H DAILY 04/23/2016 05/22/2016 Inactive Spiriva with HandiHaler 18 mcg and inhalation capsules RxNor m: 404107 INHALE THE ENTIRE CONTENTS OF 1 CAPSULE ONCE A DAY USING HANDIHALER 04/09/201608/2016 Inactive Diflucan 100 mg tablet RxNorm: 279226 1 Tablet(s) PO QD 04/08/2016 Inactive doxycycline hyclate 100 mg capsule RxNorm: 5263573 1 Capsule(s) PO BID 04/08/2016 04/17/2016 Inactive doxycycline hyclate 100 mg capsule RxNorm: 6532277 1 Capsule(s) PO BID 04/08/2016 04/07/2016 Inactive Diflucan 100 mg tablet RxNorm: 158283 1 Tablet(s) PO QD 04/08/2016 Inactive ondansetron HCl 4 mg tablet RxNorm: 383296 1 Tablet(s) PO Q4H as needed for nausea and vomiting 04/08/2016 09/22/2017 Inactive gabapentin 600 mg tablet RxNorm: 448897 TAKE ONE TABLET BY MOUT H TWICE A DAY 03/24/2016 06/25/2016 Inactive Synthroid 112 mcg tablet RxNorm: 283870 TAKE ONE TABLET BY MOUT H DAILY 02/25/2016 04/22/2016 Inactive Levaquin 500 mg tablet RxNorm: 530096 1 Tablet(s) PO QD 01/23/2016 Inactive prednisone 20 mg tablet RxNorm: 070706 1 Tablet(s) PO T ID for 3 days then 1 po BID for 3 days then one daily for 3 days 01/23/2016 08/25/2016 Inactiv e SED Web Ultra Test strips RxNorm: TEST BLOOD SUGAR ONCE DAILY 250.00 01/09/2016 11/04/2017 Inactive methocarbamol 750 mg tablet RxNorm: 940163 2 Tablet(s) PO TID as needed for muscle spasm 01/09/2016 04/23/2016 Inactive lactulose 10 gram/15 mL oral solution RxNorm: 103505 [address](s) PO QD 01/09/2016 09/22/2017 Inactive TAKE 1 TABLESPOON BY MOUTH ONCE DAILY metformin ER 500 mg tablet,extended release 24 hr RxNorm: 86 0975 1 Tablet(s) PO QD 12/26/2015 04/22/2016 Inactive fluoxetine 20 mg capsule RxNorm: 616057 1 Capsule(s) PO QD 12/23/19 16 06/19/2016 Inactive Premarin 0.45 mg tablet RxNorm: 017483 TAKE ONE TABLET BY MOUTH DAILY 12/23/2015 05/20/2016 Inactive fluoxetine 40 mg capsule RxNorm: 210145 1 Capsule(s) PO QD 12/23/19 16 06/19/2016 Inactive TAKE ONE CAPSULE BY MOUTH EV JANKI MORNING azithromycin 500 mg tablet RxNorm: 813044 1 Tablet(s) PO QD 016 12/19/2015 Inactive Zofran 4 mg tablet RxNorm: 594928 1 Tablet(s) PO Q4H prn nausea /vomiting 12/13/2015 03/30/2018 Inactive azithromycin 500 mg tablet RxNorm: 660296 1 Tablet(s) PO QD 016 12/12/2015 Inactive Duragesic 100 mcg/hr transdermal patch RxNorm: 090544 2 Application TD Q48H for pain 12/09/2015 01/07/2016 Inactive oxycodone 10 mg tablet RxNorm: 8813537 1-2 Tablet(s) PO QID as n eeded for pain 12/09/2015 06/04/2016 Inactive Bactroban 2 % topical cream RxNorm: 849237 Application TOP BID 11/2208/25/2016 Inactive doxycycline hyclate 100 mg capsule RxNorm: 8719209 1 Capsule(s) PO BID 12/03/2015 12/12/2015 Inactive Topamax 100 mg tablet RxNorm: 486176 TAKE ONE TABLET BY MOUTH EVERY NIGHT AT BEDTIME 11/25/2015 05/22/2016 Inactive Symbicort 160 mcg-4.5 mcg/actuation HFA aerosol inhaler RxNo rm: 7151831 INHALE TWO PUFFS TWO TIMES A DAY 11/25/2015 05/22/2016 Inactive Synthroid 112 mcg tablet RxNorm: 469130 Tablet(s) TAKE ONE TABLET BY MOUTH DAILY 11/25/2015 02/22/2016 Inactive omeprazole 40 mg capsule,delayed release RxNorm: 192255 1 Capsu le(s) PO QD 11/12/2015 05/05/2016 Inactive oxycodone 10 mg tablet RxNorm: 1854011 1-2 Tablet(s) PO QID as n eeded for pain 11/05/2015 12/08/2015 Inactive Duragesic 100 mcg/hr transdermal patch RxNorm: 806405 2 Application TD Q48H for pain 11/05/2015 12/04/2015 Inactive omeprazole 40 mg capsule,delayed release RxNorm: 722946 1 Capsu le(s) PO QD 10/07/2015 11/11/2015 Inactive Januvia 100 mg tablet RxNorm: 967352 TAKE ONE TABLET BY MOUTH DAILY 09/11/2015 12/25/2015 Inactive Zithromax 500 mg tablet RxNorm: 099333 1 Tablet(s) PO QD 09/10/2015 1 Inactive prednisone 20 mg tablet RxNorm: 466412 1 Tablet(s) PO T ID for 3 days then 1 po BID for 3 days then one daily for 3 days 09/10/2015 08/25/2016 Inactiv e Wellbutrin XL 300 mg 24 hr tablet, extended release RxNorm: 601347 1 Tablet(s) PO QAM 09/10/2015 12/02/2015 Inactive Topamax 100 mg tablet RxNorm: 674075 TAKE ONE TABLET BY MOUTH EVERY NIGHT AT BEDTIME 09/02/2015 11/24/2015 Inactive Synthroid 112 mcg tablet RxNorm: 333675 TAKE ONE TABLET BY MOUT H DAILY 09/02/2015 11/25/2015 Inactive methocarbamol 750 mg tablet RxNorm: 219359 2 Tablet(s) PO TID as needed for muscle spasm 08/15/2015 01/09/2016 Inactive Wellbutrin XL 150 mg 24 hr tablet, extended release RxNorm: 742368 TAKE ONE TABLET BY MOUTH EVERY MORNING 08/13/2015 08/13/2015 Inactive gabapentin 600 mg tablet RxNorm: 035617 1 Tablet(s) PO BID 08/13/20 15 02/08/2016 Inactive Wellbutrin XL 300 mg 24 hr tablet, extended release RxNorm: 150993 1 Tablet(s) PO QAM 08/06/2015 09/09/2015 Inactive Wellbutrin XL 150 mg 24 hr tablet, extended release RxNorm: 778633 1 Tablet(s) PO QAM 07/18/2015 08/05/2015 Inactive prednisone 20 mg tablet RxNorm: 260889 1 Tablet(s) PO BID 07/18/2015 07/22/2015 Inactive doxycycline hyclate 100 mg tablet,delayed release RxNorm: 43 4018 1 Tablet(s) PO BID 07/18/2015 07/27/2015 Inactive pravastatin 40 mg tablet RxNorm: 262038 1 Tablet(s) PO QD NEEDS FASTING LAB 07/15/2015 07/14/2015 Inactive pravastatin 40 mg tablet RxNorm: 992899 1 Tablet(s) PO QD NEEDS FASTING LAB 07/15/2015 01/25/2018 Inactive Ventolin HFA 90 mcg/actuation aerosol inhaler RxNorm: 911187 2 Puff(s) INH Q4H 07/08/2015 07/07/2015 Inactive prn Premarin 0.45 mg tablet RxNorm: 848613 1 Tablet(s) PO QD 07/01/2015 0 12/22/2015 Inactive pravastatin 40 mg tablet RxNorm: 112133 1 Tablet(s) PO QD NEEDS FASTING LAB 06/14/2015 07/15/2015 Inactive Ventolin HFA 90 mcg/actuation aerosol inhaler RxNorm: 5755209 2 Puff(s) INH Q4H 06/06/2015 07/08/2015 Inactive prn albuterol sulfate 2.5 mg/3 mL (0.083 %) solution for n ebulization RxNorm: 239395 1 Unit Dose INH QID 05/30/2015 No Stop Date Active Duragesic 100 mcg/hr transdermal patch RxNorm: 769437 2 Application TD Q48H for pain 04/29/2015 05/28/2015 Inactive gabapentin 600 mg tablet RxNorm: 450166 1 Tablet(s) PO BID 04/11/20 15 08/13/2015 Inactive Onglyza 5 mg tablet RxNorm: 692534 1 Tablet(s) PO QD for blood suga r 04/10/2015 04/15/2015 Inactive [Brand Copay Card: RxBIN:[id number] PCN:CRISTIANA RxGRP:[id number] ID#:[id number]] methocarbamol 750 mg tablet RxNorm: 617968 2 Tablet(s) PO TID as needed for muscle spasm 03/28/2015 08/15/2015 Inactive pravastatin 40 mg tablet RxNorm: 205571 1 Tablet(s) PO QD 03/19/2015 03/18/2015 Inactive pravastatin 40 mg tablet RxNorm: 987780 1 Tablet(s) PO QD 03/19/2015 06/14/2015 Inactive lactulose 10 gram/15 mL oral solution RxNorm: 104213 [address]s) PO QD 03/07/2015 01/09/2016 Inactive TAKE 1 TABLESPOON BY MOUTH ONCE DAILY oxycodone 20 mg tablet RxNorm: 4110356 1 Tablet(s) PO QID as nee ded for pain 03/05/2015 07/08/2015 Inactive Topamax 100 mg tablet RxNorm: 826231 1 Tablet(s) PO QHS TAKE ONE TABLET BY MOUTH AT BEDTIME 02/25/2015 02/12/2019 Inactive metformin ER 500 mg tablet,extended release 24 hr RxNorm: 86 0975 1 Tablet(s) PO QD 02/11/2015 03/04/2015 Inactive take one tablet by mouth every day Daliresp 500 mcg tablet RxNorm: 7377856 1 Tablet(s) PO QD 02/11/2015 08/09/2015 Inactive Endocet 10 mg-325 mg tablet RxNorm: 0273843 1 Tablet(s) PO Q4H as needed for pain 01/23/2015 01/23/2015 Inactive gabapentin 600 mg tablet RxNorm: 482853 1 Tablet(s) PO BID 01/23/20 15 04/11/2015 Inactive methocarbamol 750 mg tablet RxNorm: 928510 2 Tablet(s) PO TID as needed for muscle spasm 01/15/2015 02/13/2015 Inactive fluoxetine 40 mg capsule RxNorm: 060667 1 Capsule(s) PO QD 01/14/20 15 12/23/2015 Inactive TAKE ONE CAPSULE BY MOUTH EV JANKI MORNING fluoxetine 20 mg capsule RxNorm: 515652 1 Capsule(s) PO QD 01/14/20 15 12/23/2015 Inactive Premarin 0.45 mg tablet RxNorm: 680487 1 Tablet(s) PO QD 01/02/2015 0 07/01/2015 Inactive Endocet 10 mg-325 mg tablet RxNorm: 1913324 1-2 Tablet(s) PO Q4H 02/12/2019 Inactive PRN PAIN Duragesic 100 mcg/hr transdermal patch RxNorm: 926534 2 Application TD Q48H for pain 12/25/2014 01/23/2015 Inactive Topamax 100 mg tablet RxNorm: 283829 1 Tablet(s) PO QHS TAKE ONE TABLET BY MOUTH AT BEDTIME 12/25/2014 02/24/2015 Inactive Tudorza Pressair 400 mcg/actuation breath activated RxNorm: 1418652 1 BID INHALE ONE PUFF INTO LUNGS TWO TIMES A DAY 12/17/2014 05/15/2015 Inactive Endocet 10 mg-325 mg tablet RxNorm: 5948123 1-2 Tablet(s) PO Q4H 12/19/2014 Inactive PRN PAIN Duragesic 100 mcg/hr transdermal patch RxNorm: 126247 2 Application TD Q48H for pain 11/20/2014 12/24/2014 Inactive SED Web Ultra Test strips RxNorm: TEST BLOOD SUGAR ONCE DAILY 250.00 11/16/2014 01/08/2016 Inactive omeprazole 40 mg capsule,delayed release RxNorm: 534643 1 Capsu le(s) PO QD 11/13/2014 11/12/2015 Inactive metformin ER 500 mg tablet,extended release 24 hr RxNorm: 86 0975 1 Tablet(s) PO QD 11/12/2014 02/11/2015 Inactive take one tablet by mouth every day Symbicort 160 mcg-4.5 mcg/actuation HFA aerosol inhaler RxNo rm: 1810499 2 Puff(s) INH BID 11/12/2014 03/11/2015 Inactive INHALE 2 PUFFS O RALLY TWO TIMES A DAY gabapentin 800 mg tablet RxNorm: 546805 1 Tablet(s) PO QD TAKE ONE TABLET BY MOUTH ONCE A DAY 10/22/2014 01/01/2015 Inactive Endocet 10 mg-325 mg tablet RxNorm: 0644439 1-2 Tablet(s) PO Q4H 11/15/2014 Inactive PRN PAIN Duragesic 100 mcg/hr transdermal patch RxNorm: 818381 2 Application TD Q48H for pain 10/17/2014 11/19/2014 Inactive gabapentin 800 mg tablet RxNorm: 945741 1 Tablet(s) PO QD TAKE ONE TABLET BY MOUTH ONCE A DAY 10/04/2014 10/21/2014 Inactive Premarin 0.9 mg tablet RxNorm: 883979 1 Tablet(s) PO QD TAKE ONE TABLET BY MOUTH ONCE A DAY 10/04/2014 01/01/2015 Inactive Spiriva with HandiHaler 18 mcg & inhalation capsules RxNorm: 281633 1 Capsule(s) INH QD 10/03/2014 04/30/2015 Inactive Levaquin 500 mg tablet RxNorm: 462435 1 Tablet(s) PO QD 10/03/2014 Inactive prednisone 20 mg tablet RxNorm: 145431 1 Tablet(s) PO QD 10/03/201412/09/2013 Inactive Duragesic 100 mcg/hr transdermal patch RxNorm: 827774 2 Application TD Q48H for pain 09/18/2014 10/16/2014 Inactive Endocet 10 mg-325 mg tablet RxNorm: 3656281 1-2 Tablet(s) PO Q4H 10/16/2014 Inactive PRN PAIN Synthroid 112 mcg tablet RxNorm: 365151 1 Tablet(s) QD 09/10/2014 Inactive Synthroid 112 mcg tablet RxNorm: 273980 TAKE ONE TABLET BY MOUTH ONE TIME A DAY. NEEDS LABS 09/10/2014 02/06/2015 Inactive omeprazole 40 mg capsule,delayed release RxNorm: 366092 1 Capsu le(s) PO QD 09/03/2014 11/13/2014 Inactive omeprazole 40 mg capsule,delayed release RxNorm: 930436 1 Capsu le(s) PO QD 09/03/2014 09/02/2014 Inactive Spiriva with HandiHaler 18 mcg & inhalation capsules RxNorm: 233900 1 Capsule(s) INH QD 08/27/2014 10/02/2014 Inactive gabapentin 600 mg tablet RxNorm: 219762 1 Tablet(s) PO BID 08/27/20 14 10/22/2014 Inactive Endocet 10 mg-325 mg tablet RxNorm: 6283011 1-2 Tablet(s) PO Q4H 09/17/2014 Inactive PRN PAIN fentanyl 100 mcg/hr transdermal patch RxNorm: 668578 1 Unit Dos e TD QD 08/21/2014 09/19/2014 Inactive Daliresp 500 mcg tablet RxNorm: 1600344 1 Tablet(s) PO QD 08/13/2014 02/11/2015 Inactive Synthroid 112 mcg tablet RxNorm: 462443 TAKE ONE TABLET BY MOUTH ONE TIME A DAY. NEEDS LABS 08/10/2014 09/10/2014 Inactive Endocet 10 mg-325 mg tablet RxNorm: 0668644 1-2 Tablet(s) PO Q4H 08/17/2014 Inactive PRN PAIN Duragesic 100 mcg/hr transdermal patch RxNorm: 058176 2 Application TD Q48H for pain 07/19/2014 09/17/2014 Inactive fluoxetine 40 mg capsule RxNorm: 040964 1 Capsule(s) PO QD 07/17/20 14 01/14/2015 Inactive TAKE ONE CAPSULE BY MOUTH EV JANKI MORNING fluoxetine 20 mg capsule RxNorm: 175926 1 Capsule(s) PO QD 07/17/20 14 01/14/2015 Inactive Spiriva with HandiHaler 18 mcg & inhalation capsules RxNorm: 558620 1 Capsule(s) INH QD 07/17/2014 08/26/2014 Inactive INHALE CONTENTS OF 1 CAPSULE(S) WITH HANDIHALER ONCE DAILY Zofran 4 mg tablet RxNorm: 332591 1 Tablet(s) PO Q4H prn nausea 07/25/2014 Inactive Synthroid 112 mcg tablet RxNorm: 473787 1 Tablet(s) PO QD 07/09/2014 07/09/2014 Inactive methocarbamol 750 mg tablet RxNorm: 235998 2 Tablet(s) PO TID as needed for muscle spasm 07/09/2014 09/06/2014 Inactive Synthroid 112 mcg tablet RxNorm: 981467 1 Tablet(s) PO QD - nee d labs 07/09/2014 08/07/2014 Inactive Medrol (Aníbal) 4 mg tablets in a dose pack RxNorm: 356422 6 Tablet(s) PO QD --then as directed 07/03/2014 07/08/2014 Inactive Tudorza Pressair 400 mcg/actuation breath activated RxNorm: 4213914 1 Puff(s) INH BID 07/03/2014 12/17/2014 Inactive cefdinir 300 mg capsule RxNorm: 013889 1 Capsule(s) PO BID 07/03/20 14 07/12/2014 Inactive Topamax 100 mg tablet RxNorm: 391806 Tablet(s) TAKE ONE TABLET BY MOUTH AT BEDTIME 07/02/2014 02/25/2015 Inactive Duragesic 100 mcg/hr transdermal patch RxNorm: 052476 2 Application TD Q48H for pain 06/25/2014 07/18/2014 Inactive Endocet 10 mg-325 mg tablet RxNorm: 1146318 1-2 Tablet(s) PO Q4H 07/18/2014 Inactive PRN PAIN metformin ER 500 mg tablet,extended release 24 hr RxNorm: 86 0975 1 Tablet(s) PO QD Needs labs 06/18/2014 07/01/2014 Inactive take one tablet by mouth every day Duragesic 100 mcg/hr transdermal patch RxNorm: 879627 2 Application TD Q48H for pain 05/22/2014 06/24/2014 Inactive Synthroid 112 mcg tablet RxNorm: 809850 1 Tablet(s) PO QD 05/22/2014 07/09/2014 Inactive Endocet 10 mg-325 mg tablet RxNorm: 9956936 1-2 Tablet(s) PO Q4H 06/20/2014 Inactive PRN PAIN Endocet 10 mg-325 mg tablet RxNorm: 0585688 1-2 Tablet(s) PO Q4H 05/21/2014 Inactive PRN PAIN Duragesic 100 mcg/hr transdermal patch RxNorm: 751709 2 Application TD Q48H for pain 04/25/2014 05/21/2014 Inactive Daliresp 500 mcg tablet RxNorm: 5760891 1 Tablet(s) PO QD 04/24/2014 08/13/2014 Inactive Symbicort 160 mcg-4.5 mcg/actuation HFA aerosol inhaler RxNo rm: 3302419 2 Puff(s) INH BID 04/24/2014 08/21/2014 Inactive INHALE 2 PUFFS O RALLY TWO TIMES A DAY metformin ER 500 mg tablet,extended release 24 hr RxNorm: 86 0975 1 Tablet(s) PO QD 04/24/2014 11/12/2014 Inactive TAKE ONE TABLET BY MOUTH EVERY DAY [AttnRPh:Saving Apply/Adjudicate RxGRP:LDMGRP RxBIN:[id number] RxPCN:2012 PCode:01 ID#:[id number]] Symbicort 160 mcg-4.5 mcg/actuation HFA aerosol inhaler RxNo rm: [id number] Puff(s) INH BID 04/24/2014 11/12/2014 Inactive INHALE 2 PUFFS O RALLY TWO TIMES A DAY Premarin 0.9 mg tablet RxNorm: 017361 1 Tablet(s) PO QD 04/24/2014 Inactive TAKE ONE TABLET BY MOUTH EVERY DAY metformin ER 500 mg tablet,extended release 24 hr RxNorm: 86 0975 1 Tablet(s) PO QD Needs labs 04/24/2014 06/18/2014 Inactive TAKE ONE TABLET BY MOUTH EVERY DAY [AttnRPh:Saving Apply/Adjudicate RxGRP:LDMGRP RxBIN:[id number] RxPCN:2012 PCode:01 ID#:[id number]] gabapentin 800 mg tablet RxNorm: 529560 1 Tablet(s) PO QD 04/24/2014 10/04/2014 Inactive TAKE ONE TABLET BY MOUTH EVERY DAY Topamax 100 mg tablet RxNorm: 544465 1 Tablet(s) PO QHS 04/17/2014 Inactive Topamax 100 mg tablet RxNorm: 449283 TAKE ONE TABLET BY MOUTH A T BEDTIME 04/17/2014 07/01/2014 Inactive Tudorza Pressair 400 mcg/actuation breath activated RxNorm: 8755410 1 Puff(s) INH BID 04/11/2014 07/02/2014 Inactive Duragesic 100 mcg/hr transdermal patch RxNorm: 012131 2 Application TD Q48H for pain 03/27/2014 04/24/2014 Inactive Endocet 10 mg-325 mg tablet RxNorm: 5117557 1-2 Tablet(s) PO Q4H 04/24/2014 Inactive PRN PAIN Robaxin 750 mg tablet RxNorm: 188138 2 Tablet(s) PO TID as need ed for spasm 02/23/2014 03/28/2015 Inactive Duragesic 100 mcg/hr transdermal patch RxNorm: 330233 2 Application TD Q48H for pain 02/23/2014 No Stop Date Active Endocet 10 mg-325 mg tablet RxNorm: 1985954 1-2 Tablet(s) PO Q4H 03/23/2014 Inactive PRN PAIN Synthroid 112 mcg tablet RxNorm: 128392 1 Tablet(s) PO QD TAKE ONE TABLET BY MOUTH EVERY DAY 02/15/2014 05/22/2014 Inactive Zithromax 500 mg tablet RxNorm: 584274 1 Tablet(s) PO QD 01/30/2014 0 02/05/2014 Inactive Diflucan 100 mg tablet RxNorm: 885411 1 Tablet(s) PO QD 01/30/2014 Inactive prednisone 20 mg tablet RxNorm: 377538 1 Tablet(s) PO BID 01/30/2014 02/05/2014 Inactive fluoxetine 40 mg capsule RxNorm: 262111 1 Capsule(s) PO QD 01/23/20 14 07/16/2014 Inactive TAKE ONE CAPSULE BY MOUTH EV JANKI MORNING fluoxetine 40 mg capsule RxNorm: 749102 1 Capsule(s) PO QD 01/23/20 14 07/17/2014 Inactive TAKE ONE CAPSULE BY MOUTH EV JANKI MORNING cefdinir 300 mg capsule RxNorm: 185989 1 Capsule(s) PO BID 01/16/20 14 01/29/2014 Inactive Zithromax 500 mg tablet RxNorm: 265587 1 Tablet(s) PO QD 01/16/2014 0 01/22/2014 Inactive prednisone 20 mg tablet RxNorm: 321277 1 Tablet(s) PO BID 01/16/2014 01/22/2014 Inactive Spiriva with HandiHaler 18 mcg and inhalation capsules RxNor m: 620416 1 Capsule(s) INH QD 12/18/2013 07/17/2014 Inactive INHALE CONTENT S OF 1 CAPSULE(S) WITH HANDIHALER ONCE DAILY fluoxetine 20 mg capsule RxNorm: 116864 1 Capsule(s) PO QD 12/18/19 14 06/15/2014 Inactive Spiriva with HandiHaler 18 mcg & inhalation capsules RxNorm: 572953 1 Capsule(s) INH QD 12/18/2013 06/15/2014 Inactive INHALE CONTENTS OF 1 CAPSULE(S) WITH HANDIHALER ONCE DAILY fluoxetine 20 mg capsule RxNorm: 397214 1 Capsule(s) PO QD 12/18/19 14 07/17/2014 Inactive cefdinir 300 mg capsule RxNorm: 792229 2 Capsule(s) PO QD 12/12/2013 12/21/2013 Inactive Duragesic 100 mcg/hr transdermal patch RxNorm: 300496 2 Application TD Q48H for pain 12/08/2013 12/07/2013 Inactive Topamax 100 mg tablet RxNorm: 208075 1 Tablet(s) PO QHS 12/04/2013 Inactive Endocet 10 mg-325 mg tablet RxNorm: 4382354 1-2 Tablet(s) PO Q4H 12/26/2013 Inactive PRN PAIN Robaxin 750 mg tablet RxNorm: 210538 2 Tablet(s) PO TID as need ed for spasm 11/07/2013 01/05/2014 Inactive gabapentin 800 mg tablet RxNorm: 038784 1 Tablet(s) PO QD 10/16/2013 04/24/2014 Inactive TAKE ONE TABLET BY MOUTH EVERY DAY Symbicort 160 mcg-4.5 mcg/actuation HFA aerosol inhaler RxNo rm: 7952636 2 Puff(s) INH BID 10/16/2013 04/24/2014 Inactive INHALE 2 PUFFS O RALLY TWO TIMES A DAY Premarin 0.9 mg tablet RxNorm: 580756 1 Tablet(s) PO QD 10/16/2013 Inactive TAKE ONE TABLET BY MOUTH EVERY DAY metformin ER 500 mg tablet,extended release 24 hr RxNorm: 86 0975 1 Tablet(s) PO QD 10/16/2013 04/24/2014 Inactive TAKE ONE TABLET BY MOUTH EVERY DAY Daliresp 500 mcg tablet RxNorm: 9147708 1 Tablet(s) PO QD 10/16/2013 04/24/2014 Inactive Robaxin 750 mg tablet RxNorm: 004359 2 Tablet(s) PO TID as need ed for spasm 10/10/2013 11/06/2013 Inactive Duragesic 100 mcg/hr transdermal patch RxNorm: 382659 2 Application TD Q48H for pain 10/09/2013 No Stop Date Active Soma 350 mg tablet RxNorm: 765924 1 Tablet(s) PO TID 09/27/201310/09 Inactive TAKE ONE TABLET BY MOUTH THREE TIMES A D AY lactulose 10 gram/15 mL oral solution RxNorm: 595923 [address](s) PO QD 09/13/2013 03/07/2015 Inactive TAKE 1 TABLESPOON BY MOUTH ONCE DAILY Duragesic 100 mcg/hr transdermal patch RxNorm: 404653 2 Application TD Q48H for pain 09/06/2013 No Stop Date Active Endocet 10 mg-325 mg tablet RxNorm: 1234416 1-2 Tablet(s) PO Q4H 09/27/2013 Inactive PRN PAIN lancets 28 gauge RxNorm: Miscellaneous As needed for blo od glucose sticks 08/24/2013 No Stop Date Active 16.2 mg-0.1037 mg-0.0194 mg tablet RxNorm: 7386065 Tablet(s) PO PRN for gas and cramping 08/24/2013 01/19/2017 Inactive TAKE TWO TABLET S BY MOUTH THREE TIMES A DAY NEEDED FOR GAS AND CRAMPING Topamax 100 mg tablet RxNorm: 835544 1 Tablet(s) PO QHS 07/31/2013 Inactive Diflucan 100 mg tablet RxNorm: 107351 1 Tablet(s) PO QD 07/27/2013 Inactive cefdinir 300 mg capsule RxNorm: 668023 1 Capsule(s) PO BID 07/26/20 13 08/08/2013 Inactive Daliresp 500 mcg tablet RxNorm: 9409440 1 Tablet(s) PO QD 07/25/2013 10/15/2013 Inactive fluoxetine 40 mg capsule RxNorm: 514375 1 Capsule(s) PO QD 07/25/20 13 01/22/2014 Inactive TAKE ONE CAPSULE BY MOUTH EV JANKI MORNING Senokot-S 8.6 mg-50 mg tablet RxNorm: 9008930 1 Tablet(s) PO BID 10/25/2013 Inactive doxycycline hyclate 100 mg capsule RxNorm: 5709208 1 Capsule(s) PO BID 06/28/2013 07/07/2013 Inactive prednisone 20 mg tablet RxNorm: 484876 1 Tablet(s) PO BID 06/28/2013 07/04/2013 Inactive Zofran 4 mg tablet RxNorm: 781605 1 Tablet(s) PO Q4H prn nausea 03/201307/05/2013 Inactive Spiriva with HandiHaler 18 mcg & inhalation capsules RxNorm: 266228 1 Capsule(s) INH QD 06/26/2013 12/18/2013 Inactive INHALE CONTENTS OF 1 CAPSULE(S) WITH HANDIHALER ONCE DAILY Synthroid 112 mcg tablet RxNorm: 606744 1 Tablet(s) PO QD TAKE ONE TABLET BY MOUTH EVERY DAY 06/19/2013 02/15/2014 Inactive fluoxetine 20 mg capsule RxNorm: 499698 1 Capsule(s) PO QD 06/19/20 13 12/18/2013 Inactive Ventolin HFA 90 mcg/actuation Aerosol Inhaler RxNorm: 6977635 2 Puff(s) INH Q4H 06/05/2013 No Stop Date Active prn Soma 350 mg tablet RxNorm: 923245 1 Tablet(s) PO TID 06/05/201307/04 Inactive TAKE ONE TABLET BY MOUTH THREE TIMES A D AY prednisone 20 mg tablet RxNorm: 108532 1 Tablet(s) PO QD 05/31/2013 0 06/06/2013 Inactive Topamax 100 mg tablet RxNorm: 452290 1 Tablet(s) PO QHS 05/22/2013 Inactive Levaquin 500 mg tablet RxNorm: 393646 1 Tablet(s) PO QD 05/03/2013 Inactive Diflucan 100 mg tablet RxNorm: 865368 1 Tablet(s) PO QD 05/03/2013 Inactive Daliresp 500 mcg tablet RxNorm: 5783697 1 Tablet(s) PO QD 05/01/2013 07/24/2013 Inactive Daliresp 500 mcg tablet RxNorm: 2525521 1 Tablet(s) PO QD 05/01/2013 04/30/2013 Inactive gabapentin 800 mg tablet RxNorm: 146818 1 Tablet(s) PO QD 04/10/2013 10/06/2013 Inactive TAKE ONE TABLET BY MOUTH EVERY DAY metformin ER 500 mg tablet,extended release 24 hr RxNorm: 86 0977 1 Tablet(s) PO QD 04/10/2013 10/06/2013 Inactive TAKE ONE TABLET BY MOUTH EVERY DAY Premarin 0.9 mg tablet RxNorm: 766036 1 Tablet(s) PO QD 04/10/2013 Inactive TAKE ONE TABLET BY MOUTH EVERY DAY Symbicort 160 mcg-4.5 mcg/actuation HFA aerosol inhaler RxNo rm: 2723235 2 Puff(s) INH BID 04/10/2013 10/06/2013 Inactive INHALE 2 PUFFS O RALLY TWO TIMES A DAY Synthroid 112 mcg tablet RxNorm: 085963 1 Tablet(s) PO QD TAKE ONE TABLET BY MOUTH EVERY DAY 04/10/2013 06/18/2013 Inactive Ventolin HFA 90 mcg/actuation Aerosol Inhaler RxNorm: 0393965 2 Puff(s) INH Q4H 04/10/2013 No Stop Date Active prn fentanyl 100 mcg/hr transdermal patch RxNorm: 718632 1 Unit Dos e TD QD 04/03/2013 05/02/2013 Inactive Endocet 10 mg-325 mg tablet RxNorm: 6854077 1-2 Tablet(s) PO Q4H 05/02/2013 Inactive PRN PAIN Topamax 100 mg tablet RxNorm: 999358 1 Tablet(s) PO QHS 03/13/2013 Inactive Reglan 10 mg tablet RxNorm: 780861 1 Tablet(s) PO QID b efore meals and at bedtime 03/13/2013 04/09/2015 Inactive fluoxetine 20 mg capsule RxNorm: 909365 1 Capsule(s) PO QD 02/28/20 13 05/27/2013 Inactive Ventolin HFA 90 mcg/actuation Aerosol Inhaler RxNorm: 4155473 2 Puff(s) INH Q4H 02/13/2013 No Stop Date Active prn fluoxetine 40 mg capsule RxNorm: 443790 1 Capsule(s) PO QD 01/31/20 13 07/24/2013 Inactive TAKE ONE CAPSULE BY MOUTH EV JANKI MORNING Soma 350 mg tablet RxNorm: 986637 1 Tablet(s) PO TID 01/20/201302/18 Inactive TAKE ONE TABLET BY MOUTH THREE TIMES A D AY Endocet 10 mg-325 mg tablet RxNorm: 1757139 1-2 Tablet(s) PO Q4H 02/06/2013 Inactive PRN PAIN MS Contin 200 mg tablet,extended release RxNorm: 615898 1 Table t(s) PO BID 01/18/2013 02/06/2013 Inactive Ventolin HFA 90 mcg/actuation Aerosol Inhaler RxNorm: 7635166 2 Puff(s) INH Q4H 01/04/2013 No Stop Date Active prn Spiriva with HandiHaler 18 mcg & inhalation capsules RxNorm: 064387 1 Capsule(s) INH QD 12/29/2012 06/25/2013 Inactive INHALE CONTENTS OF 1 CAPSULE(S) WITH HANDIHALER ONCE DAILY Spiriva with HandiHaler 18 mcg & inhalation capsules RxNorm: 488473 1 Capsule(s) INH QD 12/26/2012 12/28/2012 Inactive INHALE CONTENTS OF 1 CAPSULE(S) WITH HANDIHALER ONCE DAILY Synthroid 112 mcg tablet RxNorm: 019475 Tablet(s) PO TA KE ONE TABLET BY MOUTH EVERY DAY 12/26/2012 04/09/2013 Inactive Endocet 10 mg-325 mg tablet RxNorm: 2025778 1-2 Tablet(s) PO Q4H 01/17/2013 Inactive PRN PAIN MS Contin 200 mg tablet,extended release RxNorm: 112395 1 Table t(s) PO BID 12/21/2012 01/17/2013 Inactive fluoxetine 20 mg capsule RxNorm: 002270 1 Capsule(s) PO QD 12/06/19 13 02/26/2013 Inactive Synthroid 112 mcg tablet RxNorm: 783065 1 Tablet(s) PO QD 12/06/2012 02/12/2019 Inactive TAKE ONE TABLET BY MOUTH EVERY DAY Ventolin HFA 90 mcg/actuation Aerosol Inhaler RxNorm: 0585605 2 Puff(s) INH Q4H 12/06/2012 No Stop Date Active prn Reglan 10 mg tablet RxNorm: 809579 1 Tablet(s) PO QID b efore meals and at bedtime 11/24/2012 03/12/2013 Inactive Topamax 100 mg tablet RxNorm: 995294 1 Tablet(s) PO QHS 11/16/2012 Inactive Ventolin HFA 90 mcg/actuation Aerosol Inhaler RxNorm: 1040639 2 Puff(s) INH Q4H 11/09/2012 No Stop Date Active prn gabapentin 800 mg tablet RxNorm: 904216 1 Tablet(s) PO QD 10/27/2012 04/09/2013 Inactive TAKE ONE TABLET BY MOUTH EVERY DAY metformin ER 500 mg tablet,extended release 24 hr RxNorm: 86 0977 1 Tablet(s) PO QD 10/27/2012 04/09/2013 Inactive TAKE ONE TABLET BY MOUTH EVERY DAY Symbicort 160 mcg-4.5 mcg/actuation HFA Aerosol Inhaler RxNo rm: 4656562 2 Puff(s) INH BID 10/27/2012 04/09/2013 Inactive INHALE 2 PUFFS O RALLY TWO TIMES A DAY Premarin 0.9 mg tablet RxNorm: 167332 1 Tablet(s) PO QD 10/27/2012 Inactive TAKE ONE TABLET BY MOUTH EVERY DAY Endocet 10 mg-325 mg tablet RxNorm: 3972848 1-2 Tablet(s) PO Q4H 11/24/2012 Inactive PRN PAIN MS Contin 200 mg tablet,extended release RxNorm: 521754 1 Table t(s) PO BID 10/26/2012 11/24/2012 Inactive Soma 350 mg tablet RxNorm: 733587 1 Tablet(s) PO TID 10/04/201211/02 Inactive TAKE ONE TABLET BY MOUTH THREE TIMES A D AY Ventolin HFA 90 mcg/actuation Aerosol Inhaler RxNorm: 4287068 2 Puff(s) INH Q4H 10/03/2012 No Stop Date Active prn Daliresp 500 mcg tablet RxNorm: 3394974 1 Tablet(s) PO QD 09/28/2012 09/27/2012 Inactive Daliresp 500 mcg tablet RxNorm: 3499139 1 Tablet(s) PO QD 09/28/2012 04/25/2013 Inactive fluoxetine 20 mg capsule RxNorm: 338464 1 Capsule(s) PO QD 09/05/2012/06/2012 Inactive Topamax 50 mg tablet RxNorm: 166847 Tablet(s) PO for 1w k then 1 po q HS for 1wk then 2 po q HS 08/29/2012 09/27/2012 Inactive TAKE 1/2 TABLET BY MOUTH AT BEDTIME FOR 1 WEEK, THEN 1 TABLET AT BEDTIME FOR 1 WEEK, THEN 2 TABLETS AT BEDTIME Topamax 100 mg tablet RxNorm: 048529 1 Tablet(s) PO QHS 08/29/2012 Inactive Ventolin HFA 90 mcg/actuation Aerosol Inhaler RxNorm: 5422887 2 Puff(s) INH Q4H 08/19/2012 No Stop Date Active prn Ventolin HFA 90 mcg/actuation Aerosol Inhaler RxNorm: 4582181 2 Puff(s) INH Q4H 08/15/2012 No Stop Date Active prn Synthroid 112 mcg tablet RxNorm: 296918 1 Tablet(s) PO QD 08/10/2012 11/07/2012 Inactive TAKE ONE TABLET BY MOUTH EVERY DAY Synthroid 112 mcg tablet RxNorm: 733007 1 Tablet(s) PO QD 08/01/2012 08/09/2012 Inactive TAKE ONE TABLET BY MOUTH EVERY DAY Reglan 10 mg tablet RxNorm: 046028 1 Tablet(s) PO QID b efore meals and at bedtime 08/01/2012 11/23/2012 Inactive fluoxetine 40 mg capsule RxNorm: 189449 1 Capsule(s) PO QD 08/01/20 12 01/27/2013 Inactive TAKE ONE CAPSULE BY MOUTH EV JANKI MORNING Ventolin HFA 90 mcg/actuation Aerosol Inhaler RxNorm: 7905392 2 Puff(s) INH Q4H 08/01/2012 No Stop Date Active prn Soma 350 mg tablet RxNorm: 397472 1 Tablet(s) PO TID 07/20/201208/18 Inactive TAKE ONE TABLET BY MOUTH THREE TIMES A D AY Spiriva with HandiHaler 18 mcg & inhalation capsules RxNorm: 464515 1 Capsule(s) INH 07/01/2012 12/25/2012 Inactive INHALE CONTENTS OF 1 CAPSULE(S) WITH HANDIHALER ONCE DAILY Zithromax 250 mg Tab RxNorm: 253659 2 Tablet(s) PO QD 06/28/201206/22 Inactive MS Contin 200 mg tablet,extended release RxNorm: 690696 1 Table t(s) PO BID 06/28/2012 07/27/2012 Inactive Endocet 10 mg-325 mg tablet RxNorm: 8872605 1-2 Tablet(s) PO Q4H 07/27/2012 Inactive PRN PAIN Topamax 100 mg tablet RxNorm: 305338 1 Tablet(s) PO QHS 06/28/2012 Inactive 16.2 mg-0.1037 mg-0.0194 mg tablet RxNorm: 3865761 Tablet(s) PO PRN for gas and cramping 06/08/2012 08/23/2013 Inactive TAKE TWO TABLET S BY MOUTH THREE TIMES A DAY NEEDED FOR GAS AND CRAMPING Ventolin HFA 90 mcg/actuation Aerosol Inhaler RxNorm: 4171961 2 Puff(s) INH Q4H 05/23/2012 No Stop Date Active prn Ventolin HFA 90 mcg/actuation Aerosol Inhaler RxNorm: 6298464 2 Puff(s) INH Q4H 05/11/2012 No Stop Date Active prn Synthroid 112 mcg tablet RxNorm: 831669 1 Tablet(s) PO QD 05/09/2012 07/31/2012 Inactive TAKE ONE TABLET BY MOUTH EVERY DAY gabapentin 800 mg tablet RxNorm: 958684 1 Tablet(s) PO QD 05/09/2012 10/26/2012 Inactive TAKE ONE TABLET BY MOUTH EVERY DAY fluoxetine 40 mg capsule RxNorm: 826612 1 Capsule(s) PO QD 05/09/2007/31/2012 Inactive TAKE ONE CAPSULE BY MOUTH EV JANKI MORNING metformin ER 500 mg tablet,extended release 24 hr RxNorm: 86 0977 1 Tablet(s) PO QD 05/09/2012 10/26/2012 Inactive TAKE ONE TABLET BY MOUTH EVERY DAY Premarin 0.9 mg tablet RxNorm: 797183 1 Tablet(s) PO QD 05/09/2012 Inactive TAKE ONE TABLET BY MOUTH EVERY DAY Symbicort 160 mcg-4.5 mcg/actuation HFA Aerosol Inhaler RxNo rm: 5371636 2 Puff(s) INH BID 05/09/2012 10/26/2012 Inactive INHALE 2 PUFFS O RALLY TWO TIMES A DAY Endocet 10 mg-325 mg Tab RxNorm: 1294961 1-2 Tablet(s) PO Q4H 04/2705/26/2012 Inactive PRN PAIN MS Contin 200 mg Tab RxNorm: 421669 1 Tablet(s) PO BID 04/26/201202/2012 Inactive Ventolin HFA 90 mcg/actuation Aerosol Inhaler RxNorm: 9723299 2 Puff(s) INH Q4H 04/25/2012 05/10/2012 Inactive prn Soma 350 mg tablet RxNorm: 381359 2 Tablet(s) PO TID 04/19/201207/19 Inactive TAKE ONE TABLET BY MOUTH THREE TIMES A D AY Ventolin HFA 90 mcg/actuation Aerosol Inhaler RxNorm: 2908698 2 Puff(s) INH Q4H 04/12/2012 04/24/2012 Inactive prn Reglan 10 mg tablet RxNorm: 603215 1 Tablet(s) PO QID b efore meals and at bedtime 04/11/2012 07/31/2012 Inactive MS Contin 200 mg Tab RxNorm: 441124 1 Tablet(s) PO BID 03/30/201202/2012 Inactive Endocet 10 mg-325 mg Tab RxNorm: 1541605 1-2 Tablet(s) PO Q4H 03/3004/26/2012 Inactive PRN PAIN MS Contin 200 mg Tab RxNorm: 766726 1 Tablet(s) PO BID 03/02/201206/2012 Inactive Endocet 10 mg-325 mg Tab RxNorm: 5025369 1-2 Tablet(s) PO Q4H 03/0203/29/2012 Inactive PRN PAIN Daliresp 500 mcg tablet RxNorm: 0370794 1 Tablet(s) PO QD 03/01/2012 09/28/2012 Inactive MS Contin 200 mg Tab RxNorm: 504544 1 Tablet(s) PO BID 02/02/201208/2012 Inactive Endocet 10 mg-325 mg Tab RxNorm: 5521131 1-2 Tablet(s) PO Q4H 02/0103/01/2012 Inactive PRN PAIN fluoxetine 40 mg capsule RxNorm: 970834 1 Capsule(s) PO QD 02/02/2008/01/2012 Inactive TAKE ONE CAPSULE BY MOUTH EV JANKI MORNING Synthroid 112 mcg Tab RxNorm: 883155 1 Tablet(s) PO QD 01/18/2012 Inactive TAKE ONE TABLET BY MOUTH EVERY DAY lactulose 10 gram/15 mL oral solution RxNorm: 598757 [address]s) PO QD 01/18/2012 No Stop Date Active TAKE 1 TABLESPOON BY MOUTH ONCE DAILY Ventolin HFA 90 mcg/actuation Aerosol Inhaler RxNorm: 7792065 2 Puff(s) INH Q4H 01/18/2012 04/11/2012 Inactive prn MS Contin 200 mg Tab RxNorm: 710019 1 Tablet(s) PO BID 01/05/201210/2012 Inactive Endocet 10 mg-325 mg Tab RxNorm: 3561368 1-2 Tablet(s) PO Q4H 01/0502/01/2012 Inactive PRN PAIN ProAir HFA 90 mcg/Actuation Aerosol Inhaler RxNorm: 1894682 2 Pu ff(s) INH Q4H 12/21/2011 No Stop Date Active prn for wheezing or shortness of breath Spiriva with HandiHaler 18 mcg & inhalation Caps RxNorm: 580 261 1 Capsule(s) INH 12/21/2011 06/30/2012 Inactive INHALE CONTENTS OF 1 CAPSULE(S) WITH HANDIHALER ONCE DAILY Reglan 10 mg Tab RxNorm: 651759 1 Tablet(s) PO QID before meals and at bedtime 12/21/2011 04/10/2012 Inactive Synthroid 112 mcg Tab RxNorm: 146806 1 Tablet(s) PO QD 12/21/2011 Inactive TAKE ONE TABLET BY MOUTH EVERY DAY Endocet 10 mg-325 mg Tab RxNorm: 7302575 1-2 Tablet(s) PO Q4H 11/2512/24/2011 Inactive PRN PAIN MS Contin 200 mg Tab RxNorm: 851697 1 Tablet(s) PO BID 11/25/201112/2011 Inactive lactulose 10 gram/15 mL Oral Soln RxNorm: 869823 Milliliter(s) PO 1 No Stop Date Active TAKE 1 TABLESPOON BY MOUTH O NCE DAILY lactulose 10 gram/15 mL Oral Soln RxNorm: 331710 Milliliter(s) PO 1 12/12/2010 11/20/2011 Inactive TAKE 1 TABLESPOON BY MOUTH O NCE DAILY Premarin 0.9 mg Tab RxNorm: 654686 1 Tablet(s) PO QD 10/12/201105/08 Inactive TAKE ONE TABLET BY MOUTH EVERY DAY fluoxetine 20 mg capsule RxNorm: 863671 1 Capsule(s) PO QD 10/12/2009/05/2012 Inactive TAKE ONE CAPSULE BY MOUTH EV JANKI DAY Synthroid 112 mcg Tab RxNorm: 567663 1 Tablet(s) PO QD 10/12/2011 Inactive TAKE ONE TABLET BY MOUTH EVERY DAY metformin ER 500 mg 24 hr Tab RxNorm: 554813 1 Tablet(s) PO QD 09/2311/10/2011 Inactive TAKE ONE TABLET BY MOUTH GLYNN RY DAY Synthroid 112 mcg Tab RxNorm: 760755 1 Tablet(s) PO QD 10/12/2011 Inactive TAKE ONE TABLET BY MOUTH EVERY DAY metformin ER 500 mg 24 hr Tab RxNorm: 682997 1 Tablet(s) PO QD 09/2310/11/2011 Inactive TAKE ONE TABLET BY MOUTH GLYNN RY DAY Prevacid 30 mg Cap RxNorm: 777740 Capsule(s) PO 10/12/2011 01/25/2012 Inactive TAKE ONE CAPSULE BY MOUTH EVERY DAY Symbicort 160 mcg-4.5 mcg/actuation HFA Aerosol Inhaler RxNo rm: 1701823 2 Puff(s) INH BID 10/12/2011 05/08/2012 Inactive INHALE 2 PUFFS O RALLY TWO TIMES A DAY gabapentin 800 mg Tab RxNorm: 867756 1 Tablet(s) PO QD 10/12/2011 Inactive TAKE ONE TABLET BY MOUTH EVERY DAY MS Contin 200 mg Tab RxNorm: 340101 1 Tablet(s) PO BID 09/23/201111/2010 Inactive Endocet 10 mg-325 mg Tab RxNorm: 0999432 1-2 Tablet(s) PO Q4H 09/2310/22/2011 Inactive PRN PAIN Endocet 10 mg-325 mg Tab RxNorm: 5910392 1-2 Tablet(s) PO Q4H 08/2109/19/2011 Inactive PRN PAIN MS Contin 200 mg Tab RxNorm: 708814 1 Tablet(s) PO BID 08/21/2011 Inactive Diflucan 100 mg Tab RxNorm: 533054 1 Tablet(s) PO QD 08/10/201108/16 Inactive cefdinir 300 mg Cap RxNorm: 025071 2 Capsule(s) PO QD 08/10/201107/24 Inactive Reglan 10 mg Tab RxNorm: 389124 1 Tablet(s) PO AC & HS 07/15/2011 Inactive Endocet 10 mg-325 mg Tab RxNorm: 5675687 1-2 Tablet(s) PO Q4H 07/1508/13/2011 Inactive PRN PAIN One Touch Ultra Test strips RxNorm: Miscellaneous BID 06/11/201101/16/2014 Inactive TEST TWO TIMES A DAY lactulose 10 gram/15 mL Oral Soln RxNorm: 716504 Milliliter(s) PO 0 06/10/2011 10/11/2011 Inactive TAKE 1 TABLESPOON BY MOUTH O NCE DAILY Chantix Continuing Month Aníbal 1 mg Tab RxNorm: 735374 Tablet(s) PO 0 06/10/2011 11/02/2011 Inactive TAKE DIRECTED - PER PACK[employer] GE INSTRUCTIONS fluoxetine 40 mg Cap RxNorm: 264407 Capsule(s) PO 06/10/2011 02/02/20 12 Inactive TAKE ONE CAPSULE BY MOUTH EVERY MORNING Chantix Continuing Month Aníbal 1 mg Tab RxNorm: 919231 Ta blet(s) PO TAKE DIRECTED - PER PACKAGE INSTRUCTIONS 05/13/2011 06/09/2011 Inactive Soma 350 mg Tab RxNorm: 316953 Tablet(s) PO TAKE ON E TABLET BY MOUTH THREE TIMES A DAY 05/13/2011 04/18/2012 Inactive Chantix Continuing Month Aníbal 1 mg Tab RxNorm: 593294 Ta blet(s) PO as directed per package instructions. 04/22/2011 05/12/2011 Inactive Symbicort 160 mcg-4.5 mcg/Actuation HFA Aerosol Inhaler RxNo rm: 0369312 HFA Aerosol Inhaler INH INHALE 2 PUFFS ORALLY TWO TIMES A DAY 04/13/2011 Inactive Synthroid 112 mcg Tab RxNorm: 151724 Tablet(s) PO TAKE ONE TABLET BY MOUTH EVERY DAY 04/13/2011 10/12/2011 Inactive Premarin 0.9 mg Tab RxNorm: 594610 Tablet(s) PO TAKE ON E TABLET BY MOUTH EVERY DAY 04/13/2011 10/12/2011 Inactive gabapentin 800 mg Tab RxNorm: 269888 Tablet(s) PO TAKE ONE TABLET BY MOUTH EVERY DAY 04/13/2011 10/12/2011 Inactive Prevacid 30 mg Cap RxNorm: 509412 1 Capsule(s) PO QD 04/13/201110/11 Inactive Spiriva with HandiHaler 18 mcg & inhalation Caps RxNorm: 580 261 Capsule(s) INH INHALE CONTENTS OF 1 CAPSULE(S) WITH HANDIHALER ONCE DAILY 04/13/2011 12/21/2011 Inactive metformin ER 500 mg 24 hr Tab RxNorm: 700053 Tablet(s) PO TAKE ONE TABLET BY MOUTH EVERY DAY 04/13/2011 10/12/2011 Inactive Soma 350 mg Tab RxNorm: 936948 1 Tablet(s) PO QID 03/30/2011 02/13/20 19 Inactive fluoxetine 20 mg Cap RxNorm: 010889 Capsule(s) PO TAKE ONE CAPSULE BY MOUTH EVERY DAY 03/25/2011 10/12/2011 Inactive cefdinir 300 mg Cap RxNorm: 710443 2 Capsule(s) PO QD 03/19/201105/2011 Inactive 16.2 mg-0.1037 mg-0.0194 mg Tab RxNorm: 2002478 2 Tablet(s) PO TID PRN for gas and cramping 03/16/2011 07/13/2011 Inactive Soma 350 mg Tab RxNorm: 059054 2 Tablet(s) PO TID 03/16/2011 03/29/20 11 Inactive Chantix Starting Month Aníbal 0.5 mg (11)-1 mg (3x14) Tab s in a Dose Pack RxNorm: 415956 Tablet(s) PO as directed 03/02/2011 No Stop Date Active diazepam 10 mg Tab RxNorm: 597541 1 Tablet(s) PO BID 02/10/201101/19 Inactive Zofran 4 mg tablet RxNorm: 313473 1 Tablet(s) PO Q4H prn nausea 02/16/2011 Inactive Diflucan 100 mg Tab RxNorm: 002168 1 Tablet(s) PO QD 01/18/201101/24 Inactive Premarin 0.625 mg/g Vaginal Cream RxNorm: 997021 VAG In sert 1gm vaginally at bedtime 3 times weekly 01/18/2011 02/12/2019 Inactive loratadine 10 mg Tab RxNorm: 236917 1 Tablet(s) PO QD 12/17/201003/2012 Inactive Spiriva with HandiHaler 18 mcg & inhalation Caps RxNorm: 580 261 1 Capsule(s) INH QD 12/17/2010 04/12/2011 Inactive Diflucan 100 mg Tab RxNorm: 857867 1 Tablet(s) PO QD 12/17/201012/23 Inactive diazepam 10 mg Tab RxNorm: 090946 1 Tablet(s) PO BID and PRN 201002/12/2019 Inactive One Touch Ultra Test Strips RxNorm: InVt BID Zainab t blood sugar at least twice daily. 11/11/2010 06/11/2011 Inactive fluoxetine 40 mg Cap RxNorm: 478003 1 Capsule(s) PO QAM 11/11/2010 Inactive diazepam 10 mg Tab RxNorm: 354407 1 Tablet(s) PO BID and PRN 200911/12/2010 Inactive Bactrim DS 800 mg-160 mg Tab RxNorm: 086683 1 Tablet(s) PO BID 09/2210/15/2010 Inactive fluoxetine 20 mg Cap RxNorm: 477680 1 Capsule(s) PO QD 10/02/201008/2011 Inactive Bactrim DS 800 mg-160 mg Tab RxNorm: 606722 1 Tablet(s) PO BID 01/201010/03/2010 Inactive Zofran 4 mg Tab RxNorm: 689865 1 Tablet(s) PO Q4H prn nausea 200910/16/2010 Inactive 16.2 mg-0.1037 mg-0.0194 mg Tab RxNorm: 2768952 2 Tablet(s) PO TID PRN for gas and cramping 09/17/2010 10/21/2010 Inactive Gabapentin 800 mg Tab RxNorm: 165265 1 Tablet(s) PO QD 09/16/2010 Inactive ProAir HFA 90 mcg/Actuation Aerosol Inhaler RxNorm: 9147718 2 Puff(s) INH Q4H prn shortness of breath 09/15/2010 12/13/2010 Inactive gabapentin 800 mg Tab RxNorm: 423167 1 Tablet(s) PO QD 09/15/2010 Inactive Prevacid 30 mg Cap RxNorm: 439289 1 Capsule(s) PO QD 09/15/201004/12 Inactive loratadine 10 mg Tab RxNorm: 001346 1 Tablet(s) PO QD 09/15/201011/23 Inactive Premarin 0.9 mg Tab RxNorm: 334077 1 Tablet(s) PO QD 09/15/201004/12 Inactive Synthroid 112 mcg Tab RxNorm: 926336 1 Tablet(s) PO QD 09/15/2010 Inactive metformin ER 500 mg 24 hr Tab RxNorm: 425999 1 Tablet(s) PO QD 08/2304/12/2011 Inactive Symbicort 160 mcg-4.5 mcg/Actuation Inhalation HFA Aer osol Inhaler RxNorm: 5279104 2 Puff(s) INH BID 09/15/2010 04/12/2011 Inactive diazepam 10 mg Tab RxNorm: 324591 1 Tablet(s) PO BID and PRN 200910/13/2010 Inactive Phentermine 37.5 mg Cap RxNorm: 502832 1 Capsule(s) PO QD 09/02/2010 11/02/2011 Inactive ProAir HFA 90 mcg/Actuation Aerosol Inhaler RxNorm: 8732949 2 Puff(s) INH Q4H prn shortness of breath 08/07/2010 No Stop Date Active Premarin 0.9 mg Tab RxNorm: 280480 1 Tablet(s) PO QD 08/07/201009/14 Inactive Loratadine 10 mg Tab RxNorm: 310546 1 Tablet(s) PO QD 08/07/201008/23 Inactive Lactulose 10 gram/15 mL Oral Soln RxNorm: 852411 1 Unit Dose PO QD 08/07/2010 02/12/2019 Inactive Zofran 4 mg Tab RxNorm: 645659 1 Tablet(s) PO Q4H prn nausea 2009 No Stop Date Active Gabapentin 800 mg Tab RxNorm: 927994 1 Tablet(s) PO QD 08/07/2010 Inactive Synthroid 112 mcg Tab RxNorm: 482895 1 Tablet(s) PO QD 08/07/2010 Inactive Metformin ER 500 mg 24 hr Tab RxNorm: 589261 1 Tablet(s) PO QD 07/2309/14/2010 Inactive Vitamin D 1,000 unit Tab RxNorm: 375119 1 Tablet(s) PO TID 08/07/2002/12/2019 Inactive Symbicort 160 mcg-4.5 mcg/Actuation Inhalation HFA Aer osol Inhaler RxNorm: 8085344 2 Puff(s) INH BID 08/07/2010 09/14/2010 Inactive Prevacid 30 mg Cap RxNorm: 271766 1 Capsule(s) PO QD 08/07/201009/14 Inactive Metformin ER 500 mg 24 hr Tab RxNorm: 556619 1 Tablet(s) PO QD 06/2308/06/2010 Inactive Vitamin D 1,000 unit Tab RxNorm: 238785 1 Tablet(s) PO TID 07/14/2008/06/2010 Inactive Synthroid 112 mcg Tab RxNorm: 283559 1 Tablet(s) PO QD 07/14/2010 Inactive Lactulose 10 gram/15 mL Oral Soln RxNorm: 294594 1 Unit Dose PO QD 07/14/2010 08/06/2010 Inactive Levaquin 500 mg Tab RxNorm: 345642 1 Tablet(s) PO QD 07/14/201007/27 Inactive Premarin 0.9 mg Tab RxNorm: 176496 1 Tablet(s) PO QD 07/14/201008/06 Inactive ProAir HFA 90 mcg/Actuation Aerosol Inhaler RxNorm: 2706340 2 Puff(s) INH Q4H prn shortness of breath 07/14/2010 No Stop Date Active Prevacid 30 mg Cap RxNorm: 876218 1 Capsule(s) PO QD 07/14/201008/06 Inactive Zofran 4 mg Tab RxNorm: 341815 1 Tablet(s) PO Q4H prn nausea 2009 No Stop Date Active Symbicort 160 mcg-4.5 mcg/Actuation Inhalation HFA Aer osol Inhaler RxNorm: 3963836 2 Puff(s) INH BID 07/14/2010 08/06/2010 Inactive Loratadine 10 mg Tab RxNorm: 756794 1 Tablet(s) PO QD 07/14/201007/23 Inactive Gabapentin 800 mg Tab RxNorm: 150717 1 Tablet(s) PO QD 07/14/2010 Inactive Metformin ER 500 mg 24 hr Tab RxNorm: 172181 1 Tablet(s) PO 010 07/13/2010 Inactive Diazepam 10 mg Tab RxNorm: 689132 1 Tablet(s) PO BID and PRN 200909/06/2010 Inactive Premarin 0.9 mg Tab RxNorm: 534122 1 Tablet(s) PO QD 06/09/201007/13 Inactive Zofran 4 mg Tab RxNorm: 252292 1 Tablet(s) PO Q4H prn nausea 2009 No Stop Date Active ProAir HFA 90 mcg/Actuation Aerosol Inhaler RxNorm: 4015487 2 Puff(s) INH Q4H prn shortness of breath 06/09/2010 No Stop Date Active Gabapentin 800 mg Tab RxNorm: 432574 1 Tablet(s) PO QD 06/09/2010 Inactive Loratadine 10 mg Tab RxNorm: 824229 1 Tablet(s) PO QD 06/09/201006/23 Inactive Lactulose 10 gram/15 mL Oral Soln RxNorm: 864436 1 Unit Dose PO QD 06/09/2010 07/13/2010 Inactive Prevacid 30 mg Cap RxNorm: 793764 1 Capsule(s) PO QD 06/09/201007/13 Inactive Synthroid 112 mcg Tab RxNorm: 622913 1 Tablet(s) PO QD 06/09/2010 Inactive Symbicort 160 mcg-4.5 mcg/Actuation Inhalation HFA Aer osol Inhaler RxNorm: 1029446 2 Puff(s) INH BID 06/09/2010 07/13/2010 Inactive Omnicef 300 mg Cap RxNorm: 985207 2 Capsule(s) PO QD 05/07/201005/20 Inactive Metformin 500 mg Tab RxNorm: 662726 1 Tablet(s) PO QD 05/06/201005/22 Inactive ProAir HFA 90 mcg/Actuation Aerosol Inhaler RxNorm: 6851527 2 Puff(s) INH Q4H prn shortness of breath 05/06/2010 No Stop Date Active lactulose 10 gram/15 mL Oral Soln RxNorm: 409251 1 Unit Dose PO QD 05/06/2010 06/10/2011 Inactive Loratadine 10 mg Tab RxNorm: 701274 1 Tablet(s) PO QD 05/06/201005/22 Inactive Synthroid 112 mcg Tab RxNorm: 335312 1 Tablet(s) PO QD 05/06/2010 Inactive Symbicort 160 mcg-4.5 mcg/Actuation Inhalation HFA Aer osol Inhaler RxNorm: 5822586 2 Puff(s) INH BID 05/06/2010 06/08/2010 Inactive Gabapentin 800 mg Tab RxNorm: 613163 1 Tablet(s) PO QD 05/06/2010 Inactive 16.2 mg-0.1037 mg-0.0194 mg Tab RxNorm: 8757154 2 Tablet(s) PO TID PRN for gas and cramping 05/06/2010 05/12/2010 Inactive Zofran 4 mg Tab RxNorm: 002443 1 Tablet(s) PO Q4H prn nausea 200904/13/2010 Inactive MS Contin 60 mg Tab RxNorm: 671526 3 Tablet(s) PO BID 04/09/201004/22 Inactive Soma 350 mg Tab RxNorm: 651070 2 Tablet(s) PO TID 04/09/2010 05/08/20 Inactive Symbicort 160 mcg-4.5 mcg/Actuation Inhalation HFA Aer osol Inhaler RxNorm: 6373184 2 Puff(s) INH BID 04/08/2010 05/05/2010 Inactive Doxycycline 100 mg Cap RxNorm: 9672613 1 Capsule(s) PO BID 04/08/20 10 04/17/2010 Inactive Triamterene-Hydrochlorothiazide 37.5 mg-25 mg Cap RxNorm: 19 8316 1 Capsule(s) PO QAM 04/08/2010 09/04/2010 Inactive fluoxetine 40 mg Cap RxNorm: 388749 1 Capsule(s) PO QAM 04/08/2010 Inactive Morphine SR 120 mg multiphase 24 hr Cap RxNorm: 418789 1 Capsul e(s) PO 03/11/2010 04/07/2010 Inactive Endocet 10 mg-325 mg Tab RxNorm: 3474194 1-2 Tablet(s) PO Q4H CT N PAIN 03/11/2010 04/09/2010 Inactive Savella 100 mg Tab RxNorm: 442252 1 Tablet(s) PO BID 03/10/201004/09 Inactive Soma 350 mg Tab RxNorm: 748911 1 Tablet(s) PO TID prn spasm 010 04/09/2010 Inactive Savella 100 mg Tab RxNorm: 695013 1 Tablet(s) PO BID 02/03/201004/09 Inactive Aspirin 81 mg Tab RxNorm: 434971 1 Tablet(s) PO QD No Start Date Active Zyrtec 10 mg Tab RxNorm: 3084582 1 Tablet(s) PO QD No Start Date Active One Touch Ultra Test Strips RxNorm: Misc test at least t wice daily. No Start Date Active coenzyme Q10 200 mg capsule RxNorm: 924498 1 Capsule(s) PO QD No Star t Date Active One Touch Ultra Test Strips RxNorm: InVt BID Zainab t blood sugar at least twice daily. No Start Date 11/10/2010 Inactive Gabapentin 800 mg Tab RxNorm: 590748 1 Tablet(s) PO QD No Start Date 05/05/2010 Inactive Abilify 5 mg tablet RxNorm: 491633 1 Tablet(s) PO QD No Start Date Inactive Chantix 1 mg Tab RxNorm: 849826 1 Tablet(s) PO BID No Start Date 10/22 Inactive Ozempic 0.25 mg or 0.5 mg (2 mg/1.5 mL) subcutaneous p en injector RxNorm: 8965298 .25 Milligram(s) SQ QW No Start Date 07/04/2019 Inactive lancets 28 gauge RxNorm: Miscellaneous As needed for blo od glucose sticks No Start Date 08/23/2013 Inactive potassium chloride ER 20 mEq tablet,extended release RxNorm: 679737 2 Tablet(s) PO QD No Start Date 09/26/2018 Inactive Ventolin HFA 90 mcg/actuation Aerosol Inhaler RxNorm: 224134 1 2 Puff(s) INH Q4H prn No Start Date 01/17/2012 Inactive potassium chloride ER 20 mEq tablet,extended release RxNorm: 856676 2 Tablet(s) PO QD No Start Date 10/19/2018 Inactive Januvia 100 mg tablet RxNorm: 612327 1 Tablet(s) PO QD No Start Date 09/10/2015 Inactive Medrol (Aníbal) 4 mg Tabs in a Dose Pack RxNorm: 574351 Tablet(s) PO N o Start Date 08/09/2011 Inactive as directed Zithromax Z-Aníbal 250 mg Tab RxNorm: 684428 Tablet(s) PO No Start Date 01/25/2012 Inactive as directed vitamin B6-vitamin E-magnesium tablet RxNorm: 1 Tablet(s ) PO QHS with INH No Start Date 03/30/2018 Inactive prednisone 20 mg Tab RxNorm: 968338 1 Tablet(s) PO TID for 1wk then 1 po BID for 1wk No Start Date 01/25/2012 Inactive furosemide 40 mg tablet RxNorm: 982592 1 Tablet(s) PO QAM No Start Date 10/09/2018 Inactive Vitamin D3 1000 units Capsule RxNorm: 1 Capsule(s) PO TID No S tart Date 03/19/2015 Inactive Zofran 4 mg Tab RxNorm: 560095 1 Tablet(s) PO Q4H prn nausea No Sta rt Date 04/13/2010 Inactive Premarin 0.625 mg/g Vaginal Cream RxNorm: 660456 1 Gram (s) VAG QHS 3 times a week No Start Date 09/22/2017 Inactive oxycodone 10 mg tablet RxNorm: 1496758 1-2 Tablet(s) PO QID as n eeded for pain No Start Date 11/04/2015 Inactive Nicoderm CQ 21 mg/24 hr daily Patch RxNorm: 417703 1 Applicatio n TD QD No Start Date 08/05/2015 Inactive Topamax 50 mg tablet RxNorm: 565695 1/2 Tablet(s) PO QH S for 1wk then 1 po q HS for 1wk then 2 po q HS No Start Date 06/27/2012 Inactive Chantix Starting Month Aníbal 0.5 mg (11)-1 mg (3x14) Tab s in a Dose Pack RxNorm: 671969 Tablet(s) PO as directed No Start Date 03/01/2011 Inactive Trulicity 0.75 mg/0.5 mL subcutaneous pen injector RxNorm: 1 304227 Milliliter(s) SQ No Start Date 07/04/2019 Inactive Medrol (Aníbal) 4 mg Tabs in a Dose Pack RxNorm: 905255 Tablet(s) PO N o Start Date 01/25/2012 Inactive as directed Duragesic 100 mcg/hr Transderm Patch RxNorm: 002471 2 A pplication TD Q48H for pain No Start Date 09/05/2013 Inactive Premarin 0.9 mg Tab RxNorm: 501361 1 Tablet(s) PO QD No Start Date Inactive Zithromax Z-Aníbal 250 mg Tab RxNorm: 641424 Tablet(s) PO as direc chinmay No Start Date 01/25/2012 Inactive ondansetron 8 mg disintegrating tablet RxNorm: 376515 1 Tablet(s) PO Q6H as needed No Start Date 10/10/2018 Inactive oxycodone 15 mg tablet RxNorm: 1285092 1 Tablet(s) PO QID as nee ded for pain No Start Date 03/05/2019 Inactive ProAir HFA 90 mcg/Actuation Aerosol Inhaler RxNorm: 581524 2 Puff(s) INH Q4H prn for wheezing or shortness of breath No Start Date 12/21/2011 Inactive pravastatin 40 mg tablet RxNorm: 106859 1/2 Tablet(s) PO QOD No Sta rt Date 04/09/2015 Inactive ipratropium-albuterol 0.5 mg-3 mg(2.5 mg base)/3 mL ne bulization soln RxNorm: 7227979 1 Unit Dose INH Q4H as needed No Start Date 09/09/2016 Inactive furosemide 40 mg tablet RxNorm: 516879 1 Tablet(s) PO QAM as ne eded No Start Date 09/24/2019 Inactive Vitamin D2 oral RxNorm: 4018 oral No Start Date 03/18/2015 Inacti ve pravastatin 40 mg tablet RxNorm: 803694 1/2 Tablet(s) PO QD No Star t Date 04/09/2015 Inactive ondansetron HCl 4 mg tablet RxNorm: 557719 1 Tablet(s) PO Q4H as needed for nausea and vomiting No Start Date 04/07/2016 Inactive furosemide 40 mg tablet RxNorm: 624026 2 Tablet(s) PO QAM No Start Date 09/26/2018 Inactive gabapentin 800 mg tablet RxNorm: 967193 1/2 Tablet(s) PO BID No Sta rt Date 06/21/2017 Inactive gabapentin 800 mg tablet RxNorm: 199780 1/2 Tablet(s) PO BID No Sta rt Date 07/05/2017 Inactive ProAir HFA 90 mcg/Actuation Aerosol Inhaler RxNorm: 4112129 2 Puff(s) INH Q4H prn shortness of breath No Start Date 05/05/2010 Inactive scopolamine 1 mg over 3 days transdermal patch RxNorm: 60038 2 1 Application TD behind ear. Take off after three days No Start Date 10/10/2018 Inactive Metformin 500 mg Tab RxNorm: 845103 1 Tablet(s) PO QD No Start Date 0 05/05/2010 Inactive MS Contin 200 mg Tab RxNorm: 876998 1 Tablet(s) PO BID No Start Date 08/20/2011 Inactive Belladonna-Phenobarbital 48 mg tablet,extended release RxNor m: 2 Tablet(s) PO TID No Start Date 06/04/2016 Inactive Synthroid 112 mcg Tab RxNorm: 043236 1 Tablet(s) PO QD No Start Date 05/05/2010 Inactive Zegerid 40 mg-1.1 gram Cap RxNorm: 471867 1 Capsule(s) PO QD No Sta rt Date 01/25/2012 Inactive Premarin 0.625 mg/g Vaginal Cream RxNorm: 289547 VAG In sert 1gm vaginally at bedtime 3 times weekly No Start Date 01/17/2011 Inactive potassium chloride ER 20 mEq tablet,extended release RxNorm: 760995 1 Tablet(s) PO QD No Start Date 04/24/2019 Inactive methocarbamol 750 mg tablet RxNorm: 940399 2 Tablet(s) PO TID as needed for muscle spasm No Start Date 07/08/2014 Inactive Biaxin XL Aníbal 500 mg 24 hr Tab RxNorm: 498541 Tablet(s) PO as d irected No Start Date 04/24/2013 Inactive Vitamin D3 1,000 unit tablet RxNorm: 347297 3 Tablet(s) PO QD No St art Date 06/01/2017 Inactive Morphine SR 120 mg multiphase 24 hr Cap RxNorm: 467012 1 Capsul e(s) PO BID No Start Date 04/09/2010 Inactive Silvadene 1 % topical cream RxNorm: 675455 1 Application TOP BI D to burn area No Start Date 01/31/2017 Inactive Prednisone 20 mg Tab RxNorm: 478190 1 Tablet(s) PO TID for 3days then BID for 4days No Start Date 01/25/2012 Inactive gabapentin 600 mg tablet RxNorm: 845409 1 Tablet(s) PO BID No Start Date 01/21/2015 Inactive topiramate 50 mg tablet RxNorm: 820504 1 Tablet(s) PO QHS No Start Date 03/30/2018 Inactive Januvia 100 mg tablet RxNorm: 533159 1/2 Tablet(s) PO QD No Start D ate 12/25/2015 Inactive Diazepam 10 mg Tab RxNorm: 517052 1 Tablet(s) PO BID and PRN No Sta rt Date 06/08/2010 Inactive Medication Administered No Medication Administered data Immunizations Vaccine Codes Date Status Influenza CVX: 141 09/28/2012 Pneumovax Unknown 09/28/2012 Influenza (Adult) CVX: 141 09/02/2010 Results No Results data Procedures Procedure Codes Date THER/PROPH/DIAG INJ SC/IM CPT-4: 43873 07/10/2019 METHYLPREDNISOLONE INJECTION CPT-4: J2930 07/10/2019 URINALYSIS NONAUTO W/O SCOPE CPT-4: 22767 09/06/2018 URINE CULTURE/ COLONY COUNT CPT-4: 33063 09/06/2018 DRAIN/INJECT JOINT/BURSA CPT-4: 22325 04/29/2017 TRIAMCINOLONE ACET INJ NOS CPT-4: J3301 04/29/2017 DEXAMETHASONE SODIUM PHOS CPT-4: J1100 04/29/2017 INFLUENZA ASSAY W/OPTIC CPT-4: 47979 12/01/2016 RESPIRATORY CULTURE & STAIN CPT-4: 72006 07/09/2016 TB INTRADERMAL TEST CPT-4: 38109 04/21/2016 DRAIN/INJECT JOINT/BURSA CPT-4: 88637 11/07/2013 METHYLPREDNISOLONE 40 MG INJ CPT-4: J1030 11/07/2013 TRIAMCINOLONE ACET INJ NOS CPT-4: J3301 11/07/2013 DRAIN/INJECT JOINT/BURSA CPT-4: 61264 08/08/2013 METHYLPREDNISOLONE 40 MG INJ CPT-4: J1030 08/08/2013 TRIAMCINOLONE ACET INJ NOS CPT-4: J3301 08/08/2013 FLU VACCINE 3 YRS & > IM UP 64 CPT-4: 14062 2 PNEUMOCOCCAL VACC 23 ADITYA IM CPT-4: 22120 09/28/2012 IMMUNIZATION ADMIN CPT-4: 93416 09/28/2012 IMMUNIZATION ADMIN EACH ADD CPT-4: 80163 09/28/2012 FLU VACCINE 3 YRS & > IM UP 64 CPT-4: 48356 0 IMMUNIZATION ADMIN CPT-4: 49339 09/02/2010 METHYLPREDNISOLONE INJECTION CPT-4: J2930 05/07/2010 THER/PROPH/DIAG INJ SC/IM CPT-4: 48477 05/07/2010 Vital Signs Date Vital 11/29/2019 Blood [...] 1: 122/78 Code: 8480-6 BMI: 29.5 Code: 56185-4 Heart Rate 1: 76 bpm Height: 5'4" Respiratory Rate: 20 bpm SpO2: 96% Tempera ture: 37.0 (C) / 98.6 (F) Weight: 172 lbs 01/25/2019 Blood Pressure 1: 132/80 Code: 8480-6 BMI: 29.7 Code: 21830-6 Heart Rate 1: 84 bpm Height: 5'4" Respiratory Rate: 22 bpm SpO2: 98% Tempera ture: 36.9 (C) / 98.4 (F) Weight: 173 lbs 01/03/2019 Blood Pressure 1: 116/70 Code: 8480-6 BMI: 29.5 Code: 51977-3 Heart Rate 1: 92 bpm Height: 5'4" Respiratory Rate: 24 bpm SpO2: 98% Tempera ture: 37.2 (C) / 98.9 (F) Weight: 172 lbs 11/21/2018 Blood Pressure 1: 146/82 Code: 8480-6 BMI: 28.2 Code: 79256-0 Heart Rate 1: 88 bpm Height: 5'4" Respiratory Rate: 22 bpm SpO2: 97% Tempera ture: 36.9 (C) / 98.4 (F) Weight: 164 lbs 10/27/2018 Blood Pressure 1: 122/70 Code: 8480-6 BMI: 27.6 Code: 66371-5 Heart Rate 1: 88 bpm Height: 5'4" Respiratory Rate: 20 bpm SpO2: 96% Tempera ture: 36.8 (C) / 98.3 (F) Weight: 161 lbs 10/18/2018 Blood Pressure 1: 126/70 Code: 8480-6 BMI: 28.3 Code: 51677-4 Heart Rate 1: 76 bpm Height: 5'4" Respiratory Rate: 20 bpm SpO2: 95% Tempera ture: 37.0 (C) / 98.6 (F) Weight: 165 lbs 09/27/2018 Blood Pressure 1: 124/78 Code: 8480-6 BMI: 27.1 Code: 35677-3 Heart Rate 1: 88 bpm Height: 5'4" Respiratory Rate: 20 bpm SpO2: 98% Tempera ture: 36.4 (C) / 97.6 (F) Weight: 158 lbs 09/14/2018 Blood Pressure 1: 140/72 Code: 8480-6 BMI: 26.1 Code: 69926-4 Heart Rate 1: 100 bpm Height: 5'4" Respiratory Rate: 20 bpm SpO2: 97% Tempera ture: 36.9 (C) / 98.4 (F) Weight: 152 lbs 09/06/2018 Blood Pressure 1: 156/82 Code: 8480-6 BMI: 26.3 Code: 50719-0 Heart Rate 1: 100 bpm Height: 5'4" Respiratory Rate: 28 bpm SpO2: 95% Tempera ture: 37.2 (C) / 98.9 (F) Weight: 153 lbs 08/16/2018 Blood Pressure 1: 130/78 Code: 8480-6 Heart Rate 1: 87 bpm Respiratory Rate: 24 bpm SpO2: 94% Temperature: 36.9 (C) / 98.4 (F) We ight: 147 lbs 8 oz 07/07/2018 Blood Pressure 1: 116/78 Code: 8480-6 BMI: 22.7 Code: 44149-9 Heart Rate 1: 88 bpm Height: 5'4" Respiratory Rate: 22 bpm SpO2: 98% Tempera ture: 36.5 (C) / 97.7 (F) Weight: 132 lbs 05/31/2018 Blood Pressure 1: 128/78 Code: 8480-6 BMI: 22.3 Code: 26992-8 Heart Rate 1: 92 bpm Height: 5'4" Respiratory Rate: 26 bpm SpO2: 94% Tempera ture: 36.7 (C) / 98.1 (F) Weight: 130 lbs 03/31/2018 Blood Pressure 1: 136/78 Code: 8480-6 BMI: 21.5 Code: 61948-3 Heart Rate 1: 76 bpm Height: 5'4" Respiratory Rate: 24 bpm SpO2: 95% Tempera ture: 36.8 (C) / 98.3 (F) Weight: 125 lbs 01/26/2018 Blood Pressure 1: 142/64 Code: 8480-6 BMI: 20.6 Code: 41676-9 Heart Rate 1: 90 bpm Height: 5'4" Respiratory Rate: 24 bpm SpO2: 92% Tempera ture: 36.3 (C) / 97.3 (F) Weight: 120 lbs 10/26/2017 Blood Pressure 1: 124/70 Code: 8480-6 BMI: 20.3 Code: 10918-8 Heart Rate 1: 76 bpm Height: 5'4" Respiratory Rate: 22 bpm SpO2: 94% Tempera ture: 36.7 (C) / 98.1 (F) Weight: 118 lbs 09/23/2017 Blood Pressure 1: 106/70 Code: 8480-6 BMI: 19.2 Code: 62471-9 Heart Rate 1: 76 bpm Height: 5'4" Respiratory Rate: 20 bpm SpO2: 94% Tempera ture: 36.8 (C) / 98.3 (F) Weight: 112 lbs 08/12/2017 Blood Pressure 1: 116/68 Code: 8480-6 BMI: 20.1 Code: 00264-3 Heart Rate 1: 80 bpm Height: 5'4" Respiratory Rate: 22 bpm SpO2: 95% Tempera ture: 36.8 (C) / 98.2 (F) Weight: 117 lbs 07/06/2017 Blood Pressure 1: 136/78 Code: 8480-6 BMI: 20.6 Code: 23966-3 Heart Rate 1: 76 bpm Height: 5'4" Respiratory Rate: 24 bpm SpO2: 96% Tempera ture: 36.8 (C) / 98.2 (F) Weight: 120 lbs 06/02/2017 Blood Pressure 1: 112/70 Code: 8480-6 Heart Rate 1: 92 bpm Height: 5'4" Respiratory Rate: 24 bpm SpO2: 95% Temperature: 37.0 (C) / 98.6 (F) Weight: 04/29/2017 Blood Pressure 1: 94/52 Code: 8480-6 BMI: 19.6 C ode: 92071-6 Heart Rate 1: 84 bpm Height: 5'4" [...] 92/58 Code: 8480-6 BMI: 19.2 C ode: 44906-8 Heart Rate 1: 84 bpm Height: 5'4" Respiratory Rate: 26 bpm SpO2: 95% Tempera ture: 36.7 (C) / 98.0 (F) Weight: 112 lbs 12/01/2016 Blood Pressure 1: 114/70 Code: 8480-6 BMI: 19.2 Code: 64406-8 Heart Rate 1: 96 bpm Height: 5'4" Respiratory Rate: 28 bpm SpO2: 93% Tempera ture: 38.3 (C) / 101.0 (F) Weight: 112 lbs 10/27/2016 Blood Pressure 1: 126/66 Code: 8480-6 BMI: 19.6 Code: 57790-6 Heart Rate 1: 92 bpm Height: 5'4" Respiratory Rate: 28 bpm SpO2: 90% Tempera ture: 36.8 (C) / 98.3 (F) Weight: 114 lbs 09/09/2016 Blood Pressure 1: 126/74 Code: 8480-6 Heart Rate 1: 104 bpm Height: 5'4" Respiratory Rate: 32 bpm SpO2: 88% Temperature: 37 .2 (C) / 99.0 (F) 08/26/2016 Blood Pressure 1: 134/82 Code: 8480-6 BMI: 22.0 Code: 84403-5 Heart Rate 1: 84 bpm Height: 5'4" Respiratory Rate: 24 bpm SpO2: 94% Tempera ture: 36.8 (C) / 98.3 (F) Weight: 128 lbs 05/21/2016 Blood Pressure 1: 142/80 Code: 8480-6 BMI: 21.6 Code: 66541-4 Heart Rate 1: 104 bpm Height: 5'4" Respiratory Rate: 22 bpm SpO2: 93% Tempera ture: 36.0 (C) / 96.8 (F) Weight: 126 lbs 03/25/2016 Blood Pressure 1: 126/62 Code: 8480-6 Heart Rate 1: 88 bpm Respiratory Rate: 20 bpm SpO2: 92% Temperature: 36.8 (C) / 98.3 (F) We ight: 130 lbs 01/23/2016 Blood Pressure 1: 146/82 Code: 8480-6 BMI: 24.1 Code: 26870-0 Heart Rate 1: 92 bpm Height: 5'3" Respiratory Rate: 22 bpm Temperature: 37 .1 (C) / 98.8 (F) Weight: 136 lbs 12/26/2015 Blood Pressure 1: 142/78 Code: 8480-6 BMI: 24.6 Code: 97461-8 Heart Rate 1: 78 bpm Height: 5'3" Respiratory Rate: 20 bpm Temperature: 36 .7 (C) / 98.1 (F) Weight: 139 lbs 12/03/2015 Blood Pressure 1: 126/60 Code: 8480-6 BMI: 24.6 Code: 40569-9 Heart Rate 1: 100 bpm Height: 5'3" Respiratory Rate: 28 bpm Temperature: 37 .6 (C) / 99.6 (F) Weight: 139 lbs 09/10/2015 Blood Pressure 1: 124/64 Code: 8480-6 BMI: 23.7 Code: 97007-5 Heart Rate 1: 88 bpm Height: 5'3" Respiratory Rate: 24 bpm SpO2: 95% Tempera ture: 36.4 (C) / 97.6 (F) Weight: 134 lbs 08/06/2015 Blood Pressure 1: 114/76 Code: 8480-6 BMI: 23.2 Code: 67124-9 Heart Rate 1: 88 bpm Height: 5'3" Respiratory Rate: 22 bpm Temperature: 36 .6 (C) / 97.9 (F) Weight: 131 lbs 07/18/2015 Blood Pressure 1: 144/78 Code: 8480-6 BMI: 23.7 Code: 74579-5 Heart Rate 1: 84 bpm Height: 5'3" Respiratory Rate: 20 bpm Temperature: 37 .2 (C) / 99.0 (F) Weight: 134 lbs 04/10/2015 Blood Pressure 1: 110/64 Code: 8480-6 Heart Rate 1: 80 bpm Height: Respiratory Rate: 20 bpm Temperature: 37.1 (C) / 98.8 (F) Weight: 03/05/2015 Blood Pressure 1: 136/80 Code: 8480-6 BMI: 23.9 Code: 66389-5 Heart Rate 1: 76 bpm Height: 5'3" Respiratory Rate: 24 bpm Temperature: 37 .0 (C) / 98.6 (F) Weight: 135 lbs 01/30/2015 Blood Pressure 1: 142/80 Code: 8480-6 BMI: 23.0 Code: 07439-1 Heart Rate 1: 96 bpm Height: 5'3" Respiratory Rate: 22 bpm Temperature: 36 .2 (C) / 97.2 (F) Weight: 130 lbs 01/02/2015 Blood Pressure 1: 124/70 Code: 8480-6 BMI: 23.4 Code: 72629-2 Heart Rate 1: 84 bpm Height: 5'3" Respiratory Rate: 24 bpm SpO2: 95% Tempera ture: 36.9 (C) / 98.5 (F) Weight: 132 lbs 10/03/2014 Blood Pressure 1: 106/68 Code: 8480-6 BMI: 22.5 Code: 38862-5 Heart Rate 1: 88 bpm Height: 5'3" Respiratory Rate: 24 bpm Temperature: 37 .0 (C) / 98.6 (F) Weight: 127 lbs 08/27/2014 Blood Pressure 1: 124/68 Code: 8480-6 BMI: 21.1 Code: 69406-1 Heart Rate 1: 88 bpm Height: 5'3" [...] 1: 120/70 Code: 8480-6 BMI: 19.2 Code: 14986-2 Heart Rate 1: 70 bpm Height: 5'4" Respiratory Rate: 20 bpm Temperature: 36 .9 (C) / 98.4 (F) Weight: 112 lbs 06/28/2013 Blood Pressure 1: 102/68 Code: 8480-6 BMI: 19.6 Code: 21616-4 Heart Rate 1: 76 bpm Height: 5'4" Respiratory Rate: 20 bpm Temperature: 36 .8 (C) / 98.2 (F) Weight: 114 lbs 05/31/2013 Blood Pressure 1: 106/70 Code: 8480-6 BMI: 18.9 Code: 59869-8 Heart Rate 1: 100 bpm Height: 5'4" Respiratory Rate: 20 bpm Temperature: 36 .4 (C) / 97.6 (F) Weight: 110 lbs 05/03/2013 Blood Pressure 1: 126/70 Code: 8480-6 BMI: 19.1 Code: 49309-2 Heart Rate 1: 88 bpm Height: 5'4" Respiratory Rate: 20 bpm Temperature: 37 .1 (C) / 98.8 (F) Weight: 111 lbs 04/25/2013 Blood Pressure 1: 114/68 Code: 8480-6 BMI: 19.4 Code: 05450-3 Heart Rate 1: 92 bpm Height: 5'4" Respiratory Rate: 24 bpm SpO2: 96% Tempera ture: 37.7 (C) / 99.8 (F) Weight: 113 lbs 03/08/2013 Blood Pressure 1: 94/68 Code: 8480-6 BMI: 21.3 C ode: 17400-3 Heart Rate 1: 88 bpm Height: 5'4" Respiratory Rate: 24 bpm Temperature: 37 .0 (C) / 98.6 (F) Weight: 124 lbs 02/07/2013 Blood Pressure 1: 106/64 Code: 8480-6 BMI: 21.8 Code: 43856-8 Heart Rate 1: 84 bpm Height: 5'4" Respiratory Rate: 22 bpm Temperature: 36 .8 (C) / 98.2 (F) Weight: 127 lbs 01/10/2013 Blood Pressure 1: 122/68 Code: 8480-6 BMI: 21.6 Code: 99960-6 Heart Rate 1: 94 bpm Height: 5'4" SpO2: 94% Temperature: 36.7 (C) / 98.1 (F) Weight: 126 lbs 09/28/2012 Blood Pressure 1: 124/78 Code: 8480-6 BMI: 24.9 Code: 07464-9 Heart Rate 1: 92 bpm Height: 5'4" Respiratory Rate: 20 bpm Temperature: 36 .7 (C) / 98.1 (F) Weight: 145 lbs 06/28/2012 Blood Pressure 1: 134/80 Code: 8480-6 BMI: 24.9 Code: 87925-8 Heart Rate 1: 76 bpm Height: 5'4" Respiratory Rate: 20 bpm Temperature: 36 .8 (C) / 98.2 (F) Weight: 145 lbs 05/03/2012 Blood Pressure 1: 108/62 Code: 8480-6 BMI: 25.6 Code: 22790-0 Heart Rate 1: 88 bpm Height: 5'4" Temperature: 36.2 (C) / 97.2 (F) Weight: 149 lbs 03/01/2012 Blood Pressure 1: 124/66 Code: 8480-6 BMI: 25.1 Code: 12204-5 Heart Rate 1: 76 bpm Height: 5'4" Respiratory Rate: 20 bpm Temperature: 36 .6 (C) / 97.9 (F) Weight: 146 lbs 01/26/2012 Blood Pressure 1: 118/82 Code: 8480-6 BMI: 25.1 Code: 01514-1 Heart Rate 1: 74 bpm Height: 5'4" Temperature: 36.8 (C) / 98.2 (F) Weight: 146 lbs 11/03/2011 Blood Pressure 1: 126/80 Code: 8480-6 BMI: 27.3 Code: 01024-4 Heart Rate 1: 72 bpm Height: 5'4" [...] prozac Encounters Encounter Performer Location Codes Date ([id number]) OFFICE/OUTPATIENT VISIT EST Diagnosis: Chronic pain syndrome[ICD10: G89.4] Diagnosis: Localized edema[ICD10: R60.0] Diagnosis: Chronic obstructive pulmonary disease, unspecified[ICD10: J44.9] Diagnosis: Other fatigue[ICD10: R53.83] Diagnosis: Muscle weakness (generalized)[ICD10: M62.81] Diagnosis: Spinal stenosis, lumbar region with neurogenic claudication[ICD10: M48.062] Vika [facility]IA [facility] CPT-4: 97374 11/29/2019 ([id number]) OFFICE/OUTPATIENT VISIT EST Diagnosis: Chronic pain syndrome[ICD10: G89.4] Diagnosis: Lumbar degenerative disc disease[ICD10: M51.36] Diagnosis: Muscle spasm[ICD10: M62.838] Diagnosis: Spinal stenosis, lumbar region with neurogenic claudication[ICD10: M48.062] Diagnosis: Spondylosis without myelopathy or radiculopathy, 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] Vika RENTERIA [place] CPT-4: 44528 10/30/2019 ([id number]) OFFICE/OUTPATIENT VISIT EST Diagnosis: Chronic pain syndrome[ICD10: G89.4] Vika RENTERIA [place] CPT-4: 41658 10/25/2019 ([id number]) OFFICE/OUTPATIENT VISIT EST Diagnosis: Epigastric pain[ICD10: R10.13] Diagnosis: Nausea[ICD10: R11.0] Diagnosis: Chronic obstructive pulmonary disease, unspecified[ICD10: J44.9] Vika RENTERIA [facility] CPT-4: 94121 07/26/2019 ([id number]) OFFICE/OUTPATIENT VISIT EST Diagnosis: Chronic obstructive pulmonary disease with (acute) exacerbation[ICD10: J44.1] Diagnosis: Chronic respiratory failure with hypoxia[ICD10: J96.11] Diagnosis: Other fatigue[ICD10: R53.83] Diagnosis: Edema, unspecified[ICD10: R60.9] Vika RENTERIA [employer] [facility] CPT-4: 71063 07/19/2019 ([id number]) OFFICE/OUTPATIENT VISIT EST Diagnosis: Chronic obstructive pulmonary disease with acute lower respiratory infection[ICD10: J44.0] Vika RENTERIA DO [facility] CPT-4: 23557 07/10/2019 ([id number]) OFFICE/OUTPATIENT VISIT EST Diagnosis: Type 2 diabetes mellitus with hyperglycemia[ICD10: E11.65] Diagnosis: Other infective otitis externa, left ear[ICD10: H60.392] Vika RENTERIA [employer] [facility] CPT-4: 36536 06/05/2019 ([id number]) OFFICE/OUTPATIENT VISIT EST Diagnosis: Chronic obstructive pulmonary disease with (acute) exacerbation[ICD10: J44.1] Diagnosis: Type 2 diabetes mellitus with hyperglycemia[ICD10: E11.65] Vika RENTERIA [employer] [facility] CPT-4: 70036 05/03/2019 ([id number]) OFFICE/OUTPATIENT VISIT EST Diagnosis: Type 2 diabetes mellitus with hyperglycemia[ICD10: E11.65] Diagnosis: Abnormal weight gain[ICD10: R63.5] Diagnosis: Chronic obstructive pulmonary disease with acute lower respiratory infection[ICD10: J44.0] Vika RENTERIA DO [facility] CPT-4: 69498 04/11/2019 ([id number]) OFFICE/OUTPATIENT VISIT EST Diagnosis: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
--- OUTSIDE RECORDS SUMMARY | 2020-04-24 23:29 | XMS REPORT | CCD ---
Author Author Yana Renteria D.O. 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 Role Phone Vika Renteria D.O., PP Unavailable CCM Unavailable Summary Purpose Interface Exchange Insurance Providers Payer name Policy type / Coverage type Covered republican ID Effective Begin Date Effective End Date [employer] [facility] Medicaid [id number] 2018 U nknown Family History Family History data not found Social History Social History Element Codes Description Effective Dates Marital status Unknown 06/28/[address]: 45421783 Currently smokes tobacco 05/2013 Allergies, Adverse Reactions, Alerts Substance Reaction Codes Entered Date Inactivated Date Status Other Unknown 06/28/2013 No Inactive Date Active * NO KNOWN FOOD ALLERGIES Unknown 06/28/2013 No Inactiv e Date Active * NO KNOWN DRUG ALLERGIES Unknown 05/07/2010 No Inactiv e Date Active Problems Condition Codes Effective Dates Condition Status Chronic obstructive pulmonary disease, unspecified ICD -9: [...] mg tablets in a dose pack RxNorm: 077628 6 Tablet(s) Oral QD --then as directed 11/30/2019 12/05/2019 Active MS Contin 200 mg tablet,extended release RxNorm: 249901 1 Tablet(s) Oral two times a day 11/29/2019 12/29/2019 Active cyclobenzaprine 10 mg tablet RxNorm: 272910 TAKE ONE TA BLET BY MOUTH THREE TIMES A DAY NEEDED 11/21/2019 No Stop Date Active MS Contin 200 mg tablet,extended release RxNorm: 889179 1 Tablet(s) Oral two times a day replaces 100mg dose 11/03/2019 11/02/2019 Inactive MS Contin 200 mg tablet,extended release RxNorm: 369664 1 Tablet(s) Oral two times a day replaces 100mg dose 11/03/2019 11/29/2019 Inactive ferrous sulfate 325 mg (65 mg iron) tablet RxNorm: 061757 1 Tab let(s) Oral QD 10/30/2019 No Stop Date Active MS Contin 100 mg tablet,extended release RxNorm: 156167 1 Table t(s) Oral QD 10/30/2019 10/29/2019 Inactive MS Contin 100 mg tablet,extended release RxNorm: 033284 1 Table t(s) Oral QD 10/30/2019 11/02/2019 Inactive Relistor 150 mg tablet RxNorm: 5645076 TAKE THREE TABLETS BY BENOIT TH DAILY 10/25/2019 No Stop Date Active pantoprazole 40 mg tablet,delayed release RxNorm: 983763 1 Tabl et(s) Oral QD 10/25/2019 No Stop Date Active metformin 500 mg tablet RxNorm: 822425 1 Tablet(s) Oral QD 10/25/20 19 No Stop Date Active levothyroxine 25 mcg tablet RxNorm: 232609 1 Tablet(s) Oral QAM 02/201912/23/2019 Active Minipress 2 mg capsule RxNorm: 544594 1 Capsule(s) Oral QAM and 3 at bedtime 10/25/2019 No Stop Date Active Lancets, Super Thin RxNorm: 1 Unit Dose Miscellaneous QD 9 11/27/2020 Active Cymbalta 60 mg capsule,delayed release RxNorm: 230232 1 Capsule (s) Oral QAM 10/25/2019 No Stop Date Active Cymbalta 30 mg capsule,delayed release RxNorm: 721293 1 Capsule (s) Oral QAM 10/25/2019 No Stop Date Active oxycodone 15 mg tablet RxNorm: 0325604 1 Tablet(s) Oral four times a day as needed for pain 10/25/2019 11/28/2019 Inactive levothyroxine 25 mcg tablet RxNorm: 662126 1 Tablet(s) Oral QAM 02/201910/24/2019 Inactive MS Contin 100 mg tablet,extended release RxNorm: 531108 1 Tablet(s) Oral two times a day replaces fentanyl 10/25/2019 10/25/2019 Inactive Premarin 0.45 mg tablet RxNorm: 295597 TAKE ONE TABLET BY MOUTH DAILY 10/24/2019 No Stop Date Active Duragesic 100 mcg/hr transdermal patch RxNorm: 308359 2 Application TD Q48H for pain 10/18/2019 10/24/2019 Inactive gabapentin 300 mg capsule RxNorm: 973608 TAKE ONE CAPSULE BY MO UTH TWICE A DAY 10/16/2019 No Stop Date Active cyclobenzaprine 10 mg tablet RxNorm: 296006 TAKE ONE TA BLET BY MOUTH THREE TIMES A DAY NEEDED 09/27/2019 11/20/2019 Inactive ProAir HFA 90 mcg/actuation aerosol inhaler RxNorm: 600843 INHALE ONE PUFF BY MOUTH EVERY 4 HOURS FOR WHEEZING OR FOR SHORTNESS OF BREATH 09/25/2019 No Stop Date Active furosemide 40 mg tablet RxNorm: 444210 1 Tablet(s) Oral QAM as needed 09/25/2019 09/25/2019 Inactive Relistor 150 mg tablet RxNorm: 2722492 TAKE THREE TABLETS BY BENOIT TH DAILY 09/25/2019 10/24/2019 Inactive oxycodone 15 mg tablet RxNorm: 5629052 1 Tablet(s) PO QID as nee ded for pain 09/21/2019 10/24/2019 Inactive Duragesic 100 mcg/hr transdermal patch RxNorm: 004485 2 Application TD Q48H for pain 09/19/2019 10/17/2019 Inactive Daliresp 500 mcg tablet RxNorm: 7375607 1 Tablet(s) Oral QD 019 03/08/2020 Active potassium chloride ER 20 mEq tablet,extended release RxNorm: 418555 TAKE ONE TABLET BY MOUTH DAILY 07/25/2019 01/20/2020 Active Relistor 150 mg tablet RxNorm: 8635298 TAKE THREE TABLETS BY BENOIT TH DAILY 07/25/2019 07/30/2019 Inactive cyclobenzaprine 10 mg tablet RxNorm: 709521 TAKE ONE TA BLET BY MOUTH THREE TIMES A DAY NEEDED 07/25/2019 09/22/2019 Inactive fluoxetine 40 mg capsule RxNorm: 437988 TAKE ONE CAPSULE BY BENOIT TH EVERY MORNING 07/11/2019 10/24/2019 Inactive Medrol (Aníbal) 4 mg tablets in a dose pack RxNorm: 710964 6 Tablet(s) PO QD --then as directed 07/10/2019 07/15/2019 Inactive omeprazole 40 mg capsule,delayed release RxNorm: 931323 1 Capsule(s) PO QD for stomach TAKE ONE CAPSULE BY MOUTH DAILY 07/10/2019 10/24/2019 Inactive Augmentin 875 mg-125 mg tablet RxNorm: 245705 1 Tablet(s) PO BID 07/16/2019 Inactive Trulicity 0.75 mg/0.5 mL subcutaneous pen injector RxNorm: 1 279771 0.75 Milliliter(s) SQ weekly 07/05/2019 10/24/2019 Inactive Compazine 10 mg tablet RxNorm: 010331 TAKE ONE TABLET B Y MOUTH FOUR TIMES A DAY NEEDED FOR NAUSEA 06/20/2019 07/19/2019 Inactive ProAir HFA 90 mcg/actuation aerosol inhaler RxNorm: 217542 INHALE ONE PUFF BY MOUTH EVERY 4 HOURS FOR WHEEZING OR FOR SHORTNESS OF BREATH 06/20/2019 06/23/2019 Inactive Daliresp 500 mcg tablet RxNorm: 0767052 TAKE ONE TABLET BY MOUTH DAILY 06/12/2019 09/10/2019 Inactive rcvbgqav-uykxcvjze-zkmvzctid 3.5 mg/mL-10,000 unit/mL- 1 % ear solution RxNorm: 941440 4 Drop(s) otic (ear) TID to left ear 06/05/2019 10/24/2019 Inac tive furosemide 40 mg tablet RxNorm: 719264 TAKE ONE TABLET BY MOUTH EVERY MORNING 05/26/2019 07/09/2019 Inactive Duragesic 100 mcg/hr transdermal patch RxNorm: 068911 2 Application TD Q48H for pain 05/16/2019 06/14/2019 Inactive oxycodone 15 mg tablet RxNorm: 2025603 1 Tablet(s) PO QID as nee ded for pain 05/10/2019 09/20/2019 Inactive doxycycline hyclate 100 mg capsule RxNorm: 0617681 1 Capsule(s) PO BID 05/03/2019 05/12/2019 Inactive prednisone 20 mg tablet RxNorm: 507712 1 Tablet(s) PO T ID for 3 days then 1 po BID for 3 days then one daily for 3 days 05/03/2019 07/11/2019 Inactiv e Ozempic 0.25 mg or 0.5 mg (2 mg/1.5 mL) subcutaneous p en injector RxNorm: 1150710 0.5 Milligram(s) SQ QW 05/03/2019 07/09/2019 Inactive fluconazole 100 mg tablet RxNorm: 333477 1 Tablet(s) PO QD 05/03/2005/07/2019 Inactive Premarin 0.45 mg tablet RxNorm: 938497 TAKE ONE TABLET BY MOUTH DAILY 05/03/2019 10/23/2019 Inactive potassium chloride ER 20 mEq tablet,extended release RxNorm: 007372 1 Tablet(s) PO QD 04/27/2019 07/25/2019 Inactive potassium chloride ER 20 mEq tablet,extended release RxNorm: 965445 1 Tablet(s) PO QD 04/25/2019 04/26/2019 Inactive Compazine 10 mg tablet RxNorm: 866444 1 Tablet(s) PO QID as nee ded for nausea 04/25/2019 05/04/2019 Inactive ProAir HFA 90 mcg/actuation aerosol inhaler RxNorm: 662167 INHALE ONE PUFF BY MOUTH EVERY 4 HOURS FOR WHEEZING OR FOR SHORTNESS OF BREATH 04/12/2019 06/10/2019 Inactive Medrol (Aníbal) 4 mg tablets in a dose pack RxNorm: 784117 6 Tablet(s) PO QD --then as directed 04/11/2019 04/16/2019 Inactive Symbicort 160 mcg-4.5 mcg/actuation HFA aerosol inhaler RxNo rm: 3917368 2 Puff(s) INH BID 04/10/2019 10/06/2019 Inactive levothyroxine 50 mcg tablet RxNorm: 984624 1 Tablet(s) PO QD 201810/24/2019 Inactive gabapentin 300 mg capsule RxNorm: 173227 1 Capsule(s) PO BID 201810/02/2019 Inactive Symbicort 160 mcg-4.5 mcg/actuation HFA aerosol inhaler RxNo rm: 3652898 2 Puff(s) INH BID 04/06/2019 04/09/2019 Inactive oxycodone 15 mg tablet RxNorm: 5511865 1 Tablet(s) PO QID as nee ded for pain 04/05/2019 05/09/2019 Inactive levothyroxine 50 mcg tablet RxNorm: 411292 1 Tablet(s) PO QD 201804/09/2019 Inactive furosemide 40 mg tablet RxNorm: 956778 TAKE ONE TABLET BY MOUTH EVERY MORNING 03/21/2019 04/19/2019 Inactive levothyroxine 50 mcg tablet RxNorm: 226520 TAKE ONE TABLET BY M OUTH DAILY 03/21/2019 03/27/2019 Inactive Duragesic 100 mcg/hr transdermal patch RxNorm: 055929 2 Application TD Q48H for pain 03/13/2019 04/11/2019 Inactive oxycodone 15 mg tablet RxNorm: 9650673 1 Tablet(s) PO QID as nee ded for pain 03/06/2019 04/04/2019 Inactive Relistor 150 mg tablet RxNorm: 1191787 3 Tablet(s) PO QD 02/28/2019 0 05/28/2019 Inactive cyclobenzaprine 10 mg tablet RxNorm: 369743 1 Tablet(s) PO TID as needed 02/28/2019 05/28/2019 Inactive phentermine 37.5 mg tablet RxNorm: 247820 1 Tablet(s) PO QAM 201803/15/2019 Inactive Duragesic 100 mcg/hr transdermal patch RxNorm: 777654 2 Application TD Q48H for pain 02/09/2019 03/10/2019 Inactive Daliresp 500 mcg tablet RxNorm: 3538895 TAKE ONE TABLET BY MOUTH DAILY 01/31/2019 05/30/2019 Inactive Premarin 0.45 mg tablet RxNorm: 320873 1 Tablet(s) PO QD 01/31/2019 0 04/30/2019 Inactive fluoxetine 40 mg capsule RxNorm: 767446 Capsule(s) TAKE ONE CAPSULE BY MOUTH EVERY MORNING 01/31/2019 04/30/2019 Inactive levothyroxine 50 mcg tablet RxNorm: 361723 1 Tablet(s) PO QD 201804/10/2019 Inactive follow up in 3 weeks levothyroxine 50 mcg tablet RxNorm: 261944 1 Tablet(s) PO QD 201801/25/2019 Inactive follow up in 3 weeks potassium chloride ER 20 mEq tablet,extended release RxNorm: 035290 2 Tablet(s) PO BID 01/23/2019 02/14/2019 Inactive Synthroid 50 mcg tablet RxNorm: 130099 TAKE ONE TABLET BY MOUTH DAILY 01/16/2019 10/24/2019 Inactive potassium chloride ER 20 mEq tablet,extended release RxNorm: 072691 2 Tablet(s) PO BID 01/04/2019 01/22/2019 Inactive ProAir HFA 90 mcg/actuation aerosol inhaler RxNorm: 951472 INHALE ONE PUFF BY MOUTH EVERY 4 HOURS FOR WHEEZING OR SHORTNESS OF BREATH 01/04/201902/20 Inactive Request already responded to by other me ans (e.g. phone or fax) ProAir HFA 90 mcg/actuation aerosol inhaler RxNorm: 1636871 INHALE ONE PUFF BY MOUTH EVERY 4 HOURS FOR WHEEZING OR SHORTNESS OF BREATH 01/02/201912/23 Inactive gabapentin 300 mg capsule RxNorm: 794708 TAKE ONE CAPSULE BY MO UTH TWICE A DAY 12/30/2018 04/06/2019 Inactive furosemide 40 mg tablet RxNorm: 341613 1 Tablet(s) PO QAM 12/26/2018 02/23/2019 Inactive Compazine 10 mg tablet RxNorm: 921617 1 Tablet(s) PO QID as nee ded for nausea 12/07/2018 12/16/2018 Inactive metolazone 2.5 mg tablet RxNorm: 411448 TAKE ONE TABLET BY MOUT H EVERY MORNING 12/05/2018 01/03/2019 Inactive metformin ER 500 mg tablet,extended release 24 hr RxNorm: 86 0975 TAKE ONE TABLET BY MOUTH DAILY 12/05/2018 04/10/2019 Inactive Synthroid 50 mcg tablet RxNorm: 029388 1 Tablet(s) PO QD 11/25/2018 0 01/03/2019 Inactive DC any other synthroid strengths. Should be 50mcg only cyclobenzaprine 10 mg tablet RxNorm: 288824 TAKE ONE TA BLET BY MOUTH THREE TIMES A DAY NEEDED 11/09/2018 02/06/2019 Inactive metolazone 2.5 mg tablet RxNorm: 104977 1 Tablet(s) PO QAM repl aces 5mg dose 11/02/2018 12/01/2018 Inactive potassium chloride ER 20 mEq tablet,extended release RxNorm: 243086 2 Tablet(s) PO QD 2018 01/02/2019 Inactive Compazine 10 mg tablet RxNorm: 304685 1 Tablet(s) PO QID as nee ded for nausea 10/18/2018 12/07/2018 Inactive furosemide 40 mg tablet RxNorm: 750492 1 Tablet(s) PO QAM 10/12/2018 12/10/2018 Inactive ondansetron 8 mg disintegrating tablet RxNorm: 654026 1 Tablet(s) PO Q6H as needed 10/11/2018 10/17/2018 Inactive scopolamine 1 mg over 3 days transdermal patch RxNorm: 39574 2 1 Application TD behind ear. Take off after three days 10/11/2018 01/02/2019 Inactive furosemide 40 mg tablet RxNorm: 234575 1 Tablet(s) PO QAM 10/10/2018 12/26/2018 Inactive metolazone 5 mg tablet RxNorm: 414678 1 Tablet(s) PO QAM 10/06/2018 1 01/03/2018 Inactive metolazone 5 mg tablet RxNorm: 795464 1 Tablet(s) PO QAM 10/06/2018 1 12/05/2017 Inactive Xtampza ER 36 mg capsule sprinkle RxNorm: 6572233 1 Capsule(s) P O BID 10/05/2018 01/02/2019 Inactive Xtampza ER 36 mg capsule sprinkle RxNorm: 9319601 1 Capsule(s) P O BID 10/05/2018 02/12/2019 Inactive omeprazole 40 mg capsule,delayed release RxNorm: 598834 TAKE ONE CAPSULE BY MOUTH DAILY 10/03/2018 12/31/2018 Inactive Duragesic 100 mcg/hr transdermal patch RxNorm: 757313 2 Application TD Q48H for pain 09/30/2018 10/29/2018 Inactive Synthroid 50 mcg tablet RxNorm: 011920 1 Tablet(s) PO QD 09/29/2018 0 11/25/2018 Inactive DC any other synthroid strengths. Should be 50mcg only Synthroid 50 mcg tablet RxNorm: 821988 1 Tablet(s) PO QD 09/29/2018 1 11/28/2017 Inactive furosemide 40 mg tablet RxNorm: 876003 2 Tablet(s) PO Q AM for 1 week then every other day for 2 weeks 09/27/2018 10/12/2018 Inactive fluoxetine 40 mg capsule RxNorm: 364449 2 Capsule(s) PO QD 09/27/20 18 10/17/2018 Inactive potassium chloride ER 20 mEq tablet,extended release RxNorm: 907541 2 Tablet(s) PO QD for 1 week then every other day for 2 weeks 09/27/2018 2018 Inactive ProAir HFA 90 mcg/actuation aerosol inhaler RxNorm: 5138408 INHALE ONE PUFF BY MOUTH EVERY 4 HOURS FOR WHEEZING OR SHORTNESS OF BREATH 09/26/201811/23 Inactive Synthroid 75 mcg tablet RxNorm: 592091 1 Tablet(s) PO QD 09/09/2018 1 Inactive Synthroid 75 mcg tablet RxNorm: 085853 1 Tablet(s) PO QD 09/09/2018 1 11/28/2017 Inactive furosemide 40 mg tablet RxNorm: 574547 1 Tablet(s) PO QD 09/06/2018 1 Inactive potassium chloride ER 20 mEq tablet,extended release RxNorm: 346830 1 Tablet(s) PO QD 09/06/2018 09/19/2018 Inactive Duragesic 100 mcg/hr transdermal patch RxNorm: 987738 2 Application TD Q48H for pain 08/30/2018 09/28/2018 Inactive gabapentin 300 mg capsule RxNorm: 990085 TAKE ONE CAPSULE BY MO [facility] TWICE A DAY 08/23/2018 12/20/2018 Inactive Daliresp 500 mcg tablet RxNorm: 0926332 TAKE ONE TABLET BY MOUTH DAILY 08/23/2018 01/19/2019 Inactive Pulmicort 1 mg/2 mL suspension for nebulization RxNorm: 6168 19 USE ONE VIAL VIA NEBULIZER BY MOUTH TWICE A DAY 08/23/2018 07/11/2019 Inactive Synthroid 88 mcg tablet RxNorm: 615518 1 Tablet(s) PO QD 08/19/2018 1 Inactive Medrol (Aníbal) 4 mg tablets in a dose pack RxNorm: 653222 Tablet(s) PO take as directed 08/16/2018 09/05/2018 Inactive Relistor 150 mg tablet RxNorm: 1864019 3 Tablet(s) PO QD 08/16/2018 1 Inactive Zithromax Z-Aníbal 250 mg tablet RxNorm: 993748 Tablet(s) PO take as directed 08/16/2018 09/05/2018 Inactive cyclobenzaprine 10 mg tablet RxNorm: 504803 1 Tablet(s) PO TID as needed 08/16/2018 11/08/2018 Inactive Synthroid 88 mcg tablet RxNorm: 757455 1 Tablet(s) PO Q D NEEDS UPDATED LABS BEFORE FURTHER REFILLS 08/08/2018 08/19/2018 Inactive Premarin 0.45 mg tablet RxNorm: 633978 1 Tablet(s) PO QD 08/03/2018 0 01/31/2019 Inactive fluoxetine 20 mg capsule RxNorm: 034667 [facility] 08/03/2018 09/26/2018 Inactive Xtampza ER 36 mg capsule sprinkle RxNorm: 2444785 1 Capsule(s) P O BID 08/03/2018 09/01/2018 Inactive metformin ER 500 mg tablet,extended release 24 hr RxNorm: 86 0975 1 Tablet(s) PO QD 08/03/2018 10/31/2018 Inactive Symbicort 160 mcg-4.5 mcg/actuation HFA aerosol inhaler RxNo rm: 2975711 2 Puff(s) INH BID 08/03/2018 01/29/2019 Inactive Duragesic 100 mcg/hr transdermal patch RxNorm: 191186 2 Application TD Q48H for pain 07/29/2018 08/27/2018 Inactive ProAir HFA 90 mcg/actuation aerosol inhaler RxNorm: 523499 INHALE TWO PUFFS BY MOUTH EVERY 4 HOURS FOR WHEEZING OR SHORTNESS OF BREATH 07/27/201802/2018 Inactive Relistor 150 mg tablet RxNorm: 1784739 3 Tablet(s) PO QD 07/20/2018 0 08/15/2018 Inactive metformin ER 500 mg tablet,extended release 24 hr RxNorm: 86 0975 TAKE ONE TABLET BY MOUTH DAILY 07/08/2018 08/02/2018 Inactive fluoxetine 40 mg capsule RxNorm: 933352 TAKE ONE CAPSULE BY BENOIT TH EVERY MORNING 07/08/2018 10/05/2018 Inactive Xtampza ER 18 mg capsule sprinkle RxNorm: 1962176 1 Capsule(s) P O BID 07/08/2018 08/02/2018 Inactive Relistor 150 mg tablet RxNorm: 2211915 3 Tablet(s) PO QD 07/08/2018 0 07/12/2018 Inactive Synthroid 88 mcg tablet RxNorm: 930771 1 Tablet(s) PO Q D NEEDS UPDATED LABS BEFORE FURTHER REFILLS 06/23/2018 07/07/2018 Inactive fluoxetine 40 mg capsule RxNorm: 338744 TAKE ONE CAPSULE BY BENOIT TH EVERY MORNING 06/15/2018 09/26/2018 Inactive orphenadrine citrate ER 100 mg tablet,extended release RxNor m: 216999 TAKE ONE TABLET BY MOUTH TWICE A DAY FOR MUSCLE SPASM 06/15/2018 08/15/[address] [place] [facility] Duragesic 100 mcg/hr transdermal patch RxNorm: 235637 2 Application TD Q48H for pain 05/30/2018 06/28/2018 Inactive ProAir HFA 90 mcg/actuation aerosol inhaler RxNorm: 855060 INHALE TWO PUFFS BY MOUTH EVERY 4 HOURS FOR WHEEZING OR SHORTNESS OF BREATH 05/19/201803/2018 Inactive Chantix Continuing Month Box 1 mg tablet RxNorm: 134043 TAKE ONE TABLET BY MOUTH TWICE A DAY 05/19/2018 08/15/2018 Inactive oxycodone 10 mg tablet RxNorm: 9591713 1-2 Tablet(s) PO QID as n eeded for pain 05/19/2018 07/07/2018 Inactive gabapentin 300 mg capsule RxNorm: 310103 TAKE ONE CAPSULE BY [facility] TWICE A DAY 05/18/2018 07/16/2018 Inactive ProAir HFA 90 mcg/actuation aerosol inhaler RxNorm: 643235 INHALE TWO PUFFS BY MOUTH EVERY 4 HOURS FOR WHEEZING OR SHORTNESS OF BREATH 05/04/201804/23 Inactive Augmentin 500 mg-125 mg tablet RxNorm: 597448 1 Tablet(s) PO BID 05/03/2018 Inactive oxycodone 10 mg tablet RxNorm: 9986134 1-2 Tablet(s) PO QID as n eeded for pain 04/21/2018 05/18/2018 Inactive Synthroid 88 mcg tablet RxNorm: 788585 1 Tablet(s) PO QD 04/15/2018 0 08/08/2018 Inactive Symbicort 160 mcg-4.5 mcg/actuation HFA aerosol inhaler RxNo rm: 4414693 2 Puff(s) INH BID 04/15/2018 04/10/2019 Inactive Premarin 0.45 mg tablet RxNorm: 640635 1 Tablet(s) PO QD 04/15/2018 0 08/03/2018 Inactive ProAir HFA 90 mcg/actuation aerosol inhaler RxNorm: 595833 2 Puff(s) INH Q4H prn for wheezing or shortness of breath 04/15/2018 05/03/2018 Inactive metformin ER 500 mg tablet,extended release 24 hr RxNorm: 86 0975 1 Tablet(s) PO QD 04/11/2018 07/07/2018 Inactive omeprazole 40 mg capsule,delayed release RxNorm: 489201 TAKE ONE CAPSULE BY MOUTH DAILY 04/10/2018 06/08/2018 Inactive Synthroid 88 mcg tablet RxNorm: 832808 1 Tablet(s) PO QD 04/04/2018 0 04/14/2018 Inactive Synthroid 88 mcg tablet RxNorm: 187641 1 Tablet(s) PO QD 04/04/2018 0 04/03/2018 Inactive orphenadrine citrate ER 100 mg tablet,extended release RxNor m: 489746 1 Tablet(s) PO BID for muscle spasm 04/04/2018 05/03/2018 Inactive metformin ER 500 mg tablet,extended release 24 hr RxNorm: 86 0975 1 Tablet(s) PO QD NEEDS UPDATED LABS 03/31/2018 04/11/2018 Inactive doxycycline hyclate 100 mg capsule RxNorm: 0540177 1 Capsule(s) PO BID 03/31/2018 04/09/2018 Inactive prednisone 20 mg tablet RxNorm: 085685 3 Tablet(s) PO T ID for 3 days then 1 po BID for 3 days then one daily for 3 days 03/31/2018 07/06/2018 Inactiv e Chantix Continuing Month Box 1 mg tablet RxNorm: 339672 TAKE ONE TABLET BY MOUTH TWICE A DAY 03/25/2018 03/30/2018 Inactive oxycodone 10 mg tablet RxNorm: 4735910 1-2 Tablet(s) PO QID as n eeded for pain 03/21/2018 04/20/2018 Inactive Daliresp 500 mcg tablet RxNorm: 3569145 1 Tablet(s) PO QD 03/15/2018 08/22/2018 Inactive metformin ER 500 mg tablet,extended release 24 hr RxNorm: 86 0975 1 Tablet(s) PO QD NEEDS UPDATED LABS 03/14/2018 03/31/2018 Inactive nystatin 100,000 unit/mL oral suspension RxNorm: 350852 5 [place] liter(s) PO QID 03/02/2018 03/15/2018 Inactive nystatin 100,000 unit/mL oral suspension RxNorm: 160330 5 [place]io liter(s) PO QID 03/02/2018 03/01/2018 Inactive oxycodone 10 mg tablet RxNorm: 1520068 1-2 Tablet(s) PO QID as n eeded for pain 02/16/2018 03/20/2018 Inactive fluoxetine 20 mg capsule RxNorm: 240798 1 Capsule(s) PO QD 02/15/20 18 08/02/2018 Inactive metformin ER 500 mg tablet,extended release 24 hr RxNorm: 86 0975 1 Tablet(s) PO QD Needs updated labs 02/14/2018 03/14/2018 Inactive cefdinir 300 mg capsule RxNorm: 983869 1 Capsule(s) PO BID 01/27/20 18 02/04/2018 Inactive orphenadrine citrate ER 100 mg tablet,extended release RxNor m: 010943 1 Tablet(s) PO BID for muscle spasm 01/26/2018 04/04/2018 Inactive gabapentin 300 mg capsule RxNorm: 811370 1 Capsule(s) PO BID 201704/17/2018 Inactive oxycodone 10 mg tablet RxNorm: 0476222 1-2 Tablet(s) PO QID as n eeded for pain 01/17/2018 02/15/2018 Inactive Duragesic 100 mcg/hr transdermal patch RxNorm: 342971 2 Application TD Q48H for pain 01/17/2018 02/15/2018 Inactive gabapentin 300 mg capsule RxNorm: 441579 TAKE ONE CAPSULE BY MO UTH TWICE A DAY 12/20/2017 01/18/2018 Inactive fluoxetine 40 mg capsule RxNorm: 785796 TAKE ONE CAPSULE BY BENOIT TH EVERY MORNING 12/15/2017 03/14/2018 Inactive OneTouch Ultra Test strips RxNorm: TEST DAILY 11/04/2017 02/01/2018 Inactive gabapentin 300 mg capsule RxNorm: 409519 1 Capsule(s) P O TID replaces BID dosing 10/26/2017 02/22/2018 Inactive oxycodone 10 mg tablet RxNorm: 4621801 1-2 Tablet(s) PO QID as n eeded for pain 10/18/2017 01/16/2018 Inactive Duragesic 100 mcg/hr transdermal patch RxNorm: 444897 2 Application TD Q48H for pain 10/18/2017 11/16/2017 Inactive gabapentin 300 mg capsule RxNorm: 776424 1 Capsule(s) PO BID 201610/25/2017 Inactive Abilify 5 mg tablet RxNorm: 391734 1 Tablet(s) PO QAM 09/23/201702/2017 Inactive gabapentin 300 mg capsule RxNorm: 436109 1 Capsule(s) PO BID 201610/17/2017 Inactive oxycodone 10 mg tablet RxNorm: 3316437 1-2 Tablet(s) PO QID as n eeded for pain 09/15/2017 10/17/2017 Inactive Duragesic 100 mcg/hr transdermal patch RxNorm: 780694 2 Application TD Q48H for pain 09/15/2017 10/14/2017 Inactive Duragesic 100 mcg/hr transdermal patch RxNorm: 417182 2 Application TD Q48H for pain 09/15/2017 10/24/2019 Inactive oxycodone 10 mg tablet RxNorm: 2786391 1-2 Tablet(s) PO QID as n eeded for pain 09/15/2017 08/15/2018 Inactive Daliresp 500 mcg tablet RxNorm: 8098492 1 Tablet(s) PO QD 09/06/2017 03/15/2018 Inactive Ventolin HFA 90 mcg/actuation aerosol inhaler RxNorm: 495024 2 Puff(s) INH Q4H as needed 09/02/2017 05/19/2018 Inactive oxycodone 10 mg tablet RxNorm: 4675225 1-2 Tablet(s) PO QID as n eeded for pain 08/17/2017 09/14/2017 Inactive Duragesic 100 mcg/hr transdermal patch RxNorm: 553953 2 Application TD Q48H for pain 08/17/2017 09/14/2017 Inactive fluoxetine 40 mg capsule RxNorm: 638825 Capsule(s) TAKE ONE CAPSULE BY MOUTH EVERY MORNING 08/17/2017 12/14/2017 Inactive Pulmicort 1 mg/2 mL suspension for nebulization RxNorm: 6168 19 1 Unit Dose INH BID Dx: COPD (J44.9) 08/16/2017 08/22/2018 Inactive gabapentin 300 mg capsule RxNorm: 185757 1 Capsule(s) PO QHS 201610/18/2017 Inactive fluoxetine 20 mg capsule RxNorm: 050091 1 Capsule(s) PO QD 08/12/20 17 02/14/2018 Inactive Abilify 2 mg tablet RxNorm: 375383 1 Tablet(s) PO QD TA KE ONE TABLET BY MOUTH DAILY 08/12/2017 10/25/2017 Inactive metformin ER 500 mg tablet,extended release 24 hr RxNorm: 86 0975 1 Tablet(s) PO QD 08/10/2017 02/14/2018 Inactive Synthroid 112 mcg tablet RxNorm: 668824 1 Tablet(s) PO QD 08/10/2017 04/15/2018 Inactive oxycodone 10 mg tablet RxNorm: 1317613 1-2 Tablet(s) PO QID as n eeded for pain 07/19/2017 08/16/2017 Inactive Duragesic 100 mcg/hr transdermal patch RxNorm: 944247 2 Application TD Q48H for pain 07/19/2017 08/16/2017 Inactive Ventolin HFA 90 mcg/actuation aerosol inhaler RxNorm: 373323 2 Puff(s) INH Q4H as needed 07/12/2017 09/02/2017 Inactive Abilify 2 mg tablet RxNorm: 933268 1 Tablet(s) PO QD TA KE ONE TABLET BY MOUTH DAILY 07/06/2017 08/11/2017 Inactive gabapentin 800 mg tablet RxNorm: 367878 1 Tablet(s) PO TID 06/22/20 17 07/05/2017 Inactive Chantix Starting Month Box 0.5 mg (11)-1 mg (42) table ts in dose pack RxNorm: 475041 TAKE BY MOUTH INSTRUCTED - PER PACKAGE INSTRUCTIONS 06/0707/04/2017 Inactive Ventolin HFA 90 mcg/actuation aerosol inhaler RxNorm: 518889 2 Puff(s) INH Q4H as needed 05/26/2017 07/12/2017 Inactive Duragesic 100 mcg/hr transdermal patch RxNorm: 480648 2 Application TD Q48H for pain 05/19/2017 06/17/2017 Inactive oxycodone 10 mg tablet RxNorm: 8193047 1-2 Tablet(s) PO QID as n eeded for pain 05/19/2017 07/18/2017 Inactive Abilify 2 mg tablet RxNorm: 200737 TAKE ONE TABLET BY MOUTH DAILY 0 05/10/2017 07/05/2017 Inactive Synthroid 112 mcg tablet RxNorm: 562180 1 Tablet(s) PO QD 05/06/2017 08/10/2017 Inactive metformin ER 500 mg tablet,extended release 24 hr RxNorm: 86 0975 1 Tablet(s) PO QD 05/06/2017 08/10/2017 Inactive Topamax 100 mg tablet RxNorm: 270798 1 Tablet(s) PO QHS 05/06/2017 Inactive Premarin 0.45 mg tablet RxNorm: 737631 1 Tablet(s) PO QD 05/06/2017 0 04/15/2018 Inactive orphenadrine citrate ER 100 mg tablet,extended release RxNor m: 861636 1 Tablet(s) PO TID for muscle spasm--replaces methocarbamol 04/29/2017 Inactive oxycodone 10 mg tablet RxNorm: 7566738 1-2 Tablet(s) PO QID as n eeded for pain 04/21/2017 05/18/2017 Inactive Duragesic 100 mcg/hr transdermal patch RxNorm: 981661 2 Application TD Q48H for pain 04/21/2017 05/18/2017 Inactive fluoxetine 40 mg capsule RxNorm: 371046 Capsule(s) TAKE ONE CAPSULE BY MOUTH EVERY MORNING 04/20/2017 08/17/2017 Inactive Ventolin HFA 90 mcg/actuation aerosol inhaler RxNorm: 966409 2 Puff(s) INH Q4H as needed 04/05/2017 05/26/2017 Inactive Symbicort 160 mcg-4.5 mcg/actuation HFA aerosol inhaler RxNo rm: 5817430 2 Puff(s) INH BID 03/30/2017 04/15/2018 Inactive Spiriva with HandiHaler 18 mcg and inhalation capsules RxNor m: 468316 1 Capsule(s) INH QD USING HANDIHALER 03/30/2017 02/12/2019 Inactive Duragesic 100 mcg/hr transdermal patch RxNorm: 052936 2 Application TD Q48H for pain 03/18/2017 04/16/2017 Inactive oxycodone 10 mg tablet RxNorm: 8566398 1-2 Tablet(s) PO QID as n eeded for pain 03/18/2017 04/20/2017 Inactive metformin ER 500 mg tablet,extended release 24 hr RxNorm: 86 0975 Tablet(s) TAKE ONE TABLET BY MOUTH DAILY 03/01/2017 05/06/2017 Inactive Premarin 0.45 mg tablet RxNorm: 630609 Tablet(s) TAKE ONE TABLE T BY MOUTH DAILY 03/01/2017 05/06/2017 Inactive Synthroid 112 mcg tablet RxNorm: 500176 Tablet(s) TAKE ONE TABLET BY MOUTH DAILY 03/01/2017 05/06/2017 Inactive Daliresp 500 mcg tablet RxNorm: 9218407 1 Tablet(s) PO QD 03/01/2017 09/06/2017 Inactive 16.2 mg-0.1037 mg-0.0194 mg tablet RxNorm: 2755894 Tablet(s) PO PRN for gas and cramping 02/23/2017 04/28/2017 Inactive TAKE TWO TABLET S BY MOUTH THREE TIMES A DAY NEEDED FOR GAS AND CRAMPING gabapentin 800 mg tablet RxNorm: 560784 1 Tablet(s) PO TID repl aces 600mg 02/23/2017 04/28/2017 Inactive Duragesic 100 mcg/hr transdermal patch RxNorm: 515221 2 Application TD Q48H for pain 02/17/2017 03/17/2017 Inactive fluoxetine 20 mg capsule RxNorm: 403932 1 Capsule(s) PO QD 02/18/20 17 08/12/2017 Inactive oxycodone 20 mg tablet RxNorm: 4518384 1 Tablet(s) PO QID as nee ded for pain 02/17/2017 03/17/2017 Inactive Ventolin HFA 90 mcg/actuation aerosol inhaler RxNorm: 099488 INHALE TWO PUFFS BY MOUTH EVERY 4 HOURS NEEDED 02/15/2017 04/05/2017 Inactive Silvadene 1 % topical cream RxNorm: 401915 1 Application TOP BI D to burn area 02/01/2017 09/22/2017 Inactive Topamax 100 mg tablet RxNorm: 632168 TAKE ONE TABLET BY MOUTH EVERY NIGHT AT BEDTIME 01/29/2017 05/06/2017 Inactive Chantix Starting Month Box 0.5 mg (11)-1 mg (42) table ts in dose pack RxNorm: 430695 Tablet(s) PO as directed 01/29/2017 06/01/2017 Inactive Abilify 2 mg tablet RxNorm: 450231 TAKE ONE TABLET BY MOUTH DAILY 0 01/26/2017 04/25/2017 Inactive Chantix Starting Month Box 0.5 mg (11)-1 mg (42) table ts in dose pack RxNorm: 043456 Tablet(s) PO as directed 01/20/2017 01/28/2017 Inactive gabapentin 600 mg tablet RxNorm: 553035 1 Tablet(s) PO TID 01/21/20 17 02/22/2017 Inactive Chantix Continuing Month Box 1 mg tablet RxNorm: 076312 1 Table t(s) PO BID 12/31/2016 06/01/2017 Inactive Spiriva with HandiHaler 18 mcg and inhalation capsules RxNor m: 078310 INHALE THE ENTIRE CONTENTS OF 1 CAPSULE ONCE A DAY USING HANDIHALER 12/31/201607/2017 Inactive Synthroid 112 mcg tablet RxNorm: 862385 TAKE ONE TABLET BY MOUT H DAILY 12/30/2016 03/01/2017 Inactive metformin ER 500 mg tablet,extended release 24 hr RxNorm: 86 0975 TAKE ONE TABLET BY MOUTH DAILY 12/30/2016 03/01/2017 Inactive Premarin 0.45 mg tablet RxNorm: 006545 TAKE ONE TABLET BY MOUTH DAILY 12/30/2016 03/01/2017 Inactive omeprazole 40 mg capsule,delayed release RxNorm: 155184 TAKE ONE CAPSULE BY MOUTH DAILY 12/30/2016 01/25/2018 Inactive Ventolin HFA 90 mcg/actuation aerosol inhaler RxNorm: 408109 INHALE TWO PUFFS BY MOUTH EVERY 4 HOURS NEEDED 12/28/2016 02/13/2017 Inactive fluoxetine 40 mg capsule RxNorm: 779081 TAKE ONE CAPSULE BY BENOIT TH EVERY MORNING 12/15/2016 04/20/2017 Inactive Chantix Continuing Month Box 1 mg tablet RxNorm: 929675 TAKE ONE TABLET BY MOUTH TWICE A DAY 12/04/2016 12/31/2016 Inactive doxycycline hyclate 100 mg capsule RxNorm: 7113621 1 Capsule(s) PO BID 12/01/2016 12/07/2016 Inactive Levaquin 750 mg tablet RxNorm: 030868 1 Tablet(s) PO QD 12/01/2016 Inactive Abilify 2 mg tablet RxNorm: 349603 TAKE ONE TABLET BY MOUTH DAILY 0 11/25/2016 11/30/2016 Inactive Ventolin HFA 90 mcg/actuation aerosol inhaler RxNorm: 854516 INHALE TWO PUFFS BY MOUTH EVERY 4 HOURS NEEDED 11/02/2016 12/19/2016 Inactive Chantix Continuing Month Box 1 mg tablet RxNorm: 451306 Tablet(s) PO as directed 10/30/2016 12/03/2016 Inactive Symbicort 160 mcg-4.5 mcg/actuation HFA aerosol inhaler RxNo rm: 7659293 INHALE TWO PUFFS TWO TIMES A DAY 10/30/2016 03/30/2017 Inactive Abilify 2 mg tablet RxNorm: 301898 1 Tablet(s) PO QD 10/27/201611/24 Inactive amoxicillin 500 mg capsule RxNorm: 080374 1 Capsule(s) PO TID 10/1410/23/2016 Inactive amoxicillin 500 mg capsule RxNorm: 291710 1 Capsule(s) PO TID 10/1410/13/2016 Inactive Synthroid 112 mcg tablet RxNorm: 705869 TAKE ONE TABLET BY MOUT H DAILY 09/28/2016 12/29/2016 Inactive Topamax 100 mg tablet RxNorm: 897780 TAKE ONE TABLET BY MOUTH EVERY NIGHT AT BEDTIME 09/28/2016 01/28/2017 Inactive Premarin 0.45 mg tablet RxNorm: 148717 TAKE ONE TABLET BY MOUTH DAILY 09/28/2016 12/29/2016 Inactive metformin ER 500 mg tablet,extended release 24 hr RxNorm: 86 0975 TAKE ONE TABLET BY MOUTH DAILY 09/28/2016 12/29/2016 Inactive Ventolin HFA 90 mcg/actuation aerosol inhaler RxNorm: 536565 INHALE TWO PUFFS BY MOUTH EVERY 4 HOURS NEEDED 09/22/2016 10/23/2016 Inactive Pulmicort 1 mg/2 mL suspension for nebulization RxNorm: 6168 19 1 Unit Dose INH BID Dx: COPD (J44.9) 09/10/2016 08/16/2017 Inactive Pulmicort 1 mg/2 mL suspension for nebulization RxNorm: 6168 19 1 Unit Dose INH BID 09/10/2016 09/09/2016 Inactive Brovana 15 mcg/2 mL solution for nebulization RxNorm: 982697 1 Unit Dose INH BID Dx: COPD (J44.9) 09/10/2016 01/25/2018 Inactive Brovana 15 mcg/2 mL solution for nebulization RxNorm: 438128 1 Unit Dose INH BID 09/10/2016 09/09/2016 Inactive ipratropium-albuterol 0.5 mg-3 mg(2.5 mg base)/3 mL ne bulization soln RxNorm: 7758138 1 Unit Dose INH Q4H as needed Dx: COPD (J44.9) 09/10/2016 0 02/12/2019 Inactive orphenadrine citrate ER 100 mg tablet,extended release RxNor m: 071229 1 Tablet(s) PO BID for muscle spasm--replaces methocarbamol 09/09/2016 Inactive Chantix Continuing Month Box 1 mg tablet RxNorm: 177852 Tablet(s) PO as directed 09/09/2016 10/30/2016 Inactive orphenadrine citrate ER 100 mg tablet,extended release RxNor m: 677903 1 Tablet(s) PO BID for muscle spasm 09/09/2016 09/08/2016 Inactive Spiriva with HandiHaler 18 mcg and inhalation capsules RxNor m: 377884 INHALE THE ENTIRE CONTENTS OF 1 CAPSULE ONCE A DAY USING HANDIHALER 09/01/201605/2017 Inactive Daliresp 500 mcg tablet RxNorm: 2928860 1 Tablet(s) PO QD 08/27/2016 03/01/2017 Inactive prednisone 20 mg tablet RxNorm: 313395 3 Tablet(s) PO T ID for 3 days then 1 po BID for 3 days then one daily for 3 days 08/26/2016 04/28/2017 Inactiv e Wellbutrin XL 300 mg 24 hr tablet, extended release RxNorm: 590733 TAKE ONE TABLET BY MOUTH EVERY MORNING 07/29/2016 10/26/2016 Inactive gabapentin 600 mg tablet RxNorm: 368408 1 Tablet(s) PO BID 06/26/20 16 12/22/2016 Inactive fluoxetine 40 mg capsule RxNorm: 751459 TAKE ONE CAPSULE BY BENOIT TH EVERY MORNING 06/24/2016 11/20/2016 Inactive Duragesic 100 mcg/hr transdermal patch RxNorm: 593799 2 Application TD Q48H for pain 06/05/2016 07/04/2016 Inactive oxycodone 10 mg tablet RxNorm: 1983493 1-2 Tablet(s) PO QID as n eeded for pain 06/05/2016 03/17/2017 Inactive Belladonna-Phenobarbital 48 mg tablet,extended release RxNor m: 2 Tablet(s) PO TID 06/05/2016 01/19/2017 Inactive Premarin 0.45 mg tablet RxNorm: 854120 TAKE ONE TABLET BY MOUTH DAILY 05/27/2016 09/23/2016 Inactive Topamax 100 mg tablet RxNorm: 088067 TAKE ONE TABLET BY MOUTH EVERY NIGHT AT BEDTIME 05/27/2016 09/27/2016 Inactive Synthroid 112 mcg tablet RxNorm: 436583 TAKE ONE TABLET BY MOUT H DAILY 05/27/2016 09/23/2016 Inactive metformin ER 500 mg tablet,extended release 24 hr RxNorm: 86 0975 TAKE ONE TABLET BY MOUTH DAILY 05/27/2016 09/23/2016 Inactive Symbicort 160 mcg-4.5 mcg/actuation HFA aerosol inhaler RxNo rm: 2714768 INHALE TWO PUFFS TWO TIMES A DAY 05/27/2016 10/23/2016 Inactive Ventolin HFA 90 mcg/actuation aerosol inhaler RxNorm: 166727 INHALE TWO PUFFS BY MOUTH EVERY 4 HOURS NEEDED 05/21/2016 07/07/2016 Inactive omeprazole 40 mg capsule,delayed release RxNorm: 042234 1 Capsu le(s) PO QD 05/06/2016 08/03/2016 Inactive metformin ER 500 mg tablet,extended release 24 hr RxNorm: 86 0975 TAKE ONE TABLET BY MOUTH DAILY 04/23/2016 05/22/2016 Inactive methocarbamol 750 mg tablet RxNorm: 016528 2 Tablet(s) PO TID as needed for muscle spasm 04/23/2016 09/08/2016 Inactive Synthroid 112 mcg tablet RxNorm: 869789 TAKE ONE TABLET BY MOUT H DAILY 04/23/2016 05/22/2016 Inactive Spiriva with HandiHaler 18 mcg and inhalation capsules RxNor m: 537289 INHALE THE ENTIRE CONTENTS OF 1 CAPSULE ONCE A DAY USING HANDIHALER 04/09/201608/2016 Inactive Diflucan 100 mg tablet RxNorm: 277060 1 Tablet(s) PO QD 04/08/2016 Inactive doxycycline hyclate 100 mg capsule RxNorm: 2649956 1 Capsule(s) PO BID 04/08/2016 04/17/2016 Inactive doxycycline hyclate 100 mg capsule RxNorm: 6266333 1 Capsule(s) PO BID 04/08/2016 04/07/2016 Inactive Diflucan 100 mg tablet RxNorm: 685497 1 Tablet(s) PO QD 04/08/2016 Inactive ondansetron HCl 4 mg tablet RxNorm: 917397 1 Tablet(s) PO Q4H as needed for nausea and vomiting 04/08/2016 09/22/2017 Inactive gabapentin 600 mg tablet RxNorm: 356340 TAKE ONE TABLET BY MOUT H TWICE A DAY 03/24/2016 06/25/2016 Inactive Synthroid 112 mcg tablet RxNorm: 957276 TAKE ONE TABLET BY MOUT H DAILY 02/25/2016 04/22/2016 Inactive Levaquin 500 mg tablet RxNorm: 725087 1 Tablet(s) PO QD 01/23/2016 Inactive prednisone 20 mg tablet RxNorm: 376981 1 Tablet(s) PO T ID for 3 days then 1 po BID for 3 days then one daily for 3 days 01/23/2016 08/25/2016 Inactiv e Enabled Employment Ultra Test strips RxNorm: TEST BLOOD SUGAR ONCE DAILY 250.00 01/09/2016 11/04/2017 Inactive methocarbamol 750 mg tablet RxNorm: 996191 2 Tablet(s) PO TID as needed for muscle spasm 01/09/2016 04/23/2016 Inactive lactulose 10 gram/15 mL oral solution RxNorm: 498327 [address](s) PO QD 01/09/2016 09/22/2017 Inactive TAKE 1 TABLESPOON BY MOUTH ONCE DAILY metformin ER 500 mg tablet,extended release 24 hr RxNorm: 86 0975 1 Tablet(s) PO QD 12/26/2015 04/22/2016 Inactive fluoxetine 20 mg capsule RxNorm: 232762 1 Capsule(s) PO QD 12/23/19 16 06/19/2016 Inactive Premarin 0.45 mg tablet RxNorm: 286349 TAKE ONE TABLET BY MOUTH DAILY 12/23/2015 05/20/2016 Inactive fluoxetine 40 mg capsule RxNorm: 362390 1 Capsule(s) PO QD 12/23/19 16 06/19/2016 Inactive TAKE ONE CAPSULE BY MOUTH EV JANKI MORNING azithromycin 500 mg tablet RxNorm: 955042 1 Tablet(s) PO QD 016 12/19/2015 Inactive Zofran 4 mg tablet RxNorm: 969769 1 Tablet(s) PO Q4H prn nausea /vomiting 12/13/2015 03/30/2018 Inactive azithromycin 500 mg tablet RxNorm: 969285 1 Tablet(s) PO QD 016 12/12/2015 Inactive Duragesic 100 mcg/hr transdermal patch RxNorm: 682087 2 Application TD Q48H for pain 12/09/2015 01/07/2016 Inactive oxycodone 10 mg tablet RxNorm: 6982257 1-2 Tablet(s) PO QID as n eeded for pain 12/09/2015 06/04/2016 Inactive Bactroban 2 % topical cream RxNorm: 359766 Application TOP BID 11/2208/25/2016 Inactive doxycycline hyclate 100 mg capsule RxNorm: 1789627 1 Capsule(s) PO BID 12/03/2015 12/12/2015 Inactive Topamax 100 mg tablet RxNorm: 670218 TAKE ONE TABLET BY MOUTH EVERY NIGHT AT BEDTIME 11/25/2015 05/22/2016 Inactive Symbicort 160 mcg-4.5 mcg/actuation HFA aerosol inhaler RxNo rm: 3408057 INHALE TWO PUFFS TWO TIMES A DAY 11/25/2015 05/22/2016 Inactive Synthroid 112 mcg tablet RxNorm: 267313 Tablet(s) TAKE ONE TABLET BY MOUTH DAILY 11/25/2015 02/22/2016 Inactive omeprazole 40 mg capsule,delayed release RxNorm: 947850 1 Capsu le(s) PO QD 11/12/2015 05/05/2016 Inactive oxycodone 10 mg tablet RxNorm: 6782812 1-2 Tablet(s) PO QID as n eeded for pain 11/05/2015 12/08/2015 Inactive Duragesic 100 mcg/hr transdermal patch RxNorm: 256634 2 Application TD Q48H for pain 11/05/2015 12/04/2015 Inactive omeprazole 40 mg capsule,delayed release RxNorm: 438226 1 Capsu le(s) PO QD 10/07/2015 11/11/2015 Inactive Januvia 100 mg tablet RxNorm: 465098 TAKE ONE TABLET BY MOUTH DAILY 09/11/2015 12/25/2015 Inactive Zithromax 500 mg tablet RxNorm: 870906 1 Tablet(s) PO QD 09/10/2015 1 Inactive prednisone 20 mg tablet RxNorm: 395138 1 Tablet(s) PO T ID for 3 days then 1 po BID for 3 days then one daily for 3 days 09/10/2015 08/25/2016 Inactiv e Wellbutrin XL 300 mg 24 hr tablet, extended release RxNorm: 616045 1 Tablet(s) PO QAM 09/10/2015 12/02/2015 Inactive Topamax 100 mg tablet RxNorm: 508074 TAKE ONE TABLET BY MOUTH EVERY NIGHT AT BEDTIME 09/02/2015 11/24/2015 Inactive Synthroid 112 mcg tablet RxNorm: 279750 TAKE ONE TABLET BY MOUT H DAILY 09/02/2015 11/25/2015 Inactive methocarbamol 750 mg tablet RxNorm: 288957 2 Tablet(s) PO TID as needed for muscle spasm 08/15/2015 01/09/2016 Inactive Wellbutrin XL 150 mg 24 hr tablet, extended release RxNorm: 616906 TAKE ONE TABLET BY MOUTH EVERY MORNING 08/13/2015 08/13/2015 Inactive gabapentin 600 mg tablet RxNorm: 961425 1 Tablet(s) PO BID 08/13/20 15 02/08/2016 Inactive Wellbutrin XL 300 mg 24 hr tablet, extended release RxNorm: 984299 1 Tablet(s) PO QAM 08/06/2015 09/09/2015 Inactive Wellbutrin XL 150 mg 24 hr tablet, extended release RxNorm: 800376 1 Tablet(s) PO QAM 07/18/2015 08/05/2015 Inactive prednisone 20 mg tablet RxNorm: 853390 1 Tablet(s) PO BID 07/18/2015 07/22/2015 Inactive doxycycline hyclate 100 mg tablet,delayed release RxNorm: 43 4018 1 Tablet(s) PO BID 07/18/2015 07/27/2015 Inactive pravastatin 40 mg tablet RxNorm: 670160 1 Tablet(s) PO QD NEEDS FASTING LAB 07/15/2015 07/14/2015 Inactive pravastatin 40 mg tablet RxNorm: 641439 1 Tablet(s) PO QD NEEDS FASTING LAB 07/15/2015 01/25/2018 Inactive Ventolin HFA 90 mcg/actuation aerosol inhaler RxNorm: 614889 2 Puff(s) INH Q4H 07/08/2015 07/07/2015 Inactive prn Premarin 0.45 mg tablet RxNorm: 533799 1 Tablet(s) PO QD 07/01/2015 0 12/22/2015 Inactive pravastatin 40 mg tablet RxNorm: 346536 1 Tablet(s) PO QD NEEDS FASTING LAB 06/14/2015 07/15/2015 Inactive Ventolin HFA 90 mcg/actuation aerosol inhaler RxNorm: 1623142 2 Puff(s) INH Q4H 06/06/2015 07/08/2015 Inactive prn albuterol sulfate 2.5 mg/3 mL (0.083 %) solution for n ebulization RxNorm: 258838 1 Unit Dose INH QID 05/30/2015 No Stop Date Active Duragesic 100 mcg/hr transdermal patch RxNorm: 998750 2 Application TD Q48H for pain 04/29/2015 05/28/2015 Inactive gabapentin 600 mg tablet RxNorm: 701109 1 Tablet(s) PO BID 04/11/20 15 08/13/2015 Inactive Onglyza 5 mg tablet RxNorm: 745030 1 Tablet(s) PO QD for blood suga r 04/10/2015 04/15/2015 Inactive [Brand Copay Card: RxBIN:[id number] PCN:CRISTIANA RxGRP:[id number] ID#:[id number]] methocarbamol 750 mg tablet RxNorm: 249410 2 Tablet(s) PO TID as needed for muscle spasm 03/28/2015 08/15/2015 Inactive pravastatin 40 mg tablet RxNorm: 499090 1 Tablet(s) PO QD 03/19/2015 03/18/2015 Inactive pravastatin 40 mg tablet RxNorm: 207018 1 Tablet(s) PO QD 03/19/2015 06/14/2015 Inactive lactulose 10 gram/15 mL oral solution RxNorm: 762252 [address]s) PO QD 03/07/2015 01/09/2016 Inactive TAKE 1 TABLESPOON BY MOUTH ONCE DAILY oxycodone 20 mg tablet RxNorm: 2689089 1 Tablet(s) PO QID as nee ded for pain 03/05/2015 07/08/2015 Inactive Topamax 100 mg tablet RxNorm: 311728 1 Tablet(s) PO QHS TAKE ONE TABLET BY MOUTH AT BEDTIME 02/25/2015 02/12/2019 Inactive metformin ER 500 mg tablet,extended release 24 hr RxNorm: 86 0975 1 Tablet(s) PO QD 02/11/2015 03/04/2015 Inactive take one tablet by mouth every day Daliresp 500 mcg tablet RxNorm: 4638330 1 Tablet(s) PO QD 02/11/2015 08/09/2015 Inactive Endocet 10 mg-325 mg tablet RxNorm: 9542987 1 Tablet(s) PO Q4H as needed for pain 01/23/2015 01/23/2015 Inactive gabapentin 600 mg tablet RxNorm: 514244 1 Tablet(s) PO BID 01/23/20 15 04/11/2015 Inactive methocarbamol 750 mg tablet RxNorm: 867578 2 Tablet(s) PO TID as needed for muscle spasm 01/15/2015 02/13/2015 Inactive fluoxetine 40 mg capsule RxNorm: 150003 1 Capsule(s) PO QD 01/14/20 15 12/23/2015 Inactive TAKE ONE CAPSULE BY MOUTH EV JANKI MORNING fluoxetine 20 mg capsule RxNorm: 502702 1 Capsule(s) PO QD 01/14/20 15 12/23/2015 Inactive Premarin 0.45 mg tablet RxNorm: 713191 1 Tablet(s) PO QD 01/02/2015 0 07/01/2015 Inactive Endocet 10 mg-325 mg tablet RxNorm: 9611471 1-2 Tablet(s) PO Q4H 02/12/2019 Inactive PRN PAIN Duragesic 100 mcg/hr transdermal patch RxNorm: 476374 2 Application TD Q48H for pain 12/25/2014 01/23/2015 Inactive Topamax 100 mg tablet RxNorm: 181066 1 Tablet(s) PO QHS TAKE ONE TABLET BY MOUTH AT BEDTIME 12/25/2014 02/24/2015 Inactive Tudorza Pressair 400 mcg/actuation breath activated RxNorm: 5500051 1 BID INHALE ONE PUFF INTO LUNGS TWO TIMES A DAY 12/17/2014 05/15/2015 Inactive Endocet 10 mg-325 mg tablet RxNorm: 8847946 1-2 Tablet(s) PO Q4H 12/19/2014 Inactive PRN PAIN Duragesic 100 mcg/hr transdermal patch RxNorm: 341309 2 Application TD Q48H for pain 11/20/2014 12/24/2014 Inactive OneTouch Ultra Test strips RxNorm: TEST BLOOD SUGAR ONCE DAILY 250.00 11/16/2014 01/08/2016 Inactive omeprazole 40 mg capsule,delayed release RxNorm: 768852 1 Capsu le(s) PO QD 11/13/2014 11/12/2015 Inactive metformin ER 500 mg tablet,extended release 24 hr RxNorm: 86 0975 1 Tablet(s) PO QD 11/12/2014 02/11/2015 Inactive take one tablet by mouth every day Symbicort 160 mcg-4.5 mcg/actuation HFA aerosol inhaler RxNo rm: 5359596 2 Puff(s) INH BID 11/12/2014 03/11/2015 Inactive INHALE 2 PUFFS O RALLY TWO TIMES A DAY gabapentin 800 mg tablet RxNorm: 200384 1 Tablet(s) PO QD TAKE ONE TABLET BY MOUTH ONCE A DAY 10/22/2014 01/01/2015 Inactive Endocet 10 mg-325 mg tablet RxNorm: 7930428 1-2 Tablet(s) PO Q4H 11/15/2014 Inactive PRN PAIN Duragesic 100 mcg/hr transdermal patch RxNorm: 401266 2 Application TD Q48H for pain 10/17/2014 11/19/2014 Inactive gabapentin 800 mg tablet RxNorm: 257296 1 Tablet(s) PO QD TAKE ONE TABLET BY MOUTH ONCE A DAY 10/04/2014 10/21/2014 Inactive Premarin 0.9 mg tablet RxNorm: 279425 1 Tablet(s) PO QD TAKE ONE TABLET BY MOUTH ONCE A DAY 10/04/2014 01/01/2015 Inactive Spiriva with HandiHaler 18 mcg & inhalation capsules RxNorm: 306592 1 Capsule(s) INH QD 10/03/2014 04/30/2015 Inactive Levaquin 500 mg tablet RxNorm: 578400 1 Tablet(s) PO QD 10/03/2014 Inactive prednisone 20 mg tablet RxNorm: 919968 1 Tablet(s) PO QD 10/03/201412/09/2013 Inactive Duragesic 100 mcg/hr transdermal patch RxNorm: 884548 2 Application TD Q48H for pain 09/18/2014 10/16/2014 Inactive Endocet 10 mg-325 mg tablet RxNorm: 3569529 1-2 Tablet(s) PO Q4H 10/16/2014 Inactive PRN PAIN Synthroid 112 mcg tablet RxNorm: 283078 1 Tablet(s) QD 09/10/2014 Inactive Synthroid 112 mcg tablet RxNorm: 767361 TAKE ONE TABLET BY MOUTH ONE TIME A DAY. NEEDS LABS 09/10/2014 02/06/2015 Inactive omeprazole 40 mg capsule,delayed release RxNorm: 188291 1 Capsu le(s) PO QD 09/03/2014 11/13/2014 Inactive omeprazole 40 mg capsule,delayed release RxNorm: 336683 1 Capsu le(s) PO QD 09/03/2014 09/02/2014 Inactive Spiriva with HandiHaler 18 mcg & inhalation capsules RxNorm: 796631 1 Capsule(s) INH QD 08/27/2014 10/02/2014 Inactive gabapentin 600 mg tablet RxNorm: 189161 1 Tablet(s) PO BID 08/27/20 14 10/22/2014 Inactive Endocet 10 mg-325 mg tablet RxNorm: 3861932 1-2 Tablet(s) PO Q4H 09/17/2014 Inactive PRN PAIN fentanyl 100 mcg/hr transdermal patch RxNorm: 652649 1 Unit Dos e TD QD 08/21/2014 09/19/2014 Inactive Daliresp 500 mcg tablet RxNorm: 4982263 1 Tablet(s) PO QD 08/13/2014 02/11/2015 Inactive Synthroid 112 mcg tablet RxNorm: 882411 TAKE ONE TABLET BY MOUTH ONE TIME A DAY. NEEDS LABS 08/10/2014 09/10/2014 Inactive Endocet 10 mg-325 mg tablet RxNorm: 9299489 1-2 Tablet(s) PO Q4H 08/17/2014 Inactive PRN PAIN Duragesic 100 mcg/hr transdermal patch RxNorm: 394935 2 Application TD Q48H for pain 07/19/2014 09/17/2014 Inactive fluoxetine 40 mg capsule RxNorm: 065339 1 Capsule(s) PO QD 07/17/20 14 01/14/2015 Inactive TAKE ONE CAPSULE BY MOUTH EV JANKI MORNING fluoxetine 20 mg capsule RxNorm: 520069 1 Capsule(s) PO QD 07/17/20 14 01/14/2015 Inactive Spiriva with HandiHaler 18 mcg & inhalation capsules RxNorm: 904406 1 Capsule(s) INH QD 07/17/2014 08/26/2014 Inactive INHALE CONTENTS OF 1 CAPSULE(S) WITH HANDIHALER ONCE DAILY Zofran 4 mg tablet RxNorm: 509126 1 Tablet(s) PO Q4H prn nausea 07/25/2014 Inactive Synthroid 112 mcg tablet RxNorm: 146408 1 Tablet(s) PO QD 07/09/2014 07/09/2014 Inactive methocarbamol 750 mg tablet RxNorm: 318512 2 Tablet(s) PO TID as needed for muscle spasm 07/09/2014 09/06/2014 Inactive Synthroid 112 mcg tablet RxNorm: 157414 1 Tablet(s) PO QD - nee d labs 07/09/2014 08/07/2014 Inactive Medrol (Aníbal) 4 mg tablets in a dose pack RxNorm: 823855 6 Tablet(s) PO QD --then as directed 07/03/2014 07/08/2014 Inactive Tudorza Pressair 400 mcg/actuation breath activated RxNorm: 5031284 1 Puff(s) INH BID 07/03/2014 12/17/2014 Inactive cefdinir 300 mg capsule RxNorm: 282799 1 Capsule(s) PO BID 07/03/20 14 07/12/2014 Inactive Topamax 100 mg tablet RxNorm: 349371 Tablet(s) TAKE ONE TABLET BY MOUTH AT BEDTIME 07/02/2014 02/25/2015 Inactive Duragesic 100 mcg/hr transdermal patch RxNorm: 164597 2 Application TD Q48H for pain 06/25/2014 07/18/2014 Inactive Endocet 10 mg-325 mg tablet RxNorm: 6609076 1-2 Tablet(s) PO Q4H 07/18/2014 Inactive PRN PAIN metformin ER 500 mg tablet,extended release 24 hr RxNorm: 86 0975 1 Tablet(s) PO QD Needs labs 06/18/2014 07/01/2014 Inactive take one tablet by mouth every day Duragesic 100 mcg/hr transdermal patch RxNorm: 753311 2 Application TD Q48H for pain 05/22/2014 06/24/2014 Inactive Synthroid 112 mcg tablet RxNorm: 630496 1 Tablet(s) PO QD 05/22/2014 07/09/2014 Inactive Endocet 10 mg-325 mg tablet RxNorm: 8961601 1-2 Tablet(s) PO Q4H 06/20/2014 Inactive PRN PAIN Endocet 10 mg-325 mg tablet RxNorm: 3877264 1-2 Tablet(s) PO Q4H 05/21/2014 Inactive PRN PAIN Duragesic 100 mcg/hr transdermal patch RxNorm: 623555 2 Application TD Q48H for pain 04/25/2014 05/21/2014 Inactive Daliresp 500 mcg tablet RxNorm: 4953575 1 Tablet(s) PO QD 04/24/2014 08/13/2014 Inactive Symbicort 160 mcg-4.5 mcg/actuation HFA aerosol inhaler RxNo rm: 1332985 2 Puff(s) INH BID 04/24/2014 08/21/2014 Inactive INHALE 2 PUFFS O RALLY TWO TIMES A DAY metformin ER 500 mg tablet,extended release 24 hr RxNorm: 86 0975 1 Tablet(s) PO QD 04/24/2014 11/12/2014 Inactive TAKE ONE TABLET BY MOUTH EVERY DAY [AttnRPh:Saving Apply/Adjudicate RxGRP:LDMGRP RxBIN:[id number] RxPCN:2012 PCode:01 ID#:[id number]] Symbicort 160 mcg-4.5 mcg/actuation HFA aerosol inhaler RxNo rm: 8418032 2 Puff(s) INH BID 04/24/2014 11/12/2014 Inactive INHALE 2 PUFFS O RALLY TWO TIMES A DAY Premarin 0.9 mg tablet RxNorm: 967870 1 Tablet(s) PO QD 04/24/2014 Inactive TAKE ONE TABLET BY MOUTH EVERY DAY metformin ER 500 mg tablet,extended release 24 hr RxNorm: 86 0975 1 Tablet(s) PO QD Needs [facility] 04/24/2014 06/18/2014 Inactive TAKE ONE TABLET BY MOUTH EVERY DAY [AttnRPh:Saving Apply/Adjudicate RxGRP:LDMGRP RxBIN:[id number] RxPCN:2012 PCode:01 ID#:[id number]] gabapentin 800 mg tablet RxNorm: 866182 1 Tablet(s) PO QD 04/24/2014 10/04/2014 Inactive TAKE ONE TABLET BY MOUTH EVERY DAY Topamax 100 mg tablet RxNorm: 793837 1 Tablet(s) PO QHS 04/17/2014 Inactive Topamax 100 mg tablet RxNorm: 936547 TAKE ONE TABLET BY MOUTH A T BEDTIME 04/17/2014 07/01/2014 Inactive Tudorza Pressair 400 mcg/actuation breath activated RxNorm: 5288423 1 Puff(s) INH BID 04/11/2014 07/02/2014 Inactive Duragesic 100 mcg/hr transdermal patch RxNorm: 716159 2 Application TD Q48H for pain 03/27/2014 04/24/2014 Inactive Endocet 10 mg-325 mg tablet RxNorm: 9804297 1-2 Tablet(s) PO Q4H 04/24/2014 Inactive PRN PAIN Robaxin 750 mg tablet RxNorm: 156418 2 Tablet(s) PO TID as need ed for spasm 02/23/2014 03/28/2015 Inactive Duragesic 100 mcg/hr transdermal patch RxNorm: 287243 2 Application TD Q48H for pain 02/23/2014 No Stop Date Active Endocet 10 mg-325 mg tablet RxNorm: 7797802 1-2 Tablet(s) PO Q4H 03/23/2014 Inactive PRN PAIN Synthroid 112 mcg tablet RxNorm: 492933 1 Tablet(s) PO QD TAKE ONE TABLET BY MOUTH EVERY DAY 02/15/2014 05/22/2014 Inactive Zithromax 500 mg tablet RxNorm: 141665 1 Tablet(s) PO QD 01/30/2014 0 02/05/2014 Inactive Diflucan 100 mg tablet RxNorm: 561208 1 Tablet(s) PO QD 01/30/2014 Inactive prednisone 20 mg tablet RxNorm: 428737 1 Tablet(s) PO BID 01/30/2014 02/05/2014 Inactive fluoxetine 40 mg capsule RxNorm: 085833 1 Capsule(s) PO QD 01/23/20 14 07/16/2014 Inactive TAKE ONE CAPSULE BY MOUTH EV JANKI MORNING fluoxetine 40 mg capsule RxNorm: 400635 1 Capsule(s) PO QD 01/23/20 14 07/17/2014 Inactive TAKE ONE CAPSULE BY MOUTH EV JANKI MORNING cefdinir 300 mg capsule RxNorm: 633342 1 Capsule(s) PO BID 01/16/20 14 01/29/2014 Inactive Zithromax 500 mg tablet RxNorm: 620910 1 Tablet(s) PO QD 01/16/2014 0 01/22/2014 Inactive prednisone 20 mg tablet RxNorm: 618449 1 Tablet(s) PO BID 01/16/2014 01/22/2014 Inactive Spiriva with HandiHaler 18 mcg and inhalation capsules RxNor m: 923798 1 Capsule(s) INH QD 12/18/2013 07/17/2014 Inactive INHALE CONTENT S OF 1 CAPSULE(S) WITH HANDIHALER ONCE DAILY fluoxetine 20 mg capsule RxNorm: 192558 1 Capsule(s) PO QD 12/18/19 14 06/15/2014 Inactive Spiriva with HandiHaler 18 mcg & inhalation capsules RxNorm: 039703 1 Capsule(s) INH QD 12/18/2013 06/15/2014 Inactive INHALE CONTENTS OF 1 CAPSULE(S) WITH HANDIHALER ONCE DAILY fluoxetine 20 mg capsule RxNorm: 334733 1 Capsule(s) PO QD 12/18/19 14 07/17/2014 Inactive cefdinir 300 mg capsule RxNorm: 732717 2 Capsule(s) PO QD 12/12/2013 12/21/2013 Inactive Duragesic 100 mcg/hr transdermal patch RxNorm: 382306 2 Application TD Q48H for pain 12/08/2013 12/07/2013 Inactive Topamax 100 mg tablet RxNorm: 947369 1 Tablet(s) PO QHS 12/04/2013 Inactive Endocet 10 mg-325 mg tablet RxNorm: 6360152 1-2 Tablet(s) PO Q4H 12/26/2013 Inactive PRN PAIN Robaxin 750 mg tablet RxNorm: 821252 2 Tablet(s) PO TID as need ed for spasm 11/07/2013 01/05/2014 Inactive gabapentin 800 mg tablet RxNorm: 777732 1 Tablet(s) PO QD 10/16/2013 04/24/2014 Inactive TAKE ONE TABLET BY MOUTH EVERY DAY Symbicort 160 mcg-4.5 mcg/actuation HFA aerosol inhaler RxNo rm: 3762076 2 Puff(s) INH BID 10/16/2013 04/24/2014 Inactive INHALE 2 PUFFS O RALLY TWO TIMES A DAY Premarin 0.9 mg tablet RxNorm: 296293 1 Tablet(s) PO QD 10/16/2013 Inactive TAKE ONE TABLET BY MOUTH EVERY DAY metformin ER 500 mg tablet,extended release 24 hr RxNorm: 86 0975 1 Tablet(s) PO QD 10/16/2013 04/24/2014 Inactive TAKE ONE TABLET BY MOUTH EVERY DAY Daliresp 500 mcg tablet RxNorm: 7314142 1 Tablet(s) PO QD 10/16/2013 04/24/2014 Inactive Robaxin 750 mg tablet RxNorm: 703752 2 Tablet(s) PO TID as need ed for spasm 10/10/2013 11/06/2013 Inactive Duragesic 100 mcg/hr transdermal patch RxNorm: 500797 2 Application TD Q48H for pain 10/09/2013 No Stop Date Active Soma 350 mg tablet RxNorm: 965479 1 Tablet(s) PO TID 09/27/201310/09 Inactive TAKE ONE TABLET BY MOUTH THREE TIMES A D AY lactulose 10 gram/15 mL oral solution RxNorm: 895560 [address](s) PO QD 09/13/2013 03/07/2015 Inactive TAKE 1 TABLESPOON BY MOUTH ONCE DAILY Duragesic 100 mcg/hr transdermal patch RxNorm: 717649 2 Application TD Q48H for pain 09/06/2013 No Stop Date Active Endocet 10 mg-325 mg tablet RxNorm: 8355535 1-2 Tablet(s) PO Q4H 09/27/2013 Inactive PRN PAIN lancets 28 gauge RxNorm: Miscellaneous As needed for blo od glucose sticks 08/24/2013 No Stop Date Active 16.2 mg-0.1037 mg-0.0194 mg tablet RxNorm: 8320751 Tablet(s) PO PRN for gas and cramping 08/24/2013 01/19/2017 Inactive TAKE TWO TABLET S BY MOUTH THREE TIMES A DAY NEEDED FOR GAS AND CRAMPING Topamax 100 mg tablet RxNorm: 085852 1 Tablet(s) PO QHS 07/31/2013 Inactive Diflucan 100 mg tablet RxNorm: 033916 1 Tablet(s) PO QD 07/27/2013 Inactive cefdinir 300 mg capsule RxNorm: 701034 1 Capsule(s) PO BID 07/26/20 13 08/08/2013 Inactive Daliresp 500 mcg tablet RxNorm: 4535970 1 Tablet(s) PO QD 07/25/2013 10/15/2013 Inactive fluoxetine 40 mg capsule RxNorm: 176487 1 Capsule(s) PO QD 07/25/20 13 01/22/2014 Inactive TAKE ONE CAPSULE BY MOUTH EV JANKI MORNING Senokot-S 8.6 mg-50 mg tablet RxNorm: 0070540 1 Tablet(s) PO BID 10/25/2013 Inactive doxycycline hyclate 100 mg capsule RxNorm: 3667380 1 Capsule(s) PO BID 06/28/2013 07/07/2013 Inactive prednisone 20 mg tablet RxNorm: 364205 1 Tablet(s) PO BID 06/28/2013 07/04/2013 Inactive Zofran 4 mg tablet RxNorm: 244443 1 Tablet(s) PO Q4H prn nausea 03/201307/05/2013 Inactive Spiriva with HandiHaler 18 mcg & inhalation capsules RxNorm: 901125 1 Capsule(s) INH QD 06/26/2013 12/18/2013 Inactive INHALE CONTENTS OF 1 CAPSULE(S) WITH HANDIHALER ONCE DAILY Synthroid 112 mcg tablet RxNorm: 969598 1 Tablet(s) PO QD TAKE ONE TABLET BY MOUTH EVERY DAY 06/19/2013 02/15/2014 Inactive fluoxetine 20 mg capsule RxNorm: 504635 1 Capsule(s) PO QD 06/19/20 13 12/18/2013 Inactive Ventolin HFA 90 mcg/actuation Aerosol Inhaler RxNorm: 0939847 2 Puff(s) INH Q4H 06/05/2013 No Stop Date Active prn Soma 350 mg tablet RxNorm: 740975 1 Tablet(s) PO TID 06/05/201307/04 Inactive TAKE ONE TABLET BY MOUTH THREE TIMES A D AY prednisone 20 mg tablet RxNorm: 385393 1 Tablet(s) PO QD 05/31/2013 0 06/06/2013 Inactive Topamax 100 mg tablet RxNorm: 960096 1 Tablet(s) PO QHS 05/22/2013 Inactive Levaquin 500 mg tablet RxNorm: 882758 1 Tablet(s) PO QD 05/03/2013 Inactive Diflucan 100 mg tablet RxNorm: 678312 1 Tablet(s) PO QD 05/03/2013 Inactive Daliresp 500 mcg tablet RxNorm: 0940350 1 Tablet(s) PO QD 05/01/2013 07/24/2013 Inactive Daliresp 500 mcg tablet RxNorm: 4766092 1 Tablet(s) PO QD 05/01/2013 04/30/2013 Inactive gabapentin 800 mg tablet RxNorm: 904080 1 Tablet(s) PO QD 04/10/2013 10/06/2013 Inactive TAKE ONE TABLET BY MOUTH EVERY DAY metformin ER 500 mg tablet,extended release 24 hr RxNorm: 86 0977 1 Tablet(s) PO QD 04/10/2013 10/06/2013 Inactive TAKE ONE TABLET BY MOUTH EVERY DAY Premarin 0.9 mg tablet RxNorm: 643790 1 Tablet(s) PO QD 04/10/2013 Inactive TAKE ONE TABLET BY MOUTH EVERY DAY Symbicort 160 mcg-4.5 mcg/actuation HFA aerosol inhaler RxNo rm: 3530174 2 Puff(s) INH BID 04/10/2013 10/06/2013 Inactive INHALE 2 PUFFS O RALLY TWO TIMES A DAY Synthroid 112 mcg tablet RxNorm: 814458 1 Tablet(s) PO QD TAKE ONE TABLET BY MOUTH EVERY DAY 04/10/2013 06/18/2013 Inactive Ventolin HFA 90 mcg/actuation Aerosol Inhaler RxNorm: 0964197 2 Puff(s) INH Q4H 04/10/2013 No Stop Date Active prn fentanyl 100 mcg/hr transdermal patch RxNorm: 331063 1 Unit Dos e TD QD 04/03/2013 05/02/2013 Inactive Endocet 10 mg-325 mg tablet RxNorm: 6043074 1-2 Tablet(s) PO Q4H 05/02/2013 Inactive PRN PAIN Topamax 100 mg tablet RxNorm: 411846 1 Tablet(s) PO QHS 03/13/2013 Inactive Reglan 10 mg tablet RxNorm: 811016 1 Tablet(s) PO QID b efore meals and at bedtime 03/13/2013 04/09/2015 Inactive fluoxetine 20 mg capsule RxNorm: 435271 1 Capsule(s) PO QD 02/28/20 13 05/27/2013 Inactive Ventolin HFA 90 mcg/actuation Aerosol Inhaler RxNorm: 8262334 2 Puff(s) INH Q4H 02/13/2013 No Stop Date Active prn fluoxetine 40 mg capsule RxNorm: 561639 1 Capsule(s) PO QD 01/31/20 13 07/24/2013 Inactive TAKE ONE CAPSULE BY MOUTH EV JANKI MORNING Soma 350 mg tablet RxNorm: 831672 1 Tablet(s) PO TID 01/20/201302/18 Inactive TAKE ONE TABLET BY MOUTH THREE TIMES A D AY Endocet 10 mg-325 mg tablet RxNorm: 0091259 1-2 Tablet(s) PO Q4H 02/06/2013 Inactive PRN PAIN MS Contin 200 mg tablet,extended release RxNorm: 769343 1 Table t(s) PO BID 01/18/2013 02/06/2013 Inactive Ventolin HFA 90 mcg/actuation Aerosol Inhaler RxNorm: 7523710 2 Puff(s) INH Q4H 01/04/2013 No Stop Date Active prn Spiriva with HandiHaler 18 mcg & inhalation capsules RxNorm: 185839 1 Capsule(s) INH QD 12/29/2012 06/25/2013 Inactive INHALE CONTENTS OF 1 CAPSULE(S) WITH HANDIHALER ONCE DAILY Spiriva with HandiHaler 18 mcg & inhalation capsules RxNorm: 594256 1 Capsule(s) INH QD 12/26/2012 12/28/2012 Inactive INHALE CONTENTS OF 1 CAPSULE(S) WITH HANDIHALER ONCE DAILY Synthroid 112 mcg tablet RxNorm: 936554 Tablet(s) PO TA KE ONE TABLET BY MOUTH EVERY DAY 12/26/2012 04/09/2013 Inactive Endocet 10 mg-325 mg tablet RxNorm: 4280316 1-2 Tablet(s) PO Q4H 01/17/2013 Inactive PRN PAIN MS Contin 200 mg tablet,extended release RxNorm: 744176 1 Table t(s) PO BID 12/21/2012 01/17/2013 Inactive fluoxetine 20 mg capsule RxNorm: 707579 1 Capsule(s) PO QD 12/06/19 13 02/26/2013 Inactive Synthroid 112 mcg tablet RxNorm: 234905 1 Tablet(s) PO QD 12/06/2012 02/12/2019 Inactive TAKE ONE TABLET BY MOUTH EVERY DAY Ventolin HFA 90 mcg/actuation Aerosol Inhaler RxNorm: 2050014 2 Puff(s) INH Q4H 12/06/2012 No Stop Date Active prn Reglan 10 mg tablet RxNorm: 602367 1 Tablet(s) PO QID b efore meals and at bedtime 11/24/2012 03/12/2013 Inactive Topamax 100 mg tablet RxNorm: 948378 1 Tablet(s) PO QHS 11/16/2012 Inactive Ventolin HFA 90 mcg/actuation Aerosol Inhaler RxNorm: 9860712 2 Puff(s) INH Q4H 11/09/2012 No Stop Date Active prn gabapentin 800 mg tablet RxNorm: 445865 1 Tablet(s) PO QD 10/27/2012 04/09/2013 Inactive TAKE ONE TABLET BY MOUTH EVERY DAY metformin ER 500 mg tablet,extended release 24 hr RxNorm: 86 0977 1 Tablet(s) PO QD 10/27/2012 04/09/2013 Inactive TAKE ONE TABLET BY MOUTH EVERY DAY Symbicort 160 mcg-4.5 mcg/actuation HFA Aerosol Inhaler RxNo rm: 3515339 2 Puff(s) INH BID 10/27/2012 04/09/2013 Inactive INHALE 2 PUFFS O RALLY TWO TIMES A DAY Premarin 0.9 mg tablet RxNorm: 511549 1 Tablet(s) PO QD 10/27/2012 Inactive TAKE ONE TABLET BY MOUTH EVERY DAY Endocet 10 mg-325 mg tablet RxNorm: 3450511 1-2 Tablet(s) PO Q4H 11/24/2012 Inactive PRN PAIN MS Contin 200 mg tablet,extended release RxNorm: 309605 1 Table t(s) PO BID 10/26/2012 11/24/2012 Inactive Soma 350 mg tablet RxNorm: 412621 1 Tablet(s) PO TID 10/04/201211/02 Inactive TAKE ONE TABLET BY MOUTH THREE TIMES A D AY Ventolin HFA 90 mcg/actuation Aerosol Inhaler RxNorm: 0603972 2 Puff(s) INH Q4H 10/03/2012 No Stop Date Active prn Daliresp 500 mcg tablet RxNorm: 0336470 1 Tablet(s) PO QD 09/28/2012 09/27/2012 Inactive Daliresp 500 mcg tablet RxNorm: 3755921 1 Tablet(s) PO QD 09/28/2012 04/25/2013 Inactive fluoxetine 20 mg capsule RxNorm: 611390 1 Capsule(s) PO QD 09/05/2012/06/2012 Inactive Topamax 50 mg tablet RxNorm: 686958 Tablet(s) PO for 1w k then 1 po q HS for 1wk then 2 po q HS 08/29/2012 09/27/2012 Inactive TAKE 1/2 TABLET BY MOUTH AT BEDTIME FOR 1 WEEK, THEN 1 TABLET AT BEDTIME FOR 1 WEEK, THEN 2 TABLETS AT BEDTIME Topamax 100 mg tablet RxNorm: 078421 1 Tablet(s) PO QHS 08/29/2012 Inactive Ventolin HFA 90 mcg/actuation Aerosol Inhaler RxNorm: 5884633 2 Puff(s) INH Q4H 08/19/2012 No Stop Date Active prn Ventolin HFA 90 mcg/actuation Aerosol Inhaler RxNorm: 8810352 2 Puff(s) INH Q4H 08/15/2012 No Stop Date Active prn Synthroid 112 mcg tablet RxNorm: 380438 1 Tablet(s) PO QD 08/10/2012 11/07/2012 Inactive TAKE ONE TABLET BY MOUTH EVERY DAY Synthroid 112 mcg tablet RxNorm: 585522 1 Tablet(s) PO QD 08/01/2012 08/09/2012 Inactive TAKE ONE TABLET BY MOUTH EVERY DAY Reglan 10 mg tablet RxNorm: 851058 1 Tablet(s) PO QID b efore meals and at bedtime 08/01/2012 11/23/2012 Inactive fluoxetine 40 mg capsule RxNorm: 767555 1 Capsule(s) PO QD 08/01/2001/27/2013 Inactive TAKE ONE CAPSULE BY MOUTH EV JANKI MORNING Ventolin HFA 90 mcg/actuation Aerosol Inhaler RxNorm: 3602002 2 Puff(s) INH Q4H 08/01/2012 No Stop Date Active prn Soma 350 mg tablet RxNorm: 048306 1 Tablet(s) PO TID 07/20/201208/18 Inactive TAKE ONE TABLET BY MOUTH THREE TIMES A D AY Spiriva with HandiHaler 18 mcg & inhalation capsules RxNorm: 792500 1 Capsule(s) INH 07/01/2012 12/25/2012 Inactive INHALE CONTENTS OF 1 CAPSULE(S) WITH HANDIHALER ONCE DAILY Zithromax 250 mg Tab RxNorm: 384831 2 Tablet(s) PO QD 06/28/201206/22 Inactive MS Contin 200 mg tablet,extended release RxNorm: 554488 1 Table t(s) PO BID 06/28/2012 07/27/2012 Inactive Endocet 10 mg-325 mg tablet RxNorm: 1989038 1-2 Tablet(s) PO Q4H 07/27/2012 Inactive PRN PAIN Topamax 100 mg tablet RxNorm: 591496 1 Tablet(s) PO QHS 06/28/2012 Inactive 16.2 mg-0.1037 mg-0.0194 mg tablet RxNorm: 9791713 Tablet(s) PO PRN for gas and cramping 06/08/2012 08/23/2013 Inactive TAKE TWO TABLET S BY MOUTH THREE TIMES A DAY NEEDED FOR GAS AND CRAMPING Ventolin HFA 90 mcg/actuation Aerosol Inhaler RxNorm: 3660603 2 Puff(s) INH Q4H 05/23/2012 No Stop Date Active prn Ventolin HFA 90 mcg/actuation Aerosol Inhaler RxNorm: 6488310 2 Puff(s) INH Q4H 05/11/2012 No Stop Date Active prn Synthroid 112 mcg tablet RxNorm: 828095 1 Tablet(s) PO QD 05/09/2012 07/31/2012 Inactive TAKE ONE TABLET BY MOUTH EVERY DAY gabapentin 800 mg tablet RxNorm: 495418 1 Tablet(s) PO QD 05/09/2012 10/26/2012 Inactive TAKE ONE TABLET BY MOUTH EVERY DAY fluoxetine 40 mg capsule RxNorm: 338512 1 Capsule(s) PO QD 05/09/2007/31/2012 Inactive TAKE ONE CAPSULE BY MOUTH EV JANKI MORNING metformin ER 500 mg tablet,extended release 24 hr RxNorm: 86 0977 1 Tablet(s) PO QD 05/09/2012 10/26/2012 Inactive TAKE ONE TABLET BY MOUTH EVERY DAY Premarin 0.9 mg tablet RxNorm: 755786 1 Tablet(s) PO QD 05/09/2012 Inactive TAKE ONE TABLET BY MOUTH EVERY DAY Symbicort 160 mcg-4.5 mcg/actuation HFA Aerosol Inhaler RxNo rm: 9432072 2 Puff(s) INH BID 05/09/2012 10/26/2012 Inactive INHALE 2 PUFFS O RALLY TWO TIMES A DAY Endocet 10 mg-325 mg Tab RxNorm: 8396369 1-2 Tablet(s) PO Q4H 04/2705/26/2012 Inactive PRN PAIN MS Contin 200 mg Tab RxNorm: 244873 1 Tablet(s) PO BID 04/26/201202/2012 Inactive Ventolin HFA 90 mcg/actuation Aerosol Inhaler RxNorm: 6413034 2 Puff(s) INH Q4H 04/25/2012 05/10/2012 Inactive prn Soma 350 mg tablet RxNorm: 697130 2 Tablet(s) PO TID 04/19/201207/19 Inactive TAKE ONE TABLET BY MOUTH THREE TIMES A D AY Ventolin HFA 90 mcg/actuation Aerosol Inhaler RxNorm: 2377001 2 Puff(s) INH Q4H 04/12/2012 04/24/2012 Inactive prn Reglan 10 mg tablet RxNorm: 554800 1 Tablet(s) PO QID b efore meals and at bedtime 04/11/2012 07/31/2012 Inactive MS Contin 200 mg Tab RxNorm: 350291 1 Tablet(s) PO BID 03/30/201202/2012 Inactive Endocet 10 mg-325 mg Tab RxNorm: 8369461 1-2 Tablet(s) PO Q4H 03/3004/26/2012 Inactive PRN PAIN MS Contin 200 mg Tab RxNorm: 090373 1 Tablet(s) PO BID 03/02/201206/2012 Inactive Endocet 10 mg-325 mg Tab RxNorm: 7647475 1-2 Tablet(s) PO Q4H 03/0203/29/2012 Inactive PRN PAIN Daliresp 500 mcg tablet RxNorm: 7949323 1 Tablet(s) PO QD 03/01/2012 09/28/2012 Inactive MS Contin 200 mg Tab RxNorm: 075714 1 Tablet(s) PO BID 02/02/201208/2012 Inactive Endocet 10 mg-325 mg Tab RxNorm: 5934673 1-2 Tablet(s) PO Q4H 02/0103/01/2012 Inactive PRN PAIN fluoxetine 40 mg capsule RxNorm: 095504 1 Capsule(s) PO QD 02/02/2008/01/2012 Inactive TAKE ONE CAPSULE BY MOUTH EV JANKI MORNING Synthroid 112 mcg Tab RxNorm: 074665 1 Tablet(s) PO QD 01/18/2012 Inactive TAKE ONE TABLET BY MOUTH EVERY DAY lactulose 10 gram/15 mL oral solution RxNorm: 076278 [address]s) PO QD 01/18/2012 No Stop Date Active TAKE 1 TABLESPOON BY MOUTH ONCE DAILY Ventolin HFA 90 mcg/actuation Aerosol Inhaler RxNorm: 9862978 2 Puff(s) INH Q4H 01/18/2012 04/11/2012 Inactive prn MS Contin 200 mg Tab RxNorm: 401115 1 Tablet(s) PO BID 01/05/201210/2012 Inactive Endocet 10 mg-325 mg Tab RxNorm: 5701824 1-2 Tablet(s) PO Q4H 01/0502/01/2012 Inactive PRN PAIN ProAir HFA 90 mcg/Actuation Aerosol Inhaler RxNorm: 2986184 2 Pu ff(s) INH Q4H 12/21/2011 No Stop Date Active prn for wheezing or shortness of breath Spiriva with HandiHaler 18 mcg & inhalation Caps RxNorm: 580 261 1 Capsule(s) INH 12/21/2011 06/30/2012 Inactive INHALE CONTENTS OF 1 CAPSULE(S) WITH HANDIHALER ONCE DAILY Reglan 10 mg Tab RxNorm: 452855 1 Tablet(s) PO QID before meals and at bedtime 12/21/2011 04/10/2012 Inactive Synthroid 112 mcg Tab RxNorm: 517644 1 Tablet(s) PO QD 12/21/2011 Inactive TAKE ONE TABLET BY MOUTH EVERY DAY Endocet 10 mg-325 mg Tab RxNorm: 3946923 1-2 Tablet(s) PO Q4H 11/2512/24/2011 Inactive PRN PAIN MS Contin 200 mg Tab RxNorm: 078479 1 Tablet(s) PO BID 11/25/201112/2011 Inactive lactulose 10 gram/15 mL Oral Soln RxNorm: 510301 Milliliter(s) PO 1 No Stop Date Active TAKE 1 TABLESPOON BY MOUTH O NCE DAILY lactulose 10 gram/15 mL Oral Soln RxNorm: 990588 Milliliter(s) PO 1 12/12/2010 11/20/2011 Inactive TAKE 1 TABLESPOON BY MOUTH O NCE DAILY Premarin 0.9 mg Tab RxNorm: 079108 1 Tablet(s) PO QD 10/12/201105/08 Inactive TAKE ONE TABLET BY MOUTH EVERY DAY fluoxetine 20 mg capsule RxNorm: 226670 1 Capsule(s) PO QD 10/12/2009/05/2012 Inactive TAKE ONE CAPSULE BY MOUTH EV JANKI DAY Synthroid 112 mcg Tab RxNorm: 547253 1 Tablet(s) PO QD 10/12/2011 Inactive TAKE ONE TABLET BY MOUTH EVERY DAY metformin ER 500 mg 24 hr Tab RxNorm: 333319 1 Tablet(s) PO QD 09/2311/10/2011 Inactive TAKE ONE TABLET BY MOUTH GLYNN RY DAY Synthroid 112 mcg Tab RxNorm: 810984 1 Tablet(s) PO QD 10/12/2011 Inactive TAKE ONE TABLET BY MOUTH EVERY DAY metformin ER 500 mg 24 hr Tab RxNorm: 003432 1 Tablet(s) PO QD 09/2310/11/2011 Inactive TAKE ONE TABLET BY MOUTH GLYNN RY DAY Prevacid 30 mg Cap RxNorm: 538456 Capsule(s) PO 10/12/2011 01/25/2012 Inactive TAKE ONE CAPSULE BY MOUTH EVERY DAY Symbicort 160 mcg-4.5 mcg/actuation HFA Aerosol Inhaler RxNo rm: 8988176 2 Puff(s) INH BID 10/12/2011 05/08/2012 Inactive INHALE 2 PUFFS O RALLY TWO TIMES A DAY gabapentin 800 mg Tab RxNorm: 059021 1 Tablet(s) PO QD 10/12/2011 Inactive TAKE ONE TABLET BY MOUTH EVERY DAY MS Contin 200 mg Tab RxNorm: 425333 1 Tablet(s) PO BID 09/23/201111/2010 Inactive Endocet 10 mg-325 mg Tab RxNorm: 7906972 1-2 Tablet(s) PO Q4H 09/2310/22/2011 Inactive PRN PAIN Endocet 10 mg-325 mg Tab RxNorm: 2840432 1-2 Tablet(s) PO Q4H 08/2109/19/2011 Inactive PRN PAIN MS Contin 200 mg Tab RxNorm: 797694 1 Tablet(s) PO BID 08/21/2011 Inactive Diflucan 100 mg Tab RxNorm: 870671 1 Tablet(s) PO QD 08/10/201108/16 Inactive cefdinir 300 mg Cap RxNorm: 435724 2 Capsule(s) PO QD 08/10/201107/24 Inactive Reglan 10 mg Tab RxNorm: 164624 1 Tablet(s) PO AC & HS 07/15/2011 Inactive Endocet 10 mg-325 mg Tab RxNorm: 5843184 1-2 Tablet(s) PO Q4H 07/1508/13/2011 Inactive PRN PAIN One Touch Ultra Test strips RxNorm: Miscellaneous BID 06/11/2011 1 01/16/2014 Inactive TEST TWO TIMES A DAY lactulose 10 gram/15 mL Oral Soln RxNorm: 419450 Milliliter(s) PO 0 06/10/2011 10/11/2011 Inactive TAKE 1 TABLESPOON BY MOUTH O NCE DAILY Chantix Continuing Month Aníbal 1 mg Tab RxNorm: 304970 Tablet(s) PO 0 06/10/2011 11/02/2011 Inactive TAKE DIRECTED - PER PACK[employer] GE INSTRUCTIONS fluoxetine 40 mg Cap RxNorm: 406812 Capsule(s) PO 06/10/2011 02/02/20 Inactive TAKE ONE CAPSULE BY MOUTH EVERY MORNING Chantix Continuing Month Aníbal 1 mg Tab RxNorm: 276110 Ta blet(s) PO TAKE DIRECTED - PER PACKAGE INSTRUCTIONS 05/13/2011 06/09/2011 Inactive Soma 350 mg Tab RxNorm: 852829 Tablet(s) PO TAKE ON E TABLET BY MOUTH THREE TIMES A DAY 05/13/2011 04/18/2012 Inactive Chantix Continuing Month Aníbal 1 mg Tab RxNorm: 710324 Ta blet(s) PO as directed per package instructions. 04/22/2011 05/12/2011 Inactive Symbicort 160 mcg-4.5 mcg/Actuation HFA Aerosol Inhaler RxNo rm: 0206568 HFA Aerosol Inhaler INH INHALE 2 PUFFS ORALLY TWO TIMES A DAY 04/13/2011 Inactive Synthroid 112 mcg Tab RxNorm: 446350 Tablet(s) PO TAKE ONE TABLET BY MOUTH EVERY DAY 04/13/2011 10/12/2011 Inactive Premarin 0.9 mg Tab RxNorm: 225503 Tablet(s) PO TAKE ON E TABLET BY MOUTH EVERY DAY 04/13/2011 10/12/2011 Inactive gabapentin 800 mg Tab RxNorm: 888688 Tablet(s) PO TAKE ONE TABLET BY MOUTH EVERY DAY 04/13/2011 10/12/2011 Inactive Prevacid 30 mg Cap RxNorm: 827225 1 Capsule(s) PO QD 04/13/201110/11 Inactive Spiriva with HandiHaler 18 mcg & inhalation Caps RxNorm: 580 261 Capsule(s) INH INHALE CONTENTS OF 1 CAPSULE(S) WITH HANDIHALER ONCE DAILY 04/13/2011 12/21/2011 Inactive metformin ER 500 mg 24 hr Tab RxNorm: 345016 Tablet(s) PO TAKE ONE TABLET BY MOUTH EVERY DAY 04/13/2011 10/12/2011 Inactive Soma 350 mg Tab RxNorm: 490749 1 Tablet(s) PO QID 03/30/2011 02/13/20 19 Inactive fluoxetine 20 mg Cap RxNorm: 018208 Capsule(s) PO TAKE ONE CAPSULE BY MOUTH EVERY DAY 03/25/2011 10/12/2011 Inactive cefdinir 300 mg Cap RxNorm: 102052 2 Capsule(s) PO QD 03/19/201105/2011 Inactive 16.2 mg-0.1037 mg-0.0194 mg Tab RxNorm: 9082600 2 Tablet(s) PO TID PRN for gas and cramping 03/16/2011 07/13/2011 Inactive Soma 350 mg Tab RxNorm: 510454 2 Tablet(s) PO TID 03/16/2011 03/29/20 11 Inactive Chantix Starting Month Aníbal 0.5 mg (11)-1 mg (3x14) Tab s in a Dose Pack RxNorm: 524237 Tablet(s) PO as directed 03/02/2011 No Stop Date Active diazepam 10 mg Tab RxNorm: 655016 1 Tablet(s) PO BID 02/10/201101/19 Inactive Zofran 4 mg tablet RxNorm: 543821 1 Tablet(s) PO Q4H prn nausea 02/16/2011 Inactive Diflucan 100 mg Tab RxNorm: 834991 1 Tablet(s) PO QD 01/18/201101/24 Inactive Premarin 0.625 mg/g Vaginal Cream RxNorm: 837632 VAG In sert 1gm vaginally at bedtime 3 times weekly 01/18/2011 02/12/2019 Inactive loratadine 10 mg Tab RxNorm: 014171 1 Tablet(s) PO QD 12/17/201003/2012 Inactive Spiriva with HandiHaler 18 mcg & inhalation Caps RxNorm: 580 261 1 Capsule(s) INH QD 12/17/2010 04/12/2011 Inactive Diflucan 100 mg Tab RxNorm: 437008 1 Tablet(s) PO QD 12/17/201012/23 Inactive diazepam 10 mg Tab RxNorm: 016975 1 Tablet(s) PO BID and PRN 201002/12/2019 Inactive One Touch Ultra Test Strips RxNorm: InVt BID Zainab t blood sugar at least twice daily. 11/11/2010 06/11/2011 Inactive fluoxetine 40 mg Cap RxNorm: 120590 1 Capsule(s) PO QAM 11/11/2010 Inactive diazepam 10 mg Tab RxNorm: 158034 1 Tablet(s) PO BID and PRN 200911/12/2010 Inactive Bactrim DS 800 mg-160 mg Tab RxNorm: 980547 1 Tablet(s) PO BID 09/2210/15/2010 Inactive fluoxetine 20 mg Cap RxNorm: 243320 1 Capsule(s) PO QD 10/02/201008/2011 Inactive Bactrim DS 800 mg-160 mg Tab RxNorm: 240993 1 Tablet(s) PO BID 01/201010/03/2010 Inactive Zofran 4 mg Tab RxNorm: 290271 1 Tablet(s) PO Q4H prn nausea 200910/16/2010 Inactive 16.2 mg-0.1037 mg-0.0194 mg Tab RxNorm: 4404635 2 Tablet(s) PO TID PRN for gas and cramping 09/17/2010 10/21/2010 Inactive Gabapentin 800 mg Tab RxNorm: 278653 1 Tablet(s) PO QD 09/16/2010 Inactive ProAir HFA 90 mcg/Actuation Aerosol Inhaler RxNorm: 8819370 2 Puff(s) INH Q4H prn shortness of breath 09/15/2010 12/13/2010 Inactive gabapentin 800 mg Tab RxNorm: 056772 1 Tablet(s) PO QD 09/15/2010 Inactive Prevacid 30 mg Cap RxNorm: 716076 1 Capsule(s) PO QD 09/15/201004/12 Inactive loratadine 10 mg Tab RxNorm: 697194 1 Tablet(s) PO QD 09/15/201011/23 Inactive Premarin 0.9 mg Tab RxNorm: 548713 1 Tablet(s) PO QD 09/15/201004/12 Inactive Synthroid 112 mcg Tab RxNorm: 548234 1 Tablet(s) PO QD 09/15/2010 Inactive metformin ER 500 mg 24 hr Tab RxNorm: 375684 1 Tablet(s) PO QD 08/2304/12/2011 Inactive Symbicort 160 mcg-4.5 mcg/Actuation Inhalation HFA Aer osol Inhaler RxNorm: 8144564 2 Puff(s) INH BID 09/15/2010 04/12/2011 Inactive diazepam 10 mg Tab RxNorm: 182092 1 Tablet(s) PO BID and PRN 200910/13/2010 Inactive Phentermine 37.5 mg Cap RxNorm: 005314 1 Capsule(s) PO QD 09/02/2010 11/02/2011 Inactive ProAir HFA 90 mcg/Actuation Aerosol Inhaler RxNorm: 1481884 2 Puff(s) INH Q4H prn shortness of breath 08/07/2010 No Stop Date Active Premarin 0.9 mg Tab RxNorm: 821831 1 Tablet(s) PO QD 08/07/201009/14 Inactive Loratadine 10 mg Tab RxNorm: 641326 1 Tablet(s) PO QD 08/07/201008/23 Inactive Lactulose 10 gram/15 mL Oral Soln RxNorm: 957730 1 Unit Dose PO QD 08/07/2010 02/12/2019 Inactive Zofran 4 mg Tab RxNorm: 499760 1 Tablet(s) PO Q4H prn nausea 2009 No Stop Date Active Gabapentin 800 mg Tab RxNorm: 269855 1 Tablet(s) PO QD 08/07/2010 Inactive Synthroid 112 mcg Tab RxNorm: 797553 1 Tablet(s) PO QD 08/07/2010 Inactive Metformin ER 500 mg 24 hr Tab RxNorm: 611511 1 Tablet(s) PO QD 07/2309/14/2010 Inactive Vitamin D 1,000 unit Tab RxNorm: 573259 1 Tablet(s) PO TID 08/07/2002/12/2019 Inactive Symbicort 160 mcg-4.5 mcg/Actuation Inhalation HFA Aer osol Inhaler RxNorm: 6780541 2 Puff(s) INH BID 08/07/2010 09/14/2010 Inactive Prevacid 30 mg Cap RxNorm: 885539 1 Capsule(s) PO QD 08/07/201009/14 Inactive Metformin ER 500 mg 24 hr Tab RxNorm: 487298 1 Tablet(s) PO QD 06/2308/06/2010 Inactive Vitamin D 1,000 unit Tab RxNorm: 930454 1 Tablet(s) PO TID 07/14/2008/06/2010 Inactive Synthroid 112 mcg Tab RxNorm: 773246 1 Tablet(s) PO QD 07/14/2010 Inactive Lactulose 10 gram/15 mL Oral Soln RxNorm: 367834 1 Unit Dose PO QD 07/14/2010 08/06/2010 Inactive Levaquin 500 mg Tab RxNorm: 143521 1 Tablet(s) PO QD 07/14/201007/27 Inactive Premarin 0.9 mg Tab RxNorm: 809433 1 Tablet(s) PO QD 07/14/201008/06 Inactive ProAir HFA 90 mcg/Actuation Aerosol Inhaler RxNorm: 5424051 2 Puff(s) INH Q4H prn shortness of breath 07/14/2010 No Stop Date Active Prevacid 30 mg Cap RxNorm: 224051 1 Capsule(s) PO QD 07/14/201008/06 Inactive Zofran 4 mg Tab RxNorm: 905871 1 Tablet(s) PO Q4H prn nausea 2009 No Stop Date Active Symbicort 160 mcg-4.5 mcg/Actuation Inhalation HFA Aer osol Inhaler RxNorm: 6349929 2 Puff(s) INH BID 07/14/2010 08/06/2010 Inactive Loratadine 10 mg Tab RxNorm: 441246 1 Tablet(s) PO QD 07/14/201007/23 Inactive Gabapentin 800 mg Tab RxNorm: 882515 1 Tablet(s) PO QD 07/14/2010 Inactive Metformin ER 500 mg 24 hr Tab RxNorm: 808224 1 Tablet(s) PO 010 07/13/2010 Inactive Diazepam 10 mg Tab RxNorm: 581492 1 Tablet(s) PO BID and PRN 200909/06/2010 Inactive Premarin 0.9 mg Tab RxNorm: 940993 1 Tablet(s) PO QD 06/09/201007/13 Inactive Zofran 4 mg Tab RxNorm: 566301 1 Tablet(s) PO Q4H prn nausea 2009 No Stop Date Active ProAir HFA 90 mcg/Actuation Aerosol Inhaler RxNorm: 2445219 2 Puff(s) INH Q4H prn shortness of breath 06/09/2010 No Stop Date Active Gabapentin 800 mg Tab RxNorm: 888237 1 Tablet(s) PO QD 06/09/2010 Inactive Loratadine 10 mg Tab RxNorm: 671924 1 Tablet(s) PO QD 06/09/201006/23 Inactive Lactulose 10 gram/15 mL Oral Soln RxNorm: 245285 1 Unit Dose PO QD 06/09/2010 07/13/2010 Inactive Prevacid 30 mg Cap RxNorm: 277433 1 Capsule(s) PO QD 06/09/201007/13 Inactive Synthroid 112 mcg Tab RxNorm: 206143 1 Tablet(s) PO QD 06/09/2010 Inactive Symbicort 160 mcg-4.5 mcg/Actuation Inhalation HFA Aer osol Inhaler RxNorm: 3759666 2 Puff(s) INH BID 06/09/2010 07/13/2010 Inactive Omnicef 300 mg Cap RxNorm: 689542 2 Capsule(s) PO QD 05/07/201005/20 Inactive Metformin 500 mg Tab RxNorm: 582347 1 Tablet(s) PO QD 05/06/201005/22 Inactive ProAir HFA 90 mcg/Actuation Aerosol Inhaler RxNorm: 9901167 2 Puff(s) INH Q4H prn shortness of breath 05/06/2010 No Stop Date Active lactulose 10 gram/15 mL Oral Soln RxNorm: 204134 1 Unit Dose PO QD 05/06/2010 06/10/2011 Inactive Loratadine 10 mg Tab RxNorm: 321893 1 Tablet(s) PO QD 05/06/201005/22 Inactive Synthroid 112 mcg Tab RxNorm: 961243 1 Tablet(s) PO QD 05/06/2010 Inactive Symbicort 160 mcg-4.5 mcg/Actuation Inhalation HFA Aer osol Inhaler RxNorm: 8620234 2 Puff(s) INH BID 05/06/2010 06/08/2010 Inactive Gabapentin 800 mg Tab RxNorm: 671817 1 Tablet(s) PO QD 05/06/2010 Inactive 16.2 mg-0.1037 mg-0.0194 mg Tab RxNorm: 2361664 2 Tablet(s) PO TID PRN for gas and cramping 05/06/2010 05/12/2010 Inactive Zofran 4 mg Tab RxNorm: 247025 1 Tablet(s) PO Q4H prn nausea 200904/13/2010 Inactive MS Contin 60 mg Tab RxNorm: 142857 3 Tablet(s) PO BID 04/09/201004/22 Inactive Soma 350 mg Tab RxNorm: 696186 2 Tablet(s) PO TID 04/09/2010 05/08/20 10 Inactive Symbicort 160 mcg-4.5 mcg/Actuation Inhalation HFA Aer osol Inhaler RxNorm: 8976735 2 Puff(s) INH BID 04/08/2010 05/05/2010 Inactive Doxycycline 100 mg Cap RxNorm: 5098392 1 Capsule(s) PO BID 04/08/20 10 04/17/2010 Inactive Triamterene-Hydrochlorothiazide 37.5 mg-25 mg Cap RxNorm: 19 8316 1 Capsule(s) PO QAM 04/08/2010 09/04/2010 Inactive fluoxetine 40 mg Cap RxNorm: 444681 1 Capsule(s) PO QAM 04/08/2010 Inactive Morphine SR 120 mg multiphase 24 hr Cap RxNorm: 482463 1 Capsul e(s) PO 03/11/2010 04/07/2010 Inactive Endocet 10 mg-325 mg Tab RxNorm: 3347272 1-2 Tablet(s) PO Q4H WI N PAIN 03/11/2010 04/09/2010 Inactive Savella 100 mg Tab RxNorm: 015203 1 Tablet(s) PO BID 03/10/201004/09 Inactive Soma 350 mg Tab RxNorm: 713921 1 Tablet(s) PO TID prn spasm 010 04/09/2010 Inactive Savella 100 mg Tab RxNorm: 795565 1 Tablet(s) PO BID 02/03/201004/09 Inactive Aspirin 81 mg Tab RxNorm: 672687 1 Tablet(s) PO QD No Start Date Active Zyrtec 10 mg Tab RxNorm: 7938927 1 Tablet(s) PO QD No Start Date Active One Touch Ultra Test Strips RxNorm: Misc test at least t wice daily. No Start Date Active coenzyme Q10 200 mg capsule RxNorm: 999308 1 Capsule(s) PO QD No Star t Date Active One Touch Ultra Test Strips RxNorm: InVt BID Zainab t blood sugar at least twice daily. No Start Date 11/10/2010 Inactive Gabapentin 800 mg Tab RxNorm: 051349 1 Tablet(s) PO QD No Start Date 05/05/2010 Inactive Abilify 5 mg tablet RxNorm: 786900 1 Tablet(s) PO QD No Start Date Inactive Chantix 1 mg Tab RxNorm: 880851 1 Tablet(s) PO BID No Start Date 10/22 Inactive Ozempic 0.25 mg or 0.5 mg (2 mg/1.5 mL) subcutaneous p en injector RxNorm: 6071044 .25 Milligram(s) SQ QW No Start Date 07/04/2019 Inactive lancets 28 gauge RxNorm: Miscellaneous As needed for blo od glucose sticks No Start Date 08/23/2013 Inactive potassium chloride ER 20 mEq tablet,extended release RxNorm: 015201 2 Tablet(s) PO QD No Start Date 09/26/2018 Inactive Ventolin HFA 90 mcg/actuation Aerosol Inhaler RxNorm: 669418 1 2 Puff(s) INH Q4H prn No Start Date 01/17/2012 Inactive potassium chloride ER 20 mEq tablet,extended release RxNorm: 894124 2 Tablet(s) PO QD No Start Date 10/19/2018 Inactive Januvia 100 mg tablet RxNorm: 355485 1 Tablet(s) PO QD No Start Date 09/10/2015 Inactive Medrol (Aníbal) 4 mg Tabs in a Dose Pack RxNorm: 597562 Tablet(s) PO N o Start Date 08/09/2011 Inactive as directed Zithromax Z-Aníbal 250 mg Tab RxNorm: 364730 Tablet(s) PO No Start Date 01/25/2012 Inactive as directed vitamin B6-vitamin E-magnesium tablet RxNorm: 1 Tablet(s ) PO QHS with INH No Start Date 03/30/2018 Inactive prednisone 20 mg Tab RxNorm: 569084 1 Tablet(s) PO TID for 1wk then 1 po BID for 1wk No Start Date 01/25/2012 Inactive furosemide 40 mg tablet RxNorm: 985809 1 Tablet(s) PO QAM No Start Date 10/09/2018 Inactive Vitamin D3 1000 units Capsule RxNorm: 1 Capsule(s) PO TID No S tart Date 03/19/2015 Inactive Zofran 4 mg Tab RxNorm: 955214 1 Tablet(s) PO Q4H prn nausea No Sta rt Date 04/13/2010 Inactive Premarin 0.625 mg/g Vaginal Cream RxNorm: 864902 1 Gram (s) VAG QHS 3 times a week No Start Date 09/22/2017 Inactive oxycodone 10 mg tablet RxNorm: 6290839 1-2 Tablet(s) PO QID as n eeded for pain No Start Date 11/04/2015 Inactive Nicoderm CQ 21 mg/24 hr daily Patch RxNorm: 459597 1 Applicatio n TD QD No Start Date 08/05/2015 Inactive Topamax 50 mg tablet RxNorm: 896935 1/2 Tablet(s) PO QH S for 1wk then 1 po q HS for 1wk then 2 po q HS No Start Date 06/27/2012 Inactive Chantix Starting Month Aníbal 0.5 mg (11)-1 mg (3x14) Tab s in a Dose Pack RxNorm: 522479 Tablet(s) PO as directed No Start Date 03/01/2011 Inactive Trulicity 0.75 mg/0.5 mL subcutaneous pen injector RxNorm: 1 690788 Milliliter(s) SQ No Start Date 07/04/2019 Inactive Medrol (Aníbal) 4 mg Tabs in a Dose Pack RxNorm: 931741 Tablet(s) PO N o Start Date 01/25/2012 Inactive as directed Duragesic 100 mcg/hr Transderm Patch RxNorm: 573661 2 A pplication TD Q48H for pain No Start Date 09/05/2013 Inactive Premarin 0.9 mg Tab RxNorm: 252021 1 Tablet(s) PO QD No Start Date Inactive Zithromax Z-Aníbal 250 mg Tab RxNorm: 345742 Tablet(s) PO as direc chinmay No Start Date 01/25/2012 Inactive ondansetron 8 mg disintegrating tablet RxNorm: 752154 1 Tablet(s) PO Q6H as needed No Start Date 10/10/2018 Inactive oxycodone 15 mg tablet RxNorm: 8572155 1 Tablet(s) PO QID as nee ded for pain No Start Date 03/05/2019 Inactive ProAir HFA 90 mcg/Actuation Aerosol Inhaler RxNorm: 857812 2 Puff(s) INH Q4H prn for wheezing or shortness of breath No Start Date 12/21/2011 Inactive pravastatin 40 mg tablet RxNorm: 549563 1/2 Tablet(s) PO QOD No Sta rt Date 04/09/2015 Inactive ipratropium-albuterol 0.5 mg-3 mg(2.5 mg base)/3 mL ne bulization soln RxNorm: 2933835 1 Unit Dose INH Q4H as needed No Start Date 09/09/2016 Inactive furosemide 40 mg tablet RxNorm: 466221 1 Tablet(s) PO QAM as ne eded No Start Date 09/24/2019 Inactive Vitamin D2 oral RxNorm: 4018 oral No Start Date 03/18/2015 Inacti ve pravastatin 40 mg tablet RxNorm: 258979 1/2 Tablet(s) PO QD No Star t Date 04/09/2015 Inactive ondansetron HCl 4 mg tablet RxNorm: 172890 1 Tablet(s) PO Q4H as needed for nausea and vomiting No Start Date 04/07/2016 Inactive furosemide 40 mg tablet RxNorm: 171274 2 Tablet(s) PO QAM No Start Date 09/26/2018 Inactive gabapentin 800 mg tablet RxNorm: 405191 1/2 Tablet(s) PO BID No Sta rt Date 06/21/2017 Inactive gabapentin 800 mg tablet RxNorm: 915267 1/2 Tablet(s) PO BID No Sta rt Date 07/05/2017 Inactive ProAir HFA 90 mcg/Actuation Aerosol Inhaler RxNorm: 1071213 2 Puff(s) INH Q4H prn shortness of breath No Start Date 05/05/2010 Inactive scopolamine 1 mg over 3 days transdermal patch RxNorm: 02036 2 1 Application TD behind ear. Take off after three days No Start Date 10/10/2018 Inactive Metformin 500 mg Tab RxNorm: 229895 1 Tablet(s) PO QD No Start Date 0 05/05/2010 Inactive MS Contin 200 mg Tab RxNorm: 871870 1 Tablet(s) PO BID No Start Date 08/20/2011 Inactive Belladonna-Phenobarbital 48 mg tablet,extended release RxNor m: 2 Tablet(s) PO TID No Start Date 06/04/2016 Inactive Synthroid 112 mcg Tab RxNorm: 201903 1 Tablet(s) PO QD No Start Date 05/05/2010 Inactive Zegerid 40 mg-1.1 gram Cap RxNorm: 011818 1 Capsule(s) PO QD No Sta rt Date 01/25/2012 Inactive Premarin 0.625 mg/g Vaginal Cream RxNorm: 270905 VAG In sert 1gm vaginally at bedtime 3 times weekly No Start Date 01/17/2011 Inactive potassium chloride ER 20 mEq tablet,extended release RxNorm: 355043 1 Tablet(s) PO QD No Start Date 04/24/2019 Inactive methocarbamol 750 mg tablet RxNorm: 625737 2 Tablet(s) PO TID as needed for muscle spasm No Start Date 07/08/2014 Inactive Biaxin XL Aníbal 500 mg 24 hr Tab RxNorm: 971967 Tablet(s) PO as d irected No Start Date 04/24/2013 Inactive Vitamin D3 1,000 unit tablet RxNorm: 590194 3 Tablet(s) PO QD No St art Date 06/01/2017 Inactive Morphine SR 120 mg multiphase 24 hr Cap RxNorm: 712895 1 Capsul e(s) PO BID No Start Date 04/09/2010 Inactive Silvadene 1 % topical cream RxNorm: 110479 1 Application TOP BI D to burn area No Start Date 01/31/2017 Inactive Prednisone 20 mg Tab RxNorm: 648877 1 Tablet(s) PO TID for 3days then BID for 4days No Start Date 01/25/2012 Inactive gabapentin 600 mg tablet RxNorm: 464562 1 Tablet(s) PO BID No Start Date 01/21/2015 Inactive topiramate 50 mg tablet RxNorm: 372072 1 Tablet(s) PO QHS No Start Date 03/30/2018 Inactive Januvia 100 mg tablet RxNorm: 919842 1/2 Tablet(s) PO QD No Start D ate 12/25/2015 Inactive Diazepam 10 mg Tab RxNorm: 512463 1 Tablet(s) PO BID and PRN No Sta rt Date 06/08/2010 Inactive Medication Administered No Medication Administered data Immunizations Vaccine Codes Date Status Influenza CVX: 141 09/28/2012 Pneumovax Unknown 09/28/2012 Influenza (Adult) CVX: 141 09/02/2010 Results No Results data Procedures Procedure Codes Date THER/PROPH/DIAG INJ SC/IM CPT-4: 50765 07/10/2019 METHYLPREDNISOLONE INJECTION CPT-4: J2930 07/10/2019 URINALYSIS NONAUTO W/O SCOPE CPT-4: 24869 09/06/2018 URINE CULTURE/ COLONY COUNT CPT-4: 17680 09/06/2018 DRAIN/INJECT JOINT/BURSA CPT-4: 75871 04/29/2017 TRIAMCINOLONE ACET INJ NOS CPT-4: J3301 04/29/2017 DEXAMETHASONE SODIUM PHOS CPT-4: J1100 04/29/2017 INFLUENZA ASSAY W/OPTIC CPT-4: 64126 12/01/2016 RESPIRATORY CULTURE & STAIN CPT-4: 89617 07/09/2016 TB INTRADERMAL TEST CPT-4: 22609 04/21/2016 DRAIN/INJECT JOINT/BURSA CPT-4: 17513 11/07/2013 METHYLPREDNISOLONE 40 MG INJ CPT-4: J1030 11/07/2013 TRIAMCINOLONE ACET INJ NOS CPT-4: J3301 11/07/2013 DRAIN/INJECT JOINT/BURSA CPT-4: 41633 08/08/2013 METHYLPREDNISOLONE 40 MG INJ CPT-4: J1030 08/08/2013 TRIAMCINOLONE ACET INJ NOS CPT-4: J3301 08/08/2013 FLU VACCINE 3 YRS & > IM UP 64 CPT-4: 11144 2 PNEUMOCOCCAL VACC 23 ADITYA IM CPT-4: 13849 09/28/2012 IMMUNIZATION ADMIN CPT-4: 34800 09/28/2012 IMMUNIZATION ADMIN EACH ADD CPT-4: 16895 09/28/2012 FLU VACCINE 3 YRS & > IM UP 64 CPT-4: 59777 0 IMMUNIZATION ADMIN CPT-4: 62203 09/02/2010 METHYLPREDNISOLONE INJECTION CPT-4: J2930 05/07/2010 THER/PROPH/DIAG INJ SC/IM CPT-4: 58065 05/07/2010 Vital Signs Date Vital 11/29/2019 Blood [...] 1: 122/78 Code: 8480-6 BMI: 29.5 Code: 08175-1 Heart Rate 1: 76 bpm Height: 5'4" Respiratory Rate: 20 bpm SpO2: 96% Tempera ture: 37.0 (C) / 98.6 (F) Weight: 172 lbs 01/25/2019 Blood Pressure 1: 132/80 Code: 8480-6 BMI: 29.7 Code: 79448-9 Heart Rate 1: 84 bpm Height: 5'4" Respiratory Rate: 22 bpm SpO2: 98% Tempera ture: 36.9 (C) / 98.4 (F) Weight: 173 lbs 01/03/2019 Blood Pressure 1: 116/70 Code: 8480-6 BMI: 29.5 Code: 59290-1 Heart Rate 1: 92 bpm Height: 5'4" Respiratory Rate: 24 bpm SpO2: 98% Tempera ture: 37.2 (C) / 98.9 (F) Weight: 172 lbs 11/21/2018 Blood Pressure 1: 146/82 Code: 8480-6 BMI: 28.2 Code: 78880-6 Heart Rate 1: 88 bpm Height: 5'4" Respiratory Rate: 22 bpm SpO2: 97% Tempera ture: 36.9 (C) / 98.4 (F) Weight: 164 lbs 10/27/2018 Blood Pressure 1: 122/70 Code: 8480-6 BMI: 27.6 Code: 37711-9 Heart Rate 1: 88 bpm Height: 5'4" Respiratory Rate: 20 bpm SpO2: 96% Tempera ture: 36.8 (C) / 98.3 (F) Weight: 161 lbs 10/18/2018 Blood Pressure 1: 126/70 Code: 8480-6 BMI: 28.3 Code: 23997-0 Heart Rate 1: 76 bpm Height: 5'4" Respiratory Rate: 20 bpm SpO2: 95% Tempera ture: 37.0 (C) / 98.6 (F) Weight: 165 lbs 09/27/2018 Blood Pressure 1: 124/78 Code: 8480-6 BMI: 27.1 Code: 16602-7 Heart Rate 1: 88 bpm Height: 5'4" Respiratory Rate: 20 bpm SpO2: 98% Tempera ture: 36.4 (C) / 97.6 (F) Weight: 158 lbs 09/14/2018 Blood Pressure 1: 140/72 Code: 8480-6 BMI: 26.1 Code: 63017-4 Heart Rate 1: 100 bpm Height: 5'4" Respiratory Rate: 20 bpm SpO2: 97% Tempera ture: 36.9 (C) / 98.4 (F) Weight: 152 lbs 09/06/2018 Blood Pressure 1: 156/82 Code: 8480-6 BMI: 26.3 Code: 86451-1 Heart Rate 1: 100 bpm Height: 5'4" Respiratory Rate: 28 bpm SpO2: 95% Tempera ture: 37.2 (C) / 98.9 (F) Weight: 153 lbs 08/16/2018 Blood Pressure 1: 130/78 Code: 8480-6 Heart Rate 1: 87 bpm Respiratory Rate: 24 bpm SpO2: 94% Temperature: 36.9 (C) / 98.4 (F) We ight: 147 lbs 8 oz 07/07/2018 Blood Pressure 1: 116/78 Code: 8480-6 BMI: 22.7 Code: 12090-1 Heart Rate 1: 88 bpm Height: 5'4" Respiratory Rate: 22 bpm SpO2: 98% Tempera ture: 36.5 (C) / 97.7 (F) Weight: 132 lbs 05/31/2018 Blood Pressure 1: 128/78 Code: 8480-6 BMI: 22.3 Code: 72987-0 Heart Rate 1: 92 bpm Height: 5'4" Respiratory Rate: 26 bpm SpO2: 94% Tempera ture: 36.7 (C) / 98.1 (F) Weight: 130 lbs 03/31/2018 Blood Pressure 1: 136/78 Code: 8480-6 BMI: 21.5 Code: 79123-6 Heart Rate 1: 76 bpm Height: 5'4" Respiratory Rate: 24 bpm SpO2: 95% Tempera ture: 36.8 (C) / 98.3 (F) Weight: 125 lbs 01/26/2018 Blood Pressure 1: 142/64 Code: 8480-6 BMI: 20.6 Code: 44725-2 Heart Rate 1: 90 bpm Height: 5'4" Respiratory Rate: 24 bpm SpO2: 92% Tempera ture: 36.3 (C) / 97.3 (F) Weight: 120 lbs 10/26/2017 Blood Pressure 1: 124/70 Code: 8480-6 BMI: 20.3 Code: 23606-5 Heart Rate 1: 76 bpm Height: 5'4" Respiratory Rate: 22 bpm SpO2: 94% Tempera ture: 36.7 (C) / 98.1 (F) Weight: 118 lbs 09/23/2017 Blood Pressure 1: 106/70 Code: 8480-6 BMI: 19.2 Code: 53704-5 Heart Rate 1: 76 bpm Height: 5'4" Respiratory Rate: 20 bpm SpO2: 94% Tempera ture: 36.8 (C) / 98.3 (F) Weight: 112 lbs 08/12/2017 Blood Pressure 1: 116/68 Code: 8480-6 BMI: 20.1 Code: 88499-4 Heart Rate 1: 80 bpm Height: 5'4" Respiratory Rate: 22 bpm SpO2: 95% Tempera ture: 36.8 (C) / 98.2 (F) Weight: 117 lbs 07/06/2017 Blood Pressure 1: 136/78 Code: 8480-6 BMI: 20.6 Code: 53169-9 Heart Rate 1: 76 bpm Height: 5'4" Respiratory Rate: 24 bpm SpO2: 96% Tempera ture: 36.8 (C) / 98.2 (F) Weight: 120 lbs 06/02/2017 Blood Pressure 1: 112/70 Code: 8480-6 Heart Rate 1: 92 bpm Height: 5'4" Respiratory Rate: 24 bpm SpO2: 95% Temperature: 37.0 (C) / 98.6 (F) Weight: 04/29/2017 Blood Pressure 1: 94/52 Code: 8480-6 BMI: 19.6 C ode: 69947-9 Heart Rate 1: 84 bpm Height: 5'4" [...] 92/58 Code: 8480-6 BMI: 19.2 C ode: 15891-7 Heart Rate 1: 84 bpm Height: 5'4" Respiratory Rate: 26 bpm SpO2: 95% Tempera ture: 36.7 (C) / 98.0 (F) Weight: 112 lbs 12/01/2016 Blood Pressure 1: 114/70 Code: 8480-6 BMI: 19.2 Code: 53200-1 Heart Rate 1: 96 bpm Height: 5'4" Respiratory Rate: 28 bpm SpO2: 93% Tempera ture: 38.3 (C) / 101.0 (F) Weight: 112 lbs 10/27/2016 Blood Pressure 1: 126/66 Code: 8480-6 BMI: 19.6 Code: 92577-2 Heart Rate 1: 92 bpm Height: 5'4" Respiratory Rate: 28 bpm SpO2: 90% Tempera ture: 36.8 (C) / 98.3 (F) Weight: 114 lbs 09/09/2016 Blood Pressure 1: 126/74 Code: 8480-6 Heart Rate 1: 104 bpm Height: 5'4" Respiratory Rate: 32 bpm SpO2: 88% Temperature: 37 .2 (C) / 99.0 (F) 08/26/2016 Blood Pressure 1: 134/82 Code: 8480-6 BMI: 22.0 Code: 53594-4 Heart Rate 1: 84 bpm Height: 5'4" Respiratory Rate: 24 bpm SpO2: 94% Tempera ture: 36.8 (C) / 98.3 (F) Weight: 128 lbs 05/21/2016 Blood Pressure 1: 142/80 Code: 8480-6 BMI: 21.6 Code: 08893-3 Heart Rate 1: 104 bpm Height: 5'4" Respiratory Rate: 22 bpm SpO2: 93% Tempera ture: 36.0 (C) / 96.8 (F) Weight: 126 lbs 03/25/2016 Blood Pressure 1: 126/62 Code: 8480-6 Heart Rate 1: 88 bpm Respiratory Rate: 20 bpm SpO2: 92% Temperature: 36.8 (C) / 98.3 (F) We ight: 130 lbs 01/23/2016 Blood Pressure 1: 146/82 Code: 8480-6 BMI: 24.1 Code: 31513-5 Heart Rate 1: 92 bpm Height: 5'3" Respiratory Rate: 22 bpm Temperature: 37 .1 (C) / 98.8 (F) Weight: 136 lbs 12/26/2015 Blood Pressure 1: 142/78 Code: 8480-6 BMI: 24.6 Code: 30420-3 Heart Rate 1: 78 bpm Height: 5'3" Respiratory Rate: 20 bpm Temperature: 36 .7 (C) / 98.1 (F) Weight: 139 lbs 12/03/2015 Blood Pressure 1: 126/60 Code: 8480-6 BMI: 24.6 Code: 73280-9 Heart Rate 1: 100 bpm Height: 5'3" Respiratory Rate: 28 bpm Temperature: 37 .6 (C) / 99.6 (F) Weight: 139 lbs 09/10/2015 Blood Pressure 1: 124/64 Code: 8480-6 BMI: 23.7 Code: 65685-9 Heart Rate 1: 88 bpm Height: 5'3" Respiratory Rate: 24 bpm SpO2: 95% Tempera ture: 36.4 (C) / 97.6 (F) Weight: 134 lbs 08/06/2015 Blood Pressure 1: 114/76 Code: 8480-6 BMI: 23.2 Code: 71652-0 Heart Rate 1: 88 bpm Height: 5'3" Respiratory Rate: 22 bpm Temperature: 36 .6 (C) / 97.9 (F) Weight: 131 lbs 07/18/2015 Blood Pressure 1: 144/78 Code: 8480-6 BMI: 23.7 Code: 35441-9 Heart Rate 1: 84 bpm Height: 5'3" Respiratory Rate: 20 bpm Temperature: 37 .2 (C) / 99.0 (F) Weight: 134 lbs 04/10/2015 Blood Pressure 1: 110/64 Code: 8480-6 Heart Rate 1: 80 bpm Height: Respiratory Rate: 20 bpm Temperature: 37.1 (C) / 98.8 (F) Weight: 03/05/2015 Blood Pressure 1: 136/80 Code: 8480-6 BMI: 23.9 Code: 51273-8 Heart Rate 1: 76 bpm Height: 5'3" Respiratory Rate: 24 bpm Temperature: 37 .0 (C) / 98.6 (F) Weight: 135 lbs 01/30/2015 Blood Pressure 1: 142/80 Code: 8480-6 BMI: 23.0 Code: 54524-1 Heart Rate 1: 96 bpm Height: 5'3" Respiratory Rate: 22 bpm Temperature: 36 .2 (C) / 97.2 (F) Weight: 130 lbs 01/02/2015 Blood Pressure 1: 124/70 Code: 8480-6 BMI: 23.4 Code: 81241-4 Heart Rate 1: 84 bpm Height: 5'3" Respiratory Rate: 24 bpm SpO2: 95% Tempera ture: 36.9 (C) / 98.5 (F) Weight: 132 lbs 10/03/2014 Blood Pressure 1: 106/68 Code: 8480-6 BMI: 22.5 Code: 23579-9 Heart Rate 1: 88 bpm Height: 5'3" Respiratory Rate: 24 bpm Temperature: 37 .0 (C) / 98.6 (F) Weight: 127 lbs 08/27/2014 Blood Pressure 1: 124/68 Code: 8480-6 BMI: 21.1 Code: 71062-5 Heart Rate 1: 88 bpm Height: 5'3" [...] 1: 120/70 Code: 8480-6 BMI: 19.2 Code: 55486-0 Heart Rate 1: 70 bpm Height: 5'4" Respiratory Rate: 20 bpm Temperature: 36 .9 (C) / 98.4 (F) Weight: 112 lbs 06/28/2013 Blood Pressure 1: 102/68 Code: 8480-6 BMI: 19.6 Code: 22768-0 Heart Rate 1: 76 bpm Height: 5'4" Respiratory Rate: 20 bpm Temperature: 36 .8 (C) / 98.2 (F) Weight: 114 lbs 05/31/2013 Blood Pressure 1: 106/70 Code: 8480-6 BMI: 18.9 Code: 79794-0 Heart Rate 1: 100 bpm Height: 5'4" Respiratory Rate: 20 bpm Temperature: 36 .4 (C) / 97.6 (F) Weight: 110 lbs 05/03/2013 Blood Pressure 1: 126/70 Code: 8480-6 BMI: 19.1 Code: 12545-9 Heart Rate 1: 88 bpm Height: 5'4" Respiratory Rate: 20 bpm Temperature: 37 .1 (C) / 98.8 (F) Weight: 111 lbs 04/25/2013 Blood Pressure 1: 114/68 Code: 8480-6 BMI: 19.4 Code: 90639-5 Heart Rate 1: 92 bpm Height: 5'4" Respiratory Rate: 24 bpm SpO2: 96% Tempera ture: 37.7 (C) / 99.8 (F) Weight: 113 lbs 03/08/2013 Blood Pressure 1: 94/68 Code: 8480-6 BMI: 21.3 C ode: 64795-7 Heart Rate 1: 88 bpm Height: 5'4" Respiratory Rate: 24 bpm Temperature: 37 .0 (C) / 98.6 (F) Weight: 124 lbs 02/07/2013 Blood Pressure 1: 106/64 Code: 8480-6 BMI: 21.8 Code: 34202-8 Heart Rate 1: 84 bpm Height: 5'4" Respiratory Rate: 22 bpm Temperature: 36 .8 (C) / 98.2 (F) Weight: 127 lbs 01/10/2013 Blood Pressure 1: 122/68 Code: 8480-6 BMI: 21.6 Code: 10327-3 Heart Rate 1: 94 bpm Height: 5'4" SpO2: 94% Temperature: 36.7 (C) / 98.1 (F) Weight: 126 lbs 09/28/2012 Blood Pressure 1: 124/78 Code: 8480-6 BMI: 24.9 Code: 34018-4 Heart Rate 1: 92 bpm Height: 5'4" Respiratory Rate: 20 bpm Temperature: 36 .7 (C) / 98.1 (F) Weight: 145 lbs 06/28/2012 Blood Pressure 1: 134/80 Code: 8480-6 BMI: 24.9 Code: 52045-3 Heart Rate 1: 76 bpm Height: 5'4" Respiratory Rate: 20 bpm Temperature: 36 .8 (C) / 98.2 (F) Weight: 145 lbs 05/03/2012 Blood Pressure 1: 108/62 Code: 8480-6 BMI: 25.6 Code: 32024-5 Heart Rate 1: 88 bpm Height: 5'4" Temperature: 36.2 (C) / 97.2 (F) Weight: 149 lbs 03/01/2012 Blood Pressure 1: 124/66 Code: 8480-6 BMI: 25.1 Code: 34536-3 Heart Rate 1: 76 bpm Height: 5'4" Respiratory Rate: 20 bpm Temperature: 36 .6 (C) / 97.9 (F) Weight: 146 lbs 01/26/2012 Blood Pressure 1: 118/82 Code: 8480-6 BMI: 25.1 Code: 79719-9 Heart Rate 1: 74 bpm Height: 5'4" Temperature: 36.8 (C) / 98.2 (F) Weight: 146 lbs 11/03/2011 Blood Pressure 1: 126/80 Code: 8480-6 BMI: 27.3 Code: 62372-8 Heart Rate 1: 72 bpm Height: 5'4" [...] prozac Encounters Encounter Performer Location Codes Date ([id number]) OFFICE/OUTPATIENT VISIT EST Diagnosis: Chronic pain syndrome[ICD10: G89.4] Diagnosis: Localized edema[ICD10: R60.0] Diagnosis: Chronic obstructive pulmonary disease, unspecified[ICD10: J44.9] Diagnosis: Other fatigue[ICD10: R53.83] Diagnosis: Muscle weakness (generalized)[ICD10: M62.81] Diagnosis: Spinal stenosis, lumbar region with neurogenic claudication[ICD10: M48.062] Vika BLANCO [facility] CPT-4: 69853 11/29/2019 ([id number]) OFFICE/OUTPATIENT VISIT EST Diagnosis: Chronic pain syndrome[ICD10: G89.4] Diagnosis: Lumbar degenerative disc disease[ICD10: M51.36] Diagnosis: Muscle spasm[ICD10: M62.838] Diagnosis: Spinal stenosis, lumbar region with neurogenic claudication[ICD10: M48.062] Diagnosis: Spondylosis without myelopathy or radiculopathy, 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] Vika BLANCO [facility] CPT-4: 33139 10/30/2019 ([id number]) OFFICE/OUTPATIENT VISIT EST Diagnosis: Chronic pain syndrome[ICD10: G89.4] Vika ELDER [facility] CPT-4: 90505 10/25/2019 ([id number]) OFFICE/OUTPATIENT VISIT EST Diagnosis: Epigastric pain[ICD10: R10.13] Diagnosis: Nausea[ICD10: R11.0] Diagnosis: Chronic obstructive pulmonary disease, unspecified[ICD10: J44.9] Vika RENTERIA DO [facility] CPT-4: 90906 07/26/2019 ([id number]) OFFICE/OUTPATIENT VISIT EST Diagnosis: Chronic obstructive pulmonary disease with (acute) exacerbation[ICD10: J44.1] Diagnosis: Chronic respiratory failure with hypoxia[ICD10: J96.11] Diagnosis: Other fatigue[ICD10: R53.83] Diagnosis: Edema, unspecified[ICD10: R60.9] Vika RENTERIA DO [facility] CPT-4: 12965 07/19/2019 ([id number]) OFFICE/OUTPATIENT VISIT EST Diagnosis: Chronic obstructive pulmonary disease with acute lower respiratory infection[ICD10: J44.0] Vika RENTERIA DO [facility] CPT-4: 76113 07/10/2019 ([id number]) OFFICE/OUTPATIENT VISIT EST Diagnosis: Type 2 diabetes mellitus with hyperglycemia[ICD10: E11.65] Diagnosis: Other infective otitis externa, left ear[ICD10: H60.392] Vika RENTERIA DO [facility] CPT-4: 44165 06/05/2019 ([id number]) OFFICE/OUTPATIENT VISIT EST Diagnosis: Chronic obstructive pulmonary disease with (acute) exacerbation[ICD10: J44.1] Diagnosis: Type 2 diabetes mellitus with hyperglycemia[ICD10: E11.65] Vika RENTERIA DO [facility] CPT-4: 32074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
--- OUTSIDE RECORDS SUMMARY | 2020-04-24 23:31 | XMS REPORT | CCD ---
Author Author Yana Renteria D.O. Organization [facility] Address [address] [place] [address] Phone Care Team Providers Care Digital Publishing Specialist Name Role Phone Vika Renteria D.O., PP Unavailable CCM Unavailable Summary Purpose Interface Exchange Insurance Providers Payer name Policy type / Coverage type Covered green party ID Effective Begin Date Effective End Date [employer] [facility] [place] Medicaid [id number] 2018 U nknown Family History Family History data not found Social History Social History Element Codes Description Effective Dates Marital status Unknown 06/28/[address]: 10556512 Currently smokes tobacco 05/2013 Allergies, Adverse Reactions, [...] MS Contin 200 mg tablet,extended release RxNorm: 305091 1 Tablet(s) Oral two times a day 11/29/2019 12/29/2019 Active cyclobenzaprine 10 mg tablet RxNorm: 047435 TAKE ONE TA BLET BY MOUTH THREE TIMES A DAY NEEDED 11/21/2019 No Stop Date Active MS Contin 200 mg tablet,extended release RxNorm: 250495 1 Tablet(s) Oral two times a day replaces 100mg dose 11/03/2019 11/02/2019 Inactive MS Contin 200 mg tablet,extended release RxNorm: 450363 1 Tablet(s) Oral two times a day replaces 100mg dose 11/03/2019 11/29/2019 Inactive ferrous sulfate 325 mg (65 mg iron) tablet RxNorm: 691955 1 Tab let(s) Oral QD 10/30/2019 No Stop Date Active MS Contin 100 mg tablet,extended release RxNorm: 746056 1 Table t(s) Oral QD 10/30/2019 10/29/2019 Inactive MS Contin 100 mg tablet,extended release RxNorm: 388413 1 Table t(s) Oral QD 10/30/2019 11/02/2019 Inactive Relistor 150 mg tablet RxNorm: 6704929 TAKE THREE TABLETS BY BENOIT TH DAILY 10/25/2019 No Stop Date Active pantoprazole 40 mg tablet,delayed release RxNorm: 745426 1 Tabl et(s) Oral QD 10/25/2019 No Stop Date Active metformin 500 mg tablet RxNorm: 732336 1 Tablet(s) Oral QD 10/25/20 19 No Stop Date Active levothyroxine 25 mcg tablet RxNorm: 818134 1 Tablet(s) Oral QAM 02/201912/23/2019 Active Minipress 2 mg capsule RxNorm: 392967 1 Capsule(s) Oral QAM and 3 at bedtime 10/25/2019 No Stop Date Active Lancets, Super Thin RxNorm: 1 Unit Dose Miscellaneous QD 9 11/27/2020 Active Cymbalta 60 mg capsule,delayed release RxNorm: 009885 1 Capsule (s) Oral QAM 10/25/2019 No Stop Date Active Cymbalta 30 mg capsule,delayed release RxNorm: 732438 1 Capsule (s) Oral QAM 10/25/2019 No Stop Date Active oxycodone 15 mg tablet RxNorm: 6799732 1 Tablet(s) Oral four times a day as needed for pain 10/25/2019 11/28/2019 Inactive levothyroxine 25 mcg tablet RxNorm: 585226 1 Tablet(s) Oral QAM 02/201910/24/2019 Inactive MS Contin 100 mg tablet,extended release RxNorm: 094794 1 Tablet(s) Oral two times a day replaces fentanyl 10/25/2019 10/25/2019 Inactive Premarin 0.45 mg tablet RxNorm: 160239 TAKE ONE TABLET BY MOUTH DAILY 10/24/2019 No Stop Date Active Duragesic 100 mcg/hr transdermal patch RxNorm: 110344 2 Application TD Q48H for pain 10/18/2019 10/24/2019 Inactive gabapentin 300 mg capsule RxNorm: 671791 TAKE ONE CAPSULE BY MO UTH TWICE A DAY 10/16/2019 No Stop Date Active cyclobenzaprine 10 mg tablet RxNorm: 368420 TAKE ONE TA BLET BY MOUTH THREE TIMES A DAY NEEDED 09/27/2019 11/20/2019 Inactive ProAir HFA 90 mcg/actuation aerosol inhaler RxNorm: 026859 INHALE ONE PUFF BY MOUTH EVERY 4 HOURS FOR WHEEZING OR FOR SHORTNESS OF BREATH 09/25/2019 No Stop Date Active furosemide 40 mg tablet RxNorm: 549845 1 Tablet(s) Oral QAM as needed 09/25/2019 09/25/2019 Inactive Relistor 150 mg tablet RxNorm: 7183565 TAKE THREE TABLETS BY BENOIT TH DAILY 09/25/2019 10/24/2019 Inactive oxycodone 15 mg tablet RxNorm: 6765304 1 Tablet(s) PO QID as nee ded for pain 09/21/2019 10/24/2019 Inactive Duragesic 100 mcg/hr transdermal patch RxNorm: 373734 2 Application TD Q48H for pain 09/19/2019 10/17/2019 Inactive Daliresp 500 mcg tablet RxNorm: 9613473 1 Tablet(s) Oral QD 019 03/08/2020 Active potassium chloride ER 20 mEq tablet,extended release RxNorm: 403185 TAKE ONE TABLET BY MOUTH DAILY 07/25/2019 01/20/2020 Active Relistor 150 mg tablet RxNorm: 9037375 TAKE THREE TABLETS BY BENOIT TH DAILY 07/25/2019 07/30/2019 Inactive cyclobenzaprine 10 mg tablet RxNorm: 885605 TAKE ONE TA BLET BY MOUTH THREE TIMES A DAY NEEDED 07/25/2019 09/22/2019 Inactive fluoxetine 40 mg capsule RxNorm: 352348 TAKE ONE CAPSULE BY BENOIT TH EVERY MORNING 07/11/2019 10/24/2019 Inactive Medrol (Aníbal) 4 mg tablets in a dose pack RxNorm: 497974 6 Tablet(s) PO QD --then as directed 07/10/2019 07/15/2019 Inactive omeprazole 40 mg capsule,delayed release RxNorm: 541048 1 Capsule(s) PO QD for stomach TAKE ONE CAPSULE BY MOUTH DAILY 07/10/2019 10/24/2019 Inactive Augmentin 875 mg-125 mg tablet RxNorm: 112420 1 Tablet(s) PO BID 07/16/2019 Inactive Trulicity 0.75 mg/0.5 mL subcutaneous pen injector RxNorm: 1 142707 0.75 Milliliter(s) SQ weekly 07/05/2019 10/24/2019 Inactive Compazine 10 mg tablet RxNorm: 697407 TAKE ONE TABLET B Y MOUTH FOUR TIMES A DAY NEEDED FOR NAUSEA 06/20/2019 07/19/2019 Inactive ProAir HFA 90 mcg/actuation aerosol inhaler RxNorm: 018351 INHALE ONE PUFF BY MOUTH EVERY 4 HOURS FOR WHEEZING OR FOR SHORTNESS OF BREATH 06/20/2019 06/23/2019 Inactive Daliresp 500 mcg tablet RxNorm: 2815911 TAKE ONE TABLET BY MOUTH DAILY 06/12/2019 09/10/2019 Inactive bvbnobvo-gdxplidxe-dsczkqvng 3.5 mg/mL-10,000 unit/mL- 1 % ear solution RxNorm: 154851 4 Drop(s) otic (ear) TID to left ear 06/05/2019 10/24/2019 Inac tive furosemide 40 mg tablet RxNorm: 703428 TAKE ONE TABLET BY MOUTH EVERY MORNING 05/26/2019 07/09/2019 Inactive Duragesic 100 mcg/hr transdermal patch RxNorm: 180566 2 Application TD Q48H for pain 05/16/2019 06/14/2019 Inactive oxycodone 15 mg tablet RxNorm: 4741487 1 Tablet(s) PO QID as nee ded for pain 05/10/2019 09/20/2019 Inactive doxycycline hyclate 100 mg capsule RxNorm: 9013305 1 Capsule(s) PO BID 05/03/2019 05/12/2019 Inactive prednisone 20 mg tablet RxNorm: 832389 1 Tablet(s) PO T ID for 3 days then 1 po BID for 3 days then one daily for 3 days 05/03/2019 07/11/2019 Inactiv e Ozempic 0.25 mg or 0.5 mg (2 mg/1.5 mL) subcutaneous p en injector RxNorm: 1563937 0.5 Milligram(s) SQ QW 05/03/2019 07/09/2019 Inactive fluconazole 100 mg tablet RxNorm: 659290 1 Tablet(s) PO QD 05/03/2005/07/2019 Inactive Premarin 0.45 mg tablet RxNorm: 918383 TAKE ONE TABLET BY MOUTH DAILY 05/03/2019 10/23/2019 Inactive potassium chloride ER 20 mEq tablet,extended release RxNorm: 344492 1 Tablet(s) PO QD 04/27/2019 07/25/2019 Inactive potassium chloride ER 20 mEq tablet,extended release RxNorm: 611821 1 Tablet(s) PO QD 04/25/2019 04/26/2019 Inactive Compazine 10 mg tablet RxNorm: 055648 1 Tablet(s) PO QID as nee ded for nausea 04/25/2019 05/04/2019 Inactive ProAir HFA 90 mcg/actuation aerosol inhaler RxNorm: 594845 INHALE ONE PUFF BY MOUTH EVERY 4 HOURS FOR WHEEZING OR FOR SHORTNESS OF BREATH 04/12/2019 06/10/2019 Inactive Medrol (Aníbal) 4 mg tablets in a dose pack RxNorm: 327862 6 Tablet(s) PO QD --then as directed 04/11/2019 04/16/2019 Inactive Symbicort 160 mcg-4.5 mcg/actuation HFA aerosol inhaler RxNo rm: 3533692 2 Puff(s) INH BID 04/10/2019 10/06/2019 Inactive levothyroxine 50 mcg tablet RxNorm: 881627 1 Tablet(s) PO QD 201810/24/2019 Inactive gabapentin 300 mg capsule RxNorm: 806178 1 Capsule(s) PO BID 201810/02/2019 Inactive Symbicort 160 mcg-4.5 mcg/actuation HFA aerosol inhaler RxNo rm: 0515343 2 Puff(s) INH BID 04/06/2019 04/09/2019 Inactive oxycodone 15 mg tablet RxNorm: 7846714 1 Tablet(s) PO QID as nee ded for pain 04/05/2019 05/09/2019 Inactive levothyroxine 50 mcg tablet RxNorm: 786224 1 Tablet(s) PO QD 201804/09/2019 Inactive furosemide 40 mg tablet RxNorm: 877733 TAKE ONE TABLET BY MOUTH EVERY MORNING 03/21/2019 04/19/2019 Inactive levothyroxine 50 mcg tablet RxNorm: 649746 TAKE ONE TABLET BY M OUTH DAILY 03/21/2019 03/27/2019 Inactive Duragesic 100 mcg/hr transdermal patch RxNorm: 878132 2 Application TD Q48H for pain 03/13/2019 04/11/2019 Inactive oxycodone 15 mg tablet RxNorm: 5428734 1 Tablet(s) PO QID as nee ded for pain 03/06/2019 04/04/2019 Inactive Relistor 150 mg tablet RxNorm: 5972258 3 Tablet(s) PO QD 02/28/2019 0 05/28/2019 Inactive cyclobenzaprine 10 mg tablet RxNorm: 107500 1 Tablet(s) PO TID as needed 02/28/2019 05/28/2019 Inactive phentermine 37.5 mg tablet RxNorm: 582421 1 Tablet(s) PO QAM 201803/15/2019 Inactive Duragesic 100 mcg/hr transdermal patch RxNorm: 558185 2 Application TD Q48H for pain 02/09/2019 03/10/2019 Inactive Daliresp 500 mcg tablet RxNorm: 5794226 TAKE ONE TABLET BY MOUTH DAILY 01/31/2019 05/30/2019 Inactive Premarin 0.45 mg tablet RxNorm: 025180 1 Tablet(s) PO QD 01/31/2019 0 04/30/2019 Inactive fluoxetine 40 mg capsule RxNorm: 731041 Capsule(s) TAKE ONE CAPSULE BY MOUTH EVERY MORNING 01/31/2019 04/30/2019 Inactive levothyroxine 50 mcg tablet RxNorm: 896093 1 Tablet(s) PO QD 201804/10/2019 Inactive follow up in 3 weeks levothyroxine 50 mcg tablet RxNorm: 716827 1 Tablet(s) PO QD 201801/25/2019 Inactive follow up in 3 weeks potassium chloride ER 20 mEq tablet,extended release RxNorm: 401138 2 Tablet(s) PO BID 01/23/2019 02/14/2019 Inactive Synthroid 50 mcg tablet RxNorm: 636884 TAKE ONE TABLET BY MOUTH DAILY 01/16/2019 10/24/2019 Inactive potassium chloride ER 20 mEq tablet,extended release RxNorm: 833660 2 Tablet(s) PO BID 01/04/2019 01/22/2019 Inactive ProAir HFA 90 mcg/actuation aerosol inhaler RxNorm: 360794 INHALE ONE PUFF BY MOUTH EVERY 4 HOURS FOR WHEEZING OR SHORTNESS OF BREATH 01/04/201902/20 Inactive Request already responded to by other me ans (e.g. phone or fax) ProAir HFA 90 mcg/actuation aerosol inhaler RxNorm: 3975959 INHALE ONE PUFF BY MOUTH EVERY 4 HOURS FOR WHEEZING OR SHORTNESS OF BREATH 01/02/201912/23 Inactive gabapentin 300 mg capsule RxNorm: 006086 TAKE ONE CAPSULE BY MO UTH TWICE A DAY 12/30/2018 04/06/2019 Inactive furosemide 40 mg tablet RxNorm: 539469 1 Tablet(s) PO QAM 12/26/2018 02/23/2019 Inactive Compazine 10 mg tablet RxNorm: 065249 1 Tablet(s) PO QID as nee ded for nausea 12/07/2018 12/16/2018 Inactive metolazone 2.5 mg tablet RxNorm: 120901 TAKE ONE TABLET BY MOUT H EVERY MORNING 12/05/2018 01/03/2019 Inactive metformin ER 500 mg tablet,extended release 24 hr RxNorm: 86 0975 TAKE ONE TABLET BY MOUTH DAILY 12/05/2018 04/10/2019 Inactive Synthroid 50 mcg tablet RxNorm: 897252 1 Tablet(s) PO QD 11/25/2018 0 01/03/2019 Inactive DC any other synthroid strengths. Should be 50mcg only cyclobenzaprine 10 mg tablet RxNorm: 611312 TAKE ONE TA BLET BY MOUTH THREE TIMES A DAY NEEDED 11/09/2018 02/06/2019 Inactive metolazone 2.5 mg tablet RxNorm: 938480 1 Tablet(s) PO QAM repl aces 5mg dose 11/02/2018 12/01/2018 Inactive potassium chloride ER 20 mEq tablet,extended release RxNorm: 754175 2 Tablet(s) PO QD 2018 01/02/2019 Inactive Compazine 10 mg tablet RxNorm: 699953 1 Tablet(s) PO QID as nee ded for nausea 10/18/2018 12/07/2018 Inactive furosemide 40 mg tablet RxNorm: 355966 1 Tablet(s) PO QAM 10/12/2018 12/10/2018 Inactive ondansetron 8 mg disintegrating tablet RxNorm: 380964 1 Tablet(s) PO Q6H as needed 10/11/2018 10/17/2018 Inactive scopolamine 1 mg over 3 days transdermal patch RxNorm: 95829 2 1 Application TD behind ear. Take off after three days 10/11/2018 01/02/2019 Inactive furosemide 40 mg tablet RxNorm: 860059 1 Tablet(s) PO QAM 10/10/2018 12/26/2018 Inactive metolazone 5 mg tablet RxNorm: 281667 1 Tablet(s) PO QAM 10/06/2018 1 01/03/2018 Inactive metolazone 5 mg tablet RxNorm: 968224 1 Tablet(s) PO QAM 10/06/2018 1 12/05/2017 Inactive Xtampza ER 36 mg capsule sprinkle RxNorm: 1583332 1 Capsule(s) P O BID 10/05/2018 01/02/2019 Inactive Xtampza ER 36 mg capsule sprinkle RxNorm: 5862140 1 Capsule(s) P O BID 10/05/2018 02/12/2019 Inactive omeprazole 40 mg capsule,delayed release RxNorm: 654446 TAKE ONE CAPSULE BY MOUTH DAILY 10/03/2018 12/31/2018 Inactive Duragesic 100 mcg/hr transdermal patch RxNorm: 776579 2 Application TD Q48H for pain 09/30/2018 10/29/2018 Inactive Synthroid 50 mcg tablet RxNorm: 865294 1 Tablet(s) PO QD 09/29/2018 0 11/25/2018 Inactive DC any other synthroid strengths. Should be 50mcg only Synthroid 50 mcg tablet RxNorm: 990275 1 Tablet(s) PO QD 09/29/2018 1 11/28/2017 Inactive furosemide 40 mg tablet RxNorm: 712980 2 Tablet(s) PO Q AM for 1 week then every other day for 2 weeks 09/27/2018 10/12/2018 Inactive fluoxetine 40 mg capsule RxNorm: 765744 2 Capsule(s) PO QD 09/27/20 18 10/17/2018 Inactive potassium chloride ER 20 mEq tablet,extended release RxNorm: 421217 2 Tablet(s) PO QD for 1 week then every other day for 2 weeks 09/27/2018 2018 Inactive ProAir HFA 90 mcg/actuation aerosol inhaler RxNorm: 9659190 INHALE ONE PUFF BY MOUTH EVERY 4 HOURS FOR WHEEZING OR SHORTNESS OF BREATH 09/26/201811/23 Inactive Synthroid 75 mcg tablet RxNorm: 744529 1 Tablet(s) PO QD 09/09/2018 1 Inactive Synthroid 75 mcg tablet RxNorm: 487903 1 Tablet(s) PO QD 09/09/2018 1 11/28/2017 Inactive furosemide 40 mg tablet RxNorm: 496442 1 Tablet(s) PO QD 09/06/2018 1 Inactive potassium chloride ER 20 mEq tablet,extended release RxNorm: 452519 1 Tablet(s) PO QD 09/06/2018 09/19/2018 Inactive Duragesic 100 mcg/hr transdermal patch RxNorm: 697722 2 Application TD Q48H for pain 08/30/2018 09/28/2018 Inactive gabapentin 300 mg capsule RxNorm: 845916 TAKE ONE CAPSULE BY MO UTH TWICE A DAY 08/23/2018 12/20/2018 Inactive Daliresp 500 mcg tablet RxNorm: 2991827 TAKE ONE TABLET BY MOUTH DAILY 08/23/2018 01/19/2019 Inactive Pulmicort 1 mg/2 mL suspension for nebulization RxNorm: 6168 19 USE ONE VIAL VIA NEBULIZER BY MOUTH TWICE A DAY 08/23/2018 07/11/2019 Inactive Synthroid 88 mcg tablet RxNorm: 122679 1 Tablet(s) PO QD 08/19/2018 1 Inactive Medrol (Aníbal) 4 mg tablets in a dose pack RxNorm: 383286 Tablet(s) PO take as directed 08/16/2018 09/05/2018 Inactive Relistor 150 mg tablet RxNorm: 4389664 3 Tablet(s) PO QD 08/16/2018 1 Inactive Zithromax Z-Aníbal 250 mg tablet RxNorm: 677406 Tablet(s) PO take as directed 08/16/2018 09/05/2018 Inactive cyclobenzaprine 10 mg tablet RxNorm: 357937 1 Tablet(s) PO TID as needed 08/16/2018 11/08/2018 Inactive Synthroid 88 mcg tablet RxNorm: 979739 1 Tablet(s) PO Q D NEEDS UPDATED LABS BEFORE FURTHER REFILLS 08/08/2018 08/19/2018 Inactive Premarin 0.45 mg tablet RxNorm: 827449 1 Tablet(s) PO QD 08/03/2018 0 01/31/2019 Inactive fluoxetine 20 mg capsule RxNorm: 307441 TAKE ONE CAPSULE BY BENOIT TH DAILY 08/03/2018 09/26/2018 Inactive Xtampza ER 36 mg capsule sprinkle RxNorm: 9277455 1 Capsule(s) P O BID 08/03/2018 09/01/2018 Inactive metformin ER 500 mg tablet,extended release 24 hr RxNorm: 86 0975 1 Tablet(s) PO QD 08/03/2018 10/31/2018 Inactive Symbicort 160 mcg-4.5 mcg/actuation HFA aerosol inhaler RxNo rm: 5792597 2 Puff(s) INH BID 08/03/2018 01/29/2019 Inactive Duragesic 100 mcg/hr transdermal patch RxNorm: 753501 2 Application TD Q48H for pain 07/29/2018 08/27/2018 Inactive ProAir HFA 90 mcg/actuation aerosol inhaler RxNorm: 497876 INHALE TWO PUFFS BY MOUTH EVERY 4 HOURS FOR WHEEZING OR SHORTNESS OF BREATH 07/27/201802/2018 Inactive Relistor 150 mg tablet RxNorm: 3600057 3 Tablet(s) PO QD 07/20/2018 0 08/15/2018 Inactive metformin ER 500 mg tablet,extended release 24 hr RxNorm: 86 0975 TAKE ONE TABLET BY MOUTH DAILY 07/08/2018 08/02/2018 Inactive fluoxetine 40 mg capsule RxNorm: 003710 TAKE ONE CAPSULE BY BENOIT TH EVERY MORNING 07/08/2018 10/05/2018 Inactive Xtampza ER 18 mg capsule sprinkle RxNorm: 2922939 1 Capsule(s) P O BID 07/08/2018 08/02/2018 Inactive Relistor 150 mg tablet RxNorm: 2237387 3 Tablet(s) PO QD 07/08/2018 0 07/12/2018 Inactive Synthroid 88 mcg tablet RxNorm: 119464 1 Tablet(s) PO Q D NEEDS UPDATED LABS BEFORE FURTHER REFILLS 06/23/2018 07/07/2018 Inactive fluoxetine 40 mg capsule RxNorm: 368118 TAKE ONE CAPSULE BY BENOIT TH EVERY MORNING 06/15/2018 09/26/2018 Inactive orphenadrine citrate ER 100 mg tablet,extended release RxNor m: 775923 TAKE ONE TABLET BY MOUTH TWICE A DAY FOR MUSCLE SPASM 06/15/2018 08/15/2018 Renu ctive Duragesic 100 mcg/hr transdermal patch RxNorm: 823080 2 Application TD Q48H for pain 05/30/2018 06/28/2018 Inactive ProAir HFA 90 mcg/actuation aerosol inhaler RxNorm: 500863 INHALE TWO PUFFS BY MOUTH EVERY 4 HOURS FOR WHEEZING OR SHORTNESS OF BREATH 05/19/201803/2018 Inactive Chantix Continuing Month Box 1 mg tablet RxNorm: 475202 TAKE ONE TABLET BY MOUTH TWICE A DAY 05/19/2018 08/15/2018 Inactive oxycodone 10 mg tablet RxNorm: 6816216 1-2 Tablet(s) PO QID as n eeded for pain 05/19/2018 07/07/2018 Inactive gabapentin 300 mg capsule RxNorm: 330604 TAKE ONE CAPSULE BY MO UTH TWICE A DAY 05/18/2018 07/16/2018 Inactive ProAir HFA 90 mcg/actuation aerosol inhaler RxNorm: 007565 INHALE TWO PUFFS BY MOUTH EVERY 4 HOURS FOR WHEEZING OR SHORTNESS OF BREATH 05/04/201804/23 Inactive Augmentin 500 mg-125 mg tablet RxNorm: 537876 1 Tablet(s) PO BID 05/03/2018 Inactive oxycodone 10 mg tablet RxNorm: 2350110 1-2 Tablet(s) PO QID as n eeded for pain 04/21/2018 05/18/2018 Inactive Synthroid 88 mcg tablet RxNorm: 547639 1 Tablet(s) PO QD 04/15/2018 0 08/08/2018 Inactive Symbicort 160 mcg-4.5 mcg/actuation HFA aerosol inhaler RxNo rm: 3079798 2 Puff(s) INH BID 04/15/2018 04/10/2019 Inactive Premarin 0.45 mg tablet RxNorm: 616602 1 Tablet(s) PO QD 04/15/2018 0 08/03/2018 Inactive ProAir HFA 90 mcg/actuation aerosol inhaler RxNorm: 676434 2 Puff(s) INH Q4H prn for wheezing or shortness of breath 04/15/2018 05/03/2018 Inactive metformin ER 500 mg tablet,extended release 24 hr RxNorm: 86 0975 1 Tablet(s) PO QD 04/11/2018 07/07/2018 Inactive omeprazole 40 mg capsule,delayed release RxNorm: 286258 TAKE ONE CAPSULE BY MOUTH DAILY 04/10/2018 06/08/2018 Inactive Synthroid 88 mcg tablet RxNorm: 326325 1 Tablet(s) PO QD 04/04/2018 0 04/14/2018 Inactive Synthroid 88 mcg tablet RxNorm: 832005 1 Tablet(s) PO QD 04/04/2018 0 04/03/2018 Inactive orphenadrine citrate ER 100 mg tablet,extended release RxNor m: 809095 1 Tablet(s) PO BID for muscle spasm 04/04/2018 05/03/2018 Inactive metformin ER 500 mg tablet,extended release 24 hr RxNorm: 86 0975 1 Tablet(s) PO QD NEEDS UPDATED LABS 03/31/2018 04/11/2018 Inactive doxycycline hyclate 100 mg capsule RxNorm: 9621518 1 Capsule(s) PO BID 03/31/2018 04/09/2018 Inactive prednisone 20 mg tablet RxNorm: 080023 3 Tablet(s) PO T ID for 3 days then 1 po BID for 3 days then one daily for 3 days 03/31/2018 07/06/2018 Inactiv e Chantix Continuing Month Box 1 mg tablet RxNorm: 387333 TAKE ONE TABLET BY MOUTH TWICE A DAY 03/25/2018 03/30/2018 Inactive oxycodone 10 mg tablet RxNorm: 5350350 1-2 Tablet(s) PO QID as n eeded for pain 03/21/2018 04/20/2018 Inactive Daliresp 500 mcg tablet RxNorm: 9231330 1 Tablet(s) PO QD 03/15/2018 08/22/2018 Inactive metformin ER 500 mg tablet,extended release 24 hr RxNorm: 86 0975 1 Tablet(s) PO QD NEEDS UPDATED LABS 03/14/2018 03/31/2018 Inactive nystatin 100,000 unit/mL oral suspension RxNorm: 897529 5 Chio liter(s) PO QID 03/02/2018 03/15/2018 Inactive nystatin 100,000 unit/mL oral suspension RxNorm: 484917 5 Chio liter(s) PO QID 03/02/2018 03/01/2018 Inactive oxycodone 10 mg tablet RxNorm: 3774513 1-2 Tablet(s) PO QID as n eeded for pain 02/16/2018 03/20/2018 Inactive fluoxetine 20 mg capsule RxNorm: 269795 1 Capsule(s) PO QD 02/15/20 18 08/02/2018 Inactive metformin ER 500 mg tablet,extended release 24 hr RxNorm: 86 0975 1 Tablet(s) PO QD Needs updated labs 02/14/2018 03/14/2018 Inactive cefdinir 300 mg capsule RxNorm: 120423 1 Capsule(s) PO BID 01/27/20 18 02/04/2018 Inactive orphenadrine citrate ER 100 mg tablet,extended release RxNor m: 916524 1 Tablet(s) PO BID for muscle spasm 01/26/2018 04/04/2018 Inactive gabapentin 300 mg capsule RxNorm: 961944 1 Capsule(s) PO BID 201704/17/2018 Inactive oxycodone 10 mg tablet RxNorm: 6227926 1-2 Tablet(s) PO QID as n eeded for pain 01/17/2018 02/15/2018 Inactive Duragesic 100 mcg/hr transdermal patch RxNorm: 752286 2 Application TD Q48H for pain 01/17/2018 02/15/2018 Inactive gabapentin 300 mg capsule RxNorm: 515430 TAKE ONE CAPSULE BY MO UTH TWICE A DAY 12/20/2017 01/18/2018 Inactive fluoxetine 40 mg capsule RxNorm: 739502 TAKE ONE CAPSULE BY BENOIT TH EVERY MORNING 12/15/2017 03/14/2018 Inactive OneTouch Ultra Test strips RxNorm: TEST DAILY 11/04/2017 02/01/2018 Inactive gabapentin 300 mg capsule RxNorm: 474045 1 Capsule(s) P O TID replaces BID dosing 10/26/2017 02/22/2018 Inactive oxycodone 10 mg tablet RxNorm: 7695681 1-2 Tablet(s) PO QID as n eeded for pain 10/18/2017 01/16/2018 Inactive Duragesic 100 mcg/hr transdermal patch RxNorm: 409427 2 Application TD Q48H for pain 10/18/2017 11/16/2017 Inactive gabapentin 300 mg capsule RxNorm: 537209 1 Capsule(s) PO BID 201610/25/2017 Inactive Abilify 5 mg tablet RxNorm: 377403 1 Tablet(s) PO QAM 09/23/201702/2017 Inactive gabapentin 300 mg capsule RxNorm: 746325 1 Capsule(s) PO BID 201610/17/2017 Inactive oxycodone 10 mg tablet RxNorm: 6288596 1-2 Tablet(s) PO QID as n eeded for pain 09/15/2017 10/17/2017 Inactive Duragesic 100 mcg/hr transdermal patch RxNorm: 047370 2 Application TD Q48H for pain 09/15/2017 10/14/2017 Inactive Duragesic 100 mcg/hr transdermal patch RxNorm: 042896 2 Application TD Q48H for pain 09/15/2017 10/24/2019 Inactive oxycodone 10 mg tablet RxNorm: 4290013 1-2 Tablet(s) PO QID as n eeded for pain 09/15/2017 08/15/2018 Inactive Daliresp 500 mcg tablet RxNorm: 5123465 1 Tablet(s) PO QD 09/06/2017 03/15/2018 Inactive Ventolin HFA 90 mcg/actuation aerosol inhaler RxNorm: 020534 2 Puff(s) INH Q4H as needed 09/02/2017 05/19/2018 Inactive oxycodone 10 mg tablet RxNorm: 3760464 1-2 Tablet(s) PO QID as n eeded for pain 08/17/2017 09/14/2017 Inactive Duragesic 100 mcg/hr transdermal patch RxNorm: 558957 2 Application TD Q48H for pain 08/17/2017 09/14/2017 Inactive fluoxetine 40 mg capsule RxNorm: 294880 Capsule(s) TAKE ONE CAPSULE BY MOUTH EVERY MORNING 08/17/2017 12/14/2017 Inactive Pulmicort 1 mg/2 mL suspension for nebulization RxNorm: 6168 19 1 Unit Dose INH BID Dx: COPD (J44.9) 08/16/2017 08/22/2018 Inactive gabapentin 300 mg capsule RxNorm: 627277 1 Capsule(s) PO QHS 201610/18/2017 Inactive fluoxetine 20 mg capsule RxNorm: 369921 1 Capsule(s) PO QD 08/12/20 17 02/14/2018 Inactive Abilify 2 mg tablet RxNorm: 101163 1 Tablet(s) PO QD TA KE ONE TABLET BY MOUTH DAILY 08/12/2017 10/25/2017 Inactive metformin ER 500 mg tablet,extended release 24 hr RxNorm: 86 0975 1 Tablet(s) PO QD 08/10/2017 02/14/2018 Inactive Synthroid 112 mcg tablet RxNorm: 910625 1 Tablet(s) PO QD 08/10/2017 04/15/2018 Inactive oxycodone 10 mg tablet RxNorm: 8272363 1-2 Tablet(s) PO QID as n eeded for pain 07/19/2017 08/16/2017 Inactive Duragesic 100 mcg/hr transdermal patch RxNorm: 271430 2 Application TD Q48H for pain 07/19/2017 08/16/2017 Inactive Ventolin HFA 90 mcg/actuation aerosol inhaler RxNorm: 217702 2 Puff(s) INH Q4H as needed 07/12/2017 09/02/2017 Inactive Abilify 2 mg tablet RxNorm: 350473 1 Tablet(s) PO QD TA KE ONE TABLET BY MOUTH DAILY 07/06/2017 08/11/2017 Inactive gabapentin 800 mg tablet RxNorm: 194056 1 Tablet(s) PO TID 06/22/2007/05/2017 Inactive Chantix Starting Month Box 0.5 mg (11)-1 mg (42) table ts in dose pack RxNorm: 762472 TAKE BY MOUTH INSTRUCTED - PER PACKAGE INSTRUCTIONS 06/0707/04/2017 Inactive Ventolin HFA 90 mcg/actuation aerosol inhaler RxNorm: 460390 2 Puff(s) INH Q4H as needed 05/26/2017 07/12/2017 Inactive Duragesic 100 mcg/hr transdermal patch RxNorm: 399379 2 Application TD Q48H for pain 05/19/2017 06/17/2017 Inactive oxycodone 10 mg tablet RxNorm: 5109230 1-2 Tablet(s) PO QID as n eeded for pain 05/19/2017 07/18/2017 Inactive Abilify 2 mg tablet RxNorm: 934211 TAKE ONE TABLET BY MOUTH DAILY 0 05/10/2017 07/05/2017 Inactive Synthroid 112 mcg tablet RxNorm: 190761 1 Tablet(s) PO QD 05/06/2017 08/10/2017 Inactive metformin ER 500 mg tablet,extended release 24 hr RxNorm: 86 0975 1 Tablet(s) PO QD 05/06/2017 08/10/2017 Inactive Topamax 100 mg tablet RxNorm: 186095 1 Tablet(s) PO QHS 05/06/2017 Inactive Premarin 0.45 mg tablet RxNorm: 540340 1 Tablet(s) PO QD 05/06/2017 0 04/15/2018 Inactive orphenadrine citrate ER 100 mg tablet,extended release RxNor m: 508726 1 Tablet(s) PO TID for muscle spasm--replaces methocarbamol 04/29/2017 Inactive oxycodone 10 mg tablet RxNorm: 5077055 1-2 Tablet(s) PO QID as n eeded for pain 04/21/2017 05/18/2017 Inactive Duragesic 100 mcg/hr transdermal patch RxNorm: 482408 2 Application TD Q48H for pain 04/21/2017 05/18/2017 Inactive fluoxetine 40 mg capsule RxNorm: 643986 Capsule(s) TAKE ONE CAPSULE BY MOUTH EVERY MORNING 04/20/2017 08/17/2017 Inactive Ventolin HFA 90 mcg/actuation aerosol inhaler RxNorm: 622191 2 Puff(s) INH Q4H as needed 04/05/2017 05/26/2017 Inactive Symbicort 160 mcg-4.5 mcg/actuation HFA aerosol inhaler RxNo rm: 0383692 2 Puff(s) INH BID 03/30/2017 04/15/2018 Inactive Spiriva with HandiHaler 18 mcg and inhalation capsules RxNor m: 039213 1 Capsule(s) INH QD USING HANDIHALER 03/30/2017 02/12/2019 Inactive Duragesic 100 mcg/hr transdermal patch RxNorm: 077195 2 Application TD Q48H for pain 03/18/2017 04/16/2017 Inactive oxycodone 10 mg tablet RxNorm: 0172208 1-2 Tablet(s) PO QID as n eeded for pain 03/18/2017 04/20/2017 Inactive metformin ER 500 mg tablet,extended release 24 hr RxNorm: 86 0975 Tablet(s) TAKE ONE TABLET BY MOUTH DAILY 03/01/2017 05/06/2017 Inactive Premarin 0.45 mg tablet RxNorm: 773623 Tablet(s) TAKE ONE TABLE T BY MOUTH DAILY 03/01/2017 05/06/2017 Inactive Synthroid 112 mcg tablet RxNorm: 338616 Tablet(s) TAKE ONE TABLET BY MOUTH DAILY 03/01/2017 05/06/2017 Inactive Daliresp 500 mcg tablet RxNorm: 8399007 1 Tablet(s) PO QD 03/01/2017 09/06/2017 Inactive 16.2 mg-0.1037 mg-0.0194 mg tablet RxNorm: 2974398 Tablet(s) PO PRN for gas and cramping 02/23/2017 04/28/2017 Inactive TAKE TWO TABLET S BY MOUTH THREE TIMES A DAY NEEDED FOR GAS AND CRAMPING gabapentin 800 mg tablet RxNorm: 507974 1 Tablet(s) PO TID repl aces 600mg 02/23/2017 04/28/2017 Inactive Duragesic 100 mcg/hr transdermal patch RxNorm: 975695 2 Application TD Q48H for pain 02/17/2017 03/17/2017 Inactive fluoxetine 20 mg capsule RxNorm: 181680 1 Capsule(s) PO QD 02/18/20 17 08/12/2017 Inactive oxycodone 20 mg tablet RxNorm: 2112306 1 Tablet(s) PO QID as nee ded for pain 02/17/2017 03/17/2017 Inactive Ventolin HFA 90 mcg/actuation aerosol inhaler RxNorm: 984704 INHALE TWO PUFFS BY MOUTH EVERY 4 HOURS NEEDED 02/15/2017 04/05/2017 Inactive Silvadene 1 % topical cream RxNorm: 282904 1 Application TOP BI D to burn area 02/01/2017 09/22/2017 Inactive Topamax 100 mg tablet RxNorm: 393389 TAKE ONE TABLET BY MOUTH EVERY NIGHT AT BEDTIME 01/29/2017 05/06/2017 Inactive Chantix Starting Month Box 0.5 mg (11)-1 mg (42) table ts in dose pack RxNorm: 681769 Tablet(s) PO as directed 01/29/2017 06/01/2017 Inactive Abilify 2 mg tablet RxNorm: 239466 TAKE ONE TABLET BY MOUTH DAILY 0 01/26/2017 04/25/2017 Inactive Chantix Starting Month Box 0.5 mg (11)-1 mg (42) table ts in dose pack RxNorm: 394755 Tablet(s) PO as directed 01/20/2017 01/28/2017 Inactive gabapentin 600 mg tablet RxNorm: 265442 1 Tablet(s) PO TID 01/21/20 17 02/22/2017 Inactive Chantix Continuing Month Box 1 mg tablet RxNorm: 885598 1 Table t(s) PO BID 12/31/2016 06/01/2017 Inactive Spiriva with HandiHaler 18 mcg and inhalation capsules RxNor m: 399657 INHALE THE ENTIRE CONTENTS OF 1 CAPSULE ONCE A DAY USING HANDIHALER 12/31/201607/2017 Inactive Synthroid 112 mcg tablet RxNorm: 178297 TAKE ONE TABLET BY MOUT H DAILY 12/30/2016 03/01/2017 Inactive metformin ER 500 mg tablet,extended release 24 hr RxNorm: 86 0975 TAKE ONE TABLET BY MOUTH DAILY 12/30/2016 03/01/2017 Inactive Premarin 0.45 mg tablet RxNorm: 022005 TAKE ONE TABLET BY MOUTH DAILY 12/30/2016 03/01/2017 Inactive omeprazole 40 mg capsule,delayed release RxNorm: 967023 TAKE ONE CAPSULE BY MOUTH DAILY 12/30/2016 01/25/2018 Inactive Ventolin HFA 90 mcg/actuation aerosol inhaler RxNorm: 564222 INHALE TWO PUFFS BY MOUTH EVERY 4 HOURS NEEDED 12/28/2016 02/13/2017 Inactive fluoxetine 40 mg capsule RxNorm: 323581 TAKE ONE CAPSULE BY BENOIT TH EVERY MORNING 12/15/2016 04/20/2017 Inactive Chantix Continuing Month Box 1 mg tablet RxNorm: 791243 TAKE ONE TABLET BY MOUTH TWICE A DAY 12/04/2016 12/31/2016 Inactive doxycycline hyclate 100 mg capsule RxNorm: 7191920 1 Capsule(s) PO BID 12/01/2016 12/07/2016 Inactive Levaquin 750 mg tablet RxNorm: 855479 1 Tablet(s) PO QD 12/01/2016 Inactive Abilify 2 mg tablet RxNorm: 017404 TAKE ONE TABLET BY MOUTH DAILY 0 11/25/2016 11/30/2016 Inactive Ventolin HFA 90 mcg/actuation aerosol inhaler RxNorm: 133001 INHALE TWO PUFFS BY MOUTH EVERY 4 HOURS NEEDED 11/02/2016 12/19/2016 Inactive Chantix Continuing Month Box 1 mg tablet RxNorm: 453862 Tablet(s) PO as directed 10/30/2016 12/03/2016 Inactive Symbicort 160 mcg-4.5 mcg/actuation HFA aerosol inhaler RxNo rm: 9290595 INHALE TWO PUFFS TWO TIMES A DAY 10/30/2016 03/30/2017 Inactive Abilify 2 mg tablet RxNorm: 101855 1 Tablet(s) PO QD 10/27/201611/24 Inactive amoxicillin 500 mg capsule RxNorm: 353517 1 Capsule(s) PO TID 10/1410/23/2016 Inactive amoxicillin 500 mg capsule RxNorm: 080019 1 Capsule(s) PO TID 10/1410/13/2016 Inactive Synthroid 112 mcg tablet RxNorm: 180248 TAKE ONE TABLET BY MOUT H DAILY 09/28/2016 12/29/2016 Inactive Topamax 100 mg tablet RxNorm: 882354 TAKE ONE TABLET BY MOUTH EVERY NIGHT AT BEDTIME 09/28/2016 01/28/2017 Inactive Premarin 0.45 mg tablet RxNorm: 078320 TAKE ONE TABLET BY MOUTH DAILY 09/28/2016 12/29/2016 Inactive metformin ER 500 mg tablet,extended release 24 hr RxNorm: 86 0975 TAKE ONE TABLET BY MOUTH DAILY 09/28/2016 12/29/2016 Inactive Ventolin HFA 90 mcg/actuation aerosol inhaler RxNorm: 411366 INHALE TWO PUFFS BY MOUTH EVERY 4 HOURS NEEDED 09/22/2016 10/23/2016 Inactive Pulmicort 1 mg/2 mL suspension for nebulization RxNorm: 6168 19 1 Unit Dose INH BID Dx: COPD (J44.9) 09/10/2016 08/16/2017 Inactive Pulmicort 1 mg/2 mL suspension for nebulization RxNorm: 6168 19 1 Unit Dose INH BID 09/10/2016 09/09/2016 Inactive Brovana 15 mcg/2 mL solution for nebulization RxNorm: 589075 1 Unit Dose INH BID Dx: COPD (J44.9) 09/10/2016 01/25/2018 Inactive Brovana 15 mcg/2 mL solution for nebulization RxNorm: 228066 1 Unit Dose INH BID 09/10/2016 09/09/2016 Inactive ipratropium-albuterol 0.5 mg-3 mg(2.5 mg base)/3 mL ne bulization soln RxNorm: 9207441 1 Unit Dose INH Q4H as needed Dx: COPD (J44.9) 09/10/2016 0 02/12/2019 Inactive orphenadrine citrate ER 100 mg tablet,extended release RxNor m: 138396 1 Tablet(s) PO BID for muscle spasm--replaces methocarbamol 09/09/2016 Inactive Chantix Continuing Month Box 1 mg tablet RxNorm: 545163 Tablet(s) PO as directed 09/09/2016 10/30/2016 Inactive orphenadrine citrate ER 100 mg tablet,extended release RxNor m: 604512 1 Tablet(s) PO BID for muscle spasm 09/09/2016 09/08/2016 Inactive Spiriva with HandiHaler 18 mcg and inhalation capsules RxNor m: 136999 INHALE THE ENTIRE CONTENTS OF 1 CAPSULE ONCE A DAY USING HANDIHALER 09/01/201605/2017 Inactive Daliresp 500 mcg tablet RxNorm: 0754142 1 Tablet(s) PO QD 08/27/2016 03/01/2017 Inactive prednisone 20 mg tablet RxNorm: 112877 3 Tablet(s) PO T ID for 3 days then 1 po BID for 3 days then one daily for 3 days 08/26/2016 04/28/2017 Inactiv e Wellbutrin XL 300 mg 24 hr tablet, extended release RxNorm: 237035 TAKE ONE TABLET BY MOUTH EVERY MORNING 07/29/2016 10/26/2016 Inactive gabapentin 600 mg tablet RxNorm: 549011 1 Tablet(s) PO BID 06/26/20 16 12/22/2016 Inactive fluoxetine 40 mg capsule RxNorm: 711027 TAKE ONE CAPSULE BY BENOIT TH EVERY MORNING 06/24/2016 11/20/2016 Inactive Duragesic 100 mcg/hr transdermal patch RxNorm: 634869 2 Application TD Q48H for pain 06/05/2016 07/04/2016 Inactive oxycodone 10 mg tablet RxNorm: 2971656 1-2 Tablet(s) PO QID as n eeded for pain 06/05/2016 03/17/2017 Inactive Belladonna-Phenobarbital 48 mg tablet,extended release RxNor m: 2 Tablet(s) PO TID 06/05/2016 01/19/2017 Inactive Premarin 0.45 mg tablet RxNorm: 926088 TAKE ONE TABLET BY MOUTH DAILY 05/27/2016 09/23/2016 Inactive Topamax 100 mg tablet RxNorm: 640595 TAKE ONE TABLET BY MOUTH EVERY NIGHT AT BEDTIME 05/27/2016 09/27/2016 Inactive Synthroid 112 mcg tablet RxNorm: 671282 TAKE ONE TABLET BY MOUT H DAILY 05/27/2016 09/23/2016 Inactive metformin ER 500 mg tablet,extended release 24 hr RxNorm: 86 0975 TAKE ONE TABLET BY MOUTH DAILY 05/27/2016 09/23/2016 Inactive Symbicort 160 mcg-4.5 mcg/actuation HFA aerosol inhaler RxNo rm: 6173243 INHALE TWO PUFFS TWO TIMES A DAY 05/27/2016 10/23/2016 Inactive Ventolin HFA 90 mcg/actuation aerosol inhaler RxNorm: 190947 INHALE TWO PUFFS BY MOUTH EVERY 4 HOURS NEEDED 05/21/2016 07/07/2016 Inactive omeprazole 40 mg capsule,delayed release RxNorm: 872853 1 Capsu le(s) PO QD 05/06/2016 08/03/2016 Inactive metformin ER 500 mg tablet,extended release 24 hr RxNorm: 86 0975 TAKE ONE TABLET BY MOUTH DAILY 04/23/2016 05/22/2016 Inactive methocarbamol 750 mg tablet RxNorm: 152065 2 Tablet(s) PO TID as needed for muscle spasm 04/23/2016 09/08/2016 Inactive Synthroid 112 mcg tablet RxNorm: 273485 TAKE ONE TABLET BY MOUT H DAILY 04/23/2016 05/22/2016 Inactive Spiriva with HandiHaler 18 mcg and inhalation capsules RxNor m: 014119 INHALE THE ENTIRE CONTENTS OF 1 CAPSULE ONCE A DAY USING HANDIHALER 04/09/201608/2016 Inactive Diflucan 100 mg tablet RxNorm: 009207 1 Tablet(s) PO QD 04/08/2016 Inactive doxycycline hyclate 100 mg capsule RxNorm: 0784353 1 Capsule(s) PO BID 04/08/2016 04/17/2016 Inactive doxycycline hyclate 100 mg capsule RxNorm: 1069028 1 Capsule(s) PO BID 04/08/2016 04/07/2016 Inactive Diflucan 100 mg tablet RxNorm: 015967 1 Tablet(s) PO QD 04/08/2016 Inactive ondansetron HCl 4 mg tablet RxNorm: 174561 1 Tablet(s) PO Q4H as needed for nausea and vomiting 04/08/2016 09/22/2017 Inactive gabapentin 600 mg tablet RxNorm: 616840 TAKE ONE TABLET BY MOUT H TWICE A DAY 03/24/2016 06/25/2016 Inactive Synthroid 112 mcg tablet RxNorm: 941350 TAKE ONE TABLET BY MOUT H DAILY 02/25/2016 04/22/2016 Inactive Levaquin 500 mg tablet RxNorm: 630837 1 Tablet(s) PO QD 01/23/2016 Inactive prednisone 20 mg tablet RxNorm: 225911 1 Tablet(s) PO T ID for 3 days then 1 po BID for 3 days then one daily for 3 days 01/23/2016 08/25/2016 Inactiv e Narvar Ultra Test strips RxNorm: TEST BLOOD SUGAR ONCE DAILY 250.00 01/09/2016 11/04/2017 Inactive methocarbamol 750 mg tablet RxNorm: 429767 2 Tablet(s) PO TID as needed for muscle spasm 01/09/2016 04/23/2016 Inactive lactulose 10 gram/15 mL oral solution RxNorm: 488593 [address](s) PO QD 01/09/2016 09/22/2017 Inactive TAKE 1 TABLESPOON BY MOUTH ONCE DAILY metformin ER 500 mg tablet,extended release 24 hr RxNorm: 86 0975 1 Tablet(s) PO QD 12/26/2015 04/22/2016 Inactive fluoxetine 20 mg capsule RxNorm: 399299 1 Capsule(s) PO QD 12/23/19 16 06/19/2016 Inactive Premarin 0.45 mg tablet RxNorm: 553417 TAKE ONE TABLET BY MOUTH DAILY 12/23/2015 05/20/2016 Inactive fluoxetine 40 mg capsule RxNorm: 304663 1 Capsule(s) PO QD 12/23/19 16 06/19/2016 Inactive TAKE ONE CAPSULE BY MOUTH EV JANKI MORNING azithromycin 500 mg tablet RxNorm: 313893 1 Tablet(s) PO QD 12/19/2015 Inactive Zofran 4 mg tablet RxNorm: 463744 1 Tablet(s) PO Q4H prn nausea /vomiting 12/13/2015 03/30/2018 Inactive azithromycin 500 mg tablet RxNorm: 806983 1 Tablet(s) PO QD 12/12/2015 Inactive Duragesic 100 mcg/hr transdermal patch RxNorm: 027531 2 Application TD Q48H for pain 12/09/2015 01/07/2016 Inactive oxycodone 10 mg tablet RxNorm: 5984669 1-2 Tablet(s) PO QID as n eeded for pain 12/09/2015 06/04/2016 Inactive Bactroban 2 % topical cream RxNorm: 471982 Application TOP BID 11/2208/25/2016 Inactive doxycycline hyclate 100 mg capsule RxNorm: 5441222 1 Capsule(s) PO BID 12/03/2015 12/12/2015 Inactive Topamax 100 mg tablet RxNorm: 130146 TAKE ONE TABLET BY MOUTH EVERY NIGHT AT BEDTIME 11/25/2015 05/22/2016 Inactive Symbicort 160 mcg-4.5 mcg/actuation HFA aerosol inhaler RxNo rm: 2797529 INHALE TWO PUFFS TWO TIMES A DAY 11/25/2015 05/22/2016 Inactive Synthroid 112 mcg tablet RxNorm: 217721 Tablet(s) TAKE ONE TABLET BY MOUTH DAILY 11/25/2015 02/22/2016 Inactive omeprazole 40 mg capsule,delayed release RxNorm: 079310 1 Capsu le(s) PO QD 11/12/2015 05/05/2016 Inactive oxycodone 10 mg tablet RxNorm: 6537112 1-2 Tablet(s) PO QID as n eeded for pain 11/05/2015 12/08/2015 Inactive Duragesic 100 mcg/hr transdermal patch RxNorm: 984094 2 Application TD Q48H for pain 11/05/2015 12/04/2015 Inactive omeprazole 40 mg capsule,delayed release RxNorm: 290110 1 Capsu le(s) PO QD 10/07/2015 11/11/2015 Inactive Januvia 100 mg tablet RxNorm: 467859 TAKE ONE TABLET BY MOUTH DAILY 09/11/2015 12/25/2015 Inactive Zithromax 500 mg tablet RxNorm: 525121 1 Tablet(s) PO QD 09/10/2015 1 Inactive prednisone 20 mg tablet RxNorm: 215184 1 Tablet(s) PO T ID for 3 days then 1 po BID for 3 days then one daily for 3 days 09/10/2015 08/25/2016 Inactiv e Wellbutrin XL 300 mg 24 hr tablet, extended release RxNorm: 756749 1 Tablet(s) PO QAM 09/10/2015 12/02/2015 Inactive Topamax 100 mg tablet RxNorm: 405854 TAKE ONE TABLET BY MOUTH EVERY NIGHT AT BEDTIME 09/02/2015 11/24/2015 Inactive Synthroid 112 mcg tablet RxNorm: 951643 TAKE ONE TABLET BY MOUT H DAILY 09/02/2015 11/25/2015 Inactive methocarbamol 750 mg tablet RxNorm: 152872 2 Tablet(s) PO TID as needed for muscle spasm 08/15/2015 01/09/2016 Inactive Wellbutrin XL 150 mg 24 hr tablet, extended release RxNorm: 289909 TAKE ONE TABLET BY MOUTH EVERY MORNING 08/13/2015 08/13/2015 Inactive gabapentin 600 mg tablet RxNorm: 493890 1 Tablet(s) PO BID 08/13/20 15 02/08/2016 Inactive Wellbutrin XL 300 mg 24 hr tablet, extended release RxNorm: 833608 1 Tablet(s) PO QAM 08/06/2015 09/09/2015 Inactive Wellbutrin XL 150 mg 24 hr tablet, extended release RxNorm: 327835 1 Tablet(s) PO QAM 07/18/2015 08/05/2015 Inactive prednisone 20 mg tablet RxNorm: 661041 1 Tablet(s) PO BID 07/18/2015 07/22/2015 Inactive doxycycline hyclate 100 mg tablet,delayed release RxNorm: 43 4018 1 Tablet(s) PO BID 07/18/2015 07/27/2015 Inactive pravastatin 40 mg tablet RxNorm: 216298 1 Tablet(s) PO QD NEEDS FASTING LAB 07/15/2015 07/14/2015 Inactive pravastatin 40 mg tablet RxNorm: 228007 1 Tablet(s) PO QD NEEDS FASTING LAB 07/15/2015 01/25/2018 Inactive Ventolin HFA 90 mcg/actuation aerosol inhaler RxNorm: 354074 2 Puff(s) INH Q4H 07/08/2015 07/07/2015 Inactive prn Premarin 0.45 mg tablet RxNorm: 042202 1 Tablet(s) PO QD 07/01/2015 0 12/22/2015 Inactive pravastatin 40 mg tablet RxNorm: 514852 1 Tablet(s) PO QD NEEDS FASTING LAB 06/14/2015 07/15/2015 Inactive Ventolin HFA 90 mcg/actuation aerosol inhaler RxNorm: 7956623 2 Puff(s) INH Q4H 06/06/2015 07/08/2015 Inactive prn albuterol sulfate 2.5 mg/3 mL (0.083 %) solution for n ebulization RxNorm: 144992 1 Unit Dose INH QID 05/30/2015 No Stop Date Active Duragesic 100 mcg/hr transdermal patch RxNorm: 519496 2 Application TD Q48H for pain 04/29/2015 05/28/2015 Inactive gabapentin 600 mg tablet RxNorm: 203321 1 Tablet(s) PO BID 04/11/20 15 08/13/2015 Inactive Onglyza 5 mg tablet RxNorm: 599647 1 Tablet(s) PO QD for blood suga r 04/10/2015 04/15/2015 Inactive [Brand Copay Card: RxBIN:[id number] PCN:CRISTIANA RxGRP:[id number] ID#:[id number]] methocarbamol 750 mg tablet RxNorm: 230566 2 Tablet(s) PO TID as needed for muscle spasm 03/28/2015 08/15/2015 Inactive pravastatin 40 mg tablet RxNorm: 289671 1 Tablet(s) PO QD 03/19/2015 03/18/2015 Inactive pravastatin 40 mg tablet RxNorm: 850849 1 Tablet(s) PO QD 03/19/2015 06/14/2015 Inactive lactulose 10 gram/15 mL oral solution RxNorm: 343099 [address]s) PO QD 03/07/2015 01/09/2016 Inactive TAKE 1 TABLESPOON BY MOUTH ONCE DAILY oxycodone 20 mg tablet RxNorm: 0128999 1 Tablet(s) PO QID as nee ded for pain 03/05/2015 07/08/2015 Inactive Topamax 100 mg tablet RxNorm: 789378 1 Tablet(s) PO QHS TAKE ONE TABLET BY MOUTH AT BEDTIME 02/25/2015 02/12/2019 Inactive metformin ER 500 mg tablet,extended release 24 hr RxNorm: 86 0975 1 Tablet(s) PO QD 02/11/2015 03/04/2015 Inactive take one tablet by mouth every day Daliresp 500 mcg tablet RxNorm: 3405896 1 Tablet(s) PO QD 02/11/2015 08/09/2015 Inactive Endocet 10 mg-325 mg tablet RxNorm: 8793351 1 Tablet(s) PO Q4H as needed for pain 01/23/2015 01/23/2015 Inactive gabapentin 600 mg tablet RxNorm: 903728 1 Tablet(s) PO BID 01/23/20 15 04/11/2015 Inactive methocarbamol 750 mg tablet RxNorm: 651625 2 Tablet(s) PO TID as needed for muscle spasm 01/15/2015 02/13/2015 Inactive fluoxetine 40 mg capsule RxNorm: 518972 1 Capsule(s) PO QD 01/14/20 15 12/23/2015 Inactive TAKE ONE CAPSULE BY MOUTH EV JANKI MORNING fluoxetine 20 mg capsule RxNorm: 231608 1 Capsule(s) PO QD 01/14/20 15 12/23/2015 Inactive Premarin 0.45 mg tablet RxNorm: 497747 1 Tablet(s) PO QD 01/02/2015 0 07/01/2015 Inactive Endocet 10 mg-325 mg tablet RxNorm: 7925917 1-2 Tablet(s) PO Q4H 02/12/2019 Inactive PRN PAIN Duragesic 100 mcg/hr transdermal patch RxNorm: 467035 2 Application TD Q48H for pain 12/25/2014 01/23/2015 Inactive Topamax 100 mg tablet RxNorm: 844220 1 Tablet(s) PO QHS TAKE ONE TABLET BY MOUTH AT BEDTIME 12/25/2014 02/24/2015 Inactive Tudorza Pressair 400 mcg/actuation breath activated RxNorm: 1962870 1 BID INHALE ONE PUFF INTO LUNGS TWO TIMES A DAY 12/17/2014 05/15/2015 Inactive Endocet 10 mg-325 mg tablet RxNorm: 0392447 1-2 Tablet(s) PO Q4H 12/19/2014 Inactive PRN PAIN Duragesic 100 mcg/hr transdermal patch RxNorm: 005116 2 Application TD Q48H for pain 11/20/2014 12/24/2014 Inactive Insider PagesTouch Ultra Test strips RxNorm: TEST BLOOD SUGAR ONCE DAILY 250.00 11/16/2014 01/08/2016 Inactive omeprazole 40 mg capsule,delayed release RxNorm: 437866 1 Capsu le(s) PO QD 11/13/2014 11/12/2015 Inactive metformin ER 500 mg tablet,extended release 24 hr RxNorm: 86 0975 1 Tablet(s) PO QD 11/12/2014 02/11/2015 Inactive take one tablet by mouth every day Symbicort 160 mcg-4.5 mcg/actuation HFA aerosol inhaler RxNo rm: 5806816 2 Puff(s) INH BID 11/12/2014 03/11/2015 Inactive INHALE 2 PUFFS O RALLY TWO TIMES A DAY gabapentin 800 mg tablet RxNorm: 909429 1 Tablet(s) PO QD TAKE ONE TABLET BY MOUTH ONCE A DAY 10/22/2014 01/01/2015 Inactive Endocet 10 mg-325 mg tablet RxNorm: 8960839 1-2 Tablet(s) PO Q4H 11/15/2014 Inactive PRN PAIN Duragesic 100 mcg/hr transdermal patch RxNorm: 225396 2 Application TD Q48H for pain 10/17/2014 11/19/2014 Inactive gabapentin 800 mg tablet RxNorm: 195372 1 Tablet(s) PO QD TAKE ONE TABLET BY MOUTH ONCE A DAY 10/04/2014 10/21/2014 Inactive Premarin 0.9 mg tablet RxNorm: 997667 1 Tablet(s) PO QD TAKE ONE TABLET BY MOUTH ONCE A DAY 10/04/2014 01/01/2015 Inactive Spiriva with HandiHaler 18 mcg & inhalation capsules RxNorm: 680608 1 Capsule(s) INH QD 10/03/2014 04/30/2015 Inactive Levaquin 500 mg tablet RxNorm: 495792 1 Tablet(s) PO QD 10/03/2014 Inactive prednisone 20 mg tablet RxNorm: 991457 1 Tablet(s) PO QD 10/03/201412/09/2013 Inactive Duragesic 100 mcg/hr transdermal patch RxNorm: 810903 2 Application TD Q48H for pain 09/18/2014 10/16/2014 Inactive Endocet 10 mg-325 mg tablet RxNorm: 6406939 1-2 Tablet(s) PO Q4H 10/16/2014 Inactive PRN PAIN Synthroid 112 mcg tablet RxNorm: 303004 1 Tablet(s) QD 09/10/2014 Inactive Synthroid 112 mcg tablet RxNorm: 921959 TAKE ONE TABLET BY MOUTH ONE TIME A DAY. NEEDS LABS 09/10/2014 02/06/2015 Inactive omeprazole 40 mg capsule,delayed release RxNorm: 194892 1 Capsu le(s) PO QD 09/03/2014 11/13/2014 Inactive omeprazole 40 mg capsule,delayed release RxNorm: 041976 1 Capsu le(s) PO QD 09/03/2014 09/02/2014 Inactive Spiriva with HandiHaler 18 mcg & inhalation capsules RxNorm: 118830 1 Capsule(s) INH QD 08/27/2014 10/02/2014 Inactive gabapentin 600 mg tablet RxNorm: 268081 1 Tablet(s) PO BID 08/27/20 14 10/22/2014 Inactive Endocet 10 mg-325 mg tablet RxNorm: 4699616 1-2 Tablet(s) PO Q4H 09/17/2014 Inactive PRN PAIN fentanyl 100 mcg/hr transdermal patch RxNorm: 397642 1 Unit Dos e TD QD 08/21/2014 09/19/2014 Inactive Daliresp 500 mcg tablet RxNorm: 7271682 1 Tablet(s) PO QD 08/13/2014 02/11/2015 Inactive Synthroid 112 mcg tablet RxNorm: 032074 TAKE ONE TABLET BY MOUTH ONE TIME A DAY. NEEDS LABS 08/10/2014 09/10/2014 Inactive Endocet 10 mg-325 mg tablet RxNorm: 5141999 1-2 Tablet(s) PO Q4H 08/17/2014 Inactive PRN PAIN Duragesic 100 mcg/hr transdermal patch RxNorm: 978847 2 Application TD Q48H for pain 07/19/2014 09/17/2014 Inactive fluoxetine 40 mg capsule RxNorm: 100688 1 Capsule(s) PO QD 07/17/20 14 01/14/2015 Inactive TAKE ONE CAPSULE BY MOUTH EV JANKI MORNING fluoxetine 20 mg capsule RxNorm: 083304 1 Capsule(s) PO QD 07/17/20 14 01/14/2015 Inactive Spiriva with HandiHaler 18 mcg & inhalation capsules RxNorm: 466504 1 Capsule(s) INH QD 07/17/2014 08/26/2014 Inactive INHALE CONTENTS OF 1 CAPSULE(S) WITH HANDIHALER ONCE DAILY Zofran 4 mg tablet RxNorm: 254565 1 Tablet(s) PO Q4H prn nausea 07/25/2014 Inactive Synthroid 112 mcg tablet RxNorm: 946269 1 Tablet(s) PO QD 07/09/2014 07/09/2014 Inactive methocarbamol 750 mg tablet RxNorm: 548664 2 Tablet(s) PO TID as needed for muscle spasm 07/09/2014 09/06/2014 Inactive Synthroid 112 mcg tablet RxNorm: 720568 1 Tablet(s) PO QD - nee d labs 07/09/2014 08/07/2014 Inactive Medrol (Aníbal) 4 mg tablets in a dose pack RxNorm: 847086 6 Tablet(s) PO QD --then as directed 07/03/2014 07/08/2014 Inactive Tudorza Pressair 400 mcg/actuation breath activated RxNorm: 3737512 1 Puff(s) INH BID 07/03/2014 12/17/2014 Inactive cefdinir 300 mg capsule RxNorm: 322269 1 Capsule(s) PO BID 07/03/20 14 07/12/2014 Inactive Topamax 100 mg tablet RxNorm: 072622 Tablet(s) TAKE ONE TABLET BY MOUTH AT BEDTIME 07/02/2014 02/25/2015 Inactive Duragesic 100 mcg/hr transdermal patch RxNorm: 570574 2 Application TD Q48H for pain 06/25/2014 07/18/2014 Inactive Endocet 10 mg-325 mg tablet RxNorm: 1063476 1-2 Tablet(s) PO Q4H 07/18/2014 Inactive PRN PAIN metformin ER 500 mg tablet,extended release 24 hr RxNorm: 86 0975 1 Tablet(s) PO QD Needs labs 06/18/2014 07/01/2014 Inactive take one tablet by mouth every day Duragesic 100 mcg/hr transdermal patch RxNorm: 155472 2 Application TD Q48H for pain 05/22/2014 06/24/2014 Inactive Synthroid 112 mcg tablet RxNorm: 672495 1 Tablet(s) PO QD 05/22/2014 07/09/2014 Inactive Endocet 10 mg-325 mg tablet RxNorm: 0171425 1-2 Tablet(s) PO Q4H 06/20/2014 Inactive PRN PAIN Endocet 10 mg-325 mg tablet RxNorm: 1176266 1-2 Tablet(s) PO Q4H 05/21/2014 Inactive PRN PAIN Duragesic 100 mcg/hr transdermal patch RxNorm: 326816 2 Application TD Q48H for pain 04/25/2014 05/21/2014 Inactive Daliresp 500 mcg tablet RxNorm: 4785919 1 Tablet(s) PO QD 04/24/2014 08/13/2014 Inactive Symbicort 160 mcg-4.5 mcg/actuation HFA aerosol inhaler RxNo rm: 6576129 2 Puff(s) INH BID 04/24/2014 08/21/2014 Inactive INHALE 2 PUFFS O RALLY TWO TIMES A DAY metformin ER 500 mg tablet,extended release 24 hr RxNorm: 86 0975 1 Tablet(s) PO QD 04/24/2014 11/12/2014 Inactive TAKE ONE TABLET BY MOUTH EVERY DAY [AttnRPh:Saving Apply/Adjudicate RxGRP:LDMGRP RxBIN:[id number] RxPCN:2012 PCode:01 ID#:[id number]] Symbicort 160 mcg-4.5 mcg/actuation HFA aerosol inhaler RxNo rm: 5847017 2 Puff(s) INH BID 04/24/2014 11/12/2014 Inactive INHALE 2 PUFFS O RALLY TWO TIMES A DAY Premarin 0.9 mg tablet RxNorm: 558692 1 Tablet(s) PO QD 04/24/2014 Inactive TAKE ONE TABLET BY MOUTH EVERY DAY metformin ER 500 mg tablet,extended release 24 hr RxNorm: 86 0975 1 Tablet(s) PO QD Needs labs 04/24/2014 06/18/2014 Inactive TAKE ONE TABLET BY MOUTH EVERY DAY [AttnRPh:Saving Apply/Adjudicate RxGRP:LDMGRP RxBIN:[id number] RxPCN:2012 PCode:01 ID#:[id number]] gabapentin 800 mg tablet RxNorm: 303317 1 Tablet(s) PO QD 04/24/2014 10/04/2014 Inactive TAKE ONE TABLET BY MOUTH EVERY DAY Topamax 100 mg tablet RxNorm: 775514 1 Tablet(s) PO QHS 04/17/2014 Inactive Topamax 100 mg tablet RxNorm: 054349 TAKE ONE TABLET BY MOUTH A T BEDTIME 04/17/2014 07/01/2014 Inactive Tudorza Pressair 400 mcg/actuation breath activated RxNorm: 6103989 1 Puff(s) INH BID 04/11/2014 07/02/2014 Inactive Duragesic 100 mcg/hr transdermal patch RxNorm: 297150 2 Application TD Q48H for pain 03/27/2014 04/24/2014 Inactive Endocet 10 mg-325 mg tablet RxNorm: 6315069 1-2 Tablet(s) PO Q4H 04/24/2014 Inactive PRN PAIN Robaxin 750 mg tablet RxNorm: 195779 2 Tablet(s) PO TID as need ed for spasm 02/23/2014 03/28/2015 Inactive Duragesic 100 mcg/hr transdermal patch RxNorm: 047217 2 Application TD Q48H for pain 02/23/2014 No Stop Date Active Endocet 10 mg-325 mg tablet RxNorm: 9683276 1-2 Tablet(s) PO Q4H 03/23/2014 Inactive PRN PAIN Synthroid 112 mcg tablet RxNorm: 516549 1 Tablet(s) PO QD TAKE ONE TABLET BY MOUTH EVERY DAY 02/15/2014 05/22/2014 Inactive Zithromax 500 mg tablet RxNorm: 141232 1 Tablet(s) PO QD 01/30/2014 0 02/05/2014 Inactive Diflucan 100 mg tablet RxNorm: 956943 1 Tablet(s) PO QD 01/30/2014 Inactive prednisone 20 mg tablet RxNorm: 971445 1 Tablet(s) PO BID 01/30/2014 02/05/2014 Inactive fluoxetine 40 mg capsule RxNorm: 375482 1 Capsule(s) PO QD 01/23/20 14 07/16/2014 Inactive TAKE ONE CAPSULE BY MOUTH EV JANKI MORNING fluoxetine 40 mg capsule RxNorm: 163228 1 Capsule(s) PO QD 01/23/20 14 07/17/2014 Inactive TAKE ONE CAPSULE BY MOUTH EV JANKI MORNING cefdinir 300 mg capsule RxNorm: 163399 1 Capsule(s) PO BID 01/16/20 14 01/29/2014 Inactive Zithromax 500 mg tablet RxNorm: 281854 1 Tablet(s) PO QD 01/16/2014 0 01/22/2014 Inactive prednisone 20 mg tablet RxNorm: 051031 1 Tablet(s) PO BID 01/16/2014 01/22/2014 Inactive Spiriva with HandiHaler 18 mcg and inhalation capsules RxNor m: 293147 1 Capsule(s) INH QD 12/18/2013 07/17/2014 Inactive INHALE CONTENT S OF 1 CAPSULE(S) WITH HANDIHALER ONCE DAILY fluoxetine 20 mg capsule RxNorm: 511097 1 Capsule(s) PO QD 12/18/19 14 06/15/2014 Inactive Spiriva with HandiHaler 18 mcg & inhalation capsules RxNorm: 163931 1 Capsule(s) INH QD 12/18/2013 06/15/2014 Inactive INHALE CONTENTS OF 1 CAPSULE(S) WITH HANDIHALER ONCE DAILY fluoxetine 20 mg capsule RxNorm: 118266 1 Capsule(s) PO QD 12/18/19 14 07/17/2014 Inactive cefdinir 300 mg capsule RxNorm: 207702 2 Capsule(s) PO QD 12/12/2013 12/21/2013 Inactive Duragesic 100 mcg/hr transdermal patch RxNorm: 549235 2 Application TD Q48H for pain 12/08/2013 12/07/2013 Inactive Topamax 100 mg tablet RxNorm: 102200 1 Tablet(s) PO QHS 12/04/2013 Inactive Endocet 10 mg-325 mg tablet RxNorm: 5097373 1-2 Tablet(s) PO Q4H 12/26/2013 Inactive PRN PAIN Robaxin 750 mg tablet RxNorm: 303635 2 Tablet(s) PO TID as need ed for spasm 11/07/2013 01/05/2014 Inactive gabapentin 800 mg tablet RxNorm: 087992 1 Tablet(s) PO QD 10/16/2013 04/24/2014 Inactive TAKE ONE TABLET BY MOUTH EVERY DAY Symbicort 160 mcg-4.5 mcg/actuation HFA aerosol inhaler RxNo rm: 2105748 2 Puff(s) INH BID 10/16/2013 04/24/2014 Inactive INHALE 2 PUFFS O RALLY TWO TIMES A DAY Premarin 0.9 mg tablet RxNorm: 328004 1 Tablet(s) PO QD 10/16/2013 Inactive TAKE ONE TABLET BY MOUTH EVERY DAY metformin ER 500 mg tablet,extended release 24 hr RxNorm: 86 0975 1 Tablet(s) PO QD 10/16/2013 04/24/2014 Inactive TAKE ONE TABLET BY MOUTH EVERY DAY Daliresp 500 mcg tablet RxNorm: 4039251 1 Tablet(s) PO QD 10/16/2013 04/24/2014 Inactive Robaxin 750 mg tablet RxNorm: 800576 2 Tablet(s) PO TID as need ed for spasm 10/10/2013 11/06/2013 Inactive Duragesic 100 mcg/hr transdermal patch RxNorm: 059247 2 Application TD Q48H for pain 10/09/2013 No Stop Date Active Soma 350 mg tablet RxNorm: 202237 1 Tablet(s) PO TID 09/27/201310/09 Inactive TAKE ONE TABLET BY MOUTH THREE TIMES A D AY lactulose 10 gram/15 mL oral solution RxNorm: 584118 [address](s) PO QD 09/13/2013 03/07/2015 Inactive TAKE 1 TABLESPOON BY MOUTH ONCE DAILY Duragesic 100 mcg/hr transdermal patch RxNorm: 384868 2 Application TD Q48H for pain 09/06/2013 No Stop Date Active Endocet 10 mg-325 mg tablet RxNorm: 2426033 1-2 Tablet(s) PO Q4H 09/27/2013 Inactive PRN PAIN lancets 28 gauge RxNorm: Miscellaneous As needed for blo od glucose sticks 08/24/2013 No Stop Date Active 16.2 mg-0.1037 mg-0.0194 mg tablet RxNorm: 2620478 Tablet(s) PO PRN for gas and cramping 08/24/2013 01/19/2017 Inactive TAKE TWO TABLET S BY MOUTH THREE TIMES A DAY NEEDED FOR GAS AND CRAMPING Topamax 100 mg tablet RxNorm: 600121 1 Tablet(s) PO QHS 07/31/2013 Inactive Diflucan 100 mg tablet RxNorm: 748918 1 Tablet(s) PO QD 07/27/2013 Inactive cefdinir 300 mg capsule RxNorm: 684281 1 Capsule(s) PO BID 07/26/20 13 08/08/2013 Inactive Daliresp 500 mcg tablet RxNorm: 3332831 1 Tablet(s) PO QD 07/25/2013 10/15/2013 Inactive fluoxetine 40 mg capsule RxNorm: 024668 1 Capsule(s) PO QD 07/25/20 13 01/22/2014 Inactive TAKE ONE CAPSULE BY MOUTH EV JANKI MORNING Senokot-S 8.6 mg-50 mg tablet RxNorm: 5901691 1 Tablet(s) PO BID 10/25/2013 Inactive doxycycline hyclate 100 mg capsule RxNorm: 5313037 1 Capsule(s) PO BID 06/28/2013 07/07/2013 Inactive prednisone 20 mg tablet RxNorm: 280466 1 Tablet(s) PO BID 06/28/2013 07/04/2013 Inactive Zofran 4 mg tablet RxNorm: 583397 1 Tablet(s) PO Q4H prn nausea 03/201307/05/2013 Inactive Spiriva with HandiHaler 18 mcg & inhalation capsules RxNorm: 649489 1 Capsule(s) INH QD 06/26/2013 12/18/2013 Inactive INHALE CONTENTS OF 1 CAPSULE(S) WITH HANDIHALER ONCE DAILY Synthroid 112 mcg tablet RxNorm: 943731 1 Tablet(s) PO QD TAKE ONE TABLET BY MOUTH EVERY DAY 06/19/2013 02/15/2014 Inactive fluoxetine 20 mg capsule RxNorm: 495209 1 Capsule(s) PO QD 06/19/20 13 12/18/2013 Inactive Ventolin HFA 90 mcg/actuation Aerosol Inhaler RxNorm: 7537842 2 Puff(s) INH Q4H 06/05/2013 No Stop Date Active prn Soma 350 mg tablet RxNorm: 762795 1 Tablet(s) PO TID 06/05/201307/04 Inactive TAKE ONE TABLET BY MOUTH THREE TIMES A D AY prednisone 20 mg tablet RxNorm: 100799 1 Tablet(s) PO QD 05/31/2013 0 06/06/2013 Inactive Topamax 100 mg tablet RxNorm: 083756 1 Tablet(s) PO QHS 05/22/2013 Inactive Levaquin 500 mg tablet RxNorm: 704939 1 Tablet(s) PO QD 05/03/2013 Inactive Diflucan 100 mg tablet RxNorm: 197819 1 Tablet(s) PO QD 05/03/2013 Inactive Daliresp 500 mcg tablet RxNorm: 5597395 1 Tablet(s) PO QD 05/01/2013 07/24/2013 Inactive Daliresp 500 mcg tablet RxNorm: 1556197 1 Tablet(s) PO QD 05/01/2013 04/30/2013 Inactive gabapentin 800 mg tablet RxNorm: 473476 1 Tablet(s) PO QD 04/10/2013 10/06/2013 Inactive TAKE ONE TABLET BY MOUTH EVERY DAY metformin ER 500 mg tablet,extended release 24 hr RxNorm: 86 0977 1 Tablet(s) PO QD 04/10/2013 10/06/2013 Inactive TAKE ONE TABLET BY MOUTH EVERY DAY Premarin 0.9 mg tablet RxNorm: 921518 1 Tablet(s) PO QD 04/10/2013 Inactive TAKE ONE TABLET BY MOUTH EVERY DAY Symbicort 160 mcg-4.5 mcg/actuation HFA aerosol inhaler RxNo rm: 8327655 2 Puff(s) INH BID 04/10/2013 10/06/2013 Inactive INHALE 2 PUFFS O RALLY TWO TIMES A DAY Synthroid 112 mcg tablet RxNorm: 434199 1 Tablet(s) PO QD TAKE ONE TABLET BY MOUTH EVERY DAY 04/10/2013 06/18/2013 Inactive Ventolin HFA 90 mcg/actuation Aerosol Inhaler RxNorm: 2011402 2 Puff(s) INH Q4H 04/10/2013 No Stop Date Active prn fentanyl 100 mcg/hr transdermal patch RxNorm: 414676 1 Unit Dos e TD QD 04/03/2013 05/02/2013 Inactive Endocet 10 mg-325 mg tablet RxNorm: 4451545 1-2 Tablet(s) PO Q4H 05/02/2013 Inactive PRN PAIN Topamax 100 mg tablet RxNorm: 342697 1 Tablet(s) PO QHS 03/13/2013 Inactive Reglan 10 mg tablet RxNorm: 510424 1 Tablet(s) PO QID b efore meals and at bedtime 03/13/2013 04/09/2015 Inactive fluoxetine 20 mg capsule RxNorm: 548179 1 Capsule(s) PO QD 02/28/20 13 05/27/2013 Inactive Ventolin HFA 90 mcg/actuation Aerosol Inhaler RxNorm: 9303576 2 Puff(s) INH Q4H 02/13/2013 No Stop Date Active prn fluoxetine 40 mg capsule RxNorm: 890923 1 Capsule(s) PO QD 01/31/20 13 07/24/2013 Inactive TAKE ONE CAPSULE BY MOUTH EV JANKI MORNING Soma 350 mg tablet RxNorm: 693822 1 Tablet(s) PO TID 01/20/201302/18 Inactive TAKE ONE TABLET BY MOUTH THREE TIMES A D AY Endocet 10 mg-325 mg tablet RxNorm: 9257179 1-2 Tablet(s) PO Q4H 02/06/2013 Inactive PRN PAIN MS Contin 200 mg tablet,extended release RxNorm: 910621 1 Table t(s) PO BID 01/18/2013 02/06/2013 Inactive Ventolin HFA 90 mcg/actuation Aerosol Inhaler RxNorm: 3009228 2 Puff(s) INH Q4H 01/04/2013 No Stop Date Active prn Spiriva with HandiHaler 18 mcg & inhalation capsules RxNorm: 094341 1 Capsule(s) INH QD 12/29/2012 06/25/2013 Inactive INHALE CONTENTS OF 1 CAPSULE(S) WITH HANDIHALER ONCE DAILY Spiriva with HandiHaler 18 mcg & inhalation capsules RxNorm: 140119 1 Capsule(s) INH QD 12/26/2012 12/28/2012 Inactive INHALE CONTENTS OF 1 CAPSULE(S) WITH HANDIHALER ONCE DAILY Synthroid 112 mcg tablet RxNorm: 845909 Tablet(s) PO TA KE ONE TABLET BY MOUTH EVERY DAY 12/26/2012 04/09/2013 Inactive Endocet 10 mg-325 mg tablet RxNorm: 5449798 1-2 Tablet(s) PO Q4H 01/17/2013 Inactive PRN PAIN MS Contin 200 mg tablet,extended release RxNorm: 524908 1 Table t(s) PO BID 12/21/2012 01/17/2013 Inactive fluoxetine 20 mg capsule RxNorm: 515500 1 Capsule(s) PO QD 12/06/19 13 02/26/2013 Inactive Synthroid 112 mcg tablet RxNorm: 792184 1 Tablet(s) PO QD 12/06/2012 02/12/2019 Inactive TAKE ONE TABLET BY MOUTH EVERY DAY Ventolin HFA 90 mcg/actuation Aerosol Inhaler RxNorm: 6693185 2 Puff(s) INH Q4H 12/06/2012 No Stop Date Active prn Reglan 10 mg tablet RxNorm: 654172 1 Tablet(s) PO QID b efore meals and at bedtime 11/24/2012 03/12/2013 Inactive Topamax 100 mg tablet RxNorm: 166753 1 Tablet(s) PO QHS 11/16/2012 Inactive Ventolin HFA 90 mcg/actuation Aerosol Inhaler RxNorm: 5980149 2 Puff(s) INH Q4H 11/09/2012 No Stop Date Active prn gabapentin 800 mg tablet RxNorm: 092944 1 Tablet(s) PO QD 10/27/2012 04/09/2013 Inactive TAKE ONE TABLET BY MOUTH EVERY DAY metformin ER 500 mg tablet,extended release 24 hr RxNorm: 86 0977 1 Tablet(s) PO QD 10/27/2012 04/09/2013 Inactive TAKE ONE TABLET BY MOUTH EVERY DAY Symbicort 160 mcg-4.5 mcg/actuation HFA Aerosol Inhaler RxNo rm: 2233767 2 Puff(s) INH BID 10/27/2012 04/09/2013 Inactive INHALE 2 PUFFS O RALLY TWO TIMES A DAY Premarin 0.9 mg tablet RxNorm: 162195 1 Tablet(s) PO QD 10/27/2012 Inactive TAKE ONE TABLET BY MOUTH EVERY DAY Endocet 10 mg-325 mg tablet RxNorm: 4545690 1-2 Tablet(s) PO Q4H 11/24/2012 Inactive PRN PAIN MS Contin 200 mg tablet,extended release RxNorm: 125103 1 Table t(s) PO BID 10/26/2012 11/24/2012 Inactive Soma 350 mg tablet RxNorm: 049634 1 Tablet(s) PO TID 10/04/201211/02 Inactive TAKE ONE TABLET BY MOUTH THREE TIMES A D AY Ventolin HFA 90 mcg/actuation Aerosol Inhaler RxNorm: 4390110 2 Puff(s) INH Q4H 10/03/2012 No Stop Date Active prn Daliresp 500 mcg tablet RxNorm: 0648610 1 Tablet(s) PO QD 09/28/2012 09/27/2012 Inactive Daliresp 500 mcg tablet RxNorm: 0606445 1 Tablet(s) PO QD 09/28/2012 04/25/2013 Inactive fluoxetine 20 mg capsule RxNorm: 453644 1 Capsule(s) PO QD 09/05/2012/06/2012 Inactive Topamax 50 mg tablet RxNorm: 786071 Tablet(s) PO for 1w k then 1 po q HS for 1wk then 2 po q HS 08/29/2012 09/27/2012 Inactive TAKE 1/2 TABLET BY MOUTH AT BEDTIME FOR 1 WEEK, THEN 1 TABLET AT BEDTIME FOR 1 WEEK, THEN 2 TABLETS AT BEDTIME Topamax 100 mg tablet RxNorm: 165179 1 Tablet(s) PO QHS 08/29/2012 Inactive Ventolin HFA 90 mcg/actuation Aerosol Inhaler RxNorm: 3333712 2 Puff(s) INH Q4H 08/19/2012 No Stop Date Active prn Ventolin HFA 90 mcg/actuation Aerosol Inhaler RxNorm: 6980050 2 Puff(s) INH Q4H 08/15/2012 No Stop Date Active prn Synthroid 112 mcg tablet RxNorm: 850961 1 Tablet(s) PO QD 08/10/2012 11/07/2012 Inactive TAKE ONE TABLET BY MOUTH EVERY DAY Synthroid 112 mcg tablet RxNorm: 572361 1 Tablet(s) PO QD 08/01/2012 08/09/2012 Inactive TAKE ONE TABLET BY MOUTH EVERY DAY Reglan 10 mg tablet RxNorm: 695715 1 Tablet(s) PO QID b efore meals and at bedtime 08/01/2012 11/23/2012 Inactive fluoxetine 40 mg capsule RxNorm: 305914 1 Capsule(s) PO QD 08/01/20 12 01/27/2013 Inactive TAKE ONE CAPSULE BY MOUTH EV JANKI MORNING Ventolin HFA 90 mcg/actuation Aerosol Inhaler RxNorm: 8155351 2 Puff(s) INH Q4H 08/01/2012 No Stop Date Active prn Soma 350 mg tablet RxNorm: 205302 1 Tablet(s) PO TID 07/20/201208/18 Inactive TAKE ONE TABLET BY MOUTH THREE TIMES A D AY Spiriva with HandiHaler 18 mcg & inhalation capsules RxNorm: 088474 1 Capsule(s) INH 07/01/2012 12/25/2012 Inactive INHALE CONTENTS OF 1 CAPSULE(S) WITH HANDIHALER ONCE DAILY Zithromax 250 mg Tab RxNorm: 978887 2 Tablet(s) PO QD 06/28/201206/22 Inactive MS Contin 200 mg tablet,extended release RxNorm: 178942 1 Table t(s) PO BID 06/28/2012 07/27/2012 Inactive Endocet 10 mg-325 mg tablet RxNorm: 6165312 1-2 Tablet(s) PO Q4H 07/27/2012 Inactive PRN PAIN Topamax 100 mg tablet RxNorm: 178151 1 Tablet(s) PO QHS 06/28/2012 Inactive 16.2 mg-0.1037 mg-0.0194 mg tablet RxNorm: 4239069 Tablet(s) PO PRN for gas and cramping 06/08/2012 08/23/2013 Inactive TAKE TWO TABLET S BY MOUTH THREE TIMES A DAY NEEDED FOR GAS AND CRAMPING Ventolin HFA 90 mcg/actuation Aerosol Inhaler RxNorm: 9053437 2 Puff(s) INH Q4H 05/23/2012 No Stop Date Active prn Ventolin HFA 90 mcg/actuation Aerosol Inhaler RxNorm: 8843844 2 Puff(s) INH Q4H 05/11/2012 No Stop Date Active prn Synthroid 112 mcg tablet RxNorm: 025592 1 Tablet(s) PO QD 05/09/2012 07/31/2012 Inactive TAKE ONE TABLET BY MOUTH EVERY DAY gabapentin 800 mg tablet RxNorm: 234904 1 Tablet(s) PO QD 05/09/2012 10/26/2012 Inactive TAKE ONE TABLET BY MOUTH EVERY DAY fluoxetine 40 mg capsule RxNorm: 838985 1 Capsule(s) PO QD 05/09/2007/31/2012 Inactive TAKE ONE CAPSULE BY MOUTH EV JANKI MORNING metformin ER 500 mg tablet,extended release 24 hr RxNorm: 86 0977 1 Tablet(s) PO QD 05/09/2012 10/26/2012 Inactive TAKE ONE TABLET BY MOUTH EVERY DAY Premarin 0.9 mg tablet RxNorm: 896279 1 Tablet(s) PO QD 05/09/2012 Inactive TAKE ONE TABLET BY MOUTH EVERY DAY Symbicort 160 mcg-4.5 mcg/actuation HFA Aerosol Inhaler RxNo rm: 9617184 2 Puff(s) INH BID 05/09/2012 10/26/2012 Inactive INHALE 2 PUFFS O RALLY TWO TIMES A DAY Endocet 10 mg-325 mg Tab RxNorm: 4032323 1-2 Tablet(s) PO Q4H 04/2705/26/2012 Inactive PRN PAIN MS Contin 200 mg Tab RxNorm: 864553 1 Tablet(s) PO BID 04/26/201202/2012 Inactive Ventolin HFA 90 mcg/actuation Aerosol Inhaler RxNorm: 2324772 2 Puff(s) INH Q4H 04/25/2012 05/10/2012 Inactive prn Soma 350 mg tablet RxNorm: 349969 2 Tablet(s) PO TID 04/19/201207/19 Inactive TAKE ONE TABLET BY MOUTH THREE TIMES A D AY Ventolin HFA 90 mcg/actuation Aerosol Inhaler RxNorm: 5524654 2 Puff(s) INH Q4H 04/12/2012 04/24/2012 Inactive prn Reglan 10 mg tablet RxNorm: 840893 1 Tablet(s) PO QID b efore meals and at bedtime 04/11/2012 07/31/2012 Inactive MS Contin 200 mg Tab RxNorm: 617839 1 Tablet(s) PO BID 03/30/201202/2012 Inactive Endocet 10 mg-325 mg Tab RxNorm: 4839729 1-2 Tablet(s) PO Q4H 03/3004/26/2012 Inactive PRN PAIN MS Contin 200 mg Tab RxNorm: 549863 1 Tablet(s) PO BID 03/02/201206/2012 Inactive Endocet 10 mg-325 mg Tab RxNorm: 3084919 1-2 Tablet(s) PO Q4H 03/0203/29/2012 Inactive PRN PAIN Daliresp 500 mcg tablet RxNorm: 7219758 1 Tablet(s) PO QD 03/01/2012 09/28/2012 Inactive MS Contin 200 mg Tab RxNorm: 272137 1 Tablet(s) PO BID 02/02/201208/2012 Inactive Endocet 10 mg-325 mg Tab RxNorm: 6357212 1-2 Tablet(s) PO Q4H 02/0103/01/2012 Inactive PRN PAIN fluoxetine 40 mg capsule RxNorm: 581700 1 Capsule(s) PO QD 02/02/2008/01/2012 Inactive TAKE ONE CAPSULE BY MOUTH EV JANKI MORNING Synthroid 112 mcg Tab RxNorm: 766824 1 Tablet(s) PO QD 01/18/2012 Inactive TAKE ONE TABLET BY MOUTH EVERY DAY lactulose 10 gram/15 mL oral solution RxNorm: 503258 [address]s) PO QD 01/18/2012 No Stop Date Active TAKE 1 TABLESPOON BY MOUTH ONCE DAILY Ventolin HFA 90 mcg/actuation Aerosol Inhaler RxNorm: 6456548 2 Puff(s) INH Q4H 01/18/2012 04/11/2012 Inactive prn MS Contin 200 mg Tab RxNorm: 100833 1 Tablet(s) PO BID 01/05/201210/2012 Inactive Endocet 10 mg-325 mg Tab RxNorm: 2394872 1-2 Tablet(s) PO Q4H 01/0502/01/2012 Inactive PRN PAIN ProAir HFA 90 mcg/Actuation Aerosol Inhaler RxNorm: 8791938 2 Pu ff(s) INH Q4H 12/21/2011 No Stop Date Active prn for wheezing or shortness of breath Spiriva with HandiHaler 18 mcg & inhalation Caps RxNorm: 580 261 1 Capsule(s) INH 12/21/2011 06/30/2012 Inactive INHALE CONTENTS OF 1 CAPSULE(S) WITH HANDIHALER ONCE DAILY Reglan 10 mg Tab RxNorm: 168038 1 Tablet(s) PO QID before meals and at bedtime 12/21/2011 04/10/2012 Inactive Synthroid 112 mcg Tab RxNorm: 892427 1 Tablet(s) PO QD 12/21/2011 Inactive TAKE ONE TABLET BY MOUTH EVERY DAY Endocet 10 mg-325 mg Tab RxNorm: 0641182 1-2 Tablet(s) PO Q4H 11/2512/24/2011 Inactive PRN PAIN MS Contin 200 mg Tab RxNorm: 700370 1 Tablet(s) PO BID 11/25/201112/2011 Inactive lactulose 10 gram/15 mL Oral Soln RxNorm: 208260 Milliliter(s) PO 1 No Stop Date Active TAKE 1 TABLESPOON BY MOUTH O NCE DAILY lactulose 10 gram/15 mL Oral Soln RxNorm: 959785 Milliliter(s) PO 1 12/12/2010 11/20/2011 Inactive TAKE 1 TABLESPOON BY MOUTH O NCE DAILY Premarin 0.9 mg Tab RxNorm: 544576 1 Tablet(s) PO QD 10/12/201105/08 Inactive TAKE ONE TABLET BY MOUTH EVERY DAY fluoxetine 20 mg capsule RxNorm: 557828 1 Capsule(s) PO QD 10/12/20 11 09/05/2012 Inactive TAKE ONE CAPSULE BY MOUTH EV JANKI DAY Synthroid 112 mcg Tab RxNorm: 934470 1 Tablet(s) PO QD 10/12/2011 Inactive TAKE ONE TABLET BY MOUTH EVERY DAY metformin ER 500 mg 24 hr Tab RxNorm: 181688 1 Tablet(s) PO QD 09/2311/10/2011 Inactive TAKE ONE TABLET BY MOUTH GLYNN RY DAY Synthroid 112 mcg Tab RxNorm: 158405 1 Tablet(s) PO QD 10/12/2011 Inactive TAKE ONE TABLET BY MOUTH EVERY DAY metformin ER 500 mg 24 hr Tab RxNorm: 069439 1 Tablet(s) PO QD 09/2310/11/2011 Inactive TAKE ONE TABLET BY MOUTH GLYNN RY DAY Prevacid 30 mg Cap RxNorm: 382312 Capsule(s) PO 10/12/2011 01/25/2012 Inactive TAKE ONE CAPSULE BY MOUTH EVERY DAY Symbicort 160 mcg-4.5 mcg/actuation HFA Aerosol Inhaler RxNo rm: 2496887 2 Puff(s) INH BID 10/12/2011 05/08/2012 Inactive INHALE 2 PUFFS O RALLY TWO TIMES A DAY gabapentin 800 mg Tab RxNorm: 774007 1 Tablet(s) PO QD 10/12/2011 Inactive TAKE ONE TABLET BY MOUTH EVERY DAY MS Contin 200 mg Tab RxNorm: 821358 1 Tablet(s) PO BID 09/23/201111/2010 Inactive Endocet 10 mg-325 mg Tab RxNorm: 7822850 1-2 Tablet(s) PO Q4H 09/2310/22/2011 Inactive PRN PAIN Endocet 10 mg-325 mg Tab RxNorm: 3077626 1-2 Tablet(s) PO Q4H 08/2109/19/2011 Inactive PRN PAIN MS Contin 200 mg Tab RxNorm: 221000 1 Tablet(s) PO BID 08/21/2011 Inactive Diflucan 100 mg Tab RxNorm: 808992 1 Tablet(s) PO QD 08/10/201108/16 Inactive cefdinir 300 mg Cap RxNorm: 070772 2 Capsule(s) PO QD 08/10/201107/24 Inactive Reglan 10 mg Tab RxNorm: 206944 1 Tablet(s) PO AC & HS 07/15/2011 Inactive Endocet 10 mg-325 mg Tab RxNorm: 5827271 1-2 Tablet(s) PO Q4H 07/1508/13/2011 Inactive PRN PAIN One Touch Ultra Test strips RxNorm: Miscellaneous BID 06/11/2011 1 01/16/2014 Inactive TEST TWO TIMES A DAY lactulose 10 gram/15 mL Oral Soln RxNorm: 023149 Milliliter(s) PO 0 06/10/2011 10/11/2011 Inactive TAKE 1 TABLESPOON BY MOUTH O NCE DAILY Chantix Continuing Month Aníbal 1 mg Tab RxNorm: 316915 Tablet(s) PO 0 06/10/2011 11/02/2011 Inactive TAKE DIRECTED - PER PACKA GE INSTRUCTIONS fluoxetine 40 mg Cap RxNorm: 879919 Capsule(s) PO 06/10/2011 02/02/20 12 Inactive TAKE ONE CAPSULE BY MOUTH EVERY MORNING Chantix Continuing Month Aníbal 1 mg Tab RxNorm: 674261 Ta blet(s) PO TAKE DIRECTED - PER PACKAGE INSTRUCTIONS 05/13/2011 06/09/2011 Inactive Soma 350 mg Tab RxNorm: 318252 Tablet(s) PO TAKE ON E TABLET BY MOUTH THREE TIMES A DAY 05/13/2011 04/18/2012 Inactive Chantix Continuing Month Aníbal 1 mg Tab RxNorm: 356192 Ta blet(s) PO as directed per package instructions. 04/22/2011 05/12/2011 Inactive Symbicort 160 mcg-4.5 mcg/Actuation HFA Aerosol Inhaler RxNo rm: 1864647 HFA Aerosol Inhaler INH INHALE 2 PUFFS ORALLY TWO TIMES A DAY 04/13/2011 Inactive Synthroid 112 mcg Tab RxNorm: 931519 Tablet(s) PO TAKE ONE TABLET BY MOUTH EVERY DAY 04/13/2011 10/12/2011 Inactive Premarin 0.9 mg Tab RxNorm: 398234 Tablet(s) PO TAKE ON E TABLET BY MOUTH EVERY DAY 04/13/2011 10/12/2011 Inactive gabapentin 800 mg Tab RxNorm: 016790 Tablet(s) PO TAKE ONE TABLET BY MOUTH EVERY DAY 04/13/2011 10/12/2011 Inactive Prevacid 30 mg Cap RxNorm: 277978 1 Capsule(s) PO QD 04/13/201110/11 Inactive Spiriva with HandiHaler 18 mcg & inhalation Caps RxNorm: 580 261 Capsule(s) INH INHALE CONTENTS OF 1 CAPSULE(S) WITH HANDIHALER ONCE DAILY 04/13/2011 12/21/2011 Inactive metformin ER 500 mg 24 hr Tab RxNorm: 919780 Tablet(s) PO TAKE ONE TABLET BY MOUTH EVERY DAY 04/13/2011 10/12/2011 Inactive Soma 350 mg Tab RxNorm: 420679 1 Tablet(s) PO QID 03/30/2011 02/13/20 19 Inactive fluoxetine 20 mg Cap RxNorm: 891484 Capsule(s) PO TAKE ONE CAPSULE BY MOUTH EVERY DAY 03/25/2011 10/12/2011 Inactive cefdinir 300 mg Cap RxNorm: 483229 2 Capsule(s) PO QD 03/19/201105/2011 Inactive 16.2 mg-0.1037 mg-0.0194 mg Tab RxNorm: 6503864 2 Tablet(s) PO TID PRN for gas and cramping 03/16/2011 07/13/2011 Inactive Soma 350 mg Tab RxNorm: 626655 2 Tablet(s) PO TID 03/16/2011 03/29/20 11 Inactive Chantix Starting Month Aníbal 0.5 mg (11)-1 mg (3x14) Tab s in a Dose Pack RxNorm: 521088 Tablet(s) PO as directed 03/02/2011 No Stop Date Active diazepam 10 mg Tab RxNorm: 444865 1 Tablet(s) PO BID 02/10/201101/19 Inactive Zofran 4 mg tablet RxNorm: 871898 1 Tablet(s) PO Q4H prn nausea 02/16/2011 Inactive Diflucan 100 mg Tab RxNorm: 512876 1 Tablet(s) PO QD 01/18/201101/24 Inactive Premarin 0.625 mg/g Vaginal Cream RxNorm: 820851 VAG In sert 1gm vaginally at bedtime 3 times weekly 01/18/2011 02/12/2019 Inactive loratadine 10 mg Tab RxNorm: 658993 1 Tablet(s) PO QD 12/17/201003/2012 Inactive Spiriva with HandiHaler 18 mcg & inhalation Caps RxNorm: 580 261 1 Capsule(s) INH QD 12/17/2010 04/12/2011 Inactive Diflucan 100 mg Tab RxNorm: 737599 1 Tablet(s) PO QD 12/17/201012/23 Inactive diazepam 10 mg Tab RxNorm: 667649 1 Tablet(s) PO BID and PRN 201002/12/2019 Inactive One Touch Ultra Test Strips RxNorm: InVt BID Zainab t blood sugar at least twice daily. 11/11/2010 06/11/2011 Inactive fluoxetine 40 mg Cap RxNorm: 412403 1 Capsule(s) PO QAM 11/11/2010 Inactive diazepam 10 mg Tab RxNorm: 105843 1 Tablet(s) PO BID and PRN 200911/12/2010 Inactive Bactrim DS 800 mg-160 mg Tab RxNorm: 985418 1 Tablet(s) PO BID 09/2210/15/2010 Inactive fluoxetine 20 mg Cap RxNorm: 493675 1 Capsule(s) PO QD 10/02/201008/2011 Inactive Bactrim DS 800 mg-160 mg Tab RxNorm: 467887 1 Tablet(s) PO BID 01/201010/03/2010 Inactive Zofran 4 mg Tab RxNorm: 681988 1 Tablet(s) PO Q4H prn nausea 200910/16/2010 Inactive 16.2 mg-0.1037 mg-0.0194 mg Tab RxNorm: 5644455 2 Tablet(s) PO TID PRN for gas and cramping 09/17/2010 10/21/2010 Inactive Gabapentin 800 mg Tab RxNorm: 879609 1 Tablet(s) PO QD 09/16/2010 Inactive ProAir HFA 90 mcg/Actuation Aerosol Inhaler RxNorm: 6303423 2 Puff(s) INH Q4H prn shortness of breath 09/15/2010 12/13/2010 Inactive gabapentin 800 mg Tab RxNorm: 144461 1 Tablet(s) PO QD 09/15/2010 Inactive Prevacid 30 mg Cap RxNorm: 238529 1 Capsule(s) PO QD 09/15/201004/12 Inactive loratadine 10 mg Tab RxNorm: 880053 1 Tablet(s) PO QD 09/15/201011/23 Inactive Premarin 0.9 mg Tab RxNorm: 828495 1 Tablet(s) PO QD 09/15/201004/12 Inactive Synthroid 112 mcg Tab RxNorm: 840551 1 Tablet(s) PO QD 09/15/2010 Inactive metformin ER 500 mg 24 hr Tab RxNorm: 218436 1 Tablet(s) PO QD 08/2304/12/2011 Inactive Symbicort 160 mcg-4.5 mcg/Actuation Inhalation HFA Aer osol Inhaler RxNorm: 7295899 2 Puff(s) INH BID 09/15/2010 04/12/2011 Inactive diazepam 10 mg Tab RxNorm: 804656 1 Tablet(s) PO BID and PRN 200910/13/2010 Inactive Phentermine 37.5 mg Cap RxNorm: 833957 1 Capsule(s) PO QD 09/02/2010 11/02/2011 Inactive ProAir HFA 90 mcg/Actuation Aerosol Inhaler RxNorm: 9084699 2 Puff(s) INH Q4H prn shortness of breath 08/07/2010 No Stop Date Active Premarin 0.9 mg Tab RxNorm: 344358 1 Tablet(s) PO QD 08/07/201009/14 Inactive Loratadine 10 mg Tab RxNorm: 688022 1 Tablet(s) PO QD 08/07/201008/23 Inactive Lactulose 10 gram/15 mL Oral Soln RxNorm: 782601 1 Unit Dose PO QD 08/07/2010 02/12/2019 Inactive Zofran 4 mg Tab RxNorm: 073841 1 Tablet(s) PO Q4H prn nausea 2009 No Stop Date Active Gabapentin 800 mg Tab RxNorm: 089253 1 Tablet(s) PO QD 08/07/2010 Inactive Synthroid 112 mcg Tab RxNorm: 476758 1 Tablet(s) PO QD 08/07/2010 Inactive Metformin ER 500 mg 24 hr Tab RxNorm: 523839 1 Tablet(s) PO QD 07/2309/14/2010 Inactive Vitamin D 1,000 unit Tab RxNorm: 518106 1 Tablet(s) PO TID 08/07/2002/12/2019 Inactive Symbicort 160 mcg-4.5 mcg/Actuation Inhalation HFA Aer osol Inhaler RxNorm: 4658271 2 Puff(s) INH BID 08/07/2010 09/14/2010 Inactive Prevacid 30 mg Cap RxNorm: 775397 1 Capsule(s) PO QD 08/07/201009/14 Inactive Metformin ER 500 mg 24 hr Tab RxNorm: 637437 1 Tablet(s) PO QD 06/2308/06/2010 Inactive Vitamin D 1,000 unit Tab RxNorm: 474732 1 Tablet(s) PO TID 07/14/2008/06/2010 Inactive Synthroid 112 mcg Tab RxNorm: 118925 1 Tablet(s) PO QD 07/14/2010 Inactive Lactulose 10 gram/15 mL Oral Soln RxNorm: 010564 1 Unit Dose PO QD 07/14/2010 08/06/2010 Inactive Levaquin 500 mg Tab RxNorm: 762099 1 Tablet(s) PO QD 07/14/201007/27 Inactive Premarin 0.9 mg Tab RxNorm: 583458 1 Tablet(s) PO QD 07/14/201008/06 Inactive ProAir HFA 90 mcg/Actuation Aerosol Inhaler RxNorm: 2897508 2 Puff(s) INH Q4H prn shortness of breath 07/14/2010 No Stop Date Active Prevacid 30 mg Cap RxNorm: 291534 1 Capsule(s) PO QD 07/14/201008/06 Inactive Zofran 4 mg Tab RxNorm: 086534 1 Tablet(s) PO Q4H prn nausea 2009 No Stop Date Active Symbicort 160 mcg-4.5 mcg/Actuation Inhalation HFA Aer osol Inhaler RxNorm: 8895355 2 Puff(s) INH BID 07/14/2010 08/06/2010 Inactive Loratadine 10 mg Tab RxNorm: 646399 1 Tablet(s) PO QD 07/14/201007/23 Inactive Gabapentin 800 mg Tab RxNorm: 616641 1 Tablet(s) PO QD 07/14/2010 Inactive Metformin ER 500 mg 24 hr Tab RxNorm: 742019 1 Tablet(s) PO 010 07/13/2010 Inactive Diazepam 10 mg Tab RxNorm: 885143 1 Tablet(s) PO BID and PRN 200909/06/2010 Inactive Premarin 0.9 mg Tab RxNorm: 000306 1 Tablet(s) PO QD 06/09/201007/13 Inactive Zofran 4 mg Tab RxNorm: 065032 1 Tablet(s) PO Q4H prn nausea 2009 No Stop Date Active ProAir HFA 90 mcg/Actuation Aerosol Inhaler RxNorm: 6007950 2 Puff(s) INH Q4H prn shortness of breath 06/09/2010 No Stop Date Active Gabapentin 800 mg Tab RxNorm: 318627 1 Tablet(s) PO QD 06/09/2010 Inactive Loratadine 10 mg Tab RxNorm: 626450 1 Tablet(s) PO QD 06/09/201006/23 Inactive Lactulose 10 gram/15 mL Oral Soln RxNorm: 373427 1 Unit Dose PO QD 06/09/2010 07/13/2010 Inactive Prevacid 30 mg Cap RxNorm: 038460 1 Capsule(s) PO QD 06/09/201007/13 Inactive Synthroid 112 mcg Tab RxNorm: 756335 1 Tablet(s) PO QD 06/09/2010 Inactive Symbicort 160 mcg-4.5 mcg/Actuation Inhalation HFA Aer osol Inhaler RxNorm: 7980778 2 Puff(s) INH BID 06/09/2010 07/13/2010 Inactive Omnicef 300 mg Cap RxNorm: 051733 2 Capsule(s) PO QD 05/07/201005/20 Inactive Metformin 500 mg Tab RxNorm: 649025 1 Tablet(s) PO QD 05/06/201005/22 Inactive ProAir HFA 90 mcg/Actuation Aerosol Inhaler RxNorm: 6561302 2 Puff(s) INH Q4H prn shortness of breath 05/06/2010 No Stop Date Active lactulose 10 gram/15 mL Oral Soln RxNorm: 996785 1 Unit Dose PO QD 05/06/2010 06/10/2011 Inactive Loratadine 10 mg Tab RxNorm: 088946 1 Tablet(s) PO QD 05/06/201005/22 Inactive Synthroid 112 mcg Tab RxNorm: 942318 1 Tablet(s) PO QD 05/06/2010 Inactive Symbicort 160 mcg-4.5 mcg/Actuation Inhalation HFA Aer osol Inhaler RxNorm: 2591403 2 Puff(s) INH BID 05/06/2010 06/08/2010 Inactive Gabapentin 800 mg Tab RxNorm: 363799 1 Tablet(s) PO QD 05/06/2010 Inactive 16.2 mg-0.1037 mg-0.0194 mg Tab RxNorm: 0516237 2 Tablet(s) PO TID PRN for gas and cramping 05/06/2010 05/12/2010 Inactive Zofran 4 mg Tab RxNorm: 509744 1 Tablet(s) PO Q4H prn nausea 200904/13/2010 Inactive MS Contin 60 mg Tab RxNorm: 396175 3 Tablet(s) PO BID 04/09/201004/22 Inactive Soma 350 mg Tab RxNorm: 474026 2 Tablet(s) PO TID 04/09/2010 05/08/20 Inactive Symbicort 160 mcg-4.5 mcg/Actuation Inhalation HFA Aer osol Inhaler RxNorm: 9356551 2 Puff(s) INH BID 04/08/2010 05/05/2010 Inactive Doxycycline 100 mg Cap RxNorm: 9372824 1 Capsule(s) PO BID 04/08/20 10 04/17/2010 Inactive Triamterene-Hydrochlorothiazide 37.5 mg-25 mg Cap RxNorm: 19 8316 1 Capsule(s) PO QAM 04/08/2010 09/04/2010 Inactive fluoxetine 40 mg Cap RxNorm: 609873 1 Capsule(s) PO QAM 04/08/2010 Inactive Morphine SR 120 mg multiphase 24 hr Cap RxNorm: 630251 1 Capsul e(s) PO 03/11/2010 04/07/2010 Inactive Endocet 10 mg-325 mg Tab RxNorm: 3791706 1-2 Tablet(s) PO Q4H MO N PAIN 03/11/2010 04/09/2010 Inactive Savella 100 mg Tab RxNorm: 239725 1 Tablet(s) PO BID 03/10/201004/09 Inactive Soma 350 mg Tab RxNorm: 247332 1 Tablet(s) PO TID prn spasm 010 04/09/2010 Inactive Savella 100 mg Tab RxNorm: 010005 1 Tablet(s) PO BID 02/03/201004/09 Inactive Aspirin 81 mg Tab RxNorm: 466029 1 Tablet(s) PO QD No Start Date Active Zyrtec 10 mg Tab RxNorm: 4315250 1 Tablet(s) PO QD No Start Date Active One Touch Ultra Test Strips RxNorm: Misc test at least t wice daily. No Start Date Active coenzyme Q10 200 mg capsule RxNorm: 953252 1 Capsule(s) PO QD No Star t Date Active One Touch Ultra Test Strips RxNorm: InVt BID Zainab t blood sugar at least twice daily. No Start Date 11/10/2010 Inactive Gabapentin 800 mg Tab RxNorm: 989701 1 Tablet(s) PO QD No Start Date 05/05/2010 Inactive Abilify 5 mg tablet RxNorm: 551848 1 Tablet(s) PO QD No Start Date Inactive Chantix 1 mg Tab RxNorm: 013709 1 Tablet(s) PO BID No Start Date 10/22 Inactive Ozempic 0.25 mg or 0.5 mg (2 mg/1.5 mL) subcutaneous p en injector RxNorm: 1691963 .25 Milligram(s) SQ QW No Start Date 07/04/2019 Inactive lancets 28 gauge RxNorm: Miscellaneous As needed for blo od glucose sticks No Start Date 08/23/2013 Inactive potassium chloride ER 20 mEq tablet,extended release RxNorm: 167247 2 Tablet(s) PO QD No Start Date 09/26/2018 Inactive Ventolin HFA 90 mcg/actuation Aerosol Inhaler RxNorm: 838172 1 2 Puff(s) INH Q4H prn No Start Date 01/17/2012 Inactive potassium chloride ER 20 mEq tablet,extended release RxNorm: 753028 2 Tablet(s) PO QD No Start Date 10/19/2018 Inactive Januvia 100 mg tablet RxNorm: 888850 1 Tablet(s) PO QD No Start Date 09/10/2015 Inactive Medrol (Aníbal) 4 mg Tabs in a Dose Pack RxNorm: 252047 Tablet(s) PO N o Start Date 08/09/2011 Inactive as directed Zithromax Z-Aníbal 250 mg Tab RxNorm: 756597 Tablet(s) PO No Start Date 01/25/2012 Inactive as directed vitamin B6-vitamin E-magnesium tablet RxNorm: 1 Tablet(s ) PO QHS with INH No Start Date 03/30/2018 Inactive prednisone 20 mg Tab RxNorm: 689048 1 Tablet(s) PO TID for 1wk then 1 po BID for 1wk No Start Date 01/25/2012 Inactive furosemide 40 mg tablet RxNorm: 827637 1 Tablet(s) PO QAM No Start Date 10/09/2018 Inactive Vitamin D3 1000 units Capsule RxNorm: 1 Capsule(s) PO TID No S tart Date 03/19/2015 Inactive Zofran 4 mg Tab RxNorm: 694255 1 Tablet(s) PO Q4H prn nausea No Sta rt Date 04/13/2010 Inactive Premarin 0.625 mg/g Vaginal Cream RxNorm: 375835 1 Gram (s) VAG QHS 3 times a week No Start Date 09/22/2017 Inactive oxycodone 10 mg tablet RxNorm: 7900060 1-2 Tablet(s) PO QID as n eeded for pain No Start Date 11/04/2015 Inactive Nicoderm CQ 21 mg/24 hr daily Patch RxNorm: 747329 1 Applicatio n TD QD No Start Date 08/05/2015 Inactive Topamax 50 mg tablet RxNorm: 844548 1/2 Tablet(s) PO QH S for 1wk then 1 po q HS for 1wk then 2 po q HS No Start Date 06/27/2012 Inactive Chantix Starting Month Aníbal 0.5 mg (11)-1 mg (3x14) Tab s in a Dose Pack RxNorm: 335799 Tablet(s) PO as directed No Start Date 03/01/2011 Inactive Trulicity 0.75 mg/0.5 mL subcutaneous pen injector RxNorm: 1 266950 Milliliter(s) SQ No Start Date 07/04/2019 Inactive Medrol (Aníbal) 4 mg Tabs in a Dose Pack RxNorm: 218263 Tablet(s) PO N o Start Date 01/25/2012 Inactive as directed Duragesic 100 mcg/hr Transderm Patch RxNorm: 280065 2 A pplication TD Q48H for pain No Start Date 09/05/2013 Inactive Premarin 0.9 mg Tab RxNorm: 998800 1 Tablet(s) PO QD No Start Date Inactive Zithromax Z-Aníbal 250 mg Tab RxNorm: 576779 Tablet(s) PO as direc chinmay No Start Date 01/25/2012 Inactive ondansetron 8 mg disintegrating tablet RxNorm: 673700 1 Tablet(s) PO Q6H as needed No Start Date 10/10/2018 Inactive oxycodone 15 mg tablet RxNorm: 8154986 1 Tablet(s) PO QID as nee ded for pain No Start Date 03/05/2019 Inactive ProAir HFA 90 mcg/Actuation Aerosol Inhaler RxNorm: 225488 2 Puff(s) INH Q4H prn for wheezing or shortness of breath No Start Date 12/21/2011 Inactive pravastatin 40 mg tablet RxNorm: 535903 1/2 Tablet(s) PO QOD No Sta rt Date 04/09/2015 Inactive ipratropium-albuterol 0.5 mg-3 mg(2.5 mg base)/3 mL ne bulization soln RxNorm: 8474529 1 Unit Dose INH Q4H as needed No Start Date 09/09/2016 Inactive furosemide 40 mg tablet RxNorm: 597176 1 Tablet(s) PO QAM as ne eded No Start Date 09/24/2019 Inactive Vitamin D2 oral RxNorm: 4018 oral No Start Date 03/18/2015 Inacti ve pravastatin 40 mg tablet RxNorm: 199101 1/2 Tablet(s) PO QD No Star t Date 04/09/2015 Inactive ondansetron HCl 4 mg tablet RxNorm: 296005 1 Tablet(s) PO Q4H as needed for nausea and vomiting No Start Date 04/07/2016 Inactive furosemide 40 mg tablet RxNorm: 324502 2 Tablet(s) PO QAM No Start Date 09/26/2018 Inactive gabapentin 800 mg tablet RxNorm: 375030 1/2 Tablet(s) PO BID No Sta rt Date 06/21/2017 Inactive gabapentin 800 mg tablet RxNorm: 751518 1/2 Tablet(s) PO BID No Sta rt Date 07/05/2017 Inactive ProAir HFA 90 mcg/Actuation Aerosol Inhaler RxNorm: 5471746 2 Puff(s) INH Q4H prn shortness of breath No Start Date 05/05/2010 Inactive scopolamine 1 mg over 3 days transdermal patch RxNorm: 38384 2 1 Application TD behind ear. Take off after three days No Start Date 10/10/2018 Inactive Metformin 500 mg Tab RxNorm: 930413 1 Tablet(s) PO QD No Start Date 0 05/05/2010 Inactive MS Contin 200 mg Tab RxNorm: 328149 1 Tablet(s) PO BID No Start Date 08/20/2011 Inactive Belladonna-Phenobarbital 48 mg tablet,extended release RxNor m: 2 Tablet(s) PO TID No Start Date 06/04/2016 Inactive Synthroid 112 mcg Tab RxNorm: 402810 1 Tablet(s) PO QD No Start Date 05/05/2010 Inactive Zegerid 40 mg-1.1 gram Cap RxNorm: 110630 1 Capsule(s) PO QD No Sta rt Date 01/25/2012 Inactive Premarin 0.625 mg/g Vaginal Cream RxNorm: 799456 VAG In sert 1gm vaginally at bedtime 3 times weekly No Start Date 01/17/2011 Inactive potassium chloride ER 20 mEq tablet,extended release RxNorm: 612551 1 Tablet(s) PO QD No Start Date 04/24/2019 Inactive methocarbamol 750 mg tablet RxNorm: 611106 2 Tablet(s) PO TID as needed for muscle spasm No Start Date 07/08/2014 Inactive Biaxin XL Aníbal 500 mg 24 hr Tab RxNorm: 974639 Tablet(s) PO as d irected No Start Date 04/24/2013 Inactive Vitamin D3 1,000 unit tablet RxNorm: 090278 3 Tablet(s) PO QD No St art Date 06/01/2017 Inactive Morphine SR 120 mg multiphase 24 hr Cap RxNorm: 753288 1 Capsul e(s) PO BID No Start Date 04/09/2010 Inactive Silvadene 1 % topical cream RxNorm: 722402 1 Application TOP BI D to burn area No Start Date 01/31/2017 Inactive Prednisone 20 mg Tab RxNorm: 058033 1 Tablet(s) PO TID for 3days then BID for 4days No Start Date 01/25/2012 Inactive gabapentin 600 mg tablet RxNorm: 348245 1 Tablet(s) PO BID No Start Date 01/21/2015 Inactive topiramate 50 mg tablet RxNorm: 636843 1 Tablet(s) PO QHS No Start Date 03/30/2018 Inactive Januvia 100 mg tablet RxNorm: 896340 1/2 Tablet(s) PO QD No Start D ate 12/25/2015 Inactive Diazepam 10 mg Tab RxNorm: 972962 1 Tablet(s) PO BID and PRN No Sta rt Date 06/08/2010 Inactive Medication Administered No Medication Administered data Immunizations Vaccine Codes Date Status Influenza CVX: 141 09/28/2012 Pneumovax Unknown 09/28/2012 Influenza (Adult) CVX: 141 09/02/2010 Results No Results data Procedures Procedure Codes Date THER/PROPH/DIAG INJ SC/IM CPT-4: 40813 07/10/2019 METHYLPREDNISOLONE INJECTION CPT-4: J2930 07/10/2019 URINALYSIS NONAUTO W/O SCOPE CPT-4: 59304 09/06/2018 URINE CULTURE/ COLONY COUNT CPT-4: 28211 09/06/2018 DRAIN/INJECT JOINT/BURSA CPT-4: 05692 04/29/2017 TRIAMCINOLONE ACET INJ NOS CPT-4: J3301 04/29/2017 DEXAMETHASONE SODIUM PHOS CPT-4: J1100 04/29/2017 INFLUENZA ASSAY W/OPTIC CPT-4: 45513 12/01/2016 RESPIRATORY CULTURE & STAIN CPT-4: 09010 07/09/2016 TB INTRADERMAL TEST CPT-4: 93105 04/21/2016 DRAIN/INJECT JOINT/BURSA CPT-4: 77623 11/07/2013 METHYLPREDNISOLONE 40 MG INJ CPT-4: J1030 11/07/2013 TRIAMCINOLONE ACET INJ NOS CPT-4: J3301 11/07/2013 DRAIN/INJECT JOINT/BURSA CPT-4: 89087 08/08/2013 METHYLPREDNISOLONE 40 MG INJ CPT-4: J1030 08/08/2013 TRIAMCINOLONE ACET INJ NOS CPT-4: J3301 08/08/2013 FLU VACCINE 3 YRS & > IM UP 64 CPT-4: 03260 2 PNEUMOCOCCAL VACC 23 ADITYA IM CPT-4: 24211 09/28/2012 IMMUNIZATION ADMIN CPT-4: 24787 09/28/2012 IMMUNIZATION ADMIN EACH ADD CPT-4: 53514 09/28/2012 FLU VACCINE 3 YRS & > IM UP 64 CPT-4: 81064 0 IMMUNIZATION ADMIN CPT-4: 25625 09/02/2010 METHYLPREDNISOLONE INJECTION CPT-4: J2930 05/07/2010 THER/PROPH/DIAG INJ SC/IM CPT-4: 70891 05/07/2010 Vital Signs Date Vital 11/29/2019 Blood [...] 1: 122/78 Code: 8480-6 BMI: 29.5 Code: 09979-4 Heart Rate 1: 76 bpm Height: 5'4" Respiratory Rate: 20 bpm SpO2: 96% Tempera ture: 37.0 (C) / 98.6 (F) Weight: 172 lbs 01/25/2019 Blood Pressure 1: 132/80 Code: 8480-6 BMI: 29.7 Code: 05179-5 Heart Rate 1: 84 bpm Height: 5'4" Respiratory Rate: 22 bpm SpO2: 98% Tempera ture: 36.9 (C) / 98.4 (F) Weight: 173 lbs 01/03/2019 Blood Pressure 1: 116/70 Code: 8480-6 BMI: 29.5 Code: 65474-6 Heart Rate 1: 92 bpm Height: 5'4" Respiratory Rate: 24 bpm SpO2: 98% Tempera ture: 37.2 (C) / 98.9 (F) Weight: 172 lbs 11/21/2018 Blood Pressure 1: 146/82 Code: 8480-6 BMI: 28.2 Code: 92448-1 Heart Rate 1: 88 bpm Height: 5'4" Respiratory Rate: 22 bpm SpO2: 97% Tempera ture: 36.9 (C) / 98.4 (F) Weight: 164 lbs 10/27/2018 Blood Pressure 1: 122/70 Code: 8480-6 BMI: 27.6 Code: 55825-5 Heart Rate 1: 88 bpm Height: 5'4" Respiratory Rate: 20 bpm SpO2: 96% Tempera ture: 36.8 (C) / 98.3 (F) Weight: 161 lbs 10/18/2018 Blood Pressure 1: 126/70 Code: 8480-6 BMI: 28.3 Code: 75897-8 Heart Rate 1: 76 bpm Height: 5'4" Respiratory Rate: 20 bpm SpO2: 95% Tempera ture: 37.0 (C) / 98.6 (F) Weight: 165 lbs 09/27/2018 Blood Pressure 1: 124/78 Code: 8480-6 BMI: 27.1 Code: 33980-8 Heart Rate 1: 88 bpm Height: 5'4" Respiratory Rate: 20 bpm SpO2: 98% Tempera ture: 36.4 (C) / 97.6 (F) Weight: 158 lbs 09/14/2018 Blood Pressure 1: 140/72 Code: 8480-6 BMI: 26.1 Code: 33235-3 Heart Rate 1: 100 bpm Height: 5'4" Respiratory Rate: 20 bpm SpO2: 97% Tempera ture: 36.9 (C) / 98.4 (F) Weight: 152 lbs 09/06/2018 Blood Pressure 1: 156/82 Code: 8480-6 BMI: 26.3 Code: 10990-5 Heart Rate 1: 100 bpm Height: 5'4" Respiratory Rate: 28 bpm SpO2: 95% Tempera ture: 37.2 (C) / 98.9 (F) Weight: 153 lbs 08/16/2018 Blood Pressure 1: 130/78 Code: 8480-6 Heart Rate 1: 87 bpm Respiratory Rate: 24 bpm SpO2: 94% Temperature: 36.9 (C) / 98.4 (F) We ight: 147 lbs 8 oz 07/07/2018 Blood Pressure 1: 116/78 Code: 8480-6 BMI: 22.7 Code: 96985-6 Heart Rate 1: 88 bpm Height: 5'4" Respiratory Rate: 22 bpm SpO2: 98% Tempera ture: 36.5 (C) / 97.7 (F) Weight: 132 lbs 05/31/2018 Blood Pressure 1: 128/78 Code: 8480-6 BMI: 22.3 Code: 31079-9 Heart Rate 1: 92 bpm Height: 5'4" Respiratory Rate: 26 bpm SpO2: 94% Tempera ture: 36.7 (C) / 98.1 (F) Weight: 130 lbs 03/31/2018 Blood Pressure 1: 136/78 Code: 8480-6 BMI: 21.5 Code: 94308-0 Heart Rate 1: 76 bpm Height: 5'4" Respiratory Rate: 24 bpm SpO2: 95% Tempera ture: 36.8 (C) / 98.3 (F) Weight: 125 lbs 01/26/2018 Blood Pressure 1: 142/64 Code: 8480-6 BMI: 20.6 Code: 90574-1 Heart Rate 1: 90 bpm Height: 5'4" Respiratory Rate: 24 bpm SpO2: 92% Tempera ture: 36.3 (C) / 97.3 (F) Weight: 120 lbs 10/26/2017 Blood Pressure 1: 124/70 Code: 8480-6 BMI: 20.3 Code: 87863-1 Heart Rate 1: 76 bpm Height: 5'4" Respiratory Rate: 22 bpm SpO2: 94% Tempera ture: 36.7 (C) / 98.1 (F) Weight: 118 lbs 09/23/2017 Blood Pressure 1: 106/70 Code: 8480-6 BMI: 19.2 Code: 85982-8 Heart Rate 1: 76 bpm Height: 5'4" Respiratory Rate: 20 bpm SpO2: 94% Tempera ture: 36.8 (C) / 98.3 (F) Weight: 112 lbs 08/12/2017 Blood Pressure 1: 116/68 Code: 8480-6 BMI: 20.1 Code: 97290-9 Heart Rate 1: 80 bpm Height: 5'4" Respiratory Rate: 22 bpm SpO2: 95% Tempera ture: 36.8 (C) / 98.2 (F) Weight: 117 lbs 07/06/2017 Blood Pressure 1: 136/78 Code: 8480-6 BMI: 20.6 Code: 39894-0 Heart Rate 1: 76 bpm Height: 5'4" Respiratory Rate: 24 bpm SpO2: 96% Tempera ture: 36.8 (C) / 98.2 (F) Weight: 120 lbs 06/02/2017 Blood Pressure 1: 112/70 Code: 8480-6 Heart Rate 1: 92 bpm Height: 5'4" Respiratory Rate: 24 bpm SpO2: 95% Temperature: 37.0 (C) / 98.6 (F) Weight: 04/29/2017 Blood Pressure 1: 94/52 Code: 8480-6 BMI: 19.6 C ode: 03491-8 Heart Rate 1: 84 bpm Height: 5'4" [...] 92/58 Code: 8480-6 BMI: 19.2 C ode: 32752-2 Heart Rate 1: 84 bpm Height: 5'4" Respiratory Rate: 26 bpm SpO2: 95% Tempera ture: 36.7 (C) / 98.0 (F) Weight: 112 lbs 12/01/2016 Blood Pressure 1: 114/70 Code: 8480-6 BMI: 19.2 Code: 46522-7 Heart Rate 1: 96 bpm Height: 5'4" Respiratory Rate: 28 bpm SpO2: 93% Tempera ture: 38.3 (C) / 101.0 (F) Weight: 112 lbs 10/27/2016 Blood Pressure 1: 126/66 Code: 8480-6 BMI: 19.6 Code: 03402-8 Heart Rate 1: 92 bpm Height: 5'4" Respiratory Rate: 28 bpm SpO2: 90% Tempera ture: 36.8 (C) / 98.3 (F) Weight: 114 lbs 09/09/2016 Blood Pressure 1: 126/74 Code: 8480-6 Heart Rate 1: 104 bpm Height: 5'4" Respiratory Rate: 32 bpm SpO2: 88% Temperature: 37 .2 (C) / 99.0 (F) 08/26/2016 Blood Pressure 1: 134/82 Code: 8480-6 BMI: 22.0 Code: 45354-4 Heart Rate 1: 84 bpm Height: 5'4" Respiratory Rate: 24 bpm SpO2: 94% Tempera ture: 36.8 (C) / 98.3 (F) Weight: 128 lbs 05/21/2016 Blood Pressure 1: 142/80 Code: 8480-6 BMI: 21.6 Code: 52966-3 Heart Rate 1: 104 bpm Height: 5'4" Respiratory Rate: 22 bpm SpO2: 93% Tempera ture: 36.0 (C) / 96.8 (F) Weight: 126 lbs 03/25/2016 Blood Pressure 1: 126/62 Code: 8480-6 Heart Rate 1: 88 bpm Respiratory Rate: 20 bpm SpO2: 92% Temperature: 36.8 (C) / 98.3 (F) We ight: 130 lbs 01/23/2016 Blood Pressure 1: 146/82 Code: 8480-6 BMI: 24.1 Code: 26148-9 Heart Rate 1: 92 bpm Height: 5'3" Respiratory Rate: 22 bpm Temperature: 37 .1 (C) / 98.8 (F) Weight: 136 lbs 12/26/2015 Blood Pressure 1: 142/78 Code: 8480-6 BMI: 24.6 Code: 43235-4 Heart Rate 1: 78 bpm Height: 5'3" Respiratory Rate: 20 bpm Temperature: 36 .7 (C) / 98.1 (F) Weight: 139 lbs 12/03/2015 Blood Pressure 1: 126/60 Code: 8480-6 BMI: 24.6 Code: 16425-5 Heart Rate 1: 100 bpm Height: 5'3" Respiratory Rate: 28 bpm Temperature: 37 .6 (C) / 99.6 (F) Weight: 139 lbs 09/10/2015 Blood Pressure 1: 124/64 Code: 8480-6 BMI: 23.7 Code: 41822-2 Heart Rate 1: 88 bpm Height: 5'3" Respiratory Rate: 24 bpm SpO2: 95% Tempera ture: 36.4 (C) / 97.6 (F) Weight: 134 lbs 08/06/2015 Blood Pressure 1: 114/76 Code: 8480-6 BMI: 23.2 Code: 59403-6 Heart Rate 1: 88 bpm Height: 5'3" Respiratory Rate: 22 bpm Temperature: 36 .6 (C) / 97.9 (F) Weight: 131 lbs 07/18/2015 Blood Pressure 1: 144/78 Code: 8480-6 BMI: 23.7 Code: 88089-0 Heart Rate 1: 84 bpm Height: 5'3" Respiratory Rate: 20 bpm Temperature: 37 .2 (C) / 99.0 (F) Weight: 134 lbs 04/10/2015 Blood Pressure 1: 110/64 Code: 8480-6 Heart Rate 1: 80 bpm Height: Respiratory Rate: 20 bpm Temperature: 37.1 (C) / 98.8 (F) Weight: 03/05/2015 Blood Pressure 1: 136/80 Code: 8480-6 BMI: 23.9 Code: 04882-1 Heart Rate 1: 76 bpm Height: 5'3" Respiratory Rate: 24 bpm Temperature: 37 .0 (C) / 98.6 (F) Weight: 135 lbs 01/30/2015 Blood Pressure 1: 142/80 Code: 8480-6 BMI: 23.0 Code: 47088-5 Heart Rate 1: 96 bpm Height: 5'3" Respiratory Rate: 22 bpm Temperature: 36 .2 (C) / 97.2 (F) Weight: 130 lbs 01/02/2015 Blood Pressure 1: 124/70 Code: 8480-6 BMI: 23.4 Code: 77189-4 Heart Rate 1: 84 bpm Height: 5'3" Respiratory Rate: 24 bpm SpO2: 95% Tempera ture: 36.9 (C) / 98.5 (F) Weight: 132 lbs 10/03/2014 Blood Pressure 1: 106/68 Code: 8480-6 BMI: 22.5 Code: 75085-9 Heart Rate 1: 88 bpm Height: 5'3" Respiratory Rate: 24 bpm Temperature: 37 .0 (C) / 98.6 (F) Weight: 127 lbs 08/27/2014 Blood Pressure 1: 124/68 Code: 8480-6 BMI: 21.1 Code: 48634-0 Heart Rate 1: 88 bpm Height: 5'3" [...] 1: 120/70 Code: 8480-6 BMI: 19.2 Code: 36450-4 Heart Rate 1: 70 bpm Height: 5'4" Respiratory Rate: 20 bpm Temperature: 36 .9 (C) / 98.4 (F) Weight: 112 lbs 06/28/2013 Blood Pressure 1: 102/68 Code: 8480-6 BMI: 19.6 Code: 69146-7 Heart Rate 1: 76 bpm Height: 5'4" Respiratory Rate: 20 bpm Temperature: 36 .8 (C) / 98.2 (F) Weight: 114 lbs 05/31/2013 Blood Pressure 1: 106/70 Code: 8480-6 BMI: 18.9 Code: 48443-0 Heart Rate 1: 100 bpm Height: 5'4" Respiratory Rate: 20 bpm Temperature: 36 .4 (C) / 97.6 (F) Weight: 110 lbs 05/03/2013 Blood Pressure 1: 126/70 Code: 8480-6 BMI: 19.1 Code: 47299-8 Heart Rate 1: 88 bpm Height: 5'4" Respiratory Rate: 20 bpm Temperature: 37 .1 (C) / 98.8 (F) Weight: 111 lbs 04/25/2013 Blood Pressure 1: 114/68 Code: 8480-6 BMI: 19.4 Code: 85637-4 Heart Rate 1: 92 bpm Height: 5'4" Respiratory Rate: 24 bpm SpO2: 96% Tempera ture: 37.7 (C) / 99.8 (F) Weight: 113 lbs 03/08/2013 Blood Pressure 1: 94/68 Code: 8480-6 BMI: 21.3 C ode: 24188-6 Heart Rate 1: 88 bpm Height: 5'4" Respiratory Rate: 24 bpm Temperature: 37 .0 (C) / 98.6 (F) Weight: 124 lbs 02/07/2013 Blood Pressure 1: 106/64 Code: 8480-6 BMI: 21.8 Code: 34726-8 Heart Rate 1: 84 bpm Height: 5'4" Respiratory Rate: 22 bpm Temperature: 36 .8 (C) / 98.2 (F) Weight: 127 lbs 01/10/2013 Blood Pressure 1: 122/68 Code: 8480-6 BMI: 21.6 Code: 23792-7 Heart Rate 1: 94 bpm Height: 5'4" SpO2: 94% Temperature: 36.7 (C) / 98.1 (F) Weight: 126 lbs 09/28/2012 Blood Pressure 1: 124/78 Code: 8480-6 BMI: 24.9 Code: 57377-0 Heart Rate 1: 92 bpm Height: 5'4" Respiratory Rate: 20 bpm Temperature: 36 .7 (C) / 98.1 (F) Weight: 145 lbs 06/28/2012 Blood Pressure 1: 134/80 Code: 8480-6 BMI: 24.9 Code: 59626-3 Heart Rate 1: 76 bpm Height: 5'4" Respiratory Rate: 20 bpm Temperature: 36 .8 (C) / 98.2 (F) Weight: 145 lbs 05/03/2012 Blood Pressure 1: 108/62 Code: 8480-6 BMI: 25.6 Code: 61400-2 Heart Rate 1: 88 bpm Height: 5'4" Temperature: 36.2 (C) / 97.2 (F) Weight: 149 lbs 03/01/2012 Blood Pressure 1: 124/66 Code: 8480-6 BMI: 25.1 Code: 93774-7 Heart Rate 1: 76 bpm Height: 5'4" Respiratory Rate: 20 bpm Temperature: 36 .6 (C) / 97.9 (F) Weight: 146 lbs 01/26/2012 Blood Pressure 1: 118/82 Code: 8480-6 BMI: 25.1 Code: 96883-0 Heart Rate 1: 74 bpm Height: 5'4" Temperature: 36.8 (C) / 98.2 (F) Weight: 146 lbs 11/03/2011 Blood Pressure 1: 126/80 Code: 8480-6 BMI: 27.3 Code: 60455-9 Heart Rate 1: 72 bpm Height: 5'4" [...] prozac Encounters Encounter Performer Location Codes Date ([id number]) OFFICE/OUTPATIENT VISIT EST Diagnosis: Chronic pain syndrome[ICD10: G89.4] Diagnosis: Localized edema[ICD10: R60.0] Diagnosis: Chronic obstructive pulmonary disease, unspecified[ICD10: J44.9] Diagnosis: Other fatigue[ICD10: R53.83] Diagnosis: Muscle weakness (generalized)[ICD10: M62.81] Diagnosis: Spinal stenosis, lumbar region with neurogenic claudication[ICD10: M48.062] [employer] [employer] CPT-4: 52889 11/29/2019 ([id number]) OFFICE/OUTPATIENT VISIT EST Diagnosis: Chronic pain syndrome[ICD10: G89.4] Diagnosis: Lumbar degenerative disc disease[ICD10: M51.36] Diagnosis: Muscle spasm[ICD10: M62.838] Diagnosis: Spinal stenosis, lumbar region with neurogenic claudication[ICD10: M48.062] Diagnosis: Spondylosis without myelopathy or radiculopathy, 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] Vika Bello [employer] CPT-4: 95441 10/30/2019 ([id number]) OFFICE/OUTPATIENT VISIT EST Diagnosis: Chronic pain syndrome[ICD10: G89.4] Vika Bello [employer] CPT-4: 36450 10/25/2019 ([id number]) OFFICE/OUTPATIENT VISIT EST Diagnosis: Epigastric pain[ICD10: R10.13] Diagnosis: Nausea[ICD10: R11.0] Diagnosis: Chronic obstructive pulmonary disease, unspecified[ICD10: J44.9] Vika Bello [employer] CPT-4: 39602 07/26/2019 ([id number]) OFFICE/OUTPATIENT VISIT EST Diagnosis: Chronic obstructive pulmonary disease with (acute) exacerbation[ICD10: J44.1] Diagnosis: Chronic respiratory failure with hypoxia[ICD10: J96.11] Diagnosis: Other fatigue[ICD10: R53.83] Diagnosis: Edema, unspecified[ICD10: R60.9] Vika [employer] CPT-4: 95926 07/19/2019 ([id number]) OFFICE/OUTPATIENT VISIT EST Diagnosis: Chronic obstructive pulmonary disease with acute lower respiratory infection[ICD10: J44.0] Vika [employer] CPT-4: 60221 07/10/2019 ([id number]) OFFICE/OUTPATIENT VISIT EST Diagnosis: Type 2 diabetes mellitus with hyperglycemia[ICD10: E11.65] Diagnosis: Other infective otitis externa, left ear[ICD10: H60.392] Vika RENTERIA [facility] CPT-4: 21913 06/05/2019 ([id number]) OFFICE/OUTPATIENT VISIT EST Diagnosis: Chronic obstructive pulmonary disease with (acute) exacerbation[ICD10: J44.1] Diagnosis: Type 2 diabetes mellitus with hyperglycemia[ICD10: E11.65] Vika [employer] CPT-4: 73111 05/03/2019 ([id number]) OFFICE/OUTPATIENT VISIT EST Diagnosis: Type 2 diabetes mellitus with hyperglycemia[ICD10: E11.65] Diagnosis: Abnormal weight gain[ICD10: R63.5] Diagnosis: Chronic obstructive pulmonary disease with acute lower respiratory infection[ICD10: J44.0] Vika RENTERIA [facility] CPT-4: 27505 04/11/2019 ([id number]) OFFICE/OUTPATIENT VISIT EST Diagnosis: Hypothyroidism, unspecified[ICD10: E03.9] Diagnosis: Abnormal weight gain[ICD10: R63.5] Diagnosis: Other fatigue[ICD10: R53.83] Vika RENTERIA [facility] CPT-4: 34399 03/16/2019 ([id number])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
--- OUTSIDE RECORDS SUMMARY | 2020-04-24 23:32 | XMS REPORT | CCD ---
Author Author Yana Renteria D.O. 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 Name Role Phone Vika Renteria D.O., PP Unavailable CCM Unavailable Summary Purpose Interface Exchange Insurance Providers Payer name Policy type / Coverage type Covered democrat ID Effective Begin Date Effective End Date [employer] [facility] Medicaid [id number] 2018 U nknown Family History Family History data not found Social History Social History Element Codes Description Effective Dates Marital status Unknown 06/28/[address]: [id number] Currently smokes tobacco 05/2013 Allergies, Adverse Reactions, [...] MS Contin 200 mg tablet,extended release RxNorm: 517809 1 Tablet(s) Oral two times a day 11/29/2019 12/29/2019 Active cyclobenzaprine 10 mg tablet RxNorm: 460365 TAKE ONE TA BLET BY MOUTH THREE TIMES A DAY NEEDED 11/21/2019 No Stop Date Active MS Contin 200 mg tablet,extended release RxNorm: 572170 1 Tablet(s) Oral two times a day replaces 100mg dose 11/03/2019 11/02/2019 Inactive MS Contin 200 mg tablet,extended release RxNorm: 511081 1 Tablet(s) Oral two times a day replaces 100mg dose 11/03/2019 11/29/2019 Inactive ferrous sulfate 325 mg (65 mg iron) tablet RxNorm: 311797 1 Tab let(s) Oral QD 10/30/2019 No Stop Date Active MS Contin 100 mg tablet,extended release RxNorm: 394971 1 Table t(s) Oral QD 10/30/2019 10/29/2019 Inactive MS Contin 100 mg tablet,extended release RxNorm: 347645 1 Table t(s) Oral QD 10/30/2019 11/02/2019 Inactive Relistor 150 mg tablet RxNorm: 4253198 TAKE THREE TABLETS BY BENOIT TH DAILY 10/25/2019 No Stop Date Active pantoprazole 40 mg tablet,delayed release RxNorm: 888677 1 Tabl et(s) Oral QD 10/25/2019 No Stop Date Active metformin 500 mg tablet RxNorm: 069720 1 Tablet(s) Oral QD 10/25/20 19 No Stop Date Active levothyroxine 25 mcg tablet RxNorm: 752030 1 Tablet(s) Oral QAM 02/201912/23/2019 Active Minipress 2 mg capsule RxNorm: 452549 1 Capsule(s) Oral QAM and 3 at bedtime 10/25/2019 No Stop Date Active Lancets, Super Thin RxNorm: 1 Unit Dose Miscellaneous QD 9 11/27/2020 Active Cymbalta 60 mg capsule,delayed release RxNorm: 549271 1 Capsule (s) Oral QAM 10/25/2019 No Stop Date Active Cymbalta 30 mg capsule,delayed release RxNorm: 186225 1 Capsule (s) Oral QAM 10/25/2019 No Stop Date Active oxycodone 15 mg tablet RxNorm: 3026060 1 Tablet(s) Oral four times a day as needed for pain 10/25/2019 11/28/2019 Inactive levothyroxine 25 mcg tablet RxNorm: 694685 1 Tablet(s) Oral QAM 02/201910/24/2019 Inactive MS Contin 100 mg tablet,extended release RxNorm: 163958 1 Tablet(s) Oral two times a day replaces fentanyl 10/25/2019 10/25/2019 Inactive Premarin 0.45 mg tablet RxNorm: 592967 TAKE ONE TABLET BY MOUTH DAILY 10/24/2019 No Stop Date Active Duragesic 100 mcg/hr transdermal patch RxNorm: 929690 2 Application TD Q48H for pain 10/18/2019 10/24/2019 Inactive gabapentin 300 mg capsule RxNorm: 168424 TAKE ONE CAPSULE BY MO UTH TWICE A DAY 10/16/2019 No Stop Date Active cyclobenzaprine 10 mg tablet RxNorm: 814832 TAKE ONE TA BLET BY MOUTH THREE TIMES A DAY NEEDED 09/27/2019 11/20/2019 Inactive ProAir HFA 90 mcg/actuation aerosol inhaler RxNorm: 106203 INHALE ONE PUFF BY MOUTH EVERY 4 HOURS FOR WHEEZING OR FOR SHORTNESS OF BREATH 09/25/2019 No Stop Date Active furosemide 40 mg tablet RxNorm: 903382 1 Tablet(s) Oral QAM as needed 09/25/2019 09/25/2019 Inactive Relistor 150 mg tablet RxNorm: 5281049 TAKE THREE TABLETS BY BENOIT TH DAILY 09/25/2019 10/24/2019 Inactive oxycodone 15 mg tablet RxNorm: 5011469 1 Tablet(s) PO QID as nee ded for pain 09/21/2019 10/24/2019 Inactive Duragesic 100 mcg/hr transdermal patch RxNorm: 175529 2 Application TD Q48H for pain 09/19/2019 10/17/2019 Inactive Daliresp 500 mcg tablet RxNorm: 4848689 1 Tablet(s) Oral QD 019 03/08/2020 Active potassium chloride ER 20 mEq tablet,extended release RxNorm: 501499 TAKE ONE TABLET BY MOUTH DAILY 07/25/2019 01/20/2020 Active Relistor 150 mg tablet RxNorm: 0046490 TAKE THREE TABLETS BY BENOIT TH DAILY 07/25/2019 07/30/2019 Inactive cyclobenzaprine 10 mg tablet RxNorm: 532081 TAKE ONE TA BLET BY MOUTH THREE TIMES A DAY NEEDED 07/25/2019 09/22/2019 Inactive fluoxetine 40 mg capsule RxNorm: 999574 TAKE ONE CAPSULE BY BENOIT TH EVERY MORNING 07/11/2019 10/24/2019 Inactive Medrol (Aníbal) 4 mg tablets in a dose pack RxNorm: 023859 6 Tablet(s) PO QD --then as directed 07/10/2019 07/15/2019 Inactive omeprazole 40 mg capsule,delayed release RxNorm: 226937 1 Capsule(s) PO QD for stomach TAKE ONE CAPSULE BY MOUTH DAILY 07/10/2019 10/24/2019 Inactive Augmentin 875 mg-125 mg tablet RxNorm: 331441 1 Tablet(s) PO BID 07/16/2019 Inactive Trulicity 0.75 mg/0.5 mL subcutaneous pen injector RxNorm: 1 548998 0.75 Milliliter(s) SQ weekly 07/05/2019 10/24/2019 Inactive Compazine 10 mg tablet RxNorm: 005194 TAKE ONE TABLET B Y MOUTH FOUR TIMES A DAY NEEDED FOR NAUSEA 06/20/2019 07/19/2019 Inactive ProAir HFA 90 mcg/actuation aerosol inhaler RxNorm: 097369 INHALE ONE PUFF BY MOUTH EVERY 4 HOURS FOR WHEEZING OR FOR SHORTNESS OF BREATH 06/20/2019 06/23/2019 Inactive Daliresp 500 mcg tablet RxNorm: 8133199 TAKE ONE TABLET BY MOUTH DAILY 06/12/2019 09/10/2019 Inactive tgucvepw-iqwcyacmq-oywhylrin 3.5 mg/mL-10,000 unit/mL- 1 % ear solution RxNorm: 777679 4 Drop(s) otic (ear) TID to left ear 06/05/2019 10/24/2019 Inac tive furosemide 40 mg tablet RxNorm: 326004 TAKE ONE TABLET BY MOUTH EVERY MORNING 05/26/2019 07/09/2019 Inactive Duragesic 100 mcg/hr transdermal patch RxNorm: 678665 2 Application TD Q48H for pain 05/16/2019 06/14/2019 Inactive oxycodone 15 mg tablet RxNorm: 5580283 1 Tablet(s) PO QID as nee ded for pain 05/10/2019 09/20/2019 Inactive doxycycline hyclate 100 mg capsule RxNorm: 7856470 1 Capsule(s) PO BID 05/03/2019 05/12/2019 Inactive prednisone 20 mg tablet RxNorm: 552707 1 Tablet(s) PO T ID for 3 days then 1 po BID for 3 days then one daily for 3 days 05/03/2019 07/11/2019 Inactiv e Ozempic 0.25 mg or 0.5 mg (2 mg/1.5 mL) subcutaneous p en injector RxNorm: 1820383 0.5 Milligram(s) SQ QW 05/03/2019 07/09/2019 Inactive fluconazole 100 mg tablet RxNorm: 201522 1 Tablet(s) PO QD 05/03/2005/07/2019 Inactive Premarin 0.45 mg tablet RxNorm: 920658 TAKE ONE TABLET BY MOUTH DAILY 05/03/2019 10/23/2019 Inactive potassium chloride ER 20 mEq tablet,extended release RxNorm: 640149 1 Tablet(s) PO QD 04/27/2019 07/25/2019 Inactive potassium chloride ER 20 mEq tablet,extended release RxNorm: 420356 1 Tablet(s) PO QD 04/25/2019 04/26/2019 Inactive Compazine 10 mg tablet RxNorm: 606890 1 Tablet(s) PO QID as nee ded for nausea 04/25/2019 05/04/2019 Inactive ProAir HFA 90 mcg/actuation aerosol inhaler RxNorm: 227999 INHALE ONE PUFF BY MOUTH EVERY 4 HOURS FOR WHEEZING OR FOR SHORTNESS OF BREATH 04/12/2019 06/10/2019 Inactive Medrol (Aníbal) 4 mg tablets in a dose pack RxNorm: 002472 6 Tablet(s) PO QD --then as directed 04/11/2019 04/16/2019 Inactive Symbicort 160 mcg-4.5 mcg/actuation HFA aerosol inhaler RxNo rm: 1246484 2 Puff(s) INH BID 04/10/2019 10/06/2019 Inactive levothyroxine 50 mcg tablet RxNorm: 408061 1 Tablet(s) PO QD 201810/24/2019 Inactive gabapentin 300 mg capsule RxNorm: 500347 1 Capsule(s) PO BID 201810/02/2019 Inactive Symbicort 160 mcg-4.5 mcg/actuation HFA aerosol inhaler RxNo rm: 4808030 2 Puff(s) INH BID 04/06/2019 04/09/2019 Inactive oxycodone 15 mg tablet RxNorm: 4929993 1 Tablet(s) PO QID as nee ded for pain 04/05/2019 05/09/2019 Inactive levothyroxine 50 mcg tablet RxNorm: 133696 1 Tablet(s) PO QD 201804/09/2019 Inactive furosemide 40 mg tablet RxNorm: 868594 TAKE ONE TABLET BY MOUTH EVERY MORNING 03/21/2019 04/19/2019 Inactive levothyroxine 50 mcg tablet RxNorm: 348720 TAKE ONE TABLET BY M OUTH DAILY 03/21/2019 03/27/2019 Inactive Duragesic 100 mcg/hr transdermal patch RxNorm: 769117 2 Application TD Q48H for pain 03/13/2019 04/11/2019 Inactive oxycodone 15 mg tablet RxNorm: 8708976 1 Tablet(s) PO QID as nee ded for pain 03/06/2019 04/04/2019 Inactive Relistor 150 mg tablet RxNorm: 3128308 3 Tablet(s) PO QD 02/28/2019 0 05/28/2019 Inactive cyclobenzaprine 10 mg tablet RxNorm: 084018 1 Tablet(s) PO TID as needed 02/28/2019 05/28/2019 Inactive phentermine 37.5 mg tablet RxNorm: 697640 1 Tablet(s) PO QAM 201803/15/2019 Inactive Duragesic 100 mcg/hr transdermal patch RxNorm: 966753 2 Application TD Q48H for pain 02/09/2019 03/10/2019 Inactive Daliresp 500 mcg tablet RxNorm: 6949525 TAKE ONE TABLET BY MOUTH DAILY 01/31/2019 05/30/2019 Inactive Premarin 0.45 mg tablet RxNorm: 834817 1 Tablet(s) PO QD 01/31/2019 0 04/30/2019 Inactive fluoxetine 40 mg capsule RxNorm: 605123 Capsule(s) TAKE ONE CAPSULE BY MOUTH EVERY MORNING 01/31/2019 04/30/2019 Inactive levothyroxine 50 mcg tablet RxNorm: 850665 1 Tablet(s) PO QD 201804/10/2019 Inactive follow up in 3 weeks levothyroxine 50 mcg tablet RxNorm: 898896 1 Tablet(s) PO QD 201801/25/2019 Inactive follow up in 3 weeks potassium chloride ER 20 mEq tablet,extended release RxNorm: 386350 2 Tablet(s) PO BID 01/23/2019 02/14/2019 Inactive Synthroid 50 mcg tablet RxNorm: 193322 TAKE ONE TABLET BY MOUTH DAILY 01/16/2019 10/24/2019 Inactive potassium chloride ER 20 mEq tablet,extended release RxNorm: 578034 2 Tablet(s) PO BID 01/04/2019 01/22/2019 Inactive ProAir HFA 90 mcg/actuation aerosol inhaler RxNorm: 750742 INHALE ONE PUFF BY MOUTH EVERY 4 HOURS FOR WHEEZING OR SHORTNESS OF BREATH 01/04/201902/20 Inactive Request already responded to by other me ans (e.g. phone or fax) ProAir HFA 90 mcg/actuation aerosol inhaler RxNorm: 5819927 INHALE ONE PUFF BY MOUTH EVERY 4 HOURS FOR WHEEZING OR SHORTNESS OF BREATH 01/02/201912/23 Inactive gabapentin 300 mg capsule RxNorm: 063327 TAKE ONE CAPSULE BY MO UTH TWICE A DAY 12/30/2018 04/06/2019 Inactive furosemide 40 mg tablet RxNorm: 416841 1 Tablet(s) PO QAM 12/26/2018 02/23/2019 Inactive Compazine 10 mg tablet RxNorm: 728012 1 Tablet(s) PO QID as nee ded for nausea 12/07/2018 12/16/2018 Inactive metolazone 2.5 mg tablet RxNorm: 335499 TAKE ONE TABLET BY MOUT H EVERY MORNING 12/05/2018 01/03/2019 Inactive metformin ER 500 mg tablet,extended release 24 hr RxNorm: 86 0975 TAKE ONE TABLET BY MOUTH DAILY 12/05/2018 04/10/2019 Inactive Synthroid 50 mcg tablet RxNorm: 876001 1 Tablet(s) PO QD 11/25/2018 0 01/03/2019 Inactive DC any other synthroid strengths. Should be 50mcg only cyclobenzaprine 10 mg tablet RxNorm: 047067 TAKE ONE TA BLET BY MOUTH THREE TIMES A DAY NEEDED 11/09/2018 02/06/2019 Inactive metolazone 2.5 mg tablet RxNorm: 590865 1 Tablet(s) PO QAM repl aces 5mg dose 11/02/2018 12/01/2018 Inactive potassium chloride ER 20 mEq tablet,extended release RxNorm: 687299 2 Tablet(s) PO QD 2018 01/02/2019 Inactive Compazine 10 mg tablet RxNorm: 836460 1 Tablet(s) PO QID as nee ded for nausea 10/18/2018 12/07/2018 Inactive furosemide 40 mg tablet RxNorm: 956191 1 Tablet(s) PO QAM 10/12/2018 12/10/2018 Inactive ondansetron 8 mg disintegrating tablet RxNorm: 851869 1 Tablet(s) PO Q6H as needed 10/11/2018 10/17/2018 Inactive scopolamine 1 mg over 3 days transdermal patch RxNorm: 74685 2 1 Application TD behind ear. Take off after three days 10/11/2018 01/02/2019 Inactive furosemide 40 mg tablet RxNorm: 021853 1 Tablet(s) PO QAM 10/10/2018 12/26/2018 Inactive metolazone 5 mg tablet RxNorm: 785054 1 Tablet(s) PO QAM 10/06/2018 1 01/03/2018 Inactive metolazone 5 mg tablet RxNorm: 676905 1 Tablet(s) PO QAM 10/06/2018 1 12/05/2017 Inactive Xtampza ER 36 mg capsule sprinkle RxNorm: 1608765 1 Capsule(s) P O BID 10/05/2018 01/02/2019 Inactive Xtampza ER 36 mg capsule sprinkle RxNorm: 1336090 1 Capsule(s) P O BID 10/05/2018 02/12/2019 Inactive omeprazole 40 mg capsule,delayed release RxNorm: 811644 TAKE ONE CAPSULE BY MOUTH DAILY 10/03/2018 12/31/2018 Inactive Duragesic 100 mcg/hr transdermal patch RxNorm: 443699 2 Application TD Q48H for pain 09/30/2018 10/29/2018 Inactive Synthroid 50 mcg tablet RxNorm: 694997 1 Tablet(s) PO QD 09/29/2018 0 11/25/2018 Inactive DC any other synthroid strengths. Should be 50mcg only Synthroid 50 mcg tablet RxNorm: 334351 1 Tablet(s) PO QD 09/29/2018 1 11/28/2017 Inactive furosemide 40 mg tablet RxNorm: 566459 2 Tablet(s) PO Q AM for 1 week then every other day for 2 weeks 09/27/2018 10/12/2018 Inactive fluoxetine 40 mg capsule RxNorm: 057230 2 Capsule(s) PO QD 09/27/20 18 10/17/2018 Inactive potassium chloride ER 20 mEq tablet,extended release RxNorm: 108564 2 Tablet(s) PO QD for 1 week then every other day for 2 weeks 09/27/2018 2018 Inactive ProAir HFA 90 mcg/actuation aerosol inhaler RxNorm: 9957959 INHALE ONE PUFF BY MOUTH EVERY 4 HOURS FOR WHEEZING OR SHORTNESS OF BREATH 09/26/201811/23 Inactive Synthroid 75 mcg tablet RxNorm: 038687 1 Tablet(s) PO QD 09/09/2018 1 Inactive Synthroid 75 mcg tablet RxNorm: 391524 1 Tablet(s) PO QD 09/09/2018 1 11/28/2017 Inactive furosemide 40 mg tablet RxNorm: 624444 1 Tablet(s) PO QD 09/06/2018 1 Inactive potassium chloride ER 20 mEq tablet,extended release RxNorm: 347928 1 Tablet(s) PO QD 09/06/2018 09/19/2018 Inactive Duragesic 100 mcg/hr transdermal patch RxNorm: 214690 2 Application TD Q48H for pain 08/30/2018 09/28/2018 Inactive gabapentin 300 mg capsule RxNorm: 265260 TAKE ONE CAPSULE BY MO UTH TWICE A DAY 08/23/2018 12/20/2018 Inactive Daliresp 500 mcg tablet RxNorm: 6402129 TAKE ONE TABLET BY MOUTH DAILY 08/23/2018 01/19/2019 Inactive Pulmicort 1 mg/2 mL suspension for nebulization RxNorm: 6168 19 USE ONE VIAL VIA NEBULIZER BY MOUTH TWICE A DAY 08/23/2018 07/11/2019 Inactive Synthroid 88 mcg tablet RxNorm: 802861 1 Tablet(s) PO QD 08/19/2018 1 Inactive Medrol (Aníbal) 4 mg tablets in a dose pack RxNorm: 764886 Tablet(s) PO take as directed 08/16/2018 09/05/2018 Inactive Relistor 150 mg tablet RxNorm: 7666156 3 Tablet(s) PO QD 08/16/2018 1 Inactive Zithromax Z-Aníbal 250 mg tablet RxNorm: 054108 Tablet(s) PO take as directed 08/16/2018 09/05/2018 Inactive cyclobenzaprine 10 mg tablet RxNorm: 832244 1 Tablet(s) PO TID as needed 08/16/2018 11/08/2018 Inactive Synthroid 88 mcg tablet RxNorm: 659566 1 Tablet(s) PO Q D NEEDS UPDATED LABS BEFORE FURTHER REFILLS 08/08/2018 08/19/2018 Inactive Premarin 0.45 mg tablet RxNorm: 591597 1 Tablet(s) PO QD 08/03/2018 0 01/31/2019 Inactive fluoxetine 20 mg capsule RxNorm: 768532 TAKE ONE CAPSULE BY BENOIT TH DAILY 08/03/2018 09/26/2018 Inactive Xtampza ER 36 mg capsule sprinkle RxNorm: 3780916 1 Capsule(s) P O BID 08/03/2018 09/01/2018 Inactive metformin ER 500 mg tablet,extended release 24 hr RxNorm: 86 0975 1 Tablet(s) PO QD 08/03/2018 10/31/2018 Inactive Symbicort 160 mcg-4.5 mcg/actuation HFA aerosol inhaler RxNo rm: 9813593 2 Puff(s) INH BID 08/03/2018 01/29/2019 Inactive Duragesic 100 mcg/hr transdermal patch RxNorm: 255355 2 Application TD Q48H for pain 07/29/2018 08/27/2018 Inactive ProAir HFA 90 mcg/actuation aerosol inhaler RxNorm: 528148 INHALE TWO PUFFS BY MOUTH EVERY 4 HOURS FOR WHEEZING OR SHORTNESS OF BREATH 07/27/201802/2018 Inactive Relistor 150 mg tablet RxNorm: 9926579 3 Tablet(s) PO QD 07/20/2018 0 08/15/2018 Inactive metformin ER 500 mg tablet,extended release 24 hr RxNorm: 86 0975 TAKE ONE TABLET BY MOUTH DAILY 07/08/2018 08/02/2018 Inactive fluoxetine 40 mg capsule RxNorm: 192646 TAKE ONE CAPSULE BY BENOIT TH EVERY MORNING 07/08/2018 10/05/2018 Inactive Xtampza ER 18 mg capsule sprinkle RxNorm: 2619708 1 Capsule(s) P O BID 07/08/2018 08/02/2018 Inactive Relistor 150 mg tablet RxNorm: 6843031 3 Tablet(s) PO QD 07/08/2018 0 07/12/2018 Inactive Synthroid 88 mcg tablet RxNorm: 004048 1 Tablet(s) PO Q D NEEDS UPDATED LABS BEFORE FURTHER REFILLS 06/23/2018 07/07/2018 Inactive fluoxetine 40 mg capsule RxNorm: 966772 TAKE ONE CAPSULE BY BENOIT TH EVERY MORNING 06/15/2018 09/26/2018 Inactive orphenadrine citrate ER 100 mg tablet,extended release RxNor m: 063078 TAKE ONE TABLET BY MOUTH TWICE A DAY FOR MUSCLE SPASM 06/15/2018 08/15/2018 Renu ctive Duragesic 100 mcg/hr transdermal patch RxNorm: 064948 2 Application TD Q48H for pain 05/30/2018 06/28/2018 Inactive ProAir HFA 90 mcg/actuation aerosol inhaler RxNorm: 489381 INHALE TWO PUFFS BY MOUTH EVERY 4 HOURS FOR WHEEZING OR SHORTNESS OF BREATH 05/19/201803/2018 Inactive Chantix Continuing Month Box 1 mg tablet RxNorm: 161245 TAKE ONE TABLET BY MOUTH TWICE A DAY 05/19/2018 08/15/2018 Inactive oxycodone 10 mg tablet RxNorm: 1904389 1-2 Tablet(s) PO QID as n eeded for pain 05/19/2018 07/07/2018 Inactive gabapentin 300 mg capsule RxNorm: 613141 TAKE ONE CAPSULE BY MO UTH TWICE A DAY 05/18/2018 07/16/2018 Inactive ProAir HFA 90 mcg/actuation aerosol inhaler RxNorm: 047098 INHALE TWO PUFFS BY MOUTH EVERY 4 HOURS FOR WHEEZING OR SHORTNESS OF BREATH 05/04/201804/23 Inactive Augmentin 500 mg-125 mg tablet RxNorm: 721670 1 Tablet(s) PO BID 05/03/2018 Inactive oxycodone 10 mg tablet RxNorm: 4420042 1-2 Tablet(s) PO QID as n eeded for pain 04/21/2018 05/18/2018 Inactive Synthroid 88 mcg tablet RxNorm: 504042 1 Tablet(s) PO QD 04/15/2018 0 08/08/2018 Inactive Symbicort 160 mcg-4.5 mcg/actuation HFA aerosol inhaler RxNo rm: 1280509 2 Puff(s) INH BID 04/15/2018 04/10/2019 Inactive Premarin 0.45 mg tablet RxNorm: 523754 1 Tablet(s) PO QD 04/15/2018 0 08/03/2018 Inactive ProAir HFA 90 mcg/actuation aerosol inhaler RxNorm: 713946 2 Puff(s) INH Q4H prn for wheezing or shortness of breath 04/15/2018 05/03/2018 Inactive metformin ER 500 mg tablet,extended release 24 hr RxNorm: 86 0975 1 Tablet(s) PO QD 04/11/2018 07/07/2018 Inactive omeprazole 40 mg capsule,delayed release RxNorm: 273929 TAKE ONE CAPSULE BY MOUTH DAILY 04/10/2018 06/08/2018 Inactive Synthroid 88 mcg tablet RxNorm: 929588 1 Tablet(s) PO QD 04/04/2018 0 04/14/2018 Inactive Synthroid 88 mcg tablet RxNorm: 046239 1 Tablet(s) PO QD 04/04/2018 0 04/03/2018 Inactive orphenadrine citrate ER 100 mg tablet,extended release RxNor m: 649051 1 Tablet(s) PO BID for muscle spasm 04/04/2018 05/03/2018 Inactive metformin ER 500 mg tablet,extended release 24 hr RxNorm: 86 0975 1 Tablet(s) PO QD NEEDS UPDATED LABS 03/31/2018 04/11/2018 Inactive doxycycline hyclate 100 mg capsule RxNorm: 3420523 1 Capsule(s) PO BID 03/31/2018 04/09/2018 Inactive prednisone 20 mg tablet RxNorm: 132524 3 Tablet(s) PO T ID for 3 days then 1 po BID for 3 days then one daily for 3 days 03/31/2018 07/06/2018 Inactiv e Chantix Continuing Month Box 1 mg tablet RxNorm: 469278 TAKE ONE TABLET BY MOUTH TWICE A DAY 03/25/2018 03/30/2018 Inactive oxycodone 10 mg tablet RxNorm: 0644645 1-2 Tablet(s) PO QID as n eeded for pain 03/21/2018 04/20/2018 Inactive Daliresp 500 mcg tablet RxNorm: 2718007 1 Tablet(s) PO QD 03/15/2018 08/22/2018 Inactive metformin ER 500 mg tablet,extended release 24 hr RxNorm: 86 0975 1 Tablet(s) PO QD NEEDS UPDATED LABS 03/14/2018 03/31/2018 Inactive nystatin 100,000 unit/mL oral suspension RxNorm: 364771 5 Chio liter(s) PO QID 03/02/2018 03/15/2018 Inactive nystatin 100,000 unit/mL oral suspension RxNorm: 493891 5 Chio liter(s) PO QID 03/02/2018 03/01/2018 Inactive oxycodone 10 mg tablet RxNorm: 7227102 1-2 Tablet(s) PO QID as n eeded for pain 02/16/2018 03/20/2018 Inactive fluoxetine 20 mg capsule RxNorm: 449258 1 Capsule(s) PO QD 02/15/20 18 08/02/2018 Inactive metformin ER 500 mg tablet,extended release 24 hr RxNorm: 86 0975 1 Tablet(s) PO QD Needs updated labs 02/14/2018 03/14/2018 Inactive cefdinir 300 mg capsule RxNorm: 194153 1 Capsule(s) PO BID 01/27/20 18 02/04/2018 Inactive orphenadrine citrate ER 100 mg tablet,extended release RxNor m: 678630 1 Tablet(s) PO BID for muscle spasm 01/26/2018 04/04/2018 Inactive gabapentin 300 mg capsule RxNorm: 416434 1 Capsule(s) PO BID 201704/17/2018 Inactive oxycodone 10 mg tablet RxNorm: 4236549 1-2 Tablet(s) PO QID as n eeded for pain 01/17/2018 02/15/2018 Inactive Duragesic 100 mcg/hr transdermal patch RxNorm: 430090 2 Application TD Q48H for pain 01/17/2018 02/15/2018 Inactive gabapentin 300 mg capsule RxNorm: 240223 TAKE ONE CAPSULE BY MO UTH TWICE A DAY 12/20/2017 01/18/2018 Inactive fluoxetine 40 mg capsule RxNorm: 651861 TAKE ONE CAPSULE BY BENOIT TH EVERY MORNING 12/15/2017 03/14/2018 Inactive OneTouch Ultra Test strips RxNorm: TEST DAILY 11/04/2017 02/01/2018 Inactive gabapentin 300 mg capsule RxNorm: 718399 1 Capsule(s) P O TID replaces BID dosing 10/26/2017 02/22/2018 Inactive oxycodone 10 mg tablet RxNorm: 7331558 1-2 Tablet(s) PO QID as n eeded for pain 10/18/2017 01/16/2018 Inactive Duragesic 100 mcg/hr transdermal patch RxNorm: 358312 2 Application TD Q48H for pain 10/18/2017 11/16/2017 Inactive gabapentin 300 mg capsule RxNorm: 717945 1 Capsule(s) PO BID 201610/25/2017 Inactive Abilify 5 mg tablet RxNorm: 294990 1 Tablet(s) PO QAM 09/23/201702/2017 Inactive gabapentin 300 mg capsule RxNorm: 736033 1 Capsule(s) PO BID 201610/17/2017 Inactive oxycodone 10 mg tablet RxNorm: 7204467 1-2 Tablet(s) PO QID as n eeded for pain 09/15/2017 10/17/2017 Inactive Duragesic 100 mcg/hr transdermal patch RxNorm: 043261 2 Application TD Q48H for pain 09/15/2017 10/14/2017 Inactive Duragesic 100 mcg/hr transdermal patch RxNorm: 408988 2 Application TD Q48H for pain 09/15/2017 10/24/2019 Inactive oxycodone 10 mg tablet RxNorm: 3669640 1-2 Tablet(s) PO QID as n eeded for pain 09/15/2017 08/15/2018 Inactive Daliresp 500 mcg tablet RxNorm: 2673691 1 Tablet(s) PO QD 09/06/2017 03/15/2018 Inactive Ventolin HFA 90 mcg/actuation aerosol inhaler RxNorm: 377403 2 Puff(s) INH Q4H as needed 09/02/2017 05/19/2018 Inactive oxycodone 10 mg tablet RxNorm: 8878839 1-2 Tablet(s) PO QID as n eeded for pain 08/17/2017 09/14/2017 Inactive Duragesic 100 mcg/hr transdermal patch RxNorm: 129399 2 Application TD Q48H for pain 08/17/2017 09/14/2017 Inactive fluoxetine 40 mg capsule RxNorm: 353533 Capsule(s) TAKE ONE CAPSULE BY MOUTH EVERY MORNING 08/17/2017 12/14/2017 Inactive Pulmicort 1 mg/2 mL suspension for nebulization RxNorm: 6168 19 1 Unit Dose INH BID Dx: COPD (J44.9) 08/16/2017 08/22/2018 Inactive gabapentin 300 mg capsule RxNorm: 513087 1 Capsule(s) PO QHS 201610/18/2017 Inactive fluoxetine 20 mg capsule RxNorm: 290849 1 Capsule(s) PO QD 08/12/20 17 02/14/2018 Inactive Abilify 2 mg tablet RxNorm: 590136 1 Tablet(s) PO QD TA KE ONE TABLET BY MOUTH DAILY 08/12/2017 10/25/2017 Inactive metformin ER 500 mg tablet,extended release 24 hr RxNorm: 86 0975 1 Tablet(s) PO QD 08/10/2017 02/14/2018 Inactive Synthroid 112 mcg tablet RxNorm: 311719 1 Tablet(s) PO QD 08/10/2017 04/15/2018 Inactive oxycodone 10 mg tablet RxNorm: 2734290 1-2 Tablet(s) PO QID as n eeded for pain 07/19/2017 08/16/2017 Inactive Duragesic 100 mcg/hr transdermal patch RxNorm: 857069 2 Application TD Q48H for pain 07/19/2017 08/16/2017 Inactive Ventolin HFA 90 mcg/actuation aerosol inhaler RxNorm: 733418 2 Puff(s) INH Q4H as needed 07/12/2017 09/02/2017 Inactive Abilify 2 mg tablet RxNorm: 150087 1 Tablet(s) PO QD TA KE ONE TABLET BY MOUTH DAILY 07/06/2017 08/11/2017 Inactive gabapentin 800 mg tablet RxNorm: 371712 1 Tablet(s) PO TID 06/22/2007/05/2017 Inactive Chantix Starting Month Box 0.5 mg (11)-1 mg (42) table ts in dose pack RxNorm: 644748 TAKE BY MOUTH INSTRUCTED - PER PACKAGE INSTRUCTIONS 06/0707/04/2017 Inactive Ventolin HFA 90 mcg/actuation aerosol inhaler RxNorm: 804099 2 Puff(s) INH Q4H as needed 05/26/2017 07/12/2017 Inactive Duragesic 100 mcg/hr transdermal patch RxNorm: 766063 2 Application TD Q48H for pain 05/19/2017 06/17/2017 Inactive oxycodone 10 mg tablet RxNorm: 4519269 1-2 Tablet(s) PO QID as n eeded for pain 05/19/2017 07/18/2017 Inactive Abilify 2 mg tablet RxNorm: 262374 TAKE ONE TABLET BY MOUTH DAILY 0 05/10/2017 07/05/2017 Inactive Synthroid 112 mcg tablet RxNorm: 001758 1 Tablet(s) PO QD 05/06/2017 08/10/2017 Inactive metformin ER 500 mg tablet,extended release 24 hr RxNorm: 86 0975 1 Tablet(s) PO QD 05/06/2017 08/10/2017 Inactive Topamax 100 mg tablet RxNorm: 892032 1 Tablet(s) PO QHS 05/06/2017 Inactive Premarin 0.45 mg tablet RxNorm: 625806 1 Tablet(s) PO QD 05/06/2017 0 04/15/2018 Inactive orphenadrine citrate ER 100 mg tablet,extended release RxNor m: 905251 1 Tablet(s) PO TID for muscle spasm--replaces methocarbamol 04/29/2017 Inactive oxycodone 10 mg tablet RxNorm: 0424320 1-2 Tablet(s) PO QID as n eeded for pain 04/21/2017 05/18/2017 Inactive Duragesic 100 mcg/hr transdermal patch RxNorm: 410923 2 Application TD Q48H for pain 04/21/2017 05/18/2017 Inactive fluoxetine 40 mg capsule RxNorm: 051475 Capsule(s) TAKE ONE CAPSULE BY MOUTH EVERY MORNING 04/20/2017 08/17/2017 Inactive Ventolin HFA 90 mcg/actuation aerosol inhaler RxNorm: 267419 2 Puff(s) INH Q4H as needed 04/05/2017 05/26/2017 Inactive Symbicort 160 mcg-4.5 mcg/actuation HFA aerosol inhaler RxNo rm: 1484177 2 Puff(s) INH BID 03/30/2017 04/15/2018 Inactive Spiriva with HandiHaler 18 mcg and inhalation capsules RxNor m: 167267 1 Capsule(s) INH QD USING HANDIHALER 03/30/2017 02/12/2019 Inactive Duragesic 100 mcg/hr transdermal patch RxNorm: 161552 2 Application TD Q48H for pain 03/18/2017 04/16/2017 Inactive oxycodone 10 mg tablet RxNorm: 4437847 1-2 Tablet(s) PO QID as n eeded for pain 03/18/2017 04/20/2017 Inactive metformin ER 500 mg tablet,extended release 24 hr RxNorm: 86 0975 Tablet(s) TAKE ONE TABLET BY MOUTH DAILY 03/01/2017 05/06/2017 Inactive Premarin 0.45 mg tablet RxNorm: 161227 Tablet(s) TAKE ONE TABLE T BY MOUTH DAILY 03/01/2017 05/06/2017 Inactive Synthroid 112 mcg tablet RxNorm: 701916 Tablet(s) TAKE ONE TABLET BY MOUTH DAILY 03/01/2017 05/06/2017 Inactive Daliresp 500 mcg tablet RxNorm: 4333211 1 Tablet(s) PO QD 03/01/2017 09/06/2017 Inactive 16.2 mg-0.1037 mg-0.0194 mg tablet RxNorm: 1086103 Tablet(s) PO PRN for gas and cramping 02/23/2017 04/28/2017 Inactive TAKE TWO TABLET S BY MOUTH THREE TIMES A DAY NEEDED FOR GAS AND CRAMPING gabapentin 800 mg tablet RxNorm: 883801 1 Tablet(s) PO TID repl aces 600mg 02/23/2017 04/28/2017 Inactive Duragesic 100 mcg/hr transdermal patch RxNorm: 813789 2 Application TD Q48H for pain 02/17/2017 03/17/2017 Inactive fluoxetine 20 mg capsule RxNorm: 749677 1 Capsule(s) PO QD 02/18/20 17 08/12/2017 Inactive oxycodone 20 mg tablet RxNorm: 8773359 1 Tablet(s) PO QID as nee ded for pain 02/17/2017 03/17/2017 Inactive Ventolin HFA 90 mcg/actuation aerosol inhaler RxNorm: 786232 INHALE TWO PUFFS BY MOUTH EVERY 4 HOURS NEEDED 02/15/2017 04/05/2017 Inactive Silvadene 1 % topical cream RxNorm: 321436 1 Application TOP BI D to burn area 02/01/2017 09/22/2017 Inactive Topamax 100 mg tablet RxNorm: 755901 TAKE ONE TABLET BY MOUTH EVERY NIGHT AT BEDTIME 01/29/2017 05/06/2017 Inactive Chantix Starting Month Box 0.5 mg (11)-1 mg (42) table ts in dose pack RxNorm: 833808 Tablet(s) PO as directed 01/29/2017 06/01/2017 Inactive Abilify 2 mg tablet RxNorm: 023302 TAKE ONE TABLET BY MOUTH DAILY 0 01/26/2017 04/25/2017 Inactive Chantix Starting Month Box 0.5 mg (11)-1 mg (42) table ts in dose pack RxNorm: 017497 Tablet(s) PO as directed 01/20/2017 01/28/2017 Inactive gabapentin 600 mg tablet RxNorm: 246411 1 Tablet(s) PO TID 01/21/20 17 02/22/2017 Inactive Chantix Continuing Month Box 1 mg tablet RxNorm: 001170 1 Table t(s) PO BID 12/31/2016 06/01/2017 Inactive Spiriva with HandiHaler 18 mcg and inhalation capsules RxNor m: 331005 INHALE THE ENTIRE CONTENTS OF 1 CAPSULE ONCE A DAY USING HANDIHALER 12/31/201607/2017 Inactive Synthroid 112 mcg tablet RxNorm: 607831 TAKE ONE TABLET BY MOUT H DAILY 12/30/2016 03/01/2017 Inactive metformin ER 500 mg tablet,extended release 24 hr RxNorm: 86 0975 TAKE ONE TABLET BY MOUTH DAILY 12/30/2016 03/01/2017 Inactive Premarin 0.45 mg tablet RxNorm: 416524 TAKE ONE TABLET BY MOUTH DAILY 12/30/2016 03/01/2017 Inactive omeprazole 40 mg capsule,delayed release RxNorm: 108862 TAKE ONE CAPSULE BY MOUTH DAILY 12/30/2016 01/25/2018 Inactive Ventolin HFA 90 mcg/actuation aerosol inhaler RxNorm: 435635 INHALE TWO PUFFS BY MOUTH EVERY 4 HOURS NEEDED 12/28/2016 02/13/2017 Inactive fluoxetine 40 mg capsule RxNorm: 178400 TAKE ONE CAPSULE BY BENOIT TH EVERY MORNING 12/15/2016 04/20/2017 Inactive Chantix Continuing Month Box 1 mg tablet RxNorm: 886524 TAKE ONE TABLET BY MOUTH TWICE A DAY 12/04/2016 12/31/2016 Inactive doxycycline hyclate 100 mg capsule RxNorm: 0159728 1 Capsule(s) PO BID 12/01/2016 12/07/2016 Inactive Levaquin 750 mg tablet RxNorm: 867487 1 Tablet(s) PO QD 12/01/2016 Inactive Abilify 2 mg tablet RxNorm: 874792 TAKE ONE TABLET BY MOUTH DAILY 0 11/25/2016 11/30/2016 Inactive Ventolin HFA 90 mcg/actuation aerosol inhaler RxNorm: 890786 INHALE TWO PUFFS BY MOUTH EVERY 4 HOURS NEEDED 11/02/2016 12/19/2016 Inactive Chantix Continuing Month Box 1 mg tablet RxNorm: 214794 Tablet(s) PO as directed 10/30/2016 12/03/2016 Inactive Symbicort 160 mcg-4.5 mcg/actuation HFA aerosol inhaler RxNo rm: 8275207 INHALE TWO PUFFS TWO TIMES A DAY 10/30/2016 03/30/2017 Inactive Abilify 2 mg tablet RxNorm: 376278 1 Tablet(s) PO QD 10/27/201611/24 Inactive amoxicillin 500 mg capsule RxNorm: 137565 1 Capsule(s) PO TID 10/1410/23/2016 Inactive amoxicillin 500 mg capsule RxNorm: 046174 1 Capsule(s) PO TID 10/1410/13/2016 Inactive Synthroid 112 mcg tablet RxNorm: 833311 TAKE ONE TABLET BY MOUT H DAILY 09/28/2016 12/29/2016 Inactive Topamax 100 mg tablet RxNorm: 780700 TAKE ONE TABLET BY MOUTH EVERY NIGHT AT BEDTIME 09/28/2016 01/28/2017 Inactive Premarin 0.45 mg tablet RxNorm: 061183 TAKE ONE TABLET BY MOUTH DAILY 09/28/2016 12/29/2016 Inactive metformin ER 500 mg tablet,extended release 24 hr RxNorm: 86 0975 TAKE ONE TABLET BY MOUTH DAILY 09/28/2016 12/29/2016 Inactive Ventolin HFA 90 mcg/actuation aerosol inhaler RxNorm: 746608 INHALE TWO PUFFS BY MOUTH EVERY 4 HOURS NEEDED 09/22/2016 10/23/2016 Inactive Pulmicort 1 mg/2 mL suspension for nebulization RxNorm: 6168 19 1 Unit Dose INH BID Dx: COPD (J44.9) 09/10/2016 08/16/2017 Inactive Pulmicort 1 mg/2 mL suspension for nebulization RxNorm: 6168 19 1 Unit Dose INH BID 09/10/2016 09/09/2016 Inactive Brovana 15 mcg/2 mL solution for nebulization RxNorm: 564952 1 Unit Dose INH BID Dx: COPD (J44.9) 09/10/2016 01/25/2018 Inactive Brovana 15 mcg/2 mL solution for nebulization RxNorm: 817106 1 Unit Dose INH BID 09/10/2016 09/09/2016 Inactive ipratropium-albuterol 0.5 mg-3 mg(2.5 mg base)/3 mL ne bulization soln RxNorm: 7735732 1 Unit Dose INH Q4H as needed Dx: COPD (J44.9) 09/10/2016 0 02/12/2019 Inactive orphenadrine citrate ER 100 mg tablet,extended release RxNor m: 470316 1 Tablet(s) PO BID for muscle spasm--replaces methocarbamol 09/09/2016 Inactive Chantix Continuing Month Box 1 mg tablet RxNorm: 312582 Tablet(s) PO as directed 09/09/2016 10/30/2016 Inactive orphenadrine citrate ER 100 mg tablet,extended release RxNor m: 612250 1 Tablet(s) PO BID for muscle spasm 09/09/2016 09/08/2016 Inactive Spiriva with HandiHaler 18 mcg and inhalation capsules RxNor m: 268076 INHALE THE ENTIRE CONTENTS OF 1 CAPSULE ONCE A DAY USING HANDIHALER 09/01/201605/2017 Inactive Daliresp 500 mcg tablet RxNorm: 8465451 1 Tablet(s) PO QD 08/27/2016 03/01/2017 Inactive prednisone 20 mg tablet RxNorm: 547274 3 Tablet(s) PO T ID for 3 days then 1 po BID for 3 days then one daily for 3 days 08/26/2016 04/28/2017 Inactiv e Wellbutrin XL 300 mg 24 hr tablet, extended release RxNorm: 911932 TAKE ONE TABLET BY MOUTH EVERY MORNING 07/29/2016 10/26/2016 Inactive gabapentin 600 mg tablet RxNorm: 071274 1 Tablet(s) PO BID 06/26/20 16 12/22/2016 Inactive fluoxetine 40 mg capsule RxNorm: 854291 TAKE ONE CAPSULE BY BENOIT TH EVERY MORNING 06/24/2016 11/20/2016 Inactive Duragesic 100 mcg/hr transdermal patch RxNorm: 157568 2 Application TD Q48H for pain 06/05/2016 07/04/2016 Inactive oxycodone 10 mg tablet RxNorm: 4504463 1-2 Tablet(s) PO QID as n eeded for pain 06/05/2016 03/17/2017 Inactive Belladonna-Phenobarbital 48 mg tablet,extended release RxNor m: 2 Tablet(s) PO TID 06/05/2016 01/19/2017 Inactive Premarin 0.45 mg tablet RxNorm: 686393 TAKE ONE TABLET BY MOUTH DAILY 05/27/2016 09/23/2016 Inactive Topamax 100 mg tablet RxNorm: 611990 TAKE ONE TABLET BY MOUTH EVERY NIGHT AT BEDTIME 05/27/2016 09/27/2016 Inactive Synthroid 112 mcg tablet RxNorm: 628449 TAKE ONE TABLET BY MOUT H DAILY 05/27/2016 09/23/2016 Inactive metformin ER 500 mg tablet,extended release 24 hr RxNorm: 86 0975 TAKE ONE TABLET BY MOUTH DAILY 05/27/2016 09/23/2016 Inactive Symbicort 160 mcg-4.5 mcg/actuation HFA aerosol inhaler RxNo rm: 0790537 INHALE TWO PUFFS TWO TIMES A DAY 05/27/2016 10/23/2016 Inactive Ventolin HFA 90 mcg/actuation aerosol inhaler RxNorm: 001841 INHALE TWO PUFFS BY MOUTH EVERY 4 HOURS NEEDED 05/21/2016 07/07/2016 Inactive omeprazole 40 mg capsule,delayed release RxNorm: 816985 1 Capsu le(s) PO QD 05/06/2016 08/03/2016 Inactive metformin ER 500 mg tablet,extended release 24 hr RxNorm: 86 0975 TAKE ONE TABLET BY MOUTH DAILY 04/23/2016 05/22/2016 Inactive methocarbamol 750 mg tablet RxNorm: 185461 2 Tablet(s) PO TID as needed for muscle spasm 04/23/2016 09/08/2016 Inactive Synthroid 112 mcg tablet RxNorm: 669535 TAKE ONE TABLET BY MOUT H DAILY 04/23/2016 05/22/2016 Inactive Spiriva with HandiHaler 18 mcg and inhalation capsules RxNor m: 437302 INHALE THE ENTIRE CONTENTS OF 1 CAPSULE ONCE A DAY USING HANDIHALER 04/09/201608/2016 Inactive Diflucan 100 mg tablet RxNorm: 105678 1 Tablet(s) PO QD 04/08/2016 Inactive doxycycline hyclate 100 mg capsule RxNorm: 8575128 1 Capsule(s) PO BID 04/08/2016 04/17/2016 Inactive doxycycline hyclate 100 mg capsule RxNorm: 0516484 1 Capsule(s) PO BID 04/08/2016 04/07/2016 Inactive Diflucan 100 mg tablet RxNorm: 429832 1 Tablet(s) PO QD 04/08/2016 Inactive ondansetron HCl 4 mg tablet RxNorm: 307348 1 Tablet(s) PO Q4H as needed for nausea and vomiting 04/08/2016 09/22/2017 Inactive gabapentin 600 mg tablet RxNorm: 926045 TAKE ONE TABLET BY MOUT H TWICE A DAY 03/24/2016 06/25/2016 Inactive Synthroid 112 mcg tablet RxNorm: 294927 TAKE ONE TABLET BY MOUT H DAILY 02/25/2016 04/22/2016 Inactive Levaquin 500 mg tablet RxNorm: 220789 1 Tablet(s) PO QD 01/23/2016 Inactive prednisone 20 mg tablet RxNorm: 726034 1 Tablet(s) PO T ID for 3 days then 1 po BID for 3 days then one daily for 3 days 01/23/2016 08/25/2016 Inactiv e Bubbli Ultra Test strips RxNorm: TEST BLOOD SUGAR ONCE DAILY 250.00 01/09/2016 11/04/2017 Inactive methocarbamol 750 mg tablet RxNorm: 091188 2 Tablet(s) PO TID as needed for muscle spasm 01/09/2016 04/23/2016 Inactive lactulose 10 gram/15 mL oral solution RxNorm: 425299 [address](s) PO QD 01/09/2016 09/22/2017 Inactive TAKE 1 TABLESPOON BY MOUTH ONCE DAILY metformin ER 500 mg tablet,extended release 24 hr RxNorm: 86 0975 1 Tablet(s) PO QD 12/26/2015 04/22/2016 Inactive fluoxetine 20 mg capsule RxNorm: 676822 1 Capsule(s) PO QD 12/23/19 16 06/19/2016 Inactive Premarin 0.45 mg tablet RxNorm: 282678 TAKE ONE TABLET BY MOUTH DAILY 12/23/2015 05/20/2016 Inactive fluoxetine 40 mg capsule RxNorm: 194056 1 Capsule(s) PO QD 12/23/19 16 06/19/2016 Inactive TAKE ONE CAPSULE BY MOUTH EV JANKI MORNING azithromycin 500 mg tablet RxNorm: 698195 1 Tablet(s) PO QD 12/19/2015 Inactive Zofran 4 mg tablet RxNorm: 900902 1 Tablet(s) PO Q4H prn nausea /vomiting 12/13/2015 03/30/2018 Inactive azithromycin 500 mg tablet RxNorm: 410658 1 Tablet(s) PO QD 12/12/2015 Inactive Duragesic 100 mcg/hr transdermal patch RxNorm: 452149 2 Application TD Q48H for pain 12/09/2015 01/07/2016 Inactive oxycodone 10 mg tablet RxNorm: 9592437 1-2 Tablet(s) PO QID as n eeded for pain 12/09/2015 06/04/2016 Inactive Bactroban 2 % topical cream RxNorm: 201473 Application TOP BID 11/2208/25/2016 Inactive doxycycline hyclate 100 mg capsule RxNorm: 0743782 1 Capsule(s) PO BID 12/03/2015 12/12/2015 Inactive Topamax 100 mg tablet RxNorm: 631206 TAKE ONE TABLET BY MOUTH EVERY NIGHT AT BEDTIME 11/25/2015 05/22/2016 Inactive Symbicort 160 mcg-4.5 mcg/actuation HFA aerosol inhaler RxNo rm: 4014941 INHALE TWO PUFFS TWO TIMES A DAY 11/25/2015 05/22/2016 Inactive Synthroid 112 mcg tablet RxNorm: 868080 Tablet(s) TAKE ONE TABLET BY MOUTH DAILY 11/25/2015 02/22/2016 Inactive omeprazole 40 mg capsule,delayed release RxNorm: 461656 1 Capsu le(s) PO QD 11/12/2015 05/05/2016 Inactive oxycodone 10 mg tablet RxNorm: 0443304 1-2 Tablet(s) PO QID as n eeded for pain 11/05/2015 12/08/2015 Inactive Duragesic 100 mcg/hr transdermal patch RxNorm: 586513 2 Application TD Q48H for pain 11/05/2015 12/04/2015 Inactive omeprazole 40 mg capsule,delayed release RxNorm: 568561 1 Capsu le(s) PO QD 10/07/2015 11/11/2015 Inactive Januvia 100 mg tablet RxNorm: 020985 TAKE ONE TABLET BY MOUTH DAILY 09/11/2015 12/25/2015 Inactive Zithromax 500 mg tablet RxNorm: 557993 1 Tablet(s) PO QD 09/10/2015 1 Inactive prednisone 20 mg tablet RxNorm: 095115 1 Tablet(s) PO T ID for 3 days then 1 po BID for 3 days then one daily for 3 days 09/10/2015 08/25/2016 Inactiv e Wellbutrin XL 300 mg 24 hr tablet, extended release RxNorm: 276833 1 Tablet(s) PO QAM 09/10/2015 12/02/2015 Inactive Topamax 100 mg tablet RxNorm: 127613 TAKE ONE TABLET BY MOUTH EVERY NIGHT AT BEDTIME 09/02/2015 11/24/2015 Inactive Synthroid 112 mcg tablet RxNorm: 884542 TAKE ONE TABLET BY MOUT H DAILY 09/02/2015 11/25/2015 Inactive methocarbamol 750 mg tablet RxNorm: 960410 2 Tablet(s) PO TID as needed for muscle spasm 08/15/2015 01/09/2016 Inactive Wellbutrin XL 150 mg 24 hr tablet, extended release RxNorm: 193883 TAKE ONE TABLET BY MOUTH EVERY MORNING 08/13/2015 08/13/2015 Inactive gabapentin 600 mg tablet RxNorm: 140632 1 Tablet(s) PO BID 08/13/20 15 02/08/2016 Inactive Wellbutrin XL 300 mg 24 hr tablet, extended release RxNorm: 752880 1 Tablet(s) PO QAM 08/06/2015 09/09/2015 Inactive Wellbutrin XL 150 mg 24 hr tablet, extended release RxNorm: 990387 1 Tablet(s) PO QAM 07/18/2015 08/05/2015 Inactive prednisone 20 mg tablet RxNorm: 164762 1 Tablet(s) PO BID 07/18/2015 07/22/2015 Inactive doxycycline hyclate 100 mg tablet,delayed release RxNorm: 43 4018 1 Tablet(s) PO BID 07/18/2015 07/27/2015 Inactive pravastatin 40 mg tablet RxNorm: 768463 1 Tablet(s) PO QD NEEDS FASTING LAB 07/15/2015 07/14/2015 Inactive pravastatin 40 mg tablet RxNorm: 513361 1 Tablet(s) PO QD NEEDS FASTING LAB 07/15/2015 01/25/2018 Inactive Ventolin HFA 90 mcg/actuation aerosol inhaler RxNorm: 726566 2 Puff(s) INH Q4H 07/08/2015 07/07/2015 Inactive prn Premarin 0.45 mg tablet RxNorm: 390403 1 Tablet(s) PO QD 07/01/2015 0 12/22/2015 Inactive pravastatin 40 mg tablet RxNorm: 418396 1 Tablet(s) PO QD NEEDS FASTING LAB 06/14/2015 07/15/2015 Inactive Ventolin HFA 90 mcg/actuation aerosol inhaler RxNorm: 6742018 2 Puff(s) INH Q4H 06/06/2015 07/08/2015 Inactive prn albuterol sulfate 2.5 mg/3 mL (0.083 %) solution for n ebulization RxNorm: 296143 1 Unit Dose INH QID 05/30/2015 No Stop Date Active Duragesic 100 mcg/hr transdermal patch RxNorm: 716261 2 Application TD Q48H for pain 04/29/2015 05/28/2015 Inactive gabapentin 600 mg tablet RxNorm: 717709 1 Tablet(s) PO BID 04/11/20 15 08/13/2015 Inactive Onglyza 5 mg tablet RxNorm: 012980 1 Tablet(s) PO QD for blood suga r 04/10/2015 04/15/2015 Inactive [Brand Copay Card: RxBIN:[id number] PCN:CRISTIANA RxGRP:[id number] ID#:[id number]] methocarbamol 750 mg tablet RxNorm: 010200 2 Tablet(s) PO TID as needed for muscle spasm 03/28/2015 08/15/2015 Inactive pravastatin 40 mg tablet RxNorm: 303214 1 Tablet(s) PO QD 03/19/2015 03/18/2015 Inactive pravastatin 40 mg tablet RxNorm: 806576 1 Tablet(s) PO QD 03/19/2015 06/14/2015 Inactive lactulose 10 gram/15 mL oral solution RxNorm: 485367 [address]s) PO QD 03/07/2015 01/09/2016 Inactive TAKE 1 TABLESPOON BY MOUTH ONCE DAILY oxycodone 20 mg tablet RxNorm: 1821263 1 Tablet(s) PO QID as nee ded for pain 03/05/2015 07/08/2015 Inactive Topamax 100 mg tablet RxNorm: 560910 1 Tablet(s) PO QHS TAKE ONE TABLET BY MOUTH AT BEDTIME 02/25/2015 02/12/2019 Inactive metformin ER 500 mg tablet,extended release 24 hr RxNorm: 86 0975 1 Tablet(s) PO QD 02/11/2015 03/04/2015 Inactive take one tablet by mouth every day Daliresp 500 mcg tablet RxNorm: 0572506 1 Tablet(s) PO QD 02/11/2015 08/09/2015 Inactive Endocet 10 mg-325 mg tablet RxNorm: 4548729 1 Tablet(s) PO Q4H as needed for pain 01/23/2015 01/23/2015 Inactive gabapentin 600 mg tablet RxNorm: 967878 1 Tablet(s) PO BID 01/23/20 15 04/11/2015 Inactive methocarbamol 750 mg tablet RxNorm: 989792 2 Tablet(s) PO TID as needed for muscle spasm 01/15/2015 02/13/2015 Inactive fluoxetine 40 mg capsule RxNorm: 231804 1 Capsule(s) PO QD 01/14/20 15 12/23/2015 Inactive TAKE ONE CAPSULE BY MOUTH EV JANKI MORNING fluoxetine 20 mg capsule RxNorm: 316894 1 Capsule(s) PO QD 01/14/20 15 12/23/2015 Inactive Premarin 0.45 mg tablet RxNorm: 511253 1 Tablet(s) PO QD 01/02/2015 0 07/01/2015 Inactive Endocet 10 mg-325 mg tablet RxNorm: 7662685 1-2 Tablet(s) PO Q4H 02/12/2019 Inactive PRN PAIN Duragesic 100 mcg/hr transdermal patch RxNorm: 836630 2 Application TD Q48H for pain 12/25/2014 01/23/2015 Inactive Topamax 100 mg tablet RxNorm: 355449 1 Tablet(s) PO QHS TAKE ONE TABLET BY MOUTH AT BEDTIME 12/25/2014 02/24/2015 Inactive Tudorza Pressair 400 mcg/actuation breath activated RxNorm: 7052785 1 BID INHALE ONE PUFF INTO LUNGS TWO TIMES A DAY 12/17/2014 05/15/2015 Inactive Endocet 10 mg-325 mg tablet RxNorm: 6734847 1-2 Tablet(s) PO Q4H 12/19/2014 Inactive PRN PAIN Duragesic 100 mcg/hr transdermal patch RxNorm: 563055 2 Application TD Q48H for pain 11/20/2014 12/24/2014 Inactive ProChon BiotechTouch Ultra Test strips RxNorm: TEST BLOOD SUGAR ONCE DAILY 250.00 11/16/2014 01/08/2016 Inactive omeprazole 40 mg capsule,delayed release RxNorm: 306773 1 Capsu le(s) PO QD 11/13/2014 11/12/2015 Inactive metformin ER 500 mg tablet,extended release 24 hr RxNorm: 86 0975 1 Tablet(s) PO QD 11/12/2014 02/11/2015 Inactive take one tablet by mouth every day Symbicort 160 mcg-4.5 mcg/actuation HFA aerosol inhaler RxNo rm: 6012911 2 Puff(s) INH BID 11/12/2014 03/11/2015 Inactive INHALE 2 PUFFS O RALLY TWO TIMES A DAY gabapentin 800 mg tablet RxNorm: 282421 1 Tablet(s) PO QD TAKE ONE TABLET BY MOUTH ONCE A DAY 10/22/2014 01/01/2015 Inactive Endocet 10 mg-325 mg tablet RxNorm: 9152775 1-2 Tablet(s) PO Q4H 11/15/2014 Inactive PRN PAIN Duragesic 100 mcg/hr transdermal patch RxNorm: 126802 2 Application TD Q48H for pain 10/17/2014 11/19/2014 Inactive gabapentin 800 mg tablet RxNorm: 374022 1 Tablet(s) PO QD TAKE ONE TABLET BY MOUTH ONCE A DAY 10/04/2014 10/21/2014 Inactive Premarin 0.9 mg tablet RxNorm: 397445 1 Tablet(s) PO QD TAKE ONE TABLET BY MOUTH ONCE A DAY 10/04/2014 01/01/2015 Inactive Spiriva with HandiHaler 18 mcg & inhalation capsules RxNorm: 927707 1 Capsule(s) INH QD 10/03/2014 04/30/2015 Inactive Levaquin 500 mg tablet RxNorm: 146846 1 Tablet(s) PO QD 10/03/2014 Inactive prednisone 20 mg tablet RxNorm: 637813 1 Tablet(s) PO QD 10/03/201412/09/2013 Inactive Duragesic 100 mcg/hr transdermal patch RxNorm: 018419 2 Application TD Q48H for pain 09/18/2014 10/16/2014 Inactive Endocet 10 mg-325 mg tablet RxNorm: 5252183 1-2 Tablet(s) PO Q4H 10/16/2014 Inactive PRN PAIN Synthroid 112 mcg tablet RxNorm: 633098 1 Tablet(s) QD 09/10/2014 Inactive Synthroid 112 mcg tablet RxNorm: 787759 TAKE ONE TABLET BY MOUTH ONE TIME A DAY. NEEDS LABS 09/10/2014 02/06/2015 Inactive omeprazole 40 mg capsule,delayed release RxNorm: 903749 1 Capsu le(s) PO QD 09/03/2014 11/13/2014 Inactive omeprazole 40 mg capsule,delayed release RxNorm: 388907 1 Capsu le(s) PO QD 09/03/2014 09/02/2014 Inactive Spiriva with HandiHaler 18 mcg & inhalation capsules RxNorm: 629237 1 Capsule(s) INH QD 08/27/2014 10/02/2014 Inactive gabapentin 600 mg tablet RxNorm: 642782 1 Tablet(s) PO BID 08/27/20 14 10/22/2014 Inactive Endocet 10 mg-325 mg tablet RxNorm: 9770990 1-2 Tablet(s) PO Q4H 09/17/2014 Inactive PRN PAIN fentanyl 100 mcg/hr transdermal patch RxNorm: 657546 1 Unit Dos e TD QD 08/21/2014 09/19/2014 Inactive Daliresp 500 mcg tablet RxNorm: 4459288 1 Tablet(s) PO QD 08/13/2014 02/11/2015 Inactive Synthroid 112 mcg tablet RxNorm: 382865 TAKE ONE TABLET BY MOUTH ONE TIME A DAY. NEEDS LABS 08/10/2014 09/10/2014 Inactive Endocet 10 mg-325 mg tablet RxNorm: 9412227 1-2 Tablet(s) PO Q4H 08/17/2014 Inactive PRN PAIN Duragesic 100 mcg/hr transdermal patch RxNorm: 678304 2 Application TD Q48H for pain 07/19/2014 09/17/2014 Inactive fluoxetine 40 mg capsule RxNorm: 396791 1 Capsule(s) PO QD 07/17/20 14 01/14/2015 Inactive TAKE ONE CAPSULE BY MOUTH EV JANKI MORNING fluoxetine 20 mg capsule RxNorm: 552095 1 Capsule(s) PO QD 07/17/20 14 01/14/2015 Inactive Spiriva with HandiHaler 18 mcg & inhalation capsules RxNorm: 266634 1 Capsule(s) INH QD 07/17/2014 08/26/2014 Inactive INHALE CONTENTS OF 1 CAPSULE(S) WITH HANDIHALER ONCE DAILY Zofran 4 mg tablet RxNorm: 828680 1 Tablet(s) PO Q4H prn nausea 07/25/2014 Inactive Synthroid 112 mcg tablet RxNorm: 616158 1 Tablet(s) PO QD 07/09/2014 07/09/2014 Inactive methocarbamol 750 mg tablet RxNorm: 006644 2 Tablet(s) PO TID as needed for muscle spasm 07/09/2014 09/06/2014 Inactive Synthroid 112 mcg tablet RxNorm: 029989 1 Tablet(s) PO QD - nee d labs 07/09/2014 08/07/2014 Inactive Medrol (Aníbal) 4 mg tablets in a dose pack RxNorm: 143606 6 Tablet(s) PO QD --then as directed 07/03/2014 07/08/2014 Inactive Tudorza Pressair 400 mcg/actuation breath activated RxNorm: 7783556 1 Puff(s) INH BID 07/03/2014 12/17/2014 Inactive cefdinir 300 mg capsule RxNorm: 130428 1 Capsule(s) PO BID 07/03/20 14 07/12/2014 Inactive Topamax 100 mg tablet RxNorm: 914247 Tablet(s) TAKE ONE TABLET BY MOUTH AT BEDTIME 07/02/2014 02/25/2015 Inactive Duragesic 100 mcg/hr transdermal patch RxNorm: 222015 2 Application TD Q48H for pain 06/25/2014 07/18/2014 Inactive Endocet 10 mg-325 mg tablet RxNorm: 0070940 1-2 Tablet(s) PO Q4H 07/18/2014 Inactive PRN PAIN metformin ER 500 mg tablet,extended release 24 hr RxNorm: 86 0975 1 Tablet(s) PO QD Needs labs 06/18/2014 07/01/2014 Inactive take one tablet by mouth every day Duragesic 100 mcg/hr transdermal patch RxNorm: 407802 2 Application TD Q48H for pain 05/22/2014 06/24/2014 Inactive Synthroid 112 mcg tablet RxNorm: 615130 1 Tablet(s) PO QD 05/22/2014 07/09/2014 Inactive Endocet 10 mg-325 mg tablet RxNorm: 9130710 1-2 Tablet(s) PO Q4H 06/20/2014 Inactive PRN PAIN Endocet 10 mg-325 mg tablet RxNorm: 1415781 1-2 Tablet(s) PO Q4H 05/21/2014 Inactive PRN PAIN Duragesic 100 mcg/hr transdermal patch RxNorm: 422109 2 Application TD Q48H for pain 04/25/2014 05/21/2014 Inactive Daliresp 500 mcg tablet RxNorm: 8092327 1 Tablet(s) PO QD 04/24/2014 08/13/2014 Inactive Symbicort 160 mcg-4.5 mcg/actuation HFA aerosol inhaler RxNo rm: 8969658 2 Puff(s) INH BID 04/24/2014 08/21/2014 Inactive INHALE 2 PUFFS O RALLY TWO TIMES A DAY metformin ER 500 mg tablet,extended release 24 hr RxNorm: 86 0975 1 Tablet(s) PO QD 04/24/2014 11/12/2014 Inactive TAKE ONE TABLET BY MOUTH EVERY DAY [AttnRPh:Saving Apply/Adjudicate RxGRP:LDMGRP RxBIN:[id number] RxPCN:2012 PCode:01 ID#:[id number]] Symbicort 160 mcg-4.5 mcg/actuation HFA aerosol inhaler RxNo rm: 2673060 2 Puff(s) INH BID 04/24/2014 11/12/2014 Inactive INHALE 2 PUFFS O RALLY TWO TIMES A DAY Premarin 0.9 mg tablet RxNorm: 154770 1 Tablet(s) PO QD 04/24/2014 Inactive TAKE ONE TABLET BY MOUTH EVERY DAY metformin ER 500 mg tablet,extended release 24 hr RxNorm: 86 0975 1 Tablet(s) PO QD Needs labs 04/24/2014 06/18/2014 Inactive TAKE ONE TABLET BY MOUTH EVERY DAY [AttnRPh:Saving Apply/Adjudicate RxGRP:LDMGRP RxBIN:[id number] RxPCN:2012 PCode:01 ID#:[id number]] gabapentin 800 mg tablet RxNorm: 147407 1 Tablet(s) PO QD 04/24/2014 10/04/2014 Inactive TAKE ONE TABLET BY MOUTH EVERY DAY Topamax 100 mg tablet RxNorm: 811902 1 Tablet(s) PO QHS 04/17/2014 Inactive Topamax 100 mg tablet RxNorm: 501765 TAKE ONE TABLET BY MOUTH A T BEDTIME 04/17/2014 07/01/2014 Inactive Tudorza Pressair 400 mcg/actuation breath activated RxNorm: 0222093 1 Puff(s) INH BID 04/11/2014 07/02/2014 Inactive Duragesic 100 mcg/hr transdermal patch RxNorm: 504717 2 Application TD Q48H for pain 03/27/2014 04/24/2014 Inactive Endocet 10 mg-325 mg tablet RxNorm: 5628993 1-2 Tablet(s) PO Q4H 04/24/2014 Inactive PRN PAIN Robaxin 750 mg tablet RxNorm: 995507 2 Tablet(s) PO TID as need ed for spasm 02/23/2014 03/28/2015 Inactive Duragesic 100 mcg/hr transdermal patch RxNorm: 234771 2 Application TD Q48H for pain 02/23/2014 No Stop Date Active Endocet 10 mg-325 mg tablet RxNorm: 1772422 1-2 Tablet(s) PO Q4H 03/23/2014 Inactive PRN PAIN Synthroid 112 mcg tablet RxNorm: 076596 1 Tablet(s) PO QD TAKE ONE TABLET BY MOUTH EVERY DAY 02/15/2014 05/22/2014 Inactive Zithromax 500 mg tablet RxNorm: 084986 1 Tablet(s) PO QD 01/30/2014 0 02/05/2014 Inactive Diflucan 100 mg tablet RxNorm: 679369 1 Tablet(s) PO QD 01/30/2014 Inactive prednisone 20 mg tablet RxNorm: 033478 1 Tablet(s) PO BID 01/30/2014 02/05/2014 Inactive fluoxetine 40 mg capsule RxNorm: 377163 1 Capsule(s) PO QD 01/23/20 14 07/16/2014 Inactive TAKE ONE CAPSULE BY MOUTH EV JANKI MORNING fluoxetine 40 mg capsule RxNorm: 502967 1 Capsule(s) PO QD 01/23/20 14 07/17/2014 Inactive TAKE ONE CAPSULE BY MOUTH EV JANKI MORNING cefdinir 300 mg capsule RxNorm: 118094 1 Capsule(s) PO BID 01/16/20 14 01/29/2014 Inactive Zithromax 500 mg tablet RxNorm: 625358 1 Tablet(s) PO QD 01/16/2014 0 01/22/2014 Inactive prednisone 20 mg tablet RxNorm: 950312 1 Tablet(s) PO BID 01/16/2014 01/22/2014 Inactive Spiriva with HandiHaler 18 mcg and inhalation capsules RxNor m: 875332 1 Capsule(s) INH QD 12/18/2013 07/17/2014 Inactive INHALE CONTENT S OF 1 CAPSULE(S) WITH HANDIHALER ONCE DAILY fluoxetine 20 mg capsule RxNorm: 411330 1 Capsule(s) PO QD 12/18/19 14 06/15/2014 Inactive Spiriva with HandiHaler 18 mcg & inhalation capsules RxNorm: 080942 1 Capsule(s) INH QD 12/18/2013 06/15/2014 Inactive INHALE CONTENTS OF 1 CAPSULE(S) WITH HANDIHALER ONCE DAILY fluoxetine 20 mg capsule RxNorm: 277913 1 Capsule(s) PO QD 12/18/19 14 07/17/2014 Inactive cefdinir 300 mg capsule RxNorm: 845197 2 Capsule(s) PO QD 12/12/2013 12/21/2013 Inactive Duragesic 100 mcg/hr transdermal patch RxNorm: 260526 2 Application TD Q48H for pain 12/08/2013 12/07/2013 Inactive Topamax 100 mg tablet RxNorm: 220963 1 Tablet(s) PO QHS 12/04/2013 Inactive Endocet 10 mg-325 mg tablet RxNorm: 8767719 1-2 Tablet(s) PO Q4H 12/26/2013 Inactive PRN PAIN Robaxin 750 mg tablet RxNorm: 874196 2 Tablet(s) PO TID as need ed for spasm 11/07/2013 01/05/2014 Inactive gabapentin 800 mg tablet RxNorm: 331407 1 Tablet(s) PO QD 10/16/2013 04/24/2014 Inactive TAKE ONE TABLET BY MOUTH EVERY DAY Symbicort 160 mcg-4.5 mcg/actuation HFA aerosol inhaler RxNo rm: 2063354 2 Puff(s) INH BID 10/16/2013 04/24/2014 Inactive INHALE 2 PUFFS O RALLY TWO TIMES A DAY Premarin 0.9 mg tablet RxNorm: 512527 1 Tablet(s) PO QD 10/16/2013 Inactive TAKE ONE TABLET BY MOUTH EVERY DAY metformin ER 500 mg tablet,extended release 24 hr RxNorm: 86 0975 1 Tablet(s) PO QD 10/16/2013 04/24/2014 Inactive TAKE ONE TABLET BY MOUTH EVERY DAY Daliresp 500 mcg tablet RxNorm: 0048498 1 Tablet(s) PO QD 10/16/2013 04/24/2014 Inactive Robaxin 750 mg tablet RxNorm: 547980 2 Tablet(s) PO TID as need ed for spasm 10/10/2013 11/06/2013 Inactive Duragesic 100 mcg/hr transdermal patch RxNorm: 456015 2 Application TD Q48H for pain 10/09/2013 No Stop Date Active Soma 350 mg tablet RxNorm: 727052 1 Tablet(s) PO TID 09/27/201310/09 Inactive TAKE ONE TABLET BY MOUTH THREE TIMES A D AY lactulose 10 gram/15 mL oral solution RxNorm: 380166 [address](s) PO QD 09/13/2013 03/07/2015 Inactive TAKE 1 TABLESPOON BY MOUTH ONCE DAILY Duragesic 100 mcg/hr transdermal patch RxNorm: 102136 2 Application TD Q48H for pain 09/06/2013 No Stop Date Active Endocet 10 mg-325 mg tablet RxNorm: 1119668 1-2 Tablet(s) PO Q4H 09/27/2013 Inactive PRN PAIN lancets 28 gauge RxNorm: Miscellaneous As needed for blo od glucose sticks 08/24/2013 No Stop Date Active 16.2 mg-0.1037 mg-0.0194 mg tablet RxNorm: 9087890 Tablet(s) PO PRN for gas and cramping 08/24/2013 01/19/2017 Inactive TAKE TWO TABLET S BY MOUTH THREE TIMES A DAY NEEDED FOR GAS AND CRAMPING Topamax 100 mg tablet RxNorm: 571393 1 Tablet(s) PO QHS 07/31/2013 Inactive Diflucan 100 mg tablet RxNorm: 137833 1 Tablet(s) PO QD 07/27/2013 Inactive cefdinir 300 mg capsule RxNorm: 928737 1 Capsule(s) PO BID 07/26/20 13 08/08/2013 Inactive Daliresp 500 mcg tablet RxNorm: 8992271 1 Tablet(s) PO QD 07/25/2013 10/15/2013 Inactive fluoxetine 40 mg capsule RxNorm: 912044 1 Capsule(s) PO QD 07/25/20 13 01/22/2014 Inactive TAKE ONE CAPSULE BY MOUTH EV JANKI MORNING Senokot-S 8.6 mg-50 mg tablet RxNorm: 6140848 1 Tablet(s) PO BID 10/25/2013 Inactive doxycycline hyclate 100 mg capsule RxNorm: 2676114 1 Capsule(s) PO BID 06/28/2013 07/07/2013 Inactive prednisone 20 mg tablet RxNorm: 075493 1 Tablet(s) PO BID 06/28/2013 07/04/2013 Inactive Zofran 4 mg tablet RxNorm: 869264 1 Tablet(s) PO Q4H prn nausea 03/201307/05/2013 Inactive Spiriva with HandiHaler 18 mcg & inhalation capsules RxNorm: 208807 1 Capsule(s) INH QD 06/26/2013 12/18/2013 Inactive INHALE CONTENTS OF 1 CAPSULE(S) WITH HANDIHALER ONCE DAILY Synthroid 112 mcg tablet RxNorm: 808439 1 Tablet(s) PO QD TAKE ONE TABLET BY MOUTH EVERY DAY 06/19/2013 02/15/2014 Inactive fluoxetine 20 mg capsule RxNorm: 605333 1 Capsule(s) PO QD 06/19/20 13 12/18/2013 Inactive Ventolin HFA 90 mcg/actuation Aerosol Inhaler RxNorm: 1968895 2 Puff(s) INH Q4H 06/05/2013 No Stop Date Active prn Soma 350 mg tablet RxNorm: 010002 1 Tablet(s) PO TID 06/05/201307/04 Inactive TAKE ONE TABLET BY MOUTH THREE TIMES A D AY prednisone 20 mg tablet RxNorm: 214419 1 Tablet(s) PO QD 05/31/2013 0 06/06/2013 Inactive Topamax 100 mg tablet RxNorm: 761367 1 Tablet(s) PO QHS 05/22/2013 Inactive Levaquin 500 mg tablet RxNorm: 424954 1 Tablet(s) PO QD 05/03/2013 Inactive Diflucan 100 mg tablet RxNorm: 177509 1 Tablet(s) PO QD 05/03/2013 Inactive Daliresp 500 mcg tablet RxNorm: 0058534 1 Tablet(s) PO QD 05/01/2013 07/24/2013 Inactive Daliresp 500 mcg tablet RxNorm: 3370601 1 Tablet(s) PO QD 05/01/2013 04/30/2013 Inactive gabapentin 800 mg tablet RxNorm: 905330 1 Tablet(s) PO QD 04/10/2013 10/06/2013 Inactive TAKE ONE TABLET BY MOUTH EVERY DAY metformin ER 500 mg tablet,extended release 24 hr RxNorm: 86 0977 1 Tablet(s) PO QD 04/10/2013 10/06/2013 Inactive TAKE ONE TABLET BY MOUTH EVERY DAY Premarin 0.9 mg tablet RxNorm: 130212 1 Tablet(s) PO QD 04/10/2013 Inactive TAKE ONE TABLET BY MOUTH EVERY DAY Symbicort 160 mcg-4.5 mcg/actuation HFA aerosol inhaler RxNo rm: 1108475 2 Puff(s) INH BID 04/10/2013 10/06/2013 Inactive INHALE 2 PUFFS O RALLY TWO TIMES A DAY Synthroid 112 mcg tablet RxNorm: 823661 1 Tablet(s) PO QD TAKE ONE TABLET BY MOUTH EVERY DAY 04/10/2013 06/18/2013 Inactive Ventolin HFA 90 mcg/actuation Aerosol Inhaler RxNorm: 6352063 2 Puff(s) INH Q4H 04/10/2013 No Stop Date Active prn fentanyl 100 mcg/hr transdermal patch RxNorm: 544375 1 Unit Dos e TD QD 04/03/2013 05/02/2013 Inactive Endocet 10 mg-325 mg tablet RxNorm: 6937024 1-2 Tablet(s) PO Q4H 05/02/2013 Inactive PRN PAIN Topamax 100 mg tablet RxNorm: 835755 1 Tablet(s) PO QHS 03/13/2013 Inactive Reglan 10 mg tablet RxNorm: 975616 1 Tablet(s) PO QID b efore meals and at bedtime 03/13/2013 04/09/2015 Inactive fluoxetine 20 mg capsule RxNorm: 203160 1 Capsule(s) PO QD 02/28/20 13 05/27/2013 Inactive Ventolin HFA 90 mcg/actuation Aerosol Inhaler RxNorm: 7319985 2 Puff(s) INH Q4H 02/13/2013 No Stop Date Active prn fluoxetine 40 mg capsule RxNorm: 866521 1 Capsule(s) PO QD 01/31/20 13 07/24/2013 Inactive TAKE ONE CAPSULE BY MOUTH EV JANKI MORNING Soma 350 mg tablet RxNorm: 079925 1 Tablet(s) PO TID 01/20/201302/18 Inactive TAKE ONE TABLET BY MOUTH THREE TIMES A D AY Endocet 10 mg-325 mg tablet RxNorm: 9327733 1-2 Tablet(s) PO Q4H 02/06/2013 Inactive PRN PAIN MS Contin 200 mg tablet,extended release RxNorm: 251791 1 Table t(s) PO BID 01/18/2013 02/06/2013 Inactive Ventolin HFA 90 mcg/actuation Aerosol Inhaler RxNorm: 1841722 2 Puff(s) INH Q4H 01/04/2013 No Stop Date Active prn Spiriva with HandiHaler 18 mcg & inhalation capsules RxNorm: 944278 1 Capsule(s) INH QD 12/29/2012 06/25/2013 Inactive INHALE CONTENTS OF 1 CAPSULE(S) WITH HANDIHALER ONCE DAILY Spiriva with HandiHaler 18 mcg & inhalation capsules RxNorm: 873446 1 Capsule(s) INH QD 12/26/2012 12/28/2012 Inactive INHALE CONTENTS OF 1 CAPSULE(S) WITH HANDIHALER ONCE DAILY Synthroid 112 mcg tablet RxNorm: 444610 Tablet(s) PO TA KE ONE TABLET BY MOUTH EVERY DAY 12/26/2012 04/09/2013 Inactive Endocet 10 mg-325 mg tablet RxNorm: 3534288 1-2 Tablet(s) PO Q4H 01/17/2013 Inactive PRN PAIN MS Contin 200 mg tablet,extended release RxNorm: 216174 1 Table t(s) PO BID 12/21/2012 01/17/2013 Inactive fluoxetine 20 mg capsule RxNorm: 513458 1 Capsule(s) PO QD 12/06/19 13 02/26/2013 Inactive Synthroid 112 mcg tablet RxNorm: 267249 1 Tablet(s) PO QD 12/06/2012 02/12/2019 Inactive TAKE ONE TABLET BY MOUTH EVERY DAY Ventolin HFA 90 mcg/actuation Aerosol Inhaler RxNorm: 7660566 2 Puff(s) INH Q4H 12/06/2012 No Stop Date Active prn Reglan 10 mg tablet RxNorm: 694109 1 Tablet(s) PO QID b efore meals and at bedtime 11/24/2012 03/12/2013 Inactive Topamax 100 mg tablet RxNorm: 772635 1 Tablet(s) PO QHS 11/16/2012 Inactive Ventolin HFA 90 mcg/actuation Aerosol Inhaler RxNorm: 1348048 2 Puff(s) INH Q4H 11/09/2012 No Stop Date Active prn gabapentin 800 mg tablet RxNorm: 944136 1 Tablet(s) PO QD 10/27/2012 04/09/2013 Inactive TAKE ONE TABLET BY MOUTH EVERY DAY metformin ER 500 mg tablet,extended release 24 hr RxNorm: 86 0977 1 Tablet(s) PO QD 10/27/2012 04/09/2013 Inactive TAKE ONE TABLET BY MOUTH EVERY DAY Symbicort 160 mcg-4.5 mcg/actuation HFA Aerosol Inhaler RxNo rm: 2146725 2 Puff(s) INH BID 10/27/2012 04/09/2013 Inactive INHALE 2 PUFFS O RALLY TWO TIMES A DAY Premarin 0.9 mg tablet RxNorm: 573021 1 Tablet(s) PO QD 10/27/2012 Inactive TAKE ONE TABLET BY MOUTH EVERY DAY Endocet 10 mg-325 mg tablet RxNorm: 5835258 1-2 Tablet(s) PO Q4H 11/24/2012 Inactive PRN PAIN MS Contin 200 mg tablet,extended release RxNorm: 099384 1 Table t(s) PO BID 10/26/2012 11/24/2012 Inactive Soma 350 mg tablet RxNorm: 643168 1 Tablet(s) PO TID 10/04/201211/02 Inactive TAKE ONE TABLET BY MOUTH THREE TIMES A D AY Ventolin HFA 90 mcg/actuation Aerosol Inhaler RxNorm: 1702976 2 Puff(s) INH Q4H 10/03/2012 No Stop Date Active prn Daliresp 500 mcg tablet RxNorm: 3586288 1 Tablet(s) PO QD 09/28/2012 09/27/2012 Inactive Daliresp 500 mcg tablet RxNorm: 5190558 1 Tablet(s) PO QD 09/28/2012 04/25/2013 Inactive fluoxetine 20 mg capsule RxNorm: 889574 1 Capsule(s) PO QD 09/05/2012/06/2012 Inactive Topamax 50 mg tablet RxNorm: 149253 Tablet(s) PO for 1w k then 1 po q HS for 1wk then 2 po q HS 08/29/2012 09/27/2012 Inactive TAKE 1/2 TABLET BY MOUTH AT BEDTIME FOR 1 WEEK, THEN 1 TABLET AT BEDTIME FOR 1 WEEK, THEN 2 TABLETS AT BEDTIME Topamax 100 mg tablet RxNorm: 704081 1 Tablet(s) PO QHS 08/29/2012 Inactive Ventolin HFA 90 mcg/actuation Aerosol Inhaler RxNorm: 1539753 2 Puff(s) INH Q4H 08/19/2012 No Stop Date Active prn Ventolin HFA 90 mcg/actuation Aerosol Inhaler RxNorm: 9007745 2 Puff(s) INH Q4H 08/15/2012 No Stop Date Active prn Synthroid 112 mcg tablet RxNorm: 136735 1 Tablet(s) PO QD 08/10/2012 11/07/2012 Inactive TAKE ONE TABLET BY MOUTH EVERY DAY Synthroid 112 mcg tablet RxNorm: 490707 1 Tablet(s) PO QD 08/01/2012 08/09/2012 Inactive TAKE ONE TABLET BY MOUTH EVERY DAY Reglan 10 mg tablet RxNorm: 300972 1 Tablet(s) PO QID b efore meals and at bedtime 08/01/2012 11/23/2012 Inactive fluoxetine 40 mg capsule RxNorm: 688513 1 Capsule(s) PO QD 08/01/20 12 01/27/2013 Inactive TAKE ONE CAPSULE BY MOUTH EV JANKI MORNING Ventolin HFA 90 mcg/actuation Aerosol Inhaler RxNorm: 8660504 2 Puff(s) INH Q4H 08/01/2012 No Stop Date Active prn Soma 350 mg tablet RxNorm: 276403 1 Tablet(s) PO TID 07/20/201208/18 Inactive TAKE ONE TABLET BY MOUTH THREE TIMES A D AY Spiriva with HandiHaler 18 mcg & inhalation capsules RxNorm: 059799 1 Capsule(s) INH 07/01/2012 12/25/2012 Inactive INHALE CONTENTS OF 1 CAPSULE(S) WITH HANDIHALER ONCE DAILY Zithromax 250 mg Tab RxNorm: 955458 2 Tablet(s) PO QD 06/28/201206/22 Inactive MS Contin 200 mg tablet,extended release RxNorm: 777411 1 Table t(s) PO BID 06/28/2012 07/27/2012 Inactive Endocet 10 mg-325 mg tablet RxNorm: 7643106 1-2 Tablet(s) PO Q4H 07/27/2012 Inactive PRN PAIN Topamax 100 mg tablet RxNorm: 237474 1 Tablet(s) PO QHS 06/28/2012 Inactive 16.2 mg-0.1037 mg-0.0194 mg tablet RxNorm: 8010307 Tablet(s) PO PRN for gas and cramping 06/08/2012 08/23/2013 Inactive TAKE TWO TABLET S BY MOUTH THREE TIMES A DAY NEEDED FOR GAS AND CRAMPING Ventolin HFA 90 mcg/actuation Aerosol Inhaler RxNorm: 5019179 2 Puff(s) INH Q4H 05/23/2012 No Stop Date Active prn Ventolin HFA 90 mcg/actuation Aerosol Inhaler RxNorm: 2729902 2 Puff(s) INH Q4H 05/11/2012 No Stop Date Active prn Synthroid 112 mcg tablet RxNorm: 272374 1 Tablet(s) PO QD 05/09/2012 07/31/2012 Inactive TAKE ONE TABLET BY MOUTH EVERY DAY gabapentin 800 mg tablet RxNorm: 523960 1 Tablet(s) PO QD 05/09/2012 10/26/2012 Inactive TAKE ONE TABLET BY MOUTH EVERY DAY fluoxetine 40 mg capsule RxNorm: 054687 1 Capsule(s) PO QD 05/09/2007/31/2012 Inactive TAKE ONE CAPSULE BY MOUTH EV JANKI MORNING metformin ER 500 mg tablet,extended release 24 hr RxNorm: 86 0977 1 Tablet(s) PO QD 05/09/2012 10/26/2012 Inactive TAKE ONE TABLET BY MOUTH EVERY DAY Premarin 0.9 mg tablet RxNorm: 544296 1 Tablet(s) PO QD 05/09/2012 Inactive TAKE ONE TABLET BY MOUTH EVERY DAY Symbicort 160 mcg-4.5 mcg/actuation HFA Aerosol Inhaler RxNo rm: 4676363 2 Puff(s) INH BID 05/09/2012 10/26/2012 Inactive INHALE 2 PUFFS O RALLY TWO TIMES A DAY Endocet 10 mg-325 mg Tab RxNorm: 7664174 1-2 Tablet(s) PO Q4H 04/2705/26/2012 Inactive PRN PAIN MS Contin 200 mg Tab RxNorm: 154920 1 Tablet(s) PO BID 04/26/201202/2012 Inactive Ventolin HFA 90 mcg/actuation Aerosol Inhaler RxNorm: 4452977 2 Puff(s) INH Q4H 04/25/2012 05/10/2012 Inactive prn Soma 350 mg tablet RxNorm: 146778 2 Tablet(s) PO TID 04/19/201207/19 Inactive TAKE ONE TABLET BY MOUTH THREE TIMES A D AY Ventolin HFA 90 mcg/actuation Aerosol Inhaler RxNorm: 0850981 2 Puff(s) INH Q4H 04/12/2012 04/24/2012 Inactive prn Reglan 10 mg tablet RxNorm: 975179 1 Tablet(s) PO QID b efore meals and at bedtime 04/11/2012 07/31/2012 Inactive MS Contin 200 mg Tab RxNorm: 566918 1 Tablet(s) PO BID 03/30/201202/2012 Inactive Endocet 10 mg-325 mg Tab RxNorm: 9290909 1-2 Tablet(s) PO Q4H 03/3004/26/2012 Inactive PRN PAIN MS Contin 200 mg Tab RxNorm: 386463 1 Tablet(s) PO BID 03/02/201206/2012 Inactive Endocet 10 mg-325 mg Tab RxNorm: 5713236 1-2 Tablet(s) PO Q4H 03/0203/29/2012 Inactive PRN PAIN Daliresp 500 mcg tablet RxNorm: 8108163 1 Tablet(s) PO QD 03/01/2012 09/28/2012 Inactive MS Contin 200 mg Tab RxNorm: 815419 1 Tablet(s) PO BID 02/02/201208/2012 Inactive Endocet 10 mg-325 mg Tab RxNorm: 0090901 1-2 Tablet(s) PO Q4H 02/0103/01/2012 Inactive PRN PAIN fluoxetine 40 mg capsule RxNorm: 044943 1 Capsule(s) PO QD 02/02/2008/01/2012 Inactive TAKE ONE CAPSULE BY MOUTH EV JANKI MORNING Synthroid 112 mcg Tab RxNorm: 232617 1 Tablet(s) PO QD 01/18/2012 Inactive TAKE ONE TABLET BY MOUTH EVERY DAY lactulose 10 gram/15 mL oral solution RxNorm: 896152 [address]s) PO QD 01/18/2012 No Stop Date Active TAKE 1 TABLESPOON BY MOUTH ONCE DAILY Ventolin HFA 90 mcg/actuation Aerosol Inhaler RxNorm: 4126947 2 Puff(s) INH Q4H 01/18/2012 04/11/2012 Inactive prn MS Contin 200 mg Tab RxNorm: 561194 1 Tablet(s) PO BID 01/05/201210/2012 Inactive Endocet 10 mg-325 mg Tab RxNorm: 1885073 1-2 Tablet(s) PO Q4H 01/0502/01/2012 Inactive PRN PAIN ProAir HFA 90 mcg/Actuation Aerosol Inhaler RxNorm: 8822454 2 Pu ff(s) INH Q4H 12/21/2011 No Stop Date Active prn for wheezing or shortness of breath Spiriva with HandiHaler 18 mcg & inhalation Caps RxNorm: 580 261 1 Capsule(s) INH 12/21/2011 06/30/2012 Inactive INHALE CONTENTS OF 1 CAPSULE(S) WITH HANDIHALER ONCE DAILY Reglan 10 mg Tab RxNorm: 945454 1 Tablet(s) PO QID before meals and at bedtime 12/21/2011 04/10/2012 Inactive Synthroid 112 mcg Tab RxNorm: 122337 1 Tablet(s) PO QD 12/21/2011 Inactive TAKE ONE TABLET BY MOUTH EVERY DAY Endocet 10 mg-325 mg Tab RxNorm: 3314911 1-2 Tablet(s) PO Q4H 11/2512/24/2011 Inactive PRN PAIN MS Contin 200 mg Tab RxNorm: 859680 1 Tablet(s) PO BID 11/25/201112/2011 Inactive lactulose 10 gram/15 mL Oral Soln RxNorm: 976616 Milliliter(s) PO 1 No Stop Date Active TAKE 1 TABLESPOON BY MOUTH O NCE DAILY lactulose 10 gram/15 mL Oral Soln RxNorm: 631266 Milliliter(s) PO 1 12/12/2010 11/20/2011 Inactive TAKE 1 TABLESPOON BY MOUTH O NCE DAILY Premarin 0.9 mg Tab RxNorm: 435294 1 Tablet(s) PO QD 10/12/201105/08 Inactive TAKE ONE TABLET BY MOUTH EVERY DAY fluoxetine 20 mg capsule RxNorm: 473076 1 Capsule(s) PO QD 10/12/20 11 09/05/2012 Inactive TAKE ONE CAPSULE BY MOUTH EV JANKI DAY Synthroid 112 mcg Tab RxNorm: 775308 1 Tablet(s) PO QD 10/12/2011 Inactive TAKE ONE TABLET BY MOUTH EVERY DAY metformin ER 500 mg 24 hr Tab RxNorm: 534077 1 Tablet(s) PO QD 09/2311/10/2011 Inactive TAKE ONE TABLET BY MOUTH GLYNN RY DAY Synthroid 112 mcg Tab RxNorm: 973917 1 Tablet(s) PO QD 10/12/2011 Inactive TAKE ONE TABLET BY MOUTH EVERY DAY metformin ER 500 mg 24 hr Tab RxNorm: 133627 1 Tablet(s) PO QD 09/2310/11/2011 Inactive TAKE ONE TABLET BY MOUTH GLYNN RY DAY Prevacid 30 mg Cap RxNorm: 039592 Capsule(s) PO 10/12/2011 01/25/2012 Inactive TAKE ONE CAPSULE BY MOUTH EVERY DAY Symbicort 160 mcg-4.5 mcg/actuation HFA Aerosol Inhaler RxNo rm: 4490989 2 Puff(s) INH BID 10/12/2011 05/08/2012 Inactive INHALE 2 PUFFS O RALLY TWO TIMES A DAY gabapentin 800 mg Tab RxNorm: 712087 1 Tablet(s) PO QD 10/12/2011 Inactive TAKE ONE TABLET BY MOUTH EVERY DAY MS Contin 200 mg Tab RxNorm: 480637 1 Tablet(s) PO BID 09/23/201111/2010 Inactive Endocet 10 mg-325 mg Tab RxNorm: 7683985 1-2 Tablet(s) PO Q4H 09/2310/22/2011 Inactive PRN PAIN Endocet 10 mg-325 mg Tab RxNorm: 8917004 1-2 Tablet(s) PO Q4H 08/2109/19/2011 Inactive PRN PAIN MS Contin 200 mg Tab RxNorm: 927378 1 Tablet(s) PO BID 08/21/2011 Inactive Diflucan 100 mg Tab RxNorm: 517289 1 Tablet(s) PO QD 08/10/201108/16 Inactive cefdinir 300 mg Cap RxNorm: 038418 2 Capsule(s) PO QD 08/10/201107/24 Inactive Reglan 10 mg Tab RxNorm: 286936 1 Tablet(s) PO AC & HS 07/15/2011 Inactive Endocet 10 mg-325 mg Tab RxNorm: 4447434 1-2 Tablet(s) PO Q4H 07/1508/13/2011 Inactive PRN PAIN One Touch Ultra Test strips RxNorm: Miscellaneous BID 06/11/2011 1 01/16/2014 Inactive TEST TWO TIMES A DAY lactulose 10 gram/15 mL Oral Soln RxNorm: 244201 Milliliter(s) PO 0 06/10/2011 10/11/2011 Inactive TAKE 1 TABLESPOON BY MOUTH O NCE DAILY Chantix Continuing Month Aníbal 1 mg Tab RxNorm: 558243 Tablet(s) PO 0 06/10/2011 11/02/2011 Inactive TAKE DIRECTED - PER PACKA GE INSTRUCTIONS fluoxetine 40 mg Cap RxNorm: 865816 Capsule(s) PO 06/10/2011 02/02/20 12 Inactive TAKE ONE CAPSULE BY MOUTH EVERY MORNING Chantix Continuing Month Aníbal 1 mg Tab RxNorm: 774178 Ta blet(s) PO TAKE DIRECTED - PER PACKAGE INSTRUCTIONS 05/13/2011 06/09/2011 Inactive Soma 350 mg Tab RxNorm: 957765 Tablet(s) PO TAKE ON E TABLET BY MOUTH THREE TIMES A DAY 05/13/2011 04/18/2012 Inactive Chantix Continuing Month Aníbal 1 mg Tab RxNorm: 122487 Ta blet(s) PO as directed per package instructions. 04/22/2011 05/12/2011 Inactive Symbicort 160 mcg-4.5 mcg/Actuation HFA Aerosol Inhaler RxNo rm: 6399803 HFA Aerosol Inhaler INH INHALE 2 PUFFS ORALLY TWO TIMES A DAY 04/13/2011 Inactive Synthroid 112 mcg Tab RxNorm: 316536 Tablet(s) PO TAKE ONE TABLET BY MOUTH EVERY DAY 04/13/2011 10/12/2011 Inactive Premarin 0.9 mg Tab RxNorm: 803016 Tablet(s) PO TAKE ON E TABLET BY MOUTH EVERY DAY 04/13/2011 10/12/2011 Inactive gabapentin 800 mg Tab RxNorm: 807085 Tablet(s) PO TAKE ONE TABLET BY MOUTH EVERY DAY 04/13/2011 10/12/2011 Inactive Prevacid 30 mg Cap RxNorm: 091007 1 Capsule(s) PO QD 04/13/201110/11 Inactive Spiriva with HandiHaler 18 mcg & inhalation Caps RxNorm: 580 261 Capsule(s) INH INHALE CONTENTS OF 1 CAPSULE(S) WITH HANDIHALER ONCE DAILY 04/13/2011 12/21/2011 Inactive metformin ER 500 mg 24 hr Tab RxNorm: 384132 Tablet(s) PO TAKE ONE TABLET BY MOUTH EVERY DAY 04/13/2011 10/12/2011 Inactive Soma 350 mg Tab RxNorm: 108676 1 Tablet(s) PO QID 03/30/2011 02/13/20 19 Inactive fluoxetine 20 mg Cap RxNorm: 441351 Capsule(s) PO TAKE ONE CAPSULE BY MOUTH EVERY DAY 03/25/2011 10/12/2011 Inactive cefdinir 300 mg Cap RxNorm: 451255 2 Capsule(s) PO QD 03/19/201105/2011 Inactive 16.2 mg-0.1037 mg-0.0194 mg Tab RxNorm: 9450374 2 Tablet(s) PO TID PRN for gas and cramping 03/16/2011 07/13/2011 Inactive Soma 350 mg Tab RxNorm: 187508 2 Tablet(s) PO TID 03/16/2011 03/29/20 11 Inactive Chantix Starting Month Aníbal 0.5 mg (11)-1 mg (3x14) Tab s in a Dose Pack RxNorm: 716913 Tablet(s) PO as directed 03/02/2011 No Stop Date Active diazepam 10 mg Tab RxNorm: 777130 1 Tablet(s) PO BID 02/10/201101/19 Inactive Zofran 4 mg tablet RxNorm: 864448 1 Tablet(s) PO Q4H prn nausea 02/16/2011 Inactive Diflucan 100 mg Tab RxNorm: 099431 1 Tablet(s) PO QD 01/18/201101/24 Inactive Premarin 0.625 mg/g Vaginal Cream RxNorm: 151142 VAG In sert 1gm vaginally at bedtime 3 times weekly 01/18/2011 02/12/2019 Inactive loratadine 10 mg Tab RxNorm: 970057 1 Tablet(s) PO QD 12/17/201003/2012 Inactive Spiriva with HandiHaler 18 mcg & inhalation Caps RxNorm: 580 261 1 Capsule(s) INH QD 12/17/2010 04/12/2011 Inactive Diflucan 100 mg Tab RxNorm: 055811 1 Tablet(s) PO QD 12/17/201012/23 Inactive diazepam 10 mg Tab RxNorm: 153413 1 Tablet(s) PO BID and PRN 201002/12/2019 Inactive One Touch Ultra Test Strips RxNorm: InVt BID Zainab t blood sugar at least twice daily. 11/11/2010 06/11/2011 Inactive fluoxetine 40 mg Cap RxNorm: 076118 1 Capsule(s) PO QAM 11/11/2010 Inactive diazepam 10 mg Tab RxNorm: 011942 1 Tablet(s) PO BID and PRN 200911/12/2010 Inactive Bactrim DS 800 mg-160 mg Tab RxNorm: 649123 1 Tablet(s) PO BID 09/2210/15/2010 Inactive fluoxetine 20 mg Cap RxNorm: 112203 1 Capsule(s) PO QD 10/02/201008/2011 Inactive Bactrim DS 800 mg-160 mg Tab RxNorm: 916173 1 Tablet(s) PO BID 01/201010/03/2010 Inactive Zofran 4 mg Tab RxNorm: 651037 1 Tablet(s) PO Q4H prn nausea 200910/16/2010 Inactive 16.2 mg-0.1037 mg-0.0194 mg Tab RxNorm: 8238134 2 Tablet(s) PO TID PRN for gas and cramping 09/17/2010 10/21/2010 Inactive Gabapentin 800 mg Tab RxNorm: 773869 1 Tablet(s) PO QD 09/16/2010 Inactive ProAir HFA 90 mcg/Actuation Aerosol Inhaler RxNorm: 3954785 2 Puff(s) INH Q4H prn shortness of breath 09/15/2010 12/13/2010 Inactive gabapentin 800 mg Tab RxNorm: 153190 1 Tablet(s) PO QD 09/15/2010 Inactive Prevacid 30 mg Cap RxNorm: 700488 1 Capsule(s) PO QD 09/15/201004/12 Inactive loratadine 10 mg Tab RxNorm: 774614 1 Tablet(s) PO QD 09/15/201011/23 Inactive Premarin 0.9 mg Tab RxNorm: 102698 1 Tablet(s) PO QD 09/15/201004/12 Inactive Synthroid 112 mcg Tab RxNorm: 739228 1 Tablet(s) PO QD 09/15/2010 Inactive metformin ER 500 mg 24 hr Tab RxNorm: 043964 1 Tablet(s) PO QD 08/2304/12/2011 Inactive Symbicort 160 mcg-4.5 mcg/Actuation Inhalation HFA Aer osol Inhaler RxNorm: 4045725 2 Puff(s) INH BID 09/15/2010 04/12/2011 Inactive diazepam 10 mg Tab RxNorm: 224363 1 Tablet(s) PO BID and PRN 200910/13/2010 Inactive Phentermine 37.5 mg Cap RxNorm: 486507 1 Capsule(s) PO QD 09/02/2010 11/02/2011 Inactive ProAir HFA 90 mcg/Actuation Aerosol Inhaler RxNorm: 7104419 2 Puff(s) INH Q4H prn shortness of breath 08/07/2010 No Stop Date Active Premarin 0.9 mg Tab RxNorm: 383785 1 Tablet(s) PO QD 08/07/201009/14 Inactive Loratadine 10 mg Tab RxNorm: 941779 1 Tablet(s) PO QD 08/07/201008/23 Inactive Lactulose 10 gram/15 mL Oral Soln RxNorm: 596758 1 Unit Dose PO QD 08/07/2010 02/12/2019 Inactive Zofran 4 mg Tab RxNorm: 138625 1 Tablet(s) PO Q4H prn nausea 2009 No Stop Date Active Gabapentin 800 mg Tab RxNorm: 832182 1 Tablet(s) PO QD 08/07/2010 Inactive Synthroid 112 mcg Tab RxNorm: 793211 1 Tablet(s) PO QD 08/07/2010 Inactive Metformin ER 500 mg 24 hr Tab RxNorm: 059119 1 Tablet(s) PO QD 07/2309/14/2010 Inactive Vitamin D 1,000 unit Tab RxNorm: 153527 1 Tablet(s) PO TID 08/07/2002/12/2019 Inactive Symbicort 160 mcg-4.5 mcg/Actuation Inhalation HFA Aer osol Inhaler RxNorm: 1256465 2 Puff(s) INH BID 08/07/2010 09/14/2010 Inactive Prevacid 30 mg Cap RxNorm: 816779 1 Capsule(s) PO QD 08/07/201009/14 Inactive Metformin ER 500 mg 24 hr Tab RxNorm: 306281 1 Tablet(s) PO QD 06/2308/06/2010 Inactive Vitamin D 1,000 unit Tab RxNorm: 793532 1 Tablet(s) PO TID 07/14/2008/06/2010 Inactive Synthroid 112 mcg Tab RxNorm: 831201 1 Tablet(s) PO QD 07/14/2010 Inactive Lactulose 10 gram/15 mL Oral Soln RxNorm: 503768 1 Unit Dose PO QD 07/14/2010 08/06/2010 Inactive Levaquin 500 mg Tab RxNorm: 854092 1 Tablet(s) PO QD 07/14/201007/27 Inactive Premarin 0.9 mg Tab RxNorm: 244153 1 Tablet(s) PO QD 07/14/201008/06 Inactive ProAir HFA 90 mcg/Actuation Aerosol Inhaler RxNorm: 6716166 2 Puff(s) INH Q4H prn shortness of breath 07/14/2010 No Stop Date Active Prevacid 30 mg Cap RxNorm: 796525 1 Capsule(s) PO QD 07/14/201008/06 Inactive Zofran 4 mg Tab RxNorm: 196459 1 Tablet(s) PO Q4H prn nausea 2009 No Stop Date Active Symbicort 160 mcg-4.5 mcg/Actuation Inhalation HFA Aer osol Inhaler RxNorm: 1246835 2 Puff(s) INH BID 07/14/2010 08/06/2010 Inactive Loratadine 10 mg Tab RxNorm: 323447 1 Tablet(s) PO QD 07/14/201007/23 Inactive Gabapentin 800 mg Tab RxNorm: 646914 1 Tablet(s) PO QD 07/14/2010 Inactive Metformin ER 500 mg 24 hr Tab RxNorm: 226734 1 Tablet(s) PO 010 07/13/2010 Inactive Diazepam 10 mg Tab RxNorm: 711413 1 Tablet(s) PO BID and PRN 200909/06/2010 Inactive Premarin 0.9 mg Tab RxNorm: 543436 1 Tablet(s) PO QD 06/09/201007/13 Inactive Zofran 4 mg Tab RxNorm: 856295 1 Tablet(s) PO Q4H prn nausea 2009 No Stop Date Active ProAir HFA 90 mcg/Actuation Aerosol Inhaler RxNorm: 8467777 2 Puff(s) INH Q4H prn shortness of breath 06/09/2010 No Stop Date Active Gabapentin 800 mg Tab RxNorm: 774981 1 Tablet(s) PO QD 06/09/2010 Inactive Loratadine 10 mg Tab RxNorm: 726138 1 Tablet(s) PO QD 06/09/201006/23 Inactive Lactulose 10 gram/15 mL Oral Soln RxNorm: 233275 1 Unit Dose PO QD 06/09/2010 07/13/2010 Inactive Prevacid 30 mg Cap RxNorm: 908960 1 Capsule(s) PO QD 06/09/201007/13 Inactive Synthroid 112 mcg Tab RxNorm: 555287 1 Tablet(s) PO QD 06/09/2010 Inactive Symbicort 160 mcg-4.5 mcg/Actuation Inhalation HFA Aer osol Inhaler RxNorm: 2560390 2 Puff(s) INH BID 06/09/2010 07/13/2010 Inactive Omnicef 300 mg Cap RxNorm: 262798 2 Capsule(s) PO QD 05/07/201005/20 Inactive Metformin 500 mg Tab RxNorm: 483626 1 Tablet(s) PO QD 05/06/201005/22 Inactive ProAir HFA 90 mcg/Actuation Aerosol Inhaler RxNorm: 0985808 2 Puff(s) INH Q4H prn shortness of breath 05/06/2010 No Stop Date Active lactulose 10 gram/15 mL Oral Soln RxNorm: 839097 1 Unit Dose PO QD 05/06/2010 06/10/2011 Inactive Loratadine 10 mg Tab RxNorm: 449194 1 Tablet(s) PO QD 05/06/201005/22 Inactive Synthroid 112 mcg Tab RxNorm: 913080 1 Tablet(s) PO QD 05/06/2010 Inactive Symbicort 160 mcg-4.5 mcg/Actuation Inhalation HFA Aer osol Inhaler RxNorm: 7528623 2 Puff(s) INH BID 05/06/2010 06/08/2010 Inactive Gabapentin 800 mg Tab RxNorm: 120851 1 Tablet(s) PO QD 05/06/2010 Inactive 16.2 mg-0.1037 mg-0.0194 mg Tab RxNorm: 9701023 2 Tablet(s) PO TID PRN for gas and cramping 05/06/2010 05/12/2010 Inactive Zofran 4 mg Tab RxNorm: 612303 1 Tablet(s) PO Q4H prn nausea 200904/13/2010 Inactive MS Contin 60 mg Tab RxNorm: 320232 3 Tablet(s) PO BID 04/09/201004/22 Inactive Soma 350 mg Tab RxNorm: 716289 2 Tablet(s) PO TID 04/09/2010 05/08/20 Inactive Symbicort 160 mcg-4.5 mcg/Actuation Inhalation HFA Aer osol Inhaler RxNorm: 9737117 2 Puff(s) INH BID 04/08/2010 05/05/2010 Inactive Doxycycline 100 mg Cap RxNorm: 2230350 1 Capsule(s) PO BID 04/08/20 10 04/17/2010 Inactive Triamterene-Hydrochlorothiazide 37.5 mg-25 mg Cap RxNorm: 19 8316 1 Capsule(s) PO QAM 04/08/2010 09/04/2010 Inactive fluoxetine 40 mg Cap RxNorm: 550279 1 Capsule(s) PO QAM 04/08/2010 Inactive Morphine SR 120 mg multiphase 24 hr Cap RxNorm: 839703 1 Capsul e(s) PO 03/11/2010 04/07/2010 Inactive Endocet 10 mg-325 mg Tab RxNorm: 1831274 1-2 Tablet(s) PO Q4H NM N PAIN 03/11/2010 04/09/2010 Inactive Savella 100 mg Tab RxNorm: 365742 1 Tablet(s) PO BID 03/10/201004/09 Inactive Soma 350 mg Tab RxNorm: 492896 1 Tablet(s) PO TID prn spasm 010 04/09/2010 Inactive Savella 100 mg Tab RxNorm: 100149 1 Tablet(s) PO BID 02/03/201004/09 Inactive Aspirin 81 mg Tab RxNorm: 050882 1 Tablet(s) PO QD No Start Date Active Zyrtec 10 mg Tab RxNorm: 7729138 1 Tablet(s) PO QD No Start Date Active One Touch Ultra Test Strips RxNorm: Misc test at least t wice daily. No Start Date Active coenzyme Q10 200 mg capsule RxNorm: 958780 1 Capsule(s) PO QD No Star t Date Active One Touch Ultra Test Strips RxNorm: InVt BID Zainab t blood sugar at least twice daily. No Start Date 11/10/2010 Inactive Gabapentin 800 mg Tab RxNorm: 189359 1 Tablet(s) PO QD No Start Date 05/05/2010 Inactive Abilify 5 mg tablet RxNorm: 116994 1 Tablet(s) PO QD No Start Date Inactive Chantix 1 mg Tab RxNorm: 534388 1 Tablet(s) PO BID No Start Date 10/22 Inactive Ozempic 0.25 mg or 0.5 mg (2 mg/1.5 mL) subcutaneous p en injector RxNorm: 9763828 .25 Milligram(s) SQ QW No Start Date 07/04/2019 Inactive lancets 28 gauge RxNorm: Miscellaneous As needed for blo od glucose sticks No Start Date 08/23/2013 Inactive potassium chloride ER 20 mEq tablet,extended release RxNorm: 848245 2 Tablet(s) PO QD No Start Date 09/26/2018 Inactive Ventolin HFA 90 mcg/actuation Aerosol Inhaler RxNorm: 974162 1 2 Puff(s) INH Q4H prn No Start Date 01/17/2012 Inactive potassium chloride ER 20 mEq tablet,extended release RxNorm: 097322 2 Tablet(s) PO QD No Start Date 10/19/2018 Inactive Januvia 100 mg tablet RxNorm: 603563 1 Tablet(s) PO QD No Start Date 09/10/2015 Inactive Medrol (Aníbal) 4 mg Tabs in a Dose Pack RxNorm: 031725 Tablet(s) PO N o Start Date 08/09/2011 Inactive as directed Zithromax Z-Aníbal 250 mg Tab RxNorm: 294666 Tablet(s) PO No Start Date 01/25/2012 Inactive as directed vitamin B6-vitamin E-magnesium tablet RxNorm: 1 Tablet(s ) PO QHS with INH No Start Date 03/30/2018 Inactive prednisone 20 mg Tab RxNorm: 281517 1 Tablet(s) PO TID for 1wk then 1 po BID for 1wk No Start Date 01/25/2012 Inactive furosemide 40 mg tablet RxNorm: 363664 1 Tablet(s) PO QAM No Start Date 10/09/2018 Inactive Vitamin D3 1000 units Capsule RxNorm: 1 Capsule(s) PO TID No S tart Date 03/19/2015 Inactive Zofran 4 mg Tab RxNorm: 136870 1 Tablet(s) PO Q4H prn nausea No Sta rt Date 04/13/2010 Inactive Premarin 0.625 mg/g Vaginal Cream RxNorm: 462172 1 Gram (s) VAG QHS 3 times a week No Start Date 09/22/2017 Inactive oxycodone 10 mg tablet RxNorm: 7614129 1-2 Tablet(s) PO QID as n eeded for pain No Start Date 11/04/2015 Inactive Nicoderm CQ 21 mg/24 hr daily Patch RxNorm: 353175 1 Applicatio n TD QD No Start Date 08/05/2015 Inactive Topamax 50 mg tablet RxNorm: 169434 1/2 Tablet(s) PO QH S for 1wk then 1 po q HS for 1wk then 2 po q HS No Start Date 06/27/2012 Inactive Chantix Starting Month Aníbal 0.5 mg (11)-1 mg (3x14) Tab s in a Dose Pack RxNorm: 861331 Tablet(s) PO as directed No Start Date 03/01/2011 Inactive Trulicity 0.75 mg/0.5 mL subcutaneous pen injector RxNorm: 1 402223 Milliliter(s) SQ No Start Date 07/04/2019 Inactive Medrol (Aníbal) 4 mg Tabs in a Dose Pack RxNorm: 338050 Tablet(s) PO N o Start Date 01/25/2012 Inactive as directed Duragesic 100 mcg/hr Transderm Patch RxNorm: 485400 2 A pplication TD Q48H for pain No Start Date 09/05/2013 Inactive Premarin 0.9 mg Tab RxNorm: 282905 1 Tablet(s) PO QD No Start Date Inactive Zithromax Z-Aníbal 250 mg Tab RxNorm: 017761 Tablet(s) PO as direc chinmay No Start Date 01/25/2012 Inactive ondansetron 8 mg disintegrating tablet RxNorm: 438452 1 Tablet(s) PO Q6H as needed No Start Date 10/10/2018 Inactive oxycodone 15 mg tablet RxNorm: 7146662 1 Tablet(s) PO QID as nee ded for pain No Start Date 03/05/2019 Inactive ProAir HFA 90 mcg/Actuation Aerosol Inhaler RxNorm: 119343 2 Puff(s) INH Q4H prn for wheezing or shortness of breath No Start Date 12/21/2011 Inactive pravastatin 40 mg tablet RxNorm: 592024 1/2 Tablet(s) PO QOD No Sta rt Date 04/09/2015 Inactive ipratropium-albuterol 0.5 mg-3 mg(2.5 mg base)/3 mL ne bulization soln RxNorm: 3000555 1 Unit Dose INH Q4H as needed No Start Date 09/09/2016 Inactive furosemide 40 mg tablet RxNorm: 370807 1 Tablet(s) PO QAM as ne eded No Start Date 09/24/2019 Inactive Vitamin D2 oral RxNorm: 4018 oral No Start Date 03/18/2015 Inacti ve pravastatin 40 mg tablet RxNorm: 230917 1/2 Tablet(s) PO QD No Star t Date 04/09/2015 Inactive ondansetron HCl 4 mg tablet RxNorm: 365848 1 Tablet(s) PO Q4H as needed for nausea and vomiting No Start Date 04/07/2016 Inactive furosemide 40 mg tablet RxNorm: 797278 2 Tablet(s) PO QAM No Start Date 09/26/2018 Inactive gabapentin 800 mg tablet RxNorm: 380448 1/2 Tablet(s) PO BID No Sta rt Date 06/21/2017 Inactive gabapentin 800 mg tablet RxNorm: 082908 1/2 Tablet(s) PO BID No Sta rt Date 07/05/2017 Inactive ProAir HFA 90 mcg/Actuation Aerosol Inhaler RxNorm: 9352351 2 Puff(s) INH Q4H prn shortness of breath No Start Date 05/05/2010 Inactive scopolamine 1 mg over 3 days transdermal patch RxNorm: 83204 2 1 Application TD behind ear. Take off after three days No Start Date 10/10/2018 Inactive Metformin 500 mg Tab RxNorm: 421803 1 Tablet(s) PO QD No Start Date 0 05/05/2010 Inactive MS Contin 200 mg Tab RxNorm: 132413 1 Tablet(s) PO BID No Start Date 08/20/2011 Inactive Belladonna-Phenobarbital 48 mg tablet,extended release RxNor m: 2 Tablet(s) PO TID No Start Date 06/04/2016 Inactive Synthroid 112 mcg Tab RxNorm: 285093 1 Tablet(s) PO QD No Start Date 05/05/2010 Inactive Zegerid 40 mg-1.1 gram Cap RxNorm: 475470 1 Capsule(s) PO QD No Sta rt Date 01/25/2012 Inactive Premarin 0.625 mg/g Vaginal Cream RxNorm: 151043 VAG In sert 1gm vaginally at bedtime 3 times weekly No Start Date 01/17/2011 Inactive potassium chloride ER 20 mEq tablet,extended release RxNorm: 183355 1 Tablet(s) PO QD No Start Date 04/24/2019 Inactive methocarbamol 750 mg tablet RxNorm: 272573 2 Tablet(s) PO TID as needed for muscle spasm No Start Date 07/08/2014 Inactive Biaxin XL Aníbal 500 mg 24 hr Tab RxNorm: 361472 Tablet(s) PO as d irected No Start Date 04/24/2013 Inactive Vitamin D3 1,000 unit tablet RxNorm: 822024 3 Tablet(s) PO QD No St art Date 06/01/2017 Inactive Morphine SR 120 mg multiphase 24 hr Cap RxNorm: 288346 1 Capsul e(s) PO BID No Start Date 04/09/2010 Inactive Silvadene 1 % topical cream RxNorm: 689266 1 Application TOP BI D to burn area No Start Date 01/31/2017 Inactive Prednisone 20 mg Tab RxNorm: 964608 1 Tablet(s) PO TID for 3days then BID for 4days No Start Date 01/25/2012 Inactive gabapentin 600 mg tablet RxNorm: 976654 1 Tablet(s) PO BID No Start Date 01/21/2015 Inactive topiramate 50 mg tablet RxNorm: 740123 1 Tablet(s) PO QHS No Start Date 03/30/2018 Inactive Januvia 100 mg tablet RxNorm: 126896 1/2 Tablet(s) PO QD No Start D ate 12/25/2015 Inactive Diazepam 10 mg Tab RxNorm: 744437 1 Tablet(s) PO BID and PRN No Sta rt Date 06/08/2010 Inactive Medication Administered No Medication Administered data Immunizations Vaccine Codes Date Status Influenza CVX: 141 09/28/2012 Pneumovax Unknown 09/28/2012 Influenza (Adult) CVX: 141 09/02/2010 Results No Results data Procedures Procedure Codes Date THER/PROPH/DIAG INJ SC/IM CPT-4: 81961 07/10/2019 METHYLPREDNISOLONE INJECTION CPT-4: J2930 07/10/2019 URINALYSIS NONAUTO W/O SCOPE CPT-4: 72938 09/06/2018 URINE CULTURE/ COLONY COUNT CPT-4: 87187 09/06/2018 DRAIN/INJECT JOINT/BURSA CPT-4: 10019 04/29/2017 TRIAMCINOLONE ACET INJ NOS CPT-4: J3301 04/29/2017 DEXAMETHASONE SODIUM PHOS CPT-4: J1100 04/29/2017 INFLUENZA ASSAY W/OPTIC CPT-4: 64566 12/01/2016 RESPIRATORY CULTURE & STAIN CPT-4: 01127 07/09/2016 TB INTRADERMAL TEST CPT-4: 07171 04/21/2016 DRAIN/INJECT JOINT/BURSA CPT-4: 65484 11/07/2013 METHYLPREDNISOLONE 40 MG INJ CPT-4: J1030 11/07/2013 TRIAMCINOLONE ACET INJ NOS CPT-4: J3301 11/07/2013 DRAIN/INJECT JOINT/BURSA CPT-4: 39594 08/08/2013 METHYLPREDNISOLONE 40 MG INJ CPT-4: J1030 08/08/2013 TRIAMCINOLONE ACET INJ NOS CPT-4: J3301 08/08/2013 FLU VACCINE 3 YRS & > IM UP 64 CPT-4: 10990 2 PNEUMOCOCCAL VACC 23 ADITYA IM CPT-4: 06428 09/28/2012 IMMUNIZATION ADMIN CPT-4: 53886 09/28/2012 IMMUNIZATION ADMIN EACH ADD CPT-4: 57978 09/28/2012 FLU VACCINE 3 YRS & > IM UP 64 CPT-4: 54856 0 IMMUNIZATION ADMIN CPT-4: 74796 09/02/2010 METHYLPREDNISOLONE INJECTION CPT-4: J2930 05/07/2010 THER/PROPH/DIAG INJ SC/IM CPT-4: 00587 05/07/2010 Vital Signs Date Vital 11/29/2019 Blood [...] 1: 122/78 Code: 8480-6 BMI: 29.5 Code: 09490-6 Heart Rate 1: 76 bpm Height: 5'4" Respiratory Rate: 20 bpm SpO2: 96% Tempera ture: 37.0 (C) / 98.6 (F) Weight: 172 lbs 01/25/2019 Blood Pressure 1: 132/80 Code: 8480-6 BMI: 29.7 Code: 47000-2 Heart Rate 1: 84 bpm Height: 5'4" Respiratory Rate: 22 bpm SpO2: 98% Tempera ture: 36.9 (C) / 98.4 (F) Weight: 173 lbs 01/03/2019 Blood Pressure 1: 116/70 Code: 8480-6 BMI: 29.5 Code: 21570-8 Heart Rate 1: 92 bpm Height: 5'4" Respiratory Rate: 24 bpm SpO2: 98% Tempera ture: 37.2 (C) / 98.9 (F) Weight: 172 lbs 11/21/2018 Blood Pressure 1: 146/82 Code: 8480-6 BMI: 28.2 Code: 90492-0 Heart Rate 1: 88 bpm Height: 5'4" Respiratory Rate: 22 bpm SpO2: 97% Tempera ture: 36.9 (C) / 98.4 (F) Weight: 164 lbs 10/27/2018 Blood Pressure 1: 122/70 Code: 8480-6 BMI: 27.6 Code: 33446-2 Heart Rate 1: 88 bpm Height: 5'4" Respiratory Rate: 20 bpm SpO2: 96% Tempera ture: 36.8 (C) / 98.3 (F) Weight: 161 lbs 10/18/2018 Blood Pressure 1: 126/70 Code: 8480-6 BMI: 28.3 Code: 33469-0 Heart Rate 1: 76 bpm Height: 5'4" Respiratory Rate: 20 bpm SpO2: 95% Tempera ture: 37.0 (C) / 98.6 (F) Weight: 165 lbs 09/27/2018 Blood Pressure 1: 124/78 Code: 8480-6 BMI: 27.1 Code: 23466-6 Heart Rate 1: 88 bpm Height: 5'4" Respiratory Rate: 20 bpm SpO2: 98% Tempera ture: 36.4 (C) / 97.6 (F) Weight: 158 lbs 09/14/2018 Blood Pressure 1: 140/72 Code: 8480-6 BMI: 26.1 Code: 89109-4 Heart Rate 1: 100 bpm Height: 5'4" Respiratory Rate: 20 bpm SpO2: 97% Tempera ture: 36.9 (C) / 98.4 (F) Weight: 152 lbs 09/06/2018 Blood Pressure 1: 156/82 Code: 8480-6 BMI: 26.3 Code: 52676-2 Heart Rate 1: 100 bpm Height: 5'4" Respiratory Rate: 28 bpm SpO2: 95% Tempera ture: 37.2 (C) / 98.9 (F) Weight: 153 lbs 08/16/2018 Blood Pressure 1: 130/78 Code: 8480-6 Heart Rate 1: 87 bpm Respiratory Rate: 24 bpm SpO2: 94% Temperature: 36.9 (C) / 98.4 (F) We ight: 147 lbs 8 oz 07/07/2018 Blood Pressure 1: 116/78 Code: 8480-6 BMI: 22.7 Code: 23746-1 Heart Rate 1: 88 bpm Height: 5'4" Respiratory Rate: 22 bpm SpO2: 98% Tempera ture: 36.5 (C) / 97.7 (F) Weight: 132 lbs 05/31/2018 Blood Pressure 1: 128/78 Code: 8480-6 BMI: 22.3 Code: 76995-4 Heart Rate 1: 92 bpm Height: 5'4" Respiratory Rate: 26 bpm SpO2: 94% Tempera ture: 36.7 (C) / 98.1 (F) Weight: 130 lbs 03/31/2018 Blood Pressure 1: 136/78 Code: 8480-6 BMI: 21.5 Code: 62142-9 Heart Rate 1: 76 bpm Height: 5'4" Respiratory Rate: 24 bpm SpO2: 95% Tempera ture: 36.8 (C) / 98.3 (F) Weight: 125 lbs 01/26/2018 Blood Pressure 1: 142/64 Code: 8480-6 BMI: 20.6 Code: 79302-6 Heart Rate 1: 90 bpm Height: 5'4" Respiratory Rate: 24 bpm SpO2: 92% Tempera ture: 36.3 (C) / 97.3 (F) Weight: 120 lbs 10/26/2017 Blood Pressure 1: 124/70 Code: 8480-6 BMI: 20.3 Code: 65210-4 Heart Rate 1: 76 bpm Height: 5'4" Respiratory Rate: 22 bpm SpO2: 94% Tempera ture: 36.7 (C) / 98.1 (F) Weight: 118 lbs 09/23/2017 Blood Pressure 1: 106/70 Code: 8480-6 BMI: 19.2 Code: 23834-0 Heart Rate 1: 76 bpm Height: 5'4" Respiratory Rate: 20 bpm SpO2: 94% Tempera ture: 36.8 (C) / 98.3 (F) Weight: 112 lbs 08/12/2017 Blood Pressure 1: 116/68 Code: 8480-6 BMI: 20.1 Code: 13063-1 Heart Rate 1: 80 bpm Height: 5'4" Respiratory Rate: 22 bpm SpO2: 95% Tempera ture: 36.8 (C) / 98.2 (F) Weight: 117 lbs 07/06/2017 Blood Pressure 1: 136/78 Code: 8480-6 BMI: 20.6 Code: 71158-3 Heart Rate 1: 76 bpm Height: 5'4" Respiratory Rate: 24 bpm SpO2: 96% Tempera ture: 36.8 (C) / 98.2 (F) Weight: 120 lbs 06/02/2017 Blood Pressure 1: 112/70 Code: 8480-6 Heart Rate 1: 92 bpm Height: 5'4" Respiratory Rate: 24 bpm SpO2: 95% Temperature: 37.0 (C) / 98.6 (F) Weight: 04/29/2017 Blood Pressure 1: 94/52 Code: 8480-6 BMI: 19.6 C ode: 32327-4 Heart Rate 1: 84 bpm Height: 5'4" [...] 92/58 Code: 8480-6 BMI: 19.2 C ode: 16986-3 Heart Rate 1: 84 bpm Height: 5'4" Respiratory Rate: 26 bpm SpO2: 95% Tempera ture: 36.7 (C) / 98.0 (F) Weight: 112 lbs 12/01/2016 Blood Pressure 1: 114/70 Code: 8480-6 BMI: 19.2 Code: 83225-0 Heart Rate 1: 96 bpm Height: 5'4" Respiratory Rate: 28 bpm SpO2: 93% Tempera ture: 38.3 (C) / 101.0 (F) Weight: 112 lbs 10/27/2016 Blood Pressure 1: 126/66 Code: 8480-6 BMI: 19.6 Code: 60466-6 Heart Rate 1: 92 bpm Height: 5'4" Respiratory Rate: 28 bpm SpO2: 90% Tempera ture: 36.8 (C) / 98.3 (F) Weight: 114 lbs 09/09/2016 Blood Pressure 1: 126/74 Code: 8480-6 Heart Rate 1: 104 bpm Height: 5'4" Respiratory Rate: 32 bpm SpO2: 88% Temperature: 37 .2 (C) / 99.0 (F) 08/26/2016 Blood Pressure 1: 134/82 Code: 8480-6 BMI: 22.0 Code: 09242-9 Heart Rate 1: 84 bpm Height: 5'4" Respiratory Rate: 24 bpm SpO2: 94% Tempera ture: 36.8 (C) / 98.3 (F) Weight: 128 lbs 05/21/2016 Blood Pressure 1: 142/80 Code: 8480-6 BMI: 21.6 Code: 37109-2 Heart Rate 1: 104 bpm Height: 5'4" Respiratory Rate: 22 bpm SpO2: 93% Tempera ture: 36.0 (C) / 96.8 (F) Weight: 126 lbs 03/25/2016 Blood Pressure 1: 126/62 Code: 8480-6 Heart Rate 1: 88 bpm Respiratory Rate: 20 bpm SpO2: 92% Temperature: 36.8 (C) / 98.3 (F) We ight: 130 lbs 01/23/2016 Blood Pressure 1: 146/82 Code: 8480-6 BMI: 24.1 Code: 49248-0 Heart Rate 1: 92 bpm Height: 5'3" Respiratory Rate: 22 bpm Temperature: 37 .1 (C) / 98.8 (F) Weight: 136 lbs 12/26/2015 Blood Pressure 1: 142/78 Code: 8480-6 BMI: 24.6 Code: 93785-1 Heart Rate 1: 78 bpm Height: 5'3" Respiratory Rate: 20 bpm Temperature: 36 .7 (C) / 98.1 (F) Weight: 139 lbs 12/03/2015 Blood Pressure 1: 126/60 Code: 8480-6 BMI: 24.6 Code: 41977-4 Heart Rate 1: 100 bpm Height: 5'3" Respiratory Rate: 28 bpm Temperature: 37 .6 (C) / 99.6 (F) Weight: 139 lbs 09/10/2015 Blood Pressure 1: 124/64 Code: 8480-6 BMI: 23.7 Code: 74631-0 Heart Rate 1: 88 bpm Height: 5'3" Respiratory Rate: 24 bpm SpO2: 95% Tempera ture: 36.4 (C) / 97.6 (F) Weight: 134 lbs 08/06/2015 Blood Pressure 1: 114/76 Code: 8480-6 BMI: 23.2 Code: 10252-8 Heart Rate 1: 88 bpm Height: 5'3" Respiratory Rate: 22 bpm Temperature: 36 .6 (C) / 97.9 (F) Weight: 131 lbs 07/18/2015 Blood Pressure 1: 144/78 Code: 8480-6 BMI: 23.7 Code: 24336-2 Heart Rate 1: 84 bpm Height: 5'3" Respiratory Rate: 20 bpm Temperature: 37 .2 (C) / 99.0 (F) Weight: 134 lbs 04/10/2015 Blood Pressure 1: 110/64 Code: 8480-6 Heart Rate 1: 80 bpm Height: Respiratory Rate: 20 bpm Temperature: 37.1 (C) / 98.8 (F) Weight: 03/05/2015 Blood Pressure 1: 136/80 Code: 8480-6 BMI: 23.9 Code: 86622-2 Heart Rate 1: 76 bpm Height: 5'3" Respiratory Rate: 24 bpm Temperature: 37 .0 (C) / 98.6 (F) Weight: 135 lbs 01/30/2015 Blood Pressure 1: 142/80 Code: 8480-6 BMI: 23.0 Code: 63094-8 Heart Rate 1: 96 bpm Height: 5'3" Respiratory Rate: 22 bpm Temperature: 36 .2 (C) / 97.2 (F) Weight: 130 lbs 01/02/2015 Blood Pressure 1: 124/70 Code: 8480-6 BMI: 23.4 Code: 07244-0 Heart Rate 1: 84 bpm Height: 5'3" Respiratory Rate: 24 bpm SpO2: 95% Tempera ture: 36.9 (C) / 98.5 (F) Weight: 132 lbs 10/03/2014 Blood Pressure 1: 106/68 Code: 8480-6 BMI: 22.5 Code: 88863-9 Heart Rate 1: 88 bpm Height: 5'3" Respiratory Rate: 24 bpm Temperature: 37 .0 (C) / 98.6 (F) Weight: 127 lbs 08/27/2014 Blood Pressure 1: 124/68 Code: 8480-6 BMI: 21.1 Code: 16791-6 Heart Rate 1: 88 bpm Height: 5'3" [...] 1: 120/70 Code: 8480-6 BMI: 19.2 Code: 57671-4 Heart Rate 1: 70 bpm Height: 5'4" Respiratory Rate: 20 bpm Temperature: 36 .9 (C) / 98.4 (F) Weight: 112 lbs 06/28/2013 Blood Pressure 1: 102/68 Code: 8480-6 BMI: 19.6 Code: 97714-6 Heart Rate 1: 76 bpm Height: 5'4" Respiratory Rate: 20 bpm Temperature: 36 .8 (C) / 98.2 (F) Weight: 114 lbs 05/31/2013 Blood Pressure 1: 106/70 Code: 8480-6 BMI: 18.9 Code: 76685-7 Heart Rate 1: 100 bpm Height: 5'4" Respiratory Rate: 20 bpm Temperature: 36 .4 (C) / 97.6 (F) Weight: 110 lbs 05/03/2013 Blood Pressure 1: 126/70 Code: 8480-6 BMI: 19.1 Code: 69642-6 Heart Rate 1: 88 bpm Height: 5'4" Respiratory Rate: 20 bpm Temperature: 37 .1 (C) / 98.8 (F) Weight: 111 lbs 04/25/2013 Blood Pressure 1: 114/68 Code: 8480-6 BMI: 19.4 Code: 98225-7 Heart Rate 1: 92 bpm Height: 5'4" Respiratory Rate: 24 bpm SpO2: 96% Tempera ture: 37.7 (C) / 99.8 (F) Weight: 113 lbs 03/08/2013 Blood Pressure 1: 94/68 Code: 8480-6 BMI: 21.3 C ode: 71750-3 Heart Rate 1: 88 bpm Height: 5'4" Respiratory Rate: 24 bpm Temperature: 37 .0 (C) / 98.6 (F) Weight: 124 lbs 02/07/2013 Blood Pressure 1: 106/64 Code: 8480-6 BMI: 21.8 Code: 66008-5 Heart Rate 1: 84 bpm Height: 5'4" Respiratory Rate: 22 bpm Temperature: 36 .8 (C) / 98.2 (F) Weight: 127 lbs 01/10/2013 Blood Pressure 1: 122/68 Code: 8480-6 BMI: 21.6 Code: 22971-0 Heart Rate 1: 94 bpm Height: 5'4" SpO2: 94% Temperature: 36.7 (C) / 98.1 (F) Weight: 126 lbs 09/28/2012 Blood Pressure 1: 124/78 Code: 8480-6 BMI: 24.9 Code: 42425-9 Heart Rate 1: 92 bpm Height: 5'4" Respiratory Rate: 20 bpm Temperature: 36 .7 (C) / 98.1 (F) Weight: 145 lbs 06/28/2012 Blood Pressure 1: 134/80 Code: 8480-6 BMI: 24.9 Code: 91775-5 Heart Rate 1: 76 bpm Height: 5'4" Respiratory Rate: 20 bpm Temperature: 36 .8 (C) / 98.2 (F) Weight: 145 lbs 05/03/2012 Blood Pressure 1: 108/62 Code: 8480-6 BMI: 25.6 Code: 38476-7 Heart Rate 1: 88 bpm Height: 5'4" Temperature: 36.2 (C) / 97.2 (F) Weight: 149 lbs 03/01/2012 Blood Pressure 1: 124/66 Code: 8480-6 BMI: 25.1 Code: 53600-9 Heart Rate 1: 76 bpm Height: 5'4" Respiratory Rate: 20 bpm Temperature: 36 .6 (C) / 97.9 (F) Weight: 146 lbs 01/26/2012 Blood Pressure 1: 118/82 Code: 8480-6 BMI: 25.1 Code: 91704-6 Heart Rate 1: 74 bpm Height: 5'4" Temperature: 36.8 (C) / 98.2 (F) Weight: 146 lbs 11/03/2011 Blood Pressure 1: 126/80 Code: 8480-6 BMI: 27.3 Code: 77142-5 Heart Rate 1: 72 bpm Height: 5'4" [...] prozac Encounters Encounter Performer Location Codes Date ([id number]) OFFICE/OUTPATIENT VISIT EST Diagnosis: Chronic pain syndrome[ICD10: G89.4] Diagnosis: Localized edema[ICD10: R60.0] Diagnosis: Chronic obstructive pulmonary disease, unspecified[ICD10: J44.9] Diagnosis: Other fatigue[ICD10: R53.83] Diagnosis: Muscle weakness (generalized)[ICD10: M62.81] Diagnosis: Spinal stenosis, lumbar region with neurogenic claudication[ICD10: M48.062] Vika [employer] [employer] CPT-4: 72478 11/29/2019 ([id number]) OFFICE/OUTPATIENT VISIT EST Diagnosis: Chronic pain syndrome[ICD10: G89.4] Diagnosis: Lumbar degenerative disc disease[ICD10: M51.36] Diagnosis: Muscle spasm[ICD10: M62.838] Diagnosis: Spinal stenosis, lumbar region with neurogenic claudication[ICD10: M48.062] Diagnosis: Spondylosis without myelopathy or radiculopathy, 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] Vika Bello [employer] CPT-4: 95079 10/30/2019 ([id number]) OFFICE/OUTPATIENT VISIT EST Diagnosis: Chronic pain syndrome[ICD10: G89.4] Vika Bello [employer] CPT-4: 71469 10/25/2019 ([id number]) OFFICE/OUTPATIENT VISIT EST Diagnosis: Epigastric pain[ICD10: R10.13] Diagnosis: Nausea[ICD10: R11.0] Diagnosis: Chronic obstructive pulmonary disease, unspecified[ICD10: J44.9] Vika Bello [employer] CPT-4: 36707 07/26/2019 ([id number]) OFFICE/OUTPATIENT VISIT EST Diagnosis: Chronic obstructive pulmonary disease with (acute) exacerbation[ICD10: J44.1] Diagnosis: Chronic respiratory failure with hypoxia[ICD10: J96.11] Diagnosis: Other fatigue[ICD10: R53.83] Diagnosis: Edema, unspecified[ICD10: R60.9] Vika RENTERIA [employer] CPT-4: 44616 07/19/2019 ([id number]) OFFICE/OUTPATIENT VISIT EST Diagnosis: Chronic obstructive pulmonary disease with acute lower respiratory infection[ICD10: J44.0] Vika RENTERIA [employer] CPT-4: 09755 07/10/2019 ([id number]) OFFICE/OUTPATIENT VISIT EST Diagnosis: Type 2 diabetes mellitus with hyperglycemia[ICD10: E11.65] Diagnosis: Other infective otitis externa, left ear[ICD10: H60.392] Vika RENTERIA [employer] [facility] CPT-4: 38606 06/05/2019 ([id number]) OFFICE/OUTPATIENT VISIT EST Diagnosis: Chronic obstructive pulmonary disease with (acute) exacerbation[ICD10: J44.1] Diagnosis: Type 2 diabetes mellitus with hyperglycemia[ICD10: E11.65] Vika RENTERIA [employer] CPT-4: 07027 05/03/2019 ([id number]) OFFICE/OUTPATIENT VISIT EST Diagnosis: Type 2 diabetes mellitus with hyperglycemia[ICD10: E11.65] Diagnosis: Abnormal weight gain[ICD10: R63.5] Diagnosis: Chronic obstructive pulmonary disease with acute lower respiratory infection[ICD10: J44.0] Vika RENTERIA [employer] [facility] CPT-4: 69828 04/11/2019 ([id number]) OFFICE/OUTPATIENT VISIT EST Diagnosis: Hypothyroidism, unspecified[ICD10: E03.9] Diagnosis: Abnormal weight gain[ICD10: R63.5] Diagnosis: Other fatigue[ICD10: R53.83] Vika RENTERIA [employer]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
--- OUTSIDE RECORDS SUMMARY | 2020-04-24 23:34 | XMS REPORT | CCD ---
Author Author Yana Renteria D.O. 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 Name Role Phone Vika Renteria D.O., PP Unavailable CCM Unavailable Summary Purpose Interface Exchange Insurance Providers Payer name Policy type / Coverage type Covered alliance party ID Effective Begin Date Effective End Date [employer] [facility] Medicaid [id number] 2018 U nknown Family History Family History data not found Social History Social History Element Codes Description Effective Dates Marital status Unknown 06/28/[address]: 48354056 Currently smokes tobacco 05/2013 Allergies, Adverse Reactions, Alerts Substance Reaction Codes Entered Date Inactivated Date Status Other Unknown 06/28/2013 No Inactive Date Active * NO KNOWN FOOD ALLERGIES Unknown 06/28/2013 No Inactiv e Date Active * NO KNOWN DRUG ALLERGIES Unknown 05/07/2010 No Inactiv e Date Active Problems Condition Codes Effective Dates Condition Status Chronic pain syndrome ICD-9: 338.4 ICD-10: G89.4 08/27/2014 Active Lumbar degenerative disc disease ICD-9: 722.52 ICD-10: M51.36 10/30/2019 Active Muscle spasm ICD-9: 728.85 ICD-10: M62.838 03/31/2018 Active Spinal stenosis, lumbar region with neurogenic claudic ation ICD-9: 724.03 ICD-10: M48.062 10/30/2019 Active Spondylosis without myelopathy or radiculopathy, cervi brooks region ICD-9: 721.0 ICD-10: M47.812 10/30/2019 Active Chronic obstructive pulmonary disease, unspecified ICD -9: 496 ICD-10: J44.9 03/07/2014 Active Epigastric pain ICD-9: 789.06 ICD-10: R10.13 [...] unspecified ICD-9: 782.3 ICD-10: R60.9 09/06/2018 Active Other fatigue ICD-9: 780.79 ICD-10: R53.83 08/27/2014 Active Chronic obstructive pulmonary disease with acute [...] hyponatremia ICD-9: 276.1 ICD-10: E87.1 01/04/2019 Active Localized edema ICD-9: 782.3 ICD-10: R60.0 09/14/2018 Active Other forms of dyspnea ICD-9: 786.09 [...] disorders ICD-9: 305.1 ICD-10: F17.209 02/23/2017 Active Muscle weakness (generalized) ICD-9: 728.87 ICD-10: M62.81 07/06/2017 Active Other dystonia ICD-9: 781.0 ICD-10: G24.8 [...] Fill Instructions cyclobenzaprine 10 mg tablet RxNorm: 455238 TAKE ONE TA BLET BY MOUTH THREE TIMES A DAY NEEDED 11/21/2019 No Stop Date Active MS Contin 200 mg tablet,extended release RxNorm: 680296 1 Tablet(s) Oral two times a day replaces 100mg dose 11/03/2019 12/02/2019 Active MS Contin 200 mg tablet,extended release RxNorm: 132630 1 Tablet(s) Oral two times a day replaces 100mg dose 11/03/2019 11/02/2019 Inactive ferrous sulfate 325 mg (65 mg iron) tablet RxNorm: 862586 1 Tab let(s) Oral QD 10/30/2019 No Stop Date Active MS Contin 100 mg tablet,extended release RxNorm: 866296 1 Table t(s) Oral QD 10/30/2019 10/29/2019 Inactive MS Contin 100 mg tablet,extended release RxNorm: 270285 1 Table t(s) Oral QD 10/30/2019 11/02/2019 Inactive Relistor 150 mg tablet RxNorm: 7166081 TAKE THREE TABLETS BY BENOIT TH DAILY 10/25/2019 No Stop Date Active oxycodone 15 mg tablet RxNorm: 8672667 1 Tablet(s) Oral four times a day as needed for pain 10/25/2019 10/25/2019 Inactive pantoprazole 40 mg tablet,delayed release RxNorm: 002484 1 Tabl et(s) Oral QD 10/25/2019 No Stop Date Active metformin 500 mg tablet RxNorm: 795969 1 Tablet(s) Oral QD 10/25/20 19 No Stop Date Active levothyroxine 25 mcg tablet RxNorm: 754492 1 Tablet(s) Oral QAM 02/201912/23/2019 Active Minipress 2 mg capsule RxNorm: 502329 1 Capsule(s) Oral QAM and 3 at bedtime 10/25/2019 No Stop Date Active Lancets, Super Thin RxNorm: 1 Unit Dose Miscellaneous QD 9 11/27/2020 Active Cymbalta 60 mg capsule,delayed release RxNorm: 156191 1 Capsule (s) Oral QAM 10/25/2019 No Stop Date Active Cymbalta 30 mg capsule,delayed release RxNorm: 183352 1 Capsule (s) Oral QAM 10/25/2019 No Stop Date Active levothyroxine 25 mcg tablet RxNorm: 164114 1 Tablet(s) Oral QAM 02/201910/24/2019 Inactive MS Contin 100 mg tablet,extended release RxNorm: 857408 1 Tablet(s) Oral two times a day replaces fentanyl 10/25/2019 10/25/2019 Inactive Premarin 0.45 mg tablet RxNorm: 956966 TAKE ONE TABLET BY MOUTH DAILY 10/24/2019 No Stop Date Active Duragesic 100 mcg/hr transdermal patch RxNorm: 375374 2 Application TD Q48H for pain 10/18/2019 10/24/2019 Inactive gabapentin 300 mg capsule RxNorm: 039068 TAKE ONE CAPSULE BY MO UTH TWICE A DAY 10/16/2019 No Stop Date Active cyclobenzaprine 10 mg tablet RxNorm: 117511 TAKE ONE TA BLET BY MOUTH THREE TIMES A DAY NEEDED 09/27/2019 11/20/2019 Inactive ProAir HFA 90 mcg/actuation aerosol inhaler RxNorm: 703513 INHALE ONE PUFF BY MOUTH EVERY 4 HOURS FOR WHEEZING OR FOR SHORTNESS OF BREATH 09/25/2019 No Stop Date Active furosemide 40 mg tablet RxNorm: 831331 1 Tablet(s) Oral QAM as needed 09/25/2019 09/25/2019 Inactive Relistor 150 mg tablet RxNorm: 5870054 TAKE THREE TABLETS BY BENOIT TH DAILY 09/25/2019 10/24/2019 Inactive oxycodone 15 mg tablet RxNorm: 8599314 1 Tablet(s) PO QID as nee ded for pain 09/21/2019 10/24/2019 Inactive Duragesic 100 mcg/hr transdermal patch RxNorm: 861332 2 Application TD Q48H for pain 09/19/2019 10/17/2019 Inactive Daliresp 500 mcg tablet RxNorm: 9389203 1 Tablet(s) Oral QD 019 03/08/2020 Active potassium chloride ER 20 mEq tablet,extended release RxNorm: 622332 TAKE ONE TABLET BY MOUTH DAILY 07/25/2019 01/20/2020 Active Relistor 150 mg tablet RxNorm: 8141102 TAKE THREE TABLETS BY BENOIT TH DAILY 07/25/2019 07/30/2019 Inactive cyclobenzaprine 10 mg tablet RxNorm: 006010 TAKE ONE TA BLET BY MOUTH THREE TIMES A DAY NEEDED 07/25/2019 09/22/2019 Inactive fluoxetine 40 mg capsule RxNorm: 199246 TAKE ONE CAPSULE BY BENOIT TH EVERY MORNING 07/11/2019 10/24/2019 Inactive Medrol (Aníbal) 4 mg tablets in a dose pack RxNorm: 203430 6 Tablet(s) PO QD --then as directed 07/10/2019 07/15/2019 Inactive omeprazole 40 mg capsule,delayed release RxNorm: 776528 1 Capsule(s) PO QD for stomach TAKE ONE CAPSULE BY MOUTH DAILY 07/10/2019 10/24/2019 Inactive Augmentin 875 mg-125 mg tablet RxNorm: 375987 1 Tablet(s) PO BID 07/16/2019 Inactive Trulicity 0.75 mg/0.5 mL subcutaneous pen injector RxNorm: 1 072226 0.75 Milliliter(s) SQ weekly 07/05/2019 10/24/2019 Inactive Compazine 10 mg tablet RxNorm: 910865 TAKE ONE TABLET B Y MOUTH FOUR TIMES A DAY NEEDED FOR NAUSEA 06/20/2019 07/19/2019 Inactive ProAir HFA 90 mcg/actuation aerosol inhaler RxNorm: 288890 INHALE ONE PUFF BY MOUTH EVERY 4 HOURS FOR WHEEZING OR FOR SHORTNESS OF BREATH 06/20/2019 06/23/2019 Inactive Daliresp 500 mcg tablet RxNorm: 1802789 TAKE ONE TABLET BY MOUTH DAILY 06/12/2019 09/10/2019 Inactive knajckvd-odhofqrcq-scnuuyeey 3.5 mg/mL-10,000 unit/mL- 1 % ear solution RxNorm: 615597 4 Drop(s) otic (ear) TID to left ear 06/05/2019 10/24/2019 Inac tive furosemide 40 mg tablet RxNorm: 498479 TAKE ONE TABLET BY MOUTH EVERY MORNING 05/26/2019 07/09/2019 Inactive Duragesic 100 mcg/hr transdermal patch RxNorm: 388136 2 Application TD Q48H for pain 05/16/2019 06/14/2019 Inactive oxycodone 15 mg tablet RxNorm: 4027470 1 Tablet(s) PO QID as nee ded for pain 05/10/2019 09/20/2019 Inactive doxycycline hyclate 100 mg capsule RxNorm: 1331672 1 Capsule(s) PO BID 05/03/2019 05/12/2019 Inactive prednisone 20 mg tablet RxNorm: 827065 1 Tablet(s) PO T ID for 3 days then 1 po BID for 3 days then one daily for 3 days 05/03/2019 07/11/2019 Inactiv e Ozempic 0.25 mg or 0.5 mg (2 mg/1.5 mL) subcutaneous p en injector RxNorm: 8378608 0.5 Milligram(s) SQ QW 05/03/2019 07/09/2019 Inactive fluconazole 100 mg tablet RxNorm: 428137 1 Tablet(s) PO QD 05/03/2005/07/2019 Inactive Premarin 0.45 mg tablet RxNorm: 927168 TAKE ONE TABLET BY MOUTH DAILY 05/03/2019 10/23/2019 Inactive potassium chloride ER 20 mEq tablet,extended release RxNorm: 549925 1 Tablet(s) PO QD 04/27/2019 07/25/2019 Inactive potassium chloride ER 20 mEq tablet,extended release RxNorm: 689512 1 Tablet(s) PO QD 04/25/2019 04/26/2019 Inactive Compazine 10 mg tablet RxNorm: 408737 1 Tablet(s) PO QID as nee ded for nausea 04/25/2019 05/04/2019 Inactive ProAir HFA 90 mcg/actuation aerosol inhaler RxNorm: 237458 INHALE ONE PUFF BY MOUTH EVERY 4 HOURS FOR WHEEZING OR FOR SHORTNESS OF BREATH 04/12/2019 06/10/2019 Inactive Medrol (Aníbal) 4 mg tablets in a dose pack RxNorm: 707761 6 Tablet(s) PO QD --then as directed 04/11/2019 04/16/2019 Inactive Symbicort 160 mcg-4.5 mcg/actuation HFA aerosol inhaler RxNo rm: 8936768 2 Puff(s) INH BID 04/10/2019 10/06/2019 Inactive levothyroxine 50 mcg tablet RxNorm: 804060 1 Tablet(s) PO QD 201810/24/2019 Inactive gabapentin 300 mg capsule RxNorm: 774276 1 Capsule(s) PO BID 201810/02/2019 Inactive Symbicort 160 mcg-4.5 mcg/actuation HFA aerosol inhaler RxNo rm: 2523762 2 Puff(s) INH BID 04/06/2019 04/09/2019 Inactive oxycodone 15 mg tablet RxNorm: 2288465 1 Tablet(s) PO QID as nee ded for pain 04/05/2019 05/09/2019 Inactive levothyroxine 50 mcg tablet RxNorm: 086070 1 Tablet(s) PO QD 201804/09/2019 Inactive furosemide 40 mg tablet RxNorm: 934269 TAKE ONE TABLET BY MOUTH EVERY MORNING 03/21/2019 04/19/2019 Inactive levothyroxine 50 mcg tablet RxNorm: 312949 TAKE ONE TABLET BY M OUTH DAILY 03/21/2019 03/27/2019 Inactive Duragesic 100 mcg/hr transdermal patch RxNorm: 215329 2 Application TD Q48H for pain 03/13/2019 04/11/2019 Inactive oxycodone 15 mg tablet RxNorm: 7601848 1 Tablet(s) PO QID as nee ded for pain 03/06/2019 04/04/2019 Inactive Relistor 150 mg tablet RxNorm: 5325465 3 Tablet(s) PO QD 02/28/2019 0 05/28/2019 Inactive cyclobenzaprine 10 mg tablet RxNorm: 315505 1 Tablet(s) PO TID as needed 02/28/2019 05/28/2019 Inactive phentermine 37.5 mg tablet RxNorm: 892574 1 Tablet(s) PO QAM 201803/15/2019 Inactive Duragesic 100 mcg/hr transdermal patch RxNorm: 112953 2 Application TD Q48H for pain 02/09/2019 03/10/2019 Inactive Daliresp 500 mcg tablet RxNorm: 4669738 TAKE ONE TABLET BY MOUTH DAILY 01/31/2019 05/30/2019 Inactive Premarin 0.45 mg tablet RxNorm: 931977 1 Tablet(s) PO QD 01/31/2019 0 04/30/2019 Inactive fluoxetine 40 mg capsule RxNorm: 930103 Capsule(s) TAKE ONE CAPSULE BY MOUTH EVERY MORNING 01/31/2019 04/30/2019 Inactive levothyroxine 50 mcg tablet RxNorm: 384558 1 Tablet(s) PO QD 201804/10/2019 Inactive follow up in 3 weeks levothyroxine 50 mcg tablet RxNorm: 333265 1 Tablet(s) PO QD 201801/25/2019 Inactive follow up in 3 weeks potassium chloride ER 20 mEq tablet,extended release RxNorm: 957276 2 Tablet(s) PO BID 01/23/2019 02/14/2019 Inactive Synthroid 50 mcg tablet RxNorm: 010581 TAKE ONE TABLET BY MOUTH DAILY 01/16/2019 10/24/2019 Inactive potassium chloride ER 20 mEq tablet,extended release RxNorm: 256178 2 Tablet(s) PO BID 01/04/2019 01/22/2019 Inactive ProAir HFA 90 mcg/actuation aerosol inhaler RxNorm: 889705 INHALE ONE PUFF BY MOUTH EVERY 4 HOURS FOR WHEEZING OR SHORTNESS OF BREATH 01/04/201902/20 Inactive Request already responded to by other me ans (e.g. phone or fax) ProAir HFA 90 mcg/actuation aerosol inhaler RxNorm: 0388769 INHALE ONE PUFF BY MOUTH EVERY 4 HOURS FOR WHEEZING OR SHORTNESS OF BREATH 01/02/201912/23 Inactive gabapentin 300 mg capsule RxNorm: 265021 TAKE ONE CAPSULE BY MO UTH TWICE A DAY 12/30/2018 04/06/2019 Inactive furosemide 40 mg tablet RxNorm: 371784 1 Tablet(s) PO QAM 12/26/2018 02/23/2019 Inactive Compazine 10 mg tablet RxNorm: 585430 1 Tablet(s) PO QID as nee ded for nausea 12/07/2018 12/16/2018 Inactive metolazone 2.5 mg tablet RxNorm: 810967 TAKE ONE TABLET BY MOUT H EVERY MORNING 12/05/2018 01/03/2019 Inactive metformin ER 500 mg tablet,extended release 24 hr RxNorm: 86 0975 TAKE ONE TABLET BY MOUTH DAILY 12/05/2018 04/10/2019 Inactive Synthroid 50 mcg tablet RxNorm: 590035 1 Tablet(s) PO QD 11/25/2018 0 01/03/2019 Inactive DC any other synthroid strengths. Should be 50mcg only cyclobenzaprine 10 mg tablet RxNorm: 032795 TAKE ONE TA BLET BY MOUTH THREE TIMES A DAY NEEDED 11/09/2018 02/06/2019 Inactive metolazone 2.5 mg tablet RxNorm: 073507 1 Tablet(s) PO QAM repl aces 5mg dose 11/02/2018 12/01/2018 Inactive potassium chloride ER 20 mEq tablet,extended release RxNorm: 412600 2 Tablet(s) PO QD 2018 01/02/2019 Inactive Compazine 10 mg tablet RxNorm: 580886 1 Tablet(s) PO QID as nee ded for nausea 10/18/2018 12/07/2018 Inactive furosemide 40 mg tablet RxNorm: 765610 1 Tablet(s) PO QAM 10/12/2018 12/10/2018 Inactive ondansetron 8 mg disintegrating tablet RxNorm: 995622 1 Tablet(s) PO Q6H as needed 10/11/2018 10/17/2018 Inactive scopolamine 1 mg over 3 days transdermal patch RxNorm: 68992 2 1 Application TD behind ear. Take off after three days 10/11/2018 01/02/2019 Inactive furosemide 40 mg tablet RxNorm: 056267 1 Tablet(s) PO QAM 10/10/2018 12/26/2018 Inactive metolazone 5 mg tablet RxNorm: 667921 1 Tablet(s) PO QAM 10/06/2018 1 01/03/2018 Inactive metolazone 5 mg tablet RxNorm: 787029 1 Tablet(s) PO QAM 10/06/2018 1 12/05/2017 Inactive Xtampza ER 36 mg capsule sprinkle RxNorm: 2397638 1 Capsule(s) P O BID 10/05/2018 01/02/2019 Inactive Xtampza ER 36 mg capsule sprinkle RxNorm: 5498855 1 Capsule(s) P O BID 10/05/2018 02/12/2019 Inactive omeprazole 40 mg capsule,delayed release RxNorm: 813691 TAKE ONE CAPSULE BY MOUTH DAILY 10/03/2018 12/31/2018 Inactive Duragesic 100 mcg/hr transdermal patch RxNorm: 547489 2 Application TD Q48H for pain 09/30/2018 10/29/2018 Inactive Synthroid 50 mcg tablet RxNorm: 998751 1 Tablet(s) PO QD 09/29/2018 0 11/25/2018 Inactive DC any other synthroid strengths. Should be 50mcg only Synthroid 50 mcg tablet RxNorm: 154141 1 Tablet(s) PO QD 09/29/2018 1 11/28/2017 Inactive furosemide 40 mg tablet RxNorm: 233242 2 Tablet(s) PO Q AM for 1 week then every other day for 2 weeks 09/27/2018 10/12/2018 Inactive fluoxetine 40 mg capsule RxNorm: 091176 2 Capsule(s) PO QD 09/27/20 18 10/17/2018 Inactive potassium chloride ER 20 mEq tablet,extended release RxNorm: 338780 2 Tablet(s) PO QD for 1 week then every other day for 2 weeks 09/27/2018 2018 Inactive ProAir HFA 90 mcg/actuation aerosol inhaler RxNorm: 1964091 INHALE ONE PUFF BY MOUTH EVERY 4 HOURS FOR WHEEZING OR SHORTNESS OF BREATH 09/26/201811/23 Inactive Synthroid 75 mcg tablet RxNorm: 277286 1 Tablet(s) PO QD 09/09/2018 1 Inactive Synthroid 75 mcg tablet RxNorm: 401411 1 Tablet(s) PO QD 09/09/2018 1 11/28/2017 Inactive furosemide 40 mg tablet RxNorm: 508018 1 Tablet(s) PO QD 09/06/2018 1 Inactive potassium chloride ER 20 mEq tablet,extended release RxNorm: 353974 1 Tablet(s) PO QD 09/06/2018 09/19/2018 Inactive Duragesic 100 mcg/hr transdermal patch RxNorm: 520321 2 Application TD Q48H for pain 08/30/2018 09/28/2018 Inactive gabapentin 300 mg capsule RxNorm: 465725 TAKE ONE CAPSULE BY MO [facility] TWICE A DAY 08/23/2018 12/20/2018 Inactive Daliresp 500 mcg tablet RxNorm: 8978124 TAKE ONE TABLET BY MOUTH DAILY 08/23/2018 01/19/2019 Inactive Pulmicort 1 mg/2 mL suspension for nebulization RxNorm: 6168 19 USE ONE VIAL VIA NEBULIZER BY MOUTH TWICE A DAY 08/23/2018 07/11/2019 Inactive Synthroid 88 mcg tablet RxNorm: 148349 1 Tablet(s) PO QD 08/19/2018 1 Inactive Medrol (Aníbal) 4 mg tablets in a dose pack RxNorm: 816663 Tablet(s) PO take as directed 08/16/2018 09/05/2018 Inactive Relistor 150 mg tablet RxNorm: 6166348 3 Tablet(s) PO QD 08/16/2018 1 Inactive Zithromax Z-Aníbal 250 mg tablet RxNorm: 753390 Tablet(s) PO take as directed 08/16/2018 09/05/2018 Inactive cyclobenzaprine 10 mg tablet RxNorm: 126614 1 Tablet(s) PO TID as needed 08/16/2018 11/08/2018 Inactive Synthroid 88 mcg tablet RxNorm: 684283 1 Tablet(s) PO Q D NEEDS UPDATED LABS BEFORE FURTHER REFILLS 08/08/2018 08/19/2018 Inactive Premarin 0.45 mg tablet RxNorm: 970037 1 Tablet(s) PO QD 08/03/2018 0 01/31/2019 Inactive fluoxetine 20 mg capsule RxNorm: 757506 TAKE ONE CAPSULE BY BENOIT TH DAILY 08/03/2018 09/26/2018 Inactive Xtampza ER 36 mg capsule sprinkle RxNorm: 8879993 1 Capsule(s) P O BID 08/03/2018 09/01/2018 Inactive metformin ER 500 mg tablet,extended release 24 hr RxNorm: 86 0975 1 Tablet(s) PO QD 08/03/2018 10/31/2018 Inactive Symbicort 160 mcg-4.5 mcg/actuation HFA aerosol inhaler RxNo rm: 9403781 2 Puff(s) INH BID 08/03/2018 01/29/2019 Inactive Duragesic 100 mcg/hr transdermal patch RxNorm: 125838 2 Application TD Q48H for pain 07/29/2018 08/27/2018 Inactive ProAir HFA 90 mcg/actuation aerosol inhaler RxNorm: 308531 INHALE TWO PUFFS BY MOUTH EVERY 4 HOURS FOR WHEEZING OR SHORTNESS OF BREATH 07/27/201802/2018 Inactive Relistor 150 mg tablet RxNorm: 3933079 3 Tablet(s) PO QD 07/20/2018 0 08/15/2018 Inactive metformin ER 500 mg tablet,extended release 24 hr RxNorm: 86 0975 TAKE ONE TABLET BY MOUTH DAILY 07/08/2018 08/02/2018 Inactive fluoxetine 40 mg capsule RxNorm: 045317 TAKE ONE CAPSULE BY BENOIT TH EVERY MORNING 07/08/2018 10/05/2018 Inactive Xtampza ER 18 mg capsule sprinkle RxNorm: 4449833 1 Capsule(s) P O BID 07/08/2018 08/02/2018 Inactive Relistor 150 mg tablet RxNorm: 4132069 3 Tablet(s) PO QD 07/08/2018 0 07/12/2018 Inactive Synthroid 88 mcg tablet RxNorm: 280407 1 Tablet(s) PO Q D NEEDS UPDATED LABS BEFORE FURTHER REFILLS 06/23/2018 07/07/2018 Inactive fluoxetine 40 mg capsule RxNorm: 419788 TAKE ONE CAPSULE BY BENIOT TH EVERY MORNING 06/15/2018 09/26/2018 Inactive orphenadrine citrate ER 100 mg tablet,extended release RxNor m: 873367 TAKE ONE TABLET BY MOUTH TWICE A DAY FOR MUSCLE SPASM 06/15/2018 08/15/2018 [place] [facility]ive Duragesic 100 mcg/hr transdermal patch RxNorm: 023852 2 Application TD Q48H for pain 05/30/2018 06/28/2018 Inactive ProAir HFA 90 mcg/actuation aerosol inhaler RxNorm: 075395 INHALE TWO PUFFS BY MOUTH EVERY 4 HOURS FOR WHEEZING OR SHORTNESS OF BREATH 05/19/201803/2018 Inactive Chantix Continuing Month Box 1 mg tablet RxNorm: 576249 TAKE ONE TABLET BY MOUTH TWICE A DAY 05/19/2018 08/15/2018 Inactive oxycodone 10 mg tablet RxNorm: 4389030 1-2 Tablet(s) PO QID as n eeded for pain 05/19/2018 07/07/2018 Inactive gabapentin 300 mg capsule RxNorm: 703634 TAKE ONE CAPSULE BY MO UTH TWICE A DAY 05/18/2018 07/16/2018 Inactive ProAir HFA 90 mcg/actuation aerosol inhaler RxNorm: 495076 INHALE TWO PUFFS BY MOUTH EVERY 4 HOURS FOR WHEEZING OR SHORTNESS OF BREATH 05/04/201804/23 Inactive Augmentin 500 mg-125 mg tablet RxNorm: 979488 1 Tablet(s) PO BID 05/03/2018 Inactive oxycodone 10 mg tablet RxNorm: 5311424 1-2 Tablet(s) PO QID as n eeded for pain 04/21/2018 05/18/2018 Inactive Synthroid 88 mcg tablet RxNorm: 661481 1 Tablet(s) PO QD 04/15/2018 0 08/08/2018 Inactive Symbicort 160 mcg-4.5 mcg/actuation HFA aerosol inhaler RxNo rm: 1884834 2 Puff(s) INH BID 04/15/2018 04/10/2019 Inactive Premarin 0.45 mg tablet RxNorm: 396460 1 Tablet(s) PO QD 04/15/2018 0 08/03/2018 Inactive ProAir HFA 90 mcg/actuation aerosol inhaler RxNorm: 833736 2 Puff(s) INH Q4H prn for wheezing or shortness of breath 04/15/2018 05/03/2018 Inactive metformin ER 500 mg tablet,extended release 24 hr RxNorm: 86 0975 1 Tablet(s) PO QD 04/11/2018 07/07/2018 Inactive omeprazole 40 mg capsule,delayed release RxNorm: 780730 TAKE ONE CAPSULE BY MOUTH DAILY 04/10/2018 06/08/2018 Inactive Synthroid 88 mcg tablet RxNorm: 552295 1 Tablet(s) PO QD 04/04/2018 0 04/14/2018 Inactive Synthroid 88 mcg tablet RxNorm: 697537 1 Tablet(s) PO QD 04/04/2018 0 04/03/2018 Inactive orphenadrine citrate ER 100 mg tablet,extended release RxNor m: 896452 1 Tablet(s) PO BID for muscle spasm 04/04/2018 05/03/2018 Inactive metformin ER 500 mg tablet,extended release 24 hr RxNorm: 86 0975 1 Tablet(s) PO QD NEEDS UPDATED LABS 03/31/2018 04/11/2018 Inactive doxycycline hyclate 100 mg capsule RxNorm: 2596916 1 Capsule(s) PO BID 03/31/2018 04/09/2018 Inactive prednisone 20 mg tablet RxNorm: 790017 3 Tablet(s) PO T ID for 3 days then 1 po BID for 3 days then one daily for 3 days 03/31/2018 07/06/2018 Inactiv e Chantix Continuing Month Box 1 mg tablet RxNorm: 406112 TAKE ONE TABLET BY MOUTH TWICE A DAY 03/25/2018 03/30/2018 Inactive oxycodone 10 mg tablet RxNorm: 2042747 1-2 Tablet(s) PO QID as n eeded for pain 03/21/2018 04/20/2018 Inactive Daliresp 500 mcg tablet RxNorm: 0422127 1 Tablet(s) PO QD 03/15/2018 08/22/2018 Inactive metformin ER 500 mg tablet,extended release 24 hr RxNorm: 86 0975 1 Tablet(s) PO QD NEEDS UPDATED LABS 03/14/2018 03/31/2018 Inactive nystatin 100,000 unit/mL oral suspension RxNorm: 275735 5 [place] liter(s) PO QID 03/02/2018 03/15/2018 Inactive nystatin 100,000 unit/mL oral suspension RxNorm: 906761 5 [place] liter(s) PO QID 03/02/2018 03/01/2018 Inactive oxycodone 10 mg tablet RxNorm: 9784741 1-2 Tablet(s) PO QID as n eeded for pain 02/16/2018 03/20/2018 Inactive fluoxetine 20 mg capsule RxNorm: 921159 1 Capsule(s) PO QD 02/15/20 18 08/02/2018 Inactive metformin ER 500 mg tablet,extended release 24 hr RxNorm: 86 0975 1 Tablet(s) PO QD Needs updated labs 02/14/2018 03/14/2018 Inactive cefdinir 300 mg capsule RxNorm: 519826 1 Capsule(s) PO BID 01/27/20 18 02/04/2018 Inactive orphenadrine citrate ER 100 mg tablet,extended release RxNor m: 588069 1 Tablet(s) PO BID for muscle spasm 01/26/2018 04/04/2018 Inactive gabapentin 300 mg capsule RxNorm: 595555 1 Capsule(s) PO BID 201704/17/2018 Inactive oxycodone 10 mg tablet RxNorm: 4705534 1-2 Tablet(s) PO QID as n eeded for pain 01/17/2018 02/15/2018 Inactive Duragesic 100 mcg/hr transdermal patch RxNorm: 771497 2 Application TD Q48H for pain 01/17/2018 02/15/2018 Inactive gabapentin 300 mg capsule RxNorm: 789940 TAKE ONE CAPSULE BY MO UTH TWICE A DAY 12/20/2017 01/18/2018 Inactive fluoxetine 40 mg capsule RxNorm: 694367 TAKE ONE CAPSULE BY BENOIT TH EVERY MORNING 12/15/2017 03/14/2018 Inactive OneTouch Ultra Test strips RxNorm: TEST DAILY 11/04/2017 02/01/2018 Inactive gabapentin 300 mg capsule RxNorm: 570775 1 Capsule(s) P O TID replaces BID dosing 10/26/2017 02/22/2018 Inactive oxycodone 10 mg tablet RxNorm: 9352612 1-2 Tablet(s) PO QID as n eeded for pain 10/18/2017 01/16/2018 Inactive Duragesic 100 mcg/hr transdermal patch RxNorm: 587013 2 Application TD Q48H for pain 10/18/2017 11/16/2017 Inactive gabapentin 300 mg capsule RxNorm: 183301 1 Capsule(s) PO BID 201610/25/2017 Inactive Abilify 5 mg tablet RxNorm: 535600 1 Tablet(s) PO QAM 09/23/201702/2017 Inactive gabapentin 300 mg capsule RxNorm: 719880 1 Capsule(s) PO BID 201610/17/2017 Inactive oxycodone 10 mg tablet RxNorm: 0887296 1-2 Tablet(s) PO QID as n eeded for pain 09/15/2017 10/17/2017 Inactive Duragesic 100 mcg/hr transdermal patch RxNorm: 137772 2 Application TD Q48H for pain 09/15/2017 10/14/2017 Inactive Duragesic 100 mcg/hr transdermal patch RxNorm: 607519 2 Application TD Q48H for pain 09/15/2017 10/24/2019 Inactive oxycodone 10 mg tablet RxNorm: 1740106 1-2 Tablet(s) PO QID as n eeded for pain 09/15/2017 08/15/2018 Inactive Daliresp 500 mcg tablet RxNorm: 1402723 1 Tablet(s) PO QD 09/06/2017 03/15/2018 Inactive Ventolin HFA 90 mcg/actuation aerosol inhaler RxNorm: 692191 2 Puff(s) INH Q4H as needed 09/02/2017 05/19/2018 Inactive oxycodone 10 mg tablet RxNorm: 8256068 1-2 Tablet(s) PO QID as n eeded for pain 08/17/2017 09/14/2017 Inactive Duragesic 100 mcg/hr transdermal patch RxNorm: 871154 2 Application TD Q48H for pain 08/17/2017 09/14/2017 Inactive fluoxetine 40 mg capsule RxNorm: 671076 Capsule(s) TAKE ONE CAPSULE BY MOUTH EVERY MORNING 08/17/2017 12/14/2017 Inactive Pulmicort 1 mg/2 mL suspension for nebulization RxNorm: 6168 19 1 Unit Dose INH BID Dx: COPD (J44.9) 08/16/2017 08/22/2018 Inactive gabapentin 300 mg capsule RxNorm: 088319 1 Capsule(s) PO QHS 201610/18/2017 Inactive fluoxetine 20 mg capsule RxNorm: 123452 1 Capsule(s) PO QD 08/12/20 17 02/14/2018 Inactive Abilify 2 mg tablet RxNorm: 033812 1 Tablet(s) PO QD TA KE ONE TABLET BY MOUTH DAILY 08/12/2017 10/25/2017 Inactive metformin ER 500 mg tablet,extended release 24 hr RxNorm: 86 0975 1 Tablet(s) PO QD 08/10/2017 02/14/2018 Inactive Synthroid 112 mcg tablet RxNorm: 001736 1 Tablet(s) PO QD 08/10/2017 04/15/2018 Inactive oxycodone 10 mg tablet RxNorm: 5291983 1-2 Tablet(s) PO QID as n eeded for pain 07/19/2017 08/16/2017 Inactive Duragesic 100 mcg/hr transdermal patch RxNorm: 120631 2 Application TD Q48H for pain 07/19/2017 08/16/2017 Inactive Ventolin HFA 90 mcg/actuation aerosol inhaler RxNorm: 541321 2 Puff(s) INH Q4H as needed 07/12/2017 09/02/2017 Inactive Abilify 2 mg tablet RxNorm: 705100 1 Tablet(s) PO QD TA KE ONE TABLET BY MOUTH DAILY 07/06/2017 08/11/2017 Inactive gabapentin 800 mg tablet RxNorm: 375638 1 Tablet(s) PO TID 06/22/20 17 07/05/2017 Inactive Chantix Starting Month Box 0.5 mg (11)-1 mg (42) table ts in dose pack RxNorm: 469689 TAKE BY MOUTH INSTRUCTED - PER PACKAGE INSTRUCTIONS 06/0707/04/2017 Inactive Ventolin HFA 90 mcg/actuation aerosol inhaler RxNorm: 160026 2 Puff(s) INH Q4H as needed 05/26/2017 07/12/2017 Inactive Duragesic 100 mcg/hr transdermal patch RxNorm: 786681 2 Application TD Q48H for pain 05/19/2017 06/17/2017 Inactive oxycodone 10 mg tablet RxNorm: 6550490 1-2 Tablet(s) PO QID as n eeded for pain 05/19/2017 07/18/2017 Inactive Abilify 2 mg tablet RxNorm: 842841 TAKE ONE TABLET BY MOUTH DAILY 0 05/10/2017 07/05/2017 Inactive Synthroid 112 mcg tablet RxNorm: 300694 1 Tablet(s) PO QD 05/06/2017 08/10/2017 Inactive metformin ER 500 mg tablet,extended release 24 hr RxNorm: 86 0975 1 Tablet(s) PO QD 05/06/2017 08/10/2017 Inactive Topamax 100 mg tablet RxNorm: 617198 1 Tablet(s) PO QHS 05/06/2017 Inactive Premarin 0.45 mg tablet RxNorm: 937996 1 Tablet(s) PO QD 05/06/2017 0 04/15/2018 Inactive orphenadrine citrate ER 100 mg tablet,extended release RxNor m: 721595 1 Tablet(s) PO TID for muscle spasm--replaces methocarbamol 04/29/2017 Inactive oxycodone 10 mg tablet RxNorm: 6829117 1-2 Tablet(s) PO QID as n eeded for pain 04/21/2017 05/18/2017 Inactive Duragesic 100 mcg/hr transdermal patch RxNorm: 955883 2 Application TD Q48H for pain 04/21/2017 05/18/2017 Inactive fluoxetine 40 mg capsule RxNorm: 062862 Capsule(s) TAKE ONE CAPSULE BY MOUTH EVERY MORNING 04/20/2017 08/17/2017 Inactive Ventolin HFA 90 mcg/actuation aerosol inhaler RxNorm: 865955 2 Puff(s) INH Q4H as needed 04/05/2017 05/26/2017 Inactive Symbicort 160 mcg-4.5 mcg/actuation HFA aerosol inhaler RxNo rm: 8542840 2 Puff(s) INH BID 03/30/2017 04/15/2018 Inactive Spiriva with HandiHaler 18 mcg and inhalation capsules RxNor m: 125075 1 Capsule(s) INH QD USING HANDIHALER 03/30/2017 02/12/2019 Inactive Duragesic 100 mcg/hr transdermal patch RxNorm: 428102 2 Application TD Q48H for pain 03/18/2017 04/16/2017 Inactive oxycodone 10 mg tablet RxNorm: 0997055 1-2 Tablet(s) PO QID as n eeded for pain 03/18/2017 04/20/2017 Inactive metformin ER 500 mg tablet,extended release 24 hr RxNorm: 86 0975 Tablet(s) TAKE ONE TABLET BY MOUTH DAILY 03/01/2017 05/06/2017 Inactive Premarin 0.45 mg tablet RxNorm: 771078 Tablet(s) TAKE ONE TABLE T BY MOUTH DAILY 03/01/2017 05/06/2017 Inactive Synthroid 112 mcg tablet RxNorm: 611187 Tablet(s) TAKE ONE TABLET BY MOUTH DAILY 03/01/2017 05/06/2017 Inactive Daliresp 500 mcg tablet RxNorm: 1665683 1 Tablet(s) PO QD 03/01/2017 09/06/2017 Inactive 16.2 mg-0.1037 mg-0.0194 mg tablet RxNorm: 5619740 Tablet(s) PO PRN for gas and cramping 02/23/2017 04/28/2017 Inactive TAKE TWO TABLET S BY MOUTH THREE TIMES A DAY NEEDED FOR GAS AND CRAMPING gabapentin 800 mg tablet RxNorm: 506089 1 Tablet(s) PO TID repl aces 600mg 02/23/2017 04/28/2017 Inactive Duragesic 100 mcg/hr transdermal patch RxNorm: 755579 2 Application TD Q48H for pain 02/17/2017 03/17/2017 Inactive fluoxetine 20 mg capsule RxNorm: 405080 1 Capsule(s) PO QD 02/18/20 17 08/12/2017 Inactive oxycodone 20 mg tablet RxNorm: 8936622 1 Tablet(s) PO QID as nee ded for pain 02/17/2017 03/17/2017 Inactive Ventolin HFA 90 mcg/actuation aerosol inhaler RxNorm: 685006 INHALE TWO PUFFS BY MOUTH EVERY 4 HOURS NEEDED 02/15/2017 04/05/2017 Inactive Silvadene 1 % topical cream RxNorm: 408218 1 Application TOP BI D to burn area 02/01/2017 09/22/2017 Inactive Topamax 100 mg tablet RxNorm: 148558 TAKE ONE TABLET BY MOUTH EVERY NIGHT AT BEDTIME 01/29/2017 05/06/2017 Inactive Chantix Starting Month Box 0.5 mg (11)-1 mg (42) table ts in dose pack RxNorm: 397622 Tablet(s) PO as directed 01/29/2017 06/01/2017 Inactive Abilify 2 mg tablet RxNorm: 299439 TAKE ONE TABLET BY MOUTH DAILY 0 01/26/2017 04/25/2017 Inactive Chantix Starting Month Box 0.5 mg (11)-1 mg (42) table ts in dose pack RxNorm: 717524 Tablet(s) PO as directed 01/20/2017 01/28/2017 Inactive gabapentin 600 mg tablet RxNorm: 545317 1 Tablet(s) PO TID 01/21/20 17 02/22/2017 Inactive Chantix Continuing Month Box 1 mg tablet RxNorm: 191740 1 Table t(s) PO BID 12/31/2016 06/01/2017 Inactive Spiriva with HandiHaler 18 mcg and inhalation capsules RxNor m: 494051 INHALE THE ENTIRE CONTENTS OF 1 CAPSULE ONCE A DAY USING HANDIHALER 12/31/201607/2017 Inactive Synthroid 112 mcg tablet RxNorm: 880686 TAKE ONE TABLET BY MOUT H DAILY 12/30/2016 03/01/2017 Inactive metformin ER 500 mg tablet,extended release 24 hr RxNorm: 86 0975 TAKE ONE TABLET BY MOUTH DAILY 12/30/2016 03/01/2017 Inactive Premarin 0.45 mg tablet RxNorm: 994534 TAKE ONE TABLET BY MOUTH DAILY 12/30/2016 03/01/2017 Inactive omeprazole 40 mg capsule,delayed release RxNorm: 902210 TAKE ONE CAPSULE BY MOUTH DAILY 12/30/2016 01/25/2018 Inactive Ventolin HFA 90 mcg/actuation aerosol inhaler RxNorm: 242196 INHALE TWO PUFFS BY MOUTH EVERY 4 HOURS NEEDED 12/28/2016 02/13/2017 Inactive fluoxetine 40 mg capsule RxNorm: 733860 TAKE ONE CAPSULE BY BENOIT TH EVERY MORNING 12/15/2016 04/20/2017 Inactive Chantix Continuing Month Box 1 mg tablet RxNorm: 068316 TAKE ONE TABLET BY MOUTH TWICE A DAY 12/04/2016 12/31/2016 Inactive doxycycline hyclate 100 mg capsule RxNorm: 7264038 1 Capsule(s) PO BID 12/01/2016 12/07/2016 Inactive Levaquin 750 mg tablet RxNorm: 411336 1 Tablet(s) PO QD 12/01/2016 Inactive Abilify 2 mg tablet RxNorm: 872701 TAKE ONE TABLET BY MOUTH DAILY 0 11/25/2016 11/30/2016 Inactive Ventolin HFA 90 mcg/actuation aerosol inhaler RxNorm: 046748 INHALE TWO PUFFS BY MOUTH EVERY 4 HOURS NEEDED 11/02/2016 12/19/2016 Inactive Chantix Continuing Month Box 1 mg tablet RxNorm: 379362 Tablet(s) PO as directed 10/30/2016 12/03/2016 Inactive Symbicort 160 mcg-4.5 mcg/actuation HFA aerosol inhaler RxNo rm: 8463983 INHALE TWO PUFFS TWO TIMES A DAY 10/30/2016 03/30/2017 Inactive Abilify 2 mg tablet RxNorm: 788207 1 Tablet(s) PO QD 10/27/201611/24 Inactive amoxicillin 500 mg capsule RxNorm: 961331 1 Capsule(s) PO TID 10/1410/23/2016 Inactive amoxicillin 500 mg capsule RxNorm: 632150 1 Capsule(s) PO TID 10/1410/13/2016 Inactive Synthroid 112 mcg tablet RxNorm: 178625 TAKE ONE TABLET BY MOUT H DAILY 09/28/2016 12/29/2016 Inactive Topamax 100 mg tablet RxNorm: 557970 TAKE ONE TABLET BY MOUTH EVERY NIGHT AT BEDTIME 09/28/2016 01/28/2017 Inactive Premarin 0.45 mg tablet RxNorm: 023991 TAKE ONE TABLET BY MOUTH DAILY 09/28/2016 12/29/2016 Inactive metformin ER 500 mg tablet,extended release 24 hr RxNorm: 86 0975 TAKE ONE TABLET BY MOUTH DAILY 09/28/2016 12/29/2016 Inactive Ventolin HFA 90 mcg/actuation aerosol inhaler RxNorm: 230799 INHALE TWO PUFFS BY MOUTH EVERY 4 HOURS NEEDED 09/22/2016 10/23/2016 Inactive Pulmicort 1 mg/2 mL suspension for nebulization RxNorm: 6168 19 1 Unit Dose INH BID Dx: COPD (J44.9) 09/10/2016 08/16/2017 Inactive Pulmicort 1 mg/2 mL suspension for nebulization RxNorm: 6168 19 1 Unit Dose INH BID 09/10/2016 09/09/2016 Inactive Brovana 15 mcg/2 mL solution for nebulization RxNorm: 192309 1 Unit Dose INH BID Dx: COPD (J44.9) 09/10/2016 01/25/2018 Inactive Brovana 15 mcg/2 mL solution for nebulization RxNorm: 502355 1 Unit Dose INH BID 09/10/2016 09/09/2016 Inactive ipratropium-albuterol 0.5 mg-3 mg(2.5 mg base)/3 mL ne bulization soln RxNorm: 1455517 1 Unit Dose INH Q4H as needed Dx: COPD (J44.9) 09/10/2016 0 02/12/2019 Inactive orphenadrine citrate ER 100 mg tablet,extended release RxNor m: 077719 1 Tablet(s) PO BID for muscle spasm--replaces methocarbamol 09/09/2016 Inactive Chantix Continuing Month Box 1 mg tablet RxNorm: 775240 Tablet(s) PO as directed 09/09/2016 10/30/2016 Inactive orphenadrine citrate ER 100 mg tablet,extended release RxNor m: 768098 1 Tablet(s) PO BID for muscle spasm 09/09/2016 09/08/2016 Inactive Spiriva with HandiHaler 18 mcg and inhalation capsules RxNor m: 893676 INHALE THE ENTIRE CONTENTS OF 1 CAPSULE ONCE A DAY USING HANDIHALER 09/01/201605/2017 Inactive Daliresp 500 mcg tablet RxNorm: 5175510 1 Tablet(s) PO QD 08/27/2016 03/01/2017 Inactive prednisone 20 mg tablet RxNorm: 680931 3 Tablet(s) PO T ID for 3 days then 1 po BID for 3 days then one daily for 3 days 08/26/2016 04/28/2017 Inactiv e Wellbutrin XL 300 mg 24 hr tablet, extended release RxNorm: 385537 TAKE ONE TABLET BY MOUTH EVERY MORNING 07/29/2016 10/26/2016 Inactive gabapentin 600 mg tablet RxNorm: 485977 1 Tablet(s) PO BID 06/26/20 16 12/22/2016 Inactive fluoxetine 40 mg capsule RxNorm: 263838 TAKE ONE CAPSULE BY BENOIT TH EVERY MORNING 06/24/2016 11/20/2016 Inactive Duragesic 100 mcg/hr transdermal patch RxNorm: 033295 2 Application TD Q48H for pain 06/05/2016 07/04/2016 Inactive oxycodone 10 mg tablet RxNorm: 3081686 1-2 Tablet(s) PO QID as n eeded for pain 06/05/2016 03/17/2017 Inactive Belladonna-Phenobarbital 48 mg tablet,extended release RxNor m: 2 Tablet(s) PO TID 06/05/2016 01/19/2017 Inactive Premarin 0.45 mg tablet RxNorm: 696386 TAKE ONE TABLET BY MOUTH DAILY 05/27/2016 09/23/2016 Inactive Topamax 100 mg tablet RxNorm: 753108 TAKE ONE TABLET BY MOUTH EVERY NIGHT AT BEDTIME 05/27/2016 09/27/2016 Inactive Synthroid 112 mcg tablet RxNorm: 401483 TAKE ONE TABLET BY MOUT H DAILY 05/27/2016 09/23/2016 Inactive metformin ER 500 mg tablet,extended release 24 hr RxNorm: 86 0975 TAKE ONE TABLET BY MOUTH DAILY 05/27/2016 09/23/2016 Inactive Symbicort 160 mcg-4.5 mcg/actuation HFA aerosol inhaler RxNo rm: 7418710 INHALE TWO PUFFS TWO TIMES A DAY 05/27/2016 10/23/2016 Inactive Ventolin HFA 90 mcg/actuation aerosol inhaler RxNorm: 924357 INHALE TWO PUFFS BY MOUTH EVERY 4 HOURS NEEDED 05/21/2016 07/07/2016 Inactive omeprazole 40 mg capsule,delayed release RxNorm: 829365 1 Capsu le(s) PO QD 05/06/2016 08/03/2016 Inactive metformin ER 500 mg tablet,extended release 24 hr RxNorm: 86 0975 TAKE ONE TABLET BY MOUTH DAILY 04/23/2016 05/22/2016 Inactive methocarbamol 750 mg tablet RxNorm: 293073 2 Tablet(s) PO TID as needed for muscle spasm 04/23/2016 09/08/2016 Inactive Synthroid 112 mcg tablet RxNorm: 013857 TAKE ONE TABLET BY MOUT H DAILY 04/23/2016 05/22/2016 Inactive Spiriva with HandiHaler 18 mcg and inhalation capsules RxNor m: 192847 INHALE THE ENTIRE CONTENTS OF 1 CAPSULE ONCE A DAY USING HANDIHALER 04/09/201608/2016 Inactive Diflucan 100 mg tablet RxNorm: 924289 1 Tablet(s) PO QD 04/08/2016 Inactive doxycycline hyclate 100 mg capsule RxNorm: 7471425 1 Capsule(s) PO BID 04/08/2016 04/17/2016 Inactive doxycycline hyclate 100 mg capsule RxNorm: 0739095 1 Capsule(s) PO BID 04/08/2016 04/07/2016 Inactive Diflucan 100 mg tablet RxNorm: 486506 1 Tablet(s) PO QD 04/08/2016 Inactive ondansetron HCl 4 mg tablet RxNorm: 323144 1 Tablet(s) PO Q4H as needed for nausea and vomiting 04/08/2016 09/22/2017 Inactive gabapentin 600 mg tablet RxNorm: 651238 TAKE ONE TABLET BY MOUT H TWICE A DAY 03/24/2016 06/25/2016 Inactive Synthroid 112 mcg tablet RxNorm: 606472 TAKE ONE TABLET BY MOUT H DAILY 02/25/2016 04/22/2016 Inactive Levaquin 500 mg tablet RxNorm: 930997 1 Tablet(s) PO QD 01/23/2016 Inactive prednisone 20 mg tablet RxNorm: 012803 1 Tablet(s) PO T ID for 3 days then 1 po BID for 3 days then one daily for 3 days 01/23/2016 08/25/2016 Inactiv e 1000memories Ultra Test strips RxNorm: TEST BLOOD SUGAR ONCE DAILY 250.00 01/09/2016 11/04/2017 Inactive methocarbamol 750 mg tablet RxNorm: 503908 2 Tablet(s) PO TID as needed for muscle spasm 01/09/2016 04/23/2016 Inactive lactulose 10 gram/15 mL oral solution RxNorm: 438947 [address](s) PO QD 01/09/2016 09/22/2017 Inactive TAKE 1 TABLESPOON BY MOUTH ONCE DAILY metformin ER 500 mg tablet,extended release 24 hr RxNorm: 86 0975 1 Tablet(s) PO QD 12/26/2015 04/22/2016 Inactive fluoxetine 20 mg capsule RxNorm: 580837 1 Capsule(s) PO QD 12/23/19 16 06/19/2016 Inactive Premarin 0.45 mg tablet RxNorm: 056715 TAKE ONE TABLET BY MOUTH DAILY 12/23/2015 05/20/2016 Inactive fluoxetine 40 mg capsule RxNorm: 275744 1 Capsule(s) PO QD 12/23/19 16 06/19/2016 Inactive TAKE ONE CAPSULE BY MOUTH EV JANKI MORNING azithromycin 500 mg tablet RxNorm: 361498 1 Tablet(s) PO QD 016 12/19/2015 Inactive Zofran 4 mg tablet RxNorm: 314925 1 Tablet(s) PO Q4H prn nausea /vomiting 12/13/2015 03/30/2018 Inactive azithromycin 500 mg tablet RxNorm: 091108 1 Tablet(s) PO QD 016 12/12/2015 Inactive Duragesic 100 mcg/hr transdermal patch RxNorm: 947451 2 Application TD Q48H for pain 12/09/2015 01/07/2016 Inactive oxycodone 10 mg tablet RxNorm: 4303475 1-2 Tablet(s) PO QID as n eeded for pain 12/09/2015 06/04/2016 Inactive Bactroban 2 % topical cream RxNorm: 981744 Application TOP BID 11/2208/25/2016 Inactive doxycycline hyclate 100 mg capsule RxNorm: 7494344 1 Capsule(s) PO BID 12/03/2015 12/12/2015 Inactive Topamax 100 mg tablet RxNorm: 086342 TAKE ONE TABLET BY MOUTH EVERY NIGHT AT BEDTIME 11/25/2015 05/22/2016 Inactive Symbicort 160 mcg-4.5 mcg/actuation HFA aerosol inhaler RxNo rm: 4581981 INHALE TWO PUFFS TWO TIMES A DAY 11/25/2015 05/22/2016 Inactive Synthroid 112 mcg tablet RxNorm: 920737 Tablet(s) TAKE ONE TABLET BY MOUTH DAILY 11/25/2015 02/22/2016 Inactive omeprazole 40 mg capsule,delayed release RxNorm: 703617 1 Capsu le(s) PO QD 11/12/2015 05/05/2016 Inactive oxycodone 10 mg tablet RxNorm: 1216643 1-2 Tablet(s) PO QID as n eeded for pain 11/05/2015 12/08/2015 Inactive Duragesic 100 mcg/hr transdermal patch RxNorm: 260071 2 Application TD Q48H for pain 11/05/2015 12/04/2015 Inactive omeprazole 40 mg capsule,delayed release RxNorm: 034327 1 Capsu le(s) PO QD 10/07/2015 11/11/2015 Inactive Januvia 100 mg tablet RxNorm: 073942 TAKE ONE TABLET BY MOUTH DAILY 09/11/2015 12/25/2015 Inactive Zithromax 500 mg tablet RxNorm: 432777 1 Tablet(s) PO QD 09/10/2015 1 Inactive prednisone 20 mg tablet RxNorm: 221423 1 Tablet(s) PO T ID for 3 days then 1 po BID for 3 days then one daily for 3 days 09/10/2015 08/25/2016 Inactiv e Wellbutrin XL 300 mg 24 hr tablet, extended release RxNorm: 336031 1 Tablet(s) PO QAM 09/10/2015 12/02/2015 Inactive Topamax 100 mg tablet RxNorm: 851136 TAKE ONE TABLET BY MOUTH EVERY NIGHT AT BEDTIME 09/02/2015 11/24/2015 Inactive Synthroid 112 mcg tablet RxNorm: 573986 TAKE ONE TABLET BY MOUT H DAILY 09/02/2015 11/25/2015 Inactive methocarbamol 750 mg tablet RxNorm: 289259 2 Tablet(s) PO TID as needed for muscle spasm 08/15/2015 01/09/2016 Inactive Wellbutrin XL 150 mg 24 hr tablet, extended release RxNorm: 022894 TAKE ONE TABLET BY MOUTH EVERY MORNING 08/13/2015 08/13/2015 Inactive gabapentin 600 mg tablet RxNorm: 931123 1 Tablet(s) PO BID 08/13/20 15 02/08/2016 Inactive Wellbutrin XL 300 mg 24 hr tablet, extended release RxNorm: 399744 1 Tablet(s) PO QAM 08/06/2015 09/09/2015 Inactive Wellbutrin XL 150 mg 24 hr tablet, extended release RxNorm: 349180 1 Tablet(s) PO QAM 07/18/2015 08/05/2015 Inactive prednisone 20 mg tablet RxNorm: 730998 1 Tablet(s) PO BID 07/18/2015 07/22/2015 Inactive doxycycline hyclate 100 mg tablet,delayed release RxNorm: 43 4018 1 Tablet(s) PO BID 07/18/2015 07/27/2015 Inactive pravastatin 40 mg tablet RxNorm: 264401 1 Tablet(s) PO QD NEEDS FASTING LAB 07/15/2015 07/14/2015 Inactive pravastatin 40 mg tablet RxNorm: 854799 1 Tablet(s) PO QD NEEDS FASTING LAB 07/15/2015 01/25/2018 Inactive Ventolin HFA 90 mcg/actuation aerosol inhaler RxNorm: 554277 2 Puff(s) INH Q4H 07/08/2015 07/07/2015 Inactive prn Premarin 0.45 mg tablet RxNorm: 783057 1 Tablet(s) PO QD 07/01/2015 0 12/22/2015 Inactive pravastatin 40 mg tablet RxNorm: 029861 1 Tablet(s) PO QD NEEDS FASTING LAB 06/14/2015 07/15/2015 Inactive Ventolin HFA 90 mcg/actuation aerosol inhaler RxNorm: 8917019 2 Puff(s) INH Q4H 06/06/2015 07/08/2015 Inactive prn albuterol sulfate 2.5 mg/3 mL (0.083 %) solution for n ebulization RxNorm: 198614 1 Unit Dose INH QID 05/30/2015 No Stop Date Active Duragesic 100 mcg/hr transdermal patch RxNorm: 975555 2 Application TD Q48H for pain 04/29/2015 05/28/2015 Inactive gabapentin 600 mg tablet RxNorm: 212705 1 Tablet(s) PO BID 04/11/20 15 08/13/2015 Inactive Onglyza 5 mg tablet RxNorm: 971839 1 Tablet(s) PO QD for blood suga r 04/10/2015 04/15/2015 Inactive [Brand Copay Card: RxBIN:[id number] PCN:CRISTIANA RxGRP:[id number] ID#:[id number]] methocarbamol 750 mg tablet RxNorm: 135848 2 Tablet(s) PO TID as needed for muscle spasm 03/28/2015 08/15/2015 Inactive pravastatin 40 mg tablet RxNorm: 294050 1 Tablet(s) PO QD 03/19/2015 03/18/2015 Inactive pravastatin 40 mg tablet RxNorm: 913671 1 Tablet(s) PO QD 03/19/2015 06/14/2015 Inactive lactulose 10 gram/15 mL oral solution RxNorm: 420802 [address]s) PO QD 03/07/2015 01/09/2016 Inactive TAKE 1 TABLESPOON BY MOUTH ONCE DAILY oxycodone 20 mg tablet RxNorm: 6659823 1 Tablet(s) PO QID as nee ded for pain 03/05/2015 07/08/2015 Inactive Topamax 100 mg tablet RxNorm: 325564 1 Tablet(s) PO QHS TAKE ONE TABLET BY MOUTH AT BEDTIME 02/25/2015 02/12/2019 Inactive metformin ER 500 mg tablet,extended release 24 hr RxNorm: 86 0975 1 Tablet(s) PO QD 02/11/2015 03/04/2015 Inactive take one tablet by mouth every day Daliresp 500 mcg tablet RxNorm: 0860312 1 Tablet(s) PO QD 02/11/2015 08/09/2015 Inactive Endocet 10 mg-325 mg tablet RxNorm: 3595986 1 Tablet(s) PO Q4H as needed for pain 01/23/2015 01/23/2015 Inactive gabapentin 600 mg tablet RxNorm: 383739 1 Tablet(s) PO BID 01/23/20 15 04/11/2015 Inactive methocarbamol 750 mg tablet RxNorm: 091832 2 Tablet(s) PO TID as needed for muscle spasm 01/15/2015 02/13/2015 Inactive fluoxetine 40 mg capsule RxNorm: 585040 1 Capsule(s) PO QD 01/14/20 15 12/23/2015 Inactive TAKE ONE CAPSULE BY MOUTH EV JANKI MORNING fluoxetine 20 mg capsule RxNorm: 542095 1 Capsule(s) PO QD 01/14/20 15 12/23/2015 Inactive Premarin 0.45 mg tablet RxNorm: 669671 1 Tablet(s) PO QD 01/02/2015 0 07/01/2015 Inactive Endocet 10 mg-325 mg tablet RxNorm: 7295040 1-2 Tablet(s) PO Q4H 02/12/2019 Inactive PRN PAIN Duragesic 100 mcg/hr transdermal patch RxNorm: 231392 2 Application TD Q48H for pain 12/25/2014 01/23/2015 Inactive Topamax 100 mg tablet RxNorm: 481255 1 Tablet(s) PO QHS TAKE ONE TABLET BY MOUTH AT BEDTIME 12/25/2014 02/24/2015 Inactive Tudorza Pressair 400 mcg/actuation breath activated RxNorm: 3596161 1 BID INHALE ONE PUFF INTO LUNGS TWO TIMES A DAY 12/17/2014 05/15/2015 Inactive Endocet 10 mg-325 mg tablet RxNorm: 5580644 1-2 Tablet(s) PO Q4H 12/19/2014 Inactive PRN PAIN Duragesic 100 mcg/hr transdermal patch RxNorm: 534362 2 Application TD Q48H for pain 11/20/2014 12/24/2014 Inactive OneTouch Ultra Test strips RxNorm: TEST BLOOD SUGAR ONCE DAILY 250.00 11/16/2014 01/08/2016 Inactive omeprazole 40 mg capsule,delayed release RxNorm: 910825 1 Capsu le(s) PO QD 11/13/2014 11/12/2015 Inactive metformin ER 500 mg tablet,extended release 24 hr RxNorm: 86 0975 1 Tablet(s) PO QD 11/12/2014 02/11/2015 Inactive take one tablet by mouth every day Symbicort 160 mcg-4.5 mcg/actuation HFA aerosol inhaler RxNo rm: 7912902 2 Puff(s) INH BID 11/12/2014 03/11/2015 Inactive INHALE 2 PUFFS O RALLY TWO TIMES A DAY gabapentin 800 mg tablet RxNorm: 453677 1 Tablet(s) PO QD TAKE ONE TABLET BY MOUTH ONCE A DAY 10/22/2014 01/01/2015 Inactive Endocet 10 mg-325 mg tablet RxNorm: 5604870 1-2 Tablet(s) PO Q4H 11/15/2014 Inactive PRN PAIN Duragesic 100 mcg/hr transdermal patch RxNorm: 592200 2 Application TD Q48H for pain 10/17/2014 11/19/2014 Inactive gabapentin 800 mg tablet RxNorm: 184067 1 Tablet(s) PO QD TAKE ONE TABLET BY MOUTH ONCE A DAY 10/04/2014 10/21/2014 Inactive Premarin 0.9 mg tablet RxNorm: 144630 1 Tablet(s) PO QD TAKE ONE TABLET BY MOUTH ONCE A DAY 10/04/2014 01/01/2015 Inactive Spiriva with HandiHaler 18 mcg & inhalation capsules RxNorm: 931050 1 Capsule(s) INH QD 10/03/2014 04/30/2015 Inactive Levaquin 500 mg tablet RxNorm: 820219 1 Tablet(s) PO QD 10/03/2014 Inactive prednisone 20 mg tablet RxNorm: 735589 1 Tablet(s) PO QD 10/03/201412/09/2013 Inactive Duragesic 100 mcg/hr transdermal patch RxNorm: 755744 2 Application TD Q48H for pain 09/18/2014 10/16/2014 Inactive Endocet 10 mg-325 mg tablet RxNorm: 5425369 1-2 Tablet(s) PO Q4H 10/16/2014 Inactive PRN PAIN Synthroid 112 mcg tablet RxNorm: 435548 1 Tablet(s) QD 09/10/2014 Inactive Synthroid 112 mcg tablet RxNorm: 164415 TAKE ONE TABLET BY MOUTH ONE TIME A DAY. NEEDS LABS 09/10/2014 02/06/2015 Inactive omeprazole 40 mg capsule,delayed release RxNorm: 298257 1 Capsu le(s) PO QD 09/03/2014 11/13/2014 Inactive omeprazole 40 mg capsule,delayed release RxNorm: 600816 1 Capsu le(s) PO QD 09/03/2014 09/02/2014 Inactive Spiriva with HandiHaler 18 mcg & inhalation capsules RxNorm: 863021 1 Capsule(s) INH QD 08/27/2014 10/02/2014 Inactive gabapentin 600 mg tablet RxNorm: 942368 1 Tablet(s) PO BID 08/27/20 14 10/22/2014 Inactive Endocet 10 mg-325 mg tablet RxNorm: 4454071 1-2 Tablet(s) PO Q4H 09/17/2014 Inactive PRN PAIN fentanyl 100 mcg/hr transdermal patch RxNorm: 709978 1 Unit Dos e TD QD 08/21/2014 09/19/2014 Inactive Daliresp 500 mcg tablet RxNorm: 5804590 1 Tablet(s) PO QD 08/13/2014 02/11/2015 Inactive Synthroid 112 mcg tablet RxNorm: 291062 TAKE ONE TABLET BY MOUTH ONE TIME A DAY. NEEDS LABS 08/10/2014 09/10/2014 Inactive Endocet 10 mg-325 mg tablet RxNorm: 3817562 1-2 Tablet(s) PO Q4H 08/17/2014 Inactive PRN PAIN Duragesic 100 mcg/hr transdermal patch RxNorm: 701352 2 Application TD Q48H for pain 07/19/2014 09/17/2014 Inactive fluoxetine 40 mg capsule RxNorm: 363747 1 Capsule(s) PO QD 07/17/20 14 01/14/2015 Inactive TAKE ONE CAPSULE BY MOUTH EV JANKI MORNING fluoxetine 20 mg capsule RxNorm: 928705 1 Capsule(s) PO QD 07/17/20 14 01/14/2015 Inactive Spiriva with HandiHaler 18 mcg & inhalation capsules RxNorm: 731434 1 Capsule(s) INH QD 07/17/2014 08/26/2014 Inactive INHALE CONTENTS OF 1 CAPSULE(S) WITH HANDIHALER ONCE DAILY Zofran 4 mg tablet RxNorm: 896247 1 Tablet(s) PO Q4H prn nausea 07/25/2014 Inactive Synthroid 112 mcg tablet RxNorm: 407773 1 Tablet(s) PO QD 07/09/2014 07/09/2014 Inactive methocarbamol 750 mg tablet RxNorm: 005917 2 Tablet(s) PO TID as needed for muscle spasm 07/09/2014 09/06/2014 Inactive Synthroid 112 mcg tablet RxNorm: 586852 1 Tablet(s) PO QD - are d labs 07/09/2014 08/07/2014 Inactive Medrol (Aníbal) 4 mg tablets in a dose pack RxNorm: 636763 6 Tablet(s) PO QD --then as directed 07/03/2014 07/08/2014 Inactive Tudorza Pressair 400 mcg/actuation breath activated RxNorm: 1005439 1 Puff(s) INH BID 07/03/2014 12/17/2014 Inactive cefdinir 300 mg capsule RxNorm: 572016 1 Capsule(s) PO BID 07/03/20 14 07/12/2014 Inactive Topamax 100 mg tablet RxNorm: 856619 Tablet(s) TAKE ONE TABLET BY MOUTH AT BEDTIME 07/02/2014 02/25/2015 Inactive Duragesic 100 mcg/hr transdermal patch RxNorm: 723768 2 Application TD Q48H for pain 06/25/2014 07/18/2014 Inactive Endocet 10 mg-325 mg tablet RxNorm: 8899067 1-2 Tablet(s) PO Q4H 07/18/2014 Inactive PRN PAIN metformin ER 500 mg tablet,extended release 24 hr RxNorm: 86 0975 1 Tablet(s) PO QD Needs labs 06/18/2014 07/01/2014 Inactive take one tablet by mouth every day Duragesic 100 mcg/hr transdermal patch RxNorm: 005207 2 Application TD Q48H for pain 05/22/2014 06/24/2014 Inactive Synthroid 112 mcg tablet RxNorm: 213030 1 Tablet(s) PO QD 05/22/2014 07/09/2014 Inactive Endocet 10 mg-325 mg tablet RxNorm: 7501465 1-2 Tablet(s) PO Q4H 06/20/2014 Inactive PRN PAIN Endocet 10 mg-325 mg tablet RxNorm: 3295612 1-2 Tablet(s) PO Q4H 05/21/2014 Inactive PRN PAIN Duragesic 100 mcg/hr transdermal patch RxNorm: 212894 2 Application TD Q48H for pain 04/25/2014 05/21/2014 Inactive Daliresp 500 mcg tablet RxNorm: 5963561 1 Tablet(s) PO QD 04/24/2014 08/13/2014 Inactive Symbicort 160 mcg-4.5 mcg/actuation HFA aerosol inhaler RxNo rm: 4593056 2 Puff(s) INH BID 04/24/2014 08/21/2014 Inactive INHALE 2 PUFFS O RALLY TWO TIMES A DAY metformin ER 500 mg tablet,extended release 24 hr RxNorm: 86 0975 1 Tablet(s) PO QD 04/24/2014 11/12/2014 Inactive TAKE ONE TABLET BY MOUTH EVERY DAY [AttnRPh:Saving Apply/Adjudicate RxGRP:LDMGRP RxBIN:[id number] RxPCN:2012 PCode: ID#:[id number]] Symbicort 160 mcg-4.5 mcg/actuation HFA aerosol inhaler RxNo rm: [id number] 2 Puff(s) INH BID 04/24/2014 11/12/2014 Inactive INHALE 2 PUFFS O RALLY TWO TIMES A DAY Premarin 0.9 mg tablet RxNorm: 726858 1 Tablet(s) PO QD 04/24/2014 Inactive TAKE ONE TABLET BY MOUTH EVERY DAY metformin ER 500 mg tablet,extended release 24 hr RxNorm: 86 0975 1 Tablet(s) PO QD Needs labs 04/24/2014 06/18/2014 Inactive TAKE ONE TABLET BY MOUTH EVERY DAY [AttnRPh:Saving Apply/Adjudicate RxGRP:LDMGRP RxBIN:[id number] RxPCN:2012 PCode: ID#:[id number]] gabapentin 800 mg tablet RxNorm: 053736 1 Tablet(s) PO QD 04/24/2014 10/04/2014 Inactive TAKE ONE TABLET BY MOUTH EVERY DAY Topamax 100 mg tablet RxNorm: 470205 1 Tablet(s) PO QHS 04/17/2014 Inactive Topamax 100 mg tablet RxNorm: 369116 TAKE ONE TABLET BY MOUTH A T BEDTIME 04/17/2014 07/01/2014 Inactive Tudorza Pressair 400 mcg/actuation breath activated RxNorm: 9014316 1 Puff(s) INH BID 04/11/2014 07/02/2014 Inactive Duragesic 100 mcg/hr transdermal patch RxNorm: 898228 2 Application TD Q48H for pain 03/27/2014 04/24/2014 Inactive Endocet 10 mg-325 mg tablet RxNorm: 0840274 1-2 Tablet(s) PO Q4H 04/24/2014 Inactive PRN PAIN Robaxin 750 mg tablet RxNorm: 780750 2 Tablet(s) PO TID as need ed for spasm 02/23/2014 03/28/2015 Inactive Duragesic 100 mcg/hr transdermal patch RxNorm: 842421 2 Application TD Q48H for pain 02/23/2014 No Stop Date Active Endocet 10 mg-325 mg tablet RxNorm: 9669206 1-2 Tablet(s) PO Q4H 03/23/2014 Inactive PRN PAIN Synthroid 112 mcg tablet RxNorm: 682882 1 Tablet(s) PO QD TAKE ONE TABLET BY MOUTH EVERY DAY 02/15/2014 05/22/2014 Inactive Zithromax 500 mg tablet RxNorm: 815170 1 Tablet(s) PO QD 01/30/2014 0 02/05/2014 Inactive Diflucan 100 mg tablet RxNorm: 645332 1 Tablet(s) PO QD 01/30/2014 Inactive prednisone 20 mg tablet RxNorm: 296749 1 Tablet(s) PO BID 01/30/2014 02/05/2014 Inactive fluoxetine 40 mg capsule RxNorm: 109168 1 Capsule(s) PO QD 01/23/20 14 07/16/2014 Inactive TAKE ONE CAPSULE BY MOUTH EV JANKI MORNING fluoxetine 40 mg capsule RxNorm: 903799 1 Capsule(s) PO QD 01/23/20 14 07/17/2014 Inactive TAKE ONE CAPSULE BY MOUTH EV JANKI MORNING cefdinir 300 mg capsule RxNorm: 038630 1 Capsule(s) PO BID 01/16/20 14 01/29/2014 Inactive Zithromax 500 mg tablet RxNorm: 448782 1 Tablet(s) PO QD 01/16/2014 0 01/22/2014 Inactive prednisone 20 mg tablet RxNorm: 588523 1 Tablet(s) PO BID 01/16/2014 01/22/2014 Inactive Spiriva with HandiHaler 18 mcg and inhalation capsules RxNor m: 959631 1 Capsule(s) INH QD 12/18/2013 07/17/2014 Inactive INHALE CONTENT S OF 1 CAPSULE(S) WITH HANDIHALER ONCE DAILY fluoxetine 20 mg capsule RxNorm: 714777 1 Capsule(s) PO QD 12/18/19 14 06/15/2014 Inactive Spiriva with HandiHaler 18 mcg & inhalation capsules RxNorm: 214135 1 Capsule(s) INH QD 12/18/2013 06/15/2014 Inactive INHALE CONTENTS OF 1 CAPSULE(S) WITH HANDIHALER ONCE DAILY fluoxetine 20 mg capsule RxNorm: 583683 1 Capsule(s) PO QD 12/18/19 14 07/17/2014 Inactive cefdinir 300 mg capsule RxNorm: 882363 2 Capsule(s) PO QD 12/12/2013 12/21/2013 Inactive Duragesic 100 mcg/hr transdermal patch RxNorm: 954556 2 Application TD Q48H for pain 12/08/2013 12/07/2013 Inactive Topamax 100 mg tablet RxNorm: 743119 1 Tablet(s) PO QHS 12/04/2013 Inactive Endocet 10 mg-325 mg tablet RxNorm: 8669785 1-2 Tablet(s) PO Q4H 12/26/2013 Inactive PRN PAIN Robaxin 750 mg tablet RxNorm: 412776 2 Tablet(s) PO TID as need ed for spasm 11/07/2013 01/05/2014 Inactive gabapentin 800 mg tablet RxNorm: 301653 1 Tablet(s) PO QD 10/16/2013 04/24/2014 Inactive TAKE ONE TABLET BY MOUTH EVERY DAY Symbicort 160 mcg-4.5 mcg/actuation HFA aerosol inhaler RxNo rm: 4687697 2 Puff(s) INH BID 10/16/2013 04/24/2014 Inactive INHALE 2 PUFFS O RALLY TWO TIMES A DAY Premarin 0.9 mg tablet RxNorm: 867276 1 Tablet(s) PO QD 10/16/2013 Inactive TAKE ONE TABLET BY MOUTH EVERY DAY metformin ER 500 mg tablet,extended release 24 hr RxNorm: 86 0975 1 Tablet(s) PO QD 10/16/2013 04/24/2014 Inactive TAKE ONE TABLET BY MOUTH EVERY DAY Daliresp 500 mcg tablet RxNorm: 6615684 1 Tablet(s) PO QD 10/16/2013 04/24/2014 Inactive Robaxin 750 mg tablet RxNorm: 735471 2 Tablet(s) PO TID as need ed for spasm 10/10/2013 11/06/2013 Inactive Duragesic 100 mcg/hr transdermal patch RxNorm: 373663 2 Application TD Q48H for pain 10/09/2013 No Stop Date Active Soma 350 mg tablet RxNorm: 165068 1 Tablet(s) PO TID 09/27/201310/09 Inactive TAKE ONE TABLET BY MOUTH THREE TIMES A D AY lactulose 10 gram/15 mL oral solution RxNorm: 542242 [address](s) PO QD 09/13/2013 03/07/2015 Inactive TAKE 1 TABLESPOON BY MOUTH ONCE DAILY Duragesic 100 mcg/hr transdermal patch RxNorm: 785004 2 Application TD Q48H for pain 09/06/2013 No Stop Date Active Endocet 10 mg-325 mg tablet RxNorm: 4558097 1-2 Tablet(s) PO Q4H 09/27/2013 Inactive PRN PAIN lancets 28 gauge RxNorm: Miscellaneous As needed for blo od glucose sticks 08/24/2013 No Stop Date Active 16.2 mg-0.1037 mg-0.0194 mg tablet RxNorm: 6612617 Tablet(s) PO PRN for gas and cramping 08/24/2013 01/19/2017 Inactive TAKE TWO TABLET S BY MOUTH THREE TIMES A DAY NEEDED FOR GAS AND CRAMPING Topamax 100 mg tablet RxNorm: 077347 1 Tablet(s) PO QHS 07/31/2013 Inactive Diflucan 100 mg tablet RxNorm: 777992 1 Tablet(s) PO QD 07/27/2013 Inactive cefdinir 300 mg capsule RxNorm: 278890 1 Capsule(s) PO BID 07/26/20 13 08/08/2013 Inactive Daliresp 500 mcg tablet RxNorm: 6765860 1 Tablet(s) PO QD 07/25/2013 10/15/2013 Inactive fluoxetine 40 mg capsule RxNorm: 644781 1 Capsule(s) PO QD 07/25/20 13 01/22/2014 Inactive TAKE ONE CAPSULE BY MOUTH EV JANKI MORNING Senokot-S 8.6 mg-50 mg tablet RxNorm: 8451450 1 Tablet(s) PO BID 10/25/2013 Inactive doxycycline hyclate 100 mg capsule RxNorm: 4900754 1 Capsule(s) PO BID 06/28/2013 07/07/2013 Inactive prednisone 20 mg tablet RxNorm: 370873 1 Tablet(s) PO BID 06/28/2013 07/04/2013 Inactive Zofran 4 mg tablet RxNorm: 624099 1 Tablet(s) PO Q4H prn nausea 03/201307/05/2013 Inactive Spiriva with HandiHaler 18 mcg & inhalation capsules RxNorm: 568948 1 Capsule(s) INH QD 06/26/2013 12/18/2013 Inactive INHALE CONTENTS OF 1 CAPSULE(S) WITH HANDIHALER ONCE DAILY Synthroid 112 mcg tablet RxNorm: 343338 1 Tablet(s) PO QD TAKE ONE TABLET BY MOUTH EVERY DAY 06/19/2013 02/15/2014 Inactive fluoxetine 20 mg capsule RxNorm: 810553 1 Capsule(s) PO QD 06/19/2012/18/2013 Inactive Ventolin HFA 90 mcg/actuation Aerosol Inhaler RxNorm: 3902259 2 Puff(s) INH Q4H 06/05/2013 No Stop Date Active prn Soma 350 mg tablet RxNorm: 942917 1 Tablet(s) PO TID 06/05/201307/04 Inactive TAKE ONE TABLET BY MOUTH THREE TIMES A D AY prednisone 20 mg tablet RxNorm: 172496 1 Tablet(s) PO QD 05/31/2013 0 06/06/2013 Inactive Topamax 100 mg tablet RxNorm: 405354 1 Tablet(s) PO QHS 05/22/2013 Inactive Levaquin 500 mg tablet RxNorm: 995126 1 Tablet(s) PO QD 05/03/2013 Inactive Diflucan 100 mg tablet RxNorm: 549473 1 Tablet(s) PO QD 05/03/2013 Inactive Daliresp 500 mcg tablet RxNorm: 7709308 1 Tablet(s) PO QD 05/01/2013 07/24/2013 Inactive Daliresp 500 mcg tablet RxNorm: 0264020 1 Tablet(s) PO QD 05/01/2013 04/30/2013 Inactive gabapentin 800 mg tablet RxNorm: 919089 1 Tablet(s) PO QD 04/10/2013 10/06/2013 Inactive TAKE ONE TABLET BY MOUTH EVERY DAY metformin ER 500 mg tablet,extended release 24 hr RxNorm: 86 0977 1 Tablet(s) PO QD 04/10/2013 10/06/2013 Inactive TAKE ONE TABLET BY MOUTH EVERY DAY Premarin 0.9 mg tablet RxNorm: 374027 1 Tablet(s) PO QD 04/10/2013 Inactive TAKE ONE TABLET BY MOUTH EVERY DAY Symbicort 160 mcg-4.5 mcg/actuation HFA aerosol inhaler RxNo rm: 4549781 2 Puff(s) INH BID 04/10/2013 10/06/2013 Inactive INHALE 2 PUFFS O RALLY TWO TIMES A DAY Synthroid 112 mcg tablet RxNorm: 668993 1 Tablet(s) PO QD TAKE ONE TABLET BY MOUTH EVERY DAY 04/10/2013 06/18/2013 Inactive Ventolin HFA 90 mcg/actuation Aerosol Inhaler RxNorm: 4790623 2 Puff(s) INH Q4H 04/10/2013 No Stop Date Active prn fentanyl 100 mcg/hr transdermal patch RxNorm: 249896 1 Unit Dos e TD QD 04/03/2013 05/02/2013 Inactive Endocet 10 mg-325 mg tablet RxNorm: 2502242 1-2 Tablet(s) PO Q4H 05/02/2013 Inactive PRN PAIN Topamax 100 mg tablet RxNorm: 087109 1 Tablet(s) PO QHS 03/13/2013 Inactive Reglan 10 mg tablet RxNorm: 187517 1 Tablet(s) PO QID b efore meals and at bedtime 03/13/2013 04/09/2015 Inactive fluoxetine 20 mg capsule RxNorm: 083157 1 Capsule(s) PO QD 02/28/20 13 05/27/2013 Inactive Ventolin HFA 90 mcg/actuation Aerosol Inhaler RxNorm: 4154662 2 Puff(s) INH Q4H 02/13/2013 No Stop Date Active prn fluoxetine 40 mg capsule RxNorm: 488726 1 Capsule(s) PO QD 01/31/20 13 07/24/2013 Inactive TAKE ONE CAPSULE BY MOUTH EV JANKI MORNING Soma 350 mg tablet RxNorm: 594032 1 Tablet(s) PO TID 01/20/201302/18 Inactive TAKE ONE TABLET BY MOUTH THREE TIMES A D AY Endocet 10 mg-325 mg tablet RxNorm: 4850604 1-2 Tablet(s) PO Q4H 02/06/2013 Inactive PRN PAIN MS Contin 200 mg tablet,extended release RxNorm: 915291 1 Table t(s) PO BID 01/18/2013 02/06/2013 Inactive Ventolin HFA 90 mcg/actuation Aerosol Inhaler RxNorm: 2830940 2 Puff(s) INH Q4H 01/04/2013 No Stop Date Active prn Spiriva with HandiHaler 18 mcg & inhalation capsules RxNorm: 466756 1 Capsule(s) INH QD 12/29/2012 06/25/2013 Inactive INHALE CONTENTS OF 1 CAPSULE(S) WITH HANDIHALER ONCE DAILY Spiriva with HandiHaler 18 mcg & inhalation capsules RxNorm: 337771 1 Capsule(s) INH QD 12/26/2012 12/28/2012 Inactive INHALE CONTENTS OF 1 CAPSULE(S) WITH HANDIHALER ONCE DAILY Synthroid 112 mcg tablet RxNorm: 934474 Tablet(s) PO TA KE ONE TABLET BY MOUTH EVERY DAY 12/26/2012 04/09/2013 Inactive Endocet 10 mg-325 mg tablet RxNorm: 8086539 1-2 Tablet(s) PO Q4H 01/17/2013 Inactive PRN PAIN MS Contin 200 mg tablet,extended release RxNorm: 684471 1 Table t(s) PO BID 12/21/2012 01/17/2013 Inactive fluoxetine 20 mg capsule RxNorm: 486253 1 Capsule(s) PO QD 12/06/19 13 02/26/2013 Inactive Synthroid 112 mcg tablet RxNorm: 723342 1 Tablet(s) PO QD 12/06/2012 02/12/2019 Inactive TAKE ONE TABLET BY MOUTH EVERY DAY Ventolin HFA 90 mcg/actuation Aerosol Inhaler RxNorm: 9492319 2 Puff(s) INH Q4H 12/06/2012 No Stop Date Active prn Reglan 10 mg tablet RxNorm: 160986 1 Tablet(s) PO QID b efore meals and at bedtime 11/24/2012 03/12/2013 Inactive Topamax 100 mg tablet RxNorm: 764690 1 Tablet(s) PO QHS 11/16/2012 Inactive Ventolin HFA 90 mcg/actuation Aerosol Inhaler RxNorm: 9848864 2 Puff(s) INH Q4H 11/09/2012 No Stop Date Active prn gabapentin 800 mg tablet RxNorm: 677522 1 Tablet(s) PO QD 10/27/2012 04/09/2013 Inactive TAKE ONE TABLET BY MOUTH EVERY DAY metformin ER 500 mg tablet,extended release 24 hr RxNorm: 86 0977 1 Tablet(s) PO QD 10/27/2012 04/09/2013 Inactive TAKE ONE TABLET BY MOUTH EVERY DAY Symbicort 160 mcg-4.5 mcg/actuation HFA Aerosol Inhaler RxNo rm: 2408290 2 Puff(s) INH BID 10/27/2012 04/09/2013 Inactive INHALE 2 PUFFS O RALLY TWO TIMES A DAY Premarin 0.9 mg tablet RxNorm: 109034 1 Tablet(s) PO QD 10/27/2012 Inactive TAKE ONE TABLET BY MOUTH EVERY DAY Endocet 10 mg-325 mg tablet RxNorm: 2264840 1-2 Tablet(s) PO Q4H 11/24/2012 Inactive PRN PAIN MS Contin 200 mg tablet,extended release RxNorm: 844500 1 Table t(s) PO BID 10/26/2012 11/24/2012 Inactive Soma 350 mg tablet RxNorm: 429577 1 Tablet(s) PO TID 10/04/201211/02 Inactive TAKE ONE TABLET BY MOUTH THREE TIMES A D AY Ventolin HFA 90 mcg/actuation Aerosol Inhaler RxNorm: 0421394 2 Puff(s) INH Q4H 10/03/2012 No Stop Date Active prn Daliresp 500 mcg tablet RxNorm: 9470671 1 Tablet(s) PO QD 09/28/2012 09/27/2012 Inactive Daliresp 500 mcg tablet RxNorm: 4007408 1 Tablet(s) PO QD 09/28/2012 04/25/2013 Inactive fluoxetine 20 mg capsule RxNorm: 500202 1 Capsule(s) PO QD 09/05/20 12/06/2012 Inactive Topamax 50 mg tablet RxNorm: 296283 Tablet(s) PO for 1w k then 1 po q HS for 1wk then 2 po q HS 08/29/2012 09/27/2012 Inactive TAKE 1/2 TABLET BY MOUTH AT BEDTIME FOR 1 WEEK, THEN 1 TABLET AT BEDTIME FOR 1 WEEK, THEN 2 TABLETS AT BEDTIME Topamax 100 mg tablet RxNorm: 590877 1 Tablet(s) PO QHS 08/29/2012 Inactive Ventolin HFA 90 mcg/actuation Aerosol Inhaler RxNorm: 8225092 2 Puff(s) INH Q4H 08/19/2012 No Stop Date Active prn Ventolin HFA 90 mcg/actuation Aerosol Inhaler RxNorm: 2464139 2 Puff(s) INH Q4H 08/15/2012 No Stop Date Active prn Synthroid 112 mcg tablet RxNorm: 711999 1 Tablet(s) PO QD 08/10/2012 11/07/2012 Inactive TAKE ONE TABLET BY MOUTH EVERY DAY Synthroid 112 mcg tablet RxNorm: 378433 1 Tablet(s) PO QD 08/01/2012 08/09/2012 Inactive TAKE ONE TABLET BY MOUTH EVERY DAY Reglan 10 mg tablet RxNorm: 634039 1 Tablet(s) PO QID b efore meals and at bedtime 08/01/2012 11/23/2012 Inactive fluoxetine 40 mg capsule RxNorm: 115472 1 Capsule(s) PO QD 08/01/20 12 01/27/2013 Inactive TAKE ONE CAPSULE BY MOUTH EV JANKI MORNING Ventolin HFA 90 mcg/actuation Aerosol Inhaler RxNorm: 8982083 2 Puff(s) INH Q4H 08/01/2012 No Stop Date Active prn Soma 350 mg tablet RxNorm: 818162 1 Tablet(s) PO TID 07/20/201208/18 Inactive TAKE ONE TABLET BY MOUTH THREE TIMES A D AY Spiriva with HandiHaler 18 mcg & inhalation capsules RxNorm: 905444 1 Capsule(s) INH 07/01/2012 12/25/2012 Inactive INHALE CONTENTS OF 1 CAPSULE(S) WITH HANDIHALER ONCE DAILY Zithromax 250 mg Tab RxNorm: 922159 2 Tablet(s) PO QD 06/28/201206/22 Inactive MS Contin 200 mg tablet,extended release RxNorm: 035155 1 Table t(s) PO BID 06/28/2012 07/27/2012 Inactive Endocet 10 mg-325 mg tablet RxNorm: 5062278 1-2 Tablet(s) PO Q4H 07/27/2012 Inactive PRN PAIN Topamax 100 mg tablet RxNorm: 547066 1 Tablet(s) PO QHS 06/28/2012 Inactive 16.2 mg-0.1037 mg-0.0194 mg tablet RxNorm: 6965106 Tablet(s) PO PRN for gas and cramping 06/08/2012 08/23/2013 Inactive TAKE TWO TABLET S BY MOUTH THREE TIMES A DAY NEEDED FOR GAS AND CRAMPING Ventolin HFA 90 mcg/actuation Aerosol Inhaler RxNorm: 6743603 2 Puff(s) INH Q4H 05/23/2012 No Stop Date Active prn Ventolin HFA 90 mcg/actuation Aerosol Inhaler RxNorm: 6752713 2 Puff(s) INH Q4H 05/11/2012 No Stop Date Active prn Synthroid 112 mcg tablet RxNorm: 613216 1 Tablet(s) PO QD 05/09/2012 07/31/2012 Inactive TAKE ONE TABLET BY MOUTH EVERY DAY gabapentin 800 mg tablet RxNorm: 187442 1 Tablet(s) PO QD 05/09/2012 10/26/2012 Inactive TAKE ONE TABLET BY MOUTH EVERY DAY fluoxetine 40 mg capsule RxNorm: 629859 1 Capsule(s) PO QD 05/09/2007/31/2012 Inactive TAKE ONE CAPSULE BY MOUTH EV JANKI MORNING metformin ER 500 mg tablet,extended release 24 hr RxNorm: 86 0977 1 Tablet(s) PO QD 05/09/2012 10/26/2012 Inactive TAKE ONE TABLET BY MOUTH EVERY DAY Premarin 0.9 mg tablet RxNorm: 317178 1 Tablet(s) PO QD 05/09/2012 Inactive TAKE ONE TABLET BY MOUTH EVERY DAY Symbicort 160 mcg-4.5 mcg/actuation HFA Aerosol Inhaler RxNo rm: 9569558 2 Puff(s) INH BID 05/09/2012 10/26/2012 Inactive INHALE 2 PUFFS O RALLY TWO TIMES A DAY Endocet 10 mg-325 mg Tab RxNorm: 3592643 1-2 Tablet(s) PO Q4H 04/2705/26/2012 Inactive PRN PAIN MS Contin 200 mg Tab RxNorm: 493422 1 Tablet(s) PO BID 04/26/201202/2012 Inactive Ventolin HFA 90 mcg/actuation Aerosol Inhaler RxNorm: 1198857 2 Puff(s) INH Q4H 04/25/2012 05/10/2012 Inactive prn Soma 350 mg tablet RxNorm: 639462 2 Tablet(s) PO TID 04/19/201207/19 Inactive TAKE ONE TABLET BY MOUTH THREE TIMES A D AY Ventolin HFA 90 mcg/actuation Aerosol Inhaler RxNorm: 4586534 2 Puff(s) INH Q4H 04/12/2012 04/24/2012 Inactive prn Reglan 10 mg tablet RxNorm: 879441 1 Tablet(s) PO QID b efore meals and at bedtime 04/11/2012 07/31/2012 Inactive MS Contin 200 mg Tab RxNorm: 012070 1 Tablet(s) PO BID 03/30/201202/2012 Inactive Endocet 10 mg-325 mg Tab RxNorm: 6772287 1-2 Tablet(s) PO Q4H 03/3004/26/2012 Inactive PRN PAIN MS Contin 200 mg Tab RxNorm: 807135 1 Tablet(s) PO BID 03/02/201206/2012 Inactive Endocet 10 mg-325 mg Tab RxNorm: 2784179 1-2 Tablet(s) PO Q4H 03/0203/29/2012 Inactive PRN PAIN Daliresp 500 mcg tablet RxNorm: 6980605 1 Tablet(s) PO QD 03/01/2012 09/28/2012 Inactive MS Contin 200 mg Tab RxNorm: 648078 1 Tablet(s) PO BID 02/02/201208/2012 Inactive Endocet 10 mg-325 mg Tab RxNorm: 7077945 1-2 Tablet(s) PO Q4H 02/0103/01/2012 Inactive PRN PAIN fluoxetine 40 mg capsule RxNorm: 049446 1 Capsule(s) PO QD 02/02/2008/01/2012 Inactive TAKE ONE CAPSULE BY MOUTH EV JANKI MORNING Synthroid 112 mcg Tab RxNorm: 776262 1 Tablet(s) PO QD 01/18/2012 Inactive TAKE ONE TABLET BY MOUTH EVERY DAY lactulose 10 gram/15 mL oral solution RxNorm: 989201 [address]s) PO QD 01/18/2012 No Stop Date Active TAKE 1 TABLESPOON BY MOUTH ONCE DAILY Ventolin HFA 90 mcg/actuation Aerosol Inhaler RxNorm: 2021016 2 Puff(s) INH Q4H 01/18/2012 04/11/2012 Inactive prn MS Contin 200 mg Tab RxNorm: 677213 1 Tablet(s) PO BID 01/05/201210/2012 Inactive Endocet 10 mg-325 mg Tab RxNorm: 7751000 1-2 Tablet(s) PO Q4H 01/0502/01/2012 Inactive PRN PAIN ProAir HFA 90 mcg/Actuation Aerosol Inhaler RxNorm: 3980624 2 Pu ff(s) INH Q4H 12/21/2011 No Stop Date Active prn for wheezing or shortness of breath Spiriva with HandiHaler 18 mcg & inhalation Caps RxNorm: 580 261 1 Capsule(s) INH 12/21/2011 06/30/2012 Inactive INHALE CONTENTS OF 1 CAPSULE(S) WITH HANDIHALER ONCE DAILY Reglan 10 mg Tab RxNorm: 937408 1 Tablet(s) PO QID before meals and at bedtime 12/21/2011 04/10/2012 Inactive Synthroid 112 mcg Tab RxNorm: 504097 1 Tablet(s) PO QD 12/21/2011 Inactive TAKE ONE TABLET BY MOUTH EVERY DAY Endocet 10 mg-325 mg Tab RxNorm: 4314728 1-2 Tablet(s) PO Q4H 11/2512/24/2011 Inactive PRN PAIN MS Contin 200 mg Tab RxNorm: 426965 1 Tablet(s) PO BID 11/25/201112/2011 Inactive lactulose 10 gram/15 mL Oral Soln RxNorm: 559794 Milliliter(s) PO 1 No Stop Date Active TAKE 1 TABLESPOON BY MOUTH O NCE DAILY lactulose 10 gram/15 mL Oral Soln RxNorm: 295288 Milliliter(s) PO 1 12/12/2010 11/20/2011 Inactive TAKE 1 TABLESPOON BY MOUTH O NCE DAILY Premarin 0.9 mg Tab RxNorm: 421448 1 Tablet(s) PO QD 10/12/201105/08 Inactive TAKE ONE TABLET BY MOUTH EVERY DAY fluoxetine 20 mg capsule RxNorm: 659087 1 Capsule(s) PO QD 10/12/2009/05/2012 Inactive TAKE ONE CAPSULE BY MOUTH EV JANKI DAY Synthroid 112 mcg Tab RxNorm: 510014 1 Tablet(s) PO QD 10/12/2011 Inactive TAKE ONE TABLET BY MOUTH EVERY DAY metformin ER 500 mg 24 hr Tab RxNorm: 320891 1 Tablet(s) PO QD 09/2311/10/2011 Inactive TAKE ONE TABLET BY MOUTH GLYNN RY DAY Synthroid 112 mcg Tab RxNorm: 202067 1 Tablet(s) PO QD 10/12/2011 Inactive TAKE ONE TABLET BY MOUTH EVERY DAY metformin ER 500 mg 24 hr Tab RxNorm: 185104 1 Tablet(s) PO QD 09/2310/11/2011 Inactive TAKE ONE TABLET BY MOUTH GLYNN RY DAY Prevacid 30 mg Cap RxNorm: 731396 Capsule(s) PO 10/12/2011 01/25/2012 Inactive TAKE ONE CAPSULE BY MOUTH EVERY DAY Symbicort 160 mcg-4.5 mcg/actuation HFA Aerosol Inhaler RxNo rm: 8749113 2 Puff(s) INH BID 10/12/2011 05/08/2012 Inactive INHALE 2 PUFFS O RALLY TWO TIMES A DAY gabapentin 800 mg Tab RxNorm: 215035 1 Tablet(s) PO QD 10/12/2011 Inactive TAKE ONE TABLET BY MOUTH EVERY DAY MS Contin 200 mg Tab RxNorm: 640203 1 Tablet(s) PO BID 09/23/201111/2010 Inactive Endocet 10 mg-325 mg Tab RxNorm: 3371385 1-2 Tablet(s) PO Q4H 09/2310/22/2011 Inactive PRN PAIN Endocet 10 mg-325 mg Tab RxNorm: 9328973 1-2 Tablet(s) PO Q4H 08/2109/19/2011 Inactive PRN PAIN MS Contin 200 mg Tab RxNorm: 568390 1 Tablet(s) PO BID 08/21/2011 Inactive Diflucan 100 mg Tab RxNorm: 751758 1 Tablet(s) PO QD 08/10/201108/16 Inactive cefdinir 300 mg Cap RxNorm: 245284 2 Capsule(s) PO QD 08/10/201107/24 Inactive Reglan 10 mg Tab RxNorm: 185607 1 Tablet(s) PO AC & HS 07/15/2011 Inactive Endocet 10 mg-325 mg Tab RxNorm: 0074797 1-2 Tablet(s) PO Q4H 07/1508/13/2011 Inactive PRN PAIN One Touch Ultra Test strips RxNorm: Miscellaneous BID 06/11/2011 1 01/16/2014 Inactive TEST TWO TIMES A DAY lactulose 10 gram/15 mL Oral Soln RxNorm: 946720 Milliliter(s) PO 0 06/10/2011 10/11/2011 Inactive TAKE 1 TABLESPOON BY MOUTH O NCE DAILY Chantix Continuing Month Aníbal 1 mg Tab RxNorm: 597774 Tablet(s) PO 0 06/10/2011 11/02/2011 Inactive TAKE DIRECTED - PER PACK[employer] GE INSTRUCTIONS fluoxetine 40 mg Cap RxNorm: 293501 Capsule(s) PO 06/10/2011 02/02/20 12 Inactive TAKE ONE CAPSULE BY MOUTH EVERY MORNING Chantix Continuing Month Aníbal 1 mg Tab RxNorm: 523131 Ta blet(s) PO TAKE DIRECTED - PER PACKAGE INSTRUCTIONS 05/13/2011 06/09/2011 Inactive Soma 350 mg Tab RxNorm: 737665 Tablet(s) PO TAKE ON E TABLET BY MOUTH THREE TIMES A DAY 05/13/2011 04/18/2012 Inactive Chantix Continuing Month Aníbal 1 mg Tab RxNorm: 040333 Ta blet(s) PO as directed per package instructions. 04/22/2011 05/12/2011 Inactive Symbicort 160 mcg-4.5 mcg/Actuation HFA Aerosol Inhaler RxNo rm: 7495214 HFA Aerosol Inhaler INH INHALE 2 PUFFS ORALLY TWO TIMES A DAY 04/13/2011 Inactive Synthroid 112 mcg Tab RxNorm: 261622 Tablet(s) PO TAKE ONE TABLET BY MOUTH EVERY DAY 04/13/2011 10/12/2011 Inactive Premarin 0.9 mg Tab RxNorm: 387901 Tablet(s) PO TAKE ON E TABLET BY MOUTH EVERY DAY 04/13/2011 10/12/2011 Inactive gabapentin 800 mg Tab RxNorm: 693086 Tablet(s) PO TAKE ONE TABLET BY MOUTH EVERY DAY 04/13/2011 10/12/2011 Inactive Prevacid 30 mg Cap RxNorm: 463160 1 Capsule(s) PO QD 04/13/201110/11 Inactive Spiriva with HandiHaler 18 mcg & inhalation Caps RxNorm: 580 261 Capsule(s) INH INHALE CONTENTS OF 1 CAPSULE(S) WITH HANDIHALER ONCE DAILY 04/13/2011 12/21/2011 Inactive metformin ER 500 mg 24 hr Tab RxNorm: 858640 Tablet(s) PO TAKE ONE TABLET BY MOUTH EVERY DAY 04/13/2011 10/12/2011 Inactive Soma 350 mg Tab RxNorm: 659819 1 Tablet(s) PO QID 03/30/2011 02/13/20 19 Inactive fluoxetine 20 mg Cap RxNorm: 967379 Capsule(s) PO TAKE ONE CAPSULE BY MOUTH EVERY DAY 03/25/2011 10/12/2011 Inactive cefdinir 300 mg Cap RxNorm: 673442 2 Capsule(s) PO QD 03/19/201105/2011 Inactive 16.2 mg-0.1037 mg-0.0194 mg Tab RxNorm: 3740115 2 Tablet(s) PO TID PRN for gas and cramping 03/16/2011 07/13/2011 Inactive Soma 350 mg Tab RxNorm: 967512 2 Tablet(s) PO TID 03/16/2011 03/29/20 11 Inactive Chantix Starting Month Aníbal 0.5 mg (11)-1 mg (3x14) Tab s in a Dose Pack RxNorm: 070970 Tablet(s) PO as directed 03/02/2011 No Stop Date Active diazepam 10 mg Tab RxNorm: 507343 1 Tablet(s) PO BID 02/10/201101/19 Inactive Zofran 4 mg tablet RxNorm: 696578 1 Tablet(s) PO Q4H prn nausea 02/16/2011 Inactive Diflucan 100 mg Tab RxNorm: 740159 1 Tablet(s) PO QD 01/18/201101/24 Inactive Premarin 0.625 mg/g Vaginal Cream RxNorm: 429797 VAG In sert 1gm vaginally at bedtime 3 times weekly 01/18/2011 02/12/2019 Inactive loratadine 10 mg Tab RxNorm: 988760 1 Tablet(s) PO QD 12/17/201003/2012 Inactive Spiriva with HandiHaler 18 mcg & inhalation Caps RxNorm: 580 261 1 Capsule(s) INH QD 12/17/2010 04/12/2011 Inactive Diflucan 100 mg Tab RxNorm: 578848 1 Tablet(s) PO QD 12/17/201012/23 Inactive diazepam 10 mg Tab RxNorm: 590845 1 Tablet(s) PO BID and PRN 201002/12/2019 Inactive One Touch Ultra Test Strips RxNorm: InVt BID Zainab t blood sugar at least twice daily. 11/11/2010 06/11/2011 Inactive fluoxetine 40 mg Cap RxNorm: 692617 1 Capsule(s) PO QAM 11/11/2010 Inactive diazepam 10 mg Tab RxNorm: 860475 1 Tablet(s) PO BID and PRN 200911/12/2010 Inactive Bactrim DS 800 mg-160 mg Tab RxNorm: 208984 1 Tablet(s) PO BID 09/2210/15/2010 Inactive fluoxetine 20 mg Cap RxNorm: 609526 1 Capsule(s) PO QD 10/02/201008/2011 Inactive Bactrim DS 800 mg-160 mg Tab RxNorm: 801517 1 Tablet(s) PO BID 01/201010/03/2010 Inactive Zofran 4 mg Tab RxNorm: 809249 1 Tablet(s) PO Q4H prn nausea 200910/16/2010 Inactive 16.2 mg-0.1037 mg-0.0194 mg Tab RxNorm: 3338682 2 Tablet(s) PO TID PRN for gas and cramping 09/17/2010 10/21/2010 Inactive Gabapentin 800 mg Tab RxNorm: 407388 1 Tablet(s) PO QD 09/16/2010 Inactive ProAir HFA 90 mcg/Actuation Aerosol Inhaler RxNorm: 7709909 2 Puff(s) INH Q4H prn shortness of breath 09/15/2010 12/13/2010 Inactive gabapentin 800 mg Tab RxNorm: 806378 1 Tablet(s) PO QD 09/15/2010 Inactive Prevacid 30 mg Cap RxNorm: 809456 1 Capsule(s) PO QD 09/15/201004/12 Inactive loratadine 10 mg Tab RxNorm: 936815 1 Tablet(s) PO QD 09/15/201011/23 Inactive Premarin 0.9 mg Tab RxNorm: 166186 1 Tablet(s) PO QD 09/15/201004/12 Inactive Synthroid 112 mcg Tab RxNorm: 585570 1 Tablet(s) PO QD 09/15/2010 Inactive metformin ER 500 mg 24 hr Tab RxNorm: 952909 1 Tablet(s) PO QD 08/2304/12/2011 Inactive Symbicort 160 mcg-4.5 mcg/Actuation Inhalation HFA Aer osol Inhaler RxNorm: 5268471 2 Puff(s) INH BID 09/15/2010 04/12/2011 Inactive diazepam 10 mg Tab RxNorm: 433684 1 Tablet(s) PO BID and PRN 200910/13/2010 Inactive Phentermine 37.5 mg Cap RxNorm: 537806 1 Capsule(s) PO QD 09/02/2010 11/02/2011 Inactive ProAir HFA 90 mcg/Actuation Aerosol Inhaler RxNorm: 6977847 2 Puff(s) INH Q4H prn shortness of breath 08/07/2010 No Stop Date Active Premarin 0.9 mg Tab RxNorm: 914730 1 Tablet(s) PO QD 08/07/201009/14 Inactive Loratadine 10 mg Tab RxNorm: 769841 1 Tablet(s) PO QD 08/07/201008/23 Inactive Lactulose 10 gram/15 mL Oral Soln RxNorm: 678954 1 Unit Dose PO QD 08/07/2010 02/12/2019 Inactive Zofran 4 mg Tab RxNorm: 162353 1 Tablet(s) PO Q4H prn nausea 2009 No Stop Date Active Gabapentin 800 mg Tab RxNorm: 888163 1 Tablet(s) PO QD 08/07/2010 Inactive Synthroid 112 mcg Tab RxNorm: 541735 1 Tablet(s) PO QD 08/07/2010 Inactive Metformin ER 500 mg 24 hr Tab RxNorm: 052367 1 Tablet(s) PO QD 07/2309/14/2010 Inactive Vitamin D 1,000 unit Tab RxNorm: 954933 1 Tablet(s) PO TID 08/07/2002/12/2019 Inactive Symbicort 160 mcg-4.5 mcg/Actuation Inhalation HFA Aer osol Inhaler RxNorm: 5289948 2 Puff(s) INH BID 08/07/2010 09/14/2010 Inactive Prevacid 30 mg Cap RxNorm: 132621 1 Capsule(s) PO QD 08/07/201009/14 Inactive Metformin ER 500 mg 24 hr Tab RxNorm: 530714 1 Tablet(s) PO QD 06/2308/06/2010 Inactive Vitamin D 1,000 unit Tab RxNorm: 778365 1 Tablet(s) PO TID 07/14/2008/06/2010 Inactive Synthroid 112 mcg Tab RxNorm: 716379 1 Tablet(s) PO QD 07/14/2010 Inactive Lactulose 10 gram/15 mL Oral Soln RxNorm: 557564 1 Unit Dose PO QD 07/14/2010 08/06/2010 Inactive Levaquin 500 mg Tab RxNorm: 060935 1 Tablet(s) PO QD 07/14/201007/27 Inactive Premarin 0.9 mg Tab RxNorm: 059160 1 Tablet(s) PO QD 07/14/201008/06 Inactive ProAir HFA 90 mcg/Actuation Aerosol Inhaler RxNorm: 8889552 2 Puff(s) INH Q4H prn shortness of breath 07/14/2010 No Stop Date Active Prevacid 30 mg Cap RxNorm: 681827 1 Capsule(s) PO QD 07/14/201008/06 Inactive Zofran 4 mg Tab RxNorm: 862789 1 Tablet(s) PO Q4H prn nausea 2009 No Stop Date Active Symbicort 160 mcg-4.5 mcg/Actuation Inhalation HFA Aer osol Inhaler RxNorm: 2674476 2 Puff(s) INH BID 07/14/2010 08/06/2010 Inactive Loratadine 10 mg Tab RxNorm: 247816 1 Tablet(s) PO QD 07/14/201007/23 Inactive Gabapentin 800 mg Tab RxNorm: 413441 1 Tablet(s) PO QD 07/14/2010 Inactive Metformin ER 500 mg 24 hr Tab RxNorm: 326386 1 Tablet(s) PO 010 07/13/2010 Inactive Diazepam 10 mg Tab RxNorm: 415481 1 Tablet(s) PO BID and PRN 200909/06/2010 Inactive Premarin 0.9 mg Tab RxNorm: 685023 1 Tablet(s) PO QD 06/09/201007/13 Inactive Zofran 4 mg Tab RxNorm: 090787 1 Tablet(s) PO Q4H prn nausea 2009 No Stop Date Active ProAir HFA 90 mcg/Actuation Aerosol Inhaler RxNorm: 2647788 2 Puff(s) INH Q4H prn shortness of breath 06/09/2010 No Stop Date Active Gabapentin 800 mg Tab RxNorm: 406378 1 Tablet(s) PO QD 06/09/2010 Inactive Loratadine 10 mg Tab RxNorm: 739444 1 Tablet(s) PO QD 06/09/201006/23 Inactive Lactulose 10 gram/15 mL Oral Soln RxNorm: 640532 1 Unit Dose PO QD 06/09/2010 07/13/2010 Inactive Prevacid 30 mg Cap RxNorm: 013762 1 Capsule(s) PO QD 06/09/201007/13 Inactive Synthroid 112 mcg Tab RxNorm: 790458 1 Tablet(s) PO QD 06/09/2010 Inactive Symbicort 160 mcg-4.5 mcg/Actuation Inhalation HFA Aer osol Inhaler RxNorm: 2733917 2 Puff(s) INH BID 06/09/2010 07/13/2010 Inactive Omnicef 300 mg Cap RxNorm: 809505 2 Capsule(s) PO QD 05/07/201005/20 Inactive Metformin 500 mg Tab RxNorm: 790436 1 Tablet(s) PO QD 05/06/201005/22 Inactive ProAir HFA 90 mcg/Actuation Aerosol Inhaler RxNorm: 5804338 2 Puff(s) INH Q4H prn shortness of breath 05/06/2010 No Stop Date Active lactulose 10 gram/15 mL Oral Soln RxNorm: 260920 1 Unit Dose PO QD 05/06/2010 06/10/2011 Inactive Loratadine 10 mg Tab RxNorm: 106093 1 Tablet(s) PO QD 05/06/201005/22 Inactive Synthroid 112 mcg Tab RxNorm: 204353 1 Tablet(s) PO QD 05/06/2010 Inactive Symbicort 160 mcg-4.5 mcg/Actuation Inhalation HFA Aer osol Inhaler RxNorm: 9940482 2 Puff(s) INH BID 05/06/2010 06/08/2010 Inactive Gabapentin 800 mg Tab RxNorm: 060993 1 Tablet(s) PO QD 05/06/2010 Inactive 16.2 mg-0.1037 mg-0.0194 mg Tab RxNorm: 2443347 2 Tablet(s) PO TID PRN for gas and cramping 05/06/2010 05/12/2010 Inactive Zofran 4 mg Tab RxNorm: 232451 1 Tablet(s) PO Q4H prn nausea 200904/13/2010 Inactive MS Contin 60 mg Tab RxNorm: 478826 3 Tablet(s) PO BID 04/09/201004/22 Inactive Soma 350 mg Tab RxNorm: 676945 2 Tablet(s) PO TID 04/09/2010 05/08/20 Inactive Symbicort 160 mcg-4.5 mcg/Actuation Inhalation HFA Aer osol Inhaler RxNorm: 2569861 2 Puff(s) INH BID 04/08/2010 05/05/2010 Inactive Doxycycline 100 mg Cap RxNorm: 3651855 1 Capsule(s) PO BID 04/08/20 10 04/17/2010 Inactive Triamterene-Hydrochlorothiazide 37.5 mg-25 mg Cap RxNorm: 19 8316 1 Capsule(s) PO QAM 04/08/2010 09/04/2010 Inactive fluoxetine 40 mg Cap RxNorm: 072889 1 Capsule(s) PO QAM 04/08/2010 Inactive Morphine SR 120 mg multiphase 24 hr Cap RxNorm: 027946 1 Capsul e(s) PO 03/11/2010 04/07/2010 Inactive Endocet 10 mg-325 mg Tab RxNorm: 8518733 1-2 Tablet(s) PO Q4H MD N PAIN 03/11/2010 04/09/2010 Inactive Savella 100 mg Tab RxNorm: 507471 1 Tablet(s) PO BID 03/10/201004/09 Inactive Soma 350 mg Tab RxNorm: 199939 1 Tablet(s) PO TID prn spasm 010 04/09/2010 Inactive Savella 100 mg Tab RxNorm: 668754 1 Tablet(s) PO BID 02/03/201004/09 Inactive Aspirin 81 mg Tab RxNorm: 197959 1 Tablet(s) PO QD No Start Date Active Zyrtec 10 mg Tab RxNorm: 5449981 1 Tablet(s) PO QD No Start Date Active One Touch Ultra Test Strips RxNorm: Misc test at least t wice daily. No Start Date Active coenzyme Q10 200 mg capsule RxNorm: 928291 1 Capsule(s) PO QD No Star t Date Active One Touch Ultra Test Strips RxNorm: InVt BID Zainab t blood sugar at least twice daily. No Start Date 11/10/2010 Inactive Gabapentin 800 mg Tab RxNorm: 567987 1 Tablet(s) PO QD No Start Date 05/05/2010 Inactive Abilify 5 mg tablet RxNorm: 141576 1 Tablet(s) PO QD No Start Date Inactive Chantix 1 mg Tab RxNorm: 747527 1 Tablet(s) PO BID No Start Date 10/22 Inactive Ozempic 0.25 mg or 0.5 mg (2 mg/1.5 mL) subcutaneous p en injector RxNorm: 5441614 .25 Milligram(s) SQ QW No Start Date 07/04/2019 Inactive lancets 28 gauge RxNorm: Miscellaneous As needed for blo od glucose sticks No Start Date 08/23/2013 Inactive potassium chloride ER 20 mEq tablet,extended release RxNorm: 510636 2 Tablet(s) PO QD No Start Date 09/26/2018 Inactive Ventolin HFA 90 mcg/actuation Aerosol Inhaler RxNorm: 453424 1 2 Puff(s) INH Q4H prn No Start Date 01/17/2012 Inactive potassium chloride ER 20 mEq tablet,extended release RxNorm: 551945 2 Tablet(s) PO QD No Start Date 10/19/2018 Inactive Januvia 100 mg tablet RxNorm: 616414 1 Tablet(s) PO QD No Start Date 09/10/2015 Inactive Medrol (Aníbal) 4 mg Tabs in a Dose Pack RxNorm: 584610 Tablet(s) PO N o Start Date 08/09/2011 Inactive as directed Zithromax Z-Aníbal 250 mg Tab RxNorm: 766413 Tablet(s) PO No Start Date 01/25/2012 Inactive as directed vitamin B6-vitamin E-magnesium tablet RxNorm: 1 Tablet(s ) PO QHS with INH No Start Date 03/30/2018 Inactive prednisone 20 mg Tab RxNorm: 462170 1 Tablet(s) PO TID for 1wk then 1 po BID for 1wk No Start Date 01/25/2012 Inactive furosemide 40 mg tablet RxNorm: 954329 1 Tablet(s) PO QAM No Start Date 10/09/2018 Inactive Vitamin D3 1000 units Capsule RxNorm: 1 Capsule(s) PO TID No S tart Date 03/19/2015 Inactive Zofran 4 mg Tab RxNorm: 790539 1 Tablet(s) PO Q4H prn nausea No Sta rt Date 04/13/2010 Inactive Premarin 0.625 mg/g Vaginal Cream RxNorm: 863189 1 Gram (s) VAG QHS 3 times a week No Start Date 09/22/2017 Inactive oxycodone 10 mg tablet RxNorm: 7385754 1-2 Tablet(s) PO QID as n eeded for pain No Start Date 11/04/2015 Inactive Nicoderm CQ 21 mg/24 hr daily Patch RxNorm: 194338 1 Applicatio n TD QD No Start Date 08/05/2015 Inactive Topamax 50 mg tablet RxNorm: 305110 1/2 Tablet(s) PO QH S for 1wk then 1 po q HS for 1wk then 2 po q HS No Start Date 06/27/2012 Inactive Chantix Starting Month Aníbal 0.5 mg (11)-1 mg (3x14) Tab s in a Dose Pack RxNorm: 374985 Tablet(s) PO as directed No Start Date 03/01/2011 Inactive Trulicity 0.75 mg/0.5 mL subcutaneous pen injector RxNorm: 1 097553 Milliliter(s) SQ No Start Date 07/04/2019 Inactive Medrol (Aníbal) 4 mg Tabs in a Dose Pack RxNorm: 940167 Tablet(s) PO N o Start Date 01/25/2012 Inactive as directed Duragesic 100 mcg/hr Transderm Patch RxNorm: 586545 2 A pplication TD Q48H for pain No Start Date 09/05/2013 Inactive Premarin 0.9 mg Tab RxNorm: 214142 1 Tablet(s) PO QD No Start Date Inactive Zithromax Z-Aníbal 250 mg Tab RxNorm: 248314 Tablet(s) PO as direc chinmay No Start Date 01/25/2012 Inactive ondansetron 8 mg disintegrating tablet RxNorm: 451193 1 Tablet(s) PO Q6H as needed No Start Date 10/10/2018 Inactive oxycodone 15 mg tablet RxNorm: 4890182 1 Tablet(s) PO QID as nee ded for pain No Start Date 03/05/2019 Inactive ProAir HFA 90 mcg/Actuation Aerosol Inhaler RxNorm: 768203 2 Puff(s) INH Q4H prn for wheezing or shortness of breath No Start Date 12/21/2011 Inactive pravastatin 40 mg tablet RxNorm: 978828 1/2 Tablet(s) PO QOD No Sta rt Date 04/09/2015 Inactive ipratropium-albuterol 0.5 mg-3 mg(2.5 mg base)/3 mL ne bulization soln RxNorm: 2628695 1 Unit Dose INH Q4H as needed No Start Date 09/09/2016 Inactive furosemide 40 mg tablet RxNorm: 746679 1 Tablet(s) PO QAM as ne eded No Start Date 09/24/2019 Inactive Vitamin D2 oral RxNorm: 4018 oral No Start Date 03/18/2015 Inacti ve pravastatin 40 mg tablet RxNorm: 970152 1/2 Tablet(s) PO QD No Star t Date 04/09/2015 Inactive ondansetron HCl 4 mg tablet RxNorm: 553929 1 Tablet(s) PO Q4H as needed for nausea and vomiting No Start Date 04/07/2016 Inactive furosemide 40 mg tablet RxNorm: 106661 2 Tablet(s) PO QAM No Start Date 09/26/2018 Inactive gabapentin 800 mg tablet RxNorm: 938285 1/2 Tablet(s) PO BID No Sta rt Date 06/21/2017 Inactive gabapentin 800 mg tablet RxNorm: 382135 1/2 Tablet(s) PO BID No Sta rt Date 07/05/2017 Inactive ProAir HFA 90 mcg/Actuation Aerosol Inhaler RxNorm: 2049985 2 Puff(s) INH Q4H prn shortness of breath No Start Date 05/05/2010 Inactive scopolamine 1 mg over 3 days transdermal patch RxNorm: 75010 2 1 Application TD behind ear. Take off after three days No Start Date 10/10/2018 Inactive Metformin 500 mg Tab RxNorm: 083724 1 Tablet(s) PO QD No Start Date 0 05/05/2010 Inactive MS Contin 200 mg Tab RxNorm: 773089 1 Tablet(s) PO BID No Start Date 08/20/2011 Inactive Belladonna-Phenobarbital 48 mg tablet,extended release RxNor m: 2 Tablet(s) PO TID No Start Date 06/04/2016 Inactive Synthroid 112 mcg Tab RxNorm: 692650 1 Tablet(s) PO QD No Start Date 05/05/2010 Inactive Zegerid 40 mg-1.1 gram Cap RxNorm: 894820 1 Capsule(s) PO QD No Sta rt Date 01/25/2012 Inactive Premarin 0.625 mg/g Vaginal Cream RxNorm: 250475 VAG In sert 1gm vaginally at bedtime 3 times weekly No Start Date 01/17/2011 Inactive potassium chloride ER 20 mEq tablet,extended release RxNorm: 405391 1 Tablet(s) PO QD No Start Date 04/24/2019 Inactive methocarbamol 750 mg tablet RxNorm: 556904 2 Tablet(s) PO TID as needed for muscle spasm No Start Date 07/08/2014 Inactive Biaxin XL Aníbal 500 mg 24 hr Tab RxNorm: 021642 Tablet(s) PO as d irected No Start Date 04/24/2013 Inactive Vitamin D3 1,000 unit tablet RxNorm: 731256 3 Tablet(s) PO QD No St art Date 06/01/2017 Inactive Morphine SR 120 mg multiphase 24 hr Cap RxNorm: 992313 1 Capsul e(s) PO BID No Start Date 04/09/2010 Inactive Silvadene 1 % topical cream RxNorm: 073129 1 Application TOP BI D to burn area No Start Date 01/31/2017 Inactive Prednisone 20 mg Tab RxNorm: 043820 1 Tablet(s) PO TID for 3days then BID for 4days No Start Date 01/25/2012 Inactive gabapentin 600 mg tablet RxNorm: 298784 1 Tablet(s) PO BID No Start Date 01/21/2015 Inactive topiramate 50 mg tablet RxNorm: 757634 1 Tablet(s) PO QHS No Start Date 03/30/2018 Inactive Januvia 100 mg tablet RxNorm: 885765 1/2 Tablet(s) PO QD No Start D ate 12/25/2015 Inactive Diazepam 10 mg Tab RxNorm: 771249 1 Tablet(s) PO BID and PRN No Sta rt Date 06/08/2010 Inactive Medication Administered No Medication Administered data Immunizations Vaccine Codes Date Status Influenza CVX: 141 09/28/2012 Pneumovax Unknown 09/28/2012 Influenza (Adult) CVX: 141 09/02/2010 Results No Results data Procedures Procedure Codes Date THER/PROPH/DIAG INJ SC/IM CPT-4: 14362 07/10/2019 METHYLPREDNISOLONE INJECTION CPT-4: J2930 07/10/2019 URINALYSIS NONAUTO W/O SCOPE CPT-4: 67546 09/06/2018 URINE CULTURE/ COLONY COUNT CPT-4: 78552 09/06/2018 DRAIN/INJECT JOINT/BURSA CPT-4: 16296 04/29/2017 TRIAMCINOLONE ACET INJ NOS CPT-4: J3301 04/29/2017 DEXAMETHASONE SODIUM PHOS CPT-4: J1100 04/29/2017 INFLUENZA ASSAY W/OPTIC CPT-4: 17679 12/01/2016 RESPIRATORY CULTURE & STAIN CPT-4: 39475 07/09/2016 TB INTRADERMAL TEST CPT-4: 03921 04/21/2016 DRAIN/INJECT JOINT/BURSA CPT-4: 50035 11/07/2013 METHYLPREDNISOLONE 40 MG INJ CPT-4: J1030 11/07/2013 TRIAMCINOLONE ACET INJ NOS CPT-4: J3301 11/07/2013 DRAIN/INJECT JOINT/BURSA CPT-4: 20894 08/08/2013 METHYLPREDNISOLONE 40 MG INJ CPT-4: J1030 08/08/2013 TRIAMCINOLONE ACET INJ NOS CPT-4: J3301 08/08/2013 FLU VACCINE 3 YRS & > IM UP 64 CPT-4: 64622 2 PNEUMOCOCCAL VACC 23 ADITYA IM CPT-4: 00991 09/28/2012 IMMUNIZATION ADMIN CPT-4: 16753 09/28/2012 IMMUNIZATION ADMIN EACH ADD CPT-4: 47976 09/28/2012 FLU VACCINE 3 YRS & > IM UP 64 CPT-4: 59092 0 IMMUNIZATION ADMIN CPT-4: 90315 09/02/2010 METHYLPREDNISOLONE INJECTION CPT-4: J2930 05/07/2010 THER/PROPH/DIAG INJ SC/IM CPT-4: 59268 05/07/2010 Vital Signs Date Vital 10/30/2019 Blood Pressure 1: 132/78 Code: 8480-6 [...] 1: 122/78 Code: 8480-6 BMI: 29.5 Code: 78148-9 Heart Rate 1: 76 bpm Height: 5'4" Respiratory Rate: 20 bpm SpO2: 96% Tempera ture: 37.0 (C) / 98.6 (F) Weight: 172 lbs 01/25/2019 Blood Pressure 1: 132/80 Code: 8480-6 BMI: 29.7 Code: 05761-3 Heart Rate 1: 84 bpm Height: 5'4" Respiratory Rate: 22 bpm SpO2: 98% Tempera ture: 36.9 (C) / 98.4 (F) Weight: 173 lbs 01/03/2019 Blood Pressure 1: 116/70 Code: 8480-6 BMI: 29.5 Code: 83406-5 Heart Rate 1: 92 bpm Height: 5'4" Respiratory Rate: 24 bpm SpO2: 98% Tempera ture: 37.2 (C) / 98.9 (F) Weight: 172 lbs 11/21/2018 Blood Pressure 1: 146/82 Code: 8480-6 BMI: 28.2 Code: 31668-5 Heart Rate 1: 88 bpm Height: 5'4" Respiratory Rate: 22 bpm SpO2: 97% Tempera ture: 36.9 (C) / 98.4 (F) Weight: 164 lbs 10/27/2018 Blood Pressure 1: 122/70 Code: 8480-6 BMI: 27.6 Code: 38318-1 Heart Rate 1: 88 bpm Height: 5'4" Respiratory Rate: 20 bpm SpO2: 96% Tempera ture: 36.8 (C) / 98.3 (F) Weight: 161 lbs 10/18/2018 Blood Pressure 1: 126/70 Code: 8480-6 BMI: 28.3 Code: 13289-8 Heart Rate 1: 76 bpm Height: 5'4" Respiratory Rate: 20 bpm SpO2: 95% Tempera ture: 37.0 (C) / 98.6 (F) Weight: 165 lbs 09/27/2018 Blood Pressure 1: 124/78 Code: 8480-6 BMI: 27.1 Code: 16868-6 Heart Rate 1: 88 bpm Height: 5'4" Respiratory Rate: 20 bpm SpO2: 98% Tempera ture: 36.4 (C) / 97.6 (F) Weight: 158 lbs 09/14/2018 Blood Pressure 1: 140/72 Code: 8480-6 BMI: 26.1 Code: 06865-4 Heart Rate 1: 100 bpm Height: 5'4" Respiratory Rate: 20 bpm SpO2: 97% Tempera ture: 36.9 (C) / 98.4 (F) Weight: 152 lbs 09/06/2018 Blood Pressure 1: 156/82 Code: 8480-6 BMI: 26.3 Code: 43196-2 Heart Rate 1: 100 bpm Height: 5'4" Respiratory Rate: 28 bpm SpO2: 95% Tempera ture: 37.2 (C) / 98.9 (F) Weight: 153 lbs 08/16/2018 Blood Pressure 1: 130/78 Code: 8480-6 Heart Rate 1: 87 bpm Respiratory Rate: 24 bpm SpO2: 94% Temperature: 36.9 (C) / 98.4 (F) We ight: 147 lbs 8 oz 07/07/2018 Blood Pressure 1: 116/78 Code: 8480-6 BMI: 22.7 Code: 91939-3 Heart Rate 1: 88 bpm Height: 5'4" Respiratory Rate: 22 bpm SpO2: 98% Tempera ture: 36.5 (C) / 97.7 (F) Weight: 132 lbs 05/31/2018 Blood Pressure 1: 128/78 Code: 8480-6 BMI: 22.3 Code: 90382-7 Heart Rate 1: 92 bpm Height: 5'4" Respiratory Rate: 26 bpm SpO2: 94% Tempera ture: 36.7 (C) / 98.1 (F) Weight: 130 lbs 03/31/2018 Blood Pressure 1: 136/78 Code: 8480-6 BMI: 21.5 Code: 85122-0 Heart Rate 1: 76 bpm Height: 5'4" Respiratory Rate: 24 bpm SpO2: 95% Tempera ture: 36.8 (C) / 98.3 (F) Weight: 125 lbs 01/26/2018 Blood Pressure 1: 142/64 Code: 8480-6 BMI: 20.6 Code: 60548-2 Heart Rate 1: 90 bpm Height: 5'4" Respiratory Rate: 24 bpm SpO2: 92% Tempera ture: 36.3 (C) / 97.3 (F) Weight: 120 lbs 10/26/2017 Blood Pressure 1: 124/70 Code: 8480-6 BMI: 20.3 Code: 52655-6 Heart Rate 1: 76 bpm Height: 5'4" Respiratory Rate: 22 bpm SpO2: 94% Tempera ture: 36.7 (C) / 98.1 (F) Weight: 118 lbs 09/23/2017 Blood Pressure 1: 106/70 Code: 8480-6 BMI: 19.2 Code: 05155-2 Heart Rate 1: 76 bpm Height: 5'4" Respiratory Rate: 20 bpm SpO2: 94% Tempera ture: 36.8 (C) / 98.3 (F) Weight: 112 lbs 08/12/2017 Blood Pressure 1: 116/68 Code: 8480-6 BMI: 20.1 Code: 78134-9 Heart Rate 1: 80 bpm Height: 5'4" Respiratory Rate: 22 bpm SpO2: 95% Tempera ture: 36.8 (C) / 98.2 (F) Weight: 117 lbs 07/06/2017 Blood Pressure 1: 136/78 Code: 8480-6 BMI: 20.6 Code: 37500-4 Heart Rate 1: 76 bpm Height: 5'4" Respiratory Rate: 24 bpm SpO2: 96% Tempera ture: 36.8 (C) / 98.2 (F) Weight: 120 lbs 06/02/2017 Blood Pressure 1: 112/70 Code: 8480-6 Heart Rate 1: 92 bpm Height: 5'4" Respiratory Rate: 24 bpm SpO2: 95% Temperature: 37.0 (C) / 98.6 (F) Weight: 04/29/2017 Blood Pressure 1: 94/52 Code: 8480-6 BMI: 19.6 C ode: 42045-7 Heart Rate 1: 84 bpm Height: 5'4" [...] 92/58 Code: 8480-6 BMI: 19.2 C ode: 39103-3 Heart Rate 1: 84 bpm Height: 5'4" Respiratory Rate: 26 bpm SpO2: 95% Tempera ture: 36.7 (C) / 98.0 (F) Weight: 112 lbs 12/01/2016 Blood Pressure 1: 114/70 Code: 8480-6 BMI: 19.2 Code: 66814-2 Heart Rate 1: 96 bpm Height: 5'4" Respiratory Rate: 28 bpm SpO2: 93% Tempera ture: 38.3 (C) / 101.0 (F) Weight: 112 lbs 10/27/2016 Blood Pressure 1: 126/66 Code: 8480-6 BMI: 19.6 Code: 25041-5 Heart Rate 1: 92 bpm Height: 5'4" Respiratory Rate: 28 bpm SpO2: 90% Tempera ture: 36.8 (C) / 98.3 (F) Weight: 114 lbs 09/09/2016 Blood Pressure 1: 126/74 Code: 8480-6 Heart Rate 1: 104 bpm Height: 5'4" Respiratory Rate: 32 bpm SpO2: 88% Temperature: 37 .2 (C) / 99.0 (F) 08/26/2016 Blood Pressure 1: 134/82 Code: 8480-6 BMI: 22.0 Code: 94462-8 Heart Rate 1: 84 bpm Height: 5'4" Respiratory Rate: 24 bpm SpO2: 94% Tempera ture: 36.8 (C) / 98.3 (F) Weight: 128 lbs 05/21/2016 Blood Pressure 1: 142/80 Code: 8480-6 BMI: 21.6 Code: 03771-0 Heart Rate 1: 104 bpm Height: 5'4" Respiratory Rate: 22 bpm SpO2: 93% Tempera ture: 36.0 (C) / 96.8 (F) Weight: 126 lbs 03/25/2016 Blood Pressure 1: 126/62 Code: 8480-6 Heart Rate 1: 88 bpm Respiratory Rate: 20 bpm SpO2: 92% Temperature: 36.8 (C) / 98.3 (F) We ight: 130 lbs 01/23/2016 Blood Pressure 1: 146/82 Code: 8480-6 BMI: 24.1 Code: 44059-3 Heart Rate 1: 92 bpm Height: 5'3" Respiratory Rate: 22 bpm Temperature: 37 .1 (C) / 98.8 (F) Weight: 136 lbs 12/26/2015 Blood Pressure 1: 142/78 Code: 8480-6 BMI: 24.6 Code: 93102-7 Heart Rate 1: 78 bpm Height: 5'3" Respiratory Rate: 20 bpm Temperature: 36 .7 (C) / 98.1 (F) Weight: 139 lbs 12/03/2015 Blood Pressure 1: 126/60 Code: 8480-6 BMI: 24.6 Code: 70388-7 Heart Rate 1: 100 bpm Height: 5'3" Respiratory Rate: 28 bpm Temperature: 37 .6 (C) / 99.6 (F) Weight: 139 lbs 09/10/2015 Blood Pressure 1: 124/64 Code: 8480-6 BMI: 23.7 Code: 34833-5 Heart Rate 1: 88 bpm Height: 5'3" Respiratory Rate: 24 bpm SpO2: 95% Tempera ture: 36.4 (C) / 97.6 (F) Weight: 134 lbs 08/06/2015 Blood Pressure 1: 114/76 Code: 8480-6 BMI: 23.2 Code: 15765-1 Heart Rate 1: 88 bpm Height: 5'3" Respiratory Rate: 22 bpm Temperature: 36 .6 (C) / 97.9 (F) Weight: 131 lbs 07/18/2015 Blood Pressure 1: 144/78 Code: 8480-6 BMI: 23.7 Code: 65933-8 Heart Rate 1: 84 bpm Height: 5'3" Respiratory Rate: 20 bpm Temperature: 37 .2 (C) / 99.0 (F) Weight: 134 lbs 04/10/2015 Blood Pressure 1: 110/64 Code: 8480-6 Heart Rate 1: 80 bpm Height: Respiratory Rate: 20 bpm Temperature: 37.1 (C) / 98.8 (F) Weight: 03/05/2015 Blood Pressure 1: 136/80 Code: 8480-6 BMI: 23.9 Code: 70225-0 Heart Rate 1: 76 bpm Height: 5'3" Respiratory Rate: 24 bpm Temperature: 37 .0 (C) / 98.6 (F) Weight: 135 lbs 01/30/2015 Blood Pressure 1: 142/80 Code: 8480-6 BMI: 23.0 Code: 71172-5 Heart Rate 1: 96 bpm Height: 5'3" Respiratory Rate: 22 bpm Temperature: 36 .2 (C) / 97.2 (F) Weight: 130 lbs 01/02/2015 Blood Pressure 1: 124/70 Code: 8480-6 BMI: 23.4 Code: 12024-1 Heart Rate 1: 84 bpm Height: 5'3" Respiratory Rate: 24 bpm SpO2: 95% Tempera ture: 36.9 (C) / 98.5 (F) Weight: 132 lbs 10/03/2014 Blood Pressure 1: 106/68 Code: 8480-6 BMI: 22.5 Code: 52524-2 Heart Rate 1: 88 bpm Height: 5'3" Respiratory Rate: 24 bpm Temperature: 37 .0 (C) / 98.6 (F) Weight: 127 lbs 08/27/2014 Blood Pressure 1: 124/68 Code: 8480-6 BMI: 21.1 Code: 19264-1 Heart Rate 1: 88 bpm Height: 5'3" [...] 1: 120/70 Code: 8480-6 BMI: 19.2 Code: 28686-6 Heart Rate 1: 70 bpm Height: 5'4" Respiratory Rate: 20 bpm Temperature: 36 .9 (C) / 98.4 (F) Weight: 112 lbs 06/28/2013 Blood Pressure 1: 102/68 Code: 8480-6 BMI: 19.6 Code: 73293-4 Heart Rate 1: 76 bpm Height: 5'4" Respiratory Rate: 20 bpm Temperature: 36 .8 (C) / 98.2 (F) Weight: 114 lbs 05/31/2013 Blood Pressure 1: 106/70 Code: 8480-6 BMI: 18.9 Code: 35548-0 Heart Rate 1: 100 bpm Height: 5'4" Respiratory Rate: 20 bpm Temperature: 36 .4 (C) / 97.6 (F) Weight: 110 lbs 05/03/2013 Blood Pressure 1: 126/70 Code: 8480-6 BMI: 19.1 Code: 49554-0 Heart Rate 1: 88 bpm Height: 5'4" Respiratory Rate: 20 bpm Temperature: 37 .1 (C) / 98.8 (F) Weight: 111 lbs 04/25/2013 Blood Pressure 1: 114/68 Code: 8480-6 BMI: 19.4 Code: 89043-9 Heart Rate 1: 92 bpm Height: 5'4" Respiratory Rate: 24 bpm SpO2: 96% Tempera ture: 37.7 (C) / 99.8 (F) Weight: 113 lbs 03/08/2013 Blood Pressure 1: 94/68 Code: 8480-6 BMI: 21.3 C ode: 43556-1 Heart Rate 1: 88 bpm Height: 5'4" Respiratory Rate: 24 bpm Temperature: 37 .0 (C) / 98.6 (F) Weight: 124 lbs 02/07/2013 Blood Pressure 1: 106/64 Code: 8480-6 BMI: 21.8 Code: 08196-9 Heart Rate 1: 84 bpm Height: 5'4" Respiratory Rate: 22 bpm Temperature: 36 .8 (C) / 98.2 (F) Weight: 127 lbs 01/10/2013 Blood Pressure 1: 122/68 Code: 8480-6 BMI: 21.6 Code: 16670-2 Heart Rate 1: 94 bpm Height: 5'4" SpO2: 94% Temperature: 36.7 (C) / 98.1 (F) Weight: 126 lbs 09/28/2012 Blood Pressure 1: 124/78 Code: 8480-6 BMI: 24.9 Code: 55448-8 Heart Rate 1: 92 bpm Height: 5'4" Respiratory Rate: 20 bpm Temperature: 36 .7 (C) / 98.1 (F) Weight: 145 lbs 06/28/2012 Blood Pressure 1: 134/80 Code: 8480-6 BMI: 24.9 Code: 14655-8 Heart Rate 1: 76 bpm Height: 5'4" Respiratory Rate: 20 bpm Temperature: 36 .8 (C) / 98.2 (F) Weight: 145 lbs 05/03/2012 Blood Pressure 1: 108/62 Code: 8480-6 BMI: 25.6 Code: 44704-5 Heart Rate 1: 88 bpm Height: 5'4" Temperature: 36.2 (C) / 97.2 (F) Weight: 149 lbs 03/01/2012 Blood Pressure 1: 124/66 Code: 8480-6 BMI: 25.1 Code: 89953-4 Heart Rate 1: 76 bpm Height: 5'4" Respiratory Rate: 20 bpm Temperature: 36 .6 (C) / 97.9 (F) Weight: 146 lbs 01/26/2012 Blood Pressure 1: 118/82 Code: 8480-6 BMI: 25.1 Code: 59532-0 Heart Rate 1: 74 bpm Height: 5'4" Temperature: 36.8 (C) / 98.2 (F) Weight: 146 lbs 11/03/2011 Blood Pressure 1: 126/80 Code: 8480-6 BMI: 27.3 Code: 34558-5 Heart Rate 1: 72 bpm Height: 5'4" [...] For Visit Effective Dates Notes follow up 10/30/2019 follow up 10/25/2019 follow [...] up 05/31/2013 sores 05/03/2013 follow up 04/25/2013 [facility] fw pain, generalized 03/08/2013 follow up [...] prozac Encounters Encounter Performer Location Codes Date ([id number]) OFFICE/OUTPATIENT VISIT EST Diagnosis: Chronic pain syndrome[ICD10: G89.4] Diagnosis: Lumbar degenerative disc disease[ICD10: M51.36] Diagnosis: Muscle spasm[ICD10: M62.838] Diagnosis: Spinal stenosis, lumbar region with neurogenic claudication[ICD10: M48.062] Diagnosis: Spondylosis without myelopathy or radiculopathy, 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] Vika Kenanroxannmerissa VEGAVIKA Eugenia RENTERIA [employer] CPT-4: 67335 10/30/2019 ([id number]) OFFICE/OUTPATIENT VISIT EST Diagnosis: Chronic pain syndrome[ICD10: G89.4] Vika Kenanbraden VEGADebi JERROD SandraSahara DEXTER [employer] CPT-4: 82675 10/25/2019 ([id number]) OFFICE/OUTPATIENT VISIT EST Diagnosis: Epigastric pain[ICD10: R10.13] Diagnosis: Nausea[ICD10: R11.0] Diagnosis: Chronic obstructive pulmonary disease, unspecified[ICD10: J44.9] Vika RENTERIA [employer] CPT-4: 18635 07/26/2019 ([id number]) OFFICE/OUTPATIENT VISIT EST Diagnosis: Chronic obstructive pulmonary disease with (acute) exacerbation[ICD10: J44.1] Diagnosis: Chronic respiratory failure with hypoxia[ICD10: J96.11] Diagnosis: Other fatigue[ICD10: R53.83] Diagnosis: Edema, unspecified[ICD10: R60.9] Vika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
--- OUTSIDE RECORDS SUMMARY | 2020-04-24 23:36 | XMS REPORT | CCD ---
Author Author Yana Renteria D.O. Organization [facility] Address [address] [place] [address] Phone Care Team Providers Care [employer]ian [employer] Name Role Phone Vika Renteria D.O., PP Unavailable CCM Unavailable Summary Purpose Interface Exchange Insurance Providers Payer name Policy type / Coverage type Covered democrat ID Effective Begin Date Effective End Date [employer] [facility] Medicaid [id number] 2018 U nknown Family History Family History data not found Social History Social History Element Codes Description Effective Dates Marital status Unknown 06/28/[address]: [id number] Currently smokes tobacco 05/2013 Allergies, Adverse Reactions, [...] MS Contin 200 mg tablet,extended release RxNorm: 942479 1 Tablet(s) Oral two times a day replaces 100mg dose 11/03/2019 12/02/2019 Active MS Contin 200 mg tablet,extended release RxNorm: 543418 1 Tablet(s) Oral two times a day replaces 100mg dose 11/03/2019 11/02/2019 Inactive ferrous sulfate 325 mg (65 mg iron) tablet RxNorm: 313237 1 Tab let(s) Oral QD 10/30/2019 No Stop Date Active MS Contin 100 mg tablet,extended release RxNorm: 433082 1 Table t(s) Oral QD 10/30/2019 10/29/2019 Inactive MS Contin 100 mg tablet,extended release RxNorm: 659740 1 Table t(s) Oral QD 10/30/2019 11/02/2019 Inactive Relistor 150 mg tablet RxNorm: 3504196 TAKE THREE TABLETS BY BENOIT TH DAILY 10/25/2019 No Stop Date Active oxycodone 15 mg tablet RxNorm: 4448099 1 Tablet(s) Oral four times a day as needed for pain 10/25/2019 10/25/2019 Inactive pantoprazole 40 mg tablet,delayed release RxNorm: 534220 1 Tabl et(s) Oral QD 10/25/2019 No Stop Date Active metformin 500 mg tablet RxNorm: 818377 1 Tablet(s) Oral QD 10/25/20 19 No Stop Date Active levothyroxine 25 mcg tablet RxNorm: 688810 1 Tablet(s) Oral QAM 02/201912/23/2019 Active Minipress 2 mg capsule RxNorm: 805322 1 Capsule(s) Oral QAM and 3 at bedtime 10/25/2019 No Stop Date Active Lancets, Super Thin RxNorm: 1 Unit Dose Miscellaneous QD 9 11/27/2020 Active Cymbalta 60 mg capsule,delayed release RxNorm: 136983 1 Capsule (s) Oral QAM 10/25/2019 No Stop Date Active Cymbalta 30 mg capsule,delayed release RxNorm: 019507 1 Capsule (s) Oral QAM 10/25/2019 No Stop Date Active levothyroxine 25 mcg tablet RxNorm: 551361 1 Tablet(s) Oral QAM 02/201910/24/2019 Inactive MS Contin 100 mg tablet,extended release RxNorm: 015130 1 Tablet(s) Oral two times a day replaces fentanyl 10/25/2019 10/25/2019 Inactive Premarin 0.45 mg tablet RxNorm: 258359 TAKE ONE TABLET BY MOUTH DAILY 10/24/2019 No Stop Date Active Duragesic 100 mcg/hr transdermal patch RxNorm: 591069 2 Application TD Q48H for pain 10/18/2019 10/24/2019 Inactive gabapentin 300 mg capsule RxNorm: 397265 TAKE ONE CAPSULE BY MO UTH TWICE A DAY 10/16/2019 No Stop Date Active cyclobenzaprine 10 mg tablet RxNorm: 872297 TAKE ONE TA BLET BY MOUTH THREE TIMES A DAY NEEDED 09/27/2019 No Stop Date Active ProAir HFA 90 mcg/actuation aerosol inhaler RxNorm: 297287 INHALE ONE PUFF BY MOUTH EVERY 4 HOURS FOR WHEEZING OR FOR SHORTNESS OF BREATH 09/25/2019 No Stop Date Active furosemide 40 mg tablet RxNorm: 405893 1 Tablet(s) Oral QAM as needed 09/25/2019 09/25/2019 Inactive Relistor 150 mg tablet RxNorm: 3690393 TAKE THREE TABLETS BY BENOIT TH DAILY 09/25/2019 10/24/2019 Inactive oxycodone 15 mg tablet RxNorm: 8218486 1 Tablet(s) PO QID as nee ded for pain 09/21/2019 10/24/2019 Inactive Duragesic 100 mcg/hr transdermal patch RxNorm: 816659 2 Application TD Q48H for pain 09/19/2019 10/17/2019 Inactive Daliresp 500 mcg tablet RxNorm: 7619121 1 Tablet(s) Oral QD 019 03/08/2020 Active potassium chloride ER 20 mEq tablet,extended release RxNorm: 293559 TAKE ONE TABLET BY MOUTH DAILY 07/25/2019 01/20/2020 Active Relistor 150 mg tablet RxNorm: 1220806 TAKE THREE TABLETS BY BENOIT TH DAILY 07/25/2019 07/30/2019 Inactive cyclobenzaprine 10 mg tablet RxNorm: 422760 TAKE ONE TA BLET BY MOUTH THREE TIMES A DAY NEEDED 07/25/2019 09/22/2019 Inactive fluoxetine 40 mg capsule RxNorm: 960250 TAKE ONE CAPSULE BY BENOIT TH EVERY MORNING 07/11/2019 10/24/2019 Inactive Medrol (Aníbal) 4 mg tablets in a dose pack RxNorm: 411360 6 Tablet(s) PO QD --then as directed 07/10/2019 07/15/2019 Inactive omeprazole 40 mg capsule,delayed release RxNorm: 685870 1 Capsule(s) PO QD for stomach TAKE ONE CAPSULE BY MOUTH DAILY 07/10/2019 10/24/2019 Inactive Augmentin 875 mg-125 mg tablet RxNorm: 779589 1 Tablet(s) PO BID 07/16/2019 Inactive Trulicity 0.75 mg/0.5 mL subcutaneous pen injector RxNorm: 1 893901 0.75 Milliliter(s) SQ weekly 07/05/2019 10/24/2019 Inactive Compazine 10 mg tablet RxNorm: 406176 TAKE ONE TABLET B Y MOUTH FOUR TIMES A DAY NEEDED FOR NAUSEA 06/20/2019 07/19/2019 Inactive ProAir HFA 90 mcg/actuation aerosol inhaler RxNorm: 806027 INHALE ONE PUFF BY MOUTH EVERY 4 HOURS FOR WHEEZING OR FOR SHORTNESS OF BREATH 06/20/2019 06/23/2019 Inactive Daliresp 500 mcg tablet RxNorm: 1685127 TAKE ONE TABLET BY MOUTH DAILY 06/12/2019 09/10/2019 Inactive bouapwpn-ndvygywnt-jiztbmasb 3.5 mg/mL-10,000 unit/mL- 1 % ear solution RxNorm: 273856 4 Drop(s) otic (ear) TID to left ear 06/05/2019 10/24/2019 Inac tive furosemide 40 mg tablet RxNorm: 482284 TAKE ONE TABLET BY MOUTH EVERY MORNING 05/26/2019 07/09/2019 Inactive Duragesic 100 mcg/hr transdermal patch RxNorm: 940101 2 Application TD Q48H for pain 05/16/2019 06/14/2019 Inactive oxycodone 15 mg tablet RxNorm: 9258198 1 Tablet(s) PO QID as nee ded for pain 05/10/2019 09/20/2019 Inactive doxycycline hyclate 100 mg capsule RxNorm: 3435436 1 Capsule(s) PO BID 05/03/2019 05/12/2019 Inactive prednisone 20 mg tablet RxNorm: 191762 1 Tablet(s) PO T ID for 3 days then 1 po BID for 3 days then one daily for 3 days 05/03/2019 07/11/2019 Inactiv e Ozempic 0.25 mg or 0.5 mg (2 mg/1.5 mL) subcutaneous p en injector RxNorm: 1263398 0.5 Milligram(s) SQ QW 05/03/2019 07/09/2019 Inactive fluconazole 100 mg tablet RxNorm: 673949 1 Tablet(s) PO QD 05/03/2005/07/2019 Inactive Premarin 0.45 mg tablet RxNorm: 711999 TAKE ONE TABLET BY MOUTH DAILY 05/03/2019 10/23/2019 Inactive potassium chloride ER 20 mEq tablet,extended release RxNorm: 178992 1 Tablet(s) PO QD 04/27/2019 07/25/2019 Inactive potassium chloride ER 20 mEq tablet,extended release RxNorm: 503669 1 Tablet(s) PO QD 04/25/2019 04/26/2019 Inactive Compazine 10 mg tablet RxNorm: 521771 1 Tablet(s) PO QID as nee ded for nausea 04/25/2019 05/04/2019 Inactive ProAir HFA 90 mcg/actuation aerosol inhaler RxNorm: 118079 INHALE ONE PUFF BY MOUTH EVERY 4 HOURS FOR WHEEZING OR FOR SHORTNESS OF BREATH 04/12/2019 06/10/2019 Inactive Medrol (Aníbal) 4 mg tablets in a dose pack RxNorm: 528509 6 Tablet(s) PO QD --then as directed 04/11/2019 04/16/2019 Inactive Symbicort 160 mcg-4.5 mcg/actuation HFA aerosol inhaler RxNo rm: 2537875 2 Puff(s) INH BID 04/10/2019 10/06/2019 Inactive levothyroxine 50 mcg tablet RxNorm: 539590 1 Tablet(s) PO QD 201810/24/2019 Inactive gabapentin 300 mg capsule RxNorm: 197743 1 Capsule(s) PO BID 201810/02/2019 Inactive Symbicort 160 mcg-4.5 mcg/actuation HFA aerosol inhaler RxNo rm: 5053876 2 Puff(s) INH BID 04/06/2019 04/09/2019 Inactive oxycodone 15 mg tablet RxNorm: 9313832 1 Tablet(s) PO QID as nee ded for pain 04/05/2019 05/09/2019 Inactive levothyroxine 50 mcg tablet RxNorm: 618874 1 Tablet(s) PO QD 201804/09/2019 Inactive furosemide 40 mg tablet RxNorm: 258252 TAKE ONE TABLET BY MOUTH EVERY MORNING 03/21/2019 04/19/2019 Inactive levothyroxine 50 mcg tablet RxNorm: 860581 TAKE ONE TABLET BY M OUTH DAILY 03/21/2019 03/27/2019 Inactive Duragesic 100 mcg/hr transdermal patch RxNorm: 811417 2 Application TD Q48H for pain 03/13/2019 04/11/2019 Inactive oxycodone 15 mg tablet RxNorm: 1686221 1 Tablet(s) PO QID as nee ded for pain 03/06/2019 04/04/2019 Inactive Relistor 150 mg tablet RxNorm: 2824677 3 Tablet(s) PO QD 02/28/2019 0 05/28/2019 Inactive cyclobenzaprine 10 mg tablet RxNorm: 069459 1 Tablet(s) PO TID as needed 02/28/2019 05/28/2019 Inactive phentermine 37.5 mg tablet RxNorm: 039807 1 Tablet(s) PO QAM 201803/15/2019 Inactive Duragesic 100 mcg/hr transdermal patch RxNorm: 364170 2 Application TD Q48H for pain 02/09/2019 03/10/2019 Inactive Daliresp 500 mcg tablet RxNorm: 8387259 TAKE ONE TABLET BY MOUTH DAILY 01/31/2019 05/30/2019 Inactive Premarin 0.45 mg tablet RxNorm: 077592 1 Tablet(s) PO QD 01/31/2019 0 04/30/2019 Inactive fluoxetine 40 mg capsule RxNorm: 285768 Capsule(s) TAKE ONE CAPSULE BY MOUTH EVERY MORNING 01/31/2019 04/30/2019 Inactive levothyroxine 50 mcg tablet RxNorm: 699848 1 Tablet(s) PO QD 201804/10/2019 Inactive follow up in 3 weeks levothyroxine 50 mcg tablet RxNorm: 438354 1 Tablet(s) PO QD 201801/25/2019 Inactive follow up in 3 weeks potassium chloride ER 20 mEq tablet,extended release RxNorm: 634661 2 Tablet(s) PO BID 01/23/2019 02/14/2019 Inactive Synthroid 50 mcg tablet RxNorm: 339015 TAKE ONE TABLET BY MOUTH DAILY 01/16/2019 10/24/2019 Inactive potassium chloride ER 20 mEq tablet,extended release RxNorm: 230819 2 Tablet(s) PO BID 01/04/2019 01/22/2019 Inactive ProAir HFA 90 mcg/actuation aerosol inhaler RxNorm: 433419 INHALE ONE PUFF BY MOUTH EVERY 4 HOURS FOR WHEEZING OR SHORTNESS OF BREATH 01/04/201902/20 Inactive Request already responded to by other me ans (e.g. phone or fax) ProAir HFA 90 mcg/actuation aerosol inhaler RxNorm: 5500156 INHALE ONE PUFF BY MOUTH EVERY 4 HOURS FOR WHEEZING OR SHORTNESS OF BREATH 01/02/201912/23 Inactive gabapentin 300 mg capsule RxNorm: 835300 TAKE ONE CAPSULE BY MO UTH TWICE A DAY 12/30/2018 04/06/2019 Inactive furosemide 40 mg tablet RxNorm: 490459 1 Tablet(s) PO QAM 12/26/2018 02/23/2019 Inactive Compazine 10 mg tablet RxNorm: 677839 1 Tablet(s) PO QID as nee ded for nausea 12/07/2018 12/16/2018 Inactive metolazone 2.5 mg tablet RxNorm: 945567 TAKE ONE TABLET BY MOUT H EVERY MORNING 12/05/2018 01/03/2019 Inactive metformin ER 500 mg tablet,extended release 24 hr RxNorm: 86 0975 TAKE ONE TABLET BY MOUTH DAILY 12/05/2018 04/10/2019 Inactive Synthroid 50 mcg tablet RxNorm: 790803 1 Tablet(s) PO QD 11/25/2018 0 01/03/2019 Inactive DC any other synthroid strengths. Should be 50mcg only cyclobenzaprine 10 mg tablet RxNorm: 255483 TAKE ONE TA BLET BY MOUTH THREE TIMES A DAY NEEDED 11/09/2018 02/06/2019 Inactive metolazone 2.5 mg tablet RxNorm: 769366 1 Tablet(s) PO QAM repl aces 5mg dose 11/02/2018 12/01/2018 Inactive potassium chloride ER 20 mEq tablet,extended release RxNorm: 251493 2 Tablet(s) PO QD 2018 01/02/2019 Inactive Compazine 10 mg tablet RxNorm: 295423 1 Tablet(s) PO QID as nee ded for nausea 10/18/2018 12/07/2018 Inactive furosemide 40 mg tablet RxNorm: 009978 1 Tablet(s) PO QAM 10/12/2018 12/10/2018 Inactive ondansetron 8 mg disintegrating tablet RxNorm: 582914 1 Tablet(s) PO Q6H as needed 10/11/2018 10/17/2018 Inactive scopolamine 1 mg over 3 days transdermal patch RxNorm: 47586 2 1 Application TD behind ear. Take off after three days 10/11/2018 01/02/2019 Inactive furosemide 40 mg tablet RxNorm: 970899 1 Tablet(s) PO QAM 10/10/2018 12/26/2018 Inactive metolazone 5 mg tablet RxNorm: 762620 1 Tablet(s) PO QAM 10/06/2018 1 01/03/2018 Inactive metolazone 5 mg tablet RxNorm: 542687 1 Tablet(s) PO QAM 10/06/2018 1 12/05/2017 Inactive Xtampza ER 36 mg capsule sprinkle RxNorm: 4319856 1 Capsule(s) P O BID 10/05/2018 01/02/2019 Inactive Xtampza ER 36 mg capsule sprinkle RxNorm: 4821933 1 Capsule(s) P O BID 10/05/2018 02/12/2019 Inactive omeprazole 40 mg capsule,delayed release RxNorm: 783879 TAKE ONE CAPSULE BY MOUTH DAILY 10/03/2018 12/31/2018 Inactive Duragesic 100 mcg/hr transdermal patch RxNorm: 016962 2 Application TD Q48H for pain 09/30/2018 10/29/2018 Inactive Synthroid 50 mcg tablet RxNorm: 131309 1 Tablet(s) PO QD 09/29/2018 0 11/25/2018 Inactive DC any other synthroid strengths. Should be 50mcg only Synthroid 50 mcg tablet RxNorm: 514000 1 Tablet(s) PO QD 09/29/2018 1 11/28/2017 Inactive furosemide 40 mg tablet RxNorm: 913080 2 Tablet(s) PO Q AM for 1 week then every other day for 2 weeks 09/27/2018 10/12/2018 Inactive fluoxetine 40 mg capsule RxNorm: 130740 2 Capsule(s) PO QD 09/27/20 18 10/17/2018 Inactive potassium chloride ER 20 mEq tablet,extended release RxNorm: 145667 2 Tablet(s) PO QD for 1 week then every other day for 2 weeks 09/27/2018 2018 Inactive ProAir HFA 90 mcg/actuation aerosol inhaler RxNorm: 3864250 INHALE ONE PUFF BY MOUTH EVERY 4 HOURS FOR WHEEZING OR SHORTNESS OF BREATH 09/26/201811/23 Inactive Synthroid 75 mcg tablet RxNorm: 430795 1 Tablet(s) PO QD 09/09/2018 1 Inactive Synthroid 75 mcg tablet RxNorm: 770339 1 Tablet(s) PO QD 09/09/2018 1 11/28/2017 Inactive furosemide 40 mg tablet RxNorm: 712104 1 Tablet(s) PO QD 09/06/2018 1 Inactive potassium chloride ER 20 mEq tablet,extended release RxNorm: 013400 1 Tablet(s) PO QD 09/06/2018 09/19/2018 Inactive Duragesic 100 mcg/hr transdermal patch RxNorm: 453208 2 Application TD Q48H for pain 08/30/2018 09/28/2018 Inactive gabapentin 300 mg capsule RxNorm: 542511 TAKE ONE CAPSULE BY [facility] TWICE A DAY 08/23/2018 12/20/2018 Inactive Daliresp 500 mcg tablet RxNorm: 1551436 TAKE ONE TABLET BY MOUTH DAILY 08/23/2018 01/19/2019 Inactive Pulmicort 1 mg/2 mL suspension for nebulization RxNorm: 6168 19 USE ONE VIAL VIA NEBULIZER BY MOUTH TWICE A DAY 08/23/2018 07/11/2019 Inactive Synthroid 88 mcg tablet RxNorm: 000651 1 Tablet(s) PO QD 08/19/2018 1 Inactive Medrol (Aníbal) 4 mg tablets in a dose pack RxNorm: 132403 Tablet(s) PO take as directed 08/16/2018 09/05/2018 Inactive Relistor 150 mg tablet RxNorm: 8507945 3 Tablet(s) PO QD 08/16/2018 1 Inactive Zithromax Z-Aníbal 250 mg tablet RxNorm: 634462 Tablet(s) PO take as directed 08/16/2018 09/05/2018 Inactive cyclobenzaprine 10 mg tablet RxNorm: 771945 1 Tablet(s) PO TID as needed 08/16/2018 11/08/2018 Inactive Synthroid 88 mcg tablet RxNorm: 617939 1 Tablet(s) PO Q D NEEDS UPDATED LABS BEFORE FURTHER REFILLS 08/08/2018 08/19/2018 Inactive Premarin 0.45 mg tablet RxNorm: 406586 1 Tablet(s) PO QD 08/03/2018 0 01/31/2019 Inactive fluoxetine 20 mg capsule RxNorm: 362211 TAKE ONE CAPSULE BY BENOIT TH DAILY 08/03/2018 09/26/2018 Inactive Xtampza ER 36 mg capsule sprinkle RxNorm: 8267728 1 Capsule(s) P O BID 08/03/2018 09/01/2018 Inactive metformin ER 500 mg tablet,extended release 24 hr RxNorm: 86 0975 1 Tablet(s) PO QD 08/03/2018 10/31/2018 Inactive Symbicort 160 mcg-4.5 mcg/actuation HFA aerosol inhaler RxNo rm: 5351673 2 Puff(s) INH BID 08/03/2018 01/29/2019 Inactive Duragesic 100 mcg/hr transdermal patch RxNorm: 302013 2 Application TD Q48H for pain 07/29/2018 08/27/2018 Inactive ProAir HFA 90 mcg/actuation aerosol inhaler RxNorm: 859575 INHALE TWO PUFFS BY MOUTH EVERY 4 HOURS FOR WHEEZING OR SHORTNESS OF BREATH 07/27/201802/2018 Inactive Relistor 150 mg tablet RxNorm: 5291825 3 Tablet(s) PO QD 07/20/2018 0 08/15/2018 Inactive metformin ER 500 mg tablet,extended release 24 hr RxNorm: 86 0975 TAKE ONE TABLET BY MOUTH DAILY 07/08/2018 08/02/2018 Inactive fluoxetine 40 mg capsule RxNorm: 769814 TAKE ONE CAPSULE BY BENOIT TH EVERY MORNING 07/08/2018 10/05/2018 Inactive Xtampza ER 18 mg capsule sprinkle RxNorm: 5686792 1 Capsule(s) P O BID 07/08/2018 08/02/2018 Inactive Relistor 150 mg tablet RxNorm: 6666574 3 Tablet(s) PO QD 07/08/2018 0 07/12/2018 Inactive Synthroid 88 mcg tablet RxNorm: 111020 1 Tablet(s) PO Q D NEEDS UPDATED LABS BEFORE FURTHER REFILLS 06/23/2018 07/07/2018 Inactive fluoxetine 40 mg capsule RxNorm: 888396 TAKE ONE CAPSULE BY BENOIT TH EVERY MORNING 06/15/2018 09/26/2018 Inactive orphenadrine citrate ER 100 mg tablet,extended release RxNor m: 753524 TAKE ONE TABLET BY MOUTH TWICE A DAY FOR MUSCLE SPASM 06/15/2018 08/15/2018 [place] ct[place] Duragesic 100 mcg/hr transdermal patch RxNorm: 200251 2 Application TD Q48H for pain 05/30/2018 06/28/2018 Inactive ProAir HFA 90 mcg/actuation aerosol inhaler RxNorm: 217386 INHALE TWO PUFFS BY MOUTH EVERY 4 HOURS FOR WHEEZING OR SHORTNESS OF BREATH 05/19/2018/0 03/2018 Inactive Chantix Continuing Month Box 1 mg tablet RxNorm: 336495 TAKE ONE TABLET BY MOUTH TWICE A DAY 05/19/2018 08/15/2018 Inactive oxycodone 10 mg tablet RxNorm: 8638442 1-2 Tablet(s) PO QID as n eeded for pain 05/19/2018 07/07/2018 Inactive gabapentin 300 mg capsule RxNorm: 065734 TAKE ONE CAPSULE BY MO UTH TWICE A DAY 05/18/2018 07/16/2018 Inactive ProAir HFA 90 mcg/actuation aerosol inhaler RxNorm: 344296 INHALE TWO PUFFS BY MOUTH EVERY 4 HOURS FOR WHEEZING OR SHORTNESS OF BREATH 05/04/201804/23 Inactive Augmentin 500 mg-125 mg tablet RxNorm: 681396 1 Tablet(s) PO BID 05/03/2018 Inactive oxycodone 10 mg tablet RxNorm: 4436354 1-2 Tablet(s) PO QID as n eeded for pain 04/21/2018 05/18/2018 Inactive Synthroid 88 mcg tablet RxNorm: 371005 1 Tablet(s) PO QD 04/15/2018 0 08/08/2018 Inactive Symbicort 160 mcg-4.5 mcg/actuation HFA aerosol inhaler RxNo rm: 4467570 2 Puff(s) INH BID 04/15/2018 04/10/2019 Inactive Premarin 0.45 mg tablet RxNorm: 405632 1 Tablet(s) PO QD 04/15/2018 0 08/03/2018 Inactive ProAir HFA 90 mcg/actuation aerosol inhaler RxNorm: 936230 2 Puff(s) INH Q4H prn for wheezing or shortness of breath 04/15/2018 05/03/2018 Inactive metformin ER 500 mg tablet,extended release 24 hr RxNorm: 86 0975 1 Tablet(s) PO QD 04/11/2018 07/07/2018 Inactive omeprazole 40 mg capsule,delayed release RxNorm: 237052 TAKE ONE CAPSULE BY MOUTH DAILY 04/10/2018 06/08/2018 Inactive Synthroid 88 mcg tablet RxNorm: 679753 1 Tablet(s) PO QD 04/04/2018 0 04/14/2018 Inactive Synthroid 88 mcg tablet RxNorm: 139912 1 Tablet(s) PO QD 04/04/2018 0 04/03/2018 Inactive orphenadrine citrate ER 100 mg tablet,extended release RxNor m: 360491 1 Tablet(s) PO BID for muscle spasm 04/04/2018 05/03/2018 Inactive metformin ER 500 mg tablet,extended release 24 hr RxNorm: 86 0975 1 Tablet(s) PO QD NEEDS UPDATED LABS 03/31/2018 04/11/2018 Inactive doxycycline hyclate 100 mg capsule RxNorm: 7215118 1 Capsule(s) PO BID 03/31/2018 04/09/2018 Inactive prednisone 20 mg tablet RxNorm: 546678 3 Tablet(s) PO T ID for 3 days then 1 po BID for 3 days then one daily for 3 days 03/31/2018 07/06/2018 Inactiv roxie Chantix Continuing Month Box 1 mg tablet RxNorm: 191094 TAKE ONE TABLET BY MOUTH TWICE A DAY 03/25/2018 03/30/2018 Inactive oxycodone 10 mg tablet RxNorm: 7928023 1-2 Tablet(s) PO QID as n eeded for pain 03/21/2018 04/20/2018 Inactive Daliresp 500 mcg tablet RxNorm: 1387038 1 Tablet(s) PO QD 03/15/2018 08/22/2018 Inactive metformin ER 500 mg tablet,extended release 24 hr RxNorm: 86 0975 1 Tablet(s) PO QD NEEDS UPDATED LABS 03/14/2018 03/31/2018 Inactive nystatin 100,000 unit/mL oral suspension RxNorm: 341595 5 Chio liter(s) PO QID 03/02/2018 03/15/2018 Inactive nystatin 100,000 unit/mL oral suspension RxNorm: 509337 5 Chio liter(s) PO QID 03/02/2018 03/01/2018 Inactive oxycodone 10 mg tablet RxNorm: 8934235 1-2 Tablet(s) PO QID as n eeded for pain 02/16/2018 03/20/2018 Inactive fluoxetine 20 mg capsule RxNorm: 301311 1 Capsule(s) PO QD 02/15/20 18 08/02/2018 Inactive metformin ER 500 mg tablet,extended release 24 hr RxNorm: 86 0975 1 Tablet(s) PO QD Needs updated labs 02/14/2018 03/14/2018 Inactive cefdinir 300 mg capsule RxNorm: 553954 1 Capsule(s) PO BID 01/27/20 18 02/04/2018 Inactive orphenadrine citrate ER 100 mg tablet,extended release RxNor m: 022367 1 Tablet(s) PO BID for muscle spasm 01/26/2018 04/04/2018 Inactive gabapentin 300 mg capsule RxNorm: 510751 1 Capsule(s) PO BID 201704/17/2018 Inactive oxycodone 10 mg tablet RxNorm: 8088451 1-2 Tablet(s) PO QID as n eeded for pain 01/17/2018 02/15/2018 Inactive Duragesic 100 mcg/hr transdermal patch RxNorm: 111862 2 Application TD Q48H for pain 01/17/2018 02/15/2018 Inactive gabapentin 300 mg capsule RxNorm: 256790 TAKE ONE CAPSULE BY MO UTH TWICE A DAY 12/20/2017 01/18/2018 Inactive fluoxetine 40 mg capsule RxNorm: 602796 TAKE ONE CAPSULE BY BENOIT TH EVERY MORNING 12/15/2017 03/14/2018 Inactive OneTouch Ultra Test strips RxNorm: TEST DAILY 11/04/2017 02/01/2018 Inactive gabapentin 300 mg capsule RxNorm: 332194 1 Capsule(s) P O TID replaces BID dosing 10/26/2017 02/22/2018 Inactive oxycodone 10 mg tablet RxNorm: 2199318 1-2 Tablet(s) PO QID as n eeded for pain 10/18/2017 01/16/2018 Inactive Duragesic 100 mcg/hr transdermal patch RxNorm: 887045 2 Application TD Q48H for pain 10/18/2017 11/16/2017 Inactive gabapentin 300 mg capsule RxNorm: 236817 1 Capsule(s) PO BID 201610/25/2017 Inactive Abilify 5 mg tablet RxNorm: 398910 1 Tablet(s) PO QAM 09/23/201702/2017 Inactive gabapentin 300 mg capsule RxNorm: 909909 1 Capsule(s) PO BID 201610/17/2017 Inactive oxycodone 10 mg tablet RxNorm: 9736377 1-2 Tablet(s) PO QID as n eeded for pain 09/15/2017 10/17/2017 Inactive Duragesic 100 mcg/hr transdermal patch RxNorm: 724791 2 Application TD Q48H for pain 09/15/2017 10/14/2017 Inactive Duragesic 100 mcg/hr transdermal patch RxNorm: 658655 2 Application TD Q48H for pain 09/15/2017 10/24/2019 Inactive oxycodone 10 mg tablet RxNorm: 0488400 1-2 Tablet(s) PO QID as n eeded for pain 09/15/2017 08/15/2018 Inactive Daliresp 500 mcg tablet RxNorm: 0332666 1 Tablet(s) PO QD 09/06/2017 03/15/2018 Inactive Ventolin HFA 90 mcg/actuation aerosol inhaler RxNorm: 602599 2 Puff(s) INH Q4H as needed 09/02/2017 05/19/2018 Inactive oxycodone 10 mg tablet RxNorm: 8014843 1-2 Tablet(s) PO QID as n eeded for pain 08/17/2017 09/14/2017 Inactive Duragesic 100 mcg/hr transdermal patch RxNorm: 943209 2 Application TD Q48H for pain 08/17/2017 09/14/2017 Inactive fluoxetine 40 mg capsule RxNorm: 504183 Capsule(s) TAKE ONE CAPSULE BY MOUTH EVERY MORNING 08/17/2017 12/14/2017 Inactive Pulmicort 1 mg/2 mL suspension for nebulization RxNorm: 6168 19 1 Unit Dose INH BID Dx: COPD (J44.9) 08/16/2017 08/22/2018 Inactive gabapentin 300 mg capsule RxNorm: 538591 1 Capsule(s) PO QHS 201610/18/2017 Inactive fluoxetine 20 mg capsule RxNorm: 373255 1 Capsule(s) PO QD 08/12/20 17 02/14/2018 Inactive Abilify 2 mg tablet RxNorm: 912414 1 Tablet(s) PO QD TA KE ONE TABLET BY MOUTH DAILY 08/12/2017 10/25/2017 Inactive metformin ER 500 mg tablet,extended release 24 hr RxNorm: 86 0975 1 Tablet(s) PO QD 08/10/2017 02/14/2018 Inactive Synthroid 112 mcg tablet RxNorm: 310915 1 Tablet(s) PO QD 08/10/2017 04/15/2018 Inactive oxycodone 10 mg tablet RxNorm: 6448512 1-2 Tablet(s) PO QID as n eeded for pain 07/19/2017 08/16/2017 Inactive Duragesic 100 mcg/hr transdermal patch RxNorm: 077711 2 Application TD Q48H for pain 07/19/2017 08/16/2017 Inactive Ventolin HFA 90 mcg/actuation aerosol inhaler RxNorm: 205189 2 Puff(s) INH Q4H as needed 07/12/2017 09/02/2017 Inactive Abilify 2 mg tablet RxNorm: 536842 1 Tablet(s) PO QD TA KE ONE TABLET BY MOUTH DAILY 07/06/2017 08/11/2017 Inactive gabapentin 800 mg tablet RxNorm: 129708 1 Tablet(s) PO TID 06/22/20 17 07/05/2017 Inactive Chantix Starting Month Box 0.5 mg (11)-1 mg (42) table ts in dose pack RxNorm: 188859 TAKE BY MOUTH INSTRUCTED - PER PACKAGE INSTRUCTIONS 06/0707/04/2017 Inactive Ventolin HFA 90 mcg/actuation aerosol inhaler RxNorm: 438494 2 Puff(s) INH Q4H as needed 05/26/2017 07/12/2017 Inactive Duragesic 100 mcg/hr transdermal patch RxNorm: 475487 2 Application TD Q48H for pain 05/19/2017 06/17/2017 Inactive oxycodone 10 mg tablet RxNorm: 1538998 1-2 Tablet(s) PO QID as n eeded for pain 05/19/2017 07/18/2017 Inactive Abilify 2 mg tablet RxNorm: 081947 TAKE ONE TABLET BY MOUTH DAILY 0 05/10/2017 07/05/2017 Inactive Synthroid 112 mcg tablet RxNorm: 267244 1 Tablet(s) PO QD 05/06/2017 08/10/2017 Inactive metformin ER 500 mg tablet,extended release 24 hr RxNorm: 86 0975 1 Tablet(s) PO QD 05/06/2017 08/10/2017 Inactive Topamax 100 mg tablet RxNorm: 305652 1 Tablet(s) PO QHS 05/06/2017 Inactive Premarin 0.45 mg tablet RxNorm: 042461 1 Tablet(s) PO QD 05/06/2017 0 04/15/2018 Inactive orphenadrine citrate ER 100 mg tablet,extended release RxNor m: 910574 1 Tablet(s) PO TID for muscle spasm--replaces methocarbamol 04/29/2017 Inactive oxycodone 10 mg tablet RxNorm: 9956712 1-2 Tablet(s) PO QID as n eeded for pain 04/21/2017 05/18/2017 Inactive Duragesic 100 mcg/hr transdermal patch RxNorm: 407177 2 Application TD Q48H for pain 04/21/2017 05/18/2017 Inactive fluoxetine 40 mg capsule RxNorm: 325971 Capsule(s) TAKE ONE CAPSULE BY MOUTH EVERY MORNING 04/20/2017 08/17/2017 Inactive Ventolin HFA 90 mcg/actuation aerosol inhaler RxNorm: 334464 2 Puff(s) INH Q4H as needed 04/05/2017 05/26/2017 Inactive Symbicort 160 mcg-4.5 mcg/actuation HFA aerosol inhaler RxNo rm: 1108537 2 Puff(s) INH BID 03/30/2017 04/15/2018 Inactive Spiriva with HandiHaler 18 mcg and inhalation capsules RxNor m: 348033 1 Capsule(s) INH QD USING HANDIHALER 03/30/2017 02/12/2019 Inactive Duragesic 100 mcg/hr transdermal patch RxNorm: 072070 2 Application TD Q48H for pain 03/18/2017 04/16/2017 Inactive oxycodone 10 mg tablet RxNorm: 4034418 1-2 Tablet(s) PO QID as n eeded for pain 03/18/2017 04/20/2017 Inactive metformin ER 500 mg tablet,extended release 24 hr RxNorm: 86 0975 Tablet(s) TAKE ONE TABLET BY MOUTH DAILY 03/01/2017 05/06/2017 Inactive Premarin 0.45 mg tablet RxNorm: 592739 Tablet(s) TAKE ONE TABLE T BY MOUTH DAILY 03/01/2017 05/06/2017 Inactive Synthroid 112 mcg tablet RxNorm: 012429 Tablet(s) TAKE ONE TABLET BY MOUTH DAILY 03/01/2017 05/06/2017 Inactive Daliresp 500 mcg tablet RxNorm: 1242258 1 Tablet(s) PO QD 03/01/2017 09/06/2017 Inactive 16.2 mg-0.1037 mg-0.0194 mg tablet RxNorm: 5104644 Tablet(s) PO PRN for gas and cramping 02/23/2017 04/28/2017 Inactive TAKE TWO TABLET S BY MOUTH THREE TIMES A DAY NEEDED FOR GAS AND CRAMPING gabapentin 800 mg tablet RxNorm: 186864 1 Tablet(s) PO TID repl aces 600mg 02/23/2017 04/28/2017 Inactive Duragesic 100 mcg/hr transdermal patch RxNorm: 755696 2 Application TD Q48H for pain 02/17/2017 03/17/2017 Inactive fluoxetine 20 mg capsule RxNorm: 104611 1 Capsule(s) PO QD 02/18/20 17 08/12/2017 Inactive oxycodone 20 mg tablet RxNorm: 7770318 1 Tablet(s) PO QID as nee ded for pain 02/17/2017 03/17/2017 Inactive Ventolin HFA 90 mcg/actuation aerosol inhaler RxNorm: 662864 INHALE TWO PUFFS BY MOUTH EVERY 4 HOURS NEEDED 02/15/2017 04/05/2017 Inactive Silvadene 1 % topical cream RxNorm: 627772 1 Application TOP BI D to burn area 02/01/2017 09/22/2017 Inactive Topamax 100 mg tablet RxNorm: 785704 TAKE ONE TABLET BY MOUTH EVERY NIGHT AT BEDTIME 01/29/2017 05/06/2017 Inactive Chantix Starting Month Box 0.5 mg (11)-1 mg (42) table ts in dose pack RxNorm: 697421 Tablet(s) PO as directed 01/29/2017 06/01/2017 Inactive Abilify 2 mg tablet RxNorm: 265204 TAKE ONE TABLET BY MOUTH DAILY 0 01/26/2017 04/25/2017 Inactive Chantix Starting Month Box 0.5 mg (11)-1 mg (42) table ts in dose pack RxNorm: 795464 Tablet(s) PO as directed 01/20/2017 01/28/2017 Inactive gabapentin 600 mg tablet RxNorm: 442505 1 Tablet(s) PO TID 01/21/20 17 02/22/2017 Inactive Chantix Continuing Month Box 1 mg tablet RxNorm: 847950 1 Table t(s) PO BID 12/31/2016 06/01/2017 Inactive Spiriva with HandiHaler 18 mcg and inhalation capsules RxNor m: 170552 INHALE THE ENTIRE CONTENTS OF 1 CAPSULE ONCE A DAY USING HANDIHALER 12/31/201607/2017 Inactive Synthroid 112 mcg tablet RxNorm: 782537 TAKE ONE TABLET BY MOUT H DAILY 12/30/2016 03/01/2017 Inactive metformin ER 500 mg tablet,extended release 24 hr RxNorm: 86 0975 TAKE ONE TABLET BY MOUTH DAILY 12/30/2016 03/01/2017 Inactive Premarin 0.45 mg tablet RxNorm: 072278 TAKE ONE TABLET BY MOUTH DAILY 12/30/2016 03/01/2017 Inactive omeprazole 40 mg capsule,delayed release RxNorm: 634923 TAKE ONE CAPSULE BY MOUTH DAILY 12/30/2016 01/25/2018 Inactive Ventolin HFA 90 mcg/actuation aerosol inhaler RxNorm: 487054 INHALE TWO PUFFS BY MOUTH EVERY 4 HOURS NEEDED 12/28/2016 02/13/2017 Inactive fluoxetine 40 mg capsule RxNorm: 483861 TAKE ONE CAPSULE BY BENOIT TH EVERY MORNING 12/15/2016 04/20/2017 Inactive Chantix Continuing Month Box 1 mg tablet RxNorm: 337281 TAKE ONE TABLET BY MOUTH TWICE A DAY 12/04/2016 12/31/2016 Inactive doxycycline hyclate 100 mg capsule RxNorm: 9434095 1 Capsule(s) PO BID 12/01/2016 12/07/2016 Inactive Levaquin 750 mg tablet RxNorm: 846739 1 Tablet(s) PO QD 12/01/2016 Inactive Abilify 2 mg tablet RxNorm: 893251 TAKE ONE TABLET BY MOUTH DAILY 0 11/25/2016 11/30/2016 Inactive Ventolin HFA 90 mcg/actuation aerosol inhaler RxNorm: 605046 INHALE TWO PUFFS BY MOUTH EVERY 4 HOURS NEEDED 11/02/2016 12/19/2016 Inactive Chantix Continuing Month Box 1 mg tablet RxNorm: 024102 Tablet(s) PO as directed 10/30/2016 12/03/2016 Inactive Symbicort 160 mcg-4.5 mcg/actuation HFA aerosol inhaler RxNo rm: 0518283 INHALE TWO PUFFS TWO TIMES A DAY 10/30/2016 03/30/2017 Inactive Abilify 2 mg tablet RxNorm: 661695 1 Tablet(s) PO QD 10/27/201611/24 Inactive amoxicillin 500 mg capsule RxNorm: 159473 1 Capsule(s) PO TID 10/1410/23/2016 Inactive amoxicillin 500 mg capsule RxNorm: 396709 1 Capsule(s) PO TID 10/1410/13/2016 Inactive Synthroid 112 mcg tablet RxNorm: 394649 TAKE ONE TABLET BY MOUT H DAILY 09/28/2016 12/29/2016 Inactive Topamax 100 mg tablet RxNorm: 372656 TAKE ONE TABLET BY MOUTH EVERY NIGHT AT BEDTIME 09/28/2016 01/28/2017 Inactive Premarin 0.45 mg tablet RxNorm: 762903 TAKE ONE TABLET BY MOUTH DAILY 09/28/2016 12/29/2016 Inactive metformin ER 500 mg tablet,extended release 24 hr RxNorm: 86 0975 TAKE ONE TABLET BY MOUTH DAILY 09/28/2016 12/29/2016 Inactive Ventolin HFA 90 mcg/actuation aerosol inhaler RxNorm: 690249 INHALE TWO PUFFS BY MOUTH EVERY 4 HOURS NEEDED 09/22/2016 10/23/2016 Inactive Pulmicort 1 mg/2 mL suspension for nebulization RxNorm: 6168 19 1 Unit Dose INH BID Dx: COPD (J44.9) 09/10/2016 08/16/2017 Inactive Pulmicort 1 mg/2 mL suspension for nebulization RxNorm: 6168 19 1 Unit Dose INH BID 09/10/2016 09/09/2016 Inactive Brovana 15 mcg/2 mL solution for nebulization RxNorm: 917987 1 Unit Dose INH BID Dx: COPD (J44.9) 09/10/2016 01/25/2018 Inactive Brovana 15 mcg/2 mL solution for nebulization RxNorm: 803371 1 Unit Dose INH BID 09/10/2016 09/09/2016 Inactive ipratropium-albuterol 0.5 mg-3 mg(2.5 mg base)/3 mL ne bulization soln RxNorm: 7871269 1 Unit Dose INH Q4H as needed Dx: COPD (J44.9) 09/10/2016 0 02/12/2019 Inactive orphenadrine citrate ER 100 mg tablet,extended release RxNor m: 784606 1 Tablet(s) PO BID for muscle spasm--replaces methocarbamol 09/09/2016 Inactive Chantix Continuing Month Box 1 mg tablet RxNorm: 134928 Tablet(s) PO as directed 09/09/2016 10/30/2016 Inactive orphenadrine citrate ER 100 mg tablet,extended release RxNor m: 977852 1 Tablet(s) PO BID for muscle spasm 09/09/2016 09/08/2016 Inactive Spiriva with HandiHaler 18 mcg and inhalation capsules RxNor m: 776180 INHALE THE ENTIRE CONTENTS OF 1 CAPSULE ONCE A DAY USING HANDIHALER 09/01/201605/2017 Inactive Daliresp 500 mcg tablet RxNorm: 4682897 1 Tablet(s) PO QD 08/27/2016 03/01/2017 Inactive prednisone 20 mg tablet RxNorm: 673777 3 Tablet(s) PO T ID for 3 days then 1 po BID for 3 days then one daily for 3 days 08/26/2016 04/28/2017 Inactiv e Wellbutrin XL 300 mg 24 hr tablet, extended release RxNorm: 311884 TAKE ONE TABLET BY MOUTH EVERY MORNING 07/29/2016 10/26/2016 Inactive gabapentin 600 mg tablet RxNorm: 532793 1 Tablet(s) PO BID 06/26/20 16 12/22/2016 Inactive fluoxetine 40 mg capsule RxNorm: 719901 TAKE ONE CAPSULE BY BENOIT TH EVERY MORNING 06/24/2016 11/20/2016 Inactive Duragesic 100 mcg/hr transdermal patch RxNorm: 576350 2 Application TD Q48H for pain 06/05/2016 07/04/2016 Inactive oxycodone 10 mg tablet RxNorm: 7519078 1-2 Tablet(s) PO QID as n eeded for pain 06/05/2016 03/17/2017 Inactive Belladonna-Phenobarbital 48 mg tablet,extended release RxNor m: 2 Tablet(s) PO TID 06/05/2016 01/19/2017 Inactive Premarin 0.45 mg tablet RxNorm: 859437 TAKE ONE TABLET BY MOUTH DAILY 05/27/2016 09/23/2016 Inactive Topamax 100 mg tablet RxNorm: 057125 TAKE ONE TABLET BY MOUTH EVERY NIGHT AT BEDTIME 05/27/2016 09/27/2016 Inactive Synthroid 112 mcg tablet RxNorm: 927320 TAKE ONE TABLET BY MOUT H DAILY 05/27/2016 09/23/2016 Inactive metformin ER 500 mg tablet,extended release 24 hr RxNorm: 86 0975 TAKE ONE TABLET BY MOUTH DAILY 05/27/2016 09/23/2016 Inactive Symbicort 160 mcg-4.5 mcg/actuation HFA aerosol inhaler RxNo rm: 3668584 INHALE TWO PUFFS TWO TIMES A DAY 05/27/2016 10/23/2016 Inactive Ventolin HFA 90 mcg/actuation aerosol inhaler RxNorm: 653287 INHALE TWO PUFFS BY MOUTH EVERY 4 HOURS NEEDED 05/21/2016 07/07/2016 Inactive omeprazole 40 mg capsule,delayed release RxNorm: 431820 1 Capsu le(s) PO QD 05/06/2016 08/03/2016 Inactive metformin ER 500 mg tablet,extended release 24 hr RxNorm: 86 0975 TAKE ONE TABLET BY MOUTH DAILY 04/23/2016 05/22/2016 Inactive methocarbamol 750 mg tablet RxNorm: 883442 2 Tablet(s) PO TID as needed for muscle spasm 04/23/2016 09/08/2016 Inactive Synthroid 112 mcg tablet RxNorm: 981790 TAKE ONE TABLET BY MOUT H DAILY 04/23/2016 05/22/2016 Inactive Spiriva with HandiHaler 18 mcg and inhalation capsules RxNor m: 984706 INHALE THE ENTIRE CONTENTS OF 1 CAPSULE ONCE A DAY USING HANDIHALER 04/09/201608/2016 Inactive Diflucan 100 mg tablet RxNorm: 022795 1 Tablet(s) PO QD 04/08/2016 Inactive doxycycline hyclate 100 mg capsule RxNorm: 9126781 1 Capsule(s) PO BID 04/08/2016 04/17/2016 Inactive doxycycline hyclate 100 mg capsule RxNorm: 5193760 1 Capsule(s) PO BID 04/08/2016 04/07/2016 Inactive Diflucan 100 mg tablet RxNorm: 141706 1 Tablet(s) PO QD 04/08/2016 Inactive ondansetron HCl 4 mg tablet RxNorm: 232331 1 Tablet(s) PO Q4H as needed for nausea and vomiting 04/08/2016 09/22/2017 Inactive gabapentin 600 mg tablet RxNorm: 853596 TAKE ONE TABLET BY MOUT H TWICE A DAY 03/24/2016 06/25/2016 Inactive Synthroid 112 mcg tablet RxNorm: 575663 TAKE ONE TABLET BY MOUT H DAILY 02/25/2016 04/22/2016 Inactive Levaquin 500 mg tablet RxNorm: 910934 1 Tablet(s) PO QD 01/23/2016 Inactive prednisone 20 mg tablet RxNorm: 195756 1 Tablet(s) PO T ID for 3 days then 1 po BID for 3 days then one daily for 3 days 01/23/2016 08/25/2016 Inactiv e [employer] Ultra Test strips RxNorm: TEST BLOOD SUGAR ONCE DAILY 250.00 01/09/2016 11/04/2017 Inactive methocarbamol 750 mg tablet RxNorm: 836108 2 Tablet(s) PO TID as needed for muscle spasm 01/09/2016 04/23/2016 Inactive lactulose 10 gram/15 mL oral solution RxNorm: 640907 [address](s) PO QD 01/09/2016 09/22/2017 Inactive TAKE 1 TABLESPOON BY MOUTH ONCE DAILY metformin ER 500 mg tablet,extended release 24 hr RxNorm: 86 0975 1 Tablet(s) PO QD 12/26/2015 04/22/2016 Inactive fluoxetine 20 mg capsule RxNorm: 996434 1 Capsule(s) PO QD 12/23/19 16 06/19/2016 Inactive Premarin 0.45 mg tablet RxNorm: 106662 TAKE ONE TABLET BY MOUTH DAILY 12/23/2015 05/20/2016 Inactive fluoxetine 40 mg capsule RxNorm: 826253 1 Capsule(s) PO QD 12/23/19 16 06/19/2016 Inactive TAKE ONE CAPSULE BY MOUTH EV JANKI MORNING azithromycin 500 mg tablet RxNorm: 190895 1 Tablet(s) PO QD 016 12/19/2015 Inactive Zofran 4 mg tablet RxNorm: 205130 1 Tablet(s) PO Q4H prn nausea /vomiting 12/13/2015 03/30/2018 Inactive azithromycin 500 mg tablet RxNorm: 982664 1 Tablet(s) PO QD 016 12/12/2015 Inactive Duragesic 100 mcg/hr transdermal patch RxNorm: 847972 2 Application TD Q48H for pain 12/09/2015 01/07/2016 Inactive oxycodone 10 mg tablet RxNorm: 8517736 1-2 Tablet(s) PO QID as n eeded for pain 12/09/2015 06/04/2016 Inactive Bactroban 2 % topical cream RxNorm: 390085 Application TOP BID 11/2208/25/2016 Inactive doxycycline hyclate 100 mg capsule RxNorm: 1421664 1 Capsule(s) PO BID 12/03/2015 12/12/2015 Inactive Topamax 100 mg tablet RxNorm: 466252 TAKE ONE TABLET BY MOUTH EVERY NIGHT AT BEDTIME 11/25/2015 05/22/2016 Inactive Symbicort 160 mcg-4.5 mcg/actuation HFA aerosol inhaler RxNo rm: 6303295 INHALE TWO PUFFS TWO TIMES A DAY 11/25/2015 05/22/2016 Inactive Synthroid 112 mcg tablet RxNorm: 408062 Tablet(s) TAKE ONE TABLET BY MOUTH DAILY 11/25/2015 02/22/2016 Inactive omeprazole 40 mg capsule,delayed release RxNorm: 740716 1 Capsu le(s) PO QD 11/12/2015 05/05/2016 Inactive oxycodone 10 mg tablet RxNorm: 1612593 1-2 Tablet(s) PO QID as n eeded for pain 11/05/2015 12/08/2015 Inactive Duragesic 100 mcg/hr transdermal patch RxNorm: 554654 2 Application TD Q48H for pain 11/05/2015 12/04/2015 Inactive omeprazole 40 mg capsule,delayed release RxNorm: 668845 1 Capsu le(s) PO QD 10/07/2015 11/11/2015 Inactive Januvia 100 mg tablet RxNorm: 237561 TAKE ONE TABLET BY MOUTH DAILY 09/11/2015 12/25/2015 Inactive Zithromax 500 mg tablet RxNorm: 451238 1 Tablet(s) PO QD 09/10/2015 1 Inactive prednisone 20 mg tablet RxNorm: 491172 1 Tablet(s) PO T ID for 3 days then 1 po BID for 3 days then one daily for 3 days 09/10/2015 08/25/2016 Inactiv e Wellbutrin XL 300 mg 24 hr tablet, extended release RxNorm: 986230 1 Tablet(s) PO QAM 09/10/2015 12/02/2015 Inactive Topamax 100 mg tablet RxNorm: 171676 TAKE ONE TABLET BY MOUTH EVERY NIGHT AT BEDTIME 09/02/2015 11/24/2015 Inactive Synthroid 112 mcg tablet RxNorm: 976343 TAKE ONE TABLET BY MOUT H DAILY 09/02/2015 11/25/2015 Inactive methocarbamol 750 mg tablet RxNorm: 021515 2 Tablet(s) PO TID as needed for muscle spasm 08/15/2015 01/09/2016 Inactive Wellbutrin XL 150 mg 24 hr tablet, extended release RxNorm: 126579 TAKE ONE TABLET BY MOUTH EVERY MORNING 08/13/2015 08/13/2015 Inactive gabapentin 600 mg tablet RxNorm: 655769 1 Tablet(s) PO BID 08/13/20 15 02/08/2016 Inactive Wellbutrin XL 300 mg 24 hr tablet, extended release RxNorm: 168097 1 Tablet(s) PO QAM 08/06/2015 09/09/2015 Inactive Wellbutrin XL 150 mg 24 hr tablet, extended release RxNorm: 333824 1 Tablet(s) PO QAM 07/18/2015 08/05/2015 Inactive prednisone 20 mg tablet RxNorm: 474026 1 Tablet(s) PO BID 07/18/2015 07/22/2015 Inactive doxycycline hyclate 100 mg tablet,delayed release RxNorm: 43 4018 1 Tablet(s) PO BID 07/18/2015 07/27/2015 Inactive pravastatin 40 mg tablet RxNorm: 480699 1 Tablet(s) PO QD NEEDS FASTING LAB 07/15/2015 07/14/2015 Inactive pravastatin 40 mg tablet RxNorm: 965532 1 Tablet(s) PO QD NEEDS FASTING LAB 07/15/2015 01/25/2018 Inactive Ventolin HFA 90 mcg/actuation aerosol inhaler RxNorm: 105136 2 Puff(s) INH Q4H 07/08/2015 07/07/2015 Inactive prn Premarin 0.45 mg tablet RxNorm: 240695 1 Tablet(s) PO QD 07/01/2015 0 12/22/2015 Inactive pravastatin 40 mg tablet RxNorm: 594897 1 Tablet(s) PO QD NEEDS FASTING LAB 06/14/2015 07/15/2015 Inactive Ventolin HFA 90 mcg/actuation aerosol inhaler RxNorm: 7002167 2 Puff(s) INH Q4H 06/06/2015 07/08/2015 Inactive prn albuterol sulfate 2.5 mg/3 mL (0.083 %) solution for n ebulization RxNorm: 594923 1 Unit Dose INH QID 05/30/2015 No Stop Date Active Duragesic 100 mcg/hr transdermal patch RxNorm: 333641 2 Application TD Q48H for pain 04/29/2015 05/28/2015 Inactive gabapentin 600 mg tablet RxNorm: 167703 1 Tablet(s) PO BID 04/11/20 15 08/13/2015 Inactive Onglyza 5 mg tablet RxNorm: 413532 1 Tablet(s) PO QD for blood suga r 04/10/2015 04/15/2015 Inactive [Brand Copay Card: RxBIN:[id number] PCN:CN RxGRP:[id number] ID#:[id number]] methocarbamol 750 mg tablet RxNorm: 490667 2 Tablet(s) PO TID as needed for muscle spasm 03/28/2015 08/15/2015 Inactive pravastatin 40 mg tablet RxNorm: 557552 1 Tablet(s) PO QD 03/19/2015 03/18/2015 Inactive pravastatin 40 mg tablet RxNorm: 956466 1 Tablet(s) PO QD 03/19/2015 06/14/2015 Inactive lactulose 10 gram/15 mL oral solution RxNorm: 333104 [address]s) PO QD 03/07/2015 01/09/2016 Inactive TAKE 1 TABLESPOON BY MOUTH ONCE DAILY oxycodone 20 mg tablet RxNorm: 2797498 1 Tablet(s) PO QID as nee ded for pain 03/05/2015 07/08/2015 Inactive Topamax 100 mg tablet RxNorm: 480295 1 Tablet(s) PO QHS TAKE ONE TABLET BY MOUTH AT BEDTIME 02/25/2015 02/12/2019 Inactive metformin ER 500 mg tablet,extended release 24 hr RxNorm: 86 0975 1 Tablet(s) PO QD 02/11/2015 03/04/2015 Inactive take one tablet by mouth every day Daliresp 500 mcg tablet RxNorm: 6517253 1 Tablet(s) PO QD 02/11/2015 08/09/2015 Inactive Endocet 10 mg-325 mg tablet RxNorm: 7195738 1 Tablet(s) PO Q4H as needed for pain 01/23/2015 01/23/2015 Inactive gabapentin 600 mg tablet RxNorm: 404107 1 Tablet(s) PO BID 01/23/20 15 04/11/2015 Inactive methocarbamol 750 mg tablet RxNorm: 288226 2 Tablet(s) PO TID as needed for muscle spasm 01/15/2015 02/13/2015 Inactive fluoxetine 40 mg capsule RxNorm: 290834 1 Capsule(s) PO QD 01/14/20 15 12/23/2015 Inactive TAKE ONE CAPSULE BY MOUTH EV JANKI MORNING fluoxetine 20 mg capsule RxNorm: 226116 1 Capsule(s) PO QD 01/14/20 15 12/23/2015 Inactive Premarin 0.45 mg tablet RxNorm: 150303 1 Tablet(s) PO QD 01/02/2015 0 07/01/2015 Inactive Endocet 10 mg-325 mg tablet RxNorm: 7052310 1-2 Tablet(s) PO Q4H 02/12/2019 Inactive PRN PAIN Duragesic 100 mcg/hr transdermal patch RxNorm: 604438 2 Application TD Q48H for pain 12/25/2014 01/23/2015 Inactive Topamax 100 mg tablet RxNorm: 958792 1 Tablet(s) PO QHS TAKE ONE TABLET BY MOUTH AT BEDTIME 12/25/2014 02/24/2015 Inactive Tudorza Pressair 400 mcg/actuation breath activated RxNorm: 6042000 1 BID INHALE ONE PUFF INTO LUNGS TWO TIMES A DAY 12/17/2014 05/15/2015 Inactive Endocet 10 mg-325 mg tablet RxNorm: 0662306 1-2 Tablet(s) PO Q4H 12/19/2014 Inactive PRN PAIN Duragesic 100 mcg/hr transdermal patch RxNorm: 758506 2 Application TD Q48H for pain 11/20/2014 12/24/2014 Inactive [employer] Ultra Test strips RxNorm: TEST BLOOD SUGAR ONCE DAILY 250.00 11/16/2014 01/08/2016 Inactive omeprazole 40 mg capsule,delayed release RxNorm: 320361 1 Capsu le(s) PO QD 11/13/2014 11/12/2015 Inactive metformin ER 500 mg tablet,extended release 24 hr RxNorm: 86 0975 1 Tablet(s) PO QD 11/12/2014 02/11/2015 Inactive take one tablet by mouth every day Symbicort 160 mcg-4.5 mcg/actuation HFA aerosol inhaler RxNo rm: 2938442 2 Puff(s) INH BID 11/12/2014 03/11/2015 Inactive INHALE 2 PUFFS O RALLY TWO TIMES A DAY gabapentin 800 mg tablet RxNorm: 159303 1 Tablet(s) PO QD TAKE ONE TABLET BY MOUTH ONCE A DAY 10/22/2014 01/01/2015 Inactive Endocet 10 mg-325 mg tablet RxNorm: 3875519 1-2 Tablet(s) PO Q4H 11/15/2014 Inactive PRN PAIN Duragesic 100 mcg/hr transdermal patch RxNorm: 966697 2 Application TD Q48H for pain 10/17/2014 11/19/2014 Inactive gabapentin 800 mg tablet RxNorm: 584492 1 Tablet(s) PO QD TAKE ONE TABLET BY MOUTH ONCE A DAY 10/04/2014 10/21/2014 Inactive Premarin 0.9 mg tablet RxNorm: 314430 1 Tablet(s) PO QD TAKE ONE TABLET BY MOUTH ONCE A DAY 10/04/2014 01/01/2015 Inactive Spiriva with HandiHaler 18 mcg & inhalation capsules RxNorm: 257240 1 Capsule(s) INH QD 10/03/2014 04/30/2015 Inactive Levaquin 500 mg tablet RxNorm: 670728 1 Tablet(s) PO QD 10/03/2014 Inactive prednisone 20 mg tablet RxNorm: 659407 1 Tablet(s) PO QD 10/03/2014 1 12/09/2013 Inactive Duragesic 100 mcg/hr transdermal patch RxNorm: 325252 2 Application TD Q48H for pain 09/18/2014 10/16/2014 Inactive Endocet 10 mg-325 mg tablet RxNorm: 6188849 1-2 Tablet(s) PO Q4H 10/16/2014 Inactive PRN PAIN Synthroid 112 mcg tablet RxNorm: 195349 1 Tablet(s) QD 09/10/2014 Inactive Synthroid 112 mcg tablet RxNorm: 518620 TAKE ONE TABLET BY MOUTH ONE TIME A DAY. NEEDS LABS 09/10/2014 02/06/2015 Inactive omeprazole 40 mg capsule,delayed release RxNorm: 716085 1 Capsu le(s) PO QD 09/03/2014 11/13/2014 Inactive omeprazole 40 mg capsule,delayed release RxNorm: 703848 1 Capsu le(s) PO QD 09/03/2014 09/02/2014 Inactive Spiriva with HandiHaler 18 mcg & inhalation capsules RxNorm: 697709 1 Capsule(s) INH QD 08/27/2014 10/02/2014 Inactive gabapentin 600 mg tablet RxNorm: 228594 1 Tablet(s) PO BID 08/27/20 14 10/22/2014 Inactive Endocet 10 mg-325 mg tablet RxNorm: 7684930 1-2 Tablet(s) PO Q4H 09/17/2014 Inactive PRN PAIN fentanyl 100 mcg/hr transdermal patch RxNorm: 689796 1 Unit Dos e TD QD 08/21/2014 09/19/2014 Inactive Daliresp 500 mcg tablet RxNorm: 4999345 1 Tablet(s) PO QD 08/13/2014 02/11/2015 Inactive Synthroid 112 mcg tablet RxNorm: 793937 TAKE ONE TABLET BY MOUTH ONE TIME A DAY. NEEDS LABS 08/10/2014 09/10/2014 Inactive Endocet 10 mg-325 mg tablet RxNorm: 9531405 1-2 Tablet(s) PO Q4H 08/17/2014 Inactive PRN PAIN Duragesic 100 mcg/hr transdermal patch RxNorm: 025893 2 Application TD Q48H for pain 07/19/2014 09/17/2014 Inactive fluoxetine 40 mg capsule RxNorm: 212900 1 Capsule(s) PO QD 07/17/20 14 01/14/2015 Inactive TAKE ONE CAPSULE BY MOUTH EV JANKI MORNING fluoxetine 20 mg capsule RxNorm: 055526 1 Capsule(s) PO QD 07/17/20 14 01/14/2015 Inactive Spiriva with HandiHaler 18 mcg & inhalation capsules RxNorm: 077053 1 Capsule(s) INH QD 07/17/2014 08/26/2014 Inactive INHALE CONTENTS OF 1 CAPSULE(S) WITH HANDIHALER ONCE DAILY Zofran 4 mg tablet RxNorm: 429647 1 Tablet(s) PO Q4H prn nausea 07/25/2014 Inactive Synthroid 112 mcg tablet RxNorm: 125377 1 Tablet(s) PO QD 07/09/2014 07/09/2014 Inactive methocarbamol 750 mg tablet RxNorm: 378396 2 Tablet(s) PO TID as needed for muscle spasm 07/09/2014 09/06/2014 Inactive Synthroid 112 mcg tablet RxNorm: 454634 1 Tablet(s) PO QD - serena labs 07/09/2014 08/07/2014 Inactive Medrol (Aníbal) 4 mg tablets in a dose pack RxNorm: 188284 6 Tablet(s) PO QD --then as directed 07/03/2014 07/08/2014 Inactive Tudorza Pressair 400 mcg/actuation breath activated RxNorm: 2622521 1 Puff(s) INH BID 07/03/2014 12/17/2014 Inactive cefdinir 300 mg capsule RxNorm: 881192 1 Capsule(s) PO BID 07/03/20 14 07/12/2014 Inactive Topamax 100 mg tablet RxNorm: 387506 Tablet(s) TAKE ONE TABLET BY MOUTH AT BEDTIME 07/02/2014 02/25/2015 Inactive Duragesic 100 mcg/hr transdermal patch RxNorm: 799519 2 Application TD Q48H for pain 06/25/2014 07/18/2014 Inactive Endocet 10 mg-325 mg tablet RxNorm: 0287385 1-2 Tablet(s) PO Q4H 07/18/2014 Inactive PRN PAIN metformin ER 500 mg tablet,extended release 24 hr RxNorm: 86 0975 1 Tablet(s) PO QD Needs labs 06/18/2014 07/01/2014 Inactive take one tablet by mouth every day Duragesic 100 mcg/hr transdermal patch RxNorm: 757796 2 Application TD Q48H for pain 05/22/2014 06/24/2014 Inactive Synthroid 112 mcg tablet RxNorm: 685817 1 Tablet(s) PO QD 05/22/2014 07/09/2014 Inactive Endocet 10 mg-325 mg tablet RxNorm: 3071205 1-2 Tablet(s) PO Q4H 06/20/2014 Inactive PRN PAIN Endocet 10 mg-325 mg tablet RxNorm: 4727693 1-2 Tablet(s) PO Q4H 05/21/2014 Inactive PRN PAIN Duragesic 100 mcg/hr transdermal patch RxNorm: 357753 2 Application TD Q48H for pain 04/25/2014 05/21/2014 Inactive Daliresp 500 mcg tablet RxNorm: 8053426 1 Tablet(s) PO QD 04/24/2014 08/13/2014 Inactive Symbicort 160 mcg-4.5 mcg/actuation HFA aerosol inhaler RxNo rm: 6684178 2 Puff(s) INH BID 04/24/2014 08/21/2014 Inactive INHALE 2 PUFFS O RALLY TWO TIMES A DAY metformin ER 500 mg tablet,extended release 24 hr RxNorm: 86 0975 1 Tablet(s) PO QD 04/24/2014 11/12/2014 Inactive TAKE ONE TABLET BY MOUTH EVERY DAY [AttnRPh:Saving Apply/Adjudicate RxGRP:LDMGRP RxBIN:[id number] RxPCN:2012 PCode:01 ID#:[id number]] Symbicort 160 mcg-4.5 mcg/actuation HFA aerosol inhaler RxNo rm: 9237514 2 Puff(s) INH BID 04/24/2014 11/12/2014 Inactive INHALE 2 PUFFS O RALLY TWO TIMES A DAY Premarin 0.9 mg tablet RxNorm: 219800 1 Tablet(s) PO QD 04/24/2014 Inactive TAKE ONE TABLET BY MOUTH EVERY DAY metformin ER 500 mg tablet,extended release 24 hr RxNorm: 86 0975 1 Tablet(s) PO QD Needs labs 04/24/2014 06/18/2014 Inactive TAKE ONE TABLET BY MOUTH EVERY DAY [AttnRPh:Saving Apply/Adjudicate RxGRP:LDMGRP RxBIN:[id number] RxPCN:2012 PCode:01 ID#:[id number]] gabapentin 800 mg tablet RxNorm: 755835 1 Tablet(s) PO QD 04/24/2014 10/04/2014 Inactive TAKE ONE TABLET BY MOUTH EVERY DAY Topamax 100 mg tablet RxNorm: 324165 1 Tablet(s) PO QHS 04/17/2014 Inactive Topamax 100 mg tablet RxNorm: 776956 TAKE ONE TABLET BY MOUTH A T BEDTIME 04/17/2014 07/01/2014 Inactive Tudorza Pressair 400 mcg/actuation breath activated RxNorm: 5055491 1 Puff(s) INH BID 04/11/2014 07/02/2014 Inactive Duragesic 100 mcg/hr transdermal patch RxNorm: 112385 2 Application TD Q48H for pain 03/27/2014 04/24/2014 Inactive Endocet 10 mg-325 mg tablet RxNorm: 1756359 1-2 Tablet(s) PO Q4H 04/24/2014 Inactive PRN PAIN Robaxin 750 mg tablet RxNorm: 806183 2 Tablet(s) PO TID as need ed for spasm 02/23/2014 03/28/2015 Inactive Duragesic 100 mcg/hr transdermal patch RxNorm: 662113 2 Application TD Q48H for pain 02/23/2014 No Stop Date Active Endocet 10 mg-325 mg tablet RxNorm: 3263435 1-2 Tablet(s) PO Q4H 03/23/2014 Inactive PRN PAIN Synthroid 112 mcg tablet RxNorm: 316769 1 Tablet(s) PO QD TAKE ONE TABLET BY MOUTH EVERY DAY 02/15/2014 05/22/2014 Inactive Zithromax 500 mg tablet RxNorm: 854549 1 Tablet(s) PO QD 01/30/2014 0 02/05/2014 Inactive Diflucan 100 mg tablet RxNorm: 922649 1 Tablet(s) PO QD 01/30/2014 Inactive prednisone 20 mg tablet RxNorm: 516152 1 Tablet(s) PO BID 01/30/2014 02/05/2014 Inactive fluoxetine 40 mg capsule RxNorm: 236457 1 Capsule(s) PO QD 01/23/20 14 07/16/2014 Inactive TAKE ONE CAPSULE BY MOUTH EV JANKI MORNING fluoxetine 40 mg capsule RxNorm: 044090 1 Capsule(s) PO QD 01/23/20 14 07/17/2014 Inactive TAKE ONE CAPSULE BY MOUTH EV JANKI MORNING cefdinir 300 mg capsule RxNorm: 759119 1 Capsule(s) PO BID 01/16/20 14 01/29/2014 Inactive Zithromax 500 mg tablet RxNorm: 973837 1 Tablet(s) PO QD 01/16/2014 0 01/22/2014 Inactive prednisone 20 mg tablet RxNorm: 374187 1 Tablet(s) PO BID 01/16/2014 01/22/2014 Inactive Spiriva with HandiHaler 18 mcg and inhalation capsules RxNor m: 073776 1 Capsule(s) INH QD 12/18/2013 07/17/2014 Inactive INHALE CONTENT S OF 1 CAPSULE(S) WITH HANDIHALER ONCE DAILY fluoxetine 20 mg capsule RxNorm: 334355 1 Capsule(s) PO QD 12/18/19 14 06/15/2014 Inactive Spiriva with HandiHaler 18 mcg & inhalation capsules RxNorm: 354917 1 Capsule(s) INH QD 12/18/2013 06/15/2014 Inactive INHALE CONTENTS OF 1 CAPSULE(S) WITH HANDIHALER ONCE DAILY fluoxetine 20 mg capsule RxNorm: 814117 1 Capsule(s) PO QD 12/18/19 14 07/17/2014 Inactive cefdinir 300 mg capsule RxNorm: 059904 2 Capsule(s) PO QD 12/12/2013 12/21/2013 Inactive Duragesic 100 mcg/hr transdermal patch RxNorm: 217404 2 Application TD Q48H for pain 12/08/2013 12/07/2013 Inactive Topamax 100 mg tablet RxNorm: 544473 1 Tablet(s) PO QHS 12/04/2013 Inactive Endocet 10 mg-325 mg tablet RxNorm: 3324929 1-2 Tablet(s) PO Q4H 12/26/2013 Inactive PRN PAIN Robaxin 750 mg tablet RxNorm: 181108 2 Tablet(s) PO TID as need ed for spasm 11/07/2013 01/05/2014 Inactive gabapentin 800 mg tablet RxNorm: 324339 1 Tablet(s) PO QD 10/16/2013 04/24/2014 Inactive TAKE ONE TABLET BY MOUTH EVERY DAY Symbicort 160 mcg-4.5 mcg/actuation HFA aerosol inhaler RxNo rm: 8444851 2 Puff(s) INH BID 10/16/2013 04/24/2014 Inactive INHALE 2 PUFFS O RALLY TWO TIMES A DAY Premarin 0.9 mg tablet RxNorm: 888469 1 Tablet(s) PO QD 10/16/2013 Inactive TAKE ONE TABLET BY MOUTH EVERY DAY metformin ER 500 mg tablet,extended release 24 hr RxNorm: 86 0975 1 Tablet(s) PO QD 10/16/2013 04/24/2014 Inactive TAKE ONE TABLET BY MOUTH EVERY DAY Daliresp 500 mcg tablet RxNorm: 7551397 1 Tablet(s) PO QD 10/16/2013 04/24/2014 Inactive Robaxin 750 mg tablet RxNorm: 529210 2 Tablet(s) PO TID as need ed for spasm 10/10/2013 11/06/2013 Inactive Duragesic 100 mcg/hr transdermal patch RxNorm: 179670 2 Application TD Q48H for pain 10/09/2013 No Stop Date Active Soma 350 mg tablet RxNorm: 022260 1 Tablet(s) PO TID 09/27/201310/09 Inactive TAKE ONE TABLET BY MOUTH THREE TIMES A D AY lactulose 10 gram/15 mL oral solution RxNorm: 065310 [address](s) PO QD 09/13/2013 03/07/2015 Inactive TAKE 1 TABLESPOON BY MOUTH ONCE DAILY Duragesic 100 mcg/hr transdermal patch RxNorm: 625221 2 Application TD Q48H for pain 09/06/2013 No Stop Date Active Endocet 10 mg-325 mg tablet RxNorm: 2138912 1-2 Tablet(s) PO Q4H 09/27/2013 Inactive PRN PAIN lancets 28 gauge RxNorm: Miscellaneous As needed for blo od glucose sticks 08/24/2013 No Stop Date Active 16.2 mg-0.1037 mg-0.0194 mg tablet RxNorm: 4161978 Tablet(s) PO PRN for gas and cramping 08/24/2013 01/19/2017 Inactive TAKE TWO TABLET S BY MOUTH THREE TIMES A DAY NEEDED FOR GAS AND CRAMPING Topamax 100 mg tablet RxNorm: 048292 1 Tablet(s) PO QHS 07/31/2013 Inactive Diflucan 100 mg tablet RxNorm: 385229 1 Tablet(s) PO QD 07/27/2013 Inactive cefdinir 300 mg capsule RxNorm: 512065 1 Capsule(s) PO BID 07/26/20 13 08/08/2013 Inactive Daliresp 500 mcg tablet RxNorm: 5463714 1 Tablet(s) PO QD 07/25/2013 10/15/2013 Inactive fluoxetine 40 mg capsule RxNorm: 207287 1 Capsule(s) PO QD 07/25/20 13 01/22/2014 Inactive TAKE ONE CAPSULE BY MOUTH EV JANKI MORNING Senokot-S 8.6 mg-50 mg tablet RxNorm: 1636569 1 Tablet(s) PO BID 10/25/2013 Inactive doxycycline hyclate 100 mg capsule RxNorm: 4584464 1 Capsule(s) PO BID 06/28/2013 07/07/2013 Inactive prednisone 20 mg tablet RxNorm: 910859 1 Tablet(s) PO BID 06/28/2013 07/04/2013 Inactive Zofran 4 mg tablet RxNorm: 549970 1 Tablet(s) PO Q4H prn nausea 03/201307/05/2013 Inactive Spiriva with HandiHaler 18 mcg & inhalation capsules RxNorm: 795668 1 Capsule(s) INH QD 06/26/2013 12/18/2013 Inactive INHALE CONTENTS OF 1 CAPSULE(S) WITH HANDIHALER ONCE DAILY Synthroid 112 mcg tablet RxNorm: 059876 1 Tablet(s) PO QD TAKE ONE TABLET BY MOUTH EVERY DAY 06/19/2013 02/15/2014 Inactive fluoxetine 20 mg capsule RxNorm: 754516 1 Capsule(s) PO QD 06/19/20 13 12/18/2013 Inactive Ventolin HFA 90 mcg/actuation Aerosol Inhaler RxNorm: 9429701 2 Puff(s) INH Q4H 06/05/2013 No Stop Date Active prn Soma 350 mg tablet RxNorm: 779965 1 Tablet(s) PO TID 06/05/201307/04 Inactive TAKE ONE TABLET BY MOUTH THREE TIMES A D AY prednisone 20 mg tablet RxNorm: 337416 1 Tablet(s) PO QD 05/31/2013 0 06/06/2013 Inactive Topamax 100 mg tablet RxNorm: 246792 1 Tablet(s) PO QHS 05/22/2013 Inactive Levaquin 500 mg tablet RxNorm: 467122 1 Tablet(s) PO QD 05/03/2013 Inactive Diflucan 100 mg tablet RxNorm: 112781 1 Tablet(s) PO QD 05/03/2013 Inactive Daliresp 500 mcg tablet RxNorm: 2204050 1 Tablet(s) PO QD 05/01/2013 07/24/2013 Inactive Daliresp 500 mcg tablet RxNorm: 9529863 1 Tablet(s) PO QD 05/01/2013 04/30/2013 Inactive gabapentin 800 mg tablet RxNorm: 244362 1 Tablet(s) PO QD 04/10/2013 10/06/2013 Inactive TAKE ONE TABLET BY MOUTH EVERY DAY metformin ER 500 mg tablet,extended release 24 hr RxNorm: 86 0977 1 Tablet(s) PO QD 04/10/2013 10/06/2013 Inactive TAKE ONE TABLET BY MOUTH EVERY DAY Premarin 0.9 mg tablet RxNorm: 324163 1 Tablet(s) PO QD 04/10/2013 Inactive TAKE ONE TABLET BY MOUTH EVERY DAY Symbicort 160 mcg-4.5 mcg/actuation HFA aerosol inhaler RxNo rm: 2792075 2 Puff(s) INH BID 04/10/2013 10/06/2013 Inactive INHALE 2 PUFFS O RALLY TWO TIMES A DAY Synthroid 112 mcg tablet RxNorm: 064574 1 Tablet(s) PO QD TAKE ONE TABLET BY MOUTH EVERY DAY 04/10/2013 06/18/2013 Inactive Ventolin HFA 90 mcg/actuation Aerosol Inhaler RxNorm: 6808246 2 Puff(s) INH Q4H 04/10/2013 No Stop Date Active prn fentanyl 100 mcg/hr transdermal patch RxNorm: 114341 1 Unit Dos e TD QD 04/03/2013 05/02/2013 Inactive Endocet 10 mg-325 mg tablet RxNorm: 3394333 1-2 Tablet(s) PO Q4H 05/02/2013 Inactive PRN PAIN Topamax 100 mg tablet RxNorm: 049848 1 Tablet(s) PO QHS 03/13/2013 Inactive Reglan 10 mg tablet RxNorm: 005755 1 Tablet(s) PO QID b efore meals and at bedtime 03/13/2013 04/09/2015 Inactive fluoxetine 20 mg capsule RxNorm: 500891 1 Capsule(s) PO QD 02/28/20 13 05/27/2013 Inactive Ventolin HFA 90 mcg/actuation Aerosol Inhaler RxNorm: 5918353 2 Puff(s) INH Q4H 02/13/2013 No Stop Date Active prn fluoxetine 40 mg capsule RxNorm: 002113 1 Capsule(s) PO QD 01/31/20 13 07/24/2013 Inactive TAKE ONE CAPSULE BY MOUTH EV JANKI MORNING Soma 350 mg tablet RxNorm: 815686 1 Tablet(s) PO TID 01/20/201302/18 Inactive TAKE ONE TABLET BY MOUTH THREE TIMES A D AY Endocet 10 mg-325 mg tablet RxNorm: 8445635 1-2 Tablet(s) PO Q4H 02/06/2013 Inactive PRN PAIN MS Contin 200 mg tablet,extended release RxNorm: 645237 1 Table t(s) PO BID 01/18/2013 02/06/2013 Inactive Ventolin HFA 90 mcg/actuation Aerosol Inhaler RxNorm: 0417577 2 Puff(s) INH Q4H 01/04/2013 No Stop Date Active prn Spiriva with HandiHaler 18 mcg & inhalation capsules RxNorm: 646443 1 Capsule(s) INH QD 12/29/2012 06/25/2013 Inactive INHALE CONTENTS OF 1 CAPSULE(S) WITH HANDIHALER ONCE DAILY Spiriva with HandiHaler 18 mcg & inhalation capsules RxNorm: 740566 1 Capsule(s) INH QD 12/26/2012 12/28/2012 Inactive INHALE CONTENTS OF 1 CAPSULE(S) WITH HANDIHALER ONCE DAILY Synthroid 112 mcg tablet RxNorm: 458672 Tablet(s) PO TA KE ONE TABLET BY MOUTH EVERY DAY 12/26/2012 04/09/2013 Inactive Endocet 10 mg-325 mg tablet RxNorm: 3511555 1-2 Tablet(s) PO Q4H 01/17/2013 Inactive PRN PAIN MS Contin 200 mg tablet,extended release RxNorm: 313430 1 Table t(s) PO BID 12/21/2012 01/17/2013 Inactive fluoxetine 20 mg capsule RxNorm: 663223 1 Capsule(s) PO QD 12/06/1902/26/2013 Inactive Synthroid 112 mcg tablet RxNorm: 154017 1 Tablet(s) PO QD 12/06/2012 02/12/2019 Inactive TAKE ONE TABLET BY MOUTH EVERY DAY Ventolin HFA 90 mcg/actuation Aerosol Inhaler RxNorm: 3166108 2 Puff(s) INH Q4H 12/06/2012 No Stop Date Active prn Reglan 10 mg tablet RxNorm: 315678 1 Tablet(s) PO QID b efore meals and at bedtime 11/24/2012 03/12/2013 Inactive Topamax 100 mg tablet RxNorm: 633104 1 Tablet(s) PO QHS 11/16/2012 Inactive Ventolin HFA 90 mcg/actuation Aerosol Inhaler RxNorm: 6780151 2 Puff(s) INH Q4H 11/09/2012 No Stop Date Active prn gabapentin 800 mg tablet RxNorm: 477819 1 Tablet(s) PO QD 10/27/2012 04/09/2013 Inactive TAKE ONE TABLET BY MOUTH EVERY DAY metformin ER 500 mg tablet,extended release 24 hr RxNorm: 86 0977 1 Tablet(s) PO QD 10/27/2012 04/09/2013 Inactive TAKE ONE TABLET BY MOUTH EVERY DAY Symbicort 160 mcg-4.5 mcg/actuation HFA Aerosol Inhaler RxNo rm: 6310897 2 Puff(s) INH BID 10/27/2012 04/09/2013 Inactive INHALE 2 PUFFS O RALLY TWO TIMES A DAY Premarin 0.9 mg tablet RxNorm: 864523 1 Tablet(s) PO QD 10/27/2012 Inactive TAKE ONE TABLET BY MOUTH EVERY DAY Endocet 10 mg-325 mg tablet RxNorm: 0822120 1-2 Tablet(s) PO Q4H 11/24/2012 Inactive PRN PAIN MS Contin 200 mg tablet,extended release RxNorm: 684152 1 Table t(s) PO BID 10/26/2012 11/24/2012 Inactive Soma 350 mg tablet RxNorm: 003501 1 Tablet(s) PO TID 10/04/201211/02 Inactive TAKE ONE TABLET BY MOUTH THREE TIMES A D AY Ventolin HFA 90 mcg/actuation Aerosol Inhaler RxNorm: 8860157 2 Puff(s) INH Q4H 10/03/2012 No Stop Date Active prn Daliresp 500 mcg tablet RxNorm: 2186633 1 Tablet(s) PO QD 09/28/2012 09/27/2012 Inactive Daliresp 500 mcg tablet RxNorm: 6312271 1 Tablet(s) PO QD 09/28/2012 04/25/2013 Inactive fluoxetine 20 mg capsule RxNorm: 961984 1 Capsule(s) PO QD 09/05/2012/06/2012 Inactive Topamax 50 mg tablet RxNorm: 696234 Tablet(s) PO for 1w k then 1 po q HS for 1wk then 2 po q HS 08/29/2012 09/27/2012 Inactive TAKE 1/2 TABLET BY MOUTH AT BEDTIME FOR 1 WEEK, THEN 1 TABLET AT BEDTIME FOR 1 WEEK, THEN 2 TABLETS AT BEDTIME Topamax 100 mg tablet RxNorm: 838602 1 Tablet(s) PO QHS 08/29/2012 Inactive Ventolin HFA 90 mcg/actuation Aerosol Inhaler RxNorm: 1040563 2 Puff(s) INH Q4H 08/19/2012 No Stop Date Active prn Ventolin HFA 90 mcg/actuation Aerosol Inhaler RxNorm: 7809854 2 Puff(s) INH Q4H 08/15/2012 No Stop Date Active prn Synthroid 112 mcg tablet RxNorm: 066635 1 Tablet(s) PO QD 08/10/2012 11/07/2012 Inactive TAKE ONE TABLET BY MOUTH EVERY DAY Synthroid 112 mcg tablet RxNorm: 975025 1 Tablet(s) PO QD 08/01/2012 08/09/2012 Inactive TAKE ONE TABLET BY MOUTH EVERY DAY Reglan 10 mg tablet RxNorm: 325691 1 Tablet(s) PO QID b efore meals and at bedtime 08/01/2012 11/23/2012 Inactive fluoxetine 40 mg capsule RxNorm: 299572 1 Capsule(s) PO QD 08/01/2001/27/2013 Inactive TAKE ONE CAPSULE BY MOUTH EV JANKI MORNING Ventolin HFA 90 mcg/actuation Aerosol Inhaler RxNorm: 7077730 2 Puff(s) INH Q4H 08/01/2012 No Stop Date Active prn Soma 350 mg tablet RxNorm: 493888 1 Tablet(s) PO TID 07/20/201208/18 Inactive TAKE ONE TABLET BY MOUTH THREE TIMES A D AY Spiriva with HandiHaler 18 mcg & inhalation capsules RxNorm: 848988 1 Capsule(s) INH 07/01/2012 12/25/2012 Inactive INHALE CONTENTS OF 1 CAPSULE(S) WITH HANDIHALER ONCE DAILY Zithromax 250 mg Tab RxNorm: 530711 2 Tablet(s) PO QD 06/28/201206/22 Inactive MS Contin 200 mg tablet,extended release RxNorm: 410379 1 Table t(s) PO BID 06/28/2012 07/27/2012 Inactive Endocet 10 mg-325 mg tablet RxNorm: 8056740 1-2 Tablet(s) PO Q4H 07/27/2012 Inactive PRN PAIN Topamax 100 mg tablet RxNorm: 607257 1 Tablet(s) PO QHS 06/28/2012 Inactive 16.2 mg-0.1037 mg-0.0194 mg tablet RxNorm: 5188212 Tablet(s) PO PRN for gas and cramping 06/08/2012 08/23/2013 Inactive TAKE TWO TABLET S BY MOUTH THREE TIMES A DAY NEEDED FOR GAS AND CRAMPING Ventolin HFA 90 mcg/actuation Aerosol Inhaler RxNorm: 4880077 2 Puff(s) INH Q4H 05/23/2012 No Stop Date Active prn Ventolin HFA 90 mcg/actuation Aerosol Inhaler RxNorm: 1373772 2 Puff(s) INH Q4H 05/11/2012 No Stop Date Active prn Synthroid 112 mcg tablet RxNorm: 545795 1 Tablet(s) PO QD 05/09/2012 07/31/2012 Inactive TAKE ONE TABLET BY MOUTH EVERY DAY gabapentin 800 mg tablet RxNorm: 396727 1 Tablet(s) PO QD 05/09/2012 10/26/2012 Inactive TAKE ONE TABLET BY MOUTH EVERY DAY fluoxetine 40 mg capsule RxNorm: 857561 1 Capsule(s) PO QD 05/09/2007/31/2012 Inactive TAKE ONE CAPSULE BY MOUTH EV JANKI MORNING metformin ER 500 mg tablet,extended release 24 hr RxNorm: 86 0977 1 Tablet(s) PO QD 05/09/2012 10/26/2012 Inactive TAKE ONE TABLET BY MOUTH EVERY DAY Premarin 0.9 mg tablet RxNorm: 237297 1 Tablet(s) PO QD 05/09/2012 Inactive TAKE ONE TABLET BY MOUTH EVERY DAY Symbicort 160 mcg-4.5 mcg/actuation HFA Aerosol Inhaler RxNo rm: 3230934 2 Puff(s) INH BID 05/09/2012 10/26/2012 Inactive INHALE 2 PUFFS O RALLY TWO TIMES A DAY Endocet 10 mg-325 mg Tab RxNorm: 8048010 1-2 Tablet(s) PO Q4H 04/2705/26/2012 Inactive PRN PAIN MS Contin 200 mg Tab RxNorm: 900375 1 Tablet(s) PO BID 04/26/201202/2012 Inactive Ventolin HFA 90 mcg/actuation Aerosol Inhaler RxNorm: 1306451 2 Puff(s) INH Q4H 04/25/2012 05/10/2012 Inactive prn Soma 350 mg tablet RxNorm: 276202 2 Tablet(s) PO TID 04/19/201207/19 Inactive TAKE ONE TABLET BY MOUTH THREE TIMES A D AY Ventolin HFA 90 mcg/actuation Aerosol Inhaler RxNorm: 7025453 2 Puff(s) INH Q4H 04/12/2012 04/24/2012 Inactive prn Reglan 10 mg tablet RxNorm: 703839 1 Tablet(s) PO QID b efore meals and at bedtime 04/11/2012 07/31/2012 Inactive MS Contin 200 mg Tab RxNorm: 168829 1 Tablet(s) PO BID 03/30/201202/2012 Inactive Endocet 10 mg-325 mg Tab RxNorm: 9211633 1-2 Tablet(s) PO Q4H 03/3004/26/2012 Inactive PRN PAIN MS Contin 200 mg Tab RxNorm: 893700 1 Tablet(s) PO BID 03/02/201206/2012 Inactive Endocet 10 mg-325 mg Tab RxNorm: 8124422 1-2 Tablet(s) PO Q4H 03/0203/29/2012 Inactive PRN PAIN Daliresp 500 mcg tablet RxNorm: 1521002 1 Tablet(s) PO QD 03/01/2012 09/28/2012 Inactive MS Contin 200 mg Tab RxNorm: 048335 1 Tablet(s) PO BID 02/02/201208/2012 Inactive Endocet 10 mg-325 mg Tab RxNorm: 0614883 1-2 Tablet(s) PO Q4H 02/0103/01/2012 Inactive PRN PAIN fluoxetine 40 mg capsule RxNorm: 481430 1 Capsule(s) PO QD 02/02/2008/01/2012 Inactive TAKE ONE CAPSULE BY MOUTH EV JANKI MORNING Synthroid 112 mcg Tab RxNorm: 634152 1 Tablet(s) PO QD 01/18/2012 Inactive TAKE ONE TABLET BY MOUTH EVERY DAY lactulose 10 gram/15 mL oral solution RxNorm: 919980 [address]s) PO QD 01/18/2012 No Stop Date Active TAKE 1 TABLESPOON BY MOUTH ONCE DAILY Ventolin HFA 90 mcg/actuation Aerosol Inhaler RxNorm: 8723892 2 Puff(s) INH Q4H 01/18/2012 04/11/2012 Inactive prn MS Contin 200 mg Tab RxNorm: 231944 1 Tablet(s) PO BID 01/05/201210/2012 Inactive Endocet 10 mg-325 mg Tab RxNorm: 8322595 1-2 Tablet(s) PO Q4H 01/0502/01/2012 Inactive PRN PAIN ProAir HFA 90 mcg/Actuation Aerosol Inhaler RxNorm: 9777471 2 Pu ff(s) INH Q4H 12/21/2011 No Stop Date Active prn for wheezing or shortness of breath Spiriva with HandiHaler 18 mcg & inhalation Caps RxNorm: 580 261 1 Capsule(s) INH 12/21/2011 06/30/2012 Inactive INHALE CONTENTS OF 1 CAPSULE(S) WITH HANDIHALER ONCE DAILY Reglan 10 mg Tab RxNorm: 153454 1 Tablet(s) PO QID before meals and at bedtime 12/21/2011 04/10/2012 Inactive Synthroid 112 mcg Tab RxNorm: 211607 1 Tablet(s) PO QD 12/21/2011 Inactive TAKE ONE TABLET BY MOUTH EVERY DAY Endocet 10 mg-325 mg Tab RxNorm: 6487048 1-2 Tablet(s) PO Q4H 11/2512/24/2011 Inactive PRN PAIN MS Contin 200 mg Tab RxNorm: 677904 1 Tablet(s) PO BID 11/25/201112/2011 Inactive lactulose 10 gram/15 mL Oral Soln RxNorm: 659948 Milliliter(s) PO 1 No Stop Date Active TAKE 1 TABLESPOON BY MOUTH O NCE DAILY lactulose 10 gram/15 mL Oral Soln RxNorm: 324633 Milliliter(s) PO 1 12/12/2010 11/20/2011 Inactive TAKE 1 TABLESPOON BY MOUTH O NCE DAILY Premarin 0.9 mg Tab RxNorm: 257636 1 Tablet(s) PO QD 10/12/201105/08 Inactive TAKE ONE TABLET BY MOUTH EVERY DAY fluoxetine 20 mg capsule RxNorm: 221905 1 Capsule(s) PO QD 10/12/2009/05/2012 Inactive TAKE ONE CAPSULE BY MOUTH EV JANKI DAY Synthroid 112 mcg Tab RxNorm: 333630 1 Tablet(s) PO QD 10/12/2011 Inactive TAKE ONE TABLET BY MOUTH EVERY DAY metformin ER 500 mg 24 hr Tab RxNorm: 106758 1 Tablet(s) PO QD 09/2311/10/2011 Inactive TAKE ONE TABLET BY MOUTH GLYNN RY DAY Synthroid 112 mcg Tab RxNorm: 582851 1 Tablet(s) PO QD 10/12/2011 Inactive TAKE ONE TABLET BY MOUTH EVERY DAY metformin ER 500 mg 24 hr Tab RxNorm: 461957 1 Tablet(s) PO QD 09/2310/11/2011 Inactive TAKE ONE TABLET BY MOUTH GLYNN RY DAY Prevacid 30 mg Cap RxNorm: 025038 Capsule(s) PO 10/12/2011 01/25/2012 Inactive TAKE ONE CAPSULE BY MOUTH EVERY DAY Symbicort 160 mcg-4.5 mcg/actuation HFA Aerosol Inhaler RxNo rm: 1513790 2 Puff(s) INH BID 10/12/2011 05/08/2012 Inactive INHALE 2 PUFFS O RALLY TWO TIMES A DAY gabapentin 800 mg Tab RxNorm: 931090 1 Tablet(s) PO QD 10/12/2011 Inactive TAKE ONE TABLET BY MOUTH EVERY DAY MS Contin 200 mg Tab RxNorm: 216939 1 Tablet(s) PO BID 09/23/201111/2010 Inactive Endocet 10 mg-325 mg Tab RxNorm: 4953246 1-2 Tablet(s) PO Q4H 09/2310/22/2011 Inactive PRN PAIN Endocet 10 mg-325 mg Tab RxNorm: 0258867 1-2 Tablet(s) PO Q4H 08/2109/19/2011 Inactive PRN PAIN MS Contin 200 mg Tab RxNorm: 273571 1 Tablet(s) PO BID 08/21/2011 Inactive Diflucan 100 mg Tab RxNorm: 283814 1 Tablet(s) PO QD 08/10/201108/16 Inactive cefdinir 300 mg Cap RxNorm: 029163 2 Capsule(s) PO QD 08/10/201107/24 Inactive Reglan 10 mg Tab RxNorm: 572125 1 Tablet(s) PO AC & HS 07/15/2011 Inactive Endocet 10 mg-325 mg Tab RxNorm: 5423314 1-2 Tablet(s) PO Q4H 07/1508/13/2011 Inactive PRN PAIN One Touch Ultra Test strips RxNorm: Miscellaneous BID 06/11/201101/16/2014 Inactive TEST TWO TIMES A DAY lactulose 10 gram/15 mL Oral Soln RxNorm: 229579 Milliliter(s) PO 0 06/10/2011 10/11/2011 Inactive TAKE 1 TABLESPOON BY MOUTH O NCE DAILY Chantix Continuing Month Aníbal 1 mg Tab RxNorm: 307188 Tablet(s) PO 0 06/10/2011 11/02/2011 Inactive TAKE DIRECTED - PER PACK[employer] GE INSTRUCTIONS fluoxetine 40 mg Cap RxNorm: 300521 Capsule(s) PO 06/10/2011 02/02/20 12 Inactive TAKE ONE CAPSULE BY MOUTH EVERY MORNING Chantix Continuing Month Aníbal 1 mg Tab RxNorm: 262863 Ta blet(s) PO TAKE DIRECTED - PER PACKAGE INSTRUCTIONS 05/13/2011 06/09/2011 Inactive Soma 350 mg Tab RxNorm: 207087 Tablet(s) PO TAKE ON E TABLET BY MOUTH THREE TIMES A DAY 05/13/2011 04/18/2012 Inactive Chantix Continuing Month Aníbal 1 mg Tab RxNorm: 464535 Ta blet(s) PO as directed per package instructions. 04/22/2011 05/12/2011 Inactive Symbicort 160 mcg-4.5 mcg/Actuation HFA Aerosol Inhaler RxNo rm: 7373260 HFA Aerosol Inhaler INH INHALE 2 PUFFS ORALLY TWO TIMES A DAY 04/13/2011 Inactive Synthroid 112 mcg Tab RxNorm: 055195 Tablet(s) PO TAKE ONE TABLET BY MOUTH EVERY DAY 04/13/2011 10/12/2011 Inactive Premarin 0.9 mg Tab RxNorm: 865212 Tablet(s) PO TAKE ON E TABLET BY MOUTH EVERY DAY 04/13/2011 10/12/2011 Inactive gabapentin 800 mg Tab RxNorm: 912620 Tablet(s) PO TAKE ONE TABLET BY MOUTH EVERY DAY 04/13/2011 10/12/2011 Inactive Prevacid 30 mg Cap RxNorm: 804968 1 Capsule(s) PO QD 04/13/201110/11 Inactive Spiriva with HandiHaler 18 mcg & inhalation Caps RxNorm: 580 261 Capsule(s) INH INHALE CONTENTS OF 1 CAPSULE(S) WITH HANDIHALER ONCE DAILY 04/13/2011 12/21/2011 Inactive metformin ER 500 mg 24 hr Tab RxNorm: 748952 Tablet(s) PO TAKE ONE TABLET BY MOUTH EVERY DAY 04/13/2011 10/12/2011 Inactive Soma 350 mg Tab RxNorm: 699750 1 Tablet(s) PO QID 03/30/2011 02/13/20 19 Inactive fluoxetine 20 mg Cap RxNorm: 987630 Capsule(s) PO TAKE ONE CAPSULE BY MOUTH EVERY DAY 03/25/2011 10/12/2011 Inactive cefdinir 300 mg Cap RxNorm: 721114 2 Capsule(s) PO QD 03/19/201105/2011 Inactive 16.2 mg-0.1037 mg-0.0194 mg Tab RxNorm: 2626481 2 Tablet(s) PO TID PRN for gas and cramping 03/16/2011 07/13/2011 Inactive Soma 350 mg Tab RxNorm: 513481 2 Tablet(s) PO TID 03/16/2011 03/29/20 11 Inactive Chantix Starting Month Aníbal 0.5 mg (11)-1 mg (3x14) Tab s in a Dose Pack RxNorm: 152945 Tablet(s) PO as directed 03/02/2011 No Stop Date Active diazepam 10 mg Tab RxNorm: 168332 1 Tablet(s) PO BID 02/10/201101/19 Inactive Zofran 4 mg tablet RxNorm: 217969 1 Tablet(s) PO Q4H prn nausea 02/16/2011 Inactive Diflucan 100 mg Tab RxNorm: 367438 1 Tablet(s) PO QD 01/18/201101/24 Inactive Premarin 0.625 mg/g Vaginal Cream RxNorm: 727255 VAG In sert 1gm vaginally at bedtime 3 times weekly 01/18/2011 02/12/2019 Inactive loratadine 10 mg Tab RxNorm: 459142 1 Tablet(s) PO QD 12/17/201003/2012 Inactive Spiriva with HandiHaler 18 mcg & inhalation Caps RxNorm: 580 261 1 Capsule(s) INH QD 12/17/2010 04/12/2011 Inactive Diflucan 100 mg Tab RxNorm: 441637 1 Tablet(s) PO QD 12/17/201012/23 Inactive diazepam 10 mg Tab RxNorm: 532660 1 Tablet(s) PO BID and PRN 201002/12/2019 Inactive One Touch Ultra Test Strips RxNorm: InVt BID Zainab t blood sugar at least twice daily. 11/11/2010 06/11/2011 Inactive fluoxetine 40 mg Cap RxNorm: 788436 1 Capsule(s) PO QAM 11/11/2010 Inactive diazepam 10 mg Tab RxNorm: 176850 1 Tablet(s) PO BID and PRN 200911/12/2010 Inactive Bactrim DS 800 mg-160 mg Tab RxNorm: 816377 1 Tablet(s) PO BID 09/2210/15/2010 Inactive fluoxetine 20 mg Cap RxNorm: 587862 1 Capsule(s) PO QD 10/02/201008/2011 Inactive Bactrim DS 800 mg-160 mg Tab RxNorm: 578294 1 Tablet(s) PO BID 01/201010/03/2010 Inactive Zofran 4 mg Tab RxNorm: 195161 1 Tablet(s) PO Q4H prn nausea 200910/16/2010 Inactive 16.2 mg-0.1037 mg-0.0194 mg Tab RxNorm: 1975069 2 Tablet(s) PO TID PRN for gas and cramping 09/17/2010 10/21/2010 Inactive Gabapentin 800 mg Tab RxNorm: 363919 1 Tablet(s) PO QD 09/16/2010 Inactive ProAir HFA 90 mcg/Actuation Aerosol Inhaler RxNorm: 7592025 2 Puff(s) INH Q4H prn shortness of breath 09/15/2010 12/13/2010 Inactive gabapentin 800 mg Tab RxNorm: 102481 1 Tablet(s) PO QD 09/15/2010 Inactive Prevacid 30 mg Cap RxNorm: 726306 1 Capsule(s) PO QD 09/15/201004/12 Inactive loratadine 10 mg Tab RxNorm: 110096 1 Tablet(s) PO QD 09/15/201011/23 Inactive Premarin 0.9 mg Tab RxNorm: 988040 1 Tablet(s) PO QD 09/15/201004/12 Inactive Synthroid 112 mcg Tab RxNorm: 560384 1 Tablet(s) PO QD 09/15/2010 Inactive metformin ER 500 mg 24 hr Tab RxNorm: 079076 1 Tablet(s) PO QD 08/2304/12/2011 Inactive Symbicort 160 mcg-4.5 mcg/Actuation Inhalation HFA Aer osol Inhaler RxNorm: 5836935 2 Puff(s) INH BID 09/15/2010 04/12/2011 Inactive diazepam 10 mg Tab RxNorm: 855002 1 Tablet(s) PO BID and PRN 200910/13/2010 Inactive Phentermine 37.5 mg Cap RxNorm: 570524 1 Capsule(s) PO QD 09/02/2010 11/02/2011 Inactive ProAir HFA 90 mcg/Actuation Aerosol Inhaler RxNorm: 6152617 2 Puff(s) INH Q4H prn shortness of breath 08/07/2010 No Stop Date Active Premarin 0.9 mg Tab RxNorm: 628678 1 Tablet(s) PO QD 08/07/201009/14 Inactive Loratadine 10 mg Tab RxNorm: 710448 1 Tablet(s) PO QD 08/07/201008/23 Inactive Lactulose 10 gram/15 mL Oral Soln RxNorm: 311204 1 Unit Dose PO QD 08/07/2010 02/12/2019 Inactive Zofran 4 mg Tab RxNorm: 838119 1 Tablet(s) PO Q4H prn nausea 2009 No Stop Date Active Gabapentin 800 mg Tab RxNorm: 236314 1 Tablet(s) PO QD 08/07/2010 Inactive Synthroid 112 mcg Tab RxNorm: 933195 1 Tablet(s) PO QD 08/07/2010 Inactive Metformin ER 500 mg 24 hr Tab RxNorm: 421810 1 Tablet(s) PO QD 07/2309/14/2010 Inactive Vitamin D 1,000 unit Tab RxNorm: 263516 1 Tablet(s) PO TID 08/07/20 10 02/12/2019 Inactive Symbicort 160 mcg-4.5 mcg/Actuation Inhalation HFA Aer osol Inhaler RxNorm: 5753254 2 Puff(s) INH BID 08/07/2010 09/14/2010 Inactive Prevacid 30 mg Cap RxNorm: 321927 1 Capsule(s) PO QD 08/07/201009/14 Inactive Metformin ER 500 mg 24 hr Tab RxNorm: 275490 1 Tablet(s) PO QD 06/2308/06/2010 Inactive Vitamin D 1,000 unit Tab RxNorm: 995640 1 Tablet(s) PO TID 07/14/20 10 08/06/2010 Inactive Synthroid 112 mcg Tab RxNorm: 797300 1 Tablet(s) PO QD 07/14/2010 Inactive Lactulose 10 gram/15 mL Oral Soln RxNorm: 798626 1 Unit Dose PO QD 07/14/2010 08/06/2010 Inactive Levaquin 500 mg Tab RxNorm: 594468 1 Tablet(s) PO QD 07/14/201007/27 Inactive Premarin 0.9 mg Tab RxNorm: 399765 1 Tablet(s) PO QD 07/14/201008/06 Inactive ProAir HFA 90 mcg/Actuation Aerosol Inhaler RxNorm: 7647111 2 Puff(s) INH Q4H prn shortness of breath 07/14/2010 No Stop Date Active Prevacid 30 mg Cap RxNorm: 481448 1 Capsule(s) PO QD 07/14/201008/06 Inactive Zofran 4 mg Tab RxNorm: 383409 1 Tablet(s) PO Q4H prn nausea 2009 No Stop Date Active Symbicort 160 mcg-4.5 mcg/Actuation Inhalation HFA Aer osol Inhaler RxNorm: 1065172 2 Puff(s) INH BID 07/14/2010 08/06/2010 Inactive Loratadine 10 mg Tab RxNorm: 403273 1 Tablet(s) PO QD 07/14/201007/23 Inactive Gabapentin 800 mg Tab RxNorm: 545479 1 Tablet(s) PO QD 07/14/2010 Inactive Metformin ER 500 mg 24 hr Tab RxNorm: 452376 1 Tablet(s) PO 010 07/13/2010 Inactive Diazepam 10 mg Tab RxNorm: 393786 1 Tablet(s) PO BID and PRN 200909/06/2010 Inactive Premarin 0.9 mg Tab RxNorm: 830263 1 Tablet(s) PO QD 06/09/201007/13 Inactive Zofran 4 mg Tab RxNorm: 671945 1 Tablet(s) PO Q4H prn nausea 2009 No Stop Date Active ProAir HFA 90 mcg/Actuation Aerosol Inhaler RxNorm: 0988999 2 Puff(s) INH Q4H prn shortness of breath 06/09/2010 No Stop Date Active Gabapentin 800 mg Tab RxNorm: 438834 1 Tablet(s) PO QD 06/09/2010 Inactive Loratadine 10 mg Tab RxNorm: 092939 1 Tablet(s) PO QD 06/09/201006/23 Inactive Lactulose 10 gram/15 mL Oral Soln RxNorm: 849032 1 Unit Dose PO QD 06/09/2010 07/13/2010 Inactive Prevacid 30 mg Cap RxNorm: 322326 1 Capsule(s) PO QD 06/09/201007/13 Inactive Synthroid 112 mcg Tab RxNorm: 095173 1 Tablet(s) PO QD 06/09/2010 Inactive Symbicort 160 mcg-4.5 mcg/Actuation Inhalation HFA Aer osol Inhaler RxNorm: 8994152 2 Puff(s) INH BID 06/09/2010 07/13/2010 Inactive Omnicef 300 mg Cap RxNorm: 687866 2 Capsule(s) PO QD 05/07/201005/20 Inactive Metformin 500 mg Tab RxNorm: 581384 1 Tablet(s) PO QD 05/06/201005/22 Inactive ProAir HFA 90 mcg/Actuation Aerosol Inhaler RxNorm: 5466120 2 Puff(s) INH Q4H prn shortness of breath 05/06/2010 No Stop Date Active lactulose 10 gram/15 mL Oral Soln RxNorm: 419731 1 Unit Dose PO QD 05/06/2010 06/10/2011 Inactive Loratadine 10 mg Tab RxNorm: 289174 1 Tablet(s) PO QD 05/06/201005/22 Inactive Synthroid 112 mcg Tab RxNorm: 460024 1 Tablet(s) PO QD 05/06/2010 Inactive Symbicort 160 mcg-4.5 mcg/Actuation Inhalation HFA Aer osol Inhaler RxNorm: 7817695 2 Puff(s) INH BID 05/06/2010 06/08/2010 Inactive Gabapentin 800 mg Tab RxNorm: 427281 1 Tablet(s) PO QD 05/06/2010 Inactive 16.2 mg-0.1037 mg-0.0194 mg Tab RxNorm: 6151192 2 Tablet(s) PO TID PRN for gas and cramping 05/06/2010 05/12/2010 Inactive Zofran 4 mg Tab RxNorm: 636935 1 Tablet(s) PO Q4H prn nausea 200904/13/2010 Inactive MS Contin 60 mg Tab RxNorm: 934316 3 Tablet(s) PO BID 04/09/201004/22 Inactive Soma 350 mg Tab RxNorm: 460660 2 Tablet(s) PO TID 04/09/2010 05/08/20 Inactive Symbicort 160 mcg-4.5 mcg/Actuation Inhalation HFA Aer osol Inhaler RxNorm: 5654958 2 Puff(s) INH BID 04/08/2010 05/05/2010 Inactive Doxycycline 100 mg Cap RxNorm: 8664604 1 Capsule(s) PO BID 04/08/20 10 04/17/2010 Inactive Triamterene-Hydrochlorothiazide 37.5 mg-25 mg Cap RxNorm: 19 8316 1 Capsule(s) PO QAM 04/08/2010 09/04/2010 Inactive fluoxetine 40 mg Cap RxNorm: 707320 1 Capsule(s) PO QAM 04/08/2010 Inactive Morphine SR 120 mg multiphase 24 hr Cap RxNorm: 185302 1 Capsul e(s) PO 03/11/2010 04/07/2010 Inactive Endocet 10 mg-325 mg Tab RxNorm: 8947872 1-2 Tablet(s) PO Q4H CA N PAIN 03/11/2010 04/09/2010 Inactive Savella 100 mg Tab RxNorm: 597988 1 Tablet(s) PO BID 03/10/201004/09 Inactive Soma 350 mg Tab RxNorm: 708719 1 Tablet(s) PO TID prn spasm 010 04/09/2010 Inactive Savella 100 mg Tab RxNorm: 236186 1 Tablet(s) PO BID 02/03/201004/09 Inactive Aspirin 81 mg Tab RxNorm: 628769 1 Tablet(s) PO QD No Start Date Active Zyrtec 10 mg Tab RxNorm: 4775177 1 Tablet(s) PO QD No Start Date Active One Touch Ultra Test Strips RxNorm: Misc test at least t wice daily. No Start Date Active coenzyme Q10 200 mg capsule RxNorm: 532781 1 Capsule(s) PO QD No Star t Date Active One Touch Ultra Test Strips RxNorm: InVt BID Zainab t blood sugar at least twice daily. No Start Date 11/10/2010 Inactive Gabapentin 800 mg Tab RxNorm: 718580 1 Tablet(s) PO QD No Start Date 05/05/2010 Inactive Abilify 5 mg tablet RxNorm: 063174 1 Tablet(s) PO QD No Start Date Inactive Chantix 1 mg Tab RxNorm: 035773 1 Tablet(s) PO BID No Start Date 10/22 Inactive Ozempic 0.25 mg or 0.5 mg (2 mg/1.5 mL) subcutaneous p en injector RxNorm: 7978026 .25 Milligram(s) SQ QW No Start Date 07/04/2019 Inactive lancets 28 gauge RxNorm: Miscellaneous As needed for blo od glucose sticks No Start Date 08/23/2013 Inactive potassium chloride ER 20 mEq tablet,extended release RxNorm: 670093 2 Tablet(s) PO QD No Start Date 09/26/2018 Inactive Ventolin HFA 90 mcg/actuation Aerosol Inhaler RxNorm: 176950 1 2 Puff(s) INH Q4H prn No Start Date 01/17/2012 Inactive potassium chloride ER 20 mEq tablet,extended release RxNorm: 746997 2 Tablet(s) PO QD No Start Date 10/19/2018 Inactive Januvia 100 mg tablet RxNorm: 812308 1 Tablet(s) PO QD No Start Date 09/10/2015 Inactive Medrol (Aníbal) 4 mg Tabs in a Dose Pack RxNorm: 816646 Tablet(s) PO N o Start Date 08/09/2011 Inactive as directed Zithromax Z-Aníbal 250 mg Tab RxNorm: 431181 Tablet(s) PO No Start Date 01/25/2012 Inactive as directed vitamin B6-vitamin E-magnesium tablet RxNorm: 1 Tablet(s ) PO QHS with INH No Start Date 03/30/2018 Inactive prednisone 20 mg Tab RxNorm: 737247 1 Tablet(s) PO TID for 1wk then 1 po BID for 1wk No Start Date 01/25/2012 Inactive furosemide 40 mg tablet RxNorm: 110168 1 Tablet(s) PO QAM No Start Date 10/09/2018 Inactive Vitamin D3 1000 units Capsule RxNorm: 1 Capsule(s) PO TID No S tart Date 03/19/2015 Inactive Zofran 4 mg Tab RxNorm: 304300 1 Tablet(s) PO Q4H prn nausea No Sta rt Date 04/13/2010 Inactive Premarin 0.625 mg/g Vaginal Cream RxNorm: 854574 1 Gram (s) VAG QHS 3 times a week No Start Date 09/22/2017 Inactive oxycodone 10 mg tablet RxNorm: 8072651 1-2 Tablet(s) PO QID as n eeded for pain No Start Date 11/04/2015 Inactive Nicoderm CQ 21 mg/24 hr daily Patch RxNorm: 344742 1 Applicatio n TD QD No Start Date 08/05/2015 Inactive Topamax 50 mg tablet RxNorm: 246429 1/2 Tablet(s) PO QH S for 1wk then 1 po q HS for 1wk then 2 po q HS No Start Date 06/27/2012 Inactive Chantix Starting Month Aníbal 0.5 mg (11)-1 mg (3x14) Tab s in a Dose Pack RxNorm: 471019 Tablet(s) PO as directed No Start Date 03/01/2011 Inactive Trulicity 0.75 mg/0.5 mL subcutaneous pen injector RxNorm: 1 336134 Milliliter(s) SQ No Start Date 07/04/2019 Inactive Medrol (Aníbal) 4 mg Tabs in a Dose Pack RxNorm: 262395 Tablet(s) PO N o Start Date 01/25/2012 Inactive as directed Duragesic 100 mcg/hr Transderm Patch RxNorm: 417057 2 A pplication TD Q48H for pain No Start Date 09/05/2013 Inactive Premarin 0.9 mg Tab RxNorm: 178590 1 Tablet(s) PO QD No Start Date Inactive Zithromax Z-Aníbal 250 mg Tab RxNorm: 380786 Tablet(s) PO as direc chinmay No Start Date 01/25/2012 Inactive ondansetron 8 mg disintegrating tablet RxNorm: 017787 1 Tablet(s) PO Q6H as needed No Start Date 10/10/2018 Inactive oxycodone 15 mg tablet RxNorm: 7920615 1 Tablet(s) PO QID as nee ded for pain No Start Date 03/05/2019 Inactive ProAir HFA 90 mcg/Actuation Aerosol Inhaler RxNorm: 060194 2 Puff(s) INH Q4H prn for wheezing or shortness of breath No Start Date 12/21/2011 Inactive pravastatin 40 mg tablet RxNorm: 616416 1/2 Tablet(s) PO QOD No Sta rt Date 04/09/2015 Inactive ipratropium-albuterol 0.5 mg-3 mg(2.5 mg base)/3 mL ne bulization soln RxNorm: 9238812 1 Unit Dose INH Q4H as needed No Start Date 09/09/2016 Inactive furosemide 40 mg tablet RxNorm: 430967 1 Tablet(s) PO QAM as ne eded No Start Date 09/24/2019 Inactive Vitamin D2 oral RxNorm: 4018 oral No Start Date 03/18/2015 Inacti ve pravastatin 40 mg tablet RxNorm: 785626 1/2 Tablet(s) PO QD No Star t Date 04/09/2015 Inactive ondansetron HCl 4 mg tablet RxNorm: 114110 1 Tablet(s) PO Q4H as needed for nausea and vomiting No Start Date 04/07/2016 Inactive furosemide 40 mg tablet RxNorm: 333569 2 Tablet(s) PO QAM No Start Date 09/26/2018 Inactive gabapentin 800 mg tablet RxNorm: 580238 1/2 Tablet(s) PO BID No Sta rt Date 06/21/2017 Inactive gabapentin 800 mg tablet RxNorm: 566155 1/2 Tablet(s) PO BID No Sta rt Date 07/05/2017 Inactive ProAir HFA 90 mcg/Actuation Aerosol Inhaler RxNorm: 0133834 2 Puff(s) INH Q4H prn shortness of breath No Start Date 05/05/2010 Inactive scopolamine 1 mg over 3 days transdermal patch RxNorm: 78897 2 1 Application TD behind ear. Take off after three days No Start Date 10/10/2018 Inactive Metformin 500 mg Tab RxNorm: 194907 1 Tablet(s) PO QD No Start Date 0 05/05/2010 Inactive MS Contin 200 mg Tab RxNorm: 349327 1 Tablet(s) PO BID No Start Date 08/20/2011 Inactive Belladonna-Phenobarbital 48 mg tablet,extended release RxNor m: 2 Tablet(s) PO TID No Start Date 06/04/2016 Inactive Synthroid 112 mcg Tab RxNorm: 906964 1 Tablet(s) PO QD No Start Date 05/05/2010 Inactive Zegerid 40 mg-1.1 gram Cap RxNorm: 428781 1 Capsule(s) PO QD No Sta rt Date 01/25/2012 Inactive Premarin 0.625 mg/g Vaginal Cream RxNorm: 928596 VAG In sert 1gm vaginally at bedtime 3 times weekly No Start Date 01/17/2011 Inactive potassium chloride ER 20 mEq tablet,extended release RxNorm: 454407 1 Tablet(s) PO QD No Start Date 04/24/2019 Inactive methocarbamol 750 mg tablet RxNorm: 346756 2 Tablet(s) PO TID as needed for muscle spasm No Start Date 07/08/2014 Inactive Biaxin XL Aníbal 500 mg 24 hr Tab RxNorm: 819469 Tablet(s) PO as d irected No Start Date 04/24/2013 Inactive Vitamin D3 1,000 unit tablet RxNorm: 268941 3 Tablet(s) PO QD No St art Date 06/01/2017 Inactive Morphine SR 120 mg multiphase 24 hr Cap RxNorm: 865689 1 Capsul e(s) PO BID No Start Date 04/09/2010 Inactive Silvadene 1 % topical cream RxNorm: 265181 1 Application TOP BI D to burn area No Start Date 01/31/2017 Inactive Prednisone 20 mg Tab RxNorm: 993975 1 Tablet(s) PO TID for 3days then BID for 4days No Start Date 01/25/2012 Inactive gabapentin 600 mg tablet RxNorm: 108883 1 Tablet(s) PO BID No Start Date 01/21/2015 Inactive topiramate 50 mg tablet RxNorm: 149002 1 Tablet(s) PO QHS No Start Date 03/30/2018 Inactive Januvia 100 mg tablet RxNorm: 901536 1/2 Tablet(s) PO QD No Start D ate 12/25/2015 Inactive Diazepam 10 mg Tab RxNorm: 549604 1 Tablet(s) PO BID and PRN No Sta rt Date 06/08/2010 Inactive Medication Administered No Medication Administered data Immunizations Vaccine Codes Date Status Influenza CVX: 141 09/28/2012 Pneumovax Unknown 09/28/2012 Influenza (Adult) CVX: 141 09/02/2010 Results No Results data Procedures Procedure Codes Date THER/PROPH/DIAG INJ SC/IM CPT-4: 42778 07/10/2019 METHYLPREDNISOLONE INJECTION CPT-4: J2930 07/10/2019 URINALYSIS NONAUTO W/O SCOPE CPT-4: 42421 09/06/2018 URINE CULTURE/ COLONY COUNT CPT-4: 64704 09/06/2018 DRAIN/INJECT JOINT/BURSA CPT-4: 61854 04/29/2017 TRIAMCINOLONE ACET INJ NOS CPT-4: J3301 04/29/2017 DEXAMETHASONE SODIUM PHOS CPT-4: J1100 04/29/2017 INFLUENZA ASSAY W/OPTIC CPT-4: 52314 12/01/2016 RESPIRATORY CULTURE & STAIN CPT-4: 49757 07/09/2016 TB INTRADERMAL TEST CPT-4: 99780 04/21/2016 DRAIN/INJECT JOINT/BURSA CPT-4: 70632 11/07/2013 METHYLPREDNISOLONE 40 MG INJ CPT-4: J1030 11/07/2013 TRIAMCINOLONE ACET INJ NOS CPT-4: J3301 11/07/2013 DRAIN/INJECT JOINT/BURSA CPT-4: 10610 08/08/2013 METHYLPREDNISOLONE 40 MG INJ CPT-4: J1030 08/08/2013 TRIAMCINOLONE ACET INJ NOS CPT-4: J3301 08/08/2013 FLU VACCINE 3 YRS & > IM UP 64 CPT-4: 41293 2 PNEUMOCOCCAL VACC 23 ADITYA IM CPT-4: 76275 09/28/2012 IMMUNIZATION ADMIN CPT-4: 42865 09/28/2012 IMMUNIZATION ADMIN EACH ADD CPT-4: 81751 09/28/2012 FLU VACCINE 3 YRS & > IM UP 64 CPT-4: 31030 0 IMMUNIZATION ADMIN CPT-4: 81682 09/02/2010 METHYLPREDNISOLONE INJECTION CPT-4: J2930 05/07/2010 THER/PROPH/DIAG INJ SC/IM CPT-4: 78614 05/07/2010 Vital Signs Date Vital 10/30/2019 Blood [...] 1: 122/78 Code: 8480-6 BMI: 29.5 Code: 82701-0 Heart Rate 1: 76 bpm Height: 5'4" Respiratory Rate: 20 bpm SpO2: 96% Tempera ture: 37.0 (C) / 98.6 (F) Weight: 172 lbs 01/25/2019 Blood Pressure 1: 132/80 Code: 8480-6 BMI: 29.7 Code: 16558-2 Heart Rate 1: 84 bpm Height: 5'4" Respiratory Rate: 22 bpm SpO2: 98% Tempera ture: 36.9 (C) / 98.4 (F) Weight: 173 lbs 01/03/2019 Blood Pressure 1: 116/70 Code: 8480-6 BMI: 29.5 Code: 18472-0 Heart Rate 1: 92 bpm Height: 5'4" Respiratory Rate: 24 bpm SpO2: 98% Tempera ture: 37.2 (C) / 98.9 (F) Weight: 172 lbs 11/21/2018 Blood Pressure 1: 146/82 Code: 8480-6 BMI: 28.2 Code: 16389-7 Heart Rate 1: 88 bpm Height: 5'4" Respiratory Rate: 22 bpm SpO2: 97% Tempera ture: 36.9 (C) / 98.4 (F) Weight: 164 lbs 10/27/2018 Blood Pressure 1: 122/70 Code: 8480-6 BMI: 27.6 Code: 46263-6 Heart Rate 1: 88 bpm Height: 5'4" Respiratory Rate: 20 bpm SpO2: 96% Tempera ture: 36.8 (C) / 98.3 (F) Weight: 161 lbs 10/18/2018 Blood Pressure 1: 126/70 Code: 8480-6 BMI: 28.3 Code: 83515-3 Heart Rate 1: 76 bpm Height: 5'4" Respiratory Rate: 20 bpm SpO2: 95% Tempera ture: 37.0 (C) / 98.6 (F) Weight: 165 lbs 09/27/2018 Blood Pressure 1: 124/78 Code: 8480-6 BMI: 27.1 Code: 22667-7 Heart Rate 1: 88 bpm Height: 5'4" Respiratory Rate: 20 bpm SpO2: 98% Tempera ture: 36.4 (C) / 97.6 (F) Weight: 158 lbs 09/14/2018 Blood Pressure 1: 140/72 Code: 8480-6 BMI: 26.1 Code: 28516-0 Heart Rate 1: 100 bpm Height: 5'4" Respiratory Rate: 20 bpm SpO2: 97% Tempera ture: 36.9 (C) / 98.4 (F) Weight: 152 lbs 09/06/2018 Blood Pressure 1: 156/82 Code: 8480-6 BMI: 26.3 Code: 29989-4 Heart Rate 1: 100 bpm Height: 5'4" Respiratory Rate: 28 bpm SpO2: 95% Tempera ture: 37.2 (C) / 98.9 (F) Weight: 153 lbs 08/16/2018 Blood Pressure 1: 130/78 Code: 8480-6 Heart Rate 1: 87 bpm Respiratory Rate: 24 bpm SpO2: 94% Temperature: 36.9 (C) / 98.4 (F) We ight: 147 lbs 8 oz 07/07/2018 Blood Pressure 1: 116/78 Code: 8480-6 BMI: 22.7 Code: 53362-8 Heart Rate 1: 88 bpm Height: 5'4" Respiratory Rate: 22 bpm SpO2: 98% Tempera ture: 36.5 (C) / 97.7 (F) Weight: 132 lbs 05/31/2018 Blood Pressure 1: 128/78 Code: 8480-6 BMI: 22.3 Code: 26940-5 Heart Rate 1: 92 bpm Height: 5'4" Respiratory Rate: 26 bpm SpO2: 94% Tempera ture: 36.7 (C) / 98.1 (F) Weight: 130 lbs 03/31/2018 Blood Pressure 1: 136/78 Code: 8480-6 BMI: 21.5 Code: 31781-0 Heart Rate 1: 76 bpm Height: 5'4" Respiratory Rate: 24 bpm SpO2: 95% Tempera ture: 36.8 (C) / 98.3 (F) Weight: 125 lbs 01/26/2018 Blood Pressure 1: 142/64 Code: 8480-6 BMI: 20.6 Code: 84619-2 Heart Rate 1: 90 bpm Height: 5'4" Respiratory Rate: 24 bpm SpO2: 92% Tempera ture: 36.3 (C) / 97.3 (F) Weight: 120 lbs 10/26/2017 Blood Pressure 1: 124/70 Code: 8480-6 BMI: 20.3 Code: 46052-4 Heart Rate 1: 76 bpm Height: 5'4" Respiratory Rate: 22 bpm SpO2: 94% Tempera ture: 36.7 (C) / 98.1 (F) Weight: 118 lbs 09/23/2017 Blood Pressure 1: 106/70 Code: 8480-6 BMI: 19.2 Code: 38000-8 Heart Rate 1: 76 bpm Height: 5'4" Respiratory Rate: 20 bpm SpO2: 94% Tempera ture: 36.8 (C) / 98.3 (F) Weight: 112 lbs 08/12/2017 Blood Pressure 1: 116/68 Code: 8480-6 BMI: 20.1 Code: 00161-7 Heart Rate 1: 80 bpm Height: 5'4" Respiratory Rate: 22 bpm SpO2: 95% Tempera ture: 36.8 (C) / 98.2 (F) Weight: 117 lbs 07/06/2017 Blood Pressure 1: 136/78 Code: 8480-6 BMI: 20.6 Code: 51772-2 Heart Rate 1: 76 bpm Height: 5'4" Respiratory Rate: 24 bpm SpO2: 96% Tempera ture: 36.8 (C) / 98.2 (F) Weight: 120 lbs 06/02/2017 Blood Pressure 1: 112/70 Code: 8480-6 Heart Rate 1: 92 bpm Height: 5'4" Respiratory Rate: 24 bpm SpO2: 95% Temperature: 37.0 (C) / 98.6 (F) Weight: 04/29/2017 Blood Pressure 1: 94/52 Code: 8480-6 BMI: 19.6 C ode: 11666-2 Heart Rate 1: 84 bpm Height: 5'4" [...] 92/58 Code: 8480-6 BMI: 19.2 C ode: 09902-7 Heart Rate 1: 84 bpm Height: 5'4" Respiratory Rate: 26 bpm SpO2: 95% Tempera ture: 36.7 (C) / 98.0 (F) Weight: 112 lbs 12/01/2016 Blood Pressure 1: 114/70 Code: 8480-6 BMI: 19.2 Code: 96523-2 Heart Rate 1: 96 bpm Height: 5'4" Respiratory Rate: 28 bpm SpO2: 93% Tempera ture: 38.3 (C) / 101.0 (F) Weight: 112 lbs 10/27/2016 Blood Pressure 1: 126/66 Code: 8480-6 BMI: 19.6 Code: 70491-8 Heart Rate 1: 92 bpm Height: 5'4" Respiratory Rate: 28 bpm SpO2: 90% Tempera ture: 36.8 (C) / 98.3 (F) Weight: 114 lbs 09/09/2016 Blood Pressure 1: 126/74 Code: 8480-6 Heart Rate 1: 104 bpm Height: 5'4" Respiratory Rate: 32 bpm SpO2: 88% Temperature: 37 .2 (C) / 99.0 (F) 08/26/2016 Blood Pressure 1: 134/82 Code: 8480-6 BMI: 22.0 Code: 97714-2 Heart Rate 1: 84 bpm Height: 5'4" Respiratory Rate: 24 bpm SpO2: 94% Tempera ture: 36.8 (C) / 98.3 (F) Weight: 128 lbs 05/21/2016 Blood Pressure 1: 142/80 Code: 8480-6 BMI: 21.6 Code: 21468-5 Heart Rate 1: 104 bpm Height: 5'4" Respiratory Rate: 22 bpm SpO2: 93% Tempera ture: 36.0 (C) / 96.8 (F) Weight: 126 lbs 03/25/2016 Blood Pressure 1: 126/62 Code: 8480-6 Heart Rate 1: 88 bpm Respiratory Rate: 20 bpm SpO2: 92% Temperature: 36.8 (C) / 98.3 (F) We ight: 130 lbs 01/23/2016 Blood Pressure 1: 146/82 Code: 8480-6 BMI: 24.1 Code: 08611-5 Heart Rate 1: 92 bpm Height: 5'3" Respiratory Rate: 22 bpm Temperature: 37 .1 (C) / 98.8 (F) Weight: 136 lbs 12/26/2015 Blood Pressure 1: 142/78 Code: 8480-6 BMI: 24.6 Code: 03131-1 Heart Rate 1: 78 bpm Height: 5'3" Respiratory Rate: 20 bpm Temperature: 36 .7 (C) / 98.1 (F) Weight: 139 lbs 12/03/2015 Blood Pressure 1: 126/60 Code: 8480-6 BMI: 24.6 Code: 70033-0 Heart Rate 1: 100 bpm Height: 5'3" Respiratory Rate: 28 bpm Temperature: 37 .6 (C) / 99.6 (F) Weight: 139 lbs 09/10/2015 Blood Pressure 1: 124/64 Code: 8480-6 BMI: 23.7 Code: 48821-8 Heart Rate 1: 88 bpm Height: 5'3" Respiratory Rate: 24 bpm SpO2: 95% Tempera ture: 36.4 (C) / 97.6 (F) Weight: 134 lbs 08/06/2015 Blood Pressure 1: 114/76 Code: 8480-6 BMI: 23.2 Code: 01725-6 Heart Rate 1: 88 bpm Height: 5'3" Respiratory Rate: 22 bpm Temperature: 36 .6 (C) / 97.9 (F) Weight: 131 lbs 07/18/2015 Blood Pressure 1: 144/78 Code: 8480-6 BMI: 23.7 Code: 54059-9 Heart Rate 1: 84 bpm Height: 5'3" Respiratory Rate: 20 bpm Temperature: 37 .2 (C) / 99.0 (F) Weight: 134 lbs 04/10/2015 Blood Pressure 1: 110/64 Code: 8480-6 Heart Rate 1: 80 bpm Height: Respiratory Rate: 20 bpm Temperature: 37.1 (C) / 98.8 (F) Weight: 03/05/2015 Blood Pressure 1: 136/80 Code: 8480-6 BMI: 23.9 Code: 58998-6 Heart Rate 1: 76 bpm Height: 5'3" Respiratory Rate: 24 bpm Temperature: 37 .0 (C) / 98.6 (F) Weight: 135 lbs 01/30/2015 Blood Pressure 1: 142/80 Code: 8480-6 BMI: 23.0 Code: 41003-0 Heart Rate 1: 96 bpm Height: 5'3" Respiratory Rate: 22 bpm Temperature: 36 .2 (C) / 97.2 (F) Weight: 130 lbs 01/02/2015 Blood Pressure 1: 124/70 Code: 8480-6 BMI: 23.4 Code: 51139-0 Heart Rate 1: 84 bpm Height: 5'3" Respiratory Rate: 24 bpm SpO2: 95% Tempera ture: 36.9 (C) / 98.5 (F) Weight: 132 lbs 10/03/2014 Blood Pressure 1: 106/68 Code: 8480-6 BMI: 22.5 Code: 02895-2 Heart Rate 1: 88 bpm Height: 5'3" Respiratory Rate: 24 bpm Temperature: 37 .0 (C) / 98.6 (F) Weight: 127 lbs 08/27/2014 Blood Pressure 1: 124/68 Code: 8480-6 BMI: 21.1 Code: 60885-0 Heart Rate 1: 88 bpm Height: 5'3" [...] 1: 120/70 Code: 8480-6 BMI: 19.2 Code: 91902-7 Heart Rate 1: 70 bpm Height: 5'4" Respiratory Rate: 20 bpm Temperature: 36 .9 (C) / 98.4 (F) Weight: 112 lbs 06/28/2013 Blood Pressure 1: 102/68 Code: 8480-6 BMI: 19.6 Code: 82893-9 Heart Rate 1: 76 bpm Height: 5'4" Respiratory Rate: 20 bpm Temperature: 36 .8 (C) / 98.2 (F) Weight: 114 lbs 05/31/2013 Blood Pressure 1: 106/70 Code: 8480-6 BMI: 18.9 Code: 58686-9 Heart Rate 1: 100 bpm Height: 5'4" Respiratory Rate: 20 bpm Temperature: 36 .4 (C) / 97.6 (F) Weight: 110 lbs 05/03/2013 Blood Pressure 1: 126/70 Code: 8480-6 BMI: 19.1 Code: 34184-4 Heart Rate 1: 88 bpm Height: 5'4" Respiratory Rate: 20 bpm Temperature: 37 .1 (C) / 98.8 (F) Weight: 111 lbs 04/25/2013 Blood Pressure 1: 114/68 Code: 8480-6 BMI: 19.4 Code: 71592-1 Heart Rate 1: 92 bpm Height: 5'4" Respiratory Rate: 24 bpm SpO2: 96% Tempera ture: 37.7 (C) / 99.8 (F) Weight: 113 lbs 03/08/2013 Blood Pressure 1: 94/68 Code: 8480-6 BMI: 21.3 C ode: 89755-5 Heart Rate 1: 88 bpm Height: 5'4" Respiratory Rate: 24 bpm Temperature: 37 .0 (C) / 98.6 (F) Weight: 124 lbs 02/07/2013 Blood Pressure 1: 106/64 Code: 8480-6 BMI: 21.8 Code: 13884-0 Heart Rate 1: 84 bpm Height: 5'4" Respiratory Rate: 22 bpm Temperature: 36 .8 (C) / 98.2 (F) Weight: 127 lbs 01/10/2013 Blood Pressure 1: 122/68 Code: 8480-6 BMI: 21.6 Code: 00253-6 Heart Rate 1: 94 bpm Height: 5'4" SpO2: 94% Temperature: 36.7 (C) / 98.1 (F) Weight: 126 lbs 09/28/2012 Blood Pressure 1: 124/78 Code: 8480-6 BMI: 24.9 Code: 46696-1 Heart Rate 1: 92 bpm Height: 5'4" Respiratory Rate: 20 bpm Temperature: 36 .7 (C) / 98.1 (F) Weight: 145 lbs 06/28/2012 Blood Pressure 1: 134/80 Code: 8480-6 BMI: 24.9 Code: 69353-7 Heart Rate 1: 76 bpm Height: 5'4" Respiratory Rate: 20 bpm Temperature: 36 .8 (C) / 98.2 (F) Weight: 145 lbs 05/03/2012 Blood Pressure 1: 108/62 Code: 8480-6 BMI: 25.6 Code: 99248-8 Heart Rate 1: 88 bpm Height: 5'4" Temperature: 36.2 (C) / 97.2 (F) Weight: 149 lbs 03/01/2012 Blood Pressure 1: 124/66 Code: 8480-6 BMI: 25.1 Code: 24760-7 Heart Rate 1: 76 bpm Height: 5'4" Respiratory Rate: 20 bpm Temperature: 36 .6 (C) / 97.9 (F) Weight: 146 lbs 01/26/2012 Blood Pressure 1: 118/82 Code: 8480-6 BMI: 25.1 Code: 14074-0 Heart Rate 1: 74 bpm Height: 5'4" Temperature: 36.8 (C) / 98.2 (F) Weight: 146 lbs 11/03/2011 Blood Pressure 1: 126/80 Code: 8480-6 BMI: 27.3 Code: 38088-8 Heart Rate 1: 72 bpm Height: 5'4" [...] up 05/31/2013 sores 05/03/2013 follow up 04/25/2013 [facility] fw pain, generalized 03/08/2013 follow up 02/07/2013 1mo fwup follow up 01/10/2013 follow up 09/28/2012 2mo fwup follow up 06/28/2012 2mo fwup follow up 05/03/2012 follow up 03/01/2012 1mo fwup diabetes mellitus 01/26/2012 follow up 11/03/2011 3mo fwup follow up 08/10/2011 1mo fwup cough 07/15/2011 cough 03/19/2011 follow up 01/28/2011 1mo fwup follow up 12/17/2010 [facility] fwup follow up 2010 2wk fwup arthralgia(s) 10/02/2010 neck pain 09/24/2010 right sided, feels k not in thigh follow up 09/02/2010 2wk fwup back pain 07/14/2010 had epidural beginni ng of Jun, seems to be wearing off the last 3 days follow up 05/07/2010 depression 04/08/2010 savella not helping, wants to retry prozac Encounters Encounter Performer Location Codes Date ([id number]) OFFICE/OUTPATIENT VISIT EST Diagnosis: Chronic pain syndrome[ICD10: G89.4] Diagnosis: Lumbar degenerative disc disease[ICD10: M51.36] Diagnosis: Muscle spasm[ICD10: M62.838] Diagnosis: Spinal stenosis, lumbar region with neurogenic claudication[ICD10: M48.062] Diagnosis: Spondylosis without myelopathy or radiculopathy, 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] Vika RENTERIA DO [facility] CPT-4: 00951 10/30/2019 ([id number]) OFFICE/OUTPATIENT VISIT EST Diagnosis: Chronic pain syndrome[ICD10: G89.4] Vika RENTERIA [employer] [facility] CPT-4: 33186 10/25/2019 ([id number]) OFFICE/OUTPATIENT VISIT EST Diagnosis: Epigastric pain[ICD10: R10.13] Diagnosis: Nausea[ICD10: R11.0] Diagnosis: Chronic obstructive pulmonary disease, unspecified[ICD10: J44.9] Vika RENTERIA DO [facility] CPT-4: 84231 07/26/2019 ([id number]) OFFICE/OUTPATIENT VISIT EST Diagnosis: Chronic obstructive pulmonary disease with (acute) exacerbation[ICD10: J44.1] Diagnosis: Chronic respiratory failure with hypoxia[ICD10: J96.11] Diagnosis: Other fatigue[ICD10: R53.83] Diagnosis: Edema, unspecified[ICD10: R60.9] Vika RENTERIA [employer] [facility] CPT-4: 79224 07/19/2019 ([id number]) OFFICE/OUTPATIENT VISIT EST Diagnosis: Chronic obstructive pulmonary disease with acute lower respiratory infection[ICD10: J44.0] Vika RENTERIA DO [facility] CPT-4: 06725 07/10/2019 ([id number]) OFFICE/OUTPATIENT VISIT EST Diagnosis: Type 2 diabetes mellitus with hyperglycemia[ICD10: E11.65] Diagnosis: Other infective otitis externa, left ear[ICD10: H60.392] Vika RENTERIA [employer] [facility] CPT-4: 04847 06/05/2019 ([id number]) OFFICE/OUTPATIENT VISIT EST Diagnosis: Chronic obstructive pulmonary disease with (acute) exacerbation[ICD10: J44.1] Diagnosis: Type 2 diabetes mellitus with hyperglycemia[ICD10: E11.65] Vika RENTERIA DO [facility] CPT-4: 83502 05/03/2019 ([id number]) OFFICE/OUTPATIENT VISIT EST Diagnosis: Type 2 diabetes mellitus with hyperglycemia[ICD10: E11.65] Diagnosis: Abnormal weight gain[ICD10: R63.5] Diagnosis: Chronic obstructive pulmonary disease with acute lower respiratory infection[ICD10: J44.0] Vika RENTERIA DO [facility] CPT-4: 29654 04/11/2019 ([id number]) OFFICE/OUTPATIENT VISIT EST Diagnosis: Hypothyroidism,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
--- OUTSIDE RECORDS SUMMARY | 2020-04-24 23:38 | XMS REPORT | CCD ---
Author Author Yana Renteria D.O. 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 Phone Vika Renteria D.O., PP Unavailable CCM Unavailable Summary Purpose Interface Exchange Insurance Providers Payer name Policy type / Coverage type Covered democrat ID Effective Begin Date Effective End Date [employer] [facility] Medicaid [id number] 2018 U nknown Family History Family History data not found Social History Social History Element Codes Description Effective Dates Marital status Unknown 06/28/[address]: [id number] Currently smokes tobacco 05/2013 Allergies, Adverse Reactions, [...] Stop Date Status Fill Instructions MS Contin 100 mg tablet,extended release RxNorm: 017857 1 Table t(s) Oral QD 10/30/2019 11/28/2019 Active ferrous sulfate 325 mg (65 mg iron) tablet RxNorm: 198071 1 Tab let(s) Oral QD 10/30/2019 No Stop Date Active MS Contin 100 mg tablet,extended release RxNorm: 880397 1 Table t(s) Oral QD 10/30/2019 10/29/2019 Inactive Relistor 150 mg tablet RxNorm: 2325935 TAKE THREE TABLETS BY BENOIT TH DAILY 10/25/2019 No Stop Date Active oxycodone 15 mg tablet RxNorm: 5952822 1 Tablet(s) Oral four times a day as needed for pain 10/25/2019 10/25/2019 Inactive pantoprazole 40 mg tablet,delayed release RxNorm: 148779 1 Tabl et(s) Oral QD 10/25/2019 No Stop Date Active metformin 500 mg tablet RxNorm: 659077 1 Tablet(s) Oral QD 10/25/20 19 No Stop Date Active levothyroxine 25 mcg tablet RxNorm: 740370 1 Tablet(s) Oral QAM 02/201912/23/2019 Active Minipress 2 mg capsule RxNorm: 890976 1 Capsule(s) Oral QAM and 3 at bedtime 10/25/2019 No Stop Date Active Lancets, Super Thin RxNorm: 1 Unit Dose Miscellaneous QD 9 11/27/2020 Active Cymbalta 60 mg capsule,delayed release RxNorm: 827036 1 Capsule (s) Oral QAM 10/25/2019 No Stop Date Active Cymbalta 30 mg capsule,delayed release RxNorm: 469024 1 Capsule (s) Oral QAM 10/25/2019 No Stop Date Active levothyroxine 25 mcg tablet RxNorm: 814927 1 Tablet(s) Oral QAM 02/201910/24/2019 Inactive MS Contin 100 mg tablet,extended release RxNorm: 951578 1 Tablet(s) Oral two times a day replaces fentanyl 10/25/2019 10/25/2019 Inactive Premarin 0.45 mg tablet RxNorm: 719464 TAKE ONE TABLET BY MOUTH DAILY 10/24/2019 No Stop Date Active Duragesic 100 mcg/hr transdermal patch RxNorm: 719081 2 Application TD Q48H for pain 10/18/2019 10/24/2019 Inactive gabapentin 300 mg capsule RxNorm: 032365 TAKE ONE CAPSULE BY MO UTH TWICE A DAY 10/16/2019 No Stop Date Active cyclobenzaprine 10 mg tablet RxNorm: 812121 TAKE ONE TA BLET BY MOUTH THREE TIMES A DAY NEEDED 09/27/2019 No Stop Date Active ProAir HFA 90 mcg/actuation aerosol inhaler RxNorm: 663904 INHALE ONE PUFF BY MOUTH EVERY 4 HOURS FOR WHEEZING OR FOR SHORTNESS OF BREATH 09/25/2019 No Stop Date Active furosemide 40 mg tablet RxNorm: 347093 1 Tablet(s) Oral QAM as needed 09/25/2019 09/25/2019 Inactive Relistor 150 mg tablet RxNorm: 9388530 TAKE THREE TABLETS BY BENOIT TH DAILY 09/25/2019 10/24/2019 Inactive oxycodone 15 mg tablet RxNorm: 4993581 1 Tablet(s) PO QID as nee ded for pain 09/21/2019 10/24/2019 Inactive Duragesic 100 mcg/hr transdermal patch RxNorm: 612666 2 Application TD Q48H for pain 09/19/2019 10/17/2019 Inactive Daliresp 500 mcg tablet RxNorm: 2459783 1 Tablet(s) Oral QD 019 03/08/2020 Active potassium chloride ER 20 mEq tablet,extended release RxNorm: 689374 TAKE ONE TABLET BY MOUTH DAILY 07/25/2019 01/20/2020 Active Relistor 150 mg tablet RxNorm: 5666645 TAKE THREE TABLETS BY BENOIT TH DAILY 07/25/2019 07/30/2019 Inactive cyclobenzaprine 10 mg tablet RxNorm: 613146 TAKE ONE TA BLET BY MOUTH THREE TIMES A DAY NEEDED 07/25/2019 09/22/2019 Inactive fluoxetine 40 mg capsule RxNorm: 087195 TAKE ONE CAPSULE BY BENOIT TH EVERY MORNING 07/11/2019 10/24/2019 Inactive Medrol (Aníbal) 4 mg tablets in a dose pack RxNorm: 223508 6 Tablet(s) PO QD --then as directed 07/10/2019 07/15/2019 Inactive omeprazole 40 mg capsule,delayed release RxNorm: 520721 1 Capsule(s) PO QD for stomach TAKE ONE CAPSULE BY MOUTH DAILY 07/10/2019 10/24/2019 Inactive Augmentin 875 mg-125 mg tablet RxNorm: 596292 1 Tablet(s) PO BID 07/16/2019 Inactive Trulicity 0.75 mg/0.5 mL subcutaneous pen injector RxNorm: 1 563795 0.75 Milliliter(s) SQ weekly 07/05/2019 10/24/2019 Inactive Compazine 10 mg tablet RxNorm: 021786 TAKE ONE TABLET B Y MOUTH FOUR TIMES A DAY NEEDED FOR NAUSEA 06/20/2019 07/19/2019 Inactive ProAir HFA 90 mcg/actuation aerosol inhaler RxNorm: 571513 INHALE ONE PUFF BY MOUTH EVERY 4 HOURS FOR WHEEZING OR FOR SHORTNESS OF BREATH 06/20/2019 06/23/2019 Inactive Daliresp 500 mcg tablet RxNorm: 0458832 TAKE ONE TABLET BY MOUTH DAILY 06/12/2019 09/10/2019 Inactive clihnbjh-nfzvntopf-awgkstjjd 3.5 mg/mL-10,000 unit/mL- 1 % ear solution RxNorm: 801321 4 Drop(s) otic (ear) TID to left ear 06/05/2019 10/24/2019 Inac tive furosemide 40 mg tablet RxNorm: 674303 TAKE ONE TABLET BY MOUTH EVERY MORNING 05/26/2019 07/09/2019 Inactive Duragesic 100 mcg/hr transdermal patch RxNorm: 281324 2 Application TD Q48H for pain 05/16/2019 06/14/2019 Inactive oxycodone 15 mg tablet RxNorm: 2675731 1 Tablet(s) PO QID as nee ded for pain 05/10/2019 09/20/2019 Inactive doxycycline hyclate 100 mg capsule RxNorm: 2735216 1 Capsule(s) PO BID 05/03/2019 05/12/2019 Inactive prednisone 20 mg tablet RxNorm: 067123 1 Tablet(s) PO T ID for 3 days then 1 po BID for 3 days then one daily for 3 days 05/03/2019 07/11/2019 Inactiv e Ozempic 0.25 mg or 0.5 mg (2 mg/1.5 mL) subcutaneous p en injector RxNorm: 9966046 0.5 Milligram(s) SQ QW 05/03/2019 07/09/2019 Inactive fluconazole 100 mg tablet RxNorm: 825296 1 Tablet(s) PO QD 05/03/20 19 05/07/2019 Inactive Premarin 0.45 mg tablet RxNorm: 877121 TAKE ONE TABLET BY MOUTH DAILY 05/03/2019 10/23/2019 Inactive potassium chloride ER 20 mEq tablet,extended release RxNorm: 139813 1 Tablet(s) PO QD 04/27/2019 07/25/2019 Inactive potassium chloride ER 20 mEq tablet,extended release RxNorm: 518284 1 Tablet(s) PO QD 04/25/2019 04/26/2019 Inactive Compazine 10 mg tablet RxNorm: 905457 1 Tablet(s) PO QID as nee ded for nausea 04/25/2019 05/04/2019 Inactive ProAir HFA 90 mcg/actuation aerosol inhaler RxNorm: 944101 INHALE ONE PUFF BY MOUTH EVERY 4 HOURS FOR WHEEZING OR FOR SHORTNESS OF BREATH 04/12/2019 06/10/2019 Inactive Medrol (Aníbal) 4 mg tablets in a dose pack RxNorm: 247267 6 Tablet(s) PO QD --then as directed 04/11/2019 04/16/2019 Inactive Symbicort 160 mcg-4.5 mcg/actuation HFA aerosol inhaler RxNo rm: 6406987 2 Puff(s) INH BID 04/10/2019 10/06/2019 Inactive levothyroxine 50 mcg tablet RxNorm: 406959 1 Tablet(s) PO QD 201810/24/2019 Inactive gabapentin 300 mg capsule RxNorm: 692871 1 Capsule(s) PO BID 201810/02/2019 Inactive Symbicort 160 mcg-4.5 mcg/actuation HFA aerosol inhaler RxNo rm: 9229619 2 Puff(s) INH BID 04/06/2019 04/09/2019 Inactive oxycodone 15 mg tablet RxNorm: 8076754 1 Tablet(s) PO QID as nee ded for pain 04/05/2019 05/09/2019 Inactive levothyroxine 50 mcg tablet RxNorm: 401410 1 Tablet(s) PO QD 201804/09/2019 Inactive furosemide 40 mg tablet RxNorm: 999694 TAKE ONE TABLET BY MOUTH EVERY MORNING 03/21/2019 04/19/2019 Inactive levothyroxine 50 mcg tablet RxNorm: 489051 TAKE ONE TABLET BY M OUTH DAILY 03/21/2019 03/27/2019 Inactive Duragesic 100 mcg/hr transdermal patch RxNorm: 765200 2 Application TD Q48H for pain 03/13/2019 04/11/2019 Inactive oxycodone 15 mg tablet RxNorm: 9399354 1 Tablet(s) PO QID as nee ded for pain 03/06/2019 04/04/2019 Inactive Relistor 150 mg tablet RxNorm: 9538543 3 Tablet(s) PO QD 02/28/2019 0 05/28/2019 Inactive cyclobenzaprine 10 mg tablet RxNorm: 416524 1 Tablet(s) PO TID as needed 02/28/2019 05/28/2019 Inactive phentermine 37.5 mg tablet RxNorm: 443304 1 Tablet(s) PO QAM 201803/15/2019 Inactive Duragesic 100 mcg/hr transdermal patch RxNorm: 925359 2 Application TD Q48H for pain 02/09/2019 03/10/2019 Inactive Daliresp 500 mcg tablet RxNorm: 2711909 TAKE ONE TABLET BY MOUTH DAILY 01/31/2019 05/30/2019 Inactive Premarin 0.45 mg tablet RxNorm: 424042 1 Tablet(s) PO QD 01/31/2019 0 04/30/2019 Inactive fluoxetine 40 mg capsule RxNorm: 911860 Capsule(s) TAKE ONE CAPSULE BY MOUTH EVERY MORNING 01/31/2019 04/30/2019 Inactive levothyroxine 50 mcg tablet RxNorm: 985041 1 Tablet(s) PO QD 201804/10/2019 Inactive follow up in 3 weeks levothyroxine 50 mcg tablet RxNorm: 158276 1 Tablet(s) PO QD 201801/25/2019 Inactive follow up in 3 weeks potassium chloride ER 20 mEq tablet,extended release RxNorm: 351260 2 Tablet(s) PO BID 01/23/2019 02/14/2019 Inactive Synthroid 50 mcg tablet RxNorm: 054741 TAKE ONE TABLET BY MOUTH DAILY 01/16/2019 10/24/2019 Inactive potassium chloride ER 20 mEq tablet,extended release RxNorm: 219521 2 Tablet(s) PO BID 01/04/2019 01/22/2019 Inactive ProAir HFA 90 mcg/actuation aerosol inhaler RxNorm: 076911 INHALE ONE PUFF BY MOUTH EVERY 4 HOURS FOR WHEEZING OR SHORTNESS OF BREATH 01/04/201902/20 Inactive Request already responded to by other me ans (e.g. phone or fax) ProAir HFA 90 mcg/actuation aerosol inhaler RxNorm: 3007176 INHALE ONE PUFF BY MOUTH EVERY 4 HOURS FOR WHEEZING OR SHORTNESS OF BREATH 01/02/201912/23 Inactive gabapentin 300 mg capsule RxNorm: 418554 TAKE ONE CAPSULE BY MO UTH TWICE A DAY 12/30/2018 04/06/2019 Inactive furosemide 40 mg tablet RxNorm: 962726 1 Tablet(s) PO QAM 12/26/2018 02/23/2019 Inactive Compazine 10 mg tablet RxNorm: 642719 1 Tablet(s) PO QID as nee ded for nausea 12/07/2018 12/16/2018 Inactive metolazone 2.5 mg tablet RxNorm: 218406 TAKE ONE TABLET BY MOUT H EVERY MORNING 12/05/2018 01/03/2019 Inactive metformin ER 500 mg tablet,extended release 24 hr RxNorm: 86 0975 TAKE ONE TABLET BY MOUTH DAILY 12/05/2018 04/10/2019 Inactive Synthroid 50 mcg tablet RxNorm: 107339 1 Tablet(s) PO QD 11/25/2018 0 01/03/2019 Inactive DC any other synthroid strengths. Should be 50mcg only cyclobenzaprine 10 mg tablet RxNorm: 506478 TAKE ONE TA BLET BY MOUTH THREE TIMES A DAY NEEDED 11/09/2018 02/06/2019 Inactive metolazone 2.5 mg tablet RxNorm: 416444 1 Tablet(s) PO QAM repl aces 5mg dose 11/02/2018 12/01/2018 Inactive potassium chloride ER 20 mEq tablet,extended release RxNorm: 035989 2 Tablet(s) PO QD 2018 01/02/2019 Inactive Compazine 10 mg tablet RxNorm: 268408 1 Tablet(s) PO QID as nee ded for nausea 10/18/2018 12/07/2018 Inactive furosemide 40 mg tablet RxNorm: 701376 1 Tablet(s) PO QAM 10/12/2018 12/10/2018 Inactive ondansetron 8 mg disintegrating tablet RxNorm: 990386 1 Tablet(s) PO Q6H as needed 10/11/2018 10/17/2018 Inactive scopolamine 1 mg over 3 days transdermal patch RxNorm: 94624 2 1 Application TD behind ear. Take off after three days 10/11/2018 01/02/2019 Inactive furosemide 40 mg tablet RxNorm: 049703 1 Tablet(s) PO QAM 10/10/2018 12/26/2018 Inactive metolazone 5 mg tablet RxNorm: 711323 1 Tablet(s) PO QAM 10/06/2018 1 01/03/2018 Inactive metolazone 5 mg tablet RxNorm: 558989 1 Tablet(s) PO QAM 10/06/2018 1 12/05/2017 Inactive Xtampza ER 36 mg capsule sprinkle RxNorm: 2408604 1 Capsule(s) P O BID 10/05/2018 01/02/2019 Inactive Xtampza ER 36 mg capsule sprinkle RxNorm: 2203689 1 Capsule(s) P O BID 10/05/2018 02/12/2019 Inactive omeprazole 40 mg capsule,delayed release RxNorm: 442572 TAKE ONE CAPSULE BY MOUTH DAILY 10/03/2018 12/31/2018 Inactive Duragesic 100 mcg/hr transdermal patch RxNorm: 231653 2 Application TD Q48H for pain 09/30/2018 10/29/2018 Inactive Synthroid 50 mcg tablet RxNorm: 112173 1 Tablet(s) PO QD 09/29/2018 0 11/25/2018 Inactive DC any other synthroid strengths. Should be 50mcg only Synthroid 50 mcg tablet RxNorm: 985810 1 Tablet(s) PO QD 09/29/2018 1 11/28/2017 Inactive furosemide 40 mg tablet RxNorm: 773294 2 Tablet(s) PO Q AM for 1 week then every other day for 2 weeks 09/27/2018 10/12/2018 Inactive fluoxetine 40 mg capsule RxNorm: 022512 2 Capsule(s) PO QD 09/27/20 18 10/17/2018 Inactive potassium chloride ER 20 mEq tablet,extended release RxNorm: 898303 2 Tablet(s) PO QD for 1 week then every other day for 2 weeks 09/27/2018 2018 Inactive ProAir HFA 90 mcg/actuation aerosol inhaler RxNorm: 5105270 INHALE ONE PUFF BY MOUTH EVERY 4 HOURS FOR WHEEZING OR SHORTNESS OF BREATH 09/26/201811/23 Inactive Synthroid 75 mcg tablet RxNorm: 095252 1 Tablet(s) PO QD 09/09/2018 1 Inactive Synthroid 75 mcg tablet RxNorm: 128414 1 Tablet(s) PO QD 09/09/2018 1 11/28/2017 Inactive furosemide 40 mg tablet RxNorm: 794101 1 Tablet(s) PO QD 09/06/2018 1 Inactive potassium chloride ER 20 mEq tablet,extended release RxNorm: 108183 1 Tablet(s) PO QD 09/06/2018 09/19/2018 Inactive Duragesic 100 mcg/hr transdermal patch RxNorm: 786482 2 Application TD Q48H for pain 08/30/2018 09/28/2018 Inactive gabapentin 300 mg capsule RxNorm: 699680 TAKE ONE CAPSULE BY [facility] TWICE A DAY 08/23/2018 12/20/2018 Inactive Daliresp 500 mcg tablet RxNorm: 9876436 TAKE ONE TABLET BY MOUTH DAILY 08/23/2018 01/19/2019 Inactive Pulmicort 1 mg/2 mL suspension for nebulization RxNorm: 6168 19 USE ONE VIAL VIA NEBULIZER BY MOUTH TWICE A DAY 08/23/2018 07/11/2019 Inactive Synthroid 88 mcg tablet RxNorm: 060754 1 Tablet(s) PO QD 08/19/2018 Inactive Medrol (Aníbal) 4 mg tablets in a dose pack RxNorm: 192659 Tablet(s) PO take as directed 08/16/2018 09/05/2018 Inactive Relistor 150 mg tablet RxNorm: 3473718 3 Tablet(s) PO QD 08/16/2018 1 Inactive Zithromax Z-Aníbal 250 mg tablet RxNorm: 130713 Tablet(s) PO take as directed 08/16/2018 09/05/2018 Inactive cyclobenzaprine 10 mg tablet RxNorm: 608285 1 Tablet(s) PO TID as needed 08/16/2018 11/08/2018 Inactive Synthroid 88 mcg tablet RxNorm: 785743 1 Tablet(s) PO Q D NEEDS UPDATED LABS BEFORE FURTHER REFILLS 08/08/2018 08/19/2018 Inactive Premarin 0.45 mg tablet RxNorm: 120321 1 Tablet(s) PO QD 08/03/2018 0 01/31/2019 Inactive fluoxetine 20 mg capsule RxNorm: 160992 TAKE ONE CAPSULE BY BENOIT TH DAILY 08/03/2018 09/26/2018 Inactive Xtampza ER 36 mg capsule sprinkle RxNorm: 0313742 1 Capsule(s) P O BID 08/03/2018 09/01/2018 Inactive metformin ER 500 mg tablet,extended release 24 hr RxNorm: 86 0975 1 Tablet(s) PO QD 08/03/2018 10/31/2018 Inactive Symbicort 160 mcg-4.5 mcg/actuation HFA aerosol inhaler RxNo rm: 3073871 2 Puff(s) INH BID 08/03/2018 01/29/2019 Inactive Duragesic 100 mcg/hr transdermal patch RxNorm: 400324 2 Application TD Q48H for pain 07/29/2018 08/27/2018 Inactive ProAir HFA 90 mcg/actuation aerosol inhaler RxNorm: 166955 INHALE TWO PUFFS BY MOUTH EVERY 4 HOURS FOR WHEEZING OR SHORTNESS OF BREATH 07/27/201802/2018 Inactive Relistor 150 mg tablet RxNorm: 5587429 3 Tablet(s) PO QD 07/20/2018 0 08/15/2018 Inactive metformin ER 500 mg tablet,extended release 24 hr RxNorm: 86 0975 TAKE ONE TABLET BY MOUTH DAILY 07/08/2018 08/02/2018 Inactive fluoxetine 40 mg capsule RxNorm: 179703 TAKE ONE CAPSULE BY BENOIT TH EVERY MORNING 07/08/2018 10/05/2018 Inactive Xtampza ER 18 mg capsule sprinkle RxNorm: 6667341 1 Capsule(s) P O BID 07/08/2018 08/02/2018 Inactive Relistor 150 mg tablet RxNorm: 3119460 3 Tablet(s) PO QD 07/08/2018 0 07/12/2018 Inactive Synthroid 88 mcg tablet RxNorm: 486536 1 Tablet(s) PO Q D NEEDS UPDATED LABS BEFORE FURTHER REFILLS 06/23/2018 07/07/2018 Inactive fluoxetine 40 mg capsule RxNorm: 471791 TAKE ONE CAPSULE BY BENOIT EVERY MORNING 06/15/2018 09/26/2018 Inactive orphenadrine citrate ER 100 mg tablet,extended release RxNor m: 790721 TAKE ONE TABLET BY MOUTH TWICE A DAY FOR MUSCLE SPASM 06/15/2018 08/15/2018 [place] Duragesic 100 mcg/hr transdermal patch RxNorm: 608398 2 Application TD Q48H for pain 05/30/2018 06/28/2018 Inactive ProAir HFA 90 mcg/actuation aerosol inhaler RxNorm: 480740 INHALE TWO PUFFS BY MOUTH EVERY 4 HOURS FOR WHEEZING OR SHORTNESS OF BREATH 05/19/20180 03/2018 Inactive Chantix Continuing Month Box 1 mg tablet RxNorm: 536712 TAKE ONE TABLET BY MOUTH TWICE A DAY 05/19/2018 08/15/2018 Inactive oxycodone 10 mg tablet RxNorm: 5399261 1-2 Tablet(s) PO QID as n eeded for pain 05/19/2018 07/07/2018 Inactive gabapentin 300 mg capsule RxNorm: 331800 TAKE ONE CAPSULE BY MO [facility] TWICE A DAY 05/18/2018 07/16/2018 Inactive ProAir HFA 90 mcg/actuation aerosol inhaler RxNorm: 399469 INHALE TWO PUFFS BY MOUTH EVERY 4 HOURS FOR WHEEZING OR SHORTNESS OF BREATH 05/04/201804/23 Inactive Augmentin 500 mg-125 mg tablet RxNorm: 983048 1 Tablet(s) PO BID 05/03/2018 Inactive oxycodone 10 mg tablet RxNorm: 4944337 1-2 Tablet(s) PO QID as n eeded for pain 04/21/2018 05/18/2018 Inactive Synthroid 88 mcg tablet RxNorm: 136410 1 Tablet(s) PO QD 04/15/2018 0 08/08/2018 Inactive Symbicort 160 mcg-4.5 mcg/actuation HFA aerosol inhaler RxNo rm: 2256331 2 Puff(s) INH BID 04/15/2018 04/10/2019 Inactive Premarin 0.45 mg tablet RxNorm: 011630 1 Tablet(s) PO QD 04/15/2018 0 08/03/2018 Inactive ProAir HFA 90 mcg/actuation aerosol inhaler RxNorm: 967999 2 Puff(s) INH Q4H prn for wheezing or shortness of breath 04/15/2018 05/03/2018 Inactive metformin ER 500 mg tablet,extended release 24 hr RxNorm: 86 0975 1 Tablet(s) PO QD 04/11/2018 07/07/2018 Inactive omeprazole 40 mg capsule,delayed release RxNorm: 211442 TAKE ONE CAPSULE BY MOUTH DAILY 04/10/2018 06/08/2018 Inactive Synthroid 88 mcg tablet RxNorm: 928808 1 Tablet(s) PO QD 04/04/2018 0 04/14/2018 Inactive Synthroid 88 mcg tablet RxNorm: 130941 1 Tablet(s) PO QD 04/04/2018 0 04/03/2018 Inactive orphenadrine citrate ER 100 mg tablet,extended release RxNor m: 946516 1 Tablet(s) PO BID for muscle spasm 04/04/2018 05/03/2018 Inactive metformin ER 500 mg tablet,extended release 24 hr RxNorm: 86 0975 1 Tablet(s) PO QD NEEDS UPDATED LABS 03/31/2018 04/11/2018 Inactive doxycycline hyclate 100 mg capsule RxNorm: 6626972 1 Capsule(s) PO BID 03/31/2018 04/09/2018 Inactive prednisone 20 mg tablet RxNorm: 785509 3 Tablet(s) PO T ID for 3 days then 1 po BID for 3 days then one daily for 3 days 03/31/2018 07/06/2018 Inactiv e Chantix Continuing Month Box 1 mg tablet RxNorm: 860551 TAKE ONE TABLET BY MOUTH TWICE A DAY 03/25/2018 03/30/2018 Inactive oxycodone 10 mg tablet RxNorm: 6407575 1-2 Tablet(s) PO QID as n eeded for pain 03/21/2018 04/20/2018 Inactive Daliresp 500 mcg tablet RxNorm: 7858831 1 Tablet(s) PO QD 03/15/2018 08/22/2018 Inactive metformin ER 500 mg tablet,extended release 24 hr RxNorm: 86 0975 1 Tablet(s) PO QD NEEDS UPDATED LABS 03/14/2018 03/31/2018 Inactive nystatin 100,000 unit/mL oral suspension RxNorm: 699013 5 Chio liter(s) PO QID 03/02/2018 03/15/2018 Inactive nystatin 100,000 unit/mL oral suspension RxNorm: 211297 5 Chio liter(s) PO QID 03/02/2018 03/01/2018 Inactive oxycodone 10 mg tablet RxNorm: 8391001 1-2 Tablet(s) PO QID as n eeded for pain 02/16/2018 03/20/2018 Inactive fluoxetine 20 mg capsule RxNorm: 427164 1 Capsule(s) PO QD 02/15/20 18 08/02/2018 Inactive metformin ER 500 mg tablet,extended release 24 hr RxNorm: 86 0975 1 Tablet(s) PO QD Needs updated labs 02/14/2018 03/14/2018 Inactive cefdinir 300 mg capsule RxNorm: 816284 1 Capsule(s) PO BID 01/27/20 18 02/04/2018 Inactive orphenadrine citrate ER 100 mg tablet,extended release RxNor m: 624049 1 Tablet(s) PO BID for muscle spasm 01/26/2018 04/04/2018 Inactive gabapentin 300 mg capsule RxNorm: 339711 1 Capsule(s) PO BID 201704/17/2018 Inactive oxycodone 10 mg tablet RxNorm: 8106038 1-2 Tablet(s) PO QID as n eeded for pain 01/17/2018 02/15/2018 Inactive Duragesic 100 mcg/hr transdermal patch RxNorm: 533523 2 Application TD Q48H for pain 01/17/2018 02/15/2018 Inactive gabapentin 300 mg capsule RxNorm: 341023 TAKE ONE CAPSULE BY MO UTH TWICE A DAY 12/20/2017 01/18/2018 Inactive fluoxetine 40 mg capsule RxNorm: 206992 TAKE ONE CAPSULE BY BENOIT TH EVERY MORNING 12/15/2017 03/14/2018 Inactive [employer] Test strips RxNorm: TEST DAILY 11/04/2017 02/01/2018 Inactive gabapentin 300 mg capsule RxNorm: 151212 1 Capsule(s) P O TID replaces BID dosing 10/26/2017 02/22/2018 Inactive oxycodone 10 mg tablet RxNorm: 0830221 1-2 Tablet(s) PO QID as n eeded for pain 10/18/2017 01/16/2018 Inactive Duragesic 100 mcg/hr transdermal patch RxNorm: 936676 2 Application TD Q48H for pain 10/18/2017 11/16/2017 Inactive gabapentin 300 mg capsule RxNorm: 167392 1 Capsule(s) PO BID 201610/25/2017 Inactive Abilify 5 mg tablet RxNorm: 543878 1 Tablet(s) PO QAM 09/23/201702/2017 Inactive gabapentin 300 mg capsule RxNorm: 104833 1 Capsule(s) PO BID 201610/17/2017 Inactive oxycodone 10 mg tablet RxNorm: 8572549 1-2 Tablet(s) PO QID as n eeded for pain 09/15/2017 10/17/2017 Inactive Duragesic 100 mcg/hr transdermal patch RxNorm: 580022 2 Application TD Q48H for pain 09/15/2017 10/14/2017 Inactive Duragesic 100 mcg/hr transdermal patch RxNorm: 868441 2 Application TD Q48H for pain 09/15/2017 10/24/2019 Inactive oxycodone 10 mg tablet RxNorm: 4512867 1-2 Tablet(s) PO QID as n eeded for pain 09/15/2017 08/15/2018 Inactive Daliresp 500 mcg tablet RxNorm: 9870714 1 Tablet(s) PO QD 09/06/2017 03/15/2018 Inactive Ventolin HFA 90 mcg/actuation aerosol inhaler RxNorm: 144166 2 Puff(s) INH Q4H as needed 09/02/2017 05/19/2018 Inactive oxycodone 10 mg tablet RxNorm: 0421366 1-2 Tablet(s) PO QID as n eeded for pain 08/17/2017 09/14/2017 Inactive Duragesic 100 mcg/hr transdermal patch RxNorm: 218537 2 Application TD Q48H for pain 08/17/2017 09/14/2017 Inactive fluoxetine 40 mg capsule RxNorm: 435292 Capsule(s) TAKE ONE CAPSULE BY MOUTH EVERY MORNING 08/17/2017 12/14/2017 Inactive Pulmicort 1 mg/2 mL suspension for nebulization RxNorm: 6168 19 1 Unit Dose INH BID Dx: COPD (J44.9) 08/16/2017 08/22/2018 Inactive gabapentin 300 mg capsule RxNorm: 884153 1 Capsule(s) PO QHS 201610/18/2017 Inactive fluoxetine 20 mg capsule RxNorm: 844697 1 Capsule(s) PO QD 08/12/20 17 02/14/2018 Inactive Abilify 2 mg tablet RxNorm: 651052 1 Tablet(s) PO QD TA KE ONE TABLET BY MOUTH DAILY 08/12/2017 10/25/2017 Inactive metformin ER 500 mg tablet,extended release 24 hr RxNorm: 86 0975 1 Tablet(s) PO QD 08/10/2017 02/14/2018 Inactive Synthroid 112 mcg tablet RxNorm: 340654 1 Tablet(s) PO QD 08/10/2017 04/15/2018 Inactive oxycodone 10 mg tablet RxNorm: 4756260 1-2 Tablet(s) PO QID as n eeded for pain 07/19/2017 08/16/2017 Inactive Duragesic 100 mcg/hr transdermal patch RxNorm: 188182 2 Application TD Q48H for pain 07/19/2017 08/16/2017 Inactive Ventolin HFA 90 mcg/actuation aerosol inhaler RxNorm: 094592 2 Puff(s) INH Q4H as needed 07/12/2017 09/02/2017 Inactive Abilify 2 mg tablet RxNorm: 967675 1 Tablet(s) PO QD TA KE ONE TABLET BY MOUTH DAILY 07/06/2017 08/11/2017 Inactive gabapentin 800 mg tablet RxNorm: 619830 1 Tablet(s) PO TID 06/22/2007/05/2017 Inactive Chantix Starting Month Box 0.5 mg (11)-1 mg (42) table ts in dose pack RxNorm: 800735 TAKE BY MOUTH INSTRUCTED - PER PACKAGE INSTRUCTIONS 06/0707/04/2017 Inactive Ventolin HFA 90 mcg/actuation aerosol inhaler RxNorm: 555654 2 Puff(s) INH Q4H as needed 05/26/2017 07/12/2017 Inactive Duragesic 100 mcg/hr transdermal patch RxNorm: 706494 2 Application TD Q48H for pain 05/19/2017 06/17/2017 Inactive oxycodone 10 mg tablet RxNorm: 3421541 1-2 Tablet(s) PO QID as n eeded for pain 05/19/2017 07/18/2017 Inactive Abilify 2 mg tablet RxNorm: 354094 TAKE ONE TABLET BY MOUTH DAILY 0 05/10/2017 07/05/2017 Inactive Synthroid 112 mcg tablet RxNorm: 347273 1 Tablet(s) PO QD 05/06/2017 08/10/2017 Inactive metformin ER 500 mg tablet,extended release 24 hr RxNorm: 86 0975 1 Tablet(s) PO QD 05/06/2017 08/10/2017 Inactive Topamax 100 mg tablet RxNorm: 108162 1 Tablet(s) PO QHS 05/06/2017 Inactive Premarin 0.45 mg tablet RxNorm: 640366 1 Tablet(s) PO QD 05/06/2017 0 04/15/2018 Inactive orphenadrine citrate ER 100 mg tablet,extended release RxNor m: 862784 1 Tablet(s) PO TID for muscle spasm--replaces methocarbamol 04/29/2017 Inactive oxycodone 10 mg tablet RxNorm: 5970307 1-2 Tablet(s) PO QID as n eeded for pain 04/21/2017 05/18/2017 Inactive Duragesic 100 mcg/hr transdermal patch RxNorm: 725412 2 Application TD Q48H for pain 04/21/2017 05/18/2017 Inactive fluoxetine 40 mg capsule RxNorm: 083171 Capsule(s) TAKE ONE CAPSULE BY MOUTH EVERY MORNING 04/20/2017 08/17/2017 Inactive Ventolin HFA 90 mcg/actuation aerosol inhaler RxNorm: 070197 2 Puff(s) INH Q4H as needed 04/05/2017 05/26/2017 Inactive Symbicort 160 mcg-4.5 mcg/actuation HFA aerosol inhaler RxNo rm: 5041904 2 Puff(s) INH BID 03/30/2017 04/15/2018 Inactive Spiriva with HandiHaler 18 mcg and inhalation capsules RxNor m: 803285 1 Capsule(s) INH QD USING HANDIHALER 03/30/2017 02/12/2019 Inactive Duragesic 100 mcg/hr transdermal patch RxNorm: 798661 2 Application TD Q48H for pain 03/18/2017 04/16/2017 Inactive oxycodone 10 mg tablet RxNorm: 4952092 1-2 Tablet(s) PO QID as n eeded for pain 03/18/2017 04/20/2017 Inactive metformin ER 500 mg tablet,extended release 24 hr RxNorm: 86 0975 Tablet(s) TAKE ONE TABLET BY MOUTH DAILY 03/01/2017 05/06/2017 Inactive Premarin 0.45 mg tablet RxNorm: 571506 Tablet(s) TAKE ONE TABLE T BY MOUTH DAILY 03/01/2017 05/06/2017 Inactive Synthroid 112 mcg tablet RxNorm: 583744 Tablet(s) TAKE ONE TABLET BY MOUTH DAILY 03/01/2017 05/06/2017 Inactive Daliresp 500 mcg tablet RxNorm: 4482269 1 Tablet(s) PO QD 03/01/2017 09/06/2017 Inactive 16.2 mg-0.1037 mg-0.0194 mg tablet RxNorm: 8607876 Tablet(s) PO PRN for gas and cramping 02/23/2017 04/28/2017 Inactive TAKE TWO TABLET S BY MOUTH THREE TIMES A DAY NEEDED FOR GAS AND CRAMPING gabapentin 800 mg tablet RxNorm: 515311 1 Tablet(s) PO TID repl aces 600mg 02/23/2017 04/28/2017 Inactive Duragesic 100 mcg/hr transdermal patch RxNorm: 562756 2 Application TD Q48H for pain 02/17/2017 03/17/2017 Inactive fluoxetine 20 mg capsule RxNorm: 839007 1 Capsule(s) PO QD 02/18/20 17 08/12/2017 Inactive oxycodone 20 mg tablet RxNorm: 6259134 1 Tablet(s) PO QID as nee ded for pain 02/17/2017 03/17/2017 Inactive Ventolin HFA 90 mcg/actuation aerosol inhaler RxNorm: 234050 INHALE TWO PUFFS BY MOUTH EVERY 4 HOURS NEEDED 02/15/2017 04/05/2017 Inactive Silvadene 1 % topical cream RxNorm: 406068 1 Application TOP BI D to burn area 02/01/2017 09/22/2017 Inactive Topamax 100 mg tablet RxNorm: 102719 TAKE ONE TABLET BY MOUTH EVERY NIGHT AT BEDTIME 01/29/2017 05/06/2017 Inactive Chantix Starting Month Box 0.5 mg (11)-1 mg (42) table ts in dose pack RxNorm: 743118 Tablet(s) PO as directed 01/29/2017 06/01/2017 Inactive Abilify 2 mg tablet RxNorm: 368359 TAKE ONE TABLET BY MOUTH DAILY 0 01/26/2017 04/25/2017 Inactive Chantix Starting Month Box 0.5 mg (11)-1 mg (42) table ts in dose pack RxNorm: 111027 Tablet(s) PO as directed 01/20/2017 01/28/2017 Inactive gabapentin 600 mg tablet RxNorm: 716831 1 Tablet(s) PO TID 01/21/20 17 02/22/2017 Inactive Chantix Continuing Month Box 1 mg tablet RxNorm: 452136 1 Table t(s) PO BID 12/31/2016 06/01/2017 Inactive Spiriva with HandiHaler 18 mcg and inhalation capsules RxNor m: 408900 INHALE THE ENTIRE CONTENTS OF 1 CAPSULE ONCE A DAY USING HANDIHALER 12/31/201607/2017 Inactive Synthroid 112 mcg tablet RxNorm: 873777 TAKE ONE TABLET BY MOUT H DAILY 12/30/2016 03/01/2017 Inactive metformin ER 500 mg tablet,extended release 24 hr RxNorm: 86 0975 TAKE ONE TABLET BY MOUTH DAILY 12/30/2016 03/01/2017 Inactive Premarin 0.45 mg tablet RxNorm: 484218 TAKE ONE TABLET BY MOUTH DAILY 12/30/2016 03/01/2017 Inactive omeprazole 40 mg capsule,delayed release RxNorm: 098938 TAKE ONE CAPSULE BY MOUTH DAILY 12/30/2016 01/25/2018 Inactive Ventolin HFA 90 mcg/actuation aerosol inhaler RxNorm: 013085 INHALE TWO PUFFS BY MOUTH EVERY 4 HOURS NEEDED 12/28/2016 02/13/2017 Inactive fluoxetine 40 mg capsule RxNorm: 760593 TAKE ONE CAPSULE BY BENOIT TH EVERY MORNING 12/15/2016 04/20/2017 Inactive Chantix Continuing Month Box 1 mg tablet RxNorm: 628617 TAKE ONE TABLET BY MOUTH TWICE A DAY 12/04/2016 12/31/2016 Inactive doxycycline hyclate 100 mg capsule RxNorm: 6196536 1 Capsule(s) PO BID 12/01/2016 12/07/2016 Inactive Levaquin 750 mg tablet RxNorm: 119877 1 Tablet(s) PO QD 12/01/2016 Inactive Abilify 2 mg tablet RxNorm: 497122 TAKE ONE TABLET BY MOUTH DAILY 0 11/25/2016 11/30/2016 Inactive Ventolin HFA 90 mcg/actuation aerosol inhaler RxNorm: 683034 INHALE TWO PUFFS BY MOUTH EVERY 4 HOURS NEEDED 11/02/2016 12/19/2016 Inactive Chantix Continuing Month Box 1 mg tablet RxNorm: 059698 Tablet(s) PO as directed 10/30/2016 12/03/2016 Inactive Symbicort 160 mcg-4.5 mcg/actuation HFA aerosol inhaler RxNo rm: 4287929 INHALE TWO PUFFS TWO TIMES A DAY 10/30/2016 03/30/2017 Inactive Abilify 2 mg tablet RxNorm: 363080 1 Tablet(s) PO QD 10/27/201611/24 Inactive amoxicillin 500 mg capsule RxNorm: 293256 1 Capsule(s) PO TID 10/1410/23/2016 Inactive amoxicillin 500 mg capsule RxNorm: 268980 1 Capsule(s) PO TID 10/1410/13/2016 Inactive Synthroid 112 mcg tablet RxNorm: 680978 TAKE ONE TABLET BY MOUT H DAILY 09/28/2016 12/29/2016 Inactive Topamax 100 mg tablet RxNorm: 009354 TAKE ONE TABLET BY MOUTH EVERY NIGHT AT BEDTIME 09/28/2016 01/28/2017 Inactive Premarin 0.45 mg tablet RxNorm: 321561 TAKE ONE TABLET BY MOUTH DAILY 09/28/2016 12/29/2016 Inactive metformin ER 500 mg tablet,extended release 24 hr RxNorm: 86 0975 TAKE ONE TABLET BY MOUTH DAILY 09/28/2016 12/29/2016 Inactive Ventolin HFA 90 mcg/actuation aerosol inhaler RxNorm: 673210 INHALE TWO PUFFS BY MOUTH EVERY 4 HOURS NEEDED 09/22/2016 10/23/2016 Inactive Pulmicort 1 mg/2 mL suspension for nebulization RxNorm: 6168 19 1 Unit Dose INH BID Dx: COPD (J44.9) 09/10/2016 08/16/2017 Inactive Pulmicort 1 mg/2 mL suspension for nebulization RxNorm: 6168 19 1 Unit Dose INH BID 09/10/2016 09/09/2016 Inactive Brovana 15 mcg/2 mL solution for nebulization RxNorm: 935443 1 Unit Dose INH BID Dx: COPD (J44.9) 09/10/2016 01/25/2018 Inactive Brovana 15 mcg/2 mL solution for nebulization RxNorm: 274463 1 Unit Dose INH BID 09/10/2016 09/09/2016 Inactive ipratropium-albuterol 0.5 mg-3 mg(2.5 mg base)/3 mL ne bulization soln RxNorm: 5269829 1 Unit Dose INH Q4H as needed Dx: COPD (J44.9) 09/10/2016 0 02/12/2019 Inactive orphenadrine citrate ER 100 mg tablet,extended release RxNor m: 472089 1 Tablet(s) PO BID for muscle spasm--replaces methocarbamol 09/09/2016 Inactive Chantix Continuing Month Box 1 mg tablet RxNorm: 230066 Tablet(s) PO as directed 09/09/2016 10/30/2016 Inactive orphenadrine citrate ER 100 mg tablet,extended release RxNor m: 410360 1 Tablet(s) PO BID for muscle spasm 09/09/2016 09/08/2016 Inactive Spiriva with HandiHaler 18 mcg and inhalation capsules RxNor m: 392810 INHALE THE ENTIRE CONTENTS OF 1 CAPSULE ONCE A DAY USING HANDIHALER 09/01/201605/2017 Inactive Daliresp 500 mcg tablet RxNorm: 0680521 1 Tablet(s) PO QD 08/27/2016 03/01/2017 Inactive prednisone 20 mg tablet RxNorm: 627382 3 Tablet(s) PO T ID for 3 days then 1 po BID for 3 days then one daily for 3 days 08/26/2016 04/28/2017 Inactiv e Wellbutrin XL 300 mg 24 hr tablet, extended release RxNorm: 870999 TAKE ONE TABLET BY MOUTH EVERY MORNING 07/29/2016 10/26/2016 Inactive gabapentin 600 mg tablet RxNorm: 540389 1 Tablet(s) PO BID 06/26/20 16 12/22/2016 Inactive fluoxetine 40 mg capsule RxNorm: 086249 TAKE ONE CAPSULE BY BENOIT TH EVERY MORNING 06/24/2016 11/20/2016 Inactive Duragesic 100 mcg/hr transdermal patch RxNorm: 278743 2 Application TD Q48H for pain 06/05/2016 07/04/2016 Inactive oxycodone 10 mg tablet RxNorm: 7787194 1-2 Tablet(s) PO QID as n eeded for pain 06/05/2016 03/17/2017 Inactive Belladonna-Phenobarbital 48 mg tablet,extended release RxNor m: 2 Tablet(s) PO TID 06/05/2016 01/19/2017 Inactive Premarin 0.45 mg tablet RxNorm: 809091 TAKE ONE TABLET BY MOUTH DAILY 05/27/2016 09/23/2016 Inactive Topamax 100 mg tablet RxNorm: 231173 TAKE ONE TABLET BY MOUTH EVERY NIGHT AT BEDTIME 05/27/2016 09/27/2016 Inactive Synthroid 112 mcg tablet RxNorm: 358065 TAKE ONE TABLET BY MOUT H DAILY 05/27/2016 09/23/2016 Inactive metformin ER 500 mg tablet,extended release 24 hr RxNorm: 86 0975 TAKE ONE TABLET BY MOUTH DAILY 05/27/2016 09/23/2016 Inactive Symbicort 160 mcg-4.5 mcg/actuation HFA aerosol inhaler RxNo rm: 4230890 INHALE TWO PUFFS TWO TIMES A DAY 05/27/2016 10/23/2016 Inactive Ventolin HFA 90 mcg/actuation aerosol inhaler RxNorm: 506453 INHALE TWO PUFFS BY MOUTH EVERY 4 HOURS NEEDED 05/21/2016 07/07/2016 Inactive omeprazole 40 mg capsule,delayed release RxNorm: 713690 1 Capsu le(s) PO QD 05/06/2016 08/03/2016 Inactive metformin ER 500 mg tablet,extended release 24 hr RxNorm: 86 0975 TAKE ONE TABLET BY MOUTH DAILY 04/23/2016 05/22/2016 Inactive methocarbamol 750 mg tablet RxNorm: 406470 2 Tablet(s) PO TID as needed for muscle spasm 04/23/2016 09/08/2016 Inactive Synthroid 112 mcg tablet RxNorm: 748238 TAKE ONE TABLET BY MOUT H DAILY 04/23/2016 05/22/2016 Inactive Spiriva with HandiHaler 18 mcg and inhalation capsules RxNor m: 053930 INHALE THE ENTIRE CONTENTS OF 1 CAPSULE ONCE A DAY USING HANDIHALER 04/09/201608/2016 Inactive Diflucan 100 mg tablet RxNorm: 023013 1 Tablet(s) PO QD 04/08/2016 Inactive doxycycline hyclate 100 mg capsule RxNorm: 4374241 1 Capsule(s) PO BID 04/08/2016 04/17/2016 Inactive doxycycline hyclate 100 mg capsule RxNorm: 2087303 1 Capsule(s) PO BID 04/08/2016 04/07/2016 Inactive Diflucan 100 mg tablet RxNorm: 428266 1 Tablet(s) PO QD 04/08/2016 Inactive ondansetron HCl 4 mg tablet RxNorm: 028618 1 Tablet(s) PO Q4H as needed for nausea and vomiting 04/08/2016 09/22/2017 Inactive gabapentin 600 mg tablet RxNorm: 142855 TAKE ONE TABLET BY MOUT H TWICE A DAY 03/24/2016 06/25/2016 Inactive Synthroid 112 mcg tablet RxNorm: 072811 TAKE ONE TABLET BY MOUT H DAILY 02/25/2016 04/22/2016 Inactive Levaquin 500 mg tablet RxNorm: 289287 1 Tablet(s) PO QD 01/23/2016 Inactive prednisone 20 mg tablet RxNorm: 983994 1 Tablet(s) PO T ID for 3 days then 1 po BID for 3 days then one daily for 3 days 01/23/2016 08/25/2016 Inactiv e [employer] Ultra Test strips RxNorm: TEST BLOOD SUGAR ONCE DAILY 250.00 01/09/2016 11/04/2017 Inactive methocarbamol 750 mg tablet RxNorm: 334273 2 Tablet(s) PO TID as needed for muscle spasm 01/09/2016 04/23/2016 Inactive lactulose 10 gram/15 mL oral solution RxNorm: 288013 [address](s) PO QD 01/09/2016 09/22/2017 Inactive TAKE 1 TABLESPOON BY MOUTH ONCE DAILY metformin ER 500 mg tablet,extended release 24 hr RxNorm: 86 0975 1 Tablet(s) PO QD 12/26/2015 04/22/2016 Inactive fluoxetine 20 mg capsule RxNorm: 778719 1 Capsule(s) PO QD 12/23/19 16 06/19/2016 Inactive Premarin 0.45 mg tablet RxNorm: 341312 TAKE ONE TABLET BY MOUTH DAILY 12/23/2015 05/20/2016 Inactive fluoxetine 40 mg capsule RxNorm: 160223 1 Capsule(s) PO QD 12/23/19 16 06/19/2016 Inactive TAKE ONE CAPSULE BY MOUTH EV JANKI MORNING azithromycin 500 mg tablet RxNorm: 719756 1 Tablet(s) PO QD 016 12/19/2015 Inactive Zofran 4 mg tablet RxNorm: 465753 1 Tablet(s) PO Q4H prn nausea /vomiting 12/13/2015 03/30/2018 Inactive azithromycin 500 mg tablet RxNorm: 833608 1 Tablet(s) PO QD 016 12/12/2015 Inactive Duragesic 100 mcg/hr transdermal patch RxNorm: 138735 2 Application TD Q48H for pain 12/09/2015 01/07/2016 Inactive oxycodone 10 mg tablet RxNorm: 3064711 1-2 Tablet(s) PO QID as n eeded for pain 12/09/2015 06/04/2016 Inactive Bactroban 2 % topical cream RxNorm: 664912 Application TOP BID 11/2208/25/2016 Inactive doxycycline hyclate 100 mg capsule RxNorm: 4586387 1 Capsule(s) PO BID 12/03/2015 12/12/2015 Inactive Topamax 100 mg tablet RxNorm: 810784 TAKE ONE TABLET BY MOUTH EVERY NIGHT AT BEDTIME 11/25/2015 05/22/2016 Inactive Symbicort 160 mcg-4.5 mcg/actuation HFA aerosol inhaler RxNo rm: 4214830 INHALE TWO PUFFS TWO TIMES A DAY 11/25/2015 05/22/2016 Inactive Synthroid 112 mcg tablet RxNorm: 499087 Tablet(s) TAKE ONE TABLET BY MOUTH DAILY 11/25/2015 02/22/2016 Inactive omeprazole 40 mg capsule,delayed release RxNorm: 889791 1 Capsu le(s) PO QD 11/12/2015 05/05/2016 Inactive oxycodone 10 mg tablet RxNorm: 5583563 1-2 Tablet(s) PO QID as n eeded for pain 11/05/2015 12/08/2015 Inactive Duragesic 100 mcg/hr transdermal patch RxNorm: 497299 2 Application TD Q48H for pain 11/05/2015 12/04/2015 Inactive omeprazole 40 mg capsule,delayed release RxNorm: 027594 1 Capsu le(s) PO QD 10/07/2015 11/11/2015 Inactive Januvia 100 mg tablet RxNorm: 743740 TAKE ONE TABLET BY MOUTH DAILY 09/11/2015 12/25/2015 Inactive Zithromax 500 mg tablet RxNorm: 527596 1 Tablet(s) PO QD 09/10/2015 1 Inactive prednisone 20 mg tablet RxNorm: 848436 1 Tablet(s) PO T ID for 3 days then 1 po BID for 3 days then one daily for 3 days 09/10/2015 08/25/2016 Inactiv e Wellbutrin XL 300 mg 24 hr tablet, extended release RxNorm: 463915 1 Tablet(s) PO QAM 09/10/2015 12/02/2015 Inactive Topamax 100 mg tablet RxNorm: 309315 TAKE ONE TABLET BY MOUTH EVERY NIGHT AT BEDTIME 09/02/2015 11/24/2015 Inactive Synthroid 112 mcg tablet RxNorm: 323948 TAKE ONE TABLET BY MOUT H DAILY 09/02/2015 11/25/2015 Inactive methocarbamol 750 mg tablet RxNorm: 001176 2 Tablet(s) PO TID as needed for muscle spasm 08/15/2015 01/09/2016 Inactive Wellbutrin XL 150 mg 24 hr tablet, extended release RxNorm: 255275 TAKE ONE TABLET BY MOUTH EVERY MORNING 08/13/2015 08/13/2015 Inactive gabapentin 600 mg tablet RxNorm: 579730 1 Tablet(s) PO BID 08/13/20 15 02/08/2016 Inactive Wellbutrin XL 300 mg 24 hr tablet, extended release RxNorm: 624962 1 Tablet(s) PO QAM 08/06/2015 09/09/2015 Inactive Wellbutrin XL 150 mg 24 hr tablet, extended release RxNorm: 612702 1 Tablet(s) PO QAM 07/18/2015 08/05/2015 Inactive prednisone 20 mg tablet RxNorm: 332085 1 Tablet(s) PO BID 07/18/2015 07/22/2015 Inactive doxycycline hyclate 100 mg tablet,delayed release RxNorm: 43 4018 1 Tablet(s) PO BID 07/18/2015 07/27/2015 Inactive pravastatin 40 mg tablet RxNorm: 871097 1 Tablet(s) PO QD NEEDS FASTING LAB 07/15/2015 07/14/2015 Inactive pravastatin 40 mg tablet RxNorm: 555862 1 Tablet(s) PO QD NEEDS FASTING LAB 07/15/2015 01/25/2018 Inactive Ventolin HFA 90 mcg/actuation aerosol inhaler RxNorm: 776586 2 Puff(s) INH Q4H 07/08/2015 07/07/2015 Inactive prn Premarin 0.45 mg tablet RxNorm: 961420 1 Tablet(s) PO QD 07/01/2015 0 12/22/2015 Inactive pravastatin 40 mg tablet RxNorm: 330776 1 Tablet(s) PO QD NEEDS FASTING LAB 06/14/2015 07/15/2015 Inactive Ventolin HFA 90 mcg/actuation aerosol inhaler RxNorm: 3039253 2 Puff(s) INH Q4H 06/06/2015 07/08/2015 Inactive prn albuterol sulfate 2.5 mg/3 mL (0.083 %) solution for n ebulization RxNorm: 399207 1 Unit Dose INH QID 05/30/2015 No Stop Date Active Duragesic 100 mcg/hr transdermal patch RxNorm: 292233 2 Application TD Q48H for pain 04/29/2015 05/28/2015 Inactive gabapentin 600 mg tablet RxNorm: 450379 1 Tablet(s) PO BID 04/11/20 15 08/13/2015 Inactive Onglyza 5 mg tablet RxNorm: 194909 1 Tablet(s) PO QD for blood suga r 04/10/2015 04/15/2015 Inactive [Brand Copay Card: RxBIN:[id number] PCN:CN RxGRP:[id number] ID#:[id number]] methocarbamol 750 mg tablet RxNorm: 064788 2 Tablet(s) PO TID as needed for muscle spasm 03/28/2015 08/15/2015 Inactive pravastatin 40 mg tablet RxNorm: 933512 1 Tablet(s) PO QD 03/19/2015 03/18/2015 Inactive pravastatin 40 mg tablet RxNorm: 267211 1 Tablet(s) PO QD 03/19/2015 06/14/2015 Inactive lactulose 10 gram/15 mL oral solution RxNorm: 958925 [address]s) PO QD 03/07/2015 01/09/2016 Inactive TAKE 1 TABLESPOON BY MOUTH ONCE DAILY oxycodone 20 mg tablet RxNorm: 1304547 1 Tablet(s) PO QID as nee ded for pain 03/05/2015 07/08/2015 Inactive Topamax 100 mg tablet RxNorm: 221753 1 Tablet(s) PO QHS TAKE ONE TABLET BY MOUTH AT BEDTIME 02/25/2015 02/12/2019 Inactive metformin ER 500 mg tablet,extended release 24 hr RxNorm: 86 0975 1 Tablet(s) PO QD 02/11/2015 03/04/2015 Inactive take one tablet by mouth every day Daliresp 500 mcg tablet RxNorm: 9138159 1 Tablet(s) PO QD 02/11/2015 08/09/2015 Inactive Endocet 10 mg-325 mg tablet RxNorm: 0914812 1 Tablet(s) PO Q4H as needed for pain 01/23/2015 01/23/2015 Inactive gabapentin 600 mg tablet RxNorm: 374176 1 Tablet(s) PO BID 01/23/2004/11/2015 Inactive methocarbamol 750 mg tablet RxNorm: 125297 2 Tablet(s) PO TID as needed for muscle spasm 01/15/2015 02/13/2015 Inactive fluoxetine 40 mg capsule RxNorm: 896137 1 Capsule(s) PO QD 01/14/20 15 12/23/2015 Inactive TAKE ONE CAPSULE BY MOUTH EV JANKI MORNING fluoxetine 20 mg capsule RxNorm: 197060 1 Capsule(s) PO QD 01/14/20 15 12/23/2015 Inactive Premarin 0.45 mg tablet RxNorm: 795184 1 Tablet(s) PO QD 01/02/2015 0 07/01/2015 Inactive Endocet 10 mg-325 mg tablet RxNorm: 2020598 1-2 Tablet(s) PO Q4H 02/12/2019 Inactive PRN PAIN Duragesic 100 mcg/hr transdermal patch RxNorm: 204376 2 Application TD Q48H for pain 12/25/2014 01/23/2015 Inactive Topamax 100 mg tablet RxNorm: 658639 1 Tablet(s) PO QHS TAKE ONE TABLET BY MOUTH AT BEDTIME 12/25/2014 02/24/2015 Inactive Tudorza Pressair 400 mcg/actuation breath activated RxNorm: 3522216 1 BID INHALE ONE PUFF INTO LUNGS TWO TIMES A DAY 12/17/2014 05/15/2015 Inactive Endocet 10 mg-325 mg tablet RxNorm: 5648119 1-2 Tablet(s) PO Q4H 12/19/2014 Inactive PRN PAIN Duragesic 100 mcg/hr transdermal patch RxNorm: 854108 2 Application TD Q48H for pain 11/20/2014 12/24/2014 Inactive [employer] Ultra Test strips RxNorm: TEST BLOOD SUGAR ONCE DAILY 250.00 11/16/2014 01/08/2016 Inactive omeprazole 40 mg capsule,delayed release RxNorm: 390874 1 Capsu le(s) PO QD 11/13/2014 11/12/2015 Inactive metformin ER 500 mg tablet,extended release 24 hr RxNorm: 86 0975 1 Tablet(s) PO QD 11/12/2014 02/11/2015 Inactive take one tablet by mouth every day Symbicort 160 mcg-4.5 mcg/actuation HFA aerosol inhaler RxNo rm: 1720117 2 Puff(s) INH BID 11/12/2014 03/11/2015 Inactive INHALE 2 PUFFS O RALLY TWO TIMES A DAY gabapentin 800 mg tablet RxNorm: 560596 1 Tablet(s) PO QD TAKE ONE TABLET BY MOUTH ONCE A DAY 10/22/2014 01/01/2015 Inactive Endocet 10 mg-325 mg tablet RxNorm: 8595994 1-2 Tablet(s) PO Q4H 11/15/2014 Inactive PRN PAIN Duragesic 100 mcg/hr transdermal patch RxNorm: 955325 2 Application TD Q48H for pain 10/17/2014 11/19/2014 Inactive gabapentin 800 mg tablet RxNorm: 461881 1 Tablet(s) PO QD TAKE ONE TABLET BY MOUTH ONCE A DAY 10/04/2014 10/21/2014 Inactive Premarin 0.9 mg tablet RxNorm: 270874 1 Tablet(s) PO QD TAKE ONE TABLET BY MOUTH ONCE A DAY 10/04/2014 01/01/2015 Inactive Spiriva with HandiHaler 18 mcg & inhalation capsules RxNorm: 506738 1 Capsule(s) INH QD 10/03/2014 04/30/2015 Inactive Levaquin 500 mg tablet RxNorm: 910094 1 Tablet(s) PO QD 10/03/2014 Inactive prednisone 20 mg tablet RxNorm: 499021 1 Tablet(s) PO QD 10/03/2014 1 12/09/2013 Inactive Duragesic 100 mcg/hr transdermal patch RxNorm: 726997 2 Application TD Q48H for pain 09/18/2014 10/16/2014 Inactive Endocet 10 mg-325 mg tablet RxNorm: 8479344 1-2 Tablet(s) PO Q4H 10/16/2014 Inactive PRN PAIN Synthroid 112 mcg tablet RxNorm: 697349 1 Tablet(s) QD 09/10/2014 Inactive Synthroid 112 mcg tablet RxNorm: 295983 TAKE ONE TABLET BY MOUTH ONE TIME A DAY. NEEDS LABS 09/10/2014 02/06/2015 Inactive omeprazole 40 mg capsule,delayed release RxNorm: 300982 1 Capsu le(s) PO QD 09/03/2014 11/13/2014 Inactive omeprazole 40 mg capsule,delayed release RxNorm: 733539 1 Capsu le(s) PO QD 09/03/2014 09/02/2014 Inactive Spiriva with HandiHaler 18 mcg & inhalation capsules RxNorm: 806927 1 Capsule(s) INH QD 08/27/2014 10/02/2014 Inactive gabapentin 600 mg tablet RxNorm: 756756 1 Tablet(s) PO BID 08/27/20 14 10/22/2014 Inactive Endocet 10 mg-325 mg tablet RxNorm: 3272956 1-2 Tablet(s) PO Q4H 09/17/2014 Inactive PRN PAIN fentanyl 100 mcg/hr transdermal patch RxNorm: 290683 1 Unit Dos e TD QD 08/21/2014 09/19/2014 Inactive Daliresp 500 mcg tablet RxNorm: 8632900 1 Tablet(s) PO QD 08/13/2014 02/11/2015 Inactive Synthroid 112 mcg tablet RxNorm: 509681 TAKE ONE TABLET BY MOUTH ONE TIME A DAY. NEEDS LABS 08/10/2014 09/10/2014 Inactive Endocet 10 mg-325 mg tablet RxNorm: 9318793 1-2 Tablet(s) PO Q4H 08/17/2014 Inactive PRN PAIN Duragesic 100 mcg/hr transdermal patch RxNorm: 914017 2 Application TD Q48H for pain 07/19/2014 09/17/2014 Inactive fluoxetine 40 mg capsule RxNorm: 448678 1 Capsule(s) PO QD 07/17/20 14 01/14/2015 Inactive TAKE ONE CAPSULE BY MOUTH EV JANKI MORNING fluoxetine 20 mg capsule RxNorm: 111214 1 Capsule(s) PO QD 07/17/20 14 01/14/2015 Inactive Spiriva with HandiHaler 18 mcg & inhalation capsules RxNorm: 268096 1 Capsule(s) INH QD 07/17/2014 08/26/2014 Inactive INHALE CONTENTS OF 1 CAPSULE(S) WITH HANDIHALER ONCE DAILY Zofran 4 mg tablet RxNorm: 522349 1 Tablet(s) PO Q4H prn nausea 07/25/2014 Inactive Synthroid 112 mcg tablet RxNorm: 534510 1 Tablet(s) PO QD 07/09/2014 07/09/2014 Inactive methocarbamol 750 mg tablet RxNorm: 552494 2 Tablet(s) PO TID as needed for muscle spasm 07/09/2014 09/06/2014 Inactive Synthroid 112 mcg tablet RxNorm: 188193 1 Tablet(s) PO QD - nee d labs 07/09/2014 08/07/2014 Inactive Medrol (Aníbal) 4 mg tablets in a dose pack RxNorm: 064011 6 Tablet(s) PO QD --then as directed 07/03/2014 07/08/2014 Inactive Tudorza Pressair 400 mcg/actuation breath activated RxNorm: 9022112 1 Puff(s) INH BID 07/03/2014 12/17/2014 Inactive cefdinir 300 mg capsule RxNorm: 658558 1 Capsule(s) PO BID 07/03/20 14 07/12/2014 Inactive Topamax 100 mg tablet RxNorm: 559598 Tablet(s) TAKE ONE TABLET BY MOUTH AT BEDTIME 07/02/2014 02/25/2015 Inactive Duragesic 100 mcg/hr transdermal patch RxNorm: 522871 2 Application TD Q48H for pain 06/25/2014 07/18/2014 Inactive Endocet 10 mg-325 mg tablet RxNorm: 3355312 1-2 Tablet(s) PO Q4H 07/18/2014 Inactive PRN PAIN metformin ER 500 mg tablet,extended release 24 hr RxNorm: 86 0975 1 Tablet(s) PO QD Needs labs 06/18/2014 07/01/2014 Inactive take one tablet by mouth every day Duragesic 100 mcg/hr transdermal patch RxNorm: 419685 2 Application TD Q48H for pain 05/22/2014 06/24/2014 Inactive Synthroid 112 mcg tablet RxNorm: 445729 1 Tablet(s) PO QD 05/22/2014 07/09/2014 Inactive Endocet 10 mg-325 mg tablet RxNorm: 8044131 1-2 Tablet(s) PO Q4H 06/20/2014 Inactive PRN PAIN Endocet 10 mg-325 mg tablet RxNorm: 4181197 1-2 Tablet(s) PO Q4H 05/21/2014 Inactive PRN PAIN Duragesic 100 mcg/hr transdermal patch RxNorm: 420420 2 Application TD Q48H for pain 04/25/2014 05/21/2014 Inactive Daliresp 500 mcg tablet RxNorm: 9188767 1 Tablet(s) PO QD 04/24/2014 08/13/2014 Inactive Symbicort 160 mcg-4.5 mcg/actuation HFA aerosol inhaler RxNo rm: 5976443 2 Puff(s) INH BID 04/24/2014 08/21/2014 Inactive INHALE 2 PUFFS O RALLY TWO TIMES A DAY metformin ER 500 mg tablet,extended release 24 hr RxNorm: 86 0975 1 Tablet(s) PO QD 04/24/2014 11/12/2014 Inactive TAKE ONE TABLET BY MOUTH EVERY DAY [AttnRPh:Saving Apply/Adjudicate RxGRP:LDMGRP RxBIN:[id number] RxPCN:2012 PCode:01 ID#:[id number]] Symbicort 160 mcg-4.5 mcg/actuation HFA aerosol inhaler RxNo rm: 7029800 2 Puff(s) INH BID 04/24/2014 11/12/2014 Inactive INHALE 2 PUFFS O RALLY TWO TIMES A DAY Premarin 0.9 mg tablet RxNorm: 032214 1 Tablet(s) PO QD 04/24/2014 Inactive TAKE ONE TABLET BY MOUTH EVERY DAY metformin ER 500 mg tablet,extended release 24 hr RxNorm: 86 0975 1 Tablet(s) PO QD Needs labs 04/24/2014 06/18/2014 Inactive TAKE ONE TABLET BY MOUTH EVERY DAY [AttnRPh:Saving Apply/Adjudicate RxGRP:LDMGRP RxBIN:[id number] RxPCN:2012 PCode:01 ID#:[id number]] gabapentin 800 mg tablet RxNorm: 069328 1 Tablet(s) PO QD 04/24/2014 10/04/2014 Inactive TAKE ONE TABLET BY MOUTH EVERY DAY Topamax 100 mg tablet RxNorm: 161400 1 Tablet(s) PO QHS 04/17/2014 Inactive Topamax 100 mg tablet RxNorm: 286982 TAKE ONE TABLET BY MOUTH A T BEDTIME 04/17/2014 07/01/2014 Inactive Tudorza Pressair 400 mcg/actuation breath activated RxNorm: 0292830 1 Puff(s) INH BID 04/11/2014 07/02/2014 Inactive Duragesic 100 mcg/hr transdermal patch RxNorm: 864029 2 Application TD Q48H for pain 03/27/2014 04/24/2014 Inactive Endocet 10 mg-325 mg tablet RxNorm: 5467292 1-2 Tablet(s) PO Q4H 04/24/2014 Inactive PRN PAIN Robaxin 750 mg tablet RxNorm: 012890 2 Tablet(s) PO TID as need ed for spasm 02/23/2014 03/28/2015 Inactive Duragesic 100 mcg/hr transdermal patch RxNorm: 977914 2 Application TD Q48H for pain 02/23/2014 No Stop Date Active Endocet 10 mg-325 mg tablet RxNorm: 0637896 1-2 Tablet(s) PO Q4H 03/23/2014 Inactive PRN PAIN Synthroid 112 mcg tablet RxNorm: 397584 1 Tablet(s) PO QD TAKE ONE TABLET BY MOUTH EVERY DAY 02/15/2014 05/22/2014 Inactive Zithromax 500 mg tablet RxNorm: 160476 1 Tablet(s) PO QD 01/30/2014 0 02/05/2014 Inactive Diflucan 100 mg tablet RxNorm: 815984 1 Tablet(s) PO QD 01/30/2014 Inactive prednisone 20 mg tablet RxNorm: 866768 1 Tablet(s) PO BID 01/30/2014 02/05/2014 Inactive fluoxetine 40 mg capsule RxNorm: 943910 1 Capsule(s) PO QD 01/23/20 14 07/16/2014 Inactive TAKE ONE CAPSULE BY MOUTH EV JANKI MORNING fluoxetine 40 mg capsule RxNorm: 516189 1 Capsule(s) PO QD 01/23/20 14 07/17/2014 Inactive TAKE ONE CAPSULE BY MOUTH EV JANKI MORNING cefdinir 300 mg capsule RxNorm: 014115 1 Capsule(s) PO BID 01/16/20 14 01/29/2014 Inactive Zithromax 500 mg tablet RxNorm: 213116 1 Tablet(s) PO QD 01/16/2014 0 01/22/2014 Inactive prednisone 20 mg tablet RxNorm: 190437 1 Tablet(s) PO BID 01/16/2014 01/22/2014 Inactive Spiriva with HandiHaler 18 mcg and inhalation capsules RxNor m: 225980 1 Capsule(s) INH QD 12/18/2013 07/17/2014 Inactive INHALE CONTENT S OF 1 CAPSULE(S) WITH HANDIHALER ONCE DAILY fluoxetine 20 mg capsule RxNorm: 190163 1 Capsule(s) PO QD 12/18/19 14 06/15/2014 Inactive Spiriva with HandiHaler 18 mcg & inhalation capsules RxNorm: 172356 1 Capsule(s) INH QD 12/18/2013 06/15/2014 Inactive INHALE CONTENTS OF 1 CAPSULE(S) WITH HANDIHALER ONCE DAILY fluoxetine 20 mg capsule RxNorm: 115411 1 Capsule(s) PO QD 12/18/19 14 07/17/2014 Inactive cefdinir 300 mg capsule RxNorm: 410928 2 Capsule(s) PO QD 12/12/2013 12/21/2013 Inactive Duragesic 100 mcg/hr transdermal patch RxNorm: 817681 2 Application TD Q48H for pain 12/08/2013 12/07/2013 Inactive Topamax 100 mg tablet RxNorm: 411645 1 Tablet(s) PO QHS 12/04/2013 Inactive Endocet 10 mg-325 mg tablet RxNorm: 5502499 1-2 Tablet(s) PO Q4H 12/26/2013 Inactive PRN PAIN Robaxin 750 mg tablet RxNorm: 847794 2 Tablet(s) PO TID as need ed for spasm 11/07/2013 01/05/2014 Inactive gabapentin 800 mg tablet RxNorm: 710978 1 Tablet(s) PO QD 10/16/2013 04/24/2014 Inactive TAKE ONE TABLET BY MOUTH EVERY DAY Symbicort 160 mcg-4.5 mcg/actuation HFA aerosol inhaler RxNo rm: 2647998 2 Puff(s) INH BID 10/16/2013 04/24/2014 Inactive INHALE 2 PUFFS O RALLY TWO TIMES A DAY Premarin 0.9 mg tablet RxNorm: 759995 1 Tablet(s) PO QD 10/16/2013 Inactive TAKE ONE TABLET BY MOUTH EVERY DAY metformin ER 500 mg tablet,extended release 24 hr RxNorm: 86 0975 1 Tablet(s) PO QD 10/16/2013 04/24/2014 Inactive TAKE ONE TABLET BY MOUTH EVERY DAY Daliresp 500 mcg tablet RxNorm: 7086360 1 Tablet(s) PO QD 10/16/2013 04/24/2014 Inactive Robaxin 750 mg tablet RxNorm: 130186 2 Tablet(s) PO TID as need ed for spasm 10/10/2013 11/06/2013 Inactive Duragesic 100 mcg/hr transdermal patch RxNorm: 765232 2 Application TD Q48H for pain 10/09/2013 No Stop Date Active Soma 350 mg tablet RxNorm: 735445 1 Tablet(s) PO TID 09/27/201310/09 Inactive TAKE ONE TABLET BY MOUTH THREE TIMES A D AY lactulose 10 gram/15 mL oral solution RxNorm: 295150 [address](s) PO QD 09/13/2013 03/07/2015 Inactive TAKE 1 TABLESPOON BY MOUTH ONCE DAILY Duragesic 100 mcg/hr transdermal patch RxNorm: 765094 2 Application TD Q48H for pain 09/06/2013 No Stop Date Active Endocet 10 mg-325 mg tablet RxNorm: 6492806 1-2 Tablet(s) PO Q4H 09/27/2013 Inactive PRN PAIN lancets 28 gauge RxNorm: Miscellaneous As needed for blo od glucose sticks 08/24/2013 No Stop Date Active 16.2 mg-0.1037 mg-0.0194 mg tablet RxNorm: 3548539 Tablet(s) PO PRN for gas and cramping 08/24/2013 01/19/2017 Inactive TAKE TWO TABLET S BY MOUTH THREE TIMES A DAY NEEDED FOR GAS AND CRAMPING Topamax 100 mg tablet RxNorm: 803217 1 Tablet(s) PO QHS 07/31/2013 Inactive Diflucan 100 mg tablet RxNorm: 397530 1 Tablet(s) PO QD 07/27/2013 Inactive cefdinir 300 mg capsule RxNorm: 326412 1 Capsule(s) PO BID 07/26/20 13 08/08/2013 Inactive Daliresp 500 mcg tablet RxNorm: 9416969 1 Tablet(s) PO QD 07/25/2013 10/15/2013 Inactive fluoxetine 40 mg capsule RxNorm: 396019 1 Capsule(s) PO QD 07/25/20 13 01/22/2014 Inactive TAKE ONE CAPSULE BY MOUTH EV JANKI MORNING Senokot-S 8.6 mg-50 mg tablet RxNorm: 5772535 1 Tablet(s) PO BID 10/25/2013 Inactive doxycycline hyclate 100 mg capsule RxNorm: 1007488 1 Capsule(s) PO BID 06/28/2013 07/07/2013 Inactive prednisone 20 mg tablet RxNorm: 183099 1 Tablet(s) PO BID 06/28/2013 07/04/2013 Inactive Zofran 4 mg tablet RxNorm: 369503 1 Tablet(s) PO Q4H prn nausea 03/201307/05/2013 Inactive Spiriva with HandiHaler 18 mcg & inhalation capsules RxNorm: 700393 1 Capsule(s) INH QD 06/26/2013 12/18/2013 Inactive INHALE CONTENTS OF 1 CAPSULE(S) WITH HANDIHALER ONCE DAILY Synthroid 112 mcg tablet RxNorm: 601037 1 Tablet(s) PO QD TAKE ONE TABLET BY MOUTH EVERY DAY 06/19/2013 02/15/2014 Inactive fluoxetine 20 mg capsule RxNorm: 985275 1 Capsule(s) PO QD 06/19/20 13 12/18/2013 Inactive Ventolin HFA 90 mcg/actuation Aerosol Inhaler RxNorm: 5457400 2 Puff(s) INH Q4H 06/05/2013 No Stop Date Active prn Soma 350 mg tablet RxNorm: 217901 1 Tablet(s) PO TID 06/05/201307/04 Inactive TAKE ONE TABLET BY MOUTH THREE TIMES A D AY prednisone 20 mg tablet RxNorm: 475516 1 Tablet(s) PO QD 05/31/2013 0 06/06/2013 Inactive Topamax 100 mg tablet RxNorm: 457111 1 Tablet(s) PO QHS 05/22/2013 Inactive Levaquin 500 mg tablet RxNorm: 686217 1 Tablet(s) PO QD 05/03/2013 Inactive Diflucan 100 mg tablet RxNorm: 106126 1 Tablet(s) PO QD 05/03/2013 Inactive Daliresp 500 mcg tablet RxNorm: 5632557 1 Tablet(s) PO QD 05/01/2013 07/24/2013 Inactive Daliresp 500 mcg tablet RxNorm: 9867298 1 Tablet(s) PO QD 05/01/2013 04/30/2013 Inactive gabapentin 800 mg tablet RxNorm: 855552 1 Tablet(s) PO QD 04/10/2013 10/06/2013 Inactive TAKE ONE TABLET BY MOUTH EVERY DAY metformin ER 500 mg tablet,extended release 24 hr RxNorm: 86 0977 1 Tablet(s) PO QD 04/10/2013 10/06/2013 Inactive TAKE ONE TABLET BY MOUTH EVERY DAY Premarin 0.9 mg tablet RxNorm: 315300 1 Tablet(s) PO QD 04/10/2013 Inactive TAKE ONE TABLET BY MOUTH EVERY DAY Symbicort 160 mcg-4.5 mcg/actuation HFA aerosol inhaler RxNo rm: 6898938 2 Puff(s) INH BID 04/10/2013 10/06/2013 Inactive INHALE 2 PUFFS O RALLY TWO TIMES A DAY Synthroid 112 mcg tablet RxNorm: 177901 1 Tablet(s) PO QD TAKE ONE TABLET BY MOUTH EVERY DAY 04/10/2013 06/18/2013 Inactive Ventolin HFA 90 mcg/actuation Aerosol Inhaler RxNorm: 7190799 2 Puff(s) INH Q4H 04/10/2013 No Stop Date Active prn fentanyl 100 mcg/hr transdermal patch RxNorm: 792986 1 Unit Dos e TD QD 04/03/2013 05/02/2013 Inactive Endocet 10 mg-325 mg tablet RxNorm: 5818435 1-2 Tablet(s) PO Q4H 05/02/2013 Inactive PRN PAIN Topamax 100 mg tablet RxNorm: 342463 1 Tablet(s) PO QHS 03/13/2013 Inactive Reglan 10 mg tablet RxNorm: 282225 1 Tablet(s) PO QID b efore meals and at bedtime 03/13/2013 04/09/2015 Inactive fluoxetine 20 mg capsule RxNorm: 361203 1 Capsule(s) PO QD 02/28/20 13 05/27/2013 Inactive Ventolin HFA 90 mcg/actuation Aerosol Inhaler RxNorm: 5642416 2 Puff(s) INH Q4H 02/13/2013 No Stop Date Active prn fluoxetine 40 mg capsule RxNorm: 881421 1 Capsule(s) PO QD 01/31/20 13 07/24/2013 Inactive TAKE ONE CAPSULE BY MOUTH EV JANKI MORNING Soma 350 mg tablet RxNorm: 278703 1 Tablet(s) PO TID 01/20/201302/18 Inactive TAKE ONE TABLET BY MOUTH THREE TIMES A D AY Endocet 10 mg-325 mg tablet RxNorm: 4746684 1-2 Tablet(s) PO Q4H 02/06/2013 Inactive PRN PAIN MS Contin 200 mg tablet,extended release RxNorm: 105990 1 Table t(s) PO BID 01/18/2013 02/06/2013 Inactive Ventolin HFA 90 mcg/actuation Aerosol Inhaler RxNorm: 8661339 2 Puff(s) INH Q4H 01/04/2013 No Stop Date Active prn Spiriva with HandiHaler 18 mcg & inhalation capsules RxNorm: 589770 1 Capsule(s) INH QD 12/29/2012 06/25/2013 Inactive INHALE CONTENTS OF 1 CAPSULE(S) WITH HANDIHALER ONCE DAILY Spiriva with HandiHaler 18 mcg & inhalation capsules RxNorm: 484614 1 Capsule(s) INH QD 12/26/2012 12/28/2012 Inactive INHALE CONTENTS OF 1 CAPSULE(S) WITH HANDIHALER ONCE DAILY Synthroid 112 mcg tablet RxNorm: 580663 Tablet(s) PO TA KE ONE TABLET BY MOUTH EVERY DAY 12/26/2012 04/09/2013 Inactive Endocet 10 mg-325 mg tablet RxNorm: 4445443 1-2 Tablet(s) PO Q4H 01/17/2013 Inactive PRN PAIN MS Contin 200 mg tablet,extended release RxNorm: 639966 1 Table t(s) PO BID 12/21/2012 01/17/2013 Inactive fluoxetine 20 mg capsule RxNorm: 486677 1 Capsule(s) PO QD 12/06/19 13 02/26/2013 Inactive Synthroid 112 mcg tablet RxNorm: 910595 1 Tablet(s) PO QD 12/06/2012 02/12/2019 Inactive TAKE ONE TABLET BY MOUTH EVERY DAY Ventolin HFA 90 mcg/actuation Aerosol Inhaler RxNorm: 4328136 2 Puff(s) INH Q4H 12/06/2012 No Stop Date Active prn Reglan 10 mg tablet RxNorm: 786571 1 Tablet(s) PO QID b efore meals and at bedtime 11/24/2012 03/12/2013 Inactive Topamax 100 mg tablet RxNorm: 202842 1 Tablet(s) PO QHS 11/16/2012 Inactive Ventolin HFA 90 mcg/actuation Aerosol Inhaler RxNorm: 7703594 2 Puff(s) INH Q4H 11/09/2012 No Stop Date Active prn gabapentin 800 mg tablet RxNorm: 208993 1 Tablet(s) PO QD 10/27/2012 04/09/2013 Inactive TAKE ONE TABLET BY MOUTH EVERY DAY metformin ER 500 mg tablet,extended release 24 hr RxNorm: 86 0977 1 Tablet(s) PO QD 10/27/2012 04/09/2013 Inactive TAKE ONE TABLET BY MOUTH EVERY DAY Symbicort 160 mcg-4.5 mcg/actuation HFA Aerosol Inhaler RxNo rm: 3312692 2 Puff(s) INH BID 10/27/2012 04/09/2013 Inactive INHALE 2 PUFFS O RALLY TWO TIMES A DAY Premarin 0.9 mg tablet RxNorm: 993627 1 Tablet(s) PO QD 10/27/2012 Inactive TAKE ONE TABLET BY MOUTH EVERY DAY Endocet 10 mg-325 mg tablet RxNorm: 9944952 1-2 Tablet(s) PO Q4H 11/24/2012 Inactive PRN PAIN MS Contin 200 mg tablet,extended release RxNorm: 653079 1 Table t(s) PO BID 10/26/2012 11/24/2012 Inactive Soma 350 mg tablet RxNorm: 750066 1 Tablet(s) PO TID 10/04/201211/02 Inactive TAKE ONE TABLET BY MOUTH THREE TIMES A D AY Ventolin HFA 90 mcg/actuation Aerosol Inhaler RxNorm: 8212073 2 Puff(s) INH Q4H 10/03/2012 No Stop Date Active prn Daliresp 500 mcg tablet RxNorm: 8138156 1 Tablet(s) PO QD 09/28/2012 09/27/2012 Inactive Daliresp 500 mcg tablet RxNorm: 7938924 1 Tablet(s) PO QD 09/28/2012 04/25/2013 Inactive fluoxetine 20 mg capsule RxNorm: 474504 1 Capsule(s) PO QD 09/05/2012/06/2012 Inactive Topamax 50 mg tablet RxNorm: 696616 Tablet(s) PO for 1w k then 1 po q HS for 1wk then 2 po q HS 08/29/2012 09/27/2012 Inactive TAKE 1/2 TABLET BY MOUTH AT BEDTIME FOR 1 WEEK, THEN 1 TABLET AT BEDTIME FOR 1 WEEK, THEN 2 TABLETS AT BEDTIME Topamax 100 mg tablet RxNorm: 264923 1 Tablet(s) PO QHS 08/29/2012 Inactive Ventolin HFA 90 mcg/actuation Aerosol Inhaler RxNorm: 8262445 2 Puff(s) INH Q4H 08/19/2012 No Stop Date Active prn Ventolin HFA 90 mcg/actuation Aerosol Inhaler RxNorm: 3782963 2 Puff(s) INH Q4H 08/15/2012 No Stop Date Active prn Synthroid 112 mcg tablet RxNorm: 597083 1 Tablet(s) PO QD 08/10/2012 11/07/2012 Inactive TAKE ONE TABLET BY MOUTH EVERY DAY Synthroid 112 mcg tablet RxNorm: 107819 1 Tablet(s) PO QD 08/01/2012 08/09/2012 Inactive TAKE ONE TABLET BY MOUTH EVERY DAY Reglan 10 mg tablet RxNorm: 679176 1 Tablet(s) PO QID b efore meals and at bedtime 08/01/2012 11/23/2012 Inactive fluoxetine 40 mg capsule RxNorm: 654772 1 Capsule(s) PO QD 08/01/2001/27/2013 Inactive TAKE ONE CAPSULE BY MOUTH EV JANKI MORNING Ventolin HFA 90 mcg/actuation Aerosol Inhaler RxNorm: 5738998 2 Puff(s) INH Q4H 08/01/2012 No Stop Date Active prn Soma 350 mg tablet RxNorm: 368118 1 Tablet(s) PO TID 07/20/201208/18 Inactive TAKE ONE TABLET BY MOUTH THREE TIMES A D AY Spiriva with HandiHaler 18 mcg & inhalation capsules RxNorm: 484744 1 Capsule(s) INH 07/01/2012 12/25/2012 Inactive INHALE CONTENTS OF 1 CAPSULE(S) WITH HANDIHALER ONCE DAILY Zithromax 250 mg Tab RxNorm: 523305 2 Tablet(s) PO QD 06/28/201206/22 Inactive MS Contin 200 mg tablet,extended release RxNorm: 377207 1 Table t(s) PO BID 06/28/2012 07/27/2012 Inactive Endocet 10 mg-325 mg tablet RxNorm: 9300657 1-2 Tablet(s) PO Q4H 07/27/2012 Inactive PRN PAIN Topamax 100 mg tablet RxNorm: 070675 1 Tablet(s) PO QHS 06/28/2012 Inactive 16.2 mg-0.1037 mg-0.0194 mg tablet RxNorm: 2248889 Tablet(s) PO PRN for gas and cramping 06/08/2012 08/23/2013 Inactive TAKE TWO TABLET S BY MOUTH THREE TIMES A DAY NEEDED FOR GAS AND CRAMPING Ventolin HFA 90 mcg/actuation Aerosol Inhaler RxNorm: 6774419 2 Puff(s) INH Q4H 05/23/2012 No Stop Date Active prn Ventolin HFA 90 mcg/actuation Aerosol Inhaler RxNorm: 0312843 2 Puff(s) INH Q4H 05/11/2012 No Stop Date Active prn Synthroid 112 mcg tablet RxNorm: 372147 1 Tablet(s) PO QD 05/09/2012 07/31/2012 Inactive TAKE ONE TABLET BY MOUTH EVERY DAY gabapentin 800 mg tablet RxNorm: 417300 1 Tablet(s) PO QD 05/09/2012 10/26/2012 Inactive TAKE ONE TABLET BY MOUTH EVERY DAY fluoxetine 40 mg capsule RxNorm: 155593 1 Capsule(s) PO QD 05/09/2007/31/2012 Inactive TAKE ONE CAPSULE BY MOUTH EV JANKI MORNING metformin ER 500 mg tablet,extended release 24 hr RxNorm: 86 0977 1 Tablet(s) PO QD 05/09/2012 10/26/2012 Inactive TAKE ONE TABLET BY MOUTH EVERY DAY Premarin 0.9 mg tablet RxNorm: 713297 1 Tablet(s) PO QD 05/09/2012 Inactive TAKE ONE TABLET BY MOUTH EVERY DAY Symbicort 160 mcg-4.5 mcg/actuation HFA Aerosol Inhaler RxNo rm: 9810992 2 Puff(s) INH BID 05/09/2012 10/26/2012 Inactive INHALE 2 PUFFS O RALLY TWO TIMES A DAY Endocet 10 mg-325 mg Tab RxNorm: 5113855 1-2 Tablet(s) PO Q4H 04/2705/26/2012 Inactive PRN PAIN MS Contin 200 mg Tab RxNorm: 822214 1 Tablet(s) PO BID 04/26/201202/2012 Inactive Ventolin HFA 90 mcg/actuation Aerosol Inhaler RxNorm: 8041267 2 Puff(s) INH Q4H 04/25/2012 05/10/2012 Inactive prn Soma 350 mg tablet RxNorm: 354717 2 Tablet(s) PO TID 04/19/201207/19 Inactive TAKE ONE TABLET BY MOUTH THREE TIMES A D AY Ventolin HFA 90 mcg/actuation Aerosol Inhaler RxNorm: 1824925 2 Puff(s) INH Q4H 04/12/2012 04/24/2012 Inactive prn Reglan 10 mg tablet RxNorm: 122519 1 Tablet(s) PO QID b efore meals and at bedtime 04/11/2012 07/31/2012 Inactive MS Contin 200 mg Tab RxNorm: 398679 1 Tablet(s) PO BID 03/30/201202/2012 Inactive Endocet 10 mg-325 mg Tab RxNorm: 3101256 1-2 Tablet(s) PO Q4H 03/3004/26/2012 Inactive PRN PAIN MS Contin 200 mg Tab RxNorm: 161828 1 Tablet(s) PO BID 03/02/201206/2012 Inactive Endocet 10 mg-325 mg Tab RxNorm: 4776580 1-2 Tablet(s) PO Q4H 03/0203/29/2012 Inactive PRN PAIN Daliresp 500 mcg tablet RxNorm: 5007780 1 Tablet(s) PO QD 03/01/2012 09/28/2012 Inactive MS Contin 200 mg Tab RxNorm: 083156 1 Tablet(s) PO BID 02/02/201208/2012 Inactive Endocet 10 mg-325 mg Tab RxNorm: 9905039 1-2 Tablet(s) PO Q4H 02/0103/01/2012 Inactive PRN PAIN fluoxetine 40 mg capsule RxNorm: 399816 1 Capsule(s) PO QD 02/02/2008/01/2012 Inactive TAKE ONE CAPSULE BY MOUTH EV JANKI MORNING Synthroid 112 mcg Tab RxNorm: 582872 1 Tablet(s) PO QD 01/18/2012 Inactive TAKE ONE TABLET BY MOUTH EVERY DAY lactulose 10 gram/15 mL oral solution RxNorm: 406034 [address]s) PO QD 01/18/2012 No Stop Date Active TAKE 1 TABLESPOON BY MOUTH ONCE DAILY Ventolin HFA 90 mcg/actuation Aerosol Inhaler RxNorm: 5665211 2 Puff(s) INH Q4H 01/18/2012 04/11/2012 Inactive prn MS Contin 200 mg Tab RxNorm: 382073 1 Tablet(s) PO BID 01/05/201210/2012 Inactive Endocet 10 mg-325 mg Tab RxNorm: 8670762 1-2 Tablet(s) PO Q4H 01/0502/01/2012 Inactive PRN PAIN ProAir HFA 90 mcg/Actuation Aerosol Inhaler RxNorm: 0420781 2 Pu ff(s) INH Q4H 12/21/2011 No Stop Date Active prn for wheezing or shortness of breath Spiriva with HandiHaler 18 mcg & inhalation Caps RxNorm: 580 261 1 Capsule(s) INH 12/21/2011 06/30/2012 Inactive INHALE CONTENTS OF 1 CAPSULE(S) WITH HANDIHALER ONCE DAILY Reglan 10 mg Tab RxNorm: 865950 1 Tablet(s) PO QID before meals and at bedtime 12/21/2011 04/10/2012 Inactive Synthroid 112 mcg Tab RxNorm: 320108 1 Tablet(s) PO QD 12/21/2011 Inactive TAKE ONE TABLET BY MOUTH EVERY DAY Endocet 10 mg-325 mg Tab RxNorm: 1269513 1-2 Tablet(s) PO Q4H 11/2512/24/2011 Inactive PRN PAIN MS Contin 200 mg Tab RxNorm: 258146 1 Tablet(s) PO BID 11/25/201112/2011 Inactive lactulose 10 gram/15 mL Oral Soln RxNorm: 421325 Milliliter(s) PO 1 No Stop Date Active TAKE 1 TABLESPOON BY MOUTH O NCE DAILY lactulose 10 gram/15 mL Oral Soln RxNorm: 314929 Milliliter(s) PO 1 12/12/2010 11/20/2011 Inactive TAKE 1 TABLESPOON BY MOUTH O NCE DAILY Premarin 0.9 mg Tab RxNorm: 189984 1 Tablet(s) PO QD 10/12/201105/08 Inactive TAKE ONE TABLET BY MOUTH EVERY DAY fluoxetine 20 mg capsule RxNorm: 361117 1 Capsule(s) PO QD 10/12/20 11 09/05/2012 Inactive TAKE ONE CAPSULE BY MOUTH EV JANKI DAY Synthroid 112 mcg Tab RxNorm: 442750 1 Tablet(s) PO QD 10/12/2011 Inactive TAKE ONE TABLET BY MOUTH EVERY DAY metformin ER 500 mg 24 hr Tab RxNorm: 172611 1 Tablet(s) PO QD 09/2311/10/2011 Inactive TAKE ONE TABLET BY MOUTH GLYNN RY DAY Synthroid 112 mcg Tab RxNorm: 319158 1 Tablet(s) PO QD 10/12/2011 Inactive TAKE ONE TABLET BY MOUTH EVERY DAY metformin ER 500 mg 24 hr Tab RxNorm: 508019 1 Tablet(s) PO QD 09/2310/11/2011 Inactive TAKE ONE TABLET BY MOUTH GLYNN DAY Prevacid 30 mg Cap RxNorm: 112047 Capsule(s) PO 10/12/2011 01/25/2012 Inactive TAKE ONE CAPSULE BY MOUTH EVERY DAY Symbicort 160 mcg-4.5 mcg/actuation HFA Aerosol Inhaler RxNo rm: 3581461 2 Puff(s) INH BID 10/12/2011 05/08/2012 Inactive INHALE 2 PUFFS O RALLY TWO TIMES A DAY gabapentin 800 mg Tab RxNorm: 876474 1 Tablet(s) PO QD 10/12/2011 Inactive TAKE ONE TABLET BY MOUTH EVERY DAY MS Contin 200 mg Tab RxNorm: 626351 1 Tablet(s) PO BID 09/23/201111/2010 Inactive Endocet 10 mg-325 mg Tab RxNorm: 6596454 1-2 Tablet(s) PO Q4H 09/2310/22/2011 Inactive PRN PAIN Endocet 10 mg-325 mg Tab RxNorm: 9160122 1-2 Tablet(s) PO Q4H 08/2109/19/2011 Inactive PRN PAIN MS Contin 200 mg Tab RxNorm: 560741 1 Tablet(s) PO BID 08/21/2011 Inactive Diflucan 100 mg Tab RxNorm: 753755 1 Tablet(s) PO QD 08/10/201108/16 Inactive cefdinir 300 mg Cap RxNorm: 418283 2 Capsule(s) PO QD 08/10/201107/24 Inactive Reglan 10 mg Tab RxNorm: 201361 1 Tablet(s) PO AC & HS 07/15/2011 Inactive Endocet 10 mg-325 mg Tab RxNorm: 1766173 1-2 Tablet(s) PO Q4H 07/1508/13/2011 Inactive PRN PAIN One Touch Ultra Test strips RxNorm: Miscellaneous BID 06/11/2011 1 01/16/2014 Inactive TEST TWO TIMES A DAY lactulose 10 gram/15 mL Oral Soln RxNorm: 896155 Milliliter(s) PO 0 06/10/2011 10/11/2011 Inactive TAKE 1 TABLESPOON BY MOUTH O NCE DAILY Chantix Continuing Month Aníbal 1 mg Tab RxNorm: 632085 Tablet(s) PO 0 06/10/2011 11/02/2011 Inactive TAKE DIRECTED - PER PACK[employer] GE INSTRUCTIONS fluoxetine 40 mg Cap RxNorm: 271624 Capsule(s) PO 06/10/2011 02/02/20 Inactive TAKE ONE CAPSULE BY MOUTH EVERY MORNING Chantix Continuing Month Aníbal 1 mg Tab RxNorm: 209732 Ta blet(s) PO TAKE DIRECTED - PER PACKAGE INSTRUCTIONS 05/13/2011 06/09/2011 Inactive Soma 350 mg Tab RxNorm: 580667 Tablet(s) PO TAKE ON E TABLET BY MOUTH THREE TIMES A DAY 05/13/2011 04/18/2012 Inactive Chantix Continuing Month Aníbal 1 mg Tab RxNorm: 982790 Ta blet(s) PO as directed per package instructions. 04/22/2011 05/12/2011 Inactive Symbicort 160 mcg-4.5 mcg/Actuation HFA Aerosol Inhaler RxNo rm: 8760231 HFA Aerosol Inhaler INH INHALE 2 PUFFS ORALLY TWO TIMES A DAY 04/13/2011 Inactive Synthroid 112 mcg Tab RxNorm: 084364 Tablet(s) PO TAKE ONE TABLET BY MOUTH EVERY DAY 04/13/2011 10/12/2011 Inactive Premarin 0.9 mg Tab RxNorm: 970418 Tablet(s) PO TAKE ON E TABLET BY MOUTH EVERY DAY 04/13/2011 10/12/2011 Inactive gabapentin 800 mg Tab RxNorm: 824353 Tablet(s) PO TAKE ONE TABLET BY MOUTH EVERY DAY 04/13/2011 10/12/2011 Inactive Prevacid 30 mg Cap RxNorm: 757889 1 Capsule(s) PO QD 04/13/201110/11 Inactive Spiriva with HandiHaler 18 mcg & inhalation Caps RxNorm: 580 261 Capsule(s) INH INHALE CONTENTS OF 1 CAPSULE(S) WITH HANDIHALER ONCE DAILY 04/13/2011 12/21/2011 Inactive metformin ER 500 mg 24 hr Tab RxNorm: 158822 Tablet(s) PO TAKE ONE TABLET BY MOUTH EVERY DAY 04/13/2011 10/12/2011 Inactive Soma 350 mg Tab RxNorm: 078509 1 Tablet(s) PO QID 03/30/2011 02/13/20 19 Inactive fluoxetine 20 mg Cap RxNorm: 484494 Capsule(s) PO TAKE ONE CAPSULE BY MOUTH EVERY DAY 03/25/2011 10/12/2011 Inactive cefdinir 300 mg Cap RxNorm: 125230 2 Capsule(s) PO QD 03/19/201105/2011 Inactive 16.2 mg-0.1037 mg-0.0194 mg Tab RxNorm: 3342118 2 Tablet(s) PO TID PRN for gas and cramping 03/16/2011 07/13/2011 Inactive Soma 350 mg Tab RxNorm: 997080 2 Tablet(s) PO TID 03/16/2011 03/29/20 11 Inactive Chantix Starting Month Aníbal 0.5 mg (11)-1 mg (3x14) Tab s in a Dose Pack RxNorm: 187895 Tablet(s) PO as directed 03/02/2011 No Stop Date Active diazepam 10 mg Tab RxNorm: 063999 1 Tablet(s) PO BID 02/10/201101/19 Inactive Zofran 4 mg tablet RxNorm: 127623 1 Tablet(s) PO Q4H prn nausea 02/16/2011 Inactive Diflucan 100 mg Tab RxNorm: 715576 1 Tablet(s) PO QD 01/18/201101/24 Inactive Premarin 0.625 mg/g Vaginal Cream RxNorm: 170775 VAG In sert 1gm vaginally at bedtime 3 times weekly 01/18/2011 02/12/2019 Inactive loratadine 10 mg Tab RxNorm: 465313 1 Tablet(s) PO QD 12/17/201003/2012 Inactive Spiriva with HandiHaler 18 mcg & inhalation Caps RxNorm: 580 261 1 Capsule(s) INH QD 12/17/2010 04/12/2011 Inactive Diflucan 100 mg Tab RxNorm: 782836 1 Tablet(s) PO QD 12/17/201012/23 Inactive diazepam 10 mg Tab RxNorm: 264258 1 Tablet(s) PO BID and PRN 201002/12/2019 Inactive One Touch Ultra Test Strips RxNorm: InVt BID Zainab t blood sugar at least twice daily. 11/11/2010 06/11/2011 Inactive fluoxetine 40 mg Cap RxNorm: 103560 1 Capsule(s) PO QAM 11/11/2010 Inactive diazepam 10 mg Tab RxNorm: 972247 1 Tablet(s) PO BID and PRN 200911/12/2010 Inactive Bactrim DS 800 mg-160 mg Tab RxNorm: 985654 1 Tablet(s) PO BID 09/2210/15/2010 Inactive fluoxetine 20 mg Cap RxNorm: 538676 1 Capsule(s) PO QD 10/02/201008/2011 Inactive Bactrim DS 800 mg-160 mg Tab RxNorm: 888887 1 Tablet(s) PO BID 01/201010/03/2010 Inactive Zofran 4 mg Tab RxNorm: 489484 1 Tablet(s) PO Q4H prn nausea 200910/16/2010 Inactive 16.2 mg-0.1037 mg-0.0194 mg Tab RxNorm: 3878585 2 Tablet(s) PO TID PRN for gas and cramping 09/17/2010 10/21/2010 Inactive Gabapentin 800 mg Tab RxNorm: 488911 1 Tablet(s) PO QD 09/16/2010 Inactive ProAir HFA 90 mcg/Actuation Aerosol Inhaler RxNorm: 3907981 2 Puff(s) INH Q4H prn shortness of breath 09/15/2010 12/13/2010 Inactive gabapentin 800 mg Tab RxNorm: 546783 1 Tablet(s) PO QD 09/15/2010 Inactive Prevacid 30 mg Cap RxNorm: 344657 1 Capsule(s) PO QD 09/15/201004/12 Inactive loratadine 10 mg Tab RxNorm: 074151 1 Tablet(s) PO QD 09/15/201011/23 Inactive Premarin 0.9 mg Tab RxNorm: 299778 1 Tablet(s) PO QD 09/15/201004/12 Inactive Synthroid 112 mcg Tab RxNorm: 233378 1 Tablet(s) PO QD 09/15/2010 Inactive metformin ER 500 mg 24 hr Tab RxNorm: 225762 1 Tablet(s) PO QD 08/2304/12/2011 Inactive Symbicort 160 mcg-4.5 mcg/Actuation Inhalation HFA Aer osol Inhaler RxNorm: 1772540 2 Puff(s) INH BID 09/15/2010 04/12/2011 Inactive diazepam 10 mg Tab RxNorm: 859989 1 Tablet(s) PO BID and PRN 200910/13/2010 Inactive Phentermine 37.5 mg Cap RxNorm: 991214 1 Capsule(s) PO QD 09/02/2010 11/02/2011 Inactive ProAir HFA 90 mcg/Actuation Aerosol Inhaler RxNorm: 3983834 2 Puff(s) INH Q4H prn shortness of breath 08/07/2010 No Stop Date Active Premarin 0.9 mg Tab RxNorm: 556627 1 Tablet(s) PO QD 08/07/201009/14 Inactive Loratadine 10 mg Tab RxNorm: 691980 1 Tablet(s) PO QD 08/07/201008/23 Inactive Lactulose 10 gram/15 mL Oral Soln RxNorm: 037011 1 Unit Dose PO QD 08/07/2010 02/12/2019 Inactive Zofran 4 mg Tab RxNorm: 946528 1 Tablet(s) PO Q4H prn nausea 2009 No Stop Date Active Gabapentin 800 mg Tab RxNorm: 895309 1 Tablet(s) PO QD 08/07/2010 Inactive Synthroid 112 mcg Tab RxNorm: 964108 1 Tablet(s) PO QD 08/07/2010 Inactive Metformin ER 500 mg 24 hr Tab RxNorm: 271769 1 Tablet(s) PO QD 07/2309/14/2010 Inactive Vitamin D 1,000 unit Tab RxNorm: 799837 1 Tablet(s) PO TID 08/07/2002/12/2019 Inactive Symbicort 160 mcg-4.5 mcg/Actuation Inhalation HFA Aer osol Inhaler RxNorm: 5410673 2 Puff(s) INH BID 08/07/2010 09/14/2010 Inactive Prevacid 30 mg Cap RxNorm: 932990 1 Capsule(s) PO QD 08/07/201009/14 Inactive Metformin ER 500 mg 24 hr Tab RxNorm: 234590 1 Tablet(s) PO QD 06/2308/06/2010 Inactive Vitamin D 1,000 unit Tab RxNorm: 564309 1 Tablet(s) PO TID 07/14/2008/06/2010 Inactive Synthroid 112 mcg Tab RxNorm: 700533 1 Tablet(s) PO QD 07/14/2010 Inactive Lactulose 10 gram/15 mL Oral Soln RxNorm: 310653 1 Unit Dose PO QD 07/14/2010 08/06/2010 Inactive Levaquin 500 mg Tab RxNorm: 353006 1 Tablet(s) PO QD 07/14/201007/27 Inactive Premarin 0.9 mg Tab RxNorm: 838084 1 Tablet(s) PO QD 07/14/201008/06 Inactive ProAir HFA 90 mcg/Actuation Aerosol Inhaler RxNorm: 0857877 2 Puff(s) INH Q4H prn shortness of breath 07/14/2010 No Stop Date Active Prevacid 30 mg Cap RxNorm: 885169 1 Capsule(s) PO QD 07/14/201008/06 Inactive Zofran 4 mg Tab RxNorm: 169759 1 Tablet(s) PO Q4H prn nausea 2009 No Stop Date Active Symbicort 160 mcg-4.5 mcg/Actuation Inhalation HFA Aer osol Inhaler RxNorm: 0790718 2 Puff(s) INH BID 07/14/2010 08/06/2010 Inactive Loratadine 10 mg Tab RxNorm: 672636 1 Tablet(s) PO QD 07/14/201007/23 Inactive Gabapentin 800 mg Tab RxNorm: 170441 1 Tablet(s) PO QD 07/14/2010 Inactive Metformin ER 500 mg 24 hr Tab RxNorm: 248940 1 Tablet(s) PO 010 07/13/2010 Inactive Diazepam 10 mg Tab RxNorm: 736897 1 Tablet(s) PO BID and PRN 200909/06/2010 Inactive Premarin 0.9 mg Tab RxNorm: 840202 1 Tablet(s) PO QD 06/09/201007/13 Inactive Zofran 4 mg Tab RxNorm: 731424 1 Tablet(s) PO Q4H prn nausea 2009 No Stop Date Active ProAir HFA 90 mcg/Actuation Aerosol Inhaler RxNorm: 7885070 2 Puff(s) INH Q4H prn shortness of breath 06/09/2010 No Stop Date Active Gabapentin 800 mg Tab RxNorm: 278232 1 Tablet(s) PO QD 06/09/2010 Inactive Loratadine 10 mg Tab RxNorm: 574713 1 Tablet(s) PO QD 06/09/201006/23 Inactive Lactulose 10 gram/15 mL Oral Soln RxNorm: 105715 1 Unit Dose PO QD 06/09/2010 07/13/2010 Inactive Prevacid 30 mg Cap RxNorm: 341462 1 Capsule(s) PO QD 06/09/201007/13 Inactive Synthroid 112 mcg Tab RxNorm: 145361 1 Tablet(s) PO QD 06/09/2010 Inactive Symbicort 160 mcg-4.5 mcg/Actuation Inhalation HFA Aer osol Inhaler RxNorm: 2913612 2 Puff(s) INH BID 06/09/2010 07/13/2010 Inactive Omnicef 300 mg Cap RxNorm: 167411 2 Capsule(s) PO QD 05/07/201005/20 Inactive Metformin 500 mg Tab RxNorm: 124946 1 Tablet(s) PO QD 05/06/201005/22 Inactive ProAir HFA 90 mcg/Actuation Aerosol Inhaler RxNorm: 6655442 2 Puff(s) INH Q4H prn shortness of breath 05/06/2010 No Stop Date Active lactulose 10 gram/15 mL Oral Soln RxNorm: 307612 1 Unit Dose PO QD 05/06/2010 06/10/2011 Inactive Loratadine 10 mg Tab RxNorm: 959593 1 Tablet(s) PO QD 05/06/201005/22 Inactive Synthroid 112 mcg Tab RxNorm: 151099 1 Tablet(s) PO QD 05/06/2010 Inactive Symbicort 160 mcg-4.5 mcg/Actuation Inhalation HFA Aer osol Inhaler RxNorm: 6208973 2 Puff(s) INH BID 05/06/2010 06/08/2010 Inactive Gabapentin 800 mg Tab RxNorm: 261979 1 Tablet(s) PO QD 05/06/2010 Inactive 16.2 mg-0.1037 mg-0.0194 mg Tab RxNorm: 6964405 2 Tablet(s) PO TID PRN for gas and cramping 05/06/2010 05/12/2010 Inactive Zofran 4 mg Tab RxNorm: 645318 1 Tablet(s) PO Q4H prn nausea 200904/13/2010 Inactive MS Contin 60 mg Tab RxNorm: 899782 3 Tablet(s) PO BID 04/09/201004/22 Inactive Soma 350 mg Tab RxNorm: 859086 2 Tablet(s) PO TID 04/09/2010 05/08/20 10 Inactive Symbicort 160 mcg-4.5 mcg/Actuation Inhalation HFA Aer osol Inhaler RxNorm: 6370056 2 Puff(s) INH BID 04/08/2010 05/05/2010 Inactive Doxycycline 100 mg Cap RxNorm: 4524986 1 Capsule(s) PO BID 04/08/20 10 04/17/2010 Inactive Triamterene-Hydrochlorothiazide 37.5 mg-25 mg Cap RxNorm: 19 8316 1 Capsule(s) PO QAM 04/08/2010 09/04/2010 Inactive fluoxetine 40 mg Cap RxNorm: 713615 1 Capsule(s) PO QAM 04/08/2010 Inactive Morphine SR 120 mg multiphase 24 hr Cap RxNorm: 065964 1 Capsul e(s) PO 03/11/2010 04/07/2010 Inactive Endocet 10 mg-325 mg Tab RxNorm: 5127932 1-2 Tablet(s) PO Q4H TN N PAIN 03/11/2010 04/09/2010 Inactive Savella 100 mg Tab RxNorm: 622122 1 Tablet(s) PO BID 03/10/201004/09 Inactive Soma 350 mg Tab RxNorm: 860788 1 Tablet(s) PO TID prn spasm 010 04/09/2010 Inactive Savella 100 mg Tab RxNorm: 971911 1 Tablet(s) PO BID 02/03/201004/09 Inactive Aspirin 81 mg Tab RxNorm: 615074 1 Tablet(s) PO QD No Start Date Active Zyrtec 10 mg Tab RxNorm: 1141644 1 Tablet(s) PO QD No Start Date Active One Touch Ultra Test Strips RxNorm: Misc test at least t wice daily. No Start Date Active coenzyme Q10 200 mg capsule RxNorm: 540749 1 Capsule(s) PO QD No Star t Date Active One Touch Ultra Test Strips RxNorm: InVt BID Zainab t blood sugar at least twice daily. No Start Date 11/10/2010 Inactive Gabapentin 800 mg Tab RxNorm: 434550 1 Tablet(s) PO QD No Start Date 05/05/2010 Inactive Abilify 5 mg tablet RxNorm: 583009 1 Tablet(s) PO QD No Start Date Inactive Chantix 1 mg Tab RxNorm: 520281 1 Tablet(s) PO BID No Start Date 10/22 Inactive Ozempic 0.25 mg or 0.5 mg (2 mg/1.5 mL) subcutaneous p en injector RxNorm: 3010796 .25 Milligram(s) SQ QW No Start Date 07/04/2019 Inactive lancets 28 gauge RxNorm: Miscellaneous As needed for blo od glucose sticks No Start Date 08/23/2013 Inactive potassium chloride ER 20 mEq tablet,extended release RxNorm: 012188 2 Tablet(s) PO QD No Start Date 09/26/2018 Inactive Ventolin HFA 90 mcg/actuation Aerosol Inhaler RxNorm: 651797 1 2 Puff(s) INH Q4H prn No Start Date 01/17/2012 Inactive potassium chloride ER 20 mEq tablet,extended release RxNorm: 300470 2 Tablet(s) PO QD No Start Date 10/19/2018 Inactive Januvia 100 mg tablet RxNorm: 969652 1 Tablet(s) PO QD No Start Date 09/10/2015 Inactive Medrol (Aníbal) 4 mg Tabs in a Dose Pack RxNorm: 296781 Tablet(s) PO N o Start Date 08/09/2011 Inactive as directed Zithromax Z-Aníbal 250 mg Tab RxNorm: 259945 Tablet(s) PO No Start Date 01/25/2012 Inactive as directed vitamin B6-vitamin E-magnesium tablet RxNorm: 1 Tablet(s ) PO QHS with INH No Start Date 03/30/2018 Inactive prednisone 20 mg Tab RxNorm: 104140 1 Tablet(s) PO TID for 1wk then 1 po BID for 1wk No Start Date 01/25/2012 Inactive furosemide 40 mg tablet RxNorm: 264505 1 Tablet(s) PO QAM No Start Date 10/09/2018 Inactive Vitamin D3 1000 units Capsule RxNorm: 1 Capsule(s) PO TID No S tart Date 03/19/2015 Inactive Zofran 4 mg Tab RxNorm: 378212 1 Tablet(s) PO Q4H prn nausea No Sta rt Date 04/13/2010 Inactive Premarin 0.625 mg/g Vaginal Cream RxNorm: 533153 1 Gram (s) VAG QHS 3 times a week No Start Date 09/22/2017 Inactive oxycodone 10 mg tablet RxNorm: 6569849 1-2 Tablet(s) PO QID as n eeded for pain No Start Date 11/04/2015 Inactive Nicoderm CQ 21 mg/24 hr daily Patch RxNorm: 127224 1 Applicatio n TD QD No Start Date 08/05/2015 Inactive Topamax 50 mg tablet RxNorm: 860722 1/2 Tablet(s) PO QH S for 1wk then 1 po q HS for 1wk then 2 po q HS No Start Date 06/27/2012 Inactive Chantix Starting Month Aníbal 0.5 mg (11)-1 mg (3x14) Tab s in a Dose Pack RxNorm: 261782 Tablet(s) PO as directed No Start Date 03/01/2011 Inactive Trulicity 0.75 mg/0.5 mL subcutaneous pen injector RxNorm: 1 057763 Milliliter(s) SQ No Start Date 07/04/2019 Inactive Medrol (Aníbal) 4 mg Tabs in a Dose Pack RxNorm: 854543 Tablet(s) PO N o Start Date 01/25/2012 Inactive as directed Duragesic 100 mcg/hr Transderm Patch RxNorm: 286241 2 A pplication TD Q48H for pain No Start Date 09/05/2013 Inactive Premarin 0.9 mg Tab RxNorm: 149445 1 Tablet(s) PO QD No Start Date Inactive Zithromax Z-Aníbal 250 mg Tab RxNorm: 425316 Tablet(s) PO as direc chinmay No Start Date 01/25/2012 Inactive ondansetron 8 mg disintegrating tablet RxNorm: 654323 1 Tablet(s) PO Q6H as needed No Start Date 10/10/2018 Inactive oxycodone 15 mg tablet RxNorm: 4224635 1 Tablet(s) PO QID as nee ded for pain No Start Date 03/05/2019 Inactive ProAir HFA 90 mcg/Actuation Aerosol Inhaler RxNorm: 027667 2 Puff(s) INH Q4H prn for wheezing or shortness of breath No Start Date 12/21/2011 Inactive pravastatin 40 mg tablet RxNorm: 033669 1/2 Tablet(s) PO QOD No Sta rt Date 04/09/2015 Inactive ipratropium-albuterol 0.5 mg-3 mg(2.5 mg base)/3 mL ne bulization soln RxNorm: 1640634 1 Unit Dose INH Q4H as needed No Start Date 09/09/2016 Inactive furosemide 40 mg tablet RxNorm: 013720 1 Tablet(s) PO QAM as ne eded No Start Date 09/24/2019 Inactive Vitamin D2 oral RxNorm: 4018 oral No Start Date 03/18/2015 Inacti ve pravastatin 40 mg tablet RxNorm: 624199 1/2 Tablet(s) PO QD No Star t Date 04/09/2015 Inactive ondansetron HCl 4 mg tablet RxNorm: 765588 1 Tablet(s) PO Q4H as needed for nausea and vomiting No Start Date 04/07/2016 Inactive furosemide 40 mg tablet RxNorm: 468699 2 Tablet(s) PO QAM No Start Date 09/26/2018 Inactive gabapentin 800 mg tablet RxNorm: 314995 1/2 Tablet(s) PO BID No Sta rt Date 06/21/2017 Inactive gabapentin 800 mg tablet RxNorm: 854306 1/2 Tablet(s) PO BID No Sta rt Date 07/05/2017 Inactive ProAir HFA 90 mcg/Actuation Aerosol Inhaler RxNorm: 4872615 2 Puff(s) INH Q4H prn shortness of breath No Start Date 05/05/2010 Inactive scopolamine 1 mg over 3 days transdermal patch RxNorm: 41907 2 1 Application TD behind ear. Take off after three days No Start Date 10/10/2018 Inactive Metformin 500 mg Tab RxNorm: 167609 1 Tablet(s) PO QD No Start Date 0 05/05/2010 Inactive MS Contin 200 mg Tab RxNorm: 696176 1 Tablet(s) PO BID No Start Date 08/20/2011 Inactive Belladonna-Phenobarbital 48 mg tablet,extended release RxNor m: 2 Tablet(s) PO TID No Start Date 06/04/2016 Inactive Synthroid 112 mcg Tab RxNorm: 157648 1 Tablet(s) PO QD No Start Date 05/05/2010 Inactive Zegerid 40 mg-1.1 gram Cap RxNorm: 811059 1 Capsule(s) PO QD No Sta rt Date 01/25/2012 Inactive Premarin 0.625 mg/g Vaginal Cream RxNorm: 266338 VAG In sert 1gm vaginally at bedtime 3 times weekly No Start Date 01/17/2011 Inactive potassium chloride ER 20 mEq tablet,extended release RxNorm: 186948 1 Tablet(s) PO QD No Start Date 04/24/2019 Inactive methocarbamol 750 mg tablet RxNorm: 731461 2 Tablet(s) PO TID as needed for muscle spasm No Start Date 07/08/2014 Inactive Biaxin XL Aníbal 500 mg 24 hr Tab RxNorm: 542842 Tablet(s) PO as d irected No Start Date 04/24/2013 Inactive Vitamin D3 1,000 unit tablet RxNorm: 101912 3 Tablet(s) PO QD No St art Date 06/01/2017 Inactive Morphine SR 120 mg multiphase 24 hr Cap RxNorm: 445835 1 Capsul e(s) PO BID No Start Date 04/09/2010 Inactive Silvadene 1 % topical cream RxNorm: 306670 1 Application TOP BI D to burn area No Start Date 01/31/2017 Inactive Prednisone 20 mg Tab RxNorm: 853013 1 Tablet(s) PO TID for 3days then BID for 4days No Start Date 01/25/2012 Inactive gabapentin 600 mg tablet RxNorm: 494684 1 Tablet(s) PO BID No Start Date 01/21/2015 Inactive topiramate 50 mg tablet RxNorm: 071777 1 Tablet(s) PO QHS No Start Date 03/30/2018 Inactive Januvia 100 mg tablet RxNorm: 625532 1/2 Tablet(s) PO QD No Start D ate 12/25/2015 Inactive Diazepam 10 mg Tab RxNorm: 122485 1 Tablet(s) PO BID and PRN No Sta rt Date 06/08/2010 Inactive Medication Administered No Medication Administered data Immunizations Vaccine Codes Date Status Influenza CVX: 141 09/28/2012 Pneumovax Unknown 09/28/2012 Influenza (Adult) CVX: 141 09/02/2010 Results No Results data Procedures Procedure Codes Date THER/PROPH/DIAG INJ SC/IM CPT-4: 20108 07/10/2019 METHYLPREDNISOLONE INJECTION CPT-4: J2930 07/10/2019 URINALYSIS NONAUTO W/O SCOPE CPT-4: 46207 09/06/2018 URINE CULTURE/ COLONY COUNT CPT-4: 71808 09/06/2018 DRAIN/INJECT JOINT/BURSA CPT-4: 30656 04/29/2017 TRIAMCINOLONE ACET INJ NOS CPT-4: J3301 04/29/2017 DEXAMETHASONE SODIUM PHOS CPT-4: J1100 04/29/2017 INFLUENZA ASSAY W/OPTIC CPT-4: 66073 12/01/2016 RESPIRATORY CULTURE & STAIN CPT-4: 93503 07/09/2016 TB INTRADERMAL TEST CPT-4: 52635 04/21/2016 DRAIN/INJECT JOINT/BURSA CPT-4: 92141 11/07/2013 METHYLPREDNISOLONE 40 MG INJ CPT-4: J1030 11/07/2013 TRIAMCINOLONE ACET INJ NOS CPT-4: J3301 11/07/2013 DRAIN/INJECT JOINT/BURSA CPT-4: 61613 08/08/2013 METHYLPREDNISOLONE 40 MG INJ CPT-4: J1030 08/08/2013 TRIAMCINOLONE ACET INJ NOS CPT-4: J3301 08/08/2013 FLU VACCINE 3 YRS & > IM UP 64 CPT-4: 13844 2 PNEUMOCOCCAL VACC 23 ADITYA IM CPT-4: 39357 09/28/2012 IMMUNIZATION ADMIN CPT-4: 97757 09/28/2012 IMMUNIZATION ADMIN EACH ADD CPT-4: 90346 09/28/2012 FLU VACCINE 3 YRS & > IM UP 64 CPT-4: 13571 0 IMMUNIZATION ADMIN CPT-4: 86544 09/02/2010 METHYLPREDNISOLONE INJECTION CPT-4: J2930 05/07/2010 THER/PROPH/DIAG INJ SC/IM CPT-4: 42474 05/07/2010 Vital Signs Date Vital 10/30/2019 Blood [...] 1: 12278 Code: 8480-6 BMI: 29.5 Code: 74343-1 Heart Rate 1: 76 bpm Height: 5'4" Respiratory Rate: 20 bpm SpO2: 96% Tempera ture: 37.0 (C) / 98.6 (F) Weight: 172 lbs 01/25/2019 Blood Pressure 1: 132/80 Code: 8480-6 BMI: 29.7 Code: 31766-7 Heart Rate 1: 84 bpm Height: 5'4" Respiratory Rate: 22 bpm SpO2: 98% Tempera ture: 36.9 (C) / 98.4 (F) Weight: 173 lbs 01/03/2019 Blood Pressure 1: 116/70 Code: 8480-6 BMI: 29.5 Code: 55297-0 Heart Rate 1: 92 bpm Height: 5'4" Respiratory Rate: 24 bpm SpO2: 98% Tempera ture: 37.2 (C) / 98.9 (F) Weight: 172 lbs 11/21/2018 Blood Pressure 1: 146/82 Code: 8480-6 BMI: 28.2 Code: 87034-6 Heart Rate 1: 88 bpm Height: 5'4" Respiratory Rate: 22 bpm SpO2: 97% Tempera ture: 36.9 (C) / 98.4 (F) Weight: 164 lbs 10/27/2018 Blood Pressure 1: 122/70 Code: 8480-6 BMI: 27.6 Code: 58217-5 Heart Rate 1: 88 bpm Height: 5'4" Respiratory Rate: 20 bpm SpO2: 96% Tempera ture: 36.8 (C) / 98.3 (F) Weight: 161 lbs 10/18/2018 Blood Pressure 1: 126/70 Code: 8480-6 BMI: 28.3 Code: 33854-0 Heart Rate 1: 76 bpm Height: 5'4" Respiratory Rate: 20 bpm SpO2: 95% Tempera ture: 37.0 (C) / 98.6 (F) Weight: 165 lbs 09/27/2018 Blood Pressure 1: 124/78 Code: 8480-6 BMI: 27.1 Code: 16041-9 Heart Rate 1: 88 bpm Height: 5'4" Respiratory Rate: 20 bpm SpO2: 98% Tempera ture: 36.4 (C) / 97.6 (F) Weight: 158 lbs 09/14/2018 Blood Pressure 1: 140/72 Code: 8480-6 BMI: 26.1 Code: 26830-5 Heart Rate 1: 100 bpm Height: 5'4" Respiratory Rate: 20 bpm SpO2: 97% Tempera ture: 36.9 (C) / 98.4 (F) Weight: 152 lbs 09/06/2018 Blood Pressure 1: 156/82 Code: 8480-6 BMI: 26.3 Code: 68161-0 Heart Rate 1: 100 bpm Height: 5'4" Respiratory Rate: 28 bpm SpO2: 95% Tempera ture: 37.2 (C) / 98.9 (F) Weight: 153 lbs 08/16/2018 Blood Pressure 1: 130/78 Code: 8480-6 Heart Rate 1: 87 bpm Respiratory Rate: 24 bpm SpO2: 94% Temperature: 36.9 (C) / 98.4 (F) We ight: 147 lbs 8 oz 07/07/2018 Blood Pressure 1: 116/78 Code: 8480-6 BMI: 22.7 Code: 02381-2 Heart Rate 1: 88 bpm Height: 5'4" Respiratory Rate: 22 bpm SpO2: 98% Tempera ture: 36.5 (C) / 97.7 (F) Weight: 132 lbs 05/31/2018 Blood Pressure 1: 128/78 Code: 8480-6 BMI: 22.3 Code: 91130-5 Heart Rate 1: 92 bpm Height: 5'4" Respiratory Rate: 26 bpm SpO2: 94% Tempera ture: 36.7 (C) / 98.1 (F) Weight: 130 lbs 03/31/2018 Blood Pressure 1: 136/78 Code: 8480-6 BMI: 21.5 Code: 67769-5 Heart Rate 1: 76 bpm Height: 5'4" Respiratory Rate: 24 bpm SpO2: 95% Tempera ture: 36.8 (C) / 98.3 (F) Weight: 125 lbs 01/26/2018 Blood Pressure 1: 142/64 Code: 8480-6 BMI: 20.6 Code: 42756-2 Heart Rate 1: 90 bpm Height: 5'4" Respiratory Rate: 24 bpm SpO2: 92% Tempera ture: 36.3 (C) / 97.3 (F) Weight: 120 lbs 10/26/2017 Blood Pressure 1: 124/70 Code: 8480-6 BMI: 20.3 Code: 35424-9 Heart Rate 1: 76 bpm Height: 5'4" Respiratory Rate: 22 bpm SpO2: 94% Tempera ture: 36.7 (C) / 98.1 (F) Weight: 118 lbs 09/23/2017 Blood Pressure 1: 106/70 Code: 8480-6 BMI: 19.2 Code: 60488-6 Heart Rate 1: 76 bpm Height: 5'4" Respiratory Rate: 20 bpm SpO2: 94% Tempera ture: 36.8 (C) / 98.3 (F) Weight: 112 lbs 08/12/2017 Blood Pressure 1: 116/68 Code: 8480-6 BMI: 20.1 Code: 35844-9 Heart Rate 1: 80 bpm Height: 5'4" Respiratory Rate: 22 bpm SpO2: 95% Tempera ture: 36.8 (C) / 98.2 (F) Weight: 117 lbs 07/06/2017 Blood Pressure 1: 136/78 Code: 8480-6 BMI: 20.6 Code: 52900-3 Heart Rate 1: 76 bpm Height: 5'4" Respiratory Rate: 24 bpm SpO2: 96% Tempera ture: 36.8 (C) / 98.2 (F) Weight: 120 lbs 06/02/2017 Blood Pressure 1: 112/70 Code: 8480-6 Heart Rate 1: 92 bpm Height: 5'4" Respiratory Rate: 24 bpm SpO2: 95% Temperature: 37.0 (C) / 98.6 (F) Weight: 04/29/2017 Blood Pressure 1: 94/52 Code: 8480-6 BMI: 19.6 C ode: 29855-4 Heart Rate 1: 84 bpm Height: 5'4" [...] 92/58 Code: 8480-6 BMI: 19.2 C ode: 50950-9 Heart Rate 1: 84 bpm Height: 5'4" Respiratory Rate: 26 bpm SpO2: 95% Tempera ture: 36.7 (C) / 98.0 (F) Weight: 112 lbs 12/01/2016 Blood Pressure 1: 114/70 Code: 8480-6 BMI: 19.2 Code: 94252-6 Heart Rate 1: 96 bpm Height: 5'4" Respiratory Rate: 28 bpm SpO2: 93% Tempera ture: 38.3 (C) / 101.0 (F) Weight: 112 lbs 10/27/2016 Blood Pressure 1: 126/66 Code: 8480-6 BMI: 19.6 Code: 44363-1 Heart Rate 1: 92 bpm Height: 5'4" Respiratory Rate: 28 bpm SpO2: 90% Tempera ture: 36.8 (C) / 98.3 (F) Weight: 114 lbs 09/09/2016 Blood Pressure 1: 126/74 Code: 8480-6 Heart Rate 1: 104 bpm Height: 5'4" Respiratory Rate: 32 bpm SpO2: 88% Temperature: 37 .2 (C) / 99.0 (F) 08/26/2016 Blood Pressure 1: 134/82 Code: 8480-6 BMI: 22.0 Code: 90104-5 Heart Rate 1: 84 bpm Height: 5'4" Respiratory Rate: 24 bpm SpO2: 94% Tempera ture: 36.8 (C) / 98.3 (F) Weight: 128 lbs 05/21/2016 Blood Pressure 1: 142/80 Code: 8480-6 BMI: 21.6 Code: 83462-7 Heart Rate 1: 104 bpm Height: 5'4" Respiratory Rate: 22 bpm SpO2: 93% Tempera ture: 36.0 (C) / 96.8 (F) Weight: 126 lbs 03/25/2016 Blood Pressure 1: 126/62 Code: 8480-6 Heart Rate 1: 88 bpm Respiratory Rate: 20 bpm SpO2: 92% Temperature: 36.8 (C) / 98.3 (F) We ight: 130 lbs 01/23/2016 Blood Pressure 1: 146/82 Code: 8480-6 BMI: 24.1 Code: 07745-2 Heart Rate 1: 92 bpm Height: 5'3" Respiratory Rate: 22 bpm Temperature: 37 .1 (C) / 98.8 (F) Weight: 136 lbs 12/26/2015 Blood Pressure 1: 142/78 Code: 8480-6 BMI: 24.6 Code: 17195-4 Heart Rate 1: 78 bpm Height: 5'3" Respiratory Rate: 20 bpm Temperature: 36 .7 (C) / 98.1 (F) Weight: 139 lbs 12/03/2015 Blood Pressure 1: 126/60 Code: 8480-6 BMI: 24.6 Code: 27373-8 Heart Rate 1: 100 bpm Height: 5'3" Respiratory Rate: 28 bpm Temperature: 37 .6 (C) / 99.6 (F) Weight: 139 lbs 09/10/2015 Blood Pressure 1: 124/64 Code: 8480-6 BMI: 23.7 Code: 63967-4 Heart Rate 1: 88 bpm Height: 5'3" Respiratory Rate: 24 bpm SpO2: 95% Tempera ture: 36.4 (C) / 97.6 (F) Weight: 134 lbs 08/06/2015 Blood Pressure 1: 114/76 Code: 8480-6 BMI: 23.2 Code: 11804-7 Heart Rate 1: 88 bpm Height: 5'3" Respiratory Rate: 22 bpm Temperature: 36 .6 (C) / 97.9 (F) Weight: 131 lbs 07/18/2015 Blood Pressure 1: 144/78 Code: 8480-6 BMI: 23.7 Code: 15517-5 Heart Rate 1: 84 bpm Height: 5'3" Respiratory Rate: 20 bpm Temperature: 37 .2 (C) / 99.0 (F) Weight: 134 lbs 04/10/2015 Blood Pressure 1: 110/64 Code: 8480-6 Heart Rate 1: 80 bpm Height: Respiratory Rate: 20 bpm Temperature: 37.1 (C) / 98.8 (F) Weight: 03/05/2015 Blood Pressure 1: 136/80 Code: 8480-6 BMI: 23.9 Code: 01205-4 Heart Rate 1: 76 bpm Height: 5'3" Respiratory Rate: 24 bpm Temperature: 37 .0 (C) / 98.6 (F) Weight: 135 lbs 01/30/2015 Blood Pressure 1: 142/80 Code: 8480-6 BMI: 23.0 Code: 55428-0 Heart Rate 1: 96 bpm Height: 5'3" Respiratory Rate: 22 bpm Temperature: 36 .2 (C) / 97.2 (F) Weight: 130 lbs 01/02/2015 Blood Pressure 1: 124/70 Code: 8480-6 BMI: 23.4 Code: 65544-7 Heart Rate 1: 84 bpm Height: 5'3" Respiratory Rate: 24 bpm SpO2: 95% Tempera ture: 36.9 (C) / 98.5 (F) Weight: 132 lbs 10/03/2014 Blood Pressure 1: 106/68 Code: 8480-6 BMI: 22.5 Code: 18700-5 Heart Rate 1: 88 bpm Height: 5'3" Respiratory Rate: 24 bpm Temperature: 37 .0 (C) / 98.6 (F) Weight: 127 lbs 08/27/2014 Blood Pressure 1: 124/68 Code: 8480-6 BMI: 21.1 Code: 02660-6 Heart Rate 1: 88 bpm Height: 5'3" [...] 1: 120/70 Code: 8480-6 BMI: 19.2 Code: 75861-2 Heart Rate 1: 70 bpm Height: 5'4" Respiratory Rate: 20 bpm Temperature: 36 .9 (C) / 98.4 (F) Weight: 112 lbs 06/28/2013 Blood Pressure 1: 102/68 Code: 8480-6 BMI: 19.6 Code: 71820-7 Heart Rate 1: 76 bpm Height: 5'4" Respiratory Rate: 20 bpm Temperature: 36 .8 (C) / 98.2 (F) Weight: 114 lbs 05/31/2013 Blood Pressure 1: 106/70 Code: 8480-6 BMI: 18.9 Code: 43288-2 Heart Rate 1: 100 bpm Height: 5'4" Respiratory Rate: 20 bpm Temperature: 36 .4 (C) / 97.6 (F) Weight: 110 lbs 05/03/2013 Blood Pressure 1: 126/70 Code: 8480-6 BMI: 19.1 Code: 81932-8 Heart Rate 1: 88 bpm Height: 5'4" Respiratory Rate: 20 bpm Temperature: 37 .1 (C) / 98.8 (F) Weight: 111 lbs 04/25/2013 Blood Pressure 1: 114/68 Code: 8480-6 BMI: 19.4 Code: 51177-7 Heart Rate 1: 92 bpm Height: 5'4" Respiratory Rate: 24 bpm SpO2: 96% Tempera ture: 37.7 (C) / 99.8 (F) Weight: 113 lbs 03/08/2013 Blood Pressure 1: 94/68 Code: 8480-6 BMI: 21.3 C ode: 78813-2 Heart Rate 1: 88 bpm Height: 5'4" Respiratory Rate: 24 bpm Temperature: 37 .0 (C) / 98.6 (F) Weight: 124 lbs 02/07/2013 Blood Pressure 1: 106/64 Code: 8480-6 BMI: 21.8 Code: 59132-8 Heart Rate 1: 84 bpm Height: 5'4" Respiratory Rate: 22 bpm Temperature: 36 .8 (C) / 98.2 (F) Weight: 127 lbs 01/10/2013 Blood Pressure 1: 122/68 Code: 8480-6 BMI: 21.6 Code: 64315-5 Heart Rate 1: 94 bpm Height: 5'4" SpO2: 94% Temperature: 36.7 (C) / 98.1 (F) Weight: 126 lbs 09/28/2012 Blood Pressure 1: 124/78 Code: 8480-6 BMI: 24.9 Code: 39838-2 Heart Rate 1: 92 bpm Height: 5'4" Respiratory Rate: 20 bpm Temperature: 36 .7 (C) / 98.1 (F) Weight: 145 lbs 06/28/2012 Blood Pressure 1: 134/80 Code: 8480-6 BMI: 24.9 Code: 26192-0 Heart Rate 1: 76 bpm Height: 5'4" Respiratory Rate: 20 bpm Temperature: 36 .8 (C) / 98.2 (F) Weight: 145 lbs 05/03/2012 Blood Pressure 1: 108/62 Code: 8480-6 BMI: 25.6 Code: 16688-4 Heart Rate 1: 88 bpm Height: 5'4" Temperature: 36.2 (C) / 97.2 (F) Weight: 149 lbs 03/01/2012 Blood Pressure 1: 124/66 Code: 8480-6 BMI: 25.1 Code: 55982-4 Heart Rate 1: 76 bpm Height: 5'4" Respiratory Rate: 20 bpm Temperature: 36 .6 (C) / 97.9 (F) Weight: 146 lbs 01/26/2012 Blood Pressure 1: 118/82 Code: 8480-6 BMI: 25.1 Code: 40565-9 Heart Rate 1: 74 bpm Height: 5'4" Temperature: 36.8 (C) / 98.2 (F) Weight: 146 lbs 11/03/2011 Blood Pressure 1: 126/80 Code: 8480-6 BMI: 27.3 Code: 18873-7 Heart Rate 1: 72 bpm Height: 5'4" [...] prozac Encounters Encounter Performer Location Codes Date ([id number]) OFFICE/OUTPATIENT VISIT EST Diagnosis: Chronic pain syndrome[ICD10: G89.4] Diagnosis: Lumbar degenerative disc disease[ICD10: M51.36] Diagnosis: Muscle spasm[ICD10: M62.838] Diagnosis: Spinal stenosis, lumbar region with neurogenic claudication[ICD10: M48.062] Diagnosis: Spondylosis without myelopathy or radiculopathy, 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] Vika RENTERIA DO [facility] CPT-4: 68193 10/30/2019 ([id number]) OFFICE/OUTPATIENT VISIT EST Diagnosis: Chronic pain syndrome[ICD10: G89.4] Vika RENTERIA DO [facility] CPT-4: 94832 10/25/2019 ([id number]) OFFICE/OUTPATIENT VISIT EST Diagnosis: Epigastric pain[ICD10: R10.13] Diagnosis: Nausea[ICD10: R11.0] Diagnosis: Chronic obstructive pulmonary disease, unspecified[ICD10: J44.9] Vika RENTERIA DO [facility] CPT-4: 56290 07/26/2019 ([id number]) OFFICE/OUTPATIENT VISIT EST Diagnosis: Chronic obstructive pulmonary disease with (acute) exacerbation[ICD10: J44.1] Diagnosis: Chronic respiratory failure with hypoxia[ICD10: J96.11] Diagnosis: Other fatigue[ICD10: R53.83] Diagnosis: Edema, unspecified[ICD10: R60.9] Vika RENTERIA DO [facility] CPT-4: 70921 07/19/2019 ([id number]) OFFICE/OUTPATIENT VISIT EST Diagnosis: Chronic obstructive pulmonary disease with acute lower respiratory infection[ICD10: J44.0] Vika RENTERIA DO [facility] CPT-4: 10235 07/10/2019 ([id number]) OFFICE/OUTPATIENT VISIT EST Diagnosis: Type 2 diabetes mellitus with hyperglycemia[ICD10: E11.65] Diagnosis: Other infective otitis externa, left ear[ICD10: H60.392] Vika RENTERIA DO [facility] CPT-4: 87307 06/05/2019 ([id number]) OFFICE/OUTPATIENT VISIT EST Diagnosis: Chronic obstructive pulmonary disease with (acute) exacerbation[ICD10: J44.1] Diagnosis: Type 2 diabetes mellitus with hyperglycemia[ICD10: E11.65] Vika RENTERIA DO [facility] CPT-4: 72856 05/03/2019 ([id number]) OFFICE/OUTPATIENT VISIT EST Diagnosis: Type 2 diabetes mellitus with hyperglycemia[ICD10: E11.65] Diagnosis: Abnormal weight gain[ICD10: R63.5] Diagnosis: Chronic obstructive pulmonary disease with acute lower respiratory infection[ICD10: J44.0] Vika RENTERIA DO [facility] CPT-4: 84261 04/11/2019 ([id number]) OFFICE/OUTPATIENT VISIT EST Diagnosis: Hypothyroidism, unspecified[ICD10: E03.9] Diagnosis: Abnormal weight gain[ICD10: R63.5] Diagnosis: Other fatigue[ICD10: R53.83] Vika RENTERIA DO [facility] CPT-4: 04571 03/16/2019 ([id number]) OFFICE/OUTPATIENT VISIT EST Diagnosis: Abnormal weight gain[ICD10: R63.5] Diagnosis: Chronic obstructive pulmonary disease, unspecified[ICD10: J44.9] Diagnosis: Other chronic pain[ICD10: G89.29] Vika RENTERIA DO [facility] CPT-4: 51441 02/13/2019 ([id number]) OFFICE/OUTPATIENT VISIT EST Diagnosis: Chronic pain syndrome[ICD10: G89.4] Diagnosis: Edema, unspecified[ICD10: R60.9] Diagnosis: Major depressive disorder, 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] Diagnosis: Other fatigue[ICD10: R53.83] Vika RENTERIA DO [facility] CPT-4: 23055 01/25/2019 ([id number]) OFFICE/OUTPATIENT VISIT EST Diagnosis: Localized edema[ICD10: R60.0] Diagnosis: Other forms of dyspnea[ICD10: R06.09] Diagnosis: Hypothyroidism, unspecified[ICD10: E03.9] Vika RENTERIA DO [facility] CPT-4: 53298 01/03/2019 ([id number]) OFFICE/OUTPATIENT VISIT EST Diagnosis: Abnormal weight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
--- OUTSIDE RECORDS SUMMARY | 2020-04-24 23:40 | XMS REPORT | CCD ---
Author Author Yana Renteria D.O. Organization [facility] Address [address] [place] [address] Phone Care Team Providers Care Emergency Room Clinician Name Role Phone Vika Renteira D.O., PP Unavailable CCM Unavailable Summary Purpose Interface Exchange Insurance Providers Payer name Policy type / Coverage type Covered green party ID Effective Begin Date Effective End Date [employer] [facility] Medicaid [id number] 2018 U nknown Family History Family History data not found Social History Social History Element Codes Description Effective Dates Marital status Unknown 06/28/[address]: 85317516 Currently smokes tobacco 05/2013 Allergies, Adverse Reactions, [...] spasm ICD-9: 728.85 ICD-10: M62.838 03/31/2018 Active Chronic obstructive pulmonary disease, unspecified ICD [...] MS Contin 100 mg tablet,extended release RxNorm: 892062 1 Table t(s) Oral QD 10/30/2019 11/28/2019 Active ferrous sulfate 325 mg (65 mg iron) tablet RxNorm: 436863 1 Tab let(s) Oral QD 10/30/2019 No Stop Date Active MS Contin 100 mg tablet,extended release RxNorm: 717244 1 Table t(s) Oral QD 10/30/2019 10/29/2019 Inactive Relistor 150 mg tablet RxNorm: 5620416 TAKE THREE TABLETS BY BENOIT TH DAILY 10/25/2019 No Stop Date Active oxycodone 15 mg tablet RxNorm: 8932197 1 Tablet(s) Oral four times a day as needed for pain 10/25/2019 10/25/2019 Inactive pantoprazole 40 mg tablet,delayed release RxNorm: 959356 1 Tabl et(s) Oral QD 10/25/2019 No Stop Date Active metformin 500 mg tablet RxNorm: 730122 1 Tablet(s) Oral QD 10/25/20 19 No Stop Date Active levothyroxine 25 mcg tablet RxNorm: 747700 1 Tablet(s) Oral QAM 02/201912/23/2019 Active Minipress 2 mg capsule RxNorm: 994684 1 Capsule(s) Oral QAM and 3 at bedtime 10/25/2019 No Stop Date Active Lancets, Super Thin RxNorm: 1 Unit Dose Miscellaneous QD 9 11/27/2020 Active Cymbalta 60 mg capsule,delayed release RxNorm: 623649 1 Capsule (s) Oral QAM 10/25/2019 No Stop Date Active Cymbalta 30 mg capsule,delayed release RxNorm: 303700 1 Capsule (s) Oral QAM 10/25/2019 No Stop Date Active levothyroxine 25 mcg tablet RxNorm: 173873 1 Tablet(s) Oral QAM 02/201910/24/2019 Inactive MS Contin 100 mg tablet,extended release RxNorm: 179251 1 Tablet(s) Oral two times a day replaces fentanyl 10/25/2019 10/25/2019 Inactive Premarin 0.45 mg tablet RxNorm: 944443 TAKE ONE TABLET BY MOUTH DAILY 10/24/2019 No Stop Date Active Duragesic 100 mcg/hr transdermal patch RxNorm: 737660 2 Application TD Q48H for pain 10/18/2019 10/24/2019 Inactive gabapentin 300 mg capsule RxNorm: 938740 TAKE ONE CAPSULE BY MO UTH TWICE A DAY 10/16/2019 No Stop Date Active cyclobenzaprine 10 mg tablet RxNorm: 176411 TAKE ONE TA BLET BY MOUTH THREE TIMES A DAY NEEDED 09/27/2019 No Stop Date Active ProAir HFA 90 mcg/actuation aerosol inhaler RxNorm: 991459 INHALE ONE PUFF BY MOUTH EVERY 4 HOURS FOR WHEEZING OR FOR SHORTNESS OF BREATH 09/25/2019 No Stop Date Active furosemide 40 mg tablet RxNorm: 003028 1 Tablet(s) Oral QAM as needed 09/25/2019 09/25/2019 Inactive Relistor 150 mg tablet RxNorm: 6670081 TAKE THREE TABLETS BY BENOIT TH DAILY 09/25/2019 10/24/2019 Inactive oxycodone 15 mg tablet RxNorm: 9982606 1 Tablet(s) PO QID as nee ded for pain 09/21/2019 10/24/2019 Inactive Duragesic 100 mcg/hr transdermal patch RxNorm: 317302 2 Application TD Q48H for pain 09/19/2019 10/17/2019 Inactive Daliresp 500 mcg tablet RxNorm: 5576148 1 Tablet(s) Oral QD 019 03/08/2020 Active potassium chloride ER 20 mEq tablet,extended release RxNorm: 891095 TAKE ONE TABLET BY MOUTH DAILY 07/25/2019 01/20/2020 Active Relistor 150 mg tablet RxNorm: 5479212 TAKE THREE TABLETS BY BENOIT TH DAILY 07/25/2019 07/30/2019 Inactive cyclobenzaprine 10 mg tablet RxNorm: 003491 TAKE ONE TA BLET BY MOUTH THREE TIMES A DAY NEEDED 07/25/2019 09/22/2019 Inactive fluoxetine 40 mg capsule RxNorm: 722452 TAKE ONE CAPSULE BY BENOIT TH EVERY MORNING 07/11/2019 10/24/2019 Inactive Medrol (Aníbal) 4 mg tablets in a dose pack RxNorm: 984718 6 Tablet(s) PO QD --then as directed 07/10/2019 07/15/2019 Inactive omeprazole 40 mg capsule,delayed release RxNorm: 911982 1 Capsule(s) PO QD for stomach TAKE ONE CAPSULE BY MOUTH DAILY 07/10/2019 10/24/2019 Inactive Augmentin 875 mg-125 mg tablet RxNorm: 588430 1 Tablet(s) PO BID 07/16/2019 Inactive Trulicity 0.75 mg/0.5 mL subcutaneous pen injector RxNorm: 1 481797 0.75 Milliliter(s) SQ weekly 07/05/2019 10/24/2019 Inactive Compazine 10 mg tablet RxNorm: 561552 TAKE ONE TABLET B Y MOUTH FOUR TIMES A DAY NEEDED FOR NAUSEA 06/20/2019 07/19/2019 Inactive ProAir HFA 90 mcg/actuation aerosol inhaler RxNorm: 702527 INHALE ONE PUFF BY MOUTH EVERY 4 HOURS FOR WHEEZING OR FOR SHORTNESS OF BREATH 06/20/2019 06/23/2019 Inactive Daliresp 500 mcg tablet RxNorm: 9660806 TAKE ONE TABLET BY MOUTH DAILY 06/12/2019 09/10/2019 Inactive qvmxiihm-vvrfwljgm-vjdzihqcc 3.5 mg/mL-10,000 unit/mL- 1 % ear solution RxNorm: 462671 4 Drop(s) otic (ear) TID to left ear 06/05/2019 10/24/2019 Inac tive furosemide 40 mg tablet RxNorm: 244870 TAKE ONE TABLET BY MOUTH EVERY MORNING 05/26/2019 07/09/2019 Inactive Duragesic 100 mcg/hr transdermal patch RxNorm: 132519 2 Application TD Q48H for pain 05/16/2019 06/14/2019 Inactive oxycodone 15 mg tablet RxNorm: 1408513 1 Tablet(s) PO QID as nee ded for pain 05/10/2019 09/20/2019 Inactive doxycycline hyclate 100 mg capsule RxNorm: 0129224 1 Capsule(s) PO BID 05/03/2019 05/12/2019 Inactive prednisone 20 mg tablet RxNorm: 656471 1 Tablet(s) PO T ID for 3 days then 1 po BID for 3 days then one daily for 3 days 05/03/2019 07/11/2019 Inactiv e Ozempic 0.25 mg or 0.5 mg (2 mg/1.5 mL) subcutaneous p en injector RxNorm: 9071521 0.5 Milligram(s) SQ QW 05/03/2019 07/09/2019 Inactive fluconazole 100 mg tablet RxNorm: 790990 1 Tablet(s) PO QD 05/03/2005/07/2019 Inactive Premarin 0.45 mg tablet RxNorm: 753868 TAKE ONE TABLET BY MOUTH DAILY 05/03/2019 10/23/2019 Inactive potassium chloride ER 20 mEq tablet,extended release RxNorm: 211756 1 Tablet(s) PO QD 04/27/2019 07/25/2019 Inactive potassium chloride ER 20 mEq tablet,extended release RxNorm: 206693 1 Tablet(s) PO QD 04/25/2019 04/26/2019 Inactive Compazine 10 mg tablet RxNorm: 778878 1 Tablet(s) PO QID as nee ded for nausea 04/25/2019 05/04/2019 Inactive ProAir HFA 90 mcg/actuation aerosol inhaler RxNorm: 475062 INHALE ONE PUFF BY MOUTH EVERY 4 HOURS FOR WHEEZING OR FOR SHORTNESS OF BREATH 04/12/2019 06/10/2019 Inactive Medrol (Aníbal) 4 mg tablets in a dose pack RxNorm: 931187 6 Tablet(s) PO QD --then as directed 04/11/2019 04/16/2019 Inactive Symbicort 160 mcg-4.5 mcg/actuation HFA aerosol inhaler RxNo rm: 6109095 2 Puff(s) INH BID 04/10/2019 10/06/2019 Inactive levothyroxine 50 mcg tablet RxNorm: 577899 1 Tablet(s) PO QD 201810/24/2019 Inactive gabapentin 300 mg capsule RxNorm: 923564 1 Capsule(s) PO BID 201810/02/2019 Inactive Symbicort 160 mcg-4.5 mcg/actuation HFA aerosol inhaler RxNo rm: 8325452 2 Puff(s) INH BID 04/06/2019 04/09/2019 Inactive oxycodone 15 mg tablet RxNorm: 4338108 1 Tablet(s) PO QID as nee ded for pain 04/05/2019 05/09/2019 Inactive levothyroxine 50 mcg tablet RxNorm: 314594 1 Tablet(s) PO QD 201804/09/2019 Inactive furosemide 40 mg tablet RxNorm: 220570 TAKE ONE TABLET BY MOUTH EVERY MORNING 03/21/2019 04/19/2019 Inactive levothyroxine 50 mcg tablet RxNorm: 381322 TAKE ONE TABLET BY M OUTH DAILY 03/21/2019 03/27/2019 Inactive Duragesic 100 mcg/hr transdermal patch RxNorm: 846216 2 Application TD Q48H for pain 03/13/2019 04/11/2019 Inactive oxycodone 15 mg tablet RxNorm: 0803930 1 Tablet(s) PO QID as nee ded for pain 03/06/2019 04/04/2019 Inactive Relistor 150 mg tablet RxNorm: 7591484 3 Tablet(s) PO QD 02/28/2019 0 05/28/2019 Inactive cyclobenzaprine 10 mg tablet RxNorm: 720555 1 Tablet(s) PO TID as needed 02/28/2019 05/28/2019 Inactive phentermine 37.5 mg tablet RxNorm: 958747 1 Tablet(s) PO QAM 201803/15/2019 Inactive Duragesic 100 mcg/hr transdermal patch RxNorm: 174445 2 Application TD Q48H for pain 02/09/2019 03/10/2019 Inactive Daliresp 500 mcg tablet RxNorm: 2559386 TAKE ONE TABLET BY MOUTH DAILY 01/31/2019 05/30/2019 Inactive Premarin 0.45 mg tablet RxNorm: 311707 1 Tablet(s) PO QD 01/31/2019 0 04/30/2019 Inactive fluoxetine 40 mg capsule RxNorm: 462028 Capsule(s) TAKE ONE CAPSULE BY MOUTH EVERY MORNING 01/31/2019 04/30/2019 Inactive levothyroxine 50 mcg tablet RxNorm: 937525 1 Tablet(s) PO QD 201804/10/2019 Inactive follow up in 3 weeks levothyroxine 50 mcg tablet RxNorm: 834425 1 Tablet(s) PO QD 201801/25/2019 Inactive follow up in 3 weeks potassium chloride ER 20 mEq tablet,extended release RxNorm: 741504 2 Tablet(s) PO BID 01/23/2019 02/14/2019 Inactive Synthroid 50 mcg tablet RxNorm: 951290 TAKE ONE TABLET BY MOUTH DAILY 01/16/2019 10/24/2019 Inactive potassium chloride ER 20 mEq tablet,extended release RxNorm: 055057 2 Tablet(s) PO BID 01/04/2019 01/22/2019 Inactive ProAir HFA 90 mcg/actuation aerosol inhaler RxNorm: 648200 INHALE ONE PUFF BY MOUTH EVERY 4 HOURS FOR WHEEZING OR SHORTNESS OF BREATH 01/04/201902/20 Inactive Request already responded to by other me ans (e.g. phone or fax) ProAir HFA 90 mcg/actuation aerosol inhaler RxNorm: 0720304 INHALE ONE PUFF BY MOUTH EVERY 4 HOURS FOR WHEEZING OR SHORTNESS OF BREATH 01/02/201912/23 Inactive gabapentin 300 mg capsule RxNorm: 596880 TAKE ONE CAPSULE BY MO UTH TWICE A DAY 12/30/2018 04/06/2019 Inactive furosemide 40 mg tablet RxNorm: 591837 1 Tablet(s) PO QAM 12/26/2018 02/23/2019 Inactive Compazine 10 mg tablet RxNorm: 507471 1 Tablet(s) PO QID as nee ded for nausea 12/07/2018 12/16/2018 Inactive metolazone 2.5 mg tablet RxNorm: 464552 TAKE ONE TABLET BY MOUT H EVERY MORNING 12/05/2018 01/03/2019 Inactive metformin ER 500 mg tablet,extended release 24 hr RxNorm: 86 0975 TAKE ONE TABLET BY MOUTH DAILY 12/05/2018 04/10/2019 Inactive Synthroid 50 mcg tablet RxNorm: 795498 1 Tablet(s) PO QD 11/25/2018 0 01/03/2019 Inactive DC any other synthroid strengths. Should be 50mcg only cyclobenzaprine 10 mg tablet RxNorm: 345450 TAKE ONE TA BLET BY MOUTH THREE TIMES A DAY NEEDED 11/09/2018 02/06/2019 Inactive metolazone 2.5 mg tablet RxNorm: 050752 1 Tablet(s) PO QAM repl aces 5mg dose 11/02/2018 12/01/2018 Inactive potassium chloride ER 20 mEq tablet,extended release RxNorm: 922288 2 Tablet(s) PO QD 2018 01/02/2019 Inactive Compazine 10 mg tablet RxNorm: 900269 1 Tablet(s) PO QID as nee ded for nausea 10/18/2018 12/07/2018 Inactive furosemide 40 mg tablet RxNorm: 926295 1 Tablet(s) PO QAM 10/12/2018 12/10/2018 Inactive ondansetron 8 mg disintegrating tablet RxNorm: 400146 1 Tablet(s) PO Q6H as needed 10/11/2018 10/17/2018 Inactive scopolamine 1 mg over 3 days transdermal patch RxNorm: 89759 2 1 Application TD behind ear. Take off after three days 10/11/2018 01/02/2019 Inactive furosemide 40 mg tablet RxNorm: 546748 1 Tablet(s) PO QAM 10/10/2018 12/26/2018 Inactive metolazone 5 mg tablet RxNorm: 376091 1 Tablet(s) PO QAM 10/06/201801/03/2018 Inactive metolazone 5 mg tablet RxNorm: 629116 1 Tablet(s) PO QAM 10/06/2018 1 12/05/2017 Inactive Xtampza ER 36 mg capsule sprinkle RxNorm: 5568215 1 Capsule(s) P O BID 10/05/2018 01/02/2019 Inactive Xtampza ER 36 mg capsule sprinkle RxNorm: 7404824 1 Capsule(s) P O BID 10/05/2018 02/12/2019 Inactive omeprazole 40 mg capsule,delayed release RxNorm: 018127 TAKE ONE CAPSULE BY MOUTH DAILY 10/03/2018 12/31/2018 Inactive Duragesic 100 mcg/hr transdermal patch RxNorm: 602108 2 Application TD Q48H for pain 09/30/2018 10/29/2018 Inactive Synthroid 50 mcg tablet RxNorm: 290036 1 Tablet(s) PO QD 09/29/2018 0 11/25/2018 Inactive DC any other synthroid strengths. Should be 50mcg only Synthroid 50 mcg tablet RxNorm: 589392 1 Tablet(s) PO QD 09/29/2018 1 11/28/2017 Inactive furosemide 40 mg tablet RxNorm: 839329 2 Tablet(s) PO Q AM for 1 week then every other day for 2 weeks 09/27/2018 10/12/2018 Inactive fluoxetine 40 mg capsule RxNorm: 681115 2 Capsule(s) PO QD 09/27/20 18 10/17/2018 Inactive potassium chloride ER 20 mEq tablet,extended release RxNorm: 726900 2 Tablet(s) PO QD for 1 week then every other day for 2 weeks 09/27/2018 2018 Inactive ProAir HFA 90 mcg/actuation aerosol inhaler RxNorm: 4490110 INHALE ONE PUFF BY MOUTH EVERY 4 HOURS FOR WHEEZING OR SHORTNESS OF BREATH 09/26/201811/23 Inactive Synthroid 75 mcg tablet RxNorm: 828499 1 Tablet(s) PO QD 09/09/2018 1 Inactive Synthroid 75 mcg tablet RxNorm: 962228 1 Tablet(s) PO QD 09/09/2018 1 11/28/2017 Inactive furosemide 40 mg tablet RxNorm: 675764 1 Tablet(s) PO QD 09/06/2018 1 Inactive potassium chloride ER 20 mEq tablet,extended release RxNorm: 697284 1 Tablet(s) PO QD 09/06/2018 09/19/2018 Inactive Duragesic 100 mcg/hr transdermal patch RxNorm: 526852 2 Application TD Q48H for pain 08/30/2018 09/28/2018 Inactive gabapentin 300 mg capsule RxNorm: 630485 TAKE ONE CAPSULE BY [facility] TWICE A DAY 08/23/2018 12/20/2018 Inactive Daliresp 500 mcg tablet RxNorm: 3679863 TAKE ONE TABLET BY MOUTH DAILY 08/23/2018 01/19/2019 Inactive Pulmicort 1 mg/2 mL suspension for nebulization RxNorm: 6168 19 USE ONE VIAL VIA NEBULIZER BY MOUTH TWICE A DAY 08/23/2018 07/11/2019 Inactive Synthroid 88 mcg tablet RxNorm: 673770 1 Tablet(s) PO QD 08/19/2018 Inactive Medrol (Aníbal) 4 mg tablets in a dose pack RxNorm: 960469 Tablet(s) PO take as directed 08/16/2018 09/05/2018 Inactive Relistor 150 mg tablet RxNorm: 5524707 3 Tablet(s) PO QD 08/16/2018 1 Inactive Zithromax Z-Aníbal 250 mg tablet RxNorm: 155261 Tablet(s) PO take as directed 08/16/2018 09/05/2018 Inactive cyclobenzaprine 10 mg tablet RxNorm: 035711 1 Tablet(s) PO TID as needed 08/16/2018 11/08/2018 Inactive Synthroid 88 mcg tablet RxNorm: 279849 1 Tablet(s) PO Q D NEEDS UPDATED LABS BEFORE FURTHER REFILLS 08/08/2018 08/19/2018 Inactive Premarin 0.45 mg tablet RxNorm: 362684 1 Tablet(s) PO QD 08/03/2018 0 01/31/2019 Inactive fluoxetine 20 mg capsule RxNorm: 628265 TAKE ONE CAPSULE BY BENOIT TH DAILY 08/03/2018 09/26/2018 Inactive Xtampza ER 36 mg capsule sprinkle RxNorm: 7381291 1 Capsule(s) P O BID 08/03/2018 09/01/2018 Inactive metformin ER 500 mg tablet,extended release 24 hr RxNorm: 86 0975 1 Tablet(s) PO QD 08/03/2018 10/31/2018 Inactive Symbicort 160 mcg-4.5 mcg/actuation HFA aerosol inhaler RxNo rm: 8326208 2 Puff(s) INH BID 08/03/2018 01/29/2019 Inactive Duragesic 100 mcg/hr transdermal patch RxNorm: 826956 2 Application TD Q48H for pain 07/29/2018 08/27/2018 Inactive ProAir HFA 90 mcg/actuation aerosol inhaler RxNorm: 997341 INHALE TWO PUFFS BY MOUTH EVERY 4 HOURS FOR WHEEZING OR SHORTNESS OF BREATH 07/27/201802/2018 Inactive Relistor 150 mg tablet RxNorm: 7268762 3 Tablet(s) PO QD 07/20/2018 0 08/15/2018 Inactive metformin ER 500 mg tablet,extended release 24 hr RxNorm: 86 0975 TAKE ONE TABLET BY MOUTH DAILY 07/08/2018 08/02/2018 Inactive fluoxetine 40 mg capsule RxNorm: 843780 TAKE ONE CAPSULE BY BENOIT TH EVERY MORNING 07/08/2018 10/05/2018 Inactive Xtampza ER 18 mg capsule sprinkle RxNorm: 0277047 1 Capsule(s) P O BID 07/08/2018 08/02/2018 Inactive Relistor 150 mg tablet RxNorm: 7186803 3 Tablet(s) PO QD 07/08/2018 0 07/12/2018 Inactive Synthroid 88 mcg tablet RxNorm: 422831 1 Tablet(s) PO Q D NEEDS UPDATED LABS BEFORE FURTHER REFILLS 06/23/2018 07/07/2018 Inactive fluoxetine 40 mg capsule RxNorm: 976439 TAKE ONE CAPSULE BY BENOIT TH EVERY MORNING 06/15/2018 09/26/2018 Inactive orphenadrine citrate ER 100 mg tablet,extended release RxNor m: 586523 TAKE ONE TABLET BY MOUTH TWICE A DAY FOR MUSCLE SPASM 06/15/2018 08/15/2018 Renu ctive Duragesic 100 mcg/hr transdermal patch RxNorm: 699082 2 Application TD Q48H for pain 05/30/2018 06/28/2018 Inactive ProAir HFA 90 mcg/actuation aerosol inhaler RxNorm: 612384 INHALE TWO PUFFS BY MOUTH EVERY 4 HOURS FOR WHEEZING OR SHORTNESS OF BREATH 05/19/201803/2018 Inactive Chantix Continuing Month Box 1 mg tablet RxNorm: 352927 TAKE ONE TABLET BY MOUTH TWICE A DAY 05/19/2018 08/15/2018 Inactive oxycodone 10 mg tablet RxNorm: 6455216 1-2 Tablet(s) PO QID as n eeded for pain 05/19/2018 07/07/2018 Inactive gabapentin 300 mg capsule RxNorm: 689037 TAKE ONE CAPSULE BY MO UTH TWICE A DAY 05/18/2018 07/16/2018 Inactive ProAir HFA 90 mcg/actuation aerosol inhaler RxNorm: 566766 INHALE TWO PUFFS BY MOUTH EVERY 4 HOURS FOR WHEEZING OR SHORTNESS OF BREATH 05/04/201804/23 Inactive Augmentin 500 mg-125 mg tablet RxNorm: 988353 1 Tablet(s) PO BID 05/03/2018 Inactive oxycodone 10 mg tablet RxNorm: 3258478 1-2 Tablet(s) PO QID as n eeded for pain 04/21/2018 05/18/2018 Inactive Synthroid 88 mcg tablet RxNorm: 600366 1 Tablet(s) PO QD 04/15/2018 0 08/08/2018 Inactive Symbicort 160 mcg-4.5 mcg/actuation HFA aerosol inhaler RxNo rm: 1916170 2 Puff(s) INH BID 04/15/2018 04/10/2019 Inactive Premarin 0.45 mg tablet RxNorm: 216366 1 Tablet(s) PO QD 04/15/2018 0 08/03/2018 Inactive ProAir HFA 90 mcg/actuation aerosol inhaler RxNorm: 979021 2 Puff(s) INH Q4H prn for wheezing or shortness of breath 04/15/2018 05/03/2018 Inactive metformin ER 500 mg tablet,extended release 24 hr RxNorm: 86 0975 1 Tablet(s) PO QD 04/11/2018 07/07/2018 Inactive omeprazole 40 mg capsule,delayed release RxNorm: 271916 TAKE ONE CAPSULE BY MOUTH DAILY 04/10/2018 06/08/2018 Inactive Synthroid 88 mcg tablet RxNorm: 872739 1 Tablet(s) PO QD 04/04/2018 0 04/14/2018 Inactive Synthroid 88 mcg tablet RxNorm: 252648 1 Tablet(s) PO QD 04/04/2018 0 04/03/2018 Inactive orphenadrine citrate ER 100 mg tablet,extended release RxNor m: 144867 1 Tablet(s) PO BID for muscle spasm 04/04/2018 05/03/2018 Inactive metformin ER 500 mg tablet,extended release 24 hr RxNorm: 86 0975 1 Tablet(s) PO QD NEEDS UPDATED LABS 03/31/2018 04/11/2018 Inactive doxycycline hyclate 100 mg capsule RxNorm: 8956511 1 Capsule(s) PO BID 03/31/2018 04/09/2018 Inactive prednisone 20 mg tablet RxNorm: 203343 3 Tablet(s) PO T ID for 3 days then 1 po BID for 3 days then one daily for 3 days 03/31/2018 07/06/2018 Inactiv e Chantix Continuing Month Box 1 mg tablet RxNorm: 125048 TAKE ONE TABLET BY MOUTH TWICE A DAY 03/25/2018 03/30/2018 Inactive oxycodone 10 mg tablet RxNorm: 4275877 1-2 Tablet(s) PO QID as n eeded for pain 03/21/2018 04/20/2018 Inactive Daliresp 500 mcg tablet RxNorm: 4833831 1 Tablet(s) PO QD 03/15/2018 08/22/2018 Inactive metformin ER 500 mg tablet,extended release 24 hr RxNorm: 86 0975 1 Tablet(s) PO QD NEEDS UPDATED LABS 03/14/2018 03/31/2018 Inactive nystatin 100,000 unit/mL oral suspension RxNorm: 989831 5 Chio liter(s) PO QID 03/02/2018 03/15/2018 Inactive nystatin 100,000 unit/mL oral suspension RxNorm: 391429 5 Chio liter(s) PO QID 03/02/2018 03/01/2018 Inactive oxycodone 10 mg tablet RxNorm: 4894237 1-2 Tablet(s) PO QID as n eeded for pain 02/16/2018 03/20/2018 Inactive fluoxetine 20 mg capsule RxNorm: 204165 1 Capsule(s) PO QD 02/15/20 18 08/02/2018 Inactive metformin ER 500 mg tablet,extended release 24 hr RxNorm: 86 0975 1 Tablet(s) PO QD Needs updated labs 02/14/2018 03/14/2018 Inactive cefdinir 300 mg capsule RxNorm: 424273 1 Capsule(s) PO BID 01/27/20 18 02/04/2018 Inactive orphenadrine citrate ER 100 mg tablet,extended release RxNor m: 802838 1 Tablet(s) PO BID for muscle spasm 01/26/2018 04/04/2018 Inactive gabapentin 300 mg capsule RxNorm: 737499 1 Capsule(s) PO BID 201704/17/2018 Inactive oxycodone 10 mg tablet RxNorm: 2685730 1-2 Tablet(s) PO QID as n eeded for pain 01/17/2018 02/15/2018 Inactive Duragesic 100 mcg/hr transdermal patch RxNorm: 113744 2 Application TD Q48H for pain 01/17/2018 02/15/2018 Inactive gabapentin 300 mg capsule RxNorm: 655812 TAKE ONE CAPSULE BY MO UTH TWICE A DAY 12/20/2017 01/18/2018 Inactive fluoxetine 40 mg capsule RxNorm: 930651 TAKE ONE CAPSULE BY BENOIT TH EVERY MORNING 12/15/2017 03/14/2018 Inactive OneTouch Ultra Test strips RxNorm: TEST DAILY 11/04/2017 02/01/2018 Inactive gabapentin 300 mg capsule RxNorm: 387157 1 Capsule(s) P O TID replaces BID dosing 10/26/2017 02/22/2018 Inactive oxycodone 10 mg tablet RxNorm: 3380943 1-2 Tablet(s) PO QID as n eeded for pain 10/18/2017 01/16/2018 Inactive Duragesic 100 mcg/hr transdermal patch RxNorm: 881148 2 Application TD Q48H for pain 10/18/2017 11/16/2017 Inactive gabapentin 300 mg capsule RxNorm: 746925 1 Capsule(s) PO BID 201610/25/2017 Inactive Abilify 5 mg tablet RxNorm: 338703 1 Tablet(s) PO QAM 09/23/201702/2017 Inactive gabapentin 300 mg capsule RxNorm: 603891 1 Capsule(s) PO BID 201610/17/2017 Inactive oxycodone 10 mg tablet RxNorm: 2404319 1-2 Tablet(s) PO QID as n eeded for pain 09/15/2017 10/17/2017 Inactive Duragesic 100 mcg/hr transdermal patch RxNorm: 543479 2 Application TD Q48H for pain 09/15/2017 10/14/2017 Inactive Duragesic 100 mcg/hr transdermal patch RxNorm: 872404 2 Application TD Q48H for pain 09/15/2017 10/24/2019 Inactive oxycodone 10 mg tablet RxNorm: 0755973 1-2 Tablet(s) PO QID as n eeded for pain 09/15/2017 08/15/2018 Inactive Daliresp 500 mcg tablet RxNorm: 0692986 1 Tablet(s) PO QD 09/06/2017 03/15/2018 Inactive Ventolin HFA 90 mcg/actuation aerosol inhaler RxNorm: 822567 2 Puff(s) INH Q4H as needed 09/02/2017 05/19/2018 Inactive oxycodone 10 mg tablet RxNorm: 7749610 1-2 Tablet(s) PO QID as n eeded for pain 08/17/2017 09/14/2017 Inactive Duragesic 100 mcg/hr transdermal patch RxNorm: 849174 2 Application TD Q48H for pain 08/17/2017 09/14/2017 Inactive fluoxetine 40 mg capsule RxNorm: 963633 Capsule(s) TAKE ONE CAPSULE BY MOUTH EVERY MORNING 08/17/2017 12/14/2017 Inactive Pulmicort 1 mg/2 mL suspension for nebulization RxNorm: 6168 19 1 Unit Dose INH BID Dx: COPD (J44.9) 08/16/2017 08/22/2018 Inactive gabapentin 300 mg capsule RxNorm: 164127 1 Capsule(s) PO QHS 201610/18/2017 Inactive fluoxetine 20 mg capsule RxNorm: 397641 1 Capsule(s) PO QD 08/12/20 17 02/14/2018 Inactive Abilify 2 mg tablet RxNorm: 779407 1 Tablet(s) PO QD TA KE ONE TABLET BY MOUTH DAILY 08/12/2017 10/25/2017 Inactive metformin ER 500 mg tablet,extended release 24 hr RxNorm: 86 0975 1 Tablet(s) PO QD 08/10/2017 02/14/2018 Inactive Synthroid 112 mcg tablet RxNorm: 545353 1 Tablet(s) PO QD 08/10/2017 04/15/2018 Inactive oxycodone 10 mg tablet RxNorm: 2036495 1-2 Tablet(s) PO QID as n eeded for pain 07/19/2017 08/16/2017 Inactive Duragesic 100 mcg/hr transdermal patch RxNorm: 012296 2 Application TD Q48H for pain 07/19/2017 08/16/2017 Inactive Ventolin HFA 90 mcg/actuation aerosol inhaler RxNorm: 357825 2 Puff(s) INH Q4H as needed 07/12/2017 09/02/2017 Inactive Abilify 2 mg tablet RxNorm: 422264 1 Tablet(s) PO QD TA KE ONE TABLET BY MOUTH DAILY 07/06/2017 08/11/2017 Inactive gabapentin 800 mg tablet RxNorm: 962606 1 Tablet(s) PO TID 06/22/20 17 07/05/2017 Inactive Chantix Starting Month Box 0.5 mg (11)-1 mg (42) table ts in dose pack RxNorm: 661677 TAKE BY MOUTH INSTRUCTED - PER PACKAGE INSTRUCTIONS 06/0707/04/2017 Inactive Ventolin HFA 90 mcg/actuation aerosol inhaler RxNorm: 954383 2 Puff(s) INH Q4H as needed 05/26/2017 07/12/2017 Inactive Duragesic 100 mcg/hr transdermal patch RxNorm: 222663 2 Application TD Q48H for pain 05/19/2017 06/17/2017 Inactive oxycodone 10 mg tablet RxNorm: 1205759 1-2 Tablet(s) PO QID as n eeded for pain 05/19/2017 07/18/2017 Inactive Abilify 2 mg tablet RxNorm: 267515 TAKE ONE TABLET BY MOUTH DAILY 0 05/10/2017 07/05/2017 Inactive Synthroid 112 mcg tablet RxNorm: 921627 1 Tablet(s) PO QD 05/06/2017 08/10/2017 Inactive metformin ER 500 mg tablet,extended release 24 hr RxNorm: 86 0975 1 Tablet(s) PO QD 05/06/2017 08/10/2017 Inactive Topamax 100 mg tablet RxNorm: 471668 1 Tablet(s) PO QHS 05/06/2017 Inactive Premarin 0.45 mg tablet RxNorm: 754314 1 Tablet(s) PO QD 05/06/2017 0 04/15/2018 Inactive orphenadrine citrate ER 100 mg tablet,extended release RxNor m: 920296 1 Tablet(s) PO TID for muscle spasm--replaces methocarbamol 04/29/2017 Inactive oxycodone 10 mg tablet RxNorm: 1075933 1-2 Tablet(s) PO QID as n eeded for pain 04/21/2017 05/18/2017 Inactive Duragesic 100 mcg/hr transdermal patch RxNorm: 771407 2 Application TD Q48H for pain 04/21/2017 05/18/2017 Inactive fluoxetine 40 mg capsule RxNorm: 885003 Capsule(s) TAKE ONE CAPSULE BY MOUTH EVERY MORNING 04/20/2017 08/17/2017 Inactive Ventolin HFA 90 mcg/actuation aerosol inhaler RxNorm: 737366 2 Puff(s) INH Q4H as needed 04/05/2017 05/26/2017 Inactive Symbicort 160 mcg-4.5 mcg/actuation HFA aerosol inhaler RxNo rm: 2508568 2 Puff(s) INH BID 03/30/2017 04/15/2018 Inactive Spiriva with HandiHaler 18 mcg and inhalation capsules RxNor m: 061851 1 Capsule(s) INH QD USING HANDIHALER 03/30/2017 02/12/2019 Inactive Duragesic 100 mcg/hr transdermal patch RxNorm: 347569 2 Application TD Q48H for pain 03/18/2017 04/16/2017 Inactive oxycodone 10 mg tablet RxNorm: 0409620 1-2 Tablet(s) PO QID as n eeded for pain 03/18/2017 04/20/2017 Inactive metformin ER 500 mg tablet,extended release 24 hr RxNorm: 86 0975 Tablet(s) TAKE ONE TABLET BY MOUTH DAILY 03/01/2017 05/06/2017 Inactive Premarin 0.45 mg tablet RxNorm: 681641 Tablet(s) TAKE ONE TABLE T BY MOUTH DAILY 03/01/2017 05/06/2017 Inactive Synthroid 112 mcg tablet RxNorm: 911284 Tablet(s) TAKE ONE TABLET BY MOUTH DAILY 03/01/2017 05/06/2017 Inactive Daliresp 500 mcg tablet RxNorm: 8480065 1 Tablet(s) PO QD 03/01/2017 09/06/2017 Inactive 16.2 mg-0.1037 mg-0.0194 mg tablet RxNorm: 1173813 Tablet(s) PO PRN for gas and cramping 02/23/2017 04/28/2017 Inactive TAKE TWO TABLET S BY MOUTH THREE TIMES A DAY NEEDED FOR GAS AND CRAMPING gabapentin 800 mg tablet RxNorm: 089659 1 Tablet(s) PO TID repl aces 600mg 02/23/2017 04/28/2017 Inactive Duragesic 100 mcg/hr transdermal patch RxNorm: 443517 2 Application TD Q48H for pain 02/17/2017 03/17/2017 Inactive fluoxetine 20 mg capsule RxNorm: 862241 1 Capsule(s) PO QD 02/18/20 17 08/12/2017 Inactive oxycodone 20 mg tablet RxNorm: 4065299 1 Tablet(s) PO QID as nee ded for pain 02/17/2017 03/17/2017 Inactive Ventolin HFA 90 mcg/actuation aerosol inhaler RxNorm: 973308 INHALE TWO PUFFS BY MOUTH EVERY 4 HOURS NEEDED 02/15/2017 04/05/2017 Inactive Silvadene 1 % topical cream RxNorm: 559472 1 Application TOP BI D to burn area 02/01/2017 09/22/2017 Inactive Topamax 100 mg tablet RxNorm: 249001 TAKE ONE TABLET BY MOUTH EVERY NIGHT AT BEDTIME 01/29/2017 05/06/2017 Inactive Chantix Starting Month Box 0.5 mg (11)-1 mg (42) table ts in dose pack RxNorm: 275185 Tablet(s) PO as directed 01/29/2017 06/01/2017 Inactive Abilify 2 mg tablet RxNorm: 115895 TAKE ONE TABLET BY MOUTH DAILY 0 01/26/2017 04/25/2017 Inactive Chantix Starting Month Box 0.5 mg (11)-1 mg (42) table ts in dose pack RxNorm: 493966 Tablet(s) PO as directed 01/20/2017 01/28/2017 Inactive gabapentin 600 mg tablet RxNorm: 069824 1 Tablet(s) PO TID 01/21/2002/22/2017 Inactive Chantix Continuing Month Box 1 mg tablet RxNorm: 516940 1 Table t(s) PO BID 12/31/2016 06/01/2017 Inactive Spiriva with HandiHaler 18 mcg and inhalation capsules RxNor m: 531694 INHALE THE ENTIRE CONTENTS OF 1 CAPSULE ONCE A DAY USING HANDIHALER 12/31/201607/2017 Inactive Synthroid 112 mcg tablet RxNorm: 365824 TAKE ONE TABLET BY MOUT H DAILY 12/30/2016 03/01/2017 Inactive metformin ER 500 mg tablet,extended release 24 hr RxNorm: 86 0975 TAKE ONE TABLET BY MOUTH DAILY 12/30/2016 03/01/2017 Inactive Premarin 0.45 mg tablet RxNorm: 519229 TAKE ONE TABLET BY MOUTH DAILY 12/30/2016 03/01/2017 Inactive omeprazole 40 mg capsule,delayed release RxNorm: 931597 TAKE ONE CAPSULE BY MOUTH DAILY 12/30/2016 01/25/2018 Inactive Ventolin HFA 90 mcg/actuation aerosol inhaler RxNorm: 977160 INHALE TWO PUFFS BY MOUTH EVERY 4 HOURS NEEDED 12/28/2016 02/13/2017 Inactive fluoxetine 40 mg capsule RxNorm: 221726 TAKE ONE CAPSULE BY BENOIT TH EVERY MORNING 12/15/2016 04/20/2017 Inactive Chantix Continuing Month Box 1 mg tablet RxNorm: 323188 TAKE ONE TABLET BY MOUTH TWICE A DAY 12/04/2016 12/31/2016 Inactive doxycycline hyclate 100 mg capsule RxNorm: 7382708 1 Capsule(s) PO BID 12/01/2016 12/07/2016 Inactive Levaquin 750 mg tablet RxNorm: 978606 1 Tablet(s) PO QD 12/01/2016 Inactive Abilify 2 mg tablet RxNorm: 574323 TAKE ONE TABLET BY MOUTH DAILY 0 11/25/2016 11/30/2016 Inactive Ventolin HFA 90 mcg/actuation aerosol inhaler RxNorm: 308365 INHALE TWO PUFFS BY MOUTH EVERY 4 HOURS NEEDED 11/02/2016 12/19/2016 Inactive Chantix Continuing Month Box 1 mg tablet RxNorm: 791047 Tablet(s) PO as directed 10/30/2016 12/03/2016 Inactive Symbicort 160 mcg-4.5 mcg/actuation HFA aerosol inhaler RxNo rm: 7052742 INHALE TWO PUFFS TWO TIMES A DAY 10/30/2016 03/30/2017 Inactive Abilify 2 mg tablet RxNorm: 278741 1 Tablet(s) PO QD 10/27/201611/24 Inactive amoxicillin 500 mg capsule RxNorm: 105691 1 Capsule(s) PO TID 10/1410/23/2016 Inactive amoxicillin 500 mg capsule RxNorm: 961784 1 Capsule(s) PO TID 10/1410/13/2016 Inactive Synthroid 112 mcg tablet RxNorm: 867819 TAKE ONE TABLET BY MOUT H DAILY 09/28/2016 12/29/2016 Inactive Topamax 100 mg tablet RxNorm: 980634 TAKE ONE TABLET BY MOUTH EVERY NIGHT AT BEDTIME 09/28/2016 01/28/2017 Inactive Premarin 0.45 mg tablet RxNorm: 657829 TAKE ONE TABLET BY MOUTH DAILY 09/28/2016 12/29/2016 Inactive metformin ER 500 mg tablet,extended release 24 hr RxNorm: 86 0975 TAKE ONE TABLET BY MOUTH DAILY 09/28/2016 12/29/2016 Inactive Ventolin HFA 90 mcg/actuation aerosol inhaler RxNorm: 764214 INHALE TWO PUFFS BY MOUTH EVERY 4 HOURS NEEDED 09/22/2016 10/23/2016 Inactive Pulmicort 1 mg/2 mL suspension for nebulization RxNorm: 6168 19 1 Unit Dose INH BID Dx: COPD (J44.9) 09/10/2016 08/16/2017 Inactive Pulmicort 1 mg/2 mL suspension for nebulization RxNorm: 6168 19 1 Unit Dose INH BID 09/10/2016 09/09/2016 Inactive Brovana 15 mcg/2 mL solution for nebulization RxNorm: 560759 1 Unit Dose INH BID Dx: COPD (J44.9) 09/10/2016 01/25/2018 Inactive Brovana 15 mcg/2 mL solution for nebulization RxNorm: 817873 1 Unit Dose INH BID 09/10/2016 09/09/2016 Inactive ipratropium-albuterol 0.5 mg-3 mg(2.5 mg base)/3 mL ne bulization soln RxNorm: 4070877 1 Unit Dose INH Q4H as needed Dx: COPD (J44.9) 09/10/2016 0 02/12/2019 Inactive orphenadrine citrate ER 100 mg tablet,extended release RxNor m: 761871 1 Tablet(s) PO BID for muscle spasm--replaces methocarbamol 09/09/2016 Inactive Chantix Continuing Month Box 1 mg tablet RxNorm: 392033 Tablet(s) PO as directed 09/09/2016 10/30/2016 Inactive orphenadrine citrate ER 100 mg tablet,extended release RxNor m: 141731 1 Tablet(s) PO BID for muscle spasm 09/09/2016 09/08/2016 Inactive Spiriva with HandiHaler 18 mcg and inhalation capsules RxNor m: 873175 INHALE THE ENTIRE CONTENTS OF 1 CAPSULE ONCE A DAY USING HANDIHALER 09/01/201605/2017 Inactive Daliresp 500 mcg tablet RxNorm: 5998584 1 Tablet(s) PO QD 08/27/2016 03/01/2017 Inactive prednisone 20 mg tablet RxNorm: 709093 3 Tablet(s) PO T ID for 3 days then 1 po BID for 3 days then one daily for 3 days 08/26/2016 04/28/2017 Inactiv e Wellbutrin XL 300 mg 24 hr tablet, extended release RxNorm: 298184 TAKE ONE TABLET BY MOUTH EVERY MORNING 07/29/2016 10/26/2016 Inactive gabapentin 600 mg tablet RxNorm: 164916 1 Tablet(s) PO BID 06/26/20 16 12/22/2016 Inactive fluoxetine 40 mg capsule RxNorm: 022784 TAKE ONE CAPSULE BY BENOIT TH EVERY MORNING 06/24/2016 11/20/2016 Inactive Duragesic 100 mcg/hr transdermal patch RxNorm: 182098 2 Application TD Q48H for pain 06/05/2016 07/04/2016 Inactive oxycodone 10 mg tablet RxNorm: 9051575 1-2 Tablet(s) PO QID as n eeded for pain 06/05/2016 03/17/2017 Inactive Belladonna-Phenobarbital 48 mg tablet,extended release RxNor m: 2 Tablet(s) PO TID 06/05/2016 01/19/2017 Inactive Premarin 0.45 mg tablet RxNorm: 959779 TAKE ONE TABLET BY MOUTH DAILY 05/27/2016 09/23/2016 Inactive Topamax 100 mg tablet RxNorm: 122863 TAKE ONE TABLET BY MOUTH EVERY NIGHT AT BEDTIME 05/27/2016 09/27/2016 Inactive Synthroid 112 mcg tablet RxNorm: 711350 TAKE ONE TABLET BY MOUT H DAILY 05/27/2016 09/23/2016 Inactive metformin ER 500 mg tablet,extended release 24 hr RxNorm: 86 0975 TAKE ONE TABLET BY MOUTH DAILY 05/27/2016 09/23/2016 Inactive Symbicort 160 mcg-4.5 mcg/actuation HFA aerosol inhaler RxNo rm: 3847355 INHALE TWO PUFFS TWO TIMES A DAY 05/27/2016 10/23/2016 Inactive Ventolin HFA 90 mcg/actuation aerosol inhaler RxNorm: 017970 INHALE TWO PUFFS BY MOUTH EVERY 4 HOURS NEEDED 05/21/2016 07/07/2016 Inactive omeprazole 40 mg capsule,delayed release RxNorm: 708858 1 Capsu le(s) PO QD 05/06/2016 08/03/2016 Inactive metformin ER 500 mg tablet,extended release 24 hr RxNorm: 86 0975 TAKE ONE TABLET BY MOUTH DAILY 04/23/2016 05/22/2016 Inactive methocarbamol 750 mg tablet RxNorm: 175493 2 Tablet(s) PO TID as needed for muscle spasm 04/23/2016 09/08/2016 Inactive Synthroid 112 mcg tablet RxNorm: 433039 TAKE ONE TABLET BY MOUT H DAILY 04/23/2016 05/22/2016 Inactive Spiriva with HandiHaler 18 mcg and inhalation capsules RxNor m: 179660 INHALE THE ENTIRE CONTENTS OF 1 CAPSULE ONCE A DAY USING HANDIHALER 04/09/201608/2016 Inactive Diflucan 100 mg tablet RxNorm: 068941 1 Tablet(s) PO QD 04/08/2016 Inactive doxycycline hyclate 100 mg capsule RxNorm: 7549060 1 Capsule(s) PO BID 04/08/2016 04/17/2016 Inactive doxycycline hyclate 100 mg capsule RxNorm: 4936484 1 Capsule(s) PO BID 04/08/2016 04/07/2016 Inactive Diflucan 100 mg tablet RxNorm: 756918 1 Tablet(s) PO QD 04/08/2016 Inactive ondansetron HCl 4 mg tablet RxNorm: 590017 1 Tablet(s) PO Q4H as needed for nausea and vomiting 04/08/2016 09/22/2017 Inactive gabapentin 600 mg tablet RxNorm: 657011 TAKE ONE TABLET BY MOUT H TWICE A DAY 03/24/2016 06/25/2016 Inactive Synthroid 112 mcg tablet RxNorm: 521795 TAKE ONE TABLET BY MOUT H DAILY 02/25/2016 04/22/2016 Inactive Levaquin 500 mg tablet RxNorm: 286864 1 Tablet(s) PO QD 01/23/2016 Inactive prednisone 20 mg tablet RxNorm: 262036 1 Tablet(s) PO T ID for 3 days then 1 po BID for 3 days then one daily for 3 days 01/23/2016 08/25/2016 Inactiv e Courtanetuch Ultra Test strips RxNorm: TEST BLOOD SUGAR ONCE DAILY 250.00 01/09/2016 11/04/2017 Inactive methocarbamol 750 mg tablet RxNorm: 886305 2 Tablet(s) PO TID as needed for muscle spasm 01/09/2016 04/23/2016 Inactive lactulose 10 gram/15 mL oral solution RxNorm: 359175 [address](s) PO QD 01/09/2016 09/22/2017 Inactive TAKE 1 TABLESPOON BY MOUTH ONCE DAILY metformin ER 500 mg tablet,extended release 24 hr RxNorm: 86 0975 1 Tablet(s) PO QD 12/26/2015 04/22/2016 Inactive fluoxetine 20 mg capsule RxNorm: 414758 1 Capsule(s) PO QD 12/23/19 16 06/19/2016 Inactive Premarin 0.45 mg tablet RxNorm: 629292 TAKE ONE TABLET BY MOUTH DAILY 12/23/2015 05/20/2016 Inactive fluoxetine 40 mg capsule RxNorm: 757975 1 Capsule(s) PO QD 12/23/19 16 06/19/2016 Inactive TAKE ONE CAPSULE BY MOUTH EV JANKI MORNING azithromycin 500 mg tablet RxNorm: 786918 1 Tablet(s) PO QD 016 12/19/2015 Inactive Zofran 4 mg tablet RxNorm: 645522 1 Tablet(s) PO Q4H prn nausea /vomiting 12/13/2015 03/30/2018 Inactive azithromycin 500 mg tablet RxNorm: 696796 1 Tablet(s) PO QD 016 12/12/2015 Inactive Duragesic 100 mcg/hr transdermal patch RxNorm: 069629 2 Application TD Q48H for pain 12/09/2015 01/07/2016 Inactive oxycodone 10 mg tablet RxNorm: 5104336 1-2 Tablet(s) PO QID as n eeded for pain 12/09/2015 06/04/2016 Inactive Bactroban 2 % topical cream RxNorm: 528129 Application TOP BID 11/2208/25/2016 Inactive doxycycline hyclate 100 mg capsule RxNorm: 5175378 1 Capsule(s) PO BID 12/03/2015 12/12/2015 Inactive Topamax 100 mg tablet RxNorm: 844401 TAKE ONE TABLET BY MOUTH EVERY NIGHT AT BEDTIME 11/25/2015 05/22/2016 Inactive Symbicort 160 mcg-4.5 mcg/actuation HFA aerosol inhaler RxNo rm: 3761861 INHALE TWO PUFFS TWO TIMES A DAY 11/25/2015 05/22/2016 Inactive Synthroid 112 mcg tablet RxNorm: 242396 Tablet(s) TAKE ONE TABLET BY MOUTH DAILY 11/25/2015 02/22/2016 Inactive omeprazole 40 mg capsule,delayed release RxNorm: 818783 1 Capsu le(s) PO QD 11/12/2015 05/05/2016 Inactive oxycodone 10 mg tablet RxNorm: 2472670 1-2 Tablet(s) PO QID as n eeded for pain 11/05/2015 12/08/2015 Inactive Duragesic 100 mcg/hr transdermal patch RxNorm: 434884 2 Application TD Q48H for pain 11/05/2015 12/04/2015 Inactive omeprazole 40 mg capsule,delayed release RxNorm: 510677 1 Capsu le(s) PO QD 10/07/2015 11/11/2015 Inactive Januvia 100 mg tablet RxNorm: 964766 TAKE ONE TABLET BY MOUTH DAILY 09/11/2015 12/25/2015 Inactive Zithromax 500 mg tablet RxNorm: 499072 1 Tablet(s) PO QD 09/10/2015 1 Inactive prednisone 20 mg tablet RxNorm: 276414 1 Tablet(s) PO T ID for 3 days then 1 po BID for 3 days then one daily for 3 days 09/10/2015 08/25/2016 Inactiv e Wellbutrin XL 300 mg 24 hr tablet, extended release RxNorm: 371666 1 Tablet(s) PO QAM 09/10/2015 12/02/2015 Inactive Topamax 100 mg tablet RxNorm: 973530 TAKE ONE TABLET BY MOUTH EVERY NIGHT AT BEDTIME 09/02/2015 11/24/2015 Inactive Synthroid 112 mcg tablet RxNorm: 368875 TAKE ONE TABLET BY MOUT H DAILY 09/02/2015 11/25/2015 Inactive methocarbamol 750 mg tablet RxNorm: 173311 2 Tablet(s) PO TID as needed for muscle spasm 08/15/2015 01/09/2016 Inactive Wellbutrin XL 150 mg 24 hr tablet, extended release RxNorm: 003400 TAKE ONE TABLET BY MOUTH EVERY MORNING 08/13/2015 08/13/2015 Inactive gabapentin 600 mg tablet RxNorm: 875462 1 Tablet(s) PO BID 08/13/20 15 02/08/2016 Inactive Wellbutrin XL 300 mg 24 hr tablet, extended release RxNorm: 331230 1 Tablet(s) PO QAM 08/06/2015 09/09/2015 Inactive Wellbutrin XL 150 mg 24 hr tablet, extended release RxNorm: 909354 1 Tablet(s) PO QAM 07/18/2015 08/05/2015 Inactive prednisone 20 mg tablet RxNorm: 413965 1 Tablet(s) PO BID 07/18/2015 07/22/2015 Inactive doxycycline hyclate 100 mg tablet,delayed release RxNorm: 43 4018 1 Tablet(s) PO BID 07/18/2015 07/27/2015 Inactive pravastatin 40 mg tablet RxNorm: 273093 1 Tablet(s) PO QD NEEDS FASTING LAB 07/15/2015 07/14/2015 Inactive pravastatin 40 mg tablet RxNorm: 409880 1 Tablet(s) PO QD NEEDS FASTING LAB 07/15/2015 01/25/2018 Inactive Ventolin HFA 90 mcg/actuation aerosol inhaler RxNorm: 110787 2 Puff(s) INH Q4H 07/08/2015 07/07/2015 Inactive prn Premarin 0.45 mg tablet RxNorm: 281907 1 Tablet(s) PO QD 07/01/2015 0 12/22/2015 Inactive pravastatin 40 mg tablet RxNorm: 196369 1 Tablet(s) PO QD NEEDS FASTING LAB 06/14/2015 07/15/2015 Inactive Ventolin HFA 90 mcg/actuation aerosol inhaler RxNorm: 0717235 2 Puff(s) INH Q4H 06/06/2015 07/08/2015 Inactive prn albuterol sulfate 2.5 mg/3 mL (0.083 %) solution for n ebulization RxNorm: 925086 1 Unit Dose INH QID 05/30/2015 No Stop Date Active Duragesic 100 mcg/hr transdermal patch RxNorm: 745854 2 Application TD Q48H for pain 04/29/2015 05/28/2015 Inactive gabapentin 600 mg tablet RxNorm: 652486 1 Tablet(s) PO BID 04/11/2008/13/2015 Inactive Onglyza 5 mg tablet RxNorm: 271822 1 Tablet(s) PO QD for blood suga r 04/10/2015 04/15/2015 Inactive [Brand Copay Card: RxBIN:[id number] PCN:CRISTIANA RxGRP:[id number] ID#:[id number]] methocarbamol 750 mg tablet RxNorm: 054821 2 Tablet(s) PO TID as needed for muscle spasm 03/28/2015 08/15/2015 Inactive pravastatin 40 mg tablet RxNorm: 580458 1 Tablet(s) PO QD 03/19/2015 03/18/2015 Inactive pravastatin 40 mg tablet RxNorm: 819442 1 Tablet(s) PO QD 03/19/2015 06/14/2015 Inactive lactulose 10 gram/15 mL oral solution RxNorm: 014056 [address]s) PO QD 03/07/2015 01/09/2016 Inactive TAKE 1 TABLESPOON BY MOUTH ONCE DAILY oxycodone 20 mg tablet RxNorm: 2287523 1 Tablet(s) PO QID as nee ded for pain 03/05/2015 07/08/2015 Inactive Topamax 100 mg tablet RxNorm: 762940 1 Tablet(s) PO QHS TAKE ONE TABLET BY MOUTH AT BEDTIME 02/25/2015 02/12/2019 Inactive metformin ER 500 mg tablet,extended release 24 hr RxNorm: 86 0975 1 Tablet(s) PO QD 02/11/2015 03/04/2015 Inactive take one tablet by mouth every day Daliresp 500 mcg tablet RxNorm: 7461996 1 Tablet(s) PO QD 02/11/2015 08/09/2015 Inactive Endocet 10 mg-325 mg tablet RxNorm: 5977415 1 Tablet(s) PO Q4H as needed for pain 01/23/2015 01/23/2015 Inactive gabapentin 600 mg tablet RxNorm: 246049 1 Tablet(s) PO BID 01/23/20 15 04/11/2015 Inactive methocarbamol 750 mg tablet RxNorm: 516654 2 Tablet(s) PO TID as needed for muscle spasm 01/15/2015 02/13/2015 Inactive fluoxetine 40 mg capsule RxNorm: 076219 1 Capsule(s) PO QD 01/14/20 15 12/23/2015 Inactive TAKE ONE CAPSULE BY MOUTH EV JANKI MORNING fluoxetine 20 mg capsule RxNorm: 926165 1 Capsule(s) PO QD 01/14/20 15 12/23/2015 Inactive Premarin 0.45 mg tablet RxNorm: 787028 1 Tablet(s) PO QD 01/02/2015 0 07/01/2015 Inactive Endocet 10 mg-325 mg tablet RxNorm: 5845761 1-2 Tablet(s) PO Q4H 02/12/2019 Inactive PRN PAIN Duragesic 100 mcg/hr transdermal patch RxNorm: 548189 2 Application TD Q48H for pain 12/25/2014 01/23/2015 Inactive Topamax 100 mg tablet RxNorm: 398156 1 Tablet(s) PO QHS TAKE ONE TABLET BY MOUTH AT BEDTIME 12/25/2014 02/24/2015 Inactive Tudorza Pressair 400 mcg/actuation breath activated RxNorm: 1394225 1 BID INHALE ONE PUFF INTO LUNGS TWO TIMES A DAY 12/17/2014 05/15/2015 Inactive Endocet 10 mg-325 mg tablet RxNorm: 5841905 1-2 Tablet(s) PO Q4H 12/19/2014 Inactive PRN PAIN Duragesic 100 mcg/hr transdermal patch RxNorm: 334675 2 Application TD Q48H for pain 11/20/2014 12/24/2014 Inactive OneTouch Ultra Test strips RxNorm: TEST BLOOD SUGAR ONCE DAILY 250.00 11/16/2014 01/08/2016 Inactive omeprazole 40 mg capsule,delayed release RxNorm: 229322 1 Capsu le(s) PO QD 11/13/2014 11/12/2015 Inactive metformin ER 500 mg tablet,extended release 24 hr RxNorm: 86 0975 1 Tablet(s) PO QD 11/12/2014 02/11/2015 Inactive take one tablet by mouth every day Symbicort 160 mcg-4.5 mcg/actuation HFA aerosol inhaler RxNo rm: 6786409 2 Puff(s) INH BID 11/12/2014 03/11/2015 Inactive INHALE 2 PUFFS O RALLY TWO TIMES A DAY gabapentin 800 mg tablet RxNorm: 693269 1 Tablet(s) PO QD TAKE ONE TABLET BY MOUTH ONCE A DAY 10/22/2014 01/01/2015 Inactive Endocet 10 mg-325 mg tablet RxNorm: 0696781 1-2 Tablet(s) PO Q4H 11/15/2014 Inactive PRN PAIN Duragesic 100 mcg/hr transdermal patch RxNorm: 406860 2 Application TD Q48H for pain 10/17/2014 11/19/2014 Inactive gabapentin 800 mg tablet RxNorm: 762547 1 Tablet(s) PO QD TAKE ONE TABLET BY MOUTH ONCE A DAY 10/04/2014 10/21/2014 Inactive Premarin 0.9 mg tablet RxNorm: 028456 1 Tablet(s) PO QD TAKE ONE TABLET BY MOUTH ONCE A DAY 10/04/2014 01/01/2015 Inactive Spiriva with HandiHaler 18 mcg & inhalation capsules RxNorm: 211664 1 Capsule(s) INH QD 10/03/2014 04/30/2015 Inactive Levaquin 500 mg tablet RxNorm: 533499 1 Tablet(s) PO QD 10/03/2014 Inactive prednisone 20 mg tablet RxNorm: 804343 1 Tablet(s) PO QD 10/03/2014 1 12/09/2013 Inactive Duragesic 100 mcg/hr transdermal patch RxNorm: 618056 2 Application TD Q48H for pain 09/18/2014 10/16/2014 Inactive Endocet 10 mg-325 mg tablet RxNorm: 8948919 1-2 Tablet(s) PO Q4H 10/16/2014 Inactive PRN PAIN Synthroid 112 mcg tablet RxNorm: 519060 1 Tablet(s) QD 09/10/2014 Inactive Synthroid 112 mcg tablet RxNorm: 028343 TAKE ONE TABLET BY MOUTH ONE TIME A DAY. NEEDS LABS 09/10/2014 02/06/2015 Inactive omeprazole 40 mg capsule,delayed release RxNorm: 346605 1 Capsu le(s) PO QD 09/03/2014 11/13/2014 Inactive omeprazole 40 mg capsule,delayed release RxNorm: 117643 1 Capsu le(s) PO QD 09/03/2014 09/02/2014 Inactive Spiriva with HandiHaler 18 mcg & inhalation capsules RxNorm: 893263 1 Capsule(s) INH QD 08/27/2014 10/02/2014 Inactive gabapentin 600 mg tablet RxNorm: 736740 1 Tablet(s) PO BID 08/27/20 14 10/22/2014 Inactive Endocet 10 mg-325 mg tablet RxNorm: 3132984 1-2 Tablet(s) PO Q4H 09/17/2014 Inactive PRN PAIN fentanyl 100 mcg/hr transdermal patch RxNorm: 633737 1 Unit Dos e TD QD 08/21/2014 09/19/2014 Inactive Daliresp 500 mcg tablet RxNorm: 6218929 1 Tablet(s) PO QD 08/13/2014 02/11/2015 Inactive Synthroid 112 mcg tablet RxNorm: 203889 TAKE ONE TABLET BY MOUTH ONE TIME A DAY. NEEDS LABS 08/10/2014 09/10/2014 Inactive Endocet 10 mg-325 mg tablet RxNorm: 4515650 1-2 Tablet(s) PO Q4H 08/17/2014 Inactive PRN PAIN Duragesic 100 mcg/hr transdermal patch RxNorm: 108232 2 Application TD Q48H for pain 07/19/2014 09/17/2014 Inactive fluoxetine 40 mg capsule RxNorm: 317583 1 Capsule(s) PO QD 07/17/20 14 01/14/2015 Inactive TAKE ONE CAPSULE BY MOUTH EV JANKI MORNING fluoxetine 20 mg capsule RxNorm: 474245 1 Capsule(s) PO QD 07/17/20 14 01/14/2015 Inactive Spiriva with HandiHaler 18 mcg & inhalation capsules RxNorm: 778888 1 Capsule(s) INH QD 07/17/2014 08/26/2014 Inactive INHALE CONTENTS OF 1 CAPSULE(S) WITH HANDIHALER ONCE DAILY Zofran 4 mg tablet RxNorm: 240561 1 Tablet(s) PO Q4H prn nausea 07/25/2014 Inactive Synthroid 112 mcg tablet RxNorm: 267845 1 Tablet(s) PO QD 07/09/2014 07/09/2014 Inactive methocarbamol 750 mg tablet RxNorm: 555637 2 Tablet(s) PO TID as needed for muscle spasm 07/09/2014 09/06/2014 Inactive Synthroid 112 mcg tablet RxNorm: 830269 1 Tablet(s) PO QD - nee d labs 07/09/2014 08/07/2014 Inactive Medrol (Aníbal) 4 mg tablets in a dose pack RxNorm: 674375 6 Tablet(s) PO QD --then as directed 07/03/2014 07/08/2014 Inactive Tudorza Pressair 400 mcg/actuation breath activated RxNorm: 9382123 1 Puff(s) INH BID 07/03/2014 12/17/2014 Inactive cefdinir 300 mg capsule RxNorm: 030109 1 Capsule(s) PO BID 07/03/20 14 07/12/2014 Inactive Topamax 100 mg tablet RxNorm: 617505 Tablet(s) TAKE ONE TABLET BY MOUTH AT BEDTIME 07/02/2014 02/25/2015 Inactive Duragesic 100 mcg/hr transdermal patch RxNorm: 403568 2 Application TD Q48H for pain 06/25/2014 07/18/2014 Inactive Endocet 10 mg-325 mg tablet RxNorm: 9332659 1-2 Tablet(s) PO Q4H 07/18/2014 Inactive PRN PAIN metformin ER 500 mg tablet,extended release 24 hr RxNorm: 86 0975 1 Tablet(s) PO QD Needs labs 06/18/2014 07/01/2014 Inactive take one tablet by mouth every day Duragesic 100 mcg/hr transdermal patch RxNorm: 224184 2 Application TD Q48H for pain 05/22/2014 06/24/2014 Inactive Synthroid 112 mcg tablet RxNorm: 372217 1 Tablet(s) PO QD 05/22/2014 07/09/2014 Inactive Endocet 10 mg-325 mg tablet RxNorm: 7589783 1-2 Tablet(s) PO Q4H 06/20/2014 Inactive PRN PAIN Endocet 10 mg-325 mg tablet RxNorm: 9691173 1-2 Tablet(s) PO Q4H 05/21/2014 Inactive PRN PAIN Duragesic 100 mcg/hr transdermal patch RxNorm: 833848 2 Application TD Q48H for pain 04/25/2014 05/21/2014 Inactive Daliresp 500 mcg tablet RxNorm: 7193187 1 Tablet(s) PO QD 04/24/2014 08/13/2014 Inactive Symbicort 160 mcg-4.5 mcg/actuation HFA aerosol inhaler RxNo rm: 3749254 2 Puff(s) INH BID 04/24/2014 08/21/2014 Inactive INHALE 2 PUFFS O RALLY TWO TIMES A DAY metformin ER 500 mg tablet,extended release 24 hr RxNorm: 86 0975 1 Tablet(s) PO QD 04/24/2014 11/12/2014 Inactive TAKE ONE TABLET BY MOUTH EVERY DAY [AttnRPh:Saving Apply/Adjudicate RxGRP:LDMGRP RxBIN:[id number] RxPCN:2012 PCode:01 ID#:[id number]] Symbicort 160 mcg-4.5 mcg/actuation HFA aerosol inhaler RxNo rm: 1290413 2 Puff(s) INH BID 04/24/2014 11/12/2014 Inactive INHALE 2 PUFFS O RALLY TWO TIMES A DAY Premarin 0.9 mg tablet RxNorm: 775722 1 Tablet(s) PO QD 04/24/2014 Inactive TAKE ONE TABLET BY MOUTH EVERY DAY metformin ER 500 mg tablet,extended release 24 hr RxNorm: 86 0975 1 Tablet(s) PO QD Needs labs 04/24/2014 06/18/2014 Inactive TAKE ONE TABLET BY MOUTH EVERY DAY [AttnRPh:Saving Apply/Adjudicate RxGRP:LDMGRP RxBIN:[id number] RxPCN:2012 PCode:01 ID#:[id number]] gabapentin 800 mg tablet RxNorm: 757800 1 Tablet(s) PO QD 04/24/2014 10/04/2014 Inactive TAKE ONE TABLET BY MOUTH EVERY DAY Topamax 100 mg tablet RxNorm: 958927 1 Tablet(s) PO QHS 04/17/2014 Inactive Topamax 100 mg tablet RxNorm: 977168 TAKE ONE TABLET BY MOUTH A T BEDTIME 04/17/2014 07/01/2014 Inactive Tudorza Pressair 400 mcg/actuation breath activated RxNorm: 6654466 1 Puff(s) INH BID 04/11/2014 07/02/2014 Inactive Duragesic 100 mcg/hr transdermal patch RxNorm: 599117 2 Application TD Q48H for pain 03/27/2014 04/24/2014 Inactive Endocet 10 mg-325 mg tablet RxNorm: 6659540 1-2 Tablet(s) PO Q4H 04/24/2014 Inactive PRN PAIN Robaxin 750 mg tablet RxNorm: 668901 2 Tablet(s) PO TID as need ed for spasm 02/23/2014 03/28/2015 Inactive Duragesic 100 mcg/hr transdermal patch RxNorm: 922249 2 Application TD Q48H for pain 02/23/2014 No Stop Date Active Endocet 10 mg-325 mg tablet RxNorm: 9828527 1-2 Tablet(s) PO Q4H 03/23/2014 Inactive PRN PAIN Synthroid 112 mcg tablet RxNorm: 495535 1 Tablet(s) PO QD TAKE ONE TABLET BY MOUTH EVERY DAY 02/15/2014 05/22/2014 Inactive Zithromax 500 mg tablet RxNorm: 663507 1 Tablet(s) PO QD 01/30/2014 0 02/05/2014 Inactive Diflucan 100 mg tablet RxNorm: 785532 1 Tablet(s) PO QD 01/30/2014 Inactive prednisone 20 mg tablet RxNorm: 360111 1 Tablet(s) PO BID 01/30/2014 02/05/2014 Inactive fluoxetine 40 mg capsule RxNorm: 398544 1 Capsule(s) PO QD 01/23/20 14 07/16/2014 Inactive TAKE ONE CAPSULE BY MOUTH EV JANKI MORNING fluoxetine 40 mg capsule RxNorm: 994149 1 Capsule(s) PO QD 01/23/20 14 07/17/2014 Inactive TAKE ONE CAPSULE BY MOUTH EV JANKI MORNING cefdinir 300 mg capsule RxNorm: 922475 1 Capsule(s) PO BID 01/16/20 14 01/29/2014 Inactive Zithromax 500 mg tablet RxNorm: 564388 1 Tablet(s) PO QD 01/16/2014 0 01/22/2014 Inactive prednisone 20 mg tablet RxNorm: 685165 1 Tablet(s) PO BID 01/16/2014 01/22/2014 Inactive Spiriva with HandiHaler 18 mcg and inhalation capsules RxNor m: 971376 1 Capsule(s) INH QD 12/18/2013 07/17/2014 Inactive INHALE CONTENT S OF 1 CAPSULE(S) WITH HANDIHALER ONCE DAILY fluoxetine 20 mg capsule RxNorm: 911659 1 Capsule(s) PO QD 12/18/19 14 06/15/2014 Inactive Spiriva with HandiHaler 18 mcg & inhalation capsules RxNorm: 685317 1 Capsule(s) INH QD 12/18/2013 06/15/2014 Inactive INHALE CONTENTS OF 1 CAPSULE(S) WITH HANDIHALER ONCE DAILY fluoxetine 20 mg capsule RxNorm: 792815 1 Capsule(s) PO QD 12/18/19 14 07/17/2014 Inactive cefdinir 300 mg capsule RxNorm: 536371 2 Capsule(s) PO QD 12/12/2013 12/21/2013 Inactive Duragesic 100 mcg/hr transdermal patch RxNorm: 099327 2 Application TD Q48H for pain 12/08/2013 12/07/2013 Inactive Topamax 100 mg tablet RxNorm: 161475 1 Tablet(s) PO QHS 12/04/2013 Inactive Endocet 10 mg-325 mg tablet RxNorm: 0765068 1-2 Tablet(s) PO Q4H 12/26/2013 Inactive PRN PAIN Robaxin 750 mg tablet RxNorm: 338119 2 Tablet(s) PO TID as need ed for spasm 11/07/2013 01/05/2014 Inactive gabapentin 800 mg tablet RxNorm: 772313 1 Tablet(s) PO QD 10/16/2013 04/24/2014 Inactive TAKE ONE TABLET BY MOUTH EVERY DAY Symbicort 160 mcg-4.5 mcg/actuation HFA aerosol inhaler RxNo rm: 9883375 2 Puff(s) INH BID 10/16/2013 04/24/2014 Inactive INHALE 2 PUFFS O RALLY TWO TIMES A DAY Premarin 0.9 mg tablet RxNorm: 466844 1 Tablet(s) PO QD 10/16/2013 Inactive TAKE ONE TABLET BY MOUTH EVERY DAY metformin ER 500 mg tablet,extended release 24 hr RxNorm: 86 0975 1 Tablet(s) PO QD 10/16/2013 04/24/2014 Inactive TAKE ONE TABLET BY MOUTH EVERY DAY Daliresp 500 mcg tablet RxNorm: 8170778 1 Tablet(s) PO QD 10/16/2013 04/24/2014 Inactive Robaxin 750 mg tablet RxNorm: 492397 2 Tablet(s) PO TID as need ed for spasm 10/10/2013 11/06/2013 Inactive Duragesic 100 mcg/hr transdermal patch RxNorm: 981491 2 Application TD Q48H for pain 10/09/2013 No Stop Date Active Soma 350 mg tablet RxNorm: 052163 1 Tablet(s) PO TID 09/27/201310/09 Inactive TAKE ONE TABLET BY MOUTH THREE TIMES A D AY lactulose 10 gram/15 mL oral solution RxNorm: 588215 [address](s) PO QD 09/13/2013 03/07/2015 Inactive TAKE 1 TABLESPOON BY MOUTH ONCE DAILY Duragesic 100 mcg/hr transdermal patch RxNorm: 252891 2 Application TD Q48H for pain 09/06/2013 No Stop Date Active Endocet 10 mg-325 mg tablet RxNorm: 4025565 1-2 Tablet(s) PO Q4H 09/27/2013 Inactive PRN PAIN lancets 28 gauge RxNorm: Miscellaneous As needed for blo od glucose sticks 08/24/2013 No Stop Date Active 16.2 mg-0.1037 mg-0.0194 mg tablet RxNorm: 8070222 Tablet(s) PO PRN for gas and cramping 08/24/2013 01/19/2017 Inactive TAKE TWO TABLET S BY MOUTH THREE TIMES A DAY NEEDED FOR GAS AND CRAMPING Topamax 100 mg tablet RxNorm: 112246 1 Tablet(s) PO QHS 07/31/2013 Inactive Diflucan 100 mg tablet RxNorm: 206676 1 Tablet(s) PO QD 07/27/2013 Inactive cefdinir 300 mg capsule RxNorm: 750736 1 Capsule(s) PO BID 07/26/20 13 08/08/2013 Inactive Daliresp 500 mcg tablet RxNorm: 6642054 1 Tablet(s) PO QD 07/25/2013 10/15/2013 Inactive fluoxetine 40 mg capsule RxNorm: 813783 1 Capsule(s) PO QD 07/25/20 13 01/22/2014 Inactive TAKE ONE CAPSULE BY MOUTH EV JANKI MORNING Senokot-S 8.6 mg-50 mg tablet RxNorm: 2172235 1 Tablet(s) PO BID 10/25/2013 Inactive doxycycline hyclate 100 mg capsule RxNorm: 2362003 1 Capsule(s) PO BID 06/28/2013 07/07/2013 Inactive prednisone 20 mg tablet RxNorm: 616968 1 Tablet(s) PO BID 06/28/2013 07/04/2013 Inactive Zofran 4 mg tablet RxNorm: 265124 1 Tablet(s) PO Q4H prn nausea 03/201307/05/2013 Inactive Spiriva with HandiHaler 18 mcg & inhalation capsules RxNorm: 640075 1 Capsule(s) INH QD 06/26/2013 12/18/2013 Inactive INHALE CONTENTS OF 1 CAPSULE(S) WITH HANDIHALER ONCE DAILY Synthroid 112 mcg tablet RxNorm: 160079 1 Tablet(s) PO QD TAKE ONE TABLET BY MOUTH EVERY DAY 06/19/2013 02/15/2014 Inactive fluoxetine 20 mg capsule RxNorm: 800730 1 Capsule(s) PO QD 06/19/20 13 12/18/2013 Inactive Ventolin HFA 90 mcg/actuation Aerosol Inhaler RxNorm: 4462532 2 Puff(s) INH Q4H 06/05/2013 No Stop Date Active prn Soma 350 mg tablet RxNorm: 532325 1 Tablet(s) PO TID 06/05/201307/04 Inactive TAKE ONE TABLET BY MOUTH THREE TIMES A D AY prednisone 20 mg tablet RxNorm: 977998 1 Tablet(s) PO QD 05/31/2013 0 06/06/2013 Inactive Topamax 100 mg tablet RxNorm: 493395 1 Tablet(s) PO QHS 05/22/2013 Inactive Levaquin 500 mg tablet RxNorm: 724769 1 Tablet(s) PO QD 05/03/2013 Inactive Diflucan 100 mg tablet RxNorm: 408724 1 Tablet(s) PO QD 05/03/2013 Inactive Daliresp 500 mcg tablet RxNorm: 0976265 1 Tablet(s) PO QD 05/01/2013 07/24/2013 Inactive Daliresp 500 mcg tablet RxNorm: 5185640 1 Tablet(s) PO QD 05/01/2013 04/30/2013 Inactive gabapentin 800 mg tablet RxNorm: 213454 1 Tablet(s) PO QD 04/10/2013 10/06/2013 Inactive TAKE ONE TABLET BY MOUTH EVERY DAY metformin ER 500 mg tablet,extended release 24 hr RxNorm: 86 0977 1 Tablet(s) PO QD 04/10/2013 10/06/2013 Inactive TAKE ONE TABLET BY MOUTH EVERY DAY Premarin 0.9 mg tablet RxNorm: 959412 1 Tablet(s) PO QD 04/10/2013 Inactive TAKE ONE TABLET BY MOUTH EVERY DAY Symbicort 160 mcg-4.5 mcg/actuation HFA aerosol inhaler RxNo rm: 8831978 2 Puff(s) INH BID 04/10/2013 10/06/2013 Inactive INHALE 2 PUFFS O RALLY TWO TIMES A DAY Synthroid 112 mcg tablet RxNorm: 177302 1 Tablet(s) PO QD TAKE ONE TABLET BY MOUTH EVERY DAY 04/10/2013 06/18/2013 Inactive Ventolin HFA 90 mcg/actuation Aerosol Inhaler RxNorm: 7867541 2 Puff(s) INH Q4H 04/10/2013 No Stop Date Active prn fentanyl 100 mcg/hr transdermal patch RxNorm: 555578 1 Unit Dos e TD QD 04/03/2013 05/02/2013 Inactive Endocet 10 mg-325 mg tablet RxNorm: 2453373 1-2 Tablet(s) PO Q4H 05/02/2013 Inactive PRN PAIN Topamax 100 mg tablet RxNorm: 988095 1 Tablet(s) PO QHS 03/13/2013 Inactive Reglan 10 mg tablet RxNorm: 923020 1 Tablet(s) PO QID b efore meals and at bedtime 03/13/2013 04/09/2015 Inactive fluoxetine 20 mg capsule RxNorm: 518253 1 Capsule(s) PO QD 02/28/20 13 05/27/2013 Inactive Ventolin HFA 90 mcg/actuation Aerosol Inhaler RxNorm: 8596539 2 Puff(s) INH Q4H 02/13/2013 No Stop Date Active prn fluoxetine 40 mg capsule RxNorm: 689299 1 Capsule(s) PO QD 01/31/20 13 07/24/2013 Inactive TAKE ONE CAPSULE BY MOUTH EV JANKI MORNING Soma 350 mg tablet RxNorm: 721321 1 Tablet(s) PO TID 01/20/201302/18 Inactive TAKE ONE TABLET BY MOUTH THREE TIMES A D AY Endocet 10 mg-325 mg tablet RxNorm: 6049608 1-2 Tablet(s) PO Q4H 02/06/2013 Inactive PRN PAIN MS Contin 200 mg tablet,extended release RxNorm: 508327 1 Table t(s) PO BID 01/18/2013 02/06/2013 Inactive Ventolin HFA 90 mcg/actuation Aerosol Inhaler RxNorm: 3215526 2 Puff(s) INH Q4H 01/04/2013 No Stop Date Active prn Spiriva with HandiHaler 18 mcg & inhalation capsules RxNorm: 454279 1 Capsule(s) INH QD 12/29/2012 06/25/2013 Inactive INHALE CONTENTS OF 1 CAPSULE(S) WITH HANDIHALER ONCE DAILY Spiriva with HandiHaler 18 mcg & inhalation capsules RxNorm: 953155 1 Capsule(s) INH QD 12/26/2012 12/28/2012 Inactive INHALE CONTENTS OF 1 CAPSULE(S) WITH HANDIHALER ONCE DAILY Synthroid 112 mcg tablet RxNorm: 943551 Tablet(s) PO TA KE ONE TABLET BY MOUTH EVERY DAY 12/26/2012 04/09/2013 Inactive Endocet 10 mg-325 mg tablet RxNorm: 0561920 1-2 Tablet(s) PO Q4H 01/17/2013 Inactive PRN PAIN MS Contin 200 mg tablet,extended release RxNorm: 244608 1 Table t(s) PO BID 12/21/2012 01/17/2013 Inactive fluoxetine 20 mg capsule RxNorm: 189282 1 Capsule(s) PO QD 12/06/19 13 02/26/2013 Inactive Synthroid 112 mcg tablet RxNorm: 025700 1 Tablet(s) PO QD 12/06/2012 02/12/2019 Inactive TAKE ONE TABLET BY MOUTH EVERY DAY Ventolin HFA 90 mcg/actuation Aerosol Inhaler RxNorm: 3456572 2 Puff(s) INH Q4H 12/06/2012 No Stop Date Active prn Reglan 10 mg tablet RxNorm: 282504 1 Tablet(s) PO QID b efore meals and at bedtime 11/24/2012 03/12/2013 Inactive Topamax 100 mg tablet RxNorm: 099410 1 Tablet(s) PO QHS 11/16/2012 Inactive Ventolin HFA 90 mcg/actuation Aerosol Inhaler RxNorm: 1052191 2 Puff(s) INH Q4H 11/09/2012 No Stop Date Active prn gabapentin 800 mg tablet RxNorm: 228220 1 Tablet(s) PO QD 10/27/2012 04/09/2013 Inactive TAKE ONE TABLET BY MOUTH EVERY DAY metformin ER 500 mg tablet,extended release 24 hr RxNorm: 86 0977 1 Tablet(s) PO QD 10/27/2012 04/09/2013 Inactive TAKE ONE TABLET BY MOUTH EVERY DAY Symbicort 160 mcg-4.5 mcg/actuation HFA Aerosol Inhaler RxNo rm: 3322613 2 Puff(s) INH BID 10/27/2012 04/09/2013 Inactive INHALE 2 PUFFS O RALLY TWO TIMES A DAY Premarin 0.9 mg tablet RxNorm: 688696 1 Tablet(s) PO QD 10/27/2012 Inactive TAKE ONE TABLET BY MOUTH EVERY DAY Endocet 10 mg-325 mg tablet RxNorm: 1837091 1-2 Tablet(s) PO Q4H 11/24/2012 Inactive PRN PAIN MS Contin 200 mg tablet,extended release RxNorm: 592852 1 Table t(s) PO BID 10/26/2012 11/24/2012 Inactive Soma 350 mg tablet RxNorm: 987068 1 Tablet(s) PO TID 10/04/201211/02 Inactive TAKE ONE TABLET BY MOUTH THREE TIMES A D AY Ventolin HFA 90 mcg/actuation Aerosol Inhaler RxNorm: 5732293 2 Puff(s) INH Q4H 10/03/2012 No Stop Date Active prn Daliresp 500 mcg tablet RxNorm: 8330702 1 Tablet(s) PO QD 09/28/2012 09/27/2012 Inactive Daliresp 500 mcg tablet RxNorm: 1880943 1 Tablet(s) PO QD 09/28/2012 04/25/2013 Inactive fluoxetine 20 mg capsule RxNorm: 857167 1 Capsule(s) PO QD 09/05/2012/06/2012 Inactive Topamax 50 mg tablet RxNorm: 386335 Tablet(s) PO for 1w k then 1 po q HS for 1wk then 2 po q HS 08/29/2012 09/27/2012 Inactive TAKE 1/2 TABLET BY MOUTH AT BEDTIME FOR 1 WEEK, THEN 1 TABLET AT BEDTIME FOR 1 WEEK, THEN 2 TABLETS AT BEDTIME Topamax 100 mg tablet RxNorm: 694734 1 Tablet(s) PO QHS 08/29/2012 Inactive Ventolin HFA 90 mcg/actuation Aerosol Inhaler RxNorm: 5422390 2 Puff(s) INH Q4H 08/19/2012 No Stop Date Active prn Ventolin HFA 90 mcg/actuation Aerosol Inhaler RxNorm: 4296932 2 Puff(s) INH Q4H 08/15/2012 No Stop Date Active prn Synthroid 112 mcg tablet RxNorm: 243458 1 Tablet(s) PO QD 08/10/2012 11/07/2012 Inactive TAKE ONE TABLET BY MOUTH EVERY DAY Synthroid 112 mcg tablet RxNorm: 763533 1 Tablet(s) PO QD 08/01/2012 08/09/2012 Inactive TAKE ONE TABLET BY MOUTH EVERY DAY Reglan 10 mg tablet RxNorm: 210406 1 Tablet(s) PO QID b efore meals and at bedtime 08/01/2012 11/23/2012 Inactive fluoxetine 40 mg capsule RxNorm: 553363 1 Capsule(s) PO QD 08/01/2001/27/2013 Inactive TAKE ONE CAPSULE BY MOUTH EV JANKI MORNING Ventolin HFA 90 mcg/actuation Aerosol Inhaler RxNorm: 1358513 2 Puff(s) INH Q4H 08/01/2012 No Stop Date Active prn Soma 350 mg tablet RxNorm: 850619 1 Tablet(s) PO TID 07/20/201208/18 Inactive TAKE ONE TABLET BY MOUTH THREE TIMES A D AY Spiriva with HandiHaler 18 mcg & inhalation capsules RxNorm: 857483 1 Capsule(s) INH 07/01/2012 12/25/2012 Inactive INHALE CONTENTS OF 1 CAPSULE(S) WITH HANDIHALER ONCE DAILY Zithromax 250 mg Tab RxNorm: 222316 2 Tablet(s) PO QD 06/28/201206/22 Inactive MS Contin 200 mg tablet,extended release RxNorm: 476921 1 Table t(s) PO BID 06/28/2012 07/27/2012 Inactive Endocet 10 mg-325 mg tablet RxNorm: 7064834 1-2 Tablet(s) PO Q4H 07/27/2012 Inactive PRN PAIN Topamax 100 mg tablet RxNorm: 135331 1 Tablet(s) PO QHS 06/28/2012 Inactive 16.2 mg-0.1037 mg-0.0194 mg tablet RxNorm: 7040269 Tablet(s) PO PRN for gas and cramping 06/08/2012 08/23/2013 Inactive TAKE TWO TABLET S BY MOUTH THREE TIMES A DAY NEEDED FOR GAS AND CRAMPING Ventolin HFA 90 mcg/actuation Aerosol Inhaler RxNorm: 0658727 2 Puff(s) INH Q4H 05/23/2012 No Stop Date Active prn Ventolin HFA 90 mcg/actuation Aerosol Inhaler RxNorm: 2421234 2 Puff(s) INH Q4H 05/11/2012 No Stop Date Active prn Synthroid 112 mcg tablet RxNorm: 184704 1 Tablet(s) PO QD 05/09/2012 07/31/2012 Inactive TAKE ONE TABLET BY MOUTH EVERY DAY gabapentin 800 mg tablet RxNorm: 108032 1 Tablet(s) PO QD 05/09/2012 10/26/2012 Inactive TAKE ONE TABLET BY MOUTH EVERY DAY fluoxetine 40 mg capsule RxNorm: 576377 1 Capsule(s) PO QD 05/09/2007/31/2012 Inactive TAKE ONE CAPSULE BY MOUTH EV JANKI MORNING metformin ER 500 mg tablet,extended release 24 hr RxNorm: 86 0977 1 Tablet(s) PO QD 05/09/2012 10/26/2012 Inactive TAKE ONE TABLET BY MOUTH EVERY DAY Premarin 0.9 mg tablet RxNorm: 678300 1 Tablet(s) PO QD 05/09/2012 Inactive TAKE ONE TABLET BY MOUTH EVERY DAY Symbicort 160 mcg-4.5 mcg/actuation HFA Aerosol Inhaler RxNo rm: 9468360 2 Puff(s) INH BID 05/09/2012 10/26/2012 Inactive INHALE 2 PUFFS O RALLY TWO TIMES A DAY Endocet 10 mg-325 mg Tab RxNorm: 0803655 1-2 Tablet(s) PO Q4H 04/2705/26/2012 Inactive PRN PAIN MS Contin 200 mg Tab RxNorm: 425293 1 Tablet(s) PO BID 04/26/201202/2012 Inactive Ventolin HFA 90 mcg/actuation Aerosol Inhaler RxNorm: 7948076 2 Puff(s) INH Q4H 04/25/2012 05/10/2012 Inactive prn Soma 350 mg tablet RxNorm: 744420 2 Tablet(s) PO TID 04/19/201207/19 Inactive TAKE ONE TABLET BY MOUTH THREE TIMES A D AY Ventolin HFA 90 mcg/actuation Aerosol Inhaler RxNorm: 3586787 2 Puff(s) INH Q4H 04/12/2012 04/24/2012 Inactive prn Reglan 10 mg tablet RxNorm: 379992 1 Tablet(s) PO QID b efore meals and at bedtime 04/11/2012 07/31/2012 Inactive MS Contin 200 mg Tab RxNorm: 804924 1 Tablet(s) PO BID 03/30/201202/2012 Inactive Endocet 10 mg-325 mg Tab RxNorm: 9298321 1-2 Tablet(s) PO Q4H 03/3004/26/2012 Inactive PRN PAIN MS Contin 200 mg Tab RxNorm: 096175 1 Tablet(s) PO BID 03/02/201206/2012 Inactive Endocet 10 mg-325 mg Tab RxNorm: 7784146 1-2 Tablet(s) PO Q4H 03/0203/29/2012 Inactive PRN PAIN Daliresp 500 mcg tablet RxNorm: 7574906 1 Tablet(s) PO QD 03/01/2012 09/28/2012 Inactive MS Contin 200 mg Tab RxNorm: 357339 1 Tablet(s) PO BID 02/02/201208/2012 Inactive Endocet 10 mg-325 mg Tab RxNorm: 2697982 1-2 Tablet(s) PO Q4H 02/0103/01/2012 Inactive PRN PAIN fluoxetine 40 mg capsule RxNorm: 306588 1 Capsule(s) PO QD 02/02/2008/01/2012 Inactive TAKE ONE CAPSULE BY MOUTH EV JANKI MORNING Synthroid 112 mcg Tab RxNorm: 639344 1 Tablet(s) PO QD 01/18/2012 Inactive TAKE ONE TABLET BY MOUTH EVERY DAY lactulose 10 gram/15 mL oral solution RxNorm: 016848 [address]s) PO QD 01/18/2012 No Stop Date Active TAKE 1 TABLESPOON BY MOUTH ONCE DAILY Ventolin HFA 90 mcg/actuation Aerosol Inhaler RxNorm: 0145259 2 Puff(s) INH Q4H 01/18/2012 04/11/2012 Inactive prn MS Contin 200 mg Tab RxNorm: 602192 1 Tablet(s) PO BID 01/05/201210/2012 Inactive Endocet 10 mg-325 mg Tab RxNorm: 7838037 1-2 Tablet(s) PO Q4H 01/0502/01/2012 Inactive PRN PAIN ProAir HFA 90 mcg/Actuation Aerosol Inhaler RxNorm: 0030737 2 Pu ff(s) INH Q4H 12/21/2011 No Stop Date Active prn for wheezing or shortness of breath Spiriva with HandiHaler 18 mcg & inhalation Caps RxNorm: 580 261 1 Capsule(s) INH 12/21/2011 06/30/2012 Inactive INHALE CONTENTS OF 1 CAPSULE(S) WITH HANDIHALER ONCE DAILY Reglan 10 mg Tab RxNorm: 117273 1 Tablet(s) PO QID before meals and at bedtime 12/21/2011 04/10/2012 Inactive Synthroid 112 mcg Tab RxNorm: 450764 1 Tablet(s) PO QD 12/21/2011 Inactive TAKE ONE TABLET BY MOUTH EVERY DAY Endocet 10 mg-325 mg Tab RxNorm: 9532437 1-2 Tablet(s) PO Q4H 11/2512/24/2011 Inactive PRN PAIN MS Contin 200 mg Tab RxNorm: 245046 1 Tablet(s) PO BID 11/25/201112/2011 Inactive lactulose 10 gram/15 mL Oral Soln RxNorm: 871980 Milliliter(s) PO 1 No Stop Date Active TAKE 1 TABLESPOON BY MOUTH O NCE DAILY lactulose 10 gram/15 mL Oral Soln RxNorm: 931854 Milliliter(s) PO 1 12/12/2010 11/20/2011 Inactive TAKE 1 TABLESPOON BY MOUTH O NCE DAILY Premarin 0.9 mg Tab RxNorm: 386558 1 Tablet(s) PO QD 10/12/201105/08 Inactive TAKE ONE TABLET BY MOUTH EVERY DAY fluoxetine 20 mg capsule RxNorm: 375834 1 Capsule(s) PO QD 10/12/2009/05/2012 Inactive TAKE ONE CAPSULE BY MOUTH EV JANKI DAY Synthroid 112 mcg Tab RxNorm: 076654 1 Tablet(s) PO QD 10/12/2011 Inactive TAKE ONE TABLET BY MOUTH EVERY DAY metformin ER 500 mg 24 hr Tab RxNorm: 495894 1 Tablet(s) PO QD 09/2311/10/2011 Inactive TAKE ONE TABLET BY MOUTH GLYNN RY DAY Synthroid 112 mcg Tab RxNorm: 461893 1 Tablet(s) PO QD 10/12/2011 Inactive TAKE ONE TABLET BY MOUTH EVERY DAY metformin ER 500 mg 24 hr Tab RxNorm: 990053 1 Tablet(s) PO QD 09/2310/11/2011 Inactive TAKE ONE TABLET BY MOUTH GLYNN RY DAY Prevacid 30 mg Cap RxNorm: 005085 Capsule(s) PO 10/12/2011 01/25/2012 Inactive TAKE ONE CAPSULE BY MOUTH EVERY DAY Symbicort 160 mcg-4.5 mcg/actuation HFA Aerosol Inhaler RxNo rm: 4416655 2 Puff(s) INH BID 10/12/2011 05/08/2012 Inactive INHALE 2 PUFFS O RALLY TWO TIMES A DAY gabapentin 800 mg Tab RxNorm: 464645 1 Tablet(s) PO QD 10/12/2011 Inactive TAKE ONE TABLET BY MOUTH EVERY DAY MS Contin 200 mg Tab RxNorm: 044729 1 Tablet(s) PO BID 09/23/201111/2010 Inactive Endocet 10 mg-325 mg Tab RxNorm: 5547022 1-2 Tablet(s) PO Q4H 09/2310/22/2011 Inactive PRN PAIN Endocet 10 mg-325 mg Tab RxNorm: 9507458 1-2 Tablet(s) PO Q4H 08/2109/19/2011 Inactive PRN PAIN MS Contin 200 mg Tab RxNorm: 727960 1 Tablet(s) PO BID 08/21/2011 Inactive Diflucan 100 mg Tab RxNorm: 217521 1 Tablet(s) PO QD 08/10/201108/16 Inactive cefdinir 300 mg Cap RxNorm: 210502 2 Capsule(s) PO QD 08/10/201107/24 Inactive Reglan 10 mg Tab RxNorm: 972632 1 Tablet(s) PO AC & HS 07/15/2011 Inactive Endocet 10 mg-325 mg Tab RxNorm: 0470338 1-2 Tablet(s) PO Q4H 07/1508/13/2011 Inactive PRN PAIN One Touch Ultra Test strips RxNorm: Miscellaneous BID 06/11/2011 1 01/16/2014 Inactive TEST TWO TIMES A DAY lactulose 10 gram/15 mL Oral Soln RxNorm: 381347 Milliliter(s) PO 0 06/10/2011 10/11/2011 Inactive TAKE 1 TABLESPOON BY MOUTH O NCE DAILY Chantix Continuing Month Aníbal 1 mg Tab RxNorm: 455386 Tablet(s) PO 0 06/10/2011 11/02/2011 Inactive TAKE DIRECTED - PER PACK[employer] GE INSTRUCTIONS fluoxetine 40 mg Cap RxNorm: 790795 Capsule(s) PO 06/10/2011 02/02/20 Inactive TAKE ONE CAPSULE BY MOUTH EVERY MORNING Chantix Continuing Month Aníbal 1 mg Tab RxNorm: 357721 Ta blet(s) PO TAKE DIRECTED - PER PACKAGE INSTRUCTIONS 05/13/2011 06/09/2011 Inactive Soma 350 mg Tab RxNorm: 250949 Tablet(s) PO TAKE ON E TABLET BY MOUTH THREE TIMES A DAY 05/13/2011 04/18/2012 Inactive Chantix Continuing Month Aníbal 1 mg Tab RxNorm: 904608 Ta blet(s) PO as directed per package instructions. 04/22/2011 05/12/2011 Inactive Symbicort 160 mcg-4.5 mcg/Actuation HFA Aerosol Inhaler RxNo rm: 5943759 HFA Aerosol Inhaler INH INHALE 2 PUFFS ORALLY TWO TIMES A DAY 04/13/2011 Inactive Synthroid 112 mcg Tab RxNorm: 390471 Tablet(s) PO TAKE ONE TABLET BY MOUTH EVERY DAY 04/13/2011 10/12/2011 Inactive Premarin 0.9 mg Tab RxNorm: 125067 Tablet(s) PO TAKE ON E TABLET BY MOUTH EVERY DAY 04/13/2011 10/12/2011 Inactive gabapentin 800 mg Tab RxNorm: 092053 Tablet(s) PO TAKE ONE TABLET BY MOUTH EVERY DAY 04/13/2011 10/12/2011 Inactive Prevacid 30 mg Cap RxNorm: 678408 1 Capsule(s) PO QD 04/13/201110/11 Inactive Spiriva with HandiHaler 18 mcg & inhalation Caps RxNorm: 580 261 Capsule(s) INH INHALE CONTENTS OF 1 CAPSULE(S) WITH HANDIHALER ONCE DAILY 04/13/2011 12/21/2011 Inactive metformin ER 500 mg 24 hr Tab RxNorm: 987658 Tablet(s) PO TAKE ONE TABLET BY MOUTH EVERY DAY 04/13/2011 10/12/2011 Inactive Soma 350 mg Tab RxNorm: 474061 1 Tablet(s) PO QID 03/30/2011 02/13/20 19 Inactive fluoxetine 20 mg Cap RxNorm: 951541 Capsule(s) PO TAKE ONE CAPSULE BY MOUTH EVERY DAY 03/25/2011 10/12/2011 Inactive cefdinir 300 mg Cap RxNorm: 402923 2 Capsule(s) PO QD 03/19/201105/2011 Inactive 16.2 mg-0.1037 mg-0.0194 mg Tab RxNorm: 0572197 2 Tablet(s) PO TID PRN for gas and cramping 03/16/2011 07/13/2011 Inactive Soma 350 mg Tab RxNorm: 379523 2 Tablet(s) PO TID 03/16/2011 03/29/20 11 Inactive Chantix Starting Month Aníbal 0.5 mg (11)-1 mg (3x14) Tab s in a Dose Pack RxNorm: 658374 Tablet(s) PO as directed 03/02/2011 No Stop Date Active diazepam 10 mg Tab RxNorm: 499568 1 Tablet(s) PO BID 02/10/201101/19 Inactive Zofran 4 mg tablet RxNorm: 497978 1 Tablet(s) PO Q4H prn nausea 02/16/2011 Inactive Diflucan 100 mg Tab RxNorm: 379822 1 Tablet(s) PO QD 01/18/201101/24 Inactive Premarin 0.625 mg/g Vaginal Cream RxNorm: 598932 VAG In sert 1gm vaginally at bedtime 3 times weekly 01/18/2011 02/12/2019 Inactive loratadine 10 mg Tab RxNorm: 470784 1 Tablet(s) PO QD 12/17/201003/2012 Inactive Spiriva with HandiHaler 18 mcg & inhalation Caps RxNorm: 580 261 1 Capsule(s) INH QD 12/17/2010 04/12/2011 Inactive Diflucan 100 mg Tab RxNorm: 825223 1 Tablet(s) PO QD 12/17/201012/23 Inactive diazepam 10 mg Tab RxNorm: 018663 1 Tablet(s) PO BID and PRN 201002/12/2019 Inactive One Touch Ultra Test Strips RxNorm: InVt BID Zainab t blood sugar at least twice daily. 11/11/2010 06/11/2011 Inactive fluoxetine 40 mg Cap RxNorm: 189662 1 Capsule(s) PO QAM 11/11/2010 Inactive diazepam 10 mg Tab RxNorm: 643290 1 Tablet(s) PO BID and PRN 200911/12/2010 Inactive Bactrim DS 800 mg-160 mg Tab RxNorm: 179672 1 Tablet(s) PO BID 09/2210/15/2010 Inactive fluoxetine 20 mg Cap RxNorm: 625464 1 Capsule(s) PO QD 10/02/201008/2011 Inactive Bactrim DS 800 mg-160 mg Tab RxNorm: 473678 1 Tablet(s) PO BID 01/201010/03/2010 Inactive Zofran 4 mg Tab RxNorm: 998527 1 Tablet(s) PO Q4H prn nausea 200910/16/2010 Inactive 16.2 mg-0.1037 mg-0.0194 mg Tab RxNorm: 8941886 2 Tablet(s) PO TID PRN for gas and cramping 09/17/2010 10/21/2010 Inactive Gabapentin 800 mg Tab RxNorm: 420652 1 Tablet(s) PO QD 09/16/2010 Inactive ProAir HFA 90 mcg/Actuation Aerosol Inhaler RxNorm: 7646547 2 Puff(s) INH Q4H prn shortness of breath 09/15/2010 12/13/2010 Inactive gabapentin 800 mg Tab RxNorm: 352571 1 Tablet(s) PO QD 09/15/2010 Inactive Prevacid 30 mg Cap RxNorm: 903700 1 Capsule(s) PO QD 09/15/201004/12 Inactive loratadine 10 mg Tab RxNorm: 148424 1 Tablet(s) PO QD 09/15/201011/23 Inactive Premarin 0.9 mg Tab RxNorm: 744138 1 Tablet(s) PO QD 09/15/201004/12 Inactive Synthroid 112 mcg Tab RxNorm: 523506 1 Tablet(s) PO QD 09/15/2010 Inactive metformin ER 500 mg 24 hr Tab RxNorm: 957012 1 Tablet(s) PO QD 08/2304/12/2011 Inactive Symbicort 160 mcg-4.5 mcg/Actuation Inhalation HFA Aer osol Inhaler RxNorm: 5130529 2 Puff(s) INH BID 09/15/2010 04/12/2011 Inactive diazepam 10 mg Tab RxNorm: 663485 1 Tablet(s) PO BID and PRN 200910/13/2010 Inactive Phentermine 37.5 mg Cap RxNorm: 907856 1 Capsule(s) PO QD 09/02/2010 11/02/2011 Inactive ProAir HFA 90 mcg/Actuation Aerosol Inhaler RxNorm: 5849880 2 Puff(s) INH Q4H prn shortness of breath 08/07/2010 No Stop Date Active Premarin 0.9 mg Tab RxNorm: 759635 1 Tablet(s) PO QD 08/07/201009/14 Inactive Loratadine 10 mg Tab RxNorm: 368414 1 Tablet(s) PO QD 08/07/201008/23 Inactive Lactulose 10 gram/15 mL Oral Soln RxNorm: 893110 1 Unit Dose PO QD 08/07/2010 02/12/2019 Inactive Zofran 4 mg Tab RxNorm: 272348 1 Tablet(s) PO Q4H prn nausea 2009 No Stop Date Active Gabapentin 800 mg Tab RxNorm: 015619 1 Tablet(s) PO QD 08/07/2010 Inactive Synthroid 112 mcg Tab RxNorm: 589412 1 Tablet(s) PO QD 08/07/2010 Inactive Metformin ER 500 mg 24 hr Tab RxNorm: 986678 1 Tablet(s) PO QD 07/2309/14/2010 Inactive Vitamin D 1,000 unit Tab RxNorm: 092936 1 Tablet(s) PO TID 08/07/2002/12/2019 Inactive Symbicort 160 mcg-4.5 mcg/Actuation Inhalation HFA Aer osol Inhaler RxNorm: 2509288 2 Puff(s) INH BID 08/07/2010 09/14/2010 Inactive Prevacid 30 mg Cap RxNorm: 897943 1 Capsule(s) PO QD 08/07/201009/14 Inactive Metformin ER 500 mg 24 hr Tab RxNorm: 827889 1 Tablet(s) PO QD 06/2308/06/2010 Inactive Vitamin D 1,000 unit Tab RxNorm: 812809 1 Tablet(s) PO TID 07/14/2008/06/2010 Inactive Synthroid 112 mcg Tab RxNorm: 876641 1 Tablet(s) PO QD 07/14/2010 Inactive Lactulose 10 gram/15 mL Oral Soln RxNorm: 894859 1 Unit Dose PO QD 07/14/2010 08/06/2010 Inactive Levaquin 500 mg Tab RxNorm: 269192 1 Tablet(s) PO QD 07/14/201007/27 Inactive Premarin 0.9 mg Tab RxNorm: 473154 1 Tablet(s) PO QD 07/14/201008/06 Inactive ProAir HFA 90 mcg/Actuation Aerosol Inhaler RxNorm: 7243180 2 Puff(s) INH Q4H prn shortness of breath 07/14/2010 No Stop Date Active Prevacid 30 mg Cap RxNorm: 993262 1 Capsule(s) PO QD 07/14/201008/06 Inactive Zofran 4 mg Tab RxNorm: 542640 1 Tablet(s) PO Q4H prn nausea 2009 No Stop Date Active Symbicort 160 mcg-4.5 mcg/Actuation Inhalation HFA Aer osol Inhaler RxNorm: 6772393 2 Puff(s) INH BID 07/14/2010 08/06/2010 Inactive Loratadine 10 mg Tab RxNorm: 504142 1 Tablet(s) PO QD 07/14/201007/23 Inactive Gabapentin 800 mg Tab RxNorm: 204036 1 Tablet(s) PO QD 07/14/2010 Inactive Metformin ER 500 mg 24 hr Tab RxNorm: 026489 1 Tablet(s) PO 010 07/13/2010 Inactive Diazepam 10 mg Tab RxNorm: 370206 1 Tablet(s) PO BID and PRN 200909/06/2010 Inactive Premarin 0.9 mg Tab RxNorm: 081546 1 Tablet(s) PO QD 06/09/201007/13 Inactive Zofran 4 mg Tab RxNorm: 097494 1 Tablet(s) PO Q4H prn nausea 2009 No Stop Date Active ProAir HFA 90 mcg/Actuation Aerosol Inhaler RxNorm: 4100012 2 Puff(s) INH Q4H prn shortness of breath 06/09/2010 No Stop Date Active Gabapentin 800 mg Tab RxNorm: 687750 1 Tablet(s) PO QD 06/09/2010 Inactive Loratadine 10 mg Tab RxNorm: 950010 1 Tablet(s) PO QD 06/09/201006/23 Inactive Lactulose 10 gram/15 mL Oral Soln RxNorm: 270669 1 Unit Dose PO QD 06/09/2010 07/13/2010 Inactive Prevacid 30 mg Cap RxNorm: 718710 1 Capsule(s) PO QD 06/09/201007/13 Inactive Synthroid 112 mcg Tab RxNorm: 720215 1 Tablet(s) PO QD 06/09/2010 Inactive Symbicort 160 mcg-4.5 mcg/Actuation Inhalation HFA Aer osol Inhaler RxNorm: 2276697 2 Puff(s) INH BID 06/09/2010 07/13/2010 Inactive Omnicef 300 mg Cap RxNorm: 351807 2 Capsule(s) PO QD 05/07/201005/20 Inactive Metformin 500 mg Tab RxNorm: 964857 1 Tablet(s) PO QD 05/06/201005/22 Inactive ProAir HFA 90 mcg/Actuation Aerosol Inhaler RxNorm: 5094097 2 Puff(s) INH Q4H prn shortness of breath 05/06/2010 No Stop Date Active lactulose 10 gram/15 mL Oral Soln RxNorm: 859601 1 Unit Dose PO QD 05/06/2010 06/10/2011 Inactive Loratadine 10 mg Tab RxNorm: 133427 1 Tablet(s) PO QD 05/06/201005/22 Inactive Synthroid 112 mcg Tab RxNorm: 168928 1 Tablet(s) PO QD 05/06/2010 Inactive Symbicort 160 mcg-4.5 mcg/Actuation Inhalation HFA Aer osol Inhaler RxNorm: 2833878 2 Puff(s) INH BID 05/06/2010 06/08/2010 Inactive Gabapentin 800 mg Tab RxNorm: 773520 1 Tablet(s) PO QD 05/06/2010 Inactive 16.2 mg-0.1037 mg-0.0194 mg Tab RxNorm: 2955966 2 Tablet(s) PO TID PRN for gas and cramping 05/06/2010 05/12/2010 Inactive Zofran 4 mg Tab RxNorm: 750621 1 Tablet(s) PO Q4H prn nausea 200904/13/2010 Inactive MS Contin 60 mg Tab RxNorm: 455037 3 Tablet(s) PO BID 04/09/201004/22 Inactive Soma 350 mg Tab RxNorm: 676599 2 Tablet(s) PO TID 04/09/2010 05/08/20 10 Inactive Symbicort 160 mcg-4.5 mcg/Actuation Inhalation HFA Aer osol Inhaler RxNorm: 2431096 2 Puff(s) INH BID 04/08/2010 05/05/2010 Inactive Doxycycline 100 mg Cap RxNorm: 8801007 1 Capsule(s) PO BID 04/08/20 10 04/17/2010 Inactive Triamterene-Hydrochlorothiazide 37.5 mg-25 mg Cap RxNorm: 19 8316 1 Capsule(s) PO QAM 04/08/2010 09/04/2010 Inactive fluoxetine 40 mg Cap RxNorm: 680137 1 Capsule(s) PO QAM 04/08/2010 Inactive Morphine SR 120 mg multiphase 24 hr Cap RxNorm: 397389 1 Capsul e(s) PO 03/11/2010 04/07/2010 Inactive Endocet 10 mg-325 mg Tab RxNorm: 7419554 1-2 Tablet(s) PO Q4H OK N PAIN 03/11/2010 04/09/2010 Inactive Savella 100 mg Tab RxNorm: 592527 1 Tablet(s) PO BID 03/10/201004/09 Inactive Soma 350 mg Tab RxNorm: 697268 1 Tablet(s) PO TID prn spasm 010 04/09/2010 Inactive Savella 100 mg Tab RxNorm: 943929 1 Tablet(s) PO BID 02/03/201004/09 Inactive Aspirin 81 mg Tab RxNorm: 487625 1 Tablet(s) PO QD No Start Date Active Zyrtec 10 mg Tab RxNorm: 5013153 1 Tablet(s) PO QD No Start Date Active One Touch Ultra Test Strips RxNorm: Misc test at least t wice daily. No Start Date Active coenzyme Q10 200 mg capsule RxNorm: 621922 1 Capsule(s) PO QD No Star t Date Active One Touch Ultra Test Strips RxNorm: InVt BID Zainab t blood sugar at least twice daily. No Start Date 11/10/2010 Inactive Gabapentin 800 mg Tab RxNorm: 117189 1 Tablet(s) PO QD No Start Date 05/05/2010 Inactive Abilify 5 mg tablet RxNorm: 205578 1 Tablet(s) PO QD No Start Date Inactive Chantix 1 mg Tab RxNorm: 426994 1 Tablet(s) PO BID No Start Date 10/22 Inactive Ozempic 0.25 mg or 0.5 mg (2 mg/1.5 mL) subcutaneous p en injector RxNorm: 4237100 .25 Milligram(s) SQ QW No Start Date 07/04/2019 Inactive lancets 28 gauge RxNorm: Miscellaneous As needed for blo od glucose sticks No Start Date 08/23/2013 Inactive potassium chloride ER 20 mEq tablet,extended release RxNorm: 999224 2 Tablet(s) PO QD No Start Date 09/26/2018 Inactive Ventolin HFA 90 mcg/actuation Aerosol Inhaler RxNorm: 249795 1 2 Puff(s) INH Q4H prn No Start Date 01/17/2012 Inactive potassium chloride ER 20 mEq tablet,extended release RxNorm: 951592 2 Tablet(s) PO QD No Start Date 10/19/2018 Inactive Januvia 100 mg tablet RxNorm: 673180 1 Tablet(s) PO QD No Start Date 09/10/2015 Inactive Medrol (Aníbal) 4 mg Tabs in a Dose Pack RxNorm: 182636 Tablet(s) PO N o Start Date 08/09/2011 Inactive as directed Zithromax Z-Aníbal 250 mg Tab RxNorm: 194002 Tablet(s) PO No Start Date 01/25/2012 Inactive as directed vitamin B6-vitamin E-magnesium tablet RxNorm: 1 Tablet(s ) PO QHS with INH No Start Date 03/30/2018 Inactive prednisone 20 mg Tab RxNorm: 390424 1 Tablet(s) PO TID for 1wk then 1 po BID for 1wk No Start Date 01/25/2012 Inactive furosemide 40 mg tablet RxNorm: 136395 1 Tablet(s) PO QAM No Start Date 10/09/2018 Inactive Vitamin D3 1000 units Capsule RxNorm: 1 Capsule(s) PO TID No S tart Date 03/19/2015 Inactive Zofran 4 mg Tab RxNorm: 078634 1 Tablet(s) PO Q4H prn nausea No Sta rt Date 04/13/2010 Inactive Premarin 0.625 mg/g Vaginal Cream RxNorm: 398194 1 Gram (s) VAG QHS 3 times a week No Start Date 09/22/2017 Inactive oxycodone 10 mg tablet RxNorm: 3929168 1-2 Tablet(s) PO QID as n eeded for pain No Start Date 11/04/2015 Inactive Nicoderm CQ 21 mg/24 hr daily Patch RxNorm: 658969 1 Applicatio n TD QD No Start Date 08/05/2015 Inactive Topamax 50 mg tablet RxNorm: 236575 1/2 Tablet(s) PO QH S for 1wk then 1 po q HS for 1wk then 2 po q HS No Start Date 06/27/2012 Inactive Chantix Starting Month Aníbal 0.5 mg (11)-1 mg (3x14) Tab s in a Dose Pack RxNorm: 570068 Tablet(s) PO as directed No Start Date 03/01/2011 Inactive Trulicity 0.75 mg/0.5 mL subcutaneous pen injector RxNorm: 1 402367 Milliliter(s) SQ No Start Date 07/04/2019 Inactive Medrol (Aníbal) 4 mg Tabs in a Dose Pack RxNorm: 058104 Tablet(s) PO N o Start Date 01/25/2012 Inactive as directed Duragesic 100 mcg/hr Transderm Patch RxNorm: 685821 2 A pplication TD Q48H for pain No Start Date 09/05/2013 Inactive Premarin 0.9 mg Tab RxNorm: 241797 1 Tablet(s) PO QD No Start Date Inactive Zithromax Z-Aníbal 250 mg Tab RxNorm: 239438 Tablet(s) PO as direc chinmay No Start Date 01/25/2012 Inactive ondansetron 8 mg disintegrating tablet RxNorm: 590461 1 Tablet(s) PO Q6H as needed No Start Date 10/10/2018 Inactive oxycodone 15 mg tablet RxNorm: 3957331 1 Tablet(s) PO QID as nee ded for pain No Start Date 03/05/2019 Inactive ProAir HFA 90 mcg/Actuation Aerosol Inhaler RxNorm: 724111 2 Puff(s) INH Q4H prn for wheezing or shortness of breath No Start Date 12/21/2011 Inactive pravastatin 40 mg tablet RxNorm: 898099 1/2 Tablet(s) PO QOD No Sta rt Date 04/09/2015 Inactive ipratropium-albuterol 0.5 mg-3 mg(2.5 mg base)/3 mL ne bulization soln RxNorm: 0996873 1 Unit Dose INH Q4H as needed No Start Date 09/09/2016 Inactive furosemide 40 mg tablet RxNorm: 924146 1 Tablet(s) PO QAM as ne eded No Start Date 09/24/2019 Inactive Vitamin D2 oral RxNorm: 4018 oral No Start Date 03/18/2015 Inacti ve pravastatin 40 mg tablet RxNorm: 074667 1/2 Tablet(s) PO QD No Star t Date 04/09/2015 Inactive ondansetron HCl 4 mg tablet RxNorm: 199513 1 Tablet(s) PO Q4H as needed for nausea and vomiting No Start Date 04/07/2016 Inactive furosemide 40 mg tablet RxNorm: 396440 2 Tablet(s) PO QAM No Start Date 09/26/2018 Inactive gabapentin 800 mg tablet RxNorm: 305560 1/2 Tablet(s) PO BID No Sta rt Date 06/21/2017 Inactive gabapentin 800 mg tablet RxNorm: 153264 1/2 Tablet(s) PO BID No Sta rt Date 07/05/2017 Inactive ProAir HFA 90 mcg/Actuation Aerosol Inhaler RxNorm: 0762996 2 Puff(s) INH Q4H prn shortness of breath No Start Date 05/05/2010 Inactive scopolamine 1 mg over 3 days transdermal patch RxNorm: 09286 2 1 Application TD behind ear. Take off after three days No Start Date 10/10/2018 Inactive Metformin 500 mg Tab RxNorm: 940221 1 Tablet(s) PO QD No Start Date 0 05/05/2010 Inactive MS Contin 200 mg Tab RxNorm: 007190 1 Tablet(s) PO BID No Start Date 08/20/2011 Inactive Belladonna-Phenobarbital 48 mg tablet,extended release RxNor m: 2 Tablet(s) PO TID No Start Date 06/04/2016 Inactive Synthroid 112 mcg Tab RxNorm: 591955 1 Tablet(s) PO QD No Start Date 05/05/2010 Inactive Zegerid 40 mg-1.1 gram Cap RxNorm: 617385 1 Capsule(s) PO QD No Sta rt Date 01/25/2012 Inactive Premarin 0.625 mg/g Vaginal Cream RxNorm: 626184 VAG In sert 1gm vaginally at bedtime 3 times weekly No Start Date 01/17/2011 Inactive potassium chloride ER 20 mEq tablet,extended release RxNorm: 033628 1 Tablet(s) PO QD No Start Date 04/24/2019 Inactive methocarbamol 750 mg tablet RxNorm: 550257 2 Tablet(s) PO TID as needed for muscle spasm No Start Date 07/08/2014 Inactive Biaxin XL Aníbal 500 mg 24 hr Tab RxNorm: 374676 Tablet(s) PO as d irected No Start Date 04/24/2013 Inactive Vitamin D3 1,000 unit tablet RxNorm: 810057 3 Tablet(s) PO QD No St art Date 06/01/2017 Inactive Morphine SR 120 mg multiphase 24 hr Cap RxNorm: 645814 1 Capsul e(s) PO BID No Start Date 04/09/2010 Inactive Silvadene 1 % topical cream RxNorm: 990744 1 Application TOP BI D to burn area No Start Date 01/31/2017 Inactive Prednisone 20 mg Tab RxNorm: 610747 1 Tablet(s) PO TID for 3days then BID for 4days No Start Date 01/25/2012 Inactive gabapentin 600 mg tablet RxNorm: 922989 1 Tablet(s) PO BID No Start Date 01/21/2015 Inactive topiramate 50 mg tablet RxNorm: 556622 1 Tablet(s) PO QHS No Start Date 03/30/2018 Inactive Januvia 100 mg tablet RxNorm: 952338 1/2 Tablet(s) PO QD No Start D ate 12/25/2015 Inactive Diazepam 10 mg Tab RxNorm: 622783 1 Tablet(s) PO BID and PRN No Sta rt Date 06/08/2010 Inactive Medication Administered No Medication Administered data Immunizations Vaccine Codes Date Status Influenza CVX: 141 09/28/2012 Pneumovax Unknown 09/28/2012 Influenza (Adult) CVX: 141 09/02/2010 Results No Results data Procedures Procedure Codes Date THER/PROPH/DIAG INJ SC/IM CPT-4: 93029 07/10/2019 METHYLPREDNISOLONE INJECTION CPT-4: J2930 07/10/2019 URINALYSIS NONAUTO W/O SCOPE CPT-4: 50952 09/06/2018 URINE CULTURE/ COLONY COUNT CPT-4: 19202 09/06/2018 DRAIN/INJECT JOINT/BURSA CPT-4: 38420 04/29/2017 TRIAMCINOLONE ACET INJ NOS CPT-4: J3301 04/29/2017 DEXAMETHASONE SODIUM PHOS CPT-4: J1100 04/29/2017 INFLUENZA ASSAY W/OPTIC CPT-4: 83143 12/01/2016 RESPIRATORY CULTURE & STAIN CPT-4: 69848 07/09/2016 TB INTRADERMAL TEST CPT-4: 57125 04/21/2016 DRAIN/INJECT JOINT/BURSA CPT-4: 90739 11/07/2013 METHYLPREDNISOLONE 40 MG INJ CPT-4: J1030 11/07/2013 TRIAMCINOLONE ACET INJ NOS CPT-4: J3301 11/07/2013 DRAIN/INJECT JOINT/BURSA CPT-4: 67232 08/08/2013 METHYLPREDNISOLONE 40 MG INJ CPT-4: J1030 08/08/2013 TRIAMCINOLONE ACET INJ NOS CPT-4: J3301 08/08/2013 FLU VACCINE 3 YRS & > IM UP 64 CPT-4: 32999 2 PNEUMOCOCCAL VACC 23 ADITYA IM CPT-4: 47842 09/28/2012 IMMUNIZATION ADMIN CPT-4: 60115 09/28/2012 IMMUNIZATION ADMIN EACH ADD CPT-4: 16126 09/28/2012 FLU VACCINE 3 YRS & > IM UP 64 CPT-4: 81728 0 IMMUNIZATION ADMIN CPT-4: 20154 09/02/2010 METHYLPREDNISOLONE INJECTION CPT-4: J2930 05/07/2010 THER/PROPH/DIAG INJ SC/IM CPT-4: 61223 05/07/2010 Vital Signs Date Vital 10/30/2019 Blood [...] 1: 122/78 Code: 8480-6 BMI: 29.5 Code: 34472-8 Heart Rate 1: 76 bpm Height: 5'4" Respiratory Rate: 20 bpm SpO2: 96% Tempera ture: 37.0 (C) / 98.6 (F) Weight: 172 lbs 01/25/2019 Blood Pressure 1: 132/80 Code: 8480-6 BMI: 29.7 Code: 92736-1 Heart Rate 1: 84 bpm Height: 5'4" Respiratory Rate: 22 bpm SpO2: 98% Tempera ture: 36.9 (C) / 98.4 (F) Weight: 173 lbs 01/03/2019 Blood Pressure 1: 116/70 Code: 8480-6 BMI: 29.5 Code: 24686-3 Heart Rate 1: 92 bpm Height: 5'4" Respiratory Rate: 24 bpm SpO2: 98% Tempera ture: 37.2 (C) / 98.9 (F) Weight: 172 lbs 11/21/2018 Blood Pressure 1: 146/82 Code: 8480-6 BMI: 28.2 Code: 37232-4 Heart Rate 1: 88 bpm Height: 5'4" Respiratory Rate: 22 bpm SpO2: 97% Tempera ture: 36.9 (C) / 98.4 (F) Weight: 164 lbs 10/27/2018 Blood Pressure 1: 122/70 Code: 8480-6 BMI: 27.6 Code: 01630-1 Heart Rate 1: 88 bpm Height: 5'4" Respiratory Rate: 20 bpm SpO2: 96% Tempera ture: 36.8 (C) / 98.3 (F) Weight: 161 lbs 10/18/2018 Blood Pressure 1: 126/70 Code: 8480-6 BMI: 28.3 Code: 42747-9 Heart Rate 1: 76 bpm Height: 5'4" Respiratory Rate: 20 bpm SpO2: 95% Tempera ture: 37.0 (C) / 98.6 (F) Weight: 165 lbs 09/27/2018 Blood Pressure 1: 124/78 Code: 8480-6 BMI: 27.1 Code: 50769-6 Heart Rate 1: 88 bpm Height: 5'4" Respiratory Rate: 20 bpm SpO2: 98% Tempera ture: 36.4 (C) / 97.6 (F) Weight: 158 lbs 09/14/2018 Blood Pressure 1: 140/72 Code: 8480-6 BMI: 26.1 Code: 39547-9 Heart Rate 1: 100 bpm Height: 5'4" Respiratory Rate: 20 bpm SpO2: 97% Tempera ture: 36.9 (C) / 98.4 (F) Weight: 152 lbs 09/06/2018 Blood Pressure 1: 156/82 Code: 8480-6 BMI: 26.3 Code: 72492-9 Heart Rate 1: 100 bpm Height: 5'4" Respiratory Rate: 28 bpm SpO2: 95% Tempera ture: 37.2 (C) / 98.9 (F) Weight: 153 lbs 08/16/2018 Blood Pressure 1: 130/78 Code: 8480-6 Heart Rate 1: 87 bpm Respiratory Rate: 24 bpm SpO2: 94% Temperature: 36.9 (C) / 98.4 (F) We ight: 147 lbs 8 oz 07/07/2018 Blood Pressure 1: 116/78 Code: 8480-6 BMI: 22.7 Code: 34944-5 Heart Rate 1: 88 bpm Height: 5'4" Respiratory Rate: 22 bpm SpO2: 98% Tempera ture: 36.5 (C) / 97.7 (F) Weight: 132 lbs 05/31/2018 Blood Pressure 1: 128/78 Code: 8480-6 BMI: 22.3 Code: 31063-7 Heart Rate 1: 92 bpm Height: 5'4" Respiratory Rate: 26 bpm SpO2: 94% Tempera ture: 36.7 (C) / 98.1 (F) Weight: 130 lbs 03/31/2018 Blood Pressure 1: 136/78 Code: 8480-6 BMI: 21.5 Code: 71325-1 Heart Rate 1: 76 bpm Height: 5'4" Respiratory Rate: 24 bpm SpO2: 95% Tempera ture: 36.8 (C) / 98.3 (F) Weight: 125 lbs 01/26/2018 Blood Pressure 1: 142/64 Code: 8480-6 BMI: 20.6 Code: 19670-1 Heart Rate 1: 90 bpm Height: 5'4" Respiratory Rate: 24 bpm SpO2: 92% Tempera ture: 36.3 (C) / 97.3 (F) Weight: 120 lbs 10/26/2017 Blood Pressure 1: 124/70 Code: 8480-6 BMI: 20.3 Code: 56906-0 Heart Rate 1: 76 bpm Height: 5'4" Respiratory Rate: 22 bpm SpO2: 94% Tempera ture: 36.7 (C) / 98.1 (F) Weight: 118 lbs 09/23/2017 Blood Pressure 1: 106/70 Code: 8480-6 BMI: 19.2 Code: 97253-3 Heart Rate 1: 76 bpm Height: 5'4" Respiratory Rate: 20 bpm SpO2: 94% Tempera ture: 36.8 (C) / 98.3 (F) Weight: 112 lbs 08/12/2017 Blood Pressure 1: 116/68 Code: 8480-6 BMI: 20.1 Code: 35751-3 Heart Rate 1: 80 bpm Height: 5'4" Respiratory Rate: 22 bpm SpO2: 95% Tempera ture: 36.8 (C) / 98.2 (F) Weight: 117 lbs 07/06/2017 Blood Pressure 1: 136/78 Code: 8480-6 BMI: 20.6 Code: 33106-7 Heart Rate 1: 76 bpm Height: 5'4" Respiratory Rate: 24 bpm SpO2: 96% Tempera ture: 36.8 (C) / 98.2 (F) Weight: 120 lbs 06/02/2017 Blood Pressure 1: 112/70 Code: 8480-6 Heart Rate 1: 92 bpm Height: 5'4" Respiratory Rate: 24 bpm SpO2: 95% Temperature: 37.0 (C) / 98.6 (F) Weight: 04/29/2017 Blood Pressure 1: 94/52 Code: 8480-6 BMI: 19.6 C ode: 01507-1 Heart Rate 1: 84 bpm Height: 5'4" [...] 92/58 Code: 8480-6 BMI: 19.2 C ode: 29208-2 Heart Rate 1: 84 bpm Height: 5'4" Respiratory Rate: 26 bpm SpO2: 95% Tempera ture: 36.7 (C) / 98.0 (F) Weight: 112 lbs 12/01/2016 Blood Pressure 1: 114/70 Code: 8480-6 BMI: 19.2 Code: 00621-9 Heart Rate 1: 96 bpm Height: 5'4" Respiratory Rate: 28 bpm SpO2: 93% Tempera ture: 38.3 (C) / 101.0 (F) Weight: 112 lbs 10/27/2016 Blood Pressure 1: 126/66 Code: 8480-6 BMI: 19.6 Code: 92109-2 Heart Rate 1: 92 bpm Height: 5'4" Respiratory Rate: 28 bpm SpO2: 90% Tempera ture: 36.8 (C) / 98.3 (F) Weight: 114 lbs 09/09/2016 Blood Pressure 1: 126/74 Code: 8480-6 Heart Rate 1: 104 bpm Height: 5'4" Respiratory Rate: 32 bpm SpO2: 88% Temperature: 37 .2 (C) / 99.0 (F) 08/26/2016 Blood Pressure 1: 134/82 Code: 8480-6 BMI: 22.0 Code: 23564-8 Heart Rate 1: 84 bpm Height: 5'4" Respiratory Rate: 24 bpm SpO2: 94% Tempera ture: 36.8 (C) / 98.3 (F) Weight: 128 lbs 05/21/2016 Blood Pressure 1: 142/80 Code: 8480-6 BMI: 21.6 Code: 20208-0 Heart Rate 1: 104 bpm Height: 5'4" Respiratory Rate: 22 bpm SpO2: 93% Tempera ture: 36.0 (C) / 96.8 (F) Weight: 126 lbs 03/25/2016 Blood Pressure 1: 126/62 Code: 8480-6 Heart Rate 1: 88 bpm Respiratory Rate: 20 bpm SpO2: 92% Temperature: 36.8 (C) / 98.3 (F) We ight: 130 lbs 01/23/2016 Blood Pressure 1: 146/82 Code: 8480-6 BMI: 24.1 Code: 92875-5 Heart Rate 1: 92 bpm Height: 5'3" Respiratory Rate: 22 bpm Temperature: 37 .1 (C) / 98.8 (F) Weight: 136 lbs 12/26/2015 Blood Pressure 1: 142/78 Code: 8480-6 BMI: 24.6 Code: 87259-4 Heart Rate 1: 78 bpm Height: 5'3" Respiratory Rate: 20 bpm Temperature: 36 .7 (C) / 98.1 (F) Weight: 139 lbs 12/03/2015 Blood Pressure 1: 126/60 Code: 8480-6 BMI: 24.6 Code: 06024-1 Heart Rate 1: 100 bpm Height: 5'3" Respiratory Rate: 28 bpm Temperature: 37 .6 (C) / 99.6 (F) Weight: 139 lbs 09/10/2015 Blood Pressure 1: 124/64 Code: 8480-6 BMI: 23.7 Code: 05087-5 Heart Rate 1: 88 bpm Height: 5'3" Respiratory Rate: 24 bpm SpO2: 95% Tempera ture: 36.4 (C) / 97.6 (F) Weight: 134 lbs 08/06/2015 Blood Pressure 1: 114/76 Code: 8480-6 BMI: 23.2 Code: 82925-8 Heart Rate 1: 88 bpm Height: 5'3" Respiratory Rate: 22 bpm Temperature: 36 .6 (C) / 97.9 (F) Weight: 131 lbs 07/18/2015 Blood Pressure 1: 144/78 Code: 8480-6 BMI: 23.7 Code: 63862-1 Heart Rate 1: 84 bpm Height: 5'3" Respiratory Rate: 20 bpm Temperature: 37 .2 (C) / 99.0 (F) Weight: 134 lbs 04/10/2015 Blood Pressure 1: 110/64 Code: 8480-6 Heart Rate 1: 80 bpm Height: Respiratory Rate: 20 bpm Temperature: 37.1 (C) / 98.8 (F) Weight: 03/05/2015 Blood Pressure 1: 136/80 Code: 8480-6 BMI: 23.9 Code: 58840-6 Heart Rate 1: 76 bpm Height: 5'3" Respiratory Rate: 24 bpm Temperature: 37 .0 (C) / 98.6 (F) Weight: 135 lbs 01/30/2015 Blood Pressure 1: 142/80 Code: 8480-6 BMI: 23.0 Code: 67584-7 Heart Rate 1: 96 bpm Height: 5'3" Respiratory Rate: 22 bpm Temperature: 36 .2 (C) / 97.2 (F) Weight: 130 lbs 01/02/2015 Blood Pressure 1: 124/70 Code: 8480-6 BMI: 23.4 Code: 37945-4 Heart Rate 1: 84 bpm Height: 5'3" Respiratory Rate: 24 bpm SpO2: 95% Tempera ture: 36.9 (C) / 98.5 (F) Weight: 132 lbs 10/03/2014 Blood Pressure 1: 106/68 Code: 8480-6 BMI: 22.5 Code: 93149-4 Heart Rate 1: 88 bpm Height: 5'3" Respiratory Rate: 24 bpm Temperature: 37 .0 (C) / 98.6 (F) Weight: 127 lbs 08/27/2014 Blood Pressure 1: 124/68 Code: 8480-6 BMI: 21.1 Code: 01781-9 Heart Rate 1: 88 bpm Height: 5'3" [...] 1: 120/70 Code: 8480-6 BMI: 19.2 Code: 85789-2 Heart Rate 1: 70 bpm Height: 5'4" Respiratory Rate: 20 bpm Temperature: 36 .9 (C) / 98.4 (F) Weight: 112 lbs 06/28/2013 Blood Pressure 1: 102/ Code: 8480-6 BMI: 19.6 Code: 19459-4 Heart Rate 1: 76 bpm Height: 5'4" Respiratory Rate: 20 bpm Temperature: 36 .8 (C) / 98.2 (F) Weight: 114 lbs 05/31/2013 Blood Pressure 1: 106/70 Code: 8480-6 BMI: 18.9 Code: 08237-2 Heart Rate 1: 100 bpm Height: 5'4" Respiratory Rate: 20 bpm Temperature: 36 .4 (C) / 97.6 (F) Weight: 110 lbs 05/03/2013 Blood Pressure 1: 126/70 Code: 8480-6 BMI: 19.1 Code: 77010-5 Heart Rate 1: 88 bpm Height: 5'4" Respiratory Rate: 20 bpm Temperature: 37 .1 (C) / 98.8 (F) Weight: 111 lbs 04/25/2013 Blood Pressure 1: 114/68 Code: 8480-6 BMI: 19.4 Code: 27831-6 Heart Rate 1: 92 bpm Height: 5'4" Respiratory Rate: 24 bpm SpO2: 96% Tempera ture: 37.7 (C) / 99.8 (F) Weight: 113 lbs 03/08/2013 Blood Pressure 1: 94/68 Code: 8480-6 BMI: 21.3 C ode: 72853-4 Heart Rate 1: 88 bpm Height: 5'4" Respiratory Rate: 24 bpm Temperature: 37 .0 (C) / 98.6 (F) Weight: 124 lbs 02/07/2013 Blood Pressure 1: 106/64 Code: 8480-6 BMI: 21.8 Code: 92529-0 Heart Rate 1: 84 bpm Height: 5'4" Respiratory Rate: 22 bpm Temperature: 36 .8 (C) / 98.2 (F) Weight: 127 lbs 01/10/2013 Blood Pressure 1: 122/68 Code: 8480-6 BMI: 21.6 Code: 42533-1 Heart Rate 1: 94 bpm Height: 5'4" SpO2: 94% Temperature: 36.7 (C) / 98.1 (F) Weight: 126 lbs 09/28/2012 Blood Pressure 1: 124/78 Code: 8480-6 BMI: 24.9 Code: 09933-7 Heart Rate 1: 92 bpm Height: 5'4" Respiratory Rate: 20 bpm Temperature: 36 .7 (C) / 98.1 (F) Weight: 145 lbs 06/28/2012 Blood Pressure 1: 134/80 Code: 8480-6 BMI: 24.9 Code: 11931-6 Heart Rate 1: 76 bpm Height: 5'4" Respiratory Rate: 20 bpm Temperature: 36 .8 (C) / 98.2 (F) Weight: 145 lbs 05/03/2012 Blood Pressure 1: 108/62 Code: 8480-6 BMI: 25.6 Code: 17220-7 Heart Rate 1: 88 bpm Height: 5'4" Temperature: 36.2 (C) / 97.2 (F) Weight: 149 lbs 03/01/2012 Blood Pressure 1: 124/66 Code: 8480-6 BMI: 25.1 Code: 80413-5 Heart Rate 1: 76 bpm Height: 5'4" Respiratory Rate: 20 bpm Temperature: 36 .6 (C) / 97.9 (F) Weight: 146 lbs 01/26/2012 Blood Pressure 1: 118/82 Code: 8480-6 BMI: 25.1 Code: 90364-1 Heart Rate 1: 74 bpm Height: 5'4" Temperature: 36.8 (C) / 98.2 (F) Weight: 146 lbs 11/03/2011 Blood Pressure 1: 126/80 Code: 8480-6 BMI: 27.3 Code: 39254-9 Heart Rate 1: 72 bpm Height: 5'4" [...] prozac Encounters Encounter Performer Location Codes Date ([id number]) OFFICE/OUTPATIENT VISIT EST Diagnosis: Chronic pain syndrome[ICD10: G89.4] Diagnosis: Lumbar degenerative disc disease[ICD10: M51.36] Diagnosis: Muscle spasm[ICD10: M62.838] Vika RENTERIA [facility] CPT-4: 98897 10/30/2019 ([id number]) OFFICE/OUTPATIENT VISIT EST Diagnosis: Chronic pain syndrome[ICD10: G89.4] Vika RENTERIA [facility] CPT-4: 12054 10/25/2019 ([id number]) OFFICE/OUTPATIENT VISIT EST Diagnosis: Epigastric pain[ICD10: R10.13] Diagnosis: Nausea[ICD10: R11.0] Diagnosis: Chronic obstructive pulmonary disease, unspecified[ICD10: J44.9] Vika RENTERIA DO [facility] CPT-4: 48847 07/26/2019 ([id number]) OFFICE/OUTPATIENT VISIT EST Diagnosis: Chronic obstructive pulmonary disease with (acute) exacerbation[ICD10: J44.1] Diagnosis: Chronic respiratory failure with hypoxia[ICD10: J96.11] Diagnosis: Other fatigue[ICD10: R53.83] Diagnosis: Edema, unspecified[ICD10: R60.9] Vika RENTERIA DO [facility] CPT-4: 36361 07/19/2019 ([id number]) OFFICE/OUTPATIENT VISIT EST Diagnosis: Chronic obstructive pulmonary disease with acute lower respiratory infection[ICD10: J44.0] Vika RENTERIA DO [facility] CPT-4: 99253 07/10/2019 ([id number]) OFFICE/OUTPATIENT VISIT EST Diagnosis: Type 2 diabetes mellitus with hyperglycemia[ICD10: E11.65] Diagnosis: Other infective otitis externa, left ear[ICD10: H60.392] Vika RENTERIA DO [facility] CPT-4: 10203 06/05/2019 ([id number]) OFFICE/OUTPATIENT VISIT EST Diagnosis: Chronic obstructive pulmonary disease with (acute) exacerbation[ICD10: J44.1] Diagnosis: Type 2 diabetes mellitus with hyperglycemia[ICD10: E11.65] Vika RENTERIA DO [facility] CPT-4: 77235 05/03/2019 ([id number]) OFFICE/OUTPATIENT VISIT EST Diagnosis: Type 2 diabetes mellitus with hyperglycemia[ICD10: E11.65] Diagnosis: Abnormal weight gain[ICD10: R63.5] Diagnosis: Chronic obstructive pulmonary disease with acute lower respiratory infection[ICD10: J44.0] Vika RENTERIA DO [facility] CPT-4: 72974 04/11/2019 ([id number]) OFFICE/OUTPATIENT VISIT EST Diagnosis: Hypothyroidism, unspecified[ICD10: E03.9] Diagnosis: Abnormal weight gain[ICD10: R63.5] Diagnosis: Other fatigue[ICD10: R53.83] Vika RENTERIA DO [facility] CPT-4: 15374 03/16/2019 ([id number]) OFFICE/OUTPATIENT VISIT EST Diagnosis: Abnormal weight gain[ICD10: R63.5] Diagnosis: Chronic obstructive pulmonary disease, unspecified[ICD10: J44.9] Diagnosis: Other chronic pain[ICD10: G89.29] V[facility] RENTER[facility] CPT-4: 01537 02/13/2019 ([id number]) OFFICE/OUTPATIENT VISIT EST Diagnosis: Chronic pain syndrome[ICD10: G89.4] Diagnosis: Edema, unspecified[ICD10: R60.9] Diagnosis: Major depressive disorder, 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] Diagnosis: Other fatigue[ICD10: R53.83] Vika RENTERIA DO [facility] CPT-4: 64876 01/25/2019 ([id number]) OFFICE/OUTPATIENT VISIT EST Diagnosis: Localized edema[ICD10: R60.0] Diagnosis: Other forms of dyspnea[ICD10: R06.09] Diagnosis: Hypothyroidism, unspecified[ICD10: E03.9] Vika RENTERIA [facility] CPT-4: 71704 01/03/2019 ([id number]) OFFICE/OUTPATIENT VISIT EST Diagnosis: Abnormal weight gain[ICD10: R63.5] Diagnosis: Localized edema[ICD10: R60.0] Diagnosis: Chronic pain syndrome[ICD10: G89.4] Vika RENTERIA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
--- OUTSIDE RECORDS SUMMARY | 2020-04-24 23:42 | XMS REPORT | CCD ---
Author Author Yana Renteria D.O. 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 Name Role Phone Vika Renteria D.O., PP Unavailable CCM Unavailable Summary Purpose Interface Exchange Insurance Providers Payer name Policy type / Coverage type Covered constitution party ID Effective Begin Date Effective End Date [employer] [facility] Medicaid [id number] 2018 U nknown Family History Family History data not found Social History Social History Element Codes Description Effective Dates Marital status Unknown 06/28/[address]: [id number] Currently smokes tobacco 05/2013 Allergies, Adverse Reactions, [...] MS Contin 100 mg tablet,extended release RxNorm: 815180 1 Table t(s) Oral QD 10/30/2019 11/29/2019 Active ferrous sulfate 325 mg (65 mg iron) tablet RxNorm: 053449 1 Tab let(s) Oral QD 10/30/2019 No Stop Date Active Relistor 150 mg tablet RxNorm: 1668591 TAKE THREE TABLETS BY BENOIT TH DAILY 10/25/2019 No Stop Date Active oxycodone 15 mg tablet RxNorm: 6263261 1 Tablet(s) Oral four times a day as needed for pain 10/25/2019 10/25/2019 Inactive pantoprazole 40 mg tablet,delayed release RxNorm: 947896 1 Tabl et(s) Oral QD 10/25/2019 No Stop Date Active metformin 500 mg tablet RxNorm: 544697 1 Tablet(s) Oral QD 10/25/20 19 No Stop Date Active levothyroxine 25 mcg tablet RxNorm: 786147 1 Tablet(s) Oral QAM 02/201912/23/2019 Active Minipress 2 mg capsule RxNorm: 368728 1 Capsule(s) Oral QAM and 3 at bedtime 10/25/2019 No Stop Date Active Lancets, Super Thin RxNorm: 1 Unit Dose Miscellaneous QD 9 11/27/2020 Active Cymbalta 60 mg capsule,delayed release RxNorm: 689270 1 Capsule (s) Oral QAM 10/25/2019 No Stop Date Active Cymbalta 30 mg capsule,delayed release RxNorm: 354670 1 Capsule (s) Oral QAM 10/25/2019 No Stop Date Active levothyroxine 25 mcg tablet RxNorm: 815370 1 Tablet(s) Oral QAM 02/201910/24/2019 Inactive MS Contin 100 mg tablet,extended release RxNorm: 201351 1 Tablet(s) Oral two times a day replaces fentanyl 10/25/2019 10/25/2019 Inactive Premarin 0.45 mg tablet RxNorm: 168006 TAKE ONE TABLET BY MOUTH DAILY 10/24/2019 No Stop Date Active Duragesic 100 mcg/hr transdermal patch RxNorm: 446274 2 Application TD Q48H for pain 10/18/2019 10/24/2019 Inactive gabapentin 300 mg capsule RxNorm: 139844 TAKE ONE CAPSULE BY MO UTH TWICE A DAY 10/16/2019 No Stop Date Active cyclobenzaprine 10 mg tablet RxNorm: 085665 TAKE ONE TA BLET BY MOUTH THREE TIMES A DAY NEEDED 09/27/2019 No Stop Date Active ProAir HFA 90 mcg/actuation aerosol inhaler RxNorm: 820729 INHALE ONE PUFF BY MOUTH EVERY 4 HOURS FOR WHEEZING OR FOR SHORTNESS OF BREATH 09/25/2019 No Stop Date Active furosemide 40 mg tablet RxNorm: 453542 1 Tablet(s) Oral QAM as needed 09/25/2019 09/25/2019 Inactive Relistor 150 mg tablet RxNorm: 1957646 TAKE THREE TABLETS BY BENOIT TH DAILY 09/25/2019 10/24/2019 Inactive oxycodone 15 mg tablet RxNorm: 8680388 1 Tablet(s) PO QID as nee ded for pain 09/21/2019 10/24/2019 Inactive Duragesic 100 mcg/hr transdermal patch RxNorm: 790062 2 Application TD Q48H for pain 09/19/2019 10/17/2019 Inactive Daliresp 500 mcg tablet RxNorm: 3904371 1 Tablet(s) Oral QD 019 03/08/2020 Active potassium chloride ER 20 mEq tablet,extended release RxNorm: 431346 TAKE ONE TABLET BY MOUTH DAILY 07/25/2019 01/20/2020 Active Relistor 150 mg tablet RxNorm: 9087779 TAKE THREE TABLETS BY BENOIT TH DAILY 07/25/2019 07/30/2019 Inactive cyclobenzaprine 10 mg tablet RxNorm: 220845 TAKE ONE TA BLET BY MOUTH THREE TIMES A DAY NEEDED 07/25/2019 09/22/2019 Inactive fluoxetine 40 mg capsule RxNorm: 661848 TAKE ONE CAPSULE BY BENOIT TH EVERY MORNING 07/11/2019 10/24/2019 Inactive Medrol (Aníbal) 4 mg tablets in a dose pack RxNorm: 806278 6 Tablet(s) PO QD --then as directed 07/10/2019 07/15/2019 Inactive omeprazole 40 mg capsule,delayed release RxNorm: 972889 1 Capsule(s) PO QD for stomach TAKE ONE CAPSULE BY MOUTH DAILY 07/10/2019 10/24/2019 Inactive Augmentin 875 mg-125 mg tablet RxNorm: 256795 1 Tablet(s) PO BID 07/16/2019 Inactive Trulicity 0.75 mg/0.5 mL subcutaneous pen injector RxNorm: 1 414783 0.75 Milliliter(s) SQ weekly 07/05/2019 10/24/2019 Inactive Compazine 10 mg tablet RxNorm: 809189 TAKE ONE TABLET B Y MOUTH FOUR TIMES A DAY NEEDED FOR NAUSEA 06/20/2019 07/19/2019 Inactive ProAir HFA 90 mcg/actuation aerosol inhaler RxNorm: 104845 INHALE ONE PUFF BY MOUTH EVERY 4 HOURS FOR WHEEZING OR FOR SHORTNESS OF BREATH 06/20/2019 06/23/2019 Inactive Daliresp 500 mcg tablet RxNorm: 6836354 TAKE ONE TABLET BY MOUTH DAILY 06/12/2019 09/10/2019 Inactive bcqdkpvn-qkisffzzr-nendmxxbd 3.5 mg/mL-10,000 unit/mL- 1 % ear solution RxNorm: 205541 4 Drop(s) otic (ear) TID to left ear 06/05/2019 10/24/2019 Inac tive furosemide 40 mg tablet RxNorm: 542979 TAKE ONE TABLET BY MOUTH EVERY MORNING 05/26/2019 07/09/2019 Inactive Duragesic 100 mcg/hr transdermal patch RxNorm: 898613 2 Application TD Q48H for pain 05/16/2019 06/14/2019 Inactive oxycodone 15 mg tablet RxNorm: 4621027 1 Tablet(s) PO QID as nee ded for pain 05/10/2019 09/20/2019 Inactive doxycycline hyclate 100 mg capsule RxNorm: 7519942 1 Capsule(s) PO BID 05/03/2019 05/12/2019 Inactive prednisone 20 mg tablet RxNorm: 769206 1 Tablet(s) PO T ID for 3 days then 1 po BID for 3 days then one daily for 3 days 05/03/2019 07/11/2019 Inactiv e Ozempic 0.25 mg or 0.5 mg (2 mg/1.5 mL) subcutaneous p en injector RxNorm: 6213168 0.5 Milligram(s) SQ QW 05/03/2019 07/09/2019 Inactive fluconazole 100 mg tablet RxNorm: 637398 1 Tablet(s) PO QD 05/03/2005/07/2019 Inactive Premarin 0.45 mg tablet RxNorm: 759447 TAKE ONE TABLET BY MOUTH DAILY 05/03/2019 10/23/2019 Inactive potassium chloride ER 20 mEq tablet,extended release RxNorm: 797856 1 Tablet(s) PO QD 04/27/2019 07/25/2019 Inactive potassium chloride ER 20 mEq tablet,extended release RxNorm: 503677 1 Tablet(s) PO QD 04/25/2019 04/26/2019 Inactive Compazine 10 mg tablet RxNorm: 259045 1 Tablet(s) PO QID as nee ded for nausea 04/25/2019 05/04/2019 Inactive ProAir HFA 90 mcg/actuation aerosol inhaler RxNorm: 632036 INHALE ONE PUFF BY MOUTH EVERY 4 HOURS FOR WHEEZING OR FOR SHORTNESS OF BREATH 04/12/2019 06/10/2019 Inactive Medrol (Aníbal) 4 mg tablets in a dose pack RxNorm: 534091 6 Tablet(s) PO QD --then as directed 04/11/2019 04/16/2019 Inactive Symbicort 160 mcg-4.5 mcg/actuation HFA aerosol inhaler RxNo rm: 1548035 2 Puff(s) INH BID 04/10/2019 10/06/2019 Inactive levothyroxine 50 mcg tablet RxNorm: 198609 1 Tablet(s) PO QD 201810/24/2019 Inactive gabapentin 300 mg capsule RxNorm: 162242 1 Capsule(s) PO BID 201810/02/2019 Inactive Symbicort 160 mcg-4.5 mcg/actuation HFA aerosol inhaler RxNo rm: 4214896 2 Puff(s) INH BID 04/06/2019 04/09/2019 Inactive oxycodone 15 mg tablet RxNorm: 0417681 1 Tablet(s) PO QID as nee ded for pain 04/05/2019 05/09/2019 Inactive levothyroxine 50 mcg tablet RxNorm: 097507 1 Tablet(s) PO QD 201804/09/2019 Inactive furosemide 40 mg tablet RxNorm: 231399 TAKE ONE TABLET BY MOUTH EVERY MORNING 03/21/2019 04/19/2019 Inactive levothyroxine 50 mcg tablet RxNorm: 768038 TAKE ONE TABLET BY M OUTH DAILY 03/21/2019 03/27/2019 Inactive Duragesic 100 mcg/hr transdermal patch RxNorm: 566358 2 Application TD Q48H for pain 03/13/2019 04/11/2019 Inactive oxycodone 15 mg tablet RxNorm: 1089750 1 Tablet(s) PO QID as nee ded for pain 03/06/2019 04/04/2019 Inactive Relistor 150 mg tablet RxNorm: 3669269 3 Tablet(s) PO QD 02/28/2019 0 05/28/2019 Inactive cyclobenzaprine 10 mg tablet RxNorm: 128288 1 Tablet(s) PO TID as needed 02/28/2019 05/28/2019 Inactive phentermine 37.5 mg tablet RxNorm: 705402 1 Tablet(s) PO QAM 201803/15/2019 Inactive Duragesic 100 mcg/hr transdermal patch RxNorm: 624817 2 Application TD Q48H for pain 02/09/2019 03/10/2019 Inactive Daliresp 500 mcg tablet RxNorm: 8077752 TAKE ONE TABLET BY MOUTH DAILY 01/31/2019 05/30/2019 Inactive Premarin 0.45 mg tablet RxNorm: 998612 1 Tablet(s) PO QD 01/31/2019 0 04/30/2019 Inactive fluoxetine 40 mg capsule RxNorm: 660041 Capsule(s) TAKE ONE CAPSULE BY MOUTH EVERY MORNING 01/31/2019 04/30/2019 Inactive levothyroxine 50 mcg tablet RxNorm: 576689 1 Tablet(s) PO QD 201804/10/2019 Inactive follow up in 3 weeks levothyroxine 50 mcg tablet RxNorm: 948955 1 Tablet(s) PO QD 201801/25/2019 Inactive follow up in 3 weeks potassium chloride ER 20 mEq tablet,extended release RxNorm: 673692 2 Tablet(s) PO BID 01/23/2019 02/14/2019 Inactive Synthroid 50 mcg tablet RxNorm: 926431 TAKE ONE TABLET BY MOUTH DAILY 01/16/2019 10/24/2019 Inactive potassium chloride ER 20 mEq tablet,extended release RxNorm: 872543 2 Tablet(s) PO BID 01/04/2019 01/22/2019 Inactive ProAir HFA 90 mcg/actuation aerosol inhaler RxNorm: 989895 INHALE ONE PUFF BY MOUTH EVERY 4 HOURS FOR WHEEZING OR SHORTNESS OF BREATH 01/04/201902/20 Inactive Request already responded to by other me ans (e.g. phone or fax) ProAir HFA 90 mcg/actuation aerosol inhaler RxNorm: 1367882 INHALE ONE PUFF BY MOUTH EVERY 4 HOURS FOR WHEEZING OR SHORTNESS OF BREATH 01/02/201912/23 Inactive gabapentin 300 mg capsule RxNorm: 091815 TAKE ONE CAPSULE BY MO UTH TWICE A DAY 12/30/2018 04/06/2019 Inactive furosemide 40 mg tablet RxNorm: 809664 1 Tablet(s) PO QAM 12/26/2018 02/23/2019 Inactive Compazine 10 mg tablet RxNorm: 895030 1 Tablet(s) PO QID as nee ded for nausea 12/07/2018 12/16/2018 Inactive metolazone 2.5 mg tablet RxNorm: 301185 TAKE ONE TABLET BY MOUT H EVERY MORNING 12/05/2018 01/03/2019 Inactive metformin ER 500 mg tablet,extended release 24 hr RxNorm: 86 0975 TAKE ONE TABLET BY MOUTH DAILY 12/05/2018 04/10/2019 Inactive Synthroid 50 mcg tablet RxNorm: 549437 1 Tablet(s) PO QD 11/25/2018 0 01/03/2019 Inactive DC any other synthroid strengths. Should be 50mcg only cyclobenzaprine 10 mg tablet RxNorm: 626963 TAKE ONE TA BLET BY MOUTH THREE TIMES A DAY NEEDED 11/09/2018 02/06/2019 Inactive metolazone 2.5 mg tablet RxNorm: 357546 1 Tablet(s) PO QAM repl aces 5mg dose 11/02/2018 12/01/2018 Inactive potassium chloride ER 20 mEq tablet,extended release RxNorm: 136211 2 Tablet(s) PO QD 2018 01/02/2019 Inactive Compazine 10 mg tablet RxNorm: 190061 1 Tablet(s) PO QID as nee ded for nausea 10/18/2018 12/07/2018 Inactive furosemide 40 mg tablet RxNorm: 342606 1 Tablet(s) PO QAM 10/12/2018 12/10/2018 Inactive ondansetron 8 mg disintegrating tablet RxNorm: 775518 1 Tablet(s) PO Q6H as needed 10/11/2018 10/17/2018 Inactive scopolamine 1 mg over 3 days transdermal patch RxNorm: 39242 2 1 Application TD behind ear. Take off after three days 10/11/2018 01/02/2019 Inactive furosemide 40 mg tablet RxNorm: 379131 1 Tablet(s) PO QAM 10/10/2018 12/26/2018 Inactive metolazone 5 mg tablet RxNorm: 091210 1 Tablet(s) PO QAM 10/06/2018 1 01/03/2018 Inactive metolazone 5 mg tablet RxNorm: 653956 1 Tablet(s) PO QAM 10/06/2018 1 12/05/2017 Inactive Xtampza ER 36 mg capsule sprinkle RxNorm: 6748161 1 Capsule(s) P O BID 10/05/2018 01/02/2019 Inactive Xtampza ER 36 mg capsule sprinkle RxNorm: 6177004 1 Capsule(s) P O BID 10/05/2018 02/12/2019 Inactive omeprazole 40 mg capsule,delayed release RxNorm: 953085 TAKE ONE CAPSULE BY MOUTH DAILY 10/03/2018 12/31/2018 Inactive Duragesic 100 mcg/hr transdermal patch RxNorm: 046208 2 Application TD Q48H for pain 09/30/2018 10/29/2018 Inactive Synthroid 50 mcg tablet RxNorm: 032566 1 Tablet(s) PO QD 09/29/2018 0 11/25/2018 Inactive DC any other synthroid strengths. Should be 50mcg only Synthroid 50 mcg tablet RxNorm: 453611 1 Tablet(s) PO QD 09/29/2018 1 11/28/2017 Inactive furosemide 40 mg tablet RxNorm: 507290 2 Tablet(s) PO Q AM for 1 week then every other day for 2 weeks 09/27/2018 10/12/2018 Inactive fluoxetine 40 mg capsule RxNorm: 407099 2 Capsule(s) PO QD 09/27/20 18 10/17/2018 Inactive potassium chloride ER 20 mEq tablet,extended release RxNorm: 630916 2 Tablet(s) PO QD for 1 week then every other day for 2 weeks 09/27/2018 2018 Inactive ProAir HFA 90 mcg/actuation aerosol inhaler RxNorm: 4937877 INHALE ONE PUFF BY MOUTH EVERY 4 HOURS FOR WHEEZING OR SHORTNESS OF BREATH 09/26/201811/23 Inactive Synthroid 75 mcg tablet RxNorm: 478902 1 Tablet(s) PO QD 09/09/2018 1 Inactive Synthroid 75 mcg tablet RxNorm: 320033 1 Tablet(s) PO QD 09/09/2018 1 11/28/2017 Inactive furosemide 40 mg tablet RxNorm: 917456 1 Tablet(s) PO QD 09/06/2018 1 Inactive potassium chloride ER 20 mEq tablet,extended release RxNorm: 517041 1 Tablet(s) PO QD 09/06/2018 09/19/2018 Inactive Duragesic 100 mcg/hr transdermal patch RxNorm: 218529 2 Application TD Q48H for pain 08/30/2018 09/28/2018 Inactive gabapentin 300 mg capsule RxNorm: 178041 TAKE ONE CAPSULE BY [facility] TWICE A DAY 08/23/2018 12/20/2018 Inactive Daliresp 500 mcg tablet RxNorm: 5915772 TAKE ONE TABLET BY MOUTH DAILY 08/23/2018 01/19/2019 Inactive Pulmicort 1 mg/2 mL suspension for nebulization RxNorm: 6168 19 USE ONE VIAL VIA NEBULIZER BY MOUTH TWICE A DAY 08/23/2018 07/11/2019 Inactive Synthroid 88 mcg tablet RxNorm: 650382 1 Tablet(s) PO QD 08/19/2018 Inactive Medrol (Aníbal) 4 mg tablets in a dose pack RxNorm: 824913 Tablet(s) PO take as directed 08/16/2018 09/05/2018 Inactive Relistor 150 mg tablet RxNorm: 0581182 3 Tablet(s) PO QD 08/16/2018 1 Inactive Zithromax Z-Aníbal 250 mg tablet RxNorm: 445055 Tablet(s) PO take as directed 08/16/2018 09/05/2018 Inactive cyclobenzaprine 10 mg tablet RxNorm: 734451 1 Tablet(s) PO TID as needed 08/16/2018 11/08/2018 Inactive Synthroid 88 mcg tablet RxNorm: 445896 1 Tablet(s) PO Q D NEEDS UPDATED LABS BEFORE FURTHER REFILLS 08/08/2018 08/19/2018 Inactive Premarin 0.45 mg tablet RxNorm: 515755 1 Tablet(s) PO QD 08/03/2018 0 01/31/2019 Inactive fluoxetine 20 mg capsule RxNorm: 324624 TAKE ONE CAPSULE BY BENOIT TH DAILY 08/03/2018 09/26/2018 Inactive Xtampza ER 36 mg capsule sprinkle RxNorm: 8125928 1 Capsule(s) P O BID 08/03/2018 09/01/2018 Inactive metformin ER 500 mg tablet,extended release 24 hr RxNorm: 86 0975 1 Tablet(s) PO QD 08/03/2018 10/31/2018 Inactive Symbicort 160 mcg-4.5 mcg/actuation HFA aerosol inhaler RxNo rm: 9936352 2 Puff(s) INH BID 08/03/2018 01/29/2019 Inactive Duragesic 100 mcg/hr transdermal patch RxNorm: 647528 2 Application TD Q48H for pain 07/29/2018 08/27/2018 Inactive ProAir HFA 90 mcg/actuation aerosol inhaler RxNorm: 191618 INHALE TWO PUFFS BY MOUTH EVERY 4 HOURS FOR WHEEZING OR SHORTNESS OF BREATH 07/27/201802/2018 Inactive Relistor 150 mg tablet RxNorm: 0168014 3 Tablet(s) PO QD 07/20/2018 0 08/15/2018 Inactive metformin ER 500 mg tablet,extended release 24 hr RxNorm: 86 0975 TAKE ONE TABLET BY MOUTH DAILY 07/08/2018 08/02/2018 Inactive fluoxetine 40 mg capsule RxNorm: 399258 TAKE ONE CAPSULE BY BENOIT TH EVERY MORNING 07/08/2018 10/05/2018 Inactive Xtampza ER 18 mg capsule sprinkle RxNorm: 3186372 1 Capsule(s) P O BID 07/08/2018 08/02/2018 Inactive Relistor 150 mg tablet RxNorm: 7197016 3 Tablet(s) PO QD 07/08/2018 0 07/12/2018 Inactive Synthroid 88 mcg tablet RxNorm: 537447 1 Tablet(s) PO Q D NEEDS UPDATED LABS BEFORE FURTHER REFILLS 06/23/2018 07/07/2018 Inactive fluoxetine 40 mg capsule RxNorm: 194152 TAKE ONE CAPSULE BY BENOIT TH EVERY MORNING 06/15/2018 09/26/2018 Inactive orphenadrine citrate ER 100 mg tablet,extended release RxNor m: 709030 TAKE ONE TABLET BY MOUTH TWICE A DAY FOR MUSCLE SPASM 06/15/2018 08/15/2018 [place] ctive Duragesic 100 mcg/hr transdermal patch RxNorm: 029853 2 Application TD Q48H for pain 05/30/2018 06/28/2018 Inactive ProAir HFA 90 mcg/actuation aerosol inhaler RxNorm: 375557 INHALE TWO PUFFS BY MOUTH EVERY 4 HOURS FOR WHEEZING OR SHORTNESS OF BREATH 05/19/201803/2018 Inactive Chantix Continuing Month Box 1 mg tablet RxNorm: 209499 TAKE ONE TABLET BY MOUTH TWICE A DAY 05/19/2018 08/15/2018 Inactive oxycodone 10 mg tablet RxNorm: 6432890 1-2 Tablet(s) PO QID as n eeded for pain 05/19/2018 07/07/2018 Inactive gabapentin 300 mg capsule RxNorm: 186318 TAKE ONE CAPSULE BY MO [facility] TWICE A DAY 05/18/2018 07/16/2018 Inactive ProAir HFA 90 mcg/actuation aerosol inhaler RxNorm: 380332 INHALE TWO PUFFS BY MOUTH EVERY 4 HOURS FOR WHEEZING OR SHORTNESS OF BREATH 05/04/201804/23 Inactive Augmentin 500 mg-125 mg tablet RxNorm: 265686 1 Tablet(s) PO BID 05/03/2018 Inactive oxycodone 10 mg tablet RxNorm: 6438156 1-2 Tablet(s) PO QID as n eeded for pain 04/21/2018 05/18/2018 Inactive Synthroid 88 mcg tablet RxNorm: 260050 1 Tablet(s) PO QD 04/15/2018 0 08/08/2018 Inactive Symbicort 160 mcg-4.5 mcg/actuation HFA aerosol inhaler RxNo rm: 6623579 2 Puff(s) INH BID 04/15/2018 04/10/2019 Inactive Premarin 0.45 mg tablet RxNorm: 632322 1 Tablet(s) PO QD 04/15/2018 0 08/03/2018 Inactive ProAir HFA 90 mcg/actuation aerosol inhaler RxNorm: 077401 2 Puff(s) INH Q4H prn for wheezing or shortness of breath 04/15/2018 05/03/2018 Inactive metformin ER 500 mg tablet,extended release 24 hr RxNorm: 86 0975 1 Tablet(s) PO QD 04/11/2018 07/07/2018 Inactive omeprazole 40 mg capsule,delayed release RxNorm: 952493 TAKE ONE CAPSULE BY MOUTH DAILY 04/10/2018 06/08/2018 Inactive Synthroid 88 mcg tablet RxNorm: 796790 1 Tablet(s) PO QD 04/04/2018 0 04/14/2018 Inactive Synthroid 88 mcg tablet RxNorm: 223037 1 Tablet(s) PO QD 04/04/2018 0 04/03/2018 Inactive orphenadrine citrate ER 100 mg tablet,extended release RxNor m: 600522 1 Tablet(s) PO BID for muscle spasm 04/04/2018 05/03/2018 Inactive metformin ER 500 mg tablet,extended release 24 hr RxNorm: 86 0975 1 Tablet(s) PO QD NEEDS UPDATED LABS 03/31/2018 04/11/2018 Inactive doxycycline hyclate 100 mg capsule RxNorm: 2137051 1 Capsule(s) PO BID 03/31/2018 04/09/2018 Inactive prednisone 20 mg tablet RxNorm: 142260 3 Tablet(s) PO T ID for 3 days then 1 po BID for 3 days then one daily for 3 days 03/31/2018 07/06/2018 Inactiv e Chantix Continuing Month Box 1 mg tablet RxNorm: 251655 TAKE ONE TABLET BY MOUTH TWICE A DAY 03/25/2018 03/30/2018 Inactive oxycodone 10 mg tablet RxNorm: 6103543 1-2 Tablet(s) PO QID as n eeded for pain 03/21/2018 04/20/2018 Inactive Daliresp 500 mcg tablet RxNorm: 7164792 1 Tablet(s) PO QD 03/15/2018 08/22/2018 Inactive metformin ER 500 mg tablet,extended release 24 hr RxNorm: 86 0975 1 Tablet(s) PO QD NEEDS UPDATED LABS 03/14/2018 03/31/2018 Inactive nystatin 100,000 unit/mL oral suspension RxNorm: 163163 5 [place] liter(s) PO QID 03/02/2018 03/15/2018 Inactive nystatin 100,000 unit/mL oral suspension RxNorm: 064411 5 [place]io liter(s) PO QID 03/02/2018 03/01/2018 Inactive oxycodone 10 mg tablet RxNorm: 9924064 1-2 Tablet(s) PO QID as n eeded for pain 02/16/2018 03/20/2018 Inactive fluoxetine 20 mg capsule RxNorm: 938176 1 Capsule(s) PO QD 02/15/20 18 08/02/2018 Inactive metformin ER 500 mg tablet,extended release 24 hr RxNorm: 86 0975 1 Tablet(s) PO QD Needs updated labs 02/14/2018 03/14/2018 Inactive cefdinir 300 mg capsule RxNorm: 362272 1 Capsule(s) PO BID 01/27/20 18 02/04/2018 Inactive orphenadrine citrate ER 100 mg tablet,extended release RxNor m: 060206 1 Tablet(s) PO BID for muscle spasm 01/26/2018 04/04/2018 Inactive gabapentin 300 mg capsule RxNorm: 459565 1 Capsule(s) PO BID 201704/17/2018 Inactive oxycodone 10 mg tablet RxNorm: 9299637 1-2 Tablet(s) PO QID as n eeded for pain 01/17/2018 02/15/2018 Inactive Duragesic 100 mcg/hr transdermal patch RxNorm: 345108 2 Application TD Q48H for pain 01/17/2018 02/15/2018 Inactive gabapentin 300 mg capsule RxNorm: 034740 TAKE ONE CAPSULE BY MO [facility] TWICE A DAY 12/20/2017 01/18/2018 Inactive fluoxetine 40 mg capsule RxNorm: 269849 TAKE ONE CAPSULE BY BENOIT TH EVERY MORNING 12/15/2017 03/14/2018 Inactive OneTouch Ultra Test strips RxNorm: TEST DAILY 11/04/2017 02/01/2018 Inactive gabapentin 300 mg capsule RxNorm: 447540 1 Capsule(s) P O TID replaces BID dosing 10/26/2017 02/22/2018 Inactive oxycodone 10 mg tablet RxNorm: 6039274 1-2 Tablet(s) PO QID as n eeded for pain 10/18/2017 01/16/2018 Inactive Duragesic 100 mcg/hr transdermal patch RxNorm: 534834 2 Application TD Q48H for pain 10/18/2017 11/16/2017 Inactive gabapentin 300 mg capsule RxNorm: 773144 1 Capsule(s) PO BID 201610/25/2017 Inactive Abilify 5 mg tablet RxNorm: 489837 1 Tablet(s) PO QAM 09/23/201702/2017 Inactive gabapentin 300 mg capsule RxNorm: 871445 1 Capsule(s) PO BID 201610/17/2017 Inactive oxycodone 10 mg tablet RxNorm: 9971145 1-2 Tablet(s) PO QID as n eeded for pain 09/15/2017 10/17/2017 Inactive Duragesic 100 mcg/hr transdermal patch RxNorm: 132803 2 Application TD Q48H for pain 09/15/2017 10/14/2017 Inactive Duragesic 100 mcg/hr transdermal patch RxNorm: 096608 2 Application TD Q48H for pain 09/15/2017 10/24/2019 Inactive oxycodone 10 mg tablet RxNorm: 3503715 1-2 Tablet(s) PO QID as n eeded for pain 09/15/2017 08/15/2018 Inactive Daliresp 500 mcg tablet RxNorm: 5358857 1 Tablet(s) PO QD 09/06/2017 03/15/2018 Inactive Ventolin HFA 90 mcg/actuation aerosol inhaler RxNorm: 314952 2 Puff(s) INH Q4H as needed 09/02/2017 05/19/2018 Inactive oxycodone 10 mg tablet RxNorm: 3170473 1-2 Tablet(s) PO QID as n eeded for pain 08/17/2017 09/14/2017 Inactive Duragesic 100 mcg/hr transdermal patch RxNorm: 549862 2 Application TD Q48H for pain 08/17/2017 09/14/2017 Inactive fluoxetine 40 mg capsule RxNorm: 917914 Capsule(s) TAKE ONE CAPSULE BY MOUTH EVERY MORNING 08/17/2017 12/14/2017 Inactive Pulmicort 1 mg/2 mL suspension for nebulization RxNorm: 6168 19 1 Unit Dose INH BID Dx: COPD (J44.9) 08/16/2017 08/22/2018 Inactive gabapentin 300 mg capsule RxNorm: 428323 1 Capsule(s) PO QHS 201610/18/2017 Inactive fluoxetine 20 mg capsule RxNorm: 048632 1 Capsule(s) PO QD 08/12/20 17 02/14/2018 Inactive Abilify 2 mg tablet RxNorm: 376793 1 Tablet(s) PO QD TA KE ONE TABLET BY MOUTH DAILY 08/12/2017 10/25/2017 Inactive metformin ER 500 mg tablet,extended release 24 hr RxNorm: 86 0975 1 Tablet(s) PO QD 08/10/2017 02/14/2018 Inactive Synthroid 112 mcg tablet RxNorm: 375042 1 Tablet(s) PO QD 08/10/2017 04/15/2018 Inactive oxycodone 10 mg tablet RxNorm: 3240451 1-2 Tablet(s) PO QID as n eeded for pain 07/19/2017 08/16/2017 Inactive Duragesic 100 mcg/hr transdermal patch RxNorm: 538023 2 Application TD Q48H for pain 07/19/2017 08/16/2017 Inactive Ventolin HFA 90 mcg/actuation aerosol inhaler RxNorm: 704512 2 Puff(s) INH Q4H as needed 07/12/2017 09/02/2017 Inactive Abilify 2 mg tablet RxNorm: 938739 1 Tablet(s) PO QD TA KE ONE TABLET BY MOUTH DAILY 07/06/2017 08/11/2017 Inactive gabapentin 800 mg tablet RxNorm: 328925 1 Tablet(s) PO TID 06/22/20 17 07/05/2017 Inactive Chantix Starting Month Box 0.5 mg (11)-1 mg (42) table ts in dose pack RxNorm: 866886 TAKE BY MOUTH INSTRUCTED - PER PACKAGE INSTRUCTIONS 06/0707/04/2017 Inactive Ventolin HFA 90 mcg/actuation aerosol inhaler RxNorm: 487085 2 Puff(s) INH Q4H as needed 05/26/2017 07/12/2017 Inactive Duragesic 100 mcg/hr transdermal patch RxNorm: 785771 2 Application TD Q48H for pain 05/19/2017 06/17/2017 Inactive oxycodone 10 mg tablet RxNorm: 6901816 1-2 Tablet(s) PO QID as n eeded for pain 05/19/2017 07/18/2017 Inactive Abilify 2 mg tablet RxNorm: 551684 TAKE ONE TABLET BY MOUTH DAILY 0 05/10/2017 07/05/2017 Inactive Synthroid 112 mcg tablet RxNorm: 737055 1 Tablet(s) PO QD 05/06/2017 08/10/2017 Inactive metformin ER 500 mg tablet,extended release 24 hr RxNorm: 86 0975 1 Tablet(s) PO QD 05/06/2017 08/10/2017 Inactive Topamax 100 mg tablet RxNorm: 551623 1 Tablet(s) PO QHS 05/06/2017 Inactive Premarin 0.45 mg tablet RxNorm: 304692 1 Tablet(s) PO QD 05/06/2017 0 04/15/2018 Inactive orphenadrine citrate ER 100 mg tablet,extended release RxNor m: 959012 1 Tablet(s) PO TID for muscle spasm--replaces methocarbamol 04/29/2017 Inactive oxycodone 10 mg tablet RxNorm: 2821064 1-2 Tablet(s) PO QID as n eeded for pain 04/21/2017 05/18/2017 Inactive Duragesic 100 mcg/hr transdermal patch RxNorm: 447477 2 Application TD Q48H for pain 04/21/2017 05/18/2017 Inactive fluoxetine 40 mg capsule RxNorm: 795924 Capsule(s) TAKE ONE CAPSULE BY MOUTH EVERY MORNING 04/20/2017 08/17/2017 Inactive Ventolin HFA 90 mcg/actuation aerosol inhaler RxNorm: 963112 2 Puff(s) INH Q4H as needed 04/05/2017 05/26/2017 Inactive Symbicort 160 mcg-4.5 mcg/actuation HFA aerosol inhaler RxNo rm: [id number] 2 Puff(s) INH BID 03/30/2017 04/15/2018 Inactive Spiriva with HandiHaler 18 mcg and inhalation capsules RxNor m: 652290 1 Capsule(s) INH QD USING HANDIHALER 03/30/2017 02/12/2019 Inactive Duragesic 100 mcg/hr transdermal patch RxNorm: 067451 2 Application TD Q48H for pain 03/18/2017 04/16/2017 Inactive oxycodone 10 mg tablet RxNorm: 0349345 1-2 Tablet(s) PO QID as n eeded for pain 03/18/2017 04/20/2017 Inactive metformin ER 500 mg tablet,extended release 24 hr RxNorm: 86 0975 Tablet(s) TAKE ONE TABLET BY MOUTH DAILY 03/01/2017 05/06/2017 Inactive Premarin 0.45 mg tablet RxNorm: 573452 Tablet(s) TAKE ONE TABLE T BY MOUTH DAILY 03/01/2017 05/06/2017 Inactive Synthroid 112 mcg tablet RxNorm: 503572 Tablet(s) TAKE ONE TABLET BY MOUTH DAILY 03/01/2017 05/06/2017 Inactive Daliresp 500 mcg tablet RxNorm: 3328210 1 Tablet(s) PO QD 03/01/2017 09/06/2017 Inactive 16.2 mg-0.1037 mg-0.0194 mg tablet RxNorm: 7589378 Tablet(s) PO PRN for gas and cramping 02/23/2017 04/28/2017 Inactive TAKE TWO TABLET S BY MOUTH THREE TIMES A DAY NEEDED FOR GAS AND CRAMPING gabapentin 800 mg tablet RxNorm: 203017 1 Tablet(s) PO TID repl aces 600mg 02/23/2017 04/28/2017 Inactive Duragesic 100 mcg/hr transdermal patch RxNorm: 513294 2 Application TD Q48H for pain 02/17/2017 03/17/2017 Inactive fluoxetine 20 mg capsule RxNorm: 449049 1 Capsule(s) PO QD 02/18/20 17 08/12/2017 Inactive oxycodone 20 mg tablet RxNorm: 0828001 1 Tablet(s) PO QID as nee ded for pain 02/17/2017 03/17/2017 Inactive Ventolin HFA 90 mcg/actuation aerosol inhaler RxNorm: 950083 INHALE TWO PUFFS BY MOUTH EVERY 4 HOURS NEEDED 02/15/2017 04/05/2017 Inactive Silvadene 1 % topical cream RxNorm: 658296 1 Application TOP BI D to burn area 02/01/2017 09/22/2017 Inactive Topamax 100 mg tablet RxNorm: 171573 TAKE ONE TABLET BY MOUTH EVERY NIGHT AT BEDTIME 01/29/2017 05/06/2017 Inactive Chantix Starting Month Box 0.5 mg (11)-1 mg (42) table ts in dose pack RxNorm: 699002 Tablet(s) PO as directed 01/29/2017 06/01/2017 Inactive Abilify 2 mg tablet RxNorm: 916717 TAKE ONE TABLET BY MOUTH DAILY 0 01/26/2017 04/25/2017 Inactive Chantix Starting Month Box 0.5 mg (11)-1 mg (42) table ts in dose pack RxNorm: 419850 Tablet(s) PO as directed 01/20/2017 01/28/2017 Inactive gabapentin 600 mg tablet RxNorm: 214137 1 Tablet(s) PO TID 01/21/20 17 02/22/2017 Inactive Chantix Continuing Month Box 1 mg tablet RxNorm: 397263 1 Table t(s) PO BID 12/31/2016 06/01/2017 Inactive Spiriva with HandiHaler 18 mcg and inhalation capsules RxNor m: 900487 INHALE THE ENTIRE CONTENTS OF 1 CAPSULE ONCE A DAY USING HANDIHALER 12/31/201607/2017 Inactive Synthroid 112 mcg tablet RxNorm: 339929 TAKE ONE TABLET BY MOUT H DAILY 12/30/2016 03/01/2017 Inactive metformin ER 500 mg tablet,extended release 24 hr RxNorm: 86 0975 TAKE ONE TABLET BY MOUTH DAILY 12/30/2016 03/01/2017 Inactive Premarin 0.45 mg tablet RxNorm: 848117 TAKE ONE TABLET BY MOUTH DAILY 12/30/2016 03/01/2017 Inactive omeprazole 40 mg capsule,delayed release RxNorm: 377839 TAKE ONE CAPSULE BY MOUTH DAILY 12/30/2016 01/25/2018 Inactive Ventolin HFA 90 mcg/actuation aerosol inhaler RxNorm: 936466 INHALE TWO PUFFS BY MOUTH EVERY 4 HOURS NEEDED 12/28/2016 02/13/2017 Inactive fluoxetine 40 mg capsule RxNorm: 237610 TAKE ONE CAPSULE BY BENOIT TH EVERY MORNING 12/15/2016 04/20/2017 Inactive Chantix Continuing Month Box 1 mg tablet RxNorm: 714424 TAKE ONE TABLET BY MOUTH TWICE A DAY 12/04/2016 12/31/2016 Inactive doxycycline hyclate 100 mg capsule RxNorm: 4614652 1 Capsule(s) PO BID 12/01/2016 12/07/2016 Inactive Levaquin 750 mg tablet RxNorm: 845310 1 Tablet(s) PO QD 12/01/2016 Inactive Abilify 2 mg tablet RxNorm: 224928 TAKE ONE TABLET BY MOUTH DAILY 0 11/25/2016 11/30/2016 Inactive Ventolin HFA 90 mcg/actuation aerosol inhaler RxNorm: 386394 INHALE TWO PUFFS BY MOUTH EVERY 4 HOURS NEEDED 11/02/2016 12/19/2016 Inactive Chantix Continuing Month Box 1 mg tablet RxNorm: 441183 Tablet(s) PO as directed 10/30/2016 12/03/2016 Inactive Symbicort 160 mcg-4.5 mcg/actuation HFA aerosol inhaler RxNo rm: 4740082 INHALE TWO PUFFS TWO TIMES A DAY 10/30/2016 03/30/2017 Inactive Abilify 2 mg tablet RxNorm: 257166 1 Tablet(s) PO QD 10/27/201611/24 Inactive amoxicillin 500 mg capsule RxNorm: 916492 1 Capsule(s) PO TID 10/1410/23/2016 Inactive amoxicillin 500 mg capsule RxNorm: 104593 1 Capsule(s) PO TID 10/1410/13/2016 Inactive Synthroid 112 mcg tablet RxNorm: 985608 TAKE ONE TABLET BY MOUT H DAILY 09/28/2016 12/29/2016 Inactive Topamax 100 mg tablet RxNorm: 100191 TAKE ONE TABLET BY MOUTH EVERY NIGHT AT BEDTIME 09/28/2016 01/28/2017 Inactive Premarin 0.45 mg tablet RxNorm: 220080 TAKE ONE TABLET BY MOUTH DAILY 09/28/2016 12/29/2016 Inactive metformin ER 500 mg tablet,extended release 24 hr RxNorm: 86 0975 TAKE ONE TABLET BY MOUTH DAILY 09/28/2016 12/29/2016 Inactive Ventolin HFA 90 mcg/actuation aerosol inhaler RxNorm: 586173 INHALE TWO PUFFS BY MOUTH EVERY 4 HOURS NEEDED 09/22/2016 10/23/2016 Inactive Pulmicort 1 mg/2 mL suspension for nebulization RxNorm: 6168 19 1 Unit Dose INH BID Dx: COPD (J44.9) 09/10/2016 08/16/2017 Inactive Pulmicort 1 mg/2 mL suspension for nebulization RxNorm: 6168 19 1 Unit Dose INH BID 09/10/2016 09/09/2016 Inactive Brovana 15 mcg/2 mL solution for nebulization RxNorm: 687104 1 Unit Dose INH BID Dx: COPD (J44.9) 09/10/2016 01/25/2018 Inactive Brovana 15 mcg/2 mL solution for nebulization RxNorm: 747027 1 Unit Dose INH BID 09/10/2016 09/09/2016 Inactive ipratropium-albuterol 0.5 mg-3 mg(2.5 mg base)/3 mL ne bulization soln RxNorm: 5693483 1 Unit Dose INH Q4H as needed Dx: COPD (J44.9) 09/10/2016 0 02/12/2019 Inactive orphenadrine citrate ER 100 mg tablet,extended release RxNor m: 089405 1 Tablet(s) PO BID for muscle spasm--replaces methocarbamol 09/09/2016 Inactive Chantix Continuing Month Box 1 mg tablet RxNorm: 488314 Tablet(s) PO as directed 09/09/2016 10/30/2016 Inactive orphenadrine citrate ER 100 mg tablet,extended release RxNor m: 690134 1 Tablet(s) PO BID for muscle spasm 09/09/2016 09/08/2016 Inactive Spiriva with HandiHaler 18 mcg and inhalation capsules RxNor m: 294706 INHALE THE ENTIRE CONTENTS OF 1 CAPSULE ONCE A DAY USING HANDIHALER 09/01/201605/2017 Inactive Daliresp 500 mcg tablet RxNorm: 4511357 1 Tablet(s) PO QD 08/27/2016 03/01/2017 Inactive prednisone 20 mg tablet RxNorm: 226710 3 Tablet(s) PO T ID for 3 days then 1 po BID for 3 days then one daily for 3 days 08/26/2016 04/28/2017 Inactiv e Wellbutrin XL 300 mg 24 hr tablet, extended release RxNorm: 371068 TAKE ONE TABLET BY MOUTH EVERY MORNING 07/29/2016 10/26/2016 Inactive gabapentin 600 mg tablet RxNorm: 244326 1 Tablet(s) PO BID 06/26/20 16 12/22/2016 Inactive fluoxetine 40 mg capsule RxNorm: 014573 TAKE ONE CAPSULE BY BENOIT TH EVERY MORNING 06/24/2016 11/20/2016 Inactive Duragesic 100 mcg/hr transdermal patch RxNorm: 940996 2 Application TD Q48H for pain 06/05/2016 07/04/2016 Inactive oxycodone 10 mg tablet RxNorm: 4143926 1-2 Tablet(s) PO QID as n eeded for pain 06/05/2016 03/17/2017 Inactive Belladonna-Phenobarbital 48 mg tablet,extended release RxNor m: 2 Tablet(s) PO TID 06/05/2016 01/19/2017 Inactive Premarin 0.45 mg tablet RxNorm: 424631 TAKE ONE TABLET BY MOUTH DAILY 05/27/2016 09/23/2016 Inactive Topamax 100 mg tablet RxNorm: 450294 TAKE ONE TABLET BY MOUTH EVERY NIGHT AT BEDTIME 05/27/2016 09/27/2016 Inactive Synthroid 112 mcg tablet RxNorm: 215462 TAKE ONE TABLET BY MOUT H DAILY 05/27/2016 09/23/2016 Inactive metformin ER 500 mg tablet,extended release 24 hr RxNorm: 86 0975 TAKE ONE TABLET BY MOUTH DAILY 05/27/2016 09/23/2016 Inactive Symbicort 160 mcg-4.5 mcg/actuation HFA aerosol inhaler RxNo rm: 0895482 INHALE TWO PUFFS TWO TIMES A DAY 05/27/2016 10/23/2016 Inactive Ventolin HFA 90 mcg/actuation aerosol inhaler RxNorm: 754161 INHALE TWO PUFFS BY MOUTH EVERY 4 HOURS NEEDED 05/21/2016 07/07/2016 Inactive omeprazole 40 mg capsule,delayed release RxNorm: 463166 1 Capsu le(s) PO QD 05/06/2016 08/03/2016 Inactive metformin ER 500 mg tablet,extended release 24 hr RxNorm: 86 0975 TAKE ONE TABLET BY MOUTH DAILY 04/23/2016 05/22/2016 Inactive methocarbamol 750 mg tablet RxNorm: 635057 2 Tablet(s) PO TID as needed for muscle spasm 04/23/2016 09/08/2016 Inactive Synthroid 112 mcg tablet RxNorm: 544013 TAKE ONE TABLET BY MOUT H DAILY 04/23/2016 05/22/2016 Inactive Spiriva with HandiHaler 18 mcg and inhalation capsules RxNor m: 112502 INHALE THE ENTIRE CONTENTS OF 1 CAPSULE ONCE A DAY USING HANDIHALER 04/09/201608/2016 Inactive Diflucan 100 mg tablet RxNorm: 611126 1 Tablet(s) PO QD 04/08/2016 Inactive doxycycline hyclate 100 mg capsule RxNorm: 4411338 1 Capsule(s) PO BID 04/08/2016 04/17/2016 Inactive doxycycline hyclate 100 mg capsule RxNorm: 9326505 1 Capsule(s) PO BID 04/08/2016 04/07/2016 Inactive Diflucan 100 mg tablet RxNorm: 126670 1 Tablet(s) PO QD 04/08/2016 Inactive ondansetron HCl 4 mg tablet RxNorm: 126939 1 Tablet(s) PO Q4H as needed for nausea and vomiting 04/08/2016 09/22/2017 Inactive gabapentin 600 mg tablet RxNorm: 794497 TAKE ONE TABLET BY MOUT H TWICE A DAY 03/24/2016 06/25/2016 Inactive Synthroid 112 mcg tablet RxNorm: 295022 TAKE ONE TABLET BY MOUT H DAILY 02/25/2016 04/22/2016 Inactive Levaquin 500 mg tablet RxNorm: 760003 1 Tablet(s) PO QD 01/23/2016 Inactive prednisone 20 mg tablet RxNorm: 369237 1 Tablet(s) PO T ID for 3 days then 1 po BID for 3 days then one daily for 3 days 01/23/2016 08/25/2016 Inactiv e [employer] Ultra Test strips RxNorm: TEST BLOOD SUGAR ONCE DAILY 250.00 01/09/2016 11/04/2017 Inactive methocarbamol 750 mg tablet RxNorm: 207317 2 Tablet(s) PO TID as needed for muscle spasm 01/09/2016 04/23/2016 Inactive lactulose 10 gram/15 mL oral solution RxNorm: 552940 [address](s) PO QD 01/09/2016 09/22/2017 Inactive TAKE 1 TABLESPOON BY MOUTH ONCE DAILY metformin ER 500 mg tablet,extended release 24 hr RxNorm: 86 0975 1 Tablet(s) PO QD 12/26/2015 04/22/2016 Inactive fluoxetine 20 mg capsule RxNorm: 570248 1 Capsule(s) PO QD 12/23/19 16 06/19/2016 Inactive Premarin 0.45 mg tablet RxNorm: 701170 TAKE ONE TABLET BY MOUTH DAILY 12/23/2015 05/20/2016 Inactive fluoxetine 40 mg capsule RxNorm: 255865 1 Capsule(s) PO QD 12/23/19 16 06/19/2016 Inactive TAKE ONE CAPSULE BY MOUTH EV JANKI MORNING azithromycin 500 mg tablet RxNorm: 561070 1 Tablet(s) PO QD 016 12/19/2015 Inactive Zofran 4 mg tablet RxNorm: 847478 1 Tablet(s) PO Q4H prn nausea /vomiting 12/13/2015 03/30/2018 Inactive azithromycin 500 mg tablet RxNorm: 041321 1 Tablet(s) PO QD 016 12/12/2015 Inactive Duragesic 100 mcg/hr transdermal patch RxNorm: 977239 2 Application TD Q48H for pain 12/09/2015 01/07/2016 Inactive oxycodone 10 mg tablet RxNorm: 5126662 1-2 Tablet(s) PO QID as n eeded for pain 12/09/2015 06/04/2016 Inactive Bactroban 2 % topical cream RxNorm: 794976 Application TOP BID 11/2208/25/2016 Inactive doxycycline hyclate 100 mg capsule RxNorm: 0741852 1 Capsule(s) PO BID 12/03/2015 12/12/2015 Inactive Topamax 100 mg tablet RxNorm: 938362 TAKE ONE TABLET BY MOUTH EVERY NIGHT AT BEDTIME 11/25/2015 05/22/2016 Inactive Symbicort 160 mcg-4.5 mcg/actuation HFA aerosol inhaler RxNo rm: 5471126 INHALE TWO PUFFS TWO TIMES A DAY 11/25/2015 05/22/2016 Inactive Synthroid 112 mcg tablet RxNorm: 201745 Tablet(s) TAKE ONE TABLET BY MOUTH DAILY 11/25/2015 02/22/2016 Inactive omeprazole 40 mg capsule,delayed release RxNorm: 548017 1 Capsu le(s) PO QD 11/12/2015 05/05/2016 Inactive oxycodone 10 mg tablet RxNorm: 8286991 1-2 Tablet(s) PO QID as n eeded for pain 11/05/2015 12/08/2015 Inactive Duragesic 100 mcg/hr transdermal patch RxNorm: 904959 2 Application TD Q48H for pain 11/05/2015 12/04/2015 Inactive omeprazole 40 mg capsule,delayed release RxNorm: 077676 1 Capsu le(s) PO QD 10/07/2015 11/11/2015 Inactive Januvia 100 mg tablet RxNorm: 211969 TAKE ONE TABLET BY MOUTH DAILY 09/11/2015 12/25/2015 Inactive Zithromax 500 mg tablet RxNorm: 674771 1 Tablet(s) PO QD 09/10/2015 1 Inactive prednisone 20 mg tablet RxNorm: 941369 1 Tablet(s) PO T ID for 3 days then 1 po BID for 3 days then one daily for 3 days 09/10/2015 08/25/2016 Inactiv e Wellbutrin XL 300 mg 24 hr tablet, extended release RxNorm: 790082 1 Tablet(s) PO QAM 09/10/2015 12/02/2015 Inactive Topamax 100 mg tablet RxNorm: 249639 TAKE ONE TABLET BY MOUTH EVERY NIGHT AT BEDTIME 09/02/2015 11/24/2015 Inactive Synthroid 112 mcg tablet RxNorm: 739716 TAKE ONE TABLET BY MOUT H DAILY 09/02/2015 11/25/2015 Inactive methocarbamol 750 mg tablet RxNorm: 076859 2 Tablet(s) PO TID as needed for muscle spasm 08/15/2015 01/09/2016 Inactive Wellbutrin XL 150 mg 24 hr tablet, extended release RxNorm: 463698 TAKE ONE TABLET BY MOUTH EVERY MORNING 08/13/2015 08/13/2015 Inactive gabapentin 600 mg tablet RxNorm: 170484 1 Tablet(s) PO BID 08/13/20 15 02/08/2016 Inactive Wellbutrin XL 300 mg 24 hr tablet, extended release RxNorm: 225876 1 Tablet(s) PO QAM 08/06/2015 09/09/2015 Inactive Wellbutrin XL 150 mg 24 hr tablet, extended release RxNorm: 227450 1 Tablet(s) PO QAM 07/18/2015 08/05/2015 Inactive prednisone 20 mg tablet RxNorm: 479376 1 Tablet(s) PO BID 07/18/2015 07/22/2015 Inactive doxycycline hyclate 100 mg tablet,delayed release RxNorm: 43 4018 1 Tablet(s) PO BID 07/18/2015 07/27/2015 Inactive pravastatin 40 mg tablet RxNorm: 716585 1 Tablet(s) PO QD NEEDS FASTING LAB 07/15/2015 07/14/2015 Inactive pravastatin 40 mg tablet RxNorm: 340256 1 Tablet(s) PO QD NEEDS FASTING LAB 07/15/2015 01/25/2018 Inactive Ventolin HFA 90 mcg/actuation aerosol inhaler RxNorm: 474822 2 Puff(s) INH Q4H 07/08/2015 07/07/2015 Inactive prn Premarin 0.45 mg tablet RxNorm: 493097 1 Tablet(s) PO QD 07/01/2015 0 12/22/2015 Inactive pravastatin 40 mg tablet RxNorm: 525327 1 Tablet(s) PO QD NEEDS FASTING LAB 06/14/2015 07/15/2015 Inactive Ventolin HFA 90 mcg/actuation aerosol inhaler RxNorm: 5159961 2 Puff(s) INH Q4H 06/06/2015 07/08/2015 Inactive prn albuterol sulfate 2.5 mg/3 mL (0.083 %) solution for n ebulization RxNorm: 656533 1 Unit Dose INH QID 05/30/2015 No Stop Date Active Duragesic 100 mcg/hr transdermal patch RxNorm: 654337 2 Application TD Q48H for pain 04/29/2015 05/28/2015 Inactive gabapentin 600 mg tablet RxNorm: 207872 1 Tablet(s) PO BID 04/11/20 15 08/13/2015 Inactive Onglyza 5 mg tablet RxNorm: 864849 1 Tablet(s) PO QD for blood suga r 04/10/2015 04/15/2015 Inactive [Brand Copay Card: RxBIN:[id number] PCN:CRISTIANA RxGRP:[id number] ID#:[id number]] methocarbamol 750 mg tablet RxNorm: 739319 2 Tablet(s) PO TID as needed for muscle spasm 03/28/2015 08/15/2015 Inactive pravastatin 40 mg tablet RxNorm: 998424 1 Tablet(s) PO QD 03/19/2015 03/18/2015 Inactive pravastatin 40 mg tablet RxNorm: 405248 1 Tablet(s) PO QD 03/19/2015 06/14/2015 Inactive lactulose 10 gram/15 mL oral solution RxNorm: 132049 [address]s) PO QD 03/07/2015 01/09/2016 Inactive TAKE 1 TABLESPOON BY MOUTH ONCE DAILY oxycodone 20 mg tablet RxNorm: 4512148 1 Tablet(s) PO QID as nee ded for pain 03/05/2015 07/08/2015 Inactive Topamax 100 mg tablet RxNorm: 631258 1 Tablet(s) PO QHS TAKE ONE TABLET BY MOUTH AT BEDTIME 02/25/2015 02/12/2019 Inactive metformin ER 500 mg tablet,extended release 24 hr RxNorm: 86 0975 1 Tablet(s) PO QD 02/11/2015 03/04/2015 Inactive take one tablet by mouth every day Daliresp 500 mcg tablet RxNorm: 6367132 1 Tablet(s) PO QD 02/11/2015 08/09/2015 Inactive Endocet 10 mg-325 mg tablet RxNorm: 2329374 1 Tablet(s) PO Q4H as needed for pain 01/23/2015 01/23/2015 Inactive gabapentin 600 mg tablet RxNorm: 495118 1 Tablet(s) PO BID 01/23/20 15 04/11/2015 Inactive methocarbamol 750 mg tablet RxNorm: 881741 2 Tablet(s) PO TID as needed for muscle spasm 01/15/2015 02/13/2015 Inactive fluoxetine 40 mg capsule RxNorm: 708304 1 Capsule(s) PO QD 01/14/20 15 12/23/2015 Inactive TAKE ONE CAPSULE BY MOUTH EV JANKI MORNING fluoxetine 20 mg capsule RxNorm: 945285 1 Capsule(s) PO QD 01/14/20 15 12/23/2015 Inactive Premarin 0.45 mg tablet RxNorm: 348075 1 Tablet(s) PO QD 01/02/2015 0 07/01/2015 Inactive Endocet 10 mg-325 mg tablet RxNorm: 3528499 1-2 Tablet(s) PO Q4H 02/12/2019 Inactive PRN PAIN Duragesic 100 mcg/hr transdermal patch RxNorm: 524996 2 Application TD Q48H for pain 12/25/2014 01/23/2015 Inactive Topamax 100 mg tablet RxNorm: 152844 1 Tablet(s) PO QHS TAKE ONE TABLET BY MOUTH AT BEDTIME 12/25/2014 02/24/2015 Inactive Tudorza Pressair 400 mcg/actuation breath activated RxNorm: 0255745 1 BID INHALE ONE PUFF INTO LUNGS TWO TIMES A DAY 12/17/2014 05/15/2015 Inactive Endocet 10 mg-325 mg tablet RxNorm: 4130598 1-2 Tablet(s) PO Q4H 12/19/2014 Inactive PRN PAIN Duragesic 100 mcg/hr transdermal patch RxNorm: 559793 2 Application TD Q48H for pain 11/20/2014 12/24/2014 Inactive [employer] Ultra Test strips RxNorm: TEST BLOOD SUGAR ONCE DAILY 250.00 11/16/2014 01/08/2016 Inactive omeprazole 40 mg capsule,delayed release RxNorm: 731908 1 Capsu le(s) PO QD 11/13/2014 11/12/2015 Inactive metformin ER 500 mg tablet,extended release 24 hr RxNorm: 86 0975 1 Tablet(s) PO QD 11/12/2014 02/11/2015 Inactive take one tablet by mouth every day Symbicort 160 mcg-4.5 mcg/actuation HFA aerosol inhaler RxNo rm: 8835250 2 Puff(s) INH BID 11/12/2014 03/11/2015 Inactive INHALE 2 PUFFS O RALLY TWO TIMES A DAY gabapentin 800 mg tablet RxNorm: 837651 1 Tablet(s) PO QD TAKE ONE TABLET BY MOUTH ONCE A DAY 10/22/2014 01/01/2015 Inactive Endocet 10 mg-325 mg tablet RxNorm: 9599839 1-2 Tablet(s) PO Q4H 11/15/2014 Inactive PRN PAIN Duragesic 100 mcg/hr transdermal patch RxNorm: 830080 2 Application TD Q48H for pain 10/17/2014 11/19/2014 Inactive gabapentin 800 mg tablet RxNorm: 750554 1 Tablet(s) PO QD TAKE ONE TABLET BY MOUTH ONCE A DAY 10/04/2014 10/21/2014 Inactive Premarin 0.9 mg tablet RxNorm: 743641 1 Tablet(s) PO QD TAKE ONE TABLET BY MOUTH ONCE A DAY 10/04/2014 01/01/2015 Inactive Spiriva with HandiHaler 18 mcg & inhalation capsules RxNorm: 200388 1 Capsule(s) INH QD 10/03/2014 04/30/2015 Inactive Levaquin 500 mg tablet RxNorm: 121115 1 Tablet(s) PO QD 10/03/2014 Inactive prednisone 20 mg tablet RxNorm: 329415 1 Tablet(s) PO QD 10/03/2014 1 12/09/2013 Inactive Duragesic 100 mcg/hr transdermal patch RxNorm: 761435 2 Application TD Q48H for pain 09/18/2014 10/16/2014 Inactive Endocet 10 mg-325 mg tablet RxNorm: 2061903 1-2 Tablet(s) PO Q4H 10/16/2014 Inactive PRN PAIN Synthroid 112 mcg tablet RxNorm: 521047 1 Tablet(s) QD 09/10/2014 Inactive Synthroid 112 mcg tablet RxNorm: 574504 TAKE ONE TABLET BY MOUTH ONE TIME A DAY. NEEDS LABS 09/10/2014 02/06/2015 Inactive omeprazole 40 mg capsule,delayed release RxNorm: 372836 1 Capsu le(s) PO QD 09/03/2014 11/13/2014 Inactive omeprazole 40 mg capsule,delayed release RxNorm: 437396 1 Capsu le(s) PO QD 09/03/2014 09/02/2014 Inactive Spiriva with HandiHaler 18 mcg & inhalation capsules RxNorm: 269234 1 Capsule(s) INH QD 08/27/2014 10/02/2014 Inactive gabapentin 600 mg tablet RxNorm: 476262 1 Tablet(s) PO BID 08/27/20 14 10/22/2014 Inactive Endocet 10 mg-325 mg tablet RxNorm: 1736642 1-2 Tablet(s) PO Q4H 09/17/2014 Inactive PRN PAIN fentanyl 100 mcg/hr transdermal patch RxNorm: 671719 1 Unit Dos e TD QD 08/21/2014 09/19/2014 Inactive Daliresp 500 mcg tablet RxNorm: 9094780 1 Tablet(s) PO QD 08/13/2014 02/11/2015 Inactive Synthroid 112 mcg tablet RxNorm: 516912 TAKE ONE TABLET BY MOUTH ONE TIME A DAY. NEEDS LABS 08/10/2014 09/10/2014 Inactive Endocet 10 mg-325 mg tablet RxNorm: 4781485 1-2 Tablet(s) PO Q4H 08/17/2014 Inactive PRN PAIN Duragesic 100 mcg/hr transdermal patch RxNorm: 941386 2 Application TD Q48H for pain 07/19/2014 09/17/2014 Inactive fluoxetine 40 mg capsule RxNorm: 392524 1 Capsule(s) PO QD 07/17/20 14 01/14/2015 Inactive TAKE ONE CAPSULE BY MOUTH EV JANKI MORNING fluoxetine 20 mg capsule RxNorm: 463571 1 Capsule(s) PO QD 07/17/20 14 01/14/2015 Inactive Spiriva with HandiHaler 18 mcg & inhalation capsules RxNorm: 086373 1 Capsule(s) INH QD 07/17/2014 08/26/2014 Inactive INHALE CONTENTS OF 1 CAPSULE(S) WITH HANDIHALER ONCE DAILY Zofran 4 mg tablet RxNorm: 988936 1 Tablet(s) PO Q4H prn nausea 07/25/2014 Inactive Synthroid 112 mcg tablet RxNorm: 462540 1 Tablet(s) PO QD 07/09/2014 07/09/2014 Inactive methocarbamol 750 mg tablet RxNorm: 578357 2 Tablet(s) PO TID as needed for muscle spasm 07/09/2014 09/06/2014 Inactive Synthroid 112 mcg tablet RxNorm: 579331 1 Tablet(s) PO QD - nee d labs 07/09/2014 08/07/2014 Inactive Medrol (Aníbal) 4 mg tablets in a dose pack RxNorm: 334302 6 Tablet(s) PO QD --then as directed 07/03/2014 07/08/2014 Inactive Tudorza Pressair 400 mcg/actuation breath activated RxNorm: 3269237 1 Puff(s) INH BID 07/03/2014 12/17/2014 Inactive cefdinir 300 mg capsule RxNorm: 056815 1 Capsule(s) PO BID 07/03/20 14 07/12/2014 Inactive Topamax 100 mg tablet RxNorm: 746780 Tablet(s) TAKE ONE TABLET BY MOUTH AT BEDTIME 07/02/2014 02/25/2015 Inactive Duragesic 100 mcg/hr transdermal patch RxNorm: 305182 2 Application TD Q48H for pain 06/25/2014 07/18/2014 Inactive Endocet 10 mg-325 mg tablet RxNorm: 5419512 1-2 Tablet(s) PO Q4H 07/18/2014 Inactive PRN PAIN metformin ER 500 mg tablet,extended release 24 hr RxNorm: 86 0975 1 Tablet(s) PO QD Needs labs 06/18/2014 07/01/2014 Inactive take one tablet by mouth every day Duragesic 100 mcg/hr transdermal patch RxNorm: 086891 2 Application TD Q48H for pain 05/22/2014 06/24/2014 Inactive Synthroid 112 mcg tablet RxNorm: 227378 1 Tablet(s) PO QD 05/22/2014 07/09/2014 Inactive Endocet 10 mg-325 mg tablet RxNorm: 8026679 1-2 Tablet(s) PO Q4H 06/20/2014 Inactive PRN PAIN Endocet 10 mg-325 mg tablet RxNorm: 0096363 1-2 Tablet(s) PO Q4H 05/21/2014 Inactive PRN PAIN Duragesic 100 mcg/hr transdermal patch RxNorm: 552221 2 Application TD Q48H for pain 04/25/2014 05/21/2014 Inactive Daliresp 500 mcg tablet RxNorm: 4331816 1 Tablet(s) PO QD 04/24/2014 08/13/2014 Inactive Symbicort 160 mcg-4.5 mcg/actuation HFA aerosol inhaler RxNo rm: 5181245 2 Puff(s) INH BID 04/24/2014 08/21/2014 Inactive INHALE 2 PUFFS O RALLY TWO TIMES A DAY metformin ER 500 mg tablet,extended release 24 hr RxNorm: 86 0975 1 Tablet(s) PO QD 04/24/2014 11/12/2014 Inactive TAKE ONE TABLET BY MOUTH EVERY DAY [AttnRPh:Saving Apply/Adjudicate RxGRP:LDMGRP RxBIN:[id number] RxPCN:2012 PCode: ID#:[id number]] Symbicort 160 mcg-4.5 mcg/actuation HFA aerosol inhaler RxNo rm: 0385396 2 Puff(s) INH BID 04/24/2014 11/12/2014 Inactive INHALE 2 PUFFS O RALLY TWO TIMES A DAY Premarin 0.9 mg tablet RxNorm: 032891 1 Tablet(s) PO QD 04/24/2014 Inactive TAKE ONE TABLET BY MOUTH EVERY DAY metformin ER 500 mg tablet,extended release 24 hr RxNorm: 86 0975 1 Tablet(s) PO QD Needs labs 04/24/2014 06/18/2014 Inactive TAKE ONE TABLET BY MOUTH EVERY DAY [AttnRPh:Saving Apply/Adjudicate RxGRP:LDMGRP RxBIN:[id number] RxPCN:2012 PCode:01 ID#:[id number]] gabapentin 800 mg tablet RxNorm: 329177 1 Tablet(s) PO QD 04/24/2014 10/04/2014 Inactive TAKE ONE TABLET BY MOUTH EVERY DAY Topamax 100 mg tablet RxNorm: 701735 1 Tablet(s) PO QHS 04/17/2014 Inactive Topamax 100 mg tablet RxNorm: 995043 TAKE ONE TABLET BY MOUTH A T BEDTIME 04/17/2014 07/01/2014 Inactive Tudorza Pressair 400 mcg/actuation breath activated RxNorm: 6653303 1 Puff(s) INH BID 04/11/2014 07/02/2014 Inactive Duragesic 100 mcg/hr transdermal patch RxNorm: 754611 2 Application TD Q48H for pain 03/27/2014 04/24/2014 Inactive Endocet 10 mg-325 mg tablet RxNorm: 7908030 1-2 Tablet(s) PO Q4H 04/24/2014 Inactive PRN PAIN Robaxin 750 mg tablet RxNorm: 802790 2 Tablet(s) PO TID as need ed for spasm 02/23/2014 03/28/2015 Inactive Duragesic 100 mcg/hr transdermal patch RxNorm: 928396 2 Application TD Q48H for pain 02/23/2014 No Stop Date Active Endocet 10 mg-325 mg tablet RxNorm: 0070139 1-2 Tablet(s) PO Q4H 03/23/2014 Inactive PRN PAIN Synthroid 112 mcg tablet RxNorm: 076613 1 Tablet(s) PO QD TAKE ONE TABLET BY MOUTH EVERY DAY 02/15/2014 05/22/2014 Inactive Zithromax 500 mg tablet RxNorm: 517033 1 Tablet(s) PO QD 01/30/2014 0 02/05/2014 Inactive Diflucan 100 mg tablet RxNorm: 919909 1 Tablet(s) PO QD 01/30/2014 Inactive prednisone 20 mg tablet RxNorm: 545139 1 Tablet(s) PO BID 01/30/2014 02/05/2014 Inactive fluoxetine 40 mg capsule RxNorm: 272420 1 Capsule(s) PO QD 01/23/20 14 07/16/2014 Inactive TAKE ONE CAPSULE BY MOUTH EV JANKI MORNING fluoxetine 40 mg capsule RxNorm: 958299 1 Capsule(s) PO QD 01/23/20 14 07/17/2014 Inactive TAKE ONE CAPSULE BY MOUTH EV JANKI MORNING cefdinir 300 mg capsule RxNorm: 786765 1 Capsule(s) PO BID 01/16/20 14 01/29/2014 Inactive Zithromax 500 mg tablet RxNorm: 005959 1 Tablet(s) PO QD 01/16/2014 0 01/22/2014 Inactive prednisone 20 mg tablet RxNorm: 094830 1 Tablet(s) PO BID 01/16/2014 01/22/2014 Inactive Spiriva with HandiHaler 18 mcg and inhalation capsules RxNor m: 852720 1 Capsule(s) INH QD 12/18/2013 07/17/2014 Inactive INHALE CONTENT S OF 1 CAPSULE(S) WITH HANDIHALER ONCE DAILY fluoxetine 20 mg capsule RxNorm: 977923 1 Capsule(s) PO QD 12/18/19 14 06/15/2014 Inactive Spiriva with HandiHaler 18 mcg & inhalation capsules RxNorm: 975610 1 Capsule(s) INH QD 12/18/2013 06/15/2014 Inactive INHALE CONTENTS OF 1 CAPSULE(S) WITH HANDIHALER ONCE DAILY fluoxetine 20 mg capsule RxNorm: 518335 1 Capsule(s) PO QD 12/18/19 14 07/17/2014 Inactive cefdinir 300 mg capsule RxNorm: 233828 2 Capsule(s) PO QD 12/12/2013 12/21/2013 Inactive Duragesic 100 mcg/hr transdermal patch RxNorm: 126153 2 Application TD Q48H for pain 12/08/2013 12/07/2013 Inactive Topamax 100 mg tablet RxNorm: 621794 1 Tablet(s) PO QHS 12/04/2013 Inactive Endocet 10 mg-325 mg tablet RxNorm: 2249018 1-2 Tablet(s) PO Q4H 12/26/2013 Inactive PRN PAIN Robaxin 750 mg tablet RxNorm: 790619 2 Tablet(s) PO TID as need ed for spasm 11/07/2013 01/05/2014 Inactive gabapentin 800 mg tablet RxNorm: 959952 1 Tablet(s) PO QD 10/16/2013 04/24/2014 Inactive TAKE ONE TABLET BY MOUTH EVERY DAY Symbicort 160 mcg-4.5 mcg/actuation HFA aerosol inhaler RxNo rm: 7995551 2 Puff(s) INH BID 10/16/2013 04/24/2014 Inactive INHALE 2 PUFFS O RALLY TWO TIMES A DAY Premarin 0.9 mg tablet RxNorm: 422134 1 Tablet(s) PO QD 10/16/2013 Inactive TAKE ONE TABLET BY MOUTH EVERY DAY metformin ER 500 mg tablet,extended release 24 hr RxNorm: 86 0975 1 Tablet(s) PO QD 10/16/2013 04/24/2014 Inactive TAKE ONE TABLET BY MOUTH EVERY DAY Daliresp 500 mcg tablet RxNorm: 4205539 1 Tablet(s) PO QD 10/16/2013 04/24/2014 Inactive Robaxin 750 mg tablet RxNorm: 647416 2 Tablet(s) PO TID as need ed for spasm 10/10/2013 11/06/2013 Inactive Duragesic 100 mcg/hr transdermal patch RxNorm: 141194 2 Application TD Q48H for pain 10/09/2013 No Stop Date Active Soma 350 mg tablet RxNorm: 852835 1 Tablet(s) PO TID 09/27/201310/09 Inactive TAKE ONE TABLET BY MOUTH THREE TIMES A D AY lactulose 10 gram/15 mL oral solution RxNorm: 976370 [address](s) PO QD 09/13/2013 03/07/2015 Inactive TAKE 1 TABLESPOON BY MOUTH ONCE DAILY Duragesic 100 mcg/hr transdermal patch RxNorm: 043121 2 Application TD Q48H for pain 09/06/2013 No Stop Date Active Endocet 10 mg-325 mg tablet RxNorm: 5202238 1-2 Tablet(s) PO Q4H 09/27/2013 Inactive PRN PAIN lancets 28 gauge RxNorm: Miscellaneous As needed for blo od glucose sticks 08/24/2013 No Stop Date Active 16.2 mg-0.1037 mg-0.0194 mg tablet RxNorm: 1904939 Tablet(s) PO PRN for gas and cramping 08/24/2013 01/19/2017 Inactive TAKE TWO TABLET S BY MOUTH THREE TIMES A DAY NEEDED FOR GAS AND CRAMPING Topamax 100 mg tablet RxNorm: 334123 1 Tablet(s) PO QHS 07/31/2013 Inactive Diflucan 100 mg tablet RxNorm: 998526 1 Tablet(s) PO QD 07/27/2013 Inactive cefdinir 300 mg capsule RxNorm: 584335 1 Capsule(s) PO BID 07/26/20 13 08/08/2013 Inactive Daliresp 500 mcg tablet RxNorm: 8052878 1 Tablet(s) PO QD 07/25/2013 10/15/2013 Inactive fluoxetine 40 mg capsule RxNorm: 285722 1 Capsule(s) PO QD 07/25/20 13 01/22/2014 Inactive TAKE ONE CAPSULE BY MOUTH EV JANKI MORNING Senokot-S 8.6 mg-50 mg tablet RxNorm: 6971289 1 Tablet(s) PO BID 10/25/2013 Inactive doxycycline hyclate 100 mg capsule RxNorm: 3896338 1 Capsule(s) PO BID 06/28/2013 07/07/2013 Inactive prednisone 20 mg tablet RxNorm: 495742 1 Tablet(s) PO BID 06/28/2013 07/04/2013 Inactive Zofran 4 mg tablet RxNorm: 099688 1 Tablet(s) PO Q4H prn nausea 03/201307/05/2013 Inactive Spiriva with HandiHaler 18 mcg & inhalation capsules RxNorm: 566215 1 Capsule(s) INH QD 06/26/2013 12/18/2013 Inactive INHALE CONTENTS OF 1 CAPSULE(S) WITH HANDIHALER ONCE DAILY Synthroid 112 mcg tablet RxNorm: 652186 1 Tablet(s) PO QD TAKE ONE TABLET BY MOUTH EVERY DAY 06/19/2013 02/15/2014 Inactive fluoxetine 20 mg capsule RxNorm: 512190 1 Capsule(s) PO QD 06/19/20 13 12/18/2013 Inactive Ventolin HFA 90 mcg/actuation Aerosol Inhaler RxNorm: 1286361 2 Puff(s) INH Q4H 06/05/2013 No Stop Date Active prn Soma 350 mg tablet RxNorm: 292102 1 Tablet(s) PO TID 06/05/201307/04 Inactive TAKE ONE TABLET BY MOUTH THREE TIMES A D AY prednisone 20 mg tablet RxNorm: 556731 1 Tablet(s) PO QD 05/31/2013 0 06/06/2013 Inactive Topamax 100 mg tablet RxNorm: 542481 1 Tablet(s) PO QHS 05/22/2013 Inactive Levaquin 500 mg tablet RxNorm: 296315 1 Tablet(s) PO QD 05/03/2013 Inactive Diflucan 100 mg tablet RxNorm: 636441 1 Tablet(s) PO QD 05/03/2013 Inactive Daliresp 500 mcg tablet RxNorm: 5905637 1 Tablet(s) PO QD 05/01/2013 07/24/2013 Inactive Daliresp 500 mcg tablet RxNorm: 9866021 1 Tablet(s) PO QD 05/01/2013 04/30/2013 Inactive gabapentin 800 mg tablet RxNorm: 723374 1 Tablet(s) PO QD 04/10/2013 10/06/2013 Inactive TAKE ONE TABLET BY MOUTH EVERY DAY metformin ER 500 mg tablet,extended release 24 hr RxNorm: 86 0977 1 Tablet(s) PO QD 04/10/2013 10/06/2013 Inactive TAKE ONE TABLET BY MOUTH EVERY DAY Premarin 0.9 mg tablet RxNorm: 476588 1 Tablet(s) PO QD 04/10/2013 Inactive TAKE ONE TABLET BY MOUTH EVERY DAY Symbicort 160 mcg-4.5 mcg/actuation HFA aerosol inhaler RxNo rm: 6840943 2 Puff(s) INH BID 04/10/2013 10/06/2013 Inactive INHALE 2 PUFFS O RALLY TWO TIMES A DAY Synthroid 112 mcg tablet RxNorm: 147352 1 Tablet(s) PO QD TAKE ONE TABLET BY MOUTH EVERY DAY 04/10/2013 06/18/2013 Inactive Ventolin HFA 90 mcg/actuation Aerosol Inhaler RxNorm: 0940437 2 Puff(s) INH Q4H 04/10/2013 No Stop Date Active prn fentanyl 100 mcg/hr transdermal patch RxNorm: 201824 1 Unit Dos e TD QD 04/03/2013 05/02/2013 Inactive Endocet 10 mg-325 mg tablet RxNorm: 1286362 1-2 Tablet(s) PO Q4H 05/02/2013 Inactive PRN PAIN Topamax 100 mg tablet RxNorm: 721068 1 Tablet(s) PO QHS 03/13/2013 Inactive Reglan 10 mg tablet RxNorm: 105902 1 Tablet(s) PO QID b efore meals and at bedtime 03/13/2013 04/09/2015 Inactive fluoxetine 20 mg capsule RxNorm: 675976 1 Capsule(s) PO QD 02/28/20 13 05/27/2013 Inactive Ventolin HFA 90 mcg/actuation Aerosol Inhaler RxNorm: 2551812 2 Puff(s) INH Q4H 02/13/2013 No Stop Date Active prn fluoxetine 40 mg capsule RxNorm: 977893 1 Capsule(s) PO QD 01/31/20 13 07/24/2013 Inactive TAKE ONE CAPSULE BY MOUTH EV JANKI MORNING Soma 350 mg tablet RxNorm: 095512 1 Tablet(s) PO TID 01/20/201302/18 Inactive TAKE ONE TABLET BY MOUTH THREE TIMES A D AY Endocet 10 mg-325 mg tablet RxNorm: 7129533 1-2 Tablet(s) PO Q4H 02/06/2013 Inactive PRN PAIN MS Contin 200 mg tablet,extended release RxNorm: 517339 1 Table t(s) PO BID 01/18/2013 02/06/2013 Inactive Ventolin HFA 90 mcg/actuation Aerosol Inhaler RxNorm: 4497852 2 Puff(s) INH Q4H 01/04/2013 No Stop Date Active prn Spiriva with HandiHaler 18 mcg & inhalation capsules RxNorm: 889910 1 Capsule(s) INH QD 12/29/2012 06/25/2013 Inactive INHALE CONTENTS OF 1 CAPSULE(S) WITH HANDIHALER ONCE DAILY Spiriva with HandiHaler 18 mcg & inhalation capsules RxNorm: 755925 1 Capsule(s) INH QD 12/26/2012 12/28/2012 Inactive INHALE CONTENTS OF 1 CAPSULE(S) WITH HANDIHALER ONCE DAILY Synthroid 112 mcg tablet RxNorm: 953264 Tablet(s) PO TA KE ONE TABLET BY MOUTH EVERY DAY 12/26/2012 04/09/2013 Inactive Endocet 10 mg-325 mg tablet RxNorm: 2247855 1-2 Tablet(s) PO Q4H 01/17/2013 Inactive PRN PAIN MS Contin 200 mg tablet,extended release RxNorm: 128899 1 Table t(s) PO BID 12/21/2012 01/17/2013 Inactive fluoxetine 20 mg capsule RxNorm: 035476 1 Capsule(s) PO QD 12/06/19 13 02/26/2013 Inactive Synthroid 112 mcg tablet RxNorm: 162818 1 Tablet(s) PO QD 12/06/2012 02/12/2019 Inactive TAKE ONE TABLET BY MOUTH EVERY DAY Ventolin HFA 90 mcg/actuation Aerosol Inhaler RxNorm: 9872181 2 Puff(s) INH Q4H 12/06/2012 No Stop Date Active prn Reglan 10 mg tablet RxNorm: 201387 1 Tablet(s) PO QID b efore meals and at bedtime 11/24/2012 03/12/2013 Inactive Topamax 100 mg tablet RxNorm: 169596 1 Tablet(s) PO QHS 11/16/2012 Inactive Ventolin HFA 90 mcg/actuation Aerosol Inhaler RxNorm: 6644109 2 Puff(s) INH Q4H 11/09/2012 No Stop Date Active prn gabapentin 800 mg tablet RxNorm: 723600 1 Tablet(s) PO QD 10/27/2012 04/09/2013 Inactive TAKE ONE TABLET BY MOUTH EVERY DAY metformin ER 500 mg tablet,extended release 24 hr RxNorm: 86 0977 1 Tablet(s) PO QD 10/27/2012 04/09/2013 Inactive TAKE ONE TABLET BY MOUTH EVERY DAY Symbicort 160 mcg-4.5 mcg/actuation HFA Aerosol Inhaler RxNo rm: 3872903 2 Puff(s) INH BID 10/27/2012 04/09/2013 Inactive INHALE 2 PUFFS O RALLY TWO TIMES A DAY Premarin 0.9 mg tablet RxNorm: 413896 1 Tablet(s) PO QD 10/27/2012 Inactive TAKE ONE TABLET BY MOUTH EVERY DAY Endocet 10 mg-325 mg tablet RxNorm: 4793340 1-2 Tablet(s) PO Q4H 11/24/2012 Inactive PRN PAIN MS Contin 200 mg tablet,extended release RxNorm: 884719 1 Table t(s) PO BID 10/26/2012 11/24/2012 Inactive Soma 350 mg tablet RxNorm: 005158 1 Tablet(s) PO TID 10/04/201211/02 Inactive TAKE ONE TABLET BY MOUTH THREE TIMES A D AY Ventolin HFA 90 mcg/actuation Aerosol Inhaler RxNorm: 2026981 2 Puff(s) INH Q4H 10/03/2012 No Stop Date Active prn Daliresp 500 mcg tablet RxNorm: 5724903 1 Tablet(s) PO QD 09/28/2012 09/27/2012 Inactive Daliresp 500 mcg tablet RxNorm: 9686586 1 Tablet(s) PO QD 09/28/2012 04/25/2013 Inactive fluoxetine 20 mg capsule RxNorm: 294199 1 Capsule(s) PO QD 09/05/2012/06/2012 Inactive Topamax 50 mg tablet RxNorm: 454714 Tablet(s) PO for 1w k then 1 po q HS for 1wk then 2 po q HS 08/29/2012 09/27/2012 Inactive TAKE 1/2 TABLET BY MOUTH AT BEDTIME FOR 1 WEEK, THEN 1 TABLET AT BEDTIME FOR 1 WEEK, THEN 2 TABLETS AT BEDTIME Topamax 100 mg tablet RxNorm: 584306 1 Tablet(s) PO QHS 08/29/2012 Inactive Ventolin HFA 90 mcg/actuation Aerosol Inhaler RxNorm: 9836688 2 Puff(s) INH Q4H 08/19/2012 No Stop Date Active prn Ventolin HFA 90 mcg/actuation Aerosol Inhaler RxNorm: 5906189 2 Puff(s) INH Q4H 08/15/2012 No Stop Date Active prn Synthroid 112 mcg tablet RxNorm: 417277 1 Tablet(s) PO QD 08/10/2012 11/07/2012 Inactive TAKE ONE TABLET BY MOUTH EVERY DAY Synthroid 112 mcg tablet RxNorm: 595957 1 Tablet(s) PO QD 08/01/2012 08/09/2012 Inactive TAKE ONE TABLET BY MOUTH EVERY DAY Reglan 10 mg tablet RxNorm: 764981 1 Tablet(s) PO QID b efore meals and at bedtime 08/01/2012 11/23/2012 Inactive fluoxetine 40 mg capsule RxNorm: 810456 1 Capsule(s) PO QD 08/01/2001/27/2013 Inactive TAKE ONE CAPSULE BY MOUTH EV JANKI MORNING Ventolin HFA 90 mcg/actuation Aerosol Inhaler RxNorm: 9065744 2 Puff(s) INH Q4H 08/01/2012 No Stop Date Active prn Soma 350 mg tablet RxNorm: 101520 1 Tablet(s) PO TID 07/20/201208/18 Inactive TAKE ONE TABLET BY MOUTH THREE TIMES A D AY Spiriva with HandiHaler 18 mcg & inhalation capsules RxNorm: 034349 1 Capsule(s) INH 07/01/2012 12/25/2012 Inactive INHALE CONTENTS OF 1 CAPSULE(S) WITH HANDIHALER ONCE DAILY Zithromax 250 mg Tab RxNorm: 953992 2 Tablet(s) PO QD 06/28/201206/22 Inactive MS Contin 200 mg tablet,extended release RxNorm: 430361 1 Table t(s) PO BID 06/28/2012 07/27/2012 Inactive Endocet 10 mg-325 mg tablet RxNorm: 1831357 1-2 Tablet(s) PO Q4H 07/27/2012 Inactive PRN PAIN Topamax 100 mg tablet RxNorm: 755566 1 Tablet(s) PO QHS 06/28/2012 Inactive 16.2 mg-0.1037 mg-0.0194 mg tablet RxNorm: 3149709 Tablet(s) PO PRN for gas and cramping 06/08/2012 08/23/2013 Inactive TAKE TWO TABLET S BY MOUTH THREE TIMES A DAY NEEDED FOR GAS AND CRAMPING Ventolin HFA 90 mcg/actuation Aerosol Inhaler RxNorm: 0970240 2 Puff(s) INH Q4H 05/23/2012 No Stop Date Active prn Ventolin HFA 90 mcg/actuation Aerosol Inhaler RxNorm: 2179022 2 Puff(s) INH Q4H 05/11/2012 No Stop Date Active prn Synthroid 112 mcg tablet RxNorm: 879086 1 Tablet(s) PO QD 05/09/2012 07/31/2012 Inactive TAKE ONE TABLET BY MOUTH EVERY DAY gabapentin 800 mg tablet RxNorm: 723568 1 Tablet(s) PO QD 05/09/2012 10/26/2012 Inactive TAKE ONE TABLET BY MOUTH EVERY DAY fluoxetine 40 mg capsule RxNorm: 759660 1 Capsule(s) PO QD 05/09/2007/31/2012 Inactive TAKE ONE CAPSULE BY MOUTH EV JANKI MORNING metformin ER 500 mg tablet,extended release 24 hr RxNorm: 86 0977 1 Tablet(s) PO QD 05/09/2012 10/26/2012 Inactive TAKE ONE TABLET BY MOUTH EVERY DAY Premarin 0.9 mg tablet RxNorm: 918536 1 Tablet(s) PO QD 05/09/2012 Inactive TAKE ONE TABLET BY MOUTH EVERY DAY Symbicort 160 mcg-4.5 mcg/actuation HFA Aerosol Inhaler RxNo rm: 9912137 2 Puff(s) INH BID 05/09/2012 10/26/2012 Inactive INHALE 2 PUFFS O RALLY TWO TIMES A DAY Endocet 10 mg-325 mg Tab RxNorm: 8009560 1-2 Tablet(s) PO Q4H 04/2705/26/2012 Inactive PRN PAIN MS Contin 200 mg Tab RxNorm: 283844 1 Tablet(s) PO BID 04/26/201202/2012 Inactive Ventolin HFA 90 mcg/actuation Aerosol Inhaler RxNorm: 9480771 2 Puff(s) INH Q4H 04/25/2012 05/10/2012 Inactive prn Soma 350 mg tablet RxNorm: 238323 2 Tablet(s) PO TID 04/19/201207/19 Inactive TAKE ONE TABLET BY MOUTH THREE TIMES A D AY Ventolin HFA 90 mcg/actuation Aerosol Inhaler RxNorm: 8037623 2 Puff(s) INH Q4H 04/12/2012 04/24/2012 Inactive prn Reglan 10 mg tablet RxNorm: 628456 1 Tablet(s) PO QID b efore meals and at bedtime 04/11/2012 07/31/2012 Inactive MS Contin 200 mg Tab RxNorm: 369038 1 Tablet(s) PO BID 03/30/201202/2012 Inactive Endocet 10 mg-325 mg Tab RxNorm: 4994673 1-2 Tablet(s) PO Q4H 03/3004/26/2012 Inactive PRN PAIN MS Contin 200 mg Tab RxNorm: 913936 1 Tablet(s) PO BID 03/02/201206/2012 Inactive Endocet 10 mg-325 mg Tab RxNorm: 1146028 1-2 Tablet(s) PO Q4H 03/0203/29/2012 Inactive PRN PAIN Daliresp 500 mcg tablet RxNorm: 2676816 1 Tablet(s) PO QD 03/01/2012 09/28/2012 Inactive MS Contin 200 mg Tab RxNorm: 965200 1 Tablet(s) PO BID 02/02/201208/2012 Inactive Endocet 10 mg-325 mg Tab RxNorm: 4303326 1-2 Tablet(s) PO Q4H 02/0103/01/2012 Inactive PRN PAIN fluoxetine 40 mg capsule RxNorm: 054129 1 Capsule(s) PO QD 02/02/2008/01/2012 Inactive TAKE ONE CAPSULE BY MOUTH EV JANKI MORNING Synthroid 112 mcg Tab RxNorm: 382382 1 Tablet(s) PO QD 01/18/2012 Inactive TAKE ONE TABLET BY MOUTH EVERY DAY lactulose 10 gram/15 mL oral solution RxNorm: 512370 [address]s) PO QD 01/18/2012 No Stop Date Active TAKE 1 TABLESPOON BY MOUTH ONCE DAILY Ventolin HFA 90 mcg/actuation Aerosol Inhaler RxNorm: 2842369 2 Puff(s) INH Q4H 01/18/2012 04/11/2012 Inactive prn MS Contin 200 mg Tab RxNorm: 277847 1 Tablet(s) PO BID 01/05/201210/2012 Inactive Endocet 10 mg-325 mg Tab RxNorm: 1893585 1-2 Tablet(s) PO Q4H 01/0502/01/2012 Inactive PRN PAIN ProAir HFA 90 mcg/Actuation Aerosol Inhaler RxNorm: 3278262 2 Pu ff(s) INH Q4H 12/21/2011 No Stop Date Active prn for wheezing or shortness of breath Spiriva with HandiHaler 18 mcg & inhalation Caps RxNorm: 580 261 1 Capsule(s) INH 12/21/2011 06/30/2012 Inactive INHALE CONTENTS OF 1 CAPSULE(S) WITH HANDIHALER ONCE DAILY Reglan 10 mg Tab RxNorm: 869990 1 Tablet(s) PO QID before meals and at bedtime 12/21/2011 04/10/2012 Inactive Synthroid 112 mcg Tab RxNorm: 110695 1 Tablet(s) PO QD 12/21/2011 Inactive TAKE ONE TABLET BY MOUTH EVERY DAY Endocet 10 mg-325 mg Tab RxNorm: 8416269 1-2 Tablet(s) PO Q4H 11/2512/24/2011 Inactive PRN PAIN MS Contin 200 mg Tab RxNorm: 666622 1 Tablet(s) PO BID 11/25/201112/2011 Inactive lactulose 10 gram/15 mL Oral Soln RxNorm: 525965 Milliliter(s) PO 1 No Stop Date Active TAKE 1 TABLESPOON BY MOUTH O NCE DAILY lactulose 10 gram/15 mL Oral Soln RxNorm: 828193 Milliliter(s) PO 1 12/12/2010 11/20/2011 Inactive TAKE 1 TABLESPOON BY MOUTH O NCE DAILY Premarin 0.9 mg Tab RxNorm: 311701 1 Tablet(s) PO QD 10/12/201105/08 Inactive TAKE ONE TABLET BY MOUTH EVERY DAY fluoxetine 20 mg capsule RxNorm: 803317 1 Capsule(s) PO QD 10/12/2009/05/2012 Inactive TAKE ONE CAPSULE BY MOUTH EV JANKI DAY Synthroid 112 mcg Tab RxNorm: 254250 1 Tablet(s) PO QD 10/12/2011 Inactive TAKE ONE TABLET BY MOUTH EVERY DAY metformin ER 500 mg 24 hr Tab RxNorm: 308738 1 Tablet(s) PO QD 09/2311/10/2011 Inactive TAKE ONE TABLET BY MOUTH GLYNN RY DAY Synthroid 112 mcg Tab RxNorm: 560777 1 Tablet(s) PO QD 10/12/2011 Inactive TAKE ONE TABLET BY MOUTH EVERY DAY metformin ER 500 mg 24 hr Tab RxNorm: 802605 1 Tablet(s) PO QD 09/2310/11/2011 Inactive TAKE ONE TABLET BY MOUTH GLYNN DAY Prevacid 30 mg Cap RxNorm: 412527 Capsule(s) PO 10/12/2011 01/25/2012 Inactive TAKE ONE CAPSULE BY MOUTH EVERY DAY Symbicort 160 mcg-4.5 mcg/actuation HFA Aerosol Inhaler RxNo rm: 2274274 2 Puff(s) INH BID 10/12/2011 05/08/2012 Inactive INHALE 2 PUFFS O RALLY TWO TIMES A DAY gabapentin 800 mg Tab RxNorm: 820586 1 Tablet(s) PO QD 10/12/2011 Inactive TAKE ONE TABLET BY MOUTH EVERY DAY MS Contin 200 mg Tab RxNorm: 229663 1 Tablet(s) PO BID 09/23/201111/2010 Inactive Endocet 10 mg-325 mg Tab RxNorm: 6508639 1-2 Tablet(s) PO Q4H 09/2310/22/2011 Inactive PRN PAIN Endocet 10 mg-325 mg Tab RxNorm: 2081807 1-2 Tablet(s) PO Q4H 08/2109/19/2011 Inactive PRN PAIN MS Contin 200 mg Tab RxNorm: 846294 1 Tablet(s) PO BID 08/21/2011 Inactive Diflucan 100 mg Tab RxNorm: 495795 1 Tablet(s) PO QD 08/10/201108/16 Inactive cefdinir 300 mg Cap RxNorm: 997914 2 Capsule(s) PO QD 08/10/201107/24 Inactive Reglan 10 mg Tab RxNorm: 268496 1 Tablet(s) PO AC & HS 07/15/2011 Inactive Endocet 10 mg-325 mg Tab RxNorm: 2627293 1-2 Tablet(s) PO Q4H 07/1508/13/2011 Inactive PRN PAIN One Touch Ultra Test strips RxNorm: Miscellaneous BID 06/11/2011 1 01/16/2014 Inactive TEST TWO TIMES A DAY lactulose 10 gram/15 mL Oral Soln RxNorm: 979398 Milliliter(s) PO 0 06/10/2011 10/11/2011 Inactive TAKE 1 TABLESPOON BY MOUTH O NCE DAILY Chantix Continuing Month Aníbal 1 mg Tab RxNorm: 809290 Tablet(s) PO 0 06/10/2011 11/02/2011 Inactive TAKE DIRECTED - PER PACK[employer] GE INSTRUCTIONS fluoxetine 40 mg Cap RxNorm: 070773 Capsule(s) PO 06/10/2011 02/02/20 Inactive TAKE ONE CAPSULE BY MOUTH EVERY MORNING Chantix Continuing Month Aníbal 1 mg Tab RxNorm: 535843 Ta blet(s) PO TAKE DIRECTED - PER PACKAGE INSTRUCTIONS 05/13/2011 06/09/2011 Inactive Soma 350 mg Tab RxNorm: 908540 Tablet(s) PO TAKE ON E TABLET BY MOUTH THREE TIMES A DAY 05/13/2011 04/18/2012 Inactive Chantix Continuing Month Aníbal 1 mg Tab RxNorm: 523679 Ta blet(s) PO as directed per package instructions. 04/22/2011 05/12/2011 Inactive Symbicort 160 mcg-4.5 mcg/Actuation HFA Aerosol Inhaler RxNo rm: 4861388 HFA Aerosol Inhaler INH INHALE 2 PUFFS ORALLY TWO TIMES A DAY 04/13/2011 Inactive Synthroid 112 mcg Tab RxNorm: 767492 Tablet(s) PO TAKE ONE TABLET BY MOUTH EVERY DAY 04/13/2011 10/12/2011 Inactive Premarin 0.9 mg Tab RxNorm: 977812 Tablet(s) PO TAKE ON E TABLET BY MOUTH EVERY DAY 04/13/2011 10/12/2011 Inactive gabapentin 800 mg Tab RxNorm: 453121 Tablet(s) PO TAKE ONE TABLET BY MOUTH EVERY DAY 04/13/2011 10/12/2011 Inactive Prevacid 30 mg Cap RxNorm: 538395 1 Capsule(s) PO QD 04/13/201110/11 Inactive Spiriva with HandiHaler 18 mcg & inhalation Caps RxNorm: 580 261 Capsule(s) INH INHALE CONTENTS OF 1 CAPSULE(S) WITH HANDIHALER ONCE DAILY 04/13/2011 12/21/2011 Inactive metformin ER 500 mg 24 hr Tab RxNorm: 138697 Tablet(s) PO TAKE ONE TABLET BY MOUTH EVERY DAY 04/13/2011 10/12/2011 Inactive Soma 350 mg Tab RxNorm: 164093 1 Tablet(s) PO QID 03/30/2011 02/13/20 19 Inactive fluoxetine 20 mg Cap RxNorm: 824766 Capsule(s) PO TAKE ONE CAPSULE BY MOUTH EVERY DAY 03/25/2011 10/12/2011 Inactive cefdinir 300 mg Cap RxNorm: 839332 2 Capsule(s) PO QD 03/19/201105/2011 Inactive 16.2 mg-0.1037 mg-0.0194 mg Tab RxNorm: 0484560 2 Tablet(s) PO TID PRN for gas and cramping 03/16/2011 07/13/2011 Inactive Soma 350 mg Tab RxNorm: 731245 2 Tablet(s) PO TID 03/16/2011 03/29/20 11 Inactive Chantix Starting Month Aníbal 0.5 mg (11)-1 mg (3x14) Tab s in a Dose Pack RxNorm: 102786 Tablet(s) PO as directed 03/02/2011 No Stop Date Active diazepam 10 mg Tab RxNorm: 528104 1 Tablet(s) PO BID 02/10/201101/19 Inactive Zofran 4 mg tablet RxNorm: 801074 1 Tablet(s) PO Q4H prn nausea 02/16/2011 Inactive Diflucan 100 mg Tab RxNorm: 103658 1 Tablet(s) PO QD 01/18/201101/24 Inactive Premarin 0.625 mg/g Vaginal Cream RxNorm: 687736 VAG In sert 1gm vaginally at bedtime 3 times weekly 01/18/2011 02/12/2019 Inactive loratadine 10 mg Tab RxNorm: 139359 1 Tablet(s) PO QD 12/17/201003/2012 Inactive Spiriva with HandiHaler 18 mcg & inhalation Caps RxNorm: 580 261 1 Capsule(s) INH QD 12/17/2010 04/12/2011 Inactive Diflucan 100 mg Tab RxNorm: 750098 1 Tablet(s) PO QD 12/17/201012/23 Inactive diazepam 10 mg Tab RxNorm: 022377 1 Tablet(s) PO BID and PRN 201002/12/2019 Inactive One Touch Ultra Test Strips RxNorm: InVt BID Zainab t blood sugar at least twice daily. 11/11/2010 06/11/2011 Inactive fluoxetine 40 mg Cap RxNorm: 987264 1 Capsule(s) PO QAM 11/11/2010 Inactive diazepam 10 mg Tab RxNorm: 672639 1 Tablet(s) PO BID and PRN 200911/12/2010 Inactive Bactrim DS 800 mg-160 mg Tab RxNorm: 041186 1 Tablet(s) PO BID 09/2210/15/2010 Inactive fluoxetine 20 mg Cap RxNorm: 308182 1 Capsule(s) PO QD 10/02/201008/2011 Inactive Bactrim DS 800 mg-160 mg Tab RxNorm: 655458 1 Tablet(s) PO BID 01/201010/03/2010 Inactive Zofran 4 mg Tab RxNorm: 806804 1 Tablet(s) PO Q4H prn nausea 200910/16/2010 Inactive 16.2 mg-0.1037 mg-0.0194 mg Tab RxNorm: 9160628 2 Tablet(s) PO TID PRN for gas and cramping 09/17/2010 10/21/2010 Inactive Gabapentin 800 mg Tab RxNorm: 936287 1 Tablet(s) PO QD 09/16/2010 Inactive ProAir HFA 90 mcg/Actuation Aerosol Inhaler RxNorm: 6922696 2 Puff(s) INH Q4H prn shortness of breath 09/15/2010 12/13/2010 Inactive gabapentin 800 mg Tab RxNorm: 087058 1 Tablet(s) PO QD 09/15/2010 Inactive Prevacid 30 mg Cap RxNorm: 147662 1 Capsule(s) PO QD 09/15/201004/12 Inactive loratadine 10 mg Tab RxNorm: 120946 1 Tablet(s) PO QD 09/15/201011/23 Inactive Premarin 0.9 mg Tab RxNorm: 645861 1 Tablet(s) PO QD 09/15/201004/12 Inactive Synthroid 112 mcg Tab RxNorm: 702277 1 Tablet(s) PO QD 09/15/2010 Inactive metformin ER 500 mg 24 hr Tab RxNorm: 862182 1 Tablet(s) PO QD 08/2304/12/2011 Inactive Symbicort 160 mcg-4.5 mcg/Actuation Inhalation HFA Aer osol Inhaler RxNorm: 9759648 2 Puff(s) INH BID 09/15/2010 04/12/2011 Inactive diazepam 10 mg Tab RxNorm: 492096 1 Tablet(s) PO BID and PRN 200910/13/2010 Inactive Phentermine 37.5 mg Cap RxNorm: 469842 1 Capsule(s) PO QD 09/02/2010 11/02/2011 Inactive ProAir HFA 90 mcg/Actuation Aerosol Inhaler RxNorm: 4672233 2 Puff(s) INH Q4H prn shortness of breath 08/07/2010 No Stop Date Active Premarin 0.9 mg Tab RxNorm: 805315 1 Tablet(s) PO QD 08/07/201009/14 Inactive Loratadine 10 mg Tab RxNorm: 917357 1 Tablet(s) PO QD 08/07/201008/23 Inactive Lactulose 10 gram/15 mL Oral Soln RxNorm: 260694 1 Unit Dose PO QD 08/07/2010 02/12/2019 Inactive Zofran 4 mg Tab RxNorm: 469888 1 Tablet(s) PO Q4H prn nausea 2009 No Stop Date Active Gabapentin 800 mg Tab RxNorm: 416448 1 Tablet(s) PO QD 08/07/2010 Inactive Synthroid 112 mcg Tab RxNorm: 139709 1 Tablet(s) PO QD 08/07/2010 Inactive Metformin ER 500 mg 24 hr Tab RxNorm: 734996 1 Tablet(s) PO QD 07/2309/14/2010 Inactive Vitamin D 1,000 unit Tab RxNorm: 504783 1 Tablet(s) PO TID 08/07/2002/12/2019 Inactive Symbicort 160 mcg-4.5 mcg/Actuation Inhalation HFA Aer osol Inhaler RxNorm: 2687108 2 Puff(s) INH BID 08/07/2010 09/14/2010 Inactive Prevacid 30 mg Cap RxNorm: 717731 1 Capsule(s) PO QD 08/07/201009/14 Inactive Metformin ER 500 mg 24 hr Tab RxNorm: 362874 1 Tablet(s) PO QD 06/2308/06/2010 Inactive Vitamin D 1,000 unit Tab RxNorm: 144418 1 Tablet(s) PO TID 07/14/2008/06/2010 Inactive Synthroid 112 mcg Tab RxNorm: 011509 1 Tablet(s) PO QD 07/14/2010 Inactive Lactulose 10 gram/15 mL Oral Soln RxNorm: 644876 1 Unit Dose PO QD 07/14/2010 08/06/2010 Inactive Levaquin 500 mg Tab RxNorm: 122259 1 Tablet(s) PO QD 07/14/201007/27 Inactive Premarin 0.9 mg Tab RxNorm: 842499 1 Tablet(s) PO QD 07/14/201008/06 Inactive ProAir HFA 90 mcg/Actuation Aerosol Inhaler RxNorm: 6449518 2 Puff(s) INH Q4H prn shortness of breath 07/14/2010 No Stop Date Active Prevacid 30 mg Cap RxNorm: 480387 1 Capsule(s) PO QD 07/14/201008/06 Inactive Zofran 4 mg Tab RxNorm: 943226 1 Tablet(s) PO Q4H prn nausea 2009 No Stop Date Active Symbicort 160 mcg-4.5 mcg/Actuation Inhalation HFA Aer osol Inhaler RxNorm: 6875604 2 Puff(s) INH BID 07/14/2010 08/06/2010 Inactive Loratadine 10 mg Tab RxNorm: 962827 1 Tablet(s) PO QD 07/14/201007/23 Inactive Gabapentin 800 mg Tab RxNorm: 072661 1 Tablet(s) PO QD 07/14/2010 Inactive Metformin ER 500 mg 24 hr Tab RxNorm: 569261 1 Tablet(s) PO 010 07/13/2010 Inactive Diazepam 10 mg Tab RxNorm: 949738 1 Tablet(s) PO BID and PRN 200909/06/2010 Inactive Premarin 0.9 mg Tab RxNorm: 277067 1 Tablet(s) PO QD 06/09/201007/13 Inactive Zofran 4 mg Tab RxNorm: 829701 1 Tablet(s) PO Q4H prn nausea 2009 No Stop Date Active ProAir HFA 90 mcg/Actuation Aerosol Inhaler RxNorm: 8320550 2 Puff(s) INH Q4H prn shortness of breath 06/09/2010 No Stop Date Active Gabapentin 800 mg Tab RxNorm: 304439 1 Tablet(s) PO QD 06/09/2010 Inactive Loratadine 10 mg Tab RxNorm: 134578 1 Tablet(s) PO QD 06/09/201006/23 Inactive Lactulose 10 gram/15 mL Oral Soln RxNorm: 200579 1 Unit Dose PO QD 06/09/2010 07/13/2010 Inactive Prevacid 30 mg Cap RxNorm: 134192 1 Capsule(s) PO QD 06/09/201007/13 Inactive Synthroid 112 mcg Tab RxNorm: 317838 1 Tablet(s) PO QD 06/09/2010 Inactive Symbicort 160 mcg-4.5 mcg/Actuation Inhalation HFA Aer osol Inhaler RxNorm: 1227629 2 Puff(s) INH BID 06/09/2010 07/13/2010 Inactive Omnicef 300 mg Cap RxNorm: 804335 2 Capsule(s) PO QD 05/07/201005/20 Inactive Metformin 500 mg Tab RxNorm: 770588 1 Tablet(s) PO QD 05/06/201005/22 Inactive ProAir HFA 90 mcg/Actuation Aerosol Inhaler RxNorm: 4657169 2 Puff(s) INH Q4H prn shortness of breath 05/06/2010 No Stop Date Active lactulose 10 gram/15 mL Oral Soln RxNorm: 830840 1 Unit Dose PO QD 05/06/2010 06/10/2011 Inactive Loratadine 10 mg Tab RxNorm: 262144 1 Tablet(s) PO QD 05/06/201005/22 Inactive Synthroid 112 mcg Tab RxNorm: 927035 1 Tablet(s) PO QD 05/06/2010 Inactive Symbicort 160 mcg-4.5 mcg/Actuation Inhalation HFA Aer osol Inhaler RxNorm: 2880036 2 Puff(s) INH BID 05/06/2010 06/08/2010 Inactive Gabapentin 800 mg Tab RxNorm: 641684 1 Tablet(s) PO QD 05/06/2010 Inactive 16.2 mg-0.1037 mg-0.0194 mg Tab RxNorm: 3683733 2 Tablet(s) PO TID PRN for gas and cramping 05/06/2010 05/12/2010 Inactive Zofran 4 mg Tab RxNorm: 211728 1 Tablet(s) PO Q4H prn nausea 200904/13/2010 Inactive MS Contin 60 mg Tab RxNorm: 326369 3 Tablet(s) PO BID 04/09/201004/22 Inactive Soma 350 mg Tab RxNorm: 589008 2 Tablet(s) PO TID 04/09/2010 05/08/20 10 Inactive Symbicort 160 mcg-4.5 mcg/Actuation Inhalation HFA Aer osol Inhaler RxNorm: 2918829 2 Puff(s) INH BID 04/08/2010 05/05/2010 Inactive Doxycycline 100 mg Cap RxNorm: 1267100 1 Capsule(s) PO BID 04/08/20 10 04/17/2010 Inactive Triamterene-Hydrochlorothiazide 37.5 mg-25 mg Cap RxNorm: 19 8316 1 Capsule(s) PO QAM 04/08/2010 09/04/2010 Inactive fluoxetine 40 mg Cap RxNorm: 293703 1 Capsule(s) PO QAM 04/08/2010 Inactive Morphine SR 120 mg multiphase 24 hr Cap RxNorm: 625563 1 Capsul e(s) PO 03/11/2010 04/07/2010 Inactive Endocet 10 mg-325 mg Tab RxNorm: 2332246 1-2 Tablet(s) PO Q4H NE N PAIN 03/11/2010 04/09/2010 Inactive Savella 100 mg Tab RxNorm: 377520 1 Tablet(s) PO BID 03/10/201004/09 Inactive Soma 350 mg Tab RxNorm: 641903 1 Tablet(s) PO TID prn spasm 010 04/09/2010 Inactive Savella 100 mg Tab RxNorm: 289502 1 Tablet(s) PO BID 02/03/201004/09 Inactive Aspirin 81 mg Tab RxNorm: 702703 1 Tablet(s) PO QD No Start Date Active Zyrtec 10 mg Tab RxNorm: 7156119 1 Tablet(s) PO QD No Start Date Active One Touch Ultra Test Strips RxNorm: Misc test at least t wice daily. No Start Date Active coenzyme Q10 200 mg capsule RxNorm: 151287 1 Capsule(s) PO QD No Star t Date Active One Touch Ultra Test Strips RxNorm: InVt BID Zainab t blood sugar at least twice daily. No Start Date 11/10/2010 Inactive Gabapentin 800 mg Tab RxNorm: 349410 1 Tablet(s) PO QD No Start Date 05/05/2010 Inactive Abilify 5 mg tablet RxNorm: 971717 1 Tablet(s) PO QD No Start Date Inactive Chantix 1 mg Tab RxNorm: 810340 1 Tablet(s) PO BID No Start Date 10/22 Inactive Ozempic 0.25 mg or 0.5 mg (2 mg/1.5 mL) subcutaneous p en injector RxNorm: 7468724 .25 Milligram(s) SQ QW No Start Date 07/04/2019 Inactive lancets 28 gauge RxNorm: Miscellaneous As needed for blo od glucose sticks No Start Date 08/23/2013 Inactive potassium chloride ER 20 mEq tablet,extended release RxNorm: 777004 2 Tablet(s) PO QD No Start Date 09/26/2018 Inactive Ventolin HFA 90 mcg/actuation Aerosol Inhaler RxNorm: 722378 1 2 Puff(s) INH Q4H prn No Start Date 01/17/2012 Inactive potassium chloride ER 20 mEq tablet,extended release RxNorm: 719841 2 Tablet(s) PO QD No Start Date 10/19/2018 Inactive Januvia 100 mg tablet RxNorm: 191534 1 Tablet(s) PO QD No Start Date 09/10/2015 Inactive Medrol (Aníbal) 4 mg Tabs in a Dose Pack RxNorm: 042109 Tablet(s) PO N o Start Date 08/09/2011 Inactive as directed Zithromax Z-Aníbal 250 mg Tab RxNorm: 602825 Tablet(s) PO No Start Date 01/25/2012 Inactive as directed vitamin B6-vitamin E-magnesium tablet RxNorm: 1 Tablet(s ) PO QHS with INH No Start Date 03/30/2018 Inactive prednisone 20 mg Tab RxNorm: 004910 1 Tablet(s) PO TID for 1wk then 1 po BID for 1wk No Start Date 01/25/2012 Inactive furosemide 40 mg tablet RxNorm: 260493 1 Tablet(s) PO QAM No Start Date 10/09/2018 Inactive Vitamin D3 1000 units Capsule RxNorm: 1 Capsule(s) PO TID No S tart Date 03/19/2015 Inactive Zofran 4 mg Tab RxNorm: 899526 1 Tablet(s) PO Q4H prn nausea No Sta rt Date 04/13/2010 Inactive Premarin 0.625 mg/g Vaginal Cream RxNorm: 307244 1 Gram (s) VAG QHS 3 times a week No Start Date 09/22/2017 Inactive oxycodone 10 mg tablet RxNorm: 5728897 1-2 Tablet(s) PO QID as n eeded for pain No Start Date 11/04/2015 Inactive Nicoderm CQ 21 mg/24 hr daily Patch RxNorm: 064035 1 Applicatio n TD QD No Start Date 08/05/2015 Inactive Topamax 50 mg tablet RxNorm: 747831 1/2 Tablet(s) PO QH S for 1wk then 1 po q HS for 1wk then 2 po q HS No Start Date 06/27/2012 Inactive Chantix Starting Month Aníbal 0.5 mg (11)-1 mg (3x14) Tab s in a Dose Pack RxNorm: 594030 Tablet(s) PO as directed No Start Date 03/01/2011 Inactive Trulicity 0.75 mg/0.5 mL subcutaneous pen injector RxNorm: 1 499706 Milliliter(s) SQ No Start Date 07/04/2019 Inactive Medrol (Aníbal) 4 mg Tabs in a Dose Pack RxNorm: 330133 Tablet(s) PO N o Start Date 01/25/2012 Inactive as directed Duragesic 100 mcg/hr Transderm Patch RxNorm: 882859 2 A pplication TD Q48H for pain No Start Date 09/05/2013 Inactive Premarin 0.9 mg Tab RxNorm: 770823 1 Tablet(s) PO QD No Start Date Inactive Zithromax Z-Aníbal 250 mg Tab RxNorm: 937041 Tablet(s) PO as direc chinmay No Start Date 01/25/2012 Inactive ondansetron 8 mg disintegrating tablet RxNorm: 824130 1 Tablet(s) PO Q6H as needed No Start Date 10/10/2018 Inactive oxycodone 15 mg tablet RxNorm: 9968239 1 Tablet(s) PO QID as nee ded for pain No Start Date 03/05/2019 Inactive ProAir HFA 90 mcg/Actuation Aerosol Inhaler RxNorm: 556029 2 Puff(s) INH Q4H prn for wheezing or shortness of breath No Start Date 12/21/2011 Inactive pravastatin 40 mg tablet RxNorm: 588743 1/2 Tablet(s) PO QOD No Sta rt Date 04/09/2015 Inactive ipratropium-albuterol 0.5 mg-3 mg(2.5 mg base)/3 mL ne bulization soln RxNorm: 5827982 1 Unit Dose INH Q4H as needed No Start Date 09/09/2016 Inactive furosemide 40 mg tablet RxNorm: 836297 1 Tablet(s) PO QAM as ne eded No Start Date 09/24/2019 Inactive Vitamin D2 oral RxNorm: 4018 oral No Start Date 03/18/2015 Inacti ve pravastatin 40 mg tablet RxNorm: 363718 1/2 Tablet(s) PO QD No Star t Date 04/09/2015 Inactive ondansetron HCl 4 mg tablet RxNorm: 382298 1 Tablet(s) PO Q4H as needed for nausea and vomiting No Start Date 04/07/2016 Inactive furosemide 40 mg tablet RxNorm: 846751 2 Tablet(s) PO QAM No Start Date 09/26/2018 Inactive gabapentin 800 mg tablet RxNorm: 423805 1/2 Tablet(s) PO BID No Sta rt Date 06/21/2017 Inactive gabapentin 800 mg tablet RxNorm: 197500 1/2 Tablet(s) PO BID No Sta rt Date 07/05/2017 Inactive ProAir HFA 90 mcg/Actuation Aerosol Inhaler RxNorm: 2845976 2 Puff(s) INH Q4H prn shortness of breath No Start Date 05/05/2010 Inactive scopolamine 1 mg over 3 days transdermal patch RxNorm: 36909 2 1 Application TD behind ear. Take off after three days No Start Date 10/10/2018 Inactive Metformin 500 mg Tab RxNorm: 737087 1 Tablet(s) PO QD No Start Date 0 05/05/2010 Inactive MS Contin 200 mg Tab RxNorm: 210796 1 Tablet(s) PO BID No Start Date 08/20/2011 Inactive Belladonna-Phenobarbital 48 mg tablet,extended release RxNor m: 2 Tablet(s) PO TID No Start Date 06/04/2016 Inactive Synthroid 112 mcg Tab RxNorm: 267365 1 Tablet(s) PO QD No Start Date 05/05/2010 Inactive Zegerid 40 mg-1.1 gram Cap RxNorm: 890193 1 Capsule(s) PO QD No Sta rt Date 01/25/2012 Inactive Premarin 0.625 mg/g Vaginal Cream RxNorm: 102494 VAG In sert 1gm vaginally at bedtime 3 times weekly No Start Date 01/17/2011 Inactive potassium chloride ER 20 mEq tablet,extended release RxNorm: 909083 1 Tablet(s) PO QD No Start Date 04/24/2019 Inactive methocarbamol 750 mg tablet RxNorm: 364900 2 Tablet(s) PO TID as needed for muscle spasm No Start Date 07/08/2014 Inactive Biaxin XL Aníbal 500 mg 24 hr Tab RxNorm: 586613 Tablet(s) PO as d irected No Start Date 04/24/2013 Inactive Vitamin D3 1,000 unit tablet RxNorm: 235037 3 Tablet(s) PO QD No St art Date 06/01/2017 Inactive Morphine SR 120 mg multiphase 24 hr Cap RxNorm: 532020 1 Capsul e(s) PO BID No Start Date 04/09/2010 Inactive Silvadene 1 % topical cream RxNorm: 131911 1 Application TOP BI D to burn area No Start Date 01/31/2017 Inactive Prednisone 20 mg Tab RxNorm: 231372 1 Tablet(s) PO TID for 3days then BID for 4days No Start Date 01/25/2012 Inactive gabapentin 600 mg tablet RxNorm: 869295 1 Tablet(s) PO BID No Start Date 01/21/2015 Inactive topiramate 50 mg tablet RxNorm: 492465 1 Tablet(s) PO QHS No Start Date 03/30/2018 Inactive Januvia 100 mg tablet RxNorm: 543713 1/2 Tablet(s) PO QD No Start D ate 12/25/2015 Inactive Diazepam 10 mg Tab RxNorm: 544417 1 Tablet(s) PO BID and PRN No Sta rt Date 06/08/2010 Inactive Medication Administered No Medication Administered data Immunizations Vaccine Codes Date Status Influenza CVX: 141 09/28/2012 Pneumovax Unknown 09/28/2012 Influenza (Adult) CVX: 141 09/02/2010 Results No Results data Procedures Procedure Codes Date THER/PROPH/DIAG INJ SC/IM CPT-4: 07323 07/10/2019 METHYLPREDNISOLONE INJECTION CPT-4: J2930 07/10/2019 URINALYSIS NONAUTO W/O SCOPE CPT-4: 32346 09/06/2018 URINE CULTURE/ COLONY COUNT CPT-4: 38167 09/06/2018 DRAIN/INJECT JOINT/BURSA CPT-4: 07873 04/29/2017 TRIAMCINOLONE ACET INJ NOS CPT-4: J3301 04/29/2017 DEXAMETHASONE SODIUM PHOS CPT-4: J1100 04/29/2017 INFLUENZA ASSAY W/OPTIC CPT-4: 47860 12/01/2016 RESPIRATORY CULTURE & STAIN CPT-4: 21021 07/09/2016 TB INTRADERMAL TEST CPT-4: 84480 04/21/2016 DRAIN/INJECT JOINT/BURSA CPT-4: 38752 11/07/2013 METHYLPREDNISOLONE 40 MG INJ CPT-4: J1030 11/07/2013 TRIAMCINOLONE ACET INJ NOS CPT-4: J3301 11/07/2013 DRAIN/INJECT JOINT/BURSA CPT-4: 59863 08/08/2013 METHYLPREDNISOLONE 40 MG INJ CPT-4: J1030 08/08/2013 TRIAMCINOLONE ACET INJ NOS CPT-4: J3301 08/08/2013 FLU VACCINE 3 YRS & > IM UP 64 CPT-4: 51474 2 PNEUMOCOCCAL VACC 23 ADITYA IM CPT-4: 28311 09/28/2012 IMMUNIZATION ADMIN CPT-4: 70324 09/28/2012 IMMUNIZATION ADMIN EACH ADD CPT-4: 63979 09/28/2012 FLU VACCINE 3 YRS & > IM UP 64 CPT-4: 82121 0 IMMUNIZATION ADMIN CPT-4: 41239 09/02/2010 METHYLPREDNISOLONE INJECTION CPT-4: J2930 05/07/2010 THER/PROPH/DIAG INJ SC/IM CPT-4: 77545 05/07/2010 Vital Signs Date Vital 10/30/2019 Blood [...] 1: 122/78 Code: 8480-6 BMI: 29.5 Code: 13227-4 Heart Rate 1: 76 bpm Height: 5'4" Respiratory Rate: 20 bpm SpO2: 96% Tempera ture: 37.0 (C) / 98.6 (F) Weight: 172 lbs 01/25/2019 Blood Pressure 1: 132/80 Code: 8480-6 BMI: 29.7 Code: 78467-3 Heart Rate 1: 84 bpm Height: 5'4" Respiratory Rate: 22 bpm SpO2: 98% Tempera ture: 36.9 (C) / 98.4 (F) Weight: 173 lbs 01/03/2019 Blood Pressure 1: 116/70 Code: 8480-6 BMI: 29.5 Code: 08205-4 Heart Rate 1: 92 bpm Height: 5'4" Respiratory Rate: 24 bpm SpO2: 98% Tempera ture: 37.2 (C) / 98.9 (F) Weight: 172 lbs 11/21/2018 Blood Pressure 1: 146/82 Code: 8480-6 BMI: 28.2 Code: 45462-9 Heart Rate 1: 88 bpm Height: 5'4" Respiratory Rate: 22 bpm SpO2: 97% Tempera ture: 36.9 (C) / 98.4 (F) Weight: 164 lbs 10/27/2018 Blood Pressure 1: 122/70 Code: 8480-6 BMI: 27.6 Code: 80303-3 Heart Rate 1: 88 bpm Height: 5'4" Respiratory Rate: 20 bpm SpO2: 96% Tempera ture: 36.8 (C) / 98.3 (F) Weight: 161 lbs 10/18/2018 Blood Pressure 1: 126/70 Code: 8480-6 BMI: 28.3 Code: 90883-2 Heart Rate 1: 76 bpm Height: 5'4" Respiratory Rate: 20 bpm SpO2: 95% Tempera ture: 37.0 (C) / 98.6 (F) Weight: 165 lbs 09/27/2018 Blood Pressure 1: 124/78 Code: 8480-6 BMI: 27.1 Code: 72611-9 Heart Rate 1: 88 bpm Height: 5'4" Respiratory Rate: 20 bpm SpO2: 98% Tempera ture: 36.4 (C) / 97.6 (F) Weight: 158 lbs 09/14/2018 Blood Pressure 1: 140/72 Code: 8480-6 BMI: 26.1 Code: 51586-6 Heart Rate 1: 100 bpm Height: 5'4" Respiratory Rate: 20 bpm SpO2: 97% Tempera ture: 36.9 (C) / 98.4 (F) Weight: 152 lbs 09/06/2018 Blood Pressure 1: 156/82 Code: 8480-6 BMI: 26.3 Code: 00854-3 Heart Rate 1: 100 bpm Height: 5'4" Respiratory Rate: 28 bpm SpO2: 95% Tempera ture: 37.2 (C) / 98.9 (F) Weight: 153 lbs 08/16/2018 Blood Pressure 1: 130/78 Code: 8480-6 Heart Rate 1: 87 bpm Respiratory Rate: 24 bpm SpO2: 94% Temperature: 36.9 (C) / 98.4 (F) We ight: 147 lbs 8 oz 07/07/2018 Blood Pressure 1: 116/78 Code: 8480-6 BMI: 22.7 Code: 46535-1 Heart Rate 1: 88 bpm Height: 5'4" Respiratory Rate: 22 bpm SpO2: 98% Tempera ture: 36.5 (C) / 97.7 (F) Weight: 132 lbs 05/31/2018 Blood Pressure 1: 128/78 Code: 8480-6 BMI: 22.3 Code: 86814-3 Heart Rate 1: 92 bpm Height: 5'4" Respiratory Rate: 26 bpm SpO2: 94% Tempera ture: 36.7 (C) / 98.1 (F) Weight: 130 lbs 03/31/2018 Blood Pressure 1: 136/78 Code: 8480-6 BMI: 21.5 Code: 40457-5 Heart Rate 1: 76 bpm Height: 5'4" Respiratory Rate: 24 bpm SpO2: 95% Tempera ture: 36.8 (C) / 98.3 (F) Weight: 125 lbs 01/26/2018 Blood Pressure 1: 142/64 Code: 8480-6 BMI: 20.6 Code: 64304-1 Heart Rate 1: 90 bpm Height: 5'4" Respiratory Rate: 24 bpm SpO2: 92% Tempera ture: 36.3 (C) / 97.3 (F) Weight: 120 lbs 10/26/2017 Blood Pressure 1: 124/70 Code: 8480-6 BMI: 20.3 Code: 62018-2 Heart Rate 1: 76 bpm Height: 5'4" Respiratory Rate: 22 bpm SpO2: 94% Tempera ture: 36.7 (C) / 98.1 (F) Weight: 118 lbs 09/23/2017 Blood Pressure 1: 106/70 Code: 8480-6 BMI: 19.2 Code: 60504-8 Heart Rate 1: 76 bpm Height: 5'4" Respiratory Rate: 20 bpm SpO2: 94% Tempera ture: 36.8 (C) / 98.3 (F) Weight: 112 lbs 08/12/2017 Blood Pressure 1: 116/68 Code: 8480-6 BMI: 20.1 Code: 47175-5 Heart Rate 1: 80 bpm Height: 5'4" Respiratory Rate: 22 bpm SpO2: 95% Tempera ture: 36.8 (C) / 98.2 (F) Weight: 117 lbs 07/06/2017 Blood Pressure 1: 136/78 Code: 8480-6 BMI: 20.6 Code: 82690-5 Heart Rate 1: 76 bpm Height: 5'4" Respiratory Rate: 24 bpm SpO2: 96% Tempera ture: 36.8 (C) / 98.2 (F) Weight: 120 lbs 06/02/2017 Blood Pressure 1: 112/70 Code: 8480-6 Heart Rate 1: 92 bpm Height: 5'4" Respiratory Rate: 24 bpm SpO2: 95% Temperature: 37.0 (C) / 98.6 (F) Weight: 04/29/2017 Blood Pressure 1: 94/52 Code: 8480-6 BMI: 19.6 C ode: 60135-1 Heart Rate 1: 84 bpm Height: 5'4" [...] 92/58 Code: 8480-6 BMI: 19.2 C ode: 75647-6 Heart Rate 1: 84 bpm Height: 5'4" Respiratory Rate: 26 bpm SpO2: 95% Tempera ture: 36.7 (C) / 98.0 (F) Weight: 112 lbs 12/01/2016 Blood Pressure 1: 114/70 Code: 8480-6 BMI: 19.2 Code: 90258-3 Heart Rate 1: 96 bpm Height: 5'4" Respiratory Rate: 28 bpm SpO2: 93% Tempera ture: 38.3 (C) / 101.0 (F) Weight: 112 lbs 10/27/2016 Blood Pressure 1: 126/66 Code: 8480-6 BMI: 19.6 Code: 11579-8 Heart Rate 1: 92 bpm Height: 5'4" Respiratory Rate: 28 bpm SpO2: 90% Tempera ture: 36.8 (C) / 98.3 (F) Weight: 114 lbs 09/09/2016 Blood Pressure 1: 126/74 Code: 8480-6 Heart Rate 1: 104 bpm Height: 5'4" Respiratory Rate: 32 bpm SpO2: 88% Temperature: 37 .2 (C) / 99.0 (F) 08/26/2016 Blood Pressure 1: 134/82 Code: 8480-6 BMI: 22.0 Code: 31734-8 Heart Rate 1: 84 bpm Height: 5'4" Respiratory Rate: 24 bpm SpO2: 94% Tempera ture: 36.8 (C) / 98.3 (F) Weight: 128 lbs 05/21/2016 Blood Pressure 1: 142/80 Code: 8480-6 BMI: 21.6 Code: 32707-8 Heart Rate 1: 104 bpm Height: 5'4" Respiratory Rate: 22 bpm SpO2: 93% Tempera ture: 36.0 (C) / 96.8 (F) Weight: 126 lbs 03/25/2016 Blood Pressure 1: 126/62 Code: 8480-6 Heart Rate 1: 88 bpm Respiratory Rate: 20 bpm SpO2: 92% Temperature: 36.8 (C) / 98.3 (F) We ight: 130 lbs 01/23/2016 Blood Pressure 1: 146/82 Code: 8480-6 BMI: 24.1 Code: 24175-9 Heart Rate 1: 92 bpm Height: 5'3" Respiratory Rate: 22 bpm Temperature: 37 .1 (C) / 98.8 (F) Weight: 136 lbs 12/26/2015 Blood Pressure 1: 142/78 Code: 8480-6 BMI: 24.6 Code: 16252-2 Heart Rate 1: 78 bpm Height: 5'3" Respiratory Rate: 20 bpm Temperature: 36 .7 (C) / 98.1 (F) Weight: 139 lbs 12/03/2015 Blood Pressure 1: 126/60 Code: 8480-6 BMI: 24.6 Code: 25476-8 Heart Rate 1: 100 bpm Height: 5'3" Respiratory Rate: 28 bpm Temperature: 37 .6 (C) / 99.6 (F) Weight: 139 lbs 09/10/2015 Blood Pressure 1: 124/64 Code: 8480-6 BMI: 23.7 Code: 85525-7 Heart Rate 1: 88 bpm Height: 5'3" Respiratory Rate: 24 bpm SpO2: 95% Tempera ture: 36.4 (C) / 97.6 (F) Weight: 134 lbs 08/06/2015 Blood Pressure 1: 114/76 Code: 8480-6 BMI: 23.2 Code: 28379-1 Heart Rate 1: 88 bpm Height: 5'3" Respiratory Rate: 22 bpm Temperature: 36 .6 (C) / 97.9 (F) Weight: 131 lbs 07/18/2015 Blood Pressure 1: 144/78 Code: 8480-6 BMI: 23.7 Code: 71881-5 Heart Rate 1: 84 bpm Height: 5'3" Respiratory Rate: 20 bpm Temperature: 37 .2 (C) / 99.0 (F) Weight: 134 lbs 04/10/2015 Blood Pressure 1: 110/64 Code: 8480-6 Heart Rate 1: 80 bpm Height: Respiratory Rate: 20 bpm Temperature: 37.1 (C) / 98.8 (F) Weight: 03/05/2015 Blood Pressure 1: 136/80 Code: 8480-6 BMI: 23.9 Code: 18250-0 Heart Rate 1: 76 bpm Height: 5'3" Respiratory Rate: 24 bpm Temperature: 37 .0 (C) / 98.6 (F) Weight: 135 lbs 01/30/2015 Blood Pressure 1: 142/80 Code: 8480-6 BMI: 23.0 Code: 99564-9 Heart Rate 1: 96 bpm Height: 5'3" Respiratory Rate: 22 bpm Temperature: 36 .2 (C) / 97.2 (F) Weight: 130 lbs 01/02/2015 Blood Pressure 1: 124/70 Code: 8480-6 BMI: 23.4 Code: 17415-7 Heart Rate 1: 84 bpm Height: 5'3" Respiratory Rate: 24 bpm SpO2: 95% Tempera ture: 36.9 (C) / 98.5 (F) Weight: 132 lbs 10/03/2014 Blood Pressure 1: 106/68 Code: 8480-6 BMI: 22.5 Code: 37322-9 Heart Rate 1: 88 bpm Height: 5'3" Respiratory Rate: 24 bpm Temperature: 37 .0 (C) / 98.6 (F) Weight: 127 lbs 08/27/2014 Blood Pressure 1: 124/68 Code: 8480-6 BMI: 21.1 Code: 11764-5 Heart Rate 1: 88 bpm Height: 5'3" [...] 1: 120/70 Code: 8480-6 BMI: 19.2 Code: 10561-9 Heart Rate 1: 70 bpm Height: 5'4" Respiratory Rate: 20 bpm Temperature: 36 .9 (C) / 98.4 (F) Weight: 112 lbs 06/28/2013 Blood Pressure 1: 102/68 Code: 8480-6 BMI: 19.6 Code: 96994-7 Heart Rate 1: 76 bpm Height: 5'4" Respiratory Rate: 20 bpm Temperature: 36 .8 (C) / 98.2 (F) Weight: 114 lbs 05/31/2013 Blood Pressure 1: 106/70 Code: 8480-6 BMI: 18.9 Code: 31893-0 Heart Rate 1: 100 bpm Height: 5'4" Respiratory Rate: 20 bpm Temperature: 36 .4 (C) / 97.6 (F) Weight: 110 lbs 05/03/2013 Blood Pressure 1: 126/70 Code: 8480-6 BMI: 19.1 Code: 42348-9 Heart Rate 1: 88 bpm Height: 5'4" Respiratory Rate: 20 bpm Temperature: 37 .1 (C) / 98.8 (F) Weight: 111 lbs 04/25/2013 Blood Pressure 1: 114/68 Code: 8480-6 BMI: 19.4 Code: 17966-3 Heart Rate 1: 92 bpm Height: 5'4" Respiratory Rate: 24 bpm SpO2: 96% Tempera ture: 37.7 (C) / 99.8 (F) Weight: 113 lbs 03/08/2013 Blood Pressure 1: 9468 Code: 8480-6 BMI: 21.3 C ode: 93162-5 Heart Rate 1: 88 bpm Height: 5'4" Respiratory Rate: 24 bpm Temperature: 37 .0 (C) / 98.6 (F) Weight: 124 lbs 02/07/2013 Blood Pressure 1: 106/64 Code: 8480-6 BMI: 21.8 Code: 80882-3 Heart Rate 1: 84 bpm Height: 5'4" Respiratory Rate: 22 bpm Temperature: 36 .8 (C) / 98.2 (F) Weight: 127 lbs 01/10/2013 Blood Pressure 1: 122/68 Code: 8480-6 BMI: 21.6 Code: 48464-7 Heart Rate 1: 94 bpm Height: 5'4" SpO2: 94% Temperature: 36.7 (C) / 98.1 (F) Weight: 126 lbs 09/28/2012 Blood Pressure 1: 124/78 Code: 8480-6 BMI: 24.9 Code: 95124-2 Heart Rate 1: 92 bpm Height: 5'4" Respiratory Rate: 20 bpm Temperature: 36 .7 (C) / 98.1 (F) Weight: 145 lbs 06/28/2012 Blood Pressure 1: 134/80 Code: 8480-6 BMI: 24.9 Code: 62835-8 Heart Rate 1: 76 bpm Height: 5'4" Respiratory Rate: 20 bpm Temperature: 36 .8 (C) / 98.2 (F) Weight: 145 lbs 05/03/2012 Blood Pressure 1: 108/62 Code: 8480-6 BMI: 25.6 Code: 24809-0 Heart Rate 1: 88 bpm Height: 5'4" Temperature: 36.2 (C) / 97.2 (F) Weight: 149 lbs 03/01/2012 Blood Pressure 1: 124/66 Code: 8480-6 BMI: 25.1 Code: 81947-0 Heart Rate 1: 76 bpm Height: 5'4" Respiratory Rate: 20 bpm Temperature: 36 .6 (C) / 97.9 (F) Weight: 146 lbs 01/26/2012 Blood Pressure 1: 118/82 Code: 8480-6 BMI: 25.1 Code: 71459-9 Heart Rate 1: 74 bpm Height: 5'4" Temperature: 36.8 (C) / 98.2 (F) Weight: 146 lbs 11/03/2011 Blood Pressure 1: 126/80 Code: 8480-6 BMI: 27.3 Code: 96233-3 Heart Rate 1: 72 bpm Height: 5'4" [...] prozac Encounters Encounter Performer Location Codes Date ([id number]) OFFICE/OUTPATIENT VISIT EST Diagnosis: Chronic pain syndrome[ICD10: G89.4] Diagnosis: Lumbar degenerative disc disease[ICD10: M51.36] Diagnosis: Muscle spasm[ICD10: M62.838] Vika RENTERIA [employer] CPT-4: 15718 10/30/2019 ([id number]) OFFICE/OUTPATIENT VISIT EST Diagnosis: Chronic pain syndrome[ICD10: G89.4] [facility] CPT-4: 15593 10/25/2019 ([id number]) OFFICE/OUTPATIENT VISIT EST Diagnosis: Epigastric pain[ICD10: R10.13] Diagnosis: Nausea[ICD10: R11.0] Diagnosis: Chronic obstructive pulmonary disease, unspecified[ICD10: J44.9] Vika RENTERIA [employer] CPT-4: 72388 07/26/2019 ([id number]) OFFICE/OUTPATIENT VISIT EST Diagnosis: Chronic obstructive pulmonary disease with (acute) exacerbation[ICD10: J44.1] Diagnosis: Chronic respiratory failure with hypoxia[ICD10: J96.11] Diagnosis: Other fatigue[ICD10: R53.83] Diagnosis: Edema, unspecified[ICD10: R60.9] Vika RENTERIA [employer] [facility] CPT-4: 61650 07/19/2019 ([id number]) OFFICE/OUTPATIENT VISIT EST Diagnosis: Chronic obstructive pulmonary disease with acute lower respiratory infection[ICD10: J44.0] Vika RENTERIA [employer] [facility] CPT-4: 85661 07/10/2019 ([id number]) OFFICE/OUTPATIENT VISIT EST Diagnosis: Type 2 diabetes mellitus with hyperglycemia[ICD10: E11.65] Diagnosis: Other infective otitis externa, left ear[ICD10: H60.392] Vika RENTERIA [employer] [facility] CPT-4: 29188 06/05/2019 ([id number]) OFFICE/OUTPATIENT VISIT EST Diagnosis: Chronic obstructive pulmonary disease with (acute) exacerbation[ICD10: J44.1] Diagnosis: Type 2 diabetes mellitus with hyperglycemia[ICD10: E11.65] Vika RENTERIA [employer] [facility] CPT-4: 39981 05/03/2019 ([id number]) OFFICE/OUTPATIENT VISIT EST Diagnosis: Type 2 diabetes mellitus with hyperglycemia[ICD10: E11.65] Diagnosis: Abnormal weight gain[ICD10: R63.5] Diagnosis: Chronic obstructive pulmonary disease with acute lower respiratory infection[ICD10: J44.0] Vika RENTERIA [employer] [facility] CPT-4: 19561 04/11/2019 ([id number]) OFFICE/OUTPATIENT VISIT EST Diagnosis: Hypothyroidism, unspecified[ICD10: E03.9] Diagnosis: Abnormal weight gain[ICD10: R63.5] Diagnosis: Other fatigue[ICD10: R53.83] Vika RENTERIA [employer] [facility] CPT-4: 31330 03/16/2019 ([id number]) OFFICE/OUTPATIENT VISIT EST Diagnosis: Abnormal weight gain[ICD10: R63.5] Diagnosis: Chronic obstructive pulmonary disease, unspecified[ICD10: J44.9] Diagnosis: Other chronic pain[ICD10: G89.29] Vika RENTERIA DO [facility] CPT-4: 97064 02/13/2019 ([id number]) OFFICE/OUTPATIENT VISIT EST Diagnosis: Chronic pain syndrome[ICD10: G89.4] Diagnosis: Edema, unspecified[ICD10: R60.9] Diagnosis: Major depressive disorder, 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] Diagnosis: Other fatigue[ICD10: R53.83] Vika RENTERIA DO [facility] CPT-4: 48699 01/25/2019 ([id number]) OFFICE/OUTPATIENT VISIT EST Diagnosis: Localized edema[ICD10: R60.0] Diagnosis: Other forms of dyspnea[ICD10: R06.09] Diagnosis: Hypothyroidism, unspecified[ICD10: E03.9] Vika RENTERIA DO [facility] CPT-4: 25267 01/03/2019 ([id number]) OFFICE/OUTPATIENT VISIT EST Diagnosis: Abnormal weight gain[ICD10: R63.5] Diagnosis: Localized edema[ICD10: R60.0] Diagnosis: Chronic pain syndrome[ICD10: G89.4] Vika RENTERIA DO [facility] CPT-4: 10287 11/21/2018 ([id number]) OFFICE/OUTPATIENT VISIT EST Diagnosis: Localized edema[ICD10: R60.0] Vika RENTERIA DO [facility] CPT-4: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
--- OUTSIDE RECORDS SUMMARY | 2020-04-24 23:44 | XMS REPORT | CCD ---
Author Author Yana Renteria D.O. Organization [facility] Address [address] [place] [address] Phone Care Team Providers Care Burrer Hand Name Role Phone Vika Renteria D.O., PP Unavailable CCM Unavailable Summary Purpose Interface Exchange Insurance Providers Payer name Policy type / Coverage type Covered alliance party ID Effective Begin Date Effective End Date [employer] [facility] [place] Medicaid [id number] 2018 U nknown Family History Family History data not found Social History Social History Element Codes Description Effective Dates Marital status Unknown 06/28/[address]: 32569466 Currently smokes tobacco 05/2013 Allergies, Adverse Reactions, [...] MS Contin 100 mg tablet,extended release RxNorm: 909554 1 Table t(s) Oral QD 10/30/2019 11/29/2019 Active ferrous sulfate 325 mg (65 mg iron) tablet RxNorm: 634813 1 Tab let(s) Oral QD 10/30/2019 No Stop Date Active Relistor 150 mg tablet RxNorm: 5627329 TAKE THREE TABLETS BY BENOIT TH DAILY 10/25/2019 No Stop Date Active oxycodone 15 mg tablet RxNorm: 1293396 1 Tablet(s) Oral four times a day as needed for pain 10/25/2019 10/25/2019 Inactive pantoprazole 40 mg tablet,delayed release RxNorm: 428186 1 Tabl et(s) Oral QD 10/25/2019 No Stop Date Active metformin 500 mg tablet RxNorm: 104961 1 Tablet(s) Oral QD 10/25/20 19 No Stop Date Active levothyroxine 25 mcg tablet RxNorm: 386523 1 Tablet(s) Oral QAM 02/201912/23/2019 Active Minipress 2 mg capsule RxNorm: 001018 1 Capsule(s) Oral QAM and 3 at bedtime 10/25/2019 No Stop Date Active Lancets, Super Thin RxNorm: 1 Unit Dose Miscellaneous QD 9 11/27/2020 Active Cymbalta 60 mg capsule,delayed release RxNorm: 244784 1 Capsule (s) Oral QAM 10/25/2019 No Stop Date Active Cymbalta 30 mg capsule,delayed release RxNorm: 174088 1 Capsule (s) Oral QAM 10/25/2019 No Stop Date Active levothyroxine 25 mcg tablet RxNorm: 236861 1 Tablet(s) Oral QAM 02/201910/24/2019 Inactive MS Contin 100 mg tablet,extended release RxNorm: 234054 1 Tablet(s) Oral two times a day replaces fentanyl 10/25/2019 10/25/2019 Inactive Premarin 0.45 mg tablet RxNorm: 662832 TAKE ONE TABLET BY MOUTH DAILY 10/24/2019 No Stop Date Active Duragesic 100 mcg/hr transdermal patch RxNorm: 805573 2 Application TD Q48H for pain 10/18/2019 10/24/2019 Inactive gabapentin 300 mg capsule RxNorm: 918877 TAKE ONE CAPSULE BY MO UTH TWICE A DAY 10/16/2019 No Stop Date Active cyclobenzaprine 10 mg tablet RxNorm: 616800 TAKE ONE TA BLET BY MOUTH THREE TIMES A DAY NEEDED 09/27/2019 No Stop Date Active ProAir HFA 90 mcg/actuation aerosol inhaler RxNorm: 430696 INHALE ONE PUFF BY MOUTH EVERY 4 HOURS FOR WHEEZING OR FOR SHORTNESS OF BREATH 09/25/2019 No Stop Date Active furosemide 40 mg tablet RxNorm: 609506 1 Tablet(s) Oral QAM as needed 09/25/2019 09/25/2019 Inactive Relistor 150 mg tablet RxNorm: 7697754 TAKE THREE TABLETS BY BENOIT TH DAILY 09/25/2019 10/24/2019 Inactive oxycodone 15 mg tablet RxNorm: 2259407 1 Tablet(s) PO QID as nee ded for pain 09/21/2019 10/24/2019 Inactive Duragesic 100 mcg/hr transdermal patch RxNorm: 399109 2 Application TD Q48H for pain 09/19/2019 10/17/2019 Inactive Daliresp 500 mcg tablet RxNorm: 8091418 1 Tablet(s) Oral QD 019 03/08/2020 Active potassium chloride ER 20 mEq tablet,extended release RxNorm: 968197 TAKE ONE TABLET BY MOUTH DAILY 07/25/2019 01/20/2020 Active Relistor 150 mg tablet RxNorm: 2396257 TAKE THREE TABLETS BY BENOIT TH DAILY 07/25/2019 07/30/2019 Inactive cyclobenzaprine 10 mg tablet RxNorm: 478939 TAKE ONE TA BLET BY MOUTH THREE TIMES A DAY NEEDED 07/25/2019 09/22/2019 Inactive fluoxetine 40 mg capsule RxNorm: 070890 TAKE ONE CAPSULE BY BENOIT TH EVERY MORNING 07/11/2019 10/24/2019 Inactive Medrol (Aníbal) 4 mg tablets in a dose pack RxNorm: 926403 6 Tablet(s) PO QD --then as directed 07/10/2019 07/15/2019 Inactive omeprazole 40 mg capsule,delayed release RxNorm: 253566 1 Capsule(s) PO QD for stomach TAKE ONE CAPSULE BY MOUTH DAILY 07/10/2019 10/24/2019 Inactive Augmentin 875 mg-125 mg tablet RxNorm: 205417 1 Tablet(s) PO BID 07/16/2019 Inactive Trulicity 0.75 mg/0.5 mL subcutaneous pen injector RxNorm: 1 322523 0.75 Milliliter(s) SQ weekly 07/05/2019 10/24/2019 Inactive Compazine 10 mg tablet RxNorm: 507296 TAKE ONE TABLET B Y MOUTH FOUR TIMES A DAY NEEDED FOR NAUSEA 06/20/2019 07/19/2019 Inactive ProAir HFA 90 mcg/actuation aerosol inhaler RxNorm: 623292 INHALE ONE PUFF BY MOUTH EVERY 4 HOURS FOR WHEEZING OR FOR SHORTNESS OF BREATH 06/20/2019 06/23/2019 Inactive Daliresp 500 mcg tablet RxNorm: 1815516 TAKE ONE TABLET BY MOUTH DAILY 06/12/2019 09/10/2019 Inactive enmzzfbg-dxwnfoblg-uusugpozw 3.5 mg/mL-10,000 unit/mL- 1 % ear solution RxNorm: 162736 4 Drop(s) otic (ear) TID to left ear 06/05/2019 10/24/2019 Inac tive furosemide 40 mg tablet RxNorm: 971337 TAKE ONE TABLET BY MOUTH EVERY MORNING 05/26/2019 07/09/2019 Inactive Duragesic 100 mcg/hr transdermal patch RxNorm: 453770 2 Application TD Q48H for pain 05/16/2019 06/14/2019 Inactive oxycodone 15 mg tablet RxNorm: 4925527 1 Tablet(s) PO QID as nee ded for pain 05/10/2019 09/20/2019 Inactive doxycycline hyclate 100 mg capsule RxNorm: 6323681 1 Capsule(s) PO BID 05/03/2019 05/12/2019 Inactive prednisone 20 mg tablet RxNorm: 482946 1 Tablet(s) PO T ID for 3 days then 1 po BID for 3 days then one daily for 3 days 05/03/2019 07/11/2019 Inactiv e Ozempic 0.25 mg or 0.5 mg (2 mg/1.5 mL) subcutaneous p en injector RxNorm: 0557415 0.5 Milligram(s) SQ QW 05/03/2019 07/09/2019 Inactive fluconazole 100 mg tablet RxNorm: 124499 1 Tablet(s) PO QD 05/03/2005/07/2019 Inactive Premarin 0.45 mg tablet RxNorm: 170696 TAKE ONE TABLET BY MOUTH DAILY 05/03/2019 10/23/2019 Inactive potassium chloride ER 20 mEq tablet,extended release RxNorm: 282999 1 Tablet(s) PO QD 04/27/2019 07/25/2019 Inactive potassium chloride ER 20 mEq tablet,extended release RxNorm: 880184 1 Tablet(s) PO QD 04/25/2019 04/26/2019 Inactive Compazine 10 mg tablet RxNorm: 910120 1 Tablet(s) PO QID as nee ded for nausea 04/25/2019 05/04/2019 Inactive ProAir HFA 90 mcg/actuation aerosol inhaler RxNorm: 750858 INHALE ONE PUFF BY MOUTH EVERY 4 HOURS FOR WHEEZING OR FOR SHORTNESS OF BREATH 04/12/2019 06/10/2019 Inactive Medrol (Aníbal) 4 mg tablets in a dose pack RxNorm: 609164 6 Tablet(s) PO QD --then as directed 04/11/2019 04/16/2019 Inactive Symbicort 160 mcg-4.5 mcg/actuation HFA aerosol inhaler RxNo rm: 9123098 2 Puff(s) INH BID 04/10/2019 10/06/2019 Inactive levothyroxine 50 mcg tablet RxNorm: 866806 1 Tablet(s) PO QD 201810/24/2019 Inactive gabapentin 300 mg capsule RxNorm: 156492 1 Capsule(s) PO BID 201810/02/2019 Inactive Symbicort 160 mcg-4.5 mcg/actuation HFA aerosol inhaler RxNo rm: 7090275 2 Puff(s) INH BID 04/06/2019 04/09/2019 Inactive oxycodone 15 mg tablet RxNorm: 0707139 1 Tablet(s) PO QID as nee ded for pain 04/05/2019 05/09/2019 Inactive levothyroxine 50 mcg tablet RxNorm: 975117 1 Tablet(s) PO QD 201804/09/2019 Inactive furosemide 40 mg tablet RxNorm: 129152 TAKE ONE TABLET BY MOUTH EVERY MORNING 03/21/2019 04/19/2019 Inactive levothyroxine 50 mcg tablet RxNorm: 581888 TAKE ONE TABLET BY M OUTH DAILY 03/21/2019 03/27/2019 Inactive Duragesic 100 mcg/hr transdermal patch RxNorm: 279989 2 Application TD Q48H for pain 03/13/2019 04/11/2019 Inactive oxycodone 15 mg tablet RxNorm: 0006712 1 Tablet(s) PO QID as nee ded for pain 03/06/2019 04/04/2019 Inactive Relistor 150 mg tablet RxNorm: 4224650 3 Tablet(s) PO QD 02/28/2019 0 05/28/2019 Inactive cyclobenzaprine 10 mg tablet RxNorm: 122397 1 Tablet(s) PO TID as needed 02/28/2019 05/28/2019 Inactive phentermine 37.5 mg tablet RxNorm: 117537 1 Tablet(s) PO QAM 201803/15/2019 Inactive Duragesic 100 mcg/hr transdermal patch RxNorm: 585754 2 Application TD Q48H for pain 02/09/2019 03/10/2019 Inactive Daliresp 500 mcg tablet RxNorm: 3337642 TAKE ONE TABLET BY MOUTH DAILY 01/31/2019 05/30/2019 Inactive Premarin 0.45 mg tablet RxNorm: 012522 1 Tablet(s) PO QD 01/31/2019 0 04/30/2019 Inactive fluoxetine 40 mg capsule RxNorm: 893287 Capsule(s) TAKE ONE CAPSULE BY MOUTH EVERY MORNING 01/31/2019 04/30/2019 Inactive levothyroxine 50 mcg tablet RxNorm: 498127 1 Tablet(s) PO QD 201804/10/2019 Inactive follow up in 3 weeks levothyroxine 50 mcg tablet RxNorm: 109392 1 Tablet(s) PO QD 201801/25/2019 Inactive follow up in 3 weeks potassium chloride ER 20 mEq tablet,extended release RxNorm: 825821 2 Tablet(s) PO BID 01/23/2019 02/14/2019 Inactive Synthroid 50 mcg tablet RxNorm: 571321 TAKE ONE TABLET BY MOUTH DAILY 01/16/2019 10/24/2019 Inactive potassium chloride ER 20 mEq tablet,extended release RxNorm: 794182 2 Tablet(s) PO BID 01/04/2019 01/22/2019 Inactive ProAir HFA 90 mcg/actuation aerosol inhaler RxNorm: 091791 INHALE ONE PUFF BY MOUTH EVERY 4 HOURS FOR WHEEZING OR SHORTNESS OF BREATH 01/04/201902/20 Inactive Request already responded to by other me ans (e.g. phone or fax) ProAir HFA 90 mcg/actuation aerosol inhaler RxNorm: 7931268 INHALE ONE PUFF BY MOUTH EVERY 4 HOURS FOR WHEEZING OR SHORTNESS OF BREATH 01/02/201912/23 Inactive gabapentin 300 mg capsule RxNorm: 869820 TAKE ONE CAPSULE BY MO UTH TWICE A DAY 12/30/2018 04/06/2019 Inactive furosemide 40 mg tablet RxNorm: 392467 1 Tablet(s) PO QAM 12/26/2018 02/23/2019 Inactive Compazine 10 mg tablet RxNorm: 245377 1 Tablet(s) PO QID as nee ded for nausea 12/07/2018 12/16/2018 Inactive metolazone 2.5 mg tablet RxNorm: 216745 TAKE ONE TABLET BY MOUT H EVERY MORNING 12/05/2018 01/03/2019 Inactive metformin ER 500 mg tablet,extended release 24 hr RxNorm: 86 0975 TAKE ONE TABLET BY MOUTH DAILY 12/05/2018 04/10/2019 Inactive Synthroid 50 mcg tablet RxNorm: 826057 1 Tablet(s) PO QD 11/25/2018 0 01/03/2019 Inactive DC any other synthroid strengths. Should be 50mcg only cyclobenzaprine 10 mg tablet RxNorm: 930640 TAKE ONE TA BLET BY MOUTH THREE TIMES A DAY NEEDED 11/09/2018 02/06/2019 Inactive metolazone 2.5 mg tablet RxNorm: 612860 1 Tablet(s) PO QAM repl aces 5mg dose 11/02/2018 12/01/2018 Inactive potassium chloride ER 20 mEq tablet,extended release RxNorm: 766116 2 Tablet(s) PO QD 2018 01/02/2019 Inactive Compazine 10 mg tablet RxNorm: 821595 1 Tablet(s) PO QID as nee ded for nausea 10/18/2018 12/07/2018 Inactive furosemide 40 mg tablet RxNorm: 652148 1 Tablet(s) PO QAM 10/12/2018 12/10/2018 Inactive ondansetron 8 mg disintegrating tablet RxNorm: 837541 1 Tablet(s) PO Q6H as needed 10/11/2018 10/17/2018 Inactive scopolamine 1 mg over 3 days transdermal patch RxNorm: 89767 2 1 Application TD behind ear. Take off after three days 10/11/2018 01/02/2019 Inactive furosemide 40 mg tablet RxNorm: 685453 1 Tablet(s) PO QAM 10/10/2018 12/26/2018 Inactive metolazone 5 mg tablet RxNorm: 150003 1 Tablet(s) PO QAM 10/06/2018 1 01/03/2018 Inactive metolazone 5 mg tablet RxNorm: 285994 1 Tablet(s) PO QAM 10/06/2018 1 12/05/2017 Inactive Xtampza ER 36 mg capsule sprinkle RxNorm: 7734546 1 Capsule(s) P O BID 10/05/2018 01/02/2019 Inactive Xtampza ER 36 mg capsule sprinkle RxNorm: 6200175 1 Capsule(s) P O BID 10/05/2018 02/12/2019 Inactive omeprazole 40 mg capsule,delayed release RxNorm: 297079 TAKE ONE CAPSULE BY MOUTH DAILY 10/03/2018 12/31/2018 Inactive Duragesic 100 mcg/hr transdermal patch RxNorm: 467033 2 Application TD Q48H for pain 09/30/2018 10/29/2018 Inactive Synthroid 50 mcg tablet RxNorm: 195302 1 Tablet(s) PO QD 09/29/2018 0 11/25/2018 Inactive DC any other synthroid strengths. Should be 50mcg only Synthroid 50 mcg tablet RxNorm: 278653 1 Tablet(s) PO QD 09/29/2018 1 11/28/2017 Inactive furosemide 40 mg tablet RxNorm: 426137 2 Tablet(s) PO Q AM for 1 week then every other day for 2 weeks 09/27/2018 10/12/2018 Inactive fluoxetine 40 mg capsule RxNorm: 866879 2 Capsule(s) PO QD 09/27/20 18 10/17/2018 Inactive potassium chloride ER 20 mEq tablet,extended release RxNorm: 654170 2 Tablet(s) PO QD for 1 week then every other day for 2 weeks 09/27/2018 2018 Inactive ProAir HFA 90 mcg/actuation aerosol inhaler RxNorm: 4320832 INHALE ONE PUFF BY MOUTH EVERY 4 HOURS FOR WHEEZING OR SHORTNESS OF BREATH 09/26/201811/23 Inactive Synthroid 75 mcg tablet RxNorm: 277288 1 Tablet(s) PO QD 09/09/2018 1 Inactive Synthroid 75 mcg tablet RxNorm: 350064 1 Tablet(s) PO QD 09/09/2018 1 11/28/2017 Inactive furosemide 40 mg tablet RxNorm: 427395 1 Tablet(s) PO QD 09/06/2018 1 Inactive potassium chloride ER 20 mEq tablet,extended release RxNorm: 247475 1 Tablet(s) PO QD 09/06/2018 09/19/2018 Inactive Duragesic 100 mcg/hr transdermal patch RxNorm: 301762 2 Application TD Q48H for pain 08/30/2018 09/28/2018 Inactive gabapentin 300 mg capsule RxNorm: 959470 TAKE ONE CAPSULE BY [facility] TWICE A DAY 08/23/2018 12/20/2018 Inactive Daliresp 500 mcg tablet RxNorm: 0246387 TAKE ONE TABLET BY MOUTH DAILY 08/23/2018 01/19/2019 Inactive Pulmicort 1 mg/2 mL suspension for nebulization RxNorm: 6168 19 USE ONE VIAL VIA NEBULIZER BY MOUTH TWICE A DAY 08/23/2018 07/11/2019 Inactive Synthroid 88 mcg tablet RxNorm: 093618 1 Tablet(s) PO QD 08/19/2018 Inactive Medrol (Aníbal) 4 mg tablets in a dose pack RxNorm: 082755 Tablet(s) PO take as directed 08/16/2018 09/05/2018 Inactive Relistor 150 mg tablet RxNorm: 2663980 3 Tablet(s) PO QD 08/16/2018 1 Inactive Zithromax Z-Aníbal 250 mg tablet RxNorm: 675427 Tablet(s) PO take as directed 08/16/2018 09/05/2018 Inactive cyclobenzaprine 10 mg tablet RxNorm: 249966 1 Tablet(s) PO TID as needed 08/16/2018 11/08/2018 Inactive Synthroid 88 mcg tablet RxNorm: 366183 1 Tablet(s) PO Q D NEEDS UPDATED LABS BEFORE FURTHER REFILLS 08/08/2018 08/19/2018 Inactive Premarin 0.45 mg tablet RxNorm: 411222 1 Tablet(s) PO QD 08/03/2018 0 01/31/2019 Inactive fluoxetine 20 mg capsule RxNorm: 272607 TAKE ONE CAPSULE BY BENOIT TH DAILY 08/03/2018 09/26/2018 Inactive Xtampza ER 36 mg capsule sprinkle RxNorm: 6899557 1 Capsule(s) P O BID 08/03/2018 09/01/2018 Inactive metformin ER 500 mg tablet,extended release 24 hr RxNorm: 86 0975 1 Tablet(s) PO QD 08/03/2018 10/31/2018 Inactive Symbicort 160 mcg-4.5 mcg/actuation HFA aerosol inhaler RxNo rm: 2545919 2 Puff(s) INH BID 08/03/2018 01/29/2019 Inactive Duragesic 100 mcg/hr transdermal patch RxNorm: 650515 2 Application TD Q48H for pain 07/29/2018 08/27/2018 Inactive ProAir HFA 90 mcg/actuation aerosol inhaler RxNorm: 534049 INHALE TWO PUFFS BY MOUTH EVERY 4 HOURS FOR WHEEZING OR SHORTNESS OF BREATH 07/27/201802/2018 Inactive Relistor 150 mg tablet RxNorm: 8260999 3 Tablet(s) PO QD 07/20/2018 0 08/15/2018 Inactive metformin ER 500 mg tablet,extended release 24 hr RxNorm: 86 0975 TAKE ONE TABLET BY MOUTH DAILY 07/08/2018 08/02/2018 Inactive fluoxetine 40 mg capsule RxNorm: 163185 TAKE ONE CAPSULE BY BENOIT TH EVERY MORNING 07/08/2018 10/05/2018 Inactive Xtampza ER 18 mg capsule sprinkle RxNorm: 4241359 1 Capsule(s) P O BID 07/08/2018 08/02/2018 Inactive Relistor 150 mg tablet RxNorm: 9748673 3 Tablet(s) PO QD 07/08/2018 0 07/12/2018 Inactive Synthroid 88 mcg tablet RxNorm: 282404 1 Tablet(s) PO Q D NEEDS UPDATED LABS BEFORE FURTHER REFILLS 06/23/2018 07/07/2018 Inactive fluoxetine 40 mg capsule RxNorm: 141542 TAKE ONE CAPSULE BY BENOIT TH EVERY MORNING 06/15/2018 09/26/2018 Inactive orphenadrine citrate ER 100 mg tablet,extended release RxNor m: 392971 TAKE ONE TABLET BY MOUTH TWICE A DAY FOR MUSCLE SPASM 06/15/2018 08/15/2018 [place] [facility] Duragesic 100 mcg/hr transdermal patch RxNorm: 122397 2 Application TD Q48H for pain 05/30/2018 06/28/2018 Inactive ProAir HFA 90 mcg/actuation aerosol inhaler RxNorm: 060452 INHALE TWO PUFFS BY MOUTH EVERY 4 HOURS FOR WHEEZING OR SHORTNESS OF BREATH 05/19/201803/2018 Inactive Chantix Continuing Month Box 1 mg tablet RxNorm: 133455 TAKE ONE TABLET BY MOUTH TWICE A DAY 05/19/2018 08/15/2018 Inactive oxycodone 10 mg tablet RxNorm: 0257865 1-2 Tablet(s) PO QID as n eeded for pain 05/19/2018 07/07/2018 Inactive gabapentin 300 mg capsule RxNorm: 423558 TAKE ONE CAPSULE BY MO [facility] TWICE A DAY 05/18/2018 07/16/2018 Inactive ProAir HFA 90 mcg/actuation aerosol inhaler RxNorm: 602305 INHALE TWO PUFFS BY MOUTH EVERY 4 HOURS FOR WHEEZING OR SHORTNESS OF BREATH 05/04/201804/23 Inactive Augmentin 500 mg-125 mg tablet RxNorm: 307473 1 Tablet(s) PO BID 05/03/2018 Inactive oxycodone 10 mg tablet RxNorm: 3846396 1-2 Tablet(s) PO QID as n eeded for pain 04/21/2018 05/18/2018 Inactive Synthroid 88 mcg tablet RxNorm: 323387 1 Tablet(s) PO QD 04/15/2018 0 08/08/2018 Inactive Symbicort 160 mcg-4.5 mcg/actuation HFA aerosol inhaler RxNo rm: 9071184 2 Puff(s) INH BID 04/15/2018 04/10/2019 Inactive Premarin 0.45 mg tablet RxNorm: 695056 1 Tablet(s) PO QD 04/15/2018 0 08/03/2018 Inactive ProAir HFA 90 mcg/actuation aerosol inhaler RxNorm: 543495 2 Puff(s) INH Q4H prn for wheezing or shortness of breath 04/15/2018 05/03/2018 Inactive metformin ER 500 mg tablet,extended release 24 hr RxNorm: 86 0975 1 Tablet(s) PO QD 04/11/2018 07/07/2018 Inactive omeprazole 40 mg capsule,delayed release RxNorm: 333082 TAKE ONE CAPSULE BY MOUTH DAILY 04/10/2018 06/08/2018 Inactive Synthroid 88 mcg tablet RxNorm: 149987 1 Tablet(s) PO QD 04/04/2018 0 04/14/2018 Inactive Synthroid 88 mcg tablet RxNorm: 230951 1 Tablet(s) PO QD 04/04/2018 0 04/03/2018 Inactive orphenadrine citrate ER 100 mg tablet,extended release RxNor m: 707809 1 Tablet(s) PO BID for muscle spasm 04/04/2018 05/03/2018 Inactive metformin ER 500 mg tablet,extended release 24 hr RxNorm: 86 0975 1 Tablet(s) PO QD NEEDS UPDATED LABS 03/31/2018 04/11/2018 Inactive doxycycline hyclate 100 mg capsule RxNorm: 9906810 1 Capsule(s) PO BID 03/31/2018 04/09/2018 Inactive prednisone 20 mg tablet RxNorm: 863471 3 Tablet(s) PO T ID for 3 days then 1 po BID for 3 days then one daily for 3 days 03/31/2018 07/06/2018 Inactiv e Chantix Continuing Month Box 1 mg tablet RxNorm: 562380 TAKE ONE TABLET BY MOUTH TWICE A DAY 03/25/2018 03/30/2018 Inactive oxycodone 10 mg tablet RxNorm: 6334974 1-2 Tablet(s) PO QID as n eeded for pain 03/21/2018 04/20/2018 Inactive Daliresp 500 mcg tablet RxNorm: 6944839 1 Tablet(s) PO QD 03/15/2018 08/22/2018 Inactive metformin ER 500 mg tablet,extended release 24 hr RxNorm: 86 0975 1 Tablet(s) PO QD NEEDS UPDATED LABS 03/14/2018 03/31/2018 Inactive nystatin 100,000 unit/mL oral suspension RxNorm: 634495 5 [place] liter(s) PO QID 03/02/2018 03/15/2018 Inactive nystatin 100,000 unit/mL oral suspension RxNorm: 796382 5 [place]io liter(s) PO QID 03/02/2018 03/01/2018 Inactive oxycodone 10 mg tablet RxNorm: 7428765 1-2 Tablet(s) PO QID as n eeded for pain 02/16/2018 03/20/2018 Inactive fluoxetine 20 mg capsule RxNorm: 840119 1 Capsule(s) PO QD 02/15/20 18 08/02/2018 Inactive metformin ER 500 mg tablet,extended release 24 hr RxNorm: 86 0975 1 Tablet(s) PO QD Needs updated labs 02/14/2018 03/14/2018 Inactive cefdinir 300 mg capsule RxNorm: 138743 1 Capsule(s) PO BID 01/27/20 18 02/04/2018 Inactive orphenadrine citrate ER 100 mg tablet,extended release RxNor m: 485827 1 Tablet(s) PO BID for muscle spasm 01/26/2018 04/04/2018 Inactive gabapentin 300 mg capsule RxNorm: 521328 1 Capsule(s) PO BID 201704/17/2018 Inactive oxycodone 10 mg tablet RxNorm: 3439683 1-2 Tablet(s) PO QID as n eeded for pain 01/17/2018 02/15/2018 Inactive Duragesic 100 mcg/hr transdermal patch RxNorm: 092510 2 Application TD Q48H for pain 01/17/2018 02/15/2018 Inactive gabapentin 300 mg capsule RxNorm: 249150 TAKE ONE CAPSULE BY MO ARH TWICE A DAY 12/20/2017 01/18/2018 Inactive fluoxetine 40 mg capsule RxNorm: 289457 TAKE ONE CAPSULE BY BENOIT TH EVERY MORNING 12/15/2017 03/14/2018 Inactive OneTouch Ultra Test strips RxNorm: TEST DAILY 11/04/2017 02/01/2018 Inactive gabapentin 300 mg capsule RxNorm: 366787 1 Capsule(s) P O TID replaces BID dosing 10/26/2017 02/22/2018 Inactive oxycodone 10 mg tablet RxNorm: 8963188 1-2 Tablet(s) PO QID as n eeded for pain 10/18/2017 01/16/2018 Inactive Duragesic 100 mcg/hr transdermal patch RxNorm: 624442 2 Application TD Q48H for pain 10/18/2017 11/16/2017 Inactive gabapentin 300 mg capsule RxNorm: 144427 1 Capsule(s) PO BID 201610/25/2017 Inactive Abilify 5 mg tablet RxNorm: 457371 1 Tablet(s) PO QAM 09/23/201702/2017 Inactive gabapentin 300 mg capsule RxNorm: 819224 1 Capsule(s) PO BID 201610/17/2017 Inactive oxycodone 10 mg tablet RxNorm: 1637087 1-2 Tablet(s) PO QID as n eeded for pain 09/15/2017 10/17/2017 Inactive Duragesic 100 mcg/hr transdermal patch RxNorm: 627187 2 Application TD Q48H for pain 09/15/2017 10/14/2017 Inactive Duragesic 100 mcg/hr transdermal patch RxNorm: 862960 2 Application TD Q48H for pain 09/15/2017 10/24/2019 Inactive oxycodone 10 mg tablet RxNorm: 2624253 1-2 Tablet(s) PO QID as n eeded for pain 09/15/2017 08/15/2018 Inactive Daliresp 500 mcg tablet RxNorm: 4819124 1 Tablet(s) PO QD 09/06/2017 03/15/2018 Inactive Ventolin HFA 90 mcg/actuation aerosol inhaler RxNorm: 641637 2 Puff(s) INH Q4H as needed 09/02/2017 05/19/2018 Inactive oxycodone 10 mg tablet RxNorm: 5980984 1-2 Tablet(s) PO QID as n eeded for pain 08/17/2017 09/14/2017 Inactive Duragesic 100 mcg/hr transdermal patch RxNorm: 167936 2 Application TD Q48H for pain 08/17/2017 09/14/2017 Inactive fluoxetine 40 mg capsule RxNorm: 463306 Capsule(s) TAKE ONE CAPSULE BY MOUTH EVERY MORNING 08/17/2017 12/14/2017 Inactive Pulmicort 1 mg/2 mL suspension for nebulization RxNorm: 6168 19 1 Unit Dose INH BID Dx: COPD (J44.9) 08/16/2017 08/22/2018 Inactive gabapentin 300 mg capsule RxNorm: 954561 1 Capsule(s) PO QHS 201610/18/2017 Inactive fluoxetine 20 mg capsule RxNorm: 688692 1 Capsule(s) PO QD 08/12/20 17 02/14/2018 Inactive Abilify 2 mg tablet RxNorm: 867611 1 Tablet(s) PO QD TA KE ONE TABLET BY MOUTH DAILY 08/12/2017 10/25/2017 Inactive metformin ER 500 mg tablet,extended release 24 hr RxNorm: 86 0975 1 Tablet(s) PO QD 08/10/2017 02/14/2018 Inactive Synthroid 112 mcg tablet RxNorm: 164943 1 Tablet(s) PO QD 08/10/2017 04/15/2018 Inactive oxycodone 10 mg tablet RxNorm: 9741552 1-2 Tablet(s) PO QID as n eeded for pain 07/19/2017 08/16/2017 Inactive Duragesic 100 mcg/hr transdermal patch RxNorm: 232626 2 Application TD Q48H for pain 07/19/2017 08/16/2017 Inactive Ventolin HFA 90 mcg/actuation aerosol inhaler RxNorm: 775899 2 Puff(s) INH Q4H as needed 07/12/2017 09/02/2017 Inactive Abilify 2 mg tablet RxNorm: 717561 1 Tablet(s) PO QD TA KE ONE TABLET BY MOUTH DAILY 07/06/2017 08/11/2017 Inactive gabapentin 800 mg tablet RxNorm: 029652 1 Tablet(s) PO TID 06/22/20 17 07/05/2017 Inactive Chantix Starting Month Box 0.5 mg (11)-1 mg (42) table ts in dose pack RxNorm: 405552 TAKE BY MOUTH INSTRUCTED - PER PACKAGE INSTRUCTIONS 06/0707/04/2017 Inactive Ventolin HFA 90 mcg/actuation aerosol inhaler RxNorm: 844078 2 Puff(s) INH Q4H as needed 05/26/2017 07/12/2017 Inactive Duragesic 100 mcg/hr transdermal patch RxNorm: 672872 2 Application TD Q48H for pain 05/19/2017 06/17/2017 Inactive oxycodone 10 mg tablet RxNorm: 0766459 1-2 Tablet(s) PO QID as n eeded for pain 05/19/2017 07/18/2017 Inactive Abilify 2 mg tablet RxNorm: 162526 TAKE ONE TABLET BY MOUTH DAILY 0 05/10/2017 07/05/2017 Inactive Synthroid 112 mcg tablet RxNorm: 692087 1 Tablet(s) PO QD 05/06/2017 08/10/2017 Inactive metformin ER 500 mg tablet,extended release 24 hr RxNorm: 86 0975 1 Tablet(s) PO QD 05/06/2017 08/10/2017 Inactive Topamax 100 mg tablet RxNorm: 304328 1 Tablet(s) PO QHS 05/06/2017 Inactive Premarin 0.45 mg tablet RxNorm: 065706 1 Tablet(s) PO QD 05/06/2017 0 04/15/2018 Inactive orphenadrine citrate ER 100 mg tablet,extended release RxNor m: 308235 1 Tablet(s) PO TID for muscle spasm--replaces methocarbamol 04/29/2017 Inactive oxycodone 10 mg tablet RxNorm: 7923480 1-2 Tablet(s) PO QID as n eeded for pain 04/21/2017 05/18/2017 Inactive Duragesic 100 mcg/hr transdermal patch RxNorm: 289978 2 Application TD Q48H for pain 04/21/2017 05/18/2017 Inactive fluoxetine 40 mg capsule RxNorm: 754735 Capsule(s) TAKE ONE CAPSULE BY MOUTH EVERY MORNING 04/20/2017 08/17/2017 Inactive Ventolin HFA 90 mcg/actuation aerosol inhaler RxNorm: 740306 2 Puff(s) INH Q4H as needed 04/05/2017 05/26/2017 Inactive Symbicort 160 mcg-4.5 mcg/actuation HFA aerosol inhaler RxNo rm: 7343042 2 Puff(s) INH BID 03/30/2017 04/15/2018 Inactive Spiriva with HandiHaler 18 mcg and inhalation capsules RxNor m: 458184 1 Capsule(s) INH QD USING HANDIHALER 03/30/2017 02/12/2019 Inactive Duragesic 100 mcg/hr transdermal patch RxNorm: 854147 2 Application TD Q48H for pain 03/18/2017 04/16/2017 Inactive oxycodone 10 mg tablet RxNorm: 5340698 1-2 Tablet(s) PO QID as n eeded for pain 03/18/2017 04/20/2017 Inactive metformin ER 500 mg tablet,extended release 24 hr RxNorm: 86 0975 Tablet(s) TAKE ONE TABLET BY MOUTH DAILY 03/01/2017 05/06/2017 Inactive Premarin 0.45 mg tablet RxNorm: 709188 Tablet(s) TAKE ONE TABLE T BY MOUTH DAILY 03/01/2017 05/06/2017 Inactive Synthroid 112 mcg tablet RxNorm: 383484 Tablet(s) TAKE ONE TABLET BY MOUTH DAILY 03/01/2017 05/06/2017 Inactive Daliresp 500 mcg tablet RxNorm: 3299183 1 Tablet(s) PO QD 03/01/2017 09/06/2017 Inactive 16.2 mg-0.1037 mg-0.0194 mg tablet RxNorm: 4029557 Tablet(s) PO PRN for gas and cramping 02/23/2017 04/28/2017 Inactive TAKE TWO TABLET S BY MOUTH THREE TIMES A DAY NEEDED FOR GAS AND CRAMPING gabapentin 800 mg tablet RxNorm: 692833 1 Tablet(s) PO TID repl aces 600mg 02/23/2017 04/28/2017 Inactive Duragesic 100 mcg/hr transdermal patch RxNorm: 364263 2 Application TD Q48H for pain 02/17/2017 03/17/2017 Inactive fluoxetine 20 mg capsule RxNorm: 099492 1 Capsule(s) PO QD 02/18/20 17 08/12/2017 Inactive oxycodone 20 mg tablet RxNorm: 3613558 1 Tablet(s) PO QID as nee ded for pain 02/17/2017 03/17/2017 Inactive Ventolin HFA 90 mcg/actuation aerosol inhaler RxNorm: 489505 INHALE TWO PUFFS BY MOUTH EVERY 4 HOURS NEEDED 02/15/2017 04/05/2017 Inactive Silvadene 1 % topical cream RxNorm: 018915 1 Application TOP BI D to burn area 02/01/2017 09/22/2017 Inactive Topamax 100 mg tablet RxNorm: 208483 TAKE ONE TABLET BY MOUTH EVERY NIGHT AT BEDTIME 01/29/2017 05/06/2017 Inactive Chantix Starting Month Box 0.5 mg (11)-1 mg (42) table ts in dose pack RxNorm: 092275 Tablet(s) PO as directed 01/29/2017 06/01/2017 Inactive Abilify 2 mg tablet RxNorm: 531316 TAKE ONE TABLET BY MOUTH DAILY 0 01/26/2017 04/25/2017 Inactive Chantix Starting Month Box 0.5 mg (11)-1 mg (42) table ts in dose pack RxNorm: 662260 Tablet(s) PO as directed 01/20/2017 01/28/2017 Inactive gabapentin 600 mg tablet RxNorm: 784529 1 Tablet(s) PO TID 01/21/20 17 02/22/2017 Inactive Chantix Continuing Month Box 1 mg tablet RxNorm: 407810 1 Table t(s) PO BID 12/31/2016 06/01/2017 Inactive Spiriva with HandiHaler 18 mcg and inhalation capsules RxNor m: 917692 INHALE THE ENTIRE CONTENTS OF 1 CAPSULE ONCE A DAY USING HANDIHALER 12/31/201607/2017 Inactive Synthroid 112 mcg tablet RxNorm: 648684 TAKE ONE TABLET BY MOUT H DAILY 12/30/2016 03/01/2017 Inactive metformin ER 500 mg tablet,extended release 24 hr RxNorm: 86 0975 TAKE ONE TABLET BY MOUTH DAILY 12/30/2016 03/01/2017 Inactive Premarin 0.45 mg tablet RxNorm: 703897 TAKE ONE TABLET BY MOUTH DAILY 12/30/2016 03/01/2017 Inactive omeprazole 40 mg capsule,delayed release RxNorm: 043191 TAKE ONE CAPSULE BY MOUTH DAILY 12/30/2016 01/25/2018 Inactive Ventolin HFA 90 mcg/actuation aerosol inhaler RxNorm: 168998 INHALE TWO PUFFS BY MOUTH EVERY 4 HOURS NEEDED 12/28/2016 02/13/2017 Inactive fluoxetine 40 mg capsule RxNorm: 357131 TAKE ONE CAPSULE BY BENOIT TH EVERY MORNING 12/15/2016 04/20/2017 Inactive Chantix Continuing Month Box 1 mg tablet RxNorm: 076877 TAKE ONE TABLET BY MOUTH TWICE A DAY 12/04/2016 12/31/2016 Inactive doxycycline hyclate 100 mg capsule RxNorm: 2038895 1 Capsule(s) PO BID 12/01/2016 12/07/2016 Inactive Levaquin 750 mg tablet RxNorm: 297069 1 Tablet(s) PO QD 12/01/2016 Inactive Abilify 2 mg tablet RxNorm: 271827 TAKE ONE TABLET BY MOUTH DAILY 0 11/25/2016 11/30/2016 Inactive Ventolin HFA 90 mcg/actuation aerosol inhaler RxNorm: 667479 INHALE TWO PUFFS BY MOUTH EVERY 4 HOURS NEEDED 11/02/2016 12/19/2016 Inactive Chantix Continuing Month Box 1 mg tablet RxNorm: 150692 Tablet(s) PO as directed 10/30/2016 12/03/2016 Inactive Symbicort 160 mcg-4.5 mcg/actuation HFA aerosol inhaler RxNo rm: 6449434 INHALE TWO PUFFS TWO TIMES A DAY 10/30/2016 03/30/2017 Inactive Abilify 2 mg tablet RxNorm: 721062 1 Tablet(s) PO QD 10/27/201611/24 Inactive amoxicillin 500 mg capsule RxNorm: 524889 1 Capsule(s) PO TID 10/1410/23/2016 Inactive amoxicillin 500 mg capsule RxNorm: 462120 1 Capsule(s) PO TID 10/1410/13/2016 Inactive Synthroid 112 mcg tablet RxNorm: 318748 TAKE ONE TABLET BY MOUT H DAILY 09/28/2016 12/29/2016 Inactive Topamax 100 mg tablet RxNorm: 162146 TAKE ONE TABLET BY MOUTH EVERY NIGHT AT BEDTIME 09/28/2016 01/28/2017 Inactive Premarin 0.45 mg tablet RxNorm: 353930 TAKE ONE TABLET BY MOUTH DAILY 09/28/2016 12/29/2016 Inactive metformin ER 500 mg tablet,extended release 24 hr RxNorm: 86 0975 TAKE ONE TABLET BY MOUTH DAILY 09/28/2016 12/29/2016 Inactive Ventolin HFA 90 mcg/actuation aerosol inhaler RxNorm: 777496 INHALE TWO PUFFS BY MOUTH EVERY 4 HOURS NEEDED 09/22/2016 10/23/2016 Inactive Pulmicort 1 mg/2 mL suspension for nebulization RxNorm: 6168 19 1 Unit Dose INH BID Dx: COPD (J44.9) 09/10/2016 08/16/2017 Inactive Pulmicort 1 mg/2 mL suspension for nebulization RxNorm: 6168 19 1 Unit Dose INH BID 09/10/2016 09/09/2016 Inactive Brovana 15 mcg/2 mL solution for nebulization RxNorm: 724616 1 Unit Dose INH BID Dx: COPD (J44.9) 09/10/2016 01/25/2018 Inactive Brovana 15 mcg/2 mL solution for nebulization RxNorm: 768089 1 Unit Dose INH BID 09/10/2016 09/09/2016 Inactive ipratropium-albuterol 0.5 mg-3 mg(2.5 mg base)/3 mL ne bulization soln RxNorm: 4392709 1 Unit Dose INH Q4H as needed Dx: COPD (J44.9) 09/10/2016 0 02/12/2019 Inactive orphenadrine citrate ER 100 mg tablet,extended release RxNor m: 665136 1 Tablet(s) PO BID for muscle spasm--replaces methocarbamol 09/09/2016 Inactive Chantix Continuing Month Box 1 mg tablet RxNorm: 854663 Tablet(s) PO as directed 09/09/2016 10/30/2016 Inactive orphenadrine citrate ER 100 mg tablet,extended release RxNor m: 185760 1 Tablet(s) PO BID for muscle spasm 09/09/2016 09/08/2016 Inactive Spiriva with HandiHaler 18 mcg and inhalation capsules RxNor m: 307447 INHALE THE ENTIRE CONTENTS OF 1 CAPSULE ONCE A DAY USING HANDIHALER 09/01/201605/2017 Inactive Daliresp 500 mcg tablet RxNorm: 1193799 1 Tablet(s) PO QD 08/27/2016 03/01/2017 Inactive prednisone 20 mg tablet RxNorm: 656852 3 Tablet(s) PO T ID for 3 days then 1 po BID for 3 days then one daily for 3 days 08/26/2016 04/28/2017 Inactiv e Wellbutrin XL 300 mg 24 hr tablet, extended release RxNorm: 654573 TAKE ONE TABLET BY MOUTH EVERY MORNING 07/29/2016 10/26/2016 Inactive gabapentin 600 mg tablet RxNorm: 601270 1 Tablet(s) PO BID 06/26/20 16 12/22/2016 Inactive fluoxetine 40 mg capsule RxNorm: 917954 TAKE ONE CAPSULE BY BENOIT TH EVERY MORNING 06/24/2016 11/20/2016 Inactive Duragesic 100 mcg/hr transdermal patch RxNorm: 219923 2 Application TD Q48H for pain 06/05/2016 07/04/2016 Inactive oxycodone 10 mg tablet RxNorm: 6749587 1-2 Tablet(s) PO QID as n eeded for pain 06/05/2016 03/17/2017 Inactive Belladonna-Phenobarbital 48 mg tablet,extended release RxNor m: 2 Tablet(s) PO TID 06/05/2016 01/19/2017 Inactive Premarin 0.45 mg tablet RxNorm: 058263 TAKE ONE TABLET BY MOUTH DAILY 05/27/2016 09/23/2016 Inactive Topamax 100 mg tablet RxNorm: 956318 TAKE ONE TABLET BY MOUTH EVERY NIGHT AT BEDTIME 05/27/2016 09/27/2016 Inactive Synthroid 112 mcg tablet RxNorm: 374984 TAKE ONE TABLET BY MOUT H DAILY 05/27/2016 09/23/2016 Inactive metformin ER 500 mg tablet,extended release 24 hr RxNorm: 86 0975 TAKE ONE TABLET BY MOUTH DAILY 05/27/2016 09/23/2016 Inactive Symbicort 160 mcg-4.5 mcg/actuation HFA aerosol inhaler RxNo rm: 8157096 INHALE TWO PUFFS TWO TIMES A DAY 05/27/2016 10/23/2016 Inactive Ventolin HFA 90 mcg/actuation aerosol inhaler RxNorm: 670716 INHALE TWO PUFFS BY MOUTH EVERY 4 HOURS NEEDED 05/21/2016 07/07/2016 Inactive omeprazole 40 mg capsule,delayed release RxNorm: 833806 1 Capsu le(s) PO QD 05/06/2016 08/03/2016 Inactive metformin ER 500 mg tablet,extended release 24 hr RxNorm: 86 0975 TAKE ONE TABLET BY MOUTH DAILY 04/23/2016 05/22/2016 Inactive methocarbamol 750 mg tablet RxNorm: 723805 2 Tablet(s) PO TID as needed for muscle spasm 04/23/2016 09/08/2016 Inactive Synthroid 112 mcg tablet RxNorm: 556048 TAKE ONE TABLET BY MOUT H DAILY 04/23/2016 05/22/2016 Inactive Spiriva with HandiHaler 18 mcg and inhalation capsules RxNor m: 050807 INHALE THE ENTIRE CONTENTS OF 1 CAPSULE ONCE A DAY USING HANDIHALER 04/09/201608/2016 Inactive Diflucan 100 mg tablet RxNorm: 210097 1 Tablet(s) PO QD 04/08/2016 Inactive doxycycline hyclate 100 mg capsule RxNorm: 2626722 1 Capsule(s) PO BID 04/08/2016 04/17/2016 Inactive doxycycline hyclate 100 mg capsule RxNorm: 2865795 1 Capsule(s) PO BID 04/08/2016 04/07/2016 Inactive Diflucan 100 mg tablet RxNorm: 706844 1 Tablet(s) PO QD 04/08/2016 Inactive ondansetron HCl 4 mg tablet RxNorm: 270023 1 Tablet(s) PO Q4H as needed for nausea and vomiting 04/08/2016 09/22/2017 Inactive gabapentin 600 mg tablet RxNorm: 286184 TAKE ONE TABLET BY MOUT H TWICE A DAY 03/24/2016 06/25/2016 Inactive Synthroid 112 mcg tablet RxNorm: 453160 TAKE ONE TABLET BY MOUT H DAILY 02/25/2016 04/22/2016 Inactive Levaquin 500 mg tablet RxNorm: 281171 1 Tablet(s) PO QD 01/23/2016 Inactive prednisone 20 mg tablet RxNorm: 384643 1 Tablet(s) PO T ID for 3 days then 1 po BID for 3 days then one daily for 3 days 01/23/2016 08/25/2016 Inactiv e eVoter Ultra Test strips RxNorm: TEST BLOOD SUGAR ONCE DAILY 250.00 01/09/2016 11/04/2017 Inactive methocarbamol 750 mg tablet RxNorm: 491299 2 Tablet(s) PO TID as needed for muscle spasm 01/09/2016 04/23/2016 Inactive lactulose 10 gram/15 mL oral solution RxNorm: 658954 [address](s) PO QD 01/09/2016 09/22/2017 Inactive TAKE 1 TABLESPOON BY MOUTH ONCE DAILY metformin ER 500 mg tablet,extended release 24 hr RxNorm: 86 0975 1 Tablet(s) PO QD 12/26/2015 04/22/2016 Inactive fluoxetine 20 mg capsule RxNorm: 161294 1 Capsule(s) PO QD 12/23/19 16 06/19/2016 Inactive Premarin 0.45 mg tablet RxNorm: 729821 TAKE ONE TABLET BY MOUTH DAILY 12/23/2015 05/20/2016 Inactive fluoxetine 40 mg capsule RxNorm: 012471 1 Capsule(s) PO QD 12/23/19 16 06/19/2016 Inactive TAKE ONE CAPSULE BY MOUTH EV JANKI MORNING azithromycin 500 mg tablet RxNorm: 996170 1 Tablet(s) PO QD 016 12/19/2015 Inactive Zofran 4 mg tablet RxNorm: 942353 1 Tablet(s) PO Q4H prn nausea /vomiting 12/13/2015 03/30/2018 Inactive azithromycin 500 mg tablet RxNorm: 152551 1 Tablet(s) PO QD 016 12/12/2015 Inactive Duragesic 100 mcg/hr transdermal patch RxNorm: 201538 2 Application TD Q48H for pain 12/09/2015 01/07/2016 Inactive oxycodone 10 mg tablet RxNorm: 3084811 1-2 Tablet(s) PO QID as n eeded for pain 12/09/2015 06/04/2016 Inactive Bactroban 2 % topical cream RxNorm: 266894 Application TOP BID 11/2208/25/2016 Inactive doxycycline hyclate 100 mg capsule RxNorm: 9772512 1 Capsule(s) PO BID 12/03/2015 12/12/2015 Inactive Topamax 100 mg tablet RxNorm: 871156 TAKE ONE TABLET BY MOUTH EVERY NIGHT AT BEDTIME 11/25/2015 05/22/2016 Inactive Symbicort 160 mcg-4.5 mcg/actuation HFA aerosol inhaler RxNo rm: 0812049 INHALE TWO PUFFS TWO TIMES A DAY 11/25/2015 05/22/2016 Inactive Synthroid 112 mcg tablet RxNorm: 996019 Tablet(s) TAKE ONE TABLET BY MOUTH DAILY 11/25/2015 02/22/2016 Inactive omeprazole 40 mg capsule,delayed release RxNorm: 399824 1 Capsu le(s) PO QD 11/12/2015 05/05/2016 Inactive oxycodone 10 mg tablet RxNorm: 0616720 1-2 Tablet(s) PO QID as n eeded for pain 11/05/2015 12/08/2015 Inactive Duragesic 100 mcg/hr transdermal patch RxNorm: 322940 2 Application TD Q48H for pain 11/05/2015 12/04/2015 Inactive omeprazole 40 mg capsule,delayed release RxNorm: 729023 1 Capsu le(s) PO QD 10/07/2015 11/11/2015 Inactive Januvia 100 mg tablet RxNorm: 431297 TAKE ONE TABLET BY MOUTH DAILY 09/11/2015 12/25/2015 Inactive Zithromax 500 mg tablet RxNorm: 639785 1 Tablet(s) PO QD 09/10/2015 1 Inactive prednisone 20 mg tablet RxNorm: 401265 1 Tablet(s) PO T ID for 3 days then 1 po BID for 3 days then one daily for 3 days 09/10/2015 08/25/2016 Inactiv e Wellbutrin XL 300 mg 24 hr tablet, extended release RxNorm: 402761 1 Tablet(s) PO QAM 09/10/2015 12/02/2015 Inactive Topamax 100 mg tablet RxNorm: 081407 TAKE ONE TABLET BY MOUTH EVERY NIGHT AT BEDTIME 09/02/2015 11/24/2015 Inactive Synthroid 112 mcg tablet RxNorm: 971583 TAKE ONE TABLET BY MOUT H DAILY 09/02/2015 11/25/2015 Inactive methocarbamol 750 mg tablet RxNorm: 776531 2 Tablet(s) PO TID as needed for muscle spasm 08/15/2015 01/09/2016 Inactive Wellbutrin XL 150 mg 24 hr tablet, extended release RxNorm: 198296 TAKE ONE TABLET BY MOUTH EVERY MORNING 08/13/2015 08/13/2015 Inactive gabapentin 600 mg tablet RxNorm: 796975 1 Tablet(s) PO BID 08/13/20 15 02/08/2016 Inactive Wellbutrin XL 300 mg 24 hr tablet, extended release RxNorm: 129937 1 Tablet(s) PO QAM 08/06/2015 09/09/2015 Inactive Wellbutrin XL 150 mg 24 hr tablet, extended release RxNorm: 145588 1 Tablet(s) PO QAM 07/18/2015 08/05/2015 Inactive prednisone 20 mg tablet RxNorm: 009056 1 Tablet(s) PO BID 07/18/2015 07/22/2015 Inactive doxycycline hyclate 100 mg tablet,delayed release RxNorm: 43 4018 1 Tablet(s) PO BID 07/18/2015 07/27/2015 Inactive pravastatin 40 mg tablet RxNorm: 138788 1 Tablet(s) PO QD NEEDS FASTING LAB 07/15/2015 07/14/2015 Inactive pravastatin 40 mg tablet RxNorm: 128595 1 Tablet(s) PO QD NEEDS FASTING LAB 07/15/2015 01/25/2018 Inactive Ventolin HFA 90 mcg/actuation aerosol inhaler RxNorm: 449226 2 Puff(s) INH Q4H 07/08/2015 07/07/2015 Inactive prn Premarin 0.45 mg tablet RxNorm: 218469 1 Tablet(s) PO QD 07/01/2015 0 12/22/2015 Inactive pravastatin 40 mg tablet RxNorm: 459933 1 Tablet(s) PO QD NEEDS FASTING LAB 06/14/2015 07/15/2015 Inactive Ventolin HFA 90 mcg/actuation aerosol inhaler RxNorm: 2447925 2 Puff(s) INH Q4H 06/06/2015 07/08/2015 Inactive prn albuterol sulfate 2.5 mg/3 mL (0.083 %) solution for n ebulization RxNorm: 305020 1 Unit Dose INH QID 05/30/2015 No Stop Date Active Duragesic 100 mcg/hr transdermal patch RxNorm: 536273 2 Application TD Q48H for pain 04/29/2015 05/28/2015 Inactive gabapentin 600 mg tablet RxNorm: 524743 1 Tablet(s) PO BID 04/11/20 15 08/13/2015 Inactive Onglyza 5 mg tablet RxNorm: 889705 1 Tablet(s) PO QD for blood suga r 04/10/2015 04/15/2015 Inactive [Brand Copay Card: RxBIN:[id number] PCN:CRISTIANA RxGRP:[id number] ID#:[id number]] methocarbamol 750 mg tablet RxNorm: 507400 2 Tablet(s) PO TID as needed for muscle spasm 03/28/2015 08/15/2015 Inactive pravastatin 40 mg tablet RxNorm: 771936 1 Tablet(s) PO QD 03/19/2015 03/18/2015 Inactive pravastatin 40 mg tablet RxNorm: 133938 1 Tablet(s) PO QD 03/19/2015 06/14/2015 Inactive lactulose 10 gram/15 mL oral solution RxNorm: 393656 [address]s) PO QD 03/07/2015 01/09/2016 Inactive TAKE 1 TABLESPOON BY MOUTH ONCE DAILY oxycodone 20 mg tablet RxNorm: 1987996 1 Tablet(s) PO QID as nee ded for pain 03/05/2015 07/08/2015 Inactive Topamax 100 mg tablet RxNorm: 980144 1 Tablet(s) PO QHS TAKE ONE TABLET BY MOUTH AT BEDTIME 02/25/2015 02/12/2019 Inactive metformin ER 500 mg tablet,extended release 24 hr RxNorm: 86 0975 1 Tablet(s) PO QD 02/11/2015 03/04/2015 Inactive take one tablet by mouth every day Daliresp 500 mcg tablet RxNorm: 8224032 1 Tablet(s) PO QD 02/11/2015 08/09/2015 Inactive Endocet 10 mg-325 mg tablet RxNorm: 2922783 1 Tablet(s) PO Q4H as needed for pain 01/23/2015 01/23/2015 Inactive gabapentin 600 mg tablet RxNorm: 648768 1 Tablet(s) PO BID 01/23/20 15 04/11/2015 Inactive methocarbamol 750 mg tablet RxNorm: 964834 2 Tablet(s) PO TID as needed for muscle spasm 01/15/2015 02/13/2015 Inactive fluoxetine 40 mg capsule RxNorm: 117041 1 Capsule(s) PO QD 01/14/20 15 12/23/2015 Inactive TAKE ONE CAPSULE BY MOUTH EV JANKI MORNING fluoxetine 20 mg capsule RxNorm: 518712 1 Capsule(s) PO QD 01/14/20 15 12/23/2015 Inactive Premarin 0.45 mg tablet RxNorm: 897806 1 Tablet(s) PO QD 01/02/2015 0 07/01/2015 Inactive Endocet 10 mg-325 mg tablet RxNorm: 5798342 1-2 Tablet(s) PO Q4H 02/12/2019 Inactive PRN PAIN Duragesic 100 mcg/hr transdermal patch RxNorm: 726539 2 Application TD Q48H for pain 12/25/2014 01/23/2015 Inactive Topamax 100 mg tablet RxNorm: 619722 1 Tablet(s) PO QHS TAKE ONE TABLET BY MOUTH AT BEDTIME 12/25/2014 02/24/2015 Inactive Tudorza Pressair 400 mcg/actuation breath activated RxNorm: 5867804 1 BID INHALE ONE PUFF INTO LUNGS TWO TIMES A DAY 12/17/2014 05/15/2015 Inactive Endocet 10 mg-325 mg tablet RxNorm: 6638892 1-2 Tablet(s) PO Q4H 12/19/2014 Inactive PRN PAIN Duragesic 100 mcg/hr transdermal patch RxNorm: 049650 2 Application TD Q48H for pain 11/20/2014 12/24/2014 Inactive TapFunderTouch Ultra Test strips RxNorm: TEST BLOOD SUGAR ONCE DAILY 250.00 11/16/2014 01/08/2016 Inactive omeprazole 40 mg capsule,delayed release RxNorm: 869582 1 Capsu le(s) PO QD 11/13/2014 11/12/2015 Inactive metformin ER 500 mg tablet,extended release 24 hr RxNorm: 86 0975 1 Tablet(s) PO QD 11/12/2014 02/11/2015 Inactive take one tablet by mouth every day Symbicort 160 mcg-4.5 mcg/actuation HFA aerosol inhaler RxNo rm: 0751196 2 Puff(s) INH BID 11/12/2014 03/11/2015 Inactive INHALE 2 PUFFS O RALLY TWO TIMES A DAY gabapentin 800 mg tablet RxNorm: 172894 1 Tablet(s) PO QD TAKE ONE TABLET BY MOUTH ONCE A DAY 10/22/2014 01/01/2015 Inactive Endocet 10 mg-325 mg tablet RxNorm: 0775433 1-2 Tablet(s) PO Q4H 11/15/2014 Inactive PRN PAIN Duragesic 100 mcg/hr transdermal patch RxNorm: 267158 2 Application TD Q48H for pain 10/17/2014 11/19/2014 Inactive gabapentin 800 mg tablet RxNorm: 611918 1 Tablet(s) PO QD TAKE ONE TABLET BY MOUTH ONCE A DAY 10/04/2014 10/21/2014 Inactive Premarin 0.9 mg tablet RxNorm: 418822 1 Tablet(s) PO QD TAKE ONE TABLET BY MOUTH ONCE A DAY 10/04/2014 01/01/2015 Inactive Spiriva with HandiHaler 18 mcg & inhalation capsules RxNorm: 285888 1 Capsule(s) INH QD 10/03/2014 04/30/2015 Inactive Levaquin 500 mg tablet RxNorm: 374729 1 Tablet(s) PO QD 10/03/2014 Inactive prednisone 20 mg tablet RxNorm: 531614 1 Tablet(s) PO QD 10/03/2014 1 12/09/2013 Inactive Duragesic 100 mcg/hr transdermal patch RxNorm: 250496 2 Application TD Q48H for pain 09/18/2014 10/16/2014 Inactive Endocet 10 mg-325 mg tablet RxNorm: 9650963 1-2 Tablet(s) PO Q4H 10/16/2014 Inactive PRN PAIN Synthroid 112 mcg tablet RxNorm: 929689 1 Tablet(s) QD 09/10/2014 Inactive Synthroid 112 mcg tablet RxNorm: 083261 TAKE ONE TABLET BY MOUTH ONE TIME A DAY. NEEDS LABS 09/10/2014 02/06/2015 Inactive omeprazole 40 mg capsule,delayed release RxNorm: 774273 1 Capsu le(s) PO QD 09/03/2014 11/13/2014 Inactive omeprazole 40 mg capsule,delayed release RxNorm: 025437 1 Capsu le(s) PO QD 09/03/2014 09/02/2014 Inactive Spiriva with HandiHaler 18 mcg & inhalation capsules RxNorm: 901522 1 Capsule(s) INH QD 08/27/2014 10/02/2014 Inactive gabapentin 600 mg tablet RxNorm: 411167 1 Tablet(s) PO BID 08/27/20 14 10/22/2014 Inactive Endocet 10 mg-325 mg tablet RxNorm: 5812477 1-2 Tablet(s) PO Q4H 09/17/2014 Inactive PRN PAIN fentanyl 100 mcg/hr transdermal patch RxNorm: 572536 1 Unit Dos e TD QD 08/21/2014 09/19/2014 Inactive Daliresp 500 mcg tablet RxNorm: 8208309 1 Tablet(s) PO QD 08/13/2014 02/11/2015 Inactive Synthroid 112 mcg tablet RxNorm: 762683 TAKE ONE TABLET BY MOUTH ONE TIME A DAY. NEEDS LABS 08/10/2014 09/10/2014 Inactive Endocet 10 mg-325 mg tablet RxNorm: 8420152 1-2 Tablet(s) PO Q4H 08/17/2014 Inactive PRN PAIN Duragesic 100 mcg/hr transdermal patch RxNorm: 676196 2 Application TD Q48H for pain 07/19/2014 09/17/2014 Inactive fluoxetine 40 mg capsule RxNorm: 430318 1 Capsule(s) PO QD 07/17/20 14 01/14/2015 Inactive TAKE ONE CAPSULE BY MOUTH EV JANKI MORNING fluoxetine 20 mg capsule RxNorm: 057114 1 Capsule(s) PO QD 07/17/20 14 01/14/2015 Inactive Spiriva with HandiHaler 18 mcg & inhalation capsules RxNorm: 493006 1 Capsule(s) INH QD 07/17/2014 08/26/2014 Inactive INHALE CONTENTS OF 1 CAPSULE(S) WITH HANDIHALER ONCE DAILY Zofran 4 mg tablet RxNorm: 765838 1 Tablet(s) PO Q4H prn nausea 07/25/2014 Inactive Synthroid 112 mcg tablet RxNorm: 045657 1 Tablet(s) PO QD 07/09/2014 07/09/2014 Inactive methocarbamol 750 mg tablet RxNorm: 702039 2 Tablet(s) PO TID as needed for muscle spasm 07/09/2014 09/06/2014 Inactive Synthroid 112 mcg tablet RxNorm: 196817 1 Tablet(s) PO QD - nee d labs 07/09/2014 08/07/2014 Inactive Medrol (Aníbal) 4 mg tablets in a dose pack RxNorm: 247429 6 Tablet(s) PO QD --then as directed 07/03/2014 07/08/2014 Inactive Tudorza Pressair 400 mcg/actuation breath activated RxNorm: 2093276 1 Puff(s) INH BID 07/03/2014 12/17/2014 Inactive cefdinir 300 mg capsule RxNorm: 858681 1 Capsule(s) PO BID 07/03/20 14 07/12/2014 Inactive Topamax 100 mg tablet RxNorm: 851071 Tablet(s) TAKE ONE TABLET BY MOUTH AT BEDTIME 07/02/2014 02/25/2015 Inactive Duragesic 100 mcg/hr transdermal patch RxNorm: 997174 2 Application TD Q48H for pain 06/25/2014 07/18/2014 Inactive Endocet 10 mg-325 mg tablet RxNorm: 1398311 1-2 Tablet(s) PO Q4H 07/18/2014 Inactive PRN PAIN metformin ER 500 mg tablet,extended release 24 hr RxNorm: 86 0975 1 Tablet(s) PO QD Needs labs 06/18/2014 07/01/2014 Inactive take one tablet by mouth every day Duragesic 100 mcg/hr transdermal patch RxNorm: 014293 2 Application TD Q48H for pain 05/22/2014 06/24/2014 Inactive Synthroid 112 mcg tablet RxNorm: 894301 1 Tablet(s) PO QD 05/22/2014 07/09/2014 Inactive Endocet 10 mg-325 mg tablet RxNorm: 2698616 1-2 Tablet(s) PO Q4H 06/20/2014 Inactive PRN PAIN Endocet 10 mg-325 mg tablet RxNorm: 7652797 1-2 Tablet(s) PO Q4H 05/21/2014 Inactive PRN PAIN Duragesic 100 mcg/hr transdermal patch RxNorm: 696567 2 Application TD Q48H for pain 04/25/2014 05/21/2014 Inactive Daliresp 500 mcg tablet RxNorm: 0567269 1 Tablet(s) PO QD 04/24/2014 08/13/2014 Inactive Symbicort 160 mcg-4.5 mcg/actuation HFA aerosol inhaler RxNo rm: 8805957 2 Puff(s) INH BID 04/24/2014 08/21/2014 Inactive INHALE 2 PUFFS O RALLY TWO TIMES A DAY metformin ER 500 mg tablet,extended release 24 hr RxNorm: 86 0975 1 Tablet(s) PO QD 04/24/2014 11/12/2014 Inactive TAKE ONE TABLET BY MOUTH EVERY DAY [AttnRPh:Saving Apply/Adjudicate RxGRP:LDMGRP RxBIN:[id number] RxPCN:2012 PCode: ID#:[id number]] Symbicort 160 mcg-4.5 mcg/actuation HFA aerosol inhaler RxNo rm: 3828943 2 Puff(s) INH BID 04/24/2014 11/12/2014 Inactive INHALE 2 PUFFS O RALLY TWO TIMES A DAY Premarin 0.9 mg tablet RxNorm: 300090 1 Tablet(s) PO QD 04/24/2014 Inactive TAKE ONE TABLET BY MOUTH EVERY DAY metformin ER 500 mg tablet,extended release 24 hr RxNorm: 86 0975 1 Tablet(s) PO QD Needs labs 04/24/2014 06/18/2014 Inactive TAKE ONE TABLET BY MOUTH EVERY DAY [AttnRPh:Saving Apply/Adjudicate RxGRP:LDMGRP RxBIN:[id number] RxPCN:2012 PCode:01 ID#:[id number]] gabapentin 800 mg tablet RxNorm: 438038 1 Tablet(s) PO QD 04/24/2014 10/04/2014 Inactive TAKE ONE TABLET BY MOUTH EVERY DAY Topamax 100 mg tablet RxNorm: 977031 1 Tablet(s) PO QHS 04/17/2014 Inactive Topamax 100 mg tablet RxNorm: 534883 TAKE ONE TABLET BY MOUTH A T BEDTIME 04/17/2014 07/01/2014 Inactive Tudorza Pressair 400 mcg/actuation breath activated RxNorm: 0578414 1 Puff(s) INH BID 04/11/2014 07/02/2014 Inactive Duragesic 100 mcg/hr transdermal patch RxNorm: 785067 2 Application TD Q48H for pain 03/27/2014 04/24/2014 Inactive Endocet 10 mg-325 mg tablet RxNorm: 6744762 1-2 Tablet(s) PO Q4H 04/24/2014 Inactive PRN PAIN Robaxin 750 mg tablet RxNorm: 854271 2 Tablet(s) PO TID as need ed for spasm 02/23/2014 03/28/2015 Inactive Duragesic 100 mcg/hr transdermal patch RxNorm: 395407 2 Application TD Q48H for pain 02/23/2014 No Stop Date Active Endocet 10 mg-325 mg tablet RxNorm: 1861386 1-2 Tablet(s) PO Q4H 03/23/2014 Inactive PRN PAIN Synthroid 112 mcg tablet RxNorm: 688001 1 Tablet(s) PO QD TAKE ONE TABLET BY MOUTH EVERY DAY 02/15/2014 05/22/2014 Inactive Zithromax 500 mg tablet RxNorm: 182640 1 Tablet(s) PO QD 01/30/2014 0 02/05/2014 Inactive Diflucan 100 mg tablet RxNorm: 637355 1 Tablet(s) PO QD 01/30/2014 Inactive prednisone 20 mg tablet RxNorm: 701824 1 Tablet(s) PO BID 01/30/2014 02/05/2014 Inactive fluoxetine 40 mg capsule RxNorm: 087255 1 Capsule(s) PO QD 01/23/20 14 07/16/2014 Inactive TAKE ONE CAPSULE BY MOUTH EV JANKI MORNING fluoxetine 40 mg capsule RxNorm: 999057 1 Capsule(s) PO QD 01/23/20 14 07/17/2014 Inactive TAKE ONE CAPSULE BY MOUTH EV JANKI MORNING cefdinir 300 mg capsule RxNorm: 809308 1 Capsule(s) PO BID 01/16/20 14 01/29/2014 Inactive Zithromax 500 mg tablet RxNorm: 042997 1 Tablet(s) PO QD 01/16/2014 0 01/22/2014 Inactive prednisone 20 mg tablet RxNorm: 676875 1 Tablet(s) PO BID 01/16/2014 01/22/2014 Inactive Spiriva with HandiHaler 18 mcg and inhalation capsules RxNor m: 241089 1 Capsule(s) INH QD 12/18/2013 07/17/2014 Inactive INHALE CONTENT S OF 1 CAPSULE(S) WITH HANDIHALER ONCE DAILY fluoxetine 20 mg capsule RxNorm: 202397 1 Capsule(s) PO QD 12/18/19 14 06/15/2014 Inactive Spiriva with HandiHaler 18 mcg & inhalation capsules RxNorm: 605505 1 Capsule(s) INH QD 12/18/2013 06/15/2014 Inactive INHALE CONTENTS OF 1 CAPSULE(S) WITH HANDIHALER ONCE DAILY fluoxetine 20 mg capsule RxNorm: 150683 1 Capsule(s) PO QD 12/18/19 14 07/17/2014 Inactive cefdinir 300 mg capsule RxNorm: 573261 2 Capsule(s) PO QD 12/12/2013 12/21/2013 Inactive Duragesic 100 mcg/hr transdermal patch RxNorm: 905910 2 Application TD Q48H for pain 12/08/2013 12/07/2013 Inactive Topamax 100 mg tablet RxNorm: 250479 1 Tablet(s) PO QHS 12/04/2013 Inactive Endocet 10 mg-325 mg tablet RxNorm: 3683606 1-2 Tablet(s) PO Q4H 12/26/2013 Inactive PRN PAIN Robaxin 750 mg tablet RxNorm: 679035 2 Tablet(s) PO TID as need ed for spasm 11/07/2013 01/05/2014 Inactive gabapentin 800 mg tablet RxNorm: 379422 1 Tablet(s) PO QD 10/16/2013 04/24/2014 Inactive TAKE ONE TABLET BY MOUTH EVERY DAY Symbicort 160 mcg-4.5 mcg/actuation HFA aerosol inhaler RxNo rm: 1412341 2 Puff(s) INH BID 10/16/2013 04/24/2014 Inactive INHALE 2 PUFFS O RALLY TWO TIMES A DAY Premarin 0.9 mg tablet RxNorm: 274828 1 Tablet(s) PO QD 10/16/2013 Inactive TAKE ONE TABLET BY MOUTH EVERY DAY metformin ER 500 mg tablet,extended release 24 hr RxNorm: 86 0975 1 Tablet(s) PO QD 10/16/2013 04/24/2014 Inactive TAKE ONE TABLET BY MOUTH EVERY DAY Daliresp 500 mcg tablet RxNorm: 2824130 1 Tablet(s) PO QD 10/16/2013 04/24/2014 Inactive Robaxin 750 mg tablet RxNorm: 124178 2 Tablet(s) PO TID as need ed for spasm 10/10/2013 11/06/2013 Inactive Duragesic 100 mcg/hr transdermal patch RxNorm: 592985 2 Application TD Q48H for pain 10/09/2013 No Stop Date Active Soma 350 mg tablet RxNorm: 348396 1 Tablet(s) PO TID 09/27/201310/09 Inactive TAKE ONE TABLET BY MOUTH THREE TIMES A D AY lactulose 10 gram/15 mL oral solution RxNorm: 607507 [address](s) PO QD 09/13/2013 03/07/2015 Inactive TAKE 1 TABLESPOON BY MOUTH ONCE DAILY Duragesic 100 mcg/hr transdermal patch RxNorm: 178676 2 Application TD Q48H for pain 09/06/2013 No Stop Date Active Endocet 10 mg-325 mg tablet RxNorm: 6511720 1-2 Tablet(s) PO Q4H 09/27/2013 Inactive PRN PAIN lancets 28 gauge RxNorm: Miscellaneous As needed for blo od glucose sticks 08/24/2013 No Stop Date Active 16.2 mg-0.1037 mg-0.0194 mg tablet RxNorm: 9896075 Tablet(s) PO PRN for gas and cramping 08/24/2013 01/19/2017 Inactive TAKE TWO TABLET S BY MOUTH THREE TIMES A DAY NEEDED FOR GAS AND CRAMPING Topamax 100 mg tablet RxNorm: 359026 1 Tablet(s) PO QHS 07/31/2013 Inactive Diflucan 100 mg tablet RxNorm: 060682 1 Tablet(s) PO QD 07/27/2013 Inactive cefdinir 300 mg capsule RxNorm: 253976 1 Capsule(s) PO BID 07/26/20 13 08/08/2013 Inactive Daliresp 500 mcg tablet RxNorm: 7356212 1 Tablet(s) PO QD 07/25/2013 10/15/2013 Inactive fluoxetine 40 mg capsule RxNorm: 137810 1 Capsule(s) PO QD 07/25/20 13 01/22/2014 Inactive TAKE ONE CAPSULE BY MOUTH EV JANKI MORNING Senokot-S 8.6 mg-50 mg tablet RxNorm: 1433307 1 Tablet(s) PO BID 10/25/2013 Inactive doxycycline hyclate 100 mg capsule RxNorm: 7749469 1 Capsule(s) PO BID 06/28/2013 07/07/2013 Inactive prednisone 20 mg tablet RxNorm: 541623 1 Tablet(s) PO BID 06/28/2013 07/04/2013 Inactive Zofran 4 mg tablet RxNorm: 360476 1 Tablet(s) PO Q4H prn nausea 03/201307/05/2013 Inactive Spiriva with HandiHaler 18 mcg & inhalation capsules RxNorm: 796181 1 Capsule(s) INH QD 06/26/2013 12/18/2013 Inactive INHALE CONTENTS OF 1 CAPSULE(S) WITH HANDIHALER ONCE DAILY Synthroid 112 mcg tablet RxNorm: 286703 1 Tablet(s) PO QD TAKE ONE TABLET BY MOUTH EVERY DAY 06/19/2013 02/15/2014 Inactive fluoxetine 20 mg capsule RxNorm: 223314 1 Capsule(s) PO QD 06/19/20 13 12/18/2013 Inactive Ventolin HFA 90 mcg/actuation Aerosol Inhaler RxNorm: 5968920 2 Puff(s) INH Q4H 06/05/2013 No Stop Date Active prn Soma 350 mg tablet RxNorm: 784862 1 Tablet(s) PO TID 06/05/201307/04 Inactive TAKE ONE TABLET BY MOUTH THREE TIMES A D AY prednisone 20 mg tablet RxNorm: 804877 1 Tablet(s) PO QD 05/31/2013 0 06/06/2013 Inactive Topamax 100 mg tablet RxNorm: 760843 1 Tablet(s) PO QHS 05/22/2013 Inactive Levaquin 500 mg tablet RxNorm: 895646 1 Tablet(s) PO QD 05/03/2013 Inactive Diflucan 100 mg tablet RxNorm: 902547 1 Tablet(s) PO QD 05/03/2013 Inactive Daliresp 500 mcg tablet RxNorm: 5306433 1 Tablet(s) PO QD 05/01/2013 07/24/2013 Inactive Daliresp 500 mcg tablet RxNorm: 7207044 1 Tablet(s) PO QD 05/01/2013 04/30/2013 Inactive gabapentin 800 mg tablet RxNorm: 835370 1 Tablet(s) PO QD 04/10/2013 10/06/2013 Inactive TAKE ONE TABLET BY MOUTH EVERY DAY metformin ER 500 mg tablet,extended release 24 hr RxNorm: 86 0977 1 Tablet(s) PO QD 04/10/2013 10/06/2013 Inactive TAKE ONE TABLET BY MOUTH EVERY DAY Premarin 0.9 mg tablet RxNorm: 032986 1 Tablet(s) PO QD 04/10/2013 Inactive TAKE ONE TABLET BY MOUTH EVERY DAY Symbicort 160 mcg-4.5 mcg/actuation HFA aerosol inhaler RxNo rm: 8277690 2 Puff(s) INH BID 04/10/2013 10/06/2013 Inactive INHALE 2 PUFFS O RALLY TWO TIMES A DAY Synthroid 112 mcg tablet RxNorm: 255776 1 Tablet(s) PO QD TAKE ONE TABLET BY MOUTH EVERY DAY 04/10/2013 06/18/2013 Inactive Ventolin HFA 90 mcg/actuation Aerosol Inhaler RxNorm: 9539464 2 Puff(s) INH Q4H 04/10/2013 No Stop Date Active prn fentanyl 100 mcg/hr transdermal patch RxNorm: 953680 1 Unit Dos e TD QD 04/03/2013 05/02/2013 Inactive Endocet 10 mg-325 mg tablet RxNorm: 0100939 1-2 Tablet(s) PO Q4H 05/02/2013 Inactive PRN PAIN Topamax 100 mg tablet RxNorm: 853938 1 Tablet(s) PO QHS 03/13/2013 Inactive Reglan 10 mg tablet RxNorm: 397459 1 Tablet(s) PO QID b efore meals and at bedtime 03/13/2013 04/09/2015 Inactive fluoxetine 20 mg capsule RxNorm: 771793 1 Capsule(s) PO QD 02/28/20 13 05/27/2013 Inactive Ventolin HFA 90 mcg/actuation Aerosol Inhaler RxNorm: 5318573 2 Puff(s) INH Q4H 02/13/2013 No Stop Date Active prn fluoxetine 40 mg capsule RxNorm: 654700 1 Capsule(s) PO QD 01/31/20 13 07/24/2013 Inactive TAKE ONE CAPSULE BY MOUTH EV JANKI MORNING Soma 350 mg tablet RxNorm: 606051 1 Tablet(s) PO TID 01/20/201302/18 Inactive TAKE ONE TABLET BY MOUTH THREE TIMES A D AY Endocet 10 mg-325 mg tablet RxNorm: 2701426 1-2 Tablet(s) PO Q4H 02/06/2013 Inactive PRN PAIN MS Contin 200 mg tablet,extended release RxNorm: 744321 1 Table t(s) PO BID 01/18/2013 02/06/2013 Inactive Ventolin HFA 90 mcg/actuation Aerosol Inhaler RxNorm: 7160822 2 Puff(s) INH Q4H 01/04/2013 No Stop Date Active prn Spiriva with HandiHaler 18 mcg & inhalation capsules RxNorm: 075309 1 Capsule(s) INH QD 12/29/2012 06/25/2013 Inactive INHALE CONTENTS OF 1 CAPSULE(S) WITH HANDIHALER ONCE DAILY Spiriva with HandiHaler 18 mcg & inhalation capsules RxNorm: 638157 1 Capsule(s) INH QD 12/26/2012 12/28/2012 Inactive INHALE CONTENTS OF 1 CAPSULE(S) WITH HANDIHALER ONCE DAILY Synthroid 112 mcg tablet RxNorm: 753761 Tablet(s) PO TA KE ONE TABLET BY MOUTH EVERY DAY 12/26/2012 04/09/2013 Inactive Endocet 10 mg-325 mg tablet RxNorm: 1821165 1-2 Tablet(s) PO Q4H 01/17/2013 Inactive PRN PAIN MS Contin 200 mg tablet,extended release RxNorm: 423510 1 Table t(s) PO BID 12/21/2012 01/17/2013 Inactive fluoxetine 20 mg capsule RxNorm: 786257 1 Capsule(s) PO QD 12/06/19 13 02/26/2013 Inactive Synthroid 112 mcg tablet RxNorm: 474358 1 Tablet(s) PO QD 12/06/2012 02/12/2019 Inactive TAKE ONE TABLET BY MOUTH EVERY DAY Ventolin HFA 90 mcg/actuation Aerosol Inhaler RxNorm: 0624642 2 Puff(s) INH Q4H 12/06/2012 No Stop Date Active prn Reglan 10 mg tablet RxNorm: 633934 1 Tablet(s) PO QID b efore meals and at bedtime 11/24/2012 03/12/2013 Inactive Topamax 100 mg tablet RxNorm: 165277 1 Tablet(s) PO QHS 11/16/2012 Inactive Ventolin HFA 90 mcg/actuation Aerosol Inhaler RxNorm: 3181163 2 Puff(s) INH Q4H 11/09/2012 No Stop Date Active prn gabapentin 800 mg tablet RxNorm: 846429 1 Tablet(s) PO QD 10/27/2012 04/09/2013 Inactive TAKE ONE TABLET BY MOUTH EVERY DAY metformin ER 500 mg tablet,extended release 24 hr RxNorm: 86 0977 1 Tablet(s) PO QD 10/27/2012 04/09/2013 Inactive TAKE ONE TABLET BY MOUTH EVERY DAY Symbicort 160 mcg-4.5 mcg/actuation HFA Aerosol Inhaler RxNo rm: 4947552 2 Puff(s) INH BID 10/27/2012 04/09/2013 Inactive INHALE 2 PUFFS O RALLY TWO TIMES A DAY Premarin 0.9 mg tablet RxNorm: 435406 1 Tablet(s) PO QD 10/27/2012 Inactive TAKE ONE TABLET BY MOUTH EVERY DAY Endocet 10 mg-325 mg tablet RxNorm: 8525454 1-2 Tablet(s) PO Q4H 11/24/2012 Inactive PRN PAIN MS Contin 200 mg tablet,extended release RxNorm: 582662 1 Table t(s) PO BID 10/26/2012 11/24/2012 Inactive Soma 350 mg tablet RxNorm: 699834 1 Tablet(s) PO TID 10/04/201211/02 Inactive TAKE ONE TABLET BY MOUTH THREE TIMES A D AY Ventolin HFA 90 mcg/actuation Aerosol Inhaler RxNorm: 0058233 2 Puff(s) INH Q4H 10/03/2012 No Stop Date Active prn Daliresp 500 mcg tablet RxNorm: 5222881 1 Tablet(s) PO QD 09/28/2012 09/27/2012 Inactive Daliresp 500 mcg tablet RxNorm: 4599713 1 Tablet(s) PO QD 09/28/2012 04/25/2013 Inactive fluoxetine 20 mg capsule RxNorm: 675490 1 Capsule(s) PO QD 09/05/2012/06/2012 Inactive Topamax 50 mg tablet RxNorm: 577151 Tablet(s) PO for 1w k then 1 po q HS for 1wk then 2 po q HS 08/29/2012 09/27/2012 Inactive TAKE 1/2 TABLET BY MOUTH AT BEDTIME FOR 1 WEEK, THEN 1 TABLET AT BEDTIME FOR 1 WEEK, THEN 2 TABLETS AT BEDTIME Topamax 100 mg tablet RxNorm: 518414 1 Tablet(s) PO QHS 08/29/2012 Inactive Ventolin HFA 90 mcg/actuation Aerosol Inhaler RxNorm: 4840153 2 Puff(s) INH Q4H 08/19/2012 No Stop Date Active prn Ventolin HFA 90 mcg/actuation Aerosol Inhaler RxNorm: 7435902 2 Puff(s) INH Q4H 08/15/2012 No Stop Date Active prn Synthroid 112 mcg tablet RxNorm: 993955 1 Tablet(s) PO QD 08/10/2012 11/07/2012 Inactive TAKE ONE TABLET BY MOUTH EVERY DAY Synthroid 112 mcg tablet RxNorm: 523486 1 Tablet(s) PO QD 08/01/2012 08/09/2012 Inactive TAKE ONE TABLET BY MOUTH EVERY DAY Reglan 10 mg tablet RxNorm: 009790 1 Tablet(s) PO QID b efore meals and at bedtime 08/01/2012 11/23/2012 Inactive fluoxetine 40 mg capsule RxNorm: 156976 1 Capsule(s) PO QD 08/01/2001/27/2013 Inactive TAKE ONE CAPSULE BY MOUTH EV JANKI MORNING Ventolin HFA 90 mcg/actuation Aerosol Inhaler RxNorm: 0898288 2 Puff(s) INH Q4H 08/01/2012 No Stop Date Active prn Soma 350 mg tablet RxNorm: 689795 1 Tablet(s) PO TID 07/20/201208/18 Inactive TAKE ONE TABLET BY MOUTH THREE TIMES A D AY Spiriva with HandiHaler 18 mcg & inhalation capsules RxNorm: 169044 1 Capsule(s) INH 07/01/2012 12/25/2012 Inactive INHALE CONTENTS OF 1 CAPSULE(S) WITH HANDIHALER ONCE DAILY Zithromax 250 mg Tab RxNorm: 780522 2 Tablet(s) PO QD 06/28/201206/22 Inactive MS Contin 200 mg tablet,extended release RxNorm: 219479 1 Table t(s) PO BID 06/28/2012 07/27/2012 Inactive Endocet 10 mg-325 mg tablet RxNorm: 0042300 1-2 Tablet(s) PO Q4H 07/27/2012 Inactive PRN PAIN Topamax 100 mg tablet RxNorm: 641660 1 Tablet(s) PO QHS 06/28/2012 Inactive 16.2 mg-0.1037 mg-0.0194 mg tablet RxNorm: 7101799 Tablet(s) PO PRN for gas and cramping 06/08/2012 08/23/2013 Inactive TAKE TWO TABLET S BY MOUTH THREE TIMES A DAY NEEDED FOR GAS AND CRAMPING Ventolin HFA 90 mcg/actuation Aerosol Inhaler RxNorm: 7284230 2 Puff(s) INH Q4H 05/23/2012 No Stop Date Active prn Ventolin HFA 90 mcg/actuation Aerosol Inhaler RxNorm: 6576836 2 Puff(s) INH Q4H 05/11/2012 No Stop Date Active prn Synthroid 112 mcg tablet RxNorm: 504712 1 Tablet(s) PO QD 05/09/2012 07/31/2012 Inactive TAKE ONE TABLET BY MOUTH EVERY DAY gabapentin 800 mg tablet RxNorm: 331459 1 Tablet(s) PO QD 05/09/2012 10/26/2012 Inactive TAKE ONE TABLET BY MOUTH EVERY DAY fluoxetine 40 mg capsule RxNorm: 292693 1 Capsule(s) PO QD 05/09/2007/31/2012 Inactive TAKE ONE CAPSULE BY MOUTH EV JANKI MORNING metformin ER 500 mg tablet,extended release 24 hr RxNorm: 86 0977 1 Tablet(s) PO QD 05/09/2012 10/26/2012 Inactive TAKE ONE TABLET BY MOUTH EVERY DAY Premarin 0.9 mg tablet RxNorm: 040068 1 Tablet(s) PO QD 05/09/2012 Inactive TAKE ONE TABLET BY MOUTH EVERY DAY Symbicort 160 mcg-4.5 mcg/actuation HFA Aerosol Inhaler RxNo rm: 2955463 2 Puff(s) INH BID 05/09/2012 10/26/2012 Inactive INHALE 2 PUFFS O RALLY TWO TIMES A DAY Endocet 10 mg-325 mg Tab RxNorm: 2663958 1-2 Tablet(s) PO Q4H 04/2705/26/2012 Inactive PRN PAIN MS Contin 200 mg Tab RxNorm: 983150 1 Tablet(s) PO BID 04/26/201202/2012 Inactive Ventolin HFA 90 mcg/actuation Aerosol Inhaler RxNorm: 4539711 2 Puff(s) INH Q4H 04/25/2012 05/10/2012 Inactive prn Soma 350 mg tablet RxNorm: 502128 2 Tablet(s) PO TID 04/19/201207/19 Inactive TAKE ONE TABLET BY MOUTH THREE TIMES A D AY Ventolin HFA 90 mcg/actuation Aerosol Inhaler RxNorm: 8874461 2 Puff(s) INH Q4H 04/12/2012 04/24/2012 Inactive prn Reglan 10 mg tablet RxNorm: 752672 1 Tablet(s) PO QID b efore meals and at bedtime 04/11/2012 07/31/2012 Inactive MS Contin 200 mg Tab RxNorm: 499382 1 Tablet(s) PO BID 03/30/201202/2012 Inactive Endocet 10 mg-325 mg Tab RxNorm: 6216746 1-2 Tablet(s) PO Q4H 03/3004/26/2012 Inactive PRN PAIN MS Contin 200 mg Tab RxNorm: 324858 1 Tablet(s) PO BID 03/02/201206/2012 Inactive Endocet 10 mg-325 mg Tab RxNorm: 4600742 1-2 Tablet(s) PO Q4H 03/0203/29/2012 Inactive PRN PAIN Daliresp 500 mcg tablet RxNorm: 5123185 1 Tablet(s) PO QD 03/01/2012 09/28/2012 Inactive MS Contin 200 mg Tab RxNorm: 899657 1 Tablet(s) PO BID 02/02/201208/2012 Inactive Endocet 10 mg-325 mg Tab RxNorm: 2258871 1-2 Tablet(s) PO Q4H 02/0103/01/2012 Inactive PRN PAIN fluoxetine 40 mg capsule RxNorm: 622286 1 Capsule(s) PO QD 02/02/2008/01/2012 Inactive TAKE ONE CAPSULE BY MOUTH EV JANKI MORNING Synthroid 112 mcg Tab RxNorm: 380300 1 Tablet(s) PO QD 01/18/2012 Inactive TAKE ONE TABLET BY MOUTH EVERY DAY lactulose 10 gram/15 mL oral solution RxNorm: 618557 [address]s) PO QD 01/18/2012 No Stop Date Active TAKE 1 TABLESPOON BY MOUTH ONCE DAILY Ventolin HFA 90 mcg/actuation Aerosol Inhaler RxNorm: 1363776 2 Puff(s) INH Q4H 01/18/2012 04/11/2012 Inactive prn MS Contin 200 mg Tab RxNorm: 774078 1 Tablet(s) PO BID 01/05/201210/2012 Inactive Endocet 10 mg-325 mg Tab RxNorm: 2107755 1-2 Tablet(s) PO Q4H 01/0502/01/2012 Inactive PRN PAIN ProAir HFA 90 mcg/Actuation Aerosol Inhaler RxNorm: 7904006 2 Pu ff(s) INH Q4H 12/21/2011 No Stop Date Active prn for wheezing or shortness of breath Spiriva with HandiHaler 18 mcg & inhalation Caps RxNorm: 580 261 1 Capsule(s) INH 12/21/2011 06/30/2012 Inactive INHALE CONTENTS OF 1 CAPSULE(S) WITH HANDIHALER ONCE DAILY Reglan 10 mg Tab RxNorm: 216558 1 Tablet(s) PO QID before meals and at bedtime 12/21/2011 04/10/2012 Inactive Synthroid 112 mcg Tab RxNorm: 335217 1 Tablet(s) PO QD 12/21/2011 Inactive TAKE ONE TABLET BY MOUTH EVERY DAY Endocet 10 mg-325 mg Tab RxNorm: 2969795 1-2 Tablet(s) PO Q4H 11/2512/24/2011 Inactive PRN PAIN MS Contin 200 mg Tab RxNorm: 620520 1 Tablet(s) PO BID 11/25/201112/2011 Inactive lactulose 10 gram/15 mL Oral Soln RxNorm: 156685 Milliliter(s) PO 1 No Stop Date Active TAKE 1 TABLESPOON BY MOUTH O NCE DAILY lactulose 10 gram/15 mL Oral Soln RxNorm: 825579 Milliliter(s) PO 1 12/12/2010 11/20/2011 Inactive TAKE 1 TABLESPOON BY MOUTH O NCE DAILY Premarin 0.9 mg Tab RxNorm: 423448 1 Tablet(s) PO QD 10/12/201105/08 Inactive TAKE ONE TABLET BY MOUTH EVERY DAY fluoxetine 20 mg capsule RxNorm: 917139 1 Capsule(s) PO QD 10/12/2009/05/2012 Inactive TAKE ONE CAPSULE BY MOUTH EV JANKI DAY Synthroid 112 mcg Tab RxNorm: 003678 1 Tablet(s) PO QD 10/12/2011 Inactive TAKE ONE TABLET BY MOUTH EVERY DAY metformin ER 500 mg 24 hr Tab RxNorm: 934758 1 Tablet(s) PO QD 09/2311/10/2011 Inactive TAKE ONE TABLET BY MOUTH GLYNN RY DAY Synthroid 112 mcg Tab RxNorm: 548482 1 Tablet(s) PO QD 10/12/2011 Inactive TAKE ONE TABLET BY MOUTH EVERY DAY metformin ER 500 mg 24 hr Tab RxNorm: 516669 1 Tablet(s) PO QD 09/2310/11/2011 Inactive TAKE ONE TABLET BY MOUTH GLYNN DAY Prevacid 30 mg Cap RxNorm: 325583 Capsule(s) PO 10/12/2011 01/25/2012 Inactive TAKE ONE CAPSULE BY MOUTH EVERY DAY Symbicort 160 mcg-4.5 mcg/actuation HFA Aerosol Inhaler RxNo rm: 0107397 2 Puff(s) INH BID 10/12/2011 05/08/2012 Inactive INHALE 2 PUFFS O RALLY TWO TIMES A DAY gabapentin 800 mg Tab RxNorm: 047514 1 Tablet(s) PO QD 10/12/2011 Inactive TAKE ONE TABLET BY MOUTH EVERY DAY MS Contin 200 mg Tab RxNorm: 232117 1 Tablet(s) PO BID 09/23/201111/2010 Inactive Endocet 10 mg-325 mg Tab RxNorm: 8851579 1-2 Tablet(s) PO Q4H 09/2310/22/2011 Inactive PRN PAIN Endocet 10 mg-325 mg Tab RxNorm: 5765862 1-2 Tablet(s) PO Q4H 08/2109/19/2011 Inactive PRN PAIN MS Contin 200 mg Tab RxNorm: 705319 1 Tablet(s) PO BID 08/21/2011 Inactive Diflucan 100 mg Tab RxNorm: 906415 1 Tablet(s) PO QD 08/10/201108/16 Inactive cefdinir 300 mg Cap RxNorm: 209954 2 Capsule(s) PO QD 08/10/201107/24 Inactive Reglan 10 mg Tab RxNorm: 536509 1 Tablet(s) PO AC & HS 07/15/2011 Inactive Endocet 10 mg-325 mg Tab RxNorm: 9462558 1-2 Tablet(s) PO Q4H 07/1508/13/2011 Inactive PRN PAIN One Touch Ultra Test strips RxNorm: Miscellaneous BID 06/11/2011 1 01/16/2014 Inactive TEST TWO TIMES A DAY lactulose 10 gram/15 mL Oral Soln RxNorm: 432131 Milliliter(s) PO 0 06/10/2011 10/11/2011 Inactive TAKE 1 TABLESPOON BY MOUTH O NCE DAILY Chantix Continuing Month Aníbal 1 mg Tab RxNorm: 717949 Tablet(s) PO 0 06/10/2011 11/02/2011 Inactive TAKE DIRECTED - PER PACK[employer] GE INSTRUCTIONS fluoxetine 40 mg Cap RxNorm: 519617 Capsule(s) PO 06/10/2011 02/02/20 Inactive TAKE ONE CAPSULE BY MOUTH EVERY MORNING Chantix Continuing Month Aníbal 1 mg Tab RxNorm: 429676 Ta blet(s) PO TAKE DIRECTED - PER PACKAGE INSTRUCTIONS 05/13/2011 06/09/2011 Inactive Soma 350 mg Tab RxNorm: 305269 Tablet(s) PO TAKE ON E TABLET BY MOUTH THREE TIMES A DAY 05/13/2011 04/18/2012 Inactive Chantix Continuing Month Aníbal 1 mg Tab RxNorm: 824262 Ta blet(s) PO as directed per package instructions. 04/22/2011 05/12/2011 Inactive Symbicort 160 mcg-4.5 mcg/Actuation HFA Aerosol Inhaler RxNo rm: 9607777 HFA Aerosol Inhaler INH INHALE 2 PUFFS ORALLY TWO TIMES A DAY 04/13/2011 Inactive Synthroid 112 mcg Tab RxNorm: 584694 Tablet(s) PO TAKE ONE TABLET BY MOUTH EVERY DAY 04/13/2011 10/12/2011 Inactive Premarin 0.9 mg Tab RxNorm: 215564 Tablet(s) PO TAKE ON E TABLET BY MOUTH EVERY DAY 04/13/2011 10/12/2011 Inactive gabapentin 800 mg Tab RxNorm: 753579 Tablet(s) PO TAKE ONE TABLET BY MOUTH EVERY DAY 04/13/2011 10/12/2011 Inactive Prevacid 30 mg Cap RxNorm: 104974 1 Capsule(s) PO QD 04/13/201110/11 Inactive Spiriva with HandiHaler 18 mcg & inhalation Caps RxNorm: 580 261 Capsule(s) INH INHALE CONTENTS OF 1 CAPSULE(S) WITH HANDIHALER ONCE DAILY 04/13/2011 12/21/2011 Inactive metformin ER 500 mg 24 hr Tab RxNorm: 090845 Tablet(s) PO TAKE ONE TABLET BY MOUTH EVERY DAY 04/13/2011 10/12/2011 Inactive Soma 350 mg Tab RxNorm: 860959 1 Tablet(s) PO QID 03/30/2011 02/13/20 19 Inactive fluoxetine 20 mg Cap RxNorm: 013106 Capsule(s) PO TAKE ONE CAPSULE BY MOUTH EVERY DAY 03/25/2011 10/12/2011 Inactive cefdinir 300 mg Cap RxNorm: 489010 2 Capsule(s) PO QD 03/19/201105/2011 Inactive 16.2 mg-0.1037 mg-0.0194 mg Tab RxNorm: 3810822 2 Tablet(s) PO TID PRN for gas and cramping 03/16/2011 07/13/2011 Inactive Soma 350 mg Tab RxNorm: 535769 2 Tablet(s) PO TID 03/16/2011 03/29/20 11 Inactive Chantix Starting Month Aníbal 0.5 mg (11)-1 mg (3x14) Tab s in a Dose Pack RxNorm: 366111 Tablet(s) PO as directed 03/02/2011 No Stop Date Active diazepam 10 mg Tab RxNorm: 630823 1 Tablet(s) PO BID 02/10/201101/19 Inactive Zofran 4 mg tablet RxNorm: 971029 1 Tablet(s) PO Q4H prn nausea 02/16/2011 Inactive Diflucan 100 mg Tab RxNorm: 442613 1 Tablet(s) PO QD 01/18/201101/24 Inactive Premarin 0.625 mg/g Vaginal Cream RxNorm: 507681 VAG In sert 1gm vaginally at bedtime 3 times weekly 01/18/2011 02/12/2019 Inactive loratadine 10 mg Tab RxNorm: 541591 1 Tablet(s) PO QD 12/17/201003/2012 Inactive Spiriva with HandiHaler 18 mcg & inhalation Caps RxNorm: 580 261 1 Capsule(s) INH QD 12/17/2010 04/12/2011 Inactive Diflucan 100 mg Tab RxNorm: 595245 1 Tablet(s) PO QD 12/17/201012/23 Inactive diazepam 10 mg Tab RxNorm: 344356 1 Tablet(s) PO BID and PRN 201002/12/2019 Inactive One Touch Ultra Test Strips RxNorm: InVt BID Zainab t blood sugar at least twice daily. 11/11/2010 06/11/2011 Inactive fluoxetine 40 mg Cap RxNorm: 931374 1 Capsule(s) PO QAM 11/11/2010 Inactive diazepam 10 mg Tab RxNorm: 924885 1 Tablet(s) PO BID and PRN 200911/12/2010 Inactive Bactrim DS 800 mg-160 mg Tab RxNorm: 188947 1 Tablet(s) PO BID 09/2210/15/2010 Inactive fluoxetine 20 mg Cap RxNorm: 023708 1 Capsule(s) PO QD 10/02/201008/2011 Inactive Bactrim DS 800 mg-160 mg Tab RxNorm: 902723 1 Tablet(s) PO BID 01/201010/03/2010 Inactive Zofran 4 mg Tab RxNorm: 351721 1 Tablet(s) PO Q4H prn nausea 200910/16/2010 Inactive 16.2 mg-0.1037 mg-0.0194 mg Tab RxNorm: 9126898 2 Tablet(s) PO TID PRN for gas and cramping 09/17/2010 10/21/2010 Inactive Gabapentin 800 mg Tab RxNorm: 050998 1 Tablet(s) PO QD 09/16/2010 Inactive ProAir HFA 90 mcg/Actuation Aerosol Inhaler RxNorm: 7988521 2 Puff(s) INH Q4H prn shortness of breath 09/15/2010 12/13/2010 Inactive gabapentin 800 mg Tab RxNorm: 287076 1 Tablet(s) PO QD 09/15/2010 Inactive Prevacid 30 mg Cap RxNorm: 963685 1 Capsule(s) PO QD 09/15/201004/12 Inactive loratadine 10 mg Tab RxNorm: 758145 1 Tablet(s) PO QD 09/15/201011/23 Inactive Premarin 0.9 mg Tab RxNorm: 286072 1 Tablet(s) PO QD 09/15/201004/12 Inactive Synthroid 112 mcg Tab RxNorm: 312636 1 Tablet(s) PO QD 09/15/2010 Inactive metformin ER 500 mg 24 hr Tab RxNorm: 567485 1 Tablet(s) PO QD 08/2304/12/2011 Inactive Symbicort 160 mcg-4.5 mcg/Actuation Inhalation HFA Aer osol Inhaler RxNorm: 1088672 2 Puff(s) INH BID 09/15/2010 04/12/2011 Inactive diazepam 10 mg Tab RxNorm: 813863 1 Tablet(s) PO BID and PRN 200910/13/2010 Inactive Phentermine 37.5 mg Cap RxNorm: 689481 1 Capsule(s) PO QD 09/02/2010 11/02/2011 Inactive ProAir HFA 90 mcg/Actuation Aerosol Inhaler RxNorm: 7829920 2 Puff(s) INH Q4H prn shortness of breath 08/07/2010 No Stop Date Active Premarin 0.9 mg Tab RxNorm: 076927 1 Tablet(s) PO QD 08/07/201009/14 Inactive Loratadine 10 mg Tab RxNorm: 381804 1 Tablet(s) PO QD 08/07/201008/23 Inactive Lactulose 10 gram/15 mL Oral Soln RxNorm: 086895 1 Unit Dose PO QD 08/07/2010 02/12/2019 Inactive Zofran 4 mg Tab RxNorm: 560336 1 Tablet(s) PO Q4H prn nausea 2009 No Stop Date Active Gabapentin 800 mg Tab RxNorm: 918343 1 Tablet(s) PO QD 08/07/2010 Inactive Synthroid 112 mcg Tab RxNorm: 326732 1 Tablet(s) PO QD 08/07/2010 Inactive Metformin ER 500 mg 24 hr Tab RxNorm: 275611 1 Tablet(s) PO QD 07/2309/14/2010 Inactive Vitamin D 1,000 unit Tab RxNorm: 898787 1 Tablet(s) PO TID 08/07/2002/12/2019 Inactive Symbicort 160 mcg-4.5 mcg/Actuation Inhalation HFA Aer osol Inhaler RxNorm: 7134155 2 Puff(s) INH BID 08/07/2010 09/14/2010 Inactive Prevacid 30 mg Cap RxNorm: 057230 1 Capsule(s) PO QD 08/07/201009/14 Inactive Metformin ER 500 mg 24 hr Tab RxNorm: 172707 1 Tablet(s) PO QD 06/2308/06/2010 Inactive Vitamin D 1,000 unit Tab RxNorm: 803824 1 Tablet(s) PO TID 07/14/2008/06/2010 Inactive Synthroid 112 mcg Tab RxNorm: 945201 1 Tablet(s) PO QD 07/14/2010 Inactive Lactulose 10 gram/15 mL Oral Soln RxNorm: 197760 1 Unit Dose PO QD 07/14/2010 08/06/2010 Inactive Levaquin 500 mg Tab RxNorm: 643329 1 Tablet(s) PO QD 07/14/201007/27 Inactive Premarin 0.9 mg Tab RxNorm: 897714 1 Tablet(s) PO QD 07/14/201008/06 Inactive ProAir HFA 90 mcg/Actuation Aerosol Inhaler RxNorm: 1568017 2 Puff(s) INH Q4H prn shortness of breath 07/14/2010 No Stop Date Active Prevacid 30 mg Cap RxNorm: 767300 1 Capsule(s) PO QD 07/14/201008/06 Inactive Zofran 4 mg Tab RxNorm: 581059 1 Tablet(s) PO Q4H prn nausea 2009 No Stop Date Active Symbicort 160 mcg-4.5 mcg/Actuation Inhalation HFA Aer osol Inhaler RxNorm: 2942064 2 Puff(s) INH BID 07/14/2010 08/06/2010 Inactive Loratadine 10 mg Tab RxNorm: 732614 1 Tablet(s) PO QD 07/14/201007/23 Inactive Gabapentin 800 mg Tab RxNorm: 666618 1 Tablet(s) PO QD 07/14/2010 Inactive Metformin ER 500 mg 24 hr Tab RxNorm: 120282 1 Tablet(s) PO 010 07/13/2010 Inactive Diazepam 10 mg Tab RxNorm: 369462 1 Tablet(s) PO BID and PRN 200909/06/2010 Inactive Premarin 0.9 mg Tab RxNorm: 728755 1 Tablet(s) PO QD 06/09/201007/13 Inactive Zofran 4 mg Tab RxNorm: 005167 1 Tablet(s) PO Q4H prn nausea 2009 No Stop Date Active ProAir HFA 90 mcg/Actuation Aerosol Inhaler RxNorm: 8556780 2 Puff(s) INH Q4H prn shortness of breath 06/09/2010 No Stop Date Active Gabapentin 800 mg Tab RxNorm: 995907 1 Tablet(s) PO QD 06/09/2010 Inactive Loratadine 10 mg Tab RxNorm: 986414 1 Tablet(s) PO QD 06/09/201006/23 Inactive Lactulose 10 gram/15 mL Oral Soln RxNorm: 527019 1 Unit Dose PO QD 06/09/2010 07/13/2010 Inactive Prevacid 30 mg Cap RxNorm: 549275 1 Capsule(s) PO QD 06/09/201007/13 Inactive Synthroid 112 mcg Tab RxNorm: 868734 1 Tablet(s) PO QD 06/09/2010 Inactive Symbicort 160 mcg-4.5 mcg/Actuation Inhalation HFA Aer osol Inhaler RxNorm: 6000954 2 Puff(s) INH BID 06/09/2010 07/13/2010 Inactive Omnicef 300 mg Cap RxNorm: 233771 2 Capsule(s) PO QD 05/07/201005/20 Inactive Metformin 500 mg Tab RxNorm: 795295 1 Tablet(s) PO QD 05/06/201005/22 Inactive ProAir HFA 90 mcg/Actuation Aerosol Inhaler RxNorm: 7190371 2 Puff(s) INH Q4H prn shortness of breath 05/06/2010 No Stop Date Active lactulose 10 gram/15 mL Oral Soln RxNorm: 089850 1 Unit Dose PO QD 05/06/2010 06/10/2011 Inactive Loratadine 10 mg Tab RxNorm: 962590 1 Tablet(s) PO QD 05/06/201005/22 Inactive Synthroid 112 mcg Tab RxNorm: 785795 1 Tablet(s) PO QD 05/06/2010 Inactive Symbicort 160 mcg-4.5 mcg/Actuation Inhalation HFA Aer osol Inhaler RxNorm: 8614130 2 Puff(s) INH BID 05/06/2010 06/08/2010 Inactive Gabapentin 800 mg Tab RxNorm: 533550 1 Tablet(s) PO QD 05/06/2010 Inactive 16.2 mg-0.1037 mg-0.0194 mg Tab RxNorm: 5240667 2 Tablet(s) PO TID PRN for gas and cramping 05/06/2010 05/12/2010 Inactive Zofran 4 mg Tab RxNorm: 895423 1 Tablet(s) PO Q4H prn nausea 200904/13/2010 Inactive MS Contin 60 mg Tab RxNorm: 904070 3 Tablet(s) PO BID 04/09/201004/22 Inactive Soma 350 mg Tab RxNorm: 458819 2 Tablet(s) PO TID 04/09/2010 05/08/20 10 Inactive Symbicort 160 mcg-4.5 mcg/Actuation Inhalation HFA Aer osol Inhaler RxNorm: 1748183 2 Puff(s) INH BID 04/08/2010 05/05/2010 Inactive Doxycycline 100 mg Cap RxNorm: 7417940 1 Capsule(s) PO BID 04/08/20 10 04/17/2010 Inactive Triamterene-Hydrochlorothiazide 37.5 mg-25 mg Cap RxNorm: 19 8316 1 Capsule(s) PO QAM 04/08/2010 09/04/2010 Inactive fluoxetine 40 mg Cap RxNorm: 341276 1 Capsule(s) PO QAM 04/08/2010 Inactive Morphine SR 120 mg multiphase 24 hr Cap RxNorm: 935039 1 Capsul e(s) PO 03/11/2010 04/07/2010 Inactive Endocet 10 mg-325 mg Tab RxNorm: 2178536 1-2 Tablet(s) PO Q4H DE N PAIN 03/11/2010 04/09/2010 Inactive Savella 100 mg Tab RxNorm: 058114 1 Tablet(s) PO BID 03/10/201004/09 Inactive Soma 350 mg Tab RxNorm: 027846 1 Tablet(s) PO TID prn spasm 010 04/09/2010 Inactive Savella 100 mg Tab RxNorm: 773019 1 Tablet(s) PO BID 02/03/201004/09 Inactive Aspirin 81 mg Tab RxNorm: 571771 1 Tablet(s) PO QD No Start Date Active Zyrtec 10 mg Tab RxNorm: 6426706 1 Tablet(s) PO QD No Start Date Active One Touch Ultra Test Strips RxNorm: Misc test at least t wice daily. No Start Date Active coenzyme Q10 200 mg capsule RxNorm: 106958 1 Capsule(s) PO QD No Star t Date Active One Touch Ultra Test Strips RxNorm: InVt BID Zainab t blood sugar at least twice daily. No Start Date 11/10/2010 Inactive Gabapentin 800 mg Tab RxNorm: 032021 1 Tablet(s) PO QD No Start Date 05/05/2010 Inactive Abilify 5 mg tablet RxNorm: 626729 1 Tablet(s) PO QD No Start Date Inactive Chantix 1 mg Tab RxNorm: 753179 1 Tablet(s) PO BID No Start Date 10/22 Inactive Ozempic 0.25 mg or 0.5 mg (2 mg/1.5 mL) subcutaneous p en injector RxNorm: 7855887 .25 Milligram(s) SQ QW No Start Date 07/04/2019 Inactive lancets 28 gauge RxNorm: Miscellaneous As needed for blo od glucose sticks No Start Date 08/23/2013 Inactive potassium chloride ER 20 mEq tablet,extended release RxNorm: 661121 2 Tablet(s) PO QD No Start Date 09/26/2018 Inactive Ventolin HFA 90 mcg/actuation Aerosol Inhaler RxNorm: 571310 1 2 Puff(s) INH Q4H prn No Start Date 01/17/2012 Inactive potassium chloride ER 20 mEq tablet,extended release RxNorm: 911099 2 Tablet(s) PO QD No Start Date 10/19/2018 Inactive Januvia 100 mg tablet RxNorm: 730148 1 Tablet(s) PO QD No Start Date 09/10/2015 Inactive Medrol (Aníbal) 4 mg Tabs in a Dose Pack RxNorm: 034574 Tablet(s) PO N o Start Date 08/09/2011 Inactive as directed Zithromax Z-Aníbal 250 mg Tab RxNorm: 947002 Tablet(s) PO No Start Date 01/25/2012 Inactive as directed vitamin B6-vitamin E-magnesium tablet RxNorm: 1 Tablet(s ) PO QHS with INH No Start Date 03/30/2018 Inactive prednisone 20 mg Tab RxNorm: 383507 1 Tablet(s) PO TID for 1wk then 1 po BID for 1wk No Start Date 01/25/2012 Inactive furosemide 40 mg tablet RxNorm: 489521 1 Tablet(s) PO QAM No Start Date 10/09/2018 Inactive Vitamin D3 1000 units Capsule RxNorm: 1 Capsule(s) PO TID No S tart Date 03/19/2015 Inactive Zofran 4 mg Tab RxNorm: 066346 1 Tablet(s) PO Q4H prn nausea No Sta rt Date 04/13/2010 Inactive Premarin 0.625 mg/g Vaginal Cream RxNorm: 243315 1 Gram (s) VAG QHS 3 times a week No Start Date 09/22/2017 Inactive oxycodone 10 mg tablet RxNorm: 8470669 1-2 Tablet(s) PO QID as n eeded for pain No Start Date 11/04/2015 Inactive Nicoderm CQ 21 mg/24 hr daily Patch RxNorm: 577077 1 Applicatio n TD QD No Start Date 08/05/2015 Inactive Topamax 50 mg tablet RxNorm: 379657 1/2 Tablet(s) PO QH S for 1wk then 1 po q HS for 1wk then 2 po q HS No Start Date 06/27/2012 Inactive Chantix Starting Month Aníbal 0.5 mg (11)-1 mg (3x14) Tab s in a Dose Pack RxNorm: 523516 Tablet(s) PO as directed No Start Date 03/01/2011 Inactive Trulicity 0.75 mg/0.5 mL subcutaneous pen injector RxNorm: 1 617398 Milliliter(s) SQ No Start Date 07/04/2019 Inactive Medrol (Aníbal) 4 mg Tabs in a Dose Pack RxNorm: 027216 Tablet(s) PO N o Start Date 01/25/2012 Inactive as directed Duragesic 100 mcg/hr Transderm Patch RxNorm: 736951 2 A pplication TD Q48H for pain No Start Date 09/05/2013 Inactive Premarin 0.9 mg Tab RxNorm: 694183 1 Tablet(s) PO QD No Start Date Inactive Zithromax Z-Aníbal 250 mg Tab RxNorm: 380972 Tablet(s) PO as direc chinmay No Start Date 01/25/2012 Inactive ondansetron 8 mg disintegrating tablet RxNorm: 000458 1 Tablet(s) PO Q6H as needed No Start Date 10/10/2018 Inactive oxycodone 15 mg tablet RxNorm: 8353668 1 Tablet(s) PO QID as nee ded for pain No Start Date 03/05/2019 Inactive ProAir HFA 90 mcg/Actuation Aerosol Inhaler RxNorm: 105617 2 Puff(s) INH Q4H prn for wheezing or shortness of breath No Start Date 12/21/2011 Inactive pravastatin 40 mg tablet RxNorm: 868105 1/2 Tablet(s) PO QOD No Sta rt Date 04/09/2015 Inactive ipratropium-albuterol 0.5 mg-3 mg(2.5 mg base)/3 mL ne bulization soln RxNorm: 7839117 1 Unit Dose INH Q4H as needed No Start Date 09/09/2016 Inactive furosemide 40 mg tablet RxNorm: 300499 1 Tablet(s) PO QAM as ne eded No Start Date 09/24/2019 Inactive Vitamin D2 oral RxNorm: 4018 oral No Start Date 03/18/2015 Inacti ve pravastatin 40 mg tablet RxNorm: 963731 1/2 Tablet(s) PO QD No Star t Date 04/09/2015 Inactive ondansetron HCl 4 mg tablet RxNorm: 781784 1 Tablet(s) PO Q4H as needed for nausea and vomiting No Start Date 04/07/2016 Inactive furosemide 40 mg tablet RxNorm: 412224 2 Tablet(s) PO QAM No Start Date 09/26/2018 Inactive gabapentin 800 mg tablet RxNorm: 501356 1/2 Tablet(s) PO BID No Sta rt Date 06/21/2017 Inactive gabapentin 800 mg tablet RxNorm: 669002 1/2 Tablet(s) PO BID No Sta rt Date 07/05/2017 Inactive ProAir HFA 90 mcg/Actuation Aerosol Inhaler RxNorm: 3581478 2 Puff(s) INH Q4H prn shortness of breath No Start Date 05/05/2010 Inactive scopolamine 1 mg over 3 days transdermal patch RxNorm: 85951 2 1 Application TD behind ear. Take off after three days No Start Date 10/10/2018 Inactive Metformin 500 mg Tab RxNorm: 308658 1 Tablet(s) PO QD No Start Date 0 05/05/2010 Inactive MS Contin 200 mg Tab RxNorm: 894359 1 Tablet(s) PO BID No Start Date 08/20/2011 Inactive Belladonna-Phenobarbital 48 mg tablet,extended release RxNor m: 2 Tablet(s) PO TID No Start Date 06/04/2016 Inactive Synthroid 112 mcg Tab RxNorm: 756375 1 Tablet(s) PO QD No Start Date 05/05/2010 Inactive Zegerid 40 mg-1.1 gram Cap RxNorm: 554512 1 Capsule(s) PO QD No Sta rt Date 01/25/2012 Inactive Premarin 0.625 mg/g Vaginal Cream RxNorm: 195592 VAG In sert 1gm vaginally at bedtime 3 times weekly No Start Date 01/17/2011 Inactive potassium chloride ER 20 mEq tablet,extended release RxNorm: 610317 1 Tablet(s) PO QD No Start Date 04/24/2019 Inactive methocarbamol 750 mg tablet RxNorm: 439640 2 Tablet(s) PO TID as needed for muscle spasm No Start Date 07/08/2014 Inactive Biaxin XL Aníbal 500 mg 24 hr Tab RxNorm: 400098 Tablet(s) PO as d irected No Start Date 04/24/2013 Inactive Vitamin D3 1,000 unit tablet RxNorm: 447076 3 Tablet(s) PO QD No St art Date 06/01/2017 Inactive Morphine SR 120 mg multiphase 24 hr Cap RxNorm: 084065 1 Capsul e(s) PO BID No Start Date 04/09/2010 Inactive Silvadene 1 % topical cream RxNorm: 656550 1 Application TOP BI D to burn area No Start Date 01/31/2017 Inactive Prednisone 20 mg Tab RxNorm: 091131 1 Tablet(s) PO TID for 3days then BID for 4days No Start Date 01/25/2012 Inactive gabapentin 600 mg tablet RxNorm: 554173 1 Tablet(s) PO BID No Start Date 01/21/2015 Inactive topiramate 50 mg tablet RxNorm: 014662 1 Tablet(s) PO QHS No Start Date 03/30/2018 Inactive Januvia 100 mg tablet RxNorm: 623230 1/2 Tablet(s) PO QD No Start D ate 12/25/2015 Inactive Diazepam 10 mg Tab RxNorm: 795505 1 Tablet(s) PO BID and PRN No Sta rt Date 06/08/2010 Inactive Medication Administered No Medication Administered data Immunizations Vaccine Codes Date Status Influenza CVX: 141 09/28/2012 Pneumovax Unknown 09/28/2012 Influenza (Adult) CVX: 141 09/02/2010 Results No Results data Procedures Procedure Codes Date THER/PROPH/DIAG INJ SC/IM CPT-4: 13956 07/10/2019 METHYLPREDNISOLONE INJECTION CPT-4: J2930 07/10/2019 URINALYSIS NONAUTO W/O SCOPE CPT-4: 14007 09/06/2018 URINE CULTURE/ COLONY COUNT CPT-4: 39700 09/06/2018 DRAIN/INJECT JOINT/BURSA CPT-4: 86194 04/29/2017 TRIAMCINOLONE ACET INJ NOS CPT-4: J3301 04/29/2017 DEXAMETHASONE SODIUM PHOS CPT-4: J1100 04/29/2017 INFLUENZA ASSAY W/OPTIC CPT-4: 23002 12/01/2016 RESPIRATORY CULTURE & STAIN CPT-4: 79762 07/09/2016 TB INTRADERMAL TEST CPT-4: 32863 04/21/2016 DRAIN/INJECT JOINT/BURSA CPT-4: 60001 11/07/2013 METHYLPREDNISOLONE 40 MG INJ CPT-4: J1030 11/07/2013 TRIAMCINOLONE ACET INJ NOS CPT-4: J3301 11/07/2013 DRAIN/INJECT JOINT/BURSA CPT-4: 82757 08/08/2013 METHYLPREDNISOLONE 40 MG INJ CPT-4: J1030 08/08/2013 TRIAMCINOLONE ACET INJ NOS CPT-4: J3301 08/08/2013 FLU VACCINE 3 YRS & > IM UP 64 CPT-4: 49567 2 PNEUMOCOCCAL VACC 23 ADITYA IM CPT-4: 81852 09/28/2012 IMMUNIZATION ADMIN CPT-4: 33855 09/28/2012 IMMUNIZATION ADMIN EACH ADD CPT-4: 49609 09/28/2012 FLU VACCINE 3 YRS & > IM UP 64 CPT-4: 79625 0 IMMUNIZATION ADMIN CPT-4: 74170 09/02/2010 METHYLPREDNISOLONE INJECTION CPT-4: J2930 05/07/2010 THER/PROPH/DIAG INJ SC/IM CPT-4: 35098 05/07/2010 Vital Signs Date Vital 10/30/2019 Blood [...] 1: 122/78 Code: 8480-6 BMI: 29.5 Code: 22299-8 Heart Rate 1: 76 bpm Height: 5'4" Respiratory Rate: 20 bpm SpO2: 96% Tempera ture: 37.0 (C) / 98.6 (F) Weight: 172 lbs 01/25/2019 Blood Pressure 1: 132/80 Code: 8480-6 BMI: 29.7 Code: 48042-6 Heart Rate 1: 84 bpm Height: 5'4" Respiratory Rate: 22 bpm SpO2: 98% Tempera ture: 36.9 (C) / 98.4 (F) Weight: 173 lbs 01/03/2019 Blood Pressure 1: 116/70 Code: 8480-6 BMI: 29.5 Code: 49576-8 Heart Rate 1: 92 bpm Height: 5'4" Respiratory Rate: 24 bpm SpO2: 98% Tempera ture: 37.2 (C) / 98.9 (F) Weight: 172 lbs 11/21/2018 Blood Pressure 1: 146/82 Code: 8480-6 BMI: 28.2 Code: 29397-5 Heart Rate 1: 88 bpm Height: 5'4" Respiratory Rate: 22 bpm SpO2: 97% Tempera ture: 36.9 (C) / 98.4 (F) Weight: 164 lbs 10/27/2018 Blood Pressure 1: 122/70 Code: 8480-6 BMI: 27.6 Code: 89687-2 Heart Rate 1: 88 bpm Height: 5'4" Respiratory Rate: 20 bpm SpO2: 96% Tempera ture: 36.8 (C) / 98.3 (F) Weight: 161 lbs 10/18/2018 Blood Pressure 1: 126/70 Code: 8480-6 BMI: 28.3 Code: 95542-7 Heart Rate 1: 76 bpm Height: 5'4" Respiratory Rate: 20 bpm SpO2: 95% Tempera ture: 37.0 (C) / 98.6 (F) Weight: 165 lbs 09/27/2018 Blood Pressure 1: 124/78 Code: 8480-6 BMI: 27.1 Code: 15695-4 Heart Rate 1: 88 bpm Height: 5'4" Respiratory Rate: 20 bpm SpO2: 98% Tempera ture: 36.4 (C) / 97.6 (F) Weight: 158 lbs 09/14/2018 Blood Pressure 1: 140/72 Code: 8480-6 BMI: 26.1 Code: 81786-7 Heart Rate 1: 100 bpm Height: 5'4" Respiratory Rate: 20 bpm SpO2: 97% Tempera ture: 36.9 (C) / 98.4 (F) Weight: 152 lbs 09/06/2018 Blood Pressure 1: 156/82 Code: 8480-6 BMI: 26.3 Code: 76565-0 Heart Rate 1: 100 bpm Height: 5'4" Respiratory Rate: 28 bpm SpO2: 95% Tempera ture: 37.2 (C) / 98.9 (F) Weight: 153 lbs 08/16/2018 Blood Pressure 1: 130/78 Code: 8480-6 Heart Rate 1: 87 bpm Respiratory Rate: 24 bpm SpO2: 94% Temperature: 36.9 (C) / 98.4 (F) We ight: 147 lbs 8 oz 07/07/2018 Blood Pressure 1: 116/78 Code: 8480-6 BMI: 22.7 Code: 51524-3 Heart Rate 1: 88 bpm Height: 5'4" Respiratory Rate: 22 bpm SpO2: 98% Tempera ture: 36.5 (C) / 97.7 (F) Weight: 132 lbs 05/31/2018 Blood Pressure 1: 128/78 Code: 8480-6 BMI: 22.3 Code: 62148-5 Heart Rate 1: 92 bpm Height: 5'4" Respiratory Rate: 26 bpm SpO2: 94% Tempera ture: 36.7 (C) / 98.1 (F) Weight: 130 lbs 03/31/2018 Blood Pressure 1: 136/78 Code: 8480-6 BMI: 21.5 Code: 72987-1 Heart Rate 1: 76 bpm Height: 5'4" Respiratory Rate: 24 bpm SpO2: 95% Tempera ture: 36.8 (C) / 98.3 (F) Weight: 125 lbs 01/26/2018 Blood Pressure 1: 142/64 Code: 8480-6 BMI: 20.6 Code: 50317-3 Heart Rate 1: 90 bpm Height: 5'4" Respiratory Rate: 24 bpm SpO2: 92% Tempera ture: 36.3 (C) / 97.3 (F) Weight: 120 lbs 10/26/2017 Blood Pressure 1: 124/70 Code: 8480-6 BMI: 20.3 Code: 20214-3 Heart Rate 1: 76 bpm Height: 5'4" Respiratory Rate: 22 bpm SpO2: 94% Tempera ture: 36.7 (C) / 98.1 (F) Weight: 118 lbs 09/23/2017 Blood Pressure 1: 106/70 Code: 8480-6 BMI: 19.2 Code: 28618-8 Heart Rate 1: 76 bpm Height: 5'4" Respiratory Rate: 20 bpm SpO2: 94% Tempera ture: 36.8 (C) / 98.3 (F) Weight: 112 lbs 08/12/2017 Blood Pressure 1: 116/68 Code: 8480-6 BMI: 20.1 Code: 10733-0 Heart Rate 1: 80 bpm Height: 5'4" Respiratory Rate: 22 bpm SpO2: 95% Tempera ture: 36.8 (C) / 98.2 (F) Weight: 117 lbs 07/06/2017 Blood Pressure 1: 136/78 Code: 8480-6 BMI: 20.6 Code: 94912-9 Heart Rate 1: 76 bpm Height: 5'4" Respiratory Rate: 24 bpm SpO2: 96% Tempera ture: 36.8 (C) / 98.2 (F) Weight: 120 lbs 06/02/2017 Blood Pressure 1: 112/70 Code: 8480-6 Heart Rate 1: 92 bpm Height: 5'4" Respiratory Rate: 24 bpm SpO2: 95% Temperature: 37.0 (C) / 98.6 (F) Weight: 04/29/2017 Blood Pressure 1: 94/52 Code: 8480-6 BMI: 19.6 C ode: 83085-4 Heart Rate 1: 84 bpm Height: 5'4" [...] 92/58 Code: 8480-6 BMI: 19.2 C ode: 55683-1 Heart Rate 1: 84 bpm Height: 5'4" Respiratory Rate: 26 bpm SpO2: 95% Tempera ture: 36.7 (C) / 98.0 (F) Weight: 112 lbs 12/01/2016 Blood Pressure 1: 114/70 Code: 8480-6 BMI: 19.2 Code: 15450-1 Heart Rate 1: 96 bpm Height: 5'4" Respiratory Rate: 28 bpm SpO2: 93% Tempera ture: 38.3 (C) / 101.0 (F) Weight: 112 lbs 10/27/2016 Blood Pressure 1: 126/66 Code: 8480-6 BMI: 19.6 Code: 81837-0 Heart Rate 1: 92 bpm Height: 5'4" Respiratory Rate: 28 bpm SpO2: 90% Tempera ture: 36.8 (C) / 98.3 (F) Weight: 114 lbs 09/09/2016 Blood Pressure 1: 126/74 Code: 8480-6 Heart Rate 1: 104 bpm Height: 5'4" Respiratory Rate: 32 bpm SpO2: 88% Temperature: 37 .2 (C) / 99.0 (F) 08/26/2016 Blood Pressure 1: 134/82 Code: 8480-6 BMI: 22.0 Code: 24909-0 Heart Rate 1: 84 bpm Height: 5'4" Respiratory Rate: 24 bpm SpO2: 94% Tempera ture: 36.8 (C) / 98.3 (F) Weight: 128 lbs 05/21/2016 Blood Pressure 1: 142/80 Code: 8480-6 BMI: 21.6 Code: 60149-7 Heart Rate 1: 104 bpm Height: 5'4" Respiratory Rate: 22 bpm SpO2: 93% Tempera ture: 36.0 (C) / 96.8 (F) Weight: 126 lbs 03/25/2016 Blood Pressure 1: 126/62 Code: 8480-6 Heart Rate 1: 88 bpm Respiratory Rate: 20 bpm SpO2: 92% Temperature: 36.8 (C) / 98.3 (F) We ight: 130 lbs 01/23/2016 Blood Pressure 1: 146/82 Code: 8480-6 BMI: 24.1 Code: 37901-3 Heart Rate 1: 92 bpm Height: 5'3" Respiratory Rate: 22 bpm Temperature: 37 .1 (C) / 98.8 (F) Weight: 136 lbs 12/26/2015 Blood Pressure 1: 142/78 Code: 8480-6 BMI: 24.6 Code: 66107-8 Heart Rate 1: 78 bpm Height: 5'3" Respiratory Rate: 20 bpm Temperature: 36 .7 (C) / 98.1 (F) Weight: 139 lbs 12/03/2015 Blood Pressure 1: 126/60 Code: 8480-6 BMI: 24.6 Code: 14372-2 Heart Rate 1: 100 bpm Height: 5'3" Respiratory Rate: 28 bpm Temperature: 37 .6 (C) / 99.6 (F) Weight: 139 lbs 09/10/2015 Blood Pressure 1: 124/64 Code: 8480-6 BMI: 23.7 Code: 01822-3 Heart Rate 1: 88 bpm Height: 5'3" Respiratory Rate: 24 bpm SpO2: 95% Tempera ture: 36.4 (C) / 97.6 (F) Weight: 134 lbs 08/06/2015 Blood Pressure 1: 114/76 Code: 8480-6 BMI: 23.2 Code: 97249-1 Heart Rate 1: 88 bpm Height: 5'3" Respiratory Rate: 22 bpm Temperature: 36 .6 (C) / 97.9 (F) Weight: 131 lbs 07/18/2015 Blood Pressure 1: 144/78 Code: 8480-6 BMI: 23.7 Code: 41987-5 Heart Rate 1: 84 bpm Height: 5'3" Respiratory Rate: 20 bpm Temperature: 37 .2 (C) / 99.0 (F) Weight: 134 lbs 04/10/2015 Blood Pressure 1: 110/64 Code: 8480-6 Heart Rate 1: 80 bpm Height: Respiratory Rate: 20 bpm Temperature: 37.1 (C) / 98.8 (F) Weight: 03/05/2015 Blood Pressure 1: 136/80 Code: 8480-6 BMI: 23.9 Code: 40245-9 Heart Rate 1: 76 bpm Height: 5'3" Respiratory Rate: 24 bpm Temperature: 37 .0 (C) / 98.6 (F) Weight: 135 lbs 01/30/2015 Blood Pressure 1: 142/80 Code: 8480-6 BMI: 23.0 Code: 79925-1 Heart Rate 1: 96 bpm Height: 5'3" Respiratory Rate: 22 bpm Temperature: 36 .2 (C) / 97.2 (F) Weight: 130 lbs 01/02/2015 Blood Pressure 1: 124/70 Code: 8480-6 BMI: 23.4 Code: 71670-9 Heart Rate 1: 84 bpm Height: 5'3" Respiratory Rate: 24 bpm SpO2: 95% Tempera ture: 36.9 (C) / 98.5 (F) Weight: 132 lbs 10/03/2014 Blood Pressure 1: 106/68 Code: 8480-6 BMI: 22.5 Code: 00839-8 Heart Rate 1: 88 bpm Height: 5'3" Respiratory Rate: 24 bpm Temperature: 37 .0 (C) / 98.6 (F) Weight: 127 lbs 08/27/2014 Blood Pressure 1: 124/68 Code: 8480-6 BMI: 21.1 Code: 50775-7 Heart Rate 1: 88 bpm Height: 5'3" [...] 1: 120/70 Code: 8480-6 BMI: 19.2 Code: 94089-4 Heart Rate 1: 70 bpm Height: 5'4" Respiratory Rate: 20 bpm Temperature: 36 .9 (C) / 98.4 (F) Weight: 112 lbs 06/28/2013 Blood Pressure 1: 102/68 Code: 8480-6 BMI: 19.6 Code: 92279-8 Heart Rate 1: 76 bpm Height: 5'4" Respiratory Rate: 20 bpm Temperature: 36 .8 (C) / 98.2 (F) Weight: 114 lbs 05/31/2013 Blood Pressure 1: 106/70 Code: 8480-6 BMI: 18.9 Code: 89159-8 Heart Rate 1: 100 bpm Height: 5'4" Respiratory Rate: 20 bpm Temperature: 36 .4 (C) / 97.6 (F) Weight: 110 lbs 05/03/2013 Blood Pressure 1: 126/70 Code: 8480-6 BMI: 19.1 Code: 29822-7 Heart Rate 1: 88 bpm Height: 5'4" Respiratory Rate: 20 bpm Temperature: 37 .1 (C) / 98.8 (F) Weight: 111 lbs 04/25/2013 Blood Pressure 1: 114/68 Code: 8480-6 BMI: 19.4 Code: 79012-2 Heart Rate 1: 92 bpm Height: 5'4" Respiratory Rate: 24 bpm SpO2: 96% Tempera ture: 37.7 (C) / 99.8 (F) Weight: 113 lbs 03/08/2013 Blood Pressure 1: 9468 Code: 8480-6 BMI: 21.3 C ode: 40904-3 Heart Rate 1: 88 bpm Height: 5'4" Respiratory Rate: 24 bpm Temperature: 37 .0 (C) / 98.6 (F) Weight: 124 lbs 02/07/2013 Blood Pressure 1: 106/64 Code: 8480-6 BMI: 21.8 Code: 92668-4 Heart Rate 1: 84 bpm Height: 5'4" Respiratory Rate: 22 bpm Temperature: 36 .8 (C) / 98.2 (F) Weight: 127 lbs 01/10/2013 Blood Pressure 1: 122/68 Code: 8480-6 BMI: 21.6 Code: 55742-0 Heart Rate 1: 94 bpm Height: 5'4" SpO2: 94% Temperature: 36.7 (C) / 98.1 (F) Weight: 126 lbs 09/28/2012 Blood Pressure 1: 124/78 Code: 8480-6 BMI: 24.9 Code: 40313-4 Heart Rate 1: 92 bpm Height: 5'4" Respiratory Rate: 20 bpm Temperature: 36 .7 (C) / 98.1 (F) Weight: 145 lbs 06/28/2012 Blood Pressure 1: 134/80 Code: 8480-6 BMI: 24.9 Code: 64314-0 Heart Rate 1: 76 bpm Height: 5'4" Respiratory Rate: 20 bpm Temperature: 36 .8 (C) / 98.2 (F) Weight: 145 lbs 05/03/2012 Blood Pressure 1: 108/62 Code: 8480-6 BMI: 25.6 Code: 57757-3 Heart Rate 1: 88 bpm Height: 5'4" Temperature: 36.2 (C) / 97.2 (F) Weight: 149 lbs 03/01/2012 Blood Pressure 1: 124/66 Code: 8480-6 BMI: 25.1 Code: 98913-7 Heart Rate 1: 76 bpm Height: 5'4" Respiratory Rate: 20 bpm Temperature: 36 .6 (C) / 97.9 (F) Weight: 146 lbs 01/26/2012 Blood Pressure 1: 118/82 Code: 8480-6 BMI: 25.1 Code: 83474-1 Heart Rate 1: 74 bpm Height: 5'4" Temperature: 36.8 (C) / 98.2 (F) Weight: 146 lbs 11/03/2011 Blood Pressure 1: 126/80 Code: 8480-6 BMI: 27.3 Code: 89684-0 Heart Rate 1: 72 bpm Height: 5'4" [...] prozac Encounters Encounter Performer Location Codes Date ([id number]) OFFICE/OUTPATIENT VISIT EST Diagnosis: Chronic pain syndrome[ICD10: G89.4] Diagnosis: Lumbar degenerative disc disease[ICD10: M51.36] Diagnosis: Muscle spasm[ICD10: M62.838] Vika RENTERIA [facility] CPT-4: 72489 10/30/2019 ([id number]) OFFICE/OUTPATIENT VISIT EST Diagnosis: Chronic pain syndrome[ICD10: G89.4] Vika ESCALERAWrapp CPT-4: 28511 10/25/2019 ([id number]) OFFICE/OUTPATIENT VISIT EST Diagnosis: Epigastric pain[ICD10: R10.13] Diagnosis: Nausea[ICD10: R11.0] Diagnosis: Chronic obstructive pulmonary disease, unspecified[ICD10: J44.9] Vika RENTERIA [facility] CPT-4: 43482 07/26/2019 ([id number]) OFFICE/OUTPATIENT VISIT EST Diagnosis: Chronic obstructive pulmonary disease with (acute) exacerbation[ICD10: J44.1] Diagnosis: Chronic respiratory failure with hypoxia[ICD10: J96.11] Diagnosis: Other fatigue[ICD10: R53.83] Diagnosis: Edema, unspecified[ICD10: R60.9] Vika RENTERIA [employer] [facility] CPT-4: 13208 07/19/2019 ([id number]) OFFICE/OUTPATIENT VISIT EST Diagnosis: Chronic obstructive pulmonary disease with acute lower respiratory infection[ICD10: J44.0] Vika RENTERIA [employer] [facility] CPT-4: 29177 07/10/2019 ([id number]) OFFICE/OUTPATIENT VISIT EST Diagnosis: Type 2 diabetes mellitus with hyperglycemia[ICD10: E11.65] Diagnosis: Other infective otitis externa, left ear[ICD10: H60.392] Vika RENTERIA [employer] [facility] CPT-4: 12665 06/05/2019 ([id number]) OFFICE/OUTPATIENT VISIT EST Diagnosis: Chronic obstructive pulmonary disease with (acute) exacerbation[ICD10: J44.1] Diagnosis: Type 2 diabetes mellitus with hyperglycemia[ICD10: E11.65] Vika RENTERIA [employer] [facility] CPT-4: 20688 05/03/2019 ([id number]) OFFICE/OUTPATIENT VISIT EST Diagnosis: Type 2 diabetes mellitus with hyperglycemia[ICD10: E11.65] Diagnosis: Abnormal weight gain[ICD10: R63.5] Diagnosis: Chronic obstructive pulmonary disease with acute lower respiratory infection[ICD10: J44.0] Vika RENTERIA [employer] [facility] CPT-4: 76818 04/11/2019 ([id number]) OFFICE/OUTPATIENT VISIT EST Diagnosis: Hypothyroidism, unspecified[ICD10: E03.9] Diagnosis: Abnormal weight gain[ICD10: R63.5] Diagnosis: Other fatigue[ICD10: R53.83] Vika RENTERIA [employer] [facility] CPT-4: 13357 03/16/2019 ([id number]) OFFICE/OUTPATIENT VISIT EST Diagnosis: Abnormal weight gain[ICD10: R63.5] Diagnosis: Chronic obstructive pulmonary disease, unspecified[ICD10: J44.9] Diagnosis: Other chronic pain[ICD10: G89.29] Vika RENTERIA DO [facility] CPT-4: 17284 02/13/2019 ([id number]) OFFICE/OUTPATIENT VISIT EST Diagnosis: Chronic pain syndrome[ICD10: G89.4] Diagnosis: Edema, unspecified[ICD10: R60.9] Diagnosis: Major depressive disorder, 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] Diagnosis: Other fatigue[ICD10: R53.83] Vika RENTERIA DO [facility] CPT-4: 05346 01/25/2019 ([id number]) OFFICE/OUTPATIENT VISIT EST Diagnosis: Localized edema[ICD10: R60.0] Diagnosis: Other forms of dyspnea[ICD10: R06.09] Diagnosis: Hypothyroidism, unspecified[ICD10: E03.9] Vika RENTERIA DO [facility] CPT-4: 60902 01/03/2019 ([id number]) OFFICE/OUTPATIENT VISIT EST Diagnosis: Abnormal weight gain[ICD10: R63.5] Diagnosis: Localized edema[ICD10: R60.0] Diagnosis: Chronic pain syndrome[ICD10: G89.4] Vika RENTERIA DO [facility] CPT-4: 26515 11/21/2018 ([id number]) OFFICE/OUTPATIENT VISIT EST Diagnosis: Localized edema[ICD10: R60.0] Vika RENTERIA DO [facility]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
--- OUTSIDE RECORDS SUMMARY | 2020-04-24 23:46 | XMS REPORT | CCD ---
Author Author Yana Renteria D.O. 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 Role Phone Vika Renteria D.O., PP Unavailable CCM Unavailable Summary Purpose Interface Exchange Insurance Providers Payer name Policy type / Coverage type Covered alliance party ID Effective Begin Date Effective End Date [employer] [facility] [place] Medicaid [id number] 2018 U nknown Family History Family History data not found Social History Social History Element Codes Description Effective Dates Marital status Unknown 06/28/[address]: 62883979 Currently smokes tobacco 05/2013 Allergies, Adverse Reactions, [...] MS Contin 100 mg tablet,extended release RxNorm: 939938 1 Table t(s) Oral QD 10/30/2019 11/29/2019 Active ferrous sulfate 325 mg (65 mg iron) tablet RxNorm: 318690 1 Tab let(s) Oral QD 10/30/2019 No Stop Date Active Relistor 150 mg tablet RxNorm: 7225482 TAKE THREE TABLETS BY BENOIT TH DAILY 10/25/2019 No Stop Date Active oxycodone 15 mg tablet RxNorm: 2767352 1 Tablet(s) Oral four times a day as needed for pain 10/25/2019 10/25/2019 Inactive pantoprazole 40 mg tablet,delayed release RxNorm: 014569 1 Tabl et(s) Oral QD 10/25/2019 No Stop Date Active metformin 500 mg tablet RxNorm: 284069 1 Tablet(s) Oral QD 10/25/20 19 No Stop Date Active levothyroxine 25 mcg tablet RxNorm: 275816 1 Tablet(s) Oral QAM 02/201912/23/2019 Active Minipress 2 mg capsule RxNorm: 277886 1 Capsule(s) Oral QAM and 3 at bedtime 10/25/2019 No Stop Date Active Lancets, Super Thin RxNorm: 1 Unit Dose Miscellaneous QD 9 11/27/2020 Active Cymbalta 60 mg capsule,delayed release RxNorm: 008202 1 Capsule (s) Oral QAM 10/25/2019 No Stop Date Active Cymbalta 30 mg capsule,delayed release RxNorm: 279436 1 Capsule (s) Oral QAM 10/25/2019 No Stop Date Active levothyroxine 25 mcg tablet RxNorm: 526903 1 Tablet(s) Oral QAM 02/201910/24/2019 Inactive MS Contin 100 mg tablet,extended release RxNorm: 437609 1 Tablet(s) Oral two times a day replaces fentanyl 10/25/2019 10/25/2019 Inactive Premarin 0.45 mg tablet RxNorm: 774716 TAKE ONE TABLET BY MOUTH DAILY 10/24/2019 No Stop Date Active Duragesic 100 mcg/hr transdermal patch RxNorm: 589174 2 Application TD Q48H for pain 10/18/2019 10/24/2019 Inactive gabapentin 300 mg capsule RxNorm: 964668 TAKE ONE CAPSULE BY MO UTH TWICE A DAY 10/16/2019 No Stop Date Active cyclobenzaprine 10 mg tablet RxNorm: 882138 TAKE ONE TA BLET BY MOUTH THREE TIMES A DAY NEEDED 09/27/2019 No Stop Date Active ProAir HFA 90 mcg/actuation aerosol inhaler RxNorm: 580333 INHALE ONE PUFF BY MOUTH EVERY 4 HOURS FOR WHEEZING OR FOR SHORTNESS OF BREATH 09/25/2019 No Stop Date Active furosemide 40 mg tablet RxNorm: 164287 1 Tablet(s) Oral QAM as needed 09/25/2019 09/25/2019 Inactive Relistor 150 mg tablet RxNorm: 4106200 TAKE THREE TABLETS BY BENOIT TH DAILY 09/25/2019 10/24/2019 Inactive oxycodone 15 mg tablet RxNorm: 4372369 1 Tablet(s) PO QID as nee ded for pain 09/21/2019 10/24/2019 Inactive Duragesic 100 mcg/hr transdermal patch RxNorm: 044892 2 Application TD Q48H for pain 09/19/2019 10/17/2019 Inactive Daliresp 500 mcg tablet RxNorm: 0716729 1 Tablet(s) Oral QD 019 03/08/2020 Active potassium chloride ER 20 mEq tablet,extended release RxNorm: 059574 TAKE ONE TABLET BY MOUTH DAILY 07/25/2019 01/20/2020 Active Relistor 150 mg tablet RxNorm: 5194733 TAKE THREE TABLETS BY BENOIT TH DAILY 07/25/2019 07/30/2019 Inactive cyclobenzaprine 10 mg tablet RxNorm: 302255 TAKE ONE TA BLET BY MOUTH THREE TIMES A DAY NEEDED 07/25/2019 09/22/2019 Inactive fluoxetine 40 mg capsule RxNorm: 603621 TAKE ONE CAPSULE BY BENOIT TH EVERY MORNING 07/11/2019 10/24/2019 Inactive Medrol (Aníbal) 4 mg tablets in a dose pack RxNorm: 796711 6 Tablet(s) PO QD --then as directed 07/10/2019 07/15/2019 Inactive omeprazole 40 mg capsule,delayed release RxNorm: 348067 1 Capsule(s) PO QD for stomach TAKE ONE CAPSULE BY MOUTH DAILY 07/10/2019 10/24/2019 Inactive Augmentin 875 mg-125 mg tablet RxNorm: 847549 1 Tablet(s) PO BID 07/16/2019 Inactive Trulicity 0.75 mg/0.5 mL subcutaneous pen injector RxNorm: 1 433079 0.75 Milliliter(s) SQ weekly 07/05/2019 10/24/2019 Inactive Compazine 10 mg tablet RxNorm: 653071 TAKE ONE TABLET B Y MOUTH FOUR TIMES A DAY NEEDED FOR NAUSEA 06/20/2019 07/19/2019 Inactive ProAir HFA 90 mcg/actuation aerosol inhaler RxNorm: 486174 INHALE ONE PUFF BY MOUTH EVERY 4 HOURS FOR WHEEZING OR FOR SHORTNESS OF BREATH 06/20/2019 06/23/2019 Inactive Daliresp 500 mcg tablet RxNorm: 8711957 TAKE ONE TABLET BY MOUTH DAILY 06/12/2019 09/10/2019 Inactive fumsblcb-ndzhzwuye-ytpnsyxkm 3.5 mg/mL-10,000 unit/mL- 1 % ear solution RxNorm: 651515 4 Drop(s) otic (ear) TID to left ear 06/05/2019 10/24/2019 Inac tive furosemide 40 mg tablet RxNorm: 741036 TAKE ONE TABLET BY MOUTH EVERY MORNING 05/26/2019 07/09/2019 Inactive Duragesic 100 mcg/hr transdermal patch RxNorm: 714804 2 Application TD Q48H for pain 05/16/2019 06/14/2019 Inactive oxycodone 15 mg tablet RxNorm: 4913954 1 Tablet(s) PO QID as nee ded for pain 05/10/2019 09/20/2019 Inactive doxycycline hyclate 100 mg capsule RxNorm: 5110967 1 Capsule(s) PO BID 05/03/2019 05/12/2019 Inactive prednisone 20 mg tablet RxNorm: 576228 1 Tablet(s) PO T ID for 3 days then 1 po BID for 3 days then one daily for 3 days 05/03/2019 07/11/2019 Inactiv e Ozempic 0.25 mg or 0.5 mg (2 mg/1.5 mL) subcutaneous p en injector RxNorm: 2223039 0.5 Milligram(s) SQ QW 05/03/2019 07/09/2019 Inactive fluconazole 100 mg tablet RxNorm: 384057 1 Tablet(s) PO QD 05/03/2005/07/2019 Inactive Premarin 0.45 mg tablet RxNorm: 666182 TAKE ONE TABLET BY MOUTH DAILY 05/03/2019 10/23/2019 Inactive potassium chloride ER 20 mEq tablet,extended release RxNorm: 719659 1 Tablet(s) PO QD 04/27/2019 07/25/2019 Inactive potassium chloride ER 20 mEq tablet,extended release RxNorm: 025211 1 Tablet(s) PO QD 04/25/2019 04/26/2019 Inactive Compazine 10 mg tablet RxNorm: 012247 1 Tablet(s) PO QID as nee ded for nausea 04/25/2019 05/04/2019 Inactive ProAir HFA 90 mcg/actuation aerosol inhaler RxNorm: 478389 INHALE ONE PUFF BY MOUTH EVERY 4 HOURS FOR WHEEZING OR FOR SHORTNESS OF BREATH 04/12/2019 06/10/2019 Inactive Medrol (Aníbal) 4 mg tablets in a dose pack RxNorm: 122012 6 Tablet(s) PO QD --then as directed 04/11/2019 04/16/2019 Inactive Symbicort 160 mcg-4.5 mcg/actuation HFA aerosol inhaler RxNo rm: 4063275 2 Puff(s) INH BID 04/10/2019 10/06/2019 Inactive levothyroxine 50 mcg tablet RxNorm: 541234 1 Tablet(s) PO QD 201810/24/2019 Inactive gabapentin 300 mg capsule RxNorm: 600122 1 Capsule(s) PO BID 201810/02/2019 Inactive Symbicort 160 mcg-4.5 mcg/actuation HFA aerosol inhaler RxNo rm: 0906972 2 Puff(s) INH BID 04/06/2019 04/09/2019 Inactive oxycodone 15 mg tablet RxNorm: 3738747 1 Tablet(s) PO QID as nee ded for pain 04/05/2019 05/09/2019 Inactive levothyroxine 50 mcg tablet RxNorm: 217078 1 Tablet(s) PO QD 201804/09/2019 Inactive furosemide 40 mg tablet RxNorm: 340658 TAKE ONE TABLET BY MOUTH EVERY MORNING 03/21/2019 04/19/2019 Inactive levothyroxine 50 mcg tablet RxNorm: 675443 TAKE ONE TABLET BY M OUTH DAILY 03/21/2019 03/27/2019 Inactive Duragesic 100 mcg/hr transdermal patch RxNorm: 920932 2 Application TD Q48H for pain 03/13/2019 04/11/2019 Inactive oxycodone 15 mg tablet RxNorm: 7769226 1 Tablet(s) PO QID as nee ded for pain 03/06/2019 04/04/2019 Inactive Relistor 150 mg tablet RxNorm: 7395839 3 Tablet(s) PO QD 02/28/2019 0 05/28/2019 Inactive cyclobenzaprine 10 mg tablet RxNorm: 755103 1 Tablet(s) PO TID as needed 02/28/2019 05/28/2019 Inactive phentermine 37.5 mg tablet RxNorm: 858907 1 Tablet(s) PO QAM 201803/15/2019 Inactive Duragesic 100 mcg/hr transdermal patch RxNorm: 166726 2 Application TD Q48H for pain 02/09/2019 03/10/2019 Inactive Daliresp 500 mcg tablet RxNorm: 0624096 TAKE ONE TABLET BY MOUTH DAILY 01/31/2019 05/30/2019 Inactive Premarin 0.45 mg tablet RxNorm: 138991 1 Tablet(s) PO QD 01/31/2019 0 04/30/2019 Inactive fluoxetine 40 mg capsule RxNorm: 399424 Capsule(s) TAKE ONE CAPSULE BY MOUTH EVERY MORNING 01/31/2019 04/30/2019 Inactive levothyroxine 50 mcg tablet RxNorm: 938829 1 Tablet(s) PO QD 201804/10/2019 Inactive follow up in 3 weeks levothyroxine 50 mcg tablet RxNorm: 537475 1 Tablet(s) PO QD 201801/25/2019 Inactive follow up in 3 weeks potassium chloride ER 20 mEq tablet,extended release RxNorm: 592265 2 Tablet(s) PO BID 01/23/2019 02/14/2019 Inactive Synthroid 50 mcg tablet RxNorm: 957619 TAKE ONE TABLET BY MOUTH DAILY 01/16/2019 10/24/2019 Inactive potassium chloride ER 20 mEq tablet,extended release RxNorm: 258871 2 Tablet(s) PO BID 01/04/2019 01/22/2019 Inactive ProAir HFA 90 mcg/actuation aerosol inhaler RxNorm: 189176 INHALE ONE PUFF BY MOUTH EVERY 4 HOURS FOR WHEEZING OR SHORTNESS OF BREATH 01/04/201902/20 Inactive Request already responded to by other me ans (e.g. phone or fax) ProAir HFA 90 mcg/actuation aerosol inhaler RxNorm: 2185615 INHALE ONE PUFF BY MOUTH EVERY 4 HOURS FOR WHEEZING OR SHORTNESS OF BREATH 01/02/201912/23 Inactive gabapentin 300 mg capsule RxNorm: 253820 TAKE ONE CAPSULE BY MO UTH TWICE A DAY 12/30/2018 04/06/2019 Inactive furosemide 40 mg tablet RxNorm: 988696 1 Tablet(s) PO QAM 12/26/2018 02/23/2019 Inactive Compazine 10 mg tablet RxNorm: 192037 1 Tablet(s) PO QID as nee ded for nausea 12/07/2018 12/16/2018 Inactive metolazone 2.5 mg tablet RxNorm: 586749 TAKE ONE TABLET BY MOUT H EVERY MORNING 12/05/2018 01/03/2019 Inactive metformin ER 500 mg tablet,extended release 24 hr RxNorm: 86 0975 TAKE ONE TABLET BY MOUTH DAILY 12/05/2018 04/10/2019 Inactive Synthroid 50 mcg tablet RxNorm: 055375 1 Tablet(s) PO QD 11/25/2018 0 01/03/2019 Inactive DC any other synthroid strengths. Should be 50mcg only cyclobenzaprine 10 mg tablet RxNorm: 809247 TAKE ONE TA BLET BY MOUTH THREE TIMES A DAY NEEDED 11/09/2018 02/06/2019 Inactive metolazone 2.5 mg tablet RxNorm: 613387 1 Tablet(s) PO QAM repl aces 5mg dose 11/02/2018 12/01/2018 Inactive potassium chloride ER 20 mEq tablet,extended release RxNorm: 242681 2 Tablet(s) PO QD 2018 01/02/2019 Inactive Compazine 10 mg tablet RxNorm: 652349 1 Tablet(s) PO QID as nee ded for nausea 10/18/2018 12/07/2018 Inactive furosemide 40 mg tablet RxNorm: 115244 1 Tablet(s) PO QAM 10/12/2018 12/10/2018 Inactive ondansetron 8 mg disintegrating tablet RxNorm: 807413 1 Tablet(s) PO Q6H as needed 10/11/2018 10/17/2018 Inactive scopolamine 1 mg over 3 days transdermal patch RxNorm: 29029 2 1 Application TD behind ear. Take off after three days 10/11/2018 01/02/2019 Inactive furosemide 40 mg tablet RxNorm: 820903 1 Tablet(s) PO QAM 10/10/2018 12/26/2018 Inactive metolazone 5 mg tablet RxNorm: 854002 1 Tablet(s) PO QAM 10/06/2018 1 01/03/2018 Inactive metolazone 5 mg tablet RxNorm: 585541 1 Tablet(s) PO QAM 10/06/2018 1 12/05/2017 Inactive Xtampza ER 36 mg capsule sprinkle RxNorm: 4131874 1 Capsule(s) P O BID 10/05/2018 01/02/2019 Inactive Xtampza ER 36 mg capsule sprinkle RxNorm: 0667395 1 Capsule(s) P O BID 10/05/2018 02/12/2019 Inactive omeprazole 40 mg capsule,delayed release RxNorm: 904214 TAKE ONE CAPSULE BY MOUTH DAILY 10/03/2018 12/31/2018 Inactive Duragesic 100 mcg/hr transdermal patch RxNorm: 500011 2 Application TD Q48H for pain 09/30/2018 10/29/2018 Inactive Synthroid 50 mcg tablet RxNorm: 528026 1 Tablet(s) PO QD 09/29/2018 0 11/25/2018 Inactive DC any other synthroid strengths. Should be 50mcg only Synthroid 50 mcg tablet RxNorm: 137045 1 Tablet(s) PO QD 09/29/2018 1 11/28/2017 Inactive furosemide 40 mg tablet RxNorm: 114473 2 Tablet(s) PO Q AM for 1 week then every other day for 2 weeks 09/27/2018 10/12/2018 Inactive fluoxetine 40 mg capsule RxNorm: 022683 2 Capsule(s) PO QD 09/27/20 18 10/17/2018 Inactive potassium chloride ER 20 mEq tablet,extended release RxNorm: 182942 2 Tablet(s) PO QD for 1 week then every other day for 2 weeks 09/27/2018 2018 Inactive ProAir HFA 90 mcg/actuation aerosol inhaler RxNorm: 8131035 INHALE ONE PUFF BY MOUTH EVERY 4 HOURS FOR WHEEZING OR SHORTNESS OF BREATH 09/26/201811/23 Inactive Synthroid 75 mcg tablet RxNorm: 910869 1 Tablet(s) PO QD 09/09/2018 1 Inactive Synthroid 75 mcg tablet RxNorm: 924324 1 Tablet(s) PO QD 09/09/2018 1 11/28/2017 Inactive furosemide 40 mg tablet RxNorm: 159984 1 Tablet(s) PO QD 09/06/2018 1 Inactive potassium chloride ER 20 mEq tablet,extended release RxNorm: 823551 1 Tablet(s) PO QD 09/06/2018 09/19/2018 Inactive Duragesic 100 mcg/hr transdermal patch RxNorm: 159960 2 Application TD Q48H for pain 08/30/2018 09/28/2018 Inactive gabapentin 300 mg capsule RxNorm: 311710 TAKE ONE CAPSULE BY [facility] TWICE A DAY 08/23/2018 12/20/2018 Inactive Daliresp 500 mcg tablet RxNorm: 3082225 TAKE ONE TABLET BY MOUTH DAILY 08/23/2018 01/19/2019 Inactive Pulmicort 1 mg/2 mL suspension for nebulization RxNorm: 6168 19 USE ONE VIAL VIA NEBULIZER BY MOUTH TWICE A DAY 08/23/2018 07/11/2019 Inactive Synthroid 88 mcg tablet RxNorm: 322819 1 Tablet(s) PO QD 08/19/2018 Inactive Medrol (Aníbal) 4 mg tablets in a dose pack RxNorm: 060241 Tablet(s) PO take as directed 08/16/2018 09/05/2018 Inactive Relistor 150 mg tablet RxNorm: 0635069 3 Tablet(s) PO QD 08/16/2018 1 Inactive Zithromax Z-Aníbal 250 mg tablet RxNorm: 854752 Tablet(s) PO take as directed 08/16/2018 09/05/2018 Inactive cyclobenzaprine 10 mg tablet RxNorm: 690941 1 Tablet(s) PO TID as needed 08/16/2018 11/08/2018 Inactive Synthroid 88 mcg tablet RxNorm: 807881 1 Tablet(s) PO Q D NEEDS UPDATED LABS BEFORE FURTHER REFILLS 08/08/2018 08/19/2018 Inactive Premarin 0.45 mg tablet RxNorm: 201728 1 Tablet(s) PO QD 08/03/2018 0 01/31/2019 Inactive fluoxetine 20 mg capsule RxNorm: 703267 TAKE ONE CAPSULE BY BENOIT TH DAILY 08/03/2018 09/26/2018 Inactive Xtampza ER 36 mg capsule sprinkle RxNorm: 5563217 1 Capsule(s) P O BID 08/03/2018 09/01/2018 Inactive metformin ER 500 mg tablet,extended release 24 hr RxNorm: 86 0975 1 Tablet(s) PO QD 08/03/2018 10/31/2018 Inactive Symbicort 160 mcg-4.5 mcg/actuation HFA aerosol inhaler RxNo rm: 2103827 2 Puff(s) INH BID 08/03/2018 01/29/2019 Inactive Duragesic 100 mcg/hr transdermal patch RxNorm: 549323 2 Application TD Q48H for pain 07/29/2018 08/27/2018 Inactive ProAir HFA 90 mcg/actuation aerosol inhaler RxNorm: 097399 INHALE TWO PUFFS BY MOUTH EVERY 4 HOURS FOR WHEEZING OR SHORTNESS OF BREATH 07/27/201802/2018 Inactive Relistor 150 mg tablet RxNorm: 9498565 3 Tablet(s) PO QD 07/20/2018 0 08/15/2018 Inactive metformin ER 500 mg tablet,extended release 24 hr RxNorm: 86 0975 TAKE ONE TABLET BY MOUTH DAILY 07/08/2018 08/02/2018 Inactive fluoxetine 40 mg capsule RxNorm: 306563 TAKE ONE CAPSULE BY BENOIT TH EVERY MORNING 07/08/2018 10/05/2018 Inactive Xtampza ER 18 mg capsule sprinkle RxNorm: 0824677 1 Capsule(s) P O BID 07/08/2018 08/02/2018 Inactive Relistor 150 mg tablet RxNorm: 5446652 3 Tablet(s) PO QD 07/08/2018 0 07/12/2018 Inactive Synthroid 88 mcg tablet RxNorm: 504904 1 Tablet(s) PO Q D NEEDS UPDATED LABS BEFORE FURTHER REFILLS 06/23/2018 07/07/2018 Inactive fluoxetine 40 mg capsule RxNorm: 084663 TAKE ONE CAPSULE BY BENOIT TH EVERY MORNING 06/15/2018 09/26/2018 Inactive orphenadrine citrate ER 100 mg tablet,extended release RxNor m: 349086 TAKE ONE TABLET BY MOUTH TWICE A DAY FOR MUSCLE SPASM 06/15/2018 08/15/2018 [place] ctive Duragesic 100 mcg/hr transdermal patch RxNorm: 536772 2 Application TD Q48H for pain 05/30/2018 06/28/2018 Inactive ProAir HFA 90 mcg/actuation aerosol inhaler RxNorm: 579065 INHALE TWO PUFFS BY MOUTH EVERY 4 HOURS FOR WHEEZING OR SHORTNESS OF BREATH 05/19/201803/2018 Inactive Chantix Continuing Month Box 1 mg tablet RxNorm: 179923 TAKE ONE TABLET BY MOUTH TWICE A DAY 05/19/2018 08/15/2018 Inactive oxycodone 10 mg tablet RxNorm: 5118437 1-2 Tablet(s) PO QID as n eeded for pain 05/19/2018 07/07/2018 Inactive gabapentin 300 mg capsule RxNorm: 949504 TAKE ONE CAPSULE BY MO [facility] TWICE A DAY 05/18/2018 07/16/2018 Inactive ProAir HFA 90 mcg/actuation aerosol inhaler RxNorm: 649627 INHALE TWO PUFFS BY MOUTH EVERY 4 HOURS FOR WHEEZING OR SHORTNESS OF BREATH 05/04/201804/23 Inactive Augmentin 500 mg-125 mg tablet RxNorm: 697749 1 Tablet(s) PO BID 05/03/2018 Inactive oxycodone 10 mg tablet RxNorm: 6525200 1-2 Tablet(s) PO QID as n eeded for pain 04/21/2018 05/18/2018 Inactive Synthroid 88 mcg tablet RxNorm: 109593 1 Tablet(s) PO QD 04/15/2018 0 08/08/2018 Inactive Symbicort 160 mcg-4.5 mcg/actuation HFA aerosol inhaler RxNo rm: 4055242 2 Puff(s) INH BID 04/15/2018 04/10/2019 Inactive Premarin 0.45 mg tablet RxNorm: 393726 1 Tablet(s) PO QD 04/15/2018 0 08/03/2018 Inactive ProAir HFA 90 mcg/actuation aerosol inhaler RxNorm: 047407 2 Puff(s) INH Q4H prn for wheezing or shortness of breath 04/15/2018 05/03/2018 Inactive metformin ER 500 mg tablet,extended release 24 hr RxNorm: 86 0975 1 Tablet(s) PO QD 04/11/2018 07/07/2018 Inactive omeprazole 40 mg capsule,delayed release RxNorm: 054979 TAKE ONE CAPSULE BY MOUTH DAILY 04/10/2018 06/08/2018 Inactive Synthroid 88 mcg tablet RxNorm: 545440 1 Tablet(s) PO QD 04/04/2018 0 04/14/2018 Inactive Synthroid 88 mcg tablet RxNorm: 734373 1 Tablet(s) PO QD 04/04/2018 0 04/03/2018 Inactive orphenadrine citrate ER 100 mg tablet,extended release RxNor m: 871641 1 Tablet(s) PO BID for muscle spasm 04/04/2018 05/03/2018 Inactive metformin ER 500 mg tablet,extended release 24 hr RxNorm: 86 0975 1 Tablet(s) PO QD NEEDS UPDATED LABS 03/31/2018 04/11/2018 Inactive doxycycline hyclate 100 mg capsule RxNorm: 5779194 1 Capsule(s) PO BID 03/31/2018 04/09/2018 Inactive prednisone 20 mg tablet RxNorm: 735283 3 Tablet(s) PO T ID for 3 days then 1 po BID for 3 days then one daily for 3 days 03/31/2018 07/06/2018 Inactiv e Chantix Continuing Month Box 1 mg tablet RxNorm: 979522 TAKE ONE TABLET BY MOUTH TWICE A DAY 03/25/2018 03/30/2018 Inactive oxycodone 10 mg tablet RxNorm: 2108765 1-2 Tablet(s) PO QID as n eeded for pain 03/21/2018 04/20/2018 Inactive Daliresp 500 mcg tablet RxNorm: 1983909 1 Tablet(s) PO QD 03/15/2018 08/22/2018 Inactive metformin ER 500 mg tablet,extended release 24 hr RxNorm: 86 0975 1 Tablet(s) PO QD NEEDS UPDATED LABS 03/14/2018 03/31/2018 Inactive nystatin 100,000 unit/mL oral suspension RxNorm: 626600 5 [place]io liter(s) PO QID 03/02/2018 03/15/2018 Inactive nystatin 100,000 unit/mL oral suspension RxNorm: 068319 5 Chio liter(s) PO QID 03/02/2018 03/01/2018 Inactive oxycodone 10 mg tablet RxNorm: 3876898 1-2 Tablet(s) PO QID as n eeded for pain 02/16/2018 03/20/2018 Inactive fluoxetine 20 mg capsule RxNorm: 129644 1 Capsule(s) PO QD 02/15/20 18 08/02/2018 Inactive metformin ER 500 mg tablet,extended release 24 hr RxNorm: 86 0975 1 Tablet(s) PO QD Needs updated labs 02/14/2018 03/14/2018 Inactive cefdinir 300 mg capsule RxNorm: 399236 1 Capsule(s) PO BID 01/27/20 18 02/04/2018 Inactive orphenadrine citrate ER 100 mg tablet,extended release RxNor m: 192286 1 Tablet(s) PO BID for muscle spasm 01/26/2018 04/04/2018 Inactive gabapentin 300 mg capsule RxNorm: 808114 1 Capsule(s) PO BID 201704/17/2018 Inactive oxycodone 10 mg tablet RxNorm: 8544272 1-2 Tablet(s) PO QID as n eeded for pain 01/17/2018 02/15/2018 Inactive Duragesic 100 mcg/hr transdermal patch RxNorm: 858486 2 Application TD Q48H for pain 01/17/2018 02/15/2018 Inactive gabapentin 300 mg capsule RxNorm: 734389 TAKE ONE CAPSULE BY MO TXH TWICE A DAY 12/20/2017 01/18/2018 Inactive fluoxetine 40 mg capsule RxNorm: 916115 TAKE ONE CAPSULE BY BENOIT TH EVERY MORNING 12/15/2017 03/14/2018 Inactive OneTouch Ultra Test strips RxNorm: TEST DAILY 11/04/2017 02/01/2018 Inactive gabapentin 300 mg capsule RxNorm: 778153 1 Capsule(s) P O TID replaces BID dosing 10/26/2017 02/22/2018 Inactive oxycodone 10 mg tablet RxNorm: 3536491 1-2 Tablet(s) PO QID as n eeded for pain 10/18/2017 01/16/2018 Inactive Duragesic 100 mcg/hr transdermal patch RxNorm: 635966 2 Application TD Q48H for pain 10/18/2017 11/16/2017 Inactive gabapentin 300 mg capsule RxNorm: 595429 1 Capsule(s) PO BID 201610/25/2017 Inactive Abilify 5 mg tablet RxNorm: 452070 1 Tablet(s) PO QAM 09/23/201702/2017 Inactive gabapentin 300 mg capsule RxNorm: 576643 1 Capsule(s) PO BID 201610/17/2017 Inactive oxycodone 10 mg tablet RxNorm: 3486533 1-2 Tablet(s) PO QID as n eeded for pain 09/15/2017 10/17/2017 Inactive Duragesic 100 mcg/hr transdermal patch RxNorm: 203650 2 Application TD Q48H for pain 09/15/2017 10/14/2017 Inactive Duragesic 100 mcg/hr transdermal patch RxNorm: 282262 2 Application TD Q48H for pain 09/15/2017 10/24/2019 Inactive oxycodone 10 mg tablet RxNorm: 3691327 1-2 Tablet(s) PO QID as n eeded for pain 09/15/2017 08/15/2018 Inactive Daliresp 500 mcg tablet RxNorm: 0952665 1 Tablet(s) PO QD 09/06/2017 03/15/2018 Inactive Ventolin HFA 90 mcg/actuation aerosol inhaler RxNorm: 758531 2 Puff(s) INH Q4H as needed 09/02/2017 05/19/2018 Inactive oxycodone 10 mg tablet RxNorm: 9735238 1-2 Tablet(s) PO QID as n eeded for pain 08/17/2017 09/14/2017 Inactive Duragesic 100 mcg/hr transdermal patch RxNorm: 425775 2 Application TD Q48H for pain 08/17/2017 09/14/2017 Inactive fluoxetine 40 mg capsule RxNorm: 247278 Capsule(s) TAKE ONE CAPSULE BY MOUTH EVERY MORNING 08/17/2017 12/14/2017 Inactive Pulmicort 1 mg/2 mL suspension for nebulization RxNorm: 6168 19 1 Unit Dose INH BID Dx: COPD (J44.9) 08/16/2017 08/22/2018 Inactive gabapentin 300 mg capsule RxNorm: 870955 1 Capsule(s) PO QHS 201610/18/2017 Inactive fluoxetine 20 mg capsule RxNorm: 720034 1 Capsule(s) PO QD 08/12/20 17 02/14/2018 Inactive Abilify 2 mg tablet RxNorm: 667918 1 Tablet(s) PO QD TA KE ONE TABLET BY MOUTH DAILY 08/12/2017 10/25/2017 Inactive metformin ER 500 mg tablet,extended release 24 hr RxNorm: 86 0975 1 Tablet(s) PO QD 08/10/2017 02/14/2018 Inactive Synthroid 112 mcg tablet RxNorm: 964973 1 Tablet(s) PO QD 08/10/2017 04/15/2018 Inactive oxycodone 10 mg tablet RxNorm: 0447181 1-2 Tablet(s) PO QID as n eeded for pain 07/19/2017 08/16/2017 Inactive Duragesic 100 mcg/hr transdermal patch RxNorm: 736821 2 Application TD Q48H for pain 07/19/2017 08/16/2017 Inactive Ventolin HFA 90 mcg/actuation aerosol inhaler RxNorm: 873902 2 Puff(s) INH Q4H as needed 07/12/2017 09/02/2017 Inactive Abilify 2 mg tablet RxNorm: 372050 1 Tablet(s) PO QD TA KE ONE TABLET BY MOUTH DAILY 07/06/2017 08/11/2017 Inactive gabapentin 800 mg tablet RxNorm: 224997 1 Tablet(s) PO TID 06/22/20 17 07/05/2017 Inactive Chantix Starting Month Box 0.5 mg (11)-1 mg (42) table ts in dose pack RxNorm: 647346 TAKE BY MOUTH INSTRUCTED - PER PACKAGE INSTRUCTIONS 06/0707/04/2017 Inactive Ventolin HFA 90 mcg/actuation aerosol inhaler RxNorm: 332608 2 Puff(s) INH Q4H as needed 05/26/2017 07/12/2017 Inactive Duragesic 100 mcg/hr transdermal patch RxNorm: 015295 2 Application TD Q48H for pain 05/19/2017 06/17/2017 Inactive oxycodone 10 mg tablet RxNorm: 3391478 1-2 Tablet(s) PO QID as n eeded for pain 05/19/2017 07/18/2017 Inactive Abilify 2 mg tablet RxNorm: 055232 TAKE ONE TABLET BY MOUTH DAILY 0 05/10/2017 07/05/2017 Inactive Synthroid 112 mcg tablet RxNorm: 849996 1 Tablet(s) PO QD 05/06/2017 08/10/2017 Inactive metformin ER 500 mg tablet,extended release 24 hr RxNorm: 86 0975 1 Tablet(s) PO QD 05/06/2017 08/10/2017 Inactive Topamax 100 mg tablet RxNorm: 256399 1 Tablet(s) PO QHS 05/06/2017 Inactive Premarin 0.45 mg tablet RxNorm: 202140 1 Tablet(s) PO QD 05/06/2017 0 04/15/2018 Inactive orphenadrine citrate ER 100 mg tablet,extended release RxNor m: 399014 1 Tablet(s) PO TID for muscle spasm--replaces methocarbamol 04/29/2017 Inactive oxycodone 10 mg tablet RxNorm: 9871649 1-2 Tablet(s) PO QID as n eeded for pain 04/21/2017 05/18/2017 Inactive Duragesic 100 mcg/hr transdermal patch RxNorm: 249165 2 Application TD Q48H for pain 04/21/2017 05/18/2017 Inactive fluoxetine 40 mg capsule RxNorm: 376038 Capsule(s) TAKE ONE CAPSULE BY MOUTH EVERY MORNING 04/20/2017 08/17/2017 Inactive Ventolin HFA 90 mcg/actuation aerosol inhaler RxNorm: 792936 2 Puff(s) INH Q4H as needed 04/05/2017 05/26/2017 Inactive Symbicort 160 mcg-4.5 mcg/actuation HFA aerosol inhaler RxNo rm: 8891530 2 Puff(s) INH BID 03/30/2017 04/15/2018 Inactive Spiriva with HandiHaler 18 mcg and inhalation capsules RxNor m: 873364 1 Capsule(s) INH QD USING HANDIHALER 03/30/2017 02/12/2019 Inactive Duragesic 100 mcg/hr transdermal patch RxNorm: 831926 2 Application TD Q48H for pain 03/18/2017 04/16/2017 Inactive oxycodone 10 mg tablet RxNorm: 1980407 1-2 Tablet(s) PO QID as n eeded for pain 03/18/2017 04/20/2017 Inactive metformin ER 500 mg tablet,extended release 24 hr RxNorm: 86 0975 Tablet(s) TAKE ONE TABLET BY MOUTH DAILY 03/01/2017 05/06/2017 Inactive Premarin 0.45 mg tablet RxNorm: 798749 Tablet(s) TAKE ONE TABLE T BY MOUTH DAILY 03/01/2017 05/06/2017 Inactive Synthroid 112 mcg tablet RxNorm: 141225 Tablet(s) TAKE ONE TABLET BY MOUTH DAILY 03/01/2017 05/06/2017 Inactive Daliresp 500 mcg tablet RxNorm: 0091806 1 Tablet(s) PO QD 03/01/2017 09/06/2017 Inactive 16.2 mg-0.1037 mg-0.0194 mg tablet RxNorm: 9254101 Tablet(s) PO PRN for gas and cramping 02/23/2017 04/28/2017 Inactive TAKE TWO TABLET S BY MOUTH THREE TIMES A DAY NEEDED FOR GAS AND CRAMPING gabapentin 800 mg tablet RxNorm: 254590 1 Tablet(s) PO TID repl aces 600mg 02/23/2017 04/28/2017 Inactive Duragesic 100 mcg/hr transdermal patch RxNorm: 431192 2 Application TD Q48H for pain 02/17/2017 03/17/2017 Inactive fluoxetine 20 mg capsule RxNorm: 618973 1 Capsule(s) PO QD 02/18/20 17 08/12/2017 Inactive oxycodone 20 mg tablet RxNorm: 8721354 1 Tablet(s) PO QID as nee ded for pain 02/17/2017 03/17/2017 Inactive Ventolin HFA 90 mcg/actuation aerosol inhaler RxNorm: 459416 INHALE TWO PUFFS BY MOUTH EVERY 4 HOURS NEEDED 02/15/2017 04/05/2017 Inactive Silvadene 1 % topical cream RxNorm: 348795 1 Application TOP BI D to burn area 02/01/2017 09/22/2017 Inactive Topamax 100 mg tablet RxNorm: 212653 TAKE ONE TABLET BY MOUTH EVERY NIGHT AT BEDTIME 01/29/2017 05/06/2017 Inactive Chantix Starting Month Box 0.5 mg (11)-1 mg (42) table ts in dose pack RxNorm: 660973 Tablet(s) PO as directed 01/29/2017 06/01/2017 Inactive Abilify 2 mg tablet RxNorm: 285614 TAKE ONE TABLET BY MOUTH DAILY 0 01/26/2017 04/25/2017 Inactive Chantix Starting Month Box 0.5 mg (11)-1 mg (42) table ts in dose pack RxNorm: 192171 Tablet(s) PO as directed 01/20/2017 01/28/2017 Inactive gabapentin 600 mg tablet RxNorm: 250796 1 Tablet(s) PO TID 01/21/20 17 02/22/2017 Inactive Chantix Continuing Month Box 1 mg tablet RxNorm: 025737 1 Table t(s) PO BID 12/31/2016 06/01/2017 Inactive Spiriva with HandiHaler 18 mcg and inhalation capsules RxNor m: 730076 INHALE THE ENTIRE CONTENTS OF 1 CAPSULE ONCE A DAY USING HANDIHALER 12/31/201607/2017 Inactive Synthroid 112 mcg tablet RxNorm: 469623 TAKE ONE TABLET BY MOUT H DAILY 12/30/2016 03/01/2017 Inactive metformin ER 500 mg tablet,extended release 24 hr RxNorm: 86 0975 TAKE ONE TABLET BY MOUTH DAILY 12/30/2016 03/01/2017 Inactive Premarin 0.45 mg tablet RxNorm: 117049 TAKE ONE TABLET BY MOUTH DAILY 12/30/2016 03/01/2017 Inactive omeprazole 40 mg capsule,delayed release RxNorm: 607493 TAKE ONE CAPSULE BY MOUTH DAILY 12/30/2016 01/25/2018 Inactive Ventolin HFA 90 mcg/actuation aerosol inhaler RxNorm: 444902 INHALE TWO PUFFS BY MOUTH EVERY 4 HOURS NEEDED 12/28/2016 02/13/2017 Inactive fluoxetine 40 mg capsule RxNorm: 957362 TAKE ONE CAPSULE BY BENOIT TH EVERY MORNING 12/15/2016 04/20/2017 Inactive Chantix Continuing Month Box 1 mg tablet RxNorm: 740639 TAKE ONE TABLET BY MOUTH TWICE A DAY 12/04/2016 12/31/2016 Inactive doxycycline hyclate 100 mg capsule RxNorm: 8545866 1 Capsule(s) PO BID 12/01/2016 12/07/2016 Inactive Levaquin 750 mg tablet RxNorm: 776488 1 Tablet(s) PO QD 12/01/2016 Inactive Abilify 2 mg tablet RxNorm: 013829 TAKE ONE TABLET BY MOUTH DAILY 0 11/25/2016 11/30/2016 Inactive Ventolin HFA 90 mcg/actuation aerosol inhaler RxNorm: 239775 INHALE TWO PUFFS BY MOUTH EVERY 4 HOURS NEEDED 11/02/2016 12/19/2016 Inactive Chantix Continuing Month Box 1 mg tablet RxNorm: 724802 Tablet(s) PO as directed 10/30/2016 12/03/2016 Inactive Symbicort 160 mcg-4.5 mcg/actuation HFA aerosol inhaler RxNo rm: 7559829 INHALE TWO PUFFS TWO TIMES A DAY 10/30/2016 03/30/2017 Inactive Abilify 2 mg tablet RxNorm: 526092 1 Tablet(s) PO QD 10/27/201611/24 Inactive amoxicillin 500 mg capsule RxNorm: 373546 1 Capsule(s) PO TID 10/1410/23/2016 Inactive amoxicillin 500 mg capsule RxNorm: 389603 1 Capsule(s) PO TID 10/1410/13/2016 Inactive Synthroid 112 mcg tablet RxNorm: 624008 TAKE ONE TABLET BY MOUT H DAILY 09/28/2016 12/29/2016 Inactive Topamax 100 mg tablet RxNorm: 166201 TAKE ONE TABLET BY MOUTH EVERY NIGHT AT BEDTIME 09/28/2016 01/28/2017 Inactive Premarin 0.45 mg tablet RxNorm: 968043 TAKE ONE TABLET BY MOUTH DAILY 09/28/2016 12/29/2016 Inactive metformin ER 500 mg tablet,extended release 24 hr RxNorm: 86 0975 TAKE ONE TABLET BY MOUTH DAILY 09/28/2016 12/29/2016 Inactive Ventolin HFA 90 mcg/actuation aerosol inhaler RxNorm: 329277 INHALE TWO PUFFS BY MOUTH EVERY 4 HOURS NEEDED 09/22/2016 10/23/2016 Inactive Pulmicort 1 mg/2 mL suspension for nebulization RxNorm: 6168 19 1 Unit Dose INH BID Dx: COPD (J44.9) 09/10/2016 08/16/2017 Inactive Pulmicort 1 mg/2 mL suspension for nebulization RxNorm: 6168 19 1 Unit Dose INH BID 09/10/2016 09/09/2016 Inactive Brovana 15 mcg/2 mL solution for nebulization RxNorm: 034118 1 Unit Dose INH BID Dx: COPD (J44.9) 09/10/2016 01/25/2018 Inactive Brovana 15 mcg/2 mL solution for nebulization RxNorm: 508954 1 Unit Dose INH BID 09/10/2016 09/09/2016 Inactive ipratropium-albuterol 0.5 mg-3 mg(2.5 mg base)/3 mL ne bulization soln RxNorm: 5319266 1 Unit Dose INH Q4H as needed Dx: COPD (J44.9) 09/10/2016 0 02/12/2019 Inactive orphenadrine citrate ER 100 mg tablet,extended release RxNor m: 081847 1 Tablet(s) PO BID for muscle spasm--replaces methocarbamol 09/09/2016 Inactive Chantix Continuing Month Box 1 mg tablet RxNorm: 884147 Tablet(s) PO as directed 09/09/2016 10/30/2016 Inactive orphenadrine citrate ER 100 mg tablet,extended release RxNor m: 810379 1 Tablet(s) PO BID for muscle spasm 09/09/2016 09/08/2016 Inactive Spiriva with HandiHaler 18 mcg and inhalation capsules RxNor m: 798016 INHALE THE ENTIRE CONTENTS OF 1 CAPSULE ONCE A DAY USING HANDIHALER 09/01/201605/2017 Inactive Daliresp 500 mcg tablet RxNorm: 5605360 1 Tablet(s) PO QD 08/27/2016 03/01/2017 Inactive prednisone 20 mg tablet RxNorm: 376787 3 Tablet(s) PO T ID for 3 days then 1 po BID for 3 days then one daily for 3 days 08/26/2016 04/28/2017 Inactiv e Wellbutrin XL 300 mg 24 hr tablet, extended release RxNorm: 481305 TAKE ONE TABLET BY MOUTH EVERY MORNING 07/29/2016 10/26/2016 Inactive gabapentin 600 mg tablet RxNorm: 586506 1 Tablet(s) PO BID 06/26/20 16 12/22/2016 Inactive fluoxetine 40 mg capsule RxNorm: 029122 TAKE ONE CAPSULE BY BENOIT TH EVERY MORNING 06/24/2016 11/20/2016 Inactive Duragesic 100 mcg/hr transdermal patch RxNorm: 907779 2 Application TD Q48H for pain 06/05/2016 07/04/2016 Inactive oxycodone 10 mg tablet RxNorm: 4593218 1-2 Tablet(s) PO QID as n eeded for pain 06/05/2016 03/17/2017 Inactive Belladonna-Phenobarbital 48 mg tablet,extended release RxNor m: 2 Tablet(s) PO TID 06/05/2016 01/19/2017 Inactive Premarin 0.45 mg tablet RxNorm: 647470 TAKE ONE TABLET BY MOUTH DAILY 05/27/2016 09/23/2016 Inactive Topamax 100 mg tablet RxNorm: 080956 TAKE ONE TABLET BY MOUTH EVERY NIGHT AT BEDTIME 05/27/2016 09/27/2016 Inactive Synthroid 112 mcg tablet RxNorm: 367179 TAKE ONE TABLET BY MOUT H DAILY 05/27/2016 09/23/2016 Inactive metformin ER 500 mg tablet,extended release 24 hr RxNorm: 86 0975 TAKE ONE TABLET BY MOUTH DAILY 05/27/2016 09/23/2016 Inactive Symbicort 160 mcg-4.5 mcg/actuation HFA aerosol inhaler RxNo rm: 2319216 INHALE TWO PUFFS TWO TIMES A DAY 05/27/2016 10/23/2016 Inactive Ventolin HFA 90 mcg/actuation aerosol inhaler RxNorm: 450973 INHALE TWO PUFFS BY MOUTH EVERY 4 HOURS NEEDED 05/21/2016 07/07/2016 Inactive omeprazole 40 mg capsule,delayed release RxNorm: 602689 1 Capsu le(s) PO QD 05/06/2016 08/03/2016 Inactive metformin ER 500 mg tablet,extended release 24 hr RxNorm: 86 0975 TAKE ONE TABLET BY MOUTH DAILY 04/23/2016 05/22/2016 Inactive methocarbamol 750 mg tablet RxNorm: 499805 2 Tablet(s) PO TID as needed for muscle spasm 04/23/2016 09/08/2016 Inactive Synthroid 112 mcg tablet RxNorm: 638575 TAKE ONE TABLET BY MOUT H DAILY 04/23/2016 05/22/2016 Inactive Spiriva with HandiHaler 18 mcg and inhalation capsules RxNor m: 962925 INHALE THE ENTIRE CONTENTS OF 1 CAPSULE ONCE A DAY USING HANDIHALER 04/09/201608/2016 Inactive Diflucan 100 mg tablet RxNorm: 062520 1 Tablet(s) PO QD 04/08/2016 Inactive doxycycline hyclate 100 mg capsule RxNorm: 7223073 1 Capsule(s) PO BID 04/08/2016 04/17/2016 Inactive doxycycline hyclate 100 mg capsule RxNorm: 0089444 1 Capsule(s) PO BID 04/08/2016 04/07/2016 Inactive Diflucan 100 mg tablet RxNorm: 526112 1 Tablet(s) PO QD 04/08/2016 Inactive ondansetron HCl 4 mg tablet RxNorm: 667371 1 Tablet(s) PO Q4H as needed for nausea and vomiting 04/08/2016 09/22/2017 Inactive gabapentin 600 mg tablet RxNorm: 747970 TAKE ONE TABLET BY MOUT H TWICE A DAY 03/24/2016 06/25/2016 Inactive Synthroid 112 mcg tablet RxNorm: 340718 TAKE ONE TABLET BY MOUT H DAILY 02/25/2016 04/22/2016 Inactive Levaquin 500 mg tablet RxNorm: 481755 1 Tablet(s) PO QD 01/23/2016 Inactive prednisone 20 mg tablet RxNorm: 562284 1 Tablet(s) PO T ID for 3 days then 1 po BID for 3 days then one daily for 3 days 01/23/2016 08/25/2016 Inactiv e [email or web address] Ultra Test strips RxNorm: TEST BLOOD SUGAR ONCE DAILY 250.00 01/09/2016 11/04/2017 Inactive methocarbamol 750 mg tablet RxNorm: 691005 2 Tablet(s) PO TID as needed for muscle spasm 01/09/2016 04/23/2016 Inactive lactulose 10 gram/15 mL oral solution RxNorm: 634324 [address](s) PO QD 01/09/2016 09/22/2017 Inactive TAKE 1 TABLESPOON BY MOUTH ONCE DAILY metformin ER 500 mg tablet,extended release 24 hr RxNorm: 86 0975 1 Tablet(s) PO QD 12/26/2015 04/22/2016 Inactive fluoxetine 20 mg capsule RxNorm: 904424 1 Capsule(s) PO QD 12/23/19 16 06/19/2016 Inactive Premarin 0.45 mg tablet RxNorm: 379553 TAKE ONE TABLET BY MOUTH DAILY 12/23/2015 05/20/2016 Inactive fluoxetine 40 mg capsule RxNorm: 519248 1 Capsule(s) PO QD 12/23/19 16 06/19/2016 Inactive TAKE ONE CAPSULE BY MOUTH EV JANKI MORNING azithromycin 500 mg tablet RxNorm: 233171 1 Tablet(s) PO QD 016 12/19/2015 Inactive Zofran 4 mg tablet RxNorm: 528506 1 Tablet(s) PO Q4H prn nausea /vomiting 12/13/2015 03/30/2018 Inactive azithromycin 500 mg tablet RxNorm: 866676 1 Tablet(s) PO QD 016 12/12/2015 Inactive Duragesic 100 mcg/hr transdermal patch RxNorm: 518786 2 Application TD Q48H for pain 12/09/2015 01/07/2016 Inactive oxycodone 10 mg tablet RxNorm: 7961157 1-2 Tablet(s) PO QID as n eeded for pain 12/09/2015 06/04/2016 Inactive Bactroban 2 % topical cream RxNorm: 111319 Application TOP BID 11/2208/25/2016 Inactive doxycycline hyclate 100 mg capsule RxNorm: 2342613 1 Capsule(s) PO BID 12/03/2015 12/12/2015 Inactive Topamax 100 mg tablet RxNorm: 434401 TAKE ONE TABLET BY MOUTH EVERY NIGHT AT BEDTIME 11/25/2015 05/22/2016 Inactive Symbicort 160 mcg-4.5 mcg/actuation HFA aerosol inhaler RxNo rm: 5065686 INHALE TWO PUFFS TWO TIMES A DAY 11/25/2015 05/22/2016 Inactive Synthroid 112 mcg tablet RxNorm: 565327 Tablet(s) TAKE ONE TABLET BY MOUTH DAILY 11/25/2015 02/22/2016 Inactive omeprazole 40 mg capsule,delayed release RxNorm: 327899 1 Capsu le(s) PO QD 11/12/2015 05/05/2016 Inactive oxycodone 10 mg tablet RxNorm: 0006198 1-2 Tablet(s) PO QID as n eeded for pain 11/05/2015 12/08/2015 Inactive Duragesic 100 mcg/hr transdermal patch RxNorm: 239664 2 Application TD Q48H for pain 11/05/2015 12/04/2015 Inactive omeprazole 40 mg capsule,delayed release RxNorm: 604626 1 Capsu le(s) PO QD 10/07/2015 11/11/2015 Inactive Januvia 100 mg tablet RxNorm: 922873 TAKE ONE TABLET BY MOUTH DAILY 09/11/2015 12/25/2015 Inactive Zithromax 500 mg tablet RxNorm: 499402 1 Tablet(s) PO QD 09/10/2015 1 Inactive prednisone 20 mg tablet RxNorm: 198291 1 Tablet(s) PO T ID for 3 days then 1 po BID for 3 days then one daily for 3 days 09/10/2015 08/25/2016 Inactiv e Wellbutrin XL 300 mg 24 hr tablet, extended release RxNorm: 187789 1 Tablet(s) PO QAM 09/10/2015 12/02/2015 Inactive Topamax 100 mg tablet RxNorm: 325355 TAKE ONE TABLET BY MOUTH EVERY NIGHT AT BEDTIME 09/02/2015 11/24/2015 Inactive Synthroid 112 mcg tablet RxNorm: 131133 TAKE ONE TABLET BY MOUT H DAILY 09/02/2015 11/25/2015 Inactive methocarbamol 750 mg tablet RxNorm: 929940 2 Tablet(s) PO TID as needed for muscle spasm 08/15/2015 01/09/2016 Inactive Wellbutrin XL 150 mg 24 hr tablet, extended release RxNorm: 609493 TAKE ONE TABLET BY MOUTH EVERY MORNING 08/13/2015 08/13/2015 Inactive gabapentin 600 mg tablet RxNorm: 240903 1 Tablet(s) PO BID 08/13/20 15 02/08/2016 Inactive Wellbutrin XL 300 mg 24 hr tablet, extended release RxNorm: 855801 1 Tablet(s) PO QAM 08/06/2015 09/09/2015 Inactive Wellbutrin XL 150 mg 24 hr tablet, extended release RxNorm: 185862 1 Tablet(s) PO QAM 07/18/2015 08/05/2015 Inactive prednisone 20 mg tablet RxNorm: 821351 1 Tablet(s) PO BID 07/18/2015 07/22/2015 Inactive doxycycline hyclate 100 mg tablet,delayed release RxNorm: 43 4018 1 Tablet(s) PO BID 07/18/2015 07/27/2015 Inactive pravastatin 40 mg tablet RxNorm: 006930 1 Tablet(s) PO QD NEEDS FASTING LAB 07/15/2015 07/14/2015 Inactive pravastatin 40 mg tablet RxNorm: 549852 1 Tablet(s) PO QD NEEDS FASTING LAB 07/15/2015 01/25/2018 Inactive Ventolin HFA 90 mcg/actuation aerosol inhaler RxNorm: 472742 2 Puff(s) INH Q4H 07/08/2015 07/07/2015 Inactive prn Premarin 0.45 mg tablet RxNorm: 830452 1 Tablet(s) PO QD 07/01/2015 0 12/22/2015 Inactive pravastatin 40 mg tablet RxNorm: 597567 1 Tablet(s) PO QD NEEDS FASTING LAB 06/14/2015 07/15/2015 Inactive Ventolin HFA 90 mcg/actuation aerosol inhaler RxNorm: 7669984 2 Puff(s) INH Q4H 06/06/2015 07/08/2015 Inactive prn albuterol sulfate 2.5 mg/3 mL (0.083 %) solution for n ebulization RxNorm: 257196 1 Unit Dose INH QID 05/30/2015 No Stop Date Active Duragesic 100 mcg/hr transdermal patch RxNorm: 374319 2 Application TD Q48H for pain 04/29/2015 05/28/2015 Inactive gabapentin 600 mg tablet RxNorm: 512543 1 Tablet(s) PO BID 04/11/20 15 08/13/2015 Inactive Onglyza 5 mg tablet RxNorm: 716291 1 Tablet(s) PO QD for blood suga r 04/10/2015 04/15/2015 Inactive [Brand Copay Card: RxBIN:[id number] PCN:CRISTIANA RxGRP:[id number] ID#:[id number]] methocarbamol 750 mg tablet RxNorm: 062821 2 Tablet(s) PO TID as needed for muscle spasm 03/28/2015 08/15/2015 Inactive pravastatin 40 mg tablet RxNorm: 720849 1 Tablet(s) PO QD 03/19/2015 03/18/2015 Inactive pravastatin 40 mg tablet RxNorm: 635463 1 Tablet(s) PO QD 03/19/2015 06/14/2015 Inactive lactulose 10 gram/15 mL oral solution RxNorm: 056964 [address]s) PO QD 03/07/2015 01/09/2016 Inactive TAKE 1 TABLESPOON BY MOUTH ONCE DAILY oxycodone 20 mg tablet RxNorm: 1477834 1 Tablet(s) PO QID as nee ded for pain 03/05/2015 07/08/2015 Inactive Topamax 100 mg tablet RxNorm: 242374 1 Tablet(s) PO QHS TAKE ONE TABLET BY MOUTH AT BEDTIME 02/25/2015 02/12/2019 Inactive metformin ER 500 mg tablet,extended release 24 hr RxNorm: 86 0975 1 Tablet(s) PO QD 02/11/2015 03/04/2015 Inactive take one tablet by mouth every day Daliresp 500 mcg tablet RxNorm: 0657634 1 Tablet(s) PO QD 02/11/2015 08/09/2015 Inactive Endocet 10 mg-325 mg tablet RxNorm: 6709979 1 Tablet(s) PO Q4H as needed for pain 01/23/2015 01/23/2015 Inactive gabapentin 600 mg tablet RxNorm: 266385 1 Tablet(s) PO BID 01/23/20 15 04/11/2015 Inactive methocarbamol 750 mg tablet RxNorm: 203363 2 Tablet(s) PO TID as needed for muscle spasm 01/15/2015 02/13/2015 Inactive fluoxetine 40 mg capsule RxNorm: 255101 1 Capsule(s) PO QD 01/14/20 15 12/23/2015 Inactive TAKE ONE CAPSULE BY MOUTH EV JANKI MORNING fluoxetine 20 mg capsule RxNorm: 576238 1 Capsule(s) PO QD 01/14/20 15 12/23/2015 Inactive Premarin 0.45 mg tablet RxNorm: 981184 1 Tablet(s) PO QD 01/02/2015 0 07/01/2015 Inactive Endocet 10 mg-325 mg tablet RxNorm: 0097606 1-2 Tablet(s) PO Q4H 02/12/2019 Inactive PRN PAIN Duragesic 100 mcg/hr transdermal patch RxNorm: 662204 2 Application TD Q48H for pain 12/25/2014 01/23/2015 Inactive Topamax 100 mg tablet RxNorm: 705394 1 Tablet(s) PO QHS TAKE ONE TABLET BY MOUTH AT BEDTIME 12/25/2014 02/24/2015 Inactive Tudorza Pressair 400 mcg/actuation breath activated RxNorm: 7991465 1 BID INHALE ONE PUFF INTO LUNGS TWO TIMES A DAY 12/17/2014 05/15/2015 Inactive Endocet 10 mg-325 mg tablet RxNorm: 8545649 1-2 Tablet(s) PO Q4H 12/19/2014 Inactive PRN PAIN Duragesic 100 mcg/hr transdermal patch RxNorm: 157101 2 Application TD Q48H for pain 11/20/2014 12/24/2014 Inactive [employer] Ultra Test strips RxNorm: TEST BLOOD SUGAR ONCE DAILY 250.00 11/16/2014 01/08/2016 Inactive omeprazole 40 mg capsule,delayed release RxNorm: 321937 1 Capsu le(s) PO QD 11/13/2014 11/12/2015 Inactive metformin ER 500 mg tablet,extended release 24 hr RxNorm: 86 0975 1 Tablet(s) PO QD 11/12/2014 02/11/2015 Inactive take one tablet by mouth every day Symbicort 160 mcg-4.5 mcg/actuation HFA aerosol inhaler RxNo rm: 7779465 2 Puff(s) INH BID 11/12/2014 03/11/2015 Inactive INHALE 2 PUFFS O RALLY TWO TIMES A DAY gabapentin 800 mg tablet RxNorm: 546555 1 Tablet(s) PO QD TAKE ONE TABLET BY MOUTH ONCE A DAY 10/22/2014 01/01/2015 Inactive Endocet 10 mg-325 mg tablet RxNorm: 7345496 1-2 Tablet(s) PO Q4H 11/15/2014 Inactive PRN PAIN Duragesic 100 mcg/hr transdermal patch RxNorm: 761702 2 Application TD Q48H for pain 10/17/2014 11/19/2014 Inactive gabapentin 800 mg tablet RxNorm: 813115 1 Tablet(s) PO QD TAKE ONE TABLET BY MOUTH ONCE A DAY 10/04/2014 10/21/2014 Inactive Premarin 0.9 mg tablet RxNorm: 244185 1 Tablet(s) PO QD TAKE ONE TABLET BY MOUTH ONCE A DAY 10/04/2014 01/01/2015 Inactive Spiriva with HandiHaler 18 mcg & inhalation capsules RxNorm: 076928 1 Capsule(s) INH QD 10/03/2014 04/30/2015 Inactive Levaquin 500 mg tablet RxNorm: 841305 1 Tablet(s) PO QD 10/03/2014 Inactive prednisone 20 mg tablet RxNorm: 678153 1 Tablet(s) PO QD 10/03/2014 1 12/09/2013 Inactive Duragesic 100 mcg/hr transdermal patch RxNorm: 774529 2 Application TD Q48H for pain 09/18/2014 10/16/2014 Inactive Endocet 10 mg-325 mg tablet RxNorm: 6899563 1-2 Tablet(s) PO Q4H 10/16/2014 Inactive PRN PAIN Synthroid 112 mcg tablet RxNorm: 614983 1 Tablet(s) QD 09/10/2014 Inactive Synthroid 112 mcg tablet RxNorm: 332174 TAKE ONE TABLET BY MOUTH ONE TIME A DAY. NEEDS LABS 09/10/2014 02/06/2015 Inactive omeprazole 40 mg capsule,delayed release RxNorm: 942153 1 Capsu le(s) PO QD 09/03/2014 11/13/2014 Inactive omeprazole 40 mg capsule,delayed release RxNorm: 657489 1 Capsu le(s) PO QD 09/03/2014 09/02/2014 Inactive Spiriva with HandiHaler 18 mcg & inhalation capsules RxNorm: 284226 1 Capsule(s) INH QD 08/27/2014 10/02/2014 Inactive gabapentin 600 mg tablet RxNorm: 034794 1 Tablet(s) PO BID 08/27/20 14 10/22/2014 Inactive Endocet 10 mg-325 mg tablet RxNorm: 4576840 1-2 Tablet(s) PO Q4H 09/17/2014 Inactive PRN PAIN fentanyl 100 mcg/hr transdermal patch RxNorm: 827943 1 Unit Dos e TD QD 08/21/2014 09/19/2014 Inactive Daliresp 500 mcg tablet RxNorm: 8725499 1 Tablet(s) PO QD 08/13/2014 02/11/2015 Inactive Synthroid 112 mcg tablet RxNorm: 623855 TAKE ONE TABLET BY MOUTH ONE TIME A DAY. NEEDS LABS 08/10/2014 09/10/2014 Inactive Endocet 10 mg-325 mg tablet RxNorm: 3339762 1-2 Tablet(s) PO Q4H 08/17/2014 Inactive PRN PAIN Duragesic 100 mcg/hr transdermal patch RxNorm: 163434 2 Application TD Q48H for pain 07/19/2014 09/17/2014 Inactive fluoxetine 40 mg capsule RxNorm: 809673 1 Capsule(s) PO QD 07/17/20 14 01/14/2015 Inactive TAKE ONE CAPSULE BY MOUTH EV JANKI MORNING fluoxetine 20 mg capsule RxNorm: 766444 1 Capsule(s) PO QD 07/17/20 14 01/14/2015 Inactive Spiriva with HandiHaler 18 mcg & inhalation capsules RxNorm: 558634 1 Capsule(s) INH QD 07/17/2014 08/26/2014 Inactive INHALE CONTENTS OF 1 CAPSULE(S) WITH HANDIHALER ONCE DAILY Zofran 4 mg tablet RxNorm: 673364 1 Tablet(s) PO Q4H prn nausea 07/25/2014 Inactive Synthroid 112 mcg tablet RxNorm: 966624 1 Tablet(s) PO QD 07/09/2014 07/09/2014 Inactive methocarbamol 750 mg tablet RxNorm: 958052 2 Tablet(s) PO TID as needed for muscle spasm 07/09/2014 09/06/2014 Inactive Synthroid 112 mcg tablet RxNorm: 763612 1 Tablet(s) PO QD - nee d labs 07/09/2014 08/07/2014 Inactive Medrol (Aníbal) 4 mg tablets in a dose pack RxNorm: 984297 6 Tablet(s) PO QD --then as directed 07/03/2014 07/08/2014 Inactive Tudorza Pressair 400 mcg/actuation breath activated RxNorm: 0833030 1 Puff(s) INH BID 07/03/2014 12/17/2014 Inactive cefdinir 300 mg capsule RxNorm: 139935 1 Capsule(s) PO BID 07/03/20 14 07/12/2014 Inactive Topamax 100 mg tablet RxNorm: 722738 Tablet(s) TAKE ONE TABLET BY MOUTH AT BEDTIME 07/02/2014 02/25/2015 Inactive Duragesic 100 mcg/hr transdermal patch RxNorm: 929682 2 Application TD Q48H for pain 06/25/2014 07/18/2014 Inactive Endocet 10 mg-325 mg tablet RxNorm: 0644882 1-2 Tablet(s) PO Q4H 07/18/2014 Inactive PRN PAIN metformin ER 500 mg tablet,extended release 24 hr RxNorm: 86 0975 1 Tablet(s) PO QD Needs labs 06/18/2014 07/01/2014 Inactive take one tablet by mouth every day Duragesic 100 mcg/hr transdermal patch RxNorm: 801726 2 Application TD Q48H for pain 05/22/2014 06/24/2014 Inactive Synthroid 112 mcg tablet RxNorm: 736412 1 Tablet(s) PO QD 05/22/2014 07/09/2014 Inactive Endocet 10 mg-325 mg tablet RxNorm: 4379183 1-2 Tablet(s) PO Q4H 06/20/2014 Inactive PRN PAIN Endocet 10 mg-325 mg tablet RxNorm: 3831113 1-2 Tablet(s) PO Q4H 05/21/2014 Inactive PRN PAIN Duragesic 100 mcg/hr transdermal patch RxNorm: 891397 2 Application TD Q48H for pain 04/25/2014 05/21/2014 Inactive Daliresp 500 mcg tablet RxNorm: 3840491 1 Tablet(s) PO QD 04/24/2014 08/13/2014 Inactive Symbicort 160 mcg-4.5 mcg/actuation HFA aerosol inhaler RxNo rm: 3217239 2 Puff(s) INH BID 04/24/2014 08/21/2014 Inactive INHALE 2 PUFFS O RALLY TWO TIMES A DAY metformin ER 500 mg tablet,extended release 24 hr RxNorm: 86 0975 1 Tablet(s) PO QD 04/24/2014 11/12/2014 Inactive TAKE ONE TABLET BY MOUTH EVERY DAY [AttnRPh:Saving Apply/Adjudicate RxGRP:LDMGRP RxBIN:[id number] RxPCN:2012 PCode: ID#:[id number]] Symbicort 160 mcg-4.5 mcg/actuation HFA aerosol inhaler RxNo rm: 5122563 2 Puff(s) INH BID 04/24/2014 11/12/2014 Inactive INHALE 2 PUFFS O RALLY TWO TIMES A DAY Premarin 0.9 mg tablet RxNorm: 903978 1 Tablet(s) PO QD 04/24/2014 Inactive TAKE ONE TABLET BY MOUTH EVERY DAY metformin ER 500 mg tablet,extended release 24 hr RxNorm: 86 0975 1 Tablet(s) PO QD Needs labs 04/24/2014 06/18/2014 Inactive TAKE ONE TABLET BY MOUTH EVERY DAY [AttnRPh:Saving Apply/Adjudicate RxGRP:LDMGRP RxBIN:[id number] RxPCN:2012 PCode:01 ID#:[id number]] gabapentin 800 mg tablet RxNorm: 998333 1 Tablet(s) PO QD 04/24/2014 10/04/2014 Inactive TAKE ONE TABLET BY MOUTH EVERY DAY Topamax 100 mg tablet RxNorm: 973421 1 Tablet(s) PO QHS 04/17/2014 Inactive Topamax 100 mg tablet RxNorm: 078351 TAKE ONE TABLET BY MOUTH A T BEDTIME 04/17/2014 07/01/2014 Inactive Tudorza Pressair 400 mcg/actuation breath activated RxNorm: 6114548 1 Puff(s) INH BID 04/11/2014 07/02/2014 Inactive Duragesic 100 mcg/hr transdermal patch RxNorm: 773983 2 Application TD Q48H for pain 03/27/2014 04/24/2014 Inactive Endocet 10 mg-325 mg tablet RxNorm: 6469930 1-2 Tablet(s) PO Q4H 04/24/2014 Inactive PRN PAIN Robaxin 750 mg tablet RxNorm: 514084 2 Tablet(s) PO TID as need ed for spasm 02/23/2014 03/28/2015 Inactive Duragesic 100 mcg/hr transdermal patch RxNorm: 581152 2 Application TD Q48H for pain 02/23/2014 No Stop Date Active Endocet 10 mg-325 mg tablet RxNorm: 5127577 1-2 Tablet(s) PO Q4H 03/23/2014 Inactive PRN PAIN Synthroid 112 mcg tablet RxNorm: 240064 1 Tablet(s) PO QD TAKE ONE TABLET BY MOUTH EVERY DAY 02/15/2014 05/22/2014 Inactive Zithromax 500 mg tablet RxNorm: 381675 1 Tablet(s) PO QD 01/30/2014 0 02/05/2014 Inactive Diflucan 100 mg tablet RxNorm: 358565 1 Tablet(s) PO QD 01/30/2014 Inactive prednisone 20 mg tablet RxNorm: 443185 1 Tablet(s) PO BID 01/30/2014 02/05/2014 Inactive fluoxetine 40 mg capsule RxNorm: 071418 1 Capsule(s) PO QD 01/23/20 14 07/16/2014 Inactive TAKE ONE CAPSULE BY MOUTH EV JANKI MORNING fluoxetine 40 mg capsule RxNorm: 484479 1 Capsule(s) PO QD 01/23/20 14 07/17/2014 Inactive TAKE ONE CAPSULE BY MOUTH EV JANKI MORNING cefdinir 300 mg capsule RxNorm: 051298 1 Capsule(s) PO BID 01/16/20 14 01/29/2014 Inactive Zithromax 500 mg tablet RxNorm: 851741 1 Tablet(s) PO QD 01/16/2014 0 01/22/2014 Inactive prednisone 20 mg tablet RxNorm: 409587 1 Tablet(s) PO BID 01/16/2014 01/22/2014 Inactive Spiriva with HandiHaler 18 mcg and inhalation capsules RxNor m: 807057 1 Capsule(s) INH QD 12/18/2013 07/17/2014 Inactive INHALE CONTENT S OF 1 CAPSULE(S) WITH HANDIHALER ONCE DAILY fluoxetine 20 mg capsule RxNorm: 455871 1 Capsule(s) PO QD 12/18/19 14 06/15/2014 Inactive Spiriva with HandiHaler 18 mcg & inhalation capsules RxNorm: 022132 1 Capsule(s) INH QD 12/18/2013 06/15/2014 Inactive INHALE CONTENTS OF 1 CAPSULE(S) WITH HANDIHALER ONCE DAILY fluoxetine 20 mg capsule RxNorm: 028146 1 Capsule(s) PO QD 12/18/19 14 07/17/2014 Inactive cefdinir 300 mg capsule RxNorm: 010048 2 Capsule(s) PO QD 12/12/2013 12/21/2013 Inactive Duragesic 100 mcg/hr transdermal patch RxNorm: 769403 2 Application TD Q48H for pain 12/08/2013 12/07/2013 Inactive Topamax 100 mg tablet RxNorm: 540414 1 Tablet(s) PO QHS 12/04/2013 Inactive Endocet 10 mg-325 mg tablet RxNorm: 0151169 1-2 Tablet(s) PO Q4H 12/26/2013 Inactive PRN PAIN Robaxin 750 mg tablet RxNorm: 427651 2 Tablet(s) PO TID as need ed for spasm 11/07/2013 01/05/2014 Inactive gabapentin 800 mg tablet RxNorm: 698428 1 Tablet(s) PO QD 10/16/2013 04/24/2014 Inactive TAKE ONE TABLET BY MOUTH EVERY DAY Symbicort 160 mcg-4.5 mcg/actuation HFA aerosol inhaler RxNo rm: 9993459 2 Puff(s) INH BID 10/16/2013 04/24/2014 Inactive INHALE 2 PUFFS O RALLY TWO TIMES A DAY Premarin 0.9 mg tablet RxNorm: 391278 1 Tablet(s) PO QD 10/16/2013 Inactive TAKE ONE TABLET BY MOUTH EVERY DAY metformin ER 500 mg tablet,extended release 24 hr RxNorm: 86 0975 1 Tablet(s) PO QD 10/16/2013 04/24/2014 Inactive TAKE ONE TABLET BY MOUTH EVERY DAY Daliresp 500 mcg tablet RxNorm: 9346426 1 Tablet(s) PO QD 10/16/2013 04/24/2014 Inactive Robaxin 750 mg tablet RxNorm: 274679 2 Tablet(s) PO TID as need ed for spasm 10/10/2013 11/06/2013 Inactive Duragesic 100 mcg/hr transdermal patch RxNorm: 055883 2 Application TD Q48H for pain 10/09/2013 No Stop Date Active Soma 350 mg tablet RxNorm: 763844 1 Tablet(s) PO TID 09/27/201310/09 Inactive TAKE ONE TABLET BY MOUTH THREE TIMES A D AY lactulose 10 gram/15 mL oral solution RxNorm: 933814 [address](s) PO QD 09/13/2013 03/07/2015 Inactive TAKE 1 TABLESPOON BY MOUTH ONCE DAILY Duragesic 100 mcg/hr transdermal patch RxNorm: 238662 2 Application TD Q48H for pain 09/06/2013 No Stop Date Active Endocet 10 mg-325 mg tablet RxNorm: 7378540 1-2 Tablet(s) PO Q4H 09/27/2013 Inactive PRN PAIN lancets 28 gauge RxNorm: Miscellaneous As needed for blo od glucose sticks 08/24/2013 No Stop Date Active 16.2 mg-0.1037 mg-0.0194 mg tablet RxNorm: 7209595 Tablet(s) PO PRN for gas and cramping 08/24/2013 01/19/2017 Inactive TAKE TWO TABLET S BY MOUTH THREE TIMES A DAY NEEDED FOR GAS AND CRAMPING Topamax 100 mg tablet RxNorm: 808258 1 Tablet(s) PO QHS 07/31/2013 Inactive Diflucan 100 mg tablet RxNorm: 076554 1 Tablet(s) PO QD 07/27/2013 Inactive cefdinir 300 mg capsule RxNorm: 007644 1 Capsule(s) PO BID 07/26/20 13 08/08/2013 Inactive Daliresp 500 mcg tablet RxNorm: 1789700 1 Tablet(s) PO QD 07/25/2013 10/15/2013 Inactive fluoxetine 40 mg capsule RxNorm: 751490 1 Capsule(s) PO QD 07/25/20 13 01/22/2014 Inactive TAKE ONE CAPSULE BY MOUTH EV JANKI MORNING Senokot-S 8.6 mg-50 mg tablet RxNorm: 7268390 1 Tablet(s) PO BID 10/25/2013 Inactive doxycycline hyclate 100 mg capsule RxNorm: 4371297 1 Capsule(s) PO BID 06/28/2013 07/07/2013 Inactive prednisone 20 mg tablet RxNorm: 572561 1 Tablet(s) PO BID 06/28/2013 07/04/2013 Inactive Zofran 4 mg tablet RxNorm: 845630 1 Tablet(s) PO Q4H prn nausea 03/201307/05/2013 Inactive Spiriva with HandiHaler 18 mcg & inhalation capsules RxNorm: 357253 1 Capsule(s) INH QD 06/26/2013 12/18/2013 Inactive INHALE CONTENTS OF 1 CAPSULE(S) WITH HANDIHALER ONCE DAILY Synthroid 112 mcg tablet RxNorm: 872669 1 Tablet(s) PO QD TAKE ONE TABLET BY MOUTH EVERY DAY 06/19/2013 02/15/2014 Inactive fluoxetine 20 mg capsule RxNorm: 249697 1 Capsule(s) PO QD 06/19/20 13 12/18/2013 Inactive Ventolin HFA 90 mcg/actuation Aerosol Inhaler RxNorm: 9546851 2 Puff(s) INH Q4H 06/05/2013 No Stop Date Active prn Soma 350 mg tablet RxNorm: 622116 1 Tablet(s) PO TID 06/05/201307/04 Inactive TAKE ONE TABLET BY MOUTH THREE TIMES A D AY prednisone 20 mg tablet RxNorm: 899849 1 Tablet(s) PO QD 05/31/2013 0 06/06/2013 Inactive Topamax 100 mg tablet RxNorm: 109068 1 Tablet(s) PO QHS 05/22/2013 Inactive Levaquin 500 mg tablet RxNorm: 824150 1 Tablet(s) PO QD 05/03/2013 Inactive Diflucan 100 mg tablet RxNorm: 355751 1 Tablet(s) PO QD 05/03/2013 Inactive Daliresp 500 mcg tablet RxNorm: 8563030 1 Tablet(s) PO QD 05/01/2013 07/24/2013 Inactive Daliresp 500 mcg tablet RxNorm: 3868928 1 Tablet(s) PO QD 05/01/2013 04/30/2013 Inactive gabapentin 800 mg tablet RxNorm: 917066 1 Tablet(s) PO QD 04/10/2013 10/06/2013 Inactive TAKE ONE TABLET BY MOUTH EVERY DAY metformin ER 500 mg tablet,extended release 24 hr RxNorm: 86 0977 1 Tablet(s) PO QD 04/10/2013 10/06/2013 Inactive TAKE ONE TABLET BY MOUTH EVERY DAY Premarin 0.9 mg tablet RxNorm: 333068 1 Tablet(s) PO QD 04/10/2013 Inactive TAKE ONE TABLET BY MOUTH EVERY DAY Symbicort 160 mcg-4.5 mcg/actuation HFA aerosol inhaler RxNo rm: 6517518 2 Puff(s) INH BID 04/10/2013 10/06/2013 Inactive INHALE 2 PUFFS O RALLY TWO TIMES A DAY Synthroid 112 mcg tablet RxNorm: 329337 1 Tablet(s) PO QD TAKE ONE TABLET BY MOUTH EVERY DAY 04/10/2013 06/18/2013 Inactive Ventolin HFA 90 mcg/actuation Aerosol Inhaler RxNorm: 8521515 2 Puff(s) INH Q4H 04/10/2013 No Stop Date Active prn fentanyl 100 mcg/hr transdermal patch RxNorm: 294297 1 Unit Dos e TD QD 04/03/2013 05/02/2013 Inactive Endocet 10 mg-325 mg tablet RxNorm: 8693510 1-2 Tablet(s) PO Q4H 05/02/2013 Inactive PRN PAIN Topamax 100 mg tablet RxNorm: 117538 1 Tablet(s) PO QHS 03/13/2013 Inactive Reglan 10 mg tablet RxNorm: 961534 1 Tablet(s) PO QID b efore meals and at bedtime 03/13/2013 04/09/2015 Inactive fluoxetine 20 mg capsule RxNorm: 807578 1 Capsule(s) PO QD 02/28/20 13 05/27/2013 Inactive Ventolin HFA 90 mcg/actuation Aerosol Inhaler RxNorm: 1911490 2 Puff(s) INH Q4H 02/13/2013 No Stop Date Active prn fluoxetine 40 mg capsule RxNorm: 928120 1 Capsule(s) PO QD 01/31/20 13 07/24/2013 Inactive TAKE ONE CAPSULE BY MOUTH EV JANKI MORNING Soma 350 mg tablet RxNorm: 480624 1 Tablet(s) PO TID 01/20/201302/18 Inactive TAKE ONE TABLET BY MOUTH THREE TIMES A D AY Endocet 10 mg-325 mg tablet RxNorm: 3647324 1-2 Tablet(s) PO Q4H 02/06/2013 Inactive PRN PAIN MS Contin 200 mg tablet,extended release RxNorm: 179754 1 Table t(s) PO BID 01/18/2013 02/06/2013 Inactive Ventolin HFA 90 mcg/actuation Aerosol Inhaler RxNorm: 7254643 2 Puff(s) INH Q4H 01/04/2013 No Stop Date Active prn Spiriva with HandiHaler 18 mcg & inhalation capsules RxNorm: 388718 1 Capsule(s) INH QD 12/29/2012 06/25/2013 Inactive INHALE CONTENTS OF 1 CAPSULE(S) WITH HANDIHALER ONCE DAILY Spiriva with HandiHaler 18 mcg & inhalation capsules RxNorm: 426086 1 Capsule(s) INH QD 12/26/2012 12/28/2012 Inactive INHALE CONTENTS OF 1 CAPSULE(S) WITH HANDIHALER ONCE DAILY Synthroid 112 mcg tablet RxNorm: 941473 Tablet(s) PO TA KE ONE TABLET BY MOUTH EVERY DAY 12/26/2012 04/09/2013 Inactive Endocet 10 mg-325 mg tablet RxNorm: 2452081 1-2 Tablet(s) PO Q4H 01/17/2013 Inactive PRN PAIN MS Contin 200 mg tablet,extended release RxNorm: 362968 1 Table t(s) PO BID 12/21/2012 01/17/2013 Inactive fluoxetine 20 mg capsule RxNorm: 760930 1 Capsule(s) PO QD 12/06/19 13 02/26/2013 Inactive Synthroid 112 mcg tablet RxNorm: 949872 1 Tablet(s) PO QD 12/06/2012 02/12/2019 Inactive TAKE ONE TABLET BY MOUTH EVERY DAY Ventolin HFA 90 mcg/actuation Aerosol Inhaler RxNorm: 3027722 2 Puff(s) INH Q4H 12/06/2012 No Stop Date Active prn Reglan 10 mg tablet RxNorm: 597438 1 Tablet(s) PO QID b efore meals and at bedtime 11/24/2012 03/12/2013 Inactive Topamax 100 mg tablet RxNorm: 915538 1 Tablet(s) PO QHS 11/16/2012 Inactive Ventolin HFA 90 mcg/actuation Aerosol Inhaler RxNorm: 6095122 2 Puff(s) INH Q4H 11/09/2012 No Stop Date Active prn gabapentin 800 mg tablet RxNorm: 767018 1 Tablet(s) PO QD 10/27/2012 04/09/2013 Inactive TAKE ONE TABLET BY MOUTH EVERY DAY metformin ER 500 mg tablet,extended release 24 hr RxNorm: 86 0977 1 Tablet(s) PO QD 10/27/2012 04/09/2013 Inactive TAKE ONE TABLET BY MOUTH EVERY DAY Symbicort 160 mcg-4.5 mcg/actuation HFA Aerosol Inhaler RxNo rm: 6462739 2 Puff(s) INH BID 10/27/2012 04/09/2013 Inactive INHALE 2 PUFFS O RALLY TWO TIMES A DAY Premarin 0.9 mg tablet RxNorm: 077557 1 Tablet(s) PO QD 10/27/2012 Inactive TAKE ONE TABLET BY MOUTH EVERY DAY Endocet 10 mg-325 mg tablet RxNorm: 8665492 1-2 Tablet(s) PO Q4H 11/24/2012 Inactive PRN PAIN MS Contin 200 mg tablet,extended release RxNorm: 846754 1 Table t(s) PO BID 10/26/2012 11/24/2012 Inactive Soma 350 mg tablet RxNorm: 040437 1 Tablet(s) PO TID 10/04/201211/02 Inactive TAKE ONE TABLET BY MOUTH THREE TIMES A D AY Ventolin HFA 90 mcg/actuation Aerosol Inhaler RxNorm: 1396526 2 Puff(s) INH Q4H 10/03/2012 No Stop Date Active prn Daliresp 500 mcg tablet RxNorm: 1412640 1 Tablet(s) PO QD 09/28/2012 09/27/2012 Inactive Daliresp 500 mcg tablet RxNorm: 1730101 1 Tablet(s) PO QD 09/28/2012 04/25/2013 Inactive fluoxetine 20 mg capsule RxNorm: 150243 1 Capsule(s) PO QD 09/05/2012/06/2012 Inactive Topamax 50 mg tablet RxNorm: 776798 Tablet(s) PO for 1w k then 1 po q HS for 1wk then 2 po q HS 08/29/2012 09/27/2012 Inactive TAKE 1/2 TABLET BY MOUTH AT BEDTIME FOR 1 WEEK, THEN 1 TABLET AT BEDTIME FOR 1 WEEK, THEN 2 TABLETS AT BEDTIME Topamax 100 mg tablet RxNorm: 601181 1 Tablet(s) PO QHS 08/29/2012 Inactive Ventolin HFA 90 mcg/actuation Aerosol Inhaler RxNorm: 9501755 2 Puff(s) INH Q4H 08/19/2012 No Stop Date Active prn Ventolin HFA 90 mcg/actuation Aerosol Inhaler RxNorm: 3163363 2 Puff(s) INH Q4H 08/15/2012 No Stop Date Active prn Synthroid 112 mcg tablet RxNorm: 396177 1 Tablet(s) PO QD 08/10/2012 11/07/2012 Inactive TAKE ONE TABLET BY MOUTH EVERY DAY Synthroid 112 mcg tablet RxNorm: 526749 1 Tablet(s) PO QD 08/01/2012 08/09/2012 Inactive TAKE ONE TABLET BY MOUTH EVERY DAY Reglan 10 mg tablet RxNorm: 173034 1 Tablet(s) PO QID b efore meals and at bedtime 08/01/2012 11/23/2012 Inactive fluoxetine 40 mg capsule RxNorm: 491260 1 Capsule(s) PO QD 08/01/2001/27/2013 Inactive TAKE ONE CAPSULE BY MOUTH EV JANKI MORNING Ventolin HFA 90 mcg/actuation Aerosol Inhaler RxNorm: 2115071 2 Puff(s) INH Q4H 08/01/2012 No Stop Date Active prn Soma 350 mg tablet RxNorm: 348703 1 Tablet(s) PO TID 07/20/201208/18 Inactive TAKE ONE TABLET BY MOUTH THREE TIMES A D AY Spiriva with HandiHaler 18 mcg & inhalation capsules RxNorm: 559458 1 Capsule(s) INH 07/01/2012 12/25/2012 Inactive INHALE CONTENTS OF 1 CAPSULE(S) WITH HANDIHALER ONCE DAILY Zithromax 250 mg Tab RxNorm: 681969 2 Tablet(s) PO QD 06/28/201206/22 Inactive MS Contin 200 mg tablet,extended release RxNorm: 023975 1 Table t(s) PO BID 06/28/2012 07/27/2012 Inactive Endocet 10 mg-325 mg tablet RxNorm: 8858342 1-2 Tablet(s) PO Q4H 07/27/2012 Inactive PRN PAIN Topamax 100 mg tablet RxNorm: 802589 1 Tablet(s) PO QHS 06/28/2012 Inactive 16.2 mg-0.1037 mg-0.0194 mg tablet RxNorm: 3691481 Tablet(s) PO PRN for gas and cramping 06/08/2012 08/23/2013 Inactive TAKE TWO TABLET S BY MOUTH THREE TIMES A DAY NEEDED FOR GAS AND CRAMPING Ventolin HFA 90 mcg/actuation Aerosol Inhaler RxNorm: 8958949 2 Puff(s) INH Q4H 05/23/2012 No Stop Date Active prn Ventolin HFA 90 mcg/actuation Aerosol Inhaler RxNorm: 4133215 2 Puff(s) INH Q4H 05/11/2012 No Stop Date Active prn Synthroid 112 mcg tablet RxNorm: 408941 1 Tablet(s) PO QD 05/09/2012 07/31/2012 Inactive TAKE ONE TABLET BY MOUTH EVERY DAY gabapentin 800 mg tablet RxNorm: 954726 1 Tablet(s) PO QD 05/09/2012 10/26/2012 Inactive TAKE ONE TABLET BY MOUTH EVERY DAY fluoxetine 40 mg capsule RxNorm: 272525 1 Capsule(s) PO QD 05/09/2007/31/2012 Inactive TAKE ONE CAPSULE BY MOUTH EV JANKI MORNING metformin ER 500 mg tablet,extended release 24 hr RxNorm: 86 0977 1 Tablet(s) PO QD 05/09/2012 10/26/2012 Inactive TAKE ONE TABLET BY MOUTH EVERY DAY Premarin 0.9 mg tablet RxNorm: 547451 1 Tablet(s) PO QD 05/09/2012 Inactive TAKE ONE TABLET BY MOUTH EVERY DAY Symbicort 160 mcg-4.5 mcg/actuation HFA Aerosol Inhaler RxNo rm: 4892932 2 Puff(s) INH BID 05/09/2012 10/26/2012 Inactive INHALE 2 PUFFS O RALLY TWO TIMES A DAY Endocet 10 mg-325 mg Tab RxNorm: 3511885 1-2 Tablet(s) PO Q4H 04/2705/26/2012 Inactive PRN PAIN MS Contin 200 mg Tab RxNorm: 268389 1 Tablet(s) PO BID 04/26/201202/2012 Inactive Ventolin HFA 90 mcg/actuation Aerosol Inhaler RxNorm: 8417931 2 Puff(s) INH Q4H 04/25/2012 05/10/2012 Inactive prn Soma 350 mg tablet RxNorm: 103890 2 Tablet(s) PO TID 04/19/201207/19 Inactive TAKE ONE TABLET BY MOUTH THREE TIMES A D AY Ventolin HFA 90 mcg/actuation Aerosol Inhaler RxNorm: 6399859 2 Puff(s) INH Q4H 04/12/2012 04/24/2012 Inactive prn Reglan 10 mg tablet RxNorm: 478273 1 Tablet(s) PO QID b efore meals and at bedtime 04/11/2012 07/31/2012 Inactive MS Contin 200 mg Tab RxNorm: 840601 1 Tablet(s) PO BID 03/30/201202/2012 Inactive Endocet 10 mg-325 mg Tab RxNorm: 5385372 1-2 Tablet(s) PO Q4H 03/3004/26/2012 Inactive PRN PAIN MS Contin 200 mg Tab RxNorm: 126499 1 Tablet(s) PO BID 03/02/201206/2012 Inactive Endocet 10 mg-325 mg Tab RxNorm: 9264330 1-2 Tablet(s) PO Q4H 03/0203/29/2012 Inactive PRN PAIN Daliresp 500 mcg tablet RxNorm: 5013709 1 Tablet(s) PO QD 03/01/2012 09/28/2012 Inactive MS Contin 200 mg Tab RxNorm: 923131 1 Tablet(s) PO BID 02/02/201208/2012 Inactive Endocet 10 mg-325 mg Tab RxNorm: 5714758 1-2 Tablet(s) PO Q4H 02/0103/01/2012 Inactive PRN PAIN fluoxetine 40 mg capsule RxNorm: 742967 1 Capsule(s) PO QD 02/02/2008/01/2012 Inactive TAKE ONE CAPSULE BY MOUTH EV JANKI MORNING Synthroid 112 mcg Tab RxNorm: 215083 1 Tablet(s) PO QD 01/18/2012 Inactive TAKE ONE TABLET BY MOUTH EVERY DAY lactulose 10 gram/15 mL oral solution RxNorm: 753441 [address]s) PO QD 01/18/2012 No Stop Date Active TAKE 1 TABLESPOON BY MOUTH ONCE DAILY Ventolin HFA 90 mcg/actuation Aerosol Inhaler RxNorm: 3730938 2 Puff(s) INH Q4H 01/18/2012 04/11/2012 Inactive prn MS Contin 200 mg Tab RxNorm: 660676 1 Tablet(s) PO BID 01/05/201210/2012 Inactive Endocet 10 mg-325 mg Tab RxNorm: 6466348 1-2 Tablet(s) PO Q4H 01/0502/01/2012 Inactive PRN PAIN ProAir HFA 90 mcg/Actuation Aerosol Inhaler RxNorm: 0022043 2 Pu ff(s) INH Q4H 12/21/2011 No Stop Date Active prn for wheezing or shortness of breath Spiriva with HandiHaler 18 mcg & inhalation Caps RxNorm: 580 261 1 Capsule(s) INH 12/21/2011 06/30/2012 Inactive INHALE CONTENTS OF 1 CAPSULE(S) WITH HANDIHALER ONCE DAILY Reglan 10 mg Tab RxNorm: 717353 1 Tablet(s) PO QID before meals and at bedtime 12/21/2011 04/10/2012 Inactive Synthroid 112 mcg Tab RxNorm: 167927 1 Tablet(s) PO QD 12/21/2011 Inactive TAKE ONE TABLET BY MOUTH EVERY DAY Endocet 10 mg-325 mg Tab RxNorm: 2425540 1-2 Tablet(s) PO Q4H 11/2512/24/2011 Inactive PRN PAIN MS Contin 200 mg Tab RxNorm: 717697 1 Tablet(s) PO BID 11/25/201112/2011 Inactive lactulose 10 gram/15 mL Oral Soln RxNorm: 866245 Milliliter(s) PO 1 No Stop Date Active TAKE 1 TABLESPOON BY MOUTH O NCE DAILY lactulose 10 gram/15 mL Oral Soln RxNorm: 996918 Milliliter(s) PO 1 12/12/2010 11/20/2011 Inactive TAKE 1 TABLESPOON BY MOUTH O NCE DAILY Premarin 0.9 mg Tab RxNorm: 781584 1 Tablet(s) PO QD 10/12/201105/08 Inactive TAKE ONE TABLET BY MOUTH EVERY DAY fluoxetine 20 mg capsule RxNorm: 904420 1 Capsule(s) PO QD 10/12/2009/05/2012 Inactive TAKE ONE CAPSULE BY MOUTH EV JANKI DAY Synthroid 112 mcg Tab RxNorm: 802440 1 Tablet(s) PO QD 10/12/2011 Inactive TAKE ONE TABLET BY MOUTH EVERY DAY metformin ER 500 mg 24 hr Tab RxNorm: 366224 1 Tablet(s) PO QD 09/2311/10/2011 Inactive TAKE ONE TABLET BY MOUTH GLYNN RY DAY Synthroid 112 mcg Tab RxNorm: 144751 1 Tablet(s) PO QD 10/12/2011 Inactive TAKE ONE TABLET BY MOUTH EVERY DAY metformin ER 500 mg 24 hr Tab RxNorm: 409031 1 Tablet(s) PO QD 09/2310/11/2011 Inactive TAKE ONE TABLET BY MOUTH GLYNN DAY Prevacid 30 mg Cap RxNorm: 910625 Capsule(s) PO 10/12/2011 01/25/2012 Inactive TAKE ONE CAPSULE BY MOUTH EVERY DAY Symbicort 160 mcg-4.5 mcg/actuation HFA Aerosol Inhaler RxNo rm: 4895352 2 Puff(s) INH BID 10/12/2011 05/08/2012 Inactive INHALE 2 PUFFS O RALLY TWO TIMES A DAY gabapentin 800 mg Tab RxNorm: 883534 1 Tablet(s) PO QD 10/12/2011 Inactive TAKE ONE TABLET BY MOUTH EVERY DAY MS Contin 200 mg Tab RxNorm: 045443 1 Tablet(s) PO BID 09/23/201111/2010 Inactive Endocet 10 mg-325 mg Tab RxNorm: 0061421 1-2 Tablet(s) PO Q4H 09/2310/22/2011 Inactive PRN PAIN Endocet 10 mg-325 mg Tab RxNorm: 5137272 1-2 Tablet(s) PO Q4H 08/2109/19/2011 Inactive PRN PAIN MS Contin 200 mg Tab RxNorm: 290047 1 Tablet(s) PO BID 08/21/2011 Inactive Diflucan 100 mg Tab RxNorm: 690840 1 Tablet(s) PO QD 08/10/201108/16 Inactive cefdinir 300 mg Cap RxNorm: 661309 2 Capsule(s) PO QD 08/10/201107/24 Inactive Reglan 10 mg Tab RxNorm: 627954 1 Tablet(s) PO AC & HS 07/15/2011 Inactive Endocet 10 mg-325 mg Tab RxNorm: 3764888 1-2 Tablet(s) PO Q4H 07/1508/13/2011 Inactive PRN PAIN One Touch Ultra Test strips RxNorm: Miscellaneous BID 06/11/2011 1 01/16/2014 Inactive TEST TWO TIMES A DAY lactulose 10 gram/15 mL Oral Soln RxNorm: 953671 Milliliter(s) PO 0 06/10/2011 10/11/2011 Inactive TAKE 1 TABLESPOON BY MOUTH O NCE DAILY Chantix Continuing Month Aníbal 1 mg Tab RxNorm: 757594 Tablet(s) PO 0 06/10/2011 11/02/2011 Inactive TAKE DIRECTED - PER PACK[employer] GE INSTRUCTIONS fluoxetine 40 mg Cap RxNorm: 688182 Capsule(s) PO 06/10/2011 02/02/20 Inactive TAKE ONE CAPSULE BY MOUTH EVERY MORNING Chantix Continuing Month Aníbal 1 mg Tab RxNorm: 873222 Ta blet(s) PO TAKE DIRECTED - PER PACKAGE INSTRUCTIONS 05/13/2011 06/09/2011 Inactive Soma 350 mg Tab RxNorm: 493502 Tablet(s) PO TAKE ON E TABLET BY MOUTH THREE TIMES A DAY 05/13/2011 04/18/2012 Inactive Chantix Continuing Month Aníbal 1 mg Tab RxNorm: 252760 Ta blet(s) PO as directed per package instructions. 04/22/2011 05/12/2011 Inactive Symbicort 160 mcg-4.5 mcg/Actuation HFA Aerosol Inhaler RxNo rm: 3420562 HFA Aerosol Inhaler INH INHALE 2 PUFFS ORALLY TWO TIMES A DAY 04/13/2011 Inactive Synthroid 112 mcg Tab RxNorm: 375346 Tablet(s) PO TAKE ONE TABLET BY MOUTH EVERY DAY 04/13/2011 10/12/2011 Inactive Premarin 0.9 mg Tab RxNorm: 676315 Tablet(s) PO TAKE ON E TABLET BY MOUTH EVERY DAY 04/13/2011 10/12/2011 Inactive gabapentin 800 mg Tab RxNorm: 156602 Tablet(s) PO TAKE ONE TABLET BY MOUTH EVERY DAY 04/13/2011 10/12/2011 Inactive Prevacid 30 mg Cap RxNorm: 300867 1 Capsule(s) PO QD 04/13/201110/11 Inactive Spiriva with HandiHaler 18 mcg & inhalation Caps RxNorm: 580 261 Capsule(s) INH INHALE CONTENTS OF 1 CAPSULE(S) WITH HANDIHALER ONCE DAILY 04/13/2011 12/21/2011 Inactive metformin ER 500 mg 24 hr Tab RxNorm: 183589 Tablet(s) PO TAKE ONE TABLET BY MOUTH EVERY DAY 04/13/2011 10/12/2011 Inactive Soma 350 mg Tab RxNorm: 163876 1 Tablet(s) PO QID 03/30/2011 02/13/20 19 Inactive fluoxetine 20 mg Cap RxNorm: 155271 Capsule(s) PO TAKE ONE CAPSULE BY MOUTH EVERY DAY 03/25/2011 10/12/2011 Inactive cefdinir 300 mg Cap RxNorm: 261165 2 Capsule(s) PO QD 03/19/201105/2011 Inactive 16.2 mg-0.1037 mg-0.0194 mg Tab RxNorm: 4926034 2 Tablet(s) PO TID PRN for gas and cramping 03/16/2011 07/13/2011 Inactive Soma 350 mg Tab RxNorm: 811638 2 Tablet(s) PO TID 03/16/2011 03/29/20 11 Inactive Chantix Starting Month Aníbal 0.5 mg (11)-1 mg (3x14) Tab s in a Dose Pack RxNorm: 908970 Tablet(s) PO as directed 03/02/2011 No Stop Date Active diazepam 10 mg Tab RxNorm: 137557 1 Tablet(s) PO BID 02/10/201101/19 Inactive Zofran 4 mg tablet RxNorm: 105060 1 Tablet(s) PO Q4H prn nausea 02/16/2011 Inactive Diflucan 100 mg Tab RxNorm: 642301 1 Tablet(s) PO QD 01/18/201101/24 Inactive Premarin 0.625 mg/g Vaginal Cream RxNorm: 131701 VAG In sert 1gm vaginally at bedtime 3 times weekly 01/18/2011 02/12/2019 Inactive loratadine 10 mg Tab RxNorm: 478549 1 Tablet(s) PO QD 12/17/201003/2012 Inactive Spiriva with HandiHaler 18 mcg & inhalation Caps RxNorm: 580 261 1 Capsule(s) INH QD 12/17/2010 04/12/2011 Inactive Diflucan 100 mg Tab RxNorm: 389723 1 Tablet(s) PO QD 12/17/201012/23 Inactive diazepam 10 mg Tab RxNorm: 611882 1 Tablet(s) PO BID and PRN 201002/12/2019 Inactive One Touch Ultra Test Strips RxNorm: InVt BID Zainab t blood sugar at least twice daily. 11/11/2010 06/11/2011 Inactive fluoxetine 40 mg Cap RxNorm: 633127 1 Capsule(s) PO QAM 11/11/2010 Inactive diazepam 10 mg Tab RxNorm: 758060 1 Tablet(s) PO BID and PRN 200911/12/2010 Inactive Bactrim DS 800 mg-160 mg Tab RxNorm: 607110 1 Tablet(s) PO BID 09/2210/15/2010 Inactive fluoxetine 20 mg Cap RxNorm: 491937 1 Capsule(s) PO QD 10/02/201008/2011 Inactive Bactrim DS 800 mg-160 mg Tab RxNorm: 715031 1 Tablet(s) PO BID 01/201010/03/2010 Inactive Zofran 4 mg Tab RxNorm: 472831 1 Tablet(s) PO Q4H prn nausea 200910/16/2010 Inactive 16.2 mg-0.1037 mg-0.0194 mg Tab RxNorm: 5804949 2 Tablet(s) PO TID PRN for gas and cramping 09/17/2010 10/21/2010 Inactive Gabapentin 800 mg Tab RxNorm: 216685 1 Tablet(s) PO QD 09/16/2010 Inactive ProAir HFA 90 mcg/Actuation Aerosol Inhaler RxNorm: 2081980 2 Puff(s) INH Q4H prn shortness of breath 09/15/2010 12/13/2010 Inactive gabapentin 800 mg Tab RxNorm: 020292 1 Tablet(s) PO QD 09/15/2010 Inactive Prevacid 30 mg Cap RxNorm: 100939 1 Capsule(s) PO QD 09/15/201004/12 Inactive loratadine 10 mg Tab RxNorm: 702597 1 Tablet(s) PO QD 09/15/201011/23 Inactive Premarin 0.9 mg Tab RxNorm: 346408 1 Tablet(s) PO QD 09/15/201004/12 Inactive Synthroid 112 mcg Tab RxNorm: 355723 1 Tablet(s) PO QD 09/15/2010 Inactive metformin ER 500 mg 24 hr Tab RxNorm: 947202 1 Tablet(s) PO QD 08/2304/12/2011 Inactive Symbicort 160 mcg-4.5 mcg/Actuation Inhalation HFA Aer osol Inhaler RxNorm: 0704427 2 Puff(s) INH BID 09/15/2010 04/12/2011 Inactive diazepam 10 mg Tab RxNorm: 462008 1 Tablet(s) PO BID and PRN 200910/13/2010 Inactive Phentermine 37.5 mg Cap RxNorm: 838138 1 Capsule(s) PO QD 09/02/2010 11/02/2011 Inactive ProAir HFA 90 mcg/Actuation Aerosol Inhaler RxNorm: 8086196 2 Puff(s) INH Q4H prn shortness of breath 08/07/2010 No Stop Date Active Premarin 0.9 mg Tab RxNorm: 183684 1 Tablet(s) PO QD 08/07/201009/14 Inactive Loratadine 10 mg Tab RxNorm: 869995 1 Tablet(s) PO QD 08/07/201008/23 Inactive Lactulose 10 gram/15 mL Oral Soln RxNorm: 472915 1 Unit Dose PO QD 08/07/2010 02/12/2019 Inactive Zofran 4 mg Tab RxNorm: 401089 1 Tablet(s) PO Q4H prn nausea 2009 No Stop Date Active Gabapentin 800 mg Tab RxNorm: 794515 1 Tablet(s) PO QD 08/07/2010 Inactive Synthroid 112 mcg Tab RxNorm: 909522 1 Tablet(s) PO QD 08/07/2010 Inactive Metformin ER 500 mg 24 hr Tab RxNorm: 284349 1 Tablet(s) PO QD 07/2309/14/2010 Inactive Vitamin D 1,000 unit Tab RxNorm: 114193 1 Tablet(s) PO TID 08/07/2002/12/2019 Inactive Symbicort 160 mcg-4.5 mcg/Actuation Inhalation HFA Aer osol Inhaler RxNorm: 9082807 2 Puff(s) INH BID 08/07/2010 09/14/2010 Inactive Prevacid 30 mg Cap RxNorm: 384849 1 Capsule(s) PO QD 08/07/201009/14 Inactive Metformin ER 500 mg 24 hr Tab RxNorm: 961852 1 Tablet(s) PO QD 06/2308/06/2010 Inactive Vitamin D 1,000 unit Tab RxNorm: 266639 1 Tablet(s) PO TID 07/14/2008/06/2010 Inactive Synthroid 112 mcg Tab RxNorm: 323624 1 Tablet(s) PO QD 07/14/2010 Inactive Lactulose 10 gram/15 mL Oral Soln RxNorm: 296251 1 Unit Dose PO QD 07/14/2010 08/06/2010 Inactive Levaquin 500 mg Tab RxNorm: 500390 1 Tablet(s) PO QD 07/14/201007/27 Inactive Premarin 0.9 mg Tab RxNorm: 719752 1 Tablet(s) PO QD 07/14/201008/06 Inactive ProAir HFA 90 mcg/Actuation Aerosol Inhaler RxNorm: 6651478 2 Puff(s) INH Q4H prn shortness of breath 07/14/2010 No Stop Date Active Prevacid 30 mg Cap RxNorm: 188548 1 Capsule(s) PO QD 07/14/201008/06 Inactive Zofran 4 mg Tab RxNorm: 420031 1 Tablet(s) PO Q4H prn nausea 2009 No Stop Date Active Symbicort 160 mcg-4.5 mcg/Actuation Inhalation HFA Aer osol Inhaler RxNorm: 6134998 2 Puff(s) INH BID 07/14/2010 08/06/2010 Inactive Loratadine 10 mg Tab RxNorm: 270554 1 Tablet(s) PO QD 07/14/201007/23 Inactive Gabapentin 800 mg Tab RxNorm: 480163 1 Tablet(s) PO QD 07/14/2010 Inactive Metformin ER 500 mg 24 hr Tab RxNorm: 815888 1 Tablet(s) PO 010 07/13/2010 Inactive Diazepam 10 mg Tab RxNorm: 671067 1 Tablet(s) PO BID and PRN 200909/06/2010 Inactive Premarin 0.9 mg Tab RxNorm: 874160 1 Tablet(s) PO QD 06/09/201007/13 Inactive Zofran 4 mg Tab RxNorm: 382978 1 Tablet(s) PO Q4H prn nausea 2009 No Stop Date Active ProAir HFA 90 mcg/Actuation Aerosol Inhaler RxNorm: 7246051 2 Puff(s) INH Q4H prn shortness of breath 06/09/2010 No Stop Date Active Gabapentin 800 mg Tab RxNorm: 632260 1 Tablet(s) PO QD 06/09/2010 Inactive Loratadine 10 mg Tab RxNorm: 388357 1 Tablet(s) PO QD 06/09/201006/23 Inactive Lactulose 10 gram/15 mL Oral Soln RxNorm: 872158 1 Unit Dose PO QD 06/09/2010 07/13/2010 Inactive Prevacid 30 mg Cap RxNorm: 672042 1 Capsule(s) PO QD 06/09/201007/13 Inactive Synthroid 112 mcg Tab RxNorm: 897794 1 Tablet(s) PO QD 06/09/2010 Inactive Symbicort 160 mcg-4.5 mcg/Actuation Inhalation HFA Aer osol Inhaler RxNorm: 9251048 2 Puff(s) INH BID 06/09/2010 07/13/2010 Inactive Omnicef 300 mg Cap RxNorm: 581541 2 Capsule(s) PO QD 05/07/201005/20 Inactive Metformin 500 mg Tab RxNorm: 101859 1 Tablet(s) PO QD 05/06/201005/22 Inactive ProAir HFA 90 mcg/Actuation Aerosol Inhaler RxNorm: 0508017 2 Puff(s) INH Q4H prn shortness of breath 05/06/2010 No Stop Date Active lactulose 10 gram/15 mL Oral Soln RxNorm: 699391 1 Unit Dose PO QD 05/06/2010 06/10/2011 Inactive Loratadine 10 mg Tab RxNorm: 866110 1 Tablet(s) PO QD 05/06/201005/22 Inactive Synthroid 112 mcg Tab RxNorm: 219084 1 Tablet(s) PO QD 05/06/2010 Inactive Symbicort 160 mcg-4.5 mcg/Actuation Inhalation HFA Aer osol Inhaler RxNorm: 0134373 2 Puff(s) INH BID 05/06/2010 06/08/2010 Inactive Gabapentin 800 mg Tab RxNorm: 782129 1 Tablet(s) PO QD 05/06/2010 Inactive 16.2 mg-0.1037 mg-0.0194 mg Tab RxNorm: 6719919 2 Tablet(s) PO TID PRN for gas and cramping 05/06/2010 05/12/2010 Inactive Zofran 4 mg Tab RxNorm: 546688 1 Tablet(s) PO Q4H prn nausea 200904/13/2010 Inactive MS Contin 60 mg Tab RxNorm: 951493 3 Tablet(s) PO BID 04/09/201004/22 Inactive Soma 350 mg Tab RxNorm: 423905 2 Tablet(s) PO TID 04/09/2010 05/08/20 10 Inactive Symbicort 160 mcg-4.5 mcg/Actuation Inhalation HFA Aer osol Inhaler RxNorm: 8630481 2 Puff(s) INH BID 04/08/2010 05/05/2010 Inactive Doxycycline 100 mg Cap RxNorm: 3114637 1 Capsule(s) PO BID 04/08/20 10 04/17/2010 Inactive Triamterene-Hydrochlorothiazide 37.5 mg-25 mg Cap RxNorm: 19 8316 1 Capsule(s) PO QAM 04/08/2010 09/04/2010 Inactive fluoxetine 40 mg Cap RxNorm: 322106 1 Capsule(s) PO QAM 04/08/2010 Inactive Morphine SR 120 mg multiphase 24 hr Cap RxNorm: 636387 1 Capsul e(s) PO 03/11/2010 04/07/2010 Inactive Endocet 10 mg-325 mg Tab RxNorm: 4181017 1-2 Tablet(s) PO Q4H MO N PAIN 03/11/2010 04/09/2010 Inactive Savella 100 mg Tab RxNorm: 338731 1 Tablet(s) PO BID 03/10/201004/09 Inactive Soma 350 mg Tab RxNorm: 404754 1 Tablet(s) PO TID prn spasm 010 04/09/2010 Inactive Savella 100 mg Tab RxNorm: 438711 1 Tablet(s) PO BID 02/03/201004/09 Inactive Aspirin 81 mg Tab RxNorm: 439411 1 Tablet(s) PO QD No Start Date Active Zyrtec 10 mg Tab RxNorm: 9818666 1 Tablet(s) PO QD No Start Date Active One Touch Ultra Test Strips RxNorm: Misc test at least t wice daily. No Start Date Active coenzyme Q10 200 mg capsule RxNorm: 628329 1 Capsule(s) PO QD No Star t Date Active One Touch Ultra Test Strips RxNorm: InVt BID Zainab t blood sugar at least twice daily. No Start Date 11/10/2010 Inactive Gabapentin 800 mg Tab RxNorm: 223446 1 Tablet(s) PO QD No Start Date 05/05/2010 Inactive Abilify 5 mg tablet RxNorm: 892090 1 Tablet(s) PO QD No Start Date Inactive Chantix 1 mg Tab RxNorm: 954829 1 Tablet(s) PO BID No Start Date 10/22 Inactive Ozempic 0.25 mg or 0.5 mg (2 mg/1.5 mL) subcutaneous p en injector RxNorm: 5490720 .25 Milligram(s) SQ QW No Start Date 07/04/2019 Inactive lancets 28 gauge RxNorm: Miscellaneous As needed for blo od glucose sticks No Start Date 08/23/2013 Inactive potassium chloride ER 20 mEq tablet,extended release RxNorm: 426406 2 Tablet(s) PO QD No Start Date 09/26/2018 Inactive Ventolin HFA 90 mcg/actuation Aerosol Inhaler RxNorm: 344659 1 2 Puff(s) INH Q4H prn No Start Date 01/17/2012 Inactive potassium chloride ER 20 mEq tablet,extended release RxNorm: 005851 2 Tablet(s) PO QD No Start Date 10/19/2018 Inactive Januvia 100 mg tablet RxNorm: 908446 1 Tablet(s) PO QD No Start Date 09/10/2015 Inactive Medrol (Aníbal) 4 mg Tabs in a Dose Pack RxNorm: 897918 Tablet(s) PO N o Start Date 08/09/2011 Inactive as directed Zithromax Z-Aníbal 250 mg Tab RxNorm: 139567 Tablet(s) PO No Start Date 01/25/2012 Inactive as directed vitamin B6-vitamin E-magnesium tablet RxNorm: 1 Tablet(s ) PO QHS with INH No Start Date 03/30/2018 Inactive prednisone 20 mg Tab RxNorm: 874231 1 Tablet(s) PO TID for 1wk then 1 po BID for 1wk No Start Date 01/25/2012 Inactive furosemide 40 mg tablet RxNorm: 692603 1 Tablet(s) PO QAM No Start Date 10/09/2018 Inactive Vitamin D3 1000 units Capsule RxNorm: 1 Capsule(s) PO TID No S tart Date 03/19/2015 Inactive Zofran 4 mg Tab RxNorm: 890627 1 Tablet(s) PO Q4H prn nausea No Sta rt Date 04/13/2010 Inactive Premarin 0.625 mg/g Vaginal Cream RxNorm: 577971 1 Gram (s) VAG QHS 3 times a week No Start Date 09/22/2017 Inactive oxycodone 10 mg tablet RxNorm: 1977652 1-2 Tablet(s) PO QID as n eeded for pain No Start Date 11/04/2015 Inactive Nicoderm CQ 21 mg/24 hr daily Patch RxNorm: 155670 1 Applicatio n TD QD No Start Date 08/05/2015 Inactive Topamax 50 mg tablet RxNorm: 192276 1/2 Tablet(s) PO QH S for 1wk then 1 po q HS for 1wk then 2 po q HS No Start Date 06/27/2012 Inactive Chantix Starting Month Aníbal 0.5 mg (11)-1 mg (3x14) Tab s in a Dose Pack RxNorm: 856059 Tablet(s) PO as directed No Start Date 03/01/2011 Inactive Trulicity 0.75 mg/0.5 mL subcutaneous pen injector RxNorm: 1 466547 Milliliter(s) SQ No Start Date 07/04/2019 Inactive Medrol (Aníbal) 4 mg Tabs in a Dose Pack RxNorm: 188970 Tablet(s) PO N o Start Date 01/25/2012 Inactive as directed Duragesic 100 mcg/hr Transderm Patch RxNorm: 286822 2 A pplication TD Q48H for pain No Start Date 09/05/2013 Inactive Premarin 0.9 mg Tab RxNorm: 863374 1 Tablet(s) PO QD No Start Date Inactive Zithromax Z-Aníbal 250 mg Tab RxNorm: 546578 Tablet(s) PO as direc chinmay No Start Date 01/25/2012 Inactive ondansetron 8 mg disintegrating tablet RxNorm: 929875 1 Tablet(s) PO Q6H as needed No Start Date 10/10/2018 Inactive oxycodone 15 mg tablet RxNorm: 1131120 1 Tablet(s) PO QID as nee ded for pain No Start Date 03/05/2019 Inactive ProAir HFA 90 mcg/Actuation Aerosol Inhaler RxNorm: 349073 2 Puff(s) INH Q4H prn for wheezing or shortness of breath No Start Date 12/21/2011 Inactive pravastatin 40 mg tablet RxNorm: 156758 1/2 Tablet(s) PO QOD No Sta rt Date 04/09/2015 Inactive ipratropium-albuterol 0.5 mg-3 mg(2.5 mg base)/3 mL ne bulization soln RxNorm: 6366728 1 Unit Dose INH Q4H as needed No Start Date 09/09/2016 Inactive furosemide 40 mg tablet RxNorm: 955998 1 Tablet(s) PO QAM as ne eded No Start Date 09/24/2019 Inactive Vitamin D2 oral RxNorm: 4018 oral No Start Date 03/18/2015 Inacti ve pravastatin 40 mg tablet RxNorm: 056305 1/2 Tablet(s) PO QD No Star t Date 04/09/2015 Inactive ondansetron HCl 4 mg tablet RxNorm: 241101 1 Tablet(s) PO Q4H as needed for nausea and vomiting No Start Date 04/07/2016 Inactive furosemide 40 mg tablet RxNorm: 864473 2 Tablet(s) PO QAM No Start Date 09/26/2018 Inactive gabapentin 800 mg tablet RxNorm: 445551 1/2 Tablet(s) PO BID No Sta rt Date 06/21/2017 Inactive gabapentin 800 mg tablet RxNorm: 943523 1/2 Tablet(s) PO BID No Sta rt Date 07/05/2017 Inactive ProAir HFA 90 mcg/Actuation Aerosol Inhaler RxNorm: 3026120 2 Puff(s) INH Q4H prn shortness of breath No Start Date 05/05/2010 Inactive scopolamine 1 mg over 3 days transdermal patch RxNorm: 16996 2 1 Application TD behind ear. Take off after three days No Start Date 10/10/2018 Inactive Metformin 500 mg Tab RxNorm: 600005 1 Tablet(s) PO QD No Start Date 0 05/05/2010 Inactive MS Contin 200 mg Tab RxNorm: 863922 1 Tablet(s) PO BID No Start Date 08/20/2011 Inactive Belladonna-Phenobarbital 48 mg tablet,extended release RxNor m: 2 Tablet(s) PO TID No Start Date 06/04/2016 Inactive Synthroid 112 mcg Tab RxNorm: 646099 1 Tablet(s) PO QD No Start Date 05/05/2010 Inactive Zegerid 40 mg-1.1 gram Cap RxNorm: 836024 1 Capsule(s) PO QD No Sta rt Date 01/25/2012 Inactive Premarin 0.625 mg/g Vaginal Cream RxNorm: 681978 VAG In sert 1gm vaginally at bedtime 3 times weekly No Start Date 01/17/2011 Inactive potassium chloride ER 20 mEq tablet,extended release RxNorm: 379019 1 Tablet(s) PO QD No Start Date 04/24/2019 Inactive methocarbamol 750 mg tablet RxNorm: 991654 2 Tablet(s) PO TID as needed for muscle spasm No Start Date 07/08/2014 Inactive Biaxin XL Aníbal 500 mg 24 hr Tab RxNorm: 362592 Tablet(s) PO as d irected No Start Date 04/24/2013 Inactive Vitamin D3 1,000 unit tablet RxNorm: 813982 3 Tablet(s) PO QD No St art Date 06/01/2017 Inactive Morphine SR 120 mg multiphase 24 hr Cap RxNorm: 633141 1 Capsul e(s) PO BID No Start Date 04/09/2010 Inactive Silvadene 1 % topical cream RxNorm: 418405 1 Application TOP BI D to burn area No Start Date 01/31/2017 Inactive Prednisone 20 mg Tab RxNorm: 796225 1 Tablet(s) PO TID for 3days then BID for 4days No Start Date 01/25/2012 Inactive gabapentin 600 mg tablet RxNorm: 136332 1 Tablet(s) PO BID No Start Date 01/21/2015 Inactive topiramate 50 mg tablet RxNorm: 099159 1 Tablet(s) PO QHS No Start Date 03/30/2018 Inactive Januvia 100 mg tablet RxNorm: 711183 1/2 Tablet(s) PO QD No Start D ate 12/25/2015 Inactive Diazepam 10 mg Tab RxNorm: 130280 1 Tablet(s) PO BID and PRN No Sta rt Date 06/08/2010 Inactive Medication Administered No Medication Administered data Immunizations Vaccine Codes Date Status Influenza CVX: 141 09/28/2012 Pneumovax Unknown 09/28/2012 Influenza (Adult) CVX: 141 09/02/2010 Results No Results data Procedures Procedure Codes Date THER/PROPH/DIAG INJ SC/IM CPT-4: 42930 07/10/2019 METHYLPREDNISOLONE INJECTION CPT-4: J2930 07/10/2019 URINALYSIS NONAUTO W/O SCOPE CPT-4: 62422 09/06/2018 URINE CULTURE/ COLONY COUNT CPT-4: 81360 09/06/2018 DRAIN/INJECT JOINT/BURSA CPT-4: 02312 04/29/2017 TRIAMCINOLONE ACET INJ NOS CPT-4: J3301 04/29/2017 DEXAMETHASONE SODIUM PHOS CPT-4: J1100 04/29/2017 INFLUENZA ASSAY W/OPTIC CPT-4: 45731 12/01/2016 RESPIRATORY CULTURE & STAIN CPT-4: 11306 07/09/2016 TB INTRADERMAL TEST CPT-4: 44279 04/21/2016 DRAIN/INJECT JOINT/BURSA CPT-4: 77775 11/07/2013 METHYLPREDNISOLONE 40 MG INJ CPT-4: J1030 11/07/2013 TRIAMCINOLONE ACET INJ NOS CPT-4: J3301 11/07/2013 DRAIN/INJECT JOINT/BURSA CPT-4: 79945 08/08/2013 METHYLPREDNISOLONE 40 MG INJ CPT-4: J1030 08/08/2013 TRIAMCINOLONE ACET INJ NOS CPT-4: J3301 08/08/2013 FLU VACCINE 3 YRS & > IM UP 64 CPT-4: 79914 2 PNEUMOCOCCAL VACC 23 ADITYA IM CPT-4: 02960 09/28/2012 IMMUNIZATION ADMIN CPT-4: 96835 09/28/2012 IMMUNIZATION ADMIN EACH ADD CPT-4: 29963 09/28/2012 FLU VACCINE 3 YRS & > IM UP 64 CPT-4: 84550 0 IMMUNIZATION ADMIN CPT-4: 93941 09/02/2010 METHYLPREDNISOLONE INJECTION CPT-4: J2930 05/07/2010 THER/PROPH/DIAG INJ SC/IM CPT-4: 09216 05/07/2010 Vital Signs Date Vital 10/30/2019 Blood [...] 1: 122/78 Code: 8480-6 BMI: 29.5 Code: 63079-1 Heart Rate 1: 76 bpm Height: 5'4" Respiratory Rate: 20 bpm SpO2: 96% Tempera ture: 37.0 (C) / 98.6 (F) Weight: 172 lbs 01/25/2019 Blood Pressure 1: 132/80 Code: 8480-6 BMI: 29.7 Code: 86488-3 Heart Rate 1: 84 bpm Height: 5'4" Respiratory Rate: 22 bpm SpO2: 98% Tempera ture: 36.9 (C) / 98.4 (F) Weight: 173 lbs 01/03/2019 Blood Pressure 1: 116/70 Code: 8480-6 BMI: 29.5 Code: 58019-5 Heart Rate 1: 92 bpm Height: 5'4" Respiratory Rate: 24 bpm SpO2: 98% Tempera ture: 37.2 (C) / 98.9 (F) Weight: 172 lbs 11/21/2018 Blood Pressure 1: 146/82 Code: 8480-6 BMI: 28.2 Code: 01932-3 Heart Rate 1: 88 bpm Height: 5'4" Respiratory Rate: 22 bpm SpO2: 97% Tempera ture: 36.9 (C) / 98.4 (F) Weight: 164 lbs 10/27/2018 Blood Pressure 1: 122/70 Code: 8480-6 BMI: 27.6 Code: 61451-1 Heart Rate 1: 88 bpm Height: 5'4" Respiratory Rate: 20 bpm SpO2: 96% Tempera ture: 36.8 (C) / 98.3 (F) Weight: 161 lbs 10/18/2018 Blood Pressure 1: 126/70 Code: 8480-6 BMI: 28.3 Code: 20767-7 Heart Rate 1: 76 bpm Height: 5'4" Respiratory Rate: 20 bpm SpO2: 95% Tempera ture: 37.0 (C) / 98.6 (F) Weight: 165 lbs 09/27/2018 Blood Pressure 1: 124/78 Code: 8480-6 BMI: 27.1 Code: 12959-1 Heart Rate 1: 88 bpm Height: 5'4" Respiratory Rate: 20 bpm SpO2: 98% Tempera ture: 36.4 (C) / 97.6 (F) Weight: 158 lbs 09/14/2018 Blood Pressure 1: 140/72 Code: 8480-6 BMI: 26.1 Code: 90069-3 Heart Rate 1: 100 bpm Height: 5'4" Respiratory Rate: 20 bpm SpO2: 97% Tempera ture: 36.9 (C) / 98.4 (F) Weight: 152 lbs 09/06/2018 Blood Pressure 1: 156/82 Code: 8480-6 BMI: 26.3 Code: 55696-4 Heart Rate 1: 100 bpm Height: 5'4" Respiratory Rate: 28 bpm SpO2: 95% Tempera ture: 37.2 (C) / 98.9 (F) Weight: 153 lbs 08/16/2018 Blood Pressure 1: 130/78 Code: 8480-6 Heart Rate 1: 87 bpm Respiratory Rate: 24 bpm SpO2: 94% Temperature: 36.9 (C) / 98.4 (F) We ight: 147 lbs 8 oz 07/07/2018 Blood Pressure 1: 116/78 Code: 8480-6 BMI: 22.7 Code: 68011-6 Heart Rate 1: 88 bpm Height: 5'4" Respiratory Rate: 22 bpm SpO2: 98% Tempera ture: 36.5 (C) / 97.7 (F) Weight: 132 lbs 05/31/2018 Blood Pressure 1: 128/78 Code: 8480-6 BMI: 22.3 Code: 90972-8 Heart Rate 1: 92 bpm Height: 5'4" Respiratory Rate: 26 bpm SpO2: 94% Tempera ture: 36.7 (C) / 98.1 (F) Weight: 130 lbs 03/31/2018 Blood Pressure 1: 136/78 Code: 8480-6 BMI: 21.5 Code: 36225-8 Heart Rate 1: 76 bpm Height: 5'4" Respiratory Rate: 24 bpm SpO2: 95% Tempera ture: 36.8 (C) / 98.3 (F) Weight: 125 lbs 01/26/2018 Blood Pressure 1: 142/64 Code: 8480-6 BMI: 20.6 Code: 78348-8 Heart Rate 1: 90 bpm Height: 5'4" Respiratory Rate: 24 bpm SpO2: 92% Tempera ture: 36.3 (C) / 97.3 (F) Weight: 120 lbs 10/26/2017 Blood Pressure 1: 124/70 Code: 8480-6 BMI: 20.3 Code: 71985-3 Heart Rate 1: 76 bpm Height: 5'4" Respiratory Rate: 22 bpm SpO2: 94% Tempera ture: 36.7 (C) / 98.1 (F) Weight: 118 lbs 09/23/2017 Blood Pressure 1: 106/70 Code: 8480-6 BMI: 19.2 Code: 45621-7 Heart Rate 1: 76 bpm Height: 5'4" Respiratory Rate: 20 bpm SpO2: 94% Tempera ture: 36.8 (C) / 98.3 (F) Weight: 112 lbs 08/12/2017 Blood Pressure 1: 116/68 Code: 8480-6 BMI: 20.1 Code: 85000-3 Heart Rate 1: 80 bpm Height: 5'4" Respiratory Rate: 22 bpm SpO2: 95% Tempera ture: 36.8 (C) / 98.2 (F) Weight: 117 lbs 07/06/2017 Blood Pressure 1: 136/78 Code: 8480-6 BMI: 20.6 Code: 15349-7 Heart Rate 1: 76 bpm Height: 5'4" Respiratory Rate: 24 bpm SpO2: 96% Tempera ture: 36.8 (C) / 98.2 (F) Weight: 120 lbs 06/02/2017 Blood Pressure 1: 112/70 Code: 8480-6 Heart Rate 1: 92 bpm Height: 5'4" Respiratory Rate: 24 bpm SpO2: 95% Temperature: 37.0 (C) / 98.6 (F) Weight: 04/29/2017 Blood Pressure 1: 94/52 Code: 8480-6 BMI: 19.6 C ode: 26576-6 Heart Rate 1: 84 bpm Height: 5'4" [...] 92/58 Code: 8480-6 BMI: 19.2 C ode: 74256-7 Heart Rate 1: 84 bpm Height: 5'4" Respiratory Rate: 26 bpm SpO2: 95% Tempera ture: 36.7 (C) / 98.0 (F) Weight: 112 lbs 12/01/2016 Blood Pressure 1: 114/70 Code: 8480-6 BMI: 19.2 Code: 81373-7 Heart Rate 1: 96 bpm Height: 5'4" Respiratory Rate: 28 bpm SpO2: 93% Tempera ture: 38.3 (C) / 101.0 (F) Weight: 112 lbs 10/27/2016 Blood Pressure 1: 126/66 Code: 8480-6 BMI: 19.6 Code: 40262-9 Heart Rate 1: 92 bpm Height: 5'4" Respiratory Rate: 28 bpm SpO2: 90% Tempera ture: 36.8 (C) / 98.3 (F) Weight: 114 lbs 09/09/2016 Blood Pressure 1: 126/74 Code: 8480-6 Heart Rate 1: 104 bpm Height: 5'4" Respiratory Rate: 32 bpm SpO2: 88% Temperature: 37 .2 (C) / 99.0 (F) 08/26/2016 Blood Pressure 1: 134/82 Code: 8480-6 BMI: 22.0 Code: 22279-5 Heart Rate 1: 84 bpm Height: 5'4" Respiratory Rate: 24 bpm SpO2: 94% Tempera ture: 36.8 (C) / 98.3 (F) Weight: 128 lbs 05/21/2016 Blood Pressure 1: 142/80 Code: 8480-6 BMI: 21.6 Code: 25443-2 Heart Rate 1: 104 bpm Height: 5'4" Respiratory Rate: 22 bpm SpO2: 93% Tempera ture: 36.0 (C) / 96.8 (F) Weight: 126 lbs 03/25/2016 Blood Pressure 1: 126/62 Code: 8480-6 Heart Rate 1: 88 bpm Respiratory Rate: 20 bpm SpO2: 92% Temperature: 36.8 (C) / 98.3 (F) We ight: 130 lbs 01/23/2016 Blood Pressure 1: 146/82 Code: 8480-6 BMI: 24.1 Code: 14979-6 Heart Rate 1: 92 bpm Height: 5'3" Respiratory Rate: 22 bpm Temperature: 37 .1 (C) / 98.8 (F) Weight: 136 lbs 12/26/2015 Blood Pressure 1: 142/78 Code: 8480-6 BMI: 24.6 Code: 14522-3 Heart Rate 1: 78 bpm Height: 5'3" Respiratory Rate: 20 bpm Temperature: 36 .7 (C) / 98.1 (F) Weight: 139 lbs 12/03/2015 Blood Pressure 1: 126/60 Code: 8480-6 BMI: 24.6 Code: 13308-3 Heart Rate 1: 100 bpm Height: 5'3" Respiratory Rate: 28 bpm Temperature: 37 .6 (C) / 99.6 (F) Weight: 139 lbs 09/10/2015 Blood Pressure 1: 124/64 Code: 8480-6 BMI: 23.7 Code: 73308-2 Heart Rate 1: 88 bpm Height: 5'3" Respiratory Rate: 24 bpm SpO2: 95% Tempera ture: 36.4 (C) / 97.6 (F) Weight: 134 lbs 08/06/2015 Blood Pressure 1: 114/76 Code: 8480-6 BMI: 23.2 Code: 38312-5 Heart Rate 1: 88 bpm Height: 5'3" Respiratory Rate: 22 bpm Temperature: 36 .6 (C) / 97.9 (F) Weight: 131 lbs 07/18/2015 Blood Pressure 1: 144/78 Code: 8480-6 BMI: 23.7 Code: 99065-1 Heart Rate 1: 84 bpm Height: 5'3" Respiratory Rate: 20 bpm Temperature: 37 .2 (C) / 99.0 (F) Weight: 134 lbs 04/10/2015 Blood Pressure 1: 110/64 Code: 8480-6 Heart Rate 1: 80 bpm Height: Respiratory Rate: 20 bpm Temperature: 37.1 (C) / 98.8 (F) Weight: 03/05/2015 Blood Pressure 1: 136/80 Code: 8480-6 BMI: 23.9 Code: 42572-3 Heart Rate 1: 76 bpm Height: 5'3" Respiratory Rate: 24 bpm Temperature: 37 .0 (C) / 98.6 (F) Weight: 135 lbs 01/30/2015 Blood Pressure 1: 142/80 Code: 8480-6 BMI: 23.0 Code: 77828-5 Heart Rate 1: 96 bpm Height: 5'3" Respiratory Rate: 22 bpm Temperature: 36 .2 (C) / 97.2 (F) Weight: 130 lbs 01/02/2015 Blood Pressure 1: 124/70 Code: 8480-6 BMI: 23.4 Code: 29489-0 Heart Rate 1: 84 bpm Height: 5'3" Respiratory Rate: 24 bpm SpO2: 95% Tempera ture: 36.9 (C) / 98.5 (F) Weight: 132 lbs 10/03/2014 Blood Pressure 1: 106/68 Code: 8480-6 BMI: 22.5 Code: 87220-9 Heart Rate 1: 88 bpm Height: 5'3" Respiratory Rate: 24 bpm Temperature: 37 .0 (C) / 98.6 (F) Weight: 127 lbs 08/27/2014 Blood Pressure 1: 124/68 Code: 8480-6 BMI: 21.1 Code: 53037-2 Heart Rate 1: 88 bpm Height: 5'3" [...] 1: 120/70 Code: 8480-6 BMI: 19.2 Code: 85562-4 Heart Rate 1: 70 bpm Height: 5'4" Respiratory Rate: 20 bpm Temperature: 36 .9 (C) / 98.4 (F) Weight: 112 lbs 06/28/2013 Blood Pressure 1: 102/68 Code: 8480-6 BMI: 19.6 Code: 05258-0 Heart Rate 1: 76 bpm Height: 5'4" Respiratory Rate: 20 bpm Temperature: 36 .8 (C) / 98.2 (F) Weight: 114 lbs 05/31/2013 Blood Pressure 1: 106/70 Code: 8480-6 BMI: 18.9 Code: 02143-7 Heart Rate 1: 100 bpm Height: 5'4" Respiratory Rate: 20 bpm Temperature: 36 .4 (C) / 97.6 (F) Weight: 110 lbs 05/03/2013 Blood Pressure 1: 126/70 Code: 8480-6 BMI: 19.1 Code: 48844-6 Heart Rate 1: 88 bpm Height: 5'4" Respiratory Rate: 20 bpm Temperature: 37 .1 (C) / 98.8 (F) Weight: 111 lbs 04/25/2013 Blood Pressure 1: 114/68 Code: 8480-6 BMI: 19.4 Code: 22650-1 Heart Rate 1: 92 bpm Height: 5'4" Respiratory Rate: 24 bpm SpO2: 96% Tempera ture: 37.7 (C) / 99.8 (F) Weight: 113 lbs 03/08/2013 Blood Pressure 1: 9468 Code: 8480-6 BMI: 21.3 C ode: 16518-5 Heart Rate 1: 88 bpm Height: 5'4" Respiratory Rate: 24 bpm Temperature: 37 .0 (C) / 98.6 (F) Weight: 124 lbs 02/07/2013 Blood Pressure 1: 106/64 Code: 8480-6 BMI: 21.8 Code: 46622-1 Heart Rate 1: 84 bpm Height: 5'4" Respiratory Rate: 22 bpm Temperature: 36 .8 (C) / 98.2 (F) Weight: 127 lbs 01/10/2013 Blood Pressure 1: 122/68 Code: 8480-6 BMI: 21.6 Code: 89081-1 Heart Rate 1: 94 bpm Height: 5'4" SpO2: 94% Temperature: 36.7 (C) / 98.1 (F) Weight: 126 lbs 09/28/2012 Blood Pressure 1: 124/78 Code: 8480-6 BMI: 24.9 Code: 13333-5 Heart Rate 1: 92 bpm Height: 5'4" Respiratory Rate: 20 bpm Temperature: 36 .7 (C) / 98.1 (F) Weight: 145 lbs 06/28/2012 Blood Pressure 1: 134/80 Code: 8480-6 BMI: 24.9 Code: 19400-0 Heart Rate 1: 76 bpm Height: 5'4" Respiratory Rate: 20 bpm Temperature: 36 .8 (C) / 98.2 (F) Weight: 145 lbs 05/03/2012 Blood Pressure 1: 108/62 Code: 8480-6 BMI: 25.6 Code: 56889-0 Heart Rate 1: 88 bpm Height: 5'4" Temperature: 36.2 (C) / 97.2 (F) Weight: 149 lbs 03/01/2012 Blood Pressure 1: 124/66 Code: 8480-6 BMI: 25.1 Code: 31171-0 Heart Rate 1: 76 bpm Height: 5'4" Respiratory Rate: 20 bpm Temperature: 36 .6 (C) / 97.9 (F) Weight: 146 lbs 01/26/2012 Blood Pressure 1: 118/82 Code: 8480-6 BMI: 25.1 Code: 98211-2 Heart Rate 1: 74 bpm Height: 5'4" Temperature: 36.8 (C) / 98.2 (F) Weight: 146 lbs 11/03/2011 Blood Pressure 1: 126/80 Code: 8480-6 BMI: 27.3 Code: 40902-1 Heart Rate 1: 72 bpm Height: 5'4" [...] prozac Encounters Encounter Performer Location Codes Date ([id number]) OFFICE/OUTPATIENT VISIT EST Diagnosis: Chronic pain syndrome[ICD10: G89.4] Diagnosis: Lumbar degenerative disc disease[ICD10: M51.36] Diagnosis: Muscle spasm[ICD10: M62.838] Vika RENTERIA [facility] CPT-4: 53916 10/30/2019 ([id number]) OFFICE/OUTPATIENT VISIT EST Diagnosis: Chronic pain syndrome[ICD10: G89.4] [facility] CPT-4: 50348 10/25/2019 ([id number]) OFFICE/OUTPATIENT VISIT EST Diagnosis: Epigastric pain[ICD10: R10.13] Diagnosis: Nausea[ICD10: R11.0] Diagnosis: Chronic obstructive pulmonary disease, unspecified[ICD10: J44.9] Vika RENTERIA [facility] CPT-4: 49645 07/26/2019 ([id number]) OFFICE/OUTPATIENT VISIT EST Diagnosis: Chronic obstructive pulmonary disease with (acute) exacerbation[ICD10: J44.1] Diagnosis: Chronic respiratory failure with hypoxia[ICD10: J96.11] Diagnosis: Other fatigue[ICD10: R53.83] Diagnosis: Edema, unspecified[ICD10: R60.9] Vika RENTERIA [employer] [facility] CPT-4: 94646 07/19/2019 ([id number]) OFFICE/OUTPATIENT VISIT EST Diagnosis: Chronic obstructive pulmonary disease with acute lower respiratory infection[ICD10: J44.0] Vika RENTERIA [employer] [facility] CPT-4: 78114 07/10/2019 ([id number]) OFFICE/OUTPATIENT VISIT EST Diagnosis: Type 2 diabetes mellitus with hyperglycemia[ICD10: E11.65] Diagnosis: Other infective otitis externa, left ear[ICD10: H60.392] Vika RENTERIA [employer] [facility] CPT-4: 73657 06/05/2019 ([id number]) OFFICE/OUTPATIENT VISIT EST Diagnosis: Chronic obstructive pulmonary disease with (acute) exacerbation[ICD10: J44.1] Diagnosis: Type 2 diabetes mellitus with hyperglycemia[ICD10: E11.65] Vika RENTERIA [employer] [facility] CPT-4: 51525 05/03/2019 ([id number]) OFFICE/OUTPATIENT VISIT EST Diagnosis: Type 2 diabetes mellitus with hyperglycemia[ICD10: E11.65] Diagnosis: Abnormal weight gain[ICD10: R63.5] Diagnosis: Chronic obstructive pulmonary disease with acute lower respiratory infection[ICD10: J44.0] Vika RENTERIA [employer] [facility] CPT-4: 04208 04/11/2019 ([id number]) OFFICE/OUTPATIENT VISIT EST Diagnosis: Hypothyroidism, unspecified[ICD10: E03.9] Diagnosis: Abnormal weight gain[ICD10: R63.5] Diagnosis: Other fatigue[ICD10: R53.83] Vika RENTERIA [employer] [facility] CPT-4: 23351 03/16/2019 ([id number]) OFFICE/OUTPATIENT VISIT EST Diagnosis: Abnormal weight gain[ICD10: R63.5] Diagnosis: Chronic obstructive pulmonary disease, unspecified[ICD10: J44.9] Diagnosis: Other chronic pain[ICD10: G89.29] Vika RENTERIA [facility] CPT-4: 52516 02/13/2019 ([id number]) OFFICE/OUTPATIENT VISIT EST Diagnosis: Chronic pain syndrome[ICD10: G89.4] Diagnosis: Edema, unspecified[ICD10: R60.9] Diagnosis: Major depressive disorder, 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] Diagnosis: Other fatigue[ICD10: R53.83] Vika RENTERIA [facility] CPT-4: 73755 01/25/2019 ([id number]) OFFICE/OUTPATIENT VISIT EST Diagnosis: Localized edema[ICD10: R60.0] Diagnosis: Other forms of dyspnea[ICD10: R06.09] Diagnosis: Hypothyroidism, unspecified[ICD10: E03.9] Vika RENTERIA [facility] CPT-4: 92341 01/03/2019 ([id number]) OFFICE/OUTPATIENT VISIT EST Diagnosis: Abnormal weight gain[ICD10: R63.5] Diagnosis: Localized edema[ICD10: R60.0] Diagnosis: Chronic pain syndrome[ICD10: G89.4] Vika RENTERIA DO [facility] CPT-4: 72100 11/21/2018 ([id number]) OFFICE/OUTPATIENT VISIT EST Diagnosis: Localized edema[ICD10: R60.0] Vika RENTERIA DO [facility] CPT-4: 88006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
--- OUTSIDE RECORDS SUMMARY | 2020-04-24 23:49 | XMS REPORT | CCD ---
Author Author Yana Renteria D.O. Organization [facility] Address [address] [place] [address] Phone Care Team Providers Care Rehab Aid Name Role Phone Vika Renteria D.O., PP Unavailable CCM Unavailable Summary Purpose Interface Exchange Insurance Providers Payer name Policy type / Coverage type Covered green party ID Effective Begin Date Effective End Date [employer] [facility] [place] Medicaid [id number] 2018 U nknown Family History Family History data not found Social History Social History Element Codes Description Effective Dates Marital status Unknown 06/28/[address]: 49947856 Currently smokes tobacco 05/2013 Allergies, Adverse Reactions, [...] MS Contin 100 mg tablet,extended release RxNorm: 593308 1 Table t(s) Oral QD 10/30/2019 11/29/2019 Active ferrous sulfate 325 mg (65 mg iron) tablet RxNorm: 159310 1 Tab let(s) Oral QD 10/30/2019 No Stop Date Active Relistor 150 mg tablet RxNorm: 9451958 TAKE THREE TABLETS BY BENOIT TH DAILY 10/25/2019 No Stop Date Active oxycodone 15 mg tablet RxNorm: 6266149 1 Tablet(s) Oral four times a day as needed for pain 10/25/2019 10/25/2019 Inactive pantoprazole 40 mg tablet,delayed release RxNorm: 124827 1 Tabl et(s) Oral QD 10/25/2019 No Stop Date Active metformin 500 mg tablet RxNorm: 067663 1 Tablet(s) Oral QD 10/25/20 19 No Stop Date Active levothyroxine 25 mcg tablet RxNorm: 192236 1 Tablet(s) Oral QAM 02/201912/23/2019 Active Minipress 2 mg capsule RxNorm: 505748 1 Capsule(s) Oral QAM and 3 at bedtime 10/25/2019 No Stop Date Active Lancets, Super Thin RxNorm: 1 Unit Dose Miscellaneous QD 9 11/27/2020 Active Cymbalta 60 mg capsule,delayed release RxNorm: 379048 1 Capsule (s) Oral QAM 10/25/2019 No Stop Date Active Cymbalta 30 mg capsule,delayed release RxNorm: 220097 1 Capsule (s) Oral QAM 10/25/2019 No Stop Date Active levothyroxine 25 mcg tablet RxNorm: 575496 1 Tablet(s) Oral QAM 02/201910/24/2019 Inactive MS Contin 100 mg tablet,extended release RxNorm: 054804 1 Tablet(s) Oral two times a day replaces fentanyl 10/25/2019 10/25/2019 Inactive Premarin 0.45 mg tablet RxNorm: 017349 TAKE ONE TABLET BY MOUTH DAILY 10/24/2019 No Stop Date Active Duragesic 100 mcg/hr transdermal patch RxNorm: 980047 2 Application TD Q48H for pain 10/18/2019 10/24/2019 Inactive gabapentin 300 mg capsule RxNorm: 952120 TAKE ONE CAPSULE BY MO UTH TWICE A DAY 10/16/2019 No Stop Date Active cyclobenzaprine 10 mg tablet RxNorm: 717916 TAKE ONE TA BLET BY MOUTH THREE TIMES A DAY NEEDED 09/27/2019 No Stop Date Active ProAir HFA 90 mcg/actuation aerosol inhaler RxNorm: 407693 INHALE ONE PUFF BY MOUTH EVERY 4 HOURS FOR WHEEZING OR FOR SHORTNESS OF BREATH 09/25/2019 No Stop Date Active furosemide 40 mg tablet RxNorm: 402836 1 Tablet(s) Oral QAM as needed 09/25/2019 09/25/2019 Inactive Relistor 150 mg tablet RxNorm: 5691854 TAKE THREE TABLETS BY BENOIT TH DAILY 09/25/2019 10/24/2019 Inactive oxycodone 15 mg tablet RxNorm: 9067707 1 Tablet(s) PO QID as nee ded for pain 09/21/2019 10/24/2019 Inactive Duragesic 100 mcg/hr transdermal patch RxNorm: 609038 2 Application TD Q48H for pain 09/19/2019 10/17/2019 Inactive Daliresp 500 mcg tablet RxNorm: 7495400 1 Tablet(s) Oral QD 019 03/08/2020 Active potassium chloride ER 20 mEq tablet,extended release RxNorm: 178659 TAKE ONE TABLET BY MOUTH DAILY 07/25/2019 01/20/2020 Active Relistor 150 mg tablet RxNorm: 2569301 TAKE THREE TABLETS BY BENOIT TH DAILY 07/25/2019 07/30/2019 Inactive cyclobenzaprine 10 mg tablet RxNorm: 178258 TAKE ONE TA BLET BY MOUTH THREE TIMES A DAY NEEDED 07/25/2019 09/22/2019 Inactive fluoxetine 40 mg capsule RxNorm: 703337 TAKE ONE CAPSULE BY BENOIT TH EVERY MORNING 07/11/2019 10/24/2019 Inactive Medrol (Aníbal) 4 mg tablets in a dose pack RxNorm: 648303 6 Tablet(s) PO QD --then as directed 07/10/2019 07/15/2019 Inactive omeprazole 40 mg capsule,delayed release RxNorm: 798632 1 Capsule(s) PO QD for stomach TAKE ONE CAPSULE BY MOUTH DAILY 07/10/2019 10/24/2019 Inactive Augmentin 875 mg-125 mg tablet RxNorm: 027648 1 Tablet(s) PO BID 07/16/2019 Inactive Trulicity 0.75 mg/0.5 mL subcutaneous pen injector RxNorm: 1 847973 0.75 Milliliter(s) SQ weekly 07/05/2019 10/24/2019 Inactive Compazine 10 mg tablet RxNorm: 724083 TAKE ONE TABLET B Y MOUTH FOUR TIMES A DAY NEEDED FOR NAUSEA 06/20/2019 07/19/2019 Inactive ProAir HFA 90 mcg/actuation aerosol inhaler RxNorm: 812615 INHALE ONE PUFF BY MOUTH EVERY 4 HOURS FOR WHEEZING OR FOR SHORTNESS OF BREATH 06/20/2019 06/23/2019 Inactive Daliresp 500 mcg tablet RxNorm: 1048118 TAKE ONE TABLET BY MOUTH DAILY 06/12/2019 09/10/2019 Inactive lveubhtx-jfyrrrhmz-zrmvdunou 3.5 mg/mL-10,000 unit/mL- 1 % ear solution RxNorm: 569779 4 Drop(s) otic (ear) TID to left ear 06/05/2019 10/24/2019 Inac tive furosemide 40 mg tablet RxNorm: 408531 TAKE ONE TABLET BY MOUTH EVERY MORNING 05/26/2019 07/09/2019 Inactive Duragesic 100 mcg/hr transdermal patch RxNorm: 060357 2 Application TD Q48H for pain 05/16/2019 06/14/2019 Inactive oxycodone 15 mg tablet RxNorm: 4099454 1 Tablet(s) PO QID as nee ded for pain 05/10/2019 09/20/2019 Inactive doxycycline hyclate 100 mg capsule RxNorm: 2948325 1 Capsule(s) PO BID 05/03/2019 05/12/2019 Inactive prednisone 20 mg tablet RxNorm: 594613 1 Tablet(s) PO T ID for 3 days then 1 po BID for 3 days then one daily for 3 days 05/03/2019 07/11/2019 Inactiv e Ozempic 0.25 mg or 0.5 mg (2 mg/1.5 mL) subcutaneous p en injector RxNorm: 2100204 0.5 Milligram(s) SQ QW 05/03/2019 07/09/2019 Inactive fluconazole 100 mg tablet RxNorm: 633520 1 Tablet(s) PO QD 05/03/2005/07/2019 Inactive Premarin 0.45 mg tablet RxNorm: 974011 TAKE ONE TABLET BY MOUTH DAILY 05/03/2019 10/23/2019 Inactive potassium chloride ER 20 mEq tablet,extended release RxNorm: 481242 1 Tablet(s) PO QD 04/27/2019 07/25/2019 Inactive potassium chloride ER 20 mEq tablet,extended release RxNorm: 698533 1 Tablet(s) PO QD 04/25/2019 04/26/2019 Inactive Compazine 10 mg tablet RxNorm: 542397 1 Tablet(s) PO QID as nee ded for nausea 04/25/2019 05/04/2019 Inactive ProAir HFA 90 mcg/actuation aerosol inhaler RxNorm: 336336 INHALE ONE PUFF BY MOUTH EVERY 4 HOURS FOR WHEEZING OR FOR SHORTNESS OF BREATH 04/12/2019 06/10/2019 Inactive Medrol (Aníbal) 4 mg tablets in a dose pack RxNorm: 995079 6 Tablet(s) PO QD --then as directed 04/11/2019 04/16/2019 Inactive Symbicort 160 mcg-4.5 mcg/actuation HFA aerosol inhaler RxNo rm: 6992417 2 Puff(s) INH BID 04/10/2019 10/06/2019 Inactive levothyroxine 50 mcg tablet RxNorm: 123920 1 Tablet(s) PO QD 201810/24/2019 Inactive gabapentin 300 mg capsule RxNorm: 214336 1 Capsule(s) PO BID 201810/02/2019 Inactive Symbicort 160 mcg-4.5 mcg/actuation HFA aerosol inhaler RxNo rm: 0398048 2 Puff(s) INH BID 04/06/2019 04/09/2019 Inactive oxycodone 15 mg tablet RxNorm: 0149991 1 Tablet(s) PO QID as nee ded for pain 04/05/2019 05/09/2019 Inactive levothyroxine 50 mcg tablet RxNorm: 196551 1 Tablet(s) PO QD 201804/09/2019 Inactive furosemide 40 mg tablet RxNorm: 775873 TAKE ONE TABLET BY MOUTH EVERY MORNING 03/21/2019 04/19/2019 Inactive levothyroxine 50 mcg tablet RxNorm: 819680 TAKE ONE TABLET BY M OUTH DAILY 03/21/2019 03/27/2019 Inactive Duragesic 100 mcg/hr transdermal patch RxNorm: 193701 2 Application TD Q48H for pain 03/13/2019 04/11/2019 Inactive oxycodone 15 mg tablet RxNorm: 2873323 1 Tablet(s) PO QID as nee ded for pain 03/06/2019 04/04/2019 Inactive Relistor 150 mg tablet RxNorm: 3227325 3 Tablet(s) PO QD 02/28/2019 0 05/28/2019 Inactive cyclobenzaprine 10 mg tablet RxNorm: 144146 1 Tablet(s) PO TID as needed 02/28/2019 05/28/2019 Inactive phentermine 37.5 mg tablet RxNorm: 702515 1 Tablet(s) PO QAM 201803/15/2019 Inactive Duragesic 100 mcg/hr transdermal patch RxNorm: 254112 2 Application TD Q48H for pain 02/09/2019 03/10/2019 Inactive Daliresp 500 mcg tablet RxNorm: 6999296 TAKE ONE TABLET BY MOUTH DAILY 01/31/2019 05/30/2019 Inactive Premarin 0.45 mg tablet RxNorm: 764233 1 Tablet(s) PO QD 01/31/2019 0 04/30/2019 Inactive fluoxetine 40 mg capsule RxNorm: 151270 Capsule(s) TAKE ONE CAPSULE BY MOUTH EVERY MORNING 01/31/2019 04/30/2019 Inactive levothyroxine 50 mcg tablet RxNorm: 560625 1 Tablet(s) PO QD 201804/10/2019 Inactive follow up in 3 weeks levothyroxine 50 mcg tablet RxNorm: 145086 1 Tablet(s) PO QD 201801/25/2019 Inactive follow up in 3 weeks potassium chloride ER 20 mEq tablet,extended release RxNorm: 832785 2 Tablet(s) PO BID 01/23/2019 02/14/2019 Inactive Synthroid 50 mcg tablet RxNorm: 303571 TAKE ONE TABLET BY MOUTH DAILY 01/16/2019 10/24/2019 Inactive potassium chloride ER 20 mEq tablet,extended release RxNorm: 583227 2 Tablet(s) PO BID 01/04/2019 01/22/2019 Inactive ProAir HFA 90 mcg/actuation aerosol inhaler RxNorm: 630091 INHALE ONE PUFF BY MOUTH EVERY 4 HOURS FOR WHEEZING OR SHORTNESS OF BREATH 01/04/201902/20 Inactive Request already responded to by other me ans (e.g. phone or fax) ProAir HFA 90 mcg/actuation aerosol inhaler RxNorm: 2688240 INHALE ONE PUFF BY MOUTH EVERY 4 HOURS FOR WHEEZING OR SHORTNESS OF BREATH 01/02/201912/23 Inactive gabapentin 300 mg capsule RxNorm: 351175 TAKE ONE CAPSULE BY MO UTH TWICE A DAY 12/30/2018 04/06/2019 Inactive furosemide 40 mg tablet RxNorm: 774938 1 Tablet(s) PO QAM 12/26/2018 02/23/2019 Inactive Compazine 10 mg tablet RxNorm: 490582 1 Tablet(s) PO QID as nee ded for nausea 12/07/2018 12/16/2018 Inactive metolazone 2.5 mg tablet RxNorm: 547671 TAKE ONE TABLET BY MOUT H EVERY MORNING 12/05/2018 01/03/2019 Inactive metformin ER 500 mg tablet,extended release 24 hr RxNorm: 86 0975 TAKE ONE TABLET BY MOUTH DAILY 12/05/2018 04/10/2019 Inactive Synthroid 50 mcg tablet RxNorm: 576838 1 Tablet(s) PO QD 11/25/2018 0 01/03/2019 Inactive DC any other synthroid strengths. Should be 50mcg only cyclobenzaprine 10 mg tablet RxNorm: 813362 TAKE ONE TA BLET BY MOUTH THREE TIMES A DAY NEEDED 11/09/2018 02/06/2019 Inactive metolazone 2.5 mg tablet RxNorm: 116449 1 Tablet(s) PO QAM repl aces 5mg dose 11/02/2018 12/01/2018 Inactive potassium chloride ER 20 mEq tablet,extended release RxNorm: 786235 2 Tablet(s) PO QD 2018 01/02/2019 Inactive Compazine 10 mg tablet RxNorm: 019054 1 Tablet(s) PO QID as nee ded for nausea 10/18/2018 12/07/2018 Inactive furosemide 40 mg tablet RxNorm: 679806 1 Tablet(s) PO QAM 10/12/2018 12/10/2018 Inactive ondansetron 8 mg disintegrating tablet RxNorm: 593891 1 Tablet(s) PO Q6H as needed 10/11/2018 10/17/2018 Inactive scopolamine 1 mg over 3 days transdermal patch RxNorm: 38339 2 1 Application TD behind ear. Take off after three days 10/11/2018 01/02/2019 Inactive furosemide 40 mg tablet RxNorm: 873642 1 Tablet(s) PO QAM 10/10/2018 12/26/2018 Inactive metolazone 5 mg tablet RxNorm: 471276 1 Tablet(s) PO QAM 10/06/2018 1 01/03/2018 Inactive metolazone 5 mg tablet RxNorm: 082934 1 Tablet(s) PO QAM 10/06/2018 1 12/05/2017 Inactive Xtampza ER 36 mg capsule sprinkle RxNorm: 3882674 1 Capsule(s) P O BID 10/05/2018 01/02/2019 Inactive Xtampza ER 36 mg capsule sprinkle RxNorm: 2319865 1 Capsule(s) P O BID 10/05/2018 02/12/2019 Inactive omeprazole 40 mg capsule,delayed release RxNorm: 065918 TAKE ONE CAPSULE BY MOUTH DAILY 10/03/2018 12/31/2018 Inactive Duragesic 100 mcg/hr transdermal patch RxNorm: 784924 2 Application TD Q48H for pain 09/30/2018 10/29/2018 Inactive Synthroid 50 mcg tablet RxNorm: 840870 1 Tablet(s) PO QD 09/29/2018 0 11/25/2018 Inactive DC any other synthroid strengths. Should be 50mcg only Synthroid 50 mcg tablet RxNorm: 406472 1 Tablet(s) PO QD 09/29/2018 1 11/28/2017 Inactive furosemide 40 mg tablet RxNorm: 130088 2 Tablet(s) PO Q AM for 1 week then every other day for 2 weeks 09/27/2018 10/12/2018 Inactive fluoxetine 40 mg capsule RxNorm: 676619 2 Capsule(s) PO QD 09/27/20 18 10/17/2018 Inactive potassium chloride ER 20 mEq tablet,extended release RxNorm: 018773 2 Tablet(s) PO QD for 1 week then every other day for 2 weeks 09/27/2018 2018 Inactive ProAir HFA 90 mcg/actuation aerosol inhaler RxNorm: 9031630 INHALE ONE PUFF BY MOUTH EVERY 4 HOURS FOR WHEEZING OR SHORTNESS OF BREATH 09/26/201811/23 Inactive Synthroid 75 mcg tablet RxNorm: 591849 1 Tablet(s) PO QD 09/09/2018 1 Inactive Synthroid 75 mcg tablet RxNorm: 817040 1 Tablet(s) PO QD 09/09/2018 1 11/28/2017 Inactive furosemide 40 mg tablet RxNorm: 567622 1 Tablet(s) PO QD 09/06/2018 1 Inactive potassium chloride ER 20 mEq tablet,extended release RxNorm: 748114 1 Tablet(s) PO QD 09/06/2018 09/19/2018 Inactive Duragesic 100 mcg/hr transdermal patch RxNorm: 549069 2 Application TD Q48H for pain 08/30/2018 09/28/2018 Inactive gabapentin 300 mg capsule RxNorm: 469096 TAKE ONE CAPSULE BY [facility] TWICE A DAY 08/23/2018 12/20/2018 Inactive Daliresp 500 mcg tablet RxNorm: 7258160 TAKE ONE TABLET BY MOUTH DAILY 08/23/2018 01/19/2019 Inactive Pulmicort 1 mg/2 mL suspension for nebulization RxNorm: 6168 19 USE ONE VIAL VIA NEBULIZER BY MOUTH TWICE A DAY 08/23/2018 07/11/2019 Inactive Synthroid 88 mcg tablet RxNorm: 052136 1 Tablet(s) PO QD 08/19/2018 Inactive Medrol (Aníbal) 4 mg tablets in a dose pack RxNorm: 571246 Tablet(s) PO take as directed 08/16/2018 09/05/2018 Inactive Relistor 150 mg tablet RxNorm: 2756514 3 Tablet(s) PO QD 08/16/2018 1 Inactive Zithromax Z-Aníbal 250 mg tablet RxNorm: 125353 Tablet(s) PO take as directed 08/16/2018 09/05/2018 Inactive cyclobenzaprine 10 mg tablet RxNorm: 364576 1 Tablet(s) PO TID as needed 08/16/2018 11/08/2018 Inactive Synthroid 88 mcg tablet RxNorm: 066993 1 Tablet(s) PO Q D NEEDS UPDATED LABS BEFORE FURTHER REFILLS 08/08/2018 08/19/2018 Inactive Premarin 0.45 mg tablet RxNorm: 273654 1 Tablet(s) PO QD 08/03/2018 0 01/31/2019 Inactive fluoxetine 20 mg capsule RxNorm: 037993 TAKE ONE CAPSULE BY BENOIT TH DAILY 08/03/2018 09/26/2018 Inactive Xtampza ER 36 mg capsule sprinkle RxNorm: 3407731 1 Capsule(s) P O BID 08/03/2018 09/01/2018 Inactive metformin ER 500 mg tablet,extended release 24 hr RxNorm: 86 0975 1 Tablet(s) PO QD 08/03/2018 10/31/2018 Inactive Symbicort 160 mcg-4.5 mcg/actuation HFA aerosol inhaler RxNo rm: 7698900 2 Puff(s) INH BID 08/03/2018 01/29/2019 Inactive Duragesic 100 mcg/hr transdermal patch RxNorm: 507940 2 Application TD Q48H for pain 07/29/2018 08/27/2018 Inactive ProAir HFA 90 mcg/actuation aerosol inhaler RxNorm: 523818 INHALE TWO PUFFS BY MOUTH EVERY 4 HOURS FOR WHEEZING OR SHORTNESS OF BREATH 07/27/201802/2018 Inactive Relistor 150 mg tablet RxNorm: 7661845 3 Tablet(s) PO QD 07/20/2018 0 08/15/2018 Inactive metformin ER 500 mg tablet,extended release 24 hr RxNorm: 86 0975 TAKE ONE TABLET BY MOUTH DAILY 07/08/2018 08/02/2018 Inactive fluoxetine 40 mg capsule RxNorm: 911439 TAKE ONE CAPSULE BY BENOIT TH EVERY MORNING 07/08/2018 10/05/2018 Inactive Xtampza ER 18 mg capsule sprinkle RxNorm: 5085200 1 Capsule(s) P O BID 07/08/2018 08/02/2018 Inactive Relistor 150 mg tablet RxNorm: 8265953 3 Tablet(s) PO QD 07/08/2018 0 07/12/2018 Inactive Synthroid 88 mcg tablet RxNorm: 945631 1 Tablet(s) PO Q D NEEDS UPDATED LABS BEFORE FURTHER REFILLS 06/23/2018 07/07/2018 Inactive fluoxetine 40 mg capsule RxNorm: 938379 TAKE ONE CAPSULE BY BENOIT TH EVERY MORNING 06/15/2018 09/26/2018 Inactive orphenadrine citrate ER 100 mg tablet,extended release RxNor m: 052526 TAKE ONE TABLET BY MOUTH TWICE A DAY FOR MUSCLE SPASM 06/15/2018 08/15/2018 Epsom ctive Duragesic 100 mcg/hr transdermal patch RxNorm: 720960 2 Application TD Q48H for pain 05/30/2018 06/28/2018 Inactive ProAir HFA 90 mcg/actuation aerosol inhaler RxNorm: 313246 INHALE TWO PUFFS BY MOUTH EVERY 4 HOURS FOR WHEEZING OR SHORTNESS OF BREATH 05/19/201803/2018 Inactive Chantix Continuing Month Box 1 mg tablet RxNorm: 332820 TAKE ONE TABLET BY MOUTH TWICE A DAY 05/19/2018 08/15/2018 Inactive oxycodone 10 mg tablet RxNorm: 3947777 1-2 Tablet(s) PO QID as n eeded for pain 05/19/2018 07/07/2018 Inactive gabapentin 300 mg capsule RxNorm: 471737 TAKE ONE CAPSULE BY MO [facility] TWICE A DAY 05/18/2018 07/16/2018 Inactive ProAir HFA 90 mcg/actuation aerosol inhaler RxNorm: 983906 INHALE TWO PUFFS BY MOUTH EVERY 4 HOURS FOR WHEEZING OR SHORTNESS OF BREATH 05/04/201804/23 Inactive Augmentin 500 mg-125 mg tablet RxNorm: 011680 1 Tablet(s) PO BID 05/03/2018 Inactive oxycodone 10 mg tablet RxNorm: 7692731 1-2 Tablet(s) PO QID as n eeded for pain 04/21/2018 05/18/2018 Inactive Synthroid 88 mcg tablet RxNorm: 531547 1 Tablet(s) PO QD 04/15/2018 0 08/08/2018 Inactive Symbicort 160 mcg-4.5 mcg/actuation HFA aerosol inhaler RxNo rm: 2973145 2 Puff(s) INH BID 04/15/2018 04/10/2019 Inactive Premarin 0.45 mg tablet RxNorm: 153216 1 Tablet(s) PO QD 04/15/2018 0 08/03/2018 Inactive ProAir HFA 90 mcg/actuation aerosol inhaler RxNorm: 805028 2 Puff(s) INH Q4H prn for wheezing or shortness of breath 04/15/2018 05/03/2018 Inactive metformin ER 500 mg tablet,extended release 24 hr RxNorm: 86 0975 1 Tablet(s) PO QD 04/11/2018 07/07/2018 Inactive omeprazole 40 mg capsule,delayed release RxNorm: 582209 TAKE ONE CAPSULE BY MOUTH DAILY 04/10/2018 06/08/2018 Inactive Synthroid 88 mcg tablet RxNorm: 652781 1 Tablet(s) PO QD 04/04/2018 0 04/14/2018 Inactive Synthroid 88 mcg tablet RxNorm: 980491 1 Tablet(s) PO QD 04/04/2018 0 04/03/2018 Inactive orphenadrine citrate ER 100 mg tablet,extended release RxNor m: 486999 1 Tablet(s) PO BID for muscle spasm 04/04/2018 05/03/2018 Inactive metformin ER 500 mg tablet,extended release 24 hr RxNorm: 86 0975 1 Tablet(s) PO QD NEEDS UPDATED LABS 03/31/2018 04/11/2018 Inactive doxycycline hyclate 100 mg capsule RxNorm: 5815406 1 Capsule(s) PO BID 03/31/2018 04/09/2018 Inactive prednisone 20 mg tablet RxNorm: 293043 3 Tablet(s) PO T ID for 3 days then 1 po BID for 3 days then one daily for 3 days 03/31/2018 07/06/2018 Inactiv e Chantix Continuing Month Box 1 mg tablet RxNorm: 770206 TAKE ONE TABLET BY MOUTH TWICE A DAY 03/25/2018 03/30/2018 Inactive oxycodone 10 mg tablet RxNorm: 8992545 1-2 Tablet(s) PO QID as n eeded for pain 03/21/2018 04/20/2018 Inactive Daliresp 500 mcg tablet RxNorm: 5555609 1 Tablet(s) PO QD 03/15/2018 08/22/2018 Inactive metformin ER 500 mg tablet,extended release 24 hr RxNorm: 86 0975 1 Tablet(s) PO QD NEEDS UPDATED LABS 03/14/2018 03/31/2018 Inactive nystatin 100,000 unit/mL oral suspension RxNorm: 276247 5 Chio liter(s) PO QID 03/02/2018 03/15/2018 Inactive nystatin 100,000 unit/mL oral suspension RxNorm: 633081 5 Chio liter(s) PO QID 03/02/2018 03/01/2018 Inactive oxycodone 10 mg tablet RxNorm: 1736317 1-2 Tablet(s) PO QID as n eeded for pain 02/16/2018 03/20/2018 Inactive fluoxetine 20 mg capsule RxNorm: 234144 1 Capsule(s) PO QD 02/15/20 18 08/02/2018 Inactive metformin ER 500 mg tablet,extended release 24 hr RxNorm: 86 0975 1 Tablet(s) PO QD Needs updated labs 02/14/2018 03/14/2018 Inactive cefdinir 300 mg capsule RxNorm: 572899 1 Capsule(s) PO BID 01/27/20 18 02/04/2018 Inactive orphenadrine citrate ER 100 mg tablet,extended release RxNor m: 991575 1 Tablet(s) PO BID for muscle spasm 01/26/2018 04/04/2018 Inactive gabapentin 300 mg capsule RxNorm: 119043 1 Capsule(s) PO BID 201704/17/2018 Inactive oxycodone 10 mg tablet RxNorm: 6369631 1-2 Tablet(s) PO QID as n eeded for pain 01/17/2018 02/15/2018 Inactive Duragesic 100 mcg/hr transdermal patch RxNorm: 826885 2 Application TD Q48H for pain 01/17/2018 02/15/2018 Inactive gabapentin 300 mg capsule RxNorm: 846695 TAKE ONE CAPSULE BY MO [facility] TWICE A DAY 12/20/2017 01/18/2018 Inactive fluoxetine 40 mg capsule RxNorm: 907624 TAKE ONE CAPSULE BY BENOIT TH EVERY MORNING 12/15/2017 03/14/2018 Inactive OneTouch Ultra Test strips RxNorm: TEST DAILY 11/04/2017 02/01/2018 Inactive gabapentin 300 mg capsule RxNorm: 057199 1 Capsule(s) P O TID replaces BID dosing 10/26/2017 02/22/2018 Inactive oxycodone 10 mg tablet RxNorm: 4820240 1-2 Tablet(s) PO QID as n eeded for pain 10/18/2017 01/16/2018 Inactive Duragesic 100 mcg/hr transdermal patch RxNorm: 953982 2 Application TD Q48H for pain 10/18/2017 11/16/2017 Inactive gabapentin 300 mg capsule RxNorm: 029628 1 Capsule(s) PO BID 201610/25/2017 Inactive Abilify 5 mg tablet RxNorm: 176362 1 Tablet(s) PO QAM 09/23/201702/2017 Inactive gabapentin 300 mg capsule RxNorm: 107905 1 Capsule(s) PO BID 201610/17/2017 Inactive oxycodone 10 mg tablet RxNorm: 7345776 1-2 Tablet(s) PO QID as n eeded for pain 09/15/2017 10/17/2017 Inactive Duragesic 100 mcg/hr transdermal patch RxNorm: 888522 2 Application TD Q48H for pain 09/15/2017 10/14/2017 Inactive Duragesic 100 mcg/hr transdermal patch RxNorm: 823499 2 Application TD Q48H for pain 09/15/2017 10/24/2019 Inactive oxycodone 10 mg tablet RxNorm: 8242076 1-2 Tablet(s) PO QID as n eeded for pain 09/15/2017 08/15/2018 Inactive Daliresp 500 mcg tablet RxNorm: 3785227 1 Tablet(s) PO QD 09/06/2017 03/15/2018 Inactive Ventolin HFA 90 mcg/actuation aerosol inhaler RxNorm: 774722 2 Puff(s) INH Q4H as needed 09/02/2017 05/19/2018 Inactive oxycodone 10 mg tablet RxNorm: 1687097 1-2 Tablet(s) PO QID as n eeded for pain 08/17/2017 09/14/2017 Inactive Duragesic 100 mcg/hr transdermal patch RxNorm: 879561 2 Application TD Q48H for pain 08/17/2017 09/14/2017 Inactive fluoxetine 40 mg capsule RxNorm: 241577 Capsule(s) TAKE ONE CAPSULE BY MOUTH EVERY MORNING 08/17/2017 12/14/2017 Inactive Pulmicort 1 mg/2 mL suspension for nebulization RxNorm: 6168 19 1 Unit Dose INH BID Dx: COPD (J44.9) 08/16/2017 08/22/2018 Inactive gabapentin 300 mg capsule RxNorm: 591944 1 Capsule(s) PO QHS 201610/18/2017 Inactive fluoxetine 20 mg capsule RxNorm: 816194 1 Capsule(s) PO QD 08/12/20 17 02/14/2018 Inactive Abilify 2 mg tablet RxNorm: 809348 1 Tablet(s) PO QD TA KE ONE TABLET BY MOUTH DAILY 08/12/2017 10/25/2017 Inactive metformin ER 500 mg tablet,extended release 24 hr RxNorm: 86 0975 1 Tablet(s) PO QD 08/10/2017 02/14/2018 Inactive Synthroid 112 mcg tablet RxNorm: 737546 1 Tablet(s) PO QD 08/10/2017 04/15/2018 Inactive oxycodone 10 mg tablet RxNorm: 4250204 1-2 Tablet(s) PO QID as n eeded for pain 07/19/2017 08/16/2017 Inactive Duragesic 100 mcg/hr transdermal patch RxNorm: 445333 2 Application TD Q48H for pain 07/19/2017 08/16/2017 Inactive Ventolin HFA 90 mcg/actuation aerosol inhaler RxNorm: 349993 2 Puff(s) INH Q4H as needed 07/12/2017 09/02/2017 Inactive Abilify 2 mg tablet RxNorm: 642775 1 Tablet(s) PO QD TA KE ONE TABLET BY MOUTH DAILY 07/06/2017 08/11/2017 Inactive gabapentin 800 mg tablet RxNorm: 077261 1 Tablet(s) PO TID 06/22/20 17 07/05/2017 Inactive Chantix Starting Month Box 0.5 mg (11)-1 mg (42) table ts in dose pack RxNorm: 703983 TAKE BY MOUTH INSTRUCTED - PER PACKAGE INSTRUCTIONS 06/0707/04/2017 Inactive Ventolin HFA 90 mcg/actuation aerosol inhaler RxNorm: 321805 2 Puff(s) INH Q4H as needed 05/26/2017 07/12/2017 Inactive Duragesic 100 mcg/hr transdermal patch RxNorm: 424877 2 Application TD Q48H for pain 05/19/2017 06/17/2017 Inactive oxycodone 10 mg tablet RxNorm: 8229214 1-2 Tablet(s) PO QID as n eeded for pain 05/19/2017 07/18/2017 Inactive Abilify 2 mg tablet RxNorm: 391896 TAKE ONE TABLET BY MOUTH DAILY 0 05/10/2017 07/05/2017 Inactive Synthroid 112 mcg tablet RxNorm: 099795 1 Tablet(s) PO QD 05/06/2017 08/10/2017 Inactive metformin ER 500 mg tablet,extended release 24 hr RxNorm: 86 0975 1 Tablet(s) PO QD 05/06/2017 08/10/2017 Inactive Topamax 100 mg tablet RxNorm: 489887 1 Tablet(s) PO QHS 05/06/2017 Inactive Premarin 0.45 mg tablet RxNorm: 944729 1 Tablet(s) PO QD 05/06/2017 0 04/15/2018 Inactive orphenadrine citrate ER 100 mg tablet,extended release RxNor m: 106818 1 Tablet(s) PO TID for muscle spasm--replaces methocarbamol 04/29/2017 Inactive oxycodone 10 mg tablet RxNorm: 4739317 1-2 Tablet(s) PO QID as n eeded for pain 04/21/2017 05/18/2017 Inactive Duragesic 100 mcg/hr transdermal patch RxNorm: 389178 2 Application TD Q48H for pain 04/21/2017 05/18/2017 Inactive fluoxetine 40 mg capsule RxNorm: 245119 Capsule(s) TAKE ONE CAPSULE BY MOUTH EVERY MORNING 04/20/2017 08/17/2017 Inactive Ventolin HFA 90 mcg/actuation aerosol inhaler RxNorm: 396050 2 Puff(s) INH Q4H as needed 04/05/2017 05/26/2017 Inactive Symbicort 160 mcg-4.5 mcg/actuation HFA aerosol inhaler RxNo rm: 2092409 2 Puff(s) INH BID 03/30/2017 04/15/2018 Inactive Spiriva with HandiHaler 18 mcg and inhalation capsules RxNor m: 263077 1 Capsule(s) INH QD USING HANDIHALER 03/30/2017 02/12/2019 Inactive Duragesic 100 mcg/hr transdermal patch RxNorm: 835529 2 Application TD Q48H for pain 03/18/2017 04/16/2017 Inactive oxycodone 10 mg tablet RxNorm: 4049824 1-2 Tablet(s) PO QID as n eeded for pain 03/18/2017 04/20/2017 Inactive metformin ER 500 mg tablet,extended release 24 hr RxNorm: 86 0975 Tablet(s) TAKE ONE TABLET BY MOUTH DAILY 03/01/2017 05/06/2017 Inactive Premarin 0.45 mg tablet RxNorm: 236501 Tablet(s) TAKE ONE TABLE T BY MOUTH DAILY 03/01/2017 05/06/2017 Inactive Synthroid 112 mcg tablet RxNorm: 068354 Tablet(s) TAKE ONE TABLET BY MOUTH DAILY 03/01/2017 05/06/2017 Inactive Daliresp 500 mcg tablet RxNorm: 8258647 1 Tablet(s) PO QD 03/01/2017 09/06/2017 Inactive 16.2 mg-0.1037 mg-0.0194 mg tablet RxNorm: 3676145 Tablet(s) PO PRN for gas and cramping 02/23/2017 04/28/2017 Inactive TAKE TWO TABLET S BY MOUTH THREE TIMES A DAY NEEDED FOR GAS AND CRAMPING gabapentin 800 mg tablet RxNorm: 968428 1 Tablet(s) PO TID repl aces 600mg 02/23/2017 04/28/2017 Inactive Duragesic 100 mcg/hr transdermal patch RxNorm: 977936 2 Application TD Q48H for pain 02/17/2017 03/17/2017 Inactive fluoxetine 20 mg capsule RxNorm: 356099 1 Capsule(s) PO QD 02/18/20 17 08/12/2017 Inactive oxycodone 20 mg tablet RxNorm: 7064728 1 Tablet(s) PO QID as nee ded for pain 02/17/2017 03/17/2017 Inactive Ventolin HFA 90 mcg/actuation aerosol inhaler RxNorm: 367142 INHALE TWO PUFFS BY MOUTH EVERY 4 HOURS NEEDED 02/15/2017 04/05/2017 Inactive Silvadene 1 % topical cream RxNorm: 912364 1 Application TOP BI D to burn area 02/01/2017 09/22/2017 Inactive Topamax 100 mg tablet RxNorm: 552987 TAKE ONE TABLET BY MOUTH EVERY NIGHT AT BEDTIME 01/29/2017 05/06/2017 Inactive Chantix Starting Month Box 0.5 mg (11)-1 mg (42) table ts in dose pack RxNorm: 657456 Tablet(s) PO as directed 01/29/2017 06/01/2017 Inactive Abilify 2 mg tablet RxNorm: 234418 TAKE ONE TABLET BY MOUTH DAILY 0 01/26/2017 04/25/2017 Inactive Chantix Starting Month Box 0.5 mg (11)-1 mg (42) table ts in dose pack RxNorm: 030264 Tablet(s) PO as directed 01/20/2017 01/28/2017 Inactive gabapentin 600 mg tablet RxNorm: 975089 1 Tablet(s) PO TID 01/21/20 17 02/22/2017 Inactive Chantix Continuing Month Box 1 mg tablet RxNorm: 078570 1 Table t(s) PO BID 12/31/2016 06/01/2017 Inactive Spiriva with HandiHaler 18 mcg and inhalation capsules RxNor m: 260048 INHALE THE ENTIRE CONTENTS OF 1 CAPSULE ONCE A DAY USING HANDIHALER 12/31/201607/2017 Inactive Synthroid 112 mcg tablet RxNorm: 334528 TAKE ONE TABLET BY MOUT H DAILY 12/30/2016 03/01/2017 Inactive metformin ER 500 mg tablet,extended release 24 hr RxNorm: 86 0975 TAKE ONE TABLET BY MOUTH DAILY 12/30/2016 03/01/2017 Inactive Premarin 0.45 mg tablet RxNorm: 151996 TAKE ONE TABLET BY MOUTH DAILY 12/30/2016 03/01/2017 Inactive omeprazole 40 mg capsule,delayed release RxNorm: 757662 TAKE ONE CAPSULE BY MOUTH DAILY 12/30/2016 01/25/2018 Inactive Ventolin HFA 90 mcg/actuation aerosol inhaler RxNorm: 791725 INHALE TWO PUFFS BY MOUTH EVERY 4 HOURS NEEDED 12/28/2016 02/13/2017 Inactive fluoxetine 40 mg capsule RxNorm: 471009 TAKE ONE CAPSULE BY BENOIT TH EVERY MORNING 12/15/2016 04/20/2017 Inactive Chantix Continuing Month Box 1 mg tablet RxNorm: 572915 TAKE ONE TABLET BY MOUTH TWICE A DAY 12/04/2016 12/31/2016 Inactive doxycycline hyclate 100 mg capsule RxNorm: 1531511 1 Capsule(s) PO BID 12/01/2016 12/07/2016 Inactive Levaquin 750 mg tablet RxNorm: 501548 1 Tablet(s) PO QD 12/01/2016 Inactive Abilify 2 mg tablet RxNorm: 282410 TAKE ONE TABLET BY MOUTH DAILY 0 11/25/2016 11/30/2016 Inactive Ventolin HFA 90 mcg/actuation aerosol inhaler RxNorm: 861437 INHALE TWO PUFFS BY MOUTH EVERY 4 HOURS NEEDED 11/02/2016 12/19/2016 Inactive Chantix Continuing Month Box 1 mg tablet RxNorm: 243146 Tablet(s) PO as directed 10/30/2016 12/03/2016 Inactive Symbicort 160 mcg-4.5 mcg/actuation HFA aerosol inhaler RxNo rm: 4898207 INHALE TWO PUFFS TWO TIMES A DAY 10/30/2016 03/30/2017 Inactive Abilify 2 mg tablet RxNorm: 675745 1 Tablet(s) PO QD 10/27/201611/24 Inactive amoxicillin 500 mg capsule RxNorm: 490816 1 Capsule(s) PO TID 10/1410/23/2016 Inactive amoxicillin 500 mg capsule RxNorm: 167305 1 Capsule(s) PO TID 10/1410/13/2016 Inactive Synthroid 112 mcg tablet RxNorm: 856106 TAKE ONE TABLET BY MOUT H DAILY 09/28/2016 12/29/2016 Inactive Topamax 100 mg tablet RxNorm: 780238 TAKE ONE TABLET BY MOUTH EVERY NIGHT AT BEDTIME 09/28/2016 01/28/2017 Inactive Premarin 0.45 mg tablet RxNorm: 400256 TAKE ONE TABLET BY MOUTH DAILY 09/28/2016 12/29/2016 Inactive metformin ER 500 mg tablet,extended release 24 hr RxNorm: 86 0975 TAKE ONE TABLET BY MOUTH DAILY 09/28/2016 12/29/2016 Inactive Ventolin HFA 90 mcg/actuation aerosol inhaler RxNorm: 058866 INHALE TWO PUFFS BY MOUTH EVERY 4 HOURS NEEDED 09/22/2016 10/23/2016 Inactive Pulmicort 1 mg/2 mL suspension for nebulization RxNorm: 6168 19 1 Unit Dose INH BID Dx: COPD (J44.9) 09/10/2016 08/16/2017 Inactive Pulmicort 1 mg/2 mL suspension for nebulization RxNorm: 6168 19 1 Unit Dose INH BID 09/10/2016 09/09/2016 Inactive Brovana 15 mcg/2 mL solution for nebulization RxNorm: 837010 1 Unit Dose INH BID Dx: COPD (J44.9) 09/10/2016 01/25/2018 Inactive Brovana 15 mcg/2 mL solution for nebulization RxNorm: 008594 1 Unit Dose INH BID 09/10/2016 09/09/2016 Inactive ipratropium-albuterol 0.5 mg-3 mg(2.5 mg base)/3 mL ne bulization soln RxNorm: 3187087 1 Unit Dose INH Q4H as needed Dx: COPD (J44.9) 09/10/2016 0 02/12/2019 Inactive orphenadrine citrate ER 100 mg tablet,extended release RxNor m: 268581 1 Tablet(s) PO BID for muscle spasm--replaces methocarbamol 09/09/2016 Inactive Chantix Continuing Month Box 1 mg tablet RxNorm: 728625 Tablet(s) PO as directed 09/09/2016 10/30/2016 Inactive orphenadrine citrate ER 100 mg tablet,extended release RxNor m: 321317 1 Tablet(s) PO BID for muscle spasm 09/09/2016 09/08/2016 Inactive Spiriva with HandiHaler 18 mcg and inhalation capsules RxNor m: 328033 INHALE THE ENTIRE CONTENTS OF 1 CAPSULE ONCE A DAY USING HANDIHALER 09/01/201605/2017 Inactive Daliresp 500 mcg tablet RxNorm: 5616904 1 Tablet(s) PO QD 08/27/2016 03/01/2017 Inactive prednisone 20 mg tablet RxNorm: 053480 3 Tablet(s) PO T ID for 3 days then 1 po BID for 3 days then one daily for 3 days 08/26/2016 04/28/2017 Inactiv e Wellbutrin XL 300 mg 24 hr tablet, extended release RxNorm: 637296 TAKE ONE TABLET BY MOUTH EVERY MORNING 07/29/2016 10/26/2016 Inactive gabapentin 600 mg tablet RxNorm: 487852 1 Tablet(s) PO BID 06/26/20 16 12/22/2016 Inactive fluoxetine 40 mg capsule RxNorm: 337518 TAKE ONE CAPSULE BY BENOIT TH EVERY MORNING 06/24/2016 11/20/2016 Inactive Duragesic 100 mcg/hr transdermal patch RxNorm: 133298 2 Application TD Q48H for pain 06/05/2016 07/04/2016 Inactive oxycodone 10 mg tablet RxNorm: 0495543 1-2 Tablet(s) PO QID as n eeded for pain 06/05/2016 03/17/2017 Inactive Belladonna-Phenobarbital 48 mg tablet,extended release RxNor m: 2 Tablet(s) PO TID 06/05/2016 01/19/2017 Inactive Premarin 0.45 mg tablet RxNorm: 890668 TAKE ONE TABLET BY MOUTH DAILY 05/27/2016 09/23/2016 Inactive Topamax 100 mg tablet RxNorm: 956574 TAKE ONE TABLET BY MOUTH EVERY NIGHT AT BEDTIME 05/27/2016 09/27/2016 Inactive Synthroid 112 mcg tablet RxNorm: 336911 TAKE ONE TABLET BY MOUT H DAILY 05/27/2016 09/23/2016 Inactive metformin ER 500 mg tablet,extended release 24 hr RxNorm: 86 0975 TAKE ONE TABLET BY MOUTH DAILY 05/27/2016 09/23/2016 Inactive Symbicort 160 mcg-4.5 mcg/actuation HFA aerosol inhaler RxNo rm: 4356466 INHALE TWO PUFFS TWO TIMES A DAY 05/27/2016 10/23/2016 Inactive Ventolin HFA 90 mcg/actuation aerosol inhaler RxNorm: 913504 INHALE TWO PUFFS BY MOUTH EVERY 4 HOURS NEEDED 05/21/2016 07/07/2016 Inactive omeprazole 40 mg capsule,delayed release RxNorm: 156401 1 Capsu le(s) PO QD 05/06/2016 08/03/2016 Inactive metformin ER 500 mg tablet,extended release 24 hr RxNorm: 86 0975 TAKE ONE TABLET BY MOUTH DAILY 04/23/2016 05/22/2016 Inactive methocarbamol 750 mg tablet RxNorm: 015352 2 Tablet(s) PO TID as needed for muscle spasm 04/23/2016 09/08/2016 Inactive Synthroid 112 mcg tablet RxNorm: 787924 TAKE ONE TABLET BY MOUT H DAILY 04/23/2016 05/22/2016 Inactive Spiriva with HandiHaler 18 mcg and inhalation capsules RxNor m: 463920 INHALE THE ENTIRE CONTENTS OF 1 CAPSULE ONCE A DAY USING HANDIHALER 04/09/201608/2016 Inactive Diflucan 100 mg tablet RxNorm: 266127 1 Tablet(s) PO QD 04/08/2016 Inactive doxycycline hyclate 100 mg capsule RxNorm: 3384850 1 Capsule(s) PO BID 04/08/2016 04/17/2016 Inactive doxycycline hyclate 100 mg capsule RxNorm: 3178357 1 Capsule(s) PO BID 04/08/2016 04/07/2016 Inactive Diflucan 100 mg tablet RxNorm: 886850 1 Tablet(s) PO QD 04/08/2016 Inactive ondansetron HCl 4 mg tablet RxNorm: 441529 1 Tablet(s) PO Q4H as needed for nausea and vomiting 04/08/2016 09/22/2017 Inactive gabapentin 600 mg tablet RxNorm: 256925 TAKE ONE TABLET BY MOUT H TWICE A DAY 03/24/2016 06/25/2016 Inactive Synthroid 112 mcg tablet RxNorm: 581481 TAKE ONE TABLET BY MOUT H DAILY 02/25/2016 04/22/2016 Inactive Levaquin 500 mg tablet RxNorm: 989869 1 Tablet(s) PO QD 01/23/2016 Inactive prednisone 20 mg tablet RxNorm: 379092 1 Tablet(s) PO T ID for 3 days then 1 po BID for 3 days then one daily for 3 days 01/23/2016 08/25/2016 Inactiv e [employer] Ultra Test strips RxNorm: TEST BLOOD SUGAR ONCE DAILY 250.00 01/09/2016 11/04/2017 Inactive methocarbamol 750 mg tablet RxNorm: 227052 2 Tablet(s) PO TID as needed for muscle spasm 01/09/2016 04/23/2016 Inactive lactulose 10 gram/15 mL oral solution RxNorm: 116940 [address](s) PO QD 01/09/2016 09/22/2017 Inactive TAKE 1 TABLESPOON BY MOUTH ONCE DAILY metformin ER 500 mg tablet,extended release 24 hr RxNorm: 86 0975 1 Tablet(s) PO QD 12/26/2015 04/22/2016 Inactive fluoxetine 20 mg capsule RxNorm: 916246 1 Capsule(s) PO QD 12/23/19 16 06/19/2016 Inactive Premarin 0.45 mg tablet RxNorm: 979455 TAKE ONE TABLET BY MOUTH DAILY 12/23/2015 05/20/2016 Inactive fluoxetine 40 mg capsule RxNorm: 954293 1 Capsule(s) PO QD 12/23/19 16 06/19/2016 Inactive TAKE ONE CAPSULE BY MOUTH EV JANKI MORNING azithromycin 500 mg tablet RxNorm: 440870 1 Tablet(s) PO QD 016 12/19/2015 Inactive Zofran 4 mg tablet RxNorm: 858503 1 Tablet(s) PO Q4H prn nausea /vomiting 12/13/2015 03/30/2018 Inactive azithromycin 500 mg tablet RxNorm: 431171 1 Tablet(s) PO QD 016 12/12/2015 Inactive Duragesic 100 mcg/hr transdermal patch RxNorm: 468644 2 Application TD Q48H for pain 12/09/2015 01/07/2016 Inactive oxycodone 10 mg tablet RxNorm: 0568096 1-2 Tablet(s) PO QID as n eeded for pain 12/09/2015 06/04/2016 Inactive Bactroban 2 % topical cream RxNorm: 642714 Application TOP BID 11/2208/25/2016 Inactive doxycycline hyclate 100 mg capsule RxNorm: 3017518 1 Capsule(s) PO BID 12/03/2015 12/12/2015 Inactive Topamax 100 mg tablet RxNorm: 909635 TAKE ONE TABLET BY MOUTH EVERY NIGHT AT BEDTIME 11/25/2015 05/22/2016 Inactive Symbicort 160 mcg-4.5 mcg/actuation HFA aerosol inhaler RxNo rm: 2800557 INHALE TWO PUFFS TWO TIMES A DAY 11/25/2015 05/22/2016 Inactive Synthroid 112 mcg tablet RxNorm: 402152 Tablet(s) TAKE ONE TABLET BY MOUTH DAILY 11/25/2015 02/22/2016 Inactive omeprazole 40 mg capsule,delayed release RxNorm: 427603 1 Capsu le(s) PO QD 11/12/2015 05/05/2016 Inactive oxycodone 10 mg tablet RxNorm: 1675017 1-2 Tablet(s) PO QID as n eeded for pain 11/05/2015 12/08/2015 Inactive Duragesic 100 mcg/hr transdermal patch RxNorm: 048997 2 Application TD Q48H for pain 11/05/2015 12/04/2015 Inactive omeprazole 40 mg capsule,delayed release RxNorm: 011311 1 Capsu le(s) PO QD 10/07/2015 11/11/2015 Inactive Januvia 100 mg tablet RxNorm: 016012 TAKE ONE TABLET BY MOUTH DAILY 09/11/2015 12/25/2015 Inactive Zithromax 500 mg tablet RxNorm: 041895 1 Tablet(s) PO QD 09/10/2015 1 Inactive prednisone 20 mg tablet RxNorm: 135564 1 Tablet(s) PO T ID for 3 days then 1 po BID for 3 days then one daily for 3 days 09/10/2015 08/25/2016 Inactiv e Wellbutrin XL 300 mg 24 hr tablet, extended release RxNorm: 083144 1 Tablet(s) PO QAM 09/10/2015 12/02/2015 Inactive Topamax 100 mg tablet RxNorm: 199522 TAKE ONE TABLET BY MOUTH EVERY NIGHT AT BEDTIME 09/02/2015 11/24/2015 Inactive Synthroid 112 mcg tablet RxNorm: 607561 TAKE ONE TABLET BY MOUT H DAILY 09/02/2015 11/25/2015 Inactive methocarbamol 750 mg tablet RxNorm: 612573 2 Tablet(s) PO TID as needed for muscle spasm 08/15/2015 01/09/2016 Inactive Wellbutrin XL 150 mg 24 hr tablet, extended release RxNorm: 373621 TAKE ONE TABLET BY MOUTH EVERY MORNING 08/13/2015 08/13/2015 Inactive gabapentin 600 mg tablet RxNorm: 077325 1 Tablet(s) PO BID 08/13/20 15 02/08/2016 Inactive Wellbutrin XL 300 mg 24 hr tablet, extended release RxNorm: 543032 1 Tablet(s) PO QAM 08/06/2015 09/09/2015 Inactive Wellbutrin XL 150 mg 24 hr tablet, extended release RxNorm: 348674 1 Tablet(s) PO QAM 07/18/2015 08/05/2015 Inactive prednisone 20 mg tablet RxNorm: 492586 1 Tablet(s) PO BID 07/18/2015 07/22/2015 Inactive doxycycline hyclate 100 mg tablet,delayed release RxNorm: 43 4018 1 Tablet(s) PO BID 07/18/2015 07/27/2015 Inactive pravastatin 40 mg tablet RxNorm: 778810 1 Tablet(s) PO QD NEEDS FASTING LAB 07/15/2015 07/14/2015 Inactive pravastatin 40 mg tablet RxNorm: 879816 1 Tablet(s) PO QD NEEDS FASTING LAB 07/15/2015 01/25/2018 Inactive Ventolin HFA 90 mcg/actuation aerosol inhaler RxNorm: 005032 2 Puff(s) INH Q4H 07/08/2015 07/07/2015 Inactive prn Premarin 0.45 mg tablet RxNorm: 780703 1 Tablet(s) PO QD 07/01/2015 0 12/22/2015 Inactive pravastatin 40 mg tablet RxNorm: 107500 1 Tablet(s) PO QD NEEDS FASTING LAB 06/14/2015 07/15/2015 Inactive Ventolin HFA 90 mcg/actuation aerosol inhaler RxNorm: 1262672 2 Puff(s) INH Q4H 06/06/2015 07/08/2015 Inactive prn albuterol sulfate 2.5 mg/3 mL (0.083 %) solution for n ebulization RxNorm: 070250 1 Unit Dose INH QID 05/30/2015 No Stop Date Active Duragesic 100 mcg/hr transdermal patch RxNorm: 481058 2 Application TD Q48H for pain 04/29/2015 05/28/2015 Inactive gabapentin 600 mg tablet RxNorm: 468380 1 Tablet(s) PO BID 04/11/20 15 08/13/2015 Inactive Onglyza 5 mg tablet RxNorm: 177529 1 Tablet(s) PO QD for blood suga r 04/10/2015 04/15/2015 Inactive [Brand Copay Card: RxBIN:[id number] PCN:CRISTIANA RxGRP:[id number] ID#:[id number]] methocarbamol 750 mg tablet RxNorm: 378829 2 Tablet(s) PO TID as needed for muscle spasm 03/28/2015 08/15/2015 Inactive pravastatin 40 mg tablet RxNorm: 076702 1 Tablet(s) PO QD 03/19/2015 03/18/2015 Inactive pravastatin 40 mg tablet RxNorm: 563480 1 Tablet(s) PO QD 03/19/2015 06/14/2015 Inactive lactulose 10 gram/15 mL oral solution RxNorm: 051659 [address]s) PO QD 03/07/2015 01/09/2016 Inactive TAKE 1 TABLESPOON BY MOUTH ONCE DAILY oxycodone 20 mg tablet RxNorm: 5607139 1 Tablet(s) PO QID as nee ded for pain 03/05/2015 07/08/2015 Inactive Topamax 100 mg tablet RxNorm: 677666 1 Tablet(s) PO QHS TAKE ONE TABLET BY MOUTH AT BEDTIME 02/25/2015 02/12/2019 Inactive metformin ER 500 mg tablet,extended release 24 hr RxNorm: 86 0975 1 Tablet(s) PO QD 02/11/2015 03/04/2015 Inactive take one tablet by mouth every day Daliresp 500 mcg tablet RxNorm: 2091493 1 Tablet(s) PO QD 02/11/2015 08/09/2015 Inactive Endocet 10 mg-325 mg tablet RxNorm: 1978930 1 Tablet(s) PO Q4H as needed for pain 01/23/2015 01/23/2015 Inactive gabapentin 600 mg tablet RxNorm: 293653 1 Tablet(s) PO BID 01/23/20 15 04/11/2015 Inactive methocarbamol 750 mg tablet RxNorm: 079346 2 Tablet(s) PO TID as needed for muscle spasm 01/15/2015 02/13/2015 Inactive fluoxetine 40 mg capsule RxNorm: 124406 1 Capsule(s) PO QD 01/14/20 15 12/23/2015 Inactive TAKE ONE CAPSULE BY MOUTH EV JANKI MORNING fluoxetine 20 mg capsule RxNorm: 804481 1 Capsule(s) PO QD 01/14/20 15 12/23/2015 Inactive Premarin 0.45 mg tablet RxNorm: 375001 1 Tablet(s) PO QD 01/02/2015 0 07/01/2015 Inactive Endocet 10 mg-325 mg tablet RxNorm: 0739769 1-2 Tablet(s) PO Q4H 02/12/2019 Inactive PRN PAIN Duragesic 100 mcg/hr transdermal patch RxNorm: 361053 2 Application TD Q48H for pain 12/25/2014 01/23/2015 Inactive Topamax 100 mg tablet RxNorm: 592915 1 Tablet(s) PO QHS TAKE ONE TABLET BY MOUTH AT BEDTIME 12/25/2014 02/24/2015 Inactive Tudorza Pressair 400 mcg/actuation breath activated RxNorm: 4211745 1 BID INHALE ONE PUFF INTO LUNGS TWO TIMES A DAY 12/17/2014 05/15/2015 Inactive Endocet 10 mg-325 mg tablet RxNorm: 3648185 1-2 Tablet(s) PO Q4H 12/19/2014 Inactive PRN PAIN Duragesic 100 mcg/hr transdermal patch RxNorm: 636345 2 Application TD Q48H for pain 11/20/2014 12/24/2014 Inactive Music [employer] (MM)Touch Ultra Test strips RxNorm: TEST BLOOD SUGAR ONCE DAILY 250.00 11/16/2014 01/08/2016 Inactive omeprazole 40 mg capsule,delayed release RxNorm: 754277 1 Capsu le(s) PO QD 11/13/2014 11/12/2015 Inactive metformin ER 500 mg tablet,extended release 24 hr RxNorm: 86 0975 1 Tablet(s) PO QD 11/12/2014 02/11/2015 Inactive take one tablet by mouth every day Symbicort 160 mcg-4.5 mcg/actuation HFA aerosol inhaler RxNo rm: 7933985 2 Puff(s) INH BID 11/12/2014 03/11/2015 Inactive INHALE 2 PUFFS O RALLY TWO TIMES A DAY gabapentin 800 mg tablet RxNorm: 027420 1 Tablet(s) PO QD TAKE ONE TABLET BY MOUTH ONCE A DAY 10/22/2014 01/01/2015 Inactive Endocet 10 mg-325 mg tablet RxNorm: 7035936 1-2 Tablet(s) PO Q4H 11/15/2014 Inactive PRN PAIN Duragesic 100 mcg/hr transdermal patch RxNorm: 338504 2 Application TD Q48H for pain 10/17/2014 11/19/2014 Inactive gabapentin 800 mg tablet RxNorm: 506100 1 Tablet(s) PO QD TAKE ONE TABLET BY MOUTH ONCE A DAY 10/04/2014 10/21/2014 Inactive Premarin 0.9 mg tablet RxNorm: 851210 1 Tablet(s) PO QD TAKE ONE TABLET BY MOUTH ONCE A DAY 10/04/2014 01/01/2015 Inactive Spiriva with HandiHaler 18 mcg & inhalation capsules RxNorm: 491873 1 Capsule(s) INH QD 10/03/2014 04/30/2015 Inactive Levaquin 500 mg tablet RxNorm: 262327 1 Tablet(s) PO QD 10/03/2014 Inactive prednisone 20 mg tablet RxNorm: 466461 1 Tablet(s) PO QD 10/03/2014 1 12/09/2013 Inactive Duragesic 100 mcg/hr transdermal patch RxNorm: 613278 2 Application TD Q48H for pain 09/18/2014 10/16/2014 Inactive Endocet 10 mg-325 mg tablet RxNorm: 7854906 1-2 Tablet(s) PO Q4H 10/16/2014 Inactive PRN PAIN Synthroid 112 mcg tablet RxNorm: 032231 1 Tablet(s) QD 09/10/2014 Inactive Synthroid 112 mcg tablet RxNorm: 743484 TAKE ONE TABLET BY MOUTH ONE TIME A DAY. NEEDS LABS 09/10/2014 02/06/2015 Inactive omeprazole 40 mg capsule,delayed release RxNorm: 047590 1 Capsu le(s) PO QD 09/03/2014 11/13/2014 Inactive omeprazole 40 mg capsule,delayed release RxNorm: 110485 1 Capsu le(s) PO QD 09/03/2014 09/02/2014 Inactive Spiriva with HandiHaler 18 mcg & inhalation capsules RxNorm: 572435 1 Capsule(s) INH QD 08/27/2014 10/02/2014 Inactive gabapentin 600 mg tablet RxNorm: 682851 1 Tablet(s) PO BID 08/27/20 14 10/22/2014 Inactive Endocet 10 mg-325 mg tablet RxNorm: 1432376 1-2 Tablet(s) PO Q4H 09/17/2014 Inactive PRN PAIN fentanyl 100 mcg/hr transdermal patch RxNorm: 266264 1 Unit Dos e TD QD 08/21/2014 09/19/2014 Inactive Daliresp 500 mcg tablet RxNorm: 0843736 1 Tablet(s) PO QD 08/13/2014 02/11/2015 Inactive Synthroid 112 mcg tablet RxNorm: 377259 TAKE ONE TABLET BY MOUTH ONE TIME A DAY. NEEDS LABS 08/10/2014 09/10/2014 Inactive Endocet 10 mg-325 mg tablet RxNorm: 2976255 1-2 Tablet(s) PO Q4H 08/17/2014 Inactive PRN PAIN Duragesic 100 mcg/hr transdermal patch RxNorm: 531433 2 Application TD Q48H for pain 07/19/2014 09/17/2014 Inactive fluoxetine 40 mg capsule RxNorm: 988110 1 Capsule(s) PO QD 07/17/20 14 01/14/2015 Inactive TAKE ONE CAPSULE BY MOUTH EV JANKI MORNING fluoxetine 20 mg capsule RxNorm: 415284 1 Capsule(s) PO QD 07/17/20 14 01/14/2015 Inactive Spiriva with HandiHaler 18 mcg & inhalation capsules RxNorm: 383184 1 Capsule(s) INH QD 07/17/2014 08/26/2014 Inactive INHALE CONTENTS OF 1 CAPSULE(S) WITH HANDIHALER ONCE DAILY Zofran 4 mg tablet RxNorm: 266747 1 Tablet(s) PO Q4H prn nausea 07/25/2014 Inactive Synthroid 112 mcg tablet RxNorm: 314699 1 Tablet(s) PO QD 07/09/2014 07/09/2014 Inactive methocarbamol 750 mg tablet RxNorm: 083919 2 Tablet(s) PO TID as needed for muscle spasm 07/09/2014 09/06/2014 Inactive Synthroid 112 mcg tablet RxNorm: 026764 1 Tablet(s) PO QD - nee d labs 07/09/2014 08/07/2014 Inactive Medrol (Aníbal) 4 mg tablets in a dose pack RxNorm: 366248 6 Tablet(s) PO QD --then as directed 07/03/2014 07/08/2014 Inactive Tudorza Pressair 400 mcg/actuation breath activated RxNorm: 4980732 1 Puff(s) INH BID 07/03/2014 12/17/2014 Inactive cefdinir 300 mg capsule RxNorm: 143119 1 Capsule(s) PO BID 07/03/20 14 07/12/2014 Inactive Topamax 100 mg tablet RxNorm: 159857 Tablet(s) TAKE ONE TABLET BY MOUTH AT BEDTIME 07/02/2014 02/25/2015 Inactive Duragesic 100 mcg/hr transdermal patch RxNorm: 930684 2 Application TD Q48H for pain 06/25/2014 07/18/2014 Inactive Endocet 10 mg-325 mg tablet RxNorm: 1566475 1-2 Tablet(s) PO Q4H 07/18/2014 Inactive PRN PAIN metformin ER 500 mg tablet,extended release 24 hr RxNorm: 86 0975 1 Tablet(s) PO QD Needs labs 06/18/2014 07/01/2014 Inactive take one tablet by mouth every day Duragesic 100 mcg/hr transdermal patch RxNorm: 475987 2 Application TD Q48H for pain 05/22/2014 06/24/2014 Inactive Synthroid 112 mcg tablet RxNorm: 912537 1 Tablet(s) PO QD 05/22/2014 07/09/2014 Inactive Endocet 10 mg-325 mg tablet RxNorm: 3995134 1-2 Tablet(s) PO Q4H 06/20/2014 Inactive PRN PAIN Endocet 10 mg-325 mg tablet RxNorm: 8845688 1-2 Tablet(s) PO Q4H 05/21/2014 Inactive PRN PAIN Duragesic 100 mcg/hr transdermal patch RxNorm: 124546 2 Application TD Q48H for pain 04/25/2014 05/21/2014 Inactive Daliresp 500 mcg tablet RxNorm: 6231156 1 Tablet(s) PO QD 04/24/2014 08/13/2014 Inactive Symbicort 160 mcg-4.5 mcg/actuation HFA aerosol inhaler RxNo rm: 6348578 2 Puff(s) INH BID 04/24/2014 08/21/2014 Inactive INHALE 2 PUFFS O RALLY TWO TIMES A DAY metformin ER 500 mg tablet,extended release 24 hr RxNorm: 86 0975 1 Tablet(s) PO QD 04/24/2014 11/12/2014 Inactive TAKE ONE TABLET BY MOUTH EVERY DAY [AttnRPh:Saving Apply/Adjudicate RxGRP:LDMGRP RxBIN:[id number] RxPCN:2012 PCode: ID#:[id number]] Symbicort 160 mcg-4.5 mcg/actuation HFA aerosol inhaler RxNo rm: 3015567 2 Puff(s) INH BID 04/24/2014 11/12/2014 Inactive INHALE 2 PUFFS O RALLY TWO TIMES A DAY Premarin 0.9 mg tablet RxNorm: 144165 1 Tablet(s) PO QD 04/24/2014 Inactive TAKE ONE TABLET BY MOUTH EVERY DAY metformin ER 500 mg tablet,extended release 24 hr RxNorm: 86 0975 1 Tablet(s) PO QD Needs labs 04/24/2014 06/18/2014 Inactive TAKE ONE TABLET BY MOUTH EVERY DAY [AttnRPh:Saving Apply/Adjudicate RxGRP:LDMGRP RxBIN:[id number] RxPCN:2012 PCode:01 ID#:[id number]] gabapentin 800 mg tablet RxNorm: 352900 1 Tablet(s) PO QD 04/24/2014 10/04/2014 Inactive TAKE ONE TABLET BY MOUTH EVERY DAY Topamax 100 mg tablet RxNorm: 204084 1 Tablet(s) PO QHS 04/17/2014 Inactive Topamax 100 mg tablet RxNorm: 387734 TAKE ONE TABLET BY MOUTH A T BEDTIME 04/17/2014 07/01/2014 Inactive Tudorza Pressair 400 mcg/actuation breath activated RxNorm: 9338406 1 Puff(s) INH BID 04/11/2014 07/02/2014 Inactive Duragesic 100 mcg/hr transdermal patch RxNorm: 678317 2 Application TD Q48H for pain 03/27/2014 04/24/2014 Inactive Endocet 10 mg-325 mg tablet RxNorm: 5019399 1-2 Tablet(s) PO Q4H 04/24/2014 Inactive PRN PAIN Robaxin 750 mg tablet RxNorm: 541137 2 Tablet(s) PO TID as need ed for spasm 02/23/2014 03/28/2015 Inactive Duragesic 100 mcg/hr transdermal patch RxNorm: 405409 2 Application TD Q48H for pain 02/23/2014 No Stop Date Active Endocet 10 mg-325 mg tablet RxNorm: 4006619 1-2 Tablet(s) PO Q4H 03/23/2014 Inactive PRN PAIN Synthroid 112 mcg tablet RxNorm: 128679 1 Tablet(s) PO QD TAKE ONE TABLET BY MOUTH EVERY DAY 02/15/2014 05/22/2014 Inactive Zithromax 500 mg tablet RxNorm: 323399 1 Tablet(s) PO QD 01/30/2014 0 02/05/2014 Inactive Diflucan 100 mg tablet RxNorm: 569930 1 Tablet(s) PO QD 01/30/2014 Inactive prednisone 20 mg tablet RxNorm: 926678 1 Tablet(s) PO BID 01/30/2014 02/05/2014 Inactive fluoxetine 40 mg capsule RxNorm: 216998 1 Capsule(s) PO QD 01/23/20 14 07/16/2014 Inactive TAKE ONE CAPSULE BY MOUTH EV JANKI MORNING fluoxetine 40 mg capsule RxNorm: 428297 1 Capsule(s) PO QD 01/23/20 14 07/17/2014 Inactive TAKE ONE CAPSULE BY MOUTH EV JANKI MORNING cefdinir 300 mg capsule RxNorm: 093986 1 Capsule(s) PO BID 01/16/20 14 01/29/2014 Inactive Zithromax 500 mg tablet RxNorm: 498846 1 Tablet(s) PO QD 01/16/2014 0 01/22/2014 Inactive prednisone 20 mg tablet RxNorm: 097868 1 Tablet(s) PO BID 01/16/2014 01/22/2014 Inactive Spiriva with HandiHaler 18 mcg and inhalation capsules RxNor m: 832875 1 Capsule(s) INH QD 12/18/2013 07/17/2014 Inactive INHALE CONTENT S OF 1 CAPSULE(S) WITH HANDIHALER ONCE DAILY fluoxetine 20 mg capsule RxNorm: 276535 1 Capsule(s) PO QD 12/18/19 14 06/15/2014 Inactive Spiriva with HandiHaler 18 mcg & inhalation capsules RxNorm: 489157 1 Capsule(s) INH QD 12/18/2013 06/15/2014 Inactive INHALE CONTENTS OF 1 CAPSULE(S) WITH HANDIHALER ONCE DAILY fluoxetine 20 mg capsule RxNorm: 874762 1 Capsule(s) PO QD 12/18/19 14 07/17/2014 Inactive cefdinir 300 mg capsule RxNorm: 044196 2 Capsule(s) PO QD 12/12/2013 12/21/2013 Inactive Duragesic 100 mcg/hr transdermal patch RxNorm: 042677 2 Application TD Q48H for pain 12/08/2013 12/07/2013 Inactive Topamax 100 mg tablet RxNorm: 296520 1 Tablet(s) PO QHS 12/04/2013 Inactive Endocet 10 mg-325 mg tablet RxNorm: 8884110 1-2 Tablet(s) PO Q4H 12/26/2013 Inactive PRN PAIN Robaxin 750 mg tablet RxNorm: 742598 2 Tablet(s) PO TID as need ed for spasm 11/07/2013 01/05/2014 Inactive gabapentin 800 mg tablet RxNorm: 904730 1 Tablet(s) PO QD 10/16/2013 04/24/2014 Inactive TAKE ONE TABLET BY MOUTH EVERY DAY Symbicort 160 mcg-4.5 mcg/actuation HFA aerosol inhaler RxNo rm: 2437481 2 Puff(s) INH BID 10/16/2013 04/24/2014 Inactive INHALE 2 PUFFS O RALLY TWO TIMES A DAY Premarin 0.9 mg tablet RxNorm: 604410 1 Tablet(s) PO QD 10/16/2013 Inactive TAKE ONE TABLET BY MOUTH EVERY DAY metformin ER 500 mg tablet,extended release 24 hr RxNorm: 86 0975 1 Tablet(s) PO QD 10/16/2013 04/24/2014 Inactive TAKE ONE TABLET BY MOUTH EVERY DAY Daliresp 500 mcg tablet RxNorm: 4367868 1 Tablet(s) PO QD 10/16/2013 04/24/2014 Inactive Robaxin 750 mg tablet RxNorm: 948035 2 Tablet(s) PO TID as need ed for spasm 10/10/2013 11/06/2013 Inactive Duragesic 100 mcg/hr transdermal patch RxNorm: 576920 2 Application TD Q48H for pain 10/09/2013 No Stop Date Active Soma 350 mg tablet RxNorm: 859172 1 Tablet(s) PO TID 09/27/201310/09 Inactive TAKE ONE TABLET BY MOUTH THREE TIMES A D AY lactulose 10 gram/15 mL oral solution RxNorm: 889881 [address](s) PO QD 09/13/2013 03/07/2015 Inactive TAKE 1 TABLESPOON BY MOUTH ONCE DAILY Duragesic 100 mcg/hr transdermal patch RxNorm: 067001 2 Application TD Q48H for pain 09/06/2013 No Stop Date Active Endocet 10 mg-325 mg tablet RxNorm: 6638048 1-2 Tablet(s) PO Q4H 09/27/2013 Inactive PRN PAIN lancets 28 gauge RxNorm: Miscellaneous As needed for blo od glucose sticks 08/24/2013 No Stop Date Active 16.2 mg-0.1037 mg-0.0194 mg tablet RxNorm: 5133461 Tablet(s) PO PRN for gas and cramping 08/24/2013 01/19/2017 Inactive TAKE TWO TABLET S BY MOUTH THREE TIMES A DAY NEEDED FOR GAS AND CRAMPING Topamax 100 mg tablet RxNorm: 190714 1 Tablet(s) PO QHS 07/31/2013 Inactive Diflucan 100 mg tablet RxNorm: 948214 1 Tablet(s) PO QD 07/27/2013 Inactive cefdinir 300 mg capsule RxNorm: 122719 1 Capsule(s) PO BID 07/26/20 13 08/08/2013 Inactive Daliresp 500 mcg tablet RxNorm: 7307190 1 Tablet(s) PO QD 07/25/2013 10/15/2013 Inactive fluoxetine 40 mg capsule RxNorm: 691874 1 Capsule(s) PO QD 07/25/20 13 01/22/2014 Inactive TAKE ONE CAPSULE BY MOUTH EV JANKI MORNING Senokot-S 8.6 mg-50 mg tablet RxNorm: 0433354 1 Tablet(s) PO BID 10/25/2013 Inactive doxycycline hyclate 100 mg capsule RxNorm: 1293417 1 Capsule(s) PO BID 06/28/2013 07/07/2013 Inactive prednisone 20 mg tablet RxNorm: 417261 1 Tablet(s) PO BID 06/28/2013 07/04/2013 Inactive Zofran 4 mg tablet RxNorm: 978194 1 Tablet(s) PO Q4H prn nausea 03/201307/05/2013 Inactive Spiriva with HandiHaler 18 mcg & inhalation capsules RxNorm: 621719 1 Capsule(s) INH QD 06/26/2013 12/18/2013 Inactive INHALE CONTENTS OF 1 CAPSULE(S) WITH HANDIHALER ONCE DAILY Synthroid 112 mcg tablet RxNorm: 803675 1 Tablet(s) PO QD TAKE ONE TABLET BY MOUTH EVERY DAY 06/19/2013 02/15/2014 Inactive fluoxetine 20 mg capsule RxNorm: 772308 1 Capsule(s) PO QD 06/19/20 13 12/18/2013 Inactive Ventolin HFA 90 mcg/actuation Aerosol Inhaler RxNorm: 0365765 2 Puff(s) INH Q4H 06/05/2013 No Stop Date Active prn Soma 350 mg tablet RxNorm: 345883 1 Tablet(s) PO TID 06/05/201307/04 Inactive TAKE ONE TABLET BY MOUTH THREE TIMES A D AY prednisone 20 mg tablet RxNorm: 755182 1 Tablet(s) PO QD 05/31/2013 0 06/06/2013 Inactive Topamax 100 mg tablet RxNorm: 944150 1 Tablet(s) PO QHS 05/22/2013 Inactive Levaquin 500 mg tablet RxNorm: 029580 1 Tablet(s) PO QD 05/03/2013 Inactive Diflucan 100 mg tablet RxNorm: 124080 1 Tablet(s) PO QD 05/03/2013 Inactive Daliresp 500 mcg tablet RxNorm: 7590413 1 Tablet(s) PO QD 05/01/2013 07/24/2013 Inactive Daliresp 500 mcg tablet RxNorm: 4496078 1 Tablet(s) PO QD 05/01/2013 04/30/2013 Inactive gabapentin 800 mg tablet RxNorm: 873497 1 Tablet(s) PO QD 04/10/2013 10/06/2013 Inactive TAKE ONE TABLET BY MOUTH EVERY DAY metformin ER 500 mg tablet,extended release 24 hr RxNorm: 86 0977 1 Tablet(s) PO QD 04/10/2013 10/06/2013 Inactive TAKE ONE TABLET BY MOUTH EVERY DAY Premarin 0.9 mg tablet RxNorm: 888193 1 Tablet(s) PO QD 04/10/2013 Inactive TAKE ONE TABLET BY MOUTH EVERY DAY Symbicort 160 mcg-4.5 mcg/actuation HFA aerosol inhaler RxNo rm: 0624459 2 Puff(s) INH BID 04/10/2013 10/06/2013 Inactive INHALE 2 PUFFS O RALLY TWO TIMES A DAY Synthroid 112 mcg tablet RxNorm: 327963 1 Tablet(s) PO QD TAKE ONE TABLET BY MOUTH EVERY DAY 04/10/2013 06/18/2013 Inactive Ventolin HFA 90 mcg/actuation Aerosol Inhaler RxNorm: 1713989 2 Puff(s) INH Q4H 04/10/2013 No Stop Date Active prn fentanyl 100 mcg/hr transdermal patch RxNorm: 362164 1 Unit Dos e TD QD 04/03/2013 05/02/2013 Inactive Endocet 10 mg-325 mg tablet RxNorm: 0184469 1-2 Tablet(s) PO Q4H 05/02/2013 Inactive PRN PAIN Topamax 100 mg tablet RxNorm: 057299 1 Tablet(s) PO QHS 03/13/2013 Inactive Reglan 10 mg tablet RxNorm: 384935 1 Tablet(s) PO QID b efore meals and at bedtime 03/13/2013 04/09/2015 Inactive fluoxetine 20 mg capsule RxNorm: 382076 1 Capsule(s) PO QD 02/28/20 13 05/27/2013 Inactive Ventolin HFA 90 mcg/actuation Aerosol Inhaler RxNorm: 7377017 2 Puff(s) INH Q4H 02/13/2013 No Stop Date Active prn fluoxetine 40 mg capsule RxNorm: 239117 1 Capsule(s) PO QD 01/31/20 13 07/24/2013 Inactive TAKE ONE CAPSULE BY MOUTH EV JANKI MORNING Soma 350 mg tablet RxNorm: 316401 1 Tablet(s) PO TID 01/20/201302/18 Inactive TAKE ONE TABLET BY MOUTH THREE TIMES A D AY Endocet 10 mg-325 mg tablet RxNorm: 3840210 1-2 Tablet(s) PO Q4H 02/06/2013 Inactive PRN PAIN MS Contin 200 mg tablet,extended release RxNorm: 026003 1 Table t(s) PO BID 01/18/2013 02/06/2013 Inactive Ventolin HFA 90 mcg/actuation Aerosol Inhaler RxNorm: 0605543 2 Puff(s) INH Q4H 01/04/2013 No Stop Date Active prn Spiriva with HandiHaler 18 mcg & inhalation capsules RxNorm: 422967 1 Capsule(s) INH QD 12/29/2012 06/25/2013 Inactive INHALE CONTENTS OF 1 CAPSULE(S) WITH HANDIHALER ONCE DAILY Spiriva with HandiHaler 18 mcg & inhalation capsules RxNorm: 870029 1 Capsule(s) INH QD 12/26/2012 12/28/2012 Inactive INHALE CONTENTS OF 1 CAPSULE(S) WITH HANDIHALER ONCE DAILY Synthroid 112 mcg tablet RxNorm: 857715 Tablet(s) PO TA KE ONE TABLET BY MOUTH EVERY DAY 12/26/2012 04/09/2013 Inactive Endocet 10 mg-325 mg tablet RxNorm: 9259968 1-2 Tablet(s) PO Q4H 01/17/2013 Inactive PRN PAIN MS Contin 200 mg tablet,extended release RxNorm: 422869 1 Table t(s) PO BID 12/21/2012 01/17/2013 Inactive fluoxetine 20 mg capsule RxNorm: 049426 1 Capsule(s) PO QD 12/06/19 13 02/26/2013 Inactive Synthroid 112 mcg tablet RxNorm: 260616 1 Tablet(s) PO QD 12/06/2012 02/12/2019 Inactive TAKE ONE TABLET BY MOUTH EVERY DAY Ventolin HFA 90 mcg/actuation Aerosol Inhaler RxNorm: 4671048 2 Puff(s) INH Q4H 12/06/2012 No Stop Date Active prn Reglan 10 mg tablet RxNorm: 715480 1 Tablet(s) PO QID b efore meals and at bedtime 11/24/2012 03/12/2013 Inactive Topamax 100 mg tablet RxNorm: 139745 1 Tablet(s) PO QHS 11/16/2012 Inactive Ventolin HFA 90 mcg/actuation Aerosol Inhaler RxNorm: 0747403 2 Puff(s) INH Q4H 11/09/2012 No Stop Date Active prn gabapentin 800 mg tablet RxNorm: 587177 1 Tablet(s) PO QD 10/27/2012 04/09/2013 Inactive TAKE ONE TABLET BY MOUTH EVERY DAY metformin ER 500 mg tablet,extended release 24 hr RxNorm: 86 0977 1 Tablet(s) PO QD 10/27/2012 04/09/2013 Inactive TAKE ONE TABLET BY MOUTH EVERY DAY Symbicort 160 mcg-4.5 mcg/actuation HFA Aerosol Inhaler RxNo rm: 8956132 2 Puff(s) INH BID 10/27/2012 04/09/2013 Inactive INHALE 2 PUFFS O RALLY TWO TIMES A DAY Premarin 0.9 mg tablet RxNorm: 812136 1 Tablet(s) PO QD 10/27/2012 Inactive TAKE ONE TABLET BY MOUTH EVERY DAY Endocet 10 mg-325 mg tablet RxNorm: 2239835 1-2 Tablet(s) PO Q4H 11/24/2012 Inactive PRN PAIN MS Contin 200 mg tablet,extended release RxNorm: 418905 1 Table t(s) PO BID 10/26/2012 11/24/2012 Inactive Soma 350 mg tablet RxNorm: 929380 1 Tablet(s) PO TID 10/04/201211/02 Inactive TAKE ONE TABLET BY MOUTH THREE TIMES A D AY Ventolin HFA 90 mcg/actuation Aerosol Inhaler RxNorm: 7973864 2 Puff(s) INH Q4H 10/03/2012 No Stop Date Active prn Daliresp 500 mcg tablet RxNorm: 3463480 1 Tablet(s) PO QD 09/28/2012 09/27/2012 Inactive Daliresp 500 mcg tablet RxNorm: 4535594 1 Tablet(s) PO QD 09/28/2012 04/25/2013 Inactive fluoxetine 20 mg capsule RxNorm: 662352 1 Capsule(s) PO QD 09/05/2012/06/2012 Inactive Topamax 50 mg tablet RxNorm: 728949 Tablet(s) PO for 1w k then 1 po q HS for 1wk then 2 po q HS 08/29/2012 09/27/2012 Inactive TAKE 1/2 TABLET BY MOUTH AT BEDTIME FOR 1 WEEK, THEN 1 TABLET AT BEDTIME FOR 1 WEEK, THEN 2 TABLETS AT BEDTIME Topamax 100 mg tablet RxNorm: 059930 1 Tablet(s) PO QHS 08/29/2012 Inactive Ventolin HFA 90 mcg/actuation Aerosol Inhaler RxNorm: 6992542 2 Puff(s) INH Q4H 08/19/2012 No Stop Date Active prn Ventolin HFA 90 mcg/actuation Aerosol Inhaler RxNorm: 2395131 2 Puff(s) INH Q4H 08/15/2012 No Stop Date Active prn Synthroid 112 mcg tablet RxNorm: 661894 1 Tablet(s) PO QD 08/10/2012 11/07/2012 Inactive TAKE ONE TABLET BY MOUTH EVERY DAY Synthroid 112 mcg tablet RxNorm: 442882 1 Tablet(s) PO QD 08/01/2012 08/09/2012 Inactive TAKE ONE TABLET BY MOUTH EVERY DAY Reglan 10 mg tablet RxNorm: 051750 1 Tablet(s) PO QID b efore meals and at bedtime 08/01/2012 11/23/2012 Inactive fluoxetine 40 mg capsule RxNorm: 114106 1 Capsule(s) PO QD 08/01/2001/27/2013 Inactive TAKE ONE CAPSULE BY MOUTH EV JANKI MORNING Ventolin HFA 90 mcg/actuation Aerosol Inhaler RxNorm: 5992932 2 Puff(s) INH Q4H 08/01/2012 No Stop Date Active prn Soma 350 mg tablet RxNorm: 538617 1 Tablet(s) PO TID 07/20/201208/18 Inactive TAKE ONE TABLET BY MOUTH THREE TIMES A D AY Spiriva with HandiHaler 18 mcg & inhalation capsules RxNorm: 619678 1 Capsule(s) INH 07/01/2012 12/25/2012 Inactive INHALE CONTENTS OF 1 CAPSULE(S) WITH HANDIHALER ONCE DAILY Zithromax 250 mg Tab RxNorm: 822833 2 Tablet(s) PO QD 06/28/201206/22 Inactive MS Contin 200 mg tablet,extended release RxNorm: 761476 1 Table t(s) PO BID 06/28/2012 07/27/2012 Inactive Endocet 10 mg-325 mg tablet RxNorm: 6943848 1-2 Tablet(s) PO Q4H 07/27/2012 Inactive PRN PAIN Topamax 100 mg tablet RxNorm: 245120 1 Tablet(s) PO QHS 06/28/2012 Inactive 16.2 mg-0.1037 mg-0.0194 mg tablet RxNorm: 7155921 Tablet(s) PO PRN for gas and cramping 06/08/2012 08/23/2013 Inactive TAKE TWO TABLET S BY MOUTH THREE TIMES A DAY NEEDED FOR GAS AND CRAMPING Ventolin HFA 90 mcg/actuation Aerosol Inhaler RxNorm: 2388127 2 Puff(s) INH Q4H 05/23/2012 No Stop Date Active prn Ventolin HFA 90 mcg/actuation Aerosol Inhaler RxNorm: 1970131 2 Puff(s) INH Q4H 05/11/2012 No Stop Date Active prn Synthroid 112 mcg tablet RxNorm: 223576 1 Tablet(s) PO QD 05/09/2012 07/31/2012 Inactive TAKE ONE TABLET BY MOUTH EVERY DAY gabapentin 800 mg tablet RxNorm: 208660 1 Tablet(s) PO QD 05/09/2012 10/26/2012 Inactive TAKE ONE TABLET BY MOUTH EVERY DAY fluoxetine 40 mg capsule RxNorm: 179411 1 Capsule(s) PO QD 05/09/2007/31/2012 Inactive TAKE ONE CAPSULE BY MOUTH EV JANKI MORNING metformin ER 500 mg tablet,extended release 24 hr RxNorm: 86 0977 1 Tablet(s) PO QD 05/09/2012 10/26/2012 Inactive TAKE ONE TABLET BY MOUTH EVERY DAY Premarin 0.9 mg tablet RxNorm: 972526 1 Tablet(s) PO QD 05/09/2012 Inactive TAKE ONE TABLET BY MOUTH EVERY DAY Symbicort 160 mcg-4.5 mcg/actuation HFA Aerosol Inhaler RxNo rm: 4906513 2 Puff(s) INH BID 05/09/2012 10/26/2012 Inactive INHALE 2 PUFFS O RALLY TWO TIMES A DAY Endocet 10 mg-325 mg Tab RxNorm: 2142550 1-2 Tablet(s) PO Q4H 04/2705/26/2012 Inactive PRN PAIN MS Contin 200 mg Tab RxNorm: 553003 1 Tablet(s) PO BID 04/26/201202/2012 Inactive Ventolin HFA 90 mcg/actuation Aerosol Inhaler RxNorm: 6974416 2 Puff(s) INH Q4H 04/25/2012 05/10/2012 Inactive prn Soma 350 mg tablet RxNorm: 326637 2 Tablet(s) PO TID 04/19/201207/19 Inactive TAKE ONE TABLET BY MOUTH THREE TIMES A D AY Ventolin HFA 90 mcg/actuation Aerosol Inhaler RxNorm: 5641021 2 Puff(s) INH Q4H 04/12/2012 04/24/2012 Inactive prn Reglan 10 mg tablet RxNorm: 081920 1 Tablet(s) PO QID b efore meals and at bedtime 04/11/2012 07/31/2012 Inactive MS Contin 200 mg Tab RxNorm: 507313 1 Tablet(s) PO BID 03/30/201202/2012 Inactive Endocet 10 mg-325 mg Tab RxNorm: 0978954 1-2 Tablet(s) PO Q4H 03/3004/26/2012 Inactive PRN PAIN MS Contin 200 mg Tab RxNorm: 074495 1 Tablet(s) PO BID 03/02/201206/2012 Inactive Endocet 10 mg-325 mg Tab RxNorm: 8254852 1-2 Tablet(s) PO Q4H 03/0203/29/2012 Inactive PRN PAIN Daliresp 500 mcg tablet RxNorm: 0302216 1 Tablet(s) PO QD 03/01/2012 09/28/2012 Inactive MS Contin 200 mg Tab RxNorm: 497920 1 Tablet(s) PO BID 02/02/201208/2012 Inactive Endocet 10 mg-325 mg Tab RxNorm: 1560485 1-2 Tablet(s) PO Q4H 02/0103/01/2012 Inactive PRN PAIN fluoxetine 40 mg capsule RxNorm: 646112 1 Capsule(s) PO QD 02/02/2008/01/2012 Inactive TAKE ONE CAPSULE BY MOUTH EV JANKI MORNING Synthroid 112 mcg Tab RxNorm: 873168 1 Tablet(s) PO QD 01/18/2012 Inactive TAKE ONE TABLET BY MOUTH EVERY DAY lactulose 10 gram/15 mL oral solution RxNorm: 029632 [address]s) PO QD 01/18/2012 No Stop Date Active TAKE 1 TABLESPOON BY MOUTH ONCE DAILY Ventolin HFA 90 mcg/actuation Aerosol Inhaler RxNorm: 7469710 2 Puff(s) INH Q4H 01/18/2012 04/11/2012 Inactive prn MS Contin 200 mg Tab RxNorm: 863795 1 Tablet(s) PO BID 01/05/201210/2012 Inactive Endocet 10 mg-325 mg Tab RxNorm: 4791625 1-2 Tablet(s) PO Q4H 01/0502/01/2012 Inactive PRN PAIN ProAir HFA 90 mcg/Actuation Aerosol Inhaler RxNorm: 7517220 2 Pu ff(s) INH Q4H 12/21/2011 No Stop Date Active prn for wheezing or shortness of breath Spiriva with HandiHaler 18 mcg & inhalation Caps RxNorm: 580 261 1 Capsule(s) INH 12/21/2011 06/30/2012 Inactive INHALE CONTENTS OF 1 CAPSULE(S) WITH HANDIHALER ONCE DAILY Reglan 10 mg Tab RxNorm: 429650 1 Tablet(s) PO QID before meals and at bedtime 12/21/2011 04/10/2012 Inactive Synthroid 112 mcg Tab RxNorm: 848016 1 Tablet(s) PO QD 12/21/2011 Inactive TAKE ONE TABLET BY MOUTH EVERY DAY Endocet 10 mg-325 mg Tab RxNorm: 4413873 1-2 Tablet(s) PO Q4H 11/2512/24/2011 Inactive PRN PAIN MS Contin 200 mg Tab RxNorm: 299138 1 Tablet(s) PO BID 11/25/201112/2011 Inactive lactulose 10 gram/15 mL Oral Soln RxNorm: 663254 Milliliter(s) PO 1 No Stop Date Active TAKE 1 TABLESPOON BY MOUTH O NCE DAILY lactulose 10 gram/15 mL Oral Soln RxNorm: 926752 Milliliter(s) PO 1 12/12/2010 11/20/2011 Inactive TAKE 1 TABLESPOON BY MOUTH O NCE DAILY Premarin 0.9 mg Tab RxNorm: 882769 1 Tablet(s) PO QD 10/12/201105/08 Inactive TAKE ONE TABLET BY MOUTH EVERY DAY fluoxetine 20 mg capsule RxNorm: 503839 1 Capsule(s) PO QD 10/12/2009/05/2012 Inactive TAKE ONE CAPSULE BY MOUTH EV JANKI DAY Synthroid 112 mcg Tab RxNorm: 498390 1 Tablet(s) PO QD 10/12/2011 Inactive TAKE ONE TABLET BY MOUTH EVERY DAY metformin ER 500 mg 24 hr Tab RxNorm: 112786 1 Tablet(s) PO QD 09/2311/10/2011 Inactive TAKE ONE TABLET BY MOUTH GLYNN RY DAY Synthroid 112 mcg Tab RxNorm: 069457 1 Tablet(s) PO QD 10/12/2011 Inactive TAKE ONE TABLET BY MOUTH EVERY DAY metformin ER 500 mg 24 hr Tab RxNorm: 597076 1 Tablet(s) PO QD 09/2310/11/2011 Inactive TAKE ONE TABLET BY MOUTH GLYNN DAY Prevacid 30 mg Cap RxNorm: 776570 Capsule(s) PO 10/12/2011 01/25/2012 Inactive TAKE ONE CAPSULE BY MOUTH EVERY DAY Symbicort 160 mcg-4.5 mcg/actuation HFA Aerosol Inhaler RxNo rm: 7888802 2 Puff(s) INH BID 10/12/2011 05/08/2012 Inactive INHALE 2 PUFFS O RALLY TWO TIMES A DAY gabapentin 800 mg Tab RxNorm: 835477 1 Tablet(s) PO QD 10/12/2011 Inactive TAKE ONE TABLET BY MOUTH EVERY DAY MS Contin 200 mg Tab RxNorm: 684089 1 Tablet(s) PO BID 09/23/201111/2010 Inactive Endocet 10 mg-325 mg Tab RxNorm: 4307152 1-2 Tablet(s) PO Q4H 09/2310/22/2011 Inactive PRN PAIN Endocet 10 mg-325 mg Tab RxNorm: 0007569 1-2 Tablet(s) PO Q4H 08/2109/19/2011 Inactive PRN PAIN MS Contin 200 mg Tab RxNorm: 490737 1 Tablet(s) PO BID 08/21/2011 Inactive Diflucan 100 mg Tab RxNorm: 691256 1 Tablet(s) PO QD 08/10/201108/16 Inactive cefdinir 300 mg Cap RxNorm: 741236 2 Capsule(s) PO QD 08/10/201107/24 Inactive Reglan 10 mg Tab RxNorm: 863111 1 Tablet(s) PO AC & HS 07/15/2011 Inactive Endocet 10 mg-325 mg Tab RxNorm: 0687417 1-2 Tablet(s) PO Q4H 07/1508/13/2011 Inactive PRN PAIN One Touch Ultra Test strips RxNorm: Miscellaneous BID 06/11/2011 1 01/16/2014 Inactive TEST TWO TIMES A DAY lactulose 10 gram/15 mL Oral Soln RxNorm: 773891 Milliliter(s) PO 0 06/10/2011 10/11/2011 Inactive TAKE 1 TABLESPOON BY MOUTH O NCE DAILY Chantix Continuing Month Aníbal 1 mg Tab RxNorm: 472292 Tablet(s) PO 0 06/10/2011 11/02/2011 Inactive TAKE DIRECTED - PER PACK[employer] GE INSTRUCTIONS fluoxetine 40 mg Cap RxNorm: 807487 Capsule(s) PO 06/10/2011 02/02/20 Inactive TAKE ONE CAPSULE BY MOUTH EVERY MORNING Chantix Continuing Month Aníbal 1 mg Tab RxNorm: 746700 Ta blet(s) PO TAKE DIRECTED - PER PACKAGE INSTRUCTIONS 05/13/2011 06/09/2011 Inactive Soma 350 mg Tab RxNorm: 394055 Tablet(s) PO TAKE ON E TABLET BY MOUTH THREE TIMES A DAY 05/13/2011 04/18/2012 Inactive Chantix Continuing Month Aníbal 1 mg Tab RxNorm: 796413 Ta blet(s) PO as directed per package instructions. 04/22/2011 05/12/2011 Inactive Symbicort 160 mcg-4.5 mcg/Actuation HFA Aerosol Inhaler RxNo rm: 6126748 HFA Aerosol Inhaler INH INHALE 2 PUFFS ORALLY TWO TIMES A DAY 04/13/2011 Inactive Synthroid 112 mcg Tab RxNorm: 268992 Tablet(s) PO TAKE ONE TABLET BY MOUTH EVERY DAY 04/13/2011 10/12/2011 Inactive Premarin 0.9 mg Tab RxNorm: 572297 Tablet(s) PO TAKE ON E TABLET BY MOUTH EVERY DAY 04/13/2011 10/12/2011 Inactive gabapentin 800 mg Tab RxNorm: 560685 Tablet(s) PO TAKE ONE TABLET BY MOUTH EVERY DAY 04/13/2011 10/12/2011 Inactive Prevacid 30 mg Cap RxNorm: 013119 1 Capsule(s) PO QD 04/13/201110/11 Inactive Spiriva with HandiHaler 18 mcg & inhalation Caps RxNorm: 580 261 Capsule(s) INH INHALE CONTENTS OF 1 CAPSULE(S) WITH HANDIHALER ONCE DAILY 04/13/2011 12/21/2011 Inactive metformin ER 500 mg 24 hr Tab RxNorm: 078489 Tablet(s) PO TAKE ONE TABLET BY MOUTH EVERY DAY 04/13/2011 10/12/2011 Inactive Soma 350 mg Tab RxNorm: 328743 1 Tablet(s) PO QID 03/30/2011 02/13/20 19 Inactive fluoxetine 20 mg Cap RxNorm: 422059 Capsule(s) PO TAKE ONE CAPSULE BY MOUTH EVERY DAY 03/25/2011 10/12/2011 Inactive cefdinir 300 mg Cap RxNorm: 959030 2 Capsule(s) PO QD 03/19/201105/2011 Inactive 16.2 mg-0.1037 mg-0.0194 mg Tab RxNorm: 3267183 2 Tablet(s) PO TID PRN for gas and cramping 03/16/2011 07/13/2011 Inactive Soma 350 mg Tab RxNorm: 389502 2 Tablet(s) PO TID 03/16/2011 03/29/20 11 Inactive Chantix Starting Month Aníbal 0.5 mg (11)-1 mg (3x14) Tab s in a Dose Pack RxNorm: 101193 Tablet(s) PO as directed 03/02/2011 No Stop Date Active diazepam 10 mg Tab RxNorm: 731782 1 Tablet(s) PO BID 02/10/201101/19 Inactive Zofran 4 mg tablet RxNorm: 056953 1 Tablet(s) PO Q4H prn nausea 02/16/2011 Inactive Diflucan 100 mg Tab RxNorm: 379429 1 Tablet(s) PO QD 01/18/201101/24 Inactive Premarin 0.625 mg/g Vaginal Cream RxNorm: 802565 VAG In sert 1gm vaginally at bedtime 3 times weekly 01/18/2011 02/12/2019 Inactive loratadine 10 mg Tab RxNorm: 497953 1 Tablet(s) PO QD 12/17/201003/2012 Inactive Spiriva with HandiHaler 18 mcg & inhalation Caps RxNorm: 580 261 1 Capsule(s) INH QD 12/17/2010 04/12/2011 Inactive Diflucan 100 mg Tab RxNorm: 797722 1 Tablet(s) PO QD 12/17/201012/23 Inactive diazepam 10 mg Tab RxNorm: 271188 1 Tablet(s) PO BID and PRN 201002/12/2019 Inactive One Touch Ultra Test Strips RxNorm: InVt BID Zainab t blood sugar at least twice daily. 11/11/2010 06/11/2011 Inactive fluoxetine 40 mg Cap RxNorm: 795402 1 Capsule(s) PO QAM 11/11/2010 Inactive diazepam 10 mg Tab RxNorm: 552045 1 Tablet(s) PO BID and PRN 200911/12/2010 Inactive Bactrim DS 800 mg-160 mg Tab RxNorm: 161842 1 Tablet(s) PO BID 09/2210/15/2010 Inactive fluoxetine 20 mg Cap RxNorm: 942078 1 Capsule(s) PO QD 10/02/201008/2011 Inactive Bactrim DS 800 mg-160 mg Tab RxNorm: 548552 1 Tablet(s) PO BID 01/201010/03/2010 Inactive Zofran 4 mg Tab RxNorm: 179470 1 Tablet(s) PO Q4H prn nausea 200910/16/2010 Inactive 16.2 mg-0.1037 mg-0.0194 mg Tab RxNorm: 9320698 2 Tablet(s) PO TID PRN for gas and cramping 09/17/2010 10/21/2010 Inactive Gabapentin 800 mg Tab RxNorm: 185769 1 Tablet(s) PO QD 09/16/2010 Inactive ProAir HFA 90 mcg/Actuation Aerosol Inhaler RxNorm: 1525216 2 Puff(s) INH Q4H prn shortness of breath 09/15/2010 12/13/2010 Inactive gabapentin 800 mg Tab RxNorm: 243524 1 Tablet(s) PO QD 09/15/2010 Inactive Prevacid 30 mg Cap RxNorm: 075883 1 Capsule(s) PO QD 09/15/201004/12 Inactive loratadine 10 mg Tab RxNorm: 149242 1 Tablet(s) PO QD 09/15/201011/23 Inactive Premarin 0.9 mg Tab RxNorm: 847134 1 Tablet(s) PO QD 09/15/201004/12 Inactive Synthroid 112 mcg Tab RxNorm: 517729 1 Tablet(s) PO QD 09/15/2010 Inactive metformin ER 500 mg 24 hr Tab RxNorm: 761109 1 Tablet(s) PO QD 08/2304/12/2011 Inactive Symbicort 160 mcg-4.5 mcg/Actuation Inhalation HFA Aer osol Inhaler RxNorm: 0974711 2 Puff(s) INH BID 09/15/2010 04/12/2011 Inactive diazepam 10 mg Tab RxNorm: 217086 1 Tablet(s) PO BID and PRN 200910/13/2010 Inactive Phentermine 37.5 mg Cap RxNorm: 599453 1 Capsule(s) PO QD 09/02/2010 11/02/2011 Inactive ProAir HFA 90 mcg/Actuation Aerosol Inhaler RxNorm: 8377137 2 Puff(s) INH Q4H prn shortness of breath 08/07/2010 No Stop Date Active Premarin 0.9 mg Tab RxNorm: 686635 1 Tablet(s) PO QD 08/07/201009/14 Inactive Loratadine 10 mg Tab RxNorm: 679042 1 Tablet(s) PO QD 08/07/201008/23 Inactive Lactulose 10 gram/15 mL Oral Soln RxNorm: 164466 1 Unit Dose PO QD 08/07/2010 02/12/2019 Inactive Zofran 4 mg Tab RxNorm: 115510 1 Tablet(s) PO Q4H prn nausea 2009 No Stop Date Active Gabapentin 800 mg Tab RxNorm: 790246 1 Tablet(s) PO QD 08/07/2010 Inactive Synthroid 112 mcg Tab RxNorm: 070487 1 Tablet(s) PO QD 08/07/2010 Inactive Metformin ER 500 mg 24 hr Tab RxNorm: 487133 1 Tablet(s) PO QD 07/2309/14/2010 Inactive Vitamin D 1,000 unit Tab RxNorm: 959831 1 Tablet(s) PO TID 08/07/2002/12/2019 Inactive Symbicort 160 mcg-4.5 mcg/Actuation Inhalation HFA Aer osol Inhaler RxNorm: 8324371 2 Puff(s) INH BID 08/07/2010 09/14/2010 Inactive Prevacid 30 mg Cap RxNorm: 777011 1 Capsule(s) PO QD 08/07/201009/14 Inactive Metformin ER 500 mg 24 hr Tab RxNorm: 567326 1 Tablet(s) PO QD 06/2308/06/2010 Inactive Vitamin D 1,000 unit Tab RxNorm: 268911 1 Tablet(s) PO TID 07/14/2008/06/2010 Inactive Synthroid 112 mcg Tab RxNorm: 852242 1 Tablet(s) PO QD 07/14/2010 Inactive Lactulose 10 gram/15 mL Oral Soln RxNorm: 830425 1 Unit Dose PO QD 07/14/2010 08/06/2010 Inactive Levaquin 500 mg Tab RxNorm: 971210 1 Tablet(s) PO QD 07/14/201007/27 Inactive Premarin 0.9 mg Tab RxNorm: 279616 1 Tablet(s) PO QD 07/14/201008/06 Inactive ProAir HFA 90 mcg/Actuation Aerosol Inhaler RxNorm: 7783534 2 Puff(s) INH Q4H prn shortness of breath 07/14/2010 No Stop Date Active Prevacid 30 mg Cap RxNorm: 809159 1 Capsule(s) PO QD 07/14/201008/06 Inactive Zofran 4 mg Tab RxNorm: 697492 1 Tablet(s) PO Q4H prn nausea 2009 No Stop Date Active Symbicort 160 mcg-4.5 mcg/Actuation Inhalation HFA Aer osol Inhaler RxNorm: 1877340 2 Puff(s) INH BID 07/14/2010 08/06/2010 Inactive Loratadine 10 mg Tab RxNorm: 791058 1 Tablet(s) PO QD 07/14/201007/23 Inactive Gabapentin 800 mg Tab RxNorm: 036776 1 Tablet(s) PO QD 07/14/2010 Inactive Metformin ER 500 mg 24 hr Tab RxNorm: 336915 1 Tablet(s) PO 010 07/13/2010 Inactive Diazepam 10 mg Tab RxNorm: 571418 1 Tablet(s) PO BID and PRN 200909/06/2010 Inactive Premarin 0.9 mg Tab RxNorm: 191452 1 Tablet(s) PO QD 06/09/201007/13 Inactive Zofran 4 mg Tab RxNorm: 952216 1 Tablet(s) PO Q4H prn nausea 2009 No Stop Date Active ProAir HFA 90 mcg/Actuation Aerosol Inhaler RxNorm: 4001498 2 Puff(s) INH Q4H prn shortness of breath 06/09/2010 No Stop Date Active Gabapentin 800 mg Tab RxNorm: 965212 1 Tablet(s) PO QD 06/09/2010 Inactive Loratadine 10 mg Tab RxNorm: 681613 1 Tablet(s) PO QD 06/09/201006/23 Inactive Lactulose 10 gram/15 mL Oral Soln RxNorm: 909912 1 Unit Dose PO QD 06/09/2010 07/13/2010 Inactive Prevacid 30 mg Cap RxNorm: 716756 1 Capsule(s) PO QD 06/09/201007/13 Inactive Synthroid 112 mcg Tab RxNorm: 739063 1 Tablet(s) PO QD 06/09/2010 Inactive Symbicort 160 mcg-4.5 mcg/Actuation Inhalation HFA Aer osol Inhaler RxNorm: 3240422 2 Puff(s) INH BID 06/09/2010 07/13/2010 Inactive Omnicef 300 mg Cap RxNorm: 238851 2 Capsule(s) PO QD 05/07/201005/20 Inactive Metformin 500 mg Tab RxNorm: 348860 1 Tablet(s) PO QD 05/06/201005/22 Inactive ProAir HFA 90 mcg/Actuation Aerosol Inhaler RxNorm: 8008589 2 Puff(s) INH Q4H prn shortness of breath 05/06/2010 No Stop Date Active lactulose 10 gram/15 mL Oral Soln RxNorm: 398411 1 Unit Dose PO QD 05/06/2010 06/10/2011 Inactive Loratadine 10 mg Tab RxNorm: 297407 1 Tablet(s) PO QD 05/06/201005/22 Inactive Synthroid 112 mcg Tab RxNorm: 423477 1 Tablet(s) PO QD 05/06/2010 Inactive Symbicort 160 mcg-4.5 mcg/Actuation Inhalation HFA Aer osol Inhaler RxNorm: 1372373 2 Puff(s) INH BID 05/06/2010 06/08/2010 Inactive Gabapentin 800 mg Tab RxNorm: 808276 1 Tablet(s) PO QD 05/06/2010 Inactive 16.2 mg-0.1037 mg-0.0194 mg Tab RxNorm: 3050902 2 Tablet(s) PO TID PRN for gas and cramping 05/06/2010 05/12/2010 Inactive Zofran 4 mg Tab RxNorm: 874632 1 Tablet(s) PO Q4H prn nausea 200904/13/2010 Inactive MS Contin 60 mg Tab RxNorm: 718550 3 Tablet(s) PO BID 04/09/201004/22 Inactive Soma 350 mg Tab RxNorm: 454935 2 Tablet(s) PO TID 04/09/2010 05/08/20 10 Inactive Symbicort 160 mcg-4.5 mcg/Actuation Inhalation HFA Aer osol Inhaler RxNorm: 9735035 2 Puff(s) INH BID 04/08/2010 05/05/2010 Inactive Doxycycline 100 mg Cap RxNorm: 1382580 1 Capsule(s) PO BID 04/08/20 10 04/17/2010 Inactive Triamterene-Hydrochlorothiazide 37.5 mg-25 mg Cap RxNorm: 19 8316 1 Capsule(s) PO QAM 04/08/2010 09/04/2010 Inactive fluoxetine 40 mg Cap RxNorm: 146052 1 Capsule(s) PO QAM 04/08/2010 Inactive Morphine SR 120 mg multiphase 24 hr Cap RxNorm: 372281 1 Capsul e(s) PO 03/11/2010 04/07/2010 Inactive Endocet 10 mg-325 mg Tab RxNorm: 3803553 1-2 Tablet(s) PO Q4H CT N PAIN 03/11/2010 04/09/2010 Inactive Savella 100 mg Tab RxNorm: 103005 1 Tablet(s) PO BID 03/10/201004/09 Inactive Soma 350 mg Tab RxNorm: 518297 1 Tablet(s) PO TID prn spasm 010 04/09/2010 Inactive Savella 100 mg Tab RxNorm: 662279 1 Tablet(s) PO BID 02/03/201004/09 Inactive Aspirin 81 mg Tab RxNorm: 045551 1 Tablet(s) PO QD No Start Date Active Zyrtec 10 mg Tab RxNorm: 9429336 1 Tablet(s) PO QD No Start Date Active One Touch Ultra Test Strips RxNorm: Misc test at least t wice daily. No Start Date Active coenzyme Q10 200 mg capsule RxNorm: 289649 1 Capsule(s) PO QD No Star t Date Active One Touch Ultra Test Strips RxNorm: InVt BID Zainab t blood sugar at least twice daily. No Start Date 11/10/2010 Inactive Gabapentin 800 mg Tab RxNorm: 667842 1 Tablet(s) PO QD No Start Date 05/05/2010 Inactive Abilify 5 mg tablet RxNorm: 754276 1 Tablet(s) PO QD No Start Date Inactive Chantix 1 mg Tab RxNorm: 311996 1 Tablet(s) PO BID No Start Date 10/22 Inactive Ozempic 0.25 mg or 0.5 mg (2 mg/1.5 mL) subcutaneous p en injector RxNorm: 7510945 .25 Milligram(s) SQ QW No Start Date 07/04/2019 Inactive lancets 28 gauge RxNorm: Miscellaneous As needed for blo od glucose sticks No Start Date 08/23/2013 Inactive potassium chloride ER 20 mEq tablet,extended release RxNorm: 068917 2 Tablet(s) PO QD No Start Date 09/26/2018 Inactive Ventolin HFA 90 mcg/actuation Aerosol Inhaler RxNorm: 389695 1 2 Puff(s) INH Q4H prn No Start Date 01/17/2012 Inactive potassium chloride ER 20 mEq tablet,extended release RxNorm: 786758 2 Tablet(s) PO QD No Start Date 10/19/2018 Inactive Januvia 100 mg tablet RxNorm: 762121 1 Tablet(s) PO QD No Start Date 09/10/2015 Inactive Medrol (Aníbal) 4 mg Tabs in a Dose Pack RxNorm: 862564 Tablet(s) PO N o Start Date 08/09/2011 Inactive as directed Zithromax Z-Aníbal 250 mg Tab RxNorm: 665987 Tablet(s) PO No Start Date 01/25/2012 Inactive as directed vitamin B6-vitamin E-magnesium tablet RxNorm: 1 Tablet(s ) PO QHS with INH No Start Date 03/30/2018 Inactive prednisone 20 mg Tab RxNorm: 275995 1 Tablet(s) PO TID for 1wk then 1 po BID for 1wk No Start Date 01/25/2012 Inactive furosemide 40 mg tablet RxNorm: 235879 1 Tablet(s) PO QAM No Start Date 10/09/2018 Inactive Vitamin D3 1000 units Capsule RxNorm: 1 Capsule(s) PO TID No S tart Date 03/19/2015 Inactive Zofran 4 mg Tab RxNorm: 953843 1 Tablet(s) PO Q4H prn nausea No Sta rt Date 04/13/2010 Inactive Premarin 0.625 mg/g Vaginal Cream RxNorm: 038716 1 Gram (s) VAG QHS 3 times a week No Start Date 09/22/2017 Inactive oxycodone 10 mg tablet RxNorm: 5634589 1-2 Tablet(s) PO QID as n eeded for pain No Start Date 11/04/2015 Inactive Nicoderm CQ 21 mg/24 hr daily Patch RxNorm: 349228 1 Applicatio n TD QD No Start Date 08/05/2015 Inactive Topamax 50 mg tablet RxNorm: 171986 1/2 Tablet(s) PO QH S for 1wk then 1 po q HS for 1wk then 2 po q HS No Start Date 06/27/2012 Inactive Chantix Starting Month Aníbal 0.5 mg (11)-1 mg (3x14) Tab s in a Dose Pack RxNorm: 476104 Tablet(s) PO as directed No Start Date 03/01/2011 Inactive Trulicity 0.75 mg/0.5 mL subcutaneous pen injector RxNorm: 1 850897 Milliliter(s) SQ No Start Date 07/04/2019 Inactive Medrol (Aníbal) 4 mg Tabs in a Dose Pack RxNorm: 980702 Tablet(s) PO N o Start Date 01/25/2012 Inactive as directed Duragesic 100 mcg/hr Transderm Patch RxNorm: 524718 2 A pplication TD Q48H for pain No Start Date 09/05/2013 Inactive Premarin 0.9 mg Tab RxNorm: 228472 1 Tablet(s) PO QD No Start Date Inactive Zithromax Z-Aníbal 250 mg Tab RxNorm: 131140 Tablet(s) PO as direc chinmay No Start Date 01/25/2012 Inactive ondansetron 8 mg disintegrating tablet RxNorm: 773750 1 Tablet(s) PO Q6H as needed No Start Date 10/10/2018 Inactive oxycodone 15 mg tablet RxNorm: 6748545 1 Tablet(s) PO QID as nee ded for pain No Start Date 03/05/2019 Inactive ProAir HFA 90 mcg/Actuation Aerosol Inhaler RxNorm: 693470 2 Puff(s) INH Q4H prn for wheezing or shortness of breath No Start Date 12/21/2011 Inactive pravastatin 40 mg tablet RxNorm: 462274 1/2 Tablet(s) PO QOD No Sta rt Date 04/09/2015 Inactive ipratropium-albuterol 0.5 mg-3 mg(2.5 mg base)/3 mL ne bulization soln RxNorm: 0467962 1 Unit Dose INH Q4H as needed No Start Date 09/09/2016 Inactive furosemide 40 mg tablet RxNorm: 479119 1 Tablet(s) PO QAM as ne eded No Start Date 09/24/2019 Inactive Vitamin D2 oral RxNorm: 4018 oral No Start Date 03/18/2015 Inacti ve pravastatin 40 mg tablet RxNorm: 823369 1/2 Tablet(s) PO QD No Star t Date 04/09/2015 Inactive ondansetron HCl 4 mg tablet RxNorm: 323724 1 Tablet(s) PO Q4H as needed for nausea and vomiting No Start Date 04/07/2016 Inactive furosemide 40 mg tablet RxNorm: 602617 2 Tablet(s) PO QAM No Start Date 09/26/2018 Inactive gabapentin 800 mg tablet RxNorm: 858074 1/2 Tablet(s) PO BID No Sta rt Date 06/21/2017 Inactive gabapentin 800 mg tablet RxNorm: 223924 1/2 Tablet(s) PO BID No Sta rt Date 07/05/2017 Inactive ProAir HFA 90 mcg/Actuation Aerosol Inhaler RxNorm: 6378150 2 Puff(s) INH Q4H prn shortness of breath No Start Date 05/05/2010 Inactive scopolamine 1 mg over 3 days transdermal patch RxNorm: 17640 2 1 Application TD behind ear. Take off after three days No Start Date 10/10/2018 Inactive Metformin 500 mg Tab RxNorm: 040749 1 Tablet(s) PO QD No Start Date 0 05/05/2010 Inactive MS Contin 200 mg Tab RxNorm: 374178 1 Tablet(s) PO BID No Start Date 08/20/2011 Inactive Belladonna-Phenobarbital 48 mg tablet,extended release RxNor m: 2 Tablet(s) PO TID No Start Date 06/04/2016 Inactive Synthroid 112 mcg Tab RxNorm: 178596 1 Tablet(s) PO QD No Start Date 05/05/2010 Inactive Zegerid 40 mg-1.1 gram Cap RxNorm: 430915 1 Capsule(s) PO QD No Sta rt Date 01/25/2012 Inactive Premarin 0.625 mg/g Vaginal Cream RxNorm: 469116 VAG In sert 1gm vaginally at bedtime 3 times weekly No Start Date 01/17/2011 Inactive potassium chloride ER 20 mEq tablet,extended release RxNorm: 853204 1 Tablet(s) PO QD No Start Date 04/24/2019 Inactive methocarbamol 750 mg tablet RxNorm: 419105 2 Tablet(s) PO TID as needed for muscle spasm No Start Date 07/08/2014 Inactive Biaxin XL Aníbal 500 mg 24 hr Tab RxNorm: 126961 Tablet(s) PO as d irected No Start Date 04/24/2013 Inactive Vitamin D3 1,000 unit tablet RxNorm: 702639 3 Tablet(s) PO QD No St art Date 06/01/2017 Inactive Morphine SR 120 mg multiphase 24 hr Cap RxNorm: 632476 1 Capsul e(s) PO BID No Start Date 04/09/2010 Inactive Silvadene 1 % topical cream RxNorm: 488144 1 Application TOP BI D to burn area No Start Date 01/31/2017 Inactive Prednisone 20 mg Tab RxNorm: 810935 1 Tablet(s) PO TID for 3days then BID for 4days No Start Date 01/25/2012 Inactive gabapentin 600 mg tablet RxNorm: 447863 1 Tablet(s) PO BID No Start Date 01/21/2015 Inactive topiramate 50 mg tablet RxNorm: 986397 1 Tablet(s) PO QHS No Start Date 03/30/2018 Inactive Januvia 100 mg tablet RxNorm: 872702 1/2 Tablet(s) PO QD No Start D ate 12/25/2015 Inactive Diazepam 10 mg Tab RxNorm: 288806 1 Tablet(s) PO BID and PRN No Sta rt Date 06/08/2010 Inactive Medication Administered No Medication Administered data Immunizations Vaccine Codes Date Status Influenza CVX: 141 09/28/2012 Pneumovax Unknown 09/28/2012 Influenza (Adult) CVX: 141 09/02/2010 Results No Results data Procedures Procedure Codes Date THER/PROPH/DIAG INJ SC/IM CPT-4: 06799 07/10/2019 METHYLPREDNISOLONE INJECTION CPT-4: J2930 07/10/2019 URINALYSIS NONAUTO W/O SCOPE CPT-4: 80707 09/06/2018 URINE CULTURE/ COLONY COUNT CPT-4: 85396 09/06/2018 DRAIN/INJECT JOINT/BURSA CPT-4: 48633 04/29/2017 TRIAMCINOLONE ACET INJ NOS CPT-4: J3301 04/29/2017 DEXAMETHASONE SODIUM PHOS CPT-4: J1100 04/29/2017 INFLUENZA ASSAY W/OPTIC CPT-4: 07925 12/01/2016 RESPIRATORY CULTURE & STAIN CPT-4: 21747 07/09/2016 TB INTRADERMAL TEST CPT-4: 88374 04/21/2016 DRAIN/INJECT JOINT/BURSA CPT-4: 71877 11/07/2013 METHYLPREDNISOLONE 40 MG INJ CPT-4: J1030 11/07/2013 TRIAMCINOLONE ACET INJ NOS CPT-4: J3301 11/07/2013 DRAIN/INJECT JOINT/BURSA CPT-4: 28519 08/08/2013 METHYLPREDNISOLONE 40 MG INJ CPT-4: J1030 08/08/2013 TRIAMCINOLONE ACET INJ NOS CPT-4: J3301 08/08/2013 FLU VACCINE 3 YRS & > IM UP 64 CPT-4: 29029 2 PNEUMOCOCCAL VACC 23 ADITYA IM CPT-4: 32095 09/28/2012 IMMUNIZATION ADMIN CPT-4: 46259 09/28/2012 IMMUNIZATION ADMIN EACH ADD CPT-4: 06692 09/28/2012 FLU VACCINE 3 YRS & > IM UP 64 CPT-4: 09201 0 IMMUNIZATION ADMIN CPT-4: 45062 09/02/2010 METHYLPREDNISOLONE INJECTION CPT-4: J2930 05/07/2010 THER/PROPH/DIAG INJ SC/IM CPT-4: 35450 05/07/2010 Vital Signs Date Vital 10/30/2019 Blood [...] 1: 122/78 Code: 8480-6 BMI: 29.5 Code: 66743-3 Heart Rate 1: 76 bpm Height: 5'4" Respiratory Rate: 20 bpm SpO2: 96% Tempera ture: 37.0 (C) / 98.6 (F) Weight: 172 lbs 01/25/2019 Blood Pressure 1: 132/80 Code: 8480-6 BMI: 29.7 Code: 76604-4 Heart Rate 1: 84 bpm Height: 5'4" Respiratory Rate: 22 bpm SpO2: 98% Tempera ture: 36.9 (C) / 98.4 (F) Weight: 173 lbs 01/03/2019 Blood Pressure 1: 116/70 Code: 8480-6 BMI: 29.5 Code: 66653-1 Heart Rate 1: 92 bpm Height: 5'4" Respiratory Rate: 24 bpm SpO2: 98% Tempera ture: 37.2 (C) / 98.9 (F) Weight: 172 lbs 11/21/2018 Blood Pressure 1: 146/82 Code: 8480-6 BMI: 28.2 Code: 24114-9 Heart Rate 1: 88 bpm Height: 5'4" Respiratory Rate: 22 bpm SpO2: 97% Tempera ture: 36.9 (C) / 98.4 (F) Weight: 164 lbs 10/27/2018 Blood Pressure 1: 122/70 Code: 8480-6 BMI: 27.6 Code: 13920-1 Heart Rate 1: 88 bpm Height: 5'4" Respiratory Rate: 20 bpm SpO2: 96% Tempera ture: 36.8 (C) / 98.3 (F) Weight: 161 lbs 10/18/2018 Blood Pressure 1: 126/70 Code: 8480-6 BMI: 28.3 Code: 74673-4 Heart Rate 1: 76 bpm Height: 5'4" Respiratory Rate: 20 bpm SpO2: 95% Tempera ture: 37.0 (C) / 98.6 (F) Weight: 165 lbs 09/27/2018 Blood Pressure 1: 124/78 Code: 8480-6 BMI: 27.1 Code: 08518-5 Heart Rate 1: 88 bpm Height: 5'4" Respiratory Rate: 20 bpm SpO2: 98% Tempera ture: 36.4 (C) / 97.6 (F) Weight: 158 lbs 09/14/2018 Blood Pressure 1: 140/72 Code: 8480-6 BMI: 26.1 Code: 24780-1 Heart Rate 1: 100 bpm Height: 5'4" Respiratory Rate: 20 bpm SpO2: 97% Tempera ture: 36.9 (C) / 98.4 (F) Weight: 152 lbs 09/06/2018 Blood Pressure 1: 156/82 Code: 8480-6 BMI: 26.3 Code: 80353-1 Heart Rate 1: 100 bpm Height: 5'4" Respiratory Rate: 28 bpm SpO2: 95% Tempera ture: 37.2 (C) / 98.9 (F) Weight: 153 lbs 08/16/2018 Blood Pressure 1: 130/78 Code: 8480-6 Heart Rate 1: 87 bpm Respiratory Rate: 24 bpm SpO2: 94% Temperature: 36.9 (C) / 98.4 (F) We ight: 147 lbs 8 oz 07/07/2018 Blood Pressure 1: 116/78 Code: 8480-6 BMI: 22.7 Code: 97558-4 Heart Rate 1: 88 bpm Height: 5'4" Respiratory Rate: 22 bpm SpO2: 98% Tempera ture: 36.5 (C) / 97.7 (F) Weight: 132 lbs 05/31/2018 Blood Pressure 1: 128/78 Code: 8480-6 BMI: 22.3 Code: 09727-2 Heart Rate 1: 92 bpm Height: 5'4" Respiratory Rate: 26 bpm SpO2: 94% Tempera ture: 36.7 (C) / 98.1 (F) Weight: 130 lbs 03/31/2018 Blood Pressure 1: 136/78 Code: 8480-6 BMI: 21.5 Code: 42929-4 Heart Rate 1: 76 bpm Height: 5'4" Respiratory Rate: 24 bpm SpO2: 95% Tempera ture: 36.8 (C) / 98.3 (F) Weight: 125 lbs 01/26/2018 Blood Pressure 1: 142/64 Code: 8480-6 BMI: 20.6 Code: 83472-9 Heart Rate 1: 90 bpm Height: 5'4" Respiratory Rate: 24 bpm SpO2: 92% Tempera ture: 36.3 (C) / 97.3 (F) Weight: 120 lbs 10/26/2017 Blood Pressure 1: 124/70 Code: 8480-6 BMI: 20.3 Code: 75563-3 Heart Rate 1: 76 bpm Height: 5'4" Respiratory Rate: 22 bpm SpO2: 94% Tempera ture: 36.7 (C) / 98.1 (F) Weight: 118 lbs 09/23/2017 Blood Pressure 1: 106/70 Code: 8480-6 BMI: 19.2 Code: 12059-5 Heart Rate 1: 76 bpm Height: 5'4" Respiratory Rate: 20 bpm SpO2: 94% Tempera ture: 36.8 (C) / 98.3 (F) Weight: 112 lbs 08/12/2017 Blood Pressure 1: 116/68 Code: 8480-6 BMI: 20.1 Code: 74200-7 Heart Rate 1: 80 bpm Height: 5'4" Respiratory Rate: 22 bpm SpO2: 95% Tempera ture: 36.8 (C) / 98.2 (F) Weight: 117 lbs 07/06/2017 Blood Pressure 1: 136/78 Code: 8480-6 BMI: 20.6 Code: 12606-5 Heart Rate 1: 76 bpm Height: 5'4" Respiratory Rate: 24 bpm SpO2: 96% Tempera ture: 36.8 (C) / 98.2 (F) Weight: 120 lbs 06/02/2017 Blood Pressure 1: 112/70 Code: 8480-6 Heart Rate 1: 92 bpm Height: 5'4" Respiratory Rate: 24 bpm SpO2: 95% Temperature: 37.0 (C) / 98.6 (F) Weight: 04/29/2017 Blood Pressure 1: 94/52 Code: 8480-6 BMI: 19.6 C ode: 90956-3 Heart Rate 1: 84 bpm Height: 5'4" [...] 92/58 Code: 8480-6 BMI: 19.2 C ode: 84609-1 Heart Rate 1: 84 bpm Height: 5'4" Respiratory Rate: 26 bpm SpO2: 95% Tempera ture: 36.7 (C) / 98.0 (F) Weight: 112 lbs 12/01/2016 Blood Pressure 1: 114/70 Code: 8480-6 BMI: 19.2 Code: 26482-6 Heart Rate 1: 96 bpm Height: 5'4" Respiratory Rate: 28 bpm SpO2: 93% Tempera ture: 38.3 (C) / 101.0 (F) Weight: 112 lbs 10/27/2016 Blood Pressure 1: 126/66 Code: 8480-6 BMI: 19.6 Code: 93261-4 Heart Rate 1: 92 bpm Height: 5'4" Respiratory Rate: 28 bpm SpO2: 90% Tempera ture: 36.8 (C) / 98.3 (F) Weight: 114 lbs 09/09/2016 Blood Pressure 1: 126/74 Code: 8480-6 Heart Rate 1: 104 bpm Height: 5'4" Respiratory Rate: 32 bpm SpO2: 88% Temperature: 37 .2 (C) / 99.0 (F) 08/26/2016 Blood Pressure 1: 134/82 Code: 8480-6 BMI: 22.0 Code: 47062-5 Heart Rate 1: 84 bpm Height: 5'4" Respiratory Rate: 24 bpm SpO2: 94% Tempera ture: 36.8 (C) / 98.3 (F) Weight: 128 lbs 05/21/2016 Blood Pressure 1: 142/80 Code: 8480-6 BMI: 21.6 Code: 12841-5 Heart Rate 1: 104 bpm Height: 5'4" Respiratory Rate: 22 bpm SpO2: 93% Tempera ture: 36.0 (C) / 96.8 (F) Weight: 126 lbs 03/25/2016 Blood Pressure 1: 126/62 Code: 8480-6 Heart Rate 1: 88 bpm Respiratory Rate: 20 bpm SpO2: 92% Temperature: 36.8 (C) / 98.3 (F) We ight: 130 lbs 01/23/2016 Blood Pressure 1: 146/82 Code: 8480-6 BMI: 24.1 Code: 02864-5 Heart Rate 1: 92 bpm Height: 5'3" Respiratory Rate: 22 bpm Temperature: 37 .1 (C) / 98.8 (F) Weight: 136 lbs 12/26/2015 Blood Pressure 1: 142/78 Code: 8480-6 BMI: 24.6 Code: 07524-6 Heart Rate 1: 78 bpm Height: 5'3" Respiratory Rate: 20 bpm Temperature: 36 .7 (C) / 98.1 (F) Weight: 139 lbs 12/03/2015 Blood Pressure 1: 126/60 Code: 8480-6 BMI: 24.6 Code: 50836-7 Heart Rate 1: 100 bpm Height: 5'3" Respiratory Rate: 28 bpm Temperature: 37 .6 (C) / 99.6 (F) Weight: 139 lbs 09/10/2015 Blood Pressure 1: 124/64 Code: 8480-6 BMI: 23.7 Code: 99081-2 Heart Rate 1: 88 bpm Height: 5'3" Respiratory Rate: 24 bpm SpO2: 95% Tempera ture: 36.4 (C) / 97.6 (F) Weight: 134 lbs 08/06/2015 Blood Pressure 1: 114/76 Code: 8480-6 BMI: 23.2 Code: 75832-5 Heart Rate 1: 88 bpm Height: 5'3" Respiratory Rate: 22 bpm Temperature: 36 .6 (C) / 97.9 (F) Weight: 131 lbs 07/18/2015 Blood Pressure 1: 144/78 Code: 8480-6 BMI: 23.7 Code: 17828-2 Heart Rate 1: 84 bpm Height: 5'3" Respiratory Rate: 20 bpm Temperature: 37 .2 (C) / 99.0 (F) Weight: 134 lbs 04/10/2015 Blood Pressure 1: 110/64 Code: 8480-6 Heart Rate 1: 80 bpm Height: Respiratory Rate: 20 bpm Temperature: 37.1 (C) / 98.8 (F) Weight: 03/05/2015 Blood Pressure 1: 136/80 Code: 8480-6 BMI: 23.9 Code: 45405-9 Heart Rate 1: 76 bpm Height: 5'3" Respiratory Rate: 24 bpm Temperature: 37 .0 (C) / 98.6 (F) Weight: 135 lbs 01/30/2015 Blood Pressure 1: 142/80 Code: 8480-6 BMI: 23.0 Code: 54000-8 Heart Rate 1: 96 bpm Height: 5'3" Respiratory Rate: 22 bpm Temperature: 36 .2 (C) / 97.2 (F) Weight: 130 lbs 01/02/2015 Blood Pressure 1: 124/70 Code: 8480-6 BMI: 23.4 Code: 70091-0 Heart Rate 1: 84 bpm Height: 5'3" Respiratory Rate: 24 bpm SpO2: 95% Tempera ture: 36.9 (C) / 98.5 (F) Weight: 132 lbs 10/03/2014 Blood Pressure 1: 106/68 Code: 8480-6 BMI: 22.5 Code: 27805-1 Heart Rate 1: 88 bpm Height: 5'3" Respiratory Rate: 24 bpm Temperature: 37 .0 (C) / 98.6 (F) Weight: 127 lbs 08/27/2014 Blood Pressure 1: 124/68 Code: 8480-6 BMI: 21.1 Code: 43895-9 Heart Rate 1: 88 bpm Height: 5'3" [...] 1: 120/70 Code: 8480-6 BMI: 19.2 Code: 13090-7 Heart Rate 1: 70 bpm Height: 5'4" Respiratory Rate: 20 bpm Temperature: 36 .9 (C) / 98.4 (F) Weight: 112 lbs 06/28/2013 Blood Pressure 1: 102/68 Code: 8480-6 BMI: 19.6 Code: 42077-5 Heart Rate 1: 76 bpm Height: 5'4" Respiratory Rate: 20 bpm Temperature: 36 .8 (C) / 98.2 (F) Weight: 114 lbs 05/31/2013 Blood Pressure 1: 106/70 Code: 8480-6 BMI: 18.9 Code: 51255-2 Heart Rate 1: 100 bpm Height: 5'4" Respiratory Rate: 20 bpm Temperature: 36 .4 (C) / 97.6 (F) Weight: 110 lbs 05/03/2013 Blood Pressure 1: 126/70 Code: 8480-6 BMI: 19.1 Code: 41353-7 Heart Rate 1: 88 bpm Height: 5'4" Respiratory Rate: 20 bpm Temperature: 37 .1 (C) / 98.8 (F) Weight: 111 lbs 04/25/2013 Blood Pressure 1: 114/68 Code: 8480-6 BMI: 19.4 Code: 81490-3 Heart Rate 1: 92 bpm Height: 5'4" Respiratory Rate: 24 bpm SpO2: 96% Tempera ture: 37.7 (C) / 99.8 (F) Weight: 113 lbs 03/08/2013 Blood Pressure 1: 9468 Code: 8480-6 BMI: 21.3 C ode: 93445-8 Heart Rate 1: 88 bpm Height: 5'4" Respiratory Rate: 24 bpm Temperature: 37 .0 (C) / 98.6 (F) Weight: 124 lbs 02/07/2013 Blood Pressure 1: 106/64 Code: 8480-6 BMI: 21.8 Code: 10657-6 Heart Rate 1: 84 bpm Height: 5'4" Respiratory Rate: 22 bpm Temperature: 36 .8 (C) / 98.2 (F) Weight: 127 lbs 01/10/2013 Blood Pressure 1: 122/68 Code: 8480-6 BMI: 21.6 Code: 71067-1 Heart Rate 1: 94 bpm Height: 5'4" SpO2: 94% Temperature: 36.7 (C) / 98.1 (F) Weight: 126 lbs 09/28/2012 Blood Pressure 1: 124/78 Code: 8480-6 BMI: 24.9 Code: 25256-0 Heart Rate 1: 92 bpm Height: 5'4" Respiratory Rate: 20 bpm Temperature: 36 .7 (C) / 98.1 (F) Weight: 145 lbs 06/28/2012 Blood Pressure 1: 134/80 Code: 8480-6 BMI: 24.9 Code: 13855-5 Heart Rate 1: 76 bpm Height: 5'4" Respiratory Rate: 20 bpm Temperature: 36 .8 (C) / 98.2 (F) Weight: 145 lbs 05/03/2012 Blood Pressure 1: 108/62 Code: 8480-6 BMI: 25.6 Code: 93816-4 Heart Rate 1: 88 bpm Height: 5'4" Temperature: 36.2 (C) / 97.2 (F) Weight: 149 lbs 03/01/2012 Blood Pressure 1: 124/66 Code: 8480-6 BMI: 25.1 Code: 48292-8 Heart Rate 1: 76 bpm Height: 5'4" Respiratory Rate: 20 bpm Temperature: 36 .6 (C) / 97.9 (F) Weight: 146 lbs 01/26/2012 Blood Pressure 1: 118/82 Code: 8480-6 BMI: 25.1 Code: 71204-2 Heart Rate 1: 74 bpm Height: 5'4" Temperature: 36.8 (C) / 98.2 (F) Weight: 146 lbs 11/03/2011 Blood Pressure 1: 126/80 Code: 8480-6 BMI: 27.3 Code: 26075-1 Heart Rate 1: 72 bpm Height: 5'4" [...] prozac Encounters Encounter Performer Location Codes Date ([id number]) OFFICE/OUTPATIENT VISIT EST Diagnosis: Chronic pain syndrome[ICD10: G89.4] Diagnosis: Lumbar degenerative disc disease[ICD10: M51.36] Diagnosis: Muscle spasm[ICD10: M62.838] Vika RENTERIA [facility] CPT-4: 12208 10/30/2019 ([id number]) OFFICE/OUTPATIENT VISIT EST Diagnosis: Chronic pain syndrome[ICD10: G89.4] [facility] CPT-4: 93978 10/25/2019 ([id number]) OFFICE/OUTPATIENT VISIT EST Diagnosis: Epigastric pain[ICD10: R10.13] Diagnosis: Nausea[ICD10: R11.0] Diagnosis: Chronic obstructive pulmonary disease, unspecified[ICD10: J44.9] Vika RENTERIA [facility] CPT-4: 80743 07/26/2019 ([id number]) OFFICE/OUTPATIENT VISIT EST Diagnosis: Chronic obstructive pulmonary disease with (acute) exacerbation[ICD10: J44.1] Diagnosis: Chronic respiratory failure with hypoxia[ICD10: J96.11] Diagnosis: Other fatigue[ICD10: R53.83] Diagnosis: Edema, unspecified[ICD10: R60.9] Vika RENTERIA [employer] [facility] CPT-4: 21142 07/19/2019 ([id number]) OFFICE/OUTPATIENT VISIT EST Diagnosis: Chronic obstructive pulmonary disease with acute lower respiratory infection[ICD10: J44.0] Vika RENTERIA [employer] [facility] CPT-4: 49650 07/10/2019 ([id number]) OFFICE/OUTPATIENT VISIT EST Diagnosis: Type 2 diabetes mellitus with hyperglycemia[ICD10: E11.65] Diagnosis: Other infective otitis externa, left ear[ICD10: H60.392] Vika RENTERIA [employer] [facility] CPT-4: 30361 06/05/2019 ([id number]) OFFICE/OUTPATIENT VISIT EST Diagnosis: Chronic obstructive pulmonary disease with (acute) exacerbation[ICD10: J44.1] Diagnosis: Type 2 diabetes mellitus with hyperglycemia[ICD10: E11.65] Vika RENTERIA [employer] [facility] CPT-4: 13761 05/03/2019 ([id number]) OFFICE/OUTPATIENT VISIT EST Diagnosis: Type 2 diabetes mellitus with hyperglycemia[ICD10: E11.65] Diagnosis: Abnormal weight gain[ICD10: R63.5] Diagnosis: Chronic obstructive pulmonary disease with acute lower respiratory infection[ICD10: J44.0] Vika RENTERIA [employer] [facility] CPT-4: 69983 04/11/2019 ([id number]) OFFICE/OUTPATIENT VISIT EST Diagnosis: Hypothyroidism, unspecified[ICD10: E03.9] Diagnosis: Abnormal weight gain[ICD10: R63.5] Diagnosis: Other fatigue[ICD10: R53.83] Vika RENTERIA [employer] [facility] CPT-4: 03357 03/16/2019 ([id number]) OFFICE/OUTPATIENT VISIT EST Diagnosis: Abnormal weight gain[ICD10: R63.5] Diagnosis: Chronic obstructive pulmonary disease, unspecified[ICD10: J44.9] Diagnosis: Other chronic pain[ICD10: G89.29] Vika RENTERIA [facility] CPT-4: 25428 02/13/2019 ([id number]) OFFICE/OUTPATIENT VISIT EST Diagnosis: Chronic pain syndrome[ICD10: G89.4] Diagnosis: Edema, unspecified[ICD10: R60.9] Diagnosis: Major depressive disorder, 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] Diagnosis: Other fatigue[ICD10: R53.83] Vika RENTERIA [facility] CPT-4: 28794 01/25/2019 ([id number]) OFFICE/OUTPATIENT VISIT EST Diagnosis: Localized edema[ICD10: R60.0] Diagnosis: Other forms of dyspnea[ICD10: R06.09] Diagnosis: Hypothyroidism, unspecified[ICD10: E03.9] Vika RENTERIA [facility] CPT-4: 78162 01/03/2019 ([id number]) OFFICE/OUTPATIENT VISIT EST Diagnosis: Abnormal weight gain[ICD10: R63.5] Diagnosis: Localized edema[ICD10: R60.0] Diagnosis: Chronic pain syndrome[ICD10: G89.4] Vika RENTERIA DO [facility] CPT-4: 61120 11/21/2018 ([id number]) OFFICE/OUTPATIENT VISIT EST Diagnosis: Localized edema[ICD10: R60.0] Vika RENTERIA DO [facility] CPT-4: 88307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
--- OUTSIDE RECORDS SUMMARY | 2020-04-25 00:16 | XMS REPORT | Continuity of Care Document ---
Author Organization Unknown Address Unknown Phone Unavailable Allergies Active Description Code Type Severity Reaction Onset Reported/Identified Relationship to Patient Clinical Status Yes NO KNOWN DRUG ALLERGIES UNKNOWN UNKNOWN Yes No Known Drug Allergies [id number] Drug Allergy Unknown N/A 12/09/2010 Medications Medication Packaging Start Date St op Date Route Dosage Sig Morphine IV cartridge 4mg/cc MG 08/31/2019 08/31/2019 ONCE&1444 TETANUS,DIPTH,PERT ADULT INJ 0 (ADACEL SYRINGE) ML 08/31/2019 08/31/2019 ONCE&1600 CEFAZOLIN VIAL INJ 1 GM (ANCEF) GM 08/31/2019 08/31/2019 ONCE&1600 Problems Date Dx Coded Attending Type Code Diagnosis Diagnosed By 10/21/1450 RADHA WALKER MD Ot E11.622 TYPE 2 DIABETES MELLITUS WITH OTHER SKIN 10/21/1450 RADHA WALKER MD, Ot J44 .9 CHRONIC OBSTRUCTIVE PULMONARY DISEASE, U 10/21/1450 RADHA WALKER MD Ot T21.21XA BURN OF SECOND DEGREE OF CHEST WALL, INI 10/21/1450 RADHA WALKER MD Ot T65.222A TOXIC EFFECT OF TOBACCO CIGARETTES, SELF 10/21/1450 RADHA WALKER MD Ot X58.XXXA EXPOSURE TO OTHER SPECIFIED FACTORS, INI 10/21/1450 RADHA WALKER MD Ot Y99 .8 OTHER EXTERNAL CAUSE STATUS 12/12/2010 Ot 242.90 THY ROTOX NOS NO CRISIS 12/12/2010 Ot 250.00 NANDINI B YUMIKO WO COMPL, TYPE II OR UNSPEC TY 12/12/2010 Ot 276.1 HYPO SMOLALITY 12/12/2010 Ot 276.8 HYPO POTASSEMIA 12/12/2010 Ot 300.4 DYST HYMIC DISORDER 12/12/2010 Ot 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 12/12/2010 Ot 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 12/12/2010 Ot 401.9 HYPE RTENSION NOS 12/12/2010 Ot 486 PNEUMO MURALI, ORGANISM NOS 12/12/2010 Ot 493.20 CHR ONIC OBSTRUCTIVE ASTHMA, NOS 12/12/2010 Ot 530.81 ESO PHAGEAL REFLUX 12/12/2010 Ot 553.3 DIAP HRAGMATIC HERNIA 12/12/2010 Ot 564.00 UNS PEC CONSTIPATION 12/12/2010 Ot 574.00 CHO LELITH W AC CHOLECYST 12/12/2010 Ot 574.10 CHO LELITH W CHOLECYS NEC 12/12/2010 Ot 716.90 ART HROPATHY NOS- UNSPEC 12/12/2010 Ot 722.52 LUM B/LUMBOSAC DISC DEGEN 12/12/2010 Ot 729.1 MYAL BASIL AND MYOSITIS NOS 12/12/2010 Ot 733.00 OST EOPOROSIS NOS 12/12/2010 Ot V12.2 HX- ENDOCR/META/IMMUN DIS 12/12/2010 Ot V12.49 HX OTH DISORD/NERV SYS SENSE ORGANS 12/12/2010 Ot 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, CEREBRAL INFARCTION 12/12/2010 Ot V58.69 OTH MED,LT,CURRENT USE 12/18/2014 Ot 490 12/18/2014 Ot 721.0 12/18/2014 Ot 721.2 12/18/2014 Ot 780.4 12/18/2014 Ot 784.0 12/18/2014 Ot E000.8 12/18/2014 Ot E819.9 12/18/2014 VIKA RENTERIA DO Ot 311 12/18/2014 VIKA RENTERIA DO Ot 401.9 12/18/2014 VIKA RENTERIA DO Ot 707.04 12/18/2014 VIKA RENTERIA DO S Ot 707.20 12/18/2014 VIKA RENTERIA DO S Ot 786.09 12/18/2014 VIKA RENTERIA DO S Ot 786.2 12/28/2014 VIKA RENTERIA DO S Ot 250.12 DIAB W KETOACIDOSIS, TYPE II OR UNSPEC T 12/28/2014 VIKA RENTERIA DO S Ot 275.2 DIS MAGNESIUM METABOLISM 12/28/2014 VIKA RENTERIA DO Ot 276.1 HYPOSMOLALITY 12/28/2014 VIKA RENTERIA DO Ot 292.81 DRUG-INDUCED DELIRIUM 12/28/2014 KENANNDER VIKA S Ot 293.0 DELIRIUM DUE TO CONDITIONS CLASSIFIED EL 12/28/2014 KENANNDER VIKA S Ot 305.1 TOBACCO USE DISORDER 12/28/2014 KENANNDER VIKA S Ot 338.4 CHRONIC PAIN SYNDROME 12/28/2014 KENANNDER DO VIKA S Ot 482.9 BACTERIAL PNEUMONIA NOS 12/28/2014 KENANNDER VIKA S Ot 491.21 OBSTR CHRONIC BRONCHITIS, W (ACUTE) EXAC 12/28/2014 KENANNDER DO VIKA S Ot 518.81 ACUTE RESPIRATORY FAILURE 12/28/2014 KENANNDER VIKA S Ot 530.81 ESOPHAGEAL REFLUX 12/28/2014 LYNN AGUILAR VIKA S Ot E932.0 ADV EFF CORTICOSTEROIDS 12/28/2014 LYNN AGUILAR VIKA S Ot V04.81 ND FOR PROPHYLACTIC VACCIN AND INOCULATI 12/28/2014 LYNN AGUILAR VIKA S Ot V58.67 LONG-TERM (CURRENT) USE OF INSULIN 05/14/2015 EDEN GARCIA MD Ot 721. 2 05/14/2015 EDEN GARCIA MD Ot 737. 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 9 CURVATURE OF SPINE NOS 03/27/2016 ORENDER DO, VIKA S Ot 250.00 DIAB YUMIKO WO COMPL, TYPE II OR UNSPEC TY 03/27/2016 ORENDER DO, VIKA S Ot 272.4 HYPERLIPIDEMIA NEC/NOS 03/27/2016 ORENDER DO, VIKA S Ot 719.40 JOINT PAIN-UNSPEC 03/27/2016 ORENDER DO, VIKA S Ot 733.90 BONE CARTILAGE DIS NOS 03/30/2016 ORENDER DO, VIKA S Ot E11.65 TYPE 2 DIABETES MELLITUS WITH HYPERGLYCE 03/30/2016 ORENDER DO, VIKA S Ot R05 COUGH 03/30/2016 ORENDER DO, VIKA S Ot R06.00 DYSPNEA, UNSPECIFIED 03/30/2016 ORENDER DO, VIKA S Ot R07.9 CHEST PAIN, UNSPECIFIED 03/30/2016 ORENDER DO, VIKA S Ot R53.83 OTHER FATIGUE 04/03/2016 ORENDER DO, VIKA S Ot 311 DEPRESSIVE DISORDER NEC 04/03/2016 ORENDER DO, VIKA S Ot 401.9 HYPERTENSION NOS 04/03/2016 ORENDER DO, VIKA S Ot 707.04 PRESSURE ULCER, HIP 04/03/2016 ORENDER DO, VIKA S Ot 707.20 PRESSURE ULCER, UNSPECIFIED STAGE 04/03/2016 ORENDER DO, VIKA S Ot 786.09 RESPIRATORY ABNORM NEC 04/03/2016 ORENDER DO, VIKA S Ot 786.2 COUGH 04/03/2016 EDEN GARCIA MD Ot 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 9 CURVATURE OF SPINE NOS 04/03/2016 ORENDER DO, VIKA S Ot 250.00 DIAB YUMIKO WO COMPL, TYPE II OR UNSPEC TY 04/03/2016 ORENDER DO, VIKA S Ot 272.4 HYPERLIPIDEMIA NEC/NOS 04/03/2016 ORENDER DO, VIKA S Ot 719.40 JOINT PAIN-UNSPEC 04/03/2016 ORENDER DO, VIKA S Ot 733.90 BONE CARTILAGE DIS NOS 04/03/2016 ORENDER DO, VIKA S Ot E11.65 TYPE 2 DIABETES MELLITUS WITH HYPERGLYCE 04/03/2016 ORENDER DO, VIKA S Ot R05 COUGH 04/03/2016 ORENDER DO, VIKA S Ot R06.00 DYSPNEA, UNSPECIFIED 04/03/2016 ORENDER DO, VIKA S Ot R07.9 CHEST PAIN, UNSPECIFIED 04/03/2016 ORENDER DO, VIKA S Ot R53.83 OTHER FATIGUE 04/06/2016 ORENDER DO, VIKA S Ot R91.8 OTHER NONSPECIFIC ABNORMAL FINDING OF KVNG 04/06/2016 ORENDER DO, VIKA S Ot R91.8 OTHER NONSPECIFIC ABNORMAL FINDING OF KVNG 04/07/2016 ORENDER DO, VIKA S Ot R91.8 OTHER NONSPECIFIC ABNORMAL FINDING OF KVNG 04/07/2016 ORENDER DO, VIKA S Ot R91.8 OTHER NONSPECIFIC ABNORMAL FINDING OF KVNG 04/08/2016 ORENDER DO, VIKA S Ot E11.65 TYPE 2 DIABETES MELLITUS WITH HYPERGLYCE 04/08/2016 ORENDER DO, VIKA S Ot R05 COUGH 04/08/2016 ORENDER DO, VIKA S Ot R06.00 DYSPNEA, UNSPECIFIED 04/08/2016 ORENDER DO, VIKA S Ot R07.9 CHEST PAIN, UNSPECIFIED 04/08/2016 ORENDER DO, VIKA S Ot R53.83 OTHER FATIGUE 04/22/2016 ORENDER DO, VIKA S Ot R91.8 OTHER NONSPECIFIC ABNORMAL FINDING OF KVNG 12/08/2016 VERA LEBLANC MD Ot R63.4 ABNORMAL WEIGHT LOSS 12/08/2016 VERA LEBLANC MD Ot Z01.81 8 ENCOUNTER FOR OTHER PREPROCEDURAL EXAMIN 12/09/2016 VERA LEBLANC MD Ot R63.4 ABNORMAL WEIGHT LOSS 12/09/2016 VERA LEBLANC MD Ot Z01.81 8 ENCOUNTER FOR OTHER PREPROCEDURAL EXAMIN 12/09/2016 ORENDER DO, VIKA S Ot 311 DEPRESSIVE DISORDER NEC 12/09/2016 ORENDER DO, VIKA S Ot 401.9 HYPERTENSION NOS 12/09/2016 ORENDER DO, VIKA S Ot 707.04 PRESSURE ULCER, HIP 12/09/2016 ORENDER DO, VIKA S Ot 707.20 PRESSURE ULCER, UNSPECIFIED STAGE 12/09/2016 KENANNDER , VIKA S Ot 786.09 RESPIRATORY ABNORM NEC 12/09/2016 KENANNDMERISSA AGUILAR VIKA S Ot 786.2 COUGH 12/09/2016 JOSE GARCIA, EDEN Groves Ot 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 9 CURVATURE OF SPINE NOS 12/09/2016 KENANNDER DO VIKA S Ot 250.00 DIAB YUMIKO WO COMPL, TYPE II OR UNSPEC TY 12/09/2016 ORENDER DO, VIKA S Ot 272.4 HYPERLIPIDEMIA NEC/NOS 12/09/2016 KENANNDER DO, VIKA S Ot 719.40 JOINT PAIN-UNSPEC 12/09/2016 KENANNDER DO VIKA S Ot 733.90 BONE CARTILAGE DIS NOS 12/09/2016 KENANNDER DO VIKA S Ot E11.65 TYPE 2 DIABETES MELLITUS WITH HYPERGLYCE 12/09/2016 KENANNDMERISSA VIKA S Ot R05 COUGH 12/09/2016 KENANNDMERISSA AGUILAR VIKA S Ot R06.00 DYSPNEA, UNSPECIFIED 12/09/2016 KENANNDER VIKA S Ot R07.9 CHEST PAIN, UNSPECIFIED 12/09/2016 KENANNDER DO VIKA S Ot R53.83 OTHER FATIGUE 12/09/2016 KENANNDER DO VIKA S Ot R91.8 OTHER NONSPECIFIC ABNORMAL FINDING OF KVNG 12/09/2016 VERA LEBLANC MD, Ot E11.9 TYPE 2 DIABETES MELLITUS WITHOUT COMPLIC 12/09/2016 VERA LEBLANC MD, Ot K21.0 GASTRO-ESOPHAGEAL REFLUX DISEASE WITH ES 12/09/2016 VERA LEBLANC MD, Ot K29.70 GASTRITIS, UNSPECIFIED, WITHOUT BLEEDING 12/09/2016 VERA LEBLANC MD, Ot K44.9 DIAPHRAGMATIC HERNIA WITHOUT OBSTRUCTION 12/09/2016 VERA LEBLANC MD, Ot K57.90 DVRTCLOS OF INTEST, PART UNSP, W/O PERF 12/09/2016 VERA LEBLANC MD, Ot K64.1 SECOND DEGREE HEMORRHOIDS 12/09/2016 VERA LEBLANC MD, Ot Z79.89 9 OTHER DIRECTOR RIVER RESTORATION (CURRENT) DRUG THERAPY 12/10/2016 VERA LEBLANC MD, Ot E11.9 TYPE 2 DIABETES MELLITUS WITHOUT COMPLIC 12/10/2016 VERA LEBLANC MD, Ot K21.0 GASTRO-ESOPHAGEAL REFLUX DISEASE WITH ES 12/10/2016 VERA LEBLANC MD Ot K29.70 GASTRITIS, UNSPECIFIED, WITHOUT BLEEDING 12/10/2016 VERA LEBLANC MD, Ot K44.9 DIAPHRAGMATIC HERNIA WITHOUT OBSTRUCTION 12/10/2016 VERA LEBLANC MD, Ot K57.90 DVRTCLOS OF INTEST, PART UNSP, W/O PERF 12/10/2016 VERA LEBLANC MD, Ot K64.1 SECOND DEGREE HEMORRHOIDS 12/10/2016 VERA LEBLANC MD, Ot Z79.89 9 OTHER DIRECTOR RIVER [employer]ORATION (CURRENT) DRUG THERAPY 12/16/2016 VERA LEBLANC MD, Ot E11.9 TYPE 2 DIABETES MELLITUS WITHOUT COMPLIC 12/16/2016 VERA LEBLANC MD, Ot K21.0 GASTRO-ESOPHAGEAL REFLUX DISEASE WITH ES 12/16/2016 VERA LEBLANC MD, Ot K29.70 GASTRITIS, UNSPECIFIED, WITHOUT BLEEDING 12/16/2016 VERA LEBLANC MD, Ot K44.9 DIAPHRAGMATIC HERNIA WITHOUT OBSTRUCTION 12/16/2016 VERA LEBLANC MD, Ot K57.90 DVRTCLOS OF INTEST, PART UNSP, W/O PERF 12/16/2016 VERA LEBLANC MD, Ot K64.1 SECOND DEGREE HEMORRHOIDS 12/16/2016 VERA LEBLANC MD, Ot Z79.89 9 OTHER LONGTERM (CURRENT) DRUG THERAPY 01/01/2017 VERA LEBLANC MD, Ot E11.9 TYPE 2 DIABETES MELLITUS WITHOUT COMPLIC 01/01/2017 VERA LEBLANC MD, Ot K21.0 GASTRO-ESOPHAGEAL REFLUX DISEASE WITH ES 01/01/2017 VERA LEBLANC MD, Ot K29.70 GASTRITIS, UNSPECIFIED, WITHOUT BLEEDING 01/01/2017 VEAR LEBLANC MD, Ot K44.9 DIAPHRAGMATIC HERNIA WITHOUT OBSTRUCTION 01/01/2017 VERA LEBLANC MD, Ot K57.90 DVRTCLOS OF INTEST, PART UNSP, W/O PERF 01/01/2017 VERA LEBLANC MD, Ot K64.1 SECOND DEGREE HEMORRHOIDS 01/01/2017 VERA LEBLANC MD, Ot Z79.89 9 OTHER LONGTERM (CURRENT) DRUG THERAPY 01/06/2017 ORENDER DO, VIKA S Ot R05 COUGH 01/06/2017 ORENDER DO, VIKA S Ot R50.9 FEVER, UNSPECIFIED 01/06/2017 ORENDER DO, VIKA S Ot R63.4 ABNORMAL WEIGHT LOSS 01/15/2017 ORENDER DO, VIKA S Ot R05 COUGH 01/15/2017 ORENDER DO, VIKA S Ot R50.9 FEVER, UNSPECIFIED 01/15/2017 ORENDER DO, VIKA S Ot R63.4 ABNORMAL WEIGHT LOSS 02/08/2017 RADHA WALKER MD Ot T21.01XA BURN OF UNSPECIFIED DEGREE OF CHEST WALL 02/08/2017 RADHA WALKER MD, Ot W40.1XXA EXPLOSION OF EXPLOSIVE GASES, INITIAL EN 02/08/2017 RADHA WALKER MD Ot Y99 .8 OTHER EXTERNAL CAUSE STATUS 02/19/2017 RADHA WALKER MD Ot E11.622 TYPE 2 DIABETES MELLITUS WITH OTHER SKIN 02/19/2017 RADHA WALKER MD Ot J44 .9 CHRONIC OBSTRUCTIVE PULMONARY DISEASE, U 02/19/2017 RADHA WALKER MD Ot T21.21XA BURN OF SECOND DEGREE OF CHEST WALL, INI 02/19/2017 RADHA WALKER MD Ot T65.222A TOXIC EFFECT OF TOBACCO CIGARETTES, SELF 02/19/2017 RADHA WALKER MD Ot X58.XXXA EXPOSURE TO OTHER SPECIFIED FACTORS, INI 02/19/2017 RADHA WALKER MD Ot Y99 .8 OTHER EXTERNAL CAUSE STATUS 02/22/2017 RADHA WALKER MD, Ot T21.01XA BURN OF UNSPECIFIED DEGREE OF CHEST WALL 02/22/2017 RADHA WALKER MD Ot W40.1XXA EXPLOSION OF EXPLOSIVE GASES, INITIAL EN 02/22/2017 RADHA WALKER MD Ot Y99 .8 OTHER EXTERNAL CAUSE STATUS 09/13/2018 ORENDER DO, VIKA S Ot 311 DEPRESSIVE DISORDER NEC 09/13/2018 ORENDER DO, VIKA S Ot 401.9 HYPERTENSION NOS 09/13/2018 ORENDER DO, VIKA S Ot 707.04 PRESSURE ULCER, HIP 09/13/2018 ORENDER DO, VIKA S Ot 707.20 PRESSURE ULCER, UNSPECIFIED STAGE 09/13/2018 KENANNDER DO, VIKA S Ot 786.09 RESPIRATORY ABNORM NEC 09/13/2018 KENANNDER DO, VIKA S Ot 786.2 COUGH 09/13/2018 JOSE GARCIA, EDEN Groves Ot 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 9 CURVATURE OF SPINE NOS 09/13/2018 ORENDER DO, VIKA S Ot 250.00 DIAB YUMIKO WO COMPL, TYPE II OR UNSPEC TY 09/13/2018 ORENDER DO, VIKA S Ot 272.4 HYPERLIPIDEMIA NEC/NOS 09/13/2018 ORENDER DO, VIKA S Ot 719.40 JOINT PAIN-UNSPEC 09/13/2018 ORENDER DO, VIKA S Ot 733.90 BONE CARTILAGE DIS NOS 09/13/2018 ORENDER DO, VIKA S Ot E11.65 TYPE 2 DIABETES MELLITUS WITH HYPERGLYCE 09/13/2018 ORENDER DO, VIKA S Ot R05 COUGH 09/13/2018 KENANNDER DO, VIKA S Ot R06.00 DYSPNEA, UNSPECIFIED 09/13/2018 ORENDER DO, VIKA S Ot R07.9 CHEST PAIN, UNSPECIFIED 09/13/2018 ORENDER DO, VIKA S Ot R53.83 OTHER FATIGUE 09/13/2018 KENANNDER DO, VIKA S Ot R91.8 OTHER NONSPECIFIC ABNORMAL FINDING OF KVNG 09/13/2018 ORENDER DO, VIKA S Ot R05 COUGH 09/13/2018 KENANNDER DO, VIKA S Ot R50.9 FEVER, UNSPECIFIED 09/13/2018 ORENDER DO, VIKA S Ot R63.4 ABNORMAL WEIGHT LOSS 09/13/2018 RADHA WALKER MD Ot T21.01XA BURN OF UNSPECIFIED DEGREE OF CHEST WALL 09/13/2018 RADHA WALKER MD Ot W40.1XXA EXPLOSION OF EXPLOSIVE GASES, INITIAL EN 09/13/2018 RADHA WALKER MD Ot Y99 .8 OTHER EXTERNAL CAUSE STATUS 09/19/2018 KENANNDER DO, VIKA S Ot M16.11 UNILATERAL PRIMARY OSTEOARTHRITIS, RIGHT 09/19/2018 KENANNDER DO, VIKA S Ot M79.89 OTHER SPECIFIED SOFT TISSUE DISORDERS 09/19/2018 ORENDER DO, VIKA S Ot E55.9 VITAMIN D DEFICIENCY, UNSPECIFIED 09/19/2018 ORENDER DO, VIKA S Ot Z72.0 TOBACCO USE 09/19/2018 ORENDER DO, VIKA S Ot Z87.81 PERSONAL HISTORY OF (HEALED) TRAUMATIC F 09/19/2018 TRINITY GIBBONS R ACCOUNTS PAYABLE PROFESSIONAL Ot J43.9 EMPHYSEMA, UNSPECIFIED 09/19/2018 SHAICAYLA CEDENOON R ACCOUNTS PAYABLE PROFESSIONAL Ot M79.89 OTHER SPECIFIED SOFT TISSUE DISORDERS 09/21/2018 KENANNDER DO, VIKA S Ot M16.11 UNILATERAL PRIMARY OSTEOARTHRITIS, RIGHT 09/21/2018 ORENDER DO, VIKA S Ot M79.89 OTHER SPECIFIED SOFT TISSUE DISORDERS 09/23/2018 ORENDER DO, VIKA S Ot K76.0 FATTY (CHANGE OF) LIVER, NOT ELSEWHERE C 09/23/2018 ORENDER DO, VIKA S Ot Z90.49 ACQUIRED ABSENCE OF OTHER SPECIFIED PART 09/27/2018 KENANNDER DO, VIKA S Ot E55.9 VITAMIN D DEFICIENCY, UNSPECIFIED 09/27/2018 ORENDER DO, VIKA S Ot Z72.0 TOBACCO USE 09/27/2018 ORENDER DO, VIKA S Ot Z87.81 PERSONAL HISTORY OF (HEALED) TRAUMATIC F 09/27/2018 KENANNDER DO, VIKA S Ot M16.11 UNILATERAL PRIMARY OSTEOARTHRITIS, RIGHT 09/27/2018 KENANNDER DO, VIKA S Ot M79.89 OTHER SPECIFIED SOFT TISSUE DISORDERS 10/05/2018 TRINITY GIBBONS R ACCOUNTS PAYABLE PROFESSIONAL Ot J43.9 EMPHYSEMA, UNSPECIFIED 10/05/2018 SHAIDEBBY ESQUIVELYSON R ACCOUNTS PAYABLE PROFESSIONAL Ot M79.89 OTHER SPECIFIED SOFT TISSUE DISORDERS 10/11/2018 ORENDER DO, VIKA S Ot K76.0 FATTY (CHANGE OF) LIVER, NOT ELSEWHERE C 10/11/2018 ORENDER DO, VIKA S Ot Z90.49 ACQUIRED ABSENCE OF OTHER SPECIFIED PART 11/07/2018 KENANNDER DO, VIKA S Ot 786.09 RESPIRATORY ABNORM NEC 11/07/2018 ORENDER DO, VIKA S Ot 786.2 COUGH 11/07/2018 EDEN GARCIA MD Ot 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 9 CURVATURE OF SPINE NOS 11/07/2018 ORENDER DO, VIKA S Ot 250.00 DIAB YUMIKO WO COMPL, TYPE II OR UNSPEC TY 11/07/2018 ORENDER DO, VIKA S Ot 272.4 HYPERLIPIDEMIA NEC/NOS 11/07/2018 ORENDER DO, VIKA S Ot 719.40 JOINT PAIN-UNSPEC 11/07/2018 ORENDER DO, VIKA S Ot 733.90 BONE CARTILAGE DIS NOS 11/07/2018 ORENDER DO, VIKA S Ot E11.65 TYPE 2 DIABETES MELLITUS WITH HYPERGLYCE 11/07/2018 ORENDER DO, VIKA S Ot R05 COUGH 11/07/2018 ORENDER DO, VIKA S Ot R06.00 DYSPNEA, UNSPECIFIED 11/07/2018 ORENDER DO, VIKA S Ot R07.9 CHEST PAIN, UNSPECIFIED 11/07/2018 ORENDER DO, VIKA S Ot R53.83 OTHER FATIGUE 11/07/2018 ORENDER DO, VIKA S Ot R91.8 OTHER NONSPECIFIC ABNORMAL FINDING OF KVNG 11/07/2018 ORENDER DO, VIKA S Ot R05 COUGH 11/07/2018 ORENDER DO, VIKA S Ot R50.9 FEVER, UNSPECIFIED 11/07/2018 ORENDER DO, VIKA S Ot R63.4 ABNORMAL WEIGHT LOSS 11/07/2018 AARON GARCIA, RADHA Can Ot T21.01XA BURN OF UNSPECIFIED DEGREE OF CHEST WALL 11/07/2018 AARON GARCIA, ARDHA Can Ot W40.1XXA EXPLOSION OF EXPLOSIVE GASES, INITIAL EN 11/07/2018 AARON GARCIA, RADHA Can Ot Y99 .8 OTHER EXTERNAL CAUSE STATUS 11/07/2018 ORENDER DO, VIKA S Ot E55.9 VITAMIN D DEFICIENCY, UNSPECIFIED 11/07/2018 ORENDER DO, VIKA S Ot Z72.0 TOBACCO USE 11/07/2018 ORENDER DO, VIKA S Ot Z87.81 PERSONAL HISTORY OF (HEALED) TRAUMATIC F 11/07/2018 ORENDER DO, VIKA S Ot M16.11 UNILATERAL PRIMARY OSTEOARTHRITIS, RIGHT 11/07/2018 ORENDER DO, VIKA S Ot M79.89 OTHER SPECIFIED SOFT TISSUE DISORDERS 11/07/2018 TRINITY GIBBONS ACCOUNTS PAYABLE PROFESSIONAL Ot J43.9 EMPHYSEMA, UNSPECIFIED 11/07/2018 CAYLA GIBBONSON R ACCOUNTS PAYABLE PROFESSIONAL Ot M79.89 OTHER SPECIFIED SOFT TISSUE DISORDERS 11/07/2018 KENANNDER DO, VIKA S Ot K76.0 FATTY (CHANGE OF) LIVER, NOT ELSEWHERE C 11/07/2018 ORENDER DO, VIKA S Ot Z90.49 ACQUIRED ABSENCE OF OTHER SPECIFIED PART 11/09/2018 ORENDER DO, VIKA S Ot J44.9 CHRONIC OBSTRUCTIVE PULMONARY DISEASE, U 11/09/2018 ORENDER DO, VIKA S Ot R06.00 DYSPNEA, UNSPECIFIED 12/23/2018 ORENDER DO, VIKA S Ot 786.09 RESPIRATORY ABNORM NEC 12/23/2018 ORENDER DO, VIKA S Ot 786.2 COUGH 12/23/2018 JOSE GARCIA, EDEN Groves Ot 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 9 CURVATURE OF SPINE NOS 12/23/2018 ORENDER DO, VIKA S Ot 250.00 DIAB YUMIKO WO COMPL, TYPE II OR UNSPEC TY 12/23/2018 ORENDER DO, VIKA S Ot 272.4 HYPERLIPIDEMIA NEC/NOS 12/23/2018 ORENDER DO, VIKA S Ot 719.40 JOINT PAIN-UNSPEC 12/23/2018 ORENDER DO, VIKA S Ot 733.90 BONE CARTILAGE DIS NOS 12/23/2018 ORENDER DO, VIKA S Ot E11.65 TYPE 2 DIABETES MELLITUS WITH HYPERGLYCE 12/23/2018 ORENDER DO, VIKA S Ot R05 COUGH 12/23/2018 ORENDER DO, VIKA S Ot R06.00 DYSPNEA, UNSPECIFIED 12/23/2018 ORENDER DO, VIKA S Ot R07.9 CHEST PAIN, UNSPECIFIED 12/23/2018 ORENDER DO, VIKA S Ot R53.83 OTHER FATIGUE 12/23/2018 ORENDER DO, VIKA S Ot R91.8 OTHER NONSPECIFIC ABNORMAL FINDING OF KVNG 12/23/2018 ORENDER DO, VIKA S Ot R05 COUGH 12/23/2018 ORENDER DO, VIKA S Ot R50.9 FEVER, UNSPECIFIED 12/23/2018 KENANNDER DO, VIKA S Ot R63.4 ABNORMAL WEIGHT LOSS 12/23/2018 AARON GARCIA, RADHA Can Ot T21.01XA BURN OF UNSPECIFIED DEGREE OF CHEST WALL 12/23/2018 AARON GARCIA, RADHA Can Ot W40.1XXA EXPLOSION OF EXPLOSIVE GASES, INITIAL EN 12/23/2018 AARON GARCIA, RADHA Can Ot Y99 .8 OTHER EXTERNAL CAUSE STATUS 12/23/2018 KENANNDER , VIKA S Ot E55.9 VITAMIN D DEFICIENCY, UNSPECIFIED 12/23/2018 KENANNDER DO, VIKA S Ot Z72.0 TOBACCO USE 12/23/2018 KENANNDER , VIKA S Ot Z87.81 PERSONAL HISTORY OF (HEALED) TRAUMATIC F 12/23/2018 LALIER , VIKA S Ot M16.11 UNILATERAL PRIMARY OSTEOARTHRITIS, RIGHT 12/23/2018 KENANNDER , VIKA S Ot M79.89 OTHER SPECIFIED SOFT TISSUE DISORDERS 12/23/2018 SHAITRINITY R ACCOUNTS PAYABLE PROFESSIONAL Ot J43.9 EMPHYSEMA, UNSPECIFIED 12/23/2018 SHAICAYLAON R ACCOUNTS PAYABLE PROFESSIONAL Ot M79.89 OTHER SPECIFIED SOFT TISSUE DISORDERS 12/23/2018 KENANNDER , VIKA S Ot K76.0 FATTY (CHANGE OF) LIVER, NOT ELSEWHERE C 12/23/2018 LALIER , VIKA S Ot Z90.49 ACQUIRED ABSENCE OF OTHER SPECIFIED PART 12/23/2018 LALIER , VIKA S Ot J44.9 CHRONIC OBSTRUCTIVE PULMONARY DISEASE, U 12/23/2018 KENANMARYER VIKA S Ot R06.00 DYSPNEA, UNSPECIFIED 12/28/2018 SHAICAYLAON R ACCOUNTS PAYABLE PROFESSIONAL Ot 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 INSUFFICIENCY 12/28/2018 SHAICAYLAON R ACCOUNTS PAYABLE PROFESSIONAL Ot R06.00 DYSPNEA, UNSPECIFIED 12/28/2018 SHAITRINITY R ACCOUNTS PAYABLE PROFESSIONAL Ot R60.9 EDEMA, UNSPECIFIED 01/09/2019 KENANNDER DO VIKA S Ot E03.9 HYPOTHYROIDISM, UNSPECIFIED 04/15/2019 KENANNDER VIKA S Ot E03.9 HYPOTHYROIDISM, UNSPECIFIED 04/18/2019 SHAI, TRINITY R ACCOUNTS PAYABLE PROFESSIONAL Ot J43.9 EMPHYSEMA, UNSPECIFIED 04/18/2019 SHAI, TRINITY R ACCOUNTS PAYABLE PROFESSIONAL Ot M79.89 OTHER SPECIFIED SOFT TISSUE DISORDERS 04/18/2019 DEBBY GIBBONSYSON R ACCOUNTS PAYABLE PROFESSIONAL Ot J43.9 EMPHYSEMA, UNSPECIFIED 04/18/2019 SHAI TRINITY R ACCOUNTS PAYABLE PROFESSIONAL Ot M79.89 OTHER SPECIFIED SOFT TISSUE DISORDERS 04/18/2019 CAYLA GIBBONSON R ACCOUNTS PAYABLE PROFESSIONAL Ot J43.9 EMPHYSEMA, UNSPECIFIED 04/18/2019 SHAI, TRINITY R ACCOUNTS PAYABLE PROFESSIONAL Ot M79.89 OTHER SPECIFIED SOFT TISSUE DISORDERS 04/21/2019 Ot 710.2 04/21/2019 Ot 783.5 04/21/2019 Ot V17.49 04/21/2019 Ot V18.0 04/21/2019 Ot 355.9 04/21/2019 Ot 728.87 04/21/2019 Ot 784.0 04/21/2019 Ot 490 BRONCH ITIS NOS 04/21/2019 CAYLA GIBBONSON R ACCOUNTS PAYABLE PROFESSIONAL Ot J43.9 EMPHYSEMA, UNSPECIFIED 04/21/2019 SHAI TRINITY R ACCOUNTS PAYABLE PROFESSIONAL Ot M79.89 OTHER SPECIFIED SOFT TISSUE DISORDERS 04/21/2019 Ot 721.0 CERV ICAL SPONDYLOSIS 04/21/2019 Ot 721.2 THOR ACIC SPONDYLOSIS 04/21/2019 Ot 780.4 DIZZ INESS AND GIDDINESS 04/21/2019 Ot 784.0 HEAD ACHE 04/21/2019 Ot E000.8 OTH ER EXTERNAL CAUSE STATUS 04/21/2019 Ot E819.9 TRA FFIC ACC NOS- PERS NOS 04/21/2019 SILVIA RENTERIA DOLINE S Ot 311 DEPRESSIVE DISORDER NEC 04/21/2019 SILVIA RENTERIA DOLINE S Ot 401.9 HYPERTENSION NOS 04/21/2019 SILVIA RENTERIA DOLINE S Ot 707.04 PRESSURE ULCER, HIP 04/21/2019 SILVIA RENTERIA DOLINE S Ot 707.20 PRESSURE ULCER, UNSPECIFIED STAGE 04/21/2019 SILVIA RENTERIA DOLINE S Ot 786.09 RESPIRATORY ABNORM NEC 04/21/2019 VIKA RENTERIA DO S Ot 786.2 COUGH 04/21/2019 JOSE GARCIA, EDEN Groves Ot 721. 2 THORACIC SPONDYLOSIS 04/21/2019 JOSE GARCIA, EDEN Groves Ot 737. 9 CURVATURE OF SPINE NOS 04/21/2019 KENANNDER DO, VIKA S Ot 250.00 DIAB YUMIKO WO COMPL, TYPE II OR UNSPEC TY 04/21/2019 ORENDER DO, VIKA S Ot 272.4 HYPERLIPIDEMIA NEC/NOS 04/21/2019 KENANNDER DO, VIKA S Ot 719.40 JOINT PAIN-UNSPEC 04/21/2019 KENANNDER DO, VIKA S Ot 733.90 BONE CARTILAGE DIS NOS 04/21/2019 ORENDER DO, VIKA S Ot E11.65 TYPE 2 DIABETES MELLITUS WITH HYPERGLYCE 04/21/2019 KENANNDER DO, VIKA S Ot R05 COUGH 04/21/2019 KENANNDER DO, VIKA S Ot R06.00 DYSPNEA, UNSPECIFIED 04/21/2019 KENANNDER DO, VIKA S Ot R07.9 CHEST PAIN, UNSPECIFIED 04/21/2019 KENANNDER DO, VIKA S Ot R53.83 OTHER FATIGUE 04/21/2019 KENANNDER DO, VIKA S Ot R91.8 OTHER NONSPECIFIC ABNORMAL FINDING OF KVNG 04/21/2019 KENANNDER DO, VIKA S Ot R05 COUGH 04/21/2019 KENANNDER DO, VIKA S Ot R50.9 FEVER, UNSPECIFIED 04/21/2019 KENANNDER DO, VIKA S Ot R63.4 ABNORMAL WEIGHT LOSS 04/21/2019 AARON GARCIA, RADHA Can Ot T21.01XA BURN OF UNSPECIFIED DEGREE OF CHEST WALL 04/21/2019 RADHA WALKER MD Ot W40.1XXA EXPLOSION OF EXPLOSIVE GASES, INITIAL EN 04/21/2019 RADHA WALKER MD Ot Y99 .8 OTHER EXTERNAL CAUSE STATUS 04/21/2019 KENANNDER DO, VIKA S Ot E55.9 VITAMIN D DEFICIENCY, UNSPECIFIED 04/21/2019 KENANNDER DO, VIKA S Ot Z72.0 TOBACCO USE 04/21/2019 KENANNDER DO, VIKA S Ot Z87.81 PERSONAL HISTORY OF (HEALED) TRAUMATIC F 04/21/2019 KENANNDER DO, VIKA S Ot M16.11 UNILATERAL PRIMARY OSTEOARTHRITIS, RIGHT 04/21/2019 KENANNDER DO, VIKA S Ot M79.89 OTHER SPECIFIED SOFT TISSUE DISORDERS 04/21/2019 KENANNDER DO, VIKA S Ot K76.0 FATTY (CHANGE OF) LIVER, NOT ELSEWHERE C 04/21/2019 KENANNDER DO, VIKA S Ot Z90.49 ACQUIRED ABSENCE OF OTHER SPECIFIED PART 04/21/2019 SHAI, TRINITY R ACCOUNTS PAYABLE PROFESSIONAL Ot 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 INSUFFICIENCY 04/21/2019 SHAI, TRINITY R ACCOUNTS PAYABLE PROFESSIONAL Ot R06.00 DYSPNEA, UNSPECIFIED 04/21/2019 SHAI, TRINITY R ACCOUNTS PAYABLE PROFESSIONAL Ot R60.9 EDEMA, UNSPECIFIED 04/21/2019 ORENDER DO, VIKA S Ot J44.9 CHRONIC OBSTRUCTIVE PULMONARY DISEASE, U 04/21/2019 ORENDER DO, VIKA S Ot R06.00 DYSPNEA, UNSPECIFIED 04/21/2019 ORENDER DO, VIKA S Ot E03.9 HYPOTHYROIDISM, UNSPECIFIED 06/05/2019 SHAI, TRINITY R ACCOUNTS PAYABLE PROFESSIONAL Ot J43.9 EMPHYSEMA, UNSPECIFIED 06/05/2019 SHAI, TRINITY R ACCOUNTS PAYABLE PROFESSIONAL Ot M79.89 OTHER SPECIFIED SOFT TISSUE DISORDERS 06/06/2019 KENANNDER DO, VIKA S Ot K76.0 FATTY (CHANGE OF) LIVER, NOT ELSEWHERE C 06/06/2019 KENANNDER DO, VIKA S Ot Z90.49 ACQUIRED ABSENCE OF OTHER SPECIFIED PART 07/06/2019 SHAI, TRINITY R ACCOUNTS PAYABLE PROFESSIONAL Ot J43.9 EMPHYSEMA, UNSPECIFIED 07/06/2019 SHAI, TRINITY R ACCOUNTS PAYABLE PROFESSIONAL Ot M79.89 OTHER SPECIFIED SOFT TISSUE DISORDERS 07/06/2019 SHAI, TRINITY R ACCOUNTS PAYABLE PROFESSIONAL Ot J43.9 EMPHYSEMA, UNSPECIFIED 07/06/2019 SHAI, TRINITY R ACCOUNTS PAYABLE PROFESSIONAL Ot M79.89 OTHER SPECIFIED SOFT TISSUE DISORDERS 07/06/2019 SHAI, TRINITY R ACCOUNTS PAYABLE PROFESSIONAL Ot J43.9 EMPHYSEMA, UNSPECIFIED 07/06/2019 SHAI, TRINITY R ACCOUNTS PAYABLE PROFESSIONAL Ot M79.89 OTHER SPECIFIED SOFT TISSUE DISORDERS 07/06/2019 SHAI, TRINITY R ACCOUNTS PAYABLE PROFESSIONAL Ot J43.9 EMPHYSEMA, UNSPECIFIED 07/06/2019 SHAI, TRINITY R ACCOUNTS PAYABLE PROFESSIONAL Ot M79.89 OTHER SPECIFIED SOFT TISSUE DISORDERS 08/14/2019 VERA LEBLANC MD, Ot Z01.81 8 ENCOUNTER FOR OTHER PREPROCEDURAL EXAMIN 08/14/2019 VERA LEBLANC MD, Ot Z01.81 8 ENCOUNTER FOR OTHER PREPROCEDURAL EXAMIN 08/31/2019 ANYA BROOKS APRN W 890 .0 OPEN WOUND OF HIP AND THIGH, WITHOUT MENTION OF COMPLICATION 08/31/2019 ANYA BROOKS APRN W S71.112A LACERATION WITHOUT FOREIGN BODY, LEFT THIGH, INIT ENCN TR 09/01/2019 Kevin Klein 890.0 OPEN WOUND OF HIP AND THIGH, WITHOUT MENTION OF COMPLICATION 09/01/2019 Kevin Klein S71.112A LACERATION WITHOUT FOREIGN BODY, LEFT THIGH, INIT ENCNTR 09/01/2019 Kevin Klein V58.31 ENCOUNTER FOR CHANGE OR REMOVAL OF SURGICAL WOUND DRESSING 09/01/2019 Kevin Klein Z48.01 ENCOUNTER FOR CHANGE OR REMOVAL OF SURGICAL WOUND DRESSING 09/08/2019 VERA LEBLANC MD, Ot E03.9 HYPOTHYROIDISM, UNSPECIFIED 09/08/2019 VERA LEBLANC MD, Ot E11.40 TYPE 2 DIABETES MELLITUS WITH DIABETIC N 09/08/2019 VERA LEBLANC MD, Ot E78.00 PURE HYPERCHOLESTEROLEMIA, UNSPECIFIED 09/08/2019 VERA LEBLANC MD, Ot F32.9 MAJOR DEPRESSIVE DISORDER, SINGLE EPISOD 09/08/2019 VERA LEBLANC MD, Ot G35 MULTIPLE SCLEROSIS 09/08/2019 VERA LEBLANC MD, Ot G89.4 CHRONIC PAIN SYNDROME 09/08/2019 VERA LEBLANC MD, Ot I10 ESSENTIAL (PRIMARY) HYPERTENSION 09/08/2019 VERA LEBLANC MD, Ot J44.9 CHRONIC OBSTRUCTIVE PULMONARY DISEASE, U 09/08/2019 VERA LEBLANC MD, Ot K21.0 GASTRO-ESOPHAGEAL REFLUX DISEASE WITH ES 09/08/2019 VERA LEBLANC MD, Ot K22.2 ESOPHAGEAL OBSTRUCTION 09/08/2019 VERA LEBLANC MD, Ot K29.50 UNSPECIFIED CHRONIC GASTRITIS WITHOUT BL 09/08/2019 VERA LEBLANC MD, Ot K44.9 DIAPHRAGMATIC HERNIA WITHOUT OBSTRUCTION 09/08/2019 VERA LEBLANC MD, Ot K59.00 CONSTIPATION, UNSPECIFIED 09/08/2019 VERA LEBLANC MD, Ot M79.7 FIBROMYALGIA 09/08/2019 VERA LEBLANC MD, Ot Z79.82 DIRECTOR RIVER RESTORATION (CURRENT) USE OF ASPIRIN 09/08/2019 VERA LEBLANC MD, Ot Z79.89 9 OTHER DIRECTOR RIVER RESTORATION (CURRENT) DRUG THERAPY 09/08/2019 VERA LEBLANC MD, Ot Z85.42 PERSONAL HISTORY OF MALIGNANT NEOPLASM O 09/08/2019 VERA LEBLANC MD, Ot Z86.73 PRSNL HX OF TIA (TIA), AND CEREB INFRC W 09/08/2019 VERA LEBLANC MD, Ot Z87.19 PERSONAL HISTORY OF OTHER DISEASES OF TH 09/08/2019 VERA LEBLANC MD, Ot Z87.89 1 PERSONAL HISTORY OF NICOTINE DEPENDENCE 09/08/2019 VERA LEBLANC MD, Ot E03.9 HYPOTHYROIDISM, UNSPECIFIED 09/08/2019 VERA LEBLANC MD, Ot E11.40 TYPE 2 DIABETES MELLITUS WITH DIABETIC N 09/08/2019 VERA LEBLANC MD, Ot E78.00 PURE HYPERCHOLESTEROLEMIA, UNSPECIFIED 09/08/2019 VERA LEBLANC MD, Ot F32.9 MAJOR DEPRESSIVE DISORDER, SINGLE EPISOD 09/08/2019 VERA LEBLANC MD, Ot G35 MULTIPLE SCLEROSIS 09/08/2019 VERA LEBLANC MD, Ot G89.4 CHRONIC PAIN SYNDROME 09/08/2019 VERA LEBLANC MD, Ot I10 ESSENTIAL (PRIMARY) HYPERTENSION 09/08/2019 VERA LEBLANC MD, Ot J44.9 CHRONIC OBSTRUCTIVE PULMONARY DISEASE, U 09/08/2019 VERA LEBLANC MD, Ot K21.0 GASTRO-ESOPHAGEAL REFLUX DISEASE WITH ES 09/08/2019 VERA LEBLANC MD, Ot K22.2 ESOPHAGEAL OBSTRUCTION 09/08/2019 VERA LEBLANC MD, Ot K29.50 UNSPECIFIED CHRONIC GASTRITIS WITHOUT BL 09/08/2019 VERA LEBLANC MD, Ot K44.9 DIAPHRAGMATIC HERNIA WITHOUT OBSTRUCTION 09/08/2019 VERA LEBLANC MD, Ot K59.00 CONSTIPATION, UNSPECIFIED 09/08/2019 VERA LEBLANC MD, Ot M79.7 FIBROMYALGIA 09/08/2019 VERA LEBLANC MD, Ot Z79.82 LONGTERM (CURRENT) USE OF ASPIRIN 09/08/2019 VERA LEBLANC MD, Ot Z79.89 9 OTHER DIRECTOR RIVER RESTORATION (CURRENT) DRUG THERAPY 09/08/2019 VERA LEBLANC MD, Ot Z85.42 PERSONAL HISTORY OF MALIGNANT NEOPLASM O 09/08/2019 VERA LEBLANC MD, Ot Z86.73 PRSNL HX OF TIA (TIA), AND CEREB INFRC W 09/08/2019 VERA LEBLANC MD, Ot Z87.19 PERSONAL HISTORY OF OTHER DISEASES OF TH 09/08/2019 VERA LEBLANC MD, Ot Z87.89 1 PERSONAL HISTORY OF NICOTINE DEPENDENCE 12/07/2019 ORENDER DO, VIKA S Ot K76.0 FATTY (CHANGE OF) LIVER, NOT ELSEWHERE C 12/07/2019 ORENDER DO, VIKA S Ot R16.0 HEPATOMEGALY, NOT ELSEWHERE CLASSIFIED 12/12/2019 ORENDER DO, VIKA S Ot K76.0 FATTY (CHANGE OF) LIVER, NOT ELSEWHERE C 12/12/2019 ORENDER DO, VIKA S Ot R16.0 HEPATOMEGALY, NOT ELSEWHERE CLASSIFIED 01/19/2020 W R10.11 Rig ht upper quadrant abdominal pain Orender, Vika S. 01/19/2020 W R10.11 Rig ht upper quadrant abdominal pain Orender, Vkia S. 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 02/13/2020 W L50.9 Urti mehreen Graysonnder, Vika S. 02/13/2020 W Z88.5 Edgar rgy to morphine Orender, Vika S. 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 02/13/2020 W L50.9 Urti mehreen Orender, Vika S. 02/13/2020 W Z88.5 Edgar rgy to morphine Orender, Vika S. 02/21/2020 W M47.812 Sp ondylosis without myelopathy or radiculopathy, cervical region Orender, Vika S. 02/21/2020 W M48.062 Sp inal stenosis, lumbar region with neurogenic claudication Orender, Vika S. 02/22/2020 W M47.812 Sp ondylosis without myelopathy or radiculopathy, cervical region KenanndSilvia isabelline S. 02/22/2020 W M48.062 Sp inal stenosis, lumbar region with neurogenic claudication KenannderLaurieVika S. 03/12/2020 W M48.062 Sp inal stenosis, lumbar region with neurogenic claudication OrenderLaurieVika S. 03/12/2020 W Z88.5 Edgar rgy to morphine OrenderLaurieVika S. 04/24/2020 W R07.9 Ches t pain Orender, Vika S. 04/24/2020 W R07.9 Ches t pain Kenannder, Vika S. Procedures Code Description Performed By Per lluvia On 51.23 LAPA ROSCOPIC CHOLECYSTECTOMY 12/11/2010 87.53 INTR AOPER CHOLANGIOGRAM 12/11/2010 Results Test Result Range Capillary blood glucose measurement by g lucometer (mass/volume) - 12/09/16 10:23 Capillary blood glucose measurement by glucometer (mas s/volume) 96 mg/dL 70-110 Bacteria identification in isolate by an aerobe culture - 02/03/17 15:33 Bacteria identification in isolate by anaerobe culture NOANA NRG Gram stain microscopy - 02/03/17 15:33 GRAM STAIN RESULT NO WBC'S OR BACTERIA OBSERVED NRG Bacteria identification in wound by cult ure - 02/03/17 15:33 Bacteria identification in wound by culture [id number] NRG FREE TEXT EXTERNAL SENSITIVITY REPORTED 01/27 06:56 NRG QUANTITY OF GROWTH Scant Growth NRG MRSA AGAR MRSA isolated (Screening test for MRSA is positive) NRG CALL POSITIVES (F1 HELP) CALLED TO [facility] AT 1206, 02-08-2017/KD NRG Bacterial susceptibility panel - 7 15:33 Oxacillin susceptibility test by minimum inhibitory co ncentration >= NRG Gentamicin susceptibility test by minimum inhibitory c oncentration <= NRG Clindamycin susceptibility test by minimum inhibitory concentration <= NRG Erythromycin susceptibility test by minimum inhibitory concentration >= NRG Trimethoprim/sulfamethoxazole susceptibi lity test by minimum inhibitoryconcentration <= NRG Vancomycin susceptibility test by minimum inhibitory c oncentration 1 NRG Levofloxacin susceptibility test by minimum inhibitory concentration 0.25 NRG Rifampin susceptibility test by minimum inhibitory con centration <= NRG Tetracycline susceptibility test by minimum inhibitory concentration <= NRG Comprehensive metabolic panel - 02/05/17 16:35 Serum or plasma sodium measurement (moles/volume) 132 mmol/L 135-145 Serum or plasma potassium measurement (moles/volume) 3.9 mmol/L 3.6-5.0 Serum or plasma chloride measurement (moles/volume) 99 mmol/L 98-107 Carbon dioxide 22 mmol/L 21-32 Serum or plasma anion gap determination (moles/volume) 11 mmol/L 5-14 Serum or plasma urea nitrogen measurement (mass/volume ) 7 mg/dL 7-18 Serum or plasma creatinine measurement (mass/volume) 0.65 mg/dL 0.60-1.30 Serum or plasma urea nitrogen/creatinine mass ratio 11 NRG Serum or plasma creatinine measurement w ith calculation of estimated glomerular filtration rate > NRG Serum or plasma glucose measurement (mass/volume) 94 mg/dL 70-105 Serum or plasma calcium measurement (mass/volume) 8.9 mg/dL 8.5-10.1 Serum or plasma total bilirubin measurement (mass/volu me) 0.2 mg/dL 0.1-1.0 Serum or plasma alkaline phosphatase huey surement (enzymatic activity/volume) 81 U/L 40-136 Serum or plasma aspartate aminotransfera se measurement (enzymatic activity/volume) 15 U/L 5-34 Serum or plasma alanine aminotransferase measurement (enzymatic activity/volume) 12 U/L 0-55 Serum or plasma protein measurement (mass/volume) 6.8 g/dL 6.4-8.2 Serum or plasma albumin measurement (mass/volume) 3.6 g/dL 3.2-4.5 Serum or plasma lithium measurement (mol es/volume) - 02/05/17 16:35 Serum or plasma prealbumin measurement (mass/volume) 14.4 mg/dL 18.0-35.7 Complete blood count (CBC) with automate d white blood cell (WBC) differential - 02/05/17 16:35 Blood leukocytes automated count (number/volume) 11.7 10*3/uL 4.3-11.0 Blood erythrocytes automated count (number/volume) 4.36 10*6/uL 4.35-5.85 Venous blood hemoglobin measurement (mass/volume) 12.6 g/dL 11.5-16.0 Blood hematocrit (volume fraction) 39 % 35-52 Automated erythrocyte mean corpuscular volume 89 [ foz_us] 80-99 Automated erythrocyte mean corpuscular h emoglobin (mass per erythrocyte) 29 pg 25-34 Automated erythrocyte mean corpuscular h emoglobin concentration measurement (mass/volume) 33 g/dL 32-36 Automated erythrocyte distribution width ratio 15. 7 % 10.0- 14.5 Automated blood platelet count (count/volume) 459 10*3/uL 130-400 Automated blood platelet mean volume measurement 9.7 [foz_us] 7.4-10.4 Automated blood neutrophils/100 leukocytes 62 % 42-75 Automated blood lymphocytes/100 leukocytes 31 % 12-44 Blood monocytes/100 leukocytes 6 % 0-12 Automated blood eosinophils/100 leukocytes 1 % 0-10 Automated blood basophils/100 leukocytes 0 % 0-10 Blood neutrophils automated count (number/volume) 7.3 10*3 1.8-7.8 Blood lymphocytes automated count (number/volume) 3.6 10*3 1.0-4.0 Blood monocytes automated count (number/volume) 0. 7 10*3 0.0-1.0 Automated eosinophil count 0.1 10*3/uL 0 .0-0.3 Automated blood basophil count (count/volume) 0.0 10*3/uL 0.0-0.1 Hemoglobin A1c - 02/05/17 16:35 Hemoglobin A1c 5.1 % 4.5-6.2 PDM - FENTANYL - 08/09/19 15:38 Prescribed Drug 1 Fentanyl NRG COMMENT NRG Prescribed Drug 2 Oxycodone NRG Prescribed Drug 3 Fentanyl NRG Prescribed Drug 4 Oxycodone NRG Fentanyl 52.0 ng/mL <0.5 medMATCH Fentanyl CONSISTENT NRG Norfentanyl 358.0 ng/mL <0.5 medMATCH Norfentanyl CONSISTENT NRG Capillary blood glucose measurement by g lucometer (mass/volume) - 08/16/19 10:51 Capillary blood glucose measurement by glucometer (mas s/volume) 121 mg/dL 70-110 Protime - 08/31/19 14:07 INR 0.8 1.0-4.0 Protime 9.8 Sec 9.9-12.8 THYROID ANALYZER - 09/05/19 15:15 TSH 3.42 mIU/L 0.40-4.50 Complete blood count (CBC) with automate d white blood cell (WBC) differential - 04/24/20 18:40 Blood leukocytes automated count (number/volume) 7.8 10*3/uL 4.3-11.0 Blood erythrocytes automated count (number/volume) 4.02 10*6/uL 4.35-5.85 Venous blood hemoglobin measurement (mass/volume) 12.7 g/dL 11.5-16.0 Blood hematocrit (volume fraction) 38 % 35-52 Automated erythrocyte mean corpuscular volume 96 [ foz_us] 80-99 Automated erythrocyte mean corpuscular h emoglobin (mass per erythrocyte) 32 pg 25-34 Automated erythrocyte mean corpuscular h emoglobin concentration measurement (mass/volume) 33 g/dL 32-36 Automated erythrocyte distribution width ratio 13. 2 % 10.0- 14.5 Automated blood platelet count (count/volume) 258 10*3/uL 130-400 Automated blood platelet mean volume measurement 9.9 [foz_us] 7.4-10.4 Automated blood neutrophils/100 leukocytes 57 % 42-75 Automated blood lymphocytes/100 leukocytes 33 % 12-44 Blood monocytes/100 leukocytes 8 % 0-12 Automated blood eosinophils/100 leukocytes 2 % 0-10 Automated blood basophils/100 leukocytes 0 % 0-10 Blood neutrophils automated count (number/volume) 4.5 10*3 1.8-7.8 Blood lymphocytes automated count (number/volume) 2.6 10*3 1.0-4.0 Blood monocytes automated count (number/volume) 0. 6 10*3 0.0-1.0 Automated eosinophil count 0.2 10*3/uL 0 .0-0.3 Automated blood basophil count (count/volume) 0.0 10*3/uL 0.0-0.1 Comprehensive metabolic panel - 04/24/20 18:40 Serum or plasma sodium measurement (moles/volume) 137 mmol/L 135-145 Serum or plasma potassium measurement (moles/volume) 3.8 mmol/L 3.6-5.0 Serum or plasma chloride measurement (moles/volume) 104 mmol/L 98-107 Carbon dioxide 22 mmol/L 21-32 Serum or plasma anion gap determination (moles/volume) 11 mmol/L 5-14 Serum or plasma urea nitrogen measurement (mass/volume ) 8 mg/dL 7-18 Serum or plasma creatinine measurement (mass/volume) 0.79 mg/dL 0.60-1.30 Serum or plasma urea nitrogen/creatinine mass ratio 10 NRG Serum or plasma creatinine measurement w ith calculation of estimated glomerular filtration rate > NRG Serum or plasma glucose measurement (mass/volume) 98 mg/dL 70-105 Serum or plasma calcium measurement (mass/volume) 9.5 mg/dL 8.5-10.1 Serum or plasma total bilirubin measurement (mass/volu me) 0.3 mg/dL 0.1-1.0 Serum or plasma alkaline phosphatase huey surement (enzymatic activity/volume) 67 U/L 40-136 Serum or plasma aspartate aminotransfera se measurement (enzymatic activity/volume) 44 U/L 5-34 Serum or plasma alanine aminotransferase measurement (enzymatic activity/volume) 74 U/L 0-55 Serum or plasma protein measurement (mass/volume) 6.9 g/dL 6.4-8.2 Serum or plasma albumin measurement (mass/volume) 4.1 g/dL 3.2-4.5 CALCIUM CORRECTED 9.4 mg/dL 8.5-10.1 PT panel in platelet poor plasma by coag ulation assay - 04/24/20 18:40 Prothrombin time (PT) in platelet poor plasma by coagu lation assay 12.2 s 12.2-14.7 INR in platelet poor plasma or blood by coagulation as say 0.9 0.8-1.4 Activated partial thromboplastin time (a PTT) in platelet poor plasma bycoagulation assay - 04/24/20 18:40 Activated partial thromboplastin time (a PTT) in platelet poor plasma bycoagulation assay 24 s 24-35 Fibrin D-dimer FEU measurement in platel et poor plasma (mass/volume) - 04/24/20 18:40 Fibrin D-dimer FEU measurement in platelet poor plasma (mass/volume) 0.38 ug/mL 0.00-0.49 Serum or plasma troponin i.cardiac measu rement (mass/volume) - 04/24/20 18:40 Serum or plasma troponin i.cardiac measurement (mass/v olume) < ng/mL <0.028 Myoglobin, serum - 04/24/20 18:40 Myoglobin, serum 50.2 ng/mL 10.0-92.0 Serum or plasma lithium measurement (mol es/volume) - 04/24/20 18:40 BNP PT < 10.0 <100.0 Encounters ACCT No. Visit Date/Time Discharge Status Pt. Type Provider Facility Loc./Unit Complaint [id number] 12/19/2019 00:00:00 01/19/2020 15:22 :00 DIS Outpatient Vika Renteria [id number] 09/01/2019 15:40:00 09/01/2019 16:25: 00 DIS Outpatient Kevin Klein [id number] 08/31/2019 13:37:00 08/31/2019 17:26: 00 DIS Outpatient ANYA BROOKS APRN [facility] [id number] 08/31/2019 14:44:29 Document Registration [id number] 12/12/2019 12:52:00 020 13:30:00 DIS Outpatient VIKA RENTERIA DO [facility] SDC IRON DEFICIENCY ANEMIA [id number] 12/06/2019 09:00:00 23:59:59 CLS Outpatient VIKA RENTERIA DO [facility] RAD RUW ABD PAIN [id number] 08/16/2019 10:31:00 13:05:00 DIS Outpatient VERA LEBLANC MD [facility] ENDO REFLUX [id number] 08/14/2019 13:00:00 13:43:00 DIS Outpatient VERA LEBLANC MD [facility] PREOP EGD [id number] 01/09/2019 11:00:00 23:59:59 CLS Outpatient VIKA RENTERIA DO [facility] RAD HYPOTHYROIDISM [id number] 11/07/2018 15:32:00 23:59:59 CLS Outpatient VIKA RENTERIA DO [facility] RT COPD,DYSPNEA [id number] 11/02/2018 13:00:00 23:59:59 CLS Outpatient TRINITY GIBBONS [employer]OUNTS PAYABLE PROFESSIONAL [facility] CARD UNILATERAL SWELLING,DYSPNEA [id number] 09/29/2018 08:36:00 23:59:59 CLS Preadmit VIKA RENTERIA DO [facility] RAD HYPOTHYROIDISM [id number] 09/22/2018 12:50:00 23:59:59 CLS Outpatient VIKA RENTERIA DO [facility] RAD EDEMA OF RLE, D YSPNEA [id number] 09/15/2018 11:32:00 23:59:59 CLS Outpatient TRINITY G[employer]S PAYABLE PROFESSIONAL [facility] RAD DYSPNEA,UNILATE RAL SWELLING [id number] 09/15/2018 11:30:00 23:59:59 CLS Outpatient VIKA RENTERIA DO [facility] RAD HX OF FRACTURE, VITAMIN D DEFICIENCY [id number] 09/14/2018 15:45:00 018 23:59:59 CLS Outpatient VIKA RENTERIA DO [facility] RAD RT LEG SWELLING [id number] 09/02/2018 09:12:00 23:59:59 CLS Preadmit TRINITY [employer] PAYABLE PROFESSIONAL [facility] RAD SCREENING [id number] 02/19/2017 13:51:00 017 14:51:00 DIS Outpatient RADHA WALKER MD [facility] WOUNDCARE [id number] 02/05/2017 16:20:00 017 23:59:59 CLS Outpatient RADHA WALKER MD [facility] LAB BURN ANTERIOR CHEST [id number] 01/05/2017 14:15:00 017 23:59:59 CLS Outpatient VIKA RENTERIA DO [facility] RAD COUGH,FEVER,WIE GHT LOSS [id number] 12/09/2016 09:19:00 017 12:35:00 DIS Outpatient VERA LEBLANC MD [facility] SDC ABDOMINAL PAIN [id number] 12/08/2016 10:47:00 017 10:57:00 DIS Outpatient VERA LEBLANC MD [facility] PREOP ABDOMINAL PAIN [id number] 04/03/2016 09:51:00 016 23:59:59 CLS Outpatient VIKA RENTERIA DO S [facility] RAD RIGHT LUNG BASE MASS [id number] 03/27/2016 12:39:00 016 23:59:59 CLS Outpatient VIKA RENTERIA DO S [facility] CARD CHEST PAIN,DYSP BILLIE [id number] 03/26/2015 16:38:00 015 23:59:59 CLS Preadmit EDEN GARCIA MD [facility] REHAB [id number] 03/18/2015 10:25:00 015 23:59:59 CLS Outpatient VIKA RENTERIA DO S [facility] LAB DM II HYPER LI PIDEMIA OSTEOPENIA [id number] 03/18/2015 10:19:00 015 23:59:59 CLS Outpatient EDEN GARCIA MD [facility] RAD BACK PAIN CERVICAL PRAVEEN N THORACACALGIA [id number] 12/19/2014 00:01:00 015 12:10:00 DIS Inpatient VIKA RENTERIA DO S [facility] 4TH PNEUMONIA W/HYP OXIA;MILD DKA [id number] 08/28/2014 16:21:00 014 23:59:59 CLS Outpatient SILVIA RENTERIA DOLINE S [facility] RAD COUGH,DYSPNEA,FATIGUE,ANEMIA,OSTOPENIA,HYPERGLYCEM [id number] 05/09/2013 09:05:00 013 23:59:59 CLS Outpatient SILVIA RENTERIA DOLINE S [facility] HH HIP PRESSURE UL CER,UTI [id number] 04/24/2020 17:17:[address] Inpatient VIKA RENTERIA DO [facility] [id number] 04/21/2019 04:08:00 Document Registration [id number] 12/18/2014 23:11:00 Document Registration [id number] 12/18/2014 23:11:00 Document Registration [id number] 12/18/2014 23:11:00 Document Registration [id number] 12/18/2014 23:11:00 Document Registration [id number] 12/09/2010 01:06:00 Document Registration [id number] 09/26/2010 16:13:00 Document Registration [id number] 09/13/2009 15:05:00 Document Registration [id number] 02/26/2009 15:16:00 Document Registration [id number] 07/31/2008 10:14:00 Document Registration 09/201712/05/2019 17:45:25 12/05/2019 23:59 :59 CLS Outpatient Vika Renteria 784 01/19/2020 10:24:30 Document Registration [id number] 03/14/2020 16:00:00 03/14/2020 23:59: 59 CLS Outpatient Vika Renteria [facility] [id number] 09/05/2019 13:20:00 Document Registration [id number] 08/09/2019 14:20:00 Document Registration
[2020-04-25 02:00] VITALS: BP 126/75
[2020-04-25 04:10] LABS: CHOLESTEROL 296 MG/DL (< 200); HDL CHOLESTEROL 69 MG/DL (40-60); TRIGLYCERIDES 518 MG/DL (<150)
[2020-04-25 07:13] VITALS: BP 134/87
[2020-04-25 08:00] VITALS: BP 134/67
[2020-04-25] MEDS: hydrOXYzine (VISTARIL/ATARAX) 25 MG capsule/tablet PO SCH (08:23)
[2020-04-25] MEDS: GABAPENTIN 600 MG (NEURONTIN) TAB PO SCH ×2 (08:23→13:30)
[2020-04-25] MEDS: morphine ER 100 MG (MS CONTIN) TAB PO SCH (08:25)
[2020-04-25] MEDS ORDERED: ASPIRIN E.C. 81 MG (ECOTRIN) TAB PO SCH (09:00)
[2020-04-25] MEDS ORDERED: PANTOPRAZOLE 40 MG (PROTONIX) TAB PO SCH (09:00)
[2020-04-25] MEDS ORDERED: FLUoxetine HCL 20 MG (PROzac) CAP PO SCH (09:00)
--- NOTE | 2020-04-25 10:52 | Diagnostic Imaging Report ---
INDICATION: Thoracic back pain. History of previous injury. COMPARISON: None FINDINGS: Frontal, lateral, and swimmer's views of the thoracic spine were obtained. Visualization of the upper thoracic spine is limited on the lateral projection. Alignment and vertebral heights are maintained. There is no fracture or destructive process. There are no large paraspinal masses. Mild multilevel degenerative disease is noted in the thoracic spine. Limited views of the lungs are clear. IMPRESSION: 1. No acute fracture or dislocation of the thoracic spine. Dictated by: Dictated on workstation # [id number]
--- NOTE | 2020-04-25 11:08 | Diagnostic Imaging Report ---
PROCEDURE: CT chest without contrast. TECHNIQUE: Multiple contiguous axial images were obtained through the chest without the use of intravenous contrast. Auto Exposure Controls were utilized during the CT exam to meet ALARA standards for radiation dose reduction. INDICATION: COPD with chest pain. Exam compared with CT angio chest 09/15/2018. FINDINGS: Chronic heterogeneous air trapping and features of centrilobular emphysema remain most pronounced in the pulmonary apices. There is some likely increasing subpleural scarring in the right greater than left upper greater than lower lobes peripherally. No acute pneumonia or alveolar consolidation and no azael edema. The heart size is within normal limits. The aorta is nonaneurysmal. No effusion or pneumothorax. No acute chest wall pathology. IMPRESSION: 1. Some chronic air trapping and centrilobular emphysema with likely some increasing peripheral subpleural scarring in the right greater than left upper lobes. 2. No findings, however to suggest pneumonia and no suspicious lung mass or chest effusion. Dictated by: Dictated on workstation # [id number]
[2020-04-25] MEDS: RT-ALBUTEROL/IPRATROPIUM 3 ML (DUONEB) VIAL INH SCH (11:10)
[2020-04-25 11:13] LABS: BILIRUBIN,URINE NEGATIVE (NEGATIVE); CLARITY,URINE CLEAR; COLOR,URINE YELLOW; GLUCOSE, URINE (UA) NEGATIVE (NEGATIVE); KETONES,URINE NEGATIVE (NEGATIVE); LEUKOCYTE ESTERASE ,URINE NEGATIVE (NEGATIVE); NITRITE,URINE NEGATIVE (NEGATIVE); PROTEIN,URINE NEGATIVE (NEGATIVE)
[2020-04-25 11:18] VITALS: BP 115/64
[2020-04-25 11:22] LABS: BACTERIA,URINE TRACE /HPF
[2020-04-25 12:00] VITALS: BP 115/64
[2020-04-25] MEDS ORDERED: MORP100T47 PO (12:38)
[2020-04-25] MEDS ORDERED: HYDR-3781 PO (12:38)
[2020-04-25] MEDS ORDERED: FLUO20CA46 PO (12:38)
[2020-04-25] MEDS ORDERED: PRD20T PO (12:38)
[2020-04-25] MEDS ORDERED: GBPN600T PO (12:38)
[2020-04-25] MEDS ORDERED: methylPREDNISolone 125 MG (Solu-MEDROL) VIAL IVP NR (12:45)
--- NOTE | 2020-04-25 14:10 | NUR ---
PT DISCHARGED HOME WITH ALL PERSONAL BELONGINGS. ALL QUESTIONS ANSWERED WITH NO FURTHER QUESTIONS VOICED. PT TAKEN VIA W/C TO ED ENTRANCE WHERE DAUGHTER WAS WAITING.
--- NOTE | 2020-04-25 17:23 | History & Physical ---
History of Present Illness History of Present Illness Reason for visit/HPI This is a 59 year old female who presented to by office with substernal chest pain and shortness of air. It was decided to directly admit her to rule out cardiac etiology vs PE. Date of Admission Apr 24, 2020 at 17:17 Date Seen by a Provider: Apr 24, 2020 Time Seen by a Provider: 16:30 I consulted on this patient on 04/25/20 17:18 Attending Physician Vika Renteria DO Admitting Physician Vika Renteria DO Consult Allergies and Home Medications Allergies Coded Allergies: No Known Drug Allergies (Unverified , 12/09/10) Home Medications Albuterol Sulfate 18 Gm Hfa.aer.ad, 1-2 PUFF IH Q4H PRN for SHORTNESS OF BREATH, (Reported) Aspirin 81 Mg Tab.chew, 81 MG PO DAILY, (Reported) Biotin 1,000 Mcg Tablet, 1,000 MCG PO DAILY, (Reported) Budesonide 1 Mg/2 Ml Ampul.neb, 1 MG IH BID, (Reported) Budesonide/Formoterol Fumarate 10.2 Gm Hfa.aer.ad, 2 PUFF IH BID, (Reported) Cetirizine HCl 10 Mg Tablet, 10 MG PO DAILY, (Reported) Cholecalciferol (Vitamin D3) 2,000 Unit Tablet, 4,000 UNIT PO DAILY, (Reported) Cyclobenzaprine HCl 10 Mg Tablet, 10 MG PO TID PRN for MUSCLE SPASMS, (Reported) Docusate Sodium 100 Mg Capsule, 100 MG PO TID PRN for CONSTIPATION, (Reported) Estrogens Conjugated 0.45 Mg Tab, 0.45 MG PO DAILY, (Reported) Fluoxetine HCl 20 Mg Capsule, 20 MG PO DAILY Prescribed by: VIKA RENTERIA on 04/25/20 1238 Gabapentin 600 Mg Tablet, 600 MG PO TID Prescribed by: VIKA RENTERIA on 04/25/20 1238 Hydroxyzine Pamoate 25 Mg Capsule, 25 MG PO BID Prescribed by: VIKA RENTERIA on 04/25/20 1238 Ipratropium/Albuterol Sulfate 3 Ml Ampul.neb, 3 ML IH Q4H PRN for SHORTNESS OF BREATH, (Reported) Levothyroxine Sodium 50 Mcg Tablet, 50 MCG PO DAILY, (Reported) Methylnaltrexone [place] 150 Mg Tablet, 150 MG PO TID, (Reported) Morphine Sulfate 100 Mg Tablet.er, 200 MG PO BID Prescribed by: VIKA RENTERIA on 04/25/20 1238 Pantoprazole Sodium 40 Mg Tablet.dr, 40 MG PO DAILY Prescribed by: VERA LEBLANC on 08/16/19 1128 Prednisone 20 Mg Tab, 0 PO BID Prescribed by: VIKA RENTERIA on 04/25/20 1238 Prochlorperazine Maleate 10 Mg Tablet, 10 MG PO QID PRN for NAUSEA/VOMITING, (Reported) Roflumilast 500 Mcg Tablet, 500 MCG PO DAILY, (Reported) Ubidecarenone 200 Mg Capsule, 200 MG PO DAILY, (Reported) Patient Home Medication List Home Medication List Reviewed: Yes Past Tmahvqx-Abnrag-Ulprqu Hx Past Med/Social Hx: Reviewed Nursing Past Med/Soc Hx Patient Social History Former Smoker, Quit: Dec 14, 2017 Type Used: Cigarettes Recent Hopitalizations: No Immunizations Up To Date Tetanus Booster (TDap): Unknown Seasonal Allergies Seasonal Allergies: Yes Past Medical History Surgeries: Appendectomy, Gallbladder, Hysterectomy, Oophorectomy Cardiac: High Cholesterol, Hypertension Neurological: Headaches /Migraines, Multiple Sclerosis, Stroke Female Reproductive Disorders: Endometriosis Hysterectomy Gastrointestinal: Gastroesophageal Reflux Musculoskeletal: Degenerate Disk Disease, Arthritis, Fibromyalgia Endocrine: Hypothyroidsim, Diabetes, Non-Insulin dep, Lupus Cancer: Skin, Cervical Psychosocial: Anxiety, Depression History of Blood Disorders: No (ANEMIA IN PAST) Review of Systems Constitutional: weakness EENTM: No see HPI, No no symptoms reported, No ear discharge, No hearing loss, No ear pain, No blurred vision, No double vision, No eye pain, No tearing, No vision loss, No dental problems, No hoarseness, No mouth pain, No mouth swelling, No epistaxis, No nose congestion, No nose pain, No throat pain, No throat swelling, No other Respiratory: dyspnea on exertion, short of breath Cardiovascular: chest pain, edema Gastrointestinal: No RUQ, No LUQ, No RLQ, No LLQ, No no symptoms reported, No see HPI, No abdominal pain, No constipation, No diarrhea, No dysphagia, No hematemesis, No heartburn, No jaundice, No loss of appetite, No melena, No nausea, No vomiting, No other Genitourinary: No no symptoms reported, No see HPI, No decreased output, No discharge, No dysuria, No frequency, No hematuria, No hesitancy, No incontinence, No nocturia, No pain, No other Musculoskeletal: back pain, muscle weakness Skin: No no symptoms reported, No see HPI, No change in color, No change in hair/nails, No dryness, No hx of skin cancer, No lesions, No lumps, No pruritus, No rash, No other Psychiatric/Neurological: Depressed, Weakness Physical Exam Vital Signs Vital Signs - First Documented 04/24/20 04/24/20 17:44 19:06 Temp 36.4 Pulse 75 Resp 18 B/P (MAP) 154/94 (114) Pulse Ox 98 O2 Delivery Nasal Cannula O2 Flow Rate 3.00 FiO2 32 Capillary Refill : Height, Weight, BMI Height: 5'4.00" Weight: 112lbs. 0.0oz. 50.534936hh; 34.23 BMI Method:Estimated General Appearance: Mild Distress HEENT: Normal ENT Inspection Neck: Supple Respiratory: Decreased Breath Sounds Cardiovascular: Regular Rate, Rhythm, Systolic Murmur Gastrointestinal: Normal Bowel Sounds, Non Tender, Soft Rectal: Deferred Back: No CVA Tenderness Extremity: Non Tender, No Calf Tenderness, No Pedal Edema Neurologic/Psychiatric: Alert, Oriented x3 Skin: Warm/Dry Comments Laboratory Tests 04/24/20 18:40: White Blood Count 7.8, Red Blood Count 4.02L, Hemoglobin 12.7, Hematocrit 38, Mean Corpuscular Volume 96, Mean Corpuscular Hemoglobin 32, Mean Corpuscular Hemoglobin Concent 33, Red Cell Distribution Width 13.2, Platelet Count 258, Mean Platelet Volume 9.9, Neutrophils (%) (Auto) 57, Lymphocytes (%) (Auto) 33, Monocytes (%) (Auto) 8, Eosinophils (%) (Auto) 2, Basophils (%) (Auto) 0, Neutrophils # (Auto) 4.5, Lymphocytes # (Auto) 2.6, Monocytes # (Auto) 0.6, Eosinophils # (Auto) 0.2, Basophils # (Auto) 0.0, Prothrombin Time 12.2, INR Comment 0.9, Activated Partial Thromboplast Time 24, D-Dimer 0.38, Sodium Level 137, Potassium Level 3.8, Chloride Level 104, Carbon Dioxide Level 22, Anion Gap 11, Blood Urea Nitrogen 8, Creatinine 0.79, Estimat Glomerular Filtration Rate > 60, BUN/Creatinine Ratio 10, Glucose Level 98, Calcium Level 9.5, Corrected Calcium 9.4, Total Bilirubin 0.3, Aspartate Amino Transf (AST/SGOT) 44H, Alanine Aminotransferase (ALT/SGPT) 74H, Alkaline Phosphatase 67, Myoglobin 50.2, Troponin I < 0.028, B-Type Natriuretic Peptide < 10.0, Total Protein 6.9, Albumin 4.1 04/25/20 02:41: Troponin I < 0.028, Triglycerides Level 518H, Cholesterol Level 296H, LDL Cholesterol Direct 194H, VLDL Cholesterol , HDL Cholesterol 69H 04/25/20 11:05: Urine Color YELLOW, Urine Clarity CLEAR, Urine pH 7.0, Urine Specific [place] <=1.005, Urine Protein NEGATIVE, Urine Glucose (UA) NEGATIVE, Urine Ketones NEGATIVE, Urine Nitrite NEGATIVE, Urine Bilirubin NEGATIVE, Urine Urobilinogen 0.2, Urine Leukocyte Esterase NEGATIVE, Urine RBC (Auto) NEGATIVE, Urine RBC NONE, Urine WBC NONE, Urine Squamous Epithelial Cells 2-5, Urine Crystals NONE, Urine Bacteria TRACE, Urine Casts NONE, Urine Mucus NEGATIVE, Urine Culture Indicated NO Assessment/Plan Assessment and Plan 1. Chest Pain, uncertain etiology--admit for EKG, cardiac enzymes, CXR, D-dimer w. COPD--oxygen requiring 3. Chronic Pain Syndrome/Debility--stable Admission Diagnosis Admission Status: Observation Clinical Quality Measures DVT/VTE Risk/Contraindication: Risk Factor Score Per Nursin RFS Level Per Nursing on Admit: 4+=Very High VIKA RENTERIA DO Apr 25, 2020 17:23
--- NOTE | 2020-04-25 17:42 | Discharge Summary ---
Diagnosis/Chief Complaint Date of Admission Apr 24, 2020 at 17:17 Date of Discharge Apr 25, 2020 at 14:10 Discharge Date: Apr 25, 2020 Discharge Diagnosis 1. Chest Pain due to Pleurisy--home on prednisone taper 2. COPD--worsening scarring on CT scan of chest 3. Hypertension--stable 4. Chronic Pain Syndrome/Debility--stable 5. Elevated LFTs--fatty liver Reason Hospital Visit This is a 59 year old female who presented to by office with substernal chest pain and shortness of air. It was decided to directly admit her to rule out cardiac etiology vs PE. Discharge Summary Hospital Course Was the Problem List Reviewed?: Yes Hospital Course This is a 59 year old female who presented to by office with substernal chest pain and shortness of air. It was decided to directly admit her to rule out cardiac etiology vs PE. She was admitted to cardiac overflow in the ICU. She had an EKG without evidence of acute changes. She had negative cardiac enzymes. She also had a negative D-Dimer. She underwent a CT of the chest which showed severe emphysematous changes and scarring but no masses or pneumonia. She was given protonix to cover for GI etiology. It was decided that her pain was like pleuritic so she was given IV solumedrol and then will be sent home on prednisone and fwup with me in 1 week. Labs Laboratory Tests 04/24/20 18:40: Red Blood Count 4.02L, Aspartate Amino Transf (AST/SGOT) 44H, Alanine Aminotrans ferase (ALT/SGPT) 74H 04/25/20 02:41: Triglycerides Level 518H, Cholesterol Level 296H, LDL Cholesterol Direct 194H, HDL Cholesterol 69H 04/25/20 11:05: Procedures None. Discharge Physical Examination Allergies: Coded Allergies: No Known Drug Allergies (Unverified , 12/09/10) Vitals & I&Os Vital Signs Date Time Temp Pulse Resp B/P (MAP) Pulse Ox O2 Delivery O2 Flow Rate FiO2 04/25/20 14:10 04/25/20 12:28 64 04/25/20 12:00 Nasal Cannula 3.00 04/25/20 12:00 21 04/25/20 11:18 36.8 98 04/24/20 19:06 32 General Appearance: Alert, Oriented X3, Cooperative, No Acute Distress Respiratory: Clear to Auscultation Cardiovascular: Regular Rate Extremities: No Clubbing, No Cyanosis, No Edema Psych/Mental Status: Mental Status NL, Mood NL Discharge Home Medications Reviewed and agree with Discharge Medication list on patient's Discharge Instruction sheet Instructions to Patient/Family Please see electronic discharge instructions given to patient. Clinical Quality Measures DVT/VTE Risk/Contraindication: Risk Factor Score Per Nursin RFS Level Per Nursing on Admit: 4+=Very High BELLA BAILEY DO Apr 25, 2020 17:42
== END 2020-04-25 14:10 | disposition home or self-care (01) ==
LOC: ICU 17:17
PROVIDERS: ADMIT Family Medicine; ATTEND Family Medicine
DX: R07.2 Precordial pain (principal); R09.1 Pleurisy; I10 Essential (primary) hypertension; J30.9 Allergic rhinitis, unspecified; E78.00 Pure hypercholesterolemia, unspecified; K76.0 Fatty (change of) liver, not elsewhere classified; K21.9 Gastro-esophageal reflux disease without esophagitis; M19.90 Unspecified osteoarthritis, unspecified site; M79.7 Fibromyalgia; E03.9 Hypothyroidism, unspecified; G43.909 Migraine, unspecified, not intractable, without status migrainosus; J44.9 Chronic obstructive pulmonary disease, unspecified; G89.4 Chronic pain syndrome; E11.9 Type 2 diabetes mellitus without complications; F41.9 Anxiety disorder, unspecified; F32.9 Major depressive disorder, single episode, unspecified; Z79.82 Long term (current) use of aspirin; Z79.899 Other long term (current) drug therapy; Z87.891 Personal history of nicotine dependence; Z90.710 Acquired absence of both cervix and uterus; Z90.89 Acquired absence of other organs; Z79.4 Long term (current) use of insulin; Z85.828 Personal history of other malignant neoplasm of skin; Z85.41 Personal history of malignant neoplasm of cervix uteri
CPT/HCPCS: 36415; 71045; 71250; 72072; 80053; 80061; 81000; 83874; 83880; 84484; 85025; 85379; 85610; 85730; 87081; 93005; 94640; 99211

== ENCOUNTER 2021-04-21 15:05 | Emergency (ER) | payer MEDICAID ==
[~2021-04-21 15:05] MED LIST changes: +FLUO20CA46 PO; +HYDR-3781 PO; +MORP100T47 PO
[2021-04-21] MEDS ORDERED: FAMOTIDINE 20MG/2ML IV (PEPCID) IVP ONE (15:15)
[2021-04-21] MEDS ORDERED: methylPREDNISolone 125 MG (Solu-MEDROL) VIAL IVP ONE (15:15)
[2021-04-21] MEDS ORDERED: NS IV 1000 ML 1,000 ML IV SCH (15:15)
[2021-04-21] MEDS ORDERED: LORazepam INJ 2 MG/ML (ATIVAN) VIAL IVP PRN (15:15)
--- NOTE | 2021-04-21 15:18 | ED Integumentary General ---
General Chief Complaint: Allergic Reaction Stated Complaint: ALLERGIC REACTION TO ANTIBIOTIC/HIVES/SOB Nursing Triage Note: reports hives since last night, denies soa, n/v Source: patient Exam Limitations: no limitations History of Present Illness Date Seen by Provider: April 21, 2021 Time Seen by Provider: 15:15 Initial Comments patient has been on Bactrim x5 days for a lymph node anterior to the left ear. Starting yesterday she developed some itchy bumps to both arms. Nothing to the torso. She has had diarrhea which is nonmucousy and nonbloody. No difficulty breathing or shortness of breath. No fevers or chills. She tried a couple of different antibiotics over the past few weeks in addition to steroids to resolve this lymphadenopathy. She has been taking Benadryl 4 tablets every 4 hours to help with the itching and it has not been helping. Timing/Duration: constant Severity: moderate Possible Cause: medications Modifying Factors: improves with scratching Associated Symptoms: denies symptoms Allergies and Home Medications Allergies Coded Allergies: sulfamethoxazole (Verified Allergy, Unknown, 04/21/21) trimethoprim (Verified Allergy, Unknown, 04/21/21) Home Medications Albuterol Sulfate 18 Gm Hfa.aer.ad, 1-2 PUFF IH Q4H PRN for SHORTNESS OF BREATH, (Reported) Aspirin 81 Mg Tab.chew, 81 MG PO DAILY, (Reported) Biotin 1,000 Mcg Tablet, 1,000 MCG PO DAILY, (Reported) Budesonide 1 Mg/2 Ml Ampul.neb, 1 MG IH BID, (Reported) Budesonide/Formoterol Fumarate 10.2 Gm Hfa.aer.ad, 2 PUFF IH BID, (Reported) Cetirizine HCl 10 Mg Tablet, 10 MG PO DAILY, (Reported) Cholecalciferol (Vitamin D3) 2,000 Unit Tablet, 4,000 UNIT PO DAILY, (Reported) Cyclobenzaprine HCl 10 Mg Tablet, 10 MG PO TID PRN for MUSCLE SPASMS, (Reported) Docusate Sodium 100 Mg Capsule, 100 MG PO TID PRN for CONSTIPATION, (Reported) Estrogens Conjugated 0.45 Mg Tab, 0.45 MG PO DAILY, (Reported) Fluoxetine HCl 20 Mg Capsule, 20 MG PO DAILY Prescribed by: BELLA BAILEY on 04/25/20 1238 Gabapentin 600 Mg Tablet, 600 MG PO TID Prescribed by: BELLA BAILEY on 04/25/20 1238 Hydroxyzine Pamoate 25 Mg Capsule, 25 MG PO BID Prescribed by: BELLA BAILEY on 04/25/20 1238 Ipratropium/Albuterol Sulfate 3 Ml Ampul.neb, 3 ML IH Q4H PRN for SHORTNESS OF BREATH, (Reported) Levothyroxine Sodium 50 Mcg Tablet, 50 MCG PO DAILY, (Reported) Methylnaltrexone [place] 150 Mg Tablet, 150 MG PO TID, (Reported) Morphine Sulfate 100 Mg Tablet.er, 200 MG PO BID Prescribed by: BELLA BAILEY on 04/25/20 1238 Pantoprazole Sodium 40 Mg Tablet.dr, 40 MG PO DAILY Prescribed by: VERA LEBLANC on 08/16/19 1128 Prednisone 20 Mg Tab, 0 PO BID Prescribed by: BELLA BAILEY on 04/25/20 1238 Prochlorperazine Maleate 10 Mg Tablet, 10 MG PO QID PRN for NAUSEA/VOMITING, (Reported) Roflumilast 500 Mcg Tablet, 500 MCG PO DAILY, (Reported) Ubidecarenone 200 Mg Capsule, 200 MG PO DAILY, (Reported) Patient Home Medication List Home Medication List Reviewed: Yes Review of Systems Review of Systems Constitutional: see HPI EENTM: see HPI Respiratory: no symptoms reported Cardiovascular: no symptoms reported Genitourinary: no symptoms reported Musculoskeletal: no symptoms reported Skin: see HPI, pruritus, rash Psychiatric/Neurological: No Symptoms Reported Past Uddcctd-Icjfkb-Rjhqbn Hx Patient Social History Alcohol Use: Denies Use Type Used: Cigarettes Former Smoker, Quit: Dec 14, 2017 Recent Infectious Disease Expo: No Recent Hopitalizations: No Immunizations Up To Date Tetanus Booster (TDap): Unknown Seasonal Allergies Seasonal Allergies: Yes Past Medical History Surgeries: Yes (SEVERAL DXLS, SEVERAL D&C, KNEE SCOPE) Appendectomy, Gallbladder, Hysterectomy, Oophorectomy Respiratory: Yes (OXYGEN @3L) Asthma, COPD Cardiac: Yes High Cholesterol, Hypertension Neurological: Yes (GENERALIZED NERVE PAIN) Headaches /Migraines, Multiple Sclerosis, Stroke Female Reproductive Disorders: 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 Genitourinary: No Gastrointestinal: Yes Gastroesophageal Reflux Musculoskeletal: Yes Degenerate Disk Disease, Arthritis, Fibromyalgia Endocrine: Yes Hypothyroidsim, Diabetes, Non-Insulin dep, Lupus HEENT: Yes Cancer: Yes Skin, Cervical Psychosocial: Yes Anxiety, Depression Integumentary: No Blood Disorders: No (ANEMIA IN PAST) Physical Exam Vital Signs Vital Signs - First Documented 04/21/21 15:10 Temp 36.4 Pulse 100 Resp 18 B/P (MAP) 144/57 (86) Pulse Ox 98 Capillary Refill : Less Than 3 Seconds General Appearance: WD/WN, no apparent distress HEENT: PERRL/EOMI, normal ENT inspection Neck: non-tender, full range of motion Respiratory: no respiratory distress, no accessory muscle use Gastrointestinal: normal bowel sounds, non tender, soft Extremities: non-tender, no calf tenderness Neurologic/Psychiatric: alert, normal mood/affect, oriented x 3 Skin: normal color, warm/dry Skin Problem Location: upper extremities Skin Problem Character: other (Erythematous wheals to the dorsal aspect of the forearms and upper arms on both sides. She has a little bit started on the left ear. She states this is incredibly itchy.) Progress/Results/Core Measures Results/Orders Lab Results Laboratory Tests Test 04/21/21 15:15 Range/Units White Blood Count 8.3 4.3-11.0 10^3/uL Red Blood Count 4.40 3.80-5.11 10^6/uL Hemoglobin 13.0 11.5-16.0 g/dL Hematocrit 39 35-52 % Mean Corpuscular Volume 88 80-99 fL Mean Corpuscular Hemoglobin 30 25-34 pg Mean Corpuscular Hemoglobin Concent 33 32-36 g/dL Red Cell Distribution Width 13.3 10.0-14.5 % Platelet Count 285 130-400 10^3/uL Mean Platelet Volume 9.5 9.0-12.2 fL Immature Granulocyte % (Auto) 0 % Neutrophils (%) (Auto) 51 42-75 % Lymphocytes (%) (Auto) 32 12-44 % Monocytes (%) (Auto) 7 0-12 % Eosinophils (%) (Auto) 8 0-10 % Basophils (%) (Auto) 1 0-10 % Neutrophils # (Auto) 4.3 1.8-7.8 X 10^3 Lymphocytes # (Auto) 2.7 1.0-4.0 X 10^3 Monocytes # (Auto) 0.6 0.0-1.0 X 10^3 Eosinophils # (Auto) 0.7 H 0.0-0.3 10^3/uL Basophils # (Auto) 0.1 0.0-0.1 10^3/uL Immature Granulocyte # (Auto) 0.0 0.0-0.1 10^3/uL Sodium Level 135 135-145 MMOL/L Potassium Level 4.0 3.6-5.0 MMOL/L Chloride Level 104 98-107 MMOL/L Anion Gap 17 H 5-14 MMOL/L Blood Urea Nitrogen 4 L 7-18 MG/DL Creatinine 1.00 0.60-1.30 MG/DL Estimat Glomerular Filtration Rate 57 BUN/Creatinine Ratio 4 Glucose Level 105 70-105 MG/DL Calcium Level 9.5 8.5-10.1 MG/DL My Orders Orders - EMILY JOHNSON CAROUSEL ATTENDANT Cbc With Automated Diff (04/21/21 15:12) Basic Metabolic Panel (04/21/21 15:12) Ed Iv/Invasive Line Start (04/21/21 15:12) Methylprednisolone Sod Succ (Solu-Medrol (04/21/21 15:15) Famotidine Injection (Pepcid Injection) (04/21/21 15:15) Lorazepam Injection (Ativan Injection) (04/21/21 15:15) Ns Iv 1000 Ml (Sodium Chloride 0.9%) (04/21/21 15:15) Medications Given in ED Current Medications Medications Dose Ordered Sig/Braulio Route Start Time Stop Time Status Last Admin Dose Admin Famotidine 20 mg ONCE ONCE IVP 04/21/21 15:15 04/21/21 15:16 DC 04/21/21 15:24 20 MG Lorazepam 1 mg ONCE PRN IVP 04/21/21 15:15 04/21/21 15:24 1 MG Methylprednisolone Sodium Succinate 125 mg ONCE ONCE IVP 04/21/21 15:15 04/21/21 15:16 DC 04/21/21 15:24 125 MG Vital Signs/I&O 04/21/21 15:10 Temp 36.4 Pulse 100 Resp 18 B/P (MAP) 144/57 (86) Pulse Ox 98 Blood Pressure Mean: 86 Departure Impression Primary Impression: Medication reaction Disposition: 01 HOME, SELF-CARE Condition: Stable Departure-Patient Inst. Decision time for Depature: 15:43 Referrals: BELLA BAILEY DO (PCP/Family) Primary Care Physician Patient Instructions: Adverse Drug Reactions, Adult Add. Discharge Instructions: 1. No more Bactrim 2. Steroids as directed 3. Pepcid as directed 3. You can use Benadryl 2 tablets every 4 hours but do not take Vistaril with it. Follow-up with Dr. Bailey. She may wish to refer you to ear nose and throat specialty for this persistent lymphadenopathy in front of your ear. All discharge instructions reviewed with patient and/or family. Voiced understanding. Scripts Lorazepam (Ativan) 0.5 Mg Tablet 0.5 MG PO BID PRN for ITCHING AND RASH for 7 Days, #2 TAB Prov: EMILY JOHNSON APRN 04/21/21 Prednisone (Prednisone) 20 Mg Tab 40 MG PO DAILY, #6 TAB 0 Refills Prov: EMILY JOHNSON APRN 04/21/21 Copy Copies To 1: BELLA BAILEY PETER J APRN April 21, 2021 15:18
[2021-04-21 15:23] LABS: BASOPHILS # (AUTO) 0.1 10^3/uL (0.0-0.1); BASOPHILS % (AUTO) 1 % (0-10); EOSINOPHILS # (AUTO) 0.7 10^3/uL (0.0-0.3); EOSINOPHILS % (AUTO) 8 % (0-10); HEMATOCRIT 39 % (35-52); LYMPHOCYTES # (AUTO) 2.7 X 10^3 (1.0-4.0); LYMPHOCYTES % (AUTO) 32 % (12-44); MEAN CORPUSCULAR HEMOGLOBIN 30 pg (25-34); MEAN CORPUSCULAR HGB CONC 33 g/dL (32-36); MEAN CORPUSCULAR VOLUME 88 fL (80-99); MEAN PLATELET VOLUME 9.5 fL (9.0-12.2); MONOCYTES # (AUTO) 0.6 X 10^3 (0.0-1.0); MONOCYTES % (AUTO) 7 % (0-12); NEUTROPHILS # (AUTO) 4.3 X 10^3 (1.8-7.8); NEUTROPHILS % (AUTO) 51 % (42-75); PLATELET COUNT 285 10^3/uL (130-400); WHITE BLOOD COUNT 8.3 10^3/uL (4.3-11.0)
[2021-04-21 15:33] LABS: CALCIUM 9.5 MG/DL (8.5-10.1)
[2021-04-21] MEDS ORDERED: PRD20T PO ×2 (15:45→17:39)
[2021-04-21] MEDS ORDERED: LORA-404 PO ×2 (15:45→17:39)
[2021-04-21 15:52] VITALS: BP 144/57
== END 2021-04-21 15:53 | disposition home or self-care (01) ==
LOC: EDUNIT# 15:05 → ER 15:07
DX: L29.9 Pruritus, unspecified (principal); T36.8X5A Adverse effect of other systemic antibiotics, initial encounter; E11.9 Type 2 diabetes mellitus without complications; I10 Essential (primary) hypertension; J44.9 Chronic obstructive pulmonary disease, unspecified; G35 Multiple sclerosis; K21.9 Gastro-esophageal reflux disease without esophagitis; E03.9 Hypothyroidism, unspecified; Z99.81 Dependence on supplemental oxygen; F41.9 Anxiety disorder, unspecified; F32.9 Major depressive disorder, single episode, unspecified; M79.7 Fibromyalgia; G43.909 Migraine, unspecified, not intractable, without status migrainosus; Z87.891 Personal history of nicotine dependence; Z79.51 Long term (current) use of inhaled steroids; Z79.890 Hormone replacement therapy; Z79.52 Long term (current) use of systemic steroids; Z79.899 Other long term (current) drug therapy
CPT/HCPCS: 36415; 80048; 85025

== ENCOUNTER → 2021-07-29 | Outpatient (CLI) | payer MEDICAID ==
[~2021-07-29] MED LIST changes: +HOLD METFORMIN - RECEIVED CONTRAST 20 ML VIAL IV SCH; +IOHEXOL 350 MG/ML 100 ML (OMNIPAQUE 350) VIAL IV ONE; +LORA-404 PO; +NS 100 ML (IVPB) BAG IV ONE; -OMEP40CA27 PO; +OMEP40CA6 PO
[2021-07-29 16:58] LABS: CREATININE SERUM 0.88 MG/DL (0.60-1.30)
--- NOTE | 2021-07-29 17:56 | Diagnostic Imaging Report ---
PROCEDURE: CT neck soft tissue with contrast. TECHNIQUE: Multiple contiguous axial images were obtained through the neck after the administration of contrast. Auto Exposure Controls were utilized during the CT exam to meet ALARA standards for radiation dose reduction. INDICATION: Left parotid swelling. COMPARISON: None. FINDINGS: Multiple enhancing lesions in the left parotid gland, the largest measuring up to 1.9 x 1.4 cm. Asymmetrically prominent left level 1B lymph node measuring up to 0.8 cm in short axis dimension. Enlarged left jugulodigastric lymph node measures up to 1.3 cm in short axis dimension. Borderline left level 3 cervical lymph node measuring up to 0.9 cm in short axis dimension is asymmetrically prominent compared to the contralateral side. Similarly, there is a left level 5A lymph node measuring up to 0.9 cm in short axis dimension. No necrotic lymph nodes are identified. No right-sided lymphadenopathy. No mass or suspicious enhancement is seen within the pharynx or larynx. The floor of the mouth, tongue base, epiglottis and retropharyngeal space are unremarkable. No acute osseous findings. Mild spondylotic changes in the cervical spine. Visualized paranasal sinuses and mastoids are clear. The submandibular and right parotid glands are negative. Visualized intracranial contents are negative. IMPRESSION: Diffuse left-sided lymphadenopathy involving levels 1B, level 2, level 3 and level 5A. Most of the enhancing masses in the left superficial parotid gland are also consistent with lymphadenopathy. However, there is a more indeterminant irregular lobulated mass in the superior left parotid gland immediately anterior to the external auditory canal which measures up to 1.9 cm which could represent a primary neoplasm. MRI may be helpful for further evaluation. No suspicious mass or enhancement is seen within the pharynx or larynx. Dictated by: Dictated on workstation # [id number]
== END ==
LOC: RAD 16:45
PROVIDERS: ATTEND Otolaryngology Otolaryngology/Facial Plastic Surgery
DX: K11.8 Other diseases of salivary glands (principal); R59.0 Localized enlarged lymph nodes
CPT/HCPCS: 36415; 70491; 82565; 84520

== ENCOUNTER 2021-08-11 05:38 | Outpatient (CLI) | payer MEDICAID ==
[~2021-08-11] VITALS: Ht 162 cm; Wt 84.1 kg
[~2021-08-11 05:38] MED LIST changes: -HOLD METFORMIN - RECEIVED CONTRAST 20 ML VIAL IV SCH; -IOHEXOL 350 MG/ML 100 ML (OMNIPAQUE 350) VIAL IV ONE; -NS 100 ML (IVPB) BAG IV ONE
[2021-08-11] MEDS ORDERED: BUDE10.7 IH (12:08)
[2021-08-11] MEDS ORDERED: FLUO20CA46 PO (12:08)
[2021-08-11] MEDS ORDERED: TOPI100T11 PO (12:09)
[2021-08-11] MEDS ORDERED: LIRA3PEN SQ (12:09)
[2021-08-11] MEDS ORDERED: OXYGEN (12:10)
[2021-08-11 12:46] VITALS: BP 119/68
[2021-08-11 17:01] LABS: BASOPHILS # (AUTO) 0.1 10^3/uL (0.0-0.1); BASOPHILS % (AUTO) 1 % (0-10); EOSINOPHILS # (AUTO) 0.7 10^3/uL (0.0-0.3); EOSINOPHILS % (AUTO) 8 % (0-10); HEMATOCRIT 42 % (35-52); HEMOGLOBIN 13.4 g/dL (11.5-16.0); LYMPHOCYTES # (AUTO) 1.8 10^3/uL (1.0-4.0); LYMPHOCYTES % (AUTO) 22 % (12-44); MEAN CORPUSCULAR HEMOGLOBIN 30 pg (25-34); MEAN CORPUSCULAR HGB CONC 32 g/dL (32-36); MEAN CORPUSCULAR VOLUME 94 fL (80-99); MEAN PLATELET VOLUME 10.8 fL (9.0-12.2); MONOCYTES # (AUTO) 0.6 10^3/uL (0.0-1.0); MONOCYTES % (AUTO) 8 % (0-12); NEUTROPHILS # (AUTO) 4.8 10^3/uL (1.8-7.8); NEUTROPHILS % (AUTO) 61 % (42-75); PLATELET COUNT 223 10^3/uL (130-400); POTASSIUM 3.8 MMOL/L (3.6-5.0)
[2021-08-11 17:02] LABS: CALCIUM 9.4 MG/DL (8.5-10.1)
[2021-08-11 17:07] LABS: CREATININE SERUM 0.88 MG/DL (0.60-1.30)
== END 2021-08-11 13:01 ==
LOC: PREOP 05:38
PROVIDERS: ATTEND Otolaryngology Otolaryngology/Facial Plastic Surgery
DX: Z01.812 Encounter for preprocedural laboratory examination (principal); R59.0 Localized enlarged lymph nodes; Z11.2 Encounter for screening for other bacterial diseases
CPT/HCPCS: 36415; 80048; 85025; 87081

== ENCOUNTER 2021-08-15 07:34 | Day surgery (SDC) | payer MEDICAID ==
[~2021-08-15] VITALS: Ht 162 cm; Wt 84.1 kg
[2021-08-15] VITALS (11 sets, daily range): BP systolic 101–121; BP diastolic 45–79
[~2021-08-15 07:34] MED LIST changes: +BUDE10.7 IH; +LIRA3PEN SQ; +OXYGEN; +TOPI100T11 PO
[2021-08-15] MEDS ORDERED: LACTATED RINGERS 1,000 ML IV PRN (07:45)
--- NOTE | 2021-08-15 07:49 | Progress Note-Pre Operative ---
Pre-Operative Progress Note H&P Reviewed The H&P was reviewed, patient examined and no changes noted. Date Seen by Provider: Aug 15, 2021 Time Seen by Provider: 07:45 Date H&P Reviewed: Aug 15, 2021 Time H&P Reviewed: 07:45 Pre-Operative Diagnosis: Lympadenopathy, Left Parotid Gland, Left Neck RADHA CROW MD Aug 15, 2021 07:49
[2021-08-15] MEDS ORDERED: MUPIROCIN 2% OINT 22 GM (BACTROBAN) TUBE ONE (08:08)
[2021-08-15] MEDS ORDERED: LIDOCAINE/EPI 1%-1:100,000 (XYLOCAINE) 10 ML ONE (08:08)
--- NOTE | 2021-08-15 08:10 | Diagnostic Imaging Report ---
INDICATION: No chest complaints, preop COMPARISON: 04/24/2020 FINDINGS: Single view of the chest demonstrates stable prominent interstitial infiltrates. The heart is normal. Pulmonary arteries are prominent. There is no pneumothorax or effusion. Osseous structures normal. IMPRESSION: No acute cardiopulmonary findings. No interval change. Dictated by: Dictated on workstation # [id number]
--- NOTE | 2021-08-15 10:18 | Progress Note-Post Operative ---
Post-Operative Progess Note Surgeon (s)/Instructor [employer] (s) Surgeon RADHA CROW MD Instructor [employer] n/a Pre-Operative Diagnosis Lympadenopathy, Left Parotid Gland, Left Neck Post-Operative Diagnosis same Post-Op Procedure Note Date of Procedure: Aug 15, 2021 Name of Procedure Performed: Excisional Biopsy of Left Intraparotid Lymph node Description & Findings Description and Findings: n/a Anesthesia Type gen Estimated Blood Loss minimal Packing none. Specimen(s) collected/removed leftparotid lymph node fresh to pathology to treat as a possible lymphoma RADHA CROW MD Aug 15, 2021 10:18
[2021-08-15] MEDS ORDERED: MIDAZOLAM 2 MG/2 ML (VERSED) VIAL ONE (10:21)
[2021-08-15] MEDS ORDERED: LIDOCAINE PF 2% 5 ML (XYLOCAINE) VIAL ONE (10:30)
[2021-08-15] MEDS ORDERED: HYDROcodone/APAP 5 MG/325 MG (LORTAB) TAB PO PRN (10:30)
[2021-08-15] MEDS ORDERED: ACETAMINOPHEN 325 MG TABLET PO PRN (10:30)
[2021-08-15] MEDS ORDERED: proPOfol 200 MG/20 ML (DIPRIVAN) VIAL IV ONE (10:30)
[2021-08-15] MEDS ORDERED: SEVOFLURANE (ULTANE) 15 ML INHAL SOLN ONE (10:52)
[2021-08-15] MEDS ORDERED: ACHD5005 PO (11:06)
[2021-08-15] MEDS ORDERED: fentaNYL INJ 100 MCG/2 ML AMP IVP ONE (11:15)
== END 2021-08-15 12:45 | disposition home or self-care (01) ==
LOC: SDC 07:34
PROVIDERS: ATTEND Otolaryngology Otolaryngology/Facial Plastic Surgery
DX: C85.11 Unspecified B-cell lymphoma, lymph nodes of head, face, and neck (principal); R59.0 Localized enlarged lymph nodes; J45.909 Unspecified asthma, uncomplicated; J44.9 Chronic obstructive pulmonary disease, unspecified; K21.9 Gastro-esophageal reflux disease without esophagitis; E11.9 Type 2 diabetes mellitus without complications; E78.5 Hyperlipidemia, unspecified; F17.210 Nicotine dependence, cigarettes, uncomplicated; Z79.899 Other long term (current) drug therapy
CPT/HCPCS: 71045; 82947; 87081

== ENCOUNTER → 2021-08-26 | Outpatient (CLI) | payer MEDICAID ==
[~2021-08-26] MED LIST changes: +ACHD5005 PO
--- NOTE | 2021-08-26 13:33 | Anesthesia-General Post-Op ---
General Significant Intra-Op Events Notes late entry 08-15-21 at 1200 Patient Condition Mental Status/LOC: Same as Preop Cardiovascular: Satisfactory Nausea/Vomiting: Absent Respiratory: Satisfactory Pain: Controlled Complications: Absent Post Op Complications Complications None Follow Up Care/Instructions Patient Instructions None needed. Anesthesia/Patient Condition Patient Condition Patient is doing well, no complaints, stable vital signs, no apparent adverse anesthesia problems. No complications reported per nursing. FORD BANDA CRNA Aug 26, 2021 13:33
--- NOTE | 2021-08-26 15:19 | Diagnostic Imaging Report ---
INDICATION: B-cell lymphoma, initial staging. TECHNIQUE: Serum blood glucose level at the time of injection was 107 mg/dL. Patient was administered 15.8 mCi F-18 FDG intravenously, and PET imaging was performed from the top of the skull to mid thighs. Noncontrast CT was also performed for attenuation correction and anatomic correlation. COMPARISON: No prior PET/CT studies are available for comparison. FINDINGS: There is symmetric activity throughout the brain. There is a hypermetabolic lesion in the superior aspect of the left parotid gland with SUV max of 7.8. Numerous left neck hypermetabolic lymph nodes are present as well. There are hypermetabolic lymph nodes in the left submandibular region as well as the jugulodigastric region as well as the left posterior cervical chain and bilateral supraclavicular regions. The right-sided supraclavicular hypermetabolic node has SUV max of 9.7. Left-sided supraclavicular node shows SUV max 10.3. There is hypermetabolism along the right paratracheal location as well as throughout the remainder of the mediastinum in the AP window and prevascular space as well as subcarinal regions. There is bilateral hilar hypermetabolism. There is bilateral axillary hypermetabolism. There appears to be a hypermetabolic retrocrural lymph node on the right side. There are numerous hypermetabolic lesions in the central retroperitoneum. There is a hypermetabolic focus along the posterior aspect of the pancreatic body as well. There are numerous hypermetabolic foci in the hilum of the spleen, all likely hypermetabolic lymph nodes. There are some right common iliac hypermetabolic nodes. There are bilateral external iliac hypermetabolic nodes as well as right-sided and left-sided obturator lymph nodes. There are hypermetabolic lymph nodes in the inguinal regions bilaterally. IMPRESSION: Extensive hypermetabolic lymphadenopathy in the neck, chest, abdomen, and pelvis consistent with the patient's diagnosis of lymphoma. Dictated by: Dictated on workstation # [id number]
== END ==
LOC: RAD 11:15
PROVIDERS: ATTEND Otolaryngology Otolaryngology/Facial Plastic Surgery
DX: C83.30 Diffuse large B-cell lymphoma, unspecified site (principal)

== ENCOUNTER → 2021-08-27 | Outpatient (CLI) | payer MEDICAID | LOC: CARD 14:00 | PROVIDERS: ATTEND Otolaryngology Otolaryngology/Facial Plastic Surgery | DX: C83.31 Diffuse large B-cell lymphoma, lymph nodes of head, face, and neck (principal); J44.9 Chronic obstructive pulmonary disease, unspecified | CPT/HCPCS: 93306 ==

== ENCOUNTER 2021-09-03 09:26 | Outpatient (CLI) | payer MEDICAID ==
[~2021-09-03] VITALS: Ht 162.6 cm; Wt 83.5 kg
== END 2021-09-03 09:40 ==
LOC: PREOP 09:26
PROVIDERS: ATTEND Surgery
DX: Z01.818 Encounter for other preprocedural examination (principal)

== ENCOUNTER 2021-09-04 12:22 | Day surgery (SDC) | payer MEDICAID ==
[~2021-09-04] VITALS: Ht 162 cm; Wt 83.5 kg
[2021-09-04] VITALS (9 sets, daily range): BP systolic 108–136; BP diastolic 56–75
[2021-09-04] MEDS ORDERED: ONDANSETRON 4 MG/2 ML (SDV) Z0FRAN IV ONE (12:45)
[2021-09-04] MEDS ORDERED: FAMOTIDINE 20MG/2ML IV (PEPCID) IV ONE (12:45)
--- NOTE | 2021-09-04 12:52 | Progress Note-Pre Operative ---
Pre-Operative Progress Note H&P Reviewed The H&P was reviewed, patient examined and no changes noted. Date Seen by Provider: Sep 04, 2021 Time Seen by Provider: 12:30 Date H&P Reviewed: Sep 04, 2021 Time H&P Reviewed: 12:30 Pre-Operative Diagnosis: lymphoma VERA LEBLANC MD Sep 04, 2021 12:52
--- NOTE | 2021-09-04 12:54 | Discharge Inst-Surgical ---
D/C Lap Instructions-DEANA Follow Up PRN ok to access and use port. Activity as tolerated Regular Diet Symptoms to Report: Fever over 101 degree F, Nausea/Vomiting Infection Signs and Symptoms to report: Increased redness, Foul odor of wound, Increased drainage Bathing instructions: May shower Operative Area Clean/Dry; Keep incision clean/dry If any problems/questions: Contact your physician or go to Emergency Room VERA LEBLANC MD Sep 04, 2021 12:54
[2021-09-04] MEDS ORDERED: ONDANSETRON 4 MG/2 ML (SDV) Z0FRAN IVP PRN ×2 (13:00→15:45)
[2021-09-04] MEDS ORDERED: fentaNYL INJ 100 MCG/2 ML AMP IVP PRN (13:00)
[2021-09-04] MEDS ORDERED: ACETAMINOPHEN 325 MG TABLET PO PRN (13:00)
[2021-09-04] MEDS ORDERED: oxyCODONE/APAP 5/325MG (PERCOCET 5) TABLET PO PRN (13:00)
[2021-09-04] MEDS ORDERED: PROPOFOL INJECTION 50 ML IV ONE (13:06)
[2021-09-04] MEDS ORDERED: fentaNYL INJ 100 MCG/2 ML AMP ONE (13:06)
[2021-09-04] MEDS ORDERED: MIDAZOLAM 2 MG/2 ML (VERSED) VIAL ONE (13:07)
[2021-09-04] MEDS ORDERED: ceFAZolin 2 GM IV Premixed 50 ML ONE (13:15)
[2021-09-04] MEDS ORDERED: LACTATED RINGERS 1,000 ML IV PRN (13:15)
[2021-09-04] MEDS ORDERED: ceFAZolin 2 GM IV Premixed 50 ML IV ONE (13:15)
[2021-09-04] MEDS ORDERED: 0.9% SODIUM CHLORIDE PF INJ 20 ML VIAL ONE (13:43)
[2021-09-04] MEDS ORDERED: HEParin (CENTRAL IV FLUSH) 500 UNIT/5 ML SYR ONE (13:44)
[2021-09-04] MEDS ORDERED: LIDOCAINE/EPI 1%-1:200,000 (XYLOCAINE) 30 ML VIAL ONE (13:44)
[2021-09-04] MEDS ORDERED: KETAMINE SYRINGE 50 MG/5 ML SYRINGE ONE (14:10)
[2021-09-04] MEDS ORDERED: LIDOCAINE PF 2% 5 ML (XYLOCAINE) VIAL ONE (14:10)
[2021-09-04] MEDS ORDERED: proPOfol 200 MG/20 ML (DIPRIVAN) VIAL IV ONE (15:18)
--- NOTE | 2021-09-04 15:23 | Progress Note-Post Operative ---
Post-Operative Progess Note Surgeon (s)/Teenage Babysitter (s) Surgeon VERA LEBLANC MD Teenage Babysitter: angie sood PELLET PREPARATION OPERATOR Pre-Operative Diagnosis lymphoma Post-Operative Diagnosis same Procedure & Operative Findings Date of Procedure 09/04/21 Procedure Performed/Findings right subclavian groshong implantable catheter under flouroscopy Anesthesia Type mac with local Estimated Blood Loss Estimated blood loss (mL): minimal Specimens/Packing Specimens Removed none VERA LEBLANC MD Sep 04, 2021 15:23
[2021-09-04] MEDS ORDERED: RT-ALBUTEROL SULF 2.5 MG/3 ML PRE-MIX VIAL ONE (15:38)
[2021-09-04] MEDS ORDERED: RT-ALBUTEROL SULF 2.5 MG/3 ML PRE-MIX VIAL INH ONE (15:45)
--- NOTE | 2021-09-04 15:51 | Anesthesia-General Post-Op ---
MAC Patient Condition Mental Status/LOC: Same as Preop Cardiovascular: Satisfactory Nausea/Vomiting: Absent Respiratory: Satisfactory Pain: Controlled Complications: Absent Post Op Complications Complications None Follow Up Care/Instructions Patient Instructions None needed. Anesthesiology Discharge Order Discharge Order Patient is doing well, no complaints, stable vital signs, no apparent adverse anesthesia problems. She was wheezing on PACU arrival so an albuterol nebulizer treatment was ordered. She states she feels like she is breathing better now. Post-op CXR just taken. JAH GARCIA DO Sep 04, 2021 15:51
--- NOTE | 2021-09-04 15:51 | OPERATIVE REPORT ---
DATE OF SERVICE: 09/04/2021 ATTENDING PRIMARY CARE PHYSICIAN: Dr. Vika Renteria. PREOPERATIVE DIAGNOSIS: Large B-cell lymphoma. POSTOPERATIVE DIAGNOSIS: Large B-cell lymphoma. PROCEDURE: Placement of right subclavian Groshong implantable catheter under fluoroscopy. SURGEON: Babita Leblanc MD. ROAD CREW MEMBER: Glenn Sutton APRN. ANESTHESIA: Monitored anesthesia care with local. ESTIMATED BLOOD LOSS: Minimal. FINDINGS: Catheter tip at superior vena caval-right atrial junction. DISPOSITION: The patient tolerated the procedure well. INDICATIONS: The patient is a 60-year-old female who noticed significant lymphadenopathy as well as weakness. She then underwent a biopsy, which came back as a large B cell lymphoma. She also underwent a PET scan and this disease was diffuse. She will need to undergo chemotherapy and will require a Groshong implantable catheter. DESCRIPTION OF PROCEDURE: The chest and neck were prepped and draped in standard surgical fashion. An attempt was made at the left subclavian vein; however, the guidewire would not pass through the midline under fluoroscopy. The right subclavian region was then anesthetized using 1% lidocaine with epinephrine. The right subclavian vein was cannulated with drawing of venous blood. The guidewire was inserted under fluoroscopy without any resistance. The cannulating needle removed and a skin incision made using a 15 blade. The dilator and sheath were then introduced over the guidewire and the dilator and guidewire were then removed and the Groshong catheter was placed through the sheath until the catheter tip was at the superior vena caval-right atrial junction. The sheath was then removed. The inner wire within the catheter was then removed. The catheter cut down to size and port placed onto the catheter. The chest reservoir was then created by extending the skin incision laterally and a plane created between the subcutaneous fat and the anterior pectoralis fascia using blunt dissection as well as electrocautery. The port was then placed into the reservoir and sutured to the anterior pectoralis fascia using interrupted 3-0 Vicryl sutures. The subcutaneous tissue was then reapproximated using 3-0 Vicryl interrupted sutures. Skin was closed using 4-0 Monocryl running subcuticular suture. Wound was then cleaned and covered with Dermabond. The port was then accessed withdrawing the venous blood and saline pushed in without any resistance. The patient tolerated the procedure well. We will get a post-procedure chest x-ray once confirmation of placement of the port. The port may be accessed and used any time. Job ID: [id number] DocumentID: [id number] Dictated Date: 09/04/2021 15:29:55 Grad Intern Date: 09/04/2021 15:50:41 Dictated By: BABITA LEBLANC MD
--- NOTE | 2021-09-04 16:17 | Diagnostic Imaging Report ---
INDICATION: Status post Port-A-Cath placement. COMPARISON: 08/15/2021. FINDINGS: Single frontal radiographic view of the chest was obtained and demonstrates interval placement of right subclavian Port-A-Cath. Central tip terminates in the low SVC. There is no pneumothorax on the right. However, there is apical pneumothorax on the left. It is estimated at approximately 15%. Small amount of soft tissue emphysema is also present over the left apex. Note is also made of interval increase in interstitial opacities of the right upper lung. There is no pleural effusion. Cardiac silhouette is within normal limits. IMPRESSION: 1. Interval development of small left apical pneumothorax. 2. Interval placement of right subclavian Port-A-Cath. No pneumothorax is seen on the right. 3. Interval increase in interstitial opacities of the right upper lung. Findings could be on the basis of developing infiltrate. Follow-up is advised. Report was called to nurse Pérez in the office of Dr. Billings at 4:1212 p.m., by natalie. Dictated by: Dictated on workstation # [id number]
--- NOTE | 2021-09-04 16:27 | Diagnostic Imaging Report ---
INDICATION: History of lymphoma. Need for long-term central venous access. COMPARISON: None. TOTAL FLUOROSCOPY TIME: 192 seconds. TOTAL NUMBER OF FLUOROSCOPIC IMAGES SAVED: 1. FINDINGS: Single intraoperative image intensifier view of the right chest was obtained during Central catheter placement. Image provided shows right subclavian venous approach with central tip near the cavoatrial junction. Evaluation for pneumothorax is suboptimal given fluoroscopic modality. Please note, interpreting radiologist was not present during the procedure. IMPRESSION: Fluoroscopic guidance provided during central venous catheter placement. Dictated by: Dictated on workstation # [id number]
== END 2021-09-04 16:45 ==
LOC: SDC 12:22
PROVIDERS: ATTEND Surgery
DX: C83.30 Diffuse large B-cell lymphoma, unspecified site (principal); I10 Essential (primary) hypertension; E78.5 Hyperlipidemia, unspecified; J45.909 Unspecified asthma, uncomplicated; J44.9 Chronic obstructive pulmonary disease, unspecified; E03.9 Hypothyroidism, unspecified; E66.9 Obesity, unspecified; K21.9 Gastro-esophageal reflux disease without esophagitis; M79.7 Fibromyalgia; E11.9 Type 2 diabetes mellitus without complications; G35 Multiple sclerosis; G89.4 Chronic pain syndrome; G62.9 Polyneuropathy, unspecified; G43.909 Migraine, unspecified, not intractable, without status migrainosus; F41.9 Anxiety disorder, unspecified; F32.9 Major depressive disorder, single episode, unspecified; Z68.31 Body mass index [BMI] 31.0-31.9, adult; Z86.73 Personal history of transient ischemic attack (TIA), and cerebral infarction without residual deficits; Z79.890 Hormone replacement therapy; Z79.891 Long term (current) use of opiate analgesic; Z79.899 Other long term (current) drug therapy; Z85.41 Personal history of malignant neoplasm of cervix uteri; Z80.1 Family history of malignant neoplasm of trachea, bronchus and lung; Z80.0 Family history of malignant neoplasm of digestive organs; Z80.3 Family history of malignant neoplasm of breast
CPT/HCPCS: 71045; 76000; 87081

== ENCOUNTER → 2021-09-08 | Outpatient (CLI) | payer MEDICAID ==
--- NOTE | 2021-09-08 16:38 | Diagnostic Imaging Report ---
INDICATION: Left pneumothorax followup. TECHNIQUE/COMPARISON: Two views of the chest were obtained. A prior CT from 04/25/2020 is available for comparison. FINDINGS: The heart size and vascularity are normal. There is some basilar hyperexpansion, consistent with COPD. No mass or infiltrate is seen. There is a left apical pneumothorax with separation of the lung from the apex of approximately 3 cm, consistent with a 5-10% pneumothorax, with no evidence of tension. There is no pneumothorax on the right. A Port-A-Cath is present. IMPRESSION: Left-sided pneumothorax. Recommend followup. Dictated by: Dictated on workstation # [id number]
== END ==
LOC: RAD 15:46
PROVIDERS: ATTEND Surgery
DX: J93.9 Pneumothorax, unspecified (principal)
CPT/HCPCS: 71046

== ENCOUNTER → 2021-09-15 | Outpatient (CLI) | payer MEDICAID ==
--- NOTE | 2021-09-15 15:55 | Diagnostic Imaging Report ---
INDICATION: LT PNEUMOTHORAX F/U. COMPARISON: 09/08/2021. FINDINGS: Frontal and lateral views of the chest demonstrate normal heart size and pulmonary vascularity. The lungs are clear. Left-sided pneumothorax has since resolved. There is no large effusion or pneumothorax on either side. The visualized osseous structures show no acute abnormalities. Right-sided Port-A-Cath is identified with tip in the SVC. IMPRESSION: Interval resolution of left-sided pneumothorax. No acute cardiopulmonary process. Dictated by: Dictated on workstation # [id number]
== END ==
LOC: RAD 15:09
PROVIDERS: ATTEND Surgery
DX: J93.9 Pneumothorax, unspecified (principal)
CPT/HCPCS: 71046

== ENCOUNTER → 2021-09-15 | Outpatient (CLI) | payer MEDICAID | LOC: RAD | PROVIDERS: ATTEND Surgery ==

== ENCOUNTER → 2021-11-05 | Outpatient (CLI) | payer MEDICAID ==
[~2021-11-05] MED LIST changes: +CATHETER FLUSH 10 ML SYR IV PRN; +CYCL10TA25 PO; -CYCL10TA9 PO; -FLUO20CA46 PO; +FLUO20CA48 PO; +HOLD METFORMIN - RECEIVED CONTRAST 20 ML VIAL IV SCH; +IOHEXOL 350 MG/ML 100 ML (OMNIPAQUE 350) VIAL IV ONE; +NS 100 ML (IVPB) BAG IV ONE
--- NOTE | 2021-11-05 11:57 | Diagnostic Imaging Report ---
PROCEDURE: CT Neck, Chest Abdomen and Pelvis with contrast, Abdomen and Pelvis without. TECHNIQUE: Multiple contiguous axial images were obtained through the neck, chest, abdomen, and pelvis after the uneventful bolus administration of intravenous contrast. Precontrast acquisitions through the abdomen and pelvis were performed. Sagittal and coronal reformations are then performed. Auto Exposure Controls were utilized during the CT exam to meet ALARA standards for radiation dose reduction. INDICATION: Non-Hodgkin's lymphoma. Patient currently on chemotherapy. CT NECK: Good opacification of the vessels. The extensive cervical chain adenopathy as well as adenopathy within the left parotid gland has shown marked decrease in size. The largest lymph node on today's exam is 9 mm anterior to the carotid artery and posterior to the left submandibular gland. This previously measured 1.8 cm. The parotid gland now appears normal. Submandibular glands are normal. The parapharyngeal tissue planes are normal. No bony abnormalities. IMPRESSION: There has been marked clearing of cervical lymphadenopathy and left parotid adenopathy with all lymph nodes now well less than [address] chest: No supraclavicular lymphadenopathy is now present. The cervical vessels well-opacified as well as the aortic arch and pulmonary arteries. Aorta is atherosclerotic. No lymphadenopathy of pathologic size now present in the mediastinum or hilum. Largest lymph node measures approximately 1 cm. The lungs are well aerated. There is chronic interstitial lung disease again noted bilaterally. No acute infiltrates have developed. No parenchymal masses. No pleural effusions or pericardial effusion. IMPRESSION: There has been complete resolution of lymphadenopathy since previous exam. CT abdomen and pelvis: Fatty changes of the liver with mild hepatomegaly. Gallbladder is absent. Bile ducts are not dilated. Pancreas and spleen are normal. The adrenal glands are not enlarged. The kidneys show a simple cyst off the lower pole on the left. There are no renal masses. Good opacification of the aorta and abdominal vessels. There is atherosclerotic disease of the aorta without evidence of aneurysm. Oral contrast in the stomach and small bowel appears normal. There is moderate amount of stool in the colon throughout from the cecum to the rectum. Bladder is nondistended. No pelvic masses. Uterus is absent. No residual intra-abdominal adenopathy is seen when compared with previous exam. Largest lymph nodes are less than 1 cm today in the retroperitoneal region. Inguinal adenopathy has decreased significantly in size bilaterally. Largest lymph node is now in the right measuring 1.7 cm. Sagittal reformatted images show good alignment of the cervical, thoracic and lumbar spine. Body heights well-maintained. No marrow lesions are seen. IMPRESSION: There has been clearing of the intra-abdominal adenopathy since previous exam. The largest inguinal lymph node on the right measures 1.7 cm today. This previously measured 3.7 cm. Dictated by: Dictated on workstation # [id number]
== END ==
LOC: RAD 10:45
PROVIDERS: ATTEND Internal Medicine Hematology & Oncology
DX: K76.0 Fatty (change of) liver, not elsewhere classified (principal); N28.1 Cyst of kidney, acquired; I70.0 Atherosclerosis of aorta; C83.30 Diffuse large B-cell lymphoma, unspecified site; Z90.49 Acquired absence of other specified parts of digestive tract; Z90.711 Acquired absence of uterus with remaining cervical stump
CPT/HCPCS: 70491; 71260; 74178

== ENCOUNTER 2021-11-17 14:33 | Outpatient (RCR) | payer MEDICAID ==
[2021-09-01 14:22] LABS: BASOPHILS # (AUTO) 0.1 10^3/uL (0.0-0.1); BASOPHILS % (AUTO) 1 % (0-10); EOSINOPHILS # (AUTO) 1.1 10^3/uL (0.0-0.3); EOSINOPHILS % (AUTO) 11 % (0-10); HEMATOCRIT 42 % (35-52); HEMOGLOBIN 13.4 g/dL (11.5-16.0); LYMPHOCYTES # (AUTO) 2.3 10^3/uL (1.0-4.0); LYMPHOCYTES % (AUTO) 23 % (12-44); MEAN CORPUSCULAR HEMOGLOBIN 30 pg (25-34); MEAN CORPUSCULAR HGB CONC 32 g/dL (32-36); MEAN CORPUSCULAR VOLUME 92 fL (80-99); MEAN PLATELET VOLUME 9.8 fL (9.0-12.2); MONOCYTES # (AUTO) 0.7 10^3/uL (0.0-1.0); MONOCYTES % (AUTO) 7 % (0-12); NEUTROPHILS # (AUTO) 5.9 10^3/uL (1.8-7.8); NEUTROPHILS % (AUTO) 58 % (42-75); PLATELET COUNT 272 10^3/uL (130-400); WHITE BLOOD COUNT 10.1 10^3/uL (4.3-11.0)
[2021-09-01 14:43] LABS: ALBUMIN 3.9 GM/DL (3.2-4.5); BILIRUBIN,TOTAL 0.3 MG/DL (0.1-1.0); CALCIUM 10.1 MG/DL (8.5-10.1); POTASSIUM 4.2 MMOL/L (3.6-5.0); TOTAL PROTEIN 7.3 GM/DL (6.4-8.2)
[2021-09-01 15:10] LABS: URIC ACID 4.9 MG/DL (2.6-7.2)
[2021-09-01 21:01] LABS: HEPATITIS C ANTIBODY C Non-Reactive (Non-Reactive)
[2021-09-08 10:36] LABS: ALBUMIN 3.6 GM/DL (3.2-4.5); BILIRUBIN,TOTAL 0.2 MG/DL (0.1-1.0); CREATININE SERUM 0.79 MG/DL (0.60-1.30); MAGNESIUM 1.9 MG/DL (1.6-2.4); POTASSIUM 3.8 MMOL/L (3.6-5.0); TOTAL PROTEIN 6.6 GM/DL (6.4-8.2)
[2021-09-15 14:37] LABS: BASOPHILS % (AUTO) 0 % (0-10); EOSINOPHILS # (AUTO) 1.1 10^3/uL (0.0-0.3); EOSINOPHILS % (AUTO) 6 % (0-10); HEMATOCRIT 42 % (35-52); HEMOGLOBIN 13.5 g/dL (11.5-16.0); LYMPHOCYTES # (AUTO) 4.9 X 10^3 (1.0-4.0); LYMPHOCYTES % (AUTO) 27 % (12-44); MEAN CORPUSCULAR HEMOGLOBIN 30 pg (25-34); MEAN CORPUSCULAR HGB CONC 32 g/dL (32-36); MEAN CORPUSCULAR VOLUME 92 fL (80-99); MEAN PLATELET VOLUME 8.7 fL (9.0-12.2); MONOCYTES # (AUTO) 1.5 X 10^3 (0.0-1.0); MONOCYTES % (AUTO) 9 % (0-12); NEUTROPHILS # (AUTO) 10.1 X 10^3 (1.8-7.8); NEUTROPHILS % (AUTO) 56 % (42-75); PLATELET COUNT 350 10^3/uL (130-400)
[2021-09-15 15:16] LABS: CALCIUM 10.1 MG/DL (8.5-10.1); CREATININE SERUM 0.98 MG/DL (0.60-1.30); MAGNESIUM 1.9 MG/DL (1.6-2.4); POTASSIUM 4.5 MMOL/L (3.6-5.0); URIC ACID 3.8 MG/DL (2.6-7.2)
[2021-09-22 14:41] LABS: BASOPHILS # (AUTO) 0.1 10^3/uL (0.0-0.1); BASOPHILS % (AUTO) 1 % (0-10); EOSINOPHILS # (AUTO) 0.1 10^3/uL (0.0-0.3); EOSINOPHILS % (AUTO) 1 % (0-10); HEMATOCRIT 37 % (35-52); LYMPHOCYTES # (AUTO) 2.6 X 10^3 (1.0-4.0); LYMPHOCYTES % (AUTO) 24 % (12-44); MEAN CORPUSCULAR HEMOGLOBIN 30 pg (25-34); MEAN CORPUSCULAR HGB CONC 32 g/dL (32-36); MEAN CORPUSCULAR VOLUME 93 fL (80-99); MEAN PLATELET VOLUME 8.9 fL (9.0-12.2); MONOCYTES # (AUTO) 0.6 X 10^3 (0.0-1.0); MONOCYTES % (AUTO) 6 % (0-12); NEUTROPHILS # (AUTO) 7.1 X 10^3 (1.8-7.8); NEUTROPHILS % (AUTO) 67 % (42-75); PLATELET COUNT 266 10^3/uL (130-400); WHITE BLOOD COUNT 10.6 10^3/uL (4.3-11.0)
[2021-09-22 14:56] LABS: CALCIUM 8.7 MG/DL (8.5-10.1); CREATININE SERUM 0.73 MG/DL (0.60-1.30); MAGNESIUM 2.1 MG/DL (1.6-2.4); POTASSIUM 3.5 MMOL/L (3.6-5.0)
[2021-09-29 11:29] LABS: BASOPHILS # (AUTO) 0.1 10^3/uL (0.0-0.1); BASOPHILS % (AUTO) 1 % (0-10); EOSINOPHILS # (AUTO) 0.2 10^3/uL (0.0-0.3); EOSINOPHILS % (AUTO) 2 % (0-10); HEMATOCRIT 37 % (35-52); LYMPHOCYTES # (AUTO) 3.5 10^3/uL (1.0-4.0); LYMPHOCYTES % (AUTO) 39 % (12-44); MEAN CORPUSCULAR HEMOGLOBIN 30 pg (25-34); MEAN CORPUSCULAR HGB CONC 32 g/dL (32-36); MEAN CORPUSCULAR VOLUME 93 fL (80-99); MEAN PLATELET VOLUME 8.8 fL (9.0-12.2); MONOCYTES # (AUTO) 0.9 10^3/uL (0.0-1.0); MONOCYTES % (AUTO) 10 % (0-12); NEUTROPHILS # (AUTO) 4.4 10^3/uL (1.8-7.8); NEUTROPHILS % (AUTO) 49 % (42-75); PLATELET COUNT 365 10^3/uL (130-400)
[2021-09-29 11:44] LABS: ALBUMIN 3.9 GM/DL (3.2-4.5); BILIRUBIN,TOTAL 0.1 MG/DL (0.1-1.0); CALCIUM 9.2 MG/DL (8.5-10.1); CREATININE SERUM 0.79 MG/DL (0.60-1.30); TOTAL PROTEIN 7.1 GM/DL (6.4-8.2); URIC ACID 3.1 MG/DL (2.6-7.2)
[2021-10-06 15:15] LABS: BASOPHILS # (AUTO) 0.1 10^3/uL (0.0-0.1); BASOPHILS % (AUTO) 0 % (0-10); EOSINOPHILS # (AUTO) 0.6 10^3/uL (0.0-0.3); EOSINOPHILS % (AUTO) 3 % (0-10); HEMATOCRIT 38 % (35-52); HEMOGLOBIN 12.3 g/dL (11.5-16.0); LYMPHOCYTES # (AUTO) 4.7 10^3/uL (1.0-4.0); LYMPHOCYTES % (AUTO) 24 % (12-44); MEAN CORPUSCULAR HEMOGLOBIN 30 pg (25-34); MEAN CORPUSCULAR HGB CONC 32 g/dL (32-36); MEAN CORPUSCULAR VOLUME 93 fL (80-99); MEAN PLATELET VOLUME 8.9 fL (9.0-12.2); MONOCYTES # (AUTO) 1.3 10^3/uL (0.0-1.0); MONOCYTES % (AUTO) 6 % (0-12); NEUTROPHILS # (AUTO) 12.6 10^3/uL (1.8-7.8); NEUTROPHILS % (AUTO) 64 % (42-75); PLATELET COUNT 305 10^3/uL (130-400); WHITE BLOOD COUNT 19.8 10^3/uL (4.3-11.0)
[2021-10-06 15:34] LABS: CALCIUM 9.6 MG/DL (8.5-10.1); CREATININE SERUM 0.82 MG/DL (0.60-1.30); POTASSIUM 4.3 MMOL/L (3.6-5.0)
[2021-10-13 15:18] LABS: BASOPHILS # (AUTO) 0.1 10^3/uL (0.0-0.1); BASOPHILS % (AUTO) 1 % (0-10); EOSINOPHILS # (AUTO) 0.2 10^3/uL (0.0-0.3); EOSINOPHILS % (AUTO) 2 % (0-10); HEMATOCRIT 38 % (35-52); HEMOGLOBIN 12.8 g/dL (11.5-16.0); LYMPHOCYTES # (AUTO) 2.9 10^3/uL (1.0-4.0); LYMPHOCYTES % (AUTO) 26 % (12-44); MEAN CORPUSCULAR HEMOGLOBIN 30 pg (25-34); MEAN CORPUSCULAR HGB CONC 33 g/dL (32-36); MEAN CORPUSCULAR VOLUME 91 fL (80-99); MEAN PLATELET VOLUME 9.3 fL (9.0-12.2); MONOCYTES # (AUTO) 0.7 10^3/uL (0.0-1.0); MONOCYTES % (AUTO) 6 % (0-12); NEUTROPHILS # (AUTO) 7.3 10^3/uL (1.8-7.8); NEUTROPHILS % (AUTO) 64 % (42-75); PLATELET COUNT 254 10^3/uL (130-400); WHITE BLOOD COUNT 11.4 10^3/uL (4.3-11.0)
[2021-10-13 15:39] LABS: CALCIUM 9.7 MG/DL (8.5-10.1); CREATININE SERUM 0.88 MG/DL (0.60-1.30); POTASSIUM 4.1 MMOL/L (3.6-5.0)
[2021-10-20 13:29] LABS: BASOPHILS # (AUTO) 0.1 10^3/uL (0.0-0.1); BASOPHILS % (AUTO) 1 % (0-10); EOSINOPHILS # (AUTO) 0.2 10^3/uL (0.0-0.3); EOSINOPHILS % (AUTO) 3 % (0-10); HEMATOCRIT 37 % (35-52); HEMOGLOBIN 12.1 g/dL (11.5-16.0); LYMPHOCYTES # (AUTO) 3.3 10^3/uL (1.0-4.0); LYMPHOCYTES % (AUTO) 33 % (12-44); MEAN CORPUSCULAR HEMOGLOBIN 30 pg (25-34); MEAN CORPUSCULAR HGB CONC 33 g/dL (32-36); MEAN CORPUSCULAR VOLUME 92 fL (80-99); MEAN PLATELET VOLUME 9.1 fL (9.0-12.2); MONOCYTES # (AUTO) 0.8 10^3/uL (0.0-1.0); MONOCYTES % (AUTO) 9 % (0-12); NEUTROPHILS # (AUTO) 5.3 10^3/uL (1.8-7.8); NEUTROPHILS % (AUTO) 54 % (42-75); PLATELET COUNT 357 10^3/uL (130-400); WHITE BLOOD COUNT 9.7 10^3/uL (4.3-11.0)
[2021-10-20 13:50] LABS: ALBUMIN 3.9 GM/DL (3.2-4.5); BILIRUBIN,TOTAL 0.2 MG/DL (0.1-1.0); CALCIUM 8.7 MG/DL (8.5-10.1); CREATININE SERUM 0.83 MG/DL (0.60-1.30); POTASSIUM 3.9 MMOL/L (3.6-5.0); TOTAL PROTEIN 6.7 GM/DL (6.4-8.2)
[2021-10-27 15:39] LABS: BASOPHILS # (AUTO) 0.1 10^3/uL (0.0-0.1); BASOPHILS % (AUTO) 0 % (0-10); EOSINOPHILS # (AUTO) 0.7 10^3/uL (0.0-0.3); EOSINOPHILS % (AUTO) 4 % (0-10); HEMATOCRIT 38 % (35-52); LYMPHOCYTES # (AUTO) 4.4 10^3/uL (1.0-4.0); LYMPHOCYTES % (AUTO) 22 % (12-44); MEAN CORPUSCULAR HEMOGLOBIN 30 pg (25-34); MEAN CORPUSCULAR HGB CONC 32 g/dL (32-36); MEAN CORPUSCULAR VOLUME 95 fL (80-99); MEAN PLATELET VOLUME 8.8 fL (9.0-12.2); MONOCYTES # (AUTO) 1.4 10^3/uL (0.0-1.0); MONOCYTES % (AUTO) 7 % (0-12); NEUTROPHILS # (AUTO) 13.2 10^3/uL (1.8-7.8); NEUTROPHILS % (AUTO) 65 % (42-75); PLATELET COUNT 258 10^3/uL (130-400); WHITE BLOOD COUNT 20.2 10^3/uL (4.3-11.0)
[2021-10-27 15:58] LABS: CALCIUM 9.1 MG/DL (8.5-10.1); CREATININE SERUM 0.9 MG/DL (0.60-1.30); POTASSIUM 4.1 MMOL/L (3.6-5.0)
[2021-11-03 15:35] LABS: BASOPHILS # (AUTO) 0.1 10^3/uL (0.0-0.1); BASOPHILS % (AUTO) 1 % (0-10); EOSINOPHILS # (AUTO) 0.2 10^3/uL (0.0-0.3); EOSINOPHILS % (AUTO) 2 % (0-10); HEMATOCRIT 37 % (35-52); HEMOGLOBIN 11.8 g/dL (11.5-16.0); LYMPHOCYTES # (AUTO) 3.4 X 10^3 (1.0-4.0); LYMPHOCYTES % (AUTO) 28 % (12-44); MEAN CORPUSCULAR HEMOGLOBIN 30 pg (25-34); MEAN CORPUSCULAR HGB CONC 32 g/dL (32-36); MEAN CORPUSCULAR VOLUME 94 fL (80-99); MONOCYTES # (AUTO) 0.7 X 10^3 (0.0-1.0); MONOCYTES % (AUTO) 6 % (0-12); NEUTROPHILS # (AUTO) 7.8 X 10^3 (1.8-7.8); NEUTROPHILS % (AUTO) 64 % (42-75); PLATELET COUNT 301 10^3/uL (130-400); WHITE BLOOD COUNT 12.2 10^3/uL (4.3-11.0)
[2021-11-03 15:49] LABS: CALCIUM 8.8 MG/DL (8.5-10.1); CREATININE SERUM 0.88 MG/DL (0.60-1.30); POTASSIUM 3.9 MMOL/L (3.6-5.0)
[2021-11-10 10:05] LABS: BASOPHILS # (AUTO) 0.1 10^3/uL (0.0-0.1); BASOPHILS % (AUTO) 1 % (0-10); EOSINOPHILS # (AUTO) 0.2 10^3/uL (0.0-0.3); EOSINOPHILS % (AUTO) 2 % (0-10); HEMATOCRIT 37 % (35-52); HEMOGLOBIN 11.9 g/dL (11.5-16.0); LYMPHOCYTES # (AUTO) 2.7 10^3/uL (1.0-4.0); LYMPHOCYTES % (AUTO) 29 % (12-44); MEAN CORPUSCULAR HEMOGLOBIN 31 pg (25-34); MEAN CORPUSCULAR HGB CONC 32 g/dL (32-36); MEAN CORPUSCULAR VOLUME 95 fL (80-99); MEAN PLATELET VOLUME 9.2 fL (9.0-12.2); MONOCYTES % (AUTO) 10 % (0-12); NEUTROPHILS # (AUTO) 5.2 10^3/uL (1.8-7.8); NEUTROPHILS % (AUTO) 57 % (42-75); PLATELET COUNT 384 10^3/uL (130-400); WHITE BLOOD COUNT 9.2 10^3/uL (4.3-11.0)
[2021-11-10 10:25] LABS: ALBUMIN 3.9 GM/DL (3.2-4.5); BILIRUBIN,TOTAL 0.2 MG/DL (0.1-1.0); CALCIUM 8.9 MG/DL (8.5-10.1); CREATININE SERUM 0.79 MG/DL (0.60-1.30); POTASSIUM 3.8 MMOL/L (3.6-5.0); TOTAL PROTEIN 7.1 GM/DL (6.4-8.2); URIC ACID 4.3 MG/DL (2.6-7.2)
[~2021-11-17] VITALS: Ht 162.6 cm; Wt 84.8 kg
[~2021-11-17 14:33] MED LIST changes: +ACETAMINOPHEN 325 MG TAB (TYLENOL) CANCER CTR PO PRN; -CATHETER FLUSH 10 ML SYR IV PRN; +CYCLOPHOSPHAMIDE INJECTION 800 MG in NS (IVPB) CANCER CENTER 250 ML IV SCH; +FOSAPREPITANT (CANCER CENTER) 150 MG in NS (IVPB) CANCER CENTER ONLY 150 ML IV SCH; -HOLD METFORMIN - RECEIVED CONTRAST 20 ML VIAL IV SCH; -IOHEXOL 350 MG/ML 100 ML (OMNIPAQUE 350) VIAL IV ONE; -NS 100 ML (IVPB) BAG IV ONE; +NS IV 1000 ML (CANCER CTR) IV SCH; +PEGFILGRASTIM-BMEZ 6 MG/0.6 ML ZIEXTENZO SQ SCH; +RITUXIMAB-ABBS 500 MG, RITUXIMAB-ABBS 200 MG in NS (IVPB) CANCER CENTER ONLY 150 ML IV SCH; +[UNRECOGNIZED DRUG - REMARK] IV PRN; +diphenhydrAMINE 25 MG TAB (BENADRYL) CANCER CENTER PO SCH; +diphenhydrAMINE 50 MG/ML INJ (CANCER CENTER) IV PRN; +vinCRIStine SULFATE 1 MG in NS (IVPB) CANCER CENTER 50 ML IV SCH
[2021-11-17 14:48] LABS: BASOPHILS # (AUTO) 0.1 10^3/uL (0.0-0.1); BASOPHILS % (AUTO) 0 % (0-10); EOSINOPHILS # (AUTO) 0.7 10^3/uL (0.0-0.3); EOSINOPHILS % (AUTO) 3 % (0-10); HEMATOCRIT 39 % (35-52); HEMOGLOBIN 12.5 g/dL (11.5-16.0); LYMPHOCYTES # (AUTO) 3.8 10^3/uL (1.0-4.0); LYMPHOCYTES % (AUTO) 17 % (12-44); MEAN CORPUSCULAR HEMOGLOBIN 30 pg (25-34); MEAN CORPUSCULAR HGB CONC 32 g/dL (32-36); MEAN CORPUSCULAR VOLUME 94 fL (80-99); MEAN PLATELET VOLUME 9.1 fL (9.0-12.2); MONOCYTES # (AUTO) 1.5 10^3/uL (0.0-1.0); MONOCYTES % (AUTO) 7 % (0-12); NEUTROPHILS # (AUTO) 15.8 10^3/uL (1.8-7.8); NEUTROPHILS % (AUTO) 71 % (42-75); PLATELET COUNT 283 10^3/uL (130-400); WHITE BLOOD COUNT 22.2 10^3/uL (4.3-11.0)
[2021-11-17 15:04] LABS: CALCIUM 9.2 MG/DL (8.5-10.1); CREATININE SERUM 0.82 MG/DL (0.60-1.30); POTASSIUM 4.1 MMOL/L (3.6-5.0)
== END 2021-11-21 | disposition home or self-care (01) ==
LOC: ONC 14:33
PROVIDERS: ATTEND Internal Medicine Hematology & Oncology
DX: Z51.11 Encounter for antineoplastic chemotherapy (principal); C83.30 Diffuse large B-cell lymphoma, unspecified site; C82.31 Follicular lymphoma grade IIIa, lymph nodes of head, face, and neck; E11.9 Type 2 diabetes mellitus without complications; E78.00 Pure hypercholesterolemia, unspecified
CPT/HCPCS: 36591; 80048; 80053; 80074; 83615; 83735; 84550; 85025; 96367; 96372; 96375; 96411; 96413; 96415; 96417; 99213; 99214

== ENCOUNTER 2021-12-02 14:49 | Outpatient (RCR) | payer MEDICAID ==
[2021-12-01 09:42] LABS: BASOPHILS # (AUTO) 0.1 10^3/uL (0.0-0.1); BASOPHILS % (AUTO) 1 % (0-10); EOSINOPHILS # (AUTO) 0.3 10^3/uL (0.0-0.3); EOSINOPHILS % (AUTO) 3 % (0-10); HEMATOCRIT 37 % (35-52); HEMOGLOBIN 11.7 g/dL (11.5-16.0); LYMPHOCYTES % (AUTO) 30 % (12-44); MEAN CORPUSCULAR HEMOGLOBIN 30 pg (25-34); MEAN CORPUSCULAR HGB CONC 32 g/dL (32-36); MEAN CORPUSCULAR VOLUME 95 fL (80-99); MEAN PLATELET VOLUME 9.3 fL (9.0-12.2); MONOCYTES # (AUTO) 0.9 10^3/uL (0.0-1.0); MONOCYTES % (AUTO) 9 % (0-12); NEUTROPHILS # (AUTO) 5.7 10^3/uL (1.8-7.8); NEUTROPHILS % (AUTO) 57 % (42-75); PLATELET COUNT 396 10^3/uL (130-400)
[2021-12-01 09:57] LABS: ALBUMIN 3.8 GM/DL (3.2-4.5); BILIRUBIN,TOTAL 0.3 MG/DL (0.1-1.0); CREATININE SERUM 0.9 MG/DL (0.60-1.30); MAGNESIUM 1.9 MG/DL (1.6-2.4); TOTAL PROTEIN 6.8 GM/DL (6.4-8.2); URIC ACID 5.2 MG/DL (2.6-7.2)
[~2021-12-02 14:49] MED LIST changes: -[UNRECOGNIZED DRUG - REMARK] IV PRN; -diphenhydrAMINE 50 MG/ML INJ (CANCER CENTER) IV PRN
== END 2021-12-22 | disposition home or self-care (01) ==
LOC: ONC 14:49
PROVIDERS: ATTEND Internal Medicine Hematology & Oncology
DX: Z51.11 Encounter for antineoplastic chemotherapy (principal); C83.30 Diffuse large B-cell lymphoma, unspecified site; C82.31 Follicular lymphoma grade IIIa, lymph nodes of head, face, and neck; E11.9 Type 2 diabetes mellitus without complications; E78.00 Pure hypercholesterolemia, unspecified
CPT/HCPCS: 80053; 83615; 83735; 84550; 85025; 96372; 96411; 96413; 96415; 96417

== ENCOUNTER → 2022-03-12 | Outpatient (CLI) | payer MEDICAID ==
[~2022-03-12] MED LIST changes: -ACETAMINOPHEN 325 MG TAB (TYLENOL) CANCER CTR PO PRN; -CYCLOPHOSPHAMIDE INJECTION 800 MG in NS (IVPB) CANCER CENTER 250 ML IV SCH; +FLUC100T10 PO; -FLUC100T6 PO; -FOSAPREPITANT (CANCER CENTER) 150 MG in NS (IVPB) CANCER CENTER ONLY 150 ML IV SCH; -NS IV 1000 ML (CANCER CTR) IV SCH; -PEGFILGRASTIM-BMEZ 6 MG/0.6 ML ZIEXTENZO SQ SCH; -RITUXIMAB-ABBS 500 MG, RITUXIMAB-ABBS 200 MG in NS (IVPB) CANCER CENTER ONLY 150 ML IV SCH; -diphenhydrAMINE 25 MG TAB (BENADRYL) CANCER CENTER PO SCH; -vinCRIStine SULFATE 1 MG in NS (IVPB) CANCER CENTER 50 ML IV SCH
--- NOTE | 2022-03-12 17:11 | Diagnostic Imaging Report ---
INDICATION: Cough. Right basilar crackles. COMPARISON: 09/15/2021. FINDINGS: Frontal and lateral radiographic views of the chest were obtained and demonstrate interval development of subtle asymmetric prominence of parenchymal opacities in the right upper lobe. Remainder of the lungs are clear. There is no large effusion or pneumothorax. Cardiac silhouette and pulmonary vasculature are within normal limits. Right sided Port-A-Cath is present with tip in the mid SVC. Osseous structures show no adverse interval changes. IMPRESSION: Findings suspicious for patchy infiltrate of the right upper lobe. Follow-up is advised. Dictated by: Dictated on workstation # [id number]
== END ==
LOC: RAD 16:02
PROVIDERS: ATTEND Family Medicine
DX: R05.9 Cough, unspecified (principal); R09.89 Other specified symptoms and signs involving the circulatory and respiratory systems
CPT/HCPCS: 71046

== ENCOUNTER 2022-12-23 05:52 | Outpatient (CLI) | payer MEDICAID ==
[~2022-12-23] VITALS: Ht 162.6 cm; Wt 83.6 kg
[2022-12-24] MEDS ORDERED: FLUO40CA12 PO (10:43)
[2022-12-24] MEDS ORDERED: VITA100033 PO (10:43)
[2022-12-24] MEDS ORDERED: TIZA-186 PO (10:43)
[2022-12-24] MEDS ORDERED: ASPI-999 PO (10:43)
[2022-12-24] MEDS ORDERED: CHOL200059 PO (10:43)
[2022-12-24] MEDS ORDERED: PANT40TA52 PO (10:43)
[2022-12-24] MEDS ORDERED: SUCR1TAB PO (10:43)
[2022-12-24] MEDS ORDERED: SPIR25TA5 PO (10:43)
[2022-12-24] MEDS ORDERED: METH150T PO (10:43)
[2022-12-24] MEDS ORDERED: FENT1PAT11 TD (10:43)
[2022-12-24] MEDS ORDERED: GABA300C PO (10:43)
== END 2022-12-24 10:59 | disposition home or self-care (01) ==
LOC: PREOP 05:52
PROVIDERS: ATTEND Surgery
DX: Z01.818 Encounter for other preprocedural examination (principal)

== ENCOUNTER 2022-12-30 11:25 | Day surgery (SDC) | payer MEDICAID ==
[~2022-12-30] VITALS: Ht 163 cm; Wt 83.6 kg
[~2022-12-30 11:25] MED LIST changes: +GABA300C PO; +PANT40TA52 PO; +SPIR25TA5 PO; +SUCR1TAB PO; +TIZA-186 PO; +VITA100033 PO
[2022-12-30] MEDS ORDERED: LACTATED RINGERS 1,000 ML IV STA (11:28)
[2022-12-30] MEDS ORDERED: HURRICAINE EXT TUBE (BENZOCAINE) XX PRN (11:30)
[2022-12-30] MEDS ORDERED: LIDOCAINE JELLY 2% 6 ML SYRINGE MM PRN (11:30)
[2022-12-30] MEDS ORDERED: HURRICAINE EXT TUBE (BENZOCAINE) ONE (11:33)
[2022-12-30] MEDS ORDERED: LACTATED RINGERS 1,000 ML IV ONE (11:33)
[2022-12-30 12:15] VITALS: BP 133/82
[2022-12-30] MEDS ORDERED: LIDOCAINE JELLY 2% 6 ML SYRINGE ONE (12:28)
--- NOTE | 2022-12-30 12:31 | Progress Note-Pre Operative ---
Pre-Operative Progress Note Date of Available H&P: Dec 30, 2022 Date H&P Reviewed: Dec 30, 2022 Time H&P Reviewed: 12:00 History & Physical: No changes noted Pre-Operative Diagnosis: dysphagia, screening colo VERA LEBLANC MD Dec 30, 2022 12:31
--- NOTE | 2022-12-30 12:32 | Discharge Inst-Surgical ---
D/C Lap Instructions-DEANA Follow Up Activity as tolerated High Fiber Diet 25g or more per day Avoid Alcohol, Caffeine, Spicy [place] and Acid foods. Drink 64 fluid oz or more of fluids per day. Symptoms to Report: Fever over 101 degree F, Nausea/Vomiting If any problems/questions: Contact your physician or go to Emergency Room VERA LEBLANC MD Dec 30, 2022 12:32
[2022-12-30] MEDS ORDERED: ONDANSETRON 4 MG/2 ML (SDV) Z0FRAN IVP PRN (12:45)
[2022-12-30] MEDS ORDERED: ONDANSETRON 4 MG (ZOFRAN) ORAL DISSOLVE TAB PO PRN (12:45)
[2022-12-30] MEDS ORDERED: PROPOFOL INJECTION 50 ML IV ONE (13:23)
[2022-12-30] MEDS ORDERED: GLYCOPYRROLATE 0.2 MG/ML (ROBINUL) 2 ML VIAL ONE (14:17)
[2022-12-30] MEDS ORDERED: proPOfol 200 MG/20 ML (DIPRIVAN) VIAL IV ONE (14:33)
[2022-12-30 14:35] VITALS: BP 123/58
--- NOTE | 2022-12-30 14:38 | Anesthesia-General Post-Op ---
MAC Patient Condition Mental Status/LOC: Same as Preop Cardiovascular: Satisfactory Nausea/Vomiting: Absent Respiratory: Satisfactory Pain: Controlled Complications: Absent Post Op Complications Complications None Follow Up Care/Instructions Patient Instructions None needed. Anesthesiology Discharge Order Discharge Order Patient is doing well, no complaints, stable vital signs, no apparent adverse anesthesia problems. No complications reported per nursing. JAH GARCIA DO Dec 30, 2022 14:38
[2022-12-30 14:40] VITALS: BP 113/58
[2022-12-30] MEDS ORDERED: OMEP40CA6 PO (14:55)
[2022-12-30 15:10] VITALS: BP 116/60
[2022-12-30 15:25] VITALS: BP 116/60
--- NOTE | 2022-12-30 16:01 | Progress Note-Post Operative ---
Post-Operative Progess Note Surgeon (s)/Rail Car Loader (s) Surgeon VERA LEBLANC MD Rail Car Loader: none Pre-Operative Diagnosis dysphagia, screening colo Post-Operative Diagnosis reflux esophagitis(grade B-C), mild dist esoph stricture, small HH(1.5cm), severe diffuse gastritis. chronic stage 2 ext and int hemorrhoid, mild-mod sig diverticulosis, descending colon polyp(4mm). Procedure & Operative Findings Date of Procedure 12/30/22 Procedure Performed/Findings EGD with bx and balloon dilatation. Colonoscopy with snare polypectomy Anesthesia Type mac Estimated Blood Loss Estimated blood loss (mL): minimal Specimens/Packing Specimens Removed ge jxn, antrum VERA LEBLANC MD Dec 30, 2022 16:01
--- NOTE | 2022-12-30 19:30 | OPERATIVE REPORT ---
DATE OF SERVICE: 12/30/2022 ATTENDING PRIMARY CARE PHYSICIAN: Dr. Vika Renteria. PREOPERATIVE DIAGNOSES: Gastroesophageal reflux disease, dysphagia, screening colonoscopy. POSTOPERATIVE DIAGNOSES: Reflux esophagitis, [place] between grade B and C with a mild distal esophageal stricture, small hiatal hernia approximately 1.5 cm in size, severe diffuse gastritis, no distal obstructions. Chronic stage II, external and internal hemorrhoids, mild sigmoid diverticulosis, descending colonic polyp approximately 4 mm in size. PROCEDURE: EGD with biopsy and balloon dilatation. Colonoscopy with snare polypectomy. SURGEON: Dr. Leblanc. ANESTHESIA: Monitored anesthesia care. ESTIMATED BLOOD LOSS: Minimal. FINDINGS: Reflux esophagitis, [place] between grade B and C with a mild distal esophageal stricture, small hiatal hernia approximately 1.5 cm in size, severe diffuse gastritis, no distal obstructions. Chronic stage II, external and internal hemorrhoids, mild sigmoid diverticulosis, descending colonic polyp approximately 4 mm in size. DISPOSITION: The patient tolerated the procedure well. INDICATIONS: The patient is a 62-year-old female known to us. We had done previous endoscopies on her before back in 2011. At that time, she was found to have significant reflux esophagitis as well as distal esophageal stricture. A colonoscopy did show chronic stage II, external and internal hemorrhoids as well as a mild sigmoid diverticulosis. She reports that her reflux has returned despite being on Protonix. She also reports dysphagia for some types of foods. DESCRIPTION OF PROCEDURE: The patient was brought to the endoscopy suite and laid in the left lateral decubitus position. After adequate IV pain and sedative medications and monitored anesthesia care, the mouthpiece was applied. The endoscope was then placed into the mouth, visualizing the pharynx and hypopharyngeal region. Vocal cords, epiglottis and vallecula identified and appeared to be normal. The endoscope was then gently intubated into the esophageal opening and esophagus insufflated. The endoscope was then advanced through the first, second and third portion of the esophagus to the level of the GE junction, a reflux esophagitis [place] between grade B and C identified with a mild distal esophageal stricture. A biopsy was taken with forceps with visualization of good hemostasis. The endoscope was then advanced into the stomach. The endoscope retroflexed visualizing small hiatal hernia approximately 1.5 cm in size. There was a moderate severe diffuse gastritis. No formal ulcerations polyps or any neoplasms. A biopsy was taken of the antrum to rule out H. pylori with visualization of good hemostasis. The endoscope was then advanced to the pylorus and the first and second portions of the duodenum, which appeared normal with no distal obstructions. The balloon was then placed in the stomach and pulled back to the area of the stricture. The balloon was then placed in the stomach and pulled back to the area of the stricture. We then proceeded with a graded dilatation from 2, 4, then eventually 6 atmospheres of pressure or 20 mm in luminal diameter with moderate resistance and left this in place for 60 seconds. The balloon was then desufflated and removed with visualization of good hemostasis as well as no mucosal tears. The endoscope was then slowly withdrawn while taking a second look and suctioning of residual air with no additional findings. A digital rectal examination was performed which revealed chronic stage II, external and internal hemorrhoids. Normal sphincter tone was felt and there were no palpable masses. The endoscope was then intubated into the anus, rectum gently insufflated. The endoscope was then advanced through the valves of [place] of the rectum with no lesions identified. Through the sigmoid colon, a mild to moderate sigmoid diverticulosis identified. At the descending colon, a pedunculated polyp approximately 4 mm in size was identified. This was completely removed at its base using a snare and electrocautery with visualization of good hemostasis. The endoscope was then advanced to the remainder of the descending, transverse and ascending colon to the cecum, which appeared normal. The endoscope was then slowly withdrawn while taking a second look and suctioning of residual air with no additional findings. The patient tolerated the procedure well. She will need to proceed with the necessary lifestyle and dietary accommodation including small and more frequent meals, avoidance of eating at night as well as head elevation while lying supine. She also needs to avoid caffeinated beverages, spicy, greasy and acidic foods. We will have her continue with Protonix daily; however, add omeprazole 40 mg daily to be taken at a different time during the day. We will also recommend a high-fiber diet with a fiber supplement, which should equal or exceed 25 grams daily as well as significant amounts of water to promote soft consistency stools on a daily basis. Depending on what the pathology of the polyp shows, if this is a hyperplastic polyp or a tubular adenoma, she may wait another 10 years; however, if there is any villous component, we will have her follow up in 3 years. Job ID: [id number] DocumentID: [id number] Dictated Date: 12/30/2022 14:42:38 [place] Operator Date: 12/30/2022 19:28:00 Dictated By: VERA LEBLANC MD
== END 2022-12-30 15:25 | disposition home or self-care (01) ==
LOC: ENDO 11:25
PROVIDERS: ATTEND Surgery
DX: Z12.11 Encounter for screening for malignant neoplasm of colon (principal); D12.4 Benign neoplasm of descending colon; K21.00 Gastro-esophageal reflux disease with esophagitis, without bleeding; K22.2 Esophageal obstruction; K44.9 Diaphragmatic hernia without obstruction or gangrene; K29.70 Gastritis, unspecified, without bleeding; K57.30 Diverticulosis of large intestine without perforation or abscess without bleeding; K64.1 Second degree hemorrhoids; K64.4 Residual hemorrhoidal skin tags; K31.89 Other diseases of stomach and duodenum; K27.9 Peptic ulcer, site unspecified, unspecified as acute or chronic, without hemorrhage or perforation; Z79.899 Other long term (current) drug therapy; Z80.0 Family history of malignant neoplasm of digestive organs; Z87.891 Personal history of nicotine dependence

== ENCOUNTER → 2023-06-18 | Outpatient (CLI) | payer MEDICAID ==
[~2023-06-18] MED LIST changes: -ORPH100T PO; +ORPH100T3 PO; +POTA-330 PO; -POTA-51 PO
[2023-06-18 15:19] LABS: ABG BASE EXCESS 1.1 MMOL/L (-2.5-2.5); ABG OXYGEN SATURATION 97 % (94-100); ABG PCO2 49 MMHG (35-45); ABG PH 7.35 (7.37-7.43); ABG PO2 70 MMHG (79-93); ABG TCO2 27.9 MMOL/L (21.0-31.0)
[2023-06-18 15:23] LABS: ALLENS TEST POSITIVE; INSPIRED O2 4 L; PATIENT TEMP 36; VENTILATOR NO
== END ==
LOC: CARD 13:39
PROVIDERS: ATTEND Internal Medicine Critical Care Medicine
DX: J44.9 Chronic obstructive pulmonary disease, unspecified (principal); J96.11 Chronic respiratory failure with hypoxia
CPT/HCPCS: 36600; 82805; 93306